=== PATIENT | female | born 1990 | race Two or more races ===

== ENCOUNTER 2022-12-10 10:46 | Outpatient (OUT) | payer OTHER, SELFPAY ==
--- NOTE | 2022-12-10 10:49 | US_ITS ---
[address] [address] Patient Name: ORION HARPER MRN: [id number] date: 1990 Sex: F Assigned Patient Location: Current Patient Location: Accession/Order Number: [id number] Exam Date: 12/10/2022 10:55 Report Date: 12/11/2022 14:02 At the request of: MONTY VERA Procedure: US pelvis w/ transvaginal PROCEDURE: US pelvis w/ transvaginal, 12/10/2022 10:55 AM EDT CLINICAL INDICATIONS: Right-sided pelvic pain 3 para 3 Partial hysterectomy, history of ovarian cyst COMPARISON: 12/21/2021 TECHNIQUE: Transabdominal, transvaginal pelvic sonogram, grayscale color and spectral assessment. FINDINGS: Uterus: Surgically absent. Vaginal cuff is symmetric. Right ovary: 2.5 x 1.6 x 1.7 cm, volume 4 mL. Subcentimeter anechoic cyst noted, benign follicle favored. Normal sonographic morphology. Left ovary: 3.3 x 2.8 x 2.9 cm, volume 14 mL. Left ovarian cyst measure up to 2.2 x 2.2 x 2.5 cm. Single internal septation or daughter cyst is seen. No mural solid component or abnormal vascular pattern. DUPLEX PELVIC VASCULATURE: There is intact flow within the ovarian tissue bilaterally by color-flow assessment. Arterial spectral tracing is identified from within. Right resistive index 0.32, left 0.39. No significant free fluid. US/US pelvis w/ transvaginal IMPRESSION: 1. Surgical absence of the uterus 2. Normal right ovarian sonographic morphology with subcentimeter follicle 3. Dominant left ovarian cyst up to 2.5 cm. Daughter cyst or single internal septation noted. Benign functional cyst favored, not meeting criteria for further characterization. 4. No sonographic sign of adnexal torsion Electronically authenticated by: KYLAH MARTIN Date: 12/11/2022 14:02
== END 2022-12-10 10:47 | disposition home or self-care (01) ==
LOC: US 10:46
PROVIDERS: PCP Family Medicine; Visit Provider Obstetrics & Gynecology
DX: R10.2 Pelvic and perineal pain (principal); N83.202 Unspecified ovarian cyst, left side; N83.201 Unspecified ovarian cyst, right side
CPT/HCPCS: 76830; 76856

== ENCOUNTER 2022-12-27 10:17 | Outpatient (OUT) | payer OTHER, SELFPAY ==
--- NOTE | 2022-12-27 10:30 | CT_ITS ---
The [address] [address] Patient Name: ORION HARPER MRN: [facility]:[id number] date: 1990 Sex: F Assigned Patient Location: CT Current Patient Location: CT Accession/Order Number: [id number] Exam Date: 12/27/2022 10:27 Report Date: 12/27/2022 10:47 At the request of: GIOVANI HAGEN Procedure: CT head/brain wo con CT head/brain wo con, 12/27/2022 10:27 AM EDT, OH001 INDICATION: Nonintractable episodic headache R51.9 COMPARISON: None. TECHNIQUE: CT images of the brain from skull base to vertex, including portions of the face and sinuses, were obtained without contrast. Supplemental 2D reformatted images were generated and reviewed as needed. Dose reduction techniques were achieved by using automated exposure control and/or adjustment of mA and/or kV according to patient size and/or use of iterative reconstruction technique. FINDINGS: The ventricles and sulci are within normal limits for the patient's age. No significant white matter disease or acute ischemia. No mass effect, acute hemorrhage, midline shift, hydrocephalus or exta-axial fluid collection. The basal cisterns are patent. The calvarium appears intact. The visualized paranasal sinuses are clear. The mastoids are clear. CT/CT head/brain wo con IMPRESSION: No CT evidence of acute intracranial abnormality. Electronically authenticated by: MONTA[place] MOLINA Date: 12/27/2022 10:47
== END 2022-12-27 10:18 | disposition home or self-care (01) ==
LOC: CT 10:18
PROVIDERS: PCP Family Medicine; Visit Provider Family Medicine
DX: R51.9 Headache, unspecified (principal)
CPT/HCPCS: 70450

== ENCOUNTER 2023-02-06 11:03 | Outpatient (OUT) | payer OTHER, SELFPAY ==
--- NOTE | 2023-02-06 11:33 | ECG_ITS ---
The [facility] Test Date: 2023-02-06 Pat Name: ORION HARPER Department: Room: - Gender: Female Rn Social Services: : 1990 Requested By: MONTY VERA Order Number: [id number] Reading MD: LUÍS POWELL Measurements Intervals [place] Rate: 70 P: 78 ME: 159 QRS: 72 QRSD: 88 T: 61 QT: 422 QTc: 458 Interpretive Statements SINUS RHYTHM WITH SINUS ARRHYTHMIA Electronically Signed On 02-06-2023 20:04:15 EDT by LUÍS POWELL No previous ECG available for comparison Signed on behalf of LUÍS POWELL On 02-07-2023 11:21:52 EDT by ALINA JUNG
--- NOTE | 2023-02-06 11:41 | PM.PRESUREVA ---
History of Present Illness History of Present Illness Chief complaint: pelvic pain, endometriosis Narrative: Patient presents for preadmission testing. Please see HPI from Dr. Starr dated 01/16/2023. Review of Systems ROS Narrative REVIEW OF SYSTEMS: Negative except as stated in HPI, ten or more systems reviewed. Constitutional: No fever , chills, weakness ENT: No sore throat or epistaxis Cardiovascular: No edema, chest pain, palpitations, or activity intolerance Respiratory: No shortness of breath, cough, or wheezing Musculoskeletal: No joint pain or swelling Genitourinary: No dysuria or hematuria Neurological: No numbness, tingling, weakness, or headache Psychiatric: No mood changes [facility]SH [facility] Medical History (Updated 02/06/23 @ 11:40 by Lindsey Quintero NP) Abnormal involuntary movement ?R25.9 - Unspecified abnormal involuntary movements (ICD-10) Anemia ?D64.9 - Anemia, unspecified (ICD-10) Anxiety ?F41.9 - Anxiety disorder, unspecified (ICD-10) Asthma ?J45.909 - Unspecified asthma, uncomplicated (ICD-10) Attention deficit hyperactivity disorder ?F90.9 - Attention-deficit hyperactivity disorder, unspecified type (ICD-10) Bipolar 1 disorder ?F31.9 - Bipolar disorder, unspecified (ICD-10) Constipation ?K59.00 - Constipation, unspecified (ICD-10) COVID-19 ?U07.1 - COVID-19 (ICD-10) Depression ?F32.A - Depression, unspecified (ICD-10) Diverticulitis ?K57.92 - Diverticulitis of intestine, part unspecified, without perforation or abscess without bleeding (ICD-10) Dizziness ?R42 - Dizziness and giddiness (ICD-10) Dyspareunia Dysphagia ?R13.10 - Dysphagia, unspecified (ICD-10) Dysuria ?R30.0 - Dysuria (ICD-10) Elevated liver enzymes ?R74.8 - Abnormal levels of other serum enzymes (ICD-10) Endometriosis ?N80.9 - Endometriosis, unspecified (ICD-10) Enlarged thyroid ?E04.9 - Nontoxic goiter, unspecified (ICD-10) Gastroparesis ?K31.84 - Gastroparesis (ICD-10) GERD (gastroesophageal reflux disease) ?K21.9 - Gastro-esophageal reflux disease without esophagitis (ICD-10) Gestational hypertension ?O13.9 - Gestational [-induced] hypertension without significant proteinuria, unspecified trimester (ICD-10) Headache ?R51.9 - Headache, unspecified (ICD-10) Heartburn ?R12 - Heartburn (ICD-10) HELLP (hemolytic anemia/elev liver enzymes/low platelets in ) ?O14.20 - HELLP syndrome (HELLP), unspecified trimester (ICD-10) History of blood transfusion ?Z92.89 - Personal history of other medical treatment (ICD-10) Hypercholesterolemia ?E78.00 - Pure hypercholesterolemia, unspecified (ICD-10) Hyperglycemia ?R73.9 - Hyperglycemia, unspecified (ICD-10) Hypersexuality ?F52.8 - Other sexual dysfunction not due to a substance or known physiological condition (ICD-10) IBS (irritable bowel syndrome) ?K58.9 - Irritable bowel syndrome without diarrhea (ICD-10) Insomnia ?G47.00 - Insomnia, unspecified (ICD-10) Kidney stones ?N20.0 - Calculus of kidney (ICD-10) Migraine ?G43.909 - Migraine, unspecified, not intractable, without status migrainosus (ICD-10) Mood swings ?R45.86 - Emotional lability (ICD-10) ENGLISH (nonalcoholic steatohepatitis) ?K75.81 - Nonalcoholic steatohepatitis (ENGLISH) (ICD-10) Osteoarthritis, knee ?M17.9 - Osteoarthritis of knee, unspecified (ICD-10) Ovarian cyst ?N83.209 - Unspecified ovarian cyst, unspecified side (ICD-10) Pelvic pain ?R10.2 - Pelvic and perineal pain (ICD-10) Poor concentration ?R41.840 - Attention and concentration deficit (ICD-10) 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 - depression (ICD-10) PTSD (post-traumatic stress disorder) ?F43.10 - Post-traumatic stress disorder, unspecified (ICD-10) Sciatica ?M54.30 - Sciatica, unspecified side (ICD-10) Sinusitis ?J32.9 - Chronic sinusitis, unspecified (ICD-10) Skin pain ?R20.8 - Other disturbances of skin sensation (ICD-10) Syncope ?R55 - Syncope and collapse (ICD-10) Tachycardia ?R00.0 - Tachycardia, unspecified (ICD-10) Urinary frequency ?R35.0 - Frequency of micturition (ICD-10) Urinary tract infection ?N39.0 - Urinary tract infection, site not specified (ICD-10) Vitamin D deficiency ?E55.9 - Vitamin D deficiency, unspecified (ICD-10) Surgical History (Updated 02/06/23 @ 11:25 by Lindsey Quintero NP) History of section ?Z98.891 - History of uterine scar from previous surgery (ICD-10) History of colonoscopy ?Z98.890 - Other specified postprocedural states (ICD-10) History of esophagogastroduodenoscopy (EGD) ?Z98.890 - Other specified postprocedural states (ICD-10) History of hysterectomy ?Z90.710 - Acquired absence of both cervix and uterus (ICD-10) Family History (Updated 02/06/23 @ 11:25 by Lindsey Quintero NP) Other Family history of diabetes mellitus Family history of hypertension Family history of ovarian cancer Social History (Updated 02/06/23 @ 11:21 by Lindsey Quintero NP) Within the past year, how often did you have a drink containing alcohol: 2-4 times a month Smoking status: Former smoker Non-prescribed substance use: denies use 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 Highest level of school completed/degree received: high school graduate Meds Home Medications and Allergies Home Medications Medication Instructions Recorded Confirmed Type albuterol sulfate 90 mcg/actuation 2 inh inhalation Q4H PRN shortness 02/06/23 02/06/23 History aerosol inhaler of breath or wheezing alprazolam 0.25 mg tablet 0.25 mg PO BID 02/06/23 02/06/23 History bupropion HCl 150 mg tablet,12 hr 150 mg PO BID 02/06/23 02/06/23 History sustained-release cariprazine 4.5 mg capsule 4.5 mg PO QPM 02/06/23 02/06/23 History (Vraylar) epinephrine 0.3 mg/0.3 mL 0.3 ml subcut Q4H PRN anaphylaxis 02/06/23 02/06/23 History injection, auto-injector lisdexamfetamine 50 mg capsule 50 mg PO QDAY 02/06/23 02/06/23 History (Vyvanse) Allergies Allergy/AdvReac Type Severity Reaction Status Date / Time cat dander Allergy Verified 02/06/23 11:16 Iodinated Contrast Media Allergy Hives Verified 02/06/23 11:16 Exam Narrative Exam Narrative: Constitutional: Awake, alert, comfortable, well-appearing, nontoxic, interactive, vital signs as charted Head: Normocephalic, atraumatic Neck: Supple, normal appearance, normal range of motion, no meningeal signs, no lymphadenopathy Respiratory: No respiratory distress, breath sounds clear Cardiovascular: Regular rate and rhythm, strong and regular heart tones Abdomen: Nontender, normal bowel sounds, soft, no CVA tenderness Musculoskeletal: Normal gait, no swelling or edema Skin: No rashes or induration, no lesions, only visible skin inspected Neuro: No neurological deficits, normal sensation Psychiatric: Oriented ?3, normal affect Assessment and Plan Assessment and Plan (1) Endometriosis: (2) Dyspareunia: (3) Pelvic pain: Plan Diagnostic laparoscopy, possible LEENA, possible FOE, possible bilateral salpingo-oophorectomy scheduled with Dr. Starr 02/10/2023
== END 2023-02-06 11:04 | disposition home or self-care (01) ==
PROVIDERS: PCP Family Medicine; Visit Provider Obstetrics & Gynecology
DX: Z01.818 Encounter for other preprocedural examination (principal); R10.2 Pelvic and perineal pain; N94.10 Unspecified dyspareunia; N80.9 Endometriosis, unspecified
CPT/HCPCS: 93005; G0463

== ENCOUNTER 2023-02-06 14:03 | Outpatient (OUT) | payer OTHER, SELFPAY ==
[2023-02-06 14:41] LABS: Estimated Average Glucose 85 mg/dL; Glycohemoglobin A1C 4.6 % (4.5-6.2)
[2023-02-06 14:46] LABS: Alanine Aminotransferase 35 U/L (14-59); Albumin Globulin Ratio 1.3; Albumin Level 4.4 g/dL (3.4-5.0); Alkaline Phosphatase 70 U/L (46-116); Aspartate Amino Transferase 17 U/L (15-37); BUN Creatinine Ratio 10.9; Bilirubin Total 0.7 mg/dL (0.2-1.0); Calcium 9.3 mg/dL (8.5-10.1); Carbon Dioxide 28.2 mmol/L (21.0-32.0); Chloride 104 mmol/L (98-107); Chol HDL Ratio 2.8; Cholesterol 180 mg/dL (<=200); Estimated GFR (African America >60 (>=60); Estimated GFR (Non-African Ame >60 (>=60); Globulin 3.5 g/dL; Glucose 88 mg/dL (74-106); HDL Cholesterol 65 mg/dL (40-60); Potassium 3.2 mmol/L (3.5-5.1); Sodium 139 mmol/L (136-145); Total Protein 7.9 g/dL (6.4-8.2); Triglycerides 79 mg/dL (<=150); VLDL CHOLESTEROL 15.8 mg/dL
== END 2023-02-06 14:04 | disposition home or self-care (01) ==
LOC: LAB 14:04
PROVIDERS: PCP Family Medicine; Visit Provider Physician Assistant
DX: Z00.00 Encounter for general adult medical examination without abnormal findings (principal); Z01.818 Encounter for other preprocedural examination; R10.2 Pelvic and perineal pain; N94.10 Unspecified dyspareunia; N80.9 Endometriosis, unspecified; R74.8 Abnormal levels of other serum enzymes; E78.00 Pure hypercholesterolemia, unspecified; R73.9 Hyperglycemia, unspecified; E55.9 Vitamin D deficiency, unspecified
CPT/HCPCS: 36415; 80053; 80061; 82306; 83036; 93005; G0463

== ENCOUNTER 2023-02-10 08:41 | Day surgery (SDC) | payer OTHER, SELFPAY ==
--- NOTE | 2023-02-06 11:26 | ECG_ITS ---
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
[2023-02-06 11:33] VITALS: BP 121/85; PULSE 74; RESP 16; TEMP 36.2; O2SAT 100; BMI 26.2
[2023-02-10] VITALS (10 sets, daily range): BP systolic 107–127; BP diastolic 65–84; PULSE 75–103; RESP 11–18; TEMP 36.3–36.8; O2SAT 97–100; BMI 25.9
[2023-02-10 08:54] LABS: Basophils Percent Auto 0.3 % (0.2-2.0); Eosinophils Absolute Auto 0.2 10^3/uL (0.0-0.7); Hematocrit 41.7 % (36.0-48.0); Hemoglobin 14.4 g/dL (12.0-16.0); Immature Granulocytes Abs Auto 0.01 10^3/uL (0.00-0.03); Immature Granulocytes Pct Auto 0.2 % (0.0-0.5); Lymphocytes Absolute Auto 2.2 10^3/uL (1.2-3.8); Lymphocytes Percent Auto 36.1 % (20.5-60.0); Mean Corpuscular HGB Conc 34.5 g/dL (29.9-35.2); Mean Corpuscular Hemoglobin 32.9 pg (26.7-34.0); Mean Corpuscular Volume 95.2 fL (81.0-99.0); Mean Platelet Volume 11.3 fL (9.5-13.5); Monocytes Absolute Auto 0.3 10^3/uL (0.3-0.8); Monocytes Percent Auto 5.7 % (1.7-12.0); Neutrophils Absolute Auto 3.2 10^3/uL (1.4-6.5); Neutrophils Percent Auto 53.7 % (43.0-75.0); Platelet Count 213 10^3/uL (150-450); Red Blood Count 4.38 10^6/uL (4.20-5.40); Red Cell Distribution Width 11.9 % (11.0-15.0)
[2023-02-10] MEDS: LACTATED RINGER'S SOLUTION 1,000 ML 50 ML IV (09:32)
[2023-02-10] MEDS: LACTATED RINGER'S SOLUTION 1,000 ML 150 ML IV (12:10)
--- NOTE | 2023-02-10 12:10 | PM.ONB ---
Brief Operative Note Date of procedure: 02/10/23 Pre-op diagnosis: pelvic pain Post-op diagnosis: same as pre-op Procedure: NAME OF PROCEDURE: [diagnostic laparoscopy ] PROCEDURE: The patient was taken back to the Operating Room where she was placed in dorsal lithotomy position after given general anesthesia. The patient was prepped and draped in normal sterile fashion. A sponge stick was placed into the patient's vagina. Attention was turned to the patient's abdomen, where a small umbilical incision was made. The fascia was tented using Harvey clamps and the fascia was entered sharply. Confirmation of intraabdominal placement of the 10 mm port was confirmed under direct visualization using a laparoscope. The patient's abdomen was then insufflated using CO2 gas with approximately 4 liters. A second port was placed left laterally, this was done under direct visualization with a 5 mm port. Survey of the patient's abdomen demonstrated normal liver and gallbladder. Survey of the patient's pelvic anatomy demonstrated normal appearing rt and lt ovary, absent uterus and tubes. No endometrial implants could be noted, no evidence of any pelvic disease was seen, normal appearing pelvic cavity. All instruments were removed from the patient's abdomen. The patient's abdomen was deinsufflated of CO2 gas. The patient tolerated the procedure well. Sponge stick was removed from the patient's vagina. The patient's infraumbilical fascia was closed using #0 Vicryl on a GI needle. The patient's skin was closed laterally and infraumbilically using 4-0 Vicryl. The patient tolerated the procedure well. Sponge, lap and needle counts were correct x 2. The patient was taken to Recovery Room in stable condition.Clips from prior surgery noted adhered to bladder, the clips were grasped and gently removed Anesthesia: GUERO Surgeon: Darwin Starr Special Effects Artist: Melly Glover Estimated blood loss (mL): 5 Pathology: none sent Condition: stable Disposition: PACU
[2023-02-10] MEDS: HYDROCODONE/ACET 5-325 MG TABLET 1 TAB PO (13:02)
== END 2023-02-10 13:59 | disposition home or self-care (01) ==
PROVIDERS: PCP Family Medicine; Visit Provider Obstetrics & Gynecology
PROC: (CPT 49320; principal; 2023-02-10 10:05)
DX: R10.2 Pelvic and perineal pain (principal); N94.10 Unspecified dyspareunia; N80.9 Endometriosis, unspecified; F41.9 Anxiety disorder, unspecified; J45.909 Unspecified asthma, uncomplicated; F31.9 Bipolar disorder, unspecified; Z86.16 Personal history of COVID-19; K21.9 Gastro-esophageal reflux disease without esophagitis; R12 Heartburn; E78.00 Pure hypercholesterolemia, unspecified; G47.00 Insomnia, unspecified; Z87.442 Personal history of urinary calculi; M17.9 Osteoarthritis of knee, unspecified; Z87.440 Personal history of urinary (tract) infections; Z87.891 Personal history of nicotine dependence; Z90.711 Acquired absence of uterus with remaining cervical stump
CPT/HCPCS: 49320; 36415; 85025; 93005; J2704

== ENCOUNTER 2023-02-28 08:08 | Emergency (ER) | payer OTHER, SELFPAY ==
[2023-02-28 08:14] VITALS: BP 143/102; PULSE 100; RESP 18; TEMP 36.5; O2SAT 100; BMI 26.5
--- NOTE | 2023-02-28 08:25 | ED_ITS ---
HPI - SOB/Dyspnea General Chief Complaint: Shortness of Breath/Dyspnea Stated Complaint: SHORTNESS OF BREATH Time Seen by Provider: 02/28/23 08:24 Source: patient Mode of arrival: walk-in Limitations: no limitations Related Data Home Medications Medication Instructions Recorded Confirmed albuterol sulfate 90 mcg/actuation 2 inh inhalation Q4H PRN shortness 02/06/23 02/06/23 aerosol inhaler of breath or wheezing alprazolam 0.25 mg tablet 0.25 mg PO BID 02/06/23 02/06/23 bupropion HCl 150 mg tablet,12 hr 150 mg PO BID 02/06/23 02/06/23 sustained-release cariprazine 4.5 mg capsule 4.5 mg PO QPM 02/06/23 02/06/23 (Vraylar) epinephrine 0.3 mg/0.3 mL 0.3 ml subcut Q4H PRN anaphylaxis 02/06/23 02/06/23 injection, auto-injector lisdexamfetamine 50 mg capsule 50 mg PO QDAY 02/06/23 02/06/23 (Vyvanse) Previous Rx's Medication Instructions Recorded hydrocodone 5 mg-acetaminophen 325 1 tab PO Q4H PRN pain 4 days #16 02/10/23 mg tablet tabs ibuprofen 800 mg tablet 800 mg PO Q8H PRN pain 14 days #40 02/10/23 tabs Allergies Allergy/AdvReac Type Severity Reaction Status Date / Time cat dander Allergy Verified 02/28/23 08:12 Iodinated Contrast Media Allergy Hives Verified 02/28/23 08:12 [facility] Medical History (Updated 02/06/23 @ 11:40 by Lindsey Quintero NP) Abnormal involuntary movement ?R25.9 - Unspecified abnormal involuntary movements (ICD-10) Anemia ?D64.9 - Anemia, unspecified (ICD-10) Anxiety ?F41.9 - Anxiety disorder, unspecified (ICD-10) Asthma ?J45.909 - Unspecified asthma, uncomplicated (ICD-10) Attention deficit hyperactivity disorder ?F90.9 - Attention-deficit hyperactivity disorder, unspecified type (ICD-10) Bipolar 1 disorder ?F31.9 - Bipolar disorder, unspecified (ICD-10) Constipation ?K59.00 - Constipation, unspecified (ICD-10) COVID-19 ?U07.1 - COVID-19 (ICD-10) Depression ?F32.A - Depression, unspecified (ICD-10) Diverticulitis ?K57.92 - Diverticulitis of intestine, part unspecified, without perforation or abscess without bleeding (ICD-10) Dizziness ?R42 - Dizziness and giddiness (ICD-10) Dyspareunia Dysphagia ?R13.10 - Dysphagia, unspecified (ICD-10) Dysuria ?R30.0 - Dysuria (ICD-10) Elevated liver enzymes ?R74.8 - Abnormal levels of other serum enzymes (ICD-10) Endometriosis ?N80.9 - Endometriosis, unspecified (ICD-10) Enlarged thyroid ?E04.9 - Nontoxic goiter, unspecified (ICD-10) Gastroparesis ?K31.84 - Gastroparesis (ICD-10) GERD (gastroesophageal reflux disease) ?K21.9 - Gastro-esophageal reflux disease without esophagitis (ICD-10) Gestational hypertension ?O13.9 - Gestational [-induced] hypertension without significant proteinuria, unspecified trimester (ICD-10) Headache ?R51.9 - Headache, unspecified (ICD-10) Heartburn ?R12 - Heartburn (ICD-10) HELLP (hemolytic anemia/elev liver enzymes/low platelets in ) ?O14.20 - HELLP syndrome (HELLP), unspecified trimester (ICD-10) History of blood transfusion ?Z92.89 - Personal history of other medical treatment (ICD-10) Hypercholesterolemia ?E78.00 - Pure hypercholesterolemia, unspecified (ICD-10) Hyperglycemia ?R73.9 - Hyperglycemia, unspecified (ICD-10) Hypersexuality ?F52.8 - Other sexual dysfunction not due to a substance or known physiological condition (ICD-10) IBS (irritable bowel syndrome) ?K58.9 - Irritable bowel syndrome without diarrhea (ICD-10) Insomnia ?G47.00 - Insomnia, unspecified (ICD-10) Kidney stones ?N20.0 - Calculus of kidney (ICD-10) Migraine ?G43.909 - Migraine, unspecified, not intractable, without status migrainosus (ICD-10) Mood swings ?R45.86 - Emotional lability (ICD-10) ENGLISH (nonalcoholic steatohepatitis) ?K75.81 - Nonalcoholic steatohepatitis (ENGLISH) (ICD-10) Osteoarthritis, knee ?M17.9 - Osteoarthritis of knee, unspecified (ICD-10) Ovarian cyst ?N83.209 - Unspecified ovarian cyst, unspecified side (ICD-10) Pelvic pain ?R10.2 - Pelvic and perineal pain (ICD-10) Poor concentration ?R41.840 - Attention and concentration deficit (ICD-10) 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 - depression (ICD-10) PTSD (post-traumatic stress disorder) ?F43.10 - Post-traumatic stress disorder, unspecified (ICD-10) Sciatica ?M54.30 - Sciatica, unspecified side (ICD-10) Sinusitis ?J32.9 - Chronic sinusitis, unspecified (ICD-10) Skin pain ?R20.8 - Other disturbances of skin sensation (ICD-10) Syncope ?R55 - Syncope and collapse (ICD-10) Tachycardia ?R00.0 - Tachycardia, unspecified (ICD-10) Urinary frequency ?R35.0 - Frequency of micturition (ICD-10) Urinary tract infection ?N39.0 - Urinary tract infection, site not specified (ICD-10) Vitamin D deficiency ?E55.9 - Vitamin D deficiency, unspecified (ICD-10) Surgical History (Updated 02/06/23 @ 11:25 by Lindsey Quintero NP) History of section ?Z98.891 - History of uterine scar from previous surgery (ICD-10) History of colonoscopy ?Z98.890 - Other specified postprocedural states (ICD-10) History of esophagogastroduodenoscopy (EGD) ?Z98.890 - Other specified postprocedural states (ICD-10) History of hysterectomy ?Z90.710 - Acquired absence of both cervix and uterus (ICD-10) Family History (Updated 02/06/23 @ 11:25 by Lindsey Quintero NP) Other Family history of diabetes mellitus Family history of hypertension Family history of ovarian cancer Social History (Updated 02/06/23 @ 11:21 by Lindsey Quintero NP) Within the past year, how often did you have a drink containing alcohol: 2-4 times a month Smoking status: Former smoker Non-prescribed substance use: denies use 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 Highest level of school completed/degree received: high school graduate Exam Constitutional Vital Signs, click to edit/add: Last Vital Signs Temp 97.7 F 02/28/23 08:14 Pulse 100 H 02/28/23 08:14 Resp 18 02/28/23 08:14 BP 143/102 H 02/28/23 08:14 Pulse Ox 100 02/28/23 08:14 O2 Del Method Room Air 02/28/23 08:14 Course Vital Signs Vital signs: Vital Signs Temperature 97.7 F 02/28/23 08:14 Pulse Rate 100 H 02/28/23 08:14 Respiratory Rate 18 02/28/23 08:14 Blood Pressure 143/102 H 02/28/23 08:14 Pulse Oximetry 100 02/28/23 08:14 Oxygen Delivery Method Room Air 02/28/23 08:14 Temperature 97.7 F 02/28/23 08:14 Pulse Rate 100 H 02/28/23 08:14 Respiratory Rate 18 02/28/23 08:14 Blood Pressure 143/102 H 02/28/23 08:14 Pulse Oximetry 100 02/28/23 08:14 Oxygen Delivery Method Room Air 02/28/23 08:14 Discharge Plan Discharge Chief Complaint: Shortness of Breath/Dyspnea Prescriptions / Home Meds: No Action albuterol sulfate 90 mcg/actuation HFA aerosol inhaler 2 inh INHALATION Q4H PRN (Reason: shortness of breath or wheezing) alprazolam 0.25 mg tablet 0.25 mg PO BID bupropion HCl 150 mg tablet sustained-release 12 hr 150 mg PO BID Vraylar 4.5 mg capsule 4.5 mg PO QPM epinephrine 0.3 mg/0.3 mL auto-injector 0.3 ml subcut Q4H PRN (Reason: anaphylaxis) lisdexamfetamine [Vyvanse] 50 mg capsule 50 mg PO QDAY ibuprofen 800 mg tablet 800 mg PO Q8H PRN (Reason: pain) 14 Days Qty: 40 0RF hydrocodone-acetaminophen 5-325 mg tablet 1 tab PO Q4H PRN (Reason: pain) 4 Days Qty: 16 0RF Referrals: GIOVANI HAGEN [Primary Care Provider] - 1 week
--- NOTE | 2023-02-28 08:30 | ED_ITS ---
HPI - General Adult General Chief complaint: Shortness of Breath/Dyspnea Stated complaint: SHORTNESS OF BREATH Time Seen by Provider: 02/28/23 08:24 Source: patient Mode of arrival: walk-in Limitations: no limitations History of Present Illness HPI narrative: this patient is here for evaluation of multiple complaints. She says she was fine yesterday and last night. She states that she did have a couple alcoholic beverages last night. She states that two weeks ago she had laparoscopic surgery for revision of scar tissue after previous section. She says she's been fine since that time. She states that when she woke up this morning started feeling dizzy and then started having severe vomiting at least three episodes and she lost gastric fluids but did not have any diarrhea. She then she had some aching in her central back and left upper chest area. She has a history of diverticulitis but her pain is in the epigastric area today. She denies previous history of pancreatitis or gallbladder disease. She has no pain on the right side of the abdomen. Related Data Home Medications Medication Instructions Recorded Confirmed albuterol sulfate 90 mcg/actuation 2 inh inhalation Q4H PRN shortness 02/06/23 02/06/23 aerosol inhaler of breath or wheezing alprazolam 0.25 mg tablet 0.25 mg PO BID 02/06/23 02/06/23 bupropion HCl 150 mg tablet,12 hr 150 mg PO BID 02/06/23 02/06/23 sustained-release cariprazine 4.5 mg capsule 4.5 mg PO QPM 02/06/23 02/06/23 (Vraylar) epinephrine 0.3 mg/0.3 mL 0.3 ml subcut Q4H PRN anaphylaxis 02/06/23 02/06/23 injection, auto-injector lisdexamfetamine 50 mg capsule 50 mg PO QDAY 02/06/23 02/06/23 (Vyvanse) Previous Rx's Medication Instructions Recorded hydrocodone 5 mg-acetaminophen 325 1 tab PO Q4H PRN pain 4 days #16 02/10/23 mg tablet tabs ibuprofen 800 mg tablet 800 mg PO Q8H PRN pain 14 days #40 02/10/23 tabs Allergies Allergy/AdvReac Type Severity Reaction Status Date / Time cat dander Allergy Verified 02/28/23 08:12 Iodinated Contrast Media Allergy Hives Verified 02/28/23 08:12 [facility] Medical History (Updated 02/28/23 @ 11:02 by Ronald Mckeon MD) Abnormal involuntary movement ?R25.9 - Unspecified abnormal involuntary movements (ICD-10) Anemia ?D64.9 - Anemia, unspecified (ICD-10) Anxiety ?F41.9 - Anxiety disorder, unspecified (ICD-10) Asthma ?J45.909 - Unspecified asthma, uncomplicated (ICD-10) Attention deficit hyperactivity disorder ?F90.9 - Attention-deficit hyperactivity disorder, unspecified type (ICD-10) Bipolar 1 disorder ?F31.9 - Bipolar disorder, unspecified (ICD-10) Constipation ?K59.00 - Constipation, unspecified (ICD-10) COVID-19 ?U07.1 - COVID-19 (ICD-10) Depression ?F32.A - Depression, unspecified (ICD-10) Diverticulitis ?K57.92 - Diverticulitis of intestine, part unspecified, without perforation or abscess without bleeding (ICD-10) Dizziness ?R42 - Dizziness and giddiness (ICD-10) Dyspareunia Dysphagia ?R13.10 - Dysphagia, unspecified (ICD-10) Dysuria ?R30.0 - Dysuria (ICD-10) Elevated liver enzymes ?R74.8 - Abnormal levels of other serum enzymes (ICD-10) Endometriosis ?N80.9 - Endometriosis, unspecified (ICD-10) Enlarged thyroid ?E04.9 - Nontoxic goiter, unspecified (ICD-10) Gastroparesis ?K31.84 - Gastroparesis (ICD-10) GERD (gastroesophageal reflux disease) ?K21.9 - Gastro-esophageal reflux disease without esophagitis (ICD-10) Gestational hypertension ?O13.9 - Gestational [-induced] hypertension without significant proteinuria, unspecified trimester (ICD-10) Headache ?R51.9 - Headache, unspecified (ICD-10) Heartburn ?R12 - Heartburn (ICD-10) HELLP (hemolytic anemia/elev liver enzymes/low platelets in ) ?O14.20 - HELLP syndrome (HELLP), unspecified trimester (ICD-10) History of blood transfusion ?Z92.89 - Personal history of other medical treatment (ICD-10) Hypercholesterolemia ?E78.00 - Pure hypercholesterolemia, unspecified (ICD-10) Hyperglycemia ?R73.9 - Hyperglycemia, unspecified (ICD-10) Hypersexuality ?F52.8 - Other sexual dysfunction not due to a substance or known physiological condition (ICD-10) IBS (irritable bowel syndrome) ?K58.9 - Irritable bowel syndrome without diarrhea (ICD-10) Insomnia ?G47.00 - Insomnia, unspecified (ICD-10) Kidney stones ?N20.0 - Calculus of kidney (ICD-10) Migraine ?G43.909 - Migraine, unspecified, not intractable, without status migrainosus (ICD-10) Mood swings ?R45.86 - Emotional lability (ICD-10) ENGLISH (nonalcoholic steatohepatitis) ?K75.81 - Nonalcoholic steatohepatitis (ENGLISH) (ICD-10) Osteoarthritis, knee ?M17.9 - Osteoarthritis of knee, unspecified (ICD-10) Ovarian cyst ?N83.209 - Unspecified ovarian cyst, unspecified side (ICD-10) Pelvic pain ?R10.2 - Pelvic and perineal pain (ICD-10) Poor concentration ?R41.840 - Attention and concentration deficit (ICD-10) 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 - depression (ICD-10) PTSD (post-traumatic stress disorder) ?F43.10 - Post-traumatic stress disorder, unspecified (ICD-10) Sciatica ?M54.30 - Sciatica, unspecified side (ICD-10) Sinusitis ?J32.9 - Chronic sinusitis, unspecified (ICD-10) Skin pain ?R20.8 - Other disturbances of skin sensation (ICD-10) Syncope ?R55 - Syncope and collapse (ICD-10) Tachycardia ?R00.0 - Tachycardia, unspecified (ICD-10) Urinary frequency ?R35.0 - Frequency of micturition (ICD-10) Urinary tract infection ?N39.0 - Urinary tract infection, site not specified (ICD-10) Vitamin D deficiency ?E55.9 - Vitamin D deficiency, unspecified (ICD-10) Surgical History (Updated 02/06/23 @ 11:25 by Lindsey Quintero NP) History of section ?Z98.891 - History of uterine scar from previous surgery (ICD-10) History of colonoscopy ?Z98.890 - Other specified postprocedural states (ICD-10) History of esophagogastroduodenoscopy (EGD) ?Z98.890 - Other specified postprocedural states (ICD-10) History of hysterectomy ?Z90.710 - Acquired absence of both cervix and uterus (ICD-10) Family History (Updated 02/06/23 @ 11:25 by Lindsey Quintero NP) Other Family history of diabetes mellitus Family history of hypertension Family history of ovarian cancer Social History (Updated 02/06/23 @ 11:21 by Lindsey Quintero NP) Within the past year, how often did you have a drink containing alcohol: 2-4 times a month Smoking status: Former smoker Non-prescribed substance use: denies use 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 Highest level of school completed/degree received: high school graduate Exam Constitutional Vital Signs, click to edit/add: Last Vital Signs Temp 97.7 F 02/28/23 08:14 Pulse 100 H 02/28/23 08:14 Resp 18 02/28/23 08:14 BP 143/102 H 02/28/23 08:14 Pulse Ox 100 02/28/23 08:14 O2 Del Method Room Air 02/28/23 08:14 Course Vital Signs Vital signs: Vital Signs Temperature 97.7 F 02/28/23 08:14 Pulse Rate 100 H 02/28/23 08:14 Respiratory Rate 18 02/28/23 08:14 Blood Pressure 143/102 H 02/28/23 08:14 Pulse Oximetry 100 02/28/23 08:14 Oxygen Delivery Method Room Air 02/28/23 08:14 Temperature 97.7 F 02/28/23 08:14 Pulse Rate 100 H 02/28/23 08:14 Respiratory Rate 18 02/28/23 08:14 Blood Pressure 143/102 H 02/28/23 08:14 Pulse Oximetry 100 02/28/23 08:14 Oxygen Delivery Method Room Air 02/28/23 08:14 Medical Decision Making MDM Narrative Medical decision making narrative: patient's workup included a urinalysis chemistries CT of the abdomen. In synopsis her CT scan shows bilateral nonobstructing stones but no other acute abnormalities. Her white blood cell count is normal the urinalysis does not show any renal disease or complications of obstruction or infection. She did have some relief with treatment. We do not have a specific etiology although she may have passed a stone. I'm recommending that she drink plenty of fluids we'll give her prescription for some Zofran and [place] for severe pain only Discharge Plan Discharge Chief Complaint: Shortness of Breath/Dyspnea Clinical Impression: Bilateral nephrolithiasis Patient Disposition: Home, Self-Care Time of Disposition Decision: 11:01 Prescriptions / Home Meds: No Action albuterol sulfate 90 mcg/actuation HFA aerosol inhaler 2 inh INHALATION Q4H PRN (Reason: shortness of breath or wheezing) alprazolam 0.25 mg tablet 0.25 mg PO BID bupropion HCl 150 mg tablet sustained-release 12 hr 150 mg PO BID Vraylar 4.5 mg capsule 4.5 mg PO QPM epinephrine 0.3 mg/0.3 mL auto-injector 0.3 ml subcut Q4H PRN (Reason: anaphylaxis) lisdexamfetamine [Vyvanse] 50 mg capsule 50 mg PO QDAY ibuprofen 800 mg tablet 800 mg PO Q8H PRN (Reason: pain) 14 Days Qty: 40 0RF hydrocodone-acetaminophen 5-325 mg tablet 1 tab PO Q4H PRN (Reason: pain) 4 Days Qty: 16 0RF Additional Instructions: [place]/Zofran/drink plenty of fluids Stand Alone Forms: Portal Instructions Referrals: GIOVANI HAGEN [Primary Care Provider] - 1 week
--- NOTE | 2023-02-28 08:35 | CT_ITS ---
The [address] [address] Patient Name: ORION HARPER MRN: [id number] date: 1990 Sex: F Assigned Patient Location: ER Current Patient Location: ER Accession/Order Number: [id number] Exam Date: 02/28/2023 09:25 Report Date: 02/28/2023 10:34 At the request of: GÓMEZ PAVON Procedure: CT abdomen pelvis wo con CLINICAL HISTORY: stones. Epigastric pain for the past 3 hours. EXAMINATION: Unenhanced CT scan of the abdomen and pelvis: 02/28/2023. COMPARISON: Enhanced CT scan of the abdomen and pelvis: 09/30/2021. TECHNIQUE: 3 mm axial images from lung bases through ischial tuberosities without intravenous or oral contrast were obtained. Sagittal and coronal reconstructions were also performed. FINDINGS: There are no focal abnormalities of the visualized lung bases. The heart size seems normal. CT ABDOMEN: The liver, spleen, gallbladder, pancreas, adrenal glands appear normal. There are several calcifications along the medullary distribution of the right as well as left kidney and besides there are some nonobstructing calculi in the right as well as left kidney. There is no hydronephrosis, nephrolithiasis, or perinephric fat stranding. There is no definite ureterolithiasis. The abdominal aorta has normal caliber. There is no retroperitoneal or mesenteric adenopathy. The bowel loops are of normal caliber. The appendix seems normal. There are a few scattered diverticula in the colon. CT PELVIS: The bladder is normal. Uterus is not seen. The ovaries appear normal. There is no pelvic adenopathy. There are no discrete focal fluid collections. The images on bone windows demonstrate no gross abnormalities. Incidentally the previously seen hypodense nodule in the right hepatic lobe is difficult to appreciate on this examination. There is a small hypodensity in a similar location in the posterior segment of right hepatic lobe image 21 sequence 3 measuring 6 mm. This previously measured approximately 1.9 cm in the AP dimension and had average Hounsfield units of approximately 8. CT/CT abdomen pelvis wo con IMPRESSION: 1. Findings compatible with probably multiple bilateral nonobstructing renal calculi as well as medullary calcinosis. There is no obstructive uropathy. 2. Cyst in the right hepatic lobe is significantly smaller compared to previous examination. 3. Normal appendix. 4. Diverticulosis without diverticulitis. 5. Prior hysterectomy. Electronically authenticated by: ALBERTO BARAHONA Date: 02/28/2023 10:34
[2023-02-28] MEDS: 0.9 % SODIUM CHLORIDE 1,000 ML 999 ML IV (08:46)
[2023-02-28] MEDS: ONDANSETRON PF 4 MG/2 ML VIAL IV (08:46)
[2023-02-28] MEDS: HYDROMORPHONE HCL 1 MG/ML CARTRIDGE IVP (08:46)
[2023-02-28 09:00] LABS: Basophils Percent Auto 0.5 % (0.2-2.0); Eosinophils Absolute Auto 0.3 10^3/uL (0.0-0.7); Eosinophils Percent Auto 4.2 % (0.9-7.0); Hematocrit 44.9 % (36.0-48.0); Hemoglobin 14.9 g/dL (12.0-16.0); Immature Granulocytes Abs Auto 0.03 10^3/uL (0.00-0.03); Immature Granulocytes Pct Auto 0.5 % (0.0-0.5); Lymphocytes Absolute Auto 2.3 10^3/uL (1.2-3.8); Lymphocytes Percent Auto 38.2 % (20.5-60.0); Mean Corpuscular HGB Conc 33.2 g/dL (29.9-35.2); Mean Corpuscular Hemoglobin 32.5 pg (26.7-34.0); Mean Platelet Volume 11.3 fL (9.5-13.5); Monocytes Absolute Auto 0.3 10^3/uL (0.3-0.8); Monocytes Percent Auto 4.2 % (1.7-12.0); Neutrophils Absolute Auto 3.2 10^3/uL (1.4-6.5); Neutrophils Percent Auto 52.4 % (43.0-75.0); Platelet Count 244 10^3/uL (150-450); Red Blood Count 4.58 10^6/uL (4.20-5.40); White Blood Count 6.1 10^3/uL (4.0-11.0)
[2023-02-28 09:15] LABS: Alanine Aminotransferase 39 U/L (14-59); Albumin Globulin Ratio 1.2; Albumin Level 4.3 g/dL (3.4-5.0); Alkaline Phosphatase 96 U/L (46-116); Anion Gap 13.1; Aspartate Amino Transferase 27 U/L (15-37); BUN Creatinine Ratio 11.5; Bilirubin Total 0.5 mg/dL (0.2-1.0); Calcium 8.7 mg/dL (8.5-10.1); Carbon Dioxide 28.7 mmol/L (21.0-32.0); Chloride 103 mmol/L (98-107); Estimated GFR (African America >60 (>=60); Estimated GFR (Non-African Ame >60 (>=60); Globulin 3.5 g/dL; Glucose 99 mg/dL (74-106); Potassium 3.8 mmol/L (3.5-5.1); Sodium 141 mmol/L (136-145); Total Protein 7.8 g/dL (6.4-8.2)
[2023-02-28 09:18] LABS: Lactate/Lactic Acid 1.8 mmol/L (0.4-2.0)
[2023-02-28 09:48] LABS: Bilirubin Urine NEGATIVE (NEGATIVE); Blood Urine NEGATIVE (NEGATIVE); Clarity Urine CLEAR (CLEAR); Color Urine YELLOW (YELLOW); Glucose Urine UA NEGATIVE (NEGATIVE); Ketones Urine NEGATIVE (NEGATIVE); Leukocyte Esterase Urine NEGATIVE (NEGATIVE); Nitrite Urine NEGATIVE (NEGATIVE); Protein Urine NEGATIVE (NEG/TRACE); pH Urine 6.5 (5.0-9.0)
[2023-02-28 09:50] LABS: Urine Microscopic Indicated NO
[2023-02-28 11:12] VITALS: BP 138/82; O2SAT 100
== END 2023-02-28 11:17 | disposition home or self-care (01) ==
PROVIDERS: Emergency Provider Emergency Medicine Emergency Medical Services; PCP Family Medicine
DX: N20.0 Calculus of kidney (principal); F41.9 Anxiety disorder, unspecified; J45.909 Unspecified asthma, uncomplicated; F31.9 Bipolar disorder, unspecified; F90.9 Attention-deficit hyperactivity disorder, unspecified type; Z86.16 Personal history of COVID-19; K21.9 Gastro-esophageal reflux disease without esophagitis; E78.00 Pure hypercholesterolemia, unspecified; K58.9 Irritable bowel syndrome, unspecified; K75.81 Nonalcoholic steatohepatitis (NASH); F43.10 Post-traumatic stress disorder, unspecified; E55.9 Vitamin D deficiency, unspecified; Z87.440 Personal history of urinary (tract) infections; Z79.899 Other long term (current) drug therapy; Z87.891 Personal history of nicotine dependence
CPT/HCPCS: 36415; 74176; 80053; 81003; 83605; 83690; 85025; 96361; 96374; 96375; 99284; J1170

== ENCOUNTER 2023-03-15 13:50 | Outpatient (OUT) | payer OTHER, SELFPAY ==
[2023-03-15 14:27] LABS: Anion Gap 8.9; BUN Creatinine Ratio 12.6; Calcium 8.8 mg/dL (8.5-10.1); Carbon Dioxide 30.8 mmol/L (21.0-32.0); Chloride 104 mmol/L (98-107); Estimated GFR (African America >60 (>=60); Estimated GFR (Non-African Ame >60 (>=60); Glucose 98 mg/dL (74-106); Potassium 3.7 mmol/L (3.5-5.1); Sodium 140 mmol/L (136-145)
== END 2023-03-15 13:51 | disposition home or self-care (01) ==
LOC: LAB 13:54
PROVIDERS: PCP Family Medicine; Visit Provider Physician Assistant
DX: E55.9 Vitamin D deficiency, unspecified (principal); E87.6 Hypokalemia
CPT/HCPCS: 36415; 80048; 82306

== ENCOUNTER 2023-03-20 14:10 | Emergency (ER) | payer OTHER, SELFPAY ==
--- NOTE | 2023-03-20 | US_ITS ---
The [address] [address] Patient Name: ORION HARPER MRN: [id number] date: 1990 Sex: F Assigned Patient Location: ER Current Patient Location: ER Accession/Order Number: [id number] Exam Date: 03/20/2023 16:00 Report Date: 03/20/2023 17:02 At the request of: BEBETO GIFFORD Procedure: US right upper quadrant EXAM: US right upper quadrant; [id number] HISTORY: epigastric pain; last ate last night per patient TECHNIQUE: Real-time sonography of the right upper quadrant was performed. Color and spectral Doppler were used to assess select abdominal vasculature. COMPARISON: CT abdomen/pelvis 02/28/2023. FINDINGS: PANCREAS: Thickened appearance of the pancreatic parenchyma. GALLBLADDER: Layering echogenic sludge versus tiny gallstones. No evidence of acute cholecystitis. BILIARY DUCTS: Extrahepatic bile duct at the ulysses hepatis measures 11 mm. No significant intrahepatic biliary ductal dilatation. RIGHT KIDNEY: Kidney measures 9.4 x 5.7 x 5.3 cm. The kidney is within normal limits for size and echogenicity. No hydronephrosis, solid lesion, or stones demonstrated. Echogenic medullary pyramids compatible with medullary nephrocalcinosis. LIVER: Within normal limits for size and echogenicity. No focal lesion demonstrated. VASCULATURE: -Antegrade flow in the main portal vein. US/US right upper quadrant IMPRESSION: 1. Dilated CBD measuring up to 11 mm (normal up to 5 mm). Differential includes ampullary dysfunction versus distal stenosis or obstruction. Correlate with laboratory analysis and consider MRCP for further evaluation. 2. Layering echogenic sludge versus tiny gallstones. No evidence of acute cholecystitis. 3. Medullary nephrocalcinosis. 4. Thickened appearance of the pancreas which could be the baseline appearance versus the sequela of pancreatitis. Electronically authenticated by: RAKESH MCKEON Date: 03/20/2023 17:02
[2023-03-20 14:23] VITALS: BP 135/99; PULSE 79; RESP 18; TEMP 36.5; O2SAT 96; BMI 26.8
--- NOTE | 2023-03-20 15:32 | ED.ABDPAIN1 ---
HPI - Abdominal Pain General Chief Complaint: Abdominal Pain Stated Complaint: ABDOMINAL PAIN Time Seen by Provider: 03/20/23 14:28 Source: patient Mode of arrival: walk-in History of Present Illness HPI narrative: Patient is a 32-year-old female who presents to the emergency department for the evaluation of epigastric abdominal pain that began 3 days ago. Patient was seen in this emergency department 3 weeks ago for the same. She had a CT scan that was unremarkable and was discharged home on medication. She states when the pain began 3 days ago, she used leftover medication from her previous ER visit with improvement but since yesterday the pain has been unbearable. She reports approximately 10 episodes of emesis today. She states she was recently taken off of her Wegovy and saw a rubber tire curer at the [facility] who told her she may have gastroparesis from this. She states she was not told she would have any severe pain with gastroparesis. She is not currently on any medications for this. She is not concerned for . She has had no fevers. She has had mild cough, no diarrhea or urinary symptoms. Related Data Home Medications Medication Instructions Recorded Confirmed albuterol sulfate 90 mcg/actuation 2 inh inhalation Q4H PRN shortness 02/06/23 02/06/23 aerosol inhaler of breath or wheezing alprazolam 0.25 mg tablet 0.25 mg PO BID 02/06/23 02/06/23 bupropion HCl 150 mg tablet,12 hr 150 mg PO BID 02/06/23 02/06/23 sustained-release cariprazine 4.5 mg capsule 4.5 mg PO QPM 02/06/23 02/06/23 (Vraylar) epinephrine 0.3 mg/0.3 mL 0.3 ml subcut Q4H PRN anaphylaxis 02/06/23 02/06/23 injection, auto-injector lisdexamfetamine 50 mg capsule 50 mg PO QDAY 02/06/23 02/06/23 (Vyvanse) hydrocodone 5 mg-acetaminophen 325 1 tab PO Q6H PRN pain 02/28/23 02/28/23 mg tablet ondansetron 4 mg disintegrating 4 mg PO Q8H PRN nausea and vomiting 02/28/23 02/28/23 tablet Previous Rx's Medication Instructions Recorded hydrocodone 5 mg-acetaminophen 325 1 tab PO Q4H PRN pain 4 days #16 02/10/23 mg tablet tabs ibuprofen 800 mg tablet 800 mg PO Q8H PRN pain 14 days #40 02/10/23 tabs Allergies Allergy/AdvReac Type Severity Reaction Status Date / Time cat dander Allergy Verified 02/28/23 08:12 Iodinated Contrast Media Allergy Hives Verified 02/28/23 08:12 Review of Systems ROS Constitutional Denies: fever or chills Ears, nose, mouth, and throat Denies: throat pain or nasal congestion Cardiovascular Denies: chest pain Respiratory Reports: cough; Denies: shortness of breath Gastrointestinal Reports: abdominal pain, nausea and vomiting; Denies: diarrhea Genitourinary Denies: painful urination Musculoskeletal Denies: back pain Integumentary/Breast Denies: rash Neurological Denies: headache Hematologic/Lymphatic Denies: easy bruising [facility] Medical History (Updated 03/20/23 @ 18:33 by VINH Monaco) 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 - depression (ICD-10) Ovarian cyst ?N83.209 - Unspecified ovarian cyst, unspecified side (ICD-10) HELLP (hemolytic anemia/elev liver enzymes/low platelets in ) ?O14.20 - HELLP syndrome (HELLP), unspecified trimester (ICD-10) Gestational hypertension ?O13.9 - Gestational [-induced] hypertension without significant proteinuria, unspecified trimester (ICD-10) Dizziness ?R42 - Dizziness and giddiness (ICD-10) Vitamin D deficiency ?E55.9 - Vitamin D deficiency, unspecified (ICD-10) Urinary tract infection ?N39.0 - Urinary tract infection, site not specified (ICD-10) Urinary frequency ?R35.0 - Frequency of micturition (ICD-10) Hypercholesterolemia ?E78.00 - Pure hypercholesterolemia, unspecified (ICD-10) Osteoarthritis, knee ?M17.9 - Osteoarthritis of knee, unspecified (ICD-10) Gastroparesis ?K31.84 - Gastroparesis (ICD-10) GERD (gastroesophageal reflux disease) ?K21.9 - Gastro-esophageal reflux disease without esophagitis (ICD-10) Dysuria ?R30.0 - Dysuria (ICD-10) Enlarged thyroid ?E04.9 - Nontoxic goiter, unspecified (ICD-10) Headache ?R51.9 - Headache, unspecified (ICD-10) Skin pain ?R20.8 - Other disturbances of skin sensation (ICD-10) Sciatica ?M54.30 - Sciatica, unspecified side (ICD-10) Poor concentration ?R41.840 - Attention and concentration deficit (ICD-10) ENGLISH (nonalcoholic steatohepatitis) ?K75.81 - Nonalcoholic steatohepatitis (ENGLISH) (ICD-10) Kidney stones ?N20.0 - Calculus of kidney (ICD-10) Mood swings ?R45.86 - Emotional lability (ICD-10) Sinusitis ?J32.9 - Chronic sinusitis, unspecified (ICD-10) Insomnia ?G47.00 - Insomnia, unspecified (ICD-10) Hypersexuality ?F52.8 - Other sexual dysfunction not due to a substance or known physiological condition (ICD-10) Hyperglycemia ?R73.9 - Hyperglycemia, unspecified (ICD-10) Elevated liver enzymes ?R74.8 - Abnormal levels of other serum enzymes (ICD-10) Dysphagia ?R13.10 - Dysphagia, unspecified (ICD-10) Diverticulitis ?K57.92 - Diverticulitis of intestine, part unspecified, without perforation or abscess without bleeding (ICD-10) Bipolar 1 disorder ?F31.9 - Bipolar disorder, unspecified (ICD-10) Attention deficit hyperactivity disorder ?F90.9 - Attention-deficit hyperactivity disorder, unspecified type (ICD-10) Abnormal involuntary movement ?R25.9 - Unspecified abnormal involuntary movements (ICD-10) Endometriosis ?N80.9 - Endometriosis, unspecified (ICD-10) Dyspareunia Pelvic pain ?R10.2 - Pelvic and perineal pain (ICD-10) History of blood transfusion ?Z92.89 - Personal history of other medical treatment (ICD-10) Anemia ?D64.9 - Anemia, unspecified (ICD-10) PTSD (post-traumatic stress disorder) ?F43.10 - Post-traumatic stress disorder, unspecified (ICD-10) Depression ?F32.A - Depression, unspecified (ICD-10) Anxiety ?F41.9 - Anxiety disorder, unspecified (ICD-10) COVID-19 ?U07.1 - COVID-19 (ICD-10) Asthma ?J45.909 - Unspecified asthma, uncomplicated (ICD-10) Migraine ?G43.909 - Migraine, unspecified, not intractable, without status migrainosus (ICD-10) Heartburn ?R12 - Heartburn (ICD-10) Constipation ?K59.00 - Constipation, unspecified (ICD-10) IBS (irritable bowel syndrome) ?K58.9 - Irritable bowel syndrome without diarrhea (ICD-10) Tachycardia ?R00.0 - Tachycardia, unspecified (ICD-10) Syncope ?R55 - Syncope and collapse (ICD-10) Surgical History (Updated 02/06/23 @ 11:25 by Lindsey Quintero NP) History of esophagogastroduodenoscopy (EGD) ?Z98.890 - Other specified postprocedural states (ICD-10) History of colonoscopy ?Z98.890 - Other specified postprocedural states (ICD-10) History of hysterectomy ?Z90.710 - Acquired absence of both cervix and uterus (ICD-10) History of section ?Z98.891 - History of uterine scar from previous surgery (ICD-10) Family History (Updated 02/06/23 @ 11:25 by Lindsey Quintero NP) Other Family history of diabetes mellitus Family history of hypertension Family history of ovarian cancer Social History Within the past year, how often did you have a drink containing alcohol: 2-4 times a month Smoking status: Former smoker Non-prescribed substance use: denies use 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 No McBurney's point tenderness in the right lower quadrant Extremities: Moves extremities equally Psych: Normal mood and affect Neuro: No focal neuro deficit Skin: Warm, dry, intact Constitutional Vital Signs, click to edit/add: Last Vital Signs Temp 99.2 F 03/21/23 18:54 Pulse 93 H 03/21/23 18:54 Resp 18 03/21/23 18:54 BP 104/75 03/21/23 18:54 Pulse Ox 97 03/21/23 18:54 O2 Del Method Room Air 03/21/23 18:54 Course Vital Signs Vital signs: Vital Signs Temperature 97.7 F 03/20/23 14:23 Pulse Rate 79 03/20/23 14:23 Respiratory Rate 18 03/20/23 14:23 Blood Pressure 135/99 H 03/20/23 14:23 Pulse Oximetry 96 03/20/23 14:23 Temperature 99.2 F 03/21/23 18:54 Pulse Rate 93 H 03/21/23 18:54 Respiratory Rate 18 03/21/23 18:54 Blood Pressure 104/75 03/21/23 18:54 Pulse Oximetry 97 03/21/23 18:54 Oxygen Delivery Method Room Air 03/21/23 18:54 MDM - Abdominal Pain MDM Narrative Medical decision making narrative: Patient treated with IV fluids, pain medication, nausea medication. She had no episodes of emesis in the ER, she was remedicated for pain with Dilaudid and Zofran. Lab studies show mild leukocytosis with transaminitis, elevated lipase and elevated bilirubin. Ultrasound of the right upper quadrant shows pancreas is edematous, there are multiple small gallstones and gallbladder sludge noted in the gallbladder although there is not a stone noted specifically in the common bile duct on ultrasound. Common bile duct is dilated at 11 mm. I discussed the case with Dr. Mann for general surgery and we do not have the ability to do an ERCP or have any GI services at this facility so he recommended transfer to tertiary care facility. Patient is known to Dr. Corey at [facility] for her history of gastroparesis, she is comfortable with treatment plan and transfer to [facility]. Discussed the case with transfer line and patient was accepted to [facility] where they have ERCP services by Dr. Vega ([id number]) for GI and hospitalist service, Dr. Fragoso ([id number]). Zosyn given after discussion with Dr. Vega and Protonix was added at the request of Dr Fragoso. Patient is stable at this time pending transfer, critical care time 35 minutes. Medical Records Attestation: I reviewed the patient's medical records. Lab Data Attestation: I reviewed the patient's lab results. Labs: Lab Results 03/20/23 03/20/23 03/20/23 Range/Units 15:44 17:38 17:56 WBC 12.3 H (4.0-11.0) 10^3/uL RBC 4.87 (4.20-5.40) 10^6/uL Hgb 15.8 (12.0-16.0) g/dL Hct 47.0 (36.0-48.0) % MCV 96.5 (81.0-99.0) fL MCH 32.4 (26.7-34.0) pg MCHC 33.6 (29.9-35.2) g/dL RDW 12.6 (11.0-15.0) % Plt Count 255 (150-450) 10^3/uL MPV 11.0 (9.5-13.5) fL Neut % (Auto) 86.8 H (43.0-75.0) % Lymph % (Auto) 9.6 L (20.5-60.0) % Taylor % (Auto) 2.8 (1.7-12.0) % Eos % (Auto) 0.4 L (0.9-7.0) % Baso % (Auto) 0.2 (0.2-2.0) % Neut # (Auto) 10.7 H (1.4-6.5) 10^3/uL Lymph # (Auto) 1.2 (1.2-3.8) 10^3/uL Taylor # (Auto) 0.3 (0.3-0.8) 10^3/uL Eos # (Auto) 0.1 (0.0-0.7) 10^3/uL Baso # (Auto) 0.0 (0.0-0.1) 10^3/uL Abs Immat Gran (auto) 0.03 (0.00-0.03) 10^3/uL Imm/Tot Granulo (auto) 0.2 (0.0-0.5) % Sodium 138 (136-145) mmol/L Potassium 3.7 (3.5-5.1) mmol/L Chloride 101 (98-107) mmol/L Carbon Dioxide 28.1 (21.0-32.0) mmol/L Anion Gap 12.6 BUN 13.0 (7.0-18.0) mg/dL Creatinine 0.81 (0.55-1.02) mg/dL Est GFR ( Amer) >60 (>=60) Est GFR (Non-Af Amer) >60 (>=60) BUN/Creatinine Ratio 16.0 Glucose 119 H (74-106) mg/dL Lactate 2.3 H* 1.3 (0.4-2.0) mmol/L Calcium 8.9 (8.5-10.1) mg/dL Total Bilirubin 1.3 H (0.2-1.0) mg/dL AST 276 H (15-37) U/L ALT 475 H (14-59) U/L Alkaline Phosphatase 158 H (46-116) U/L Total Protein 8.5 H (6.4-8.2) g/dL Albumin 4.3 (3.4-5.0) g/dL Globulin 4.2 g/dL Albumin/Globulin Ratio 1.0 Lipase 2869.0 H* (16.0-77.0) U/L Serum HCG, Qual Negative (NEGATIVE) Urine Color Lt. yellow (YELLOW) Urine Clarity Clear (CLEAR) Urine pH 7.5 (5.0-9.0) Ur Specific [place] 1.020 (1.005-1.025) Urine Protein Negative (NEG/TRACE) mg/dL Urine Glucose (UA) Negative (NEGATIVE) mg/dL Urine Ketones 40 A (NEGATIVE) mg/dL Urine Occult Blood Negative (NEGATIVE) Urine Nitrite Negative (NEGATIVE) Urine Bilirubin Negative (NEGATIVE) Urine Urobilinogen 0.2 (0.2-1.0) EU/dL Ur Leukocyte Esterase Negative (NEGATIVE) 03/21/23 Range/Units 05:59 WBC 10.9 (4.0-11.0) 10^3/uL RBC 3.99 L (4.20-5.40) 10^6/uL Hgb 12.9 (12.0-16.0) g/dL Hct 38.7 (36.0-48.0) % MCV 97.0 (81.0-99.0) fL MCH 32.3 (26.7-34.0) pg MCHC 33.3 (29.9-35.2) g/dL RDW 12.4 (11.0-15.0) % Plt Count 209 (150-450) 10^3/uL MPV 10.5 (9.5-13.5) fL Neut % (Auto) 73.7 (43.0-75.0) % Lymph % (Auto) 19.7 L (20.5-60.0) % Taylor % (Auto) 5.2 (1.7-12.0) % Eos % (Auto) 0.9 (0.9-7.0) % Baso % (Auto) 0.2 (0.2-2.0) % Neut # (Auto) 8.0 H (1.4-6.5) 10^3/uL Lymph # (Auto) 2.2 (1.2-3.8) 10^3/uL Taylor # (Auto) 0.6 (0.3-0.8) 10^3/uL Eos # (Auto) 0.1 (0.0-0.7) 10^3/uL Baso # (Auto) 0.0 (0.0-0.1) 10^3/uL Abs Immat Gran (auto) 0.03 (0.00-0.03) 10^3/uL Imm/Tot Granulo (auto) 0.3 (0.0-0.5) % Sodium 136 (136-145) mmol/L Potassium 3.5 (3.5-5.1) mmol/L Chloride 103 (98-107) mmol/L Carbon Dioxide 25.3 (21.0-32.0) mmol/L Anion Gap 11.2 BUN 15.0 (7.0-18.0) mg/dL Creatinine 0.82 (0.55-1.02) mg/dL Est GFR ( Amer) >60 (>=60) Est GFR (Non-Af Amer) >60 (>=60) BUN/Creatinine Ratio 18.3 Glucose 95 (74-106) mg/dL Lactate 0.8 (0.4-2.0) mmol/L Calcium 7.9 L (8.5-10.1) mg/dL Total Bilirubin 1.4 H (0.2-1.0) mg/dL AST 64 H (15-37) U/L ALT 261 H (14-59) U/L Alkaline Phosphatase 112 (46-116) U/L Total Protein 6.2 L (6.4-8.2) g/dL Albumin 3.3 L (3.4-5.0) g/dL Globulin 2.9 g/dL Albumin/Globulin Ratio 1.1 Lipase 1286.0 H* (16.0-77.0) U/L Serum HCG, Qual (NEGATIVE) Urine Color (YELLOW) Urine Clarity (CLEAR) Urine pH (5.0-9.0) Ur Specific [place] (1.005-1.025) Urine Protein (NEG/TRACE) mg/dL Urine Glucose (UA) (NEGATIVE) mg/dL Urine Ketones (NEGATIVE) mg/dL Urine Occult Blood (NEGATIVE) Urine Nitrite (NEGATIVE) Urine Bilirubin (NEGATIVE) Urine Urobilinogen (0.2-1.0) EU/dL Ur Leukocyte Esterase (NEGATIVE) Imaging Data US - abdomen: Attestation: I have reviewed the pertinent imaging results. Radiologist's impression: Procedure: US right upper quadrant EXAM: US right upper quadrant; [id number] HISTORY: epigastric pain; last ate last night per patient TECHNIQUE: Real-time sonography of the right upper quadrant was performed. Color and spectral Doppler were used to assess select abdominal vasculature. COMPARISON: CT abdomen/pelvis 02/28/2023. FINDINGS: PANCREAS: Thickened appearance of the pancreatic parenchyma. GALLBLADDER: Layering echogenic sludge versus tiny gallstones. No evidence of acute cholecystitis. BILIARY DUCTS: Extrahepatic bile duct at the ulysses hepatis measures 11 mm. No significant intrahepatic biliary ductal dilatation. RIGHT KIDNEY: Kidney measures 9.4 x 5.7 x 5.3 cm. The kidney is within normal limits for size and echogenicity. No hydronephrosis, solid lesion, or stones demonstrated. Echogenic medullary pyramids compatible with medullary nephrocalcinosis. LIVER: Within normal limits for size and echogenicity. No focal lesion demonstrated. VASCULATURE: -Antegrade flow in the main portal vein. IMPRESSION: 1. Dilated CBD measuring up to 11 mm (normal up to 5 mm). Differential includes ampullary dysfunction versus distal stenosis or obstruction. Correlate with laboratory analysis and consider MRCP for further evaluation. 2. Layering echogenic sludge versus tiny gallstones. No evidence of acute cholecystitis. 3. Medullary nephrocalcinosis. 4. Thickened appearance of the pancreas which could be the baseline appearance versus the sequela of pancreatitis. Electronically authenticated by: RAKESH MCKEON Date: 03/20/2023 17:02 Discharge Plan Discharge Chief Complaint: Abdominal Pain Clinical Impression: Acute pancreatitis, Abdominal pain, Transaminitis, Nausea & vomiting Patient Disposition: [facility] Time of Disposition Decision: 18:32 Discharge location: [facility] Condition: Good Mode of Transportation: EMS Discharge Date/Time: 03/21/23 21:48
[2023-03-20 15:50] LABS: Basophils Percent Auto 0.2 % (0.2-2.0); Eosinophils Absolute Auto 0.1 10^3/uL (0.0-0.7); Eosinophils Percent Auto 0.4 % (0.9-7.0); Hemoglobin 15.8 g/dL (12.0-16.0); Immature Granulocytes Abs Auto 0.03 10^3/uL (0.00-0.03); Immature Granulocytes Pct Auto 0.2 % (0.0-0.5); Lymphocytes Absolute Auto 1.2 10^3/uL (1.2-3.8); Lymphocytes Percent Auto 9.6 % (20.5-60.0); Mean Corpuscular HGB Conc 33.6 g/dL (29.9-35.2); Mean Corpuscular Hemoglobin 32.4 pg (26.7-34.0); Mean Corpuscular Volume 96.5 fL (81.0-99.0); Monocytes Absolute Auto 0.3 10^3/uL (0.3-0.8); Monocytes Percent Auto 2.8 % (1.7-12.0); Neutrophils Absolute Auto 10.7 10^3/uL (1.4-6.5); Neutrophils Percent Auto 86.8 % (43.0-75.0); Platelet Count 255 10^3/uL (150-450); Red Blood Count 4.87 10^6/uL (4.20-5.40); Red Cell Distribution Width 12.6 % (11.0-15.0); White Blood Count 12.3 10^3/uL (4.0-11.0)
[2023-03-20] MEDS: 0.9 % SODIUM CHLORIDE 1,000 ML 1000 ML IV ×2 (15:52→18:01)
[2023-03-20] MEDS: MORPHINE SULFATE 4 MG/ML VIAL IV (15:53)
[2023-03-20] MEDS: FAMOTIDINE/PF 20 MG/2 ML VIAL IV (15:53)
[2023-03-20] MEDS: METOCLOPRAMIDE HCL 10 MG/2 ML VIAL INJ (15:53)
[2023-03-20 16:09] LABS: HCG Qualitative NEGATIVE (NEGATIVE)
[2023-03-20 16:10] LABS: Alanine Aminotransferase 475 U/L (14-59); Albumin Level 4.3 g/dL (3.4-5.0); Alkaline Phosphatase 158 U/L (46-116); Anion Gap 12.6; Aspartate Amino Transferase 276 U/L (15-37); Bilirubin Total 1.3 mg/dL (0.2-1.0); Calcium 8.9 mg/dL (8.5-10.1); Carbon Dioxide 28.1 mmol/L (21.0-32.0); Chloride 101 mmol/L (98-107); Estimated GFR (African America >60 (>=60); Estimated GFR (Non-African Ame >60 (>=60); Globulin 4.2 g/dL; Glucose 119 mg/dL (74-106); Potassium 3.7 mmol/L (3.5-5.1); Sodium 138 mmol/L (136-145); Total Protein 8.5 g/dL (6.4-8.2)
[2023-03-20 16:12] LABS: Lactate/Lactic Acid 2.3 mmol/L (0.4-2.0)
[2023-03-20] MEDS: HYDROMORPHONE HCL 1 MG/ML CARTRIDGE IV ×2 (17:12→18:02)
[2023-03-20] MEDS: ONDANSETRON PF 4 MG/2 ML VIAL IV (17:12)
[2023-03-20 17:43] LABS: Bilirubin Urine NEGATIVE (NEGATIVE); Blood Urine NEGATIVE (NEGATIVE); Clarity Urine CLEAR (CLEAR); Color Urine LT. YELLOW (YELLOW); Glucose Urine UA NEGATIVE (NEGATIVE); Ketones Urine 40 mg/dL (NEGATIVE); Leukocyte Esterase Urine NEGATIVE (NEGATIVE); Nitrite Urine NEGATIVE (NEGATIVE); Protein Urine NEGATIVE (NEG/TRACE); Urobilinogen Urine 0.2 EU/dL (0.2-1.0); pH Urine 7.5 (5.0-9.0)
[2023-03-20 17:44] LABS: Urine Microscopic Indicated NO
[2023-03-20 18:15] VITALS: BP 123/84; PULSE 90; RESP 16; O2SAT 99
[2023-03-20 18:27] LABS: Lactate/Lactic Acid 1.3 mmol/L (0.4-2.0)
[2023-03-20] MEDS: PIPERACILLIN SODIUM/TAZOBACTAM 4.5 GM in 0.9 % SODIUM CHLORIDE 50 ML IV (18:27)
[2023-03-20] MEDS: PANTOPRAZOLE SODIUM 40 MG VIAL IV (19:04)
[2023-03-20 19:45] VITALS: PULSE 81; RESP 14; O2SAT 98
[2023-03-20] MEDS: PROMETHAZINE HCL 25 MG/ML VIAL 12.5 MG IV (21:34)
[2023-03-20 21:40] VITALS: BP 112/78; PULSE 93; RESP 12; TEMP 36.8; O2SAT 100
[2023-03-20] MEDS: HYDROMORPHONE HCL 1 MG/ML CARTRIDGE IVP (22:48)
[2023-03-21] MEDS: PIPERACILLIN SODIUM/TAZOBACTAM 3.375 GM in 0.9 % SODIUM CHLORIDE 50 ML IV ×3 (02:34→18:53)
[2023-03-21] MEDS: 0.9 % SODIUM CHLORIDE 1,000 ML 150 ML IV (04:19)
[2023-03-21] MEDS: HYDROMORPHONE HCL 1 MG/ML CARTRIDGE IV ×5 (04:19→21:32)
[2023-03-21 04:31] VITALS: BP 132/94; PULSE 88; RESP 16; O2SAT 98
--- NOTE | 2023-03-21 05:42 | ED_ITS ---
HPI - General Adult General Chief complaint: Abdominal Pain Stated complaint: ABDOMINAL PAIN Time Seen by Provider: 03/20/23 14:28 Source: patient Mode of arrival: walk-in History of Present Illness HPI narrative: This 32-year-old female was awaiting transfer at shift change. She was seen and evaluated for abdominal pain with nausea and vomiting. She was found to have panelevation in her liver function tests and lipase greater than 2800. She is receiving IV fluids, analgesics and antibiotics. She is accepted for transfer at [facility]. She has been awaiting a bed since yesterday. We called to get an update around 2 AM and was told that she does not have a bed assignment yet. She requires a higher level of care due to her gallbladder pancreatitis and requirement for an ERCP. During the night she has remained hemodynamically stable and has had recurrent episodes of nausea and vomiting. She has been medicated with IV fluids and Dilaudid. I will repeat a.m. labs for further evaluation of her current condition. Related Data Home Medications Medication Instructions Recorded Confirmed albuterol sulfate 90 mcg/actuation 2 inh inhalation Q4H PRN shortness 02/06/23 02/06/23 aerosol inhaler of breath or wheezing alprazolam 0.25 mg tablet 0.25 mg PO BID 02/06/23 02/06/23 bupropion HCl 150 mg tablet,12 hr 150 mg PO BID 02/06/23 02/06/23 sustained-release cariprazine 4.5 mg capsule 4.5 mg PO QPM 02/06/23 02/06/23 (Vraylar) epinephrine 0.3 mg/0.3 mL 0.3 ml subcut Q4H PRN anaphylaxis 02/06/23 02/06/23 injection, auto-injector lisdexamfetamine 50 mg capsule 50 mg PO QDAY 02/06/23 02/06/23 (Vyvanse) hydrocodone 5 mg-acetaminophen 325 1 tab PO Q6H PRN pain 02/28/23 02/28/23 mg tablet ondansetron 4 mg disintegrating 4 mg PO Q8H PRN nausea and vomiting 02/28/23 02/28/23 tablet Previous Rx's Medication Instructions Recorded hydrocodone 5 mg-acetaminophen 325 1 tab PO Q4H PRN pain 4 days #16 10/20/23 mg tablet tabs ibuprofen 800 mg tablet 800 mg PO Q8H PRN pain 14 days #40 02/10/23 tabs Allergies Allergy/AdvReac Type Severity Reaction Status Date / Time cat dander Allergy Verified 02/28/23 08:12 Iodinated Contrast Media Allergy Hives Verified 02/28/23 08:12 [facility] Medical History (Updated 03/20/23 @ 18:33 by VINH Monaco) Abnormal involuntary movement ?R25.9 - Unspecified abnormal involuntary movements (ICD-10) Anemia ?D64.9 - Anemia, unspecified (ICD-10) Anxiety ?F41.9 - Anxiety disorder, unspecified (ICD-10) Asthma ?J45.909 - Unspecified asthma, uncomplicated (ICD-10) Attention deficit hyperactivity disorder ?F90.9 - Attention-deficit hyperactivity disorder, unspecified type (ICD-10) Bipolar 1 disorder ?F31.9 - Bipolar disorder, unspecified (ICD-10) Constipation ?K59.00 - Constipation, unspecified (ICD-10) COVID-19 ?U07.1 - COVID-19 (ICD-10) Depression ?F32.A - Depression, unspecified (ICD-10) Diverticulitis ?K57.92 - Diverticulitis of intestine, part unspecified, without perforation or abscess without bleeding (ICD-10) Dizziness ?R42 - Dizziness and giddiness (ICD-10) Dyspareunia Dysphagia ?R13.10 - Dysphagia, unspecified (ICD-10) Dysuria ?R30.0 - Dysuria (ICD-10) Elevated liver enzymes ?R74.8 - Abnormal levels of other serum enzymes (ICD-10) Endometriosis ?N80.9 - Endometriosis, unspecified (ICD-10) Enlarged thyroid ?E04.9 - Nontoxic goiter, unspecified (ICD-10) Gastroparesis ?K31.84 - Gastroparesis (ICD-10) GERD (gastroesophageal reflux disease) ?K21.9 - Gastro-esophageal reflux disease without esophagitis (ICD-10) Gestational hypertension ?O13.9 - Gestational [-induced] hypertension without significant proteinuria, unspecified trimester (ICD-10) Headache ?R51.9 - Headache, unspecified (ICD-10) Heartburn ?R12 - Heartburn (ICD-10) HELLP (hemolytic anemia/elev liver enzymes/low platelets in ) ?O14.20 - HELLP syndrome (HELLP), unspecified trimester (ICD-10) History of blood transfusion ?Z92.89 - Personal history of other medical treatment (ICD-10) Hypercholesterolemia ?E78.00 - Pure hypercholesterolemia, unspecified (ICD-10) Hyperglycemia ?R73.9 - Hyperglycemia, unspecified (ICD-10) Hypersexuality ?F52.8 - Other sexual dysfunction not due to a substance or known physiological condition (ICD-10) IBS (irritable bowel syndrome) ?K58.9 - Irritable bowel syndrome without diarrhea (ICD-10) Insomnia ?G47.00 - Insomnia, unspecified (ICD-10) Kidney stones ?N20.0 - Calculus of kidney (ICD-10) Migraine ?G43.909 - Migraine, unspecified, not intractable, without status migrainosus (ICD-10) Mood swings ?R45.86 - Emotional lability (ICD-10) ENGLISH (nonalcoholic steatohepatitis) ?K75.81 - Nonalcoholic steatohepatitis (ENGLISH) (ICD-10) Osteoarthritis, knee ?M17.9 - Osteoarthritis of knee, unspecified (ICD-10) Ovarian cyst ?N83.209 - Unspecified ovarian cyst, unspecified side (ICD-10) Pelvic pain ?R10.2 - Pelvic and perineal pain (ICD-10) Poor concentration ?R41.840 - Attention and concentration deficit (ICD-10) 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 - depression (ICD-10) PTSD (post-traumatic stress disorder) ?F43.10 - Post-traumatic stress disorder, unspecified (ICD-10) Sciatica ?M54.30 - Sciatica, unspecified side (ICD-10) Sinusitis ?J32.9 - Chronic sinusitis, unspecified (ICD-10) Skin pain ?R20.8 - Other disturbances of skin sensation (ICD-10) Syncope ?R55 - Syncope and collapse (ICD-10) Tachycardia ?R00.0 - Tachycardia, unspecified (ICD-10) Urinary frequency ?R35.0 - Frequency of micturition (ICD-10) Urinary tract infection ?N39.0 - Urinary tract infection, site not specified (ICD-10) Vitamin D deficiency ?E55.9 - Vitamin D deficiency, unspecified (ICD-10) Surgical History (Updated 10/16/23 @ 11:25 by Lindsey Quintero NP) History of section ?Z98.891 - History of uterine scar from previous surgery (ICD-10) History of colonoscopy ?Z98.890 - Other specified postprocedural states (ICD-10) History of esophagogastroduodenoscopy (EGD) ?Z98.890 - Other specified postprocedural states (ICD-10) History of hysterectomy ?Z90.710 - Acquired absence of both cervix and uterus (ICD-10) Family History (Updated 02/06/23 @ 11:25 by Lindsey Quintero NP) Other Family history of diabetes mellitus Family history of hypertension Family history of ovarian cancer Social History Within the past year, how often did you have a drink containing alcohol: 2-4 times a month Smoking status: Former smoker Non-prescribed substance use: denies use 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 Highest level of school completed/degree received: high school graduate Exam Constitutional Vital Signs, click to edit/add: Last Vital Signs Temp 98.3 F 03/20/23 21:40 Pulse 88 03/21/23 04:31 Resp 16 03/21/23 04:31 BP 132/94 H 03/21/23 04:31 Pulse Ox 98 03/21/23 04:31 O2 Del Method Room Air 03/21/23 04:31 Course Vital Signs Vital signs: Vital Signs Temperature 97.7 F 03/20/23 14:23 Pulse Rate 79 03/20/23 14:23 Respiratory Rate 18 03/20/23 14:23 Blood Pressure 135/99 H 03/20/23 14:23 Pulse Oximetry 96 03/20/23 14:23 Temperature 98.3 F 03/20/23 21:40 Pulse Rate 88 03/21/23 04:31 Respiratory Rate 16 03/21/23 04:31 Blood Pressure 132/94 H 03/21/23 04:31 Pulse Oximetry 98 03/21/23 04:31 Oxygen Delivery Method Room Air 03/21/23 04:31 Medical Decision Making Medical Records Medical records narrative: [facility] [address] [place], [place] [address] Patient Name: ORION HARPER MRN: [id number] date: 1990 Sex: F Assigned Patient Location: ER Current Patient Location: ER Accession/Order Number: [id number] Exam Date: 03/20/2023 16:00 Report Date: 03/20/2023 17:02 At the request of: BEBETO GIFFORD Procedure: US right upper quadrant EXAM: US right upper quadrant; [id number] HISTORY: epigastric pain; last ate last night per patient TECHNIQUE: Real-time sonography of the right upper quadrant was performed. Color and spectral Doppler were used to assess select abdominal vasculature. COMPARISON: CT abdomen/pelvis 02/28/2023. FINDINGS: PANCREAS: Thickened appearance of the pancreatic parenchyma. GALLBLADDER: Layering echogenic sludge versus tiny gallstones. No evidence of acute cholecystitis. BILIARY DUCTS: Extrahepatic bile duct at the ulysses hepatis measures 11 mm. No significant intrahepatic biliary ductal dilatation. RIGHT KIDNEY: Kidney measures 9.4 x 5.7 x 5.3 cm. The kidney is within normal limits for size and echogenicity. No hydronephrosis, solid lesion, or stones demonstrated. Echogenic medullary pyramids compatible with medullary nephrocalcinosis. LIVER: Within normal limits for size and echogenicity. No focal lesion demonstrated. VASCULATURE: -Antegrade flow in the main portal vein. IMPRESSION: 1. Dilated CBD measuring up to 11 mm (normal up to 5 mm). Differential includes ampullary dysfunction versus distal stenosis or obstruction. Correlate with laboratory analysis and consider MRCP for further evaluation. 2. Layering echogenic sludge versus tiny gallstones. No evidence of acute cholecystitis. 3. Medullary nephrocalcinosis. 4. Thickened appearance of the pancreas which could be the baseline appearance versus the sequela of pancreatitis. Electronically authenticated by: RAKESH MCKEON Date: 03/20/2023 17:02 Lab Data Labs: Lab Results 03/20/23 03/20/23 03/20/23 Range/Units 15:44 17:38 17:56 WBC 12.3 H (4.0-11.0) 10^3/uL RBC 4.87 (4.20-5.40) 10^6/uL Hgb 15.8 (12.0-16.0) g/dL Hct 47.0 (36.0-48.0) % MCV 96.5 (81.0-99.0) fL MCH 32.4 (26.7-34.0) pg MCHC 33.6 (29.9-35.2) g/dL RDW 12.6 (11.0-15.0) % Plt Count 255 (150-450) 10^3/uL MPV 11.0 (9.5-13.5) fL Neut % (Auto) 86.8 H (43.0-75.0) % Lymph % (Auto) 9.6 L (20.5-60.0) % [place] % (Auto) 2.8 (1.7-12.0) % Eos % (Auto) 0.4 L (0.9-7.0) % Baso % (Auto) 0.2 (0.2-2.0) % Neut # (Auto) 10.7 H (1.4-6.5) 10^3/uL Lymph # (Auto) 1.2 (1.2-3.8) 10^3/uL [place] # (Auto) 0.3 (0.3-0.8) 10^3/uL Eos # (Auto) 0.1 (0.0-0.7) 10^3/uL Baso # (Auto) 0.0 (0.0-0.1) 10^3/uL Abs Immat Gran (auto) 0.03 (0.00-0.03) 10^3/uL Imm/Tot Granulo (auto) 0.2 (0.0-0.5) % Sodium 138 (136-145) mmol/L Potassium 3.7 (3.5-5.1) mmol/L Chloride 101 (98-107) mmol/L Carbon Dioxide 28.1 (21.0-32.0) mmol/L Anion Gap 12.6 BUN 13.0 (7.0-18.0) mg/dL Creatinine 0.81 (0.55-1.02) mg/dL Est GFR ( Amer) >60 (>=60) Est GFR (Non-Af Amer) >60 (>=60) BUN/Creatinine Ratio 16.0 Glucose 119 H (74-106) mg/dL Lactate 2.3 H* 1.3 (0.4-2.0) mmol/L Calcium 8.9 (8.5-10.1) mg/dL Total Bilirubin 1.3 H (0.2-1.0) mg/dL AST 276 H (15-37) U/L ALT 475 H (14-59) U/L Alkaline Phosphatase 158 H (46-116) U/L Total Protein 8.5 H (6.4-8.2) g/dL Albumin 4.3 (3.4-5.0) g/dL Globulin 4.2 g/dL Albumin/Globulin Ratio 1.0 Lipase 2869.0 H* (16.0-77.0) U/L Serum HCG, Qual Negative (NEGATIVE) Urine Color Lt. yellow (YELLOW) Urine Clarity Clear (CLEAR) Urine pH 7.5 (5.0-9.0) Ur Specific [place] 1.020 (1.005-1.025) Urine Protein Negative (NEG/TRACE) mg/dL Urine Glucose (UA) Negative (NEGATIVE) mg/dL Urine Ketones 40 A (NEGATIVE) mg/dL Urine Occult Blood Negative (NEGATIVE) Urine Nitrite Negative (NEGATIVE) Urine Bilirubin Negative (NEGATIVE) Urine Urobilinogen 0.2 (0.2-1.0) EU/dL Ur Leukocyte Esterase Negative (NEGATIVE) Discharge Plan Discharge Chief Complaint: Abdominal Pain Clinical Impression: Acute pancreatitis, Abdominal pain, Transaminitis, Nausea & vomiting Patient Disposition: [facility] Time of Disposition Decision: 18:32 Discharge location: [facility] Condition: Good Mode of Transportation: EMS
[2023-03-21 06:05] LABS: Basophils Percent Auto 0.2 % (0.2-2.0); Eosinophils Absolute Auto 0.1 10^3/uL (0.0-0.7); Eosinophils Percent Auto 0.9 % (0.9-7.0); Hematocrit 38.7 % (36.0-48.0); Hemoglobin 12.9 g/dL (12.0-16.0); Immature Granulocytes Abs Auto 0.03 10^3/uL (0.00-0.03); Immature Granulocytes Pct Auto 0.3 % (0.0-0.5); Lymphocytes Absolute Auto 2.2 10^3/uL (1.2-3.8); Lymphocytes Percent Auto 19.7 % (20.5-60.0); Mean Corpuscular HGB Conc 33.3 g/dL (29.9-35.2); Mean Corpuscular Hemoglobin 32.3 pg (26.7-34.0); Mean Platelet Volume 10.5 fL (9.5-13.5); Monocytes Absolute Auto 0.6 10^3/uL (0.3-0.8); Monocytes Percent Auto 5.2 % (1.7-12.0); Neutrophils Percent Auto 73.7 % (43.0-75.0); Platelet Count 209 10^3/uL (150-450); Red Blood Count 3.99 10^6/uL (4.20-5.40); Red Cell Distribution Width 12.4 % (11.0-15.0); White Blood Count 10.9 10^3/uL (4.0-11.0)
[2023-03-21 06:19] LABS: Alanine Aminotransferase 261 U/L (14-59); Albumin Globulin Ratio 1.1; Albumin Level 3.3 g/dL (3.4-5.0); Alkaline Phosphatase 112 U/L (46-116); Anion Gap 11.2; Aspartate Amino Transferase 64 U/L (15-37); BUN Creatinine Ratio 18.3; Bilirubin Total 1.4 mg/dL (0.2-1.0); Calcium 7.9 mg/dL (8.5-10.1); Carbon Dioxide 25.3 mmol/L (21.0-32.0); Chloride 103 mmol/L (98-107); Estimated GFR (African America >60 (>=60); Estimated GFR (Non-African Ame >60 (>=60); Globulin 2.9 g/dL; Glucose 95 mg/dL (74-106); Potassium 3.5 mmol/L (3.5-5.1); Sodium 136 mmol/L (136-145); Total Protein 6.2 g/dL (6.4-8.2)
[2023-03-21 06:24] LABS: Lactate/Lactic Acid 0.8 mmol/L (0.4-2.0)
[2023-03-21] MEDS: ONDANSETRON PF 4 MG/2 ML VIAL IV ×3 (08:46→21:32)
[2023-03-21] MEDS: 0.9 % SODIUM CHLORIDE 1,000 ML 125 ML IV (17:27)
[2023-03-21 18:54] VITALS: BP 104/75; PULSE 93; RESP 18; TEMP 37.3; O2SAT 97
== END 2023-03-21 21:48 | disposition short-term general hospital (02) ==
PROVIDERS: Emergency Medicine; Physician Assistant; Emergency Provider Emergency Medicine; PCP Family Medicine
DX: K85.90 Acute pancreatitis without necrosis or infection, unspecified (principal); R10.9 Unspecified abdominal pain; R11.2 Nausea with vomiting, unspecified; R74.01 Elevation of levels of liver transaminase levels; Z79.899 Other long term (current) drug therapy; F41.9 Anxiety disorder, unspecified; J45.909 Unspecified asthma, uncomplicated; F90.9 Attention-deficit hyperactivity disorder, unspecified type; F31.9 Bipolar disorder, unspecified; Z86.16 Personal history of COVID-19; K31.84 Gastroparesis; K21.9 Gastro-esophageal reflux disease without esophagitis; E78.00 Pure hypercholesterolemia, unspecified; K58.9 Irritable bowel syndrome, unspecified; G47.00 Insomnia, unspecified; Z87.442 Personal history of urinary calculi; K75.81 Nonalcoholic steatohepatitis (NASH); F43.10 Post-traumatic stress disorder, unspecified; E55.9 Vitamin D deficiency, unspecified; Z87.440 Personal history of urinary (tract) infections; Z98.891 History of uterine scar from previous surgery; Z98.890 Other specified postprocedural states; Z90.710 Acquired absence of both cervix and uterus; Z87.891 Personal history of nicotine dependence
CPT/HCPCS: 36415; 76705; 80053; 81003; 83605; 83690; 84703; 85025; 96361; 96365; 96366; 96375; 96376; 99285; J1170

== ENCOUNTER 2023-04-11 09:59 | Outpatient (OUT) | payer OTHER, SELFPAY ==
[2023-04-11 11:03] LABS: Amylase 57 U/L (25-115)
== END 2023-04-11 10:00 | disposition home or self-care (01) ==
LOC: LAB 10:00
PROVIDERS: PCP Family Medicine
DX: K85.10 Biliary acute pancreatitis without necrosis or infection (principal)
CPT/HCPCS: 36415; 82150; 83690

== ENCOUNTER 2023-04-11 10:03 | Outpatient (OUT) | payer OTHER, SELFPAY ==
[2023-04-11 11:10] LABS: Alanine Aminotransferase 58 U/L (14-59); Albumin Globulin Ratio 0.9; Albumin Level 3.4 g/dL (3.4-5.0); Alkaline Phosphatase 135 U/L (46-116); Aspartate Amino Transferase 39 U/L (15-37); Bilirubin Direct 0.2 mg/dL (0.0-0.2); Bilirubin Total 0.2 mg/dL (0.2-1.0); Globulin 3.6 g/dL
== END 2023-04-11 10:04 | disposition home or self-care (01) ==
LOC: LAB 10:04
PROVIDERS: PCP Family Medicine
DX: K85.10 Biliary acute pancreatitis without necrosis or infection (principal); R74.01 Elevation of levels of liver transaminase levels
CPT/HCPCS: 36415; 80076; 82150; 83690

== ENCOUNTER 2023-11-16 15:59 | Outpatient (OUT) | payer OTHER, SELFPAY ==
--- NOTE | 2023-11-16 16:03 | XR_ITS ---
The [address] [address] Patient Name: ORION HARPER MRN: [id number] date: 1990 Sex: F Assigned Patient Location: [facility] Current Patient Location: Accession/Order Number: [id number] Exam Date: 11/16/2023 16:15 Report Date: 11/20/2023 07:57 At the request of: MADHURI MISHRA Procedure: XR abdomen 1V EXAMINATION: XR abdomen 1V HISTORY: Kidney Stone N20.0, Recurrent UTI N39.0 COMPARISON: XR KUB 06/29/2022 FINDINGS: KIDNEY/URETER - RIGHT: No visible renal or ureteral calcifications. KIDNEY/URETER - LEFT: No visible renal or ureteral calcifications. PELVIS: No visible ureteral calcifications. BOWEL: No abnormal dilation or deviation. BONES: No acute abnormality. OTHER: Negative. No abnormal gaseous collections. XR/XR abdomen 1V IMPRESSION: 1. No visible urinary tract calculi. Electronically authenticated by: LAURIE CRUZ Date: 11/20/2023 07:57
--- OUTSIDE RECORDS SUMMARY | 2023-11-16 16:05 | XMS_ITS | CCD ---
Author Organization [facility] Care Team Providers Care Scorekeeper Name Role Phone SHIVANI MONTEIRO Referring Unavailable GIOVANI HAGEN Primary Care Unavailable MD Erwin Hylton Attending Provider MD Giovani Hagen Primary Care Provider Giovani Hagen Primary Care Provider Erwin Hylton Unavailable GIOVANI HAGEN Primary Care Physician [phone] LASHANDAASIK ., DR SIMON Consulting Unavailabl e HIEU, DR MATUTE Primary Care Unavailable KARASIK ., DR SIMON Attending Unavailabl e KARASIK ., DR SIMON Admitting Unavailabl e KARASIK ., DR SIMON Consulting Unavailabl e MISC, DR MCKEON Primary Care Unavailable KARASIK ., DR SIMON Attending Unavailabl e KARASIK ., DR SIMON Admitting Unavailabl e ZIEBER, DR LAURIE Kendrick Consulting Unavailable HIEU, DR MATUTE Consulting Unavailable MISC, DR MCKEON Primary Care Unavailable HIEU, DR MATUTE Attending Unavailable HIEU, DR MATUTE Admitting Unavailable ZIEBER, DR LAURIE Kendrick Consulting Unavailable HIEU, DR MATUTE Consulting Unavailable MISC, DR MCKEON Primary Care Unavailable HIEU, DR MATUTE Attending Unavailable HIEU, DR MATUTE Admitting Unavailable Jackson Adkins Consulting Unavailable HIEU, DR MATUTE Consulting Unavailable MISC, DR MCKEON Primary Care Unavailable HIEU, DR MATUTE Attending Unavailable HIEU, DR MATUTE Admitting Unavailable Jackson Adkins Consulting Unavailable MISHRA ., DR DHALIWAL Consulting Unavailable HIEU, DR MATUTE Primary Care Unavailable MISHRA ., DR DHALIWAL Attending Unavailable MISHRA ., DR DHALIWAL Admitting Unavailable MISHRA ., DR DHALIWAL Consulting Unavailable HIEU, DR MATUTE Primary Care Unavailable MISHRA ., DR DHALIWAL Attending Unavailable MISHRA ., DR DHALIWAL Admitting Unavailable MISHRA ., DR DHALIWAL Consulting Unavailable HIEU, DR MATUTE Primary Care Unavailable MISHRA ., DR DHALIWAL Attending Unavailable MISHRA ., DR DHALIWAL Admitting Unavailable Jackson Adkins Consulting Unavailable POPPY ., BERONICA Consulting Unavailable REINECK, DR RONALD Mcgovern Attending Unavailabl e REINECK, DR RONALD Mcgovern Admitting Unavailabl e MISC, DR MCKEON Primary Care Unavailable RED, MARIA DOLORES Consulting Unavailable ASAAD, IMAD Consulting Unavailable HIEU, DR MATUTE Primary Care Unavailable MISC, DR MCKEON Attending Unavailable MISC, DR MCKEON Admitting Unavailable HIEU, DR MATUTE Consulting Unavailable HIEU, DR MATUTE Primary Care Unavailable HIEU, DR MATUTE Attending Unavailable HIEU, DR MATUTE Admitting Unavailable KARASIK ., DR SIMON Consulting Unavailabl e MISC, DR MCKEON Primary Care Unavailable KARASIK ., DR SIMON Attending Unavailabl e KARASIK ., DR SIMON Admitting Unavailabl e KARASIK ., DR SIMON Consulting Unavailabl e HIEU, DR MATUTE Primary Care Unavailable KARASIK ., DR SIMON Attending Unavailabl e KARASIK ., DR SIMON Admitting Unavailabl e ZIEBER, DR LAURIE Kendrick Consulting Unavailable MD Erwin Hylton Attending Provider [phone] MD Giovani Hagen Primary Care Provider DAKHIL, NOMA [facility] Un[facility] DAKHIL, NOMA Ref[facility] Un[facility] Unavailable DAKHIL, NOMA [facility] MARIA DOLORES COREY Ref[facility] Unavailable Asaad, Imad Admitting Unavailable Asaad, Imad Attending Unavailable [place], [facility] Primary Care Unavailable Asaad, Imad Admitting Unavailable Asaad, Imad [facility]ending Un[facility] Hieu Giovani FRIEDMAN [facility] Primary Care Provider [phone] BLOOD, MARY Culver Admitting Unavailable BLOOD, MARY Culver Attending Unavailable JACKSON MONTENEGRO Consulting Unavailable SONIYA PATEL Referring Unavailable HIEU, [facility] Primary Care Unavailable MAKENNA AMAYA Consulting Unavailable FARNAZ DEJESUS Attending Unavailab Madhuri Marinelli Attending Unavailable HIEUGIOVANI Attending Unavailable GIOVANI HAGEN Attending Unavailable AKUA DU Attending Unavailable CADE WILCOX Attending Unavailable GIOVANI HAGEN Attending Unavailable Giovani Hagen MD Primary Care Provider Allergies Allergy Classification Reported Allergen(s) Allergy Type Date of Onset Reaction(s) Facility Iodine (and Iodine containting drugs) (2 sources) Iodine Drug Allergy 9 Swelling, Itching [facility] Iohexol (2 sources) Iohexol Drug Allergy 9 Itching [facility] (20 sources) Iodine; Translations: [IODINE] Drug Allergy 9 Swelling, Itching [facility] (20 sources) Iohexol; Translations: [IOHEXOL] Drug Allergy 9 Itching [facility] (1 source) Cat Propensity to adverse reactions anaphylaxis [facility] Other (1 source) tree nut, unspecified Propensity to adverse reactions anaphylaxis [facility] Other (1 source) peanut allergenic extract Drug Allergy [facility] Repository (1 source) Cat/Feline Product Derivatives Drug allergy (disorder) 3 [facility] (1 source) No Known Medication Allergies; Translations: [No Known Medication Allergies] Propensity to adverse reactions (disorder) [facility] Repository Medications Current Medications Medication Drug Class(es) Dates Sig (Normalized) Sig (Original) acetaminophen 1000 mg oral tablet (2 sources) Start: 06-12-2018 take 1000 mg by mouth once daily as needed for pain Tylenol 1,000 mg, Oral, Daily, PRN as needed for pain, Refills(s) 0 Start Date: 06/12/18 Status: Ordered Albuterol (3 sources) beta2-Adrenergic Agonist Start: 12-17-2018 albuterol 2 puffs every 4 hours as needed for SOB/wheezing, Refills(s) 0 Start Date: 12/17/18 Status: Ordered take 2 puff(s) by in halation every four hours as needed Albuterol Sulfate HFA 108 (90 Base) MCG/ACT 2 puff as needed Inhalation every 4 hrs Active ALPRAZolam 0.25 mg oral tablet (20 sources) Benzodiazepine Start: 06-12-2018 take 1 tablet by mouth twice daily ALPRAZolam (XANAX) 0.25 mg tablet Take 0.25 mg by mouth twice daily. 0 02/18/2019 Active Comment on above: Take 0.25 mg by mout h twice daily. Baclofen (16 sources) gamma-Aminobutyric Acid-ergic Agonist Start: 06-29-2022 baclofen Oral, TID Start Date: 06/29/22 Status: Ordered Start: 05-25-2022 End: 11-02-2022 baclofen (LIORESAL) 10 mg ta blet bismuth subcitrate 140 mg / metroNIDAZOLE 125 mg / tetracycline hydrochloride 125 mg oral capsule (1 source) Nitroimidazole Antimicrobial, Tetracycline-class Antimicrobial Start: 07-04-2022 End: 07-14-2022 take 3 capsules by mouth at bedtime Bis Subcit Zyr-Kjnzo-Gxialuzr (PYLERA) 140-125-125 mg per capsule Take 3 capsules by mouth before meals and at bedtime for 10 days. 120 capsule 0 07/04/2022 07/14/2022 Active Comment on above: Take 3 capsules by m outh before meals and at bedtime for 10 days. buPROPion (20 sources) Aminoketone Start: 06-29-2022 Wellbutrin SR Oral, BID Start Date: 06/29/22 Status: Ordered Start: 05-25-2022 buPROPion SR ( ZYBAN SR; WELLBUTRIN SR) 150 mg 12 hr tablet take 1 tablet by vanna th every twelve hours Wellbutrin XL 150 MG 1 tablet in the morning Orally TWICE A DAY Active cariprazine 1.5 mg oral capsule (20 sources) Atypical Antipsychotic Start: 05-01-2019 take 1 capsule by mouth once daily Vraylar 1.5 mg oral capsule 1.5 mg = 1 cap(s), Oral, Daily Start Date: 05/01/19 Status: Ordered take 1 capsule by mouth once jai ly cariprazine (VRAYLAR) 3 mg cap Take by mouth once daily. 0 Active cariprazine (VRA YLAR) 4.5 mg capsule 1 capsule. 0 Active Vraylar Active Comment on above: Take by mouth once d aily. 1 capsule. cephalexin 500 mg oral capsule (2 sources) Cephalosporin Antibacterial Start: 023 take 1 tablet by mouth twice daily, then take 1 tablet by mouth once daily Keflex 500 mg Cap See Instructions, Take 1 tab by mouth twice a day for 10 days. Then take 1 tab once a day for 30 days., # 50 cap(s), Refills(s) 0, Pharmacy: [facility]/pharmacy #[id number], 158, cm, 06/29/22 8:19:00 EST, Height/Length Dosing, 84.8, kg, 06/29/22 8:19:00 EST, Weigh... Start Date: 06/29/22 Status: Ordered EPINEPHrine (1 source) alpha-Adrenergic Agonist, beta-Adrenergic Agonist, Catecholamine EpiPen prn Active ibuprofen 800 mg oral tablet (2 sources) Nonsteroidal Anti-inflammatory Drug Start: 019 take 800 mg by mouth once daily as needed for pain ibuprofen 800 mg, Oral, Daily, PRN as needed for pain, Refills(s) 0 Start Date: 06/12/18 Status: Ordered lisdexamfetamine dimesylate 10 mg oral capsule (16 sources) Central Nervous System Stimulant take 1 capsule by mouth once daily lisdexamfetamine (VYVANSE) 10 mg capsule Take 10 mg by mouth once daily. 0 Active take 1 capsule by mo [facility] every twenty-four hours Vyvanse 50 MG 1 capsule in the morning Orally Once a day Active Comment on above: Take 10 mg by mouth once daily. pantoprazole 40 mg delayed release oral tablet (20 sources) Proton Pump Inhibitor Start: take 1 tablet by mouth twice daily before mealtime pantoprazole DR (PROTONIX) 40 mg tablet Indications: Helicobacter pylori gastritis Take 1 tablet by mouth twice daily before meals for 14 days. 28 tablet 0 09/01/2022 Active Start: 07-04-2022 End: 07-14-2022 take 1 tablet by mouth twice daily before mealtime pantoprazole DR (PROTONIX) 40 mg tablet Take 1 tablet by mouth twice daily before meals for 10 days. 20 tablet 0 07/04/2022 Active Start: 06-30-2022 End: 11-02-2022 take 1 tablet by mouth once daily pantoprazole DR (PROTONIX) 40 mg tablet Take 1 tablet by mouth once daily. 30 tablet 3 06/30/2022 11/02/2022 Discontinued Comment on above: Take 1 tablet by vanna th once daily. Take 1 tablet by vanna th twice daily before meals for 10 days. Take 1 tablet by vanna th twice daily before meals for 14 days. prucalopride 2 mg oral tablet (11 sources) Start: 3 take 1 tablet by mouth once daily prucalopride 2 mg tablet (MOTEGRITY) Indications: Chronic idiopathic constipation Take 1 tablet (2 mg) by mouth once daily. 30 tablet 6 10/17/2022 Active Comment on above: Take 1 tablet (2 mg) by mouth once daily. sucralfate 1000 mg oral tablet (1 source) Aluminum Complex Start: 3 End: 3 take 1 tablet by mouth twice daily before mealtime sucralfate (CARAFATE) 1 gram tablet Take 1 tablet by mouth twice daily before meals. 60 tablet 0 06/30/2022 07/30/2022 Active Comment on above: Take 1 tablet by vanna twice daily before meals. tenapanor 50 mg oral tablet (7 sources) Start: 3 take 1 tablet by mouth twice daily tenapanor (IBSRELA) 50 mg tablet Indications: Irritable bowel syndrome with constipation Take 1 tablet (50 mg) by mouth twice daily. 60 tablet 5 11/02/2022 Active Comment on above: Take 1 tablet (50 mg ) by mouth twice daily. Tramadol (2 sources) Opioid Agonist Start: 3 tramadol Oral Start Date: 06/29/22 Status: Ordered Completed/Discontinued Medications Medication Drug Class(es) Dates Sig (Normalized) Sig (Original) amoxicillin 875 mg oral tablet (1 source) Penicillin-class Antibacterial Start: 05-03-2019 take 1 tablet by mouth every twelve hours Amoxicillin 875 MG 1 tablet Orally Twice a day for 7 days Apr, Not-Taking Doxepin (14 sources) Tricyclic Antidepressant Start: 12-07-2021 End: 11-02-2022 doxepin HCl (DOXEPIN ORAL) Start: 12-07-2021 doxepin HCl (D OXEPIN ORAL) estrogens, conjugated (mcfp) 0.625 mg/ml vaginal cream (15 sources) Estrogen Start: 05-26-2022 End: 11-02-2022 PREMARIN vaginal cream Premarin 0.625 M G/GM as directed Vaginal 3 TIMES A WEEK Active Ethinyl Estradiol / norgestimate (14 sources) Progestin, Estrogen Start: 03-26-2019 End: 11-02-2022 SPRINTEC 0.25-35 mg-mcg per tablet Start: 03-26-2019 SPRINTEC 0.25- 35 mg-mcg per tablet 30 actuat fluticasone furoate 0.1 mg/actuat / umeclidinium 0.0625 mg/actuat / vilanterol 0.025 mg/actuat dry powder inhaler (15 sources) Anticholinergic, Corticosteroid, beta2-Adrenergic Agonist Start: 05-24-2022 End: 11-02-2022 TRELEGY ELLIPTA 100-62.5-25 mcg inhalation powder take 1 puff(s) by inhalation onc e daily Trelegy Ellipta 100-62.5-25 MCG/ACT 1 puff Inhalation Once a day Active lidocaine hydrochloride 20 mg/ml mucous membrane topical solution (1 source) Antiarrhythmic, Amide Local Anesthetic Start: 05-03-2019 take 15 mL by mouth every three hours as needed for pain Lidocaine Viscous 2 % gargle 15 ml as needed for pain Mouth/Throat every 3 hrs Apr, Not-Taking 50/50 release 24 hr methylphenidate hydrochloride 20 mg extended release oral capsule (14 sources) Central Nervous System Stimulant Start: 03-28-2022 End: 11-02-2022 take 1 capsule by mouth once daily in the morning methylphenidate LA (RITALIN LA) 20 mg 24 hr capsule TAKE 1 CAPSULE BY MOUTH EVERY DAY IN THE MORNING FOR 30 DAYS 0 03/28/2022 11/02/2022 Discontinued Comment on above: TAKE 1 CAPSULE BY [facility] EVERY DAY IN THE MORNING FOR 30 DAYS Naproxen (1 source) Nonsteroidal Anti-inflammatory Drug Naproxen Not-Taking ondansetron 8 mg disintegrating oral tablet (14 sources) Serotonin-3 Receptor Antagonist Start: 02-08-2019 End: 11-02-2022 take 1 tablet by mouth three times daily as needed ondansetron orally disintegrating (ZOFRAN ODT) 8 mg disintegrating tablet DISSOLVE 1 TABLET ON THE TONGUE 3 TIMES A DAY NEEDED 0 02/08/2019 11/02/2022 Discontinued Comment on above: DISSOLVE 1 TABLET ON THE TONGUE 3 TIMES A DAY NEEDED Problems Active Problems Problem Classification Problem Date Documented Da te Episodic/Chronic Abdominal pain (6 sources) Right sided abdominal pain; Translations: [Unspecified abdominal pain] Onset: 10-20-2021 Episodic Anxiety disorders (1 source) Anxiety disorder, unspecified; Translations: [ANXIETY DISORDER UNSPECIFIED] Onset: 10-22-2021 Chronic Calculus of urinary tract (7 sources) Kidney stone; Translations: [Calculus of kidney] Onset: 06-30-2022 06-29-2022 Episodic Genitourinary symptoms and ill-defined conditions (4 sources) Dysuria; Translations: [Increased frequency of urination] 05-01-2019 Episodic Hepatitis (2 sources) Nonalcoholic steatohepatitis; Translations: [Nonalcoholic steatohepatitis (ENGLISH)] Chronic Immunizations and screening for infectious disease (5 sources) Encounter for screening for human papillomavirus (HPV); Translations: [Encounter for screening for infections with a predominantly sexual mode of transmission] Onset: 10-19-2021 Episodic Mood disorders (1 source) Major depressive disorder, single episode, unspecified; Translations: [GISSELLE DEPRESS D/O SINGLE EPIS UNS] Onset: 10-22-2021 Chronic Nausea and vomiting (6 sources) Bilious vomiting; Translations: [Bilious vomiting] Onset: 09-12-2022 Episodic Other disorders of stomach and duodenum (13 sources) Gastroparesis syndrome; Translations: [Gastroparesis] Onset: 11-02-2022 Episodic Other disorders of stomach and duodenum (1 source) Gastroparesis; Translations: [Gastroparesis] Onset: 10-17-2022 Episodic Other female genital disorders (4 sources) Unspecified dyspareunia; Translations: [UNSPECIFIED DYSPAREUNIA] Onset: 10-27-2021 Chronic Other gastrointestinal disorders (1 source) Irritable bowel syndrome characterized by constipation; Translations: [Irritable bowel syndrome with constipation] 11-02-2022 Chronic Other gastrointestinal disorders (1 source) History of diverticulitis; Translations: [Personal history of other diseases of the digestive system] Episodic Other liver diseases (1 source) Steatosis of liver; Translations: [Fatty (change of) liver, not elsewhere classified] Chronic Other liver diseases (2 sources) Lesion of liver; Translations: [Liver disease, unspecified] Chronic Other liver diseases (1 source) Liver cyst; Translations: [Other specified diseases of liver] Chronic Other liver diseases (1 source) Other specified diseases of liver Chronic Other liver diseases (1 source) Liver disease, unspecified; Translations: [Liver lesion] Onset: 06-15-2022 Chronic Other liver diseases (1 source) Fatty (change of) liver, not elsewhere classified; Translations: [Fatty (change of) liver, not elsewhere classified] Onset: 05-13-2022 Chronic Other liver diseases (1 source) Elevated liver enzymes level; Translations: [Abnormal levels of other serum enzymes] Episodic Other liver diseases (6 sources) Abnormal levels of other serum enzymes; Translations: [ABNORMAL LEVELS OTHER SERUM ENZYMES] Onset: 05-03-2022 Episodic Other lower respiratory disease (2 sources) Dyspnea; Translations: [Shortness of breath] Episodic Other screening for suspected conditions (not mental disorders or infectious disease) (2 sources) Ultrasound scan abnormal; Translations: [Abnormal findings on diagnostic imaging of other specified body structures] Chronic Other screening for suspected conditions (not mental disorders or infectious disease) (10 sources) Encounter for screening for malignant neoplasm of cervix; Translations: [Other specified abnormal findings of blood chemistry] Onset: 04-06-2022 Episodic Pancreatic disorders (not diabetes) (2 sources) Biliary acute pancreatitis without necrosis or infection; Translations: [Acute pancreatitis without necrosis or infection, unspecified] Onset: 03-23-2023 Episodic Substance-related disorders (2 sources) Smoker 10-12-2018 Chronic Comment on above: Added secondary to d ocumentation in Social History. Unclassified (3 sources) LOW BACK PAIN, UNSPECIFIED; Translations: [LOW BACK PAIN, UNSPECIFIED] Onset: 09-10-2021 Urinary tract infections (8 sources) Recurrent urinary tract infection; Translations: [Urinary tract infectious disease] Onset: 06-29-2022 06-29-2022 Episodic Past or Other Problems Problem Classification Problem Date Documented Da te Episodic/Chronic E Codes: Fall (1 source) Unspecified fall, initial encounter; Translations: [UNSPECIFIED FALL INITIAL ENCOUNTER] Onset: 09-10-2021 Episodic Other lower respiratory disease (1 source) Shortness of breath; Translations: [SOB (shortness of breath)] Onset: 05-27-2022 Episodic Ovarian cyst (6 sources) Other ovarian cyst, unspecified side; Translations: [Unspecified ovarian cyst, right side] Onset: 11-01-2021 Episodic Residual codes; unclassified (1 source) Acquired absence of both cervix and uterus; Translations: [ACQUIRED ABSENCE BOTH CERVIX AND UTERUS] Onset: 12-23-2021 Episodic Unclassified (1 source) LOW BACK PAIN, UNSPECIFIED; Translations: [LOW BACK PAIN, UNSPECIFIED] Onset: 09-06-2021 Results Test Name Value Interpretation Reference Range Facility [facility] 11-02-2023 CNPN Telephone (CARDMN) BELGICA HARPER ([id number]) 1990 F Date Time Provider Department 11/02/23 SOLO MORA During your visit today, we recorded the following information about you: Criss Mccrary 11/02/2023 10:50 AM Signed Records are in Care Everywhere: EP Referral- 11/01/23 (Dr. Shilo Dillon/Cardiology) Criss Mccrary Allergies As of Date: 11/02/2023 Noted Allergy Reaction IV CONTRAST (IODINE) 04/11/2019 7 - Swelling 9 - Itching Comments: Omnipaque 300: Patient experienced itching on her neck and left side of her face. Also, pt complained of tongue feeling itchy and feels like something is stuck in her throat . Patient received diphenhydramine (Benadryl) OMNIPAQUE (IOHEXOL) 04/12/2019 9 - Itching Date Reviewed: 11/02/2022 Reviewed by: Samuel Freeman MD - Fully Assessed Reason for Visit: Patient Update [1234] Cmt: Referral AND Records are in Care Everywhere Prescriptions as of 11/02/2023 - tenapanor (IBSRELA) 50 mg tablet Take 1 tablet (50 mg) by mouth twice daily. - prucalopride 2 mg tablet (MOTEGRITY) Take 1 tablet (2 mg) by mouth once daily. - pantoprazole DR (PROTONIX) 40 mg tablet Take 1 tablet by mouth twice daily before meals for 14 days. - lisdexamfetamine (VYVANSE) 10 mg capsule Take 10 mg by mouth once daily. - buPROPion SR (ZYBAN SR; WELLBUTRIN SR) 150 mg 12 hr tablet - cariprazine (VRAYLAR) 4.5 mg capsule 1 capsule. - ALPRAZolam (XANAX) 0.25 mg tablet Take 0.25 mg by mouth twice daily. - cariprazine (VRAYLAR) 3 mg cap Take by mouth once daily. Facility-Administered Medications as of 11/02/2023 - lidocaine (PF) 10 mg/mL (1 %) 1-2 mg injection (XYLOCAINE) - NaCl 0.9% iv infusion Problem List As Of Date 11/02/2023 Noted Resolved Gastroparesis [K31.84] 11/02/2022 Encounter Status:Closed by CRISS MCCRARY on 11/02/23 Normal [facility] Extra Lavender Tubeon 2022 Extra Lavender Tube Normal [facility] Comment on above: Performed By: #### X LAV, LIVP, LIP #### [facility] [address] [place] [address] Optometry Doctor: Ronald Pearce MD Lipaseon 03-24-2023 Lipase [Catalytic activity/Vol] 260 U/L High 13-60 [facility] Comment on above: Performed By: #### X LAV, LIVP, LIP #### [facility] [address] [place] [address] Optometry Doctor: Ronald Pearce MD Liver Profileon 03-24-2023 Albumin [Mass/Vol] 3.5 g/dL Normal 3.5-5.2 [facility] Comment on above: Performed By: #### X LAV, LIVP, LIP ####[facility] [id number] [place] [address] Lab Director: Ronald Pearce MD Alkaline Phos 321 U/L High 35-104 [facility] Comment on above: Performed By: #### X LAV, LIVP, LIP ####[facility] [id number] [place] [phone] Director: Ronald Pearce MD ALT [Catalytic activity/Vol] 137 U/L High 5-33 [facility] Comment on above: Performed By: #### X LAV, LIVP, LIP ####[facility] [id number] [place] [phone] Director: Ronald Pearce MD AST [Catalytic activity/Vol] 60 U/L High <32 [facility] Comment on above: Performed By: #### X LAV, LIVP, LIP ####[facility] [id number] [place] [address].[place] [phone] Director: Ronald Pearce MD Bilirubin [Mass/Vol] 1.0 mg/dL Normal 0.3-1.2 [facility] Comment on above: Performed By: #### X LAV, LIVP, LIP ####[facility] [id number] [place] [address].[place] [phone] Director: Ronald Pearce MD Bilirubin, Indirect 0.4 mg/dL Normal 0.0-1.0 [facility] Comment on above: Performed By: #### X LAV, LIVP, LIP ####[facility] [id number] [place] [phone] Director: Ronald Pearce MD Bilirubin.indirect [Mass/Vol] 0.6 mg/dL High <0.3 [facility] Comment on above: Performed By: #### X LAV, LIVP, LIP ####[facility] [id number] [place] [phone] Director: Ronald Pearce MD Protein [Mass/Vol] 5.7 g/dL Low 6.4-8.3 [facility] Comment on above: Performed By: #### X LAV, LIVP, LIP ####[facility] [id number], [place] [id number] lab Director: Ronald Pearce MD Extra Lavender Tubeon 2022 Extra Lavender Tube Normal [facility] Comment on above: Performed By: #### L IVP, XLAV ####[facility] [id number], [place] [id number] lab Director: Ronald Pearce MD FL CHOLANGIOGRAM ORon 2022 FL CHOLANGIOGRAM OR EXAMINATION: SPOT FLUOROSCOPIC IMAGES 03/23/2023 9:08 am TECHNIQUE: Fluoroscopy was provided by the radiology department for procedure. Radiologist was not present during examination. FLUOROSCOPY DOSE AND TYPE: Radiation Exposure Index: Kerma mGy, 4.63 mGy COMPARISON: 03/22/2023 HISTORY: Intraprocedural imaging. FINDINGS: Spot intraoperative images are obtained demonstrating contrast within the common bile duct, intrahepatic ducts, and pancreatic duct, without filling defects. Contrast is also present within the cystic duct. IMPRESSION: Intraprocedural fluoroscopic spot images as above. See separate procedure report for more information. Interpreted by: Danny Cole MD Signed by: Danny Cole MD 03/23/23 Final result Normal [facility] Liver Profileon 03-23-2023 Albumin [Mass/Vol] 3.5 g/dL Normal 3.5-5.2 [facility] [facility] Comment on above: Performed By: #### L IVP, XLAV ####[facility] [id number], [place] [address] lab Director: Ronald Pearce MD Alkaline Phos 293 U/L High 35-104 [facility] Comment on above: Performed By: #### L IVP, XLAV ####[facility] [address] [place] [address] Lab Director: Ronald Pearce MD ALT [Catalytic activity/Vol] 111 U/L High 5-33 [facility] Comment on above: Performed By: #### L IVP, XLAV ####[facility] [address] [place] [address] Lab Director: Ronald Pearce MD AST [Catalytic activity/Vol] 43 U/L High <32 [facility] Comment on above: Performed By: #### L IVP, XLAV ####[facility] [id number] [place] [address] Lab Director: Ronald Pearce MD Bilirubin [Mass/Vol] 2.6 mg/dL High 0.3-1.2 [facility] Comment on above: Performed By: #### L IVP, XLAV ####[facility] [id number] [place] [address] Lab Director: Ronald Pearce MD Bilirubin, Indirect 0.8 mg/dL Normal 0.0-1.0 [facility] Comment on above: Performed By: #### L IVP, XLAV ####[facility] [id number] [place] [address] Lab Director: Ronald Pearce MD Bilirubin.indirect [Mass/Vol] 1.8 mg/dL High <0.3 [facility] Comment on above: Performed By: #### L IVP, XLAV ####[facility] [id number] [place] [address] Lab Director: Ronald Pearce MD Protein [Mass/Vol] 5.7 g/dL Low 6.4-8.3 [facility] Comment on above: Performed By: #### L IVP, XLAV ####[facility] [address] [place] [address] Lab Director: Ronald Pearce MD Surgical Pathology Reporton 03-23-2023 Surgical Pathology Report (NOTE) Path Number: [id number] -- Diagnosis -- A. GALLBLADDER AND CONTENTS, CHOLECYSTECTOMY: Cholelithiasis. Lulú Javed M.D. Electronically Signed Out kmg2/03/27/2023 Clinical Information Pre-op Diagnosis: ACUTE PANCREATITIS, UNSPECIFIED COMPLICATED STATUS, UNSPECIFIED TYPE Operative Findings: GALLBLADDER AND CONTENTS Operation Performed: LAPAROSCOPIC CHOLECYSTECTOMY tm Source of Specimen A: GALLBLADDER AND CONTENTS Gross Description BELGICA HARPER GALLBLADDER AND CONTENTS Received in formalin is an 8.5 x 4.0 x 3.7 cm intact and distended gallbladder. The serosa is pink-red to green-tinged and smooth, while the adventitia is finely roughened. There is a boss-brown, slightly speckled yellow and trabeculated mucosa with a wall thickness up to 0.5 cm. Within the lumen is green tenacious bile and multiple yellow bosselated choleliths and fragments from < 0.1 to 0.3 cm. No lesions or periductal lymph nodes are identified. Drag Out Man sections 1c. tm SM/tb1:03/24/2023 Microscopic Description Microscopic examination performed. Processing Lab: [address] [id number] Interpretation Performed at [address] [id number] SURGICAL PATHOLOGY CONSULTATION Patient Name: BELGICA HARPER Med Rec: [id number] [facility] ANATOMIC PATHOLOGY [address] [place] [address]. [place], [place] [id number] Normal [facility] CBC with Diffon 03-22-2023 Abs. Basophil <0.03 Normal 0.00-0.20 [facility] Comment on above: Performed By: #### C DP, LIP, CMPX #### [facility] [address] [facility] [place] [address] Optometry Doctor: Ronald Pearce MD #### TRIG #### [address] [id number] Optometry Doctor: Elio Marley MD Abs.Imm.Granulocyte 0.03 k/uL Normal 0.00-0.30 [facility] Comment on above: Performed By: #### C DP, LIP, CMPX #### [facility] [address] [place] [address] [id number] Optometry Doctor: Ronald Pearce MD #### TRIG #### [address] [id number] Optometry Doctor: Elio Marley MD Abs.Neutrophil (Seg) 6.89 k/uL Normal 1.50-8.10 [facility] Comment on above: Performed By: #### C DP, LIP, CMPX #### [facility] [address] [place] [address] Optometry Doctor: Ronald Pearce MD #### TRIG #### [address] [address] Optometry Doctor: Elio Marley MD Basophils/100 WBC (Bld) 0 % Normal 0-2 [facility] Comment on above: Performed By: #### C DP, LIP, CMPX #### [facility] [address] [place] [address] Optometry Doctor: Ronald Pearce MD #### TRIG #### [address] [address] Optometry Doctor: Elio Marley MD Eosinophils (Bld) [#/Vol] 0.07 10*3/uL Normal 0.00-0.44 [facility] Comment on above: Performed By: #### C DP, LIP, CMPX #### [facility] [address] [place] [address] Optometry Doctor: Ronald Pearce MD #### TRIG #### [address] [address] Optometry Doctor: Elio Marley MD Eosinophils/100 WBC (Bld) 1 % Normal 1-4 [facility] Comment on above: Performed By: #### C DP, LIP, CMPX #### [facility] [address] [place] [address] Optometry Doctor: Ronald Pearce MD #### TRIG #### [address] [address] Optometry Doctor: Elio Marley MD Erythrocyte distribution width (RBC) [Ratio] 12.2 % Normal 11.8-14.4 [facility] Comment on above: Performed By: #### C DP, LIP, CMPX #### [facility] [address] [place] [address] Optometry Doctor: Ronald Pearce MD #### TRIG #### [address] [address] Optometry Doctor: Elio Marley MD Hematocrit (Bld) [Volume fraction] 36.9 % Normal 36.3-47.1 [facility] Comment on above: Performed By: #### C DP, LIP, CMPX #### [facility] [address] [place] [address] Optometry Doctor: Ronald Pearce MD #### TRIG #### [address] [address] Optometry Doctor: Elio Marley MD Hemoglobin (Bld) [Mass/Vol] 12.1 g/dL Normal 11.9-15.1 [facility] Comment on above: Performed By: #### C DP, LIP, CMPX #### [facility] [address] [place] [address] Optometry Doctor: Ronald Pearce MD #### TRIG #### [address] [address] Optometry Doctor: Elio Marley MD Immature granulocytes/100 WBC (Bld) 0 % Normal 0 [facility] Comment on above: Performed By: #### C DP, LIP, CMPX #### [facility] [address] [place] [address] Optometry Doctor: Ronald Pearce MD #### TRIG #### [address] [address] Optometry Doctor: Elio Marley MD Lymphocytes (Bld) [#/Vol] 1.62 10*3/uL Normal 1.10-3.70 [facility] Comment on above: Performed By: #### C DP, LIP, CMPX #### [facility] [address] [place] [address] Optometry Doctor: Ronald Pearce MD #### TRIG #### [address] [address] Optometry Doctor: Elio Marley MD Lymphocytes/100 WBC (Bld) 18 % Low 24-43 [facility] Comment on above: Performed By: #### C DP, LIP, CMPX #### [facility] [place] [address] Optometry Doctor: Ronald Pearce MD #### TRIG #### [address] [address] Optometry Doctor: Elio Marley MD MCH (RBC) [Entitic mass] 32.5 pg Normal 25.2-33.5 [facility] Comment on above: Performed By: #### C DP, LIP, CMPX #### [facility] [place] [address] Optometry Doctor: Ronald Pearce MD #### TRIG #### [address] [address] Optometry Doctor: Elio Marley MD MCHC (RBC) [Mass/Vol] 32.8 g/dL Normal 28.4-34.8 [facility] Comment on above: Performed By: #### C DP, LIP, CMPX #### [facility] [address] [place] [address] Optometry Doctor: Ronald Pearce MD #### TRIG #### [address] [address] Optometry Doctor: Elio Marley MD MCV (RBC) [Entitic vol] 99.2 fL Normal 82.6-102.9 [facility] Comment on above: Performed By: #### C DP, LIP, CMPX #### [facility] [address] [place] [address] Optometry Doctor: Ronald Pearce MD #### TRIG #### [address] [address] Optometry Doctor: Elio Marley MD Monocytes (Bld) [#/Vol] 0.57 10*3/uL Normal 0.10-1.20 [facility] Comment on above: Performed By: #### C DP, LIP, CMPX #### [facility] [address] [place] [address] Optometry Doctor: Ronald Pearce MD #### TRIG #### [address] [address] Optometry Doctor: Elio Marley MD Monocytes/100 WBC (Bld) 6 % Normal 3-12 [facility] Comment on above: Performed By: #### C DP, LIP, CMPX #### [facility] [address] [place] [address] Optometry Doctor: Ronald Pearce MD #### TRIG #### [address] [address] Optometry Doctor: Elio Marley MD Neutrophil (Seg) 75 % High 36-[facility] Comment on above: Performed By: #### C DP, LIP, CMPX #### [facility] [address] [place] [address] Optometry Doctor: Ronald Pearce MD #### TRIG #### [address] [address] Optometry Doctor: Elio Marley MD NRBC Automated 0.0 per 100 WBC Normal 0.0 [facility] Comment on above: Performed By: #### C DP, LIP, CMPX #### [facility] [address] [place] [address] Optometry Doctor: Ronald Pearce MD #### TRIG #### [address] [address] Optometry Doctor: Elio Marley MD Platelet mean volume (Bld) [Entitic vol] 10.7 fL Normal 8.1-13.5 [facility] Comment on above: Performed By: #### C DP, LIP, CMPX #### [facility] [address] [place] [address] Optometry Doctor: Ronald Pearce MD #### TRIG #### [address] [address] Optometry Doctor: Elio Marley MD Platelets (Bld) [#/Vol] 188 10*3/uL Normal 138-453 [facility] Comment on above: Performed By: #### C DP, LIP, CMPX #### [facility] [place] [address] Optometry Doctor: Ronald Pearce MD #### TRIG #### [address] [address] Optometry Doctor: Elio Marley MD RBC (Bld) [#/Vol] 3.72 10*6/uL Low 3.95-5.11 [facility] Comment on above: Performed By: #### C DP, LIP, CMPX #### [facility] [address] [place] [address] Optometry Doctor: Ronald Pearce MD #### TRIG #### [address] [address] Optometry Doctor: Elio Marley MD WBC (Bld) [#/Vol] 9.2 10*3/uL Normal 3.5-11.3 [facility] Comment on above: Performed By: #### C DP, LIP, CMPX #### [facility] [address] [place] [address] Optometry Doctor: Ronald Pearce MD #### TRIG #### [address] [address] Optometry Doctor: Elio Marley MD Comp Metabolic Pr/rfx MGon 1 05-22-2022 Albumin [Mass/Vol] 3.5 g/dL Normal 3.5-5.2 [facility] Comment on above: Performed By: #### C DP, LIP, CMPX #### [facility] [address] [place] [address] Optometry Doctor: Ronald Pearce MD #### TRIG #### [address] [place] [address] Optometry Doctor: Elio Marley MD Alkaline Phos 157 U/L High 35-104 [facility] Comment on above: Performed By: #### C DP, LIP, CMPX #### [facility] [address] [place] [address] Optometry Doctor: Ronald Pearce MD #### TRIG #### [address] [address] Optometry Doctor: Elio Marley MD ALT [Catalytic activity/Vol] 131 U/L High 5-33 [facility] Comment on above: Performed By: #### C DP, LIP, CMPX #### [facility] [address] [place] [address] Optometry Doctor: Ronald Pearce MD #### TRIG #### [address] [address] Optometry Doctor: Elio Marley MD Anion gap [Moles/Vol] 11 mmol/L Normal 9-17 [facility] Comment on above: Performed By: #### C DP, LIP, CMPX #### [facility] [address] [place] [address] Optometry Doctor: Ronald Pearce MD #### TRIG #### [address] [address] Optometry Doctor: Elio Marley MD AST [Catalytic activity/Vol] 34 U/L High <32 [facility] Comment on above: Performed By: #### C DP, LIP, CMPX #### [facility] [address] [place] [address] Optometry Doctor: Ronald Pearce MD #### TRIG #### [address] [address] Optometry Doctor: Elio Marley MD Bilirubin [Mass/Vol] 1.9 mg/dL High 0.3-1.2 [facility] Comment on above: Performed By: #### C DP, LIP, CMPX #### [facility] [address] [place] [address] Optometry Doctor: Ronald Pearce MD #### TRIG #### [address] [address] Optometry Doctor: Elio Mraley MD BUN/CRE Ratio 17 Normal 9-20 [facility] Comment on above: Performed By: #### C DP, LIP, CMPX #### [facility] [address] [place] [address] Optometry Doctor: Ronald Pearce MD #### TRIG #### [address] [address] Optometry Doctor: Elio Marley MD Calcium [Mass/Vol] 8.1 mg/dL Low 8.6-10.4 [facility] Comment on above: Performed By: #### C DP, LIP, CMPX #### [facility] [address] [place] [address] Optometry Doctor: Ronald Pearce MD #### TRIG #### [address] [address] Optometry Doctor: Elio Marley MD Chloride [Moles/Vol] 105 mmol/L Normal 98-107 [facility] Comment on above: Performed By: #### C DP, LIP, CMPX #### [facility] [address] [place] [address] Optometry Doctor: Ronald Pearce MD #### TRIG #### [address] [place] [address] Optometry Doctor: Elio Marley MD CO2 [Moles/Vol] 21 mmol/L Normal 20-31 [facility] Comment on above: Performed By: #### C DP, LIP, CMPX #### [facility] [address] [place] [address] Optometry Doctor: Ronald Pearce MD #### TRIG #### [address] [address] Optometry Doctor: Elio Marley MD Creatinine [Mass/Vol] 0.6 mg/dL Normal 0.5-0.9 [facility] Comment on above: Performed By: #### C DP, LIP, CMPX #### [facility] [address] [place] [address] Optometry Doctor: Ronald Pearce MD #### TRIG #### [address] [address] Optometry Doctor: Elio Marley MD GFR/1.73 sq M.predicted among non-blacks MDRD (S/P/Bld) [Vol rate/Area] mL/min/{1.73_m2} Normal >60 [facility] Comment on above: Result Comment: These results are not intended for use in patients <18 years of age. eGFR results are calculated without a race factor using the 2020 CKD-EPI equation. Careful clinical correlation is recommended, particularly when comparing to results calculated using previous equations. The CKD-EPI equation is less accurate in patients with extremes of muscle mass, extra-renal metabolism of creatine, excessive creatine ingestion, or following therapy that affects renal tubular secretion. Performed By: #### C DP, LIP, CMPX #### [facility] [address] [place] [address] Optometry Doctor: Ronald Pearce MD #### TRIG #### [address] [address] Optometry Doctor: Elio Marley MD Glucose [Mass/Vol] 75 mg/dL Normal 70-99 [facility] Comment on above: Performed By: #### C DP, LIP, CMPX #### [facility] [address] [place] [address] Optometry Doctor: Ronald Pearce MD #### TRIG #### [address] [address] Optometry Doctor: Elio Marley MD Potassium [Moles/Vol] 4.0 mmol/L Normal 3.7-5.3 [facility] Comment on above: Performed By: #### C DP, LIP, CMPX #### [facility] [address] [place] [address] Optometry Doctor: Ronald Pearce MD #### TRIG #### [address] [address] Optometry Doctor: Elio Marley MD Protein [Mass/Vol] 5.7 g/dL Low 6.4-8.3 [facility] Comment on above: Performed By: #### C DP, LIP, CMPX #### [facility] [address] [place] [address] Optometry Doctor: Ronald Pearce MD #### TRIG #### [address] [address] Optometry Doctor: Elio Marley MD Sodium [Moles/Vol] 137 mmol/L Normal 135-144 [facility] Comment on above: Performed By: #### C DP, LIP, CMPX #### [facility] [address] [place] [address] Optometry Doctor: Ronald Pearce MD #### TRIG #### [address] [address] Optometry Doctor: Elio Marley MD Urea nitrogen [Mass/Vol] 10 mg/dL Normal 6-20 [facility] Comment on above: Performed By: #### C DP, LIP, CMPX #### [facility] [address] [place] [address] Optometry Doctor: Ronald Pearce MD #### TRIG #### [address] [address] Optometry Doctor: Elio Marley MD K (Potassium)on 03-22-2023 Potassium [Moles/Vol] 3.8 mmol/L Normal 3.7-5.3 [facility] Comment on above: Performed By: #### K #### [facility] [address] [place] [address] Optometry Doctor: Ronald Pearce MD Lipaseon 03-22-2023 Lipase [Catalytic activity/Vol] 198 U/L High 13-60 [facility] Comment on above: Performed By: #### C DP, LIP, CMPX #### [facility] [address] [place] [address] Optometry Doctor: Ronald Pearce MD #### TRIG #### [address] [address] Optometry Doctor: Elio Marley MD MRI ABDOMEN WO CONTRAST MRCP on 03-22-2023 MRI ABDOMEN WO CONTRAST MRCP EXAMINATION: MRI OF THE ABDOMEN WITHOUT CONTRAST AND MRCP 03/22/2023 7:31 am TECHNIQUE: Multiplanar multisequence MRI of the abdomen was performed without the administration of intravenous contrast. After initial T2 axial and coronal images, thick slab, thin slab and 3D coronal MRCP sequences were obtained without the administration of intravenous contrast. MIP images are provided for review. COMPARISON: None HISTORY: ORDERING SYSTEM PROVIDED HISTORY: dilated CBD, pancreatitis TECHNOLOGIST PROVIDED HISTORY: dilated CBD, pancreatitis Reason for Exam: chronic pancreatitis FINDINGS: Motion artifact degrades the study.. This decreases sensitivity and specificity Trace pleural fluid is seen bilaterally. Gallbladder: Gallbladder is distended. There is trace pericholecystic fluid. No gallstones noted. Bile Ducts: There is mild intrahepatic biliary ductal dilatation. Extrahepatic common duct measures 9 mm. Subtle areas of T2 hypointense signal change are seen in the extrahepatic common duct, with morphology most suggestive of flow related artifact from bile rather than common duct stone Pancreatic Duct: No pancreatic ductal dilatation. There is ill-defined peripancreatic fluid and edema. Other: There is borderline splenomegaly. There is trace perisplenic fluid. There is trace perihepatic fluid Adrenal glands unremarkable. No hydronephrosis on right. No hydronephrosis on left. No significant small bowel distention noted. Moderate stool load seen in colon. No retroperitoneal adenopathy. IMPRESSION: Ill-defined peripancreatic fluid and edema, in keeping with the reported history of pancreatitis. Trace fluid is seen extending inferiorly into the pericolic gutters. Mild biliary ductal dilatation is seen. Subtle areas of T2 hypointense signal change are seen in the common duct, with flow related artifact from bile favored as the most likely etiology rather than retained common duct stone Interpreted by: Daniel Hooker MD Strub, William M, MD Signed by: Daniel Hooker MD 03/22/23 Final result Normal [facility] Triglycerideson 03-22-2023 Triglyceride [Mass/Vol] 102 mg/dL Normal 0-149 [facility] Comment on above: Result Comment: Triglyceride Guidelines: <150 Desirable 150-199 Borderline 200-499 High >499 Very high Based on AHA Guidelines for fasting triglyceride, January 2012. Performed By: #### C DP, LIP, CMPX #### [facility] [address] [place], [place] [id number] Optometry Doctor: Ronald Pearce MD #### TRIG #### [facility] [address] [place], [place] [id number] Optometry Doctor: MD Lincoln Gordillo 03-20-2023 HUYEN Telephone (FVPRAD) BELGICA HARPER ([id number]) 1990 F Date Time Provider Department 03/20/23 LAWRENCE CAMPUZANO During your visit today, we recorded the following information about you: Lawrence Campuzano MD 03/20/2023 6:32 PM Signed Patient is a 32-year-old female with past medical history of gastroparesis presented to ED complaining of nausea vomiting and abdominal pain. CT abdomen showed pancreatitis. Lipase 2400. LFTs elevated. Ultrasound abdomen showed common bile duct dilation 11 mm. ED physician spoke to gastroenterology who recommended transfer for ERCP. Patient is hemodynamically stable. Received 2 L of fluids and IV antibiotics per GI recommendation. Requested to give IV PPI prior to transfer. Allergies As of Date: 03/20/2023 Noted Allergy Reaction IV CONTRAST (IODINE) 04/11/2019 7 - Swelling 9 - Itching Comments: Omnipaque 300: Patient experienced itching on her neck and left side of her face. Also, pt complained of tongue feeling itchy and feels like something is stuck in her throat . Patient received diphenhydramine (Benadryl) OMNIPAQUE (IOHEXOL) 04/12/2019 9 - Itching Date Reviewed: 11/02/2022 Reviewed by: Samuel Freeman MD - Fully Assessed Prescriptions as of 03/20/2023 - tenapanor (IBSRELA) 50 mg tablet Take 1 tablet (50 mg) by mouth twice daily. - prucalopride 2 mg tablet (MOTEGRITY) Take 1 tablet (2 mg) by mouth once daily. - pantoprazole DR (PROTONIX) 40 mg tablet Take 1 tablet by mouth twice daily before meals for 14 days. - lisdexamfetamine (VYVANSE) 10 mg capsule Take 10 mg by mouth once daily. - buPROPion SR (ZYBAN SR; WELLBUTRIN SR) 150 mg 12 hr tablet - cariprazine (VRAYLAR) 4.5 mg capsule 1 capsule. - ALPRAZolam (XANAX) 0.25 mg tablet Take 0.25 mg by mouth twice daily. - cariprazine (VRAYLAR) 3 mg cap Take by mouth once daily. Facility-Administered Medications as of 03/20/2023 - lidocaine (PF) 10 mg/mL (1 %) 1-2 mg injection (XYLOCAINE) - NaCl 0.9% iv infusion Problem List As Of Date 03/20/2023 Noted Resolved Gastroparesis [K31.84] 11/02/2022 Encounter Status:Closed by LAWRENCE CAMPUZANO on 03/20/23 [facility] Ambulatory Visit Summaryon 0 11-07-2022 Ambulatory Visit Summary BELGICA HARPER :1990 Visit Date:11/07/2022 Ambulatory Visit Instructions Your Diagnosis Recurrent UTI Kidney stones Tests Performed Urnls Dip Stick Auto w/o Microscopy POC 45403 XR Abdomen 1 View -- Results Pending -- Please visit your patient portal for your results or contact your primary care physician. Your Care Team Attending Physician - Madhuri MISHRA MD Primary Care Physician - GIOVANI HAGEN MD This Is Your Medications List Contact prescribing physician if questions or concerns acetaminophen (Tylenol) albuterol alprazolam (Xanax 0.25 mg Tab) baclofen buPROPion (Wellbutrin SR) cariprazine (Vraylar 1.5 mg oral capsule) ibuprofen tramadol Procedures Performed Cystourethroscopy with dilation of urethral stricture (05/01/2019), Facet Medial Branch Block (09/18/2018), Injection of sacroiliac joint using fluoroscopic guidance (07/31/2018), Injection of sacroiliac joint using fluoroscopic guidance (07/02/2018), section, section, section, Hysterectomy. Discharge Vitals Heart Rate (Peripheral) 100 Respiratory Rate 16 Blood Pressure 124/89 Height 158 cm Height 62 in Weight 84.4 kg Weight 185.68 lb BMI 33.81 What to do next Scheduled Follow-Up Appointments Monday 3:00 PM EDT With: Madhuri MISHRA MD Where: [facility] Patient Educationon 11-08-19 Patient Education Nephrology Dietary Guidelines to Help Prevent Kidney Stones Kidney stones are deposits of minerals and salts that form inside your kidneys. Your risk of developing kidney stones may be greater depending on your diet, your lifestyle, the medicines you take, and whether you have certain medical conditions. Most people can lower their chances of developing kidney stones by following the instructions below. Your dietitian may give you more specific instructions depending on your overall health and the type of kidney stones you tend to develop. What are tips for following this plan? Reading food labels ? Choose foods with no salt added or low-salt labels. Limit your salt (sodium) intake to less than 1,500 mg a day. ? Choose foods with calcium for each meal and snack. Try to eat about 300 mg of calcium at each meal. Foods that contain 200?500 mg of calcium a serving include: ? 8 oz (237 mL) of milk, ohbguja-etkcdtvtrlds-x airy milk, and calcium-fortifiedfruit juice. Calcium-fortified means that calcium has been added to these drinks. ? 8 oz (237 mL) of kefir, yogurt, and soy yogurt. ? 4 oz (114 g) of tofu. ? 1 oz (28 g) of cheese. ? 1 cup (150 g) of dried figs. ? 1 cup (91 g) of cooked broccoli. ? One 3 oz (85 g) can of sardines or mackerel. Most people need 1,000?1,500 mg of calcium a day. Talk to your dietitian about how much calcium is recommended for you. Shopping ? Buy plenty of fresh fruits and vegetables. Most people do not need to avoid fruits and vegetables, even if these foods contain nutrients that may contribute to kidney stones. ? When shopping for convenience foods, choose: ? Whole pieces of fruit. ? Pre-made salads with dressing on the side. ? Low-fat fruit and yogurt smoothies. ? Avoid buying frozen meals or prepared deli foods. These can be high in sodium. ? Look for foods with live cultures, such as yogurt and kefir. ? Choose high-fiber grains, such as whole-wheat breads, oat bran, and wheat cereals. Cooking ? Do not add salt to food when cooking. Place a salt shaker on the table and allow each person to add his or her own salt to taste. ? Use vegetable protein, such as beans, textured vegetable protein (TVP), or tofu, instead of meat in pasta, casseroles, and soups. Meal planning ? Eat less salt, if told by your dietitian. To do this: ? Avoid eating processed or pre-made food. ? Avoid eating fast food. ? Eat less animal protein, including cheese, meat, poultry, or fish, if told by your dietitian. To do this: ? Limit the number of times you have meat, poultry, fish, or cheese each week. Eat a diet free of meat at least 2 days a week. ? Eat only one serving each day of meat, poultry, fish, or seafood. ? When you prepare animal protein, cut pieces into small portion sizes. For most meat and fish, one serving is about the size of the palm of your hand. ? Eat at least five servings of fresh fruits and vegetables each day. To do this: ? Keep fruits and vegetables on hand for snacks. ? Eat one piece of fruit or a handful of berries with breakfast. ? Have a salad and fruit at lunch. ? Have two kinds of vegetables at dinner. ? Limit foods that are high in a substance called oxalate. These include: ? Spinach (cooked), rhubarb, beets, sweet potatoes, and [place] chard. ? Peanuts. ? Potato chips, ukrainian fries, and baked potatoes with skin on. ? Nuts and nut products. ? Chocolate. ? If you regularly take a diuretic medicine, make sure to eat at least 1 or 2 servings of fruits or vegetables that are high in potassium each day. These include: ? Avocado. ? Banana. ? [place], prune, carrot, or tomato juice. ? Baked potato. ? Cabbage. ? Beans and split peas. Lifestyle ? Drink enough fluid to keep your urine pale yellow. This is the most important thing you can do. Spread your fluid intake throughout the day. ? If you drink alcohol: ? Limit how much you use to: ? 0?1 drink a day for women who are not . ? 0?2 drinks a day for men. ? Be aware of how much alcohol is in your drink. In the [place] one drink equals one 12 oz bottle of beer (355 mL), one 5 oz glass of wine (148 mL), or one 1? oz glass of hard liquor (44 mL). ? Lose weight if told by your health care provider. Work with your dietitian to find an eating plan and weight loss strategies that work best for you. General information ? Talk to your health care provider and dietitian about taking daily supplements. You may be told the following depending on your health and the cause of your kidney stones: ? Not to take supplements with vitamin C. ? To take a calcium supplement. ? To take a daily probiotic supplement. ? To take other supplements such as magnesium, fish oil, or vitamin B6. ? Take pzbw-ylu-vpbwssh and prescription medicines only as told by your health care provider. These include supplements. What foods should I limit? Limit your in (more content not included)... Normal [facility] Reminderson 11-07-2022 Reminders - From: Gina Wright To: AUSTIN Mishra; Sent: 11/07/2022 15:54:50 EDT Show up: 10/09/2023 15:54:00 EDT Subject: KUB Reminder Message Please Remember to:_have to get KUB done (at [facility]) prior to next appt. Normal [facility] Urology Office/Clinic Noteon 11-07-2022 Urology Office/Clinic Note Chief Complaint kidney stones HPI Staff 4 month f/u with metabolic work up. Previous dx of recurrent UTI and kidney stones. Pt states that she was treated 3 weeks ago for UTI by Dr. Hagen. Pt states that she has been having left sided flank pain that radiates to the front for months now. No current imaging since June. Dysuria: no Incomplete bladder emptying: no Hematuria: no Frequency: yes Urgency: yes Nocturia: 1-2x Stream: good steady Leaking: no Post void dripping: no Wearing pads/ Depends: no Urge incontinence: no Stress incontinence: no Incontinence without Sensory Awareness: no Abdominal pain: left sided that radiates from the back Flank pain: left sided Sexual complaints: no History of Present Illness Tests reviewed: reviewed UA, metabolic workup I have reviewed the previous health record information and history for this patient from Dr. Mishra. I have reviewed and verified the staff HPI to be accurate for this encounter. There have been no associated fever, chills, flank pain, or blood in the urine. Denies any urinary infections since last encounter. Review of Systems PHQ Score Initial Depression Screen Score: 0 ROS - Provider Constitutional: denies weight loss, denies hot flashes. Eyes: denies eye problems. Gastrointestinal: denies nausea, denies vomiting. Cardiovascular: denies chest pain or angina. Integumentary: no dryness Musculoskeletal: denies musculoskeletal symptoms. ENMT: denies otolaryngeal symptoms. Respiratory: no shortness of breath. Heme/Lymph: denies easy bleeding tendency, denies easy bruising tendency. Psychiatric: no confusion, no anxiety. Genitourinary: See HPI. Physical Exam Vitals & Measurements HR: 100(Peripheral) RR: 16 BP: 124/89 HT: 62 in HT: 158 cm WT: 84.4 kg WT: 185.68 lb BMI: 33.81 General Appearance: alert , no acute distress, well nourished, well developed female. Genitourinary: bladder nonpalpable, no flank pain. Assessment/Plan 1. Recurrent UTI (N39.0: Urinary tract infection, site not specified) S/p Cysto/UD 05/01/19 and 07/05/22 - dilated to 30Fr Positive urine culture 06/29/22 - E. coli, treated with Keflex. Pt states she has had 3 UTIs since 06/2022. UA today negative for blood and infection. Pt reports she feels empty after voiding. 2. Kidney stones (N20.0: Calculus of kidney) S/p R ESWL. KUB 06/29/22 at [facility] - negative Metabolic workup 07/08/22 - slightly elevated Na (149), low output volume (1000 mL) Recommended pt to increase fluid intake to ten to twelve 16oz bottles a day; preferably water, clear pop, and sugar free lemonade. Pt reports she is unable to consume increased fluid or food due to gastro complications. Pt reports she vomits daily. Follows with [facility]. Follow up in 1 year with KUB or sooner if needed. All questions/concerns were discussed. Pt to call the office if she encounters any issues prior. Pt acknowledges understanding. Follow-up With When Contact Information DANICA FRIEDMAN, Madhuri Kendrick, URL [facility] [address], [place] [address]- [phone] Additional Instructions: 1 year w/ KUB Patient Education Dietary Guidelines to Help Prevent Kidney Stones I, Gina Wright, personally scribed for Dr. Mishra on 11/07/2022 15:52:44. . Documentation recorded by the scribe, Gina Wright, accurately reflects the services(s) I performed and decisions made by me. Authenticated by Dr. Mishra on 11/07/2022 15:58:44. Problem List/Past Medical History Ongoing Dysuria Kidney stones Recurrent UTI Smoker Urinary frequency UTI (urinary tract infection) Historical No qualifying data Procedure/Surgical History Cystourethroscopy with dilation of urethral stricture (05/01/2019), Facet Medial Branch Block (09/18/2018), Injection of sacroiliac joint using fluoroscopic guidance (07/31/2018), Injection of sacroiliac joint using fluoroscopic guidance (07/02/2018), section, section, section, Hysterectomy. Medications albuterol baclofen, Oral, TID ibuprofen, 800 mg, Oral, Daily, PRN tramadol, Oral Tylenol, 1000 mg, Oral, Daily, PRN Vraylar 1.5 mg oral capsule, 1.5 mg= 1 cap(s), Oral, Daily Wellbutrin SR, Oral, BID Xanax 0.25 mg Tab, 0.25 mg= 1 tab(s), Oral, BID, PRN Allergies No Known Medication Allergies Social History Alcohol - Low Risk, 08/27/2018 Current, Beer, 1-2 times per week, 06/12/2018 Substance Abuse - Denies Substance Abuse, 06/12/2018 Tobacco - Denies Tobacco Use, 08/27/2018 Former smoker, quit more than 30 days ago Tobacco Use:. Never Smokeless Tobacco Use:., 06/29/2022 10 or more cigarettes (1/2 pack or more)/day in last 30 days Tobacco Use:., 10/12/2018 Immunizations Vaccine Date Status Comments SARSCoV2 mRNA(kmgalufst-wgve-hi cros) vac 11/02/2021 Recorded SARS-CoV-2 (COVID-19) mRNA BNT-162b2 vax 04/29/2021 Recorded SARS-CoV-2 (COVID-19) mRNA BNT-162b2 vax 03/03/2021 Recor (more content not included)... Normal [facility] Comment on above: Result Comment: Elec tronically Signed By: Madhuri MISHRA MD\.br\Date and Time Signed: 11/07/22 15:58 EDT\.br\Electronically Co-Signed By: Gina Wright\.br\Date and Time Co-Signed: 11/07/22 15:52 EDT DENY Antinuclear Antibodieson 10-26-2022 Antinuclear Abs, IFA Negative Normal . [facility] Comment on above: Order Comment: Reaso n for Exam Elevated liver enzymes Result Comment: Nega tive <1:80 Borderline 1:80 Positive >1:80 ICAP nomenclature: AC-0 For more information about Hep-2 cell patterns use ANApatterns.org, the official website for the International Consensus on Antinuclear Antibody (DENY) Patterns (ICAP). Performed at: [facility] [place] [address] Optometry Doctor: Demarcus Moreno PhD, Phone: [phone] Performed By: #### A NA, HEMOCHROM, IGG, MITOM2, ALPHA PHEN, HAABT, SMAB, CERULOP, L-K MICRO #### [facility] , #### [place] #### [facility] [address] [place] [address] Vofmi-9-Cjeuaxdmani Phenotyp kwasi 10-26-2022 Alpha 1 Anti-Trypsin 121 mg/dL Normal 100-188 [facility] Comment on above: Order Comment: Reaso n for Exam Elevated liver enzymes Performed By: #### A NA, HEMOCHROM, IGG, MITOM2, ALPHA PHEN, HAABT, SMAB, CERULOP, L-K MICRO #### [facility] , #### [place] #### [facility] [address] [place] [address] Phenotype (P1) MM Normal . [facility] Comment on above: Order Comment: Reaso n for Exam Elevated liver enzymes Result Comment: Phen otype Population A-1-AT Concentration* Incidence % % of MM (Typical Range) MM 86.5% 100% (96 - 189) MS 8.0% 86% (83 - 161) MZ 3.9% 61% (60 - 111) FM 0.4% 100% (93 - 191) SZ 0.3% 41% (42 - 75) SS 0.1% 64% (62 - 119) ZZ 0.05% 19% (16 - 38) FS 0.05% 70% (70 - 128) FZ Unknown 46% (44 - 88) FF Unknown Unknown *A-1-AT concentration in the homozygous MM phenotype is taken as the reference normal. Percent deficiency in each phenotype is reported relative to this reference. Ranges used to confirm phenotype. Performed at: [address] [id number] Optometry Doctor: Demarcus Moreno PhD, Phone: [phone] Performed at: [address] [id number] Optometry Doctor: Yuli Callejas MD, Phone: [phone] Performed By: #### A NA, HEMOCHROM, IGG, MITOM2, ALPHA PHEN, HAABT, SMAB, CERULOP, L-K MICRO #### [facility] , #### [place] #### [address] Ceruloplasminon 10-26-2022 Ceruloplasmin 27.2 mg/dL Normal 19.0-39.0 [facility] Comment on above: Order Comment: Reaso n for Exam Elevated liver enzymes Result Comment: Perf ormed at: [address] [id number] Optometry Doctor: Demarcus Moreno PhD, Phone: [phone] PERFORMED BY: [place] [address] PATHOLOGIST PIGMENT SUPPLIER ILIANA CAMP M.D. Performed By: #### A NA, HEMOCHROM, IGG, MITOM2, ALPHA PHEN, HAABT, SMAB, CERULOP, L-K MICRO #### [facility] , #### [place] #### [facility] [address] [place] [address] Ferritinon 10-26-2022 Ferritin [Mass/Vol] 106.5 ng/mL Normal 11.0-306.8 [facility] Comment on above: Order Comment: pt is fasting Reason for Exam Elevated liver enzymes Result Comment: PERF ORMED BY: [place] [address] PATHOLOGIST PIGMENT SUPPLIER ILIANA CAMP M.D. Performed By: #### A NA, HEMOCHROM, IGG, MITOM2, ALPHA PHEN, HAABT, SMAB, CERULOP, L-K MICRO #### [facility] , #### [place] #### [address] Ferritin [Mass/volume] in Se rum or PlasmaOrdered By: Erwin Hylton on 10-26-2022 Ferritin [Mass/Vol] 106.5 ng/mL 11.0-306.8 [facility] Hepatitis A Antibody Totalon 10-26-2022 Hepatitis A Antibody Total Negative Normal Negative [facility] Comment on above: Order Comment: Reaso n for Exam Elevated liver enzymes Result Comment: Perf ormed at: - [facility] [address] [id number] Optometry Doctor: Demarcus Moreno PhD, Phone: [phone] PERFORMED BY: [place] [address] PATHOLOGIST PIGMENT SUPPLIER ILIANA CAMP M.D. Performed By: #### A NA, HEMOCHROM, IGG, MITOM2, ALPHA PHEN, HAABT, SMAB, CERULOP, L-K MICRO #### [facility] , #### [place] #### [facility] [address] [place] [address] Hereditary Hemochromatosis,D NAon 10-26-2022 Hereditary Hemochromatosis Normal . [facility] Comment on above: Order Comment: Reaso n for Exam Elevated liver enzymes Result Comment: Resu lt: c.845G>A (p.Ipy778Evf) - Not Detected c.187C>G (p.Qao84Clv) - Not Detected c.193A>T (p.Vbf10Vyb) - Not Detected Not associated with increased risk to develop clinical symptoms of Hereditary Hemochromatosis. In symptomatic individuals, other causes of iron overload should be evaluated. See Additional Information and Comments. Additional Clinical Information: Hereditary hemochromatosis (HFE related) is an autosomal recessive iron storage disorder. Patients may have a genetic diagnosis of hereditary hemochromatosis and never show clinical symptoms. Clinical symptoms typically appear between 40 to 60 years in males and after menopause in females. Signs and symptoms may include organ damage, primarily in the liver, risk for hepatocellular carcinoma, diabetes, and heart disease due to iron accumulation. Life expectancy may be decreased in individuals who develop cirrhosis. Treatment for clinically symptomatic individuals may include therapeutic phlebotomy. Liver transplant may be used to treat end stage liver failure. For preventive care, monitoring for iron overload is recommended for patients who are homozygous for c.845G>A (p.Ayt204Fsw) and have yet to experience clinical symptoms. Comments: The most common HFE variants associated with hereditary hemochromatosis are c.845G>A (p.Ldo071Upi), c.187C>G (p.Oxo91Pen), c.193A>T (p.Pac59Svb). While patients homozygous for c.845G>A (p.Jug460Xwf) are the most likely to present clinical symptoms, less than 10% develop clinically significant iron overload with tissue and organ damage. Genetic counseling is recommended to discuss the potential clinical implications of positive results, as well as recommendations for testing family members. Genetic Coordinators are available for health care providers to discuss results at [phone]). Test Details: Three variants analyzed: c.845G>A (p.Jdd427Jyb), commonly referred to as C282Y c.187C>G (p.Wvh76Ccj), commonly referred to as H63D c.193A>T (p.Ugm42Hmj), commonly referred to as S65C Methods/Limitations: DNA Analysis of the HFE gene (NM_000410.4) was performed by PCR amplification followed by restriction enzyme digestion analyses. Results must be combined with clinical information for the most accurate interpretation. Molecular- based testing is highly accurate, but as in any laboratory test, diagnostic errors may occur. False positive or false negative results may occur for reasons that include genetic variants, blood transfusions, bone marrow transplantation, somatic or tissue-specific mosaicism, mislabeled samples, or erroneous representation of family relationships. This test was developed and its performance characteristics determined by [facility]. It has not been cleared or approved by the Food and Drug Administration. References: Brodie BR, Yoav PC, Deborah KV, Raymond LW, Ramsey ; [place] [employer] Liver Diseases. Diagnosis and management of hemochromatosis: 2011 practice guideline by the [place] [employer] the [employer] of Liver Diseases. Hepatology. 2011 Oct;54(1):328-43. doi: 10.1002/hep.75131. PMID: 98743073; PMCID: QJV6212134. Cora G, Olegario P, Fabio DW, Tabatha H, Love O, Zev S, Vazuqez I, Kofi M, Sunitha S. [facility] best practice guidelines for the molecular genetic diagnosis of hereditary hemochromatosis (HH). Eur J Hum Margaret. 2016 Jul;24(4):479-95. doi: 10.1038/ejhg.2015.128. Epub 2014Oct 29. PMID: 59698991; PMCID: [id number]. Performed By: #### A NA, HEMOCHROM, IGG, MITOM2, ALPHA PHEN, HAABT, SMAB, CERULOP, L-K MICRO #### [facility] , #### [place] #### [place] [address] [place] Reviewed by: Dm Reyna, PhD Normal . [facility] Comment on above: Order Comment: Reaso n for Exam Elevated liver enzymes Result Comment: Perf ormed at: TG - [facility] [address] [facility], [facility], [place] [id number] Optometry Doctor: Vivian Kelley [facility], Phone: [phone] PERFORMED BY: [place] [address] PATHOLOGIST PIGMENT SUPPLIER ILIANA CAMP M.D. Performed By: #### A NA, HEMOCHROM, IGG, MITOM2, ALPHA PHEN, HAABT, SMAB, CERULOP, L-K MICRO #### [facility] , #### [place] #### [facility] [address] [place] [address] [place] Immunoglobulin Harvey Immunoglobulin G 865 mg/dL Normal 586-1602 [facility] Comment on above: Order Comment: Reaso n for Exam Elevated liver enzymes Result Comment: Perf ormed at: - [facility] [address] [id number] Optometry Doctor: Demarcus Moreno PhD, Phone: [phone] Performed By: #### A NA, HEMOCHROM, IGG, MITOM2, ALPHA PHEN, HAABT, SMAB, CERULOP, L-K MICRO #### [facility] , #### [place] #### [address] Liver-Kidney Microsomal Abon 10-26-2022 Liver-Kidney Microsomal Ab <1.0 Normal 0.0-20.0 [facility] Comment on above: Order Comment: Reaso n for Exam Elevated liver enzymes Result Comment: Nega tive 0.0 - 20.0 Equivocal 20.1 - 24.9 Positive >24.9 LKM type 1 antibodies are detected in patients with autoimmune hepatitis type 2 and in up to 8% of patients with chronic HCV infection. Performed By: #### A NA, HEMOCHROM, IGG, MITOM2, ALPHA PHEN, HAABT, SMAB, CERULOP, L-K MICRO #### [facility] , #### [place] #### [address] Mitochondrial (M2) Antibodyo n 10-26-2022 Mitochondrial (M2) Antibody <20.0 Normal 0.0-20.0 [facility] Comment on above: Order Comment: Reaso n for Exam Elevated liver enzymes Result Comment: Nega tive 0.0 - 20.0 Equivocal 20.1 - 24.9 Positive >24.9 Mitochondrial (M2) Antibodies are found in 90-96% of patients with primary biliary cirrhosis. Performed at: - [facility] [id number] Optometry Doctor: Demarcus Moreno PhD, Phone: [phone] Performed By: #### A NA, HEMOCHROM, IGG, MITOM2, ALPHA PHEN, HAABT, SMAB, CERULOP, L-K MICRO #### [facility] , #### [place] #### [address] Smooth Muscle Antibodyon Smooth Muscle Antibody 4 Normal 0-19 [facility] Comment on above: Order Comment: Reaso n for Exam Elevated liver enzymes Result Comment: Nega tive 0 - 19 Weak positive 20 - 30 Moderate to strong positive >30 Actin Antibodies are found in 52-85% of patients with autoimmune hepatitis or chronic active hepatitis and in 22% of patients with primary biliary cirrhosis. Performed By: #### A NA, HEMOCHROM, IGG, MITOM2, ALPHA PHEN, HAABT, SMAB, CERULOP, L-K MICRO #### [facility] , #### [place] #### [address] US liveron 10-26-2022 liver [facility] [place] [address] Ultrasound Report Signed Patient: Belgica Harper MR#: [id number] : 1990 Acct:[id number] Age/Sex: 32 / F ADM Date: 10/26/22 Loc: Room: Type: [facility] Attending Dr: Erwin Hylton MD Ordering Provider: Erwin Hylton MD Date of Service: 10/26/22 US/US liver: Abnormal ultrasound Copies to: Erwin Hylton MD LIMITED ABDOMINAL ULTRASOUND: CLINICAL HISTORY: Elevated ALP COMPARISON: CT abdomen and pelvis 02/08/2019 TECHNIQUE: Grayscale and color Doppler images of the right upper quadrant organs were obtained. FINDINGS: Pancreas: Visualized portions appear unremarkable. Liver: Fatty infiltration without mass or intrahepatic ductal dilatation. Hepatopedal flow is seen within the portal vein. 2.3 cm cyst. Gallbladder: Unremarkable. CBD: 5 mm US/US liver IMPRESSION: FATTY INFILTRATION OF THE LIVER. NO ACUTE PROCESS.. Impression dictated by: Alexandro Perdomo Jr., D.O.10/26/2022 3:24 PM Dictation Location: [place] [address] Tech: Francia Lopez Transcribed By: GRANT 10/26/22 152 Dictated By: Alexandro Perdomo Jr, DO 10/26/22 1523 Signed By: 10/26/22 1524 Normal [facility] ACETYLCHOLINE REC BINDING AB on 10-17-2022 ACETYLCHOLINE BINDING, QUAL Negative Normal Negative [facility] Comment on above: Order Comment: Rl basilio Type: BLOOD SPECIMEN Ordering Facility: [facility] Address: [address] [place] [address] Result Comment: Anti -acetylcholine receptor binding antibody test is used as an aid in diagnosis of myasthenia gravis. A negative result cannot exclude myasthenia gravis. Clinical correlation is required. Performed By: #### 3 016-3, 1987-08, 2156-09 #### [facility] CLIA [id number] [facility] [place] [address] [place] Acetylcholine receptor binding Ab (S) [Moles/Vol] <0.02 Normal <0.21 [facility] Comment on above: Order Comment: Rl basilio Type: BLOOD SPECIMEN Ordering Facility: [facility] Address: [address] [place] [address] Performed By: #### 3 016-3, 2156-09 #### [facility] CLIA [id number] [facility] [place] [address] [place] AMINO ACIDS, PLASMA W/ CONSU LTATIONon 10-17-2022 Alanine [Moles/Vol] 310 umol/L Normal 177-583 [facility] Comment on above: Order Comment: Rl basilio Type: BLOOD SPECIMEN Ordering Facility: [facility] Address: [address] [place] [address] Performed By: #### 3 016-3, 2156-09 #### [facility] CLIA [id number] [place], [place] [address] [place] [address] [place] Alloisoleucine [Moles/Vol] 2 umol/L Normal 0-2 [facility] Comment on above: Order Comment: Speci men Type: BLOOD SPECIMEN Ordering Facility: [facility] Address: [address] [place] [address] Performed By: #### 3 016-3, 1987-08, 2156-09 #### [facility] [place] [id number] [place], [place] [id number] [place] [address] [place] Alpha aminoadipate [Moles/Vol] <1 Normal 0-6 [facility] Comment on above: Order Comment: Speci men Type: BLOOD SPECIMEN Ordering Facility: [facility] Address: [address] [place] [address] Performed By: #### 3 , 1987-08, 2156-09 #### [facility] [place] [id number] [address] [address] STRE[address] OF [facility] AMINO ACID CONSULTATION, PLASMA Normal [facility] Comment on above: Order Comment: Speci men Type: BLOOD SPECIMEN Ordering Facility: [facility] Address: [address] [place] [address] Result Comment: This plasma amino acid analysis shows no significant abnormalities. Reference intervals from Isacc E, Len MG, Kate FANTASMA, and Christopher DK: Biochemical Genetics: A Laboratory Manual, Copyright 1989 by [employer] Reference intervals not established for some amino acids. This test was developed and its performance characteristics determined by [facility]'s [facility] [place] ([facility] It has not been cleared or approved by the FDA. -[facility] is regulated under CLIA as qualified to perform high complexity testing. This test is used for clinical purposes. It should not be regarded as investigational or for research. Performed By: #### 3 016-3, 1987-08, 2156-09 #### [facility] [place] [id number] [address] [place] [address] [facility] AMINO ACIDS REVIEW, PLASMA Reviewed by Patrick Proctor MD, Ph.D ([id number]) Normal [facility] Comment on above: Order Comment: Speci men Type: BLOOD SPECIMEN Ordering Facility: [facility] Address: [address] [address] Performed By: #### 3 016-3, 1987-08, 2156-09 #### [facility] CLIA [id number] [address] [place] [address] [place] Arginine [Moles/Vol] 77 umol/L Normal 15-128 [facility] Comment on above: Order Comment: Speci men Type: BLOOD SPECIMEN Ordering Facility: [facility] Address: [address] [address] Performed By: #### 3 016-3, 1987-08, 2156-09 #### [facility] CLIA [id number] [address] [place] [address] [place] Asparagine [Moles/Vol] 44 umol/L Normal 35-74 [facility] Comment on above: Order Comment: Speci men Type: BLOOD SPECIMEN Ordering Facility: [facility] Address: [address] [address] Performed By: #### 3 016-3, 1987-08, 2156-09 #### [facility] CLIA [id number] [address] [place] [address] [place] Aspartate [Moles/Vol] 2 umol/L Normal 1-25 [facility] Comment on above: Order Comment: Speci men Type: BLOOD SPECIMEN Ordering Facility: [facility] Address: [address] Performed By: #### 3 016-3, 1987-08, 2156-09 #### [facility] CLIA [id number] [address] [place] [address] [place] Citrulline [Moles/Vol] 25 umol/L Normal 12-55 [facility] Comment on above: Order Comment: Speci men Type: BLOOD SPECIMEN Ordering Facility: [facility] Address: [address] Performed By: #### 3 016-3, 2156-09 #### [facility] CLIA [id number] [address] [place] [address] [place] Cystine [Moles/Vol] 33 umol/L Normal 5-82 [facility] Comment on above: Order Comment: Speci men Type: BLOOD SPECIMEN Ordering Facility: [facility] Address: [address] [place] [address] Performed By: #### 3 016-3, 1987-08, 2156-09 #### [facility] CLIA [id number] [address] [place] [address] [place] Glutamate [Moles/Vol] 31 umol/L Normal 10-131 [facility] Comment on above: Order Comment: Speci men Type: BLOOD SPECIMEN Ordering Facility: [facility] Address: [address] [place] [address] Performed By: #### 3 016-3, 2156-09 #### [facility] IA [id number] [address] [place] [address] [place] Glutamine [Moles/Vol] 652 umol/L Normal 205-756 [facility] Comment on above: Order Comment: Speci men Type: BLOOD SPECIMEN Ordering Facility: [facility] Address: [address] [place], [place] [address] Performed By: #### 3 016-3, 2156-09 #### [facility] CLIA [id number] [address] [place] [address] [place] Glycine [Moles/Vol] 351 umol/L Normal 151-490 [facility] Comment on above: Order Comment: Speci men Type: BLOOD SPECIMEN Ordering Facility: [facility] Address: [address] [place], [place] [address] Performed By: #### 3 016-3, 2156-09 #### [facility] CLIA [id number] [address] [place] [address] [place] Histidine [Moles/Vol] 82 umol/L Normal 72-124 [facility] Comment on above: Order Comment: Speci men Type: BLOOD SPECIMEN Ordering Facility: [facility] Address: [address] [place] [address] Performed By: #### 3 016-3, 1987-08, 2156-09 #### [facility] CLIA [id number] [address] [place] [address] [place] Hydroxylysine [Moles/Vol] <1 High <=0 [facility] Comment on above: Order Comment: Speci men Type: BLOOD SPECIMEN Ordering Facility: [facility] Address: [address] [address] Performed By: #### 3 016-3, 1987-08, 2156-09 #### [facility] IA [id number] [address] [place] [address] [place] Hydroxyproline [Moles/Vol] 9 umol/L Normal 0-53 [facility] Comment on above: Order Comment: Speci men Type: BLOOD SPECIMEN Ordering Facility: [facility] Address: [address] [place] [address] Performed By: #### 3 016-3, 1987-08, 2156-09 #### [facility] IA [id number] [address] [place] [address] [place] Isoleucine [Moles/Vol] 66 umol/L Normal 30-108 [facility] Comment on above: Order Comment: Speci men Type: BLOOD SPECIMEN Ordering Facility: [facility] Address: [address] [address] Performed By: #### 3 016-3, 1987-08, 2156-09 #### [facility] CLIA [id number] [address] [place] [address] [place] Leucine [Moles/Vol] 109 umol/L Normal 72-201 [facility] Comment on above: Order Comment: Speci men Type: BLOOD SPECIMEN Ordering Facility: [facility] Address: [address] [address] Performed By: #### 3 016-3, 2156-09 #### [facility] CLIA [id number] [address] [facility] [place] [address] [place] Lysine [Moles/Vol] 220 umol/L Normal 116-296 [facility] Comment on above: Order Comment: Speci men Type: BLOOD SPECIMEN Ordering Facility: [facility] Address: [address] [place] [address] Performed By: #### 3 016-3, 2156-09 #### [facility] CLIA [id number] [address] [place] [address] [place] Methionine [Moles/Vol] 20 umol/L Normal 10-42 [facility] Comment on above: Order Comment: Speci men Type: BLOOD SPECIMEN Ordering Facility: [facility] Address: [address] [place] [address] Performed By: #### 3 016-3, 2156-09 #### [facility] IA [id number] [address] [place] [address] [place] Ornithine [Moles/Vol] 64 umol/L Normal 48-195 [facility] Comment on above: Order Comment: Speci men Type: BLOOD SPECIMEN Ordering Facility: [facility] Address: [address] [place] [address] Performed By: #### 3 016-3, 1987-08, 2156-09 #### [facility] IA [id number] [address] [facility] [place] [address] [place] Phenylalanine [Moles/Vol] 42 umol/L Normal 35-85 [facility] Comment on above: Order Comment: Speci men Type: BLOOD SPECIMEN Ordering Facility: [facility] Address: [address] [place] [address] Performed By: #### 3 016-3, 1987-08, 2156-09 #### [facility] CLIA [id number] [address] [facility] [place] [address] [place] Proline [Moles/Vol] 187 umol/L Normal 97-329 [facility] Comment on above: Order Comment: Speci men Type: BLOOD SPECIMEN Ordering Facility: [facility] Address: [address] [address] Performed By: #### 3 016-3, 1987-08, 2156-09 #### [facility] CLIA [id number] [address] [place] [address] [place] Sarcosine [Moles/Vol] <1 High <=0 [facility] Comment on above: Order Comment: Speci men Type: BLOOD SPECIMEN Ordering Facility: [facility] Address: [address] [address] Performed By: #### 3 016-3, 1987-08, 2156-09 #### [facility] IA [id number] [address] [place] [address] [place] Serine [Moles/Vol] 107 umol/L Normal 58-181 [facility] Comment on above: Order Comment: Speci men Type: BLOOD SPECIMEN Ordering Facility: [facility] Address: [address] [place] [address] Performed By: #### 3 016-3, 1987-08, 2156-09 #### [facility] IA [id number] [address] [place] [address] [place] Taurine [Moles/Vol] 46 umol/L Low 54-210 [facility] Comment on above: Order Comment: Speci men Type: BLOOD SPECIMEN Ordering Facility: [facility] Address: [address] [address] Performed By: #### 3 016-3, 1987-08, 2156-09 #### [facility] CLIA [id number] [address] [place] [address] [place] Threonine [Moles/Vol] 147 umol/L Normal 60-225 [facility] Comment on above: Order Comment: Speci men Type: BLOOD SPECIMEN Ordering Facility: [facility] Address: [address] [address] Performed By: #### 3 016-3, 2156-09 #### [facility] IA [id number] [address] [facility] [place] [address] [place] Tyrosine [Moles/Vol] 51 umol/L Normal 34-112 [facility] Comment on above: Order Comment: Rl basliio Type: BLOOD SPECIMEN Ordering Facility: [facility] Address: [address] [place] [address] Performed By: #### 3 016-3, 2156-09 #### [facility] IA [id number] [address] [place] [address] [place] Valine [Moles/Vol] 199 umol/L Normal 119-336 [facility] Comment on above: Order Comment: [facility] Type: BLOOD SPECIMEN Ordering Facility: [facility] Address: [address] [place] [address] Performed By: #### 3 016-3, 2156-09 #### [facility] IA [id number] [address] [place] [address] [place] CARNITINE FREE/TOTAL, PLASMA on 10-17-2022 C0 [Moles/Vol] 27 umol/L Normal 22-54 [facility] Comment on above: Order Comment: Rl [facility] Type: BLOOD SPECIMEN Ordering Facility: [facility] Address: [address] [place] [address] Performed By: #### C ARNPL #### [facility] CLIA [id number] 9500 [facility] [id number] [place] C0/Total carnitine [Molar fraction] 0.675 Low 0.700-0.900 [facility] Comment on above: Order Comment: Rl basilio Type: BLOOD SPECIMEN Ordering Facility: [facility] Address: [address] [place] [address] Result Comment: NOTE : The determination of the plasma free carnitine level and of the total free and acylcarnitine levels is dependent on multiple factors, including the nutritional status of the subject, his/her underlying disorder, concurrent illnesses and, sometimes, medications that he/she is receiving. Consequently, a normal or minimally abnormal result with this test does not always rule-out the possibility of a disorder of carnitine or fatty acid metabolism. This test does not by itself provide information on the levels of various plasma acylcarnitine species and measurement of the latter is often needed for the diagnostic evaluation and follow-up of disorders of mitochondrial fatty acid beta-oxidation and some other disorders associated with pathologic levels of selected acylcarnitine species. This test was developed and its performance characteristics determined by the Pathology and Laboratory Medicine [place] at the [facility]. The U.S. Food and Drug Administration has not approved or cleared this test, however, FDA clearance or approval is not currently required for clinical use. Performed By: #### C ARNPL #### [facility] CLIA [id number] [address] [place] [address] [place] Carnitine [Moles/Vol] 40 umol/L Normal 27-68 [facility] Comment on above: Order Comment: [facility] Type: BLOOD SPECIMEN Ordering Facility: [facility] Address: [address] [place], [place] [address] Performed By: #### C ARNPL #### [facility] CLIA [id number] [address] [place] [address] [place] CK SerPl-cCncon 10-17-2022 CK [Catalytic activity/Vol] 50 U/L Normal 42-196 [facility] Comment on above: Order Comment: [facility] Type: BLOOD SPECIMEN Ordering Facility: [facility] Address: [address] [place], [place] [address] Performed By: #### 3 016-3, 1987-08, 2156-09 #### [facility] CLIA [id number] [address] [place] [address] [place] CRP SerPl-mCncon 10-17-2022 CRP [Mass/Vol] 0.6 mg/dL Normal <0.9 [facility] Comment on above: Order Comment: Rl basilio Type: BLOOD SPECIMEN Ordering Facility: [facility] Address: [address] [place], [place] [address] Performed By: #### 3 016-3, 2156-09 #### [facility] CLIA [id number] [address] [place] [address] [place] CYTOKINE PANEL 13, SERUMon 0 10-17-2022 INTERFERON GAMMA <4.2 Normal <=4.2 [facility] Comment on above: Order Comment: Speci men Type: BLOOD SPECIMEN Ordering Facility: [facility] Address: [address] [place] [address] Performed By: #### 3 016, 2156-09 #### [facility] CLIA [id number] [address] [place] [address] [place] INTERLEUKIN 1 BETA <6.5 Normal <=6.7 [facility] Comment on above: Order Comment: Speci men Type: BLOOD SPECIMEN Ordering Facility: [facility] Address: [address] [place] [address] Performed By: #### 3 , 2156-09 #### [facility] IA [id number] [address] [place] [address] [place] INTERLEUKIN 10 3.2 pg/mL High <=2.8 [facility] Comment on above: Order Comment: Speci men Type: BLOOD SPECIMEN Ordering Facility: [facility] Address: [address] [place] [address] Performed By: #### 3 , 2156-09 #### [facility] CLIA [id number] [address] [facility] [place] [address] [place] INTERLEUKIN 12 <1.9 Normal <=1.9 [facility] Comment on above: Order Comment: Speci men Type: BLOOD SPECIMEN Ordering Facility: [facility] Address: [address] [place] [address] Performed By: #### 3 0163, 2156-09 #### [facility] CLIA [id number] [address] [facility] [place] [address] [place] INTERLEUKIN 13 <1.7 Normal <=2.3 [facility] Comment on above: Order Comment: Speci men Type: BLOOD SPECIMEN Ordering Facility: [facility] Address: [address] [place] [address] Performed By: #### 3 016-3, 1987-08, 2156-09 #### [facility] CLIA [id number] [address] [place], [place] [address] [place] [address] [place] INTERLEUKIN 17 <1.4 Normal <=1.4 [facility] Comment on above: Order Comment: Speci men Type: BLOOD SPECIMEN Ordering Facility: [facility] Address: [address] [place] [address] Performed By: #### 3 , 1987-08, 2156-09 #### [facility] CLIA [id number] [place] INTERLEUKIN 2 <2.1 Normal <=2.1 [facility] Comment on above: Order Comment: Speci men Type: BLOOD SPECIMEN Ordering Facility: [facility] Address: [address] [place] [address] Performed By: #### 3 , 1987-08, 2156-09 #### [facility] CLIA [id number] [place] INTERLEUKIN 4 (INT4) <2.2 Normal <=2.2 [facility] Comment on above: Order Comment: Speci men Type: BLOOD SPECIMEN Ordering Facility: [facility] Address: [address] [place] [address] Performed By: #### 3 3, 1987-08, 2156-09 #### [facility] CLIA [id number] [address] OF [place] INTERLEUKIN 5 <2.1 Normal <=2.1 [facility] Comment on above: Order Comment: Speci men Type: BLOOD SPECIMEN Ordering Facility: [facility] Address: [address] [place] [address] Performed By: #### 3 016-, 2156-09 #### [facility] CLIA [id number] [address] [place] [address] [place] INTERLEUKIN 6 <2.0 Normal <=2.0 [facility] on above: Order Comment: Speci men Type: BLOOD SPECIMEN Ordering Facility: [facility] Address: [address] [place] [address] Performed By: #### 3 016-3, 2156-09 #### [facility] CLIA [id number] [address] [place], [place] [id number] [place] [address] [place] INTERLEUKIN 8 <3.0 Normal <=3.0 [facility] Comment on above: Order Comment: Speci men Type: BLOOD SPECIMEN Ordering Facility: [facility] Address: [address] [place] [address] Performed By: #### 3 0163, 2156-09 #### [facility] CLIA [id number] [place] [address] [place] INTERLEUKIN-2 RECEPTOR 355.4 pg/mL Normal 175.3-858.2 [facility] Comment on above: Order Comment: Speci men Type: BLOOD SPECIMEN Ordering Facility: [facility] Address: [address] [place] [address] Performed By: #### 3 0163, 2156-09 #### [facility] CLIA [id number] [place] [address] OF [place] TUMOR NECROSIS FACTOR - ALPHA 1.9 pg/mL Normal <=7.2 [facility] Comment on above: Order Comment: Speci men Type: BLOOD SPECIMEN Ordering Facility: [facility] Address: [address] [place] [address] Result Comment: INTE RPRETIVE INFORMATION: Cytokines Results are used to understand the pathophysiology of immune, infectious, or inflammatory disorders, or may be used for research purposes. This test was developed and its performance characteristics determined by [facility]. It has not been cleared or approved by the US Food and Drug Administration. This test was performed in a CLIA certified laboratory and is intended for clinical purposes. Performed By: [facility] [address] [place] [address] Home Health Registered Nurse: Terry Jacome MD, PhD Performed By: #### 3 016-3, 1987-08, 2156-09 #### [facility] CLIA [id number] [facility] [place] [address] [place] ESR Westergren method (Bld) [Velocity]on 10-17-2022 ESR (Bld) [Velocity] 5 mm/h Normal 0-20 [facility] Comment on above: Order Comment: Speci men Type: BLOOD SPECIMEN Ordering Facility: [facility] Address: [address] [address] Performed By: #### 4 537-7 #### [facility] CLIA [id number] [address] [facility] [address] [place] [address] [place] ESTROGEN FRACTION BLon 10-17 ESTRADIOL 238.7 pg/mL Normal [facility] Comment on above: Order Comment: Speci men Type: BLOOD SPECIMEN Ordering Facility: [facility] Address: [address] [address] Result Comment: REFE RENCE INTERVAL: Estradiol by Glass Or Mirror Inspector For a complete set of all established reference intervals, refer to [employer]/Tests/Pub/[id number]. This test was developed and its performance characteristics determined by [facility]. It has not been cleared or approved by the US Food and Drug Administration. This test was performed in a CLIA certified laboratory and is intended for clinical purposes. Performed By: #### 3 016-3, 1987-08, 2156-09 #### [facility] CLIA [id number] [facility] [place] [address] [place] ESTROGENS TOTAL 354.8 pg/mL Normal [facility] Comment on above: Order Comment: Speci men Type: BLOOD SPECIMEN Ordering Facility: [facility] Address: [address] [address] Result Comment: Refe rence interval of estrogens (pg/mL) Estrone Estradiol Total Estrogens Early follicular <150.0 30.0-100.0 30.0-250.0 Late follicular 100.0-250.0 100.0-400.0 200.0-650.0 Luteal <200.0 50.0-150.0 50.0-350.0 Post-menopausal 3.0-32.0 2.0-21.0 5.0-52.0 REFERENCE INTERVAL: Estrogens Total Calculation For a complete set of all established reference intervals, refer to [employer]/Tests/Pub/[id number]. Performed By: [facility] [address] [place] [id number] Home Health Registered Nurse: Terry Jacome MD, PhD Performed By: #### 3 016-3, 1987-08, 2156-09 #### [facility] CLIA [id number] [address] [place] [address] [place] ESTRONE 116.1 pg/mL Normal [facility] Comment on above: Order Comment: Speci men Type: BLOOD SPECIMEN Ordering Facility: [facility] Address: [address] [place] [address] Result Comment: INTERPRETIVE INFORMATION: Estrone by Glass Or Mirror Inspector For a complete set of all established reference intervals, refer to [employer]ive/Tests/Pub/[id number]. This test was developed and its performance characteristics determined by [facility]. It has not been cleared or approved by the [place] Food and Drug Administration. This test was performed in a CLIA certified laboratory and is intended for clinical purposes. Performed By: #### 3 016-3, 1987-08, 2156-09 #### [facility] CLIA [id number] [address] [place] [address] [place] GAD65 Ab Ser-aCncon 10-18-19 23 Glutamate decarboxylase 65 Ab Qn (S) <5.0 Normal <=5.0 [facility] Comment on above: Order Comment: Speci men Type: BLOOD SPECIMEN Ordering Facility: [facility] Address: [address] [place] [address] Result Comment: Anti -glutamic acid decarboxylase antibody (GAD65) test usually in conjunction with another test such as IA-2 antibody is used as an aid in establishing the autoimmune nature of previously-diagnosed type I diabetes mellitus or in predicting of progression to type I diabetes mellitus in patients with certain autoimmune diseases including autoimmune gastritis among others. It is also used as an aid in diagnosis of stiff person syndrome and certain autoimmune nervous system diseases. Clinical correlation is required. Performed By: #### 3 -3, 2156-09 #### [facility] CLIA [id number] [address] [place], [place] [id number] [place] [address] OF [place] Glutamate decarboxylase 65 A b Qn (S)on 10-17-2022 GLUTAMIC ACID DECARBOXYLAS AB QUALITATIVE Negative Normal Negative [facility] Comment on above: Order Comment: Speci [facility] Type: BLOOD SPECIMEN Ordering Facility: [facility] Address: [address] [place] [address] Performed By: #### 3 -3, 2156-09 #### [facility] IA [id number] [address] OF [place] HbA1c (Bld)on 10-17-2022 Average glucose Estimated from glycated hemoglobin (Bld) [Mass/Vol] 88 mg/dL Normal [facility] Comment on above: Order Comment: Rl [facility] Type: BLOOD SPECIMEN Ordering Facility: [facility] Address: [address] [place] [address] Result Comment: eAG: (Estimated average glucose) is a calculated value from HgbA1c and is patient intake representative of the average blood glucose level in the last 2-3 month period. Performed By: #### 3 3, 2156-09 #### [facility] CLIA [id number] OF [facility] HbA1c (Bld) [Mass fraction] 4.7 % Normal 4.3-5.6 [facility] Comment on above: Order Comment: [facility] Type: BLOOD SPECIMEN Ordering Facility: [facility] Address: [address] [address] Result Comment: Amer [place] Diabetes Association guidelines indicate that patients with HgbA1c in the range 5.7-6.4% are at increased risk for development of diabetes, and intervention by lifestyle modification may be beneficial. HgbA1c greater or equal to 6.5% is considered diagnostic of diabetes. Performed By: #### 3 016-3, 1987-08, 2156-09 #### [facility] CLIA [id number] [address] [place] [address] [place] IgA SerPl-mCncon 10-17-2022 IgA [Mass/Vol] 169 mg/dL Normal 70-400 [facility] Comment on above: Order Comment: Speci men Type: BLOOD SPECIMEN Ordering Facility: [facility] Address: [address] [place] [address] Performed By: #### 3 016-3, 1987-08, 2156-09 #### [facility] CLIA [id number] [address] [place] [address] [place] IgG SerPl-mCncon 10-17-2022 IgG [Mass/Vol] 932 mg/dL Normal 700-1600 [facility] Comment on above: Order Comment: Speci men Type: BLOOD SPECIMEN Ordering Facility: [facility] Address: [address] [place] [address] Performed By: #### 3 016-3, 1987-08, 2156-09 #### [facility] CLIA [id number] [address] [place] [address] [place] IgM SerPl-mCncon 10-17-2022 IgM [Mass/Vol] 199 mg/dL Normal 40-230 [facility] Comment on above: Order Comment: Speci men Type: BLOOD SPECIMEN Ordering Facility: [facility] Address: [address] [place] [address] Performed By: #### 3 016-3, 1987-08, 2156-09 #### [facility] CLIA [id number] [address] [place] [address] [place] LDH SerPl-cCncon 10-17-2022 LDH [Catalytic activity/Vol] 160 U/L Normal 135-214 [facility] Comment on above: Order Comment: Speci men Type: BLOOD SPECIMEN Ordering Facility: [facility] Address: [address] [place] [address] Performed By: #### 3 016-3, 1987-08, 2156-6 #### [facility] CLIA [id number] [address] [place] [address] [place] ORGANIC ACIDS UR, QUANT W/CO NSULTon 10-17-2022 2-Hydroxyglutarate/C reatinine (U) [Molar ratio] 3.6 umol/mmolCr Normal 0.6-17.7 [facility] Comment on above: Order Comment: Speci men Type: URINE SPECIMEN Ordering Facility: [facility] Address: [address] Performed By: #### L [id number] #### [facility] CLIA [id number] [address] [place] [address] [place] 2-Hydroxyisovalerate /Creatinine (U) [Molar ratio] <0.1 Normal 0.0-0.1 [facility] Comment on above: Order Comment: Speci men Type: URINE SPECIMEN Ordering Facility: [facility] Address: [address] Performed By: #### L [id number] #### [facility] CLIA [id number] [address] [place] [address] [place] 6-Pkmnww-5-hydroxybu tyrate (C5-OH)/Creatinine (U) [Molar ratio] <0.6 Normal 0.0-1.3 [facility] Comment on above: Order Comment: Speci men Type: URINE SPECIMEN Ordering Facility: [facility] Address: [address] [place] [address] Performed By: #### L [id number] #### [facility] [place] [id number] [address] [place] [address] [place] 2-Methylbutyrylglyci ne/Creatinine (U) [Molar ratio] 0.4 umol/mmolCr Normal 0.0-0.4 [facility] Comment on above: Order Comment: Speci men Type: URINE SPECIMEN Ordering Facility: [facility] Address: [address] Performed By: #### L [id number] #### [facility] IA [id number] [address] 2-Methylcitrate/Crea tinine (U) [Molar ratio] 1.8 umol/mmolCr Normal 1.0-13.9 [facility] Comment on above: Order Comment: Speci men Type: URINE SPECIMEN Ordering Facility: [facility] Address: [address] [place] [address] Performed By: #### L [id number] #### [facility] [place] [id number] [address] [place] [address] [place] 2-Oxoadipate/Creatin ine (U) [Molar ratio] <1.6 Normal 0.0-3.3 [facility] Comment on above: Order Comment: Speci men Type: URINE SPECIMEN Ordering Facility: [facility] Address: [address] [place] [address] Performed By: #### L [id number] #### [facility] IA [id number] [address] [place] [address] 3-Hydroxyglutarate/C reatinine (U) [Molar ratio] 0.0 umol/mmolCr Normal 0.0-0.7 [facility] Comment on above: Order Comment: Speci men Type: URINE SPECIMEN Ordering Facility: [facility] Address: [address] [place] [address] Performed By: #### L [id number] #### [facility] CLIA [id number] [address] [place] 3-Hydroxyisovalerate /Creatinine (U) [Molar ratio] 5.0 umol/mmolCr Normal 2.1-27.3 [facility] Comment on above: Order Comment: Speci men Type: URINE SPECIMEN Ordering Facility: [facility] Address: [address] [place] Performed By: #### L [id number] #### [facility] CLIA [id number] [address] [place] 3-Methylcrotonylglyc ine/Creatinine (U) [Molar ratio] <0.3 Normal <0.3 [facility] Comment on above: Order Comment: Speci men Type: URINE SPECIMEN Ordering Facility: [facility] Address: [address] [address] Performed By: #### L [id number] #### [facility] IA [id number] [address] [place] [address] [place] 3-Methylglutaconate/ Creatinine (U) [Molar ratio] 0.7 umol/mmolCr Normal 0.0-2.0 [facility] Comment on above: Order Comment: Speci men Type: URINE SPECIMEN Ordering Facility: [facility] Address: [address] [address] Performed By: #### L [id number] #### [facility] IA [id number] [address] [place] [address] [place] 3-Methylglutarate/Cr eatinine (U) [Molar ratio] 0.5 umol/mmolCr Normal 0.0-0.6 [facility] Comment on above: Order Comment: Speci men Type: URINE SPECIMEN Ordering Facility: [facility] Address: [address] Performed By: #### L [id number] #### [facility] [place] [id number] [address] [place] [address] [place] 4-Hydroxyphenylaceta te/Creatinine (U) [Molar ratio] 149.0 umol/mmolCr High 5.7-147.5 [facility] Comment on above: Order Comment: Speci men Type: URINE SPECIMEN Ordering Facility: [facility] Address: [address] Performed By: #### L [id number] #### [facility] CLIA [id number] [address] [place] [address] [place] 4-Hydroxyphenyllacta te/Creatinine (U) [Molar ratio] 4.3 umol/mmolCr Normal 1.3-23.0 [facility] Comment on above: Order Comment: Speci men Type: URINE SPECIMEN Ordering Facility: [facility] Address: [address] Performed By: #### L [id number] #### [facility] CLIA [id number] [address] [place] [address] [place] 4-Hydroxyphenylpyruv ate/Creatinine (U) [Molar ratio] 0.0 umol/mmolCr Normal <=0.0 [facility] Comment on above: Order Comment: Speci men Type: URINE SPECIMEN Ordering Facility: [facility] Address: [address] [place], [place] [address] Performed By: #### L [id number] #### [facility] CLIA [id number] [address] [place] [address] [place] 5-Oxoproline/Creatin ine (U) [Molar ratio] 1.9 umol/mmolCr Normal 0.4-3.1 [facility] Comment on above: Order Comment: Speci men Type: URINE SPECIMEN Ordering Facility: [facility] Address: [address] Performed By: #### L [id number] #### [facility] CLIA [id number] [address] [place] [address] [place] Acetoacetate/Creatin ine (U) [Molar ratio] <0.9 High 0.0-0.5 [facility] Comment on above: Order Comment: Speci men Type: URINE SPECIMEN Ordering Facility: [facility] Address: [address] [place], [place] [address] Performed By: #### L [id number] #### [facility] CLIA [id number] [address] [place] [address] [place] Aconitate/Creatinine (U) [Molar ratio] 14.8 umol/mmolCr Normal 8.5-109.6 [facility] Comment on above: Order Comment: Speci men Type: URINE SPECIMEN Ordering Facility: [facility] Address: [address] [place], [place] [address] Performed By: #### L [id number] #### [facility] CLIA [id number] [address] [place] [address] Adipate/Creatinine (U) [Molar ratio] 3.0 umol/mmolCr Normal 0.3-9.2 [facility] Comment on above: Order Comment: Speci men Type: URINE SPECIMEN Ordering Facility: [facility] Address: [address] [place] [address] Performed By: #### L [id number] #### [facility] CLIA [id number] [address] [place] [address] Alpha hydroxybutyrate/Crea tinine (U) [Molar ratio] <1.0 Normal 0.0-2.7 [facility] Comment on above: Order Comment: Speci men Type: URINE SPECIMEN Ordering Facility: [facility] Address: [address] [place], [place] [address] Performed By: #### L [id number] #### [facility] CLIA [id number] [address] [place] [address] Alpha ketoglutarate/Creati nine (U) [Molar ratio] 4.9 umol/mmolCr Normal 0.2-42.7 [facility] Comment on above: Order Comment: Speci men Type: URINE SPECIMEN Ordering Facility: [facility] Address: [address] [place], [place] [address] Performed By: #### L [id number] #### [facility] CLIA [id number] [address] [place] Benzoate/Creatinine (U) [Molar ratio] <12.2 Normal 0.0-14.6 [facility] Comment on above: Order Comment: Speci men Type: URINE SPECIMEN Ordering Facility: [facility] Address: [address] [place] [address] Performed By: #### L [id number] #### [facility] CLIA [id number] [address] [place] [address] [place] Beta hydroxybutyrate/Crea tinine (U) [Molar ratio] <1.6 Normal 0.1-2.6 [facility] Comment on above: Order Comment: Speci men Type: URINE SPECIMEN Ordering Facility: [facility] Address: [address] Performed By: #### L [id number] #### [facility] CLIA [id number] [address] [place] [address] [place] Butyrylglycine/Creat inine (U) [Molar ratio] 0.0 umol/mmolCr Normal 0.0-0.7 [facility] Comment on above: Order Comment: Speci men Type: URINE SPECIMEN Ordering Facility: [facility] Address: [address] [place], [place] [address] Performed By: #### L [id number] #### [facility] CLIA [id number] [address] [place] [address] [place] Creatinine (U) [Mass/Vol] 53.5 mg/dL Normal 42.2-237.9 [facility] Comment on above: Order Comment: Speci men Type: URINE SPECIMEN Ordering Facility: [facility] Address: [address] [place] [address] Performed By: #### L [id number] #### [facility] CLIA [id number] [address] [place] [address] [place] Ethylmalonate/Creati nine (U) [Molar ratio] 1.2 umol/mmolCr Normal 0.5-6.2 [facility] Comment on above: Order Comment: Speci men Type: URINE SPECIMEN Ordering Facility: [facility] Address: [address] [place] [address] Performed By: #### L [id number] #### [facility] IA [id number] [address] [place] [address] [place] Fumarate/Creatinine (U) [Molar ratio] 0.9 umol/mmolCr Normal 0.3-2.6 [facility] Comment on above: Order Comment: Speci men Type: URINE SPECIMEN Ordering Facility: [facility] Address: [address] [place] [address] Performed By: #### L [id number] #### [facility] IA [id number] [address] [place] [address] [place] Glutarate/Creatinine (U) [Molar ratio] 0.1 umol/mmolCr Normal 0.0-1.4 [facility] Comment on above: Order Comment: Speci men Type: URINE SPECIMEN Ordering Facility: [facility] Address: [address] [place] [address] Performed By: #### L [id number] #### [facility] IA [id number] [address] [place] [address] [place] Hexanoylglycine/Crea tinine (U) [Molar ratio] 0.1 umol/mmolCr Normal 0.0-0.1 [facility] Comment on above: Order Comment: Speci men Type: URINE SPECIMEN Ordering Facility: [facility] Address: [address] [place] [address] Performed By: #### L [id number] #### [facility] CLIA [id number] [address] [place] [address] [place] Isobutyrylglycine/Cr eatinine (U) [Molar ratio] 0.6 umol/mmolCr Normal 0.0-1.2 [facility] Comment on above: Order Comment: Speci men Type: URINE SPECIMEN Ordering Facility: [facility] Address: [address] [place] [address] Performed By: #### L [id number] #### [facility] CLIA [id number] [address] [place] [address] [place] Isocitrate/Creatinin e (U) [Molar ratio] 48.3 umol/mmolCr Normal 9.1-271.9 [facility] Comment on above: Order Comment: Speci men Type: URINE SPECIMEN Ordering Facility: [facility] Address: [address] [place], [place] [address] Performed By: #### L [id number] #### [facility] CLIA [id number] [address] [place] [address] [place] Lactate/Creatinine (U) [Molar ratio] 9.8 umol/mmolCr Normal 2.9-47.2 [facility] Comment on above: Order Comment: Speci men Type: URINE SPECIMEN Ordering Facility: [facility] Address: [address] [place], [place] [address] Performed By: #### L [id number] #### [facility] CLIA [id number] [address] [place] [address] [place] Malate/Creatinine (U) [Molar ratio] 0.3 umol/mmolCr Normal 0.0-1.1 [facility] Comment on above: Order Comment: Speci men Type: URINE SPECIMEN Ordering Facility: [facility] Address: [address] [place], [place] [address] Performed By: #### L [id number] #### [facility] CLIA [id number] [address] [place] [address] [place] Malonate/Creatinine (U) [Molar ratio] 0.0 umol/mmolCr Normal 0.0-0.1 [facility] Comment on above: Order Comment: Speci men Type: URINE SPECIMEN Ordering Facility: [facility] Address: [address] Performed By: #### L [id number] #### [facility] CLIA [id number] [address] [place] [address] [place] Methylmalonate/Creat inine (U) [Molar ratio] <0.4 Normal 0.0-0.6 [facility] Comment on above: Order Comment: Speci men Type: URINE SPECIMEN Ordering Facility: [facility] Address: [address] Performed By: #### L [id number] #### [facility] CLIA [id number] [address] [place] [address] [place] Methylsuccinate/Crea tinine (U) [Molar ratio] 0.2 umol/mmolCr Normal 0.0-1.4 [facility] Comment on above: Order Comment: Speci men Type: URINE SPECIMEN Ordering Facility: [facility] Address: [address] Performed By: #### L [id number] #### [facility] CLIA [id number] [address] [place] [address] [place] N-acetylaspartate/Cr eatinine (U) [Molar ratio] 1.6 umol/mmolCr Normal 0.1-8.9 [facility] Comment on above: Order Comment: Speci men Type: URINE SPECIMEN Ordering Facility: [facility] Address: [address] Performed By: #### L [id number] #### [facility] CLIA [id number] [address] [place] [address] [place] N-acetyltyrosine/Cre atinine (U) [Molar ratio] <0.2 Normal 0.0-1.2 [facility] Comment on above: Order Comment: Speci men Type: URINE SPECIMEN Ordering Facility: [facility] Address: [address] Performed By: #### L [id number] #### [facility] CLIA [id number] [facility] [place] [address] [place] Oxalate/Creatinine (U) [Molar ratio] <1.0 Normal 0.7-12.4 [facility] Comment on above: Order Comment: Speci men Type: URINE SPECIMEN Ordering Facility: [facility] Address: [address] Performed By: #### L [id number] #### [facility] CLIA [id number] [address] [place] [address] [place] Pyruvate/Creatinine (U) [Molar ratio] <0.2 Normal 0.1-2.6 [facility] Comment on above: Order Comment: Speci men Type: URINE SPECIMEN Ordering Facility: [facility] Address: [address] Performed By: #### L [id number] #### [facility] CLIA [id number] [address] [place] [address] [place] Sebacate (C8)/Creatinine (U) [Molar ratio] 0.0 umol/mmolCr Normal [facility] Comment on above: Order Comment: Speci men Type: URINE SPECIMEN Ordering Facility: [facility] Address: [address] Performed By: #### L [id number] #### [facility] CLIA [id number] [address] [place] [address] [place] Suberate/Creatinine (U) [Molar ratio] 2.5 umol/mmolCr Normal 0.0-7.4 [facility] Comment on above: Order Comment: Speci men Type: URINE SPECIMEN Ordering Facility: [facility] Address: [address] Performed By: #### L [id number] #### [facility] CLIA [id number] [address] [place] [address] [place] Suberylglycine/Creat inine (U) [Molar ratio] 0.0 umol/mmolCr Normal <=0.0 [facility] Comment on above: Order Comment: Speci men Type: URINE SPECIMEN Ordering Facility: [facility] Address: [address] [address] Performed By: #### L [id number] #### [facility] CLIA [id number] [address] [place] [address] Succinate/Creatinine (U) [Molar ratio] 1.8 umol/mmolCr Normal 0.3-27.4 [facility] Comment on above: Order Comment: Speci men Type: URINE SPECIMEN Ordering Facility: [facility] Address: [address] [address] Performed By: #### L [id number] #### [facility] CLIA [id number] [address] [place] [address] Succinylacetone/Crea tinine (U) [Molar ratio] <0.4 Normal <0.4 [facility] Comment on above: Order Comment: Speci men Type: URINE SPECIMEN Ordering Facility: [facility] Address: [address] [address] Performed By: #### L [id number] #### [facility] CLIA [id number] [address] [place] [address] [place] UOA CONSULTATION Normal [facility] Comment on above: Order Comment: Speci men Type: URINE SPECIMEN Ordering Facility: [facility] Address: [address] [place] [address] Result Comment: This urine organic acid analysis shows no significant abnormalities. NOTE: The biochemical expression of urinary organic acids in the genetic organic acidurias can be dependent on the nutritional status of the subject, the underlying genetic abnormality that he/she may have, concurrent illnesses and other factors. This is also true for other disorders for which urinary organic acid analysis is sometimes a diagnostic tool such as disorders of mitochondrial oxidative phosphorylation, disorders of mitochondrial fatty acid beta-oxidation, and some nutritional deficiencies. Consequently and unless otherwise stated, a normal or non-diagnostic test result on urinary organic acid analysis does not always rule-out the possibility of the types of disorders noted above. This test was developed and its performance characteristics determined by the [facility]. It has not been cleared or approved by the [place] Food and Drug Administration. The FDA had determined that such clearance or approval is not necessary. Performed By: #### L [id number] #### [facility] CLIA [id number] [address] [place] [address] UOA REVIEW Reviewed by Patrick Proctor MD, Ph.D ([id number]) [facility] Comment on above: Order Comment: Speci men Type: URINE SPECIMEN Ordering Facility: [facility] Address: [address] [place] [address] Performed By: #### L [id number] #### [facility] CLIA [id number] [address] [place] [address] Uracil/Creatinine (U) [Molar ratio] 0.9 umol/mmolCr Normal 0.0-5.1 [facility] Comment on above: Order Comment: Speci men Type: URINE SPECIMEN Ordering Facility: [facility] Address: [address] [place] [address] Performed By: #### L [id number] #### [facility] CLIA [id number] [address] [place] [address] PYRUVATE+LACTATE BLon 2022 Lactate [Moles/Vol] 1.2 mmol/L Normal 0.5-2.2 [facility] Comment on above: Order Comment: Speci men Type: BLOOD SPECIMEN Ordering Facility: [facility] Address: [address] [place] [address] Result Comment: This test was developed and its performance characteristics determined by [facility] [place] ([facility]). It has not been cleared or approved by the FDA. [facility] is regulated under CLIA as qualified to perform high-complexity testing. This test is used for clinical purposes. It should not be regarded as investigational or for research. Performed By: #### L ACPYR #### [facility] CLIA [id number] [address] [place] [address] [place] Pyruvate (Bld) [Moles/Vol] 0.04 mmol/L Normal 0.03-0.10 [facility] Comment on above: Order Comment: Rl basilio Type: BLOOD SPECIMEN Ordering Facility: [facility] Address: [address] [id number] Result Comment: This test was developed and its performance characteristics determined by [facility] [place] ([facility]). It has not been cleared or approved by the FDA. -[facility] is regulated under CLIA as qualified to perform high-complexity testing. This test is used for clinical purposes. It should not be regarded as investigational or for research. Performed By: #### L ACPYR #### [facility] CLIA [id number] [address] [facility] [address] [place] T4 Free SerPl-mCncon 023 Free T4 [Mass/Vol] 1.3 ng/dL Normal 0.9-1.7 [facility] Comment on above: Order Comment: Rl basilio Type: BLOOD SPECIMEN Ordering Facility: [facility] Address: [address] [place], [place] [address] Performed By: #### 3 016-3, 1987-, 2156-09 #### [facility] CLIA [id number] [address] [place] [address] [place] TSH SerPl-aCncon 10-17-2022 TSH Qn 2.050 m[IU]/L Normal 0.270-4.200 [facility] Comment on above: Order Comment: Rl basilio Type: BLOOD SPECIMEN Ordering Facility: [facility] Address: [address] [place], [place] [address] Result Comment: If t he patient is , TSH reference range varies by gestational period: First Trimester (weeks 9-12): 0.180-2.990 mIU/L Second Trimester: 0.110-3.980 mIU/L Third Trimester: 0.480-4.710 mIU/L Olman Rodriguez et al. A Practical Approach for the Verifications and Determination of Site- and Trimester-Specific Reference Intervals for Thyroid Function tests in . Thyroid, 2019:29:3:412-420. Reji E, et al. 2017 Guidelines of the [employer] for the Diagnosis and Management of Thyroid Disease during and the . Thyroid, 2017:27:3:315-389. Performed By: #### 3 -3, 1987-08, 2156-09 #### [facility] CLIA [id number] [place] [address] [place] VOLTAGE GATED CA IGGon 10-17 P/Q-TYPE CALCIUM CHANNEL ANTIBODY 10.1 pmol/L Normal 0.0-24.5 [facility] Comment on above: Order Comment: Rl basilio Type: BLOOD SPECIMEN Ordering Facility: [facility] Address: [address] [place] [address] Result Comment: INTE RPRETIVE INFORMATION: P/Q-Type Calcium Channel Antibody 0.0 to 24.5 pmol/L ............. Negative 24.6 to 45.6 pmol/L ............ Indeterminate 45.7 pmol/L or greater.......... Positive This test was developed and its performance characteristics determined by [facility]. It has not been cleared or approved by the US Food and Drug Administration. This test was performed in a CLIA certified laboratory and is intended for clinical purposes. Performed By: [facility] [address] [place] [id number] Home Health Registered Nurse: Terry Jacome MD, PhD Performed By: #### 3 -3, 1987-08, 2156-09 #### [facility] CLIA [id number] [place] [address] [place] VOLTAGE-GATED POTASSIUM VARGAS ABon 10-17-2022 VOLTAGE-GATED POTASSIUM CHANNEL AB, SER 0 pmol/L Normal 0-31 [facility] Comment on above: Order Comment: Rl basilio Type: BLOOD SPECIMEN Ordering Facility: [facility] Address: [address] [place] [address] Result Comment: INTE RPRETIVE INFORMATION: Voltage-Gated Potassium Channel (VGKC) Antibody, Serum Negative ....... 31 pmol/L or less Indeterminate... 32 - 87 pmol/L Positive ....... 88 pmol/L or greater Voltage-Gated Potassium Channel (VGKC) antibodies are associated with neuromuscular weakness as found in neuromyotonia (also known as Issacs syndrome) and Morvan syndrome. VGKC antibodies are also associated with paraneoplastic neurological syndromes and limbic encephalitis; however, VGKC antibody-associated limbic encephalitis may be associated with antibodies to leucine-rich, glioma-inactivated 1 protein (LGI1) or contactin-associated protein-2 (CASPR2) instead of potassium channel antigens. A substantial number of VGKC-antibody positive cases are negative for LGI1 and CASPR2 IgG autoantibodies, not all VGKC complex antigens are known. The clinical significance of this test can only be determined in conjunction with the patient's clinical history and related laboratory testing. This test was developed and its performance characteristics determined by [facility]. It has not been cleared or approved by the US Food and Drug Administration. This test was performed in a CLIA certified laboratory and is intended for clinical purposes. Performed By: [facility] [address] [place] [id number] Home Health Registered Nurse: Terry Jacome MD, PhD Performed By: #### 3 016-3, 1987-, 21576 #### [facility] CLIA [id number] [facility] [place] [address] [place] NM GASTRIC EMPTYING SOLIDon 09-12-2022 NM GASTRIC EMPTYING SOLID * * *Final Report* * * DATE OF EXAM: Sep 12 2022 2:44PM [facility] 0017 - NM GASTRIC EMPTYING SOLID / PROCEDURE REASON: Nausea * * * * Physician Interpretation * * * * SOLID MEAL GASTRIC EMPTYING STUDY: CLINICAL HISTORY: Nausea To assess for abnormal gastric emptying of a solid meal. TECHNIQUE: 1.1 mCi Tc-99m sulfur colloid was given orally in a meal consisting of 4 oz Egg Beaters, 2 pieces toast, Jelly and 8 oz water, consumed over 5 to 10 minutes. 1-minute posterior and anterior spot images of the stomach region at times 0, 1, 2, and 4 hours RESULT: Solid study demonstrates 89% retention at 1hr, 76% retention at 2hr, and 38% retention at 4hr (normal emptying is 37-90% retention at 1hr, 30-60% retention at 2hr, and 0-10% retention at 4hr). There is no evidence of accelerated emptying of gastric contents, with 89% retention at 1hr (rapid emptying is <30% retention at 1hr). IMPRESSION: EVIDENCE OF DELAYED RATE OF GASTRIC EMPTYING OF SOLID MEAL. ABNORMAL STUDY: 36-50% RETENTION AT 4 HOURS IS CONSISTENT WITH SEVERE GASTROPARESIS. [employer] Access[employer]: [facility] Transcribe Date/Time: Sep 12 2022 3:02P Dictated by : LUZ MARINA VÁZQUEZ MD This examination was interpreted and the report reviewed and electronically signed by: LUZ MARINA VÁZQUEZ MD on Sep 12 2022 3:05PM EST [id number] Normal [facility] 09-09-2022 CNPN Telephone (AVXRIL) BELGICA HARPER ([id number]) 1990 F Date Time Provider Department 09/09/22 DIEGO RICKS AVXRIL During your visit today, we recorded the following information about you: Allergies As of Date: 09/09/2022 Noted Allergy Reaction IV CONTRAST (IODINE) 04/11/2019 7 - Swelling 9 - Itching Comments: Omnipaque 300: Patient experienced itching on her neck and left side of her face. Also, pt complained of tongue feeling itchy and feels like something is stuck in her throat . Patient received diphenhydramine (Benadryl) OMNIPAQUE (IOHEXOL) 04/12/2019 9 - Itching Date Reviewed: 08/31/2022 Reviewed by: Wilma Limon RN - Fully Assessed Reason for Visit: Future Appointment [256] Cmt: Spoke with patient regarding instructions for the study. Prescriptions as of 09/09/2022 - rifabutin (MYCOBUTIN) 150 mg capsule Take 2 capsules by mouth once daily for 14 days. - pantoprazole DR (PROTONIX) 40 mg tablet Take 1 tablet by mouth twice daily before meals for 14 days. - amoxicillin (AMOXIL) 250 mg capsule Take 3 capsules by mouth three times daily for 14 days. - lisdexamfetamine (VYVANSE) 10 mg capsule Take 10 mg by mouth once daily. - pantoprazole DR (PROTONIX) 40 mg tablet Take 1 tablet by mouth once daily. - baclofen (LIORESAL) 10 mg tablet - buPROPion SR (ZYBAN SR; WELLBUTRIN SR) 150 mg 12 hr tablet - doxepin HCl (DOXEPIN ORAL) - PREMARIN vaginal cream - TRELEGY ELLIPTA 100-62.5-25 mcg inhalation powder - methylphenidate LA (RITALIN LA) 20 mg 24 hr capsule TAKE 1 CAPSULE BY MOUTH EVERY DAY IN THE MORNING FOR 30 DAYS - cariprazine (VRAYLAR) 4.5 mg capsule 1 capsule. - ALPRAZolam (XANAX) 0.25 mg tablet Take 0.25 mg by mouth twice daily. - SPRINTEC 0.25-35 mg-mcg per tablet - ondansetron orally disintegrating (ZOFRAN ODT) 8 mg disintegrating tablet DISSOLVE 1 TABLET ON THE TONGUE 3 TIMES A DAY NEEDED - cariprazine (VRAYLAR) 3 mg cap Take by mouth once daily. Facility-Administered Medications as of 09/09/2022 - lidocaine (PF) 10 mg/mL (1 %) 1-2 mg injection (XYLOCAINE) - NaCl 0.9% iv infusion Problem List As Of Date: 09/09/2022 (None) Encounter Status:Closed by DIEGO RICKS on 09/09/22 Normal [facility] CITRATE URINE 24HRon 07-11-2 023 Citric Acid, U, 24hr 472 mg/24 hr Normal 320-1240 Th [facility] Comment on above: Result Comment: This test was developed and its performance characteristics determined by [employer]. It has not been cleared or approved by the Food and Drug Administration. Performed By: #### A [facility] #### [facility] [address] [address] [address] Li Nagel Citric Acid, Urine 472 mg/L Normal Undefined [facility] Comment on above: Performed By: #### A LPHN #### [facility] [address] [place], [place] [address] Dr. Li Nagel OXALATE 24HR URINEon 07-11-2 023 Oxalates, Urine 19 mg/L Normal Undefined [facility] Comment on above: Performed By: #### O X24HR #### [facility] [address] [place] [address] Dr. Li Nagel Oxalates, Urine 24hr 19 mg/24 hr Normal 4-31 [facility] Comment on above: Performed By: #### O X24HR #### [facility] [address] [place] [address] Dr. Li Nagel MAGNESIUM 24HR URINEon 07-09 Magnesium 24hr Urine 45.0 mg/24 hr Normal 12.0-293.0 [facility] Comment on above: Performed By: #### I MMUN G #### [facility] [address] [place] [address] Dr. Li Nagel Magnesium UR 4.5 mg/dL Normal Not Estab. [facility] Comment on above: Performed By: #### I MMUN G #### [facility] [address] [place] [address] Dr. Li Nagel PHOSPHORUS 24HR URINEon 06-22 Phosphorus, Urine 51.4 mg/dL Normal Not Estab. The [facility] Comment on above: Performed By: #### P HOS 24 #### [facility] [address] [place] [address] Dr. Li Nagel Phosphorus, Urine 24hr 514 mg/24 hr Normal 261-1078 [facility] Comment on above: Performed By: #### P HOS 24 #### [facility] [address] [place] [address] Dr. Li Nagel URIC ACID 24 HR URINEon 06-22 Uric Acid, Urine 64.0 mg/dL Normal Not Estab. The [facility] Comment on above: Performed By: #### A LPHPHN #### [facility] [address] [address] [address] Li Nagel Uric Acid, Urine 24hr 640.0 mg/24 hr Normal 173.7-902.1 [facility] Comment on above: Performed By: #### A LPHPHN #### [facility] [address] [place] [address] Dr. Li Nagel CALCIUM 24 HR URINEon 2022 CALC, 24 HR UR 155.0 mg/24 hr Normal 100.0-300.0 [facility] Comment on above: Performed By: #### I MMUN G #### [facility] [address] [place] [address] Dr. Li Nagel UR CALCIUM 15.5 mg/dL Normal 5.1-21.0 [facility] Comment on above: Performed By: #### I MMUN G #### [facility] [address] [place] [address] Dr. Li Nagel UR TOT VOL 1000 ml/24 HR Normal [facility] Comment on above: Performed By: #### I MMUN G #### [facility] [address] [place] [address] Dr. Li Nagel Performed By: #### A LPHPHN #### [facility] [address] [place] [address] Dr. Li Nagel CREA 24 HR URINEon CREA, 24 HR UR 1891.80 mg/24 hr Critically high 800.00 -1,800. 00 [facility] Comment on above: Performed By: #### A LPHPHN #### [facility] [address] [place] [address] Dr. Li Nagel URINE CREAT 189.18 mg/dL Normal 20.00-300.00 [facility] Comment on above: Performed By: #### A LPHPHN #### [facility] [address] [place] [address] Dr. Li Nagel PTH INTACTon 07-08-2022 PTH, Intact 41 pg/mL Normal 15-65 [facility] Comment on above: Performed By: #### H EPACUT #### [facility] [address] [place] [address] Dr. Li Nagel SODIUM 24 HR URINEon 03-17-2 023 NA, 24 HR UR 149 mmol/24 hr Normal 40-220 [facility] Comment on above: Performed By: #### A LPHPHN #### [facility] [address] [place] [address] Dr. Li Nagel Sodium (U) [Moles/Vol] 149 mmol/L Critically high 30-90 [facility] Comment on above: Performed By: #### A LPHPHN #### [facility] [address] [place] [address] Dr. Li Nagel BUNon 07-06-2022 Urea nitrogen [Mass/Vol] 11.0 mg/dL Normal 7.0-18.0 [facility] Comment on above: Performed By: #### B UN, URIC, CA, K, NA, CL, CO2, CREA #### [facility] [address] [place] [address] Dr. Li Nagel CALCIUMon 07-06-2022 Calcium [Mass/Vol] 9.0 mg/dL Normal 8.5-10.1 [facility] Comment on above: Performed By: #### B UN, URIC, CA, K, NA, CL, CO2, CREA #### [facility] [address] [place] [address] Dr. Li Nagel CHLORIDEon 07-06-2022 Chloride [Moles/Vol] 107 mmol/L Normal 98-107 [facility] Comment on above: Performed By: #### I MMUN G #### [facility] [address] [place] [address] Dr. Li Nagel CO2on 07-06-2022 CO2 [Moles/Vol] 29.2 mmol/L Normal 21.0-32.0 [facility] Comment on above: Performed By: #### I MMUN G #### [facility] [address] [place] [address] Dr. Li Nagel CREATININEon 07-06-2022 Creatinine [Mass/Vol] 0.97 mg/dL Normal 0.55-1.02 [facility] Comment on above: Performed By: #### B UN, URIC, CA, K, NA, CL, CO2, CREA #### [facility] [address] [place] [address] Dr. Li Nagel EGFR-AF BENINESE >60 Normal >=60 [facility] Comment on above: Performed By: #### B UN, URIC, CA, K, NA, CL, CO2, CREA #### [facility] [address] [place] [address] Dr. Li Nagel EGFR-NON AF BENINESE >60 Normal >=60 [facility] Comment on above: Performed By: #### B UN, URIC, CA, K, NA, CL, CO2, CREA #### [facility] [address] [place] [address] Dr. Li Nagel NAon 07-06-2022 Sodium [Moles/Vol] 143 mmol/L Normal 136-145 [facility] Comment on above: Performed By: #### I MMUN G #### [facility] [address] [place] [address] Dr. Li Nagel POTASSIUMon 07-06-2022 Potassium [Moles/Vol] 3.6 mmol/L Normal 3.5-5.1 [facility] Comment on above: Performed By: #### I MMUN G #### [facility] [address] [place] [address] Dr. Li Nagel URIC ACID SERUMon 07-06-2022 Urate [Mass/Vol] 4.7 mg/dL Normal 2.6-6.0 [facility] Comment on above: Performed By: #### B UN, URIC, CA, K, NA, CL, CO2, CREA #### [facility] [address] [place] [address] Dr. Li Nagel XR KUB 1 VIEWon 06-30-2022 XR KUB 1 VIEW EXAMINATION: XR KUB 1 VIEW HISTORY: Urinary tract infectious disease COMPARISON: 12/20/2021 CT exam FINDINGS: KIDNEY/URETER - RIGHT: No visible renal or ureteral calcifications. KIDNEY/URETER - LEFT: No visible renal or ureteral calcifications. PELVIS: No visible ureteral calcifications. Single left pelvic calcification previously noted vascular phlebolith BOWEL: No abnormal dilation or deviation. Moderate amount of stool in the right and transverse colon BONES: No acute abnormality. OTHER: Umbilical piercing. No abnormal gaseous collections. IMPRESSION: No definite urinary tract calculi Electronically authenticated by: JACKSON ADKINS Date: 2022-06-30 07:02 Normal [facility] US ABD RIGHT UPPER QUADRANTo n 06-15-2022 US ABD RIGHT UPPER QUADRANT * * *Final Report* * * DATE OF EXAM: Jun 15 2022 8:13PM VHU [id number] - US ABD RIGHT UPPER QUADRANT / PROCEDURE REASON: Liver lesion * * * * Physician Interpretation * * * * EXAMINATION: RIGHT UPPER QUADRANT ULTRASOUND CLINICAL HISTORY: Liver lesion TECHNIQUE: Sonography of the right upper quadrant was performed. Images were obtained and stored in a permanent archive. MQ: URUQ_2 COMPARISON: 06/10/2022 RESULT: Pancreas: Normal sonographic appearance. Portions obscured: tail Liver: Echotexture: Normal, homogeneous. Echogenicity: Increased Surface contour: Smooth Lesions: There is a cyst noted in the right lobe of the liver. It measures 1.7 x 1.9 x 1.9 cm Biliary: No intrahepatic biliary duct dilation. CBD: 0.4 cm at the hilum. Gallbladder: Contracted -Contents: No cholelithiasis -Wall: Normal -Other: No pericholecystic fluid. Right Kidney: No hydronephrosis. Hyperechoic renal pyramids and small punctate renal stones. Ascites: None. IMPRESSION: Hepatic steatosis. Right lobe hepatic cyst. Possible medullary nephrocalcinosis and a few right renal stones. [employer]: [facility] Transcribe Date/Time: Jun 16 2022 7:46A Dictated by : MINERVA LIM MD This examination was interpreted and the report reviewed and electronically signed by: MINERVA LIM MD on Jun 16 2022 7:48AM EST [id number] Normal [facility] US ABD RT UPPER QUADRANTon 0 06-15-[address] [facility] [address] ABD/PEL WO IVCONon 2022 Radiology Result ACTIONABLE Abnormal Kely farr [facility] No Panel Informationon 05-27 [facility] XR CHEST 2V FRONTAL/LATon XR CHEST 2V FRONTAL/LAT * * *Final Report* * * DATE OF EXAM: May 27 2022 12:33PM VHX [id number] - XR CHEST 2V FRONTAL/LAT / PROCEDURE REASON: SOB (shortness of breath) * * * * Physician Interpretation * * * * EXAMINATION: CHEST RADIOGRAPH (2 VIEW FRONTAL and LATERAL) CLINICAL HISTORY: SOB (shortness of breath) MQ: XC2_6 EXAM DATE/TIME: 05/27/2022 12:33 PM COMPARISON: No relevant prior studies available. RESULT: Lines, tubes, and devices: None. Lungs and pleura: No consolidation. No lung mass. No pleural effusion. No pneumothorax. Cardiomediastinal silhouette: Normal cardiomediastinal silhouette. Bones and soft tissues: Unremarkable. IMPRESSION: No acute radiographic abnormality. [employer]: [facility] Transcribe Date/Time: May 27 2022 12:39P Dictated by : MARCELA STILL MD This examination was interpreted and the report reviewed and electronically signed by: MARCELA STILL MD on May 27 2022 12:39PM EST [id number] Normal [facility] [id number] [facility] 05-11-2022 [id number]-[id number], Serum 130 mg/dL Normal 100-188 [facility] Comment on above: Result Comment: Perf ormed at: CB Performed By: #### A LPHPHN #### [facility] [address] [place] [address] Dr. Li Nagel Phenotype (PI) MM Normal [facility] Comment on above: Result Comment: Phen otype Population A-1-AT Concentration* Incidence % % of MM (Typical Range) MM 86.5% 100% (96 - 189) MS 8.0% 86% (83 - 161) MZ 3.9% 61% (60 - 111) FM 0.4% 100% (93 - 191) SZ 0.3% 41% (42 - 75) SS 0.1% 64% (62 - 119) ZZ 0.05% 19% (16 - 38) FS 0.05% 70% (70 - 128) FZ Unknown 46% (44 - 88) FF Unknown Unknown *A-1-AT concentration in the homozygous MM phenotype is taken as the reference normal. Percent deficiency in each phenotype is reported relative to this reference. Ranges used to confirm phenotype. Performed at: BN Performed By: #### A LPHN #### [facility] [address] [place], [place] [address] Dr. Li Nagel HEREDITARY HEMOCHROMATOSIS, DNA ANALYSISon 05-11-2022 Hereditary Hemochromatosis Comment Normal [facility] Comment on above: Result Comment: Resu lt: c.845G>A (p.Zqt601Gfe) - Not Detected c.187C>G (p.Gqn41Igs) - Not Detected c.193A>T (p.Iyb95Iql) - Not Detected Not associated with increased risk to develop clinical symptoms of Hereditary Hemochromatosis. In symptomatic individuals, other causes of iron overload should be evaluated. See Additional Information and Comments. Additional Clinical Information: Hereditary hemochromatosis (HFE related) is an autosomal recessive iron storage disorder. Patients may have a genetic diagnosis of hereditary hemochromatosis and never show clinical symptoms. Clinical symptoms typically appear between 40 to 60 years in males and after menopause in females. Signs and symptoms may include organ damage, primarily in the liver, risk for hepatocellular carcinoma, diabetes, and heart disease due to iron accumulation. Life expectancy may be decreased in individuals who develop cirrhosis. Treatment for clinically symptomatic individuals may include therapeutic phlebotomy. Liver transplant may be used to treat end stage liver failure. For preventive care, monitoring for iron overload is recommended for patients who are homozygous for c.845G>A (p.Swe717Hdz) and have yet to experience clinical symptoms. . Comments: The most common HFE variants associated with hereditary hemochromatosis are c.845G>A (p.Cvc299Uwg), c.187C>G (p.Lyc11Jqr), c.193A>T (p.Uqp98Pio). While patients homozygous for c.845G>A (p.Ctz185Kus) are the most likely to present clinical symptoms, less than 10% develop clinically significant iron overload with tissue and organ damage. . Genetic counseling is recommended to discuss the potential clinical implications of positive results, as well as recommendations for testing family members. Genetic Coordinators are available for health care providers to discuss results at [phone]). . Test Details: Three variants analyzed: c.845G>A (p.Gar782Whc), commonly referred to as C282Y c.187C>G (p.Jhs27Reo), commonly referred to as H63D c.193A>T (p.Ytr96Zto), commonly referred to as S65C . Methods/Limitations: DNA Analysis of the HFE gene (NM_[id number]) was performed by PCR amplification followed by restriction enzyme digestion analyses. Results must be combined with clinical information for the most accurate interpretation. Molecular-based testing is highly accurate, but as in any laboratory test, diagnostic errors may occur. False positive or false negative results may occur for reasons that include genetic variants, blood transfusions, bone marrow transplantation, somatic or tissue-specific mosaicism, mislabeled samples, or erroneous representation of family relationships. This test was developed and its performance characteristics determined by [employer]. It has not been cleared or approved by the Food and Drug Administration. . References: Brodie BR, Yoav PC, Deborah KV, Raymond LW, Ramsey ; [employer] [employer]. Diagnosis and management of hemochromatosis: 2011 practice guideline by the [place] [employer] Liver Diseases. Hepatology. 2010;54(1):328-43. doi: 10.1002/hep.04835. PMID: 82631875; PMCID: [id number]. Cora G, Olegario P, Fabio DW, Tabatha H, Love O, Zev S, Vazquez I, Kofi M, Sunitha S. [facility] best practice guidelines for the molecular genetic diagnosis of hereditary hemochromatosis (HH). Eur J Hum Margaret. 2016 Jul;24(4):479-95. doi: 10.1038/ejhg.2015.128. Epub 2014Oct 29. PMID: 18693442; PMCID: QHJ2753290. . Kenya Hager, PhD, FACMG Dm Reyna, PhD Alexandro Rodriguez, PhD, FACMG Jhony Hammond, PhD, FACMG Oumar Avila, PhD, [employer]ACMG Rob Brand, PhD, FACMG Pascale Gracia, PhD, FACMG Lala Marvin, PhD, FACMG Performed By: #### H [facility] #### [facility] [address] [place] [address] Dr. Li Nagel DENY by IFAon 05-06-2022 Antinuclear Antibodies, IFA Negative Normal [facility] Comment on above: Result Comment: Nega tive <1:80 Borderline 1:80 Positive >1:80 ICAP nomenclature: AC-0 For more information about Hep-2 cell patterns use ANApatterns.org, the official website for the International Consensus on Antinuclear Antibody (DENY) Patterns (ICAP). Performed By: #### A LPHPHN #### [facility] [address] [place] [address] Dr. Li Nagel CERULOPLASMINon 05-05-2022 Ceruloplasmin 27.9 mg/dL Normal 19.0-39.0 [facility] Comment on above: Performed By: #### H EPACUT #### [facility] [address] [place] [address] Dr. Li Nagel HEPATITIS A AB IGMon 023 Hep A Ab, IgM Negative Normal Negative [facility] Comment on above: Performed By: #### I MMUN G #### [facility] [address] [place] [address] Dr. Li Nagel IMMUNOGLOBULIN G INDEX SERUM OR CSFon 05-05-2022 Albumin [Mass/Vol] 4.8 g/dL Normal 3.8-4.8 [facility] Comment on above: Performed By: #### I MMUN G #### [facility] [address] [place] [address] Dr. Li Nagel Albumin, CSF NSPINL Normal [facility] Comment on above: Result Comment: Test not performed. No spinal fluid received. contacted Radha at your facility on 05-05-2022 Performed By: #### I MMUN G #### [facility] [address] [place] [address] Dr. Li Nagel CSF IgG Index UPTCAL Normal [facility] Comment on above: Result Comment: Unab le to calculate result since non-numeric result obtained for component test. Performed By: #### I MMUN G #### [facility] [address] [place] [address] Dr. Li Nagel IgG, Quant, CSF NSPINL Normal [facility] Comment on above: Result Comment: Test not performed. No spinal fluid received. contacted Radha at your facility on 05-05-2022 Performed By: #### I MMUN G #### [facility] [address] [address] [address] Li Nagel IgG/Alb Ratio, CSF UPTCAL Normal [facility] Comment on above: Result Comment: Unab le to calculate result since non-numeric result obtained for component test. Performed By: #### I MMUN G #### [facility] [address] [address] [address] Li Nagel Immunoglobulin G, Qn, Serum 971 mg/dL Normal [id number] [facility] Comment on above: Performed By: #### I MMUN G #### [facility] [address] [place] [address] Dr. Li Nagel LIVER-KIDNEY MICROSOMAL (LKM ) ABon 05-05-2022 Liver-Kidney Microsomal Ab 1.3 Units Normal 0.0-20.0 [facility] Comment on above: Result Comment: Nega tive 0.0 - 20.0 Equivocal 20.1 - 24.9 Positive >24.9 . LKM type 1 antibodies are detected in patients with autoimmune hepatitis type 2 and in up to 8% of patients with chronic HCV infection. Performed By: #### H EPACUT #### [facility] [address] [place] [address] Dr. Li Nagel MITICHONDRIAL (M2) ANTIBODYo n 05-05-2022 Mitochondrial (M2) Antibody <20.0 Normal 0.0-20.0 [facility] Comment on above: Result Comment: Nega tive 0.0 - 20.0 Equivocal 20.1 - 24.9 Positive >24.9 . Mitochondrial (M2) Antibodies are found in 90-96% of patients with primary biliary cirrhosis. Performed By: #### A LPHPHN #### [facility] [address] [place] [address] Dr. Li Nagel SMOOTH MUSCLE ANTIBODYon Actin (Smooth Muscle) Antibody 9 Units Normal 0-19 [facility] Comment on above: Result Comment: Nega tive 0 - 19 Weak positive 20 - 30 Moderate to strong positive >30 . Actin Antibodies are found in 52-85% of patients with autoimmune hepatitis or chronic active hepatitis and in 22% of patients with primary biliary cirrhosis. Performed By: #### A LPHPHN #### [facility] [address] [address] [address] Li Nagel FERRITINon 05-03-2022 Ferritin [Mass/Vol] 319.0 ng/mL Critically high 6.2-137.0 [facility] Comment on above: Performed By: #### A LPHPHN #### [facility] [address] [address] [address] Li Nagel PAP ACOG PANEL 2: 30 to 65on 04-28-2022 . . Normal [facility] Comment on above: Result Comment: Perf ormed at: BA Performed By: #### I MMUN G #### [facility] [address] [place] [address] Dr. Li Nagel Age Gdln ACOG Testing - Normal [facility] Comment on above: Performed By: #### I MMUN G #### [facility] [address] [address] [address] Li Nagel DIAGNOSIS: Comment Normal [facility] Comment on above: Result Comment: NEGA TIVE FOR INTRAEPITHELIAL LESION OR MALIGNANCY. Performed at: BA Performed By: #### I MMUN G #### [facility] [address] [place] [address] Dr. Li Nagel HPV Aptima Negative Normal Negative [facility] Comment on above: Result Comment: This nucleic acid amplification test detects fourteen high-risk HPV types (16,18,31,33,35,39,45,51,52,56,58,59,66,68) without differentiation. Performed at: =G Performed By: #### I MMUN G #### [facility] [address] [address] [address] Li Nagel HPV Genotype Reflex Comment Normal [facility] Comment on above: Result Comment: Crit eria not met, HPV Genotype not performed. Performed at: BA Performed By: #### I MMUN G #### [facility] [address] [place] [address] Dr. Li Nagel Methodology: Comment Normal [facility] Comment on above: Result Comment: This liquid based ThinPrep(R) pap test was screened with the use of an image guided system. Performed at: WB Performed By: #### I MMUN G #### [facility] [address] [place] [address] Dr. Li Nagel Note: Comment Normal [facility] Comment on above: Result Comment: The Pap smear is a screening test designed to aid in the detection of premalignant and malignant conditions of the uterine cervix. It is not a diagnostic procedure and should not be used as the sole means of detecting cervical cancer. Both false-positive and false-negative reports do occur. . Performed at: WB Performed By: #### I MMUN G #### [facility] [address] [place] [address] Dr. Li Nagel Performed by: Comment Normal [facility] Comment on above: Result Comment: Gretta Holly, Help Desk Representative (ASCP) Performed at: BA Performed By: #### I MMUN G #### [facility] [address] [place] [address] Dr. Li Nagel Specimen adequacy: Comment Normal [facility] Comment on above: Result Comment: Sati sfactory for evaluation. No endocervical component is identified. Performed at: BA Performed By: #### I MMUN G #### [facility] [address] [place] [address] Dr. Li Nagel [facility]ITIS PANEL, [facility] Screen Negative Normal Negative [facility] Comment on above: Performed By: #### H EPACUT #### [facility] [address] [place] [address] Dr. Li Nagel HCV AB <0.1 Normal 0.0-0.9 [facility] Comment on above: Performed By: #### H EPACUT #### [facility] [address] [place] [address] Dr. Li Nagel Hep A Ab, IgM Negative Normal Negative [facility] Comment on above: Performed By: #### H EPACUT #### [facility] [address] [place], [place] [address] Dr. Li Nagel Hep B Core Ab, IgM Negative Normal Negative [facility] Comment on above: Performed By: #### H EPACUT #### [facility] [address] [place], [place] [address] Dr. Li Nagel Interpretation: Comment Normal [facility] Comment on above: Result Comment: Nega tive Not infected with HCV, unless recent infection is suspected or other evidence exists to indicate HCV infection. Performed By: #### H EPACUT #### [facility] [address] [place], [place] [address] Dr. Li Nagel US PELVIS AND TRANSVAGon US PELVIS AND TRANSVAG EXAMINATION: US PELVIS AND TRANSVAG HISTORY: Cyst of ovary ; follow-up bilateral ovarian cysts COMPARISON: Ultrasound pelvis 10/27/2021 TECHNIQUE: Transabdominal and transvaginal sonographic examination. FINDINGS: UTERUS: Hysterectomy. RIGHT OVARY: Normal size and appearance. Duplex Doppler demonstrates normal waveform and flow; resistive index 0.5. Ovary size: 1.8 x 1.8 x 2.4 cm LEFT OVARY: Contains a 2.1 cm benign-appearing cyst. Duplex Doppler demonstrates normal waveform and flow; resistive index 0.5. Ovary size: 2.8 x 2.4 x 2.9 cm CUL-DE-SAC: Unremarkable. No significant free fluid. BLADDER: Unremarkable. OTHER: None. IMPRESSION: 1. Resolution of previously seen complex ovarian cysts. 2. Hysterectomy. Electronically authenticated by: LAURIE CRUZ Date: 2021-12-22 09:50 Normal [facility] US ABD RT UPPER QUADRANTon 0 12-10-2021 [facility] US PELVIS AND TRANSVAGon US PELVIS AND TRANSVAG EXAMINATION: US PELVIS AND TRANSVAG HISTORY: Dyspareunia for one year COMPARISON: No relevant comparison available. TECHNIQUE: Transabdominal and transvaginal sonographic examination. FINDINGS: UTERUS: Hysterectomy. RIGHT OVARY: Large, rounded and thin-walled, avascular markedly heterogeneous, and hypoechoic structure within right ovary, 4.4 x 4.2 x 4.0 cm. Duplex Doppler demonstrates normal waveform and flow; resistive index 0.4. Ovary size: 4.7 x 4.6 x 4.7 cm LEFT OVARY: Similar-appearing markedly heterogeneous and hypoechoic smooth walled structure within left ovary, 5.2 x 5.2 x 5.1 cm. Duplex Doppler demonstrates normal waveform and flow; resistive index 0.4. Ovary size: 6.0 x 5.8 x 5.4 cm CUL-DE-SAC: Unremarkable. No significant free fluid. BLADDER: Unremarkable. OTHER: None. IMPRESSION: 1. Prior hysterectomy. 2. Large complex cystic structure within the right and left ovary most suggestive of hemorrhagic cysts versus endometriomas. Follow-up imaging in 6 weeks to document clearing is recommended. Electronically authenticated by: LAURIE CRUZ Date: 2021-10-28 13:01 Normal [facility] VAGINITIS/VAGINOSIS DNA PROB Kwasi 10-21-2021 Sarah species Negative Normal Negative [facility] Comment on above: Performed By: #### I MMUN G #### [facility] [address] [place] [address] Dr. Li Nagel Gardnerella vaginalis Negative Normal Negative [facility] Comment on above: Performed By: #### I MMUN G #### [facility] [address] [place] [address] Dr. Li Nagel Trichomonas vaginalis Negative Normal Negative [facility] Comment on above: Performed By: #### I MMUN G #### [facility] [address] [place] [address] Dr. Li Nagel CBC AUTO DIFFon 10-20-2021 BASO # 0.0 103/ul Normal 0.0-0.1 [facility] Comment on above: Performed By: #### A LPHPHN #### [facility] [address] [place] [address] Dr. Li Nagel Basophils/100 WBC (Bld) 0.4 % Normal 0.2-2.0 [facility] Comment on above: Performed By: #### A LPHPHN #### [facility] [address] [place] [address] Dr. Li Nagel EO # 0.2 103/ul Normal 0.0-0.7 [facility] Comment on above: Performed By: #### A LPHPHN #### [facility] [address] [place] [address] Dr. Li Nagel Eosinophils/100 WBC (Bld) 2.6 % Normal 0.9-7.0 [facility] Comment on above: Performed By: #### A LPHPHN #### [facility] [address] [place] [address] Dr. Li Nagel Erythrocyte distribution width (RBC) [Ratio] 12.6 % Normal 11.0-15.0 [facility] Comment on above: Performed By: #### A LPHPHN #### [facility] [address] [place] [address] Dr. Li Nagel Hematocrit (Bld) [Volume fraction] 40.0 % Normal 36.0-48.0 [facility] Comment on above: Performed By: #### A LPHPHN #### [facility] [address] [place] [address] Dr. Li Nagel Hemoglobin (Bld) [Mass/Vol] 13.3 g/dL Normal 12.0-16.0 [facility] Comment on above: Performed By: #### A LPHPHN #### [facility] [address] [place] [address] Dr. Li Nagel IG # 0.06 10e3/ul Critically high 0.00-0.03 [facility] Comment on above: Performed By: #### A LPHPHN #### [facility] [address] [place] [address] Dr. Li Nagel IG % 0.9 % Critically high 0.0-0.5 [facility] Comment on above: Performed By: #### A LPHPHN #### [facility] [address] [place] [address] Dr. Li Nagel LYMPH # 2.2 103/ul Normal 1.2-3.8 [facility] Comment on above: Performed By: #### A LPHPHN #### [facility] [address] [place] [address] Dr. Li Nagel Lymphocytes/100 WBC (Bld) 31.0 % Normal 20.5-60.0 [facility] Comment on above: Performed By: #### A LPHPHN #### [facility] [address] [place] [address] Dr. Li Nagel MANUAL DIFF REQ NO Normal [facility] Comment on above: Performed By: #### A LPHPHN #### [facility] [address] [place] [address] Dr. Li Nagel MCH (RBC) [Entitic mass] 31.4 pg Normal 26.7-34.0 [facility] Comment on above: Performed By: #### A LPHPHN #### [facility] [address] [place] [address] Dr. Li Nagel MCHC (RBC) [Mass/Vol] 33.3 g/dL Normal 29.9-35.2 [facility] Comment on above: Performed By: #### A LPHPHN #### [facility] [address] [place] [address] Dr. Li Nagel MCV (RBC) [Entitic vol] 94.3 fL Normal 81.0-99.0 [facility] Comment on above: Performed By: #### A LPHPHN #### [facility] [address] [place] [address] Dr. Li Nagel MONO # 0.5 103/ul Normal 0.3-0.8 [facility] Comment on above: Performed By: #### A LPHPHN #### [facility] [address] [place] [address] Dr. Li Nagel Monocytes/100 WBC (Bld) 6.9 % Normal 1.7-12.0 [facility] Comment on above: Performed By: #### A LPHPHN #### [facility] [address] [place] [address] Dr. Li Nagel NEUT # 4.1 103/ul Normal 1.4-6.5 [facility] Comment on above: Performed By: #### A LPHPHN #### [facility] [address] [place] [address] Dr. Li Nagel Neutrophils/100 WBC (Bld) 58.2 % Normal 43.0-75.0 [facility] Comment on above: Performed By: #### A LPHPHN #### [facility] [address] [place] [address] Dr. Li Nagel Platelet mean volume (Bld) [Entitic vol] 11.0 fL Normal 9.5-13.5 [facility] Comment on above: Performed By: #### A LPHPHN #### [facility] [address] [place] [address] Dr. Li Nagel PLT 211 103/ul Normal 150-450 [facility] Comment on above: Performed By: #### A LPHPHN #### [facility] [address] [place] [address] Dr. Li Nagel RBC 4.24 106/ul Normal 4.20-5.40 [facility] Comment on above: Performed By: #### A LPHPHN #### [facility] [address] [place] [address] Dr. Li Nagel WBC 7.0 103/ul Normal 4.0-11.0 [facility] Comment on above: Performed By: #### A LPHPHN #### [facility] [address] [place] [address] ABD/PELV W CONon 10-21-[address] ABD/PELV W CON EXAMINATION: CT ABD/PELV W CON HISTORY: Abdominal pain and blood in the stone for 3 days. History of diverticulitis. COMPARISON: CT dated 03/10/2019. TECHNIQUE: IV contrast only was administered. Sagittal and coronal reformatted images were produced. Dose reduction techniques were achieved by using automated exposure control and/or adjustment of mA and/or kV according to patient size and/or use of iterative reconstruction technique. FINDINGS: The lung bases are clear. Lower mediastinal structures are stable in appearance. The liver shows stable enlargement with mild fatty change. Stable simple cyst in the posterior right lobe. The spleen, adrenal glands, pancreas, gallbladder show normal enhancement characteristics. The kidneys enhance symmetrically and show no calcifications or hydronephrosis. The aorta has a normal course and caliber. The large and small bowel are normal caliber. A normal appendix is seen in the right lower quadrant. Bilateral ovaries are grossly normal. Surgical changes of hysterectomy. Urinary bladder is normal. There is no free air or free fluid and no inflammatory stranding is seen. Stable small umbilical hernia containing only fat. Osseous structures are stable in appearance. IMPRESSION: No acute process. No abnormality is seen to clearly account for the symptoms. Other stable findings as above. Electronically authenticated by: MARIA DOLORES MOON Date: 2021-10-20 14:53 Normal [facility] OCC BLD IMMUNO SCREENon 09-23 OCCULT BLOOD Negative Normal NEGATIVE [facility] Comment on above: Performed By: #### O BSCRN #### [facility] [address] [place] [address] Dr. Li Nagel PROF 14(COMP METB)on 022 Albumin [Mass/Vol] 3.7 g/dL Normal 3.4-5.0 [facility] Comment on above: Performed By: #### A LPHPHN #### [facility] [address] [place] [address] Dr. Li Nagel Albumin/Globulin [Mass ratio] 1.2 {ratio} Normal [facility] Comment on above: Performed By: #### A LPHPHN #### [facility] [address] [place] [address] Dr. Li Nagel ALP [Catalytic activity/Vol] 86 U/L Normal 46-116 [facility] Comment on above: Performed By: #### A LPHPHN #### [facility] [address] [place] [address] Dr. Li Nagel ALT [Catalytic activity/Vol] 109 U/L Critically high 14-59 [facility] Comment on above: Performed By: #### A LPHPHN #### [facility] [address] [place] [address] Dr. Li Nagel Anion gap [Moles/Vol] 7.8 mmol/L Normal [facility] Comment on above: Performed By: #### A LPHPHN #### [facility] [address] [place] [address] Dr. Li Nagel AST [Catalytic activity/Vol] 57 U/L Critically high 15-37 [facility] Comment on above: Performed By: #### A LPHPHN #### [facility] [address] [place] [address] Dr. Li Nagel Bilirubin [Mass/Vol] 0.4 mg/dL Normal 0.2-1.0 [facility] Comment on above: Performed By: #### A LPHPHN #### [facility] [address] [place] [address] Dr. Li Nagel Calcium [Mass/Vol] 8.9 mg/dL Normal 8.5-10.1 [facility] Comment on above: Performed By: #### A LPHPHN #### [facility] [address] [place] [address] Dr. Li Nagel Chloride [Moles/Vol] 104 mmol/L Normal 98-107 [facility] Comment on above: Performed By: #### A LPHPHN #### [facility] [address] [place] [address] Dr. Li Nagel CO2 [Moles/Vol] 27.7 mmol/L Normal 21.0-32.0 [facility] Comment on above: Performed By: #### A LPHPHN #### [facility] [address] [place] [address] Dr. Li Nagel Creatinine [Mass/Vol] 0.78 mg/dL Normal 0.55-1.02 [facility] Comment on above: Performed By: #### A LPHPHN #### [facility] [address] [place] [address] Dr. Li Nagel EGFR-AF BENINESE >60 Normal >=60 [facility] Comment on above: Performed By: #### A LPHPHN #### [facility] [address] [place] [address] Dr. Li Nagel EGFR-NON AF BENINESE >60 Normal >=60 [facility] Comment on above: Performed By: #### A LPHPHN #### [facility] [address] [place] [address] Dr. Li Nagel Globulin (S) [Mass/Vol] 3.2 g/dL Normal [facility] Comment on above: Performed By: #### A LPHPHN #### [facility] [address] [place] [address] Dr. Li Nagel Glucose [Mass/Vol] 104 mg/dL Normal 74-106 [facility] Comment on above: Performed By: #### A LPHPHN #### [facility] [address] [place] [address] Dr. Li Nagel Potassium [Moles/Vol] 3.5 mmol/L Normal 3.5-5.1 [facility] Comment on above: Performed By: #### A LPHPHN #### [facility] [address] [place] [address] Dr. Li Nagel Protein [Mass/Vol] 6.9 g/dL Normal 6.4-8.2 [facility] Comment on above: Performed By: #### A LPHPHN #### [facility] [address] [place] [address] Dr. Li Nagel Sodium [Moles/Vol] 136 mmol/L Normal 136-145 [facility] Comment on above: Performed By: #### A LPHPHN #### [facility] [address] [place] [address] Dr. Li Nagel Urea nitrogen [Mass/Vol] 10.0 mg/dL Normal 7.0-18.0 [facility] Comment on above: Performed By: #### A LPHPHN #### [facility] [address] [place] [address] Dr. Li Nagel Urea nitrogen/Creatinine [Mass ratio] 12.8 mg/mg Normal [facility] Comment on above: Performed By: #### A LPHPHN #### [facility] [address] [place] [address] Dr. Li Nagel XR LSPINE MIN 4 VIEWSon 08-22 XR LSPINE MIN 4 VIEWS EXAMINATION: XR LSPINE MIN 4 VIEWS HISTORY: Low back pain in right hip pain since falling COMPARISON: XR lumbar spine 06/14/2018 FINDINGS: BONES: No significant spondylosis, scoliosis, fracture, or visible bony lesion. DISC SPACES: No significant disc height narrowing, subluxation, or endplate abnormality. PARASPINOUS: Negative. No paraspinous abnormality is seen. OTHER: Negative. IMPRESSION: 1. No acute abnormality or appreciable degenerative changes. Electronically authenticated by: LAURIE CRUZ Date: 2021-09-06 15:05 Normal [facility] NM HEPATOBILIARY SCAN W EFon 08-27-2021 NM HEPATOBILIARY SCAN W EF EXAMINATION: NM HEPATOBILIARY SCAN W EF HISTORY: Right upper quadrant pain COMPARISON: No relevant comparison available. TECHNIQUE: Radionuclide hepatobiliary imaging was performed after intravenous injection of 4.8 mCi Tc-99m mebrofenin with sequential acquisitions every 1 minute for one hour. Hepatobiliary imaging with gallbladder ejection fraction analysis was then performed with sequential imaging every 1 minute for 60 minutes after the patient drank 8 ounces of ensure plus. FINDINGS: LIVER: Normal, prompt and uniform radiotracer uptake and clearing. BILIARY DUCTS: Normal radioisotopic biliary excretion. GALLBLADDER: Normal with no evidence of cystic duct obstruction. INTESTINE: Normal with no evidence of common biliary ductal obstruction. EJECTION FRACTION: 51 % within 60 minutes. (Normal EF > 38%). OTHER: Negative. IMPRESSION: Normal hepatobiliary scan and gallbladder ejection fraction Electronically authenticated by: JACKSON ADKINS Date: 2021-08-27 16:05 Normal [facility] Comprehensive Metabolic Pane yair 08-20-2021 Albumin [Mass/Vol] 5.0 g/dL Normal 3.6-5.1 [facility] Comment on above: Performed By: #### C MP #### [facility] [address], [place] [id number] Albumin/Globulin [Mass ratio] 2.1 {ratio} Normal 1.0-2.5 [facility] Comment on above: Performed By: #### C MP #### [facility] [address], [place] [id number] ALP [Catalytic activity/Vol] 110 U/L Normal 35-119 [facility] Comment on above: Performed By: #### C MP #### [facility] [address], [place] [id number] ALT [Catalytic activity/Vol] 71 U/L High 6-33 [facility] Comment on above: Result Comment: 03/24 Female reference range changed. Performed By: #### C MP #### [facility] [address], [place] [id number] Anion gap [Moles/Vol] 17 mmol/L Normal 12-20 [facility] Comment on above: Result Comment: Effe ctive 04/29/2019 reference range changed. Performed By: #### C MP #### [facility] [address], [place] [id number] AST [Catalytic activity/Vol] 69 U/L High 9-34 [facility] Comment on above: Performed By: #### C MP #### [facility] [address], [place] [id number] BUN/CREA 11 Ratio Normal 6-22 [facility] Comment on above: Performed By: #### C MP #### [facility] [address], [place] [id number] Calcium [Mass/Vol] 9.8 mg/dL Normal 8.6-10.2 [facility] Comment on above: Performed By: #### C MP #### [facility] [address], [place] [id number] Chloride [Moles/Vol] 99 mmol/L Normal 98-107 [facility] Comment on above: Performed By: #### C MP #### [facility] [address], [place] [id number] CO2 [Moles/Vol] 25 mmol/L Normal 20-31 [facility] Comment on above: Performed By: #### C MP #### [facility] [address], [place] [id number] Creatinine [Mass/Vol] 0.9 mg/dL Normal 0.6-1.4 [facility] Comment on above: Performed By: #### C MP #### [facility] [address], [place] [id number] eGFRAA 94 mL/min/1.73m2 Normal >60 [facility] Comment on above: Performed By: #### C MP #### [facility] [address], [place] [id number] eGFRNAA 78 mL/min/1.73m2 Normal >60 [facility] Comment on above: Performed By: #### C MP #### [facility] [address], [place] [id number] Globulin (S) [Mass/Vol] 2.4 g/dL Normal 1.9-3.7 [facility] Comment on above: Performed By: #### C MP #### [facility] [address], [place] [id number] Glucose [Mass/Vol] 100 mg/dL High 65-99 [facility] Specialist Comment on above: Result Comment: For FASTING Glucose --- ADA reference ranges: Normal 65-99 mg/dl Prediabetes 100-125 Diabetes >/= 126 Performed By: #### C MP #### [facility] [address], [place] [id number] Potassium [Moles/Vol] 3.8 mmol/L Normal 3.5-5.5 [facility] Comment on above: Performed By: #### C MP #### [facility] [address], [place] [id number] Protein [Mass/Vol] 7.4 g/dL Normal 6.1-8.1 [facility] Specialist Comment on above: Performed By: #### C MP #### [facility] [address], [place] [id number] Sodium [Moles/Vol] 137 mmol/L Normal 135-146 [facility] Specialist Comment on above: Performed By: #### C MP #### [facility] [address], [place] [id number] TBIL <0.3 Normal [facility] Comment on above: Performed By: #### C MP #### [facility] [address], [place] [id number] Urea nitrogen [Mass/Vol] 10 mg/dL Normal 7-25 [facility] Comment on above: Performed By: #### C MP #### [facility] [address], [place] [id number] US SINGLE QUAD RT UPPERon US SINGLE QUAD RT UPPER EXAMINATION: US SINGLE QUAD RT UPPER HISTORY: Blood chemistry abnormal COMPARISON: No relevant comparison available. FINDINGS: The visualized pancreas is normal in appearance. The liver is normal in size and contour. Diffuse increase in hepatic echotexture. Area of anechoic echogenicity in the right hepatic lobe measuring 2.1 x 1.4 x 2.0 cm with increased acoustic through transmission consistent with a simple cyst. The liver measures 17.5 cm in length. Normal hepatopedal flow in the main portal vein with velocity of 24 cm/s. The gallbladder is normal in size. The gallbladder wall measures 2 mm, normal. No pericholecystic fluid or cholelithiasis. The common bile duct measures 2.9 mm, normal. The right kidney is normal in size, contour and echotexture measures 11.4 x 4.0 x 4.6 cm. The cortex measures 1.1 cm thick. No solid mass or hydronephrosis. IMPRESSION: Diffuse increase in hepatic echotexture, hepatic steatosis favored Electronically authenticated by: JACKSON ADKINS Date: 2021-08-16 08:19 Normal [facility] Complete Blood Count with Au to Diffon 08-06-2021 Basophils (Bld) [#/Vol] 0.03 10*3/uL Normal 0.00-0.20 [facility] Comment on above: Performed By: #### C MP, CBCAD, LIPD #### [facility] [address], [place] [id number] Basophils/100 WBC (Bld) 0.4 % Normal [facility] Comment on above: Performed By: #### C MP, CBCAD, LIPD #### [facility] [address], [place] [id number] Eosinophils (Bld) [#/Vol] 0.11 10*3/uL Normal 0.02-0.50 [facility] Comment on above: Performed By: #### C MP, CBCAD, LIPD #### [facility] [address], [place] [id number] Eosinophils/100 WBC (Bld) 1.4 % Normal [facility] [employer] Position Clerk Comment on above: Performed By: #### C MP, CBCAD, LIPD #### [facility] [address], [place] [id number] Erythrocyte distribution width (RBC) [Ratio] 12.6 % Normal 11.0-15.0 [place] [employer] Clerk Comment on above: Performed By: #### C MP, CBCAD, LIPD #### [facility] [address], [place] [id number] Hematocrit (Bld) [Volume fraction] 44.2 % Normal 35.0-47.0 [facility] [employer] Position Clerk Comment on above: Performed By: #### C MP, CBCAD, LIPD #### [facility] [address], [place] [id number] Hemoglobin (Bld) [Mass/Vol] 14.8 g/dL Normal 11.6-15.5 [facility] [employer] Position Clerk Comment on above: Performed By: #### C MP, CBCAD, LIPD #### [facility] [address], [place] [id number] Lymphocytes (Bld) [#/Vol] 2.2 10*3/uL Normal 0.9-3.9 [facility] [employer] Position Clerk Comment on above: Performed By: #### C MP, CBCAD, LIPD #### [facility] [address], [place] [id number] Lymphocytes/100 WBC (Bld) 28.1 % Normal [facility] [employer] Position Clerk Comment on above: Performed By: #### C MP, CBCAD, LIPD #### [facility] [address], [place] [id number] MCH (RBC) [Entitic mass] 31.2 pg Normal 27.0-33.0 [facility] [employer] Position Clerk Comment on above: Performed By: #### C MP, CBCAD, LIPD #### [facility] [address], [place] [id number] MCHC (RBC) [Mass/Vol] 33.5 g/dL Normal 32.0-36.0 [facility] [employer] Position Clerk Comment on above: Performed By: #### C MP, CBCAD, LIPD #### [facility] [address], [place] [id number] MCV (RBC) [Entitic vol] 93 fL Normal 80-100 [facility] [employer] Position Clerk Comment on above: Performed By: #### C MP, CBCAD, LIPD #### [facility] [address], [place] [id number] Monocytes (Bld) [#/Vol] 0.4 10*3/uL Normal 0.2-0.9 [facility] Comment on above: Performed By: #### C MP, CBCAD, LIPD #### [facility] [address], [place] [id number] Monocytes/100 WBC (Bld) 4.8 % Normal [facility] Comment on above: Performed By: #### C MP, CBCAD, LIPD #### [facility] [address], [place] [id number] Neutrophils (Bld) [#/Vol] 5.1 10*3/uL Normal 1.5-7.8 [facility] Comment on above: Performed By: #### C MP, CBCAD, LIPD #### [facility] [address], [place] [id number] Neutrophils/100 WBC (Bld) 64.3 % Normal [facility] Comment on above: Performed By: #### C MP, CBCAD, LIPD #### [facility] [address], [place] [id number] Platelet mean volume (Bld) [Entitic vol] 11.00 fL Normal 7.50-12.50 [facility] Comment on above: Performed By: #### C MP, CBCAD, LIPD #### [facility] [address], [place] [id number] Platelets (Bld) [#/Vol] 296 10*3/uL Normal 140-400 [facility] Comment on above: Performed By: #### C MP, CBCAD, LIPD #### [facility] [address], [place] [id number] RBC (Bld) [#/Vol] 4.74 10*6/uL Normal 3.90-5.20 [facility] Specialist Comment on above: Performed By: #### C MP, CBCAD, LIPD #### [facility] [address], [place] [id number] RDW-SD 43.4 fL Normal 37.0-50.0 [facility] Special[facility] Comment on above: Performed By: #### C MP, CBCAD, LIPD #### [facility] [address], [place] [id number] WBC (Bld) [#/Vol] 8.0 10*3/uL Normal 3.8-11.0 [facility] [employer] Position Clerk Comment on above: Performed By: #### C MP, CBCAD, LIPD #### [facility] [address], [place] [id number] Comprehensive Metabolic Pane yair 08-06-2021 Albumin [Mass/Vol] 5.2 g/dL High 3.6-5.1 [facility] [employer] Position Clerk Comment on above: Performed By: #### C MP, CBCAD, LIPD #### [facility] [address], [place] [id number] Albumin/Globulin [Mass ratio] 2.1 {ratio} Normal 1.0-2.5 [facility] Specialist Comment on above: Performed By: #### C MP, CBCAD, LIPD #### [facility] [address], [place] [id number] ALP [Catalytic activity/Vol] 115 U/L Normal 35-119 [facility] Specialist Comment on above: Performed By: #### C MP, CBCAD, LIPD #### [facility] [address], [place] [id number] ALT [Catalytic activity/Vol] 101 U/L High 6-33 [facility] Specialist Comment on above: Result Comment: 03/24 Female reference range changed. Performed By: #### C MP, CBCAD, LIPD #### [facility] [address], [place] [id number] Anion gap [Moles/Vol] 20 mmol/L Normal 12-20 [facility] Special[facility] Comment on above: Result Comment: Effe ctive 04/29/2019 reference range changed. Performed By: #### C MP, CBCAD, LIPD #### [facility] [address], [place] [id number] AST [Catalytic activity/Vol] 96 U/L High 9-34 [facility] Special[facility] Comment on above: Performed By: #### C MP, CBCAD, LIPD #### [facility] [address], [place] [id number] BUN/CREA 9 Ratio Normal 6-22 [facility] [employer] Position Clerk Comment on above: Performed By: #### C MP, CBCAD, LIPD #### [facility] [address], [place] [id number] Calcium [Mass/Vol] 9.9 mg/dL Normal 8.6-10.2 [facility] [place] [employer] Position Clerk Comment on above: Performed By: #### C MP, CBCAD, LIPD #### [facility] [address], [place] [id number] Chloride [Moles/Vol] 106 mmol/L Normal 98-107 [facility] Comment on above: Performed By: #### C MP, CBCAD, LIPD #### [facility] [address], [place] [id number] CO2 [Moles/Vol] 21 mmol/L Normal 20-31 [facility] [employer] Position Clerk Comment on above: Performed By: #### C MP, CBCAD, LIPD #### [facility] [address], [place] [id number] Creatinine [Mass/Vol] 0.9 mg/dL Normal 0.6-1.4 [facility] [employer] Position Clerk Comment on above: Performed By: #### C MP, CBCAD, LIPD #### [facility] [address], [place] [id number] eGFRAA 90 mL/min/1.73m2 Normal >60 [facility] Foreign [employer] Position Clerk Comment on above: Performed By: #### C MP, CBCAD, LIPD #### [facility] [address], [place] [id number] eGFRNAA 74 mL/min/1.73m2 Normal >60 [facility] Foreign [employer] Position Clerk Comment on above: Performed By: #### C MP, CBCAD, LIPD #### [facility] [address] [facility] [place] [id number] Globulin (S) [Mass/Vol] 2.5 g/dL Normal 1.9-3.7 [facility] Foreign [employer] Position Clerk Comment on above: Performed By: #### C MP, CBCAD, LIPD #### [facility] [address] [facility] [place] [id number] Glucose [Mass/Vol] 127 mg/dL High 65-99 [facility] [employer] Position Clerk Comment on above: Result Comment: For FASTING Glucose --- ADA reference ranges: Normal 65-99 mg/dl Prediabetes 100-125 Diabetes >/= 126 Performed By: #### C NORBERTO, CBCAD, LIPD #### [facility] [address], [place] [id number] Potassium [Moles/Vol] 4.2 mmol/L Normal 3.5-5.5 [facility] [employer] Position Clerk Comment on above: Performed By: #### C NORBERTO, CBCAD, LIPD #### [facility] [address], [place] [id number] Protein [Mass/Vol] 7.7 g/dL Normal 6.1-8.1 [facility] [employer] Position Clerk Comment on above: Performed By: #### C NORBERTO, CBCAD, LIPD #### [facility] [address], [place] [id number] Sodium [Moles/Vol] 143 mmol/L Normal 135-146 [facility] [employer] Position Clerk Comment on above: Performed By: #### C NORBERTO, CBCAD, LIPD #### [facility] [address], [place] [id number] TBIL <0.3 Normal [facility] Specialist Comment on above: Performed By: #### C NORBERTO, CBCAD, LIPD #### [facility] [address], [place] [id number] Urea nitrogen [Mass/Vol] 8 mg/dL Normal 7-25 [facility] [employer] Position Clerk Comment on above: Performed By: #### C NORBERTO, CBCAD, LIPD #### [facility] [address], [place] [id number] Hemoglobin A1Con 08-06-2021 EAG 99.67 Normal [facility] [employer] Position Clerk Comment on above: Performed By: #### A 1C #### [facility] [address], [place] [id number] HbA1c (Bld) [Mass fraction] 5.1 % Normal 4.0-6.0 [facility] [employer] Position Clerk Comment on above: Performed By: #### A 1C #### [facility] [address], [place] [id number] Lipid Panelon 08-06-2021 Cholesterol [Mass/Vol] 190 mg/dL Normal 125-200 [facility] Specialist Comment on above: Result Comment: Low risk < 200mg/dL Borderline risk 201-239 mg/dl High risk > or equal to 240 Performed By: #### C NORBERTO, CBCAD, LIPD #### [facility] [address], [place] [id number] Cholesterol in HDL [Mass/Vol] 64 mg/dL Normal >40 [facility] Specialist Comment on above: Result Comment: High Cardiovascular Risk HDL <40 mg/dL Low Cardiovascular Risk HDL > or equal to 60 mg/dl Performed By: #### C NORBERTO, CBCAD, LIPD #### [facility] [address], [place] [id number] Cholesterol in LDL [Mass/Vol] 107 mg/dL Normal [facility] Specialist Comment on above: Result Comment: LDL ATP III CLASSIFICATION LDL less than 100 mg/dl Optimal LDL 100-129 mg/dl Near or above optimal LDL 130-159 Borderline high LDL 160-189 High LDL greater than 189 mg/dl Very High Performed By: #### C NORBERTO, CBCAD, LIPD #### [facility] [address] [facility] [place] [id number] Cholesterol in VLDL [Mass/Vol] 19 mg/dL Normal [facility] Specialist Comment on above: Performed By: #### C NORBERTO, CBCAD, LIPD #### [facility] [address], [place] [id number] Cholesterol.total/Ch olesterol in HDL [Mass ratio] 3 {ratio} Normal [facility] Specialist Comment on above: Performed By: #### C NORBERTO, CBCAD, LIPD #### [facility] [address], [place] [id number] Triglyceride [Mass/Vol] 95 mg/dL Normal 30-150 [facility] Specialist Comment on above: Result Comment: TRIG ATPIII CLASSIFICATIONS TRIG less than 150 mg/dl Normal TRIG 150-199 mg/dl Borderline High TRIG 200-500 mg/dl High TRIG greather than 500 mg/dl Very High Performed By: #### C NORBERTO, CBCAD, LIPD #### [facility] [address] [facility] [place] [id number] Q - CULTURE,URINE,ROUTINEon 06-04-2021 CULTURE, URINE, ROUTINE SEE NOTE Normal [facility] Foreign [employer] Position Clerk Comment on above: Order Comment: [facility] performed at: [email or web address], [employer], [address], [address], [place], [address], Home Health Registered Nurse: Tim Dotson MD [facility] Collection Date/Time: [id number] [facility] Results Received Date/Time: [facility] Reported Date/Time: [id number] Result Comment: CULT URE, URINE, ROUTINE Micro Number: [id number] Test Status: Final Specimen Source: Not given Specimen Quality: Adequate Result: Mixed genital marie isolated. These superficial bacteria are not indicative of a urinary tract infection. No further organism identification is warranted on this specimen. If clinically indicated, recollect clean-catch, mid-stream urine and transfer immediately to Urine Culture Transport Tube. Performed By: #### [id number] #### [facility] [address] [place] [address] MRI LUMBAR SPINE WO CONTRAST on 11-06-2018 MRI LUMBAR SPINE WO CONTRAST EXAMINATION: MRI LUMBAR SPINE WO CONTRAST HISTORY: M54.16 Lumbar neuritis ICD10 TECHNIQUE: Routine lumbosacral spine MR protocol without gadolinium. COMPARISON: None. RESULT: Counting reference: Lumbosacral junction. For the purposes of this report, L4-5 is considered the level of the iliac crest. Alignment: Alignment is anatomic. Bone marrow signal/fracture: No evidence of pathologic marrow infiltration. No evidence of prior fracture. Conus: The conus is within normal limits of signal intensity and morphology. Paraspinal soft tissues: Paraspinal soft tissues are within normal limits. Lower thoracic spine: Visualized lower thoracic canal and foramina are patent. T12-L1: Canal and foramina are patent. L1-L2: Canal and foramina are patent. L2-L3: Canal and foramina are patent L3-L4: Canal and foramina are patent L4-L5: Canal and foramina are patent L5-S1: Canal and foramina are patent Sacrum and iliac wings: The visualized sacrum and iliac wings are within normal limits. IMPRESSION: Normal MRI of the lumbar spine. Interpreted by: Naren Lagos MD Signed by: Naren Lagos MD 11/06/18 Final result Normal [facility] Vital Signs Date Time Vital Sign Value Performing Clinician Facility 11-02-2022 13:10-0400 Body height 157.5 cm Samuel Freeman MD Work Phone: [facility] 11-02-2022 13:10-0400 Body weight 71 kg Samuel Freeman MD Work Phone: [facility] 11-02-2022 13:10-0400 Diastolic blood pressure 97 mm[Hg] Samuel Freeman MD Work Phone: [facility] 11-02-2022 13:10-0400 Heart rate 100 /min Samuel Freeman MD Work Phone: [facility] 11-02-2022 13:10-0400 Systolic blood pressure 141 mm[Hg] Samuel Freeman MD Work Phone: [facility] 05-27-2022 11:29-0500 Body weight 85.73 kg Carol Winn MD Work Phone: [facility] 05-27-2022 11:29-0500 Diastolic blood pressure 92 mm[Hg] Carol Winn MD Work Phone: [facility] 05-27-2022 11:29-0500 Heart rate 102 /min Carol Winn MD Work Phone: [facility] 05-27-2022 11:29-0500 Systolic blood pressure 145 mm[Hg] Carol Winn MD Work Phone: [facility] 05-03-2022 15:30-0500 Body height 158.75 cm Imad Asaad Other [facility] Other 05-03-2022 15:30-0500 Body mass index (BMI) [Ratio] 34.55 kg/m2 Imad Asaad Other [facility] Other 05-03-2022 15:30-0500 Body weight 87.09 kg Imad Asaad Other [facility] Other 05-03-2022 15:30-0500 Diastolic blood pressure 91 mm[Hg] Imad Asaad Other [facility] Other 05-03-2022 15:30-0500 Systolic blood pressure 130 mm[Hg] Imad Asaad Other [facility] Other 05-03-2022 14:47-0500 Body weight 0 kg MD Giovani Hagen Work Phone: [facility] Encounters Encounter Date Encounter Type Care Provider Facility Start: 11-21-2023 ambulatory FARNAZ DEJESUS Facility:[facility] Start: 11-02-2023 Orders Only Solo Mora MD Work Phone: Cardiology Comment on above: Gastroparesis (Primary Dx) Patient Update (Refe rral & Records are in Care Everywhere) Start: 10-03-2023 End: 10-03-2023 ambulatory RUGEN M HIEU Not Available Start: 09-07-2023 End: 09-07-2023 ambulatory CADE WILCOX Not Available Start: 05-08-2023 End: 05-08-2023 ambulatory RUGEN M HIEU Not Available Start: 04-18-2023 End: 04-18-2023 ambulatory RUGEN M HIEU Not Available Start: 04-06-2023 End: 04-06-2023 ambulatory AKUA DU Not Available Start: 03-22-2023 End: 03-24-2023 Evaluation and management of inpatient [facility] Start: 03-20-2023 ambulatory Carol Winn MD Work Phone: Gastroenterology Comment on above: Thoughts and input Start: 03-20-2023 Telephone encounter Lawrence Campuzano MD Work Phone: [facility] Adult Start: 11-07-2022 End: 11-08-2022 ambulatory Madhuri MISHRA Facility:[facility] Start: 11-03-2022 Telephone encounter Maria Dolores Corey DO Work Phone: Gastroenterology Comment on above: Medication Preauthorization ([place] for Ibs[employer] pilar) Start: 11-02-2022 End: 11-02-2022 Orders Only Maria Dolores Corey DO Work Phone: Gastroenterology Comment on above: Irritable bowel syndrome with constipati on (Primary Dx) Gastroparesis Gastroparesis (Prima ry Dx) Start: 10-26-2022 End: 10-26-2022 ambulatory Imad Asaad Facility:[facility] Start: 10-26-2022 End: 10-26-2022 ambulatory MD Giovani Hagen Work Phone: [facility] Work Phone: Start: 10-26-2022 End: 10-26-2022 Patient encounter procedure MD Giovani Hagen Work Phone: [facility] [place] Work Phone: Start: 10-18-2022 ambulatory Maria Dolores Corey DO Work Phone: Gastroenterology Start: 10-18-2022 Telephone encounter Maria Dolores Corey Work Phone: Gastroenterology Comment on above: Medication Preauthorization ([employer]) Results Start: 10-17-2022 End: 10-18-2022 ambulatory MARIA DOLORES COREY Facility:[facility] Start: 10-17-2022 End: 10-17-2022 Patient encounter procedure [facility] Work Phone: Gastroenterology Comment on above: Gastroparesis (Primary Dx) Start: 09-12-2022 ambulatory NOMA DAKHIL [facility] Start: 09-12-2022 End: 09-12-2022 Subsequent hospital visit by physician [facility] Work Phone: [facility] Radiology Molecular Comment on above: Nausea [R11.0] Start: 08-24-2022 Telephone encounter Nurse Jud [facility] Work Phone: Gastroenterology Comment on above: Appointment Start: 07-08-2022 End: 07-08-[address] MADHURI MISHRA . Facility:[facility] Start: 07-06-2022 End: 07-07-[address] MADHURI MISHRA . Facility:[facility] Start: 07-05-2022 End: 07-05-2022 Patient encounter procedure Madhuri MISHRA [facility] Start: 07-04-2022 Orders Only Carol Winn MD Work Phone: Gastroenterology Start: 06-29-2022 End: 06-30-[address] MADHURI MISHRA . Facility:[facility] Start: 06-29-2022 End: 06-29-2022 Lab Drop off Madhuri MISHRA [facility] Start: 06-23-2022 ambulatory Carol Winn MD Work Phone: Gastroenterology Comment on above: EGD instructions Start: 06-23-2022 E-mail encounter from caregiver Carol Winn MD Work Phone: [facility] Start: 06-16-2022 ambulatory [facility] Gastroenterology Comment on above: Question regarding US ABD RT UPPER QUADR ANT Start: 06-15-2022 ambulatory CAROL WINN Facility:[facility] Start: 06-15-2022 End: 06-15-2022 Subsequent hospital visit by physician [facility] Work Phone: [facility] Radiology Ultrasound Comment on above: Liver lesion [K76.9] Start: 06-14-2022 Orders Only Carol Winn MD Work Phone: Ambulatory Surgery Comment on above: Liver lesion (Primary Dx) Results Start: 06-10-2022 ambulatory Diamond Pycraft RT(R) Radiology Ct Scan Comment on above: Radiology CT Start: 06-10-2022 Patient encounter procedure Diamond Pycraft RT(R) [facility] Start: 06-10-2022 End: 06-10-2022 Subsequent hospital visit by physician Ct [facility] Radiology Ct Scan Comment on above: Bilious vomiting with nausea [R11.14] Start: 05-27-2022 ambulatory CAROL WINN [facility] Start: 05-27-2022 End: 05-27-2022 Subsequent hospital visit by physician [facility] Work Phone: [facility] Radiology General Comment on above: SOB (shortness of breath) [R06.02] Start: 05-27-2022 End: 05-27-2022 Patient encounter procedure Carol Winn MD Work Phone: Gastroenterology Comment on above: Fatty liver (Primary Dx); Bilious vomiting with nausea; Right sided abdominal pain; Nausea; History of diverticulitis; SOB (shortness of breath) Start: 05-13-2022 End: 05-13-2022 ambulatory Imad Asaad Facility:[facility] Start: 05-13-2022 End: 05-13-2022 ambulatory MD Giovani Hagen Work Phone: [facility] Work Phone: Start: 05-13-2022 End: 05-13-2022 Patient encounter procedure MD Giovani Hagen Work Phone: [facility] Work Phone: Start: 05-03-2022 End: 05-04-2022 ambulatory IMAD ASAAD [employer] Other Start: 05-03-2022 Office consultation new/estab patient 60 min Imad Asaad [facility] Start: 04-20-2022 End: 04-20-[address] AURORA IRBY . Facility:[facility] Start: 04-06-2022 End: 04-07-[address] GIOVANI HAGEN Facility:[facility] Start: 12-21-2021 End: 12-22-[address] AURORA IRBY . Facility:[facility] Start: 12-10-2021 End: 12-10-2021 Subsequent hospital visit by physician [facility] Comment on above: Elevated LFTs [R79.89] Start: 10-27-2021 End: 10-28-[address] AURORA IRBY . Facility:[facility] Start: 10-20-2021 End: 10-20-2021 ambulatory BERONICA POPPY . Facility:[facility] Start: 10-19-2021 End: 10-19-[address] AURORA IRBY . Facility:[facility] Start: 09-06-2021 End: 09-07-[address] GIOVANI HAGEN Facility:[facility] Start: 08-27-2021 End: 08-28-[address] GIOVANI HAGEN Facility:[facility] Start: 08-14-2021 End: 08-15-[address] GIOVANI HAGEN Facility:[facility] Start: 11-06-2018 End: 11-09-2018 Patient encounter procedure [facility] Procedures Date Procedure Procedure Detail Performing Clinician Start: 10-26-2022 Ultrasonography of liver MD Giovani Hagen Work Phone: Start: 09-12-2022 Gastric emptying malathi ging study Carol Winn MD Work Phone: Start: 06-15-2022 Us abdominal real ti me w/image limited Carol Winn MD Work Phone: Start: 06-10-2022 Ct abdomen & pelvis w/o contrast material Carol Winn MD Work Phone: Start: 05-27-2022 Radiologic exam chest 2 views Carol Winn MD Work Phone: Start: 05-13-2022 Ultrasound elastogra phy of liver MD Giovani Hagen Work Phone: Start: 12-10-2021 Us abdominal real ti me w/image limited Carol Winn MD Work Phone: Start: 05-01-2019 Cystourethroscopy wi th dilation of urethral stricture Madhuri MISHRA Start: 11-07-2018 RADIOLOGY REPORT SHIVANI MONTEIRO Start: 11-06-2018 Mri spinal canal lum bar w/o contrast material SHIVANI MONTEIRO Start: 09-18-2018 Facet Medial Branch Block 1 Madhuri MISHRA Comment on above: Bilateral T5-T8 -10% relief x 2 hours. Start: 07-31-2018 Injection of sacroil iac joint using fluoroscopic guidance Madhuri MISHRA Comment on above: right 40% relief Start: 07-02-2018 Injection of sacroil iac joint using fluoroscopic guidance Madhuri MISHRA Comment on above: right 50% relief to present section Madhuri SERRANO Hysterectomy Madhuri MISHRA Plan of Treatment Date Care Activity Detail Author Start: 12-24-2023 Influenza [facility] Start: 12-19-2023 End: 12-19-2023 ambulatory 12/19/2023 2:15 PM EDT Results Only Cardiology [address] [place] [address] Exertional Syncope. Referring: Dr. Shilo Dillon Cardiology Comment on above: Exertional Syncope. Referring: Dr. Shilo Dillon Start: 12-19-2023 End: 12-19-2023 Patient encounter procedure Cardiology Comment on above: Exertional Syncope. Referring: Dr. Shilo Dillon Start: 04-24-2023 Behavioral Health Screening Behavioral Health Screening [facility] Start: 12-23-2022 Covid-19 Vaccine ( season) Covid-19 Vaccine ( season) [facility] Start: 12-23-2022 Influenza vaccination [facility] Start: 05-13-2022 [facility] Start: 04-24-2022 DEPRESSION ASSESSMENT DEPRESSION ASSESSMENT [facility] Start: 12-28-2021 COVID-19 VACCINE (4 - Booster for Pfizer series) COVID-19 VACCINE (4 - Booster for Pfizer series) [facility] Start: 12-28-2021 COVID-19 VACCINE (4 - Pfizer series) COVID-19 VACCINE (4 - Pfizer series) [facility] Start: 12-23-2021 Influenza vaccination INFLUENZA (#1) [facility] Start: 02-06-2020 Urine microalbumin profile DTaP,Tdap,Td Vaccine (6 - Td or Tdap) [facility] Start: 2018 HPV TESTING HPV TESTING [facility] Start: 2009 PAP TESTING PAP TESTING [facility] Start: 2009 Screening for malignant neoplasm of cervix Cervical Cancer Screening [facility] Start: 09-29-2007 Urine microalbumin profile DTAP,TDAP,TD (1 - Tdap) [facility] Start: 11-30-2006 HPV Vaccine (2 - 3-dose series) HPV Vaccine (2 - 3-dose series) [facility] Start: 2006 HEPATITIS C SCREENING HEPATITIS C SCREENING [facility] Start: 2006 Hepatitis C screening Hepatitis C Screening [facility] Start: 2006 HIV SCREENING HIV SCREENING [facility] Start: 2006 HIV screening HIV Screening [facility] Start: 1988 HEPATITIS B (1 of 3 - 3-dose series) HEPATITIS B (1 of 3 - 3-dose series) [facility] Actin smooth muscle IgG Ab [Units/volume] in Serum [facility] Alpha 1 antitrypsin [Mass/volume] in Serum or Plasma [facility] Alpha 1 antitrypsin phenotyping [Identifier] in Serum or Plasma by Immunofixation [facility] Ceruloplasmin [Mass/ volume] in Serum or Plasma [facility] End: 06-26-2023 Ct abdomen & pelvis w/o contrast material CT ABD/PEL WO IVCON Radiology Routine Bilious vomiting with nausea Right sided abdominal pain Nausea 1 Occurrences starting 05/27/2022 until 06/26/2023 [facility] Work Phone: Comment on above: 1 Occurrences starting 05/27/2022 until 06/26/2023 End: 11-01-2024 ECG COMPLETE ECG COMPLETE ECG Routine Gastroparesis 1 Occurrences starting 11/02/2023 until 11/01/2024 [facility] Work Phone: Comment on above: 1 Occurrences starting 11/02/2023 until 11/01/2024 End: 05-27-2023 EGD DIAGNOSTIC EGD DIAGNOSTIC Endoscopy Routine Bilious vomiting with nausea Right sided abdominal pain 1 Occurrences starting 05/27/2022 until 05/27/2023 [facility] Work Phone: Comment on above: 1 Occurrences starting 05/27/2022 until 05/27/2023 Electrogastrography dx transcutaneous EGG (ELECTROGASTROGRAPHY) Procedures Routine Gastroparesis Ordered: 09/14/2022 [facility] Work Phone: Comment on above: Ordered: 09/14/2022 Hepatitis A virus Ab [Presence] in Serum by Immunoassay [facility] HFE gene mutations f ound [Identifier] in Blood or Tissue by Molecular genetics method Nominal [facility] Homogenous nuclear A b pattern [Titer] in Serum [facility] IgG [Mass/volume] in Serum or Plasma [facility] Lipoprotein a [Moles /volume] in Serum or Plasma [facility] Mitochondria M2 IgG Ab [Units/volume] in Serum [facility] Nuclear Ab [Titer] in Serum [facility] End: 07-14-2023 Us abdominal real time w/image limited US ABD RT UPPER QUADRANT Radiology Routine Liver lesion 1 Occurrences starting 06/14/2022 until 07/14/2023 [facility] Work Phone: Comment on above: 1 Occurrences starting 06/14/2022 until 07/14/2023 [facility] Immunizations Immunization Date Immunization Notes Care Provider Bernadette vickers 11-02-2021 SARS-CoV-2 mRNA (psqfhqzxkep-zjtt-xkvz ose) vaccine Madhuri MISHRA [facility] 04-29-2021 SARS-CoV-2 (COVID-19 ) mRNA BNT-162b2 vax Madhuri MISHRA [facility] 03-03-2021 SARS-CoV-2 (COVID-19 ) mRNA BNT-162b2 vax Madhuri MISHRA [facility] Comment on above: Result Comment: 2022: TPVAL 02-09-2021 influenza virus vaccine, unspecified formulation Madhuri MISHRA [facility] 03-16-2020 influenza virus vaccine, unspecified formulation Madhuri [employer] [facility] 01-08-2018 influenza virus vaccine, unspecified formulation Madhuri MISHRA [facility] 02-01-2017 influenza virus vaccine, unspecified formulation Madhuri MISHRA [facility] 03-25-2016 influenza virus vaccine, unspecified formulation Madhuri MISHRA [facility] 02-05-2010 tetanus toxoid, reduced diphtheria toxoid, and acellular pertussis vaccine, adsorbed Madhuri MISHRA [facility] 01-05-2007 hepatitis B vaccine, pediatric or pediatric/adolescent dosage Madhuri [employer] [facility] 11-02-2006 hepatitis B vaccine, pediatric or pediatric/adolescent dosage Madhuri [employer] [facility] 11-02-2006 HPV, unspecified formulation MadhuriCombat Stroke [facility] 11-02-2006 meningococcal ACWY vaccine, unspecified formulation Madhuri [employer] [facility] 02-20-1998 hepatitis B vaccine, pediatric or pediatric/adolescent dosage Madhuri [employer] [facility] 12-07-1992 measles, mumps and rubella virus vaccine Madhuri [employer] [facility] 06-09-1992 measles, mumps and rubella virus vaccine Madhuri [employer] [facility] 10-31-1990 varicella virus vaccine Madhuri MISHRA [facility] NEGATED: Highlighted row has not occurred!05-01-2019 influenza virus vaccine, live, attenuated, for intranasal use Madhuri MISHRA [facility] NEGATED: Highlighted row has not occurred!04-03-2019 influenza virus vaccine, live, attenuated, for intranasal use Madhuri MISHRA [facility] Payers Date Payer Category Payer Self-pay [id number] 2020 Unknown [id number] 1988 Unknown [id number] [id number]2 1988 Unknown [id number] 2.16.840.1.840850.3.579.2.593 1988 Unknown [id number] 2.16.840.1.726654.3.579.2.593 1988 Unknown [id number] 2.16.840.1.073839.3.579.2.593 1988 Unknown [id number] 2.16.840.1.152515.3.579.2.593 1988 Unknown [id number] 2.16.840.1.928238.3.579.2.593 1988 Unknown [id number] 2.16.840.1.731823.3.579.2.593 1988 Unknown [id number] 2.16.840.1.752875.3.579.2.593 1988 Unknown [id number] 2.16.840.1.361570.3.579.2.593 1988 Unknown [id number] 2.16.840.1.687013.3.579.2.593 1988 Unknown [id number] 2.16.840.1.197507.3.579.2.593 1988 Unknown [id number] 2.16.840.1.152359.3.579.2.593 1988 Unknown [id number] 2.16.840.1.147105.3.579.2.593 1988 Unknown [id number] 2.16.840.1.454350.3.579.2.593 1988 Unknown [id number] 2.16.840.1.931643.3.579.2.177 1988 Unknown [id number] 2.16.840.1.613487.3.579.2.727 1988 Unknown [id number] 2.16840.1.158176.3.579.2.727 1988 Unknown [id number] 2.16.840.1.962355.3.579.2.1259 1988 Unknown [id number] 2.16.840.1.457305.3.579.2.1259 1988 Unknown [id number] 2.16840.1.276646.3.579.2.1259 1988 Unknown [id number] 2.16840.1.746803.3.579.2.1259 1988 Unknown [id number] 2.16.840.1.336935.3.579.2.1259 1959 Unknown [id number] Unknown 100 [facility] [employer] [id number] Unknown [id number] 2.16840.1.868096.3.579.2.531 Unknown [id number] 2.16840.1.689058.3.579.2.531 Social History Date Type Detail Facility Tobacco smoking stat us NHIS Unknown if ever smoked [facility] Work Phone: Start: 1990 Sex Assigned At Female F [facility] Start: 03-28-2019 End: 05-27-2022 Tobacco smoking status NHIS Never smoked tobacco [facility] Start: 03-28-2019 End: 05-27-2022 Tobacco use and exposure Smokeless tobacco non-user [facility] Start: 05-27-2022 End: 11-02-2022 Alcohol intake Current drinker of alcohol (finding) [facility] Start: 03-28-2019 Alcohol Comment socially [facility] Start: 1990 Sex Assigned At Not on file [facility] Start: 10-17-2022 End: 11-02-2022 Sex Assigned At [facility] Start: 06-29-2022 Tobacco smoking status Ex-smoker (fi nding) [facility] Tobacco smoking status Never [facility] Start: 10-17-2022 End: 11-02-2022 History of Social function [facility] Start: 06-08-2021 Gender identity Identifies as female gender (finding) [facility] Start: 11-16-2021 End: 11-26-2021 Exposure to SARS-CoV-2 (event) Not sure [facility] Goals Date Patient Goal Desired Activity /State Functional Status Date Assessment Result Facility 06-30-2022 Functional Status N/A [facility] Clinical Notes 05-03-2022 to 11-02-2023 Telephone Encounter - Criss Mccrary - 11/02/2023 10:39 AM EDTTelephone Encounter - Criss Mccrary - 11/02/2023 10:39 AM Soraida Baxter, PhD - 11/02/2022 5:16 PM EDT Note Date & Type Note Facility 11-02-2023 Telephone encounter Note Images from the original note were not included. Records are in Care Everywhere: EP Referral- 11/01/23 (Dr. Shilo Dillon/Cardiology) Criss Mccrary [facility] 11-02-2023 Miscellaneous Notes Images from the original note were not included. Records are in Care Everywhere: EP Referral- 11/01/23 (Dr. Shilo Dillon/Cardiology) Criss Mccrary documented in this encounter [facility] 03-20-2023 Miscellaneous Notes Patient is a 32-year-old female with past medical history of gastroparesis presented to ED complaining of nausea vomiting and abdominal pain. CT abdomen showed pancreatitis. Lipase 2400. LFTs elevated. Ultrasound abdomen showed common bile duct dilation 11 mm. ED physician spoke to gastroenterology who recommended transfer for ERCP. Patient is hemodynamically stable. Received 2 L of fluids and IV antibiotics per GI recommendation. Requested to give IV PPI prior to transfer. documented in this encounter [facility] 11-03-2022 Miscellaneous Notes PA for Ibsrela initiated electronically. Awaiting response [facility] ID# [id number] Rx BIN [id number] Rx PCN CLAIMCR Rx Grp [facility] documented in this encounter [facility] 11-02-2022 History of Present illness Narrative [facility] [place] Name: Belgica Harper MR#: [id number] Date: 11/02/2022 Time: 1 hour Referred by: Dr. Corey Reason for Referral: gastroparesis interdisciplinary clinic - address psychological factors as they affect physical condition Information relayed back to referral source via electronic medical record Her chart was reviewed and she gave her own medical, psych and traumatic developmental history. We discussed her past use of alcohol and her current consumption as well as her depression. Alcohol cessation was recommended. The basic principles of the brain gut connection were explored. Emphasis was placed on the effects of stress and emotions on physiology. She discussed ways in which her medical condition had had an effect on her life. She was given information about ways to mediate her emotional and physiological response. She was introduced to relaxation training. She was given the website for the [facility] Behavioral Medicine Program and shown the relaxation recordings with the recommendation to practice this and the rationale behind their use. Follow-up with Dr. Conteh was discussed as well as encouraging her to continue her PTSD work with a local trauma therapist. Soraida Zhang, Ph.D. documented in this encounter [facility] 11-02-2022 History of Present illness Narrative Assessment ASSESSMENT 32 year old female with medical refractory gastroparesis. PLAN I discussed surgical therapy for gastroparesis in detail. Belgica Harper is candidate for further medical treatment. Needs to stop Wegovy May consider for wireless motility capsule study Constipation medication change per Dr. Corey ____ NAME: Belgica Harper CLINIC NO: [id number] DATE OF SERVICE: November 01, 2022 This is an initial consultation for Belgica Harper who was referred to me by Dr. Maria Dolores Corey for evaluation of medical refractory gastroparesis. My final recommendation will be communicated via shared electronic medical record. CHIEF COMPLAINT Drug related Gastroparesis and constipation HISTORY OF PRESENT ILLNESS Belgica Harper is a 32 year old female who comes in today for surgical evaluation for management of gastroparesis. The patient has been evaluated thoroughly including an EGD, and gastric emptying study. Milly is a 32 yr old female w/hx of asthma, bipolar disorder, depression, ADHD, PTSD, diverticulitis, IBS, and C section x3. Patient uses Wegovy for weight loss; was started on for prediabetes and weight management. Last injection was 10/13/22. Gastric emptying study was prior to starting Wegovy. Started Wegovy August 2022. Stomach issues started after her first in 2012. However, She feels the GLP1 has aggravated the symptoms Patient is still on Wegovy Duration of symptoms (months): Started after second in 2013, abdominal pain, N/V Weight changes in last 3 months: Lost 12 lbs GERD: Yes, heartburn, regurgitation, on Pantoprazole daily, sometimes helps Dysphagia: No Bowel Movements: Constipation on average has about 2 BMs per week started Motegrity 2 weeks ago - not helping per patient Pain: Intermittent mid abdominal pain worse with eating and if needing to have a BM, just to the right of umbilicus, worse right before BM and with eating Narcotics: No Smoking/Vaping: No THC: No Previous surgery: x3 Previous Feeding tube(s): No Date of Last EGD: 08/31/2022 EGD with Botox: No - If so, how long did it last: NA Exercise: Cardio a couple of times per week 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 nausea 5 2. retching 3 3. vomiting 5 4. stomach fullness 4 5. not able to finish a normal-sized meal 5 6. feeling excessively full after meals 5 7. loss of appetite 5 8. bloating (feeling like you need to loosen your clothes) 3 9. stomach or belly visibly larger 2 GCSI - 3.86 CGSI Score: 3.67 10/17/2022 Scale (0-none; 1-very mild; 2-mild; 3-moderate; 4-severe; 5-very severe) PAST HISTORY PAST MEDICAL HISTORY Diagnosis Date Asthma Bipolar disorder (HCC) Diverticulitis 2017 IBS (irritable bowel syndrome) PAST SURGICAL HISTORY Procedure Laterality Date SECTION HX COLONOSCOPY 04/2018 IBS-c FAMILY HISTORY Problem Relation Age of Onset Colon Cancer Maternal Grandfather started in the kidney Social History Tobacco Use Smoking status: Never Smokeless tobacco: Never Vaping Use Vaping Use: Never used Substance Use Topics Alcohol use: Yes Comment: socially Drug use: Never Current Outpatient Medications on File Prior to Visit Medication Sig prucalopride 2 mg tablet (MOTEGRITY) Take 1 tablet (2 mg) by mouth once daily. pantoprazole DR (PROTONIX) 40 mg tablet Take 1 tablet by mouth twice daily before meals for 14 days. lisdexamfetamine (VYVANSE) 10 mg capsule Take 10 mg by mouth once daily. pantoprazole DR (PROTONIX) 40 mg tablet Take 1 tablet by mouth once daily. baclofen (LIORESAL) 10 mg tablet buPROPion SR (ZYBAN SR; WELLBUTRIN SR) 150 mg 12 hr tablet doxepin HCl (DOXEPIN ORAL) PREMARIN vaginal cream TRELEGY ELLIPTA 100-62.5-25 mcg inhalation powder methylphenidate LA (RITALIN LA) 20 mg 24 hr capsule TAKE 1 CAPSULE BY MOUTH EVERY DAY IN THE MORNING FOR 30 DAYS cariprazine (VRAYLAR) 4.5 mg capsule 1 capsule. ALPRAZolam (XANAX) 0.25 mg tablet Take 0.25 mg by mouth twice daily. SPRINTEC 0.25-35 mg-mcg per tablet ondansetron orally disintegrating (ZOFRAN ODT) 8 mg disintegrating tablet DISSOLVE 1 TABLET ON THE TONGUE 3 TIMES A DAY NEEDED cariprazine (VRAYLAR) 3 mg cap Take by mouth once daily. Current Facility-Administered Medications on File Prior to Visit Medication lidocaine (PF) 10 mg/mL (1 %) 1-2 mg injection (XYLOCAINE) NaCl 0.9% iv infusion REVIEW OF SYSTEMS: General: Weight loss 12 lbs Neuro: No Hx of stroke or seizures Respiratory: Asthma Cardiovascular: Positive for: nothing GI: See HPI : UTI < 6 weeks (date) 10/22/2022, Nephrolithiasis IN PROCESS INSPECTOR: Negative for abnormal vaginal bleeding, abnormal vaginal discharge. : Denies Endocrine: No history of diabetes. Has not taken steroids within the past 30 days. No history of endocrinological symptoms or problems. Hematology: No history of bleeding or clotting disorder. Pt is not taking anti-coagulation or platelet medications. No history of hematological symptoms or problems. Oncology: No history of CA metastasis, chemo within 30 days, or radiotherapy within 90 days. Has not lost 10% of body wt in 6 months. No history of oncological symptoms or problems. Psych: Anxiety, Depression, Bipolar disorder, ADHD Musculoskeletal: Back pain Skin: Negative for lesions, rash and itching. Physical Exam BP 141/97 (BP Site: Right Arm, BP Position: Sitting, BP Cuff Size: Regular Adult) Pulse 100 Ht 157.5 cm (5' 2 ) Wt 71 kg (156 lb 8.4 oz) BMI 28.63 kg/m Gen - NAD Cervical - No Cervical LN, normal ROM HEENT - Anicteric sclera, MMM CV - RRR Pulm - CTAB Abd - Soft, ND, NT Ext - No LE Edema documented in this encounter [facility] 10-18-2022 Miscellaneous Notes Images from the original note were not included. Maria Dolores Corey DO P Sp Ddsi Clinical Pool Please ask her to see IN PROCESS INSPECTOR to r/o endometriosis there was a very slight abnormal wave (not strong) suggesting its possible Called and spoke with the patient and relayed providers message. documented in this encounter [facility] 10-18-2022 Miscellaneous Notes PA initiated via Mobile Experience. Await response. Covered: Retail, Mail Order Unknown: Specialty, Long-Term Care Group ID: [id number] Group name: BIN: [id number] PCN: [id number] documented in this encounter [facility] 10-18-2022 History of Present illness Narrative Images from the original note were not included. documented in this encounter [facility] 10-17-2022 Nurse Note EGG completed. Able to drink the 500 ml of water without any difficulty. documented in this encounter [facility] 09-12-2022 Note HNO ID: [id number] Author: RT Amber(R) Service: Nuclear Medicine Author Type: International Specialist Type: Progress Notes Filed: 09/12/2022 2:46 PM Note Text: RADIOLOGY SERVICE PROGRESS NOTE SERVICE DATE: 09/12/2022 SERVICE TIME: 2:45 PM PATIENT IDENTITY VERIFICATION COMPLETED USING TWO (2) STANDARD IDENTIFIERS: Name and Date of confirmed by patient verbally FALL SCREENING: Has the patient had 2 falls in the last year or 1 fall with injury or currently using an Ambulatory Assistive Device (Walker, Cane, Wheelchair, Crutches, etc.)? No PATIENT GENDER DATA: .female : No ALLERGIES: Reviewed and unchanged MEDICATIONS REVIEWED: Not applicable PATIENT RELEVANT IMPLANT DATA REVIEWED: Not Applicable CREATININE: Creatinine Date Value Ref Range Status 04/12/2019 0.71 0.58 - 0.96 mg/dL Final eGFR-All Other Races Date Value Ref Range Status 04/12/2019 >60 . Final Comment: eGFR (Estimated GFR) Units of measure: mL/min/1.73 meters squared eGFR is derived from the reexpressed MDRD Study equation using the following parameters: serum creatinine, age, gender and race. The creatinine assay has been calibrated to be traceable to IDMS. An eGFR <60 mL/min/1.73m2 for >3 months is consistent with chronic kidney disease. Refer to KDOQI guidelines for clinical interpretation. In patients with unstable renal function, e.g. those with acute kidney injury, the eGFR may not accurately reflect actual GFR. eGFR- Date Value Ref Range Status 04/12/2019 >60 Final P.O.C.T. RESULTS: N/A September 12, [address] PERFORMED: No IV SITE: NM only - not applicable, oral or physician administered agents given to patient POST EXAM PIV STATUS: Not applicable PROCEDURE TYPE: NM GET: 1.1 mCi Tc99m SULFUR COLLOID was administered orally via 4 ounces of Egg Beaters,2 pieces of toast, 1 ounce of jelly with 8 ounces of water orally ADMINISTRATION TIME: 10:11AM PATIENT DISCHARGED TO: Ambulatory patient, left [place] department area. A Diagnostic radioactive procedure has taken place, with no further precautions necessary other than routine body substance precautions. More information regarding radiation safety can be found using this link: [email or web address] SIGNATURE: Shivani Vasquez, RT(R) PATIENT NAME: Belgica Harper DATE: September 12, 2022 TIME: 2:45 PM PAGER/CONTACT #: [facility] 09-12-2022 History of Present illness Narrative RADIOLOGY SERVICE PROGRESS NOTE SERVICE DATE: 09/12/2022 SERVICE TIME: 2:45 PM PATIENT IDENTITY VERIFICATION COMPLETED USING TWO (2) STANDARD IDENTIFIERS: Name and Date of confirmed by patient verbally FALL SCREENING: Has the patient had 2 falls in the last year or 1 fall with injury or currently using an Ambulatory Assistive Device (Walker, Cane, Wheelchair, Crutches, etc.)? No PATIENT GENDER DATA: .female : No ALLERGIES: Reviewed and unchanged MEDICATIONS REVIEWED: Not applicable PATIENT RELEVANT IMPLANT DATA REVIEWED: Not Applicable CREATININE: Creatinine Date Value Ref Range Status 04/12/2019 0.71 0.58 - 0.96 mg/dL Final eGFR-All Other Races Date Value Ref Range Status 04/12/2019 >60 . Final Comment: eGFR (Estimated GFR) Units of measure: mL/min/1.73 meters squared eGFR is derived from the reexpressed MDRD Study equation using the following parameters: serum creatinine, age, gender and race. The creatinine assay has been calibrated to be traceable to IDMS. An eGFR <60 mL/min/1.73m2 for >3 months is consistent with chronic kidney disease. Refer to KDOQI guidelines for clinical interpretation. In patients with unstable renal function, e.g. those with acute kidney injury, the eGFR may not accurately reflect actual GFR. eGFR- Date Value Ref Range Status 04/12/2019 >60 Final P.O.C.T. RESULTS: N/A September 12, [address] PERFORMED: No IV SITE: NM only - not applicable, oral or physician administered agents given to patient POST EXAM PIV STATUS: Not applicable PROCEDURE TYPE: NM GET: 1.1 mCi Tc99m SULFUR COLLOID was administered orally via 4 ounces of Egg Beaters,2 pieces of toast, 1 ounce of jelly with 8 ounces of water orally ADMINISTRATION TIME: 10:11AM PATIENT DISCHARGED TO: Ambulatory patient, left [place] department area. A Diagnostic radioactive procedure has taken place, with no further precautions necessary other than routine body substance precautions. More information regarding radiation safety can be found using this link: [email or web address] SIGNATURE: RT Amber(R) PATIENT NAME: Belgica Harper DATE: September 12, 2022 TIME: 2:45 PM PAGER/CONTACT #: documented in this encounter [facility] 08-24-2022 Miscellaneous Notes Lm to confirm procedure for 08-31-22 documented in this encounter [facility] 07-05-2022 Hospital Discharge instructions Patient Education 07/05/2022 08:39:29 EU - Cystoscopy with Urethral Dilation Discharge Instructions (CUSTOM) Cystoscopy with Urethral Dilation Voiding after the procedure: there may be some pain, urethral bleeding, burning, urgency, frequency and blood tinged urine following the procedure. These symptoms usually resolve within 2-5 days. Drink the amount of fluid it takes to keep the urine pink to yellow or clear in color. Drinking enough water and fluids will help to ease any discomfort after your procedure. If you are having problems that seem out of the ordinary, please call. If unable to contact your physician and you feel it is an emergency, go to the nearest emergency room or call 911 Diet you may resume your normal diet. Activity you may resume your normal activities Call if you have a fever over 100 degrees Follow Up Care 06/29/2022 09:09:39 With:Madhuri MISHRA Address: [facility] [address] , [place] [address]- Business (1) When:11/04/2022 08:39:10 Comments:With a stone metabolic work-up [facility] 06-23-2022 Miscellaneous Notes Confirmed procedure for 06-30-22 documented in this encounter [facility] 06-15-2022 Note HNO ID: [id number] Author: Monet Osei RDMS Service: Abstract Author Type: Form Layer Type: Progress Notes Filed: 06/15/2022 8:09 PM Note Text: Radiology Service Progress Note PATIENT NAME: Belgica Harper DATE OF SERVICE: June 15, 2022 TIME: 8:08 PM PATIENT IDENTITY VERIFICATION COMPLETED USING TWO (2) IDENTIFIERS: Name and Date of confirmed by patient verbally and Name and Date of confirmed by identification band. FALL SCREENING: Has the patient had 2 falls in the last year or 1 fall with injury or currently using an Ambulatory Assistive Device (Walker, Cane, Wheelchair, Crutches, etc.)? No PATIENT GENDER DATA: Female. status: Unknown status: N/A PATIENT RELEVANT IMPLANT DATA REVIEWED: Not Applicable RADIOLOGY DEPARTMENT: Ultrasound PERIPHERAL IV DATA: Not applicable SIGNED BY: Monet Osei RDMS June 15, 2022 8:08 PM [facility] 06-15-2022 History of Present illness Narrative Radiology Service Progress Note PATIENT NAME: Belgica Harper DATE OF SERVICE: June 15, 2022 TIME: 8:08 PM PATIENT IDENTITY VERIFICATION COMPLETED USING TWO (2) IDENTIFIERS: Name and Date of confirmed by patient verbally and Name and Date of confirmed by identification band. FALL SCREENING: Has the patient had 2 falls in the last year or 1 fall with injury or currently using an Ambulatory Assistive Device (Walker, Cane, Wheelchair, Crutches, etc.)? No PATIENT GENDER DATA: Female. status: Unknown status: N/A PATIENT RELEVANT IMPLANT DATA REVIEWED: Not Applicable RADIOLOGY DEPARTMENT: Ultrasound PERIPHERAL IV DATA: Not applicable SIGNED BY: Monet Osei RDMS June 15, 2022 8:08 PM documented in this encounter [facility] 06-14-2022 Miscellaneous Notes Images from the original note were not included. LM for Milly to schedule follow up US And to call me with any questions. ----- Message from Carol Winn MD sent at 06/14/2022 9:35 AM EST ----- Milly, I reviewed the ultrasound done in November This hypodensity was felt to be a benign cyst I will order a follow up ultrasound to be done This is reassuring Carol Winn MD 06/14/2022 9:35 AM EST Back to Top Milly, I reviewed the ultrasound done in November This hypodensity was felt to be a benign cyst I will order a follow up ultrasound to be done This is reassuring Carol Winn MD 06/14/2022 9:29 AM EST Bc Atkins, the CT scan showed Fatty liver No signs of advanced liver disease There is 2.3 cm right lobe hepatic hypodensity, progressed in size from the prior study Please Wilma check if Milly had recent Ultrasound at [facility] There is 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 I recommend seeing a urologist to follow up on this There is small nodule in the right middle lobe nodule. stable from prior study of 04/11/2019. This can be followed by the patient's PCP I recommend ultrasound to further evaluate this hypodensity mentioned on the CT scan Will consider liver MRI pending the ultrasound results and referring the patient to hepatobiliary surgeon if needed pending results documented in this encounter [facility] 06-10-2022 History of Present illness Narrative Radiology Service Progress Note PATIENT NAME: Belgica Harper DATE OF SERVICE: June 10, 2022 TIME: 10:01 AM PATIENT IDENTITY VERIFICATION COMPLETED USING TWO (2) IDENTIFIERS: Name and Date of confirmed by patient verbally. FALL SCREENING: Has the patient had 2 falls in the last year or 1 fall with injury or currently using an Ambulatory Assistive Device (Walker, Cane, Wheelchair, Crutches, etc.)? No PATIENT GENDER DATA: Female. status: : No status: NO. PATIENT RELEVANT IMPLANT DATA REVIEWED: Not Applicable RADIOLOGY DEPARTMENT: CT; Exam(s) Completed: Abdomen/Pelvis PERIPHERAL IV DATA: Not applicable SIGNED BY: RT Germain(Aroldo) June 10, 2022 10:01 AM documented in this encounter [facility] 05-27-2022 Note HNO ID: [id number] Author: RT Nakita(R) Service: Radiology Author Type: Technologist Type: Progress Notes Filed: 05/27/2022 12:31 PM Note Text: Radiology Service Progress Note PATIENT NAME: Belgica Harper DATE OF SERVICE: May 27, 2022 TIME: 12:29 PM PATIENT IDENTITY VERIFICATION COMPLETED USING TWO (2) IDENTIFIERS: Name and Date of confirmed by patient verbally. FALL SCREENING: Has the patient had 2 falls in the last year or 1 fall with injury or currently using an Ambulatory Assistive Device (Walker, Cane, Wheelchair, Crutches, etc.)? No PATIENT GENDER DATA: Female. status: : No status: NO. PATIENT RELEVANT IMPLANT DATA REVIEWED: Not Applicable RADIOLOGY DEPARTMENT: General X-ray: Exam(s) Completed: Chest X-Ray PERIPHERAL IV DATA: Not applicable SIGNED BY: RT Nakita(R) May 27, 2022 12:29 PM [facility] 05-27-2022 History of Present illness Narrative Radiology Service Progress Note PATIENT NAME: Belgica Harper DATE OF SERVICE: May 27, 2022 TIME: 12:29 PM PATIENT IDENTITY VERIFICATION COMPLETED USING TWO (2) IDENTIFIERS: Name and Date of confirmed by patient verbally. FALL SCREENING: Has the patient had 2 falls in the last year or 1 fall with injury or currently using an Ambulatory Assistive Device (Walker, Cane, Wheelchair, Crutches, etc.)? No PATIENT GENDER DATA: Female. status: : No status: NO. PATIENT RELEVANT IMPLANT DATA REVIEWED: Not Applicable RADIOLOGY DEPARTMENT: General X-ray: Exam(s) Completed: Chest X-Ray PERIPHERAL IV DATA: Not applicable SIGNED BY: RT Nakita(R) May 27, 2022 12:29 PM documented in this encounter [facility] 05-27-2022 History of Present illness Narrative Chief Compliant: Belgica Harper, 31 year old female, presents in the office today for fatty liver HPI: Belgica Harper is a 31 year old female who presents for fatty liver Few months of right sided abd pain Pain is RLQ and RUQ Started few months ago Daily Sharp Worse after eating No relation to defecation No CT scan was done + nausea and vomiting This may occur up to 3 times a week Worse in the morning and after eating Has a bowel movement every 1-2 days Stool is formed No rectal bleeding Saw Dr. Erwin Champion who did fibroscan . No results are available yet Previous OV recently diagnosed by a local GI physician with steatosis and pulmonary fibrosis, Previous Procedures: Previous Imagin12-10-2021 RUQ US 1. Hepatic steatosis and a liver cyst. There are no gallstones or biliary dilatation. ALLERGIES Allergen Reactions Iv Contrast [Iodine] Swelling, Itching Omnipaque 300: Patient experienced itching on her neck and left side of her face. Also, pt complained of tongue feeling itchy and feels like something is stuck in her throat . Patient received diphenhydramine (Benadryl) Omnipaque [Iohexol] Itching ALPRAZolam (XANAX) 0.25 mg tablet Take 0.25 mg by mouth twice daily. SPRINTEC 0.25-35 mg-mcg per tablet ondansetron orally disintegrating (ZOFRAN ODT) 8 mg disintegrating tablet DISSOLVE 1 TABLET ON THE TONGUE 3 TIMES A DAY NEEDED cariprazine (VRAYLAR) 3 mg cap Take by mouth once daily. HISTORIES: FAMILY HISTORY Problem Relation Age of Onset Colon Cancer Maternal Grandfather started in the kidney PAST MEDICAL HISTORY Diagnosis Date Asthma Bipolar disorder (HCC) Diverticulitis 2017 IBS (irritable bowel syndrome) PAST SURGICAL HISTORY Procedure Laterality Date SECTION HX COLONOSCOPY 04/2018 IBS-c Social History Tobacco Use Smoking status: Never Smokeless tobacco: Never Vaping Use Vaping Use: Never used Substance Use Topics Alcohol use: Yes Comment: socially Drug use: Never REVIEW OF SYSTEMS: General:Fatigue Respiratory: SOB at night while laying down. Snores at night Cardiovascular: Negative for chest pain, leg swelling or palpitations Gastrointestinal: See HPI Genitourinary: No history of dysuria, frequency or incontinence Musculoskeletal: Negative for joint pain or swelling, back pain or muscle pain Neurologic:Negative for focal numbness or weakness, headaches and dizziness or syncope. Skin:Negative for lesions, rash, and itching Psychiatric: Positive for sleep disturbance: and anxiety: Hematologic/Lymph:Negative for prolonged bleeding, bruising easily or swollen nodes Endocrine: Negative for cold or heat intolerance, polyuria, polydipsia and goiter PHYSICAL EXAMINATION: There were no vitals taken for this visit. General appearance: Well appearing, alert, in no acute distress, well-hydrated, well nourished. Skin: Skin color, texture, turgor normal, no suspicious rashes or lesions Head: Normocephalic, no masses, lesions, tenderness or abnormalities Eyes: Anicteric sclera. Pupils are equally round and reactive to light. Extraocular movements are intact. Ears: External ears normal, canals clear Nose/Sinuses: Nares normal, septum midline, mucosa normal, no drainage or sinus tenderness Neck: Supple, no adenopathy; thyroid symmetric, normal size, no bruits Lungs: Lungs clear to auscultation. No wheezing, rhonchi, rales Heart: RRR without murmur, gallop, or rubs. No ectopy Abdomen: Abdomen soft, mild RLQ tenderness Bowel sounds normal. No masses, organomegaly Extremities: No deformities, edema, skin discoloration, clubbing or cyanosis. Good capillary refill. Musculoskeletal: No joint swelling, deformity, or tenderness Neuro:WNL ASSESSMENT/PLAN: 1. Fatty liver - ICD9: 571.8, ICD10: K76.0 (primary diagnosis) Was seen by Dr. Hylton locally Will obtain labs and fibroscan results She had Nausea and vomiting with statin Couldn't tolerate metformin due to nausea/vomiting and diarrhea We discussed the need to exercise regularly She tried insanity exercise in the past without great results We discussed brisk walking daily that will bring her HR above 100 Continue weight lifting Obtain records She can still follow up with Dr. Hylton who is quality reviewer We discussed seeing endocrinology to help with weight loss and insulin resistance We also discussed cutting back on ETOH to one drink a week (currently 3-4 drinks a week) 2. Bilious vomiting with nausea - ICD9: 787.04, ICD10: R11.14 Will start with imaging EGD Will consider gastric emptying scan and HIDA scan if negative work up - CT ABD/PEL WO IVCON - EGD DIAGNOSTIC 3. Right sided abdominal pain - ICD9: 789.09, ICD10: R10.9 + RLQ tenderness on exam H/o diverticulitis Will start with imaging - CT ABD/PEL WO IVCON Procedure was discussed with the patient including risks of oversedation, bleeding, and perforation. Patient agreed to proceed. 5. History of diverticulitis - ICD9: V12.70, ICD10: Z87.19 Gets an episode almost yearly No CT scan PCP treats with cipro and flagyl Last episode was in Feb 2022 6. SOB (shortness of breath) - ICD9: 786.05, ICD10: R06.02 At night when laying down + snoring Will start with CXR Patient will benefit from sleep study to rule out SILVER and even TTE pending the CXR results - XR CHEST 2V FRONTAL/LAT Carol Winn MD Follow Up: No follow-ups on file. documented in this encounter [facility] 05-03-2022 Evaluation note Encounter Date Diagnosis Assessment Notes Apr, EGNLISH (nonalcoholic steatohepatiti s) (ICD-10 - K75.81) Apr, Abnormal ultrasound (ICD-10 - R93.89) Apr, Elevated liver enzymes (ICD-10 - R74.8) Apr, Liver cyst (ICD-10 - K76.89) [facility] Other Evaluation + Plan note Future Appointments Appointment Date:06/30/2022 10:00:00 AM Scheduled Provider: [facility] Appointment Type:Urology CALL PAT FT Appointment Date:07/05/2022 08:15:00 AM Scheduled Provider: Location:[facility] Appointment Type:Urology FT Diagnostic Tests Pending * Urine Culture 06/29/22 [facility] + Plan note Future Appointments Appointment Date:11/07/2022 03:15:00 PM Scheduled Provider:Madhuri MISHRA MD Location:[facility] Appointment Type:URO Office Visit [facility] noteNo assessment information available [facility] Work Phone: Evaluation note* Diagnosis Fatty liver- Primary Other chronic nonalcoholic liver disease Bilious vomiting with nausea Right sided abdominal pain Abdominal pain, unspecified site Nausea Nausea alone History of diverticulitis SOB (shortness of breath) Shortness of breath [facility]* Diagnosis Liver lesion- Primary Other specified disorders of liver documented in this encounter [facility] note* Diagnosis Gastroparesis- Primary [facility]* Diagnosis Gastroparesis- Primary documented in this encounter [facility] note* Diagnosis Irritable bowel syndrome with constipation- Primary Irritable bowel syndrome [facility]* Diagnosis Gastroparesis [facility] Diagnosis Gastroparesis- Primary documented [facility]* Diagnosis SOB (shortness of breath) Shortness of breath documented [facility]* Diagnosis Liver lesion Other specified disorders of liver [facility]* Diagnosis Elevated LFTs Other abnormal blood chemistry documented in this encounter [facility] note* Diagnosis Bilious vomiting with nausea Right sided abdominal pain Abdominal pain, unspecified site Nausea Nausea alone documented in this encounter [facility] note* Diagnosis Nausea Nausea alone documented [facility]* Diagnosis Gastroparesis- Primary documented in this encounter [facility] general Narrative - Reported* Type Description Date Medical History Anxiety Medical History Depression Medical History Diverticulosis Medical History bipolar Surgical History C section Surgical History hysterectomy Hospitalization History see above Hospitalization History diverticulitis 01/24/18 Hospitalization History NONE ON THE LAST YEAR [facility] Other Hospital course Narrative No data available for this section [facility] Dis[facility] instructions No data available for this section [facility] No data available for this section [facility] for referral (narrative)* Outpatient Procedure (Routine) - Authorized Specialty Diagnoses / Procedures Referred By Norma t Referred To Contact [facility] Diagnoses Bilious vomiting with nausea Right sided abdominal pain Procedures EGD DIAGNOSTIC ESOPHAGOGASTRODUODENOSC OPY TRANSORAL [place] [address] [place] [address] [facility] [address] [place] [address] Referral ID Status Reason Start Date Expiration Date Visits Requested Visits Authorized [id number] Authorized Auto-Generat ed Referral 05/27/2022 05/27/2023 1 1 * MRI/CT (Routine) - Authorized Specialty Diagnoses / Procedures Referred By Norma kennedy Referred To Contact CT IMAGING Diagnoses Bilious vomiting with nausea Right sided abdominal pain Nausea Procedures CT ABD/PEL WO IVCON CT ABD & P[place] [address] [place] [address] Ct Imaging Referral ID Status Reason Start Date Expiration Date Visits Requested Visits Authorized [id number] Authorized Auto-Generat ed Referral 05/27/2022 06/26/2023 1 1 [facility] for referral (narrative)* Diagnostic Procedure Only (Routine) - Authorized Specialty Diagnoses / Procedures Referred By Norma t Referred To Contact [facility] IMAGING Diagnoses Liver lesion Procedures US ABD RT UPPER QUADRANT US ABDOMINAL REAL [place] W/[place] [address] [place] [address] [facility] Imaging Referral ID Status Reason Start Date Expiration Date Visits Requested Visits Authorized [id number] Authorized Auto-Generat ed Referral 06/14/2022 07/14/2023 1 1 [facility] for referral (narrative)* Diagnostic Procedure Only (Routine) - Closed Specialty Diagnoses / Procedures Referred By Contac t Referred To Contact US IMAGING Diagnoses Liver lesion Procedures US ABD RT UPPER QUADRANT US ABDOMINAL REAL [place] W/[place] [address] [place] [address] [place] [address] Referral ID Status Reason Start Date Expiration Date V isits Requested Visits Authorized [id number] Closed Auto-Generate d Referral 06/14/2022 07/14/2023 1 1 [facility] for referral (narrative)* Diagnostic Procedure Only (Routine) - Closed Specialty Diagnoses / [facility] To Contact [facility] Diagnoses Elevated LFTs Procedures US ABD RT UPPER QUADRANT US ABDOMINAL REAL TIME W/[place] [address] [place] [address] Us Imaging [id number] Referral ID Status Reason Start Date Expiration Date V isits Requested Visits Authorized [id number] Closed Auto-Generate d Referral 11/24/2021 12/24/2022 1 1 T [facility] for referral (narrative)* Diagnostic Procedure Only (Routine) - Closed Specialty Diagnoses / Procedures [facility] Referred To Contact [facility] Diagnoses Nausea Procedures NM GASTRIC EMPTYING SOLID [place]STRIC [place] [address] [place] [address] Molecular [facility] Functional Imaging [address] [place] [address] Referral ID Status Reason Start Date Expiration Date V isits Requested Visits Authorized [id number] Closed Auto-Generate d Referral 08/31/2022 09/30/2023 1 1 [facility] for referral (narrative)* Outpatient Procedure (Routine) - Authorized Specialty Diagnoses / Procedures [facility] Diagnoses Gastroparesis Procedures ECG COMPLETE ECG ROUTINE ECG W/LEAST 12 LDS W/I&R Solo Mora MD [id number] [facility] [place] [id number] Referral ID Status Reason Start Date Expiration Date Visits Requested Visits Authorized [id number] Authorized Auto-Generat ed Referral 11/02/2023 11/01/2024 1 1 [facility] for visit NarrativePATIENT HERE AT THE REQUEST OF DR. HAGEN FOR ENGLISH & ABNORMAL US. ULTRASOUND AND LABS IN REFERRAL. PATIENT STATES SHE FEELS LETHARGIC & HAS OCCASIONAL ABDOMINAL PAINMandan Path Logic Other Reason for visit Narrative* Diagnostic Procedure Only (Routine) - Closed Specialty Diagnoses / [facility] Referred To Contact [facility] IMAG[facility] Diagnoses Liver lesion Procedures US ABD RT UPPER QUADRANT US ABDOMINAL REAL [place] W/[place] [address] [place] [address] Us Imaging [id number] Referral ID Status Reason Start Date Expiration Date V isits Requested Visits Authorized [id number] Closed Auto-Generate d Referral 06/14/2022 07/14/2023 1 1 [facility] for visit Narrative* Diagnostic Procedure Only (Routine) - Closed Specialty Diagnoses / Procedures [facility] Referred To Contact [facility] IMAG[facility] Diagnoses Elevated LFTs Procedures US ABD RT UPPER QUADRANT US ABDOMINAL REAL TIME W/[place] [address] [place] [address] Us Imaging [facility] Referral ID Status Reason Start Date Expiration Date V isits Requested Visits Authorized [id number] Closed Auto-Generate d Referral 11/24/2021 12/24/2022 1 1 [facility] for visit Narrative* Diagnostic Procedure Only (Routine) - Closed Specialty Diagnoses / Procedures Referred By Contac t Referred To Contact MOLECULAR & FUNCTIONAL IMAGING Diagnoses Nausea Procedures NM GASTRIC EMPTYING SOLID GASTRIC [place] [address] [place] [address] Molecular & Functional Imaging [address] [place], [place] [address] Referral ID Status Reason Start Date Expiration Date V isits Requested Visits Authorized [id number] Closed Auto-Generate d Referral 08/31/2022 09/30/2023 1 1 [facility] Summary Purpose Family History No Family History Records FoundNo Family History Records FoundNo Family History Records FoundNo Family History Records FoundNo Family History Records FoundNo Family History Records FoundNo Family History Records FoundNo Family History Records FoundNo Family History Records FoundNo Family History Records Found Advance Directives No Advanced Directives Records Found Advance Directive Response Recorded Date/ Time Advance Directives No December 10, 2018 10:13am Advance Directive Response Recorded Date/ Time Advance Directives No December 10, 2018 11:13am Chief Complaint and Reason for Visit Chief Complaint ENGLISH, Elevated Liver Enyzmes Chief Complaint R93.89 Reason for Referral Specialty Diagnoses / Procedures Referred By Norma t Referred To Contact CT IMAGING Diagnoses Bilious vomiting with nausea Right sided abdominal pain Nausea Procedures CT ABD/PEL WO IVCON CT ABD & P[place] [address] [place] [address] [address] [facility] [place] [address] Referral ID Status Reason Start Date Expiration Date V isits Requested Visits Authorized [id number] Closed Auto-Generate d Referral 05/27/2022 06/26/2023 1 1 Additional Source Comments INFORMATION SOURCE (unrecogn ized section and content) DATE CREATED AUTHOR 11/09/2018 [facility] DATE CREATED AUTHOR AUTHOR'S ORGANIZ ATION 08/23/2021 [facility] DATE CREATED AUTHOR AUTHOR'S ORGANIZ ATION 07/17/2022 [facility] DATE CREATED AUTHOR AUTHOR'S ORGANIZ ATION 10/29/2022 [facility] DATE CREATED AUTHOR AUTHOR'S ORGANIZ ATION 10/31/2022 [facility] DATE CREATED AUTHOR AUTHOR'S ORGANIZ ATION 03/22/2023 [facility] DATE CREATED AUTHOR AUTHOR'S ORGANIZ ATION 03/28/2023 [facility] DATE CREATED AUTHOR AUTHOR'S ORGANIZ ATION 09/21/2023 Christo Longoria [facility] DATE CREATED AUTHOR AUTHOR'S ORGANIZ ATION 10/03/2023 [facility] EPIC DATE CREATED AUTHOR AUTHOR'S ORGANIZ ATION 11/08/2023 [facility] Care Teams (unrecognized sec tion and content) Team Status: Active Member Role Status Dates Giovani Hagen MD Primary Care Provider Active Team Status: Inactive Member Role Status Dates Ewrin Hylton MD Attending Provider Active Giovani Hagen MD Primary Care Provider Active Scorekeeper Relationship Specialty Start Date End Date Giovani Hageny [address] [facility] [address] [place] [address] PCP - General Family Medicine 03/27/19 Scorekeeper Relationship Specialty Start Date End Date Giovani Hagenalay [address] [facility] [address] [place] [address] PCP - General Family Medicine 03/27/19 Scorekeeper Relationship Specialty Start Date End Date Giovani Hagenalay [address] [facility] [address] [place] [address] PCP - General Family Medicine 03/27/19 Scorekeeper Relationship Specialty Start Date End Date Giovani Hagenalay [address] [place] [address] [place] [address] PCP - General Family Medicine 03/27/19 Scorekeeper Relationship Specialty Start Date End Date Giovani Hagenalay [address] [facility] [address] [place] [address] PCP - General Family Medicine 03/27/19 Scorekeeper Relationship Specialty Start Date End Date Can[place]Giov[place] lunaalay [address] [place] [address] [place] [address] PCP - General Family Medicine 03/27/19 Scorekeeper Relationship Specialty Start Date End Date Giovani Hagen [address] [place] [address] [place] [address] PCP - General Family Medicine 03/27/19 Scorekeeper Relationship Specialty Start Date End Date Giovani Hagen [address] [place] [address] [place] [address] PCP - General Family Medicine 03/27/19 Scorekeeper Relationship Specialty Start Date End Date Giovani Hagen [address] [place] [address] [place] [address] PCP - General Family Medicine 03/27/19 Scorekeeper Relationship Specialty Start Date End Date Giovani Hagen [address] [place] [address] [place] [address] PCP - General Family Medicine 03/27/19 Scorekeeper Relationship Specialty Start Date End Date Giovani Hagen [address] [place] [address] [place] [address] PCP - General Family Medicine 03/27/19 Scorekeeper Relationship Specialty Start Date End Date Giovani Hagen [address] [place] [address] [place] [address] PCP - General Family Medicine 03/27/19 Scorekeeper Relationship Specialty Start Date End Date Giovani Hagen [address] [place] [address] [place] [address] PCP - General Family Medicine 03/27/19 Scorekeeper Relationship Specialty Start Date End Date Giovani Hagen [address] [place] [address] [place] [address] PCP - General Family Medicine 03/27/19 Scorekeeper Relationship Specialty Start Date End Date Giovani Hagen MD [address] [facility] [address] [place] [address] PCP - General Family Medicine 03/27/19 Scorekeeper Relationship Specialty Start Date End Date Giovani Hagen MD [address] [place] [address] [place] [address] PCP - General Family Medicine 03/27/19 Scorekeeper Relationship Specialty Start Date End Date Giovani Hagen MD [address] [place] [address] [place] [address] PCP - General Family Medicine 03/27/19 Scorekeeper Relationship Specialty Start Date End Date Giovani Hagen MD [address] [place] [address] [place] [address] PCP - General Family Medicine 03/27/19 Scorekeeper Relationship Specialty Start Date End Date Giovani Hagen MD [address] [place] [address] [place] [address] PCP - General Family Medicine 03/27/19 Scorekeeper Relationship Specialty Start Date End Date Giovani Hagen MD [address] [place] [address] [place] [address] PCP - General Family Medicine 03/27/19 Scorekeeper Relationship Specialty Start Date End Date Giovani Hagen MD [address] [place] [address] [place] [address] PCP - General Family Medicine 03/27/19 Scorekeeper Relationship Specialty Start Date End Date Giovani Hagen MD [address] [place] [address] [place] [address] PCP - General Family Medicine 03/27/19 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 Relationship Specialty Start Date End Date Giovani Hagen MD [address] [place] [address] [place] [address] PCP - General Family Medicine 03/27/19 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 Relationship Specialty Start Date End Date Giovani Hagen MD [address] [place] [address] PCP - General Family Medicine 03/27/19 Source Comments (unrecognize d section and content) In the event this informatio n is protected by the Federal Confidentiality of Alcohol and Drug Abuse Patient Records regulations: The Federal rules restrict any use of the information to criminally investigate or prosecute any alcohol or drug abuse patient.[facility] the event this information is protected by the Federal Confidentiality of Alcohol and Drug Abuse Patient Records regulations: The Federal rules restrict any use of the information to criminally investigate or prosecute any alcohol or drug abuse patient.[facility] the event this information is protected by the Federal Confidentiality of Alcohol and Drug Abuse Patient Records regulations: The Federal rules restrict any use of the information to criminally investigate or prosecute any alcohol or drug abuse patient.[facility] the event this information is protected by the Federal Confidentiality of Alcohol and Drug Abuse Patient Records regulations: The Federal rules restrict any use of the information to criminally investigate or prosecute any alcohol or drug abuse patient.[facility] the event this information is protected by the Federal Confidentiality of Alcohol and Drug Abuse Patient Records regulations: The Federal rules restrict any use of the information to criminally investigate or prosecute any alcohol or drug abuse patient.[facility] the event this information is protected by the Federal Confidentiality of Alcohol and Drug Abuse Patient Records regulations: The Federal rules restrict any use of the information to criminally investigate or prosecute any alcohol or drug abuse patient.[facility] Hospital[facility] the event this information is protected by the Federal Confidentiality of Alcohol and Drug Abuse Patient Records regulations: The Federal rules restrict any use of the information to criminally investigate or prosecute any alcohol or drug abuse patient.[facility] the event this information is protected by the Federal Confidentiality of Alcohol and Drug Abuse Patient Records regulations: The Federal rules restrict any use of the information to criminally investigate or prosecute any alcohol or drug abuse patient.[facility] the event this information is protected by the Federal Confidentiality of Alcohol and Drug Abuse Patient Records regulations: The Federal rules restrict any use of the information to criminally investigate or prosecute any alcohol or drug abuse patient.[facility] Hospital[facility] the event this information is protected by the Federal Confidentiality of Alcohol and Drug Abuse Patient Records regulations: The Federal rules restrict any use of the information to criminally investigate or prosecute any alcohol or drug abuse patient.[facility] Hospital[facility] the event this information is protected by the Federal Confidentiality of Alcohol and Drug Abuse Patient Records regulations: The Federal rules restrict any use of the information to criminally investigate or prosecute any alcohol or drug abuse patient.[facility] Hospital[facility] the event this information is protected by the Federal Confidentiality of Alcohol and Drug Abuse Patient Records regulations: The Federal rules restrict any use of the information to criminally investigate or prosecute any alcohol or drug abuse patient.[facility] Hospital[facility] the event this information is protected by the Federal Confidentiality of Alcohol and Drug Abuse Patient Records regulations: The Federal rules restrict any use of the information to criminally investigate or prosecute any alcohol or drug abuse patient.[facility] Hospital[facility] the event this information is protected by the Federal Confidentiality of Alcohol and Drug Abuse Patient Records regulations: The Federal rules restrict any use of the information to criminally investigate or prosecute any alcohol or drug abuse patient.[facility] Hospital[facility] the event this information is protected by the Federal Confidentiality of Alcohol and Drug Abuse Patient Records regulations: The Federal rules restrict any use of the information to criminally investigate or prosecute any alcohol or drug abuse patient.[facility] Hospital[facility] the event this information is protected by the Federal Confidentiality of Alcohol and Drug Abuse Patient Records regulations: The Federal rules restrict any use of the information to criminally investigate or prosecute any alcohol or drug abuse patient.[facility] Hospital[facility] the event this information is protected by the Federal Confidentiality of Alcohol and Drug Abuse Patient Records regulations: The Federal rules restrict any use of the information to criminally investigate or prosecute any alcohol or drug abuse patient.[facility] Hospital[facility] the event this information is protected by the Federal Confidentiality of Alcohol and Drug Abuse Patient Records regulations: The Federal rules restrict any use of the information to criminally investigate or prosecute any alcohol or drug abuse patient.[facility] Hospital[facility] the event this information is protected by the Federal Confidentiality of Alcohol and Drug Abuse Patient Records regulations: The Federal rules restrict any use of the information to criminally investigate or prosecute any alcohol or drug abuse patient.[facility] HospitalIn the event this information is protected by the Federal Confidentiality of Alcohol and Drug Abuse Patient Records regulations: The Federal rules restrict any use of the information to criminally investigate or prosecute any alcohol or drug abuse patient.[facility] Hospital[facility] the event this information is protected by the Federal Confidentiality of Alcohol and Drug Abuse Patient Records regulations: The Federal rules restrict any use of the information to criminally investigate or prosecute any alcohol or drug abuse patient.[facility] Hospital[facility] the event this information is protected by the Federal Confidentiality of Alcohol and Drug Abuse Patient Records regulations: The Federal rules restrict any use of the information to criminally investigate or prosecute any alcohol or drug abuse patient.[facility] HospitalIn the event this information is protected by the Federal Confidentiality of Alcohol and Drug Abuse Patient Records regulations: The Federal rules restrict any use of the information to criminally investigate or prosecute any alcohol or drug abuse patient.[facility] HospitalIn the event this information is protected by the Federal Confidentiality of Alcohol and Drug Abuse Patient Records regulations: The Federal rules restrict any use of the information to criminally investigate or prosecute any alcohol or drug abuse patient.[facility] HospitalIn the event this information is protected by the Federal Confidentiality of Alcohol and Drug Abuse Patient Records regulations: The Federal rules restrict any use of the information to criminally investigate or prosecute any alcohol or drug abuse patient.[facility] HospitalIn the event this information is protected by the Federal Confidentiality of Alcohol and Drug Abuse Patient Records regulations: The Federal rules restrict any use of the information to criminally investigate or prosecute any alcohol or drug abuse patient.[facility] Reason for Visit (unrecogniz ed section and content) Reason Comments Liver Disease Hepatic Steatosis Reason Comments Radiology CT Reason Comments Results Reason Comments Appointment Reason Comments Gastroparesis EGG test Reason Comments Medication Preauthorization Motegrity Reason Comments Consult Reason Comments Medication Preauthorization PA for [facility] la Specialty Diagnoses / Procedures Referred By Contac t Referred To Contact CT IMAGING Diagnoses Bilious vomiting with nausea Right sided abdominal pain Nausea Procedures CT ABD/PEL WO IVCON CT ABD & PEL[place] W/[place] [address] [place] [address] [place] [address] Referral ID Status Reason Start Date Expiration Date V isits Requested Visits Authorized [id number] Closed Auto-Generate d Referral 05/27/2022 06/26/2023 1 1 Reason Comments Patient Update Referral & Records a re in Care Everywhere Goals (unrecognized section and content) Goals may be documented in a n alternate section FOR RECORDS PERTAINING TO PATIENTS WHO ARE OR HAVE BEEN ENROLLED IN A CHEMICAL DEPENDENCY/SUBSTANCEABUSE PROGRAM, SOME INFORMATION MAY BE OMITTED. This clinical summary was aggregated from multiple sources. Caution should be exercised in using it in the provision of clinical care. This summary normalizes information from multiple sources, and as a consequence, information in this document may materially change the coding, format and clinical context of patient data. In addition, data may be omitted in some cases. CLINICAL DECISIONS SHOULD BE BASED ON THE PRIMARY CLINICAL RECORDS. [facility]. provides no warranty or guarantee of the accuracy or completeness of information in this document.
== END 2023-11-16 16:00 | disposition home or self-care (01) ==
LOC: RAD 15:59
PROVIDERS: PCP Family Medicine; Visit Provider Urology
DX: N20.0 Calculus of kidney (principal)
CPT/HCPCS: 74018

== ENCOUNTER 2023-12-09 08:56 | Outpatient (OUT) | payer OTHER, SELFPAY ==
--- OUTSIDE RECORDS SUMMARY | 2023-12-09 08:58 | XMS_ITS | CCD ---
Author Organization [facility] Care Team Providers Care Group Program Manager Name Role Phone SHIVANI MONTEIRO Referring Unavailable GIOVANI HAGEN Primary Care Unavailable MD Erwin Hylton Attending Provider MD Giovani Hagen Primary Care Provider [phone] Giovani Hagen Primary Care Provider Erwin Hylton Unavailable GIOVANI HAGEN Primary Care Physician [phone] SUREKHA ., DR SIMON Consulting Unavailabl e HIEU, [...] Unavailable MISHRA ., DR DHALIWAL Admitting Unavailable MSIHRA ., DR DHALIWAL Consulting Unavailable HIEU, DR [...] e MISC, DR MCKEON Primary Care Unavailable MARIA DOLORES MOON Unavailable ASAAD, IMAD Consulting Unavailable HIEU, DR [...] Consulting Unavailable MD Erwin Hylton Attending Provider MD Giovani Hagen Primary Care Provider DAKHIL, NOMA [facility] DAKHIL, NOMA Referring Un[facility] Unavailable DAKHIL, NOMA [facility] Un[facility] MARIA DOLORES COREY Referring [facility] Unavailable Asaad, Imad Admitting Unavailable Asaad, Imad Attending [facility]available [facility] Asaad, Imad Admitting Unavailable Asaad, Imad Attending Unavailable [facility] Hieu Giovani FRIEDMAN [facility] Care Provider BLOOD, MARY Culver Admitting Unavailable BLOOD, MARY Culver Attending Unavailable JACKSON MONTENEGRO Consulting Unavailable SONIYA PATEL Referring [facility] Unavailable MAKENNA AMAYA Consulting Unavailable Hieu Giovani FRIEDMAN [facility] Primary Care Provider BHAVESH DEJESUS Attending Unavailable GIOVANI HAGEN Attending Unavailable GIOVANI HAGEN Attending Unavailable CADE WILCOX Attending Unavailable GIOVANI HAGEN Attending Unavailable GIOVANI HAGEN Attending Unavailable AKUA DU Attending Unavailable Allergies Allergy Classification Reported Allergen(s) Allergy Type Date of Onset Reaction(s) Facility Iodine (and Iodine containting drugs) (2 sources) Iodine Drug Allergy 9 Swelling, Itching [facility] Iohexol (2 sources) Iohexol Drug Allergy 9 Itching [facility] (20 sources) Iodine; Translations: [IODINE] Drug Allergy 9 Swelling, Itching [facility] (20 sources) Iohexol; Translations: [IOHEXOL] Drug Allergy 9 Itching [facility] (1 source) Cat Propensity to adverse reactions anaphylaxis [facility] Other (1 source) tree nut, unspecified Propensity to adverse reactions anaphylaxis [facility] Other (1 source) peanut allergenic extract Drug Allergy [facility] (1 source) Cat/Feline Product Derivatives Drug allergy (disorder) 3 [facility] (1 source) No Known Medication Allergies; Translations: [No Known Medication Allergies] Propensity to adverse reactions (disorder) [facility] Medications Current Medications Medication Drug [...] capsules by mouth at bedtime Bis Subcit Yol-Nkdir-Aiqzjqxe (PYLERA) 140-125-125 mg per capsule Take 3 [...] days., # 50 cap(s), Refills(s) 0, Pharmacy: [facility]/pharmacy #[id number], 158, cm, 06/29/22 8:19:00 EST, Height/Length [...] 0 Active take 1 capsule by mo [facility] every twenty-four hours Vyvanse 50 MG 1 [...] oral tablet (1 source) Aluminum Complex Start: End: 3 take 1 tablet by mouth [...] doxepin HCl (D OXEPIN ORAL) estrogens, conjugated (fpc) 0.625 mg/ml vaginal cream (15 sources) Estrogen [...] Comment on above: TAKE 1 CAPSULE BY [facility] EVERY DAY IN THE MORNING FOR 30 [...] Test Name Value Interpretation Reference Range Facility [facility] 11-02-2023 CNPN Telephone (CARDMN) BELGICA HARPER ([id number]) 1990 F Date Time Provider Department 11/02/23 [...] Cmt: Referral AND Records are in Care Everywhere/Scan Docs Prescriptions as of 12/01/2023 - tenapanor (IBSRELA) 50 mg tablet Take [...] mouth once daily. Facility-Administered Medications as of 12/01/2023 - lidocaine (PF) 10 mg/mL (1 %) 1-2 mg injection (XYLOCAINE) - NaCl 0.9% iv infusion Problem List As Of Date 11/02/2023 Noted Resolved Gastroparesis [K31.84] 11/02/2022 Encounter Status:Closed by CRISS MCCRARY on 11/02/23 Normal [facility] Extra Lavender Tubeon 2022 Extra Lavender Tube Normal [facility] Comment on above: Performed By: #### X LAV, LIVP, LIP #### [facility] [address] [facility] [place] [address] [employer] Test Grader: Ronald Pearce MD Lipaseon 03-24-2023 Lipase [Catalytic activity/Vol] 260 U/L High 13-60 [facility] Comment on above: Performed By: #### X LAV, LIVP, LIP #### [facility] [address] [place] [address] [employer] Test Grader: Ronald Pearce MD Liver Profileon 03-24-2023 Albumin [Mass/Vol] 3.5 g/dL Normal 3.5-5.2 [facility] Comment on above: Performed By: #### X LAV, LIVP, LIP ####[facility] [address] [place] [address] Lab Director: Ronald Pearce MD Alkaline Phos 321 U/L High 35-104 [facility] Comment on above: Performed By: #### X LAV, LIVP, LIP ####[facility] [address] [place] [phone] Director: Ronald Pearce MD ALT [Catalytic activity/Vol] 137 U/L High 5-33 [facility] Comment on above: Performed By: #### X LAV, LIVP, LIP ####[facility] [address] [place] [phone] Director: Ronald Pearce MD AST [Catalytic activity/Vol] 60 U/L High <32 [facility] Comment on above: Performed By: #### X LAV, LIVP, LIP ####[facility] [address] [facility] [place] [phone] Director: Ronald Pearce MD Bilirubin [Mass/Vol] 1.0 mg/dL Normal 0.3-1.2 [facility] Comment on above: Performed By: #### X LAV, LIVP, LIP ####[facility] [address] [place] [address] Lab Director: Ronald Pearce MD Bilirubin, Indirect 0.4 mg/dL Normal 0.0-1.0 [facility] Comment on above: Performed By: #### X LAV, LIVP, LIP ####[facility] [address] [place] [phone] Director: Ronald Pearce MD Bilirubin.indirect [Mass/Vol] 0.6 mg/dL High <0.3 [facility] Comment on above: Performed By: #### X LAV, LIVP, LIP ####[facility] [address] [place] [address] Lab Director: Ronald Pearce MD Protein [Mass/Vol] 5.7 g/dL Low 6.4-8.3 [facility] Comment on above: Performed By: #### X LAV, LIVP, LIP ####[facility] [address] [facility], [place] [id number] lab Director: Ronald Pearce MD Extra Lavender Tubeon 2022 Extra Lavender Tube Normal [facility] Comment on above: Performed By: #### L IVP, XLAV ####[facility] [address] [facility], [place] [id number] lab Director: Ronald Pearce MD FL CHOLANGIOGRAM [...] Danny Cole MD 03/23/23 Final result Normal [facility] Liver Profileon 03-23-2023 Albumin [Mass/Vol] 3.5 g/dL Normal 3.5-5.2 [facility] Comment on above: Performed By: #### L IVP, XLAV ####[facility] [address] [facility], [place] [id number] lab Director: Ronald Pearce MD Alkaline Phos 293 U/L High 35-104 [facility] Comment on above: Performed By: #### L IVP, XLAV ####[facility] [address] [place] [address] Lab Director: Ronald Pearce MD ALT [Catalytic activity/Vol] 111 U/L High 5-33 [facility] Comment on above: Performed By: #### L IVP, XLAV ####[facility] [address] [place] [phone] Director: Ronald Pearce MD AST [Catalytic activity/Vol] 43 U/L High <32 [facility] Comment on above: Performed By: #### L IVP, XLAV ####[facility] [address] [place] [address] Lab Director: Ronald Pearce MD Bilirubin [Mass/Vol] 2.6 mg/dL High 0.3-1.2 [facility] Comment on above: Performed By: #### L IVP, XLAV ####[facility] [address] [place] [address] Lab Director: Ronald Pearce MD Bilirubin, Indirect 0.8 mg/dL Normal 0.0-1.0 [facility] Comment on above: Performed By: #### L IVP, XLAV ####[facility] [address] [place] [address] Lab Director: Ronald Pearce MD Bilirubin.indirect [Mass/Vol] 1.8 mg/dL High <0.3 [facility] Comment on above: Performed By: #### L IVP, XLAV ####[facility] [address] [place] [address] Lab Director: Ronald Pearce MD Protein [Mass/Vol] 5.7 g/dL Low 6.4-8.3 [facility] Comment on above: Performed By: #### L IVP, XLAV ####[facility] [address] [place], [place] [id number] lab Director: Ronald Pearce MD Surgical Pathology Reporton 03-23-2023 Surgical Pathology Report (NOTE) Path Number: [id number] -- Diagnosis -- A. GALLBLADDER AND CONTENTS, [...] lesions or periductal lymph nodes are identified. Pharmacy Clerk sections 1c. tm SM/tb1:03/24/2023 Microscopic Description Microscopic examination performed. Processing Lab: [address] [id number] Interpretation Performed at [address] [phone] SURGICAL PATHOLOGY CONSULTATION Patient Name: BELGICA HARPER Med Rec: [id number] [facility] [employer] [facility] ANATOMIC PATHOLOGY [facility] [facility]. [place], [place] [id number] Normal [facility] CBC with Diffon 03-22-2023 Abs. Basophil <0.03 Normal 0.00-0.20 [facility] Comment on above: Performed By: #### C DP, LIP, CMPX #### [facility] [address] [place] [address] [employer] Test Grader: Ronald Pearce MD #### TRIG #### [address] [address] [employer] Test Grader: Elio Marley MD Abs.Imm.Granulocyte 0.03 k/uL Normal 0.00-0.30 [facility] Comment on above: Performed By: #### C DP, LIP, CMPX #### [facility] [address] [place] [address] [employer] Test Grader: Ronald Pearce MD #### TRIG #### [address] [address] [employer] Test Grader: Elio Marley MD Abs.Neutrophil (Seg) 6.89 k/uL Normal 1.50-8.10 [facility] Comment on above: Performed By: #### C DP, LIP, CMPX #### [facility] [address] [place] [address] [employer] Test Grader: Ronald Pearce MD #### TRIG #### [address] [address] [employer] Test Grader: Elio Marley MD Basophils/100 WBC (Bld) 0 % Normal 0-2 [facility] Comment on above: Performed By: #### C DP, LIP, CMPX #### [facility] [address] [place] [address] [employer] Test Grader: Ronald Pearce MD #### TRIG #### [address] [address] [employer] Test Grader: Elio Marley MD Eosinophils (Bld) [#/Vol] 0.07 10*3/uL Normal 0.00-0.44 [facility] Comment on above: Performed By: #### C DP, LIP, CMPX #### [facility] [address] [place] [address] [employer] Test Grader: Ronald Pearce MD #### TRIG #### [address] [address] [employer] Test Grader: Elio Marley MD Eosinophils/100 WBC (Bld) 1 % Normal 1-4 [facility] Comment on above: Performed By: #### C DP, LIP, CMPX #### [facility] [address] [place] [address] [employer] Test Grader: Ronald Pearce MD #### TRIG #### [address] [address] [employer] Test Grader: Elio Marley MD Erythrocyte distribution width (RBC) [Ratio] 12.2 % Normal 11.8-14.4 [facility] Comment on above: Performed By: #### C DP, LIP, CMPX #### [facility] [place] [address] [employer] Test Grader: Ronald Pearce MD #### TRIG #### [address] [address] [employer] Test Grader: Elio Marley MD Hematocrit (Bld) [Volume fraction] 36.9 % Normal 36.3-47.1 [facility] Comment on above: Performed By: #### C DP, LIP, CMPX #### [facility] [place] [address] [employer] A[employer] Test Grader: Ronald Pearce MD #### TRIG #### [address] [address] [employer] Test Grader: Elio Marley MD Hemoglobin (Bld) [Mass/Vol] 12.1 g/dL Normal 11.9-15.1 [facility] Comment on above: Performed By: #### C DP, LIP, CMPX #### [facility] [address] [place] [address] [employer] Test Grader: Ronald Pearce MD #### TRIG #### [address] [address] [employer] Test Grader: Elio Marley MD Immature granulocytes/100 WBC (Bld) 0 % Normal 0 [facility] Comment on above: Performed By: #### C DP, LIP, CMPX #### [facility] [address] [place] [address] [employer] Test Grader: Ronald Pearce MD #### TRIG #### [address] [address] [employer] Test Grader: Elio Marley MD Lymphocytes (Bld) [#/Vol] 1.62 10*3/uL Normal 1.10-3.70 [facility] Comment on above: Performed By: #### C DP, LIP, CMPX #### [facility] [address] [place] [address] [employer] Test Grader: Ronald Pearce MD #### TRIG #### [address] [address] [employer] Test Grader: Elio Marley MD Lymphocytes/100 WBC (Bld) 18 % Low 24-43 [facility] Comment on above: Performed By: #### C DP, LIP, CMPX #### [facility] [place] [address] [employer] A[employer] Test Grader: Ronald Pearce MD #### TRIG #### [address] [address] [employer] Test Grader: Elio Marley MD MCH (RBC) [Entitic mass] 32.5 pg Normal 25.2-33.5 [facility] Comment on above: Performed By: #### C DP, LIP, CMPX #### [facility] [place] [address] [employer] Test Grader: Ronald Pearce MD #### TRIG #### [address] [address] [employer] Test Grader: Elio Marley MD MCHC (RBC) [Mass/Vol] 32.8 g/dL Normal 28.4-34.8 [facility] Comment on above: Performed By: #### C DP, LIP, CMPX #### [facility] [address] [place] [address] [employer] Test Grader: Ronald Pearce MD #### TRIG #### [address] [address] [employer] Test Grader: Elio Marley MD MCV (RBC) [Entitic vol] 99.2 fL Normal 82.6-102.9 [facility] Comment on above: Performed By: #### C DP, LIP, CMPX #### [facility] [address] [place] [address] [employer] Test Grader: Ronald Pearce MD #### TRIG #### [address] [address] [employer] Test Grader: Elio Marley MD Monocytes (Bld) [#/Vol] 0.57 10*3/uL Normal 0.10-1.20 [facility] Comment on above: Performed By: #### C DP, LIP, CMPX #### [facility] [address] [place] [address] [employer] Test Grader: Ronald Pearce MD #### TRIG #### [address] [id number] [employer] Test Grader: Elio Marley MD Monocytes/100 WBC (Bld) 6 % Normal 3-12 [facility] Comment on above: Performed By: #### C DP, LIP, CMPX #### [facility] [address] [place] [address] [employer] Test Grader: Ronald Pearce MD #### TRIG #### [address] [id number] [employer] Test Grader: Elio Marley MD Neutrophil (Seg) 75 % High 36-65 [facility] Comment on above: Performed By: #### C DP, LIP, CMPX #### [facility] [address] [place] [address] [employer] A[employer] Test Grader: Ronald Pearce MD #### TRIG #### [address] [id number] [employer] Test Grader: Elio Marley MD NRBC Automated 0.0 per 100 WBC Normal 0.0 [facility] Comment on above: Performed By: #### C DP, LIP, CMPX #### [facility] [address] [place] [address] [employer] Test Grader: Ronald Pearce MD #### TRIG #### [address] [id number] [employer] Test Grader: Elio Marley MD Platelet mean volume (Bld) [Entitic vol] 10.7 fL Normal 8.1-13.5 [facility] Comment on above: Performed By: #### C DP, LIP, CMPX #### [facility] [address] [place] [address] [employer] Test Grader: Ronald Pearce MD #### TRIG #### [address] [id number] [employer] Test Grader: Elio Marley MD Platelets (Bld) [#/Vol] 188 10*3/uL Normal 138-453 [facility] Comment on above: Performed By: #### C DP, LIP, CMPX #### [facility] [place] [address] [employer] A[employer] Test Grader: Ronald Pearce MD #### TRIG #### [address] [address] [employer] Test Grader: Elio Marley MD RBC (Bld) [#/Vol] 3.72 10*6/uL Low 3.95-5.11 [facility] Comment on above: Performed By: #### C DP, LIP, CMPX #### [facility] [address] [place] [address] [employer] Test Grader: Ronald Pearce MD #### TRIG #### [address] [address] [employer] Test Grader: Elio Marley MD WBC (Bld) [#/Vol] 9.2 10*3/uL Normal 3.5-11.3 [facility] Comment on above: Performed By: #### C DP, LIP, CMPX #### [facility] [address] [place] [address] [employer] Test Grader: Ronald Pearce MD #### TRIG #### [address] [address] [employer] Test Grader: Elio Marley MD Comp Metabolic Pr/rfx MGon 05-22-2022 Albumin [Mass/Vol] 3.5 g/dL Normal 3.5-5.2 [facility] Comment on above: Performed By: #### C DP, LIP, CMPX #### [facility] [address] [place] [address] [employer] Test Grader: Ronald Pearce MD #### TRIG #### [address] [place] [address] [employer] Test Grader: Elio Marley MD Alkaline Phos 157 U/L High 35-104 [facility] Comment on above: Performed By: #### C DP, LIP, CMPX #### [facility] [address] [place] [address] [employer] A[employer] Test Grader: Ronald Pearce MD #### TRIG #### [address] [address] [employer] Test Grader: Elio Marley MD ALT [Catalytic activity/Vol] 131 U/L High 5-33 [facility] Comment on above: Performed By: #### C DP, LIP, CMPX #### [facility] [address] [place] [address] [employer] Test Grader: Ronald Pearce MD #### TRIG #### [address] [address] [employer] Test Grader: Elio Marley MD Anion gap [Moles/Vol] 11 mmol/L Normal 9-17 [facility] Comment on above: Performed By: #### C DP, LIP, CMPX #### [facility] [address] [place] [address] [employer] Test Grader: Ronald Pearce MD #### TRIG #### [address] [address] [employer] Test Grader: Elio Marley MD AST [Catalytic activity/Vol] 34 U/L High <32 [facility] Comment on above: Performed By: #### C DP, LIP, CMPX #### [facility] [address] [place] [address] [employer] Test Grader: Ronald Pearce MD #### TRIG #### [address] [place] [address] [employer] A[employer] Test Grader: Elio Marley MD Bilirubin [Mass/Vol] 1.9 mg/dL High 0.3-1.2 [facility] Comment on above: Performed By: #### C DP, LIP, CMPX #### [facility] [address] [place] [address] [employer] Test Grader: Ronald Pearce MD #### TRIG #### [address] [address] [employer] Test Grader: Elio Marley MD BUN/CRE Ratio 17 Normal 9-20 [facility] Comment on above: Performed By: #### C DP, LIP, CMPX #### [facility] [address] [place] [address] [employer] Test Grader: Ronald Pearce MD #### TRIG #### [address] [address] [employer] Test Grader: Elio Marley MD Calcium [Mass/Vol] 8.1 mg/dL Low 8.6-10.4 [facility] Comment on above: Performed By: #### C DP, LIP, CMPX #### [facility] [address] [place] [address] [employer] Test Grader: Ronald Pearce MD #### TRIG #### [address] [address] [employer] Test Grader: Elio Marley MD Chloride [Moles/Vol] 105 mmol/L Normal 98-107 [facility] Comment on above: Performed By: #### C DP, LIP, CMPX #### [facility] [address] [place] [address] [employer] Test Grader: Ronald Pearce MD #### TRIG #### [address] [address] [employer] Test Grader: Elio Marley MD CO2 [Moles/Vol] 21 mmol/L Normal 20-31 [facility] Comment on above: Performed By: #### C DP, LIP, CMPX #### [facility] [address] [place] [address] [employer] Test Grader: Ronald Pearce MD #### TRIG #### [address] [address] [employer] Test Grader: Elio Marley MD Creatinine [Mass/Vol] 0.6 mg/dL Normal 0.5-0.9 [facility] Comment on above: Performed By: #### C DP, LIP, CMPX #### [facility] [address] [place] [address] [employer] Test Grader: Ronald Pearce MD #### TRIG #### [address] [address] [employer] Test Grader: Elio Marley MD GFR/1.73 sq M.predicted among non-blacks MDRD (S/P/Bld) [Vol rate/Area] mL/min/{1.73_m2} Normal >60 [facility] Comment on above: Result Comment: These [...] By: #### C DP, LIP, CMPX #### [facility] [address] [place] [address] [employer] Test Grader: Ronald Pearce MD #### TRIG #### [address] [place] [address] [employer] Test Grader: Elio Marley MD Glucose [Mass/Vol] 75 mg/dL Normal 70-99 [facility] Comment on above: Performed By: #### C DP, LIP, CMPX #### [facility] [address] [place] [address] [employer] Test Grader: Ronald Pearce MD #### TRIG #### [address] [address] [employer] Test Grader: Elio Marley MD Potassium [Moles/Vol] 4.0 mmol/L Normal 3.7-5.3 [facility] Comment on above: Performed By: #### C DP, LIP, CMPX #### [facility] [address] [place] [address] [employer] Test Grader: Ronald Pearce MD #### TRIG #### [address] [address] [employer] Test Grader: Elio Marley MD Protein [Mass/Vol] 5.7 g/dL Low 6.4-8.3 [facility] Comment on above: Performed By: #### C DP, LIP, CMPX #### [facility] [address] [place] [address] [employer] Test Grader: Ronald Pearce MD #### TRIG #### [address] [address] [employer] Test Grader: Elio Marley MD Sodium [Moles/Vol] 137 mmol/L Normal 135-144 [facility] Comment on above: Performed By: #### C DP, LIP, CMPX #### [facility] [address] [place] [address] [employer] Test Grader: Ronald Pearce MD #### TRIG #### [address] [place] [address] [employer] Test Grader: Elio Marley MD Urea nitrogen [Mass/Vol] 10 mg/dL Normal 6-20 [facility] Comment on above: Performed By: #### C DP, LIP, CMPX #### [facility] [address] [place] [address] [employer] Test Grader: Ronald Pearce MD #### TRIG #### [address] [address] [employer] Test Grader: Elio Marley MD K (Potassium)on 03-22-2023 Potassium [Moles/Vol] 3.8 mmol/L Normal 3.7-5.3 [facility] Comment on above: Performed By: #### K #### [facility] [address] [place] [address] [employer] Test Grader: Ronald Pearce MD Lipaseon 03-22-2023 Lipase [Catalytic activity/Vol] 198 U/L High 13-60 [facility] [facility] Comment on above: Performed By: #### C DP, LIP, CMPX #### [facility] [address] [place] [address] [employer] Test Grader: Ronald Pearce MD #### TRIG #### [address] [address] [employer] Test Grader: Elio Marley MD MRI ABDOMEN WO CONTRAST [...] Daniel Hooker MD 03/22/23 Final result Normal [facility] Triglycerideson 03-22-2023 Triglyceride [Mass/Vol] 102 mg/dL Normal 0-149 [facility] Comment on above: Result Comment: Triglyceride Guidelines: <150 Desirable 150-199 Borderline 200-499 High >499 Very high Based on AHA Guidelines for fasting triglyceride, January 2012. Performed By: #### C DP, LIP, CMPX #### [facility] [address] [place], [place] [address] [employer] Test Grader: Ronald Pearce MD #### TRIG #### [facility] Walk-in Appointment Scheduler [address] [place], [place] [id number] [employer] Test Grader: MD Lincoln Gordillo 03-20-2023 ISABELN Telephone (FVPRAD) BELGICA HARPER ([id number]) 1990 F Date Time Provider Department 03/20/23 [...] Encounter Status:Closed by LAWRENCE CAMPUZANO on 03/20/23 Normal [facility] DENY Antinuclear Antibodieson 10-26-2022 Antinuclear Abs, IFA Negative Normal . [facility] Comment on above: Order Comment: Reaso n for Exam Elevated liver enzymes Result Comment: Nega tive <1:80 Borderline 1:80 Positive >1:80 ICAP nomenclature: AC-0 For more information about Hep-2 cell patterns use ANApatterns.org, the official website for the International Consensus on Antinuclear Antibody (DENY) Patterns (ICAP). Performed at: - [place] [id number] [employer] Test Grader: Demarcus Moreno PhD, Phone: [phone] Performed By: #### A NA, HEMOCHROM, IGG, MITOM2, ALPHA PHEN, HAABT, SMAB, CERULOP, L-K MICRO #### [facility] , #### [place] #### [facility] [address] [place] [address] Bhnvp-3-Cnnwloelqzk Phenotyp kwasi 10-26-2022 Alpha 1 Anti-Trypsin 121 mg/dL Normal 100-188 [facility] Comment on above: Order Comment: Reaso n for Exam Elevated liver enzymes Performed By: #### A NA, HEMOCHROM, IGG, MITOM2, ALPHA PHEN, HAABT, SMAB, CERULOP, L-K MICRO #### [facility] , #### [place] #### [facility] [address] [place] [address] Phenotype (P1) MM Normal . [facility] Comment on above: Order Comment: Reaso n [...] Ranges used to confirm phenotype. Performed at: [address] [id number] [employer] Test Grader: Demarcus Moreno PhD, Phone: [phone] Performed at: [address] [id number] [employer] Test Grader: Yuli Callejas MD, Phone: [phone] Performed By: #### A NA, HEMOCHROM, IGG, MITOM2, ALPHA PHEN, HAABT, SMAB, CERULOP, L-K MICRO #### [facility] , #### [place] #### [address] Ceruloplasminon 10-26-2022 Ceruloplasmin 27.2 mg/dL Normal 19.0-39.0 [facility] Comment on above: Order Comment: Reaso n for Exam Elevated liver enzymes Result Comment: Perf ormed at: [address] [id number] [employer] Test Grader: Demarcus Moreno PhD, Phone: [phone] PERFORMED BY: [place] [address] PATHOLOGIST PLANNING AND ANALYSIS MANAGER ILIANA CAMP M.D. Performed By: #### A NA, HEMOCHROM, IGG, MITOM2, ALPHA PHEN, HAABT, SMAB, CERULOP, L-K MICRO #### [facility] , #### [place] #### [address] Ferritinon 10-26-2022 Ferritin [Mass/Vol] 106.5 ng/mL Normal 11.0-306.8 [facility] Comment on above: Order Comment: pt is fasting Reason for Exam Elevated liver enzymes Result Comment: PERF ORMED BY: [place] [address] PATHOLOGIST PLANNING AND ANALYSIS MANAGER ILIANA CAMP M.D. Performed By: #### A NA, HEMOCHROM, IGG, MITOM2, ALPHA PHEN, HAABT, SMAB, CERULOP, L-K MICRO #### [facility] , #### [place] #### [address] Ferritin [Mass/volume] in Se rum or PlasmaOrdered By: Erwin Hylton on 10-26-2022 Ferritin [Mass/Vol] 106.5 ng/mL 11.0-306.8 [facility] Hepatitis A Antibody Totalon 10-26-2022 Hepatitis A Antibody Total Negative Normal Negative [facility] Comment on above: Order Comment: Reaso n for Exam Elevated liver enzymes Result Comment: Perf ormed at: [facility] [address] [id number] [employer] Test Grader: Demarcus Moreno PhD, Phone: [phone] PERFORMED BY: [place] [address] PATHOLOGIST PLANNING AND ANALYSIS MANAGER ILIANA CAMP M.D. Performed By: #### A NA, HEMOCHROM, IGG, MITOM2, ALPHA PHEN, HAABT, SMAB, CERULOP, L-K MICRO #### [facility] , #### [place] #### [address] Hereditary Hemochromatosis,D NAon 10-26-2022 Hereditary Hemochromatosis Normal . [facility] Comment on above: Order Comment: Reaso n for Exam Elevated liver enzymes Result Comment: Resu lt: c.845G>A (p.Faa647Swp) - Not Detected c.187C>G (p.Dno03Qvy) - Not Detected c.193A>T (p.Usz11Obp) - Not Detected Not associated with increased [...] for patients who are homozygous for c.845G>A (p.Sym661Sij) and have yet to experience clinical symptoms. Comments: The most common HFE variants associated with hereditary hemochromatosis are c.845G>A (p.Pbx476Lov), c.187C>G (p.Srm14Ruk), c.193A>T (p.Knx79Toc). While patients homozygous for c.845G>A (p.Lqz958Pfp) are the most likely to present clinical symptoms, less than 10% develop clinically significant iron overload with tissue and organ damage. Genetic counseling is recommended to discuss the potential clinical implications of positive results, as well as recommendations for testing family members. Genetic Coordinators are available for health care providers to discuss results at [phone]). Test Details: Three variants analyzed: c.845G>A (p.Atb668Xnq), commonly referred to as C282Y c.187C>G (p.Zyx43Wwf), commonly referred to as H63D c.193A>T (p.Qor67Lik), commonly referred to as S65C Methods/Limitations: DNA [...] developed and its performance characteristics determined by [employer]. It has not been cleared or approved by the Food and Drug Administration. References: Brodie BR, Yoav PC, Deborah KV, Ramyond LW, Ramsey ; [employer] [place] Association for the Study of Liver Diseases. Diagnosis and management of hemochromatosis: 2011 practice guideline by the [place] [employer] for the Study of Liver Diseases. Hepatology. 2011 Oct;54(1):328-43. doi: 10.1002/hep.81448. PMID: 96952748; PMCID: [id number]. Cora G, Olegario P, Fabio DW, Tabatha H, Love O, Zev S, Vazquez I, Kofi M, Sunitha S. [facility] best practice guidelines for the molecular genetic diagnosis of hereditary hemochromatosis (HH). Eur J Hum Margaret. 2016 Jul;24(4):479-95. doi: 10.1038/ejhg.2015.128. Epub 2014Oct 29. PMID: 10095183; PMCID: FYF4046442. Performed By: #### A NA, HEMOCHROM, IGG, MITOM2, ALPHA PHEN, HAABT, SMAB, CERULOP, L-K MICRO #### [facility] , #### [place] #### [place] [address] [place] Reviewed by: Dm Reyna, PhD Normal . [facility] Comment on above: Order Comment: Reaso n for Exam Elevated liver enzymes Result Comment: Perf ormed at: TG - [facility]P [address] [facility], [facility], [place] [id number] [employer] A[employer] Test Grader: Vivian Kelley [facility], Phone: [phone] PERFORMED BY: [place] [address] PATHOLOGIST PLANNING AND ANALYSIS MANAGER ILIANA CAMP M.D. Performed By: #### A NA, HEMOCHROM, IGG, MITOM2, ALPHA PHEN, HAABT, SMAB, CERULOP, L-K MICRO #### [facility] , #### [place] #### [address] Immunoglobulin Harvey Immunoglobulin G 865 mg/dL Normal 586-1602 [facility] Comment on above: Order Comment: Reaso n for Exam Elevated liver enzymes Result Comment: Perf ormed at: - [facility] [address] [id number] [employer] Test Grader: Demarcus Moreno PhD, Phone: [phone] Performed By: #### A NA, HEMOCHROM, IGG, MITOM2, ALPHA PHEN, HAABT, SMAB, CERULOP, L-K MICRO #### [facility] , #### [place] #### [address] Liver-Kidney Microsomal Abon 10-26-2022 Liver-Kidney Microsomal Ab <1.0 Normal 0.0-20.0 [facility] Comment on above: Order Comment: Reaso n [...] MICRO #### [facility] , #### [place] #### [facility] [address] [place] [address] Mitochondrial (M2) Antibodyo n 10-26-2022 Mitochondrial (M2) Antibody <20.0 Normal 0.0-20.0 [facility] Comment on above: Order Comment: Reaso n for Exam Elevated liver enzymes Result Comment: Nega tive 0.0 - 20.0 Equivocal 20.1 - 24.9 Positive >24.9 Mitochondrial (M2) Antibodies are found in 90-96% of patients with primary biliary cirrhosis. Performed at: [address] [id number] [employer] Test Grader: Demarcus Moreno PhD, Phone: [phone] Performed By: #### A NA, HEMOCHROM, IGG, MITOM2, ALPHA PHEN, HAABT, SMAB, CERULOP, L-K MICRO #### [facility] , #### [place] #### [address] Smooth Muscle Antibodyon Smooth Muscle Antibody 4 Normal 0-19 [facility] Comment on above: Order Comment: Reaso n [...] MICRO #### [facility] , #### [place] #### [address] US liveron 10-26-2022 liver [facility] [place] [place] [address] Ultrasound Report Signed Patient: Belgica Harper MR#: [id number] : 1990 Acct:[id number] Age/Sex: 32 / F ADM Date: 10/26/22 Loc: Room: Type: [facility] Attending Dr: Erwin Hylton MD Ordering Provider: [...] Perdomo Jr., D.O.10/26/2022 3:24 PM Dictation Location: [place] [address] Tech: Francia Lopez Transcribed By: GRANT 10/26/22 152 Dictated By: Alexandro Perdomo Jr, DO 10/26/22 152 Signed By: 10/26/22 1524 Normal [facility] ACETYLCHOLINE REC BINDING AB on 10-17-2022 ACETYLCHOLINE BINDING, QUAL Negative Normal Negative [facility] Comment on above: Order Comment: Rl basilio Type: BLOOD SPECIMEN [facility] Facility[facility] Address: [address] [place] [address] Result Comment: Anti -acetylcholine receptor binding antibody test is used as an aid in diagnosis of myasthenia gravis. A negative result cannot exclude myasthenia gravis. Clinical correlation is required. Performed By: #### 3 016-3, 2156-09 #### [facility] CLIA [id number] [address] [place] [address] [place] Acetylcholine receptor binding Ab (S) [Moles/Vol] <0.02 Normal <0.21 [facility] Comment on above: Order Comment: Rl basilio Type: BLOOD SPECIMEN Ordering Facility: [facility] Address: [address] [place] [address] Performed By: #### 3 016-3, 2156-09 #### [facility] CLIA [id number] [facility] [place] [address] [place] AMINO ACIDS, PLASMA W/ CONSU LTATIONon 10-17-2022 Alanine [Moles/Vol] 310 umol/L Normal 177-583 [facility] Comment on above: Order Comment: Rl basilio Type: BLOOD SPECIMEN Ordering Facility: [facility] Address: [address] [place] [address] Performed By: #### 3 016-3, 2156-09 #### [facility] CLIA [id number] [address] [facility]. [place], [place] [id number] [place] [address] [place] Alloisoleucine [Moles/Vol] 2 umol/L Normal 0-2 [facility] Comment on above: Order Comment: Speci men Type: BLOOD SPECIMEN Ordering Facility: [facility] Address: [address] [place] [address] Performed By: #### 3 016-, 2156-09 #### [facility] IA [id number] [address] [facility] [place] [address] [place] Alpha aminoadipate [Moles/Vol] <1 Normal 0-6 [facility] Comment on above: Order Comment: Speci men Type: BLOOD SPECIMEN Ordering Facility: [facility] Address: [address] [place] [address] Performed By: #### 3 016-, 2156-09 #### [facility] IA [id number] [address] [place], [place] [address] [place] [address] AMINO ACID CONSULTATION, PLASMA Normal [facility] Comment on above: Order Comment: Speci men Type: BLOOD SPECIMEN Ordering Facility: [facility] Address: [address] [place] [address] Result Comment: This plasma amino acid analysis shows no significant abnormalities. Reference intervals from Isacc E, Len MG, Kate FANTASMA, and Christopher DK: Biochemical Genetics: A Laboratory Manual, Copyright 1989 by [employer] Reference intervals not established for some amino acids. This test was developed and its performance characteristics determined by [facility] Fuad JRajesh [facility] Pathology and Laboratory Medicine [place] ([facility] It has not been cleared or approved by the FDA. -[facility] is regulated under CLIA as qualified to perform high complexity testing. This test is used for clinical purposes. It should not be regarded as investigational or for research. Performed By: #### 3 016-3, 2156-09 #### [facility] IA [id number] [address] [place] [address] [place] AMINO ACIDS REVIEW, PLASMA Reviewed by Patrick Proctor MD, Ph.D ([id number]) Normal [facility] Comment on above: Order Comment: Speci men Type: BLOOD SPECIMEN Ordering Facility: [facility] Address: [address] [place] [address] Performed By: #### 3 016-3, 1987-08, 2156-09 #### [facility] CLIA [id number] [address] [place] [address] [place] Arginine [Moles/Vol] 77 umol/L Normal 15-128 [facility] Comment on above: Order Comment: Speci men Type: BLOOD SPECIMEN Ordering Facility: [facility] Address: [place] [address] Performed By: #### 3 016-3, 1987-08, 2156-09 #### [facility] CLIA [id number] [address] [place] [address] [place] Asparagine [Moles/Vol] 44 umol/L Normal 35-74 [facility] Comment on above: Order Comment: Speci men Type: BLOOD SPECIMEN Ordering Facility: [facility] Address: [place] [address] Performed By: #### 3 016-3, 1987-08, 2156-09 #### [facility] CLIA [id number] [address] [place] [address] [place] Aspartate [Moles/Vol] 2 umol/L Normal 1-25 [facility] Comment on above: Order Comment: Speci men Type: BLOOD SPECIMEN Ordering Facility: [facility] Address: [address] Performed By: #### 3 016-3, 1987-08, 2156-09 #### [facility] CLIA [id number] [address] [place] [address] [place] Citrulline [Moles/Vol] 25 umol/L Normal 12-55 [facility] Comment on above: Order Comment: Speci men Type: BLOOD SPECIMEN Ordering Facility: [facility] Address: [address] [place] [address] Performed By: #### 3 016-3, 1987-08, 2156-09 #### [facility] CLIA [id number] [address] [place] [address] [place] Cystine [Moles/Vol] 33 umol/L Normal 5-82 [facility] Comment on above: Order Comment: Speci men Type: BLOOD SPECIMEN Ordering Facility: [facility] Address: [address] [place], [place] [address] Performed By: #### 3 016-3, 2156-09 #### [facility] CLIA [id number] [address] [place] [address] [place] Glutamate [Moles/Vol] 31 umol/L Normal 10-131 [facility] Comment on above: Order Comment: Speci men Type: BLOOD SPECIMEN Ordering Facility: [facility] Address: [address] [place] [address] Performed By: #### 3 016-3, 2156-09 #### [facility] IA [id number] [address] [place] [address] [place] Glutamine [Moles/Vol] 652 umol/L Normal 205-756 [facility] Comment on above: Order Comment: Speci men Type: BLOOD SPECIMEN Ordering Facility: [facility] Address: [address] [place] [address] Performed By: #### 3 016-3, 2156-09 #### [facility] CLIA [id number] [address] [place] [address] [place] Glycine [Moles/Vol] 351 umol/L Normal 151-490 [facility] Comment on above: Order Comment: Speci men Type: BLOOD SPECIMEN Ordering Facility: [facility] Address: [address] [place] [address] Performed By: #### 3 016-3, 2156-09 #### [facility] CLIA [id number] [address] [place] [address] [place] Histidine [Moles/Vol] 82 umol/L Normal 72-124 [facility] Comment on above: Order Comment: Speci men Type: BLOOD SPECIMEN Ordering Facility: [facility] Address: [address] Performed By: #### 3 016-3, 2156-09 #### [facility] CLIA [id number] [address] [place] [address] [place] Hydroxylysine [Moles/Vol] <1 High <=0 [facility] Comment on above: Order Comment: Speci men Type: BLOOD SPECIMEN Ordering Facility: [facility] Address: [address] [place] [address] Performed By: #### 3 016-3, 2156-09 #### [facility] IA [id number] [address] [place] [address] [place] Hydroxyproline [Moles/Vol] 9 umol/L Normal 0-53 [facility] Comment on above: Order Comment: Speci men Type: BLOOD SPECIMEN Ordering Facility: [facility] Address: [address] [place] [address] Performed By: #### 3 016-3, 2156-09 #### [facility] IA [id number] [address] [place] [address] [place] Isoleucine [Moles/Vol] 66 umol/L Normal 30-108 [facility] Comment on above: Order Comment: Speci men Type: BLOOD SPECIMEN Ordering Facility: [facility] Address: [address] Performed By: #### 3 016-3, 1987-08, 2156-09 #### [facility] CLIA [id number] [address] [place] [address] [place] Leucine [Moles/Vol] 109 umol/L Normal 72-201 [facility] Comment on above: Order Comment: Speci men Type: BLOOD SPECIMEN Ordering Facility: [facility] Address: [address] [place] [address] Performed By: #### 3 016-3, 2156-09 #### [facility] CLIA [id number] [address] [place] [address] [place] Lysine [Moles/Vol] 220 umol/L Normal 116-296 [facility] Comment on above: Order Comment: Speci men Type: BLOOD SPECIMEN Ordering Facility: [facility] Address: [address] [place] [address] Performed By: #### 3 016-3, 1987-08, 2156-09 #### [facility] CLIA [id number] [address] [place] [address] [place] Methionine [Moles/Vol] 20 umol/L Normal 10-42 [facility] Comment on above: Order Comment: Speci men Type: BLOOD SPECIMEN Ordering Facility: [facility] Address: [address] [place] [address] Performed By: #### 3 016-3, 2156-09 #### [facility] IA [id number] [address] [place] [address] [place] Ornithine [Moles/Vol] 64 umol/L Normal 48-195 [facility] Comment on above: Order Comment: Speci men Type: BLOOD SPECIMEN Ordering Facility: [facility] Address: [address] [place], [place] [address] Performed By: #### 3 016-3, 2156-09 #### [facility] IA [id number] [address] [place] [address] [place] Phenylalanine [Moles/Vol] 42 umol/L Normal 35-85 [facility] Comment on above: Order Comment: Speci men Type: BLOOD SPECIMEN Ordering Facility: [facility] Address: [address] [place], [place] [address] Performed By: #### 3 016-3, 2156-09 #### [facility] IA [id number] [address] [place] [address] [place] Proline [Moles/Vol] 187 umol/L Normal 97-329 [facility] Comment on above: Order Comment: Speci men Type: BLOOD SPECIMEN Ordering Facility: [facility] Address: [address] [place] [address] Performed By: #### 3 016-3, 1987-08, 2156-09 #### [facility] CLIA [id number] [address] [place] [address] [place] Sarcosine [Moles/Vol] <1 High <=0 [facility] Comment on above: Order Comment: Speci men Type: BLOOD SPECIMEN Ordering Facility: [facility] Address: [address] [place] [address] Performed By: #### 3 016-3, 1987-08, 2156-09 #### [facility] IA [id number] [address] [place] [address] [place] Serine [Moles/Vol] 107 umol/L Normal 58-181 [facility] Comment on above: Order Comment: Speci men Type: BLOOD SPECIMEN Ordering Facility: [facility] Address: [address] [place] [address] Performed By: #### 3 016-3, 1987-08, 2156-09 #### [facility] IA [id number] [address] [place] [address] [place] Taurine [Moles/Vol] 46 umol/L Low 54-210 [facility] Comment on above: Order Comment: Speci men Type: BLOOD SPECIMEN Ordering Facility: [facility] Address: [address] [place] [address] Performed By: #### 3 016-3, 1987-08, 2156-09 #### [facility] IA [id number] [address] [place] [address] [place] Threonine [Moles/Vol] 147 umol/L Normal 60-225 [facility] Comment on above: Order Comment: Speci men Type: BLOOD SPECIMEN Ordering Facility: [facility] Address: [address] [place] [address] Performed By: #### 3 016-3, 1987-08, 2156-09 #### [facility] IA [id number] [address] [place] [address] [place] Tyrosine [Moles/Vol] 51 umol/L Normal 34-112 [facility] Comment on above: Order Comment: Speci men Type: BLOOD SPECIMEN Ordering Facility: [facility] Address: [address] [place] [address] Performed By: #### 3 016-3, 2156-09 #### [facility] CLIA [id number] [address] [place] [address] [place] Valine [Moles/Vol] 199 umol/L Normal 119-336 [facility] Comment on above: Order Comment: Speci men Type: BLOOD SPECIMEN Ordering Facility: [facility] Address: [address] [place] [address] Performed By: #### 3 016-3, 2156-09 #### [facility] IA [id number] [address] [place] [address] [place] CARNITINE FREE/TOTAL, PLASMA on 10-17-2022 C0 [Moles/Vol] 27 umol/L Normal 22-54 [facility] Comment on above: Order Comment: Speci men Type: BLOOD SPECIMEN Ordering Facility: [facility] Address: [address] [place] [address] Performed By: #### C ARNPL #### [facility] CLIA [id number] 95[address] [facility] [id number] [address] [place] C0/Total carnitine [Molar fraction] 0.675 Low 0.700-0.900 [facility] Comment on above: Order Comment: Speci men Type: BLOOD SPECIMEN Ordering Facility: [facility] Address: [address] [place] [address] Result Comment: NOTE : The determination of [...] determined by the Pathology and Laboratory Medicine [place] at the [facility] The U.S. Food and Drug Administration has not approved or cleared this test, however, FDA clearance or approval is not currently required for clinical use. Performed By: #### C WILLIAMPL #### [facility] CLIA [id number] [address] [place] [address] [place] Carnitine [Moles/Vol] 40 umol/L Normal 27-68 [facility] Comment on above: Order Comment: [facility] Type: BLOOD SPECIMEN [facility] Facility[facility] Address: [address] [place] [address] Performed By: #### C WILLIAMPL #### [facility] CLIA [id number] [address] [place] [address] [place] CK SerPl-cCncon 10-17-2022 CK [Catalytic activity/Vol] 50 U/L Normal 42-196 [facility] Comment on above: Order Comment: [facility] Type: BLOOD SPECIMEN [facility] Address: [address] [place] [address] Performed By: #### 3 016-3, 1987-08, 2156-09 #### [facility] CLIA [id number] [address] [place] [address] [place] CRP SerPl-mCncon 10-17-2022 CRP [Mass/Vol] 0.6 mg/dL Normal <0.9 [facility] Comment on above: Order Comment: Rl basilio Type: BLOOD SPECIMEN [facility]ing Facility[facility] Address: [address] [place] [address] Performed By: #### 3 016-3, 2156-09 #### [facility] CLIA [id number] [address] [place] [address] [place] CYTOKINE PANEL 13, SERUMon 0 10-17-2022 INTERFERON GAMMA <4.2 Normal <=4.2 Lisa stein Comment on above: Order Comment: Speci men Type: BLOOD SPECIMEN Ordering Facility: [facility] Address: [address] [place] [address] Performed By: #### 3 016-3, 2156-09 #### [facility] CLIA [id number] [address] [place] [address] [place] INTERLEUKIN 1 BETA <6.5 Normal <=6.7 [facility] Comment on above: Order Comment: Speci men Type: BLOOD SPECIMEN Ordering Facility: [facility] Address: [address] [place] [address] Performed By: #### 3 3, 2156-09 #### [facility] CLIA [id number] [address] [place] [address] [place] INTERLEUKIN 10 3.2 pg/mL High <=2.8 [facility] Comment on above: Order Comment: Speci men Type: BLOOD SPECIMEN Ordering Facility: [facility] Address: [address] [place], [place] [address] Performed By: #### 3 016-3, 2156-09 #### [facility] CLIA [id number] [address] [place] [address] [place] INTERLEUKIN 12 <1.9 Normal <=1.9 [facility] Comment on above: Order Comment: Speci men Type: BLOOD SPECIMEN Ordering Facility: [facility] Address: [address] [place] [address] Performed By: #### 3 016-3, 2156-09 #### [facility] CLIA [id number] [address] [place] [address] [place] INTERLEUKIN 13 <1.7 Normal <=2.3 [facility] Comment on above: Order Comment: Speci men Type: BLOOD SPECIMEN Ordering Facility: [facility] Address: [address] [place] [address] Performed By: #### 3 016-3, 1987-08, 2156-09 #### [facility] CLIA [id number] [address] [place] [address] [place] INTERLEUKIN 17 <1.4 Normal <=1.4 [facility] Comment on above: Order Comment: Speci men Type: BLOOD SPECIMEN Ordering Facility: [facility] Address: [address] [place] [address] Performed By: #### 3 016, 1987-08, 2156-09 #### [facility] CLIA [id number] [address] [place], [place] [id number] [place] [address] [place] INTERLEUKIN 2 <2.1 Normal <=2.1 [facility] Comment on above: Order Comment: Speci men Type: BLOOD SPECIMEN Ordering Facility: [facility] Address: [address] [place] [address] Performed By: #### 3 3, 1987-08, 2156-09 #### [facility] CLIA [id number] [address] [place] [address] [place] INTERLEUKIN 4 (INT4) <2.2 Normal <=2.2 [facility] Comment on above: Order Comment: Speci men Type: BLOOD SPECIMEN Ordering Facility: [facility] Address: [address] [address] Performed By: #### 3 016-3, 1987-08, 2156-09 #### [facility] CLIA [id number] [address] [place], [place] [address] [place] [address] [place] INTERLEUKIN 5 <2.1 Normal <=2.1 [facility] Comment on above: Order Comment: Speci men Type: BLOOD SPECIMEN Ordering Facility: [facility] Address: [address] [address] Performed By: #### 3 016-3, 2156-09 #### [facility] CLIA [id number] [address] [place] [address] [place] INTERLEUKIN 6 <2.0 Normal <=2.0 [facility] on above: Order Comment: Speci men Type: BLOOD SPECIMEN Ordering Facility: [facility] Address: [address] [place] [address] Performed By: #### 3 , 2156-09 #### [facility] CLIA [id number] [address] [place] [address] [place] INTERLEUKIN 8 <3.0 Normal <=3.0 [facility] Comment on above: Order Comment: Speci men Type: BLOOD SPECIMEN Ordering Facility: [facility] Address: [address] [place] [address] Performed By: #### 3 , 2156-09 #### [facility] CLIA [id number] [address] [place], [place] [address] [place] [address] [place] INTERLEUKIN-2 RECEPTOR 355.4 pg/mL Normal 175.3-858.2 [facility] Comment on above: Order Comment: Speci men Type: BLOOD SPECIMEN Ordering Facility: [facility] Address: [address] [place] [address] Performed By: #### 3 , 2156-09 #### [facility] CLIA [id number] [place] [address] [place] TUMOR NECROSIS FACTOR - ALPHA 1.9 pg/mL Normal <=7.2 [facility] Comment on above: Order Comment: Speci men Type: BLOOD SPECIMEN Ordering Facility: [facility] Address: [address] [place] [address] Result Comment: INTE RPRETIVE INFORMATION: Cytokines Results are used to understand the pathophysiology of immune, infectious, or inflammatory disorders, or may be used for research purposes. This test was developed and its performance characteristics determined by [employer]. It has not been cleared or approved by the [place] Food and Drug Administration. This test was performed in a CLIA certified laboratory and is intended for clinical purposes. Performed By: [facility] [address] [place] [address] Shift Boss: Terry Jacome MD, PhD Performed By: #### 3 016-3, 1987-08, 2156-09 #### [facility] CLIA [id number] [facility] [place] [address] [place] ESR Westergren method (Bld) [Velocity]on 10-17-2022 ESR (Bld) [Velocity] 5 mm/h Normal 0-20 [facility] Comment on above: Order Comment: [facility] Type: BLOOD SPECIMEN Ordering Facility: [facility] Address: [address] [address] Performed By: #### 4 537-7 #### [facility] CLIA [id number] [address] [facility] DESK [id number] [place] ESTROGEN FRACTION BLon 10-17 ESTRADIOL 238.7 pg/mL Normal [facility] Comment on above: Order Comment: [facility] Type: BLOOD SPECIMEN Ordering Facility: [facility] Address: [address] [address] Result Comment: REFE RENCE INTERVAL: Estradiol by [employer] For a complete set of all established reference intervals, refer to [employer]/Tests/Pub/[id number]. This test was developed and its performance characteristics determined by [employer]. It has not been cleared or approved by the US Food and Drug Administration. This test was performed in a CLIA certified laboratory and is intended for clinical purposes. Performed By: #### 3 016-3, 1987-08, 2156-09 #### [facility] CLIA [id number] [address] [facility] [place] [address] [place] ESTROGENS TOTAL 354.8 pg/mL Normal [facility] Comment on above: Order Comment: [facility] Type: BLOOD SPECIMEN Ordering Facility: [facility] Address: [address] [address] Result Comment: Refe rence interval of estrogens (pg/mL) Estrone Estradiol Total Estrogens Early follicular <150.0 30.0-100.0 30.0-250.0 Late follicular 100.0-250.0 100.0-400.0 200.0-650.0 Luteal <200.0 50.0-150.0 50.0-350.0 Post-menopausal 3.0-32.0 2.0-21.0 5.0-52.0 REFERENCE INTERVAL: Estrogens Total Calculation For a complete set of all established reference intervals, refer to [employer]/Tests/Pub/[id number]. Performed By: [employer] [address] [place] [address] Shift Boss: Terry Jacome MD, PhD Performed By: #### 3 016-3, 1987-08, 2156-09 #### [facility] CLIA [id number] [address] [place] ESTRONE 116.1 pg/mL Normal [facility] Comment on above: Order Comment: Speci men Type: BLOOD SPECIMEN Ordering Facility: [facility] Address: [address] [place] [address] Result Comment: INTERPRETIVE INFORMATION: Estrone by [employer] For a complete set of all established reference intervals, refer to [employer]/Tests/Pub/[id number]. This test was developed and its performance characteristics determined by [employer]. It has not been cleared or approved by the US Food and Drug Administration. This test was performed in a CLIA certified laboratory and is intended for clinical purposes. Performed By: #### 3 016-3, 1987-08, 2156-09 #### [facility] CLIA [id number] [address] [place] [address] [place] GAD65 Ab Ser-aCncon 10-18-19 23 Glutamate decarboxylase 65 Ab Qn (S) <5.0 Normal <=5.0 [facility] Comment on above: Order Comment: Speci men Type: BLOOD SPECIMEN Ordering Facility: [facility] Address: [address] [place] [address] Result Comment: Anti -glutamic acid decarboxylase antibody [...] is required. Performed By: #### 3 016-3, 2156-09 #### [facility] CLIA [id number] [address] [facility]. [place], [place] [address] [place] [address] [place] Glutamate decarboxylase 65 A b Qn (S)on 10-17-2022 GLUTAMIC ACID DECARBOXYLAS AB QUALITATIVE Negative Normal Negative [facility] Comment on above: Order Comment: Rl basilio Type: BLOOD SPECIMEN Ordering Facility: [facility] Address: [address] [place] [address] Performed By: #### 3 016-3, 2156-09 #### [facility] CLIA [id number] [address] [facility] [place] [address] [place] HbA1c (Bld)on 10-17-2022 Average glucose Estimated from glycated hemoglobin (Bld) [Mass/Vol] 88 mg/dL Normal [facility] Comment on above: Order Comment: [facility] Type: BLOOD SPECIMEN Ordering Facility: [facility] Address: [address] [place] [address] Result Comment: eAG: (Estimated average glucose) is a calculated value from HgbA1c and is corporate sales representative of the average blood glucose level in the last 2-3 month period. Performed By: #### 3 016-3, 2156-09 #### [facility] CLIA [id number] [address] [place] HbA1c (Bld) [Mass fraction] 4.7 % Normal 4.3-5.6 [facility] Comment on above: Order Comment: [facility] Type: BLOOD SPECIMEN Ordering Facility: [facility] Address: [address] [place], [place] [address] Result Comment: Amer ican Diabetes Association guidelines indicate that patients with HgbA1c in the range 5.7-6.4% are at increased risk for development of diabetes, and intervention by lifestyle modification may be beneficial. HgbA1c greater or equal to 6.5% is considered diagnostic of diabetes. Performed By: #### 3 016-3, 1987-08, 2156-09 #### [facility] CLIA [id number] [address] [place] [address] [place] IgA SerPl-mCncon 10-17-2022 IgA [Mass/Vol] 169 mg/dL Normal 70-400 [facility] Comment on above: Order Comment: Speci men Type: BLOOD SPECIMEN Ordering Facility: [facility] Address: [address] [place] [address] Performed By: #### 3 016-3, 1987-08, 2156-09 #### [facility] CLIA [id number] [address] [place] [address] [place] IgG SerPl-mCncon 10-17-2022 IgG [Mass/Vol] 932 mg/dL Normal 700-1600 [facility] Comment on above: Order Comment: Speci men Type: BLOOD SPECIMEN Ordering Facility: [facility] Address: [address] [place] [address] Performed By: #### 3 016-3, 1987-08, 2156-09 #### [facility] CLIA [id number] [address] [place] [address] [place] IgM SerPl-mCncon 10-17-2022 IgM [Mass/Vol] 199 mg/dL Normal 40-230 [facility] Comment on above: Order Comment: Speci men Type: BLOOD SPECIMEN Ordering Facility: [facility] Address: [address] [place] [address] Performed By: #### 3 016-3, 1987-08, 2156-09 #### [facility] CLIA [id number] [address] [place] [address] [place] LDH SerPl-cCncon 10-17-2022 LDH [Catalytic activity/Vol] 160 U/L Normal 135-214 [facility] Comment on above: Order Comment: Speci men Type: BLOOD SPECIMEN Ordering Facility: [facility] Address: [address] [place] [address] Performed By: #### 3 016-3, 1987-, 2156- #### [facility] CLIA [id number] [address] [place] [address] [place] ORGANIC ACIDS UR, QUANT W/CO NSULTon 10-17-2022 2-Hydroxyglutarate/C reatinine (U) [Molar ratio] 3.6 umol/mmolCr Normal 0.6-17.7 [facility] Comment on above: Order Comment: Speci men Type: URINE SPECIMEN Ordering Facility: [facility] Address: [address] [place] [address] Performed By: #### L [id number] #### [facility] [place] [id number] [address] [place] [address] [place] 2-Hydroxyisovalerate /Creatinine (U) [Molar ratio] <0.1 Normal 0.0-0.1 [facility] Comment on above: Order Comment: Speci men Type: URINE SPECIMEN Ordering Facility: [facility] Address: [address] Performed By: #### L [id number] #### [facility] CLIA [id number] [address] [place] [address] 6-Heotvm-8-hydroxybu tyrate (C5-OH)/Creatinine (U) [Molar ratio] <0.6 Normal 0.0-1.3 [facility] Comment on above: Order Comment: Speci men Type: URINE SPECIMEN Ordering Facility: [facility] Address: [address] [place] [address] Performed By: #### L [id number] #### [facility] CLIA [id number] [address] [place] [address] [place] 2-Methylbutyrylglyci ne/Creatinine (U) [Molar ratio] 0.4 umol/mmolCr Normal 0.0-0.4 [facility] Comment on above: Order Comment: Speci men Type: URINE SPECIMEN Ordering Facility: [facility] Address: [address] [place] [address] Performed By: #### L [id number] #### [facility] CLIA [id number] [address] [place] [address] 2-Methylcitrate/Crea tinine (U) [Molar ratio] 1.8 umol/mmolCr Normal 1.0-13.9 [facility] Comment on above: Order Comment: Speci men Type: URINE SPECIMEN Ordering Facility: [facility] Address: [address] [place] [address] Performed By: #### L [id number] #### [facility] IA [id number] [address] [place] [address] [place] 2-Oxoadipate/Creatin ine (U) [Molar ratio] <1.6 Normal 0.0-3.3 [facility] Comment on above: Order Comment: Speci men Type: URINE SPECIMEN Ordering Facility: [facility] Address: [address] [place] [address] Performed By: #### L [id number] #### [facility] IA [id number] [address] [place] [address] [place] 3-Hydroxyglutarate/C reatinine (U) [Molar ratio] 0.0 umol/mmolCr Normal 0.0-0.7 [facility] Comment on above: Order Comment: Speci men Type: URINE SPECIMEN Ordering Facility: [facility] Address: [address] [place] [address] Performed By: #### L [id number] #### [facility] IA [id number] [address] [place] [address] OF [place] 3-Hydroxyisovalerate /Creatinine (U) [Molar ratio] 5.0 umol/mmolCr Normal 2.1-27.3 [facility] Comment on above: Order Comment: Speci men Type: URINE SPECIMEN Ordering Facility: [facility] Address: [address] [place] [address] Performed By: #### L [id number] #### [facility] CLIA [id number] [address] [place] [address] [place] 3-Methylcrotonylglyc ine/Creatinine (U) [Molar ratio] <0.3 Normal <0.3 [facility] Comment on above: Order Comment: Speci men Type: URINE SPECIMEN Ordering Facility: [facility] Address: [address] Performed By: #### L [id number] #### [facility] CLIA [id number] [address] [place] [address] [place] 3-Methylglutaconate/ Creatinine (U) [Molar ratio] 0.7 umol/mmolCr Normal 0.0-2.0 [facility] Comment on above: Order Comment: Speci men Type: URINE SPECIMEN Ordering Facility: [facility] Address: [address] Performed By: #### L [id number] #### [facility] CLIA [id number] [address] [place] [address] [place] 3-Methylglutarate/Cr eatinine (U) [Molar ratio] 0.5 umol/mmolCr Normal 0.0-0.6 [facility] Comment on above: Order Comment: Speci men Type: URINE SPECIMEN Ordering Facility: [facility] Address: [address] Performed By: #### L [id number] #### [facility] CLIA [id number] [address] [place] [address] [place] 4-Hydroxyphenylaceta te/Creatinine (U) [Molar ratio] 149.0 umol/mmolCr High 5.7-147.5 [facility] Comment on above: Order Comment: Speci men Type: URINE SPECIMEN Ordering Facility[facility] Address: [address] Performed By: #### L [id number] #### [facility] CLIA [id number] [address] OF [place] 4-Hydroxyphenyllacta te/Creatinine (U) [Molar ratio] 4.3 umol/mmolCr Normal 1.3-23.0 [facility] Comment on above: Order Comment: Speci men Type: URINE SPECIMEN Ordering Facility: [facility] Address: [address] [place] [address] Performed By: #### L [id number] #### [facility] IA [id number] [address] [place] [address] [facility] OF [place] 4-Hydroxyphenylpyruv ate/Creatinine (U) [Molar ratio] 0.0 umol/mmolCr Normal <=0.0 [facility] Comment on above: Order Comment: Speci men Type: URINE SPECIMEN Ordering Facility: [facility] Address: [address] Performed By: #### L [id number] #### [facility] IA [id number] [address] [place] [address] OF [place] 5-Oxoproline/Creatin ine (U) [Molar ratio] 1.9 umol/mmolCr Normal 0.4-3.1 [facility] Comment on above: Order Comment: Speci men Type: URINE SPECIMEN Ordering Facility[facility] Address: [address] [place] [address] Performed By: #### L [id number] #### [facility] IA [id number] [address] [place] [address] [place] Acetoacetate/Creatin ine (U) [Molar ratio] <0.9 High 0.0-0.5 [facility] Comment on above: Order Comment: Speci men Type: URINE SPECIMEN Order[facility] Facility[facility] Address: [address] [place] [address] Performed By: #### L [id number] #### [facility] IA [id number] [address] [place] [address] [place] Aconitate/Creatinine (U) [Molar ratio] 14.8 umol/mmolCr Normal 8.5-109.6 [facility] Comment on above: Order Comment: Speci men Type: URINE SPECIMEN Order[facility] Facility[facility] Address: [address] [place] [address] Performed By: #### L [id number] #### [facility] CLIA [id number] [address] [place] [address] Adipate/Creatinine (U) [Molar ratio] 3.0 umol/mmolCr Normal 0.3-9.2 [facility] Comment on above: Order Comment: Speci men Type: URINE SPECIMEN Order[facility] Facility[facility] Address: [address] [place] [address] Performed By: #### L [id number] #### [facility] CLIA [id number] [address] [place] [address] OF [facility] Alpha hydroxybutyrate/Crea tinine (U) [Molar ratio] <1.0 Normal 0.0-2.7 [facility] Comment on above: Order Comment: Speci men Type: URINE SPECIMEN Ordering Facility: [facility] Address: [address] [place], [place] [address] Performed By: #### L [id number] #### [facility] CLIA [id number] [address] [place] [address] OF [place] Alpha ketoglutarate/Creati nine (U) [Molar ratio] 4.9 umol/mmolCr Normal 0.2-42.7 [facility] Comment on above: Order Comment: Speci men Type: URINE SPECIMEN Order[facility] Facility[facility] Address: [address] [place], [place] [address] Performed By: #### L [id number] #### [facility] CLIA [id number] [address] [place] [address] [place] Benzoate/Creatinine (U) [Molar ratio] <12.2 Normal 0.0-14.6 [facility] Comment on above: Order Comment: Speci men Type: URINE SPECIMEN Ordering [facility] Address: [address] Performed By: #### L [id number] #### [facility] CLIA [id number] [address] [place] [address] [place] Beta hydroxybutyrate/Crea tinine (U) [Molar ratio] <1.6 Normal 0.1-2.6 [facility] Comment on above: Order Comment: Speci men Type: URINE SPECIMEN Order[facility] Address: [address] Performed By: #### L [id number] #### [facility] CLIA [id number] [address] [place] [address] [place] Butyrylglycine/Creat inine (U) [Molar ratio] 0.0 umol/mmolCr Normal 0.0-0.7 [facility] Comment on above: Order Comment: Speci men Type: URINE SPECIMEN [facility] Address: [address] Performed By: #### L [id number] #### [facility] CLIA [id number] [address] [place] [address] [place] Creatinine (U) [Mass/Vol] 53.5 mg/dL Normal 42.2-237.9 [facility] Comment on above: Order Comment: Speci men Type: URINE SPECIMEN Order[facility] Address: [address] Performed By: #### L [id number] #### [facility] CLIA [id number] [address] [place] [address] [place] Ethylmalonate/Creati nine (U) [Molar ratio] 1.2 umol/mmolCr Normal 0.5-6.2 [facility] Comment on above: Order Comment: Speci men Type: URINE SPECIMEN [facility] Address: [address] Performed By: #### L [id number] #### [facility] IA [id number] [address] [place] [address] Fumarate/Creatinine (U) [Molar ratio] 0.9 umol/mmolCr Normal 0.3-2.6 [facility] Comment on above: Order Comment: Speci men Type: URINE SPECIMEN [facility] Address: [address] Performed By: #### L [id number] #### [facility] [place] [id number] [address] [place] [address] OF [place] Glutarate/Creatinine (U) [Molar ratio] 0.1 umol/mmolCr Normal 0.0-1.4 [facility] Comment on above: Order Comment: Speci men Type: URINE SPECIMEN Order[facility] Address: [address] Performed By: #### L [id number] #### [facility] IA [id number] [address] [place] [address] Hexanoylglycine/Crea tinine (U) [Molar ratio] 0.1 umol/mmolCr Normal 0.0-0.1 [facility] Comment on above: Order Comment: Speci men Type: URINE SPECIMEN [facility] Address: [address] [place] [address] Performed By: #### L [id number] #### [facility] IA [id number] [address] [place] [address] OF [place] Isobutyrylglycine/Cr eatinine (U) [Molar ratio] 0.6 umol/mmolCr Normal 0.0-1.2 [facility] Comment on above: Order Comment: Speci men Type: URINE SPECIMEN Order[facility] Address: [address] Performed By: #### L [id number] #### [facility] CLIA [id number] [address] OF [place] Isocitrate/Creatinin e (U) [Molar ratio] 48.3 umol/mmolCr Normal 9.1-271.9 [facility] Comment on above: Order Comment: Speci men Type: URINE SPECIMEN [facility] Address: [address] [place] [address] Performed By: #### L [id number] #### [facility] CLIA [id number] [address] [place] Lactate/Creatinine (U) [Molar ratio] 9.8 umol/mmolCr Normal 2.9-47.2 [facility] Comment on above: Order Comment: Speci men Type: URINE SPECIMEN [facility] Address: [address] [place] [address] Performed By: #### L [id number] #### [facility] CLIA [id number] [address] [place] [address] [place] Malate/Creatinine (U) [Molar ratio] 0.3 umol/mmolCr Normal 0.0-1.1 [facility] Comment on above: Order Comment: Speci men Type: URINE SPECIMEN [facility] Facility[facility] Address: [address], [place] Performed By: #### L [id number] #### [facility] CLIA [id number] [address] [place] Malonate/Creatinine (U) [Molar ratio] 0.0 umol/mmolCr Normal 0.0-0.1 [facility] Comment on above: Order Comment: Speci men Type: URINE SPECIMEN [facility]ing Facility: [facility] Address: [address], [place] Performed By: #### L [id number] #### [facility] CLIA [id number] [address] [place] [address] [place] Methylmalonate/Creat inine (U) [Molar ratio] <0.4 Normal 0.0-0.6 [facility] Comment on above: Order Comment: Speci men Type: URINE SPECIMEN Ordering Facility: [facility] Address: [address] [address] Performed By: #### L [id number] #### [facility] CLIA [id number] [address] [place] [address] [place] Methylsuccinate/Crea tinine (U) [Molar ratio] 0.2 umol/mmolCr Normal 0.0-1.4 [facility] Comment on above: Order Comment: Speci men Type: URINE SPECIMEN Ordering Facility: [facility] Address: [address] [place], [place] [address] Performed By: #### L [id number] #### [facility] CLIA [id number] [address] [place] [address] [place] N-acetylaspartate/Cr eatinine (U) [Molar ratio] 1.6 umol/mmolCr Normal 0.1-8.9 [facility] Comment on above: Order Comment: Speci men Type: URINE SPECIMEN [facility]ing Facility: [facility] Address: [address] [place], [place] [address] Performed By: #### L [id number] #### [facility] CLIA [id number] [address] [place] [address] [place] N-acetyltyrosine/Cre atinine (U) [Molar ratio] <0.2 Normal 0.0-1.2 [facility] Comment on above: Order Comment: Speci men Type: URINE SPECIMEN [facility]ing Facility: [facility] Address: [address] [place], [place] [address] Performed By: #### L [id number] #### [facility] CLIA [id number] [address] [place] [address] [place] Oxalate/Creatinine (U) [Molar ratio] <1.0 Normal 0.7-12.4 [facility] Comment on above: Order Comment: Speci men Type: URINE SPECIMEN Ordering Facility: [facility] Address: [address] Performed By: #### L [id number] #### [facility] CLIA [id number] [address] [place] [address] [place] Pyruvate/Creatinine (U) [Molar ratio] <0.2 Normal 0.1-2.6 [facility] Comment on above: Order Comment: Speci men Type: URINE SPECIMEN [facility] Address: [address] [address] Performed By: #### L [id number] #### [facility] CLIA [id number] [address] [place] [address] [place] Sebacate (C8)/Creatinine (U) [Molar ratio] 0.0 umol/mmolCr Normal [facility] Comment on above: Order Comment: Speci men Type: URINE SPECIMEN Ordering Facility: [facility] Address: [address] Performed By: #### L [id number] #### [facility] CLIA [id number] [address] [place] [address] [place] Suberate/Creatinine (U) [Molar ratio] 2.5 umol/mmolCr Normal 0.0-7.4 [facility] Comment on above: Order Comment: Speci men Type: URINE SPECIMEN Ordering Facility: [facility] Address: [address] Performed By: #### L [id number] #### [facility] CLIA [id number] [address] [place] [address] [place] Suberylglycine/Creat inine (U) [Molar ratio] 0.0 umol/mmolCr Normal <=0.0 [facility] Comment on above: Order Comment: Speci men Type: URINE SPECIMEN Ordering Facility: [facility] Address: [address] [address] Performed By: #### L [id number] #### [facility] CLIA [id number] [address] [place] [address] Succinate/Creatinine (U) [Molar ratio] 1.8 umol/mmolCr Normal 0.3-27.4 [facility] Comment on above: Order Comment: Speci men Type: URINE SPECIMEN [facility]ing Facility: [facility] Address: [address] [address] Performed By: #### L [id number] #### [facility] CLIA [id number] [address] [place] [address] Succinylacetone/Crea tinine (U) [Molar ratio] <0.4 Normal <0.4 [facility] Comment on above: Order Comment: Speci men Type: URINE SPECIMEN [facility]ing Facility: [facility] Address: [address] [place] [address] Performed By: #### L [id number] #### [facility] CLIA [id number] [address] [place] [address] [place] UOA CONSULTATION Normal [facility] Comment on above: Order Comment: Speci men Type: URINE SPECIMEN [facility]ing Facility: [facility] Address: [address] [place] [address] Result Comment: This urine organic acid analysis [...] and its performance characteristics determined by the [facility]. It has not been cleared or approved by the US Food and Drug Administration. The FDA had determined that such clearance or approval is not necessary. Performed By: #### L [id number] #### [facility] CLIA [id number] [address] [place] [address] [place] UOA REVIEW Reviewed by Patrick Proctor MD, Ph.D ([id number]) Normal [facility] Comment on above: Order Comment: Speci men Type: URINE SPECIMEN [facility] Address: [address] [place] [address] Performed By: #### L [id number] #### [facility] CLIA [id number] [address] [place] [address] [place] Uracil/Creatinine (U) [Molar ratio] 0.9 umol/mmolCr Normal 0.0-5.1 [facility] Comment on above: Order Comment: Speci men Type: URINE SPECIMEN [facility] Address: [address] [place] [address] Performed By: #### L [id number] #### [facility] CLIA [id number] [address] [place] [address] [place] PYRUVATE+LACTATE BLon 2022 Lactate [Moles/Vol] 1.2 mmol/L Normal 0.5-2.2 [facility] Comment on above: Order Comment: Speci men Type: BLOOD SPECIMEN [facility] Address: [address] [place] [address] Result Comment: This test was developed and its performance characteristics determined by [facility] Fuad JRajesh [facility] [place] ([facility]). It has not been cleared or approved by the FDA. [facility] is regulated under CLIA as qualified to perform high-complexity testing. This test is used for clinical purposes. It should not be regarded as investigational or for research. Performed By: #### L ACPYR #### [facility] CLIA [id number] [address] [place] [address] [place] Pyruvate (Bld) [Moles/Vol] 0.04 mmol/L Normal 0.03-0.10 [facility] Comment on above: Order Comment: Rl basilio Type: BLOOD SPECIMEN [facility] Address: [address] [id number] Result Comment: This test was developed and its performance characteristics determined by [facility] [place] ([facility] It has not been cleared or approved by the FDA. -[facility] is regulated under CLIA as qualified to perform high-complexity testing. This test is used for clinical purposes. It should not be regarded as investigational or for research. Performed By: #### L ACPYR #### [facility] CLIA [id number] [address] [place] [address] [place] T4 Free SerPl-mCncon 023 Free T4 [Mass/Vol] 1.3 ng/dL Normal 0.9-1.7 [facility] Comment on above: Order Comment: Rl basilio Type: BLOOD SPECIMEN [facility] Address: [address] [place] [address] Performed By: #### 3 016-3, 1987-, 2156-09 #### [facility] CLIA [id number] [address] [facility] [place] [address] [place] TSH SerPl-aCncon 10-17-2022 TSH Qn 2.050 m[IU]/L Normal 0.270-4.200 [facility] Comment on above: Order Comment: Rl basilio Type: BLOOD SPECIMEN [facility] Address: [address] [id number] Result Comment: If t he patient is , TSH reference range varies by gestational period: First Trimester (weeks 9-12): 0.180-2.990 mIU/L Second Trimester: 0.110-3.980 mIU/L Third Trimester: 0.480-4.710 mIU/L Olman Rodriguez et al. A Practical Approach for the Verifications and Determination of Site- and Trimester-Specific Reference Intervals for Thyroid Function tests in . Thyroid, 2019:29:3:412-420. Reji E, et al. 2017 Guidelines of the [place] Thyroid Association for the Diagnosis and Management of Thyroid Disease during and the . Thyroid, 2017:27:3:315-389. Performed By: #### 3 016-3, 1987-08, 2156-09 #### [facility] CLIA [id number] [address] [place] [address] [place] VOLTAGE GATED CA IGGon 10-17 P/Q-TYPE CALCIUM CHANNEL ANTIBODY 10.1 pmol/L Normal 0.0-24.5 [facility] Comment on above: Order Comment: Specmaribel basilio Type: BLOOD SPECIMEN [facility] Address: [address] [place] [address] Result Comment: INTE RPRETIVE INFORMATION: P/Q-Type Calcium Channel Antibody 0.0 to 24.5 pmol/L ............. Negative 24.6 to 45.6 pmol/L ............ Indeterminate 45.7 pmol/L or greater.......... Positive This test was developed and its performance characteristics determined by [facility]. It has not been cleared or approved by the US Food and Drug Administration. This test was performed in a CLIA certified laboratory and is intended for clinical purposes. Performed By: [facility] [address] [place] [address] Shift Boss: Terry Jacome MD, PhD Performed By: #### 3 016-3, 1987-08, 2156-09 #### [facility] CLIA [id number] [address] [place] [address] [place] VOLTAGE-GATED POTASSIUM VARGAS ABon 10-17-2022 VOLTAGE-GATED POTASSIUM CHANNEL AB, SER 0 pmol/L Normal 0-31 [facility] Comment on above: Order Comment: Specmaribel basilio Type: BLOOD SPECIMEN [facility] Address: [address] [place] [address] Result Comment: INTE RPRETIVE INFORMATION: Voltage-Gated Potassium [...] developed and its performance characteristics determined by [facility]. It has not been cleared or approved by the US Food and Drug Administration. This test was performed in a CLIA certified laboratory and is intended for clinical purposes. Performed By: [facility] [address] [place] [address] Shift Boss: Terry Jacome MD, PhD Performed By: #### 3 016-3, 1987-, [address] #### [facility] CLIA [id number] [address] [facility] [place] [address] [place] NM GASTRIC EMPTYING SOLIDon 09-12-2022 NM GASTRIC EMPTYING SOLID * * *Final Report* * * DATE OF EXAM: Sep 12 2022 2:44PM [facility] 0017 - NM GASTRIC EMPTYING SOLID / [...] 4 HOURS IS CONSISTENT WITH SEVERE GASTROPARESIS. 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 Date/Time: Sep 12 2022 3:02P Dictated by : LUZ MARINA VÁZQUEZ MD This examination was interpreted and the report reviewed and electronically signed by: LUZ MARINA VÁZQUEZ MD on Sep 12 2022 3:05PM EST [id number] [facility] 09-09-2022 CNPN Telephone (AVXRMO) BELGICA HARPER ([id number]) 1990 F Date Time Provider Department 09/09/22 DIEGO RICKS AVXRCT During your visit today, we recorded the [...] Status:Closed by DIEGO RICKS on 09/09/22 Normal [facility] CITRATE URINE 24HRon 03-2 023 Citric Acid, U, 24hr 472 mg/24 hr Normal 320-1240 Th e [facility] Comment on above: Result Comment: This test was developed and its performance characteristics determined by [facility]. It has not been cleared or approved by the Food and Drug Administration. Performed By: #### A [facility] #### [facility] [address] [address] [address] Li Nagel Citric Acid, Urine 472 mg/L Normal Undefined The [facility] Comment on above: Performed By: #### A LPHPHN #### [facility] [address] [place], [place] [address] Dr. Li Nagel OXALATE 24HR URINEon 07-11-2 023 Oxalates, Urine 19 mg/L Normal Undefined The [facility] Comment on above: Performed By: #### O [id number] #### [facility] [address] [id number] Li Nagel Oxalates, Urine 24hr 19 mg/24 hr Normal 4-31 [facility] Comment on above: Performed By: #### O [id number] #### [facility] [address] [place] [address] Dr. Li Nagel MAGNESIUM 24HR URINEon 07-09 Magnesium 24hr Urine 45.0 mg/24 hr Normal 12.0-293.0 [facility] Comment on above: Performed By: #### I MMUN G #### [facility] [address] [place] [address] Dr. Li Nagel Magnesium UR 4.5 mg/dL Normal Not Estab. The [facility] Comment on above: Performed By: #### I MMUN G #### [facility] [address] [place] [address] Dr. Li Nagel PHOSPHORUS 24HR URINEon 06-22 Phosphorus, Urine 51.4 mg/dL Normal Not Estab. The [facility] Comment on above: Performed By: #### P HOS 24 #### [facility] [address] [place] [address] Dr. Li Nagel Phosphorus, Urine 24hr 514 mg/24 hr Normal 261-1078 [facility] Comment on above: Performed By: #### P HOS 24 #### [facility] [address] [address] [address] Li Nagel URIC ACID 24 HR URINEon 06-22 Uric Acid, Urine 64.0 mg/dL Normal Not Estab. The [facility] Comment on above: Performed By: #### A LPHPHN #### [facility] [address] [place] [address] Dr. Li Nagel Uric Acid, Urine 24hr 640.0 mg/24 hr Normal 173.7-902.1 [facility] Comment on above: Performed By: #### A LPHPHN #### [facility] [address] [place] [address] Dr. Li Nagel CALCIUM 24 HR URINEon 2022 CALC, 24 HR UR 155.0 mg/24 hr Normal 100.0-300.0 [facility] Comment on above: Performed By: #### I MMUN G #### [facility] [address] [place] [address] Dr. Li Nagel UR CALCIUM 15.5 mg/dL Normal 5.1-21.0 [facility] Comment on above: Performed By: #### I MMUN G #### [facility] [address] [place] [address] Dr. Li Nagel UR TOT VOL 1000 ml/24 HR Normal The [facility] Comment on above: Performed By: #### I MMUN G #### [facility] [address] [place] [address] Dr. Li Nagel Performed By: #### A LPHPHN #### [facility] [address] [place] [address] Dr. Li Nagel CREA 24 HR URINEon CREA, 24 HR UR 1891.80 mg/24 hr Critically high 800.00 -1,800. 00 [facility] Comment on above: Performed By: #### A LPHPHN #### [facility] [address] [place] [address] Dr. Li Nagel URINE CREAT 189.18 mg/dL Normal 20.00-300.00 The [facility] Comment on above: Performed By: #### A LPHPHN #### [facility] [address] [place] [address] Dr. Li Nagel PTH INTACTon 07-08-2022 PTH, Intact 41 pg/mL Normal 15-65 [facility] Comment on above: Performed By: #### H EPACUT #### [facility] [address] [place] [address] Dr. Li Nagel SODIUM 24 HR URINEon 07-08-2 023 NA, 24 HR UR 149 mmol/24 hr Normal 40-220 [facility] Comment on above: Performed By: #### A LPHPHN #### [facility] [address] [place] [address] Dr. Li Nagel Sodium (U) [Moles/Vol] 149 mmol/L Critically high 30-90 [facility] Comment on above: Performed By: #### A LPHPHN #### [facility] [address] [place] [address] Dr. Li Nagel BUNon 07-06-2022 Urea nitrogen [Mass/Vol] 11.0 mg/dL Normal 7.0-18.0 [facility] Comment on above: Performed By: #### B UN, URIC, CA, K, NA, CL, CO2, CREA #### [facility] [address] [place] [address] Dr. Li Nagel CALCIUMon 07-06-2022 Calcium [Mass/Vol] 9.0 mg/dL Normal 8.5-10.1 [facility] Comment on above: Performed By: #### B UN, URIC, CA, K, NA, CL, CO2, CREA #### [facility] [address] [place] [address] Dr. Li Nagel CHLORIDEon 07-06-2022 Chloride [Moles/Vol] 107 mmol/L Normal 98-107 [facility] Comment on above: Performed By: #### I MMUN G #### [facility] [address] [place] [address] Dr. Li Nagel CO2on 07-06-2022 CO2 [Moles/Vol] 29.2 mmol/L Normal 21.0-32.0 [facility] Comment on above: Performed By: #### I MMUN G #### [facility] [address] [place] [address] Dr. Li Nagel CREATININEon 07-06-2022 Creatinine [Mass/Vol] 0.97 mg/dL Normal 0.55-1.02 [facility] Comment on above: Performed By: #### B UN, URIC, CA, K, NA, CL, CO2, CREA #### [facility] [address] [place] [address] Dr. Li Nagel EGFR-AF [facility] >60 Normal >=60 [facility] Comment on above: Performed By: #### B UN, URIC, CA, K, NA, CL, CO2, CREA #### [facility] [address] [place] [address] Dr. Li Nagel EGFR-NON AF [facility] >60 Normal >=60 [facility] Comment on above: Performed By: #### B UN, URIC, CA, K, NA, CL, CO2, CREA #### [facility] [address] [place] [address] Dr. Li Nagel NAon 07-06-2022 Sodium [Moles/Vol] 143 mmol/L Normal 136-145 [facility] Comment on above: Performed By: #### I MMUN G #### [facility] [address] [place] [address] Dr. Li Nagel POTASSIUMon 07-06-2022 Potassium [Moles/Vol] 3.6 mmol/L Normal 3.5-5.1 [facility] Comment on above: Performed By: #### I MMUN G #### [facility] [address] [place] [address] Dr. Li Nagel URIC ACID SERUMon 07-06-2022 Urate [Mass/Vol] 4.7 mg/dL Normal 2.6-6.0 [facility] Comment on above: Performed By: #### B UN, URIC, CA, K, NA, CL, CO2, CREA #### [facility] [address] [place] [address] Dr. Li Nagel XR KUB 1 VIEWon [...] by: JACKSON ADKINS Date: 2022-06-30 07:02 Normal [facility] US ABD RIGHT UPPER QUADRANTo n 06-15-2022 US ABD RIGHT UPPER QUADRANT * * *Final Report* * * DATE OF EXAM: Jun 15 2022 8:13PM U 1032 - US ABD RIGHT UPPER QUADRANT [...] nephrocalcinosis and a few right renal stones. 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 Date/Time: Jun 16 2022 7:46A Dictated by : MINERVA LIM MD This examination was interpreted and the report reviewed and electronically signed by: MINERVA LIM MD on Jun 16 2022 7:48AM EST [id number] Normal [facility] US ABD RT UPPER QUADRANTon 0 06-15-2022 [facility] CT ABD/PEL WO IVCONon 2022 Radiology Result ACTIONABLE Abnormal [facility] No Panel Informationon 05-27 [facility] XR CHEST 2V FRONTAL/LATon XR CHEST 2V [...] tissues: Unremarkable. IMPRESSION: No acute radiographic abnormality. 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: [facility] Transcribe Date/Time: May 27 2022 12:39P Dictated by : MARCELA STILL MD This examination was interpreted and the report reviewed and electronically signed by: MARCELA STILL MD on May 27 2022 12:39PM EST [id number] Normal [facility] [id number] PHENOTYP [facility] 05-11-2022 Alnjn-8-Olmnsdkjpbr, Serum 130 mg/dL Normal 100-188 [facility] Comment on above: Result Comment: Perf ormed at: CB Performed By: #### A LPHPHN #### [facility] [address] [place] [address] Dr. Li Nagel Phenotype (PI) MM Normal [facility] Comment on above: Result Comment: Phen otype [...] Ranges used to confirm phenotype. Performed at: Performed By: #### A [facility] #### [facility] [address] [place], [place] [address] Dr. Li Nagel HEREDITARY HEMOCHROMATOSIS, DNA ANALYSISon 05-11-2022 Hereditary Hemochromatosis Comment Normal [facility] Comment on above: Result Comment: Resu lt: c.845G>A (p.Avv522Mvw) - Not Detected c.187C>G (p.Msu93Qgi) - Not Detected c.193A>T (p.Mdp64Yea) - Not Detected Not associated with increased [...] for patients who are homozygous for c.845G>A (p.Zcp245Xnu) and have yet to experience clinical symptoms. . Comments: The most common HFE variants associated with hereditary hemochromatosis are c.845G>A (p.Ypt003Ajw), c.187C>G (p.Hxi82Kaq), c.193A>T (p.Efh30Zsi). While patients homozygous for c.845G>A (p.Ovk041Gtx) are the most likely to present clinical symptoms, less than 10% develop clinically significant iron overload with tissue and organ damage. . Genetic counseling is recommended to discuss the potential clinical implications of positive results, as well as recommendations for testing family members. Genetic Coordinators are available for health care providers to discuss results at [phone]). . Test Details: Three variants analyzed: c.845G>A (p.Zki705Pdp), commonly referred to as C282Y c.187C>G (p.Hbs96Llv), commonly referred to as H63D c.193A>T (p.Ldo35Byy), commonly referred to as S65C . Methods/Limitations: [...] developed and its performance characteristics determined by [employer]. It has not been cleared or approved by the Food and Drug Administration. . References: Brodie BR, Yoav PC, Deborah KV, Raymond LW, Ramsey ; [place] Association for the Study of Liver Diseases. Diagnosis and management of hemochromatosis: 2011 practice guideline by the [place] Association for the Study of Liver Diseases. Hepatology. 2010;54(1):328-43. doi: 10.1002/hep.97597. PMID: 47797386; PMCID: [id number]. Cora G, Olegario P, Fabio DW, Tabatha H, Love O, Zev S, Vazquez I, Kofi M, Sunitha S. [facility] best practice guidelines for the molecular genetic diagnosis of hereditary hemochromatosis (HH). Eur J Hum Margaret. 2016 Jul;24(4):479-95. doi: 10.1038/ejhg.2015.128. Epub 2014Oct 29. PMID: 48930182; PMCID: [id number]. . Kenya Hager, PhD, FACMG Dm Reyna, PhD Alexandro Rodriguez, PhD, [employer] Jhony Hammond, PhD, [employer] Oumar Avila, PhD, [employer] Rob Brand, PhD, [employer]MG Pascale Gracia, PhD, FACMG Lala Marvin, PhD, FACMG Performed By: #### H [facility] #### [facility] [address] [place] [address] Dr. Li Nagel DENY by IFAon 05-06-2022 Antinuclear Antibodies, IFA Negative Normal [facility] Comment on above: Result Comment: Nega tive <1:80 Borderline 1:80 Positive >1:80 ICAP nomenclature: AC-0 For more information about Hep-2 cell patterns use ANApatterns.org, the official website for the International Consensus on Antinuclear Antibody (DENY) Patterns (ICAP). Performed By: #### A LPHPHN #### [facility] [address] [place] [address] Dr. Li Nagel CERULOPLASMINon 05-05-2022 Ceruloplasmin 27.9 mg/dL Normal 19.0-39.0 The [facility] Comment on above: Performed By: #### H EPACUT #### [facility] [address] [place] [address] Dr. Li Nagel HEPATITIS A AB IGMon 023 Hep A Ab, IgM Negative Normal Negative [facility] Comment on above: Performed By: #### I MMUN G #### [facility] [address] [place] [address] Dr. Li Nagel IMMUNOGLOBULIN G INDEX SERUM OR CSFon 05-05-2022 Albumin [Mass/Vol] 4.8 g/dL Normal 3.8-4.8 [facility] Comment on above: Performed By: #### I MMUN G #### [facility] [address] [place] [address] Dr. Li Nagel Albumin, CSF NSPINL Normal [facility] Comment on above: Result Comment: Test not performed. No spinal fluid received. contacted Radha at your facility on 05-05-2022 Performed By: #### I MMUN G #### [facility] [address] [place] [address] Dr. Li Nagel CSF IgG Index UPTCAL Normal [facility] Comment on above: Result Comment: Unab le to calculate result since non-numeric result obtained for component test. Performed By: #### I MMUN G #### [facility] [address] [place] [address] Dr. Li Nagel IgG, Quant, CSF NSPINL Normal [facility] Comment on above: Result Comment: Test not performed. No spinal fluid received. contacted Radha at your facility on 05-05-2022 Performed By: #### I MMUN G #### [facility] [address] [place] [address] Dr. Li Nagel IgG/Alb Ratio, CSF UPTCAL Normal [facility] Comment on above: Result Comment: Unab le to calculate result since non-numeric result obtained for component test. Performed By: #### I MMUN G #### [facility] [address] [address] [address] Li Nagel Immunoglobulin G, Qn, Serum 971 mg/dL Normal 586-1602 [facility] Comment on above: Performed By: #### I MMUN G #### [facility] [address] [place] [address] Dr. Li Nagel LIVER-KIDNEY MICROSOMAL (LKM ) ABon 05-05-2022 Liver-Kidney Microsomal Ab 1.3 Units Normal 0.0-20.0 [facility] Comment on above: Result Comment: Nega tive 0.0 - 20.0 Equivocal 20.1 - 24.9 Positive >24.9 . LKM type 1 antibodies are detected in patients with autoimmune hepatitis type 2 and in up to 8% of patients with chronic HCV infection. Performed By: #### H EPACUT #### [facility] [address] [place] [address] Dr. Li Nagel MITICHONDRIAL (M2) ANTIBODYo n 05-05-2022 Mitochondrial (M2) Antibody <20.0 Normal 0.0-20.0 [facility] Comment on above: Result Comment: Nega tive 0.0 - 20.0 Equivocal 20.1 - 24.9 Positive >24.9 . Mitochondrial (M2) Antibodies are found in 90-96% of patients with primary biliary cirrhosis. Performed By: #### A LPHPHN #### [facility] [address] [address] [address] Li Nagel SMOOTH MUSCLE ANTIBODYon Actin (Smooth Muscle) Antibody 9 Units Normal 0-19 [facility] Comment on above: Result Comment: Nega tive 0 - 19 Weak positive 20 - 30 Moderate to strong positive >30 . Actin Antibodies are found in 52-85% of patients with autoimmune hepatitis or chronic active hepatitis and in 22% of patients with primary biliary cirrhosis. Performed By: #### A LPHPHN #### [facility] [address] [address] [address] Li Nagel FERRITINon 05-03-2022 Ferritin [Mass/Vol] 319.0 ng/mL Critically high 6.2-137.0 [facility] Comment on above: Performed By: #### A LPHPHN #### [facility] [address] [address] [address] Li Nagel PAP ACOG PANEL 2: 30 to 65on 04-28-2022 . . Normal [facility] Comment on above: Result Comment: Perf ormed at: BA Performed By: #### I MMUN G #### [facility] [address] [address] [address] Li Nagel Age Gdln ACOG Testing - Normal [facility] Comment on above: Performed By: #### I MMUN G #### [facility] [address] [address] [address] iL Nagel DIAGNOSIS: Comment Normal [facility] Comment on above: Result Comment: NEGA TIVE FOR INTRAEPITHELIAL LESION OR MALIGNANCY. Performed at: BA Performed By: #### I MMUN G #### [facility] [address] [address] [address] Li Nagel HPV Aptima Negative Normal Negative [facility] Comment on above: Result Comment: This nucleic acid amplification test detects fourteen high-risk HPV types (16,18,31,33,35,39,45,51,52,56,58,59,66,68) without differentiation. Performed at: =G Performed By: #### I MMUN G #### [facility] [address] [address] [address] Li Nagel HPV Genotype Reflex Comment Normal [facility] Comment on above: Result Comment: Crit eria not met, HPV Genotype not performed. Performed at: BA Performed By: #### I MMUN G #### [facility] [address] [place] [address] Dr. Li Nagel Methodology: Comment Normal [facility] Comment on above: Result Comment: This liquid based ThinPrep(R) pap test was screened with the use of an image guided system. Performed at: WB Performed By: #### I MMUN G #### [facility] [address] [place] [address] Dr. Li Nagel Note: Comment Normal [facility] Comment on above: Result Comment: The Pap [...] Performed By: #### I MMUN G #### [facility] [address] [place] [address] Dr. Li Nagel Performed by: Comment Normal [facility] Comment on above: Result Comment: Gretta Holly Pot Room Tapper (ASCP) Performed at: BA Performed By: #### I MMUN G #### [facility] [address] [place] [address] Dr. Li Nagel Specimen adequacy: Comment Normal [facility] Comment on above: Result Comment: Sati sfactory for evaluation. No endocervical component is identified. Performed at: BA Performed By: #### I MMUN G #### [facility] [address] [place] [address] Dr. Li Nagel HEPATITIS PANEL, ACUTEon HBsAg Screen Negative Normal Negative [facility] Comment on above: Performed By: #### H EPACUT #### [facility] [address] [place] [address] Dr. Li Nagel HCV AB <0.1 Normal 0.0-0.9 [facility] Comment on above: Performed By: #### H EPACUT #### [facility] [address] [place] [address] Dr. Li Nagel Hep A Ab, IgM Negative Normal Negative [facility] Comment on above: Performed By: #### H EPACUT #### [facility] [address] [place], [place] [address] Dr. Li Nagel Hep B Core Ab, IgM Negative Normal Negative [facility] Comment on above: Performed By: #### H EPACUT #### [facility] [address] [place], [place] [address] Dr. Li Nagel Interpretation: Comment Normal [facility] Comment on above: Result Comment: Nega tive Not infected with HCV, unless recent infection is suspected or other evidence exists to indicate HCV infection. Performed By: #### H EPACUT #### [facility] [address] [place], [place] [address] Dr. Li Nagel US PELVIS AND TRANSVAGon [...] LAURIE CRUZ Date: 2021-12-22 09:50 Normal [facility] US ABD RT UPPER QUADRANTon 0 12-10-2021 [facility] US PELVIS AND TRANSVAGon US PELVIS AND [...] LAURIE CRUZ Date: 2021-10-28 13:01 Normal [facility] VAGINITIS/VAGINOSIS DNA PROB Kwasi 10-21-2021 Sarah species Negative Normal Negative [facility] Comment on above: Performed By: #### I MMUN G #### [facility] [address] [place] [address] Dr. Li Nagel Gardnerella vaginalis Negative Normal Negative [facility] Comment on above: Performed By: #### I MMUN G #### [facility] [address] [place] [address] Dr. Li Nagel Trichomonas vaginalis Negative Normal Negative [facility] Comment on above: Performed By: #### I MMUN G #### [facility] [address] [place] [address] Dr. Li Nagel CBC AUTO DIFFon 10-20-2021 BASO # 0.0 103/ul Normal 0.0-0.1 [facility] Comment on above: Performed By: #### A LPHPHN #### [facility] [address] [place] [address] Dr. Li Nagel Basophils/100 WBC (Bld) 0.4 % Normal 0.2-2.0 [facility] Comment on above: Performed By: #### A LPHPHN #### [facility] [address] [place] [address] Dr. Li Nagel EO # 0.2 103/ul Normal 0.0-0.7 [facility] Comment on above: Performed By: #### A LPHPHN #### [facility] [address] [place] [address] Dr. Li Nagel Eosinophils/100 WBC (Bld) 2.6 % Normal 0.9-7.0 [facility] Comment on above: Performed By: #### A LPHPHN #### [facility] [address] [place] [address] Dr. Li Nagel Erythrocyte distribution width (RBC) [Ratio] 12.6 % Normal 11.0-15.0 [facility] Comment on above: Performed By: #### A LPHPHN #### [facility] [address] [place] [address] Dr. Li Nagel Hematocrit (Bld) [Volume fraction] 40.0 % Normal 36.0-48.0 [facility] Comment on above: Performed By: #### A LPHPHN #### [facility] [address] [place] [address] Dr. Li Nagel Hemoglobin (Bld) [Mass/Vol] 13.3 g/dL Normal 12.0-16.0 [facility] Comment on above: Performed By: #### A LPHPHN #### [facility] [address] [place] [address] Dr. Li Nagel IG # 0.06 10e3/ul Critically high 0.00-0.03 [facility] Comment on above: Performed By: #### A LPHPHN #### [facility] [address] [place] [address] Dr. Li Nagel IG % 0.9 % Critically high 0.0-0.5 [facility] Comment on above: Performed By: #### A LPHPHN #### [facility] [address] [place] [address] Dr. Li Nagel LYMPH # 2.2 103/ul Normal 1.2-3.8 [facility] Comment on above: Performed By: #### A LPHPHN #### [facility] [address] [place] [address] Dr. Li Nagel Lymphocytes/100 WBC (Bld) 31.0 % Normal 20.5-60.0 [facility] Comment on above: Performed By: #### A LPHPHN #### [facility] [address] [place] [address] Dr. Li Nagel MANUAL DIFF REQ NO Normal [facility] Comment on above: Performed By: #### A LPHPHN #### [facility] [address] [place] [address] Dr. Li Nagel MCH (RBC) [Entitic mass] 31.4 pg Normal 26.7-34.0 [facility] Comment on above: Performed By: #### A LPHPHN #### [facility] [address] [place] [address] Dr. Li Naegl MCHC (RBC) [Mass/Vol] 33.3 g/dL Normal 29.9-35.2 [facility] Comment on above: Performed By: #### A LPHPHN #### [facility] [address] [place] [address] Dr. Li Nagel MCV (RBC) [Entitic vol] 94.3 fL Normal 81.0-99.0 [facility] Comment on above: Performed By: #### A LPHPHN #### [facility] [address] [place] [address] Dr. Li Nagel MONO # 0.5 103/ul Normal 0.3-0.8 [facility] Comment on above: Performed By: #### A LPHPHN #### [facility] [address] [place] [address] Dr. Li Nagel Monocytes/100 WBC (Bld) 6.9 % Normal 1.7-12.0 [facility] Comment on above: Performed By: #### A LPHPHN #### [facility] [address] [place] [address] Dr. Li Nagel NEUT # 4.1 103/ul Normal 1.4-6.5 [facility] Comment on above: Performed By: #### A LPHPHN #### [facility] [address] [place] [address] Dr. Li Nagel Neutrophils/100 WBC (Bld) 58.2 % Normal 43.0-75.0 [facility] Comment on above: Performed By: #### A LPHPHN #### [facility] [address] [place] [address] Dr. Li Nagel Platelet mean volume (Bld) [Entitic vol] 11.0 fL Normal 9.5-13.5 [facility] Comment on above: Performed By: #### A LPHPHN #### [facility] [address] [place] [address] Dr. Li Nagel PLT 211 103/ul Normal 150-450 [facility] Comment on above: Performed By: #### A LPHPHN #### [facility] [address] [place] [address] Dr. Li Nagel RBC 4.24 106/ul Normal 4.20-5.40 [facility] Comment on above: Performed By: #### A LPHPHN #### [facility] [address] [place] [address] Dr. Li Nagel WBC 7.0 103/ul Normal 4.0-11.0 [facility] Comment on above: Performed By: #### A LPHPHN #### [facility] [address] [place] [address] ABD/PELV W CONon [...] DOLORES MOON Date: 2021-10-20 14:53 Normal [facility] OCC BLD IMMUNO SCREENon 09-23 OCCULT BLOOD Negative Normal NEGATIVE [facility] Comment on above: Performed By: #### O BSCRN #### [facility] [address] [place] [address] Dr. Li Nagel PROF 14(COMP METB)on 022 Albumin [Mass/Vol] 3.7 g/dL Normal 3.4-5.0 [facility] Comment on above: Performed By: #### A LPHPHN #### [facility] [address] [place] [address] Dr. Li Nagel Albumin/Globulin [Mass ratio] 1.2 {ratio} Normal [facility] Comment on above: Performed By: #### A LPHPHN #### [facility] [address] [place] [address] Dr. Li Nagel ALP [Catalytic activity/Vol] 86 U/L Normal 46-116 [facility] Comment on above: Performed By: #### A LPHPHN #### [facility] [address] [place] [address] Dr. Li Nagel ALT [Catalytic activity/Vol] 109 U/L Critically high 14-59 [facility] Comment on above: Performed By: #### A LPHPHN #### [facility] [address] [place] [address] Dr. Li Nagel Anion gap [Moles/Vol] 7.8 mmol/L Normal [facility] Comment on above: Performed By: #### A LPHPHN #### [facility] [address] [place] [address] Dr. Li Nagel AST [Catalytic activity/Vol] 57 U/L Critically high 15-37 [facility] Comment on above: Performed By: #### A LPHPHN #### [facility] [address] [place] [address] Dr. Li Nagel Bilirubin [Mass/Vol] 0.4 mg/dL Normal 0.2-1.0 [facility] Comment on above: Performed By: #### A LPHPHN #### [facility] [address] [place] [address] Dr. Li Nagel Calcium [Mass/Vol] 8.9 mg/dL Normal 8.5-10.1 [facility] Comment on above: Performed By: #### A LPHPHN #### [facility] [address] [place] [address] Dr. Li Nagel Chloride [Moles/Vol] 104 mmol/L Normal 98-107 [facility] Comment on above: Performed By: #### A LPHPHN #### [facility] [address] [place] [address] Dr. Li Nagel CO2 [Moles/Vol] 27.7 mmol/L Normal 21.0-32.0 [facility] Comment on above: Performed By: #### A LPHPHN #### [facility] [address] [place] [address] Dr. Li Nagel Creatinine [Mass/Vol] 0.78 mg/dL Normal 0.55-1.02 [facility] Comment on above: Performed By: #### A LPHPHN #### [facility] [address] [place] [address] Dr. Li Nagel EGFR-AF [facility] >60 Normal >=60 [facility] Comment on above: Performed By: #### A LPHPHN #### [facility] [address] [place] [address] Dr. Li Nagel EGFR-NON AF [facility] >60 Normal >=60 [facility] Comment on above: Performed By: #### A LPHPHN #### [facility] [address] [place] [address] Dr. Li Nagel Globulin (S) [Mass/Vol] 3.2 g/dL Normal [facility] Comment on above: Performed By: #### A LPHPHN #### [facility] [address] [place] [address] Dr. Li Nagel Glucose [Mass/Vol] 104 mg/dL Normal 74-106 [facility] Comment on above: Performed By: #### A LPHPHN #### [facility] [address] [place] [address] Dr. Li Nagel Potassium [Moles/Vol] 3.5 mmol/L Normal 3.5-5.1 [facility] Comment on above: Performed By: #### A LPHPHN #### [facility] [address] [place] [address] Dr. Li Nagel Protein [Mass/Vol] 6.9 g/dL Normal 6.4-8.2 [facility] Comment on above: Performed By: #### A LPHPHN #### [facility] [address] [place] [address] Dr. Li Nagel Sodium [Moles/Vol] 136 mmol/L Normal 136-145 [facility] Comment on above: Performed By: #### A LPHPHN #### [facility] [address] [place] [address] Dr. Li Naegl Urea nitrogen [Mass/Vol] 10.0 mg/dL Normal 7.0-18.0 [facility] Comment on above: Performed By: #### A LPHPHN #### [facility] [address] [place] [address] Dr. Li Naegl Urea nitrogen/Creatinine [Mass ratio] 12.8 mg/mg Normal [facility] Comment on above: Performed By: #### A LPHPHN #### [facility] [address] [place] [address] Dr. Li Nagel XR LSPINE MIN 4 [...] by: LAURIE CRUZ Date: 2021-09-06 15:05 Normal [facility] HEPATOBILIARY SCAN W EFon 08-27-2021 NM HEPATOBILIARY [...] by: JACKSON ADKINS Date: 2021-08-27 16:05 Normal [facility] Comprehensive Metabolic Pane yair 08-20-2021 Albumin [Mass/Vol] 5.0 g/dL Normal 3.6-5.1 [facility] Comment on above: Performed By: #### C MP #### [facility] [address] [place], [place] [id number] Albumin/Globulin [Mass ratio] 2.1 {ratio} Normal 1.0-2.5 [facility] Comment on above: Performed By: #### C MP #### [facility] [address] [place], [place] [id number] ALP [Catalytic activity/Vol] 110 U/L Normal 35-119 [facility] Comment on above: Performed By: #### C MP #### [facility] [address], [place] [id number] ALT [Catalytic activity/Vol] 71 U/L High 6-33 [facility] Comment on above: Result Comment: 12/1 /2021 Female reference range changed. Performed By: #### C MP #### [facility] [address], [place] [id number] Anion gap [Moles/Vol] 17 mmol/L Normal 12-20 [facility] Comment on above: Result Comment: Effe ctive 04/29/2019 reference range changed. Performed By: #### C MP #### [facility] [address], [place] [id number] AST [Catalytic activity/Vol] 69 U/L High 9-34 [facility] Comment on above: Performed By: #### C MP #### [facility] [address], [place] [id number] BUN/CREA 11 Ratio Normal 6-22 [facility] Comment on above: Performed By: #### C MP #### [facility] [address], [place] [id number] Calcium [Mass/Vol] 9.8 mg/dL Normal 8.6-10.2 [facility] Comment on above: Performed By: #### C MP #### [facility] [address], [place] [id number] Chloride [Moles/Vol] 99 mmol/L Normal 98-107 [facility] Comment on above: Performed By: #### C MP #### [facility] [address], [place] [id number] CO2 [Moles/Vol] 25 mmol/L Normal 20-31 [facility] Comment on above: Performed By: #### C MP #### [facility] [address], [place] [id number] Creatinine [Mass/Vol] 0.9 mg/dL Normal 0.6-1.4 [facility] Comment on above: Performed By: #### C MP #### [facility] [address], [place] [id number] eGFRAA 94 mL/min/1.73m2 Normal >60 [facility] Comment on above: Performed By: #### C MP #### [facility] [address], [place] [id number] eGFRNAA 78 mL/min/1.73m2 Normal >60 [facility] Of Publications Comment on above: Performed By: #### C MP #### [facility] [address], [place] [id number] Globulin (S) [Mass/Vol] 2.4 g/dL Normal 1.9-3.7 [facility] Comment on above: Performed By: #### C MP #### [facility] [address], [place] [id number] Glucose [Mass/Vol] 100 mg/dL High 65-99 [facility] Director Of Publications Comment on above: Result Comment: For FASTING Glucose --- ADA reference ranges: Normal 65-99 mg/dl Prediabetes 100-125 Diabetes >/= 126 Performed By: #### C MP #### [facility] [address], [place] [id number] Potassium [Moles/Vol] 3.8 mmol/L Normal 3.5-5.5 [facility] Of Publications Comment on above: Performed By: #### C MP #### [facility] [address], [place] [id number] Protein [Mass/Vol] 7.4 g/dL Normal 6.1-8.1 [facility] Director Of Publications Comment on above: Performed By: #### C MP #### [facility] [address], [place] [id number] Sodium [Moles/Vol] 137 mmol/L Normal 135-146 [facility] Director Of Publications Comment on above: Performed By: #### C MP #### [facility] [address], [place] [id number] TBIL <0.3 Normal [facility] Specialist Comment on above: Performed By: #### C MP #### [facility] [address], [place] [id number] Urea nitrogen [Mass/Vol] 10 mg/dL Normal 7-25 [facility] Director Of Publications Comment on above: Performed By: #### C MP #### [facility] [address], [place] [id number] US SINGLE QUAD RT UPPERon US SINGLE [...] JACKSON ADKINS Date: 2021-08-16 08:19 Normal [facility] Complete Blood Count with Au to Diffon 08-06-2021 Basophils (Bld) [#/Vol] 0.03 10*3/uL Normal 0.00-0.20 [facility] Special[facility] Comment on above: Performed By: #### C MP, CBCAD, LIPD #### [facility] [address], [place] [id number] Basophils/100 WBC (Bld) 0.4 % Normal [facility] Comment on above: Performed By: #### C MP, CBCAD, LIPD #### [facility] [address], [place] [id number] Eosinophils (Bld) [#/Vol] 0.11 10*3/uL Normal 0.02-0.50 [facility] Comment on above: Performed By: #### C MP, CBCAD, LIPD #### [facility] [address], [place] [id number] Eosinophils/100 WBC (Bld) 1.4 % Normal [facility] Comment on above: Performed By: #### C MP, CBCAD, LIPD #### [facility] [address], [place] [id number] Erythrocyte distribution width (RBC) [Ratio] 12.6 % Normal 11.0-15.0 [facility] Director Of Publications Comment on above: Performed By: #### C MP, CBCAD, LIPD #### [facility] [address], [place] [id number] Hematocrit (Bld) [Volume fraction] 44.2 % Normal 35.0-47.0 [facility] Director Of Publications Comment on above: Performed By: #### C MP, CBCAD, LIPD #### [facility] [address] [place], [place] [id number] Hemoglobin (Bld) [Mass/Vol] 14.8 g/dL Normal 11.6-15.5 [facility] Director Of Publications Comment on above: Performed By: #### C NORBERTO, CBCAD, LIPD #### [facility] [address], [place] [id number] Lymphocytes (Bld) [#/Vol] 2.2 10*3/uL Normal 0.9-3.9 [facility] Director Of Publications Comment on above: Performed By: #### C MP, CBCAD, LIPD #### [facility] [address], [place] [id number] Lymphocytes/100 WBC (Bld) 28.1 % Normal [facility] Director Of Publications Comment on above: Performed By: #### C NORBERTO, CBCAD, LIPD #### [facility] [address], [place] [id number] MCH (RBC) [Entitic mass] 31.2 pg Normal 27.0-33.0 [facility] Director Of Publications Comment on above: Performed By: #### C MP, CBCAD, LIPD #### [facility] [address], [place] [id number] MCHC (RBC) [Mass/Vol] 33.5 g/dL Normal 32.0-36.0 [facility] Director Of Publications Comment on above: Performed By: #### C MP, CBCAD, LIPD #### [facility] [address], [place] [id number] MCV (RBC) [Entitic vol] 93 fL Normal 80-100 [facility] Director Of Publications Comment on above: Performed By: #### C MP, CBCAD, LIPD #### [facility] [address], [place] [id number] Monocytes (Bld) [#/Vol] 0.4 10*3/uL Normal 0.2-0.9 [facility] Comment on above: Performed By: #### C MP, CBCAD, LIPD #### [facility] [address], [place] [id number] Monocytes/100 WBC (Bld) 4.8 % Normal [facility] Comment on above: Performed By: #### C MP, CBCAD, LIPD #### [facility] [address], [place] [id number] Neutrophils (Bld) [#/Vol] 5.1 10*3/uL Normal 1.5-7.8 [facility] Comment on above: Performed By: #### C MP, CBCAD, LIPD #### [facility] [address], [place] [id number] Neutrophils/100 WBC (Bld) 64.3 % Normal [facility] Comment on above: Performed By: #### C MP, CBCAD, LIPD #### [facility] [address], [place] [id number] Platelet mean volume (Bld) [Entitic vol] 11.00 fL Normal 7.50-12.50 [facility] Comment on above: Performed By: #### C MP, CBCAD, LIPD #### [facility] [address], [place] [id number] Platelets (Bld) [#/Vol] 296 10*3/uL Normal 140-400 [facility] Special[facility] Comment on above: Performed By: #### C MP, CBCAD, LIPD #### [facility] [address], [place] [id number] RBC (Bld) [#/Vol] 4.74 10*6/uL Normal 3.90-5.20 [facility] Comment on above: Performed By: #### C MP, CBCAD, LIPD #### [facility] [address], [place] [id number] RDW-SD 43.4 fL Normal 37.0-50.0 [facility] Comment on above: Performed By: #### C MP, CBCAD, LIPD #### [facility] [address], [place] [id number] WBC (Bld) [#/Vol] 8.0 10*3/uL Normal 3.8-11.0 [facility] Director Of Publications Comment on above: Performed By: #### C MP, CBCAD, LIPD #### [facility] [address], [place] [id number] Comprehensive Metabolic Pane yair 08-06-2021 Albumin [Mass/Vol] 5.2 g/dL High 3.6-5.1 [facility] Director Of Publications Comment on above: Performed By: #### C MP, CBCAD, LIPD #### [facility] [address], [place] [id number] Albumin/Globulin [Mass ratio] 2.1 {ratio} Normal 1.0-2.5 [facility] Director Of Publications Comment on above: Performed By: #### C MP, CBCAD, LIPD #### [facility] [address], [place] [id number] ALP [Catalytic activity/Vol] 115 U/L Normal 35-119 [facility] Director Of Publications Comment on above: Performed By: #### C MP, CBCAD, LIPD #### [facility] [address], [place] [id number] ALT [Catalytic activity/Vol] 101 U/L High 6-33 [facility] Director Of Publications Comment on above: Result Comment: 03/24 Female reference range changed. Performed By: #### C MP, CBCAD, LIPD #### [facility] [address], [place] [id number] Anion gap [Moles/Vol] 20 mmol/L Normal 12-20 [facility] Director Of Publications Comment on above: Result Comment: Effe ctive 04/29/2019 reference range changed. Performed By: #### C MP, CBCAD, LIPD #### [facility] [address], [place] [id number] AST [Catalytic activity/Vol] 96 U/L High 9-34 [facility] Director Of Publications Comment on above: Performed By: #### C MP, CBCAD, LIPD #### [facility] [address], [place] [id number] BUN/CREA 9 Ratio Normal 6-22 [facility] Comment on above: Performed By: #### C MP, CBCAD, LIPD #### [facility] [address], [place] [id number] Calcium [Mass/Vol] 9.9 mg/dL Normal 8.6-10.2 [facility] Comment on above: Performed By: #### C MP, CBCAD, LIPD #### [facility] [address], [place] [id number] Chloride [Moles/Vol] 106 mmol/L Normal 98-107 [facility] Comment on above: Performed By: #### C MP, CBCAD, LIPD #### [facility] [address], [place] [id number] CO2 [Moles/Vol] 21 mmol/L Normal 20-31 [facility] Comment on above: Performed By: #### C MP, CBCAD, LIPD #### [facility] [address], [place] [id number] Creatinine [Mass/Vol] 0.9 mg/dL Normal 0.6-1.4 [facility] Comment on above: Performed By: #### C MP, CBCAD, LIPD #### [facility] [address], [place] [id number] eGFRAA 90 mL/min/1.73m2 Normal >60 [facility] Special[facility] Comment on above: Performed By: #### C MP, CBCAD, LIPD #### [facility] [address], [place] [id number] eGFRNAA 74 mL/min/1.73m2 Normal >60 [facility] Special[facility] Comment on above: Performed By: #### C MP, CBCAD, LIPD #### [facility] [address], [place] [id number] Globulin (S) [Mass/Vol] 2.5 g/dL Normal 1.9-3.7 [facility] Comment on above: Performed By: #### C MP, CBCAD, LIPD #### [facility] [address], [place] [id number] Glucose [Mass/Vol] 127 mg/dL High 65-99 [facility] Director Of Publications Comment on above: Result Comment: For FASTING Glucose --- ADA reference ranges: Normal 65-99 mg/dl Prediabetes 100-125 Diabetes >/= 126 Performed By: #### C NORBERTO, CBCAD, LIPD #### [facility] [address], [place] [id number] Potassium [Moles/Vol] 4.2 mmol/L Normal 3.5-5.5 [facility] Director Of Publications Comment on above: Performed By: #### C MP, CBCAD, LIPD #### [facility] [address], [place] [id number] Protein [Mass/Vol] 7.7 g/dL Normal 6.1-8.1 [facility] Director Of Publications Comment on above: Performed By: #### C NORBERTO, CBCAD, LIPD #### [facility] [address], [place] [id number] Sodium [Moles/Vol] 143 mmol/L Normal 135-146 [facility] Director Of Publications Comment on above: Performed By: #### C MP, CBCAD, LIPD #### [facility] [address], [place] [id number] TBIL <0.3 Normal [facility] Comment on above: Performed By: #### C NORBERTO, CBCAD, LIPD #### [facility] [address], [place] [id number] Urea nitrogen [Mass/Vol] 8 mg/dL Normal 7-25 [facility] Director Of Publications Comment on above: Performed By: #### C MP, CBCAD, LIPD #### [facility] [address], [place] [id number] Hemoglobin A1Con 08-06-2021 EAG 99.67 Normal [facility] Director Of Publications Comment on above: Performed By: #### A 1C #### [facility] [address], [place] [id number] HbA1c (Bld) [Mass fraction] 5.1 % Normal 4.0-6.0 [facility] Director Of Publications Comment on above: Performed By: #### A 1C #### [facility] [address], [place] [id number] Lipid Panelon 08-06-2021 Cholesterol [Mass/Vol] 190 mg/dL Normal 125-200 [facility] Special[facility] Comment on above: Result Comment: Low risk < 200mg/dL Borderline risk 201-239 mg/dl High risk > or equal to 240 Performed By: #### C MP, CBCAD, LIPD #### [facility] [address], [place] [id number] Cholesterol in HDL [Mass/Vol] 64 mg/dL Normal >40 [facility] Director Of Publications Comment on above: Result Comment: High Cardiovascular Risk HDL <40 mg/dL Low Cardiovascular Risk HDL > or equal to 60 mg/dl Performed By: #### C MP, CBCAD, LIPD #### [facility] [address], [place] [id number] Cholesterol in LDL [Mass/Vol] 107 mg/dL Normal [facility] Specialist Comment on above: Result Comment: LDL ATP III CLASSIFICATION LDL less than 100 mg/dl Optimal LDL 100-129 mg/dl Near or above optimal LDL 130-159 Borderline high LDL 160-189 High LDL greater than 189 mg/dl Very High Performed By: #### C MP, CBCAD, LIPD #### [facility] [address], [place] [id number] Cholesterol in VLDL [Mass/Vol] 19 mg/dL Normal [facility] Director Of Publications Comment on above: Performed By: #### C MP, CBCAD, LIPD #### [facility] [address], [place] [id number] Cholesterol.total/Ch olesterol in HDL [Mass ratio] 3 {ratio} Normal [facility] Specialist Comment on above: Performed By: #### C MP, CBCAD, LIPD #### [facility] [address], [place] [id number] Triglyceride [Mass/Vol] 95 mg/dL Normal 30-150 [facility] Director Of Publications Comment on above: Result Comment: TRIG ATPIII CLASSIFICATIONS TRIG less than 150 mg/dl Normal TRIG 150-199 mg/dl Borderline High TRIG 200-500 mg/dl High TRIG greather than 500 mg/dl Very High Performed By: #### C MP, CBCAD, LIPD #### [facility] [address], [place] [id number] Q - CULTURE,URINE,ROUTINEon 06-04-2021 CULTURE, URINE, ROUTINE SEE NOTE Normal [facility] Director Of Publications Comment on above: Order Comment: [facility] performed at: [employer] [employer] [facility], [address], [address] [facility], [place], [address], Shift Boss: Tim Dotson MD [facility] Collection Date/Time: [id number] [facility] Results Received Date/Time: [facility] Reported Date/Time: [id number] Result Comment: CULT URE, URINE, ROUTINE Micro Number: [id number] Test Status: Final Specimen Source: Not given Specimen Quality: Adequate Result: Mixed genital marie isolated. These superficial bacteria are not indicative of a urinary tract infection. No further organism identification is warranted on this specimen. If clinically indicated, recollect clean-catch, mid-stream urine and transfer immediately to Urine Culture Transport Tube. Performed By: #### [id number] #### [facility] [address] [place] [address] MRI LUMBAR SPINE WO CONTRAST on 11-06-2018 [...] Naren Lagos MD 11/06/18 Final result Normal [facility] Vital Signs Date Time Vital Sign Value Performing Clinician Facility 11-02-2022 13:10-0400 Body height 157.5 cm Samuel Freeman MD Work Phone: [facility] 11-02-2022 13:10-0400 Body weight 71 kg Samuel Freeman MD Work Phone: [facility] 11-02-2022 13:10-0400 Diastolic blood pressure 97 mm[Hg] Samuel Freeman MD Work Phone: [facility] 11-02-2022 13:10-0400 Heart rate 100 /min Samuel Freeman MD Work Phone: [facility] 11-02-2022 13:10-0400 Systolic blood pressure 141 mm[Hg] Samuel Freeman MD Work Phone: [facility] 05-27-2022 11:29-0500 Body weight 85.73 kg Carol Winn MD Work Phone: [facility] 05-27-2022 11:29-0500 Diastolic blood pressure 92 mm[Hg] Carol Winn MD Work Phone: [facility] 05-27-2022 11:29-0500 Heart rate 102 /min Carol Winn MD Work Phone: [facility] 05-27-2022 11:29-0500 Systolic blood pressure 145 mm[Hg] Carol Winn MD Work Phone: [facility] 05-03-2022 15:30-0500 Body height 158.75 cm Imad Asaad Other [facility] Other 05-03-2022 15:30-0500 Body mass index (BMI) [Ratio] 34.55 kg/m2 Imad Asaad Other [facility] Other 05-03-2022 15:30-0500 Body weight 87.09 kg Imad Asaad Other [facility] Other 05-03-2022 15:30-0500 Diastolic blood pressure 91 mm[Hg] Imad Asaad Other [facility] Other 05-03-2022 15:30-0500 Systolic blood pressure 130 mm[Hg] Imad Asaad Other [facility] Other 05-03-2022 14:47-0500 Body weight 0 kg MD Giovani Hagen Work Phone: [facility] Encounters Encounter Date Encounter Type Care Provider Facility Start: 12-28-2023 ambulatory BHAVESH DEJESUS Facility:[facility] Start: 12-04-2023 End: 12-04-2023 ambulatory RUGEN M HIEU Not Available Start: 11-02-2023 Orders Only Solo Mora MD [...] End: 03-24-2023 Evaluation and management of inpatient MARY Palomo [facility] Start: 03-20-2023 ambulatory Carol Winn MD Work Phone: Gastroenterology Comment on above: Thoughts and input Start: 03-20-2023 Telephone encounter Lawrence Campuzano MD Work Phone: [facility] Start: 11-03-2022 Telephone encounter Maria Dolores Corey DO Work Phone: Gastroenterology Comment on above: Medication Preauthorization ([place] for Ibsr pilar) Start: 11-02-2022 End: 11-02-2022 Orders Only Maria Dolores Corey DO Work Phone: Gastroenterology Comment on above: Irritable bowel syndrome with constipati on (Primary Dx) Gastroparesis Gastroparesis (Prima ry Dx) Start: 10-26-2022 End: 10-26-2022 ambulatory Imad Asaad Facility:[facility] Start: 10-26-2022 End: 10-26-2022 ambulatory MD Giovani Hagen Work Phone: [facility] Work Phone: Start: 10-26-2022 End: 10-26-2022 Patient encounter procedure MD Giovani Hagen Work Phone: [facility] [place] Work Phone: Start: 10-18-2022 ambulatory Maria Dolores Corey DO Work Phone: Gastroenterology Start: 10-18-2022 Telephone encounter Maria Dolores Corey DO Work Phone: Gastroenterology Comment on above: Medication Preauthorization ([employer]) Results Start: 10-17-2022 End: 10-18-2022 ambulatory MARIA DOLORES Rodney COREY Facility:[facility] Start: 10-17-2022 End: 10-17-2022 Patient encounter procedure [facility] Work Phone: Gastroenterology Comment on above: Gastroparesis (Primary Dx) Start: 09-12-2022 ambulatory NOMA DAKHIL Facility[facility] Start: 09-12-2022 End: 09-12-2022 Subsequent hospital visit by physician [facility] Work Phone: [facility] Comment on above: Nausea [R11.0] Start: 08-24-2022 Telephone encounter Nurse Jud [facility] Work Phone: Gastroenterology Comment on above: Appointment Start: 07-08-2022 End: 07-08-[address] MADHURI MISHRA . Facility:[facility] Start: 07-06-2022 End: 07-07-[address] MADHURI MISHRA . Facility:[facility] Start: 07-05-2022 End: 07-05-2022 Patient encounter procedure Madhuri MISHRA [facility] Start: 07-04-2022 Orders Only Carol Winn MD Work Phone: Gastroenterology Start: 06-29-2022 End: 06-30-[address] MADHURI MISHRA . Facility:[facility] Start: 06-29-2022 End: 06-29-2022 Lab Drop off Madhuri MISHRA [facility] Start: 06-23-2022 ambulatory Carol Winn MD Work Phone: Gastroenterology Comment on above: EGD instructions Start: 06-23-2022 E-mail encounter from caregiver Carol Winn MD Work Phone: [facility] Start: 06-16-2022 ambulatory [facility] Gastroenterology Comment on above: Question regarding US ABD RT UPPER QUADR ANT Start: 06-15-2022 ambulatory CAROL WINN Facility:[facility] Start: 06-15-2022 End: 06-15-2022 Subsequent hospital visit by physician [facility] Work Phone: [facility] Comment on above: Liver lesion [K76.9] Start: 06-14-2022 Orders Only Carol Winn MD Work Phone: Ambulatory Surgery Comment on above: Liver lesion (Primary Dx) Results Start: 06-10-2022 ambulatory Diamond Pycraft RT(R) Radiology Ct Scan Comment on above: Radiology CT Start: 06-10-2022 Patient encounter procedure Diamond Pycraft RT(R) [facility] Start: 06-10-2022 End: 02-17-2023 Subsequent hospital visit by physician Ct Prep [facility] Radiology Ct Scan Comment on above: Bilious vomiting with nausea [R11.14] Start: 05-27-2022 ambulatory CAROL WINN Facility:[facility] Start: 05-27-2022 End: 05-27-2022 Subsequent hospital visit by physician Arron [facility] Work Phone: [facility] General Comment on above: SOB (shortness of breath) [R06.02] Start: 05-27-2022 End: 05-27-2022 Patient encounter procedure Carol Winn MD Work Phone: Gastroenterology Comment on above: Fatty liver (Primary Dx); Bilious vomiting with nausea; Right sided abdominal pain; Nausea; History of diverticulitis; SOB (shortness of breath) Start: 05-13-2022 End: 05-13-2022 ambulatory Imad Asaad Facility:[facility] Start: 05-13-2022 End: 05-13-2022 ambulatory MD Giovani Hagen Work Phone: [facility] Work Phone: Start: 05-13-2022 End: 05-13-2022 Patient encounter procedure MD Giovani Hagen Work Phone: [facility] Work Phone: Start: 05-03-2022 End: 05-04-2022 ambulatory IMAD ASAAD [facility] Other Start: 05-03-2022 Office consultation new/estab patient 60 min Imad Asaad [facility] Start: 04-20-2022 End: 04-20-[address] AURORA IRBY . Facility:[facility] Start: 04-06-2022 End: 04-07-[address] GIOVANI HAGEN Facility:[facility] Start: 12-21-2021 End: 12-22-[address] AURORA IRBY . Facility:[facility] Start: 12-10-2021 End: 12-10-2021 Subsequent hospital visit by physician Us [facility] Comment on above: Elevated LFTs [...] Start: 11-06-2018 End: 11-09-2018 Patient encounter procedure [facility] Procedures Date Procedure Procedure Detail Performing Clinician [...] Start: 12-24-2023 Influenza [facility] Start: 12-19-2023 End: 12-19-2023 ambulatory 12/19/2023 2:15 PM EDT Results Only Cardiology [address] [place] [address] Exertional Syncope. Referring: Dr. Shilo Dillon Cardiology Comment on above: Exertional Syncope. Referring: Dr. Shilo Dillon Start: 12-19-2023 End: 12-19-2023 Patient encounter procedure Cardiology Comment on above: Exertional Syncope. Referring: Dr. Shilo Dillon Start: 04-24-2023 Behavioral Health Screening Behavioral Health Screening [facility] Start: 12-23-2022 Covid-19 Vaccine ( season) Covid-19 Vaccine ( season) [facility] Start: 12-23-2022 Influenza vaccination [facility] Start: 05-13-2022 [facility] Start: 04-24-2022 DEPRESSION ASSESSMENT DEPRESSION ASSESSMENT [facility] Start: 12-28-2021 COVID-19 VACCINE (4 - Booster for Pfizer series) COVID-19 VACCINE (4 - Booster for Pfizer series) [facility] Start: 12-28-2021 COVID-19 VACCINE (4 - Pfizer series) COVID-19 VACCINE (4 - Pfizer series) [facility] Start: 12-23-2021 Influenza vaccination INFLUENZA (#1) [facility] Start: 02-06-2020 Urine microalbumin profile DTaP,Tdap,Td Vaccine (6 - Td or Tdap) [facility] Start: 2018 HPV TESTING HPV TESTING [facility] Start: 2009 PAP TESTING PAP TESTING [facility] Start: 2009 Screening for malignant neoplasm of cervix Cervical Cancer Screening [facility] Start: 09-29-2007 Urine microalbumin profile DTAP,TDAP,TD (1 - Tdap) [facility] Start: 11-30-2006 HPV Vaccine (2 - 3-dose series) HPV Vaccine (2 - 3-dose series) [facility] Start: 2006 HEPATITIS C SCREENING HEPATITIS C SCREENING [facility] Start: 2006 Hepatitis C screening Hepatitis C Screening [facility] Start: 2006 HIV SCREENING HIV SCREENING [facility] Start: 2006 HIV screening HIV Screening [facility] Start: 1988 HEPATITIS B (1 of 3 - 3-dose series) HEPATITIS B (1 of 3 - 3-dose series) [facility] Actin smooth muscle IgG Ab [Units/volume] in Serum [facility] Alpha 1 antitrypsin [Mass/volume] in Serum or Plasma [facility] Alpha 1 antitrypsin phenotyping [Identifier] in Serum or Plasma by Immunofixation [facility] Ceruloplasmin [Mass/ volume] in Serum or Plasma [facility] End: 06-26-2023 Ct abdomen & pelvis w/o contrast material CT ABD/PEL WO IVCON Radiology Routine Bilious vomiting with nausea Right sided abdominal pain Nausea 1 Occurrences starting 05/27/2022 until 06/26/2023 [facility] Work Phone: Comment on above: 1 Occurrences starting 05/27/2022 until 06/26/2023 End: 11-01-2024 ECG COMPLETE ECG COMPLETE ECG Routine Gastroparesis 1 Occurrences starting 11/02/2023 until 11/01/2024 [facility] Work Phone: Comment on above: 1 Occurrences starting 11/02/2023 until 11/01/2024 End: 05-27-2023 EGD DIAGNOSTIC EGD DIAGNOSTIC Endoscopy Routine Bilious vomiting with nausea Right sided abdominal pain 1 Occurrences starting 05/27/2022 until 05/27/2023 [facility] Work Phone: Comment on above: 1 Occurrences starting 05/27/2022 until 05/27/2023 Electrogastrography dx transcutaneous EGG (ELECTROGASTROGRAPHY) Procedures Routine Gastroparesis Ordered: 09/14/2022 [facility] Work Phone: Comment on above: Ordered: 09/14/2022 Hepatitis A virus Ab [Presence] in Serum by Immunoassay [facility] HFE gene mutations f ound [Identifier] in Blood or Tissue by Molecular genetics method Nominal [facility] Homogenous nuclear A b pattern [Titer] in Serum [facility] IgG [Mass/volume] in Serum or Plasma [facility] Lipoprotein a [Moles /volume] in Serum or Plasma [facility] Mitochondria M2 IgG Ab [Units/volume] in Serum [facility] Nuclear Ab [Titer] in Serum [facility] End: 07-14-2023 Us abdominal real time w/image limited US ABD RT UPPER QUADRANT Radiology Routine Liver lesion 1 Occurrences starting 06/14/2022 until 07/14/2023 [facility] Work Phone: Comment on above: 1 Occurrences starting 06/14/2022 until 07/14/2023 [facility] Immunizations Immunization Date Immunization Notes Care Provider Bernadette vickers 11-02-2021 SARS-CoV-2 mRNA (ljadlsjehvq-gnub-lvyl ose) vaccine Madhuri MISHRA [facility] 04-29-2021 SARS-CoV-2 (COVID-19 ) mRNA BNT-162b2 vax Madhuri MISHRA [facility] 03-03-2021 SARS-CoV-2 (COVID-19 ) mRNA BNT-162b2 vax Madhuri MISHRA [facility] Comment on above: Result Comment: 2022: TPVAL 02-09-2021 influenza virus vaccine, unspecified formulation Madhuri MISHRA [facility] 03-16-2020 influenza virus vaccine, unspecified formulation Madhuri MISHRA [facility] 01-08-2018 influenza virus vaccine, unspecified formulation Madhuri MISHRA [facility] 02-01-2017 influenza virus vaccine, unspecified formulation Madhuri MISHRA [facility] 03-25-2016 influenza virus vaccine, unspecified formulation Madhuri MISHRA [facility] 02-05-2010 tetanus toxoid, reduced diphtheria toxoid, and acellular pertussis vaccine, adsorbed Madhuri MISHRA [facility] 01-05-2007 hepatitis B vaccine, pediatric or pediatric/adolescent dosage Madhuri [employer] To Get Approved For [facility] 11-02-2006 hepatitis B vaccine, pediatric or pediatric/adolescent dosage Madhuri [employer] To Get Approved For [facility] 11-02-2006 HPV, unspecified formulation [employer] Credit Card To Get Approved For [facility] 11-02-2006 meningococcal ACWY vaccine, unspecified formulation [employer]huri [employer] Credit Card To Get Approved For [facility] 02-20-1998 hepatitis B vaccine, pediatric or pediatric/adolescent dosage Madhuri E[employer] Credit Card To Get Approved For [facility] 12-07-1992 measles, mumps and rubella virus vaccine Madhuri MISHRA [facility] 06-09-1992 measles, mumps and rubella virus vaccine Madhuri MISHRA [facility] 10-31-1990 varicella virus vaccine Madhuri MISHRA [facility] NEGATED: Highlighted row has not occurred!05-01-2019 influenza virus vaccine, live, attenuated, for intranasal use Madhuri MISHRA [facility] NEGATED: Highlighted row has not occurred!04-03-2019 influenza virus vaccine, live, attenuated, for intranasal use Madhuri MISHRA [facility] Payers Date Payer Category Payer Self-pay [id number] 2020 Unknown [id number] 1988 Unknown [id number] 2.16.840.1.650237.3.579.2.182 1988 Unknown [id number] 2.16.840.1.506672.3.579.2.593 1988 Unknown [id number] 2.16.840.1.856462.3.579.2.593 1988 Unknown [id number] 2.16.840.1.331850.3.579.2.593 1988 Unknown [id number] 2.16.840.1.184459.3.579.2.593 1988 Unknown [id number] 2.16.840.1.618717.3.579.2.593 1988 Unknown [id number] 2.16.840.1.382619.3.579.2.593 1988 Unknown [id number] 2.16.840.1.044916.3.579.2.593 1988 Unknown [id number] 2.16.840.1.121525.3.579.2.593 1988 Unknown [id number] 2.16.840.1.657980.3.579.2.593 1988 Unknown [id number] 2.16.840.1.909041.3.579.2.593 1988 Unknown [id number] 2.16.840.1.532831.3.579.2.593 1988 Unknown [id number] 2.16.840.1.048804.3.579.2.593 1988 Unknown [id number] 2.16.840.1.314848.3.579.2.593 1988 Unknown [id number] 2.16.840.1.451594.3.579.2.177 1988 Unknown [id number] 2.16840.1.159203.3.579.2.727 1988 Unknown [id number] 2.16840.1.130098.3.579.2.1259 1988 Unknown [id number] 2.16.840.1.753829.3.579.2.1259 1988 Unknown [id number] 2.16.840.1.364055.3.579.2.1259 1988 Unknown [id number] 2.16840.1.494251.3.579.2.1259 1988 Unknown [id number] 2.16840.1.283560.3.579.2.1259 1988 Unknown [id number] 2.16840.1.626571.3.579.2.1259 1959 Unknown [id number] Unknown 100 [facility] [id number] Unknown [id number] 2.16840.1.539310.3.579.2.531 Unknown [id number] 2.16840.1.695387.3.579.2.531 Social History Date Type Detail Facility Tobacco smoking stat us NHIS Unknown if ever smoked [facility] Work Phone: Start: 1990 Sex Assigned At Female F [facility] Start: 03-28-2019 End: 05-27-2022 Tobacco smoking status NHIS Never smoked tobacco [facility] Start: 03-28-2019 End: 05-27-2022 Tobacco use and exposure Smokeless tobacco non-user [facility] Start: 05-27-2022 End: 11-02-2022 Alcohol intake Current drinker of alcohol (finding) [facility] Start: 03-28-2019 Alcohol Comment socially [facility] Start: 1990 Sex Assigned At Not on file C [facility] Start: 10-17-2022 End: 11-02-[address] [facility] Start: 06-29-2022 Tobacco smoking status Ex-smoker (fi nding) [facility] Tobacco smoking status Never [facility] Start: 10-17-2022 End: 11-02-2022 History of Social function [facility] Start: 06-08-2021 Gender identity Identifies as female gender (finding) [facility] Start: 11-16-2021 End: 11-26-2021 Exposure to SARS-CoV-2 (event) Not sure [facility] Goals Date Patient Goal Desired Activity /State Functional Status Date Assessment Result Facility 06-30-2022 Functional Status N/A [facility] Clinical Notes 05-03-2022 to 11-02-2023 Telephone Encounter - Criss Mccrary - 11/02/2023 10:39 AM EDTTelephone Encounter - Criss Mccrary - 11/02/2023 10:39 AM Soraida Baxter, PhD - 11/02/2022 5:16 PM EDT Note Date & Type Note Facility 11-02-2023 Telephone encounter Note Images from the original note were not included. Records are in Care Everywhere: EP Referral- 11/01/23 (Dr. Shilo Dillon/Cardiology) Criss Mccrary [facility] 11-02-2023 Miscellaneous Notes Images from the original note were not included. Records are in Care Everywhere: EP Referral- 11/01/23 (Dr. Shilo Dillon/Cardiology) Criss Mccrary documented in this encounter [facility] 03-20-2023 Miscellaneous Notes Patient is a 32-year-old [...] prior to transfer. documented in this encounter [facility] 11-03-2022 Miscellaneous Notes PA for Ibsrela initiated electronically. Awaiting response [facility] ID# [id number] Rx BIN [id number] Rx PCN CLAIMCR Rx Grp STOH documented in this encounter [facility] 11-02-2022 History of Present illness Narrative Behavioral [facility] [place] Name: Belgica Harper MR#: [id number] Date: 11/02/2022 Time: 1 hour Referred by: [...] She was given the website for the [facility] Behavioral Medicine Program and shown the relaxation recordings with the recommendation to practice this and the rationale behind their use. Follow-up with Dr. Conteh was discussed as well as encouraging her to continue her PTSD work with a local trauma therapist. Soraida Zhang, Ph.D. documented in this encounter [facility] 11-02-2022 History of Present illness Narrative Assessment ASSESSMENT 32 year old female with medical refractory gastroparesis. PLAN I discussed surgical therapy for gastroparesis in detail. Belgica Harper is candidate for further medical treatment. Needs to stop Wegovy May consider for wireless motility capsule study Constipation medication change per Dr. 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 Maria Dolores Corey DO P Sp Ddsi Clinical Pool Please ask her to see VISITING PROFESSOR to r/o endometriosis there was a very slight abnormal wave (not strong) suggesting its possible Called and spoke with the patient and relayed providers message. documented in this encounter [facility] 10-18-2022 Miscellaneous Notes PA initiated via Honk. Await response. Covered: Retail, Mail Order Unknown: Specialty, Long-Term Care Group ID: [id number] Group name: BIN: [id number] PCN: CLAIMCR documented in this encounter [facility] 10-18-2022 History of Present illness Narrative Images from the original note were not included. documented in this encounter [facility] 10-17-2022 Nurse Note EGG completed. Able to drink the 500 ml of water without any difficulty. documented in this encounter [facility] 09-12-2022 Note HNO ID: [id number] Author: RT Amber(R) Service: Nuclear Medicine Author Type: Spray Operator Type: Progress Notes Filed: 09/12/2022 2:46 PM [...] 10:11AM PATIENT DISCHARGED TO: Ambulatory patient, left [place] department area. A Diagnostic radioactive procedure has taken place, with no further precautions necessary other than routine body substance precautions. More information regarding radiation safety can be found using this link: [email or web address] [email or web address]%20Nuclear%20Med icine%20Procedures.[email or web address] SIGNATURE: Shivani Vasquez RT(R) PATIENT NAME: Belgica Harper DATE: September 12, 2022 TIME: 2:45 PM PAGER/CONTACT #: [facility] 09-12-2022 History of Present illness Narrative RADIOLOGY [...] 10:11AM PATIENT DISCHARGED TO: Ambulatory patient, left [place] department area. A Diagnostic radioactive procedure has taken place, with no further precautions necessary other than routine body substance precautions. More information regarding radiation safety can be found using this link: [email or web address] [email or web address]-%[email or web address]%20Nucl ear%20Medicine%20Procedures.[email or web address] SIGNATURE: RT Amber(R) PATIENT NAME: Belgica Harper DATE: September 12, 2022 TIME: 2:45 PM PAGER/CONTACT #: documented in this encounter [facility] 08-24-2022 Miscellaneous Notes Lm to confirm procedure for 08-31-22 documented in this encounter [facility] 07-05-2022 Hospital Discharge instructions Patient Education 07/05/2022 [...] [facility] [address] , [place] [address]- Business (1) When:11/04/2022 08:39:10 Comments:With a stone metabolic work-up [facility] 06-23-2022 Miscellaneous Notes Confirmed procedure for 06-30-22 documented in this encounter [facility] 06-15-2022 Note HNO ID: [id number] Author: Monet Osei RDMS Service: Abstract Author Type: Salvager Helper Type: Progress Notes Filed: 06/15/2022 8:09 PM [...] Osei RDMS June 15, 2022 8:08 PM [facility] 06-15-2022 History of Present illness Narrative Radiology [...] 2022 8:08 PM documented in this encounter [facility] 06-14-2022 Miscellaneous Notes Images from the original [...] needed pending results documented in this encounter [facility] 06-10-2022 History of Present illness Narrative Radiology [...] 2022 10:01 AM documented in this encounter [facility] 05-27-2022 Note HNO ID: [id number] Author: RT Nakita(Aroldo) Service: Radiology Author Type: Technologist Type: Progress [...] RT Nakita(R) May 27, 2022 12:29 PM [facility] 05-27-2022 History of Present illness Narrative Radiology [...] 2022 12:29 PM documented in this encounter [facility] 05-27-2022 History of Present illness Narrative Chief [...] follow up with Dr. Hylton who is diabetes physician We discussed seeing endocrinology to help with [...] follow-ups on file. documented in this encounter [facility] 05-03-2022 Evaluation note Encounter Date Diagnosis Assessment Notes Apr, ENGLISH (nonalcoholic steatohepatiti s) (ICD-10 - K75.81) Apr, Abnormal ultrasound (ICD-10 - R93.89) Apr, Elevated liver enzymes (ICD-10 - R74.8) Apr, Liver cyst (ICD-10 - K76.89) [facility] Other Evaluation + Plan note Future Appointments Appointment Date:06/30/2022 10:00:00 AM Scheduled Provider: Location:[facility] Appointment Type:Urology CALL PAT FT Appointment Date:07/05/2022 08:15:00 AM Scheduled Provider: Location:[facility] Appointment Type:Urology FT Diagnostic Tests Pending * Urine Culture 06/29/22 [facility] + Plan note Future Appointments Appointment Date:11/07/2022 03:15:00 PM Scheduled Provider:Madhuri MISHRA MD Location:[facility] Appointment Type:URO Office Visit [facility] noteNo assessment information available [facility] Work Phone: Evaluation note* Diagnosis Fatty liver- Primary Other chronic nonalcoholic liver disease Bilious vomiting with nausea Right sided abdominal pain Abdominal pain, unspecified site Nausea Nausea alone History of diverticulitis SOB (shortness of breath) Shortness of breath [facility] Diagnosis Liver lesion- Primary Other specified disorders of liver documented [facility]* Diagnosis Gastroparesis- Primary [facility]* Diagnosis Gastroparesis- Primary [facility]* Diagnosis Irritable bowel syndrome with constipation- Primary Irritable bowel syndrome [facility]* Diagnosis [facility]astroparesis [facility] Diagnosis Gastroparesis- Primary [facility]* Diagnosis SOB (shortness of breath) Shortness of breath documented [facility] Diagnosis Liver lesion Other specified disorders of liver [facility]* Diagnosis Elevated LFTs Other abnormal blood chemistry documented in this encounter [facility] note* Diagnosis Bilious vomiting with nausea Right sided abdominal pain Abdominal pain, unspecified site Nausea Nausea alone documented in this encounter [facility] note* Diagnosis Nausea Nausea alone [facility]* Diagnosis Gastroparesis- Primary [facility] Narrative - Reported* Type Description Date Medical History Anxiety Medical History Depression Medical History Diverticulosis Medical History bipolar Surgical History C section Surgical History hysterectomy Hospitalization History see above Hospitalization History diverticulitis 01/24/18 Hospitalization History NONE ON THE LAST YEAR [facility] Other Hospital course Narrative No data available for this section [facility] Discharge instructions No data available for this section [facility] No data available for this section [facility] for referral (narrative)* Outpatient Procedure (Routine) - Authorized Specialty Diagnoses / Procedures Referred By Norma t Referred To Contact [facility] Diagnoses Bilious vomiting with nausea Right sided abdominal pain Procedures EGD DIAGNOSTIC ESOPHAGOGASTRODUODENOSC OPY [place]ANS[place] [address] [address] [facility] [place] [address] [place] [address] Referral ID Status Reason Start Date Expiration Date Visits Requested Visits Authorized [id number] Authorized Auto-Generat ed Referral 05/27/2022 05/27/2023 1 1 * MRI/CT (Routine) - Authorized Specialty Diagnoses / Procedures Referred By Norma kennedy Referred To Contact CT IMAGING Diagnoses Bilious vomiting with nausea Right sided abdominal pain Nausea Procedures CT ABD/PEL WO IVCON CT ABD & P[place] [address] [place] [address] Ct Imaging Referral ID Status Reason Start Date Expiration Date Visits Requested Visits Authorized [id number] Authorized Auto-Generat ed Referral 05/27/2022 06/26/2023 1 1 [facility] for referral (narrative)* Diagnostic Procedure Only (Routine) - Authorized Specialty Diagnoses / Procedures Referred By Norma kennedy Referred To Contact US IMAGING Diagnoses Liver lesion Procedures US ABD RT UPPER QUADRANT US ABDOMINAL REAL TIME W/[place] [address] [place] [address] [facility] Referral ID Status Reason Start Date Expiration Date Visits Requested Visits Authorized [id number] Authorized Auto-Generat ed Referral 06/14/2022 07/14/2023 1 1 [facility] for referral (narrative)* Diagnostic Procedure Only (Routine) - Closed Specialty Diagnoses / Procedures [facility] Referred To Contact [facility] Diagnoses Liver lesion Procedures US ABD RT UPPER QUADRANT US ABDOMINAL REAL [place] W/[place] [address] [place] [address] [place] [address] Referral ID Status Reason Start Date Expiration Date V isits Requested Visits Authorized [id number] Closed Auto-Generate d Referral 06/14/2022 07/14/2023 1 1 [facility] for referral (narrative)* Diagnostic Procedure Only (Routine) - Closed Specialty Diagnoses / Procedures [facility] Referred To Contact US IMAG[facility] Diagnoses Elevated LFTs Procedures US ABD RT UPPER QUADRANT US ABDOMINAL REAL TIME W/IMAGE LIMITED Carol Winn [place] [address] [address] Us Imaging [id number] Referral ID Status Reason Start Date Expiration Date V isits Requested Visits Authorized [id number] Closed Auto-Generate d Referral 11/24/2021 12/24/2022 1 1 [facility] for referral (narrative)* Diagnostic Procedure Only (Routine) - Closed Specialty Diagnoses / Procedures [facility] Referred To Contact MOLECULAR & FUNCTIONAL IMAGING Diagnoses Nausea Procedures NM GASTRIC EMPTYING SOLID [place]STRIC [place] [address] [place] [address] Molecular & Functional Imaging [address] [place] [address] Referral ID Status Reason Start Date Expiration Date V isits Requested Visits Authorized [id number] Closed Auto-Generate d Referral 08/31/2022 09/30/2023 1 1 [facility] for referral (narrative)* Outpatient Procedure (Routine) - Authorized Specialty Diagnoses / Procedures [facility] Referred To Contact [facility] Diagnoses Gastroparesis Procedures ECG COMPLETE ECG ROUTINE ECG W/LEAST 12 LDS W/I&R Solo Mora MD [address] [id number] [facility] [place] [id number] Referral ID Status Reason Start Date Expiration Date Visits Requested Visits Authorized [id number] Authorized Auto-Generat ed Referral 11/02/2023 11/01/2024 1 1 [facility] for visit NarrativePATIENT HERE AT THE REQUEST OF DR. HAGEN FOR ENGLISH & ABNORMAL US. ULTRASOUND AND LABS IN REFERRAL. PATIENT STATES SHE FEELS LETHARGIC & HAS OCCASIONAL ABDOMINAL PAINMarathon [facility] Other Reason for visit Narrative* Diagnostic Procedure Only (Routine) - Closed Specialty Diagnoses / Procedures [facility] Referred To Contact US IMAGING Diagnoses Liver lesion Procedures US ABD RT UPPER QUADRANT US ABDOMINAL REAL [place] W/[place] [address] [place] [address] Us Imaging [facility] Referral ID Status Reason Start Date Expiration Date V isits Requested Visits Authorized [id number] Closed Auto-Generate d Referral 06/14/2022 07/14/2023 1 1 [facility] for visit Narrative* Diagnostic Procedure Only (Routine) - Closed Specialty Diagnoses / Procedures [facility] Referred To Contact US IMAGING Diagnoses Elevated LFTs Procedures US ABD RT UPPER QUADRANT US ABDOMINAL REAL [place] W/[place] [address] [place] [address] Us Imaging [facility] Referral ID Status Reason Start Date Expiration Date V isits Requested Visits Authorized [id number] Closed Auto-Generate d Referral 11/24/2021 12/24/2022 1 1 [facility] for visit Narrative* Diagnostic Procedure Only (Routine) - Closed Specialty Diagnoses / Procedures Referred By Norma t Referred To Contact MOLECULAR & FUNCTIONAL IMAGING Diagnoses Nausea Procedures NM GASTRIC EMPTYING SOLID GASTRIC [place] [address] [place] [address] Molecular & Functional Imaging [address] [place], [place] [id number] Referral ID Status Reason Start Date Expiration Date V isits Requested Visits Authorized [id number] Closed Auto-Generate d Referral 08/31/2022 09/30/2023 1 1 [facility] Summary Purpose Family History No Family History [...] & PELVIS [place] [address] [place] [address] [place] [address] Referral ID Status Reason Start Date Expiration Date V isits Requested Visits Authorized [id number] Closed Auto-Generate d Referral 05/27/2022 06/26/2023 1 1 Additional Source Comments INFORMATION SOURCE (unrecogn ized section and content) DATE CREATED AUTHOR 11/09/2018 [facility] DATE CREATED AUTHOR AUTHOR'S ORGANIZ ATION 08/23/2021 [facility] dical Specialist DATE CREATED AUTHOR AUTHOR'S ORGANIZ ATION 07/17/2022 [facility] DATE CREATED AUTHOR AUTHOR'S ORGANIZ ATION 10/29/2022 [facility] DATE CREATED AUTHOR AUTHOR'S ORGANIZ ATION 10/31/2022 [facility] DATE CREATED AUTHOR AUTHOR'S ORGANIZ ATION 03/22/2023 [facility] DATE CREATED AUTHOR AUTHOR'S ORGANIZ ATION 03/28/2023 [facility] DATE CREATED AUTHOR AUTHOR'S ORGANIZ ATION 11/23/2023 [facility] DATE CREATED AUTHOR AUTHOR'S ORGANIZ ATION 12/03/2023 [facility] DATE CREATED AUTHOR AUTHOR'S ORGANIZ ATION 12/06/2023 [facility] dical Specialists [facility] Care Teams (unrecognized sec tion and content) Team Status: Active Member Role Status Dates Giovani Hagen MD Primary Care Provider Active Team Status: Inactive Member Role Status Dates Erwin Hylton MD Attending Provider Active Giovani Hagen MD Primary Care Provider Active Group Program Manager Relationship Specialty Start Date End Date Giovani Hageny [address] [facility] [address] [place] [address] PCP - General Family Medicine 03/27/19 Group Program Manager Relationship Specialty Start Date End Date Giovani Hagenalay [address] [facility] [address] [place] [address] PCP - General Family Medicine 03/27/19 Group Program Manager Relationship Specialty Start Date End Date Giovani Hagenalay [address] [facility] [address] [place] [address] PCP - General Family Medicine 03/27/19 Group Program Manager Relationship Specialty Start Date End Date Giovani Hagenalay [address] [facility] [address] [place] [address] PCP - General Family Medicine 03/27/19 Group Program Manager Relationship Specialty Start Date End Date Giovani Hagenalay [address] [place] [address] [place] [address] PCP - General Family Medicine 03/27/19 Group Program Manager Relationship Specialty Start Date End Date KevilGiovani lunaalay [address] [facility] [address] [place] [address] PCP - General Family Medicine 03/27/19 Group Program Manager Relationship Specialty Start Date End Date Giovani Hagen [address] [place] [address] [place] [address] PCP - General Family Medicine 03/27/19 Group Program Manager Relationship Specialty Start Date End Date Giovani Hagen [address] [place] [address] [place] [address] PCP - General Family Medicine 03/27/19 Group Program Manager Relationship Specialty Start Date End Date Giovani Hagen [address] [place] [address] [place] [address] PCP - General Family Medicine 03/27/19 Group Program Manager Relationship Specialty Start Date End Date Giovani Hageny [address] [place] [address] [place] [address] PCP - General Family Medicine 03/27/19 Group Program Manager Relationship Specialty Start Date End Date Giovani Hagen [address] [place] [address] PCP - General Family Medicine 03/27/19 Group Program Manager Relationship Specialty Start Date End Date Giovani Hagen [address] [place] [address] PCP - General Family Medicine 03/27/19 Group Program Manager Relationship Specialty Start Date End Date Giovani Hagen [address] [place] [address] PCP - General Family Medicine 03/27/19 Group Program Manager Relationship Specialty Start Date End Date Giovani Hagen [address] [place] [address] PCP - General Family Medicine 03/27/19 Group Program Manager Relationship Specialty Start Date End Date Giovani Hagen MD [address] [place] [address] PCP - General Family Medicine 03/27/19 Group Program Manager Relationship Specialty Start Date End Date Giovani Hagen MD [address] [place] [address] PCP - General Family Medicine 03/27/19 Group Program Manager Relationship Specialty Start Date End Date Giovani Hagen MD [address] [place] [address] PCP - General Family Medicine 03/27/19 Group Program Manager Relationship Specialty Start Date End Date Giovani Hagen MD [address] [place] [address] PCP - General Family Medicine 03/27/19 Group Program Manager Relationship Specialty Start Date End Date Giovani Hagen MD [address] [place] [address] PCP - General Family Medicine 03/27/19 Group Program Manager Relationship Specialty Start Date End Date Giovani Hagen MD [address] [place] [address] PCP - General Family Medicine 03/27/19 Group Program Manager Relationship Specialty Start Date End Date Giovani Hagen MD [address] [place] [address] PCP - General Family Medicine 03/27/19 Group Program Manager Relationship Specialty Start Date End Date Giovani Hagen MD [address] [place] [address] PCP - General Family Medicine 03/27/19 Group Program Manager Relationship Specialty Start Date End Date Giovani Hagen MD [address] [place] [address] PCP - General Family Medicine 03/27/19 Group Program Manager Relationship Specialty Start Date End Date Giovani Hagen MD [address] [place] [address] PCP - General Family Medicine 03/27/19 Source Comments (unrecognize d section and content) In the event this informatio n is protected by the Federal Confidentiality of Alcohol and Drug Abuse Patient Records regulations: The Federal rules restrict any use of the information to criminally investigate or prosecute any alcohol or drug abuse patient.[facility], IncIn the event this information is protected by the Federal Confidentiality of Alcohol and Drug Abuse Patient Records regulations: The Federal rules restrict any use of the information to criminally investigate or prosecute any alcohol or drug abuse patient.[facility], IncIn the event this information is protected by the Federal Confidentiality of Alcohol and Drug Abuse Patient Records regulations: The Federal rules restrict any use of the information to criminally investigate or prosecute any alcohol or drug abuse patient.[facility], IncIn the event this information is protected by the Federal Confidentiality of Alcohol and Drug Abuse Patient Records regulations: The Federal rules restrict any use of the information to criminally investigate or prosecute any alcohol or drug abuse patient.[facility], IncIn the event this information is protected by the Federal Confidentiality of Alcohol and Drug Abuse Patient Records regulations: The Federal rules restrict any use of the information to criminally investigate or prosecute any alcohol or drug abuse patient.[facility], IncIn the event this information is protected by the Federal Confidentiality of Alcohol and Drug Abuse Patient Records regulations: The Federal rules restrict any use of the information to criminally investigate or prosecute any alcohol or drug abuse patient.[facility], IncIn the event this information is protected by the Federal Confidentiality of Alcohol and Drug Abuse Patient Records regulations: The Federal rules restrict any use of the information to criminally investigate or prosecute any alcohol or drug abuse patient.[facility], IncIn the event this information is protected by the Federal Confidentiality of Alcohol and Drug Abuse Patient Records regulations: The Federal rules restrict any use of the information to criminally investigate or prosecute any alcohol or drug abuse patient.[facility], IncIn the event this information is protected by the Federal Confidentiality of Alcohol and Drug Abuse Patient Records regulations: The Federal rules restrict any use of the information to criminally investigate or prosecute any alcohol or drug abuse patient.[facility], IncIn the event this information is protected by the Federal Confidentiality of Alcohol and Drug Abuse Patient Records regulations: The Federal rules restrict any use of the information to criminally investigate or prosecute any alcohol or drug abuse patient.[facility], IncIn the event this information is protected by the Federal Confidentiality of Alcohol and Drug Abuse Patient Records regulations: The Federal rules restrict any use of the information to criminally investigate or prosecute any alcohol or drug abuse patient.[facility], IncIn the event this information is protected by the Federal Confidentiality of Alcohol and Drug Abuse Patient Records regulations: The Federal rules restrict any use of the information to criminally investigate or prosecute any alcohol or drug abuse patient.[facility], IncIn the event this information is protected by the Federal Confidentiality of Alcohol and Drug Abuse Patient Records regulations: The Federal rules restrict any use of the information to criminally investigate or prosecute any alcohol or drug abuse patient.[facility], IncIn the event this information is protected by the Federal Confidentiality of Alcohol and Drug Abuse Patient Records regulations: The Federal rules restrict any use of the information to criminally investigate or prosecute any alcohol or drug abuse patient.[facility], IncIn the event this information is protected by the Federal Confidentiality of Alcohol and Drug Abuse Patient Records regulations: The Federal rules restrict any use of the information to criminally investigate or prosecute any alcohol or drug abuse patient.[facility], IncIn the event this information is protected by the Federal Confidentiality of Alcohol and Drug Abuse Patient Records regulations: The Federal rules restrict any use of the information to criminally investigate or prosecute any alcohol or drug abuse patient.[facility], IncIn the event this information is protected by the Federal Confidentiality of Alcohol and Drug Abuse Patient Records regulations: The Federal rules restrict any use of the information to criminally investigate or prosecute any alcohol or drug abuse patient.[facility], IncIn the event this information is protected by the Federal Confidentiality of Alcohol and Drug Abuse Patient Records regulations: The Federal rules restrict any use of the information to criminally investigate or prosecute any alcohol or drug abuse patient.[facility], IncIn the event this information is protected by the Federal Confidentiality of Alcohol and Drug Abuse Patient Records regulations: The Federal rules restrict any use of the information to criminally investigate or prosecute any alcohol or drug abuse patient.[facility], IncIn the event this information is protected by the Federal Confidentiality of Alcohol and Drug Abuse Patient Records regulations: The Federal rules restrict any use of the information to criminally investigate or prosecute any alcohol or drug abuse patient.[facility], IncIn the event this information is protected by the Federal Confidentiality of Alcohol and Drug Abuse Patient Records regulations: The Federal rules restrict any use of the information to criminally investigate or prosecute any alcohol or drug abuse patient.[facility], IncIn the event this information is protected by the Federal Confidentiality of Alcohol and Drug Abuse Patient Records regulations: The Federal rules restrict any use of the information to criminally investigate or prosecute any alcohol or drug abuse patient.[facility], IncIn the event this information is protected by the Federal Confidentiality of Alcohol and Drug Abuse Patient Records regulations: The Federal rules restrict any use of the information to criminally investigate or prosecute any alcohol or drug abuse patient.[facility], IncIn the event this information is protected by the Federal Confidentiality of Alcohol and Drug Abuse Patient Records regulations: The Federal rules restrict any use of the information to criminally investigate or prosecute any alcohol or drug abuse patient.[facility], IncIn the event this information is protected by the Federal Confidentiality of Alcohol and Drug Abuse Patient Records regulations: The Federal rules restrict any use of the information to criminally investigate or prosecute any alcohol or drug abuse patient.[facility], IncIn the event this information is protected by the Federal Confidentiality of Alcohol and Drug Abuse Patient Records regulations: The Federal rules restrict any use of the information to criminally investigate or prosecute any alcohol or drug abuse patient.[facility] Reason for Visit (unrecogniz ed section and [...] & [place] [address] [place] [address] [place] [address] Referral ID Status Reason Start Date Expiration Date V isits Requested Visits Authorized [id number] Closed Auto-Generate d Referral 05/27/2022 06/26/2023 1 [...] BE BASED ON THE PRIMARY CLINICAL RECORDS. [employer]. provides no warranty or guarantee of the accuracy or completeness of information in this document.
[2023-12-09 09:47] LABS: Estimated Average Glucose 105 mg/dL; Glycohemoglobin A1C 5.3 % (4.5-6.2)
== END 2023-12-09 08:57 | disposition home or self-care (01) ==
LOC: LAB 08:56
PROVIDERS: PCP Family Medicine; Visit Provider Family Medicine
DX: E66.9 Obesity, unspecified (principal)
CPT/HCPCS: 36415; 83036

== ENCOUNTER 2023-12-13 06:43 | Outpatient (OUT) | payer OTHER, SELFPAY ==
--- OUTSIDE RECORDS SUMMARY | 2023-12-13 06:47 | XMS_ITS | CCD ---
Author Organization [facility] Care Team Providers Care School Business Administrator Name Role Phone SHIVANI MONTEIRO Referring Unavailable GIOVANI HAGEN Primary Care Unavailable MD Erwin Hylton Attending Provider MD Giovani Hagen Primary Care Provider Giovani Hagen Primary Care Provider Erwin Hylton Unavailable GIOVANI HAGEN Primary Care Physician SUREKHA ., DR SIMON Consulting Unavailabl e [...] Consulting Unavailable MD Erwin Hylton Attending Provider [phone] MD Giovani Hagen Primary Care Provider [phone] DAKHIL, NOMA Referring [facility]available [facility] DAKHIL, NOMA Referring Unavailable [facility] Unavailable DAKHIL, NOMA Ref[facility] Unavailable MARIA DOLORES COREY Referring [facility] Unavailable Asaad, Imad Admitting Unavailable Asaad, Imad Attending Unavailable [facility] Asaad, Imad Admitting Unavailable Asaad, Imad Attending Unavailable [facility] Unavailable Hieu Giovani FRIEDMAN [facility] Care Provider [phone] BLOOD, MARY Culver Admitting Unavailable BLOOD, MARY Culver Attending Unavailable JACKSON MONTENEGRO Consulting Unavailable SONIYA PATEL Referring [facility] Unavailable MAKENNA AMAYA Consulting Unavailable Hieu Giovani FRIEDMAN [facility] Primary Care Provider BHAVESH DEJESUS Attending Unavailable GIOVANI HAGEN Attending Unavailable GIOVANI HAGEN Attending Unavailable CADE WILCOX Attending Unavailable GIOVANI HAGEN Attending Unavailable GIOVANI HAGEN Attending Unavailable AKUA DU Attending Unavailable Allergies Allergy Classification Reported Allergen(s) Allergy Type Date of Onset Reaction(s) Facility Iodine (and Iodine containting drugs) (2 sources) Iodine Drug Allergy 9 Swelling, Itching [facility] Iohexol (2 sources) Iohexol Drug Allergy 9 Itching [facility] (20 sources) Iodine; Translations: [IODINE] Drug Allergy 9 Swelling, Itching [facility] (20 sources) Iohexol; Translations: [IOHEXOL] Drug Allergy 9 Itching [facility] (1 source) Cat Propensity to adverse reactions anaphylaxis [facility] Other (1 source) tree nut, unspecified Propensity to adverse reactions anaphylaxis [facility] Other (1 source) peanut allergenic extract Drug Allergy [facility] (1 source) Cat/Feline Product Derivatives Drug allergy (disorder) 3 [facility] (1 source) No Known Medication Allergies; Translations: [No Known Medication Allergies] Propensity to adverse reactions (disorder) [facility] Repository Medications Current Medications Medication Drug Class(es) [...] capsules by mouth at bedtime Bis Subcit Tgk-Btcum-Xgpqbcry (PYLERA) 140-125-125 mg per capsule Take 3 [...] days., # 50 cap(s), Refills(s) 0, Pharmacy: [facility]/pharmacy #[id number], 158, cm, 06/29/22 8:19:00 EST, Height/Length [...] 0 Active [facility] Vyvanse 50 MG [...] doxepin HCl (D OXEPIN ORAL) estrogens, conjugated (longterm) 0.625 mg/ml vaginal cream (15 sources) Estrogen [...] Comment on above: TAKE 1 CAPSULE BY [facility] EVERY DAY IN THE MORNING FOR [...] Test Name Value Interpretation Reference Range Facility [facility] 11-02-2023 CNPN Telephone (CARDMN) BELGICA HARPER ([id number]) 1990 F Date Time Provider Department 11/02/23 [...] Status:Closed by CRISS MCCRARY on 11/02/23 Normal [facility] Extra Lavender Tubeon 2022 Extra Lavender Tube Normal [facility] Comment on above: Performed By: #### X LAV, LIVP, LIP #### [facility] [address] [facility] [place] [address] Manager Social Responsibility: Ronald Pearce MD Lipaseon 03-24-2023 Lipase [Catalytic activity/Vol] 260 U/L High 13-60 [facility] Comment on above: Performed By: #### X LAV, LIVP, LIP #### [facility] [address] [place] [address] Manager Social Responsibility: Ronald Pearce MD Liver Profileon 03-24-2023 Albumin [Mass/Vol] 3.5 g/dL Normal 3.5-5.2 [facility] Comment on above: Performed By: #### X LAV, LIVP, LIP ####[facility] [address] [place] [address] Lab Director: Ronald Pearce MD Alkaline Phos 321 U/L High 35-104 [facility] Comment on above: Performed By: #### X LAV, LIVP, LIP ####[facility] [address] [place] [phone] Director: Ronald eParce MD ALT [Catalytic activity/Vol] 137 U/L High 5-33 [facility] Comment on above: Performed By: #### X LAV, LIVP, LIP ####[facility] [address] [place] [phone] Director: Ronald Pearce MD AST [Catalytic activity/Vol] 60 U/L High <32 [facility] Comment on above: Performed By: #### X LAV, LIVP, LIP ####[facility] [address] [facility] [place] [phone] Director: Ronald Pearce MD Bilirubin [Mass/Vol] 1.0 mg/dL Normal 0.3-1.2 [facility] [place] Comment on above: Performed By: #### X LAV, LIVP, LIP ####[facility] [id number] [place] [address] Lab Director: Ronald Pearce MD Bilirubin, Indirect 0.4 mg/dL Normal 0.0-1.0 [facility] Comment on above: Performed By: #### X LAV, LIVP, LIP ####[facility] [address] [place] [phone] Director: Ronald Pearce MD Bilirubin.indirect [Mass/Vol] 0.6 mg/dL High <0.3 [facility] Comment on above: Performed By: #### X LAV, LIVP, LIP ####[facility] [id number] [place] [address] Lab Director: Ronald Pearce MD Protein [Mass/Vol] 5.7 g/dL Low 6.4-8.3 [facility] Comment on above: Performed By: #### X LAV, LIVP, LIP ####[facility] [id number] [facility], [place] [phone] lab Director: Ronald Pearce MD Extra Lavender Tubeon 2022 Extra Lavender Tube Normal [facility] Comment on above: Performed By: #### L IVP, XLAV ####[facility] [id number] [facility], [place] [id number] lab Director: Ronald Pearce MD FL CHOLANGIOGRAM [...] Danny Cole MD 03/23/23 Final result Normal [facility] Liver Profileon 03-23-2023 Albumin [Mass/Vol] 3.5 g/dL Normal 3.5-5.2 [facility] Comment on above: Performed By: #### L IVP, XLAV ####[facility] [address] [facility], [place] [id number] lab Director: Ronald Pearce MD Alkaline Phos 293 U/L High 35-104 [facility] Comment on above: Performed By: #### L IVP, XLAV ####[facility] [address] [place] [address] Lab Director: Ronald Pearce MD ALT [Catalytic activity/Vol] 111 U/L High 5-33 [facility] Comment on above: Performed By: #### L IVP, XLAV ####[facility] [address] [place] [phone] Director: Ronald Pearce MD AST [Catalytic activity/Vol] 43 U/L High <32 [facility] Comment on above: Performed By: #### L IVP, XLAV ####[facility] [address] [place] [address] Lab Director: Ronald Pearce MD Bilirubin [Mass/Vol] 2.6 mg/dL High 0.3-1.2 [facility] [place] Comment on above: Performed By: #### L IVP, XLAV ####[facility] [address] [place] [address] Lab Director: Ronald Pearce MD Bilirubin, Indirect 0.8 mg/dL Normal 0.0-1.0 [facility] Comment on above: Performed By: #### L IVP, XLAV ####[facility] [address] [place] [address] Lab Director: Ronald Pearce MD Bilirubin.indirect [Mass/Vol] 1.8 mg/dL High <0.3 [facility] Comment on above: Performed By: #### L IVP, XLAV ####[facility] [address] [place] [address] Lab Director: Ronald Pearce MD Protein [Mass/Vol] 5.7 g/dL Low 6.4-8.3 [facility] Comment on above: Performed By: #### L IVP, XLAV ####[facility] [address] [place], [place] [id number] lab Director: Ronald Pearce MD Surgical Pathology Reporton 03-23-2023 Surgical Pathology Report (NOTE) Path Number: [id number] -- Diagnosis -- A. GALLBLADDER AND CONTENTS, [...] lesions or periductal lymph nodes are identified. Fiscal Economist sections 1c. tm SM/tb1:03/24/2023 Microscopic Description Microscopic examination performed. Processing Lab: [address] [id number] Interpretation Performed at [address] [id number] SURGICAL PATHOLOGY CONSULTATION Patient Name: BELGICA HARPER Med Rec: [id number] [facility] ANATOMIC PATHOLOGY [facility] [facility]. [place], [place] [id number] Normal [facility] CBC with Diffon 03-22-2023 Abs. Basophil <0.03 Normal 0.00-0.20 [facility] Comment on above: Performed By: #### C DP, LIP, CMPX #### [facility] [address] [place] [address] Manager Social Responsibility: Ronald Pearce MD #### TRIG #### [address] [address] Manager Social Responsibility: Elio Marley MD Abs.Imm.Granulocyte 0.03 k/uL Normal 0.00-0.30 [facility] Comment on above: Performed By: #### C DP, LIP, CMPX #### [facility] [address] [place] [address] Manager Social Responsibility: Ronald Pearce MD #### TRIG #### [address] [address] Manager Social Responsibility: Elio Marley MD Abs.Neutrophil (Seg) 6.89 k/uL Normal 1.50-8.10 [facility] [place] Comment on above: Performed By: #### C DP, LIP, CMPX #### [facility] [address] [place] [address] Manager Social Responsibility: Ronald Pearce MD #### TRIG #### [address] [address] Manager Social Responsibility: Elio Marley MD Basophils/100 WBC (Bld) 0 % Normal 0-2 [facility] Comment on above: Performed By: #### C DP, LIP, CMPX #### [facility] [address] [place] [address] Manager Social Responsibility: Ronald Pearce MD #### TRIG #### [address] [address] Manager Social Responsibility: Elio Marley MD Eosinophils (Bld) [#/Vol] 0.07 10*3/uL Normal 0.00-0.44 [facility] Comment on above: Performed By: #### C DP, LIP, CMPX #### [facility] [address] [place] [address] Manager Social Responsibility: Ronald Pearce MD #### TRIG #### [address] [address] Manager Social Responsibility: Elio Marley MD Eosinophils/100 WBC (Bld) 1 % Normal 1-4 [facility] Comment on above: Performed By: #### C DP, LIP, CMPX #### [facility] [address] [place] [address] Manager Social Responsibility: Ronald Pearce MD #### TRIG #### [address] [address] Manager Social Responsibility: Elio Marley MD Erythrocyte distribution width (RBC) [Ratio] 12.2 % Normal 11.8-14.4 [facility] Comment on above: Performed By: #### C DP, LIP, CMPX #### [facility] [place] [address] Manager Social Responsibility: Ronald Pearce MD #### TRIG #### [address] [address] Manager Social Responsibility: Elio Marley MD Hematocrit (Bld) [Volume fraction] 36.9 % Normal 36.3-47.1 [facility] Comment on above: Performed By: #### C DP, LIP, CMPX #### [facility] [place] [address] Manager Social Responsibility: Ronald Pearce MD #### TRIG #### [address] [address] Manager Social Responsibility: Elio Marley MD Hemoglobin (Bld) [Mass/Vol] 12.1 g/dL Normal 11.9-15.1 [facility] Comment on above: Performed By: #### C DP, LIP, CMPX #### [facility] [address] [place] [address] Manager Social Responsibility: Ronald Pearce MD #### TRIG #### [address] [address] Manager Social Responsibility: Elio Marley MD Immature granulocytes/100 WBC (Bld) 0 % Normal 0 [facility] Comment on above: Performed By: #### C DP, LIP, CMPX #### [facility] [address] [place] [address] Manager Social Responsibility: Ronald Pearce MD #### TRIG #### [address] [address] Manager Social Responsibility: Elio Marley MD Lymphocytes (Bld) [#/Vol] 1.62 10*3/uL Normal 1.10-3.70 [facility] Comment on above: Performed By: #### C DP, LIP, CMPX #### [facility] [address] [place] [address] Manager Social Responsibility: Ronald Pearce MD #### TRIG #### [address] [address] Manager Social Responsibility: Elio Marley MD Lymphocytes/100 WBC (Bld) 18 % Low 24-43 [facility] Comment on above: Performed By: #### C DP, LIP, CMPX #### [facility] [place] [address] Manager Social Responsibility: Ronald Pearce MD #### TRIG #### [address] [address] Manager Social Responsibility: Elio Marley MD MCH (RBC) [Entitic mass] 32.5 pg Normal 25.2-33.5 [facility] Comment on above: Performed By: #### C DP, LIP, CMPX #### [facility] [place] [address] Manager Social Responsibility: Ronald Pearce MD #### TRIG #### [address] [address] Manager Social Responsibility: Elio Marley MD MCHC (RBC) [Mass/Vol] 32.8 g/dL Normal 28.4-34.8 [facility] Comment on above: Performed By: #### C DP, LIP, CMPX #### [facility] [address] [place] [address] Manager Social Responsibility: Ronald Pearce MD #### TRIG #### [address] [address] Manager Social Responsibility: Elio Marley MD MCV (RBC) [Entitic vol] 99.2 fL Normal 82.6-102.9 [facility] Comment on above: Performed By: #### C DP, LIP, CMPX #### [facility] [address] [place] [address] Manager Social Responsibility: Ronald Pearce MD #### TRIG #### [address] [address] Manager Social Responsibility: Elio Marley MD Monocytes (Bld) [#/Vol] 0.57 10*3/uL Normal 0.10-1.20 [facility] Comment on above: Performed By: #### C DP, LIP, CMPX #### [facility] [address] [place] [address] Manager Social Responsibility: Ronald Pearce MD #### TRIG #### [address] [phone] Manager Social Responsibility: Elio Marley MD Monocytes/100 WBC (Bld) 6 % Normal 3-12 [facility] Comment on above: Performed By: #### C DP, LIP, CMPX #### [facility] [address] [place] [address] Manager Social Responsibility: Ronald Pearce MD #### TRIG #### [address] [phone] Manager Social Responsibility: Elio Marley MD Neutrophil (Seg) 75 % High 36-65 [facility] Comment on above: Performed By: #### C DP, LIP, CMPX #### [facility] [address] [place] [address] Manager Social Responsibility: Ronald Pearce MD #### TRIG #### [address] [phone] Manager Social Responsibility: Elio Marley MD NRBC Automated 0.0 per 100 WBC Normal 0.0 [facility] Comment on above: Performed By: #### C DP, LIP, CMPX #### [facility] [address] [place] [address] Manager Social Responsibility: Ronald Pearce MD #### TRIG #### [address] [phone] Manager Social Responsibility: Elio Marley MD Platelet mean volume (Bld) [Entitic vol] 10.7 fL Normal 8.1-13.5 [facility] Comment on above: Performed By: #### C DP, LIP, CMPX #### [facility] [address] [place] [address] Manager Social Responsibility: Ronald Pearce MD #### TRIG #### [address] [phone] Manager Social Responsibility: Elio Marley MD Platelets (Bld) [#/Vol] 188 10*3/uL Normal 138-453 [facility] Comment on above: Performed By: #### C DP, LIP, CMPX #### [facility] [place] [address] Manager Social Responsibility: Rnoald Pearce MD #### TRIG #### [address] [address] Manager Social Responsibility: Elio Marley MD RBC (Bld) [#/Vol] 3.72 10*6/uL Low 3.95-5.11 [facility] Comment on above: Performed By: #### C DP, LIP, CMPX #### [facility] [address] [place] [address] Manager Social Responsibility: Ronald Pearce MD #### TRIG #### [address] [address] Manager Social Responsibility: Elio Marley MD WBC (Bld) [#/Vol] 9.2 10*3/uL Normal 3.5-11.3 [facility] Comment on above: Performed By: #### C DP, LIP, CMPX #### [facility] [address] [place] [address] Manager Social Responsibility: Ronald Pearce MD #### TRIG #### [address] [address] Manager Social Responsibility: Elio Marley MD Comp Metabolic Pr/rfx MGon 05-22-2022 Albumin [Mass/Vol] 3.5 g/dL Normal 3.5-5.2 [facility] Comment on above: Performed By: #### C DP, LIP, CMPX #### [facility] [address] [place] [address] Manager Social Responsibility: Ronald Pearce MD #### TRIG #### [id number] [place] [address] Manager Social Responsibility: Elio Marley MD Alkaline Phos 157 U/L High 35-104 [facility] Comment on above: Performed By: #### C DP, LIP, CMPX #### [facility] [address] [place] [address] Manager Social Responsibility: Ronald Pearce MD #### TRIG #### [address] [address] Manager Social Responsibility: Elio Marley MD ALT [Catalytic activity/Vol] 131 U/L High 5-33 [facility] Comment on above: Performed By: #### C DP, LIP, CMPX #### [facility] [address] [place] [address] Manager Social Responsibility: Ronald Pearce MD #### TRIG #### [address] [address] Manager Social Responsibility: Elio Marley MD Anion gap [Moles/Vol] 11 mmol/L Normal 9-17 [facility] Comment on above: Performed By: #### C DP, LIP, CMPX #### [facility] [address] [place] [address] Manager Social Responsibility: Ronald Pearce MD #### TRIG #### [address] [address] Manager Social Responsibility: Elio Marley MD AST [Catalytic activity/Vol] 34 U/L High <32 [facility] Comment on above: Performed By: #### C DP, LIP, CMPX #### [facility] [address] [place] [address] Manager Social Responsibility: Ronald Pearce MD #### TRIG #### [address] [place] [address] Manager Social Responsibility: Elio Marley MD Bilirubin [Mass/Vol] 1.9 mg/dL High 0.3-1.2 [facility] [place] Comment on above: Performed By: #### C DP, LIP, CMPX #### [facility] [address] [place] [address] Manager Social Responsibility: Ronald Pearce MD #### TRIG #### [address] [address] Manager Social Responsibility: Elio Marley MD BUN/CRE Ratio 17 Normal 9-20 [facility] Comment on above: Performed By: #### C DP, LIP, CMPX #### [facility] [address] [place] [address] Manager Social Responsibility: Ronald Pearce MD #### TRIG #### [address] [address] Manager Social Responsibility: Elio Marley MD Calcium [Mass/Vol] 8.1 mg/dL Low 8.6-10.4 [facility] Comment on above: Performed By: #### C DP, LIP, CMPX #### [facility] [address] [place] [address] Manager Social Responsibility: Ronald Pearce MD #### TRIG #### [address] [address] Manager Social Responsibility: Elio Marley MD Chloride [Moles/Vol] 105 mmol/L Normal 98-107 [facility] [place] Comment on above: Performed By: #### C DP, LIP, CMPX #### [facility] [address] [place] [address] Manager Social Responsibility: Ronald Pearce MD #### TRIG #### [address] [address] Manager Social Responsibility: Elio Marley MD CO2 [Moles/Vol] 21 mmol/L Normal 20-31 [facility] Comment on above: Performed By: #### C DP, LIP, CMPX #### [facility] [address] [place] [address] Manager Social Responsibility: Ronald Pearce MD #### TRIG #### [address] [address] Manager Social Responsibility: Elio Marley MD Creatinine [Mass/Vol] 0.6 mg/dL Normal 0.5-0.9 [facility] Comment on above: Performed By: #### C DP, LIP, CMPX #### [facility] [address] [place] [address] Manager Social Responsibility: Ronald Pearce MD #### TRIG #### [address] [address] Manager Social Responsibility: Elio Marley MD GFR/1.73 sq M.predicted among non-blacks MDRD (S/P/Bld) [Vol rate/Area] mL/min/{1.73_m2} Normal >60 [facility] Comment on above: Result Comment: These results [...] By: #### C DP, LIP, CMPX #### [facility] [address] [place] [address] Manager Social Responsibility: Ronald Pearce MD #### TRIG #### [address] [place] [address] Manager Social Responsibility: Elio Marley MD Glucose [Mass/Vol] 75 mg/dL Normal 70-99 [facility] Comment on above: Performed By: #### C DP, LIP, CMPX #### [facility] [address] [place] [address] Manager Social Responsibility: Ronald Pearce MD #### TRIG #### [address] [address] Manager Social Responsibility: Elio Marley MD Potassium [Moles/Vol] 4.0 mmol/L Normal 3.7-5.3 [facility] Comment on above: Performed By: #### C DP, LIP, CMPX #### [facility] [address] [place] [address] Manager Social Responsibility: Ronald Pearce MD #### TRIG #### [address] [address] Manager Social Responsibility: Elio Marley MD Protein [Mass/Vol] 5.7 g/dL Low 6.4-8.3 [facility] Comment on above: Performed By: #### C DP, LIP, CMPX #### [facility] [address] [place] [address] Manager Social Responsibility: Ronald Pearce MD #### TRIG #### [address] [address] Manager Social Responsibility: Elio Marley MD Sodium [Moles/Vol] 137 mmol/L Normal 135-144 [facility] Comment on above: Performed By: #### C DP, LIP, CMPX #### [facility] [address] [place] [address] Manager Social Responsibility: Ronald Pearce MD #### TRIG #### [address] [place] [address] Manager Social Responsibility: Elio Marley MD Urea nitrogen [Mass/Vol] 10 mg/dL Normal 6-20 [facility] Comment on above: Performed By: #### C DP, LIP, CMPX #### [facility] [address] [place] [address] Manager Social Responsibility: Ronald Pearce MD #### TRIG #### [address] [address] Manager Social Responsibility: Elio Marley MD K (Potassium)on 03-22-2023 Potassium [Moles/Vol] 3.8 mmol/L Normal 3.7-5.3 [facility] Comment on above: Performed By: #### K #### [facility] [address] [place] [address] Manager Social Responsibility: Ronald Pearce MD Lipaseon 03-22-2023 Lipase [Catalytic activity/Vol] 198 U/L High 13-60 [facility] Comment on above: Performed By: #### C DP, LIP, CMPX #### [facility] [address] [place] [address] Manager Social Responsibility: Ronald Pearce MD #### TRIG #### [address] [address] Manager Social Responsibility: Elio Marley MD MRI ABDOMEN WO CONTRAST [...] Daniel Hooker MD 03/22/23 Final result Normal [facility] Triglycerideson 03-22-2023 Triglyceride [Mass/Vol] 102 mg/dL Normal 0-149 [facility] Comment on above: Result Comment: Triglyceride Guidelines: <150 Desirable 150-199 Borderline 200-499 High >499 Very high Based on AHA Guidelines for fasting triglyceride, January 2012. Performed By: #### C DP, LIP, CMPX #### [facility] [address] [place], [place] [address] Manager Social Responsibility: Ronald Pearce MD #### TRIG #### [facility] [address] [place], [place] [id number] Manager Social Responsibility: MD Lincoln Gordillo 03-20-2023 ISABELN Telephone (FVPRAD) BELGICA HARPER ([id number]) 1990 F Date Time Provider Department 03/20/23 [...] Status:Closed by LAWRENCE CAMPUZANO on 03/20/23 Normal [facility] DENY Antinuclear Antibodieson 10-26-2022 Antinuclear Abs, IFA Negative Normal . [facility] Comment on above: Order Comment: Reaso n for Exam Elevated liver enzymes Result Comment: Nega tive <1:80 Borderline 1:80 Positive >1:80 ICAP nomenclature: AC-0 For more information about Hep-2 cell patterns use ANApatterns.org, the official website for the International Consensus on Antinuclear Antibody (DENY) Patterns (ICAP). Performed at: - [place] [id number] Manager Social Responsibility: Demarcus Moreno PhD, Phone: [phone] Performed By: #### A NA, HEMOCHROM, IGG, MITOM2, ALPHA PHEN, HAABT, SMAB, CERULOP, L-K MICRO #### [facility] , #### CONSTANTINO #### [facility] [address] [place] [address] Sdffc-8-Uabdcljfcgh Phenotyp kwasi 10-26-2022 Alpha 1 Anti-Trypsin 121 mg/dL Normal 100-188 [facility] Comment on above: Order Comment: Reaso n for Exam Elevated liver enzymes Performed By: #### A NA, HEMOCHROM, IGG, MITOM2, ALPHA PHEN, HAABT, SMAB, CERULOP, L-K MICRO #### [facility] , #### CONSTANTINO #### [facility] [address] [place] [address] Phenotype (P1) MM Normal . [facility] Comment on above: Order Comment: [...] Ranges used to confirm phenotype. Performed at: [address] [id number] Manager Social Responsibility: Demarcus Moreno PhD, Phone: [phone] Performed at: [address] [id number] Manager Social Responsibility: Yuli Callejas MD, Phone: [phone] Performed By: #### A NA, HEMOCHROM, IGG, MITOM2, ALPHA PHEN, HAABT, SMAB, CERULOP, L-K MICRO #### [facility] , #### CONSTANTINO #### [address] Ceruloplasminon 10-26-2022 Ceruloplasmin 27.2 mg/dL Normal 19.0-39.0 [facility] Comment on above: Order Comment: Reaso n for Exam Elevated liver enzymes Result Comment: Perf ormed at: [address] [id number] Manager Social Responsibility: Demarcus Moreno PhD, Phone: [phone] PERFORMED BY: [place] [address] PATHOLOGIST [employer] ILIANA CAMP M.D. Performed By: #### A NA, HEMOCHROM, IGG, MITOM2, ALPHA PHEN, HAABT, SMAB, CERULOP, L-K MICRO #### [facility] , #### CONSTANTINO #### [address] Ferritinon 10-26-2022 Ferritin [Mass/Vol] 106.5 ng/mL Normal 11.0-306.8 [facility] Comment on above: Order Comment: pt is fasting Reason for Exam Elevated liver enzymes Result Comment: PERF ORMED BY: [place] [address] PATHOLOGIST [employer] ILIANA CAMP M.D. Performed By: #### A NA, HEMOCHROM, IGG, MITOM2, ALPHA PHEN, HAABT, SMAB, CERULOP, L-K MICRO #### [facility] , #### CONST[place]INO #### [address] Ferritin [Mass/volume] in Se rum or PlasmaOrdered By: Erwin Hylton on 10-26-2022 Ferritin [Mass/Vol] 106.5 ng/mL 11.0-306.8 [facility] Hepatitis A Antibody Totalon 10-26-2022 Hepatitis A Antibody Total Negative Normal Negative [facility] Comment on above: Order Comment: Reaso n for Exam Elevated liver enzymes Result Comment: Perf ormed at: [facility] [address] [id number] Manager Social Responsibility: Demarcus Moreno PhD, Phone: [phone] PERFORMED BY: [place] [address] PATHOLOGIST [employer] ILIANA CAMP M.D. Performed By: #### A NA, HEMOCHROM, IGG, MITOM2, ALPHA PHEN, HAABT, SMAB, CERULOP, L-K MICRO #### [facility] , #### CONST[place]INO #### [address] Hereditary Hemochromatosis,D NAon 10-26-2022 Hereditary Hemochromatosis Normal . [facility] Comment on above: Order Comment: Reaso n for Exam Elevated liver enzymes Result Comment: Resu lt: c.845G>A (p.Yji743End) - Not Detected c.187C>G (p.Zdz79Byf) - Not Detected c.193A>T (p.Xls39Tjp) - Not Detected Not associated with increased [...] for patients who are homozygous for c.845G>A (p.Xxm347Sru) and have yet to experience clinical symptoms. Comments: The most common HFE variants associated with hereditary hemochromatosis are c.845G>A (p.Ziv713Plh), c.187C>G (p.Vxt06Llk), c.193A>T (p.Pjf26Pnx). While patients homozygous for c.845G>A (p.Uwg215Zym) are the most likely to present clinical symptoms, less than 10% develop clinically significant iron overload with tissue and organ damage. Genetic counseling is recommended to discuss the potential clinical implications of positive results, as well as recommendations for testing family members. Genetic Coordinators are available for health care providers to discuss results at [phone] ([phone]). Test Details: Three variants analyzed: c.845G>A (p.Tby410Tkr), commonly referred to as C282Y c.187C>G (p.Dty64Jxq), commonly referred to as H63D c.193A>T (p.Zab86Ctt), commonly referred to as S65C Methods/Limitations: DNA [...] developed and its performance characteristics determined by [employer]. It has not been cleared or approved by the Food and Drug Administration. References: Brodie BR, Yoav PC, Deborah KV, Raymond LW, Ramsey ; [place] Association for the Study of Liver Diseases. Diagnosis and management of hemochromatosis: 2011 practice guideline by the [place] Association for the Study of Liver Diseases. Hepatology. 2011 Oct;54(1):328-43. doi: 10.1002/hep.52832. PMID: 11330973; PMCID: [id number]. Cora G, Olegario P, Fabio DW, Tabatha H, Love O, Zev S, Vazquez I, Kofi M, Sunitha S. [facility] best practice guidelines for the molecular genetic diagnosis of hereditary hemochromatosis (HH). Eur J Hum Margaret. 2016 Jul;24(4):479-95. doi: 10.1038/ejhg.2015.128. Epub 2014Oct 29. PMID: 48395728; PMCID: ZBK3525140. Performed By: #### A NA, HEMOCHROM, IGG, MITOM2, ALPHA PHEN, HAABT, SMAB, CERULOP, L-K MICRO #### [facility] , #### CONSTANTINO #### [place] [address] [place] Reviewed by: Dm Reyna, PhD Normal . [facility] Comment on above: Order Comment: Reaso n for Exam Elevated liver enzymes Result Comment: Perf ormed at: TG - [facility]P [address] [facility], [facility] [place] [id number] Manager Social Responsibility: Vivian Kelley [facility], Phone: [phone] PERFORMED BY: [place] [address] PATHOLOGIST [employer] ILIANA CAMP M.D. Performed By: #### A NA, HEMOCHROM, IGG, MITOM2, ALPHA PHEN, HAABT, SMAB, CERULOP, L-K MICRO #### [facility] , #### CONST[place]INO #### [address] Immunoglobulin Harvey Immunoglobulin G 865 mg/dL Normal 586-1602 [facility] Comment on above: Order Comment: Reaso n for Exam Elevated liver enzymes Result Comment: Perf ormed at: - [facility] [address] [id number] Manager Social Responsibility: Demarcus Moreno PhD, Phone: [phone] Performed By: #### A NA, HEMOCHROM, IGG, MITOM2, ALPHA PHEN, HAABT, SMAB, CERULOP, L-K MICRO #### [facility] , #### [place]ST[place]INO #### [address] Liver-Kidney Microsomal Abon 10-26-2022 Liver-Kidney Microsomal Ab <1.0 Normal 0.0-20.0 [facility] Comment on above: Order Comment: [...] MICRO #### [facility] , #### CONSTANTINO #### [facility] [address] [place] [address] Mitochondrial (M2) Antibodyo n 10-26-2022 Mitochondrial (M2) Antibody <20.0 Normal 0.0-20.0 [facility] Comment on above: Order Comment: Reaso n for Exam Elevated liver enzymes Result Comment: Nega tive 0.0 - 20.0 Equivocal 20.1 - 24.9 Positive >24.9 Mitochondrial (M2) Antibodies are found in 90-96% of patients with primary biliary cirrhosis. Performed at: [address] [id number] Manager Social Responsibility: Demarcus Moreno PhD, Phone: [phone] Performed By: #### A NA, HEMOCHROM, IGG, MITOM2, ALPHA PHEN, HAABT, SMAB, CERULOP, L-K MICRO #### [facility] , #### CONST[place]INO #### [address] Smooth Muscle Antibodyon Smooth Muscle Antibody 4 Normal 0-19 [facility] Comment on above: Order Comment: [...] MICRO #### [facility] , #### CONST[place]INO #### [address] US liveron 10-26-2022 liver [facility] [place] [address] Ultrasound Report Signed Patient: Belgica Harper MR#: [id number] : 1990 Acct:[id number] Age/Sex: 32 / F ADM Date: 10/26/22 Loc: Room: Type: [facility] Attending Dr: Erwin Hylton MD Ordering [...] Perdomo Jr., D.O.10/26/2022 3:24 PM Dictation Location: [place] [address] Tech: Francia Lopez Transcribed By: GRANT 10/26/22 152 Dictated By: Alexandro Perdomo Jr, DO 10/26/22 152 Signed By: 10/26/22 1524 Normal [facility] ACETYLCHOLINE REC BINDING AB on 10-17-2022 ACETYLCHOLINE BINDING, QUAL Negative Normal Negative [facility] Comment on above: Order Comment: Rl basilio Type: BLOOD SPECIMEN Ordering Facility: [facility] Address: [address] [place] [address] Result Comment: Anti -acetylcholine receptor binding antibody test is used as an aid in diagnosis of myasthenia gravis. A negative result cannot exclude myasthenia gravis. Clinical correlation is required. Performed By: #### 3 016-3, 2156-09 #### [facility] CLIA [id number] [place] [address] [place] Acetylcholine receptor binding Ab (S) [Moles/Vol] <0.02 Normal <0.21 [facility] Comment on above: Order Comment: Rl basilio Type: BLOOD SPECIMEN Ordering Facility: [facility] Address: [address] [place] [address] Performed By: #### 3 016-3, 2156-09 #### [facility] CLIA [id number] [facility] [place] [address] [place] AMINO ACIDS, PLASMA W/ CONSU LTATIONon 10-17-2022 Alanine [Moles/Vol] 310 umol/L Normal 177-583 [facility] Comment on above: Order Comment: Rl basilio Type: BLOOD SPECIMEN Ordering Facility: [facility] Address: [address] [place] [address] Performed By: #### 3 016-3, 2156-09 #### [facility] CLIA [id number] [facility] [place], [place] [id number] [place] [address] [place] Alloisoleucine [Moles/Vol] 2 umol/L Normal 0-2 [facility] Comment on above: Order Comment: Speci men Type: BLOOD SPECIMEN Ordering Facility: [facility] Address: [address] [place] [address] Performed By: #### 3 016-, 2156-09 #### [facility] IA [id number] [address] [facility] [place] [address] [place] Alpha aminoadipate [Moles/Vol] <1 Normal 0-6 [facility] Comment on above: Order Comment: Speci men Type: BLOOD SPECIMEN Ordering Facility: [facility] Address: [address] [place] [address] Performed By: #### 3 016-, 2156-09 #### [facility] IA [id number] [address] [place], [place] [address] [place] [address] AMINO ACID CONSULTATION, PLASMA Normal [facility] Comment on above: Order Comment: Speci men Type: BLOOD SPECIMEN Ordering Facility: [facility] Address: [address] [place] [address] Result Comment: This plasma amino acid analysis shows no significant abnormalities. Reference intervals from Isacc E, Len MG, Kate FANTASMA, and Christopher DK: Biochemical Genetics: A Laboratory Manual, Copyright 1989 by [employer] Reference intervals not established for some amino acids. This test was developed and its performance characteristics determined by [facility]'s Fuad JRajesh [facility] Pathology and Laboratory Medicine [place] ([facility]). It has not been cleared or approved by the FDA. -[facility] is regulated under CLIA as qualified to perform high complexity testing. This test is used for clinical purposes. It should not be regarded as investigational or for research. Performed By: #### 3 016-3, 2156-09 #### [facility] IA [id number] [address] [place] [address] [place] AMINO ACIDS REVIEW, PLASMA Reviewed by Patrick Proctor MD, Ph.D ([id number]) Normal [facility] Comment on above: Order Comment: Speci men Type: BLOOD SPECIMEN Ordering Facility: [facility] Address: [place] [address] Performed By: #### 3 016-3, 1987-08, 2156-09 #### [facility] CLIA [id number] [address] [place] [address] [place] Arginine [Moles/Vol] 77 umol/L Normal 15-128 [facility] Comment on above: Order Comment: Speci men Type: BLOOD SPECIMEN Ordering Facility: [facility] Address: [place] [address] Performed By: #### 3 016-3, 1987-08, 2156-09 #### [facility] CLIA [id number] [address] [place] [address] [place] Asparagine [Moles/Vol] 44 umol/L Normal 35-74 [facility] Comment on above: Order Comment: Speci men Type: BLOOD SPECIMEN Ordering Facility: [facility] Address: [place] [address] Performed By: #### 3 016-3, 1987-08, 2156-09 #### [facility] CLIA [id number] [address] [place] [address] [place] Aspartate [Moles/Vol] 2 umol/L Normal 1-25 [facility] Comment on above: Order Comment: Speci men Type: BLOOD SPECIMEN Ordering Facility: [facility] Address: [address] Performed By: #### 3 016-3, 1987-08, 2156-09 #### [facility] CLIA [id number] [address] [place] [address] [place] Citrulline [Moles/Vol] 25 umol/L Normal 12-55 [facility] Comment on above: Order Comment: Speci men Type: BLOOD SPECIMEN Ordering Facility: [facility] Address: [address] [place] [address] Performed By: #### 3 016-3, 1987-08, 2156-09 #### [facility] CLIA [id number] [address] [place] [address] [place] Cystine [Moles/Vol] 33 umol/L Normal 5-82 [facility] Comment on above: Order Comment: Speci men Type: BLOOD SPECIMEN Ordering Facility: [facility] Address: [address] [place], [place] [address] Performed By: #### 3 016-3, 2156-09 #### [facility] CLIA [id number] [address] [place] [address] [place] Glutamate [Moles/Vol] 31 umol/L Normal 10-131 [facility] Comment on above: Order Comment: Speci men Type: BLOOD SPECIMEN Ordering Facility: [facility] Address: [address] [place] [address] Performed By: #### 3 016-3, 2156-09 #### [facility] IA [id number] [address] [place] [address] [place] Glutamine [Moles/Vol] 652 umol/L Normal 205-756 [facility] Comment on above: Order Comment: Speci men Type: BLOOD SPECIMEN Ordering Facility: [facility] Address: [address] [place] [address] Performed By: #### 3 016-3, 2156-09 #### [facility] CLIA [id number] [address] [place] [address] [place] Glycine [Moles/Vol] 351 umol/L Normal 151-490 [facility] Comment on above: Order Comment: Speci men Type: BLOOD SPECIMEN Ordering Facility: [facility] Address: [address] [place] [address] Performed By: #### 3 016-3, 2156-09 #### [facility] CLIA [id number] [address] [place] [address] [place] Histidine [Moles/Vol] 82 umol/L Normal 72-124 [facility] Comment on above: Order Comment: Speci men Type: BLOOD SPECIMEN Ordering Facility: [facility] Address: [address] Performed By: #### 3 016-3, 2156-09 #### [facility] CLIA [id number] [address] [place] [address] [place] Hydroxylysine [Moles/Vol] <1 High <=0 [facility] Comment on above: Order Comment: Speci men Type: BLOOD SPECIMEN Ordering Facility: [facility] Address: [address] [place] [address] Performed By: #### 3 016-3, 2156-09 #### [facility] IA [id number] [address] [place] [address] [place] Hydroxyproline [Moles/Vol] 9 umol/L Normal 0-53 [facility] Comment on above: Order Comment: Speci men Type: BLOOD SPECIMEN Ordering Facility: [facility] Address: [address] [place] [address] Performed By: #### 3 016-3, 2156-09 #### [facility] IA [id number] [address] [place] [address] [place] Isoleucine [Moles/Vol] 66 umol/L Normal 30-108 [facility] Comment on above: Order Comment: Speci men Type: BLOOD SPECIMEN Ordering Facility: [facility] Address: [address] Performed By: #### 3 016-3, 1987-08, 2156-09 #### [facility] CLIA [id number] [address] [place] [address] [place] Leucine [Moles/Vol] 109 umol/L Normal 72-201 [facility] Comment on above: Order Comment: Speci men Type: BLOOD SPECIMEN Ordering Facility: [facility] Address: [address] [place] [address] Performed By: #### 3 016-3, 2156-09 #### [facility] CLIA [id number] [address] [place] [address] [place] Lysine [Moles/Vol] 220 umol/L Normal 116-296 [facility] Comment on above: Order Comment: Speci men Type: BLOOD SPECIMEN Ordering Facility: [facility] Address: [address] [place] [address] Performed By: #### 3 016-3, 1987-08, 2156-09 #### [facility] CLIA [id number] [address] [place] [address] [place] Methionine [Moles/Vol] 20 umol/L Normal 10-42 [facility] Comment on above: Order Comment: Speci men Type: BLOOD SPECIMEN Ordering Facility: [facility] Address: [address] [place] [address] Performed By: #### 3 016-3, 2156-09 #### [facility] IA [id number] [address] [place] [address] [place] Ornithine [Moles/Vol] 64 umol/L Normal 48-195 [facility] Comment on above: Order Comment: Speci men Type: BLOOD SPECIMEN Ordering Facility: [facility] Address: [address] [place], [place] [address] Performed By: #### 3 016-3, 2156-09 #### [facility] IA [id number] [address] [place] [address] [place] Phenylalanine [Moles/Vol] 42 umol/L Normal 35-85 [facility] Comment on above: Order Comment: Speci men Type: BLOOD SPECIMEN Ordering Facility: [facility] Address: [address] [place], [place] [address] Performed By: #### 3 016-3, 2156-09 #### [facility] IA [id number] [address] [place] [address] [place] Proline [Moles/Vol] 187 umol/L Normal 97-329 [facility] Comment on above: Order Comment: Speci men Type: BLOOD SPECIMEN Ordering Facility: [facility] Address: [address] [place] [address] Performed By: #### 3 016-3, 1987-08, 2156-09 #### [facility] CLIA [id number] [address] [place] [address] [place] Sarcosine [Moles/Vol] <1 High <=0 [facility] Comment on above: Order Comment: Speci men Type: BLOOD SPECIMEN Ordering Facility: [facility] Address: [address] [place] [address] Performed By: #### 3 016-3, 1987-08, 2156-09 #### [facility] IA [id number] [address] [place] [address] [place] Serine [Moles/Vol] 107 umol/L Normal 58-181 [facility] Comment on above: Order Comment: Speci men Type: BLOOD SPECIMEN Ordering Facility: [facility] Address: [address] [place] [address] Performed By: #### 3 016-3, 1987-08, 2156-09 #### [facility] IA [id number] [address] [place] [address] [place] Taurine [Moles/Vol] 46 umol/L Low 54-210 [facility] Comment on above: Order Comment: Speci men Type: BLOOD SPECIMEN Ordering Facility: [facility] Address: [address] [place] [address] Performed By: #### 3 016-3, 1987-08, 2156-09 #### [facility] IA [id number] [address] [place] [address] [place] Threonine [Moles/Vol] 147 umol/L Normal 60-225 [facility] Comment on above: Order Comment: Speci men Type: BLOOD SPECIMEN Ordering Facility: [facility] Address: [address] [place] [address] Performed By: #### 3 016-3, 1987-08, 2156-09 #### [facility] IA [id number] [address] [place] [address] [place] Tyrosine [Moles/Vol] 51 umol/L Normal 34-112 [facility] Comment on above: Order Comment: Speci men Type: BLOOD SPECIMEN Ordering Facility: [facility] Address: [address] [place] [address] Performed By: #### 3 016-3, 2156-09 #### [facility] CLIA [id number] [address] [place] [address] [place] Valine [Moles/Vol] 199 umol/L Normal 119-336 [facility] Comment on above: Order Comment: Speci men Type: BLOOD SPECIMEN Ordering Facility: [facility] Address: [address] [place] [address] Performed By: #### 3 016-3, 2156-09 #### [facility] IA [id number] [address] [place] [address] [place] CARNITINE FREE/TOTAL, PLASMA on 10-17-2022 C0 [Moles/Vol] 27 umol/L Normal 22-54 [facility] Comment on above: Order Comment: Speci men Type: BLOOD SPECIMEN Ordering Facility: [facility] Address: [address] [place] [address] Performed By: #### C ARNPL #### [facility] CLIA [id number] [address] [facility] [place] [id number] [address] [place] C0/Total carnitine [Molar fraction] 0.675 Low 0.700-0.900 [facility] Comment on above: Order Comment: Speci men Type: BLOOD SPECIMEN Ordering Facility: [facility] Address: [address] [place] [address] Result Comment: NOTE : The determination of [...] determined by the Pathology and Laboratory Medicine [place] at the [facility]. The U.S. Food and Drug Administration has not approved or cleared this test, however, FDA clearance or approval is not currently required for clinical use. Performed By: #### C WILLIAMPL #### [facility] CLIA [id number] [address] [place] [address] [place] Carnitine [Moles/Vol] 40 umol/L Normal 27-68 [facility] Comment on above: Order Comment: [facility] Type: BLOOD SPECIMEN Ordering Facility: [facility] Address: [address] [place] [address] Performed By: #### C WILLIAMPL #### [facility] CLIA [id number] [address] [place] [address] [place] CK SerPl-cCncon 10-17-2022 CK [Catalytic activity/Vol] 50 U/L Normal 42-196 [facility] Comment on above: Order Comment: [facility] Type: BLOOD SPECIMEN Ordering Facility: [facility] Address: [address] [place] [address] Performed By: #### 3 016-3, 1987-08, 2156-09 #### [facility] CLIA [id number] [address] [place] [address] [place] CRP SerPl-mCncon 10-17-2022 CRP [Mass/Vol] 0.6 mg/dL Normal <0.9 [facility] Comment on above: Order Comment: Rl basilio Type: BLOOD SPECIMEN Ordering Facility: [facility] Address: [address] [place] [address] Performed By: #### 3 016-3, 2156-09 #### [facility] CLIA [id number] [address] [place] [address] [place] CYTOKINE PANEL 13, SERUMon 0 10-17-2022 INTERFERON GAMMA <4.2 Normal <=4.2 Lisa stein Comment on above: Order Comment: Speci men Type: BLOOD SPECIMEN Ordering Facility: [facility] Address: [address] [place] [address] Performed By: #### 3 016-3, 2156-09 #### [facility] CLIA [id number] [address] [place] [address] [place] INTERLEUKIN 1 BETA <6.5 Normal <=6.7 [facility] Comment on above: Order Comment: Speci men Type: BLOOD SPECIMEN Ordering Facility: [facility] Address: [address] [place] [address] Performed By: #### 3 3, 2156-09 #### [facility] CLIA [id number] [address] [place] [address] [place] INTERLEUKIN 10 3.2 pg/mL High <=2.8 [facility] Comment on above: Order Comment: Speci men Type: BLOOD SPECIMEN Ordering Facility: [facility] Address: [address] [place], [place] [address] Performed By: #### 3 016-3, 2156-09 #### [facility] CLIA [id number] [address] [place] [address] [place] INTERLEUKIN 12 <1.9 Normal <=1.9 [facility] Comment on above: Order Comment: Speci men Type: BLOOD SPECIMEN Ordering Facility: [facility] Address: [address] [place] [address] Performed By: #### 3 016-3, 2156-09 #### [facility] CLIA [id number] [address] [place] [address] [place] INTERLEUKIN 13 <1.7 Normal <=2.3 [facility] Comment on above: Order Comment: Speci men Type: BLOOD SPECIMEN Ordering Facility: [facility] Address: [address] [place] [address] Performed By: #### 3 016-3, 1987-08, 2156-09 #### [facility] CLIA [id number] [address] [place] [address] [place] INTERLEUKIN 17 <1.4 Normal <=1.4 [facility] Comment on above: Order Comment: Speci men Type: BLOOD SPECIMEN Ordering Facility: [facility] Address: [address] [place] [address] Performed By: #### 3 016, 1987-08, 2156-09 #### [facility] CLIA [id number] [address] [place], [place] [id number] [place] [address] [place] INTERLEUKIN 2 <2.1 Normal <=2.1 [facility] Comment on above: Order Comment: Speci men Type: BLOOD SPECIMEN Ordering Facility: [facility] Address: [address] [place] [address] Performed By: #### 3 3, 1987-08, 2156-09 #### [facility] CLIA [id number] [address] [place] [address] [place] INTERLEUKIN 4 (INT4) <2.2 Normal <=2.2 [facility] Comment on above: Order Comment: Speci men Type: BLOOD SPECIMEN Ordering Facility: [facility] Address: [address] [address] Performed By: #### 3 016-3, 1987-08, 2156-09 #### [facility] CLIA [id number] [address] [place], [place] [id number] [place] [address] [place] INTERLEUKIN 5 <2.1 Normal <=2.1 [facility] Comment on above: Order Comment: Speci men Type: BLOOD SPECIMEN Ordering Facility: [facility] Address: [address] [address] Performed By: #### 3 016-3, 2156-09 #### [facility] CLIA [id number] [address] [place] [address] [place] INTERLEUKIN 6 <2.0 Normal <=2.0 [facility] Comment on above: Order Comment: Speci men Type: BLOOD SPECIMEN Ordering Facility: [facility] Address: [address] [place] [address] Performed By: #### 3 , 2156-09 #### [facility] CLIA [id number] [address] [place] [address] [place] INTERLEUKIN 8 <3.0 Normal <=3.0 [facility] Comment on above: Order Comment: Speci men Type: BLOOD SPECIMEN Ordering Facility: [facility] Address: [address] [place] [address] Performed By: #### 3 , 2156-09 #### [facility] CLIA [id number] [address] [place], [place] [address] [place] [address] [place] INTERLEUKIN-2 RECEPTOR 355.4 pg/mL Normal 175.3-858.2 [facility] Comment on above: Order Comment: Speci men Type: BLOOD SPECIMEN Ordering Facility: [facility] Address: [address] [place] [address] Performed By: #### 3 , 2156-09 #### [facility] CLIA [id number] [place] [address] [place] TUMOR NECROSIS FACTOR - ALPHA 1.9 pg/mL Normal <=7.2 [facility] Comment on above: Order Comment: Speci men Type: BLOOD SPECIMEN Ordering Facility: [facility] Address: [address] [place] [address] Result Comment: INTE RPRETIVE INFORMATION: Cytokines Results are used to understand the pathophysiology of immune, infectious, or inflammatory disorders, or may be used for research purposes. This test was developed and its performance characteristics determined by [employer]. It has not been cleared or approved by the [place] Food and Drug Administration. This test was performed in a CLIA certified laboratory and is intended for clinical purposes. Performed By: [facility] [address] [place] [address] Database Coordinator: Terry Jacome MD, PhD Performed By: #### 3 016-3, 1987-08, 2156-09 #### [facility] CLIA [id number] [address] [facility] [place] [address] [place] ESR Westergren method (Bld) [Velocity]on 10-17-2022 ESR (Bld) [Velocity] 5 mm/h Normal 0-20 [facility] Comment on above: [facility]: BLOOD [facility] Ordering Facility: [facility] Address: [address] [address] Performed By: #### 4 537-7 #### [facility] CLIA [id number] 9500 [facility] [id number] [place] ESTROGEN FRACTION BLon 10-17 ESTRADIOL 238.7 pg/mL Normal [facility] Comment on above: Order Comment: [facility] Type: BLOOD SPECIMEN Ordering Facility: [facility] Address: [address] [address] Result Comment: REFE RENCE INTERVAL: Estradiol by [employer] For a complete set of all established reference intervals, refer to Front Desk [email or web address]/Tests/Pub/[id number]. This test was developed and its performance characteristics determined by [employer]. It has not been cleared or approved by the [place] Food and Drug Administration. This test was performed in a CLIA certified laboratory and is intended for clinical purposes. Performed By: #### 3 016-3, 1987-08, 2156-09 #### [facility] CLIA [id number] [address] [facility] [place] [address] [place] ESTROGENS TOTAL 354.8 pg/mL Normal [facility] Comment on above: Order Comment: [facility] Type: BLOOD SPECIMEN Ordering Facility: [facility] Address: [address] [address] Result Comment: Refe rence interval of estrogens (pg/mL) Estrone Estradiol Total Estrogens Early follicular <150.0 30.0-100.0 30.0-250.0 Late follicular 100.0-250.0 100.0-400.0 200.0-650.0 Luteal <200.0 50.0-150.0 50.0-350.0 Post-menopausal 3.0-32.0 2.0-21.0 5.0-52.0 REFERENCE INTERVAL: Estrogens Total Calculation For a complete set of all established reference intervals, refer to [employer]/Tests/Pub/[id number]. Performed By: [employer] [address] [place] [address] Database Coordinator: Terry Jacome MD, PhD Performed By: #### 3 016-3, 1987-08, 2156-09 #### [facility] CLIA [id number] [place] ESTRONE 116.1 pg/mL Normal [facility] Comment on above: Order Comment: Speci men Type: BLOOD SPECIMEN Ordering Facility: [facility] Address: [address] [place] [address] Result Comment: INTERPRETIVE INFORMATION: Estrone by [employer] For a complete set of all established reference intervals, refer to [employer]/Tests/Pub/[id number]. This test was developed and its performance characteristics determined by [employer]. It has not been cleared or approved by the US Food and Drug Administration. This test was performed in a CLIA certified laboratory and is intended for clinical purposes. Performed By: #### 3 016-3, 1987-08, 2156-09 #### [facility] CLIA [id number] [address] [place] [address] [place] GAD65 Ab Ser-aCncon 10-18-19 23 Glutamate decarboxylase 65 Ab Qn (S) <5.0 Normal <=5.0 [facility] Comment on above: Order Comment: Speci men Type: BLOOD SPECIMEN Ordering Facility: [facility] Address: [address] [place] [address] Result Comment: Anti -glutamic acid decarboxylase antibody [...] Performed By: #### 3 016-3, 2156-09 #### [facility] CLIA [id number] [address] [facility]. [place], [place] [id number] [place] [address] [place] Glutamate decarboxylase 65 A b Qn (S)on 10-17-2022 GLUTAMIC ACID DECARBOXYLAS AB QUALITATIVE Negative Normal Negative [facility] Comment on above: Order Comment: Rl basilio Type: BLOOD SPECIMEN Ordering Facility: [facility] Address: [address] [place] [address] Performed By: #### 3 016-3, 2156-09 #### [facility] CLIA [id number] [address] [facility] [place] [address] [place] HbA1c (Bld)on 10-17-2022 Average glucose Estimated from glycated hemoglobin (Bld) [Mass/Vol] 88 mg/dL Normal [facility] Comment on above: Order Comment: [facility] Type: BLOOD SPECIMEN Ordering Facility: [facility] Address: [address] [place] [address] Result Comment: eAG: (Estimated average glucose) is a calculated value from HgbA1c and is high school admissions representative of the average blood glucose level in the last 2-3 month period. Performed By: #### 3 016-3, 2156-09 #### [facility] CLIA [id number] [place] HbA1c (Bld) [Mass fraction] 4.7 % Normal 4.3-5.6 [facility] Comment on above: Order Comment: [facility] Type: BLOOD SPECIMEN Ordering Facility: [facility] Address: [address] [place], [place] [address] Result Comment: Amer [place] Diabetes Association guidelines indicate that patients with HgbA1c in the range 5.7-6.4% are at increased risk for development of diabetes, and intervention by lifestyle modification may be beneficial. HgbA1c greater or equal to 6.5% is considered diagnostic of diabetes. Performed By: #### 3 016-3, 1987-08, 2156-09 #### [facility] CLIA [id number] [address] [place] [address] [place] IgA SerPl-mCncon 10-17-2022 IgA [Mass/Vol] 169 mg/dL Normal 70-400 [facility] Comment on above: Order Comment: Speci men Type: BLOOD SPECIMEN Ordering Facility: [facility] Address: [address] [place] [address] Performed By: #### 3 016-3, 1987-08, 2156-09 #### [facility] CLIA [id number] [address] [place] [address] [place] IgG SerPl-mCncon 10-17-2022 IgG [Mass/Vol] 932 mg/dL Normal 700-1600 [facility] Comment on above: Order Comment: Speci men Type: BLOOD SPECIMEN Ordering Facility: [facility] Address: [address] [place] [address] Performed By: #### 3 016-3, 1987-08, 2156-09 #### [facility] CLIA [id number] [address] [place] [address] [place] IgM SerPl-mCncon 10-17-2022 IgM [Mass/Vol] 199 mg/dL Normal 40-230 [facility] Comment on above: Order Comment: Speci men Type: BLOOD SPECIMEN Ordering Facility: [facility] Address: [address] [place] [address] Performed By: #### 3 016-3, 1987-08, 2156-09 #### [facility] CLIA [id number] [address] [place] [address] [place] LDH SerPl-cCncon 10-17-2022 LDH [Catalytic activity/Vol] 160 U/L Normal 135-214 [facility] Comment on above: Order Comment: Speci men Type: BLOOD SPECIMEN Ordering Facility: [facility] Address: [address] [place] [address] Performed By: #### 3 016-3, 1987-, 2156- #### [facility] CLIA [id number] [address] [place] [address] [place] ORGANIC ACIDS UR, QUANT W/CO NSULTon 10-17-2022 2-Hydroxyglutarate/C reatinine (U) [Molar ratio] 3.6 umol/mmolCr Normal 0.6-17.7 [facility] Comment on above: Order Comment: Speci men Type: URINE SPECIMEN Ordering Facility: [facility] Address: [address] [place] [address] Performed By: #### L [id number] #### [facility] [place] [id number] [address] [place] [address] [place] 2-Hydroxyisovalerate /Creatinine (U) [Molar ratio] <0.1 Normal 0.0-0.1 [facility] Comment on above: Order Comment: Speci men Type: URINE SPECIMEN Ordering Facility: [facility] Address: [address] Performed By: #### L [id number] #### [facility] CLIA [id number] [address] [place] [address] 0-Kbrfsq-9-hydroxybu tyrate (C5-OH)/Creatinine (U) [Molar ratio] <0.6 Normal 0.0-1.3 [facility] Comment on above: Order Comment: Speci men Type: URINE SPECIMEN Ordering Facility: [facility] Address: [address] [place] [address] Performed By: #### L [id number] #### [facility] CLIA [id number] [address] [place] [address] [place] 2-Methylbutyrylglyci ne/Creatinine (U) [Molar ratio] 0.4 umol/mmolCr Normal 0.0-0.4 [facility] Comment on above: Order Comment: Speci men Type: URINE SPECIMEN Ordering Facility: [facility] Address: [address] [place] [address] Performed By: #### L [id number] #### [facility] CLIA [id number] [address] [place] [address] 2-Methylcitrate/Crea tinine (U) [Molar ratio] 1.8 umol/mmolCr Normal 1.0-13.9 [facility] Comment on above: Order Comment: Speci men Type: URINE SPECIMEN Ordering Facility: [facility] Address: [address] [place] [address] Performed By: #### L [id number] #### [facility] IA [id number] [address] [place] [address] [place] 2-Oxoadipate/Creatin ine (U) [Molar ratio] <1.6 Normal 0.0-3.3 [facility] Comment on above: Order Comment: Speci men Type: URINE SPECIMEN Ordering Facility: [facility] Address: [address] [place] [address] Performed By: #### L [id number] #### [facility] IA [id number] [address] [place] [address] [place] 3-Hydroxyglutarate/C reatinine (U) [Molar ratio] 0.0 umol/mmolCr Normal 0.0-0.7 [facility] Comment on above: Order Comment: Speci men Type: URINE SPECIMEN Ordering Facility: [facility] Address: [address] [place] [address] Performed By: #### L [id number] #### [facility] [place] [id number] [address] [place] [address] OF [place] 3-Hydroxyisovalerate /Creatinine (U) [Molar ratio] 5.0 umol/mmolCr Normal 2.1-27.3 [facility] Comment on above: Order Comment: Speci men Type: URINE SPECIMEN Ordering Facility: [facility] Address: [address] [place] [address] Performed By: #### L [id number] #### [facility] CLIA [id number] [address] [place] [address] [place] 3-Methylcrotonylglyc ine/Creatinine (U) [Molar ratio] <0.3 Normal <0.3 [facility] Comment on above: Order Comment: Speci men Type: URINE SPECIMEN Ordering Facility: [facility] Address: [address] Performed By: #### L [id number] #### [facility] CLIA [id number] [address] [place] [address] [place] 3-Methylglutaconate/ Creatinine (U) [Molar ratio] 0.7 umol/mmolCr Normal 0.0-2.0 [facility] Comment on above: Order Comment: Speci men Type: URINE SPECIMEN Ordering Facility: [facility] Address: [address] Performed By: #### L [id number] #### [facility] CLIA [id number] [address] [place] [address] [place] 3-Methylglutarate/Cr eatinine (U) [Molar ratio] 0.5 umol/mmolCr Normal 0.0-0.6 [facility] Comment on above: Order Comment: Speci men Type: URINE SPECIMEN Ordering Facility: [facility] Address: [address] Performed By: #### L [id number] #### [facility] CLIA [id number] [address] [place] [address] [place] 4-Hydroxyphenylaceta te/Creatinine (U) [Molar ratio] 149.0 umol/mmolCr High 5.7-147.5 [facility] Comment on above: Order Comment: Speci men Type: URINE SPECIMEN Ordering Facility: [facility] Address: [address] Performed By: #### L [id number] #### [facility] CLIA [id number] [address] OF [place] 4-Hydroxyphenyllacta te/Creatinine (U) [Molar ratio] 4.3 umol/mmolCr Normal 1.3-23.0 [facility] Comment on above: Order Comment: Speci men Type: URINE SPECIMEN Ordering Facility: [facility] Address: [address] [place] [address] Performed By: #### L [id number] #### [facility] IA [id number] [address] [place] [address] [facility] OF [place] 4-Hydroxyphenylpyruv ate/Creatinine (U) [Molar ratio] 0.0 umol/mmolCr Normal <=0.0 [facility] Comment on above: Order Comment: Speci men Type: URINE SPECIMEN Ordering Facility: [facility] Address: [address] Performed By: #### L [id number] #### [facility] IA [id number] [address] [place] [address] OF [place] 5-Oxoproline/Creatin ine (U) [Molar ratio] 1.9 umol/mmolCr Normal 0.4-3.1 [facility] Comment on above: Order Comment: Speci men Type: URINE SPECIMEN Ordering Facility: [facility] Address: [address] [place] [address] Performed By: #### L [id number] #### [facility] [place] [id number] [address] [place] [address] [place] Acetoacetate/Creatin ine (U) [Molar ratio] <0.9 High 0.0-0.5 [facility] Comment on above: Order Comment: Speci men Type: URINE SPECIMEN Ordering Facility: [facility] Address: [address] [place] [address] Performed By: #### L [id number] #### [facility] IA [id number] [address] [place] [address] [place] Aconitate/Creatinine (U) [Molar ratio] 14.8 umol/mmolCr Normal 8.5-109.6 [facility] Comment on above: Order Comment: Speci men Type: URINE SPECIMEN Ordering Facility: [facility] Address: [address] [place] [address] Performed By: #### L [id number] #### [facility] CLIA [id number] [address] [place] [address] Adipate/Creatinine (U) [Molar ratio] 3.0 umol/mmolCr Normal 0.3-9.2 [facility] Comment on above: Order Comment: Speci men Type: URINE SPECIMEN Ordering Facility: [facility] Address: [address] [place] [address] Performed By: #### L [id number] #### [facility] CLIA [id number] [address] [place] [address] OF [facility] Alpha hydroxybutyrate/Crea tinine (U) [Molar ratio] <1.0 Normal 0.0-2.7 [facility] Comment on above: Order Comment: Speci men Type: URINE SPECIMEN Ordering Facility: [facility] Address: [address] [place], [place] [address] Performed By: #### L [id number] #### [facility] CLIA [id number] [address] [place] [address] OF [place] Alpha ketoglutarate/Creati nine (U) [Molar ratio] 4.9 umol/mmolCr Normal 0.2-42.7 [facility] Comment on above: Order Comment: Speci men Type: URINE SPECIMEN Ordering Facility: [facility] Address: [address] [place], [place] [address] Performed By: #### L [id number] #### [facility] CLIA [id number] [address] [place] [address] [place] Benzoate/Creatinine (U) [Molar ratio] <12.2 Normal 0.0-14.6 [facility] Comment on above: Order Comment: Speci men Type: URINE SPECIMEN Ordering Facility: [facility] Address: [address] Performed By: #### L [id number] #### [facility] CLIA [id number] [address] [place] [address] [place] Beta hydroxybutyrate/Crea tinine (U) [Molar ratio] <1.6 Normal 0.1-2.6 [facility] Comment on above: Order Comment: Speci men Type: URINE SPECIMEN Ordering Facility: [facility] Address: [address] Performed By: #### L [id number] #### [facility] CLIA [id number] [address] [place] [address] [place] Butyrylglycine/Creat inine (U) [Molar ratio] 0.0 umol/mmolCr Normal 0.0-0.7 [facility] Comment on above: Order Comment: Speci men Type: URINE SPECIMEN Ordering Facility: [facility] Address: [address] Performed By: #### L [id number] #### [facility] CLIA [id number] [address] [place] [address] [place] Creatinine (U) [Mass/Vol] 53.5 mg/dL Normal 42.2-237.9 [facility] Comment on above: Order Comment: Speci men Type: URINE SPECIMEN Ordering Facility: [facility] Address: [address] Performed By: #### L [id number] #### [facility] CLIA [id number] [address] [place] [address] [place] Ethylmalonate/Creati nine (U) [Molar ratio] 1.2 umol/mmolCr Normal 0.5-6.2 [facility] Comment on above: Order Comment: Speci men Type: URINE SPECIMEN Ordering Facility: [facility] Address: [address] Performed By: #### L [id number] #### [facility] IA [id number] [address] [place] [address] Fumarate/Creatinine (U) [Molar ratio] 0.9 umol/mmolCr Normal 0.3-2.6 [facility] Comment on above: Order Comment: Speci men Type: URINE SPECIMEN Ordering Facility: [facility] Address: [address] Performed By: #### L [id number] #### [facility] [place] [id number] [address] [place] [address] OF [place] Glutarate/Creatinine (U) [Molar ratio] 0.1 umol/mmolCr Normal 0.0-1.4 [facility] Comment on above: Order Comment: Speci men Type: URINE SPECIMEN Ordering Facility: [facility] Address: [address] Performed By: #### L [id number] #### [facility] IA [id number] [address] [place] [address] Hexanoylglycine/Crea tinine (U) [Molar ratio] 0.1 umol/mmolCr Normal 0.0-0.1 [facility] Comment on above: Order Comment: Speci men Type: URINE SPECIMEN Ordering Facility: [facility] Address: [address] [place] [address] Performed By: #### L [id number] #### [facility] IA [id number] [address] [place] [address] OF [place] Isobutyrylglycine/Cr eatinine (U) [Molar ratio] 0.6 umol/mmolCr Normal 0.0-1.2 [facility] Comment on above: Order Comment: Speci men Type: URINE SPECIMEN Ordering Facility: [facility] Address: [address] Performed By: #### L [id number] #### [facility] CLIA [id number] [address] OF [place] Isocitrate/Creatinin e (U) [Molar ratio] 48.3 umol/mmolCr Normal 9.1-271.9 [facility] Comment on above: Order Comment: Speci men Type: URINE SPECIMEN Ordering Facility: [facility] Address: [address] [place] [address] Performed By: #### L [id number] #### [facility] CLIA [id number] [address] [place] Lactate/Creatinine (U) [Molar ratio] 9.8 umol/mmolCr Normal 2.9-47.2 [facility] Comment on above: Order Comment: Speci men Type: URINE SPECIMEN Ordering Facility: [facility] Address: [address] [place] [address] Performed By: #### L [id number] #### [facility] CLIA [id number] [address] [place] [address] [place] Malate/Creatinine (U) [Molar ratio] 0.3 umol/mmolCr Normal 0.0-1.1 [facility] Comment on above: Order Comment: Speci men Type: URINE SPECIMEN Ordering Facility: [facility] Address: [address] [place], [place] Performed By: #### L [id number] #### [facility] CLIA [id number] [address] [place] Malonate/Creatinine (U) [Molar ratio] 0.0 umol/mmolCr Normal 0.0-0.1 [facility] Comment on above: Order Comment: Speci men Type: URINE SPECIMEN Ordering Facility: [facility] Address: [address] [place], [place] Performed By: #### L [id number] #### [facility] CLIA [id number] [address] [place] [address] [place] Methylmalonate/Creat inine (U) [Molar ratio] <0.4 Normal 0.0-0.6 [facility] Comment on above: Order Comment: Speci men Type: URINE SPECIMEN Ordering Facility: [facility] Address: [address] [place] [address] Performed By: #### L [id number] #### [facility] CLIA [id number] [address] [place] [address] [place] Methylsuccinate/Crea tinine (U) [Molar ratio] 0.2 umol/mmolCr Normal 0.0-1.4 [facility] Comment on above: Order Comment: Speci men Type: URINE SPECIMEN Ordering Facility: [facility] Address: [address] [place], [place] [address] Performed By: #### L [id number] #### [facility] CLIA [id number] [address] [place] [address] [place] N-acetylaspartate/Cr eatinine (U) [Molar ratio] 1.6 umol/mmolCr Normal 0.1-8.9 [facility] Comment on above: Order Comment: Speci men Type: URINE SPECIMEN Ordering Facility: [facility] Address: [address] [place], [place] [address] Performed By: #### L [id number] #### [facility] CLIA [id number] [address] [place] [address] [place] N-acetyltyrosine/Cre atinine (U) [Molar ratio] <0.2 Normal 0.0-1.2 [facility] Comment on above: Order Comment: Speci men Type: URINE SPECIMEN Ordering Facility: [facility] Address: [address] [place], [place] [address] Performed By: #### L [id number] #### [facility] CLIA [id number] [address] [place] [address] [place] Oxalate/Creatinine (U) [Molar ratio] <1.0 Normal 0.7-12.4 [facility] Comment on above: Order Comment: Speci men Type: URINE SPECIMEN Ordering Facility: [facility] Address: [address] Performed By: #### L [id number] #### [facility] CLIA [id number] [address] [place] [address] [place] Pyruvate/Creatinine (U) [Molar ratio] <0.2 Normal 0.1-2.6 [facility] Comment on above: Order Comment: Speci men Type: URINE SPECIMEN Ordering Facility: [facility] Address: [address] [place] [address] Performed By: #### L [id number] #### [facility] CLIA [id number] [address] [place] [address] [place] Sebacate (C8)/Creatinine (U) [Molar ratio] 0.0 umol/mmolCr Normal [facility] Comment on above: Order Comment: Speci men Type: URINE SPECIMEN Ordering Facility: [facility] Address: [address] Performed By: #### L [id number] #### [facility] CLIA [id number] [address] [place] [address] [place] Suberate/Creatinine (U) [Molar ratio] 2.5 umol/mmolCr Normal 0.0-7.4 [facility] Comment on above: Order Comment: Speci men Type: URINE SPECIMEN Ordering Facility: [facility] Address: [address] Performed By: #### L [id number] #### [facility] CLIA [id number] [address] [place] [address] [place] Suberylglycine/Creat inine (U) [Molar ratio] 0.0 umol/mmolCr Normal <=0.0 [facility] Comment on above: Order Comment: Speci men Type: URINE SPECIMEN Ordering Facility: [facility] Address: [address] [place] [address] Performed By: #### L [id number] #### [facility] CLIA [id number] [address] [place] [address] Succinate/Creatinine (U) [Molar ratio] 1.8 umol/mmolCr Normal 0.3-27.4 [facility] Comment on above: Order Comment: Speci men Type: URINE SPECIMEN Ordering Facility: [facility] Address: [address] [place] [address] Performed By: #### L [id number] #### [facility] CLIA [id number] [address] [place] [address] Succinylacetone/Crea tinine (U) [Molar ratio] <0.4 Normal <0.4 [facility] Comment on above: Order Comment: Speci men Type: URINE SPECIMEN Ordering Facility: [facility] Address: [address] [place] [address] Performed By: #### L [id number] #### [facility] CLIA [id number] [address] [place] [address] [place] UOA CONSULTATION Normal [facility] Comment on above: Order Comment: Speci men Type: URINE SPECIMEN Ordering Facility: [facility] Address: [address] [place] [address] Result Comment: This urine organic acid analysis [...] and its performance characteristics determined by the [facility]. It has not been cleared or approved by the US Food and Drug Administration. The FDA had determined that such clearance or approval is not necessary. Performed By: #### L [id number] #### [facility] CLIA [id number] [address] [place] [address] [place] UOA REVIEW Reviewed by Patrick Proctor MD, Ph.D ([id number]) Normal [facility] Comment on above: Order Comment: Speci men Type: URINE SPECIMEN Ordering Facility: [facility] Address: [address] [place] [address] Performed By: #### L [id number] #### [facility] CLIA [id number] [address] [place] [address] [place] Uracil/Creatinine (U) [Molar ratio] 0.9 umol/mmolCr Normal 0.0-5.1 [facility] Comment on above: Order Comment: Speci men Type: URINE SPECIMEN Ordering Facility: [facility] Address: [address] [place] [address] Performed By: #### L [id number] #### [facility] CLIA [id number] [address] [place] [address] OF [place] PYRUVATE+LACTATE BLon 2022 Lactate [Moles/Vol] 1.2 mmol/L Normal 0.5-2.2 [facility] Comment on above: Order Comment: Speci men Type: BLOOD SPECIMEN Ordering Facility: [facility] Address: [address] [place] [address] Result Comment: This test was developed and its performance characteristics determined by [facility]'s Fuad JRajesh [facility] [place] ([facility]). It has not been cleared or approved by the FDA. [facility] is regulated under CLIA as qualified to perform high-complexity testing. This test is used for clinical purposes. It should not be regarded as investigational or for research. Performed By: #### L ACPYR #### [facility] CLIA [id number] [address] [place] [address] [place] Pyruvate (Bld) [Moles/Vol] 0.04 mmol/L Normal 0.03-0.10 [facility] Comment on above: Order Comment: Rl basilio Type: BLOOD SPECIMEN Ordering Facility: [facility] Address: [address] [place] [id number] Result Comment: This test was developed and its performance characteristics determined by [facility]'s [facility] [place] ([facility]). It has not been cleared or approved by the FDA. -[facility] is regulated under CLIA as qualified to perform high-complexity testing. This test is used for clinical purposes. It should not be regarded as investigational or for research. Performed By: #### L ACPYR #### [facility] CLIA [id number] [address] [place] [address] [place] T4 Free SerPl-mCncon 023 Free T4 [Mass/Vol] 1.3 ng/dL Normal 0.9-1.7 [facility] Comment on above: Order Comment: Rl basilio Type: BLOOD SPECIMEN Ordering Facility: [facility] Address: [address] [place] [address] Performed By: #### 3 016-3, 1987-, 2156-09 #### [facility] CLIA [id number] [address] [facility] [place] [address] [place] TSH SerPl-aCncon 10-17-2022 TSH Qn 2.050 m[IU]/L Normal 0.270-4.200 [facility] Comment on above: Order Comment: Rl basilio Type: BLOOD SPECIMEN Ordering Facility: [facility] Address: [address] [place] [id number] Result Comment: If t he patient is , TSH reference range varies by gestational period: First Trimester (weeks 9-12): 0.180-2.990 mIU/L Second Trimester: 0.110-3.980 mIU/L Third Trimester: 0.480-4.710 mIU/L Olman Rodriguez et al. A Practical Approach for the Verifications and Determination of Site- and Trimester-Specific Reference Intervals for Thyroid Function tests in . Thyroid, 2019:29:3:412-420. Reji E, et al. 2017 Guidelines of the [place] Thyroid [employer] for the Diagnosis and Management of Thyroid Disease during and the . Thyroid, 2017:27:3:315-389. Performed By: #### 3 016-3, 1987-08, 2156-09 #### [facility] CLIA [id number] [address] [place] [address] [place] VOLTAGE GATED CA IGGon 10-17 P/Q-TYPE CALCIUM CHANNEL ANTIBODY 10.1 pmol/L Normal 0.0-24.5 [facility] Comment on above: Order Comment: Specmaribel basilio Type: BLOOD SPECIMEN Ordering Facility: [facility] Address: [address] [place] [address] Result Comment: INTE RPRETIVE INFORMATION: P/Q-Type Calcium Channel Antibody 0.0 to 24.5 pmol/L ............. Negative 24.6 to 45.6 pmol/L ............ Indeterminate 45.7 pmol/L or greater.......... Positive This test was developed and its performance characteristics determined by [facility]. It has not been cleared or approved by the US Food and Drug Administration. This test was performed in a CLIA certified laboratory and is intended for clinical purposes. Performed By: [facility] [address] [place] [id number] Database Coordinator: Terry Jacome MD, PhD Performed By: #### 3 016-3, 1987-08, 2156-09 #### [facility] CLIA [id number] [address] [place] [address] [place] VOLTAGE-GATED POTASSIUM VARGAS ABon 10-17-2022 VOLTAGE-GATED POTASSIUM CHANNEL AB, SER 0 pmol/L Normal 0-31 [facility] Comment on above: Order Comment: Specmaribel basilio Type: BLOOD SPECIMEN Ordering Facility: [facility] Address: [address] [place] [address] Result Comment: INTE RPRETIVE INFORMATION: Voltage-Gated Potassium [...] developed and its performance characteristics determined by [facility]. It has not been cleared or approved by the US Food and Drug Administration. This test was performed in a CLIA certified laboratory and is intended for clinical purposes. Performed By: [facility] [address] [place] [address] Database Coordinator: Terry Jacome MD, PhD Performed By: #### 3 016-3, 1987-, 21576 #### [facility] CLIA [id number] [address] [facility] [address] [place] NM GASTRIC EMPTYING SOLIDon 09-12-2022 NM GASTRIC EMPTYING SOLID * * *Final Report* * * DATE OF EXAM: Sep 12 2022 2:44PM [facility] 0017 - NM GASTRIC EMPTYING SOLID [...] 4 HOURS IS CONSISTENT WITH SEVERE GASTROPARESIS. Ell T[facility] Transcribe Date/Time: Sep 12 2022 3:02P Dictated by : LUZ MARINA VÁZQUEZ MD This examination was interpreted and the report reviewed and electronically signed by: LUZ MARINA VÁZQUEZ MD on Sep 12 2022 3:05PM EST [id number] [facility] 09-09-2022 CNPN Telephone (AVXRMO) BELGICA HARPER ([id number]) 1990 F Date Time Provider Department 09/09/22 [...] Status:Closed by DIEGO RICKS on 09/09/22 Normal [facility] CITRATE URINE 24HRon 03-2 023 Citric Acid, U, 24hr 472 mg/24 hr Normal 320-1240 Th e [facility] Comment on above: Result Comment: This test was developed and its performance characteristics determined by [facility]. It has not been cleared or approved by the Food and Drug Administration. Performed By: #### A [facility] #### [facility] [address] [place] [address] [address] Li Nagel Citric Acid, Urine 472 mg/L Normal Undefined The [facility] Comment on above: Performed By: #### A LPHPHN #### [facility] [address] [place], [place] [address] Dr. Li Nagel OXALATE 24HR URINEon 07-11-2 023 Oxalates, Urine 19 mg/L Normal Undefined The [facility] Comment on above: Performed By: #### O X24HR #### [facility] [address] [id number] Li Nagel Oxalates, Urine 24hr 19 mg/24 hr Normal 4-31 [facility] Comment on above: Performed By: #### O X24HR #### [facility] [address] [place] [address] Dr. Li Nagel MAGNESIUM 24HR URINEon 07-09 Magnesium 24hr Urine 45.0 mg/24 hr Normal 12.0-293.0 T [facility] Comment on above: Performed By: #### I MMUN G #### [facility] [address] [place] [address] Dr. Li Nagel Magnesium UR 4.5 mg/dL Normal Not Estab. The [facility] Comment on above: Performed By: #### I MMUN G #### [facility] [address] [place] [address] Dr. Li Nagel PHOSPHORUS 24HR URINEon 06-22 Phosphorus, Urine 51.4 mg/dL Normal Not Estab. The [facility] Comment on above: Performed By: #### P HOS 24 #### [facility] [address] [place] [address] Dr. Li Nagel Phosphorus, Urine 24hr 514 mg/24 hr Normal 261-1078 [facility] Comment on above: Performed By: #### P HOS 24 #### [facility] [address] [place] [address] [address] Li Nagel URIC ACID 24 HR URINEon 06-22 Uric Acid, Urine 64.0 mg/dL Normal Not Estab. The [facility] Comment on above: Performed By: #### A LPHPHN #### [facility] [address] [place] [address] Dr. Li Nagel Uric Acid, Urine 24hr 640.0 mg/24 hr Normal 173.7-902.1 [facility] Comment on above: Performed By: #### A LPHPHN #### [facility] [address] [place] [address] Dr. Li Nagel CALCIUM 24 HR URINEon 2022 CALC, 24 HR UR 155.0 mg/24 hr Normal 100.0-300.0 [facility] Comment on above: Performed By: #### I MMUN G #### [facility] [address] [place] [address] Dr. Li Nagel UR CALCIUM 15.5 mg/dL Normal 5.1-21.0 [facility] Comment on above: Performed By: #### I MMUN G #### [facility] [address] [place] [address] Dr. Li Nagel UR TOT VOL 1000 ml/24 HR Normal [facility] Comment on above: Performed By: #### I MMUN G #### [facility] [address] [place] [address] Dr. Li Nagel Performed By: #### A LPHPHN #### [facility] [address] [place] [address] Dr. Li Nagel CREA 24 HR URINEon CREA, 24 HR UR 1891.80 mg/24 hr Critically high 800.00 -1,800. 00 [facility] Comment on above: Performed By: #### A LPHPHN #### [facility] [address] [place] [address] Dr. Li Nagel URINE CREAT 189.18 mg/dL Normal 20.00-300.[address] [facility] Comment on above: Performed By: #### A LPHPHN #### [facility] [address] [place] [address] Dr. Li Nagel PTH INTACTon 07-08-2022 PTH, Intact 41 pg/mL Normal 15-65 [facility] Comment on above: Performed By: #### H EPACUT #### [facility] [address] [place] [address] Dr. Li Nagel SODIUM 24 HR URINEon 07-08-2 023 NA, 24 HR UR 149 mmol/24 hr Normal 40-220 [facility] Comment on above: Performed By: #### A LPHPHN #### [facility] [address] [place] [address] Dr. Li Nagel Sodium (U) [Moles/Vol] 149 mmol/L Critically high 30-90 [facility] Comment on above: Performed By: #### A LPHPHN #### [facility] [address] [place] [address] Dr. Li Nagel BUNon 07-06-2022 Urea nitrogen [Mass/Vol] 11.0 mg/dL Normal 7.0-18.0 [facility] Comment on above: Performed By: #### B UN, URIC, CA, K, NA, CL, CO2, CREA #### [facility] [address] [place] [address] Dr. Li Nagel CALCIUMon 07-06-2022 Calcium [Mass/Vol] 9.0 mg/dL Normal 8.5-10.1 [facility] Comment on above: Performed By: #### B UN, URIC, CA, K, NA, CL, CO2, CREA #### [facility] [address] [place] [address] Dr. Li Nagel CHLORIDEon 07-06-2022 Chloride [Moles/Vol] 107 mmol/L Normal 98-107 [facility] Comment on above: Performed By: #### I MMUN G #### [facility] [address] [place] [address] Dr. Li Nagel CO2on 07-06-2022 CO2 [Moles/Vol] 29.2 mmol/L Normal 21.0-32.0 [facility] Comment on above: Performed By: #### I MMUN G #### [facility] [address] [place] [address] Dr. Li Nagel CREATININEon 07-06-2022 Creatinine [Mass/Vol] 0.97 mg/dL Normal 0.55-1.02 [facility] Comment on above: Performed By: #### B UN, URIC, CA, K, NA, CL, CO2, CREA #### [facility] [address] [place] [address] Dr. Li Nagel EGFR-AF PUERTO RICAN >60 Normal >=60 [facility] Comment on above: Performed By: #### B UN, URIC, CA, K, NA, CL, CO2, CREA #### [facility] [address] [place] [address] Dr. Li Nagel EGFR-NON AF PUERTO RICAN >60 Normal >=60 [facility] Comment on above: Performed By: #### B UN, URIC, CA, K, NA, CL, CO2, CREA #### [facility] [address] [place] [address] Dr. Li Nagel NAon 07-06-2022 Sodium [Moles/Vol] 143 mmol/L Normal 136-145 [facility] Comment on above: Performed By: #### I MMUN G #### [facility] [address] [place] [address] Dr. Li Nagel POTASSIUMon 07-06-2022 Potassium [Moles/Vol] 3.6 mmol/L Normal 3.5-5.1 [facility] Comment on above: Performed By: #### I MMUN G #### [facility] [address] [place] [address] Dr. Li Nagel URIC ACID SERUMon 07-06-2022 Urate [Mass/Vol] 4.7 mg/dL Normal 2.6-6.0 [facility] Comment on above: Performed By: #### B UN, URIC, CA, K, NA, CL, CO2, CREA #### [facility] [address] [place] [address] Dr. Li Nagel XR KUB 1 VIEWon [...] by: JACKSON ADKINS Date: 2022-06-30 07:02 Normal [facility] US ABD RIGHT UPPER QUADRANTo n [...] nephrocalcinosis and a few right renal stones. Ell Tutor: [facility] Transcribe Date/Time: Jun 16 2022 7:46A Dictated by : MINERVA LIM MD This examination was interpreted and the report reviewed and electronically signed by: MINERVA LIM MD on Jun 16 2022 7:48AM EST [id number] Normal [facility] US ABD RT UPPER QUADRANTon 0 06-15-[address] [facility] [address] ABD/PEL WO IVCONon 2022 Radiology Result ACTIONABLE Abnormal [facility] No Panel Informationon 05-27 [facility] XR CHEST 2V FRONTAL/LATon XR CHEST [...] tissues: Unremarkable. IMPRESSION: No acute radiographic abnormality. Ell Tutor: [facility] Transcribe Date/Time: May 27 2022 12:39P Dictated by : MARCELA STILL MD This examination was interpreted and the report reviewed and electronically signed by: MARCELA STILL MD on May 27 2022 12:39PM EST [id number] Normal [facility] [id number] PHENOTYP [facility] 05-11-2022 Bkuzs-0-Hifgxdcbcuz, Serum 130 mg/dL Normal 100-188 [facility] Comment on above: Result Comment: Perf ormed at: CB Performed By: #### A LPHPHN #### [facility] [address] [place] [address] Dr. Li Nagel Phenotype (PI) MM Normal The [facility] Comment on above: Result Comment: Phen otype [...] phenotype. Performed at: Performed By: #### A [facility] #### [facility] [address] [place], [place] [address] Dr. Li Nagel HEREDITARY HEMOCHROMATOSIS, DNA ANALYSISon 05-11-2022 Hereditary Hemochromatosis Comment Normal [facility] Comment on above: Result Comment: Resu lt: c.845G>A (p.Csd240Zzz) - Not Detected c.187C>G (p.Wjp80Byj) - Not Detected c.193A>T (p.Ffa35Ckz) - Not Detected Not associated with increased [...] for patients who are homozygous for c.845G>A (p.Mrv803Cqh) and have yet to experience clinical symptoms. . Comments: The most common HFE variants associated with hereditary hemochromatosis are c.845G>A (p.Ojg622Pqm), c.187C>G (p.Adz37Xua), c.193A>T (p.Ppu56Leg). While patients homozygous for c.845G>A (p.Zrz691Fhl) are the most likely to present clinical symptoms, less than 10% develop clinically significant iron overload with tissue and organ damage. . Genetic counseling is recommended to discuss the potential clinical implications of positive results, as well as recommendations for testing family members. Genetic Coordinators are available for health care providers to discuss results at [phone]). . Test Details: Three variants analyzed: c.845G>A (p.Zwb760Jol), commonly referred to as C282Y c.187C>G (p.Fdh49Qsz), commonly referred to as H63D c.193A>T (p.Jde50Rht), commonly referred to as S65C . Methods/Limitations: [...] developed and its performance characteristics determined by [employer]. It has not been cleared or approved by the Food and Drug Administration. . References: Brodie BR, Yoav PC, Deborah KV, Raymond LW, Ramsey ; [place] [employer] for the [employer] Liver Diseases. Diagnosis and management of hemochromatosis: 2011 practice guideline by the [place] [employer] for the [employer] Liver Diseases. Hepatology. 2010;54(1):328-43. doi: 10.1002/hep.59098. PMID: 19960897; PMCID: TKW7577211. Cora G, Olegario P, Fabio DW, Tabatha H, Love O, Zev S, Vazquez I, Kofi M, Sunitha S. [facility] best practice guidelines for the molecular genetic diagnosis of hereditary hemochromatosis (HH). Eur J Hum Margaret. 2016 Jul;24(4):479-95. doi: 10.1038/ejhg.2015.128. Epub 2014Oct 29. PMID: 00424036; PMCID: [id number]. . Kenay Hager, PhD, FACMG Dm Reyna, PhD Alexandro Rodriguez, PhD, [employer]MG Jhony Hammond, PhD, [employer] Oumar Avila, PhD, [employer] Rob Brand, PhD, [employer]ACMG Pascale Gracia, PhD, FACMG Lala Marvin, PhD, FACMG Performed By: #### H [facility] #### [facility] [address] [place] [address] Dr. Li Nagel DENY by IFAon 05-06-2022 Antinuclear Antibodies, IFA Negative Normal [facility] Comment on above: Result Comment: Nega tive <1:80 Borderline 1:80 Positive >1:80 ICAP nomenclature: AC-0 For more information about Hep-2 cell patterns use ANApatterns.org, the official website for the International Consensus on Antinuclear Antibody (DENY) Patterns (ICAP). Performed By: #### A LPHPHN #### [facility] [address] [place] [address] Dr. Li Nagel CERULOPLASMINon 05-05-2022 Ceruloplasmin 27.9 mg/dL Normal 19.0-39.0 [facility] Comment on above: Performed By: #### H EPACUT #### [facility] [address] [place] [address] Dr. Li Nagel HEPATITIS A AB IGMon 023 Hep A Ab, IgM Negative Normal Negative [facility] Comment on above: Performed By: #### I MMUN G #### [facility] [address] [place] [address] Dr. Li Nagel IMMUNOGLOBULIN G INDEX SERUM OR CSFon 05-05-2022 Albumin [Mass/Vol] 4.8 g/dL Normal 3.8-4.8 [facility] Comment on above: Performed By: #### I MMUN G #### [facility] [address] [place] [address] Dr. Li Nagel Albumin, CSF NSPINL Normal [facility] Comment on above: Result Comment: Test not performed. No spinal fluid received. contacted Radha at your facility on 05-05-2022 Performed By: #### I MMUN G #### [facility] [address] [place] [address] Dr. Li Nagel CSF IgG Index UPTCAL Normal [facility] Comment on above: Result Comment: Unab le to calculate result since non-numeric result obtained for component test. Performed By: #### I MMUN G #### [facility] [address] [place] [address] Dr. Li Nagel IgG, Quant, CSF NSPINL Normal [facility] Comment on above: Result Comment: Test not performed. No spinal fluid received. contacted Radha at your facility on 05-05-2022 Performed By: #### I MMUN G #### [facility] [address] [place] [address] Dr. Li Nagel IgG/Alb Ratio, CSF UPTCAL Normal [facility] Comment on above: Result Comment: Unab le to calculate result since non-numeric result obtained for component test. Performed By: #### I MMUN G #### [facility] [address] [address] [address] Li Nagel Immunoglobulin G, Qn, Serum 971 mg/dL Normal 586-1602 [facility] Comment on above: Performed By: #### I MMUN G #### [facility] [address] [place] [address] Dr. Li Nagel LIVER-KIDNEY MICROSOMAL (LKM ) ABon 05-05-2022 Liver-Kidney Microsomal Ab 1.3 Units Normal 0.0-20.0 [facility] Comment on above: Result Comment: Nega tive 0.0 - 20.0 Equivocal 20.1 - 24.9 Positive >24.9 . LKM type 1 antibodies are detected in patients with autoimmune hepatitis type 2 and in up to 8% of patients with chronic HCV infection. Performed By: #### H EPACUT #### [facility] [address] [place] [address] Dr. Li Nagel MITICHONDRIAL (M2) ANTIBODYo n 05-05-2022 Mitochondrial (M2) Antibody <20.0 Normal 0.0-20.0 [facility] Comment on above: Result Comment: Nega tive 0.0 - 20.0 Equivocal 20.1 - 24.9 Positive >24.9 . Mitochondrial (M2) Antibodies are found in 90-96% of patients with primary biliary cirrhosis. Performed By: #### A LPHPHN #### [facility] [address] [address] [address] Li Nagel SMOOTH MUSCLE ANTIBODYon Actin (Smooth Muscle) Antibody 9 Units Normal 0-19 [facility] Comment on above: Result Comment: Nega tive 0 - 19 Weak positive 20 - 30 Moderate to strong positive >30 . Actin Antibodies are found in 52-85% of patients with autoimmune hepatitis or chronic active hepatitis and in 22% of patients with primary biliary cirrhosis. Performed By: #### A LPHPHN #### [facility] [address] [address] [address] Li Nagel FERRITINon 05-03-2022 Ferritin [Mass/Vol] 319.0 ng/mL Critically high 6.2-137.0 [facility] Comment on above: Performed By: #### A LPHPHN #### [facility] [address] [address] [address] Li Nagel PAP ACOG PANEL 2: 30 to 65on 04-28-2022 . . Normal [facility] Comment on above: Result Comment: Perf ormed at: BA Performed By: #### I MMUN G #### [facility] [address] [address] [address] Li Nagel Age Gdln ACOG Testing - Normal [facility] Comment on above: Performed By: #### I MMUN G #### [facility] [address] [address] [address] Li Nagel DIAGNOSIS: Comment Normal [facility] Comment on above: Result Comment: NEGA TIVE FOR INTRAEPITHELIAL LESION OR MALIGNANCY. Performed at: BA Performed By: #### I MMUN G #### [facility] [address] [address] [address] Li Nagel HPV Aptima Negative Normal Negative [facility] Comment on above: Result Comment: This nucleic acid amplification test detects fourteen high-risk HPV types (16,18,31,33,35,39,45,51,52,56,58,59,66,68) without differentiation. Performed at: =G Performed By: #### I MMUN G #### [facility] [address] [address] [address] Li Nagel HPV Genotype Reflex Comment Normal [facility] Comment on above: Result Comment: Crit eria not met, HPV Genotype not performed. Performed at: BA Performed By: #### I MMUN G #### [facility] [address] [place] [address] Dr. Li Nagel Methodology: Comment Normal [facility] Comment on above: Result Comment: This liquid based ThinPrep(R) pap test was screened with the use of an image guided system. Performed at: WB Performed By: #### I MMUN G #### [facility] [address] [place] [address] Dr. Li Nagel Note: Comment Normal [facility] Comment on above: Result Comment: The [...] Performed By: #### I MMUN G #### [facility] [address] [place] [address] Dr. Li Nagel Performed by: Comment Normal [facility] Comment on above: Result Comment: [employer] (ASCP) Performed at: BA Performed By: #### I MMUN G #### [facility] [address] [place] [address] Dr. Li Nagel Specimen adequacy: Comment Normal [facility] Comment on above: Result Comment: Sati sfactory for evaluation. No endocervical component is identified. Performed at: BA Performed By: #### I MMUN G #### [facility] [address] [place] [address] Dr. Li Nagel HEPATITIS PANEL, ACUTEon HBsAg Screen Negative Normal Negative [facility] Comment on above: Performed By: #### H EPACUT #### [facility] [address] [place] [address] Dr. Li Nagel HCV AB <0.1 Normal 0.0-0.9 [facility] Comment on above: Performed By: #### H EPACUT #### [facility] [address] [place] [address] Dr. Li Nagel Hep A Ab, IgM Negative Normal Negative [facility] Comment on above: Performed By: #### H EPACUT #### [facility] [address] [place], [place] [address] Dr. Li Nagel Hep B Core Ab, IgM Negative Normal Negative [facility] Comment on above: Performed By: #### H EPACUT #### [facility] [address] [place], [place] [address] Dr. Li Nagel Interpretation: Comment Normal [facility] Comment on above: Result Comment: Nega tive Not infected with HCV, unless recent infection is suspected or other evidence exists to indicate HCV infection. Performed By: #### H EPACUT #### [facility] [address] [place], [place] [address] Dr. Li Nagel US PELVIS AND TRANSVAGon [...] LAURIE CRUZ Date: 2021-12-22 09:50 Normal [facility] US ABD RT UPPER QUADRANTon 0 12-10-2021 [facility] US PELVIS AND TRANSVAGon US PELVIS [...] LAURIE CRUZ Date: 2021-10-28 13:01 Normal [facility] VAGINITIS/VAGINOSIS DNA PROB Kwasi 10-21-2021 Sarah species Negative Normal Negative [facility] Comment on above: Performed By: #### I MMUN G #### [facility] [address] [place] [address] Dr. Li Nagel Gardnerella vaginalis Negative Normal Negative [facility] Comment on above: Performed By: #### I MMUN G #### [facility] [address] [place] [address] Dr. Li Nagel Trichomonas vaginalis Negative Normal Negative [facility] Comment on above: Performed By: #### I MMUN G #### [facility] [address] [place] [address] Dr. Li Nagel CBC AUTO DIFFon 10-20-2021 BASO # 0.0 103/ul Normal 0.0-0.1 [facility] Comment on above: Performed By: #### A LPHPHN #### [facility] [address] [place] [address] Dr. Li Nagel Basophils/100 WBC (Bld) 0.4 % Normal 0.2-2.0 [facility] Comment on above: Performed By: #### A LPHPHN #### [facility] [address] [place] [address] Dr. Li Nagel EO # 0.2 103/ul Normal 0.0-0.7 [facility] Comment on above: Performed By: #### A LPHPHN #### [facility] [address] [place] [address] Dr. Li Nagel Eosinophils/100 WBC (Bld) 2.6 % Normal 0.9-7.0 [facility] Comment on above: Performed By: #### A LPHPHN #### [facility] [address] [place] [address] Dr. Li Nagel Erythrocyte distribution width (RBC) [Ratio] 12.6 % Normal 11.0-15.0 [facility] Comment on above: Performed By: #### A LPHPHN #### [facility] [address] [place] [address] Dr. Li Nagel Hematocrit (Bld) [Volume fraction] 40.0 % Normal 36.0-48.0 [facility] Comment on above: Performed By: #### A LPHPHN #### [facility] [address] [place] [address] Dr. Li Nagel Hemoglobin (Bld) [Mass/Vol] 13.3 g/dL Normal 12.0-16.0 [facility] Comment on above: Performed By: #### A LPHPHN #### [facility] [address] [place] [address] Dr. Li Nagel IG # 0.06 10e3/ul Critically high 0.00-0.03 [facility] Comment on above: Performed By: #### A LPHPHN #### [facility] [address] [place] [address] Dr. Li Nagel IG % 0.9 % Critically high 0.0-0.[address] [facility] Comment on above: Performed By: #### A LPHPHN #### [facility] [address] [place] [address] Dr. Li Nagel LYMPH # 2.2 103/ul Normal 1.2-3.8 [facility] Comment on above: Performed By: #### A LPHPHN #### [facility] [address] [place] [address] Dr. Li Nagel Lymphocytes/100 WBC (Bld) 31.0 % Normal 20.5-60.0 [facility] Comment on above: Performed By: #### A LPHPHN #### [facility] [address] [place] [address] Dr. Li Nagel MANUAL DIFF REQ NO Normal [facility] Comment on above: Performed By: #### A LPHPHN #### [facility] [address] [place] [address] Dr. Li Nagel MCH (RBC) [Entitic mass] 31.4 pg Normal 26.7-34.0 [facility] Comment on above: Performed By: #### A LPHPHN #### [facility] [address] [place] [address] Dr. Li Nagel MCHC (RBC) [Mass/Vol] 33.3 g/dL Normal 29.9-35.2 [facility] Comment on above: Performed By: #### A LPHPHN #### [facility] [address] [place] [address] Dr. Li Nagel MCV (RBC) [Entitic vol] 94.3 fL Normal 81.0-99.0 [facility] Comment on above: Performed By: #### A LPHPHN #### [facility] [address] [place] [address] Dr. Li Nagel MONO # 0.5 103/ul Normal 0.3-0.8 [facility] Comment on above: Performed By: #### A LPHPHN #### [facility] [address] [place] [address] Dr. Li Nagel Monocytes/100 WBC (Bld) 6.9 % Normal 1.7-12.0 [facility] Comment on above: Performed By: #### A LPHPHN #### [facility] [address] [place] [address] Dr. Li Nagel NEUT # 4.1 103/ul Normal 1.4-6.5 [facility] Comment on above: Performed By: #### A LPHPHN #### [facility] [address] [place] [address] Dr. Li Nagel Neutrophils/100 WBC (Bld) 58.2 % Normal 43.0-75.0 [facility] Comment on above: Performed By: #### A LPHPHN #### [facility] [address] [place] [address] Dr. Li Nagel Platelet mean volume (Bld) [Entitic vol] 11.0 fL Normal 9.5-13.5 [facility] Comment on above: Performed By: #### A LPHPHN #### [facility] [address] [place] [address] Dr. Li Nagel PLT 211 103/ul Normal 150-450 [facility] Comment on above: Performed By: #### A LPHPHN #### [facility] [address] [place] [address] Dr. Li Nagel RBC 4.24 106/ul Normal 4.20-5.40 [facility] Comment on above: Performed By: #### A LPHPHN #### [facility] [address] [place] [address] Dr. Li Nagel WBC 7.0 103/ul Normal 4.0-11.0 [facility] Comment on above: Performed By: #### A LPHPHN #### [facility] [address] [place] [address] ABD/PELV W CONon [...] DOLORES MOON Date: 2021-10-20 14:53 Normal [facility] OCC BLD IMMUNO SCREENon 09-23 OCCULT BLOOD Negative Normal NEGATIVE [facility] Comment on above: Performed By: #### O BSCRN #### [facility] [address] [place] [address] Dr. iL Nagel PROF 14(COMP METB)on 022 Albumin [Mass/Vol] 3.7 g/dL Normal 3.4-5.0 [facility] Comment on above: Performed By: #### A LPHPHN #### [facility] [address] [place] [address] Dr. Li Nagel Albumin/Globulin [Mass ratio] 1.2 {ratio} Normal [facility] Comment on above: Performed By: #### A LPHPHN #### [facility] [address] [place] [address] Dr. Li Nagel ALP [Catalytic activity/Vol] 86 U/L Normal 46-116 [facility] Comment on above: Performed By: #### A LPHPHN #### [facility] [address] [place] [address] Dr. Li Nagel ALT [Catalytic activity/Vol] 109 U/L Critically high 14-59 [facility] Comment on above: Performed By: #### A LPHPHN #### [facility] [address] [place] [address] Dr. Li Nagel Anion gap [Moles/Vol] 7.8 mmol/L Normal [facility] Comment on above: Performed By: #### A LPHPHN #### [facility] [address] [place] [address] Dr. Li Nagel AST [Catalytic activity/Vol] 57 U/L Critically high 15-37 [facility] Comment on above: Performed By: #### A LPHPHN #### [facility] [address] [place] [address] Dr. Li Nagel Bilirubin [Mass/Vol] 0.4 mg/dL Normal 0.2-1.0 [facility] Comment on above: Performed By: #### A LPHPHN #### [facility] [address] [place] [address] Dr. Li Nagel Calcium [Mass/Vol] 8.9 mg/dL Normal 8.5-10.1 [facility] Comment on above: Performed By: #### A LPHPHN #### [facility] [address] [place] [address] Dr. Li Nagel Chloride [Moles/Vol] 104 mmol/L Normal 98-107 [facility] Comment on above: Performed By: #### A LPHPHN #### [facility] [address] [place] [address] Dr. Li Nagel CO2 [Moles/Vol] 27.7 mmol/L Normal 21.0-32.0 [facility] Comment on above: Performed By: #### A LPHPHN #### [facility] [address] [place] [address] Dr. Li Nagel Creatinine [Mass/Vol] 0.78 mg/dL Normal 0.55-1.02 [facility] Comment on above: Performed By: #### A LPHPHN #### [facility] [address] [place] [address] Dr. Li Nagel EGFR-AF PUERTO RICAN >60 Normal >=60 [facility] Comment on above: Performed By: #### A LPHPHN #### [facility] [address] [place] [address] Dr. Li Nagel EGFR-NON AF PUERTO RICAN >60 Normal >=60 [facility] Comment on above: Performed By: #### A LPHPHN #### [facility] [address] [place] [address] Dr. Li Nagel Globulin (S) [Mass/Vol] 3.2 g/dL Normal [facility] Comment on above: Performed By: #### A LPHPHN #### [facility] [address] [place] [address] Dr. Li Nagel Glucose [Mass/Vol] 104 mg/dL Normal 74-106 [facility] Comment on above: Performed By: #### A LPHPHN #### [facility] [address] [place] [address] Dr. Li Nagel Potassium [Moles/Vol] 3.5 mmol/L Normal 3.5-5.1 [facility] Comment on above: Performed By: #### A LPHPHN #### [facility] [address] [place] [address] Dr. Li Nagel Protein [Mass/Vol] 6.9 g/dL Normal 6.4-8.2 [facility] Comment on above: Performed By: #### A LPHPHN #### [facility] [address] [place] [address] Dr. Li Nagel Sodium [Moles/Vol] 136 mmol/L Normal 136-145 [facility] Comment on above: Performed By: #### A LPHPHN #### [facility] [address] [place] [address] Dr. Li Nagel Urea nitrogen [Mass/Vol] 10.0 mg/dL Normal 7.0-18.0 [facility] Comment on above: Performed By: #### A LPHPHN #### [facility] [address] [place] [address] Dr. Li Nagel Urea nitrogen/Creatinine [Mass ratio] 12.8 mg/mg Normal [facility] Comment on above: Performed By: #### A LPHPHN #### [facility] [address] [place] [address] Dr. Li Nagel XR LSPINE MIN 4 [...] by: LAURIE CRUZ Date: 2021-09-06 15:[address] [facility] HEPATOBILIARY SCAN W EFon 08-27-2021 NM HEPATOBILIARY [...] by: JACKSON ADKINS Date: 2021-08-27 16:05 Normal [facility] Comprehensive Metabolic Pane yair 08-20-2021 Albumin [Mass/Vol] 5.0 g/dL Normal 3.6-5.1 [facility] Comment on above: Performed By: #### C MP #### [facility] [address], [place] [id number] Albumin/Globulin [Mass ratio] 2.1 {ratio} Normal 1.0-2.5 [facility] Comment on above: Performed By: #### C MP #### [facility] [address], [place] [id number] ALP [Catalytic activity/Vol] 110 U/L Normal 35-119 [facility] Comment on above: Performed By: #### C MP #### [facility] [address], [place] [id number] ALT [Catalytic activity/Vol] 71 U/L High 6-33 [facility] Comment on above: Result Comment: 12/1 /2021 Female reference range changed. Performed By: #### C MP #### [facility] [address], [place] [id number] Anion gap [Moles/Vol] 17 mmol/L Normal 12-20 [facility] Comment on above: Result Comment: Effe ctive 04/29/2019 reference range changed. Performed By: #### C MP #### [facility] [address], [place] [id number] AST [Catalytic activity/Vol] 69 U/L High 9-34 [facility] Comment on above: Performed By: #### C MP #### [facility] [address], [place] [id number] BUN/CREA 11 Ratio Normal 6-22 [facility] Comment on above: Performed By: #### C MP #### [facility] [address], [place] [id number] Calcium [Mass/Vol] 9.8 mg/dL Normal 8.6-10.2 [facility] Comment on above: Performed By: #### C MP #### [facility] [address], [place] [id number] Chloride [Moles/Vol] 99 mmol/L Normal 98-107 [facility] Comment on above: Performed By: #### C MP #### [facility] [address], [place] [id number] CO2 [Moles/Vol] 25 mmol/L Normal 20-31 [facility] Comment on above: Performed By: #### C MP #### [facility] [address], [place] [id number] Creatinine [Mass/Vol] 0.9 mg/dL Normal 0.6-1.4 [facility] Comment on above: Performed By: #### C MP #### [facility] [address], [place] [id number] eGFRAA 94 mL/min/1.73m2 Normal >60 [facility] Comment on above: Performed By: #### C MP #### [facility] [address], [place] [id number] eGFRNAA 78 mL/min/1.73m2 Normal >[address] [facility] [employer] Comment on above: Performed By: #### C MP #### [facility] [address], [place] [id number] Globulin (S) [Mass/Vol] 2.4 g/dL Normal 1.9-3.7 [facility] Comment on above: Performed By: #### C MP #### [facility] [address], [place] [id number] Glucose [Mass/Vol] 100 mg/dL High 65-99 [facility] [employer] Comment on above: Result Comment: For FASTING Glucose --- ADA reference ranges: Normal 65-99 mg/dl Prediabetes 100-125 Diabetes >/= 126 Performed By: #### C MP #### [facility] [address], [place] [id number] Potassium [Moles/Vol] 3.8 mmol/L Normal 3.5-5.[address] [facility] [employer] Comment on above: Performed By: #### C MP #### [facility] [address], [place] [id number] Protein [Mass/Vol] 7.4 g/dL Normal 6.1-8.1 [facility] [employer] Comment on above: Performed By: #### C MP #### [facility] [address], [place] [id number] Sodium [Moles/Vol] 137 mmol/L Normal 135-146 [facility] [employer] Comment on above: Performed By: #### C MP #### [facility] [address], [place] [id number] TBIL <0.3 Normal [facility] Comment on above: Performed By: #### C MP #### [facility] [address], [place] [id number] Urea nitrogen [Mass/Vol] 10 mg/dL Normal 7-[address] [facility] [employer] Comment on above: Performed By: #### C MP #### [facility] [address], [place] [id number] US SINGLE QUAD RT UPPERon US SINGLE [...] JACKSON ADKINS Date: 2021-08-16 08:19 Normal [facility] Complete Blood Count with Au to Diffon 08-06-2021 Basophils (Bld) [#/Vol] 0.03 10*3/uL Normal 0.00-0.20 [facility] Comment on above: Performed By: #### C MP, CBCAD, LIPD #### [facility] [address], [place] [id number] Basophils/100 WBC (Bld) 0.4 % Normal [facility] Comment on above: Performed By: #### C MP, CBCAD, LIPD #### [facility] [address], [place] [id number] Eosinophils (Bld) [#/Vol] 0.11 10*3/uL Normal 0.02-0.50 [facility] Comment on above: Performed By: #### C MP, CBCAD, LIPD #### [facility] [address], [place] [id number] Eosinophils/100 WBC (Bld) 1.4 % Normal [facility] Comment on above: Performed By: #### C MP, CBCAD, LIPD #### [facility] [address], [place] [id number] Erythrocyte distribution width (RBC) [Ratio] 12.6 % Normal 11.0-15.[address] [facility] [employer] Comment on above: Performed By: #### C MP, CBCAD, LIPD #### [facility] [address], [place] [id number] Hematocrit (Bld) [Volume fraction] 44.2 % Normal 35.0-47.[address] [facility] [employer] Comment on above: Performed By: #### C MP, CBCAD, LIPD #### [facility] [address], [place] [id number] Hemoglobin (Bld) [Mass/Vol] 14.8 g/dL Normal 11.6-15.[address] [facility] [employer] Comment on above: Performed By: #### C NORBERTO, CBCAD, LIPD #### [facility] [address], [place] [id number] Lymphocytes (Bld) [#/Vol] 2.2 10*3/uL Normal 0.9-3.[address] [facility] [employer] Comment on above: Performed By: #### C MP, CBCAD, LIPD #### [facility] [address], [place] [id number] Lymphocytes/100 WBC (Bld) 28.1 % Normal [facility] [employer] Comment on above: Performed By: #### C NORBERTO, CBCAD, LIPD #### [facility] [address], [place] [id number] MCH (RBC) [Entitic mass] 31.2 pg Normal 27.0-33.[address] [facility] [employer] Comment on above: Performed By: #### C MP, CBCAD, LIPD #### [facility] [address], [place] [id number] MCHC (RBC) [Mass/Vol] 33.5 g/dL Normal 32.0-36.[address] [facility] [employer] Comment on above: Performed By: #### C MP, CBCAD, LIPD #### [facility] [address], [place] [id number] MCV (RBC) [Entitic vol] 93 fL Normal 80-[address] [facility] [employer] Comment on above: Performed By: #### C MP, CBCAD, LIPD #### [facility] [address], [place] [id number] Monocytes (Bld) [#/Vol] 0.4 10*3/uL Normal 0.2-0.9 [facility] Comment on above: Performed By: #### C MP, CBCAD, LIPD #### [facility] [address], [place] [id number] Monocytes/100 WBC (Bld) 4.8 % Normal [facility] Comment on above: Performed By: #### C MP, CBCAD, LIPD #### [facility] [address], [place] [id number] Neutrophils (Bld) [#/Vol] 5.1 10*3/uL Normal 1.5-7.8 [facility] Comment on above: Performed By: #### C MP, CBCAD, LIPD #### [facility] [address], [place] [id number] Neutrophils/100 WBC (Bld) 64.3 % Normal [facility] Comment on above: Performed By: #### C MP, CBCAD, LIPD #### [facility] [address], [place] [id number] Platelet mean volume (Bld) [Entitic vol] 11.00 fL Normal 7.50-12.50 [facility] Comment on above: Performed By: #### C MP, CBCAD, LIPD #### [facility] [address], [place] [id number] Platelets (Bld) [#/Vol] 296 10*3/uL Normal 140-400 [facility] Comment on above: Performed By: #### C MP, CBCAD, LIPD #### [facility] [address], [place] [id number] RBC (Bld) [#/Vol] 4.74 10*6/uL Normal 3.90-5.20 [facility] Specialist Comment on above: Performed By: #### C MP, CBCAD, LIPD #### [facility] [address], [place] [id number] RDW-SD 43.4 fL Normal 37.0-50.0 [facility] Specialist Comment on above: Performed By: #### C MP, CBCAD, LIPD #### [facility] [address], [place] [id number] WBC (Bld) [#/Vol] 8.0 10*3/uL Normal 3.8-11.0 [facility] [employer] Comment on above: Performed By: #### C MP, CBCAD, LIPD #### [facility] [address], [place] [id number] Comprehensive Metabolic Pane yair 08-06-2021 Albumin [Mass/Vol] 5.2 g/dL High 3.6-5.1 [facility] [employer] Comment on above: Performed By: #### C MP, CBCAD, LIPD #### [facility] [address], [place] [id number] Albumin/Globulin [Mass ratio] 2.1 {ratio} Normal 1.0-2.[address] [facility] [employer] Comment on above: Performed By: #### C MP, CBCAD, LIPD #### [facility] [address], [place] [id number] ALP [Catalytic activity/Vol] 115 U/L Normal 35-[address] [facility] [employer] Comment on above: Performed By: #### C MP, CBCAD, LIPD #### [facility] [address], [place] [id number] ALT [Catalytic activity/Vol] 101 U/L High 6-[address] [facility] [employer] Comment on above: Result Comment: 03/24 Female reference range changed. Performed By: #### C MP, CBCAD, LIPD #### [facility] [address], [place] [id number] Anion gap [Moles/Vol] 20 mmol/L Normal 12-[address] [facility] [employer] Comment on above: Result Comment: Effe ctive 04/29/2019 reference range changed. Performed By: #### C MP, CBCAD, LIPD #### [facility] [address], [place] [id number] AST [Catalytic activity/Vol] 96 U/L High 9-[address] [facility] Comment on above: Performed By: #### C MP, CBCAD, LIPD #### [facility] [address], [place] [id number] BUN/CREA 9 Ratio Normal 6-22 [facility] Comment on above: Performed By: #### C MP, CBCAD, LIPD #### [facility] [address], [place] [id number] Calcium [Mass/Vol] 9.9 mg/dL Normal 8.6-10.2 [facility] Comment on above: Performed By: #### C MP, CBCAD, LIPD #### [facility] [address], [place] [id number] Chloride [Moles/Vol] 106 mmol/L Normal 98-107 [facility] Comment on above: Performed By: #### C MP, CBCAD, LIPD #### [facility] [address], [place] [id number] CO2 [Moles/Vol] 21 mmol/L Normal 20-31 [facility] Comment on above: Performed By: #### C MP, CBCAD, LIPD #### [facility] [address], [place] [id number] Creatinine [Mass/Vol] 0.9 mg/dL Normal 0.6-1.4 [facility] Comment on above: Performed By: #### C MP, CBCAD, LIPD #### [facility] [address], [place] [id number] eGFRAA 90 mL/min/1.73m2 Normal >60 [facility] Specialist Comment on above: Performed By: #### C MP, CBCAD, LIPD #### [facility] [address], [place] [id number] eGFRNAA 74 mL/min/1.73m2 Normal >60 [facility] Specialist Comment on above: Performed By: #### C MP, CBCAD, LIPD #### [facility] [address], [place] [id number] Globulin (S) [Mass/Vol] 2.5 g/dL Normal 1.9-3.7 [facility] Specialist Comment on above: Performed By: #### C MP, CBCAD, LIPD #### [facility] [address], [place] [id number] Glucose [Mass/Vol] 127 mg/dL High 65-99 [facility] [employer] Comment on above: Result Comment: For FASTING Glucose --- ADA reference ranges: Normal 65-99 mg/dl Prediabetes 100-125 Diabetes >/= 126 Performed By: #### C NORBERTO, CBCAD, LIPD #### [facility] [address], [place] [id number] Potassium [Moles/Vol] 4.2 mmol/L Normal 3.5-5.[address] [facility] [employer] Comment on above: Performed By: #### C MP, CBCAD, LIPD #### [facility] [address], [place] [id number] Protein [Mass/Vol] 7.7 g/dL Normal 6.1-8.1 [facility] [employer] Comment on above: Performed By: #### C NORBERTO, CBCAD, LIPD #### [facility] [address], [place] [id number] Sodium [Moles/Vol] 143 mmol/L Normal 135-146 [facility] [employer] Comment on above: Performed By: #### C MP, CBCAD, LIPD #### [facility] [address], [place] [id number] TBIL <0.3 Normal [facility] Specialist Comment on above: Performed By: #### C NORBERTO, CBCAD, LIPD #### [facility] [address], [place] [id number] Urea nitrogen [Mass/Vol] 8 mg/dL Normal 7-[address] [facility] [employer] Comment on above: Performed By: #### C MP, CBCAD, LIPD #### [facility] [address], [place] [id number] Hemoglobin A1Con 08-06-2021 EAG 99.[address] [facility] [employer] Comment on above: Performed By: #### A 1C #### [facility] [address], [place] [id number] HbA1c (Bld) [Mass fraction] 5.1 % Normal 4.0-6.[address] [facility] [employer] Comment on above: Performed By: #### A 1C #### [facility] [address], [place] [id number] Lipid Panelon 08-06-2021 Cholesterol [Mass/Vol] 190 mg/dL Normal 125-200 [facility] Specialist Comment on above: Result Comment: Low risk < 200mg/dL Borderline risk 201-239 mg/dl High risk > or equal to 240 Performed By: #### C MP, CBCAD, LIPD #### [facility] [address], [place] [id number] Cholesterol in HDL [Mass/Vol] 64 mg/dL Normal >[address] [facility] [employer] Comment on above: Result Comment: High Cardiovascular Risk HDL <40 mg/dL Low Cardiovascular Risk HDL > or equal to 60 mg/dl Performed By: #### C MP, CBCAD, LIPD #### [facility] [address], [place] [id number] Cholesterol in LDL [Mass/Vol] 107 mg/dL Normal [facility] Specialist Comment on above: Result Comment: LDL ATP III CLASSIFICATION LDL less than 100 mg/dl Optimal LDL 100-129 mg/dl Near or above optimal LDL 130-159 Borderline high LDL 160-189 High LDL greater than 189 mg/dl Very High Performed By: #### C MP, CBCAD, LIPD #### [facility] [address], [place] [id number] Cholesterol in VLDL [Mass/Vol] 19 mg/dL Normal [facility] [employer] Comment on above: Performed By: #### C MP, CBCAD, LIPD #### [facility] [address], [place] [id number] Cholesterol.total/Ch olesterol in HDL [Mass ratio] 3 {ratio} Normal [facility] Specialist Comment on above: Performed By: #### C MP, CBCAD, LIPD #### [facility] [address], [place] [id number] Triglyceride [Mass/Vol] 95 mg/dL Normal 30-[address] [facility] [employer] Comment on above: Result Comment: TRIG ATPIII CLASSIFICATIONS TRIG less than 150 mg/dl Normal TRIG 150-199 mg/dl Borderline High TRIG 200-500 mg/dl High TRIG greather than 500 mg/dl Very High Performed By: #### C MP, CBCAD, LIPD #### [facility] [address], [place] [id number] Q - CULTURE,URINE,ROUTINEon 06-04-2021 CULTURE, URINE, ROUTINE SEE NOTE Normal [facility] Comment on above: Order Comment: [facility] Testing performed at: [facility], [address], [address] [facility], [place], [address], Database Coordinator: Tim Dotson MD [facility] Collection Date/Time: [id number] [facility] Results Received Date/Time: [facility] Reported Date/Time: [id number] Result Comment: CULT URE, URINE, ROUTINE Micro Number: [id number] Test Status: Final Specimen Source: Not given Specimen Quality: Adequate Result: Mixed genital marie isolated. These superficial bacteria are not indicative of a urinary tract infection. No further organism identification is warranted on this specimen. If clinically indicated, recollect clean-catch, mid-stream urine and transfer immediately to Urine Culture Transport Tube. Performed By: #### [id number] #### [facility] Default [address] [place] [address] MRI LUMBAR SPINE WO CONTRAST on 11-06-2018 [...] Naren Lagos MD 11/06/18 Final result Normal [facility] Vital Signs Date Time Vital Sign Value Performing Clinician Facility 11-02-2022 13:10-0400 Body height 157.5 cm Samuel Freeman MD Work Phone: [facility] 11-02-2022 13:10-0400 Body weight 71 kg Samuel Freeman MD Work Phone: [facility] 11-02-2022 13:10-0400 Diastolic blood pressure 97 mm[Hg] Samuel Freeman MD Work Phone: [facility] 11-02-2022 13:10-0400 Heart rate 100 /min Samuel Freeman MD Work Phone: [facility] 11-02-2022 13:10-0400 Systolic blood pressure 141 mm[Hg] Samuel Freeman MD Work Phone: [facility] 05-27-2022 11:29-0500 Body weight 85.73 kg Carol Winn MD Work Phone: [facility] 05-27-2022 11:29-0500 Diastolic blood pressure 92 mm[Hg] Carol Winn MD Work Phone: [facility] 05-27-2022 11:29-0500 Heart rate 102 /min Carol Winn MD Work Phone: [facility] 05-27-2022 11:29-0500 Systolic blood pressure 145 mm[Hg] Carol Winn MD Work Phone: [facility] 05-03-2022 15:30-0500 Body height 158.75 cm Imad Asaad Other [employer] Other 05-03-2022 15:30-0500 Body mass index (BMI) [Ratio] 34.55 kg/m2 Imad Asaad Other [employer] Other 05-03-2022 15:30-0500 Body weight 87.09 kg Imad Asaad Other [employer] Other 05-03-2022 15:30-0500 Diastolic blood pressure 91 mm[Hg] Imad Asaad Other [employer] Other 05-03-2022 15:30-0500 Systolic blood pressure 130 mm[Hg] Imad Asaad Other [employer] Other 05-03-2022 14:47-0500 Body weight 0 kg MD Giovani Hagen Work Phone: [facility] Encounters Encounter Date Encounter Type Care Provider Facility Start: 12-28-2023 ambulatory HBAVESH DEJESUS Facility:[facility] Start: 12-04-2023 End: 12-04-2023 ambulatory RUGEN M [...] Evaluation and management of inpatient MARY Pal[facility] Start: 03-20-2023 ambulatory Carol Winn MD Work [...] Start: 10-26-2022 End: 10-26-2022 ambulatory Imad Asaad Facility:[facility] Start: 10-26-2022 End: 10-26-2022 ambulatory MD Giovani Hagen Work Phone: [facility] Work Phone: Start: 10-26-2022 End: 10-26-2022 Patient encounter procedure MD Giovani Hagen Work Phone: [facility] [place] Work Phone: Start: 10-18-2022 ambulatory Maria Dolores Corey DO Work Phone: Gastroenterology Start: 10-18-2022 Telephone encounter Maria Dolores Corey DO Work Phone: Gastroenterology Comment on above: Medication Preauthorization ([employer]) Results Start: 10-17-2022 End: 10-18-2022 ambulatory MARIA DOLORES Rodney COREY Facility:[facility] Start: 10-17-2022 End: 10-17-2022 Patient encounter procedure [facility] Work Phone: Gastroenterology Comment on above: Gastroparesis (Primary Dx) Start: 09-12-2022 ambulatory NOMA DAKHIL Facility[facility] Start: 09-12-2022 End: 09-12-2022 Subsequent hospital visit by physician [facility] Work Phone: [facility] Radiology Molecular Comment on above: Nausea [R11.0] Start: 08-24-2022 Telephone encounter Nurse Jud [facility] Work Phone: Gastroenterology Comment on above: Appointment Start: 07-08-2022 End: 07-08-[address] MADHURI MISHRA . Facility:[facility] Start: 07-06-2022 End: 07-07-[address] MADHURI MISHRA . Facility:[facility] Start: 07-05-2022 End: 07-05-2022 Patient encounter procedure Madhuri MISHRA [facility] Start: 07-04-2022 Orders Only Carol Winn MD Work Phone: Gastroenterology Start: 06-29-2022 End: 06-30-[address] MADHURI MISHRA . Facility:[facility] Start: 06-29-2022 End: 06-29-2022 Lab Drop off Madhuri MISHRA [facility] Start: 06-23-2022 ambulatory Carol Winn MD Work Phone: Gastroenterology Comment on above: EGD instructions Start: 06-23-2022 E-mail encounter from caregiver Carol Winn MD Work Phone: [facility] Start: 06-16-2022 ambulatory [facility] Gastroenterology Comment on above: Question regarding US ABD RT UPPER QUADR ANT Start: 06-15-2022 ambulatory CAROL WINN Facility:[facility] Start: 06-15-2022 End: 06-15-2022 Subsequent hospital visit by physician [facility] Work Phone: [facility] Radiology Ultrasound Comment on above: Liver lesion [K76.9] Start: 06-14-2022 Orders Only Carol Winn MD Work Phone: Ambulatory Surgery Comment on above: Liver lesion (Primary Dx) Results Start: 06-10-2022 ambulatory Diamond Pycraft RT(R) Radiology Ct Scan Comment on above: Radiology CT Start: 06-10-2022 Patient encounter procedure Diamond Pycraft RT(R) [facility] Start: 06-10-2022 End: 02-17-2023 Subsequent hospital visit by physician Ct Prep [facility] Rad[facility] Ct Scan Comment on above: Bilious vomiting with nausea [R11.14] Start: 05-27-2022 ambulatory CAROL WINN Facility:[facility] Start: 05-27-2022 End: 05-27-2022 Subsequent hospital visit by physician [facility] Work Phone: [facility] Radiology General Comment on above: SOB (shortness of breath) [R06.02] Start: 05-27-2022 End: 05-27-2022 Patient encounter procedure Carol Winn MD Work Phone: Gastroenterology Comment on above: Fatty liver (Primary Dx); Bilious vomiting with nausea; Right sided abdominal pain; Nausea; History of diverticulitis; SOB (shortness of breath) Start: 05-13-2022 End: 05-13-2022 ambulatory Imad Asaad Facility:[facility] Start: 05-13-2022 End: 05-13-2022 ambulatory MD Giovani Hagen Work Phone: [facility] Work Phone: Start: 05-13-2022 End: 05-13-2022 Patient encounter procedure MD Giovani Hagen Work Phone: [facility] Work Phone: Start: 05-03-2022 End: 05-04-2022 ambulatory IMAD ASAAD [employer] Other Start: 05-03-2022 Office consultation new/estab patient 60 min Imad Asaad [facility] Start: 04-20-2022 End: 04-20-[address] AURORA IRBY . Facility:[facility] Start: 04-06-2022 End: 04-07-[address] GIOVANI HAGEN Facility:[facility] Start: 12-21-2021 End: 12-22-[address] AURORA IRBY . Facility:[facility] Start: 12-10-2021 End: 12-10-2021 Subsequent hospital visit by physician [facility] Comment on above: Elevated LFTs [...] Start: 11-06-2018 End: 11-09-2018 Patient encounter procedure [facility] Procedures Date Procedure Procedure Detail Performing Clinician [...] Start: 12-24-2023 Influenza [facility] Start: 12-19-2023 End: 12-19-2023 ambulatory 12/19/2023 2:15 PM EDT Results Only Cardiology [address] [place] [address] Exertional Syncope. Referring: Dr. Shilo Dillon Cardiology Comment on above: Exertional Syncope. Referring: Dr. Shilo Dillon Start: 12-19-2023 End: 12-19-2023 Patient encounter procedure Cardiology Comment on above: Exertional Syncope. Referring: Dr. Shilo Dillon Start: 04-24-2023 Behavioral Health Screening Behavioral Health Screening [facility] Start: 12-23-2022 Covid-19 Vaccine ( season) Covid-19 Vaccine ( season) [facility] Start: 12-23-2022 Influenza vaccination [facility] Start: 05-13-2022 [facility] Start: 04-24-2022 DEPRESSION ASSESSMENT DEPRESSION ASSESSMENT [facility] Start: 12-28-2021 COVID-19 VACCINE (4 - Booster for Pfizer series) COVID-19 VACCINE (4 - Booster for Pfizer series) [facility] Start: 12-28-2021 COVID-19 VACCINE (4 - Pfizer series) COVID-19 VACCINE (4 - Pfizer series) [facility] Start: 12-23-2021 Influenza vaccination INFLUENZA (#1) [facility] Start: 02-06-2020 Urine microalbumin profile DTaP,Tdap,Td Vaccine (6 - Td or Tdap) [facility] Start: 2018 HPV TESTING HPV TESTING [facility] Start: 2009 PAP TESTING PAP TESTING [facility] Start: 2009 Screening for malignant neoplasm of cervix Cervical Cancer Screening [facility] Start: 09-29-2007 Urine microalbumin profile DTAP,TDAP,TD (1 - Tdap) [facility] Start: 11-30-2006 HPV Vaccine (2 - 3-dose series) HPV Vaccine (2 - 3-dose series) [facility] Start: 2006 HEPATITIS C SCREENING HEPATITIS C SCREENING [facility] Start: 2006 Hepatitis C screening Hepatitis C Screening [facility] Start: 2006 HIV SCREENING HIV SCREENING [facility] Start: 2006 HIV screening HIV Screening [facility] Start: 1988 HEPATITIS B (1 of 3 - 3-dose series) HEPATITIS B (1 of 3 - 3-dose series) [facility] Actin smooth muscle IgG Ab [Units/volume] in Serum [facility] Alpha 1 antitrypsin [Mass/volume] in Serum or Plasma [facility] Alpha 1 antitrypsin phenotyping [Identifier] in Serum or Plasma by Immunofixation [facility] Ceruloplasmin [Mass/ volume] in Serum or Plasma [facility] End: 06-26-2023 Ct abdomen & pelvis w/o contrast material CT ABD/PEL WO IVCON Radiology Routine Bilious vomiting with nausea Right sided abdominal pain Nausea 1 Occurrences starting 05/27/2022 until 06/26/2023 [facility] Work Phone: Comment on above: 1 Occurrences starting 05/27/2022 until 06/26/2023 End: 11-01-2024 ECG COMPLETE ECG COMPLETE ECG Routine Gastroparesis 1 Occurrences starting 11/02/2023 until 11/01/2024 [facility] Work Phone: Comment on above: 1 Occurrences starting 11/02/2023 until 11/01/2024 End: 05-27-2023 EGD DIAGNOSTIC EGD DIAGNOSTIC Endoscopy Routine Bilious vomiting with nausea Right sided abdominal pain 1 Occurrences starting 05/27/2022 until 05/27/2023 [facility] Work Phone: Comment on above: 1 Occurrences starting 05/27/2022 until 05/27/2023 Electrogastrography dx transcutaneous EGG (ELECTROGASTROGRAPHY) Procedures Routine Gastroparesis Ordered: 09/14/2022 [facility] Work Phone: Comment on above: Ordered: 09/14/2022 Hepatitis A virus Ab [Presence] in Serum by Immunoassay [facility] HFE gene mutations f ound [Identifier] in Blood or Tissue by Molecular genetics method Nominal [facility] Homogenous nuclear A b pattern [Titer] in Serum [facility] IgG [Mass/volume] in Serum or Plasma [facility] Lipoprotein a [Moles /volume] in Serum or Plasma [facility] Mitochondria M2 IgG Ab [Units/volume] in Serum [facility] Nuclear Ab [Titer] in Serum [facility] End: 07-14-2023 Us abdominal real time w/image limited US ABD RT UPPER QUADRANT Radiology Routine Liver lesion 1 Occurrences starting 06/14/2022 until 07/14/2023 [facility] Work Phone: Comment on above: 1 Occurrences starting 06/14/2022 until 07/14/2023 [facility] Immunizations Immunization Date Immunization Notes Care Provider Bernadette vickers 11-02-2021 SARS-CoV-2 mRNA (pvnijnfwdko-zwdt-sutk ose) vaccine Madhuri MISHRA [facility] 04-29-2021 SARS-CoV-2 (COVID-19 ) mRNA BNT-162b2 vax Madhuri MISHRA [facility] 03-03-2021 SARS-CoV-2 (COVID-19 ) mRNA BNT-162b2 vax Madhuri MISHRA [facility] Comment on above: Result Comment: 2022: TPVAL 02-09-2021 influenza virus vaccine, unspecified formulation Madhuri MISHRA [facility] 03-16-2020 influenza virus vaccine, unspecified formulation Madhuri MISHRA [facility] 01-08-2018 influenza virus vaccine, unspecified formulation Madhuri MISHRA [facility] 02-01-2017 influenza virus vaccine, unspecified formulation Madhuri MISHRA [facility] 03-25-2016 influenza virus vaccine, unspecified formulation Madhuri MISHRA [facility] 02-05-2010 tetanus toxoid, reduced diphtheria toxoid, and acellular pertussis vaccine, adsorbed Madhuri MISHRA [facility] 01-05-2007 hepatitis B vaccine, pediatric or pediatric/adolescent dosage Madhuri ONEPLE [facility] 11-02-2006 hepatitis B vaccine, pediatric or pediatric/adolescent dosage Madhuri ONEPLE [facility] 11-02-2006 HPV, unspecified formulation Madhuri ONEPLE [facility] 11-02-2006 meningococcal ACWY vaccine, unspecified formulation Madhuri ONEPLE [facility] 02-20-1998 hepatitis B vaccine, pediatric or pediatric/adolescent dosage Madhuri ONEPLE [facility] 12-07-1992 measles, mumps and rubella virus vaccine Madhuri MISHRA [facility] 06-09-1992 measles, mumps and rubella virus vaccine Madhuri MISHRA [facility] 10-31-1990 varicella virus vaccine Madhuri MISHRA [facility] NEGATED: Highlighted row has not occurred!05-01-2019 influenza virus vaccine, live, attenuated, for intranasal use Madhuri MISHRA [facility] NEGATED: Highlighted row has not occurred!04-03-2019 influenza virus vaccine, live, attenuated, for intranasal use Madhuri MISHRA [facility] Payers Date Payer Category Payer Self-pay [id number] 2020 Unknown [id number] 1988 Unknown [id number] 2.16.840.1.217410.3.579.2.182 1988 Unknown [id number] 2.16.840.1.928531.3.579.2.593 1988 Unknown [id number] 2.16.840.1.592055.3.579.2.593 1988 Unknown [id number] 2.16.840.1.788849.3.579.2.593 1988 Unknown [id number] 2.16.840.1.291514.3.579.2.593 1988 Unknown [id number] 2.16.840.1.667807.3.579.2.593 1988 Unknown [id number] 2.16.840.1.188683.3.579.2.593 1988 Unknown [id number] 2.16.840.1.916541.3.579.2.593 1988 Unknown [id number] 2.16.840.1.424385.3.579.2.593 1988 Unknown [id number] 2.16.840.1.863138.3.579.2.593 1988 Unknown [id number] 2.16.840.1.580521.3.579.2.593 1988 Unknown [id number] 2.16.840.1.366729.3.579.2.593 1988 Unknown [id number] 2.16.840.1.190602.3.579.2.593 1988 Unknown [id number] 2.16.840.1.577895.3.579.2.593 1988 Unknown [id number] 2.16.840.1.584685.3.579.2.177 1988 Unknown [id number] 2.16840.1.242561.3.579.2.727 1988 Unknown [id number] 2.16840.1.229278.3.579.2.1259 1988 Unknown [id number] 2.16.840.1.288497.3.579.2.1259 1988 Unknown [id number] 2.16.840.1.963777.3.579.2.1259 1988 Unknown [id number] 2.16840.1.436573.3.579.2.1259 1988 Unknown [id number] 2.16840.1.815860.3.579.2.1259 1988 Unknown [id number] 2.16840.1.406040.3.579.2.1259 1959 Unknown [id number] Unknown [id number] [facility] [employer] [id number] Unknown [id number] 2.16840.1.054943.3.579.2.531 Unknown [id number] 2.16840.1.696337.3.579.2.531 Social History Date Type Detail Facility Tobacco smoking stat us NHIS Unknown if ever smoked [facility] Work Phone: Start: 1990 Sex Assigned At Female F [facility] Start: 03-28-2019 End: 05-27-2022 Tobacco smoking status NHIS Never smoked tobacco [facility] Start: 03-28-2019 End: 05-27-2022 Tobacco use and exposure Smokeless tobacco non-user [facility] Start: 05-27-2022 End: 11-02-2022 Alcohol intake Current drinker of alcohol (finding) [facility] Start: 03-28-2019 Alcohol Comment socially [facility] Start: 1990 Sex Assigned At Not on file [facility] Start: 10-17-2022 End: 11-02-2022 Sex Assigned At [facility] Start: 06-29-2022 Tobacco smoking status Ex-smoker (fi nding) [facility] Tobacco smoking status Never [facility] Start: 10-17-2022 End: 11-02-2022 History of Social function [facility] Start: 06-08-2021 Gender identity Identifies as female gender (finding) [facility] Start: 11-16-2021 End: 11-26-2021 Exposure to SARS-CoV-2 (event) Not sure [facility] Goals Date Patient Goal Desired Activity /State Functional Status Date Assessment Result Facility 06-30-2022 Functional Status N/A [facility] Clinical Notes 05-03-2022 to 11-02-2023 [...] Referral- 11/01/23 (Dr. Shilo Dillon/Cardiology) Criss Mccrary [facility] 11-02-2023 Miscellaneous Notes Images from the original note were not included. Records are in Care Everywhere: EP Referral- 11/01/23 (Dr. Shilo Dillon/Cardiology) Criss Mccrary documented in this encounter [facility] 03-20-2023 Miscellaneous Notes Patient is a [...] prior to transfer. documented in this encounter [facility] 11-03-2022 Miscellaneous Notes PA for Ibsrela initiated electronically. Awaiting response [facility] ID# [id number] Rx BIN [id number] Rx PCN CLAIMCR Rx Grp STOH documented in this encounter [facility] 11-02-2022 History of Present illness Narrative Behavioral Medicine [facility] [place] Name: Belgica Harper MR#: [id number] Date: 11/02/2022 Time: 1 hour Referred by: [...] She was given the website for the [facility] and shown the relaxation recordings with the recommendation to practice this and the rationale behind their use. Follow-up with Dr. Conteh was discussed as well as encouraging her to continue her PTSD work with a local trauma therapist. Soraida Zhang, Ph.D. documented in this encounter [facility] 11-02-2022 History of Present illness Narrative Assessment ASSESSMENT 32 year old female with medical refractory gastroparesis. PLAN I discussed surgical therapy for gastroparesis in detail. Belgica Harper is candidate for further medical treatment. Needs to stop Wegovy May consider for wireless motility capsule study Constipation medication change per Dr. 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 Maria Dolores Corey DO P Sp Ddsi Clinical Pool Please ask her to see ROW BOSS to r/o endometriosis there was a very slight abnormal wave (not strong) suggesting its possible Called and spoke with the patient and relayed providers message. documented in this encounter [facility] 10-18-2022 Miscellaneous Notes PA initiated via [employer]. Await response. Covered: Retail, Mail Order Unknown: Specialty, Long-Term Care Group ID: [id number] Group name: BIN: [id number] PCN: [id number] documented in this encounter [facility] 10-18-2022 History of Present illness Narrative Images from the original note were not included. documented in this encounter [facility] 10-17-2022 Nurse Note EGG completed. Able to drink the 500 ml of water without any difficulty. documented in this encounter [facility] 09-12-2022 Note HNO ID: [id number] Author: RT Amber(R) Service: Nuclear Medicine Author Type: Traffic Ii Manager Type: Progress Notes Filed: 09/12/2022 2:46 PM [...] 10:11AM PATIENT DISCHARGED TO: Ambulatory patient, left ID department area. A Diagnostic radioactive procedure has taken place, with no further precautions necessary other than routine body substance precautions. More information regarding radiation safety can be found using this link: [email or web address]%20Med [email or web address] SIGNATURE: Shivani Vasquez RT(R) PATIENT NAME: Belgica Harper DATE: September 12, 2022 TIME: 2:45 PM PAGER/CONTACT #: [facility] 09-12-2022 History of Present illness Narrative RADIOLOGY [...] 10:11AM PATIENT DISCHARGED TO: Ambulatory patient, left ID department area. A Diagnostic radioactive procedure has taken place, with no further precautions necessary other than routine body substance precautions. More information regarding radiation safety can be found using this link: [email or web address] [email or web address]%20Nucl ear%20Medicine%[email or web address] SIGNATURE: RT Amber(R) PATIENT NAME: Belgica Harper DATE: September 12, 2022 TIME: 2:45 PM PAGER/CONTACT #: documented in this encounter [facility] 08-24-2022 Miscellaneous Notes Lm to confirm procedure for 08-31-22 documented in this encounter [facility] 07-05-2022 Hospital Discharge instructions Patient Education [...] [facility] [address] , [place] [address]- Business (1) When:11/04/2022 08:39:10 Comments:With a stone metabolic work-up [facility] 06-23-2022 Miscellaneous Notes Confirmed procedure for 06-30-22 documented in this encounter [facility] 06-15-2022 Note HNO ID: [id number] Author: Monet Osei RDMS Service: Abstract Author Type: Building Rental Superintendent Type: Progress Notes Filed: 06/15/2022 8:09 PM [...] Osei RDMS June 15, 2022 8:08 PM [facility] 06-15-2022 History of Present illness Narrative Radiology [...] 2022 8:08 PM documented in this encounter [facility] 06-14-2022 Miscellaneous Notes Images from the [...] needed pending results documented in this encounter [facility] 06-10-2022 History of Present illness Narrative [...] 2022 10:01 AM documented in this encounter [facility] 05-27-2022 Note HNO ID: [id number] Author: RT Nakita(Aroldo) Service: Radiology Author Type: [...] RT Nakita(R) May 27, 2022 12:29 PM [facility] 05-27-2022 History of Present illness Narrative Radiology [...] 2022 12:29 PM documented in this encounter [facility] 05-27-2022 History of Present illness Narrative [...] follow up with Dr. 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 documented in this encounter [facility] 05-03-2022 Evaluation note Encounter Date Diagnosis Assessment Notes Apr, ENGLISH (nonalcoholic steatohepatiti s) (ICD-10 - K75.81) Apr, Abnormal ultrasound (ICD-10 - R93.89) Apr, Elevated liver enzymes (ICD-10 - R74.8) Apr, Liver cyst (ICD-10 - K76.89) [facility] Other Evaluation + Plan note Future Appointments Appointment Date:06/30/2022 10:00:00 AM Scheduled Provider: [facility] Appointment Type:Urology CALL PAT FT Appointment Date:07/05/2022 08:15:00 AM Scheduled Provider: Location:[facility] Appointment Type:Urology FT Diagnostic Tests Pending * Urine Culture 06/29/22 [facility] + Plan note Future Appointments Appointment Date:11/07/2022 03:15:00 PM Scheduled Provider:Madhuri MISHRA MD Location:[facility] Appointment Type:URO Office Visit [facility] noteNo assessment information available [facility] Work Phone: Evaluation note* Diagnosis Fatty liver- Primary Other chronic nonalcoholic liver disease Bilious vomiting with nausea Right sided abdominal pain Abdominal pain, unspecified site Nausea Nausea alone History of diverticulitis SOB (shortness of breath) Shortness of breath [facility] encounter [facility]* Diagnosis Liver lesion- Primary Other specified disorders of liver documented in this encounter [facility]* Diagnosis Gastroparesis- Primary documented in this encounter [facility]* Diagnosis Gastroparesis- Primary documented in this encounter [facility]* Diagnosis Irritable bowel syndrome with constipation- Primary Irritable bowel syndrome documented in this encounter [facility] note* Diagnosis Gastroparesis [facility]* Diagnosis Gastroparesis- Primary documented in this encounter [facility]* Diagnosis SOB (shortness of breath) Shortness of breath [facility] Diagnosis Liver lesion Other specified disorders of liver documented in this encounter [facility]* Diagnosis Elevated LFTs Other abnormal blood chemistry documented in this encounter [facility] note* Diagnosis Bilious vomiting with nausea Right sided abdominal pain Abdominal pain, unspecified site Nausea Nausea alone documented in this encounter [facility] note* Diagnosis Nausea Nausea alone documented [facility] this encounter [facility]* Diagnosis Gastroparesis- Primary [facility] N[facility] - Reported* Type Description Date Medical History Anxiety Medical History Depression Medical History Diverticulosis Medical History bipolar Surgical History C section Surgical History hysterectomy Hospitalization History see above Hospitalization History diverticulitis 01/24/18 Hospitalization History NONE ON THE LAST YEAR [facility] Other Hospital course Narrative No data available [facility] No data [facility] this [facility] No data available for this section [facility] for referral (narrative)* Outpatient Procedure (Routine) - Authorized Specialty Diagnoses / Procedures Referred By Norma t Referred To Contact [facility] Diagnoses Bilious vomiting with nausea Right sided abdominal pain Procedures EGD DIAGNOSTIC ESOPHAGOGASTRODUODENOSC OPY TRANSORAL [place] [address] [place] [address] [facility] [place] [address] [place] [address] Referral ID Status Reason Start Date Expiration Date Visits Requested Visits Authorized [id number] Authorized Auto-Generat ed Referral 05/27/2022 05/27/2023 1 1 * MRI/CT (Routine) - Authorized Specialty Diagnoses / Procedures Referred By Norma kennedy Referred To Contact CT IMAGING Diagnoses Bilious vomiting with nausea Right sided abdominal pain Nausea Procedures CT ABD/PEL WO IVCON CT ABD & P[place] [address] [place] [address] Ct Imaging Referral ID Status Reason Start Date Expiration Date Visits Requested Visits Authorized [id number] Authorized Auto-Generat ed Referral 05/27/2022 06/26/[address] [facility] for referral (narrative)* Diagnostic Procedure Only (Routine) - Authorized Specialty Diagnoses / Procedures Referred By Norma kennedy Referred To Contact US IMAGING Diagnoses Liver lesion Procedures US ABD RT UPPER QUADRANT US ABDOMINAL REAL TIME W/[place] [address] [place] [address] Us Imaging Referral ID Status Reason Start Date Expiration Date Visits Requested Visits Authorized [id number] Authorized Auto-Generat ed Referral 06/14/2022 07/14/[address] [facility] for referral (narrative)* Diagnostic Procedure Only (Routine) - Closed Specialty Diagnoses / Procedures [facility] Referred To Contact [facility] IMAG[facility] Diagnoses Liver lesion Procedures US ABD RT UPPER QUADRANT US ABDOMINAL REAL TIME W/[place] [address] [place] [address] [place] [address] Referral ID Status Reason Start Date Expiration Date V isits Requested Visits Authorized [id number] Closed Auto-Generate d Referral 06/14/2022 07/14/[address] [facility] for referral (narrative)* Diagnostic Procedure Only (Routine) - Closed Specialty Diagnoses / Procedures [facility] Referred To Contact US IMAGING Diagnoses Elevated LFTs Procedures US ABD RT UPPER QUADRANT US ABDOMINAL REAL TIME W/IMAGE LIMITED Carol [place] [address] [place] [address] Us Imaging [facility] Referral ID Status Reason Start Date Expiration Date V isits Requested Visits Authorized [id number] Closed Auto-Generate d Referral 11/24/2021 12/24/2022 1 1 T [facility] for referral (narrative)* Diagnostic Procedure Only (Routine) - Closed Specialty Diagnoses / Procedures [facility] Referred To Contact MOLECULAR & FUNCTIONAL IMAGING Diagnoses Nausea Procedures NM GASTRIC EMPTYING SOLID [place]STRIC [place] [address] [place] [address] Molecular & Functional Imaging [address] [place] [address] Referral ID Status Reason Start Date Expiration Date V isits Requested Visits Authorized [id number] Closed Auto-Generate d Referral 08/31/2022 09/30/2023 1 1 [facility] for referral (narrative)* Outpatient Procedure (Routine) - Authorized Specialty Diagnoses / Procedures [facility] Referred To Contact [facility] Diagnoses Gastroparesis Procedures ECG COMPLETE ECG ROUTINE ECG W/LEAST 12 LDS W/I&R Solo Mora MD [address] [id number] [facility] [place] [id number] Referral ID Status Reason Start Date Expiration Date Visits Requested Visits Authorized [id number] Authorized Auto-Generat ed Referral 11/02/2023 11/01/2024 1 1 [facility] for visit NarrativePATIENT HERE AT THE REQUEST OF DR. HAGEN FOR ENGLISH & ABNORMAL US. ULTRASOUND AND LABS IN REFERRAL. PATIENT STATES SHE FEELS LETHARGIC & HAS OCCASIONAL ABDOMINAL PAINClinton [employer] Other Reason for visit Narrative* Diagnostic Procedure Only (Routine) - Closed Specialty Diagnoses / Procedures [facility] Referred To Contact US IMAGING Diagnoses Liver lesion Procedures US ABD RT UPPER QUADRANT US ABDOMINAL REAL [place] W/[place] [address] [place] [address] Us Imaging [facility] Referral ID Status Reason Start Date Expiration Date V isits Requested Visits Authorized [id number] Closed Auto-Generate d Referral 06/14/2022 07/14/2023 1 1 [facility] for visit Narrative* Diagnostic Procedure Only (Routine) - Closed Specialty Diagnoses / Procedures [facility] Referred To Contact US IMAGING Diagnoses Elevated LFTs Procedures US ABD RT UPPER QUADRANT US ABDOMINAL REAL [place] W/[place] [address] [place] [address] Us Imaging [facility] Referral ID Status Reason Start Date Expiration Date V isits Requested Visits Authorized [id number] Closed Auto-Generate d Referral 11/24/2021 12/24/2022 1 1 [facility] for visit Narrative* Diagnostic Procedure Only (Routine) - Closed Specialty Diagnoses / Procedures Referred By Norma t Referred To Contact MOLECULAR & FUNCTIONAL IMAGING Diagnoses Nausea Procedures NM GASTRIC EMPTYING SOLID GASTRIC [place] [address] [place] [address] Molecular & Functional Imaging [address] [place], [place] [id number] Referral ID Status Reason Start Date Expiration Date V isits Requested Visits Authorized [id number] Closed Auto-Generate d Referral 08/31/2022 09/30/2023 1 1 [facility] Summary Purpose Family History No Family [...] & PELVIS W/[place] [address] [place] [address] [place] [address] Referral ID Status Reason Start Date Expiration Date V isits Requested Visits Authorized [id number] Closed Auto-Generate d Referral 05/27/2022 06/26/2023 1 1 Additional Source Comments INFORMATION SOURCE (unrecogn ized section and content) DATE CREATED AUTHOR 11/09/2018 [facility] DATE CREATED AUTHOR AUTHOR'S ORGANIZ ATION 08/23/2021 [facility] dical Specialist DATE CREATED AUTHOR AUTHOR'S ORGANIZ ATION 07/17/2022 [facility] DATE CREATED AUTHOR AUTHOR'S ORGANIZ ATION 10/29/2022 [facility] DATE CREATED AUTHOR AUTHOR'S ORGANIZ ATION 10/31/2022 [facility] DATE CREATED AUTHOR AUTHOR'S ORGANIZ ATION 03/22/2023 [facility] DATE CREATED AUTHOR AUTHOR'S ORGANIZ ATION 03/28/2023 [facility] DATE CREATED AUTHOR AUTHOR'S ORGANIZ ATION 11/23/2023 [facility] DATE CREATED AUTHOR AUTHOR'S ORGANIZ ATION 12/03/2023 [facility] DATE CREATED AUTHOR AUTHOR'S ORGANIZ ATION 12/06/2023 [facility] dical Specialists [facility] Care Teams (unrecognized sec tion and content) Team Status: Active Member Role Status Dates Giovani Hagen MD Primary Care Provider Active Team Status: Inactive Member Role Status Dates Erwin Hylton MD Attending Provider Active Giovani Hagen MD Primary Care Provider Active School Business Administrator Relationship Specialty Start Date End Date Giovani Hageny [address] [facility] [address] [place] [address] PCP - General Family Medicine 03/27/19 School Business Administrator Relationship Specialty Start Date End Date Giovani Hagenalay [address] [facility] [address] [place] [address] PCP - General Family Medicine 03/27/19 School Business Administrator Relationship Specialty Start Date End Date Giovani Hagenalay [address] [facility] [address] [place] [address] PCP - General Family Medicine 03/27/19 School Business Administrator Relationship Specialty Start Date End Date Giovani Hagenalay [address] [place] [address] [place] [address] PCP - General Family Medicine 03/27/19 School Business Administrator Relationship Specialty Start Date End Date Giovani Hagenalay [address] [place] [address] [place] [address] PCP - General Family Medicine 03/27/19 School Business Administrator Relationship Specialty Start Date End Date TrailGiovani lunaalay [address] [facility] [address] [place] [address] PCP - General Family Medicine 03/27/19 School Business Administrator Relationship Specialty Start Date End Date Giovani Hagen [address] [place] [address] [place] [address] PCP - General Family Medicine 03/27/19 School Business Administrator Relationship Specialty Start Date End Date Giovani Hagen [address] [place] [address] [place] [address] PCP - General Family Medicine 03/27/19 School Business Administrator Relationship Specialty Start Date End Date Giovani Hagen [address] [place] [address] [place] [address] PCP - General Family Medicine 03/27/19 School Business Administrator Relationship Specialty Start Date End Date Giovani Hageny [address] [place] [address] [place] [address] PCP - General Family Medicine 03/27/19 School Business Administrator Relationship Specialty Start Date End Date Giovani Hagen [address] [place] [address] [place] [address] PCP - General Family Medicine 03/27/19 School Business Administrator Relationship Specialty Start Date End Date Giovani Hagen [address] [place] [address] [place] [address] PCP - General Family Medicine 03/27/19 School Business Administrator Relationship Specialty Start Date End Date Giovani Hagen [address] [place] [address] [place] [address] PCP - General Family Medicine 03/27/19 School Business Administrator Relationship Specialty Start Date End Date Giovani Hagen [address] [place] [address] [place] [address] PCP - General Family Medicine 03/27/19 School Business Administrator Relationship Specialty Start Date End Date Giovani Hagen MD [address] [place] [address] [place] [address] PCP - General Family Medicine 03/27/19 School Business Administrator Relationship Specialty Start Date End Date Giovani Hagen MD [address] [place] [address] [place] [address] PCP - General Family Medicine 03/27/19 School Business Administrator Relationship Specialty Start Date End Date Giovani Hagen MD [address] [place] [address] [place] [address] PCP - General Family Medicine 03/27/19 School Business Administrator Relationship Specialty Start Date End Date Giovani Hagen MD [address] [place] [address] [place] [address] PCP - General Family Medicine 03/27/19 School Business Administrator Relationship Specialty Start Date End Date Giovani Hagen MD [address] [place] [address] [place] [address] PCP - General Family Medicine 03/27/19 School Business Administrator Relationship Specialty Start Date End Date Giovani Hagen MD [address] [place] [address] [place] [address] PCP - General Family Medicine 03/27/19 School Business Administrator Relationship Specialty Start Date End Date Giovani Hagen MD [address] [place] [address] [place] [address] PCP - General Family Medicine 03/27/19 School Business Administrator Relationship Specialty Start Date End Date Giovain Hagen MD [address] [place] [address] [place] [address] PCP - General Family Medicine 03/27/19 School Business Administrator Relationship Specialty Start Date End Date Giovani Hagen MD [address] [place] [address] [place] [address] PCP - General Family Medicine 03/27/19 School Business Administrator Relationship Specialty Start Date End Date Giovani Hagen MD [address] [place] [address] [place] [address] PCP - General Family Medicine 03/27/19 Source Comments (unrecognize d section and content) In the event this informatio n is protected by the Federal Confidentiality of Alcohol and Drug Abuse Patient Records regulations: The Federal rules restrict any use of the information to criminally investigate or prosecute any alcohol or drug abuse patient.[facility] the event this information is protected by the Federal Confidentiality of Alcohol and Drug Abuse Patient Records regulations: The Federal rules restrict any use of the information to criminally investigate or prosecute any alcohol or drug abuse patient.[facility] the event this information is protected by the Federal Confidentiality of Alcohol and Drug Abuse Patient Records regulations: The Federal rules restrict any use of the information to criminally investigate or prosecute any alcohol or drug abuse patient.[facility] the event this information is protected by the Federal Confidentiality of Alcohol and Drug Abuse Patient Records regulations: The Federal rules restrict any use of the information to criminally investigate or prosecute any alcohol or drug abuse patient.[facility] the event this information is protected by the Federal Confidentiality of Alcohol and Drug Abuse Patient Records regulations: The Federal rules restrict any use of the information to criminally investigate or prosecute any alcohol or drug abuse patient.[facility] the event this information is protected by the Federal Confidentiality of Alcohol and Drug Abuse Patient Records regulations: The Federal rules restrict any use of the information to criminally investigate or prosecute any alcohol or drug abuse patient.[facility] the event this information is protected by the Federal Confidentiality of Alcohol and Drug Abuse Patient Records regulations: The Federal rules restrict any use of the information to criminally investigate or prosecute any alcohol or drug abuse patient.[facility] the event this information is protected by the Federal Confidentiality of Alcohol and Drug Abuse Patient Records regulations: The Federal rules restrict any use of the information to criminally investigate or prosecute any alcohol or drug abuse patient.[facility] the event this information is protected by the Federal Confidentiality of Alcohol and Drug Abuse Patient Records regulations: The Federal rules restrict any use of the information to criminally investigate or prosecute any alcohol or drug abuse patient.[facility] the event this information is protected by the Federal Confidentiality of Alcohol and Drug Abuse Patient Records regulations: The Federal rules restrict any use of the information to criminally investigate or prosecute any alcohol or drug abuse patient.[facility] the event this information is protected by the Federal Confidentiality of Alcohol and Drug Abuse Patient Records regulations: The Federal rules restrict any use of the information to criminally investigate or prosecute any alcohol or drug abuse patient.[facility] the event this information is protected by the Federal Confidentiality of Alcohol and Drug Abuse Patient Records regulations: The Federal rules restrict any use of the information to criminally investigate or prosecute any alcohol or drug abuse patient.[facility] [facility] HospitalIn the event this information is protected by the Federal Confidentiality of Alcohol and Drug Abuse Patient Records regulations: The Federal rules restrict any use of the information to criminally investigate or prosecute any alcohol or drug abuse patient.[facility] HospitalIn the event this information is protected by the Federal Confidentiality of Alcohol and Drug Abuse Patient Records regulations: The Federal rules restrict any use of the information to criminally investigate or prosecute any alcohol or drug abuse patient.[facility] HospitalIn the event this information is protected by the Federal Confidentiality of Alcohol and Drug Abuse Patient Records regulations: The Federal rules restrict any use of the information to criminally investigate or prosecute any alcohol or drug abuse patient.[facility] HospitalIn the event this information is protected by the Federal Confidentiality of Alcohol and Drug Abuse Patient Records regulations: The Federal rules restrict any use of the information to criminally investigate or prosecute any alcohol or drug abuse patient.[facility] HospitalIn the event this information is protected by the Federal Confidentiality of Alcohol and Drug Abuse Patient Records regulations: The Federal rules restrict any use of the information to criminally investigate or prosecute any alcohol or drug abuse patient.[facility] HospitalIn the event this information is protected by the Federal Confidentiality of Alcohol and Drug Abuse Patient Records regulations: The Federal rules restrict any use of the information to criminally investigate or prosecute any alcohol or drug abuse patient.[facility] HospitalIn the event this information is protected by the Federal Confidentiality of Alcohol and Drug Abuse Patient Records regulations: The Federal rules restrict any use of the information to criminally investigate or prosecute any alcohol or drug abuse patient.[facility] HospitalIn the event this information is protected by the Federal Confidentiality of Alcohol and Drug Abuse Patient Records regulations: The Federal rules restrict any use of the information to criminally investigate or prosecute any alcohol or drug abuse patient.[facility] HospitalIn the event this information is protected by the Federal Confidentiality of Alcohol and Drug Abuse Patient Records regulations: The Federal rules restrict any use of the information to criminally investigate or prosecute any alcohol or drug abuse patient.[facility] HospitalIn the event this information is protected by the Federal Confidentiality of Alcohol and Drug Abuse Patient Records regulations: The Federal rules restrict any use of the information to criminally investigate or prosecute any alcohol or drug abuse patient.[facility] HospitalIn the event this information is protected by the Federal Confidentiality of Alcohol and Drug Abuse Patient Records regulations: The Federal rules restrict any use of the information to criminally investigate or prosecute any alcohol or drug abuse patient.[facility] HospitalIn the event this information is protected by the Federal Confidentiality of Alcohol and Drug Abuse Patient Records regulations: The Federal rules restrict any use of the information to criminally investigate or prosecute any alcohol or drug abuse patient.[facility] HospitalIn the event this information is protected by the Federal Confidentiality of Alcohol and Drug Abuse Patient Records regulations: The Federal rules restrict any use of the information to criminally investigate or prosecute any alcohol or drug abuse patient.[facility] HospitalIn the event this information is protected by the Federal Confidentiality of Alcohol and Drug Abuse Patient Records regulations: The Federal rules restrict any use of the information to criminally investigate or prosecute any alcohol or drug abuse patient.[facility] Reason for Visit (unrecogniz ed section [...] & [place] [address] [place] [address] [place] [id number] Referral ID Status Reason Start Date Expiration Date V isits Requested Visits Authorized [id number] Closed Auto-Generate d Referral 05/27/2022 06/26/2023 1 [...] BE BASED ON THE PRIMARY CLINICAL RECORDS. [employer] [facility]. provides no warranty or guarantee of the accuracy or completeness of information in this document.
[2023-12-13 07:30] LABS: Chol HDL Ratio 3.5; Cholesterol 209 mg/dL (<=200); HDL Cholesterol 60 mg/dL (40-60); Triglycerides 117 mg/dL (<=150); VLDL CHOLESTEROL 23.4 mg/dL
== END 2023-12-13 06:44 | disposition home or self-care (01) ==
LOC: LAB 06:43
PROVIDERS: PCP Family Medicine; Visit Provider Family Medicine
DX: Z00.00 Encounter for general adult medical examination without abnormal findings (principal); F31.73 Bipolar disorder, in partial remission, most recent episode manic
CPT/HCPCS: 36415; 80061

== ENCOUNTER 2023-12-13 06:45 | Outpatient (OUT) | payer OTHER, SELFPAY ==
--- OUTSIDE RECORDS SUMMARY | 2023-12-13 06:48 | XMS_ITS | CCD ---
Author Organization [facility] Care Team Providers Care Completion Engineer Name Role Phone SHIVANI MONTEIRO Referring Unavailable GIOVANI HAGEN Primary Care Unavailable MD Erwin Hylton Attending Provider MD Giovani Hagen Primary Care Provider Giovani Hagen Primary Care Provider Erwin Hylton Unavailable GIOVANI HAGEN Primary Care Physician [phone] SURE[address] ., DR SIMON Consulting Unavailabl e [...] Primary Care Provider DAKHIL, NOMA Ref[facility] Un[facility] DAKHIL, NOMA Referring Unavailable [facility] Unavailable DAKHIL, NOMA Referring Un[facility] Unavailable MARIA DOLORES COREY Referring Unavailable [facility] Unavailable Asaad, Imad Admitting Unavailable Asaad, Imad Attending Unavailable [facility] Asaad, Imad Admitting Unavailable Asaad, Imad Attending Unavailable [facility] Hieu Giovani FRIEDMAN [facility] Care Provider [phone] BLOOD, MARY Culver Admitting Unavailable BLOOD, MARY Culver Attending Unavailable JACKSON MONTENEGRO Consulting Unavailable SONIYA PATEL Referring [facility] Unavailable MAKENNA AMAYA Consulting Unavailable Hieu Giovani FRIEDMAN [facility] Primary Care Provider [phone] BHAVESH DEJESUS Attending Unavailable GIOVANI HAGEN Attending Unavailable GIOVANI HAGEN Attending Unavailable CADE WILCOX Attending Unavailable GIOVANI HAGEN Attending Unavailable GIOVANI HAGEN Attending Unavailable AKUA DU Attending Unavailable Allergies Allergy Classification Reported Allergen(s) Allergy Type Date of Onset Reaction(s) Facility Iodine (and Iodine containting drugs) (2 sources) Iodine Drug Allergy 9 Swelling, Itching [facility] Iohexol (2 sources) Iohexol Drug Allergy 9 Itching [facility] (20 sources) Iodine; Translations: [IODINE] Drug Allergy 9 Swelling, Itching [facility] (20 sources) Iohexol; Translations: [IOHEXOL] Drug Allergy 9 Itching [facility] (1 source) Cat Propensity to adverse reactions anaphylaxis [facility] [employer] [place] Other (1 source) tree nut, unspecified Propensity to adverse reactions anaphylaxis [facility] [employer] [place] Other (1 source) peanut allergenic extract Drug Allergy [facility] (1 source) Cat/Feline Product Derivatives Drug allergy (disorder) 3 [facility] (1 source) No Known Medication Allergies; Translations: [No Known Medication Allergies] Propensity to adverse reactions (disorder) [facility] Repository Medications Current Medications Medication Drug [...] capsules by mouth at bedtime Bis Subcit Lpb-Nndyl-Ybjzftym (PYLERA) 140-125-125 mg per capsule Take 3 [...] days., # 50 cap(s), Refills(s) 0, Pharmacy: [facility]/pharmacy #[id number], 158, cm, 06/29/22 8:19:00 EST, Height/Length [...] 0 Active take 1 capsule by mo [facility] every twenty-four hours Vyvanse 50 MG 1 [...] doxepin HCl (D OXEPIN ORAL) estrogens, conjugated (fci) 0.625 mg/ml vaginal cream (15 sources) Estrogen [...] Comment on above: TAKE 1 CAPSULE BY [facility] EVERY DAY IN THE MORNING FOR 30 [...] Test Name Value Interpretation Reference Range Facility [facility] 11-02-2023 CNPN Telephone (CARDMN) BELGICA HARPER ([id number]) 1990 F Date Time Provider Department 11/02/23 [...] Status:Closed by CRISS MCCRARY on 11/02/23 Normal [facility] Extra Lavender Tubeon 2022 Extra Lavender Tube Normal [facility] Comment on above: Performed By: #### X LAV, LIVP, LIP #### [facility] [address] [facility] [place] [address] Charge Account Identification Clerk: Ronald Pearce MD Lipaseon 03-24-2023 Lipase [Catalytic activity/Vol] 260 U/L High 13-60 [facility] Comment on above: Performed By: #### X LAV, LIVP, LIP #### [facility] [address] [place] [address] Charge Account Identification Clerk: Ronald Pearce MD Liver Profileon 03-24-2023 Albumin [Mass/Vol] 3.5 g/dL Normal 3.5-5.2 [facility] Comment on above: Performed By: #### X LAV, LIVP, LIP ####[facility] [address] [place] [address] Lab Director: Ronald Pearce MD Alkaline Phos 321 U/L High 35-104 [facility] Comment on above: Performed By: #### X LAV, LIVP, LIP ####[facility] [address] [place] [phone] Director: Ronald Pearce MD ALT [Catalytic activity/Vol] 137 U/L High 5-33 [facility] Comment on above: Performed By: #### X LAV, LIVP, LIP ####[facility] [address] [place] [phone] Director: Ronald Pearce MD AST [Catalytic activity/Vol] 60 U/L High <32 [facility] Comment on above: Performed By: #### X LAV, LIVP, LIP ####[facility] [address] [facility] [place] [phone] Director: Ronald Pearce MD Bilirubin [Mass/Vol] 1.0 mg/dL Normal 0.3-1.2 [facility] Comment on above: Performed By: #### X LAV, LIVP, LIP ####[facility] [address] [place] [address] Lab Director: Ronald Pearce MD Bilirubin, Indirect 0.4 mg/dL Normal 0.0-1.0 [facility] Comment on above: Performed By: #### X LAV, LIVP, LIP ####[facility] [address] [place] [phone] Director: Ronald Pearce MD Bilirubin.indirect [Mass/Vol] 0.6 mg/dL High <0.3 [facility] Comment on above: Performed By: #### X LAV, LIVP, LIP ####[facility] [address] [place] [address] Lab Director: Ronald Pearce MD Protein [Mass/Vol] 5.7 g/dL Low 6.4-8.3 [facility] Comment on above: Performed By: #### X LAV, LIVP, LIP ####[facility] [address] [facility], [place] [id number] lab Director: Ronald Pearce MD Extra Lavender Tubeon 2022 Extra Lavender Tube Normal [facility] Comment on above: Performed By: #### L IVP, XLAV ####[facility] [address] [facility] [address], [place] [address] lab Director: Ronald Pearce MD FL CHOLANGIOGRAM [...] Danny Cole MD 03/23/23 Final result Normal [facility] Liver Profileon 03-23-2023 Albumin [Mass/Vol] 3.5 g/dL Normal 3.5-5.2 [facility] Comment on above: Performed By: #### L IVP, XLAV ####[facility] [address] [facility] [address], [place] [address] lab Director: Ronald Pearce MD Alkaline Phos 293 U/L High 35-104 [facility] Comment on above: Performed By: #### L IVP, XLAV ####[facility] [address] [place] [address] Lab Director: Ronald Pearce MD ALT [Catalytic activity/Vol] 111 U/L High 5-33 [facility] Comment on above: Performed By: #### L IVP, XLAV ####[facility] [address] [place] [phone] Director: Ronald Pearce MD AST [Catalytic activity/Vol] 43 U/L High <32 [facility] Comment on above: Performed By: #### L IVP, XLAV ####[facility] [address] [place] [address] Lab Director: Ronald Pearce MD Bilirubin [Mass/Vol] 2.6 mg/dL High 0.3-1.2 [facility] Comment on above: Performed By: #### L IVP, XLAV ####[facility] [address] [place] [address] Lab Director: Ronald Pearce MD Bilirubin, Indirect 0.8 mg/dL Normal 0.0-1.0 [facility] Comment on above: Performed By: #### L IVP, XLAV ####[facility] [address] [place] [address] Lab Director: Ronald Pearce MD Bilirubin.indirect [Mass/Vol] 1.8 mg/dL High <0.3 [facility] Comment on above: Performed By: #### L IVP, XLAV ####[facility] [address] [place] [address] Lab Director: Ronald Pearce MD Protein [Mass/Vol] 5.7 g/dL Low 6.4-8.3 [facility] Comment on above: Performed By: #### L IVP, XLAV ####[facility] [address] [place], [place] [address] lab Director: Ronald Pearce MD Surgical Pathology Reporton 03-23-2023 Surgical Pathology Report (NOTE) Path Number: [id number] -- Diagnosis -- A. GALLBLADDER AND CONTENTS, [...] lesions or periductal lymph nodes are identified. Technical Manager [employer] sections 1c. tm SM/tb1:03/24/2023 Microscopic Description Microscopic examination performed. Processing Lab: [address] [address] Interpretation Performed at [address] [address] SURGICAL PATHOLOGY CONSULTATION Patient Name: BELGICA HARPER Med Rec: [id number] [facility] [employer] ANATOMIC PATHOLOGY [facility]. [place], [place] [id number] Normal [facility] CBC with Diffon 03-22-2023 Abs. Basophil <0.03 Normal 0.00-0.20 [facility] Comment on above: Performed By: #### C DP, LIP, CMPX #### [facility] Lab [address] [place] [address] Charge Account Identification Clerk: Ronald Pearce MD #### TRIG #### [address] [address] Charge Account Identification Clerk: Elio Marley MD Abs.Imm.Granulocyte 0.03 k/uL Normal 0.00-0.30 [facility] Comment on above: Performed By: #### C DP, LIP, CMPX #### [facility] [address] [place] [address] Charge Account Identification Clerk: Ronald Pearce MD #### TRIG #### [address] [address] Charge Account Identification Clerk: Elio Marley MD Abs.Neutrophil (Seg) 6.89 k/uL Normal 1.50-8.10 [facility] Comment on above: Performed By: #### C DP, LIP, CMPX #### [facility] [address] [place] [address] Charge Account Identification Clerk: Ronald Pearce MD #### TRIG #### [address] [address] Charge Account Identification Clerk: Elio Marley MD Basophils/100 WBC (Bld) 0 % Normal 0-2 [facility] Comment on above: Performed By: #### C DP, LIP, CMPX #### [facility] [address] [place] [address] Charge Account Identification Clerk: Ronald Pearce MD #### TRIG #### [address] [address] Charge Account Identification Clerk: Elio Marley MD Eosinophils (Bld) [#/Vol] 0.07 10*3/uL Normal 0.00-0.44 [facility] Comment on above: Performed By: #### C DP, LIP, CMPX #### [facility] [address] [place] [address] Charge Account Identification Clerk: Ronald Pearce MD #### TRIG #### [address] [address] Charge Account Identification Clerk: Elio Marley MD Eosinophils/100 WBC (Bld) 1 % Normal 1-4 [facility] Comment on above: Performed By: #### C DP, LIP, CMPX #### [facility] Lab [address] [place] [address] Charge Account Identification Clerk: Ronald Pearce MD #### TRIG #### [address] [address] Charge Account Identification Clerk: Elio Marley MD Erythrocyte distribution width (RBC) [Ratio] 12.2 % Normal 11.8-14.4 [facility] Comment on above: Performed By: #### C DP, LIP, CMPX #### [facility] [place] [address] Charge Account Identification Clerk: Ronald Pearce MD #### TRIG #### [address] [address] Charge Account Identification Clerk: Elio Marley MD Hematocrit (Bld) [Volume fraction] 36.9 % Normal 36.3-47.1 [facility] Comment on above: Performed By: #### C DP, LIP, CMPX #### [facility] [place] [address] Charge Account Identification Clerk: Ronald Pearce MD #### TRIG #### [address] [address] Charge Account Identification Clerk: Elio Marley MD Hemoglobin (Bld) [Mass/Vol] 12.1 g/dL Normal 11.9-15.1 [facility] Comment on above: Performed By: #### C DP, LIP, CMPX #### [facility] [address] [place] [address] Charge Account Identification Clerk: Ronald Pearce MD #### TRIG #### [address] [address] Charge Account Identification Clerk: Elio Marley MD Immature granulocytes/100 WBC (Bld) 0 % Normal 0 [facility] Comment on above: Performed By: #### C DP, LIP, CMPX #### [facility] [address] [place] [address] Charge Account Identification Clerk: Ronald Pearce MD #### TRIG #### [address] [address] Charge Account Identification Clerk: Elio Marley MD Lymphocytes (Bld) [#/Vol] 1.62 10*3/uL Normal 1.10-3.70 [facility] Comment on above: Performed By: #### C DP, LIP, CMPX #### [facility] [address] [place] [address] Charge Account Identification Clerk: Ronald Pearce MD #### TRIG #### [address] [address] Charge Account Identification Clerk: Elio Marley MD Lymphocytes/100 WBC (Bld) 18 % Low 24-43 [facility] Comment on above: Performed By: #### C DP, LIP, CMPX #### [facility] [place] [address] Charge Account Identification Clerk: Ronald Pearce MD #### TRIG #### [address] [address] Charge Account Identification Clerk: Elio Marley MD MCH (RBC) [Entitic mass] 32.5 pg Normal 25.2-33.5 [facility] Comment on above: Performed By: #### C DP, LIP, CMPX #### [facility] [place] [address] Charge Account Identification Clerk: Ronald Pearce MD #### TRIG #### [address] [address] Charge Account Identification Clerk: Elio Marley MD MCHC (RBC) [Mass/Vol] 32.8 g/dL Normal 28.4-34.8 [facility] Comment on above: Performed By: #### C DP, LIP, CMPX #### [facility] [address] [place] [address] Charge Account Identification Clerk: Ronald Pearce MD #### TRIG #### [address] [address] Charge Account Identification Clerk: Elio Marley MD MCV (RBC) [Entitic vol] 99.2 fL Normal 82.6-102.9 [facility] Comment on above: Performed By: #### C DP, LIP, CMPX #### [facility] [address] [place] [address] Charge Account Identification Clerk: Ronald Pearce MD #### TRIG #### [address] [address] Charge Account Identification Clerk: Elio Marley MD Monocytes (Bld) [#/Vol] 0.57 10*3/uL Normal 0.10-1.20 [facility] Comment on above: Performed By: #### C DP, LIP, CMPX #### [facility] [address] [place] [address] Charge Account Identification Clerk: Ronald Pearce MD #### TRIG #### [address] [id number] Charge Account Identification Clerk: Elio Marley MD Monocytes/100 WBC (Bld) 6 % Normal 3-12 [facility] Comment on above: Performed By: #### C DP, LIP, CMPX #### [facility] [address] [place] [address] Charge Account Identification Clerk: Ronald Pearce MD #### TRIG #### [address] [phone] Charge Account Identification Clerk: Elio Marley MD Neutrophil (Seg) 75 % High 36-65 [facility] Comment on above: Performed By: #### C DP, LIP, CMPX #### [facility] [address] [place] [address] Charge Account Identification Clerk: Ronald Pearce MD #### TRIG #### [address] [phone] Charge Account Identification Clerk: Elio Marley MD NRBC Automated 0.0 per 100 WBC Normal 0.0 [facility] Comment on above: Performed By: #### C DP, LIP, CMPX #### [facility] [address] [place] [address] Charge Account Identification Clerk: Ronald Pearce MD #### TRIG #### [address] [id number] Charge Account Identification Clerk: Elio Marley MD Platelet mean volume (Bld) [Entitic vol] 10.7 fL Normal 8.1-13.5 [facility] Comment on above: Performed By: #### C DP, LIP, CMPX #### [facility] [address] [place] [address] Charge Account Identification Clerk: Ronald Pearce MD #### TRIG #### [address] [id number] Charge Account Identification Clerk: Elio Marley MD Platelets (Bld) [#/Vol] 188 10*3/uL Normal 138-453 [facility] Comment on above: Performed By: #### C DP, LIP, CMPX #### [facility] [place] [address] Charge Account Identification Clerk: Ronald Pearce MD #### TRIG #### [address] [address] Charge Account Identification Clerk: Elio Marley MD RBC (Bld) [#/Vol] 3.72 10*6/uL Low 3.95-5.11 [facility] Comment on above: Performed By: #### C DP, LIP, CMPX #### [facility] [address] [place] [address] Charge Account Identification Clerk: Ronald Pearce MD #### TRIG #### [address] [address] Charge Account Identification Clerk: Elio Marley MD WBC (Bld) [#/Vol] 9.2 10*3/uL Normal 3.5-11.3 [facility] Comment on above: Performed By: #### C DP, LIP, CMPX #### [facility] [address] [place] [address] Charge Account Identification Clerk: Ronald Pearce MD #### TRIG #### [address] [address] Charge Account Identification Clerk: Elio Marley MD Comp Metabolic Pr/rfx MGon 05-22-2022 Albumin [Mass/Vol] 3.5 g/dL Normal 3.5-5.2 [facility] Comment on above: Performed By: #### C DP, LIP, CMPX #### [facility] [address] [place] [address] Charge Account Identification Clerk: Ronald Pearce MD #### TRIG #### [address] [place] [address] Charge Account Identification Clerk: Elio Marley MD Alkaline Phos 157 U/L High 35-104 [facility] Comment on above: Performed By: #### C DP, LIP, CMPX #### [facility] [address] [place] [address] Charge Account Identification Clerk: Ronald Pearce MD #### TRIG #### [address] [address] Charge Account Identification Clerk: Elio Marley MD ALT [Catalytic activity/Vol] 131 U/L High 5-33 [facility] Comment on above: Performed By: #### C DP, LIP, CMPX #### [facility] [address] [place] [address] Charge Account Identification Clerk: Ronald Pearce MD #### TRIG #### [address] [address] Charge Account Identification Clerk: Elio Marley MD Anion gap [Moles/Vol] 11 mmol/L Normal 9-17 [facility] Comment on above: Performed By: #### C DP, LIP, CMPX #### [facility] [address] [place] [address] Charge Account Identification Clerk: Ronald Pearce MD #### TRIG #### [address] [address] Charge Account Identification Clerk: Elio Marley MD AST [Catalytic activity/Vol] 34 U/L High <32 [facility] Comment on above: Performed By: #### C DP, LIP, CMPX #### [facility] [address] [place] [address] Charge Account Identification Clerk: Ronald Pearce MD #### TRIG #### [address] [place] [address] Charge Account Identification Clerk: Elio Marley MD Bilirubin [Mass/Vol] 1.9 mg/dL High 0.3-1.2 [facility] Comment on above: Performed By: #### C DP, LIP, CMPX #### [facility] [address] [place] [address] Charge Account Identification Clerk: Ronald Pearce MD #### TRIG #### [address] [address] Charge Account Identification Clerk: Elio Marley MD BUN/CRE Ratio 17 Normal 9-20 [facility] Comment on above: Performed By: #### C DP, LIP, CMPX #### [facility] [address] [place] [address] Charge Account Identification Clerk: Ronald Pearce MD #### TRIG #### [address] [address] Charge Account Identification Clerk: Elio Marley MD Calcium [Mass/Vol] 8.1 mg/dL Low 8.6-10.4 [facility] Comment on above: Performed By: #### C DP, LIP, CMPX #### [facility] [address] [place] [address] Charge Account Identification Clerk: Ronald Pearce MD #### TRIG #### [address] [address] Charge Account Identification Clerk: Elio Marley MD Chloride [Moles/Vol] 105 mmol/L Normal 98-107 [facility] Comment on above: Performed By: #### C DP, LIP, CMPX #### [facility] [address] [place] [address] Charge Account Identification Clerk: Ronald Pearce MD #### TRIG #### [address] [address] Charge Account Identification Clerk: Elio Marley MD CO2 [Moles/Vol] 21 mmol/L Normal 20-31 [facility] Comment on above: Performed By: #### C DP, LIP, CMPX #### [facility] [address] [place] [address] Charge Account Identification Clerk: Ronald Pearce MD #### TRIG #### [address] [address] Charge Account Identification Clerk: Elio Marley MD Creatinine [Mass/Vol] 0.6 mg/dL Normal 0.5-0.9 [facility] Comment on above: Performed By: #### C DP, LIP, CMPX #### [facility] [address] [place] [address] Charge Account Identification Clerk: Ronald Pearce MD #### TRIG #### [address] [address] Charge Account Identification Clerk: Elio Marley MD GFR/1.73 sq M.predicted among non-blacks MDRD (S/P/Bld) [Vol rate/Area] mL/min/{1.73_m2} Normal >60 [facility] Comment on above: Result Comment: These results [...] By: #### C DP, LIP, CMPX #### [facility] [address] [place] [address] Charge Account Identification Clerk: Ronald Pearce MD #### TRIG #### [address] [place] [address] Charge Account Identification Clerk: Elio Marley MD Glucose [Mass/Vol] 75 mg/dL Normal 70-99 [facility] Comment on above: Performed By: #### C DP, LIP, CMPX #### [facility] [address] [place] [address] Charge Account Identification Clerk: Ronald Pearce MD #### TRIG #### [address] [address] Charge Account Identification Clerk: Elio Marley MD Potassium [Moles/Vol] 4.0 mmol/L Normal 3.7-5.3 [facility] Comment on above: Performed By: #### C DP, LIP, CMPX #### [facility] [address] [place] [address] Charge Account Identification Clerk: Ronald Pearce MD #### TRIG #### [address] [address] Charge Account Identification Clerk: Elio Marley MD Protein [Mass/Vol] 5.7 g/dL Low 6.4-8.3 [facility] Comment on above: Performed By: #### C DP, LIP, CMPX #### [facility] [address] [place] [address] Charge Account Identification Clerk: Ronald Pearce MD #### TRIG #### [address] [address] Charge Account Identification Clerk: Elio Marley MD Sodium [Moles/Vol] 137 mmol/L Normal 135-144 [facility] Comment on above: Performed By: #### C DP, LIP, CMPX #### [facility] [address] [place] [address] Charge Account Identification Clerk: Ronald Pearce MD #### TRIG #### [address] [place] [address] Charge Account Identification Clerk: Elio Marley MD Urea nitrogen [Mass/Vol] 10 mg/dL Normal 6-20 [facility] Comment on above: Performed By: #### C DP, LIP, CMPX #### [facility] [address] [place] [address] Charge Account Identification Clerk: Ronald Pearce MD #### TRIG #### [address] [address] Charge Account Identification Clerk: Elio Marley MD K (Potassium)on 03-22-2023 Potassium [Moles/Vol] 3.8 mmol/L Normal 3.7-5.3 [facility] Comment on above: Performed By: #### K #### [facility] [address] [place] [address] Charge Account Identification Clerk: Ronald Pearce MD Lipaseon 03-22-2023 Lipase [Catalytic activity/Vol] 198 U/L High 13-60 [facility] Comment on above: Performed By: #### C DP, LIP, CMPX #### [facility] [address] [place] [address] Charge Account Identification Clerk: Ronald Pearce MD #### TRIG #### [address] [address] Charge Account Identification Clerk: Elio Marley MD MRI ABDOMEN WO CONTRAST [...] Daniel Hooker MD 03/22/23 Final result Normal [facility] Triglycerideson 03-22-2023 Triglyceride [Mass/Vol] 102 mg/dL Normal 0-149 [facility] Comment on above: Result Comment: Triglyceride Guidelines: <150 Desirable 150-199 Borderline 200-499 High >499 Very high Based on AHA Guidelines for fasting triglyceride, January 2012. Performed By: #### C DP, LIP, CMPX #### [facility] [address] [place], [place] [address] Charge Account Identification Clerk: Ronald Pearce MD #### TRIG #### [facility] [address] [place], [place] [address] Charge Account Identification Clerk: MD Lincoln Gordillo 03-20-2023 ISABELN Telephone (FVPRAD) BELGICA HARPER ([id number]) 1990 F Date Time Provider Department 03/20/23 [...] Status:Closed by LAWRENCE CAMPUZANO on 03/20/23 Normal [facility] DENY Antinuclear Antibodieson 10-26-2022 Antinuclear Abs, IFA Negative Normal . [facility] Comment on above: Order Comment: Reaso n for Exam Elevated liver enzymes Result Comment: Nega tive <1:80 Borderline 1:80 Positive >1:80 ICAP nomenclature: AC-0 For more information about Hep-2 cell patterns use ANApatterns.org, the official website for the International Consensus on Antinuclear Antibody (DENY) Patterns (ICAP). Performed at: - [facility] [place] [id number] Charge Account Identification Clerk: Demarcus Moreno PhD, Phone: [phone] Performed By: #### A NA, HEMOCHROM, IGG, MITOM2, ALPHA PHEN, HAABT, SMAB, CERULOP, L-K MICRO #### [facility] , #### CONST[place]INO #### [facility] [address] [place] [address] Wughe-7-Colwcwygzly Phenotyp kwasi 10-26-2022 Alpha 1 Anti-Trypsin 121 mg/dL Normal 100-188 [facility] Comment on above: Order Comment: Reaso n for Exam Elevated liver enzymes Performed By: #### A NA, HEMOCHROM, IGG, MITOM2, ALPHA PHEN, HAABT, SMAB, CERULOP, L-K MICRO #### [facility] , #### [place] #### [facility] [address] [place] [address] Phenotype (P1) MM Normal . [facility] Comment on above: Order Comment: Reaso [...] Ranges used to confirm phenotype. Performed at: [address] [id number] Charge Account Identification Clerk: Demarcus Moreno PhD, Phone: [phone] Performed at: [address] [id number] Charge Account Identification Clerk: Yuli Callejas MD, Phone: [phone] Performed By: #### A NA, HEMOCHROM, IGG, MITOM2, ALPHA PHEN, HAABT, SMAB, CERULOP, L-K MICRO #### [facility] , #### [place] #### [address] Ceruloplasminon 10-26-2022 Ceruloplasmin 27.2 mg/dL Normal 19.0-39.0 [facility] Comment on above: Order Comment: Reaso n for Exam Elevated liver enzymes Result Comment: Perf ormed at: [address] [id number] Charge Account Identification Clerk: Demarcus Moreno PhD, Phone: [phone] PERFORMED BY: [place] [address] PATHOLOGIST PULLER OVER ILIANA CAMP M.D. Performed By: #### A NA, HEMOCHROM, IGG, MITOM2, ALPHA PHEN, HAABT, SMAB, CERULOP, L-K MICRO #### [facility] , #### [place] #### [address] Ferritinon 10-26-2022 Ferritin [Mass/Vol] 106.5 ng/mL Normal 11.0-306.8 [facility] Comment on above: Order Comment: pt is fasting Reason for Exam Elevated liver enzymes Result Comment: PERF ORMED BY: [place] [address] PATHOLOGIST PULLER OVER [place]IANA CAMP M.D. Performed By: #### A NA, HEMOCHROM, IGG, MITOM2, ALPHA PHEN, HAABT, SMAB, CERULOP, L-K MICRO #### [facility] , #### [place] #### [address] Ferritin [Mass/volume] in Se rum or PlasmaOrdered By: Erwin Hylton on 10-26-2022 Ferritin [Mass/Vol] 106.5 ng/mL 11.0-306.8 [facility] Hepatitis A Antibody Totalon 10-26-2022 Hepatitis A Antibody Total Negative Normal Negative [facility] Comment on above: Order Comment: Reaso n for Exam Elevated liver enzymes Result Comment: Perf ormed at: [facility] [address] [id number] Charge Account Identification Clerk: Demarcus Moreno PhD, Phone: [phone] PERFORMED BY: [place] [address] PATHOLOGIST PULLER OVER [place]IANA CAMP M.D. Performed By: #### A NA, HEMOCHROM, IGG, MITOM2, ALPHA PHEN, HAABT, SMAB, CERULOP, L-K MICRO #### [facility] , #### [place] #### [address] Hereditary Hemochromatosis,D NAon 10-26-2022 Hereditary Hemochromatosis Normal . [facility] Comment on above: Order Comment: Reaso n for Exam Elevated liver enzymes Result Comment: Resu lt: c.845G>A (p.Kpi342Cgw) - Not Detected c.187C>G (p.Lap25Glg) - Not Detected c.193A>T (p.Xht63Etf) - Not Detected Not associated with increased [...] for patients who are homozygous for c.845G>A (p.Sjb270Wmn) and have yet to experience clinical symptoms. Comments: The most common HFE variants associated with hereditary hemochromatosis are c.845G>A (p.Ojv463Kyj), c.187C>G (p.Lrn65Bqk), c.193A>T (p.Ffb38Jrg). While patients homozygous for c.845G>A (p.Fpe933Sbq) are the most likely to present clinical symptoms, less than 10% develop clinically significant iron overload with tissue and organ damage. Genetic counseling is recommended to discuss the potential clinical implications of positive results, as well as recommendations for testing family members. Genetic Coordinators are available for health care providers to discuss results at [phone] Test Details: Three variants analyzed: c.845G>A (p.Hwy203Wpa), commonly referred to as C282Y c.187C>G (p.Isp73Kkh), commonly referred to as H63D c.193A>T (p.Ubl97Omp), commonly referred to as S65C Methods/Limitations: DNA [...] developed and its performance characteristics determined by [employer]. It has not been cleared or approved by the Food and Drug Administration. References: Brodie BR, Yoav PC, Deborah KV, Raymond LW, Ramsey ; [place] [employer] for the [employer] of Liver Diseases. Diagnosis and management of hemochromatosis: 2011 practice guideline by the [place] [employer] the [employer] Liver Diseases. Hepatology. 2011 Oct;54(1):328-43. doi: 10.1002/hep.09178. PMID: 24075592; PMCID: [id number]. Cora G, Olegario P, Fabio DW, Tabatha H, Love O, Zev S, Vazquez I, Kofi M, Sunitha S. [facility] best practice guidelines for the molecular genetic diagnosis of hereditary hemochromatosis (HH). Eur J Hum Margaret. 2016 Jul;24(4):479-95. doi: 10.1038/ejhg.2015.128. Epub 2014Oct 29. PMID: 85769952; PMCID: [id number]. Performed By: #### A NA, HEMOCHROM, IGG, MITOM2, ALPHA PHEN, HAABT, SMAB, CERULOP, L-K MICRO #### [facility] , #### [place] #### [place] [address] [place] Reviewed by: Dm Reyna, PhD Normal . [facility] Comment on above: Order Comment: Reaso n for Exam Elevated liver enzymes Result Comment: Perf ormed at: TG - [facility]P [address] [facility], [facility], [place] [id number] Charge Account Identification Clerk: Vivian Kelley [facility], Phone: [phone] PERFORMED BY: [place] [address] PATHOLOGIST PULLER OVER [place]IANA CAMP M.D. Performed By: #### A NA, HEMOCHROM, IGG, MITOM2, ALPHA PHEN, HAABT, SMAB, CERULOP, L-K MICRO #### [facility] , #### [place] #### [address] Immunoglobulin Harvey Immunoglobulin G 865 mg/dL Normal 586-1602 [facility] Comment on above: Order Comment: Reaso n for Exam Elevated liver enzymes Result Comment: Perf ormed at: - [facility] [address] [id number] Charge Account Identification Clerk: Demarcus Moreno PhD, Phone: [phone] Performed By: #### A NA, HEMOCHROM, IGG, MITOM2, ALPHA PHEN, HAABT, SMAB, CERULOP, L-K MICRO #### [facility] , #### [place] #### [address] Liver-Kidney Microsomal Abon 10-26-2022 Liver-Kidney Microsomal Ab <1.0 Normal 0.0-20.0 [facility] Comment on above: Order Comment: Reaso [...] MICRO #### [facility] , #### [place] #### [facility] [address] [place] [address] Mitochondrial (M2) Antibodyo n 10-26-2022 Mitochondrial (M2) Antibody <20.0 Normal 0.0-20.0 [facility] Comment on above: Order Comment: Reaso n for Exam Elevated liver enzymes Result Comment: Nega tive 0.0 - 20.0 Equivocal 20.1 - 24.9 Positive >24.9 Mitochondrial (M2) Antibodies are found in 90-96% of patients with primary biliary cirrhosis. Performed at: [address] [id number] Charge Account Identification Clerk: Demarcus Moreno PhD, Phone: [phone] Performed By: #### A NA, HEMOCHROM, IGG, MITOM2, ALPHA PHEN, HAABT, SMAB, CERULOP, L-K MICRO #### [facility] , #### [place] #### [address] Smooth Muscle Antibodyon Smooth Muscle Antibody 4 Normal 0-19 [facility] Comment on above: Order Comment: Reaso [...] MICRO #### [facility] , #### [place] #### [address] US liveron 10-26-2022 liver [facility] [place] [address] Ultrasound Report Signed Patient: Belgica Harper MR#: [id number] : 1990 Acct:[id number] Age/Sex: 32 / F ADM Date: 10/26/22 Loc: Room: Type: [facility] Attending Dr: Erwin Hylton MD Ordering Provider: [...] Perdomo Jr., D.O.10/26/2022 3:24 PM Dictation Location: [place] [address] Tech: Francia Lopez Transcribed By: GRANT 10/26/22 152 Dictated By: Alexandro Perdomo Jr, DO 10/26/22 152 Signed By: 10/26/22 1524 Normal [facility] ACETYLCHOLINE REC BINDING AB on 10-17-2022 ACETYLCHOLINE BINDING, QUAL Negative Normal Negative [facility] Comment on above: Order Comment: Rl basilio Type: BLOOD SPECIMEN Ordering Facility: [facility] Address: [address] [place] [address] Result Comment: Anti -acetylcholine receptor binding antibody test is used as an aid in diagnosis of myasthenia gravis. A negative result cannot exclude myasthenia gravis. Clinical correlation is required. Performed By: #### 3 016-3, 2156-09 #### [facility] CLIA [id number] [address] [place] [address] [place] Acetylcholine receptor binding Ab (S) [Moles/Vol] <0.02 Normal <0.21 [facility] Comment on above: Order Comment: Rl basilio Type: BLOOD SPECIMEN Ordering Facility: [facility] Address: [address] [place] [address] Performed By: #### 3 016-3, 2156-09 #### [facility] CLIA [id number] [facility] [place] [address] [place] AMINO ACIDS, PLASMA W/ CONSU LTATIONon 10-17-2022 Alanine [Moles/Vol] 310 umol/L Normal 177-583 [facility] Comment on above: Order Comment: Rl basilio Type: BLOOD SPECIMEN Ordering Facility: [facility] Address: [address] [place] [address] Performed By: #### 3 016-3, 2156-09 #### [facility] CLIA [id number] [facility]. [place], [place] [id number] [place] [address] [place] Alloisoleucine [Moles/Vol] 2 umol/L Normal 0-2 [facility] Comment on above: Order Comment: Speci men Type: BLOOD SPECIMEN Ordering Facility: [facility] Address: [address] [place] [address] Performed By: #### 3 016-, 2156-09 #### [facility] IA [id number] [facility] [place] [address] [place] Alpha aminoadipate [Moles/Vol] <1 Normal 0-6 [facility] Comment on above: Order Comment: Speci men Type: BLOOD SPECIMEN Ordering Facility: [facility] Address: [address] [place] [address] Performed By: #### 3 016-, 2156-09 #### [facility] IA [id number] [address] [place], [place] [id number] [address] AMINO ACID CONSULTATION, PLASMA Normal [facility] Comment on above: Order Comment: Speci men Type: BLOOD SPECIMEN Ordering Facility: [facility] Address: [address] [place] [address] Result Comment: This plasma amino acid analysis shows no significant abnormalities. Reference intervals from Isacc E, Len MG, Ktae FANTASMA, and Christopher DK: Biochemical Genetics: A Laboratory Manual, Copyright 1989 by [employer] Reference intervals not established for some amino acids. This test was developed and its performance characteristics determined by [facility]'s Fuad JRajesh [facility] Pathology and Laboratory Medicine [place] ([facility]). It has not been cleared or approved by the FDA. -[facility] is regulated under CLIA as qualified to perform high complexity testing. This test is used for clinical purposes. It should not be regarded as investigational or for research. Performed By: #### 3 016-3, 2156-09 #### [facility] IA [id number] [address] [place] [address] [place] AMINO ACIDS REVIEW, PLASMA Reviewed by Patrick Proctor MD, Ph.D ([id number]) Normal [facility] Comment on above: Order Comment: Speci men Type: BLOOD SPECIMEN Ordering Facility: [facility] Address: [place] [address] Performed By: #### 3 016-3, 1987-08, 2156-09 #### [facility] CLIA [id number] [address] [place] [address] [place] Arginine [Moles/Vol] 77 umol/L Normal 15-128 [facility] Comment on above: Order Comment: Speci men Type: BLOOD SPECIMEN Ordering Facility: [facility] Address: [place] [address] Performed By: #### 3 016-3, 1987-08, 2156-09 #### [facility] CLIA [id number] [address] [place] [address] [place] Asparagine [Moles/Vol] 44 umol/L Normal 35-74 [facility] Comment on above: Order Comment: Speci men Type: BLOOD SPECIMEN Ordering Facility: [facility] Address: [place] [address] Performed By: #### 3 016-3, 1987-08, 2156-09 #### [facility] CLIA [id number] [address] [place] [address] [place] Aspartate [Moles/Vol] 2 umol/L Normal 1-25 [facility] Comment on above: Order Comment: Speci men Type: BLOOD SPECIMEN Ordering Facility: [facility] Address: [address] Performed By: #### 3 016-3, 1987-08, 2156-09 #### [facility] CLIA [id number] [address] [place] [address] [place] Citrulline [Moles/Vol] 25 umol/L Normal 12-55 [facility] Comment on above: Order Comment: Speci men Type: BLOOD SPECIMEN Ordering Facility: [facility] Address: [address] [place] [address] Performed By: #### 3 016-3, 1987-08, 2156-09 #### [facility] CLIA [id number] [address] [place] [address] [place] Cystine [Moles/Vol] 33 umol/L Normal 5-82 [facility] Comment on above: Order Comment: Speci men Type: BLOOD SPECIMEN Ordering Facility: [facility] Address: [address] [place], [place] [address] Performed By: #### 3 016-3, 2156-09 #### [facility] CLIA [id number] [address] [place] [address] [place] Glutamate [Moles/Vol] 31 umol/L Normal 10-131 [facility] Comment on above: Order Comment: Speci men Type: BLOOD SPECIMEN Ordering Facility: [facility] Address: [address] [place] [address] Performed By: #### 3 016-3, 2156-09 #### [facility] IA [id number] [address] [place] [address] [place] Glutamine [Moles/Vol] 652 umol/L Normal 205-756 [facility] Comment on above: Order Comment: Speci men Type: BLOOD SPECIMEN Ordering Facility: [facility] Address: [address] [place] [address] Performed By: #### 3 016-3, 2156-09 #### [facility] CLIA [id number] [address] [place] [address] [place] Glycine [Moles/Vol] 351 umol/L Normal 151-490 [facility] Comment on above: Order Comment: Speci men Type: BLOOD SPECIMEN Ordering Facility: [facility] Address: [address] [place] [address] Performed By: #### 3 016-3, 2156-09 #### [facility] CLIA [id number] [address] [place] [address] [place] Histidine [Moles/Vol] 82 umol/L Normal 72-124 [facility] Comment on above: Order Comment: Speci men Type: BLOOD SPECIMEN Ordering Facility: [facility] Address: [address] Performed By: #### 3 016-3, 2156-09 #### [facility] CLIA [id number] [address] [place] [address] [place] Hydroxylysine [Moles/Vol] <1 High <=0 [facility] Comment on above: Order Comment: Speci men Type: BLOOD SPECIMEN Ordering Facility: [facility] Address: [address] [place] [address] Performed By: #### 3 016-3, 2156-09 #### [facility] IA [id number] [address] [place] [address] [place] Hydroxyproline [Moles/Vol] 9 umol/L Normal 0-53 [facility] Comment on above: Order Comment: Speci men Type: BLOOD SPECIMEN Ordering Facility: [facility] Address: [address] [place] [address] Performed By: #### 3 016-3, 2156-09 #### [facility] IA [id number] [address] [place] [address] [place] Isoleucine [Moles/Vol] 66 umol/L Normal 30-108 [facility] Comment on above: Order Comment: Speci men Type: BLOOD SPECIMEN Ordering Facility: [facility] Address: [address] Performed By: #### 3 016-3, 1987-08, 2156-09 #### [facility] CLIA [id number] [address] [place] [address] [place] Leucine [Moles/Vol] 109 umol/L Normal 72-201 [facility] Comment on above: Order Comment: Speci men Type: BLOOD SPECIMEN Ordering Facility: [facility] Address: [address] [place] [address] Performed By: #### 3 016-3, 2156-09 #### [facility] CLIA [id number] [address] [place] [address] [place] Lysine [Moles/Vol] 220 umol/L Normal 116-296 [facility] Comment on above: Order Comment: Speci men Type: BLOOD SPECIMEN Ordering Facility: [facility] Address: [address] [place] [address] Performed By: #### 3 016-3, 1987-08, 2156-09 #### [facility] CLIA [id number] [address] [place] [address] [place] Methionine [Moles/Vol] 20 umol/L Normal 10-42 [facility] Comment on above: Order Comment: Speci men Type: BLOOD SPECIMEN Ordering Facility: [facility] Address: [address] [place] [address] Performed By: #### 3 016-3, 2156-09 #### [facility] IA [id number] [address] [place] [address] [place] Ornithine [Moles/Vol] 64 umol/L Normal 48-195 [facility] Comment on above: Order Comment: Speci men Type: BLOOD SPECIMEN Ordering Facility: [facility] Address: [address] [place], [place] [address] Performed By: #### 3 016-3, 2156-09 #### [facility] IA [id number] [address] [place] [address] [place] Phenylalanine [Moles/Vol] 42 umol/L Normal 35-85 [facility] Comment on above: Order Comment: Speci men Type: BLOOD SPECIMEN Ordering Facility: [facility] Address: [address] [place], [place] [address] Performed By: #### 3 016-3, 2156-09 #### [facility] IA [id number] [address] [place] [address] [place] Proline [Moles/Vol] 187 umol/L Normal 97-329 [facility] Comment on above: Order Comment: Speci men Type: BLOOD SPECIMEN Ordering Facility: [facility] Address: [address] [place] [address] Performed By: #### 3 016-3, 1987-08, 2156-09 #### [facility] CLIA [id number] [address] [place] [address] [place] Sarcosine [Moles/Vol] <1 High <=0 [facility] Comment on above: Order Comment: Speci men Type: BLOOD SPECIMEN Ordering Facility: [facility] Address: [address] [place] [address] Performed By: #### 3 016-3, 1987-08, 2156-09 #### [facility] IA [id number] [address] [place] [address] [place] Serine [Moles/Vol] 107 umol/L Normal 58-181 [facility] Comment on above: Order Comment: Speci men Type: BLOOD SPECIMEN Ordering Facility: [facility] Address: [address] [place] [address] Performed By: #### 3 016-3, 1987-08, 2156-09 #### [facility] IA [id number] [address] [place] [address] [place] Taurine [Moles/Vol] 46 umol/L Low 54-210 [facility] Comment on above: Order Comment: Speci men Type: BLOOD SPECIMEN Ordering Facility: [facility] Address: [address] [place] [address] Performed By: #### 3 016-3, 1987-08, 2156-09 #### [facility] IA [id number] [address] [place] [address] [place] Threonine [Moles/Vol] 147 umol/L Normal 60-225 [facility] Comment on above: Order Comment: Speci men Type: BLOOD SPECIMEN Ordering Facility: [facility] Address: [address] [place] [address] Performed By: #### 3 016-3, 1987-08, 2156-09 #### [facility] IA [id number] [address] [place] [address] [place] Tyrosine [Moles/Vol] 51 umol/L Normal 34-112 [facility] Comment on above: Order Comment: Speci men Type: BLOOD SPECIMEN Ordering Facility: [facility] Address: [address] [place] [address] Performed By: #### 3 016-3, 2156-09 #### [facility] CLIA [id number] [address] [place] [address] [place] Valine [Moles/Vol] 199 umol/L Normal 119-336 [facility] Comment on above: Order Comment: Speci men Type: BLOOD SPECIMEN Ordering Facility: [facility] Address: [address] [place] [address] Performed By: #### 3 016-3, 2156-09 #### [facility] IA [id number] [address] [place] [address] [place] CARNITINE FREE/TOTAL, PLASMA on 10-17-2022 C0 [Moles/Vol] 27 umol/L Normal 22-54 [facility] Comment on above: Order Comment: Speci men Type: BLOOD SPECIMEN Ordering Facility: [facility] Address: [address] [place] [address] Performed By: #### C ARNPL #### [facility] CLIA [id number] [address] [facility] [place] [address] [place] C0/Total carnitine [Molar fraction] 0.675 Low 0.700-0.900 [facility] Comment on above: Order Comment: Speci men Type: BLOOD SPECIMEN Ordering Facility: [facility] Address: [address] [place] [address] Result Comment: NOTE : The determination of [...] determined by the Pathology and Laboratory Medicine [place] at the [facility]. The U.S. Food and Drug Administration has not approved or cleared this test, however, FDA clearance or approval is not currently required for clinical use. Performed By: #### C WILLIAMPL #### [facility] CLIA [id number] [address] [place] [address] [place] Carnitine [Moles/Vol] 40 umol/L Normal 27-68 [facility] Comment on above: Order Comment: [facility] Type: BLOOD SPECIMEN Ordering Facility: [facility] Address: [address] [place] [address] Performed By: #### C WILLIAMPL #### [facility] CLIA [id number] [address] [place] [address] [place] CK SerPl-cCncon 10-17-2022 CK [Catalytic activity/Vol] 50 U/L Normal 42-196 [facility] Comment on above: Order Comment: R[facility] Type: BLOOD SPECIMEN Ordering Facility: [facility] Address: [address] [place] [address] Performed By: #### 3 016-3, 1987-08, 2156-09 #### [facility] CLIA [id number] [address] [place] [address] [place] CRP SerPl-mCncon 10-17-2022 CRP [Mass/Vol] 0.6 mg/dL Normal <0.9 [facility] Comment on above: Order Comment: Rl basilio Type: BLOOD SPECIMEN Ordering Facility: [facility] Address: [address] [place] [address] Performed By: #### 3 016-3, 2156-09 #### [facility] CLIA [id number] [address] [place] [address] [place] CYTOKINE PANEL 13, SERUMon 0 10-17-2022 INTERFERON GAMMA <4.2 Normal <=4.2 Lisa stein Comment on above: Order Comment: Speci men Type: BLOOD SPECIMEN Ordering Facility: [facility] Address: [address] [place] [address] Performed By: #### 3 016-3, 2156-09 #### [facility] CLIA [id number] [address] [place] [address] [place] INTERLEUKIN 1 BETA <6.5 Normal <=6.7 [facility] Comment on above: Order Comment: Speci men Type: BLOOD SPECIMEN Ordering Facility: [facility] Address: [address] [place] [address] Performed By: #### 3 3, 2156-09 #### [facility] CLIA [id number] [address] [place] [address] [place] INTERLEUKIN 10 3.2 pg/mL High <=2.8 [facility] Comment on above: Order Comment: Speci men Type: BLOOD SPECIMEN Ordering Facility: [facility] Address: [address] [place], [place] [address] Performed By: #### 3 016-3, 2156-09 #### [facility] CLIA [id number] [address] [place] [address] [place] INTERLEUKIN 12 <1.9 Normal <=1.9 [facility] Comment on above: Order Comment: Speci men Type: BLOOD SPECIMEN Ordering Facility: [facility] Address: [address] [place] [address] Performed By: #### 3 016-3, 2156-09 #### [facility] CLIA [id number] [address] [place] [address] [place] INTERLEUKIN 13 <1.7 Normal <=2.3 [facility] Comment on above: Order Comment: Speci men Type: BLOOD SPECIMEN Ordering Facility: [facility] Address: [address] [place] [address] Performed By: #### 3 016-3, 1987-08, 2156-09 #### [facility] CLIA [id number] [address] [place] [address] [place] INTERLEUKIN 17 <1.4 Normal <=1.4 [facility] Comment on above: Order Comment: Speci men Type: BLOOD SPECIMEN Ordering Facility: [facility] Address: [address] [place] [address] Performed By: #### 3 016, 1987-08, 2156-09 #### [facility] CLIA [id number] [address] [place], [place] [id number] [place] [address] [place] INTERLEUKIN 2 <2.1 Normal <=2.1 [facility] Comment on above: Order Comment: Speci men Type: BLOOD SPECIMEN Ordering Facility: [facility] Address: [address] [place] [address] Performed By: #### 3 3, 1987-08, 2156-09 #### [facility] CLIA [id number] [address] [place] [address] [place] INTERLEUKIN 4 (INT4) <2.2 Normal <=2.2 [facility] Comment on above: Order Comment: Speci men Type: BLOOD SPECIMEN Ordering Facility: [facility] Address: [address] [address] Performed By: #### 3 016-3, 1987-08, 2156-09 #### [facility] CLIA [id number] [address] [place], [place] [id number] [place] [address] [place] INTERLEUKIN 5 <2.1 Normal <=2.1 [facility] Comment on above: Order Comment: Speci men Type: BLOOD SPECIMEN Ordering Facility: [facility] Address: [address] [address] Performed By: #### 3 016-3, 2156-09 #### [facility] CLIA [id number] [address] [place] [address] [place] INTERLEUKIN 6 <2.0 Normal <=2.0 [facility] Comment on above: Order Comment: Speci men Type: BLOOD SPECIMEN Ordering Facility: [facility] Address: [address] [place] [address] Performed By: #### 3 , 2156-09 #### [facility] CLIA [id number] [address] [place] [address] [place] INTERLEUKIN 8 <3.0 Normal <=3.0 [facility] Comment on above: Order Comment: Speci men Type: BLOOD SPECIMEN Ordering Facility: [facility] Address: [address] [place] [address] Performed By: #### 3 , 2156-09 #### [facility] CLIA [id number] [address] [place], [place] [id number] [place] [address] [place] INTERLEUKIN-2 RECEPTOR 355.4 pg/mL Normal 175.3-858.2 [facility] Comment on above: Order Comment: Speci men Type: BLOOD SPECIMEN Ordering Facility: [facility] Address: [address] [place] [address] Performed By: #### 3 , 2156-09 #### [facility] CLIA [id number] [place] [address] [place] TUMOR NECROSIS FACTOR - ALPHA 1.9 pg/mL Normal <=7.2 [facility] Comment on above: Order Comment: Speci men Type: BLOOD SPECIMEN Ordering Facility: [facility] Address: [address] [place] [address] Result Comment: INTE RPRETIVE INFORMATION: Cytokines Results are used to understand the pathophysiology of immune, infectious, or inflammatory disorders, or may be used for research purposes. This test was developed and its performance characteristics determined by [employer]. It has not been cleared or approved by the [place] Food and Drug Administration. This test was performed in a CLIA certified laboratory and is intended for clinical purposes. Performed By: [employer] [address] [place] [address] Kitchen Chef: Terry Jacome MD, PhD Performed By: #### 3 016-3, 1987-08, 2156-09 #### [facility] CLIA [id number] [facility] [place] [address] [place] ESR Westergren method (Bld) [Velocity]on 10-17-2022 ESR (Bld) [Velocity] 5 mm/h Normal 0-20 [facility] Comment on above: Order Comment: [facility] Type: BLOOD SPECIMEN Ordering Facility: [facility] Address: [address] [address] Performed By: #### 4 537-7 #### [facility] CLIA [id number] [address] [facility] DESK [id number] [place] ESTROGEN FRACTION BLon 10-17 ESTRADIOL 238.7 pg/mL Normal [facility] Comment on above: Order Comment: [facility] Type: BLOOD SPECIMEN Ordering Facility: [facility] Address: [address] [address] Result Comment: REFE RENCE INTERVAL: Estradiol by Manager User Interface For a complete set of all established reference intervals, refer to [employer]/Tests/Pub/[id number]. This test was developed and its performance characteristics determined by [employer]. It has not been cleared or approved by the [place] Food and Drug Administration. This test was performed in a CLIA certified laboratory and is intended for clinical purposes. Performed By: #### 3 016-3, 1987-08, 2156-09 #### [facility] CLIA [id number] [address] [facility] [place] [address] [place] ESTROGENS TOTAL 354.8 pg/mL Normal [facility] Comment on above: Order Comment: [facility] Type: BLOOD SPECIMEN Ordering Facility: [facility] Address: [address] [address] Result Comment: Refe rence interval of estrogens (pg/mL) Estrone Estradiol Total Estrogens Early follicular <150.0 30.0-100.0 30.0-250.0 Late follicular 100.0-250.0 100.0-400.0 200.0-650.0 Luteal <200.0 50.0-150.0 50.0-350.0 Post-menopausal 3.0-32.0 2.0-21.0 5.0-52.0 REFERENCE INTERVAL: Estrogens Total Calculation For a complete set of all established reference intervals, refer to [employer]/Tests/Pub/[id number]. Performed By: [employer] [address] [place] [address] Kitchen Chef: Terry Jacome MD, PhD Performed By: #### 3 016-3, 1987-08, 2156-09 #### [facility] CLIA [id number] [place] ESTRONE 116.1 pg/mL Normal [facility] Comment on above: Order Comment: Speci men Type: BLOOD SPECIMEN Ordering Facility: [facility] Address: [address] [place] [address] Result Comment: INTERPRETIVE INFORMATION: Estrone by Manager User Interface For a complete set of all established reference intervals, refer to [employer]/Tests/Pub/[id number]. This test was developed and its performance characteristics determined by [employer]. It has not been cleared or approved by the [place] Food and Drug Administration. This test was performed in a CLIA certified laboratory and is intended for clinical purposes. Performed By: #### 3 016-3, 1987-08, 2156-09 #### [facility] CLIA [id number] [address] [place] [address] [place] GAD65 Ab Ser-aCncon 10-18-19 23 Glutamate decarboxylase 65 Ab Qn (S) <5.0 Normal <=5.0 [facility] Comment on above: Order Comment: Speci men Type: BLOOD SPECIMEN Ordering Facility: [facility] Address: [address] [place] [address] Result Comment: Anti -glutamic acid decarboxylase antibody [...] Performed By: #### 3 016-3, 2156-09 #### [facility] CLIA [id number] 10968 [facility]. [place], [place] [id number] [place] [address] [place] Glutamate decarboxylase 65 A b Qn (S)on 10-17-2022 GLUTAMIC ACID DECARBOXYLAS AB QUALITATIVE Negative Normal Negative [facility] Comment on above: Order Comment: Rl basilio Type: BLOOD SPECIMEN Ordering Facility: [facility] Address: [address] [place] [address] Performed By: #### 3 016-3, 2156-09 #### [facility] CLIA [id number] [address] [facility] [place] [address] [place] HbA1c (Bld)on 10-17-2022 Average glucose Estimated from glycated hemoglobin (Bld) [Mass/Vol] 88 mg/dL Normal [facility] Comment on above: Order Comment: [facility] Type: BLOOD SPECIMEN Ordering Facility: [facility] Address: [address] [place] [address] Result Comment: eAG: (Estimated average glucose) is a calculated value from HgbA1c and is administrative representative of the average blood glucose level in the last 2-3 month period. Performed By: #### 3 016-3, 2156-09 #### [facility] CLIA [id number] [address] [place] HbA1c (Bld) [Mass fraction] 4.7 % Normal 4.3-5.6 [facility] Comment on above: Order Comment: [facility] Type: BLOOD SPECIMEN Ordering Facility: [facility] Address: [address] [place], [place] [address] Result Comment: Amer [place] Diabetes Association guidelines indicate that patients with HgbA1c in the range 5.7-6.4% are at increased risk for development of diabetes, and intervention by lifestyle modification may be beneficial. HgbA1c greater or equal to 6.5% is considered diagnostic of diabetes. Performed By: #### 3 016-3, 1987-08, 2156-09 #### [facility] CLIA [id number] [address] [place] [address] [place] IgA SerPl-mCncon 10-17-2022 IgA [Mass/Vol] 169 mg/dL Normal 70-400 [facility] Comment on above: Order Comment: Speci men Type: BLOOD SPECIMEN Ordering Facility: [facility] Address: [address] [place] [address] Performed By: #### 3 016-3, 1987-08, 2156-09 #### [facility] CLIA [id number] [address] [place] [address] [place] IgG SerPl-mCncon 10-17-2022 IgG [Mass/Vol] 932 mg/dL Normal 700-1600 [facility] Comment on above: Order Comment: Speci men Type: BLOOD SPECIMEN Ordering Facility: [facility] Address: [address] [place] [address] Performed By: #### 3 016-3, 1987-08, 2156-09 #### [facility] CLIA [id number] [address] [place] [address] [place] IgM SerPl-mCncon 10-17-2022 IgM [Mass/Vol] 199 mg/dL Normal 40-230 [facility] Comment on above: Order Comment: Speci men Type: BLOOD SPECIMEN Ordering Facility: [facility] Address: [address] [place] [address] Performed By: #### 3 016-3, 1987-08, 2156-09 #### [facility] CLIA [id number] [address] [place] [address] [place] LDH SerPl-cCncon 10-17-2022 LDH [Catalytic activity/Vol] 160 U/L Normal 135-214 [facility] Comment on above: Order Comment: Speci men Type: BLOOD SPECIMEN Ordering Facility: [facility] Address: [address] [place] [address] Performed By: #### 3 016-3, 1987-, 2156- #### [facility] CLIA [id number] [address] [place] [address] [place] ORGANIC ACIDS UR, QUANT W/CO NSULTon 10-17-2022 2-Hydroxyglutarate/C reatinine (U) [Molar ratio] 3.6 umol/mmolCr Normal 0.6-17.7 [facility] Comment on above: Order Comment: Speci men Type: URINE SPECIMEN Ordering Facility: [facility] Address: [address] [place] [address] Performed By: #### L [id number] #### [facility] [place] [id number] [address] [place] [address] [place] 2-Hydroxyisovalerate /Creatinine (U) [Molar ratio] <0.1 Normal 0.0-0.1 [facility] Comment on above: Order Comment: Speci men Type: URINE SPECIMEN Ordering Facility: [facility] Address: [address] Performed By: #### L [id number] #### [facility] CLIA [id number] [address] [place] [address] 7-Swyseb-4-hydroxybu tyrate (C5-OH)/Creatinine (U) [Molar ratio] <0.6 Normal 0.0-1.3 [facility] Comment on above: Order Comment: Speci men Type: URINE SPECIMEN Ordering Facility: [facility] Address: [address] [place] [address] Performed By: #### L [id number] #### [facility] CLIA [id number] [address] [place] [address] [place] 2-Methylbutyrylglyci ne/Creatinine (U) [Molar ratio] 0.4 umol/mmolCr Normal 0.0-0.4 [facility] Comment on above: Order Comment: Speci men Type: URINE SPECIMEN Ordering Facility: [facility] Address: [address] [place] [address] Performed By: #### L [id number] #### [facility] CLIA [id number] [address] [place] [address] 2-Methylcitrate/Crea tinine (U) [Molar ratio] 1.8 umol/mmolCr Normal 1.0-13.9 [facility] Comment on above: Order Comment: Speci men Type: URINE SPECIMEN Ordering Facility: [facility] Address: [address] [place] [address] Performed By: #### L [id number] #### [facility] IA [id number] [address] [place] [address] [place] 2-Oxoadipate/Creatin ine (U) [Molar ratio] <1.6 Normal 0.0-3.3 [facility] Comment on above: Order Comment: Speci men Type: URINE SPECIMEN Ordering Facility: [facility] Address: [address] [place] [address] Performed By: #### L [id number] #### [facility] [place] [id number] [address] [place] [address] [place] 3-Hydroxyglutarate/C reatinine (U) [Molar ratio] 0.0 umol/mmolCr Normal 0.0-0.7 [facility] Comment on above: Order Comment: Speci men Type: URINE SPECIMEN Ordering Facility: [facility] Address: [address] [place] [address] Performed By: #### L [id number] #### [facility] IA [id number] [address] [place] [address] OF [place] 3-Hydroxyisovalerate /Creatinine (U) [Molar ratio] 5.0 umol/mmolCr Normal 2.1-27.3 [facility] Comment on above: Order Comment: Speci men Type: URINE SPECIMEN Ordering Facility: [facility] Address: [address] [place] [address] Performed By: #### L [id number] #### [facility] CLIA [id number] [address] [place] [address] [place] 3-Methylcrotonylglyc ine/Creatinine (U) [Molar ratio] <0.3 Normal <0.3 [facility] Comment on above: Order Comment: Speci men Type: URINE SPECIMEN Ordering Facility: [facility] Address: [address] Performed By: #### L [id number] #### [facility] CLIA [id number] [address] [place] [address] [place] 3-Methylglutaconate/ Creatinine (U) [Molar ratio] 0.7 umol/mmolCr Normal 0.0-2.0 [facility] Comment on above: Order Comment: Speci men Type: URINE SPECIMEN Ordering Facility: [facility] Address: [address] Performed By: #### L [id number] #### [facility] CLIA [id number] [address] [place] [address] [place] 3-Methylglutarate/Cr eatinine (U) [Molar ratio] 0.5 umol/mmolCr Normal 0.0-0.6 [facility] Comment on above: Order Comment: Speci men Type: URINE SPECIMEN Ordering Facility: [facility] Address: [address] Performed By: #### L [id number] #### [facility] CLIA [id number] [address] [place] [address] [place] 4-Hydroxyphenylaceta te/Creatinine (U) [Molar ratio] 149.0 umol/mmolCr High 5.7-147.5 [facility] Comment on above: Order Comment: Speci men Type: URINE SPECIMEN Ordering Facility: [facility] Address: [address] Performed By: #### L [id number] #### [facility] CLIA [id number] [address] OF [place] 4-Hydroxyphenyllacta te/Creatinine (U) [Molar ratio] 4.3 umol/mmolCr Normal 1.3-23.0 [facility] Comment on above: Order Comment: Speci men Type: URINE SPECIMEN Ordering Facility: [facility] Address: [address] [place] [address] Performed By: #### L [id number] #### [facility] IA [id number] [address] [place] [address] [facility] OF [place] 4-Hydroxyphenylpyruv ate/Creatinine (U) [Molar ratio] 0.0 umol/mmolCr Normal <=0.0 [facility] Comment on above: Order Comment: Speci men Type: URINE SPECIMEN Ordering Facility: [facility] Address: [address] Performed By: #### L [id number] #### [facility] IA [id number] [address] [place] [address] OF [place] 5-Oxoproline/Creatin ine (U) [Molar ratio] 1.9 umol/mmolCr Normal 0.4-3.1 [facility] Comment on above: Order Comment: Speci men Type: URINE SPECIMEN Ordering Facility: [facility] Address: [address] [place] [address] Performed By: #### L [id number] #### [facility] IA [id number] [address] [place] [address] [place] Acetoacetate/Creatin ine (U) [Molar ratio] <0.9 High 0.0-0.5 [facility] Comment on above: Order Comment: Speci men Type: URINE SPECIMEN Ordering Facility: [facility] Address: [address] [place] [address] Performed By: #### L [id number] #### [facility] IA [id number] [address] [place] [address] [place] Aconitate/Creatinine (U) [Molar ratio] 14.8 umol/mmolCr Normal 8.5-109.6 [facility] Comment on above: Order Comment: Speci men Type: URINE SPECIMEN Ordering Facility: [facility] Address: [address] [place] [address] Performed By: #### L [id number] #### [facility] CLIA [id number] [address] [place] [address] Adipate/Creatinine (U) [Molar ratio] 3.0 umol/mmolCr Normal 0.3-9.2 [facility] Comment on above: Order Comment: Speci men Type: URINE SPECIMEN Ordering Facility: [facility] Address: [address] [place] [address] Performed By: #### L [id number] #### [facility] CLIA [id number] [address] [place] [address] OF [facility] Alpha hydroxybutyrate/Crea tinine (U) [Molar ratio] <1.0 Normal 0.0-2.7 [facility] Comment on above: Order Comment: Speci men Type: URINE SPECIMEN Ordering Facility: [facility] Address: [address] [place], [place] [address] Performed By: #### L [id number] #### [facility] CLIA [id number] [address] [place] [address] OF [place] Alpha ketoglutarate/Creati nine (U) [Molar ratio] 4.9 umol/mmolCr Normal 0.2-42.7 [facility] Comment on above: Order Comment: Speci men Type: URINE SPECIMEN Ordering Facility: [facility] Address: [address] [place], [place] [address] Performed By: #### L [id number] #### [facility] CLIA [id number] [address] [place] [address] [place] Benzoate/Creatinine (U) [Molar ratio] <12.2 Normal 0.0-14.6 [facility] Comment on above: Order Comment: Speci men Type: URINE SPECIMEN Ordering Facility: [facility] Address: [address] Performed By: #### L [id number] #### [facility] CLIA [id number] [address] [place] [address] [place] Beta hydroxybutyrate/Crea tinine (U) [Molar ratio] <1.6 Normal 0.1-2.6 [facility] Comment on above: Order Comment: Speci men Type: URINE SPECIMEN Ordering Facility: [facility] Address: [address] Performed By: #### L [id number] #### [facility] CLIA [id number] [address] [place] [address] [place] Butyrylglycine/Creat inine (U) [Molar ratio] 0.0 umol/mmolCr Normal 0.0-0.7 [facility] Comment on above: Order Comment: Speci men Type: URINE SPECIMEN Ordering Facility: [facility] Address: [address] Performed By: #### L [id number] #### [facility] CLIA [id number] [address] [place] [address] [place] Creatinine (U) [Mass/Vol] 53.5 mg/dL Normal 42.2-237.9 [facility] Comment on above: Order Comment: Speci men Type: URINE SPECIMEN Ordering Facility: [facility] Address: [address] Performed By: #### L [id number] #### [facility] CLIA [id number] [address] [place] [address] [place] Ethylmalonate/Creati nine (U) [Molar ratio] 1.2 umol/mmolCr Normal 0.5-6.2 [facility] Comment on above: Order Comment: Speci men Type: URINE SPECIMEN Ordering Facility: [facility] Address: [address] Performed By: #### L [id number] #### [facility] IA [id number] [address] [place] [address] Fumarate/Creatinine (U) [Molar ratio] 0.9 umol/mmolCr Normal 0.3-2.6 [facility] Comment on above: Order Comment: Speci men Type: URINE SPECIMEN Ordering Facility: [facility] Address: [address] Performed By: #### L [id number] #### [facility] IA [id number] [address] [place] [address] [place] Glutarate/Creatinine (U) [Molar ratio] 0.1 umol/mmolCr Normal 0.0-1.4 [facility] Comment on above: Order Comment: Speci men Type: URINE SPECIMEN Ordering Facility: [facility] Address: [address] Performed By: #### L [id number] #### [facility] IA [id number] [address] [place] [address] Hexanoylglycine/Crea tinine (U) [Molar ratio] 0.1 umol/mmolCr Normal 0.0-0.1 [facility] Comment on above: Order Comment: Speci men Type: URINE SPECIMEN Ordering Facility: [facility] Address: [address] [place] [address] Performed By: #### L [id number] #### [facility] IA [id number] [address] [place] [address] OF [place] Isobutyrylglycine/Cr eatinine (U) [Molar ratio] 0.6 umol/mmolCr Normal 0.0-1.2 [facility] Comment on above: Order Comment: Speci men Type: URINE SPECIMEN Ordering Facility: [facility] Address: [address] Performed By: #### L [id number] #### [facility] CLIA [id number] [address] OF [place] Isocitrate/Creatinin e (U) [Molar ratio] 48.3 umol/mmolCr Normal 9.1-271.9 [facility] Comment on above: Order Comment: Speci men Type: URINE SPECIMEN Ordering Facility: [facility] Address: [address] [place] [address] Performed By: #### L [id number] #### [facility] CLIA [id number] [address] [place] Lactate/Creatinine (U) [Molar ratio] 9.8 umol/mmolCr Normal 2.9-47.2 [facility] Comment on above: Order Comment: Speci men Type: URINE SPECIMEN Ordering Facility: [facility] Address: [address] [place] [address] Performed By: #### L [id number] #### [facility] CLIA [id number] [address] [place] [address] [place] Malate/Creatinine (U) [Molar ratio] 0.3 umol/mmolCr Normal 0.0-1.1 [facility] Comment on above: Order Comment: Speci men Type: URINE SPECIMEN Ordering Facility: [facility] Address: [address] [place] Performed By: #### L [id number] #### [facility] CLIA [id number] [address] [place] Malonate/Creatinine (U) [Molar ratio] 0.0 umol/mmolCr Normal 0.0-0.1 [facility] Comment on above: Order Comment: Speci men Type: URINE SPECIMEN Ordering Facility: [facility] Address: [address] [place], [place] Performed By: #### L [id number] #### [facility] CLIA [id number] [address] [place] [address] [place] Methylmalonate/Creat inine (U) [Molar ratio] <0.4 Normal 0.0-0.6 [facility] Comment on above: Order Comment: Speci men Type: URINE SPECIMEN Ordering Facility: [facility] Address: [address] [place] [address] Performed By: #### L [id number] #### [facility] CLIA [id number] [address] [place] [address] [place] Methylsuccinate/Crea tinine (U) [Molar ratio] 0.2 umol/mmolCr Normal 0.0-1.4 [facility] Comment on above: Order Comment: Speci men Type: URINE SPECIMEN Ordering Facility: [facility] Address: [address] [place], [place] [id number] Performed By: #### L [id number] #### [facility] CLIA [id number] [address] [place] [address] [place] N-acetylaspartate/Cr eatinine (U) [Molar ratio] 1.6 umol/mmolCr Normal 0.1-8.9 [facility] Comment on above: Order Comment: Speci men Type: URINE SPECIMEN Ordering Facility: [facility] Address: [address] [place], [place] [id number] Performed By: #### L [id number] #### [facility] CLIA [id number] [address] [place] [address] [place] N-acetyltyrosine/Cre atinine (U) [Molar ratio] <0.2 Normal 0.0-1.2 [facility] Comment on above: Order Comment: Speci men Type: URINE SPECIMEN Ordering Facility: [facility] Address: [address] [place], [place] [id number] Performed By: #### L [id number] #### [facility] CLIA [id number] [address] [place] [address] [place] Oxalate/Creatinine (U) [Molar ratio] <1.0 Normal 0.7-12.4 [facility] Comment on above: Order Comment: Speci men Type: URINE SPECIMEN Ordering Facility: [facility] Address: [address] Performed By: #### L [id number] #### [facility] CLIA [id number] [address] [place] [address] [place] Pyruvate/Creatinine (U) [Molar ratio] <0.2 Normal 0.1-2.6 [facility] Comment on above: Order Comment: Speci men Type: URINE SPECIMEN Ordering Facility: [facility] Address: [address] [address] Performed By: #### L [id number] #### [facility] CLIA [id number] [address] [place] [address] [place] Sebacate (C8)/Creatinine (U) [Molar ratio] 0.0 umol/mmolCr Normal [facility] Comment on above: Order Comment: Speci men Type: URINE SPECIMEN Ordering Facility: [facility] Address: [address] Performed By: #### L [id number] #### [facility] CLIA [id number] [address] [place] [address] [place] Suberate/Creatinine (U) [Molar ratio] 2.5 umol/mmolCr Normal 0.0-7.4 [facility] Comment on above: Order Comment: Speci men Type: URINE SPECIMEN Ordering Facility: [facility] Address: [address] Performed By: #### L [id number] #### [facility] CLIA [id number] [address] [place] [address] [place] Suberylglycine/Creat inine (U) [Molar ratio] 0.0 umol/mmolCr Normal <=0.0 [facility] Comment on above: Order Comment: Speci men Type: URINE SPECIMEN Ordering Facility: [facility] Address: [address] [address] Performed By: #### L [id number] #### [facility] CLIA [id number] [address] [place] [address] Succinate/Creatinine (U) [Molar ratio] 1.8 umol/mmolCr Normal 0.3-27.4 [facility] Comment on above: Order Comment: Speci men Type: URINE SPECIMEN Ordering Facility: [facility] Address: [address] [address] Performed By: #### L [id number] #### [facility] CLIA [id number] [address] [place] [address] Succinylacetone/Crea tinine (U) [Molar ratio] <0.4 Normal <0.4 [facility] Comment on above: Order Comment: Speci men Type: URINE SPECIMEN Ordering Facility: [facility] Address: [address] [place] [address] Performed By: #### L [id number] #### [facility] CLIA [id number] [address] [place] [address] [place] UOA CONSULTATION Normal [facility] Comment on above: Order Comment: Speci men Type: URINE SPECIMEN Ordering Facility: [facility] Address: [address] [place] [address] Result Comment: This urine organic acid analysis [...] and its performance characteristics determined by the [facility]. It has not been cleared or approved by the US Food and Drug Administration. The FDA had determined that such clearance or approval is not necessary. Performed By: #### L [id number] #### [facility] CLIA [id number] [address] [place] [address] [place] UOA REVIEW Reviewed by Patrick Proctor MD, Ph.D ([id number]) Normal [facility] Comment on above: Order Comment: Speci men Type: URINE SPECIMEN Ordering Facility: [facility] Address: [address] [place] [address] Performed By: #### L [id number] #### [facility] CLIA [id number] [address] [place] [address] [place] Uracil/Creatinine (U) [Molar ratio] 0.9 umol/mmolCr Normal 0.0-5.1 [facility] Comment on above: Order Comment: Speci men Type: URINE SPECIMEN Ordering Facility: [facility] Address: [address] [place] [address] Performed By: #### L [id number] #### [facility] CLIA [id number] [address] [place] [address] [place] PYRUVATE+LACTATE BLon 2022 Lactate [Moles/Vol] 1.2 mmol/L Normal 0.5-2.2 [facility] Comment on above: Order Comment: Speci men Type: BLOOD SPECIMEN Ordering Facility: [facility] Address: [address] [place] [address] Result Comment: This test was developed and its performance characteristics determined by [facility]'s Fuad JRajesh [facility] [place] ([facility]). It has not been cleared or approved by the FDA. [facility] is regulated under CLIA as qualified to perform high-complexity testing. This test is used for clinical purposes. It should not be regarded as investigational or for research. Performed By: #### L ACPYR #### [facility] CLIA [id number] [address] [place] [address] [place] Pyruvate (Bld) [Moles/Vol] 0.04 mmol/L Normal 0.03-0.10 [facility] Comment on above: Order Comment: Rl basilio Type: BLOOD SPECIMEN Ordering Facility: [facility] Address: [address] [id number] Result Comment: This test was developed and its performance characteristics determined by [facility]'s [facility] [place] ([facility]). It has not been cleared or approved by the FDA. -[facility] is regulated under CLIA as qualified to perform high-complexity testing. This test is used for clinical purposes. It should not be regarded as investigational or for research. Performed By: #### L ACPYR #### [facility] CLIA [id number] [address] [place] [address] [place] T4 Free SerPl-mCncon 023 Free T4 [Mass/Vol] 1.3 ng/dL Normal 0.9-1.7 [facility] Comment on above: Order Comment: Rl basilio Type: BLOOD SPECIMEN Ordering Facility: [facility] Address: [address] [place] [address] Performed By: #### 3 016-3, 1987-, 2156-09 #### [facility] CLIA [id number] [facility] [place] [address] [place] TSH SerPl-aCncon 10-17-2022 TSH Qn 2.050 m[IU]/L Normal 0.270-4.200 [facility] Comment on above: Order Comment: Rl basilio Type: BLOOD SPECIMEN Ordering Facility: [facility] Address: [address] [place] [phone] Result Comment: If t he patient is , TSH reference range varies by gestational period: First Trimester (weeks 9-12): 0.180-2.990 mIU/L Second Trimester: 0.110-3.980 mIU/L Third Trimester: 0.480-4.710 mIU/L Olman Rodriguez et al. A Practical Approach for the Verifications and Determination of Site- and Trimester-Specific Reference Intervals for Thyroid Function tests in . Thyroid, 2019:29:3:412-420. Reji E, et al. 2017 Guidelines of the [place] [employer] for the Diagnosis and Management of Thyroid Disease during and the . Thyroid, 2017:27:3:315-389. Performed By: #### 3 016-3, 1987-08, 2156-09 #### [facility] CLIA [id number] [address] [place] [address] [place] VOLTAGE GATED CA IGGon 10-17 P/Q-TYPE CALCIUM CHANNEL ANTIBODY 10.1 pmol/L Normal 0.0-24.5 [facility] Comment on above: Order Comment: Specmaribel basilio Type: BLOOD SPECIMEN Ordering Facility: [facility] Address: [address] [place] [address] Result Comment: INTE RPRETIVE INFORMATION: P/Q-Type Calcium Channel Antibody 0.0 to 24.5 pmol/L ............. Negative 24.6 to 45.6 pmol/L ............ Indeterminate 45.7 pmol/L or greater.......... Positive This test was developed and its performance characteristics determined by [employer]. It has not been cleared or approved by the US Food and Drug Administration. This test was performed in a CLIA certified laboratory and is intended for clinical purposes. Performed By: [employer] [address] [place] [address] Kitchen Chef: Terry Jacome MD, PhD Performed By: #### 3 016-3, 1987-08, 2156-09 #### [facility] CLIA [id number] [address] [place] [address] [place] VOLTAGE-GATED POTASSIUM VARGAS ABon 10-17-2022 VOLTAGE-GATED POTASSIUM CHANNEL AB, SER 0 pmol/L Normal 0-31 [facility] Comment on above: Order Comment: Specmaribel basilio Type: BLOOD SPECIMEN Ordering Facility: [facility] Address: [address] [place] [address] Result Comment: INTE RPRETIVE INFORMATION: Voltage-Gated Potassium [...] developed and its performance characteristics determined by [employer]. It has not been cleared or approved by the US Food and Drug Administration. This test was performed in a CLIA certified laboratory and is intended for clinical purposes. Performed By: [employer] [address] [place] [address] Kitchen Chef: Terry Jacome MD, PhD Performed By: #### 3 016-3, 1987-, 215[address] #### [facility] CLIA [id number] [address] [facility] [place] [address] [place] NM GASTRIC EMPTYING SOLIDon 09-12-2022 NM GASTRIC EMPTYING SOLID * * *Final Report* * * DATE OF EXAM: Sep 12 2022 2:44PM [facility] 0017 - NM GASTRIC EMPTYING [...] 4 HOURS IS CONSISTENT WITH SEVERE GASTROPARESIS. [facility] Transcribe Date/Time: Sep 12 2022 3:02P Dictated by : LUZ MARINA VÁZQUEZ MD This examination was interpreted and the report reviewed and electronically signed by: LUZ MARINA VÁZQUEZ MD on Sep 12 2022 3:05PM EST [id number] [facility] 09-09-2022 CNPN Telephone (AVXRMO) BELGICA HARPER ([id number]) 1990 F Date Time Provider Department 09/09/22 DIEGO RICKS AVXRWY During your visit today, we recorded the [...] Status:Closed by DIEGO RICKS on 09/09/22 Normal [facility] CITRATE URINE 24HRon 03-2 023 Citric Acid, U, 24hr 472 mg/24 hr Normal 320-1240 Th e [facility] Comment on above: Result Comment: This test was developed and its performance characteristics determined by [employer]. It has not been cleared or approved by the Food and Drug Administration. Performed By: #### A [facility] #### [facility] [address] [address] [address] Li Nagel Citric Acid, Urine 472 mg/L Normal Undefined [facility] Comment on above: Performed By: #### A LPHPHN #### [facility] [address] [place], [place] [address] Dr. Li Nagel OXALATE 24HR URINEon 07-11-2 023 Oxalates, Urine 19 mg/L Normal Undefined The [facility] Comment on above: Performed By: #### O X24HR #### [facility] [id number] Li Nagel Oxalates, Urine 24hr 19 mg/24 hr Normal 4-31 [facility] Comment on above: Performed By: #### O X24HR #### [facility] [address] [place] [address] Dr. Li Nagel MAGNESIUM 24HR URINEon 07-09 Magnesium 24hr Urine 45.0 mg/24 hr Normal 12.0-293.0 [facility] Comment on above: Performed By: #### I MMUN G #### [facility] [address] [place] [address] Dr. Li Nagel Magnesium UR 4.5 mg/dL Normal Not Estab. The [facility] Comment on above: Performed By: #### I MMUN G #### [facility] [address] [place] [address] Dr. Li Nagel PHOSPHORUS 24HR URINEon 06-22 Phosphorus, Urine 51.4 mg/dL Normal Not Estab. [facility] Comment on above: Performed By: #### P HOS 24 #### [facility] [address] [place] [address] Dr. Li Nagel Phosphorus, Urine 24hr 514 mg/24 hr Normal 261-1078 [facility] Comment on above: Performed By: #### P HOS 24 #### [facility] [address] [address] [address] Li Nagel URIC ACID 24 HR URINEon 06-22 Uric Acid, Urine 64.0 mg/dL Normal Not Estab. The [facility] Comment on above: Performed By: #### A LPHPHN #### [facility] [address] [place] [address] Dr. Li Nagel Uric Acid, Urine 24hr 640.0 mg/24 hr Normal 173.7-902.1 [facility] Comment on above: Performed By: #### A LPHPHN #### [facility] [address] [place] [address] Dr. Li Nagel CALCIUM 24 HR URINEon 2022 CALC, 24 HR UR 155.0 mg/24 hr Normal 100.0-300.0 [facility] Comment on above: Performed By: #### I MMUN G #### [facility] [address] [place] [address] Dr. Li Nagel UR CALCIUM 15.5 mg/dL Normal 5.1-21.0 [facility] Comment on above: Performed By: #### I MMUN G #### [facility] [address] [place] [address] Dr. Li Nagel UR TOT VOL 1000 ml/24 HR Normal The [facility] Comment on above: Performed By: #### I MMUN G #### [facility] [address] [place] [address] Dr. Li Nagel Performed By: #### A LPHPHN #### [facility] [address] [place] [address] Dr. Li Nagel CREA 24 HR URINEon CREA, 24 HR UR 1891.80 mg/24 hr Critically high 800.00 -1,800. 00 [facility] Comment on above: Performed By: #### A LPHPHN #### [facility] [address] [place] [address] Dr. Li Nagel URINE CREAT 189.18 mg/dL Normal 20.00-300.00 [facility] Comment on above: Performed By: #### A LPHPHN #### [facility] [address] [place] [address] Dr. Li Nagel PTH INTACTon 07-08-2022 PTH, Intact 41 pg/mL Normal 15-65 [facility] Comment on above: Performed By: #### H EPACUT #### [facility] [address] [place] [address] Dr. Li Nagel SODIUM 24 HR URINEon 07-08-2 023 NA, 24 HR UR 149 mmol/24 hr Normal 40-220 [facility] Comment on above: Performed By: #### A LPHPHN #### [facility] [address] [place] [address] Dr. Li Nagel Sodium (U) [Moles/Vol] 149 mmol/L Critically high 30-90 [facility] Comment on above: Performed By: #### A LPHPHN #### [facility] [address] [place] [address] Dr. Li Nagel BUNon 07-06-2022 Urea nitrogen [Mass/Vol] 11.0 mg/dL Normal 7.0-18.0 [facility] Comment on above: Performed By: #### B UN, URIC, CA, K, NA, CL, CO2, CREA #### [facility] [address] [place] [address] Dr. Li Nagel CALCIUMon 07-06-2022 Calcium [Mass/Vol] 9.0 mg/dL Normal 8.5-10.1 [facility] Comment on above: Performed By: #### B UN, URIC, CA, K, NA, CL, CO2, CREA #### [facility] [address] [place] [address] Dr. Li Nagel CHLORIDEon 07-06-2022 Chloride [Moles/Vol] 107 mmol/L Normal 98-107 [facility] Comment on above: Performed By: #### I MMUN G #### [facility] [address] [place] [address] Dr. Li Nagel CO2on 07-06-2022 CO2 [Moles/Vol] 29.2 mmol/L Normal 21.0-32.0 [facility] Comment on above: Performed By: #### I MMUN G #### [facility] [address] [place] [address] Dr. Li Nagel CREATININEon 07-06-2022 Creatinine [Mass/Vol] 0.97 mg/dL Normal 0.55-1.02 [facility] Comment on above: Performed By: #### B UN, URIC, CA, K, NA, CL, CO2, CREA #### [facility] [address] [place] [address] Dr. Li Nagel EGFR-AF TRISTANIAN >60 Normal >=60 [facility] Comment on above: Performed By: #### B UN, URIC, CA, K, NA, CL, CO2, CREA #### [facility] [address] [place] [address] Dr. Li Nagel EGFR-NON AF TRISTANIAN >60 Normal >=60 [facility] Comment on above: Performed By: #### B UN, URIC, CA, K, NA, CL, CO2, CREA #### [facility] [address] [place] [address] Dr. Li Nagel NAon 07-06-2022 Sodium [Moles/Vol] 143 mmol/L Normal 136-145 [facility] Comment on above: Performed By: #### I MMUN G #### [facility] [address] [place] [address] Dr. Li Nagel POTASSIUMon 07-06-2022 Potassium [Moles/Vol] 3.6 mmol/L Normal 3.5-5.1 [facility] Comment on above: Performed By: #### I MMUN G #### [facility] [address] [place] [address] Dr. Li Nagel URIC ACID SERUMon 07-06-2022 Urate [Mass/Vol] 4.7 mg/dL Normal 2.6-6.0 [facility] Comment on above: Performed By: #### B UN, URIC, CA, K, NA, CL, CO2, CREA #### [facility] [address] [place] [address] Dr. Li Nagel XR KUB 1 VIEWon [...] by: JACKSON ADKINS Date: 2022-06-30 07:02 Normal [facility] US ABD RIGHT UPPER QUADRANTo n 06-15-2022 [...] nephrocalcinosis and a few right renal stones. Buckle [facility] Transcribe Date/Time: Jun 16 2022 7:46A Dictated by : MINERVA LIM MD This examination was interpreted and the report reviewed and electronically signed by: MINERVA LIM MD on Jun 16 2022 7:48AM EST [id number] Normal [facility] US ABD RT UPPER QUADRANTon 0 06-15-2022 [facility] CT ABD/PEL WO IVCONon 2022 Radiology Result ACTIONABLE Abnormal [facility] No Panel Informationon 05-27 [facility] XR CHEST 2V FRONTAL/LATon XR CHEST 2V [...] tissues: Unremarkable. IMPRESSION: No acute radiographic abnormality. Buckle Frame Shaper: [facility] Transcribe Date/Time: May 27 2022 12:39P Dictated by : MARCELA STILL MD This examination was interpreted and the report reviewed and electronically signed by: MARCELA STILL MD on May 27 2022 12:39PM EST [id number] Normal [facility] DEVHM-3-BNHVCHHQDES PHENOTYP [facility] 05-11-2022 Ehgpj-5-Rhlojtadpco, Serum 130 mg/dL Normal 100-188 [facility] Comment on above: Result Comment: Perf ormed at: CB Performed By: #### A LPHPHN #### [facility] [address] [place] [address] Dr. Li Nagel Phenotype (PI) MM Normal The [facility] Comment on above: Result Comment: Phen [...] phenotype. Performed at: Performed By: #### A [facility] #### [facility] [address] [place], [place] [address] Dr. Li Nagel HEREDITARY HEMOCHROMATOSIS, DNA ANALYSISon 05-11-2022 Hereditary Hemochromatosis Comment Normal [facility] Comment on above: Result Comment: Resu lt: c.845G>A (p.Ngl703Rmj) - Not Detected c.187C>G (p.Opw98Qhr) - Not Detected c.193A>T (p.Ona08Rgd) - Not Detected Not associated with increased [...] for patients who are homozygous for c.845G>A (p.Zrw896Pzp) and have yet to experience clinical symptoms. . Comments: The most common HFE variants associated with hereditary hemochromatosis are c.845G>A (p.Zsy292Rgr), c.187C>G (p.Sop61Unp), c.193A>T (p.Oeq38Ztx). While patients homozygous for c.845G>A (p.Xut084Amc) are the most likely to present clinical symptoms, less than 10% develop clinically significant iron overload with tissue and organ damage. . Genetic counseling is recommended to discuss the potential clinical implications of positive results, as well as recommendations for testing family members. Genetic Coordinators are available for health care providers to discuss results at [phone]). . Test Details: Three variants analyzed: c.845G>A (p.Mpv629Yds), commonly referred to as C282Y c.187C>G (p.Rtm92Nqw), commonly referred to as H63D c.193A>T (p.Huf92Iol), commonly referred to as S65C . Methods/Limitations: [...] developed and its performance characteristics determined by [employer]. It has not been cleared or approved by the Food and Drug Administration. . References: Brodie BR, Yoav PC, Deborah KV, Raymond LW, Ramsey ; [place] [employer] for the Study of Liver Diseases. Diagnosis and management of hemochromatosis: 2011 practice guideline by the [place] [employer] the [employer] of Liver Diseases. Hepatology. 2010;54(1):328-43. doi: 10.1002/hep.37072. PMID: 77011656; PMCID: [id number]. Cora G, Olegario P, Fabio DW, Tabatha H, Love O, Zev S, Vazquez I, Kofi M, Sunitha S. [facility] best practice guidelines for the molecular genetic diagnosis of hereditary hemochromatosis (HH). Eur J Hum Margaret. 2016 Jul;24(4):479-95. doi: 10.1038/ejhg.2015.128. Epub 2014Oct 29. PMID: 34210192; PMCID: [id number]. . Kenya Hager, PhD, FACMG Dm Reyna, PhD Alexandro Rodriguez, PhD, [employer] Jhony Hammond, PhD, [employer] Oumar Avila, PhD, [employer] Rob Brand, PhD, [employer] Pascale Gracia, PhD, [employer] Lala Marvin, PhD, FACMG Performed By: #### H [facility] #### [facility] [address] [place] [address] Dr. Li Nagel DENY by IFAon 05-06-2022 Antinuclear Antibodies, IFA Negative Normal [facility] Comment on above: Result Comment: Nega tive <1:80 Borderline 1:80 Positive >1:80 ICAP nomenclature: AC-0 For more information about Hep-2 cell patterns use ANApatterns.org, the official website for the International Consensus on Antinuclear Antibody (DENY) Patterns (ICAP). Performed By: #### A LPHPHN #### [facility] [address] [place] [address] Dr. Li Nagel CERULOPLASMINon 05-05-2022 Ceruloplasmin 27.9 mg/dL Normal 19.0-39.0 The [facility] Comment on above: Performed By: #### H EPACUT #### [facility] [address] [place] [address] Dr. Li Nagel HEPATITIS A AB IGMon 023 Hep A Ab, IgM Negative Normal Negative The [facility] Comment on above: Performed By: #### I MMUN G #### [facility] [address] [place] [address] Dr. Li Nagel IMMUNOGLOBULIN G INDEX SERUM OR CSFon 05-05-2022 Albumin [Mass/Vol] 4.8 g/dL Normal 3.8-4.8 [facility] Comment on above: Performed By: #### I MMUN G #### [facility] [address] [place] [address] Dr. Li Nagel Albumin, CSF NSPINL Normal [facility] Comment on above: Result Comment: Test not performed. No spinal fluid received. contacted Radha at your facility on 05-05-2022 Performed By: #### I MMUN G #### [facility] [address] [place] [address] Dr. Li Nagel CSF IgG Index UPTCAL Normal The [facility] Comment on above: Result Comment: Unab le to calculate result since non-numeric result obtained for component test. Performed By: #### I MMUN G #### [facility] [address] [place] [address] Dr. Li Nagel IgG, Quant, CSF NSPINL Normal [facility] Comment on above: Result Comment: Test not performed. No spinal fluid received. contacted Radha at your facility on 05-05-2022 Performed By: #### I MMUN G #### [facility] [address] [place] [address] Dr. Li Nagel IgG/Alb Ratio, CSF UPTCAL Normal [facility] Comment on above: Result Comment: Unab le to calculate result since non-numeric result obtained for component test. Performed By: #### I MMUN G #### [facility] [address] [address] [address] Li Nagel Immunoglobulin G, Qn, Serum 971 mg/dL Normal 586-1602 [facility] Comment on above: Performed By: #### I MMUN G #### [facility] [address] [place] [address] Dr. Li Nagel LIVER-KIDNEY MICROSOMAL (LKM ) ABon 05-05-2022 Liver-Kidney Microsomal Ab 1.3 Units Normal 0.0-20.0 [facility] Comment on above: Result Comment: Nega tive 0.0 - 20.0 Equivocal 20.1 - 24.9 Positive >24.9 . LKM type 1 antibodies are detected in patients with autoimmune hepatitis type 2 and in up to 8% of patients with chronic HCV infection. Performed By: #### H EPACUT #### [facility] [address] [place] [address] Dr. Li Nagel MITICHONDRIAL (M2) ANTIBODYo n 05-05-2022 Mitochondrial (M2) Antibody <20.0 Normal 0.0-20.0 [facility] Comment on above: Result Comment: Nega tive 0.0 - 20.0 Equivocal 20.1 - 24.9 Positive >24.9 . Mitochondrial (M2) Antibodies are found in 90-96% of patients with primary biliary cirrhosis. Performed By: #### A LPHPHN #### [facility] [address] [address] [address] Li Nagel SMOOTH MUSCLE ANTIBODYon Actin (Smooth Muscle) Antibody 9 Units Normal 0-19 [facility] Comment on above: Result Comment: Nega tive 0 - 19 Weak positive 20 - 30 Moderate to strong positive >30 . Actin Antibodies are found in 52-85% of patients with autoimmune hepatitis or chronic active hepatitis and in 22% of patients with primary biliary cirrhosis. Performed By: #### A LPHPHN #### [facility] [address] [address] [address] Li Nagel FERRITINon 05-03-2022 Ferritin [Mass/Vol] 319.0 ng/mL Critically high 6.2-137.0 [facility] Comment on above: Performed By: #### A LPHPHN #### [facility] [address] [address] [address] Li Nagel PAP ACOG PANEL 2: 30 to 65on 04-28-2022 . . Normal [facility] Comment on above: Result Comment: Perf ormed at: BA Performed By: #### I MMUN G #### [facility] [address] [address] [address] Li Nagel Age Gdln ACOG Testing - Normal [facility] Comment on above: Performed By: #### I MMUN G #### [facility] [address] [address] [address] Li Nagel DIAGNOSIS: Comment Normal [facility] Comment on above: Result Comment: NEGA TIVE FOR INTRAEPITHELIAL LESION OR MALIGNANCY. Performed at: BA Performed By: #### I MMUN G #### [facility] [address] [address] [address] Li aNgel HPV Aptima Negative Normal Negative [facility] Comment on above: Result Comment: This nucleic acid amplification test detects fourteen high-risk HPV types (16,18,31,33,35,39,45,51,52,56,58,59,66,68) without differentiation. Performed at: =G Performed By: #### I MMUN G #### [facility] [address] [address] [address] Li Nagel HPV Genotype Reflex Comment Normal [facility] Comment on above: Result Comment: Crit eria not met, HPV Genotype not performed. Performed at: BA Performed By: #### I MMUN G #### [facility] [address] [place] [address] Dr. Li Nagel Methodology: Comment Normal [facility] Comment on above: Result Comment: This liquid based ThinPrep(R) pap test was screened with the use of an image guided system. Performed at: WB Performed By: #### I MMUN G #### [facility] [address] [place] [address] Dr. Li Nagel Note: Comment Normal [facility] Comment on above: Result Comment: The Pap [...] Performed By: #### I MMUN G #### [facility] [address] [place] [address] Dr. Li Nagel Performed by: Comment Normal [facility] Comment on above: Result Comment: Gretta Holly Legal Clerk (ASCP) Performed at: BA Performed By: #### I MMUN G #### [facility] [address] [place] [address] Dr. Li Nagel Specimen adequacy: Comment Normal [facility] Comment on above: Result Comment: Sati sfactory for evaluation. No endocervical component is identified. Performed at: BA Performed By: #### I MMUN G #### [facility] [address] [place] [address] Dr. Li Nagel HEPATITIS PANEL, ACUTEon HBsAg Screen Negative Normal Negative [facility] Comment on above: Performed By: #### H EPACUT #### [facility] [address] [place] [address] Dr. Li Nagel HCV AB <0.1 Normal 0.0-0.9 [facility] Comment on above: Performed By: #### H EPACUT #### [facility] [address] [place] [address] Dr. Li Nagel Hep A Ab, IgM Negative Normal Negative [facility] Comment on above: Performed By: #### H EPACUT #### [facility] [address] [place], [place] [address] Dr. Li Nagel Hep B Core Ab, IgM Negative Normal Negative [facility] Comment on above: Performed By: #### H EPACUT #### [facility] [address] [place], [place] [address] Dr. Li Nagel Interpretation: Comment Normal [facility] Comment on above: Result Comment: Nega tive Not infected with HCV, unless recent infection is suspected or other evidence exists to indicate HCV infection. Performed By: #### H EPACUT #### [facility] [address] [place], [place] [address] Dr. Li Nagel US PELVIS AND TRANSVAGon [...] LAURIE CRUZ Date: 2021-12-22 09:50 Normal [facility] US ABD RT UPPER QUADRANTon 0 12-10-2021 [facility] US PELVIS AND TRANSVAGon US PELVIS AND [...] LAURIE CRUZ Date: 2021-10-28 13:01 Normal [facility] VAGINITIS/VAGINOSIS DNA PROB Kwasi 10-21-2021 Sarah species Negative Normal Negative [facility] Comment on above: Performed By: #### I MMUN G #### [facility] [address] [place] [address] Dr. Li Nagel Gardnerella vaginalis Negative Normal Negative [facility] Comment on above: Performed By: #### I MMUN G #### [facility] [address] [place] [address] Dr. Li Nagel Trichomonas vaginalis Negative Normal Negative [facility] Comment on above: Performed By: #### I MMUN G #### [facility] [address] [place] [address] Dr. Li Nagel CBC AUTO DIFFon 10-20-2021 BASO # 0.0 103/ul Normal 0.0-0.1 [facility] Comment on above: Performed By: #### A LPHPHN #### [facility] [address] [place] [address] Dr. Li Nagel Basophils/100 WBC (Bld) 0.4 % Normal 0.2-2.0 [facility] Comment on above: Performed By: #### A LPHPHN #### [facility] [address] [place] [address] Dr. Li Nagel EO # 0.2 103/ul Normal 0.0-0.7 [facility] Comment on above: Performed By: #### A LPHPHN #### [facility] [address] [place] [address] Dr. Li Nagel Eosinophils/100 WBC (Bld) 2.6 % Normal 0.9-7.0 [facility] Comment on above: Performed By: #### A LPHPHN #### [facility] [address] [place] [address] Dr. Li Nagel Erythrocyte distribution width (RBC) [Ratio] 12.6 % Normal 11.0-15.0 [facility] Comment on above: Performed By: #### A LPHPHN #### [facility] [address] [place] [address] Dr. Li Nagel Hematocrit (Bld) [Volume fraction] 40.0 % Normal 36.0-48.0 [facility] Comment on above: Performed By: #### A LPHPHN #### [facility] [address] [place] [address] Dr. Li Nagel Hemoglobin (Bld) [Mass/Vol] 13.3 g/dL Normal 12.0-16.0 [facility] Comment on above: Performed By: #### A LPHPHN #### [facility] [address] [place] [address] Dr. Li Nagel IG # 0.06 10e3/ul Critically high 0.00-0.03 [facility] Comment on above: Performed By: #### A LPHPHN #### [facility] [address] [place] [address] Dr. Li Nagel IG % 0.9 % Critically high 0.0-0.5 [facility] Comment on above: Performed By: #### A LPHPHN #### [facility] [address] [place] [address] Dr. Li Nagel LYMPH # 2.2 103/ul Normal 1.2-3.8 [facility] Comment on above: Performed By: #### A LPHPHN #### [facility] [address] [place] [address] Dr. Li Nagel Lymphocytes/100 WBC (Bld) 31.0 % Normal 20.5-60.0 [facility] Comment on above: Performed By: #### A LPHPHN #### [facility] [address] [place] [address] Dr. Li Nagel MANUAL DIFF REQ NO Normal [facility] Comment on above: Performed By: #### A LPHPHN #### [facility] [address] [place] [address] Dr. Li Nagel MCH (RBC) [Entitic mass] 31.4 pg Normal 26.7-34.0 [facility] Comment on above: Performed By: #### A LPHPHN #### [facility] [address] [place] [address] Dr. Li Nagel MCHC (RBC) [Mass/Vol] 33.3 g/dL Normal 29.9-35.2 [facility] Comment on above: Performed By: #### A LPHPHN #### [facility] [address] [place] [address] Dr. Li Nagel MCV (RBC) [Entitic vol] 94.3 fL Normal 81.0-99.0 [facility] Comment on above: Performed By: #### A LPHPHN #### [facility] [address] [place] [address] Dr. Li Nagel MONO # 0.5 103/ul Normal 0.3-0.8 [facility] Comment on above: Performed By: #### A LPHPHN #### [facility] [address] [place] [address] Dr. Li Nagel Monocytes/100 WBC (Bld) 6.9 % Normal 1.7-12.0 [facility] Comment on above: Performed By: #### A LPHPHN #### [facility] [address] [place] [address] Dr. Li Nagel NEUT # 4.1 103/ul Normal 1.4-6.5 [facility] Comment on above: Performed By: #### A LPHPHN #### [facility] [address] [place] [address] Dr. Li Nagel Neutrophils/100 WBC (Bld) 58.2 % Normal 43.0-75.0 [facility] Comment on above: Performed By: #### A LPHPHN #### [facility] [address] [place] [address] Dr. Li Nagel Platelet mean volume (Bld) [Entitic vol] 11.0 fL Normal 9.5-13.5 [facility] Comment on above: Performed By: #### A LPHPHN #### [facility] [address] [place] [address] Dr. Li Nagel PLT 211 103/ul Normal 150-450 [facility] Comment on above: Performed By: #### A LPHPHN #### [facility] [address] [place] [address] Dr. Li Nagel RBC 4.24 106/ul Normal 4.20-5.40 [facility] Comment on above: Performed By: #### A LPHPHN #### [facility] [address] [place] [address] Dr. Li Nagel WBC 7.0 103/ul Normal 4.0-11.0 [facility] Comment on above: Performed By: #### A LPHPHN #### [facility] [address] [place] [address] ABD/PELV W CONon [...] DOLORES MOON Date: 2021-10-20 14:53 Normal [facility] OCC BLD IMMUNO SCREENon 09-23 OCCULT BLOOD Negative Normal NEGATIVE [facility] Comment on above: Performed By: #### O BSCRN #### [facility] [address] [place] [address] Dr. Li Nagel PROF 14(COMP METB)on 022 Albumin [Mass/Vol] 3.7 g/dL Normal 3.4-5.0 [facility] Comment on above: Performed By: #### A LPHPHN #### [facility] [address] [place] [address] Dr. Li Nagel Albumin/Globulin [Mass ratio] 1.2 {ratio} Normal [facility] Comment on above: Performed By: #### A LPHPHN #### [facility] [address] [place] [address] Dr. Li Nagel ALP [Catalytic activity/Vol] 86 U/L Normal 46-116 [facility] Comment on above: Performed By: #### A LPHPHN #### [facility] [address] [place] [address] Dr. Li Nagel ALT [Catalytic activity/Vol] 109 U/L Critically high 14-59 [facility] Comment on above: Performed By: #### A LPHPHN #### [facility] [address] [place] [address] Dr. Li Nagel Anion gap [Moles/Vol] 7.8 mmol/L Normal [facility] Comment on above: Performed By: #### A LPHPHN #### [facility] [address] [place] [address] Dr. Li Nagel AST [Catalytic activity/Vol] 57 U/L Critically high 15-37 [facility] Comment on above: Performed By: #### A LPHPHN #### [facility] [address] [place] [address] Dr. Li Nagel Bilirubin [Mass/Vol] 0.4 mg/dL Normal 0.2-1.0 [facility] Comment on above: Performed By: #### A LPHPHN #### [facility] [address] [place] [address] Dr. Li Nagel Calcium [Mass/Vol] 8.9 mg/dL Normal 8.5-10.1 [facility] Comment on above: Performed By: #### A LPHPHN #### [facility] [address] [place] [address] Dr. Li Nagel Chloride [Moles/Vol] 104 mmol/L Normal 98-107 [facility] Comment on above: Performed By: #### A LPHPHN #### [facility] [address] [place] [address] Dr. Li Nagel CO2 [Moles/Vol] 27.7 mmol/L Normal 21.0-32.0 [facility] Comment on above: Performed By: #### A LPHPHN #### [facility] [address] [place] [address] Dr. Li Nagel Creatinine [Mass/Vol] 0.78 mg/dL Normal 0.55-1.02 [facility] Comment on above: Performed By: #### A LPHPHN #### [facility] [address] [place] [address] Dr. Li Nagel EGFR-AF TRISTANIAN >60 Normal >=60 [facility] Comment on above: Performed By: #### A LPHPHN #### [facility] [address] [place] [address] Dr. Li Nagel EGFR-NON AF TRISTANIAN >60 Normal >=60 [facility] Comment on above: Performed By: #### A LPHPHN #### [facility] [address] [place] [address] Dr. Li Nagel Globulin (S) [Mass/Vol] 3.2 g/dL Normal [facility] Comment on above: Performed By: #### A LPHPHN #### [facility] [address] [place] [address] Dr. Li Nagel Glucose [Mass/Vol] 104 mg/dL Normal 74-106 [facility] Comment on above: Performed By: #### A LPHPHN #### [facility] [address] [place] [address] Dr. Li Nagel Potassium [Moles/Vol] 3.5 mmol/L Normal 3.5-5.1 [facility] Comment on above: Performed By: #### A LPHPHN #### [facility] [address] [place] [address] Dr. Li Nagel Protein [Mass/Vol] 6.9 g/dL Normal 6.4-8.2 [facility] Comment on above: Performed By: #### A LPHPHN #### [facility] [address] [place] [address] Dr. Li Nagel Sodium [Moles/Vol] 136 mmol/L Normal 136-145 [facility] Comment on above: Performed By: #### A LPHPHN #### [facility] [address] [place] [address] Dr. Li Nagel Urea nitrogen [Mass/Vol] 10.0 mg/dL Normal 7.0-18.0 [facility] Comment on above: Performed By: #### A LPHPHN #### [facility] [address] [place] [address] Dr. Li Nagel Urea nitrogen/Creatinine [Mass ratio] 12.8 mg/mg Normal [facility] Comment on above: Performed By: #### A LPHPHN #### [facility] [address] [place] [address] Dr. Li Nagel XR LSPINE MIN 4 [...] by: LAURIE CRUZ Date: 2021-09-06 15:05 Normal [facility] HEPATOBILIARY SCAN W EFon 08-27-2021 NM HEPATOBILIARY [...] by: JACKSON ADKINS Date: 2021-08-27 16:05 Normal [facility] Comprehensive Metabolic Pane yair 08-20-2021 Albumin [Mass/Vol] 5.0 g/dL Normal 3.6-5.1 [facility] Specialist Comment on above: Performed By: #### C MP #### [facility] [address] [place], [place] [id number] Albumin/Globulin [Mass ratio] 2.1 {ratio} Normal 1.0-2.5 [facility] Comment on above: Performed By: #### C MP #### [facility] [address] [place], [place] [id number] ALP [Catalytic activity/Vol] 110 U/L Normal 35-119 [facility] Comment on above: Performed By: #### C MP #### [facility] [address] [place], [place] [id number] ALT [Catalytic activity/Vol] 71 U/L High 6-33 [facility] Comment on above: Result Comment: 12/1 /2021 Female reference range changed. Performed By: #### C MP #### [facility] [address] [place], [place] [id number] Anion gap [Moles/Vol] 17 mmol/L Normal 12-20 [facility] Comment on above: Result Comment: Effe ctive 04/29/2019 reference range changed. Performed By: #### C MP #### [facility] [address] [place], [place] [id number] AST [Catalytic activity/Vol] 69 U/L High 9-34 [facility] Comment on above: Performed By: #### C MP #### [facility] [address] [place], [place] [id number] BUN/CREA 11 Ratio Normal 6-22 [facility] Comment on above: Performed By: #### C MP #### [facility] [address] [place], [place] [id number] Calcium [Mass/Vol] 9.8 mg/dL Normal 8.6-10.2 [facility] Comment on above: Performed By: #### C MP #### [facility] [address] [place], [place] [id number] Chloride [Moles/Vol] 99 mmol/L Normal 98-107 [facility] Comment on above: Performed By: #### C MP #### [facility] [address] [place], [place] [id number] CO2 [Moles/Vol] 25 mmol/L Normal 20-31 [facility] Comment on above: Performed By: #### C MP #### [facility] [address] [place], [place] [id number] Creatinine [Mass/Vol] 0.9 mg/dL Normal 0.6-1.4 [facility] Comment on above: Performed By: #### C MP #### [facility] [address] [place], [place] [id number] eGFRAA 94 mL/min/1.73m2 Normal >60 [facility] Comment on above: Performed By: #### C MP #### [facility] [address] [place], [place] [id number] eGFRNAA 78 mL/min/1.73m2 Normal >60 [facility] Telehealth Case Manager Comment on above: Performed By: #### C MP #### [facility] [address] [place], [place] [id number] Globulin (S) [Mass/Vol] 2.4 g/dL Normal 1.9-3.7 [facility] Comment on above: Performed By: #### C MP #### [facility] [address] [place], [place] [id number] Glucose [Mass/Vol] 100 mg/dL High 65-99 [facility] Telehealth Case Manager Comment on above: Result Comment: For FASTING Glucose --- ADA reference ranges: Normal 65-99 mg/dl Prediabetes 100-125 Diabetes >/= 126 Performed By: #### C MP #### [facility] [address], [place] [id number] Potassium [Moles/Vol] 3.8 mmol/L Normal 3.5-5.5 [facility] Telehealth Case Manager Comment on above: Performed By: #### C MP #### [facility] [address] [place], [place] [id number] Protein [Mass/Vol] 7.4 g/dL Normal 6.1-8.1 [facility] Telehealth Case Manager Comment on above: Performed By: #### C MP #### [facility] [address] [place], [place] [id number] Sodium [Moles/Vol] 137 mmol/L Normal 135-146 [facility] Telehealth Case Manager Comment on above: Performed By: #### C MP #### [facility] [address] [place], [place] [id number] TBIL <0.3 Normal [facility] Specialist Comment on above: Performed By: #### C MP #### [facility] [address] [place], [place] [id number] Urea nitrogen [Mass/Vol] 10 mg/dL Normal 7-25 [facility] Telehealth Case Manager Comment on above: Performed By: #### C MP #### [facility] [address] [place], [place] [id number] US SINGLE QUAD RT UPPERon US SINGLE [...] JACKSON ADKINS Date: 2021-08-16 08:19 Normal [facility] Complete Blood Count with Au to Diffon 08-06-2021 Basophils (Bld) [#/Vol] 0.03 10*3/uL Normal 0.00-0.20 [facility] Comment on above: Performed By: #### C MP, CBCAD, LIPD #### [facility] [address] [place], [place] [id number] Basophils/100 WBC (Bld) 0.4 % Normal [facility] Comment on above: Performed By: #### C MP, CBCAD, LIPD #### [facility] [address] [place], [place] [id number] Eosinophils (Bld) [#/Vol] 0.11 10*3/uL Normal 0.02-0.50 [facility] Comment on above: Performed By: #### C MP, CBCAD, LIPD #### [facility] [address] [place], [place] [id number] Eosinophils/100 WBC (Bld) 1.4 % Normal [facility] Comment on above: Performed By: #### C MP, CBCAD, LIPD #### [facility] [address] [place], [place] [id number] Erythrocyte distribution width (RBC) [Ratio] 12.6 % Normal 11.0-15.0 [facility] Telehealth Case Manager Comment on above: Performed By: #### C MP, CBCAD, LIPD #### [facility] [address] [place], [place] [id number] Hematocrit (Bld) [Volume fraction] 44.2 % Normal 35.0-47.0 [facility] Telehealth Case Manager Comment on above: Performed By: #### C MP, CBCAD, LIPD #### [facility] [address] [place], [place] [id number] Hemoglobin (Bld) [Mass/Vol] 14.8 g/dL Normal 11.6-15.5 [facility] Telehealth Case Manager Comment on above: Performed By: #### C NORBERTO, CBCAD, LIPD #### [facility] [address] [place], [place] [id number] Lymphocytes (Bld) [#/Vol] 2.2 10*3/uL Normal 0.9-3.9 [facility] Telehealth Case Manager Comment on above: Performed By: #### C MP, CBCAD, LIPD #### [facility] [address] [place], [place] [id number] Lymphocytes/100 WBC (Bld) 28.1 % Normal [facility] Telehealth Case Manager Comment on above: Performed By: #### C NORBERTO, CBCAD, LIPD #### [facility] [address] [place], [place] [id number] MCH (RBC) [Entitic mass] 31.2 pg Normal 27.0-33.0 [facility] Telehealth Case Manager Comment on above: Performed By: #### C MP, CBCAD, LIPD #### [facility] [address] [place], [place] [id number] MCHC (RBC) [Mass/Vol] 33.5 g/dL Normal 32.0-36.0 [facility] Telehealth Case Manager Comment on above: Performed By: #### C MP, CBCAD, LIPD #### [facility] [address] [place], [place] [id number] MCV (RBC) [Entitic vol] 93 fL Normal 80-100 [facility] Telehealth Case Manager Comment on above: Performed By: #### C MP, CBCAD, LIPD #### [facility] [address] [place], [place] [id number] Monocytes (Bld) [#/Vol] 0.4 10*3/uL Normal 0.2-0.9 [facility] Comment on above: Performed By: #### C MP, CBCAD, LIPD #### [facility] [address] [place], [place] [id number] Monocytes/100 WBC (Bld) 4.8 % Normal [facility] Comment on above: Performed By: #### C MP, CBCAD, LIPD #### [facility] [address] [place], [place] [id number] Neutrophils (Bld) [#/Vol] 5.1 10*3/uL Normal 1.5-7.8 [facility] Specialist Comment on above: Performed By: #### C MP, CBCAD, LIPD #### [facility] [address] [place], [place] [id number] Neutrophils/100 WBC (Bld) 64.3 % Normal [facility] Specialist Comment on above: Performed By: #### C MP, CBCAD, LIPD #### [facility] [address] [place], [place] [id number] Platelet mean volume (Bld) [Entitic vol] 11.00 fL Normal 7.50-12.50 [facility] Comment on above: Performed By: #### C MP, CBCAD, LIPD #### [facility] [address] [place], [place] [id number] Platelets (Bld) [#/Vol] 296 10*3/uL Normal 140-400 [facility] Specialist Comment on above: Performed By: #### C MP, CBCAD, LIPD #### [facility] [address] [place], [place] [id number] RBC (Bld) [#/Vol] 4.74 10*6/uL Normal 3.90-5.20 [facility] Specialist Comment on above: Performed By: #### C MP, CBCAD, LIPD #### [facility] [address] [place], [place] [id number] RDW-SD 43.4 fL Normal 37.0-50.0 [facility] Specialist Comment on above: Performed By: #### C MP, CBCAD, LIPD #### [facility] [address] [place], [place] [id number] WBC (Bld) [#/Vol] 8.0 10*3/uL Normal 3.8-11.0 [facility] Telehealth Case Manager Comment on above: Performed By: #### C MP, CBCAD, LIPD #### [facility] [address] [place], [place] [id number] Comprehensive Metabolic Pane yair 08-06-2021 Albumin [Mass/Vol] 5.2 g/dL High 3.6-5.1 [facility] Telehealth Case Manager Comment on above: Performed By: #### C MP, CBCAD, LIPD #### [facility] [address] [place], [place] [id number] Albumin/Globulin [Mass ratio] 2.1 {ratio} Normal 1.0-2.5 [facility] Telehealth Case Manager Comment on above: Performed By: #### C MP, CBCAD, LIPD #### [facility] [address] [place], [place] [id number] ALP [Catalytic activity/Vol] 115 U/L Normal 35-119 [facility] Telehealth Case Manager Comment on above: Performed By: #### C MP, CBCAD, LIPD #### [facility] [address] [place], [place] [id number] ALT [Catalytic activity/Vol] 101 U/L High 6-33 [facility] Telehealth Case Manager Comment on above: Result Comment: 03/24 Female reference range changed. Performed By: #### C MP, CBCAD, LIPD #### [facility] [address] [place], [place] [id number] Anion gap [Moles/Vol] 20 mmol/L Normal 12-20 [facility] Telehealth Case Manager Comment on above: Result Comment: Effe ctive 04/29/2019 reference range changed. Performed By: #### C MP, CBCAD, LIPD #### [facility] [address] [place], [place] [id number] AST [Catalytic activity/Vol] 96 U/L High 9-34 [facility] Telehealth Case Manager Comment on above: Performed By: #### C MP, CBCAD, LIPD #### [facility] [address] [place], [place] [id number] BUN/CREA 9 Ratio Normal 6-22 [facility] Comment on above: Performed By: #### C MP, CBCAD, LIPD #### [facility] [address] [place], [place] [id number] Calcium [Mass/Vol] 9.9 mg/dL Normal 8.6-10.2 [facility] Comment on above: Performed By: #### C MP, CBCAD, LIPD #### [facility] [address] [place], [place] [id number] Chloride [Moles/Vol] 106 mmol/L Normal 98-107 [facility] Comment on above: Performed By: #### C MP, CBCAD, LIPD #### [facility] [address] [place], [place] [id number] CO2 [Moles/Vol] 21 mmol/L Normal 20-31 [facility] Comment on above: Performed By: #### C MP, CBCAD, LIPD #### [facility] [address] [place], [place] [id number] Creatinine [Mass/Vol] 0.9 mg/dL Normal 0.6-1.4 [facility] Comment on above: Performed By: #### C MP, CBCAD, LIPD #### [facility] [address] [place], [place] [id number] eGFRAA 90 mL/min/1.73m2 Normal >60 [facility] Specialist Comment on above: Performed By: #### C MP, CBCAD, LIPD #### [facility] [address] [place], [place] [id number] eGFRNAA 74 mL/min/1.73m2 Normal >60 [facility] Specialist Comment on above: Performed By: #### C MP, CBCAD, LIPD #### [facility] [address] [place], [place] [id number] Globulin (S) [Mass/Vol] 2.5 g/dL Normal 1.9-3.7 [facility] Specialist Comment on above: Performed By: #### C MP, CBCAD, LIPD #### [facility] [address] [place], [place] [id number] Glucose [Mass/Vol] 127 mg/dL High 65-99 [facility] Telehealth Case Manager Comment on above: Result Comment: For FASTING Glucose --- ADA reference ranges: Normal 65-99 mg/dl Prediabetes 100-125 Diabetes >/= 126 Performed By: #### C NORBERTO, CBCAD, LIPD #### [facility] [address] [place], [place] [id number] Potassium [Moles/Vol] 4.2 mmol/L Normal 3.5-5.5 [facility] Telehealth Case Manager Comment on above: Performed By: #### C MP, CBCAD, LIPD #### [facility] [address] [place], [place] [id number] Protein [Mass/Vol] 7.7 g/dL Normal 6.1-8.1 [facility] Telehealth Case Manager Comment on above: Performed By: #### C NORBERTO, CBCAD, LIPD #### [facility] [address] [place], [place] [id number] Sodium [Moles/Vol] 143 mmol/L Normal 135-146 [facility] Telehealth Case Manager Comment on above: Performed By: #### C MP, CBCAD, LIPD #### [facility] [address] [place], [place] [id number] TBIL <0.3 Normal [facility] Specialist Comment on above: Performed By: #### C NORBERTO, CBCAD, LIPD #### [facility] [address] [place], [place] [id number] Urea nitrogen [Mass/Vol] 8 mg/dL Normal 7-25 [facility] Telehealth Case Manager Comment on above: Performed By: #### C MP, CBCAD, LIPD #### [facility] [address] [place], [place] [id number] Hemoglobin A1Con 08-06-2021 EAG 99.67 Normal [facility] Telehealth Case Manager Comment on above: Performed By: #### A 1C #### [facility] [address] [place], [place] [id number] HbA1c (Bld) [Mass fraction] 5.1 % Normal 4.0-6.0 [facility] Telehealth Case Manager Comment on above: Performed By: #### A 1C #### [facility] [address] [place], [place] [id number] Lipid Panelon 08-06-2021 Cholesterol [Mass/Vol] 190 mg/dL Normal 125-200 [facility] Specialist Comment on above: Result Comment: Low risk < 200mg/dL Borderline risk 201-239 mg/dl High risk > or equal to 240 Performed By: #### C MP, CBCAD, LIPD #### [facility] [address] [place], [place] [id number] Cholesterol in HDL [Mass/Vol] 64 mg/dL Normal >40 [facility] Telehealth Case Manager Comment on above: Result Comment: High Cardiovascular Risk HDL <40 mg/dL Low Cardiovascular Risk HDL > or equal to 60 mg/dl Performed By: #### C MP, CBCAD, LIPD #### [facility] [address] [place], [place] [id number] Cholesterol in LDL [Mass/Vol] 107 mg/dL Normal [facility] Specialist Comment on above: Result Comment: LDL ATP III CLASSIFICATION LDL less than 100 mg/dl Optimal LDL 100-129 mg/dl Near or above optimal LDL 130-159 Borderline high LDL 160-189 High LDL greater than 189 mg/dl Very High Performed By: #### C MP, CBCAD, LIPD #### [facility] [address] [place], [place] [id number] Cholesterol in VLDL [Mass/Vol] 19 mg/dL Normal [facility] Telehealth Case Manager Comment on above: Performed By: #### C MP, CBCAD, LIPD #### [facility] [address] [place], [place] [id number] Cholesterol.total/Ch olesterol in HDL [Mass ratio] 3 {ratio} Normal [facility] Specialist Comment on above: Performed By: #### C MP, CBCAD, LIPD #### [facility] [address] [place], [place] [id number] Triglyceride [Mass/Vol] 95 mg/dL Normal 30-150 [facility] Telehealth Case Manager Comment on above: Result Comment: TRIG ATPIII CLASSIFICATIONS TRIG less than 150 mg/dl Normal TRIG 150-199 mg/dl Borderline High TRIG 200-500 mg/dl High TRIG greather than 500 mg/dl Very High Performed By: #### C MP, CBCAD, LIPD #### [facility] [address] [place], [place] [id number] Q - CULTURE,URINE,ROUTINEon 06-04-2021 CULTURE, URINE, ROUTINE SEE NOTE Normal [facility] Telehealth Case Manager Comment on above: Order Comment: [facility] Testing performed at: [facility] [employer] [facility], [address], [address], [place], [address], Kitchen Chef: Tim Dotson MD [facility] Collection Date/Time: [id number] [facility] Results Received Date/Time: [facility] Reported Date/Time: [id number] Result Comment: CULT URE, URINE, ROUTINE Micro Number: [id number] Test Status: Final Specimen Source: Not given Specimen Quality: Adequate Result: Mixed genital marie isolated. These superficial bacteria are not indicative of a urinary tract infection. No further organism identification is warranted on this specimen. If clinically indicated, recollect clean-catch, mid-stream urine and transfer immediately to Urine Culture Transport Tube. Performed By: #### [id number] #### [facility] [address] [place] [address] MRI LUMBAR SPINE WO CONTRAST on 11-06-2018 [...] Lagos MD 11/06/18 Final result Normal [facility] Vital Signs Date Time Vital Sign Value Performing Clinician Facility 11-02-2022 13:10-0400 Body height 157.5 cm Samuel Freeman MD Work Phone: [facility] 11-02-2022 13:10-0400 Body weight 71 kg Samuel Freeman MD Work Phone: [facility] 11-02-2022 13:10-0400 Diastolic blood pressure 97 mm[Hg] Samuel Freeman MD Work Phone: [facility] 11-02-2022 13:10-0400 Heart rate 100 /min Samuel Freeman MD Work Phone: [facility] 11-02-2022 13:10-0400 Systolic blood pressure 141 mm[Hg] Samuel Freeman MD Work Phone: [facility] 05-27-2022 11:29-0500 Body weight 85.73 kg Carol Winn MD Work Phone: [facility] 05-27-2022 11:29-0500 Diastolic blood pressure 92 mm[Hg] Carol Winn MD Work Phone: [facility] 05-27-2022 11:29-0500 Heart rate 102 /min Carol Winn MD Work Phone: [facility] 05-27-2022 11:29-0500 Systolic blood pressure 145 mm[Hg] Carol Winn MD Work Phone: [facility] 05-03-2022 15:30-0500 Body height 158.75 cm Imad Asaad Other [employer] Other 05-03-2022 15:30-0500 Body mass index (BMI) [Ratio] 34.55 kg/m2 Imad Asaad Other [employer] Other 05-03-2022 15:30-0500 Body weight 87.09 kg Imad Asaad Other [employer] Other 05-03-2022 15:30-0500 Diastolic blood pressure 91 mm[Hg] Imad Asaad Other [employer] Other 05-03-2022 15:30-0500 Systolic blood pressure 130 mm[Hg] Imad Asaad Other [employer] Other 05-03-2022 14:47-0500 Body weight 0 kg MD Giovani Hagen Work Phone: [facility] Encounters Encounter Date Encounter Type Care Provider Facility Start: 12-28-2023 ambulatory BHAVESH DEJESUS Facility:[facility] Start: 12-04-2023 End: 12-04-2023 ambulatory RUGEN [...] Evaluation and management of inpatient MARY Palomo [facility] Start: 03-20-2023 ambulatory Carol Winn MD [...] Start: 10-26-2022 End: 10-26-2022 ambulatory Imad Asaad Facility:[facility] Start: 10-26-2022 End: 10-26-2022 ambulatory MD Giovani Hagen Work Phone: [facility] Work Phone: Start: 10-26-2022 End: 10-26-2022 Patient encounter procedure MD Giovani Hagen Work Phone: [facility] [place] Work Phone: Start: 10-18-2022 ambulatory Maria Dolores Corey DO Work Phone: Gastroenterology Start: 10-18-2022 Telephone encounter Maria Dolores Corey DO Work Phone: Gastroenterology Comment on above: Medication Preauthorization ([employer]) Results Start: 10-17-2022 End: 10-18-2022 ambulatory MARIA DOLORES Rodney COREY Facility:[facility] Start: 10-17-2022 End: 10-17-2022 Patient encounter procedure Electrogastrogram [facility] Work Phone: Gastroenterology Comment on above: Gastroparesis (Primary Dx) Start: 09-12-2022 ambulatory NOMA DAKHIL Facility[facility] Start: 09-12-2022 End: 09-12-2022 Subsequent hospital visit by physician [facility] Work Phone: [facility] Radiology Molecular Comment on above: Nausea [R11.0] Start: 08-24-2022 Telephone encounter Nurse Jud [facility] Work Phone: Gastroenterology Comment on above: Appointment Start: 07-08-2022 End: 07-08-[address] MADHURI MISHRA . Facility:[facility] Start: 07-06-2022 End: 07-07-[address] MADHURI MISHRA . Facility:[facility] Start: 07-05-2022 End: 07-05-2022 Patient encounter procedure Madhuri MISHRA [facility] Start: 07-04-2022 Orders Only Carol Winn MD Work Phone: Gastroenterology Start: 06-29-2022 End: 06-30-[address] MADHURI MISHRA . Facility:[facility] Start: 06-29-2022 End: 06-29-2022 Lab Drop off Madhuri MISHRA [facility] Start: 06-23-2022 ambulatory Carol Winn MD Work Phone: Gastroenterology Comment on above: EGD instructions Start: 06-23-2022 E-mail encounter from caregiver Carol Winn MD Work Phone: [facility] Start: 06-16-2022 ambulatory [facility] Gastroenterology Comment on above: Question regarding US ABD RT UPPER QUADR ANT Start: 06-15-2022 ambulatory CAROL WINN Facility:[facility] Start: 06-15-2022 End: 06-15-2022 Subsequent hospital visit by physician [facility] Work Phone: [facility] Radiology Ultrasound Comment on above: Liver lesion [K76.9] Start: 06-14-2022 Orders Only Carol Winn MD Work Phone: Ambulatory Surgery Comment on above: Liver lesion (Primary Dx) Results Start: 06-10-2022 ambulatory Diamond Pycraft RT(R) Radiology Ct Scan Comment on above: Radiology CT Start: 06-10-2022 Patient encounter procedure Diamond Pycraft RT(R) [facility] Start: 06-10-2022 End: 02-17-2023 Subsequent hospital visit by physician Ct Prep [facility] Radiology Ct Scan Comment on above: Bilious vomiting with nausea [R11.14] Start: 05-27-2022 ambulatory CAROL WINN Facility:[facility] Start: 05-27-2022 End: 05-27-2022 Subsequent hospital visit by physician Ar[facility] Work Phone: [facility] Radiology General Comment on above: SOB (shortness of breath) [R06.02] Start: 05-27-2022 End: 05-27-2022 Patient encounter procedure Carol Winn MD Work Phone: Gastroenterology Comment on above: Fatty liver (Primary Dx); Bilious vomiting with nausea; Right sided abdominal pain; Nausea; History of diverticulitis; SOB (shortness of breath) Start: 05-13-2022 End: 05-13-2022 ambulatory Imad Asaad Facility:[facility] Start: 05-13-2022 End: 05-13-2022 ambulatory MD Giovani Hagen Work Phone: [facility] Work Phone: Start: 05-13-2022 End: 05-13-2022 Patient encounter procedure MD Giovani Hagen Work Phone: [facility] Work Phone: Start: 05-03-2022 End: 05-04-2022 ambulatory IMAD ASAAD [facility] Other Start: 05-03-2022 Office consultation new/estab patient 60 min Imad Asaad [facility] Start: 04-20-2022 End: 04-20-[address] AURORA IRBY . Facility:[facility] Start: 04-06-2022 End: 04-07-[address] IGOVANI HAGEN Facility:[facility] Start: 12-21-2021 End: 12-22-[address] AURORA IRBY . Facility:[facility] Start: 12-10-2021 End: 12-10-2021 Subsequent hospital visit by physician [facility] Comment on above: Elevated LFTs [...] Start: 11-06-2018 End: 11-09-2018 Patient encounter procedure [facility] Procedures Date Procedure Procedure Detail Performing [...] sacroil iac joint using fluoroscopic guidance Madhuri MISRHA Comment on above: right 50% relief to present section Madhuri SERRANO Hysterectomy Madhuri MISHRA Plan of Treatment Date Care Activity Detail Author Start: 12-24-2023 Influenza [facility] Start: 12-19-2023 End: 12-19-2023 ambulatory 12/19/2023 2:15 PM EDT Results Only Cardiology [address] [place] [address] Exertional Syncope. Referring: Dr. Shilo Dillon Cardiology Comment on above: Exertional Syncope. Referring: Dr. Shilo Dillon Start: 12-19-2023 End: 12-19-2023 Patient encounter procedure Cardiology Comment on above: Exertional Syncope. Referring: Dr. Shilo Dillon Start: 04-24-2023 Behavioral Health Screening Behavioral Health Screening [facility] Start: 12-23-2022 Covid-19 Vaccine ( season) Covid-19 Vaccine ( season) [facility] Start: 12-23-2022 Influenza vaccination [facility] Start: 05-13-2022 [facility] Start: 04-24-2022 DEPRESSION ASSESSMENT DEPRESSION ASSESSMENT [facility] Start: 12-28-2021 COVID-19 VACCINE (4 - Booster for Pfizer series) COVID-19 VACCINE (4 - Booster for Pfizer series) [facility] Start: 12-28-2021 COVID-19 VACCINE (4 - Pfizer series) COVID-19 VACCINE (4 - Pfizer series) [facility] Start: 12-23-2021 Influenza vaccination INFLUENZA (#1) [facility] Start: 02-06-2020 Urine microalbumin profile DTaP,Tdap,Td Vaccine (6 - Td or Tdap) [facility] Start: 2018 HPV TESTING HPV TESTING [facility] Start: 2009 PAP TESTING PAP TESTING [facility] Start: 2009 Screening for malignant neoplasm of cervix Cervical Cancer Screening [facility] Start: 09-29-2007 Urine microalbumin profile DTAP,TDAP,TD (1 - Tdap) [facility] Start: 11-30-2006 HPV Vaccine (2 - 3-dose series) HPV Vaccine (2 - 3-dose series) [facility] Start: 2006 HEPATITIS C SCREENING HEPATITIS C SCREENING [facility] Start: 2006 Hepatitis C screening Hepatitis C Screening [facility] Start: 2006 HIV SCREENING HIV SCREENING [facility] Start: 2006 HIV screening HIV Screening [facility] Start: 1988 HEPATITIS B (1 of 3 - 3-dose series) HEPATITIS B (1 of 3 - 3-dose series) [facility] Actin smooth muscle IgG Ab [Units/volume] in Serum [facility] Alpha 1 antitrypsin [Mass/volume] in Serum or Plasma [facility] Alpha 1 antitrypsin phenotyping [Identifier] in Serum or Plasma by Immunofixation [facility] Ceruloplasmin [Mass/ volume] in Serum or Plasma [facility] End: 06-26-2023 Ct abdomen & pelvis w/o contrast material CT ABD/PEL WO IVCON Radiology Routine Bilious vomiting with nausea Right sided abdominal pain Nausea 1 Occurrences starting 05/27/2022 until 06/26/2023 [facility] Work Phone: Comment on above: 1 Occurrences starting 05/27/2022 until 06/26/2023 End: 11-01-2024 ECG COMPLETE ECG COMPLETE ECG Routine Gastroparesis 1 Occurrences starting 11/02/2023 until 11/01/2024 [facility] Work Phone: Comment on above: 1 Occurrences starting 11/02/2023 until 11/01/2024 End: 05-27-2023 EGD DIAGNOSTIC EGD DIAGNOSTIC Endoscopy Routine Bilious vomiting with nausea Right sided abdominal pain 1 Occurrences starting 05/27/2022 until 05/27/2023 [facility] Work Phone: Comment on above: 1 Occurrences starting 05/27/2022 until 05/27/2023 Electrogastrography dx transcutaneous EGG (ELECTROGASTROGRAPHY) Procedures Routine Gastroparesis Ordered: 09/14/2022 [facility] Work Phone: Comment on above: Ordered: 09/14/2022 Hepatitis A virus Ab [Presence] in Serum by Immunoassay [facility] HFE gene mutations f ound [Identifier] in Blood or Tissue by Molecular genetics method [facility] Homogenous nuclear A b pattern [Titer] in Serum [facility] IgG [Mass/volume] in Serum or Plasma [facility] Lipoprotein a [Moles /volume] in Serum or Plasma [facility] Mitochondria M2 IgG Ab [Units/volume] in Serum [facility] Nuclear Ab [Titer] in Serum [facility] End: 07-14-2023 Us abdominal real time w/image limited US ABD RT UPPER QUADRANT Radiology Routine Liver lesion 1 Occurrences starting 06/14/2022 until 07/14/2023 [facility] Work Phone: Comment on above: 1 Occurrences starting 06/14/2022 until 07/14/2023 [facility] Immunizations Immunization Date Immunization Notes Care Provider Bernadette vickers 11-02-2021 SARS-CoV-2 mRNA (sfmjacipckc-eaoh-maum ose) vaccine Madhuri MISHRA [facility] 04-29-2021 SARS-CoV-2 (COVID-19 ) mRNA BNT-162b2 vax Madhuri MISHRA [facility] 03-03-2021 SARS-CoV-2 (COVID-19 ) mRNA BNT-162b2 vax Madhuri MISHRA [facility] Comment on above: Result Comment: 2022: TPVAL 02-09-2021 influenza virus vaccine, unspecified formulation Madhuri MISHRA [facility] 03-16-2020 influenza virus vaccine, unspecified formulation Madhuri MISHRA [facility] 01-08-2018 influenza virus vaccine, unspecified formulation Madhuri MISHRA [facility] 02-01-2017 influenza virus vaccine, unspecified formulation Madhuri MISHRA [facility] 03-25-2016 influenza virus vaccine, unspecified formulation Madhuri MISHRA [facility] 02-05-2010 tetanus toxoid, reduced diphtheria toxoid, and acellular pertussis vaccine, adsorbed Madhuri MISHRA [facility] 01-05-2007 hepatitis B vaccine, pediatric or pediatric/adolescent dosage Madhuri [employer] [facility] 11-02-2006 hepatitis B vaccine, pediatric or pediatric/adolescent dosage Madhuri [employer] [facility] 11-02-2006 HPV, unspecified formulation Madhuri [employer] [facility] 11-02-2006 meningococcal ACWY vaccine, unspecified formulation Madhuri [employer] [facility] 02-20-1998 hepatitis B vaccine, pediatric or pediatric/adolescent dosage Madhuri [employer] [facility] 12-07-1992 measles, mumps and rubella virus vaccine Madhuri MISHRA [facility] 06-09-1992 measles, mumps and rubella virus vaccine Madhuri MISHRA [facility] 10-31-1990 varicella virus vaccine Madhuri MISHRA [facility] NEGATED: Highlighted row has not occurred!05-01-2019 influenza virus vaccine, live, attenuated, for intranasal use Madhuri MISHRA [facility] NEGATED: Highlighted row has not occurred!04-03-2019 influenza virus vaccine, live, attenuated, for intranasal use Madhuri MISHRA [facility] Payers Date Payer Category Payer Self-pay [id number] 2020 Unknown [id number] 1988 Unknown [id number] [id number]2 1988 Unknown [id number] 2.16.840.1.800341.3.579.2.593 1988 Unknown [id number] 2.16.840.1.797397.3.579.2.593 1988 Unknown [id number] 2.16.840.1.147109.3.579.2.593 1988 Unknown [id number] 2.16.840.1.790023.3.579.2.593 1988 Unknown [id number] 2.16.840.1.213363.3.579.2.593 1988 Unknown [id number] 2.16.840.1.048287.3.579.2.593 1988 Unknown [id number] 2.16.840.1.911446.3.579.2.593 1988 Unknown [id number] 2.16.840.1.927945.3.579.2.593 1988 Unknown [id number] 2.16.840.1.521762.3.579.2.593 1988 Unknown [id number] 2.16.840.1.060940.3.579.2.593 1988 Unknown [id number] 2.16.840.1.304727.3.579.2.593 1988 Unknown [id number] 2.16.840.1.374701.3.579.2.593 1988 Unknown [id number] 2.16.840.1.353532.3.579.2.593 1988 Unknown [id number] 2.16.840.1.590932.3.579.2.177 1988 Unknown [id number] 2.16840.1.969087.3.579.2.727 1988 Unknown [id number] 2.16840.1.283220.3.579.2.1259 1988 Unknown [id number] 2.16.840.1.842104.3.579.2.1259 1988 Unknown [id number] 2.16.840.1.318577.3.579.2.1259 1988 Unknown [id number] 2.16840.1.607330.3.579.2.1259 1988 Unknown [id number] 2.16840.1.157409.3.579.2.1259 1988 Unknown [id number] 2.16840.1.737654.3.579.2.1259 1959 Unknown [id number] Unknown 100 [facility] [id number] Unknown [id number] 2.16840.1.416676.3.579.2.531 Unknown [id number] 2.16840.1.103913.3.579.2.531 Social History Date Type Detail Facility Tobacco smoking stat us NHIS Unknown if ever smoked [facility] Work Phone: Start: 1990 Sex Assigned At Female F [facility] Start: 03-28-2019 End: 05-27-2022 Tobacco smoking status NHIS Never smoked tobacco [facility] Start: 03-28-2019 End: 05-27-2022 Tobacco use and exposure Smokeless tobacco non-user [facility] Start: 05-27-2022 End: 11-02-2022 Alcohol intake Current drinker of alcohol (finding) [facility] Start: 03-28-2019 Alcohol Comment socially [facility] Start: 1990 Sex Assigned At Not on file C [facility] Start: 10-17-2022 End: 11-02-2022 Sex Assigned At [facility] Start: 06-29-2022 Tobacco smoking status Ex-smoker (fi nding) [facility] Tobacco smoking status Never [facility] Start: 10-17-2022 End: 11-02-2022 History of Social function [facility] Start: 06-08-2021 Gender identity Identifies as female gender (finding) [facility] Start: 11-16-2021 End: 11-26-2021 Exposure to SARS-CoV-2 (event) Not sure [facility] Goals Date Patient Goal Desired Activity /State Functional Status Date Assessment Result Facility 06-30-2022 Functional Status N/A [facility] Clinical Notes 05-03-2022 to 11-02-2023 Telephone Encounter - Criss Mccrary - 11/02/2023 10:39 AM EDTTelephone Encounter - Criss Mccrary - 11/02/2023 10:39 AM Soraida Baxter, PhD - 11/02/2022 5:16 PM EDT Note Date & Type Note Facility 11-02-2023 Telephone encounter Note Images from the original note were not included. Records are in Care Everywhere: EP Referral- 11/01/23 (Dr. Shilo Dillon/Cardiology) Criss Mccrary [facility] 11-02-2023 Miscellaneous Notes Images from the original note were not included. Records are in Care Everywhere: EP Referral- 11/01/23 (Dr. Shilo Dillon/Cardiology) Criss Mccrary documented in this encounter [facility] 03-20-2023 Miscellaneous Notes Patient is a 32-year-old [...] prior to transfer. documented in this encounter [facility] 11-03-2022 Miscellaneous Notes PA for Ibsrela initiated electronically. Awaiting response [facility] ID# [id number] Rx BIN [id number] Rx PCN CLAIMCR Rx Grp STOH documented in this encounter [facility] 11-02-2022 History of Present illness Narrative [facility]al [facility] [place] Name: Belgica Harper MR#: [id number] Date: 11/02/2022 Time: 1 hour Referred by: [...] She was given the website for the [facility] Behavioral Medicine Program and shown the relaxation recordings with the recommendation to practice this and the rationale behind their use. Follow-up with Dr. Conteh was discussed as well as encouraging her to continue her PTSD work with a local trauma therapist. Soraida Zhang, Ph.D. documented in this encounter [facility] 11-02-2022 History of Present illness Narrative Assessment ASSESSMENT 32 year old female with medical refractory gastroparesis. PLAN I discussed surgical therapy for gastroparesis in detail. Belgica Harper is candidate for further medical treatment. Needs to stop Wegovy May consider for wireless motility capsule study Constipation medication change per Dr. 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 Maria Dolores Corey DO P Sp Ddsi Clinical Pool Please ask her to see QUAIL FARMER to r/o endometriosis there was a very slight abnormal wave (not strong) suggesting its possible Called and spoke with the patient and relayed providers message. documented in this encounter [facility] 10-18-2022 Miscellaneous Notes PA initiated via Nov[employer]. Await response. Covered: Retail, Mail Order Unknown: Specialty, Long-Term Care Group ID: [id number] Group name: BIN: [id number] PCN: CLAIMCR documented in this encounter [facility] 10-18-2022 History of Present illness Narrative Images from the original note were not included. documented in this encounter [facility] 10-17-2022 Nurse Note EGG completed. Able to drink the 500 ml of water without any difficulty. documented in this encounter [facility] 09-12-2022 Note HNO ID: [id number] Author: RT Amber(R) Service: Nuclear Medicine Author Type: Terrazzo Finisher Helper Type: Progress Notes Filed: 09/12/2022 2:46 PM [...] 10:11AM PATIENT DISCHARGED TO: Ambulatory patient, left [place] department area. A Diagnostic radioactive procedure has taken place, with no further precautions necessary other than routine body substance precautions. More information regarding radiation safety can be found using this link: [email or web address] [email or web address] [email or web address]%20Nuclear%20Med icine%20Procedures.[email or web address] SIGNATURE: Shivani Vasquez RT(R) PATIENT NAME: Belgica Harper DATE: September 12, 2022 TIME: 2:45 PM PAGER/CONTACT #: [facility] 09-12-2022 History of Present illness [...] 10:11AM PATIENT DISCHARGED TO: Ambulatory patient, left [place] department area. A Diagnostic radioactive procedure has taken place, with no further precautions necessary other than routine body substance precautions. More information regarding radiation safety can be found using this link: [email or web address] [email or web address]-%20Diagnostic%20Nucl ear%20Medicine%20Procedures.[email or web address] SIGNATURE: RT Amber(R) PATIENT NAME: Belgica Harper DATE: September 12, 2022 TIME: 2:45 PM PAGER/CONTACT #: documented in this encounter [facility] 08-24-2022 Miscellaneous Notes Lm to confirm procedure for 08-31-22 documented in this encounter [facility] 07-05-2022 Hospital Discharge instructions Patient Education 07/05/2022 [...] [facility] [address] , [place] [address]- Business (1) When:11/04/2022 08:39:10 Comments:With a stone metabolic work-up [facility] 06-23-2022 Miscellaneous Notes Confirmed procedure for 06-30-22 documented in this encounter [facility] 06-15-2022 Note HNO ID: [id number] Author: Monet Osei RDMS Service: Abstract Author Type: Administrative Project Coordinator Type: Progress Notes Filed: 06/15/2022 8:09 PM [...] Osei RDMS June 15, 2022 8:08 PM [facility] 06-15-2022 History of Present illness [...] 2022 8:08 PM documented in this encounter [facility] 06-14-2022 Miscellaneous Notes Images from the original [...] needed pending results documented in this encounter [facility] 06-10-2022 History of Present illness Narrative Radiology [...] 2022 10:01 AM documented in this encounter [facility] 05-27-2022 Note HNO ID: [id number] Author: RT Nakita(Aroldo) Service: Radiology Author Type: [...] RT Nakita(R) May 27, 2022 12:29 PM [facility] 05-27-2022 History of Present illness [...] 2022 12:29 PM documented in this encounter [facility] 05-27-2022 History of Present illness Narrative Chief [...] follow up with Dr. Hylton who is caddy master We discussed seeing endocrinology to help with [...] follow-ups on file. documented in this encounter [facility] 05-03-2022 Evaluation note Encounter Date Diagnosis Assessment Notes Apr, ENGLISH (nonalcoholic steatohepatiti s) (ICD-10 - K75.81) Apr, Abnormal ultrasound (ICD-10 - R93.89) Apr, Elevated liver enzymes (ICD-10 - R74.8) Apr, Liver cyst (ICD-10 - K76.89) [employer] Other Evaluation + Plan note Future Appointments Appointment Date:06/30/2022 10:00:00 AM Scheduled Provider: [facility] Appointment Type:Urology CALL PAT FT Appointment Date:07/05/2022 08:15:00 AM Scheduled Provider: Location:[facility] Appointment Type:Urology FT Diagnostic Tests Pending * Urine Culture 06/29/22 [facility] + Plan note Future Appointments Appointment Date:11/07/2022 03:15:00 PM Scheduled Provider:Madhuri MISHRA MD Location:[facility] Appointment Type:URO Office Visit [facility] noteNo assessment information available [facility] Work Phone: Evaluation note* Diagnosis Fatty liver- Primary Other chronic nonalcoholic liver disease Bilious vomiting with nausea Right sided abdominal pain Abdominal pain, unspecified site Nausea Nausea alone History of diverticulitis SOB (shortness of breath) Shortness of breath [facility]* Diagnosis Liver lesion- Primary Other specified disorders of liver documented [facility]* Diagnosis Gastroparesis- Primary [facility]* Diagnosis Gastroparesis- Primary documented [facility]* Diagnosis Irritable bowel syndrome with constipation- Primary Irritable bowel syndrome documented [facility]* Diagnosis Gastroparesis [facility] Diagnosis Gastroparesis- Primary [facility]* Diagnosis SOB (shortness of breath) Shortness of breath [facility] Diagnosis Liver lesion Other specified disorders of liver documented [facility]* Diagnosis Elevated LFTs Other abnormal blood chemistry documented in this encounter [facility] note* Diagnosis Bilious vomiting with nausea Right sided abdominal pain Abdominal pain, unspecified site Nausea Nausea alone documented in this encounter [facility] note* Diagnosis Nausea Nausea alone [facility]* Diagnosis Gastroparesis- Primary documented in this encounter [facility] general Narrative - Reported* Type Description Date Medical History Anxiety Medical History Depression Medical History Diverticulosis Medical History bipolar Surgical History C section Surgical History hysterectomy Hospitalization History see above Hospitalization History diverticulitis 01/24/18 Hospitalization History NONE ON THE LAST YEAR [employer] Other Hospital course Narrative No data available for this section [facility] Dis[facility] instructions No data available for this section [facility] No data available for this section [facility] for referral (narrative)* Outpatient Procedure (Routine) - Authorized Specialty Diagnoses / Procedures Referred By Norma t Referred To Contact [facility] Diagnoses Bilious vomiting with nausea Right sided abdominal pain Procedures EGD DIAGNOSTIC ESOPHAGOGASTRODUODENOSC OPY TRANSORAL [place] [address] [place] [address] [facility] [place] [address] [place] [address] Referral ID Status Reason Start Date Expiration Date Visits Requested Visits Authorized [id number] Authorized Auto-Generat ed Referral 05/27/2022 05/27/2023 1 1 * MRI/CT (Routine) - Authorized Specialty Diagnoses / Procedures Referred By Norma kennedy Referred To Contact CT IMAGING Diagnoses Bilious vomiting with nausea Right sided abdominal pain Nausea Procedures CT ABD/PEL WO IVCON CT ABD & P[place] [address] [place] [address] Ct Imaging Referral ID Status Reason Start Date Expiration Date Visits Requested Visits Authorized [id number] Authorized Auto-Generat ed Referral 05/27/2022 06/26/2023 1 1 [facility] for referral (narrative)* Diagnostic Procedure Only (Routine) - Authorized Specialty Diagnoses / Procedures Referred By Norma kennedy Referred To Contact US IMAGING Diagnoses Liver lesion Procedures US ABD RT UPPER QUADRANT US ABDOMINAL REAL [place] W/[place] [address] [place] [address] [facility] Referral ID Status Reason Start Date Expiration Date Visits Requested Visits Authorized [id number] Authorized Auto-Generat ed Referral 06/14/2022 07/14/2023 1 1 [facility] for referral (narrative)* Diagnostic Procedure Only (Routine) - Closed Specialty Diagnoses / Procedures [facility] Referred To Contact US IMAG[facility] Diagnoses Liver lesion Procedures US ABD RT UPPER QUADRANT US ABDOMINAL REAL [place] W/[place] [address] [place] [address] [place] [address] Referral ID Status Reason Start Date Expiration Date V isits Requested Visits Authorized [id number] Closed Auto-Generate d Referral 06/14/2022 07/14/2023 1 1 [facility] for referral (narrative)* Diagnostic Procedure Only (Routine) - Closed Specialty Diagnoses / Procedures [facility] Referred To Contact US IMAGING Diagnoses Elevated LFTs Procedures US ABD RT UPPER QUADRANT US ABDOMINAL REAL TIME W/IMAGE [place] [address] [address] Us Imaging [id number] Referral ID Status Reason Start Date Expiration Date V isits Requested Visits Authorized [id number] Closed Auto-Generate d Referral 11/24/2021 12/24/2022 1 1 T [facility] for referral (narrative)* Diagnostic Procedure Only (Routine) - Closed Specialty Diagnoses / Procedures [facility] Referred To Contact MOLECULAR & FUNCTIONAL IMAGING Diagnoses Nausea Procedures NM GASTRIC EMPTYING SOLID [place]STRIC [place] [address] [place] [address] Molecular & Functional Imaging [address] [place] [address] Referral ID Status Reason Start Date Expiration Date V isits Requested Visits Authorized [id number] Closed Auto-Generate d Referral 08/31/2022 09/30/2023 1 1 [facility] for referral (narrative)* Outpatient Procedure (Routine) - Authorized Specialty Diagnoses / Procedures [facility] Referred To Contact [facility] Diagnoses Gastroparesis Procedures ECG COMPLETE ECG ROUTINE ECG W/LEAST 12 LDS W/I&R Solo Mora MD [address] [id number] [facility] [place] [id number] Referral ID Status Reason Start Date Expiration Date Visits Requested Visits Authorized [id number] Authorized Auto-Generat ed Referral 11/02/2023 11/01/2024 1 1 [facility] for visit NarrativePATIENT HERE AT THE REQUEST OF DR. HAGEN FOR ENGLISH & ABNORMAL US. ULTRASOUND AND LABS IN REFERRAL. PATIENT STATES SHE FEELS LETHARGIC & HAS OCCASIONAL ABDOMINAL PAINWaldron Mira Rehab Other Reason for visit Narrative* Diagnostic Procedure Only (Routine) - Closed Specialty Diagnoses / Procedures [facility] Referred To Contact US IMAGING Diagnoses Liver lesion Procedures US ABD RT UPPER QUADRANT US ABDOMINAL REAL [place] W/[place] [address] [place] [address] Us Imaging [id number] Referral ID Status Reason Start Date Expiration Date V isits Requested Visits Authorized [id number] Closed Auto-Generate d Referral 06/14/2022 07/14/2023 1 1 [facility] for visit Narrative* Diagnostic Procedure Only (Routine) - Closed Specialty Diagnoses / Procedures [facility] Referred To Contact US IMAGING Diagnoses Elevated LFTs Procedures US ABD RT UPPER QUADRANT US ABDOMINAL REAL TIME W/[place] [address] [place] [address] Us Imaging [id number] Referral ID Status Reason Start Date Expiration Date V isits Requested Visits Authorized [id number] Closed Auto-Generate d Referral 11/24/2021 12/24/2022 1 1 [facility] for visit Narrative* Diagnostic Procedure Only (Routine) - Closed Specialty Diagnoses / Procedures Referred By Norma t Referred To Contact MOLECULAR & FUNCTIONAL IMAGING Diagnoses Nausea Procedures NM GASTRIC EMPTYING SOLID [place]STRIC [place] [address] [place] [address] Molecular & Functional Imaging [address] [place], [place] [id number] Referral ID Status Reason Start Date Expiration Date V isits Requested Visits Authorized [id number] Closed Auto-Generate d Referral 08/31/2022 09/30/2023 1 1 [facility] Summary Purpose Family History No Family History [...] & PELVIS W/[place] [address] [place] [address] [place] [address] Referral ID Status Reason Start Date Expiration Date V isits Requested Visits Authorized [id number] Closed Auto-Generate d Referral 05/27/2022 06/26/2023 1 1 Additional Source Comments INFORMATION SOURCE (unrecogn ized section and content) DATE CREATED AUTHOR 11/09/2018 [facility] DATE CREATED AUTHOR AUTHOR'S ORGANIZ ATION 08/23/2021 [facility] dical Specialist DATE CREATED AUTHOR AUTHOR'S ORGANIZ ATION 07/17/2022 [facility] DATE CREATED AUTHOR AUTHOR'S ORGANIZ ATION 10/29/2022 [facility] DATE CREATED AUTHOR AUTHOR'S ORGANIZ ATION 10/31/2022 [facility] DATE CREATED AUTHOR AUTHOR'S ORGANIZ ATION 03/22/2023 [facility] DATE CREATED AUTHOR AUTHOR'S ORGANIZ ATION 03/28/2023 [facility] DATE CREATED AUTHOR AUTHOR'S ORGANIZ ATION 11/23/2023 [facility] DATE CREATED AUTHOR AUTHOR'S ORGANIZ ATION 12/03/2023 [facility] DATE CREATED AUTHOR AUTHOR'S ORGANIZ ATION 12/06/2023 [facility] dical Specialists [facility] Care Teams (unrecognized sec tion and content) Team Status: Active Member Role Status Dates Giovani Hagen MD Primary Care Provider Active Team Status: Inactive Member Role Status Dates Erwin Hylton MD Attending Provider Active Giovani Hagen MD Primary Care Provider Active Completion Engineer Relationship Specialty Start Date End Date Giovani Hageny [address] [facility] [address] [place] [address] PCP - General Family Medicine 03/27/19 Completion Engineer Relationship Specialty Start Date End Date Giovani Hagenalay [address] [facility] [address] [place] [address] PCP - General Family Medicine 03/27/19 Completion Engineer Relationship Specialty Start Date End Date Giovani Hagenalay [address] [facility] [address] [place] [address] PCP - General Family Medicine 03/27/19 Completion Engineer Relationship Specialty Start Date End Date Giovani Hagenalay [address] [place] [address] [place] [address] PCP - General Family Medicine 03/27/19 Completion Engineer Relationship Specialty Start Date End Date Giovani Hagenalay [address] [place] [address] [place] [address] PCP - General Family Medicine 03/27/19 Completion Engineer Relationship Specialty Start Date End Date CreolaGiovani lunaalay [address] [facility] [address] [place] [address] PCP - General Family Medicine 03/27/19 Completion Engineer Relationship Specialty Start Date End Date Giovani Hagen [address] [place] [address] [place] [address] PCP - General Family Medicine 03/27/19 Completion Engineer Relationship Specialty Start Date End Date Giovani Hagen [address] [place] [address] [place] [address] PCP - General Family Medicine 03/27/19 Completion Engineer Relationship Specialty Start Date End Date Giovani Hagen [address] [place] [address] [place] [address] PCP - General Family Medicine 03/27/19 Completion Engineer Relationship Specialty Start Date End Date Giovani Hageny [address] [place] [address] [place] [address] PCP - General Family Medicine 03/27/19 Completion Engineer Relationship Specialty Start Date End Date Giovani Hagen [address] [place] [address] [place] [address] PCP - General Family Medicine 03/27/19 Completion Engineer Relationship Specialty Start Date End Date Giovani Hagen [address] [place] [address] [place] [address] PCP - General Family Medicine 03/27/19 Completion Engineer Relationship Specialty Start Date End Date Giovani Hagen [address] [place] [address] [place] [address] PCP - General Family Medicine 03/27/19 Completion Engineer Relationship Specialty Start Date End Date Giovani Hagen [address] [place] [address] [place] [address] PCP - General Family Medicine 03/27/19 Completion Engineer Relationship Specialty Start Date End Date Giovani Hagen MD [address] [place] [address] [place] [address] PCP - General Family Medicine 03/27/19 Completion Engineer Relationship Specialty Start Date End Date Giovani Hagen MD [address] [place] [address] [place] [address] PCP - General Family Medicine 03/27/19 Completion Engineer Relationship Specialty Start Date End Date Giovani Hagen MD [address] [place] [address] [place] [address] PCP - General Family Medicine 03/27/19 Completion Engineer Relationship Specialty Start Date End Date Giovani Hagen MD [address] [place] [address] [place] [address] PCP - General Family Medicine 03/27/19 Completion Engineer Relationship Specialty Start Date End Date Giovani Hagen MD [address] [place] [address] [place] [address] PCP - General Family Medicine 03/27/19 Completion Engineer Relationship Specialty Start Date End Date Giovani Hagen MD [address] [place] [address] [place] [address] PCP - General Family Medicine 03/27/19 Completion Engineer Relationship Specialty Start Date End Date Giovani Hagen MD [address] [place] [address] PCP - General Family Medicine 03/27/19 Completion Engineer Relationship Specialty Start Date End Date Giovani Hagen MD [address] [place] [address] PCP - General Family Medicine 03/27/19 Completion Engineer Relationship Specialty Start Date End Date Giovani Hagen MD [address] [place] [address] PCP - General Family Medicine 03/27/19 Completion Engineer Relationship Specialty Start Date End Date Giovani Hagen MD [address] [place] [address] PCP - General Family Medicine 03/27/19 Source Comments (unrecognize d section and content) In the event this informatio n is protected by the Federal Confidentiality of Alcohol and Drug Abuse Patient Records regulations: The Federal rules restrict any use of the information to criminally investigate or prosecute any alcohol or drug abuse patient.[facility] CenterIn the event this information is protected by the Federal Confidentiality of Alcohol and Drug Abuse Patient Records regulations: The Federal rules restrict any use of the information to criminally investigate or prosecute any alcohol or drug abuse patient.[facility] CenterIn the event this information is protected by the Federal Confidentiality of Alcohol and Drug Abuse Patient Records regulations: The Federal rules restrict any use of the information to criminally investigate or prosecute any alcohol or drug abuse patient.[facility] CenterIn the event this information is protected by the Federal Confidentiality of Alcohol and Drug Abuse Patient Records regulations: The Federal rules restrict any use of the information to criminally investigate or prosecute any alcohol or drug abuse patient.[facility] CenterIn the event this information is protected by the Federal Confidentiality of Alcohol and Drug Abuse Patient Records regulations: The Federal rules restrict any use of the information to criminally investigate or prosecute any alcohol or drug abuse patient.[facility] CenterIn the event this information is protected by the Federal Confidentiality of Alcohol and Drug Abuse Patient Records regulations: The Federal rules restrict any use of the information to criminally investigate or prosecute any alcohol or drug abuse patient.[facility] CenterIn the event this information is protected by the Federal Confidentiality of Alcohol and Drug Abuse Patient Records regulations: The Federal rules restrict any use of the information to criminally investigate or prosecute any alcohol or drug abuse patient.[facility] CenterIn the event this information is protected by the Federal Confidentiality of Alcohol and Drug Abuse Patient Records regulations: The Federal rules restrict any use of the information to criminally investigate or prosecute any alcohol or drug abuse patient.[facility] CenterIn the event this information is protected by the Federal Confidentiality of Alcohol and Drug Abuse Patient Records regulations: The Federal rules restrict any use of the information to criminally investigate or prosecute any alcohol or drug abuse patient.[facility] CenterIn the event this information is protected by the Federal Confidentiality of Alcohol and Drug Abuse Patient Records regulations: The Federal rules restrict any use of the information to criminally investigate or prosecute any alcohol or drug abuse patient.[facility] CenterIn the event this information is protected by the Federal Confidentiality of Alcohol and Drug Abuse Patient Records regulations: The Federal rules restrict any use of the information to criminally investigate or prosecute any alcohol or drug abuse patient.[facility] CenterIn the event this information is protected by the Federal Confidentiality of Alcohol and Drug Abuse Patient Records regulations: The Federal rules restrict any use of the information to criminally investigate or prosecute any alcohol or drug abuse patient.[facility] CenterIn the event this information is protected by the Federal Confidentiality of Alcohol and Drug Abuse Patient Records regulations: The Federal rules restrict any use of the information to criminally investigate or prosecute any alcohol or drug abuse patient.[facility] CenterIn the event this information is protected by the Federal Confidentiality of Alcohol and Drug Abuse Patient Records regulations: The Federal rules restrict any use of the information to criminally investigate or prosecute any alcohol or drug abuse patient.[facility] CenterIn the event this information is protected by the Federal Confidentiality of Alcohol and Drug Abuse Patient Records regulations: The Federal rules restrict any use of the information to criminally investigate or prosecute any alcohol or drug abuse patient.[facility] CenterIn the event this information is protected by the Federal Confidentiality of Alcohol and Drug Abuse Patient Records regulations: The Federal rules restrict any use of the information to criminally investigate or prosecute any alcohol or drug abuse patient.[facility] CenterIn the event this information is protected by the Federal Confidentiality of Alcohol and Drug Abuse Patient Records regulations: The Federal rules restrict any use of the information to criminally investigate or prosecute any alcohol or drug abuse patient.[facility] CenterIn the event this information is protected by the Federal Confidentiality of Alcohol and Drug Abuse Patient Records regulations: The Federal rules restrict any use of the information to criminally investigate or prosecute any alcohol or drug abuse patient.[facility] CenterIn the event this information is protected by the Federal Confidentiality of Alcohol and Drug Abuse Patient Records regulations: The Federal rules restrict any use of the information to criminally investigate or prosecute any alcohol or drug abuse patient.[facility] CenterIn the event this information is protected by the Federal Confidentiality of Alcohol and Drug Abuse Patient Records regulations: The Federal rules restrict any use of the information to criminally investigate or prosecute any alcohol or drug abuse patient.[facility] CenterIn the event this information is protected by the Federal Confidentiality of Alcohol and Drug Abuse Patient Records regulations: The Federal rules restrict any use of the information to criminally investigate or prosecute any alcohol or drug abuse patient.[facility] CenterIn the event this information is protected by the Federal Confidentiality of Alcohol and Drug Abuse Patient Records regulations: The Federal rules restrict any use of the information to criminally investigate or prosecute any alcohol or drug abuse patient.[facility] CenterIn the event this information is protected by the Federal Confidentiality of Alcohol and Drug Abuse Patient Records regulations: The Federal rules restrict any use of the information to criminally investigate or prosecute any alcohol or drug abuse patient.[facility] CenterIn the event this information is protected by the Federal Confidentiality of Alcohol and Drug Abuse Patient Records regulations: The Federal rules restrict any use of the information to criminally investigate or prosecute any alcohol or drug abuse patient.[facility] CenterIn the event this information is protected by the Federal Confidentiality of Alcohol and Drug Abuse Patient Records regulations: The Federal rules restrict any use of the information to criminally investigate or prosecute any alcohol or drug abuse patient.[facility] CenterIn the event this information is protected by the Federal Confidentiality of Alcohol and Drug Abuse Patient Records regulations: The Federal rules restrict any use of the information to criminally investigate or prosecute any alcohol or drug abuse patient.[facility] Reason for Visit (unrecogniz ed section and [...] & [place] [address] [place] [address] [place] [address] Referral ID Status Reason Start Date Expiration Date V isits Requested Visits Authorized [id number] Closed Auto-Generate d Referral 05/27/2022 06/26/2023 1 [...] BE BASED ON THE PRIMARY CLINICAL RECORDS. [facility]. provides no warranty or guarantee of the accuracy or completeness of information in this document.
[2023-12-13 07:12] LABS: Basophils Percent Auto 0.4 % (0.2-2.0); Eosinophils Absolute Auto 0.2 10^3/uL (0.0-0.7); Eosinophils Percent Auto 2.8 % (0.9-7.0); Hematocrit 41.9 % (36.0-48.0); Hemoglobin 14.2 g/dL (12.0-16.0); Immature Granulocytes Abs Auto 0.03 10^3/uL (0.00-0.03); Immature Granulocytes Pct Auto 0.4 % (0.0-0.5); Lymphocytes Absolute Auto 2.8 10^3/uL (1.2-3.8); Lymphocytes Percent Auto 35.6 % (20.5-60.0); Mean Corpuscular HGB Conc 33.9 g/dL (29.9-35.2); Mean Corpuscular Hemoglobin 32.1 pg (26.7-34.0); Mean Corpuscular Volume 94.8 fL (81.0-99.0); Mean Platelet Volume 10.4 fL (9.5-13.5); Monocytes Absolute Auto 0.5 10^3/uL (0.3-0.8); Neutrophils Absolute Auto 4.3 10^3/uL (1.4-6.5); Neutrophils Percent Auto 54.8 % (43.0-75.0); Platelet Count 265 10^3/uL (150-450); Red Blood Count 4.42 10^6/uL (4.20-5.40); Red Cell Distribution Width 12.4 % (11.0-15.0); White Blood Count 7.8 10^3/uL (4.0-11.0)
[2023-12-13 07:31] LABS: Alanine Aminotransferase 114 U/L (14-59); Albumin Globulin Ratio 1.3; Albumin Level 4.2 g/dL (3.4-5.0); Alkaline Phosphatase 105 U/L (46-116); Aspartate Amino Transferase 47 U/L (15-37); Bilirubin Direct 0.1 mg/dL (0.0-0.2); Bilirubin Total 0.7 mg/dL (0.2-1.0); Globulin 3.2 g/dL; Total Protein 7.4 g/dL (6.4-8.2)
== END 2023-12-13 06:46 | disposition home or self-care (01) ==
PROVIDERS: PCP Family Medicine; Visit Provider Podiatrist
DX: Z00.00 Encounter for general adult medical examination without abnormal findings (principal); F31.73 Bipolar disorder, in partial remission, most recent episode manic; B35.1 Tinea unguium
CPT/HCPCS: 36415; 80061; 80076; 85025

== ENCOUNTER 2024-01-10 15:21 | Emergency (ER) | payer OTHER, SELFPAY ==
[2024-01-10 15:33] VITALS: BP 155/108; PULSE 115; TEMP 37.2; O2SAT 98; BMI 34.2
--- NOTE | 2024-01-10 15:43 | XR_ITS ---
The [address] [address] Patient Name: ORION HARPER MRN: [id number] date: 1990 Sex: F Assigned Patient Location: ER Current Patient Location: [facility] Accession/Order Number: [id number] Exam Date: 01/10/2024 16:05 Report Date: 01/10/2024 17:42 At the request of: MICHELLE WILCOX Procedure: XR ankle RT min 3V RIGHT ANKLE X-RAYS, 01/10/2024. HISTORY: Trauma. Right ankle pain. COMPARISON: None. FINDINGS: 3 views obtained. There is soft tissue swelling around the ankle. The talar dome and ankle mortise are intact. No dislocation. Small well-corticated ossicle along the inferior aspect of the medial malleolus is probably related to prior trauma. No acute fracture identified. No dislocation. No degenerative changes. XR/XR ankle RT min 3V IMPRESSION: 1. No acute fracture or dislocation identified. 2. Soft tissue swelling around the ankle. 3. There is a well-corticated ossicle along the lateral malleolus likely related to prior trauma. Electronically authenticated by: JOSE SOLO Date: 01/10/2024 17:42
--- NOTE | 2024-01-10 15:43 | XR_ITS ---
The [address] [address] Patient Name: ORION HARPER MRN: [id number] date: 1990 Sex: F Assigned Patient Location: ER Current Patient Location: ED.MAIN Accession/Order Number: [id number] Exam Date: 01/10/2024 16:05 Report Date: 01/10/2024 17:42 At the request of: MICHELLE WILCOX Procedure: XR foot RT min 3V RIGHT FOOT X-RAYS, 01/10/2024. HISTORY: Trauma. Right foot pain. COMPARISON: None. FINDINGS: 3 views obtained. Bone mineralization normal. Alignment normal. There is no fracture or dislocation. No radiopaque foreign body or soft tissue gas. XR/XR foot RT min 3V IMPRESSION: No fracture or dislocation. Electronically authenticated by: JOSE SOLO Date: 01/10/2024 17:42
--- OUTSIDE RECORDS SUMMARY | 2024-01-10 15:44 | XMS_ITS | CCD ---
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 Name Role Phone SHIVANI MONTEIRO Referring Unavailable GIOVANI HAGEN Primary Care Unavailable MD Erwin Hylton Attending Provider MD Giovani Hagen Primary Care Provider [phone] Giovani Hagen Primary Care Provider Erwin Hylton Unavailable GIOVANI HAGEN Primary Care Physician [phone] LASHANDAASIK ., DR SIMON Consulting Unavailabl e [...] Unavailable MISHRA ., DR DHALIWAL Admitting Unavailable Jed, Jackson Consulting Unavailable POPPY ., BERONICA Consulting Unavailable [...] Provider MD Giovani Hagen Primary Care Provider [phone] DAKHIL, NOMA [facility] Un[facility] DAKHIL, NOMA Referring Unavailable [facility] Unavailable DAKHIL, NOMA Referring Unavailable [facility] Unavailable MARIA DOLORES COREY Referring Unavailable [facility] Unavailable Asaad, Imad Admitting Unavailable Asaad, Imad Attending Un[facility]available Asaad, Imad Admitting Unavailable Asaad, Imad Attending [facility]available [facility] Care Provider BLOODMARY Admitting Unavailable BLOOD, MARY Culver Attending Unavailable JACKSON MONTENEGRO Consulting Unavailable SONIYA PATEL Referring Unavailable HIEU, [facility] Primary Care Unavailable MAKENNA AMAYA Consulting Unavailable Deposit [facility] Primary Care Provider GIOVANI HAGEN Attending Unavailable GIOVANI HAGEN Attending Unavailable CADE WILCOX Attending Unavailable GIOVANI HAGEN Attending Unavailable GIOVANI HAGEN Attending Unavailable GIOVANI HAGEN Attending Unavailable AKUA DU Attending Unavailable Madhuri MISHRA Attending Unavailable BHAVESH DEJESUS Attending Unavailable SOLO MORA Attending Unavailable GIOVANI HAGEN KARYNYIN Primary Care Unavailable SOLO MORA Referring Unavailable HIEUGIOVANI Mcclellan KARYNYIN Primary Care Unavailable [facility]IEUG[facility]OVANI [facility]cc[facility]an [facility] Unavailable Allergies Allergy Classification Reported Allergen(s) Allergy Type Date of Onset Reaction(s) Facility Iodine (and Iodine containting drugs) (2 sources) Iodine Drug Allergy 9 Swelling, Itching [facility] Iohexol (2 sources) Iohexol Drug Allergy [address] [facility] (20 sources) Iodine; Translations: [IODINE] Drug Allergy 9 Swelling, Itching [facility] (20 sources) Iohexol; Translations: [IOHEXOL] Drug Allergy [address] [facility] (1 source) Cat Propensity to adverse reactions anaphylaxis [facility] Other (1 source) tree nut, unspecified Propensity to adverse reactions anaphylaxis [facility] Other (1 source) peanut allergenic extract Drug Allergy [facility] (1 source) Cat/Feline Product Derivatives Drug allergy (disorder) 3 [facility] (1 source) No Known Medication Allergies; Translations: [No Known Medication Allergies] Propensity to adverse reactions (disorder) [facility] Medications Current Medications Medication Drug Class(es) Dates Sig (Normalized) Sig (Original) acetaminophen 1000 mg oral tablet (3 sources) Start: 06-12-2018 take 1000 mg by mouth once daily as needed for pain Tylenol 1,000 mg, Oral, Daily, PRN as needed for pain, Refills(s) 0 Start Date: 06/12/18 Status: Ordered Albuterol (4 sources) beta2-Adrenergic Agonist Start: 12-17-2018 albuterol 2 puffs every 4 hours as needed for SOB/wheezing, Refills(s) 0 Start Date: 12/17/18 Status: Ordered take 2 puff(s) by in halation every four hours as needed Albuterol Sulfate HFA 108 (90 Base) MCG/ACT 2 puff as needed Inhalation every 4 hrs Active ALPRAZolam 0.5 mg oral tablet (20 sources) Benzodiazepine Start: 02-18-2019 take 0.25 mg by mouth twice daily ALPRAZolam (XANAX) 0.5 mg tablet Take 0.25 mg by mouth two times a day. 0 02/18/2019 Active Start: 06-12-2018 take 1 tablet by vanna th twice daily as needed for anxiety Xanax 0.25 mg Tab 0.25 mg = 1 tab(s), Oral, BID, PRN as needed for anxiety, Refills(s) 0 Start Date: 06/12/18 Status: Ordered Comment on above: Take 0.25 mg by mout h twice daily. 24 hr amphetamine aspartate 7.5 mg / amphetamine sulfate 7.5 mg / dextroamphetamine saccharate 7.5 mg / dextroamphetamine sulfate 7.5 mg extended release oral capsule (4 sources) Central Nervous System Stimulant take 1 capsule by mouth once daily amphetamine-dext roamphetamine XR (ADDERALL XR) 30 mg capsule Take 30 mg by mouth once daily. Active Baclofen (17 sources) gamma-Aminobutyric Acid-ergic Agonist Start: baclofen Oral, TID Start Date: 06/29/22 Status: Ordered Start: 05-25-2022 End: 11-02-2022 baclofen (LIORESAL) 10 mg ta blet bismuth subcitrate 140 mg / metroNIDAZOLE 125 mg / tetracycline hydrochloride 125 mg oral capsule (1 source) Nitroimidazole Antimicrobial, Tetracycline-class Antimicrobial Start: 07-04-2022 End: 07-14-2022 take 3 capsules by mouth at bedtime Bis Subcit Ilh-Dcoih-Fxgxecyo (PYLERA) 140-125-125 mg per capsule Take 3 capsules by mouth before meals and at bedtime for 10 days. 120 capsule 0 07/04/2022 07/14/2022 Active Comment on above: Take 3 capsules by m outh before meals and at bedtime for 10 days. buPROPion (20 sources) Aminoketone Start: 06-29-2022 Wellbutrin SR Oral, BID Start Date: 3/8/23 Status: Ordered Start: 05-25-2022 End: 12-19-2023 buPROPion SR (ZYBAN SR; WELL BUTRIN SR) 150 mg 12 hr tablet 05/25/2022 12/19/2023 Discontinued (Other) take 1 tablet by vanna every twelve hours Wellbutrin XL 150 MG 1 tablet in the morning Orally TWICE A DAY Active cariprazine 4.5 mg oral capsule (20 sources) Atypical Antipsychotic Start: 12-28-2023 take 1 mg by mouth once daily Vraylar 4.5 mg oral capsule mg cap(s), Oral, Daily Start Date: 12/28/23 Status: Ordered Start: 05-01-2019 take 1 capsule by mo [facility] once daily Vraylar 1.5 mg oral capsule 1.5 mg = 1 cap(s), Oral, Daily Start Date: 05/01/19 Status: Ordered End: 12-19-2023 take 1 capsule by mouth once daily cariprazine (VRAYLAR) 4.5 mg capsule Take 4.5 mg by mouth once daily. Active take 1 capsule by mo [facility] once daily cariprazine (VRAYLAR) 3 mg cap Take by mouth once daily. 0 Active Vraylar Active Comment on above: Take by mouth once d aily. 1 capsule. cephalexin 250 mg oral tablet (3 sources) Cephalosporin Antibacterial Start: 12-28-2023 Keflex 250 mg Cap See Instructions, 1 cap po after intercourse to prevent UTI, # 20 cap(s), Refills(s) 2, Pharmacy: [facility]/pharmacy #[id number], 158, cm, 12/28/23 15:24:00 EDT, Height/Length Dosing, 87, kg, 12/28/23 15:24:00 EDT, Weight Dosing Start Date: 12/28/23 Status: Ordered Start: 06-29-2022 take 1 tablet by vanna twice daily, then take 1 tablet by mouth once daily Keflex 500 mg Cap See Instructions, Take 1 tab by mouth twice a day for 10 days. Then take 1 tab once a day for 30 days., # 50 cap(s), Refills(s) 0, Pharmacy: [facility]/pharmacy #[id number], 158, cm, 06/29/22 8:19:00 EST, Height/Length Dosing, 84.8, kg, 06/29/22 8:19:00 EST, Weigh... Start Date: 06/29/22 Status: Ordered EPINEPHrine (1 source) alpha-Adrenergic Agonist, beta-Adrenergic Agonist, Catecholamine EpiPen prn Active ibuprofen 800 mg oral tablet (2 sources) Nonsteroidal Anti-inflammatory Drug Start: 06-12-19 take 800 mg by mouth once daily as needed for pain ibuprofen 800 mg, Oral, Daily, PRN as needed for pain, Refills(s) 0 Start Date: 06/12/18 Status: Ordered sucralfate 1000 mg oral tablet (1 source) Aluminum Complex Start: 07-01-19 End: 07-31-19 take 1 tablet by mouth twice daily before mealtime sucralfate (CARAFATE) 1 gram tablet Take 1 tablet by mouth twice daily before meals. 60 tablet 0 06/30/2022 07/30/2022 Active Comment on above: Take 1 tablet by vanna th twice daily before meals. Tramadol (3 sources) Opioid Agonist Start: 06-30-19 tramadol Oral Start Date: 06/29/22 Status: Ordered [...] pain Mouth/Throat every 3 hrs Apr, Not-Taking lisdexamfetamine dimesylate 10 mg oral capsule (17 sources) Central Nervous System Stimulant End: 12-19-2023 take 1 capsule by mouth once daily lisdexamfetamine (VYVANSE) 10 mg capsule Take 10 mg by mouth once daily. 12/19/2023 Discontinued (Other) take 1 capsule by [facility] every twenty-four hours Vyvanse 50 MG 1 capsule in the morning Orally Once a day Active Comment on above: Take 10 mg by mouth once daily. 50/50 release 24 hr methylphenidate hydrochloride 20 mg extended release oral capsule (14 sources) Central Nervous System Stimulant Start: End: take 1 capsule by mouth once daily [...] tablet (14 sources) Serotonin-3 Receptor Antagonist Start: End: take 1 tablet by mouth three times daily as needed ondansetron orally disintegrating (ZOFRAN ODT) 8 mg disintegrating tablet DISSOLVE 1 TABLET ON THE TONGUE 3 TIMES A DAY NEEDED 0 02/08/2019 11/02/2022 Discontinued Comment on above: DISSOLVE 1 TABLET ON THE TONGUE 3 TIMES A DAY NEEDED pantoprazole 40 mg delayed release oral tablet (20 sources) Proton Pump Inhibitor Start: 023 End: 024 take 1 tablet by mouth twice daily before mealtime pantoprazole DR (PROTONIX) 40 mg tablet Indications: Helicobacter pylori gastritis Take 1 tablet by mouth twice daily before meals for 14 days. 28 tablet 09/01/2022 12/19/2023 Discontinued (Other) Start: 07-04-2022 End: 07-14-2022 take 1 tablet [...] 14 days. prucalopride 2 mg oral tablet (12 sources) Start: 10-17-2022 End: 12-19-2023 take 1 tablet by mouth once daily prucalopride 2 mg tablet (MOTEGRITY) Indications: Chronic idiopathic constipation Take 1 tablet (2 mg) by mouth once daily. 30 tablet 6 10/17/2022 12/19/2023 Discontinued (Other) Comment on above: Take 1 tablet (2 mg) by mouth once daily. tenapanor 50 mg oral tablet (8 sources) Start: 11-02-2022 End: 12-19-2023 take 1 tablet by mouth twice daily tenapanor (IBSRELA) 50 mg tablet Indications: Irritable bowel syndrome with constipation Take 1 tablet (50 mg) by mouth twice daily. 60 tablet 5 11/02/2022 12/19/2023 Discontinued (Other) Comment on above: Take 1 tablet (50 mg ) by mouth twice daily. Problems Active Problems Problem Classification Problem Date Documented Da te Episodic/Chronic Abdominal pain (6 sources) Right sided abdominal pain; Translations: [Unspecified abdominal pain] Onset: 10-20-2021 Episodic Anxiety disorders (1 source) Anxiety disorder, unspecified; Translations: [ANXIETY DISORDER UNSPECIFIED] Onset: 10-22-2021 Chronic Calculus of urinary tract (8 sources) Kidney stone; Translations: [Calculus of kidney] Onset: 06-30-2022 06-29-2022 Episodic Genitourinary symptoms and ill-defined conditions (6 sources) Dysuria; Translations: [Increased frequency of urination] [...] Translations: [Bilious vomiting] Onset: 09-12-2022 Episodic Other female genital disorders (4 sources) [...] infection, unspecified] Onset: 03-23-2023 Episodic Substance-related disorders (4 sources) Smoker; Translations: [Nicotine dependence] Onset: 12-28-2023 10-12-2018 Chronic Comment on above: Added secondary to d ocumentation in Social History. Syncope (3 sources) Syncope and collapse; Translations: [Syncope and collapse] 12-19-2023 Episodic Unclassified (3 sources) LOW BACK PAIN, UNSPECIFIED; Translations: [LOW BACK PAIN, UNSPECIFIED] Onset: 09-10-2021 Urinary tract infections (11 sources) Recurrent urinary tract infection; Translations: [Urinary tract infectious disease] Onset: 06-29-2022 06-29-2022 Episodic Past or Other Problems Problem Classification Problem Date Documented Date Episodic/Chronic E Codes: Fall (1 source) Unspecified fall, initial encounter; Translations: [UNSPECIFIED FALL INITIAL ENCOUNTER] Onset: 09-10-2021 Episodic Other disorders of stomach and duodenum (17 sources) Gastroparesis syndrome; Translations: [Gastroparesis] Onset: 11-02-2022 Episodic Other disorders of stomach and duodenum (2 sources) Gastroparesis; Translations: [Gastroparesis] Onset: 10-17-2022 Episodic Other lower respiratory disease (1 source) [...] Test Name Value Interpretation Reference Range Facility Ambulatory Visit Summaryon 0 12-28-2023 Ambulatory Visit Summary Ambulatory Visit Summary BELGICA HARPER :1990 Visit Date:12/28/2023 Ambulatory Visit Instructions Your Diagnosis Recurrent UTI Kidney stones Smoker Your Care Team Attending Physician - BHAVESH DEJESUS PA-C Primary Care Physician - HIEU FRIEDMAN, GIOVANI Bob This Is Your Medications List acetaminophen (Tylenol) albuterol alprazolam (Xanax 0.25 mg Tab) baclofen cariprazine (Vraylar 4.5 mg oral capsule) tramadol Procedures Performed Cystourethroscopy with dilation of urethral stricture (05/01/2019), Facet Medial Branch Block (09/18/2018), Injection of sacroiliac joint using fluoroscopic guidance (07/31/2018), Injection of sacroiliac joint using fluoroscopic guidance (07/02/2018), section, section, section, Cholecystectomy, Hysterectomy. Discharge Vitals Heart Rate (Peripheral) 101 Respiratory Rate 18 Blood Pressure 146/100 Height 158 cm Height 62 in Weight 87 kg Weight 191.4 lb BMI 34.85 What to do next Scheduled Follow-Up Appointments Monday 3:15 PM EDT With: DANICA FRIEDMAN, Madhuri Kendrick Where: [facility] [place] [address]- Medications What How Much When Instructions Unchanged acetaminophen (Tylenol) 1,000 Milligram By Mouth Every day as needed for as needed for pain Unchanged albuterol 2 puffs every 4 hours as needed for SOB/ wheezing Unchanged alprazolam (Xanax 0.25 mg Tab) 1 Tablets By Mouth 2 times a day as needed for as needed for anxiety Unchanged baclofen By Mouth 3 times a day Unchanged cariprazine (Vraylar 4.5 mg oral capsule) By Mouth Every day Unchanged tramadol By Mouth Allergies No Known Medication Allergies Problems Ongoing - Any problem that you are currently receiving treatment for. Kidney stones Recurrent UTI Smoker Historical - Any problem that you are no longer receiving treatment for. Dysuria Urinary frequency UTI (urinary tract infection) Patient Survey You may receive a survey via text or e-mail asking about your office visit. Please share your experience with us by completing your survey. We appreciate your feedback and thank you for choosing us for your care. Normal Villafuerte [facility] Urology Office/Clinic Noteon 12-28-2023 Urology Office/Clinic Note Urology Office/Clinic Note Chief Complaint Patient is here for follow up with KUB HPI Staff 1 year with KUB done 11/16/23. Dx: recurrent UTI and kidney stones Patient has been having recurrent UTI's. She does [facility] [employer] thru [employer] and gets abx without being seen. She was given Amoxicillin but saves some of the pills for when UTI comes back. She denies pain or burning. She gets UTI when she has sexual relations with her . Denies blood, she gets up 1-2 times per night to urine. Leaks with exercise, cough, sneeze, or puking. Does not wear a pad. Review of Systems PHQ Score Initial Depression Screen Score: 0 SCORE no fever, chills, malaise, myalgia. no rash/lesions. no chest pain, palpitations, or SOB. no abdominal pain, nausea, vomiting. no unilateral calf swelling, redness, pain Physical Exam Vitals & Measurements HR: 101(Peripheral) RR: 18 BP: 146/100 HT: 62 in HT: 158 cm WT: 87 kg WT: 191.4 lb BMI: 34.85 General: nontoxic, NAD Mouth: moist mucosa Lungs: normal respiratory effort Cardio: regular rate, good distal perfusion Abdomen: nondistended, no suprapubic distention or tenderness, no CVA tenderness Neurologic: Grossly normal Skin: No rashes or suspicious lesions Assessment/Plan 1. Recurrent UTI (N39.0: Urinary tract infection, site not specified) S/p Cysto/UD 05/01/19 and 07/05/22 - dilated to 30Fr Pt has had about a half dozen UTIs in the past year. Uses telehealth to get abx. Says it happens every times she has sex, despite urinating afterwards. UA today negative for blood and infection. Discussed option of starting post-coital prophylactic abx. Side effects/risks discussed. Pt would like to do this. Ordered: cephalexin, See Instructions, 1 cap po after intercourse to prevent UTI, # 20 cap(s), Refills(s) 2, Pharmacy: [facility]/pharmacy #[id number], 158, cm, 12/28/23 15:24:00 EDT, Height/Length Dosing, 87, kg, 12/28/23 15:24:00 EDT, Weight Dosing E&M of Est. Patient Moderate 30-39 Min 98762 2. Kidney stones (N20.0: Calculus of kidney) S/p R ESWL. KUB 06/29/22 at [facility] - negative Metabolic workup 07/08/22 - slightly elevated Na (149), low output volume (1000 mL) KUB 11/16/23 - negative no recent flank pain, gross hematuria, stone passage. continue stone prevention diet repeat imaging 1 yr Ordered: cephalexin, See Instructions, 1 cap po after intercourse to prevent UTI, # 20 cap(s), Refills(s) 2, Pharmacy: [facility]/pharmacy #[id number], 158, cm, 12/28/23 15:24:00 EDT, Height/Length Dosing, 87, kg, 12/28/23 15:24:00 EDT, Weight Dosing E&M of Est. Patient Moderate 30-39 Min 54562 Urnls Dip Stick Auto w/o Microscopy POC 26453 3. Smoker (F17.200: Nicotine dependence, unspecified, uncomplicated) cessation encouraged Ordered: cephalexin, See Instructions, 1 cap po after intercourse to prevent UTI, # 20 cap(s), Refills(s) 2, Pharmacy: [facility]/pharmacy #[id number], 158, cm, 12/28/23 15:24:00 EDT, Height/Length Dosing, 87, kg, 12/28/23 15:24:00 EDT, Weight Dosing E&M of Est. Patient Moderate 30-39 Min 14828 Follow-up With When Contact Information BHAVESH DEJESUS PA-C, URL Within 1 year Additional Instructions: Patient Education Kidney Stones, [id number] Problem List/Past Medical History Ongoing Kidney stones Recurrent UTI Smoker Historical Dysuria Urinary frequency UTI (urinary tract infection) Procedure/Surgical History Cystourethroscopy with dilation of urethral stricture (05/01/2019), Facet Medial Branch Block (09/18/2018), Injection of sacroiliac joint using fluoroscopic guidance (07/31/2018), Injection of sacroiliac joint using fluoroscopic guidance (07/02/2018), section, section, section, Cholecystectomy, Hysterectomy. Medications albuterol baclofen, Oral, TID Keflex 250 mg Cap, See Instructions, 2 refills tramadol, Oral Tylenol, 1000 mg, Oral, Daily, PRN Vraylar 4.5 mg oral capsule, Oral, Daily Xanax 0.25 mg Tab, 0.25 mg= 1 tab(s), Oral, BID, PRN Allergies No Known Medication Allergies Social History Alcohol - Low Risk, 08/27/2018 Current, Beer, 1-2 times per week, 06/12/2018 Substance Abuse - Denies Substance Abuse, 06/12/2018 Tobacco - Denies Tobacco Use, 08/27/2018 Former smoker, quit more than 30 days ago Tobacco Use:. Never Smokeless Tobacco Use:., 12/28/2023 Family History Cancer: Father. Kidney stones: Mother. Immunizations Vaccine Date Status Comments SARSCoV2 mRNA(efpietzac-btsq-uz cros) vac 11/02/2021 Recorded SARS-CoV-2 (COVID-19) mRNA BNT-162b2 vax 04/29/2021 Recorded SARS-CoV-2 (COVID-19) mRNA BNT-162b2 vax 03/03/2021 Recorded 2022-06-29: TPVAL influenza virus vaccine, inactivated 02/09/2021 Recorded influenza virus vaccine, inactivated 03/16/2020 Recorded influenza virus vaccine, live, trivalent - Not Given Patient Refuses influenza virus vaccine, live, trivalent - Not Given Patient Refuses influenza virus vaccine, inactivated 01/08/2018 Recorded influenza virus vaccine, inactiva (more content not included)... Normal Villafuerte [facility] Comment on above: Result Comment: Elec tronically Signed By: OLEG OSEI, BHAVESH Patterson\.br\Date and Time Signed: 12/28/23 16:01 EDT Ibrahima 12-19-2023 CNOV Office Visit (CARDMN ) BELGICA HARPER ([id number]) 1990 F Date Time Provider Department 12/19/23 2:45 PM SOLO MORA CARDMN During your visit today, we recorded the following information about you: Pulse Blood pressure Weight Height 94/minute 127/91 85.3 kg 1.575 m Solo Mora MD 12/28/2023 2:49 AM Signed [facility] [place] Meghna Hooker Department of Cardiovascular Medicine SECTION OF CARDIAC PACING and ELECTROPHYSIOLOGY OUTPATIENT VISIT DATE December 19, 2023 OUTPATIENT VISIT TYPE NEW PRIMARY CARE PHYSICIAN: Giovani Hagen MD [address] [place] [address] CHIEF COMPLAINT: Syncope, cardiac evaluation for family testing HISTORY OF PRESENT ILLNESS: Ms. Harper is a 33 year old female who presents today for syncopal episodes. She has PMHx of IBS, bipolar disease, asthma and syncope. She reports her 9 years old daughter was having symptoms of shortness of breath without exertion and was seen by Dr. Asa Champion. The mother, who is the patient here today, was referred to get checked out as a part of her daughter and family evaluation. She reports playing sport in college with exertional syncope. She did not follow up at that time. She stopped playing sport with no recurrence of syncopal episodes beside once. Her last syncopal episodes takes place back in 2019 when she did intense work outs. Her preceding symptoms prior to syncope were HR 185 bpm, lightheadedness and dizziness. She felt confused and somewhat disoriented following the syncopal episode. She has never had any workup done including Stress Echo, social security assessor or 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 Reports symptoms of palpitations and shortness of breath with exertion. She does not monitor her HR at home. She denies chest pain, shortness of breath, orthopnea, cough, edema, PND, lightheadedness or recent syncope. PAST MEDICAL HISTORY No date: Asthma No date: Bipolar disorder (HCC) 2018: Diverticulitis No date: IBS (irritable bowel syndrome)PAST SURGICAL HISTORY No date: SECTION HX 04/2018: COLONOSCOPY Comment: IBS-c No date: HYSTEROSCOPY, DIAGNOSTIC (SEPARATE SOCIAL HISTORY Social History Tobacco Use Smoking status: Never Smokeless tobacco: Never Vaping Use Vaping status: Never Used Substance Use Topics Alcohol use: Yes Comment: socially Drug use: Never FAMILY HISTORY Problem Relation Age of Onset other (heart murmur) Brother Colon Cancer Maternal Grandfather started in the kidney other (murmur) Maternal Aunt ALLERGIES: ALLERGIES Allergen Reactions Iv Contrast [Iodine] Swelling, Itching Omnipaque 300: Patient experienced itching on her neck and left side of her face. Also, pt complained of tongue feeling itchy and feels like something is stuck in her throat . Patient received diphenhydramine (Benadryl) Omnipaque [Iohexol] Itching MEDICATIONS: amphetamine-dextroamph etamine XR (ADDERALL XR) 30 mg capsuleTake 30 mg by mouth once daily.Disp: Rfl: ALPRAZolam (XANAX) 0.5 mg tabletTake 0.25 mg by mouth two times a day.Disp: Rfl: 0 cariprazine (VRAYLAR) 4.5 mg capsuleTake 4.5 mg by mouth once daily.Disp: Rfl: REVIEW OF SYSTEMS: GENERAL: No-Weight loss or gain, No-Fever or Chills, No-Weakness and No-Sleep difficulties. HEENT: No-Headache, No-Impaired Vision, No-Glasses, No-Hearing Impairment, No-Ringing in Ears, No-Nosebleeds, No-Poor Dental Care, No-Bleeding Gums and No-Dentures. NECK: No-Swelling, No-Pain, No-Stiffness RESPIRATORY: No-Cough, No-Blood in Sputum, No-Shortness of breath, No-Wheezing, Apnea GASTROINTESTINAL: No- Trouble swallowing, No-Heartburn, No-Change in bowel habits, No-Blood in stool, No-Dark black stools MUSCULOSKELETAL: No-Muscle or joint pain, No-stiffness, No-Joint swelling NEUROLOGIC/PSYCHIATRIC : No-Weakness, No-Paralysis, No-Numbness, No-Tingling, No-Tremor, No-Nervousness or No-anxiety, No-Depressed mood, No-Memory loss SKIN: No-Rash, Itching HEMATOLOGICAL/LYMPHATI C: No-Easy bruising, No-Easy bleeding ENDOCRINE: No-Heat or No-Cold Intolerance, No-Excessive Sweating, No-Frequent Urination, No-Frequent Thirst Analia Umanzor RN PHYSICAL EXAMINATION: BP 127/91 Pulse 94 Ht 157.5 cm (5' 2 ) Wt 85.3 kg (188 lb) BMI 34.39 kg/m? General: Well appearing, in no acute distress. Skin: No clubbing, no cyanosis. Eyes: Extra ocular movements intact Oropharynx: Teeth in good repair. Neck: No jugular venous distention, no carotid bruits, carotids have a normal upstroke, no palpable thyromegaly. Lungs: Clear to auscultation bilaterally, no wheezing or rhonchi. Heart: Regular rhythm, PMI not displaced, S1, S2 normal, no S3, no S4, no heaves, no rub and no murmur. Abdomen: Soft, nontender, bowel sounds normal, no palpable organomegaly, no bruits. Extremities: No per (more content not included)... Normal [facility] ECG COMPLETEon 12-19-2023 ECG COMPLETE Ventricular Rate : 8 8 BPM Atrial Rate : 88 BPM P-R Interval : 148 ms QRS Duration : 78 ms Q-T Interval : 380 ms QTC Calculation(Bazett) : 459 ms Calculated P Bethel : 62 degrees Calculated R Bethel : 55 degrees Calculated T Bethel : 38 degrees NORMAL SINUS RHYTHM NORMAL ECG Confirmed by MD BAH HEBA ([id number]) on 12/30/2023 6:45:12 PM NAME : BELGICA HARPER PID : [id number] : 1990 Gender : Female Race : Other ORD : [id number] Procedure Date : Dec 19 2023 13:51:58 Edit Date : Dec 30 2023 18:45:15 Diagnosis: NORMAL SINUS RHYTHM NORMAL ECG Confirmed by MD BAH HEBA ([id number]) on 12/30/2023 6:45:12 PM Test Reason : Location : [facility] : J14 J1-4 Overread By : MD BAH HEBA Edited By : MD BAH HEBA Referred By : , Acquired by : CHELSEY JOSEPH [facility] [place] 11-02-2023 CNPN Telephone (CARDMN) BELGICA HARPER ([id number]) 1990 F Date Time Provider Department 11/02/23 SOLO MORA CARDMN During your visit today, we recorded the following information about you: Criss Mccrary 11/02/2023 10:50 AM Signed Records are in Care Everywhere: EP Referral- 11/01/23 (Dr. Shilo Dillon/Cardiology) Criss Mccrray Allergies As of Date: 11/02/2023 Noted Allergy [...] Status:Closed by CRISS MCCRARY on 11/02/23 Normal [facility] Extra Lavender Tubeon 2022 Extra Lavender Tube Normal [facility] Comment on above: Performed By: #### X LAV, LIVP, LIP #### [facility] [address] [place] [address] Payroll Accounting Clerk: Ronald Pearce MD Lipaseon 03-24-2023 Lipase [Catalytic activity/Vol] 260 U/L High 13-60 [facility] Comment on above: Performed By: #### X LAV, LIVP, LIP #### [facility] [address] [place] [address] Payroll Accounting Clerk: Ronald Pearce MD Liver Profileon 03-24-2023 Albumin [Mass/Vol] 3.5 g/dL Normal 3.5-5.2 [facility] Comment on above: Performed By: #### X LAV, LIVP, LIP ####[facility] [address] [place] [address] Lab Director: Ronald Pearce MD Alkaline Phos 321 U/L High 35-104 [facility] Comment on above: Performed By: #### X LAV, LIVP, LIP ####[facility] [address] [place] [address] Lab Director: Ronald Pearce MD ALT [Catalytic activity/Vol] 137 U/L High 5-33 [facility] Comment on above: Performed By: #### X LAV, LIVP, LIP ####[facility] [address] [place] [address] Lab Director: Ronald Pearce MD AST [Catalytic activity/Vol] 60 U/L High <32 [facility] Comment on above: Performed By: #### X LAV, LIVP, LIP ####[facility] [address] [place] [address] Lab Director: Ronald Pearce MD Bilirubin [Mass/Vol] 1.0 mg/dL Normal 0.3-1.2 [facility] Comment on above: Performed By: #### X LAV, LIVP, LIP ####[facility] [address] [place] [address] Lab Director: Ronald Pearce MD Bilirubin, Indirect 0.4 mg/dL Normal 0.0-1.0 [facility] Comment on above: Performed By: #### X LAV, LIVP, LIP ####[facility] [address] [place] [address] Lab Director: Ronald Pearce MD Bilirubin.indirect [Mass/Vol] 0.6 mg/dL High <0.3 [facility] Comment on above: Performed By: #### X LAV, LIVP, LIP ####[facility] [address] [place] [address] Lab Director: Ronald Pearce MD Protein [Mass/Vol] 5.7 g/dL Low 6.4-8.3 [facility] Comment on above: Performed By: #### X LAV, LIVP, LIP ####[facility] [address] [facility] [place] [address] lab Director: Ronald Pearce MD Extra Lavender Tubeon 2022 Extra Lavender Tube Normal [facility] Comment on above: Performed By: #### L IVP, XLAV ####[facility] [address] [place] [address] lab Director: Ronald Pearce MD FL CHOLANGIOGRAM [...] Danny Cole MD 03/23/23 Final result Normal [facility] Liver Profileon 03-23-2023 Albumin [Mass/Vol] 3.5 g/dL Normal 3.5-5.2 [facility] Comment on above: Performed By: #### L IVP, XLAV ####[facility] [address] [place] [address] lab Director: Ronald Pearce MD Alkaline Phos 293 U/L High 35-104 [facility] Comment on above: Performed By: #### L IVP, XLAV ####[facility] [address] [facility] [place] [address] lab Director: Ronald Pearce MD ALT [Catalytic activity/Vol] 111 U/L High 5-33 [facility] Comment on above: Performed By: #### L IVP, XLAV ####[facility] [address] [place] [address] Lab Director: Ronald Pearce MD AST [Catalytic activity/Vol] 43 U/L High <32 [facility] Comment on above: Performed By: #### L IVP, XLAV ####[facility] [address] [place] [phone] Director: Ronald Pearce MD Bilirubin [Mass/Vol] 2.6 mg/dL High 0.3-1.2 [facility] Comment on above: Performed By: #### L IVP, XLAV ####[facility] [address] [place] [address] Lab Director: Ronald Pearce MD Bilirubin, Indirect 0.8 mg/dL Normal 0.0-1.0 [facility] Comment on above: Performed By: #### L IVP, XLAV ####[facility] [address] [place] [address] Lab Director: Ronald Pearce MD Bilirubin.indirect [Mass/Vol] 1.8 mg/dL High <0.3 [facility] Comment on above: Performed By: #### L IVP, XLAV ####[facility] [address] [place] [address] Lab Director: Ronald Pearce MD Protein [Mass/Vol] 5.7 g/dL Low 6.4-8.3 [facility] Comment on above: Performed By: #### L IVP, XLAV ####[facility] [address] [place] [address] Lab Director: Ronald Pearce MD Surgical Pathology Reporton 03-23-2023 Surgical Pathology Report (NOTE) Path Number: [id number] -- Diagnosis -- A. GALLBLADDER AND CONTENTS, [...] lesions or periductal lymph nodes are identified. Human Factors Engineer sections 1c. tm SM/tb1:03/24/2023 Microscopic Description Microscopic examination performed. Processing Lab: [address] [id number] Interpretation Performed at [address] [id number] SURGICAL PATHOLOGY CONSULTATION Patient Name: BELGICA HARPER [facility] Rec: [id number] [facility] ANATOMIC PATHOLOGY [address] [place] [address]. [address] Normal [facility] CBC with Diffon 03-22-2023 Abs. Basophil <0.03 Normal 0.00-0.20 [facility] Comment on above: Performed By: #### C DP, LIP, CMPX #### [facility] [address] [place] [address] Payroll Accounting Clerk: Ronald Pearce MD #### TRIG #### [facility] [address] [place] [address] Payroll Accounting Clerk: Elio Marley MD Abs.Imm.Granulocyte 0.03 k/uL Normal 0.00-0.30 [facility] Comment on above: Performed By: #### C DP, LIP, CMPX #### [facility] [address] [place] [address] Payroll Accounting Clerk: Ronald Pearce MD #### TRIG #### [address] [phone] Payroll Accounting Clerk: Elio Marley MD Abs.Neutrophil (Seg) 6.89 k/uL Normal 1.50-8.10 [facility] Comment on above: Performed By: #### C DP, LIP, CMPX #### [facility] [address] [place] [address] Payroll Accounting Clerk: Ronald Pearce MD #### TRIG #### [address] [address] Payroll Accounting Clerk: Elio Marley MD Basophils/100 WBC (Bld) 0 % Normal 0-2 [facility] Comment on above: Performed By: #### C DP, LIP, CMPX #### [facility] [address] [place] [address] Payroll Accounting Clerk: Ronald Pearce MD #### TRIG #### [address] [address] Payroll Accounting Clerk: Elio Marley MD Eosinophils (Bld) [#/Vol] 0.07 10*3/uL Normal 0.00-0.44 [facility] Comment on above: Performed By: #### C DP, LIP, CMPX #### [facility] [address] [place] [address] Payroll Accounting Clerk: Ronald Pearce MD #### TRIG #### [address] [address] Payroll Accounting Clerk: Elio Marley MD Eosinophils/100 WBC (Bld) 1 % Normal 1-4 [facility] Comment on above: Performed By: #### C DP, LIP, CMPX #### [facility] [address] [place] [address] Payroll Accounting Clerk: Ronald Pearce MD #### TRIG #### [address] [address] Payroll Accounting Clerk: Elio Marley MD Erythrocyte distribution width (RBC) [Ratio] 12.2 % Normal 11.8-14.4 [facility] Comment on above: Performed By: #### C DP, LIP, CMPX #### [facility] [address] [place] [address] Payroll Accounting Clerk: Ronald Pearce MD #### TRIG #### [address] [address] Payroll Accounting Clerk: Elio Marley MD Hematocrit (Bld) [Volume fraction] 36.9 % Normal 36.3-47.1 [facility] Comment on above: Performed By: #### C DP, LIP, CMPX #### [facility] [address] [place] [address] Payroll Accounting Clerk: Ronald Pearce MD #### TRIG #### [address] [address] Payroll Accounting Clerk: Elio Marley MD Hemoglobin (Bld) [Mass/Vol] 12.1 g/dL Normal 11.9-15.1 [facility] Comment on above: Performed By: #### C DP, LIP, CMPX #### [facility] [address] [place] [address] Payroll Accounting Clerk: Ronald Pearce MD #### TRIG #### [address] [address] Payroll Accounting Clerk: Elio Marley MD Immature granulocytes/100 WBC (Bld) 0 % Normal 0 [facility] Comment on above: Performed By: #### C DP, LIP, CMPX #### [facility] [address] [place] [address] Payroll Accounting Clerk: Ronald Pearce MD #### TRIG #### [address] [address] Payroll Accounting Clerk: Elio Marley MD Lymphocytes (Bld) [#/Vol] 1.62 10*3/uL Normal 1.10-3.70 [facility] Comment on above: Performed By: #### C DP, LIP, CMPX #### [facility] [address] [place] [address] Payroll Accounting Clerk: Ronald Pearce MD #### TRIG #### [address] [address] Payroll Accounting Clerk: Elio Marley MD Lymphocytes/100 WBC (Bld) 18 % Low 24-43 [facility] Comment on above: Performed By: #### C DP, LIP, CMPX #### [facility] [address] [place] [address] Payroll Accounting Clerk: Ronald Pearce MD #### TRIG #### [address] [address] Payroll Accounting Clerk: Elio Marley MD MCH (RBC) [Entitic mass] 32.5 pg Normal 25.2-33.5 [facility] Comment on above: Performed By: #### C DP, LIP, CMPX #### [facility] [address] [place] [address] Payroll Accounting Clerk: Ronald Pearce MD #### TRIG #### [address] [address] Payroll Accounting Clerk: Elio Marley MD MCHC (RBC) [Mass/Vol] 32.8 g/dL Normal 28.4-34.8 [facility] Comment on above: Performed By: #### C DP, LIP, CMPX #### [facility] [address] [place] [address] Payroll Accounting Clerk: Ronald Pearce MD #### TRIG #### [address] [address] Payroll Accounting Clerk: Elio Marley MD MCV (RBC) [Entitic vol] 99.2 fL Normal 82.6-102.9 [facility] Comment on above: Performed By: #### C DP, LIP, CMPX #### [facility] [address] [place] [address] Payroll Accounting Clerk: Ronald Pearce MD #### TRIG #### [address] [address] Payroll Accounting Clerk: Elio Marley MD Monocytes (Bld) [#/Vol] 0.57 10*3/uL Normal 0.10-1.20 [facility] Comment on above: Performed By: #### C DP, LIP, CMPX #### [facility] [address] [place] [address] Payroll Accounting Clerk: Ronald Pearce MD #### TRIG #### [address] [address] Payroll Accounting Clerk: Elio Marley MD Monocytes/100 WBC (Bld) 6 % Normal 3-12 [facility] Comment on above: Performed By: #### C DP, LIP, CMPX #### [facility] [address] [place] [address] Payroll Accounting Clerk: Ronald Pearce MD #### TRIG #### [address] [address] Payroll Accounting Clerk: Elio Marley MD Neutrophil (Seg) 75 % High 36-65 [facility] Comment on above: Performed By: #### C DP, LIP, CMPX #### [facility] [address] [place] [address] Payroll Accounting Clerk: Ronald Pearce MD #### TRIG #### [address] [address] Payroll Accounting Clerk: Elio Marley MD NRBC Automated 0.0 per 100 WBC Normal 0.0 [facility] Comment on above: Performed By: #### C DP, LIP, CMPX #### [facility] [address] [place] [address] Payroll Accounting Clerk: Ronald Pearce MD #### TRIG #### [address] [address] Payroll Accounting Clerk: Elio Marley MD Platelet mean volume (Bld) [Entitic vol] 10.7 fL Normal 8.1-13.5 [facility] Comment on above: Performed By: #### C DP, LIP, CMPX #### [facility] [address] [place] [address] Payroll Accounting Clerk: Ronald Pearce MD #### TRIG #### [address] [address] Payroll Accounting Clerk: Elio Marley MD Platelets (Bld) [#/Vol] 188 10*3/uL Normal 138-453 [facility] Comment on above: Performed By: #### C DP, LIP, CMPX #### [facility] [address] [place] [address] Payroll Accounting Clerk: Ronald Pearce MD #### TRIG #### [address] [address] Payroll Accounting Clerk: Elio Marley MD RBC (Bld) [#/Vol] 3.72 10*6/uL Low 3.95-5.11 [facility] Comment on above: Performed By: #### C DP, LIP, CMPX #### [facility] [address] [place] [address] Payroll Accounting Clerk: Ronald Pearce MD #### TRIG #### [address] [address] Payroll Accounting Clerk: Elio Marley MD WBC (Bld) [#/Vol] 9.2 10*3/uL Normal 3.5-11.3 [facility] Comment on above: Performed By: #### C DP, LIP, CMPX #### [facility] [address] [place] [address] Payroll Accounting Clerk: Ronald Pearce MD #### TRIG #### [address] [address] Payroll Accounting Clerk: Elio Marley MD Comp Metabolic Pr/rfx MGon 05-22-2022 Albumin [Mass/Vol] 3.5 g/dL Normal 3.5-5.2 [facility] Comment on above: Performed By: #### C DP, LIP, CMPX #### [facility] [address] [place] [address] Payroll Accounting Clerk: Ronald Pearce MD #### TRIG #### [address] [address] Payroll Accounting Clerk: Elio Marley MD Alkaline Phos 157 U/L High 35-104 [facility] Comment on above: Performed By: #### C DP, LIP, CMPX #### [facility] [address] [place] [address] Payroll Accounting Clerk: Ronald Pearce MD #### TRIG #### [address] [address] Payroll Accounting Clerk: Elio Marley MD ALT [Catalytic activity/Vol] 131 U/L High 5-33 [facility] Comment on above: Performed By: #### C DP, LIP, CMPX #### [facility] [address] [place] [address] Payroll Accounting Clerk: Ronald Pearce MD #### TRIG #### [address] [address] Payroll Accounting Clerk: Elio Marley MD Anion gap [Moles/Vol] 11 mmol/L Normal 9-17 [facility] Comment on above: Performed By: #### C DP, LIP, CMPX #### [facility] [address] [place] [address] Payroll Accounting Clerk: Ronald Pearce MD #### TRIG #### [address] [address] Payroll Accounting Clerk: Elio Marley MD AST [Catalytic activity/Vol] 34 U/L High <32 [facility] Comment on above: Performed By: #### C DP, LIP, CMPX #### [facility] [address] [place] [address] Payroll Accounting Clerk: Ronald Pearce MD #### TRIG #### [address] [address] Payroll Accounting Clerk: Elio Marley MD Bilirubin [Mass/Vol] 1.9 mg/dL High 0.3-1.2 [facility] Comment on above: Performed By: #### C DP, LIP, CMPX #### [facility] [address] [place] [address] Payroll Accounting Clerk: Ronald Pearce MD #### TRIG #### [address] [address] Payroll Accounting Clerk: Elio Marley MD BUN/CRE Ratio 17 Normal 9-20 [facility] Comment on above: Performed By: #### C DP, LIP, CMPX #### [facility] [address] [place] [address] Payroll Accounting Clerk: Ronald Pearce MD #### TRIG #### [address] [address] Payroll Accounting Clerk: Elio Marley MD Calcium [Mass/Vol] 8.1 mg/dL Low 8.6-10.4 [facility] Comment on above: Performed By: #### C DP, LIP, CMPX #### [facility] [address] [place] [address] Payroll Accounting Clerk: Ronald Pearce MD #### TRIG #### [address] [address] Payroll Accounting Clerk: Elio Marley MD Chloride [Moles/Vol] 105 mmol/L Normal 98-107 [facility] Comment on above: Performed By: #### C DP, LIP, CMPX #### [facility] [address] [place] [address] Payroll Accounting Clerk: Ronald Pearce MD #### TRIG #### [address] [address] Payroll Accounting Clerk: Elio Marley MD CO2 [Moles/Vol] 21 mmol/L Normal 20-31 [facility] Comment on above: Performed By: #### C DP, LIP, CMPX #### [facility] [address] [place] [address] Payroll Accounting Clerk: Ronald Pearce MD #### TRIG #### [address] [address] Payroll Accounting Clerk: Elio Marley MD Creatinine [Mass/Vol] 0.6 mg/dL Normal 0.5-0.9 [facility] Comment on above: Performed By: #### C DP, LIP, CMPX #### [facility] [address] [place] [address] Payroll Accounting Clerk: Ronald Pearce MD #### TRIG #### [address] [address] Payroll Accounting Clerk: Elio Marley MD GFR/1.73 sq M.predicted among non-blacks MDRD (S/P/Bld) [Vol rate/Area] mL/min/{1.73_m2} Normal >60 [facility] Comment on above: Result Comment: These results [...] By: #### C DP, LIP, CMPX #### [facility] [address] [place] [address] Payroll Accounting Clerk: Ronald Pearce MD #### TRIG #### [address] [address] Payroll Accounting Clerk: Elio Marley MD Glucose [Mass/Vol] 75 mg/dL Normal 70-99 [facility] Comment on above: Performed By: #### C DP, LIP, CMPX #### [facility] [address] [place] [address] Payroll Accounting Clerk: Ronald Pearce MD #### TRIG #### [address] [address] Payroll Accounting Clerk: Elio Marley MD Potassium [Moles/Vol] 4.0 mmol/L Normal 3.7-5.3 [facility] Comment on above: Performed By: #### C DP, LIP, CMPX #### [facility] [address] [place] [address] Payroll Accounting Clerk: Ronald Pearce MD #### TRIG #### [address] [address] Payroll Accounting Clerk: Elio Marley MD Protein [Mass/Vol] 5.7 g/dL Low 6.4-8.3 [facility] Comment on above: Performed By: #### C DP, LIP, CMPX #### [facility] [address] [place] [address] Payroll Accounting Clerk: Ronald Pearce MD #### TRIG #### [address] [address] Payroll Accounting Clerk: Elio Marley MD Sodium [Moles/Vol] 137 mmol/L Normal 135-144 [facility] Comment on above: Performed By: #### C DP, LIP, CMPX #### [facility] [address] [place] [address] Payroll Accounting Clerk: Ronald Pearce MD #### TRIG #### [address] [address] Payroll Accounting Clerk: Elio Marley MD Urea nitrogen [Mass/Vol] 10 mg/dL Normal 6-20 [facility] Comment on above: Performed By: #### C DP, LIP, CMPX #### [facility] [address] [place] [address] Payroll Accounting Clerk: Ronald Pearce MD #### TRIG #### [facility] [address] [place] [address] Payroll Accounting Clerk: Elio Marley MD K (Potassium)on 03-22-2023 Potassium [Moles/Vol] 3.8 mmol/L Normal 3.7-5.3 [facility] Comment on above: Performed By: #### K #### [facility] [address] [place] [address] Payroll Accounting Clerk: Ronald Pearce MD Lipaseon 03-22-2023 Lipase [Catalytic activity/Vol] 198 U/L High 13-60 [facility] Comment on above: Performed By: #### C DP, LIP, CMPX #### [facility] [address] [place] [address] Payroll Accounting Clerk: Ronald Pearce MD #### TRIG #### [address] [address] Payroll Accounting Clerk: Elio Marley MD MRI ABDOMEN WO [...] Daniel Hooker MD 03/22/23 Final result Normal [facility] Triglycerideson 03-22-2023 Triglyceride [Mass/Vol] 102 mg/dL Normal 0-149 [facility] Comment on above: Result Comment: Triglyceride Guidelines: <150 Desirable 150-199 Borderline 200-499 High >499 Very high Based on AHA Guidelines for fasting triglyceride, January 2012. Performed By: #### C DP, LIP, CMPX #### [facility] [address] [place], [place] [id number] Payroll Accounting Clerk: Ronald Pearce MD #### TRIG #### [facility] [address] [place], [place] [id number] Payroll Accounting Clerk: MD Lincoln Gordillo 03-20-2023 ISABELN Telephone (FVPRAD) BELGICA HARPER ([id number]) 1990 F Date Time Provider Department 03/20/23 LAWRENCE CAMPUZANO FVPRAD During your visit today, we recorded the [...] Status:Closed by LAWRENCE CAMPUZANO on 03/20/23 Normal [facility] DENY Antinuclear Antibodieson 10-26-2022 Antinuclear Abs, IFA Negative Normal . [facility] Comment on above: Order Comment: Reaso n for Exam Elevated liver enzymes Result Comment: Nega tive <1:80 Borderline 1:80 Positive >1:80 ICAP nomenclature: AC-0 For more information about Hep-2 cell patterns use ANApatterns.org, the official website for the International Consensus on Antinuclear Antibody (DENY) Patterns (ICAP). Performed at: [facility] [address] [id number] Payroll Accounting Clerk: Demarcus Moreno PhD, Phone: [phone] Performed By: #### A NA, HEMOCHROM, IGG, MITOM2, ALPHA PHEN, HAABT, SMAB, CERULOP, L-K MICRO #### [facility] , #### CONSTANTINO #### [facility] [address] Efoql-9-Mecntsvwalo Phenotyp kwasi 10-26-2022 Alpha 1 Anti-Trypsin 121 mg/dL Normal 100-188 [facility] Comment on above: Order Comment: Reaso n for Exam Elevated liver enzymes Performed By: #### A NA, HEMOCHROM, IGG, MITOM2, ALPHA PHEN, HAABT, SMAB, CERULOP, L-K MICRO #### [facility] , #### CONSTANTINO #### [facility] [address] Phenotype (P1) MM Normal . [facility] Comment on above: Order Comment: Reaso n [...] Ranges used to confirm phenotype. Performed at: [address] [id number] Payroll Accounting Clerk: Demarcus Moreno PhD, Phone: [phone] Performed at: [address] [id number] Payroll Accounting Clerk: Yuli Callejas MD, Phone: [phone] Performed By: #### A NA, HEMOCHROM, IGG, MITOM2, ALPHA PHEN, HAABT, SMAB, CERULOP, L-K MICRO #### [facility] , #### CONSTANTINO #### [address] Ceruloplasminon 10-26-2022 Ceruloplasmin 27.2 mg/dL Normal 19.0-39.0 [facility] Comment on above: Order Comment: Reaso n for Exam Elevated liver enzymes Result Comment: Perf ormed at: [address] [id number] Payroll Accounting Clerk: Demarcus Moreno PhD, Phone: [phone] PERFORMED BY: [place] [address] PATHOLOGIST SET UP INSPECTOR ILIANA CAMP M.D. Performed By: #### A NA, HEMOCHROM, IGG, MITOM2, ALPHA PHEN, HAABT, SMAB, CERULOP, L-K MICRO #### [facility] , #### [place] #### [address] Ferritinon 10-26-2022 Ferritin [Mass/Vol] 106.5 ng/mL Normal 11.0-306.8 [facility] Comment on above: Order Comment: pt is fasting Reason for Exam Elevated liver enzymes Result Comment: PERF ORMED BY: [place] [address] PATHOLOGIST SET UP INSPECTOR ILIANA CAMP M.D. Performed By: #### A NA, HEMOCHROM, IGG, MITOM2, ALPHA PHEN, HAABT, SMAB, CERULOP, L-K MICRO #### [facility] , #### [place] #### [facility] [address] [place] [address] Ferritin [Mass/volume] in Se rum or PlasmaOrdered By: Erwin Hylton on 10-26-2022 Ferritin [Mass/Vol] 106.5 ng/mL 11.0-306.8 [facility] Hepatitis A Antibody Totalon 10-26-2022 Hepatitis A Antibody Total Negative Normal Negative [facility] Comment on above: Order Comment: Reaso n for Exam Elevated liver enzymes Result Comment: Perf ormed at: CB - [facility] [address] [id number] Payroll Accounting Clerk: Demarcus Moreno PhD, Phone: [phone] PERFORMED BY: [place] [address] PATHOLOGIST SET UP INSPECTOR ILIANA CAMP M.D. Performed By: #### A NA, HEMOCHROM, IGG, MITOM2, ALPHA PHEN, HAABT, SMAB, CERULOP, L-K MICRO #### [facility] , #### [place] #### [facility] [address] [place] [address] [place] Hereditary Hemochromatosis,D NAon 10-26-2022 Hereditary Hemochromatosis Normal . [facility] Comment on above: Order Comment: Reaso n for Exam Elevated liver enzymes Result Comment: Resu lt: c.845G>A (p.Vnz632Ftz) - Not Detected c.187C>G (p.Cow61Ndk) - Not Detected c.193A>T (p.Oct32Dug) - Not Detected Not associated with increased [...] for patients who are homozygous for c.845G>A (p.Omg275Psm) and have yet to experience clinical symptoms. Comments: The most common HFE variants associated with hereditary hemochromatosis are c.845G>A (p.Uuv999Qax), c.187C>G (p.Unm27Xwt), c.193A>T (p.Nfu30Syq). While patients homozygous for c.845G>A (p.Ryu312Jry) are the most likely to present clinical symptoms, less than 10% develop clinically significant iron overload with tissue and organ damage. Genetic counseling is recommended to discuss the potential clinical implications of positive results, as well as recommendations for testing family members. Genetic Coordinators are available for health care providers to discuss results at [phone] Test Details: Three variants analyzed: c.845G>A (p.Sbj245Hwj), commonly referred to as C282Y c.187C>G (p.Xmo55Ayr), commonly referred to as H63D c.193A>T (p.Iow77Emf), commonly referred to as S65C Methods/Limitations: DNA [...] PC, Deborah KV, Raymond LW, Ramsey ; [employer]. Diagnosis and management of hemochromatosis: 2011 practice guideline by the [employer] Liver Diseases. Hepatology. 2011 Oct;54(1):328-43. doi: 10.1002/hep.56829. PMID: 67876200; PMCID: [id number]. Cora G, Olegario P, Fabio DW, Tabatha H, Love O, Zev S, Vazquez I, Kofi M, Sunitha S. [facility] best practice guidelines for the molecular genetic diagnosis of hereditary hemochromatosis (HH). Eur J Hum Margaret. 2016 Jul;24(4):479-95. doi: 10.1038/ejhg.2015.128. Epub 2014Oct 29. PMID: 96218038; PMCID: [id number]. Performed By: #### A NA, HEMOCHROM, IGG, MITOM2, ALPHA PHEN, HAABT, SMAB, CERULOP, L-K MICRO #### [facility] , #### [place] #### [address] Reviewed by: mD Reyna, PhD Normal . [facility] Comment on above: Order Comment: Reaso n for Exam Elevated liver enzymes Result Comment: Perf ormed at: TG - [facility] [address] [place], [place] [id number] Payroll Accounting Clerk: Vivian Kelley [facility], Phone: [phone] PERFORMED BY: [place] [address] PATHOLOGIST SET UP INSPECTOR ILIANA CAMP M.D. Performed By: #### A NA, HEMOCHROM, IGG, MITOM2, ALPHA PHEN, HAABT, SMAB, CERULOP, L-K MICRO #### [facility] , #### [place] #### [place] [address] [place] Immunoglobulin Harvey Immunoglobulin G 865 mg/dL Normal 586-1602 [facility] Comment on above: Order Comment: Reaso n for Exam Elevated liver enzymes Result Comment: Perf ormed at: - [facility] [id number] Payroll Accounting Clerk: Demarcus Moreno PhD, Phone: [phone] Performed By: #### A NA, HEMOCHROM, IGG, MITOM2, ALPHA PHEN, HAABT, SMAB, CERULOP, L-K MICRO #### [facility] , #### [place] #### [address] Liver-Kidney Microsomal Abon 10-26-2022 Liver-Kidney Microsomal Ab <1.0 Normal 0.0-20.0 [facility] Comment on above: Order Comment: Reaso n [...] MICRO #### [facility] , #### [place] #### [address] Mitochondrial (M2) Antibodyo n 10-26-2022 Mitochondrial (M2) Antibody <20.0 Normal 0.0-20.0 [facility] Comment on above: Order Comment: Reaso n for Exam Elevated liver enzymes Result Comment: Nega tive 0.0 - 20.0 Equivocal 20.1 - 24.9 Positive >24.9 Mitochondrial (M2) Antibodies are found in 90-96% of patients with primary biliary cirrhosis. Performed at: - [facility] [id number] Payroll Accounting Clerk: Demarcus Moreno PhD, Phone: [phone] Performed By: #### A NA, HEMOCHROM, IGG, MITOM2, ALPHA PHEN, HAABT, SMAB, CERULOP, L-K MICRO #### [facility] , #### [place] #### [address] Smooth Muscle Antibodyon Smooth Muscle Antibody 4 Normal 0-19 [facility] Comment on above: Order Comment: Reaso n [...] MICRO #### [facility] , #### [place] #### [address] [place] liveron 10-26-2022 liver [facility] [place] [address] Ultrasound Report Signed Patient: Belgica Harper MR#: [id number] : 1990 Acct:[id number] Age/Sex: 32 / F ADM Date: 10/26/22 Loc: Room: Type: [facility] Attending Dr: Erwin Hylton MD Ordering Provider: [...] Perdomo Jr., D.O.10/26/2022 3:24 PM Dictation Location: [place] [address] Tech: Francia Lopez Transcribed By: GRANT 10/26/22 152 Dictated By: Alexandro Perdomo Jr, DO 10/26/22 152 Signed By: 10/26/22 1524 Normal [facility] ACETYLCHOLINE REC BINDING AB on 10-17-2022 ACETYLCHOLINE BINDING, QUAL Negative Normal Negative [facility] Comment on above: Order Comment: Speci men Type: BLOOD SPECIMEN Ordering Facility: [facility] Address: [address] [place] [address] Result Comment: Anti -acetylcholine receptor binding antibody test is used as an aid in diagnosis of myasthenia gravis. A negative result cannot exclude myasthenia gravis. Clinical correlation is required. Performed By: #### 3 016-3, 1987-08, 2156-09 #### [facility] CLIA [id number] [place] [address] [place] Acetylcholine receptor binding Ab (S) [Moles/Vol] <0.02 Normal <0.21 [facility] Comment on above: Order Comment: Speci men Type: BLOOD SPECIMEN Ordering Facility: [facility] Address: [address] [place] [address] Performed By: #### 3 016-3, 2156-09 #### [facility] CLIA [id number] [address] [place] [address] [place] AMINO ACIDS, PLASMA W/ CONSU LTATIONon 10-17-2022 Alanine [Moles/Vol] 310 umol/L Normal 177-583 [facility] Comment on above: Order Comment: Speci men Type: BLOOD SPECIMEN Ordering Facility: [facility] Address: [address] [place], [place] [address] Performed By: #### 3 016-3, 2156-09 #### [facility] CLIA [id number] [facility] [place] [address] [place] Alloisoleucine [Moles/Vol] 2 umol/L Normal 0-2 [facility] Comment on above: Order Comment: Speci men Type: BLOOD SPECIMEN Ordering Facility: [facility] Address: [address] Performed By: #### 3 016-3, 2156-09 #### [facility] CLIA [id number] [facility] [place] [address] [place] Alpha aminoadipate [Moles/Vol] <1 Normal 0-6 [facility] Comment on above: Order Comment: Speci men Type: BLOOD SPECIMEN Ordering Facility: [facility] Address: [address] Performed By: #### 3 016-3, 2156-09 #### [facility] CLIA [id number] [facility]. [place], [place] [address] [place] [address] AMINO ACID CONSULTATION, PLASMA Normal [facility] Comment on above: Order Comment: Speci men Type: BLOOD SPECIMEN Ordering Facility: [facility] Address: [address] Result Comment: This plasma amino acid analysis shows no significant abnormalities. Reference intervals from Isacc E, Len MG, Kate FANTASMA, and Christopher DK: Biochemical Genetics: A Laboratory Manual, Copyright 1989 by [employer] Reference intervals not established for some amino acids. This test was developed and its performance characteristics determined by [facility]'s [facility] Pathology and Laboratory Medicine [place] ([facility]). It has not been cleared or approved by the FDA. [facility] is regulated under CLIA as qualified to perform high complexity testing. This test is used for clinical purposes. It should not be regarded as investigational or for research. Performed By: #### 3 016-3, 2156-09 #### [facility] CLIA [id number] [facility] [place] [address] [facility] [place] AMINO ACIDS REVIEW, PLASMA Reviewed by Patrick Proctor MD, Ph.D ([id number]) [facility] Comment on above: Order Comment: Speci men Type: BLOOD SPECIMEN Ordering Facility: [facility] Address: [address] Performed By: #### 3 016-3, 2156-09 #### [facility] CLIA [id number] [address] [place] [address] [place] Arginine [Moles/Vol] 77 umol/L Normal 15-128 [facility] Comment on above: Order Comment: Speci men Type: BLOOD SPECIMEN Ordering Facility: [facility] Address: [address] [place] [address] Performed By: #### 3 016-3, 2156-09 #### [facility] CLIA [id number] [address] [place] [address] [place] Asparagine [Moles/Vol] 44 umol/L Normal 35-74 [facility] Comment on above: Order Comment: Speci men Type: BLOOD SPECIMEN Ordering Facility: [facility] Address: [address] [place] [address] Performed By: #### 3 3, 2156-09 #### [facility] IA [id number] [address] [place] [address] [place] Aspartate [Moles/Vol] 2 umol/L Normal 1-25 [facility] Comment on above: Order Comment: Speci men Type: BLOOD SPECIMEN Ordering Facility: [facility] Address: [address] [place] [address] Performed By: #### 3 0163, 2156-09 #### [facility] CLIA [id number] [address] [place] [address] [place] Citrulline [Moles/Vol] 25 umol/L Normal 12-55 [facility] Comment on above: Order Comment: Speci men Type: BLOOD SPECIMEN Ordering Facility: [facility] Address: [address] [place] [address] Performed By: #### 3 016-3, 2156-09 #### [facility] CLIA [id number] [address] [place] [address] [place] Cystine [Moles/Vol] 33 umol/L Normal 5-82 [facility] Comment on above: Order Comment: Speci men Type: BLOOD SPECIMEN Ordering Facility: [facility] Address: [address] [place] [address] Performed By: #### 3 016-3, 1987-08, 2156-09 #### [facility] CLIA [id number] [address] [place] [address] [place] Glutamate [Moles/Vol] 31 umol/L Normal 10-131 [facility] Comment on above: Order Comment: Speci men Type: BLOOD SPECIMEN Ordering Facility: [facility] Address: [address] [place] [address] Performed By: #### 3 016-3, 1987-08, 2156-09 #### [facility] CLIA [id number] [address] [place] [address] [place] Glutamine [Moles/Vol] 652 umol/L Normal 205-756 [facility] Comment on above: Order Comment: Speci men Type: BLOOD SPECIMEN Ordering Facility: [facility] Address: [address] [place] [address] Performed By: #### 3 016-3, 1987-08, 2156-09 #### [facility] CLIA [id number] [address] [place] [address] [place] Glycine [Moles/Vol] 351 umol/L Normal 151-490 [facility] Comment on above: Order Comment: Speci men Type: BLOOD SPECIMEN Ordering Facility: [facility] Address: [address] Performed By: #### 3 016-3, 1987-08, 2156-09 #### [facility] CLIA [id number] [address] [place] [address] [place] Histidine [Moles/Vol] 82 umol/L Normal 72-124 [facility] Comment on above: Order Comment: Speci men Type: BLOOD SPECIMEN Ordering Facility: [facility] Address: [address] [place] [address] Performed By: #### 3 016-3, 2156-09 #### [facility] CLIA [id number] [address] [place] [address] [place] Hydroxylysine [Moles/Vol] <1 High <=0 [facility] Comment on above: Order Comment: Speci men Type: BLOOD SPECIMEN Ordering Facility: [facility] Address: [address] [place] [address] Performed By: #### 3 016-3, 2156-09 #### [facility] IA [id number] [address] [place] [address] [place] Hydroxyproline [Moles/Vol] 9 umol/L Normal 0-53 [facility] Comment on above: Order Comment: Speci men Type: BLOOD SPECIMEN Ordering Facility: [facility] Address: [address] [place] [address] Performed By: #### 3 0163, 2156-09 #### [facility] IA [id number] [address] [place] [address] [place] Isoleucine [Moles/Vol] 66 umol/L Normal 30-108 [facility] Comment on above: Order Comment: Speci men Type: BLOOD SPECIMEN Ordering Facility: [facility] Address: [address] [place] [address] Performed By: #### 3 0163, 2156-09 #### [facility] IA [id number] [address] [facility] [place] [address] [place] Leucine [Moles/Vol] 109 umol/L Normal 72-201 [facility] Comment on above: Order Comment: Speci men Type: BLOOD SPECIMEN Ordering Facility: [facility] Address: [address] [place] [address] Performed By: #### 3 016-3, 1987-08, 2156-09 #### [facility] IA [id number] [address] [facility] [place] [address] [place] Lysine [Moles/Vol] 220 umol/L Normal 116-296 [facility] Comment on above: Order Comment: Speci men Type: BLOOD SPECIMEN Ordering Facility: [facility] Address: [address] [place] [address] Performed By: #### 3 016-3, 1987-08, 2156-09 #### [facility] CLIA [id number] [address] [place] [address] [place] Methionine [Moles/Vol] 20 umol/L Normal 10-42 [facility] Comment on above: Order Comment: Speci men Type: BLOOD SPECIMEN Ordering Facility: [facility] Address: [address] [place] [address] Performed By: #### 3 016-3, 1987-08, 2156-09 #### [facility] CLIA [id number] [address] [place] [address] [place] Ornithine [Moles/Vol] 64 umol/L Normal 48-195 [facility] Comment on above: Order Comment: Speci men Type: BLOOD SPECIMEN Ordering Facility: [facility] Address: [address] [place] [address] Performed By: #### 3 016-3, 1987-08, 2156-09 #### [facility] IA [id number] [address] [place] [address] [place] Phenylalanine [Moles/Vol] 42 umol/L Normal 35-85 [facility] Comment on above: Order Comment: Speci men Type: BLOOD SPECIMEN Ordering Facility: [facility] Address: [address] [place] [address] Performed By: #### 3 016-3, 1987-08, 2156-09 #### [facility] CLIA [id number] [address] [place] [address] [place] Proline [Moles/Vol] 187 umol/L Normal 97-329 [facility] Comment on above: Order Comment: Speci men Type: BLOOD SPECIMEN Ordering Facility: [facility] Address: [address] [place] [address] Performed By: #### 3 016-3, 19882156-09 #### [facility] IA [id number] [address] [place] [address] [place] Sarcosine [Moles/Vol] <1 High <=0 [facility] Comment on above: Order Comment: Speci men Type: BLOOD SPECIMEN Ordering Facility: [facility] Address: [address] [place] [address] Performed By: #### 3 016-3, 2156-09 #### [facility] IA [id number] [address] [place] [address] [place] Serine [Moles/Vol] 107 umol/L Normal 58-181 [facility] Comment on above: Order Comment: Speci men Type: BLOOD SPECIMEN Ordering Facility: [facility] Address: [address] [place] [address] Performed By: #### 3 016-3, 2156-09 #### [facility] IA [id number] [address] [place] [address] [place] Taurine [Moles/Vol] 46 umol/L Low 54-210 [facility] Comment on above: Order Comment: Speci men Type: BLOOD SPECIMEN Ordering Facility: [facility] Address: [address] [place] [address] Performed By: #### 3 016-3, 1987-08, 2156-09 #### [facility] IA [id number] [address] [place] [address] [place] Threonine [Moles/Vol] 147 umol/L Normal 60-225 [facility] Comment on above: Order Comment: Speci men Type: BLOOD SPECIMEN Ordering Facility: [facility] Address: [address] [place] [address] Performed By: #### 3 016-3, 1987-08, 2156-09 #### [facility] IA [id number] [address] [facility] [place] [address] [place] Tyrosine [Moles/Vol] 51 umol/L Normal 34-112 [facility] Comment on above: Order Comment: Speci men Type: BLOOD SPECIMEN Ordering Facility: [facility] Address: [address] [place] [address] Performed By: #### 3 016-3, 2156-09 #### [facility] IA [id number] [address] [place] [address] [place] Valine [Moles/Vol] 199 umol/L Normal 119-336 [facility] Comment on above: Order Comment: Rl basilio Type: BLOOD SPECIMEN Ordering Facility: [facility] Address: [address] Performed By: #### 3 016-3, 2156-09 #### [facility] IA [id number] [address] [place] [address] [place] CARNITINE FREE/TOTAL, PLASMA on 10-17-2022 C0 [Moles/Vol] 27 umol/L Normal 22-54 [facility] Comment on above: Order Comment: Rl basilio Type: BLOOD SPECIMEN Ordering Facility: [facility] Address: [address] [place] [address] Performed By: #### C ARNPL #### [facility] CLIA [id number] [address] [place] [address] [place] C0/Total carnitine [Molar fraction] 0.675 Low 0.700-0.900 [facility] Comment on above: Order Comment: Rl chetna Type: BLOOD SPECIMEN Ordering Facility: [facility] Address: [address] [place] [address] Result Comment: NOTE : The determination of [...] determined by the Pathology and Laboratory Medicine [place] at the [facility]. The U.S. Food and Drug Administration has not approved or cleared this test, however, FDA clearance or approval is not currently required for clinical use. Performed By: #### C ARNPL #### [facility] CLIA [id number] [address] [place] [address] [place] Carnitine [Moles/Vol] 40 umol/L Normal 27-68 [facility] Comment on above: Order Comment: Speci men Type: BLOOD SPECIMEN Ordering Facility: [facility] Address: [address] Performed By: #### C ARNPL #### [facility] CLIA [id number] [address] [place] [address] [place] CK SerPl-cCncon 10-17-2022 CK [Catalytic activity/Vol] 50 U/L Normal 42-196 [facility] Comment on above: Order Comment: Speci men Type: BLOOD SPECIMEN Ordering Facility: [facility] Address: [place] [address] Performed By: #### 3 016-3, 2156-09 #### [facility] IA [id number] [address] [place] [address] [place] CRP SerPl-mCncon 10-17-2022 CRP [Mass/Vol] 0.6 mg/dL Normal <0.9 [facility] Comment on above: Order Comment: Speci men Type: BLOOD SPECIMEN Ordering Facility: [facility] Address: [place] [address] Performed By: #### 3 016-3, 2156-09 #### [facility] CLIA [id number] [address] [place] [address] [place] CYTOKINE PANEL 13, SERUMon 0 10-17-2022 INTERFERON GAMMA <4.2 Normal <=4.2 [facility] Comment on above: Order Comment: Speci men Type: BLOOD SPECIMEN Ordering Facility: [facility] Address: [address] [place] [address] Performed By: #### 3 016-3, 1987-08, 2156-09 #### [facility] CLIA [id number] [address] [place] [address] [place] INTERLEUKIN 1 BETA <6.5 Normal <=6.7 [facility] Comment on above: Order Comment: Speci men Type: BLOOD SPECIMEN Ordering Facility: [facility] Address: [address] [place] [address] Performed By: #### 3 016-3, 1987-08, 2156-09 #### [facility] CLIA [id number] [address] [place] [address] [place] INTERLEUKIN 10 3.2 pg/mL High <=2.8 [facility] Comment on above: Order Comment: Speci men Type: BLOOD SPECIMEN Ordering Facility: [facility] Address: [address] [place] [address] Performed By: #### 3 016-3, 2156-09 #### [facility] CLIA [id number] [address] [place] [address] [place] INTERLEUKIN 12 <1.9 Normal <=1.9 [facility] Comment on above: Order Comment: Speci men Type: BLOOD SPECIMEN Ordering Facility: [facility] Address: [address] [place] [address] Performed By: #### 3 016-3, 1987-08, 2156-09 #### [facility] CLIA [id number] [address] [place], [place] [address] [place] [address] [place] INTERLEUKIN 13 <1.7 Normal <=2.3 [facility] Comment on above: Order Comment: Speci men Type: BLOOD SPECIMEN Ordering Facility: [facility] Address: [address] [place] [address] Performed By: #### 3 016-3, 2156-09 #### [facility] CLIA [id number] [address] [place] [address] [place] INTERLEUKIN 17 <1.4 Normal <=1.4 [facility] Comment on above: Order Comment: Speci men Type: BLOOD SPECIMEN Ordering Facility: [facility] Address: [address] [place] [address] Performed By: #### 3 016-3, 2156-09 #### [facility] CLIA [id number] [address] [place] [address] [place] INTERLEUKIN 2 <2.1 Normal <=2.1 [facility] Comment on above: Order Comment: Speci men Type: BLOOD SPECIMEN Ordering Facility: [facility] Address: [address] [place] [address] Performed By: #### 3 , 2156-09 #### [facility] CLIA [id number] [address] [place] [address] [place] INTERLEUKIN 4 (INT4) <2.2 Normal <=2.2 [facility] Comment on above: Order Comment: Speci men Type: BLOOD SPECIMEN Ordering Facility: [facility] Address: [address] [place] [address] Performed By: #### 3 3, 2156-09 #### [facility] CLIA [id number] [address] [place] [address] [place] INTERLEUKIN 5 <2.1 Normal <=2.1 [facility] Comment on above: Order Comment: Speci men Type: BLOOD SPECIMEN Ordering Facility: [facility] Address: [address] [place] [address] Performed By: #### 3 016-3, 2156-09 #### [facility] CLIA [id number] [address] [place] [address] [place] INTERLEUKIN 6 <2.0 Normal <=2.0 [facility] Comment on above: Order Comment: Speci men Type: BLOOD SPECIMEN Ordering Facility: [facility] Address: [address] [address] Performed By: #### 3 , 2156-09 #### [facility] CLIA [id number] [address] [place] [address] [place] INTERLEUKIN 8 <3.0 Normal <=3.0 [facility] Comment on above: Order Comment: Speci men Type: BLOOD SPECIMEN Ordering Facility: [facility] Address: [address] [address] Performed By: #### 3 , 1987-08, 2156-09 #### [facility] CLIA [id number] [address] [place], [place] [id number] [place] [address] [place] INTERLEUKIN-2 RECEPTOR 355.4 pg/mL Normal 175.3-858.2 [facility] Comment on above: Order Comment: Speci men Type: BLOOD SPECIMEN Ordering Facility: [facility] Address: [address] [place] [address] Performed By: #### 3 , 2156-09 #### [facility] CLIA [id number] [address] [place], [place] [id number] [place] [address] [place] TUMOR NECROSIS FACTOR - ALPHA 1.9 pg/mL Normal <=7.2 [facility] Comment on above: Order Comment: Speci men Type: BLOOD SPECIMEN Ordering Facility: [facility] Address: [address] [place] [address] Result Comment: INTE RPRETIVE INFORMATION: Cytokines Results are used to understand the pathophysiology of immune, infectious, or inflammatory disorders, or may be used for research purposes. This test was developed and its performance characteristics determined by [email or web address]. It has not been cleared or approved by the [place] Food and Drug Administration. This test was performed in a CLIA certified laboratory and is intended for clinical purposes. Performed By: [email or web address] [address] [place] [address] Conservation [employer] Professor: Terry Jacome MD, PhD Performed By: #### 3 016-, 2156-09 #### [facility] CLIA [id number] [address] [facility] [place] [address] [place] ESR Westergren method (Bld) [Velocity]on 10-17-2022 ESR (Bld) [Velocity] 5 mm/h Normal 0-20 [facility] Comment on above: Order Comment: Speci men Type: BLOOD SPECIMEN Ordering Facility: [facility] Address: [address] [address] Performed By: #### 4 537-7 #### [facility] CLIA [id number] [address] [facility] [id number] [place] ESTROGEN FRACTION BLon 10-17 ESTRADIOL 238.7 pg/mL Normal [facility] Comment on above: Order Comment: Speci men Type: BLOOD SPECIMEN Ordering Facility: [facility] Address: [address] [place] [address] Result Comment: REFE RENCE INTERVAL: Estradiol by [employer] Candy Maker For a complete set of all established reference intervals, refer to [employer]/Tests/Pub/[id number]. This test was developed and its performance characteristics determined by [email or web address]. It has not been cleared or approved by the [place] Food and Drug Administration. This test was performed in a CLIA certified laboratory and is intended for clinical purposes. Performed By: #### 3 016-3, 1987-, 2156-09 #### [facility] CLIA [id number] [address] [facility] [place] [address] [place] ESTROGENS TOTAL 354.8 pg/mL Normal [facility] Comment on above: Order Comment: Speci men Type: BLOOD SPECIMEN Ordering Facility: [facility] Address: [address] [place], [place] [address] Result Comment: Refe rence interval of estrogens (pg/mL) Estrone Estradiol Total Estrogens Early follicular <150.0 30.0-100.0 30.0-250.0 Late follicular 100.0-250.0 100.0-400.0 200.0-650.0 Luteal <200.0 50.0-150.0 50.0-350.0 Post-menopausal 3.0-32.0 2.0-21.0 5.0-52.0 REFERENCE INTERVAL: Estrogens Total Calculation For a complete set of all established reference intervals, refer to [employer]/Tests/Pub/[id number]. Performed By: [email or web address] [address] [place] [address] Conservation [employer] Professor: Terry Jacome MD, PhD Performed By: #### 3 , 2156-09 #### [facility] CLIA [id number] [place] ESTRONE 116.1 pg/mL Normal [facility] Comment on above: Order Comment: [facility] B[facility]OD [facility]CIM[facility] Ordering Facility: [facility] Address: [address] [place] [address] Result Comment: INTERPRETIVE INFORMATION: Estrone by [employer] C[employer] Maker For a complete set of all established reference intervals, refer to [employer]/Tests/Pub/[id number]. This test was developed and its performance characteristics determined by [email or web address]. It has not been cleared or approved by the [place] Food and Drug Administration. This test was performed in a CLIA certified laboratory and is intended for clinical purposes. Performed By: #### 3 , 2156-09 #### [facility] CLIA [id number] [address] [place] [address] [place] GAD65 Ab Ser-aCncon 10-18-19 23 Glutamate decarboxylase 65 Ab Qn (S) <5.0 Normal <=5.0 [facility] Comment on above: Order Comment: Specmaribel [facility] Type: BLOOD SPECIMEN Ordering Facility: [facility] Address: [address] [place] [address] Result Comment: Anti -glutamic acid decarboxylase antibody [...] correlation is required. Performed By: #### 3 , 2156-09 #### [facility] CLIA [id number] [facility]. [address] [place] Glutamate decarboxylase 65 A b Qn (S)on 10-17-2022 GLUTAMIC ACID DECARBOXYLAS AB QUALITATIVE Negative Normal Negative [facility] Comment on above: Order Comment: Rl basilio Type: BLOOD SPECIMEN Ordering Facility: [facility] Address: [address] [place] [address] Performed By: #### 3 016-3, 1987-08, 2156-09 #### [facility] [place] [id number] [address] [place] HbA1c (Bld)on 10-17-2022 Average glucose Estimated from glycated hemoglobin (Bld) [Mass/Vol] 88 mg/dL Normal [facility] Comment on above: Order Comment: Rl basilio Type: BLOOD SPECIMEN Ordering Facility: [facility] Address: [address] [place] [address] Result Comment: eAG: (Estimated average glucose) is a calculated value from HgbA1c and is retail service representative of the average blood glucose level in the last 2-3 month period. Performed By: #### 3 -3, 1987-08, 2156-09 #### [facility] IA [id number] [address] STATES [facility] HbA1c (Bld) [Mass fraction] 4.7 % Normal 4.3-5.6 [facility] Comment on above: Order Comment: Rl basilio Type: BLOOD SPECIMEN Ordering Facility: [facility] Address: [address] [place] [address] Result Comment: Amer [place] Diabetes Association guidelines indicate that patients with HgbA1c in the range 5.7-6.4% are at increased risk for development of diabetes, and intervention by lifestyle modification may be beneficial. HgbA1c greater or equal to 6.5% is considered diagnostic of diabetes. Performed By: #### 3 016-3, 1987-08, 2156-09 #### [facility] IA [id number] [address] [place] IgA SerPl-mCncon 10-17-2022 IgA [Mass/Vol] 169 mg/dL Normal 70-400 [facility] Comment on above: Order Comment: Speci men Type: BLOOD SPECIMEN Ordering Facility: [facility] Address: [facility] [place] [id number] Performed By: #### 3 016-3, 2156-09 #### [facility] CLIA [id number] [address] [place] [address] [place] IgG SerPl-mCncon 10-17-2022 IgG [Mass/Vol] 932 mg/dL Normal 700-1600 [facility] Comment on above: Order Comment: Speci men Type: BLOOD SPECIMEN Ordering Facility: [facility] Address: [facility] [place] [address] Performed By: #### 3 016-3, 2156-09 #### [facility] CLIA [id number] [address] [place] IgM SerPl-mCncon 10-17-2022 IgM [Mass/Vol] 199 mg/dL Normal 40-230 [facility] Comment on above: Order Comment: Speci men Type: BLOOD SPECIMEN Ordering Facility: [facility] Address: [facility] [place] [address] Performed By: #### 3 016-3, 2156-09 #### [facility] CLIA [id number] [place] LDH SerPl-cCncon 10-17-2022 LDH [Catalytic activity/Vol] 160 U/L Normal 135-214 [facility] Comment on above: Order Comment: Speci men Type: BLOOD SPECIMEN Ordering Facility: [facility] Address: [address] [address] Performed By: #### 3 016-3, 2156-09 #### [facility] CLIA [id number] [address] [place] [address] [place] ORGANIC ACIDS UR, QUANT W/CO NSULTon 10-17-2022 2-Hydroxyglutarate/C reatinine (U) [Molar ratio] 3.6 umol/mmolCr Normal 0.6-17.7 [facility] Comment on above: Order Comment: Speci men Type: URINE SPECIMEN Ordering Facility: [facility] Address: [address] [place] [address] Performed By: #### L [id number] #### [facility] CLIA [id number] [address] [place] [address] 2-Hydroxyisovalerate /Creatinine (U) [Molar ratio] <0.1 Normal 0.0-0.1 [facility] Comment on above: Order Comment: Speci men Type: URINE SPECIMEN Ordering Facility: [facility] Address: [address] [place], [place] [address] Performed By: #### L [id number] #### [facility] CLIA [id number] [address] [place] [address] [place] 4-Ajealu-2-hydroxybu tyrate (C5-OH)/Creatinine (U) [Molar ratio] <0.6 Normal 0.0-1.3 [facility] Comment on above: Order Comment: Speci men Type: URINE SPECIMEN Ordering Facility: [facility] Address: [address] [place], [place] [address] Performed By: #### L [id number] #### [facility] CLIA [id number] [address] [place] [address] 2-Methylbutyrylglyci ne/Creatinine (U) [Molar ratio] 0.4 umol/mmolCr Normal 0.0-0.4 [facility] Comment on above: Order Comment: Speci men Type: URINE SPECIMEN Ordering Facility: [facility] Address: [address] [place] [address] Performed By: #### L [id number] #### [facility] CLIA [id number] [facility] [address] [place] 2-Methylcitrate/Crea tinine (U) [Molar ratio] 1.8 umol/mmolCr Normal 1.0-13.9 [facility] Comment on above: Order Comment: Speci men Type: URINE SPECIMEN Ordering Facility: [facility] Address: [address] [place] [address] Performed By: #### L [id number] #### [facility] CLIA [id number] [address] OF [place] 2-Oxoadipate/Creatin ine (U) [Molar ratio] <1.6 Normal 0.0-3.3 [facility] Comment on above: Order Comment: Speci men Type: URINE SPECIMEN Ordering Facility: [facility] Address: [address] Performed By: #### L [id number] #### [facility] CLIA [id number] [address] [place] [address] [place] 3-Hydroxyglutarate/C reatinine (U) [Molar ratio] 0.0 umol/mmolCr Normal 0.0-0.7 [facility] Comment on above: Order Comment: Speci men Type: URINE SPECIMEN Ordering Facility: [facility] Address: [address] [place] [address] Performed By: #### L [id number] #### [facility] CLIA [id number] [address] [place] [address] [place] 3-Hydroxyisovalerate /Creatinine (U) [Molar ratio] 5.0 umol/mmolCr Normal 2.1-27.3 [facility] Comment on above: Order Comment: Speci men Type: URINE SPECIMEN Ordering Facility: [facility] Address: [address] [place] [address] Performed By: #### L [id number] #### [facility] CLIA [id number] [address] OF [place] 3-Methylcrotonylglyc ine/Creatinine (U) [Molar ratio] <0.3 Normal <0.3 [facility] Comment on above: Order Comment: Speci men Type: URINE SPECIMEN Ordering Facility: [facility] Address: [address] [place] [address] Performed By: #### L [id number] #### [facility] CLIA [id number] [address] OF [place] 3-Methylglutaconate/ Creatinine (U) [Molar ratio] 0.7 umol/mmolCr Normal 0.0-2.0 [facility] Comment on above: Order Comment: Speci men Type: URINE SPECIMEN Ordering Facility: [facility] Address: [address] Performed By: #### L [id number] #### [facility] CLIA [id number] [address] [place] [address] [place] 3-Methylglutarate/Cr eatinine (U) [Molar ratio] 0.5 umol/mmolCr Normal 0.0-0.6 [facility] Comment on above: Order Comment: Speci men Type: URINE SPECIMEN Ordering Facility: [facility] Address: [address] [place] [address] Performed By: #### L [id number] #### [facility] CLIA [id number] [address] [place] [address] [place] 4-Hydroxyphenylaceta te/Creatinine (U) [Molar ratio] 149.0 umol/mmolCr High 5.7-147.5 [facility] Comment on above: Order Comment: Speci men Type: URINE SPECIMEN Ordering Facility: [facility] Address: [address] [place] [address] Performed By: #### L [id number] #### [facility] CLIA [id number] [facility] [address] OF [place] 4-Hydroxyphenyllacta te/Creatinine (U) [Molar ratio] 4.3 umol/mmolCr Normal 1.3-23.0 [facility] Comment on above: Order Comment: Speci men Type: URINE SPECIMEN Ordering Facility: [facility] Address: [address] Performed By: #### L [id number] #### [facility] CLIA [id number] [address] [place] [address] [place] 4-Hydroxyphenylpyruv ate/Creatinine (U) [Molar ratio] 0.0 umol/mmolCr Normal <=0.0 [facility] Comment on above: Order Comment: Speci men Type: URINE SPECIMEN Ordering Facility: [facility] Address: [address] Performed By: #### L [id number] #### [facility] CLIA [id number] [address] [place] [address] [place] 5-Oxoproline/Creatin ine (U) [Molar ratio] 1.9 umol/mmolCr Normal 0.4-3.1 [facility] Comment on above: Order Comment: Speci men Type: URINE SPECIMEN Ordering Facility: [facility] Address: [address] [place] [address] Performed By: #### L [id number] #### [facility] CLIA [id number] [address] [place] [address] [place] Acetoacetate/Creatin ine (U) [Molar ratio] <0.9 High 0.0-0.5 [facility] Comment on above: Order Comment: Speci men Type: URINE SPECIMEN Ordering Facility: [facility] Address: [address] [place] [address] Performed By: #### L [id number] #### [facility] CLIA [id number] [address] [place] [address] [place] Aconitate/Creatinine (U) [Molar ratio] 14.8 umol/mmolCr Normal 8.5-109.6 [facility] Comment on above: Order Comment: Speci men Type: URINE SPECIMEN Ordering Facility: [facility] Address: [address] [place], [place] [address] Performed By: #### L [id number] #### [facility] CLIA [id number] [address] [place] [address] OF [facility] Adipate/Creatinine (U) [Molar ratio] 3.0 umol/mmolCr Normal 0.3-9.2 [facility] Comment on above: Order Comment: Speci men Type: URINE SPECIMEN Ordering Facility: [facility] Address: [address] Performed By: #### L [id number] #### [facility] CLIA [id number] [address] [place] [address] [place] Alpha hydroxybutyrate/Crea tinine (U) [Molar ratio] <1.0 Normal 0.0-2.7 [facility] Comment on above: Order Comment: Speci men Type: URINE SPECIMEN Ordering Facility: [facility] Address: [address] Performed By: #### L [id number] #### [facility] CLIA [id number] [address] [place] [address] Alpha ketoglutarate/Creati nine (U) [Molar ratio] 4.9 umol/mmolCr Normal 0.2-42.7 [facility] Comment on above: Order Comment: Speci men Type: URINE SPECIMEN Ordering Facility: [facility] Address: [address] Performed By: #### L [id number] #### [facility] CLIA [id number] [address] [place] [address] [place] Benzoate/Creatinine (U) [Molar ratio] <12.2 Normal 0.0-14.6 [facility] Comment on above: Order Comment: Speci men Type: URINE SPECIMEN Ordering Facility: [facility] Address: [address] Performed By: #### L [id number] #### [facility] CLIA [id number] [address] [place] [address] [place] Beta hydroxybutyrate/Crea tinine (U) [Molar ratio] <1.6 Normal 0.1-2.6 [facility] Comment on above: Order Comment: Speci men Type: URINE SPECIMEN Ordering Facility: [facility] Address: [address] [place] [address] Performed By: #### L [id number] #### [facility] CLIA [id number] [address] [place] [address] [place] Butyrylglycine/Creat inine (U) [Molar ratio] 0.0 umol/mmolCr Normal 0.0-0.7 [facility] Comment on above: Order Comment: Speci men Type: URINE SPECIMEN Ordering Facility: [facility] Address: [address] [place] [address] Performed By: #### L [id number] #### [facility] CLIA [id number] [address] [place] [address] [place] Creatinine (U) [Mass/Vol] 53.5 mg/dL Normal 42.2-237.9 [facility] Comment on above: Order Comment: Speci men Type: URINE SPECIMEN Ordering Facility: [facility] Address: [address] [place] [address] Performed By: #### L [id number] #### [facility] CLIA [id number] [address] [place] [address] [place] Ethylmalonate/Creati nine (U) [Molar ratio] 1.2 umol/mmolCr Normal 0.5-6.2 [facility] Comment on above: Order Comment: Speci men Type: URINE SPECIMEN Ordering Facility: [facility] Address: [address] [place] [address] Performed By: #### L [id number] #### [facility] CLIA [id number] [address] [place] [address] [place] Fumarate/Creatinine (U) [Molar ratio] 0.9 umol/mmolCr Normal 0.3-2.6 [facility] Comment on above: Order Comment: Speci men Type: URINE SPECIMEN Ordering Facility: [facility] Address: [address] Performed By: #### L [id number] #### [facility] CLIA [id number] [address] STATES [place] Glutarate/Creatinine (U) [Molar ratio] 0.1 umol/mmolCr Normal 0.0-1.4 [facility] Comment on above: Order Comment: Speci men Type: URINE SPECIMEN Ordering Facility: [facility] Address: [address] [place], [place] [address] Performed By: #### L [id number] #### [facility] CLIA [id number] [address] [place] [address] [place] Hexanoylglycine/Crea tinine (U) [Molar ratio] 0.1 umol/mmolCr Normal 0.0-0.1 [facility] Comment on above: Order Comment: Speci men Type: URINE SPECIMEN Ordering Facility: [facility] Address: [address] [place], [place] [address] Performed By: #### L [id number] #### [facility] CLIA [id number] [address] [place] [address] [place] Isobutyrylglycine/Cr eatinine (U) [Molar ratio] 0.6 umol/mmolCr Normal 0.0-1.2 [facility] Comment on above: Order Comment: Speci men Type: URINE SPECIMEN Ordering Facility: [facility] Address: [address] [place], [place] [address] Performed By: #### L [id number] #### [facility] CLIA [id number] [address] [place] [address] [place] Isocitrate/Creatinin e (U) [Molar ratio] 48.3 umol/mmolCr Normal 9.1-271.9 [facility] Comment on above: Order Comment: Speci men Type: URINE SPECIMEN Ordering Facility: [facility] Address: [address] Performed By: #### L [id number] #### [facility] CLIA [id number] [address] [place] [address] [place] Lactate/Creatinine (U) [Molar ratio] 9.8 umol/mmolCr Normal 2.9-47.2 [facility] Comment on above: Order Comment: Speci men Type: URINE SPECIMEN Ordering Facility: [facility] Address: [address] Performed By: #### L [id number] #### [facility] CLIA [id number] [address] [place] [address] [place] Malate/Creatinine (U) [Molar ratio] 0.3 umol/mmolCr Normal 0.0-1.1 [facility] Comment on above: Order Comment: Speci men Type: URINE SPECIMEN Ordering Facility: [facility] Address: [address] Performed By: #### L [id number] #### [facility] CLIA [id number] [address] [place] [address] [place] Malonate/Creatinine (U) [Molar ratio] 0.0 umol/mmolCr Normal 0.0-0.1 [facility] Comment on above: Order Comment: Speci men Type: URINE SPECIMEN Ordering Facility: [facility] Address: [address] Performed By: #### L [id number] #### [facility] CLIA [id number] [address] [place] [address] [place] Methylmalonate/Creat inine (U) [Molar ratio] <0.4 Normal 0.0-0.6 [facility] Comment on above: Order Comment: Speci men Type: URINE SPECIMEN Ordering Facility: [facility] Address: [address] [place] [address] Performed By: #### L [id number] #### [facility] [place] [id number] [address] [place] [address] [place] Methylsuccinate/Crea tinine (U) [Molar ratio] 0.2 umol/mmolCr Normal 0.0-1.4 [facility] Comment on above: Order Comment: Speci men Type: URINE SPECIMEN Ordering Facility: [facility] Address: [address] Performed By: #### L [id number] #### [facility] IA [id number] [address] [place] [address] [place] N-acetylaspartate/Cr eatinine (U) [Molar ratio] 1.6 umol/mmolCr Normal 0.1-8.9 [facility] Comment on above: Order Comment: Speci men Type: URINE SPECIMEN Ordering Facility: [facility] Address: [address] Performed By: #### L [id number] #### [facility] [place] [id number] [address] [place] [address] [place] N-acetyltyrosine/Cre atinine (U) [Molar ratio] <0.2 Normal 0.0-1.2 [facility] Comment on above: Order Comment: Speci men Type: URINE SPECIMEN Ordering Facility: [facility] Address: [address] [place] [address] Performed By: #### L [id number] #### [facility] [facility] [place] [id number] [address] [place] [address] [place] Oxalate/Creatinine (U) [Molar ratio] <1.0 Normal 0.7-12.4 [facility] Comment on above: Order Comment: Speci men Type: URINE SPECIMEN Ordering Facility: [facility] Address: [address] [place] [address] Performed By: #### L [id number] #### [facility] CLIA [id number] [address] [place] [address] [place] Pyruvate/Creatinine (U) [Molar ratio] <0.2 Normal 0.1-2.6 [facility] Comment on above: Order Comment: Speci men Type: URINE SPECIMEN Ordering Facility: [facility] Address: [address] [address] Performed By: #### L [id number] #### [facility] CLIA [id number] [address] [place] [address] [place] Sebacate (C8)/Creatinine (U) [Molar ratio] 0.0 umol/mmolCr Normal [facility] Comment on above: Order Comment: Speci men Type: URINE SPECIMEN Ordering Facility: [facility] Address: [address] [place] [address] Performed By: #### L [id number] #### [facility] CLIA [id number] [address] [place] [address] [place] Suberate/Creatinine (U) [Molar ratio] 2.5 umol/mmolCr Normal 0.0-7.4 [facility] Comment on above: Order Comment: Speci men Type: URINE SPECIMEN Ordering Facility: [facility] Address: [address] [place] [address] Performed By: #### L [id number] #### [facility] CLIA [id number] [address] [place] [address] [place] Suberylglycine/Creat inine (U) [Molar ratio] 0.0 umol/mmolCr Normal <=0.0 [facility] Comment on above: Order Comment: Speci men Type: URINE SPECIMEN Ordering Facility: [facility] Address: [address] [place], [place] [address] Performed By: #### L [id number] #### [facility] CLIA [id number] [address] [place] [address] [place] Succinate/Creatinine (U) [Molar ratio] 1.8 umol/mmolCr Normal 0.3-27.4 [facility] Comment on above: Order Comment: Speci men Type: URINE SPECIMEN Ordering Facility: [facility] Address: [address] [place] [address] Performed By: #### L [id number] #### [facility] CLIA [id number] [facility] [address] Succinylacetone/Crea tinine (U) [Molar ratio] <0.4 Normal <0.4 [facility] Comment on above: Order Comment: Speci men Type: URINE SPECIMEN Ordering Facility: [facility] Address: [address] [address] Performed By: #### L [id number] #### [facility] CLIA [id number] [address] [place] [address] UOA CONSULTATION Normal [facility] Comment on above: Order Comment: Speci men Type: URINE SPECIMEN Ordering Facility: [facility] Address: [address] [place] [address] Result Comment: This urine organic acid analysis [...] and its performance characteristics determined by the [facility]. It has not been cleared or approved by the US Food and Drug Administration. The FDA had determined that such clearance or approval is not necessary. Performed By: #### L [id number] #### [facility] CLIA [id number] [address] [place] [address] [place] UOA REVIEW Reviewed by Patrick Proctro MD, Ph.D ([id number]) Normal [facility] Comment on above: Order Comment: Speci men Type: URINE SPECIMEN Ordering Facility: [facility] Address: [address] [place] [address] Performed By: #### L [id number] #### [facility] CLIA [id number] [address] [place] [address] [place] Uracil/Creatinine (U) [Molar ratio] 0.9 umol/mmolCr Normal 0.0-5.1 [facility] Comment on above: Order Comment: Speci men Type: URINE SPECIMEN Ordering Facility: [facility] Address: [address] [place] [address] Performed By: #### L [id number] #### [facility] CLIA [id number] [address] [place] [address] [place] PYRUVATE+LACTATE BLon 2022 Lactate [Moles/Vol] 1.2 mmol/L Normal 0.5-2.2 [facility] Comment on above: Order Comment: Speci men Type: BLOOD SPECIMEN Ordering Facility: [facility] Address: [address] [place] [address] Result Comment: This test was developed and its performance characteristics determined by [facility]'s Fuad JRajesh [facility] Pathology and Laboratory Medicine [place] ([facility]). It has not been cleared or approved by the FDA. [facility] is regulated under CLIA as qualified to perform high-complexity testing. This test is used for clinical purposes. It should not be regarded as investigational or for research. Performed By: #### L ACPYR #### [facility] CLIA [id number] [address] [place] [address] [place] Pyruvate (Bld) [Moles/Vol] 0.04 mmol/L Normal 0.03-0.10 [facility] Comment on above: Order Comment: Speci men Type: BLOOD SPECIMEN Ordering Facility: [facility] Address: [address] [place], [place] [address] Result Comment: This test was developed and its performance characteristics determined by [facility]'s [facility] [place] ([facility]). It has not been cleared or approved by the FDA. -[facility] is regulated under CLIA as qualified to perform high-complexity testing. This test is used for clinical purposes. It should not be regarded as investigational or for research. Performed By: #### L ACPYR #### [facility] CLIA [id number] [address] [facility] [place] [address] [place] T4 Free SerPl-mCncon 023 Free T4 [Mass/Vol] 1.3 ng/dL Normal 0.9-1.7 Lisa harrell Comment on above: Order Comment: Rl basilio Type: BLOOD SPECIMEN Ordering Facility: [facility] Address: [address] [place] [address] Performed By: #### 3 016-3, 1987-, 2156-09 #### [facility] CLIA [id number] [address] [facility] [place] [address] [place] TSH SerPl-aCncon 10-17-2022 TSH Qn 2.050 m[IU]/L Normal 0.270-4.200 Lisa parry Comment on above: Order Comment: Rl basilio Type: BLOOD SPECIMEN Ordering Facility: [facility] Address: [address] [place], [place] [address] Result Comment: If t he patient is , TSH reference range varies by gestational period: First Trimester (weeks 9-12): 0.180-2.990 mIU/L Second Trimester: 0.110-3.980 mIU/L Third Trimester: 0.480-4.710 mIU/L Olman Rodriguez et al. A Practical Approach for the Verifications and Determination of Site- and Trimester-Specific Reference Intervals for Thyroid Function tests in . Thyroid, 2019:29:3:412-420. Reji Patterson, et al. 2017 Guidelines of the [place] Thyroid Association for the Diagnosis and Management of Thyroid Disease during and the . Thyroid, 2017:27:3:315-389. Performed By: #### 3 016-3, 1987-08, 2156-09 #### [facility] CLIA [id number] [address] [place] [address] [place] VOLTAGE GATED CA IGGon 10-17 P/Q-TYPE CALCIUM CHANNEL ANTIBODY 10.1 pmol/L Normal 0.0-24.5 [facility] Comment on above: Order Comment: Speci men Type: BLOOD SPECIMEN Ordering Facility: [facility] Address: [address] Result Comment: INTE RPRETIVE INFORMATION: P/Q-Type Calcium Channel Antibody 0.0 to 24.5 pmol/L ............. Negative 24.6 to 45.6 pmol/L ............ Indeterminate 45.7 pmol/L or greater.......... Positive This test was developed and its performance characteristics determined by [facility]. It has not been cleared or approved by the US Food and Drug Administration. This test was performed in a CLIA certified laboratory and is intended for clinical purposes. Performed By: [facility] [address] [place] [address] Conservation Biology Professor: Terry Jacome MD, PhD Performed By: #### 3 016-3, 1987-08, 2156-09 #### [facility] CLIA [id number] [address] [place] [address] [place] VOLTAGE-GATED POTASSIUM VARGAS ABon 10-17-2022 VOLTAGE-GATED POTASSIUM CHANNEL AB, SER 0 pmol/L Normal 0-31 [facility] Comment on above: Order Comment: Speci men Type: BLOOD SPECIMEN Ordering Facility: [facility] Address: [address] [place] [address] Result Comment: INTE RPRETIVE INFORMATION: Voltage-Gated Potassium [...] developed and its performance characteristics determined by [facility]. It has not been cleared or approved by the US Food and Drug Administration. This test was performed in a CLIA certified laboratory and is intended for clinical purposes. Performed By: [facility] [address] [place] [address] Conservation [employer] Professor: Terry Jacome MD, PhD Performed By: #### 3 016-3, 1987-, 2157 #### [facility] CLIA [id number] [address] [facility] [address] [place] NM GASTRIC EMPTYING SOLIDon 09-12-2022 NM GASTRIC EMPTYING SOLID * * *Final Report* * * DATE OF EXAM: Sep 12 2022 2:44PM [facility] 0017 - [place] GASTRIC EMPTYING SOLID / PROCEDURE REASON: Nausea [...] 4 HOURS IS CONSISTENT WITH SEVERE GASTROPARESIS. Tree Wrapper: MINAL Transcribe Date/Time: Sep 12 2022 3:02P Dictated by : LUZ MARINA VÁZQUEZ MD This examination was interpreted and the report reviewed and electronically signed by: LUZ MARINA VÁZQUEZ MD on Sep 12 2022 3:05PM EST [id number] Normal [facility] (AVXRMO) BELGICA HARPER ([id number]) 1990 F Date Time Provider Department 09/09/22 DIEGO RICKS AVXRPA During your visit today, we recorded the [...] Itching Date Reviewed: 08/31/2022 Reviewed by: Wilma Limon, JW - Fully Assessed Reason for Visit: Future [...] Encounter Status:Closed by DIEGO RICKS on 09/09/22 [facility] CITRATE URINE 24HRon 023 Citric Acid, U, 24hr 472 mg/24 hr Normal 320-1240 [facility] Comment on above: Result Comment: This test was developed and its performance characteristics determined by [facility]. It has not been cleared or approved by the Food and Drug Administration. Performed By: #### A LPHPHN #### [facility] [address] [address] [address] Li Nagel Citric Acid, Urine 472 mg/L Normal Undefined [facility] Comment on above: Performed By: #### A LPHPHN #### [facility] [address] [place], [place] [address] Dr. Li Nagel OXALATE 24HR URINEon 023 Oxalates, Urine 19 mg/L Normal Undefined [facility] Comment on above: Performed By: #### O X24HR #### [facility] [address] [address] [address] Li Nagel Oxalates, Urine 24hr 19 mg/24 hr Normal 4-31 [facility] Comment on above: Performed By: #### O X24HR #### [facility] [address] [place] [address] Dr. Li Nagel MAGNESIUM 24HR URINEon 07-09 Magnesium 24hr Urine 45.0 mg/24 hr Normal 12.0-293.0 [facility] Comment on above: Performed By: #### I MMUN G #### [facility] [address] [place] [address] Dr. Li Nagel Magnesium UR 4.5 mg/dL Normal Not Estab. [facility] Comment on above: Performed By: #### I MMUN G #### [facility] [address] [place] [address] Dr. Li Nagel PHOSPHORUS 24HR URINEon 06-22 Phosphorus, Urine 51.4 mg/dL Normal Not Estab. [facility] Comment on above: Performed By: #### P HOS 24 #### [facility] [address] [place] [address] Dr. Li Nagel Phosphorus, Urine 24hr 514 mg/24 hr Normal 261-1078 [facility] Comment on above: Performed By: #### P HOS 24 #### [facility] [address] [place] [address] Dr. Li Nagel URIC ACID 24 HR URINEon 06-22 Uric Acid, Urine 64.0 mg/dL Normal Not Estab. [facility] Comment on above: Performed By: #### A LPHPHN #### [facility] [address] [place] [address] Dr. Li Nagel Uric Acid, Urine 24hr 640.0 mg/24 hr Normal 173.7-902.1 [facility] Comment on above: Performed By: #### A LPHPHN #### [facility] [address] [place] [address] Dr. Li Nagel CALCIUM 24 HR URINEon 2022 CALC, 24 HR UR 155.0 mg/24 hr Normal 100.0-300.0 [facility] Comment on above: Performed By: #### I MMUN G #### [facility] [address] [place] [address] Dr. Li Nagel UR CALCIUM 15.5 mg/dL Normal 5.1-21.0 [facility] Comment on above: Performed By: #### I MMUN G #### [facility] [address] [place] [address] Dr. Li Nagel UR TOT VOL 1000 ml/24 HR Normal [facility] Comment on above: Performed By: #### I MMUN G #### [facility] [address] [place] [address] Dr. Li Nagel Performed By: #### A LPHPHN #### [facility] [address] [place] [address] Dr. Li Nagel CREA 24 HR URINEon 3 CREA, 24 HR UR 1891.80 mg/24 hr Critically high 800.00 -1,800. 00 [facility] Comment on above: Performed By: #### A LPHPHN #### [facility] [address] [place] [address] Dr. Li Nagel URINE CREAT 189.18 mg/dL Normal 20.00-300.00 [facility] Comment on above: Performed By: #### A LPHPHN #### [facility] [address] [place] [address] Dr. Li Nagel PTH INTACTon 07-08-2022 PTH, Intact 41 pg/mL Normal 15-65 [facility] Comment on above: Performed By: #### H EPACUT #### [facility] [address] [place] [address] Dr. Li Nagel SODIUM 24 HR URINEon 023 NA, 24 HR UR 149 mmol/24 hr Normal 40-220 [facility] Comment on above: Performed By: #### A LPHPHN #### [facility] [address] [place] [address] Dr. Li Nagel Sodium (U) [Moles/Vol] 149 mmol/L Critically high 30-90 [facility] Comment on above: Performed By: #### A LPHPHN #### [facility] [address] [place] [address] Dr. Li Nagel BUNon 07-06-2022 Urea nitrogen [Mass/Vol] 11.0 mg/dL Normal 7.0-18.0 [facility] Comment on above: Performed By: #### B UN, URIC, CA, K, NA, CL, CO2, CREA #### [facility] [address] [place] [address] Dr. Li Nagel CALCIUMon 07-06-2022 Calcium [Mass/Vol] 9.0 mg/dL Normal 8.5-10.1 [facility] Comment on above: Performed By: #### B UN, URIC, CA, K, NA, CL, CO2, CREA #### [facility] [address] [place] [address] Dr. Li Nagel CHLORIDEon 07-06-2022 Chloride [Moles/Vol] 107 mmol/L Normal 98-107 [facility] Comment on above: Performed By: #### I MMUN G #### [facility] [address] [place] [address] Dr. Li Nagel CO2on 07-06-2022 CO2 [Moles/Vol] 29.2 mmol/L Normal 21.0-32.0 [facility] Comment on above: Performed By: #### I MMUN G #### [facility] [address] [place] [address] Dr. Li Nagel CREATININEon 07-06-2022 Creatinine [Mass/Vol] 0.97 mg/dL Normal 0.55-1.02 [facility] Comment on above: Performed By: #### B UN, URIC, CA, K, NA, CL, CO2, CREA #### [facility] [address] [place] [address] Dr. Li Nagel EGFR-AF TRINIDADIAN >60 Normal >=60 [facility] Comment on above: Performed By: #### B UN, URIC, CA, K, NA, CL, CO2, CREA #### [facility] [address] [place] [address] Dr. Li Nagel EGFR-NON AF TRINIDADIAN >60 Normal >=60 [facility] Comment on above: Performed By: #### B UN, URIC, CA, K, NA, CL, CO2, CREA #### [facility] [address] [place] [address] Dr. Li Nagel NAon 07-06-2022 Sodium [Moles/Vol] 143 mmol/L Normal 136-145 [facility] Comment on above: Performed By: #### I MMUN G #### [facility] [address] [place] [address] Dr. Li Nagel POTASSIUMon 07-06-2022 Potassium [Moles/Vol] 3.6 mmol/L Normal 3.5-5.1 [facility] Comment on above: Performed By: #### I MMUN G #### [facility] [address] [place] [address] Dr. Li Nagel URIC ACID SERUMon 07-06-2022 Urate [Mass/Vol] 4.7 mg/dL Normal 2.6-6.0 [facility] Comment on above: Performed By: #### B UN, URIC, CA, K, NA, CL, CO2, CREA #### [facility] [address] [place] [address] Dr. Li Nagel XR KUB 1 VIEWon [...] by: JACKSON ADKINS Date: 2022-06-30 07:02 Normal [facility] US ABD RIGHT UPPER QUADRANTo n [...] nephrocalcinosis and a few right renal stones. Tree Wrapper: PSCB Transcribe Date/Time: Jun 16 2022 7:46A Dictated by : MINERVA LIM MD This examination was interpreted and the report reviewed and electronically signed by: MINERVA LIM MD on Jun 16 2022 7:48AM EST [id number] Normal [facility] US ABD RT UPPER QUADRANTon 0 06-15-[address] [facility] CT ABD/PEL WO IVCONon 2022 Radiology Result ACTIONABLE Abnormal [facility] No Panel Informationon 05-[address] [facility] XR CHEST 2V FRONTAL/LATon XR CHEST 2V FRONTAL/LAT * * *Final Report* * * DATE OF EXAM: May 27 2022 12:33PM X [id number] - XR CHEST 2V FRONTAL/LAT / [...] tissues: Unremarkable. IMPRESSION: No acute radiographic abnormality. Tree Wrapper: PSCB Transcribe Date/Time: May 27 2022 12:39P Dictated by : MARCELA STILL MD This examination was interpreted and the report reviewed and electronically signed by: MARCELA STILL MD on May 27 2022 12:39PM EST [id number] Normal [facility] [id number] PHENOTYP INGon 05-11-2022 Gbwnt-2-Xwrgticjgjq, Serum 130 mg/dL Normal 100-188 [facility] Comment on above: Result Comment: Perf ormed at: CB Performed By: #### A LPHPHN #### [facility] [address] [place] [address] Dr. Li Nagel Phenotype (PI) MM Normal [facility] Comment on above: Result Comment: Phen [...] Performed at: BN Performed By: #### A LPHPHN #### [facility] [address] [place] [address] [address] [address] Li Nagel HEREDITARY HEMOCHROMATOSIS, DNA ANALYSISon 05-11-2022 Hereditary Hemochromatosis Comment Normal [facility] Comment on above: Result Comment: Resu lt: c.845G>A (p.Qzb713Hde) - Not Detected c.187C>G (p.Pxu57Uoq) - Not Detected c.193A>T (p.Wpn48Bxx) - Not Detected Not associated with increased [...] for patients who are homozygous for c.845G>A (p.Qns327Qmf) and have yet to experience clinical symptoms. . Comments: The most common HFE variants associated with hereditary hemochromatosis are c.845G>A (p.Rlg610Hwl), c.187C>G (p.Gfa47Whc), c.193A>T (p.Fbq53Gbu). While patients homozygous for c.845G>A (p.Gmz329Zkk) are the most likely to present clinical symptoms, less than 10% develop clinically significant iron overload with tissue and organ damage. . Genetic counseling is recommended to discuss the potential clinical implications of positive results, as well as recommendations for testing family members. Genetic Coordinators are available for health care providers to discuss results at [phone] ([phone]). . Test Details: Three variants analyzed: c.845G>A (p.Lqb092Gce), commonly referred to as C282Y c.187C>G (p.Lwb97Snr), commonly referred to as H63D c.193A>T (p.Bdy39Dxz), commonly referred to as S65C . Methods/Limitations: [...] developed and its performance characteristics determined by [employer]. It has not been cleared or approved by the Food and Drug Administration. . References: Brodie BR, Yoav PC, Deborah KV, Raymond LW, Ramsey ; [place] for the Study of Liver Diseases. Diagnosis and management of hemochromatosis: 2011 practice guideline by the [place] the Study of Liver Diseases. Hepatology. 2011 Oct;54(1):328-43. doi: 10.1002/hep.85577. PMID: 01657805; PMCID: [id number]. Cora G, Olegario P, Fabio MCDONALD, Tabatha H, Love O, Zev S, Vazquez I, Koif M, Sunitha S. [facility] best practice guidelines for the molecular genetic diagnosis of hereditary hemochromatosis (HH). Eur J Hum Margaret. 2016 Jul;24(4):479-95. doi: 10.1038/ejhg.2015.128. Epub 2014Oct 29. PMID: 41060839; PMCID: FVJ9202867. . Kenya Hager, PhD, FACMG Dm Reyna, PhD Alexandro Rodriguez, PhD, FACMG Jhony Hammond, PhD, FACMG Oumar Avila, PhD, FACMG Rob Brand, PhD, FACMG Pascale Gracia, PhD, FAC Lala Marvin, PhD, FAC Performed By: #### H [facility] #### [facility] [address] [place] [address] Dr. Li BARCLAY by IFAon 05-06-2022 Antinuclear Antibodies, IFA Negative Normal [facility] Comment on above: Result Comment: Nega tive <1:80 Borderline 1:80 Positive >1:80 ICAP nomenclature: AC-0 For more information about Hep-2 cell patterns use ANApatterns.org, the official website for the International Consensus on Antinuclear Antibody (DENY) Patterns (ICAP). Performed By: #### A LPHPHN #### [facility] [address] [place] [address] Dr. Li Nagel CERULOPLASMINon 05-05-2022 Ceruloplasmin 27.9 mg/dL Normal 19.0-39.0 [facility] Comment on above: Performed By: #### H EPACUT #### [facility] [address] [place] [address] Dr. Li Nagel HEPATITIS A AB IGMon 023 Hep A Ab, IgM Negative Normal Negative [facility] Comment on above: Performed By: #### I MMUN G #### [facility] [address] [place] [address] Dr. Li Nagel IMMUNOGLOBULIN G INDEX SERUM OR CSFon 05-05-2022 Albumin [Mass/Vol] 4.8 g/dL Normal 3.8-4.8 [facility] Comment on above: Performed By: #### I MMUN G #### [facility] [address] [place] [address] Dr. Li Nagel Albumin, CSF NSPINL Normal [facility] Comment on above: Result Comment: Test not performed. No spinal fluid received. contacted Radha at your facility on 05-05-2022 Performed By: #### I MMUN G #### [facility] [address] [place] [address] Dr. Li Nagel CSF IgG Index UPTCAL Normal [facility] Comment on above: Result Comment: Unab le to calculate result since non-numeric result obtained for component test. Performed By: #### I MMUN G #### [facility] [address] [place] [address] Dr. Li Nagel IgG, Quant, CSF NSPINL Normal [facility] Comment on above: Result Comment: Test not performed. No spinal fluid received. contacted Radha at your facility on 05-05-2022 Performed By: #### I MMUN G #### [facility] [address] [place] [address] Dr. Li Nagel IgG/Alb Ratio, CSF UPTCAL Normal [facility] Comment on above: Result Comment: Unab le to calculate result since non-numeric result obtained for component test. Performed By: #### I MMUN G #### [facility] [address] [address] [address] Li Nagel Immunoglobulin G, Qn, Serum 971 mg/dL Normal 586-1602 [facility] Comment on above: Performed By: #### I MMUN G #### [facility] [address] [address] [address] Li Nagel LIVER-KIDNEY MICROSOMAL (LKM ) ABon 05-05-2022 Liver-Kidney Microsomal Ab 1.3 Units Normal 0.0-20.0 [facility] Comment on above: Result Comment: Nega tive 0.0 - 20.0 Equivocal 20.1 - 24.9 Positive >24.9 . LKM type 1 antibodies are detected in patients with autoimmune hepatitis type 2 and in up to 8% of patients with chronic HCV infection. Performed By: #### H EPACUT #### [facility] [address] [place] [address] Dr. Li Nagel MITICHONDRIAL (M2) ANTIBODYo n 05-05-2022 Mitochondrial (M2) Antibody <20.0 Normal 0.0-20.0 [facility] Comment on above: Result Comment: Nega tive 0.0 - 20.0 Equivocal 20.1 - 24.9 Positive >24.9 . Mitochondrial (M2) Antibodies are found in 90-96% of patients with primary biliary cirrhosis. Performed By: #### A LPHPHN #### [facility] [address] [place] [address] Dr. Li Nagel SMOOTH MUSCLE ANTIBODYon Actin (Smooth Muscle) Antibody 9 Units Normal 0-19 [facility] Comment on above: Result Comment: Nega tive 0 - 19 Weak positive 20 - 30 Moderate to strong positive >30 . Actin Antibodies are found in 52-85% of patients with autoimmune hepatitis or chronic active hepatitis and in 22% of patients with primary biliary cirrhosis. Performed By: #### A LPHPHN #### [facility] [address] [address] [address] Li Nagel FERRITINon 05-03-2022 Ferritin [Mass/Vol] 319.0 ng/mL Critically high 6.2-137.0 [facility] Comment on above: Performed By: #### A LPHPHN #### [facility] [address] [address] [address] Li Nagel PAP ACOG PANEL 2: 30 to 65on 04-28-2022 . . Normal [facility] Comment on above: Result Comment: Perf ormed at: BA Performed By: #### I MMUN G #### [facility] [address] [address] [address] Li Nagel Age Gdln ACOG Testing - [facility] Comment on above: Performed By: #### I MMUN G #### [facility] [address] [address] [address] Li Nagel DIAGNOSIS: Comment Normal [facility] Comment on above: Result Comment: NEGA TIVE FOR INTRAEPITHELIAL LESION OR MALIGNANCY. Performed at: BA Performed By: #### I MMUN G #### [facility] [address] [address] [address] Li Nagel HPV Aptima Negative Normal Negative [facility] Comment on above: Result Comment: This nucleic acid amplification test detects fourteen high-risk HPV types (16,18,31,33,35,39,45,51,52,56,58,59,66,68) without differentiation. Performed at: =G Performed By: #### I MMUN G #### [facility] [address] [address] [address] Li Nagel HPV Genotype Reflex Comment Normal [facility] Comment on above: Result Comment: Crit eria not met, HPV Genotype not performed. Performed at: BA Performed By: #### I MMUN G #### [facility] [address] [address] [address] Li Nagel Methodology: Comment Normal [facility] Comment on above: Result Comment: This liquid based ThinPrep(R) pap test was screened with the use of an image guided system. Performed at: WB Performed By: #### I MMUN G #### [facility] [address] [place] [address] Dr. Li Nagel Note: Comment Normal [facility] Comment on above: Result Comment: The [...] Performed By: #### I MMUN G #### [facility] [address] [place] [address] Dr. Li Nagel Performed by: Comment Normal [facility] Comment on above: Result Comment: Gretta Holly Emergency Care Attendant (ASCP) Performed at: BA Performed By: #### I MMUN G #### [facility] [address] [place] [address] Dr. Li Nagel Specimen adequacy: Comment Normal [facility] Comment on above: Result Comment: Sati sfactory for evaluation. No endocervical component is identified. Performed at: BA Performed By: #### I MMUN G #### [facility] [address] [place] [address] Dr. Li Nagel HEPATITIS PANEL, [facility] HBsAg Screen Negative Normal Negative [facility] Comment on above: Performed By: #### H EPACUT #### [facility] [address] [place] [address] Dr. Li Nagel HCV AB <0.1 Normal 0.0-0.9 [facility] Comment on above: Performed By: #### H EPACUT #### [facility] [address] [place] [address] Dr. Li Nagel Hep A Ab, IgM Negative Normal Negative [facility] Comment on above: Performed By: #### H EPACUT #### [facility] [address] [place] [address] Dr. Li Nagel Hep B Core Ab, IgM Negative Normal Negative [facility] Comment on above: Performed By: #### H EPACUT #### [facility] [address] [place], [place] [address] Dr. Li Nagel Interpretation: Comment Normal [facility] Comment on above: Result Comment: Nega tive Not infected with HCV, unless recent infection is suspected or other evidence exists to indicate HCV infection. Performed By: #### H EPACUT #### [facility] [address] [place], [place] [address] Dr. Li Nagel US PELVIS AND TRANSVAGon [...] LAURIE CRUZ Date: 2021-12-22 09:50 Normal [facility] US ABD RT UPPER QUADRANTon 0 12-10-[address] [facility] US PELVIS AND TRANSVAGon US PELVIS [...] LAURIE CRUZ Date: 2021-10-28 13:01 Normal [facility] VAGINITIS/VAGINOSIS DNA PROB Kwasi 10-21-2021 Sarah species Negative Normal Negative [facility] Comment on above: Performed By: #### I MMUN G #### [facility] [address] [place] [address] Dr. Li Nagel Gardnerella vaginalis Negative Normal Negative [facility] Comment on above: Performed By: #### I MMUN G #### [facility] [address] [place] [address] Dr. Li Nagel Trichomonas vaginalis Negative Normal Negative [facility] Comment on above: Performed By: #### I MMUN G #### [facility] [address] [place] [address] Dr. Li Nagel CBC AUTO DIFFon 10-20-2021 BASO # 0.0 103/ul Normal 0.0-0.1 [facility] Comment on above: Performed By: #### A LPHPHN #### [facility] [address] [place] [address] Dr. Li Nagel Basophils/100 WBC (Bld) 0.4 % Normal 0.2-2.0 [facility] Comment on above: Performed By: #### A LPHPHN #### [facility] [address] [place] [address] Dr. Li Nagel EO # 0.2 103/ul Normal 0.0-0.7 [facility] Comment on above: Performed By: #### A LPHPHN #### [facility] [address] [place] [address] Dr. Li Nagel Eosinophils/100 WBC (Bld) 2.6 % Normal 0.9-7.0 [facility] Comment on above: Performed By: #### A LPHPHN #### [facility] [address] [place] [address] Dr. Li Nagel Erythrocyte distribution width (RBC) [Ratio] 12.6 % Normal 11.0-15.0 [facility] Comment on above: Performed By: #### A LPHPHN #### [facility] [address] [place] [address] Dr. Li Nagel Hematocrit (Bld) [Volume fraction] 40.0 % Normal 36.0-48.0 [facility] Comment on above: Performed By: #### A LPHPHN #### [facility] [address] [place] [address] Dr. Li Nagel Hemoglobin (Bld) [Mass/Vol] 13.3 g/dL Normal 12.0-16.0 [facility] Comment on above: Performed By: #### A LPHPHN #### [facility] [address] [place] [address] Dr. Li Nagel IG # 0.06 10e3/ul Critically high 0.00-0.03 [facility] Comment on above: Performed By: #### A LPHPHN #### [facility] [address] [place] [address] Dr. Li Nagel IG % 0.9 % Critically high 0.0-0.5 [facility] Comment on above: Performed By: #### A LPHPHN #### [facility] [address] [place] [address] Dr. Li Nagel LYMPH # 2.2 103/ul Normal 1.2-3.8 [facility] Comment on above: Performed By: #### A LPHPHN #### [facility] [address] [place] [address] Dr. Li Nagel Lymphocytes/100 WBC (Bld) 31.0 % Normal 20.5-60.0 [facility] Comment on above: Performed By: #### A LPHPHN #### [facility] [address] [place] [address] Dr. Li Nagel MANUAL DIFF REQ NO Normal [facility] Comment on above: Performed By: #### A LPHPHN #### [facility] [address] [place] [address] Dr. Li Nagel MCH (RBC) [Entitic mass] 31.4 pg Normal 26.7-34.0 [facility] Comment on above: Performed By: #### A LPHPHN #### [facility] [address] [place] [address] Dr. Li Nagel MCHC (RBC) [Mass/Vol] 33.3 g/dL Normal 29.9-35.2 [facility] Comment on above: Performed By: #### A LPHPHN #### [facility] [address] [place] [address] Dr. Li Nagel MCV (RBC) [Entitic vol] 94.3 fL Normal 81.0-99.0 [facility] Comment on above: Performed By: #### A LPHPHN #### [facility] [address] [place] [address] Dr. Li Nagel MONO # 0.5 103/ul Normal 0.3-0.8 [facility] Comment on above: Performed By: #### A LPHPHN #### [facility] [address] [place] [address] Dr. Li Nagel Monocytes/100 WBC (Bld) 6.9 % Normal 1.7-12.0 [facility] Comment on above: Performed By: #### A LPHPHN #### [facility] [address] [place] [address] Dr. Li Nagel NEUT # 4.1 103/ul Normal 1.4-6.5 [facility] Comment on above: Performed By: #### A LPHPHN #### [facility] [address] [place] [address] Dr. Li Nagel Neutrophils/100 WBC (Bld) 58.2 % Normal 43.0-75.0 [facility] Comment on above: Performed By: #### A LPHPHN #### [facility] [address] [place] [address] Dr. Li Nagel Platelet mean volume (Bld) [Entitic vol] 11.0 fL Normal 9.5-13.5 [facility] Comment on above: Performed By: #### A LPHPHN #### [facility] [address] [address] [address] Li Nagel PLT 211 103/ul Normal 150-450 [facility] Comment on above: Performed By: #### A LPHPHN #### [facility] [address] [address] [address] Li Nagel RBC 4.24 106/ul Normal 4.20-5.40 [facility] Comment on above: Performed By: #### A LPHPHN #### [facility] [address] [address] [address] Li Nagel WBC 7.0 103/ul Normal 4.0-11.0 [facility] Comment on above: Performed By: #### A LPHPHN #### [facility] [address] [place] [address] ABD/PELV W CONon [...] DOLORES MOON Date: 2021-10-20 14:53 Normal [facility] OCC BLD IMMUNO SCREENon 09-23 OCCULT BLOOD Negative Normal NEGATIVE [facility] Comment on above: Performed By: #### O BSCRN #### [facility] [address] [place] [address] Dr. Li Nagel PROF 14(COMP METB)on 022 Albumin [Mass/Vol] 3.7 g/dL Normal 3.4-5.0 [facility] Comment on above: Performed By: #### A LPHPHN #### [facility] [address] [place] [address] Dr. Li Nagel Albumin/Globulin [Mass ratio] 1.2 {ratio} Normal [facility] Comment on above: Performed By: #### A LPHPHN #### [facility] [address] [place] [address] Dr. Li Nagel ALP [Catalytic activity/Vol] 86 U/L Normal 46-116 [facility] Comment on above: Performed By: #### A LPHPHN #### [facility] [address] [place] [address] Dr. Li Nagel ALT [Catalytic activity/Vol] 109 U/L Critically high 14-59 [facility] Comment on above: Performed By: #### A LPHPHN #### [facility] [address] [place] [address] Dr. Li Nagel Anion gap [Moles/Vol] 7.8 mmol/L Normal [facility] Comment on above: Performed By: #### A LPHPHN #### [facility] [address] [place] [address] Dr. Li Nagel AST [Catalytic activity/Vol] 57 U/L Critically high 15-37 [facility] Comment on above: Performed By: #### A LPHPHN #### [facility] [address] [place] [address] Dr. Li Nagel Bilirubin [Mass/Vol] 0.4 mg/dL Normal 0.2-1.0 [facility] Comment on above: Performed By: #### A LPHPHN #### [facility] [address] [place] [address] Dr. Li Nagel Calcium [Mass/Vol] 8.9 mg/dL Normal 8.5-10.1 [facility] Comment on above: Performed By: #### A LPHPHN #### [facility] [address] [place] [address] Dr. Li Nagel Chloride [Moles/Vol] 104 mmol/L Normal 98-107 [facility] Comment on above: Performed By: #### A LPHPHN #### [facility] [address] [place] [address] Dr. Li Nagel CO2 [Moles/Vol] 27.7 mmol/L Normal 21.0-32.0 [facility] Comment on above: Performed By: #### A LPHPHN #### [facility] [address] [place] [address] Dr. Li Nagel Creatinine [Mass/Vol] 0.78 mg/dL Normal 0.55-1.02 [facility] Comment on above: Performed By: #### A LPHPHN #### [facility] [address] [place] [address] Dr. Li Nagel EGFR-AF TRINIDADIAN >60 Normal >=60 [facility] Comment on above: Performed By: #### A LPHPHN #### [facility] [address] [place] [address] Dr. Li Nagel EGFR-NON AF TRINIDADIAN >60 Normal >=60 [facility] Comment on above: Performed By: #### A LPHPHN #### [facility] [address] [place] [address] Dr. Li Nagel Globulin (S) [Mass/Vol] 3.2 g/dL Normal [facility] Comment on above: Performed By: #### A LPHPHN #### [facility] [address] [place] [address] Dr. Li Nagel Glucose [Mass/Vol] 104 mg/dL Normal 74-106 [facility] Comment on above: Performed By: #### A LPHPHN #### [facility] [address] [place] [address] Dr. Li Nagel Potassium [Moles/Vol] 3.5 mmol/L Normal 3.5-5.1 [facility] Comment on above: Performed By: #### A LPHPHN #### [facility] [address] [place] [address] Dr. Li Nagel Protein [Mass/Vol] 6.9 g/dL Normal 6.4-8.2 [facility] Comment on above: Performed By: #### A LPHPHN #### [facility] [address] [place] [address] Dr. Li Nagel Sodium [Moles/Vol] 136 mmol/L Normal 136-145 [facility] Comment on above: Performed By: #### A LPHPHN #### [facility] [address] [place] [address] Dr. Li Nagel Urea nitrogen [Mass/Vol] 10.0 mg/dL Normal 7.0-18.0 [facility] Comment on above: Performed By: #### A LPHPHN #### [facility] [address] [place] [address] Dr. Li Nagel Urea nitrogen/Creatinine [Mass ratio] 12.8 mg/mg Normal [facility] Comment on above: Performed By: #### A LPHPHN #### [facility] [address] [place] [address] Dr. Li Nagel XR LSPINE MIN 4 [...] by: LAURIE CRUZ Date: 2021-09-06 15:05 Normal [facility] NM HEPATOBILIARY SCAN W EFon 08-27-2021 [...] by: JACKSON ADKINS Date: 2021-08-27 16:05 Normal [facility] Comprehensive Metabolic Pane yair 08-20-2021 Albumin [Mass/Vol] 5.0 g/dL Normal 3.6-5.1 [facility] Comment on above: Performed By: #### C MP #### [facility] [address], [place] [id number] Albumin/Globulin [Mass ratio] 2.1 {ratio} Normal 1.0-2.5 [facility] Comment on above: Performed By: #### C MP #### [facility] [address], [place] [id number] ALP [Catalytic activity/Vol] 110 U/L Normal 35-119 [facility] Comment on above: Performed By: #### C MP #### [facility] [address], [place] [id number] ALT [Catalytic activity/Vol] 71 U/L High 6-33 [facility] Comment on above: Result Comment: 03/24 Female reference range changed. Performed By: #### C MP #### [facility] [address], [place] [id number] Anion gap [Moles/Vol] 17 mmol/L Normal 12-20 [facility] Comment on above: Result Comment: Effe ctive 04/29/2019 reference range changed. Performed By: #### C MP #### [facility] [address], [place] [id number] AST [Catalytic activity/Vol] 69 U/L High 9-34 [facility] Comment on above: Performed By: #### C MP #### [facility] [address], [place] [id number] BUN/CREA 11 Ratio Normal 6-22 [facility] Comment on above: Performed By: #### C MP #### [facility] [address], [place] [id number] Calcium [Mass/Vol] 9.8 mg/dL Normal 8.6-10.2 [facility] Comment on above: Performed By: #### C MP #### [facility] [address], [place] [id number] Chloride [Moles/Vol] 99 mmol/L Normal 98-107 [facility] Comment on above: Performed By: #### C MP #### [facility] [address], [place] [id number] CO2 [Moles/Vol] 25 mmol/L Normal 20-31 [facility] Comment on above: Performed By: #### C MP #### [facility] [address], [place] [id number] Creatinine [Mass/Vol] 0.9 mg/dL Normal 0.6-1.4 [facility] Comment on above: Performed By: #### C MP #### [facility] [address], [place] [id number] eGFRAA 94 mL/min/1.73m2 Normal >60 [facility] Special[facility] Comment on above: Performed By: #### C MP #### [facility] [address], [place] [id number] eGFRNAA 78 mL/min/1.73m2 Normal >60 [facility] Comment on above: Performed By: #### C MP #### [facility] [address], [place] [id number] Globulin (S) [Mass/Vol] 2.4 g/dL Normal 1.9-3.7 [facility] Comment on above: Performed By: #### C MP #### [facility] [address], [place] [id number] Glucose [Mass/Vol] 100 mg/dL High 65-99 [facility] Comment on above: Result Comment: For FASTING Glucose --- ADA reference ranges: Normal 65-99 mg/dl Prediabetes 100-125 Diabetes >/= 126 Performed By: #### C MP #### [facility] [address], [place] [id number] Potassium [Moles/Vol] 3.8 mmol/L Normal 3.5-5.5 [facility] Comment on above: Performed By: #### C MP #### [facility] [address], [place] [id number] Protein [Mass/Vol] 7.4 g/dL Normal 6.1-8.1 [facility] Comment on above: Performed By: #### C MP #### [facility] [address], [place] [id number] Sodium [Moles/Vol] 137 mmol/L Normal 135-146 [facility] Comment on above: Performed By: #### C MP #### [facility] [address], [place] [id number] TBIL <0.3 Normal [facility] Special[facility] Comment on above: Performed By: #### C MP #### [facility] [address], [place] [id number] Urea nitrogen [Mass/Vol] 10 mg/dL Normal 7-25 [facility] Comment on above: Performed By: #### C MP #### [facility] [address], [place] [id number] US SINGLE QUAD RT UPPERon US SINGLE [...] JACKSON ADKINS Date: 2021-08-16 08:19 Normal [facility] Complete Blood Count with Au to Diffon 08-06-2021 Basophils (Bld) [#/Vol] 0.03 10*3/uL Normal 0.00-0.20 [facility] Comment on above: Performed By: #### C MP, CBCAD, LIPD #### [facility] [address], [place] [id number] Basophils/100 WBC (Bld) 0.4 % Normal [facility] Special[facility] Comment on above: Performed By: #### C MP, CBCAD, LIPD #### [facility] [address], [place] [id number] Eosinophils (Bld) [#/Vol] 0.11 10*3/uL Normal 0.02-0.50 [facility] Comment on above: Performed By: #### C MP, CBCAD, LIPD #### [facility] [address], [place] [id number] Eosinophils/100 WBC (Bld) 1.4 % Normal [facility] Special[facility] Comment on above: Performed By: #### C MP, CBCAD, LIPD #### [facility] [address], [place] [id number] Erythrocyte distribution width (RBC) [Ratio] 12.6 % Normal 11.0-15.0 [facility] Comment on above: Performed By: #### C MP, CBCAD, LIPD #### [facility] [address], [place] [id number] Hematocrit (Bld) [Volume fraction] 44.2 % Normal 35.0-47.0 [facility] Comment on above: Performed By: #### C MP, CBCAD, LIPD #### [facility] [address], [place] [id number] Hemoglobin (Bld) [Mass/Vol] 14.8 g/dL Normal 11.6-15.5 [facility] Comment on above: Performed By: #### C MP, CBCAD, LIPD #### [facility] [address], [place] [id number] Lymphocytes (Bld) [#/Vol] 2.2 10*3/uL Normal 0.9-3.9 [facility] Comment on above: Performed By: #### C MP, CBCAD, LIPD #### [facility] [address], [place] [id number] Lymphocytes/100 WBC (Bld) 28.1 % Normal [facility] Comment on above: Performed By: #### C MP, CBCAD, LIPD #### [facility] [address], [place] [id number] MCH (RBC) [Entitic mass] 31.2 pg Normal 27.0-33.0 [facility] Comment on above: Performed By: #### C MP, CBCAD, LIPD #### [facility] [address], [place] [id number] MCHC (RBC) [Mass/Vol] 33.5 g/dL Normal 32.0-36.0 [facility] Comment on above: Performed By: #### C MP, CBCAD, LIPD #### [facility] [address], [place] [id number] MCV (RBC) [Entitic vol] 93 fL Normal 80-100 [facility] Comment on above: Performed By: #### C MP, CBCAD, LIPD #### [facility] [address], [place] [id number] Monocytes (Bld) [#/Vol] 0.4 10*3/uL Normal 0.2-0.9 [facility] Special[facility] Comment on above: Performed By: #### C MP, CBCAD, LIPD #### [facility] [address], [place] [id number] Monocytes/100 WBC (Bld) 4.8 % Normal [facility] Comment on above: Performed By: #### C MP, CBCAD, LIPD #### [facility] [address], [place] [id number] Neutrophils (Bld) [#/Vol] 5.1 10*3/uL Normal 1.5-7.8 [facility] Specialist Comment on above: Performed By: #### C MP, CBCAD, LIPD #### [facility] [address], [place] [id number] Neutrophils/100 WBC (Bld) 64.3 % Normal [facility] Specialist Comment on above: Performed By: #### C MP, CBCAD, LIPD #### [facility] [address], [place] [id number] Platelet mean volume (Bld) [Entitic vol] 11.00 fL Normal 7.50-12.50 [facility] Comment on above: Performed By: #### C MP, CBCAD, LIPD #### [facility] [address], [place] [id number] Platelets (Bld) [#/Vol] 296 10*3/uL Normal 140-400 [facility] Specialist Comment on above: Performed By: #### C MP, CBCAD, LIPD #### [facility] [address], [place] [id number] RBC (Bld) [#/Vol] 4.74 10*6/uL Normal 3.90-5.20 [facility] Comment on above: Performed By: #### C MP, CBCAD, LIPD #### [facility] [address], [place] [id number] RDW-SD 43.4 fL Normal 37.0-50.0 [facility] Special[facility] Comment on above: Performed By: #### C MP, CBCAD, LIPD #### [facility] [address], [place] [id number] WBC (Bld) [#/Vol] 8.0 10*3/uL Normal 3.8-11.0 [facility] Comment on above: Performed By: #### C MP, CBCAD, LIPD #### [facility] [address] [place] [id number] Comprehensive Metabolic Pane yair 08-06-2021 Albumin [Mass/Vol] 5.2 g/dL High 3.6-5.1 [facility] Comment on above: Performed By: #### C MP, CBCAD, LIPD #### [facility] [address] [facility] [place] [id number] Albumin/Globulin [Mass ratio] 2.1 {ratio} Normal 1.0-2.5 [facility] Comment on above: Performed By: #### C MP, CBCAD, LIPD #### [facility] [address] [place] [id number] ALP [Catalytic activity/Vol] 115 U/L Normal 35-119 [facility] Specialist Comment on above: Performed By: #### C MP, CBCAD, LIPD #### [facility] [address] [facility] [place] [id number] ALT [Catalytic activity/Vol] 101 U/L High 6-33 [facility] Special[facility] Comment on above: Result Comment: 03/24 Female reference range changed. Performed By: #### C MP, CBCAD, LIPD #### [facility] [address], [place] [id number] Anion gap [Moles/Vol] 20 mmol/L Normal 12-20 [facility] Specialist Comment on above: Result Comment: Effe ctive 04/29/2019 reference range changed. Performed By: #### C MP, CBCAD, LIPD #### [facility] [address] [facility] [place] [id number] AST [Catalytic activity/Vol] 96 U/L High 9-34 [facility] Specialist Comment on above: Performed By: #### C MP, CBCAD, LIPD #### [facility] [address] [facility] [place] [id number] BUN/CREA 9 Ratio Normal 6-22 [facility] Specialist Comment on above: Performed By: #### C MP, CBCAD, LIPD #### [facility] [address] [facility] [place] [id number] Calcium [Mass/Vol] 9.9 mg/dL Normal 8.6-10.2 [facility] moran [place] [facility] Comment on above: Performed By: #### C MP, CBCAD, LIPD #### [facility] [address], [place] [id number] Chloride [Moles/Vol] 106 mmol/L Normal 98-107 [facility] Comment on above: Performed By: #### C MP, CBCAD, LIPD #### [facility] [address], [place] [id number] CO2 [Moles/Vol] 21 mmol/L Normal 20-31 [facility] Specialist Comment on above: Performed By: #### C MP, CBCAD, LIPD #### [facility] [address], [place] [id number] Creatinine [Mass/Vol] 0.9 mg/dL Normal 0.6-1.4 [facility] Specialist Comment on above: Performed By: #### C MP, CBCAD, LIPD #### [facility] [address], [place] [id number] eGFRAA 90 mL/min/1.73m2 Normal >60 [facility] Panel [facility] Comment on above: Performed By: #### C MP, CBCAD, LIPD #### [facility] [address], [place] [id number] eGFRNAA 74 mL/min/1.73m2 Normal >60 [facility] Specialist Comment on above: Performed By: #### C MP, CBCAD, LIPD #### [facility] [address], [place] [id number] Globulin (S) [Mass/Vol] 2.5 g/dL Normal 1.9-3.7 [facility] Panel [facility] Comment on above: Performed By: #### C MP, CBCAD, LIPD #### [facility] [address], [place] [id number] Glucose [Mass/Vol] 127 mg/dL High 65-99 [facility]asi rn [place] [facility] [employer] Comment on above: Result Comment: For FASTING Glucose --- ADA reference ranges: Normal 65-99 mg/dl Prediabetes 100-125 Diabetes >/= 126 Performed By: #### C MP, CBCAD, LIPD #### [facility] [address], [place] [id number] Potassium [Moles/Vol] 4.2 mmol/L Normal 3.5-5.5 [facility] Panel Wirer Comment on above: Performed By: #### C NORBERTO, CBCAD, LIPD #### [facility] [address], [place] [id number] Protein [Mass/Vol] 7.7 g/dL Normal 6.1-8.1 [facility] Panel [facility] Comment on above: Performed By: #### C MP, CBCAD, LIPD #### [facility] [address], [place] [id number] Sodium [Moles/Vol] 143 mmol/L Normal 135-146 [facility] Panel Wirer Comment on above: Performed By: #### C NORBERTO, CBCAD, LIPD #### [facility] [address], [place] [id number] TBIL <0.3 Normal [facility] Panel [facility] Comment on above: Performed By: #### C NORBERTO, CBCAD, LIPD #### [facility] [address], [place] [id number] Urea nitrogen [Mass/Vol] 8 mg/dL Normal 7-25 [facility] Panel [facility] Comment on above: Performed By: #### C NORBERTO, CBCAD, LIPD #### [facility] [address], [place] [id number] Hemoglobin A1Con 08-06-2021 EAG 99.67 Normal [facility] Comment on above: Performed By: #### A 1C #### [facility] [address], [place] [id number] HbA1c (Bld) [Mass fraction] 5.1 % Normal 4.0-6.0 [facility] Panel [facility] Comment on above: Performed By: #### A 1C #### [facility] [address], [place] [id number] Lipid Panelon 08-06-2021 Cholesterol [Mass/Vol] 190 mg/dL Normal 125-200 [facility] Panel [facility] Comment on above: Result Comment: Low risk < 200mg/dL Borderline risk 201-239 mg/dl High risk > or equal to 240 Performed By: #### C MP, CBCAD, LIPD #### [facility] [address], [place] [id number] Cholesterol in HDL [Mass/Vol] 64 mg/dL Normal >40 [facility] Panel Wire[facility] Comment on above: Result Comment: High Cardiovascular Risk HDL <40 mg/dL Low Cardiovascular Risk HDL > or equal to 60 mg/dl Performed By: #### C NORBERTO, CBCAD, LIPD #### [facility] [address], [place] [id number] Cholesterol in LDL [Mass/Vol] 107 mg/dL Normal [facility] Panel [facility] Comment on above: Result Comment: LDL ATP III CLASSIFICATION LDL less than 100 mg/dl Optimal LDL 100-129 mg/dl Near or above optimal LDL 130-159 Borderline high LDL 160-189 High LDL greater than 189 mg/dl Very High Performed By: #### C NORBERTO, CBCAD, LIPD #### [facility] [address], [place] [id number] Cholesterol in VLDL [Mass/Vol] 19 mg/dL Normal [facility] Panel Wire[facility] Comment on above: Performed By: #### C NORBERTO, CBCAD, LIPD #### [facility] [address], [place] [id number] Cholesterol.total/Ch olesterol in HDL [Mass ratio] 3 {ratio} Normal [facility] Panel [facility] Comment on above: Performed By: #### C NORBERTO, CBCAD, LIPD #### [facility] [address], [place] [id number] Triglyceride [Mass/Vol] 95 mg/dL Normal 30-150 [facility] Comment on above: Result Comment: TRIG ATPIII CLASSIFICATIONS TRIG less than 150 mg/dl Normal TRIG 150-199 mg/dl Borderline High TRIG 200-500 mg/dl High TRIG greather than 500 mg/dl Very High Performed By: #### C MP, CBCAD, LIPD #### [facility] [address], [place] [id number] Q - CULTURE,URINE,ROUTINEon 06-04-2021 CULTURE, URINE, ROUTINE SEE NOTE Normal [facility] Panel [facility]r Comment on above: Order Comment: [facility] performed at: QPT, [facility], [address], [address], [place], [address], Conservation Biology Professor: Tim Dotson MD [facility] Collection Date/Time: [id number] [facility] Results Received Date/Time: [id number] [facility] Reported Date/Time: [id number] Result Comment: CULT URE, URINE, ROUTINE Micro Number: [id number] Test Status: Final Specimen Source: Not given Specimen Quality: Adequate Result: Mixed genital marie isolated. These superficial bacteria are not indicative of a urinary tract infection. No further organism identification is warranted on this specimen. If clinically indicated, recollect clean-catch, mid-stream urine and transfer immediately to Urine Culture Transport Tube. Performed By: #### 6 [id number] #### [facility] [address] [place] [address] MRI LUMBAR SPINE WO CONTRAST on 11-06-2018 [...] Time Vital Sign Value Performing Clinician Facility 12-28-2023 15:17-0400 Blood Pressure Location BHAVESH DEJESUS [facility] 12-28-2023 15:17-0400 Diastolic blood pressure 100 mm[Hg] BHAVESH DEJESUS [facility] 12-28-2023 15:17-0400 Heart rate 101 /min BHAVESH DEJESUS [facility] 12-28-2023 15:17-0400 Respiratory rate 18 /min BHAVESH DEJESUS [facility] 12-28-2023 15:17-0400 Systolic blood pressure 146 mm[Hg] BHAVESH DEJESUS [facility] 12-19-2023 15:01-0400 Body height 157.5 cm Solo Mora MD Work Phone: [facility] 12-19-2023 15:01-0400 Body mass index (BMI) [Ratio] 34.39 kg/m2 Solo Mora MD Work Phone: [facility] 12-19-2023 15:01-0400 Body weight 85.28 kg Solo Mora MD Work Phone: [facility] 12-19-2023 15:01-0400 Diastolic blood pressure 91 mm[Hg] Solo Mora MD Work Phone: [facility] 12-19-2023 15:01-0400 Heart rate 94 /min Solo Mora MD Work Phone: [facility] 12-19-2023 15:01-0400 Systolic blood pressure 127 mm[Hg] Solo Mora MD Work Phone: [facility] 11-02-2022 13:10-0400 Body height 157.5 cm Samuel Freeman MD Work Phone: [facility] 11-02-2022 13:10-0400 Body weight 71 kg Samuel Freeman MD Work Phone: [facility] 11-02-2022 13:10-0400 Diastolic blood pressure 97 mm[Hg] Samuel Freeman MD Work Phone: [facility] 11-02-2022 13:10-0400 Heart rate 100 /min Samuel Freeman MD Work Phone: [facility] 11-02-2022 13:10-0400 Systolic blood pressure 141 mm[Hg] Samuel Freeman MD Work Phone: [facility] 05-27-2022 11:29-0500 Body weight 85.73 kg Carol Winn MD Work Phone: [facility] 05-27-2022 11:29-0500 Diastolic blood pressure 92 mm[Hg] Carol Winn MD Work Phone: [facility] 05-27-2022 11:29-0500 Heart rate 102 /min Carol Winn MD Work Phone: [facility] 05-27-2022 11:29-0500 Systolic blood pressure 145 mm[Hg] Carol Winn MD Work Phone: [facility] 05-03-2022 15:30-0500 Body height 158.75 cm Imad Asaad Other [employer] Other 05-03-2022 15:30-0500 Body mass index (BMI) [Ratio] 34.55 kg/m2 Imad Asaad Other [employer] Other 05-03-2022 15:30-0500 Body weight 87.09 kg Imad Asaad Other [employer] Other 05-03-2022 15:30-0500 Diastolic blood pressure 91 mm[Hg] Imad Asaad Other [employer] Other 05-03-2022 15:30-0500 Systolic blood pressure 130 mm[Hg] Imad Asaad Other [employer] Other 05-03-2022 14:47-0500 Body weight 0 kg MD Giovani Hagen Work Phone: [facility] Encounters Encounter Date Encounter Type Care Provider Facility Start: 12-30-2024 ambulatory Madhuri MISHRA Facility:[facility] Start: 12-28-2023 End: 12-28-2023 Patient encounter procedure BHAVESH DEJESUS [facility] Start: 12-28-2023 End: 12-29-2023 ambulatory BHAVESH Patterson OLEG Facility:[facility] Comment on above: [employer] Start: 12-26-2023 End: 12-26-2023 ambulatory RUGEN M HIEU Not Available Start: 12-19-2023 End: 12-21-2023 Orders Only Solo Mora MD Work Phone: Cardiology Comment on above: Syncope and collapse (Primary Dx) Event (ZIO PATCH) Syncope, unspecified syncope type (Primary Dx) Start: 12-04-2023 End: 12-04-2023 ambulatory RUGEN M [...] 03-24-2023 Evaluation and management of inpatient MARY ANGEL [facility] Start: 03-20-2023 ambulatory Carol Winn MD [...] Start: 10-26-2022 End: 10-26-2022 ambulatory Imad Asaad Facility:[facility] Start: 10-26-2022 End: 10-26-2022 ambulatory MD Giovani Hagen Work Phone: [facility] Work Phone: Start: 10-26-2022 End: 10-26-2022 Patient encounter procedure MD Giovani Hagen Work Phone: [facility]-Ultrasound [place] Work Phone: Start: 10-18-2022 ambulatory Maria Dolores Corey DO Work Phone: Gastroenterology Start: 10-18-2022 Telephone encounter Maria Dolores Corey DO Work Phone: Gastroenterology Comment on above: Medication Preauthorization ([employer]) Results Start: 10-17-2022 End: 10-18-2022 ambulatory MARIA DOLORES COREY Facility:[facility] Start: 10-17-2022 End: 10-17-2022 Patient encounter procedure [facility] Work Phone: Gastroenterology Comment on above: Gastroparesis (Primary Dx) Start: 09-12-2022 ambulatory CAROL WINN Facility[facility] Start: 09-12-2022 End: 09-12-2022 Subsequent hospital visit by physician [facility] Work Phone: [facility] Radiology Molecular Comment on above: Nausea [R11.0] Start: 08-24-2022 Telephone encounter Nurse [facility] Work Phone: Gastroenterology Comment on above: Appointment Start: 07-08-2022 End: 07-08-[address] MADHURI MISHRA . Facility:[facility] Start: 07-06-2022 End: 07-07-[address] MADHURI MISHRA . Facility:[facility] Start: 07-05-2022 End: 07-05-2022 Patient encounter procedure Madhuri MISHRA [facility] Start: 07-04-2022 Orders Only Carol Winn MD Work Phone: Gastroenterology Start: 06-29-2022 End: 06-30-[address] MADHURI MISHRA . Facility:[facility] Start: 06-29-2022 End: 06-29-2022 Lab Drop off Madhuri MISHRA [facility] Start: 06-23-2022 ambulatory Carol Winn MD Work Phone: Gastroenterology Comment on above: EGD instructions Start: 06-23-2022 E-mail encounter from caregiver Carol Winn MD Work Phone: [facility] Start: 06-16-2022 ambulatory [facility] Provider Gastroenterology Comment on above: Question regarding US ABD RT UPPER QUADR ANT Start: 06-15-2022 ambulatory CAROL WINN Facility:[facility] Start: 06-15-2022 End: 06-15-2022 Subsequent hospital visit by physician [facility] Work Phone: [facility] Radiology Ultrasound Comment on above: Liver lesion [K76.9] Start: 06-14-2022 Orders Only Carol Winn MD Work Phone: Ambulatory Surgery Comment on above: Liver lesion (Primary Dx) Results Start: 06-10-2022 ambulatory Diamond Pycraft RT(R) Radiology Ct Scan Comment on above: Radiology CT Start: 06-10-2022 Patient encounter procedure Diamond Pycraft RT(R) [facility] Start: 06-10-2022 End: 06-10-2022 Subsequent hospital visit by physician Ct Prep [facility] Radiology Ct Scan Comment on above: Bilious vomiting with nausea [R11.14] Start: 05-27-2022 ambulatory CAROL WINN Facility:[facility] Start: 05-27-2022 End: 05-27-2022 Subsequent hospital visit by physician X[facility] Work Phone: [facility] Radiology General Comment on above: SOB (shortness of breath) [R06.02] Start: 05-27-2022 End: 05-27-2022 Patient encounter procedure Carol Winn MD Work Phone: Gastroenterology Comment on above: Fatty liver (Primary Dx); Bilious vomiting with nausea; Right sided abdominal pain; Nausea; History of diverticulitis; SOB (shortness of breath) Start: 05-13-2022 End: 05-13-2022 ambulatory Imad Asaad Facility:[facility] Start: 05-13-2022 End: 05-13-2022 ambulatory MD Giovani Hagen Work Phone: [facility] Work Phone: Start: 05-13-2022 End: 05-13-2022 Patient encounter procedure MD Giovani Hagen Work Phone: [facility]-Digestive Health Work Phone: Start: 05-03-2022 End: 05-04-2022 ambulatory IMAD ASAAD [facility] [employer] Other Start: 05-03-2022 Office consultation new/estab patient 60 min Imad Asaad [facility] Gastroenterology Start: 04-20-2022 End: 04-20-[address] AURORA IRBY . Facility:[facility] Start: 04-06-2022 End: 04-07-[address] GIOVANI HAGEN Facility:[facility] Start: 12-21-2021 End: 12-22-[address] AURORA IRBY . Facility:[facility] Start: 12-10-2021 End: 12-10-2021 Subsequent hospital visit by physician Us [facility] Ultrasound Comment on above: Elevated LFTs [R79.89] [...] Start: 11-06-2018 End: 11-09-2018 Patient encounter procedure [facility] Procedures Date Procedure Procedure Detail Performing Clinician [...] 50% relief to present section Madhuri SERRANO Cholecystectomy BHAVESH FLORES FELIPA Hysterectomy Madhuri MISHRA Plan of Treatment Date Care Activity Detail Author Start: 02-13-2024 End: 02-13-2024 Patient encounter procedure Cardiology Comment on above: Dx: Syncope, unspecified syncope type [R 55] Start: 02-13-2024 End: 02-13-2024 ambulatory 02/13/2024 2:00 PM EDT Results Only Cardiology [address] [place] [address] Dx: Syncope, unspecified syncope type [R55] Cardiology Comment on above: Dx: Syncope, unspecified syncope type [R 55] Start: 12-24-2023 Covid-19 Vaccine ( season) Covid-19 Vaccine ( season) [facility] Start: 12-24-2023 Influenza vaccination Influenza Vaccine (#1) [facility] Start: 12-19-2023 End: 12-19-2023 ambulatory 12/19/2023 2:15 PM EDT Results Only Cardiology [address] [id number] Exertional Syncope. Referring: Dr. Shilo Dillon Cardiology Comment on above: Exertional Syncope. Referring: Dr. Shilo Dillon Start: 12-19-2023 End: 12-19-2023 Patient encounter procedure Cardiology Comment on above: Exertional Syncope. Referring: Dr. Shilo Dillon Start: 04-24-2023 Behavioral Health Screening Behavioral Health Screening [facility] Start: 12-23-2022 Covid-19 Vaccine () Covid-19 Vaccine () [facility] Start: 12-23-2022 Influenza vaccination [facility] Start: 05-13-2022 [facility] Start: 04-24-2022 DEPRESSION ASSESSMENT DEPRESSION ASSESSMENT [facility] Start: 12-28-2021 COVID-19 VACCINE (4 - Booster for Pfizer series) COVID-19 VACCINE (4 - Booster for Pfizer series) [facility] Start: 12-28-2021 COVID-19 VACCINE (4 - Pfizer series) COVID-19 VACCINE (4 - Pfizer series) [facility] Start: 12-23-2021 Influenza vaccination INFLUENZA (#1) [facility] Start: 02-06-2020 Urine microalbumin profile DTaP,Tdap,Td Vaccine (6 - Td or Tdap) [facility] Start: 2018 HPV TESTING HPV TESTING [facility] Start: 2009 PAP TESTING PAP TESTING [facility] Start: 2009 Screening for malignant neoplasm of cervix Cervical Cancer Screening [facility] Start: 09-29-2007 Urine microalbumin profile DTAP,TDAP,TD (1 - Tdap) [facility] Start: 11-30-2006 HPV Vaccine (2 - 3-dose series) HPV Vaccine (2 - 3-dose series) [facility] Start: 2006 Anxiety Screening Anxiety Screening [facility] Start: 2006 Depression Screening Depression Screening [facility] Start: 2006 HEPATITIS C SCREENING HEPATITIS C SCREENING [facility] Start: 2006 Hepatitis C screening Hepatitis C Screening [facility] Start: 2006 HIV SCREENING HIV SCREENING [facility] Start: 2006 HIV screening HIV Screening [facility] Start: 1988 HEPATITIS B (1 of 3 - 3-dose series) HEPATITIS B (1 of 3 - 3-dose series) [facility] Actin smooth muscle IgG Ab [Units/volume] in Serum [facility] Alpha 1 antitrypsin [Mass/volume] in Serum or Plasma [facility] Alpha 1 antitrypsin phenotyping [Identifier] in Serum or Plasma by Immunofixation [facility] Ceruloplasmin [Mass/ volume] in Serum or Plasma [facility] End: 06-26-2023 Ct abdomen & pelvis w/o contrast material CT ABD/PEL WO IVCON Radiology Routine Bilious vomiting with nausea Right sided abdominal pain Nausea 1 Occurrences starting 05/27/2022 until 06/26/2023 [facility] Work Phone: Comment on above: 1 Occurrences starting 05/27/2022 until 06/26/2023 End: 11-01-2024 ECG COMPLETE ECG COMPLETE ECG Routine Gastroparesis 1 Occurrences starting 11/02/2023 until 11/01/2024 [facility] Work Phone: Comment on above: 1 Occurrences starting 11/02/2023 until 11/01/2024 End: 12-18-2024 ECG COMPLETE ECG COMPLETE ECG Routine Syncope and collapse 1 Occurrences starting 12/19/2023 until 12/18/2024 [facility] Work Phone: Comment on above: 1 Occurrences starting 12/19/2023 until 12/18/2024 End: 05-27-2023 EGD DIAGNOSTIC EGD DIAGNOSTIC Endoscopy Routine Bilious vomiting with nausea Right sided abdominal pain 1 Occurrences starting 05/27/2022 until 05/27/2023 [facility] Work Phone: Comment on above: 1 Occurrences starting 05/27/2022 until 05/27/2023 Electrogastrography dx transcutaneous EGG (ELECTROGASTROGRAPHY) Procedures Routine Gastroparesis Ordered: 09/14/2022 [facility] Work Phone: Comment on above: Ordered: 09/14/2022 Hepatitis A virus Ab [Presence] in Serum by Immunoassay [facility] HFE gene mutations f ound [Identifier] in Blood or Tissue by Molecular genetics method Nominal [facility] Homogenous nuclear A b pattern [Titer] in Serum [facility] IgG [Mass/volume] in Serum or Plasma [facility] Lipoprotein a [Moles /volume] in Serum or Plasma [facility] Mitochondria M2 IgG Ab [Units/volume] in Serum [facility] Nuclear Ab [Titer] in Serum [facility] OUTSIDE VENDOR CARDI AC OUTPATIENT EXTENDED RHYTHM RECORDING (WITHOUT TELEMETRY) OUTSIDE VENDOR CARDIAC OUTPATIENT EXTENDED RHYTHM RECORDING (WITHOUT TELEMETRY) Holter Routine Syncope, unspecified syncope type Ordered: 12/19/[address] [facility] Comment on above: Ordered: 12/19/2023 End: 12-18-2024 STRESS ECHO TREADMILL STRESS ECHO TREADMILL Cardiology Routine Syncope, unspecified syncope type 1 Occurrences starting 12/19/2023 until 12/18/2024 [facility] Work Phone: Comment on above: 1 Occurrences starting 12/19/2023 until 12/18/2024 End: 07-14-2023 Us abdominal real time w/image limited US ABD RT UPPER QUADRANT Radiology Routine Liver lesion 1 Occurrences starting 06/14/2022 until 07/14/2023 [facility] Work Phone: Comment on above: 1 Occurrences starting 06/14/2022 until 07/14/[address] [facility] Immunizations Immunization Date Immunization Notes Care Provider Bernadette vickers 11-02-2021 SARS-CoV-2 mRNA ([id number] ose) vaccine Madhuri MISHRA [facility] [...] B vaccine, pediatric or pediatric/adolescent dosage Madhuri [employer] [facility] 11-02-2006 hepatitis B vaccine, pediatric or pediatric/adolescent dosage Madhuri [employer] [facility] 11-02-2006 HPV, unspecified formulation Madhuri MISHRA [facility] 11-02-2006 meningococcal ACWY vaccine, unspecified formulation Madhuri [employer] [facility] 02-20-1998 hepatitis B vaccine, pediatric or pediatric/adolescent dosage Madhuri [employer] [facility] 12-07-1992 measles, mumps and rubella virus vaccine Madhuri MISHRA [facility] 06-09-1992 measles, mumps and rubella virus vaccine Madhuri MISHRA [facility] 10-31-1990 varicella virus vaccine Madhuri MISHRA [facility] NEGATED: Highlighted row has not occurred!05-01-2019 influenza virus vaccine, live, attenuated, for intranasal use Madhuri MISHRA [facility] NEGATED: Highlighted row has not occurred!04-03-2019 influenza virus vaccine, live, attenuated, for intranasal use Madhuri MISHRA [facility] Payers Date Payer Category Payer Self-pay [id number] 2020 Unknown [id number] 1988 Unknown [id number] 2.16.840.1.282031.3.579.2.182 1988 Unknown [id number] 2.16.840.1.683127.3.579.2.593 1988 Unknown [id number] 2.16.840.1.259335.3.579.2.593 1988 Unknown [id number] 2.16.840.1.804321.3.579.2.593 1988 Unknown [id number] 2.16.840.1.014170.3.579.2.593 1988 Unknown [id number] 2.16.840.1.012330.3.579.2.593 1988 Unknown [id number] 2.16.840.1.633185.3.579.2.593 1988 Unknown [id number] 2.16.840.1.804206.3.579.2.593 1988 Unknown [id number] 2.16.840.1.519548.3.579.2.593 1988 Unknown [id number] 2.16.840.1.515076.3.579.2.593 1988 Unknown [id number] 2.16.840.1.144116.3.579.2.593 1988 Unknown [id number] 2.16.840.1.381029.3.579.2.593 1988 Unknown [id number] 2.16.840.1.782016.3.579.2.593 1988 Unknown [id number] 2.16.840.1.128564.3.579.2.593 1988 Unknown [id number] 2.16.840.1.049430.3.579.2.177 1988 Unknown [id number] 2.16840.1.370155.3.579.2.1259 1988 Unknown [id number] 2.16840.1.785215.3.579.2.1259 1988 Unknown [id number] 2.16840.1.075619.3.579.2.1259 1988 Unknown [id number] 2.16840.1.853018.3.579.2.1259 1988 Unknown [id number] 2.16840.1.404264.3.579.2.1259 1988 Unknown [id number] 1990 Unknown [id number] 1990 Unknown [id number] 1990 Unknown [id number] 1959 Unknown [id number] Unknown 100 [facility] [id number] Unknown [id number] Unknown [id number] Social History Date Type Detail Facility Tobacco smoking stat us UTIS Unknown if ever smoked [facility] Work Phone: Start: 1990 Sex Assigned At Female F [facility] Start: 03-28-2019 End: 05-27-2022 Tobacco smoking status NHIS Never smoked tobacco [facility] Start: 03-28-2019 End: 05-27-2022 Tobacco use and exposure Smokeless tobacco non-user [facility] Start: 05-27-2022 End: 12-19-2023 Alcohol intake Current drinker of alcohol (finding) [facility] Start: 03-28-2019 Alcohol Comment socially [facility] Start: 1990 Sex Assigned At Not on file [facility] Start: 10-17-2022 End: 11-02-2022 Sex Assigned At [facility] Start: 06-29-2022 End: 12-28-2023 Tobacco smoking status Ex-smoker (finding) [facility] Tobacco smoking status Never [facility] Start: 10-17-2022 End: 11-02-2022 History of Social function [facility] Start: 06-08-2021 Gender identity Identifies as female gender (finding) [facility] Start: 11-16-2021 End: 11-26-2021 Exposure to SARS-CoV-2 (event) Not sure [facility] Goals Date Patient Goal Desired Activity /State Personal health goal Functional Status Date Assessment Result Facility 12-28-2023 Functional Status N/A [facility] 06-30-2022 Functional Status N/A [facility] Clinical Notes 05-03-2022 to 12-28-2023 Gege Lema Tech - 12/19/2023 3:44 PM EDTPatient Solo Porras MD - 12/19/2023 2:45 PM EDTTelephone Encounter - Criss Mccrary - 11/02/2023 10:39 AM EDT Note Date & Type Note Facility 12-28-2023 Hospital Discharge instructions Patient Education 12/28/2023 15:59:41 Kidney Stones, [id number] Kidney Stones Kidney stones are rock-like masses that form inside of the kidneys. Kidneys are organs that make pee (urine). A kidney stone may move into other parts of the urinary tract, including: The tubes that connect the kidneys to the bladder (ureters). The bladder. The tube that carries urine out of the body (urethra). Kidney stones can cause very bad pain and can block the flow of pee. The stone usually leaves your body through your pee. A doctor may need to take out the stone. What are the causes? Kidney stones may be caused by: Too much calcium in the body. This may be caused by too much parathyroid hormone in the blood. Uric acid crystals in the bladder. The body makes uric acid when you eat certain foods. Narrowing of one or both of the ureters. A kidney blockage that you were born with. Past surgery on the kidney or the ureters. What increases the risk? You are more likely to develop this condition if: You have had a kidney stone in the past. Other people in your family have had kidney stones. You do not drink enough water. You eat a diet that is high in protein, salt (sodium), or sugar. You are very overweight (obese). What are the signs or symptoms? Symptoms of a kidney stone may include: Pain in the side of the belly, right below the ribs. Pain usually spreads to the groin. Needing to pee often or right away. Pain when peeing. Blood in your pee. Feeling like you may vomit (nauseous). Vomiting. Fever and chills. How is this treated? Treatment depends on the size, location, and makeup of the kidney stones. The stones will often pass out of the body when you pee. You may need to: Drink more fluid to help pass the stone. ?In some cases, you may be given fluids through an IV tube at the hospital. Take medicine for pain. Change your diet to help keep kidney stones from coming back. Sometimes, you may need: A procedure to break up kidney stones using a beam of light (laser) or shock waves. Surgery to remove the kidney stones. Follow these instructions at home: Medicines Take ncua-tjq-nbvjuia and prescription medicines only as told by your doctor. Ask your doctor if the medicine prescribed to you requires you to avoid driving or using machinery. Eating and drinking Drink enough fluid to keep your pee pale yellow. ?You may be told to drink at least 8 10 glasses of water each day. This will help you pass the stone. If told by your doctor, change your diet. You may be told to: ?Limit how much salt you eat. ?Eat more fruits and vegetables. ?Limit how much meat, poultry, fish, and eggs you eat. Follow instructions from your doctor about what you may eat and drink. General instructions Collect pee samples as told by your doctor. You may need to collect a pee sample: ?24 hours after a stone comes out. ?8 12 weeks after a stone comes out, and every 6 12 months after that. Strain your pee every time you pee. Use the strainer that your doctor recommends. Do not throw out the stone. Keep it so that it can be tested by your doctor. Keep all follow-up visits. You may need X-rays and ultrasounds to make sure the stone has come out. How is this prevented? To prevent another kidney stone: Drink enough fluid to keep your pee pale yellow. This is the best way to prevent kidney stones. Eat healthy foods. Avoid certain foods as told by your doctor. You may be told to eat less protein. Stay at a healthy weight. Where to find more information National Kidney Foundation (NKF): kidney.org Urology Care Foundation (UCF): urologyhealth.org Contact a doctor if: You have pain that gets worse or does not get better with medicine. Get help right away if: You have a fever or chills. You get very bad pain. You get new pain in your belly. You faint. You cannot pee. This information is not intended to replace advice given to you by your health care provider. Make sure you discuss any questions you have with your health care provider. Document Revised: 12/02/2022 Document Reviewed: 12/02/2022 [email or web address] Patient Education 2023 [employer] Follow Up Care 11/07/2022 15:52:12 With:OLEG OSEI, BHAVESH Patterson, URL Address: When:1 year [facility] Bartolome 12-28-2023 Note Patient Education Urology Kidney Stones Kidney stones are rock-like masses that form inside of the kidneys. Kidneys are organs that make pee (urine). A kidney stone may move into other parts of the urinary tract, including: ? The tubes that connect the kidneys to the bladder (ureters). ? The bladder. ? The tube that carries urine out of the body (urethra). Kidney stones can cause very bad pain and can block the flow of pee. The stone usually leaves your body through your pee. A doctor may need to take out the stone. What are the causes? Kidney stones may be caused by: ? Too much calcium in the body. This may be caused by too much parathyroid hormone in the blood. ? Uric acid crystals in the bladder. The body makes uric acid when you eat certain foods. ? Narrowing of one or both of the ureters. ? A kidney blockage that you were born with. ? Past surgery on the kidney or the ureters. What increases the risk? You are more likely to develop this condition if: ? You have had a kidney stone in the past. ? Other people in your family have had kidney stones. ? You do not drink enough water. ? You eat a diet that is high in protein, salt (sodium), or sugar. ? You are very overweight (obese). What are the signs or symptoms? Symptoms of a kidney stone may include: ? Pain in the side of the belly, right below the ribs. Pain usually spreads to the groin. ? Needing to pee often or right away. ? Pain when peeing. ? Blood in your pee. ? Feeling like you may vomit (nauseous). ? Vomiting. ? Fever and chills. How is this treated? Treatment depends on the size, location, and makeup of the kidney stones. The stones will often pass out of the body when you pee. You may need to: ? Drink more fluid to help pass the stone. ? In some cases, you may be given fluids through an IV tube at the hospital. ? Take medicine for pain. ? Change your diet to help keep kidney stones from coming back. Sometimes, you may need: ? A procedure to break up kidney stones using a beam of light (laser) or shock waves. ? Surgery to remove the kidney stones. Follow these instructions at home: Medicines ? Take fdrx-udv-egkhwmg and prescription medicines only as told by your doctor. ? Ask your doctor if the medicine prescribed to you requires you to avoid driving or using machinery. Eating and drinking ? Drink enough fluid to keep your pee pale yellow. ? You may be told to drink at least 8?10 glasses of water each day. This will help you pass the stone. ? If told by your doctor, change your diet. You may be told to: ? Limit how much salt you eat. ? Eat more fruits and vegetables. ? Limit how much meat, poultry, fish, and eggs you eat. ? Follow instructions from your doctor about what you may eat and drink. General instructions ? Collect pee samples as told by your doctor. You may need to collect a pee sample: ? 24 hours after a stone comes out. ? 8?12 weeks after a stone comes out, and every 6?12 months after that. ? Strain your pee every time you pee. Use the strainer that your doctor recommends. ? Do not throw out the stone. Keep it so that it can be tested by your doctor. ? Keep all follow-up visits. You may need X-rays and ultrasounds to make sure the stone has come out. How is this prevented? To prevent another kidney stone: ? Drink enough fluid to keep your pee pale yellow. This is the best way to prevent kidney stones. ? Eat healthy foods. ? Avoid certain foods as told by your doctor. You may be told to eat less protein. ? Stay at a healthy weight. Where to find more information ? National Kidney Foundation (NKF): kidney.org ? Urology Care Foundation (UCF): urologyhealth.org Contact a doctor if: ? You have pain that gets worse or does not get better with medicine. Get help right away if: ? You have a fever or chills. ? You get very bad pain. ? You get new pain in your belly. ? You faint. ? You cannot pee. This information is not intended to replace advice given to you by your health care provider. Make sure you discuss any questions you have with your health care provider. Document Revised: 12/02/2022 Document Reviewed: 12/02/2022 [email or web address] Patient Education ? 2023 [facility] 12-19-2023 Note Education (CARDMN) BELGICA HARPER ([id number]) 1990 F Date Time Provider Department 12/19/23 3:45 PM ARRHYTHMIA MONITORING LAB CARDMN Reason for Visit: Event [921] Cmt: EULALIAO PATCH Primary Visit Diagnosis:Syncope, unspecified syncope type [R55] During your visit today, we recorded the following information about you: Allergies As of Date: 12/19/2023 Noted Allergy Reaction IV CONTRAST (IODINE) 04/11/2019 7 - Swelling 9 - Itching Comments: Omnipaque 300: Patient experienced itching on her neck and left side of her face. Also, pt complained of tongue feeling itchy and feels like something is stuck in her throat . Patient received diphenhydramine (Benadryl) OMNIPAQUE (IOHEXOL) 04/12/2019 9 - Itching Date Reviewed: 12/19/2023 Reviewed by: Analia Umanzor, RN - Fully Assessed Prescriptions as of 12/19/2023 - amphetamine-dextroamphetamine XR (ADDERALL XR) 30 mg capsule Take 30 mg by mouth once daily. - ALPRAZolam (XANAX) 0.5 mg tablet Take 0.25 mg by mouth two times a day. - cariprazine (VRAYLAR) 4.5 mg capsule Take 4.5 mg by mouth once daily. Facility-Administered Medications as of 12/19/2023 - lidocaine (PF) 10 mg/mL (1 %) 1-2 mg injection (XYLOCAINE) - NaCl 0.9% iv infusion Encounter Status:Closed by GEGE LEMA on 12/19/23 [facility] 12-19-2023 Note HNO ID: [id number] Author: GEGE LEMA Tech Service: ? Author Type: Technologist Type: Progress Notes Filed: 12/19/2023 15:45 Note Text: EVENT MONITOR DISPOSABLE PATCH INSTRUCTIONS Patient Name: Belgica Harper [facility] Number: [id number] Skin prepped and cleansed with alcohol Patch secured to prepped area Monitor Activated Serial #: [id number] Patient Instructed: Prescribed order timeframe Bathing guidelines Usage of event button and diary documentation Return of monitor at the end of prescribed order Call with problems [phone] or [phone] ext. [phone] Patient expresses a good understanding of instructions Tristian Pretty [facility] 12-19-2023 History of Present illness Narrative EVENT MONITOR DISPOSABLE PATCH INSTRUCTIONS Patient Name: Belgica Harper [facility] Number: [id number] Skin prepped and cleansed with alcohol Patch secured to prepped area Monitor Activated Serial #: [id number] Patient Instructed: Prescribed order timeframe Bathing guidelines Usage of event button and diary documentation Return of monitor at the end of prescribed order Call with problems [phone] or [phone]. [phone] Patient expresses a good understanding of instructions Tristian Pretty documented in this encounter [facility] 12-19-2023 Instructions Solo Mora MD - 12/19/2023 3:27 PM EDT Next Steps: 1). Please wear a heart monitor for 2 weeks and mail it back 2). Please get a stress echo done and follow up with me afterwards documented in this encounter [facility] 12-19-2023 History of Present illness Narrative Images from the original note were not included. [facility] [place] [facility] Department of Cardiovascular Medicine SECTION OF CARDIAC PACING and ELECTROPHYSIOLOGY OUTPATIENT VISIT DATE December 19, 2023 OUTPATIENT VISIT TYPE NEW PRIMARY CARE PHYSICIAN: Giovani Hagen MD [address] [place] [address] CHIEF COMPLAINT: Syncope, cardiac evaluation for family testing HISTORY OF PRESENT ILLNESS: Ms. Harper is a 33 year old female who presents today for syncopal episodes. She has PMHx of IBS, bipolar disease, asthma and syncope. She reports her 9 years old daughter was having symptoms of shortness of breath without exertion and was seen by Dr. Asa Champion. The mother, who is the patient here today, was referred to get checked out as a part of her daughter and family evaluation. She reports playing sport in college with exertional syncope. She did not follow up at that time. She stopped playing sport with no recurrence of syncopal episodes beside once. Her last syncopal episodes takes place back in 2019 when she did intense work outs. Her preceding symptoms prior to syncope were HR 185 bpm, lightheadedness and dizziness. She felt confused and somewhat disoriented following the syncopal episode. She has never had any workup done including Stress Echo, social security assessor or 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 Reports symptoms of palpitations and shortness of breath with exertion. She does not monitor her HR at home. She denies chest pain, shortness of breath, orthopnea, cough, edema, PND, lightheadedness or recent syncope. PAST MEDICAL HISTORY No date: Asthma No date: Bipolar disorder (HCC) 2018: Diverticulitis No date: IBS (irritable bowel syndrome)PAST SURGICAL HISTORY No date: SECTION HX 04/2018: COLONOSCOPY Comment: IBS-c No date: HYSTEROSCOPY, DIAGNOSTIC (SEPARATE SOCIAL HISTORY Social History Tobacco Use Smoking status: Never Smokeless tobacco: Never Vaping Use Vaping status: Never Used Substance Use Topics Alcohol use: Yes Comment: socially Drug use: Never FAMILY HISTORY Problem Relation Age of Onset other (heart murmur) Brother Colon Cancer Maternal Grandfather started in the kidney other (murmur) Maternal Aunt ALLERGIES: ALLERGIES Allergen Reactions Iv Contrast [Iodine] Swelling, Itching Omnipaque 300: Patient experienced itching on her neck and left side of her face. Also, pt complained of tongue feeling itchy and feels like something is stuck in her throat . Patient received diphenhydramine (Benadryl) Omnipaque [Iohexol] Itching MEDICATIONS: amphetamine-dextroamphetamine XR (ADDERALL XR) 30 mg capsule^Take 30 mg by mouth once daily.^Disp: ^Rfl: ALPRAZolam (XANAX) 0.5 mg tablet^Take 0.25 mg by mouth two times a day.^Disp: ^Rfl: 0 cariprazine (VRAYLAR) 4.5 mg capsule^Take 4.5 mg by mouth once daily.^Disp: ^Rfl: REVIEW OF SYSTEMS: GENERAL: No-Weight loss or gain, No-Fever or Chills, No-Weakness and No-Sleep difficulties. HEENT: No-Headache, No-Impaired Vision, No-Glasses, No-Hearing Impairment, No-Ringing in Ears, No-Nosebleeds, No-Poor Dental Care, No-Bleeding Gums and No-Dentures. NECK: No-Swelling, No-Pain, No-Stiffness RESPIRATORY: No-Cough, No-Blood in Sputum, No-Shortness of breath, No-Wheezing, Apnea GASTROINTESTINAL: No- Trouble swallowing, No-Heartburn, No-Change in bowel habits, No-Blood in stool, No-Dark black stools MUSCULOSKELETAL: No-Muscle or joint pain, No-stiffness, No-Joint swelling NEUROLOGIC/PSYCHIATRIC: No-Weakness, No-Paralysis, No-Numbness, No-Tingling, No-Tremor, No-Nervousness or No-anxiety, No-Depressed mood, No-Memory loss SKIN: No-Rash, Itching HEMATOLOGICAL/LYMPHATIC: No-Easy bruising, No-Easy bleeding ENDOCRINE: No-Heat or No-Cold Intolerance, No-Excessive Sweating, No-Frequent Urination, No-Frequent Thirst Analia Umanzor RN PHYSICAL EXAMINATION: BP 127/91 Pulse 94 Ht 157.5 cm (5' 2 ) Wt 85.3 kg (188 lb) BMI 34.39 kg/m General: Well appearing, in no acute distress. Skin: No clubbing, no cyanosis. Eyes: Extra ocular movements intact Oropharynx: Teeth in good repair. Neck: No jugular venous distention, no carotid bruits, carotids have a normal upstroke, no palpable thyromegaly. Lungs: Clear to auscultation bilaterally, no wheezing or rhonchi. Heart: Regular rhythm, PMI not displaced, S1, S2 normal, no S3, no S4, no heaves, no rub and no murmur. Abdomen: Soft, nontender, bowel sounds normal, no palpable organomegaly, no bruits. Extremities: No peripheral edema . Grade 2/4 distal pulses bilaterally. Neuro: Oriented to person, place and time, alert, cooperative, gait coordinated. CARDIOVASCULAR MEDICINE TESTING: EKG IMPRESSION: Ms. Harper is a 33 year old female who presents today for syncopal episodes. She has PMHx of IBS, bipolar disease, asthma and syncope. She reports her 9 years old daughter was having symptoms of shortness of breath without exertion and was seen by Dr. Asa Champion. The mother, who is the patient here today, was referred to get checked out as a part of her daughter and family evaluation. She reports playing sport in college with exertional syncope. She did not follow up at that time. She stopped playing sport with no recurrence of syncopal episodes beside once. Her last syncopal episodes takes place back in 2019 when she did intense work outs. Her preceding symptoms prior to syncope were HR 185 bpm, lightheadedness and dizziness. She felt confused and somewhat disoriented following the syncopal episode. She has never had any workup done including Stress Echo, social security assessor or 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 PLAN AND RECOMMENDATIONS: - Exercise stress echo for exertional syncope to rule out structural or arrhythmic cause - 2 week tina Fitzgerald personally interviewed, confirmed and edited the above information as obtained by others. CONTACT INFORMATION: Solo Mora MD documented in this encounter [facility] 12-19-2023 Note HNO ID: [id number] Author: SOLO MORA MD Service: ? Author Type: Physician Type: Progress Notes Filed: 12/28/2023 02:49 Note Text: [facility] [place] [facility] Department of Cardiovascular Medicine SECTION OF CARDIAC PACING and ELECTROPHYSIOLOGY OUTPATIENT VISIT DATE December 19, 2023 OUTPATIENT VISIT TYPE NEW PRIMARY CARE PHYSICIAN: Giovani Hagen MD [address] [place] [address] CHIEF COMPLAINT: Syncope, cardiac evaluation for family testing HISTORY OF PRESENT ILLNESS: Ms. Harper is a 33 year old female who presents today for syncopal episodes. She has PMHx of IBS, bipolar disease, asthma and syncope. She reports her 9 years old daughter was having symptoms of shortness of breath without exertion and was seen by Dr. Asa Champion. The mother, who is the patient here today, was referred to get checked out as a part of her daughter and family evaluation. She reports playing sport in college with exertional syncope. She did not follow up at that time. She stopped playing sport with no recurrence of syncopal episodes beside once. Her last syncopal episodes takes place back in 2019 when she did intense work outs. Her preceding symptoms prior to syncope were HR 185 bpm, lightheadedness and dizziness. She felt confused and somewhat disoriented following the syncopal episode. She has never had any workup done including Stress Echo, social security assessor or 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 Reports symptoms of palpitations and shortness of breath with exertion. She does not monitor her HR at home. She denies chest pain, shortness of breath, orthopnea, cough, edema, PND, lightheadedness or recent syncope. PAST MEDICAL HISTORY No date: Asthma No date: Bipolar disorder (HCC) 2018: Diverticulitis No date: IBS (irritable bowel syndrome)PAST SURGICAL HISTORY No date: SECTION HX 04/2018: COLONOSCOPY Comment: IBS-c No date: HYSTEROSCOPY, DIAGNOSTIC (SEPARATE SOCIAL HISTORY Social History Tobacco Use Smoking status: Never Smokeless tobacco: Never Vaping Use Vaping status: Never Used Substance Use Topics Alcohol use: Yes Comment: socially Drug use: Never FAMILY HISTORY Problem Relation Age of Onset other (heart murmur) Brother Colon Cancer Maternal Grandfather started in the kidney other (murmur) Maternal Aunt ALLERGIES: ALLERGIES Allergen Reactions Iv Contrast [Iodine] Swelling, Itching Omnipaque 300: Patient experienced itching on her neck and left side of her face. Also, pt complained of tongue feeling itchy and feels like something is stuck in her throat . Patient received diphenhydramine (Benadryl) Omnipaque [Iohexol] Itching MEDICATIONS: amphetamine-dextroamphetamine XR (ADDERALL XR) 30 mg capsuleTake 30 mg by mouth once daily.Disp: Rfl: ALPRAZolam (XANAX) 0.5 mg tabletTake 0.25 mg by mouth two times a day.Disp: Rfl: 0 cariprazine (VRAYLAR) 4.5 mg capsuleTake 4.5 mg by mouth once daily.Disp: Rfl: REVIEW OF SYSTEMS: GENERAL: No-Weight loss or gain, No-Fever or Chills, No-Weakness and No-Sleep difficulties. HEENT: No-Headache, No-Impaired Vision, No-Glasses, No-Hearing Impairment, No-Ringing in Ears, No-Nosebleeds, No-Poor Dental Care, No-Bleeding Gums and No-Dentures. NECK: No-Swelling, No-Pain, No-Stiffness RESPIRATORY: No-Cough, No-Blood in Sputum, No-Shortness of breath, No-Wheezing, Apnea GASTROINTESTINAL: No- Trouble swallowing, No-Heartburn, No-Change in bowel habits, No-Blood in stool, No-Dark black stools MUSCULOSKELETAL: No-Muscle or joint pain, No-stiffness, No-Joint swelling NEUROLOGIC/PSYCHIATRIC: No-Weakness, No-Paralysis, No-Numbness, No-Tingling, No-Tremor, No-Nervousness or No-anxiety, No-Depressed mood, No-Memory loss SKIN: No-Rash, Itching HEMATOLOGICAL/LYMPHATIC: No-Easy bruising, No-Easy bleeding ENDOCRINE: No-Heat or No-Cold Intolerance, No-Excessive Sweating, No-Frequent Urination, No-Frequent Thirst Analia Umanzor RN PHYSICAL EXAMINATION: BP 127/91 Pulse 94 Ht 157.5 cm (5' 2 ) Wt 85.3 kg (188 lb) BMI 34.39 kg/m? General: Well appearing, in no acute distress. Skin: No clubbing, no cyanosis. Eyes: Extra ocular movements intact Oropharynx: Teeth in good repair. Neck: No jugular venous distention, no carotid bruits, carotids have a normal upstroke, no palpable thyromegaly. Lungs: Clear to auscultation bilaterally, no wheezing or rhonchi. Heart: Regular rhythm, PMI not displaced, S1, S2 normal, no S3, no S4, no heaves, no rub and no murmur. Abdomen: Soft, nontender, bowel sounds normal, no palpable organomegaly, no bruits. Extremities: No peripheral edema . Grade 2/4 distal pulses bilaterally. Neuro: Oriented to person, place and time, alert, cooperative, gait coordinated. CARDIOVASCULAR MEDICINE TESTING: EKG IMPRESSION: Ms. Harper is a 33 year old female who presents today for syncopal episod (more content not included)... [facility] 11-02-2023 Telephone encounter Note Images from the original note were not included. Records are in Care Everywhere: EP Referral- 11/01/23 (Dr. Shilo Dillon/Cardiology) Criss Mccrary [facility] 11-02-2023 Miscellaneous Notes Images from the original note were not included. Records are in Care Everywhere: EP Referral- 11/01/23 (Dr. Shilo Dillon/Cardiology) Criss Mccrary documented in this encounter [facility] 03-20-2023 Miscellaneous Notes Patient is a [...] prior to transfer. documented in this encounter [facility] 11-03-2022 Miscellaneous Notes PA for Ibsrela initiated electronically. Awaiting response [facility] ID# [id number] Rx BIN [id number] Rx PCN CLAIMCR Rx Grp STOH documented in this encounter [facility] 11-02-2022 History of Present illness Narrative Behavioral Medicine [facility] [place] Name: Belgica Harper MR#: [id number] Date: 11/02/2022 Time: 1 hour Referred by: [...] She was given the website for the [facility] Behavioral Medicine Program and shown the relaxation recordings with the recommendation to practice this and the rationale behind their use. Follow-up with Dr. Conteh was discussed as well as encouraging her to continue her PTSD work with a local trauma therapist. Soraida Zhang, Ph.D. documented in this encounter [facility] 11-02-2022 History of Present illness Narrative Assessment ASSESSMENT 32 year old female with medical refractory gastroparesis. PLAN I discussed surgical therapy for gastroparesis in detail. Belgica Harper is candidate for further medical treatment. Needs to stop Wegovy May consider for wireless motility capsule study Constipation medication change per Dr. 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 10-18-2022 Miscellaneous Notes Images from the original note were not included. DO Palomo Keller [facility] Clinical Pool Please ask her to see BANQUET ATTENDANT to r/o endometriosis there was a very slight abnormal wave (not strong) suggesting its possible Called and spoke with the patient and relayed providers message. documented in this encounter [facility] 10-18-2022 Miscellaneous Notes PA initiated via [employer]. Await response. Covered: Retail, Mail Order Unknown: Specialty, Long-Term Care Group ID: [facility] Group name: BIN: [id number] PCN: CLAIMCR documented in this encounter [facility] 10-18-2022 History of Present illness Narrative Images from the original note were not included. documented in this encounter [facility] 10-17-2022 Nurse Note EGG completed. Able to drink the 500 ml of water without any difficulty. documented in this encounter [facility] 09-12-2022 Note HNO ID: [id number] Author: Shivani Vasquez RT(R) Service: Nuclear Medicine Author Type: [place] Type: Progress Notes Filed: 09/12/2022 2:46 PM [...] 10:11AM PATIENT DISCHARGED TO: Ambulatory patient, left [place] department area. A Diagnostic radioactive procedure has taken place, with no further precautions necessary other than routine body substance precautions. More information regarding radiation safety can be found using this link: [email or web address] rotection [email or web address]%20Nuclear%20Med icine%[email or web address] SIGNATURE: RT Amber(R) PATIENT NAME: Belgica Harper DATE: September 12, 2022 TIME: 2:45 PM PAGER/CONTACT #: [facility] 09-12-2022 History of Present illness [...] [address] PERFORMED: No IV SITE: [place] only - not applicable, oral or physician administered agents given to patient POST EXAM PIV STATUS: Not applicable PROCEDURE TYPE: NM GET: 1.1 mCi Tc99m SULFUR COLLOID was administered orally via 4 ounces of Egg Beaters,2 pieces of toast, 1 ounce of jelly with 8 ounces of water orally ADMINISTRATION TIME: 10:11AM PATIENT DISCHARGED TO: Ambulatory patient, left [place] department area. A Diagnostic radioactive procedure has taken place, with no further precautions necessary other than routine body substance precautions. More information regarding radiation safety can be found using this link: [email or web address] [email or web address] ear%20Medicine%[email or web address] SIGNATURE: RT Amber(R) PATIENT NAME: Belgica Harper DATE: September 12, 2022 TIME: 2:45 PM PAGER/CONTACT #: documented in this encounter [facility] 08-24-2022 Miscellaneous Notes Lm to confirm procedure for 08-31-22 documented in this encounter [facility] 07-05-2022 Hospital Discharge instructions Patient Education [...] With:Madhuri MISHRA Address: [facility] [address], [place] [address]- Business (1) When:11/04/2022 08:39:10 Comments:With a stone metabolic work-up [facility] 06-23-2022 Miscellaneous Notes Confirmed procedure for 06-30-22 documented in this encounter [facility] 06-15-2022 Note HNO ID: [id number] Author: Monet Osei RDMS Service: Abstract Author Type: [place] Type: Progress Notes Filed: 06/15/2022 8:09 PM [...] Osei RDMS June 15, 2022 8:08 PM [facility] 06-15-2022 History of Present illness [...] 2022 8:08 PM documented in this encounter [facility] 06-14-2022 Miscellaneous Notes Images from the original note were not included. for Milly to schedule follow up US [...] MD 06/14/2022 9:35 AM EST Back to [facility] Milly, I reviewed the ultrasound done in November This hypodensity was felt to be a benign cyst I will order a follow up ultrasound to be done This is reassuring Carol Winn MD 06/14/2022 9:29 AM EST Ma Milly, the CT scan showed Fatty liver No [...] needed pending results documented in this encounter [facility] 06-10-2022 History of Present illness Narrative [...] IV DATA: Not applicable SIGNED BY: RT Germain(R) June 10, 2022 10:01 AM documented in this encounter [facility] 05-27-2022 Note HNO ID: [id number] Author: RT Nakita(Aroldo) Service: Radiology Author Type: [...] RT Nakita(R) May 27, 2022 12:29 PM [facility] 05-27-2022 History of Present illness [...] 2022 12:29 PM documented in this encounter [facility] 05-27-2022 History of Present illness Narrative [...] Diagnosis Date Asthma Bipolar disorder (HCC) Diverticulitis 2018 IBS (irritable bowel syndrome) PAST SURGICAL HISTORY [...] follow up with Dr. Hylton who is education nurse We discussed seeing endocrinology to help with [...] follow-ups on file. documented in this encounter [facility] 05-03-2022 Evaluation note Encounter Date Diagnosis Assessment Notes Apr, ENGLISH (nonalcoholic steatohepatiti s) (ICD-10 - K75.81) Apr, Abnormal ultrasound (ICD-10 - R93.89) Apr, Elevated liver enzymes (ICD-10 - R74.8) Apr, Liver cyst (ICD-10 - K76.89) [employer] Other Evaluation + Plan note Future Appointments Appointment Date:06/30/2022 10:00:00 AM Scheduled Provider: Location:[facility] Appointment Type:Urology CALL PAT FT Appointment Date:07/05/2022 08:15:00 AM Scheduled Provider: Location:[facility] Appointment Type:Urology FT Diagnostic Tests Pending * Urine Culture [facility] App[facility]ments Appointment Date:11/07/2022 03:15:00 PM Scheduled Provider:Madhuri MISHRA MD Location:[facility] Appointment [facility] Future Appointments Appointment Date:12/30/2024 03:15:00 PM Scheduled Provider:Madhuri MISHRA MD Location:[facility] Appointment Type:URO Office Visit [facility] evalvjagdu noteNo assessment information available [facility] Work Phone: Evaluation note* Diagnosis Fatty liver- Primary Other chronic nonalcoholic liver disease Bilious vomiting with nausea Right sided abdominal pain Abdominal pain, unspecified site Nausea Nausea alone History of diverticulitis SOB (shortness of breath) Shortness of breath documented in this encounter [facility] note* Diagnosis Liver lesion- Primary Other specified disorders of liver documented in this encounter [facility] note* Diagnosis Gastroparesis- Primary documented in this encounter [facility] note* Diagnosis Gastroparesis- Primary documented in this encounter [facility] note* Diagnosis Irritable bowel syndrome with constipation- Primary Irritable bowel syndrome documented in this encounter [facility] note* Diagnosis Gastroparesis [facility] Diagnosis Gastroparesis- Primary [facility]* Diagnosis SOB (shortness of breath) Shortness of breath documented in this encounter [facility] note* Diagnosis Liver lesion Other specified disorders of liver documented in this encounter [facility] note* Diagnosis Elevated LFTs Other abnormal blood chemistry documented in this encounter [facility] note* Diagnosis Bilious vomiting with nausea Right sided abdominal pain Abdominal pain, unspecified site Nausea Nausea alone documented in this encounter [facility] note* Diagnosis Nausea Nausea alone documented in this encounter [facility] note* Diagnosis Gastroparesis- Primary documented in this encounter [facility] note* Diagnosis Syncope and collapse- Primary documented in this encounter [facility] note* Diagnosis Syncope, unspecified syncope type- Primary documented in this encounter [facility] note* Diagnosis Syncope, unspecified syncope type- Primary [facility] Narrative - Reported* Type Description Date Medical History Anxiety Medical History Depression Medical History Diverticulosis Medical History bipolar Surgical History C section Surgical History hysterectomy Hospitalization History see above Hospitalization History diverticulitis 01/24/18 Hospitalization History NONE ON THE LAST YEAR [employer] Other Hospital course Narrative No data available for this section [facility] instructions No data available for this section [facility] No data available for this section [facility] Outpatient Procedure (Routine) - Authorized Specialty Diagnoses / Procedures Referred By Norma kennedy Referred To Contact [facility] Diagnoses Bilious vomiting with nausea Right sided abdominal pain Procedures EGD DIAGNOSTIC ESOPHAGOGASTRODUODENOSC OPY [place] [address] [place] [address] [facility] [place] [address] [place] [address] Referral ID Status Reason Start Date Expiration Date Visits Requested Visits Authorized [id number] Authorized Auto-Generat ed Referral 05/27/2022 05/27/2023 1 1 * MRI/CT (Routine) - Authorized Specialty Diagnoses / Procedures Referred By Norma kennedy Referred To Contact CT IMAGING Diagnoses Bilious vomiting with nausea Right sided abdominal pain Nausea Procedures CT ABD/PEL WO IVCON CT ABD & P[place] [address] [place] [address] Ct Imaging Referral ID Status Reason Start Date Expiration Date Visits Requested Visits Authorized [id number] Authorized Auto-Generat ed Referral 05/27/2022 06/26/2023 1 1 [facility] for referral (narrative)* Diagnostic Procedure Only (Routine) - Authorized Specialty Diagnoses / Procedures Referred By Contac t Referred To Contact US IMAGING Diagnoses Liver lesion Procedures US ABD RT UPPER QUADRANT US ABDOMINAL REAL TIME W/IMAGE LIMITED Carol Winn [place] [id number] [place] [phone] Us Imaging Referral ID Status Reason Start Date Expiration Date Visits Requested Visits Authorized [id number] Authorized Auto-Generat ed Referral 06/14/2022 07/14/2023 1 1 [facility] for referral (narrative)* Diagnostic Procedure Only (Routine) - Closed Specialty Diagnoses / Procedures Referred By Contac t Referred To Contact US IMAGING Diagnoses Liver lesion Procedures US ABD RT UPPER QUADRANT US ABDOMINAL REAL TIME W/IMAGE LIMITED Carol Winn MD [id number] [place] [phone] [place] [address] Referral ID Status Reason Start Date Expiration Date V isits Requested Visits Authorized [id number] Closed Auto-Generate d Referral 06/14/2022 07/14/2023 1 1 [facility] for referral (narrative)* Diagnostic Procedure Only (Routine) - Closed Specialty Diagnoses / Procedures Referred By Contac t Referred To Contact US IMAGING Diagnoses Elevated LFTs Procedures US ABD RT UPPER QUADRANT US ABDOMINAL REAL TIME W/[place] [address] [place] [address] [place] [address] Referral ID Status Reason Start Date Expiration Date V isits Requested Visits Authorized [id number] Closed Auto-Generate d Referral 11/24/2021 12/24/2022 1 1 [facility] for referral (narrative)* Diagnostic Procedure Only (Routine) - Closed Specialty Diagnoses / Procedures Referred By Contac t Referred To Contact MOLECULAR & FUNCTIONAL IMAGING Diagnoses Nausea Procedures NM GASTRIC EMPTYING SOLID [place]STRIC [place] [address] [place] [address] Molecular & Functional Imaging [address] [id number] Referral ID Status Reason Start Date Expiration Date V isits Requested Visits Authorized [id number] Closed Auto-Generate d Referral 08/31/2022 09/30/2023 1 1 [facility] for referral (narrative)* Outpatient Procedure (Routine) - Authorized Specialty Diagnoses / Procedures [facility] Referred To Contact [facility] [place] Diagnoses Gastroparesis Procedures ECG COMPLETE ECG ROUTINE ECG W/LEAST 12 LDS W/I&R Solo Mora MD [address] [place] [address] [facility] [address] [address] Referral ID Status Reason Start Date Expiration Date Visits Requested Visits Authorized [id number] Authorized Auto-Generat ed Referral 11/02/2023 11/01/2024 1 1 [facility] for referral (narrative)* Outpatient Procedure (Routine) - Authorized Specialty Diagnoses / Procedures [facility] Referred To Contact [facility] [place] Diagnoses Syncope and collapse Procedures ECG COMPLETE ECG ROUTINE ECG W/LEAST 12 LDS W/I&R Solo Mora MD [address] [place] [address] [facility] [address] [address] Referral ID Status Reason Start Date Expiration Date Visits Requested Visits Authorized [id number] Authorized Auto-Generat ed Referral 12/19/2023 12/18/2024 1 1 [facility] for visit NarrativePATIENT HERE AT THE REQUEST OF DR. HAGEN FOR ENGLISH & ABNORMAL US. ULTRASOUND AND LABS IN REFERRAL. PATIENT STATES SHE FEELS LETHARGIC & HAS OCCASIONAL ABDOMINAL PAINRockwood EnerG2 Other [facility] for visit Narrative* Diagnostic Procedure Only (Routine) - Closed Specialty Diagnoses / Procedures Referred By Contac t Referred To Contact US IMAGING Diagnoses Liver lesion Procedures US ABD RT UPPER QUADRANT US ABDOMINAL REAL [place] W/[place] [address] [place] [address] Us Imaging [facility] Referral ID Status Reason Start Date Expiration Date V isits Requested Visits Authorized [id number] Closed Auto-Generate d Referral 06/14/2022 07/14/2023 1 1 [facility] for visit Narrative* Diagnostic Procedure Only (Routine) - Closed Specialty Diagnoses / Procedures Referred By Contmusa t Referred To Contact US IMAGING Diagnoses Elevated LFTs Procedures US ABD RT UPPER QUADRANT US ABDOMINAL REAL TIME W/[place] [address] [place] [address] [place] [address] Referral ID Status Reason Start Date Expiration Date V isits Requested Visits Authorized [id number] Closed Auto-Generate d Referral 11/24/2021 12/24/2022 1 1 [facility] for visit Narrative* Diagnostic Procedure Only (Routine) - Closed Specialty Diagnoses / Procedures Referred By Contac t Referred To Contact MOLECULAR & FUNCTIONAL IMAGING Diagnoses Nausea Procedures NM GASTRIC EMPTYING SOLID [place]STR[place] [address] [facility] [place] [address] Molecular & Functional Imaging [address] [place] [address] Referral ID Status Reason Start Date Expiration Date V isits Requested Visits Authorized [id number] Closed Auto-Generate d Referral 08/31/2022 09/30/2023 [address] [facility] Summary Purpose Family History No Family History Records FoundNo Family History Records FoundNo Family History Records FoundNo Family History Records FoundNo Family History Records FoundNo Family History Records FoundNo Family History Records FoundNo Family History Records FoundNo Family History Records Found No data available for this section No Family History Records Found Advance Directives No Advanced Directives Records Found Advance Directive Response Recorded Date/ Time Advance Directives No December 10, 2018 10:13am Advance Directive Response Recorded Date/ Time Advance Directives No December 10, 2018 11:13am Chief Complaint and Reason for Visit Chief Complaint ENLGISH, Elevated Liver Enyzmes Chief Complaint R93.89 Reason for Referral Specialty Diagnoses / Procedures Referred By Norma kennedy Referred To Contact [facility] [place] Diagnoses Syncope, unspecified syncope type Procedures CARDIOVASCULAR MEDICINE OP FOLLOW UP APPT ORDER Solo Mora MD [address] [place] [address] [place] [address] Referral ID Status Reason Start Date Expiration Date Visits Requested Visits Authorized [id number] Ref Not Required PCP Requested Referral 12/28/2023 12/27/2024 1 1 Specialty Diagnoses / Procedures Referred By Norma kennedy Referred To Contact [facility] [place] Diagnoses Syncope, unspecified syncope type Procedures STRESS ECHO TREADMILL ECHO TTHRC R-T 2D W/WO M-MODE COMPLETE REST&ST Solo Mora MD [address] [place] [address] [place] [address] Referral ID Status Reason Start Date Expiration Date Visits Requested Visits Authorized [id number] Authorized Auto-Generat ed Referral 12/19/2023 12/18/2024 1 1 Specialty Diagnoses / Procedures Referred By Norma kennedy Referred To Contact CT IMAGING Diagnoses Bilious vomiting with nausea Right sided abdominal pain Nausea Procedures CT ABD/PEL WO IVCON CT ABD & PELVIS W/[place] [address] [place] [address] Ct Imaging [place] [address] Referral ID Status Reason Start Date Expiration Date V isits Requested Visits Authorized [id number] Closed Auto-Generate d Referral 05/27/2022 06/26/2023 1 1 Additional Source Comments INFORMATION SOURCE (unrecogn ized section and content) DATE CREATED [facility] [place] DATE CREATED AUTHOR AUTHOR'S ORGANIZ ATION 08/23/2021 [facility] Specialist DATE CREATED AUTHOR AUTHOR'S ORGANIZ ATION 07/17/2022 [facility] DATE CREATED AUTHOR AUTHOR'S ORGANIZ ATION 10/29/2022 [facility] DATE CREATED AUTHOR AUTHOR'S ORGANIZ ATION 10/31/2022 [facility] DATE CREATED AUTHOR AUTHOR'S ORGANIZ ATION 03/22/2023 [facility] DATE CREATED AUTHOR AUTHOR'S ORGANIZ ATION 03/28/2023 [facility] DATE CREATED AUTHOR AUTHOR'S ORGANIZ ATION 12/27/2023 [facility] dical Specialists [facility] DATE CREATED AUTHOR AUTHOR'S ORGANIZ ATION 12/29/2023 [facility] DATE CREATED AUTHOR AUTHOR'S ORGANIZ ATION 01/01/2024 [facility] Care Teams (unrecognized sec tion and content) Team Status: Active Member Role Status Dates Giovani Hagen MD Primary Care Provider Active Team Status: Inactive Member Role Status Dates Erwin Hylton MD Attending Provider Active Giovani Hagen MD Primary Care Provider Active Inside Plant Supervisor Relationship Specialty Start Date End Date Giovani Hagencby [address] [facility] [address] [place] [address] PCP - General Family Medicine 03/27/19 Inside Plant Supervisor Relationship Specialty Start Date End Date Giovani Hagenalay [address] [facility] [address] [place] [address] PCP - General Family Medicine 03/27/19 Inside Plant Supervisor Relationship Specialty Start Date End Date Giovani Hagenalay [address] [facility] [address] [place] [address] PCP - General Family Medicine 03/27/19 Inside Plant Supervisor Relationship Specialty Start Date End Date DepositGiovani mcclellany [address] [place] [address] [place] [address] PCP - General Family Medicine 03/27/19 Inside Plant Supervisor Relationship Specialty Start Date End Date Giovani Hagenalay [address] [place] [address] [place] [address] PCP - General Family Medicine 03/27/19 Inside Plant Supervisor Relationship Specialty Start Date End Date Giovani Hageny [address] [place] [address] [place] [address] PCP - General Family Medicine 03/27/19 Inside Plant Supervisor Relationship Specialty Start Date End Date Giovani Hageny [address] [place] [address] [place] [address] PCP - General Family Medicine 03/27/19 Inside Plant Supervisor Relationship Specialty Start Date End Date Giovani Hageny [address] [place] [address] [place] [address] PCP - General Family Medicine 03/27/19 Inside Plant Supervisor Relationship Specialty Start Date End Date Giovani Hageny [address] [place] [address] [place] [address] PCP - General Family Medicine 03/27/19 Inside Plant Supervisor Relationship Specialty Start Date End Date Giovani Hagenalay [address] [place] [address] [place] [address] PCP - General Family Medicine 03/27/19 Inside Plant Supervisor Relationship Specialty Start Date End Date HieuGiovani mcclellanalay [address] [place] [address] [place] [address] PCP - General Family Medicine 03/27/19 Inside Plant Supervisor Relationship Specialty Start Date End Date Giovani Hageny [address] [place] [address] [place] [address] PCP - General Family Medicine 03/27/19 Inside Plant Supervisor Relationship Specialty Start Date End Date Giovani Hagen [address] [place] [address] [place] [address] PCP - General Family Medicine 03/27/19 Inside Plant Supervisor Relationship Specialty Start Date End Date Giovani Hagen [address] [place] [address] [place] [address] PCP - General Family Medicine 03/27/19 Inside Plant Supervisor Relationship Specialty Start Date End Date Giovani Hagen MD [address] [place] [address] [place] [address] PCP - General Family Medicine 03/27/19 Inside Plant Supervisor Relationship Specialty Start Date End Date Giovani Hagen MD [address] [place] [address] PCP - General Family Medicine 03/27/19 Inside Plant Supervisor Relationship Specialty Start Date End Date Giovani Hagen MD [address] [place] [address] PCP - General Family Medicine 03/27/19 Inside Plant Supervisor Relationship Specialty Start Date End Date Giovani Hagen MD [address] [place] [address] PCP - General Family Medicine 03/27/19 Inside Plant Supervisor Relationship Specialty Start Date End Date Giovani Hagen MD [address] [place] [address] PCP - General Family Medicine 03/27/19 Inside Plant Supervisor Relationship Specialty Start Date End Date Giovani Hagen MD [address] [place] [address] PCP - General Family Medicine 03/27/19 Inside Plant Supervisor Relationship Specialty Start Date End Date Giovani Hagen MD [address] [place] [address] PCP - General Family Medicine 03/27/19 Inside Plant Supervisor Relationship Specialty Start Date End Date Giovani Hagen MD [address] [place] [address] PCP - General [facility] Medicine 03/27/19 Inside Plant Supervisor Relationship Specialty Start Date End Date Giovani Hagen MD [address] [facility] [address] [place] [address] PCP - General [facility] Medicine 03/27/19 Inside Plant Supervisor Relationship Specialty Start Date End Date Giovnai Hagen MD [address] [facility] [address] [place] [address] PCP - General [facility] Medicine 03/27/19 Inside Plant Supervisor Relationship Specialty Start Date End Date Giovani Hagen MD [address] [facility] [address] [place] [address] PCP - General Family Medicine 03/27/19 Source Comments (unrecognize d section and content) In the event this informatio n is protected by the Federal Confidentiality of Alcohol and Drug Abuse Patient Records regulations: The Federal rules restrict any use of the information to criminally investigate or prosecute any alcohol or drug abuse patient.[facility] the event this information is protected by the Federal Confidentiality of Alcohol and Drug Abuse Patient Records regulations: The Federal rules restrict any use of the information to criminally investigate or prosecute any alcohol or drug abuse patient.[facility]In the event this information is protected by the Federal Confidentiality of Alcohol and Drug Abuse Patient Records regulations: The Federal rules restrict any use of the information to criminally investigate or prosecute any alcohol or drug abuse patient.[facility]In the event this information is protected by the Federal Confidentiality of Alcohol and Drug Abuse Patient Records regulations: The Federal rules restrict any use of the information to criminally investigate or prosecute any alcohol or drug abuse patient.[facility]In the event this information is protected by the Federal Confidentiality of Alcohol and Drug Abuse Patient Records regulations: The Federal rules restrict any use of the information to criminally investigate or prosecute any alcohol or drug abuse patient.[facility] HospitalIn the event this information is protected by the Federal Confidentiality of Alcohol and Drug Abuse Patient Records regulations: The Federal rules restrict any use of the information to criminally investigate or prosecute any alcohol or drug abuse patient.[facility] the event this information is protected by the Federal Confidentiality of Alcohol and Drug Abuse Patient Records regulations: The Federal rules restrict any use of the information to criminally investigate or prosecute any alcohol or drug abuse patient.[facility] HospitalIn the event this information is protected by the Federal Confidentiality of Alcohol and Drug Abuse Patient Records regulations: The Federal rules restrict any use of the information to criminally investigate or prosecute any alcohol or drug abuse patient.[facility] HospitalIn the event this information is protected by the Federal Confidentiality of Alcohol and Drug Abuse Patient Records regulations: The Federal rules restrict any use of the information to criminally investigate or prosecute any alcohol or drug abuse patient.[facility] HospitalIn the event this information is protected by the Federal Confidentiality of Alcohol and Drug Abuse Patient Records regulations: The Federal rules restrict any use of the information to criminally investigate or prosecute any alcohol or drug abuse patient.[facility] HospitalIn the event this information is protected by the Federal Confidentiality of Alcohol and Drug Abuse Patient Records regulations: The Federal rules restrict any use of the information to criminally investigate or prosecute any alcohol or drug abuse patient.[facility] HospitalIn the event this information is protected by the Federal Confidentiality of Alcohol and Drug Abuse Patient Records regulations: The Federal rules restrict any use of the information to criminally investigate or prosecute any alcohol or drug abuse patient.[facility] HospitalIn the event this information is protected by the Federal Confidentiality of Alcohol and Drug Abuse Patient Records regulations: The Federal rules restrict any use of the information to criminally investigate or prosecute any alcohol or drug abuse patient.[facility] HospitalIn the event this information is protected by the Federal Confidentiality of Alcohol and Drug Abuse Patient Records regulations: The Federal rules restrict any use of the information to criminally investigate or prosecute any alcohol or drug abuse patient.[facility] HospitalIn the event this information is protected by the Federal Confidentiality of Alcohol and Drug Abuse Patient Records regulations: The Federal rules restrict any use of the information to criminally investigate or prosecute any alcohol or drug abuse patient.[facility] HospitalIn the event this information is protected by the Federal Confidentiality of Alcohol and Drug Abuse Patient Records regulations: The Federal rules restrict any use of the information to criminally investigate or prosecute any alcohol or drug abuse patient.[facility] HospitalIn the event this information is protected by the Federal Confidentiality of Alcohol and Drug Abuse Patient Records regulations: The Federal rules restrict any use of the information to criminally investigate or prosecute any alcohol or drug abuse patient.[facility] HospitalIn the event this information is protected by the Federal Confidentiality of Alcohol and Drug Abuse Patient Records regulations: The Federal rules restrict any use of the information to criminally investigate or prosecute any alcohol or drug abuse patient.[facility] HospitalIn the event this information is protected by the Federal Confidentiality of Alcohol and Drug Abuse Patient Records regulations: The Federal rules restrict any use of the information to criminally investigate or prosecute any alcohol or drug abuse patient.[facility] HospitalIn the event this information is protected by the Federal Confidentiality of Alcohol and Drug Abuse Patient Records regulations: The Federal rules restrict any use of the information to criminally investigate or prosecute any alcohol or drug abuse patient.[facility] HospitalIn the event this information is protected by the Federal Confidentiality of Alcohol and Drug Abuse Patient Records regulations: The Federal rules restrict any use of the information to criminally investigate or prosecute any alcohol or drug abuse patient.[facility] HospitalIn the event this information is protected by the Federal Confidentiality of Alcohol and Drug Abuse Patient Records regulations: The Federal rules restrict any use of the information to criminally investigate or prosecute any alcohol or drug abuse patient.[facility] HospitalIn the event this information is protected by the Federal Confidentiality of Alcohol and Drug Abuse Patient Records regulations: The Federal rules restrict any use of the information to criminally investigate or prosecute any alcohol or drug abuse patient.[facility] HospitalIn the event this information is protected by the Federal Confidentiality of Alcohol and Drug Abuse Patient Records regulations: The Federal rules restrict any use of the information to criminally investigate or prosecute any alcohol or drug abuse patient.[facility] HospitalIn the event this information is protected by the Federal Confidentiality of Alcohol and Drug Abuse Patient Records regulations: The Federal rules restrict any use of the information to criminally investigate or prosecute any alcohol or drug abuse patient.[facility] HospitalIn the event this information is protected by the Federal Confidentiality of Alcohol and Drug Abuse Patient Records regulations: The Federal rules restrict any use of the information to criminally investigate or prosecute any alcohol or drug abuse patient.[facility] HospitalIn the event this information is protected by the Federal Confidentiality of Alcohol and Drug Abuse Patient Records regulations: The Federal rules restrict any use of the information to criminally investigate or prosecute any alcohol or drug abuse patient.[facility] HospitalIn the event this information is protected by the Federal Confidentiality of Alcohol and Drug Abuse Patient Records regulations: The Federal rules restrict any use of the information to criminally investigate or prosecute any alcohol or drug abuse patient.[facility] HospitalIn the event this information is protected by the Federal Confidentiality of Alcohol and Drug Abuse Patient Records regulations: The Federal rules restrict any use of the information to criminally investigate or prosecute any alcohol or drug abuse patient.[facility] HospitalIn the event this information is protected by the Federal Confidentiality of Alcohol and Drug Abuse Patient Records regulations: The Federal rules restrict any use of the information to criminally investigate or prosecute any alcohol or drug abuse patient.[facility] Reason for Visit (unrecogniz ed section and content) Reason Comments Liver Disease Hepatic Steatosis Reason Comments Radiology CT Reason Comments Results Reason Comments Appointment Reason Comments Gastroparesis EGG test Reason Comments Medication Preauthorization Motegrity Reason Comments Consult Reason Comments Medication Preauthorization PA for Ibsre la Specialty Diagnoses / Procedures Referred By Norma kennedy Referred To Contact CT IMAGING Diagnoses Bilious vomiting with nausea Right sided abdominal pain Nausea Procedures CT ABD/PEL WO IVCON CT ABD & P[place] [address] [place] [address] [place] [address] Referral ID Status Reason Start Date Expiration Date V isits Requested Visits Authorized [id number] Closed Auto-Generate d Referral 05/27/2022 06/26/2023 1 1 Reason Comments Patient Update Referral & Records a re in Care Everywhere Reason Comments Event ZIO PATCH Reason Onset Date Comments Palpitations 12/28/2023 Syncope 12/28/2023 Goals (unrecognized section and content) Goals may [...] BE BASED ON THE PRIMARY CLINICAL RECORDS. [facility]. provides no warranty or guarantee of the accuracy or completeness of information in this document.
--- NOTE | 2024-01-10 16:18 | ED.LOWEXI1 ---
HPI HPI - Extremity Injury (Lower) General Chief Complaint: Extremity Injury, Lower Stated Complaint: Lower Extremity Injury Time Seen by Provider: 01/10/24 15:31 Source: patient Mode of arrival: Wheelchair Limitations: no limitations History of Present Illness HPI Narrative: Patient presents to ED complaining of right ankle pain. She was coming down the steps and missed the last couple of steps and fell on her inverted ankle. She did fall all the way down but denies any other injury other than the right ankle and foot. The pain radiates up into the foot. She has swelling on the lateral malleolus. Sensation normal distal pulses. No knee pain. She denies headache or neck pain and did not lose consciousness. Related Data Home Medications ?Medication ?Instructions ?Recorded ?Confirmed albuterol sulfate 90 mcg/actuation 2 inh inhalation Q4H PRN shortness 02/06/23 02/06/23 aerosol inhaler of breath or wheezing alprazolam 0.25 mg tablet 0.25 mg PO BID 02/06/23 02/06/23 bupropion HCl 150 mg tablet,12 hr 150 mg PO BID 02/06/23 02/06/23 sustained-release cariprazine 4.5 mg capsule 4.5 mg PO QPM 02/06/23 02/06/23 (Vraylar) epinephrine 0.3 mg/0.3 mL 0.3 ml subcut Q4H PRN anaphylaxis 02/06/23 02/06/23 injection, auto-injector lisdexamfetamine 50 mg capsule 50 mg PO QDAY 02/06/23 02/06/23 (Vyvanse) hydrocodone 5 mg-acetaminophen 325 1 tab PO Q6H PRN pain 02/28/23 02/28/23 mg tablet ondansetron 4 mg disintegrating 4 mg PO Q8H PRN nausea and vomiting 02/28/23 02/28/23 tablet Previous Rx's ?Medication ?Instructions ?Recorded hydrocodone 5 mg-acetaminophen 325 1 tab PO Q4H PRN pain 4 days #16 02/10/23 mg tablet tabs ibuprofen 800 mg tablet 800 mg PO Q8H PRN pain 14 days #40 02/10/23 tabs oxycodone-acetaminophen 5 mg-325 1 tab PO Q6H #10 tabs 01/10/24 mg tablet (Percocet) Allergies Allergy/AdvReac Type Severity Reaction Status Date / Time cat dander Allergy Verified 02/28/23 08:12 Iodinated Contrast Media Allergy Hives Verified 02/28/23 08:12 Opioid HPI Opioid Management Most Recent Pain and Opioid Data: Last Pain Scale 7 01/10/24 15:51 Review of Systems ROS Status of ROS 10 or more systems reviewed and unremarkable except as noted in history and below [facility] Medical History (Updated 01/10/24 @ 17:38 by Yanely Wright DO) 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 - depression (ICD-10) Ovarian cyst ?N83.209 - Unspecified ovarian cyst, unspecified side (ICD-10) HELLP (hemolytic anemia/elev liver enzymes/low platelets in ) ?O14.20 - HELLP syndrome (HELLP), unspecified trimester (ICD-10) Gestational hypertension ?O13.9 - Gestational [-induced] hypertension without significant proteinuria, unspecified trimester (ICD-10) Dizziness ?R42 - Dizziness and giddiness (ICD-10) Vitamin D deficiency ?E55.9 - Vitamin D deficiency, unspecified (ICD-10) Urinary tract infection ?N39.0 - Urinary tract infection, site not specified (ICD-10) Urinary frequency ?R35.0 - Frequency of micturition (ICD-10) Hypercholesterolemia ?E78.00 - Pure hypercholesterolemia, unspecified (ICD-10) Osteoarthritis, knee ?M17.9 - Osteoarthritis of knee, unspecified (ICD-10) Gastroparesis ?K31.84 - Gastroparesis (ICD-10) GERD (gastroesophageal reflux disease) ?K21.9 - Gastro-esophageal reflux disease without esophagitis (ICD-10) Dysuria ?R30.0 - Dysuria (ICD-10) Enlarged thyroid ?E04.9 - Nontoxic goiter, unspecified (ICD-10) Headache ?R51.9 - Headache, unspecified (ICD-10) Skin pain ?R20.8 - Other disturbances of skin sensation (ICD-10) Sciatica ?M54.30 - Sciatica, unspecified side (ICD-10) Poor concentration ?R41.840 - Attention and concentration deficit (ICD-10) ENGLISH (nonalcoholic steatohepatitis) ?K75.81 - Nonalcoholic steatohepatitis (ENGLISH) (ICD-10) Kidney stones ?N20.0 - Calculus of kidney (ICD-10) Mood swings ?R45.86 - Emotional lability (ICD-10) Sinusitis ?J32.9 - Chronic sinusitis, unspecified (ICD-10) Insomnia ?G47.00 - Insomnia, unspecified (ICD-10) Hypersexuality ?F52.8 - Other sexual dysfunction not due to a substance or known physiological condition (ICD-10) Hyperglycemia ?R73.9 - Hyperglycemia, unspecified (ICD-10) Elevated liver enzymes ?R74.8 - Abnormal levels of other serum enzymes (ICD-10) Dysphagia ?R13.10 - Dysphagia, unspecified (ICD-10) Diverticulitis ?K57.92 - Diverticulitis of intestine, part unspecified, without perforation or abscess without bleeding (ICD-10) Bipolar 1 disorder ?F31.9 - Bipolar disorder, unspecified (ICD-10) Attention deficit hyperactivity disorder ?F90.9 - Attention-deficit hyperactivity disorder, unspecified type (ICD-10) Abnormal involuntary movement ?R25.9 - Unspecified abnormal involuntary movements (ICD-10) Endometriosis ?N80.9 - Endometriosis, unspecified (ICD-10) Dyspareunia Pelvic pain ?R10.2 - Pelvic and perineal pain (ICD-10) History of blood transfusion ?Z92.89 - Personal history of other medical treatment (ICD-10) Anemia ?D64.9 - Anemia, unspecified (ICD-10) PTSD (post-traumatic stress disorder) ?F43.10 - Post-traumatic stress disorder, unspecified (ICD-10) Depression ?F32.A - Depression, unspecified (ICD-10) Anxiety ?F41.9 - Anxiety disorder, unspecified (ICD-10) COVID-19 ?U07.1 - COVID-19 (ICD-10) Asthma ?J45.909 - Unspecified asthma, uncomplicated (ICD-10) Migraine ?G43.909 - Migraine, unspecified, not intractable, without status migrainosus (ICD-10) Heartburn ?R12 - Heartburn (ICD-10) Constipation ?K59.00 - Constipation, unspecified (ICD-10) IBS (irritable bowel syndrome) ?K58.9 - Irritable bowel syndrome without diarrhea (ICD-10) Tachycardia ?R00.0 - Tachycardia, unspecified (ICD-10) Syncope ?R55 - Syncope and collapse (ICD-10) Surgical History (Updated 02/06/23 @ 11:25 by Lindsey Quintero NP) History of esophagogastroduodenoscopy (EGD) ?Z98.890 - Other specified postprocedural states (ICD-10) History of colonoscopy ?Z98.890 - Other specified postprocedural states (ICD-10) History of hysterectomy ?Z90.710 - Acquired absence of both cervix and uterus (ICD-10) History of section ?Z98.891 - History of uterine scar from previous surgery (ICD-10) Family History (Updated 02/06/23 @ 11:25 by Lindsey Quintero NP) Other Family history of diabetes mellitus Family history of hypertension Family history of ovarian cancer Social History Within the past year, how often did you have a drink containing alcohol: 2-4 times a month Smoking status: Former smoker Non-prescribed substance use: denies use 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 Respiratory: Lungs CTA, respirations non labored. Extremities: Swelling and tenderness to the lateral malleolus On the right, patient also reports pain in the medial malleolus on the right. Normal distal pulses and sensation. Patient is able to move her toes. No knee pain Neurological: oriented x 4, LOC appropriate for age. Constitutional Vital Signs, click to edit/add: Last Vital Signs Temp 99.0 F 01/10/24 15:33 Pulse 115 H 01/10/24 15:33 Resp 17 01/10/24 15:33 BP 155/108 H 01/10/24 15:33 Pulse Ox 98 01/10/24 15:33 O2 Del Method Room Air 01/10/24 15:33 Course Vital Signs Vital signs: Vital Signs Temperature 99.0 F 01/10/24 15:33 Pulse Rate 115 H 01/10/24 15:33 Respiratory Rate 17 01/10/24 15:33 Blood Pressure 155/108 H 01/10/24 15:33 Pulse Oximetry 98 01/10/24 15:33 Oxygen Delivery Method Room Air 01/10/24 15:33 Temperature 99.0 F 01/10/24 15:33 Pulse Rate 115 H 01/10/24 15:33 Respiratory Rate 17 01/10/24 15:33 Blood Pressure 155/108 H 01/10/24 15:33 Pulse Oximetry 98 01/10/24 15:33 Oxygen Delivery Method Room Air 01/10/24 15:33 MDM - Extremity Injury (Lower) MDM Narrative Medical decision making narrative: X-ray shows no acute fracture. Soft tissue swelling consistent with a sprain. Carmelo wrap and Aircast were placed on the ankle. Patient was given crutches.Follow-up with orthopedic doctor, return to ED if worsening symptoms. Patient comfortable care plan for home Differential Diagnosis Differential diagnosis: Likely ankle sprain and strain Imaging Data Chest x-ray: Radiologist's impression: ITS Impressions Ankle X-Ray 01/10/24 15:43 IMPRESSION: 1. No acute fracture or dislocation identified. 2. Soft tissue swelling around the ankle. 3. There is a well-corticated ossicle along the lateral malleolus likely related to prior trauma. Electronically authenticated by: JOSE SOLO Date: 01/10/2024 17:42 Foot X-Ray 01/10/24 15:43 IMPRESSION: No fracture or dislocation. Electronically authenticated by: JOSE SOLO Date: 01/10/2024 17:42 Discharge Plan Discharge Chief Complaint: Extremity Injury, Lower Clinical Impression: Ankle sprain Patient Disposition: Home, Self-Care Time of Disposition Decision: 17:08 Condition: Good Mode of Transportation: Private Vehicle Prescriptions / Home Meds: New oxycodone-acetaminophen [Percocet] 5-325 mg tablet 1 tab PO Q6H Qty: 10 0RF No Action albuterol sulfate 90 mcg/actuation HFA aerosol inhaler 2 inh INHALATION Q4H PRN (Reason: shortness of breath or wheezing) alprazolam 0.25 mg tablet 0.25 mg PO BID bupropion HCl 150 mg tablet sustained-release 12 hr 150 mg PO BID Vraylar 4.5 mg capsule 4.5 mg PO QPM epinephrine 0.3 mg/0.3 mL auto-injector 0.3 ml subcut Q4H PRN (Reason: anaphylaxis) lisdexamfetamine [Vyvanse] 50 mg capsule 50 mg PO QDAY ibuprofen 800 mg tablet 800 mg PO Q8H PRN (Reason: pain) 14 Days Qty: 40 0RF hydrocodone-acetaminophen 5-325 mg tablet 1 tab PO Q4H PRN (Reason: pain) 4 Days Qty: 16 0RF ondansetron 4 mg tablet,disintegrating 4 mg PO Q8H PRN (Reason: nausea and vomiting) hydrocodone-acetaminophen 5-325 mg tablet 1 tab PO Q6H PRN (Reason: pain) Print Language: Urdu Instructions: Ankle Sprain (ED) Referrals: GIOVANI HAGEN [Primary Care Provider] - 1 week Keegan Trujillo MD [Physician] - 1 week Discharge Date/Time: 01/10/24 17:48
[2024-01-10 17:11] VITALS: BP 136/98; PULSE 87; O2SAT 96
[2024-01-10 17:45] VITALS: BP 136/98; PULSE 85; O2SAT 96
== END 2024-01-10 17:48 | disposition home or self-care (01) ==
PROVIDERS: Emergency Provider Emergency Medicine; PCP Family Medicine
DX: S93.401A Sprain of unspecified ligament of right ankle, initial encounter (principal); W10.9XXA Fall (on) (from) unspecified stairs and steps, initial encounter; Z87.891 Personal history of nicotine dependence
CPT/HCPCS: 73610; 73630; 99284

== ENCOUNTER 2024-01-12 16:44 | Outpatient (OUT) | payer OTHER, SELFPAY ==
--- NOTE | 2024-01-12 16:48 | XR_ITS ---
The [address] [address] Patient Name: ORION HARPER MRN: [id number] date: 1990 Sex: F Assigned Patient Location: [facility] Current Patient Location: .[facility] Accession/Order Number: [id number] Exam Date: 01/12/2024 16:55 Report Date: 01/17/2024 06:21 At the request of: GIOVANI HAGEN Procedure: XR cervical spine 2-3V EXAMINATION: XR cervical spine 2-3V HISTORY: cervical [id number] , neck pain, numbness in shoulders and fingers COMPARISON: No relevant comparison available. FINDINGS: BONES: No significant spondylosis, scoliosis, fracture, or visible bony lesion. DISC SPACES: No significant disc height narrowing, subluxation, or endplate abnormality. PARASPINOUS: Negative. No paraspinous abnormality is seen. OTHER: Negative. XR/XR cervical spine 2-3V IMPRESSION: 1. No acute abnormality or appreciable degenerative changes. Consider MRI of cervical spine if symptoms persist. Electronically authenticated by: LAURIE CRUZ Date: 01/17/2024 06:21
--- OUTSIDE RECORDS SUMMARY | 2024-01-12 16:57 | XMS_ITS | CCD ---
Author Organization [facility] Care Team Providers [employer] Team Leader Name Role Phone SHIVANI MONTEIRO Referring Unavailable GIOVANI HAGEN Primary Care Unavailable MD Erwin Hylton Attending Provider MD Giovani Hagen Primary Care Provider [phone] Giovani Hagen Primary Care Provider Erwin Hylton Unavailable GIOVANI HAGEN Primary Care Physician [phone] SUREKHA ., DR SIMON Consulting Unavailabl e [...] Primary Care Provider DAKHIL, NOMA Ref[facility] Un[facility] DAKHIL, NOMA Referring Un[facility] Unavailable DAKHIL, NOMA Referring Unavailable [facility] Unavailable MARIA DOLORES COREY Referring Unavailable [facility] Unavailable Asaad, Imad Admitting Unavailable Asaad, Imad Attending Unavailable [facility] Asaad, Imad Admitting Unavailable Asaad, Imad Attending [facility]available [facility] [place] Giovani FRIEDMAN [facility] Care Provider BLOOD, MARY Culver Admitting Unavailable BLOOD, MARY Culver Attending Unavailable JACKSON MONTENEGRO Consulting Unavailable SONIYA PATEL Referring [facility] Unavailable MAKENNA AMAYA Consulting Unavailable Hieu Giovani FRIEDMAN [facility] Primary Care Provider Madhuri MISHRA Attending Unavailable BHAVESH DEJESUS Attending Unavailable SOLO MORA Attending Unavailable GIOVANI HAGEN KARYNYIN Primary Care Unavailable SOLO MORA Referring Unavailable HIEUGIOVANI Mcclellan KARYNYIN Primary Care Unavailable HIEUGIOVANI KARYNBELENY Primary Care Unavailable GIOVANI HAGEN Attending Unavailable GIOVANI HAGEN Attending Unavailable CADE WILCOX Attending Unavailable GIOVANI HAGEN Attending Unavailable GIOVANI HAGEN Attending Unavailable GIOVANI HAGEN Attending Unavailable GIOVANI HAGEN M Attending Unavailable AKUA DU Attending Unavailable Allergies Allergy Classification Reported Allergen(s) Allergy Type Date of Onset Reaction(s) Facility Iodine (and Iodine containting drugs) (2 sources) Iodine Drug Allergy 9 Swelling, Itching [facility] Iohexol (2 sources) Iohexol Drug Allergy 9 Itching [facility] (20 sources) Iodine; Translations: [IODINE] Drug Allergy 9 Swelling, Itching [facility] (20 sources) Iohexol; Translations: [IOHEXOL] Drug Allergy 9 Itching [facility] (1 source) Cat Propensity to adverse reactions anaphylaxis Topmission [facility] [employer] Other (1 source) tree nut, unspecified Propensity to adverse reactions anaphylaxis Topmission [facility] [employer] Other (1 source) peanut allergenic extract Drug Allergy [facility] Repository (1 source) Cat/Feline Product Derivatives Drug allergy (disorder) 3 [facility] Repository (1 source) No Known Medication Allergies; Translations: [No Known Medication Allergies] Propensity to adverse reactions (disorder) [facility] Repository Medications Current Medications Medication [...] capsules by mouth at bedtime Bis Subcit Kqn-Hdacv-Tolsfiwr (PYLERA) 140-125-125 mg per capsule Take 3 capsules by mouth before meals and at bedtime for 10 days. 120 capsule 0 07/04/2022 07/14/2022 Active Comment on above: Take 3 capsules by m outh before meals and at bedtime for 10 days. buPROPion (20 sources) Aminoketone Start: 06-29-2022 Wellbutrin SR Oral, BID Start Date: 06/29/22 Status: Ordered Start: 05-25-2022 End: 12-19-2023 buPROPion [...] Start: 05-01-2019 take 1 capsule by mo [facility] once daily Vraylar 1.5 mg oral capsule 1.5 mg = 1 cap(s), Oral, Daily Start Date: 05/01/19 Status: Ordered End: 12-19-2023 take 1 capsule by mouth once daily cariprazine (VRAYLAR) 4.5 mg capsule Take 4.5 mg by mouth once daily. Active take 1 capsule by mo [facility] once daily cariprazine (VRAYLAR) 3 mg cap Take by mouth once daily. 0 Active Vraylar Active Comment on above: Take by mouth once d aily. 1 capsule. cephalexin 250 mg oral tablet (3 sources) Cephalosporin Antibacterial Start: 12-28-2023 Keflex 250 mg Cap See Instructions, 1 cap po after intercourse to prevent UTI, # 20 cap(s), Refills(s) 2, Pharmacy: [facility]/pharmacy #[id number], 158, cm, 12/28/23 15:24:00 EDT, Height/Length Dosing, 87, kg, 12/28/23 15:24:00 EDT, Weight Dosing Start Date: 12/28/23 Status: Ordered Start: 06-29-2022 take 1 tablet by vanna th twice daily, then take 1 tablet by mouth once daily Keflex 500 mg Cap See Instructions, Take 1 tab by mouth twice a day for 10 days. Then take 1 tab once a day for 30 days., # 50 cap(s), Refills(s) 0, Pharmacy: [facility]/pharmacy #[id number], 158, cm, 06/29/22 8:19:00 EST, [...] doxepin HCl (D OXEPIN ORAL) estrogens, conjugated (snf) 0.625 mg/ml vaginal cream (15 sources) Estrogen [...] 12/19/2023 Discontinued (Other) take 1 capsule by [facility] every twenty-four hours Vyvanse 50 MG [...] Comment on above: TAKE 1 CAPSULE BY MO [facility] EVERY DAY IN THE MORNING FOR 30 [...] FRIEDMAN, Madhuri Kendrick Where: [facility] [phone] Medications What How Much When Instructions Unchanged [...] choosing us for your care. Normal [facility] Urology Office/Clinic Noteon 12-28-2023 Urology Office/Clinic Note Urology Office/Clinic Note Chief Complaint Patient is here for follow up with KUB HPI Staff 1 year with KUB done 11/16/23. Dx: recurrent UTI and kidney stones Patient has been having recurrent UTI's. She does [facility] thru video [employer] and gets abx without [...] UTI, # 20 cap(s), Refills(s) 2, Pharmacy: [facility]/pharmacy #[id number], 158, cm, 12/28/23 15:24:00 EDT, Height/Length Dosing, 87, kg, 12/28/23 15:24:00 EDT, Weight Dosing E&M of Est. Patient Moderate 30-39 Min 94951 2. Kidney stones (N20.0: Calculus of kidney) S/p R ESWL. KUB 06/29/22 at [facility] - negative Metabolic workup 07/08/22 - slightly elevated Na (149), low output volume (1000 mL) KUB 11/16/23 - negative no recent flank pain, gross hematuria, stone passage. continue stone prevention diet repeat imaging 1 yr Ordered: cephalexin, See Instructions, 1 cap po after intercourse to prevent UTI, # 20 cap(s), Refills(s) 2, Pharmacy: [facility]/pharmacy #[id number], 158, cm, 12/28/23 15:24:00 EDT, Height/Length Dosing, 87, kg, 12/28/23 15:24:00 EDT, Weight Dosing E&M of Est. Patient Moderate 30-39 Min 39233 Urnls Dip Stick Auto w/o Microscopy POC 41865 3. Smoker (F17.200: Nicotine dependence, unspecified, uncomplicated) cessation encouraged Ordered: cephalexin, See Instructions, 1 cap po after intercourse to prevent UTI, # 20 cap(s), Refills(s) 2, Pharmacy: [facility]/pharmacy #[id number], 158, cm, 12/28/23 15:24:00 EDT, Height/Length Dosing, 87, kg, 12/28/23 15:24:00 EDT, Weight Dosing E&M of Est. Patient Moderate 30-39 Min 18409 Follow-up With When Contact Information BHAVESH DEJESUS PA-C, URL Within 1 year Additional Instructions: Patient Education Kidney Stones, Yuiw-qd-Meec Problem List/Past Medical History Ongoing Kidney stones [...] Mother. Immunizations Vaccine Date Status Comments SARSCoV2 mRNA(cozfdopop-vczc-ms cros) vac 11/02/2021 Recorded SARS-CoV-2 (COVID-19) mRNA [...] vaccine, inactiva (more content not included)... Normal [facility] Comment on above: Result Comment: Elec tronically Signed By: OLEG OSEI, BHAVESH Patterson\.br\Date and Time Signed: 12/28/23 16:01 EDT ADYon 12-19-2023 CNOV Office Visit (CARDMN ) MEREDITHBELGICA ([id number]) 1990 F Date Time Provider Department 12/19/23 2:45 PM SOLO MORA CARDMN During your visit today, we recorded the following information about you: Pulse Blood pressure Weight Height 94/minute 127/91 85.3 kg 1.575 m Solo Mora MD 12/28/2023 2:49 AM Signed [facility] [place] Meghna Hooker Department of Cardiovascular Medicine SECTION OF CARDIAC PACING and ELECTROPHYSIOLOGY OUTPATIENT VISIT DATE December 19, 2023 OUTPATIENT VISIT TYPE NEW PRIMARY CARE PHYSICIAN: Giovani Hagen MD [address] [place] [address] CHIEF COMPLAINT: Syncope, cardiac evaluation for family [...] had any workup done including Stress Echo, quality assurance monitor chassis or 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 Reports symptoms of palpitations [...] No per (more content not included)... Normal [facility] ECG COMPLETEon 12-19-2023 ECG COMPLETE Ventricular Rate : 8 8 BPM Atrial Rate : 88 BPM P-R Interval : 148 ms QRS Duration : 78 ms Q-T Interval : 380 ms QTC Calculation(Bazett) : 459 ms Calculated P Zebulon : 62 degrees Calculated R Zebulon : 55 degrees Calculated T Zebulon : 38 degrees NORMAL SINUS RHYTHM NORMAL ECG Confirmed by MD BAH HEBA ([id number]) on 12/30/2023 6:45:12 PM NAME : BELGICA HARPER PID : [id number] : 1990 Gender : Female Race : Other ORD : [id number] Procedure Date : Dec 19 2023 13:51:58 Edit Date : Dec 30 2023 18:45:15 Diagnosis: NORMAL SINUS RHYTHM NORMAL ECG Confirmed by MD BAH HEBA ([id number]) on 12/30/2023 6:45:12 PM Test Reason : Location : [facility] : J14 J1-4 Overread By : MD BAH HEBA Edited By : MD BAH HEBA Referred By : , Acquired by : OPALCHELSEY Kelsy [facility] [place] [facility] MEREDITHBELGICA A ([id number]) 1990 F Date Time Provider Department 11/02/23 SOLO MORAIA During your visit today, we recorded the [...] Status:Closed by CRISS MCCRARY on 11/02/23 Normal [facility] Extra Lavender Tubeon 2022 Extra Lavender Tube Normal [facility] Comment on above: Performed By: #### X LAV, LIVP, LIP #### [facility] [address] [place] [address] Patient Account Liaison: Ronald Pearce MD Lipaseon 03-24-2023 Lipase [Catalytic activity/Vol] 260 U/L High 13-60 [facility] Comment on above: Performed By: #### X LAV, LIVP, LIP #### [facility] [address] [place] [address] Patient Account Liaison: Ronald Pearce MD Liver Profileon 03-24-2023 Albumin [Mass/Vol] 3.5 g/dL Normal 3.5-5.2 [facility] Comment on above: Performed By: #### X LAV, LIVP, LIP ####[facility] [address] [place] [address] Lab Director: Ronald Pearce MD Alkaline Phos 321 U/L High 35-104 [facility] Comment on above: Performed By: #### X LAV, LIVP, LIP ####[facility] [address] [place] [address] Lab Director: Ronald Pearce MD ALT [Catalytic activity/Vol] 137 U/L High 5-33 [facility] Comment on above: Performed By: #### X LAV, LIVP, LIP ####[facility] [address] [place] [address] Lab Director: Ronald Pearce MD AST [Catalytic activity/Vol] 60 U/L High <32 [facility] Comment on above: Performed By: #### X LAV, LIVP, LIP ####[facility] [address] [place] [address].[place] [address] Lab Director: Ronald Pearce MD Bilirubin [Mass/Vol] 1.0 mg/dL Normal 0.3-1.2 [facility] Comment on above: Performed By: #### X LAV, LIVP, LIP ####[facility] [address] [facility] [place] [address] Lab Director: Ronald Pearce MD Bilirubin, Indirect 0.4 mg/dL Normal 0.0-1.0 [facility] Comment on above: Performed By: #### X LAV, LIVP, LIP ####[facility] [address] [place] [address].[place] [address] Lab Director: Ronald Pearce MD Bilirubin.indirect [Mass/Vol] 0.6 mg/dL High <0.3 [facility] Comment on above: Performed By: #### X LAV, LIVP, LIP ####[facility] [address] [place] [address].[place] [address] Lab Director: Ronald Pearce MD Protein [Mass/Vol] 5.7 g/dL Low 6.4-8.3 [facility] Comment on above: Performed By: #### X LAV, LIVP, LIP ####[facility] [address] [place] [address] lab Director: Ronald Pearce MD Extra Lavender Tubeon 2022 Extra Lavender Tube Normal [facility] Comment on above: Performed By: #### L IVP, XLAV ####[facility] [address] [place] [address] lab Director: Ronald Pearce MD FL CHOLANGIOGRAM [...] Danny Cole MD 03/23/23 Final result Normal [facility] Liver Profileon 03-23-2023 Albumin [Mass/Vol] 3.5 g/dL Normal 3.5-5.2 [facility] Comment on above: Performed By: #### L IVP, XLAV ####[facility] [address] [facility] [place] [address] Lab Director: Ronald Pearce MD Alkaline Phos 293 U/L High 35-104 [facility] Comment on above: Performed By: #### L IVP, XLAV ####[facility] [address] [place] [address] Lab Director: Ronald Pearce MD ALT [Catalytic activity/Vol] 111 U/L High 5-33 [facility] Comment on above: Performed By: #### L IVP, XLAV ####[facility] [address] [place] [phone] Director: Ronald Pearce MD AST [Catalytic activity/Vol] 43 U/L High <32 [facility] Comment on above: Performed By: #### L IVP, XLAV ####[facility] [address] [place] [phone] Director: Ronald Pearce MD Bilirubin [Mass/Vol] 2.6 mg/dL High 0.3-1.2 [facility] Comment on above: Performed By: #### L IVP, XLAV ####[facility] [address] [place] [address] Lab Director: Ronald Pearce MD Bilirubin, Indirect 0.8 mg/dL Normal 0.0-1.0 [facility] Comment on above: Performed By: #### L IVP, XLAV ####[facility] [address] [place] [address] Lab Director: Ronald Pearce MD Bilirubin.indirect [Mass/Vol] 1.8 mg/dL High <0.3 [facility] Comment on above: Performed By: #### L IVP, XLAV ####[facility] [address] [place] [address] Lab Director: Ronald Pearce MD Protein [Mass/Vol] 5.7 g/dL Low 6.4-8.3 [facility] Comment on above: Performed By: #### L IVP, XLAV ####[facility] [address] [place] [address] Lab Director: Ronald Pearce MD Surgical Pathology Reporton 03-23-2023 Surgical Pathology Report (NOTE) Path Number: [id number] -- Diagnosis -- A. GALLBLADDER AND CONTENTS, [...] lesions or periductal lymph nodes are identified. Ruffling Machine Operator sections 1c. tm SM/tb1:03/24/2023 Microscopic Description Microscopic examination performed. Processing Lab: [address] [address] Interpretation Performed at [address] [address] SURGICAL PATHOLOGY CONSULTATION Patient Name: BELGICA HARPER [facility] Rec: [id number] [facility] ANATOMIC PATHOLOGY [address] [place] [address]. [place], [place] [address] Normal [facility] CBC with Diffon 03-22-2023 Abs. Basophil <0.03 Normal 0.00-0.20 [facility] Comment on above: Performed By: #### C DP, LIP, CMPX #### [facility] [address] [place] [address] Patient Account Liaison: Ronald Pearce MD #### TRIG #### [address] [address] Patient Account Liaison: Elio Marley MD Abs.Imm.Granulocyte 0.03 k/uL Normal 0.00-0.30 [facility] Comment on above: Performed By: #### C DP, LIP, CMPX #### [facility] [address] [place] [address] Patient Account Liaison: Ronald Pearce MD #### TRIG #### [address] [id number] Patient Account Liaison: Elio Marley MD Abs.Neutrophil (Seg) 6.89 k/uL Normal 1.50-8.10 [facility] Comment on above: Performed By: #### C DP, LIP, CMPX #### [facility] [address] [place] [id number] Patient Account Liaison: Ronald Pearce MD #### TRIG #### [address] [address] Patient Account Liaison: Elio Marley MD Basophils/100 WBC (Bld) 0 % Normal 0-2 [facility] Comment on above: Performed By: #### C DP, LIP, CMPX #### [facility] [address] [place] [address] Patient Account Liaison: Ronald Pearce MD #### TRIG #### [address] [address] Patient Account Liaison: Elio Marley MD Eosinophils (Bld) [#/Vol] 0.07 10*3/uL Normal 0.00-0.44 [facility] Comment on above: Performed By: #### C DP, LIP, CMPX #### [facility] [address] [place] [address] Patient Account Liaison: Ronald Pearce MD #### TRIG #### [address] [address] Patient Account Liaison: Elio Marley MD Eosinophils/100 WBC (Bld) 1 % Normal 1-4 [facility] Comment on above: Performed By: #### C DP, LIP, CMPX #### [facility] [address] [place] [address] Patient Account Liaison: Ronald Pearce MD #### TRIG #### [address] [address] Patient Account Liaison: Elio Marley MD Erythrocyte distribution width (RBC) [Ratio] 12.2 % Normal 11.8-14.4 [facility] Comment on above: Performed By: #### C DP, LIP, CMPX #### [facility] [address] [place] [address] Patient Account Liaison: Ronald Pearce MD #### TRIG #### [address] [address] Patient Account Liaison: Elio Marley MD Hematocrit (Bld) [Volume fraction] 36.9 % Normal 36.3-47.1 [facility] Comment on above: Performed By: #### C DP, LIP, CMPX #### [facility] [address] [place] [address] Patient Account Liaison: Ronald Pearce MD #### TRIG #### [address] [address] Patient Account Liaison: Elio Marley MD Hemoglobin (Bld) [Mass/Vol] 12.1 g/dL Normal 11.9-15.1 [facility] Comment on above: Performed By: #### C DP, LIP, CMPX #### [facility] [address] [place] [address] Patient Account Liaison: Ronald Pearce MD #### TRIG #### [address] [address] Patient Account Liaison: Elio Marley MD Immature granulocytes/100 WBC (Bld) 0 % Normal 0 [facility] Comment on above: Performed By: #### C DP, LIP, CMPX #### [facility] [address] [place] [address] Patient Account Liaison: Ronald Pearce MD #### TRIG #### [address] [address] Patient Account Liaison: Elio Marley MD Lymphocytes (Bld) [#/Vol] 1.62 10*3/uL Normal 1.10-3.70 [facility] Comment on above: Performed By: #### C DP, LIP, CMPX #### [facility] [address] [place] [address] Patient Account Liaison: Ronald Pearce MD #### TRIG #### [address] [address] Patient Account Liaison: Elio Marley MD Lymphocytes/100 WBC (Bld) 18 % Low 24-43 [facility] Comment on above: Performed By: #### C DP, LIP, CMPX #### [facility] [address] [place] [address] Patient Account Liaison: Ronald Pearce MD #### TRIG #### [address] [address] Patient Account Liaison: Elio Marley MD MCH (RBC) [Entitic mass] 32.5 pg Normal 25.2-33.5 [facility] Comment on above: Performed By: #### C DP, LIP, CMPX #### [facility] [address] [place] [address] Patient Account Liaison: Ronald Pearce MD #### TRIG #### [address] [address] Patient Account Liaison: Elio Marley MD MCHC (RBC) [Mass/Vol] 32.8 g/dL Normal 28.4-34.8 [facility] Comment on above: Performed By: #### C DP, LIP, CMPX #### [facility] [address] [place] [address] Patient Account Liaison: Ronald Pearce MD #### TRIG #### [address] [address] Patient Account Liaison: Elio Marley MD MCV (RBC) [Entitic vol] 99.2 fL Normal 82.6-102.9 [facility] Comment on above: Performed By: #### C DP, LIP, CMPX #### [facility] [address] [place] [address] Patient Account Liaison: Ronald Pearce MD #### TRIG #### [place] [address] Patient Account Liaison: Elio Marley MD Monocytes (Bld) [#/Vol] 0.57 10*3/uL Normal 0.10-1.20 [facility] Comment on above: Performed By: #### C DP, LIP, CMPX #### [facility] [address] [place] [address] Patient Account Liaison: Ronald Pearce MD #### TRIG #### [address] [address] Patient Account Liaison: Elio Marley MD Monocytes/100 WBC (Bld) 6 % Normal 3-12 [facility] Comment on above: Performed By: #### C DP, LIP, CMPX #### [facility] [address] [place] [address] Patient Account Liaison: Ronald Pearce MD #### TRIG #### [address] [address] Patient Account Liaison: Elio Marley MD Neutrophil (Seg) 75 % High 36-65 [facility] Comment on above: Performed By: #### C DP, LIP, CMPX #### [facility] [address] [place] [address] Patient Account Liaison: Ronald Pearce MD #### TRIG #### [address] [address] Patient Account Liaison: Elio Marley MD NRBC Automated 0.0 per 100 WBC Normal 0.0 [facility] Comment on above: Performed By: #### C DP, LIP, CMPX #### [facility] [address] [place] [address] Patient Account Liaison: Ronald Pearce MD #### TRIG #### [address] [address] Patient Account Liaison: Elio Marley MD Platelet mean volume (Bld) [Entitic vol] 10.7 fL Normal 8.1-13.5 [facility] Comment on above: Performed By: #### C DP, LIP, CMPX #### [facility] [address] [place] [address] Patient Account Liaison: Ronald Pearce MD #### TRIG #### [address] [address] Patient Account Liaison: Elio Marley MD Platelets (Bld) [#/Vol] 188 10*3/uL Normal 138-453 [facility] Comment on above: Performed By: #### C DP, LIP, CMPX #### [facility] [address] [place] [address] Patient Account Liaison: Ronald Pearce MD #### TRIG #### [address] [address] Patient Account Liaison: Elio Marley MD RBC (Bld) [#/Vol] 3.72 10*6/uL Low 3.95-5.11 [facility] Comment on above: Performed By: #### C DP, LIP, CMPX #### [facility] [address] [place] [address] Patient Account Liaison: Ronald Pearce MD #### TRIG #### [address] [address] Patient Account Liaison: Elio Marley MD WBC (Bld) [#/Vol] 9.2 10*3/uL Normal 3.5-11.3 [facility] Comment on above: Performed By: #### C DP, LIP, CMPX #### [facility] [address] [place] [address] Patient Account Liaison: Ronald Pearce MD #### TRIG #### [address] [address] Patient Account Liaison: Elio Marley MD Comp Metabolic Pr/rfx MGon 1 05-22-2022 Albumin [Mass/Vol] 3.5 g/dL Normal 3.5-5.2 [facility] Comment on above: Performed By: #### C DP, LIP, CMPX #### [facility] [facility] [address] [place] [address] Patient Account Liaison: Ronald Pearce MD #### TRIG #### [address] [address] Patient Account Liaison: Elio Marley MD Alkaline Phos 157 U/L High 35-104 [facility] Comment on above: Performed By: #### C DP, LIP, CMPX #### [facility] [address] [place] [address] Patient Account Liaison: Ronald Pearce MD #### TRIG #### [address] [address] Patient Account Liaison: Elio Marley MD ALT [Catalytic activity/Vol] 131 U/L High 5-33 [facility] Comment on above: Performed By: #### C DP, LIP, CMPX #### [facility] [address] [place] [address] Patient Account Liaison: Ronald Pearce MD #### TRIG #### [address] [address] Patient Account Liaison: Elio Marley MD Anion gap [Moles/Vol] 11 mmol/L Normal 9-17 [facility] Comment on above: Performed By: #### C DP, LIP, CMPX #### [facility] [address] [place] [address] Patient Account Liaison: Ronald Pearce MD #### TRIG #### [address] [address] Patient Account Liaison: Elio Marley MD AST [Catalytic activity/Vol] 34 U/L High <32 [facility] Comment on above: Performed By: #### C DP, LIP, CMPX #### [facility] [address] [place] [address] Patient Account Liaison: Ronald Pearce MD #### TRIG #### [address] [address] Patient Account Liaison: Elio Marley MD Bilirubin [Mass/Vol] 1.9 mg/dL High 0.3-1.2 [facility] Comment on above: Performed By: #### C DP, LIP, CMPX #### [facility] [address] [place] [address] Patient Account Liaison: Ronald Pearce MD #### TRIG #### [address] [address] Patient Account Liaison: Elio Marley MD BUN/CRE Ratio 17 Normal 9-20 [facility] Comment on above: Performed By: #### C DP, LIP, CMPX #### [facility] [address] [place] [address] Patient Account Liaison: Ronald Pearce MD #### TRIG #### [address] [address] Patient Account Liaison: Elio Marley MD Calcium [Mass/Vol] 8.1 mg/dL Low 8.6-10.4 [facility] Comment on above: Performed By: #### C DP, LIP, CMPX #### [facility] [address] [place] [address] Patient Account Liaison: Ronald Pearce MD #### TRIG #### [address] [address] Patient Account Liaison: Elio Marley MD Chloride [Moles/Vol] 105 mmol/L Normal 98-107 [facility] Comment on above: Performed By: #### C DP, LIP, CMPX #### [facility] [address] [place] [address] Patient Account Liaison: Ronald Pearce MD #### TRIG #### [address] [address] Patient Account Liaison: Elio Marley MD CO2 [Moles/Vol] 21 mmol/L Normal 20-31 [facility] Comment on above: Performed By: #### C DP, LIP, CMPX #### [facility] [address] [place] [address] Patient Account Liaison: Ronald Pearce MD #### TRIG #### [address] [address] Patient Account Liaison: Elio Marley MD Creatinine [Mass/Vol] 0.6 mg/dL Normal 0.5-0.9 [facility] Comment on above: Performed By: #### C DP, LIP, CMPX #### [facility] [address] [place] [address] Patient Account Liaison: Ronald Pearce MD #### TRIG #### [address] [address] Patient Account Liaison: Elio Marley MD GFR/1.73 sq M.predicted among non-blacks MDRD (S/P/Bld) [Vol rate/Area] mL/min/{1.73_m2} Normal >60 [facility] Comment on above: Result Comment: These [...] By: #### C DP, LIP, CMPX #### [facility] [address] [place] [address] Patient Account Liaison: Ronald Pearce MD #### TRIG #### [address] [address] Patient Account Liaison: Elio Marley MD Glucose [Mass/Vol] 75 mg/dL Normal 70-99 [facility] Comment on above: Performed By: #### C DP, LIP, CMPX #### [facility] [address] [place] [address] Patient Account Liaison: Ronald Pearce MD #### TRIG #### [address] [address] Patient Account Liaison: Elio Marley MD Potassium [Moles/Vol] 4.0 mmol/L Normal 3.7-5.3 [facility] Comment on above: Performed By: #### C DP, LIP, CMPX #### [facility] [address] [place] [address] Patient Account Liaison: Ronald Pearce MD #### TRIG #### [address] [address] Patient Account Liaison: Elio Marley MD Protein [Mass/Vol] 5.7 g/dL Low 6.4-8.3 [facility] Comment on above: Performed By: #### C DP, LIP, CMPX #### [facility] [place] [address] Patient Account Liaison: Ronald Pearce MD #### TRIG #### [address] [address] Patient Account Liaison: Elio Marley MD Sodium [Moles/Vol] 137 mmol/L Normal 135-144 [facility] Comment on above: Performed By: #### C DP, LIP, CMPX #### [facility] [address] [place] [address] Patient Account Liaison: Ronald Pearce MD #### TRIG #### [address] [address] Patient Account Liaison: Elio Marley MD Urea nitrogen [Mass/Vol] 10 mg/dL Normal 6-20 [facility] Comment on above: Performed By: #### C DP, LIP, CMPX #### [facility] [address] [place] [address] Patient Account Liaison: Ronald Pearce MD #### TRIG #### [facility] [address] [place] [address] Patient Account Liaison: Elio Marley MD K (Potassium)on 03-22-2023 Potassium [Moles/Vol] 3.8 mmol/L Normal 3.7-5.3 [facility] Comment on above: Performed By: #### K #### [facility] [address] [place] [address] Patient Account Liaison: Ronald Pearce MD Lipaseon 03-22-2023 Lipase [Catalytic activity/Vol] 198 U/L High 13-60 [facility] Comment on above: Performed By: #### C DP, LIP, CMPX #### [facility] [address] [place] [address] Patient Account Liaison: Ronald Pearce MD #### TRIG #### [address] [address] Patient Account Liaison: Elio Marley MD MRI ABDOMEN WO CONTRAST [...] Daniel Hooker MD 03/22/23 Final result Normal [facility] Triglycerideson 03-22-2023 Triglyceride [Mass/Vol] 102 mg/dL Normal 0-149 [facility] Comment on above: Result Comment: Triglyceride Guidelines: <150 Desirable 150-199 Borderline 200-499 High >499 Very high Based on AHA Guidelines for fasting triglyceride, January 2012. Performed By: #### C DP, LIP, CMPX #### [facility] [address] [place] [address] Patient Account Liaison: Ronald Pearce MD #### TRIG #### [facility] [employer] [address] [place], [place] [id number] Patient Account Liaison: MD Lincoln Gordillo 03-20-2023 HUYEN Telephone (FVPRAD) BELGICA HARPER ([id number]) 1990 F Date Time Provider Department 03/20/23 LAWRENCE CAMPUZANO FVNAOMIED During your visit today, we recorded the [...] Status:Closed by LAWRENCE CAMPUZANO on 03/20/23 Normal [facility] DENY Antinuclear Antibodieson 10-26-2022 Antinuclear Abs, IFA Negative Normal . [facility] Comment on above: Order Comment: Reaso n for Exam Elevated liver enzymes Result Comment: Nega tive <1:80 Borderline 1:80 Positive >1:80 ICAP nomenclature: AC-0 For more information about Hep-2 cell patterns use ANApatterns.org, the official website for the International Consensus on Antinuclear Antibody (DENY) Patterns (ICAP). Performed at: [facility] [id number] Patient Account Liaison: Demarcus Moreno PhD, Phone: [phone] Performed By: #### A NA, HEMOCHROM, IGG, MITOM2, ALPHA PHEN, HAABT, SMAB, CERULOP, L-K MICRO #### [facility] , #### CONSTANTINO #### [facility] [address] Crolx-9-Qdfhpkvhavk Phenotyp kwasi 10-26-2022 Alpha 1 Anti-Trypsin 121 mg/dL Normal 100-188 [facility] Comment on above: Order Comment: Reaso n for Exam Elevated liver enzymes Performed By: #### A NA, HEMOCHROM, IGG, MITOM2, ALPHA PHEN, HAABT, SMAB, CERULOP, L-K MICRO #### [facility] , #### CONSTANTINO #### [facility] [address] Phenotype (P1) MM Normal . [facility] Comment on above: Order Comment: [...] Ranges used to confirm phenotype. Performed at: [address] [id number] Patient Account Liaison: Demarcus Moreno PhD, Phone: [phone] Performed at: [address] [id number] Patient Account Liaison: Yuli Callejas MD, Phone: [phone] Performed By: #### A NA, HEMOCHROM, IGG, MITOM2, ALPHA PHEN, HAABT, SMAB, CERULOP, L-K MICRO #### [facility] , #### CONSTANTINO #### [address] Ceruloplasminon 10-26-2022 Ceruloplasmin 27.2 mg/dL Normal 19.0-39.0 [facility] Comment on above: Order Comment: Reaso n for Exam Elevated liver enzymes Result Comment: Perf ormed at: [address] [id number] Patient Account Liaison: Demarcus Moreno PhD, Phone: [phone] PERFORMED BY: [place] [address] PATHOLOGIST GRILL PREP COOK ILIANA CAMP M.D. Performed By: #### A NA, HEMOCHROM, IGG, MITOM2, ALPHA PHEN, HAABT, SMAB, CERULOP, L-K MICRO #### [facility] , #### CONSTANTINO #### [address] Ferritinon 10-26-2022 Ferritin [Mass/Vol] 106.5 ng/mL Normal 11.0-306.8 [facility] Comment on above: Order Comment: pt is fasting Reason for Exam Elevated liver enzymes Result Comment: PERF ORMED BY: [place] [address] PATHOLOGIST GRILL PREP COOK ILIANA CAMP M.D. Performed By: #### A NA, HEMOCHROM, IGG, MITOM2, ALPHA PHEN, HAABT, SMAB, CERULOP, L-K MICRO #### [facility] , #### CONSTANTINO #### [facility] [address] [place] [address] Ferritin [Mass/volume] in Se rum or PlasmaOrdered By: Erwin Hylton on 10-26-2022 Ferritin [Mass/Vol] 106.5 ng/mL 11.0-306.8 [facility] Hepatitis A Antibody Totalon 10-26-2022 Hepatitis A Antibody Total Negative Normal Negative [facility] Comment on above: Order Comment: Reaso n for Exam Elevated liver enzymes Result Comment: Perf ormed at: - [facility] [address] [id number] Patient Account Liaison: Demarcus Moreno PhD, Phone: [phone] PERFORMED BY: [place] [address] PATHOLOGIST GRILL PREP COOK ILIANA CAMP M.D. Performed By: #### A NA, HEMOCHROM, IGG, MITOM2, ALPHA PHEN, HAABT, SMAB, CERULOP, L-K MICRO #### [facility] , #### CONSTANTINO #### [facility] [address] [place] [address] [place] Hereditary Hemochromatosis,D NAon 10-26-2022 Hereditary Hemochromatosis Normal . [facility] Comment on above: Order Comment: Reaso n for Exam Elevated liver enzymes Result Comment: Resu lt: c.845G>A (p.Rje818Ymc) - Not Detected c.187C>G (p.Esv61Wsn) - Not Detected c.193A>T (p.Giw61Kop) - Not Detected Not associated with increased [...] for patients who are homozygous for c.845G>A (p.Dra634Hvo) and have yet to experience clinical symptoms. Comments: The most common HFE variants associated with hereditary hemochromatosis are c.845G>A (p.Pwc712Iwt), c.187C>G (p.Uqm20Vio), c.193A>T (p.Ira34Ebe). While patients homozygous for c.845G>A (p.Tag833Llp) are the most likely to present clinical symptoms, less than 10% develop clinically significant iron overload with tissue and organ damage. Genetic counseling is recommended to discuss the potential clinical implications of positive results, as well as recommendations for testing family members. Genetic Coordinators are available for health care providers to discuss results at [phone]). Test Details: Three variants analyzed: c.845G>A (p.Hqb394Lzf), commonly referred to as C282Y c.187C>G (p.Rbe15Mdc), commonly referred to as H63D c.193A>T (p.Giw51Xsm), commonly referred to as S65C Methods/Limitations: DNA [...] developed and its performance characteristics determined by [employer]. It has not been cleared or approved by the Food and Drug Administration. References: Brodie BR, Yoav PC, Deborah KV, Raymond LW, Ramsey ; [employer] Association for the Study of Liver Diseases. Diagnosis and management of hemochromatosis: 2011 practice guideline by the [employer] the [employer] of Liver Diseases. Hepatology. 2011 Oct;54(1):328-43. doi: 10.1002/hep.17215. PMID: 36456122; PMCID: [id number]. Cora G, Olegario P, Fabio DW, Tabatha H, Love O, Zev S, Vazquez I, Kofi M, Sunitha S. [facility] best practice guidelines for the molecular genetic diagnosis of hereditary hemochromatosis (HH). Eur J Hum Margaret. 2016 Jul;24(4):479-95. doi: 10.1038/ejhg.2015.128. Epub 2014Oct 29. PMID: 39289114; PMCID: [id number]. Performed By: #### A NA, HEMOCHROM, IGG, MITOM2, ALPHA PHEN, HAABT, SMAB, CERULOP, L-K MICRO #### [facility] , #### [place] #### [place] [address] [place] Reviewed by: Dm Reyna, PhD Normal . [facility] Comment on above: Order Comment: Reaso n for Exam Elevated liver enzymes Result Comment: Perf ormed at: TG - [facility] [address] [facility], [place], [place] [id number] Patient Account Liaison: Vivian Kelley [facility], Phone: [phone] PERFORMED BY: [place] [address] PATHOLOGIST GRILL PREP COOK ILIANA CAMP M.D. Performed By: #### A NA, HEMOCHROM, IGG, MITOM2, ALPHA PHEN, HAABT, SMAB, CERULOP, L-K MICRO #### [facility] , #### CONSTANTINO #### [facility] [address] [place] [address] Immunoglobulin Harvey 3 Immunoglobulin G 865 mg/dL Normal 586-1602 [facility] Comment on above: Order Comment: Reaso n for Exam Elevated liver enzymes Result Comment: Perf ormed at: [facility] [id number] Patient Account Liaison: Demarcus Moreno PhD, Phone: [phone] Performed By: #### A NA, HEMOCHROM, IGG, MITOM2, ALPHA PHEN, HAABT, SMAB, CERULOP, L-K MICRO #### [facility] , #### CONSTANTINO #### [facility] [address] [place] [address] Liver-Kidney Microsomal Abon 10-26-2022 Liver-Kidney Microsomal Ab <1.0 Normal 0.0-20.0 [facility] Comment on above: Order Comment: [...] MICRO #### [facility] , #### CONSTANTINO #### [facility] [address] [place] [address] Mitochondrial (M2) Antibodyo n 10-26-2022 Mitochondrial (M2) Antibody <20.0 Normal 0.0-20.0 [facility] Comment on above: Order Comment: Reaso n for Exam Elevated liver enzymes Result Comment: Nega tive 0.0 - 20.0 Equivocal 20.1 - 24.9 Positive >24.9 Mitochondrial (M2) Antibodies are found in 90-96% of patients with primary biliary cirrhosis. Performed at: [facility] [id number] Patient Account Liaison: Demarcus Moreno PhD, Phone: [phone] Performed By: #### A NA, HEMOCHROM, IGG, MITOM2, ALPHA PHEN, HAABT, SMAB, CERULOP, L-K MICRO #### [facility] , #### CONSTANTINO #### [address] Smooth Muscle Antibodyon Smooth Muscle Antibody 4 Normal 0-19 [facility] Comment on above: Order Comment: [...] MICRO #### [facility] , #### CONSTANTINO #### [address] US liveron 10-26-2022 liver [facility] [place] [address] [place] [address] Ultrasound Report Signed Patient: Belgica Harper MR#: [id number] : 1990 Acct:[id number] Age/Sex: 32 / F ADM Date: 10/26/22 Loc: Room: Type: [facility] Attending Dr: Erwin Hylton MD Ordering [...] Perdomo Jr., D.O.10/26/2022 3:24 PM Dictation Location: [place] [address] Tech: Francia Lopez Transcribed By: GRANT 10/26/22 152 Dictated By: Alexandro Perdomo Jr, DO 10/26/22 1523 Signed By: 10/26/22 1524 Normal [facility] ACETYLCHOLINE REC BINDING AB on 10-17-2022 ACETYLCHOLINE BINDING, QUAL Negative Normal Negative [facility] Comment on above: Order Comment: Specmaribel basilio Type: BLOOD SPECIMEN Ordering Facility: [facility] Address: [address] [place] [id number] Result Comment: Anti -acetylcholine receptor binding antibody test is used as an aid in diagnosis of myasthenia gravis. A negative result cannot exclude myasthenia gravis. Clinical correlation is required. Performed By: #### 3 016-3, 1987-08, 2156-09 #### [facility] CLIA [id number] [address] [place] [address] [place] Acetylcholine receptor binding Ab (S) [Moles/Vol] <0.02 Normal <0.21 [facility] Comment on above: Order Comment: Rl basilio Type: BLOOD SPECIMEN Ordering Facility: [facility] Address: [place] [id number] Performed By: #### 3 016-3, 2156-09 #### [facility] CLIA [id number] [address] [place] [address] [place] AMINO ACIDS, PLASMA W/ CONSU LTATIONon 10-17-2022 Alanine [Moles/Vol] 310 umol/L Normal 177-583 [facility] Comment on above: Order Comment: Rl basilio Type: BLOOD SPECIMEN Ordering Facility: [facility] Address: [place] [id number] Performed By: #### 3 016-3, 2156-09 #### [facility] CLIA [id number] [address] [place] [address] [place] Alloisoleucine [Moles/Vol] 2 umol/L Normal 0-2 [facility] Comment on above: Order Comment: Speci men Type: BLOOD SPECIMEN Ordering Facility: [facility] Address: [address] [place] [address] Performed By: #### 3 016-3, 1987-08, 2156-09 #### [facility] CLIA [id number] [facility] [place] [address] [place] Alpha aminoadipate [Moles/Vol] <1 Normal 0-6 [facility] Comment on above: Order Comment: Speci men Type: BLOOD SPECIMEN Ordering Facility: [facility] Address: [address] [place] [address] Performed By: #### 3 016, 2156-09 #### [facility] CLIA [id number] [address] [facility] [place], [place] [address] [place] [address] OF [facility] AMINO ACID CONSULTATION, PLASMA Normal [facility] Comment on above: Order Comment: Speci men Type: BLOOD SPECIMEN Ordering Facility: [facility] Address: [address] [place] [address] Result Comment: This plasma amino acid analysis shows no significant abnormalities. Reference intervals from Isacc E, Len MG, Kate FANTASMA, and Christopher DK: Biochemical Genetics: A Laboratory Manual, Copyright 1989 by [employer] Reference intervals not established for some amino acids. This test was developed and its performance characteristics determined by [facility] Medicine [place] ([facility]). It has not been cleared or approved by the FDA. -[facility] is regulated under CLIA as qualified to perform high complexity testing. This test is used for clinical purposes. It should not be regarded as investigational or for research. Performed By: #### 3 016-3, 2156-09 #### [facility] CLIA [id number] [address] [place] [address] [facility] AMINO ACIDS REVIEW, PLASMA Reviewed by Patrick Proctor MD, Ph.D ([id number]) [facility] Comment on above: Order Comment: Speci men Type: BLOOD SPECIMEN Ordering Facility: [facility] Address: [address] Performed By: #### 3 016-3, 2156-09 #### [facility] CLIA [id number] [address] [place] [address] [place] Arginine [Moles/Vol] 77 umol/L Normal 15-128 [facility] Comment on above: Order Comment: Speci men Type: BLOOD SPECIMEN Ordering Facility: [facility] Address: [address] [place] [address] Performed By: #### 3 016-3, 2156-09 #### [facility] CLIA [id number] [address] [place] [address] [place] Asparagine [Moles/Vol] 44 umol/L Normal 35-74 [facility] Comment on above: Order Comment: Speci men Type: BLOOD SPECIMEN Ordering Facility: [facility] Address: [address] [place] [address] Performed By: #### 3 016, 2156-09 #### [facility] CLIA [id number] [address] [place] [address] [place] Aspartate [Moles/Vol] 2 umol/L Normal 1-25 [facility] Comment on above: Order Comment: Speci men Type: BLOOD SPECIMEN Ordering Facility: [facility] Address: [address] [place] [address] Performed By: #### 3 0163, 2156-09 #### [facility] CLIA [id number] [address] [place] [address] [place] Citrulline [Moles/Vol] 25 umol/L Normal 12-55 [facility] Comment on above: Order Comment: Speci men Type: BLOOD SPECIMEN Ordering Facility: [facility] Address: [address] [place] [address] Performed By: #### 3 016-3, 2156-09 #### [facility] CLIA [id number] [address] [place] [address] [place] Cystine [Moles/Vol] 33 umol/L Normal 5-82 [facility] Comment on above: Order Comment: Speci men Type: BLOOD SPECIMEN Ordering Facility: [facility] Address: [address] [place] [address] Performed By: #### 3 016-3, 1987-08, 2156-09 #### [facility] CLIA [id number] [address] [place] [address] [place] Glutamate [Moles/Vol] 31 umol/L Normal 10-131 [facility] Comment on above: Order Comment: Speci men Type: BLOOD SPECIMEN Ordering Facility: [facility] Address: [address] [place] [address] Performed By: #### 3 016-3, 1987-08, 2156-09 #### [facility] CLIA [id number] [address] [place] [address] [place] Glutamine [Moles/Vol] 652 umol/L Normal 205-756 [facility] Comment on above: Order Comment: Speci men Type: BLOOD SPECIMEN Ordering Facility: [facility] Address: [address] [place] [address] Performed By: #### 3 016-3, 1987-08, 2156-09 #### [facility] CLIA [id number] [address] [place] [address] [place] Glycine [Moles/Vol] 351 umol/L Normal 151-490 [facility] Comment on above: Order Comment: Speci men Type: BLOOD SPECIMEN Ordering Facility: [facility] Address: [address] Performed By: #### 3 016-3, 1987-08, 2156-09 #### [facility] CLIA [id number] [address] [place] [address] [place] Histidine [Moles/Vol] 82 umol/L Normal 72-124 [facility] Comment on above: Order Comment: Speci men Type: BLOOD SPECIMEN Ordering Facility: [facility] Address: [address] [place] [address] Performed By: #### 3 016-3, 2156-09 #### [facility] CLIA [id number] [address] [place] [address] [place] Hydroxylysine [Moles/Vol] <1 High <=0 [facility] Comment on above: Order Comment: Speci men Type: BLOOD SPECIMEN Ordering Facility: [facility] Address: [address] [place] [address] Performed By: #### 3 016-3, 2156-09 #### [facility] CLIA [id number] [address] [place] [address] [place] Hydroxyproline [Moles/Vol] 9 umol/L Normal 0-53 [facility] Comment on above: Order Comment: Speci men Type: BLOOD SPECIMEN Ordering Facility: [facility] Address: [address] [place] [address] Performed By: #### 3 3, 2156-09 #### [facility] [place] [id number] [address] [place] [address] [place] Isoleucine [Moles/Vol] 66 umol/L Normal 30-108 [facility] Comment on above: Order Comment: Speci men Type: BLOOD SPECIMEN Ordering Facility: [facility] Address: [address] [place] [address] Performed By: #### 3 016-3, 2156-09 #### [facility] [place] [id number] [address] [place] [address] [place] Leucine [Moles/Vol] 109 umol/L Normal 72-201 [facility] Comment on above: Order Comment: Speci men Type: BLOOD SPECIMEN Ordering Facility: [facility] Address: [address] [place] [address] Performed By: #### 3 016-3, 2156-09 #### [facility] CLIA [id number] [address] [place] [address] [place] Lysine [Moles/Vol] 220 umol/L Normal 116-296 [facility] Comment on above: Order Comment: Speci men Type: BLOOD SPECIMEN Ordering Facility: [facility] Address: [address] Performed By: #### 3 016-3, 2156-09 #### [facility] CLIA [id number] [address] [place] [address] [place] Methionine [Moles/Vol] 20 umol/L Normal 10-42 [facility] Comment on above: Order Comment: Speci men Type: BLOOD SPECIMEN Ordering Facility: [facility] Address: [address] [address] Performed By: #### 3 016-3, 1987-08, 2156-09 #### [facility] IA [id number] [address] [place] [address] [place] Ornithine [Moles/Vol] 64 umol/L Normal 48-195 [facility] Comment on above: Order Comment: Speci men Type: BLOOD SPECIMEN Ordering Facility: [facility] Address: [address] [address] Performed By: #### 3 016-3, 1987-08, 2156-09 #### [facility] IA [id number] [address] [place] [address] [place] Phenylalanine [Moles/Vol] 42 umol/L Normal 35-85 [facility] Comment on above: Order Comment: Speci men Type: BLOOD SPECIMEN Ordering Facility: [facility] Address: [address] Performed By: #### 3 016-3, 1987-08, 2156-09 #### [facility] IA [id number] [address] [place] [address] [place] Proline [Moles/Vol] 187 umol/L Normal 97-329 [facility] Comment on above: Order Comment: Speci men Type: BLOOD SPECIMEN Ordering Facility: [facility] Address: [address] [address] Performed By: #### 3 016-3, 2156-09 #### [facility] IA [id number] [address] [place] [address] [place] [address] [place] Sarcosine [Moles/Vol] <1 High <=0 [facility] Comment on above: Order Comment: Speci men Type: BLOOD SPECIMEN Ordering Facility: [facility] Address: [address] [place] [address] Performed By: #### 3 016-3, 2156-09 #### [facility] IA [id number] [address] [place] [address] [place] Serine [Moles/Vol] 107 umol/L Normal 58-181 [facility] Comment on above: Order Comment: Speci men Type: BLOOD SPECIMEN Ordering Facility: [facility] Address: [address] [place] [address] Performed By: #### 3 3, 2156-09 #### [facility] IA [id number] [address] [place] [address] [place] Taurine [Moles/Vol] 46 umol/L Low 54-210 [facility] Comment on above: Order Comment: Speci men Type: BLOOD SPECIMEN Ordering Facility: [facility] Address: [address] [place], [place] [address] Performed By: #### 3 016-3, 2156-09 #### [facility] IA [id number] [address] [place] [address] [place] Threonine [Moles/Vol] 147 umol/L Normal 60-225 [facility] Comment on above: Order Comment: Speci men Type: BLOOD SPECIMEN Ordering Facility: [facility] Address: [address] [place], [place] [address] Performed By: #### 3 016-3, 2156-09 #### [facility] IA [id number] [address] [place] [address] [place] Tyrosine [Moles/Vol] 51 umol/L Normal 34-112 [facility] Comment on above: Order Comment: Rl basilio Type: BLOOD SPECIMEN Ordering Facility: [facility] Address: [address] Performed By: #### 3 016-3, 2156-09 #### [facility] CLIA [id number] [address] [place] [address] [place] Valine [Moles/Vol] 199 umol/L Normal 119-336 [facility] Comment on above: Order Comment: Rl basilio Type: BLOOD SPECIMEN Ordering Facility: [facility] Address: [address] Performed By: #### 3 016-3, 2156-09 #### [facility] IA [id number] [address] [place] [address] [place] CARNITINE FREE/TOTAL, PLASMA on 10-17-2022 C0 [Moles/Vol] 27 umol/L Normal 22-54 [facility] Comment on above: Order Comment: Rl basilio Type: BLOOD SPECIMEN Ordering Facility: [facility] Address: [address] [place], [place] [address] Performed By: #### C ARNPL #### [facility] CLIA [id number] 9500 [facility] [id number] [place] C0/Total carnitine [Molar fraction] 0.675 Low 0.700-0.900 [facility] Comment on above: Order Comment: Rl basilio Type: BLOOD SPECIMEN Ordering Facility: [facility] Address: [address] Result Comment: NOTE : The determination of [...] determined by the Pathology and Laboratory Medicine [place] at the [facility]. The U.S. Food and Drug Administration has not approved or cleared this test, however, FDA clearance or approval is not currently required for clinical use. Performed By: #### C ARNPL #### [facility] CLIA [id number] [address] [place] [address] [place] Carnitine [Moles/Vol] 40 umol/L Normal 27-68 [facility] Comment on above: Order Comment: Rl basilio Type: BLOOD SPECIMEN Ordering Facility: [facility] Address: [address] [place] [address] Performed By: #### C ARNPL #### [facility] CLIA [id number] [address] [place] [address] [place] CK SerPl-cCncon 10-17-2022 CK [Catalytic activity/Vol] 50 U/L Normal 42-196 [facility] Comment on above: Order Comment: Rl basilio Type: BLOOD SPECIMEN Ordering Facility: [facility] Address: [address] [place], [place] [address] Performed By: #### 3 016-3, 2156-09 #### [facility] IA [id number] [address] [place] [address] [place] CRP SerPl-mCncon 10-17-2022 CRP [Mass/Vol] 0.6 mg/dL Normal <0.9 [facility] Comment on above: Order Comment: Dionicioi men Type: BLOOD SPECIMEN Ordering Facility: [facility] Address: [address] [place] [address] Performed By: #### 3 016-3, 2156-09 #### [facility] CLIA [id number] [address] [place] [address] [place] CYTOKINE PANEL 13, SERUMon 0 10-17-2022 INTERFERON GAMMA <4.2 Normal <=4.2 [facility] Comment on above: Order Comment: Speci men Type: BLOOD SPECIMEN Ordering Facility: [facility] Address: [address] [place] [address] Performed By: #### 3 016-3, 1987-08, 2156-09 #### [facility] CLIA [id number] [address] [place] [address] [place] INTERLEUKIN 1 BETA <6.5 Normal <=6.7 [facility] Comment on above: Order Comment: Speci men Type: BLOOD SPECIMEN Ordering Facility: [facility] Address: [address] [place] [address] Performed By: #### 3 016-3, 1987-08, 2156-09 #### [facility] CLIA [id number] [address] [place] [address] [place] INTERLEUKIN 10 3.2 pg/mL High <=2.8 [facility] Comment on above: Order Comment: Speci men Type: BLOOD SPECIMEN Ordering Facility: [facility] Address: [address] [place] [address] Performed By: #### 3 016-3, 1987-08, 2156-09 #### [facility] CLIA [id number] [address] [place] [address] [place] INTERLEUKIN 12 <1.9 Normal <=1.9 [facility] Comment on above: Order Comment: Speci men Type: BLOOD SPECIMEN Ordering Facility: [facility] Address: [address] [address] Performed By: #### 3 016-3, 1987-08, 2156-09 #### [facility] CLIA [id number] [address] [place] [address] [place] INTERLEUKIN 13 <1.7 Normal <=2.3 [facility] Comment on above: Order Comment: Speci men Type: BLOOD SPECIMEN Ordering Facility: [facility] Address: [address] [address] Performed By: #### 3 016-3, 2156-09 #### [facility] CLIA [id number] [address] [place] [address] [place] INTERLEUKIN 17 <1.4 Normal <=1.4 [facility] Comment on above: Order Comment: Speci men Type: BLOOD SPECIMEN Ordering Facility: [facility] Address: [address] [place] [address] Performed By: #### 3 016-3, 2156-09 #### [facility] CLIA [id number] [address] [place], [place] [address] [place] [address] [place] INTERLEUKIN 2 <2.1 Normal <=2.1 [facility] Comment on above: Order Comment: Speci men Type: BLOOD SPECIMEN Ordering Facility: [facility] Address: [address] [place] [address] Performed By: #### 3 , 2156-09 #### [facility] CLIA [id number] [address] [place] [address] [place] INTERLEUKIN 4 (INT4) <2.2 Normal <=2.2 [facility] Comment on above: Order Comment: Speci men Type: BLOOD SPECIMEN Ordering Facility: [facility] Address: [address] [place] [address] Performed By: #### 3 3, 2156-09 #### [facility] CLIA [id number] [address] [facility] [place] [address] [place] INTERLEUKIN 5 <2.1 Normal <=2.1 [facility] Comment on above: Order Comment: Speci men Type: BLOOD SPECIMEN Ordering Facility: [facility] Address: [address] [place], [place] [address] Performed By: #### 3 016-3, 2156-09 #### [facility] CLIA [id number] [facility] [place] [address] [place] INTERLEUKIN 6 <2.0 Normal <=2.0 [facility] Comment on above: Order Comment: Speci men Type: BLOOD SPECIMEN Ordering Facility: [facility] Address: [address] [address] Performed By: #### 3 , 1987-08, 2156-09 #### [facility] CLIA [id number] [address] [place] [address] [place] INTERLEUKIN 8 <3.0 Normal <=3.0 [facility] Comment on above: Order Comment: Speci men Type: BLOOD SPECIMEN Ordering Facility: [facility] Address: [address] [address] Performed By: #### 3 , 1987-08, 2156-09 #### [facility] CLIA [id number] [address] [place], [place] [address] [place] [address] [place] INTERLEUKIN-2 RECEPTOR 355.4 pg/mL Normal 175.3-858.2 [facility] Comment on above: Order Comment: Speci men Type: BLOOD SPECIMEN Ordering Facility: [facility] Address: [address] [place] [address] Performed By: #### 3 , 2156-09 #### [facility] CLIA [id number] [address] [place], [place] [address] [place] [address] [place] TUMOR NECROSIS FACTOR - ALPHA 1.9 pg/mL Normal <=7.2 [facility] Comment on above: Order Comment: Speci men Type: BLOOD SPECIMEN Ordering Facility: [facility] Address: [address] [place] [address] Result Comment: INTE RPRETIVE INFORMATION: Cytokines Results are used to understand the pathophysiology of immune, infectious, or inflammatory disorders, or may be used for research purposes. This test was developed and its performance characteristics determined by [facility]. It has not been cleared or approved by the US Food and Drug Administration. This test was performed in a CLIA certified laboratory and is intended for clinical purposes. Performed By: [facility] [address] [place] [address] [employer] Refinisher: Terry Jacome MD, PhD Performed By: #### 3 016-3, 2156-09 #### [facility] CLIA [id number] [facility] [place] [address] [place] ESR Westergren method (Bld) [Velocity]on 10-17-2022 ESR (Bld) [Velocity] 5 mm/h Normal 0-20 [facility] Comment on above: Order Comment: Speci men Type: BLOOD SPECIMEN Ordering Facility: [facility] Address: [address] [place] [address] Performed By: #### 4 537-7 #### [facility] CLIA [id number] [address] [facility] [address] [id number] [place] ESTROGEN FRACTION BLon 10-17 ESTRADIOL 238.7 pg/mL Normal [facility] Comment on above: Order Comment: Spec men Type: BLOOD SPECIMEN Ordering Facility: [facility] Address: [address] [place] [address] Result Comment: REFE RENCE INTERVAL: Estradiol by Zoning Engineer For a complete set of all established reference intervals, refer to ltd.[employer]/Tests/Pub/[id number]. This test was developed and its performance characteristics determined by [facility]. It has not been cleared or approved by the [place] Food and Drug Administration. This test was performed in a CLIA certified laboratory and is intended for clinical purposes. Performed By: #### 3 016-3, 2156-09 #### [facility] CLIA [id number] [address] [facility] [place] [address] [place] ESTROGENS TOTAL 354.8 pg/mL Normal [facility] Comment on above: Order Comment: Speci men Type: BLOOD SPECIMEN Ordering Facility: [facility] Address: [address] [place], [place] [address] Result Comment: Refe rence interval of estrogens (pg/mL) Estrone Estradiol Total Estrogens Early follicular <150.0 30.0-100.0 30.0-250.0 Late follicular 100.0-250.0 100.0-400.0 200.0-650.0 Luteal <200.0 50.0-150.0 50.0-350.0 Post-menopausal 3.0-32.0 2.0-21.0 5.0-52.0 REFERENCE INTERVAL: Estrogens Total Calculation For a complete set of all established reference intervals, refer to [employer]/Tests/Pub/[id number]. Performed By: [facility] [address] [place] [address] [employer] Refinisher: Terry Jacome MD, PhD Performed By: #### 3 , 1987-08, 2156-09 #### [facility] CLIA [id number] [address] [place] [address] [place] ESTRONE 116.1 pg/mL Normal [facility] Comment on above: Order Comment: [facility] Type: BLOOD SPECIMEN Ordering Facility: [facility] Address: [address] [place] [address] Result Comment: INTERPRETIVE INFORMATION: Estrone by Zoning Engineer For a complete set of all established reference intervals, refer to [employer]/Tests/Pub/[id number]. This test was developed and its performance characteristics determined by [facility]. It has not been cleared or approved by the [place] Food and Drug Administration. This test was performed in a CLIA certified laboratory and is intended for clinical purposes. Performed By: #### 3 , 1987-08, 2156-09 #### [facility] CLIA [id number] [address] [place] [address] [place] GAD65 Ab Ser-aCncon 10-18-19 23 Glutamate decarboxylase 65 Ab Qn (S) <5.0 Normal <=5.0 [facility] Comment on above: Order Comment: [facility] Type: BLOOD SPECIMEN Ordering Facility: [facility] Address: [address] [place] [address] Result Comment: Anti -glutamic acid decarboxylase antibody [...] Performed By: #### 3 , 2156-09 #### [facility] CLIA [id number] [address] [facility]. [address] Glutamate decarboxylase 65 A b Qn (S)on 10-17-2022 GLUTAMIC ACID DECARBOXYLAS AB QUALITATIVE Negative Normal Negative [facility] Comment on above: Order Comment: Speci [facility] Type: BLOOD SPECIMEN Ordering Facility: [facility] Address: [address] [place] [address] Performed By: #### 3 , 2156-09 #### [facility] CLIA [id number] HbA1c (Bld)on 10-17-2022 Average glucose Estimated from glycated hemoglobin (Bld) [Mass/Vol] 88 mg/dL Normal [facility] Comment on above: Order Comment: [facility] Type: BLOOD SPECIMEN Ordering Facility: [facility] Address: [address] [place] [address] Result Comment: eAG: (Estimated average glucose) is a calculated value from HgbA1c and is account development representative of the average blood glucose level in the last 2-3 month period. Performed By: #### 3 , 2156-09 #### [facility] CLIA [id number] HbA1c (Bld) [Mass fraction] 4.7 % Normal 4.3-5.6 [facility] Comment on above: Order Comment: Speci [facility] Type: BLOOD SPECIMEN Ordering Facility: [facility] Address: [address] [place] [address] Result Comment: [place] Diabetes Association guidelines indicate that patients with HgbA1c in the range 5.7-6.4% are at increased risk for development of diabetes, and intervention by lifestyle modification may be beneficial. HgbA1c greater or equal to 6.5% is considered diagnostic of diabetes. Performed By: #### 3 016, 2156-09 #### [facility] CLIA [id number] OF [facility] IgA SerPl-mCncon 10-17-2022 IgA [Mass/Vol] 169 mg/dL Normal 70-400 [facility] Comment on above: Order Comment: Speci men Type: BLOOD SPECIMEN Ordering Facility: [facility] Address: [address] [place] [address] Performed By: #### 3 016-3, 2156-09 #### [facility] CLIA [id number] OF [place] IgG SerPl-mCncon 10-17-2022 IgG [Mass/Vol] 932 mg/dL Normal 700-1600 [facility] Comment on above: Order Comment: Speci men Type: BLOOD SPECIMEN Ordering Facility: [facility] Address: [address] [place] [address] Performed By: #### 3 016-3, 2156-09 #### [facility] CLIA [id number] OF [place] IgM SerPl-mCncon 10-17-2022 IgM [Mass/Vol] 199 mg/dL Normal 40-230 [facility] Comment on above: Order Comment: Speci men Type: BLOOD SPECIMEN Ordering Facility: [facility] Address: [address] [place] [address] Performed By: #### 3 016-3, 2156-09 #### [facility] CLIA [id number] OF [place] LDH SerPl-cCncon 10-17-2022 LDH [Catalytic activity/Vol] 160 U/L Normal 135-214 [facility] Comment on above: Order Comment: Speci men Type: BLOOD SPECIMEN Ordering Facility: [facility] Address: [address] [place] [address] Performed By: #### 3 016-3, 2156-09 #### [facility] CLIA [id number] [address] [place] [address] [place] ORGANIC ACIDS UR, QUANT W/CO NSULTon 10-17-2022 2-Hydroxyglutarate/C reatinine (U) [Molar ratio] 3.6 umol/mmolCr Normal 0.6-17.7 [facility] Comment on above: Order Comment: Speci men Type: URINE SPECIMEN Ordering Facility: [facility] Address: [address] [place] [address] Performed By: #### L [id number] #### [facility] CLIA [id number] [address] [place] [address] [place] 2-Hydroxyisovalerate /Creatinine (U) [Molar ratio] <0.1 Normal 0.0-0.1 [facility] Comment on above: Order Comment: Speci men Type: URINE SPECIMEN Ordering Facility: [facility] Address: [address] [place] [address] Performed By: #### L [id number] #### [facility] CLIA [id number] [address] [place] [address] [place] 4-Fnwvhz-9-hydroxybu tyrate (C5-OH)/Creatinine (U) [Molar ratio] <0.6 Normal 0.0-1.3 [facility] Comment on above: Order Comment: Speci men Type: URINE SPECIMEN Ordering Facility: [facility] Address: [address] [place] [address] Performed By: #### L [id number] #### [facility] CLIA [id number] [address] [place] [address] [place] 2-Methylbutyrylglyci ne/Creatinine (U) [Molar ratio] 0.4 umol/mmolCr Normal 0.0-0.4 [facility] Comment on above: Order Comment: Speci men Type: URINE SPECIMEN Ordering Facility: [facility] Address: [address] [place] [address] Performed By: #### L [id number] #### [facility] CLIA [id number] [address] [place] [address] [place] 2-Methylcitrate/Crea tinine (U) [Molar ratio] 1.8 umol/mmolCr Normal 1.0-13.9 [facility] Comment on above: Order Comment: Speci men Type: URINE SPECIMEN Ordering Facility: [facility] Address: [address] [place], [place] [address] Performed By: #### L [id number] #### [facility] CLIA [id number] [address] [place] [address] 2-Oxoadipate/Creatin ine (U) [Molar ratio] <1.6 Normal 0.0-3.3 [facility] Comment on above: Order Comment: Speci men Type: URINE SPECIMEN Ordering Facility: [facility] Address: [address] [place], [place] [address] Performed By: #### L [id number] #### [facility] CLIA [id number] [address] [place] [address] 3-Hydroxyglutarate/C reatinine (U) [Molar ratio] 0.0 umol/mmolCr Normal 0.0-0.7 [facility] Comment on above: Order Comment: Speci men Type: URINE SPECIMEN Ordering Facility: [facility] Address: [address] [place], [place] [address] Performed By: #### L [id number] #### [facility] CLIA [id number] [address] [place] [address] 3-Hydroxyisovalerate /Creatinine (U) [Molar ratio] 5.0 umol/mmolCr Normal 2.1-27.3 [facility] Comment on above: Order Comment: Speci men Type: URINE SPECIMEN Ordering Facility: [facility] Address: [address] [place], [place] [address] Performed By: #### L [id number] #### [facility] CLIA [id number] [address] [place] [address] 3-Methylcrotonylglyc ine/Creatinine (U) [Molar ratio] <0.3 Normal <0.3 [facility] Comment on above: Order Comment: Speci men Type: URINE SPECIMEN Ordering Facility: [facility] Address: [address] [place] [address] Performed By: #### L [id number] #### [facility] CLIA [id number] [address] 3-Methylglutaconate/ Creatinine (U) [Molar ratio] 0.7 umol/mmolCr Normal 0.0-2.0 [facility] Comment on above: Order Comment: Speci men Type: URINE SPECIMEN Ordering Facility: [facility] Address: [address] Performed By: #### L [id number] #### [facility] CLIA [id number] [address] [place] [address] OF [facility] 3-Methylglutarate/Cr eatinine (U) [Molar ratio] 0.5 umol/mmolCr Normal 0.0-0.6 [facility] Comment on above: Order Comment: Speci men Type: URINE SPECIMEN Ordering Facility: [facility] Address: [address] [place] [address] Performed By: #### L [id number] #### [facility] CLIA [id number] [address] [place] [address] OF [place] 4-Hydroxyphenylaceta te/Creatinine (U) [Molar ratio] 149.0 umol/mmolCr High 5.7-147.5 [facility] Comment on above: Order Comment: Speci men Type: URINE SPECIMEN Ordering Facility: [facility] Address: [address] [place] [address] Performed By: #### L [id number] #### [facility] CLIA [id number] [address] [place] 4-Hydroxyphenyllacta te/Creatinine (U) [Molar ratio] 4.3 umol/mmolCr Normal 1.3-23.0 [facility] Comment on above: Order Comment: Speci men Type: URINE SPECIMEN Ordering Facility: [facility] Address: [address] Performed By: #### L [id number] #### [facility] CLIA [id number] [address] [place] [address] [place] 4-Hydroxyphenylpyruv ate/Creatinine (U) [Molar ratio] 0.0 umol/mmolCr Normal <=0.0 [facility] Comment on above: Order Comment: Speci men Type: URINE SPECIMEN Ordering Facility: [facility] Address: [address] Performed By: #### L [id number] #### [facility] CLIA [id number] [address] [place] [address] [place] 5-Oxoproline/Creatin ine (U) [Molar ratio] 1.9 umol/mmolCr Normal 0.4-3.1 [facility] Comment on above: Order Comment: Speci men Type: URINE SPECIMEN Ordering Facility: [facility] Address: [address] Performed By: #### L [id number] #### [facility] CLIA [id number] [address] [place] [address] [place] Acetoacetate/Creatin ine (U) [Molar ratio] <0.9 High 0.0-0.5 [facility] Comment on above: Order Comment: Speci men Type: URINE SPECIMEN Ordering Facility: [facility] Address: [address] Performed By: #### L [id number] #### [facility] CLIA [id number] [address] [place] [address] [place] Aconitate/Creatinine (U) [Molar ratio] 14.8 umol/mmolCr Normal 8.5-109.6 [facility] Comment on above: Order Comment: Speci men Type: URINE SPECIMEN Ordering Facility: [facility] Address: [address] Performed By: #### L [id number] #### [facility] CLIA [id number] [address] [place] [address] Adipate/Creatinine (U) [Molar ratio] 3.0 umol/mmolCr Normal 0.3-9.2 [facility] Comment on above: Order Comment: Speci men Type: URINE SPECIMEN Ordering Facility: [facility] Address: [address] Performed By: #### L [id number] #### [facility] [place] [id number] [address] [place] [address] [place] Alpha hydroxybutyrate/Crea tinine (U) [Molar ratio] <1.0 Normal 0.0-2.7 [facility] Comment on above: Order Comment: Speci men Type: URINE SPECIMEN Ordering Facility: [facility] Address: [address] Performed By: #### L [id number] #### [facility] [place] [id number] [address] [place] [address] OF [place] Alpha ketoglutarate/Creati nine (U) [Molar ratio] 4.9 umol/mmolCr Normal 0.2-42.7 [facility] Comment on above: Order Comment: Speci men Type: URINE SPECIMEN Ordering Facility: [facility] Address: [address] [place] [address] Performed By: #### L [id number] #### [facility] CLIA [id number] [address] [place] [address] [place] Benzoate/Creatinine (U) [Molar ratio] <12.2 Normal 0.0-14.6 [facility] Comment on above: Order Comment: Speci men Type: URINE SPECIMEN Ordering Facility: [facility] Address: [address] Performed By: #### L [id number] #### [facility] CLIA [id number] [address] [place] [address] [place] Beta hydroxybutyrate/Crea tinine (U) [Molar ratio] <1.6 Normal 0.1-2.6 [facility] Comment on above: Order Comment: Speci men Type: URINE SPECIMEN Ordering Facility: [facility] Address: [address] [place], [place] [address] Performed By: #### L [id number] #### [facility] CLIA [id number] [address] [place] [address] [place] Butyrylglycine/Creat inine (U) [Molar ratio] 0.0 umol/mmolCr Normal 0.0-0.7 [facility] Comment on above: Order Comment: Speci men Type: URINE SPECIMEN Ordering Facility: [facility] Address: [address] [place], [place] [address] Performed By: #### L [id number] #### [facility] [place] [id number] [address] [place] [address] [place] Creatinine (U) [Mass/Vol] 53.5 mg/dL Normal 42.2-237.9 [facility] Comment on above: Order Comment: Speci men Type: URINE SPECIMEN Ordering Facility: [facility] Address: [address] [place], [place] [address] Performed By: #### L [id number] #### [facility] CLIA [id number] [address] [place] [address] [place] Ethylmalonate/Creati nine (U) [Molar ratio] 1.2 umol/mmolCr Normal 0.5-6.2 [facility] Comment on above: Order Comment: Speci men Type: URINE SPECIMEN Ordering Facility: [facility] Address: [address] [place], [place] [address] Performed By: #### L [id number] #### [facility] CLIA [id number] [address] STATES [place] Fumarate/Creatinine (U) [Molar ratio] 0.9 umol/mmolCr Normal 0.3-2.6 [facility] Comment on above: Order Comment: Speci men Type: URINE SPECIMEN Ordering Facility: [facility] Address: [address] [place], [place] [address] Performed By: #### L [id number] #### [facility] CLIA [id number] [address] [place] [address] [place] Glutarate/Creatinine (U) [Molar ratio] 0.1 umol/mmolCr Normal 0.0-1.4 [facility] Comment on above: Order Comment: Speci men Type: URINE SPECIMEN Ordering Facility: [facility] Address: [address] [place], [place] [address] Performed By: #### L [id number] #### [facility] CLIA [id number] [address] [place] [address] [place] Hexanoylglycine/Crea tinine (U) [Molar ratio] 0.1 umol/mmolCr Normal 0.0-0.1 [facility] Comment on above: Order Comment: Speci men Type: URINE SPECIMEN Ordering Facility: [facility] Address: [address] [place], [place] [address] Performed By: #### L [id number] #### [facility] CLIA [id number] [address] [place] [address] [place] Isobutyrylglycine/Cr eatinine (U) [Molar ratio] 0.6 umol/mmolCr Normal 0.0-1.2 [facility] Comment on above: Order Comment: Speci men Type: URINE SPECIMEN Ordering Facility: [facility] Address: [address] [place], [place] [address] Performed By: #### L [id number] #### [facility] CLIA [id number] [address] [place] [address] [place] Isocitrate/Creatinin e (U) [Molar ratio] 48.3 umol/mmolCr Normal 9.1-271.9 [facility] Comment on above: Order Comment: Speci men Type: URINE SPECIMEN Ordering Facility: [facility] Address: [address] [place], [place] [address] Performed By: #### L [id number] #### [facility] CLIA [id number] [address] STATES [place] Lactate/Creatinine (U) [Molar ratio] 9.8 umol/mmolCr Normal 2.9-47.2 [facility] Comment on above: Order Comment: Speci men Type: URINE SPECIMEN Ordering Facility: [facility] Address: [address] [place], [place] [address] Performed By: #### L [id number] #### [facility] CLIA [id number] [address] [place] [address] [place] Malate/Creatinine (U) [Molar ratio] 0.3 umol/mmolCr Normal 0.0-1.1 [facility] Comment on above: Order Comment: Speci men Type: URINE SPECIMEN Ordering Facility: [facility] Address: [address] [place], [place] [address] Performed By: #### L [id number] #### [facility] CLIA [id number] [address] [place] [address] [place] Malonate/Creatinine (U) [Molar ratio] 0.0 umol/mmolCr Normal 0.0-0.1 [facility] Comment on above: Order Comment: Speci men Type: URINE SPECIMEN Ordering Facility: [facility] Address: [address] Performed By: #### L [id number] #### [facility] CLIA [id number] [address] [place] [address] [place] Methylmalonate/Creat inine (U) [Molar ratio] <0.4 Normal 0.0-0.6 [facility] Comment on above: Order Comment: Speci men Type: URINE SPECIMEN Ordering Facility: [facility] Address: [address] [place] [address] Performed By: #### L [id number] #### [facility] CLIA [id number] [address] [place] [address] [place] Methylsuccinate/Crea tinine (U) [Molar ratio] 0.2 umol/mmolCr Normal 0.0-1.4 [facility] Comment on above: Order Comment: Speci men Type: URINE SPECIMEN Ordering Facility: [facility] Address: [address] [place] [address] Performed By: #### L [id number] #### [facility] CLIA [id number] [address] [place] [address] [place] N-acetylaspartate/Cr eatinine (U) [Molar ratio] 1.6 umol/mmolCr Normal 0.1-8.9 [facility] Comment on above: Order Comment: Speci men Type: URINE SPECIMEN Ordering Facility: [facility] Address: [address] [place] [address] Performed By: #### L [id number] #### [facility] CLIA [id number] [address] [place] [address] [place] N-acetyltyrosine/Cre atinine (U) [Molar ratio] <0.2 Normal 0.0-1.2 [facility] Comment on above: Order Comment: Speci men Type: URINE SPECIMEN Ordering Facility: [facility] Address: [address] [place] [address] Performed By: #### L [id number] #### [facility] CLIA [id number] [address] [place] [address] [place] Oxalate/Creatinine (U) [Molar ratio] <1.0 Normal 0.7-12.4 [facility] Comment on above: Order Comment: Speci men Type: URINE SPECIMEN Ordering Facility: [facility] Address: [address] [place] [id number] Performed By: #### L [id number] #### [facility] CLIA [id number] [address] [place] Pyruvate/Creatinine (U) [Molar ratio] <0.2 Normal 0.1-2.6 [facility] Comment on above: Order Comment: Speci men Type: URINE SPECIMEN Ordering Facility: [facility] Address: [address] Performed By: #### L [id number] #### [facility] CLIA [id number] [address] [place] [address] [place] Sebacate (C8)/Creatinine (U) [Molar ratio] 0.0 umol/mmolCr Normal [facility] Comment on above: Order Comment: Speci men Type: URINE SPECIMEN Ordering Facility: [facility] Address: [address] Performed By: #### L [id number] #### [facility] CLIA [id number] [address] [place] [address] [place] Suberate/Creatinine (U) [Molar ratio] 2.5 umol/mmolCr Normal 0.0-7.4 [facility] Comment on above: Order Comment: Speci men Type: URINE SPECIMEN Ordering Facility: [facility] Address: [address] Performed By: #### L [id number] #### [facility] CLIA [id number] [address] [place] Suberylglycine/Creat inine (U) [Molar ratio] 0.0 umol/mmolCr Normal <=0.0 [facility] Comment on above: Order Comment: Speci men Type: URINE SPECIMEN Ordering Facility: [facility] Address: [address] Performed By: #### L [id number] #### [facility] CLIA [id number] [address] [place] [address] Succinate/Creatinine (U) [Molar ratio] 1.8 umol/mmolCr Normal 0.3-27.4 [facility] Comment on above: Order Comment: Speci men Type: URINE SPECIMEN Ordering Facility: [facility] Address: [address] [place] [address] Performed By: #### L [id number] #### [facility] CLIA [id number] [address] [place] [address] Succinylacetone/Crea tinine (U) [Molar ratio] <0.4 Normal <0.4 [facility] Comment on above: Order Comment: Speci men Type: URINE SPECIMEN Ordering Facility: [facility] Address: [address] [place] [address] Performed By: #### L [id number] #### [facility] CLIA [id number] [address] [place] [address] UOA CONSULTATION Normal [facility] Comment on above: Order Comment: Speci men Type: URINE SPECIMEN Ordering Facility: [facility] Address: [address] [place] [address] Result Comment: This urine organic acid analysis [...] and its performance characteristics determined by the [facility]. It has not been cleared or approved by the US Food and Drug Administration. The FDA had determined that such clearance or approval is not necessary. Performed By: #### L [id number] #### [facility] CLIA [id number] [facility] [place] [address] [place] UOA REVIEW Reviewed by Patrick Proctor MD, Ph.D ([id number]) Normal [facility] Comment on above: Order Comment: Speci men Type: URINE SPECIMEN Ordering Facility: [facility] Address: [address] [place] [address] Performed By: #### L [id number] #### [facility] CLIA [id number] [address] [place] [address] [place] Uracil/Creatinine (U) [Molar ratio] 0.9 umol/mmolCr Normal 0.0-5.1 [facility] Comment on above: Order Comment: Speci men Type: URINE SPECIMEN Ordering Facility: [facility] Address: [address] [place] [address] Performed By: #### L [id number] #### [facility] CLIA [id number] [address] [place] [address] [place] PYRUVATE+LACTATE BLon 2022 Lactate [Moles/Vol] 1.2 mmol/L Normal 0.5-2.2 [facility] Comment on above: Order Comment: Speci men Type: BLOOD SPECIMEN Ordering Facility: [facility] Address: [address] [place] [address] Result Comment: This test was developed and its performance characteristics determined by [facility]'s Fuad Scott [facility] [place] ([facility]). It has not been cleared or approved by the FDA. [facility] is regulated under CLIA as qualified to perform high-complexity testing. This test is used for clinical purposes. It should not be regarded as investigational or for research. Performed By: #### L ACPYR #### [facility] CLIA [id number] [address] [place] [address] [place] Pyruvate (Bld) [Moles/Vol] 0.04 mmol/L Normal 0.03-0.10 [facility] Comment on above: Order Comment: Speci men Type: BLOOD SPECIMEN Ordering Facility: [facility] Address: [address] [place] [address] Result Comment: This test was developed and its performance characteristics determined by [facility]'s Fuad Sonia [facility] [place] ([facility]). It has not been cleared or approved by the FDA. -[facility] is regulated under CLIA as qualified to perform high-complexity testing. This test is used for clinical purposes. It should not be regarded as investigational or for research. Performed By: #### L ACPYR #### [facility] CLIA [id number] [address] [facility] [address] [address] [place] T4 Free SerPl-mCncon 023 Free T4 [Mass/Vol] 1.3 ng/dL Normal 0.9-1.7 Lisa harrell Comment on above: Order Comment: Rl basilio Type: BLOOD SPECIMEN Ordering Facility: [facility] Address: [address] [place], [place] [address] Performed By: #### 3 016-3, 1987-, 2156-09 #### [facility] CLIA [id number] [facility] [place] [address] [place] TSH SerPl-aCncon 10-17-2022 TSH Qn 2.050 m[IU]/L Normal 0.270-4.200 Lisa parry Comment on above: Order Comment: Rl basilio Type: BLOOD SPECIMEN Ordering Facility: [facility] Address: [address] [place] [address] Result Comment: If t he patient is , TSH reference range varies by gestational period: First Trimester (weeks 9-12): 0.180-2.990 mIU/L Second Trimester: 0.110-3.980 mIU/L Third Trimester: 0.480-4.710 mIU/L Olman Rodriguez et al. A Practical Approach for the Verifications and Determination of Site- and Trimester-Specific Reference Intervals for Thyroid Function tests in . Thyroid, 2019:29:3:412-420. Reji E, et al. 2017 Guidelines of the [place] Thyroid [employer] for the Diagnosis and Management of Thyroid Disease during and the . Thyroid, 2017:27:3:315-389. Performed By: #### 3 016-3, 1987-08, 2156-09 #### [facility] CLIA [id number] [address] [place] [address] [place] VOLTAGE GATED CA IGGon 10-17 P/Q-TYPE CALCIUM CHANNEL ANTIBODY 10.1 pmol/L Normal 0.0-24.5 [facility] Comment on above: Order Comment: Speci men Type: BLOOD SPECIMEN Ordering Facility: [facility] Address: [address] [id number] Result Comment: INTE RPRETIVE INFORMATION: P/Q-Type Calcium Channel Antibody 0.0 to 24.5 pmol/L ............. Negative 24.6 to 45.6 pmol/L ............ Indeterminate 45.7 pmol/L or greater.......... Positive This test was developed and its performance characteristics determined by [facility]. It has not been cleared or approved by the US Food and Drug Administration. This test was performed in a CLIA certified laboratory and is intended for clinical purposes. Performed By: [facility] [address] [place] [address] Tank Refinisher: Terry Jacome MD, PhD Performed By: #### 3 -3, 1987-08, 2156-09 #### [facility] CLIA [id number] [address] [place] [id number] [place] VOLTAGE-GATED POTASSIUM VARGAS ABon 10-17-2022 VOLTAGE-GATED POTASSIUM CHANNEL AB, SER 0 pmol/L Normal 0-31 [facility] Comment on above: Order Comment: Speci men Type: BLOOD SPECIMEN Ordering Facility: [facility] Address: [address] [place] [address] Result Comment: INTE RPRETIVE INFORMATION: Voltage-Gated Potassium [...] developed and its performance characteristics determined by [facility]. It has not been cleared or approved by the US Food and Drug Administration. This test was performed in a CLIA certified laboratory and is intended for clinical purposes. Performed By: [facility] [address] [place] [address] Tank Refinisher: Terry Jacome MD, PhD Performed By: #### 3 016-3, 1987-08, 7 #### [facility] CLIA [id number] [facility] [place] [address] [place] NM GASTRIC EMPTYING SOLIDon 09-12-2022 NM GASTRIC EMPTYING SOLID * * *Final Report* * * DATE OF EXAM: Sep 12 2022 2:44PM [facility] [id number] - [place] GASTRIC EMPTYING SOLID / [...] 4 HOURS IS CONSISTENT WITH SEVERE GASTROPARESIS. [place] Seamer: MINAL Transcribe Date/Time: Sep 12 2022 3:02P Dictated by : LUZ MARINA VÁZQUEZ MD This examination was interpreted and the report reviewed and electronically signed by: LUZ MARINA VÁZQUEZ MD on Sep 12 2022 3:05PM EST [id number] [facility] 09-09-2022 CNPN Telephone (AVXRMO) BELGICA HARPER ([id number]) 1990 F Date Time Provider Department 09/09/22 DIEGO RICKS AVXRMT During your visit today, we recorded the [...] Status:Closed by DIEGO RICKS on 09/09/22 Normal [facility] CITRATE URINE 24HRon 023 Citric Acid, U, 24hr 472 mg/24 hr Normal 320-1240 Th [facility] Comment on above: Result Comment: This test was developed and its performance characteristics determined by [facility]. It has not been cleared or approved by the Food and Drug Administration. Performed By: #### A LPHPHN #### [facility] [address] [address] [address] Li Nagel Citric Acid, Urine 472 mg/L Normal Undefined [facility] Comment on above: Performed By: #### A LPHPHN #### [facility] [id number] Li Nagel OXALATE 24HR URINEon 023 Oxalates, Urine 19 mg/L Normal Undefined [facility] Comment on above: Performed By: #### O [id number] #### [facility] [address] [place] [address] Dr. Li Nagel Oxalates, Urine 24hr 19 mg/24 hr Normal 4-31 [facility] Comment on above: Performed By: #### O X24HR #### [facility] [address] [place] [address] Dr. Li Nagel MAGNESIUM 24HR URINEon 07-09 Magnesium 24hr Urine 45.0 mg/24 hr Normal 12.0-293.0 [facility] Comment on above: Performed By: #### I MMUN G #### [facility] [address] [place] [address] Dr. Li Nagel Magnesium UR 4.5 mg/dL Normal Not Estab. [facility] Comment on above: Performed By: #### I MMUN G #### [facility] [address] [place] [address] Dr. Li Nagel PHOSPHORUS 24HR URINEon 06-22 Phosphorus, Urine 51.4 mg/dL Normal Not Estab. [facility] Comment on above: Performed By: #### P HOS 24 #### [facility] [address] [place] [address] Dr. iL Nagel Phosphorus, Urine 24hr 514 mg/24 hr Normal 261-1078 [facility] Comment on above: Performed By: #### P HOS 24 #### [facility] [address] [place] [address] Dr. Li Nagel URIC ACID 24 HR URINEon 06-22 Uric Acid, Urine 64.0 mg/dL Normal Not Estab. The [facility] Comment on above: Performed By: #### A LPHPHN #### [facility] [address] [place] [address] Dr. Li Nagel Uric Acid, Urine 24hr 640.0 mg/24 hr Normal 173.7-902.1 [facility] Comment on above: Performed By: #### A LPHPHN #### [facility] [address] [place] [address] Dr. Li Nagel CALCIUM 24 HR URINEon 2022 CALC, 24 HR UR 155.0 mg/24 hr Normal 100.0-300.0 [facility] Comment on above: Performed By: #### I MMUN G #### [facility] [address] [place] [address] Dr. Li Nagel UR CALCIUM 15.5 mg/dL Normal 5.1-21.0 [facility] Comment on above: Performed By: #### I MMUN G #### [facility] [address] [place] [address] Dr. Li Nagel UR TOT VOL 1000 ml/24 HR Normal [facility] Comment on above: Performed By: #### I MMUN G #### [facility] [address] [place] [address] Dr. Li Nagel Performed By: #### A LPHPHN #### [facility] [address] [place] [address] Dr. Li Nagel CREA 24 HR URINEon 3 CREA, 24 HR UR 1891.80 mg/24 hr Critically high 800.00 -1,800. 00 [facility] Comment on above: Performed By: #### A LPHPHN #### [facility] [address] [place] [address] Dr. Li Nagel URINE CREAT 189.18 mg/dL Normal 20.00-300.00 [facility] Comment on above: Performed By: #### A LPHPHN #### [facility] [address] [place] [address] Dr. Li Nagel PTH INTACTon 07-08-2022 PTH, Intact 41 pg/mL Normal 15-65 [facility] Comment on above: Performed By: #### H EPACUT #### [facility] [address] [place] [address] Dr. Li Nagel SODIUM 24 HR URINEon 07-08- 023 NA, 24 HR UR 149 mmol/24 hr Normal 40-220 [facility] Comment on above: Performed By: #### A LPHPHN #### [facility] [address] [address] [address] Li Nagel Sodium (U) [Moles/Vol] 149 mmol/L Critically high 30-90 [facility] Comment on above: Performed By: #### A LPHPHN #### [facility] [address] [address] [address] Li Nagel BUNon 07-06-2022 Urea nitrogen [Mass/Vol] 11.0 mg/dL Normal 7.0-18.0 [facility] Comment on above: Performed By: #### B UN, URIC, CA, K, NA, CL, CO2, CREA #### [facility] [address] [address] [address] Li Nagel CALCIUMon 07-06-2022 Calcium [Mass/Vol] 9.0 mg/dL Normal 8.5-10.1 [facility] Comment on above: Performed By: #### B UN, URIC, CA, K, NA, CL, CO2, CREA #### [facility] [address] [place] [address] Dr. Li Nagel CHLORIDEon 07-06-2022 Chloride [Moles/Vol] 107 mmol/L Normal 98-107 [facility] Comment on above: Performed By: #### I MMUN G #### [facility] [address] [place] [address] Dr. Li Nagel CO2on 07-06-2022 CO2 [Moles/Vol] 29.2 mmol/L Normal 21.0-32.[address] [facility] Comment on above: Performed By: #### I MMUN G #### [facility] [address] [place] [address] Dr. Li Nagel CREATININEon 07-06-2022 Creatinine [Mass/Vol] 0.97 mg/dL Normal 0.55-1.02 [facility] Comment on above: Performed By: #### B UN, URIC, CA, K, NA, CL, CO2, CREA #### [facility] [address] [place] [address] Dr. Li Nagel EGFR-AF UKRAINIAN >60 Normal >=[address] [facility] Comment on above: Performed By: #### B UN, URIC, CA, K, NA, CL, CO2, CREA #### [facility] [address] [place] [address] Dr. Li Nagel EGFR-NON AF UKRAINIAN >60 Normal >=60 [facility] Comment on above: Performed By: #### B UN, URIC, CA, K, NA, CL, CO2, CREA #### [facility] [address] [place] [address] Dr. Li Nagel NAon 07-06-2022 Sodium [Moles/Vol] 143 mmol/L Normal 136-145 [facility] Comment on above: Performed By: #### I MMUN G #### [facility] [address] [place] [address] Dr. Li Nagel POTASSIUMon 07-06-2022 Potassium [Moles/Vol] 3.6 mmol/L Normal 3.5-5.1 [facility] Comment on above: Performed By: #### I MMUN G #### [facility] [address] [place] [address] Dr. Li Nagel URIC ACID SERUMon 07-06-2022 Urate [Mass/Vol] 4.7 mg/dL Normal 2.6-6.0 [facility] Comment on above: Performed By: #### B UN, URIC, CA, K, NA, CL, CO2, CREA #### [facility] [address] [place] [address] Dr. Li Nagel XR KUB 1 VIEWon [...] ADKINS Date: 2022-06-30 07:02 Normal [facility] US ABD RIGHT UPPER QUADRANTo n 06-15-2022 [...] nephrocalcinosis and a few right renal stones. [place] [facility] Transcribe Date/Time: Jun 16 2022 7:46A Dictated by : MINERVA LIM MD This examination was interpreted and the report reviewed and electronically signed by: MINERVA LIM MD on Jun 16 2022 7:48AM EST [id number] Normal [facility] US ABD RT UPPER QUADRANTon 0 06-15-[address] [facility] [address] ABD/PEL WO IVCONon 2022 Radiology Result ACTIONABLE Abnormal [facility] No [facility]V FRONTAL/LATon XR CHEST [...] tissues: Unremarkable. IMPRESSION: No acute radiographic abnormality. [place] Seamer: [facility] Transcribe Date/Time: May 27 2022 12:39P Dictated by : MARCELA STILL MD This examination was interpreted and the report reviewed and electronically signed by: MARCELA STILL MD on May 27 2022 12:39PM EST [id number] Normal [facility] [id number] PHENOTYP INGon 05-11-2022 Hdsel-6-Tsfmbvktgdv, Serum 130 mg/dL Normal 100-188 [facility] Comment on above: Result Comment: Perf ormed at: CB Performed By: #### A LPHPHN #### [facility] [address] [place] [address] Dr. Li Nagel Phenotype (PI) MM Normal [facility] Comment on above: Result Comment: [...] BN Performed By: #### A LPHPHN #### [facility] [address] [address] [address] Li Nagel HEREDITARY HEMOCHROMATOSIS, DNA ANALYSISon 05-11-2022 Hereditary Hemochromatosis Comment Normal [facility] Comment on above: Result Comment: Resu lt: c.845G>A (p.Iiv045Azp) - Not Detected c.187C>G (p.Qks51Ijo) - Not Detected c.193A>T (p.Wsc77Nqs) - Not Detected Not associated with increased [...] for patients who are homozygous for c.845G>A (p.Xgk975Wbk) and have yet to experience clinical symptoms. . Comments: The most common HFE variants associated with hereditary hemochromatosis are c.845G>A (p.Kmv220Yca), c.187C>G (p.Cia80Kdx), c.193A>T (p.Vhh23Mbo). While patients homozygous for c.845G>A (p.Kvv656Ydu) are the most likely to present clinical symptoms, less than 10% develop clinically significant iron overload with tissue and organ damage. . Genetic counseling is recommended to discuss the potential clinical implications of positive results, as well as recommendations for testing family members. Genetic Coordinators are available for health care providers to discuss results at [phone] ([phone]). . Test Details: Three variants analyzed: c.845G>A (p.Emf366Wpu), commonly referred to as C282Y c.187C>G (p.Gyb06Ceb), commonly referred to as H63D c.193A>T (p.Sbq20Edm), commonly referred to as S65C . Methods/Limitations: [...] developed and its performance characteristics determined by [employer]. It has not been cleared or approved by the Food and Drug Administration. . References: Brodie BR, Yoav PC, Deborah KV, Raymond LW, Ramsey ; [employer] Liver Diseases. Diagnosis and management of hemochromatosis: 2011 practice guideline by the [employer] Liver Diseases. Hepatology. 2010;54(1):328-43. doi: 10.1002/hep.49769. PMID: 39594934; PMCID: PRD2377599. Cora G, Olegario P, Fabio MCDONALD, Tabatha H, Love O, Zev S, Vazquez I, Kofi M, Sunitha S. [facility] best practice guidelines for the molecular genetic diagnosis of hereditary hemochromatosis (HH). Eur J Hum Margaret. 2016 Jul;24(4):479-95. doi: 10.1038/ejhg.2015.128. Epub 2014Oct 29. PMID: 66527492; PMCID: [id number]. . Kenya Hager, PhD, FACMG Dm Reyna, PhD Alexandro Rodriguez, PhD, FACMG Jhony Hammond, PhD, FACMG Oumar Avila, PhD, FACMG Rob Brand, PhD, FACMG Pascale Gracia, PhD, FACMG Lala Marvin, PhD, FACMG Performed By: #### H EPACUT #### [facility] [address] [place] [address] Dr. Li Nagel DENY by IFAon 05-06-2022 Antinuclear Antibodies, IFA Negative Normal [facility] Comment on above: Result Comment: Nega tive <1:80 Borderline 1:80 Positive >1:80 ICAP nomenclature: AC-0 For more information about Hep-2 cell patterns use ANApatterns.org, the official website for the International Consensus on Antinuclear Antibody (DENY) Patterns (ICAP). Performed By: #### A LPHPHN #### [facility] [address] [place] [address] Dr. Li Nagel CERULOPLASMINon 05-05-2022 Ceruloplasmin 27.9 mg/dL Normal 19.0-39.0 [facility] Comment on above: Performed By: #### H EPACUT #### [facility] [address] [place] [address] Dr. Li Nagel HEPATITIS A AB IGMon 023 Hep A Ab, IgM Negative Normal Negative [facility] Comment on above: Performed By: #### I MMUN G #### [facility] [address] [place] [address] Dr. Li Nagel IMMUNOGLOBULIN G INDEX SERUM OR CSFon 05-05-2022 Albumin [Mass/Vol] 4.8 g/dL Normal 3.8-4.8 [facility] Comment on above: Performed By: #### I MMUN G #### [facility] [address] [place] [address] Dr. Li Nagel Albumin, CSF NSPINL Normal [facility] Comment on above: Result Comment: Test not performed. No spinal fluid received. contacted Radha at your facility on 05-05-2022 Performed By: #### I MMUN G #### [facility] [address] [place] [address] Dr. Li Nagel CSF IgG Index UPTCAL Normal [facility] Comment on above: Result Comment: Unab le to calculate result since non-numeric result obtained for component test. Performed By: #### I MMUN G #### [facility] [address] [place] [address] Dr. Li Nagel IgG, Quant, CSF NSPINL Normal [facility] Comment on above: Result Comment: Test not performed. No spinal fluid received. contacted Radha at your facility on 05-05-2022 Performed By: #### I MMUN G #### [facility] [address] [address] [address] Li Nagel IgG/Alb Ratio, CSF UPTCAL Normal [facility] Comment on above: Result Comment: Unab le to calculate result since non-numeric result obtained for component test. Performed By: #### I MMUN G #### [facility] [address] [address] [address] Li Nagel Immunoglobulin G, Qn, Serum 971 mg/dL Normal 586-1602 [facility] Comment on above: Performed By: #### I MMUN G #### [facility] [address] [address] [address] Li Nagel LIVER-KIDNEY MICROSOMAL (LKM ) ABon 05-05-2022 Liver-Kidney Microsomal Ab 1.3 Units Normal 0.0-20.0 [facility] Comment on above: Result Comment: Nega tive 0.0 - 20.0 Equivocal 20.1 - 24.9 Positive >24.9 . LKM type 1 antibodies are detected in patients with autoimmune hepatitis type 2 and in up to 8% of patients with chronic HCV infection. Performed By: #### H EPACUT #### [facility] [address] [place] [address] Dr. Li Nagel MITICHONDRIAL (M2) ANTIBODYo n 05-05-2022 Mitochondrial (M2) Antibody <20.0 Normal 0.0-20.0 [facility] Comment on above: Result Comment: Nega tive 0.0 - 20.0 Equivocal 20.1 - 24.9 Positive >24.9 . Mitochondrial (M2) Antibodies are found in 90-96% of patients with primary biliary cirrhosis. Performed By: #### A LPHPHN #### [facility] [address] [place] [address] Dr. Li Nagel SMOOTH MUSCLE ANTIBODYon Actin (Smooth Muscle) Antibody 9 Units Normal 0-19 [facility] Comment on above: Result Comment: Nega tive 0 - 19 Weak positive 20 - 30 Moderate to strong positive >30 . Actin Antibodies are found in 52-85% of patients with autoimmune hepatitis or chronic active hepatitis and in 22% of patients with primary biliary cirrhosis. Performed By: #### A LPHPHN #### [facility] [address] [address] [address] Li Nagel FERRITINon 05-03-2022 Ferritin [Mass/Vol] 319.0 ng/mL Critically high 6.2-137.0 [facility] Comment on above: Performed By: #### A LPHPHN #### [facility] [address] [address] [address] Li Nagel PAP ACOG PANEL 2: 30 to 63on 04-28-2022 . . Normal [facility] Comment on above: Result Comment: Perf ormed at: BA Performed By: #### I MMUN G #### [facility] [address] [address] [address] Li Nagel Age Gdln ACOG Testing - [facility] Comment on above: Performed By: #### I MMUN G #### [facility] [address] [address] [address] Li Nagel DIAGNOSIS: Comment Normal [facility] Comment on above: Result Comment: NEGA TIVE FOR INTRAEPITHELIAL LESION OR MALIGNANCY. Performed at: BA Performed By: #### I MMUN G #### [facility] [address] [address] [address] Li Nagel HPV Aptima Negative Normal Negative [facility] Comment on above: Result Comment: This nucleic acid amplification test detects fourteen high-risk HPV types (16,18,31,33,35,39,45,51,52,56,58,59,66,68) without differentiation. Performed at: =G Performed By: #### I MMUN G #### [facility] [address] [address] [address] Li Nagel HPV Genotype Reflex Comment Normal [facility] Comment on above: Result Comment: Crit eria not met, HPV Genotype not performed. Performed at: BA Performed By: #### I MMUN G #### [facility] [address] [place] [address] Dr. Li Nagel Methodology: Comment Normal [facility] Comment on above: Result Comment: This liquid based ThinPrep(R) pap test was screened with the use of an image guided system. Performed at: WB Performed By: #### I MMUN G #### [facility] [address] [place] [address] Dr. Li Nagel Note: Comment Normal [facility] Comment on above: Result Comment: The Pap [...] Performed By: #### I MMUN G #### [facility] [address] [place] [address] Dr. Li Nagel Performed by: Comment Normal [facility] Comment on above: Result Comment: Gretta Holly Airplane Captain (ASCP) Performed at: BA Performed By: #### I MMUN G #### [facility] [address] [place] [address] Dr. Li Nagel Specimen adequacy: Comment Normal [facility] Comment on above: Result Comment: Sati sfactory for evaluation. No endocervical component is identified. Performed at: BA Performed By: #### I MMUN G #### [facility] [address] [place] [address] Dr. Li Nagel HEPATITIS PANEL, ACUTEon HBsAg Screen Negative Normal Negative [facility] Comment on above: Performed By: #### H EPACUT #### [facility] [address] [place] [address] Dr. Li Nagel HCV AB <0.1 Normal 0.0-0.9 [facility] Comment on above: Performed By: #### H EPACUT #### [facility] [address] [place] [address] Dr. Li Nagel Hep A Ab, IgM Negative Normal Negative [facility] Comment on above: Performed By: #### H EPACUT #### [facility] [address] [place] [address] Dr. Li Nagel Hep B Core Ab, IgM Negative Normal Negative [facility] Comment on above: Performed By: #### H EPACUT #### [facility] [address] [place], [place] [address] Dr. Li Nagel Interpretation: Comment Normal [facility] Comment on above: Result Comment: Nega tive Not infected with HCV, unless recent infection is suspected or other evidence exists to indicate HCV infection. Performed By: #### H EPACUT #### [facility] [address] [place], [place] [address] Dr. Li Nagel US PELVIS AND TRANSVAGon [...] LAURIE CRUZ Date: 2021-12-22 09:50 Normal [facility] US ABD RT UPPER QUADRANTon 0 12-10-2021 [facility] US PELVIS AND TRANSVAGon US PELVIS [...] LAURIE CRUZ Date: 2021-10-28 13:01 Normal [facility] VAGINITIS/VAGINOSIS DNA PROB Kwasi 10-21-2021 Sarah species Negative Normal Negative [facility] Comment on above: Performed By: #### I MMUN G #### [facility] [address] [place] [address] Dr. Li Nagel Gardnerella vaginalis Negative Normal Negative [facility] Comment on above: Performed By: #### I MMUN G #### [facility] [address] [place] [address] Dr. Li Nagel Trichomonas vaginalis Negative Normal Negative [facility] Comment on above: Performed By: #### I MMUN G #### [facility] [address] [place] [address] Dr. Li Nagel CBC AUTO DIFFon 10-20-2021 BASO # 0.0 103/ul Normal 0.0-0.1 [facility] Comment on above: Performed By: #### A LPHPHN #### [facility] [address] [place] [address] Dr. Li Nagel Basophils/100 WBC (Bld) 0.4 % Normal 0.2-2.0 [facility] Comment on above: Performed By: #### A LPHPHN #### [facility] [address] [place] [address] Dr. Li Nagel EO # 0.2 103/ul Normal 0.0-0.7 [facility] Comment on above: Performed By: #### A LPHPHN #### [facility] [address] [place] [address] Dr. Li Nagel Eosinophils/100 WBC (Bld) 2.6 % Normal 0.9-7.0 [facility] Comment on above: Performed By: #### A LPHPHN #### [facility] [address] [place] [address] Dr. Li Nagel Erythrocyte distribution width (RBC) [Ratio] 12.6 % Normal 11.0-15.0 [facility] Comment on above: Performed By: #### A LPHPHN #### [facility] [address] [place] [address] Dr. Li Nagel Hematocrit (Bld) [Volume fraction] 40.0 % Normal 36.0-48.0 [facility] Comment on above: Performed By: #### A LPHPHN #### [facility] [address] [place] [address] Dr. Li Nagel Hemoglobin (Bld) [Mass/Vol] 13.3 g/dL Normal 12.0-16.0 [facility] Comment on above: Performed By: #### A LPHPHN #### [facility] [address] [place] [address] Dr. Li Nagel IG # 0.06 10e3/ul Critically high 0.00-0.03 [facility] Comment on above: Performed By: #### A LPHPHN #### [facility] [address] [place] [address] Dr. Li Nagel IG % 0.9 % Critically high 0.0-0.5 [facility] Comment on above: Performed By: #### A LPHPHN #### [facility] [address] [place] [address] Dr. Li Nagel LYMPH # 2.2 103/ul Normal 1.2-3.8 [facility] Comment on above: Performed By: #### A LPHPHN #### [facility] [address] [place] [address] Dr. Li Nagel Lymphocytes/100 WBC (Bld) 31.0 % Normal 20.5-60.0 [facility] Comment on above: Performed By: #### A LPHPHN #### [facility] [address] [place] [address] Dr. Li Nagel MANUAL DIFF REQ NO Normal [facility] Comment on above: Performed By: #### A LPHPHN #### [facility] [address] [place] [address] Dr. Li Nagel MCH (RBC) [Entitic mass] 31.4 pg Normal 26.7-34.0 [facility] Comment on above: Performed By: #### A LPHPHN #### [facility] [address] [place] [address] Dr. Li Nagel MCHC (RBC) [Mass/Vol] 33.3 g/dL Normal 29.9-35.2 [facility] Comment on above: Performed By: #### A LPHPHN #### [facility] [address] [place] [address] Dr. Li Nagel MCV (RBC) [Entitic vol] 94.3 fL Normal 81.0-99.0 [facility] Comment on above: Performed By: #### A LPHPHN #### [facility] [address] [place] [address] Dr. Li Nagel MONO # 0.5 103/ul Normal 0.3-0.8 [facility] Comment on above: Performed By: #### A LPHPHN #### [facility] [address] [place] [address] Dr. Li Nagel Monocytes/100 WBC (Bld) 6.9 % Normal 1.7-12.0 [facility] Comment on above: Performed By: #### A LPHPHN #### [facility] [address] [place] [address] Dr. Li Nagel NEUT # 4.1 103/ul Normal 1.4-6.5 [facility] Comment on above: Performed By: #### A LPHPHN #### [facility] [address] [place] [address] Dr. Li Nagel Neutrophils/100 WBC (Bld) 58.2 % Normal 43.0-75.0 [facility] Comment on above: Performed By: #### A LPHPHN #### [facility] [address] [address] [address] Li Nagel Platelet mean volume (Bld) [Entitic vol] 11.0 fL Normal 9.5-13.5 [facility] Comment on above: Performed By: #### A LPHPHN #### [facility] [address] [address] [address] Li Nagel PLT 211 103/ul Normal 150-450 [facility] Comment on above: Performed By: #### A LPHPHN #### [facility] [address] [address] [address] Li Nagel RBC 4.24 106/ul Normal 4.20-5.40 [facility] Comment on above: Performed By: #### A LPHPHN #### [facility] [address] [address] [address] Li Nagel WBC 7.0 103/ul Normal 4.0-11.0 [facility] Comment on above: Performed By: #### A LPHPHN #### [facility] [address] [place] [address] ABD/PELV W CONon 10-21-19 CT ABD/PELV W CON EXAMINATION: CT ABD/PELV [...] DOLORES MOON Date: 2021-10-20 14:53 Normal [facility] OCC BLD IMMUNO SCREENon 09-23 OCCULT BLOOD Negative Normal NEGATIVE [facility] Comment on above: Performed By: #### O BSCRN #### [facility] [address] [place] [address] Dr. Li Nagel PROF 14(COMP METB)on 022 Albumin [Mass/Vol] 3.7 g/dL Normal 3.4-5.0 [facility] Comment on above: Performed By: #### A LPHPHN #### [facility] [address] [place] [address] Dr. Li Nagel Albumin/Globulin [Mass ratio] 1.2 {ratio} Normal [facility] Comment on above: Performed By: #### A LPHPHN #### [facility] [address] [place] [address] Dr. Li Nagel ALP [Catalytic activity/Vol] 86 U/L Normal 46-116 [facility] Comment on above: Performed By: #### A LPHPHN #### [facility] [address] [place] [address] Dr. Li Nagel ALT [Catalytic activity/Vol] 109 U/L Critically high 14-59 [facility] Comment on above: Performed By: #### A LPHPHN #### [facility] [address] [place] [address] Dr. Li Nagel Anion gap [Moles/Vol] 7.8 mmol/L Normal [facility] Comment on above: Performed By: #### A LPHPHN #### [facility] [address] [place] [address] Dr. Li Nagel AST [Catalytic activity/Vol] 57 U/L Critically high 15-37 [facility] Comment on above: Performed By: #### A LPHPHN #### [facility] [address] [address] [address] Li Nagel Bilirubin [Mass/Vol] 0.4 mg/dL Normal 0.2-1.0 [facility] Comment on above: Performed By: #### A LPHPHN #### [facility] [address] [place] [address] Dr. Li Nagel Calcium [Mass/Vol] 8.9 mg/dL Normal 8.5-10.1 [facility] Comment on above: Performed By: #### A LPHPHN #### [facility] [address] [place] [address] Dr. Li Nagel Chloride [Moles/Vol] 104 mmol/L Normal 98-107 [facility] [facility] Comment on above: Performed By: #### A LPHPHN #### [facility] [address] [place] [address] Dr. Li Nagel CO2 [Moles/Vol] 27.7 mmol/L Normal 21.0-32.[address] [facility] Comment on above: Performed By: #### A LPHPHN #### [facility] [address] [place] [address] Dr. Li Nagel Creatinine [Mass/Vol] 0.78 mg/dL Normal 0.55-1.02 [facility] Comment on above: Performed By: #### A LPHPHN #### [facility] [address] [place] [address] Dr. Li Nagel EGFR-AF UKRAINIAN >60 Normal >=[address] [facility] Comment on above: Performed By: #### A LPHPHN #### [facility] [address] [place] [address] Dr. Li Nagel EGFR-NON AF UKRAINIAN >60 Normal >=60 [facility] Comment on above: Performed By: #### A LPHPHN #### [facility] [address] [place] [address] Dr. Li Nagel Globulin (S) [Mass/Vol] 3.2 g/dL Normal [facility] Comment on above: Performed By: #### A LPHPHN #### [facility] [address] [place] [address] Dr. Li Nagel Glucose [Mass/Vol] 104 mg/dL Normal 74-106 [facility] Comment on above: Performed By: #### A LPHPHN #### [facility] [address] [address] [address] Li Nagel Potassium [Moles/Vol] 3.5 mmol/L Normal 3.5-5.1 [facility] Comment on above: Performed By: #### A LPHPHN #### [facility] [address] [address] [address] Li Nagel Protein [Mass/Vol] 6.9 g/dL Normal 6.4-8.2 [facility] Comment on above: Performed By: #### A LPHPHN #### [facility] [address] [place] [address] Dr. Li Nagel Sodium [Moles/Vol] 136 mmol/L Normal 136-145 [facility] Comment on above: Performed By: #### A LPHPHN #### [facility] [address] [place] [address] Dr. Li Nagel Urea nitrogen [Mass/Vol] 10.0 mg/dL Normal 7.0-18.0 [facility] Comment on above: Performed By: #### A LPHPHN #### [facility] [address] [place] [address] Dr. Li Nagel Urea nitrogen/Creatinine [Mass ratio] 12.8 mg/mg Normal [facility] Comment on above: Performed By: #### A LPHPHN #### [facility] [address] [place] [address] Dr. Li Nagel XR LSPINE MIN 4 [...] by: LAURIE CRUZ Date: 2021-09-06 15:05 Normal [facility] NM HEPATOBILIARY SCAN W EFon 08-27-2021 NM [...] ADKINS Date: 2021-08-27 16:05 Normal [facility] Comprehensive Metabolic Pane yair 08-20-2021 Albumin [Mass/Vol] 5.0 g/dL Normal 3.6-5.1 [facility] Special[facility] Comment on above: Performed By: #### C MP #### [facility] [address], [place] [id number] Albumin/Globulin [Mass ratio] 2.1 {ratio} Normal 1.0-2.5 [facility] Comment on above: Performed By: #### C MP #### [facility] [address], [place] [id number] ALP [Catalytic activity/Vol] 110 U/L Normal 35-119 [facility] Comment on above: Performed By: #### C MP #### [facility] [address], [place] [id number] ALT [Catalytic activity/Vol] 71 U/L High 6-33 [facility] Comment on above: Result Comment: 03/24 Female reference range changed. Performed By: #### C MP #### [facility] [address], [place] [id number] Anion gap [Moles/Vol] 17 mmol/L Normal 12-20 [facility] Comment on above: Result Comment: Effe ctive 04/29/2019 reference range changed. Performed By: #### C MP #### [facility] [address], [place] [id number] AST [Catalytic activity/Vol] 69 U/L High 9-34 [facility] Comment on above: Performed By: #### C MP #### [facility] [address], [place] [id number] BUN/CREA 11 Ratio Normal 6-22 [facility] Comment on above: Performed By: #### C MP #### [facility] [address], [place] [id number] Calcium [Mass/Vol] 9.8 mg/dL Normal 8.6-10.2 [facility] Comment on above: Performed By: #### C MP #### [facility] [address], [place] [id number] Chloride [Moles/Vol] 99 mmol/L Normal 98-107 [facility] Comment on above: Performed By: #### C MP #### [facility] [address], [place] [id number] CO2 [Moles/Vol] 25 mmol/L Normal 20-31 [facility] Comment on above: Performed By: #### C MP #### [facility] [address], [place] [id number] Creatinine [Mass/Vol] 0.9 mg/dL Normal 0.6-1.4 [facility] Comment on above: Performed By: #### C MP #### [facility] [address], [place] [id number] eGFRAA 94 mL/min/1.73m2 Normal >60 [facility] Comment on above: Performed By: #### C MP #### [facility] [address], [place] [id number] eGFRNAA 78 mL/min/1.73m2 Normal >60 [facility] Comment on above: Performed By: #### C MP #### [facility] [address], [place] [id number] Globulin (S) [Mass/Vol] 2.4 g/dL Normal 1.9-3.7 [facility] Comment on above: Performed By: #### C MP #### [facility] [address], [place] [id number] Glucose [Mass/Vol] 100 mg/dL High 65-99 [facility] Comment on above: Result Comment: For FASTING Glucose --- ADA reference ranges: Normal 65-99 mg/dl Prediabetes 100-125 Diabetes >/= 126 Performed By: #### C MP #### [facility] [address], [place] [id number] Potassium [Moles/Vol] 3.8 mmol/L Normal 3.5-5.5 [facility] Comment on above: Performed By: #### C MP #### [facility] [address], [place] [id number] Protein [Mass/Vol] 7.4 g/dL Normal 6.1-8.1 [facility] Comment on above: Performed By: #### C MP #### [facility] [address], [place] [id number] Sodium [Moles/Vol] 137 mmol/L Normal 135-146 [facility] Comment on above: Performed By: #### C MP #### [facility] [address], [place] [id number] TBIL <0.3 Normal [facility] Special[facility] Comment on above: Performed By: #### C MP #### [facility] [address], [place] [id number] Urea nitrogen [Mass/Vol] 10 mg/dL Normal 7-25 [facility] Comment on above: Performed By: #### C MP #### [facility] [address], [place] [id number] US SINGLE QUAD RT UPPERon US SINGLE [...] JACKSON ADKINS Date: 2021-08-16 08:19 Normal [facility] Complete Blood Count with Au to Diffon 08-06-2021 Basophils (Bld) [#/Vol] 0.03 10*3/uL Normal 0.00-0.20 [facility] Comment on above: Performed By: #### C MP, CBCAD, LIPD #### [facility] [address], [place] [id number] Basophils/100 WBC (Bld) 0.4 % Normal [facility] Comment on above: Performed By: #### C MP, CBCAD, LIPD #### [facility] [address], [place] [id number] Eosinophils (Bld) [#/Vol] 0.11 10*3/uL Normal 0.02-0.50 [facility] Comment on above: Performed By: #### C MP, CBCAD, LIPD #### [facility] [address], [place] [id number] Eosinophils/100 WBC (Bld) 1.4 % Normal [facility] Comment on above: Performed By: #### C MP, CBCAD, LIPD #### [facility] [address], [place] [id number] Erythrocyte distribution width (RBC) [Ratio] 12.6 % Normal 11.0-15.0 [facility] Comment on above: Performed By: #### C MP, CBCAD, LIPD #### [facility] [address], [place] [id number] Hematocrit (Bld) [Volume fraction] 44.2 % Normal 35.0-47.0 [facility] Comment on above: Performed By: #### C NORBERTO CBCAD, LIPD #### [facility] [address], [place] [id number] Hemoglobin (Bld) [Mass/Vol] 14.8 g/dL Normal 11.6-15.5 [facility] Comment on above: Performed By: #### C NORBERTO, CBCAD, LIPD #### [facility] [address], [place] [id number] Lymphocytes (Bld) [#/Vol] 2.2 10*3/uL Normal 0.9-3.9 [facility] Comment on above: Performed By: #### C NORBERTO CBCAD, LIPD #### [facility] [address], [place] [id number] Lymphocytes/100 WBC (Bld) 28.1 % Normal [facility] Comment on above: Performed By: #### C NORBERTO, CBCAD, LIPD #### [facility] [address], [place] [id number] MCH (RBC) [Entitic mass] 31.2 pg Normal 27.0-33.0 [facility] Comment on above: Performed By: #### C NORBERTO, CBCAD, LIPD #### [facility] [address], [place] [id number] MCHC (RBC) [Mass/Vol] 33.5 g/dL Normal 32.0-36.0 [facility] Comment on above: Performed By: #### C NORBERTO, CBCAD, LIPD #### [facility] [address], [place] [id number] MCV (RBC) [Entitic vol] 93 fL Normal 80-100 [facility] Comment on above: Performed By: #### C NORBERTO, CBCAD, LIPD #### [facility] [address], [place] [id number] Monocytes (Bld) [#/Vol] 0.4 10*3/uL Normal 0.2-0.9 [facility] Comment on above: Performed By: #### C NORBERTO, CBCAD, LIPD #### [facility] [address] [facility] [place] [id number] Monocytes/100 WBC (Bld) 4.8 % Normal [facility] Comment on above: Performed By: #### C MP, CBCAD, LIPD #### [facility] [address] [facility] [place] [id number] Neutrophils (Bld) [#/Vol] 5.1 10*3/uL Normal 1.5-7.8 [facility] Comment on above: Performed By: #### C MP, CBCAD, LIPD #### [facility] [address] [facility] [place] [id number] Neutrophils/100 WBC (Bld) 64.3 % Normal [facility] Comment on above: Performed By: #### C MP, CBCAD, LIPD #### [facility] [address], [place] [id number] Platelet mean volume (Bld) [Entitic vol] 11.00 fL Normal 7.50-12.50 [facility] Comment on above: Performed By: #### C MP, CBCAD, LIPD #### [facility] [address], [place] [id number] Platelets (Bld) [#/Vol] 296 10*3/uL Normal 140-400 [facility] Comment on above: Performed By: #### C MP, CBCAD, LIPD #### [facility] [address], [place] [id number] RBC (Bld) [#/Vol] 4.74 10*6/uL Normal 3.90-5.20 [facility] Comment on above: Performed By: #### C MP, CBCAD, LIPD #### [facility] [address], [place] [id number] RDW-SD 43.4 fL Normal 37.0-50.0 [facility] Comment on above: Performed By: #### C MP, CBCAD, LIPD #### [facility] [address] [facility] [place] [id number] WBC (Bld) [#/Vol] 8.0 10*3/uL Normal 3.8-11.0 [facility] [place] [facility] Comment on above: Performed By: #### C MP, CBCAD, LIPD #### [facility] [address], [place] [id number] Comprehensive Metabolic Pane yair 08-06-2021 Albumin [Mass/Vol] 5.2 g/dL High 3.6-5.1 [facility] [place] [facility] Comment on above: Performed By: #### C MP, CBCAD, LIPD #### [facility] [address], [place] [id number] Albumin/Globulin [Mass ratio] 2.1 {ratio} Normal 1.0-2.5 [facility] Comment on above: Performed By: #### C MP, CBCAD, LIPD #### [facility] [address], [place] [id number] ALP [Catalytic activity/Vol] 115 U/L Normal 35-119 [facility] Comment on above: Performed By: #### C MP, CBCAD, LIPD #### [facility] [address], [place] [id number] ALT [Catalytic activity/Vol] 101 U/L High 6-33 [facility] Comment on above: Result Comment: 03/24 Female reference range changed. Performed By: #### C MP, CBCAD, LIPD #### [facility] [address], [place] [id number] Anion gap [Moles/Vol] 20 mmol/L Normal 12-20 [facility] Comment on above: Result Comment: Effe ctive 04/29/2019 reference range changed. Performed By: #### C MP, CBCAD, LIPD #### [facility] [address], [place] [id number] AST [Catalytic activity/Vol] 96 U/L High 9-34 [facility] Comment on above: Performed By: #### C MP, CBCAD, LIPD #### [facility] [address], [place] [id number] BUN/CREA 9 Ratio Normal 6-22 [facility] Comment on above: Performed By: #### C MP, CBCAD, LIPD #### [facility] [address], [place] [id number] Calcium [Mass/Vol] 9.9 mg/dL Normal 8.6-10.2 [facility] [place] [facility] Comment on above: Performed By: #### C NORBERTO, CBCAD, LIPD #### [facility] [address], [place] [id number] Chloride [Moles/Vol] 106 mmol/L Normal 98-107 [facility] Comment on above: Performed By: #### C MP, CBCAD, LIPD #### [facility] [address], [place] [id number] CO2 [Moles/Vol] 21 mmol/L Normal 20-31 [facility] Special[facility] Comment on above: Performed By: #### C NORBERTO, CBCAD, LIPD #### [facility] [address], [place] [id number] Creatinine [Mass/Vol] 0.9 mg/dL Normal 0.6-1.4 [facility] Comment on above: Performed By: #### C MP, CBCAD, LIPD #### [facility] [address], [place] [id number] eGFRAA 90 mL/min/1.73m2 Normal >60 [facility] Comment on above: Performed By: #### C MP, CBCAD, LIPD #### [facility] [address], [place] [id number] eGFRNAA 74 mL/min/1.73m2 Normal >60 [facility] Comment on above: Performed By: #### C MP, CBCAD, LIPD #### [facility] [address], [place] [id number] Globulin (S) [Mass/Vol] 2.5 g/dL Normal 1.9-3.7 [facility] Comment on above: Performed By: #### C MP, CBCAD, LIPD #### [facility] [address], [place] [id number] Glucose [Mass/Vol] 127 mg/dL High 65-99 [facility] [place] [facility] Comment on above: Result Comment: For FASTING Glucose --- ADA reference ranges: Normal 65-99 mg/dl Prediabetes 100-125 Diabetes >/= 126 Performed By: #### C MP, CBCAD, LIPD #### [facility] [address] [facility] [place] [id number] Potassium [Moles/Vol] 4.2 mmol/L Normal 3.5-5.5 [facility] Specialist Comment on above: Performed By: #### C MP, CBCAD, LIPD #### [facility] [address], [place] [id number] Protein [Mass/Vol] 7.7 g/dL Normal 6.1-8.1 [facility] Specialist Comment on above: Performed By: #### C MP, CBCAD, LIPD #### [facility] [address] [facility] [place] [id number] Sodium [Moles/Vol] 143 mmol/L Normal 135-146 [facility] Comment on above: Performed By: #### C MP, CBCAD, LIPD #### [facility] [address], [place] [id number] TBIL <0.3 Normal [facility] Specialist Comment on above: Performed By: #### C MP, CBCAD, LIPD #### [facility] [address], [place] [id number] Urea nitrogen [Mass/Vol] 8 mg/dL Normal 7-25 [facility] Comment on above: Performed By: #### C MP, CBCAD, LIPD #### [facility] [address], [place] [id number] Hemoglobin A1Con 08-06-2021 EAG 99.67 Normal [facility] Specialist Comment on above: Performed By: #### A 1C #### [facility] [address], [place] [id number] HbA1c (Bld) [Mass fraction] 5.1 % Normal 4.0-6.0 [facility] Specialist Comment on above: Performed By: #### A 1C #### [facility] [address], [place] [id number] Lipid Panelon 08-06-2021 Cholesterol [Mass/Vol] 190 mg/dL Normal 125-200 [facility] Comment on above: Result Comment: Low risk < 200mg/dL Borderline risk 201-239 mg/dl High risk > or equal to 240 Performed By: #### C MP, CBCAD, LIPD #### [facility] [address], [place] [id number] Cholesterol in HDL [Mass/Vol] 64 mg/dL Normal >40 [facility] Comment on above: Result Comment: High Cardiovascular Risk HDL <40 mg/dL Low Cardiovascular Risk HDL > or equal to 60 mg/dl Performed By: #### C MP, CBCAD, LIPD #### [facility] [address], [place] [id number] Cholesterol in LDL [Mass/Vol] 107 mg/dL Normal [facility] Specialist Comment on above: Result Comment: LDL ATP III CLASSIFICATION LDL less than 100 mg/dl Optimal LDL 100-129 mg/dl Near or above optimal LDL 130-159 Borderline high LDL 160-189 High LDL greater than 189 mg/dl Very High Performed By: #### C NORBERTO, CBCAD, LIPD #### [facility] [address], [place] [id number] Cholesterol in VLDL [Mass/Vol] 19 mg/dL Normal [facility] Special[facility] Comment on above: Performed By: #### C MP, CBCAD, LIPD #### [facility] [address], [place] [id number] Cholesterol.total/Ch olesterol in HDL [Mass ratio] 3 {ratio} Normal [facility] Specialist Comment on above: Performed By: #### C MP, CBCAD, LIPD #### [facility] [address], [place] [id number] Triglyceride [Mass/Vol] 95 mg/dL Normal 30-150 [facility] Comment on above: Result Comment: TRIG ATPIII CLASSIFICATIONS TRIG less than 150 mg/dl Normal TRIG 150-199 mg/dl Borderline High TRIG 200-500 mg/dl High TRIG greather than 500 mg/dl Very High Performed By: #### C MP, CBCAD, LIPD #### [facility] [address], [place] [id number] Q - CULTURE,URINE,ROUTINEon 06-04-2021 CULTURE, URINE, ROUTINE SEE NOTE Normal [facility] Comment on above: Order Comment: [facility] Testing performed at: QPT, [facility], [address] [place] [address], [address] [place] [address], [phone], Tank Refinisher: Tim Dotson MD [facility] Collection Date/Time: [facility] Results Received Date/Time: [facility] Reported Date/Time: [id number] Result Comment: CULT URE, URINE, ROUTINE Micro Number: [id number] Test Status: Final Specimen Source: Not given Specimen Quality: Adequate Result: Mixed genital marie isolated. These superficial bacteria are not indicative of a urinary tract infection. No further organism identification is warranted on this specimen. If clinically indicated, recollect clean-catch, mid-stream urine and transfer immediately to Urine Culture Transport Tube. Performed By: #### [id number] #### [facility] [address] [place] [address] MRI LUMBAR SPINE WO CONTRAST on 11-06-2018 [...] Naren Lagos MD 11/06/18 Final result Normal [facility] Vital Signs Date Time Vital Sign Value Performing Clinician Facility 12-28-2023 15:17-0400 Blood Pressure Location BHAVESH DEJESUS [facility] 12-28-2023 15:17-0400 Diastolic blood pressure 100 mm[Hg] BHAVESH DEJESUS [facility] 12-28-2023 15:17-0400 Heart rate 101 /min BHAVESH DEJESUS [facility] 12-28-2023 15:17-0400 Respiratory rate 18 /min BHAVESH DEJESUS [facility] 12-28-2023 15:17-0400 Systolic blood pressure 146 mm[Hg] BHAVESH OLEG [facility] 12-19-2023 15:01-0400 Body height 157.5 cm Solo Mora MD Work Phone: [facility] 12-19-2023 15:01-0400 Body mass index (BMI) [Ratio] 34.39 kg/m2 Solo Mora MD Work Phone: [facility] 12-19-2023 15:01-0400 Body weight 85.28 kg Solo Mora MD Work Phone: [facility] 12-19-2023 15:01-0400 Diastolic blood pressure 91 mm[Hg] Solo Mora MD Work Phone: [facility] 12-19-2023 15:01-0400 Heart rate 94 /min Solo Mora MD Work Phone: [facility] 12-19-2023 15:01-0400 Systolic blood pressure 127 mm[Hg] Solo Mora MD Work Phone: [facility] 11-02-2022 13:10-0400 Body height 157.5 cm Samuel Freeman MD Work Phone: [facility] 07-12-2023 13:10-0400 Body weight 71 kg Samuel Freeman MD Work Phone: [facility] 11-02-2022 13:10-0400 Diastolic blood pressure 97 mm[Hg] Samuel Freeman MD Work Phone: [facility] 11-02-2022 13:10-0400 Heart rate 100 /min Samuel Freeman MD Work Phone: [facility] 11-02-2022 13:10-0400 Systolic blood pressure 141 mm[Hg] Samuel Freeman MD Work Phone: [facility] 05-27-2022 11:29-0500 Body weight 85.73 kg Carol Winn MD Work Phone: [facility] 05-27-2022 11:29-0500 Diastolic blood pressure 92 mm[Hg] Carol Winn MD Work Phone: [facility] 05-27-2022 11:29-0500 Heart rate 102 /min Carol Winn MD Work Phone: [facility] 05-27-2022 11:29-0500 Systolic blood pressure 145 mm[Hg] Carol Winn MD Work Phone: [facility] 05-03-2022 15:30-0500 Body height 158.75 cm Imad Asaad Other [employer] Other 05-03-2022 15:30-0500 Body mass index (BMI) [Ratio] 34.55 kg/m2 Imad Asaad Other [employer] Other 05-03-2022 15:30-0500 Body weight 87.09 kg Imad Asaad Other [employer] Other 05-03-2022 15:30-0500 Diastolic blood pressure 91 mm[Hg] Imad Asaad Other [employer] Other 05-03-2022 15:30-0500 Systolic blood pressure 130 mm[Hg] Imad Asaad Other [facility] [employer] Other 05-03-2022 14:47-0500 Body weight 0 kg MD iGovani Hagen Work Phone: [facility] Encounters Encounter Date Encounter Type Care Provider Facility Start: 12-30-2024 ambulatory Madhuri MISHRA Facility:[facility] Start: 01-09-2024 ambulatory RUGEN M HIEU Not Available Start: 12-28-2023 End: 12-28-2023 Patient encounter procedure BHAVESH DEJESUS [facility] Start: 12-28-2023 End: 12-29-2023 ambulatory BHAVESH DEJESUS Facility:[facility] Comment on above: [employer] Start: 12-26-2023 [...] Available Start: 04-06-2023 End: 04-06-2023 ambulatory AKUA Kendrick ANA LAURA Not Available Start: 03-22-2023 End: 03-24-2023 Evaluation and management of inpatient MARY [facility] Start: 03-20-2023 ambulatory Carol Winn MD Work [...] Start: 10-26-2022 End: 10-26-2022 ambulatory Imad Asaad Facility:[facility] Start: 10-26-2022 End: 10-26-2022 ambulatory MD Giovani Hagen Work Phone: [facility] Work Phone: Start: 10-26-2022 End: 10-26-2022 Patient encounter procedure MD Giovani Hagen Work Phone: [facility] [place] Work Phone: Start: 10-18-2022 ambulatory Maria Dolores Corey DO Work Phone: Gastroenterology Start: 10-18-2022 Telephone encounter Maria Dolores Corey DO Work Phone: Gastroenterology Comment on above: Medication Preauthorization ([employer]) Results Start: 10-17-2022 End: 10-18-2022 ambulatory MARIA DOLORES COREY Facility:[facility] Start: 10-17-2022 End: 10-17-2022 Patient encounter procedure [facility] Work Phone: Gastroenterology Comment on above: Gastroparesis (Primary Dx) Start: 09-12-2022 ambulatory CAROL WINN Facility[facility] Start: 09-12-2022 End: 09-12-2022 Subsequent hospital visit by physician [facility] Work Phone: [facility] Comment on above: Nausea [R11.0] Start: 08-24-2022 Telephone encounter Nurse [facility] Work Phone: Gastroenterology Comment on above: Appointment Start: 07-08-2022 End: 07-08-[address] MADHURI MISRHA . Facility:[facility] Start: 07-06-2022 End: 07-07-[address] MADHURI MISHRA . Facility: Start: 07-05-2022 End: 07-05-2022 Patient encounter procedure Madhuri MISHRA [facility] Start: 07-04-2022 Orders Only Carol Winn MD Work Phone: Gastroenterology Start: 06-29-2022 End: 06-30-[address] MADHURI MISHRA . Facility: Start: 06-29-2022 End: 06-29-2022 Lab Drop off Madhuri MISHRA [facility] Start: 06-23-2022 ambulatory Carol Winn MD Work Phone: Gastroenterology Comment on above: EGD instructions Start: 06-23-2022 E-mail encounter from caregiver Carol Winn MD Work Phone: [facility] Start: 06-16-2022 ambulatory [facility] Provider Gastroenterology Comment on above: Question regarding US ABD RT UPPER QUADR ANT Start: 06-15-2022 ambulatory CAROL WINN Facility[facility] Start: 06-15-2022 End: 06-15-2022 Subsequent hospital visit by physician [facility] Work Phone: [facility] Radiology Ultrasound Comment on above: Liver lesion [K76.9] Start: 06-14-2022 Orders Only Carol Winn MD Work Phone: Ambulatory Surgery Comment on above: Liver lesion (Primary Dx) Results Start: 06-10-2022 ambulatory Diamond Pycraft RT(R) Radiology Ct Scan Comment on above: Radiology CT Start: 06-10-2022 Patient encounter procedure Diamond Pycraft RT(R) [facility] Start: 06-10-2022 End: 06-10-2022 Subsequent hospital visit by physician Ct Prep [facility] Radiology Ct Scan Comment on above: Bilious vomiting with nausea [R11.14] Start: 05-27-2022 ambulatory CAROL WINN Facility:[facility] Start: 05-27-2022 End: 05-27-2022 Subsequent hospital visit by physician [facility] Work Phone: [facility] Radiology General Comment on above: SOB (shortness of breath) [R06.02] Start: 05-27-2022 End: 05-27-2022 Patient encounter procedure Carol Winn MD Work Phone: Gastroenterology Comment on above: Fatty liver (Primary Dx); Bilious vomiting with nausea; Right sided abdominal pain; Nausea; History of diverticulitis; SOB (shortness of breath) Start: 05-13-2022 End: 05-13-2022 ambulatory Imad Asaad Facility:[facility] Start: 05-13-2022 End: 05-13-2022 ambulatory MD Giovani Hagen Work Phone: [facility] Work Phone: Start: 05-13-2022 End: 05-13-2022 Patient encounter procedure MD Giovani Hagen Work Phone: [facility] Work Phone: Start: 05-03-2022 End: 05-04-2022 ambulatory IMAD ASAAD [employer] Other Start: 05-03-2022 Office consultation new/estab patient 60 min Imad Asaad [facility] Gastroenterology Start: 04-20-2022 End: 04-20-[address] AURORA IRBY . Facility:[facility] Start: 04-06-2022 End: 04-07-[address] GIOVANI HAGEN Facility:[facility] Start: 12-21-2021 End: 12-22-[address] AURORA IRBY . Facility:[facility] Start: 12-10-2021 End: 12-10-2021 Subsequent hospital visit by physician [facility] Ultrasound Comment on above: Elevated LFTs [R79.89] Start: 10-27-2021 End: 10-28-[address] AURORA IRBY . Facility:[facility] Start: 10-20-2021 End: 10-20-2021 ambulatory BERONICA MCWILLIAMS . Facility:[facility] Start: 10-19-2021 End: 10-19-[address] AURORA IRBY . Facility:[facility] Start: 09-06-2021 End: 09-07-[address] GIOVANI HAGEN Facility:[facility] Start: 08-27-2021 End: 08-28-[address] GIOVANI HAGEN Facility:[facility] Start: 08-14-2021 End: 08-15-[address] GIOVANI HAGEN Facility:[facility] Start: 11-06-2018 End: 11-09-2018 Patient encounter procedure [facility] Procedures Date Procedure Procedure Detail Performing Clinician [...] 2:00 PM EDT Results Only Cardiology [address] [id number] Dx: Syncope, unspecified syncope type [R55] Cardiology Comment on above: Dx: Syncope, unspecified syncope type [R 55] Start: 12-24-2023 Covid-19 Vaccine ( season) Covid-19 Vaccine ( season) [facility] Start: 12-24-2023 Influenza vaccination Influenza Vaccine (#1) [facility] Start: 12-19-2023 End: 12-19-2023 ambulatory 12/19/2023 2:15 PM EDT Results Only Cardiology [address] [place] [address] Exertional Syncope. Referring: Dr. Shilo Dillon Cardiology Comment on above: Exertional Syncope. Referring: Dr. Shilo Dillon Start: 12-19-2023 End: 12-19-2023 Patient encounter procedure Cardiology Comment on above: Exertional Syncope. Referring: Dr. Shilo Dillon Start: 04-24-2023 Behavioral Health Screening Behavioral Health Screening [facility] Start: 12-23-2022 Covid-19 Vaccine () Covid-19 Vaccine () [facility] Start: 12-23-2022 Influenza vaccination [facility] Start: 05-13-2022 [facility] Start: 04-24-2022 DEPRESSION ASSESSMENT DEPRESSION ASSESSMENT [facility] Start: 12-28-2021 COVID-19 VACCINE (4 - Booster for Pfizer series) COVID-19 VACCINE (4 - Booster for Pfizer series) [facility] Start: 12-28-2021 COVID-19 VACCINE (4 - Pfizer series) COVID-19 VACCINE (4 - Pfizer series) [facility] Start: 12-23-2021 Influenza vaccination INFLUENZA (#1) [facility] Start: 02-06-2020 Urine microalbumin profile DTaP,Tdap,Td Vaccine (6 - Td or Tdap) [facility] Start: 2018 HPV TESTING HPV TESTING [facility] Start: 2009 PAP TESTING PAP TESTING [facility] Start: 2009 Screening for malignant neoplasm of cervix Cervical Cancer Screening [facility] Start: 09-29-2007 Urine microalbumin profile DTAP,TDAP,TD (1 - Tdap) [facility] Start: 11-30-2006 HPV Vaccine (2 - 3-dose series) HPV Vaccine (2 - 3-dose series) [facility] Start: 2006 Anxiety Screening Anxiety Screening [facility] Start: 2006 Depression Screening Depression Screening [facility] Start: 2006 HEPATITIS C SCREENING HEPATITIS C SCREENING [facility] Start: 2006 Hepatitis C screening Hepatitis C Screening [facility] Start: 2006 HIV SCREENING HIV SCREENING [facility] Start: 2006 HIV screening HIV Screening [facility] Start: 1988 HEPATITIS B (1 of 3 - 3-dose series) HEPATITIS B (1 of 3 - 3-dose series) [facility] smooth muscle IgG Ab [Units/volume] in Serum [facility] Alpha 1 antitrypsin [Mass/volume] in Serum or Plasma [facility] Alpha 1 antitrypsin phenotyping [Identifier] in Serum or Plasma by Immunofixation [facility] Ceruloplasmin [Mass/ volume] in Serum or Plasma [facility] End: 06-26-2023 Ct abdomen & pelvis w/o contrast material CT ABD/PEL WO IVCON Radiology Routine Bilious vomiting with nausea Right sided abdominal pain Nausea 1 Occurrences starting 05/27/2022 until 06/26/2023 [facility] Work Phone: Comment on above: 1 Occurrences starting 05/27/2022 until 06/26/2023 End: 11-01-2024 ECG COMPLETE ECG COMPLETE ECG Routine Gastroparesis 1 Occurrences starting 11/02/2023 until 11/01/2024 [facility] Work Phone: Comment on above: 1 Occurrences starting 11/02/2023 until 11/01/2024 End: 12-18-2024 ECG COMPLETE ECG COMPLETE ECG Routine Syncope and collapse 1 Occurrences starting 12/19/2023 until 12/18/2024 [facility] Work Phone: Comment on above: 1 Occurrences starting 12/19/2023 until 12/18/2024 End: 05-27-2023 EGD DIAGNOSTIC EGD DIAGNOSTIC Endoscopy Routine Bilious vomiting with nausea Right sided abdominal pain 1 Occurrences starting 05/27/2022 until 05/27/2023 [facility] Work Phone: Comment on above: 1 Occurrences starting 05/27/2022 until 05/27/2023 Electrogastrography dx transcutaneous EGG (ELECTROGASTROGRAPHY) Procedures Routine Gastroparesis Ordered: 09/14/2022 [facility] Work Phone: Comment on above: Ordered: 09/14/2022 Hepatitis A virus Ab [Presence] in Serum by Immunoassay [facility] HFE gene mutations f ound [Identifier] in Blood or Tissue by Molecular genetics method Nominal [facility] Homogenous nuclear A b pattern [Titer] in Serum [facility] IgG [Mass/volume] in Serum or Plasma [facility] Lipoprotein a [Moles /volume] in Serum or Plasma [facility] Mitochondria M2 IgG Ab [Units/volume] in Serum [facility] Nuclear Ab [Titer] in Serum [facility] OUTSIDE VENDOR CARDI AC OUTPATIENT EXTENDED RHYTHM RECORDING (WITHOUT TELEMETRY) OUTSIDE VENDOR CARDIAC OUTPATIENT EXTENDED RHYTHM RECORDING (WITHOUT TELEMETRY) Holter Routine Syncope, unspecified syncope type Ordered: 12/19/2023 [facility] Comment on above: Ordered: 12/19/2023 End: 12-18-2024 STRESS ECHO TREADMILL STRESS ECHO TREADMILL Cardiology Routine Syncope, unspecified syncope type 1 Occurrences starting 12/19/2023 until 12/18/2024 [facility] Work Phone: Comment on above: 1 Occurrences starting 12/19/2023 until 12/18/2024 End: 07-14-2023 Us abdominal real time w/image limited US ABD RT UPPER QUADRANT Radiology Routine Liver lesion 1 Occurrences starting 06/14/2022 until 07/14/2023 [facility] Work Phone: Comment on above: 1 Occurrences starting 06/14/2022 until 07/14/2023 [facility] Immunizations Immunization Date Immunization Notes Care Provider Bernadette vickers 11-02-2021 SARS-CoV-2 mRNA (nrupengzbic-oqtj-fzeo ose) vaccine Madhuri MISHRA [facility] 04-29-2021 SARS-CoV-2 (COVID-19 ) mRNA BNT-162b2 vax Madhuri MISHRA [facility] 03-03-2021 SARS-CoV-2 (COVID-19 ) mRNA BNT-162b2 vax Madhuri MISHRA [facility] Comment on above: Result Comment: 2022: TPVAL 02-09-2021 influenza virus vaccine, unspecified formulation Madhuri MISHRA [facility] 03-16-2020 influenza virus vaccine, unspecified formulation Madhuri MISHRA [facility] 01-08-2018 influenza virus vaccine, unspecified formulation Madhuri MISHRA [facility] 02-01-2017 influenza virus vaccine, unspecified formulation Madhuri MISHRA [facility] 03-25-2016 influenza virus vaccine, unspecified formulation Madhrui MISHRA [facility] 02-05-2010 tetanus toxoid, reduced diphtheria toxoid, and acellular pertussis vaccine, adsorbed [employer] [facility] 01-05-2007 hepatitis B vaccine, pediatric or pediatric/adolescent dosage [employer] [facility] 11-02-2006 hepatitis B vaccine, pediatric or pediatric/adolescent dosage [employer] [facility] 11-02-2006 HPV, unspecified formulation [employer] [facility] 11-02-2006 meningococcal ACWY vaccine, unspecified formulation [employer] [facility] 02-20-1998 hepatitis B vaccine, pediatric or pediatric/adolescent dosage [employer] [facility] 12-07-1992 measles, mumps and rubella virus vaccine Madhuri MISHRA [facility] 06-09-1992 measles, mumps and rubella virus vaccine Madhuri MISHRA [facility] 10-31-1990 varicella virus vaccine Madhuri MISHRA [facility] NEGATED: Highlighted row has not occurred!05-01-2019 influenza virus vaccine, live, attenuated, for intranasal use Madhuricecille MISHRA [facility] NEGATED: Highlighted row has not occurred!04-03-2019 influenza virus vaccine, live, attenuated, for intranasal use Madhuri MISHRA [facility] Payers Date Payer Category Payer Self-pay [id number] 2020 Unknown [id number] 1988 Unknown [id number] 2.16.840.1.598598.3.579.2.182 1988 Unknown [id number] 2.16.840.1.565105.3.579.2.593 1988 Unknown [id number] 2.16.840.1.196389.3.579.2.593 1988 Unknown [id number] 2.16.840.1.211775.3.579.2.593 1988 Unknown [id number] 2.16.840.1.094001.3.579.2.593 1988 Unknown [id number] 2.16.840.1.729957.3.579.2.593 1988 Unknown [id number] 2.16.840.1.900302.3.579.2.593 1988 Unknown [id number] 2.16.840.1.303382.3.579.2.593 1988 Unknown [id number] 2.16.840.1.781795.3.579.2.593 1988 Unknown [id number] 2.16.840.1.543227.3.579.2.593 1988 Unknown [id number] 2.16.840.1.740695.3.579.2.593 1988 Unknown [id number] 2.16840.1.598762.3.579.2.593 1988 Unknown [id number] 2.16840.1.801798.3.579.2.593 1988 Unknown [id number] 2.16840.1.936701.3.579.2.593 1988 Unknown [id number] 2.16840.1.832535.3.579.2.177 1988 Unknown [id number] 2.16840.1.858755.3.579.2.727 1988 Unknown [id number] 2.16840.1.531238.3.579.2.727 1988 Unknown [id number] 2.840.1.127977.3.579.2.1259 1988 Unknown [id number] 2.840.1.299196.3.579.2.1259 1988 Unknown [id number] 2.16840.1.967426.3.579.2.1259 1988 Unknown [id number] 2.16840.1.935645.3.579.2.1259 1988 Unknown [id number] 2.16840.1.708446.3.579.2.1259 1988 Unknown [id number] 2.16840.1.891355.3.579.2.1259 1988 Unknown [id number] 2.16840.1.004696.3.579.2.1259 1988 Unknown [id number] 2.16.840.1.410732.3.579.2.1259 1959 Unknown [id number] Unknown [id number] ODJFS SSW MED[employer] [id number] Unknown [id number] 2.16.840.1.699706.3.579.2.531 Unknown [id number] 2.16.840.1.888277.3.579.2.531 Social History Date Type Detail Facility Tobacco smoking stat [facility] Unknown if ever smoked [facility] Work Phone: Start: 1990 Sex Assigned At Female F [facility] Start: 03-28-2019 End: 05-27-2022 Tobacco smoking status NHIS Never smoked tobacco [facility] Start: 03-28-2019 End: 05-27-2022 Tobacco use and exposure Smokeless tobacco non-user [facility] Start: 05-27-2022 End: 12-19-2023 Alcohol intake Current drinker of alcohol (finding) [facility] Start: 03-28-2019 Alcohol Comment socially [facility] Start: 1990 Sex Assigned At Not on file C [facility] Start: 10-17-2022 End: 11-02-2022 Sex Assigned At [facility] Start: 06-29-2022 End: 12-28-2023 Tobacco smoking status Ex-smoker (finding) [facility] Tobacco smoking status Never [facility] Start: 10-17-2022 End: 11-02-2022 History of Social function [facility] Start: 06-08-2021 Gender identity Identifies as female gender (finding) [facility] Start: 11-16-2021 End: 11-26-2021 Exposure to SARS-CoV-2 (event) Not sure [facility] Goals Date Patient Goal Desired Activity /State Personal health goal Functional Status Date Assessment Result Facility 12-28-2023 Functional Status N/A [facility] 06-30-2022 Functional Status N/A [facility] Clinical Notes 05-03-2022 to 12-28-2023 Gege Lema Tech - 12/19/2023 3:44 PM EDTPatient Solo Porras MD - 12/19/2023 2:45 PM EDTTelephone Encounter - Criss Mccrary - 11/02/2023 10:39 AM EDT Note Date & Type Note Facility 12-28-2023 Hospital Discharge instructions Patient Education 12/28/2023 15:59:41 Kidney Stones, Ncyi-ii-Umzk Kidney Stones Kidney stones are rock-like masses [...] Follow these instructions at home: Medicines Take ddei-jmk-kxqrhcf and prescription medicines only as told by [...] provider. Document Revised: 12/02/2022 Document Reviewed: 12/02/2022 [employer] Patient Education 2023 [employer]. Follow Up Care 11/07/2022 15:52:12 With:BHAVESH DEJESUS PA-C, URL Address: When:1 year [facility] 12-28-2023 Note Patient Education Urology Kidney Stones [...] these instructions at home: Medicines ? Take vpzk-zzr-rthenxg and prescription medicines only as told by [...] provider. Document Revised: 12/02/2022 Document Reviewed: 12/02/2022 [employer] Patient Education ? 2023 [employer]. [facility] 12-19-2023 Note Education (CARDMN) BELGICA HARPER ([id number]) 1990 F Date Time Provider Department 12/19/23 3:45 PM ARRHYTHMIA MONITORING LAB CARDMN Reason for Visit: Event [921] Cmt: ZIO PATCH Primary Visit Diagnosis:Syncope, unspecified syncope type [...] Encounter Status:Closed by GEGE LEMA on 12/19/23 [facility] 12-19-2023 Note HNO ID: [id number] Author: GEGE LEMA Tech Service: ? Author Type: Technologist Type: Progress Notes Filed: 12/19/2023 15:45 Note Text: EVENT MONITOR DISPOSABLE PATCH INSTRUCTIONS Patient Name: Belgica Harper [facility] Number: [id number] Skin prepped and cleansed with alcohol Patch secured to prepped area Monitor Activated Serial #: [id number] Patient Instructed: Prescribed order timeframe Bathing guidelines Usage of event button and diary documentation Return of monitor at the end of prescribed order Call with problems [phone] or [phone]. [phone] Patient expresses a good understanding of instructions Tristian Pretty [facility] 12-19-2023 History of Present illness Narrative EVENT MONITOR DISPOSABLE PATCH INSTRUCTIONS Patient Name: Belgica Harper [facility] Number: [id number] Skin prepped and cleansed with alcohol Patch secured to prepped area Monitor Activated Serial #: [id number] Patient Instructed: Prescribed order timeframe Bathing guidelines Usage of event button and diary documentation Return of monitor at the end of prescribed order Call with problems [phone] or [phone] ext. [phone] Patient expresses a good understanding of instructions Tristian Pretty documented in this encounter [facility] 12-19-2023 Instructions Solo Mora MD - 12/19/2023 3:27 PM EDT Next Steps: 1). Please wear a heart monitor for 2 weeks and mail it back 2). Please get a stress echo done and follow up with me afterwards documented in this encounter [facility] 12-19-2023 History of Present illness Narrative Images from the original note were not included. [facility] [place] Meghna Hooker Department of Cardiovascular Medicine SECTION OF CARDIAC PACING and ELECTROPHYSIOLOGY OUTPATIENT VISIT DATE December 19, 2023 OUTPATIENT VISIT TYPE NEW PRIMARY CARE PHYSICIAN: Giovani Hagen MD [address] [facility] [address] [place] [address] CHIEF COMPLAINT: Syncope, cardiac evaluation for family [...] had any workup done including Stress Echo, quality assurance monitor chassis or 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 Reports symptoms of palpitations [...] had any workup done including Stress Echo, quality assurance monitor chassis or 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 PLAN AND RECOMMENDATIONS: - Exercise stress echo for exertional syncope to rule out structural or arrhythmic cause - 2 week tina Fitzgerald personally interviewed, confirmed and edited the above information as obtained by others. CONTACT INFORMATION: oSlo Mora MD documented in this encounter [facility] 12-19-2023 Note HNO ID: [id number] Author: SOLO MORA MD Service: ? Author Type: Physician Type: Progress Notes Filed: 12/28/2023 02:49 Note Text: [facility] [place] Meghna Hooker Department of Cardiovascular Medicine SECTION OF CARDIAC PACING and ELECTROPHYSIOLOGY OUTPATIENT VISIT DATE December 19, 2023 OUTPATIENT VISIT TYPE NEW PRIMARY CARE PHYSICIAN: Giovani Hagen MD [address] [place] [address] CHIEF COMPLAINT: Syncope, cardiac evaluation for family [...] had any workup done including Stress Echo, quality assurance monitor chassis or 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 Reports symptoms of palpitations [...] for syncopal episod (more content not included)... [facility] 11-02-2023 Telephone encounter Note Images from the original note were not included. Records are in Care Everywhere: EP Referral- 11/01/23 (Dr. Shilo Dillon/Cardiology) Criss Mccrary [facility] 11-02-2023 Miscellaneous Notes Images from the original note were not included. Records are in Care Everywhere: EP Referral- 11/01/23 (Dr. Shilo Dillon/Cardiology) Criss Mccrary documented in this encounter [facility] 03-20-2023 Miscellaneous Notes Patient is a [...] prior to transfer. documented in this encounter [facility] 11-03-2022 Miscellaneous Notes PA for Ibsrela initiated electronically. Awaiting response [facility] ID# [id number] Rx BIN [id number] Rx PCN CLAIMCR Rx Grp STOH documented in this encounter [facility] 11-02-2022 History of Present illness Narrative Behavioral [facility] [place] Name: Belgica Harper MR#: [id number] Date: 11/02/2022 Time: 1 hour Referred by: [...] She was given the website for the [facility] Behavioral Medicine Program and shown the relaxation recordings with the recommendation to practice this and the rationale behind their use. Follow-up with Dr. Conteh was discussed as well as encouraging her to continue her PTSD work with a local trauma therapist. Soraida Zhang, Ph.D. documented in this encounter [facility] 11-02-2022 History of Present illness Narrative Assessment ASSESSMENT 32 year old female with medical refractory gastroparesis. PLAN I discussed surgical therapy for gastroparesis in detail. Belgica Harper is candidate for further medical treatment. Needs to stop Wegovy May consider for wireless motility capsule study Constipation medication change per Dr. 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 DO Palomo Keller Sp Ddsi Clinical Pool Please ask her to see RAILROAD DESIGN CONSULTANT to r/o endometriosis there was a very slight abnormal wave (not strong) suggesting its possible Called and spoke with the patient and relayed providers message. documented in this encounter [facility] 10-18-2022 Miscellaneous Notes PA initiated via [employer]. Await response. Covered: Retail, Mail Order Unknown: Specialty, Long-Term Care Group ID: [facility] Group name: BIN: [id number] PCN: CLAIMCR documented in this encounter [facility] 10-18-2022 History of Present illness Narrative Images from the original note were not included. documented in this encounter [facility] 10-17-2022 Nurse Note EGG completed. Able to drink the 500 ml of water without any difficulty. documented in this encounter [facility] 09-12-2022 Note HNO ID: [id number] Author: Shivani Vasquez RT(R) Service: Nuclear Medicine Author Type: Shipyard Supervisor Type: Progress Notes Filed: 09/12/2022 2:46 PM [...] safety can be found using this link: [email or web address]%[email or web address] [email or web address] SIGNATURE: RT Amber(R) PATIENT NAME: Belgica Harper DATE: September 12, 2022 TIME: 2:45 PM PAGER/CONTACT #: [facility] 09-12-2022 History of Present [...] be found using this link: [email or web address] [email or web address] SIGNATURE: RT Amber(R) PATIENT NAME: Belgica Harper DATE: September 12, 2022 TIME: 2:45 PM PAGER/CONTACT #: documented in this encounter [facility] 08-24-2022 Miscellaneous Notes Lm to confirm procedure for 08-31-22 documented in this encounter [facility] 07-05-2022 Hospital Discharge instructions Patient Education [...] Address: [facility] [address], [place] [address]- Business (1) When:11/04/2022 08:39:10 Comments:With a stone metabolic work-up [facility] 06-23-2022 Miscellaneous Notes Confirmed procedure for 06-30-22 documented in this encounter [facility] 06-15-2022 Note HNO ID: [id number] Author: Monet Osei RDMS Service: Abstract Author Type: Smoking Tobacco Packer Hand Type: Progress Notes Filed: 06/15/2022 8:09 PM [...] Osei RDMS June 15, 2022 8:08 PM [facility] 06-15-2022 History of Present [...] 2022 8:08 PM documented in this encounter [facility] 06-14-2022 Miscellaneous Notes Images from the [...] MD 06/14/2022 9:35 AM EST Back to [facility] Milly, I reviewed the ultrasound done in November This hypodensity was felt to be a benign cyst I will order a follow up ultrasound to be done This is reassuring Carol Winn MD 06/14/2022 9:29 AM EST [place] Milly, the CT scan showed Fatty liver [...] needed pending results documented in this encounter [facility] 06-10-2022 History of Present illness Narrative [...] 2022 10:01 AM documented in this encounter [facility] 05-27-2022 Note HNO ID: [id number] Author: RT Nakita(Aroldo) Service: Radiology Author Type: [...] IV DATA: Not applicable SIGNED BY: RT Nakita(Aroldo) May 27, 2022 12:29 PM [facility] 05-27-2022 History of Present [...] 2022 12:29 PM documented in this encounter [facility] 05-27-2022 History of Present illness Narrative [...] follow up with Dr. Hylton who is clinical data specialist We discussed seeing endocrinology to help with [...] follow-ups on file. documented in this encounter [facility] 05-03-2022 Evaluation note Encounter Date Diagnosis Assessment Notes Apr, ENGLISH (nonalcoholic steatohepatiti s) (ICD-10 - K75.81) 10 Pedro, 2023 Abnormal ultrasound (ICD-10 - R93.89) Apr, Elevated liver enzymes (ICD-10 - R74.8) Apr, Liver cyst (ICD-10 - K76.89) [employer] Other Evaluation + Plan note Future Appointments Appointment Date:06/30/2022 10:00:00 AM Scheduled Provider: Location:[facility] Appointment Type:Urology CALL PAT FT Appointment Date:07/05/2022 08:15:00 AM Scheduled Provider: Location:[facility] Appointment Type:Urology FT Diagnostic Tests Pending * Urine Culture [facility] Future Appointments Appointment Date:11/07/2022 03:15:00 PM Scheduled Provider:Madhuri MISHRA MD Location:[facility] Appointment Type:[facility] Future Appointments Appointment Date:12/30/2024 03:15:00 PM Scheduled Provider:Madhuri MISHRA MD Location:[facility] Appointment Type:URO Office Visit [facility] evaluation noteNo assessment information available [facility] Work Phone: Evaluation note* Diagnosis Fatty liver- Primary Other chronic nonalcoholic liver disease Bilious vomiting with nausea Right sided abdominal pain Abdominal pain, unspecified site Nausea Nausea alone History of diverticulitis SOB (shortness of breath) Shortness of breath documented in this encounter [facility] note* Diagnosis Liver lesion- Primary Other specified disorders of liver [facility] Diagnosis Gastroparesis- Primary documented in this encounter [facility] note* Diagnosis Gastroparesis- Primary documented in this encounter [facility] note* Diagnosis Irritable bowel syndrome with constipation- Primary Irritable bowel syndrome documented in this encounter [facility] note* Diagnosis Gastroparesis documented in this encounter [facility] note* Diagnosis Gastroparesis- Primary [facility] Diagnosis SOB (shortness of breath) Shortness of breath [facility]* Diagnosis Liver lesion Other specified disorders of liver documented in this encounter [facility] note* Diagnosis Elevated LFTs Other abnormal blood chemistry documented in this encounter [facility] note* Diagnosis Bilious vomiting with nausea Right sided abdominal pain Abdominal pain, unspecified site Nausea Nausea alone documented in this encounter [facility] note* Diagnosis Nausea Nausea alone documented in this encounter [facility] note* Diagnosis Gastroparesis- Primary documented in this encounter [facility] note* Diagnosis Syncope and collapse- Primary documented in this encounter [facility] note* Diagnosis Syncope, unspecified syncope type- Primary documented in this encounter [facility] note* Diagnosis Syncope, unspecified syncope type- Primary documented in this encounter [facility] general Narrative - Reported* Type Description Date Medical History Anxiety Medical History Depression Medical History Diverticulosis Medical History bipolar Surgical History C section Surgical History hysterectomy Hospitalization History see above Hospitalization History diverticulitis 01/24/18 Hospitalization History NONE ON THE LAST YEAR [employer] Other Hospital course Narrative No data available for this section [facility] No data available for this section [facility] No data available for this section [facility] Outpatient Procedure (Routine) - Authorized Specialty Diagnoses / Procedures Referred By Norma kennedy Referred To Contact [facility] Diagnoses Bilious vomiting with nausea Right sided abdominal pain Procedures EGD DIAGNOSTIC ESOPHAGOGASTRODUODENOSC OPY [place] [address] [place] [address] [facility] [address] [place] [address] Referral ID Status Reason Start Date Expiration Date Visits Requested Visits Authorized [id number] Authorized Auto-Generat ed Referral 05/27/2022 05/27/2023 1 1 * MRI/CT (Routine) - Authorized Specialty Diagnoses / Procedures Referred By Norma kennedy Referred To Contact CT IMAGING Diagnoses Bilious vomiting with nausea Right sided abdominal pain Nausea Procedures CT ABD/PEL WO IVCON CT ABD & PELVIS W/O CONTRAST [place] [address] [address] [place] [address] Ct Imaging Referral ID Status Reason Start Date Expiration Date Visits Requested Visits Authorized [id number] Authorized Auto-Generat ed Referral 05/27/2022 06/26/2023 1 1 [facility] for referral (narrative)* Diagnostic Procedure Only (Routine) - Authorized Specialty Diagnoses / Procedures Referred By Contac t Referred To Contact [facility] IMAG[facility] Diagnoses Liver lesion Procedures US ABD RT UPPER QUADRANT US ABDOMINAL REAL TIME W/IMAGE LIMITED Carol Winn [place] [id number] [place] [address] [facility] Referral ID Status Reason Start Date Expiration Date Visits Requested Visits Authorized [id number] Authorized Auto-Generat ed Referral 06/14/2022 07/14/2023 1 1 [facility] for referral (narrative)* Diagnostic Procedure Only (Routine) - Closed Specialty Diagnoses / Procedures Referred By Contac t Referred To Contact [facility] IMAG[facility] Diagnoses Liver lesion Procedures US ABD RT UPPER QUADRANT US ABDOMINAL REAL TIME W/IMAGE LIMITED Carol Winn [place] [id number] [place] [address] [place] [address] Referral ID Status Reason Start Date Expiration Date V isits Requested Visits Authorized [id number] Closed Auto-Generate d Referral 06/14/2022 07/14/2023 1 1 [facility] for referral (narrative)* Diagnostic Procedure Only (Routine) - Closed Specialty Diagnoses / Procedures Referred By Contac t Referred To Contact US IMAGING Diagnoses Elevated LFTs Procedures US ABD RT UPPER QUADRANT US ABDOMINAL REAL [place] W/[place] [address] [place] [address] [facility] [address] Referral ID Status Reason Start Date Expiration Date V isits Requested Visits Authorized [id number] Closed Auto-Generate d Referral 11/24/2021 12/24/2022 1 1 [facility] for referral (narrative)* Diagnostic Procedure Only (Routine) - Closed Specialty Diagnoses / Procedures Referred By Contac t Referred To Contact [facility]AL [facility] Diagnoses Nausea Procedures NM GASTRIC EMPTYING SOLID [place]STRIC [place] [address] [place] [address] [facility] [address] [id number] Referral ID Status Reason Start Date Expiration Date V isits Requested Visits Authorized [id number] Closed Auto-Generate d Referral 08/31/2022 09/30/2023 1 1 [facility] for referral (narrative)* Outpatient Procedure (Routine) - Authorized Specialty Diagnoses / Procedures Referred By Norma t Referred To Contact [facility] Diagnoses Gastroparesis Procedures ECG COMPLETE ECG ROUTINE ECG W/LEAST 12 LDS W/I&R Solo Mora MD [address] [place] [address] [facility]Note 2] [place] [employer] [address] Referral ID Status Reason Start Date Expiration Date Visits Requested Visits Authorized [id number] Authorized Auto-Generat ed Referral 11/02/2023 11/01/2024 1 1 [facility] for referral (narrative)* Outpatient Procedure (Routine) - Authorized Specialty Diagnoses / Procedures Referred By Contac t Referred To Contact [facility] Diagnoses Syncope and collapse Procedures ECG COMPLETE ECG ROUTINE ECG W/LEAST 12 LDS W/I&R Solo Mora MD [address] [id number] [facility] [place] [address] [place] [address] Referral ID Status Reason Start Date Expiration Date Visits Requested Visits Authorized [id number] Authorized Auto-Generat ed Referral 12/19/2023 12/18/2024 1 1 [facility] for visit NarrativePATIENT HERE AT THE REQUEST OF DR. HAGEN FOR ENGLISH & ABNORMAL US. ULTRASOUND AND LABS IN REFERRAL. PATIENT STATES SHE FEELS LETHARGIC & HAS OCCASIONAL ABDOMINAL PAINRochester [employer] Other [facility] Narrative* Diagnostic Procedure Only (Routine) - Closed Specialty Diagnoses / Procedures Referred By Contac t Referred To Contact US IMAGING Diagnoses Liver lesion Procedures US ABD RT UPPER QUADRANT US ABDOMINAL REAL [place] W/[place] [address] [place] [address] Us Imaging [facility] Referral ID Status Reason Start Date Expiration Date V isits Requested Visits Authorized [id number] Closed Auto-Generate d Referral 06/14/2022 07/14/2023 1 1 [facility] for visit Narrative* Diagnostic Procedure Only (Routine) - Closed Specialty Diagnoses / Procedures Referred By Contmusa t Referred To Contact US IMAGING Diagnoses Elevated LFTs Procedures US ABD RT UPPER QUADRANT US ABDOMINAL REAL [place] W/[place] [address] [facility] [place] [address] Us Imaging [facility] Referral ID Status Reason Start Date Expiration Date V isits Requested Visits Authorized [id number] Closed Auto-Generate d Referral 11/24/2021 12/24/2022 1 1 [facility] for visit Narrative* Diagnostic Procedure Only (Routine) - Closed Specialty Diagnoses / Procedures Referred By Contmusa t Referred To Contact [facility]LECULAR [facility] FUNCTIONAL IMAGING Diagnoses Nausea Procedures NM GASTRIC EMPTYING SOLID GASTRIC [place] [address] [place] [address] Molecular [facility] [address] [id number] Referral ID Status Reason Start Date Expiration Date V isits Requested Visits Authorized [id number] Closed Auto-Generate d Referral 08/31/2022 09/30/2023 1 1 [facility] Summary Purpose Family History No Family History Records FoundNo Family History Records FoundNo Family History Records FoundNo Family History Records FoundNo Family History Records FoundNo Family History Records FoundNo Family History Records FoundNo Family History Records Found No data available for this section No Family History Records FoundNo Family History [...] Referred By Norma kennedy Referred To Contact [facility] Diagnoses Syncope, unspecified syncope type Procedures CARDIOVASCULAR MEDICINE OP FOLLOW UP APPT ORDER Solo Mora MD [address] [place] [address] [facility] [address] [address] Referral ID Status Reason Start Date Expiration Date Visits Requested Visits Authorized [id number] Ref Not Required PCP Requested Referral 12/28/2023 12/27/2024 1 1 Specialty Diagnoses / Procedures Referred By Norma kennedy Referred To Contact [facility] Diagnoses Syncope, unspecified syncope type Procedures STRESS ECHO TREADMILL ECHO TTHRC R-T 2D W/WO M-MODE COMPLETE REST&ST Solo Mora MD [address] [place] [address] [facility] [place]Note 2] Vascular [address] [address] Referral ID Status Reason Start Date Expiration Date Visits Requested Visits Authorized [id number] Authorized Auto-Generat ed Referral 12/19/2023 12/18/2024 1 1 Specialty Diagnoses / Procedures Referred By Norma kennedy Referred To Contact CT IMAGING Diagnoses Bilious vomiting with nausea Right sided abdominal pain Nausea Procedures CT ABD/PEL WO IVCON CT ABD & PELVIS W/[place] [address] [place] [address] [place] [address] Referral ID Status Reason Start Date Expiration Date V isits Requested Visits Authorized [id number] Closed Auto-Generate d Referral 05/27/2022 06/26/2023 1 1 Additional Source Comments INFORMATION SOURCE (unrecogn ized section and content) DATE CREATED AUTHOR 11/09/2018 [facility] DATE CREATED AUTHOR AUTHOR'S ORGANIZ ATION 08/23/2021 [facility] dical Specialist DATE CREATED AUTHOR AUTHOR'S ORGANIZ ATION 07/17/2022 [facility] DATE CREATED AUTHOR AUTHOR'S ORGANIZ ATION 10/29/2022 [facility] DATE CREATED AUTHOR AUTHOR'S ORGANIZ ATION 10/31/2022 [facility] DATE CREATED AUTHOR AUTHOR'S ORGANIZ ATION 03/22/2023 [facility] DATE CREATED AUTHOR AUTHOR'S ORGANIZ ATION 03/28/2023 [facility] DATE CREATED AUTHOR AUTHOR'S ORGANIZ ATION 12/29/2023 [facility] DATE CREATED AUTHOR AUTHOR'S ORGANIZ ATION 01/01/2024 [facility] DATE CREATED AUTHOR AUTHOR'S ORGANIZ ATION 01/11/2024 [facility] dical Specialists [employer] Care Teams (unrecognized sec tion and content) Team Status: Active Member Role Status Dates Giovani Hagen MD Primary Care Provider Active Team Status: Inactive Member Role Status Dates Erwin Hylton MD Attending Provider Active Giovani Hagen MD Primary Care Provider Active [employer] Team Leader Relationship Specialty Start Date End Date Giovani Hagen [address] [facility] [address] [place] [address] PCP - General Family Medicine 03/27/19 [employer] Team Leader Relationship Specialty Start Date End Date Giovani Hagen [address] [facility] [address] [place] [address] PCP - General Family Medicine 03/27/19 [employer] Team Leader Relationship Specialty Start Date End Date HieuGiovani mcclellan Mabalay [address] [place] [address] [place] [address] PCP - General Family Medicine 03/27/19 [employer] Team Leader Relationship Specialty Start Date End Date KanevilleGiovani mcclellan Mabalay [address] [place] [address] [place] [address] PCP - General Family Medicine 03/27/19 [employer] Team Leader Relationship Specialty Start Date End Date KanevilleGiovani Mabalay [address] [place] [address] [place] [address] PCP - General Family Medicine 03/27/19 [employer] Team Leader Relationship Specialty Start Date End Date KanevilleGiovani mcclellan Mabalay [address] [place] [address] [place] [address] PCP - General Family Medicine 03/27/19 [employer] Team Leader Relationship Specialty Start Date End Date KanevilleGiovani mcclellan Mabalay [address] [place] [address] [place] [address] PCP - General Family Medicine 03/27/19 [employer] Team Leader Relationship Specialty Start Date End Date HieuGiovani mcclellan Mabalay [address] [place] [address] [place] [address] PCP - General Family Medicine 03/27/19 [employer] Team Leader Relationship Specialty Start Date End Date KanevilleGiovani Mabalay [address] [place] [address] [place] [address] PCP - General Family Medicine 03/27/19 [employer] Team Leader Relationship Specialty Start Date End Date HieuGiovani Mabalay [address] [place] [address] [place] [address] PCP - General Family Medicine 03/27/19 [employer] Team Leader Relationship Specialty Start Date End Date HieuNikoen Mabalay [address] [place] [address] [place] [address] PCP - General Family Medicine 03/27/19 [employer] Team Leader Relationship Specialty Start Date End Date Giovani Hagen [address] [place] [address] [place] [address] PCP - General Family Medicine 03/27/19 [employer] Team Leader Relationship Specialty Start Date End Date Giovani Hagen [address] [place] [address] [place] [address] PCP - General Family Medicine 03/27/19 [employer] Team Leader Relationship Specialty Start Date End Date Giovani Hagen [address] [place] [address] [place] [address] PCP - General Family Medicine 03/27/19 [employer] Team Leader Relationship Specialty Start Date End Date Giovani Hagen MD [address] [place] [address] [place] [address] PCP - General Family Medicine 03/27/19 [employer] Team Leader Relationship Specialty Start Date End Date Giovani Hagen MD [address] [place] [address] [place] [address] PCP - General Family Medicine 03/27/19 [employer] Team Leader Relationship Specialty Start Date End Date Giovani Hagen MD [address] [place] [address] [place] [address] PCP - General Family Medicine 03/27/19 [employer] Team Leader Relationship Specialty Start Date End Date Giovani Hagen MD [address] [place] [address] [place] [address] PCP - General Family Medicine 03/27/19 [employer] Team Leader Relationship Specialty Start Date End Date Giovani Hagen MD [address] [place] [address] [place] [address] PCP - General Family Medicine 03/27/19 [employer] Team Leader Relationship Specialty Start Date End Date Giovani Hagen MD [address] [place] [address] [place] [address] PCP - General Family Medicine 03/27/19 [employer] Team Leader Relationship Specialty Start Date End Date Giovani Hagen MD [address] [facility] [address] [place] [address] PCP - General Family Medicine 03/27/19 [employer] Team Leader Relationship Specialty Start Date End Date Giovani Hagen MD [address] [facility] [address] [place] [address] PCP - General Family Medicine 03/27/19 [employer] Team Leader Relationship Specialty Start Date End Date Giovani Hagen MD [address] [facility] [address] [place] [address] PCP - General Family Medicine 03/27/19 [employer] Team Leader Relationship Specialty Start Date End Date Giovani Hagen MD [address] [facility] [address] [place] [address] PCP - General Family Medicine 03/27/19 [employer] Team Leader Relationship Specialty Start Date End Date Giovani Hagen MD [address] [facility] [address] [place] [address] PCP - General Family Medicine 03/27/19 Source Comments (unrecognize d section and content) In the event this informatio n is protected by the Federal Confidentiality of Alcohol and Drug Abuse Patient Records regulations: The Federal rules restrict any use of the information to criminally investigate or prosecute any alcohol or drug abuse patient.[facility] the event this information is protected by the Federal Confidentiality of Alcohol and Drug Abuse Patient Records regulations: The Federal rules restrict any use of the information to criminally investigate or prosecute any alcohol or drug abuse patient.[facility] Hospital[facility] the event this information is protected by the Federal Confidentiality of Alcohol and Drug Abuse Patient Records regulations: The Federal rules restrict any use of the information to criminally investigate or prosecute any alcohol or drug abuse patient.[facility] Hospital[facility] the event this information is protected by the Federal Confidentiality of Alcohol and Drug Abuse Patient Records regulations: The Federal rules restrict any use of the information to criminally investigate or prosecute any alcohol or drug abuse patient.[facility] HospitalIn the event this information is protected by the Federal Confidentiality of Alcohol and Drug Abuse Patient Records regulations: The Federal rules restrict any use of the information to criminally investigate or prosecute any alcohol or drug abuse patient.[facility] HospitalIn the event this information is protected by the Federal Confidentiality of Alcohol and Drug Abuse Patient Records regulations: The Federal rules restrict any use of the information to criminally investigate or prosecute any alcohol or drug abuse patient.[facility] HospitalIn the event this information is protected by the Federal Confidentiality of Alcohol and Drug Abuse Patient Records regulations: The Federal rules restrict any use of the information to criminally investigate or prosecute any alcohol or drug abuse patient.[facility] HospitalIn the event this information is protected by the Federal Confidentiality of Alcohol and Drug Abuse Patient Records regulations: The Federal rules restrict any use of the information to criminally investigate or prosecute any alcohol or drug abuse patient.[facility] HospitalIn the event this information is protected by the Federal Confidentiality of Alcohol and Drug Abuse Patient Records regulations: The Federal rules restrict any use of the information to criminally investigate or prosecute any alcohol or drug abuse patient.[facility] HospitalIn the event this information is protected by the Federal Confidentiality of Alcohol and Drug Abuse Patient Records regulations: The Federal rules restrict any use of the information to criminally investigate or prosecute any alcohol or drug abuse patient.[facility] HospitalIn the event this information is protected by the Federal Confidentiality of Alcohol and Drug Abuse Patient Records regulations: The Federal rules restrict any use of the information to criminally investigate or prosecute any alcohol or drug abuse patient.[facility] HospitalIn the event this information is protected by the Federal Confidentiality of Alcohol and Drug Abuse Patient Records regulations: The Federal rules restrict any use of the information to criminally investigate or prosecute any alcohol or drug abuse patient.[facility] HospitalIn the event this information is protected by the Federal Confidentiality of Alcohol and Drug Abuse Patient Records regulations: The Federal rules restrict any use of the information to criminally investigate or prosecute any alcohol or drug abuse patient.[facility] HospitalIn the event this information is protected by the Federal Confidentiality of Alcohol and Drug Abuse Patient Records regulations: The Federal rules restrict any use of the information to criminally investigate or prosecute any alcohol or drug abuse patient.[facility] HospitalIn the event this information is protected by the Federal Confidentiality of Alcohol and Drug Abuse Patient Records regulations: The Federal rules restrict any use of the information to criminally investigate or prosecute any alcohol or drug abuse patient.[facility] HospitalIn the event this information is protected by the Federal Confidentiality of Alcohol and Drug Abuse Patient Records regulations: The Federal rules restrict any use of the information to criminally investigate or prosecute any alcohol or drug abuse patient.[facility] HospitalIn the event this information is protected by the Federal Confidentiality of Alcohol and Drug Abuse Patient Records regulations: The Federal rules restrict any use of the information to criminally investigate or prosecute any alcohol or drug abuse patient.[facility] HospitalIn the event this information is protected by the Federal Confidentiality of Alcohol and Drug Abuse Patient Records regulations: The Federal rules restrict any use of the information to criminally investigate or prosecute any alcohol or drug abuse patient.[facility] HospitalIn the event this information is protected by the Federal Confidentiality of Alcohol and Drug Abuse Patient Records regulations: The Federal rules restrict any use of the information to criminally investigate or prosecute any alcohol or drug abuse patient.[facility] HospitalIn the event this information is protected by the Federal Confidentiality of Alcohol and Drug Abuse Patient Records regulations: The Federal rules restrict any use of the information to criminally investigate or prosecute any alcohol or drug abuse patient.[facility] HospitalIn the event this information is protected by the Federal Confidentiality of Alcohol and Drug Abuse Patient Records regulations: The Federal rules restrict any use of the information to criminally investigate or prosecute any alcohol or drug abuse patient.[facility] HospitalIn the event this information is protected by the Federal Confidentiality of Alcohol and Drug Abuse Patient Records regulations: The Federal rules restrict any use of the information to criminally investigate or prosecute any alcohol or drug abuse patient.[facility] HospitalIn the event this information is protected by the Federal Confidentiality of Alcohol and Drug Abuse Patient Records regulations: The Federal rules restrict any use of the information to criminally investigate or prosecute any alcohol or drug abuse patient.[facility] HospitalIn the event this information is protected by the Federal Confidentiality of Alcohol and Drug Abuse Patient Records regulations: The Federal rules restrict any use of the information to criminally investigate or prosecute any alcohol or drug abuse patient.[facility] HospitalIn the event this information is protected by the Federal Confidentiality of Alcohol and Drug Abuse Patient Records regulations: The Federal rules restrict any use of the information to criminally investigate or prosecute any alcohol or drug abuse patient.[facility] HospitalIn the event this information is protected by the Federal Confidentiality of Alcohol and Drug Abuse Patient Records regulations: The Federal rules restrict any use of the information to criminally investigate or prosecute any alcohol or drug abuse patient.[facility] HospitalIn the event this information is protected by the Federal Confidentiality of Alcohol and Drug Abuse Patient Records regulations: The Federal rules restrict any use of the information to criminally investigate or prosecute any alcohol or drug abuse patient.[facility] HospitalIn the event this information is protected by the Federal Confidentiality of Alcohol and Drug Abuse Patient Records regulations: The Federal rules restrict any use of the information to criminally investigate or prosecute any alcohol or drug abuse patient.[facility] HospitalIn the event this information is protected by the Federal Confidentiality of Alcohol and Drug Abuse Patient Records regulations: The Federal rules restrict any use of the information to criminally investigate or prosecute any alcohol or drug abuse patient.[facility] HospitalIn the event this information is protected by the Federal Confidentiality of Alcohol and Drug Abuse Patient Records regulations: The Federal rules restrict any use of the information to criminally investigate or prosecute any alcohol or drug abuse patient.[facility] Reason for Visit (unrecogniz ed section and content) Reason Comments Liver Disease Hepatic Steatosis Reason Comments Radiology CT Reason Comments Results Reason Comments Appointment Reason Comments Gastroparesis EGG test Reason Comments Medication Preauthorization M[employer]ity Reason Comments Consult Reason Comments Medication Preauthorization PA for [facility] la Specialty Diagnoses / Procedures Referred By Contmusa t Referred To Contact CT IMAGING Diagnoses Bilious vomiting with nausea Right sided abdominal pain Nausea Procedures CT ABD/PEL WO IVCON CT ABD & P[place] [address] [place] [address] [place] [address] Referral ID Status Reason Start Date Expiration Date V isits Requested Visits Authorized [id number] Closed Auto-Generate d Referral 05/27/2022 06/26/2023 1 [...] BE BASED ON THE PRIMARY CLINICAL RECORDS. [facility]. provides no warranty or guarantee of the accuracy or completeness of information in this document.
== END 2024-01-12 16:45 | disposition home or self-care (01) ==
LOC: RAD 16:44
PROVIDERS: PCP Family Medicine; Visit Provider Family Medicine
DX: M54.12 Radiculopathy, cervical region (principal)
CPT/HCPCS: 72040

== ENCOUNTER 2024-03-04 08:00 | Outpatient (OUT) | payer OTHER, SELFPAY ==
--- NOTE | 2024-03-04 | XR_ITS ---
The [address] [address] Patient Name: ORION HARPER MRN: [facility]:[id number] date: 1990 Sex: F Assigned Patient Location: Current Patient Location: Accession/Order Number: [id number] Exam Date: 03/04/2024 08:02 Report Date: 03/06/2024 07:20 At the request of: LAURIE NAVAS Procedure: XR ankle RT min 3V PROCEDURE: XR ankle RT min 3V COMPARISON: 01/10/2024 HISTORY: RIGHT ANKLE PAIN FINDINGS: BONES:New calcific density identified along the medial aspect of the medial malleolus measuring 4 x 1 mm and size, avulsion fracture is suspected. No dislocation. SOFT TISSUES:Negative. No visible soft tissue swelling. EFFUSION:None visible. OTHER: Negative. XR/XR ankle RT min 3V IMPRESSION: Suspected 4 mm avulsion fracture medial aspect of the medial malleolus Electronically authenticated by: JACKSON BUTLER Date: 03/06/2024 07:20
--- OUTSIDE RECORDS SUMMARY | 2024-03-04 08:21 | XMS_ITS | CCD ---
Author Organization [facility] Care Team Providers Care Disease Case Manager Rn Name Role Phone SHIVANI MONTEIRO Referring Unavailable GIOVANI HAGEN Primary Care Unavailable MD Erwin Hylton Attending Provider [phone] MD Giovani Hagen Primary Care Provider [phone] Giovani Hagen Primary Care Provider Erwin Hylton [...] Unavailable Jackson Adkins Consulting Unavailable POPPY ., ALYEEN Consulting Unavailable REINECK, DR RONALD Mccarthy Attending Unavailabl e REINECK, DR RONALD Mccarthy Admitting Unavailabl e MISC, DR MCKEON Primary Care Unavailable REDMARIA DOLORES WEBSTER Unavailable ASAAD, IMAD Consulting Unavailable HIEU, DR [...] Consulting Unavailable MD Erwin Hylton Attending Provider [phone] MD Giovani Hagen Primary Care Provider [phone] DAKHIL, NOMA Ref[facility] Un[facility] DAKHIL, NOMA Referring [facility] Unavailable DAKHIL, NOMA Referring Un[facility] Unavailable MARIA DOLORES COREY Referring Un[facility] Unavailable Asaad, Imad Admitting Unavailable Asaad, Imad Attending [facility] Asaad, Imad Admitting Unavailable Asaad, Imad Attending Un[facility] Provider [phone] BLOODMARY Admitting Unavailable BLOOD, MARY Culver Attending Unavailable JACKSON MONTENEGRO Consulting Unavailable SONIYA PATEL [facility] Unavailable MAKENNA AMAYA Consulting Unavailable [facility] Primary Care Provider [phone] Madhuri MISHRA Attending Unavailable BHAVESH DEJESUS Attending Unavailable Giovani Hagen MD Unavailable Giovani Hagen MD Primary Care Provider [phone] SOLO MORA Referring Unavailable HIEU, RUGEN MABALAY Primary Care Unavailable SOLO MORA Attending Unavailable HIEU, RUGEN MABALAY Primary Care Unavailable HIEU, RUGEN MABALAY Primary Care Unavailable HIEUGIOVANI Mcclellan Attending Unavailable HIEU, GIOVANI Bob Attending Unavailable CADE WILCOX Attending Unavailable HIEUGIOVANI Attending Unavailable HIEUGIOVANI Attending Unavailable HIEU, GIOVANI Bob Attending Unavailable AKUA DU Attending Unavailable HIEU, GIOVANI Bob Attending Unavailable DARWIN STARR Attending Unavailable JUMANA BURGESS Attending Unavailable HIEU, RUGBETY M Referring Unavailable HIEUGIOVANI Attending Unavailable ARUN HERNADEZ Attending Unavailable HIEU, RUGEN M Referring Unavailable JUMANA BURGESS Attending Unavailable HIEUKIRANEN M Referring Unavailable ARUN HERNADEZ Attending Unavailable HIEU, RUGEN M Referring Unavailable KENYA SANCHEZ Attending Unavailable HIEUKIRANEN M Referring Unavailable KENYA SANCHEZ Attending Unavailable HIEU, RUGEN M Referring Unavailable Allergies Allergy Classification Reported Allergen(s) Allergy Type Date of Onset Reaction(s) Facility Iodine (and Iodine containting drugs) (2 sources) Iodine Drug Allergy 04-11-20 19 Swelling, Itching [facility] Iohexol (2 sources) Iohexol Drug Allergy 04-12-20 19 Itching [facility] (20 sources) Iodine; Translations: [IODINE] Drug Allergy 04-11-20 19 Swelling, Itching [facility] (20 sources) Iohexol; Translations: [IOHEXOL] Drug Allergy 04-12-20 19 Itching [facility] (1 source) Cat Propensity to adverse reactions anaphylaxis [employer] [facility] [employer] Other (1 source) tree nut, unspecified Propensity to adverse reactions anaphylaxis [employer] [facility] [employer] Other (1 source) peanut allergenic extract Drug Allergy [facility] (1 source) Cat/Feline Product Derivatives Drug allergy (disorder) 01-08-20 13 [facility] (1 source) No Known Medication Allergies; Translations: [No Known Medication Allergies] Propensity to adverse reactions (disorder) [facility] (17 sources) Cat Hair Extract Allergy to substance 12-01-19 Anaphylaxis [facility] (17 sources) Iodinated Contrast Media Drug Allergy 12-01-19 23 Hives [facility] (17 sources) Prednisone & Diphenhydramine Drug Allergy 10-03-19 24 [facility] Medications Current Medications Medication Drug Class(es) Dates Sig (Normalized) Sig (Original) acetaminophen 1000 mg oral tablet (3 sources) Start: 06-12-2018 take 1000 mg by mouth once daily as needed for pain Tylenol 1,000 mg, Oral, Daily, PRN as needed for pain, Refills(s) 0 Start Date: 06/12/18 Status: Ordered [id number] actuat albuterol 0.09 mg/actuat metered dose inhaler (20 sources) beta2-Adrenergic Agonist Start: 08-31-2022 take 2 puff(s) by inhalation every six hours as needed albuterol HFA 90 mcg/act inhaler INHALE 2 PUFFS INTO THE LUNGS EVERY 6 HOURS NEEDED FOR 30 DAYS 08/31/2022 Active Start: 12-17-2018 albuterol 2 pu ffs every 4 hours as needed for SOB/wheezing, Refills(s) 0 Start Date: 12/17/18 Status: Ordered take 2 puff(s) by in halation every four hours as needed Albuterol Sulfate HFA 108 (90 Base) MCG/ACT 2 puff as needed Inhalation every 4 hrs Active ALPRAZolam 0.5 mg oral tablet (20 sources) Benzodiazepine Start: 01-09-2024 End: 03-07-2024 take 1 tablet by mouth in the morning ALPRAZolam (Xanax) 0.5 MG tablet Indications: Anxiety , Bipolar disorder, in partial remission, most recent episode manic (CMS/HCC) Take 1 tablet (0.5 mg) by mouth in the morning and in the evening 60 tablet 02/06/2024 03/07/2024 Active Start: 02-18-2019 take 0.25 mg by mout h twice daily ALPRAZolam (XANAX) 0.5 mg tablet [...] sulfate 7.5 mg extended release oral capsule (20 sources) Central Nervous System Stimulant Start: 01-09-20 End: 03-21-20 take 1 capsule by mouth once daily amphetamine-dextroam phetamine XR (Adderall XR) 30 MG 24 hr capsule Indications: Attention deficit hyperactivity disorder (ADHD), predominantly inattentive type (CMS/HCC) Take 1 capsule (30 mg) by mouth Daily Do not crush or chew. 30 capsule 02/20/2024 03/21/2024 Active take 1 capsule by mo dch once daily amphetamine-dextroamphetamine XR (ADDERA LL XR) 30 mg capsule Take 30 mg by mouth once daily. Active baclofen 10 mg oral tablet (20 sources) gamma-Aminobutyric Acid-ergic Agonist Start: 12-26-2023 take 1 tablet by mouth in the morning, then take 1 tablet by mouth in the evening, then take 1 tablet by mouth at bedtime baclofen (Lioresal) 10 MG tablet Indications: Cervical radiculopathy , Acute nonintractable headache, unspecified headache type Take 1 tablet (10 mg) by mouth in the morning and 1 tablet (10 mg) in the evening and 1 tablet (10 mg) before bedtime. 90 tablet 12/26/2023 Active Start: 06-29-2022 baclofen Oral, TID Start Date: 06/29/22 Status: Ordered Start: 05-25-2022 End: 11-02-2022 baclofen (LIORESAL) 10 mg ta blet 05/25/2022 11/02/2022 Discontinued bismuth subcitrate 140 mg / metroNIDAZOLE 125 mg / tetracycline hydrochloride 125 mg oral capsule (1 source) Nitroimidazole Antimicrobial, Tetracycline-class Antimicrobial Start: 07-04-2022 End: 07-14-2022 take 3 capsules by mouth at bedtime Bis Subcit Pkb-Jfdkl-Auflyblp (PYLERA) 140-125-125 mg per capsule Take 3 [...] capsule (20 sources) Atypical Antipsychotic Start: 12-28-2023 End: 12-19-2023 take 1 mg by mouth once daily Vraylar 4.5 mg oral capsule mg cap(s), Oral, Daily Start Date: 12/28/23 Status: Ordered Start: 08-14-2023 End: 12-19-2023 take 1 capsule by mouth once daily Vraylar 4.5 MG capsule Indications: Bipolar disorder, in partial remission, most recent episode manic (CMS/HCC) TAKE 1 CAPSULE BY MOUTH EVERY DAY 30 capsule 5 08/14/2023 Active Start: 05-01-2019 take 1 capsule by mo uth once daily Vraylar 1.5 mg oral capsule 1.5 mg = 1 cap(s), Oral, Daily Start Date: 05/01/19 Status: Ordered take 1 capsule by mo uth once daily cariprazine (VRAYLAR) 3 mg cap Take by mouth once daily. 0 Active Vraylar Active Comment on above: Take by mouth once d aily. 1 capsule. cephalexin 250 mg oral tablet (3 sources) Cephalosporin Antibacterial Start: 12-28-2023 Keflex 250 mg Cap See Instructions, 1 cap po after intercourse to prevent UTI, # 20 cap(s), Refills(s) 2, Pharmacy: [facility]/pharmacy #[id number], 158, cm, 12/28/23 15:24:00 [...] days., # 50 cap(s), Refills(s) 0, Pharmacy: [facility]/pharmacy #[id number], 158, cm, 06/29/22 8:19:00 EST, Height/Length Dosing, 84.8, kg, 06/29/22 8:19:00 EST, Weigh... Start Date: 06/29/22 Status: Ordered clobetasol propionate 0.5 mg/ml topical cream (16 sources) Corticosteroid Start: 01-22-2024 End: 03-22-2024 clobetasol (Temovate) 0.05 % cream Indications: Dyspareunia in female , Urethral pain Apply 1 application topically Daily Apply pea-size amount daily for 30 days and then every other day for another 30 days. 60 g 1 01/22/2024 03/22/2024 Active 0.3 ml EPINEPHrine 1 mg/ml prefilled syringe (16 sources) alpha-Adrenergic Agonist, beta-Adrenergic Agonist, Catecholamine Start: 04-18-2023 EPINEPHrine (Adrenalin) 0.3 MG/0.3ML injection Indications: Anaphylaxis, sequela Inject 0.3 mL (0.3 mg) into the shoulder, thigh, or buttocks 1 (one) time for 1 dose 1 each 2 04/18/2023 Active EpiPen prn Activ e escitalopram 20 mg oral tablet (17 sources) Serotonin Reuptake Inhibitor Start: 11-09-2023 take 1 tablet by mouth once daily in the morning escitalopram (Lexapro) 20 MG tablet Indications: Bipolar disorder, in partial remission, most recent episode manic (CMS/HCC) TAKE 1 TABLET BY MOUTH EVERY DAY IN THE MORNING 30 tablet 2 11/09/2023 Active estrogens, conjugated (chcf) 0.625 mg/ml vaginal cream (20 sources) Estrogen Start: 02-06-2024 End: 03-07-2024 Estrogens Conjugated (Premarin) 0.625 MG/GM cream Indications: Dyspareunia in female Insert 0.5 Applicatorfuls into the vagina at bedtime 30 g 3 02/06/2024 03/07/2024 Active Start: 05-26-2022 End: 11-02-2022 PREMARIN vaginal cream 05/2611/02/2022 Discontinued Premarin 0.625 M G/GM as directed Vaginal 3 TIMES A WEEK Active 30 actuat fluticasone furoate 0.1 mg/actuat / umeclidinium 0.0625 mg/actuat / vilanterol 0.025 mg/actuat dry powder inhaler (20 sources) Anticholinergic, Corticosteroid, beta2-Adrenergic Agonist Start: 05-24-2022 take 1 puff(s) by inhalation once daily Pmjlrpviltx-Wvzaoneqa-Dfmaeo 100-62.5-25 MCG/ACT aerosol powder INHALE 1 PUFF INTO THE LUNGS EVERY DAY FOR 30 DAYS 05/24/2022 Active Start: 05-24-2022 End: 11-02-2022 TRELEGY ELLIPTA 100-62.5-25 mcg inhalation powder 05/24/2022 11/02/2022 Discontinued furosemide 20 mg oral tablet (13 sources) Loop Diuretic Start: 02-06-2024 End: 03-07-2024 take 1 tablet by mouth once daily furosemide (Lasix) 20 MG tablet Indications: Localized edema Take 1 tablet (20 mg) by mouth Daily 30 tablet 02/06/2024 03/07/2024 Active ibuprofen 800 mg oral tablet (2 sources) Nonsteroidal Anti-inflammatory Drug Start: 06-12-2018 take 800 mg by mouth once daily as needed for pain ibuprofen 800 mg, Oral, Daily, PRN as needed for pain, Refills(s) 0 Start Date: 06/12/18 Status: Ordered meloxicam 15 mg oral tablet (4 sources) Nonsteroidal Anti-inflammatory Drug Start: 02-21-2024 take 1 tablet by mouth once daily meloxicam (Mobic) 15 MG tablet Indications: Acute right ankle pain Take 1 tablet (15 mg) by mouth Daily 30 tablet 2 02/21/2024 Active phentermine hydrochloride 37.5 mg oral tablet (17 sources) Sympathomimetic Amine Anorectic Start: 01-08-2024 End: 11-14-2024 take 1 tablet by mouth before mealtime phentermine (Adipex-P) 37.5 MG tablet Indications: Obesity (BMI 35.0-39.9 without comorbidity) Take 1 tablet (37.5 mg) by mouth in the morning. Take before meals. 30 tablet 02/06/2024 03/07/2024 Active Tramadol (3 sources) Opioid Agonist Start: 06-29-2022 tramadol Oral Start Date: 06/29/22 Status: Ordered Completed/Discontinued Medications Medication Drug Class(es) Dates Sig (Normalized) Sig (Original) amoxicillin 875 mg oral tablet (1 source) Penicillin-class Antibacterial Start: 05-03-2019 take 1 tablet by mouth every twelve hours Amoxicillin 875 MG 1 tablet Orally Twice a day for 7 days Apr, Not-Taking Doxepin (16 sources) Tricyclic Antidepressant Start: 12-07-2021 End: 11-02-2022 doxepin HCl (DOXEPIN ORAL) 12/07/2021 11/02/2022 Discontinued Start: 12-07-2021 End: 11-02-2022 doxepin HCl (DOXEPIN ORAL) Start: 12-07-2021 doxepin HCl (D OXEPIN ORAL) Ethinyl Estradiol / norgestimate (16 sources) Progestin, Estrogen Start: 03-26-2019 End: 11-02-2022 SPRINTEC 0.25-35 mg-mcg per tablet 03/26/2019 11/02/2022 Discontinued Start: 03-26-2019 End: 11-02-2022 SPRINTEC 0.25-35 mg-mcg per tablet Start: 03-26-2019 SPRINTEC 0.25- 35 mg-mcg per tablet lidocaine hydrochloride 20 mg/ml mucous membrane topical solution (1 source) Antiarrhythmic, Amide Local Anesthetic Start: 05-03-2019 take 15 mL by mouth every three hours as needed for pain Lidocaine Viscous 2 % gargle 15 ml as needed for pain Mouth/Throat every 3 hrs Apr, Not-Taking lisdexamfetamine dimesylate 10 mg oral capsule (19 sources) Central Nervous System Stimulant End: 12-19-2023 take 1 capsule by mouth once daily lisdexamfetamine (VYVANSE) 10 mg capsule Take 10 mg by mouth once daily. 12/19/2023 Discontinued (Other) take 1 capsule by mo uth every twenty-four hours Vyvanse 50 MG 1 capsule in the morning Orally Once a day Active Comment on above: Take 10 mg by mouth once daily. 50/50 release 24 hr methylphenidate hydrochloride 20 mg extended release oral capsule (16 sources) Central Nervous System Stimulant Start: End: take 1 capsule by mouth once daily in the morning methylphenidate LA (RITALIN LA) 20 mg 24 hr capsule TAKE 1 CAPSULE BY MOUTH EVERY DAY IN THE MORNING FOR 30 DAYS 03/28/2022 11/02/2022 Discontinued Comment on above: TAKE 1 CAPSULE BY [facility] EVERY DAY IN THE MORNING FOR 30 DAYS Naproxen (1 source) Nonsteroidal Anti-inflammatory Drug Naproxen Not-Taking 2 ml ondansetron 2 mg/ml injection (19 sources) Serotonin-3 Receptor Antagonist Start: End: 4 mg, INTRAVENOUS, ONCE, 1 dose, On Mon08/31/22 at 1600, Give IV push over 2 minutes Start: 06-30-2022 End: 06-30-2022 4 mg, INTRAVENOUS, ONCE, 1 d ose, On Mon06/30/22 at 1300, Give IV push over 2 minutes Start: 06-30-2022 End: 06-30-2022 4 mg, INTRAVENOUS, ONCE, 1 d ose, On Mon06/30/22 at 1230, Give IV push over 2 minutes Start: 02-08-2019 End: 11-02-2022 take 1 tablet [...] tablet (20 sources) Proton Pump Inhibitor Start: End: take 1 tablet by mouth twice daily before mealtime pantoprazole DR (PROTONIX) 40 mg tablet Indications: Helicobacter pylori gastritis Take 1 tablet by mouth twice daily before meals for 14 days. 28 tablet 09/01/2022 12/19/2023 Discontinued (Other) Start: 06-30-2022 End: 11-02-2022 take 1 tablet [...] 2 mg oral tablet (12 sources) Start: 3 End: 4 take 1 tablet by mouth once daily prucalopride 2 mg tablet (MOTEGRITY) Indications: Chronic idiopathic constipation Take 1 tablet (2 mg) by mouth once daily. 30 tablet 6 10/17/2022 12/19/2023 Discontinued (Other) Comment on above: Take 1 tablet (2 mg) by mouth once daily. sucralfate 1000 mg oral tablet (2 sources) Aluminum Complex Start: 3 End: 3 take 1 tablet by mouth twice daily before mealtime sucralfate (CARAFATE) 1 gram tablet Take 1 tablet by mouth twice daily before meals. 60 tablet 06/30/2022 07/30/2022 Comment on above: Take 1 tablet by vanna twice daily before meals. tenapanor 50 mg oral tablet (8 sources) Start: 3 End: 4 take 1 tablet by mouth twice daily tenapanor (IBSRELA) 50 mg tablet Indications: Irritable bowel syndrome with constipation Take 1 tablet (50 mg) by mouth twice daily. 60 tablet 5 11/02/2022 12/19/2023 Discontinued (Other) Comment on above: Take 1 tablet (50 mg ) by mouth twice daily. Problems Active Problems Problem Classification Problem Date Documented Da te Episodic/Chronic Abdominal pain (7 sources) Right sided abdominal pain; Translations: [Unspecified abdominal pain] Onset: 2 Episodic Anxiety disorders (20 sources) Anxiety disorder, unspecified; Translations: [Anxiety] Onset: 5 09-23-2022 Chronic Asthma (20 sources) Exercise induced bronchospasm; Translations: [Exercise induced bronchospasm] Onset: 3 09-23-2022 Chronic Attention-deficit, conduct, and disruptive behavior disorders (18 sources) Attention deficit hyperactivity disorder, predominantly inattentive type; Translations: [Attention-deficit hyperactivity disorder, predominantly inattentive type] Onset: 3 09-23-2022 Chronic Coronary atherosclerosis and other heart disease (17 sources) Atherosclerosis of coronary artery without angina pectoris; Translations: [Atherosclerotic heart disease of [place] coronary artery without angina pectoris] Onset: 2 12-12-2022 Chronic Disorders of lipid metabolism (17 sources) Hypercholesterolemia; Translations: [Pure hypercholesterolemia, unspecified] Onset: 2 12-12-2022 Chronic Diverticulosis and diverticulitis (20 sources) Diverticulosis of colon; Translations: [Diverticulosis of large intestine without perforation or abscess without bleeding] Onset: 3 Resolved: 3 09-23-2022 Chronic Epilepsy; convulsions (17 sources) Idiopathic generalized epilepsy; Translations: [Generalized idiopathic epilepsy and epileptic syndromes, not intractable, without status epilepticus] Onset: 0 12-12-2022 Chronic Esophageal disorders (17 sources) Gastroesophageal reflux disease without esophagitis; Translations: [Gastro-esophageal reflux disease without esophagitis] Onset: 0 12-12-2022 Chronic Gastroduodenal ulcer (except hemorrhage) (2 sources) Peptic ulcer; Translations: [Peptic ulcer, site unspecified, unspecified as acute or chronic, without hemorrhage or perforation] 08-31-2022 Chronic Hepatitis (19 sources) Nonalcoholic steatohepatitis; Translations: [Nonalcoholic steatohepatitis (ENGLISH)] Onset: 3 Chronic Immunizations and screening for infectious disease (5 sources) Encounter for screening for human papillomavirus (HPV); Translations: [Encounter for screening for infections with a predominantly sexual mode of transmission] Onset: 2 Episodic Miscellaneous mental health disorders (17 sources) Hypersexuality state; Translations: [Other sexual dysfunction not due to a substance or known physiological condition] Onset: 3 09-23-2022 Chronic Mood disorders (20 sources) Major depressive disorder, single episode, unspecified; Translations: [Bipolar disorder, most recent episode manic] Onset: 2 09-23-2022 Chronic Nausea and vomiting (8 sources) Bilious vomiting; Translations: [Bilious vomiting] Onset: 3 Episodic Nutritional deficiencies (17 sources) Vitamin D deficiency; Translations: [Vitamin D deficiency, unspecified] Onset: 0 12-12-2022 Chronic Occlusion or stenosis of precerebral arteries (17 sources) Bilateral atherosclerosis of carotid arteries; Translations: [Occlusion and stenosis of bilateral carotid arteries] Onset: 1 12-12-2022 Chronic Osteoarthritis (17 sources) Osteoarthritis of knee; Translations: [Osteoarthritis of knee, unspecified] Onset: 0 12-12-2022 Chronic Other female genital disorders (4 sources) Unspecified dyspareunia; Translations: [UNSPECIFIED DYSPAREUNIA] Onset: 2 Chronic Other gastrointestinal disorders (18 sources) Irritable bowel syndrome characterized by constipation; Translations: [Irritable bowel syndrome with constipation] Onset: 3 11-02-2022 Chronic Other gastrointestinal disorders (1 source) History of diverticulitis; Translations: [Personal history of other diseases of the digestive system] Episodic Other injuries and conditions due to external causes (16 sources) Injury of right ankle; Translations: [Unspecified injury of right ankle, subsequent encounter] Onset: 4 02-06-2024 Episodic Other liver diseases (1 source) Steatosis [...] Liver disease, unspecified; Translations: [Liver lesion] Onset: 3 Chronic Other liver diseases (1 source) Fatty (change of) liver, not elsewhere classified; Translations: [Fatty (change of) liver, not elsewhere classified] Onset: 3 Chronic Other liver diseases (6 sources) Abnormal levels of other serum enzymes; Translations: [ABNORMAL LEVELS OTHER SERUM ENZYMES] Onset: 3 Episodic Other lower respiratory disease (2 sources) Dyspnea; Translations: [Shortness of breath] Episodic Other nervous system disorders (17 sources) Poor concentration; Translations: [Attention and concentration deficit] Onset: 3 09-23-2022 Chronic Other nutritional; endocrine; and metabolic disorders (17 sources) Disorder of carbohydrate metabolism; Translations: [Other disorders of intestinal carbohydrate absorption] Onset: 4 10-03-2023 Chronic Other nutritional; endocrine; and metabolic disorders (16 sources) Body mass index 30+ - obesity; Translations: [Obesity, unspecified] Onset: 4 02-06-2024 Chronic Peripheral and visceral atherosclerosis (17 sources) Atherosclerosis of aorta; Translations: [Atherosclerosis of aorta] Onset: 1 12-12-2022 Chronic Residual codes; unclassified (16 sources) Localized edema; Translations: [Localized edema] Onset: 4 02-06-2024 Episodic Spondylosis; intervertebral disc disorders; other back problems (17 sources) Inflammation of sacroiliac joint; Translations: [Sacroiliitis, not elsewhere classified] Onset: 3 09-23-2022 Chronic Spondylosis; intervertebral disc disorders; other back problems (20 sources) Cervical radiculopathy; Translations: [Radiculopathy, cervical region] Onset: 3 Resolved: 3 12-26-2023 Episodic Syncope (3 sources) Syncope and collapse; Translations: [Syncope and collapse] 12-19-2023 Episodic Thyroid disorders (17 sources) Goiter; Translations: [Nontoxic goiter, unspecified] Onset: 3 09-23-2022 Chronic Unclassified (3 sources) LOW BACK PAIN, UNSPECIFIED; Translations: [LOW BACK PAIN, UNSPECIFIED] Onset: 2 Unclassified (17 sources) Patient on antidepressant monitoring plan Onset: 4 05-08-2023 Unclassified (17 sources) Baseline PHQ-9 Onset: 4 05-08-2023 Past or Other Problems Problem Classification Problem Date Documented Da te Episodic/Chronic Allergic reactions (17 sources) Anaphylaxis; Translations: [Anaphylactic shock, unspecified, initial encounter] Onset: 04-18-2023 04-18-2023 Episodic Biliary tract disease (20 sources) Cholelithiasis without obstruction; Translations: [Calculus of gallbladder without cholecystitis without obstruction] Onset: 03-23-2023 04-18-2023 Episodic Calculus of urinary tract (20 sources) Kidney stone; Translations: [Calculus of kidney] Onset: 06-30-2022 06-29-2022 Episodic Conditions associated with dizziness or vertigo (17 sources) Dizziness; Translations: [Dizziness and giddiness] Onset: 12-13-2022 12-13-2022 Episodic Diabetes mellitus without complication (17 sources) Hyperglycemia; Translations: [Hyperglycemia, unspecified] Onset: 09-23-2022 09-23-2022 Episodic E Codes: Fall (1 source) Unspecified fall, initial encounter; Translations: [UNSPECIFIED FALL INITIAL ENCOUNTER] Onset: 09-10-2021 Episodic Genitourinary symptoms and ill-defined conditions (20 sources) Dysuria; Translations: [Increased frequency of urination] Onset: 12-12-2022 Resolved: 02-06-2023 05-01-2019 Episodic Headache; including migraine (17 sources) Tension-type headache; Translations: [Tension-type headache, unspecified, not intractable] Onset: 09-23-2022 Resolved: 02-06-2023 02-06-2023 Chronic Headache; including migraine (17 sources) Acute headache; Translations: [Acute nonintractable headache] Onset: 12-13-2022 12-26-2023 Episodic Mood disorders (17 sources) Mood swings; Translations: [Emotional lability] Onset: 09-23-2022 09-23-2022 Episodic Mycoses (17 sources) Dermatophytosis; Translations: [Dermatophytosis, unspecified] Onset: 10-03-2023 10-03-2023 Episodic Other aftercare (17 sources) Postoperative visit; Translations: [Encounter for other specified surgical aftercare] Onset: 04-18-2023 04-18-2023 Episodic Other circulatory disease (17 sources) Elevated blood pressure; Translations: [Elevated blood-pressure reading, without diagnosis of hypertension] Onset: 09-23-2022 09-23-2022 Episodic Other disorders of stomach and duodenum (20 sources) Gastroparesis syndrome; Translations: [Gastroparesis] Onset: 11-02-2022 Episodic Other disorders of stomach and duodenum (2 sources) Gastroparesis; Translations: [Gastroparesis] Onset: 10-17-2022 Episodic Other gastrointestinal disorders (17 sources) Dysphagia; Translations: [Dysphagia, unspecified] Onset: 09-23-2022 09-23-2022 Episodic Other gastrointestinal disorders (17 sources) History of pancreatitis; Translations: [Personal history of other diseases of the digestive system] Onset: 04-18-2023 04-18-2023 Episodic Other infections; including parasitic (17 sources) Personal history of other infectious and parasitic diseases; Translations: [History of COVID-19] Onset: 02-06-2023 02-06-2023 Episodic Other liver diseases (18 sources) Elevated liver enzymes level; Translations: [Abnormal levels of other serum enzymes] Onset: 09-23-2022 09-23-2022 Episodic Other lower respiratory disease (1 source) Shortness of breath; Translations: [SOB (shortness of breath)] Onset: 05-27-2022 Episodic Other lower respiratory disease (17 sources) Cough; Translations: [Cough] Onset: 04-18-2023 04-18-2023 Episodic Other nervous system disorders (17 sources) Involuntary movement; Translations: [Unspecified abnormal involuntary movements] Onset: 09-23-2022 09-23-2022 Episodic Other nervous system disorders (17 sources) Pain of skin; Translations: [Other disturbances of skin sensation] Onset: 09-23-2022 09-23-2022 Episodic Other nutritional; endocrine; and metabolic disorders (17 sources) Obese class I; Translations: [Obesity (BMI 30.0-34.9)] Onset: 09-23-2022 Resolved: 02-06-2023 02-06-2023 Chronic Other nutritional; endocrine; and metabolic disorders (17 sources) Overweight; Translations: [Overweight] Onset: 02-06-2023 02-06-2023 Episodic Other nutritional; endocrine; and metabolic disorders (17 sources) Weight increased; Translations: [Abnormal weight gain] Onset: 10-03-2023 10-03-2023 Episodic Other screening for suspected conditions (not mental disorders or infectious disease) (19 sources) Ultrasound scan abnormal; Translations: [Abnormal findings on diagnostic imaging of other specified body structures] Onset: 09-23-2022 Resolved: 02-06-2023 Chronic Other screening for suspected conditions (not mental disorders or infectious disease) (20 sources) Encounter for screening for malignant neoplasm of cervix; Translations: [Other specified abnormal findings of blood chemistry] Onset: 04-06-2022 Episodic Other skin disorders (17 sources) Vesicular eczema; Translations: [Dyshidrosis [pompholyx]] Onset: 10-03-2023 10-03-2023 Episodic Other upper respiratory infections (20 sources) Maxillary sinusitis; Translations: [Chronic maxillary sinusitis] Onset: 09-23-2022 Resolved: 02-06-2023 02-06-2023 Chronic Ovarian cyst (6 sources) Other ovarian cyst, unspecified side; Translations: [Unspecified ovarian cyst, right side] Onset: 11-01-2021 Episodic Pancreatic disorders (not diabetes) (19 sources) Biliary acute pancreatitis without necrosis or infection; Translations: [Acute pancreatitis without necrosis or infection, unspecified] Onset: 03-21-2023 04-18-2023 Episodic Residual codes; unclassified (1 source) Acquired absence of both cervix and uterus; Translations: [ACQUIRED ABSENCE BOTH CERVIX AND UTERUS] Onset: 12-23-2021 Episodic Residual codes; unclassified (17 sources) Insomnia; Translations: [Insomnia, unspecified] Onset: 09-23-2022 09-23-2022 Episodic Substance-related disorders (20 sources) Smoker; Translations: [Nicotine dependence] Onset: 09-23-2022 Resolved: 02-06-2023 10-12-2018 Chronic Comment on above: Added secondary to d ocumentation in Social History. Unclassified (1 source) LOW BACK PAIN, UNSPECIFIED; Translations: [LOW BACK PAIN, UNSPECIFIED] Onset: 09-06-2021 Unclassified (2 sources) Injury of right ankle 02-06-2024 Urinary tract infections (20 sources) Recurrent urinary tract infection; Translations: [Urinary tract infectious disease] Onset: 06-29-2022 Resolved: 02-06-2023 06-29-2022 Episodic Viral infection (17 sources) COVID-19; Translations: [Other specified viral infection] Onset: 11-30-2022 Resolved: 02-06-2023 02-06-2023 Episodic Results Test Name Value Interpretation Reference Range Facility Ambulatory Visit Summaryon 0 12-28-2023 Ambulatory Visit Summary Ambulatory Visit Summary BELGICA HARPER :1990 Visit Date:12/28/2023 Ambulatory Visit Instructions Your Diagnosis Recurrent UTI Kidney stones Smoker Your Care Team Attending Physician - BHAVESH DEJESUS PA-C Primary Care Physician - GIOVANI HAGEN MD This Is Your Medications List acetaminophen (Tylenol) [...] FRIEDMAN, Madhuri Kendrick Where: [facility] [id number] Medications What How Much When Instructions Unchanged [...] you for choosing us for your care. Kelsy Villafuerte [facility] Urology Office/Clinic Noteon 12-28-2023 Urology Office/Clinic [...] UTI, # 20 cap(s), Refills(s) 2, Pharmacy: [id number], 158, cm, 12/28/23 15:24:00 EDT, Height/Length Dosing, 87, kg, 12/28/23 15:24:00 EDT, Weight Dosing E&M of Est. Patient Moderate 30-39 Min 22833 2. Kidney stones (N20.0: Calculus of kidney) S/p R ESWL. KUB 06/29/22 at [facility] - negative Metabolic workup 07/08/22 - slightly elevated Na (149), low output volume (1000 mL) KUB 11/16/23 - negative no recent flank pain, gross hematuria, stone passage. continue stone prevention diet repeat imaging 1 yr Ordered: cephalexin, See Instructions, 1 cap po after intercourse to prevent UTI, # 20 cap(s), Refills(s) 2, Pharmacy: [id number], 158, cm, 12/28/23 15:24:00 EDT, Height/Length Dosing, 87, kg, 12/28/23 15:24:00 EDT, Weight Dosing E&M of Est. Patient Moderate 30-39 Min 01173 Urnls Dip Stick Auto w/o Microscopy POC 55316 3. Smoker (F17.200: Nicotine dependence, unspecified, uncomplicated) cessation encouraged Ordered: cephalexin, See Instructions, 1 cap po after intercourse to prevent UTI, # 20 cap(s), Refills(s) 2, Pharmacy: [id number], 158, cm, 12/28/23 15:24:00 EDT, Height/Length Dosing, 87, kg, 12/28/23 15:24:00 EDT, Weight Dosing E&M of Est. Patient Moderate 30-39 Min 04880 Follow-up With When Contact Information BHAVESH DEJESUS PA-C, URL Within 1 year Additional Instructions: Patient Education Kidney Stones, Gukb-ak-Nvxy Problem List/Past Medical History Ongoing Kidney stones [...] Mother. Immunizations Vaccine Date Status Comments SARSCoV2 mRNA(cinizdhvw-wobf-m ucfilipe) vac 11/02/2021 Recorded SARS-CoV-2 (COVID-19) mRNA BNT-162b2 [...] vaccine, inactiva (more content not included)... Normal [facility] Comment on above: Result Comment: Elec tronically Signed By: BHAVESH DEJESUS PA-C\.aleena\Date and Time Signed: 12/28/23 16:01 EDT Ibrahima 12-19-2023 CNOV Office Visit (CARDMN ) BELGICA HARPER ([id number]) 1990 F Date Time Provider Department 8/27/24 2:45 PM SOLO MORA CARDMN During your visit today, we recorded the following information about you: Pulse Blood pressure Weight Height 94/minute 127/91 85.3 kg 1.575 m Solo Mora MD 12/28/2023 2:49 AM Signed [facility] [place] Meghna Hooker Department of Cardiovascular Medicine SECTION OF CARDIAC PACING and ELECTROPHYSIOLOGY OUTPATIENT VISIT DATE December 19, 2023 OUTPATIENT VISIT TYPE NEW PRIMARY CARE PHYSICIAN: Giovani Hagen MD [address] [place] [address] CHIEF COMPLAINT: Syncope, cardiac evaluation for family [...] had any workup done including Stress Echo, awake overnight monitor or 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 Reports symptoms of palpitations [...] received diphenhydramine (Benadryl) Omnipaque [Iohexol] Itching MEDICATIONS: amphetamine-dextroamp hetamine XR (ADDERALL XR) 30 mg capsuleTake 30 [...] No-Muscle or joint pain, No-stiffness, No-Joint swelling NEUROLOGIC/PSYCHIATRI C: No-Weakness, No-Paralysis, No-Numbness, No-Tingling, No-Tremor, No-Nervousness or No-anxiety, No-Depressed mood, No-Memory loss SKIN: No-Rash, Itching HEMATOLOGICAL/LYMPHAT IC: No-Easy bruising, No-Easy bleeding ENDOCRINE: No-Heat or [...] No per (more content not included)... Normal [facility] ECG COMPLETEon 12-19-2023 ECG COMPLETE Ventricular Rate : 8 8 BPM Atrial Rate : 88 BPM P-R Interval : 148 ms QRS Duration : 78 ms Q-T Interval : 380 ms QTC Calculation(Bazett) : 459 ms Calculated P [place] : 62 degrees Calculated R [place] : 55 degrees Calculated T [place] : 38 degrees NORMAL SINUS RHYTHM NORMAL ECG Confirmed by MD BAH HEBA ([id number]) on 12/30/2023 6:45:12 PM NAME : BELGICA HARPER PID : [id number] : 1990 Gender : Female Race : Other ORD : [id number] Procedure Date : Dec 19 2023 13:51:58 Edit Date : Dec 30 2023 18:45:15 Diagnosis: NORMAL SINUS RHYTHM NORMAL ECG Confirmed by MD BAH HEBA ([id number]) on 12/30/2023 6:45:12 PM Test Reason : Location : 314 : J14 J1-4 Overread By : MD BAH HEBA Edited By : MD BAH HEBA Referred By : , Acquired by : CHELSEY JOSEPH [facility] [place] 11-02-2023 ISABELN Telephone (CARDMN) MEREDITHBELGICA ([id number]) 1990 F Date Time Provider Department 11/02/23 SOLO MORA During your visit today, we recorded the following information about you: VinhCriss Hyde 11/02/2023 10:50 AM Signed Records are in [...] Status:Closed by CRISS MCCRARY on 11/02/[address] [facility] Extra Lavender Tubeon 2022 Extra Lavender Tube Normal [facility] Comment on above: Performed By: #### X LAV, LIVP, LIP #### [facility] [address] [place] [address] Coordinator Of Genetic Services: Ronald Pearce MD Lipaseon 03-24-2023 Lipase [Catalytic activity/Vol] 260 U/L High 13-60 [facility] Comment on above: Performed By: #### X LAV, LIVP, LIP #### [facility] [address] [place] [address] Coordinator Of Genetic Services: Ronald Pearce MD Liver Profileon 03-24-2023 Albumin [Mass/Vol] 3.5 g/dL Normal 3.5-5.2 [facility] Comment on above: Performed By: #### X LAV, LIVP, LIP ####[facility] [address] [place] [address] Lab Director: Ronald Pearce MD Alkaline Phos 321 U/L High 35-104 [facility] Comment on above: Performed By: #### X LAV, LIVP, LIP ####[facility] [address] [facility] [place] [address] Lab Director: Ronald Pearce MD ALT [Catalytic activity/Vol] 137 U/L High 5-33 [facility] Comment on above: Performed By: #### X LAV, LIVP, LIP ####[facility] [address] [place] [address] Lab Director: Ronald Pearce MD AST [Catalytic activity/Vol] 60 U/L High <32 [facility] Comment on above: Performed By: #### X LAV, LIVP, LIP ####[facility] [address] [place] [phone] Director: Ronald Pearce MD Bilirubin [Mass/Vol] 1.0 mg/dL Normal 0.3-1.2 [facility] Comment on above: Performed By: #### X LAV, LIVP, LIP ####[facility] [address] [place] [phone] Director: Ronald Pearce MD Bilirubin, Indirect 0.4 mg/dL Normal 0.0-1.0 [facility] Comment on above: Performed By: #### X LAV, LIVP, LIP ####[facility] [address] [place] [address] Lab Director: Ronald Pearce MD Bilirubin.indirect [Mass/Vol] 0.6 mg/dL High <0.3 [facility] Comment on above: Performed By: #### X LAV, LIVP, LIP ####[facility] [address] [place] [address] Lab Director: Ronald Pearce MD Protein [Mass/Vol] 5.7 g/dL Low 6.4-8.3 [facility] Comment on above: Performed By: #### X LAV, LIVP, LIP ####[facility] [address], [place] [phone] Director: Ronald Pearce MD Extra Lavender Tubeon 2022 Extra Lavender Tube Normal [facility] Comment on above: Performed By: #### L IVP, XLAV ####[facility] [address], [place] [phone] Director: Ronald Pearce MD FL CHOLANGIOGRAM ORon [...] Danny Cole MD 03/23/23 Final result Normal [facility] Liver Profileon 03-23-2023 Albumin [Mass/Vol] 3.5 g/dL Normal 3.5-5.2 [facility] Comment on above: Performed By: #### L IVP, XLAV ####[facility] [address] [facility] [place] [phone] Director: Ronald Pearce MD Alkaline Phos 293 U/L High 35-104 [facility] Comment on above: Performed By: #### L IVP, XLAV ####[facility] [address] [facility] [place] [phone] Director: Ronald Pearce MD ALT [Catalytic activity/Vol] 111 U/L High 5-33 [facility] Comment on above: Performed By: #### L IVP, XLAV ####[facility] [address] [place] [address] Lab Director: Ronald Pearce MD AST [Catalytic activity/Vol] 43 U/L High <32 [facility] Comment on above: Performed By: #### L IVP, XLAV ####[facility] [address] [place] [address] Lab Director: Ronald Pearce MD Bilirubin [Mass/Vol] 2.6 mg/dL High 0.3-1.2 [facility] Comment on above: Performed By: #### L IVP, XLAV ####[facility] [address], [place] [phone] Director: Ronald Pearce MD Bilirubin, Indirect 0.8 mg/dL Normal 0.0-1.0 [facility] Comment on above: Performed By: #### L IVP, XLAV ####[facility] [address], [place] [phone] Director: Ronald Pearce MD Bilirubin.indirect [Mass/Vol] 1.8 mg/dL High <0.3 [facility] Comment on above: Performed By: #### L IVP, XLAV ####[facility] [address], [place] [phone] Director: Ronald Pearce MD Protein [Mass/Vol] 5.7 g/dL Low 6.4-8.3 [facility] Comment on above: Performed By: #### L IVP, XLAV ####[facility] [address], [place] [phone] Director: Ronald Pearce MD Surgical Pathology Reporton 03-23-2023 Surgical Pathology Report (NOTE) Path Number: [id number] -- Diagnosis -- A. GALLBLADDER AND CONTENTS, CHOLECYSTECTOMY: Cholelithiasis. Lulú Javed M.D. Electronically Signed Out kmg2/03/27/2023 Clinical Information Pre-op Diagnosis: ACUTE PANCREATITIS, UNSPECIFIED COMPLICATED STATUS, UNSPECIFIED TYPE Operative Findings: GALLBLADDER AND CONTENTS Operation Performed: LAPAROSCOPIC CHOLECYSTECTOMY tm Source of Specimen A: GALLBLADDER AND CONTENTS Gross Description BELGICA MEREDITH, GALLBLADDER AND CONTENTS Received in formalin is [...] lesions or periductal lymph nodes are identified. Dust Sampler sections 1c. tm SM/tb1:03/24/2023 Microscopic Description Microscopic examination performed. Processing Lab: [address] [phone] Interpretation Performed at [address] [phone] SURGICAL PATHOLOGY CONSULTATION Patient Name: BELGICA HARPER [facility] Rec: [id number] [facility] ANATOMIC PATHOLOGY [address] [place] [address]. [place], [place] [address] Normal [facility] CBC with Diffon 03-22-2023 Abs. Basophil <0.03 Normal 0.00-0.20 [facility] Comment on above: Performed By: #### C DP, LIP, CMPX #### [facility] [address], [place] [phone] Coordinator Of Genetic Services: Ronald Pearce MD #### TRIG #### [address] [id number] Coordinator Of Genetic Services: Elio Marley MD Abs.Imm.Granulocyte 0.03 k/uL Normal 0.00-0.30 [facility] Comment on above: Performed By: #### C DP, LIP, CMPX #### [facility] [address], [place] [phone] Coordinator Of Genetic Services: Ronald Pearce MD #### TRIG #### [address] [id number] Coordinator Of Genetic Services: Elio Marley MD Abs.Neutrophil (Seg) 6.89 k/uL Normal 1.50-8.10 [facility] Comment on above: Performed By: #### C DP, LIP, CMPX #### [facility] [address] [place] [address] Coordinator Of Genetic Services: Ronald Pearce MD #### TRIG #### [address] [address] Coordinator Of Genetic Services: Elio Marley MD Basophils/100 WBC (Bld) 0 % Normal 0-2 [facility] Comment on above: Performed By: #### C DP, LIP, CMPX #### [facility] [address] [place] [address] Coordinator Of Genetic Services: Ronald Pearce MD #### TRIG #### [address] [address] Coordinator Of Genetic Services: Elio Marley MD Eosinophils (Bld) [#/Vol] 0.07 10*3/uL Normal 0.00-0.44 [facility] Comment on above: Performed By: #### C DP, LIP, CMPX #### [facility] [address] [place] [address] Coordinator Of Genetic Services: Ronald Pearce MD #### TRIG #### [address] [address] Coordinator Of Genetic Services: Elio Marley MD Eosinophils/100 WBC (Bld) 1 % Normal 1-4 [facility] Comment on above: Performed By: #### C DP, LIP, CMPX #### [facility] [address] [place] [address] Coordinator Of Genetic Services: Ronald Pearce MD #### TRIG #### [address] [address] Coordinator Of Genetic Services: Elio Marley MD Erythrocyte distribution width (RBC) [Ratio] 12.2 % Normal 11.8-14.4 [facility] Comment on above: Performed By: #### C DP, LIP, CMPX #### [facility] [address] [place] [address] Coordinator Of Genetic Services: Ronald Pearce MD #### TRIG #### [address] [address] Coordinator Of Genetic Services: Elio Marley MD Hematocrit (Bld) [Volume fraction] 36.9 % Normal 36.3-47.1 [facility] Comment on above: Performed By: #### C DP, LIP, CMPX #### [facility] [address] [place] [address] Coordinator Of Genetic Services: Ronald Pearce MD #### TRIG #### [address] [address] Coordinator Of Genetic Services: Elio Marley MD Hemoglobin (Bld) [Mass/Vol] 12.1 g/dL Normal 11.9-15.1 [facility] Comment on above: Performed By: #### C DP, LIP, CMPX #### [facility] [address] [place] [address] Coordinator Of Genetic Services: Ronald Pearce MD #### TRIG #### [address] [address] Coordinator Of Genetic Services: Elio Marley MD Immature granulocytes/100 WBC (Bld) 0 % Normal 0 [facility] Comment on above: Performed By: #### C DP, LIP, CMPX #### [facility] [address] [place] [address] Coordinator Of Genetic Services: Ronald Pearce MD #### TRIG #### [address] [address] Coordinator Of Genetic Services: Elio Marley MD Lymphocytes (Bld) [#/Vol] 1.62 10*3/uL Normal 1.10-3.70 [facility] Comment on above: Performed By: #### C DP, LIP, CMPX #### [facility] [address] [place] [address] Coordinator Of Genetic Services: Ronald Pearce MD #### TRIG #### [address] [address] Coordinator Of Genetic Services: Elio Marley MD Lymphocytes/100 WBC (Bld) 18 % Low 24-43 [facility] Comment on above: Performed By: #### C DP, LIP, CMPX #### [facility] [address] [place] [address] Coordinator Of Genetic Services: Ronald Pearce MD #### TRIG #### [address] [address] Coordinator Of Genetic Services: Elio Marley MD MCH (RBC) [Entitic mass] 32.5 pg Normal 25.2-33.5 [facility] Comment on above: Performed By: #### C DP, LIP, CMPX #### [facility] [address] [place] [address] Coordinator Of Genetic Services: Ronald Pearce MD #### TRIG #### [address] [address] Coordinator Of Genetic Services: Elio Marley MD MCHC (RBC) [Mass/Vol] 32.8 g/dL Normal 28.4-34.8 [facility] Comment on above: Performed By: #### C DP, LIP, CMPX #### [facility] [address] [place] [address] Coordinator Of Genetic Services: Ronald Pearce MD #### TRIG #### [address] [address] Coordinator Of Genetic Services: Elio Marley MD MCV (RBC) [Entitic vol] 99.2 fL Normal 82.6-102.9 [facility] Comment on above: Performed By: #### C DP, LIP, CMPX #### [facility] [address] [place] [address] Coordinator Of Genetic Services: Ronald Pearce MD #### TRIG #### [address] [address] Coordinator Of Genetic Services: Elio Marley MD Monocytes (Bld) [#/Vol] 0.57 10*3/uL Normal 0.10-1.20 [facility] Comment on above: Performed By: #### C DP, LIP, CMPX #### [facility] [address] [place] [address] Coordinator Of Genetic Services: Ronald Pearce MD #### TRIG #### [address] [address] Coordinator Of Genetic Services: Elio Marley MD Monocytes/100 WBC (Bld) 6 % Normal 3-12 [facility] Comment on above: Performed By: #### C DP, LIP, CMPX #### [facility] [address] [place] [address] Coordinator Of Genetic Services: Ronald Pearce MD #### TRIG #### [address] [address] Coordinator Of Genetic Services: Elio Marley MD Neutrophil (Seg) 75 % High 36-65 [facility] Comment on above: Performed By: #### C DP, LIP, CMPX #### [facility] [address] [place] [address] Coordinator Of Genetic Services: Ronald Pearce MD #### TRIG #### [address] [address] Coordinator Of Genetic Services: Elio Marley MD NRBC Automated 0.0 per 100 WBC Normal 0.0 [facility] Comment on above: Performed By: #### C DP, LIP, CMPX #### [facility] [address] [place] [address] Coordinator Of Genetic Services: Ronald Pearce MD #### TRIG #### [address] [address] Coordinator Of Genetic Services: Elio Marley MD Platelet mean volume (Bld) [Entitic vol] 10.7 fL Normal 8.1-13.5 [facility] Comment on above: Performed By: #### C DP, LIP, CMPX #### [facility] [address] [place] [address] Coordinator Of Genetic Services: Ronald Pearce MD #### TRIG #### [address] [address] Coordinator Of Genetic Services: Elio Marley MD Platelets (Bld) [#/Vol] 188 10*3/uL Normal 138-453 [facility] Comment on above: Performed By: #### C DP, LIP, CMPX #### [facility] [address] [place] [address] Coordinator Of Genetic Services: Ronald Pearce MD #### TRIG #### [address] [address] Coordinator Of Genetic Services: Elio Marley MD RBC (Bld) [#/Vol] 3.72 10*6/uL Low 3.95-5.11 [facility] Comment on above: Performed By: #### C DP, LIP, CMPX #### [facility] [address] [place] [address] Coordinator Of Genetic Services: Ronald Pearce MD #### TRIG #### [address] [address] Coordinator Of Genetic Services: Elio Marley MD WBC (Bld) [#/Vol] 9.2 10*3/uL Normal 3.5-11.3 [facility] Comment on above: Performed By: #### C DP, LIP, CMPX #### [facility] [address] [place] [address] Coordinator Of Genetic Services: Ronald Pearce MD #### TRIG #### [address] [address] Coordinator Of Genetic Services: Elio Marley MD Comp Metabolic Pr/rfx MGon 1 05-22-2022 Albumin [Mass/Vol] 3.5 g/dL Normal 3.5-5.2 [facility] Comment on above: Performed By: #### C DP, LIP, CMPX #### [facility] [address] [place] [address] Coordinator Of Genetic Services: Ronald Pearce MD #### TRIG #### [address] [address] Coordinator Of Genetic Services: Elio Marley MD Alkaline Phos 157 U/L High 35-104 [facility] Comment on above: Performed By: #### C DP, LIP, CMPX #### [facility] [address] [place] [address] Coordinator Of Genetic Services: Ronald Pearce MD #### TRIG #### [address] [address] Coordinator Of Genetic Services: Elio Marley MD ALT [Catalytic activity/Vol] 131 U/L High 5-33 [facility] Comment on above: Performed By: #### C DP, LIP, CMPX #### [facility] [address] [place] [address] Coordinator Of Genetic Services: Ronald Pearce MD #### TRIG #### [place] [address] [place] [address] Coordinator Of Genetic Services: Elio Marley MD Anion gap [Moles/Vol] 11 mmol/L Normal 9-17 [facility] Comment on above: Performed By: #### C DP, LIP, CMPX #### [facility] [address] [place] [address] Coordinator Of Genetic Services: Ronald Pearce MD #### TRIG #### [address] [address] Coordinator Of Genetic Services: Elio Marley MD AST [Catalytic activity/Vol] 34 U/L High <32 [facility] Comment on above: Performed By: #### C DP, LIP, CMPX #### [facility] [address] [place] [address] Coordinator Of Genetic Services: Ronald Pearce MD #### TRIG #### [address] [address] Coordinator Of Genetic Services: Elio Marley MD Bilirubin [Mass/Vol] 1.9 mg/dL High 0.3-1.2 [facility] Comment on above: Performed By: #### C DP, LIP, CMPX #### [facility] [address] [place] [address] Coordinator Of Genetic Services: Ronald Pearce MD #### TRIG #### [address] [address] Coordinator Of Genetic Services: Elio Marley MD BUN/CRE Ratio 17 Normal 9-20 [facility] Comment on above: Performed By: #### C DP, LIP, CMPX #### [facility] [address] [place] [address] Coordinator Of Genetic Services: Ronald Pearce MD #### TRIG #### [address] [address] Coordinator Of Genetic Services: Elio Marley MD Calcium [Mass/Vol] 8.1 mg/dL Low 8.6-10.4 [facility] Comment on above: Performed By: #### C DP, LIP, CMPX #### [facility] [address] [place] [address] Coordinator Of Genetic Services: Ronald Pearce MD #### TRIG #### [address] [address] Coordinator Of Genetic Services: Elio Marley MD Chloride [Moles/Vol] 105 mmol/L Normal 98-107 [facility] Comment on above: Performed By: #### C DP, LIP, CMPX #### [facility] [address] [place] [address] Coordinator Of Genetic Services: Ronald Pearce MD #### TRIG #### [address] [address] Coordinator Of Genetic Services: Elio Marley MD CO2 [Moles/Vol] 21 mmol/L Normal 20-31 [facility] Comment on above: Performed By: #### C DP, LIP, CMPX #### [facility] [address] [place] [address] Coordinator Of Genetic Services: Ronald Pearce MD #### TRIG #### [address] [address] Coordinator Of Genetic Services: Elio Marley MD Creatinine [Mass/Vol] 0.6 mg/dL Normal 0.5-0.9 [facility] Comment on above: Performed By: #### C DP, LIP, CMPX #### [facility] [address] [place] [address] Coordinator Of Genetic Services: Ronald Pearce MD #### TRIG #### [address] [address] Coordinator Of Genetic Services: Elio Marley MD GFR/1.73 sq M.predicted among non-blacks MDRD (S/P/Bld) [Vol rate/Area] mL/min/{1.73_m2} Normal >60 [facility] Comment on above: Result Comment: These [...] By: #### C DP, LIP, CMPX #### [facility] [address] [place] [address] Coordinator Of Genetic Services: Ronald Pearce MD #### TRIG #### [address] [address] Coordinator Of Genetic Services: Elio Marley MD Glucose [Mass/Vol] 75 mg/dL Normal 70-99 [facility] Comment on above: Performed By: #### C DP, LIP, CMPX #### [facility] [address] [place] [address] Coordinator Of Genetic Services: Ronald Pearce MD #### TRIG #### [address] [address] Coordinator Of Genetic Services: Elio Marley MD Potassium [Moles/Vol] 4.0 mmol/L Normal 3.7-5.3 [facility] Comment on above: Performed By: #### C DP, LIP, CMPX #### [facility] [address] [place] [address] Coordinator Of Genetic Services: Ronald Pearce MD #### TRIG #### [address] [address] Coordinator Of Genetic Services: Elio Marley MD Protein [Mass/Vol] 5.7 g/dL Low 6.4-8.3 [facility] Comment on above: Performed By: #### C DP, LIP, CMPX #### [facility] [address] [place] [address] Coordinator Of Genetic Services: Ronald Pearce MD #### TRIG #### [address] [address] Coordinator Of Genetic Services: Elio Marley MD Sodium [Moles/Vol] 137 mmol/L Normal 135-144 [facility] Comment on above: Performed By: #### C DP, LIP, CMPX #### [facility] [address] [place] [address] Coordinator Of Genetic Services: Ronald Pearce MD #### TRIG #### [address] [address] Coordinator Of Genetic Services: Elio Marley MD Urea nitrogen [Mass/Vol] 10 mg/dL Normal 6-20 [facility] Comment on above: Performed By: #### C DP, LIP, CMPX #### [facility] [address] [place] [address] Coordinator Of Genetic Services: Ronald Pearce MD #### TRIG #### [address] [address] Coordinator Of Genetic Services: Elio Marley MD K (Potassium)on 03-22-2023 Potassium [Moles/Vol] 3.8 mmol/L Normal 3.7-5.3 [facility] Comment on above: Performed By: #### K #### [facility] [address] [place] [address] Coordinator Of Genetic Services: Ronald Pearce MD Lipaseon 03-22-2023 Lipase [Catalytic activity/Vol] 198 U/L High 13-60 [facility] Comment on above: Performed By: #### C DP, LIP, CMPX #### [facility] [address] [place] [address] Coordinator Of Genetic Services: Ronald Pearce MD #### TRIG #### [place] [address] [place] [address] Coordinator Of Genetic Services: Elio Marley MD MRI ABDOMEN WO CONTRAST [...] Daniel Hooker MD 03/22/23 Final result Normal [facility] Triglycerideson 03-22-2023 Triglyceride [Mass/Vol] 102 mg/dL Normal 0-149 [facility] Comment on above: Result Comment: Triglyceride Guidelines: <150 Desirable 150-199 Borderline 200-499 High >499 Very high Based on AHA Guidelines for fasting triglyceride, January 2012. Performed By: #### C DP, LIP, CMPX #### [facility] [address] [place], [place] [address] Coordinator Of Genetic Services: Ronald Pearce MD #### TRIG #### [facility] [address] [place], [place] [address] Coordinator Of Genetic Services: Elio Marley MD [facility] 03-20-2023 [facility] Telephone (FVPRAD) BELGICA HARPER ([id number]) 1990 F Date Time Provider Department 03/20/23 [...] Encounter Status:Closed by LAWRENCE CAMPUZANO on 03/20/23 [facility] DENY Antinuclear Antibodieson 10-26-2022 Antinuclear Abs, IFA Negative Normal . [facility] Comment on above: Order Comment: Reaso n for Exam Elevated liver enzymes Result Comment: Nega tive <1:80 Borderline 1:80 Positive >1:80 ICAP nomenclature: AC-0 For more information about Hep-2 cell patterns use ANApatterns.org, the official website for the International Consensus on Antinuclear Antibody (DENY) Patterns (ICAP). Performed at: [facility] [id number] Coordinator Of Genetic Services: Demarcus Moreno PhD, Phone: [phone] Performed By: #### A NA, HEMOCHROM, IGG, MITOM2, ALPHA PHEN, HAABT, SMAB, CERULOP, L-K MICRO #### [facility] , #### CONSTANTINO #### [facility] [address] Ejepf-6-Yksrdiljgap Phenotyp kwasi 10-26-2022 Alpha 1 Anti-Trypsin 121 mg/dL Normal 100-188 [facility] Comment on above: Order Comment: Reaso n for Exam Elevated liver enzymes Performed By: #### A NA, HEMOCHROM, IGG, MITOM2, ALPHA PHEN, HAABT, SMAB, CERULOP, L-K MICRO #### [facility] , #### CONSTANTINO #### [facility] [address] Phenotype (P1) MM Normal . [facility] Comment on above: Order Comment: [...] Ranges used to confirm phenotype. Performed at: [address] [id number] Coordinator Of Genetic Services: Demarcus Moreno PhD, Phone: [phone] Performed at: [address] [id number] Coordinator Of Genetic Services: Yuli Callejas MD, Phone: [phone] Performed By: #### A NA, HEMOCHROM, IGG, MITOM2, ALPHA PHEN, HAABT, SMAB, CERULOP, L-K MICRO #### [facility] , #### CONSTANTINO #### [address] Ceruloplasminon 10-26-2022 Ceruloplasmin 27.2 mg/dL Normal 19.0-39.0 [facility] Comment on above: Order Comment: Reaso n for Exam Elevated liver enzymes Result Comment: Perf ormed at: [address] [id number] Coordinator Of Genetic Services: Demarcus Moreno PhD, Phone: [phone] PERFORMED BY: [place] [address] PATHOLOGIST SHANK SKINNER ILIANA CAMP M.D. Performed By: #### A NA, HEMOCHROM, IGG, MITOM2, ALPHA PHEN, HAABT, SMAB, CERULOP, L-K MICRO #### [facility] , #### CONSTANTINO #### [address] Ferritinon 10-26-2022 Ferritin [Mass/Vol] 106.5 ng/mL Normal 11.0-306.8 [facility] Comment on above: Order Comment: pt is fasting Reason for Exam Elevated liver enzymes Result Comment: PERF ORMED BY: [place] [address] PATHOLOGIST SHANK SKINNER ILINAA CAMP M.D. Performed By: #### A NA, HEMOCHROM, IGG, MITOM2, ALPHA PHEN, HAABT, SMAB, CERULOP, L-K MICRO #### [facility] , #### CONSTANTINO #### [facility] [address] Ferritin [Mass/volume] in Se rum or PlasmaOrdered By: Erwin Hylton on 10-26-2022 Ferritin [Mass/Vol] 106.5 ng/mL 11.0-306.8 [facility] Hepatitis A Antibody Totalon 10-26-2022 Hepatitis A Antibody Total Negative Normal Negative [facility] Comment on above: Order Comment: Reaso n for Exam Elevated liver enzymes Result Comment: Perf ormed at: - [facility] [address] [id number] Coordinator Of Genetic Services: Demarcus Moreno PhD, Phone: [phone] PERFORMED BY: [place] [address] PATHOLOGIST SHANK SKINNER ILIANA CAMP M.D. Performed By: #### A NA, HEMOCHROM, IGG, MITOM2, ALPHA PHEN, HAABT, SMAB, CERULOP, L-K MICRO #### [facility] , #### CONSTANTINO #### [facility] [address] [place] [address] Hereditary Hemochromatosis,D NAon 10-26-2022 Hereditary Hemochromatosis Normal . [facility] Comment on above: Order Comment: Reaso n for Exam Elevated liver enzymes Result Comment: Resu lt: c.845G>A (p.Gaj205Tkc) - Not Detected c.187C>G (p.Wio03Atl) - Not Detected c.193A>T (p.Obg85Udc) - Not Detected Not associated with increased [...] for patients who are homozygous for c.845G>A (p.Ygi132Kla) and have yet to experience clinical symptoms. Comments: The most common HFE variants associated with hereditary hemochromatosis are c.845G>A (p.Gfi185Ewi), c.187C>G (p.Auw29Urp), c.193A>T (p.Yuw07Wjf). While patients homozygous for c.845G>A (p.Cgj448Nmi) are the most likely to present clinical symptoms, less than 10% develop clinically significant iron overload with tissue and organ damage. Genetic counseling is recommended to discuss the potential clinical implications of positive results, as well as recommendations for testing family members. Genetic Coordinators are available for health care providers to discuss results at [phone] ([phone]). Test Details: Three variants analyzed: c.845G>A (p.Wmd603Maa), commonly referred to as C282Y c.187C>G (p.Nbv71Ihs), commonly referred to as H63D c.193A>T (p.Vgq09Cyx), commonly referred to as S65C Methods/Limitations: DNA [...] developed and its performance characteristics determined by [employer]. It has not been cleared or approved by the Food and Drug Administration. References: Brodie BR, Yoav PC, Deborah KV, Raymond LW, Ramsey ; [employer] Association for the Study of Liver Diseases. Diagnosis and management of hemochromatosis: 2011 practice guideline by the [employer] for the [employer] of Liver Diseases. Hepatology. 2011 Oct;54(1):328-43. doi: 10.1002/hep.56233. PMID: 02270663; PMCID: [id number]. Cora G, Olegario P, Fabio DW, Tabatha H, Love O, Zev S, Vazquez I, Kofi M, Sunitha S. [facility] best practice guidelines for the molecular genetic diagnosis of hereditary hemochromatosis (HH). Eur J Hum Margaret. 2016 Jul;24(4):479-95. doi: 10.1038/ejhg.2015.128. Epub 2014Oct 29. PMID: 62307704; PMCID: [id number]. Performed By: #### A NA, HEMOCHROM, IGG, MITOM2, ALPHA PHEN, HAABT, SMAB, CERULOP, L-K MICRO #### [facility] , #### CONSTANTINO #### [address] Reviewed by: Dm Reyna, PhD Normal . [facility] Comment on above: Order Comment: Reaso n for Exam Elevated liver enzymes Result Comment: Perf ormed at: TG - [facility] [address] [place], [place] [id number] Coordinator Of Genetic Services: Vivian Kelley [facility], Phone: [phone] PERFORMED BY: [place] [address] PATHOLOGIST SHANK SKINNER ILIANA CAMP M.D. Performed By: #### A NA, HEMOCHROM, IGG, MITOM2, ALPHA PHEN, HAABT, SMAB, CERULOP, L-K MICRO #### [facility] , #### CONSTANTINO #### [address] Immunoglobulin Harvey 3 Immunoglobulin G 865 mg/dL Normal 586-1602 [facility] Comment on above: Order Comment: Reaso n for Exam Elevated liver enzymes Result Comment: Perf ormed at: CB - [facility] [address] [id number] Coordinator Of Genetic Services: Demarcus Moreno PhD, Phone: [phone] Performed By: #### A NA, HEMOCHROM, IGG, MITOM2, ALPHA PHEN, HAABT, SMAB, CERULOP, L-K MICRO #### [facility] , #### CONSTANTINO #### [facility] [address] [place] [address] Liver-Kidney Microsomal Abon 10-26-2022 Liver-Kidney Microsomal Ab <1.0 Normal 0.0-20.0 [facility] Comment on above: Order Comment: [...] MICRO #### [facility] , #### CONSTANTINO #### [facility] [address] [place] [address] Mitochondrial (M2) Antibodyo n 10-26-2022 Mitochondrial (M2) Antibody <20.0 Normal 0.0-20.0 [facility] Comment on above: Order Comment: Reaso n for Exam Elevated liver enzymes Result Comment: Nega tive 0.0 - 20.0 Equivocal 20.1 - 24.9 Positive >24.9 Mitochondrial (M2) Antibodies are found in 90-96% of patients with primary biliary cirrhosis. Performed at: [address] [id number] Coordinator Of Genetic Services: Demarcus Moreno PhD, Phone: [phone] Performed By: #### A NA, HEMOCHROM, IGG, MITOM2, ALPHA PHEN, HAABT, SMAB, CERULOP, L-K MICRO #### [facility] , #### CONSTANTINO #### [place] [address] [place] Smooth Muscle Antibodyon Smooth Muscle Antibody 4 Normal 0-19 [facility] Comment on above: Order Comment: [...] MICRO #### [facility] , #### CONSTANTINO #### [facility] [address] liveron 10-26-2022 liver [facility] [address] [place] [address] [place] [address] Ultrasound Report Signed Patient: Belgica Harper MR#: [id number] : 1990 Acct:[id number] Age/Sex: 32 / F ADM Date: 10/26/22 Loc: Room: Type: [facility] Attending Dr: Erwin Hylton MD Ordering [...] PROCESS.. Impression dictated by: Alexandro Perdomo Jr., D.ORajesh10/26/2022 3:24 PM Dictation Location: [place] [address] Tech: Francia Auley Transcribed By: GRANT 10/26/22 1524 Dictated By: Alexandro Perdomo Jr, DO 10/26/22 152 Signed By: 10/26/22 1524 Normal [facility] ACETYLCHOLINE REC BINDING AB on 10-17-2022 ACETYLCHOLINE BINDING, QUAL Negative Normal Negative [facility] Comment on above: Order Comment: Speci men Type: BLOOD SPECIMEN Ordering Facility: [facility] Address: [place] [address] Result Comment: Anti -acetylcholine receptor binding antibody test is used as an aid in diagnosis of myasthenia gravis. A negative result cannot exclude myasthenia gravis. Clinical correlation is required. Performed By: #### 3 -3, 2156-09 #### [facility] CLIA [id number] [place] [address] [place] Acetylcholine receptor binding Ab (S) [Moles/Vol] <0.02 Normal <0.21 [facility] Comment on above: Order Comment: Speci men Type: BLOOD SPECIMEN Ordering Facility: [facility] Address: [address] [place] [address] Performed By: #### 3 3, 2156-09 #### [facility] [place] [id number] [address] [place] [address] [place] AMINO ACIDS, PLASMA W/ CONSU LTATIONon 10-17-2022 Alanine [Moles/Vol] 310 umol/L Normal 177-583 [facility] Comment on above: Order Comment: Speci men Type: BLOOD SPECIMEN Ordering Facility: [facility] Address: [address] [place] [address] Performed By: #### 3 3, 2156-09 #### [facility] IA [id number] [address] [place] [address] [place] Alloisoleucine [Moles/Vol] 2 umol/L Normal 0-2 [facility] Comment on above: Order Comment: Speci men Type: BLOOD SPECIMEN Ordering Facility: [facility] Address: [address] [place] [address] Performed By: #### 3 016-3, 2156-09 #### [facility] CLIA [id number] [address] [place] [address] [place] Alpha aminoadipate [Moles/Vol] <1 Normal 0-6 [facility] Comment on above: Order Comment: Speci men Type: BLOOD SPECIMEN Ordering Facility: [facility] Address: [address] Performed By: #### 3 016-, 2156-09 #### [facility] CLIA [id number] [address] [place] [address] [place] AMINO ACID CONSULTATION, PLASMA Normal [facility] Comment on above: Order Comment: Speci men Type: BLOOD SPECIMEN Ordering Facility: [facility] Address: [address] [place] [address] Result Comment: This plasma amino acid analysis shows no significant abnormalities. Reference intervals from Isacc E, Len MG, Kate FANTASMA, and Christopher DK: Biochemical Genetics: A Laboratory Manual, Copyright 1989 by [employer] Reference intervals not established for some amino acids. This test was developed and its performance characteristics determined by [facility]'s [facility] Pathology and Laboratory Medicine [place] ([facility]). It has not been cleared or approved by the FDA. [facility] is regulated under CLIA as qualified to perform high complexity testing. This test is used for clinical purposes. It should not be regarded as investigational or for research. Performed By: #### 3 016, 2156-09 #### [facility] CLIA [id number] [address] [place] [address] [place] AMINO ACIDS REVIEW, PLASMA Reviewed by Patrick Proctor MD, Ph.D ([id number]) Normal [facility] Comment on above: Order Comment: Speci men Type: BLOOD SPECIMEN Ordering Facility: [facility] Address: [address] Performed By: #### 3 0163, 2156-09 #### [facility] CLIA [id number] [address] [facility] [place] [address] [place] Arginine [Moles/Vol] 77 umol/L Normal 15-128 [facility] Comment on above: Order Comment: Speci men Type: BLOOD SPECIMEN Ordering Facility: [facility] Address: [address] Performed By: #### 3 016-3, 2156-09 #### [facility] CLIA [id number] [address] [place] [address] [place] Asparagine [Moles/Vol] 44 umol/L Normal 35-74 [facility] Comment on above: Order Comment: Speci men Type: BLOOD SPECIMEN Ordering Facility: [facility] Address: [address] [place] [address] Performed By: #### 3 016-3, 2156-09 #### [facility] CLIA [id number] [address] [place] [address] [place] Aspartate [Moles/Vol] 2 umol/L Normal 1-25 [facility] Comment on above: Order Comment: Speci men Type: BLOOD SPECIMEN Ordering Facility: [facility] Address: [address] [place] [address] Performed By: #### 3 016-3, 2156-09 #### [facility] IA [id number] [address] [place] [address] [place] Citrulline [Moles/Vol] 25 umol/L Normal 12-55 [facility] Comment on above: Order Comment: Speci men Type: BLOOD SPECIMEN Ordering Facility: [facility] Address: [address] [place] [address] Performed By: #### 3 016-3, 2156-09 #### [facility] CLIA [id number] [address] [place] [address] [place] Cystine [Moles/Vol] 33 umol/L Normal 5-82 [facility] Comment on above: Order Comment: Speci men Type: BLOOD SPECIMEN Ordering Facility: [facility] Address: [address] [place] [address] Performed By: #### 3 016-3, 2156-09 #### [facility] CLIA [id number] [address] [place] [address] [place] Glutamate [Moles/Vol] 31 umol/L Normal 10-131 [facility] Comment on above: Order Comment: Speci men Type: BLOOD SPECIMEN Ordering Facility: [facility] Address: [address] [place] [address] Performed By: #### 3 016-3, 1987-08, 2156-09 #### [facility] CLIA [id number] [address] [place] [address] [place] Glutamine [Moles/Vol] 652 umol/L Normal 205-756 [facility] Comment on above: Order Comment: Speci men Type: BLOOD SPECIMEN Ordering Facility: [facility] Address: [address] [place] [address] Performed By: #### 3 016-3, 1987-08, 2156-09 #### [facility] CLIA [id number] [address] [place] [address] [place] Glycine [Moles/Vol] 351 umol/L Normal 151-490 [facility] Comment on above: Order Comment: Speci men Type: BLOOD SPECIMEN Ordering Facility: [facility] Address: [address] [place] [address] Performed By: #### 3 016-3, 1987-08, 2156-09 #### [facility] CLIA [id number] [address] [place] [address] [place] Histidine [Moles/Vol] 82 umol/L Normal 72-124 [facility] Comment on above: Order Comment: Speci men Type: BLOOD SPECIMEN Ordering Facility: [facility] Address: [address] [place] [address] Performed By: #### 3 016-3, 1987-08, 2156-09 #### [facility] CLIA [id number] [address] [place] [address] [place] Hydroxylysine [Moles/Vol] <1 High <=0 [facility] Comment on above: Order Comment: Speci men Type: BLOOD SPECIMEN Ordering Facility: [facility] Address: [address] [place] [address] Performed By: #### 3 016-3, 2156-09 #### [facility] CLIA [id number] [address] [place] [address] [place] Hydroxyproline [Moles/Vol] 9 umol/L Normal 0-53 [facility] Comment on above: Order Comment: Speci men Type: BLOOD SPECIMEN Ordering Facility: [facility] Address: [address] [place] [address] Performed By: #### 3 016-3, 2156-09 #### [facility] IA [id number] [address] [place] [address] [place] Isoleucine [Moles/Vol] 66 umol/L Normal 30-108 [facility] Comment on above: Order Comment: Speci men Type: BLOOD SPECIMEN Ordering Facility: [facility] Address: [address] [place] [address] Performed By: #### 3 016, 2156-09 #### [facility] IA [id number] [address] [place] [address] [place] Leucine [Moles/Vol] 109 umol/L Normal 72-201 [facility] Comment on above: Order Comment: Speci men Type: BLOOD SPECIMEN Ordering Facility: [facility] Address: [address] [place] [address] Performed By: #### 3 0163, 1987-08, 2156-09 #### [facility] IA [id number] [address] [place] [address] [place] Lysine [Moles/Vol] 220 umol/L Normal 116-296 [facility] Comment on above: Order Comment: Speci men Type: BLOOD SPECIMEN Ordering Facility: [facility] Address: [address] [place] [address] Performed By: #### 3 016-3, 2156-09 #### [facility] IA [id number] [address] [place] [address] [place] Methionine [Moles/Vol] 20 umol/L Normal 10-42 [facility] Comment on above: Order Comment: Speci men Type: BLOOD SPECIMEN Ordering Facility: [facility] Address: [address] [address] Performed By: #### 3 016-3, 1987-08, 2156-09 #### [facility] CLIA [id number] [address] [place] [address] [place] Ornithine [Moles/Vol] 64 umol/L Normal 48-195 [facility] Comment on above: Order Comment: Speci men Type: BLOOD SPECIMEN Ordering Facility: [facility] Address: [address] [place] [address] Performed By: #### 3 016-3, 1987-08, 2156-09 #### [facility] CLIA [id number] [address] [place] [address] [place] Phenylalanine [Moles/Vol] 42 umol/L Normal 35-85 [facility] Comment on above: Order Comment: Speci men Type: BLOOD SPECIMEN Ordering Facility: [facility] Address: [address] [place] [address] Performed By: #### 3 016-3, 1987-08, 2156-09 #### [facility] CLIA [id number] [address] [place] [address] [place] Proline [Moles/Vol] 187 umol/L Normal 97-329 [facility] Comment on above: Order Comment: Speci men Type: BLOOD SPECIMEN Ordering Facility: [facility] Address: [address] [address] Performed By: #### 3 016-3, 1987-08, 2156-09 #### [facility] CLIA [id number] [address] [place] [address] [place] Sarcosine [Moles/Vol] <1 High <=0 [facility] Comment on above: Order Comment: Speci men Type: BLOOD SPECIMEN Ordering Facility: [facility] Address: [address] [address] Performed By: #### 3 016-3, 1987-08, 2156-09 #### [facility] CLIA [id number] [address] [facility] [place] [address] [place] Serine [Moles/Vol] 107 umol/L Normal 58-181 [facility] Comment on above: Order Comment: Speci men Type: BLOOD SPECIMEN Ordering Facility: [facility] Address: [address] [place] [address] Performed By: #### 3 016-3, 1987-08, 2156-09 #### [facility] IA [id number] [address] [facility] [place] [address] [place] Taurine [Moles/Vol] 46 umol/L Low 54-210 [facility] Comment on above: Order Comment: Speci men Type: BLOOD SPECIMEN Ordering Facility: [facility] Address: [address] [place] [address] Performed By: #### 3 3, 2156-09 #### [facility] IA [id number] [address] [place] [address] [place] Threonine [Moles/Vol] 147 umol/L Normal 60-225 [facility] Comment on above: Order Comment: Speci men Type: BLOOD SPECIMEN Ordering Facility: [facility] Address: [address] [place] [address] Performed By: #### 3 3, 1987-08, 2156-09 #### [facility] IA [id number] [address] [facility] [place] [address] [place] Tyrosine [Moles/Vol] 51 umol/L Normal 34-112 [facility] Comment on above: Order Comment: Speci men Type: BLOOD SPECIMEN Ordering Facility: [facility] Address: [address] [place] [address] Performed By: #### 3 016-3, 1987-08, 2156-09 #### [facility] IA [id number] [address] [facility] [place] [address] [place] Valine [Moles/Vol] 199 umol/L Normal 119-336 [facility] Comment on above: Order Comment: Rl [facility] Type: BLOOD SPECIMEN Ordering Facility: [facility] Address: [address] [address] Performed By: #### 3 016-3, 1987-, 2156-09 #### [facility] CLIA [id number] [address] [facility] [place] [address] [place] CARNITINE FREE/TOTAL, PLASMA on 10-17-2022 C0 [Moles/Vol] 27 umol/L Normal 22-54 [facility] Comment on above: Order Comment: [facility] Type: BLOOD SPECIMEN Ordering Facility: [facility] Address: [address] [address] Performed By: #### C KADY #### [facility] CLIA [id number] [address] OF [facility] C0/Total carnitine [Molar fraction] 0.675 Low 0.700-0.900 [facility] Comment on above: Order Comment: Rl basilio Type: BLOOD SPECIMEN Ordering Facility: [facility] Address: [address] [address] Result Comment: NOTE : The determination of [...] determined by the Pathology and Laboratory Medicine [place] at the [facility]. The U.S. Food and Drug Administration has not approved or cleared this test, however, FDA clearance or approval is not currently required for clinical use. Performed By: #### C ARNPL #### [facility] CLIA [id number] 9500 [place] [address] [place] Carnitine [Moles/Vol] 40 umol/L Normal 27-68 [facility] Comment on above: Order Comment: Speci men Type: BLOOD SPECIMEN Ordering Facility: [facility] Address: [address] [place] [address] Performed By: #### C ARNPL #### [facility] CLIA [id number] [address] [place] [address] [place] CK SerPl-cCncon 10-17-2022 CK [Catalytic activity/Vol] 50 U/L Normal 42-196 [facility] Comment on above: Order Comment: Speci men Type: BLOOD SPECIMEN Ordering Facility: [facility] Address: [address] [place] [address] Performed By: #### 3 016-3, 2156-09 #### [facility] CLIA [id number] [address] [place] [address] [place] CRP SerPl-mCncon 10-17-2022 CRP [Mass/Vol] 0.6 mg/dL Normal <0.9 [facility] Comment on above: Order Comment: Speci men Type: BLOOD SPECIMEN Ordering Facility: [facility] Address: [address] [place], [place] [address] Performed By: #### 3 016-3, 2156-09 #### [facility] CLIA [id number] [address] [place] [address] [place] CYTOKINE PANEL 13, SERUMon 0 10-17-2022 INTERFERON GAMMA <4.2 Normal <=4.2 [facility] Comment on above: Order Comment: Speci men Type: BLOOD SPECIMEN Ordering Facility: [facility] Address: [address] [place], [place] [address] Performed By: #### 3 016-3, 1987-08, 2156-09 #### [facility] CLIA [id number] [address] [place] [address] [place] INTERLEUKIN 1 BETA <6.5 Normal <=6.7 [facility] Comment on above: Order Comment: Speci men Type: BLOOD SPECIMEN Ordering Facility: [facility] Address: [address] [place] [address] Performed By: #### 3 016-3, 1987-08, 2156-09 #### [facility] CLIA [id number] [address] [place] [address] [place] INTERLEUKIN 10 3.2 pg/mL High <=2.8 [facility] Comment on above: Order Comment: Speci men Type: BLOOD SPECIMEN Ordering Facility: [facility] Address: [address] [place] [address] Performed By: #### 3 016-3, 1987-08, 2156-09 #### [facility] CLIA [id number] [address] [place], [place] [address] [place] [address] [place] INTERLEUKIN 12 <1.9 Normal <=1.9 [facility] Comment on above: Order Comment: Speci men Type: BLOOD SPECIMEN Ordering Facility: [facility] Address: [address] [place] [address] Performed By: #### 3 0163, 1987-08, 2156-09 #### [facility] CLIA [id number] [address] [place] [address] [place] INTERLEUKIN 13 <1.7 Normal <=2.3 [facility] Comment on above: Order Comment: Speci men Type: BLOOD SPECIMEN Ordering Facility: [facility] Address: [address] [address] Performed By: #### 3 016-3, 1987-08, 2156-09 #### [facility] CLIA [id number] [address] [place], [place] [address] [place] [address] [place] INTERLEUKIN 17 <1.4 Normal <=1.4 [facility] Comment on above: Order Comment: Speci men Type: BLOOD SPECIMEN Ordering Facility: [facility] Address: [address] [place] [address] Performed By: #### 3 016-3, 1987-08, 2156-09 #### [facility] CLIA [id number] [address] [place] [address] [place] INTERLEUKIN 2 <2.1 Normal <=2.1 [facility] Comment on above: Order Comment: Speci men Type: BLOOD SPECIMEN Ordering Facility: [facility] Address: [address] [place] [address] Performed By: #### 3 016-3, 2156-09 #### [facility] CLIA [id number] [address] [place] [address] [place] INTERLEUKIN 4 (INT4) <2.2 Normal <=2.2 [facility] Comment on above: Order Comment: Speci men Type: BLOOD SPECIMEN Ordering Facility: [facility] Address: [address] [place] [address] Performed By: #### 3 0163, 2156-09 #### [facility] CLIA [id number] [address] [place] [address] [place] INTERLEUKIN 5 <2.1 Normal <=2.1 [facility] Comment on above: Order Comment: Speci men Type: BLOOD SPECIMEN Ordering Facility: [facility] Address: [address] [place] [address] Performed By: #### 3 0163, 2156-09 #### [facility] CLIA [id number] [address] [place] [address] [place] INTERLEUKIN 6 <2.0 Normal <=2.0 [facility] Comment on above: Order Comment: Speci men Type: BLOOD SPECIMEN Ordering Facility: [facility] Address: [address] [place] [address] Performed By: #### 3 016-3, 1987-08, 2156-09 #### [facility] CLIA [id number] [address] [place] [address] [place] INTERLEUKIN 8 <3.0 Normal <=3.0 [facility] Comment on above: Order Comment: Speci men Type: BLOOD SPECIMEN Ordering Facility: [facility] Address: [address] [address] Performed By: #### 3 016-, 2156-09 #### [facility] CLIA [id number] [address] [place] [address] [place] INTERLEUKIN-2 RECEPTOR 355.4 pg/mL Normal 175.3-858.2 [facility] Comment on above: Order Comment: Speci men Type: BLOOD SPECIMEN Ordering Facility: [facility] Address: [address] [address] Performed By: #### 3 016, 2156-09 #### [facility] CLIA [id number] [address] [place] TUMOR NECROSIS FACTOR - ALPHA 1.9 pg/mL Normal <=7.2 [facility] Comment on above: Order Comment: Speci men Type: BLOOD SPECIMEN Ordering Facility: [facility] Address: [address] [place] [address] Result Comment: INTE RPRETIVE INFORMATION: Cytokines Results are used to understand the pathophysiology of immune, infectious, or inflammatory disorders, or may be used for research purposes. This test was developed and its performance characteristics determined by [employer]. It has not been cleared or approved by the [place] Food and Drug Administration. This test was performed in a CLIA certified laboratory and is intended for clinical purposes. Performed By: [employer] [address] [place] [address] Grades 1 Through 5 Teacher: Terry Jacome MD, PhD Performed By: #### 3 016, 2156-09 #### [facility] IA [id number] [address] [place] [address] [place] ESR Westergren method (Bld) [Velocity]on 10-17-2022 ESR (Bld) [Velocity] 5 mm/h Normal 0-20 [facility] Comment on above: Order Comment: Speci men Type: BLOOD SPECIMEN Ordering Facility: [facility] Address: [address] [place] [address] Performed By: #### 4 537-7 #### [facility] CLIA [id number] 9500 [facility] [id number] [place] ESTROGEN FRACTION BLon 10-17 ESTRADIOL 238.7 pg/mL Normal [facility] Comment on above: Order Comment: Speci men Type: BLOOD SPECIMEN Ordering Facility: [facility] Address: [address] [address] Result Comment: REFE RENCE INTERVAL: Estradiol by Electric Scoop Operator For a complete set of all established reference intervals, refer to [employer]/Tests/Pub/[id number]. This test was developed and its performance characteristics determined by [employer]. It has not been cleared or approved by the [place] Food and Drug Administration. This test was performed in a CLIA certified laboratory and is intended for clinical purposes. Performed By: #### 3 016-, 1987-08, 2156-09 #### [facility] CLIA [id number] [address] [facility]. [address] [place] ESTROGENS TOTAL 354.8 pg/mL Normal [facility] Comment on above: Order Comment: Speci men Type: BLOOD SPECIMEN Ordering Facility: [facility] Address: [address] [place] [address] Result Comment: Refe rence interval of estrogens (pg/mL) Estrone Estradiol Total Estrogens Early follicular <150.0 30.0-100.0 30.0-250.0 Late follicular 100.0-250.0 100.0-400.0 200.0-650.0 Luteal <200.0 50.0-150.0 50.0-350.0 Post-menopausal 3.0-32.0 2.0-21.0 5.0-52.0 REFERENCE INTERVAL: Estrogens Total Calculation For a complete set of all established reference intervals, refer to [employer]/Tests/Pub/[id number]. Performed By: [employer] [address] [place] [address] Grades 1 Through 5 Teacher: Terry Jacome MD, PhD Performed By: #### 3 016-3, 2156-09 #### [facility] CLIA [id number] [address] STATES OF [facility] ESTRONE 116.1 pg/mL Normal [facility] Comment on above: Order Comment: Rl basilio Type: BLOOD SPECIMEN Ordering Facility: [facility] Address: [address] [address] Result Comment: INTERPRETIVE INFORMATION: Estrone by Electric Sc[employer] Operator For a complete set of all established reference intervals, refer to [employer]/Tests/Pub/[id number]. This test was developed and its performance characteristics determined by [employer]. It has not been cleared or approved by the [place] Food and Drug Administration. This test was performed in a CLIA certified laboratory and is intended for clinical purposes. Performed By: #### 3 016-3, 2156-09 #### [facility] CLIA [id number] [address] [place] [address] [place] GAD65 Ab Ser-aCncon 10-18-19 Glutamate decarboxylase 65 Ab Qn (S) <5.0 Normal <=5.0 [facility] Comment on above: Order Comment: Rl basilio Type: BLOOD SPECIMEN Ordering Facility: [facility] Address: [address] [place] [address] Result Comment: Anti -glutamic acid decarboxylase antibody [...] Performed By: #### 3 016-3, 2156-09 #### [facility] CLIA [id number] [address] [place] Glutamate decarboxylase 65 A b Qn (S)on 10-17-2022 GLUTAMIC ACID DECARBOXYLAS AB QUALITATIVE Negative Normal Negative [facility] Comment on above: Order Comment: Rl [facility] Type: BLOOD SPECIMEN Ordering Facility: [facility] Address: [address] [place] [address] Performed By: #### 3 , 2156-09 #### [facility] CLIA [id number] [address] [facility] [place] [address] [place] HbA1c (Bld)on 10-17-2022 Average glucose Estimated from glycated hemoglobin (Bld) [Mass/Vol] 88 mg/dL Normal [facility] Comment on above: Order Comment: Rl [facility] Type: BLOOD SPECIMEN Ordering Facility: [facility] Address: [address] [place] [address] Result Comment: eAG: (Estimated average glucose) is a calculated value from HgbA1c and is automobile rental representative of the average blood glucose level in the last 2-3 month period. Performed By: #### 3 -, 2156-09 #### [facility] CLIA [id number] [address] [place] HbA1c (Bld) [Mass fraction] 4.7 % Normal 4.3-5.6 [facility] Comment on above: Order Comment: Rl [facility] Type: BLOOD SPECIMEN Ordering Facility: [facility] Address: [address] [place] [address] Result Comment: Amer [place] Diabetes Association guidelines indicate that patients with HgbA1c in the range 5.7-6.4% are at increased risk for development of diabetes, and intervention by lifestyle modification may be beneficial. HgbA1c greater or equal to 6.5% is considered diagnostic of diabetes. Performed By: #### 3 -3, 2156-09 #### [facility] CLIA [id number] [address] [place] [address] [place] IgA SerPl-mCncon 10-17-2022 IgA [Mass/Vol] 169 mg/dL Normal 70-400 [facility] Comment on above: Order Comment: [facility] Type: BLOOD SPECIMEN Ordering Facility: [facility] Address: [address] [place] [address] Performed By: #### 3 -3, 2156-09 #### [facility] CLIA [id number] [address] [place] [address] [place] IgG SerPl-mCncon 10-17-2022 IgG [Mass/Vol] 932 mg/dL Normal 700-1600 [facility] Comment on above: Order Comment: Speci men Type: BLOOD SPECIMEN Ordering Facility: [facility] Address: [address] [place] [address] Performed By: #### 3 016-3, 1987-08, 2156-09 #### [facility] CLIA [id number] [address] [place] [address] [place] IgM SerPl-mCncon 10-17-2022 IgM [Mass/Vol] 199 mg/dL Normal 40-230 [facility] Comment on above: Order Comment: Speci men Type: BLOOD SPECIMEN Ordering Facility: [facility] Address: [address] [place] [address] Performed By: #### 3 016-3, 1987-08, 2156-09 #### [facility] CLIA [id number] [address] [place] [address] [place] LDH SerPl-cCncon 10-17-2022 LDH [Catalytic activity/Vol] 160 U/L Normal 135-214 [facility] Comment on above: Order Comment: Speci men Type: BLOOD SPECIMEN Ordering Facility: [facility] Address: [address] [place] [address] Performed By: #### 3 016-3, 1987-08, 2156-09 #### [facility] IA [id number] [address] [place] [address] [place] ORGANIC ACIDS UR, QUANT W/CO NSULTon 10-17-2022 2-Hydroxyglutarate/Cr eatinine (U) [Molar ratio] 3.6 umol/mmolCr Normal 0.6-17.7 [facility] Comment on above: Order Comment: Speci men Type: URINE SPECIMEN Ordering Facility: [facility] Address: [address] [place] [address] Performed By: #### L [id number] #### [facility] CLIA [id number] [address] [place] [address] [place] 2-Hydroxyisovalerate/ Creatinine (U) [Molar ratio] <0.1 Normal 0.0-0.1 [facility] Comment on above: Order Comment: Speci men Type: URINE SPECIMEN Ordering Facility: [facility] Address: [address] [place], [place] [address] Performed By: #### L [id number] #### [facility] CLIA [id number] [address] [place] [address] [place] 2-Wwvmkw-4-hydroxybut yrate (C5-OH)/Creatinine (U) [Molar ratio] <0.6 Normal 0.0-1.3 [facility] Comment on above: Order Comment: Speci men Type: URINE SPECIMEN Ordering Facility: [facility] Address: [address] [place], [place] [address] Performed By: #### L [id number] #### [facility] CLIA [id number] [address] [place] [address] OF [place] 2-Methylbutyrylglycin e/Creatinine (U) [Molar ratio] 0.4 umol/mmolCr Normal 0.0-0.4 [facility] Comment on above: Order Comment: Speci men Type: URINE SPECIMEN Ordering Facility: [facility] Address: [address] [place], [place] [address] Performed By: #### L [id number] #### [facility] CLIA [id number] [address] [place] [address] [place] 2-Methylcitrate/Creat inine (U) [Molar ratio] 1.8 umol/mmolCr Normal 1.0-13.9 [facility] Comment on above: Order Comment: Speci men Type: URINE SPECIMEN Ordering Facility: [facility] Address: [address] [place], [place] [address] Performed By: #### L [id number] #### [facility] CLIA [id number] [address] [place] [address] [place] 2-Oxoadipate/Creatini ne (U) [Molar ratio] <1.6 Normal 0.0-3.3 [facility] Comment on above: Order Comment: Speci men Type: URINE SPECIMEN Ordering Facility: [facility] Address: [address] [place] [address] Performed By: #### L [id number] #### [facility] CLIA [id number] [address] [place] [address] 3-Hydroxyglutarate/Cr eatinine (U) [Molar ratio] 0.0 umol/mmolCr Normal 0.0-0.7 [facility] Comment on above: Order Comment: Speci men Type: URINE SPECIMEN Ordering Facility: [facility] Address: [address] [place] [address] Performed By: #### L [id number] #### [facility] CLIA [id number] [address] [place] [address] 3-Hydroxyisovalerate/ Creatinine (U) [Molar ratio] 5.0 umol/mmolCr Normal 2.1-27.3 [facility] Comment on above: Order Comment: Speci men Type: URINE SPECIMEN Ordering Facility: [facility] Address: [address] [place] [address] Performed By: #### L [id number] #### [facility] CLIA [id number] [address] [place] [address] 3-Methylcrotonylglyci ne/Creatinine (U) [Molar ratio] <0.3 Normal <0.3 [facility] Comment on above: Order Comment: Speci men Type: URINE SPECIMEN Ordering Facility: [facility] Address: [address] [place] [address] Performed By: #### L [id number] #### [facility] CLIA [id number] [address] [place] 3-Methylglutaconate/C reatinine (U) [Molar ratio] 0.7 umol/mmolCr Normal 0.0-2.0 [facility] Comment on above: Order Comment: Speci men Type: URINE SPECIMEN Ordering Facility: [facility] Address: [address] [place] [address] Performed By: #### L [id number] #### [facility] CLIA [id number] [address] [place] [address] 3-Methylglutarate/Cre atinine (U) [Molar ratio] 0.5 umol/mmolCr Normal 0.0-0.6 [facility] Comment on above: Order Comment: Speci men Type: URINE SPECIMEN Ordering Facility: [facility] Address: [address] [place], [place] [address] Performed By: #### L [id number] #### [facility] CLIA [id number] [address] [place] [address] OF [facility] 4-Hydroxyphenylacetat e/Creatinine (U) [Molar ratio] 149.0 umol/mmolCr High 5.7-147.5 [facility] Comment on above: Order Comment: Speci men Type: URINE SPECIMEN Ordering Facility: [facility] Address: [address] [place], [place] [address] Performed By: #### L [id number] #### [facility] CLIA [id number] [address] [place] [address] OF [facility] 4-Hydroxyphenyllactat e/Creatinine (U) [Molar ratio] 4.3 umol/mmolCr Normal 1.3-23.0 [facility] Comment on above: Order Comment: Speci men Type: URINE SPECIMEN Ordering Facility: [facility] Address: [address] [place] [address] Performed By: #### L [id number] #### [facility] CLIA [id number] [address] [place] [address] OF [place] 4-Hydroxyphenylpyruva te/Creatinine (U) [Molar ratio] 0.0 umol/mmolCr Normal <=0.0 [facility] Comment on above: Order Comment: Speci men Type: URINE SPECIMEN Ordering Facility: [facility] Address: [address] Performed By: #### L [id number] #### [facility] CLIA [id number] [address] OF [place] 5-Oxoproline/Creatini ne (U) [Molar ratio] 1.9 umol/mmolCr Normal 0.4-3.1 [facility] Comment on above: Order Comment: Speci men Type: URINE SPECIMEN Ordering Facility: [facility] Address: [address] [place] [address] Performed By: #### L [id number] #### [facility] CLIA [id number] [facility] [place] [address] [place] Acetoacetate/Creatini ne (U) [Molar ratio] <0.9 High 0.0-0.5 [facility] Comment on above: Order Comment: Speci men Type: URINE SPECIMEN Ordering Facility: [facility] Address: [address] Performed By: #### L [id number] #### [facility] CLIA [id number] [address] [place] [address] [place] Aconitate/Creatinine (U) [Molar ratio] 14.8 umol/mmolCr Normal 8.5-109.6 [facility] Comment on above: Order Comment: Speci men Type: URINE SPECIMEN Ordering Facility: [facility] Address: [address] Performed By: #### L [id number] #### [facility] CLIA [id number] [address] STATES [place] Adipate/Creatinine (U) [Molar ratio] 3.0 umol/mmolCr Normal 0.3-9.2 [facility] Comment on above: Order Comment: Speci men Type: URINE SPECIMEN Ordering Facility: [facility] Address: [address] [place] [address] Performed By: #### L [id number] #### [facility] CLIA [id number] [address] [place] [address] [place] Alpha hydroxybutyrate/Creat inine (U) [Molar ratio] <1.0 Normal 0.0-2.7 [facility] Comment on above: Order Comment: Speci men Type: URINE SPECIMEN Ordering Facility: [facility] Address: [address] Performed By: #### L [id number] #### [facility] CLIA [id number] [address] [place] [address] [place] Alpha ketoglutarate/Creatin ine (U) [Molar ratio] 4.9 umol/mmolCr Normal 0.2-42.7 [facility] Comment on above: Order Comment: Speci men Type: URINE SPECIMEN Ordering Facility: [facility] Address: [address] [place] [address] Performed By: #### L [id number] #### [facility] CLIA [id number] [address] [place] [address] [place] Benzoate/Creatinine (U) [Molar ratio] <12.2 Normal 0.0-14.6 [facility] Comment on above: Order Comment: Speci men Type: URINE SPECIMEN Ordering Facility: [facility] Address: [address] [place] [address] Performed By: #### L [id number] #### [facility] CLIA [id number] [address] [place] [address] [place] Beta hydroxybutyrate/Creat inine (U) [Molar ratio] <1.6 Normal 0.1-2.6 [facility] Comment on above: Order Comment: Speci men Type: URINE SPECIMEN Ordering Facility: [facility] Address: [address] [place] [address] Performed By: #### L [id number] #### [facility] CLIA [id number] [address] [place] [address] [place] Butyrylglycine/Creati nine (U) [Molar ratio] 0.0 umol/mmolCr Normal 0.0-0.7 [facility] Comment on above: Order Comment: Speci men Type: URINE SPECIMEN Ordering Facility: [facility] Address: [address] Performed By: #### L [id number] #### [facility] CLIA [id number] [address] [place] [address] [place] Creatinine (U) [Mass/Vol] 53.5 mg/dL Normal 42.2-237.9 [facility] Comment on above: Order Comment: Speci men Type: URINE SPECIMEN Ordering Facility: [facility] Address: [address] Performed By: #### L [id number] #### [facility] CLIA [id number] [address] [place] [address] [place] Ethylmalonate/Creatin ine (U) [Molar ratio] 1.2 umol/mmolCr Normal 0.5-6.2 [facility] Comment on above: Order Comment: Speci men Type: URINE SPECIMEN Ordering Facility: [facility] Address: [address] [place] [address] Performed By: #### L [id number] #### [facility] CLIA [id number] [address] [place] [address] [place] Fumarate/Creatinine (U) [Molar ratio] 0.9 umol/mmolCr Normal 0.3-2.6 [facility] Comment on above: Order Comment: Speci men Type: URINE SPECIMEN Ordering Facility: [facility] Address: [address] [place], [place] [address] Performed By: #### L [id number] #### [facility] CLIA [id number] [address] [place] [address] [place] Glutarate/Creatinine (U) [Molar ratio] 0.1 umol/mmolCr Normal 0.0-1.4 [facility] Comment on above: Order Comment: Speci men Type: URINE SPECIMEN Ordering Facility: [facility] Address: [address] Performed By: #### L [id number] #### [facility] CLIA [id number] [address] [place] [address] [place] Hexanoylglycine/Creat inine (U) [Molar ratio] 0.1 umol/mmolCr Normal 0.0-0.1 [facility] Comment on above: Order Comment: Speci men Type: URINE SPECIMEN Ordering Facility: [facility] Address: [address] Performed By: #### L [id number] #### [facility] CLIA [id number] [address] [place] [address] [place] Isobutyrylglycine/Cre atinine (U) [Molar ratio] 0.6 umol/mmolCr Normal 0.0-1.2 [facility] Comment on above: Order Comment: Speci men Type: URINE SPECIMEN Ordering Facility: [facility] Address: [address] Performed By: #### L [id number] #### [facility] CLIA [id number] [address] [place] [address] [place] Isocitrate/Creatinine (U) [Molar ratio] 48.3 umol/mmolCr Normal 9.1-271.9 [facility] Comment on above: Order Comment: Speci men Type: URINE SPECIMEN Ordering Facility: [facility] Address: [address] [place] [address] Performed By: #### L [id number] #### [facility] CLIA [id number] [address] [place] [address] OF [place] Lactate/Creatinine (U) [Molar ratio] 9.8 umol/mmolCr Normal 2.9-47.2 [facility] Comment on above: Order Comment: Speci men Type: URINE SPECIMEN Ordering Facility: [facility] Address: [address] [place], [place] [address] Performed By: #### L [id number] #### [facility] CLIA [id number] [address] [place] [address] OF [facility] Malate/Creatinine (U) [Molar ratio] 0.3 umol/mmolCr Normal 0.0-1.1 [facility] Comment on above: Order Comment: Speci men Type: URINE SPECIMEN Ordering Facility: [facility] Address: [address] [place], [place] [address] Performed By: #### L [id number] #### [facility] CLIA [id number] [address] [place] [address] [place] Malonate/Creatinine (U) [Molar ratio] 0.0 umol/mmolCr Normal 0.0-0.1 [facility] Comment on above: Order Comment: Speci men Type: URINE SPECIMEN Ordering Facility: [facility] Address: [address] [place], [place] [address] Performed By: #### L [id number] #### [facility] CLIA [id number] [address] [place] [address] [place] Methylmalonate/Creati nine (U) [Molar ratio] <0.4 Normal 0.0-0.6 [facility] Comment on above: Order Comment: Speci men Type: URINE SPECIMEN Ordering Facility: [facility] Address: [address] [place] [address] Performed By: #### L [id number] #### [facility] CLIA [id number] [address] OF [place] Methylsuccinate/Creat inine (U) [Molar ratio] 0.2 umol/mmolCr Normal 0.0-1.4 [facility] Comment on above: Order Comment: Speci men Type: URINE SPECIMEN Ordering Facility: [facility] Address: [address] Performed By: #### L [id number] #### [facility] CLIA [id number] [address] [place] [address] [place] N-acetylaspartate/Cre atinine (U) [Molar ratio] 1.6 umol/mmolCr Normal 0.1-8.9 [facility] Comment on above: Order Comment: Speci men Type: URINE SPECIMEN Ordering Facility: [facility] Address: [address] Performed By: #### L [id number] #### [facility] CLIA [id number] [address] [place] [address] [place] N-acetyltyrosine/Crea tinine (U) [Molar ratio] <0.2 Normal 0.0-1.2 [facility] Comment on above: Order Comment: Speci men Type: URINE SPECIMEN Ordering Facility: [facility] Address: [address] Performed By: #### L [id number] #### [facility] CLIA [id number] [address] [place] [address] [place] Oxalate/Creatinine (U) [Molar ratio] <1.0 Normal 0.7-12.4 [facility] Comment on above: Order Comment: Speci men Type: URINE SPECIMEN Ordering Facility: [facility] Address: [address] Performed By: #### L [id number] #### [facility] CLIA [id number] [address] [place] [address] [place] Pyruvate/Creatinine (U) [Molar ratio] <0.2 Normal 0.1-2.6 [facility] Comment on above: Order Comment: Speci men Type: URINE SPECIMEN Ordering Facility: [facility] Address: [address] [place] [address] Performed By: #### L [id number] #### [facility] CLIA [id number] [address] [place] [address] [place] Sebacate (C8)/Creatinine (U) [Molar ratio] 0.0 umol/mmolCr Normal [facility] Comment on above: Order Comment: Speci men Type: URINE SPECIMEN Ordering Facility: [facility] Address: [address] Performed By: #### L [id number] #### [facility] CLIA [id number] [address] [place] [address] OF [place] Suberate/Creatinine (U) [Molar ratio] 2.5 umol/mmolCr Normal 0.0-7.4 [facility] Comment on above: Order Comment: Speci men Type: URINE SPECIMEN Ordering Facility: [facility] Address: [address] Performed By: #### L [id number] #### [facility] CLIA [id number] [address] [place] [address] OF [place] Suberylglycine/Creati nine (U) [Molar ratio] 0.0 umol/mmolCr Normal <=0.0 [facility] Comment on above: Order Comment: Speci men Type: URINE SPECIMEN Ordering Facility: [facility] Address: [address] [place] [address] Performed By: #### L [id number] #### [facility] CLIA [id number] [address] [place] [address] [place] Succinate/Creatinine (U) [Molar ratio] 1.8 umol/mmolCr Normal 0.3-27.4 [facility] Comment on above: Order Comment: Speci men Type: URINE SPECIMEN Ordering Facility: [facility] Address: [address] Performed By: #### L [id number] #### [facility] CLIA [id number] [address] Succinylacetone/Creat inine (U) [Molar ratio] <0.4 Normal <0.4 [facility] Comment on above: Order Comment: Speci men Type: URINE SPECIMEN Ordering Facility: [facility] Address: [address] [place] [address] Performed By: #### L [id number] #### [facility] CLIA [id number] [facility] [address] UOA CONSULTATION Normal [facility] Comment on above: Order Comment: Speci men Type: URINE SPECIMEN Ordering Facility: [facility] Address: [address] [place] [address] Result Comment: This urine organic acid analysis [...] and its performance characteristics determined by the [facility]. It has not been cleared or approved by the US Food and Drug Administration. The FDA had determined that such clearance or approval is not necessary. Performed By: #### L [id number] #### [facility] CLIA [id number] [address] [place] [address] UOA REVIEW Reviewed by Patrick Proctor MD, Ph.D ([id number]) [facility] Comment on above: Order Comment: Speci men Type: URINE SPECIMEN Ordering Facility: [facility] Address: [address] [place] [address] Performed By: #### L [id number] #### [facility] CLIA [id number] [address] [place] [address] [place] Uracil/Creatinine (U) [Molar ratio] 0.9 umol/mmolCr Normal 0.0-5.1 [facility] Comment on above: Order Comment: Speci men Type: URINE SPECIMEN Ordering Facility: [facility] Address: [address] [place] [address] Performed By: #### L [id number] #### [facility] CLIA [id number] [address] [place] [address] OF [place] PYRUVATE+LACTATE BLon 2022 Lactate [Moles/Vol] 1.2 mmol/L Normal 0.5-2.2 [facility] Comment on above: Order Comment: Speci men Type: BLOOD SPECIMEN Ordering Facility: [facility] Address: [address] [place] [address] Result Comment: This test was developed and its performance characteristics determined by [facility] [place] ([facility] It has not been cleared or approved by the FDA. [facility] is regulated under CLIA as qualified to perform high-complexity testing. This test is used for clinical purposes. It should not be regarded as investigational or for research. Performed By: #### L ACPYR #### [facility] CLIA [id number] [address] [place] [address] [place] Pyruvate (Bld) [Moles/Vol] 0.04 mmol/L Normal 0.03-0.10 [facility] Comment on above: Order Comment: Speci men Type: BLOOD SPECIMEN Ordering Facility: [facility] Address: [address] [address] Result Comment: This test was developed and its performance characteristics determined by [facility] [place] ([facility]). It has not been cleared or approved by the FDA. [facility] is regulated under CLIA as qualified to perform high-complexity testing. This test is used for clinical purposes. It should not be regarded as investigational or for research. Performed By: #### L ACPYR #### [facility] CLIA [id number] [address] [facility] [place] [address] [place] T4 Free SerPl-mCncon 023 Free T4 [Mass/Vol] 1.3 ng/dL Normal 0.9-1.7 [facility] Comment on above: Order Comment: Rl basilio Type: BLOOD SPECIMEN Ordering Facility: [facility] Address: [address] [place] [address] Performed By: #### 3 016-3, 1987-08, 2156-09 #### [facility] CLIA [id number] [facility] [place] [address] [place] TSH SerPl-aCncon 10-17-2022 TSH Qn 2.050 m[IU]/L Normal 0.270-4.200 [facility] Comment on above: Order Comment: Rl basilio Type: BLOOD SPECIMEN Ordering Facility: [facility] Address: [address] [place] [address] Result Comment: If t he patient is , TSH reference range varies by gestational period: First Trimester (weeks 9-12): 0.180-2.990 mIU/L Second Trimester: 0.110-3.980 mIU/L Third Trimester: 0.480-4.710 mIU/L Olman Mcnamara et al. A Practical Approach for the Verifications and Determination of Site- and Trimester-Specific Reference Intervals for Thyroid Function tests in . Thyroid, 2019:29:3:412-420. Reji Patterson, et al. 2017 Guidelines of the [place] Thyroid [employer] for the Diagnosis and Management of Thyroid Disease during and the . Thyroid, 2017:27:3:315-389. Performed By: #### 3 016-3, 1987-08, 2156-09 #### [facility] CLIA [id number] [facility] [place] [address] [place] VOLTAGE GATED CA IGGon 10-17 P/Q-TYPE CALCIUM CHANNEL ANTIBODY 10.1 pmol/L Normal 0.0-24.5 [facility] Comment on above: Order Comment: Speci men Type: BLOOD SPECIMEN Ordering Facility: [facility] Address: [address] [place], [place] [address] Result Comment: INTE RPRETIVE INFORMATION: P/Q-Type Calcium Channel Antibody 0.0 to 24.5 pmol/L ............. Negative 24.6 to 45.6 pmol/L ............ Indeterminate 45.7 pmol/L or greater.......... Positive This test was developed and its performance characteristics determined by [employer]. It has not been cleared or approved by the [place] Food and Drug Administration. This test was performed in a CLIA certified laboratory and is intended for clinical purposes. Performed By: [employer] [address] [place] [id number] Grades 1 Through 5 Teacher: Terry Jacome MD, PhD Performed By: #### 3 016-3, 1987-, 7 #### [facility] CLIA [id number] [facility] [place] [address] [place] VOLTAGE-GATED POTASSIUM VARGAS ABon 10-17-2022 VOLTAGE-GATED POTASSIUM CHANNEL AB, SER 0 pmol/L Normal 0-31 [facility] Comment on above: Order Comment: Rl basilio Type: BLOOD SPECIMEN Ordering Facility: [facility] Address: [address] [place], [place] [address] Result Comment: INTE RPRETIVE INFORMATION: Voltage-Gated Potassium [...] developed and its performance characteristics determined by [employer]. It has not been cleared or approved by the US Food and Drug Administration. This test was performed in a CLIA certified laboratory and is intended for clinical purposes. Performed By: [employer] [address] [place] [address] Grades 1 Through 5 Teacher: Terry Jacome MD, PhD Performed By: #### 3 016-3, 1987-, 2156-09 #### [facility] CLIA [id number] [facility] [place] [address] [place] [facility] [place] GASTRIC EMPTYING SOLIDon 09-12-2022 NM GASTRIC EMPTYING SOLID * * *Final Report* * * DATE OF EXAM: Sep 12 2022 2:44PM [facility] 0017 - [place] GASTRIC [...] 4 HOURS IS CONSISTENT WITH SEVERE GASTROPARESIS. Utility Specialist: MINAL Transcribe Date/Time: Sep 12 2022 3:02P Dictated by : LUZ MARINA VÁZQUEZ MD This examination was interpreted and the report reviewed and electronically signed by: LUZ MARINA VÁZQUEZ MD on Sep 12 2022 3:05PM EST [id number] N Normal [facility] Stomach Views for gastric emptying solid phase W radionuclide Izabella 09-12-2022 IMPRESSION: EVIDENCE OF DELAYED RATE OF GASTRIC EMPTYING OF SOLID MEAL. ABNORMAL STUDY: 36-50% RETENTION AT 4 HOURS IS CONSISTENT WITH SEVERE GASTROPARESIS. Utility Specialist: MINAL Transcribe Date/Time: Sep 12 2022 3:02P Dictated by : LUZ MARINA VÁZQUEZ MD This examination was interpreted and the report reviewed and electronically signed by: LUZ MARINA VÁZQUEZ MD on Sep 12 2022 3:05PM [facility] * * *Final Report* * * DATE OF EXAM: Sep 12 2022 2:44PM [facility] 0017 - [place] GASTRIC EMPTYING SOLID / PROCEDURE REASON: Nausea [...] (rapid emptying is <30% retention at 1hr). [facility] Provider, Iain mccarthy [place] - 09/12/2022 * * *Final Report* * * DATE OF EXAM: Sep 12 2022 2:44PM [facility] 0017 - [place] GASTRIC [...] (rapid emptying is <30% retention at 1hr). IMPRESSION IMPRESSION: EVIDENCE OF DELAYED RATE OF GASTRIC EMPTYING OF SOLID MEAL. ABNORMAL STUDY: 36-50% RETENTION AT 4 HOURS IS CONSISTENT WITH SEVERE GASTROPARESIS. Utility Specialist: PSCB Transcribe Date/Time: Sep 12 2022 3:02P Dictated by : LUZ MARINA VÁZQUEZ MD This examination was interpreted and the report reviewed and electronically signed by: LUZ MARINA VÁZQUEZ MD on Sep 12 2022 3:05PM EST [facility] Radiology Study observation (narrative) [facility] Stomach Views for gastric emptying solid phase W radionuclide POOrdered By: Ccf Provider on 09-12-2022 [facility] 09-09-2022 CNPN Telephone (AVXRMO) BELGICA HARPER ([id number]) 1990 F Date Time Provider Department 09/09/22 DIEGO RICKS AVXRMO During your visit today, we recorded the [...] Encounter Status:Closed by DIEGO RICKS on 09/09/22 [facility] EGD Study observation Miguelito bender 09-02-2022 [facility] Gastroenterology Gastrointestinal Endoscopy Patient Name: Belgica Harper Procedure Date: 08/31/2022 2:51 PM Date of : 1990 Admit Type: Outpatient Age: 31 Room: [facility] 2 Gender: Female Note Status: Adult Literacy Instructor Override Attending MD: Carol Winn MD Procedure: Upper GI endoscopy Indications: Follow-up of Helicobacter pylori, Follow-up of gastric ulcer Providers: Carol Winn MD Patient Profile: This is a 31 year old female. Refer to note in patient chart for documentation of history and physical. Referring Physician: Carol Winn MD (Referring MD), iGovani Hagen MD (Referring MD) Medicines: Monitored Anesthesia Care Complications: No immediate complications. Requesting Provider: Procedure: Pre-Anesthesia Assessment: - Prior to the procedure, a History and Physical was performed, and patient medications and allergies were reviewed. The patient is competent. The risks and benefits of the procedure and the sedation options and risks were discussed with the patient. All questions were answered and informed consent was obtained. Patient identification and proposed procedure were verified by the physician, the nurse, the association executive and the construction services technician in the procedure room at 14:52 PM. Mental Status Examination: alert and oriented. Airway Examination: normal oropharyngeal airway and neck mobility. Respiratory Examination: clear to auscultation. CV Examination: normal. Prophylactic Antibiotics: The patient does not require prophylactic antibiotics. Prior Anticoagulants: The patient has taken no anticoagulant or antiplatelet agents. ASA Grade Assessment: II - A patient with mild systemic disease. After reviewing the risks and benefits, the patient was deemed in satisfactory condition to undergo the procedure. The anesthesia plan was to use monitored anesthesia care (MAC). Immediately prior to administration of medications, the patient was re-assessed for adequacy to receive sedatives. The heart rate, respiratory rate, oxygen saturations, blood pressure, adequacy of pulmonary ventilation, and response to care were monitored throughout the procedure. The physical status of the patient was re-assessed after the procedure. After obtaining informed consent, the endoscope was passed under direct vision. Throughout the procedure, the patient's blood pressure, pulse, and oxygen saturations were monitored continuously. The Endoscope was introduced through the mouth, and advanced to the second part of duodenum. I was present and participated during the entire procedure, including non-mccarty portions, and during the administration and monitoring of Moderate Sedation. The upper GI endoscopy was accomplished without difficulty. The patient tolerated the procedure well. Moderate Sedation: MAC anesthesia was administered by the anesthesia team. Findings: The hypopharynx was normal. The examined esophagus was normal. The Z-line was regular and was found 37 cm from the incisors. Suspect gastroparesis due to retained gastric contents. Several biopsies were obtained with cold forceps for histology in the gastric antrum, as well as several biopsies in the gastric body. The exam of the stomach was otherwise normal. The examined duodenum was normal. Biopsies were taken with a cold forceps for histology. Impression: - Normal hypopharynx. - Normal esophagus. - Z-line regular, 37 cm from the incisors. - Possible Gastroparesis. Retained food in the stomach - Normal examined duodenum. Biopsied. - Biopsies performed in the gastric (more content not included)... [employer] [facility] SURGICAL PATHOLOGYOrdered By : Jameel Jasmine on 09-01-2022 Case Report Surgical Pathology Report Case: [id number] Authorizing Provider: Carol Winn MD Collected: 08/31/2022 03:04 PM Ordering Location: Ambulatory Surgery Received: 08/31/2022 09:20 PM Pathologist: Jameel Jasmine MD Specimens: A) - SMALL INTESTINE BIOPSY, r/o celiac B) - ANTRUM (STOMACH) BIOPSY, r/o hpylori C) - STOMACH BIOPSY, gastric body r/o hpylori [facility] Work Phone: Diagnosis Comment f4jpsVIxBZCffWDnCACo N UdgylQfPQEyrHZgT2Vnqo doVWcxZM9pJR9gqPaafOV srWUeWLXrGeJtd5jqo151 kKOta3puCPDKhaiauSh6j MpeO79nf9J8LgloL09eqF WaHJS5GMJtRIXfdCPdPZH kDEM1HXTegQGdF9ecRRBi ME3xavqeABzyMRrsADWde JN4NJVvyXOvM8QtSJOyUO nxWWHeecs9MbTzEy0mePP yeTcyMFxwYXJkXHBsYWlu JNLvNzTdMGgykv8hV21ad NAlBMcekAesJBEpj57xd4 uai0DclK13AWL4HSKsgOp hkEYzZKLdpUz5QKX9kPIo LStoaAkeeCK8F6s0EIhif HJhZXBpdGhlbGlhbCBseW 0pbJ6uhTSuj7ltTrWLeHL sMBVasD4ecU2edhSqagZk xq49JMKueBrdOXg2SXOiL WNpZmljOyBkaWZmZXJlbn VoUEodI82te3phXHGxhEo dypNae536eZOsxF2mbIXs ZSBsYXRlbnQgIGNlbGlhY lCefQA4TWouDSRgtHC8wC SnvmPcQFGiMEVbHx7ooRg eSLOEI7XQAGYoKT9zRVjk YsKfcGrdeAUsB9PqdMUvV V27AENylHjqJZxzmuNzaP RpbmcgSGVsaWNvYmFjdGV bIYE5kG8gbNsmAN2hjcmj y4LrSWEuMkBxC09cfzTpI WOwYLsfeDnrj3Rfh4zoZ2 ykv9W2GJyagi6ffTBgmK= = [facility] Work Phone: FINAL DIAGNOSIS c1dxsXWdSNZfpNWhXNWl N YvgimOnBWSwkCEvN5Wxsm umTHdaTS8dQH4wiWdmiEO vtPHbKGClYzIdl9qlk900 hSTkt4yoXXSDtgxknRq6c CagW71ia0M9LeprS78rrO FdKFU2MVRfGUIwlVMmZFT sLBZ5GDMhoVSfY2uqCNGw JC1emeuhRRotRVgpDBWjd SP3IWCpzZUhK5SjLQJzFL ofEVRjfot0DtAqWx2ueCJ yeTcyMFxwYXJkXHBsYWlu JWAsRkXyWQ0hPSGpKImqG GludGVzdGluZSwgYmlvcH H5ZshgfQ0oKM6LuCQyoKT dcmRfm4ZslkRrMI37T65r OJP4aHNuWP6ted4efJL7o Xehc8KkBVLrY3xnuZJxoG UxMLHpbmMkp5awM1v2M7W hdGNoeSBpbmNyZWFzZSBp biBpbnRyYWVwaXRoZWxpY YdzaHttoTleL1v5PKEtfD ehJNgyuN8vLHIbUIRXyP8 jMRQqATXzacWkcY7qPDFw z3QcdLepsSveXYXpYHTxj IIvQeMdwPNuCZF0nC7pwY Skx8JvG6ytfKZjZPEsci7 rkERpBVS1lPLzSMnvs6Gb iCXjt8aceK5bPM1Oq5Lyb Mg5LQZvn6CeTRCuoTAcRw FngLPjCJE2sJ8meINumzg onirebPWcr09fdr90gHxl BBWgdYDtazfgA7zheS9sG TadydLmEy8iSIK2d87hC4 yfFLJnDPosWBOvu5LtlEr cbGluZSAtSGVsaWNvYmFj kIUbPTR3nV3wbHZir2WhH 7jkbOYvMORehv6fqWCyJA Y6aBIzVDslj0YkjZEiu5t mjG9iTY5Lm6NiqSx1AXYd d8NmRMBljUBrZwKkrDKlB DA5eP4qsBBdbqsttegnoA Nkd60zxx03cWwqOXSutHS lcpszB4szNHE7 [facility] Work Phone: Gross Description q1zxtFEhLDTxmGXTWJWt M GToDA3xrAiurZh8gRxpMV SikiI2eSAoRHsbr3zwURJ 4h4pyieXIXaxeZWHeTJiw SPVfooynCwT8EUkhARGrq zlwPAh3LNhhMMOsgXR9DT DkpDJoD6VlUWYoWM6qock 9WGP8IUffBBJsQtD5WHYf DqQaTrtzARe2PBXubiH3H or6KGSfOCRfcJWoj0Q0ZR rcittmOWKegQNaB473KRp zz1SboVGeYWzltKWqCPYQ ZnkcAefcrNorf4HooICoF GlkIDUxMDAwIFxcbmggXF t2CBQhAOeuzWTdHH5yiBd wYnpghAnzu8WsvMEgKXhw SBLxKBDzUCqqSMNdDU5ZD eYfWLPbSKN0LKvrCpQ0AM a7WSKXLoMhNdXgHjYyXEQ eJeOlUSk1QIk7YXjWVaEp JLIoMgIwFLQoGnG5DCjnA yBcXHQgMiBcXGYgQXJpYW mgRHrzqLWeFJ7anXzgvKW pbiBBLiBTTUFMTCBJTlRF N8NUMgCdChiJTFUUGUOje iANClxlcGljTmVzdERvYz EgDQpcbHRycGFyXGxpbjB ccmluMCANClxsdHJjaFxm xmOrZGCyP1QsjtFdRIraX UYpic9cmCudUEUwWFLhzX w0xMPlFFJzzZVvPUIpg7V efDChJXDpq2F5ECQay2E8 GTWgR6tfKEzeoFdgBeP8o yAxLjAgeCAwLjIgeCAwLj LqC41rGNNclAQvzDymx1U lsDd8oEPhKVnwER0mAUUg VRHhAHM2AA7pvChzTQOTN lxlcGljTmVzdERvYzBcdj E5YEZdyNYlTPW0QS8sSHR keaaoLCPgMUGnDSA2OXut eY41bDPpJTGzDBFnoZWuu VxwbGFpbiANCntcKlxlcG apy7LufTWaDBwmHEKyRKP pRDjxEMGqEZ5YDjDnSXUh DZH6AWitKyS5ERb4KFKXW lMgIiAgMzExNDIyNzQiID h7MRe1BHeMEhIiAQPvYdB oVFL6ZWT8AOkuMfAhWTIj MiBcXGYgQXJpYWwgXFxmb BHqZQ4hoSiwuAIrcrlzgo K8SZYtKYspNINqONOCSAY DEMKnM6SFZCDATCjtFhrX UFNZXHBhciANClxlcGljT mVzdERvYzEgDQpcbHRycG FyXGxpbjBccmluMCANClx iuDWgpPjidlIsTGUfK6Qi alWiBZdyQCNrtf8wmByoS REhXQKbvHe5aMHmMXTpbX WoBKOel9UocWOoFNSpe5Y 6DGMyk3W0THUsL1dsPLmb eRazVbA0nvEcRvVuyHQdF iDxvWZcDvAfY21gZMTepT HgtCoop5DskTj6dBTwBVv tDE3sLOHzGHQbUMA4RS4v bGluZSANClxlcGljTmVzd TEhMpXhftO7FXGziGSvIO V4XK9kKZHbvppqDOVwBYL fYCC6RRnsxI97uQKcIGRb MTZccGFyfVxwbGFpbiANC unoQeikiKsmy6PtzHOeNZ lkIDUxMDAyIFxcZGIgIE9 PIoPtOPJnPZV2UAwnNuA1 PHt4GEQPFoDqMrAcGyBeV FIpWpYvVGe8JIi6LVfQTv OtQLTrAmFtWFc9XyN6IUm yNyBcXHQgMiBcXGYgQXJp TXbkHBehfVCzRR8jcViln LScmcgpvmN2FDBlOYcaPQ JrBDMXS70PW5hjTzvYHTR ZXHBhciANClxlcGljTmVz dERvYzEgDQpcbHRycGFyX GxpbjBccmluMCANClxsdH RdsIbozoGmKORuB1LbwiA kSPynHLMmxn6muDpkNDZd UKPleHf8eVZzFQOxcMLnI JFvv3VhzPYlBVMrc4N8GA Qzz2R6OCRfP8wdMOgnbPz oCrH4naVpTgiukTOxKaXg uRHeQdMlI10hRESpaATef Dmhz2SfaSx6pPPjQMdfGQ 6vOOBsUVYcSWB9CA7noUg sXMOrEODkqnLKIujZLQ7c eSAxMSwgMjAyMyAxOjQxI VDMJM3dqJNgDO4SUQLafu MBPfutb8LpABK9OF1tnyS 9sR9zZWUbsuRkdh9dVLWh oZUZxWO2XQgxdfFiJ0sdl jhoYCU4WJToPBU2C7mgTY DGesLeTTHScMY6DTylxwF qIY1NDNP1KLv8ZCIranMJ ClxlcGljTmVzdERvYzBcd eR5BHHxnNPwYTG3OD2xGU VmileaQLFxEBCbTKM8FIe hzD43wAOpOFDoHKCuhZGf aMwxsXDsqpVFDumnjY8wY nFsw3inwRx0UEDLPxaxoK KskmcegsS4SSQqv1ttgAy gu3GglIKeVO0wuZvgcK4z ZnMxNiANCn0= [facility] Work Phone: Performing Lab o8yqqMKnJCTadLYwHgNn M NFuZLNme1djHSOknNRwCd EwMzNcZnRuYmpcdWMxXGR kUmBap2fbu774bFIwg9vj TDYdMhM6gFXnIIYpwTOtX 131HSXpSLrxm4too8NdUM JxrYGbp6T3JFMQlcdkuGo 2hLcbH23kn6U8IjgcH3oo RBPhPDPwM2BnSH4qGKCrC sx5CNQ3HXO8MEPlMZYzR4 MgQW2qXGFryRGrOGb1r4e stEzkWUHlEAV2l2bnQWrt xxTuDY6ags1xvPo2q6kbo zEgRGVmYXVsdCBQYXJhZ3 NroFyxYl4lnOz6iVzxDsv oGQR2Kio3PX8cpb53vwv1 lSmoSSCgitneGdA0GLfkI HUlwbaxMCs8SWqsTQFndO L3RZFzlWFqD3EjTDpzTD3 zzbj1ABX0SRfoEDSyZmR0 NDBcaGVhZGVyeTcyMFxmb 104VZO6VaXnSF1cT4Juj7 W0yB6rxOKbNGRqwUWbZhY pRQZthr6miUQnZExgk2Ra WQU1ioC0dLSmbEEpEWUoT L11Xuiph6WeNqqfu5AbC2 2woUK5HPliw6vaIH7fIiW 3fkGeTPsqm9tlzF2fVeO2 QWpsSE7yHB4jRHCdvA2na mxjXHBnYnJkcmhlYWRccG bffbXtHw8kkZqsVWJ9XSt wH0pzbB4vAyL1FVulX5nv mF6wIPj9RWvapYG1SBAgc H5qUU5ulectg4xhOJitJL quYDSyfzC2gqTeCFRrkJK nH3AlcV1gQROfNW7yjvfn b0ttLBN9CJqpAOKxBKF5B tOjYKFnv0Fczha8CvQvg5 DwoGAuQLgsV13pf763NNB sjkBsN4ikhFOvabtffIKl pfygIOkazmI1JETzVHYgS WluXGYxXGZzMjJcbGFuZz EwMzNcaGljaFxmMVxkYmN xSFYiFRfxY0wtOlMgIvJm NpEFwUXirb8kwIxlZMygj XMpaEUauHX6pG3qGAIrfm Icyq8yACBmlVDFkYF2FCn egmXyD4qkufxlZAL3KVCr GKT6L7sxUGGNvxUfJNIuH YGrsRVjFAPQISQ9LMB5TE HiGUNVITSdLVA0QJN7QYN wOTRccGFyXHBhclxwYXJk XHBsYWluXGYwXGZzMjRcc AovvD7kZjHlVkCdYovhEY 6cBASyI8rbsJCxKOWwSMK gS0niRgOnaS2jwBdfVXsc ZjJcZnMyMlxsdHJjaCBMY EPpmrP4m0R7XHiepMNeia xmMVxmczIyXGxhbmcxMDM hTAczX1kfTlFcWQEesNdj UZokj2PgLORaIVEnKhByE HjyIAM1q7T2KJrhtXMnus ABRyCDFB8agPPrqngsAT9 ELlxwYXJ9 [facility] Work Phone: [facility] Work Phone: EGD Study observation Narrat iveon 08-31-2022 Radiology Study observation (narrative) [facility] CITRATE URINE 24HRon 023 Citric Acid, U, 24hr 472 mg/24 hr Normal 320-1240 Th [facility] [place] Comment on above: Result Comment: This test was developed and its performance characteristics determined by [facility]. It has not been cleared or approved by the Food and Drug Administration. Performed By: #### A LPHPHN #### [facility] [address] [place] [address] Dr. Li Nagel Citric Acid, Urine 472 mg/L Normal Undefined [facility] Comment on above: Performed By: #### A LPHPHN #### [facility] [address] [place], [place] [address] Dr. Li Nagel OXALATE 24HR URINEon 023 Oxalates, Urine 19 mg/L Normal Undefined [facility] Comment on above: Performed By: #### O X24HR #### [facility] [address] [place] [address] [address] Li Nagel Oxalates, Urine 24hr 19 mg/24 hr Normal 4-31 [facility] Comment on above: Performed By: #### O X24HR #### [facility] [address] [place] [address] Dr. Li Nagel MAGNESIUM 24HR URINEon 07-09 Magnesium 24hr Urine 45.0 mg/24 hr Normal 12.0-293.0 T [facility] Comment on above: Performed By: #### I MMUN G #### [facility] [address] [place] [address] Dr. Li Nagel Magnesium UR 4.5 mg/dL Normal Not Estab. [facility] Comment on above: Performed By: #### I MMUN G #### [facility] [address] [place] [address] Dr. Li Nagel PHOSPHORUS 24HR URINEon 06-22 Phosphorus, Urine 51.4 mg/dL Normal Not Estab. [facility] Comment on above: Performed By: #### P HOS 24 #### [facility] [address] [place] [address] Dr. Li Nagel Phosphorus, Urine 24hr 514 mg/24 hr Normal 261-1078 [facility] Comment on above: Performed By: #### P HOS 24 #### [facility] [address] [place] [address] Dr. Li Nagel URIC ACID 24 HR URINEon 06-22 Uric Acid, Urine 64.0 mg/dL Normal Not Estab. [facility] Comment on above: Performed By: #### A LPHPHN #### [facility] [address] [place] [address] Dr. Li Nagel Uric Acid, Urine 24hr 640.0 mg/24 hr Normal 173.7-902. 1 [facility] Comment on above: Performed By: #### A LPHPHN #### [facility] [address] [place] [address] Dr. Li Nagel CALCIUM 24 HR URINEon 2022 CALC, 24 HR UR 155.0 mg/24 hr Normal 100.0-300.0 [facility] Comment on above: Performed By: #### I MMUN G #### [facility] [address] [place] [address] Dr. Li Nagel UR CALCIUM 15.5 mg/dL Normal 5.1-21.0 [facility] Comment on above: Performed By: #### I MMUN G #### [facility] [address] [place] [address] Dr. Li Nagel UR TOT VOL 1000 ml/[address] [facility] Comment on above: Performed By: #### I MMUN G #### [facility] [address] [place] [address] Dr. Li Nagel Performed By: #### A LPHPHN #### [facility] [address] [place] [address] Dr. Li Nagel CREA 24 HR URINEon 3 CREA, 24 HR UR 1891.80 mg/24 hr Critically high 800.00 -1,800. 00 [facility] Comment on above: Performed By: #### A LPHPHN #### [facility] [address] [place] [address] Dr. Li Nagel URINE CREAT 189.18 mg/dL Normal 20.00-300.00 [facility] Comment on above: Performed By: #### A LPHPHN #### [facility] [address] [place] [address] Dr. Li Nagel PTH INTACTon 07-08-2022 PTH, Intact 41 pg/mL Normal 15-65 [facility] Comment on above: Performed By: #### H EPACUT #### [facility] [address] [place] [address] Dr. iL Nagel SODIUM 24 HR URINEon 023 NA, 24 HR UR 149 mmol/24 hr Normal 40-220 [facility] Comment on above: Performed By: #### A LPHPHN #### [facility] [address] [place] [address] Dr. Li Nagel Sodium (U) [Moles/Vol] 149 mmol/L Critically high 30-90 [facility] Comment on above: Performed By: #### A LPHPHN #### [facility] [address] [place] [address] Dr. Li Nagel BUNon 07-06-2022 Urea nitrogen [Mass/Vol] 11.0 mg/dL Normal 7.0-18.0 [facility] Comment on above: Performed By: #### B UN, URIC, CA, K, NA, CL, CO2, CREA #### [facility] [address] [place] [address] Dr. Li Nagel CALCIUMon 07-06-2022 Calcium [Mass/Vol] 9.0 mg/dL Normal 8.5-10.1 [facility] Comment on above: Performed By: #### B UN, URIC, CA, K, NA, CL, CO2, CREA #### [facility] [address] [place] [address] Dr. Li Nagel CHLORIDEon 07-06-2022 Chloride [Moles/Vol] 107 mmol/L Normal 98-107 [facility] Comment on above: Performed By: #### I MMUN G #### [facility] [address] [place] [address] Dr. Li Nagel CO2on 07-06-2022 CO2 [Moles/Vol] 29.2 mmol/L Normal 21.0-32.0 [facility] Comment on above: Performed By: #### I MMUN G #### [facility] [address] [place] [address] Dr. Li Nagel CREATININEon 07-06-2022 Creatinine [Mass/Vol] 0.97 mg/dL Normal 0.55-1.02 [facility] Comment on above: Performed By: #### B UN, URIC, CA, K, NA, CL, CO2, CREA #### [facility] [address] [place] [address] Dr. Li Nagel EGFR-AF TUNISIAN >60 Normal >=60 [facility] Comment on above: Performed By: #### B UN, URIC, CA, K, NA, CL, CO2, CREA #### [facility] [address] [place] [address] Dr. Li Nagel EGFR-NON AF TUNISIAN >60 Normal >=60 [facility] Comment on above: Performed By: #### B UN, URIC, CA, K, NA, CL, CO2, CREA #### [facility] [address] [place] [address] Dr. Li Nagel NAon 07-06-2022 Sodium [Moles/Vol] 143 mmol/L Normal 136-145 [facility] Comment on above: Performed By: #### I MMUN G #### [facility] [address] [place] [address] Dr. Li Nagel POTASSIUMon 07-06-2022 Potassium [Moles/Vol] 3.6 mmol/L Normal 3.5-5.1 [facility] Comment on above: Performed By: #### I MMUN G #### [facility] [address] [place] [address] Dr. Li Nagel URIC ACID SERUMon 07-06-2022 Urate [Mass/Vol] 4.7 mg/dL Normal 2.6-6.0 [facility] Comment on above: Performed By: #### B UN, URIC, CA, K, NA, CL, CO2, CREA #### [facility] [address] [place] [address] Dr. Li Nagel SURGICAL PATHOLOGYOrdered By : Karan Nieto on 07-04-2022 Case Report Surgical Pathology Report Case: [id number] Authorizing Provider: Carol Winn MD Collected: 06/30/2022 11:43 AM Ordering Location: Ambulatory Surgery Received: 06/30/2022 10:42 PM Pathologist: Karan Nieto MD Specimens: A) - DUODENUM BIOPSY, r/o celiac B) - STOMACH BIOPSY, r/o H pylori [facility] Work Phone: Diagnosis Comment p2fqgGKcCDTkkUPrTDOa N ColhtWuNYMiaYJcR8Dyxz alEKgoZF5mJV2ycNrifIE axBJhKSTdOyYrh5ekc926 sPEka2smAALOksqsuCg3q QapS06dc2K2IfqyY27utW QdTXH2KRNhXPGrcGRkVPV aNNK9VBUfrMGlA3ppENZz CG4fvhqjMEhzMSgeXUYvx DU0DZObsCGeU7MeUBMhAJ mdDCKombq8UnYoQl1kgMT yeTcyMFxwYXJkXHBsYWlu JEYsDcImPP8bTV4qabEpl 2VkIGludHJhZXBpdGhlbG qgwONjhR6hcN6dgRIwrcn hrO9vfLhjNFUwj4GtK2Qh h5YwwxxdyP01fkKgVi1bg t0xeLd4bLVfVSNfWIgwQd Yxp0WrvtSykmVuz9JrK8c alRkgxjV0gNElZVWzbLuv YyBkaXNlYXNlIGFuZCBvd SmlkdVbq12hbPRlb73pUB O3X4geCOXzfXDapSceNPU bi4Ett7KqICceLmPmeYjz fyZdoP3crKEbaD9jSBifp Ojtf0SjR7XokzUtnWllhk uhpD8eAUP4hN9wDJicRS0 kIHNvbWUgbWVkaWNhdGlv smAhVXMinR5tA9WiHLTju aFozWA8eT7mZCngjCnaPY Fbkh6qbgdyaSChr9Xxl2e jR8jaRXK0eLImXXSwsRJg ZcPwA19pd7dbIXYoFVWwB rHooZateGXliCw3FLheNF buBQEpGV9kvIQaoV== [facility] Work Phone: FINAL DIAGNOSIS o6pgaNMrBAMrwGLbJLIf N EjaxgWfWBEcxYDbJ7Owpe wvLTukIK5yNC8ybAuxfOY xrJZqGZJbHmJdg7juy279 jJGmr7kmOMWSuerumAs1y NoqO75am9M2KqtkV11ybQ JcNWP4YZTiYQIpqXIgWTM xCYU8OQAnrHXiL4aeKKUc SB4hodklLCtfRKwqMSOcw GZ4QPXjpEVoB1YkUAHnWS utTOAnwdt9LxCpRa7jcCI yeTcyMFxwYXJkXHBsYWlu MZCoZkExGR8fEMLmXYBpi C8uMPBhw7XszWapxOPwUZ 3eZ27cqEvagJ12GWO3qV7 bhHEsqBZqo4Htg2i5dVKb s9CbRUbvmtvnyY64ldZwf nVawRQnA3N9hlVlYB5dLZ edL6YdXDAvDIKyyzJsVRH waXRoZWxpYWwgbHltcGhv O5s5PTS7RZJfZJTiq58kH B52OigjGPQftXToVTRkFT E8f03mE4mwHSVkh9IetQq pvYVsQC6uA3ThlMLjDuZr kFtblDzuAO51M07rTGQ0l ZIcOODqpo1nnYAyLQI2zI AlMTfvnNtuk4ViI9KjzcK lpQauthjiXTElb4VdMDQx YKJeIQO2rpu4rQMqHAZgf n0= [facility] Work Phone: Gross Description j9gluFEgXIEskJCUJBYq M MTjVG3gvEkowVx6xKbnIL PrnfB4yUPeMGkrk1piTRW 3n6tgowBTBibcVOGwNVxp UQEilvqcBfE5EMafILGvr xngHDe7WGqeEZWswLB2JJ QrnBNzA6KpFMJzHG7lvgn 4EKY9HLeyKOTjIbH9OWCn CsFnIinpNQo8OZZhrhY1C iz2USGuAEAmaLOgi2Y2AO bsqggrZVZtiPBiL081QSt bo8IfcTUtIQxcmXBmMVPR IhldQhfiwEfft0FmpIUbH GlkIDUxMDAwIFxcbmggXF f2EVEdXHntbYMoAK8zjLi aXdileRhsr3BvyQFiHBve KSQaLOMgFQmpYUDsYU5QQ pQaORV3Ejz7Xhq2UmM9CJ s6ECMZAcJoXgKqHkpuHXJ 8QJSkMOl5DWj8MZkTRyQ3 WYUlIAynJKTwNNP3EFh3X FxcdCAyIFxcZiBBcmlhbC WcTEMrPZxuuvZ2MXDhIFb eKFIdDIAUF2SKZbMIBXAB D1CVTQkcGWDoVSmlADOnX 59or9SMw5UiJU5RWKx4wz PvprgawX0hXCXlleRdNJf fgIOyY4ylIoTaNIQVUNLq fFKmPVCsvwYzc0TtGXxjf iBhcmUgbXVsdGlwbGUgcG ptN8TeKM8iZCDgusxxc02 amTC5bOFhzUHhKYabulMg TKYklpruhS8oLT07SPyrZ L4vLPcuBK5nWIHvVhYUg1 RhuIy5MIF5Oj9jwARkYGS brgYohrLdP4Uuj4Q5kBLw QJyzSYOfU13kj7KEp5EhM SWoo2azoPnmb3YibYLwXT ldUUCjkQOsHRqhjS7rEiO cz6luhNu3YJyogyW3BSWg qn6ufFnfpL9uAMx0LIhcV KBlV8GiK8XpSHduKDL3LO AwMiBcXGRiICBPVlIgIiA qIvX2IYP1UGMpTDd7ZBez I1YVMKGnFDX6FJs7NXs2R fB4CNl1KLDNZg0hPPmhDo k7DETaFIE0TKi5FIMbAVA gMiBcXGYgQXJpYWwgXFxm oDXbAJ0jsBiogAXohwxir sD6HNJzTElmAIStIAWQV1 0MW7bkWucOQUFJAZBbycG NClxlcGljTmVzdERvYzEg DQpcbHRycGFyXGxpbjBcc mluMCANClxsdHJjaFxmcz QsSEAkQ2TcmnKeAJetBZM mms5pyFfrKAYjULJ0p12x nWpwU5GpQN8xQTSvdoimb 05etNB3tVNtqZVdDMbhdi IuUCQpewnwbF8mCG1vKBk vMM9rYKvbQT3kAKStFiOC d6NzwXy6DKY0Rx4mfJQhX HNbkyIjxuKiI6Jvu0O3iI UuIFxwYXIgDQpccGFyIA0 SB9Jsy4LyPVbwvVhoQDRs d30quXSxBx7amDQjQPR2E ENsZXZlbGFuZCBDbGluaW TpCIj5AJSxVOCskZzxJEM 6XC1aKBIqNEXqiXRwJGai I3xzYHAjWPHqcMCqXH2PH HBhciANCkpUIDAzLzEwLz ZbTrDvGOd2GiVEGIfcJWL hXKuyEYGiZ24xw4JKl6Vv GKIpb9jtcVkbq2NwmDWzB PizKJVtpBZhSKjuzS8mDi Fjv7vhkRu1UBuresD4SJF wwl2yoDvsdC7mOMdjm2so LDJ0JRKqnQHrqGBqETsrw YkptO9tZdVxAuh4GEjzIZ NwK4CuB2EvtgM3WAMqHLx uXGZzMTYgDQp9 [facility] Work Phone: Performing Lab j1rvmTMnJNFvuXKdNzTa M NMgQABze6qnTFGcySMpIv EwMzNcZnRuYmpcdWMxXGR eTmYne1btq720bBDsq0nc EMXeXhK6nWKdROIgzQNoT 337PIFkFGlsa5sgl9QkZB MujKRwf5I0FKLSgbsewNz 7xQbiJ56ku3U3NajnB6ww JDLfCPImA9QxUB1cNRNyZ tn1PJB2BQC0STYoXYKnH8 YmSZ3tLRRhnLLsNGm5p1p bbGuaMFBgWZY2o4vkJUhl vyWiJN8dia1ilOf4o7hxl zEgRGVmYXVsdCBQYXJhZ3 WmaHghUp2oiXy4aAneMyt uEJL4Bjy0IT5fwu97nof7 uJsoUIWjusdtZvT8BSpeW AXenhrdQKd9LLxrYKHvuV S0WGEhrOOxF3OoHCuiGY3 gjzo3JQU2IIynPGUvDzW6 NDBcaGVhZGVyeTcyMFxmb 444JUT3VwXeEV4zV8Eia8 R9pY9dkXYmHLAtlDTxKsT hIAKark8heEGuJVkun8So THL8wnI6lSGbnLLvTLCjN M83Vtydb4NrMghdu8CbI4 4onMW9HFedz2ubWY4sSjJ 9dpNhGHwek4cwlO7sQgO8 LIbnMA2kJW3eSFHsiM8gs mxjXHBnYnJkcmhlYWRccG ahqqMtLx6oiZzhPAT4MDn pG2vylU8yAoM1STtpT2nd kR4cGGs4ASmqpCG4TKAzm E6lGM8hqmkto1euWYkpUN moEHJkdnK8rrHpIEJwtSS pR0UwoL0gQCVjGD8bfkos g9lwPPQ5QYkgGCTsODD0G bXcLPPlo9Pmpjz3ImUls1 TbnQYhSLfcW45in056KML orqPtK0zmxVZyfqhznRFi ptdkMCybukL4YAIxNXYpY WluXGYxXGZzMjJcbGFuZz EwMzNcaGljaFxmMVxkYmN mGOReTZxnB7qtElCuCpUn YhQPxNHrvc6etLfpUQhrz MNttLKrjPE5gB2dZMVzmy Pbbs7mPBJlaZZOhJJ1ADt xvfMaQ7lwtpqpEOJ1YLJl UKB8I7mxWJPPzyQmNPZaB FKakRBhJRAWMFY4PRO9CD QcNWGXMSOeZBX4WSO3UDZ wOTRccGFyXHBhclxwYXJk XHBsYWluXGYwXGZzMjRcc QytqY9hRoZsCgPdHqejZU 3cRJAdZ4fynTCbCPCmRLP tO3qkOzVidV5neLwbLHlk ZjJcZnMyMlxsdHJjaCBMY NJvcyB7d7G7CJdzbNXiif xmMVxmczIyXGxhbmcxMDM lOGwdT8mbVjEjJRUqaYtt BXbgs4HqQJXzPQUoDvUkJ RbjVKF7m8G5CZbpeZDcdm UHMvYFSO3thEPwsanjVA6 ELlxwYXJ9 [facility] Work Phone: [facility] Work Phone: EGD Study observation Miguelito bender 06-30-2022 [facility] Gastroenterology Gastrointestinal Endoscopy Patient Name: Belgica Harper Procedure Date: 06/30/2022 11:41 AM Date of : 1990 Admit Type: Outpatient Age: 31 Room: [place] [address] Gender: Female Note Status: Finalized Attending MD: Carol Winn MD Procedure: Upper GI endoscopy Indications: Dyspepsia, Nausea with vomiting Providers: Carol Winn MD Patient Profile: This is a 31 year old female. Refer to note in patient chart for documentation of history and physical. Referring Physician: Carol Winn MD (Referring MD), Giovani Hagen MD (Referring MD) Medicines: Monitored Anesthesia Care Complications: No immediate complications. Requesting Provider: Procedure: Pre-Anesthesia Assessment: - Prior to the procedure, a History and Physical was performed, and patient medications and allergies were reviewed. The patient is competent. The risks and benefits of the procedure and the sedation options and risks were discussed with the patient. All questions were answered and informed consent was obtained. Patient identification and proposed procedure were verified by the physician, the nurse, the association executive and the construction services technician in the procedure room at 11:35 AM. Mental Status Examination: alert and oriented. Airway Examination: normal oropharyngeal airway and neck mobility. Respiratory Examination: clear to auscultation. CV Examination: normal. Prophylactic Antibiotics: The patient does not require prophylactic antibiotics. Prior Anticoagulants: The patient has taken no anticoagulant or antiplatelet agents. ASA Grade Assessment: II - A patient with mild systemic disease. After reviewing the risks and benefits, the patient was deemed in satisfactory condition to undergo the procedure. The anesthesia plan was to use monitored anesthesia care (MAC). Immediately prior to administration of medications, the patient was re-assessed for adequacy to receive sedatives. The heart rate, respiratory rate, oxygen saturations, blood pressure, adequacy of pulmonary ventilation, and response to care were monitored throughout the procedure. The physical status of the patient was re-assessed after the procedure. After obtaining informed consent, the endoscope was passed under direct vision. Throughout the procedure, the patient's blood pressure, pulse, and oxygen saturations were monitored continuously. The Endoscope was introduced through the mouth, and advanced to the second part of duodenum. I was present and participated during the entire procedure, including non-mccarty portions, and during the administration and monitoring of Moderate Sedation. The upper GI endoscopy was accomplished without difficulty. The patient tolerated the procedure well. Moderate Sedation: MAC anesthesia was administered by the anesthesia team. Findings: The hypopharynx was normal. The examined esophagus was normal. The Z-line was regular and was found 38 cm from the incisors. Patchy mild inflammation characterized by congestion (edema) and erythema was found in the gastric body. Biopsies were taken with a cold forceps for histology. Two non-bleeding linear and superficial gastric ulcers with no stigmata of bleeding were found in the prepyloric region of the stomach. The largest lesion was 6 mm in largest dimension. The cardia and gastric fundus were normal on retroflexion. The examined duodenum was normal. Biopsies were taken with a cold forceps for histology. Impression: - Normal hypopharynx. - Normal esophagus. - Z-line regular, 38 cm from the incisors. - Gastritis. Biopsied. - Non-bleeding gastric ulcers (more content not included)... PROVATION [facility] Radiology Study observation (narrative) [facility] XR KUB 1 VIEWon 06-30-2022 XR KUB [...] by: JACKSON ADKINS Date: 2022-06-30 07:02 Normal [facility] US ABD RIGHT UPPER QUADRANTo n 06-15-2022 [...] nephrocalcinosis and a few right renal stones. Utility Specialist: MINAL Transcribe Date/Time: Jun 16 2022 7:46A Dictated by : MINERVA LIM MD This examination was interpreted and the report reviewed and electronically signed by: MINERVA LIM MD on Jun 16 2022 7:48AM EST [id number] N Normal [facility] US ABD RT UPPER QUADRANTon 0 06-15-2022 [facility] CT ABD/PEL WO IVCONon 2022 Radiology Result ACTIONABLE Abnormal [facility] No Panel Informationon 05-27 [facility] XR CHEST 2V FRONTAL/LATon XR CHEST [...] tissues: Unremarkable. IMPRESSION: No acute radiographic abnormality. Utility Specialist: [facility] Transcribe Date/Time: May 27 2022 12:39P Dictated by : MARCELA STILL MD This examination was interpreted and the report reviewed and electronically signed by: MARCELA STILL MD on May 27 2022 12:39PM EST [id number] N Normal [facility] [id number]-[id number] PHENOTYP INGon 05-11-2022 Dgefq-8-Scbwmmcmzrs, Serum 130 mg/dL Normal 100-188 [facility] Comment on above: Result Comment: Perf ormed at: CB Performed By: #### A LPHN #### [facility] [address] [place] [address] Dr. Li Nagel Phenotype (PI) MM Normal [facility] Comment on above: Result Comment: [...] Performed at: BN Performed By: #### A [facility] #### [facility] [address] [place] [address] Dr. Li Nagel HEREDITARY HEMOCHROMATOSIS, DNA ANALYSISon 05-11-2022 Hereditary Hemochromatosis Comment Normal [facility] Comment on above: Result Comment: Resu lt: c.845G>A (p.Ded721Dcd) - Not Detected c.187C>G (p.Yqo73Pxd) - Not Detected c.193A>T (p.Szs34Rob) - Not Detected Not associated with increased [...] for patients who are homozygous for c.845G>A (p.Xyo086Xet) and have yet to experience clinical symptoms. . Comments: The most common HFE variants associated with hereditary hemochromatosis are c.845G>A (p.Xcv435Jmb), c.187C>G (p.Tjk56Iff), c.193A>T (p.Kdg15Zms). While patients homozygous for c.845G>A (p.Dau375Lsm) are the most likely to present clinical symptoms, less than 10% develop clinically significant iron overload with tissue and organ damage. . Genetic counseling is recommended to discuss the potential clinical implications of positive results, as well as recommendations for testing family members. Genetic Coordinators are available for health care providers to discuss results at [phone]). . Test Details: Three variants analyzed: c.845G>A (p.Udz819Iel), commonly referred to as C282Y c.187C>G (p.Jai63Znx), commonly referred to as H63D c.193A>T (p.Vus05Cmm), commonly referred to as S65C . Methods/Limitations: [...] developed and its performance characteristics determined by [employer]. It has not been cleared or approved by the Food and Drug Administration. . References: Brodie BR, Yoav PC, Deborah KV, Raymond LW, Ramsey ; [employer] Liver Diseases. Diagnosis and management of hemochromatosis: 2011 practice guideline by the [employer] the [employer] Liver Diseases. Hepatology. 2011 Oct;54(1):328-43. doi: 10.1002/hep.53069. PMID: 32857476; PMCID: [id number]. Cora G, Olegario P, Fabio MCDONALD, Tabatha H, Love O, Zev S, Vazquez I, Kofi M, Sunitha S. [facility] best practice guidelines for the molecular genetic diagnosis of hereditary hemochromatosis (HH). Eur J Hum Margaret. 2016 Jul;24(4):479-48. doi: 10.1038/ejhg.2015.128. Epub 2014Oct 29. PMID: 57698852; PMCID: [id number]. . Kenya Hager, PhD, FACMG Dm Reyna, PhD Alexandro Rodriguez, PhD, FACMG Jhony Hammond, PhD, FAC Oumar Avila, PhD, FAC Rob Brand, PhD, FAC Pascale Gracia, PhD, FAC Lala Marvin, PhD, FAC Performed By: #### H EPACUT #### [facility] [address] [place] [address] Dr. Li Nagel DENY by IFAon 05-06-2022 Antinuclear Antibodies, IFA Negative Normal [facility] Comment on above: Result Comment: Nega tive <1:80 Borderline 1:80 Positive >1:80 ICAP nomenclature: AC-0 For more information about Hep-2 cell patterns use ANApatterns.org, the official website for the International Consensus on Antinuclear Antibody (DENY) Patterns (ICAP). Performed By: #### A LPHPHN #### [facility] [address] [place] [address] Dr. Li Nagel CERULOPLASMINon 05-05-2022 Ceruloplasmin 27.9 mg/dL Normal 19.0-39.0 [facility] Comment on above: Performed By: #### H EPACUT #### [facility] [address] [place] [address] Dr. Li Nagel HEPATITIS A AB IGMon 023 Hep A Ab, IgM Negative Normal Negative [facility] Comment on above: Performed By: #### I MMUN G #### [facility] [address] [place] [address] Dr. Li Nagel IMMUNOGLOBULIN G INDEX SERUM OR CSFon 05-05-2022 Albumin [Mass/Vol] 4.8 g/dL Normal 3.8-4.8 [facility] Comment on above: Performed By: #### I MMUN G #### [facility] [address] [place] [address] Dr. Li Nagel Albumin, CSF NSPINL Normal [facility] Comment on above: Result Comment: Test not performed. No spinal fluid received. contacted Radha at your facility on 05-05-2022 Performed By: #### I MMUN G #### [facility] [address] [place] [address] Dr. Li Nagel CSF IgG Index UPTCAL Normal [facility] Comment on above: Result Comment: Unab le to calculate result since non-numeric result obtained for component test. Performed By: #### I MMUN G #### [facility] [address] [place] [address] Dr. Li Nagel IgG, Quant, CSF NSPINL Normal [facility] Comment on above: Result Comment: Test not performed. No spinal fluid received. contacted Radha at your facility on 05-05-2022 Performed By: #### I MMUN G #### [facility] [address] [place] [address] Dr. Li Nagel IgG/Alb Ratio, CSF UPTCAL Normal [facility] Comment on above: Result Comment: Unab le to calculate result since non-numeric result obtained for component test. Performed By: #### I MMUN G #### [facility] [address] [place] [address] Dr. Li Nagel Immunoglobulin G, Qn, Serum 971 mg/dL Normal 586-1602 [facility] Comment on above: Performed By: #### I MMUN G #### [facility] [address] [place] [address] Dr. Li Nagel LIVER-KIDNEY MICROSOMAL (LKM ) ABon 05-05-2022 Liver-Kidney Microsomal Ab 1.3 Units Normal 0.0-20.0 [facility] Comment on above: Result Comment: Nega tive 0.0 - 20.0 Equivocal 20.1 - 24.9 Positive >24.9 . LKM type 1 antibodies are detected in patients with autoimmune hepatitis type 2 and in up to 8% of patients with chronic HCV infection. Performed By: #### H EPACUT #### [facility] [address] [address] [address] Li Nagel MITICHONDRIAL (M2) ANTIBODYo n 05-05-2022 Mitochondrial (M2) Antibody <20.0 Normal 0.0-20.0 [facility] Comment on above: Result Comment: Nega tive 0.0 - 20.0 Equivocal 20.1 - 24.9 Positive >24.9 . Mitochondrial (M2) Antibodies are found in 90-96% of patients with primary biliary cirrhosis. Performed By: #### A LPHPHN #### [facility] [address] [place] [address] Dr. Li Nagel SMOOTH MUSCLE ANTIBODYon Actin (Smooth Muscle) Antibody 9 Units Normal 0-19 [facility] Comment on above: Result Comment: Nega tive 0 - 19 Weak positive 20 - 30 Moderate to strong positive >30 . Actin Antibodies are found in 52-85% of patients with autoimmune hepatitis or chronic active hepatitis and in 22% of patients with primary biliary cirrhosis. Performed By: #### A LPHPHN #### [facility] [address] [place] [address] Dr. Li Nagel FERRITINon 05-03-2022 Ferritin [Mass/Vol] 319.0 ng/mL Critically high 6.2-137.0 [facility] Comment on above: Performed By: #### A LPHPHN #### [facility] [address] [place] [address] Dr. Li Nagel PAP ACOG PANEL 2: 30 to 65on 04-28-2022 . . Normal [facility] Comment on above: Result Comment: Perf ormed at: BA Performed By: #### I MMUN G #### [facility] [address] [place] [address] Dr. Li Nagel Age Gdln ACOG Testing 30-65 Normal [facility] Comment on above: Performed By: #### I MMUN G #### [facility] [address] [place] [address] Dr. Li Nagel DIAGNOSIS: Comment Normal [facility] Comment on above: Result Comment: NEGA TIVE FOR INTRAEPITHELIAL LESION OR MALIGNANCY. Performed at: BA Performed By: #### I MMUN G #### [facility] [address] [address] [address] Li Nagel HPV Aptima Negative Normal Negative [facility] Comment on above: Result Comment: This nucleic acid amplification test detects fourteen high-risk HPV types (16,18,31,33,35,39,45,51,52,56,58,59,66,68) without differentiation. Performed at: =G Performed By: #### I MMUN G #### [facility] [address] [address] [address] Li Nagel HPV Genotype Reflex Comment Normal [facility] Comment on above: Result Comment: Crit eria not met, HPV Genotype not performed. Performed at: BA Performed By: #### I MMUN G #### [facility] [address] [place] [address] Dr. Li Nagel Methodology: Comment Normal [facility] Comment on above: Result Comment: This liquid based ThinPrep(R) pap test was screened with the use of an image guided system. Performed at: WB Performed By: #### I MMUN G #### [facility] [address] [place] [address] Dr. Li Nagel Note: Comment Normal [facility] Comment on above: Result Comment: The Pap [...] Performed By: #### I MMUN G #### [facility] [address] [address] [address] Li Nagel Performed by: Comment Normal [facility] Comment on above: Result Comment: Gretta Holly Livestock Nutritionist (ASCP) Performed at: BA Performed By: #### I MMUN G #### [facility] [address] [place] [address] Dr. Li Nagel Specimen adequacy: Comment Normal [facility] Comment on above: Result Comment: Sati sfactory for evaluation. No endocervical component is identified. Performed at: BA Performed By: #### I MMUN G #### [facility] [address] [address] [address] Li Nagel HEPATITIS PANEL, [facility] HBsAg Screen Negative Normal Negative [facility] Comment on above: Performed By: #### H EPACUT #### [facility] [address] [address] [address] Li Nagel HCV AB <0.1 Normal 0.0-0.9 [facility] Comment on above: Performed By: #### H EPACUT #### [facility] [address] [address] [address] Li Nagel Hep A Ab, IgM Negative Normal Negative [facility] Comment on above: Performed By: #### H EPACUT #### [facility] [address] [address] [address] Li Nagel Hep B Core Ab, IgM Negative Normal Negative [facility] Comment on above: Performed By: #### H EPACUT #### [facility] [address] [address] [address] Li Nagel Interpretation: Comment Normal [facility] Comment on above: Result Comment: Nega tive Not infected with HCV, unless recent infection is suspected or other evidence exists to indicate HCV infection. Performed By: #### H EPACUT #### [facility] [address] [address] [address] Li Nagel US PELVIS AND TRANSVAGon [...] LAURIE CRUZ Date: 2021-12-22 09:50 Normal [facility] US ABD RT UPPER QUADRANTon 0 12-10-2021 [facility] US PELVIS AND TRANSVAGon US PELVIS [...] LAURIE CRUZ Date: 2021-10-28 13:01 Normal [facility] VAGINITIS/VAGINOSIS DNA PROB Kwasi 10-21-2021 Sarah species Negative Normal Negative [facility] Comment on above: Performed By: #### I MMUN G #### [facility] [address] [address] [address] Li Nagel Gardnerella vaginalis Negative Normal Negative [facility] Comment on above: Performed By: #### I MMUN G #### [facility] [address] [address] [address] Li Nagel Trichomonas vaginalis Negative Normal Negative [facility] Comment on above: Performed By: #### I MMUN G #### [facility] [address] [place] [address] Dr. Li Nagel CBC AUTO DIFFon 10-20-2021 BASO # 0.0 103/ul Normal 0.0-0.1 [facility] Comment on above: Performed By: #### A LPHPHN #### [facility] [address] [place] [address] Dr. Li Nagel Basophils/100 WBC (Bld) 0.4 % Normal 0.2-2.0 [facility] Comment on above: Performed By: #### A LPHPHN #### [facility] [address] [place] [address] Dr. Li Nagel EO # 0.2 103/ul Normal 0.0-0.7 [facility] Comment on above: Performed By: #### A LPHPHN #### [facility] [address] [place] [address] Dr. Li Nagel Eosinophils/100 WBC (Bld) 2.6 % Normal 0.9-7.0 [facility] Comment on above: Performed By: #### A LPHPHN #### [facility] [address] [place] [address] Dr. Li Nagel Erythrocyte distribution width (RBC) [Ratio] 12.6 % Normal 11.0-15.0 [facility] Comment on above: Performed By: #### A LPHPHN #### [facility] [address] [place] [address] Dr. Li Nagel Hematocrit (Bld) [Volume fraction] 40.0 % Normal 36.0-48.0 [facility] Comment on above: Performed By: #### A LPHPHN #### [facility] [address] [place] [address] Dr. Li Nagel Hemoglobin (Bld) [Mass/Vol] 13.3 g/dL Normal 12.0-16.0 [facility] Comment on above: Performed By: #### A LPHPHN #### [facility] [address] [place] [address] Dr. Li Nagel IG # 0.06 10e3/ul Critically high 0.00-0.03 [facility] Comment on above: Performed By: #### A LPHPHN #### [facility] [address] [place] [address] Dr. Li Nagel IG % 0.9 % Critically high 0.0-0.5 [facility] Comment on above: Performed By: #### A LPHPHN #### [facility] [address] [place] [address] Dr. Li Nagel LYMPH # 2.2 103/ul Normal 1.2-3.8 [facility] Comment on above: Performed By: #### A LPHPHN #### [facility] [address] [place] [address] Dr. Li Nagel Lymphocytes/100 WBC (Bld) 31.0 % Normal 20.5-60.0 [facility] Comment on above: Performed By: #### A LPHPHN #### [facility] [address] [place] [address] Dr. Li Nagel MANUAL DIFF REQ NO Normal [facility] Comment on above: Performed By: #### A LPHPHN #### [facility] [address] [place] [address] Dr. Li Nagel MCH (RBC) [Entitic mass] 31.4 pg Normal 26.7-34.0 [facility] Comment on above: Performed By: #### A LPHPHN #### [facility] [address] [place] [address] Dr. Li Nagel MCHC (RBC) [Mass/Vol] 33.3 g/dL Normal 29.9-35.2 [facility] Comment on above: Performed By: #### A LPHPHN #### [facility] [address] [place] [address] Dr. Li Nagel MCV (RBC) [Entitic vol] 94.3 fL Normal 81.0-99.0 [facility] Comment on above: Performed By: #### A LPHPHN #### [facility] [address] [place] [address] Dr. Li Nagel MONO # 0.5 103/ul Normal 0.3-0.8 [facility] Comment on above: Performed By: #### A LPHPHN #### [facility] [address] [place] [address] Dr. Li Nagel Monocytes/100 WBC (Bld) 6.9 % Normal 1.7-12.0 [facility] Comment on above: Performed By: #### A LPHPHN #### [facility] [address] [place] [address] Dr. Li Nagel NEUT # 4.1 103/ul Normal 1.4-6.5 [facility] Comment on above: Performed By: #### A LPHPHN #### [facility] [address] [place] [address] Dr. Li Nagel Neutrophils/100 WBC (Bld) 58.2 % Normal 43.0-75.0 [facility] Comment on above: Performed By: #### A LPHPHN #### [facility] [address] [place] [address] Dr. Li Nagel Platelet mean volume (Bld) [Entitic vol] 11.0 fL Normal 9.5-13.5 [facility] Comment on above: Performed By: #### A LPHPHN #### [facility] [address] [place] [address] Dr. Li Nagel PLT 211 103/ul Normal 150-450 [facility] Comment on above: Performed By: #### A LPHPHN #### [facility] [address] [place] [address] Dr. Li Nagel RBC 4.24 106/ul Normal 4.20-5.40 [facility] Comment on above: Performed By: #### A LPHPHN #### [facility] [address] [place] [address] Dr. Li Nagel WBC 7.0 103/ul Normal 4.0-11.0 [facility] Comment on above: Performed By: #### A LPHPHN #### [facility] [address] [place] [address] ABD/PELV W CONon [...] MARIA DOLORES MOON Date: 2021-10-20 14:53 Normal [facility] OCC BLD IMMUNO SCREENon 09-23 OCCULT BLOOD Negative Normal NEGATIVE [facility] Comment on above: Performed By: #### O BSCRN #### [facility] [address] [place] [address] Dr. Li Nagel PROF 14(COMP METB)on 022 Albumin [Mass/Vol] 3.7 g/dL Normal 3.4-5.0 [facility] Comment on above: Performed By: #### A LPHPHN #### [facility] [address] [place] [address] Dr. Li Nagel Albumin/Globulin [Mass ratio] 1.2 {ratio} Normal [facility] Comment on above: Performed By: #### A LPHPHN #### [facility] [address] [place] [address] Dr. Li Nagel ALP [Catalytic activity/Vol] 86 U/L Normal 46-116 [facility] Comment on above: Performed By: #### A LPHPHN #### [facility] [address] [place] [address] Dr. Li Nagel ALT [Catalytic activity/Vol] 109 U/L Critically high 14-59 [facility] Comment on above: Performed By: #### A LPHPHN #### [facility] [address] [place] [address] Dr. Li Nagel Anion gap [Moles/Vol] 7.8 mmol/L Normal [facility] Comment on above: Performed By: #### A LPHPHN #### [facility] [address] [place] [address] Dr. Li Nagel AST [Catalytic activity/Vol] 57 U/L Critically high 15-37 [facility] Comment on above: Performed By: #### A LPHPHN #### [facility] [address] [place] [address] Dr. Li Nagel Bilirubin [Mass/Vol] 0.4 mg/dL Normal 0.2-1.0 [facility] Comment on above: Performed By: #### A LPHPHN #### [facility] [address] [place] [address] Dr. Li Nagel Calcium [Mass/Vol] 8.9 mg/dL Normal 8.5-10.1 [facility] Comment on above: Performed By: #### A LPHPHN #### [facility] [address] [place] [address] Dr. Li Nagel Chloride [Moles/Vol] 104 mmol/L Normal 98-107 [facility] Comment on above: Performed By: #### A LPHPHN #### [facility] [address] [place] [address] Dr. Li Nagel CO2 [Moles/Vol] 27.7 mmol/L Normal 21.0-32.0 [facility] Comment on above: Performed By: #### A LPHPHN #### [facility] [address] [place] [address] Dr. Li Nagel Creatinine [Mass/Vol] 0.78 mg/dL Normal 0.55-1.02 [facility] Comment on above: Performed By: #### A LPHPHN #### [facility] [address] [place] [address] Dr. Li Nagel EGFR-AF TUNISIAN >60 Normal >=60 [facility] Comment on above: Performed By: #### A LPHPHN #### [facility] [address] [address] [address] Li Nagel EGFR-NON AF TUNISIAN >60 Normal >=60 [facility] Comment on above: Performed By: #### A LPHPHN #### [facility] [address] [address] [address] Li Nagel Globulin (S) [Mass/Vol] 3.2 g/dL Normal [facility] Comment on above: Performed By: #### A LPHPHN #### [facility] [address] [place] [address] Dr. Li Nagel Glucose [Mass/Vol] 104 mg/dL Normal 74-106 [facility] Comment on above: Performed By: #### A LPHPHN #### [facility] [address] [place] [address] Dr. Li Nagel Potassium [Moles/Vol] 3.5 mmol/L Normal 3.5-5.1 [facility] Comment on above: Performed By: #### A LPHPHN #### [facility] [address] [place] [address] Dr. Li Nagel Protein [Mass/Vol] 6.9 g/dL Normal 6.4-8.2 [facility] Comment on above: Performed By: #### A LPHPHN #### [facility] [address] [place] [address] Dr. Li Nagel Sodium [Moles/Vol] 136 mmol/L Normal 136-145 [facility] Comment on above: Performed By: #### A LPHPHN #### [facility] [address] [place] [address] Dr. Li Nagel Urea nitrogen [Mass/Vol] 10.0 mg/dL Normal 7.0-18.0 [facility] Comment on above: Performed By: #### A LPHPHN #### [facility] [address] [address] [address] Li Nagel Urea nitrogen/Creatinine [Mass ratio] 12.8 mg/mg Normal [facility] Comment on above: Performed By: #### A LPHPHN #### [facility] [id number] Li Nagel XR LSPINE MIN 4 [...] by: LAURIE CRUZ Date: 2021-09-06 15:05 Normal [facility] NM HEPATOBILIARY SCAN W EFon 08-27-2021 NM [...] by: JACKSON ADKINS Date: 2021-08-27 16:05 Normal [facility] Comprehensive Metabolic Pane yair 08-20-2021 Albumin [Mass/Vol] 5.0 g/dL Normal 3.6-5.1 Casi moran [place] [employer] Comment on above: Performed By: #### C MP #### [facility] [address] [place], [place] [id number] Albumin/Globulin [Mass ratio] 2.1 {ratio} Normal 1.0-2.5 [facility] Specialist Comment on above: Performed By: #### C MP #### [facility] [address] [facility] [place] [id number] ALP [Catalytic activity/Vol] 110 U/L Normal 35-119 [facility] Specialist Comment on above: Performed By: #### C MP #### [facility] [address] [facility] [place] [id number] ALT [Catalytic activity/Vol] 71 U/L High 6-33 [facility] Specialist Comment on above: Result Comment: 03/24 Female reference range changed. Performed By: #### C MP #### [facility] [address] [place], [place] [id number] Anion gap [Moles/Vol] 17 mmol/L Normal 12-[address] [facility] Comment on above: Result Comment: Effe ctive 04/29/2019 reference range changed. Performed By: #### C MP #### [facility] [address] [facility] [place] [id number] AST [Catalytic activity/Vol] 69 U/L High 9-34 [facility] Specialist Comment on above: Performed By: #### C MP #### [facility] [address] [place], [place] [id number] BUN/CREA 11 Ratio Normal 6-22 [facility] Specialist Comment on above: Performed By: #### C MP #### [facility] [address] [facility] [place] [id number] Calcium [Mass/Vol] 9.8 mg/dL Normal 8.6-10.2 Casi [facility] [employer] Systems Engineer Comment on above: Performed By: #### C MP #### [facility] [address] [place], [place] [id number] Chloride [Moles/Vol] 99 mmol/L Normal 98-107 [facility] Specialist Comment on above: Performed By: #### C MP #### [facility] [address] [facility] [place] [id number] CO2 [Moles/Vol] 25 mmol/L Normal 20-31 [facility] Specialist Comment on above: Performed By: #### C MP #### [facility] [address] [place], [place] [id number] Creatinine [Mass/Vol] 0.9 mg/dL Normal 0.6-1.4 [facility] Specialist Comment on above: Performed By: #### C MP #### [facility] [address] [place], [place] [id number] eGFRAA 94 mL/min/1.73m2 Normal >60 [facility] Specialist Comment on above: Performed By: #### C MP #### [facility] [address] [place], [place] [id number] eGFRNAA 78 mL/min/1.73m2 Normal >60 [facility] Specialist Comment on above: Performed By: #### C MP #### [facility] [address] [place], [place] [id number] Globulin (S) [Mass/Vol] 2.4 g/dL Normal 1.9-3.7 [facility] Specialist Comment on above: Performed By: #### C MP #### [facility] [address] [place], [place] [id number] Glucose [Mass/Vol] 100 mg/dL High 65-99 [facility] Specialist Comment on above: Result Comment: For FASTING Glucose --- ADA reference ranges: Normal 65-99 mg/dl Prediabetes 100-125 Diabetes >/= 126 Performed By: #### C MP #### [facility] [address] [place], [place] [id number] Potassium [Moles/Vol] 3.8 mmol/L Normal 3.5-5.5 [facility] Specialist Comment on above: Performed By: #### C MP #### [facility] [address] [place], [place] [id number] Protein [Mass/Vol] 7.4 g/dL Normal 6.1-8.1 [facility] Specialist Comment on above: Performed By: #### C MP #### [facility] [address] [place], [place] [id number] Sodium [Moles/Vol] 137 mmol/L Normal 135-146 [facility] Specialist Comment on above: Performed By: #### C MP #### [facility] [address] [place], [place] [id number] TBIL <0.3 Normal [facility] Specialist Comment on above: Performed By: #### C MP #### [facility] [address] [place], [place] [id number] Urea nitrogen [Mass/Vol] 10 mg/dL Normal 7-25 [facility] Specialist Comment on above: Performed By: #### C MP #### [facility] [address] [place], [place] [id number] US SINGLE QUAD RT UPPERon US SINGLE [...] by: JACKSON ADKINS Date: 2021-08-16 08:19 Normal [facility] Complete Blood Count with Au to Diffon 08-06-2021 Basophils (Bld) [#/Vol] 0.03 10*3/uL Normal 0.00-0.20 [facility] [employer] Comment on above: Performed By: #### C MP, CBCAD, LIPD #### [facility] [address] [place], [place] [id number] Basophils/100 WBC (Bld) 0.4 % Normal [facility] [employer] Comment on above: Performed By: #### C MP, CBCAD, LIPD #### [facility] [address] [place], [place] [id number] Eosinophils (Bld) [#/Vol] 0.11 10*3/uL Normal 0.02-0.50 [facility] Specialist Comment on above: Performed By: #### C MP, CBCAD, LIPD #### [facility] [address] [place], [place] [id number] Eosinophils/100 WBC (Bld) 1.4 % Normal [facility] [employer] Comment on above: Performed By: #### C MP, CBCAD, LIPD #### [facility] [address] [place], [place] [id number] Erythrocyte distribution width (RBC) [Ratio] 12.6 % Normal 11.0-15.0 [facility] [employer] Comment on above: Performed By: #### C MP, CBCAD, LIPD #### [facility] [address] [place], [place] [id number] Hematocrit (Bld) [Volume fraction] 44.2 % Normal 35.0-47.0 [facility] [employer] Comment on above: Performed By: #### C MP, CBCAD, LIPD #### [facility] [address] [place], [place] [id number] Hemoglobin (Bld) [Mass/Vol] 14.8 g/dL Normal 11.6-15.5 [facility] [employer] Comment on above: Performed By: #### C MP, CBCAD, LIPD #### [facility] [address] [place], [place] [id number] Lymphocytes (Bld) [#/Vol] 2.2 10*3/uL Normal 0.9-3.9 [facility] Specialist Comment on above: Performed By: #### C MP, CBCAD, LIPD #### [facility] [address] [place], [place] [id number] Lymphocytes/100 WBC (Bld) 28.1 % Normal [facility] [employer] Comment on above: Performed By: #### C MP, CBCAD, LIPD #### [facility] [address] [place], [place] [id number] MCH (RBC) [Entitic mass] 31.2 pg Normal 27.0-33.0 [facility] Specialist Comment on above: Performed By: #### C MP, CBCAD, LIPD #### [facility] [address] [place], [place] [id number] MCHC (RBC) [Mass/Vol] 33.5 g/dL Normal 32.0-36.[address] [facility] Comment on above: Performed By: #### C MP, CBCAD, LIPD #### [facility] [address] [place], [place] [id number] MCV (RBC) [Entitic vol] 93 fL Normal 80-100 [facility] Specialist Comment on above: Performed By: #### C MP, CBCAD, LIPD #### [facility] [address] [place], [place] [id number] Monocytes (Bld) [#/Vol] 0.4 10*3/uL Normal 0.2-0.9 [facility] Specialist Comment on above: Performed By: #### C MP, CBCAD, LIPD #### [facility] [address] [place], [place] [id number] Monocytes/100 WBC (Bld) 4.8 % Normal [facility] Comment on above: Performed By: #### C MP, CBCAD, LIPD #### [facility] [address] [place], [place] [id number] Neutrophils (Bld) [#/Vol] 5.1 10*3/uL Normal 1.5-7.8 [facility] Specialist Comment on above: Performed By: #### C MP, CBCAD, LIPD #### [facility] [address] [place], [place] [id number] Neutrophils/100 WBC (Bld) 64.3 % Normal [facility] Specialist Comment on above: Performed By: #### C MP, CBCAD, LIPD #### [facility] [address] [place], [place] [id number] Platelet mean volume (Bld) [Entitic vol] 11.00 fL Normal 7.50-12.50 [facility] Comment on above: Performed By: #### C MP, CBCAD, LIPD #### [facility] [address] [place], [place] [id number] Platelets (Bld) [#/Vol] 296 10*3/uL Normal 140-400 [facility] Comment on above: Performed By: #### C MP, CBCAD, LIPD #### [facility] [address] [place], [place] [id number] RBC (Bld) [#/Vol] 4.74 10*6/uL Normal 3.90-5.[address] [facility] Comment on above: Performed By: #### C MP, CBCAD, LIPD #### [facility] [address] [place], [place] [id number] RDW-SD 43.4 fL Normal 37.0-50.0 [facility] Specialist Comment on above: Performed By: #### C MP, CBCAD, LIPD #### [facility] [address] [place], [place] [id number] WBC (Bld) [#/Vol] 8.0 10*3/uL Normal 3.8-11.0 [facility] Specialist Comment on above: Performed By: #### C MP, CBCAD, LIPD #### [facility] [address] [place], [place] [id number] Comprehensive Metabolic Pane yair 08-06-2021 Albumin [Mass/Vol] 5.2 g/dL High 3.6-5.1 [facility] Specialist Comment on above: Performed By: #### C MP, CBCAD, LIPD #### [facility] [address] [place], [place] [id number] Albumin/Globulin [Mass ratio] 2.1 {ratio} Normal 1.0-2.5 [facility] Specialist Comment on above: Performed By: #### C MP, CBCAD, LIPD #### [facility] [address] [place], [place] [id number] ALP [Catalytic activity/Vol] 115 U/L Normal 35-119 [facility] Specialist Comment on above: Performed By: #### C MP, CBCAD, LIPD #### [facility] [address] [place], [place] [id number] ALT [Catalytic activity/Vol] 101 U/L High 6-33 [facility] Specialist Comment on above: Result Comment: 03/24 Female reference range changed. Performed By: #### C MP, CBCAD, LIPD #### [facility] [address] [place], [place] [id number] Anion gap [Moles/Vol] 20 mmol/L Normal 12-[address] [facility] Comment on above: Result Comment: Effignacio ctive 04/29/2019 reference range changed. Performed By: #### C MP, CBCAD, LIPD #### [facility] [address] [place], [place] [id number] AST [Catalytic activity/Vol] 96 U/L High 9-34 [facility] Comment on above: Performed By: #### C MP, CBCAD, LIPD #### [facility] [address] [place], [place] [id number] BUN/CREA 9 Ratio Normal 6-22 [facility] Comment on above: Performed By: #### C MP, CBCAD, LIPD #### [facility] [address] [place], [place] [id number] Calcium [Mass/Vol] 9.9 mg/dL Normal 8.6-10.2 [facility] Comment on above: Performed By: #### C MP, CBCAD, LIPD #### [facility] [address] [place], [place] [id number] Chloride [Moles/Vol] 106 mmol/L Normal 98-107 [facility] Comment on above: Performed By: #### C MP, CBCAD, LIPD #### [facility] [address] [place], [place] [id number] CO2 [Moles/Vol] 21 mmol/L Normal 20-31 [facility] Comment on above: Performed By: #### C MP, CBCAD, LIPD #### [facility] [address] [place], [place] [id number] Creatinine [Mass/Vol] 0.9 mg/dL Normal 0.6-1.[address] [facility] Comment on above: Performed By: #### C MP, CBCAD, LIPD #### [facility] [address] [place], [place] [id number] eGFRAA 90 mL/min/1.73m2 Normal >60 [facility] Specialist Comment on above: Performed By: #### C MP, CBCAD, LIPD #### [facility] [address] [place], [place] [id number] eGFRNAA 74 mL/min/1.73m2 Normal >60 [facility] Specialist Comment on above: Performed By: #### C MP, CBCAD, LIPD #### [facility] [address] [facility] [place] [id number] Globulin (S) [Mass/Vol] 2.5 g/dL Normal 1.9-3.7 [facility] Specialist Comment on above: Performed By: #### C MP, CBCAD, LIPD #### [facility] [address] [place], [place] [id number] Glucose [Mass/Vol] 127 mg/dL High 65-99 Casi moran [employer] Comment on above: Result Comment: For FASTING Glucose --- ADA reference ranges: Normal 65-99 mg/dl Prediabetes 100-125 Diabetes >/= 126 Performed By: #### C MP, CBCAD, LIPD #### [facility] [address] [place], [place] [id number] Potassium [Moles/Vol] 4.2 mmol/L Normal 3.5-5.[address] [facility] Comment on above: Performed By: #### C MP, CBCAD, LIPD #### [facility] [address] [place], [place] [id number] Protein [Mass/Vol] 7.7 g/dL Normal 6.1-8.1 Casi moran [employer] Comment on above: Performed By: #### C MP, CBCAD, LIPD #### [facility] [address] [facility] [place] [id number] Sodium [Moles/Vol] 143 mmol/L Normal 135-146 Casi moran [employer] Comment on above: Performed By: #### C MP, CBCAD, LIPD #### [facility] [address] [place], [place] [id number] TBIL <0.3 Normal [facility] Specialist Comment on above: Performed By: #### C MP, CBCAD, LIPD #### [facility] [address] [place], [place] [id number] Urea nitrogen [Mass/Vol] 8 mg/dL Normal 7-25 [facility] [employer] [facility] Comment on above: Performed By: #### C MP, CBCAD, LIPD #### [facility] [address] [place], [place] [id number] Hemoglobin A1Con 08-06-2021 EAG 99.67 Normal [facility] Specialist Comment on above: Performed By: #### A 1C #### [facility] [address] [place], [place] [id number] HbA1c (Bld) [Mass fraction] 5.1 % Normal 4.0-6.0 [facility] Specialist Comment on above: Performed By: #### A 1C #### [facility] [address] [place], [place] [id number] Lipid Panelon 08-06-2021 Cholesterol [Mass/Vol] 190 mg/dL Normal 125-200 [facility] [employer] Comment on above: Result Comment: Low risk < 200mg/dL Borderline risk 201-239 mg/dl High risk > or equal to 240 Performed By: #### C MP, CBCAD, LIPD #### [facility] [address] [place], [place] [id number] Cholesterol in HDL [Mass/Vol] 64 mg/dL Normal >40 [facility] [employer] Comment on above: Result Comment: High Cardiovascular Risk HDL <40 mg/dL Low Cardiovascular Risk HDL > or equal to 60 mg/dl Performed By: #### C MP, CBCAD, LIPD #### [facility] [address] [place], [place] [id number] Cholesterol in LDL [Mass/Vol] 107 mg/dL Normal [facility] Specialist Comment on above: Result Comment: LDL ATP III CLASSIFICATION LDL less than 100 mg/dl Optimal LDL 100-129 mg/dl Near or above optimal LDL 130-159 Borderline high LDL 160-189 High LDL greater than 189 mg/dl Very High Performed By: #### C MP, CBCAD, LIPD #### [facility] [address] [place], [place] [id number] Cholesterol in VLDL [Mass/Vol] 19 mg/dL Normal [facility] [employer] Comment on above: Performed By: #### C MP, CBCAD, LIPD #### [facility] [address] [place], [place] [id number] Cholesterol.total/Cho lesterol in HDL [Mass ratio] 3 {ratio} Normal [facility] [employer] Comment on above: Performed By: #### C NORBERTO, CBCAD, LIPD #### [facility] [address] [place], [place] [id number] Triglyceride [Mass/Vol] 95 mg/dL Normal 30-150 [facility] [employer] [facility] Comment on above: Result Comment: TRIG ATPIII CLASSIFICATIONS TRIG less than 150 mg/dl Normal TRIG 150-199 mg/dl Borderline High TRIG 200-500 mg/dl High TRIG greather than 500 mg/dl Very High Performed By: #### C NORBERTO, CBCAD, LIPD #### [facility] [address] [place], [place] [id number] Q - CULTURE,URINE,ROUTINEon 06-04-2021 CULTURE, URINE, ROUTINE SEE NOTE Normal [facility] [employer] [facility] Comment on above: Order Comment: [facility] Testing performed at: [facility], [facility], [address] [place] [address], [address] [place] [address], [id number], Grades 1 Through 5 Teacher: Tim Dotson MD [facility] Collection Date/Time: [facility] Results Received Date/Time: [facility] Reported Date/Time: Result Comment: CULT URE, URINE, ROUTINE Micro Number: [id number] Test Status: Final Specimen Source: Not given Specimen Quality: Adequate Result: Mixed genital marie isolated. These superficial bacteria are not indicative of a urinary tract infection. No further organism identification is warranted on this specimen. If clinically indicated, recollect clean-catch, mid-stream urine and transfer immediately to Urine Culture Transport Tube. Performed By: #### [id number] #### [facility] [address] [place] [id number] MRI LUMBAR SPINE WO CONTRAST on 11-06-2018 [...] Naren Lagos MD 11/06/18 Final result Normal [facility] Vital Signs Date Time Vital Sign Value Performing Clinician Facility 02-06-2024 09:14-0400 Body height 157.5 cm Giovani Hagen MD Work Phone: [facility] 02-06-2024 09:14-0400 Body mass index (BMI) [Ratio] 34.93 kg/m2 Giovani Hagen MD Work Phone: [facility] 02-06-2024 09:14-0400 Body weight 86.64 kg Giovani Hagen MD Work Phone: [facility] 02-06-2024 09:14-0400 Diastolic blood pressure 88 mm[Hg] Giovani Hagen MD Work Phone: [facility] 02-06-2024 09:14-0400 Heart rate 106 /min Giovani Hagen MD Work Phone: [facility] 02-06-2024 09:14-0400 SaO2% (BldA) [Mass fraction] 99 % Giovani Hagen MD Work Phone: [facility] 02-06-2024 09:14-0400 Systolic blood pressure 130 mm[Hg] Giovani Hagen MD Work Phone: [facility] 12-28-2023 15:17-0400 Blood Pressure Location BHAVESH DEJESUS [facility] 12-28-2023 15:17-0400 Diastolic blood pressure 100 mm[Hg] BHAVESH DEJESUS [facility] 12-28-2023 15:17-0400 Heart rate 101 /min BHAVESHCONSTANTINO DEJESUS [facility] 12-28-2023 15:17-0400 Respiratory rate 18 /min BHAVESH DEJESUS [facility] 12-28-2023 15:17-0400 Systolic blood pressure 146 mm[Hg] BHAVESH DEJESUS [facility] 12-19-2023 15:01-0400 Body height 157.5 cm Solo Mora MD Work Phone: [facility] 12-19-2023 15:01-0400 Body mass index (BMI) [Ratio] 34.39 kg/m2 Solo Mora MD Work Phone: [facility] 12-19-2023 15:01-0400 Body weight 85.28 kg Solo Mora MD Work Phone: [facility] 12-19-2023 15:01-0400 Diastolic blood pressure 91 mm[Hg] Solo Mora MD Work Phone: [facility] 12-19-2023 15:01-0400 Heart rate 94 /min Solo Mora MD Work Phone: [facility] 12-19-2023 15:01-0400 Systolic blood pressure 127 mm[Hg] Solo Mora MD Work Phone: [facility] 11-02-2022 13:10-0400 Body height 157.5 cm Samuel Freeman MD Work Phone: [facility] 11-02-2022 13:10-0400 Body weight 71 kg Samuel Freeman MD Work Phone: [facility] 11-02-2022 13:10-0400 Diastolic blood pressure 97 mm[Hg] Samuel Freeman MD Work Phone: [facility] 11-02-2022 13:10-0400 Heart rate 100 /min Samuel Freeman MD Work Phone: [facility] 11-02-2022 13:10-0400 Systolic blood pressure 141 mm[Hg] Samuel Freeman MD Work Phone: [facility] 08-31-2022 15:30-0400 Diastolic blood pressure 91 mm[Hg] Carol Winn MD Work Phone: [facility] 08-31-2022 15:30-0400 Heart rate 99 /min Carol Winn MD Work Phone: [facility] 08-31-2022 15:30-0400 Respiratory rate 24 /min Carol Winn MD Work Phone: [facility] 08-31-2022 15:30-0400 SaO2% (BldA) [Mass fraction] 97 % Carol Winn MD Work Phone: [facility] 08-31-2022 15:30-0400 Systolic blood pressure 140 mm[Hg] Carol Winn MD Work Phone: [facility] 08-31-2022 14:10-0400 Body height 157.5 cm Carol Winn MD Work Phone: [facility] 08-31-2022 14:10-0400 Body mass index (BMI) [Ratio] 33.84 kg/m2 Carol Winn MD Work Phone: [facility] 08-31-2022 14:10-0400 Body weight 83.92 kg Carol Winn MD Work Phone: [facility] 06-30-2022 12:40-0500 Diastolic blood pressure 85 mm[Hg] Carol Winn MD Work Phone: [facility] 06-30-2022 12:40-0500 Heart rate 70 /min Carol Winn MD Work Phone: [facility] 06-30-2022 12:40-0500 Respiratory rate 12 /min Carol Winn MD Work Phone: [facility] 06-30-2022 12:40-0500 SaO2% (BldA) [Mass fraction] 100 % Carol Winn MD Work Phone: [facility] 06-30-2022 12:40-0500 Systolic blood pressure 120 mm[Hg] Carol Winn MD Work Phone: [facility] 06-30-2022 11:18-0500 Body height 157.5 cm Carol Winn MD Work Phone: [facility] 06-30-2022 11:18-0500 Body mass index (BMI) [Ratio] 33.84 kg/m2 Carol Winn MD Work Phone: [facility] 06-30-2022 11:18-0500 Body weight 83.92 kg Carol Winn MD Work Phone: [facility] 05-27-2022 11:29-0500 Body weight 85.73 kg Carol Winn MD Work Phone: [facility] 05-27-2022 11:29-0500 Diastolic blood pressure 92 mm[Hg] Carol Winn MD Work Phone: [facility] 05-27-2022 11:29-0500 Heart rate 102 /min Carol Winn MD Work Phone: [facility] 05-27-2022 11:29-0500 Systolic blood pressure 145 mm[Hg] Carol Winn MD Work Phone: [facility] 05-03-2022 15:30-0500 Body height 158.75 cm Imad Asamatt Other [employer] Other 05-03-2022 15:30-0500 Body mass index (BMI) [Ratio] 34.55 kg/m2 Imad Asaad Other [employer] Other 05-03-2022 15:30-0500 Body weight 87.09 kg Imad Asaad Other [employer] Other 05-03-2022 15:30-0500 Diastolic blood pressure 91 mm[Hg] Imad Asaad Other [employer] Other 05-03-2022 15:30-0500 Systolic blood pressure 130 mm[Hg] Imad Asaad Other [employer] Other 05-03-2022 14:47-0500 Body weight 0 kg MD Giovani Hagen Work Phone: [facility] Encounters Encounter Date Encounter Type Care Provider Facility Start: 12-30-2024 ambulatory Madhuri MISHRA Facility:[facility] Start: 02-29-2024 End: 02-29-2024 ambulatory Kenya Odellbley [employer] [facility] Comment on above: Cervical radiculopathy (Primary Dx) Start: 02-29-2024 End: 02-29-2024 Bamboo flowsheet Kenya Kelbley [employer] [facility] Start: 02-29-2024 End: 02-29-2024 Bamboo flowsheet Kenya Kelbley [employer] [facility] Start: 02-27-2024 End: 02-27-2024 ambulatory Kenya Kelbley [employer] [facility] Comment on above: Cervical radiculopathy (Primary Dx) Start: 02-27-2024 End: 02-27-2024 Bamboo flowsheet Kenya Kelbley [employer] [facility] Start: 02-27-2024 End: 02-27-2024 Bamboo flowsheet Kenya Kelbley [employer] [facility] Start: 02-20-2024 End: 02-20-2024 Refill Audrey Chris CARDENAS [facility] Comment on above: Attention deficit hyperactivity disorder (ADHD), predominantly inattentive type (CMS/HCC) Start: 02-14-2024 End: 02-15-2024 ambulatory Arun Brink [employer] [facility] Comment on above: Cervical radiculopathy (Primary Dx) Start: 02-14-2024 End: 02-14-2024 Bamboo flowsheet Arun Brink [employer] [facility] Start: 02-14-2024 End: 02-14-2024 Bamboo flowsheet Arun Brink [employer] [facility] Start: 02-12-2024 End: 02-12-2024 ambulatory Jumana Burgess PT Work Phone: [facility] Comment on above: Cervical radiculopathy (Primary Dx) Start: 02-12-2024 End: 02-12-2024 Bamboo flowsheet Jumana Burgess PT Work Phone: [facility] Start: 02-12-2024 End: 02-12-2024 Bamboo flowsheet Jumana Burgess PT Work Phone: [facility] Start: 02-07-2024 End: 02-07-2024 ambulatory Arun Brink [employer] [facility] Comment on above: Cervical radiculopathy (Primary Dx) Start: 02-07-2024 End: 02-07-2024 Bamboo flowsheet Arun Brink [employer] [facility] Start: 02-07-2024 End: 02-07-2024 Bamboo flowsheet Arun Brink [employer] [facility] Start: 02-06-2024 End: 02-06-2024 Office outpatient visit 25 minutes Giovani Hagen MD Work Phone: [facility] Comment on above: Localized edema (Primary Dx); Obesity (BMI 35.0-39.9 without comorbidity); Injury of right ankle, subsequent encounter; Anxiety; Bipolar disorder, in partial remission, most recent episode manic (CMS/HCC) Start: 02-06-2024 End: 02-06-2024 ambulatory RUGEN M HIEU Not Available Start: 02-05-2024 End: 02-05-2024 Bamboo flowsheet Jumana Burgess PT Work Phone: [facility] Start: 02-05-2024 End: 02-05-2024 Bamboo flowsheet Jumana Burgess PT Work Phone: [facility] Start: 02-05-2024 End: 02-05-2024 ambulatory Jumana Burgess PT Work Phone: [facility] Comment on above: Cervical radiculopathy (Primary Dx) Start: 01-29-2024 End: 01-29-2024 Telephone encounter Jumana Burgess PT Work Phone: [facility] Comment on above: PT Initial Eval (Tried to contact to [facility] PT Eval for cervical radiculopathy; but had to lm requesting call back.); Call Back (She contacted and we scheduled PT Eval 02/04 w/ Jumana Burgess, PT.) Start: 01-22-2024 End: 01-22-2024 ambulatory DARWIN BURKSZIO Not Available Start: 01-09-2024 End: 01-09-2024 ambulatory RUGEN M HIEU Not Available Start: 12-28-2023 End: 12-28-2023 Patient encounter procedure BHAVESH DEJESUS [facility] Start: 12-28-2023 End: 12-29-2023 ambulatory BHAVESH DEJESUS Facility:[facility] Comment on above: Zio Start: 12-26-2023 End: 12-26-2023 ambulatory RUGEN M HIEU Not Available Start: 12-19-2023 End: 12-21-2023 Orders Only Solo Mora MD Work Phone: Cardiology Comment on above: Syncope and collapse (Primary Dx) Event (ZIO PATCH) Syncope, unspecified syncope type (Primary Dx) Start: 12-18-2023 End: 02-01-2024 Telephone encounter [facility] Comment on above: Lab results Start: 12-04-2023 End: 12-04-2023 ambulatory RUGEN M HIEU Not Available Start: 12-04-2023 Patient encounter status Jumana Burgess PT Work Phone: [facility] Start: 11-02-2023 Orders Only Solo Mora MD [...] Available Start: 04-06-2023 End: 04-06-2023 ambulatory AKUA HERNANDEZHUSSEINValorie Not Available Start: 03-22-2023 End: 03-24-2023 Evaluation and management of inpatient [facility] Start: 03-20-2023 ambulatory Carol Winn [...] Start: 10-26-2022 End: 10-26-2022 ambulatory Imad Asaad Facility:[facility] Start: 10-26-2022 End: 10-26-2022 ambulatory MD Giovani Hagen Work Phone: [facility] Work Phone: Start: 10-26-2022 End: 10-26-2022 Patient encounter procedure MD Giovani Hagen Work Phone: [facility] [place] Work Phone: Start: 10-18-2022 ambulatory Maria Dolores Corey DO Work Phone: Gastroenterology Start: 10-18-2022 Telephone encounter Maria Dolores Corey DO Work Phone: Gastroenterology Comment on above: Medication Preauthorization ([employer]) Results Start: 10-17-2022 End: 10-18-2022 ambulatory MARIA DOLORES S AJAY Facility:[facility] Start: 10-17-2022 End: 10-17-2022 Patient encounter procedure [facility] Work Phone: Gastroenterology Comment on above: Gastroparesis (Primary Dx) Start: 09-12-2022 ambulatory CAROL WINN Facility:[facility] Start: 09-12-2022 End: 09-12-2022 Subsequent hospital visit by physician [facility] Work Phone: [facility] Molecular Comment on above: Nausea [R11.0] Start: 08-31-2022 End: 08-31-2022 Subsequent hospital visit by physician Carol Winn MD Work Phone: Ambulatory Surgery Comment on above: PUD (peptic ulcer disease) [K27.9] Start: 08-24-2022 Telephone encounter Nurse [facility] Work Phone: Gastroenterology Comment on above: Appointment Start: 07-08-2022 End: 07-08-[address] MADHURI MISHRA . Facility:[facility] Start: 07-06-2022 End: 07-07-[address] MADHURI MISHRA . Facility:[facility] Start: 07-05-2022 End: 07-05-2022 Patient encounter procedure Madhuri MISHRA [facility] Start: 07-04-2022 Orders Only Carol Winn MD Work Phone: Gastroenterology Start: 06-30-2022 End: 06-30-2022 Subsequent hospital visit by physician Carol Winn MD Work Phone: Ambulatory Surgery Comment on above: Bilious vomiting with nausea [R11.14] Start: 06-29-2022 End: 06-30-[address] MADHURI MISHRA . Facility: Start: 06-29-2022 End: 06-29-2022 Lab Drop off Madhuri MISHRA [facility] Start: 06-23-2022 ambulatory Carol Winn MD Work Phone: Gastroenterology Comment on above: EGD instructions Start: 06-23-2022 E-mail encounter from caregiver Carol Winn MD Work Phone: [facility] Start: 06-16-2022 ambulatory [facility] Provider Gastroenterology Comment on above: Question regarding US ABD RT UPPER QUADR ANT Start: 06-15-2022 ambulatory CAROL WINN Facility:[facility] Start: 06-15-2022 End: 06-15-2022 Subsequent hospital visit by physician Kye [facility] Work Phone: [facility] Radiology Ultrasound Comment on above: Liver lesion [K76.9] Start: 06-14-2022 Orders Only Carol Winn MD Work Phone: Ambulatory Surgery Comment on above: Liver lesion (Primary Dx) Results Start: 06-10-2022 ambulatory Diamond Pycraft RT(R) Radiology Ct Scan Comment on above: Radiology CT Start: 06-10-2022 Patient encounter procedure Diamond Pycraft RT(R) [facility] Start: 06-10-2022 End: 06-10-2022 Subsequent hospital visit by physician Ct Prep [facility] Radiology Ct Scan Comment on above: Bilious vomiting with nausea [R11.14] Start: 05-27-2022 ambulatory CAROL WINN Facility:[facility] Start: 05-27-2022 End: 05-27-2022 Subsequent hospital visit by physician [facility] Work Phone: [facility] Radiology General Comment on above: SOB (shortness of breath) [R06.02] Start: 05-27-2022 End: 05-27-2022 Patient encounter procedure Carol Winn MD Work Phone: Gastroenterology Comment on above: Fatty liver (Primary Dx); Bilious vomiting with nausea; Right sided abdominal pain; Nausea; History of diverticulitis; SOB (shortness of breath) Start: 05-13-2022 End: 05-13-2022 ambulatory Imad Asaad Facility:[facility] Start: 05-13-2022 End: 05-13-2022 ambulatory MD Giovani Hagen Work Phone: [facility] Work Phone: Start: 05-13-2022 End: 05-13-2022 Patient encounter procedure MD Giovani Hagen Work Phone: [facility] Work Phone: Start: 05-03-2022 End: 05-04-2022 ambulatory IMAD ASAAD [place] [email or web address] Other Start: 05-03-2022 Office consultation new/estab patient 60 min Imad Asaad [facility] Gastroenterology Start: 04-20-2022 End: 04-20-[address] AURORA IRBY . Facility:[facility] Start: 04-06-2022 End: 04-07-[address] GIOVANI HAGEN Facility:[facility] Start: 12-21-2021 End: 12-22-[address] AURORA IRBY . Facility:[facility] Start: 12-10-2021 End: 12-10-2021 Subsequent hospital visit by physician [facility] Ultrasound Comment on above: Elevated LFTs [R79.89] Start: 10-27-2021 End: 10-28-[address] AURORA IRBY . Facility:[facility] Start: 10-20-2021 End: 10-20-2021 ambulatory AYLEEN POPPY . Facility:[facility] Start: 10-19-2021 End: 10-19-[address] AURORA IRBY . Facility:[facility] Start: 09-06-2021 End: 09-07-[address] GIOVANI HAGEN Facility:[facility] Start: 08-27-2021 End: 08-28-[address] GIOVANI HAGEN Facility:[facility] Start: 08-14-2021 End: 08-15-[address] GIOVANI HAGEN Facility:[facility] Start: 11-06-2018 End: 11-09-2018 Patient encounter procedure [facility] Procedures Date Procedure Procedure Detail Performing Clinician Start: 04-18-2023 History of cholecystectomy History of cholecystectomy Jumana Burgess PT Work Phone: Start: 10-26-2022 Ultrasonography of liver MD Giovani Hagen Work Phone: Start: 09-23-2022 H/O: hysterectomy History of hysterectomy Jumana Burgess PT Work Phone: Start: 09-12-2022 Gastric emptying imaging study Carol brink MD Work Phone: Start: 08-31-2022 Level iv surg pathology gross&microscopic exam Carol Winn MD Work Phone: Start: 08-31-2022 Esophagogastroduodenoscopy transoral diagnostic Carol Winn MD Work Phone: Start: 06-30-2022 Level iv surg pathology gross&microscopic exam Carol Winn MD Work Phone: Start: 06-30-2022 Esophagogastroduodenoscopy transoral diagnostic Carol Winn MD Work Phone: Start: 06-15-2022 Us abdominal real time w/image limited Carol Winn MD Work Phone: Start: 06-10-2022 Ct abdomen & pelvis w/o contrast material Carol Winn MD Work Phone: Start: 05-27-2022 Radiologic exam chest 2 views Carol mcnamara MD Work Phone: Start: 05-13-2022 Ultrasound elastography of liver MD Jet Hagen Work Phone: Start: 12-10-2021 Us abdominal real time w/image limited Carol Winn MD Work Phone: Start: 05-01-2019 Cystourethroscopy with dilation of urethral stricture Madhuri MISHRA Start: 11-07-2018 RADIOLOGY REPORT SHIVANI MONTEIRO Start: 11-06-2018 Mri spinal canal lumbar w/o contrast material SHIVANI MONTEIRO Start: 09-18-2018 Facet Medial Branch Block 1 Madhuri MOORE Comment on above: Bilateral T5-T8 -10% relief x 2 hours. Start: 07-31-2018 Injection of sacroiliac joint using fluoroscopic guidance Madhuri MISHRA Comment on above: right 40% relief Start: 07-02-2018 Injection of sacroiliac joint using fluoroscopic guidance Madhuri MISHRA Comment on above: right 50% relief to present section Madhuri SERRANO Cholecystectomy BHAVESH FLORES FELIPA Hysterectomy Madhuri MISHRA Plan of Treatment Date Care Activity Detail Author Start: 12-23-2024 Influenza vaccination Influenza Vaccine (#1) [facility] Comment on above: Postponed from 12/24/2023 (Other Medical Reasons) Start: 03-20-2024 End: 03-20-2024 Patient encounter procedure 03/20/2024 4:00 PM EST Office Visit [facility] [address] [address] Darwin Starr DO [address] [place] [address] [facility] Start: 03-13-2024 End: 03-13-2024 ambulatory 03/13/2024 4:30 PM EST Treatment [facility] [address] [place] [address] Jumana Burgess, PT [address] [place] [address] [facility] Start: 03-11-2024 End: 03-11-2024 ambulatory 03/11/2024 4:00 PM EST Treatment [facility] [address] [place] [address] Arun Hernadez, [employer] [facility] Start: 03-06-2024 End: 03-06-2024 ambulatory [facility] Start: 03-04-2024 End: 03-04-2024 ambulatory 03/04/2024 9:00 AM EST Treatment [facility] [address] [facility] [address] [place] [address] Arun Hernadez, [employer] [facility] Start: 02-29-2024 End: 02-29-2024 ambulatory [facility] Comment on above: Arrived Start: 02-27-2024 End: 02-27-2024 ambulatory [facility] Comment on above: Arrived Start: 02-21-2024 End: 02-21-2024 ambulatory 02/21/2024 4:30 PM EDT Treatment [facility] [address] [facility] [address] [place] [address] Kenya Sanchez, [employer] [facility] Start: 02-14-2024 End: 02-14-2024 ambulatory [facility] Start: 02-13-2024 End: 02-13-2024 Patient encounter procedure Cardiology Comment on above: Dx: Syncope, unspecified syncope type [R 55] Start: 02-13-2024 End: 02-13-2024 ambulatory 02/13/2024 2:00 PM EDT Results Only Cardiology [address] [place] [address] Dx: Syncope, unspecified syncope type [R55] Cardiology Comment on above: Dx: Syncope, unspecified syncope type [R 55] Start: 02-12-2024 End: 02-12-2024 ambulatory [facility] Comment on above: Arrived Start: 02-07-2024 End: 02-07-2024 ambulatory [facility] Comment on above: Arrived Start: 02-05-2024 End: 02-05-2024 ambulatory [facility] Comment on above: Cervical radiculopathy Start: 12-24-2023 Covid-19 Vaccine () Covid-19 Vaccine () [facility] Start: 12-24-2023 Covid-19 Vaccine () Covid-19 Vaccine () [facility] Start: 12-24-2023 Influenza vaccination [facility] Start: 12-19-2023 End: 12-19-2023 ambulatory 12/19/2023 2:15 PM EDT Results Only Cardiology [address] [place] [address] Exertional Syncope. Referring: Dr. Shilo Dillon Cardiology Comment on above: Exertional Syncope. Referring: Dr. Shilo Dillon Start: 12-19-2023 End: 12-19-2023 Patient encounter procedure Cardiology Comment on above: Exertional Syncope. Referring: Dr. Shilo Dillon Start: 04-24-2023 Behavioral Health Screening Behavioral Health Screening [facility] Start: 12-23-2022 Covid-19 Vaccine () Covid-19 Vaccine () [facility] Start: 12-23-2022 Influenza vaccination [facility] Start: 05-13-2022 [facility] Start: 04-24-2022 DEPRESSION ASSESSMENT DEPRESSION ASSESSMENT [facility] Start: 12-28-2021 COVID-19 VACCINE (4 - Booster for Pfizer series) COVID-19 VACCINE (4 - Booster for Pfizer series) [facility] Start: 12-28-2021 COVID-19 VACCINE (4 - Pfizer series) COVID-19 VACCINE (4 - Pfizer series) [facility] Start: 12-23-2021 Influenza vaccination INFLUENZA (#1) [facility] Start: 02-06-2020 Urine microalbumin profile DTaP,Tdap,Td Vaccine (6 - Td or Tdap) [facility] Start: 2018 HPV TESTING HPV TESTING [facility] Start: 2009 PAP TESTING PAP TESTING [facility] Start: 2009 Screening for malignant neoplasm of cervix Cervical Cancer Screening [facility] Start: 09-29-2007 Urine microalbumin profile DTAP,TDAP,TD (1 - Tdap) [facility] Start: 11-30-2006 HPV Vaccine (2 - 3-dose series) HPV Vaccine (2 - 3-dose series) [facility] Start: 2006 Anxiety Screening Anxiety Screening [facility] Start: 2006 Depression Screening Depression Screening [facility] Start: 2006 HEPATITIS C SCREENING HEPATITIS C SCREENING [facility] Start: 2006 Hepatitis C screening Hepatitis C Screening [facility] Start: 2006 HIV SCREENING HIV SCREENING [facility] Start: 2006 HIV screening HIV Screening [facility] Start: 1988 HEPATITIS B (1 of 3 - 3-dose series) HEPATITIS B (1 of 3 - 3-dose series) [facility] Actin smooth muscle IgG Ab [Units/volume] in Serum [facility] Alpha 1 antitrypsin [Mass/volume] in Serum or Plasma [facility] Alpha 1 antitrypsin phenotyping [Identifier] in Serum or Plasma by Immunofixation [facility] Ceruloplasmin [Mass/ volume] in Serum or Plasma [facility] End: 06-26-2023 Ct abdomen & pelvis w/o contrast material CT ABD/PEL WO [facility] Radiology Routine Bilious vomiting with nausea Right sided abdominal pain Nausea 1 Occurrences starting 05/27/2022 until 06/26/2023 [facility] Work Phone: Comment on above: 1 Occurrences starting 05/27/2022 until 06/26/2023 End: 11-01-2024 ECG COMPLETE ECG COMPLETE ECG Routine Gastroparesis 1 Occurrences starting 11/02/2023 until 11/01/2024 [facility] Work Phone: Comment on above: 1 Occurrences starting 11/02/2023 until 11/01/2024 End: 12-18-2024 ECG COMPLETE ECG COMPLETE ECG Routine Syncope and collapse 1 Occurrences starting 12/19/2023 until 12/18/2024 [facility] Work Phone: Comment on above: 1 Occurrences starting 12/19/2023 until 12/18/2024 End: 05-27-2023 EGD DIAGNOSTIC EGD DIAGNOSTIC Endoscopy Routine Bilious vomiting with nausea Right sided abdominal pain 1 Occurrences starting 05/27/2022 until 05/27/2023 [facility] Work Phone: Comment on above: 1 Occurrences starting 05/27/2022 until 05/27/2023 Electrogastrography dx transcutaneous EGG (ELECTROGASTROGRAPHY) Procedures Routine Gastroparesis Ordered: 09/14/2022 [facility] Work Phone: Comment on above: Ordered: 09/14/2022 Hepatitis A virus Ab [Presence] in Serum by Immunoassay [facility] HFE gene mutations f ound [Identifier] in Blood or Tissue by Molecular genetics method Nominal [facility] Homogenous nuclear A b pattern [Titer] in Serum [facility] IgG [Mass/volume] in Serum or Plasma [facility] Lipoprotein a [Moles /volume] in Serum or Plasma [facility] Mitochondria M2 IgG Ab [Units/volume] in Serum [facility] Nuclear Ab [Titer] in Serum [facility] OUTSIDE VENDOR CARDI AC OUTPATIENT EXTENDED RHYTHM RECORDING (WITHOUT TELEMETRY) OUTSIDE VENDOR CARDIAC OUTPATIENT EXTENDED RHYTHM RECORDING (WITHOUT TELEMETRY) Holter Routine Syncope, unspecified syncope type Ordered: 12/19/2023 [facility] Comment on above: Ordered: 12/19/2023 End: 12-18-2024 STRESS ECHO TREADMILL STRESS ECHO TREADMILL Cardiology Routine Syncope, unspecified syncope type 1 Occurrences starting 12/19/2023 until 12/18/2024 [facility] Work Phone: Comment on above: 1 Occurrences starting 12/19/2023 until 12/18/2024 End: 07-14-2023 Us abdominal real time w/image limited US ABD RT UPPER QUADRANT Radiology Routine Liver lesion 1 Occurrences starting 06/14/2022 until 07/14/2023 [facility] Work Phone: Comment on above: 1 Occurrences starting 06/14/2022 until 07/14/2023 [facility] Immunizations Immunization Date Immunization Notes Care Provider Bernadette vickers 11-02-2021 SARS-CoV-2 mRNA (syjsyfyumyv-rfrt-ropeh se) vaccine Madhuri MISHRA [facility] 04-29-2021 SARS-CoV-2 (COVID-19 ) mRNA BNT-162b2 vax Madhuri MISHRA [facility] 03-03-2021 SARS-CoV-2 (COVID-19 ) mRNA BNT-162b2 vax Madhuri MISHRA [facility] Comment on above: Result Comment: 2022: TPVAL 02-09-2021 influenza virus vaccine, unspecified formulation Madhuri MISHRA [facility] 02-09-2021 influenza, injectabl e, quadrivalent, preservative free Jumana Burgess PT Work Phone: [facility] 03-16-2020 influenza virus vaccine, unspecified formulation Madhuri MISHRA [facility] 03-16-2020 Influenza, injectabl e, Madin Jenn Canine Kidney, preservative free, quadrivalent Jumana Lupe PT Work Phone: [facility] 01-08-2018 influenza virus vaccine, unspecified formulation Madhuri MISHRA [facility] 01-08-2018 influenza, injectabl e, quadrivalent, contains preservative Jumanaben Burgess PT Work Phone: [facility] 01-08-2018 influenza, injectabl e, quadrivalent, preservative free Jumanaarmando Burgess PT Work Phone: [facility] 02-01-2017 influenza virus vaccine, unspecified formulation Madhuri MISHRA [facility] 02-01-2017 Influenza, injectabl e, Madin Jenn Canine Kidney, preservative free, quadrivalent Jumana Burgess PT Work Phone: [facility] 03-25-2016 influenza virus vaccine, unspecified formulation Madhuri MISHRA [facility] 03-25-2016 influenza, injectabl e, quadrivalent, preservative free Jumana Burgess PT Work Phone: [facility] 02-05-2010 tetanus toxoid, redu rolanda diphtheria toxoid, and acellular pertussis vaccine, adsorbed Madhuri MISHRA [facility] 01-05-2007 hepatitis B vaccine, pediatric or pediatric/adolescent dosage Madhuri BrieFix [facility] 11-02-2006 hepatitis B vaccine, pediatric or pediatric/adolescent dosage Madhuri BrieFix [facility] 11-02-2006 HPV, unspecified formulation Madhuri BrieFix [facility] 11-02-2006 human papilloma viru s vaccine, quadrivalent Jumana Burgess PT Work Phone: [facility] 11-02-2006 meningococcal ACWY vaccine, unspecified formulation Madhuri BrieFix [facility] 11-02-2006 meningococcal polysaccharide (groups A, C, Y and W-135) diphtheria toxoid conjugate vaccine (MCV4P) Jumana Burgess PT Work Phone: [facility] 02-20-1998 hepatitis B vaccine, pediatric or pediatric/adolescent dosage Madhuri MISHRA [facility] 12-28-1993 diphtheria, tetanus toxoids and pertussis vaccine Jumana Valentinton PT Work Phone: [facility] 12-07-1992 diphtheria, tetanus toxoids and pertussis vaccine Jumana Burgess PT Work Phone: [facility] 12-07-1992 measles, mumps and rubella virus vaccine Madhuri IMSHRA [facility] 12-07-1992 trivalent poliovirus vaccine, live, oral Jumanaben Valentinton PT Work Phone: [facility] 06-09-1992 diphtheria, tetanus toxoids and pertussis vaccine Jumana Burgess PT Work Phone: [facility] 06-09-1992 measles, mumps and rubella virus vaccine Madhuri MISHRA [facility] 06-09-1992 trivalent poliovirus vaccine, live, oral Jumana Burgess PT Work Phone: [facility] 10-31-1990 varicella virus vaccine Zi MISHRA [facility] 06-20-1990 diphtheria, tetanus toxoids and pertussis vaccine Jumana Burgess PT Work Phone: [facility] 05-21-1990 trivalent poliovirus vaccine, live, oral Jumana Blackston PT Work Phone: [facility] 01-10-1989 trivalent poliovirus vaccine, live, oral Jumana Blackston PT Work Phone: [facility] NEGATED: Highlighted row has not occurred!05-01-2019 influenza virus vaccine, live, attenuated, for intranasal use Madhuri MISHRA [facility] NEGATED: Highlighted row has not occurred!04-03-2019 influenza virus vaccine, live, attenuated, for intranasal use Madhuri MISHRA [facility] Payers Date Payer Category Payer Private Health Insurance [employer] [id number] 2022 Self-pay [id number] 2020 Unknown [id number]. [id number]. [id number] 1988 Unknown [id number] 2.16.840.1.232997.3.579.2. 182 1988 Unknown [id number] 2.16.840.1.686337.3.579.2. 593 1988 Unknown [id number] 2.16.840.1.360968.3.579.2. 593 1988 Unknown [id number] 2.16.840.1.248918.3.579.2. 593 1988 Unknown [id number] 2.16.840.1.361244.3.579.2. 593 1988 Unknown [id number] 2.16.840.1.583386.3.579.2. 593 1988 Unknown [id number] 2.16.840.1.575297.3.579.2. 593 1988 Unknown [id number] 2.16.840.1.169312.3.579.2. 593 1988 Unknown [id number] 2.16.840.1.070823.3.579.2. 593 1988 Unknown [id number] 2.16.840.1.244720.3.579.2. 593 1988 Unknown [id number] 2.16.840.1.315358.3.579.2. 593 1988 Unknown [id number] 2.16.840.1.534310.3.579.2. 593 1988 Unknown [id number] 2.16.840.1.016780.3.579.2. 593 1988 Unknown [id number] 2.16840.1.004739.3.579.2. 593 1988 Unknown [id number] 2.16840.1.594436.3.579.2. 177 1988 Unknown [id number] 2.16840.1.847122.3.579.2. 727 1988 Unknown [id number] 2.16840.1.693697.3.579.2. 727 1988 Unknown [id number] 2.16840.1.787364.3.579.2. 1259 1988 Unknown [id number] 2.16840.1.688908.3.579.2. 1259 1988 Unknown [id number] 2.16840.1.121128.3.579.2. 1259 1988 Unknown [id number] 2.16840.1.954258.3.579.2. 1259 1988 Unknown [id number] 2.16840.1.869969.3.579.2. 1259 1988 Unknown [id number] 2.16.840.1.778516.3.579.2. 1259 1988 Unknown [id number] 2.16840.1.609930.3.579.2. 1259 1988 Unknown [id number] 2.16.840.1.589815.3.579.2. 1258 1988 Unknown [id number] 2.16.840.1.841409.3.579.2. 9 1988 Unknown [id number] 2.16.840.1.781141.3.579.2. 1258 1988 Unknown [id number] 2.16.840.1.507350.3.579.2. 1258 1988 Unknown [id number] 2.16.840.1.490195.3.579.2. 1258 1988 Unknown [id number] 2.16840.1.424177.3.579.2. 1258 1988 Unknown [id number] 2.840.1.745795.3.579.2. 1258 1988 Unknown [id number] 2.16840.1.379904.3.579.2. 1258 1988 Unknown [id number] 2.16.840.1.253503.3.579.2. 9 1959 Unknown [id number] Unknown 100 [facility] [employer] [id number] Unknown [id number] 2..840.1.304009.3.579.2. 531 Unknown [id number] 2.16840.1.268644.3.579.2. 531 Social History Date Type Detail Facility Tobacco smoking stat us ORIS Unknown if ever smoked [facility] Work Phone: Start: 1990 Sex Assigned At Female [facility] Start: 03-28-2019 End: 05-27-2022 Tobacco smoking status NHIS Never smoked tobacco [facility] Start: 05-27-2022 End: 05-01-2023 Tobacco use and exposure Smokeless tobacco non-user [facility] Start: 05-27-2022 End: 02-06-2024 Alcohol intake Current drinker of alcohol (finding) [facility] Start: 03-28-2019 Alcohol Comment socially [facility] Start: 1990 Sex Assigned At Not on file [facility] Start: 11-02-2022 End: 04-18-2023 Sex Assigned At [facility] Start: 06-29-2022 End: 05-01-2023 Tobacco smoking status Ex-smoker (finding) [facility] Tobacco smoking status Never [facility] Start: 11-02-2022 End: 04-18-2023 History of Social function [facility] Start: 06-08-2021 Gender identity Identifies as female gender (finding) [facility] Start: 11-16-2021 End: 11-26-2021 Exposure to SARS-CoV-2 (event) Not sure [facility] History of tobacco use Current smoker [facility] Within the last year , have you been afraid of your partner or ex-partner? No [facility] Do you belong to any clubs or organizations such as restoration groups, unions, fraternal or athletic groups, or school groups? Yes [facility] Are you now , , , , never or living with a partner? [facility] How often to you hav e a drink containing alcohol? 2-4 times a month [facility] How many standard dr inks containing alcohol do you have on a typical day? 1 or 2 [facility] How often do you hav e 6 or more drinks on 1 occasion? Never [facility] Do you feel stress - tense, restless, nervous, or anxious, or unable to sleep at night because your mind is troubled all the time - these days [OSQ] Very much [facility] (I/We) worried wheth er (my/our) food would run out before (I/we) got money to buy more. Never true [facility] Goals Date Patient Goal Desired Activity /State Personal health goal Personal health goal Functional Status Date Assessment Result Facility 12-28-2023 Functional Status N/A [facility] 06-30-2022 Functional Status N/A [facility] Clinical Notes 05-03-2022 to 02-12-2024 Jumana Burgess, PT - 02/12/2024 4:00 PM Rox Hagen MD - 02/06/2024 9:31 AM Rox Hagen MD - 02/06/2024 9:24 AM Rox Hagen MD - 02/06/2024 9:00 AM EDTPatient Instructions Note Date & Type Note Facility 02-12-2024 History of Present illness Narrative Physical Therapy Treatment Visit Patient Name: Belgica Harper Today's Date: 02/12/24 Encounter Diagnoses Name Primary? Cervical radiculopathy Yes Visit number: 3 Timed Code Treatment Minutes: 40 minutes Total Treatment Time: 40 minutes Time In: 1600 Time Out: 1640 History: Pt. Presents to PT with c/c of left cervical radiculopathy which started 6-7 months ago. Insidious onset. X-ray: normal, No MRI has to do PT first. Reports pain/symptoms comes and goes throughout the day with no triggers of pain. Pain will start in neck and refer down left UE. Precautions: as tolerated Subjective Pt reports of no change in her neck pain today. Ankle swelling still present. Ankle pain worst while descending stairs. Pain: 4/10 neck, ankle 5/10 while descending stairs. Objective: PT Evaluation (02/05/24) Cervical ROM: normal ROM in all planes Joint: left hypomobility at C4/5/6 Palpation: increase left cervical paraspinal muscle tightness/spasm Flexibility: moderate left upper trapezius and cervical paraspinal Strength: scapular 4-/5 Treatment: Education: HEP education with demonstration, Educated on Eval Findings and POC Manual Therapy: (16 minutes); cervical SOR, cervical paraspinal MFR, UT stretching, cervical grade II joint mobs (lateral and PA). Cervical traction reduced radicular symptoms. Manual Cervical retractions in supine. Passive ROM, Joint mobilization, Soft Tissue Mobilization, Myofascial Release, Muscle Energy Technique, Neural Mobilization, Myofascial Cupping, Dry Needling, IASTM, and Scar mobilization Therapeutic Exercise: (14 minutes) Instructed Pt through exercises to improve postural awareness and continued with Tona cervical methods however trialed to stenosis exercises. exercises in grid; Started Ankle PREs to reduce swelling, pain and improve strength. Strength, Endurance, Flexibility, ROM, HEP, Neural Mobilization, Power, and Core Stability Therapeutic Activity: Exercises to improve dynamic activities, functional tasks, functional mobility to return to prior activity level Neuromuscular re-education: (10 minutes) Balance Training, Muscle Facilitation, Dynamic Stability, Core Stabilization, and Blood Flow Restriction Training (BFRT) Modalities: (denied minutes) prone: IFC with ice to cervical spine; Heat, Ice, Electrical Stimulation, Ultrasound, Cervical Mechanical Traction, Lumbar Mechanical Traction, Iontophoresis, and Fluidotherapy Assessment: Pt. Has participated in 3 PT session with start of POC on 02/05/24. Pt. Will benefit from skilled PT services. PT treatment to focus on Mckenized phase I produced increased radicular symptoms down L UE including new burning symptoms. Pt. Continues to demonstrate left cervical radiculopathy symptoms with N/T sensation occasionally occurring throughout the day. Moderate lateral ankle swelling still present. Pt. Educated to try epson salt bath to help decrease swelling. Pt. Reports ankle swelling has been there for 4 weeks. Left cervical spine hypomobility still present. Outcome Measure: 16% Short Term Goal: To be met in 2 weeks Goal 1: Pt to be instructed in home exercise program. Subcontract Manager Goals: To be met in 10 weeks Goal 1: Pt to report independence and compliance with home program. Goal 2: Pt. Will report of 0/10 neck pain while performing work tasks. Goal 3: Pt will demonstrate normal cervical paraspinal muscle flexibility to help decrease pain and improve her quality of life. Goal 4: Pt. Will demonstrate normal cervical spine joint mobility to help decrease pain and improve her functional mobility with daily tasks. Goal 5: Pt. Will demonstrate 5/5 scapular strength to help improve upright posture to decrease neck pain. Pt will benefit from skilled PT for 1-2x/week from 02/05/24 to 04/15/24 to address the above impairments. I hereby deem this POC medically necessary. Please sign below. Date: documented in this encounter [facility] 02-06-2024 History of Present illness Narrative Associated Problem(s): Anxiety Patient's Medicine is effective at controlling symptoms at current dose and frequency. PDMP reviewed with no evidence of overuse and abuse D/W patient to avoid use of benzodiazepines when consuming alcohol Advised against operating heavy machinery and driving long distances while on medicines. Associated Problem(s): Obesity (BMI 35.0-39.9 without comorbidity) Needs life style modification. Exercise Routinely Low Calorie Diet F/U in 4 weeks 3500 calorie deficit = 1lb weight loss Small portions TIming of meals Reduce Carbohydrate Intake High Protein Diet Images from the original note were not included. Subjective Patient ID: Belgica Harper is a 33 y.o. female who presents for Ankle Pain. Pt fell down steps and hurt her right ankle, she did go to the ER and had XR done nothing was broken , jan 09 is when this happened It is still painful and swollen , wanting referral to PT here at same office Pt is still seeing dr flores Current Outpatient Medications on File Prior to Visit Medication Sig Dispense Refill albuterol HFA 90 mcg/act inhaler INHALE 2 PUFFS INTO THE LUNGS EVERY 6 HOURS NEEDED FOR 30 DAYS ALPRAZolam (Xanax) 0.5 MG tablet Take 1 tablet (0.5 mg) by mouth in the morning and in the evening 60 tablet 0 amphetamine-dextroamphetamine XR (Adderall XR) 30 MG 24 hr capsule Take 1 capsule (30 mg) by mouth Daily Do not crush or chew. 30 capsule 0 baclofen (Lioresal) 10 MG tablet Take 1 tablet (10 mg) by mouth in the morning and 1 tablet (10 mg) in the evening and 1 tablet (10 mg) before bedtime. 90 tablet 0 clobetasol (Temovate) 0.05 % cream Apply 1 application topically Daily Apply pea-size amount daily for 30 days and then every other day for another 30 days. 60 g 1 EPINEPHrine (Adrenalin) 0.3 MG/0.3ML injection Inject 0.3 mL (0.3 mg) into the shoulder, thigh, or buttocks 1 (one) time for 1 dose 1 each 2 escitalopram (Lexapro) 20 MG tablet TAKE 1 TABLET BY MOUTH EVERY DAY IN THE MORNING 30 tablet 2 Cuswlwfldxv-Ydhirzojf-Asqzeq 100-62.5-25 MCG/ACT aerosol powder INHALE 1 PUFF INTO THE LUNGS EVERY DAY FOR 30 DAYS phentermine (Adipex-P) 37.5 MG tablet Take 1 tablet (37.5 mg) by mouth in the morning. Take before meals. 30 tablet 0 Vraylar 4.5 MG capsule TAKE 1 CAPSULE BY MOUTH EVERY DAY 30 capsule 5 No current facility-administered medications on file prior to visit. I have reviewed and reconciled the history and medication list with the patient today. Allergies Allergen Reactions Cat Hair Extract Anaphylaxis Iodinated Contrast Media Hives Iodine Itching and Swelling Omnipaque 300: Patient experienced itching on her neck and left side of her face. Also, pt complained of tongue feeling itchy and feels like something is stuck in her throat . Patient received diphenhydramine (Benadryl) Prednisone & Diphenhydramine Other Reaction(s): Unknown Social History Tobacco Use Smoking status: Former Smokeless tobacco: Never Substance Use Topics Alcohol use: Yes Alcohol/week: 2.0 standard drinks of alcohol Types: 2 Standard drinks or equivalent per week Drug use: Never Family History Problem Relation Name Age of Onset Hypertension Mother Hien Hyperlipidemia Mother Hien No Known Problems Father No Known Problems Daughter No Known Problems Daughter No Known Problems Daughter Migraines Other mother's side Diabetes Maternal Grandmother Analia Accidental Brother Jose Antonio Harper Past Medical History: Diagnosis Date Abnormal computed tomography angiography (CTA) of abdomen and pelvis 03/11/2019 mild to moderate acute diverticulitis involving a single but prominent diverticulum of the mid descending colon. 2.4 cm right ovarian cyst. B/L nehrolithiasis and likely nephrocalcinosis Abnormal LFTs Abnormal liver ultrasound 06/15/2022 US of liver shows Hepatic Steatosis, Right lobe hepatic cyst. Possible nephrocalcinosis and a few right renal stones Asthma (CMS/HCC) COVID 03/11/2021 Positive COVID Partial Pfizer immunization Delayed gastric emptying 09/12/2022 Diverticulitis Gall stones Gestational hypertension H/O CT scan of chest 07/30/2018 No Pulmonary Embolism, No Pulmonary Infiltrates, No suspicious findings HELLP syndrome History of being hospitalized Diverticulitis [facility] IV antibiotics (01/26/2018,03/10/2019) History of colonoscopy 05/28/2019 Normal History of diagnostic ultrasound 03/23/2018 Thyroid was normal History of diagnostic ultrasound 12/10/2021 shows stable Hepatic Steatosis and a liver cyst. No Gall Stones or Biliary Dilatation History of esophagogastroduodenoscopy 06/30/2022 Normal Hypopharynx and Normal Esophagus, gastritis, Non Bleeding gastric ulcers History of esophagogastroduodenoscopy 08/31/2022 UGI Normal Normal Hypopharynx, Normal Esophagus, Z-Line irregular 37 cm from the incisors, Previously Seen gastric ulcers had healed History of HIDA scan 08/28/2021 was normal. History of medical problems 03/18/2020 No acute intra-abdominal process, Diverticular Disease, B/L Non obstructing renal calculi. Stable lung nodule. History of medical problems 08/16/2021 Diffuse increase in hepatic echotexture, hepatic steatosis favored History of medical problems 06/10/2022 2.3 cm right hepatic hypodensity. Progressed in size from prior study. Diffuse Hepatic Steatosis. B/L Non obstructive Nephrolithiasis. 3 mm Right Middle Lobe nodule Stable Influenza A 05/07/2017 Left ovarian cyst 03/01/2019 simple cyst 1.2 cm Pancreatitis Pap smear for cervical cancer screening 04/20/2022 neg Post depression (CMS/HCC) Past Surgical History: Procedure Laterality Date SECTION, LOW TRANSVERSE 2012,2013, 2017 CHOLECYSTECTOMY 03/23/2023 Laporoscopic COLONOSCOPY 05/11/2018 Dr. Padgett COLONOSCOPY 05/28/[address] [facility] [address] Winn CT ANGIOGRAM CHEST 07/30/2018 CT ANGIOGRAM CHEST [facility] DATA LEGACY EGD 06/30/2022 Normal hypopharynx, normal esophagus, gastritis, Non bleeding gastric ulcers. Normal examined duodenum GALLBLADDER SURGERY 03/2023 HYSTERECTOMY PAP SMEAR 04/15/2021 normal PARTIAL HYSTERECTOMY 05/2016 PELVIC LAPAROSCOPY 02/10/2023 Visit Vitals LMP (LMP Unknown) Comment: partial hysterectomy 05/2016 OB Status Hysterectomy Smoking Status Former Review of Systems Constitutional: Negative for chills and fever. Musculoskeletal: Positive for joint swelling. Objective Physical Exam Constitutional: Appearance: Normal appearance. Musculoskeletal: Right ankle: Swelling present. Tenderness present. Legs: Neurological: Mental Status: She is alert. Assessment/Plan Problem List Items Addressed This Visit Obesity (BMI 35.0-39.9 without comorbidity) Needs life style modification. Exercise Routinely Low Calorie Diet F/U in 4 weeks 3500 calorie deficit = 1lb weight loss Small portions TIming of meals Reduce Carbohydrate Intake High Protein Diet Relevant Medications phentermine (Adipex-P) 37.5 MG tablet Localized edema - Primary Relevant Medications furosemide (Lasix) 20 MG tablet Injury of right ankle Relevant Orders Ambulatory referral to Physical Therapy No follow-ups on file. documented in this encounter [facility] 01-29-2024 Telephone encounter Note 25 visits out to 10/21/24 [facility] 01-29-2024 Miscellaneous Notes 25 visits out to 10/21/24 documented in this encounter [facility] 12-28-2023 Hospital Discharge instructions Patient Education 12/28/2023 15:59:41 Kidney Stones, Gett-bd-Qsyb Kidney Stones Kidney stones are rock-like masses [...] Follow these instructions at home: Medicines Take drmv-mwb-odzvyqz and prescription medicines only as told by [...] provider. Document Revised: 12/02/2022 Document Reviewed: 12/02/2022 ANDalyze Patient Education 2023 [employer]. Follow Up Care 11/07/2022 15:52:12 With:BHAVESH DEJESUS PA-C, JASON Address: When:1 year [facility] 12-28-2023 Note Patient Education Urology Kidney [...] these instructions at home: Medicines ? Take huob-myf-xzzkdvg and prescription medicines only as told by [...] provider. Document Revised: 12/02/2022 Document Reviewed: 12/02/2022 ANDalyze Patient Education ? 2023 [employer]. [facility] 12-19-2023 Note Education (CARDMN) ---- BELGICA HARPER ([id number]) 1990 F Date Time Provider Department 12/19/23 [...] Itching Date Reviewed: 12/19/2023 Reviewed by: Analia Umanzor RN - Fully Assessed Prescriptions as of [...] Encounter Status:Closed by GEGE LEMA on 12/19/[address] [facility] 12-19-2023 Note HNO ID: [id number] Author: GEGE LEMA Tech Service: ? Author Type: Technologist Type: Progress Notes Filed: 12/19/2023 15:45 Note Text: EVENT MONITOR DISPOSABLE PATCH INSTRUCTIONS Patient Name: Belgica Harper [facility] Number: [id number] Skin prepped and cleansed with alcohol Patch secured to prepped area Monitor Activated Serial #: [id number] Patient Instructed: Prescribed order timeframe Bathing guidelines Usage of event button and diary documentation Return of monitor at the end of prescribed order Call with problems [phone] or [phone]. [phone] Patient expresses a good understanding of instructions Tristian Pretty [facility] 12-19-2023 History of Present illness Narrative EVENT MONITOR DISPOSABLE PATCH INSTRUCTIONS Patient Name: Belgica Haprer [facility] Number: [id number] Skin prepped and cleansed with alcohol Patch secured to prepped area Monitor Activated Serial #: [id number] Patient Instructed: Prescribed order timeframe Bathing guidelines Usage of event button and diary documentation Return of monitor at the end of prescribed order Call with problems [phone] or [phone]. [phone] Patient expresses a good understanding of instructions Tristian Pretty documented in this encounter [facility] 12-19-2023 Instructions Solo Mora MD - 12/19/2023 3:27 PM EDT Next Steps: 1). Please wear a heart monitor for 2 weeks and mail it back 2). Please get a stress echo done and follow up with me afterwards documented in this encounter [facility] 12-19-2023 History of Present illness Narrative Images from the original note were not included. [facility] [place] Meghna Hooker Department of Cardiovascular Medicine SECTION OF CARDIAC PACING and ELECTROPHYSIOLOGY OUTPATIENT VISIT DATE December 19, 2023 OUTPATIENT VISIT TYPE NEW PRIMARY CARE PHYSICIAN: Giovani Hagen MD [address] [place] [address] CHIEF COMPLAINT: Syncope, cardiac evaluation for family [...] had any workup done including Stress Echo, awake overnight monitor or 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 Reports symptoms of palpitations [...] had any workup done including Stress Echo, awake overnight monitor or 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 PLAN AND RECOMMENDATIONS: - Exercise stress echo for exertional syncope to rule out structural or arrhythmic cause - 2 week tina Fitzgerald personally interviewed, confirmed and edited the above information as obtained by others. CONTACT INFORMATION: Solo Mora MD documented in this encounter [facility] 12-19-2023 Note HNO ID: [id number] Author: SOLO MORA MD Service: ? Author Type: Physician Type: Progress Notes Filed: 12/28/2023 02:49 Note Text: [facility] [place] Meghna Hooker Department of Cardiovascular Medicine SECTION OF CARDIAC PACING and ELECTROPHYSIOLOGY OUTPATIENT VISIT DATE December 19, 2023 OUTPATIENT VISIT TYPE NEW PRIMARY CARE PHYSICIAN: Giovani Hagen MD [address] [place] [address] CHIEF COMPLAINT: Syncope, cardiac evaluation for family [...] had any workup done including Stress Echo, awake overnight monitor or 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 Reports symptoms of palpitations [...] for syncopal episod (more content not included)... [facility] 12-19-2023 Note HNO ID: [id number] Author: SOLO MORA MD Service: ? Author Type: Physician Type: Procedures Filed: 02/21/2024 20:58 Note Text: Patient Name: Belgica Harper : 1990 Ordering Provider: Solo Mora Indication: R55 Syncope and collapse Type of Monitor: Extended Monitoring-Zio Patch Enrollment Dates: 12/19/2023-01/02/2024 IRHYTHM FINDINGS: Patient had a min HR of 57 bpm, max HR of 183 bpm, and avg HR of 97 bpm. Predominant underlying rhythm was Sinus Rhythm. 2 Ventricular Tachycardia runs occurred, the run with the fastest interval lasting 6 beats with a max rate of 182 bpm (avg 163 bpm); the run with the fastest interval was also the longest. Isolated SVEs were rare (<1.0%), SVE Couplets were rare (<1.0%), and no SVE Triplets were present. No Isolated VEs, VE Couplets, or VE Triplets were present. Patient triggered events correspond to sinus tachycardia Solo Mora MD [facility] 12-18-2023 Telephone encounter Note Patient had labwork performed on 12-13-2023. Dr. Du wanted you to be aware so you could review them. [facility] 12-18-2023 Miscellaneous Notes Patient had labwork performed on 12-13-2023. Dr. Du wanted you to be aware so you could review them. documented in this encounter [facility] 11-02-2023 Telephone encounter Note Images from the original note were not included. Records are in Care Everywhere: EP Referral- 11/01/23 (Dr. Shilo Dillon/Cardiology) Criss Mccrary [facility] 11-02-2023 Miscellaneous Notes Images from the original note were not included. Records are in Care Everywhere: EP Referral- 11/01/23 (Dr. Shilo Dillon/Cardiology) Criss Mccrary documented in this encounter [facility] 03-20-2023 Miscellaneous Notes Patient is a [...] prior to transfer. documented in this encounter [facility] 11-03-2022 Miscellaneous Notes PA for Ibsrela initiated electronically. Awaiting response [facility] ID# [id number] Rx BIN [id number] Rx PCN CLAIMCR Rx Grp STOH documented in this encounter [facility] 11-02-2022 History of Present illness Narrative [facility]al [facility] [place] Name: Belgica Harper MR#: [id number] Date: 11/02/2022 Time: 1 hour Referred by: [...] She was given the website for the [facility] Behavioral Medicine Program and shown the relaxation recordings with the recommendation to practice this and the rationale behind their use. Follow-up with Dr. Conteh was discussed as well as encouraging her to continue her PTSD work with a local trauma therapist. Soraida Zhang, Ph.D. documented in this encounter [facility] 11-02-2022 History of Present illness Narrative Assessment ASSESSMENT 32 year old female with medical refractory gastroparesis. PLAN I discussed surgical therapy for gastroparesis in detail. Belgica Harper is candidate for further medical treatment. Needs to stop Wegovy May consider for wireless motility capsule study Constipation medication change per Dr. 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 Maria Dolores Corey, DO P Sp Ddsi Clinical Pool Please ask her to see SEISMOGRAPH HELPER to r/o endometriosis there was a very slight abnormal wave (not strong) suggesting its possible Called and spoke with the patient and relayed providers message. documented in this encounter [facility] 10-18-2022 Miscellaneous Notes PA initiated via [employer]. Await response. Covered: Retail, Mail Order Unknown: Specialty, Long-Term Care Group ID: [facility] Group name: [facility]): [id number] PCN: [id number] documented in this encounter [facility] 10-18-2022 History of Present illness Narrative Images from the original note were not included. documented in this encounter [facility] 10-17-2022 Nurse Note EGG completed. Able to drink the 500 ml of water without any difficulty. documented in this encounter [facility] 09-12-2022 Note HNO ID: [id number] Author: RT Amber(R) Service: Nuclear Medicine Author Type: Alumni Secretary Type: Progress Notes Filed: 09/12/2022 2:46 PM [...] 10:11AM PATIENT DISCHARGED TO: Ambulatory patient[facility]. A Diagnostic radioactive procedure has taken place, with no further precautions necessary other than routine body substance precautions. More information regarding radiation safety can be found using this link: [email or web address]%20Medicine %[email or web address] SIGNATURE: RT Amber(R) PATIENT NAME: Belgica Harper DATE: September 12, 2022 TIME: 2:45 PM PAGER/CONTACT #: [facility] 09-12-2022 History of Present illness [...] 10:11AM PATIENT DISCHARGED TO: Ambulatory patient, left [facility]. A Diagnostic radioactive procedure has taken place, with no further precautions necessary other than routine body substance precautions. More information regarding radiation safety can be found using this link: [email or web address] 20-%20Diagnostic%20Nuclear%20Medicine% 20Procedures.[email or web address] SIGNATURE: RT Amber(R) PATIENT NAME: Belgica Harper DATE: September 12, 2022 TIME: 2:45 PM PAGER/CONTACT #: documented in this encounter [facility] 08-31-2022 Nurse Note POST OP LEARNING RESPONSE INSTRUCTION PROVIDED TO: Patient and family member METHOD OF INSTRUCTION: Written instruction - handouts Verbal instruction PATIENT / FAMILY RESPONSE: Information received as demonstrated by interest and questions FOLLOW-UP PLAN: Patient instructed to call with any further issues SUPPLEMENTAL MATERIAL: None REFERRAL (RECOMMENDATION): None Electronically Signed By: Wilma Limon RN In Department: AMBULATORY SURGERY [facility] 08-31-2022 Nurse Note POST OP LEARNING RESPONSE INSTRUCTION PROVIDED TO: Patient and family member METHOD OF INSTRUCTION: Written instruction - handouts Verbal instruction PATIENT / FAMILY RESPONSE: Information received as demonstrated by interest and questions FOLLOW-UP PLAN: Patient instructed to call with any further issues SUPPLEMENTAL MATERIAL: None REFERRAL (RECOMMENDATION): None Electronically Signed By: Wilma Limon RN In Department: AMBULATORY SURGERY PRE OP LEARNING ASSESSMENT PROCEDURE/SURGERY: GI PROCEDURES: EGD READINESS TO LEARN COGNITIVE ABILITY: Alert and oriented MOTIVATION TO LEARN: Interested FAMILY SUPPORT: Unable to assess - Family not present PATIENT LEARNS BEST BY: Written Instruction - Hand-outs Verbal Instruction FACTORS AFFECTING LEARNING: None PHYSICAL LIMITATIONS AFFECTING LEARNING: None Electronically Signed By: Ayleen Aj RN In Department: AMBULATORY SURGERY documented in this encounter [facility] 08-31-2022 History and physical note SEDATION HISTORY AND PHYSICAL EXAM SERVICE DATE: 08/31/2022 SERVICE TIME: 2:51 PM Subjective HPI: This is a 31 year old female who presents with PUD PAST ANESTHESIA HISTORY: No history of adverse event PAST MEDICAL HISTORY Diagnosis Date Asthma Bipolar disorder (HCC) Diverticulitis 2018 IBS (irritable bowel syndrome) PAST SURGICAL HISTORY Procedure Laterality Date SECTION HX COLONOSCOPY 04/2018 IBS-c Prior to Admission medications as of 08/31/22 1408 Medication Sig Last Dose Taking lisdexamfetamine (VYVANSE) 10 mg capsule Take 10 mg by mouth once daily. 08/31/2022 Yes baclofen (LIORESAL) 10 mg tablet 08/30/2022 Yes buPROPion SR (ZYBAN SR; WELLBUTRIN SR) 150 mg 12 hr tablet 08/31/2022 Yes ALPRAZolam (XANAX) 0.25 mg tablet Take 0.25 mg by mouth twice daily. 08/30/[address] (PROTONIX) 40 mg tablet Take 1 tablet by mouth twice daily before meals for [address] (PROTONIX) 40 mg tablet Take 1 tablet by mouth once daily. doxepin HCl (DOXEPIN ORAL) PREMARIN vaginal cream TRELEGY ELLIPTA 100-62.5-25 mcg inhalation powder methylphenidate LA (RITALIN LA) 20 mg 24 hr capsule TAKE 1 CAPSULE BY MOUTH EVERY DAY IN THE MORNING FOR 30 DAYS cariprazine (VRAYLAR) 4.5 mg capsule 1 capsule. SPRINTEC 0.25-35 mg-mcg per tablet ondansetron orally disintegrating (ZOFRAN ODT) 8 mg disintegrating tablet DISSOLVE 1 TABLET ON THE TONGUE 3 TIMES A DAY NEEDED cariprazine (VRAYLAR) 3 mg cap Take by mouth once daily. ALLERGIES Allergen Reactions Iv Contrast [Iodine] Swelling, Itching Omnipaque 300: Patient experienced itching on her neck and left side of her face. Also, pt complained of tongue feeling itchy and feels like something is stuck in her throat . Patient received diphenhydramine (Benadryl) Omnipaque [Iohexol] Itching Objective PHYSICAL EXAM: The remainder of the physical exam is noncontributory. AIRWAY: Airway Visualization of Uvula: Yes Mouth opening greater than 2 fingerbreadths: Yes Neck Full Range of Motion: Yes LUNGS: Lungs clear to auscultation CARDIAC: Regular rhythm,Regular rate Assessment/Plan ASA Class: ASA Class:: Patient with mild systemic disease Active Problems: PUD Provisional Diagnosis/Treatment Plan: EGD Procedure was discussed with the patient including risks of oversedation, bleeding, and perforation. Patient agreed to proceed. SEDATION GOAL: Anesthesia SIGNATURE: Carol Winn MD PATIENT NAME: Belgica Harper DATE: August 31, 2022 TIME: 2:51 PM [facility] 08-31-2022 History and physical note SEDATION HISTORY AND PHYSICAL EXAM SERVICE DATE: 08/31/2022 SERVICE TIME: 2:51 PM Subjective HPI: This is a 31 year old female who presents with PUD PAST ANESTHESIA HISTORY: No history of adverse event PAST MEDICAL HISTORY Diagnosis Date Asthma Bipolar disorder (HCC) Diverticulitis 2018 IBS (irritable bowel syndrome) PAST SURGICAL HISTORY Procedure Laterality Date SECTION HX COLONOSCOPY 04/2018 IBS-c Prior to Admission medications as of 08/31/22 1408 Medication Sig Last Dose Taking lisdexamfetamine (VYVANSE) 10 mg capsule Take 10 mg by mouth once daily. 08/31/2022 Yes baclofen (LIORESAL) 10 mg tablet 08/30/2022 Yes buPROPion SR (ZYBAN SR; WELLBUTRIN SR) 150 mg 12 hr tablet 08/31/2022 Yes ALPRAZolam (XANAX) 0.25 mg tablet Take 0.25 mg by mouth twice daily. 08/30/[address] (PROTONIX) 40 mg tablet Take 1 tablet by mouth twice daily before meals for [address] (PROTONIX) 40 mg tablet Take 1 tablet by mouth once daily. doxepin HCl (DOXEPIN ORAL) PREMARIN vaginal cream TRELEGY ELLIPTA 100-62.5-25 mcg inhalation powder methylphenidate LA (RITALIN LA) 20 mg 24 hr capsule TAKE 1 CAPSULE BY MOUTH EVERY DAY IN THE MORNING FOR 30 DAYS cariprazine (VRAYLAR) 4.5 mg capsule 1 capsule. SPRINTEC 0.25-35 mg-mcg per tablet ondansetron orally disintegrating (ZOFRAN ODT) 8 mg disintegrating tablet DISSOLVE 1 TABLET ON THE TONGUE 3 TIMES A DAY NEEDED cariprazine (VRAYLAR) 3 mg cap Take by mouth once daily. ALLERGIES Allergen Reactions Iv Contrast [Iodine] Swelling, Itching Omnipaque 300: Patient experienced itching on her neck and left side of her face. Also, pt complained of tongue feeling itchy and feels like something is stuck in her throat . Patient received diphenhydramine (Benadryl) Omnipaque [Iohexol] Itching Objective PHYSICAL EXAM: The remainder of the physical exam is noncontributory. AIRWAY: Airway Visualization of Uvula: Yes Mouth opening greater than 2 fingerbreadths: Yes Neck Full Range of Motion: Yes LUNGS: Lungs clear to auscultation CARDIAC: Regular rhythm,Regular rate Assessment/Plan ASA Class: ASA Class:: Patient with mild systemic disease Active Problems: PUD Provisional Diagnosis/Treatment Plan: EGD Procedure was discussed with the patient including risks of oversedation, bleeding, and perforation. Patient agreed to proceed. SEDATION GOAL: Anesthesia SIGNATURE: Carol Winn MD PATIENT NAME: Belgica Harper DATE: August 31, 2022 TIME: 2:51 PM documented in this encounter [facility] 08-31-2022 Nurse Note PRE OP LEARNING ASSESSMENT PROCEDURE/SURGERY: GI PROCEDURES: EGD READINESS TO LEARN COGNITIVE ABILITY: Alert and oriented MOTIVATION TO LEARN: Interested FAMILY SUPPORT: Unable to assess - Family not present PATIENT LEARNS BEST BY: Written Instruction - Hand-outs Verbal Instruction FACTORS AFFECTING LEARNING: None PHYSICAL LIMITATIONS AFFECTING LEARNING: None Electronically Signed By: Ayleen Aj RN In Department: AMBULATORY SURGERY [facility] 08-24-2022 Miscellaneous Notes Lm to confirm procedure for 08-31-22 documented in this encounter [facility] 07-05-2022 Hospital Discharge instructions Patient Education [...] With:Madhuri MISHRA Address: [facility] [address] [place] [address]- Business (1) When:11/04/2022 08:39:10 Comments:With a stone metabolic work-up [facility] 06-30-2022 Nurse Note Pt denies any nausea at this time. Pt given 3 oz of apple juice per request and tolerating at this time. Pt denies any other s/s at this time, smiling in conversation, 500ml of Nacl completed as well. Pt reports she feels ready to go home. [facility] 06-30-2022 Nurse Note Pt denies any nausea at this time. Pt given 3 oz of apple juice per request and tolerating at this time. Pt denies any other s/s at this time, smiling in conversation, 500ml of Nacl completed as well. Pt reports she feels ready to go home. Pt c/o nausea and started dry heaving at 1205, 4 mg iv zofran given at 1209. Pt vomiting liquid bile. Pt reported nausea improving, resting, and and wide open fluids continuing. Pt again started to c/o of nausea and dry heaving. Md updated and compazine suppository ordered, however pt reported not wanting. Md updated and verbal order to give another 4 mg of iv zofran received and given. Pt having egd for nausea and vomiting, in which she vomited even this morning before she came. Pt resting in bed at this time. POST OP LEARNING RESPONSE INSTRUCTION PROVIDED TO: Patient and family member METHOD OF INSTRUCTION: Individual instruction Written instruction - handouts Verbal instruction PATIENT / FAMILY RESPONSE: Verbalizes understanding of: POST-PROCEDURE INSTRUCTIONS-Correct actions to take to reduce post procedure complications FOLLOW-UP PLAN: Patient instructed to call with any further issues SUPPLEMENTAL MATERIAL: Post sedation instructions given Procedure discharge instructions REFERRAL (RECOMMENDATION): None Electronically Signed By: Wilma Limon In Department: AMBULATORY SURGERY PRE OP LEARNING ASSESSMENT PROCEDURE/SURGERY: GI PROCEDURES: EGD READINESS TO LEARN COGNITIVE ABILITY: Alert and oriented MOTIVATION TO LEARN: Interested FAMILY SUPPORT: High - Very involved in pt care PATIENT LEARNS BEST BY: Individual Instruction Written Instruction - Hand-outs Verbal Instruction FACTORS AFFECTING LEARNING: None PHYSICAL LIMITATIONS AFFECTING LEARNING: None Electronically Signed By: Elissa Kwok RN In Department: AMBULATORY SURGERY documented in this encounter [facility] 06-30-2022 Nurse Note Pt c/o nausea and started dry heaving at 1205, 4 mg iv zofran given at 1209. Pt vomiting liquid bile. Pt reported nausea improving, resting, and and wide open fluids continuing. Pt again started to c/o of nausea and dry heaving. Md updated and compazine suppository ordered, however pt reported not wanting. Md updated and verbal order to give another 4 mg of iv zofran received and given. Pt having egd for nausea and vomiting, in which she vomited even this morning before she came. Pt resting in bed at this time. [facility] 06-30-2022 Nurse Note POST OP LEARNING RESPONSE INSTRUCTION PROVIDED TO: Patient and family member METHOD OF INSTRUCTION: Individual instruction Written instruction - handouts Verbal instruction PATIENT / FAMILY RESPONSE: Verbalizes understanding of: POST-PROCEDURE INSTRUCTIONS-Correct actions to take to reduce post procedure complications FOLLOW-UP PLAN: Patient instructed to call with any further issues SUPPLEMENTAL MATERIAL: Post sedation instructions given Procedure discharge instructions REFERRAL (RECOMMENDATION): None Electronically Signed By: Wilma Limon In Department: AMBULATORY SURGERY [facility] 06-30-2022 History and physical note SEDATION HISTORY AND PHYSICAL EXAM SERVICE DATE: 06/30/2022 SERVICE TIME: 11:35 AM Subjective HPI: This is a 31 year old female who presents with N/V, dyspepsia PAST ANESTHESIA HISTORY: No history of adverse event PAST MEDICAL HISTORY Diagnosis Date Asthma Bipolar disorder (HCC) Diverticulitis 2017 IBS (irritable bowel syndrome) PAST SURGICAL HISTORY Procedure Laterality Date SECTION HX COLONOSCOPY 04/2018 IBS-c Prior to Admission medications as of 06/30/22 1114 Medication Sig Last Dose Taking baclofen (LIORESAL) 10 mg tablet Yes buPROPion SR (ZYBAN SR; WELLBUTRIN SR) 150 mg 12 hr tablet Yes PREMARIN vaginal cream Yes TRELEGY ELLIPTA 100-62.5-25 mcg inhalation powder Yes methylphenidate LA (RITALIN LA) 20 mg 24 hr capsule TAKE 1 CAPSULE BY MOUTH EVERY DAY IN THE MORNING FOR 30 DAYS Yes cariprazine (VRAYLAR) 4.5 mg capsule 1 capsule. Yes ALPRAZolam (XANAX) 0.25 mg tablet Take 0.25 mg by mouth twice daily. 06/29/2022 Yes cariprazine (VRAYLAR) 3 mg cap Take by mouth once daily. Yes lisdexamfetamine (VYVANSE) 10 mg capsule Take 10 mg by mouth once daily. doxepin HCl (DOXEPIN ORAL) SPRINTEC 0.25-35 mg-mcg per tablet ondansetron orally disintegrating (ZOFRAN ODT) 8 mg disintegrating tablet DISSOLVE 1 TABLET ON THE TONGUE 3 TIMES A DAY NEEDED ALLERGIES Allergen Reactions Iv Contrast [Iodine] Swelling, Itching Omnipaque 300: Patient experienced itching on her neck and left side of her face. Also, pt complained of tongue feeling itchy and feels like something is stuck in her throat . Patient received diphenhydramine (Benadryl) Omnipaque [Iohexol] Itching Objective PHYSICAL EXAM: The remainder of the physical exam is noncontributory. AIRWAY: Airway Visualization of Uvula: Yes Mouth opening greater than 2 fingerbreadths: Yes Neck Full Range of Motion: Yes LUNGS: Lungs clear to auscultation CARDIAC: Regular rhythm,Regular rate Assessment/Plan ASA Class: ASA Class:: Patient with severe systemic disease Active Problems: N/V, dyspepsia Provisional Diagnosis/Treatment Plan: EGD Procedure was discussed with the patient including risks of oversedation, bleeding, and perforation. Patient agreed to proceed. SEDATION GOAL: Anesthesia SIGNATURE: Carol Winn MD PATIENT NAME: Belgica Harper DATE: June 30, 2022 TIME: 11:35 AM [facility] 06-30-2022 History and physical note SEDATION HISTORY AND PHYSICAL EXAM SERVICE DATE: 06/30/2022 SERVICE TIME: 11:35 AM Subjective HPI: This is a 31 year old female who presents with N/V, dyspepsia PAST ANESTHESIA HISTORY: No history of adverse event PAST MEDICAL HISTORY Diagnosis Date Asthma Bipolar disorder (HCC) Diverticulitis 2018 IBS (irritable bowel syndrome) PAST SURGICAL HISTORY Procedure Laterality Date SECTION HX COLONOSCOPY 04/2018 IBS-c Prior to Admission medications as of 06/30/22 1114 Medication Sig Last Dose Taking baclofen (LIORESAL) 10 mg tablet Yes buPROPion SR (ZYBAN SR; WELLBUTRIN SR) 150 mg 12 hr tablet Yes PREMARIN vaginal cream Yes TRELEGY ELLIPTA 100-62.5-25 mcg inhalation powder Yes methylphenidate LA (RITALIN LA) 20 mg 24 hr capsule TAKE 1 CAPSULE BY MOUTH EVERY DAY IN THE MORNING FOR 30 DAYS Yes cariprazine (VRAYLAR) 4.5 mg capsule 1 capsule. Yes ALPRAZolam (XANAX) 0.25 mg tablet Take 0.25 mg by mouth twice daily. 06/29/2022 Yes cariprazine (VRAYLAR) 3 mg cap Take by mouth once daily. Yes lisdexamfetamine (VYVANSE) 10 mg capsule Take 10 mg by mouth once daily. doxepin HCl (DOXEPIN ORAL) SPRINTEC 0.25-35 mg-mcg per tablet ondansetron orally disintegrating (ZOFRAN ODT) 8 mg disintegrating tablet DISSOLVE 1 TABLET ON THE TONGUE 3 TIMES A DAY NEEDED ALLERGIES Allergen Reactions Iv Contrast [Iodine] Swelling, Itching Omnipaque 300: Patient experienced itching on her neck and left side of her face. Also, pt complained of tongue feeling itchy and feels like something is stuck in her throat . Patient received diphenhydramine (Benadryl) Omnipaque [Iohexol] Itching Objective PHYSICAL EXAM: The remainder of the physical exam is noncontributory. AIRWAY: Airway Visualization of Uvula: Yes Mouth opening greater than 2 fingerbreadths: Yes Neck Full Range of Motion: Yes LUNGS: Lungs clear to auscultation CARDIAC: Regular rhythm,Regular rate Assessment/Plan ASA Class: ASA Class:: Patient with severe systemic disease Active Problems: N/V, dyspepsia Provisional Diagnosis/Treatment Plan: EGD Procedure was discussed with the patient including risks of oversedation, bleeding, and perforation. Patient agreed to proceed. SEDATION GOAL: Anesthesia SIGNATURE: Carol Winn MD PATIENT NAME: Belgica Harper DATE: June 30, 2022 TIME: 11:35 AM documented in this encounter [facility] 06-30-2022 Nurse Note PRE OP LEARNING ASSESSMENT PROCEDURE/SURGERY: GI PROCEDURES: EGD READINESS TO LEARN COGNITIVE ABILITY: Alert and oriented MOTIVATION TO LEARN: Interested FAMILY SUPPORT: High - Very involved in pt care PATIENT LEARNS BEST BY: Individual Instruction Written Instruction - Hand-outs Verbal Instruction FACTORS AFFECTING LEARNING: None PHYSICAL LIMITATIONS AFFECTING LEARNING: None Electronically Signed By: Elissa Kwok RN In Department: AMBULATORY SURGERY [facility] 06-23-2022 Miscellaneous Notes Confirmed procedure for 06-30-22 documented in this encounter [facility] 06-15-2022 Note HNO ID: [id number] Author: Monet Osei RDMS Service: Abstract Author Type: Cannon Pinion Adjuster Type: Progress Notes Filed: 06/15/2022 8:09 PM [...] Osei RDMS June 15, 2022 8:08 PM [facility] 06-15-2022 History of Present illness [...] 2022 8:08 PM documented in this encounter [facility] 06-14-2022 Miscellaneous Notes Images from the [...] MD 06/14/2022 9:35 AM EST Back to [facility], I reviewed the ultrasound done in November [...] needed pending results documented in this encounter [facility] 06-10-2022 History of Present illness Narrative [...] 2022 10:01 AM documented in this encounter [facility] 05-27-2022 Note HNO ID: [id number] Author: RT Nakita(Aroldo) Service: Radiology Author Type: [...] RT Nakita(R) May 27, 2022 12:29 PM [facility] 05-27-2022 History of Present illness [...] 2022 12:29 PM documented in this encounter [facility] 05-27-2022 History of Present illness Narrative [...] 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 SOB (shortness of breath) - ICD9: 786.05, ICD10: R06.02 At night when laying down + snoring Will start with CXR Patient will benefit from sleep study to rule out SILVER and even TTE pending the CXR results - XR CHEST 2V FRONTAL/LAT Carol Winn MD Follow Up: No follow-ups on file. documented in this encounter [facility] 05-03-2022 Evaluation note Encounter Date Diagnosis Assessment Notes Apr, ENGLISH (nonalcoholic steatohepatiti s) (ICD-10 - K75.81) Apr, Abnormal ultrasound (ICD-10 - R93.89) Apr, Elevated liver enzymes (ICD-10 - R74.8) Apr, Liver cyst (ICD-10 - K76.89) [facility] Other Evaluation + Plan note Future Appointments Appointment Date:06/30/2022 10:00:00 AM Scheduled Provider: Location:[facility] Appointment Type:Urology CALL PAT Appointment Date:07/05/2022 08:15:00 AM Scheduled Provider: Location:[facility] Appointment Type:Urology FT Diagnostic Tests Pending * [facility]ments Appointment Date:11/07/2022 03:15:00 PM Scheduled Provider:Madhuri MISHRA MD Location:[facility] App[facility]ment Type:[facility] Future Appointments Appointment Date:12/30/2024 03:15:00 PM Scheduled Provider:Madhuri MISHRA MD Location:[facility] Appointment Type:URO Office Visit [facility] evaluation noteNo assessment information available [facility] [place] Work Phone: Evaluation note* Diagnosis Fatty liver- Primary Other chronic nonalcoholic liver disease Bilious vomiting with nausea Right sided abdominal pain Abdominal pain, unspecified site Nausea Nausea alone History of diverticulitis SOB (shortness of breath) Shortness of breath documented in this encounter [facility] note* Diagnosis Liver lesion- Primary Other specified disorders of liver documented in this encounter [facility] note* Diagnosis Gastroparesis- Primary documented in this encounter [facility] note* Diagnosis Gastroparesis- Primary documented in this encounter [facility] note* Diagnosis Irritable bowel syndrome with constipation- Primary Irritable bowel syndrome documented in this encounter [facility] note* Diagnosis Gastroparesis documented in this encounter [facility] note* Diagnosis Gastroparesis- Primary documented in this encounter [facility] note* Diagnosis SOB (shortness of breath) Shortness of breath documented in this encounter [facility] note* Diagnosis Liver lesion Other specified disorders of liver documented in this encounter [facility] note* Diagnosis Elevated LFTs Other abnormal blood chemistry documented in this encounter [facility] note* Diagnosis Bilious vomiting with nausea Right sided abdominal pain Abdominal pain, unspecified site Nausea Nausea alone documented in this encounter [facility] note* Diagnosis Nausea Nausea alone documented in this encounter [facility] note* Diagnosis Gastroparesis- Primary documented in this encounter [facility] note* Diagnosis Syncope and collapse- Primary documented in this encounter [facility] note* Diagnosis Syncope, unspecified syncope type- Primary documented in this encounter [facility] note* Diagnosis Syncope, unspecified syncope type- Primary documented in this encounter [facility] note* Diagnosis Nausea- Primary Nausea alone PUD (peptic ulcer disease) Peptic ulcer, unspecified site, unspecified as acute or chronic, without mention of hemorrhage, perforation, or obstruction Nausea Nausea alone documented in this encounter [facility] note* Diagnosis PUD (peptic ulcer disease)- Primary Peptic ulcer, unspecified site, unspecified as acute or chronic, without mention of hemorrhage, perforation, or obstruction Bilious vomiting with nausea Right sided abdominal pain Abdominal pain, unspecified site Nausea- Primary Nausea alone PUD (peptic ulcer disease) Peptic ulcer, unspecified site, unspecified as acute or chronic, without mention of hemorrhage, perforation, or obstruction [facility] Diagnosis Attention deficit hyperactivity disorder, predominantly inattentive type (CMS/HCC)- Primary Bipolar disorder, in partial remission, most recent episode manic (CMS/HCC) Dizziness Dizziness and giddiness Nonintractable episodic headache, unspecified headache type Attention deficit hyperactivity disorder, predominantly inattentive type (CMS/HCC)- Primary Anxiety Anxiety state, unspecified Bipolar disorder, in partial remission, most recent episode manic (CMS/HCC) History of cholecystectomy Other acquired absence of organ History of acute pancreatitis Anaphylaxis, sequela Cough, unspecified type Bipolar disorder, in partial remission, most recent episode manic (CMS/HCC)- Primary Attention deficit hyperactivity disorder (ADHD), predominantly inattentive type (CMS/HCC) Attention deficit hyperactivity disorder, predominantly inattentive type (CMS/HCC) Anxiety Anxiety state, unspecified Encounter for well adult exam without abnormal findings- Primary Attention deficit hyperactivity disorder, predominantly inattentive type (CMS/HCC) Anxiety Anxiety state, unspecified Vitamin D deficiency Bipolar disorder, in partial remission, most recent episode manic (CMS/HCC) Obesity (BMI 35.0-39.9 without comorbidity) Cervical radiculopathy- Primary Brachial neuritis or radiculitis nos Acute nonintractable headache, unspecified headache type Nausea and vomiting, unspecified vomiting type Localized edema- Primary Edema Obesity (BMI 35.0-39.9 without comorbidity) Injury of right ankle, subsequent encounter Anxiety Anxiety state, unspecified Bipolar disorder, in partial remission, most recent episode manic (CMS/HCC) documented in this encounter [facility]* Diagnosis Attention deficit hyperactivity disorder, predominantly inattentive type (CMS/HCC)- Primary Bipolar disorder, in partial remission, most recent episode manic (CMS/HCC) Dizziness Dizziness and giddiness Nonintractable episodic headache, unspecified headache type Attention deficit hyperactivity disorder, predominantly inattentive type (CMS/HCC)- Primary Anxiety Anxiety state, unspecified Bipolar disorder, in partial remission, most recent episode manic (CMS/HCC) History of cholecystectomy Other acquired absence of organ History of acute pancreatitis Anaphylaxis, sequela Cough, unspecified type Bipolar disorder, in partial remission, most recent episode manic (CMS/HCC)- Primary Attention deficit hyperactivity disorder (ADHD), predominantly inattentive type (CMS/HCC) Attention deficit hyperactivity disorder, predominantly inattentive type (CMS/HCC) Anxiety Anxiety state, unspecified Encounter for well adult exam without abnormal findings- Primary Attention deficit hyperactivity disorder, predominantly inattentive type (CMS/HCC) Anxiety Anxiety state, unspecified Vitamin D deficiency Bipolar disorder, in partial remission, most recent episode manic (CMS/HCC) Obesity (BMI 35.0-39.9 without comorbidity) Cervical radiculopathy- Primary Brachial neuritis or radiculitis nos Acute nonintractable headache, unspecified headache type Nausea and vomiting, unspecified vomiting type Cervical radiculopathy- Primary Brachial neuritis or radiculitis nos Localized edema- Primary Edema Obesity (BMI 35.0-39.9 without comorbidity) Injury of right ankle, subsequent encounter Anxiety Anxiety state, unspecified Bipolar disorder, in partial remission, most recent episode manic (CMS/HCC) documented [facility] encounter [facility]* Diagnosis Attention deficit hyperactivity disorder, predominantly inattentive type (CMS/HCC)- Primary Bipolar disorder, in partial remission, most recent episode manic (CMS/HCC) Dizziness Dizziness and giddiness Nonintractable episodic headache, unspecified headache type Attention deficit hyperactivity disorder, predominantly inattentive type (CMS/HCC)- Primary Anxiety Anxiety state, unspecified Bipolar disorder, in partial remission, most recent episode manic (CMS/HCC) History of cholecystectomy Other acquired absence of organ History of acute pancreatitis Anaphylaxis, sequela Cough, unspecified type Bipolar disorder, in partial remission, most recent episode manic (CMS/HCC)- Primary Attention deficit hyperactivity disorder (ADHD), predominantly inattentive type (CMS/HCC) Attention deficit hyperactivity disorder, predominantly inattentive type (CMS/HCC) Anxiety Anxiety state, unspecified Encounter for well adult exam without abnormal findings- Primary Attention deficit hyperactivity disorder, predominantly inattentive type (CMS/HCC) Anxiety Anxiety state, unspecified Vitamin D deficiency Bipolar disorder, in partial remission, most recent episode manic (CMS/HCC) Obesity (BMI 35.0-39.9 without comorbidity) Cervical radiculopathy- Primary Brachial neuritis or radiculitis nos Acute nonintractable headache, unspecified headache type Nausea and vomiting, unspecified vomiting type Localized edema- Primary Edema Obesity (BMI 35.0-39.9 without comorbidity) Injury of right ankle, subsequent encounter Anxiety Anxiety state, unspecified Bipolar disorder, in partial remission, most recent episode manic (CMS/HCC) Cervical radiculopathy- Primary Brachial neuritis or radiculitis nos documented [facility]* Diagnosis Attention deficit hyperactivity disorder, predominantly inattentive type (CMS/HCC)- Primary Bipolar disorder, in partial remission, most recent episode manic (CMS/HCC) Dizziness Dizziness and giddiness Nonintractable episodic headache, unspecified headache type Attention deficit hyperactivity disorder, predominantly inattentive type (CMS/HCC)- Primary Anxiety Anxiety state, unspecified Bipolar disorder, in partial remission, most recent episode manic (CMS/HCC) History of cholecystectomy Other acquired absence of organ History of acute pancreatitis Anaphylaxis, sequela Cough, unspecified type Bipolar disorder, in partial remission, most recent episode manic (CMS/HCC)- Primary Attention deficit hyperactivity disorder (ADHD), predominantly inattentive type (CMS/HCC) Attention deficit hyperactivity disorder, predominantly inattentive type (CMS/HCC) Anxiety Anxiety state, unspecified Encounter for well adult exam without abnormal findings- Primary Attention deficit hyperactivity disorder, predominantly inattentive type (CMS/HCC) Anxiety Anxiety state, unspecified Vitamin D deficiency Bipolar disorder, in partial remission, most recent episode manic (CMS/HCC) Obesity (BMI 35.0-39.9 without comorbidity) Cervical radiculopathy- Primary Brachial neuritis or radiculitis nos Acute nonintractable headache, unspecified headache type Nausea and vomiting, unspecified vomiting type Localized edema- Primary Edema Obesity (BMI 35.0-39.9 without comorbidity) Injury of right ankle, subsequent encounter Anxiety Anxiety state, unspecified Bipolar disorder, in partial remission, most recent episode manic (CMS/HCC) Cervical radiculopathy- Primary Brachial neuritis or radiculitis nos documented in this encounter [facility] Diagnosis Attention deficit hyperactivity disorder, predominantly inattentive type (CMS/HCC)- Primary Bipolar disorder, in partial remission, most recent episode manic (CMS/HCC) Dizziness Dizziness and giddiness Nonintractable episodic headache, unspecified headache type Attention deficit hyperactivity disorder, predominantly inattentive type (CMS/HCC)- Primary Anxiety Anxiety state, unspecified Bipolar disorder, in partial remission, most recent episode manic (CMS/HCC) History of cholecystectomy Other acquired absence of organ History of acute pancreatitis Anaphylaxis, sequela Cough, unspecified type Bipolar disorder, in partial remission, most recent episode manic (CMS/HCC)- Primary Attention deficit hyperactivity disorder (ADHD), predominantly inattentive type (CMS/HCC) Attention deficit hyperactivity disorder, predominantly inattentive type (CMS/HCC) Anxiety Anxiety state, unspecified Encounter for well adult exam without abnormal findings- Primary Attention deficit hyperactivity disorder, predominantly inattentive type (CMS/HCC) Anxiety Anxiety state, unspecified Vitamin D deficiency Bipolar disorder, in partial remission, most recent episode manic (CMS/HCC) Obesity (BMI 35.0-39.9 without comorbidity) Cervical radiculopathy- Primary Brachial neuritis or radiculitis nos Acute nonintractable headache, unspecified headache type Nausea and vomiting, unspecified vomiting type Localized edema- Primary Edema Obesity (BMI 35.0-39.9 without comorbidity) Injury of right ankle, subsequent encounter Anxiety Anxiety state, unspecified Bipolar disorder, in partial remission, most recent episode manic (CMS/HCC) Cervical radiculopathy- Primary Brachial neuritis or radiculitis nos documented in this encounter [facility]* Diagnosis Attention deficit hyperactivity disorder, predominantly inattentive type (CMS/HCC)- Primary Bipolar disorder, in partial remission, most recent episode manic (CMS/HCC) Dizziness Dizziness and giddiness Nonintractable episodic headache, unspecified headache type Attention deficit hyperactivity disorder, predominantly inattentive type (CMS/HCC)- Primary Anxiety Anxiety state, unspecified Bipolar disorder, in partial remission, most recent episode manic (CMS/HCC) History of cholecystectomy Other acquired absence of organ History of acute pancreatitis Anaphylaxis, sequela Cough, unspecified type Bipolar disorder, in partial remission, most recent episode manic (CMS/HCC)- Primary Attention deficit hyperactivity disorder (ADHD), predominantly inattentive type (CMS/HCC) Attention deficit hyperactivity disorder, predominantly inattentive type (CMS/HCC) Anxiety Anxiety state, unspecified Encounter for well adult exam without abnormal findings- Primary Attention deficit hyperactivity disorder, predominantly inattentive type (CMS/HCC) Anxiety Anxiety state, unspecified Vitamin D deficiency Bipolar disorder, in partial remission, most recent episode manic (CMS/HCC) Obesity (BMI 35.0-39.9 without comorbidity) Cervical radiculopathy- Primary Brachial neuritis or radiculitis nos Acute nonintractable headache, unspecified headache type Nausea and vomiting, unspecified vomiting type Localized edema- Primary Edema Obesity (BMI 35.0-39.9 without comorbidity) Injury of right ankle, subsequent encounter Anxiety Anxiety state, unspecified Bipolar disorder, in partial remission, most recent episode manic (CMS/HCC) Attention deficit hyperactivity disorder (ADHD), predominantly inattentive type (CMS/HCC) documented in this encounter [facility]* Diagnosis Attention deficit hyperactivity disorder, predominantly inattentive type (CMS/HCC)- Primary Bipolar disorder, in partial remission, most recent episode manic (CMS/HCC) Dizziness Dizziness and giddiness Nonintractable episodic headache, unspecified headache type Attention deficit hyperactivity disorder, predominantly inattentive type (CMS/HCC)- Primary Anxiety Anxiety state, unspecified Bipolar disorder, in partial remission, most recent episode manic (CMS/HCC) History of cholecystectomy Other acquired absence of organ History of acute pancreatitis Anaphylaxis, sequela Cough, unspecified type Bipolar disorder, in partial remission, most recent episode manic (CMS/HCC)- Primary Attention deficit hyperactivity disorder (ADHD), predominantly inattentive type (CMS/HCC) Attention deficit hyperactivity disorder, predominantly inattentive type (CMS/HCC) Anxiety Anxiety state, unspecified Encounter for well adult exam without abnormal findings- Primary Attention deficit hyperactivity disorder, predominantly inattentive type (CMS/HCC) Anxiety Anxiety state, unspecified Vitamin D deficiency Bipolar disorder, in partial remission, most recent episode manic (CMS/HCC) Obesity (BMI 35.0-39.9 without comorbidity) Cervical radiculopathy- Primary Brachial neuritis or radiculitis nos Acute nonintractable headache, unspecified headache type Nausea and vomiting, unspecified vomiting type Localized edema- Primary Edema Obesity (BMI 35.0-39.9 without comorbidity) Injury of right ankle, subsequent encounter Anxiety Anxiety state, unspecified Bipolar disorder, in partial remission, most recent episode manic (CMS/HCC) Cervical radiculopathy- Primary Brachial neuritis or radiculitis nos documented in this encounter [facility]* Diagnosis Attention deficit hyperactivity disorder, predominantly inattentive type (CMS/HCC)- Primary Bipolar disorder, in partial remission, most recent episode manic (CMS/HCC) Dizziness Dizziness and giddiness Nonintractable episodic headache, unspecified headache type Attention deficit hyperactivity disorder, predominantly inattentive type (CMS/HCC)- Primary Anxiety Anxiety state, unspecified Bipolar disorder, in partial remission, most recent episode manic (CMS/HCC) History of cholecystectomy Other acquired absence of organ History of acute pancreatitis Anaphylaxis, sequela Cough, unspecified type Bipolar disorder, in partial remission, most recent episode manic (CMS/HCC)- Primary Attention deficit hyperactivity disorder (ADHD), predominantly inattentive type (CMS/HCC) Attention deficit hyperactivity disorder, predominantly inattentive type (CMS/HCC) Anxiety Anxiety state, unspecified Encounter for well adult exam without abnormal findings- Primary Attention deficit hyperactivity disorder, predominantly inattentive type (CMS/HCC) Anxiety Anxiety state, unspecified Vitamin D deficiency Bipolar disorder, in partial remission, most recent episode manic (CMS/HCC) Obesity (BMI 35.0-39.9 without comorbidity) Cervical radiculopathy- Primary Brachial neuritis or radiculitis nos Acute nonintractable headache, unspecified headache type Nausea and vomiting, unspecified vomiting type Localized edema- Primary Edema Obesity (BMI 35.0-39.9 without comorbidity) Injury of right ankle, subsequent encounter Anxiety Anxiety state, unspecified Bipolar disorder, in partial remission, most recent episode manic (CMS/HCC) Cervical radiculopathy- Primary Brachial neuritis or radiculitis nos documented in this encounter [facility] HealthcareHistory general Narrative - Reported* Type Description Date Medical History Anxiety Medical History Depression Medical History Diverticulosis Medical History bipolar Surgical History C section Surgical History hysterectomy Hospitalization History see above Hospitalization History diverticulitis 01/24/18 Hospitalization History NONE ON THE LAST YEAR [facility] Other Hospital course Narrative No data available for this section [facility] No data available for this section [facility] No data available for this section [facility] (narrative)* Outpatient Procedure (Routine) - Authorized Specialty Diagnoses / Procedures Referred By Contmusa t Referred To Contact [facility] Diagnoses Bilious vomiting with nausea Right sided abdominal pain Procedures EGD DIAGNOSTIC ESOPHAGOGASTRODUODENOSC [place] [address] [place] [address] [facility] [place] [address] [place] [address] Referral ID Status Reason Start Date Expiration Date Visits Requested Visits Authorized [id number] Authorized Auto-Generat ed Referral 05/27/2022 05/27/2023 1 1 * MRI/CT (Routine) - Authorized Specialty Diagnoses / Procedures Referred By Contac t Referred To Contact CT IMAGING Diagnoses Bilious vomiting with nausea Right sided abdominal pain Nausea Procedures CT ABD/PEL WO IVCON CT ABD & PELVIS W/O CONTRAST Carol Winn [place] [id number] [place] [phone] Ct Imaging Referral ID Status Reason Start Date Expiration Date Visits Requested Visits Authorized [id number] Authorized Auto-Generat ed Referral 05/27/2022 06/26/2023 1 1 [facility] for referral (narrative)* Diagnostic Procedure Only (Routine) - Authorized Specialty Diagnoses / Procedures Referred By Norma t Referred To Contact [facility] Diagnoses Liver lesion Procedures US ABD RT UPPER QUADRANT US ABDOMINAL [place] W/[place] [address] [place] [address] [facility] Referral ID Status Reason Start Date Expiration Date Visits Requested Visits Authorized [id number] Authorized Auto-Generat ed Referral 06/14/2022 07/14/2023 1 1 [facility] for referral (narrative)* Diagnostic Procedure Only (Routine) - Closed Specialty Diagnoses / Procedures Referred By Norma t Referred To Contact [facility] Diagnoses Liver lesion Procedures US ABD RT UPPER QUADRANT US ABDOMINAL [place] W/[place] [address] [place] [address] [place] [address] Referral ID Status Reason Start Date Expiration Date V isits Requested Visits Authorized [id number] Closed Auto-Generate d Referral 06/14/2022 07/14/2023 1 1 [facility] for referral (narrative)* Diagnostic Procedure Only (Routine) - Closed Specialty Diagnoses / Procedures [facility] Referred To Contact [facility] Diagnoses Elevated LFTs Procedures US ABD RT UPPER QUADRANT US ABDOMINAL REAL [place] W/[place] [address] [place] [address] [place] [address] Referral ID Status Reason Start Date Expiration Date V isits Requested Visits Authorized [id number] Closed Auto-Generate d Referral 11/24/2021 12/24/2022 [address] [facility] for referral (narrative)* Diagnostic Procedure Only (Routine) - Closed Specialty Diagnoses / Procedures [facility] Referred To Contact [facility] Diagnoses Nausea Procedures NM GASTRIC EMPTYING SOLID GASTRIC EMPTYING STUDY Carol Winn MD [id number] [place] [phone] [facility] [address] [place] [address] Referral ID Status Reason Start Date Expiration Date V isits Requested Visits Authorized [id number] Closed Auto-Generate d Referral 08/31/2022 09/30/2023 [address] [facility] for referral (narrative)* Outpatient Procedure (Routine) - Authorized Specialty Diagnoses / Procedures [facility] Ref[facility] To [facility] Diagnoses Gastroparesis Procedures ECG COMPLETE ECG ROUTINE ECG W/LEAST 12 LDS W/I&R Solo Mora MD [address] [place] [address] [place] [address] Referral ID Status Reason Start Date Expiration Date Visits Requested Visits Authorized [id number] Authorized Auto-Generat ed Referral 11/02/2023 11/01/2024 [address] [facility] for referral (narrative)* Outpatient Procedure (Routine) - Authorized Specialty Diagnoses / Procedures Referred By [facility] Referred To Contact [facility] Diagnoses Syncope and collapse Procedures ECG COMPLETE ECG ROUTINE ECG W/LEAST 12 LDS W/I&R Solo Mora MD [address] [place] [address] [place] [address] Referral ID Status Reason Start Date Expiration Date Visits Requested Visits Authorized [id number] Authorized Auto-Generat ed Referral 12/19/2023 12/18/2024 [address] [facility] for referral (narrative)* Diagnostic Procedure Only (Routine) - Closed Specialty Diagnoses / Procedures Referred By [facility] Referred To Contact [facility] Diagnoses Nausea Procedures NM GASTRIC EMPTYING SOLID [place]STR[place] [address] [place] [address] [facility] [address] [place] [id number] Referral ID Status Reason Start Date Expiration Date V isits Requested Visits Authorized [id number] Closed Auto-Generate d Referral 08/31/2022 09/30/2023 1 1 * Outpatient Procedure (Routine) - Closed Specialty Diagnoses / Procedures Referred By [facility] Referred To Contact [facility] Diagnoses PUD (peptic ulcer disease) Procedures EGD DIAGNOSTIC ESOPHAGOGASTRODUODENOSC OPY [place] [address] [place] [address] [facility] [place] [address] [place] [id number] Referral ID Status Reason Start Date Expiration Date V isits Requested Visits Authorized [id number] Closed Auto-Generate d Referral 06/30/2022 07/01/2023 [address] [facility] for referral (narrative)* Outpatient Procedure (Routine) - Closed Specialty Diagnoses / Procedures Referred By Norma kennedy Referred To Contact [facility] [place] Diagnoses PUD (peptic ulcer disease) Procedures EGD DIAGNOSTIC ESOPHAGOGASTRODUODENOSC OPY [place] [address] [place] [address] [address] Referral ID Status Reason Start Date Expiration Date V isits Requested Visits Authorized [id number] Closed Auto-Generate d Referral 06/30/2022 07/01/2023 1 1 * Outpatient Procedure (Routine) - Closed Specialty Diagnoses / Procedures Referred By Norma kennedy Referred To Contact [facility] Diagnoses Bilious vomiting with nausea Right sided abdominal pain Procedures EGD DIAGNOSTIC ESOPHAGOGASTRODUODENOSC OPY [place] [address] [place] [address] [address] Referral ID Status Reason Start Date Expiration Date V isits Requested Visits Authorized [id number] Closed Auto-Generate d Referral 05/27/2022 05/27/2023 [address] [facility] for visit NarrativePATIENT HERE AT THE REQUEST OF DR. HAGEN FOR ENGLISH & ABNORMAL US. ULTRASOUND AND LABS IN REFERRAL. PATIENT STATES SHE FEELS LETHARGIC & HAS OCCASIONAL ABDOMINAL PAINVicksburg Get.[email or web address] Other Reason for visit Narrative* Diagnostic Procedure Only (Routine) - Closed Specialty Diagnoses / Procedures Referred By Norma kennedy Referred To Contact [facility] Diagnoses Liver lesion Procedures US ABD RT UPPER QUADRANT US ABDOMINAL [place] W/[place] [address] [place] [address] [place] [address] Referral ID Status Reason Start Date Expiration Date V isits Requested Visits Authorized [id number] Closed Auto-Generate d Referral 06/14/2022 07/14/2023 [address] [facility] for visit Narrative* Diagnostic Procedure Only (Routine) - Closed Specialty Diagnoses / Procedures Referred By Contac t Referred To Contact [facility] Diagnoses Elevated LFTs Procedures US ABD RT UPPER QUADRANT US ABDOMINAL REAL [place] W/[place] [address] [place] [address] [place] [address] Referral ID Status Reason Start Date Expiration Date V isits Requested Visits Authorized [id number] Closed Auto-Generate d Referral 11/24/2021 12/24/2022 [address] [facility] for visit Narrative* Diagnostic Procedure Only (Routine) - Closed Specialty Diagnoses / Procedures [facility] Referred To Contact [facility] Diagnoses Nausea Procedures NM GASTRIC EMPTYING SOLID GASTRIC [place] [address] [place] [address] Molecular [facility] [address] [place] [address] Referral ID Status Reason Start Date Expiration Date V isits Requested Visits Authorized [id number] Closed Auto-Generate d Referral 08/31/2022 09/30/2023 [address] [facility] for visit Narrative* Outpatient Procedure (Routine) - Closed Specialty Diagnoses / Procedures [facility] Referred To Contact [facility] Diagnoses PUD (peptic ulcer disease) Procedures EGD DIAGNOSTIC ESOPHAGOGASTRODUODENOSC OPY [place] [address] [place] [address] [facility] [place] [address] [place] [id number] Referral ID Status Reason Start Date Expiration Date V isits Requested Visits Authorized [id number] Closed Auto-Generate d Referral 06/30/2022 07/01/2023 [address] [facility] for visit Narrative* Outpatient Procedure (Routine) - Closed Specialty Diagnoses / Procedures Referred By Norma kennedy Referred To Contact [facility] Diagnoses Bilious vomiting with nausea Right sided abdominal pain Procedures EGD DIAGNOSTIC ESOPHAGOGASTRODUODENOSC OPY [place]ANS[place] [address] [place] [address] [facility] [place] [address] [place] [address] Referral ID Status Reason Start Date Expiration Date V isits Requested Visits Authorized [id number] Closed Auto-Generate d Referral 05/27/2022 05/27/2023 [address] [facility] for visit Narrative* Rehabilitation - Outpatient (Routine) - Authorized Specialty Diagnoses / Procedures Referred By Norma kennedy Referred To Contact Physical Therapy Diagnoses Cervical radiculopathy Procedures [place] OFFICE/OUTPATIENT NEW HIGH MDM 60 MINUTES Giovani Hagen MD [address] [facility] [address] [place] [address] Phone: tel: fax: Jumana Burgess, PT [address] [address] Phone: tel: fax: Referral ID Status Reason Start Date Expiration Date Visits Requested Visits Authorized [id number] Authorized Specialty Services Required 01/25/2024 10/21/2024 25 25 [facility] for visit Narrative* Rehabilitation - Outpatient (Routine) - Authorized Specialty Diagnoses / Procedures Referred By Norma kennedy Referred To Contact Physical Therapy Diagnoses Cervical radiculopathy Unspecified injury of right ankle, subsequent encounter Procedures VT OFFICE/OUTPATIENT NEW HIGH MDM 60 MINUTES Giovani Hagen MD [address] [facility] [address] [place] [address] Phone: tel: fax: Jumana Burgess, PT [address] [facility] [address] [place] [address] Phone: tel: fax: Referral ID Status Reason Start Date Expiration Date Visits Requested Visits Authorized [id number] Authorized Specialty Services Required 01/25/2024 10/21/2024 25 25 [facility] Summary Purpose Family History No Family History [...] By Norma kennedy Referred To Contact [facility] [place] Diagnoses Syncope, unspecified syncope type Procedures CARDIOVASCULAR MEDICINE OP FOLLOW UP APPT ORDER Solo Mora MD [address] [place] [address] [address] Referral ID Status Reason Start Date Expiration Date Visits Requested Visits Authorized [id number] Ref Not Required PCP Requested Referral 12/28/2023 12/27/2024 1 1 Specialty Diagnoses / Procedures Referred By Norma kennedy Referred To Contact [facility] Diagnoses Syncope, unspecified syncope type Procedures STRESS ECHO TREADMILL ECHO TTHRC R-T 2D W/WO M-MODE COMPLETE REST&ST Solo Mora MD [address] [place] [address] [place] [address] Referral ID Status Reason Start Date Expiration Date Visits Requested Visits Authorized [id number] Authorized Auto-Generat ed Referral 12/19/2023 12/18/2024 1 1 Specialty Diagnoses / Procedures Referred By Norma kennedy Referred To Contact CT IMAGING Diagnoses Bilious vomiting with nausea Right sided abdominal pain Nausea Procedures CT ABD/PEL WO IVCON CT ABD & PEL[place] [address] [place] [address] Ct Imaging [id number] Referral ID Status Reason Start Date Expiration Date V isits Requested Visits Authorized [id number] Closed Auto-Generate d Referral 05/27/2022 06/26/2023 1 1 Additional Source Comments INFORMATION SOURCE (unrecogn ized section and content) DATE CREATED AUTHOR 11/09/2018 [facility] DATE CREATED AUTHOR AUTHOR'S ORGANIZ ATION 08/23/2021 [facility] dical Specialist DATE CREATED AUTHOR AUTHOR'S ORGANIZ ATION 07/17/2022 [facility] DATE CREATED AUTHOR AUTHOR'S ORGANIZ ATION 10/29/2022 [facility] DATE CREATED AUTHOR AUTHOR'S ORGANIZ ATION 10/31/2022 [facility] DATE CREATED AUTHOR AUTHOR'S ORGANIZ ATION 03/22/2023 [facility] DATE CREATED AUTHOR AUTHOR'S ORGANIZ ATION 03/28/2023 [facility] DATE CREATED AUTHOR AUTHOR'S ORGANIZ ATION 12/29/2023 [facility] DATE CREATED AUTHOR AUTHOR'S ORGANIZ ATION 02/23/[address] [facility] DATE CREATED AUTHOR AUTHOR'S ORGANIZ ATION 03/02/2024 [facility] dical Specialists EPIC Care Teams (unrecognized sec tion and content) Team Status: Active Member Role Status Dates Giovani Hagen MD Primary Care Provider Active Team Status: Inactive Member Role Status Dates Erwin Hylton MD Attending Provider Active Giovani Hagen MD Primary Care Provider Active Disease Case Manager Rn Relationship Specialty Start Date End Date Giovani Hagenpedro [address] [facility] [address] [place] [address] PCP - General Family Medicine 03/27/19 Disease Case Manager Rn Relationship Specialty Start Date End Date Giovani Hagenalay [address] [facility] [address] [place] [address] PCP - General Family Medicine 03/27/19 Disease Case Manager Rn Relationship Specialty Start Date End Date Giovani Hagencby [address] [facility] [address] [place] [address] PCP - General Family Medicine 03/27/19 Disease Case Manager Rn Relationship Specialty Start Date End Date QuinterGiovani mcclellany [address] [place] [address] [place] [address] PCP - General Family Medicine 03/27/19 Disease Case Manager Rn Relationship Specialty Start Date End Date Giovani Hagenalay [address] [place] [address] PCP - General Family Medicine 03/27/19 Disease Case Manager Rn Relationship Specialty Start Date End Date Giovani Hageny [address] [place] [address] PCP - General Family Medicine 03/27/19 Disease Case Manager Rn Relationship Specialty Start Date End Date Giovani Hageny [address] [place] [address] PCP - General Family Medicine 03/27/19 Disease Case Manager Rn Relationship Specialty Start Date End Date Giovani Hageny [address] [place] [address] PCP - General Family Medicine 03/27/19 Disease Case Manager Rn Relationship Specialty Start Date End Date Giovani Hageny [address] [place] [address] PCP - General Family Medicine 03/27/19 Disease Case Manager Rn Relationship Specialty Start Date End Date Giovani Hagenalay [address] [place] [address] PCP - General Family Medicine 03/27/19 Disease Case Manager Rn Relationship Specialty Start Date End Date QuinterGiovani mcclellanalay [address] [place] [address] PCP - General Family Medicine 03/27/19 Disease Case Manager Rn Relationship Specialty Start Date End Date Giovani Hagen [address] [place] [address] PCP - General Family Medicine 03/27/19 Disease Case Manager Rn Relationship Specialty Start Date End Date Giovani Hagen [address] [place] [address] PCP - General Family Medicine 03/27/19 Disease Case Manager Rn Relationship Specialty Start Date End Date Giovani Hagen [address] [place] [address] PCP - General Family Medicine 03/27/19 Disease Case Manager Rn Relationship Specialty Start Date End Date Giovani Hagen MD [address] [place] [address] PCP - General Family Medicine 03/27/19 Disease Case Manager Rn Relationship Specialty Start Date End Date Giovani Hagen MD [address] [place] [address] PCP - General Family Medicine 03/27/19 Disease Case Manager Rn Relationship Specialty Start Date End Date Giovani Hagen MD [address] [place] [address] PCP - General Family Medicine 03/27/19 Disease Case Manager Rn Relationship Specialty Start Date End Date Giovani Hagen MD [address] [place] [address] PCP - General Family Medicine 03/27/19 Disease Case Manager Rn Relationship Specialty Start Date End Date Giovani Hagen MD [address] [place] [address] PCP - General Family Medicine 03/27/19 Disease Case Manager Rn Relationship Specialty Start Date End Date Giovani Hagen MD [address] [place] [address] PCP - General Family Medicine 03/27/19 Disease Case Manager Rn Relationship Specialty Start Date End Date Giovani Hagen MD [address] [place] [address] PCP - General Family Medicine 03/27/19 Disease Case Manager Rn Relationship Specialty Start Date End Date Giovani Hagen MD [address] [place] [address] PCP - General Family Medicine 03/27/19 Disease Case Manager Rn Relationship Specialty Start Date End Date Giovani Hagen MD [address] [place] [address] PCP - General Family Medicine 03/27/19 Disease Case Manager Rn Relationship Specialty Start Date End Date Giovani Hagen MD [address] [place] [address] PCP - General Family Medicine 03/27/19 Disease Case Manager Rn Relationship Specialty Start Date End Date Giovani Hagen MD [address] [place] [address] PCP - General Family Medicine 03/27/19 Disease Case Manager Rn Relationship Specialty Start Date End Date Giovani Hagen MD [address] [place] [address] PCP - General Family Medicine 03/27/19 Disease Case Manager Rn Relationship Specialty Start Date End Date Giovani Hagen MD [address] [place] [address] PCP - General Family Medicine 03/27/19 Disease Case Manager Rn Relationship Specialty Start Date End Date Giovani Hagen MD [address] [facility] [address] [place] [address] PCP - Medical [employer] 10/22/18 04/23/99 Giovani Hagen MD [address] [facility] [address] [place] [address] PCP - General Family Medicine 08/30/22 Disease Case Manager Rn Relationship Specialty Start Date End Date Giovani Hagen MD [address] [facility] [address] [place] [address] PCP - Medical [facility] 10/22/18 04/23/99 Giovani Hagen MD [address] [facility] [address] [place] [address] PCP - General [facility] Medicine 08/30/22 Disease Case Manager Rn Relationship Specialty Start Date End Date Giovani Hagen MD [address] [facility] [address] [place] [address] PCP - Medical [facility] 10/22/18 04/23/99 Giovani Hagen MD [address] [facility] [address] [place] [address] PCP - General Family Medicine 08/30/22 Disease Case Manager Rn Relationship Specialty Start Date End Date Giovani Hagen MD [address] [facility] [address] [place] [address] PCP - Medical [employer] 10/22/18 04/23/99 Giovani Hagen MD [address] [facility] [address] [place] [address] PCP - General Family Medicine 08/30/22 Disease Case Manager Rn Relationship Specialty Start Date End Date Giovani Hagen MD [address] [facility] [address] [place] [address] PCP - Medical [employer] 10/22/18 04/23/99 Giovani Hagen MD [address] [facility] [address] [place] [address] PCP - General Family Medicine 08/30/22 Disease Case Manager Rn Relationship Specialty Start Date End Date Giovani Hagen MD [address] [facility] [address] [place] [address] PCP - Medical [facility] 10/22/18 04/23/99 Giovani Hagen MD [address] [facility] [address] [place] [address] PCP - General [facility] Medicine 08/30/22 Disease Case Manager Rn Relationship Specialty Start Date End Date Giovani Hagen MD [address] [facility] [address] [place] [address] PCP - Medical [facility] 10/22/18 04/23/99 Giovani Hagen MD [address] [facility] [address] [place] [address] PCP - General Family Medicine 08/30/22 Disease Case Manager Rn Relationship Specialty Start Date End Date Giovani Hagen MD [address] [facility] [address] [place] [address] PCP - Medical [employer] 10/22/18 04/23/99 Giovani Hagen MD [address] [facility] [address] [place] [address] PCP - General Family Medicine 08/30/22 Disease Case Manager Rn Relationship Specialty Start Date End Date Giovani Hagen MD [address] [facility] [address] [place] [address] PCP - Medical [employer] 10/22/18 04/23/99 Giovani Hagen MD [address] [facility] [address] [place] [address] PCP - General Family Medicine 08/30/22 Disease Case Manager Rn Relationship Specialty Start Date End Date Giovani Hagen MD [address] [facility] [address] [place] [address] PCP - Medical [facility] 10/22/18 04/23/99 Giovani Hagen MD [address] [facility] [address] [place] [address] PCP - General [facility] Medicine 08/30/22 Disease Case Manager Rn Relationship Specialty Start Date End Date Giovani Hagen MD [address] [facility] [address] [place] [address] PCP - Medical [facility] 10/22/18 04/23/99 Giovani Hagen MD [address] [facility] [address] [place] [address] PCP - General Family Medicine 08/30/22 Disease Case Manager Rn Relationship Specialty Start Date End Date Giovani Hagen MD [address] [facility] [address] [place] [address] PCP - Medical [employer] 10/22/18 04/23/99 Giovani Hagen MD [address] [facility] [address] [place] [address] PCP - General Family Medicine 08/30/22 Disease Case Manager Rn Relationship Specialty Start Date End Date Giovani Hagen MD [address] [facility] [address] [place] [address] PCP - Medical [employer] 10/22/18 04/23/99 Giovani Hagen MD [address] [facility] [address] [place] [address] PCP - General Family Medicine 08/30/22 Disease Case Manager Rn Relationship Specialty Start Date End Date Giovani Hagen MD [address] [facility] [address] [place] [address] PCP - Medical [employer] 10/22/18 04/23/99 Giovani Hagen MD [address] [facility] [address] [place] [address] PCP - General Family Medicine 08/30/22 Source Comments (unrecognize d section and content) In the event this informatio n is protected by the Federal Confidentiality of Alcohol and Drug Abuse Patient Records regulations: The Federal rules restrict any use of the information to criminally investigate or prosecute any alcohol or drug abuse patient.[facility] Hospital[facility] the event this information is protected by the Federal Confidentiality of Alcohol and Drug Abuse Patient Records regulations: The Federal rules restrict any use of the information to criminally investigate or prosecute any alcohol or drug abuse patient.[facility] HospitalIn the event this information is protected by the Federal Confidentiality of Alcohol and Drug Abuse Patient Records regulations: The Federal rules restrict any use of the information to criminally investigate or prosecute any alcohol or drug abuse patient.[facility] HospitalIn the event this information is protected by the Federal Confidentiality of Alcohol and Drug Abuse Patient Records regulations: The Federal rules restrict any use of the information to criminally investigate or prosecute any alcohol or drug abuse patient.[facility] HospitalIn the event this information is protected by the Federal Confidentiality of Alcohol and Drug Abuse Patient Records regulations: The Federal rules restrict any use of the information to criminally investigate or prosecute any alcohol or drug abuse patient.[facility] HospitalIn the event this information is protected by the Federal Confidentiality of Alcohol and Drug Abuse Patient Records regulations: The Federal rules restrict any use of the information to criminally investigate or prosecute any alcohol or drug abuse patient.[facility] HospitalIn the event this information is protected by the Federal Confidentiality of Alcohol and Drug Abuse Patient Records regulations: The Federal rules restrict any use of the information to criminally investigate or prosecute any alcohol or drug abuse patient.[facility] HospitalIn the event this information is protected by the Federal Confidentiality of Alcohol and Drug Abuse Patient Records regulations: The Federal rules restrict any use of the information to criminally investigate or prosecute any alcohol or drug abuse patient.[facility] HospitalIn the event this information is protected by the Federal Confidentiality of Alcohol and Drug Abuse Patient Records regulations: The Federal rules restrict any use of the information to criminally investigate or prosecute any alcohol or drug abuse patient.[facility] HospitalIn the event this information is protected by the Federal Confidentiality of Alcohol and Drug Abuse Patient Records regulations: The Federal rules restrict any use of the information to criminally investigate or prosecute any alcohol or drug abuse patient.[facility] HospitalIn the event this information is protected by the Federal Confidentiality of Alcohol and Drug Abuse Patient Records regulations: The Federal rules restrict any use of the information to criminally investigate or prosecute any alcohol or drug abuse patient.[facility] HospitalIn the event this information is protected by the Federal Confidentiality of Alcohol and Drug Abuse Patient Records regulations: The Federal rules restrict any use of the information to criminally investigate or prosecute any alcohol or drug abuse patient.[facility] HospitalIn the event this information is protected by the Federal Confidentiality of Alcohol and Drug Abuse Patient Records regulations: The Federal rules restrict any use of the information to criminally investigate or prosecute any alcohol or drug abuse patient.[facility] HospitalIn the event this information is protected by the Federal Confidentiality of Alcohol and Drug Abuse Patient Records regulations: The Federal rules restrict any use of the information to criminally investigate or prosecute any alcohol or drug abuse patient.[facility] HospitalIn the event this information is protected by the Federal Confidentiality of Alcohol and Drug Abuse Patient Records regulations: The Federal rules restrict any use of the information to criminally investigate or prosecute any alcohol or drug abuse patient.[facility] HospitalIn the event this information is protected by the Federal Confidentiality of Alcohol and Drug Abuse Patient Records regulations: The Federal rules restrict any use of the information to criminally investigate or prosecute any alcohol or drug abuse patient.[facility] HospitalIn the event this information is protected by the Federal Confidentiality of Alcohol and Drug Abuse Patient Records regulations: The Federal rules restrict any use of the information to criminally investigate or prosecute any alcohol or drug abuse patient.[facility] HospitalIn the event this information is protected by the Federal Confidentiality of Alcohol and Drug Abuse Patient Records regulations: The Federal rules restrict any use of the information to criminally investigate or prosecute any alcohol or drug abuse patient.[facility] HospitalIn the event this information is protected by the Federal Confidentiality of Alcohol and Drug Abuse Patient Records regulations: The Federal rules restrict any use of the information to criminally investigate or prosecute any alcohol or drug abuse patient.[facility] HospitalIn the event this information is protected by the Federal Confidentiality of Alcohol and Drug Abuse Patient Records regulations: The Federal rules restrict any use of the information to criminally investigate or prosecute any alcohol or drug abuse patient.[facility] HospitalIn the event this information is protected by the Federal Confidentiality of Alcohol and Drug Abuse Patient Records regulations: The Federal rules restrict any use of the information to criminally investigate or prosecute any alcohol or drug abuse patient.[facility] HospitalIn the event this information is protected by the Federal Confidentiality of Alcohol and Drug Abuse Patient Records regulations: The Federal rules restrict any use of the information to criminally investigate or prosecute any alcohol or drug abuse patient.[facility] HospitalIn the event this information is protected by the Federal Confidentiality of Alcohol and Drug Abuse Patient Records regulations: The Federal rules restrict any use of the information to criminally investigate or prosecute any alcohol or drug abuse patient.[facility] HospitalIn the event this information is protected by the Federal Confidentiality of Alcohol and Drug Abuse Patient Records regulations: The Federal rules restrict any use of the information to criminally investigate or prosecute any alcohol or drug abuse patient.[facility] HospitalIn the event this information is protected by the Federal Confidentiality of Alcohol and Drug Abuse Patient Records regulations: The Federal rules restrict any use of the information to criminally investigate or prosecute any alcohol or drug abuse patient.[facility] HospitalIn the event this information is protected by the Federal Confidentiality of Alcohol and Drug Abuse Patient Records regulations: The Federal rules restrict any use of the information to criminally investigate or prosecute any alcohol or drug abuse patient.[facility] HospitalIn the event this information is protected by the Federal Confidentiality of Alcohol and Drug Abuse Patient Records regulations: The Federal rules restrict any use of the information to criminally investigate or prosecute any alcohol or drug abuse patient.[facility] HospitalIn the event this information is protected by the Federal Confidentiality of Alcohol and Drug Abuse Patient Records regulations: The Federal rules restrict any use of the information to criminally investigate or prosecute any alcohol or drug abuse patient.[facility] HospitalIn the event this information is protected by the Federal Confidentiality of Alcohol and Drug Abuse Patient Records regulations: The Federal rules restrict any use of the information to criminally investigate or prosecute any alcohol or drug abuse patient.[facility] HospitalIn the event this information is protected by the Federal Confidentiality of Alcohol and Drug Abuse Patient Records regulations: The Federal rules restrict any use of the information to criminally investigate or prosecute any alcohol or drug abuse patient.[facility] HospitalIn the event this information is protected by the Federal Confidentiality of Alcohol and Drug Abuse Patient Records regulations: The Federal rules restrict any use of the information to criminally investigate or prosecute any alcohol or drug abuse patient.[facility] HospitalIn the event this information is protected by the Federal Confidentiality of Alcohol and Drug Abuse Patient Records regulations: The Federal rules restrict any use of the information to criminally investigate or prosecute any alcohol or drug abuse patient.[facility] Reason for Visit (unrecogniz ed section [...] & PEL[place] W/[place] [address] [place] [address] [place] [address] Referral ID Status Reason Start Date Expiration Date V isits Requested Visits Authorized [id number] Closed Auto-Generate d Referral 05/27/2022 06/26/2023 1 1 Reason Comments Patient Update Referral & Records a re in Care Everywhere Reason Comments Event ZIO PATCH Reason Onset Date Comments Palpitations 12/28/2023 Syncope 12/28/2023 Reason Onset Date Comments PT Initial Eval 01/29/2024 Tried to contact to schedule PT Eval for cervical radiculopathy; but had to lm requesting call back. Call Back 01/29/2024 She contacted an d we scheduled PT Eval 02/04 w/ Jumana Burgess PT. Reason Onset Date Comments Lab results 12/18/2023 Reason Comments Ankle Pain Reason Onset Date Comments Med Refill 02/20/2024 Goals (unrecognized section and content) Goals may [...] BE BASED ON THE PRIMARY CLINICAL RECORDS. [employer] [facility]. provides no warranty or guarantee of the accuracy or completeness of information in this document.
== END 2024-03-04 08:01 | disposition home or self-care (01) ==
LOC: EC 08:01
PROVIDERS: PCP Family Medicine; Visit Provider Orthopaedic Surgery
DX: S93.491D Sprain of other ligament of right ankle, subsequent encounter (principal); S82.51XA Displaced fracture of medial malleolus of right tibia, initial encounter for closed fracture
CPT/HCPCS: 73610

== ENCOUNTER 2024-03-14 14:47 | Outpatient (OUT) | payer OTHER, SELFPAY ==
--- NOTE | 2024-03-14 14:51 | MR_ITS ---
The [address] [address] Patient Name: ORION HARPER MRN: [facility]:[id number] date: 1990 Sex: F Assigned Patient Location: MRI Current Patient Location: Accession/Order Number: [id number] Exam Date: 03/14/2024 15:04 Report Date: 03/17/2024 09:08 At the request of: LAURIE NAVAS Procedure: MR ankle RT wo con HISTORY: Right ankle pain since an injury on 01/10/2024. Pain and swelling along the medial and lateral aspect of the ankle. Sprain of talofibular ligament. MR ankle RT wo con: 03/14/2024 3:04 PM EST COMPARISON: Radiographs right ankle 03/04/2024 and radiographs right foot and ankle 01/10/2024. TECHNIQUE: Multiplanar, multisequence MRI images of the ankle were obtained without contrast. FINDINGS: LIGAMENTS: The anterior talofibular ligament appears grossly intact. However, there is an ovoid well-corticated 6 mm ossific focus again seen along the anteroinferior aspect of the lateral malleolus at the expected attachment of the anterior talofibular ligament as seen on the prior radiographs. The calcaneofibular ligament, posterior talofibular ligament, and distal tibiofibular ligaments appear within normal limits. The deltoid ligament complex appears moderately thickened and of intermediate signal intensity on the proton density fat-saturated sequence. The flexor retinaculum along the medial aspect of the medial malleolus appears moderately thickened and of intermediate signal intensity with a small amount of adjacent soft tissue edema. TENDONS: There is evidence of a moderate grade longitudinal partial-thickness tear involving the posterior aspect of the inframalleolar portion of the peroneus brevis tendon spanning approximately 2.5 cm in length as best seen on the axial oblique proton density fat-saturated images. The other tendons of the ankle appear within normal limits. There is a small amount of fluid within the retromalleolar and inframalleolar portion of the posterior tibialis tendon sheath. SINUS TARSI AND TARSAL TUNNEL: No space-occupying mass is seen in the tarsal tunnel or the sinus tarsi. BONES AND JOINTS: The bone marrow signal intensity is age appropriate. No unstable osteochondral defect of the tibiotalar joint is identified. There is a small tibiotalar joint effusion. There is a small area of decreased T1 and increased STIR signal intensity within the subchondral bone of the medial talar dome. This measures approximately 4 x 7 mm in transverse and AP dimension. No overlying chondral abnormality is seen. There is a moderate amount of bone marrow edema involving the medial aspect of the body and neck of the talus. There is also a small amount of bone marrow edema within the posteromedial aspect of the tibial plafond. There is a small amount of fluid within a joint recess posterior to the posterior subtalar joint. PLANTAR FASCIA: There is no abnormal thickening or abnormal signal intensity of the plantar fascia and there is no surrounding soft tissue edema to suggest plantar fasciitis. MR/MR ankle RT wo con IMPRESSION: 1. There are MRI findings compatible with a moderate grade sprain or avulsion injury of the flexor retinaculum from the medial malleolus with adjacent soft tissue edema in this region. Therefore, the small linear focus of ossification projecting along the medial aspect of the medial malleolus on the prior radiographs is most likely secondary to either a small avulsion fracture or heterotopic ossification in this region. 2. Probable subacute grade 2 sprain of the deltoid ligament complex. The other ligaments of the ankle including the anterior talofibular ligament appear grossly intact. However, there is a 6 mm posttraumatic ossicle again seen along the anteroinferior aspect of the lateral malleolus at the expected attachment of the anterior talofibular ligament compatible with the sequela of remote trauma to this region. 3. There is evidence of a probable low-grade 4 x 7 mm osteochondral injury of the medial talar dome. There are also bone contusions involving the medial aspect of the body and neck of the talus and a small bone contusion of the posteromedial aspect of the tibial plafond. There is an associated small tibiotalar joint effusion. 4. There is a moderate grade longitudinal partial-thickness tear of the posterior aspect of the inframalleolar portion of the peroneus brevis tendon spanning approximately 2.5 cm in length. The other tendons of the ankle appear within normal limits. Electronically authenticated by: KARISSA SAUCEDO Date: 03/17/2024 09:08
== END 2024-03-14 14:48 | disposition home or self-care (01) ==
LOC: MRI 14:47
PROVIDERS: PCP Family Medicine; Visit Provider Orthopaedic Surgery
DX: S93.491A Sprain of other ligament of right ankle, initial encounter (principal); M25.471 Effusion, right ankle
CPT/HCPCS: 73721

== ENCOUNTER 2024-03-17 20:11 | Emergency (ER) | payer OTHER, SELFPAY ==
[2024-03-17 20:17] VITALS: BP 127/87; PULSE 94; TEMP 37.1; O2SAT 99; BMI 34.2
--- OUTSIDE RECORDS SUMMARY | 2024-03-17 20:21 | XMS_ITS | CCD ---
Author Organization [facility] Care Team Providers Care Mural Artist Name Role Phone SHIVANI MONTEIRO Referring Unavailable [...] Unavailable Jackson Adkins Consulting Unavailable POPPY ., AYLEEN Consulting Unavailable REINECK, DR RONALD Mcgovern Attending [...] Consulting Unavailable MD Erwin Hylton Attending Provider [phone] MD Giovani Hagen Primary Care Provider DAKHIL, NOMA Ref[facility] Un[facility] DAKHIL, NOMA Referring Unavailable [facility] Unavailable DAKHIL, NOMA Referring Unavailable [facility] Unavailable MARIA DOLORES COREY Referring Unavailable [facility] Unavailable Asaad, Imad Admitting Unavailable Asaad, Imad Attending [facility] Asaad, Imad Admitting Unavailable Asaad, Imad Attending Un[facility] Unavailable Hieu [facility] Provider [phone] BLOODMARY Admitting Unavailable BLOOD, MARY Culver Attending Unavailable JACKSON MONTENEGRO Consulting Unavailable SONIYA PATEL Referring [facility] Unavailable MAKENNA AMAYA Consulting Unavailable Hieu MD [facility] Primary Care Provider [phone] Madhuri MISHRA Attending Unavailable BHAVESH DEJESUS Attending Unavailable Giovani Hagen MD Unavailable Giovani Hagen MD Primary Care Provider SOLO MORA Referring Unavailable HIEU, RUGEN MABALAY Primary Care Unavailable SOLO MORA Attending Unavailable HIEU, RUGEN MABALAY Primary Care Unavailable HIEU, RUGEN MABALAY Primary Care Unavailable HIEU, RUGBETY M Attending Unavailable HIEU, GIOVANI M Attending Unavailable CADE WILCOX Attending Unavailable HIEU, GIOVANI Bob Attending Unavailable HIEUGIOVANI Attending Unavailable HIEU, GIOVANI Bob Attending Unavailable AKUA DU Attending Unavailable HIEU, GIOVANI Bob Attending Unavailable DARWIN STARR Attending Unavailable BLACKSTONJUMANA Attending Unavailable HIEU, RUGEN M Referring Unavailable HIEUGIOVANI M Attending Unavailable ARUN HERNADEZ Attending Unavailable HIEU, RUGEN M Referring Unavailable JUMANA BURGESS Attending Unavailable HIEU, RUGEN M Referring Unavailable BRARUN PLATA Attending Unavailable HIEU, RUGEN M Referring Unavailable KENYA SANCHEZ Attending Unavailable HIEU, KIRANEN M Referring Unavailable KENYA SANCHEZ Attending Unavailable HIEU, RUGEN M Referring Unavailable BRINKARUN Attending Unavailable HIEU, RUGEN M Referring Unavailable BRINKARUN Attending Unavailable HIEU, RUGEN M Referring Unavailable Allergies Allergy Classification Reported Allergen(s) Allergy Type Date of Onset Reaction(s) Facility Iodine (and Iodine containting drugs) (2 sources) Iodine Drug Allergy 04-11-20 19 Swelling, Itching [facility] Iohexol (2 sources) Iohexol Drug Allergy 04-12-20 19 Itching [facility] (20 sources) Iodine; Translations: [IODINE] Drug Allergy 04-11-20 19 Swelling, Itching [facility] (20 sources) Iohexol; Translations: [IOHEXOL] Drug Allergy 04-12-20 19 Itching [facility] (1 source) Cat Propensity to adverse reactions anaphylaxis [facility] Other (1 source) tree nut, unspecified Propensity to adverse reactions anaphylaxis [facility] Other (1 source) peanut allergenic extract Drug Allergy [facility] (1 source) Cat/Feline Product Derivatives Drug allergy (disorder) 01-08-20 13 [facility] (1 source) No Known Medication Allergies; Translations: [No Known Medication Allergies] Propensity to adverse reactions (disorder) [facility] (20 sources) Cat Hair Extract Allergy to substance 12-01-19 23 Anaphylaxis [facility] (20 sources) Iodinated Contrast Media Drug Allergy 12-01-19 23 Hives [facility] (20 sources) Prednisone & Diphenhydramine Drug Allergy 10-03-19 24 [facility] Medications Current Medications Medication Drug Class(es) Dates Sig (Normalized) Sig (Original) acetaminophen 1000 mg oral tablet (3 sources) Start: 06-12-2018 take 1000 mg by mouth once daily as needed for pain Tylenol 1,000 mg, Oral, Daily, PRN as needed for pain, Refills(s) 0 Start Date: 06/12/18 Status: Ordered [id number] 200 actuat albuterol 0.09 mg/actuat metered dose [...] tablet (20 sources) Benzodiazepine Start: 01-09-2024 End: 04-06-2024 take 1 tablet by mouth in the morning ALPRAZolam (Xanax) 0.5 MG tablet Indications: Anxiety , Bipolar disorder, in partial remission, most recent episode manic (CMS/HCC) Take 1 tablet (0.5 mg) by mouth in the morning and in the evening 60 tablet 03/07/2024 04/06/2024 Active Start: 02-18-2019 take 0.25 mg by [...] Nervous System Stimulant Start: 01-09-20 End: 03-21-20 24 take 1 capsule by mouth once daily amphetamine-dextroam phetamine XR (Adderall XR) 30 MG 24 hr capsule Indications: Attention deficit hyperactivity disorder (ADHD), predominantly inattentive type (CMS/HCC) Take 1 capsule (30 mg) by mouth Daily Do not crush or chew. 30 capsule 02/20/2024 03/21/2024 Active take 1 capsule by mo ohh once daily amphetamine-dextroamphetamine XR (ADDERA LL XR) [...] capsules by mouth at bedtime Bis Subcit Lcz-Gstjk-Jcrxrxvr (PYLERA) 140-125-125 mg per capsule Take 3 [...] in partial remission, most recent episode manic ([facility]) TAKE 1 CAPSULE BY MOUTH EVERY DAY 30 capsule 5 08/14/2023 Active Start: 05-01-2019 take 1 capsule by [facility] once daily Vraylar 1.5 mg oral capsule 1.5 mg = 1 cap(s), Oral, Daily Start Date: 05/01/19 Status: Ordered take 1 capsule by [facility] once daily cariprazine (VRAYLAR) 3 mg cap Take by mouth once daily. 0 Active Vraylar Active Comment on above: Take by mouth once d aily. 1 capsule. cephalexin 250 mg oral tablet (3 sources) Cephalosporin Antibacterial Start: 12-28-2023 Keflex 250 mg Cap See Instructions, 1 cap po after intercourse to prevent UTI, # 20 cap(s), Refills(s) 2, Pharmacy: [facility]/pharmacy #[id number], 158, cm, 12/28/23 15:24:00 EDT, Height/Length [...] days., # 50 cap(s), Refills(s) 0, Pharmacy: [facility]/pharmacy #[id number], 158, cm, 06/29/22 8:19:00 EST, Height/Length Dosing, 84.8, kg, 06/29/22 8:19:00 EST, Weigh... Start Date: 06/29/22 Status: Ordered clobetasol propionate 0.5 mg/ml topical cream (20 sources) Corticosteroid Start: 01-22-2024 End: 03-22-2024 clobetasol (Temovate) 0.05 % cream Indications: Dyspareunia in female , Urethral pain Apply 1 application topically Daily Apply pea-size amount daily for 30 days and then every other day for another 30 days. 60 g 1 01/22/2024 03/22/2024 Active 0.3 ml EPINEPHrine 1 mg/ml prefilled syringe (20 sources) alpha-Adrenergic Agonist, beta-Adrenergic Agonist, Catecholamine Start: 04-18-2023 EPINEPHrine (Adrenalin) 0.3 MG/0.3ML injection Indications: Anaphylaxis, sequela Inject 0.3 mL (0.3 mg) into the shoulder, thigh, or buttocks 1 (one) time for 1 dose 1 each 2 04/18/2023 Active EpiPen prn Activ e escitalopram 20 mg oral tablet (20 sources) Serotonin Reuptake Inhibitor Start: 11-09-2023 take 1 tablet by mouth once daily in the morning escitalopram (Lexapro) 20 MG tablet Indications: Bipolar disorder, in partial remission, most recent episode manic (CMS/HCC) TAKE 1 TABLET BY MOUTH EVERY DAY IN THE MORNING 30 tablet 2 11/09/2023 Active 30 actuat fluticasone furoate 0.1 mg/actuat / umeclidinium 0.0625 mg/actuat / vilanterol 0.025 mg/actuat dry powder inhaler (20 sources) Anticholinergic, Corticosteroid, beta2-Adrenergic Agonist Start: 05-24-2022 take 1 puff(s) by inhalation once daily Fluticasone-Umecli din-Vilant 100-62.5-25 MCG/ACT aerosol powder INHALE 1 PUFF INTO THE LUNGS EVERY DAY FOR 30 DAYS 05/24/2022 Active Start: 05-24-2022 End: 11-02-2022 TRELEGY ELLIPTA 100-62.5-25 mcg inhalation powder 05/24/2022 11/02/2022 Discontinued furosemide 20 mg oral tablet (18 sources) Loop Diuretic Start: 02-06-2024 End: 03-07-2024 take 1 tablet by mouth once daily furosemide (Lasix) 20 MG tablet Indications: Localized edema Take 1 tablet (20 mg) by mouth Daily 30 tablet 02/06/2024 Active ibuprofen 800 mg oral tablet (2 sources) Nonsteroidal Anti-inflammatory Drug Start: 06-12-2018 take 800 mg by mouth once daily as needed for pain ibuprofen 800 mg, Oral, Daily, PRN as needed for pain, Refills(s) 0 Start Date: 06/12/18 Status: Ordered meloxicam 15 mg oral tablet (9 sources) Nonsteroidal Anti-inflammatory Drug Start: 02-21-2024 take 1 tablet by mouth once daily meloxicam (Mobic) 15 MG tablet Indications: Acute right ankle pain Take 1 tablet (15 mg) by mouth Daily 30 tablet 2 02/21/2024 Active Tramadol (3 sources) Opioid Agonist Start: [...] doxepin HCl (D OXEPIN ORAL) estrogens, conjugated (long-term) 0.625 mg/ml vaginal cream (20 sources) Estrogen Start: 02-06-2024 End: 03-07-2024 Estrogens Conjugated (Premarin) 0.625 MG/GM cream Indications: Dyspareunia in female Insert 0.5 Applicatorfuls into the vagina at bedtime 30 g 3 02/06/2024 03/07/2024 Start: 05-26-2022 End: 11-02-2022 PREMARIN vaginal cream 05/2611/02/2022 Discontinued Premarin 0.625 M G/GM as directed Vaginal 3 TIMES A WEEK Active Ethinyl Estradiol / norgestimate (16 sources) Progestin, [...] 12/19/2023 Discontinued (Other) take 1 capsule by [facility] every twenty-four hours Vyvanse 50 MG 1 capsule in the morning Orally Once a day Active Comment on above: Take 10 mg by mouth once daily. 50/50 release 24 hr methylphenidate hydrochloride 20 mg extended release oral capsule (16 sources) Central Nervous System Stimulant Start: End: 07-12-2 023 take 1 capsule by mouth once daily in the morning methylphenidate LA (RITALIN LA) 20 mg 24 hr capsule TAKE 1 CAPSULE BY MOUTH EVERY DAY IN THE MORNING FOR 30 DAYS 03/28/2022 11/02/2022 Discontinued Comment on above: TAKE 1 CAPSULE BY [facility] EVERY DAY IN THE MORNING FOR 30 DAYS Naproxen (1 source) Nonsteroidal Anti-inflammatory Drug Naproxen Not-Taking 2 ml ondansetron 2 mg/ml injection (19 sources) Serotonin-3 Receptor Antagonist Start: 023 End: 023 4 mg, INTRAVENOUS, ONCE, 1 dose, On [...] Comment on above: [facility]. Take 1 [facility] daily before meals for 10 days. Take 1 tablet by vanna th twice daily before meals for 14 days. phentermine hydrochloride 37.5 mg oral tablet (20 sources) Sympathomimetic Amine Anorectic Start: End: take 1 tablet by mouth before mealtime phentermine (Adipex-P) 37.5 MG tablet Indications: Obesity (BMI 35.0-39.9 without comorbidity) Take 1 tablet (37.5 mg) by mouth in the morning. Take before meals. 30 tablet 02/06/2024 03/07/2024 Discontinued (Reorder) prucalopride 2 mg oral tablet (12 sources) Start: End: take 1 tablet by mouth once daily prucalopride 2 mg tablet (MOTEGRITY) Indications: Chronic idiopathic constipation Take 1 tablet (2 mg) by mouth once daily. 30 tablet 6 10/17/2022 12/19/2023 Discontinued (Other) Comment on above: Take 1 tablet (2 mg) by mouth once daily. sucralfate 1000 mg oral tablet (2 sources) Aluminum Complex Start: End: take 1 tablet by mouth twice daily before mealtime sucralfate (CARAFATE) 1 gram tablet Take 1 tablet by mouth twice daily before meals. 60 tablet 06/30/2022 07/30/2022 Comment on above: Take 1 tablet by vanna th twice daily before meals. tenapanor 50 mg oral tablet (8 sources) Start: End: take 1 tablet by mouth [...] Chronic Attention-deficit, conduct, and disruptive behavior disorders (20 sources) Attention deficit hyperactivity disorder, predominantly inattentive type; Translations: [Attention-deficit hyperactivity disorder, predominantly inattentive type] Onset: 3 09-23-2022 Chronic Coronary atherosclerosis and other heart disease (20 sources) Atherosclerosis of coronary artery without angina pectoris; Translations: [Atherosclerotic heart disease of [place] coronary artery without angina pectoris] Onset: 2 12-12-2022 Chronic Disorders of lipid metabolism (20 sources) Hypercholesterolemia; Translations: [Pure hypercholesterolemia, unspecified] Onset: 2 12-12-2022 Chronic Diverticulosis and diverticulitis (20 sources) Diverticulosis of colon; Translations: [Diverticulosis of large intestine without perforation or abscess without bleeding] Onset: 3 Resolved: 3 09-23-2022 Chronic Epilepsy; convulsions (20 sources) Idiopathic generalized epilepsy; Translations: [Generalized idiopathic epilepsy and epileptic syndromes, not intractable, without status epilepticus] Onset: 0 12-12-2022 Chronic Esophageal disorders (20 sources) Gastroesophageal reflux disease without esophagitis; Translations: [Gastro-esophageal reflux disease without esophagitis] Onset: 0 12-12-2022 Chronic Gastroduodenal ulcer (except hemorrhage) (2 sources) Peptic ulcer; Translations: [Peptic ulcer, site unspecified, unspecified as acute or chronic, without hemorrhage or perforation] 08-31-2022 Chronic Hepatitis (20 sources) Nonalcoholic steatohepatitis; Translations: [Nonalcoholic steatohepatitis (ENGLISH)] Onset: 3 Chronic Immunizations and screening for infectious disease (5 sources) Encounter for screening for human papillomavirus (HPV); Translations: [Encounter for screening for infections with a predominantly sexual mode of transmission] Onset: 2 Episodic Miscellaneous mental health disorders (20 sources) Hypersexuality state; Translations: [Other sexual dysfunction not due to a substance or known physiological condition] Onset: 3 09-23-2022 Chronic Mood disorders (20 sources) Major depressive disorder, single episode, unspecified; Translations: [Bipolar disorder, most recent episode manic] Onset: 2 09-23-2022 Chronic Nausea and vomiting (8 sources) Bilious vomiting; Translations: [Bilious vomiting] Onset: 3 Episodic Nutritional deficiencies (20 sources) Vitamin D deficiency; Translations: [Vitamin D deficiency, unspecified] Onset: 0 12-12-2022 Chronic Occlusion or stenosis of precerebral arteries (20 sources) Bilateral atherosclerosis of carotid arteries; Translations: [Occlusion and stenosis of bilateral carotid arteries] Onset: 1 12-12-2022 Chronic Osteoarthritis (20 sources) Osteoarthritis of knee; Translations: [Osteoarthritis of knee, unspecified] Onset: 0 12-12-2022 Chronic Other female genital disorders (4 sources) Unspecified dyspareunia; Translations: [UNSPECIFIED DYSPAREUNIA] Onset: 2 Chronic Other gastrointestinal disorders (20 sources) Irritable bowel syndrome characterized by constipation; Translations: [Irritable bowel syndrome with constipation] Onset: 3 11-02-2022 Chronic Other gastrointestinal disorders (1 source) History of diverticulitis; Translations: [Personal history of other diseases of the digestive system] Episodic Other injuries and conditions due to external causes (20 sources) Injury of right ankle; Translations: [Unspecified [...] of breath] Episodic Other nervous system disorders (20 sources) Poor concentration; Translations: [Attention and concentration deficit] Onset: 3 09-23-2022 Chronic Other nutritional; endocrine; and metabolic disorders (20 sources) Disorder of carbohydrate metabolism; Translations: [Other disorders of intestinal carbohydrate absorption] Onset: 4 10-03-2023 Chronic Other nutritional; endocrine; and metabolic disorders (20 sources) Body mass index 30+ - obesity; Translations: [Obesity, unspecified] Onset: 4 02-06-2024 Chronic Peripheral and visceral atherosclerosis (20 sources) Atherosclerosis of aorta; Translations: [Atherosclerosis of aorta] Onset: 1 12-12-2022 Chronic Residual codes; unclassified (20 sources) Localized edema; Translations: [Localized edema] Onset: 4 02-06-2024 Episodic Spondylosis; intervertebral disc disorders; other back problems (20 sources) Inflammation of sacroiliac joint; Translations: [Sacroiliitis, not elsewhere classified] Onset: 3 09-23-2022 Chronic Spondylosis; intervertebral disc disorders; other back problems (20 sources) Cervical radiculopathy; Translations: [Radiculopathy, cervical region] Onset: 3 Resolved: 3 12-26-2023 Episodic Syncope (3 sources) Syncope and collapse; Translations: [Syncope and collapse] 12-19-2023 Episodic Thyroid disorders (20 sources) Goiter; Translations: [Nontoxic goiter, unspecified] Onset: 3 09-23-2022 Chronic Unclassified (3 sources) LOW BACK PAIN, UNSPECIFIED; Translations: [LOW BACK PAIN, UNSPECIFIED] Onset: 2 Unclassified (20 sources) Patient on antidepressant monitoring plan Onset: 4 05-08-2023 Unclassified (20 sources) Baseline PHQ-9 Onset: 4 05-08-2023 Past or Other Problems Problem Classification Problem Date Documented Da te Episodic/Chronic Allergic reactions (20 sources) Anaphylaxis; Translations: [Anaphylactic shock, unspecified, initial encounter] Onset: 04-18-2023 04-18-2023 Episodic Biliary tract disease (20 sources) Cholelithiasis without obstruction; Translations: [Calculus of gallbladder without cholecystitis without obstruction] Onset: 03-23-2023 04-18-2023 Episodic Calculus of urinary tract (20 sources) Kidney stone; Translations: [Calculus of kidney] Onset: 06-30-2022 06-29-2022 Episodic Conditions associated with dizziness or vertigo (20 sources) Dizziness; Translations: [Dizziness and giddiness] Onset: 12-13-2022 12-13-2022 Episodic Diabetes mellitus without complication (20 sources) Hyperglycemia; Translations: [Hyperglycemia, unspecified] Onset: 09-23-2022 09-23-2022 Episodic E Codes: Fall (1 source) Unspecified fall, initial encounter; Translations: [UNSPECIFIED FALL INITIAL ENCOUNTER] Onset: 09-10-2021 Episodic Genitourinary symptoms and ill-defined conditions (20 sources) Dysuria; Translations: [Increased frequency of urination] Onset: 12-12-2022 Resolved: 02-06-2023 05-01-2019 Episodic Headache; including migraine (20 sources) Tension-type headache; Translations: [Tension-type headache, unspecified, not intractable] Onset: 09-23-2022 Resolved: 02-06-2023 02-06-2023 Chronic Headache; including migraine (20 sources) Acute headache; Translations: [Acute nonintractable headache] Onset: 12-13-2022 12-26-2023 Episodic Mood disorders (20 sources) Mood swings; Translations: [Emotional lability] Onset: 09-23-2022 09-23-2022 Episodic Mycoses (20 sources) Dermatophytosis; Translations: [Dermatophytosis, unspecified] Onset: 10-03-2023 10-03-2023 Episodic Other aftercare (20 sources) Postoperative visit; Translations: [Encounter for other specified surgical aftercare] Onset: 04-18-2023 04-18-2023 Episodic Other circulatory disease (20 sources) Elevated blood pressure; Translations: [Elevated blood-pressure reading, without diagnosis of hypertension] Onset: 09-23-2022 09-23-2022 Episodic Other disorders of stomach and duodenum (20 sources) Gastroparesis syndrome; Translations: [Gastroparesis] Onset: 11-02-2022 Episodic Other disorders of stomach and duodenum (2 sources) Gastroparesis; Translations: [Gastroparesis] Onset: 10-17-2022 Episodic Other gastrointestinal disorders (20 sources) Dysphagia; Translations: [Dysphagia, unspecified] Onset: 09-23-2022 09-23-2022 Episodic Other gastrointestinal disorders (20 sources) History of pancreatitis; Translations: [Personal history of other diseases of the digestive system] Onset: 04-18-2023 04-18-2023 Episodic Other infections; including parasitic (20 sources) Personal history of other infectious and parasitic diseases; Translations: [History of COVID-19] Onset: 02-06-2023 02-06-2023 Episodic Other liver diseases (20 sources) Elevated liver enzymes level; Translations: [Abnormal levels of other serum enzymes] Onset: 09-23-2022 09-23-2022 Episodic Other lower respiratory disease (1 source) Shortness of breath; Translations: [SOB (shortness of breath)] Onset: 05-27-2022 Episodic Other lower respiratory disease (20 sources) Cough; Translations: [Cough] Onset: 04-18-2023 04-18-2023 Episodic Other nervous system disorders (20 sources) Involuntary movement; Translations: [Unspecified abnormal involuntary movements] Onset: 09-23-2022 09-23-2022 Episodic Other nervous system disorders (20 sources) Pain of skin; Translations: [Other disturbances of skin sensation] Onset: 09-23-2022 09-23-2022 Episodic Other nutritional; endocrine; and metabolic disorders (20 sources) Obese class I; Translations: [Obesity (BMI 30.0-34.9)] Onset: 09-23-2022 Resolved: 02-06-2023 02-06-2023 Chronic Other nutritional; endocrine; and metabolic disorders (20 sources) Overweight; Translations: [Overweight] Onset: 02-06-2023 02-06-2023 Episodic Other nutritional; endocrine; and metabolic disorders (20 sources) Weight increased; Translations: [Abnormal weight gain] Onset: 10-03-2023 10-03-2023 Episodic Other screening for suspected conditions (not mental disorders or infectious disease) (20 sources) Ultrasound scan abnormal; Translations: [Abnormal findings on diagnostic imaging of other specified body structures] Onset: 09-23-2022 Resolved: 02-06-2023 Chronic Other screening for suspected conditions (not mental disorders or infectious disease) (20 sources) Encounter for screening for malignant neoplasm of cervix; Translations: [Other specified abnormal findings of blood chemistry] Onset: 04-06-2022 Episodic Other skin disorders (20 sources) Vesicular eczema; Translations: [Dyshidrosis [pompholyx]] Onset: 10-03-2023 10-03-2023 Episodic Other upper respiratory infections (20 sources) Maxillary sinusitis; Translations: [Chronic maxillary sinusitis] Onset: 09-23-2022 Resolved: 02-06-2023 02-06-2023 Chronic Ovarian cyst (6 sources) Other ovarian cyst, unspecified side; Translations: [Unspecified ovarian cyst, right side] Onset: 11-01-2021 Episodic Pancreatic disorders (not diabetes) (20 sources) Biliary acute pancreatitis without necrosis or infection; Translations: [Acute pancreatitis without necrosis or infection, unspecified] Onset: 03-21-2023 04-18-2023 Episodic Residual codes; unclassified (1 source) Acquired absence of both cervix and uterus; Translations: [ACQUIRED ABSENCE BOTH CERVIX AND UTERUS] Onset: 12-23-2021 Episodic Residual codes; unclassified (20 sources) Insomnia; Translations: [Insomnia, unspecified] Onset: 09-23-2022 [...] 06-29-2022 Resolved: 02-06-2023 06-29-2022 Episodic Viral infection (20 sources) COVID-19; Translations: [Other specified viral infection] [...] FRIEDMAN, Madhuri Kendrick Where: [facility] [id number]- Medications What How Much When Instructions Unchanged [...] choosing us for your care. Kelsy Villafuerte [facility] Urology Office/Clinic Noteon 12-28-2023 Urology Office/Clinic Note Urology Office/Clinic Note Chief Complaint Patient is here for follow up with [facility] HPI Staff 1 year with [facility] done 11/16/23. Dx: recurrent UTI and kidney stones Patient has been having recurrent UTI's. She does [facility] [email or web address] thru video zoom and gets abx without [...] UTI, # 20 cap(s), Refills(s) 2, Pharmacy: [facility]/pharmacy #[id number], 158, cm, 12/28/23 15:24:00 EDT, Height/Length Dosing, 87, kg, 12/28/23 15:24:00 EDT, Weight Dosing E&M of Est. Patient Moderate 30-39 Min 42174 2. Kidney stones (N20.0: Calculus of kidney) S/p R ESWL. KUB 06/29/22 at [facility] - negative Metabolic workup 07/08/22 - slightly elevated Na (149), low output volume (1000 mL) [facility] 11/16/23 - negative no recent flank pain, gross hematuria, stone passage. continue stone prevention diet repeat imaging 1 yr Ordered: cephalexin, See Instructions, 1 cap po after intercourse to prevent UTI, # 20 cap(s), Refills(s) 2, Pharmacy: [id number], 158, cm, 12/28/23 15:24:00 EDT, Height/Length Dosing, 87, kg, 12/28/23 15:24:00 EDT, Weight Dosing E&M of Est. Patient Moderate 30-39 Min 29255 Urnls Dip Stick Auto w/o Microscopy POC [id number] 3. Smoker (F17.200: Nicotine dependence, unspecified, uncomplicated) cessation encouraged Ordered: cephalexin, See Instructions, 1 cap po after intercourse to prevent UTI, # 20 cap(s), Refills(s) 2, Pharmacy: [id number], 158, cm, 12/28/23 15:24:00 EDT, Height/Length Dosing, 87, kg, 12/28/23 15:24:00 EDT, Weight Dosing E&M of Est. Patient Moderate 30-39 Min 36322 Follow-up With When Contact Information BHAVESH DEJESUS PA-C, URL Within 1 year Additional Instructions: Patient Education Kidney Stones, Bdmx-jr-Jhab Problem List/Past Medical History Ongoing Kidney stones [...] Mother. Immunizations Vaccine Date Status Comments SARSCoV2 mRNA(cihliydbi-dysz-m ucros) vac 11/02/2021 Recorded SARS-CoV-2 (COVID-19) mRNA BNT-162b2 [...] vaccine, inactiva (more content not included)... Normal [facility] Comment on above: Result Comment: Elec tronically Signed By: BHAVESH DEJESUS PA-C\Date and Time Signed: 12/28/23 16:01 EDT Ibrahima 12-19-2023 CNOV Office Visit (CARDMN ) BELGICA HARPER ([id number]) 1990 F Date Time Provider Department 12/19/23 2:45 PM SOLO MORA During your visit today, we recorded the following information about you: Pulse Blood pressure Weight Height 94/minute 127/91 85.3 kg 1.575 m Solo Mora MD 12/28/2023 2:49 AM Signed [facility]ice Meghna Hooker Department of Cardiovascular Medicine SECTION OF CARDIAC PACING and ELECTROPHYSIOLOGY OUTPATIENT VISIT DATE December 19, 2023 OUTPATIENT VISIT TYPE NEW PRIMARY CARE PHYSICIAN: Giovani Hagen MD [address] [place] [address] CHIEF COMPLAINT: Syncope, cardiac evaluation for family [...] had any workup done including Stress Echo, shelter monitor or 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 Reports symptoms of [...] No per (more content not included)... Normal [facility] ECG COMPLETEon 12-19-2023 ECG COMPLETE Ventricular Rate : 8 8 BPM Atrial Rate : 88 BPM P-R Interval : 148 ms QRS Duration : 78 ms Q-T Interval : 380 ms QTC Calculation(Bazett) : 459 ms Calculated P [place] : 62 degrees Calculated R [place] : 55 degrees Calculated T [place] : 38 degrees NORMAL SINUS RHYTHM NORMAL ECG Confirmed by MD BAH HEBA ([id number]) on 12/30/2023 6:45:12 PM NAME : BELGICA HARPER PID : [id number] : 1990 Gender : Female Race : Other ORD : [id number] Procedure Date : Dec 19 2023 13:51:58 Edit Date : Dec 30 2023 18:45:15 Diagnosis: NORMAL SINUS RHYTHM NORMAL ECG Confirmed by MD BAH HEBA ([id number]) on 12/30/2023 6:45:12 PM Test Reason : Location : 314 : J14 J1-4 Overread By : MD BAH HEBA Edited By : MD BAH HEBA Referred By : , Acquired by : CHELSEY JOSEPH [facility] [place] [facility] MEREDITHBELGICA ([id number]) 1990 F Date Time Provider Department 11/02/23 [...] Status:Closed by CRISS MCCRARY on 11/02/[address] [facility] Extra Lavender Tubeon 2022 Extra Lavender Tube Normal [facility] Comment on above: Performed By: #### X LAV, LIVP, LIP #### [facility] [address] [place] [address] Filter Press Tender: Ronald Pearce MD Lipaseon 03-24-2023 Lipase [Catalytic activity/Vol] 260 U/L High 13-60 [facility] Comment on above: Performed By: #### X LAV, LIVP, LIP #### [facility] [address] [place] [address] Filter Press Tender: Ronald Pearce MD Liver Profileon 03-24-2023 Albumin [Mass/Vol] 3.5 g/dL Normal 3.5-5.2 [facility] Comment on above: Performed By: #### X LAV, LIVP, LIP ####[facility] [address] [place] [address] Lab Director: Ronald Pearce MD Alkaline Phos 321 U/L High 35-104 [facility] Comment on above: Performed By: #### X LAV, LIVP, LIP ####[facility] [address] [place] [address] Lab Director: Ronald Pearce MD ALT [Catalytic activity/Vol] 137 U/L High 5-33 [facility] Comment on above: Performed By: #### X LAV, LIVP, LIP ####[facility] [address] [place] [address] Lab Director: Ronald Pearce MD AST [Catalytic activity/Vol] 60 U/L High <32 [facility] Comment on above: Performed By: #### X LAV, LIVP, LIP ####[facility] [address] [place] [address] Lab Director: Ronald Pearce MD Bilirubin [Mass/Vol] 1.0 mg/dL Normal 0.3-1.2 [facility] Comment on above: Performed By: #### X LAV, LIVP, LIP ####[facility] [address] [place] [address] Lab Director: Ronald Pearce MD Bilirubin, Indirect 0.4 mg/dL Normal 0.0-1.0 [facility] Comment on above: Performed By: #### X LAV, LIVP, LIP ####[facility] [address] [place] [address] Lab Director: Ronald Pearce MD Bilirubin.indirect [Mass/Vol] 0.6 mg/dL High <0.3 [facility] Comment on above: Performed By: #### X LAV, LIVP, LIP ####[facility] [address] [place], [place] [address]ia [facility] [place] [address] Lab Director: Ronald Pearce MD Protein [Mass/Vol] 5.7 g/dL Low 6.4-8.3 [facility] Comment on above: Performed By: #### X LAV, LIVP, LIP ####[facility] [address] [place] [address] Lab Director: Ronald Pearce MD Extra Lavender Tubeon 2022 Extra Lavender Tube Normal [facility] Comment on above: Performed By: #### L IVP, XLAV ####[facility] [address] [place] [address] lab Director: Ronald Pearce MD FL CHOLANGIOGRAM [...] Danny Cole MD 03/23/23 Final result Normal [facility] Liver Profileon 03-23-2023 Albumin [Mass/Vol] 3.5 g/dL Normal 3.5-5.2 [facility] Comment on above: Performed By: #### L IVP, XLAV ####[facility] [address] [place] [address] Lab Director: Ronald Pearce MD Alkaline Phos 293 U/L High 35-104 [facility] Comment on above: Performed By: #### L IVP, XLAV ####[facility] [address] [facility] [place] [address] Lab Director: Ronald Pearce MD ALT [Catalytic activity/Vol] 111 U/L High 5-33 [facility] Comment on above: Performed By: #### L IVP, XLAV ####[facility] [address] [facility] [place] [address] Lab Director: Ronald Pearce MD AST [Catalytic activity/Vol] 43 U/L High <32 [facility] Comment on above: Performed By: #### L IVP, XLAV ####[facility] [address], [place] [phone] Director: Ronald Pearce MD Bilirubin [Mass/Vol] 2.6 mg/dL High 0.3-1.2 [facility] Comment on above: Performed By: #### L IVP, XLAV ####[facility] [address] [place] [phone] Director: Ronald Pearce MD Bilirubin, Indirect 0.8 mg/dL Normal 0.0-1.0 [facility] Comment on above: Performed By: #### L IVP, XLAV ####[facility] [address], [place] [phone] Director: Ronald Pearce MD Bilirubin.indirect [Mass/Vol] 1.8 mg/dL High <0.3 [facility] Comment on above: Performed By: #### L IVP, XLAV ####[facility] [address], [place] [phone] Director: Ronald Pearce MD Protein [Mass/Vol] 5.7 g/dL Low 6.4-8.3 [facility] Comment on above: Performed By: #### L IVP, XLAV ####[facility] [address] [place] [address], [place] [phone] Director: Ronald Paerce MD Surgical Pathology Reporton 03-23-2023 Surgical Pathology Report (NOTE) Path Number: [id number] -- Diagnosis -- A. GALLBLADDER AND CONTENTS, CHOLECYSTECTOMY: Cholelithiasis. Lulú Javed M.D. Electronically Signed Out kmg203/27/2023 Clinical Information Pre-op Diagnosis: ACUTE PANCREATITIS, UNSPECIFIED [...] lesions or periductal lymph nodes are identified. Bicycle [employer]man sections 1c. tm SM/tb1:03/24/2023 Microscopic Description Microscopic examination performed. Processing Lab: [address] [phone] Interpretation Performed at [address] [phone] SURGICAL PATHOLOGY CONSULTATION Patient Name: BELGICA HARPER [facility] Rec: [id number] [facility] ANATOMIC PATHOLOGY [address] [place], [place] [phone] Normal [facility] CBC with Diffon 03-22-2023 Abs. Basophil <0.03 Normal 0.00-0.20 [facility] Comment on above: Performed By: #### C DP, LIP, CMPX #### [facility] [address] [place] [address] Filter Press Tender: Ronald Pearce MD #### TRIG #### [facility] [address]Contact[address] [place] [address] Filter Press Tender: Elio Marley MD Abs.Imm.Granulocyte 0.03 k/uL Normal 0.00-0.30 [facility] Comment on above: Performed By: #### C DP, LIP, CMPX #### [facility] [address] [place] [address] Filter Press Tender: Ronald Pearce MD #### TRIG #### [address] [address] [employer] Press Tender: Elio Marley MD Abs.Neutrophil (Seg) 6.89 k/uL Normal 1.50-8.10 [facility] Comment on above: Performed By: #### C DP, LIP, CMPX #### [facility] [address] [place] [address] [employer] Press Tender: Ronald Pearce MD #### TRIG #### [address] [address] [employer] Press Tender: Elio Marley MD Basophils/100 WBC (Bld) 0 % Normal 0-2 [facility] Comment on above: Performed By: #### C DP, LIP, CMPX #### [facility] [address] [place] [address] [employer] Press Tender: Ronald Pearce MD #### TRIG #### [address] [address] [employer] Press Tender: Elio Marley MD Eosinophils (Bld) [#/Vol] 0.07 10*3/uL Normal 0.00-0.44 [facility] Comment on above: Performed By: #### C DP, LIP, CMPX #### [facility] [address] [place] [address] [employer] Tender: Ronald Pearce MD #### TRIG #### [address] [address] [employer] Press Tender: Elio Marley MD Eosinophils/100 WBC (Bld) 1 % Normal 1-4 [facility] Comment on above: Performed By: #### C DP, LIP, CMPX #### [facility] [address] [place] [address] [employer] Tender: Ronald Pearce MD #### TRIG #### [address] [address] [employer] Press Tender: Elio Marley MD Erythrocyte distribution width (RBC) [Ratio] 12.2 % Normal 11.8-14.4 [facility] Comment on above: Performed By: #### C DP, LIP, CMPX #### [facility] [address] [place] [address] [employer] Tender: Ronald Pearce MD #### TRIG #### [address] [address] [employer] Press Tender: Elio Marley MD Hematocrit (Bld) [Volume fraction] 36.9 % Normal 36.3-47.1 [facility] Comment on above: Performed By: #### C DP, LIP, CMPX #### [facility] [address] [place] [address] [employer] Tender: Ronald Pearce MD #### TRIG #### [address] [address] [employer] Press Tender: Elio Marley MD Hemoglobin (Bld) [Mass/Vol] 12.1 g/dL Normal 11.9-15.1 [facility] Comment on above: Performed By: #### C DP, LIP, CMPX #### [facility] [address] [place] [address] [employer] Press Tender: Ronald Pearce MD #### TRIG #### [address] [address] [employer] Press Tender: Elio Marley MD Immature granulocytes/100 WBC (Bld) 0 % Normal 0 [facility] Comment on above: Performed By: #### C DP, LIP, CMPX #### [facility] [address] [place] [address] [employer] Press Tender: Ronald Pearce MD #### TRIG #### [address] [address] [employer] Press Tender: Elio Marley MD Lymphocytes (Bld) [#/Vol] 1.62 10*3/uL Normal 1.10-3.70 [facility] Comment on above: Performed By: #### C DP, LIP, CMPX #### [facility] [address] [place] [address] Filter Press Tender: Ronald Pearce MD #### TRIG #### [address] [phone] Filter Press Tender: Elio Marley MD Lymphocytes/100 WBC (Bld) 18 % Low 24-43 [facility] Comment on above: Performed By: #### C DP, LIP, CMPX #### [facility] [address] [place] [address] [employer] Press Tender: Ronald Pearce MD #### TRIG #### [address] [address] [employer] Press Tender: Elio Marley MD MCH (RBC) [Entitic mass] 32.5 pg Normal 25.2-33.5 [facility] Comment on above: Performed By: #### C DP, LIP, CMPX #### [facility] [address] [place] [address] [employer] Press Tender: Ronald Pearce MD #### TRIG #### [address] [phone] [employer] Press Tender: Elio Marley MD MCHC (RBC) [Mass/Vol] 32.8 g/dL Normal 28.4-34.8 [facility] Comment on above: Performed By: #### C DP, LIP, CMPX #### [facility] [address] [place] [address] Filter Press Tender: Ronald Pearce MD #### TRIG #### [address] [address] Filter Press Tender: Elio Marley MD MCV (RBC) [Entitic vol] 99.2 fL Normal 82.6-102.9 [facility] Comment on above: Performed By: #### C DP, LIP, CMPX #### [facility] [address] [place] [address] [employer] Press Tender: Ronald Pearce MD #### TRIG #### [address] [address] Filter Press Tender: Elio Marley MD Monocytes (Bld) [#/Vol] 0.57 10*3/uL Normal 0.10-1.20 [facility] Comment on above: Performed By: #### C DP, LIP, CMPX #### [facility] [address] [place] [address] [employer] Press Tender: Ronald Pearce MD #### TRIG #### [address] [address] [employer] Press Tender: Elio Marley MD Monocytes/100 WBC (Bld) 6 % Normal 3-12 [facility] Comment on above: Performed By: #### C DP, LIP, CMPX #### [facility] [address] [place] [address] [employer] Press Tender: Ronald Pearce MD #### TRIG #### [address] [address] [employer] Press Tender: Elio Marley MD Neutrophil (Seg) 75 % High 36-65 [facility] Comment on above: Performed By: #### C DP, LIP, CMPX #### [facility] [address] [place] [address] Filter Press Tender: Ronald Pearce MD #### TRIG #### [address] [address] [employer] Press Tender: Elio Marley MD NRBC Automated 0.0 per 100 WBC Normal 0.0 [facility] Comment on above: Performed By: #### C DP, LIP, CMPX #### [facility] [address] [place] [address] [employer] Press Tender: Ronald Pearce MD #### TRIG #### [address] [address] [employer] Press Tender: Elio Marley MD Platelet mean volume (Bld) [Entitic vol] 10.7 fL Normal 8.1-13.5 [facility] Comment on above: Performed By: #### C DP, LIP, CMPX #### [facility] [address] [place] [address] [employer] Press Tender: Ronald Pearce MD #### TRIG #### [address] [address] Filter Press Tender: Elio Marley MD Platelets (Bld) [#/Vol] 188 10*3/uL Normal 138-453 [facility] Comment on above: Performed By: #### C DP, LIP, CMPX #### [facility] [place] [address] Filter Press Tender: Ronald Pearce MD #### TRIG #### [address] [address] Filter Press Tender: Elio Marley MD RBC (Bld) [#/Vol] 3.72 10*6/uL Low 3.95-5.11 [facility] Comment on above: Performed By: #### C DP, LIP, CMPX #### [facility] [address] [place] [address] [employer] Press Tender: Ronald Pearce MD #### TRIG #### [address] [address] Filter Press Tender: Elio Marley MD WBC (Bld) [#/Vol] 9.2 10*3/uL Normal 3.5-11.3 [facility] Comment on above: Performed By: #### C DP, LIP, CMPX #### [facility] [address] [place] [address] Filter Press Tender: Ronald Pearce MD #### TRIG #### [address] [address] Filter Press Tender: Elio Marley MD Comp Metabolic Pr/rfx MGon 1 05-22-2022 Albumin [Mass/Vol] 3.5 g/dL Normal 3.5-5.2 [facility] Comment on above: Performed By: #### C DP, LIP, CMPX #### [facility] [address] [place] [address] [employer] Press Tender: Ronald Pearce MD #### TRIG #### [address] [address] Filter Press Tender: Elio Marley MD Alkaline Phos 157 U/L High 35-104 [facility] Comment on above: Performed By: #### C DP, LIP, CMPX #### [facility] [address] [place] [address] [employer] Press Tender: Ronald Pearce MD #### TRIG #### [address] [address] Filter Press Tender: Elio Marley MD ALT [Catalytic activity/Vol] 131 U/L High 5-33 [facility] Comment on above: Performed By: #### C DP, LIP, CMPX #### [facility] [address] [place] [address] Filter Press Tender: Ronald Pearce MD #### TRIG #### [address] [address] Filter Press Tender: Elio Marley MD Anion gap [Moles/Vol] 11 mmol/L Normal 9-17 [facility] Comment on above: Performed By: #### C DP, LIP, CMPX #### [facility] [address] [place] [address] [employer] Press Tender: Ronald Pearce MD #### TRIG #### [address] [address] Filter Press Tender: Elio Marley MD AST [Catalytic activity/Vol] 34 U/L High <32 [facility] Comment on above: Performed By: #### C DP, LIP, CMPX #### [facility] [address] [place] [address] [employer] Press Tender: Ronald Pearce MD #### TRIG #### [address] [address] Filter Press Tender: Elio Marley MD Bilirubin [Mass/Vol] 1.9 mg/dL High 0.3-1.2 [facility] Comment on above: Performed By: #### C DP, LIP, CMPX #### [facility] [address] [place] [address] Filter Press Tender: Ronald Pearce MD #### TRIG #### [address] [address] Filter Press Tender: Elio Marley MD BUN/CRE Ratio 17 Normal 9-20 [facility] Comment on above: Performed By: #### C DP, LIP, CMPX #### [facility] [address] [place] [address] [employer] Press Tender: oRnald Pearce MD #### TRIG #### [address] [address] Filter Press Tender: Elio Marley MD Calcium [Mass/Vol] 8.1 mg/dL Low 8.6-10.4 [facility] Comment on above: Performed By: #### C DP, LIP, CMPX #### [facility] [address] [place] [address] [employer] Press Tender: Ronald Pearce MD #### TRIG #### [address] [address] Filter Press Tender: Elio Marley MD Chloride [Moles/Vol] 105 mmol/L Normal 98-107 [facility] Comment on above: Performed By: #### C DP, LIP, CMPX #### [facility] [address] [place] [address] Filter Press Tender: Ronald Pearce MD #### TRIG #### [address] [address] Filter Press Tender: Elio Marley MD CO2 [Moles/Vol] 21 mmol/L Normal 20-31 [facility] Comment on above: Performed By: #### C DP, LIP, CMPX #### [facility] [address] [place] [address] Filter Press Tender: Ronald Pearce MD #### TRIG #### [address] [address] Filter Press Tender: Elio Marley MD Creatinine [Mass/Vol] 0.6 mg/dL Normal 0.5-0.9 [facility] Comment on above: Performed By: #### C ANIL GREWAL, CMPX #### [facility] [address] [place] [address] Filter Press Tender: Ronald Pearce MD #### TRIG #### [address] [address] Filter Press Tender: Elio Marley MD GFR/1.73 sq M.predicted among non-blacks MDRD (S/P/Bld) [Vol rate/Area] mL/min/{1.73_m2} Normal >60 [facility] Comment on above: Result Comment: These [...] renal tubular secretion. Performed By: #### C ANIL GREWAL, CMPX #### [facility] [address] [place] [address] Filter Press Tender: Ronald Pearce MD #### TRIG #### [address] [address] Filter Press Tender: Elio Marley MD Glucose [Mass/Vol] 75 mg/dL Normal 70-99 [facility] Comment on above: Performed By: #### C DP LIP, CMPX #### [facility] [address] [place] [address] Filter Press Tender: Ronald Pearce MD #### TRIG #### [address] [address] Filter Press Tender: Elio Marley MD Potassium [Moles/Vol] 4.0 mmol/L Normal 3.7-5.3 [facility] Comment on above: Performed By: #### C DP, LIP, CMPX #### [facility] [place] [address] Filter Press Tender: Ronald Pearce MD #### TRIG #### [address] [address] Filter Press Tender: Elio Marley MD Protein [Mass/Vol] 5.7 g/dL Low 6.4-8.3 [facility] Comment on above: Performed By: #### C DP, LIP, CMPX #### [facility] [address] [place] [address] Filter Press Tender: Ronald Pearce MD #### TRIG #### [address] [address] Filter Press Tender: Elio Marley MD Sodium [Moles/Vol] 137 mmol/L Normal 135-144 [facility] Comment on above: Performed By: #### C DP, LIP, CMPX #### [facility] [address] [place] [address] Filter Press Tender: Ronald Pearce MD #### TRIG #### [address] [address] Filter Press Tender: Elio Marley MD Urea nitrogen [Mass/Vol] 10 mg/dL Normal 6-20 [facility] Comment on above: Performed By: #### C DP, LIP, CMPX #### [facility] [address] [place] [address] Filter Press Tender: Ronald Pearce MD #### TRIG #### [address] [address] Filter Press Tender: MD Agustín Gordillo (Potassium)on 03-22-2023 Potassium [Moles/Vol] 3.8 mmol/L Normal 3.7-5.3 [facility] Comment on above: Performed By: #### K #### [facility] [address] [place] [address] Filter Press Tender: Ronald Pearce MD Lipaseon 03-22-2023 Lipase [Catalytic activity/Vol] 198 U/L High 13-60 [facility] Comment on above: Performed By: #### C DP, LIP, CMPX #### [facility] [address] [place] [address] Filter Press Tender: Ronald Pearce MD #### TRIG #### [facility] [address] [place] [address] Filter Press Tender: Elio Marley MD MRI ABDOMEN WO CONTRAST [...] Daniel Hooker MD 03/22/23 Final result Normal [facility] Triglycerideson 03-22-2023 Triglyceride [Mass/Vol] 102 mg/dL Normal 0-149 [facility] Comment on above: Result Comment: Triglyceride Guidelines: <150 Desirable 150-199 Borderline 200-499 High >499 Very high Based on AHA Guidelines for fasting triglyceride, January 2012. Performed By: #### C DP, LIP, CMPX #### [facility] [address] [place], [place] [id number] Filter Press Tender: Ronlad Pearce MD #### TRIG #### [facility] [address] [place], [place] [phone] Filter Press Tender: MD Lincoln Gordillo 03-20-2023 [facility] Telephone (FVPRAD) BELGICA HARPER ([id number]) 1990 F Date Time Provider Department 03/20/23 [...] Encounter Status:Closed by LAWRENCE CAMPUZANO on 03/20/23 [facility] DENY Antinuclear Antibodieson 10-26-2022 Antinuclear Abs, IFA Negative Normal . [facility] Comment on above: Order Comment: Reaso n for Exam Elevated liver enzymes Result Comment: Nega tive <1:80 Borderline 1:80 Positive >1:80 ICAP nomenclature: AC-0 For more information about Hep-2 cell patterns use ANApatterns.org, the official website for the International Consensus on Antinuclear Antibody (DENY) Patterns (ICAP). Performed at: [address] [id number] Filter Press Tender: Demarcus Moreno PhD, Phone: [phone] Performed By: #### A NA, HEMOCHROM, IGG, MITOM2, ALPHA PHEN, HAABT, SMAB, CERULOP, L-K MICRO #### [facility] , #### CONST[place]INO #### [address] [id number] Phenotyp kwasi 10-26-2022 Alpha 1 Anti-Trypsin 121 mg/dL Normal 100-188 [facility] Comment on above: Order Comment: Reaso n for Exam Elevated liver enzymes Performed By: #### A NA, HEMOCHROM, IGG, MITOM2, ALPHA PHEN, HAABT, SMAB, CERULOP, L-K MICRO #### [facility] , #### [place] #### [address] Phenotype (P1) MM Normal . [facility] Comment on above: Order Comment: Reaso [...] Ranges used to confirm phenotype. Performed at: [address] [id number] Filter Press Tender: Demarcus Moreno PhD, Phone: [phone] Performed at: [address] [id number] Filter Press Tender: Yuli Callejas MD, Phone: [phone] Performed By: #### A NA, HEMOCHROM, IGG, MITOM2, ALPHA PHEN, HAABT, SMAB, CERULOP, L-K MICRO #### [facility] , #### [place] #### [address] Ceruloplasminon 10-26-2022 Ceruloplasmin 27.2 mg/dL Normal 19.0-39.0 [facility] Comment on above: Order Comment: Reaso n for Exam Elevated liver enzymes Result Comment: Perf ormed at: [address] [id number] Filter Press Tender: Demarcus Moreno PhD, Phone: [phone] PERFORMED BY: [place] [address] PATHOLOGIST TREAD TUBER MACHINE OPERATOR ILIANA CAMP M.D. Performed By: #### A NA, HEMOCHROM, IGG, MITOM2, ALPHA PHEN, HAABT, SMAB, CERULOP, L-K MICRO #### [facility] , #### [place] #### [facility] [address] [place] [address] Ferritinon 10-26-2022 Ferritin [Mass/Vol] 106.5 ng/mL Normal 11.0-306.8 [facility] Comment on above: Order Comment: pt is fasting Reason for Exam Elevated liver enzymes Result Comment: PERF ORMED BY: [place] [address] PATHOLOGIST TREAD TUBER MACHINE OPERATOR ILIANA CAMP M.D. Performed By: #### A NA, HEMOCHROM, IGG, MITOM2, ALPHA PHEN, HAABT, SMAB, CERULOP, L-K MICRO #### [facility] , #### [place] #### [facility] [address] [place] [address] Ferritin [Mass/volume] in Se rum or PlasmaOrdered By: Erwin Hylton on 10-26-2022 Ferritin [Mass/Vol] 106.5 ng/mL 11.0-306.8 [facility] Hepatitis A Antibody Totalon 10-26-2022 Hepatitis A Antibody Total Negative Normal Negative [facility] Comment on above: Order Comment: Reaso n for Exam Elevated liver enzymes Result Comment: Perf ormed at: - [facility] [address] [id number] Filter Press Tender: Demarcus Moreno PhD, Phone: [phone] PERFORMED BY: [place] [address] PATHOLOGIST TREAD TUBER MACHINE OPERATOR ILIANA CAMP M.D. Performed By: #### A NA, HEMOCHROM, IGG, MITOM2, ALPHA PHEN, HAABT, SMAB, CERULOP, L-K MICRO #### [facility] , #### [place] #### [facility] [address] [place] [address] Hereditary Hemochromatosis,D NAon 10-26-2022 Hereditary Hemochromatosis Normal . [facility] Comment on above: Order Comment: Reaso n for Exam Elevated liver enzymes Result Comment: Resu lt: c.845G>A (p.Qnj228Wxt) - Not Detected c.187C>G (p.Fjx54Bgu) - Not Detected c.193A>T (p.Gcf91Ald) - Not Detected Not associated with increased [...] for patients who are homozygous for c.845G>A (p.Puf164Knz) and have yet to experience clinical symptoms. Comments: The most common HFE variants associated with hereditary hemochromatosis are c.845G>A (p.Pdb250Kuq), c.187C>G (p.Plf52Wot), c.193A>T (p.Vwg98Fvo). While patients homozygous for c.845G>A (p.Sqf866Jes) are the most likely to present clinical symptoms, less than 10% develop clinically significant iron overload with tissue and organ damage. Genetic counseling is recommended to discuss the potential clinical implications of positive results, as well as recommendations for testing family members. Genetic Coordinators are available for health care providers to discuss results at [phone]). Test Details: Three variants analyzed: c.845G>A (p.Xdr798Ttk), commonly referred to as C282Y c.187C>G (p.Wym89Kdp), commonly referred to as H63D c.193A>T (p.Tjo49Gnx), commonly referred to as S65C Methods/Limitations: DNA [...] developed and its performance characteristics determined by [employer]. It has not been cleared or approved by the Food and Drug Administration. References: Brodie BR, Yoav PC, Deborah KV, Raymond LW, Ramsey ; [employer] Liver [employer]. Diagnosis and management of hemochromatosis: 2011 practice guideline by the [employer] Liver Diseases. Hepatology. 2011 Oct;54(1):328-43. doi: 10.1002/hep.04508. PMID: 21508529; PMCID: [id number]. Cora G, Olegario P, Fabio MCDONALD, Tabatha H, Love O, Zev S, Vazquez I, Kofi M, Sunitha S. [facility] best practice guidelines for the molecular genetic diagnosis of hereditary hemochromatosis (HH). Eur J Hum Margaret. 2016 Jul;24(4):479-95. doi: 10.1038/ejhg.2015.128. Epub 2014Oct 29. PMID: 36356716; PMCID: [id number]. Performed By: #### A NA, HEMOCHROM, IGG, MITOM2, ALPHA PHEN, HAABT, SMAB, CERULOP, L-K MICRO #### [facility] , #### [place] #### [address] Reviewed by: Dm Reyna, PhD Normal . [facility] Comment on above: Order Comment: Reaso n for Exam Elevated liver enzymes Result Comment: Perf ormed at: TG - [facility] [address] [place], [place] [id number] Filter Press Tender: [facility] located [facility], Phone: [phone] PERFORMED BY: [place] [address] PATHOLOGIST TREAD TUBER MACHINE OPERATOR ILIANA CAMP M.D. Performed By: #### A NA, HEMOCHROM, IGG, MITOM2, ALPHA PHEN, HAABT, SMAB, CERULOP, L-K MICRO #### [facility] , #### [place] #### [facility] [address] [place] [address] Immunoglobulin Harvey 3 Immunoglobulin G 865 mg/dL Normal 586-1602 [facility] Comment on above: Order Comment: Reaso n for Exam Elevated liver enzymes Result Comment: Perf ormed at: CB - [facility] [address] [id number] Filter Press Tender: Demarcus Moreno PhD, Phone: [phone] Performed By: #### A NA, HEMOCHROM, IGG, MITOM2, ALPHA PHEN, HAABT, SMAB, CERULOP, L-K MICRO #### [facility] , #### [place] #### [place] [address] [place] Liver-Kidney Microsomal Abon 10-26-2022 Liver-Kidney Microsomal Ab <1.0 Normal 0.0-20.0 [facility] Comment on above: Order Comment: Reaso [...] MICRO #### [facility] , #### [place] #### [place] [address] [place] Mitochondrial (M2) Antibodyo n 10-26-2022 Mitochondrial (M2) Antibody <20.0 Normal 0.0-20.0 [facility] Comment on above: Order Comment: Reaso n for Exam Elevated liver enzymes Result Comment: Nega tive 0.0 - 20.0 Equivocal 20.1 - 24.9 Positive >24.9 Mitochondrial (M2) Antibodies are found in 90-96% of patients with primary biliary cirrhosis. Performed at: [address] [id number] Filter Press Tender: Demarcus Moreno PhD, Phone: [phone] Performed By: #### A NA, HEMOCHROM, IGG, MITOM2, ALPHA PHEN, HAABT, SMAB, CERULOP, L-K MICRO #### [facility] , #### [place] #### [place] [address] [place] Smooth Muscle Antibodyon Smooth Muscle Antibody 4 Normal 0-19 [facility] Comment on above: Order Comment: Reaso [...] MICRO #### [facility] , #### [place] #### [address] liveron 10-26-2022 [facility] [address] [place] [address] Ultrasound Report Signed Patient: Belgica Harper MR#: [id number] : 1990 Acct:[id number] Age/Sex: 32 / F ADM Date: 10/26/22 Loc: Room: Type: [facility] Attending Dr: Erwin Hylton MD Ordering Provider: [...] Perdomo Jr., D.O.10/26/2022 3:24 PM Dictation Location: [place] [address] Tech: Francia Lopez Transcribed By: GRANT 10/26/22 1524 Dictated By: Alexandro Perdomo Jr, DO 10/26/22 152 Signed By: 10/26/22 1524 [facility] ACETYLCHOLINE REC BINDING AB on 10-17-2022 ACETYLCHOLINE BINDING, QUAL Negative Normal Negative [facility] Comment on above: Order Comment: Speci men Type: BLOOD SPECIMEN Ordering Facility: [facility] Address: [address] [place] [address] Result Comment: Anti -acetylcholine receptor binding antibody test is used as an aid in diagnosis of myasthenia gravis. A negative result cannot exclude myasthenia gravis. Clinical correlation is required. Performed By: #### 3 -3, 2156-09 #### [facility] CLIA [id number] [address] [place] [address] [place] Acetylcholine receptor binding Ab (S) [Moles/Vol] <0.02 Normal <0.21 [facility] Comment on above: Order Comment: Rl basilio Type: BLOOD SPECIMEN Ordering Facility: [facility] Address: [address] [place] [address] Performed By: #### 3 0163, 2156-09 #### [facility] CLIA [id number] [address] [place] [address] [place] AMINO ACIDS, PLASMA W/ CONSU LTATIONon 10-17-2022 Alanine [Moles/Vol] 310 umol/L Normal 177-583 [facility] Comment on above: Order Comment: Dionicioi chetna Type: BLOOD SPECIMEN Ordering Facility: [facility] Address: [address] [place] [address] Performed By: #### 3 3, 2156-09 #### [facility] CLIA [id number] [address] [place] [address] [place] Alloisoleucine [Moles/Vol] 2 umol/L Normal 0-2 [facility] Comment on above: Order Comment: Dionicioi chetna Type: BLOOD SPECIMEN Ordering Facility: [facility] Address: [address] [place] [address] Performed By: #### 3 016-3, 2156-09 #### [facility] CLIA [id number] [address] [place] [address] [place] Alpha aminoadipate [Moles/Vol] <1 Normal 0-6 [facility] Comment on above: Order Comment: Speci men Type: BLOOD SPECIMEN Ordering Facility: [facility] Address: [place] [id number] Performed By: #### 3 016-3, 2156-09 #### [facility] CLIA [id number] [address] [place] [address] [place] AMINO ACID CONSULTATION, PLASMA Normal [facility] Comment on above: Order Comment: Speci men Type: BLOOD SPECIMEN Ordering Facility: [facility] Address: [address] Result Comment: This plasma amino acid analysis shows no significant abnormalities. Reference intervals from Isacc E, Len MG, Humble FANTASMA, and Christopher DK: Biochemical Genetics: A Laboratory Manual, Copyright 1989 by [employer] Reference intervals not established for some amino acids. This test was developed and its performance characteristics determined by [facility] Pathology and Laboratory Medicine [place] ([facility]). It has not been cleared or approved by the FDA. -[facility] is regulated under CLIA as qualified to perform high complexity testing. This test is used for clinical purposes. It should not be regarded as investigational or for research. Performed By: #### 3 016-3, 2156-09 #### [facility] CLIA [id number] [address] [place] [address] [facility] AMINO ACIDS REVIEW, PLASMA Reviewed by Patrick Proctor MD, Ph.D ([id number]) Normal [facility] Comment on above: Order Comment: Speci men Type: BLOOD SPECIMEN Ordering Facility: [facility] Address: [place] [address] Performed By: #### 3 016-3, 2156-09 #### [facility] CLIA [id number] [address] [place] [address] [place] Arginine [Moles/Vol] 77 umol/L Normal 15-128 [facility] Comment on above: Order Comment: Speci men Type: BLOOD SPECIMEN Ordering Facility: [facility] Address: [address] Performed By: #### 3 016-3, 2156-09 #### [facility] CLIA [id number] [address] [place] [address] [place] Asparagine [Moles/Vol] 44 umol/L Normal 35-74 [facility] Comment on above: Order Comment: Speci men Type: BLOOD SPECIMEN Ordering Facility: [facility] Address: [address] [place] [address] Performed By: #### 3 016-3, 2156-09 #### [facility] CLIA [id number] [address] [place] [address] [place] Aspartate [Moles/Vol] 2 umol/L Normal 1-25 [facility] Comment on above: Order Comment: Speci men Type: BLOOD SPECIMEN Ordering Facility: [facility] Address: [address] [place] [address] Performed By: #### 3 016-3, 2156-09 #### [facility] CLIA [id number] [address] [place] [address] [place] Citrulline [Moles/Vol] 25 umol/L Normal 12-55 [facility] Comment on above: Order Comment: Speci men Type: BLOOD SPECIMEN Ordering Facility: [facility] Address: [address] Performed By: #### 3 016-3, 2156-09 #### [facility] CLIA [id number] [address] [place] [address] [place] Cystine [Moles/Vol] 33 umol/L Normal 5-82 [facility] Comment on above: Order Comment: Speci men Type: BLOOD SPECIMEN Ordering Facility: [facility] Address: [address] [place] [address] Performed By: #### 3 016-3, 2156-09 #### [facility] CLIA [id number] [address] [place] [address] [place] Glutamate [Moles/Vol] 31 umol/L Normal 10-131 [facility] Comment on above: Order Comment: Speci men Type: BLOOD SPECIMEN Ordering Facility: [facility] Address: [address] [place] [address] Performed By: #### 3 016-3, 1987-08, 2156-09 #### [facility] CLIA [id number] [address] [place] [address] [place] Glutamine [Moles/Vol] 652 umol/L Normal 205-756 [facility] Comment on above: Order Comment: Speci men Type: BLOOD SPECIMEN Ordering Facility: [facility] Address: [address] [place] [address] Performed By: #### 3 016-3, 1987-08, 2156-09 #### [facility] [place] [id number] [address] [place] [address] [place] Glycine [Moles/Vol] 351 umol/L Normal 151-490 [facility] Comment on above: Order Comment: Speci men Type: BLOOD SPECIMEN Ordering Facility: [facility] Address: [address] [place] [address] Performed By: #### 3 016-3, 2156-09 #### [facility] IA [id number] [address] [place] [address] [place] Histidine [Moles/Vol] 82 umol/L Normal 72-124 [facility] Comment on above: Order Comment: Speci men Type: BLOOD SPECIMEN Ordering Facility: [facility] Address: [address] [place] [address] Performed By: #### 3 016-3, 2156-09 #### [facility] [place] [id number] [address] [place] [address] [place] Hydroxylysine [Moles/Vol] <1 High <=0 [facility] Comment on above: Order Comment: Speci men Type: BLOOD SPECIMEN Ordering Facility: [facility] Address: [address] Performed By: #### 3 016-3, 2156-09 #### [facility] CLIA [id number] [address] [place] [address] [place] Hydroxyproline [Moles/Vol] 9 umol/L Normal 0-53 [facility] Comment on above: Order Comment: Speci men Type: BLOOD SPECIMEN Ordering Facility: [facility] Address: [address] [place] [address] Performed By: #### 3 016-3, 2156-09 #### [facility] CLIA [id number] [address] [place] [address] [place] Isoleucine [Moles/Vol] 66 umol/L Normal 30-108 [facility] Comment on above: Order Comment: Speci men Type: BLOOD SPECIMEN Ordering Facility: [facility] Address: [address] [place] [address] Performed By: #### 3 0163, 2156-09 #### [facility] CLIA [id number] [address] [place] [address] [place] Leucine [Moles/Vol] 109 umol/L Normal 72-201 [facility] Comment on above: Order Comment: Speci men Type: BLOOD SPECIMEN Ordering Facility: [facility] Address: [address] Performed By: #### 3 016-3, 2156-09 #### [facility] CLIA [id number] [address] [place] [address] [place] Lysine [Moles/Vol] 220 umol/L Normal 116-296 [facility] Comment on above: Order Comment: Speci men Type: BLOOD SPECIMEN Ordering Facility: [facility] Address: [address] Performed By: #### 3 016-3, 2156-09 #### [facility] CLIA [id number] [address] [place] [address] [place] Methionine [Moles/Vol] 20 umol/L Normal 10-42 [facility] Comment on above: Order Comment: Speci men Type: BLOOD SPECIMEN Ordering Facility: [facility] Address: [address] [place] [address] Performed By: #### 3 016-3, 1987-08, 2156-09 #### [facility] CLIA [id number] [address] [place] [address] [place] Ornithine [Moles/Vol] 64 umol/L Normal 48-195 [facility] Comment on above: Order Comment: Speci men Type: BLOOD SPECIMEN Ordering Facility: [facility] Address: [address] [place] [address] Performed By: #### 3 016-3, 1987-08, 2156-09 #### [facility] CLIA [id number] [address] [place] [address] [place] Phenylalanine [Moles/Vol] 42 umol/L Normal 35-85 [facility] Comment on above: Order Comment: Speci men Type: BLOOD SPECIMEN Ordering Facility: [facility] Address: [address] [place] [address] Performed By: #### 3 016-3, 1987-08, 2156-09 #### [facility] IA [id number] [address] [place] [address] [place] Proline [Moles/Vol] 187 umol/L Normal 97-329 [facility] Comment on above: Order Comment: Speci men Type: BLOOD SPECIMEN Ordering Facility: [facility] Address: [address] [place] [address] Performed By: #### 3 016-3, 1987-08, 2156-09 #### [facility] CLIA [id number] [address] [place] [id number] [place] [address] [place] Sarcosine [Moles/Vol] <1 High <=0 [facility] Comment on above: Order Comment: Speci men Type: BLOOD SPECIMEN Ordering Facility: [facility] Address: [address] Performed By: #### 3 016-3, 2156-09 #### [facility] CLIA [id number] [address] [place] [address] [place] Serine [Moles/Vol] 107 umol/L Normal 58-181 [facility] Comment on above: Order Comment: Speci men Type: BLOOD SPECIMEN Ordering Facility: [facility] Address: [address] Performed By: #### 3 016-3, 1987-08, 2156-09 #### [facility] IA [id number] [address] [place] [address] [place] Taurine [Moles/Vol] 46 umol/L Low 54-210 [facility] Comment on above: Order Comment: Speci men Type: BLOOD SPECIMEN Ordering Facility: [facility] Address: [address] [place] [address] Performed By: #### 3 016-3, 2156-09 #### [facility] IA [id number] [address] [place] [address] [place] Threonine [Moles/Vol] 147 umol/L Normal 60-225 [facility] Comment on above: Order Comment: Speci men Type: BLOOD SPECIMEN Ordering Facility: [facility] Address: [address] Performed By: #### 3 016-3, 2156-09 #### [facility] CLIA [id number] [address] [place] [address] [place] Tyrosine [Moles/Vol] 51 umol/L Normal 34-112 [facility] Comment on above: Order Comment: Speci men Type: BLOOD SPECIMEN Ordering Facility: [facility] Address: [address] Performed By: #### 3 016-3, 2156-09 #### [facility] CLIA [id number] [address] [place] [address] [place] Valine [Moles/Vol] 199 umol/L Normal 119-336 Lisa harrell Comment on above: Order Comment: Rl basilio Type: BLOOD SPECIMEN Ordering Facility: [facility] Address: [address] [place] [address] Performed By: #### 3 016-3, 1987-, 2156-09 #### [facility] CLIA [id number] [address] [place] [id number] [place] CARNITINE FREE/TOTAL, PLASMA on 10-17-2022 C0 [Moles/Vol] 27 umol/L Normal 22-54 [place] [facility]in parry Comment on above: Order Comment: Rl basilio Type: BLOOD SPECIMEN Ordering Facility: [facility] Address: [address] [place] [address] Performed By: #### C ARNPL #### [facility] CLIA [id number] [facility] [address] [facility] C0/Total carnitine [Molar fraction] 0.675 Low 0.700-0.900 [facility] Comment on above: Order Comment: Rl basilio Type: BLOOD SPECIMEN Ordering Facility: [facility] Address: [address] [place] [address] Result Comment: NOTE : The determination of [...] determined by the Pathology and Laboratory Medicine [place] at the [facility]. The U.S. Food and Drug Administration has not approved or cleared this test, however, FDA clearance or approval is not currently required for clinical use. Performed By: #### C ARNPL #### [facility] CLIA [id number] [address] [place] [address] [place] Carnitine [Moles/Vol] 40 umol/L Normal 27-68 [facility] Comment on above: Order Comment: Speci men Type: BLOOD SPECIMEN Ordering Facility: [facility] Address: [address] [place] [address] Performed By: #### C ARNPL #### [facility] CLIA [id number] [address] [place] [address] [place] CK SerPl-cCncon 10-17-2022 CK [Catalytic activity/Vol] 50 U/L Normal 42-196 [facility] Comment on above: Order Comment: Speci men Type: BLOOD SPECIMEN Ordering Facility: [facility] Address: [address] [place] [address] Performed By: #### 3 016-3, 2156-09 #### [facility] CLIA [id number] [address] [place] [address] [place] CRP SerPl-mCncon 10-17-2022 CRP [Mass/Vol] 0.6 mg/dL Normal <0.9 [facility] Comment on above: Order Comment: Speci [facility] Type: BLOOD SPECIMEN Ordering Facility: [facility] Address: [address] Performed By: #### 3 016-3, 2156-09 #### [facility] IA [id number] [address] [place] [address] [place] CYTOKINE PANEL 13, SERUMon 0 10-17-2022 INTERFERON GAMMA <4.2 Normal <=4.2 [facility] emil Comment on above: Order Comment: Speci men Type: BLOOD SPECIMEN Ordering Facility: [facility] Address: [address] [place], [place] [address] Performed By: #### 3 016-3, 2156-09 #### [facility] CLIA [id number] [address] [place] [address] [place] INTERLEUKIN 1 BETA <6.5 Normal <=6.7 Lisa harrell Comment on above: Order Comment: Speci men Type: BLOOD SPECIMEN Ordering Facility: [facility] Address: [address] [place] [address] Performed By: #### 3 016-3, 2156-09 #### [facility] CLIA [id number] [address] [place] [address] [place] INTERLEUKIN 10 3.2 pg/mL High <=2.8 [facility] Comment on above: Order Comment: Speci men Type: BLOOD SPECIMEN Ordering Facility: [facility] Address: [address] [place] [address] Performed By: #### 3 0163, 2156-09 #### [facility] CLIA [id number] [place] INTERLEUKIN 12 <1.9 Normal <=1.9 [facility] Comment on above: Order Comment: Speci men Type: BLOOD SPECIMEN Ordering Facility: [facility] Address: [address] [place] [address] Performed By: #### 3 0163, 2156-09 #### [facility] CLIA [id number] [address] [place] [address] [place] INTERLEUKIN 13 <1.7 Normal <=2.3 [facility] Comment on above: Order Comment: Speci men Type: BLOOD SPECIMEN Ordering Facility: [facility] Address: [address] [place] [address] Performed By: #### 3 016-3, 2156-09 #### [facility] CLIA [id number] [address] [place], [place] [address] [place] [address] [place] INTERLEUKIN 17 <1.4 Normal <=1.4 [facility] Comment on above: Order Comment: Speci men Type: BLOOD SPECIMEN Ordering Facility: [facility] Address: [address] [place] [address] Performed By: #### 3 016-, 2156-09 #### [facility] CLIA [id number] [address] [place], [place] [address] [place] [address] [place] INTERLEUKIN 2 <2.1 Normal <=2.1 [facility] Comment on above: Order Comment: Speci men Type: BLOOD SPECIMEN Ordering Facility: [facility] Address: [address] [address] Performed By: #### 3 016, 2156-09 #### [facility] CLIA [id number] [place] INTERLEUKIN 4 (INT4) <2.2 Normal <=2.2 [facility] Comment on above: Order Comment: Speci men Type: BLOOD SPECIMEN Ordering Facility: [facility] Address: [address] [place] [address] Performed By: #### 3 , 2156-09 #### [facility] CLIA [id number] [address] [place], [place] [address] [place] [address] [place] INTERLEUKIN 5 <2.1 Normal <=2.1 [facility] Comment on above: Order Comment: Speci men Type: BLOOD SPECIMEN Ordering Facility: [facility] Address: [address] [address] Performed By: #### 3 , 2156-09 #### [facility] CLIA [id number] [address] [facility] [place], [place] [address] [place] [address] [place] INTERLEUKIN 6 <2.0 Normal <=2.0 [facility] Comment on above: Order Comment: Speci men Type: BLOOD SPECIMEN Ordering Facility: [facility] Address: [address] [place] [address] Performed By: #### 3 0163, 2156-09 #### [facility] CLIA [id number] [address] [place] [address] [facility] [place] INTERLEUKIN 8 <3.0 Normal <=3.0 [facility] Comment on above: Order Comment: Speci men Type: BLOOD SPECIMEN Ordering Facility: [facility] Address: [address] [id number] Performed By: #### 3 016-, 2156-09 #### [facility] CLIA [id number] [address] [place] INTERLEUKIN-2 RECEPTOR 355.4 pg/mL Normal 175.3-858.2 [facility] Comment on above: Order Comment: Speci men Type: BLOOD SPECIMEN Ordering Facility: [facility] Address: [address] [place] [address] Performed By: #### 3 , 2156-09 #### [facility] CLIA [id number] TUMOR NECROSIS FACTOR - ALPHA 1.9 pg/mL Normal <=7.2 [facility] Comment on above: Order Comment: Speci [facility] Type: BLOOD SPECIMEN Ordering Facility: [facility] Address: [address] [place] [address] Result Comment: INTE RPRETIVE INFORMATION: Cytokines Results are used to understand the pathophysiology of immune, infectious, or inflammatory disorders, or may be used for research purposes. This test was developed and its performance characteristics determined by [employer]. It has not been cleared or approved by the US Food and Drug Administration. This test was performed in a CLIA certified laboratory and is intended for clinical purposes. Performed By: [employer] [address] [place] [address] Tobacco Checkout Clerk: Terry Jacome MD, PhD Performed By: #### 3 016-3, 2156-09 #### [facility] CLIA [id number] [address] [id number] [place] ESR Westergren method (Bld) [Velocity]on 10-17-2022 ESR (Bld) [Velocity] 5 mm/h Normal 0-20 [facility] Comment on above: Order Comment: Speci men Type: BLOOD SPECIMEN Ordering Facility: [facility] Address: [address] [address] Performed By: #### 4 537-7 #### [facility] CLIA [id number] 9500 [facility] [place] [address] [place] ESTROGEN FRACTION BLon 10-17 ESTRADIOL 238.7 pg/mL Normal [facility] Comment on above: Order Comment: Speci men Type: BLOOD SPECIMEN Ordering Facility: [facility] Address: [address] [address] Result Comment: REFE RENCE INTERVAL: Estradiol by Upholsterer Outside For a complete set of all established reference intervals, refer to [email or web address]. This test was developed and its performance characteristics determined by [employer]. It has not been cleared or approved by the [place] Food and Drug Administration. This test was performed in a CLIA certified laboratory and is intended for clinical purposes. Performed By: #### 3 016-3, 1987-08, 2156-09 #### [facility] CLIA [id number] [address] [place] [address] [place] ESTROGENS TOTAL 354.8 pg/mL Normal [facility] Comment on above: Order Comment: Speci men Type: BLOOD SPECIMEN Ordering Facility: [facility] Address: [address] [place] [address] Result Comment: Refe rence interval of estrogens (pg/mL) Estrone Estradiol Total Estrogens Early follicular <150.0 30.0-100.0 30.0-250.0 Late follicular 100.0-250.0 100.0-400.0 200.0-650.0 Luteal <200.0 50.0-150.0 50.0-350.0 Post-menopausal 3.0-32.0 2.0-21.0 5.0-52.0 REFERENCE INTERVAL: Estrogens Total Calculation For a complete set of all established reference intervals, refer to [email or web address]/Tests/Pub/[id number]. Performed By: [employer] [address] [place] [address] Tobacco Checkout Clerk: Terry Jcaome MD, PhD Performed By: #### 3 016-, 2156-09 #### [facility] CLIA [id number] [address] STATES [facility] ESTRONE 116.1 pg/mL Normal [facility] Comment on above: Order Comment: Rl basilio Type: BLOOD SPECIMEN Ordering Facility: [facility] Address: [address] [place] [address] Result Comment: INTERPRETIVE INFORMATION: Estrone by Upholsterer Outside For a complete set of all established reference intervals, refer to [email or web address]/Tests/Pub/[id number]. This test was developed and its performance characteristics determined by [employer]. It has not been cleared or approved by the US Food and Drug Administration. This test was performed in a CLIA certified laboratory and is intended for clinical purposes. Performed By: #### 3 , 2156-09 #### [facility] CLIA [id number] [address] [place] [address] [place] GAD65 Ab Ser-aCncon 10-18-19 Glutamate decarboxylase 65 Ab Qn (S) <5.0 Normal <=5.0 [facility] Comment on above: Order Comment: Rl basilio Type: BLOOD SPECIMEN Ordering Facility: [facility] Address: [address] [place] [address] Result Comment: Anti -glutamic acid decarboxylase antibody [...] correlation is required. Performed By: #### 3 016-, 2156-09 #### [facility] CLIA [id number] [address] [id number] [place] Glutamate decarboxylase 65 A b Qn (S)on 10-17-2022 GLUTAMIC ACID DECARBOXYLAS AB QUALITATIVE Negative Normal Negative [facility] Comment on above: Order Comment: Rl [facility] Type: BLOOD SPECIMEN Ordering Facility: [facility] Address: [place] [address] Performed By: #### 3 -, 2156-09 #### [facility] CLIA [id number] [address] [place] [address] [place] HbA1c (Bld)on 10-17-2022 Average glucose Estimated from glycated hemoglobin (Bld) [Mass/Vol] 88 mg/dL Normal [facility] Comment on above: Order Comment: Rl basilio Type: BLOOD SPECIMEN Ordering Facility: [facility] Address: [address] Result Comment: eAG: (Estimated average glucose) is a calculated value from HgbA1c and is factory representative of the average blood glucose level in the last 2-3 month period. Performed By: #### 3 , 1987-08, 2156-09 #### [facility] CLIA [id number] [address] [place] [address] [place] HbA1c (Bld) [Mass fraction] 4.7 % Normal 4.3-5.6 [facility] Comment on above: Order Comment: Rl basilio Type: BLOOD SPECIMEN Ordering Facility: [facility] Address: [address] [address] Result Comment: Amer ican Diabetes Association guidelines indicate that patients with HgbA1c in the range 5.7-6.4% are at increased risk for development of diabetes, and intervention by lifestyle modification may be beneficial. HgbA1c greater or equal to 6.5% is considered diagnostic of diabetes. Performed By: #### 3 , 2156-09 #### [facility] CLIA [id number] [address] [place] [address] [place] IgA SerPl-mCncon 10-17-2022 IgA [Mass/Vol] 169 mg/dL Normal 70-400 [facility] Comment on above: Order Comment: Rl basilio Type: BLOOD SPECIMEN Ordering Facility: [facility] Address: [address] [phone] Performed By: #### 3 , 2156-09 #### [facility] CLIA [id number] [address] [place] [address] [place] IgG SerPl-mCncon 10-17-2022 IgG [Mass/Vol] 932 mg/dL Normal 700-1600 [facility] Comment on above: Order Comment: Speci men Type: BLOOD SPECIMEN Ordering Facility: [facility] Address: [address] [place] [address] Performed By: #### 3 016-3, 2156-09 #### [facility] CLIA [id number] [address] [place] [address] [place] IgM SerPl-mCncon 10-17-2022 IgM [Mass/Vol] 199 mg/dL Normal 40-230 [facility] Comment on above: Order Comment: Speci men Type: BLOOD SPECIMEN Ordering Facility: [facility] Address: [address] [place] [address] Performed By: #### 3 016-3, 2156-09 #### [facility] IA [id number] [address] [place] [address] [place] LDH SerPl-cCncon 10-17-2022 LDH [Catalytic activity/Vol] 160 U/L Normal 135-214 [facility] Comment on above: Order Comment: Speci men Type: BLOOD SPECIMEN Ordering Facility: [facility] Address: [address] [place] [address] Performed By: #### 3 016-3, 2156-09 #### [facility] IA [id number] [address] [place] [address] [place] ORGANIC ACIDS UR, QUANT W/CO NSULTon 10-17-2022 2-Hydroxyglutarate/Cr eatinine (U) [Molar ratio] 3.6 umol/mmolCr Normal 0.6-17.7 [facility] Comment on above: Order Comment: Speci men Type: URINE SPECIMEN Ordering Facility: [facility] Address: [address] [place] [address] Performed By: #### L [id number] #### [facility] CLIA [id number] [address] OF [place] 2-Hydroxyisovalerate/ Creatinine (U) [Molar ratio] <0.1 Normal 0.0-0.1 [facility] Comment on above: Order Comment: Speci men Type: URINE SPECIMEN Ordering Facility: [facility] Address: [address] [place] [address] Performed By: #### L [id number] #### [facility] CLIA [id number] [address] [place] [address] OF [place] 3-Zaksnz-3-hydroxybut yrate (C5-OH)/Creatinine (U) [Molar ratio] <0.6 Normal 0.0-1.3 [facility] Comment on above: Order Comment: Speci men Type: URINE SPECIMEN Ordering Facility: [facility] Address: [address] [place] [address] Performed By: #### L [id number] #### [facility] IA [id number] [address] [place] [address] [place] 2-Methylbutyrylglycin e/Creatinine (U) [Molar ratio] 0.4 umol/mmolCr Normal 0.0-0.4 [facility] Comment on above: Order Comment: Speci men Type: URINE SPECIMEN Ordering Facility: [facility] Address: [address] [place] Performed By: #### L [id number] #### [facility] CLIA [id number] [address] STATES [place] 2-Methylcitrate/Creat inine (U) [Molar ratio] 1.8 umol/mmolCr Normal 1.0-13.9 [facility] Comment on above: Order Comment: Speci men Type: URINE SPECIMEN Ordering Facility: [facility] Address: [address] [place] Performed By: #### L [id number] #### [facility] CLIA [id number] [address] [place] [address] [place] 2-Oxoadipate/Creatini ne (U) [Molar ratio] <1.6 Normal 0.0-3.3 [facility] Comment on above: Order Comment: Speci men Type: URINE SPECIMEN Ordering Facility: [facility] Address: [address] Performed By: #### L [id number] #### [facility] CLIA [id number] [address] [place] [address] [place] 3-Hydroxyglutarate/Cr eatinine (U) [Molar ratio] 0.0 umol/mmolCr Normal 0.0-0.7 [facility] Comment on above: Order Comment: Speci men Type: URINE SPECIMEN Ordering Facility: [facility] Address: [address] Performed By: #### L [id number] #### [facility] CLIA [id number] [address] [place] [address] [place] 3-Hydroxyisovalerate/ Creatinine (U) [Molar ratio] 5.0 umol/mmolCr Normal 2.1-27.3 [facility] Comment on above: Order Comment: Speci men Type: URINE SPECIMEN Ordering Facility: [facility] Address: [address] [place] [address] Performed By: #### L [id number] #### [facility] CLIA [id number] [address] [place] [address] [place] 3-Methylcrotonylglyci ne/Creatinine (U) [Molar ratio] <0.3 Normal <0.3 [facility] Comment on above: Order Comment: Speci men Type: URINE SPECIMEN Ordering Facility: [facility] Address: [address] Performed By: #### L [id number] #### [facility] CLIA [id number] [address] [place] [address] [place] 3-Methylglutaconate/C reatinine (U) [Molar ratio] 0.7 umol/mmolCr Normal 0.0-2.0 [facility] Comment on above: Order Comment: Speci men Type: URINE SPECIMEN Ordering Facility: [facility] Address: [address] Performed By: #### L [id number] #### [facility] CLIA [id number] [address] [place] [address] [place] 3-Methylglutarate/Cre atinine (U) [Molar ratio] 0.5 umol/mmolCr Normal 0.0-0.6 [facility] Comment on above: Order Comment: Speci men Type: URINE SPECIMEN Ordering Facility: [facility] Address: [address] [place], [place] [address] Performed By: #### L [id number] #### [facility] CLIA [id number] [address] [place] [address] [place] 4-Hydroxyphenylacetat e/Creatinine (U) [Molar ratio] 149.0 umol/mmolCr High 5.7-147.5 [facility] Comment on above: Order Comment: Speci men Type: URINE SPECIMEN Ordering Facility: [facility] Address: [address] [place], [place] [address] Performed By: #### L [id number] #### [facility] CLIA [id number] [address] [place] [address] [place] 4-Hydroxyphenyllactat e/Creatinine (U) [Molar ratio] 4.3 umol/mmolCr Normal 1.3-23.0 [facility] Comment on above: Order Comment: Speci men Type: URINE SPECIMEN Ordering Facility: [facility] Address: [address] [place], [place] [address] Performed By: #### L [id number] #### [facility] CLIA [id number] [address] [place] [address] [place] 4-Hydroxyphenylpyruva te/Creatinine (U) [Molar ratio] 0.0 umol/mmolCr Normal <=0.0 [facility] Comment on above: Order Comment: Speci men Type: URINE SPECIMEN Ordering Facility: [facility] Address: [address] [place], [place] [address] Performed By: #### L [id number] #### [facility] CLIA [id number] [address] [place] [address] [place] 5-Oxoproline/Creatini ne (U) [Molar ratio] 1.9 umol/mmolCr Normal 0.4-3.1 [facility] Comment on above: Order Comment: Speci men Type: URINE SPECIMEN Ordering Facility: [facility] Address: [address] [place], [place] [address] Performed By: #### L [id number] #### [facility] CLIA [id number] [address] [place] [address] [place] Acetoacetate/Creatini ne (U) [Molar ratio] <0.9 High 0.0-0.5 [facility] Comment on above: Order Comment: Speci men Type: URINE SPECIMEN Ordering Facility: [facility] Address: [address] [place], [place] [address] Performed By: #### L [id number] #### [facility] CLIA [id number] [address] [place] [address] [place] Aconitate/Creatinine (U) [Molar ratio] 14.8 umol/mmolCr Normal 8.5-109.6 [facility] Comment on above: Order Comment: Speci men Type: URINE SPECIMEN Ordering Facility: [facility] Address: [address] [place], [place] [address] Performed By: #### L [id number] #### [facility] CLIA [id number] [address] [place] [address] [place] Adipate/Creatinine (U) [Molar ratio] 3.0 umol/mmolCr Normal 0.3-9.2 [facility] Comment on above: Order Comment: Speci men Type: URINE SPECIMEN Ordering Facility: [facility] Address: [address] [place] [address] Performed By: #### L [id number] #### [facility] CLIA [id number] [address] [place] [address] [facility] [place] Alpha hydroxybutyrate/Creat inine (U) [Molar ratio] <1.0 Normal 0.0-2.7 [facility] Comment on above: Order Comment: Speci men Type: URINE SPECIMEN Ordering Facility: [facility] Address: [address] Performed By: #### L [id number] #### [facility] CLIA [id number] [address] [place] [address] [place] Alpha ketoglutarate/Creatin ine (U) [Molar ratio] 4.9 umol/mmolCr Normal 0.2-42.7 [facility] Comment on above: Order Comment: Speci men Type: URINE SPECIMEN Ordering Facility: [facility] Address: [address] [place] [address] Performed By: #### L [id number] #### [facility] CLIA [id number] [address] [place] [address] [place] Benzoate/Creatinine (U) [Molar ratio] <12.2 Normal 0.0-14.6 [facility] Comment on above: Order Comment: Speci men Type: URINE SPECIMEN Ordering Facility: [facility] Address: [address] [place] [address] Performed By: #### L [id number] #### [facility] CLIA [id number] [address] [place] [address] [place] Beta hydroxybutyrate/Creat inine (U) [Molar ratio] <1.6 Normal 0.1-2.6 [facility] Comment on above: Order Comment: Speci men Type: URINE SPECIMEN Ordering Facility: [facility] Address: [address] Performed By: #### L [id number] #### [facility] CLIA [id number] [address] [place] [address] [place] Butyrylglycine/Creati nine (U) [Molar ratio] 0.0 umol/mmolCr Normal 0.0-0.7 [facility] Comment on above: Order Comment: Speci men Type: URINE SPECIMEN Ordering Facility: [facility] Address: [address] [place] [address] Performed By: #### L [id number] #### [facility] CLIA [id number] [address] [place] [address] [place] Creatinine (U) [Mass/Vol] 53.5 mg/dL Normal 42.2-237.9 [facility] Comment on above: Order Comment: Speci men Type: URINE SPECIMEN Ordering Facility: [facility] Address: [address] [place] [address] Performed By: #### L [id number] #### [facility] CLIA [id number] [address] [place] [address] [place] Ethylmalonate/Creatin ine (U) [Molar ratio] 1.2 umol/mmolCr Normal 0.5-6.2 [facility] Comment on above: Order Comment: Speci men Type: URINE SPECIMEN Ordering Facility: [facility] Address: [address] Performed By: #### L [id number] #### [facility] CLIA [id number] [address] [place] [address] [place] Fumarate/Creatinine (U) [Molar ratio] 0.9 umol/mmolCr Normal 0.3-2.6 [facility] Comment on above: Order Comment: Speci men Type: URINE SPECIMEN Ordering Facility: [facility] Address: [address] [place] [address] Performed By: #### L [id number] #### [facility] CLIA [id number] [address] [place] [address] [place] Glutarate/Creatinine (U) [Molar ratio] 0.1 umol/mmolCr Normal 0.0-1.4 [facility] Comment on above: Order Comment: Speci men Type: URINE SPECIMEN Ordering Facility: [facility] Address: [address] [place] [address] Performed By: #### L [id number] #### [facility] IA [id number] [address] [place] [address] [place] Hexanoylglycine/Creat inine (U) [Molar ratio] 0.1 umol/mmolCr Normal 0.0-0.1 [facility] Comment on above: Order Comment: Speci men Type: URINE SPECIMEN Ordering Facility: [facility] Address: [address] [place] [address] Performed By: #### L [id number] #### [facility] IA [id number] [address] [place] [address] [place] Isobutyrylglycine/Cre atinine (U) [Molar ratio] 0.6 umol/mmolCr Normal 0.0-1.2 [facility] Comment on above: Order Comment: Speci men Type: URINE SPECIMEN Ordering Facility: [facility] Address: [address] [address] [address] Performed By: #### L [id number] #### [facility] IA [id number] [address] [place] [address] [place] Isocitrate/Creatinine (U) [Molar ratio] 48.3 umol/mmolCr Normal 9.1-271.9 [facility] Comment on above: Order Comment: Speci men Type: URINE SPECIMEN Ordering Facility: [facility] Address: [address] [place] [address] Performed By: #### L [id number] #### [facility] CLIA [id number] [address] [place] [address] [place] Lactate/Creatinine (U) [Molar ratio] 9.8 umol/mmolCr Normal 2.9-47.2 [facility] Comment on above: Order Comment: Speci men Type: URINE SPECIMEN Ordering Facility: [facility] Address: [address] Performed By: #### L [id number] #### [facility] CLIA [id number] [address] [place] [address] [place] Malate/Creatinine (U) [Molar ratio] 0.3 umol/mmolCr Normal 0.0-1.1 [facility] Comment on above: Order Comment: Speci men Type: URINE SPECIMEN Ordering Facility: [facility] Address: [address] [place] [address] Performed By: #### L [id number] #### [facility] CLIA [id number] [address] [place] [address] [place] Malonate/Creatinine (U) [Molar ratio] 0.0 umol/mmolCr Normal 0.0-0.1 [facility] Comment on above: Order Comment: Speci men Type: URINE SPECIMEN Ordering Facility: [facility] Address: [address] [place] [address] Performed By: #### L [id number] #### [facility] CLIA [id number] [address] [place] [address] [place] Methylmalonate/Creati nine (U) [Molar ratio] <0.4 Normal 0.0-0.6 [facility] Comment on above: Order Comment: Speci men Type: URINE SPECIMEN Ordering Facility: [facility] Address: [address] [place] [address] Performed By: #### L [id number] #### [facility] CLIA [id number] [address] [place] [address] [place] Methylsuccinate/Creat inine (U) [Molar ratio] 0.2 umol/mmolCr Normal 0.0-1.4 [facility] Comment on above: Order Comment: Speci men Type: URINE SPECIMEN Ordering Facility: [facility] Address: [address] [place] [address] Performed By: #### L [id number] #### [facility] CLIA [id number] [address] [place] [address] OF [facility] N-acetylaspartate/Cre atinine (U) [Molar ratio] 1.6 umol/mmolCr Normal 0.1-8.9 [facility] Comment on above: Order Comment: Speci men Type: URINE SPECIMEN Ordering Facility: [facility] Address: [address] [place] [address] Performed By: #### L [id number] #### [facility] CLIA [id number] [address] [place] [address] N-acetyltyrosine/Crea tinine (U) [Molar ratio] <0.2 Normal 0.0-1.2 [facility] Comment on above: Order Comment: Speci men Type: URINE SPECIMEN Ordering Facility: [facility] Address: [address] [place] [address] Performed By: #### L [id number] #### [facility] CLIA [id number] [address] [place] [address] [place] Oxalate/Creatinine (U) [Molar ratio] <1.0 Normal 0.7-12.4 [facility] Comment on above: Order Comment: Speci men Type: URINE SPECIMEN Ordering Facility: [facility] Address: [address] [place] [address] Performed By: #### L [id number] #### [facility] CLIA [id number] [address] [place] [address] [place] Pyruvate/Creatinine (U) [Molar ratio] <0.2 Normal 0.1-2.6 [facility] Comment on above: Order Comment: Speci men Type: URINE SPECIMEN Ordering Facility: [facility] Address: [address] Performed By: #### L [id number] #### [facility] CLIA [id number] [address] [place] [address] [place] [place] Sebacate (C8)/Creatinine (U) [Molar ratio] 0.0 umol/mmolCr Normal [facility] Comment on above: Order Comment: Speci men Type: URINE SPECIMEN Ordering Facility: [facility] Address: [address] Performed By: #### L [id number] #### [facility] CLIA [id number] [address] [place] [address] [place] Suberate/Creatinine (U) [Molar ratio] 2.5 umol/mmolCr Normal 0.0-7.4 [facility] Comment on above: Order Comment: Speci men Type: URINE SPECIMEN Ordering Facility: [facility] Address: [address] Performed By: #### L [id number] #### [facility] CLIA [id number] [address] [place] [address] [place] Suberylglycine/Creati nine (U) [Molar ratio] 0.0 umol/mmolCr Normal <=0.0 [facility] Comment on above: Order Comment: Speci men Type: URINE SPECIMEN Ordering Facility: [facility] Address: [address] Performed By: #### L [id number] #### [facility] CLIA [id number] [address] [place] [address] [place] Succinate/Creatinine (U) [Molar ratio] 1.8 umol/mmolCr Normal 0.3-27.4 [facility] Comment on above: Order Comment: Speci men Type: URINE SPECIMEN Ordering Facility: [facility] Address: [address] [place] [address] Performed By: #### L [id number] #### [facility] CLIA [id number] [facility] [address] Succinylacetone/Creat inine (U) [Molar ratio] <0.4 Normal <0.4 [facility] Comment on above: Order Comment: Speci men Type: URINE SPECIMEN Ordering Facility: [facility] Address: [address] [place] [address] Performed By: #### L [id number] #### [facility] CLIA [id number] [address] UOA CONSULTATION [facility] Comment on above: Order Comment: Speci men Type: URINE SPECIMEN Ordering Facility: [facility] Address: [address] [place] [address] Result Comment: This urine organic acid analysis [...] and its performance characteristics determined by the [facility]rometabolism [facility]. It has not been cleared or approved by the US Food and Drug Administration. The FDA had determined that such clearance or approval is not necessary. Performed By: #### L [id number] #### [facility] CLIA [id number] [address] [place] [address] UOA REVIEW Reviewed by Patrick Proctor MD, Ph.D ([id number]) [facility] Comment on above: Order Comment: Speci men Type: URINE SPECIMEN Ordering Facility: [facility] Address: [address] Performed By: #### L [id number] #### [facility] CLIA [id number] [address] [place] [address] [place] Uracil/Creatinine (U) [Molar ratio] 0.9 umol/mmolCr Normal 0.0-5.1 [facility] Comment on above: Order Comment: Speci men Type: URINE SPECIMEN Ordering Facility: [facility] Address: [address] [place] [place] [address] Performed By: #### L [id number] #### [facility] CLIA [id number] [address] [place] [address] PYRUVATE+LACTATE BLon 2022 Lactate [Moles/Vol] 1.2 mmol/L Normal 0.5-2.2 [facility] Comment on above: Order Comment: Speci men Type: BLOOD SPECIMEN Ordering Facility: [facility] Address: [address] [place] [address] Result Comment: This test was developed and its performance characteristics determined by [facility] [place] ([facility] It has not been cleared or approved by the FDA. [facility] is regulated under CLIA as qualified to perform high-complexity testing. This test is used for clinical purposes. It should not be regarded as investigational or for research. Performed By: #### L ACPYR #### [facility] CLIA [id number] [address] [place] [address] [place] Pyruvate (Bld) [Moles/Vol] 0.04 mmol/L Normal 0.03-0.10 [facility] Comment on above: Order Comment: Speci men Type: BLOOD SPECIMEN Ordering Facility: [facility] Address: [address] [place] [address] Result Comment: This test was developed and its performance characteristics determined by [facility] Laboratory [facility] [place] ([facility]). It has not been cleared or approved by the FDA. [facility] is regulated under CLIA as qualified to perform high-complexity testing. This test is used for clinical purposes. It should not be regarded as investigational or for research. Performed By: #### L ACPYR #### [facility] CLIA [id number] [address] [facility] [address] [place] [address] [place] T4 Free SerPl-mCncon 023 Free T4 [Mass/Vol] 1.3 ng/dL Normal 0.9-1.7 [facility] Comment on above: Order Comment: Speci chetna Type: BLOOD SPECIMEN Ordering Facility: [facility] Address: [address] [place] [place] [address] Performed By: #### 3 -3, 2156-09 #### [facility] CLIA [id number] [facility] [place], [place] [address] [place] [address] TSH SerPl-aCncon 10-17-2022 TSH Qn 2.050 m[IU]/L Normal 0.270-4.200 [facility] Comment on above: Order Comment: Speci chetna Type: BLOOD SPECIMEN Ordering Facility: [facility] Address: [address] [place] [address] Result Comment: If t he patient is , TSH reference range varies by gestational period: First Trimester (weeks 9-12): 0.180-2.990 mIU/L Second Trimester: 0.110-3.980 mIU/L Third Trimester: 0.480-4.710 mIU/L Olman Mcnamara et al. A Practical Approach for the Verifications and Determination of Site- and Trimester-Specific Reference Intervals for Thyroid Function tests in . Thyroid, 2019:29:3:412-420. Reji E, et al. 2017 Guidelines of the [place] Thy[employer] for the Diagnosis and Management of Thyroid Disease during and the . Thyroid, 2017:27:3:315-389. Performed By: #### 3 016-3, 2156-09 #### [facility] CLIA [id number] [address] [place] [address] [place] VOLTAGE GATED CA IGGon 10-17 P/Q-TYPE CALCIUM CHANNEL ANTIBODY 10.1 pmol/L Normal 0.0-24.5 [facility] Comment on above: Order Comment: Rl basilio Type: BLOOD SPECIMEN Ordering Facility: [facility] Address: [address] [place] [phone] Result Comment: INTE RPRETIVE INFORMATION: P/Q-Type Calcium Channel Antibody 0.0 to 24.5 pmol/L ............. Negative 24.6 to 45.6 pmol/L ............ Indeterminate 45.7 pmol/L or greater.......... Positive This test was developed and its performance characteristics determined by [facility]. It has not been cleared or approved by the US Food and Drug Administration. This test was performed in a CLIA certified laboratory and is intended for clinical purposes. Performed By: [facility] [address] [place] [address] Tobacco Checkout Clerk: Terry Jacome MD, PhD Performed By: #### 3 -3, 1987-08, 2156-09 #### [facility] CLIA [id number] [address] [place] [address] [place] VOLTAGE-GATED POTASSIUM VARGAS ABon 10-17-2022 VOLTAGE-GATED POTASSIUM CHANNEL AB, SER 0 pmol/L Normal 0-31 [facility] Comment on above: Order Comment: Rl basilio Type: BLOOD SPECIMEN Ordering Facility: [facility] Address: [address] [place], [place] [address] Result Comment: INTE RPRETIVE INFORMATION: Voltage-Gated Potassium [...] developed and its performance characteristics determined by [facility]. It has not been cleared or approved by the US Food and Drug Administration. This test was performed in a CLIA certified laboratory and is intended for clinical purposes. Performed By: [facility] [address] [place] [address] Tobacco Checkout Clerk: Terry Jacome MD, PhD Performed By: #### 3 016-3, 1987-, 2157-6 #### [facility] CLIA [id number] [address] [place] [address] [place] NM GASTRIC EMPTYING SOLIDon 09-12-2022 NM GASTRIC EMPTYING SOLID * * *Final Report* * * DATE OF EXAM: Sep 12 2022 2:44PM [facility] - [place] GASTRIC EMPTYING SOLID / [...] 4 HOURS IS CONSISTENT WITH SEVERE GASTROPARESIS. Podiatric Medicine Professor: [facility] Transcribe Date/Time: Sep 12 2022 3:02P Dictated by : LUZ MARINA VÁZQUEZ MD This examination was interpreted and the report reviewed and electronically signed by: LUZ MARINA VÁZQUEZ MD on Sep 12 2022 3:05PM EST [id number] Normal [facility] Stomach Views for gastric emptying solid phase W radionuclide Izabella 09-12-2022 IMPRESSION: EVIDENCE OF DELAYED RATE OF GASTRIC EMPTYING OF SOLID MEAL. ABNORMAL STUDY: 36-50% RETENTION AT 4 HOURS IS CONSISTENT WITH SEVERE GASTROPARESIS. Podiatric Medicine Professor: MINAL Transcribe Date/Time: Sep 12 2022 3:02P Dictated by : LUZ MARINA VÁZQUEZ MD This examination was interpreted and the report reviewed and electronically signed by: LUZ MARINA VÁZQUEZ MD on Sep 12 2022 3:05PM [facility] * * *Final Report* * * DATE OF EXAM: Sep 12 2022 2:44PM [facility] - [place] GASTRIC EMPTYING SOLID / [...] (rapid emptying is <30% retention at 1hr). [facility] Provider, Iain Staton [facility] - 09/12/2022 * * *Final Report* * * DATE OF EXAM: Sep 12 2022 2:44PM [facility] 00[facility] - [place] GASTRIC EMPTYING SOLID / [...] 4 HOURS IS CONSISTENT WITH SEVERE GASTROPARESIS. Podiatric Medicine Professor: MINAL Transcribe Date/Time: Sep 12 2022 3:02P Dictated by : LUZ MARINA VÁZQUEZ MD This examination was interpreted and the report reviewed and electronically signed by: LUZ MARINA VÁZQUEZ MD on Sep 12 2022 3:05PM EST [facility] Study observation (narrative) [facility] Stomach Views for gastric emptying solid phase W radionuclide POOrdered By: [facility]cf Provider on 09-12-2022 [facility] 09-09-2022 HUYEN Telephone (AVXRHI) BELGICA HARPER ([id number]) 1990 F Date Time Provider Department 09/09/22 DIEGO RICKSXRHI During your visit today, we recorded the [...] Encounter Status:Closed by DIEGO RICKS on 09/09/22 [facility] EGD Study observation Miguelito bender 09-02-2022 [facility] Gastroenterology Gastrointestinal Endoscopy Patient Name: Belgica Harper Procedure Date: 08/31/2022 2:51 PM Date of : 1990 Admit Type: Outpatient Age: 31 Room: [facility] 2 Gender: Female Note Status: Rehabilitation Case Coordinator Override Attending MD: Carol Winn MD Procedure: [...] verified by the physician, the nurse, the stock preparer and the internal medicine veterinary technician in the procedure room at 14:52 [...] the gastric (more content not included)... [employer] [facility] SURGICAL PATHOLOGYOrdered By : Jameel Jasmine on 09-01-2022 Case Report Surgical Pathology Report Case: [id number] Authorizing Provider: Carol Winn MD Collected: 08/31/2022 03:04 PM Ordering Location: Ambulatory Surgery Received: 08/31/2022 09:20 PM Pathologist: Jameel Jasmine MD Specimens: A) - SMALL INTESTINE BIOPSY, r/o celiac B) - ANTRUM (STOMACH) BIOPSY, r/o hpylori C) - STOMACH BIOPSY, gastric body r/o hpylori [facility] Work Phone: Diagnosis Comment [id number] N XvhmdCaMKXjpZCpL8Ebcf wiHMzkMM5lUW9zaVbuwFY khFUjBZSoAzKhb8riq123 iLFyn1vsUMMEslwqkRd1x TpzM79ac8F2DhoaF95baB VsELD9XWAjJPQwiLPrPJM tRQJ2AHImvDDdP8ttDJFp OQ1pguqvOZxmNStoFAPjj QH5VNFmfVUgV9NkECIiYR poTHHjicl4HnVgZv8guSP yeTcyMFxwYXJkXHBsYWlu VZXiMmDxSTkzoz6cX19ei NTxQSfyyTcpYBSpq29ho4 rql6LiwR97QZE4MYCgaBn pbYUvGCItbWc8JMP3nJTe UMottTgdkQW4R3d0UKqyt HJhZXBpdGhlbGlhbCBseW 6ttS0hkZIrq6hsAaYGtDP dELCrcZ5nrT5dogZwqeFq ak44FIZskPyvPTx8QTMkT WNpZmljOyBkaWZmZXJlbn GsGWnaF18bz5idFFHnkVm ubuOre182hOTkaX3kwWOe ZSBsYXRlbnQgIGNlbGlhY hRhxUW7UEtgJPZldPZ9aG OsgaMjFFJmONSiQd5qrBd tVMKPN4GHLBNzPB9bJCmm YlBvzBicgMHeA0XgzOYxG J98ZTJuuFmxVXqpjdOxoX RpbmcgSGVsaWNvYmFjdGV wHEL7rH4sgHhcWI2lvvxd z6RcQZMrFmAjE07sngVhG REaJAkkaMpit9Wmw2jlK7 wbo7O4GOwwsg1hbNZouM= = [facility] Work Phone: FINAL DIAGNOSIS q2wqyOQbQPYhbBFsMISd N AhhqlGdCYLmgJHsB9Iztv aiCWfoFI2fBO8uyOtgzUN fdYQoCSZtKgUdm7cyc349 dEGoa3yaBGKEdfaztNk8r HxkX28em1S6RmhyG17iiZ PrCAD9DAFxNILjvFEyMUF qDYX7OYTumQVyJ1vaKCZq ZD5sshhrMMorPXtsCLNml YL1PQGnyHAsK6WjBWNmSV kfRJIidus9ZkTvYe7vbIU yeTcyMFxwYXJkXHBsYWlu QYKlMtCeES4xTCZlSRgzD GludGVzdGluZSwgYmlvcH O2GmnqqB9kSM5AvELnmDQ hqiGjf4TrqtUuFF55R86f XYW0qFMgLA5nsl2kvBK0d Mybc2FuHMBaU9xqbUUwhW AtNILaqzTbc3neK8m3E1L hdGNoeSBpbmNyZWFzZSBp biBpbnRyYWVwaXRoZWxpY ZaneXtenXkvM2e8OATsrT qpGJjdiD0nYKYyRJFCjD1 pNZRbUIAlbqZukL8qGNXf z5JcyWuqhJnsSVHoUGSla FRvDiSsnPIgPBB9lM3gzP Hsk5KrL7qkfAOuSORjjz7 rrICgWEG8yMMnLSksy6Bu tEJtv9gfqW8zEV5Lw2Zot Zd9QJRjh4EcKZVrmNOyDn WhcRQoLMR4sC9kcBZvhpp mcrimtYFew86vvl28rTkz WCFkuYYvfkfhH1bzoF3nX UnhbrPfUi1jQGN7t89rA0 csTYXhJUsfOMTct1PedNr cbGluZSAtSGVsaWNvYmFj aQEoEXQ8mM0hrHNbc5PnU 0lvuVIwCBEgxk5tgDEdPZ F8kVKbIIcyb0MreHVby8g etG4wWK2Mm9VklKo9TBBi f3RfLYZhpDDjBaOcpSFeW YE6tL6knBKqidqlctvvdZ Lvu91ncr32bGhnZVVzuYN phyrtG0qaJUZ3 [facility] Work Phone: Gross Description j8vdoBPnUGCblKQGJMGb M HIvJY9kpBwaaUm4cXhuHZ CvonG0wEEhJYxsy9sjVNS 7w0hjueEHBykpKJQdCOqh PHJxqdqcAjT1CRxtFSXlh ityUHj3ALsvJCEnwRO6TO CqfWCxJ9HvTNHrXE1dckk 6JYJ9PDmzNSPtXuG8PFTz BgBvGgweTQj7BXMamcG8N dm5LRNkOQUwrOPix2E5OQ hynuroJWFpgFBtD329HHa zv0QduRBfBDvyuPCsRWYH QeiqRvneiYxqs0LomLMcP GlkIDUxMDAwIFxcbmggXF t2COMmXDrmaMDvCV6soVu sNdmtqKrqh1ScgZQbKQdh WVBxHIEaPUqmSJQvGC3SR kBkHUDfZEH8ISshYtJ2TP c5YJCHFqMwRqKsBpUyLMQ wFqXqLWx4MEm7PHzSJmZg KNDnImFqWJPjZoB9FPovP yBcXHQgMiBcXGYgQXJpYW rtLOeaySQfIO0ovQjekZK pbiBBLiBTTUFMTCBJTlRF B1KOLrPkXdgTDYLFMTLwo iANClxlcGljTmVzdERvYz EgDQpcbHRycGFyXGxpbjB ccmluMCANClxsdHJjaFxm fnKlRKWgA2WzdeKrKDodW PPrqk4qwIiyCMKbBWJorQ h5wLCnHAJgdAYgKFKsv0G tgVBfUKDpu8U1EPUsj6N5 EKWlL0apEIsgyRbaViD6r yAxLjAgeCAwLjIgeCAwLj RvI60sTXKboVOsjNzkv5J phVv2cNGuWHpnQG6dQSBj RNEiEQX3ZE9lfCrfFYVHJ lxlcGljTmVzdERvYzBcdj T9SHTywASfEEZ0HL4yJVY yqsvhMAXqLHHbLBD4CVpq tH28iXYmRTNyKAJtcGAbu VxwbGFpbiANCntcKlxlcG vyw9OroUSqRQdsVSOzGWD cPNinJLPpRE4QPyByETYn AMN7KKknMyN0VAn2AYZXJ lMgIiAgMzExNDIyNzQiID p2AMt4PHyQDcPeOYGoOtM wBUV0XMV8KRpwAvHvPBWh MiBcXGYgQXJpYWwgXFxmb VUtZN5tgYtpgMYdulgowz U7OXNjABwoWVEwSVJCBYD AVPLiV9VWPKJIDMldEpoW UFNZXHBhciANClxlcGljT mVzdERvYzEgDQpcbHRycG FyXGxpbjBccmluMCANClx bhEOjwQtsbdEaAAOfR1Rj svWpBYbsICOrhh3ejWmwR BYxPRConMe5kMBgAXOleV NqEYVad7LhqNUxYWTea3P 0MFFna6W0EMJdE6pyBFfh fHopGsK2mqGwOcWdsXAaP wGpoUVpBxNhP50jYGGzoL KhwBxws1BvaCz7sETfITs sGI3hIYGtSCHsQSM1CD2t bGluZSANClxlcGljTmVzd ZDkXeHnngC1WWUmgBPnZF W2SL7pTSYvtaluYPSrIOW eXXM0BZlnbI65wQLdYJKa MTZccGFyfVxwbGFpbiANC sutMxzgtPcfo6PcuFJrSJ lkIDUxMDAyIFxcZGIgIE9 CEaJkJIEfFVE1CJhlXhO7 JWb3MPDZSxOhZuEzDiCuL YZhEqXsIEz1MVm9AIqMNw WiTXVjQxVvNSz2RvG1OJh yNyBcXHQgMiBcXGYgQXJp CHwwMQbwlLIlJW1yyPaak NGglvbitlX0UATsFVpnGH JcHGIMV90HU2fnNhuOQEL ZXHBhciANClxlcGljTmVz dERvYzEgDQpcbHRycGFyX GxpbjBccmluMCANClxsdH FuoCipxeXiPSVnJ1TesmC sFEqfEBQxjm2dzRuhJLKi WQAxjIy7pRVoFVLgmLApL OEzf5WruTYxFYBox0I0LR Xpx4Q7GREcI4xwBLemqGj aVxV4ofZqWrtlxUTiFaZs oOAkOgQwL89iRSNwzCOgt Esum2VlyYk4aDBfPIazTS 3gNFYuSPQvYBM0PV5jxQs dQGJzKLPfxlKEWhaIIW7z eSAxMSwgMjAyMyAxOjQxI GEDIV6fhBDoPD9YWIPqga DFMcfjx4YsJVZ5IG8bwkA 5uH2xTUGddmWntt4oOEXl iIBIwPU4XPlpsgBkQ6vko yphLEK1DUAjDNL7E4vbQG PYmbHqAMWAhWK8URmdymP uCW5LNRC4FPb4ZXZuyiDC ClxlcGljTmVzdERvYzBcd tU3MQBpoNJtPZQ8FM4yGN LozarlTTVnSQIyLVK6OUm lnT14gSLjAMSyEJCruZHb cJgthIWmplZLYidfaP9qJ kRfa9gkcVr1HGAJOymbsO LyxthcgvX2LEClv6swzLe lk6HdyJMxLP4jsGsqlB2o ZnMxNiANCn0= [facility] Work Phone: Performing Lab i7vbaMSlYJUmoZJmAmRe M DYqFUKcn9gzLYLzqEWrNo EwMzNcZnRuYmpcdWMxXGR uFbEud4syu334wKKby6wu KDInXsA1hFHqHXSboCQfK 258NIJmHIzby3dnh8FlDO EdvNOaa1R4SEMZwthlnGw 8xJugR97wn0C3BfgbF4nt UOJnRKDrU9IbEW9jFJVzS qi1YEC5SHN0KKNkVXOvH7 SgFM1zVNTayDWzYVr8l0j zdSkrNMZaPBH2j4wwRLpu gkAbPV4igu2oxYj8t2lob zEgRGVmYXVsdCBQYXJhZ3 YkaSqzZe3khYd3tBslYof uPVF7Szb1YW0jxt34hlu5 nRtcXPAwcrvyDbK5RAwoV JAsiompCJt6HTvzBWCpdS P8PVQmgYDmY9GfWScoWA8 sgfz3DCV3EZicAYXnZfT6 NDBcaGVhZGVyeTcyMFxmb 240OIA1JgEzBI6sN4Ren9 D7xE6qnWVcGSSczHGzTfN mDPEvdq7sbXWeAIgcc4Ut PQK3qlM2fUWkjBXzSQVbF Y99Byhtl7ToJarqb0NyP3 6ikFZ7DGofs7waUO8bFuY 3vaMxZSinx2ljpN3zYkE3 NAjbWM2jNN9nQTClgA9ad mxjXHBnYnJkcmhlYWRccG bxvgUyGx4nlLkbTLT3GVm tE3smoB5oNuV9QYfuM2qw jK2yODc7SJfyaIJ1ZJUkv O7qPR1bqjkmn8isLKlxQW xqVDDdfrL7nnWcFTOnuOP xC0WxeD3wWOPzOB6mghrr q0cxVJW8NOtzFRVfKST3P xTlSRLmo3Dbivi8IxZlz8 WpzIFmVSjzB34cl680WYH hlkOiR5uxvLIgddwsqDYk nqioLKxrpcF4ZFLhFDCnM WluXGYxXGZzMjJcbGFuZz EwMzNcaGljaFxmMVxkYmN vMPYuEEroS3vzZaVyPxLv DaZTeHVnng7zmHdgOVgow OQupBIeaAI9oR3wKJXhdf Jnau1uIGGyqZKNhWU5NSd csqNxL8yhqiluXYM7WXRn MOO9M7anKEOIkyBvDCLyH PPhzIZmEWRELBV3YRC0DT QmWHAXQYGxYLN8PQH9FZV wOTRccGFyXHBhclxwYXJk XHBsYWluXGYwXGZzMjRcc XkpaB2zXpKwLdOlIcuuFG 3vZOBsG5ucxUTdULNbJTP hB0kyXtBovJ7owTthWPzp ZjJcZnMyMlxsdHJjaCBMY MTxjlL6o3T6BKldtIYnpc xmMVxmczIyXGxhbmcxMDM dNGxaD2wlPkFbUXCwaYiy MPxfj6UiLQNuAKUjVnEfP WihTGH2w1N1IOuclXYoea HAOzQLBV8ovKOdtbqdQV8 ELlxwYXJ9 [facility] Work Phone: [facility] Work Phone: EGD Study observation Narrat iveon 08-31-2022 Radiology Study observation (narrative) [facility] CITRATE URINE 24HRon 07-11- 023 Citric Acid, U, 24hr 472 mg/24 hr Normal 320-1240 [facility] Comment on above: Result Comment: This test was developed and its performance characteristics determined by [facility]. It has not been cleared or approved by the Food and Drug Administration. Performed By: #### A LPHPHN #### [facility] [address] [place] [address] Dr. Li Nagel Citric Acid, Urine 472 mg/L Normal Undefined [facility] Comment on above: Performed By: #### A LPHPHN #### [facility] [address] [place] [address] Dr. Li Nagel OXALATE 24HR URINEon 07-11-2 023 Oxalates, Urine 19 mg/L Normal Undefined [facility] Comment on above: Performed By: #### O X24HR #### [facility] [address] [place] [address] Dr. Li Nagel Oxalates, Urine 24hr 19 mg/24 hr Normal 4-31 [facility] Comment on above: Performed By: #### O X24HR #### [facility] [address] [place] [address] Dr. Li Nagel MAGNESIUM 24HR URINEon 07-09 Magnesium 24hr Urine 45.0 mg/24 hr Normal 12.0-293.0 [facility] Comment on above: Performed By: #### I MMUN G #### [facility] [address] [place] [address] Dr. Li Nagel Magnesium UR 4.5 mg/dL Normal Not Estab. [facility] Comment on above: Performed By: #### I MMUN G #### [facility] [address] [place] [address] Dr. Li Nagel PHOSPHORUS 24HR URINEon 06-22 Phosphorus, Urine 51.4 mg/dL Normal Not Estab. [facility] Comment on above: Performed By: #### P HOS 24 #### [facility] [address] [place] [address] Dr. Li Nagel Phosphorus, Urine 24hr 514 mg/24 hr Normal 261-1078 [facility] Comment on above: Performed By: #### P HOS 24 #### [facility] [address] [place] [address] Dr. Li Nagel URIC ACID 24 HR URINEon 06-22 Uric Acid, Urine 64.0 mg/dL Normal Not Estab. [facility] Comment on above: Performed By: #### A LPHPHN #### [facility] [address] [place] [address] Dr. Li Nagel Uric Acid, Urine 24hr 640.0 mg/24 hr Normal 173.7-902. 1 [facility] Comment on above: Performed By: #### A LPHPHN #### [facility] [address] [address] [address] Li Nagel CALCIUM 24 HR URINEon 2022 CALC, 24 HR UR 155.0 mg/24 hr Normal 100.0-300.0 [facility] Comment on above: Performed By: #### I MMUN G #### [facility] [address] [place] [address] Dr. Li Nagel UR CALCIUM 15.5 mg/dL Normal 5.1-21.0 [facility] Comment on above: Performed By: #### I MMUN G #### [facility] [address] [place] [address] Dr. Li Nagel UR TOT VOL 1000 ml/24 HR Normal [facility] Comment on above: Performed By: #### I MMUN G #### [facility] [address] [place] [address] Dr. Li Nagel Performed By: #### A LPHPHN #### [facility] [address] [place] [address] Dr. Li Nagel CREA 24 HR URINEon CREA, 24 HR UR 1891.80 mg/24 hr Critically high 800.00 -1,800. 00 [facility] Comment on above: Performed By: #### A LPHPHN #### [facility] [address] [place] [address] Dr. Li Nagel URINE CREAT 189.18 mg/dL Normal 20.00-300.00 [facility] Comment on above: Performed By: #### A LPHPHN #### [facility] [address] [place] [address] Dr. Li Nagel PTH INTACTon 07-08-2022 PTH, Intact 41 pg/mL Normal 15-65 [facility] Comment on above: Performed By: #### H EPACUT #### [facility] [address] [place] [address] Dr. Li Nagel SODIUM 24 HR URINEon 07-08- 023 NA, 24 HR UR 149 mmol/24 hr Normal 40-220 [facility] Comment on above: Performed By: #### A LPHPHN #### [facility] [address] [place] [address] Dr. Li Nagel Sodium (U) [Moles/Vol] 149 mmol/L Critically high 30-90 [facility] Comment on above: Performed By: #### A LPHPHN #### [facility] [address] [place] [address] Dr. Li Nagel BUNon 07-06-2022 Urea nitrogen [Mass/Vol] 11.0 mg/dL Normal 7.0-18.0 [facility] Comment on above: Performed By: #### B UN, URIC, CA, K, NA, CL, CO2, CREA #### [facility] [address] [place] [address] Dr. Li Nagel CALCIUMon 07-06-2022 Calcium [Mass/Vol] 9.0 mg/dL Normal 8.5-10.1 [facility] Comment on above: Performed By: #### B UN, URIC, CA, K, NA, CL, CO2, CREA #### [facility] [address] [place] [address] Dr. Li Nagel CHLORIDEon 07-06-2022 Chloride [Moles/Vol] 107 mmol/L Normal 98-107 [facility] Comment on above: Performed By: #### I MMUN G #### [facility] [address] [place] [address] Dr. Li Nagel CO2on 07-06-2022 CO2 [Moles/Vol] 29.2 mmol/L Normal 21.0-32.0 [facility] Comment on above: Performed By: #### I MMUN G #### [facility] [address] [place] [address] Dr. Li Nagel CREATININEon 07-06-2022 Creatinine [Mass/Vol] 0.97 mg/dL Normal 0.55-1.02 [facility] Comment on above: Performed By: #### B UN, URIC, CA, K, NA, CL, CO2, CREA #### [facility] [address] [place] [address] Dr. Li Nagel EGFR-AF SALVADOREAN >60 Normal >=60 [facility] Comment on above: Performed By: #### B UN, URIC, CA, K, NA, CL, CO2, CREA #### [facility] [address] [place] [address] Dr. Li Nagel EGFR-NON AF SALVADOREAN >60 Normal >=60 [facility] Comment on above: Performed By: #### B UN, URIC, CA, K, NA, CL, CO2, CREA #### [facility] [address] [place] [address] Dr. Li Nagel NAon 07-06-2022 Sodium [Moles/Vol] 143 mmol/L Normal 136-145 [facility] Comment on above: Performed By: #### I MMUN G #### [facility] [address] [place] [address] Dr. Li Nagel POTASSIUMon 07-06-2022 Potassium [Moles/Vol] 3.6 mmol/L Normal 3.5-5.1 [facility] Comment on above: Performed By: #### I MMUN G #### [facility] [address] [place] [address] Dr. Li Nagel URIC ACID SERUMon 07-06-2022 Urate [Mass/Vol] 4.7 mg/dL Normal 2.6-6.0 [facility] Comment on above: Performed By: #### B UN, URIC, CA, K, NA, CL, CO2, CREA #### [facility] [address] [place] [address] Dr. Li Nagel SURGICAL PATHOLOGYOrdered By : Karan Nieto on 07-04-2022 Case Report Surgical Pathology Report Case: [id number] Authorizing Provider: Carol Winn MD Collected: 06/30/2022 11:43 AM Ordering Location: Ambulatory Surgery Received: 06/30/2022 10:42 PM Pathologist: Karan Nieto MD Specimens: A) - DUODENUM BIOPSY, r/o celiac B) - STOMACH BIOPSY, r/o H pylori [facility] Work Phone: Diagnosis Comment x1ceuOSePEBrvHSvOLEo N VwrdgDtTAPeoWUtT8Vyzs wgCLirHU5oCH9gfKzddOE fpQDcDVTdSnTqp7uri029 oELga6tpFJGLkmjwhWh1e GxdI77iy8Y6GuthB18mtD LaFIW6ADIeUNGvrVHnIPA pMCU5SKLmsDXiI6hbPDTk LH9fgcgvOBbaLGpvQAFyk IT8PLRfyRGmC0XxWKAsJV nlMXGpppg0CaWlTt0zfFG yeTcyMFxwYXJkXHBsYWlu ZCSjElQeAS5tEI9hatNhm 2VkIGludHJhZXBpdGhlbG hlhCXaiT1ckI4ysCFbsrl cjM6euDrgKUIsr6TsR2Ud n2CkizzmrO95ymAtXt1sv z9rdBz2cZBvRVYyCSbvRe Rpd8XjirCjrfKpg4GuR2g ckPmcekS7aPShMLOijGzs YyBkaXNlYXNlIGFuZCBvd YiwsnNwg44qfAYdk61vGU B8O7jgTLIcwIJqtNtuPAW hi2Fnb8IgYGjlNiDnyQaz mxEceD4zuEQsoW3dZRswp Tqfv2DwL9WzmgFtgPuxap nzsS1tHWX0lZ3iXIuwAX8 kIHNvbWUgbWVkaWNhdGlv euJmAFCnkN7uS5XnBVJgt jLyjQZ7dE8uPJcqrQfcZE Tozb1dknfleQDpf0Mie6i wX4byHWX2kHWyVFGzpFOz QwHyC68oz9wlXHMuVZPsD pXynDlbfMJrsTt2ZMsrCA mbPGPwGO5xpGNllK== [facility] Work Phone: FINAL DIAGNOSIS k5rsiPZbGRMjdBTgSXTh N SvxirBaSKQwfUNqH9Pmqz prIDvsJO3gUO2lfQflkKB anJLaECLfEvCnm4bzp428 fUOaz3ciSXUCpgflgKj6j QmqA64lh2G4CmgpT08usR HiWPV2ZERsRBFtyUYuOJN oPIY3HNPzqDIfS8jePVKs VH6jdzemNIrjICwvYNJfq CG5DHPqmDRyD8KdZZKaPY ziIAYhcgl2AkLuJt0jvQF yeTcyMFxwYXJkXHBsYWlu KWSmIcPgSF5bHNDuXSHje V1nBKDai3AfiXwiaSDaTZ 6pB06znNjirJ47MYU4mO6 zbZKooGIjb6Wvf3o8zTDy y8YcNCduavzbnH70qtWil rIwsKScS0Q4lcXbJH7vEY miF3PlYWYpDSCxurQsAMV waXRoZWxpYWwgbHltcGhv I5c9WTG3TBLiDZLtc04wY J44HilqRMVapUPwFTPnFZ E4m61bS0liRELcs6DgfDg arWKqJU4zG5YvhFDyDlZv vNjwdGjgVM35E55hPJS8d EDrKCJvdc3spYFkNIT3vW PlOHmhfOwsm4JqO8FgfxK hgAypctkfNJDrf3ZdKSEg XUPsFCG4spq7dXIoWVGfp n0= [facility] Work Phone: Gross Description y6fjiCIkNLGauGXEQRCf M XPgTH8ijFblvVc7pGavKR WrncQ4pAWlOLjxj0bhBNN 6g8syqnVUZipzQWEsJXra LZJoekdhVuQ8TRyqXJAls qdyGSe2XHkyAFTnzBG3RO WzdSNwV7BmBLJsTR2mjrf 4YHA8KZzrKZEdHyJ6DPJn QwPkPjnmBWe3YBQvvbF5U pq0NYQjVYXcpDKbw7W0SC bounjoRAYzaFNeF284BQs gh6JbuJScCTyjbDKgEJMC HmzwRuxfgAvwz9ComGLbN GlkIDUxMDAwIFxcbmggXF z4ORUiHNcfbMHgEV1adVe jXxiqkWosl0WyyJRzAJoi ANSsHXXuLFmxFCEoER2GP lRbARA2Hqa9Qms4VxF7HZ m7ETBXTqTgCbXxDupaZNR 2GWXqGEj2JZy3VWwDFpZ7 TRGpLQdkURWzZCL0DVv0A FxcdCAyIFxcZiBBcmlhbC YiVNYhVEqnzaL0VPCyUAe lJGAwKSSHX3VKChXUIZWN Y7MCYYlnDVPdEKeqFDEdW 26al8WLi2PbIG6YBQv1ps VjrrctaR1hFHDjejPrCFu svLKwE3xgOnExGNVUNKXv kKKpTFTjwfWla2ZyZYoyn iBhcmUgbXVsdGlwbGUgcG fzA7BwVT8rRMHawtpbf48 ppFM9dJZbiLNmSHncobXp LAVtcibmuD6sUB48TQloP W7jLAifUF6jZTEiEbHGg6 PcbRc1AOZ3Bz0ijZQaDLJ unhFmukZjV2Uqr9Z6sIJp OZbyQPAdR10np9MPp4LeO PEgu8pxrZptg7MnjZIhHH hhAXOolAPeTSkdbP8bStO pa8uspBa9DCotihL4HCNc hf2zoOygaS4zXZd0PIjcF XIrF8VhS9VpMDyfXLD5TL AwMiBcXGRiICBPVlIgIiA aHzM3NYE1EDOdMKy7NMdt G7JAXAVmNKL4JWh1KCc3Y qS9ZDm6ZRYZMk8iYIkwWk q7GHIsOWS8DBi3ALDeJPI gMiBcXGYgQXJpYWwgXFxm yRFrNR9jdPmfxDAbeprgu fD0WECjINvjZEKyGGUCW3 8BV6cvRjkCSPQQTPTbbiY NClxlcGljTmVzdERvYzEg DQpcbHRycGFyXGxpbjBcc mluMCANClxsdHJjaFxmcz QvQYZhY8JzztYjFOozSJL pfl1boOewJCCwSGH4k61k tCbbU7HkNF4vUJBkwntsj 86cbSY3vRYiqZDoMXdreq NbLRCmmttrpD0vFM0hHLp qOA8yLLrfYI0bLONqIgCU q1IyjVh6LMD9Vp3rjEMqZ TSinpZeoxDdQ7Uyi5W5yK UuIFxwYXIgDQpccGFyIA0 ZJ5Isj3ZfVPlxvZalOYEk z76rmHWlWt9fgYRqRSJ9S ENsZXZlbGFuZCBDbGluaW ZbATg1BJZuQOCctJqyKRO 6IN4cDVIbBXBjdBFiNGll V1muIMMcQGXtwPPkJV1EF HBhciANCkpUIDAzLzEwLz LzByBzDMx1RgOZTPucSGR aMUvuUDOvI97cu9JFy2Fd QJYzj4pihRvep4ZojNKbH CjuKZKaxFSdWJyulQ2dNj Itu6mgtRx8YXpaodK7YCR zlw9xjJdptL0bWOeqp5pc FUC7RMTjhEPhwWYyOYscg JiaxK1zLjUbCgu4VQizMT KuA5XnU7LhazJ9FEFgZCc uXGZzMTYgDQp9 [facility] Work Phone: Performing Lab n9laoBRoFWMkwIOyYaHw M RGkKUIsp7qbIIUddKXvKs EwMzNcZnRuYmpcdWMxXGR mDnBdi0mtm373iTIzf7hi OKYmMwU1tZVqKVRicNHcI 050WYNlOFtax4knx2YhSV JclTIyw7G8AYLCzsrewKm 8zLhsI61do2Y0TiukQ6gw NNXaRQWrP7DhNH9dOAGeU sf5KTS9MSD6XNCqQVQfJ6 OtTO5bCRXgtULtSFv7k7i ojRrzIJQhOSP5p3ikJIko tfQrRA4fhm9gbYo0a8uah zEgRGVmYXVsdCBQYXJhZ3 NspGniMy1jkDm2lCstZzq cMZL2Zqc7XD7msj92wms0 uWmgICFismzaCwJ6CBthL SDfueqhPMx5GAerHIFvjE S7IESzgVMdL9JwARlzBN4 qjrf4NJR4IEujCQCqGxY0 NDBcaGVhZGVyeTcyMFxmb 318QYQ9XeHwXP7zK3Lms9 L4vE9nfYPxAXLjxDYpArA tZEGywb5clIBaLUqub3He KYL4epC4dWAwyKBdVREdG O77Eswfj6FxTklzk9KlT4 2ddNN4RZgaf9pkVO5kRmX 6ckRyFKdlp6gobP2oNpM7 JIefAU6oSX7cTMQamN6wa mxjXHBnYnJkcmhlYWRccG quwqOvJq6mnOxeKWA8WBg cC5mzhK1bJaT7PIhoK4wz xW6aXLn1AQhvbTL6KZAxz M8jMS4zzzbvz4isANsnJH kjUXRrtkG9yoAsHKIvtKY hS8BpfW5eTHZsMF6sfgma u0klIBF5HOycIDUbMXJ5G oXwMLCkc7Ptjov5NdErm7 JwqJVfAKcmY61jh989TJN bmtIbG1jzrQFakwzaiIUu bydwEVdppmR8ZYUoKLHrA WluXGYxXGZzMjJcbGFuZz EwMzNcaGljaFxmMVxkYmN qUQDkHTrqS9ttPfAmMrHw UoAJmGPdoj0ivOvhWEnpe SWkaQRfrXD7wS1nKQZxvs Guab2zPVLgeANOcSD8FKn lyjAvV0vbtoczZFV2GQTm MFV5O4onYPCDyiImPWEnO IXhvYOoOTVTRLZ6SII5PR BoLJBQHCEkLYN9TLI2VVQ wOTRccGFyXHBhclxwYXJk XHBsYWluXGYwXGZzMjRcc EvjiD1aHlAaYfLtTghiVM 7uVEZlI0steSUrVXEtOYE wF7klHqUdeI8ynEjwOQci ZjJcZnMyMlxsdHJjaCBMY DZszoJ8s1X9NGkbaXGzra xmMVxmczIyXGxhbmcxMDM fDLtqI5rgQuKwKQWfrDln YRhhb5MmTMUuYXEwMkHgJ MluHFV6z8P5LBdhhQAqnq MPPgGGDG1yoAKrjoqyFS6 ELlxwYXJ9 [facility] Work Phone: [facility] Work Phone: EGD Study observation Miguelito bender 06-30-2022 [facility] Gastroenterology Gastrointestinal Endoscopy Patient Name: Belgica Harper Procedure Date: 06/30/2022 11:41 AM Date of : 1990 Admit Type: Outpatient Age: 31 Room: [place] [id number] Gender: Female Note Status: Finalized Attending MD: [...] verified by the physician, the nurse, the stock preparer and the internal medicine veterinary technician in the procedure room at 11:35 [...] gastric ulcers (more content not included)... [facility] Radiology Study observation (narrative) [facility] XR KUB 1 VIEWon 06-30-2022 XR KUB [...] by: JACKSON ADKINS Date: 2022-06-30 07:02 Normal [facility] US ABD RIGHT UPPER QUADRANTo n 06-15-2022 US ABD RIGHT UPPER QUADRANT * * *Final Report* * * DATE OF EXAM: Jun 15 2022 8:13PM [facility] 1032 - US ABD RIGHT UPPER QUADRANT [...] nephrocalcinosis and a few right renal stones. Podiatric Medicine Professor: MINAL Transcribe Date/Time: Jun 16 2022 7:46A Dictated by : MINERVA LIM MD This examination was interpreted and the report reviewed and electronically signed by: MINERVA LIM MD on Jun 16 2022 7:48AM EST [id number] [facility] US ABD RT UPPER QUADRANTon 0 06-15-[address] [facility] [address] ABD/PEL WO IVCONon 2022 Radiology Result ACTIONABLE Abnormal [facility] No Panel Informationon 05-27 [facility] XR CHEST 2V FRONTAL/LATon XR CHEST 2V [...] tissues: Unremarkable. IMPRESSION: No acute radiographic abnormality. Podiatric Medicine Professor: [facility] Transcribe Date/Time: May 27 2022 12:39P Dictated by : MARCELA STILL MD This examination was interpreted and the report reviewed and electronically signed by: MARCELA STILL MD on May 27 2022 12:39PM EST [id number] [facility] GAZWT-5-MATPLXPNVBL PHENOTYP INGon 05-11-2022 Breft-2-Vbngyzfpjfm, Serum 130 mg/dL Normal 100-188 [facility] Comment on above: Result Comment: Perf ormed at: CB Performed By: #### A LPHN #### [facility] [address] [place], [place] [id number] Dr. Li Nagel Phenotype (PI) MM Normal [facility] Comment on above: Result Comment: [...] BN Performed By: #### A LPHN #### [facility] [address] [place] [address] Dr. Li Nagel HEREDITARY HEMOCHROMATOSIS, DNA ANALYSISon 05-11-2022 Hereditary Hemochromatosis Comment Normal [facility] Comment on above: Result Comment: Resu lt: c.845G>A (p.Opa415Vxz) - Not Detected c.187C>G (p.Ivl86Mxj) - Not Detected c.193A>T (p.Xfj73Cxd) - Not Detected Not associated with increased [...] for patients who are homozygous for c.845G>A (p.Wfh700Lmn) and have yet to experience clinical symptoms. . Comments: The most common HFE variants associated with hereditary hemochromatosis are c.845G>A (p.Gzc688Hwk), c.187C>G (p.Mxd23Muv), c.193A>T (p.Pft64Byr). While patients homozygous for c.845G>A (p.Ijk746Myn) are the most likely to present clinical symptoms, less than 10% develop clinically significant iron overload with tissue and organ damage. . Genetic counseling is recommended to discuss the potential clinical implications of positive results, as well as recommendations for testing family members. Genetic Coordinators are available for health care providers to discuss results at [phone]). . Test Details: Three variants analyzed: c.845G>A (p.Pom129Rhy), commonly referred to as C282Y c.187C>G (p.Fsv90Hlz), commonly referred to as H63D c.193A>T (p.Ifi83Nwn), commonly referred to as S65C . Methods/Limitations: [...] developed and its performance characteristics determined by [employer]. It has not been cleared or approved by the Food and Drug Administration. . References: Brodie BR, Yoav PC, Deborah KV, Raymond LW, Ramsey ; [employer] Liver [employer]. Diagnosis and management of hemochromatosis: 2011 practice guideline by the [employer] Liver Diseases. Hepatology. 2011 Oct;54(1):328-43. doi: 10.1002/hep.42277. PMID: 08437444; PMCID: ZQH7244205. Cora G, Olegario P, Fabio DW, Tabatha H, Love Drew, Zev S, Kofi León Keeney S. EMN best practice guidelines for the molecular genetic diagnosis of hereditary hemochromatosis (HH). Eur J Hum Margaret. 2016 Jul;24(4):479-95. doi: 10.1038/ejhg.2015.128. Epub 2014Oct 29. PMID: 60150527; PMCID: OZN3377140. . Kenya Hager, PhD, FAC Dm Reyna, PhD Alexandro Rodriguez, PhD, FAC Jhony Hammond, PhD, FACMG Oumar Avila, PhD, FAC W Leelee Brand, PhD, FAC Pascale Gracia, PhD, [facility] Lala Marvin, PhD, [facility] Performed By: #### H EPACUT #### [facility] [address] [place] [address] Dr. Li Nagel DENY by IFAon 05-06-2022 Antinuclear Antibodies, IFA Negative Normal [facility] Comment on above: Result Comment: Nega tive <1:80 Borderline 1:80 Positive >1:80 ICAP nomenclature: AC-0 For more information about Hep-2 cell patterns use ANApatterns.org, the official website for the International Consensus on Antinuclear Antibody (DENY) Patterns (ICAP). Performed By: #### A LPHPHN #### [facility] [address] [place] [address] Dr. Li Nagel CERULOPLASMINon 05-05-2022 Ceruloplasmin 27.9 mg/dL Normal 19.0-39.0 [facility] Comment on above: Performed By: #### H EPACUT #### [facility] [address] [address] [address] Li Nagel HEPATITIS A AB IGMon 023 Hep A Ab, IgM Negative Normal Negative [facility] Comment on above: Performed By: #### I MMUN G #### [facility] [address] [place] [address] Dr. Li Nagel IMMUNOGLOBULIN G INDEX SERUM OR CSFon 05-05-2022 Albumin [Mass/Vol] 4.8 g/dL Normal 3.8-4.8 [facility] Comment on above: Performed By: #### I MMUN G #### [facility] [address] [address] [address] Li Nagel Albumin, CSF NSPINL Normal [facility] Comment on above: Result Comment: Test not performed. No spinal fluid received. contacted Radha at your facility on 05-05-2022 Performed By: #### I MMUN G #### [facility] [address] [address] [address] Li Nagel CSF IgG Index UPTCAL Normal [facility] Comment on above: Result Comment: Unab le to calculate result since non-numeric result obtained for component test. Performed By: #### I MMUN G #### [facility] [address] [address] [address] Li Nagel IgG, Quant, CSF NSPINL Normal [facility] Comment on above: Result Comment: Test not performed. No spinal fluid received. contacted Radha at your facility on 05-05-2022 Performed By: #### I MMUN G #### [facility] [address] [address] [address] Li Nagel IgG/Alb Ratio, CSF UPTCAL Normal [facility] Comment on above: Result Comment: Unab le to calculate result since non-numeric result obtained for component test. Performed By: #### I MMUN G #### [facility] [address] [address] [address] Li Nagel Immunoglobulin G, Qn, Serum 971 mg/dL Normal 586-1602 [facility] Comment on above: Performed By: #### I MMUN G #### [facility] [address] [address] [address] Li Nagel LIVER-KIDNEY MICROSOMAL (LKM ) ABon 05-05-2022 Liver-Kidney Microsomal Ab 1.3 Units Normal 0.0-20.0 [facility] Comment on above: Result Comment: Nega tive 0.0 - 20.0 Equivocal 20.1 - 24.9 Positive >24.9 . LKM type 1 antibodies are detected in patients with autoimmune hepatitis type 2 and in up to 8% of patients with chronic HCV infection. Performed By: #### H EPACUT #### [facility] [address] [address] [address] Li Nagel MITICHONDRIAL (M2) ANTIBODYo n 05-05-2022 Mitochondrial (M2) Antibody <20.0 Normal 0.0-20.0 [facility] Comment on above: Result Comment: Nega tive 0.0 - 20.0 Equivocal 20.1 - 24.9 Positive >24.9 . Mitochondrial (M2) Antibodies are found in 90-96% of patients with primary biliary cirrhosis. Performed By: #### A LPHPHN #### [facility] [address] [place] [address] Dr. Li Nagel SMOOTH MUSCLE ANTIBODYon Actin (Smooth Muscle) Antibody 9 Units Normal 0-19 [facility] Comment on above: Result Comment: Nega tive 0 - 19 Weak positive 20 - 30 Moderate to strong positive >30 . Actin Antibodies are found in 52-85% of patients with autoimmune hepatitis or chronic active hepatitis and in 22% of patients with primary biliary cirrhosis. Performed By: #### A LPHPHN #### [facility] [address] [place] [address] Dr. Li Nagel FERRITINon 05-03-2022 Ferritin [Mass/Vol] 319.0 ng/mL Critically high 6.2-137.0 [facility] Comment on above: Performed By: #### A LPHPHN #### [facility] [address] [place] [address] Dr. Li Nagel PAP ACOG PANEL 2: 30 to 65on 04-28-2022 . . Normal [facility] Comment on above: Result Comment: Perf ormed at: BA Performed By: #### I MMUN G #### [facility] [address] [place] [address] Dr. Li Nagel Age Gdln ACOG Testing 30-65 Normal [facility] Comment on above: Performed By: #### I MMUN G #### [facility] [address] [place] [address] Dr. Li Nagel DIAGNOSIS: Comment Normal [facility] Comment on above: Result Comment: NEGA TIVE FOR INTRAEPITHELIAL LESION OR MALIGNANCY. Performed at: BA Performed By: #### I MMUN G #### [facility] [address] [address] [address] Li Nagel HPV Aptima Negative Normal Negative [facility] Comment on above: Result Comment: This nucleic acid amplification test detects fourteen high-risk HPV types (16,18,31,33,35,39,45,51,52,56,58,59,66,68) without differentiation. Performed at: =G Performed By: #### I MMUN G #### [facility] [address] [address] [address] Li Nagel HPV Genotype Reflex Comment Normal [facility] Comment on above: Result Comment: Crit eria not met, HPV Genotype not performed. Performed at: BA Performed By: #### I MMUN G #### [facility] [address] [place] [address] Dr. Li Nagel Methodology: Comment Normal [facility] Comment on above: Result Comment: This liquid based ThinPrep(R) pap test was screened with the use of an image guided system. Performed at: WB Performed By: #### I MMUN G #### [facility] [address] [place] [address] Dr. Li Nagel Note: Comment Normal [facility] Comment on above: Result Comment: The [...] Performed By: #### I MMUN G #### [facility] [address] [address] [address] Li Nagel Performed by: Comment Normal [facility] Comment on above: Result Comment: Gretta Holly, Literacy Coordinator (ASCP) Performed at: BA Performed By: #### I MMUN G #### [facility] [address] [place] [address] Dr. Li Nagel Specimen adequacy: Comment Normal [facility] Comment on above: Result Comment: Sati sfactory for evaluation. No endocervical component is identified. Performed at: BA Performed By: #### I MMUN G #### [facility] [address] [address] [address] Li Nagel [facility] Normal Negative [facility] Comment on above: Performed By: #### H EPACUT #### [facility] [address] [address] [address] Li Nagel HCV AB <0.1 Normal 0.0-0.9 [facility] Comment on above: Performed By: #### H EPACUT #### [facility] [address] [address] [address] Li Nagel Hep A Ab, IgM Negative Normal Negative [facility] Comment on above: Performed By: #### H EPACUT #### [facility] [address] [address] [address] Li Nagel Hep B Core Ab, IgM Negative Normal Negative [facility] Comment on above: Performed By: #### H EPACUT #### [facility] [address] [address] [address] Li Nagel Interpretation: Comment Normal [facility] Comment on above: Result Comment: Nega tive Not infected with HCV, unless recent infection is suspected or other evidence exists to indicate HCV infection. Performed By: #### H EPACUT #### [facility] [address] [address] [address] Li Nagel US PELVIS AND TRANSVAGon [...] LAURIE CRUZ Date: 2021-12-22 09:50 Normal [facility] US ABD RT UPPER QUADRANTon 0 12-10-2021 [facility] US PELVIS AND TRANSVAGon US PELVIS AND [...] LAURIE CRUZ Date: 2021-10-28 13:01 Normal [facility] VAGINITIS/VAGINOSIS DNA PROB Kwasi 10-21-2021 Sarah species Negative Normal Negative [facility] Comment on above: Performed By: #### I MMUN G #### [facility] [address] [address] [address] Li Nagel Gardnerella vaginalis Negative Normal Negative [facility] Comment on above: Performed By: #### I MMUN G #### [facility] [address] [address] [address] Li Nagel Trichomonas vaginalis Negative Normal Negative [facility] Comment on above: Performed By: #### I MMUN G #### [facility] [address] [place] [address] Dr. Li Nagel CBC AUTO DIFFon 10-20-2021 BASO # 0.0 103/ul Normal 0.0-0.1 [facility] Comment on above: Performed By: #### A LPHPHN #### [facility] [address] [place] [address] Dr. Li Nagel Basophils/100 WBC (Bld) 0.4 % Normal 0.2-2.0 [facility] Comment on above: Performed By: #### A LPHPHN #### [facility] [address] [place] [address] Dr. Li Nagel EO # 0.2 103/ul Normal 0.0-0.7 [facility] Comment on above: Performed By: #### A LPHPHN #### [facility] [address] [place] [address] Dr. Li Nagel Eosinophils/100 WBC (Bld) 2.6 % Normal 0.9-7.0 [facility] Comment on above: Performed By: #### A LPHPHN #### [facility] [address] [place] [address] Dr. Li Nagel Erythrocyte distribution width (RBC) [Ratio] 12.6 % Normal 11.0-15.0 [facility] Comment on above: Performed By: #### A LPHPHN #### [facility] [address] [place] [address] Dr. Li Nagel Hematocrit (Bld) [Volume fraction] 40.0 % Normal 36.0-48.0 [facility] Comment on above: Performed By: #### A LPHPHN #### [facility] [address] [place] [address] Dr. Li Nagel Hemoglobin (Bld) [Mass/Vol] 13.3 g/dL Normal 12.0-16.0 [facility] Comment on above: Performed By: #### A LPHPHN #### [facility] [address] [address] [address] Li Nagel IG # 0.06 10e3/ul Critically high 0.00-0.03 [facility] Comment on above: Performed By: #### A LPHPHN #### [facility] [address] [address] [address] Li Nagel IG % 0.9 % Critically high 0.0-0.5 [facility] Comment on above: Performed By: #### A LPHPHN #### [facility] [address] [address] [address] Li Nagel LYMPH # 2.2 103/ul Normal 1.2-3.8 [facility] Comment on above: Performed By: #### A LPHPHN #### [facility] [address] [place] [address] Dr. Li Nagel Lymphocytes/100 WBC (Bld) 31.0 % Normal 20.5-60.0 [facility] Comment on above: Performed By: #### A LPHPHN #### [facility] [address] [place] [address] Dr. Li Nagel MANUAL DIFF REQ NO Normal [facility] Comment on above: Performed By: #### A LPHPHN #### [facility] [address] [place] [address] Dr. Li Nagel MCH (RBC) [Entitic mass] 31.4 pg Normal 26.7-34.0 [facility] Comment on above: Performed By: #### A LPHPHN #### [facility] [address] [place] [address] Dr. Li Nagel MCHC (RBC) [Mass/Vol] 33.3 g/dL Normal 29.9-35.2 [facility] Comment on above: Performed By: #### A LPHPHN #### [facility] [address] [place] [address] Dr. Li Nagel MCV (RBC) [Entitic vol] 94.3 fL Normal 81.0-99.0 [facility] Comment on above: Performed By: #### A LPHPHN #### [facility] [address] [place] [address] Dr. Li Nagel MONO # 0.5 103/ul Normal 0.3-0.8 [facility] Comment on above: Performed By: #### A LPHPHN #### [facility] [address] [place] [address] Dr. Li Nagel Monocytes/100 WBC (Bld) 6.9 % Normal 1.7-12.0 [facility] Comment on above: Performed By: #### A LPHPHN #### [facility] [address] [place] [address] Dr. Li Nagel NEUT # 4.1 103/ul Normal 1.4-6.5 [facility] Comment on above: Performed By: #### A LPHPHN #### [facility] [address] [place] [address] Dr. Li Nagel Neutrophils/100 WBC (Bld) 58.2 % Normal 43.0-75.0 [facility] Comment on above: Performed By: #### A LPHPHN #### [facility] [address] [place] [address] Dr. Li Nagel Platelet mean volume (Bld) [Entitic vol] 11.0 fL Normal 9.5-13.5 [facility] Comment on above: Performed By: #### A LPHPHN #### [facility] [address] [place] [address] Dr. Li Nagel PLT 211 103/ul Normal 150-450 [facility] Comment on above: Performed By: #### A LPHPHN #### [facility] [address] [place] [address] Dr. Li Nagel RBC 4.24 106/ul Normal 4.20-5.40 [facility] Comment on above: Performed By: #### A LPHPHN #### [facility] [address] [place] [address] Dr. Li Nagel WBC 7.0 103/ul Normal 4.0-11.0 [facility] Comment on above: Performed By: #### A LPHPHN #### [facility] [address] [address] [address] ABD/PELV W CONon [...] MARIA DOLORES MOON Date: 2021-10-20 14:53 Normal [facility] OCC BLD IMMUNO SCREENon 09-23 OCCULT BLOOD Negative Normal NEGATIVE [facility] Comment on above: Performed By: #### O BSCRN #### [facility] [address] [address] [address] Li Nagel PROF 14(COMP METB)on 022 Albumin [Mass/Vol] 3.7 g/dL Normal 3.4-5.0 [facility] Comment on above: Performed By: #### A LPHPHN #### [facility] [address] [address] [address] Li Nagel Albumin/Globulin [Mass ratio] 1.2 {ratio} Normal [facility] Comment on above: Performed By: #### A LPHPHN #### [facility] [address] [address] [address] Li Nagel ALP [Catalytic activity/Vol] 86 U/L Normal 46-116 [facility] Comment on above: Performed By: #### A LPHPHN #### [facility] [address] [address] [address] Li Nagel ALT [Catalytic activity/Vol] 109 U/L Critically high 14-59 [facility] [facility] Comment on above: Performed By: #### A LPHPHN #### [facility] [address] [address] [address] Li Nagel Anion gap [Moles/Vol] 7.8 mmol/L Normal [facility] Comment on above: Performed By: #### A LPHPHN #### [facility] [address] [address] [address] Li Nagel AST [Catalytic activity/Vol] 57 U/L Critically high 15-37 [facility] Comment on above: Performed By: #### A LPHPHN #### [facility] [address] [address] [address] Li Nagel Bilirubin [Mass/Vol] 0.4 mg/dL Normal 0.2-1.0 [facility] Comment on above: Performed By: #### A LPHPHN #### [facility] [address] [address] [address] Li Nagel Calcium [Mass/Vol] 8.9 mg/dL Normal 8.5-10.1 [facility] Comment on above: Performed By: #### A LPHPHN #### [facility] [address] [address] [address] Li Nagel Chloride [Moles/Vol] 104 mmol/L Normal 98-107 [facility] Comment on above: Performed By: #### A LPHPHN #### [facility] [address] [address] [address] Li Nagel CO2 [Moles/Vol] 27.7 mmol/L Normal 21.0-32.0 [facility] Comment on above: Performed By: #### A LPHPHN #### [facility] [address] [address] [address] Li Nagel Creatinine [Mass/Vol] 0.78 mg/dL Normal 0.55-1.02 [facility] Comment on above: Performed By: #### A LPHPHN #### [facility] [address] [address] [address] Li Nagel EGFR-AF SALVADOREAN >60 Normal >=60 [facility] Comment on above: Performed By: #### A LPHPHN #### [facility] [address] [place] [address] Dr. Li Nagel EGFR-NON AF SALVADOREAN >60 Normal >=60 [facility] Comment on above: Performed By: #### A LPHPHN #### [facility] [address] [place] [address] Dr. Li Nagel Globulin (S) [Mass/Vol] 3.2 g/dL Normal [facility] Comment on above: Performed By: #### A LPHPHN #### [facility] [address] [place] [address] Dr. Li Nagel Glucose [Mass/Vol] 104 mg/dL Normal 74-106 [facility] Comment on above: Performed By: #### A LPHPHN #### [facility] [address] [place] [address] Dr. Li Nagel Potassium [Moles/Vol] 3.5 mmol/L Normal 3.5-5.1 [facility] Comment on above: Performed By: #### A LPHPHN #### [facility] [address] [place] [address] Dr. Li Nagel Protein [Mass/Vol] 6.9 g/dL Normal 6.4-8.2 [facility] Comment on above: Performed By: #### A LPHPHN #### [facility] [address] [place] [address] Dr. iL Nagel Sodium [Moles/Vol] 136 mmol/L Normal 136-145 [facility] Comment on above: Performed By: #### A LPHPHN #### [facility] [address] [address] [address] Li Nagel Urea nitrogen [Mass/Vol] 10.0 mg/dL Normal 7.0-18.0 [facility] Comment on above: Performed By: #### A LPHPHN #### [facility] [address] [address] [address] Li Nagel Urea nitrogen/Creatinine [Mass ratio] 12.8 mg/mg Normal [facility] Comment on above: Performed By: #### A LPHPHN #### [facility] [address] [address] [address] Li Nagel XR LSPINE MIN 4 [...] by: LAURIE CRUZ Date: 2021-09-06 15:05 Normal [facility] [place] HEPATOBILIARY SCAN W EFon 08-27-2021 [...] by: JACKSON ADKINS Date: 2021-08-27 16:05 Normal [facility] 08-20-2021 Albumin [Mass/Vol] 5.0 g/dL Normal 3.6-5.1 [facility] [place] [facility] Comment on above: Performed By: #### C MP #### [facility] [address], [place] [id number] Albumin/Globulin [Mass ratio] 2.1 {ratio} Normal 1.0-2.5 [facility] Comment on above: Performed By: #### C MP #### [facility] [address], [place] [id number] ALP [Catalytic activity/Vol] 110 U/L Normal 35-119 [facility] Specialist Comment on above: Performed By: #### C MP #### [facility] [address], [place] [id number] ALT [Catalytic activity/Vol] 71 U/L High 6-33 [facility] Comment on above: Result Comment: 03/24 Female reference range changed. Performed By: #### C MP #### [facility] [address], [place] [id number] Anion gap [Moles/Vol] 17 mmol/L Normal 12-20 [facility] Specialist Comment on above: Result Comment: Effe ctive 04/29/2019 reference range changed. Performed By: #### C MP #### [facility] [address], [place] [id number] AST [Catalytic activity/Vol] 69 U/L High 9-34 [facility] Comment on above: Performed By: #### C MP #### [facility] [address], [place] [id number] BUN/CREA 11 Ratio Normal 6-22 [facility] Comment on above: Performed By: #### C MP #### [facility] [address], [place] [id number] Calcium [Mass/Vol] 9.8 mg/dL Normal 8.6-10.2 Casi [facility] [place] [facility] Comment on above: Performed By: #### C MP #### [facility] [address], [place] [id number] Chloride [Moles/Vol] 99 mmol/L Normal 98-107 [facility] Specialist Comment on above: Performed By: #### C MP #### [facility] [address], [place] [id number] CO2 [Moles/Vol] 25 mmol/L Normal 20-31 [facility] Comment on above: Performed By: #### C MP #### [facility] [address], [place] [id number] Creatinine [Mass/Vol] 0.9 mg/dL Normal 0.6-1.4 [facility] Comment on above: Performed By: #### C MP #### [facility] [address], [place] [id number] eGFRAA 94 mL/min/1.73m2 Normal >60 [facility] Comment on above: Performed By: #### C MP #### [facility] [address], [place] [id number] eGFRNAA 78 mL/min/1.73m2 Normal >60 [facility] Comment on above: Performed By: #### C MP #### [facility] [address], [place] [id number] Globulin (S) [Mass/Vol] 2.4 g/dL Normal 1.9-3.7 [facility] Comment on above: Performed By: #### C MP #### [facility] [address], [place] [id number] Glucose [Mass/Vol] 100 mg/dL High 65-99 [facility] Specialist Comment on above: Result Comment: For FASTING Glucose --- ADA reference ranges: Normal 65-99 mg/dl Prediabetes 100-125 Diabetes >/= 126 Performed By: #### C MP #### [facility] [address], [place] [id number] Potassium [Moles/Vol] 3.8 mmol/L Normal 3.5-5.5 [facility] Comment on above: Performed By: #### C MP #### [facility] [address], [place] [id number] Protein [Mass/Vol] 7.4 g/dL Normal 6.1-8.1 [facility] Comment on above: Performed By: #### C MP #### [facility] [address], [place] [id number] Sodium [Moles/Vol] 137 mmol/L Normal 135-146 [facility] Comment on above: Performed By: #### C MP #### [facility] [address], [place] [id number] TBIL <0.3 Normal [facility] Comment on above: Performed By: #### C MP #### [facility] [address], [place] [id number] Urea nitrogen [Mass/Vol] 10 mg/dL Normal 7-25 [facility] Comment on above: Performed By: #### C MP #### [facility] [address], [place] [id number] US SINGLE QUAD RT UPPERon US SINGLE [...] by: JACKSON ADKINS Date: 2021-08-16 08:19 Normal [facility] Complete Blood Count with Au to Diffon 08-06-2021 Basophils (Bld) [#/Vol] 0.03 10*3/uL Normal 0.00-0.20 [facility] Comment on above: Performed By: #### C MP, CBCAD, LIPD #### [facility] [address], [place] [id number] Basophils/100 WBC (Bld) 0.4 % Normal [facility] Comment on above: Performed By: #### C MP, CBCAD, LIPD #### [facility] [address], [place] [id number] Eosinophils (Bld) [#/Vol] 0.11 10*3/uL Normal 0.02-0.50 [facility] Comment on above: Performed By: #### C MP, CBCAD, LIPD #### [facility] [address], [place] [id number] Eosinophils/100 WBC (Bld) 1.4 % Normal [facility] Comment on above: Performed By: #### C MP, CBCAD, LIPD #### [facility] [address], [place] [id number] Erythrocyte distribution width (RBC) [Ratio] 12.6 % Normal 11.0-15.0 [facility] Comment on above: Performed By: #### C MP, CBCAD, LIPD #### [facility] [address], [place] [id number] Hematocrit (Bld) [Volume fraction] 44.2 % Normal 35.0-47.0 [facility] Comment on above: Performed By: #### C MP, CBCAD, LIPD #### [facility] [address], [place] [id number] Hemoglobin (Bld) [Mass/Vol] 14.8 g/dL Normal 11.6-15.5 [facility] Comment on above: Performed By: #### C MP, CBCAD, LIPD #### [facility] [address], [place] [id number] Lymphocytes (Bld) [#/Vol] 2.2 10*3/uL Normal 0.9-3.9 [facility] Comment on above: Performed By: #### C MP, CBCAD, LIPD #### [facility] [address], [place] [id number] Lymphocytes/100 WBC (Bld) 28.1 % Normal [facility] Comment on above: Performed By: #### C MP, CBCAD, LIPD #### [facility] [address], [place] [id number] MCH (RBC) [Entitic mass] 31.2 pg Normal 27.0-33.0 [facility] Comment on above: Performed By: #### C MP, CBCAD, LIPD #### [facility] [address], [place] [id number] MCHC (RBC) [Mass/Vol] 33.5 g/dL Normal 32.0-36.0 [facility] Comment on above: Performed By: #### C MP, CBCAD, LIPD #### [facility] [address] [facility] [place] [id number] MCV (RBC) [Entitic vol] 93 fL Normal 80-100 [facility] Comment on above: Performed By: #### C MP, CBCAD, LIPD #### [facility] [address], [place] [id number] Monocytes (Bld) [#/Vol] 0.4 10*3/uL Normal 0.2-0.9 [facility] Comment on above: Performed By: #### C MP, CBCAD, LIPD #### [facility] [address], [place] [id number] Monocytes/100 WBC (Bld) 4.8 % Normal [facility] Comment on above: Performed By: #### C MP, CBCAD, LIPD #### [facility] [address], [place] [id number] Neutrophils (Bld) [#/Vol] 5.1 10*3/uL Normal 1.5-7.8 [facility] Comment on above: Performed By: #### C MP, CBCAD, LIPD #### [facility] [address], [place] [id number] Neutrophils/100 WBC (Bld) 64.3 % Normal [facility] Comment on above: Performed By: #### C MP, CBCAD, LIPD #### [facility] [address] [facility] [place] [id number] Platelet mean volume (Bld) [Entitic vol] 11.00 fL Normal 7.50-12.50 [facility] [place] [facility] Comment on above: Performed By: #### C MP, CBCAD, LIPD #### [facility] [address], [place] [id number] Platelets (Bld) [#/Vol] 296 10*3/uL Normal 140-400 [facility] Specialist Comment on above: Performed By: #### C MP, CBCAD, LIPD #### [facility] [address], [place] [id number] RBC (Bld) [#/Vol] 4.74 10*6/uL Normal 3.90-5.20 [facility] Specialist Comment on above: Performed By: #### C MP, CBCAD, LIPD #### [facility] [address], [place] [id number] RDW-SD 43.4 fL Normal 37.0-50.0 [facility] Comment on above: Performed By: #### C MP, CBCAD, LIPD #### [facility] [address], [place] [id number] WBC (Bld) [#/Vol] 8.0 10*3/uL Normal 3.8-11.0 [facility] Comment on above: Performed By: #### C MP, CBCAD, LIPD #### [facility] [address], [place] [id number] Comprehensive Metabolic Pane [facility] 08-06-2021 Albumin [Mass/Vol] 5.2 g/dL High 3.6-5.1 [facility] Comment on above: Performed By: #### C MP, CBCAD, LIPD #### [facility] [address], [place] [id number] Albumin/Globulin [Mass ratio] 2.1 {ratio} Normal 1.0-2.5 [facility] Comment on above: Performed By: #### C MP, CBCAD, LIPD #### [facility] [address], [place] [id number] ALP [Catalytic activity/Vol] 115 U/L Normal 35-119 [facility] Comment on above: Performed By: #### C MP, CBCAD, LIPD #### [facility] [address], [place] [id number] ALT [Catalytic activity/Vol] 101 U/L High 6-33 [facility] Comment on above: Result Comment: 03/24 Female reference range changed. Performed By: #### C MP, CBCAD, LIPD #### [facility] [address], [place] [id number] Anion gap [Moles/Vol] 20 mmol/L Normal 12-20 [facility] Comment on above: Result Comment: Effe ctive 04/29/2019 reference range changed. Performed By: #### C MP, CBCAD, LIPD #### [facility] [address], [place] [id number] AST [Catalytic activity/Vol] 96 U/L High 9-34 [facility] Comment on above: Performed By: #### C MP, CBCAD, LIPD #### [facility] [address], [place] [id number] BUN/CREA 9 Ratio Normal 6-22 [facility] Comment on above: Performed By: #### C MP, CBCAD, LIPD #### [facility] [address], [place] [id number] Calcium [Mass/Vol] 9.9 mg/dL Normal 8.6-10.2 [facility] Comment on above: Performed By: #### C MP, CBCAD, LIPD #### [facility] [address], [place] [id number] Chloride [Moles/Vol] 106 mmol/L Normal 98-107 [facility] Comment on above: Performed By: #### C MP, CBCAD, LIPD #### [facility] [address], [place] [id number] CO2 [Moles/Vol] 21 mmol/L Normal 20-31 [facility] Comment on above: Performed By: #### C MP, CBCAD, LIPD #### [facility] [address], [place] [id number] Creatinine [Mass/Vol] 0.9 mg/dL Normal 0.6-1.4 [facility] Comment on above: Performed By: #### C MP, CBCAD, LIPD #### [facility] [address], [place] [id number] eGFRAA 90 mL/min/1.73m2 Normal >60 [facility] Specialist Comment on above: Performed By: #### C MP, CBCAD, LIPD #### [facility] [address], [place] [id number] eGFRNAA 74 mL/min/1.73m2 Normal >60 [facility] Specialist Comment on above: Performed By: #### C MP, CBCAD, LIPD #### [facility] [address], [place] [id number] Globulin (S) [Mass/Vol] 2.5 g/dL Normal 1.9-3.7 [facility]ist Comment on above: Performed By: #### C MP, CBCAD, LIPD #### [facility] [address], [place] [id number] Glucose [Mass/Vol] 127 mg/dL High 65-99 [facility] Specialist Comment on above: Result Comment: For FASTING Glucose --- ADA reference ranges: Normal 65-99 mg/dl Prediabetes 100-125 Diabetes >/= 126 Performed By: #### C MP, CBCAD, LIPD #### [facility] [address], [place] [id number] Potassium [Moles/Vol] 4.2 mmol/L Normal 3.5-5.5 [facility] Comment on above: Performed By: #### C MP, CBCAD, LIPD #### [facility] [address], [place] [id number] Protein [Mass/Vol] 7.7 g/dL Normal 6.1-8.1 [facility] Comment on above: Performed By: #### C MP, CBCAD, LIPD #### [facility] [address], [place] [id number] Sodium [Moles/Vol] 143 mmol/L Normal 135-146 [facility] Comment on above: Performed By: #### C MP, CBCAD, LIPD #### [facility] [address], [place] [id number] TBIL <0.[address] [facility] Specialist Comment on above: Performed By: #### C MP, CBCAD, LIPD #### [facility] [address], [place] [id number] Urea nitrogen [Mass/Vol] 8 mg/dL Normal 7-25 [facility]ist Comment on above: Performed By: #### C MP, CBCAD, LIPD #### [facility] [address], [place] [id number] Hemoglobin A1Con 08-06-[address] [facility] Specialist Comment on above: Performed By: #### A 1C #### [facility] [address], [place] [id number] HbA1c (Bld) [Mass fraction] 5.1 % Normal 4.0-6.0 [facility]ist Comment on above: Performed By: #### A 1C #### [facility] [address], [place] [id number] Lipid Panelon 08-06-2021 Cholesterol [Mass/Vol] 190 mg/dL Normal 125-200 [facility] Comment on above: Result Comment: Low risk < 200mg/dL Borderline risk 201-239 mg/dl High risk > or equal to 240 Performed By: #### C NORBERTO, CBCAD, LIPD #### [facility] [address], [place] [id number] Cholesterol in HDL [Mass/Vol] 64 mg/dL Normal >40 [facility] Specialist Comment on above: Result Comment: High Cardiovascular Risk HDL <40 mg/dL Low Cardiovascular Risk HDL > or equal to 60 mg/dl Performed By: #### C MP, CBCAD, LIPD #### [facility] [address], [place] [id number] Cholesterol in LDL [Mass/Vol] 107 mg/dL Normal [facility] Specialist Comment on above: Result Comment: LDL ATP III CLASSIFICATION LDL less than 100 mg/dl Optimal LDL 100-129 mg/dl Near or above optimal LDL 130-159 Borderline high LDL 160-189 High LDL greater than 189 mg/dl Very High Performed By: #### C MP, CBCAD, LIPD #### [facility] [address] [facility] [place] [id number] Cholesterol in VLDL [Mass/Vol] 19 mg/dL Normal [place] [facility] Comment on above: Performed By: #### C MP, CBCAD, LIPD #### [facility] [address], [place] [id number] Cholesterol.total/Cho lesterol in HDL [Mass ratio] 3 {ratio} Normal [facility] Specialist Comment on above: Performed By: #### C MP, CBCAD, LIPD #### [facility] [address], [place] [id number] Triglyceride [Mass/Vol] 95 mg/dL Normal 30-150 [facility] Comment on above: Result Comment: TRIG ATPIII CLASSIFICATIONS TRIG less than 150 mg/dl Normal TRIG 150-199 mg/dl Borderline High TRIG 200-500 mg/dl High TRIG greather than 500 mg/dl Very High Performed By: #### C MP, CBCAD, LIPD #### [facility] [address], [place] [id number] Q - CULTURE,URINE,ROUTINEon 06-04-2021 CULTURE, URINE, ROUTINE SEE NOTE Normal [facility] Specialist Comment on above: Order Comment: [facility] performed at: [facility], [address] [place] [address], [address] [place] [address], [id number], Tobacco Checkout Clerk: Tim Dotson MD [facility] Collection Date/Time: [facility] Results Received Date/Time: [facility] Reported Date/Time: Result Comment: CULT URE, URINE, ROUTINE Micro Number: [id number] Test Status: Final Specimen Source: Not given Specimen Quality: Adequate Result: Mixed genital marie isolated. These superficial bacteria are not indicative of a urinary tract infection. No further organism identification is warranted on this specimen. If clinically indicated, recollect clean-catch, mid-stream urine and transfer immediately to Urine Culture Transport Tube. Performed By: #### [id number] #### [facility] [address] [place] [address] MRI LUMBAR SPINE WO CONTRAST on 11-06-2018 [...] Naren Lagos MD 11/06/18 Final result Normal [facility] Vital Signs Date Time Vital Sign Value Performing Clinician Facility 02-06-2024 09:14-0400 Body height 157.5 cm Giovani Hagen MD Work Phone: [facility] 02-06-2024 09:14-0400 Body mass index (BMI) [Ratio] 34.93 kg/m2 Giovani Hagen MD Work Phone: [facility] 02-06-2024 09:14-0400 Body weight 86.64 kg Giovani Hagen MD Work Phone: [facility] 02-06-2024 09:14-0400 Diastolic blood pressure 88 mm[Hg] Giovani Hagen MD Work Phone: [facility] 02-06-2024 09:14-0400 Heart rate 106 /min Giovani Hagen MD Work Phone: [facility] 02-06-2024 09:14-0400 SaO2% (BldA) [Mass fraction] 99 % Giovani Hagen MD Work Phone: [facility] 02-06-2024 09:14-0400 Systolic blood pressure 130 mm[Hg] Giovani Hagen MD Work Phone: [facility] 12-28-2023 15:17-0400 Blood Pressure Location BHAVESH DEJESUS [facility] 12-28-2023 15:17-0400 Diastolic blood pressure 100 mm[Hg] BHAVESH DEJESUS [facility] 12-28-2023 15:17-0400 Heart rate 101 /min BHAVESH DEJESUS [facility] 12-28-2023 15:17-0400 Respiratory rate 18 /min BHAVESH DEJESUS [facility] 12-28-2023 15:17-0400 Systolic blood pressure 146 mm[Hg] BHAVESH DEJESUS [facility] 12-19-2023 15:01-0400 Body height 157.5 cm Solo Mora MD Work Phone: [facility] 12-19-2023 15:01-0400 Body mass index (BMI) [Ratio] 34.39 kg/m2 Solo Mora MD Work Phone: [facility] 12-19-2023 15:01-0400 Body weight 85.28 kg Solo Mora MD Work Phone: [facility] 12-19-2023 15:01-0400 Diastolic blood pressure 91 mm[Hg] Solo Mora MD Work Phone: [facility] 12-19-2023 15:01-0400 Heart rate 94 /min Solo Mora MD Work Phone: [facility] 12-19-2023 15:01-0400 Systolic blood pressure 127 mm[Hg] Solo Mora MD Work Phone: [facility] 11-02-2022 13:10-0400 Body height 157.5 cm Samuel Freeman MD Work Phone: [facility] 11-02-2022 13:10-0400 Body weight 71 kg Samuel Freeman MD Work Phone: [facility] 11-02-2022 13:10-0400 Diastolic blood pressure 97 mm[Hg] Samuel Freeman MD Work Phone: [facility] 11-02-2022 13:10-0400 Heart rate 100 /min Samuel Freeman MD Work Phone: [facility] 11-02-2022 13:10-0400 Systolic blood pressure 141 mm[Hg] Samuel Freeman MD Work Phone: [facility] 08-31-2022 15:30-0400 Diastolic blood pressure 91 mm[Hg] Carol Winn MD Work Phone: [facility] 08-31-2022 15:30-0400 Heart rate 99 /min Carol Winn MD Work Phone: [facility] 08-31-2022 15:30-0400 Respiratory rate 24 /min Carol Winn MD Work Phone: [facility] 08-31-2022 15:30-0400 SaO2% (BldA) [Mass fraction] 97 % Carol Winn MD Work Phone: [facility] 08-31-2022 15:30-0400 Systolic blood pressure 140 mm[Hg] Carol Winn MD Work Phone: [facility] 08-31-2022 14:10-0400 Body height 157.5 cm Carol Winn MD Work Phone: [facility] 08-31-2022 14:10-0400 Body mass index (BMI) [Ratio] 33.84 kg/m2 Carol Winn MD Work Phone: [facility] 08-31-2022 14:10-0400 Body weight 83.92 kg Carol Winn MD Work Phone: [facility] 06-30-2022 12:40-0500 Diastolic blood pressure 85 mm[Hg] Carol Winn MD Work Phone: [facility] 06-30-2022 12:40-0500 Heart rate 70 /min Carol Winn MD Work Phone: [facility] 06-30-2022 12:40-0500 Respiratory rate 12 /min Carol Winn MD Work Phone: [facility] 06-30-2022 12:40-0500 SaO2% (BldA) [Mass fraction] 100 % Carol Winn MD Work Phone: [facility] 06-30-2022 12:40-0500 Systolic blood pressure 120 mm[Hg] Carol Winn MD Work Phone: [facility] 06-30-2022 11:18-0500 Body height 157.5 cm Carol Winn MD Work Phone: [facility] 06-30-2022 11:18-0500 Body mass index (BMI) [Ratio] 33.84 kg/m2 Carol Winn MD Work Phone: [facility] 06-30-2022 11:18-0500 Body weight 83.92 kg Carol Winn MD Work Phone: [facility] 05-27-2022 11:29-0500 Body weight 85.73 kg Carol Winn MD Work Phone: [facility] 05-27-2022 11:29-0500 Diastolic blood pressure 92 mm[Hg] Carol Winn MD Work Phone: [facility] 05-27-2022 11:29-0500 Heart rate 102 /min Carol Winn MD Work Phone: [facility] 05-27-2022 11:29-0500 Systolic blood pressure 145 mm[Hg] Carol Winn MD Work Phone: [facility] 05-03-2022 15:30-0500 Body height 158.75 cm Imad Asaad Other [employer] Other 05-03-2022 15:30-0500 Body mass index (BMI) [Ratio] 34.55 kg/m2 Imad Asaad Other [employer] Other 05-03-2022 15:30-0500 Body weight 87.09 kg Imad Asaad Other [employer] Other 05-03-2022 15:30-0500 Diastolic blood pressure 91 mm[Hg] Imad Asaad Other [employer] Other 05-03-2022 15:30-0500 Systolic blood pressure 130 mm[Hg] Imad Asaad Other [employer] Other 05-03-2022 14:47-0500 Body weight 0 kg MD Giovani Hagen Work Phone: [facility] Encounters Encounter Date Encounter Type Care Provider Facility Start: 12-30-2024 ambulatory Madhuri MISHRA Facility:[facility] Start: 03-11-2024 End: 03-11-2024 ambulatory Arun Hernadez [employer] [employer] [facility] Comment on above: Cervical radiculopathy (Primary Dx) Start: 03-11-2024 End: 03-11-2024 Bamboo flowsheet Arun Brink SHAKE BACKBOARD NOTCHER [facility] Start: 03-11-2024 End: 03-11-2024 Bamboo flowsheet Arun Brink SHAKE BACKBOARD NOTCHER [facility] Start: 03-07-2024 End: 03-07-2024 Refill Giovani Hagen MD Work Phone: [facility] Comment on above: Obesity (BMI 35.0-39.9 without comorbidi ty) Start: 03-06-2024 End: 03-07-2024 ambulatory ARUN HERNADEZ Not Available Comment on above: Cervical radiculopathy (Primary Dx) Anxiety; Bipolar disorder, in partial remission, most recent episode manic (CMS/HCC) Start: 02-29-2024 End: 02-29-2024 ambulatory Kenya Bainbley SHAKE BACKBOARD NOTCHER [facility] Comment on above: Cervical radiculopathy (Primary Dx) Start: 02-29-2024 End: 02-29-2024 Bamboo flowsheet Kenya Kelbley SHAKE BACKBOARD NOTCHER [facility] Start: 02-29-2024 End: 02-29-2024 Bamboo flowsheet Kenya Kelbley SHAKE BACKBOARD NOTCHER [facility] Start: 02-27-2024 End: 02-27-2024 ambulatory Kenya Kelbley SHAKE BACKBOARD NOTCHER [facility] Comment on above: Cervical radiculopathy (Primary Dx) Start: 02-27-2024 End: 02-27-2024 Bamboo flowsheet Kenya Kelbley SHAKE BACKBOARD NOTCHER [facility] Start: 02-27-2024 End: 02-27-2024 Bamboo flowsheet Kenya Kelbley SHAKE BACKBOARD NOTCHER [facility] Start: 02-20-2024 End: 02-20-2024 Refill Audrey Perez TEXTILE CHEMIST [facility] Comment on above: Attention deficit hyperactivity disorder (ADHD), predominantly inattentive type (CMS/HCC) Start: 02-14-2024 End: 02-15-2024 ambulatory Arun Hernadez SHAKE BACKBOARD NOTCHER [facility] Comment on above: Cervical radiculopathy (Primary Dx) Start: 02-14-2024 End: 02-14-2024 Bamboo flowsheet Arun Brink SHAKE BACKBOARD NOTCHER [facility] Start: 02-14-2024 End: 02-14-2024 Bamboo flowsheet Arun Brink SHAKE BACKBOARD NOTCHER [facility] Start: 02-12-2024 End: 02-12-2024 ambulatory Jumana Burgess PT Work Phone: [facility] Comment on above: Cervical radiculopathy (Primary Dx) Start: 02-12-2024 End: 02-12-2024 Bamboo flowsheet Jumana Burgess PT Work Phone: [facility] Start: 02-12-2024 End: 02-12-2024 Bamboo flowsheet Jumana Burgess PT Work Phone: [facility] Start: 02-07-2024 End: 02-07-2024 ambulatory Arun Hernadez SHAKE BACKBOARD NOTCHER [facility] Comment on above: Cervical radiculopathy (Primary Dx) Start: 02-07-2024 End: 02-07-2024 Bamboo flowsheet Arun Hernadez SHAKE BACKBOARD NOTCHER [facility] Start: 02-07-2024 End: 02-07-2024 Bamboo flowsheet Arun Hernadez SHAKE BACKBOARD NOTCHER [facility] Start: 02-06-2024 End: 02-06-2024 Office outpatient visit 25 minutes Giovani Hagen MD Work Phone: [facility] Comment on above: Localized edema (Primary Dx); Obesity (BMI 35.0-39.9 without comorbidity); Injury of right ankle, subsequent encounter; Anxiety; Bipolar disorder, in partial remission, most recent episode manic ([facility]) Start: 02-06-2024 End: 02-06-2024 ambulatory GIOVANI HAGEN Not Available Start: 02-05-2024 End: 02-05-2024 Bamboo [...] PT Initial Eval (Tried to contact to [facility] PT Eval for cervical radiculopathy; but had to lm requesting call back.); Call Back (She contacted and we scheduled PT Eval 02/04 w/ Jumana Burgess, PT.) Start: 01-22-2024 End: 01-22-2024 ambulatory DARWIN SANCHEZO Not Available Start: 01-09-2024 End: 01-09-2024 ambulatory RUGEN M HIEU Not Available Start: 12-28-2023 End: 12-28-2023 Patient encounter procedure BHAVESH FLORESRY [facility] Start: 12-28-2023 End: 12-29-2023 ambulatory BHAVESH FLORESRY Facility:[facility] Comment on above: Zio Start: 12-26-2023 End: 12-26-2023 ambulatory RUGEN M HIEU Not Available Start: 12-19-2023 End: 12-21-2023 Orders Only Solo Mora MD Work Phone: Cardiology Comment on above: Syncope and collapse (Primary Dx) Event (ZIO PATCH) Syncope, unspecified syncope type (Primary Dx) Start: 12-18-2023 End: 02-01-2024 Telephone encounter Radha Adkins RTRajesh Kendrick [facility] Comment on above: Lab results Start: 12-04-2023 End: 12-04-2023 ambulatory RUGEN M HIEU Not Available Start: 12-04-2023 Patient encounter status Jumana Burgess PT Work Phone: [facility] Start: 11-02-2023 Orders Only Solo Mora MD [...] Available Start: 04-06-2023 End: 04-06-2023 ambulatory AKUA R ANA LAURA Not Available Start: 03-22-2023 End: 03-24-2023 Evaluation and management of inpatient MARY Culver [facility] Start: 03-20-2023 ambulatory Carol Winn [...] Start: 10-26-2022 End: 10-26-2022 ambulatory Imad Asaad Facility:[facility] Start: 10-26-2022 End: 10-26-2022 ambulatory MD Giovani Hagen Work Phone: [facility] Work Phone: Start: 10-26-2022 End: 10-26-2022 Patient encounter procedure MD Giovani Hagen Work Phone: [facility]-Ul[facility] [place] Work Phone: Start: 10-18-2022 ambulatory Maria Dolores Corey DO Work Phone: Gastroenterology Start: 10-18-2022 Telephone encounter Maria Dolores Corey DO Work Phone: Gastroenterology Comment on above: Medication Preauthorization (M[employer]) Results Start: 10-17-2022 End: 10-18-2022 ambulatory MARIA DOLORES COREY Facility:[facility] Start: 10-17-2022 End: 10-17-2022 Patient encounter procedure [facility] Work Phone: Gastroenterology Comment on above: Gastroparesis (Primary Dx) Start: 09-12-2022 ambulatory CAROL WINN Facility:[facility] Start: 09-12-2022 End: 09-12-2022 Subsequent hospital visit by physician [facility] Work Phone: [facility] Radiology Molecular Comment on above: Nausea [R11.0] Start: 08-31-2022 End: 08-31-2022 Subsequent hospital visit by physician Carol Winn MD Work Phone: Ambulatory Surgery Comment on above: PUD (peptic ulcer disease) [K27.9] Start: 08-24-2022 Telephone encounter Nurse [facility] Work Phone: Gastroenterology Comment on above: Appointment Start: 07-08-2022 End: 07-08-[address] MADHURI MISHRA . Facility:[facility] Start: 07-06-2022 End: 07-07-[address] MADHURI MISHRA . Facility:[facility] Start: 07-05-2022 End: 07-05-2022 Patient encounter procedure Madhuri MISHRA [facility] Start: 07-04-2022 Orders Only Carol Winn MD Work Phone: Gastroenterology Start: 06-30-2022 End: 06-30-2022 Subsequent hospital visit by physician Carol Winn MD Work Phone: Ambulatory Surgery Comment on above: Bilious vomiting with nausea [R11.14] Start: 06-29-2022 End: 06-30-[address] MADHURI MISHRA . Facility:[facility] Start: 06-29-2022 End: 06-29-2022 Lab Drop off Madhuri MISHRA [facility] Start: 06-23-2022 ambulatory Carol Winn MD Work Phone: Gastroenterology Comment on above: EGD instructions Start: 06-23-2022 E-mail encounter from caregiver Carol Winn MD Work Phone: [facility] Start: 06-16-2022 ambulatory [facility] Provider Gastroenterology Comment on above: Question regarding US ABD RT UPPER QUADR ANT Start: 06-15-2022 ambulatory DONGA ERIKAL [facility] Start: 06-15-2022 End: 06-15-2022 Subsequent hospital visit by physician [facility] Work Phone: [facility] Radiology Ultrasound Comment on above: Liver lesion [K76.9] Start: 06-14-2022 Orders Only Carol Winn MD Work Phone: Ambulatory Surgery Comment on above: Liver lesion (Primary Dx) Results Start: 06-10-2022 ambulatory Diamond Pycraft RT(R) Radiology Ct Scan Comment on above: Radiology CT Start: 06-10-2022 Patient encounter procedure Diamond Pycraft RT(R) [facility] Start: 06-10-2022 End: 06-10-2022 Subsequent hospital visit by physician Ct Prep [facility]c Radiology Ct Scan Comment on above: Bilious vomiting with nausea [R11.14] Start: 05-27-2022 ambulatory DONGA TATUM Facility[facility] Start: 05-27-2022 End: 05-27-2022 Subsequent hospital visit by physician [facility] Work Phone: [facility] Radiology General Comment on above: SOB (shortness of breath) [R06.02] Start: 05-27-2022 End: 05-27-2022 Patient encounter procedure Carol Winn MD Work Phone: Gastroenterology Comment on above: Fatty liver (Primary Dx); Bilious vomiting with nausea; Right sided abdominal pain; Nausea; History of diverticulitis; SOB (shortness of breath) Start: 05-13-2022 End: 05-13-2022 ambulatory Imad Asaad Facility:[facility] Start: 05-13-2022 End: 05-13-2022 ambulatory MD Giovani Hagen Work Phone: [facility] Work Phone: Start: 05-13-2022 End: 05-13-2022 Patient encounter procedure MD Giovani Hagen Work Phone: [facility] Work Phone: Start: 05-03-2022 End: 05-04-2022 ambulatory IMAD ASAAD [facility] [employer] Other Start: 05-03-2022 Office consultation new/estab patient 60 min Imad Asaad [facility] Start: 04-20-2022 End: 04-20-[address] AURORA IRBY . Facility:[facility] Start: 04-06-2022 End: 04-07-[address] GIOVANI HAGEN Facility:[facility] Start: 12-21-2021 End: 12-22-[address] AURORA IRBY . Facility:[facility] Start: 12-10-2021 End: 12-10-2021 Subsequent hospital visit by physician [facility] Ultrasound Comment on above: Elevated LFTs [R79.89] Start: 10-27-2021 End: 10-28-[address] AURORA IRBY . Facility:[facility] Start: 10-20-2021 End: 10-20-2021 ambulatory AYLEEN MCWILLIAMS . Facility:[facility] Start: 10-19-2021 End: 10-19-[address] AURORA IRBY . Facility:[facility] Start: 09-06-2021 End: 09-07-[address] GIOVANI HAGEN Facility:[facility] Start: 08-27-2021 End: 08-28-[address] GIOVANI HAGEN Facility:[facility] Start: 08-14-2021 End: 08-15-[address] GIOVANI HAGEN Facility:[facility] Start: 11-06-2018 End: 11-09-2018 Patient encounter procedure [facility] Procedures Date Procedure Procedure Detail Performing Clinician [...] 06-30-2022 Level iv surg pathology gross&microscopic exam Carlo Winn MD Work Phone: Start: 06-30-2022 Esophagogastroduodenoscopy [...] right 50% relief to present section Madhuri TRUMAN SERRANO Cholecystectomy BHAVESH LEO Hysterectomy Madhuri MISHRA Plan of Treatment Date Care Activity Detail Author Start: 12-23-2024 Influenza vaccination Influenza Vaccine (#1) [facility] Comment on above: Postponed from 12/24/2023 (Other Medical Reasons) Start: 03-27-2024 End: 03-27-2024 ambulatory 03/27/2024 4:00 PM EST Treatment [facility] [address] [facility] [address] [place] [id number] Jumana Burgess, PT [address] [place] [address] [place] [address] [facility] Start: 03-25-2024 End: 03-25-2024 ambulatory 03/25/2024 4:00 PM EST Treatment [facility] [address] [facility] [address] [place] [address] Arun Hernadez, SHAKE BACKBOARD NOTCHER [facility] Start: 03-20-2024 End: 03-20-2024 Patient encounter procedure 03/20/2024 4:00 PM EST Office Visit [facility] [address] [place] [id number] Darwin Starr, DO [address] [facility] [place] [address] [facility] Start: 03-19-2024 End: 03-19-2024 ambulatory 03/19/2024 4:00 PM EST Treatment [facility] [address] [facility] [address] [place] [address] Kenya Sanchez, SHAKE BACKBOARD NOTCHER [facility] Start: 03-13-2024 End: 03-13-2024 ambulatory 03/13/2024 4:30 PM EST Treatment [facility] [address] [place] [address] [place] [address] Jumana Burgess, PT [address] [facility] [address] [place] [address] [facility] Start: 03-11-2024 End: 03-11-2024 ambulatory [facility] Comment on above: Arrived Start: 03-06-2024 End: 03-06-2024 ambulatory [facility] Start: 03-04-2024 End: 03-04-2024 ambulatory 03/04/2024 9:00 AM EST Treatment [facility] [address] [facility] [address] [place] [address] Arun Hernadez, CINDY [facility] Start: 02-29-2024 End: 02-29-2024 ambulatory [facility] Comment on above: Arrived Start: 02-27-2024 End: 02-27-2024 ambulatory [facility] Comment on above: Arrived Start: 02-21-2024 End: 02-21-2024 ambulatory 02/21/2024 4:30 PM EDT Treatment [facility] [address] [facility] [address] [place] [address] Kenya Sanchez PTA [facility] Start: 02-14-2024 End: 02-14-2024 ambulatory [facility] Start: 02-13-2024 End: 02-13-2024 Patient encounter procedure Cardiology Comment on above: Dx: Syncope, unspecified syncope type [R 55] Start: 02-13-2024 End: 02-13-2024 ambulatory 02/13/2024 2:00 PM EDT Results Only Cardiology [address] [place] [address] Dx: Syncope, unspecified syncope type [R55] Cardiology Comment on above: Dx: Syncope, unspecified syncope type [R 55] Start: 02-12-2024 End: 02-12-2024 ambulatory [facility] Comment on above: Arrived Start: 02-07-2024 End: 02-07-2024 ambulatory [facility] Comment on above: Arrived Start: 02-05-2024 End: 02-05-2024 ambulatory [facility] Comment on above: Cervical radiculopathy Start: 12-24-2023 Covid-19 Vaccine () Covid-19 Vaccine () [facility] Start: 12-24-2023 Covid-19 Vaccine () Covid-19 Vaccine () [facility] Start: 12-24-2023 Influenza [facility] Start: 12-19-2023 End: 12-19-2023 ambulatory 12/19/2023 2:15 PM EDT Results Only Cardiology [address] [place] [address] Exertional Syncope. Referring: Dr. Shilo Dillon Cardiology Comment on above: Exertional Syncope. Referring: Dr. Shilo Dillon Start: 12-19-2023 End: 12-19-2023 Patient encounter procedure Cardiology Comment on above: Exertional Syncope. Referring: Dr. Shilo Dillon Start: 04-24-2023 Behavioral Health Screening Behavioral Health Screening [facility] Start: 12-23-2022 Covid-19 Vaccine () Covid-19 Vaccine () [facility] Start: 12-23-2022 Influenza vaccination [facility] Start: 05-13-2022 [facility] Start: 04-24-2022 DEPRESSION ASSESSMENT DEPRESSION ASSESSMENT [facility] Start: 12-28-2021 COVID-19 VACCINE (4 - Booster for Pfizer series) COVID-19 VACCINE (4 - Booster for Pfizer series) [facility] Start: 12-28-2021 COVID-19 VACCINE (4 - Pfizer series) COVID-19 VACCINE (4 - Pfizer series) [facility] Start: 12-23-2021 Influenza vaccination INFLUENZA (#1) [facility] Start: 02-06-2020 Urine microalbumin profile DTaP,Tdap,Td Vaccine (6 - Td or Tdap) [facility] Start: 2018 HPV TESTING HPV TESTING [facility] Start: 2009 PAP TESTING PAP TESTING [facility] Start: 2009 Screening for malignant neoplasm of cervix Cervical Cancer Screening [facility] Start: 09-29-2007 Urine microalbumin profile DTAP,TDAP,TD (1 - Tdap) [facility] Start: 11-30-2006 HPV Vaccine (2 - 3-dose series) HPV Vaccine (2 - 3-dose series) [facility] Start: 2006 Anxiety Screening Anxiety Screening [facility] Start: 2006 Depression Screening Depression Screening [facility] Start: 2006 HEPATITIS C SCREENING HEPATITIS C SCREENING [facility] Start: 2006 Hepatitis C screening Hepatitis C Screening [facility] Start: 2006 HIV SCREENING HIV SCREENING [facility] Start: 2006 HIV screening HIV Screening [facility] Start: 1988 HEPATITIS B (1 of 3 - 3-dose series) HEPATITIS B (1 of 3 - 3-dose series) [facility] Actin smooth muscle IgG Ab [Units/volume] in Serum [facility] Alpha 1 antitrypsin [Mass/volume] in Serum or Plasma [facility] Alpha 1 antitrypsin phenotyping [Identifier] in Serum or Plasma by Immunofixation [facility] Ceruloplasmin [Mass/ volume] in Serum or Plasma [facility] End: 06-26-2023 Ct abdomen & pelvis w/o contrast material CT ABD/PEL WO [facility] Radiology Routine Bilious vomiting with nausea Right sided abdominal pain Nausea 1 Occurrences starting 05/27/2022 until 06/26/2023 [facility] Work Phone: Comment on above: 1 Occurrences starting 05/27/2022 until 06/26/2023 End: 11-01-2024 ECG COMPLETE ECG COMPLETE ECG Routine Gastroparesis 1 Occurrences starting 11/02/2023 until 11/01/2024 [facility] Work Phone: Comment on above: 1 Occurrences starting 11/02/2023 until 11/01/2024 End: 12-18-2024 ECG COMPLETE ECG COMPLETE ECG Routine Syncope and collapse 1 Occurrences starting 12/19/2023 until 12/18/2024 [facility] Work Phone: Comment on above: 1 Occurrences starting 12/19/2023 until 12/18/2024 End: 05-27-2023 EGD DIAGNOSTIC EGD DIAGNOSTIC Endoscopy Routine Bilious vomiting with nausea Right sided abdominal pain 1 Occurrences starting 05/27/2022 until 05/27/2023 [facility] Work Phone: Comment on above: 1 Occurrences starting 05/27/2022 until 05/27/2023 Electrogastrography dx transcutaneous EGG (ELECTROGASTROGRAPHY) Procedures Routine Gastroparesis Ordered: 09/14/2022 [facility] Work Phone: Comment on above: Ordered: 09/14/2022 Hepatitis A virus Ab [Presence] in Serum by Immunoassay [facility] HFE gene mutations f ound [Identifier] in Blood or Tissue by Molecular genetics method [facility] Homogenous nuclear A b pattern [Titer] in Serum [facility] IgG [Mass/volume] in Serum or Plasma [facility] Lipoprotein a [Moles /volume] in Serum or Plasma [facility] Mitochondria M2 IgG Ab [Units/volume] in Serum [facility] Nuclear Ab [Titer] in Serum [facility] OUTSIDE VENDOR CARDI AC OUTPATIENT EXTENDED RHYTHM RECORDING (WITHOUT TELEMETRY) OUTSIDE VENDOR CARDIAC OUTPATIENT EXTENDED RHYTHM RECORDING (WITHOUT TELEMETRY) Holter Routine Syncope, unspecified syncope type Ordered: 12/19/2023 [facility] Comment on above: Ordered: 12/19/2023 End: 12-18-2024 STRESS ECHO TREADMILL STRESS ECHO TREADMILL Cardiology Routine Syncope, unspecified syncope type 1 Occurrences starting 12/19/2023 until 12/18/2024 [facility] Work Phone: Comment on above: 1 Occurrences starting 12/19/2023 until 12/18/2024 End: 07-14-2023 Us abdominal real time w/image limited US ABD RT UPPER QUADRANT Radiology Routine Liver lesion 1 Occurrences starting 06/14/2022 until 07/14/2023 [facility] Work Phone: Comment on above: 1 Occurrences starting 06/14/2022 until 07/14/2023 [facility] Immunizations Immunization Date Immunization Notes Care Provider Bernadette vickers 11-02-2021 SARS-CoV-2 mRNA (kokamepctap-hjde-cwlct se) vaccine Madhuri MISHRA [facility] 04-29-2021 SARS-CoV-2 (COVID-19 ) mRNA BNT-162b2 vax Madhuri MISHRA [facility] 03-03-2021 SARS-CoV-2 (COVID-19 ) mRNA BNT-162b2 vax Madhuri MISHRA [facility] Comment on above: Result Comment: 2022: TPVAL 02-09-2021 influenza virus vaccine, unspecified formulation Madhuri MISHRA [facility] 02-09-2021 influenza, injectabl e, quadrivalent, preservative free Jumana Blackston PT Work Phone: [facility] 03-16-2020 influenza virus vaccine, unspecified formulation compropago [facility] 03-16-2020 Influenza, injectabl e, Madin Jenn Canine Kidney, preservative free, quadrivalent Jumana Blackston PT Work Phone: [facility] 01-08-2018 influenza virus vaccine, unspecified formulation compropago [facility] 01-08-2018 influenza, injectabl e, quadrivalent, contains preservative Jumana Blackston PT Work Phone: [facility] 01-08-2018 influenza, injectabl e, quadrivalent, preservative free Jumana Blackston PT Work Phone: [facility] 02-01-2017 influenza virus vaccine, unspecified formulation compropago [facility] 02-01-2017 Influenza, injectabl e, Madin Jenn Canine Kidney, preservative free, quadrivalent Jumana Burgess PT Work Phone: [facility] 03-25-2016 influenza virus vaccine, unspecified formulation Madhuri MISHRA [facility] 03-25-2016 influenza, injectabl e, quadrivalent, preservative free Jumana Burgess PT Work Phone: [facility] 02-05-2010 tetanus toxoid, redu rolanda diphtheria toxoid, and acellular pertussis vaccine, adsorbed Madhuri Basketball [place] [facility] 01-05-2007 hepatitis B vaccine, pediatric or pediatric/adolescent dosage Madhuri Basketball [place] [facility] 11-02-2006 hepatitis B vaccine, pediatric or pediatric/adolescent dosage Madhuri Basketball [place] [facility] 11-02-2006 HPV, unspecified formulation Madhuri Basketball [place] [facility] 11-02-2006 human papilloma viru s vaccine, quadrivalent Jumana Burgess PT Work Phone: [facility] 11-02-2006 meningococcal ACWY vaccine, unspecified formulation Madhuri Basketball [place] [facility] 11-02-2006 meningococcal polysaccharide (groups A, C, Y and W-135) diphtheria toxoid conjugate vaccine (MCV4P) Jumana Burgess PT Work Phone: [facility] 02-20-1998 hepatitis B vaccine, pediatric or pediatric/adolescent dosage Madhuri Basketball [place] [facility] 12-28-1993 diphtheria, tetanus toxoids and pertussis vaccine Jumana Burgess PT Work Phone: [facility] 12-07-1992 diphtheria, tetanus toxoids and pertussis vaccine Jumana Burgess PT Work Phone: [facility] 12-07-1992 measles, mumps and rubella virus vaccine Madhuri MISHRA [facility] 12-07-1992 trivalent poliovirus vaccine, live, oral Jumana Valentinton PT Work Phone: [facility] 06-09-1992 diphtheria, tetanus toxoids and pertussis vaccine Jumana Burgess PT Work Phone: [facility] 06-09-1992 measles, mumps and rubella virus vaccine Madhuricecille MISHRA [facility] 06-09-1992 trivalent poliovirus vaccine, live, oral Jumanaben Burgess PT Work Phone: [facility] 10-31-1990 varicella virus vaccine Patr homer MISHRA [facility] 06-20-1990 diphtheria, tetanus toxoids and pertussis vaccine Jumana Burgess PT Work Phone: [facility] 05-21-1990 trivalent poliovirus vaccine, live, oral Jumana Valentinton PT Work Phone: [facility] 01-10-1989 trivalent poliovirus vaccine, live, oral Jumana Barbieton PT Work Phone: [facility] NEGATED: Highlighted row has not occurred!05-01-2019 influenza virus vaccine, live, attenuated, for intranasal use Madhuricecille MISHRA [facility] NEGATED: Highlighted row has not occurred!04-03-2019 influenza virus vaccine, live, attenuated, for intranasal use Madhuricecille MISHRA [facility] Payers Date Payer Category Payer Private Health Insurance [employer] [id number] 2022 Self-pay [id number] 2020 Unknown [id number] 1988 Unknown [id number] [id number]. 182 1988 Unknown [id number] 2.16.840.1.830524.3.579.2. 593 1988 Unknown [id number] 2.16.840.1.019079.3.579.2. 593 1988 Unknown [id number] 2.16.840.1.127010.3.579.2. 593 1988 Unknown [id number] 2.16.840.1.859134.3.579.2. 593 1988 Unknown [id number] 2.16.840.1.746968.3.579.2. 593 1988 Unknown [id number] 2.16.840.1.519693.3.579.2. 593 1988 Unknown [id number] 2.16.840.1.871916.3.579.2. 593 1988 Unknown [id number] 2.16.840.1.113652.3.579.2. 593 1988 Unknown [id number] 2.16.840.1.069546.3.579.2. 593 1988 Unknown [id number] 2.16.840.1.292654.3.579.2. 593 1988 Unknown [id number] 2.16.840.1.966949.3.579.2. 593 1988 Unknown [id number] 2.16.840.1.202139.3.579.2. 593 1988 Unknown [id number] 2.16.840.1.466476.3.579.2. 593 1988 Unknown [id number] 2.16.840.1.614223.3.579.2. 177 1988 Unknown [id number] 2.16840.1.726706.3.579.2. 727 1988 Unknown [id number] 2.16840.1.547058.3.579.2. 727 1988 Unknown [id number] 2.16840.1.199372.3.579.2. 1259 1988 Unknown [id number] 2.16840.1.970065.3.579.2. 1259 1988 Unknown [id number] 2.16840.1.992549.3.579.2. 1259 1988 Unknown [id number] 2.16840.1.877078.3.579.2. 1259 1988 Unknown [id number] 2.16840.1.433805.3.579.2. 1259 1988 Unknown [id number] 2.16.840.1.546969.3.579.2. 1259 1988 Unknown [id number] 2.16.840.1.445723.3.579.2. 1259 1988 Unknown [id number] 2.16.840.1.052042.3.579.2. 1259 1988 Unknown [id number] 2.16.840.1.883935.3.579.2. 9 1988 Unknown [id number] 2.16.840.1.077881.3.579.2. 9 1988 Unknown [id number] 2.16.840.1.556762.3.579.2. 9 1988 Unknown [id number] 2.16.840.1.454766.3.579.2. 1258 1988 Unknown [id number] 2.16.840.1.413002.3.579.2. 1258 1988 Unknown [id number] 2.16.840.1.877741.3.579.2. 1258 1988 Unknown [id number] 2.16.840.1.455893.3.579.2. 9 1988 Unknown [id number] 2.16.840.1.532511.3.579.2. 1258 1988 Unknown [id number] 2.16.840.1.738134.3.579.2. 1258 1988 Unknown [id number] 2.16.840.1.971065.3.579.2. 9 1959 Unknown [id number] Unknown 100 [facility] [id number] Unknown [id number] 2.16.840.1.919529.3.579.2. 531 Unknown [id number] 2.16.840.1.587860.3.579.2. 531 Social History Date Type Detail Facility Tobacco smoking stat us MOIS Unknown if ever smoked [facility] Work Phone: Start: 1990 Sex Assigned At Female [facility] Start: 03-28-2019 End: 05-27-2022 Tobacco smoking status MOIS Never smoked tobacco [facility] Start: 05-27-2022 End: 05-01-2023 Tobacco use and exposure Smokeless tobacco non-user [facility] Start: 05-27-2022 End: 02-06-2024 Alcohol intake Current drinker of alcohol (finding) [facility] Start: 03-28-2019 Alcohol Comment socially [facility] Start: 1990 Sex Assigned At Not on file [facility] Start: 11-02-2022 End: 04-18-2023 Sex Assigned At [facility] Start: 06-29-2022 End: 05-01-2023 Tobacco smoking status Ex-smoker (finding) [facility] Tobacco smoking status Never [facility] Start: 11-02-2022 End: 04-18-2023 History of Social function [facility] Start: 06-08-2021 Gender identity Identifies as female gender (finding) [facility] Start: 11-16-2021 End: 11-26-2021 Exposure to SARS-CoV-2 (event) Not sure [facility] History of tobacco use Current smoker [facility] Within the last year , have you been afraid of your partner or ex-partner? No [facility] Do you belong to any clubs or organizations such as religious groups, unions, fraternal or athletic groups, or [...] 12-28-2023 Functional Status N/A [facility] 06-30-2022 Functional Status N/A [facility] Clinical Notes 05-03-2022 to 03-07-2024 Telephone Encounter - VINH Roque - 03/07/2024 11:20 AM ESTTelephone Encounter - VINH Roque - 03/07/2024 11:20 AM ESTTelephone Encounter - VINH Roque - 03/07/2024 9:14 AM EST Note Date & Type Note Facility 03-07-2024 Telephone encounter Note [facility] reviewed, Rx sent into patient's pharmacy. [facility] 03-07-2024 Miscellaneous Notes [facility] reviewed, Rx sent into patient's pharmacy. documented in this encounter [facility] 03-07-2024 Telephone encounter Note [facility] reviewed, Rx sent into patient's pharmacy. [facility] 03-07-2024 Miscellaneous Notes [facility] reviewed, Rx sent into patient's pharmacy. ALPRAZolam (Xanax) 0.5 MG tablet [facility] documented in this encounter [facility] 03-06-2024 History of Present illness Narrative Physical Therapy Treatment Visit Patient Name: Belgica Harper Today's Date: 03/06/2024 Encounter Diagnoses Name Primary? Cervical radiculopathy Yes Visit number: 7 Timed Code Treatment: 38 minutes Total Treatment Time: 40 minutes Time In: 1630 Time Out: 1710 History: Pt. Presents to PT with c/c of left cervical radiculopathy which started 6-7 months ago. Insidious onset. X-ray: normal, No MRI has to do PT first. Reports pain/symptoms comes and goes throughout the day with no triggers of pain. Pain will start in neck and refer down left UE. Precautions: as tolerated Subjective Pt reports spasms are back due to being on the PC for 24 hrs. She also has a time restrain and requested for manuals and modalities this session. Prior to this she was progressing well with no issues. This seems to be a flair up. Pain: 06/03 neck, ankle 07/01 Objective: PT Evaluation (02/05/24) Cervical ROM: normal ROM in all planes Joint: left hypomobility at C4/5/6 Palpation: increase left cervical paraspinal muscle tightness/spasm Flexibility: moderate left upper trapezius and cervical paraspinal Strength: scapular 4-/5 Treatment: Manual Therapy: (23 minutes); Delivered manual ther to thoracic spine/ paraspinal MFR/STM, UT/subscapularis stretching, PA and rotational grade II joint mobs. Therapeutic Exercise: (Held) Instructed Pt through exercises to improve postural awareness, scapular and continued with cervical strengthening and tissue relaxation/ mobility methods per exercises in grid Therapeutic Activity: Exercises to improve dynamic activities, functional tasks, functional mobility to return to prior activity level Neuromuscular re-education: ( PRN) Balance Training, Muscle Facilitation, Dynamic Stability, Core Stabilization, and Blood Flow Restriction Training (BFRT) Modalities: (15 minutes) prone: IFC with ice to cervical spine/upper thoracic region. Assessment: Pt. Has participated in 6 PT session with start of POC on 02/05/24 for cervical pain with radiculopathy. States 70% improvement overall with decreased episodes of radicular pain. Continues to demos tightness along left upper trap/thoracic claritza addressed with manual ther. Spasms were reported as reduced. Outcome Measure: 16% Short Term Goal: To be met in 2 weeks Goal 1: Pt to be instructed in home exercise program. Radio Intelligence Operator Goals: To be met in 10 weeks Goal 1: Pt to report independence and compliance with home program. MET Goal 2: Pt. Will report of 0/10 [...] POC medically necessary. Please sign below. Date: Cosigned by Jumana Burgess, PT at 03/07/2024 2:57 PM EST documented in this encounter [facility] 03-06-2024 Telephone encounter Note ALPRAZolam (Xanax) 0.5 MG tablet [facility] 02-12-2024 History of Present illness Narrative Physical [...] to be instructed in home exercise program. Detention Goals: To be met in 10 weeks [...] sign below. Date: documented in this encounter [facility] 02-06-2024 History of Present illness Narrative Associated [...] DAY IN THE MORNING 30 tablet 2 Fpxqfvjjmmp-Yvnzwlxmn-Rynhvu 100-62.5-25 MCG/ACT aerosol powder INHALE 1 PUFF [...] Procedure Laterality Date SECTION, LOW TRANSVERSE 2012,2013, 2016 CHOLECYSTECTOMY 03/23/2023 Laporoscopic COLONOSCOPY 05/11/2018 Dr. Padgett COLONOSCOPY 05/28/[address] [facility] [address] Winn CT ANGIOGRAM CHEST 07/30/2018 CT ANGIOGRAM CHEST [facility] DATA [facility]GAC[facility] EGD 06/30/2022 Normal hypopharynx, normal [...] follow-ups on file. documented in this encounter [facility] 01-29-2024 Telephone encounter Note 25 visits out to 10/21/24 [facility] 01-29-2024 Miscellaneous Notes 25 visits out to 10/21/24 documented in this encounter [facility] 12-28-2023 Hospital Discharge instructions Patient Education 12/28/2023 15:59:41 Kidney Stones, Vxuh-dp-Vbmv Kidney Stones Kidney stones are rock-like masses [...] Follow these instructions at home: Medicines Take hjho-ynk-asjfuve and prescription medicines only as told by [...] provider. Document Revised: 12/02/2022 Document Reviewed: 12/02/2022 [employer] Patient Education 2023 [employer] Follow Up Care 11/07/2022 15:52:12 With:OLEG OSEI, BHAVESH Patterson, URL Address: When:1 year [facility] 12-28-2023 Note Patient Education Urology Kidney Stones [...] these instructions at home: Medicines ? Take nmln-hlr-focsoej and prescription medicines only as told by [...] provider. Document Revised: 12/02/2022 Document Reviewed: 12/02/2022 Elsevier Patient Education ? 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 [facility] 12-19-2023 Note Education (CARDMN) ---- BELGICA HARPER ([id number]) 1990 F Date Time Provider Department 12/19/23 [...] Date Reviewed: 12/19/2023 Reviewed by: Analia Umanzor, JW - Fully Assessed Prescriptions as of 12/19/2023 [...] Encounter Status:Closed by GEGE LEMA on 12/19/23 [facility] 12-19-2023 Note HNO ID: [id number] Author: GEGE LEMA Tech Service: ? Author Type: Technologist Type: Progress Notes Filed: 12/19/2023 15:45 Note Text: EVENT MONITOR DISPOSABLE PATCH INSTRUCTIONS Patient Name: Belgica Harper [facility] Number: [id number] Skin prepped and cleansed with alcohol Patch secured to prepped area Monitor Activated Serial #: [id number] Patient Instructed: Prescribed order timeframe Bathing guidelines Usage of event button and diary documentation Return of monitor at the end of prescribed order Call with problems [phone] or [phone]. [phone] Patient expresses a good understanding of instructions Tristian Pretty [facility] 12-19-2023 History of Present illness Narrative EVENT MONITOR DISPOSABLE PATCH INSTRUCTIONS Patient Name: Belgica Harper [facility] Number: [id number] Skin prepped and cleansed with alcohol Patch secured to prepped area Monitor Activated Serial #: [id number] Patient Instructed: Prescribed order timeframe Bathing guidelines Usage of event button and diary documentation Return of monitor at the end of prescribed order Call with problems [phone] or [phone]. [phone] Patient expresses a good understanding of instructions Tristian Pretty documented in this encounter [facility] 12-19-2023 Instructions Solo Mora MD - 12/19/2023 3:27 PM EDT Next Steps: 1). Please wear a heart monitor for 2 weeks and mail it back 2). Please get a stress echo done and follow up with me afterwards documented in this encounter [facility] 12-19-2023 History of Present illness Narrative Images from the original note were not included. [facility] Department of Cardiovascular Medicine SECTION OF CARDIAC PACING and ELECTROPHYSIOLOGY OUTPATIENT VISIT DATE December 19, 2023 OUTPATIENT VISIT TYPE NEW PRIMARY CARE PHYSICIAN: Giovani Hagen MD [address] [place] [address] CHIEF COMPLAINT: Syncope, cardiac evaluation for family [...] had any workup done including Stress Echo, shelter monitor or 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 Reports symptoms of [...] had any workup done including Stress Echo, shelter monitor or 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 PLAN AND RECOMMENDATIONS: - Exercise stress echo for exertional syncope to rule out structural or arrhythmic cause - 2 week tina Fitzgerald personally interviewed, confirmed and edited the above information as obtained by others. CONTACT INFORMATION: Solo Mora MD documented in this encounter [facility] 12-19-2023 Note HNO ID: [id number] Author: SOLO MORA MD Service: ? Author Type: Physician Type: Progress Notes Filed: 12/28/2023 02:49 Note Text: [facility] Department of Cardiovascular Medicine SECTION OF CARDIAC PACING and ELECTROPHYSIOLOGY OUTPATIENT VISIT DATE December 19, 2023 OUTPATIENT VISIT TYPE NEW PRIMARY CARE PHYSICIAN: Giovani Hagen MD [address] [place] [address] CHIEF COMPLAINT: Syncope, cardiac evaluation for family [...] had any workup done including Stress Echo, shelter monitor or 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 Reports symptoms of [...] for syncopal episod (more content not included)... [facility] 12-19-2023 Note HNO ID: [id number] Author: SOLO MORA MD Service: ? Author [...] correspond to sinus tachycardia Solo Mora MD [facility] 12-18-2023 Telephone encounter Note Patient had labwork performed on 12-13-2023. Dr. Du wanted you to be aware so you could review them. [facility] 12-18-2023 Miscellaneous Notes Patient had labwork performed on 12-13-2023. Dr. Du wanted you to be aware so you could review them. documented in this encounter [facility] 11-02-2023 Telephone encounter Note Images from the original note were not included. Records are in Care Everywhere: EP Referral- 11/01/23 (Dr. Shilo Dillon/Cardiology) Criss Mccrary [facility] 11-02-2023 Miscellaneous Notes Images from the original note were not included. Records are in Care Everywhere: EP Referral- 11/01/23 (Dr. Shilo Dillon/Cardiology) Criss Mccrary documented in this encounter [facility] 03-20-2023 Miscellaneous Notes Patient is a 32-year-old [...] prior to transfer. documented in this encounter [facility] 11-03-2022 Miscellaneous Notes PA for Ibsrela initiated electronically. Awaiting response [facility] ID# [id number] Rx BIN [id number] Rx PCN CLAIMCR Rx Grp STOH documented in this encounter [facility] 11-02-2022 History of Present illness Narrative Behavioral Medicine Digestive Disease and Surgery [facility] Name: Belgica Harper MR#: [id number] Date: 11/02/2022 Time: 1 hour Referred by: [...] She was given the website for the [facility] Behavioral Medicine Program and shown the relaxation recordings with the recommendation to practice this and the rationale behind their use. Follow-up with Dr. Conteh was discussed as well as encouraging her to continue her PTSD work with a local trauma therapist. Soraida Zhang, Ph.D. documented in this encounter [facility] 11-02-2022 History of Present illness Narrative Assessment ASSESSMENT 32 year old female with medical refractory gastroparesis. PLAN I discussed surgical therapy for gastroparesis in detail. Belgica Harper is candidate for further medical treatment. Needs to stop Wegovy May consider for wireless motility capsule study Constipation medication change per Dr. 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 Maria Dolores Corey DO P Sp Ddsi Clinical Pool Please ask her to see BOOK REVIEWER to r/o endometriosis there was a very slight abnormal wave (not strong) suggesting its possible Called and spoke with the patient and relayed providers message. documented in this encounter [facility] 10-18-2022 Miscellaneous Notes PA initiated via [employer]. Await response. Covered: Retail, Mail Order Unknown: Specialty, Long-Term Care Group ID: [id number] Group name: BIN: [id number] PCN: CLAIMCR documented in this encounter [facility] 10-18-2022 History of Present illness Narrative Images from the original note were not included. documented in this encounter [facility] 10-17-2022 Nurse Note EGG completed. Able to drink the 500 ml of water without any difficulty. documented in this encounter [facility] 09-12-2022 Note HNO ID: [id number] Author: Shivani Vasquez RT(R) Service: Nuclear Medicine Author Type: Product Introduction Manager Type: Progress Notes Filed: 09/12/2022 2:46 [...] 12, 2022 TIME: 2:45 PM PAGER/CONTACT #: [facility] 09-12-2022 History of Present illness [...] safety can be found using this link: [email or web address]% [email or web address] SIGNATURE: RT Amber(R) PATIENT NAME: Belgica Harper DATE: September 12, 2022 TIME: 2:45 PM PAGER/CONTACT #: documented in this encounter [facility] 08-31-2022 Nurse Note POST OP LEARNING RESPONSE INSTRUCTION PROVIDED TO: Patient and family member METHOD OF INSTRUCTION: Written instruction - handouts Verbal instruction PATIENT / FAMILY RESPONSE: Information received as demonstrated by interest and questions FOLLOW-UP PLAN: Patient instructed to call with any further issues SUPPLEMENTAL MATERIAL: None REFERRAL (RECOMMENDATION): None Electronically Signed By: Wilma Limon RN In Department: AMBULATORY SURGERY [facility] 08-31-2022 Nurse Note POST OP LEARNING RESPONSE [...] Department: AMBULATORY SURGERY documented in this encounter [facility] 08-31-2022 History and physical note SEDATION HISTORY [...] DATE: August 31, 2022 TIME: 2:51 PM [facility] 08-31-2022 History and physical note SEDATION HISTORY [...] TIME: 2:51 PM documented in this encounter [facility] 08-31-2022 Nurse Note PRE OP LEARNING ASSESSMENT PROCEDURE/SURGERY: GI PROCEDURES: EGD READINESS TO LEARN COGNITIVE ABILITY: Alert and oriented MOTIVATION TO LEARN: Interested FAMILY SUPPORT: Unable to assess - Family not present PATIENT LEARNS BEST BY: Written Instruction - Hand-outs Verbal Instruction FACTORS AFFECTING LEARNING: None PHYSICAL LIMITATIONS AFFECTING LEARNING: None Electronically Signed By: Ayleen Aj RN In Department: AMBULATORY SURGERY [facility] 08-24-2022 Miscellaneous Notes Lm to confirm procedure for 08-31-22 documented in this encounter [facility] 07-05-2022 Hospital Discharge instructions Patient Education 07/05/2022 [...] With:Madhuri MISHRA Address: [facility] [address] [place] [address]- Business (1) When:11/04/2022 08:39:10 Comments:With a stone metabolic work-up [facility] 06-30-2022 Nurse Note Pt denies any nausea at this time. Pt given 3 oz of apple juice per request and tolerating at this time. Pt denies any other s/s at this time, smiling in conversation, 500ml of Nacl completed as well. Pt reports she feels ready to go home. [facility] 06-30-2022 Nurse Note Pt denies any nausea [...] to c/o of nausea and dry heaving. updated and compazine suppository ordered, however pt reported not wanting. updated and verbal order to give another [...] Department: AMBULATORY SURGERY documented in this encounter [facility] 06-30-2022 Nurse Note Pt c/o nausea and started dry heaving at 1205, 4 mg iv zofran given at 1209. Pt vomiting liquid bile. Pt reported nausea improving, resting, and and wide open fluids continuing. Pt again started to c/o of nausea and dry heaving. updated and compazine suppository ordered, however pt reported not wanting. updated and verbal order to give another 4 mg of iv zofran received and given. Pt having egd for nausea and vomiting, in which she vomited even this morning before she came. Pt resting in bed at this time. [facility] 06-30-2022 Nurse Note POST OP LEARNING RESPONSE [...] By: Wilma Limon In Department: AMBULATORY SURGERY [facility] 06-30-2022 History and physical note SEDATION HISTORY [...] DATE: June 30, 2022 TIME: 11:35 AM [facility] 06-30-2022 History and physical note SEDATION HISTORY [...] TIME: 11:35 AM documented in this encounter [facility] 06-30-2022 Nurse Note PRE OP LEARNING ASSESSMENT PROCEDURE/SURGERY: GI PROCEDURES: EGD READINESS TO LEARN COGNITIVE ABILITY: Alert and oriented MOTIVATION TO LEARN: Interested FAMILY SUPPORT: High - Very involved in pt care PATIENT LEARNS BEST BY: Individual Instruction Written Instruction - Hand-outs Verbal Instruction FACTORS AFFECTING LEARNING: None PHYSICAL LIMITATIONS AFFECTING LEARNING: None Electronically Signed By: Elissa Kwok RN In Department: AMBULATORY SURGERY [facility] 06-23-2022 Miscellaneous Notes Confirmed procedure for 06-30-22 documented in this encounter [facility] 06-15-2022 Note HNO ID: [id number] Author: Monet Osei RDMS Service: Abstract Author Type: Motor Rebuilder Type: Progress Notes Filed: 06/15/2022 8:09 PM [...] Osei RDMS June 15, 2022 8:08 PM [facility] 06-15-2022 History of Present illness [...] 2022 8:08 PM documented in this encounter [facility] 06-14-2022 Miscellaneous Notes Images from the original [...] MD 06/14/2022 9:35 AM EST Back to [facility] Milly, I reviewed the ultrasound done in November This hypodensity was felt to be a benign cyst I will order a follow up ultrasound to be done This is reassuring Carol Winn MD 06/14/2022 9:29 AM EST [place] Milly, the CT scan showed Fatty liver [...] needed pending results documented in this encounter [facility] 06-10-2022 History of Present illness Narrative Radiology [...] PERIPHERAL IV DATA: Not applicable SIGNED BY: LISBETH Groves) June 10, 2022 10:01 AM documented in this encounter [facility] 05-27-2022 Note HNO ID: [id number] Author: LISBETH Mace) Service: Radiology Author Type: Technologist Type: Progress [...] PERIPHERAL IV DATA: Not applicable SIGNED BY: LISBETH Mace) May 27, 2022 12:29 PM [facility] 05-27-2022 History of Present illness [...] 2022 12:29 PM documented in this encounter [facility] 05-27-2022 History of Present illness Narrative Chief [...] follow up with Dr. Hylton who is finance assistant We discussed seeing endocrinology to help with [...] follow-ups on file. documented in this encounter [facility] 05-03-2022 Evaluation note Encounter Date Diagnosis Assessment Notes Apr, ENGLISH (nonalcoholic steatohepatiti s) (ICD-10 - K75.81) Apr, Abnormal ultrasound (ICD-10 - R93.89) Apr, Elevated liver enzymes (ICD-10 - R74.8) Apr, Liver cyst (ICD-10 - K76.89) [facility] Other Evaluation + Plan note Future Appointments Appointment Date:06/30/2022 10:00:00 AM Scheduled Provider: Location:[facility] Appointment Type:Urology CALL PAT Appointment Date:07/05/2022 08:15:00 AM Scheduled Provider: Location:[facility] Appointment Type:Urology FT Diagnostic Tests Pending * Urine Culture 06/29/22 [facility] + Plan note Future Appointments Appointment Date:11/07/2022 03:15:00 PM Scheduled Provider:Madhuri MISRHA MD Location[facility] Future App[facility]ments Appointment Date:12/30/2024 03:15:00 PM Scheduled Provider:Madhuri MISHRA MD [facility] Office Visit [facility] evaluation noteNo assessment information available [facility] Work Phone: Evaluation note* Diagnosis Fatty liver- Primary Other chronic nonalcoholic liver disease Bilious vomiting with nausea Right sided abdominal pain Abdominal pain, unspecified site Nausea Nausea alone History of diverticulitis SOB (shortness of breath) Shortness of breath [facility] Diagnosis Liver lesion- Primary Other specified disorders of liver [facility] Diagnosis Gastroparesis- Primary [facility]* Diagnosis Gastroparesis- Primary [facility]* Diagnosis Irritable bowel syndrome with constipation- Primary Irritable bowel syndrome [facility] Diagnosis Gastroparesis [facility] Diagnosis Gastroparesis- Primary [facility]* Diagnosis SOB (shortness of breath) Shortness of breath [facility] Diagnosis Liver lesion Other specified disorders of liver [facility] Diagnosis Elevated LFTs Other abnormal blood chemistry documented in this encounter [facility] note* Diagnosis Bilious vomiting with nausea Right sided abdominal pain Abdominal pain, unspecified site Nausea Nausea alone documented [facility] this encounter [facility] Diagnosis Nausea Nausea alone documented in this encounter [facility]* Diagnosis Gastroparesis- Primary [facility] Diagnosis Syncope and collapse- Primary [facility] in this encounter [facility]* Diagnosis Syncope, unspecified syncope type- Primary documented in this encounter [facility] note* Diagnosis Syncope, unspecified syncope type- Primary documented in this encounter [facility] note* Diagnosis Nausea- Primary Nausea alone PUD (peptic ulcer disease) Peptic ulcer, unspecified site, unspecified as acute or chronic, without mention of hemorrhage, perforation, or obstruction Nausea Nausea alone documented in this encounter [facility] note* Diagnosis PUD (peptic ulcer disease)- [...] perforation, or obstruction documented in this encounter [facility] note* Diagnosis Attention deficit hyperactivity disorder, predominantly [...] partial remission, most recent episode manic (CMS/HCC) Anxiety Anxiety state, unspecified Bipolar disorder, in [...] manic (CMS/HCC) Obesity (BMI 35.0-39.9 without comorbidity) [facility] - Reported* Type Description Date Medical History Anxiety Medical History Depression Medical History Diverticulosis Medical History bipolar Surgical History C section Surgical History hysterectomy Hospitalization History see above Hospitalization History diverticulitis 01/24/18 Hospitalization History NONE ON THE LAST YEAR [facility] Other Hospital course Narrative No data available for this section [facility] No data available for this section [facility] No data available for this section [facility] Outpatient Procedure (Routine) - Authorized Specialty Diagnoses / Procedures Referred By Norma kennedy Referred To Contact [facility] Diagnoses Bilious vomiting with nausea Right sided abdominal pain Procedures EGD DIAGNOSTIC ESOPHAGOGASTRODUODENOSC OPY [place] [address] [place] [address] [facility] [address] [place] [address] Referral ID Status Reason Start Date Expiration Date Visits Requested Visits Authorized [id number] Authorized Auto-Generat ed Referral 05/27/2022 05/27/2023 1 1 * MRI/CT (Routine) - Authorized Specialty Diagnoses / Procedures Referred By Norma kennedy Referred To Contact CT IMAGING Diagnoses Bilious vomiting with nausea Right sided abdominal pain Nausea Procedures CT ABD/PEL WO IVCON CT ABD & PEL[place] [address] [place] [address] Ct Imaging Referral ID Status Reason Start Date Expiration Date Visits Requested Visits Authorized [id number] Authorized Auto-Generat ed Referral 05/27/2022 06/26/2023 1 1 [facility] for referral (narrative)* Diagnostic Procedure Only (Routine) - Authorized Specialty Diagnoses / Procedures Referred By Norma kennedy Referred To Contact [facility] Diagnoses Liver lesion Procedures US ABD RT UPPER QUADRANT US ABDOMINAL REAL [place] W/[place] [address] [place] [address] [facility] Referral ID Status Reason Start Date Expiration Date Visits Requested Visits Authorized [id number] Authorized Auto-Generat ed Referral 06/14/2022 07/14/2023 1 1 [facility] for referral (narrative)* Diagnostic Procedure Only (Routine) - Closed Specialty Diagnoses / Procedures Referred By Contac t Referred To Contact [facility] Diagnoses Liver lesion Procedures US ABD RT UPPER QUADRANT US ABDOMINAL REAL [place] W/[place] [address] [address] [place] [address] Referral ID Status Reason Start Date Expiration Date V isits Requested Visits Authorized [id number] Closed Auto-Generate d Referral 06/14/2022 07/14/2023 1 1 [facility] for referral (narrative)* Diagnostic Procedure Only (Routine) - Closed Specialty Diagnoses / Procedures Referred By Contac t Referred To Contact [facility] IM[facility] Diagnoses Elevated LFTs Procedures US ABD RT UPPER QUADRANT US ABDOMINAL REAL TIME W/[place] [address] [address] [place] [address] Referral ID Status Reason Start Date Expiration Date V isits Requested Visits Authorized [id number] Closed Auto-Generate d Referral 11/24/2021 12/24/2022 1 1 [facility] for referral (narrative)* Diagnostic Procedure Only (Routine) - Closed Specialty Diagnoses / Procedures Referred By Contac t Referred To Contact [facility] Diagnoses Nausea Procedures NM GASTRIC EMPTYING SOLID GASTRIC [place] [address] [address] [facility] [address] [place] [address] Referral ID Status Reason Start Date Expiration Date V isits Requested Visits Authorized [id number] Closed Auto-Generate d Referral 08/31/2022 09/30/2023 1 1 [facility] for referral (narrative)* Outpatient Procedure (Routine) - Authorized Specialty Diagnoses / Procedures Referred By Contac t Referred To Contact [facility] Diagnoses Gastroparesis Procedures ECG COMPLETE ECG ROUTINE ECG W/LEAST 12 LDS W/I&R Solo Mora MD [address] [place] [address] [address] Referral ID Status Reason Start Date Expiration Date Visits Requested Visits Authorized [id number] Authorized Auto-Generat ed Referral 11/02/2023 11/01/2024 1 1 [facility] for referral (narrative)* Outpatient Procedure (Routine) - Authorized Specialty Diagnoses / Procedures Referred By Contac t Referred To Contact [facility] Diagnoses Syncope and collapse Procedures ECG COMPLETE ECG ROUTINE ECG W/LEAST 12 LDS W/I&R Solo Mora MD [address] [place] [address] [address] [place] [address] Referral ID Status Reason Start Date Expiration Date Visits Requested Visits Authorized [id number] Authorized Auto-Generat ed Referral 12/19/2023 12/18/2024 1 1 [facility] for referral (narrative)* Diagnostic Procedure Only (Routine) - Closed Specialty Diagnoses / Procedures Referred By Contac t Referred To Contact [facility] Diagnoses Nausea Procedures NM GASTRIC EMPTYING SOLID [place]STRIC [place] [address] [place] [address] Molecular [facility] [address] [place] [address] Referral ID Status Reason Start Date Expiration Date V isits Requested Visits Authorized [id number] Closed Auto-Generate d Referral 08/31/2022 09/30/2023 1 1 * Outpatient Procedure (Routine) - Closed Specialty Diagnoses / Procedures Referred By Contac t Referred To [facility] Diagnoses PUD (peptic ulcer disease) Procedures EGD DIAGNOSTIC ESOPHAGOGASTRODUODENOSC OPY [place] [address] [place] [address] [address] Referral ID Status Reason Start Date Expiration Date V isits Requested Visits Authorized [id number] Closed Auto-Generate d Referral 06/30/2022 07/01/2023 1 1 [facility] for referral (narrative)* Outpatient Procedure (Routine) - Closed Specialty Diagnoses / Procedures Referred By Contac t Referred To [facility] Diagnoses PUD (peptic ulcer disease) Procedures EGD DIAGNOSTIC ESOPHAGOGASTRODUODENOSC OPY [place] [address] [place] [address] [facility] [address] [place] [address] Referral ID Status Reason Start Date Expiration Date V isits Requested Visits Authorized [id number] Closed Auto-Generate d Referral 06/30/2022 07/01/2023 1 1 * Outpatient Procedure (Routine) - Closed Specialty Diagnoses / Procedures Referred By Contac t Referred To [facility] Diagnoses Bilious vomiting with nausea Right sided abdominal pain Procedures EGD DIAGNOSTIC ESOPHAGOGASTRODUODENOSC OPY [place] [address] [place] [address] [facility] [address] [place] [address] Referral ID Status Reason Start Date Expiration Date V isits Requested Visits Authorized [id number] Closed Auto-Generate d Referral 05/27/2022 05/27/2023 1 1 [facility] for visit NarrativePATIENT HERE AT THE REQUEST OF DR. HAGEN FOR ENGLISH & ABNORMAL US. ULTRASOUND AND LABS IN REFERRAL. PATIENT STATES SHE FEELS LETHARGIC & HAS OCCASIONAL ABDOMINAL PAINStratford [facility]ingo [facility] Other [facility] for visit Narrative* Diagnostic Procedure Only (Routine) - Closed Specialty Diagnoses / Procedures Referred By Contac t Referred To Contact [facility] IMAGING Diagnoses Liver lesion Procedures US ABD RT UPPER QUADRANT US ABDOMINAL REAL [place] W/[place] [address] [address] [place] [address] Referral ID Status Reason Start Date Expiration Date V isits Requested Visits Authorized [id number] Closed Auto-Generate d Referral 06/14/2022 07/14/2023 1 1 [facility] for visit Narrative* Diagnostic Procedure Only (Routine) - Closed Specialty Diagnoses / Procedures Referred By Contmusa t Referred To Contact [facility] IMAGING Diagnoses Elevated LFTs Procedures US ABD RT UPPER QUADRANT US ABDOMINAL REAL [place] W/[place] [address] [place] [address] [place] [address] Referral ID Status Reason Start Date Expiration Date V isits Requested Visits Authorized [id number] Closed Auto-Generate d Referral 11/24/2021 12/24/2022 1 1 [facility] for visit Narrative* Diagnostic Procedure Only (Routine) - Closed Specialty Diagnoses / Procedures Referred By Norma t Referred To Contact [facility] Diagnoses Nausea Procedures NM GASTRIC EMPTYING SOLID [place]STRIC [place] [address] [place] [address] Molecular [facility] Functional Imaging [address] [place] [address] Referral ID Status Reason Start Date Expiration Date V isits Requested Visits Authorized [id number] Closed Auto-Generate d Referral 08/31/2022 09/30/2023 1 1 [facility] for visit Narrative* Outpatient Procedure (Routine) - Closed Specialty Diagnoses / Procedures Referred By Contac t Referred To Contact [facility] Diagnoses PUD (peptic ulcer disease) Procedures EGD DIAGNOSTIC ESOPHAGOGASTRODUODENOSC OPY [place] [address] [place] [address] [facility] [address] [place] [address] Referral ID Status Reason Start Date Expiration Date V isits Requested Visits Authorized [id number] Closed Auto-Generate d Referral 06/30/2022 07/01/2023 1 1 [facility] for visit Narrative* Outpatient Procedure (Routine) - Closed Specialty Diagnoses / Procedures Referred By Contac t Referred To Contact [facility] Diagnoses Bilious vomiting with nausea Right sided abdominal pain Procedures EGD DIAGNOSTIC ESOPHAGOGASTRODUODENOSC OPY [place] [address] [place] [address] [facility] [address] [place] [address] Referral ID Status Reason Start Date Expiration Date V isits Requested Visits Authorized [id number] Closed Auto-Generate d Referral 05/27/2022 05/27/2023 1 1 [facility] for visit Narrative* Rehabilitation - Outpatient (Routine) - Authorized Specialty Diagnoses / Procedures Referred By Contac t Referred To Contact Physical Therapy Diagnoses Cervical radiculopathy Procedures CT OFFICE/OUTPATIENT NEW [facility] MDM 60 MINUTES Giovani Hagen MD 112 [facility] [address] [place] [address] Phone: tel: fax: Jumana Burgess, PT 112 [facility] [address] [place] [address] Phone: tel: fax: Referral ID Status Reason Start Date Expiration Date Visits Requested Visits Authorized [id number] Authorized Specialty Services Required 01/25/2024 10/21/2024 25 25 [facility] Healthcare[facility] for [facility] Narrative* Rehabilitation - Outpatient (Routine) - Authorized Specialty Diagnoses / Procedures Referred By Norma kennedy Referred To Contact Physical Therapy Diagnoses Cervical radiculopathy Unspecified injury of right ankle, subsequent encounter Procedures CT OFFICE/OUTPATIENT NEW [facility] MDM 60 MINUTES Giovani Hagen MD 112 [facility] [address] [place] [address] Phone: tel: fax: Jumana Burgess, PT 112 [facility] [address] [place] [address] Phone: tel: fax: Referral ID Status Reason Start Date Expiration Date Visits Requested Visits Authorized [id number] Authorized Specialty Services Required 01/25/2024 10/21/2024 25 25 [facility] Healthcare Summary Purpose Family History No Family History Records FoundNo Family History Records FoundNo Family History Records FoundNo Family History Records FoundNo Family History Records FoundNo Family History Records FoundNo Family History Records FoundNo Family History Records Found No data available for this section No Family History Records FoundNo Family History Records Found Advance Directives Advance Directive Response Recorded Date/ Time Advance Directives No December 10, 2018 10:13am Advance Directive Response Recorded Date/ Time Advance Directives No December 10, 2018 11:13am Chief Complaint and Reason for Visit Chief Complaint ENGLISH, Elevated Liver Enyzmes Chief Complaint R93.89 Reason for Referral Specialty Diagnoses / Procedures Referred By Norma kennedy Referred To Contact [facility] Diagnoses Syncope, unspecified syncope type Procedures CARDIOVASCULAR MEDICINE OP FOLLOW UP APPT ORDER Solo Mora MD [address] [place] [address] [facility] [address] [address] Referral ID Status Reason Start Date Expiration Date Visits Requested Visits Authorized [id number] Ref Not Required PCP Requested Referral 12/28/2023 12/27/2024 1 1 Specialty Diagnoses / Procedures Referred By Contac t Referred To Contact [facility] Diagnoses Syncope, unspecified syncope type Procedures STRESS ECHO TREADMILL ECHO TTHRC R-T 2D W/WO M-MODE COMPLETE REST&ST KochSolo ybarar MD [address] [place] [address] [facility] [address] [address] Referral ID Status Reason Start Date Expiration Date Visits Requested Visits Authorized [id number] Authorized Auto-Generat ed Referral 12/19/2023 12/18/2024 1 1 Specialty Diagnoses / Procedures Referred By Contac t Referred To Contact CT IMAGING Diagnoses Bilious vomiting with nausea Right sided abdominal pain Nausea Procedures CT ABD/PEL WO IVCON CT ABD & PEL[place] [address] [place] [address] [address] [facility] [place] [address] Referral ID Status Reason Start Date Expiration Date V isits Requested Visits Authorized [id number] Closed Auto-Generate d Referral 05/27/2022 06/26/2023 1 1 Additional Source Comments INFORMATION SOURCE (unrecogn ized section and content) DATE CREATED AUTHOR 11/09/2018 [facility] DATE CREATED AUTHOR AUTHOR'S ORGANIZ ATION 08/23/2021 [facility] dical Specialist DATE CREATED AUTHOR AUTHOR'S ORGANIZ ATION 07/17/[address] [facility] DATE CREATED AUTHOR AUTHOR'S ORGANIZ ATION 10/29/2022 [facility] DATE CREATED AUTHOR AUTHOR'S ORGANIZ ATION 10/31/[address] [facility] DATE CREATED AUTHOR AUTHOR'S ORGANIZ ATION 03/22/2023 [facility] DATE CREATED AUTHOR AUTHOR'S ORGANIZ ATION 03/28/2023 [facility] DATE CREATED AUTHOR AUTHOR'S ORGANIZ ATION 12/29/2023 [facility] DATE CREATED AUTHOR AUTHOR'S ORGANIZ ATION 02/23/2024 [facility] DATE CREATED AUTHOR AUTHOR'S ORGANIZ ATION 03/13/2024 [facility] dical Specialists EPIC Care Teams (unrecognized sec tion and content) Team Status: Active Member Role Status Dates Rugen M Hieu , MD Primary Care Provider Active Team Status: Inactive Member Role Status Dates Erwin yHlton MD Attending Provider Active Giovani Hagen MD Primary Care Provider Active Mural Artist Relationship Specialty Start Date End Date BrierfieldGiovani lunaalay [address] [place] [address] [place] [address] PCP - General Family Medicine 03/27/19 Mural Artist Relationship Specialty Start Date End Date BrierfieldGiovani luna Mabalay [address] [place] [address] [place] [address] PCP - General Family Medicine 03/27/19 Mural Artist Relationship Specialty Start Date End Date HieuGiovani Mabalay [address] [place] [address] [place] [address] PCP - General Family Medicine 03/27/19 Mural Artist Relationship Specialty Start Date End Date BrierfieldGiovani luna Mabalay [address] [place] [address] [place] [address] PCP - General Family Medicine 03/27/19 Mural Artist Relationship Specialty Start Date End Date HieuGiovani luna Mabalay [address] [place] [address] [place] [address] PCP - General Family Medicine 03/27/19 Mural Artist Relationship Specialty Start Date End Date HieuGiovani luna Mabalay [address] [place] [address] [place] [address] PCP - General Family Medicine 03/27/19 Mural Artist Relationship Specialty Start Date End Date BrierfieldGiovani Mabalay [address] [place] [address] [place] [address] PCP - General Family Medicine 03/27/19 Mural Artist Relationship Specialty Start Date End Date HieuGiovani Mabalay [address] [place] [address] [place] [address] PCP - General Family Medicine 03/27/19 Mural Artist Relationship Specialty Start Date End Date Giovani Hagen [address] [place] [address] [place] [address] PCP - General Family Medicine 03/27/19 Mural Artist Relationship Specialty Start Date End Date Giovani Hagen [address] [place] [address] [place] [address] PCP - General Family Medicine 03/27/19 Mural Artist Relationship Specialty Start Date End Date Giovani Hagen [address] [place] [address] [place] [address] PCP - General Family Medicine 03/27/19 Mural Artist Relationship Specialty Start Date End Date Giovani Hagencbarmando [address] [place] [address] [place] [address] PCP - General Family Medicine 03/27/19 Mural Artist Relationship Specialty Start Date End Date Hieu Giovani Rust [address] [place] [address] [place] [address] PCP - General Family Medicine 03/27/19 Mural Artist Relationship Specialty Start Date End Date Kiran Hagenbety Ryancbarmando [address] [place] [address] [place] [address] PCP - General Family Medicine 03/27/19 Mural Artist Relationship Specialty Start Date End Date Giovani Hagen MD [address] [place] [address] [place] [address] PCP - General Family Medicine 03/27/19 Mural Artist Relationship Specialty Start Date End Date Giovain Hagen MD [address] [place] [address] [place] [address] PCP - General Family Medicine 03/27/19 Mural Artist Relationship Specialty Start Date End Date Giovani Hagen MD [address] [place] [address] [place] [address] PCP - General Family Medicine 03/27/19 Mural Artist Relationship Specialty Start Date End Date Giovani Hagen MD [address] [place] [address] [place] [address] PCP - General Family Medicine 03/27/19 Mural Artist Relationship Specialty Start Date End Date Giovani Hagen MD [address] [place] [address] [place] [address] PCP - General Family Medicine 03/27/19 Mural Artist Relationship Specialty Start Date End Date Giovani aHgen MD [address] [facility] [address] [place] [address] PCP - General Family Medicine 03/27/19 Mural Artist Relationship Specialty Start Date End Date Giovani Hagen MD [address] [facility] [address] [place] [address] PCP - General Family Medicine 03/27/19 Mural Artist Relationship Specialty Start Date End Date Giovani Hagen MD [address] [place] [address] [place] [address] PCP - General Family Medicine 03/27/19 Mural Artist Relationship Specialty Start Date End Date Giovani Hagen MD [address] [place] [address] [place] [address] PCP - General Family Medicine 03/27/19 Mural Artist Relationship Specialty Start Date End Date Giovani Hagen MD [address] [place] [address] [place] [address] PCP - General Family Medicine 03/27/19 Mural Artist Relationship Specialty Start Date End Date Giovani Hagen MD [address] [place] [address] [place] [address] PCP - General Family Medicine 03/27/19 Mural Artist Relationship Specialty Start Date End Date Giovani Hagen MD [address] [place] [address] [place] [address] PCP - General Family Medicine 03/27/19 Mural Artist Relationship Specialty Start Date End Date Giovani Hagen MD [address] [place] [address] [place] [address] PCP - General Family Medicine 03/27/19 Mural Artist Relationship Specialty Start Date End Date Giovani Hagen MD [address] [place] [address] [place] [address] PCP - Medical [place] [employer] 10/22/18 04/23/99 Giovani Hagen MD [address] [place] [address] [place] [address] PCP - General Family Medicine 08/30/22 Mural Artist Relationship Specialty Start Date End Date Giovani Hagen MD [address] [place] [address] [place] [address] PCP - Medical [place] [employer] 10/22/18 04/23/99 Giovani Hagen MD [address] [place] [address] [place] [address] PCP - General Family Medicine 08/30/22 Mural Artist Relationship Specialty Start Date End Date Giovani Hagen MD [address] [place] [address] [place] [address] PCP - Medical [place] [employer] 10/22/18 04/23/99 Giovani Hagen MD [address] [facility] [address] [place] [address] PCP - General Family Medicine 08/30/22 Mural Artist Relationship Specialty Start Date End Date Giovani Hagen MD [address] [facility] [address] [place] [address] PCP - Medical [place] [employer] 10/22/18 04/23/99 Giovani Hagen MD [address] [facility] [address] [place] [address] PCP - General Family Medicine 08/30/22 Mural Artist Relationship Specialty Start Date End Date Giovani Hagen MD [address] [facility] [address] [place] [address] PCP - Medical [place] [employer] 10/22/18 04/23/99 Giovani Hagen MD [address] [facility] [address] [place] [address] PCP - General Family Medicine 08/30/22 Mural Artist Relationship Specialty Start Date End Date Giovani Hagen MD [address] [facility] [address] [place] [address] PCP - Medical [place] [employer] 10/22/18 04/23/99 Giovani Hagen MD [address] [facility] [address] [place] [address] PCP - General Family Medicine 08/30/22 Mural Artist Relationship Specialty Start Date End Date Giovani Hagen MD [address] [facility] [address] [place] [address] PCP - Medical [place] [employer] 10/22/18 04/23/99 Giovani Hagen MD [address] [facility] [address] [place] [address] PCP - General Family Medicine 08/30/22 Mural Artist Relationship Specialty Start Date End Date Giovani Hagen MD [address] [facility] [address] [place] [address] PCP - Medical [place] [employer] 10/22/18 04/23/99 Giovani Hagen MD [address] [facility] [address] [place] [address] PCP - General Family Medicine 08/30/22 Mural Artist Relationship Specialty Start Date End Date Giovani Hagen MD [address] [facility] [address] [place] [address] PCP - Medical [place] [employer] 10/22/18 04/23/99 Giovani Hagen MD [address] [facility] [address] [place] [address] PCP - General Family Medicine 08/30/22 Mural Artist Relationship Specialty Start Date End Date Giovani Hagen MD [address] [facility] [address] [place] [address] PCP - Medical [place] [employer] 10/22/18 04/23/99 Giovani Hagen MD [address] [facility] [address] [place] [address] PCP - General Family Medicine 08/30/22 Mural Artist Relationship Specialty Start Date End Date Giovani Hagen MD [address] [facility] [address] [place] [address] PCP - Medical [place] [employer] 10/22/18 04/23/99 Giovani Hagen MD [address] [facility] [address] [place] [address] PCP - General Family Medicine 08/30/22 Mural Artist Relationship Specialty Start Date End Date Giovani Hagen MD [address] [facility] [address] [place] [address] PCP - Medical [place] [employer] 10/22/18 04/23/99 Giovani Hagen MD [address] [facility] [address] [place] [address] PCP - General Family Medicine 08/30/22 Mural Artist Relationship Specialty Start Date End Date Giovani Hagen MD [address] [facility] [address] [place] [address] PCP - Medical [place] [employer] 10/22/18 04/23/99 Giovani Hagen MD [address] [facility] [address] [place] [address] PCP - General Family Medicine 08/30/22 Mural Artist Relationship Specialty Start Date End Date Giovani Hagen MD [address] [facility] [address] [place] [address] PCP - Medical [place] [employer] 10/22/18 04/23/99 Giovani Hagen MD [address] [facility] [address] [place] [address] PCP - General Family Medicine 08/30/22 Mural Artist Relationship Specialty Start Date End Date Giovani Hagen MD [address] [address] PCP - Medical [place] [employer] 10/22/18 04/23/99 Giovani Hagen MD [address] [facility] [address] [place] [address] PCP - General Family Medicine 08/30/22 Mural Artist Relationship Specialty Start Date End Date Giovani Hagen MD [address] [address] PCP - Medical [place] [employer] 10/22/18 04/23/99 Giovani Hagen MD [address] [place] [address] PCP - General Family Medicine 08/30/22 Mural Artist Relationship Specialty Start Date End Date Giovani Hagen MD [address] [address] PCP - Medical [place] [employer] 10/22/18 04/23/99 Giovani Hagen MD [address] [place] [address] PCP - General Family Medicine 08/30/22 Source Comments (unrecognize d section and content) In the event this informatio n is protected by the Federal Confidentiality of Alcohol and Drug Abuse Patient Records regulations: The Federal rules restrict any use of the information to criminally investigate or prosecute any alcohol or drug abuse patient.TrihealthIn the event this information is protected by the Federal Confidentiality of Alcohol and Drug Abuse Patient Records regulations: The Federal rules restrict any use of the information to criminally investigate or prosecute any alcohol or drug abuse patient.TrihealthIn the event this information is protected by the Federal Confidentiality of Alcohol and Drug Abuse Patient Records regulations: The Federal rules restrict any use of the information to criminally investigate or prosecute any alcohol or drug abuse patient.TrihealthIn the event this information is protected by the Federal Confidentiality of Alcohol and Drug Abuse Patient Records regulations: The Federal rules restrict any use of the information to criminally investigate or prosecute any alcohol or drug abuse patient.TrihealthIn the event this information is protected by the Federal Confidentiality of Alcohol and Drug Abuse Patient Records regulations: The Federal rules restrict any use of the information to criminally investigate or prosecute any alcohol or drug abuse patient.TrihealthIn the event this information is protected by the Federal Confidentiality of Alcohol and Drug Abuse Patient Records regulations: The Federal rules restrict any use of the information to criminally investigate or prosecute any alcohol or drug abuse patient.TrihealthIn the event this information is protected by the Federal Confidentiality of Alcohol and Drug Abuse Patient Records regulations: The Federal rules restrict any use of the information to criminally investigate or prosecute any alcohol or drug abuse patient.TrihealthIn the event this information is protected by the Federal Confidentiality of Alcohol and Drug Abuse Patient Records regulations: The Federal rules restrict any use of the information to criminally investigate or prosecute any alcohol or drug abuse patient.TrihealthIn the event this information is protected by the Federal Confidentiality of Alcohol and Drug Abuse Patient Records regulations: The Federal rules restrict any use of the information to criminally investigate or prosecute any alcohol or drug abuse patient.TrihealthIn the event this information is protected by the Federal Confidentiality of Alcohol and Drug Abuse Patient Records regulations: The Federal rules restrict any use of the information to criminally investigate or prosecute any alcohol or drug abuse patient.TrihealthIn the event this information is protected by the Federal Confidentiality of Alcohol and Drug Abuse Patient Records regulations: The Federal rules restrict any use of the information to criminally investigate or prosecute any alcohol or drug abuse patient.TrihealthIn the event this information is protected by the Federal Confidentiality of Alcohol and Drug Abuse Patient Records regulations: The Federal rules restrict any use of the information to criminally investigate or prosecute any alcohol or drug abuse patient.TrihealthIn the event this information is protected by the Federal Confidentiality of Alcohol and Drug Abuse Patient Records regulations: The Federal rules restrict any use of the information to criminally investigate or prosecute any alcohol or drug abuse patient.TrihealthIn the event this information is protected by the Federal Confidentiality of Alcohol and Drug Abuse Patient Records regulations: The Federal rules restrict any use of the information to criminally investigate or prosecute any alcohol or drug abuse patient.TrihealthIn the event this information is protected by the Federal Confidentiality of Alcohol and Drug Abuse Patient Records regulations: The Federal rules restrict any use of the information to criminally investigate or prosecute any alcohol or drug abuse patient.TrihealthIn the event this information is protected by the Federal Confidentiality of Alcohol and Drug Abuse Patient Records regulations: The Federal rules restrict any use of the information to criminally investigate or prosecute any alcohol or drug abuse patient.TrihealthIn the event this information is protected by the Federal Confidentiality of Alcohol and Drug Abuse Patient Records regulations: The Federal rules restrict any use of the information to criminally investigate or prosecute any alcohol or drug abuse patient.TrihealthIn the event this information is protected by the Federal Confidentiality of Alcohol and Drug Abuse Patient Records regulations: The Federal rules restrict any use of the information to criminally investigate or prosecute any alcohol or drug abuse patient.TrihealthIn the event this information is protected by the Federal Confidentiality of Alcohol and Drug Abuse Patient Records regulations: The Federal rules restrict any use of the information to criminally investigate or prosecute any alcohol or drug abuse patient.TrihealthIn the event this information is protected by the Federal Confidentiality of Alcohol and Drug Abuse Patient Records regulations: The Federal rules restrict any use of the information to criminally investigate or prosecute any alcohol or drug abuse patient.TrihealthIn the event this information is protected by the Federal Confidentiality of Alcohol and Drug Abuse Patient Records regulations: The Federal rules restrict any use of the information to criminally investigate or prosecute any alcohol or drug abuse patient.TrihealthIn the event this information is protected by the Federal Confidentiality of Alcohol and Drug Abuse Patient Records regulations: The Federal rules restrict any use of the information to criminally investigate or prosecute any alcohol or drug abuse patient.TrihealthIn the event this information is protected by the Federal Confidentiality of Alcohol and Drug Abuse Patient Records regulations: The Federal rules restrict any use of the information to criminally investigate or prosecute any alcohol or drug abuse patient.TrihealthIn the event this information is protected by the Federal Confidentiality of Alcohol and Drug Abuse Patient Records regulations: The Federal rules restrict any use of the information to criminally investigate or prosecute any alcohol or drug abuse patient.TrihealthIn the event this information is protected by the Federal Confidentiality of Alcohol and Drug Abuse Patient Records regulations: The Federal rules restrict any use of the information to criminally investigate or prosecute any alcohol or drug abuse patient.TrihealthIn the event this information is protected by the Federal Confidentiality of Alcohol and Drug Abuse Patient Records regulations: The Federal rules restrict any use of the information to criminally investigate or prosecute any alcohol or drug abuse patient.TrihealthIn the event this information is protected by the Federal Confidentiality of Alcohol and Drug Abuse Patient Records regulations: The Federal rules restrict any use of the information to criminally investigate or prosecute any alcohol or drug abuse patient.TrihealthIn the event this information is protected by the Federal Confidentiality of Alcohol and Drug Abuse Patient Records regulations: The Federal rules restrict any use of the information to criminally investigate or prosecute any alcohol or drug abuse patient.TrihealthIn the event this information is protected by the Federal Confidentiality of Alcohol and Drug Abuse Patient Records regulations: The Federal rules restrict any use of the information to criminally investigate or prosecute any alcohol or drug abuse patient.TrihealthIn the event this information is protected by the Federal Confidentiality of Alcohol and Drug Abuse Patient Records regulations: The Federal rules restrict any use of the information to criminally investigate or prosecute any alcohol or drug abuse patient.TrihealthIn the event this information is protected by the Federal Confidentiality of Alcohol and Drug Abuse Patient Records regulations: The Federal rules restrict any use of the information to criminally investigate or prosecute any alcohol or drug abuse patient.TrihealthIn the event this information is protected by the Federal Confidentiality of Alcohol and Drug Abuse Patient Records regulations: The Federal rules restrict any use of the information to criminally investigate or prosecute any alcohol or drug abuse patient.[facility] Reason for Visit (unrecogniz ed section and [...] & PEL[place] [address] [address] [place] [address] Referral ID Status Reason Start Date Expiration Date V isits Requested Visits Authorized [id number] Closed Auto-Generate d Referral 05/27/2022 06/26/2023 1 [...] Reason Onset Date Comments Med Refill 02/20/2024 Reason Onset Date Comments Med Refill 03/06/2024 Reason Onset Date Comments Med Refill 03/07/2024 Goals (unrecognized section and content) Goals may [...] BE BASED ON THE PRIMARY CLINICAL RECORDS. [facility] [facility]. provides no warranty or guarantee of the accuracy or completeness of information in this document.
--- NOTE | 2024-03-17 20:24 | XR_ITS ---
The [address] [address] Patient Name: ORION HARPER MRN: [id number] date: 1990 Sex: F Assigned Patient Location: ER Current Patient Location: Accession/Order Number: [id number] Exam Date: 03/17/2024 20:30 Report Date: 03/17/2024 22:51 At the request of: BERONICA MCWILLIAMS Procedure: XR ankle RT min 3V EXAM: XR ankle RT min 3V HISTORY: pain COMPARISON: 03/04/2024 FINDINGS/IMPRESSION: 1. Small ossification along the medial aspect of the medial malleolus, consistent with known small avulsion fracture as seen on the 03/04/2024 exam. 2. No new fracture. 3. There is subcutaneous soft tissue edema about the ankle joint. 4. Ankle mortise is maintained. 5. No significant degeneration of the mid foot or hindfoot. 6. Moderate ankle joint effusion. Electronically authenticated by: MORGAN MUÑOZ Date: 03/17/2024 22:51
[2024-03-17] MEDS: HYDROCODONE/ACET 5-325 MG TABLET 1 TAB PO (20:50)
--- NOTE | 2024-03-17 20:58 | ED_ITS ---
HPI HPI - General Adult General Chief complaint: Extremity Injury, Lower Stated complaint: LE INJURY Time Seen by Provider: 03/17/24 20:19 Source: patient Mode of arrival: walk-in Limitations: no limitations History of Present Illness HPI narrative: 23-year-old female presents here with chief complaint of right ankle pain and swelling. Patient had a an injury several months ago to this ankle and retwisted it again on 4 days ago. Since that time she has been able to ambulate but has increased pain and swelling. She has not followed up with her orthopedist since this injury occurred. She did have an MRI on the of this month. She does not have the results of that MRI. Patient has crutches and a walking boot at home but was able to ambulate in here without any thing on her foot tonight. Soft tissue swelling is noted. Related Data Home Medications ?Medication ?Instructions ?Recorded ?Confirmed albuterol sulfate 90 mcg/actuation 2 inh inhalation Q4H PRN shortness 02/06/23 03/17/24 aerosol inhaler of breath or wheezing bupropion HCl 150 mg tablet,12 hr 150 mg PO BID 02/06/23 03/17/24 sustained-release cariprazine 4.5 mg capsule 4.5 mg PO QPM 02/06/23 03/17/24 (Vraylar) epinephrine 0.3 mg/0.3 mL 0.3 ml subcut Q4H PRN anaphylaxis 02/06/23 03/17/24 injection, auto-injector ondansetron 4 mg disintegrating 4 mg PO Q8H PRN nausea and vomiting 02/28/23 03/17/24 tablet alprazolam 0.5 mg tablet 0.5 mg PO BID 03/17/24 03/17/24 cephalexin 250 mg capsule 250 mg PO Q12H PRN uti 03/17/24 03/17/24 conjugated estrogens 0.625 mg/gram 0.625 mg vaginal QDAY 03/17/24 03/17/24 vaginal cream (Premarin) dextroamphetamine-amphetamine ER 30 mg PO QDAY 03/17/24 03/17/24 30 mg 24hr capsule,extend release escitalopram oxalate 20 mg tablet 20 mg PO QDAY 03/17/24 03/17/24 meloxicam 15 mg tablet 15 mg PO QDAY 03/17/24 03/17/24 phentermine 37.5 mg tablet 37.5 mg PO QDAY 03/17/24 03/17/24 Previous Rx's ?Medication ?Instructions ?Recorded ibuprofen 800 mg tablet 800 mg PO Q8H PRN pain 14 days #40 02/10/23 tabs Allergies Allergy/AdvReac Type Severity Reaction Status Date / Time cat dander Allergy Anaphylaxis Verified 03/17/24 20:22 Iodinated Contrast Media Allergy Hives Verified 03/17/24 20:22 Opioid HPI Opioid Management Most Recent Opioid Data: Last Pain Scale 7 03/17/24 20:50 03/17/24 Review of Systems ROS Narrative All Systems are negative except as noted/marked.All systems reviewed and otherwise negative PFSH PFSH Medical History (Updated 03/17/24 @ 20:58 by Ayleen Krishnamurthy) 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 - depression (ICD-10) Ovarian cyst ?N83.209 - Unspecified ovarian cyst, unspecified side (ICD-10) HELLP (hemolytic anemia/elev liver enzymes/low platelets in ) ?O14.20 - HELLP syndrome (HELLP), unspecified trimester (ICD-10) Gestational hypertension ?O13.9 - Gestational [-induced] hypertension without significant pr oteinuria, unspecified trimester (ICD-10) Dizziness ?R42 - Dizziness and giddiness (ICD-10) Vitamin D deficiency ?E55.9 - Vitamin D deficiency, unspecified (ICD-10) Urinary tract infection ?N39.0 - Urinary tract infection, site not specified (ICD-10) Urinary frequency ?R35.0 - Frequency of micturition (ICD-10) Hypercholesterolemia ?E78.00 - Pure hypercholesterolemia, unspecified (ICD-10) Osteoarthritis, knee ?M17.9 - Osteoarthritis of knee, unspecified (ICD-10) Gastroparesis ?K31.84 - Gastroparesis (ICD-10) GERD (gastroesophageal reflux disease) ?K21.9 - Gastro-esophageal reflux disease without esophagitis (ICD-10) Dysuria ?R30.0 - Dysuria (ICD-10) Enlarged thyroid ?E04.9 - Nontoxic goiter, unspecified (ICD-10) Headache ?R51.9 - Headache, unspecified (ICD-10) Skin pain ?R20.8 - Other disturbances of skin sensation (ICD-10) Sciatica ?M54.30 - Sciatica, unspecified side (ICD-10) Poor concentration ?R41.840 - Attention and concentration deficit (ICD-10) ENGLISH (nonalcoholic steatohepatitis) ?K75.81 - Nonalcoholic steatohepatitis (ENGLISH) (ICD-10) Kidney stones ?N20.0 - Calculus of kidney (ICD-10) Mood swings ?R45.86 - Emotional lability (ICD-10) Sinusitis ?J32.9 - Chronic sinusitis, unspecified (ICD-10) Insomnia ?G47.00 - Insomnia, unspecified (ICD-10) Hypersexuality ?F52.8 - Other sexual dysfunction not due to a substance or known physiological condition (ICD-10) Hyperglycemia ?R73.9 - Hyperglycemia, unspecified (ICD-10) Elevated liver enzymes ?R74.8 - Abnormal levels of other serum enzymes (ICD-10) Dysphagia ?R13.10 - Dysphagia, unspecified (ICD-10) Diverticulitis ?K57.92 - Diverticulitis of intestine, part unspecified, without perforation or abscess without bleeding (ICD-10) Bipolar 1 disorder ?F31.9 - Bipolar disorder, unspecified (ICD-10) Attention deficit hyperactivity disorder ?F90.9 - Attention-deficit hyperactivity disorder, unspecified type (ICD-10) Abnormal involuntary movement ?R25.9 - Unspecified abnormal involuntary movements (ICD-10) Endometriosis ?N80.9 - Endometriosis, unspecified (ICD-10) Dyspareunia Pelvic pain ?R10.2 - Pelvic and perineal pain (ICD-10) History of blood transfusion ?Z92.89 - Personal history of other medical treatment (ICD-10) Anemia ?D64.9 - Anemia, unspecified (ICD-10) PTSD (post-traumatic stress disorder) ?F43.10 - Post-traumatic stress disorder, unspecified (ICD-10) Depression ?F32.A - Depression, unspecified (ICD-10) Anxiety ?F41.9 - Anxiety disorder, unspecified (ICD-10) COVID-19 ?U07.1 - COVID-19 (ICD-10) Asthma ?J45.909 - Unspecified asthma, uncomplicated (ICD-10) Migraine ?G43.909 - Migraine, unspecified, not intractable, without status migrainosus (ICD-10) Heartburn ?R12 - Heartburn (ICD-10) Constipation ?K59.00 - Constipation, unspecified (ICD-10) IBS (irritable bowel syndrome) ?K58.9 - Irritable bowel syndrome without diarrhea (ICD-10) Tachycardia ?R00.0 - Tachycardia, unspecified (ICD-10) Syncope ?R55 - Syncope and collapse (ICD-10) Surgical History (Updated 02/06/23 @ 11:25 by Lindsey Quintero NP) History of esophagogastroduodenoscopy (EGD) ?Z98.890 - Other specified postprocedural states (ICD-10) History of colonoscopy ?Z98.890 - Other specified postprocedural states (ICD-10) History of hysterectomy ?Z90.710 - Acquired absence of both cervix and uterus (ICD-10) History of section ?Z98.891 - History of uterine scar from previous surgery (ICD-10) Family History (Updated 02/06/23 @ 11:25 by Lindsey Quintero NP) Other Family history of diabetes mellitus Family history of hypertension Family history of ovarian cancer Social History Within the past year, how often did you have a drink containing alcohol: 2-4 times a month Smoking status: Former smoker Non-prescribed substance use: denies use 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 General: The patient appears well and in no apparent distress. Patient is resting comfortably on cart. Skin: Warm, dry, no pallor noted. There is no rash noted. Head: Normocephalic, atraumatic Eye: Normal conjunctiva, no drainage, EOMI. PERRL Cardiovascular: Regular Rate and Rhythm Musculoskeletal: soft tissue swelling, Right ankle bilaterally, neurovascularly intact, good capillary refill distally, patient has no evidence of calf tenderness, no pitting edema, symmetrical pulses noted bilaterally Neurological: A&O x4, normal speech Psychiatric: Cooperative Constitutional Vital Signs, click to edit/add: Last Vital Signs Temp 98.7 F 03/17/24 20:17 Pulse 94 H 03/17/24 20:17 Resp 21 H 03/17/24 20:17 BP 127/87 03/17/24 20:17 Pulse Ox 99 03/17/24 20:17 O2 Del Method Room Air 03/17/24 20:17 Course Vital Signs Vital signs: Vital Signs Temperature 98.7 F 03/17/24 20:17 Pulse Rate 94 H 03/17/24 20:17 Respiratory Rate 21 H 03/17/24 20:17 Blood Pressure 127/87 03/17/24 20:17 Pulse Oximetry 99 03/17/24 20:17 Oxygen Delivery Method Room Air 03/17/24 20:17 Temperature 98.7 F 03/17/24 20:17 Pulse Rate 94 H 03/17/24 20:17 Respiratory Rate 21 H 03/17/24 20:17 Blood Pressure 127/87 03/17/24 20:17 Pulse Oximetry 99 03/17/24 20:17 Oxygen Delivery Method Room Air 03/17/24 20:17 Medical Decision Making MDM Narrative Medical decision making narrative: Here to the emergency room after reinjuring her right ankle. She sees Dr. batista MRI. Patient's MRI results were given to the patient and she does have a follow-up appointment. She has since had a new injury. She has walking boot and crutches at home. Carmelo wrap applied here by nursing staff extreme neurovascularly intact. New x-ray today shows soft tissue swelling no new acute fracture noted. Patient will follow-up with on March 25 at 10:30 AM. She will call his office tomorrow morning to try to get in sooner. Patient verbalized understanding agrees with plan of care Differential Diagnosis Differential Diagnosis: ankle claritza, ankle fracture Medical Records Medical records reviewed: Yes I reviewed the patient's medical records Imaging Data ankle: My impression: Swelling no acute new injury old avulsion noted Discharge Plan Discharge Chief Complaint: Extremity Injury, Lower Clinical Impression: Ankle sprain Patient Disposition: Home, Self-Care Time of Disposition Decision: 20:57 Condition: Good Prescriptions / Home Meds: No Action albuterol sulfate 90 mcg/actuation HFA aerosol inhaler 2 inh INHALATION Q4H PRN (Reason: shortness of breath or wheezing) bupropion HCl 150 mg tablet sustained-release 12 hr 150 mg PO BID Vraylar 4.5 mg capsule 4.5 mg PO QPM epinephrine 0.3 mg/0.3 mL auto-injector 0.3 ml subcut Q4H PRN (Reason: anaphylaxis) ibuprofen 800 mg tablet 800 mg PO Q8H PRN (Reason: pain) 14 Days Qty: 40 0RF ondansetron 4 mg tablet,disintegrating 4 mg PO Q8H PRN (Reason: nausea and vomiting) alprazolam 0.5 mg tablet 0.5 mg PO BID cephalexin 250 mg capsule 250 mg PO Q12H PRN (Reason: uti) Premarin 0.625 mg/gram cream 0.625 mg vaginal QDAY dextroamphetamine-amphetamine 30 mg capsule,extended release 24hr 30 mg PO QDAY escitalopram oxalate 20 mg tablet 20 mg PO QDAY meloxicam 15 mg tablet 15 mg PO QDAY phentermine 37.5 mg tablet 37.5 mg PO QDAY Print Language: Uzbek Instructions: Ankle Sprain (ED), Sprain (ED), P.R.I.C.E. Treatment (ED) Referrals: GIOVANI HAGEN [Primary Care Provider] - 1 week Keegan Batista MD [Physician] - 03/25/24 10:30 am Discharge Date/Time: 03/17/24 21:14
== END 2024-03-17 21:14 | disposition home or self-care (01) ==
PROVIDERS: Emergency Provider Internal Medicine; PCP Family Medicine
DX: S93.401A Sprain of unspecified ligament of right ankle, initial encounter (principal); X50.1XXA Overexertion from prolonged static or awkward postures, initial encounter; Z90.710 Acquired absence of both cervix and uterus; Z87.891 Personal history of nicotine dependence
CPT/HCPCS: 73610; 99283

== ENCOUNTER 2024-03-20 19:32 | Outpatient (REF) | payer OTHER, SELFPAY ==
--- OUTSIDE RECORDS SUMMARY | 2024-03-20 19:36 | XMS_ITS | CCD ---
Author Organization [facility] Care Team Providers Care Plastic Surgery Coordinator Name Role Phone SHIVANI MONTEIRO Referring Unavailable GIOVANI HAGEN Primary Care Unavailable MD Erwin Hylton Attending Provider MD Giovani Hagen Primary Care Provider Giovani Hagen Primary Care Provider Erwin Hylton Unavailable GIOVANI HAGEN Primary Care Physician [phone] SUREKHA ., DR SIMON Consulting Unavailabl e [...] Consulting Unavailable MD Erwin Hylton Attending Provider [phone] MD Giovani Hagen Primary Care Provider DAKHIL, NOMA Referring Un[facility] DAKHIL, NOMA Referring Un[facility] DAKHIL, NOMA Referring Unavailable [facility] Unavailable MARIA DOLORES COREY Referring Unavailable [facility] Unavailable Asaad, Imad Admitting Unavailable Asaad, Imad Attending [facility]available [facility] Asaad, Imad Admitting Unavailable Asaad, Imad Attending Unavailable [facility] Unavailable [facility] Provider [phone] BLOODMARY Admitting Unavailable BLOOD, MARY Culver Attending Unavailable JACKSON MONTENEGRO Consulting Unavailable SONIYA PATEL Referring [facility] Primary Care Unavailable MAKENNA AMAYA Consulting Unavailable Hieu MD [facility] Primary Care Provider Madhuri MISHRA Attending [...] sources) Iohexol Drug Allergy 04-12-20 19 Itching [facility] (20 sources) Iodine; Translations: [IODINE] Drug Allergy 04-11-20 19 Swelling, Itching [facility] (20 sources) Iohexol; Translations: [IOHEXOL] Drug Allergy 04-12-20 19 Itching [facility] (1 source) Cat Propensity to adverse reactions anaphylaxis brotips Other (1 source) tree nut, unspecified Propensity to adverse reactions anaphylaxis brotips Other (1 source) peanut allergenic extract Drug Allergy [facility] (1 source) Cat/Feline Product Derivatives Drug allergy (disorder) 01-08-20 13 [facility] (1 source) No Known Medication Allergies; Translations: [No Known Medication Allergies] Propensity to adverse reactions (disorder) [facility] (20 sources) Cat Hair Extract Allergy to substance 12-01-19 23 Anaphylaxis [facility] (20 sources) Iodinated Contrast Media Drug Allergy 12-01-19 23 Hives [facility] (20 sources) Prednisone & Diphenhydramine Drug Allergy 10-03-19 24 [facility] Medications Current Medications Medication Drug Class(es) Dates Sig (Normalized) Sig (Original) acetaminophen 1000 mg oral tablet (3 sources) Start: 06-12-2018 take 1000 mg by mouth once daily as needed for pain Tylenol 1,000 mg, Oral, Daily, PRN as needed for pain, Refills(s) 0 Start Date: 06/12/18 Status: Ordered [id number] 200 actuat albuterol 0.09 mg/actuat metered dose [...] 03/21/2024 Active take 1 capsule by mo nyh once daily amphetamine-dextroamphetamine XR (ADDERA LL XR) [...] capsules by mouth at bedtime Bis Subcit Vih-Thpui-Ibnqksym (PYLERA) 140-125-125 mg per capsule Take 3 [...] in partial remission, most recent episode manic ([facility]) TAKE 1 CAPSULE BY MOUTH EVERY DAY 30 capsule 5 08/14/2023 Active Start: 05-01-2019 take 1 capsule by mo [facility] once daily Vraylar 1.5 mg oral capsule 1.5 mg = 1 cap(s), Oral, Daily Start Date: 05/01/19 Status: Ordered take 1 capsule by mo [facility] once daily cariprazine (VRAYLAR) 3 mg cap Take by mouth once daily. 0 Active Vraylar Active Comment on above: Take by mouth once d aily. 1 capsule. cephalexin 250 mg oral tablet (3 sources) Cephalosporin Antibacterial Start: 12-28-2023 Keflex 250 mg Cap See Instructions, 1 cap po after intercourse to prevent UTI, # 20 cap(s), Refills(s) 2, Pharmacy: [facility]/pharmacy #[id number], 158, cm, 12/28/23 15:24:00 [...] days., # 50 cap(s), Refills(s) 0, Pharmacy: [facility]/pharmacy #[id number], 158, cm, 06/29/22 8:19:00 [...] 11/02/2022 Discontinued furosemide 20 mg oral tablet (19 sources) Loop Diuretic Start: 02-06-2024 End: 03-07-2024 [...] Status: Ordered meloxicam 15 mg oral tablet (10 sources) Nonsteroidal Anti-inflammatory Drug Start: 02-21-2024 take 1 tablet by mouth once daily meloxicam (Mobic) 15 MG tablet Indications: Acute right ankle pain Take 1 tablet (15 mg) by mouth Daily 30 tablet 2 02/21/2024 Active phentermine hydrochloride 37.5 mg oral tablet (20 sources) Sympathomimetic Amine Anorectic Start: 01-08-2024 End: 04-06-2024 take 1 tablet by mouth before mealtime phentermine (Adipex-P) 37.5 MG tablet Indications: Obesity (BMI 35.0-39.9 without comorbidity) Take 1 tablet (37.5 mg) by mouth in the morning. Take before meals. 30 tablet 03/07/2024 04/06/2024 Active Tramadol (3 sources) Opioid Agonist Start: [...] doxepin HCl (D OXEPIN ORAL) estrogens, conjugated (jail) 0.625 mg/ml vaginal cream (20 sources) Estrogen [...] Discontinued (Other) take 1 capsule by mo [facility] every twenty-four hours Vyvanse 50 MG [...] Comment on above: TAKE 1 CAPSULE BY [facility] EVERY DAY IN THE MORNING FOR 30 [...] tablet (20 sources) Proton Pump Inhibitor Start: 3 End: take 1 tablet by mouth twice [...] angina pectoris; Translations: [Atherosclerotic heart disease of [place] coronary artery without angina pectoris] Onset: 2 [...] FRIEDMAN, Madhuri Kendrick Where: [facility] [place] [address]- Medications What How Much When Instructions Unchanged [...] having recurrent UTI's. She does [facility] thru video zoom and gets abx without [...] # 20 cap(s), Refills(s) 2, Pharmacy: [id number], 158, cm, 12/28/23 15:24:00 EDT, Height/Length Dosing, 87, kg, 12/28/23 15:24:00 EDT, Weight Dosing E&M of Est. Patient Moderate 30-39 Min 60988 2. Kidney stones (N20.0: Calculus of kidney) S/p R ESWL. KUB 06/29/22 at [facility] - negative Metabolic workup 07/08/22 - slightly elevated Na (149), low output volume (1000 mL) KUB 11/16/23 - negative no recent flank pain, gross hematuria, stone passage. continue stone prevention diet repeat imaging 1 yr Ordered: cephalexin, See Instructions, 1 cap po after intercourse to prevent UTI, # 20 cap(s), Refills(s) 2, [id number] 158, cm, 12/28/23 15:24:00 EDT, Height/Length Dosing, 87, kg, 12/28/23 15:24:00 EDT, Weight Dosing E&M of Est. Patient Moderate 30-39 Min 18494 Urnls Dip Stick Auto w/o Microscopy POC 45083 3. Smoker (F17.200: Nicotine dependence, unspecified, uncomplicated) cessation encouraged Ordered: cephalexin, See Instructions, 1 cap po after intercourse to prevent UTI, # 20 cap(s), Refills(s) 2, [id number], 158, cm, 12/28/23 15:24:00 EDT, Height/Length Dosing, 87, kg, 12/28/23 15:24:00 EDT, Weight Dosing E&M of Est. Patient Moderate 30-39 Min 40642 Follow-up With When Contact Information BHAVESH DEJESUS PA-C, URL Within 1 year Additional Instructions: Patient Education Kidney Stones, Dptf-jn-Rpek Problem List/Past Medical History Ongoing Kidney stones [...] Mother. Immunizations Vaccine Date Status Comments SARSCoV2 mRNA(usrujsznr-fwme-h ucros) vac 11/02/2021 Recorded SARS-CoV-2 (COVID-19) mRNA [...] vaccine, inactiva (more content not included)... Normal [facility] Comment on above: Result Comment: Elec tronically Signed By: BHAVESH DEJESUS PA-C\Date and Time Signed: 12/28/23 16:01 EDT Ibrahima 12-19-2023 CNOV Office Visit (CARDMN ) BELGICA HARPER ([id number]) 1990 F Date Time Provider Department 12/19/23 2:45 PM SOLO MORA During your visit today, we recorded the following information about you: Pulse Blood pressure Weight Height 94/minute 127/91 85.3 kg 1.575 m Solo Mora MD 12/28/2023 2:49 AM Signed [facility] Department of Cardiovascular Medicine SECTION OF CARDIAC PACING and ELECTROPHYSIOLOGY OUTPATIENT VISIT DATE December 19, 2023 OUTPATIENT VISIT TYPE NEW PRIMARY CARE PHYSICIAN: Giovani Hagen MD [address] [place] [address] CHIEF COMPLAINT: Syncope, cardiac evaluation for family [...] had any workup done including Stress Echo, gambling monitor or 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 Reports symptoms of [...] No-Excessive Sweating, No-Frequent Urination, No-Frequent Thirst Analia Noé, RN PHYSICAL EXAMINATION: BP 127/91 Pulse 94 [...] No per (more content not included)... Normal [facility] ECG COMPLETEon 12-19-2023 ECG COMPLETE Ventricular Rate : 8 8 BPM Atrial Rate : 88 BPM P-R Interval : 148 ms QRS Duration : 78 ms Q-T Interval : 380 ms QTC Calculation(Bazett) : 459 ms Calculated P [place] : 62 degrees Calculated R [place] : 55 degrees Calculated T [place] : 38 degrees NORMAL SINUS RHYTHM NORMAL ECG Confirmed by MD BAH HEBA ([id number]) on 12/30/2023 6:45:12 PM NAME : BELGICA HARPER PID : [id number] : 1990 Gender : Female Race : Other ORD : [id number] Procedure Date : Dec 19 2023 13:51:58 Edit Date : Dec 30 2023 18:45:15 Diagnosis: NORMAL SINUS RHYTHM NORMAL ECG Confirmed by MD BAH HEBA ([id number]) on 12/30/2023 6:45:12 PM Test Reason : Location : 314 : J14 J1-4 Overread By : MD BAH HEBA Edited By : MD BHA HEBA Referred By : , Acquired by : CHELSEY JOSEPH [facility] [place] 11-02-2023 CNPN Telephone (CARDMN) MEREDITHBELGICA ([id number]) 1990 F Date Time Provider Department 11/02/23 SOLO MORA During your visit today, we recorded the following information about you: Criss Mccrary 11/02/2023 10:50 AM Signed Records are in Care Everywhere: EP Referral- 11/01/23 (Dr. Shilo Dillon/Cardiology) [place] Allergies As of Date: 11/02/2023 Noted Allergy [...] Status:Closed by CRISS MCCRARY on 11/02/23 Normal [facility] Extra Lavender Tubeon 2022 Extra Lavender Tube Normal [facility] Comment on above: Performed By: #### X LAV, LIVP, LIP #### [facility] Lab [address] [place] [address] Coiled Tubing Operator: Ronald Pearce MD Lipaseon 03-24-2023 Lipase [Catalytic activity/Vol] 260 U/L High 13-60 [facility] Comment on above: Performed By: #### X LAV, LIVP, LIP #### [facility] Lab [address] [place] [address] Coiled Tubing Operator: Ronald Pearce MD Liver Profileon 03-24-2023 Albumin [Mass/Vol] 3.5 g/dL Normal 3.5-5.2 [facility] Comment on above: Performed By: #### X LAV, LIVP, LIP ####[facility] [address] [place] [address] Lab Director: Ronald Pearce MD Alkaline Phos 321 U/L High 35-104 [facility] Comment on above: Performed By: #### X LAV, LIVP, LIP ####[facility] [address] [place] [address] Lab Director: Ronald Pearce MD ALT [Catalytic activity/Vol] 137 U/L High 5-33 [facility] Comment on above: Performed By: #### X LAV, LIVP, LIP ####[facility] [address] [place] [phone] Director: Ronald Pearce MD AST [Catalytic activity/Vol] 60 U/L High <32 [facility] Comment on above: Performed By: #### X LAV, LIVP, LIP ####[facility] [address] [place] [address] Lab Director: Ronald Pearce MD Bilirubin [Mass/Vol] 1.0 mg/dL Normal 0.3-1.2 [facility] Comment on above: Performed By: #### X LAV, LIVP, LIP ####[facility] [address] [place] [address] Lab Director: Ronald Pearce MD Bilirubin, Indirect 0.4 mg/dL Normal 0.0-1.0 [facility] Comment on above: Performed By: #### X LAV, LIVP, LIP ####[facility] [address] [place] [address] Lab Director: Ronald Pearce MD Bilirubin.indirect [Mass/Vol] 0.6 mg/dL High <0.3 [facility] Comment on above: Performed By: #### X LAV, LIVP, LIP ####[facility] [address] [place] [address].[place] [address] Lab Director: Ronald Pearce MD Protein [Mass/Vol] 5.7 g/dL Low 6.4-8.3 [facility] Comment on above: Performed By: #### X LAV, LIVP, LIP ####[facility] [address] [facility] [place] [address] Lab Director: Ronald Pearce MD Extra Lavender Tubeon 2022 Extra Lavender Tube Normal [facility] Comment on above: Performed By: #### L IVP, XLAV ####[facility] [address] [place] [address] lab Director: Ronald Pearce MD FL CHOLANGIOGRAM [...] Danny Cole MD 03/23/23 Final result Normal [facility] Liver Profileon 03-23-2023 Albumin [Mass/Vol] 3.5 g/dL Normal 3.5-5.2 [facility] Comment on above: Performed By: #### L IVP, XLAV ####[facility] [address] [place] [address] lab Director: Ronald Pearce MD Alkaline Phos 293 U/L High 35-104 [facility] Comment on above: Performed By: #### L IVP, XLAV ####[facility] [address] [facility] [place] [address] lab Director: Ronald Pearce MD ALT [Catalytic activity/Vol] 111 U/L High 5-33 [facility] Comment on above: Performed By: #### L IVP, XLAV ####[facility] [address] [facility] [place] [address] lab Director: Ronald Pearce MD AST [Catalytic activity/Vol] 43 U/L High <32 [facility] Comment on above: Performed By: #### L IVP, XLAV ####[facility] [address], [place] [phone] Director: Ronald Pearce MD Bilirubin [Mass/Vol] 2.6 mg/dL High 0.3-1.2 [facility] Comment on above: Performed By: #### L IVP, XLAV ####[facility] [address] [place] [phone] Director: Ronald Pearce MD Bilirubin, Indirect 0.8 mg/dL Normal 0.0-1.0 [facility] Comment on above: Performed By: #### L IVP, XLAV ####[facility] [address], [place] [phone] Director: Ronald Pearce MD Bilirubin.indirect [Mass/Vol] 1.8 mg/dL High <0.3 [facility] Comment on above: Performed By: #### L IVP, XLAV ####[facility] [address] [place] [address] Lab Director: Ronald Pearce MD Protein [Mass/Vol] 5.7 g/dL Low 6.4-8.3 [facility] Comment on above: Performed By: #### L IVP, XLAV ####[facility] [address] [place] [address] Lab Director: Ronald Pearce MD Surgical Pathology Reporton 03-23-2023 Surgical Pathology Report (NOTE) Path Number: [id number] -- Diagnosis -- A. GALLBLADDER AND CONTENTS, CHOLECYSTECTOMY: Cholelithiasis. Lulú Jaevd M.D. Electronically Signed Out kmg203/27/2023 Clinical Information [...] lesions or periductal lymph nodes are identified. [employer] sections 1c. tm SM/tb1:03/24/2023 Microscopic Description Microscopic examination performed. Processing Lab: [address] [address] Interpretation Performed at [address] [phone] SURGICAL PATHOLOGY CONSULTATION Patient Name: BELGICA HARPER [facility] Rec: [id number] [facility] ANATOMIC PATHOLOGY [address] [place] [phone] Normal [facility] CBC with Diffon 03-22-2023 Abs. Basophil <0.03 Normal 0.00-0.20 [facility] Comment on above: Performed By: #### C DP, LIP, CMPX #### [facility] Lab [address] [place] [address] Coiled Tubing Operator: Ronald Pearce MD #### TRIG #### [facility] Diagnostic [employer] [facility] [place] [address] Coiled Tubing Operator: Elio Marley MD Abs.Imm.Granulocyte 0.03 k/uL Normal 0.00-0.30 [facility] Comment on above: Performed By: #### C DP, LIP, CMPX #### [facility] Lab [address] [place] [address] Coiled Tubing Operator: Ronald Pearce MD #### TRIG #### [address] [address] Coiled Tubing Operator: Elio Marley MD Abs.Neutrophil (Seg) 6.89 k/uL Normal 1.50-8.10 [facility] Comment on above: Performed By: #### C DP, LIP, CMPX #### [facility] Lab [address] [place] [address] Coiled Tubing Operator: Ronald Pearce MD #### TRIG #### [address] [address] Coiled Tubing Operator: Elio Marley MD Basophils/100 WBC (Bld) 0 % Normal 0-2 [facility] Comment on above: Performed By: #### C DP, LIP, CMPX #### [facility] Lab [address] [place] [address] Coiled Tubing Operator: Ronald Pearce MD #### TRIG #### [address] [address] Coiled Tubing Operator: Elio Marley MD Eosinophils (Bld) [#/Vol] 0.07 10*3/uL Normal 0.00-0.44 [facility] Comment on above: Performed By: #### C DP, LIP, CMPX #### [facility] Lab [address] [place] [address] Coiled Tubing Operator: Ronald Pearce MD #### TRIG #### [address] [address] Coiled Tubing Operator: Elio Marley MD Eosinophils/100 WBC (Bld) 1 % Normal 1-4 [facility] Comment on above: Performed By: #### C DP, LIP, CMPX #### [facility] Lab [address] [place] [address] Coiled Tubing Operator: Ronald Pearce MD #### TRIG #### [address] [address] Coiled Tubing Operator: Elio Marley MD Erythrocyte distribution width (RBC) [Ratio] 12.2 % Normal 11.8-14.4 [facility] Comment on above: Performed By: #### C DP, LIP, CMPX #### [facility] Lab [address] [place] [address] Coiled Tubing Operator: Ronald Pearce MD #### TRIG #### [address] [address] Coiled Tubing Operator: Elio Marley MD Hematocrit (Bld) [Volume fraction] 36.9 % Normal 36.3-47.1 [facility] Comment on above: Performed By: #### C DP, LIP, CMPX #### [facility] Lab [address] [place] [address] Coiled Tubing Operator: Ronald Pearce MD #### TRIG #### [address] [address] Coiled Tubing Operator: Elio Marley MD Hemoglobin (Bld) [Mass/Vol] 12.1 g/dL Normal 11.9-15.1 [facility] Comment on above: Performed By: #### C DP, LIP, CMPX #### [facility] Lab [address] [place] [address] Coiled Tubing Operator: Ronald Pearce MD #### TRIG #### [address] [address] Coiled Tubing Operator: Elio Marley MD Immature granulocytes/100 WBC (Bld) 0 % Normal 0 [facility] Comment on above: Performed By: #### C DP, LIP, CMPX #### [facility] Lab [address] [place] [address] Coiled Tubing Operator: Ronald Pearce MD #### TRIG #### [address] [address] Coiled Tubing Operator: Elio Marley MD Lymphocytes (Bld) [#/Vol] 1.62 10*3/uL Normal 1.10-3.70 [facility] Comment on above: Performed By: #### C DP, LIP, CMPX #### [facility] Lab [address] [place] [address] Coiled Tubing Operator: Ronald Pearce MD #### TRIG #### [address] [address] Coiled Tubing Operator: Elio Marley MD Lymphocytes/100 WBC (Bld) 18 % Low 24-43 [facility] Comment on above: Performed By: #### C DP, LIP, CMPX #### [facility] Lab [address] [place] [address] Coiled Tubing Operator: Ronald Pearce MD #### TRIG #### [address] [address] Coiled Tubing Operator: Elio Marley MD MCH (RBC) [Entitic mass] 32.5 pg Normal 25.2-33.5 [facility] Comment on above: Performed By: #### C DP, LIP, CMPX #### [facility] Lab [address] [place] [address] Coiled Tubing Operator: Ronald Pearce MD #### TRIG #### [address] [address] Coiled Tubing Operator: Elio Marley MD MCHC (RBC) [Mass/Vol] 32.8 g/dL Normal 28.4-34.8 [facility] Comment on above: Performed By: #### C DP, LIP, CMPX #### [facility] Lab [address] [place] [address] Coiled Tubing Operator: Ronald Pearce MD #### TRIG #### [address] [address] Coiled Tubing Operator: Elio Marley MD MCV (RBC) [Entitic vol] 99.2 fL Normal 82.6-102.9 [facility] Comment on above: Performed By: #### C DP, LIP, CMPX #### [facility] Lab [facility] [place] [address] Coiled Tubing Operator: Ronald Pearce MD #### TRIG #### [address] [address] Coiled Tubing Operator: Elio Marley MD Monocytes (Bld) [#/Vol] 0.57 10*3/uL Normal 0.10-1.20 [facility] Comment on above: Performed By: #### C DP, LIP, CMPX #### [facility] Lab [address] [place] [address] Coiled Tubing Operator: Ronald Pearce MD #### TRIG #### [address] [address] Coiled Tubing Operator: Elio Marley MD Monocytes/100 WBC (Bld) 6 % Normal 3-12 [facility] Comment on above: Performed By: #### C DP, LIP, CMPX #### [facility] Lab [address] [place] [address] Coiled Tubing Operator: Ronald Pearce MD #### TRIG #### [address] [address] Coiled Tubing Operator: Elio Marley MD Neutrophil (Seg) 75 % High 36-65 [facility] Comment on above: Performed By: #### C DP, LIP, CMPX #### [facility] Lab [address] [place] [address] Coiled Tubing Operator: Ronald Pearce MD #### TRIG #### [address] [address] Coiled Tubing Operator: Elio Marley MD NRBC Automated 0.0 per 100 WBC Normal 0.0 [facility] Comment on above: Performed By: #### C DP, LIP, CMPX #### [facility] Lab [address] [place] [address] Coiled Tubing Operator: Ronald Pearce MD #### TRIG #### [address] [address] Coiled Tubing Operator: Elio Marley MD Platelet mean volume (Bld) [Entitic vol] 10.7 fL Normal 8.1-13.5 [facility] Comment on above: Performed By: #### C DP, LIP, CMPX #### [facility] Lab [address] [place] [address] Coiled Tubing Operator: Ronald Pearce MD #### TRIG #### [address] [address] Coiled Tubing Operator: Elio Marley MD Platelets (Bld) [#/Vol] 188 10*3/uL Normal 138-453 [facility] Comment on above: Performed By: #### C DP, LIP, CMPX #### [facility] [address] [place] [address] Coiled Tubing Operator: Ronald Pearce MD #### TRIG #### [address] [address] Coiled Tubing Operator: Elio Marley MD RBC (Bld) [#/Vol] 3.72 10*6/uL Low 3.95-5.11 [facility] Comment on above: Performed By: #### C DP, LIP, CMPX #### [facility] [address] [place] [address] Coiled Tubing Operator: Ronald Pearce MD #### TRIG #### [address] [address] Coiled Tubing Operator: Elio Marley MD WBC (Bld) [#/Vol] 9.2 10*3/uL Normal 3.5-11.3 [facility] Comment on above: Performed By: #### C DP, LIP, CMPX #### [facility] [address] [place] [address] Coiled Tubing Operator: Ronald Pearce MD #### TRIG #### [address] [address] Coiled Tubing Operator: Elio Marley MD Comp Metabolic Pr/rfx MGon 1 05-22-2022 Albumin [Mass/Vol] 3.5 g/dL Normal 3.5-5.2 [facility] Comment on above: Performed By: #### C DP, LIP, CMPX #### [facility] [address] [place] [address] Coiled Tubing Operator: Ronald Pearce MD #### TRIG #### [address] [address] Coiled Tubing Operator: Elio Marley MD Alkaline Phos 157 U/L High 35-104 [facility] Comment on above: Performed By: #### C DP, LIP, CMPX #### [facility] [address] [place] [address] Coiled Tubing Operator: Ronald Pearce MD #### TRIG #### [address] [address] Coiled Tubing Operator: Elio Marley MD ALT [Catalytic activity/Vol] 131 U/L High 5-33 [facility] Comment on above: Performed By: #### C DP, LIP, CMPX #### [facility] [address] [place] [address] Coiled Tubing Operator: Ronald Pearce MD #### TRIG #### [address] [address] Coiled Tubing Operator: Elio Marley MD Anion gap [Moles/Vol] 11 mmol/L Normal 9-17 [facility] Comment on above: Performed By: #### C DP, LIP, CMPX #### [facility] [address] [place] [address] Coiled Tubing Operator: Ronald Pearce MD #### TRIG #### [address] [address] Coiled Tubing Operator: Elio Marley MD AST [Catalytic activity/Vol] 34 U/L High <32 [facility] Comment on above: Performed By: #### C DP, LIP, CMPX #### [facility] [address] [place] [address] Coiled Tubing Operator: Ronald Pearce MD #### TRIG #### [address] [address] Coiled Tubing Operator: Elio Marley MD Bilirubin [Mass/Vol] 1.9 mg/dL High 0.3-1.2 [facility] Comment on above: Performed By: #### C DP, LIP, CMPX #### [facility] [address] [place] [address] Coiled Tubing Operator: Ronald Pearce MD #### TRIG #### [address] [address] Coiled Tubing Operator: Elio Marley MD BUN/CRE Ratio 17 Normal 9-20 [facility] Comment on above: Performed By: #### C DP, LIP, CMPX #### [facility] [address] [place] [address] Coiled Tubing Operator: Ronald Pearce MD #### TRIG #### [address] [address] Coiled Tubing Operator: Elio Marley MD Calcium [Mass/Vol] 8.1 mg/dL Low 8.6-10.4 [facility] Comment on above: Performed By: #### C DP, LIP, CMPX #### [facility] [address] [place] [address] Coiled Tubing Operator: Ronald Pearce MD #### TRIG #### [address] [address] Coiled Tubing Operator: Elio Marley MD Chloride [Moles/Vol] 105 mmol/L Normal 98-107 [facility] Comment on above: Performed By: #### C DP, LIP, CMPX #### [facility] [address] [place] [address] Coiled Tubing Operator: Ronald Pearce MD #### TRIG #### [address] [address] Coiled Tubing Operator: Elio Marley MD CO2 [Moles/Vol] 21 mmol/L Normal 20-31 [facility] Comment on above: Performed By: #### C DP, LIP, CMPX #### [facility] [address] [place] [address] Coiled Tubing Operator: Ronald Pearce MD #### TRIG #### [address] [address] Coiled Tubing Operator: Elio Marley MD Creatinine [Mass/Vol] 0.6 mg/dL Normal 0.5-0.9 [facility] Comment on above: Performed By: #### C ANIL GREWAL, CMPX #### [facility] [address] [place] [address] Coiled Tubing Operator: Ronald Pearce MD #### TRIG #### [address] [address] Coiled Tubing Operator: Elio Marley MD GFR/1.73 sq M.predicted among non-blacks MDRD (S/P/Bld) [Vol rate/Area] mL/min/{1.73_m2} Normal >60 [facility] Comment on above: Result Comment: These [...] By: #### C ANIL GREWAL, CMPX #### [facility] [address] [place] [address] Coiled Tubing Operator: Ronald Pearce MD #### TRIG #### [address] [address] Coiled Tubing Operator: Elio Marley MD Glucose [Mass/Vol] 75 mg/dL Normal 70-99 [facility] Comment on above: Performed By: #### C ANIL GREWAL, CMPX #### [facility] [address] [place] [address] Coiled Tubing Operator: Ronald Pearce MD #### TRIG #### [address] [address] Coiled Tubing Operator: Elio Marley MD Potassium [Moles/Vol] 4.0 mmol/L Normal 3.7-5.3 [facility] Comment on above: Performed By: #### C DP, LIP, CMPX #### [facility] [address] [place] [address] Coiled Tubing Operator: Ronald Pearce MD #### TRIG #### [address] [address] Coiled Tubing Operator: Elio Marley MD Protein [Mass/Vol] 5.7 g/dL Low 6.4-8.3 [facility] Comment on above: Performed By: #### C DP, LIP, CMPX #### [facility] [address] [place] [address] Coiled Tubing Operator: Ronald Pearce MD #### TRIG #### [address] [address] Coiled Tubing Operator: Elio Marley MD Sodium [Moles/Vol] 137 mmol/L Normal 135-144 [facility] Comment on above: Performed By: #### C DP, LIP, CMPX #### [facility] [address] [place] [address] Coiled Tubing Operator: Ronald Pearce MD #### TRIG #### [address] [address] Coiled Tubing Operator: Elio Marley MD Urea nitrogen [Mass/Vol] 10 mg/dL Normal 6-20 [facility] Comment on above: Performed By: #### C DP, LIP, CMPX #### [facility] [address] [place] [address] Coiled Tubing Operator: Ronald Pearce MD #### TRIG #### [address] [address] Coiled Tubing Operator: Elio Marley MD K (Potassium)on 03-22-2023 Potassium [Moles/Vol] 3.8 mmol/L Normal 3.7-5.3 [facility] Comment on above: Performed By: #### K #### [facility] [address] [place] [address] Coiled Tubing Operator: Ronald Pearce MD Lipaseon 03-22-2023 Lipase [Catalytic activity/Vol] 198 U/L High 13-60 [facility] Comment on above: Performed By: #### C DP, LIP, CMPX #### [facility] [address] [place] [address] Coiled Tubing Operator: Ronald Pearce MD #### TRIG #### [facility] [address] [place] [address] Coiled Tubing Operator: Elio Marley MD MRI ABDOMEN WO CONTRAST [...] Daniel Hooker MD 03/22/23 Final result Normal [facility] Triglycerideson 03-22-2023 Triglyceride [Mass/Vol] 102 mg/dL Normal 0-149 [facility] Comment on above: Result Comment: Triglyceride Guidelines: <150 Desirable 150-199 Borderline 200-499 High >499 Very high Based on AHA Guidelines for fasting triglyceride, January 2012. Performed By: #### C DP, LIP, CMPX #### [facility] [address] [place] [place], [place] [address] Coiled Tubing Operator: Ronald Pearce MD #### TRIG #### [facility] [address] [place], [place] [phone] Coiled Tubing Operator: Elio Marley [facility] Telephone (FVPRAD) BELGICA HARPER ([id number]) 1990 F Date Time Provider Department 03/20/23 [...] Status:Closed by LAWRENCE CAMPUZANO on 03/20/23 Normal [facility] DENY Antinuclear Antibodieson 10-26-2022 Antinuclear Abs, IFA Negative Normal . [facility] Comment on above: Order Comment: Reaso n for Exam Elevated liver enzymes Result Comment: Nega tive <1:80 Borderline 1:80 Positive >1:80 ICAP nomenclature: AC-0 For more information about Hep-2 cell patterns use ANApatterns.org, the official website for the International Consensus on Antinuclear Antibody (DENY) Patterns (ICAP). Performed at: [facility] [id number] Coiled Tubing Operator: Demarcus Moreno PhD, Phone: [phone] Performed By: #### A NA, HEMOCHROM, IGG, MITOM2, ALPHA PHEN, HAABT, SMAB, CERULOP, L-K MICRO #### [facility] , #### CONSTANTINO #### [address] Ltbtn-1-Xgsglyihesk Phenotyp kwasi 10-26-2022 Alpha 1 Anti-Trypsin 121 mg/dL Normal 100-188 [facility] Comment on above: Order Comment: Reaso n for Exam Elevated liver enzymes Performed By: #### A NA, HEMOCHROM, IGG, MITOM2, ALPHA PHEN, HAABT, SMAB, CERULOP, L-K MICRO #### [facility] , #### CONST[place]INO #### [facility] [address] [place] [address] Phenotype (P1) MM Normal . [facility] Comment on above: Order Comment: Reaso n [...] Ranges used to confirm phenotype. Performed at: [address] [id number] Coiled Tubing Operator: Demarcus Moreno PhD, Phone: [phone] Performed at: [address] [id number] Coiled Tubing Operator: Yuli Callejas MD, Phone: [phone] Performed By: #### A NA, HEMOCHROM, IGG, MITOM2, ALPHA PHEN, HAABT, SMAB, CERULOP, L-K MICRO #### [facility] , #### CONST[place]INO #### [address] Ceruloplasminon 10-26-2022 Ceruloplasmin 27.2 mg/dL Normal 19.0-39.0 [facility] Comment on above: Order Comment: Reaso n for Exam Elevated liver enzymes Result Comment: Perf ormed at: [address] [id number] Coiled Tubing Operator: Demarcus Moreno PhD, Phone: [phone] PERFORMED BY: [place] [address] PATHOLOGIST [employer] INTEGRATION ENGINEER ILIANA CAMP M.D. Performed By: #### A NA, HEMOCHROM, IGG, MITOM2, ALPHA PHEN, HAABT, SMAB, CERULOP, L-K MICRO #### [facility] , #### [place]ST[place]INO #### [address] Ferritinon 10-26-2022 Ferritin [Mass/Vol] 106.5 ng/mL Normal 11.0-306.8 [facility] Comment on above: Order Comment: pt is fasting Reason for Exam Elevated liver enzymes Result Comment: PERF ORMED BY: [place] [address] PATHOLOGIST [employer] INTEGRATION ENGINEER ILIANA CAMP M.D. Performed By: #### A NA, HEMOCHROM, IGG, MITOM2, ALPHA PHEN, HAABT, SMAB, CERULOP, L-K MICRO #### [facility] , #### CONSTANTINO #### [facility] [address] [place] [address] Ferritin [Mass/volume] in Se rum or PlasmaOrdered By: Erwin Hylton on 10-26-2022 Ferritin [Mass/Vol] 106.5 ng/mL 11.0-306.8 [facility] Hepatitis A Antibody Totalon 10-26-2022 Hepatitis A Antibody Total Negative Normal Negative [facility] Comment on above: Order Comment: Reaso n for Exam Elevated liver enzymes Result Comment: Perf ormed at: - [facility] [address] [id number] Coiled Tubing Operator: Demarcus Moreno PhD, Phone: [phone] PERFORMED BY: [place] [address] PATHOLOGIST [employer] INTEGRATION ENGINEER ILIANA CAMP M.D. Performed By: #### A NA, HEMOCHROM, IGG, MITOM2, ALPHA PHEN, HAABT, SMAB, CERULOP, L-K MICRO #### [facility] , #### CONSTANTINO #### [facility] [address] [place] [address] Hereditary Hemochromatosis,D NAon 10-26-2022 Hereditary Hemochromatosis Normal . [facility] Comment on above: Order Comment: Reaso n for Exam Elevated liver enzymes Result Comment: Resu lt: c.845G>A (p.Xex709Ehs) - Not Detected c.187C>G (p.Viu28Wma) - Not Detected c.193A>T (p.Pqk56Wqr) - Not Detected Not associated with increased [...] for patients who are homozygous for c.845G>A (p.Eqz485Ntp) and have yet to experience clinical symptoms. Comments: The most common HFE variants associated with hereditary hemochromatosis are c.845G>A (p.Xxq698Dmk), c.187C>G (p.Qqo75Tgk), c.193A>T (p.Nnn71Heb). While patients homozygous for c.845G>A (p.Fae747Ltt) are the most likely to present clinical symptoms, less than 10% develop clinically significant iron overload with tissue and organ damage. Genetic counseling is recommended to discuss the potential clinical implications of positive results, as well as recommendations for testing family members. Genetic Coordinators are available for health care providers to discuss results at [phone] ([phone]). Test Details: Three variants analyzed: c.845G>A (p.Ljd437Gdl), commonly referred to as C282Y c.187C>G (p.Shl29Lnb), commonly referred to as H63D c.193A>T (p.Qck99Yda), commonly referred to as S65C Methods/Limitations: DNA [...] developed and its performance characteristics determined by [employer]. It has not been cleared or approved by the Food and Drug Administration. References: Brodie BR, Yoav PC, Deborah KV, Raymond LW, Ramsey ; [place] Association for the Study of Liver Diseases. Diagnosis and management of hemochromatosis: 2011 practice guideline by the [place] [employer] the [employer] of Liver Diseases. Hepatology. 2011 Oct;54(1):328-43. doi: 10.1002/hep.78789. PMID: 40659515; PMCID: CYL5117301. Cora G, Olegario P, Fabio MCDONALD, Tabatha H, Love O, Zev S, Vazquez I, Kofi M, Sunitha S. [facility] best practice guidelines for the molecular genetic diagnosis of hereditary hemochromatosis (HH). Eur J Hum Margaret. 2016 Jul;24(4):479-95. doi: 10.1038/ejhg.2015.128. Epub 2014Oct 29. PMID: 26137252; PMCID: UKX2052740. Performed By: #### A NA, HEMOCHROM, IGG, MITOM2, ALPHA PHEN, HAABT, SMAB, CERULOP, L-K MICRO #### [facility] , #### CONST[place]INO #### [address] Reviewed by: Dm Reyna, PhD Normal . [facility] Comment on above: Order Comment: Reaso n for Exam Elevated liver enzymes Result Comment: Perf ormed at: TG - [facility] [address] [place], [place] [id number] Coiled Tubing Operator: Vivian Kelley [facility], Phone: [phone] PERFORMED BY: [place] [address] PATHOLOGIST [employer] INTEGRATION ENGINEER ILIANA CAMP M.D. Performed By: #### A NA, HEMOCHROM, IGG, MITOM2, ALPHA PHEN, HAABT, SMAB, CERULOP, L-K MICRO #### [facility] , #### CONSTANTINO #### [facility] [address] [place] [address] Immunoglobulin Harvey 3 Immunoglobulin G 865 mg/dL Normal 586-1602 [facility] Comment on above: Order Comment: Reaso n for Exam Elevated liver enzymes Result Comment: Perf ormed at: CB - [facility] [address] [id number] Coiled Tubing Operator: Demarcus Moreno PhD, Phone: [phone] Performed By: #### A NA, HEMOCHROM, IGG, MITOM2, ALPHA PHEN, HAABT, SMAB, CERULOP, L-K MICRO #### [facility] , #### CONSTANTINO #### [place] [address] [place] Liver-Kidney Microsomal Abon 10-26-2022 Liver-Kidney Microsomal Ab <1.0 Normal 0.0-20.0 [facility] Comment on above: Order Comment: Reaso n [...] MICRO #### [facility] , #### CONSTANTINO #### [place] [address] [place] Mitochondrial (M2) Antibodyo n 10-26-2022 Mitochondrial (M2) Antibody <20.0 Normal 0.0-20.0 [facility] Comment on above: Order Comment: Reaso n for Exam Elevated liver enzymes Result Comment: Nega tive 0.0 - 20.0 Equivocal 20.1 - 24.9 Positive >24.9 Mitochondrial (M2) Antibodies are found in 90-96% of patients with primary biliary cirrhosis. Performed at: [facility] [id number] Coiled Tubing Operator: Demarcus Moreno PhD, Phone: [phone] Performed By: #### A NA, HEMOCHROM, IGG, MITOM2, ALPHA PHEN, HAABT, SMAB, CERULOP, L-K MICRO #### [facility] , #### [place] #### [place] [address] [place] Smooth Muscle Antibodyon Smooth Muscle Antibody 4 Normal 0-19 [facility] Comment on above: Order Comment: Reaso n [...] #### [facility] , #### [place]ST[place]INO #### [address] liveron 10-26-2022 liver [facility] [place] [address] [place] [address] Ultrasound Report Signed Patient: Belgica Harper MR#: [id number] : 1990 Acct:[id number] Age/Sex: 32 / F ADM Date: 10/26/22 Loc: Room: Type: [facility] Attending Dr: Erwin Hylton MD Ordering [...] Perdomo Jr., D.ORajesh10/26/2022 3:24 PM Dictation Location: [place] [address] Tech: Francia Lopez Transcribed By: GRANT 10/26/22 1524 Dictated By: Alexandro Perdomo Jr, DO 10/26/22 1523 Signed By: 10/26/22 1524 [facility] ACETYLCHOLINE REC BINDING AB on 10-17-2022 ACETYLCHOLINE BINDING, QUAL Negative Normal Negative [facility] Comment on above: Order Comment: Speci men Type: BLOOD SPECIMEN Ordering Facility: [facility] Address: [address] [place] [address] Result Comment: Anti -acetylcholine receptor binding antibody test is used as an aid in diagnosis of myasthenia gravis. A negative result cannot exclude myasthenia gravis. Clinical correlation is required. Performed By: #### 3 016-3, 2156-09 #### [facility] CLIA [id number] [address] [place] [address] [place] Acetylcholine receptor binding Ab (S) [Moles/Vol] <0.02 Normal <0.21 [facility] Comment on above: Order Comment: Dionicioi chetna Type: BLOOD SPECIMEN Ordering Facility: [facility] Address: [address] [place] [address] Performed By: #### 3 0163, 2156-09 #### [facility] CLIA [id number] [address] [place] [address] [place] AMINO ACIDS, PLASMA W/ CONSU LTATIONon 10-17-2022 Alanine [Moles/Vol] 310 umol/L Normal 177-583 [facility] Comment on above: Order Comment: Dionicioi chetna Type: BLOOD SPECIMEN Ordering Facility: [facility] Address: [address] [place] [address] Performed By: #### 3 0163, 2156-09 #### [facility] CLIA [id number] [id number] [place] [address] [place] Alloisoleucine [Moles/Vol] 2 umol/L Normal 0-2 [facility] Comment on above: Order Comment: Dionicioi chetna Type: BLOOD SPECIMEN Ordering Facility: [facility] Address: [address] [place] [address] Performed By: #### 3 016-3, 2156-09 #### [facility] CLIA [id number] [address] [place] [address] [place] Alpha aminoadipate [Moles/Vol] <1 Normal 0-6 [facility] Comment on above: Order Comment: Speci men Type: BLOOD SPECIMEN Ordering Facility: [facility] Address: [address] [place] [id number] Performed By: #### 3 016-3, 2156-09 #### [facility] CLIA [id number] [facility] [place] [address] [place] AMINO ACID CONSULTATION, PLASMA Normal [facility] Comment on above: Order Comment: Speci men Type: BLOOD SPECIMEN Ordering Facility: [facility] Address: [address] Result Comment: This plasma amino acid analysis shows no significant abnormalities. Reference intervals from Isacc E, Len MG, Humble FANTASMA, and Christopher DK: Biochemical Genetics: A Laboratory Manual, Copyright 1989 by [employer] Reference intervals not established for some amino acids. This test was developed and its performance characteristics determined by [facility] [place] ([facility]). It has not been cleared or approved by the FDA. -[facility] is regulated under CLIA as qualified to perform high complexity testing. This test is used for clinical purposes. It should not be regarded as investigational or for research. Performed By: #### 3 016-3, 2156-09 #### [facility] CLIA [id number] [facility] [place] [address] [place] AMINO ACIDS REVIEW, PLASMA Reviewed by Patrick Proctor MD, Ph.D ([id number]) Normal [facility] Comment on above: Order Comment: Speci men Type: BLOOD SPECIMEN Ordering Facility: [facility] Address: [address] [place] [address] Performed By: #### 3 016-3, 2156-09 #### [facility] CLIA [id number] [address] [facility] [place] [address] [place] Arginine [Moles/Vol] 77 umol/L Normal 15-128 [facility] Comment on above: Order Comment: Speci men Type: BLOOD SPECIMEN Ordering Facility: [facility] Address: [address] Performed By: #### 3 016-3, 2156-09 #### [facility] CLIA [id number] [address] [place] [address] [place] Asparagine [Moles/Vol] 44 umol/L Normal 35-74 [facility] Comment on above: Order Comment: Speci men Type: BLOOD SPECIMEN Ordering Facility: [facility] Address: [address] [place] [address] Performed By: #### 3 016-3, 1987-08, 2156-09 #### [facility] CLIA [id number] [address] [place] [address] [place] Aspartate [Moles/Vol] 2 umol/L Normal 1-25 [facility] Comment on above: Order Comment: Speci men Type: BLOOD SPECIMEN Ordering Facility: [facility] Address: [address] [place] [address] Performed By: #### 3 016-3, 2156-09 #### [facility] CLIA [id number] [address] [place] [address] [place] Citrulline [Moles/Vol] 25 umol/L Normal 12-55 [facility] Comment on above: Order Comment: Speci men Type: BLOOD SPECIMEN Ordering Facility: [facility] Address: [address] Performed By: #### 3 016-3, 1987-08, 2156-09 #### [facility] CLIA [id number] [address] [place] [address] [place] Cystine [Moles/Vol] 33 umol/L Normal 5-82 [facility] Comment on above: Order Comment: Speci men Type: BLOOD SPECIMEN Ordering Facility: [facility] Address: [address] Performed By: #### 3 016-3, 2156-09 #### [facility] CLIA [id number] [address] [place] [address] [place] Glutamate [Moles/Vol] 31 umol/L Normal 10-131 [facility] Comment on above: Order Comment: Speci men Type: BLOOD SPECIMEN Ordering Facility: [facility] Address: [address] [place] [address] Performed By: #### 3 016-3, 1987-08, 2156-09 #### [facility] CLIA [id number] [address] [place] [address] [place] Glutamine [Moles/Vol] 652 umol/L Normal 205-756 [facility] Comment on above: Order Comment: Speci men Type: BLOOD SPECIMEN Ordering Facility: [facility] Address: [address] [place] [address] Performed By: #### 3 016-3, 1987-08, 2156-09 #### [facility] [place] [id number] [address] [place] [address] [place] Glycine [Moles/Vol] 351 umol/L Normal 151-490 [facility] Comment on above: Order Comment: Speci men Type: BLOOD SPECIMEN Ordering Facility: [facility] Address: [address] [place] [address] Performed By: #### 3 016-3, 1987-08, 2156-09 #### [facility] [place] [id number] [address] [place] [address] [place] Histidine [Moles/Vol] 82 umol/L Normal 72-124 [facility] Comment on above: Order Comment: Speci men Type: BLOOD SPECIMEN Ordering Facility: [facility] Address: [address] [place] [address] Performed By: #### 3 016-3, 1987-08, 2156-09 #### [facility] CLIA [id number] [address] [place] [address] [place] Hydroxylysine [Moles/Vol] <1 High <=0 [facility] Comment on above: Order Comment: Speci men Type: BLOOD SPECIMEN Ordering Facility: [facility] Address: [address] Performed By: #### 3 016-3, 2156-09 #### [facility] CLIA [id number] [address] [place] [address] [place] Hydroxyproline [Moles/Vol] 9 umol/L Normal 0-53 [facility] Comment on above: Order Comment: Speci men Type: BLOOD SPECIMEN Ordering Facility: [facility] Address: [address] Performed By: #### 3 016-3, 2156-09 #### [facility] CLIA [id number] [address] [place] [address] [place] Isoleucine [Moles/Vol] 66 umol/L Normal 30-108 [facility] Comment on above: Order Comment: Speci men Type: BLOOD SPECIMEN Ordering Facility: [facility] Address: [address] Performed By: #### 3 016-3, 2156-09 #### [facility] CLIA [id number] [address] [place] [address] [place] Leucine [Moles/Vol] 109 umol/L Normal 72-201 [facility] Comment on above: Order Comment: Speci men Type: BLOOD SPECIMEN Ordering Facility: [facility] Address: [address] Performed By: #### 3 016-3, 2156-09 #### [facility] CLIA [id number] [address] [facility] [place] [address] [place] Lysine [Moles/Vol] 220 umol/L Normal 116-296 [facility] Comment on above: Order Comment: Speci men Type: BLOOD SPECIMEN Ordering Facility: [facility] Address: [address] Performed By: #### 3 016-3, 2156-09 #### [facility] CLIA [id number] [address] [place] [address] [place] Methionine [Moles/Vol] 20 umol/L Normal 10-42 [facility] Comment on above: Order Comment: Speci men Type: BLOOD SPECIMEN Ordering Facility: [facility] Address: [address] [place] [address] Performed By: #### 3 016-3, 1987-08, 2156-09 #### [facility] CLIA [id number] [address] [place] [address] [place] Ornithine [Moles/Vol] 64 umol/L Normal 48-195 [facility] Comment on above: Order Comment: Speci men Type: BLOOD SPECIMEN Ordering Facility: [facility] Address: [address] [place] [address] Performed By: #### 3 016-3, 1987-08, 2156-09 #### [facility] CLIA [id number] [address] [place] [address] [place] Phenylalanine [Moles/Vol] 42 umol/L Normal 35-85 [facility] Comment on above: Order Comment: Speci men Type: BLOOD SPECIMEN Ordering Facility: [facility] Address: [address] [place] [address] Performed By: #### 3 016-3, 1987-08, 2156-09 #### [facility] CLIA [id number] [address] [place] [address] [place] Proline [Moles/Vol] 187 umol/L Normal 97-329 [facility] Comment on above: Order Comment: Speci men Type: BLOOD SPECIMEN Ordering Facility: [facility] Address: [address] [place] [address] Performed By: #### 3 016-3, 2156-09 #### [facility] CLIA [id number] [address] [place] [address] [place] Sarcosine [Moles/Vol] <1 High <=0 [facility] Comment on above: Order Comment: Speci men Type: BLOOD SPECIMEN Ordering Facility: [facility] Address: [address] [place] [id number] Performed By: #### 3 016-3, 1987-08, 2156-09 #### [facility] IA [id number] [address] [place] [address] [place] Serine [Moles/Vol] 107 umol/L Normal 58-181 [facility] Comment on above: Order Comment: Speci men Type: BLOOD SPECIMEN Ordering Facility: [facility] Address: [address] Performed By: #### 3 016-3, 2156-09 #### [facility] IA [id number] [address] [place] [address] [place] Taurine [Moles/Vol] 46 umol/L Low 54-210 [facility] Comment on above: Order Comment: Speci men Type: BLOOD SPECIMEN Ordering Facility: [facility] Address: [address] [place] [address] Performed By: #### 3 016-3, 2156-09 #### [facility] IA [id number] [address] [place] [address] [place] Threonine [Moles/Vol] 147 umol/L Normal 60-225 [facility] Comment on above: Order Comment: Speci men Type: BLOOD SPECIMEN Ordering Facility: [facility] Address: [address] [place], [place] [address] Performed By: #### 3 016-3, 1987-08, 2156-09 #### [facility] IA [id number] [address] [place] [address] [place] Tyrosine [Moles/Vol] 51 umol/L Normal 34-112 [facility] Comment on above: Order Comment: Speci men Type: BLOOD SPECIMEN Ordering Facility: [facility] Address: [address] Performed By: #### 3 016-3, 2156-09 #### [facility] IA [id number] [address] [place] [address] [place] Valine [Moles/Vol] 199 umol/L Normal 119-336 [facility] Comment on above: Order Comment: Rl basilio Type: BLOOD SPECIMEN Ordering Facility: [facility] Address: [address] [place] [address] Performed By: #### 3 016-3, 1987-, 2156-09 #### [facility] CLIA [id number] [facility] [place] [id number] [place] [facility] CARNITINE FREE/TOTAL, PLASMA on 10-17-2022 C0 [Moles/Vol] 27 umol/L Normal 22-54 [facility] Comment on above: Order Comment: Rl basilio Type: BLOOD SPECIMEN Ordering Facility: [facility] Address: [address] [place] [address] Performed By: #### C ARNPL #### [facility] CLIA [id number] [address] [facility] [id number] [place] [address] OF [facility] C0/Total carnitine [Molar fraction] 0.675 Low 0.700-0.900 [facility] Comment on above: Order Comment: Rl basilio Type: BLOOD SPECIMEN Ordering Facility: [facility] Address: [address] [place] [address] Result Comment: NOTE : The determination of [...] determined by the Pathology and Laboratory Medicine [place] at the [facility]. The U.S. Food and Drug Administration has not approved or cleared this test, however, FDA clearance or approval is not currently required for clinical use. Performed By: #### C ARNPL #### [facility] CLIA [id number] [address] [place] [address] [place] Carnitine [Moles/Vol] 40 umol/L Normal 27-68 [facility] Comment on above: Order Comment: Speci men Type: BLOOD SPECIMEN Ordering Facility: [facility] Address: [address] [place] [address] Performed By: #### C ARNPL #### [facility] CLIA [id number] [address] [place] [address] [place] CK SerPl-cCncon 10-17-2022 CK [Catalytic activity/Vol] 50 U/L Normal 42-196 [facility] Comment on above: Order Comment: Speci men Type: BLOOD SPECIMEN Ordering Facility: [facility] Address: [address] [place] [address] Performed By: #### 3 016-3, 2156-09 #### [facility] CLIA [id number] [address] [place] [address] [place] CRP SerPl-mCncon 10-17-2022 CRP [Mass/Vol] 0.6 mg/dL Normal <0.9 [facility] Comment on above: Order Comment: Speci men Type: BLOOD SPECIMEN Ordering Facility: [facility] Address: [address] Performed By: #### 3 016-3, 2156-09 #### [facility] CLIA [id number] [address] [place] [address] [place] CYTOKINE PANEL 13, SERUMon 0 10-17-2022 INTERFERON GAMMA <4.2 Normal <=4.2 [facility]il Comment on above: Order Comment: Speci men Type: BLOOD SPECIMEN Ordering Facility: [facility] Address: [address] Performed By: #### 3 016-3, 2156-09 #### [facility] CLIA [id number] [address] [place] [address] [place] INTERLEUKIN 1 BETA <6.5 Normal <=6.7 [facility] Comment on above: Order Comment: Speci men Type: BLOOD SPECIMEN Ordering Facility: [facility] Address: [address] [place] [address] Performed By: #### 3 016-3, 2156-09 #### [facility] CLIA [id number] [address] [place] [address] [place] INTERLEUKIN 10 3.2 pg/mL High <=2.8 [facility] Comment on above: Order Comment: Speci men Type: BLOOD SPECIMEN Ordering Facility: [facility] Address: [address] [place] [address] Performed By: #### 3 016-3, 1987-08, 2156-09 #### [facility] CLIA [id number] [address] [place] [address] [place] INTERLEUKIN 12 <1.9 Normal <=1.9 [facility] Comment on above: Order Comment: Speci men Type: BLOOD SPECIMEN Ordering Facility: [facility] Address: [address] [place] [address] Performed By: #### 3 0163, 2156-09 #### [facility] CLIA [id number] [address] [place] [address] [place] INTERLEUKIN 13 <1.7 Normal <=2.3 [facility] Comment on above: Order Comment: Speci men Type: BLOOD SPECIMEN Ordering Facility: [facility] Address: [address] [place] [address] Performed By: #### 3 016-3, 2156-09 #### [facility] CLIA [id number] [address] [place] [address] [place] [address] [place] INTERLEUKIN 17 <1.4 Normal <=1.4 [facility] Comment on above: Order Comment: Speci men Type: BLOOD SPECIMEN Ordering Facility: [facility] Address: [address] [place] [address] Performed By: #### 3 0163, 2156-09 #### [facility] CLIA [id number] [address] [place] [address] [place] INTERLEUKIN 2 <2.1 Normal <=2.1 [facility] Comment on above: Order Comment: Speci men Type: BLOOD SPECIMEN Ordering Facility: [facility] Address: [address] [place] [address] Performed By: #### 3 016, 2156-09 #### [facility] CLIA [id number] [address] [place] [address] [place] INTERLEUKIN 4 (INT4) <2.2 Normal <=2.2 [facility] Comment on above: Order Comment: Speci men Type: BLOOD SPECIMEN Ordering Facility: [facility] Address: [address] [place] [address] Performed By: #### 3 , 2156-09 #### [facility] CLIA [id number] [address] [place] [address] [place] INTERLEUKIN 5 <2.1 Normal <=2.1 [facility] Comment on above: Order Comment: Speci men Type: BLOOD SPECIMEN Ordering Facility: [facility] Address: [address] [place] [address] Performed By: #### 3 3, 2156-09 #### [facility] CLIA [id number] [facility] [place] [address] [place] INTERLEUKIN 6 <2.0 Normal <=2.0 [facility] Comment on above: Order Comment: Speci men Type: BLOOD SPECIMEN Ordering Facility: [facility] Address: [address] [place] [address] Performed By: #### 3 016-3, 2156-09 #### [facility] CLIA [id number] [address] [place] [address] [place] INTERLEUKIN 8 <3.0 Normal <=3.0 [facility] Comment on above: Order Comment: Speci men Type: BLOOD SPECIMEN Ordering Facility: [facility] Address: [address] [place], [place] [address] Performed By: #### 3 016-3, 2156-09 #### [facility] CLIA [id number] [address] [place] INTERLEUKIN-2 RECEPTOR 355.4 pg/mL Normal 175.3-858.2 [facility] Comment on above: Order Comment: Speci men Type: BLOOD SPECIMEN Ordering Facility: [facility] Address: [address] [place] [address] Performed By: #### 3 016, 2156-09 #### [facility] CLIA [id number] [address] TUMOR NECROSIS FACTOR - ALPHA 1.9 pg/mL Normal <=7.2 [facility] Comment on above: Order Comment: Speci chetna Type: BLOOD SPECIMEN Ordering Facility: [facility] Address: [address] [place] [address] Result Comment: INTE RPRETIVE INFORMATION: Cytokines Results are used to understand the pathophysiology of immune, infectious, or inflammatory disorders, or may be used for research purposes. This test was developed and its performance characteristics determined by [employer]. It has not been cleared or approved by the [place] Food and Drug Administration. This test was performed in a CLIA certified laboratory and is intended for clinical purposes. Performed By: [employer] [address] [place] [address] Motors Assembler: Terry Jacome MD, PhD Performed By: #### 3 016-3, 2156-09 #### [facility] CLIA [id number] [address] [place] [id number] [place] ESR Westergren method (Bld) [Velocity]on 10-17-2022 ESR (Bld) [Velocity] 5 mm/h Normal 0-20 [facility] Comment on above: Order Comment: Speci men Type: BLOOD SPECIMEN Ordering Facility: [facility] Address: [address] [place] [address] Performed By: #### 4 537-7 #### [facility] CLIA [id number] 9500 [facility] [id number] [address] [place] ESTROGEN FRACTION BLon 10-17 ESTRADIOL 238.7 pg/mL Normal [facility] Comment on above: Order Comment: Speci men Type: BLOOD SPECIMEN Ordering Facility: [facility] Address: [address] [place] [address] Result Comment: REFE RENCE INTERVAL: Estradiol by [employer] Car [employer] For a complete set of all established reference intervals, refer to [employer]/Tests/Pub/[id number]. This test was developed and its performance characteristics determined by [employer]. It has not been cleared or approved by the [place] Food and Drug Administration. This test was performed in a CLIA certified laboratory and is intended for clinical purposes. Performed By: #### 3 016-3, 1987-08, 2156-09 #### [facility] CLIA [id number] [address] [facility] [place] [address] [place] ESTROGENS TOTAL 354.8 pg/mL Normal [facility] Comment on above: Order Comment: Speci men Type: BLOOD SPECIMEN Ordering Facility: [facility] Address: [address] [place] [address] Result Comment: Refe rence interval of estrogens (pg/mL) Estrone Estradiol Total Estrogens Early follicular <150.0 30.0-100.0 30.0-250.0 Late follicular 100.0-250.0 100.0-400.0 200.0-650.0 Luteal <200.0 50.0-150.0 50.0-350.0 Post-menopausal 3.0-32.0 2.0-21.0 5.0-52.0 REFERENCE INTERVAL: Estrogens Total Calculation For a complete set of all established reference intervals, refer to [employer]/Tests/Pub/[id number]. Performed By: [employer] [address] [place] [address] Motors Assembler: Terry Jacome MD, PhD Performed By: #### 3 016-, 2156-09 #### [facility] CLIA [id number] [address] ESTRONE 116.1 pg/mL Normal [facility] Comment on above: Order Comment: Rl basilio Type: BLOOD SPECIMEN Ordering Facility: [facility] Address: [address] [place] [address] Result Comment: INTERPRETIVE INFORMATION: Estrone by Crew Car Driver For a complete set of all established reference intervals, refer to [employer]/Tests/Pub/[id number]. This test was developed and its performance characteristics determined by [employer]. It has not been cleared or approved by the [place] Food and Drug Administration. This test was performed in a CLIA certified laboratory and is intended for clinical purposes. Performed By: #### 3 016-, 2156-09 #### [facility] CLIA [id number] [address] [place] [address] [place] GAD65 Ab Ser-aCncon 10-18-19 Glutamate decarboxylase 65 Ab Qn (S) <5.0 Normal <=5.0 [facility] Comment on above: Order Comment: Rl basilio Type: BLOOD SPECIMEN Ordering Facility: [facility] Address: [address] [place] [address] Result Comment: Anti -glutamic acid decarboxylase antibody [...] 016-3, 2156-09 #### [facility] CLIA [id number] [address] [place] [id number] [place] Glutamate decarboxylase 65 A b Qn (S)on 10-17-2022 GLUTAMIC ACID DECARBOXYLAS AB QUALITATIVE Negative Normal Negative [facility] Comment on above: Order Comment: Rl basilio Type: BLOOD SPECIMEN Ordering Facility: [facility] Address: [address] [place] [id number] Performed By: #### 3 016-3, 2156-09 #### [facility] CLIA [id number] [address] [facility] [place] [address] [place] HbA1c (Bld)on 10-17-2022 Average glucose Estimated from glycated hemoglobin (Bld) [Mass/Vol] 88 mg/dL Normal [facility] Comment on above: Order Comment: Speci chetna Type: BLOOD SPECIMEN Ordering Facility: [facility] Address: [address] Result Comment: eAG: (Estimated average glucose) is a calculated value from HgbA1c and is auto claim representative of the average blood glucose level in the last 2-3 month period. Performed By: #### 3 3, 2156-09 #### [facility] CLIA [id number] [address] [place] [address] [place] HbA1c (Bld) [Mass fraction] 4.7 % Normal 4.3-5.6 [facility] Comment on above: Order Comment: Rl basilio Type: BLOOD SPECIMEN Ordering Facility: [facility] Address: [address] [place] [address] Result Comment: Amer [place] Diabetes Association guidelines indicate that patients with HgbA1c in the range 5.7-6.4% are at increased risk for development of diabetes, and intervention by lifestyle modification may be beneficial. HgbA1c greater or equal to 6.5% is considered diagnostic of diabetes. Performed By: #### 3 3, 2156-09 #### [facility] CLIA [id number] [address] [facility] [place] [address] [place] IgA SerPl-mCncon 10-17-2022 IgA [Mass/Vol] 169 mg/dL Normal 70-400 [facility] Comment on above: Order Comment: Rl basilio Type: BLOOD SPECIMEN Ordering Facility: [facility] Address: [address] [place] [id number] Performed By: #### 3 -, 2156-09 #### [facility] CLIA [id number] [address] [place] [address] [place] IgG SerPl-mCncon 10-17-2022 IgG [Mass/Vol] 932 mg/dL Normal 700-1600 [facility] Comment on above: Order Comment: Speci men Type: BLOOD SPECIMEN Ordering Facility: [facility] Address: [address] [place] [address] Performed By: #### 3 016-3, 2156-09 #### [facility] CLIA [id number] [address] [place] [address] [place] IgM SerPl-mCncon 10-17-2022 IgM [Mass/Vol] 199 mg/dL Normal 40-230 [facility] Comment on above: Order Comment: Speci men Type: BLOOD SPECIMEN Ordering Facility: [facility] Address: [address] [place] [address] Performed By: #### 3 016-3, 1987-08, 2156-09 #### [facility] IA [id number] [address] [place] LDH SerPl-cCncon 10-17-2022 LDH [Catalytic activity/Vol] 160 U/L Normal 135-214 [facility] Comment on above: Order Comment: Speci men Type: BLOOD SPECIMEN Ordering Facility: [facility] Address: [address] [place] [address] Performed By: #### 3 016-3, 2156-09 #### [facility] IA [id number] [address] [place] [address] [place] ORGANIC ACIDS UR, QUANT W/CO NSULTon 10-17-2022 2-Hydroxyglutarate/Cr eatinine (U) [Molar ratio] 3.6 umol/mmolCr Normal 0.6-17.7 [facility] Comment on above: Order Comment: Speci men Type: URINE SPECIMEN Ordering Facility: [facility] Address: [address] [place] [address] Performed By: #### L [id number] #### [facility] CLIA [id number] [address] [place] 2-Hydroxyisovalerate/ Creatinine (U) [Molar ratio] <0.1 Normal 0.0-0.1 [facility] Comment on above: Order Comment: Speci men Type: URINE SPECIMEN Ordering Facility: [facility] Address: [address] Performed By: #### L [id number] #### [facility] CLIA [id number] [address] [place] [address] [place] 6-Ihgewc-6-hydroxybut yrate (C5-OH)/Creatinine (U) [Molar ratio] <0.6 Normal 0.0-1.3 [facility] Comment on above: Order Comment: Speci men Type: URINE SPECIMEN Ordering Facility: [facility] Address: [address] Performed By: #### L [id number] #### [facility] CLIA [id number] [address] [place] [address] [place] 2-Methylbutyrylglycin e/Creatinine (U) [Molar ratio] 0.4 umol/mmolCr Normal 0.0-0.4 [facility] Comment on above: Order Comment: Speci men Type: URINE SPECIMEN Ordering Facility: [facility] Address: [address] [place] [address] Performed By: #### L [id number] #### [facility] CLIA [id number] [address] [place] [address] [place] 2-Methylcitrate/Creat inine (U) [Molar ratio] 1.8 umol/mmolCr Normal 1.0-13.9 [facility] Comment on above: Order Comment: Speci men Type: URINE SPECIMEN Ordering Facility: [facility] Address: [address] [place] [address] Performed By: #### L [id number] #### [facility] CLIA [id number] [address] [place] [address] [place] 2-Oxoadipate/Creatini ne (U) [Molar ratio] <1.6 Normal 0.0-3.3 [facility] Comment on above: Order Comment: Speci men Type: URINE SPECIMEN Ordering Facility: [facility] Address: [address] Performed By: #### L [id number] #### [facility] IA [id number] [address] [place] [address] [place] 3-Hydroxyglutarate/Cr eatinine (U) [Molar ratio] 0.0 umol/mmolCr Normal 0.0-0.7 [facility] Comment on above: Order Comment: Speci men Type: URINE SPECIMEN Ordering Facility: [facility] Address: [address] Performed By: #### L [id number] #### [facility] IA [id number] [address] [place] [address] [place] 3-Hydroxyisovalerate/ Creatinine (U) [Molar ratio] 5.0 umol/mmolCr Normal 2.1-27.3 [facility] Comment on above: Order Comment: Speci men Type: URINE SPECIMEN Ordering Facility: [facility] Address: [address] [place] [address] Performed By: #### L [id number] #### [facility] IA [id number] [address] [place] 3-Methylcrotonylglyci ne/Creatinine (U) [Molar ratio] <0.3 Normal <0.3 [facility] Comment on above: Order Comment: Speci men Type: URINE SPECIMEN Ordering Facility: [facility] Address: [address] [place] [address] Performed By: #### L [id number] #### [facility] CLIA [id number] [address] [place] 3-Methylglutaconate/C reatinine (U) [Molar ratio] 0.7 umol/mmolCr Normal 0.0-2.0 [facility] Comment on above: Order Comment: Speci men Type: URINE SPECIMEN Ordering Facility: [facility] Address: [address] [place] [address] Performed By: #### L [id number] #### [facility] CLIA [id number] [address] [place] [address] [place] 3-Methylglutarate/Cre atinine (U) [Molar ratio] 0.5 umol/mmolCr Normal 0.0-0.6 [facility] Comment on above: Order Comment: Speci men Type: URINE SPECIMEN Ordering Facility: [facility] Address: [address] [place], [place] [address] Performed By: #### L [id number] #### [facility] CLIA [id number] [address] [place] [address] [place] 4-Hydroxyphenylacetat e/Creatinine (U) [Molar ratio] 149.0 umol/mmolCr High 5.7-147.5 [facility] Comment on above: Order Comment: Speci men Type: URINE SPECIMEN Ordering Facility: [facility] Address: [address] [place] [address] Performed By: #### L [id number] #### [facility] CLIA [id number] [address] [place] [address] [place] 4-Hydroxyphenyllactat e/Creatinine (U) [Molar ratio] 4.3 umol/mmolCr Normal 1.3-23.0 [facility] Comment on above: Order Comment: Speci men Type: URINE SPECIMEN Ordering Facility: [facility] Address: [address] [place] [address] Performed By: #### L [id number] #### [facility] CLIA [id number] [address] [place], [place] [address] [place] 4-Hydroxyphenylpyruva te/Creatinine (U) [Molar ratio] 0.0 umol/mmolCr Normal <=0.0 [facility] Comment on above: Order Comment: Speci men Type: URINE SPECIMEN Ordering Facility: [facility] Address: [address] Performed By: #### L [id number] #### [facility] CLIA [id number] [address] [place] [address] [place] 5-Oxoproline/Creatini ne (U) [Molar ratio] 1.9 umol/mmolCr Normal 0.4-3.1 [facility] Comment on above: Order Comment: Speci men Type: URINE SPECIMEN Ordering Facility: [facility] Address: [address] [place], [place] [address] Performed By: #### L [id number] #### [facility] CLIA [id number] [address] [place] [address] [place] Acetoacetate/Creatini ne (U) [Molar ratio] <0.9 High 0.0-0.5 [facility] Comment on above: Order Comment: Speci men Type: URINE SPECIMEN Ordering Facility: [facility] Address: [address] [place], [place] [address] Performed By: #### L [id number] #### [facility] CLIA [id number] [address] [place] [address] [place] Aconitate/Creatinine (U) [Molar ratio] 14.8 umol/mmolCr Normal 8.5-109.6 [facility] Comment on above: Order Comment: Speci men Type: URINE SPECIMEN Ordering Facility: [facility] Address: [address] [place], [place] [address] Performed By: #### L [id number] #### [facility] CLIA [id number] [address] [place] [address] [place] Adipate/Creatinine (U) [Molar ratio] 3.0 umol/mmolCr Normal 0.3-9.2 [facility] Comment on above: Order Comment: Speci men Type: URINE SPECIMEN Ordering Facility: [facility] Address: [address] [place] [address] Performed By: #### L [id number] #### [facility] CLIA [id number] [address] [place] [address] [place] Alpha hydroxybutyrate/Creat inine (U) [Molar ratio] <1.0 Normal 0.0-2.7 [facility] Comment on above: Order Comment: Speci men Type: URINE SPECIMEN Ordering Facility: [facility] Address: [address] Performed By: #### L [id number] #### [facility] CLIA [id number] [address] [place] [address] [place] Alpha ketoglutarate/Creatin ine (U) [Molar ratio] 4.9 umol/mmolCr Normal 0.2-42.7 [facility] Comment on above: Order Comment: Speci men Type: URINE SPECIMEN Ordering Facility: [facility] Address: [address] [place], [place] [address] Performed By: #### L [id number] #### [facility] CLIA [id number] [address] [place] [address] [place] Benzoate/Creatinine (U) [Molar ratio] <12.2 Normal 0.0-14.6 [facility] Comment on above: Order Comment: Speci men Type: URINE SPECIMEN Ordering Facility: [facility] Address: [address] [place] [address] Performed By: #### L [id number] #### [facility] CLIA [id number] [address] [place] [address] [place] Beta hydroxybutyrate/Creat inine (U) [Molar ratio] <1.6 Normal 0.1-2.6 [facility] Comment on above: Order Comment: Speci men Type: URINE SPECIMEN Ordering Facility: [facility] Address: [address] [place], [place] [address] Performed By: #### L [id number] #### [facility] CLIA [id number] [address] [place] [address] [place] Butyrylglycine/Creati nine (U) [Molar ratio] 0.0 umol/mmolCr Normal 0.0-0.7 [facility] Comment on above: Order Comment: Speci men Type: URINE SPECIMEN Ordering Facility: [facility] Address: [address] Performed By: #### L [id number] #### [facility] CLIA [id number] [address] [place] [address] [place] Creatinine (U) [Mass/Vol] 53.5 mg/dL Normal 42.2-237.9 [facility] Comment on above: Order Comment: Speci men Type: URINE SPECIMEN Ordering Facility: [facility] Address: [address] [place], [place] [address] Performed By: #### L [id number] #### [facility] CLIA [id number] [address] [place] [address] [place] Ethylmalonate/Creatin ine (U) [Molar ratio] 1.2 umol/mmolCr Normal 0.5-6.2 [facility] Comment on above: Order Comment: Speci men Type: URINE SPECIMEN Ordering Facility: [facility] Address: [address] Performed By: #### L [id number] #### [facility] CLIA [id number] [address] [place] [address] [place] Fumarate/Creatinine (U) [Molar ratio] 0.9 umol/mmolCr Normal 0.3-2.6 [facility] Comment on above: Order Comment: Speci men Type: URINE SPECIMEN Ordering Facility: [facility] Address: [address] [place], [place] [address] Performed By: #### L [id number] #### [facility] CLIA [id number] [address] [place] Glutarate/Creatinine (U) [Molar ratio] 0.1 umol/mmolCr Normal 0.0-1.4 [facility] Comment on above: Order Comment: Speci men Type: URINE SPECIMEN Ordering Facility: [facility] Address: [address] [place] [address] Performed By: #### L [id number] #### [facility] CLIA [id number] [address] [place] [address] [place] Hexanoylglycine/Creat inine (U) [Molar ratio] 0.1 umol/mmolCr Normal 0.0-0.1 [facility] Comment on above: Order Comment: Speci men Type: URINE SPECIMEN Ordering Facility: [facility] Address: [address] [place] [address] Performed By: #### L [id number] #### [facility] CLIA [id number] [address] [place] [address] [place] Isobutyrylglycine/Cre atinine (U) [Molar ratio] 0.6 umol/mmolCr Normal 0.0-1.2 [facility] Comment on above: Order Comment: Speci men Type: URINE SPECIMEN Ordering Facility: [facility] Address: [address] [place], [place] Performed By: #### L [id number] #### [facility] CLIA [id number] [facility] [place] [address] [place] Isocitrate/Creatinine (U) [Molar ratio] 48.3 umol/mmolCr Normal 9.1-271.9 [facility] Comment on above: Order Comment: Speci men Type: URINE SPECIMEN Ordering Facility: [facility] Address: [address] [place], [place] Performed By: #### L [id number] #### [facility] CLIA [id number] [address] [place] [address] [place] Lactate/Creatinine (U) [Molar ratio] 9.8 umol/mmolCr Normal 2.9-47.2 [facility] Comment on above: Order Comment: Speci men Type: URINE SPECIMEN Ordering Facility: [facility] Address: [address] [place] [address] Performed By: #### L [id number] #### [facility] CLIA [id number] [address] [place] [address] [place] Malate/Creatinine (U) [Molar ratio] 0.3 umol/mmolCr Normal 0.0-1.1 [facility] Comment on above: Order Comment: Speci men Type: URINE SPECIMEN Ordering Facility: [facility] Address: [address] [place] [address] Performed By: #### L [id number] #### [facility] CLIA [id number] [address] [place] [address] [place] Malonate/Creatinine (U) [Molar ratio] 0.0 umol/mmolCr Normal 0.0-0.1 [facility] Comment on above: Order Comment: Speci men Type: URINE SPECIMEN Ordering Facility: [facility] Address: [address] [place], [place] [address] Performed By: #### L [id number] #### [facility] CLIA [id number] [address] [place] [address] [place] Methylmalonate/Creati nine (U) [Molar ratio] <0.4 Normal 0.0-0.6 [facility] Comment on above: Order Comment: Speci men Type: URINE SPECIMEN Ordering Facility: [facility] Address: [address] [place], [place] [address] Performed By: #### L [id number] #### [facility] CLIA [id number] [address] [place] [address] [place] Methylsuccinate/Creat inine (U) [Molar ratio] 0.2 umol/mmolCr Normal 0.0-1.4 [facility] Comment on above: Order Comment: Speci men Type: URINE SPECIMEN Ordering Facility: [facility] Address: [address] [place], [place] [address] Performed By: #### L [id number] #### [facility] CLIA [id number] [address] [place] [address] [place] N-acetylaspartate/Cre atinine (U) [Molar ratio] 1.6 umol/mmolCr Normal 0.1-8.9 [facility] Comment on above: Order Comment: Speci men Type: URINE SPECIMEN Ordering Facility: [facility] Address: [address] [place] [address] Performed By: #### L [id number] #### [facility] CLIA [id number] [address] [place] [address] [place] N-acetyltyrosine/Crea tinine (U) [Molar ratio] <0.2 Normal 0.0-1.2 [facility] Comment on above: Order Comment: Speci men Type: URINE SPECIMEN Ordering Facility: [facility] Address: [address] [place], [place] [address] Performed By: #### L [id number] #### [facility] CLIA [id number] [address] [place] [address] [place] Oxalate/Creatinine (U) [Molar ratio] <1.0 Normal 0.7-12.4 [facility] Comment on above: Order Comment: Speci men Type: URINE SPECIMEN Ordering Facility: [facility] Address: [address] [place], [place] [address] Performed By: #### L [id number] #### [facility] CLIA [id number] [address] [place] [address] [place] Pyruvate/Creatinine (U) [Molar ratio] <0.2 Normal 0.1-2.6 [facility] Comment on above: Order Comment: Speci men Type: URINE SPECIMEN Ordering Facility: [facility] Address: [address] Performed By: #### L [id number] #### [facility] CLIA [id number] [address] [place] [address] [place] Sebacate (C8)/Creatinine (U) [Molar ratio] 0.0 umol/mmolCr Normal [facility] Comment on above: Order Comment: Speci men Type: URINE SPECIMEN Ordering Facility: [facility] Address: [address] Performed By: #### L [id number] #### [facility] CLIA [id number] [address] [place] [address] [place] Suberate/Creatinine (U) [Molar ratio] 2.5 umol/mmolCr Normal 0.0-7.4 [facility] Comment on above: Order Comment: Speci men Type: URINE SPECIMEN Ordering Facility: [facility] Address: [address] Performed By: #### L [id number] #### [facility] CLIA [id number] [address] [place] [address] [place] Suberylglycine/Creati nine (U) [Molar ratio] 0.0 umol/mmolCr Normal <=0.0 [facility] Comment on above: Order Comment: Speci men Type: URINE SPECIMEN Ordering Facility: [facility] Address: [address] Performed By: #### L [id number] #### [facility] CLIA [id number] [address] [place] [address] [place] Succinate/Creatinine (U) [Molar ratio] 1.8 umol/mmolCr Normal 0.3-27.4 [facility] Comment on above: Order Comment: Speci men Type: URINE SPECIMEN Ordering Facility: [facility] Address: [address] Performed By: #### L [id number] #### [facility] CLIA [id number] [address] Succinylacetone/Creat inine (U) [Molar ratio] <0.4 Normal <0.4 [facility] Comment on above: Order Comment: Speci men Type: URINE SPECIMEN Ordering Facility: [facility] Address: [address] [place] [address] Performed By: #### L [id number] #### [facility] CLIA [id number] [address] [facility] CONSULTATION Normal [facility] Comment on above: Order Comment: Speci men Type: URINE SPECIMEN Ordering Facility: [facility] Address: [address] [place] [address] Result Comment: This urine organic acid analysis [...] and its performance characteristics determined by the [facility]. It has not been cleared or approved by the US Food and Drug Administration. The FDA had determined that such clearance or approval is not necessary. Performed By: #### L [id number] #### [facility] CLIA [id number] [address] UOA REVIEW Reviewed by Patrick Proctor MD, Ph.D ([id number]) [facility] Comment on above: Order Comment: Speci men Type: URINE SPECIMEN Ordering Facility: [facility] Address: [address] [place] [address] Performed By: #### L [id number] #### [facility] CLIA [id number] [address] [place] [address] Uracil/Creatinine (U) [Molar ratio] 0.9 umol/mmolCr Normal 0.0-5.1 [facility] Comment on above: Order Comment: Speci men Type: URINE SPECIMEN Ordering Facility: [facility] Address: [address] Performed By: #### L [id number] #### [facility] CLIA [id number] [address] [place] [address] PYRUVATE+LACTATE BLon 2022 Lactate [Moles/Vol] 1.2 mmol/L Normal 0.5-2.2 [facility] Comment on above: Order Comment: Speci men Type: BLOOD SPECIMEN Ordering Facility: [facility] Address: [address] [place] [address] Result Comment: This test was developed and its performance characteristics determined by [facility] [place] ([facility] It has not been cleared or approved by the FDA. [facility] is regulated under CLIA as qualified to perform high-complexity testing. This test is used for clinical purposes. It should not be regarded as investigational or for research. Performed By: #### L ACPYR #### [facility] CLIA [id number] [address] [place] [address] Pyruvate (Bld) [Moles/Vol] 0.04 mmol/L Normal 0.03-0.10 [facility] Comment on above: Order Comment: Speci men Type: BLOOD SPECIMEN Ordering Facility: [facility] Address: [address] [place], [place] [address] Result Comment: This test was developed and its performance characteristics determined by [facility] [place] ([facility]). It has not been cleared or approved by the FDA. [facility] is regulated under CLIA as qualified to perform high-complexity testing. This test is used for clinical purposes. It should not be regarded as investigational or for research. Performed By: #### L ACPYR #### [facility] CLIA [id number] [address] [facility] [id number] [address] [place] T4 Free SerPl-mCncon 023 Free T4 [Mass/Vol] 1.3 ng/dL Normal 0.9-1.7 [facility] Comment on above: Order Comment: Rl basilio Type: BLOOD SPECIMEN Ordering Facility: [facility] Address: [address] [place] [address] Performed By: #### 3 -3, 1987-08, 2156-09 #### [facility] CLIA [id number] [facility] [place], [place] [address] [place] [address] [place] TSH SerPl-aCncon 10-17-2022 TSH Qn 2.050 m[IU]/L Normal 0.270-4.200 [facility] Comment on above: Order Comment: Specmaribel basilio Type: BLOOD SPECIMEN Ordering Facility: [facility] Address: [address] [place] [address] Result Comment: If t he patient is , TSH reference range varies by gestational period: First Trimester (weeks 9-12): 0.180-2.990 mIU/L Second Trimester: 0.110-3.980 mIU/L Third Trimester: 0.480-4.710 mIU/L Olman Mcnamara et al. A Practical Approach for the Verifications and Determination of Site- and Trimester-Specific Reference Intervals for Thyroid Function tests in . Thyroid, 2019:29:3:412-420. Reji E, et al. 2017 Guidelines of the [place] Thyroid Association for the Diagnosis and Management of Thyroid Disease during and the . Thyroid, 2017:27:3:315-389. Performed By: #### 3 016-3, 2156-09 #### [facility] CLIA [id number] [facility] [place] [address] [place] VOLTAGE GATED CA IGGon 06-26 -2023 P/Q-TYPE CALCIUM CHANNEL ANTIBODY 10.1 pmol/L Normal 0.0-24.5 [facility] Comment on above: Order Comment: Rl basilio Type: BLOOD SPECIMEN Ordering Facility: [facility] Address: [address] [place] [address] Result Comment: INTE RPRETIVE INFORMATION: P/Q-Type Calcium Channel Antibody 0.0 to 24.5 pmol/L ............. Negative 24.6 to 45.6 pmol/L ............ Indeterminate 45.7 pmol/L or greater.......... Positive This test was developed and its performance characteristics determined by [employer]. It has not been cleared or approved by the [place] Food and Drug Administration. This test was performed in a CLIA certified laboratory and is intended for clinical purposes. Performed By: [employer] [address] [place] [address] Motors Assembler: Terry Jacome MD, PhD Performed By: #### 3 3, 1987-08, 2156-09 #### [facility] CLIA [id number] [facility] [place] [address] [place] VOLTAGE-GATED POTASSIUM VARGAS ABon 10-17-2022 VOLTAGE-GATED POTASSIUM CHANNEL AB, SER 0 pmol/L Normal 0-31 [facility] Comment on above: Order Comment: Rl basilio Type: BLOOD SPECIMEN Ordering Facility: [facility] Address: [address] [place] [id number] Result Comment: INTE RPRETIVE INFORMATION: Voltage-Gated Potassium [...] developed and its performance characteristics determined by [employer]. It has not been cleared or approved by the US Food and Drug Administration. This test was performed in a CLIA certified laboratory and is intended for clinical purposes. Performed By: [employer] [facility] [address] [place] [address] Motors Assembler: Terry Jacome MD, PhD Performed By: #### 3 016-3, 1987-, 2157- #### [facility] CLIA [id number] [facility] [place] [address] [place] NM GASTRIC EMPTYING SOLIDon 09-12-2022 NM GASTRIC EMPTYING SOLID * * *Final Report* * * DATE OF EXAM: Sep 12 2022 2:44PM [facility] 0017 - NM GASTRIC EMPTYING SOLID [...] 4 HOURS IS CONSISTENT WITH SEVERE GASTROPARESIS. Manager Critical Care Unit: MINAL Transcribe Date/Time: Sep 12 2022 3:02P Dictated by : LUZ MARINA VÁZQUEZ MD This examination was interpreted and the report reviewed and electronically signed by: LUZ MARINA VÁZQUEZ MD on Sep 12 2022 3:05PM EST [id number] Normal [facility] Stomach Views for gastric emptying solid phase W radionuclide Izabella 09-12-2022 IMPRESSION: EVIDENCE OF DELAYED RATE OF GASTRIC EMPTYING OF SOLID MEAL. ABNORMAL STUDY: 36-50% RETENTION AT 4 HOURS IS CONSISTENT WITH SEVERE GASTROPARESIS. Manager Critical Care Unit: MINAL Transcribe Date/Time: Sep 12 2022 3:02P Dictated by : LUZ MARINA VÁZQUEZ MD This examination was interpreted and the report reviewed and electronically signed by: LUZ MARINA VÁZQUEZ MD on Sep 12 2022 3:05PM [facility] * * *Final Report* * * DATE OF EXAM: Sep 12 2022 2:44PM [facility] 0017 - NM GASTRIC EMPTYING SOLID [...] (rapid emptying is <30% retention at 1hr). [facility] * * *Final Report* * * DATE OF EXAM: Sep 12 2022 2:44PM [facility] 0017 - NM GASTRIC EMPTYING SOLID [...] 4 HOURS IS CONSISTENT WITH SEVERE GASTROPARESIS. Manager Critical Care Unit: MINAL Transcribe Date/Time: Sep 12 2022 3:02P Dictated by : LUZ MARINA VÁZQUEZ MD This examination was interpreted and the report reviewed and electronically signed by: LUZ MARINA VÁZQUEZ MD on Sep 12 2022 3:05PM [facility] Radiology Study observation (narrative) [facility] Stomach Views for gastric emptying solid phase W radionuclide POOrdered By: [facility]cf Provider on 09-12-2022 [facility] 09-09-2022 HUYEN Telephone (AVXRMO) BELGICA HARPER ([id number]) 1990 F Date Time Provider Department 09/09/22 DIEGO RICKSCO During your visit today, we recorded the [...] Center EGD Study observation Miguelito bender 09-02-2022 [facility] Gastroenterology Gastrointestinal Endoscopy Patient Name: Belgica Harper Procedure Date: 08/31/2022 2:51 PM Date of : 1990 Admit Type: Outpatient Age: 31 Room: [place] [id number] Gender: Female Note Status: Track Patrol Override Attending MD: Carol Winn MD Procedure: [...] verified by the physician, the nurse, the senior statistical programmer and the materials engineering technician in the procedure room at 14:52 [...] the gastric (more content not included)... PROVATION [facility] SURGICAL PATHOLOGYOrdered By : Jameel Jasmine on 09-01-2022 Case Report Surgical Pathology Report Case: [id number] Authorizing Provider: Carol Winn MD Collected: 08/31/2022 03:04 PM Ordering Location: Ambulatory Surgery Received: 08/31/2022 09:20 PM Pathologist: Jameel Jasmine MD Specimens: A) - SMALL INTESTINE BIOPSY, r/o celiac B) - ANTRUM (STOMACH) BIOPSY, r/o hpylori C) - STOMACH BIOPSY, gastric body r/o hpylori [facility] Work Phone: Diagnosis Comment s4faqJOfOZKwgFMfVNWt N LuilfEgQABniYEfI0Wnlu gaTHzuRC6pFF1xiYrqjCM toVLiAGUtBfUcp1ghc281 tBPtf3qjKJTRiphedWd1a KqgN10bq5W1RuocU54uwC JnUJD4CEVmRUYshXZiROD uNMH8WUBxtSMoG7tuIDBa KF7hbkqjWWysLMhbPXHmh PG3HOVktDNhS6DxGEAhVX ucIIBaaxp5DsAoMp1uaFQ yeTcyMFxwYXJkXHBsYWlu SMOpWwDlCAkabv3mL47jt ZYsMSroqAhsZVMop74ly0 bat9BqtU99JWW2MAShhOk yzPXkPZDhjUh0TZS5pKKm EEmrfJienQD5Z7z7JVxqc HJhZXBpdGhlbGlhbCBseW 3hiK5weGDml7ogToRMjIS gTDRpzS4axO9xdlWowcGh dv72RKYhcKvfUBl3YXFuU WNpZmljOyBkaWZmZXJlbn JrXFrtE20uz9drJAIpjRt wdtMwb356wJWixX7jvIVs ZSBsYXRlbnQgIGNlbGlhY gKgfBK1JSqvWDNinMT0iW FxwtAcGDHbJEDpWm8fsKu kMDPZD8HTZPPdKI2yOBhm QoDmvWifzBUsX1CzeSEjZ Y33CQSzkJfeJKnvoxZcsM RpbmcgSGVsaWNvYmFjdGV hNIF7nT0fjSyaZK9jredw i1ClGVGgNcYbL30esfQnR YPsOByidUeao0Vit3aiP3 tiu2S5KFkiax7pbYHiiP= = [facility] Work Phone: FINAL DIAGNOSIS q6puiTOsNJAwzVAkPXMu N WyjvdWzZWUcbOTbP3Zcmb awDMsjXM6aXC7lxJdheAD jkHYcBVXzJxGzy9wav393 nAPxb1qkVTSFtwlgfQn2a VhkD31io6S3QqiaM28bwX QnIFY4XOTgOYHuoOQrLDQ lTSO5GEOepBRjH8pxEMJw LU7ziqjkRRchEBcoCBBdn JM3YGSquATmP2SbKFArEA cuBALqqfr5PqSuFz6vjTI yeTcyMFxwYXJkXHBsYWlu ZIPaSpItLF5jMRYdWBdtT GludGVzdGluZSwgYmlvcH F4QaflbG8dOH7UzNByqCE iocDeh3UsrkRoHY04J21v UTS4oBIoFQ4sej6mkYW6s Zhbs2LpXQLgP5bvxZQxtR LjUCOpfwZbj6cjI5r7S8U hdGNoeSBpbmNyZWFzZSBp biBpbnRyYWVwaXRoZWxpY MjnkMabbSddO0c3PDMjzH jmQSgziU4gKEWiYJSHgB4 iJUFtZXXznjBhqU9dYCPl c6OblDoytHrkOBPjWANzm JRdMuFwuRUfCQQ8kD1pxQ Zin6YeP2prdQZmNAOfqy6 yxNDqGXR5jLZaVClzu4Ez jBBho6szgP3zJN5Lr9Mmn Ym2FPWmx7WeXXPsrSGzSg XhgWDrIIZ6fH5neYVdrew tymoowWFtx33dbt08pXbx FOAmwWVkwryzH0wsiO3vN ZrlyzFvHw2rMSI1v70wQ8 sdSMYySFszQAVgz9ZeiPo cbGluZSAtSGVsaWNvYmFj aXAdBIW2zU2sgQOap5XlV 0gbzQUaGSJcwe1jfLVsPE V2lZCwKZgmf4VjpNMfh7v vhH1iJA5Eu7CaaKf5KPLb r1ShCZXybDDlNdEwgQFbD TF8kA5flJXmpiwdslwqeM Lht04ygc94vPdwAYSjrSV mtzqqD0cfUFK6 [facility] Work Phone: Gross Description g7jhkWDuAYLgqYLBZYUi M YRwGI8juEdscWv0rQxaVN OvwfT7iJGfZEcws0mkNOF 7f6tdvpAMFglwUPOtPChr CRErdhfgQhB9QXzyZMLge ubzPKl9TQytYOLeyPG3AL KfsKUwR3PkUBGrGO2ninu 4DOT5QHjeWECwSyJ5DEIe VbWqUmhhKWy8XUVtbmA4I ex9GNXnLBUutPZyu1J3IJ jtpcbpBFSxnLSvG966VKy gr1XydBWqISqmkKQsTOMY NshlUrdsyPapq7IbwYGoT GlkIDUxMDAwIFxcbmggXF d7SMTnSMdrzZQfVZ1slMa lLnslyRqva7QitFPwDIfn QHPaOVXnZCxxALBcAA9QD wAxBXQpSCB2VCueOrT8NC k8GHRLShOtVeTzJpHvBXA gStYfYRw4EOj3GLpGRwYe IRStElUwFQKmCaQ8VOfiP yBcXHQgMiBcXGYgQXJpYW zxSUipvDNjYP4ieHufkEW pbiBBLiBTTUFMTCBJTlRF O3NFQdAsPyqKPVXJYGPrx iANClxlcGljTmVzdERvYz EgDQpcbHRycGFyXGxpbjB ccmluMCANClxsdHJjaFxm bcRdSSWzD3DazuWsLSfcX CVolg0czOzsHOPyCOOmhY w7aUUuSZQdmJIxIRSbg2D zaXXbLEZwu1N3QTCov6C8 JPMtX2drUTzfwVhfBmY4s yAxLjAgeCAwLjIgeCAwLj QmQ97lKCAuyFNjbPrlb5H vjXl4hSCjSDkrMW5vRTEc PMPkZAF0JV1gqJqzJHQXK lxlcGljTmVzdERvYzBcdj J7EGSpuVZoRUW0CG4dOVR vxiwsYRHfKKBtSQH3WCce jD74tSEiDIQpZBKtyFSfi VxwbGFpbiANCntcKlxlcG xgx9DlmEEmFYgtOOQgMNJ kZJqcKDWoWF2JSlUpGSBw TCO1JImsPuZ9IZb7ZUMBT lMgIiAgMzExNDIyNzQiID o9MCz4SExOImYaGITeVaM iAUM0VGG7EDlwFmJlECHd MiBcXGYgQXJpYWwgXFxmb YSaVS3lqMncaVChxmheuu G6JLDySZykEVTpVMUWLRG LNKJzT9ASNPHFNGiqBsxY UFNZXHBhciANClxlcGljT mVzdERvYzEgDQpcbHRycG FyXGxpbjBccmluMCANClx uuVSojUzqqnJpFZJyA7Mj puCxWJsfWTQxpb9bsQbkE UZfLCSwuWe1iRJvRYLlvP WgNRDzm7TqzEWpMEExq2L 0WHUgt8F0WNAmK6dwVDma jIcrXjP8wyKuNgLvuMAvA jVcoZHcZnXzR38lCJZtoC RliXxiz5XjuHo8eGRpSJs eVO8qWCIsDIYhYUF3RI6n bGluZSANClxlcGljTmVzd WXzDiRsiwJ1AYUwfHIiMO Y2UN5dBEQosybbSJMnLED cRXM6MJlrqZ03wKTeRKQv MTZccGFyfVxwbGFpbiANC icbRxrphAgta2TbyQXnGN lkIDUxMDAyIFxcZGIgIE9 NZkGzIDLtGZY8JKtdFtE0 QJd3ZBLVLmUoOrYuIkSyC XQoEgAfGCh7IMw8NAcSLb LkTCQwTtJrLFw4HbO4NEk yNyBcXHQgMiBcXGYgQXJp QOaeYAqgtGBnIF4vjXzpg DUxzvagffU2LDZlZHbxIZ UtVXMYH88DU7gbBsiAECD ZXHBhciANClxlcGljTmVz dERvYzEgDQpcbHRycGFyX GxpbjBccmluMCANClxsdH LevDdpphIxVWHgI3JoerD sUDbgMNRpqq5yzKcpOVWb TXClaEk0tRIlQILxjOBnD PQip8VzfMOcLHJzg9D6NJ Jun1V4BZKjF2vzZDidiIa sPtP1dnAuKzvceNHkOuPo jHKrQhAuU49yTLIfxJAsx Epgf9EwdLz8eMOgDZlvMZ 9jUBDgNWYbBGI2CN0jmPa kCTVzIWHrduJHLofJRZ6n eSAxMSwgMjAyMyAxOjQxI JTBSZ8tiZWaPD5EIBMdbq YWZukgv2LqFYW2CR6hguG 1jP4wEVOoqmOrrg8wLXQt iNTFqKU5GKnfgbMvZ5glv kflNFC2ISXwWGU3V3luCU PPktKyMFXQpBA2TZdsbqR eON9SONM5TOx3RYRtqnEC ClxlcGljTmVzdERvYzBcd hH1JMSalFQhDUD6XE3oZC TrdbatYWEgAMBzUUH6GWy pqZ38yGZrXXXkHTSfgVNy kDfqhHHzjcWCQvvekB0mL rWpq3yegAl1WWDFBhndtG NgtfbuwxW1UNKkd2owmYo kb7CeqMFyYP0dtDfktP6u ZnMxNiANCn0= [facility] Work Phone: Performing Lab y7bxnCGwCMWkpXMePpDl M LEiDFEtm1ejPQGzwXBjKc EwMzNcZnRuYmpcdWMxXGR yYyGjm9pin774xXVuy8ek BUKrSaV2qLIhSZNkpGRdY 970RANsUYlwg8nmz9VnVE MglZGri8F1QYEOrojotEe 3vUnfK47yz3J2FcacB9wo DLKoEPTmB6LbYG7wKNGwI ml2EYT7ZCY6ALQlMKYzS8 EdQP2yKKJvnABqFQc6n3s hoLtbUWBgVTO3u0xrLVtw vwOiHP0dox1beIy6f4hrq zEgRGVmYXVsdCBQYXJhZ3 KbcJrbUa3smYo0wKzpUqf vRPB8Eil4NK6xcx67vaf8 zMaqOROlgzbzSgQ0FNyeG BTmrzciLMw4PNrsKZIplM D5NZEutDAvX5GkOAonDW6 nybg5JSB1JQymJHVaCqR9 NDBcaGVhZGVyeTcyMFxmb 990GPU3IoFwEM9pS0Dsk8 H3qU6uuQKzKHLkqGIpUvK rYUPrcu2okTVdLUbgr5Bk GXC1lqH9cICfmFTtQPSyE H28Lzdal9UkWvgcy8SjH8 1iqPH8ASljr7foVH5wMtT 1yiWcYSfwz3gslI9aDgK2 TUnnUS5zNZ9iRKIbkE3pg mxjXHBnYnJkcmhlYWRccG sdydFdDo4atKkrQSQ0ETf jK4hfkM0cRdY6EEgrN7lb hL9yFCw1HHibmBP8NMGuh B5oOR9vhnetw3jjUGwhMI clHJBkpkA1pcUnUBEhgEO kX3YeuF7hASKiCG4nweos q5ygKBY5RForGYDlCOZ3H pTaYFSlo6Npwpx4OlKql2 ZmmYVjYFurW37hy204BKB wyyGtD0qanIUepdkmyGWl hcfiRQhfmgV5DSTiCYCpP WluXGYxXGZzMjJcbGFuZz EwMzNcaGljaFxmMVxkYmN mEVTtWEstV9ryBgGgYwIh StUCqDLbau7usTjiAHkqg ORroFBsrWB4kW0sCQDcyt Cgln4kJYNznBPVhIR2MYo wdoYwK2mzxsodHMJ3JRHp AUM6J3gqQWIUvwHuCPJgR MWbvJPpQJUNEOO9WFC3HT AyPIXTMXSvZSI5MVL9URD wOTRccGFyXHBhclxwYXJk XHBsYWluXGYwXGZzMjRcc PufmQ6sHmFoVpFlHqaoWA 3cCQHoN6lyzQDxXRZtRCM lT8qqEoXfpF0fxImvPXeo ZjJcZnMyMlxsdHJjaCBMY GQrizW1u9W0DGxlbIGgkz xmMVxmczIyXGxhbmcxMDM hALyzV6ojEqGlKQQcdWfn NEzby5XoACXcFZApSoUuU UzfSLK9b6I8BFwucAKhxn RDKvJBDI9btFMilahqXC6 ELlxwYXJ9 [facility] Work Phone: [facility] Work Phone: EGD Study observation Narrat iveon 08-31-2022 Radiology Study observation (narrative) [facility] CITRATE URINE 24HRon 023 Citric Acid, U, 24hr 472 mg/24 hr Normal 320-1240 Th [facility] Comment on above: Result Comment: This test was developed and its performance characteristics determined by [facility]. It has not been cleared or approved by the Food and Drug Administration. Performed By: #### A LPHPHN #### [facility] [address] [place] [address] Dr. Li Nagel Citric Acid, Urine 472 mg/L Normal Undefined [facility] Comment on above: Performed By: #### A LPHPHN #### [facility] [address], [place] [address] Dr. Li Nagel OXALATE 24HR URINEon 03-20-2 023 Oxalates, Urine 19 mg/L Normal Undefined [facility] Comment on above: Performed By: #### O X24HR #### [facility] [address] [place] [address] Dr. Li Nagel Oxalates, Urine 24hr 19 mg/24 hr Normal 4-31 [facility] Comment on above: Performed By: #### O X24HR #### [facility] [address] [place] [address] Dr. Li Nagel MAGNESIUM 24HR URINEon 07-09 Magnesium 24hr Urine 45.0 mg/24 hr Normal 12.0-293.0 T [facility] Comment on above: Performed By: #### I MMUN G #### [facility] [address] [place] [address] Dr. Li Nagel Magnesium UR 4.5 mg/dL Normal Not Estab. The [facility] Comment on above: Performed By: #### I MMUN G #### [facility] [address] [place] [address] Dr. Li Nagel PHOSPHORUS 24HR URINEon 06-22 Phosphorus, Urine 51.4 mg/dL Normal Not Estab. The [facility] Comment on above: Performed By: #### P HOS 24 #### [facility] [address] [place] [address] Dr. Li Nagel Phosphorus, Urine 24hr 514 mg/24 hr Normal 261-1078 [facility] Comment on above: Performed By: #### P HOS 24 #### [facility] [address] [place] [address] Dr. Li Nagel URIC ACID 24 HR URINEon 06-22 Uric Acid, Urine 64.0 mg/dL Normal Not Estab. The [facility] Comment on above: Performed By: #### A LPHPHN #### [facility] [address] [place] [address] Dr. Li Nagel Uric Acid, Urine 24hr 640.0 mg/24 hr Normal 173.7-902. 1 [facility] Comment on above: Performed By: #### A LPHPHN #### [facility] [address] [place] [address] Dr. Li Nagel CALCIUM 24 HR URINEon 2022 CALC, 24 HR UR 155.0 mg/24 hr Normal 100.0-300.0 [facility] Comment on above: Performed By: #### I MMUN G #### [facility] [address] [place] [address] Dr. Li Nagel UR CALCIUM 15.5 mg/dL Normal 5.1-21.0 [facility] Comment on above: Performed By: #### I MMUN G #### [facility] [address] [place] [address] Dr. Li Nagel UR TOT VOL 1000 ml/24 HR Normal [facility] Comment on above: Performed By: #### I MMUN G #### [facility] [address] [place] [address] Dr. Li Nagel Performed By: #### A LPHPHN #### [facility] [address] [place] [address] Dr. Li Nagel CREA 24 HR URINEon 3 CREA, 24 HR UR 1891.80 mg/24 hr Critically high 800.00 -1,800. 00 [facility] Comment on above: Performed By: #### A LPHPHN #### [facility] [address] [place] [address] Dr. Li Nagel URINE CREAT 189.18 mg/dL Normal 20.00-300.00 [facility] Comment on above: Performed By: #### A LPHPHN #### [facility] [address] [place] [address] Dr. Li Nagel PTH INTACTon 07-08-2022 PTH, Intact 41 pg/mL Normal 15-65 [facility] Comment on above: Performed By: #### H EPACUT #### [facility] [address] [place] [address] Dr. Li Nagel SODIUM 24 HR URINEon 07-08-2 023 NA, 24 HR UR 149 mmol/24 hr Normal 40-220 [facility] Comment on above: Performed By: #### A LPHPHN #### [facility] [address] [place] [address] Dr. Li Nagel Sodium (U) [Moles/Vol] 149 mmol/L Critically high 30-90 [facility] Comment on above: Performed By: #### A LPHPHN #### [facility] [address] [place] [address] Dr. Li Nagel BUNon 07-06-2022 Urea nitrogen [Mass/Vol] 11.0 mg/dL Normal 7.0-18.0 [facility] Comment on above: Performed By: #### B UN, URIC, CA, K, NA, CL, CO2, CREA #### [facility] [address] [place] [address] Dr. Li Nagel CALCIUMon 07-06-2022 Calcium [Mass/Vol] 9.0 mg/dL Normal 8.5-10.1 [facility] Comment on above: Performed By: #### B UN, URIC, CA, K, NA, CL, CO2, CREA #### [facility] [address] [place] [address] Dr. Li Nagel CHLORIDEon 07-06-2022 Chloride [Moles/Vol] 107 mmol/L Normal 98-107 [facility] Comment on above: Performed By: #### I MMUN G #### [facility] [address] [place] [address] Dr. Li Nagel CO2on 07-06-2022 CO2 [Moles/Vol] 29.2 mmol/L Normal 21.0-32.0 [facility] Comment on above: Performed By: #### I MMUN G #### [facility] [address] [place] [address] Dr. Li Nagel CREATININEon 07-06-2022 Creatinine [Mass/Vol] 0.97 mg/dL Normal 0.55-1.02 [facility] Comment on above: Performed By: #### B UN, URIC, CA, K, NA, CL, CO2, CREA #### [facility] [address] [place] [address] Dr. Li Nagel EGFR-AF STATELESS >60 Normal >=60 [facility] Comment on above: Performed By: #### B UN, URIC, CA, K, NA, CL, CO2, CREA #### [facility] [address] [place] [address] Dr. Li Nagel EGFR-NON AF STATELESS >60 Normal >=60 [facility] Comment on above: Performed By: #### B UN, URIC, CA, K, NA, CL, CO2, CREA #### [facility] [address] [place] [address] Dr. Li Nagel NAon 07-06-2022 Sodium [Moles/Vol] 143 mmol/L Normal 136-145 [facility] Comment on above: Performed By: #### I MMUN G #### [facility] [address] [place] [address] Dr. Li Nagel POTASSIUMon 07-06-2022 Potassium [Moles/Vol] 3.6 mmol/L Normal 3.5-5.1 [facility] Comment on above: Performed By: #### I MMUN G #### [facility] [address] [place] [address] Dr. Li Nagel URIC ACID SERUMon 07-06-2022 Urate [Mass/Vol] 4.7 mg/dL Normal 2.6-6.0 [facility] Comment on above: Performed By: #### B UN, URIC, CA, K, NA, CL, CO2, CREA #### [facility] [address] [place] [address] Dr. Li Nagel SURGICAL PATHOLOGYOrdered By : Karan Nieto on 07-04-2022 Case Report Surgical Pathology Report Case: [id number] Authorizing Provider: Carol Winn MD Collected: 06/30/2022 11:43 AM Ordering Location: Ambulatory Surgery Received: 06/30/2022 10:42 PM Pathologist: Karan Nieto MD Specimens: A) - DUODENUM BIOPSY, r/o celiac B) - STOMACH BIOPSY, r/o H pylori [facility] Work Phone: Diagnosis Comment i3pcsNMpARZfmKYaWOCa N CrqshDuNXYyqONvL6Vyjw tgQLifJY2qVO5wpJbbdJC fyPJaVXXsPvLjd7uhs678 pCXvb6fgOUPSvbhyfAk8d VxbV09ma2H0VonwN97boY KmHTL9AATaFBAtdNVlABL wKPU3TXEieBDmS6soWDTb JD7ufnejUAblQDesBSJzy KY8UMVvpPTmW7MjKPOmSW siYXUvnug6OrUwVu3yoWI yeTcyMFxwYXJkXHBsYWlu TSGaQrGhAV5lPN4wlcPah 2VkIGludHJhZXBpdGhlbG vjcJUoyY1ynA1omUIagbo fgI5akPfsDJMdl6ZvV3Ny c3TaioyiaT74tbQiKx9hp k5pkSv8rWRbWXRrEZroAq Hfr9LtryAqmmOix7RcE2h uhWwmzfM6hKIgRDXvcNxr YyBkaXNlYXNlIGFuZCBvd QsyjeQjo56bfZFgq17qXN A6N6lxWHZhoDJraWrpYAD ro1Zjy1UcNDklLjUenAqa tfKpbK4roNXdtO1eSPakv Ymxi0ZhH9HtoeBbkIqslb bujX0qOHU0nF8oNPtkQC7 kIHNvbWUgbWVkaWNhdGlv coTbEUCpcR4rU7WtPOEhq qOppWX3pP7nSEtsiCmgIU Zfpj5xngnozAGxq5Cij1o hT8xbOMI3tEGaGNLcqYAh NsCnI29la6bfUYDaFOJsQ kLeuXhafNImsYa1GKudRN vkHTDiXT2lcKLrqM== [facility] Work Phone: FINAL DIAGNOSIS m2hxvIKmNEHtdZPwBNJk N ZurhwUgWBDpqVHqD5Fngq yaOCnoIR4gOD7mmSrqaJE koOJzLTLyXnYyj7dkx949 vTUpx9waSMJQvgochUm7u KprO88re8D6YnbdX10jjM WlLWM0YUYjMITfnMMgADT mFQV2HMEoyMYtR4kvDYZb PP4trlhaJDnqZZvjLXLtl UH0RVDckDPjV5HbWDRhWG onLQTpkci2ZzUhSg5cnNG yeTcyMFxwYXJkXHBsYWlu EDAdAkMwBX4nEBXlEDZjh Y5uIQZdw6WomGbtmEWwHT 8pD86pzEttbV85MKB1jR7 geLGzqBXjp6Nap9f5aPAp t6HkGGbonhacpO47dsJfg eKcaNYrM7E5trBcYT3fLN mdQ8DoWWCaJZStwdLkREZ waXRoZWxpYWwgbHltcGhv O5u6VBJ2HKAdUSDax84pE S80LhauCYGdvQSpMCEqXW D4h10wL3axFQHdy4LxuSh duUPtNW0pJ9FuhQGcDeUk nXchdHmqXG41K90cBYJ3i KVyZDZjru4vuWCqCMF4oP IvOOzcrBwiy8GpG2DabgR xcJwbonrkDUPzd2AaHGWp GEFqAAD6aho3aHKcELRgt n0= [facility] Work Phone: Gross Description s8locGYlBAHzqOHTHNUb M SQpTC5vdDfqjWp0bAuaCL KdxmW3hEYnWSamy8hkMDP 7z8pmmaPVEswiOTMnZUqt IKZehlryQnB1XQqsBKKla zzoAGc0NLcnWREesSJ4UJ XzvGOwC5IqXKFaRK6tkgc 8OWQ7CRqnFDArWiA0MUUv KlGbVuosIDb9EHDgbmY5H lx8AAYfGMYslSVxf0X8LB rujrftDGKjdZXkK434QDw va1PemWCjVNiujBExRRCH FnjfHgbpaJksr7FjeXAxE GlkIDUxMDAwIFxcbmggXF z6HAVgNLqtdDEjSB9zcXv iYncqrHtyh8SbsRHmUWij RTRqZMEdNResXSGnHA7UR bYiTOC7Kkp1Zuf5GyM0EI t5IRZHXrVaRlOuGfwvEHQ 4VBFjGEi0QGo5CStVNdH0 CLTeHQvxAAVmOQU7VUe6Q FxcdCAyIFxcZiBBcmlhbC ObBKEdILbqqbW3OYOcVZm fADStATNOF4FVLaBOZLQD S4ZEJZqtPAPzIHngNCWdJ 31hv0NHf6HsQC0AIMo1ia PpjebszB0qAHXsguCiGKs lxPRxL6tiHqXlPCXJMDPr sEAkNJRpsmJwm0UeIHlmm iBhcmUgbXVsdGlwbGUgcG vdP6OnDK7eVNTzedvcx89 toNR5tUJgzXTjZCrgilGl IEVvcaefqT2wBF82TIquD L6sZMvbEV5gERWqUmTQr9 KfgTh8WYI9Vj8dfDPgYTA pcvPluoPfN5Lpu1L0cZSn AHjrVGOnY13es5JKu8PkF ERea0cnfGiwf6YdhKYjWK bfIPHdvPMnQUtcoD9mJwL un1ezpUv0WBwuosK1WQOt uo7gxLsmhS2qBHe9MQtdO LChF0SrE4NaLUyxHXL2MZ AwMiBcXGRiICBPVlIgIiA jRvP3FHC7HTZtHPb7MEum N7VJNTRwYTP7TGo6DOn3Y aP5NWi0QMXKMc0eUAsoAl u0RMViWOA0JLk9HUQeAHS gMiBcXGYgQXJpYWwgXFxm yCNiJT5acAymwHQeomugu hF0EFGxMMuaYWQxWDJKX5 1VD3vxChhWLXHNTDUjuzB NClxlcGljTmVzdERvYzEg DQpcbHRycGFyXGxpbjBcc mluMCANClxsdHJjaFxmcz GkTHCiF0BpzxOeZRseNUF xzp1xqZwzFPRsGAP5t26x rRijG7XaYB8mHSEewgtcc 33kmTP6zSHedFMmQPylht TgNVHaygxrbS6dHC8lDWv bLE2bBXitQR7uZVFvRdGM a3ItqNo8XTD3Nq9pzUNuW OIillOaqeNsR6Oup2D2iH UuIFxwYXIgDQpccGFyIA0 NO5Kfn9WrPTifeYfzTWHy f86qkJYhUt4njQCzYTX4X ENsZXZlbGFuZCBDbGluaW UxPNr2HZFbCQSbmXpfSTP 6NC1yMKCgQFXdsVQqVTze T9vlGXPuNOWqpIAeBD3DD HBhciANCkpUIDAzLzEwLz PjTpPzELo6ClTEPRxgPVO dSJllRUNkS44yu5WWc3Ve EOEpv9zqrNbin0TmnXLqF IeyLRHqkSLtZLphsX2sCr Ljh2zscNu2NEdeemS4XRT ocj8mjCjtbI3hHOrgd8bm ETW1SKZgyZDtwRUuMJpyg OueuF9mLkVkPuy8FDxkXM QkT1QiW2ZtvqR6XSLdLBu uXGZzMTYgDQp9 [facility] Work Phone: Performing Lab m5gsqNCwUPSvuLObStEi M ZMyBYNny2ckDXPhoGRoGs EwMzNcZnRuYmpcdWMxXGR eVjXrh6cgb025bOPsn9ak ZMLfXsP9aHXiXUMmoRKhA 216LFMlLJcrp3grw6SvCT YhuRJxt8S9SFAAeebkwRm 0aRtpK65vz5J0KbfmK6vs INScQBNuK6ElOD3sBYBqO fa7USH9WBR9CZXvDINcP7 LzMR7oMXCzgBZkNHz7r9a ayExyBKXmAQE3b7yoIBsy ibVzBO7zzu2txUm0u3ipf zEgRGVmYXVsdCBQYXJhZ3 PqmErlKe7foTn8pXfgKma wYSV5Vni5EW0icx97cht1 uVyzPJJmuurzFiS0VQrfM GVjulgsIDe6XXlbNWMejR N5ZMPvzLFqF2DuYPevUX5 idsv3IJA3WIyrLIUkNyH9 NDBcaGVhZGVyeTcyMFxmb 640EZE5PwSkII0mV8Ede7 U0sB5rfTPtGDEurXYjPnF dYIWvda0gzKRvWPhtg4Ho YQC8mhZ3aLWcoMTtLJHyA B73Toflt5XqYsoxz5EbL8 8xtEY0RHzag3zuQW4xBnI 9coCiJXseq5bjbD8nWvV3 VJipBN2zHD3aEWOuiB4xb mxjXHBnYnJkcmhlYWRccG nnbiGaLi0mfSepGWN4QGj yC2wmxU4pAnB3ZHvkG6oh wW8sREw2GOqjtOU3TGIjj F3pWG1dojiza8rtIMjvTG wmGUFnlqH1guMtWYLvyRW mF0IywN6kBSFxWE5ikfwy a2beVRP1SAnuYFYeNBN2Z aOvBFQzu6Qrxcv6FvCqm1 ExcYEwZTexM14ar714XVC rjaVuM0mbtTBknroayWLi qramURppuoY2JSSaROKfR WluXGYxXGZzMjJcbGFuZz EwMzNcaGljaFxmMVxkYmN kLXWyTFjsJ6ssGeFmCoHi XrVVkTFegp5jlFuoQZxks OEehPXsaUC9aE5tZLRgim Ntts6bHAZvmGQSlTY4UTf itkCxM5pzvcuwVWG0RYQw YCW4D4aeZOVXjbCaHXLjU WIxnBIlONBCLNU9KKF5FH MuQUQBSLVuUFH2UBX2GFD wOTRccGFyXHBhclxwYXJk XHBsYWluXGYwXGZzMjRcc LzfjR2mAnEnXaAqTnfbSV 8bJFZaT1jfbUXaDRFcNXE aP7xaBeTuqN5siIlgRGgx ZjJcZnMyMlxsdHJjaCBMY EFoxaF0q1A0JGcknBWnsn xmMVxmczIyXGxhbmcxMDM jAAukN0glTfLsMICzeOwr ZCkbh8AgDKMyNKHlGrYrJ SwiWTU5t7F2XOlezTCjpm NBWjJPKS3vnMJudwmtHN3 ELlxwYXJ9 [facility] Work Phone: [facility] Work Phone: EGD Study observation Miguelito bender 06-30-2022 [facility] Gastroenterology Gastrointestinal Endoscopy Patient Name: Belgica Harper Procedure Date: 06/30/2022 11:41 AM Date of : 1990 Admit Type: Outpatient Age: 31 Room: [place] [id number] Gender: Female Note Status: Finalized Attending MD: [...] verified by the physician, the nurse, the senior statistical programmer and the materials engineering technician in the procedure room at 11:35 [...] gastric ulcers (more content not included)... [employer] [facility] Radiology Study observation (narrative) [facility] XR KUB 1 VIEWon 06-30-2022 XR [...] by: JACKSON ADKINS Date: 2022-06-30 07:02 Normal [facility] US ABD RIGHT UPPER QUADRANTo n 06-15-2022 US ABD RIGHT UPPER QUADRANT * * *Final Report* * * DATE OF EXAM: Jun 15 2022 8:13PM [facility] 1032 - US ABD RIGHT UPPER QUADRANT [...] nephrocalcinosis and a few right renal stones. Manager Critical Care Unit: MINAL Transcribe Date/Time: Jun 16 2022 7:46A Dictated by : MINERVA LIM MD This examination was interpreted and the report reviewed and electronically signed by: MINERVA LIM MD on Jun 16 2022 7:48AM EST [id number] N Normal [facility] US ABD RT UPPER QUADRANTon 0 06-15-[address] [facility] [address] ABD/PEL WO IVCONon 2022 Radiology Result ACTIONABLE Abnormal [facility] No Panel Informationon 05-27 [facility] XR CHEST 2V FRONTAL/LATon XR CHEST [...] tissues: Unremarkable. IMPRESSION: No acute radiographic abnormality. Manager Critical Care Unit: [facility] Transcribe Date/Time: May 27 2022 12:39P Dictated by : MARCELA STILL MD This examination was interpreted and the report reviewed and electronically signed by: MARCELA STILL MD on May 27 2022 12:39PM EST [id number] N Normal [facility] WWAIF-1-TBUCDTUWLPI PHENOTYP INGon 05-11-2022 Gylcs-0-Wrvetygasbn, Serum 130 mg/dL Normal 100-188 [facility] Comment on above: Result Comment: Perf ormed at: CB Performed By: #### A [facility] #### [facility] [address], [place] [address] Dr. Li Nagel Phenotype (PI) MM Normal [facility] Comment on above: Result Comment: Phen [...] Performed at: BN Performed By: #### A [facility] #### [facility] [address] [place] [address] Dr. Li Nagel HEREDITARY HEMOCHROMATOSIS, DNA ANALYSISon 05-11-2022 Hereditary Hemochromatosis Comment Normal [facility] Comment on above: Result Comment: Resu lt: c.845G>A (p.Dlt432Khe) - Not Detected c.187C>G (p.Buk66Sux) - Not Detected c.193A>T (p.Vai48Nur) - Not Detected Not associated with increased [...] for patients who are homozygous for c.845G>A (p.Zuy844Pul) and have yet to experience clinical symptoms. . Comments: The most common HFE variants associated with hereditary hemochromatosis are c.845G>A (p.Ynh864Tqv), c.187C>G (p.Zrn23Mzo), c.193A>T (p.Aho49Mxj). While patients homozygous for c.845G>A (p.Ykh207Mtp) are the most likely to present clinical symptoms, less than 10% develop clinically significant iron overload with tissue and organ damage. . Genetic counseling is recommended to discuss the potential clinical implications of positive results, as well as recommendations for testing family members. Genetic Coordinators are available for health care providers to discuss results at [phone] ([phone]). . Test Details: Three variants analyzed: c.845G>A (p.Iam197Hvh), commonly referred to as C282Y c.187C>G (p.Gtt97Djv), commonly referred to as H63D c.193A>T (p.Rel49Lqg), commonly referred to as S65C . Methods/Limitations: [...] developed and its performance characteristics determined by [employer]. It has not been cleared or approved by the Food and Drug Administration. . References: Brodie BR, Yoav PC, Deborah KV, Raymond LW, Ramsey ; [place] [employer] Liver [employer]. Diagnosis and management of hemochromatosis: 2011 practice guideline by the [place] [employer] Liver [employer]. Hepatology. 2011 Oct;54(1):328-43. doi: 10.1002/hep.03086. PMID: 32314751; PMCID: [id number]. Cora G, Olegario P, Fabio DW, Tabatha H, Love O, Zev S, Vazquez Fitzgerald, Sunitha Etienne. [facility] best practice guidelines for the molecular genetic diagnosis of hereditary hemochromatosis (HH). Eur J Hum Margaret. 2016 Jul;24(4):479-97. doi: 10.1038/ejhg.2015.128. Epub 2014Oct 29. PMID: 15309028; PMCID: LZX9075747. . Kenya Hager, PhD, FAC Dm Reyna, PhD Alexandro Rodriguez, PhD, FAC Jhony Hammond, PhD, FACMG Oumar Avila, PhD, FAC Rob Brand, PhD, FAC Pascale Gracia, PhD, [facility] Lala Marvin, PhD, [facility] Performed By: #### H EPACUT #### [facility] [address] [place] [address] Dr. Li Nagel DENY by IFAon 05-06-2022 Antinuclear Antibodies, IFA Negative Normal [facility] Comment on above: Result Comment: Nega tive <1:80 Borderline 1:80 Positive >1:80 ICAP nomenclature: AC-0 For more information about Hep-2 cell patterns use ANApatterns.org, the official website for the International Consensus on Antinuclear Antibody (DENY) Patterns (ICAP). Performed By: #### A LPHPHN #### [facility] [address] [place] [address] Dr. Li Nagel CERULOPLASMINon 05-05-2022 Ceruloplasmin 27.9 mg/dL Normal 19.0-39.0 [facility] Comment on above: Performed By: #### H EPACUT #### [facility] [address] [place] [address] Dr. Li Nagel HEPATITIS A AB IGMon 023 Hep A Ab, IgM Negative Normal Negative [facility] Comment on above: Performed By: #### I MMUN G #### [facility] [address] [place] [address] Dr. Li Nagel IMMUNOGLOBULIN G INDEX SERUM OR CSFon 05-05-2022 Albumin [Mass/Vol] 4.8 g/dL Normal 3.8-4.8 [facility] Comment on above: Performed By: #### I MMUN G #### [facility] [address] [place] [address] [address] Li Nagel Albumin, CSF NSPINL Normal [facility] Comment on above: Result Comment: Test not performed. No spinal fluid received. contacted Radha at your facility on 05-05-2022 Performed By: #### I MMUN G #### [facility] [address] [address] [address] Li Nagel CSF IgG Index UPTCAL Normal [facility] Comment on above: Result Comment: Unab le to calculate result since non-numeric result obtained for component test. Performed By: #### I MMUN G #### [facility] [address] [address] [address] Li Nagel IgG, Quant, CSF NSPINL Normal [facility] Comment on above: Result Comment: Test not performed. No spinal fluid received. contacted Radha at your facility on 05-05-2022 Performed By: #### I MMUN G #### [facility] [facility] [address] [address] [address] Li Nagel IgG/Alb Ratio, CSF UPTCAL Normal [facility] Comment on above: Result Comment: Unab le to calculate result since non-numeric result obtained for component test. Performed By: #### I MMUN G #### [facility] [address] [address] [address] Li Nagel Immunoglobulin G, Qn, Serum 971 mg/dL Normal [id number] [facility] Comment on above: Performed By: #### I MMUN G #### [facility] [address] [address] [address] Li Nagel LIVER-KIDNEY MICROSOMAL (LKM ) ABon 05-05-2022 Liver-Kidney Microsomal Ab 1.3 Units Normal 0.0-20.0 [facility] Comment on above: Result Comment: Nega tive 0.0 - 20.0 Equivocal 20.1 - 24.9 Positive >24.9 . LKM type 1 antibodies are detected in patients with autoimmune hepatitis type 2 and in up to 8% of patients with chronic HCV infection. Performed By: #### H EPACUT #### [facility] [address] [address] [address] Li Nagel MITICHONDRIAL (M2) ANTIBODYo n 05-05-2022 Mitochondrial (M2) Antibody <20.0 Normal 0.0-20.0 [facility] Comment on above: Result Comment: Nega tive 0.0 - 20.0 Equivocal 20.1 - 24.9 Positive >24.9 . Mitochondrial (M2) Antibodies are found in 90-96% of patients with primary biliary cirrhosis. Performed By: #### A LPHPHN #### [facility] [address] [place] [address] Dr. Li Nagel SMOOTH MUSCLE ANTIBODYon Actin (Smooth Muscle) Antibody 9 Units Normal 0-19 [facility] Comment on above: Result Comment: Nega tive 0 - 19 Weak positive 20 - 30 Moderate to strong positive >30 . Actin Antibodies are found in 52-85% of patients with autoimmune hepatitis or chronic active hepatitis and in 22% of patients with primary biliary cirrhosis. Performed By: #### A LPHPHN #### [facility] [address] [address] [address] Li Nagel FERRITINon 05-03-2022 Ferritin [Mass/Vol] 319.0 ng/mL Critically high 6.2-137.0 [facility] Comment on above: Performed By: #### A LPHPHN #### [facility] [address] [place] [address] Dr. Li Nagel PAP ACOG PANEL 2: 30 to 65on 04-28-2022 . . Normal [facility] Comment on above: Result Comment: Perf ormed at: BA Performed By: #### I MMUN G #### [facility] [address] [place] [address] Dr. Li Nagel Age Gdln ACOG Testing 30-65 Normal [facility] Comment on above: Performed By: #### I MMUN G #### [facility] [address] [place] [address] Dr. Li Nagel DIAGNOSIS: Comment Normal [facility] Comment on above: Result Comment: NEGA TIVE FOR INTRAEPITHELIAL LESION OR MALIGNANCY. Performed at: BA Performed By: #### I MMUN G #### [facility] [address] [address] [address] Li Nagel HPV Aptima Negative Normal Negative [facility] Comment on above: Result Comment: This nucleic acid amplification test detects fourteen high-risk HPV types (16,18,31,33,35,39,45,51,52,56,58,59,66,68) without differentiation. Performed at: =G Performed By: #### I MMUN G #### [facility] [address] [address] [address] Li Nagel HPV Genotype Reflex Comment Normal [facility] Comment on above: Result Comment: Crit eria not met, HPV Genotype not performed. Performed at: BA Performed By: #### I MMUN G #### [facility] [address] [place] [address] Dr. Li Nagel Methodology: Comment Normal [facility] Comment on above: Result Comment: This liquid based ThinPrep(R) pap test was screened with the use of an image guided system. Performed at: WB Performed By: #### I MMUN G #### [facility] [address] [place] [address] Dr. Li Nagel Note: Comment Normal [facility] Comment on above: Result Comment: The [...] Performed By: #### I MMUN G #### [facility] [address] [address] [address] Li Nagel Performed by: Comment Normal [facility] Comment on above: Result Comment: Gretta Holly, Bread Dumper (ASCP) Performed at: BA Performed By: #### I MMUN G #### [facility] [address] [place], [place] [id number] Dr. Li Nagle Specimen adequacy: Comment Normal [facility] Comment on above: Result Comment: Sati sfactory for evaluation. No endocervical component is identified. Performed at: BA Performed By: #### I MMUN G #### [facility] [address] [address] [address] Li [facility] Normal Negative [facility] Comment on above: Performed By: #### H EPACUT #### [facility] [address] [address] [address] Li Nagel HCV AB <0.1 Normal 0.0-0.9 [facility] Comment on above: Performed By: #### H EPACUT #### [facility] [address] [address] [address] Li Nagel Hep A Ab, IgM Negative Normal Negative [facility] Comment on above: Performed By: #### H EPACUT #### [facility] [address] [address] [address] Li Nagel Hep B Core Ab, IgM Negative Normal Negative [facility] Comment on above: Performed By: #### H EPACUT #### [facility] [address] [address] [address] Li Nagel Interpretation: Comment Normal [facility] Comment on above: Result Comment: Nega tive Not infected with HCV, unless recent infection is suspected or other evidence exists to indicate HCV infection. Performed By: #### H EPACUT #### [facility] [address] [address] [address] Li Nagel US PELVIS AND TRANSVAGon [...] LAURIE CRUZ Date: 2021-12-22 09:50 Normal [facility] US ABD RT UPPER QUADRANTon 0 12-10-2021 [facility] US PELVIS AND TRANSVAGon US PELVIS [...] LAURIE CRUZ Date: 2021-10-28 13:01 Normal [facility] VAGINITIS/VAGINOSIS DNA PROB Kwasi 10-21-2021 Sarah species Negative Normal Negative [facility] Comment on above: Performed By: #### I MMUN G #### [facility] [address] [address] [address] Li Nagel Gardnerella vaginalis Negative Normal Negative [facility] Comment on above: Performed By: #### I MMUN G #### [facility] [address] [address] [address] Li Nagel Trichomonas vaginalis Negative Normal Negative [facility] Comment on above: Performed By: #### I MMUN G #### [facility] [address] [place] [address] Dr. Li Nagel CBC AUTO DIFFon 10-20-2021 BASO # 0.0 103/ul Normal 0.0-0.1 [facility] Comment on above: Performed By: #### A LPHPHN #### [facility] [address] [place] [address] Dr. Li Nagel Basophils/100 WBC (Bld) 0.4 % Normal 0.2-2.0 [facility] Comment on above: Performed By: #### A LPHPHN #### [facility] [address] [place] [address] Dr. Li Nagel EO # 0.2 103/ul Normal 0.0-0.7 [facility] Comment on above: Performed By: #### A LPHPHN #### [facility] [address] [place] [address] Dr. Li Nagel Eosinophils/100 WBC (Bld) 2.6 % Normal 0.9-7.0 [facility] Comment on above: Performed By: #### A LPHPHN #### [facility] [address] [place] [address] Dr. Li Nagel Erythrocyte distribution width (RBC) [Ratio] 12.6 % Normal 11.0-15.0 [facility] Comment on above: Performed By: #### A LPHPHN #### [facility] [address] [place] [address] Dr. Li Nagel Hematocrit (Bld) [Volume fraction] 40.0 % Normal 36.0-48.0 [facility] Comment on above: Performed By: #### A LPHPHN #### [facility] [address] [place] [address] Dr. Li Nagel Hemoglobin (Bld) [Mass/Vol] 13.3 g/dL Normal 12.0-16.0 [facility] Comment on above: Performed By: #### A LPHPHN #### [facility] [address] [address] [address] Li Nagel IG # 0.06 10e3/ul Critically high 0.00-0.03 [facility] Comment on above: Performed By: #### A LPHPHN #### [facility] [address] [address] [address] Li Nagel IG % 0.9 % Critically high 0.0-0.5 [facility] Comment on above: Performed By: #### A LPHPHN #### [facility] [address] [place] [address] Dr. Li Nagel LYMPH # 2.2 103/ul Normal 1.2-3.8 [facility] Comment on above: Performed By: #### A LPHPHN #### [facility] [address] [place] [address] Dr. Li Nagel Lymphocytes/100 WBC (Bld) 31.0 % Normal 20.5-60.0 [facility] Comment on above: Performed By: #### A LPHPHN #### [facility] [address] [place] [address] Dr. Li Nagel MANUAL DIFF REQ NO Normal [facility] Comment on above: Performed By: #### A LPHPHN #### [facility] [address] [place] [address] Dr. Li Nagel MCH (RBC) [Entitic mass] 31.4 pg Normal 26.7-34.0 [facility] Comment on above: Performed By: #### A LPHPHN #### [facility] [address] [place] [address] Dr. Li Nagel MCHC (RBC) [Mass/Vol] 33.3 g/dL Normal 29.9-35.2 [facility] Comment on above: Performed By: #### A LPHPHN #### [facility] [address] [place] [address] Dr. Li Nagel MCV (RBC) [Entitic vol] 94.3 fL Normal 81.0-99.0 [facility] Comment on above: Performed By: #### A LPHPHN #### [facility] [address] [place] [address] Dr. Li Nagel MONO # 0.5 103/ul Normal 0.3-0.8 [facility] Comment on above: Performed By: #### A LPHPHN #### [facility] [address] [place] [address] Dr. Li Nagel Monocytes/100 WBC (Bld) 6.9 % Normal 1.7-12.0 [facility] Comment on above: Performed By: #### A LPHPHN #### [facility] [address] [place] [address] Dr. Li Nagel NEUT # 4.1 103/ul Normal 1.4-6.5 [facility] Comment on above: Performed By: #### A LPHPHN #### [facility] [address] [place] [address] Dr. Li Nagel Neutrophils/100 WBC (Bld) 58.2 % Normal 43.0-75.0 [facility] Comment on above: Performed By: #### A LPHPHN #### [facility] [address] [place] [address] Dr. Li Nagel Platelet mean volume (Bld) [Entitic vol] 11.0 fL Normal 9.5-13.5 [facility] Comment on above: Performed By: #### A LPHPHN #### [facility] [address] [place] [address] Dr. Li Nagel PLT 211 103/ul Normal 150-450 [facility] Comment on above: Performed By: #### A LPHPHN #### [facility] [address] [place] [address] Dr. Li Nagel RBC 4.24 106/ul Normal 4.20-5.40 [facility] Comment on above: Performed By: #### A LPHPHN #### [facility] [address] [place] [address] Dr. Li Nagel WBC 7.0 103/ul Normal 4.0-11.0 [facility] Comment on above: Performed By: #### A LPHPHN #### [facility] [id number] Li Nagel CT ABD/PELV W CONon [...] DOLORES MOON Date: 2021-10-20 14:53 Normal [facility] OCC BLD IMMUNO SCREENon 09-23 OCCULT BLOOD Negative Normal NEGATIVE [facility] Comment on above: Performed By: #### O BSCRN #### [facility] [address] [address] [address] Li Nagel PROF 14(COMP METB)on 022 Albumin [Mass/Vol] 3.7 g/dL Normal 3.4-5.0 [facility] Comment on above: Performed By: #### A LPHPHN #### [facility] [address] [place], [place] [address] Dr. Li Nagel Albumin/Globulin [Mass ratio] 1.2 {ratio} Normal [facility] Comment on above: Performed By: #### A LPHPHN #### [facility] [address] [address] [address] Li Nagel ALP [Catalytic activity/Vol] 86 U/L Normal 46-116 [facility] Comment on above: Performed By: #### A LPHPHN #### [facility] [address] [address] [address] Li Nagel ALT [Catalytic activity/Vol] 109 U/L Critically high 14-59 [facility] Comment on above: Performed By: #### A LPHPHN #### [facility] [address] [address] [address] Li Nagel Anion gap [Moles/Vol] 7.8 mmol/L Normal [facility] Comment on above: Performed By: #### A LPHPHN #### [facility] [address] [address] [address] Li Nagel AST [Catalytic activity/Vol] 57 U/L Critically high 15-37 [facility] Comment on above: Performed By: #### A LPHPHN #### [facility] [address] [address] [address] Li Nagel Bilirubin [Mass/Vol] 0.4 mg/dL Normal 0.2-1.0 [facility] Comment on above: Performed By: #### A LPHPHN #### [facility] [address] [address] [address] Li Nagel Calcium [Mass/Vol] 8.9 mg/dL Normal 8.5-10.1 [facility] Comment on above: Performed By: #### A LPHPHN #### [facility] [address] [address] [address] Li Nagel Chloride [Moles/Vol] 104 mmol/L Normal 98-107 [facility] Comment on above: Performed By: #### A LPHPHN #### [facility] [address] [address] [address] Li Nagel CO2 [Moles/Vol] 27.7 mmol/L Normal 21.0-32.0 [facility] Comment on above: Performed By: #### A LPHPHN #### [facility] [address] [address] [address] Li aNgel Creatinine [Mass/Vol] 0.78 mg/dL Normal 0.55-1.02 [facility] Comment on above: Performed By: #### A LPHPHN #### [facility] [address] [address] [address] Li Nagel EGFR-AF STATELESS >60 Normal >=60 [facility] Comment on above: Performed By: #### A LPHPHN #### [facility] [address] [place] [address] Dr. Li Nagel EGFR-NON AF STATELESS >60 Normal >=60 [facility] Comment on above: Performed By: #### A LPHPHN #### [facility] [address] [place] [address] Dr. Li Nagel Globulin (S) [Mass/Vol] 3.2 g/dL Normal [facility] Comment on above: Performed By: #### A LPHPHN #### [facility] [address] [place] [address] Dr. Li Nagel Glucose [Mass/Vol] 104 mg/dL Normal 74-106 [facility] Comment on above: Performed By: #### A LPHPHN #### [facility] [address] [place] [address] Dr. Li Nagel Potassium [Moles/Vol] 3.5 mmol/L Normal 3.5-5.1 [facility] Comment on above: Performed By: #### A LPHPHN #### [facility] [address] [place] [address] Dr. Li Nagel Protein [Mass/Vol] 6.9 g/dL Normal 6.4-8.2 [facility] Comment on above: Performed By: #### A LPHPHN #### [facility] [address] [place] [address] Dr. Li Nagel Sodium [Moles/Vol] 136 mmol/L Normal 136-145 [facility] Comment on above: Performed By: #### A LPHPHN #### [facility] [address] [address] [address] Li Nagel Urea nitrogen [Mass/Vol] 10.0 mg/dL Normal 7.0-18.0 [facility] Comment on above: Performed By: #### A LPHPHN #### [facility] [address] [address] [address] Li Nagel Urea nitrogen/Creatinine [Mass ratio] 12.8 mg/mg Normal [facility] Comment on above: Performed By: #### A LPHPHN #### [facility] [address] [address] [address] Li Nagel XR LSPINE MIN 4 [...] LAURIE CRUZ Date: 2021-09-06 15:05 Normal [facility] NM HEPATOBILIARY SCAN W EFon [...] JACKSON ADKINS Date: 2021-08-27 16:05 Normal [facility] Comprehensive Metabolic Pane yair 08-20-2021 Albumin [Mass/Vol] 5.0 g/dL Normal 3.6-5.1 Casi moran [place] [facility] Comment on above: Performed By: #### C MP #### [facility] [address], [place] [id number] Albumin/Globulin [Mass ratio] 2.1 {ratio} Normal 1.0-2.5 [facility] Comment on above: Performed By: #### C MP #### [facility] [address], [place] [id number] ALP [Catalytic activity/Vol] 110 U/L Normal 35-119 [facility] Comment on above: Performed By: #### C MP #### [facility] [address] [place], [place] [id number] ALT [Catalytic activity/Vol] 71 U/L High 6-33 [facility] Comment on above: Result Comment: 03/24 Female reference range changed. Performed By: #### C MP #### [facility] [address], [place] [id number] Anion gap [Moles/Vol] 17 mmol/L Normal 12-20 [facility] Comment on above: Result Comment: Effe ctive 04/29/2019 reference range changed. Performed By: #### C MP #### [facility] [address], [place] [id number] AST [Catalytic activity/Vol] 69 U/L High 9-34 [facility] Comment on above: Performed By: #### C MP #### [facility] [address], [place] [id number] BUN/CREA 11 Ratio Normal 6-22 [facility] Comment on above: Performed By: #### C MP #### [facility] [address], [place] [id number] Calcium [Mass/Vol] 9.8 mg/dL Normal 8.6-10.2 Casi rn [place] [employer] [facility] Comment on above: Performed By: #### C MP #### [facility] [address], [place] [id number] Chloride [Moles/Vol] 99 mmol/L Normal 98-107 [facility] Specialist Comment on above: Performed By: #### C MP #### [facility] [address], [place] [id number] CO2 [Moles/Vol] 25 mmol/L Normal 20-31 [facility] Comment on above: Performed By: #### C MP #### [facility] [address], [place] [id number] Creatinine [Mass/Vol] 0.9 mg/dL Normal 0.6-1.4 [facility] Comment on above: Performed By: #### C MP #### [facility] [address], [place] [id number] eGFRAA 94 mL/min/1.73m2 Normal >60 [facility] Comment on above: Performed By: #### C MP #### [facility] [address], [place] [id number] eGFRNAA 78 mL/min/1.73m2 Normal >60 [facility] Comment on above: Performed By: #### C MP #### [facility] [address], [place] [id number] Globulin (S) [Mass/Vol] 2.4 g/dL Normal 1.9-3.7 [facility] Comment on above: Performed By: #### C MP #### [facility] [address], [place] [id number] Glucose [Mass/Vol] 100 mg/dL High 65-99 [facility] Comment on above: Result Comment: For FASTING Glucose --- ADA reference ranges: Normal 65-99 mg/dl Prediabetes 100-125 Diabetes >/= 126 Performed By: #### C MP #### [facility] [address], [place] [id number] Potassium [Moles/Vol] 3.8 mmol/L Normal 3.5-5.5 [facility] Comment on above: Performed By: #### C MP #### [facility] [address], [place] [id number] Protein [Mass/Vol] 7.4 g/dL Normal 6.1-8.1 [facility] Comment on above: Performed By: #### C MP #### [facility] [address], [place] [id number] Sodium [Moles/Vol] 137 mmol/L Normal 135-146 [facility] Comment on above: Performed By: #### C MP #### [facility] [address], [place] [id number] TBIL <0.[address] [facility] Comment on above: Performed By: #### C MP #### [facility] [address], [place] [id number] Urea nitrogen [Mass/Vol] 10 mg/dL Normal 7-25 [facility] Comment on above: Performed By: #### C MP #### [facility] [address], [place] [id number] US SINGLE QUAD RT UPPERon US SINGLE [...] by: JACKSON ADKINS Date: 2021-08-16 08:19 Normal [facility] Complete Blood Count with Au to Diffon 08-06-2021 Basophils (Bld) [#/Vol] 0.03 10*3/uL Normal 0.00-0.20 [facility] Comment on above: Performed By: #### C MP, CBCAD, LIPD #### [facility] [address], [place] [id number] Basophils/100 WBC (Bld) 0.4 % Normal [facility] Comment on above: Performed By: #### C MP, CBCAD, LIPD #### [facility] [address], [place] [id number] Eosinophils (Bld) [#/Vol] 0.11 10*3/uL Normal 0.02-0.50 [facility] Comment on above: Performed By: #### C MP, CBCAD, LIPD #### [facility] [address], [place] [id number] Eosinophils/100 WBC (Bld) 1.4 % Normal [facility] Comment on above: Performed By: #### C MP, CBCAD, LIPD #### [facility] [address], [place] [id number] Erythrocyte distribution width (RBC) [Ratio] 12.6 % Normal 11.0-15.0 [facility] Comment on above: Performed By: #### C MP, CBCAD, LIPD #### [facility] [address], [place] [id number] Hematocrit (Bld) [Volume fraction] 44.2 % Normal 35.0-47.0 [facility] Comment on above: Performed By: #### C MP, CBCAD, LIPD #### [facility] [address], [place] [id number] Hemoglobin (Bld) [Mass/Vol] 14.8 g/dL Normal 11.6-15.5 [facility] Comment on above: Performed By: #### C MP, CBCAD, LIPD #### [facility] [address], [place] [id number] Lymphocytes (Bld) [#/Vol] 2.2 10*3/uL Normal 0.9-3.9 [facility] Comment on above: Performed By: #### C MP, CBCAD, LIPD #### [facility] [address], [place] [id number] Lymphocytes/100 WBC (Bld) 28.1 % Normal [facility] Comment on above: Performed By: #### C MP, CBCAD, LIPD #### [facility] [address], [place] [id number] MCH (RBC) [Entitic mass] 31.2 pg Normal 27.0-33.0 [facility] Comment on above: Performed By: #### C MP, CBCAD, LIPD #### [facility] [address], [place] [id number] MCHC (RBC) [Mass/Vol] 33.5 g/dL Normal 32.0-36.0 [facility] Comment on above: Performed By: #### C MP, CBCAD, LIPD #### [facility] [address], [place] [id number] MCV (RBC) [Entitic vol] 93 fL Normal 80-100 [facility] Comment on above: Performed By: #### C MP, CBCAD, LIPD #### [facility] [address], [place] [id number] Monocytes (Bld) [#/Vol] 0.4 10*3/uL Normal 0.2-0.9 [facility] Comment on above: Performed By: #### C MP, CBCAD, LIPD #### [facility] [address], [place] [id number] Monocytes/100 WBC (Bld) 4.8 % Normal [facility] Comment on above: Performed By: #### C MP, CBCAD, LIPD #### [facility] [address], [place] [id number] Neutrophils (Bld) [#/Vol] 5.1 10*3/uL Normal 1.5-7.8 [facility] Comment on above: Performed By: #### C MP, CBCAD, LIPD #### [facility] [address], [place] [id number] Neutrophils/100 WBC (Bld) 64.3 % Normal [facility] Comment on above: Performed By: #### C MP, CBCAD, LIPD #### [facility] [address], [place] [id number] Platelet mean volume (Bld) [Entitic vol] 11.00 fL Normal 7.50-12.50 [facility] Comment on above: Performed By: #### C MP, CBCAD, LIPD #### [facility] [address], [place] [id number] Platelets (Bld) [#/Vol] 296 10*3/uL Normal 140-400 [facility] Comment on above: Performed By: #### C MP, CBCAD, LIPD #### [facility] [address], [place] [id number] RBC (Bld) [#/Vol] 4.74 10*6/uL Normal 3.90-5.20 [facility] Comment on above: Performed By: #### C MP, CBCAD, LIPD #### [facility] [address], [place] [id number] RDW-SD 43.4 fL Normal 37.0-50.0 [facility] Special[facility] Comment on above: Performed By: #### C MP, CBCAD, LIPD #### [facility] [address], [place] [id number] WBC (Bld) [#/Vol] 8.0 10*3/uL Normal 3.8-11.0 [facility] Special[facility] Comment on above: Performed By: #### C MP, CBCAD, LIPD #### [facility] [address], [place] [id number] Comprehensive Metabolic Pane [facility] 08-06-2021 Albumin [Mass/Vol] 5.2 g/dL High 3.6-5.1 [facility] Special[facility] Comment on above: Performed By: #### C MP, CBCAD, LIPD #### [facility] [address], [place] [id number] Albumin/Globulin [Mass ratio] 2.1 {ratio} Normal 1.0-2.5 [facility] Comment on above: Performed By: #### C MP, CBCAD, LIPD #### [facility] [address], [place] [id number] ALP [Catalytic activity/Vol] 115 U/L Normal 35-119 [facility] Comment on above: Performed By: #### C MP, CBCAD, LIPD #### [facility] [address], [place] [id number] ALT [Catalytic activity/Vol] 101 U/L High 6-33 [facility] Comment on above: Result Comment: 03/24 Female reference range changed. Performed By: #### C MP, CBCAD, LIPD #### [facility] [address] [facility] [place] [id number] Anion gap [Moles/Vol] 20 mmol/L Normal 12-20 [facility] Comment on above: Result Comment: Effe ctive 04/29/2019 reference range changed. Performed By: #### C MP, CBCAD, LIPD #### [facility] [address] [facility] [place] [place] [id number] AST [Catalytic activity/Vol] 96 U/L High 9-34 [facility] Comment on above: Performed By: #### C MP, CBCAD, LIPD #### [facility] [address] [facility] [place] [id number] BUN/CREA 9 Ratio Normal 6-22 [facility] Comment on above: Performed By: #### C MP, CBCAD, LIPD #### [facility] [address] [facility] [place] [id number] Calcium [Mass/Vol] 9.9 mg/dL Normal 8.6-10.2 [facility] Comment on above: Performed By: #### C MP, CBCAD, LIPD #### [facility] [address] [facility] [place] [place] [id number] Chloride [Moles/Vol] 106 mmol/L Normal 98-107 [facility] Comment on above: Performed By: #### C MP, CBCAD, LIPD #### [facility] [address] [facility] [place] [id number] CO2 [Moles/Vol] 21 mmol/L Normal 20-31 [facility] Comment on above: Performed By: #### C MP, CBCAD, LIPD #### [facility] [address] [facility] [place] [place] [id number] Creatinine [Mass/Vol] 0.9 mg/dL Normal 0.6-1.4 [facility] Comment on above: Performed By: #### C MP, CBCAD, LIPD #### [facility] [address] [place], [place] [id number] eGFRAA 90 mL/min/1.73m2 Normal >60 [facility] Comment on above: Performed By: #### C MP, CBCAD, LIPD #### [facility] [address], [place] [id number] eGFRNAA 74 mL/min/1.73m2 Normal >60 [facility] Comment on above: Performed By: #### C MP, CBCAD, LIPD #### [facility] [address], [place] [id number] Globulin (S) [Mass/Vol] 2.5 g/dL Normal 1.9-3.7 [facility] Comment on above: Performed By: #### C MP, CBCAD, LIPD #### [facility] [address], [place] [id number] Glucose [Mass/Vol] 127 mg/dL High 65-99 [facility] Special[facility] Comment on above: Result Comment: For FASTING Glucose --- ADA reference ranges: Normal 65-99 mg/dl Prediabetes 100-125 Diabetes >/= 126 Performed By: #### C MP, CBCAD, LIPD #### [facility] [address], [place] [id number] Potassium [Moles/Vol] 4.2 mmol/L Normal 3.5-5.5 [facility] Comment on above: Performed By: #### C MP, CBCAD, LIPD #### [facility] [address], [place] [id number] Protein [Mass/Vol] 7.7 g/dL Normal 6.1-8.1 [facility] Director Comment on above: Performed By: #### C MP, CBCAD, LIPD #### [facility] [address], [place] [id number] Sodium [Moles/Vol] 143 mmol/L Normal 135-146 [facility]ap Director Comment on above: Performed By: #### C MP, CBCAD, LIPD #### [facility] [address], [place] [id number] TBIL <0.3 Normal [place] [facility] Director Comment on above: Performed By: #### C MP, CBCAD, LIPD #### [facility] [address], [place] [id number] Urea nitrogen [Mass/Vol] 8 mg/dL Normal 7-25 [facility] Sap Director Comment on above: Performed By: #### C MP, CBCAD, LIPD #### [facility] [address], [place] [id number] Hemoglobin A1Con 08-06-2021 EAG 99.67 Normal [facility] Sap Director Comment on above: Performed By: #### A 1C #### [facility] [address], [place] [id number] HbA1c (Bld) [Mass fraction] 5.1 % Normal 4.0-6.0 [facility] Sap Director Comment on above: Performed By: #### A 1C #### [facility] [address], [place] [id number] Lipid Panelon 08-06-2021 Cholesterol [Mass/Vol] 190 mg/dL Normal 125-200 [facility] Sap Director Comment on above: Result Comment: Low risk < 200mg/dL Borderline risk 201-239 mg/dl High risk > or equal to 240 Performed By: #### C NORBERTO, CBCAD, LIPD #### [facility] [address], [place] [id number] Cholesterol in HDL [Mass/Vol] 64 mg/dL Normal >40 [facility] Sap Director Comment on above: Result Comment: High Cardiovascular Risk HDL <40 mg/dL Low Cardiovascular Risk HDL > or equal to 60 mg/dl Performed By: #### C MP, CBCAD, LIPD #### [facility] [address], [place] [id number] Cholesterol in LDL [Mass/Vol] 107 mg/dL Normal [facility] Sap Director Comment on above: Result Comment: LDL ATP III CLASSIFICATION LDL less than 100 mg/dl Optimal LDL 100-129 mg/dl Near or above optimal LDL 130-159 Borderline high LDL 160-189 High LDL greater than 189 mg/dl Very High Performed By: #### C MP, CBCAD, LIPD #### [facility] [address], [place] [id number] Cholesterol in VLDL [Mass/Vol] 19 mg/dL Normal [place] [facility] Director Comment on above: Performed By: #### C MP, CBCAD, LIPD #### [facility] [address], [place] [id number] Cholesterol.total/Cho lesterol in HDL [Mass ratio] 3 {ratio} Normal [facility] Comment on above: Performed By: #### C MP, CBCAD, LIPD #### [facility] [address], [place] [id number] Triglyceride [Mass/Vol] 95 mg/dL Normal 30-150 [facility] Comment on above: Result Comment: TRIG ATPIII CLASSIFICATIONS TRIG less than 150 mg/dl Normal TRIG 150-199 mg/dl Borderline High TRIG 200-500 mg/dl High TRIG greather than 500 mg/dl Very High Performed By: #### C MP, CBCAD, LIPD #### [facility] [address], [place] [id number] Q - CULTURE,URINE,ROUTINEon 06-04-2021 CULTURE, URINE, ROUTINE SEE NOTE Normal [facility] Specialist Comment on above: Order Comment: [facility] Testing performed at: [email or web address], [facility], [address] [facility], [address] [place] [address], [id number], Motors Assembler: Tim Dotson MD [facility] Collection Date/Time: [facility] Results Received Date/Time: [facility] Reported Date/Time: Result Comment: CULT URE, URINE, ROUTINE Micro Number: [id number] Test Status: Final Specimen Source: Not given Specimen Quality: Adequate Result: Mixed genital marie isolated. These superficial bacteria are not indicative of a urinary tract infection. No further organism identification is warranted on this specimen. If clinically indicated, recollect clean-catch, mid-stream urine and transfer immediately to Urine Culture Transport Tube. Performed By: #### [id number] #### [facility] Default [address] [place] [id number] MRI LUMBAR SPINE WO CONTRAST on 11-06-2018 [...] Naren Lagos MD 11/06/18 Final result Normal [facility] Vital Signs Date Time Vital Sign Value Performing Clinician Facility 02-06-2024 09:14-0400 Body height 157.5 cm Giovani Hagen MD Work Phone: [facility] 02-06-2024 09:14-0400 Body mass index (BMI) [Ratio] 34.93 kg/m2 Giovani Hagen MD Work Phone: [facility] 02-06-2024 09:14-0400 Body weight 86.64 kg Giovani Hagen MD Work Phone: [facility] 02-06-2024 09:14-0400 Diastolic blood pressure 88 mm[Hg] Giovani Hagen MD Work Phone: [facility] 02-06-2024 09:14-0400 Heart rate 106 /min Giovani Hagen MD Work Phone: [facility] 02-06-2024 09:14-0400 SaO2% (BldA) [Mass fraction] 99 % Giovani Hagen MD Work Phone: [facility] 02-06-2024 09:14-0400 Systolic blood pressure 130 mm[Hg] Giovani Hagen MD Work Phone: [facility] 12-28-2023 15:17-0400 Blood Pressure Location BHAVESH DEJESUS [facility] 12-28-2023 15:17-0400 Diastolic blood pressure 100 mm[Hg] BHAVESH OLEG [facility] 12-28-2023 15:17-0400 Heart rate 101 /min BHAVESHCONSTANTINO DEJESUS [facility] 12-28-2023 15:17-0400 Respiratory rate 18 /min BHAVESH OLEG [facility] 12-28-2023 15:17-0400 Systolic blood pressure 146 mm[Hg] BHAVESH OLEG [facility] 12-19-2023 15:01-0400 Body height 157.5 cm Solo Mora MD Work Phone: [facility] 12-19-2023 15:01-0400 Body mass index (BMI) [Ratio] 34.39 kg/m2 Solo Mora MD Work Phone: [facility] 12-19-2023 15:01-0400 Body weight 85.28 kg Solo Mora MD Work Phone: [facility] 12-19-2023 15:01-0400 Diastolic blood pressure 91 mm[Hg] Solo Mora MD Work Phone: [facility] 12-19-2023 15:01-0400 Heart rate 94 /min Solo Mora MD Work Phone: [facility] 12-19-2023 15:01-0400 Systolic blood pressure 127 mm[Hg] Solo Mora MD Work Phone: [facility] 11-02-2022 13:10-0400 Body height 157.5 cm Samuel Freeman MD Work Phone: [facility] 11-02-2022 13:10-0400 Body weight 71 kg Samuel Freeman MD Work Phone: [facility] 11-02-2022 13:10-0400 Diastolic blood pressure 97 mm[Hg] Samuel Freeman MD Work Phone: [facility] 11-02-2022 13:10-0400 Heart rate 100 /min Samuel Freeman MD Work Phone: [facility] 11-02-2022 13:10-0400 Systolic blood pressure 141 mm[Hg] Samuel Freeman MD Work Phone: [facility] 08-31-2022 15:30-0400 Diastolic blood pressure 91 mm[Hg] Carol Winn MD Work Phone: [facility] 08-31-2022 15:30-0400 Heart rate 99 /min Carol Winn MD Work Phone: [facility] 08-31-2022 15:30-0400 Respiratory rate 24 /min Carol Winn MD Work Phone: [facility] 08-31-2022 15:30-0400 SaO2% (BldA) [Mass fraction] 97 % Carol Winn MD Work Phone: [facility] 08-31-2022 15:30-0400 Systolic blood pressure 140 mm[Hg] Carol Winn MD Work Phone: [facility] 08-31-2022 14:10-0400 Body height 157.5 cm Carol Winn MD Work Phone: [facility] 08-31-2022 14:10-0400 Body mass index (BMI) [Ratio] 33.84 kg/m2 Carol Winn MD Work Phone: [facility] 08-31-2022 14:10-0400 Body weight 83.92 kg Carol Winn MD Work Phone: [facility] 06-30-2022 12:40-0500 Diastolic blood pressure 85 mm[Hg] Carol Winn MD Work Phone: [facility] 06-30-2022 12:40-0500 Heart rate 70 /min Carol Winn MD Work Phone: [facility] 06-30-2022 12:40-0500 Respiratory rate 12 /min Carol Winn MD Work Phone: [facility] 06-30-2022 12:40-0500 SaO2% (BldA) [Mass fraction] 100 % Carol Winn MD Work Phone: [facility] 06-30-2022 12:40-0500 Systolic blood pressure 120 mm[Hg] Carol Winn MD Work Phone: [facility] 06-30-2022 11:18-0500 Body height 157.5 cm Carol Winn MD Work Phone: [facility] 06-30-2022 11:18-0500 Body mass index (BMI) [Ratio] 33.84 kg/m2 Carol Winn MD Work Phone: [facility] 06-30-2022 11:18-0500 Body weight 83.92 kg Carol Winn MD Work Phone: [facility] 05-27-2022 11:29-0500 Body weight 85.73 kg Carol Winn MD Work Phone: [facility] 05-27-2022 11:29-0500 Diastolic blood pressure 92 mm[Hg] Carol Winn MD Work Phone: [facility] 05-27-2022 11:29-0500 Heart rate 102 /min Carol Winn MD Work Phone: [facility] 05-27-2022 11:29-0500 Systolic blood pressure 145 mm[Hg] Carol Winn MD Work Phone: [facility] 05-03-2022 15:30-0500 Body height 158.75 cm Imad Asaad Other [employer] Other 05-03-2022 15:30-0500 Body mass index (BMI) [Ratio] 34.55 kg/m2 Imad Asaad Other [employer] Other 05-03-2022 15:30-0500 Body weight 87.09 kg Imad Asaad Other [employer] Other 05-03-2022 15:30-0500 Diastolic blood pressure 91 mm[Hg] Imad Asaad Other [employer] Other 05-03-2022 15:30-0500 Systolic blood pressure 130 mm[Hg] Imad Asaad Other [employer] Other 05-03-2022 14:47-0500 Body weight 0 kg MD Giovani Hagen Work Phone: [facility] Encounters Encounter Date Encounter Type Care Provider Facility Start: 12-30-2024 ambulatory Madhuri Aroldo MISHRA Facility:[facility] Start: 03-19-2024 End: 03-19-2024 ambulatory Kenya Sanchez SYSTEMS ARCHITECT [facility] Comment on above: Cervical radiculopathy (Primary Dx) Start: 03-11-2024 End: 03-11-2024 ambulatory Arun Brink SYSTEMS ARCHITECT [facility] Comment on above: Cervical radiculopathy (Primary Dx) Start: 03-11-2024 End: 03-11-2024 Bamboo flowsheet Arun Brink SYSTEMS ARCHITECT [facility] Start: 03-11-2024 End: 03-11-2024 Bamboo flowsheet Arun Brink SYSTEMS ARCHITECT [facility] Start: 03-07-2024 End: 03-07-2024 Refill Giovani Hagen MD Work Phone: [facility] Comment on above: Obesity (BMI 35.0-39.9 without comorbidi ty) Start: 03-06-2024 End: 03-07-2024 ambulatory ARUN HERNADEZ Not Available Comment on above: Cervical radiculopathy (Primary Dx) Anxiety; Bipolar disorder, in partial remission, most recent episode manic (CMS/HCC) Start: 02-29-2024 End: 02-29-2024 ambulatory Kenya Kelbley SYSTEMS ARCHITECT [facility] Comment on above: Cervical radiculopathy (Primary Dx) Start: 02-29-2024 End: 02-29-2024 Bamboo flowsheet Kenya Kelbley SYSTEMS ARCHITECT [facility] Start: 02-29-2024 End: 02-29-2024 Bamboo flowsheet Kenya Kelbley SYSTEMS ARCHITECT [facility] Start: 02-27-2024 End: 02-27-2024 ambulatory Kenya Kelbley SYSTEMS ARCHITECT [facility] Comment on above: Cervical radiculopathy (Primary Dx) Start: 02-27-2024 End: 02-27-2024 Bamboo flowsheet Kenya Kelbley SYSTEMS ARCHITECT [facility] Start: 02-27-2024 End: 02-27-2024 Bamboo flowsheet Kenya Kelbley SYSTEMS ARCHITECT [facility] Start: 02-20-2024 End: 02-20-2024 Refill Audrey Perez [employer] [facility] Comment on above: Attention deficit hyperactivity disorder (ADHD), predominantly inattentive type (CMS/HCC) Start: 02-14-2024 End: 02-15-2024 ambulatory Arun Hernadez SYSTEMS ARCHITECT [facility] Comment on above: Cervical radiculopathy (Primary Dx) Start: 02-14-2024 End: 02-14-2024 Bamboo flowsheet Arun Brink SYSTEMS ARCHITECT [facility] Start: 02-14-2024 End: 02-14-2024 Bamboo flowsheet Arun Brink SYSTEMS ARCHITECT [facility] Start: 02-12-2024 End: 02-12-2024 ambulatory Jumana Burgess PT Work Phone: [facility] Comment on above: Cervical radiculopathy (Primary Dx) Start: 02-12-2024 End: 02-12-2024 Bamboo flowsheet Jumana T Barbiexavi PT Work Phone: [facility] Start: 02-12-2024 End: 02-12-2024 Bamboo flowsheet Jumana T Barbiexavi PT Work Phone: [facility] Start: 02-07-2024 End: 02-07-2024 ambulatory Arun Hernadez SYSTEMS ARCHITECT [facility] Comment on above: Cervical radiculopathy (Primary Dx) Start: 02-07-2024 End: 02-07-2024 Bamboo flowsheet Arun Hernadez SYSTEMS ARCHITECT [facility] Start: 02-07-2024 End: 02-07-2024 Bamboo flowsheet Arun Hernadez SYSTEMS ARCHITECT [facility] Start: 02-06-2024 End: 02-06-2024 Office outpatient visit 25 minutes Giovani Hagen MD Work Phone: [facility] Comment on above: Localized edema (Primary Dx); Obesity (BMI 35.0-39.9 without comorbidity); Injury of right ankle, subsequent encounter; Anxiety; Bipolar disorder, in partial remission, most recent episode manic ([facility]) Start: 02-06-2024 End: 02-06-2024 ambulatory GIOVANI HAGEN Not Available Start: 02-05-2024 End: 02-05-2024 Bamboo flowsheet Jumana Mary Ellen Lupe PT Work Phone: [facility] Start: 02-05-2024 End: 02-05-2024 Bamboo flowsheet Jumana Mary Ellen Barbiexavi PT Work Phone: [facility] Start: 02-05-2024 End: 02-05-2024 ambulatory Jumana Burgess PT Work Phone: [facility] Comment on above: Cervical radiculopathy (Primary Dx) Start: 01-29-2024 End: 01-29-2024 Telephone encounter Jumana Burgess PT Work Phone: [facility] Comment on above: PT Initial Eval (Tried to contact to [facility] PT Eval for cervical radiculopathy; but had to lm requesting call back.); Call Back (She contacted and we scheduled PT Eval 02/04 w/ Jumana Burgess, PT.) Start: 01-22-2024 End: 01-22-2024 ambulatory DARWIN STARR Not Available Start: 01-09-2024 End: 01-09-2024 ambulatory RUGEN M HIEU Not Available Start: 12-28-2023 End: 12-28-2023 Patient encounter procedure BHAVESH DEJESUS [facility] Start: 12-28-2023 End: 12-29-2023 ambulatory BHAVESH DEJESUS Facility:[facility] Comment on above: [employer]io Start: 12-26-2023 End: 12-26-2023 ambulatory RUGEN M HIEU Not Available Start: 12-19-2023 End: 12-21-2023 Orders Only Solo Mora MD Work Phone: Cardiology Comment on above: Syncope and collapse (Primary Dx) Event (ZIO PATCH) Syncope, unspecified syncope type (Primary Dx) Start: 12-18-2023 End: 02-01-2024 Telephone encounter Radha Kendrick [facility] Comment on above: Lab results Start: 12-04-2023 End: 12-04-2023 ambulatory RUGEN M HIEU Not Available Start: 12-04-2023 Patient encounter status Jumana Burgess PT Work Phone: [facility] Start: 11-02-2023 Orders Only Solo Mora MD Work Phone: Cardiology Comment on above: Gastroparesis (Primary Dx) Patient Update (Refe rral & Records are in Care Everywhere) Start: 10-03-2023 End: 10-03-2023 ambulatory RUGEN M HIEU Not Available Start: 09-07-2023 End: 09-07-2023 ambulatory CADE WILCOX Not Available Start: 05-08-2023 End: 05-08-2023 ambulatory RUGEN M HIEU Not Available Start: 04-18-2023 End: 04-18-2023 ambulatory GIOVANI HAGEN Not Available Start: 04-06-2023 End: 04-06-2023 ambulatory AKUA Kendrick DAVIDRADHA Not Available Start: 03-22-2023 End: 03-24-2023 Evaluation and management of inpatient MARY Culver [facility] Start: 03-20-2023 ambulatory Carol Winn MD Work [...] End: 10-26-2022 ambulatory Imad Asaad Facility:[facility] Start: 10-26-2022 End: 10-26-2022 ambulatory MD Giovani Hagen Work Phone: [facility] Work Phone: Start: 10-26-2022 End: 10-26-2022 Patient encounter procedure MD Giovani Hagen Work Phone: [facility] [place] Work Phone: Start: 10-18-2022 ambulatory Maria Dolores Coery DO Work Phone: Gastroenterology Start: 10-18-2022 Telephone encounter Maria Dolores Corey DO Work Phone: Gastroenterology Comment on above: Medication Preauthorization ([employer]) Results Start: 10-17-2022 End: 10-18-2022 ambulatory [facility] Start: 10-17-2022 End: 10-17-2022 Patient encounter procedure [facility] Work Phone: Gastroenterology Comment on above: Gastroparesis (Primary Dx) Start: 09-12-2022 ambulatory [facility] WINN [facility] Start: 09-12-2022 End: 09-12-2022 Subsequent hospital visit by physician [facility] Work Phone: [facility] Radiology Molecular Comment on above: Nausea [R11.0] Start: 08-31-2022 End: 08-31-2022 Subsequent hospital visit by physician Carol Winn MD Work Phone: Ambulatory Surgery Comment on above: PUD (peptic ulcer disease) [K27.9] Start: 08-24-2022 Telephone encounter Nurse [facility] Work Phone: Gastroenterology Comment on above: Appointment Start: 07-08-2022 End: 07-08-[address] MADHURI MISHRA . Facility:[facility] Start: 07-06-2022 End: 07-07-[address] MADHURI MISHRA . Facility:[facility] Start: 07-05-2022 End: 07-05-2022 Patient encounter procedure Madhuri MISHRA [facility] Start: 07-04-2022 Orders Only Carol Winn MD Work Phone: Gastroenterology Start: 06-30-2022 End: 06-30-2022 Subsequent hospital visit by physician Carol Winn MD Work Phone: Ambulatory Surgery Comment on above: Bilious vomiting with nausea [R11.14] Start: 06-29-2022 End: 06-30-[address] MADHURI MISHRA . Facility:[facility] Start: 06-29-2022 End: 06-29-2022 Lab Drop off Madhuri MISHRA [facility] Start: 06-23-2022 ambulatory Carol Winn MD Work Phone: Gastroenterology Comment on above: EGD instructions Start: 06-23-2022 E-mail encounter from caregiver Carol Winn MD Work Phone: [facility] Start: 06-16-2022 ambulatory [facility] Gastroenterology Comment on above: Question regarding US ABD RT UPPER QUADR ANT Start: 06-15-2022 ambulatory CAROL WINN Facility[facility] Start: 06-15-2022 End: 06-15-2022 Subsequent hospital visit by physician [facility] Work Phone: [facility] Radiology Ultrasound Comment on above: Liver lesion [K76.9] Start: 06-14-2022 Orders Only Carol Winn MD Work Phone: Ambulatory Surgery Comment on above: Liver lesion (Primary Dx) Results Start: 06-10-2022 ambulatory Diamond Pycraft RT(R) Radiology Ct Scan Comment on above: Radiology CT Start: 06-10-2022 Patient encounter procedure Diamond Pycraft RT(R) [facility] Start: 06-10-2022 End: 06-10-2022 Subsequent hospital visit by physician [facility] Rad[facility] Ct Scan Comment on above: Bilious vomiting with nausea [R11.14] Start: 05-27-2022 ambulatory CAROL WINN [facility] Start: 05-27-2022 End: 05-27-2022 Subsequent hospital visit by physician [employer] Work Phone: [facility] Radiology General Comment on above: SOB (shortness of breath) [R06.02] Start: 05-27-2022 End: 05-27-2022 Patient encounter procedure Carol Winn MD Work Phone: Gastroenterology Comment on above: Fatty liver (Primary Dx); Bilious vomiting with nausea; Right sided abdominal pain; Nausea; History of diverticulitis; SOB (shortness of breath) Start: 05-13-2022 End: 05-13-2022 ambulatory Imad Asaad Facility:[facility] Start: 05-13-2022 End: 05-13-2022 ambulatory MD Giovani Hagen Work Phone: [facility] Work Phone: Start: 05-13-2022 End: 05-13-2022 Patient encounter procedure MD Giovani Hagen Work Phone: [facility] Work Phone: Start: 05-03-2022 End: 05-04-2022 ambulatory IMAD ASAAD [facility] [employer] Other Start: 05-03-2022 Office consultation new/estab patient 60 min Imad Asaad [facility] Start: 04-20-2022 End: 04-20-[address] AURORA IRBY . Facility:[facility] Start: 04-06-2022 End: 04-07-[address] GIOVANI HAGEN Facility:[facility] Start: 12-21-2021 End: 12-22-[address] AURORA IRBY . Facility:[facility] Start: 12-10-2021 End: 12-10-2021 Subsequent hospital visit by physician [facility] Ultrasound Comment on above: Elevated LFTs [R79.89] [...] 11-06-2018 End: 11-09-2018 Patient encounter procedure SHIVANI MONTEIRO [facility] Procedures Date Procedure Procedure Detail Performing Clinician Start: 04-18-2023 History of cholecystectomy History of cholecystectomy Jumana Burgess PT Work Phone: Start: 10-26-2022 Ultrasonography of liver MD [facility] [place] Work Phone: Start: 09-23-2022 H/O: hysterectomy History [...] to present section Madhuri SERRANO Cholecystectomy BHAVESH LEO Hysterectomy Madhuri MISHRA Plan of Treatment Date Care Activity Detail Author Start: 12-23-2024 Influenza vaccination Influenza Vaccine (#1) [facility] Comment on above: Postponed from 12/24/2023 (Other Medical Reasons) Start: 03-27-2024 End: 03-27-2024 ambulatory 03/27/2024 4:00 PM EST Treatment [facility] [address] [place] [id number] Jumana Burgess, PT [address] [facility] [address] [place] [address] [facility] Start: 03-25-2024 End: 03-25-2024 ambulatory 03/25/2024 4:00 PM EST Treatment [facility] [address] [place] [address] Arun Hernadez, SYSTEMS ARCHITECT [facility] Start: 03-20-2024 End: 03-20-2024 Patient encounter procedure 03/20/2024 4:00 PM EST Office Visit [facility] [address] [place] [id number] Darwin Starr, DO [address] [place] [address] [facility] Start: 03-19-2024 End: 03-19-2024 ambulatory 03/19/2024 4:00 PM EST Treatment [facility] [address] [place] [id number] Kenya Sanchez, SYSTEMS ARCHITECT [facility] Start: 03-13-2024 End: 03-13-2024 ambulatory 03/13/2024 4:30 PM EST Treatment [facility] [address] [facility] [address] [place] [address] BarbieJumana hurley, PT [address] [facility] [place] [address] [facility] Start: 03-11-2024 End: 03-11-2024 ambulatory [facility] Comment on above: Arrived Start: 03-06-2024 End: 03-06-2024 ambulatory [facility] Start: 03-04-2024 End: 03-04-2024 ambulatory 03/04/2024 9:00 AM EST Treatment [facility] [address] [facility] [address] [place] [address] Arun Hernadez PTA [facility] Start: 02-29-2024 End: 02-29-2024 ambulatory [facility] Comment on above: Arrived Start: 02-27-2024 End: 02-27-2024 ambulatory [facility] Comment on above: Arrived Start: 02-21-2024 End: 02-21-2024 ambulatory 02/21/2024 4:30 PM EDT Treatment [facility] [address] [facility] [place] [address] Kenya Sanchez SYSTEMS ARCHITECT [facility] Start: 02-14-2024 End: 02-14-2024 ambulatory [facility] Start: 02-13-2024 End: 02-13-2024 Patient encounter procedure Cardiology Comment on above: Dx: Syncope, unspecified syncope type [R 55] Start: 02-13-2024 End: 02-13-2024 ambulatory 02/13/2024 2:00 PM EDT Results Only Cardiology [address] [place] [address] Dx: Syncope, unspecified syncope type [R55] Cardiology Comment on above: Dx: Syncope, unspecified syncope type [R 55] Start: 02-12-2024 End: 02-12-2024 ambulatory [facility] Comment on above: Arrived Start: 02-07-2024 End: 02-07-2024 ambulatory [facility] Comment on above: Arrived Start: 02-05-2024 End: 02-05-2024 ambulatory [facility] Comment on above: Cervical radiculopathy Start: 12-24-2023 Covid-19 Vaccine ( season) Covid-19 Vaccine () [facility] Start: 12-24-2023 Covid-19 Vaccine () Covid-19 Vaccine () [facility] Start: 12-24-2023 Influenza vaccination Influenza Vaccine (#1) [facility] Start: 12-19-2023 End: 12-19-2023 ambulatory 12/19/2023 2:15 PM EDT Results Only Cardiology [address] [place] [address] Exertional Syncope. Referring: Dr. Shilo Dillon Cardiology Comment on above: Exertional Syncope. Referring: Dr. Shilo Dillon Start: 12-19-2023 End: 12-19-2023 Patient encounter procedure Cardiology Comment on above: Exertional Syncope. Referring: Dr. Shilo Dillon Start: 04-24-2023 Behavioral Health Screening Behavioral Health Screening [facility] Start: 12-23-2022 Covid-19 Vaccine () Covid-19 Vaccine () [facility] Start: 12-23-2022 Influenza vaccination [facility] Start: 05-13-2022 [facility] Start: 04-24-2022 DEPRESSION ASSESSMENT DEPRESSION ASSESSMENT [facility] Start: 12-28-2021 COVID-19 VACCINE (4 - Booster for Pfizer series) COVID-19 VACCINE (4 - Booster for Pfizer series) [facility] Start: 12-28-2021 COVID-19 VACCINE (4 - Pfizer series) COVID-19 VACCINE (4 - Pfizer series) [facility] Start: 12-23-2021 Influenza vaccination INFLUENZA (#1) [facility] Start: 02-06-2020 Urine microalbumin profile DTaP,Tdap,Td Vaccine (6 - Td or Tdap) [facility] Start: 2018 HPV TESTING HPV TESTING [facility] Start: 2009 PAP TESTING PAP TESTING [facility] Start: 2009 Screening for malignant neoplasm of cervix Cervical Cancer Screening [facility] Start: 09-29-2007 Urine microalbumin profile DTAP,TDAP,TD (1 - Tdap) [facility] Start: 11-30-2006 HPV Vaccine (2 - 3-dose series) HPV Vaccine (2 - 3-dose series) [facility] Start: 2006 Anxiety Screening Anxiety Screening [facility] Start: 2006 Depression Screening Depression Screening [facility] Start: 2006 HEPATITIS C SCREENING HEPATITIS C SCREENING [facility] Start: 2006 Hepatitis C screening Hepatitis C Screening [facility] Start: 2006 HIV SCREENING HIV SCREENING [facility] Start: 2006 HIV screening HIV Screening [facility] Start: 1988 HEPATITIS B (1 of 3 - 3-dose series) HEPATITIS B (1 of 3 - 3-dose series) [facility] Actin smooth muscle IgG Ab [Units/volume] in Serum [facility] Alpha 1 antitrypsin [Mass/volume] in Serum or Plasma [facility] Alpha 1 antitrypsin phenotyping [Identifier] in Serum or Plasma by Immunofixation [facility] Ceruloplasmin [Mass/ volume] in Serum or Plasma [facility] End: 06-26-2023 Ct abdomen & pelvis w/o contrast material CT ABD/PEL WO IVCON Radiology Routine Bilious vomiting with nausea Right sided abdominal pain Nausea 1 Occurrences starting 05/27/2022 until 06/26/2023 [facility] Work Phone: Comment on above: 1 Occurrences starting 05/27/2022 until 06/26/2023 End: 11-01-2024 ECG COMPLETE ECG COMPLETE ECG Routine Gastroparesis 1 Occurrences starting 11/02/2023 until 11/01/2024 [facility] Work Phone: Comment on above: 1 Occurrences starting 11/02/2023 until 11/01/2024 End: 12-18-2024 ECG COMPLETE ECG COMPLETE ECG Routine Syncope and collapse 1 Occurrences starting 12/19/2023 until 12/18/2024 [facility] Work Phone: Comment on above: 1 Occurrences starting 12/19/2023 until 12/18/2024 End: 05-27-2023 EGD DIAGNOSTIC EGD DIAGNOSTIC Endoscopy Routine Bilious vomiting with nausea Right sided abdominal pain 1 Occurrences starting 05/27/2022 until 05/27/2023 [facility] Work Phone: Comment on above: 1 Occurrences starting 05/27/2022 until 05/27/2023 Electrogastrography dx transcutaneous EGG (ELECTROGASTROGRAPHY) Procedures Routine Gastroparesis Ordered: 09/14/2022 [facility] Work Phone: Comment on above: Ordered: 09/14/2022 Hepatitis A virus Ab [Presence] in Serum by Immunoassay [facility] HFE gene mutations f ound [Identifier] in Blood or Tissue by Molecular genetics method Nominal [facility] Homogenous nuclear A b pattern [Titer] in Serum [facility] IgG [Mass/volume] in Serum or Plasma [facility] Lipoprotein a [Moles /volume] in Serum or Plasma [facility] Mitochondria M2 IgG Ab [Units/volume] in Serum [facility] Nuclear Ab [Titer] in Serum [facility] OUTSIDE VENDOR CARDI AC OUTPATIENT EXTENDED RHYTHM RECORDING (WITHOUT TELEMETRY) OUTSIDE VENDOR CARDIAC OUTPATIENT EXTENDED RHYTHM RECORDING (WITHOUT TELEMETRY) Holter Routine Syncope, unspecified syncope type Ordered: 12/19/2023 [facility] Comment on above: Ordered: 12/19/2023 End: 12-18-2024 STRESS ECHO TREADMILL STRESS ECHO TREADMILL Cardiology Routine Syncope, unspecified syncope type 1 Occurrences starting 12/19/2023 until 12/18/2024 [facility] Work Phone: Comment on above: 1 Occurrences starting 12/19/2023 until 12/18/2024 End: 07-14-2023 Us abdominal real time w/image limited US ABD RT UPPER QUADRANT Radiology Routine Liver lesion 1 Occurrences starting 06/14/2022 until 07/14/2023 [facility] Work Phone: Comment on above: 1 Occurrences starting 06/14/2022 until 07/14/2023 [facility] Immunizations Immunization Date Immunization Notes Care Provider Bernadette vickers 11-02-2021 SARS-CoV-2 mRNA (qhehytdgvmh-kfip-baeat se) vaccine Madhuri MISHRA [facility] 04-29-2021 SARS-CoV-2 (COVID-19 ) mRNA BNT-162b2 vax Madhuri MISHRA [facility] 03-03-2021 SARS-CoV-2 (COVID-19 ) mRNA BNT-162b2 vax Madhuri MISHRA [facility] Comment on above: Result Comment: 2022: TPVAL 02-09-2021 influenza virus vaccine, unspecified formulation Madhuricecille MISHRA [facility] 02-09-2021 influenza, injectabl e, quadrivalent, preservative free Jumana Burgess PT Work Phone: [facility] 03-16-2020 influenza virus vaccine, unspecified formulation Madhuri MISHRA [facility] 03-16-2020 Influenza, injectabl e, Madin Imnaha Canine Kidney, preservative free, quadrivalent Jumana Lupe PT Work Phone: [facility] 01-08-2018 influenza virus vaccine, unspecified formulation Madhuricecille MISHRA [facility] 01-08-2018 influenza, injectabl e, quadrivalent, contains preservative Jumana Lupe PT Work Phone: [facility] 01-08-2018 influenza, injectabl e, quadrivalent, preservative free Jumana Lupe PT Work Phone: [facility] 02-01-2017 influenza virus vaccine, unspecified formulation Madhuri MISHRA [facility] 02-01-2017 Influenza, injectabl e, Madin Jenn Canine Kidney, preservative free, quadrivalent Jumana Burgess PT Work Phone: [facility] 03-25-2016 influenza virus vaccine, unspecified formulation Madhuri MISHRA [facility] 03-25-2016 influenza, injectabl e, quadrivalent, preservative free Jumana Burgess PT Work Phone: [facility] 02-05-2010 tetanus toxoid, redu rolanda diphtheria toxoid, and acellular pertussis vaccine, adsorbed Madhuri Life360 [facility] 01-05-2007 hepatitis B vaccine, pediatric or pediatric/adolescent dosage Madhuri Life360 [facility] 11-02-2006 hepatitis B vaccine, pediatric or pediatric/adolescent dosage Madhuri Life360 [facility] 11-02-2006 HPV, unspecified formulation Madhuri Life360 [facility] 11-02-2006 human papilloma viru s vaccine, quadrivalent Jumana Burgess PT Work Phone: [facility] 11-02-2006 meningococcal ACWY vaccine, unspecified formulation Madhuri MISHRA [facility] 11-02-2006 meningococcal polysaccharide (groups A, C, Y and W-135) diphtheria toxoid conjugate vaccine (MCV4P) Jumana Burgess PT Work Phone: [facility] 02-20-1998 hepatitis B vaccine, pediatric or pediatric/adolescent dosage Madhuri Life[employer] [facility] 12-28-1993 diphtheria, tetanus toxoids and pertussis vaccine Jumana Valentinton PT Work Phone: [facility] 12-07-1992 diphtheria, tetanus toxoids and pertussis vaccine Jumana Valentinton PT Work Phone: [facility] 12-07-1992 measles, mumps and rubella virus vaccine Madhuri MISHRA [facility] 12-07-1992 trivalent poliovirus vaccine, live, oral Jumana Valentinton PT Work Phone: [facility] 06-09-1992 diphtheria, tetanus toxoids and pertussis vaccine Jumana Burgess PT Work Phone: [facility] 06-09-1992 measles, mumps and rubella virus vaccine Madhuri MISHRA [facility] 06-09-1992 trivalent poliovirus vaccine, live, oral Jumana Valentinton PT Work Phone: [facility] 10-31-1990 varicella virus vaccine Pataroldo MISHRA [facility] 06-20-1990 diphtheria, tetanus toxoids and pertussis vaccine Jumana Burgess PT Work Phone: [facility] 05-21-1990 trivalent poliovirus vaccine, live, oral Jumana Barbieton PT Work Phone: [facility] 01-10-1989 trivalent poliovirus vaccine, live, oral Jumana Blackston PT Work Phone: [facility] NEGATED: Highlighted row has not occurred!05-01-2019 influenza virus vaccine, live, attenuated, for intranasal use Madhuricecille MISHRA [facility] NEGATED: Highlighted row has not occurred!04-03-2019 influenza virus vaccine, live, attenuated, for intranasal use Madhuri MISHRA [facility] Payers Date Payer Category Payer Private Health Insurance [employer] [id number] 2022 Self-pay [id number] 2020 Unknown [id number] [id number]. [id number] 1988 Unknown [id number] 2.16.840.1.005918.3.579.2. 182 1988 Unknown [id number] 2.16.840.1.789797.3.579.2. 593 1988 Unknown [id number] 2.16.840.1.812346.3.579.2. 593 1988 Unknown [id number] 2.16.840.1.296894.3.579.2. 593 1988 Unknown [id number] 2.16.840.1.116696.3.579.2. 593 1988 Unknown [id number] 2.16.840.1.834912.3.579.2. 593 1988 Unknown [id number] 2.16.840.1.527498.3.579.2. 593 1988 Unknown [id number] 2.16.840.1.322453.3.579.2. 593 1988 Unknown [id number] 2.16.840.1.619012.3.579.2. 593 1988 Unknown [id number] 2.16.840.1.971969.3.579.2. 593 1988 Unknown [id number] 2.16.840.1.046543.3.579.2. 593 1988 Unknown [id number] 2.16.840.1.895873.3.579.2. 593 1988 Unknown [id number] 2.16.840.1.411125.3.579.2. 593 1988 Unknown [id number] 2.16.840.1.324259.3.579.2. 593 1988 Unknown [id number] 2.16840.1.371766.3.579.2. 177 1988 Unknown [id number] 2.840.1.731777.3.579.2. 727 1988 Unknown [id number] 2.16840.1.706725.3.579.2. 727 1988 Unknown [id number] 2.16840.1.881074.3.579.2. 1259 1988 Unknown [id number] 2.16840.1.268346.3.579.2. 1259 1988 Unknown [id number] 2.16840.1.696511.3.579.2. 1259 1988 Unknown [id number] 2.16840.1.527407.3.579.2. 1259 1988 Unknown [id number] 2.16840.1.405565.3.579.2. 1259 1988 Unknown [id number] 2.16840.1.878211.3.579.2. 1259 1988 Unknown [id number] 2.16840.1.314588.3.579.2. 1259 1988 Unknown [id number] 2.16.840.1.786819.3.579.2. 9 1988 Unknown [id number] 2.16.840.1.261330.3.579.2. 1258 1988 Unknown [id number] 2.16.840.1.292627.3.579.2. 1258 1988 Unknown [id number] 2.16.840.1.666505.3.579.2. 1258 1988 Unknown [id number] 2.16.840.1.783574.3.579.2. 1258 1988 Unknown [id number] 2.16840.1.468838.3.579.2. 1258 1988 Unknown [id number] 2.16840.1.873891.3.579.2. 1258 1988 Unknown [id number] 2.16840.1.387366.3.579.2. 1258 1988 Unknown [id number] 2.16840.1.107816.3.579.2. 1258 1988 Unknown [id number] 2.16840.1.005214.3.579.2. 1258 1988 Unknown [id number] 2.16840.1.420190.3.579.2. 9 1959 Unknown [id number] Unknown 100 [facility] [id number] Unknown [id number] 2.16840.1.124316.3.579.2. 531 Unknown [id number] 2.840.1.588289.3.579.2. 531 Social History Date Type Detail Facility Tobacco smoking stat [facility] Unknown if ever smoked [facility] Work Phone: Start: 1990 Sex Assigned At Female [facility] Start: 03-28-2019 End: 02-03-2023 Tobacco smoking status NHIS Never smoked tobacco [facility] Start: 05-27-2022 End: 05-01-2023 Tobacco use and exposure Smokeless tobacco non-user [facility] Start: 05-27-2022 End: 02-06-2024 Alcohol intake Current drinker of alcohol (finding) [facility] Start: 03-28-2019 Alcohol Comment socially [facility] Start: 1990 Sex Assigned At Not on file [facility] Start: 11-02-2022 End: 04-18-2023 Sex Assigned At [facility] Start: 06-29-2022 End: 05-01-2023 Tobacco smoking status Ex-smoker (finding) [facility] Tobacco smoking status Never [facility] Start: 11-02-2022 End: 04-18-2023 History of Social function [facility] Start: 06-08-2021 Gender identity Identifies as female gender (finding) [facility] Start: 11-16-2021 End: 11-26-2021 Exposure to SARS-CoV-2 (event) Not sure [facility] History of tobacco use Current smoker [facility] Within the last year , have you been afraid of your partner or ex-partner? No [facility] Do you belong to any clubs or organizations such as jehovah's witness groups, unions, fraternal or athletic groups, or [...] 12-28-2023 Functional Status N/A [facility] 06-30-2022 Functional Status N/A [facility] Clinical Notes 05-03-2022 to 03-07-2024 Telephone Encounter - VINH Roque - 03/07/2024 11:20 AM ESTTelephone Encounter - VINH Roque - 03/07/2024 11:20 AM ESTTelephone Encounter - VINH Roque - 03/07/2024 9:14 AM EST Note Date & Type Note Facility 03-07-2024 Telephone encounter Note [facility] reviewed, Rx sent into patient's pharmacy. [facility] 03-07-2024 Miscellaneous Notes [facility] reviewed, Rx sent into patient's pharmacy. documented in this encounter [facility] 03-07-2024 Telephone encounter Note [facility] reviewed, Rx sent into patient's pharmacy. [facility] 03-07-2024 Miscellaneous Notes [facility]AR[facility] reviewed, Rx sent into patient's pharmacy. ALPRAZolam (Xanax) 0.5 MG tablet [facility] documented in this encounter [facility] 03-06-2024 History of Present illness Narrative Physical [...] to be instructed in home exercise program. [employer] Goals: To be met in 10 weeks [...] 2:57 PM EST documented in this encounter [facility] 03-06-2024 Telephone encounter Note ALPRAZolam (Xanax) 0.5 MG tablet [facility] 02-12-2024 History of Present illness Narrative Physical [...] to be instructed in home exercise program. Long-Term Goals: To be met in 10 weeks [...] sign below. Date: documented in this encounter [facility] 02-06-2024 History of Present illness Narrative [...] DAY IN THE MORNING 30 tablet 2 Ixgxjezsskg-Dvgfpzvju-Rpsgmo 100-62.5-25 MCG/ACT aerosol powder INHALE 1 PUFF [...] CT ANGIOGRAM CHEST 07/30/2018 CT ANGIOGRAM CHEST [facility] EGD 06/30/2022 Normal hypopharynx, [...] follow-ups on file. documented in this encounter [facility] 01-29-2024 Telephone encounter Note 25 visits out to 10/21/24 [facility] 01-29-2024 Miscellaneous Notes 25 visits out to 10/21/24 documented in this encounter [facility] 12-28-2023 Hospital Discharge instructions Patient Education 12/28/2023 15:59:41 Kidney Stones, Ccjr-gs-Knft Kidney Stones Kidney stones are rock-like masses [...] Follow these instructions at home: Medicines Take qqac-znm-nazikzn and prescription medicines only as told by [...] provider. Document Revised: 12/02/2022 Document Reviewed: 12/02/2022 [employer] Patient Education 2023 [employer]. Follow Up Care 11/07/2022 15:52:12 With:BHAVESH DEJESUS PA-C, URL Address: When:1 year [facility] 12-28-2023 Note Patient Education Urology Kidney [...] these instructions at home: Medicines ? Take ytrd-sne-mavfqhd and prescription medicines only as told by [...] provider. Document Revised: 12/02/2022 Document Reviewed: 12/02/2022 [employer] Patient Education ? 2023 [employer]esh [facility] 12-19-2023 Note Education (CARDMN) ---- BELGICA HARPER ([id number]) 1990 F Date Time Provider Department 12/19/23 [...] Encounter Status:Closed by GEGE LEMA on 12/19/23 [facility] 12-19-2023 Note HNO ID: [id number] Author: GEGE LEMA Tech Service: ? Author Type: Technologist Type: Progress Notes Filed: 12/19/2023 15:45 Note Text: EVENT MONITOR DISPOSABLE PATCH INSTRUCTIONS Patient Name: Belgica Harper [facility] Number: [id number] Skin prepped and cleansed with alcohol Patch secured to prepped area Monitor Activated Serial #: [id number] Patient Instructed: Prescribed order timeframe Bathing guidelines Usage of event button and diary documentation Return of monitor at the end of prescribed order Call with problems [phone] or [phone]. [phone] Patient expresses a good understanding of instructions Tristian Pretty [facility] 12-19-2023 History of Present illness Narrative EVENT MONITOR DISPOSABLE PATCH INSTRUCTIONS Patient Name: Belgica Harper [facility] Number: [id number] Skin prepped and cleansed with alcohol Patch secured to prepped area Monitor Activated Serial #: [id number] Patient Instructed: Prescribed order timeframe Bathing guidelines Usage of event button and diary documentation Return of monitor at the end of prescribed order Call with problems [phone] or [phone]. [phone] Patient expresses a good understanding of instructions Tristian Pretty documented in this encounter [facility] 12-19-2023 Instructions Solo Mora MD - 12/19/2023 3:27 PM EDT Next Steps: 1). Please wear a heart monitor for 2 weeks and mail it back 2). Please get a stress echo done and follow up with me afterwards documented in this encounter [facility] 12-19-2023 History of Present illness Narrative Images from the original note were not included. [facility] Department of Cardiovascular Medicine SECTION OF CARDIAC PACING and ELECTROPHYSIOLOGY OUTPATIENT VISIT DATE December 19, 2023 OUTPATIENT VISIT TYPE NEW PRIMARY CARE PHYSICIAN: Giovani Hagen MD [address] [place] [address] CHIEF COMPLAINT: Syncope, cardiac evaluation for family [...] had any workup done including Stress Echo, gambling monitor or 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 Reports symptoms of [...] had any workup done including Stress Echo, gambling monitor or 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 PLAN AND RECOMMENDATIONS: - Exercise stress echo for exertional syncope to rule out structural or arrhythmic cause - 2 week tina Fitzgerald personally interviewed, confirmed and edited the above information as obtained by others. CONTACT INFORMATION: Solo Mora MD documented in this encounter [facility] 12-19-2023 Note HNO ID: [id number] Author: SOLO MORA MD Service: ? Author Type: Physician Type: Progress Notes Filed: 12/28/2023 02:49 Note Text: [facility] Department of Cardiovascular Medicine SECTION OF CARDIAC PACING and ELECTROPHYSIOLOGY OUTPATIENT VISIT DATE December 19, 2023 OUTPATIENT VISIT TYPE NEW PRIMARY CARE PHYSICIAN: Giovani Hagen MD [address] [place] [address] CHIEF COMPLAINT: Syncope, cardiac evaluation for family [...] had any workup done including Stress Echo, gambling monitor or 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 Reports symptoms of [...] for syncopal episod (more content not included)... [facility] 12-19-2023 Note HNO ID: [id number] Author: SOLO MORA MD Service: ? Author [...] correspond to sinus tachycardia Solo Mora MD [facility] 12-18-2023 Telephone encounter Note Patient had labwork performed on 12-13-2023. Dr. Du wanted you to be aware so you could review them. [facility] 12-18-2023 Miscellaneous Notes Patient had labwork performed on 12-13-2023. Dr. Du wanted you to be aware so you could review them. documented in this encounter [facility] 11-02-2023 Telephone encounter Note Images from the original note were not included. Records are in Care Everywhere: EP Referral- 11/01/23 (Dr. Shilo Dillon/Cardiology) Criss Mccrary [facility] 11-02-2023 Miscellaneous Notes Images from the original note were not included. Records are in Care Everywhere: EP Referral- 11/01/23 (Dr. Shilo Dillon/Cardiology) Criss Mccrary documented in this encounter [facility] 03-20-2023 Miscellaneous Notes Patient is a [...] transfer. documented in this encounter [facility] 11-03-2022 Miscellaneous Notes PA for Ibsrela initiated electronically. Awaiting response [facility] ID# [id number] Rx BIN [id number] Rx PCN CLAIMCR Rx Grp STOH documented in this encounter [facility] 11-02-2022 History of Present illness Narrative Behavioral Medicine [facility] Sylvester Name: Belgica Harper MR#: [id number] Date: 11/02/2022 Time: 1 hour Referred by: [...] She was given the website for the [facility] and shown the relaxation recordings with the recommendation to practice this and the rationale behind their use. Follow-up with Dr. Conteh was discussed as well as encouraging her to continue her PTSD work with a local trauma therapist. Soraida Zhang, Ph.D. documented in this encounter [facility] 11-02-2022 History of Present illness Narrative Assessment ASSESSMENT 32 year old female with medical refractory gastroparesis. PLAN I discussed surgical therapy for gastroparesis in detail. Belgica Harper is candidate for further medical treatment. Needs to stop Wegovy May consider for wireless motility capsule study Constipation medication change per Dr. 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 Maria Dolores Corey DO P Sp Ddsi Clinical Pool Please ask her to see DYE MACHINE OPERATOR to r/o endometriosis there was a very slight abnormal wave (not strong) suggesting its possible Called and spoke with the patient and relayed providers message. documented in this encounter [facility] 10-18-2022 Miscellaneous Notes PA initiated via [employer]. Await response. Covered: Retail, Mail Order Unknown: Specialty, Long-Term Care Group ID: [id number] Group name: BIN: [id number] PCN: CLAIMCR documented in this encounter [facility] 10-18-2022 History of Present illness Narrative Images from the original note were not included. documented in this encounter [facility] 10-17-2022 Nurse Note EGG completed. Able to drink the 500 ml of water without any difficulty. documented in this encounter [facility] 09-12-2022 Note HNO ID: [id number] Author: Shivani Vasquez RT(R) Service: Nuclear Medicine Author Type: Transfusion Aide Type: Progress Notes Filed: 09/12/2022 2:46 PM [...] 10:11AM PATIENT DISCHARGED TO: Ambulatory patient, left CT department area. A Diagnostic radioactive procedure has taken place, with no further precautions necessary other than routine body substance precautions. More information regarding radiation safety can be found using this link: [email or web address] %[email or web address]-%20Diagnostic%20Nuclear%20Medicine %20Procedures.[email or web address] SIGNATURE: Shivani Vasquez RT(R) PATIENT NAME: Belgica Harper DATE: September 12, 2022 TIME: 2:45 PM PAGER/CONTACT #: [facility] 09-12-2022 History of Present illness Narrative [...] 10:11AM PATIENT DISCHARGED TO: Ambulatory patient, left CT department area. A Diagnostic radioactive procedure has taken place, with no further precautions necessary other than routine body substance precautions. More information regarding radiation safety can be found using this link: [email or web address]% 20-%20Diagnostic%20Nuclear%20Medicine% 20Procedures.[email or web address] SIGNATURE: RT Amber(R) PATIENT NAME: Belgica Harper DATE: September 12, 2022 TIME: 2:45 PM PAGER/CONTACT #: documented in this encounter [facility] 08-31-2022 Nurse Note POST OP LEARNING RESPONSE INSTRUCTION PROVIDED TO: Patient and family member METHOD OF INSTRUCTION: Written instruction - handouts Verbal instruction PATIENT / FAMILY RESPONSE: Information received as demonstrated by interest and questions FOLLOW-UP PLAN: Patient instructed to call with any further issues SUPPLEMENTAL MATERIAL: None REFERRAL (RECOMMENDATION): None Electronically Signed By: Wilma Limon RN In Department: AMBULATORY SURGERY [facility] 08-31-2022 Nurse Note POST OP LEARNING [...] Department: AMBULATORY SURGERY documented in this encounter [facility] 08-31-2022 History and physical note SEDATION [...] DATE: August 31, 2022 TIME: 2:51 PM [facility] 08-31-2022 History and physical note SEDATION [...] TIME: 2:51 PM documented in this encounter [facility] 08-31-2022 Nurse Note PRE OP LEARNING ASSESSMENT PROCEDURE/SURGERY: GI PROCEDURES: EGD READINESS TO LEARN COGNITIVE ABILITY: Alert and oriented MOTIVATION TO LEARN: Interested FAMILY SUPPORT: Unable to assess - Family not present PATIENT LEARNS BEST BY: Written Instruction - Hand-outs Verbal Instruction FACTORS AFFECTING LEARNING: None PHYSICAL LIMITATIONS AFFECTING LEARNING: None Electronically Signed By: Ayleen Aj RN In Department: AMBULATORY SURGERY [facility] 08-24-2022 Miscellaneous Notes Lm to confirm procedure for 08-31-22 documented in this encounter [facility] 07-05-2022 Hospital Discharge instructions Patient Education [...] With:Madhuri MISHRA Address: [facility] [address] [place] [address] Business (1) When:11/04/2022 08:39:10 Comments:With a stone metabolic work-up [facility] 06-30-2022 Nurse Note Pt denies any nausea at this time. Pt given 3 oz of apple juice per request and tolerating at this time. Pt denies any other s/s at this time, smiling in conversation, 500ml of Nacl completed as well. Pt reports she feels ready to go home. [facility] 06-30-2022 Nurse Note Pt denies any [...] Department: AMBULATORY SURGERY documented in this encounter [facility] 06-30-2022 Nurse Note Pt c/o nausea [...] Pt resting in bed at this time. [facility] 06-30-2022 Nurse Note POST OP LEARNING [...] By: Wilma Limon In Department: AMBULATORY SURGERY [facility] 06-30-2022 History and physical note SEDATION [...] DATE: June 30, 2022 TIME: 11:35 AM [facility] 06-30-2022 History and physical note SEDATION [...] TIME: 11:35 AM documented in this encounter [facility] 06-30-2022 Nurse Note PRE OP LEARNING [...] Elissa Kwok RN In Department: AMBULATORY SURGERY [facility] 06-23-2022 Miscellaneous Notes Confirmed procedure for 06-30-22 documented in this encounter [facility] 06-15-2022 Note HNO ID: [id number] Author: Monet Osei RDMS Service: Abstract Author Type: Textiles Printer Type: Progress Notes Filed: 06/15/2022 8:09 PM [...] RDMS June 15, 2022 8:08 PM [facility] 06-15-2022 History of Present illness Narrative [...] PM documented in this encounter [facility] 06-14-2022 Miscellaneous Notes Images from the [...] MD 06/14/2022 9:35 AM EST Back to [facility] Milly, I reviewed the ultrasound done in November This hypodensity was felt to be a benign cyst I will order a follow up ultrasound to be done This is reassuring Carol Winn MD 06/14/2022 9:29 AM EST [place], the CT scan showed Fatty liver [...] results documented in this encounter [facility] 06-10-2022 History of Present illness Narrative [...] AM documented in this encounter [facility] 05-27-2022 Note HNO ID: [id number] Author: RT Nakita(Aroldo) Service: Radiology Author Type: [...] RT Nakita(R) May 27, 2022 12:29 PM [facility] 05-27-2022 History of Present illness Narrative [...] PM documented in this encounter [facility] 05-27-2022 History of Present illness Narrative [...] 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 documented in this encounter [facility] 05-03-2022 Evaluation note Encounter Date Diagnosis Assessment Notes Apr, ENGLISH (nonalcoholic steatohepatiti s) (ICD-10 - K75.81) Apr, Abnormal ultrasound (ICD-10 - R93.89) Apr, Elevated liver enzymes (ICD-10 - R74.8) Apr, Liver cyst (ICD-10 - K76.89) brotips Other Evaluation + Plan note Future Appointments Appointment Date:06/30/2022 10:00:00 AM Scheduled Provider: Location:[facility] Appointment Type:Urology CALL PAT FT Appointment Date:07/05/2022 08:15:00 AM Scheduled Provider: Location:[facility] Appointment Type:Urology FT Diagnostic Tests Pending * [facility]rine Culture [facility] Future Appointments Appointment Date:11/07/2022 03:15:00 PM Scheduled Provider:Madhuri MISHRA MD Location:[facility] App[facility] Future Appointments Appointment Date:12/30/2024 03:15:00 PM Scheduled Provider:Madhuri MISHRA MD Location:[facility] Appointment Type:URO Office Visit [facility] evalyxwvdc noteNo assessment information available [facility] Work Phone: Evaluation note* Diagnosis Fatty liver- Primary Other chronic nonalcoholic liver disease Bilious vomiting with nausea Right sided abdominal pain Abdominal pain, unspecified site Nausea Nausea alone History of diverticulitis SOB (shortness of breath) Shortness of breath documented in this encounter [facility] note* Diagnosis Liver lesion- Primary Other specified disorders of liver documented in this encounter [facility] note* Diagnosis Gastroparesis- Primary documented in this encounter [facility] note* Diagnosis Gastroparesis- Primary documented in this encounter [facility] note* Diagnosis Irritable bowel syndrome with constipation- Primary Irritable bowel syndrome documented in this encounter [facility] note* Diagnosis Gastroparesis documented in this encounter [facility] note* Diagnosis Gastroparesis- Primary [facility]* Diagnosis SOB (shortness of breath) Shortness of breath [facility]* Diagnosis Liver lesion Other specified disorders of liver documented [facility]* Diagnosis Elevated LFTs Other abnormal blood chemistry documented in this encounter [facility] note* Diagnosis Bilious vomiting with nausea Right sided abdominal pain Abdominal pain, unspecified site Nausea Nausea alone documented in this encounter [facility] note* Diagnosis Nausea Nausea alone documented in this encounter [facility] note* Diagnosis Gastroparesis- Primary documented in this encounter [facility] note* Diagnosis Syncope and collapse- Primary documented in this encounter [facility] note* Diagnosis Syncope, unspecified syncope type- Primary documented in this encounter [facility] note* Diagnosis Syncope, unspecified syncope type- Primary documented in this encounter [facility] note* Diagnosis Nausea- Primary Nausea alone PUD (peptic ulcer disease) Peptic ulcer, unspecified site, unspecified as acute or chronic, without mention of hemorrhage, perforation, or obstruction Nausea Nausea alone documented in this encounter [facility] note* Diagnosis PUD (peptic ulcer disease)- Primary Peptic ulcer, unspecified site, unspecified as acute or chronic, without mention of hemorrhage, perforation, or obstruction Bilious vomiting with nausea Right sided abdominal pain Abdominal pain, unspecified site Nausea- Primary Nausea alone PUD (peptic ulcer disease) Peptic ulcer, unspecified site, unspecified as acute or chronic, without mention of hemorrhage, perforation, or obstruction documented in this encounter [facility] note* Diagnosis Attention deficit hyperactivity disorder, predominantly [...] or radiculitis nos documented in this encounter [facility]* Diagnosis Attention deficit hyperactivity disorder, [...] Hospitalization History NONE ON THE LAST YEAR brotips Other Hospital course Narrative No data available for this section [facility] No data available for this section [facility] No data available for this section [facility] Outpatient Procedure (Routine) - Authorized Specialty Diagnoses / Procedures Referred By Norma Referred To Contact [facility] Diagnoses Bilious vomiting with nausea Right sided abdominal pain Procedures EGD DIAGNOSTIC ESOPHAGOGASTRODUODENOSC OPY TRANSORAL [place]ST[place] [address] [place] [address] [place] [address] Referral ID Status Reason Start Date Expiration Date Visits Requested Visits Authorized [id number] Authorized Auto-Generat ed Referral 05/27/2022 05/27/2023 1 1 * MRI/CT (Routine) - Authorized Specialty Diagnoses / Procedures Referred By Norma kennedy Referred To Contact CT IMAGING Diagnoses Bilious vomiting with nausea Right sided abdominal pain Nausea Procedures CT ABD/PEL WO IVCON CT ABD & P[place] [address] [place] [address] Ct Imaging Referral ID Status Reason Start Date Expiration Date Visits Requested Visits Authorized [id number] Authorized Auto-Generat ed Referral 05/27/2022 06/26/2023 1 1 [facility] for referral (narrative)* Diagnostic Procedure Only (Routine) - Authorized Specialty Diagnoses / Procedures [facility] Referred To Contact [facility] Diagnoses Liver lesion Procedures US ABD RT UPPER QUADRANT US ABDOMINAL REAL TIME W/IMAGE LIMITED [place] [address] [place] [address] Us Imaging Referral ID Status Reason Start Date Expiration Date Visits Requested Visits Authorized [id number] Authorized Auto-Generat ed Referral 06/14/2022 07/14/2023 1 1 [facility] for referral (narrative)* Diagnostic Procedure Only (Routine) - Closed Specialty Diagnoses / Procedures Referred By Contac t Referred To Contact US IMAGING Diagnoses Liver lesion Procedures US ABD RT UPPER QUADRANT US ABDOMINAL REAL [place] W/[place] [address] [place] [address] [place] [address] Referral ID Status Reason Start Date Expiration Date V isits Requested Visits Authorized [id number] Closed Auto-Generate d Referral 06/14/2022 07/14/2023 1 1 [facility] for referral (narrative)* Diagnostic Procedure Only (Routine) - Closed Specialty Diagnoses / Procedures Referred By Contac t Referred To Contact US IMAGING Diagnoses Elevated LFTs Procedures US ABD RT UPPER QUADRANT US ABDOMINAL REAL TIME W/[place] [address] [place] [address] [place] [address] Referral ID Status Reason Start Date Expiration Date V isits Requested Visits Authorized [id number] Closed Auto-Generate d Referral 11/24/2021 12/24/2022 1 1 [facility] for referral (narrative)* Diagnostic Procedure Only (Routine) - Closed Specialty Diagnoses / Procedures Referred By Contac t Referred To Contact [facility] Diagnoses Nausea Procedures NM GASTRIC EMPTYING SOLID [place]STRIC [place] [address] [place] [address] [facility] [address] [phone] Referral ID Status Reason Start Date Expiration Date V isits Requested Visits Authorized [id number] Closed Auto-Generate d Referral 08/31/2022 09/30/2023 1 1 [facility] for referral (narrative)* Outpatient Procedure (Routine) - Authorized Specialty Diagnoses / Procedures Referred By Contac t Referred To Contact [facility] [place] Diagnoses Gastroparesis Procedures ECG COMPLETE ECG ROUTINE ECG W/LEAST 12 LDS W/I&R Solo Mora MD [address] [place] [address] [facility] [address] [address] Referral ID Status Reason Start Date Expiration Date Visits Requested Visits Authorized [id number] Authorized Auto-Generat ed Referral 11/02/2023 11/01/2024 1 1 [facility] for referral (narrative)* Outpatient Procedure (Routine) - Authorized Specialty Diagnoses / Procedures [facility] Referred To Contact [facility] [place] Diagnoses Syncope and collapse Procedures ECG COMPLETE ECG ROUTINE ECG W/LEAST 12 LDS W/I&R Solo Mora MD [address] [place] [address] [address] Referral ID Status Reason Start Date Expiration Date Visits Requested Visits Authorized [id number] Authorized Auto-Generat ed Referral 12/19/2023 12/18/2024 1 1 [facility] for referral (narrative)* Diagnostic Procedure Only (Routine) - Closed Specialty Diagnoses / Procedures [facility] Referred To Contact [facility] FUNCTIONAL IMAGING Diagnoses Nausea Procedures NM GASTRIC EMPTYING SOLID [place]STRIC [place] [address] [place] [address] Molecular [facility] Functional Imaging [address] [phone] Referral ID Status Reason Start Date Expiration Date V isits Requested Visits Authorized [id number] Closed Auto-Generate d Referral 08/31/2022 09/30/2023 1 1 * Outpatient Procedure (Routine) - Closed Specialty Diagnoses / Procedures Referred By Contac t Referred [facility] Diagnoses PUD (peptic ulcer disease) Procedures EGD DIAGNOSTIC ESOPHAGOGASTRODUODENOSC OPY TRANSORAL [place] [address] [place] [address] [address] Referral ID Status Reason Start Date Expiration Date V isits Requested Visits Authorized [id number] Closed Auto-Generate d Referral 06/30/2022 07/01/2023 1 1 [facility] for referral (narrative)* Outpatient Procedure (Routine) - Closed Specialty Diagnoses / Procedures Referred By Norma t Referred To [facility] Diagnoses PUD (peptic ulcer disease) Procedures EGD DIAGNOSTIC ESOPHAGOGASTRODUODENOSC OPY [place] [address] [place] [address] [address] Referral ID Status Reason Start Date Expiration Date V isits Requested Visits Authorized [id number] Closed Auto-Generate d Referral 06/30/2022 07/01/2023 1 1 * Outpatient Procedure (Routine) - Closed Specialty Diagnoses / Procedures Referred By Contac t Referred To [facility] Diagnoses Bilious vomiting with nausea Right sided abdominal pain Procedures EGD DIAGNOSTIC ESOPHAGOGASTRODUODENOSC OPY [place]ANS[place]AL [place] [address] [place] [address] [facility] [address] [place] [address] Referral ID Status Reason Start Date Expiration Date V isits Requested Visits Authorized [id number] Closed Auto-Generate d Referral 05/27/2022 05/27/2023 1 1 [facility] for visit NarrativePATIENT HERE AT THE REQUEST OF DR. HAGEN FOR ENGLISH & ABNORMAL US. ULTRASOUND AND LABS IN REFERRAL. PATIENT STATES SHE FEELS LETHARGIC & HAS OCCASIONAL ABDOMINAL PAINNew [place] [employer]onics [employer] Other Reason for visit Narrative* Diagnostic Procedure Only (Routine) - Closed Specialty Diagnoses / Procedures Referred By Contac t Referred To Contact [facility] IMAGING Diagnoses Liver lesion Procedures US ABD RT UPPER QUADRANT US ABDOMINAL REAL [place] W/[place] [address] [place] [address] [place] [address] Referral ID Status Reason Start Date Expiration Date V isits Requested Visits Authorized [id number] Closed Auto-Generate d Referral 06/14/2022 07/14/2023 1 1 [facility] for visit Narrative* Diagnostic Procedure Only (Routine) - Closed Specialty Diagnoses / Procedures Referred By Contac t Referred To Contact US IMAGING Diagnoses Elevated LFTs Procedures US ABD RT UPPER QUADRANT US ABDOMINAL REAL [place] W/[place] [address] [facility] [place] [address] [place] [address] Referral ID Status Reason Start Date Expiration Date V isits Requested Visits Authorized [id number] Closed Auto-Generate d Referral 11/24/2021 12/24/2022 1 1 [facility] for visit Narrative* Diagnostic Procedure Only (Routine) - Closed Specialty Diagnoses / Procedures Referred By Contac t Referred To Contact MOLECULAR & FUNCTIONAL IMAGING Diagnoses Nausea Procedures NM GASTRIC EMPTYING SOLID [place] [address] [place] [address] Molecular & Functional Imaging [address] [place] [address] Referral ID Status Reason Start Date Expiration Date V isits Requested Visits Authorized [id number] Closed Auto-Generate d Referral 08/31/2022 09/30/2023 1 1 [facility] for visit Narrative* Outpatient Procedure (Routine) - Closed Specialty Diagnoses / Procedures Referred By Norma t Referred To Contact [facility] Diagnoses PUD (peptic ulcer disease) Procedures EGD DIAGNOSTIC ESOPHAGOGASTRODUODENOSC OPY [place]ANS[place]AL [place] [address] [place] [address] [facility] [address] [address] Referral ID Status Reason Start Date Expiration Date V isits Requested Visits Authorized [id number] Closed Auto-Generate d Referral 06/30/2022 07/01/2023 1 1 [facility] for visit Narrative* Outpatient Procedure (Routine) - Closed Specialty Diagnoses / Procedures Referred By Norma kennedy Referred To Contact [facility] Diagnoses Bilious vomiting with nausea Right sided abdominal pain Procedures EGD DIAGNOSTIC ESOPHAGOGASTRODUODENOSC OPY [place]ANS[place]AL [place] [address] [place] [address] [facility] [address] [address] Referral ID Status Reason Start Date Expiration Date V isits Requested Visits Authorized [id number] Closed Auto-Generate d Referral 05/27/2022 05/27/2023 1 1 [facility] for visit Narrative* Rehabilitation - Outpatient (Routine) - Authorized Specialty Diagnoses / Procedures Referred By Norma t Referred To Contact Physical Therapy Diagnoses Cervical radiculopathy Procedures [place] OFFICE/OUTPATIENT NEW [facility] 60 MINUTES Giovani Hagen MD [address] [address] Phone: tel: fax: Jumana Burgess, PT [address] [facility] [address] [place] [address] Phone: tel: fax: Referral ID Status Reason Start Date Expiration Date Visits Requested Visits Authorized [id number] Authorized Specialty Services Required 01/25/2024 10/21/2024 25 25 [facility] - Outpatient (Routine) - Authorized Specialty Diagnoses / Procedures Referred By Norma kennedy Referred To Contact Physical Therapy Diagnoses Cervical radiculopathy Unspecified injury of right ankle, subsequent encounter Procedures [place] OFFICE/OUTPATIENT NEW [facility] 60 MINUTES Giovani Hagen MD 112 [facility] [address] [place] [address] Phone: tel: fax: Jumana Burgess, PT 112 [facility] [address] [place] [address] Phone: tel: fax: Referral ID Status Reason Start Date Expiration Date Visits Requested Visits Authorized [id number] Authorized Specialty Services Required 01/25/2024 10/21/2024 25 [...] FOLLOW UP APPT ORDER Solo Mora MD [facility]0 [place] [address] Heart [facility] V[facility] [address] [address] Referral ID Status Reason Start Date Expiration Date Visits Requested Visits Authorized [id number] Ref Not Required PCP Requested Referral 12/28/2023 12/27/2024 1 1 Specialty Diagnoses / Procedures Referred By Contac t Referred To Contact [facility] Diagnoses Syncope, unspecified syncope type Procedures STRESS ECHO TREADMILL ECHO TTHRC R-T 2D W/WO M-MODE COMPLETE REST&ST Solo Mora MD [id number] [place] [address] Referral ID Status Reason Start Date Expiration Date Visits Requested Visits Authorized [id number] Authorized Auto-Generat ed Referral 12/19/2023 12/18/2024 1 1 Specialty Diagnoses / Procedures Referred By Contac t Referred To Contact CT IMAGING Diagnoses Bilious vomiting with nausea Right sided abdominal pain Nausea Procedures CT ABD/PEL WO IVCON CT ABD & P[place] [address] [place] [address] [address] [facility] [place] [address] Referral ID Status Reason Start Date Expiration Date V isits Requested Visits Authorized [id number] Closed Auto-Generate d Referral 05/27/2022 06/26/2023 1 1 Additional Source Comments INFORMATION SOURCE (unrecogn ized section and content) DATE CREATED AUTHOR 11/09/2018 [facility] DATE CREATED AUTHOR AUTHOR'S ORGANIZ ATION 08/23/2021 [facility] dical Specialist DATE CREATED AUTHOR AUTHOR'S ORGANIZ ATION 07/17/2022 [facility] DATE CREATED AUTHOR AUTHOR'S ORGANIZ ATION 10/29/2022 [facility] DATE CREATED AUTHOR AUTHOR'S ORGANIZ ATION 10/31/2022 [facility] DATE CREATED AUTHOR AUTHOR'S ORGANIZ ATION 03/22/2023 [facility] DATE CREATED AUTHOR AUTHOR'S ORGANIZ ATION 03/28/2023 [facility] DATE CREATED AUTHOR AUTHOR'S ORGANIZ ATION 12/29/[address] [facility] DATE CREATED AUTHOR AUTHOR'S ORGANIZ ATION 02/23/2024 [facility] DATE CREATED AUTHOR AUTHOR'S ORGANIZ ATION 03/13/2024 [facility] dical Specialists [facility] Care Teams (unrecognized sec tion and content) Team Status: Active Member Role Status Dates Giovani Hagen MD Primary Care Provider Active Team Status: Inactive Member Role Status Dates Erwin Hylton MD Attending Provider Active Giovani Hagen MD Primary Care Provider Active Plastic Surgery Coordinator Relationship Specialty Start Date End Date HieuKiranen Mabalay [address] [place] [address] [place] [address] PCP - General Family Medicine 03/27/19 Plastic Surgery Coordinator Relationship Specialty Start Date End Date HieuKiranen Mabalay [address] [place] [address] [place] [address] PCP - General Family Medicine 03/27/19 Plastic Surgery Coordinator Relationship Specialty Start Date End Date [place]Kiranen Mabalay [address] [place] [address] [place] [address] PCP - General Family Medicine 03/27/19 Plastic Surgery Coordinator Relationship Specialty Start Date End Date HieuKiranen Mabalay [address] [place] [address] [place] [address] PCP - General Family Medicine 03/27/19 Plastic Surgery Coordinator Relationship Specialty Start Date End Date HieuKiranen Mabalay [address] [place] [address] [place] [address] PCP - General Family Medicine 03/27/19 Plastic Surgery Coordinator Relationship Specialty Start Date End Date [place], Kiranen Mabalay [address] [place] [address] [place] [address] PCP - General Family Medicine 03/27/19 Plastic Surgery Coordinator Relationship Specialty Start Date End Date Hieu, Kiranen Mabalay [address] [place] [address] [place] [address] PCP - General Family Medicine 03/27/19 Plastic Surgery Coordinator Relationship Specialty Start Date End Date Hieu, Rugen Mabalay [address] [place] [address] [place] [address] PCP - General Family Medicine 03/27/19 Plastic Surgery Coordinator Relationship Specialty Start Date End Date Giovani Hagen [address] [place] [address] [place] [address] PCP - General Family Medicine 03/27/19 Plastic Surgery Coordinator Relationship Specialty Start Date End Date Giovani Hagen [address] [place] [address] [place] [address] PCP - General Family Medicine 03/27/19 Plastic Surgery Coordinator Relationship Specialty Start Date End Date Giovani Hagen [address] [place] [address] [place] [address] PCP - General Family Medicine 03/27/19 Plastic Surgery Coordinator Relationship Specialty Start Date End Date HieuGiovani [address] [place] [address] [place] [address] PCP - General Family Medicine 03/27/19 Plastic Surgery Coordinator Relationship Specialty Start Date End Date Giovani Hagen [address] [place] [address] [place] [address] PCP - General Family Medicine 03/27/19 Plastic Surgery Coordinator Relationship Specialty Start Date End Date Giovani Hagen [address] [place] [address] [place] [address] PCP - General Family Medicine 03/27/19 Plastic Surgery Coordinator Relationship Specialty Start Date End Date Giovani Hagen MD [address] [place] [address] [place] [address] PCP - General Family Medicine 03/27/19 Plastic Surgery Coordinator Relationship Specialty Start Date End Date Giovani Hagen MD [address] [place] [address] [place] [address] PCP - General Family Medicine 03/27/19 Plastic Surgery Coordinator Relationship Specialty Start Date End Date Giovani Hagen MD [address] [place] [address] [place] [address] PCP - General Family Medicine 03/27/19 Plastic Surgery Coordinator Relationship Specialty Start Date End Date Giovani Hagen MD [address] [place] [address] [place] [address] PCP - General Family Medicine 03/27/19 Plastic Surgery Coordinator Relationship Specialty Start Date End Date Giovani Hagen MD [address] [place] [address] [place] [address] PCP - General Family Medicine 03/27/19 Plastic Surgery Coordinator Relationship Specialty Start Date End Date Giovani Hagen MD [address] [place] [address] [place] [address] PCP - General Family Medicine 03/27/19 Plastic Surgery Coordinator Relationship Specialty Start Date End Date Giovani Hagen MD [address] [place] [address] [place] [address] PCP - General Family Medicine 03/27/19 Plastic Surgery Coordinator Relationship Specialty Start Date End Date Giovani Hagen MD [address] [place] [address] [place] [address] PCP - General Family Medicine 03/27/19 Plastic Surgery Coordinator Relationship Specialty Start Date End Date Giovani Hagen MD [address] [place] [address] [place] [address] PCP - General Family Medicine 03/27/19 Plastic Surgery Coordinator Relationship Specialty Start Date End Date Giovani Hagen MD [address] [place] [address] [place] [address] PCP - General Family Medicine 03/27/19 Plastic Surgery Coordinator Relationship Specialty Start Date End Date Giovani Hagen MD [address] [place] [address] [place] [address] PCP - General Family Medicine 03/27/19 Plastic Surgery Coordinator Relationship Specialty Start Date End Date Giovani Hagen MD [address] [place] [address] [place] [address] PCP - General [facility] Medicine 03/27/19 Plastic Surgery Coordinator Relationship Specialty Start Date End Date Giovani Hagen MD [address] [place] [address] [place] [address] PCP - [facility] 03/27/19 Plastic Surgery Coordinator Relationship Specialty Start Date End Date Giovani Hagen MD [address] [place] [address] [place] [address] PCP - Medical [employer] 10/22/18 04/23/99 Giovani Hagen MD [address] [place] [address] [place] [address] PCP - General [facility] Medicine 08/30/22 Plastic Surgery Coordinator Relationship Specialty Start Date End Date Giovani Hagen MD [address] [place] [address] [place] [address] PCP - Medical [employer] 10/22/18 04/23/99 Giovani Hagen MD [address] [place] [address] [place] [address] PCP - General Family Medicine 08/30/22 Plastic Surgery Coordinator Relationship Specialty Start Date End Date Giovani Hagen MD [address] [facility] [address] [place] [address] PCP - Medical [employer] 10/22/18 04/23/99 Giovani Hagen MD [address] [facility] [address] [place] [address] PCP - General Family Medicine 08/30/22 Plastic Surgery Coordinator Relationship Specialty Start Date End Date Giovani Hagen MD [address] [facility] [address] [place] [address] PCP - Medical [facility] 10/22/18 04/23/99 Giovani Hagen MD [address] [facility] [address] [place] [address] PCP - General [facility] Medicine 08/30/22 Plastic Surgery Coordinator Relationship Specialty Start Date End Date Giovani Hagen MD [address] [facility] [address] [place] [address] PCP - Medical [facility] 10/22/18 04/23/99 Giovani Hagen MD [address] [facility] [address] [place] [address] PCP - General Family Medicine 08/30/22 Plastic Surgery Coordinator Relationship Specialty Start Date End Date Giovani Hagen MD [address] [facility] [address] [place] [address] PCP - Medical [employer] 10/22/18 04/23/99 Giovani Hagen MD [address] [facility] [address] [place] [address] PCP - General Family Medicine 08/30/22 Plastic Surgery Coordinator Relationship Specialty Start Date End Date Giovani Hagen MD [address] [facility] [address] [place] [address] PCP - Medical [employer] 10/22/18 04/23/99 Giovani Hagen MD [address] [facility] [address] [place] [address] PCP - General Family Medicine 08/30/22 Plastic Surgery Coordinator Relationship Specialty Start Date End Date Giovani Hagen MD [address] [facility] [address] [place] [address] PCP - Medical [facility] 10/22/18 04/23/99 Giovani Hagen MD [address] [facility] [address] [place] [address] PCP - General [facility] Medicine 08/30/22 Plastic Surgery Coordinator Relationship Specialty Start Date End Date Giovani Hagen MD [address] [facility] [address] [place] [address] PCP - Medical [facility] 10/22/18 04/23/99 Giovani Hagen MD [address] [facility] [address] [place] [address] PCP - General Family Medicine 08/30/22 Plastic Surgery Coordinator Relationship Specialty Start Date End Date Giovani Hagen MD [address] [facility] [address] [place] [address] PCP - Medical [employer] 10/22/18 04/23/99 Giovani Hagen MD [address] [facility] [address] [place] [address] PCP - General Family Medicine 08/30/22 Plastic Surgery Coordinator Relationship Specialty Start Date End Date Giovani Hagen MD [address] [facility] [address] [place] [address] PCP - Medical [employer] 10/22/18 04/23/99 Giovani Hagen MD [address] [facility] [address] [place] [address] PCP - General Family Medicine 08/30/22 Plastic Surgery Coordinator Relationship Specialty Start Date End Date Giovani Hagen MD [address] [facility] [address] [place] [address] PCP - Medical [facility] 10/22/18 04/23/99 Giovani Hagen MD [address] [facility] [address] [place] [address] PCP - General [facility] Medicine 08/30/22 Plastic Surgery Coordinator Relationship Specialty Start Date End Date Giovani Hagen MD [address] [facility] [address] [place] [address] PCP - Medical [facility] 10/22/18 04/23/99 Giovani Hagen MD [address] [facility] [address] [place] [address] PCP - General Family Medicine 08/30/22 Plastic Surgery Coordinator Relationship Specialty Start Date End Date Giovani Hagen MD [address] [facility] [address] [place] [address] PCP - Medical [employer] 10/22/18 04/23/99 Giovani Hagen MD [address] [facility] [address] [place] [address] PCP - General Family Medicine 08/30/22 Plastic Surgery Coordinator Relationship Specialty Start Date End Date Giovani Hagen MD [address] [facility] [address] [place] [address] PCP - Medical [employer] 10/22/18 04/23/99 Giovani Hagen MD [address] [facility] [address] [place] [address] PCP - General Family Medicine 08/30/22 Plastic Surgery Coordinator Relationship Specialty Start Date End Date Giovani Hagen MD [address] [facility] [address] [place] [address] PCP - Medical [facility] 10/22/18 04/23/99 Giovani Hagen MD [address] [facility] [address] [place] [address] PCP - General Family Medicine 08/30/22 Plastic Surgery Coordinator Relationship Specialty Start Date End Date Giovani Hagen MD [address] [facility] [address] [place] [address] PCP - Medical [facility] 10/22/18 04/23/99 Giovani Hagen MD 112 [facility] [address] [place] [address] PCP - General Family Medicine 08/30/22 Source Comments (unrecognize d section and content) In the event this informatio n is protected by the Federal Confidentiality of Alcohol and Drug Abuse Patient Records regulations: The Federal rules restrict any use of the information to criminally investigate or prosecute any alcohol or drug abuse patient.[facility] the event this information is protected by the Federal Confidentiality of Alcohol and Drug Abuse Patient Records regulations: The Federal rules restrict any use of the information to criminally investigate or prosecute any alcohol or drug abuse patient.[facility] HospitalIn the event this information is protected by the Federal Confidentiality of Alcohol and Drug Abuse Patient Records regulations: The Federal rules restrict any use of the information to criminally investigate or prosecute any alcohol or drug abuse patient.[facility] Hospital[facility] the event this information is protected by the Federal Confidentiality of Alcohol and Drug Abuse Patient Records regulations: The Federal rules restrict any use of the information to criminally investigate or prosecute any alcohol or drug abuse patient.[facility] HospitalIn the event this information is protected by the Federal Confidentiality of Alcohol and Drug Abuse Patient Records regulations: The Federal rules restrict any use of the information to criminally investigate or prosecute any alcohol or drug abuse patient.[facility] HospitalIn the event this information is protected by the Federal Confidentiality of Alcohol and Drug Abuse Patient Records regulations: The Federal rules restrict any use of the information to criminally investigate or prosecute any alcohol or drug abuse patient.[facility] HospitalIn the event this information is protected by the Federal Confidentiality of Alcohol and Drug Abuse Patient Records regulations: The Federal rules restrict any use of the information to criminally investigate or prosecute any alcohol or drug abuse patient.[facility] HospitalIn the event this information is protected by the Federal Confidentiality of Alcohol and Drug Abuse Patient Records regulations: The Federal rules restrict any use of the information to criminally investigate or prosecute any alcohol or drug abuse patient.[facility] HospitalIn the event this information is protected by the Federal Confidentiality of Alcohol and Drug Abuse Patient Records regulations: The Federal rules restrict any use of the information to criminally investigate or prosecute any alcohol or drug abuse patient.[facility] HospitalIn the event this information is protected by the Federal Confidentiality of Alcohol and Drug Abuse Patient Records regulations: The Federal rules restrict any use of the information to criminally investigate or prosecute any alcohol or drug abuse patient.[facility] HospitalIn the event this information is protected by the Federal Confidentiality of Alcohol and Drug Abuse Patient Records regulations: The Federal rules restrict any use of the information to criminally investigate or prosecute any alcohol or drug abuse patient.[facility] HospitalIn the event this information is protected by the Federal Confidentiality of Alcohol and Drug Abuse Patient Records regulations: The Federal rules restrict any use of the information to criminally investigate or prosecute any alcohol or drug abuse patient.[facility] HospitalIn the event this information is protected by the Federal Confidentiality of Alcohol and Drug Abuse Patient Records regulations: The Federal rules restrict any use of the information to criminally investigate or prosecute any alcohol or drug abuse patient.[facility] HospitalIn the event this information is protected by the Federal Confidentiality of Alcohol and Drug Abuse Patient Records regulations: The Federal rules restrict any use of the information to criminally investigate or prosecute any alcohol or drug abuse patient.[facility] HospitalIn the event this information is protected by the Federal Confidentiality of Alcohol and Drug Abuse Patient Records regulations: The Federal rules restrict any use of the information to criminally investigate or prosecute any alcohol or drug abuse patient.[facility] HospitalIn the event this information is protected by the Federal Confidentiality of Alcohol and Drug Abuse Patient Records regulations: The Federal rules restrict any use of the information to criminally investigate or prosecute any alcohol or drug abuse patient.[facility] HospitalIn the event this information is protected by the Federal Confidentiality of Alcohol and Drug Abuse Patient Records regulations: The Federal rules restrict any use of the information to criminally investigate or prosecute any alcohol or drug abuse patient.[facility] HospitalIn the event this information is protected by the Federal Confidentiality of Alcohol and Drug Abuse Patient Records regulations: The Federal rules restrict any use of the information to criminally investigate or prosecute any alcohol or drug abuse patient.[facility] HospitalIn the event this information is protected by the Federal Confidentiality of Alcohol and Drug Abuse Patient Records regulations: The Federal rules restrict any use of the information to criminally investigate or prosecute any alcohol or drug abuse patient.[facility] HospitalIn the event this information is protected by the Federal Confidentiality of Alcohol and Drug Abuse Patient Records regulations: The Federal rules restrict any use of the information to criminally investigate or prosecute any alcohol or drug abuse patient.[facility] HospitalIn the event this information is protected by the Federal Confidentiality of Alcohol and Drug Abuse Patient Records regulations: The Federal rules restrict any use of the information to criminally investigate or prosecute any alcohol or drug abuse patient.[facility] HospitalIn the event this information is protected by the Federal Confidentiality of Alcohol and Drug Abuse Patient Records regulations: The Federal rules restrict any use of the information to criminally investigate or prosecute any alcohol or drug abuse patient.[facility] HospitalIn the event this information is protected by the Federal Confidentiality of Alcohol and Drug Abuse Patient Records regulations: The Federal rules restrict any use of the information to criminally investigate or prosecute any alcohol or drug abuse patient.[facility] HospitalIn the event this information is protected by the Federal Confidentiality of Alcohol and Drug Abuse Patient Records regulations: The Federal rules restrict any use of the information to criminally investigate or prosecute any alcohol or drug abuse patient.[facility] HospitalIn the event this information is protected by the Federal Confidentiality of Alcohol and Drug Abuse Patient Records regulations: The Federal rules restrict any use of the information to criminally investigate or prosecute any alcohol or drug abuse patient.[facility] HospitalIn the event this information is protected by the Federal Confidentiality of Alcohol and Drug Abuse Patient Records regulations: The Federal rules restrict any use of the information to criminally investigate or prosecute any alcohol or drug abuse patient.[facility] HospitalIn the event this information is protected by the Federal Confidentiality of Alcohol and Drug Abuse Patient Records regulations: The Federal rules restrict any use of the information to criminally investigate or prosecute any alcohol or drug abuse patient.[facility] HospitalIn the event this information is protected by the Federal Confidentiality of Alcohol and Drug Abuse Patient Records regulations: The Federal rules restrict any use of the information to criminally investigate or prosecute any alcohol or drug abuse patient.[facility] HospitalIn the event this information is protected by the Federal Confidentiality of Alcohol and Drug Abuse Patient Records regulations: The Federal rules restrict any use of the information to criminally investigate or prosecute any alcohol or drug abuse patient.[facility] HospitalIn the event this information is protected by the Federal Confidentiality of Alcohol and Drug Abuse Patient Records regulations: The Federal rules restrict any use of the information to criminally investigate or prosecute any alcohol or drug abuse patient.[facility] HospitalIn the event this information is protected by the Federal Confidentiality of Alcohol and Drug Abuse Patient Records regulations: The Federal rules restrict any use of the information to criminally investigate or prosecute any alcohol or drug abuse patient.[facility] HospitalIn the event this information is protected by the Federal Confidentiality of Alcohol and Drug Abuse Patient Records regulations: The Federal rules restrict any use of the information to criminally investigate or prosecute any alcohol or drug abuse patient.[facility] Reason for Visit (unrecogniz ed section [...] & PELVIS W/[place] [address] [place] [address] [place] [address] Referral ID Status Reason Start Date Expiration Date V isits Requested Visits Authorized [id number] Closed Auto-Generate d Referral 05/27/2022 06/26/2023 1 [...] THE PRIMARY CLINICAL RECORDS. [facility] [employer] [facility]. provides no warranty or guarantee of the accuracy or completeness of information in this document.
== END 2024-03-20 19:33 | disposition home or self-care (01) ==
LOC: LAB 19:32
PROVIDERS: PCP Family Medicine; Visit Provider Obstetrics & Gynecology
DX: Z01.419 Encounter for gynecological examination (general) (routine) without abnormal findings (principal)
CPT/HCPCS: 87624; 88175

== ENCOUNTER 2024-04-01 20:06 | Emergency (ER) | payer OTHER, SELFPAY ==
[2024-04-01] VITALS (15 sets, daily range): BP systolic 142–196; BP diastolic 90–127; PULSE 97–122; TEMP 36.8; O2SAT 98–99; BMI 33.5
--- NOTE | 2024-04-01 20:28 | CT_ITS ---
The [address] [address] Patient Name: ORION HARPER MRN: [id number] date: 1990 Sex: F Assigned Patient Location: ER Current Patient Location: ER Accession/Order Number: [id number] Exam Date: 04/01/2024 20:45 Report Date: 04/01/2024 21:36 At the request of: BEBETO GIFFORD Procedure: CT head/brain wo con EXAM: CT head/brain wo con HISTORY: Headache, vomiting COMPARISON: CT brain 12/27/2022. TECHNIQUE: Axial CT scans through the head were obtained without IV contrast administration. Dose reduction techniques were achieved by using: automated exposure control and/or adjustment of mA and /or kV according to patient size and/or use of iterative reconstruction technique. FINDINGS: There is no acute intracranial hemorrhage or abnormal extra-axial fluid collection. No mass effect or midline shift is seen. There is no evidence of large acute territorial infarction. There is no hydrocephalus. To the limit of CT, the posterior fossa appears unremarkable. The calvaria and extra cranial soft tissues are unremarkable. The visualized orbits show no abnormality. The visualized paranasal sinuses show no air-fluid level. Mastoid air cells are clear. CT/CT head/brain wo con IMPRESSION: No acute intracranial process. Electronically authenticated by: VICTOR HUGO CASTANO Date: 04/01/2024 21:36
--- NOTE | 2024-04-01 20:29 | ECG_ITS ---
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
--- NOTE | 2024-04-01 20:30 | ED.GENADUL1 ---
Documented by User: VINH Monaco 04/01/24 21:39 HPI HPI - General Adult General Chief complaint: Neuro Symptoms/Deficit Stated complaint: TINGLING L ARM, ELEV BP Time Seen by Provider: 04/01/24 20:10 Source: patient Mode of arrival: walk-in Limitations: no limitations History of Present Illness HPI narrative: Patient is a 33-year-old female who presents to the emergency department for the evaluation of nausea, vomiting that began this morning. She states after she became nauseous and started vomiting, she developed a frontal headache and feels she has black spots in her vision with no complete visual loss or double vision. She denies any head injury, syncope or falls. She denies any history of frequent migraines or headaches. No medications taken prior to arrival. She denies a possibility of . She states she has now developed tingling in the left shoulder radiating to the left arm. She does have associated neck pain that she has been seeing a chiropractor for. Related Data Home Medications ?Medication ?Instructions ?Recorded ?Confirmed albuterol sulfate 90 mcg/actuation 2 inh inhalation Q4H PRN shortness 02/06/23 03/17/24 aerosol inhaler of breath or wheezing bupropion HCl 150 mg tablet,12 hr 150 mg PO BID 02/06/23 03/17/24 sustained-release cariprazine 4.5 mg capsule 4.5 mg PO QPM 02/06/23 03/17/24 (Vraylar) epinephrine 0.3 mg/0.3 mL 0.3 ml subcut Q4H PRN anaphylaxis 02/06/23 03/17/24 injection, auto-injector ondansetron 4 mg disintegrating 4 mg PO Q8H PRN nausea and vomiting 02/28/23 03/17/24 tablet alprazolam 0.5 mg tablet 0.5 mg PO BID 03/17/24 03/17/24 cephalexin 250 mg capsule 250 mg PO Q12H PRN uti 03/17/24 03/17/24 conjugated estrogens 0.625 mg/gram 0.625 mg vaginal QDAY 03/17/24 03/17/24 vaginal cream (Premarin) dextroamphetamine-amphetamine ER 30 mg PO QDAY 03/17/24 03/17/24 30 mg 24hr capsule,extend release escitalopram oxalate 20 mg tablet 20 mg PO QDAY 03/17/24 03/17/24 meloxicam 15 mg tablet 15 mg PO QDAY 03/17/24 03/17/24 phentermine 37.5 mg tablet 37.5 mg PO QDAY 03/17/24 03/17/24 Previous Rx's ?Medication ?Instructions ?Recorded ibuprofen 800 mg tablet 800 mg PO Q8H PRN pain 14 days #40 02/10/23 tabs Allergies Allergy/AdvReac Type Severity Reaction Status Date / Time cat dander Allergy Anaphylaxis Verified 03/17/24 20:22 Iodinated Contrast Media Allergy Hives Verified 03/17/24 20:22 Opioid HPI Opioid Management Most Recent Opioid Data: Last Pain Scale 7 03/17/24 20:50 03/17/24 Review of Systems ROS Constitutional Denies: fever or chills Eyes Reports: change in vision Ears, nose, mouth, and throat Denies: throat pain, nasal discharge or nasal congestion Cardiovascular Denies: chest pain Respiratory Denies: shortness of breath or cough Gastrointestinal Reports: nausea and vomiting; Denies: diarrhea Musculoskeletal Reports: neck pain; Denies: back pain Integumentary/Breast Denies: rash Neurological Reports: headache and numbness in extremities; Denies: weakness in extremities or dizziness Hematologic/Lymphatic Denies: easy bruising or easy bleeding [facility] Medical History (Updated 04/01/24 @ 22:06 by Toribio Gil) 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 - depression (ICD-10) Ovarian cyst ?N83.209 - Unspecified ovarian cyst, unspecified side (ICD-10) HELLP (hemolytic anemia/elev liver enzymes/low platelets in ) ?O14.20 - HELLP syndrome (HELLP), unspecified trimester (ICD-10) Gestational hypertension ?O13.9 - Gestational [-induced] hypertension without significant proteinuria, unspecified trimester (ICD-10) Dizziness ?R42 - Dizziness and giddiness (ICD-10) Vitamin D deficiency ?E55.9 - Vitamin D deficiency, unspecified (ICD-10) Urinary tract infection ?N39.0 - Urinary tract infection, site not specified (ICD-10) Urinary frequency ?R35.0 - Frequency of micturition (ICD-10) Hypercholesterolemia ?E78.00 - Pure hypercholesterolemia, unspecified (ICD-10) Osteoarthritis, knee ?M17.9 - Osteoarthritis of knee, unspecified (ICD-10) Gastroparesis ?K31.84 - Gastroparesis (ICD-10) GERD (gastroesophageal reflux disease) ?K21.9 - Gastro-esophageal reflux disease without esophagitis (ICD-10) Dysuria ?R30.0 - Dysuria (ICD-10) Enlarged thyroid ?E04.9 - Nontoxic goiter, unspecified (ICD-10) Headache ?R51.9 - Headache, unspecified (ICD-10) Skin pain ?R20.8 - Other disturbances of skin sensation (ICD-10) Sciatica ?M54.30 - Sciatica, unspecified side (ICD-10) Poor concentration ?R41.840 - Attention and concentration deficit (ICD-10) ENGLISH (nonalcoholic steatohepatitis) ?K75.81 - Nonalcoholic steatohepatitis (ENGLISH) (ICD-10) Kidney stones ?N20.0 - Calculus of kidney (ICD-10) Mood swings ?R45.86 - Emotional lability (ICD-10) Sinusitis ?J32.9 - Chronic sinusitis, unspecified (ICD-10) Insomnia ?G47.00 - Insomnia, unspecified (ICD-10) Hypersexuality ?F52.8 - Other sexual dysfunction not due to a substance or known physiological condition (ICD-10) Hyperglycemia ?R73.9 - Hyperglycemia, unspecified (ICD-10) Elevated liver enzymes ?R74.8 - Abnormal levels of other serum enzymes (ICD-10) Dysphagia ?R13.10 - Dysphagia, unspecified (ICD-10) Diverticulitis ?K57.92 - Diverticulitis of intestine, part unspecified, without perforation or abscess without bleeding (ICD-10) Bipolar 1 disorder ?F31.9 - Bipolar disorder, unspecified (ICD-10) Attention deficit hyperactivity disorder ?F90.9 - Attention-deficit hyperactivity disorder, unspecified type (ICD-10) Abnormal involuntary movement ?R25.9 - Unspecified abnormal involuntary movements (ICD-10) Endometriosis ?N80.9 - Endometriosis, unspecified (ICD-10) Dyspareunia Pelvic pain ?R10.2 - Pelvic and perineal pain (ICD-10) History of blood transfusion ?Z92.89 - Personal history of other medical treatment (ICD-10) Anemia ?D64.9 - Anemia, unspecified (ICD-10) PTSD (post-traumatic stress disorder) ?F43.10 - Post-traumatic stress disorder, unspecified (ICD-10) Depression ?F32.A - Depression, unspecified (ICD-10) Anxiety ?F41.9 - Anxiety disorder, unspecified (ICD-10) COVID-19 ?U07.1 - COVID-19 (ICD-10) Asthma ?J45.909 - Unspecified asthma, uncomplicated (ICD-10) Migraine ?G43.909 - Migraine, unspecified, not intractable, without status migrainosus (ICD-10) Heartburn ?R12 - Heartburn (ICD-10) Constipation ?K59.00 - Constipation, unspecified (ICD-10) IBS (irritable bowel syndrome) ?K58.9 - Irritable bowel syndrome without diarrhea (ICD-10) Tachycardia ?R00.0 - Tachycardia, unspecified (ICD-10) Syncope ?R55 - Syncope and collapse (ICD-10) Surgical History (Updated 02/06/23 @ 11:25 by Lindsey Quintero NP) History of esophagogastroduodenoscopy (EGD) ?Z98.890 - Other specified postprocedural states (ICD-10) History of colonoscopy ?Z98.890 - Other specified postprocedural states (ICD-10) History of hysterectomy ?Z90.710 - Acquired absence of both cervix and uterus (ICD-10) History of section ?Z98.891 - History of uterine scar from previous surgery (ICD-10) Family History (Updated 02/06/23 @ 11:25 by Lindsey Quintero NP) Other Family history of diabetes mellitus Family history of hypertension Family history of ovarian cancer Social History Within the past year, how often did you have a drink containing alcohol: 2-4 times a month Smoking status: Former smoker Non-prescribed substance use: denies use 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 Highest level of school completed/degree received: high school graduate Little interest or pleasure in doing things: not at all Feeling down, depressed, or hopeless: not at all Exam Narrative Exam Narrative: Gen.: Awake, alert, in no distress Head: Normocephalic, atraumatic ENT: Moist mucous membranes Respiratory: No respiratory distress, lungs clear bilaterally Cardio: Regular rate and rhythm Gastrointestinal: Abdomen is soft, nondistended and nontender to palpation Extremities: Moves extremities equally, 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 the 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 hands, moves all extremities equally Psych: Normal mood and affect Neuro: No focal neuro deficit Skin: Warm, dry, intact Constitutional Vital Signs, click to edit/add: Last Vital Signs Temp 98.3 F 04/01/24 20:16 Pulse 103 H 04/01/24 22:00 Resp 18 04/01/24 21:12 BP 144/96 H 04/01/24 22:03 Pulse Ox 98 04/01/24 22:00 O2 Del Method Room Air 04/01/24 21:12 Course Vital Signs Vital signs: Vital Signs Temperature 98.3 F 04/01/24 20:16 Pulse Rate 108 H 04/01/24 20:16 Respiratory Rate 18 04/01/24 20:16 Blood Pressure 142/101 H 04/01/24 20:16 Pulse Oximetry 99 04/01/24 20:16 Oxygen Delivery Method Room Air 04/01/24 20:16 Temperature 98.3 F 04/01/24 20:16 Pulse Rate 103 H 04/01/24 22:00 Respiratory Rate 18 04/01/24 21:12 Blood Pressure 144/96 H 04/01/24 22:03 Pulse Oximetry 98 04/01/24 22:00 Oxygen Delivery Method Room Air 04/01/24 21:12 Medical Decision Making [facility] Narrative Medical decision making narrative: 2136: Patient was ordered to have IV fluids, Reglan, Benadryl, Solu-Medrol for her headache and given her symptoms, she will require CT angio of the head and neck. She has an allergy to contrast so she was given additional Pepcid with a headache medications to premedicate her for the contrast studies. CT of the brain without contrast was obtained and lab studies are pending at this time. Patient was found to have a potassium of 2.9, additional Zofran and oral potassium was ordered for her. Her noncontrast head CT as well as the angios of the head and neck are pending. Patient does have evidence of transaminitis, this appears to be chronic for her and she has had this in the past. She does not complain of abdominal pain at this time. Case is turned over to attending physician at this time. SHARED APC VISIT, PHYSICIAN ATTESTATION: [id number] I performed a substantive part of the MDM during the patient?s E/M visit. I personally evaluated and examined the patient. I personally made or approved the documented management plan and acknowledge its risk of complications. Medical Records Medical records reviewed: Yes I reviewed the patient's medical records Lab Data Lab results reviewed: Yes I reviewed the patient's lab results Labs: Lab Results 04/01/24 Range/Units 20:45 WBC 9.0 (4.0-11.0) 10^3/uL RBC 4.58 (4.20-5.40) 10^6/uL Hgb 14.8 (12.0-16.0) g/dL Hct 43.6 (36.0-48.0) % MCV 95.2 (81.0-99.0) fL MCH 32.3 (26.7-34.0) pg MCHC 33.9 (29.9-35.2) g/dL RDW 12.8 (11.0-15.0) % Plt Count 240 (150-450) 10^3/uL MPV 11.0 (9.5-13.5) fL Neut % (Auto) 61.6 (43.0-75.0) % Lymph % (Auto) 26.9 (20.5-60.0) % [place] % (Auto) 6.0 (1.7-12.0) % Eos % (Auto) 4.1 (0.9-7.0) % Baso % (Auto) 0.7 (0.2-2.0) % Neut # (Auto) 5.6 (1.4-6.5) 10^3/uL Lymph # (Auto) 2.4 (1.2-3.8) 10^3/uL [place] # (Auto) 0.5 (0.3-0.8) 10^3/uL Eos # (Auto) 0.4 (0.0-0.7) 10^3/uL Baso # (Auto) 0.1 (0.0-0.1) 10^3/uL Abs Immat Gran (auto) 0.06 H (0.00-0.03) 10^3/uL Imm/Tot Granulo (auto) 0.7 H (0.0-0.5) % ESR 6 (<=20) mm/hr Sodium 138 (136-145) mmol/L Potassium 2.9 L* (3.5-5.1) mmol/L Chloride 101 (98-107) mmol/L Carbon Dioxide 26.4 (21.0-32.0) mmol/L Anion Gap 13.5 BUN 12.0 (7.0-18.0) mg/dL Creatinine 0.92 (0.55-1.02) mg/dL Est GFR ( Amer) >60 (>=60 mL/min/1.73m^2) Est GFR (Non-Af Amer) >60 (>=60 mL/min/1.73m^2) BUN/Creatinine Ratio 13.0 Glucose 136 H (74-106) mg/dL Calcium 8.6 (8.5-10.1) mg/dL Total Bilirubin 0.4 (0.2-1.0) mg/dL AST 63 H (15-37) U/L ALT 133 H (14-59) U/L Alkaline Phosphatase 130 H (46-116) U/L C-Reactive Protein 1.21 H (<=0.50) mg/dL Total Protein 7.3 (6.4-8.2) g/dL Albumin 3.8 (3.4-5.0) g/dL Globulin 3.5 g/dL Albumin/Globulin Ratio 1.1 Serum HCG, Qual Negative (NEGATIVE) Imaging Data CT scan - head: Radiologist's impression: ITS Impressions Head CT 04/01/24 20:28 IMPRESSION: No acute intracranial process. Electronically authenticated by: VICTOR HUGO CASTANO Date: 04/01/2024 21:36 ECG Data Attestation: I personally reviewed and interpreted this ECG as follows: (Normal sinus rhythm at a rate of 92, no acute ST elevation or ectopy. EKG reviewed by attending physician) Discharge Plan Discharge Chief Complaint: Neuro Symptoms/Deficit Clinical Impression: Headache, Nausea & vomiting, Paresthesia, Anxiety Patient Disposition: Home, Self-Care Time of Disposition Decision: 22:06 Prescriptions / Home Meds: No Action albuterol sulfate 90 mcg/actuation HFA aerosol inhaler 2 inh INHALATION Q4H PRN (Reason: shortness of breath or wheezing) bupropion HCl 150 mg tablet sustained-release 12 hr 150 mg PO BID Vraylar 4.5 mg capsule 4.5 mg PO QPM epinephrine 0.3 mg/0.3 mL auto-injector 0.3 ml subcut Q4H PRN (Reason: anaphylaxis) ibuprofen 800 mg tablet 800 mg PO Q8H PRN (Reason: pain) 14 Days Qty: 40 0RF ondansetron 4 mg tablet,disintegrating 4 mg PO Q8H PRN (Reason: nausea and vomiting) alprazolam 0.5 mg tablet 0.5 mg PO BID cephalexin 250 mg capsule 250 mg PO Q12H PRN (Reason: uti) Premarin 0.625 mg/gram cream 0.625 mg vaginal QDAY dextroamphetamine-amphetamine 30 mg capsule,extended release 24hr 30 mg PO QDAY escitalopram oxalate 20 mg tablet 20 mg PO QDAY meloxicam 15 mg tablet 15 mg PO QDAY phentermine 37.5 mg tablet 37.5 mg PO QDAY Print Language: Guamanian Instructions: Acute Headache (ED), Acute Nausea and Vomiting (ED), Paresthesia (ED), Anxiety (ED) Referrals: GIOVANI HAGEN [Primary Care Provider] - 1 week Discharge Date/Time: 04/01/24 22:28 Documented by User: Toribio Gil 04/02/24 00:02 HPI HPI - General Adult General Chief complaint: Neuro Symptoms/Deficit Stated complaint: TINGLING L ARM, ELEV BP Time Seen by Provider: 04/01/24 20:10 Related Data Home Medications ?Medication ?Instructions ?Recorded ?Confirmed albuterol sulfate 90 mcg/actuation 2 inh inhalation Q4H PRN shortness 02/06/23 03/17/24 aerosol inhaler of breath or wheezing bupropion HCl 150 mg tablet,12 hr 150 mg PO BID 02/06/23 03/17/24 sustained-release cariprazine 4.5 mg capsule 4.5 mg PO QPM 02/06/23 03/17/24 (Vraylar) epinephrine 0.3 mg/0.3 mL 0.3 ml subcut Q4H PRN anaphylaxis 02/06/23 03/17/24 injection, auto-injector ondansetron 4 mg disintegrating 4 mg PO Q8H PRN nausea and vomiting 02/28/23 03/17/24 tablet alprazolam 0.5 mg tablet 0.5 mg PO BID 03/17/24 03/17/24 cephalexin 250 mg capsule 250 mg PO Q12H PRN uti 03/17/24 03/17/24 conjugated estrogens 0.625 mg/gram 0.625 mg vaginal QDAY 03/17/24 03/17/24 vaginal cream (Premarin) dextroamphetamine-amphetamine ER 30 mg PO QDAY 03/17/24 03/17/24 30 mg 24hr capsule,extend release escitalopram oxalate 20 mg tablet 20 mg PO QDAY 03/17/24 03/17/24 meloxicam 15 mg tablet 15 mg PO QDAY 03/17/24 03/17/24 phentermine 37.5 mg tablet 37.5 mg PO QDAY 03/17/24 03/17/24 Previous Rx's ?Medication ?Instructions ?Recorded ibuprofen 800 mg tablet 800 mg PO Q8H PRN pain 14 days #40 02/10/23 tabs Allergies Allergy/AdvReac Type Severity Reaction Status Date / Time cat dander Allergy Anaphylaxis Verified 03/17/24 20:22 Iodinated Contrast Media Allergy Hives Verified 03/17/24 20:22 Opioid HPI Opioid Management Most Recent Opioid Data: Last Pain Scale 7 03/17/24 20:50 03/17/24 PFSH PFSH Medical History (Updated 04/01/24 @ 22:06 by Toribio Gil) 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 - depression (ICD-10) Ovarian cyst ?N83.209 - Unspecified ovarian cyst, unspecified side (ICD-10) HELLP (hemolytic anemia/elev liver enzymes/low platelets in ) ?O14.20 - HELLP syndrome (HELLP), unspecified trimester (ICD-10) Gestational hypertension ?O13.9 - Gestational [-induced] hypertension without significant proteinuria, unspecified trimester (ICD-10) Dizziness ?R42 - Dizziness and giddiness (ICD-10) Vitamin D deficiency ?E55.9 - Vitamin D deficiency, unspecified (ICD-10) Urinary tract infection ?N39.0 - Urinary tract infection, site not specified (ICD-10) Urinary frequency ?R35.0 - Frequency of micturition (ICD-10) Hypercholesterolemia ?E78.00 - Pure hypercholesterolemia, unspecified (ICD-10) Osteoarthritis, knee ?M17.9 - Osteoarthritis of knee, unspecified (ICD-10) Gastroparesis ?K31.84 - Gastroparesis (ICD-10) GERD (gastroesophageal reflux disease) ?K21.9 - Gastro-esophageal reflux disease without esophagitis (ICD-10) Dysuria ?R30.0 - Dysuria (ICD-10) Enlarged thyroid ?E04.9 - Nontoxic goiter, unspecified (ICD-10) Headache ?R51.9 - Headache, unspecified (ICD-10) Skin pain ?R20.8 - Other disturbances of skin sensation (ICD-10) Sciatica ?M54.30 - Sciatica, unspecified side (ICD-10) Poor concentration ?R41.840 - Attention and concentration deficit (ICD-10) ENGLISH (nonalcoholic steatohepatitis) ?K75.81 - Nonalcoholic steatohepatitis (ENGLISH) (ICD-10) Kidney stones ?N20.0 - Calculus of kidney (ICD-10) Mood swings ?R45.86 - Emotional lability (ICD-10) Sinusitis ?J32.9 - Chronic sinusitis, unspecified (ICD-10) Insomnia ?G47.00 - Insomnia, unspecified (ICD-10) Hypersexuality ?F52.8 - Other sexual dysfunction not due to a substance or known physiological condition (ICD-10) Hyperglycemia ?R73.9 - Hyperglycemia, unspecified (ICD-10) Elevated liver enzymes ?R74.8 - Abnormal levels of other serum enzymes (ICD-10) Dysphagia ?R13.10 - Dysphagia, unspecified (ICD-10) Diverticulitis ?K57.92 - Diverticulitis of intestine, part unspecified, without perforation or abscess without bleeding (ICD-10) Bipolar 1 disorder ?F31.9 - Bipolar disorder, unspecified (ICD-10) Attention deficit hyperactivity disorder ?F90.9 - Attention-deficit hyperactivity disorder, unspecified type (ICD-10) Abnormal involuntary movement ?R25.9 - Unspecified abnormal involuntary movements (ICD-10) Endometriosis ?N80.9 - Endometriosis, unspecified (ICD-10) Dyspareunia Pelvic pain ?R10.2 - Pelvic and perineal pain (ICD-10) History of blood transfusion ?Z92.89 - Personal history of other medical treatment (ICD-10) Anemia ?D64.9 - Anemia, unspecified (ICD-10) PTSD (post-traumatic stress disorder) ?F43.10 - Post-traumatic stress disorder, unspecified (ICD-10) Depression ?F32.A - Depression, unspecified (ICD-10) Anxiety ?F41.9 - Anxiety disorder, unspecified (ICD-10) COVID-19 ?U07.1 - COVID-19 (ICD-10) Asthma ?J45.909 - Unspecified asthma, uncomplicated (ICD-10) Migraine ?G43.909 - Migraine, unspecified, not intractable, without status migrainosus (ICD-10) Heartburn ?R12 - Heartburn (ICD-10) Constipation ?K59.00 - Constipation, unspecified (ICD-10) IBS (irritable bowel syndrome) ?K58.9 - Irritable bowel syndrome without diarrhea (ICD-10) Tachycardia ?R00.0 - Tachycardia, unspecified (ICD-10) Syncope ?R55 - Syncope and collapse (ICD-10) Surgical History (Updated 02/06/23 @ 11:25 by Lindsey Quintero NP) History of esophagogastroduodenoscopy (EGD) ?Z98.890 - Other specified postprocedural states (ICD-10) History of colonoscopy ?Z98.890 - Other specified postprocedural states (ICD-10) History of hysterectomy ?Z90.710 - Acquired absence of both cervix and uterus (ICD-10) History of section ?Z98.891 - History of uterine scar from previous surgery (ICD-10) Family History (Updated 02/06/23 @ 11:25 by Lindsey Quintero NP) Other Family history of diabetes mellitus Family history of hypertension Family history of ovarian cancer Social History Within the past year, how often did you have a drink containing alcohol: 2-4 times a month Smoking status: Former smoker Non-prescribed substance use: denies use 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 Highest level of school completed/degree received: high school graduate Little interest or pleasure in doing things: not at all Feeling down, depressed, or hopeless: not at all Exam Constitutional Vital Signs, click to edit/add: Last Vital Signs Temp 98.3 F 04/01/24 20:16 Pulse 103 H 04/01/24 22:00 Resp 18 04/01/24 21:12 BP 144/96 H 04/01/24 22:03 Pulse Ox 98 04/01/24 22:00 O2 Del Method Room Air 04/01/24 21:12 Course Vital Signs Vital signs: Vital Signs Temperature 98.3 F 04/01/24 20:16 Pulse Rate 108 H 04/01/24 20:16 Respiratory Rate 18 04/01/24 20:16 Blood Pressure 142/101 H 04/01/24 20:16 Pulse Oximetry 99 04/01/24 20:16 Oxygen Delivery Method Room Air 04/01/24 20:16 Temperature 98.3 F 04/01/24 20:16 Pulse Rate 103 H 04/01/24 22:00 Respiratory Rate 18 04/01/24 21:12 Blood Pressure 144/96 H 04/01/24 22:03 Pulse Oximetry 98 04/01/24 22:00 Oxygen Delivery Method Room Air 04/01/24 21:12 Medical Decision Making [facility] Narrative Medical decision making narrative: 2136: Patient was ordered to have IV fluids, Reglan, Benadryl, Solu-Medrol for her headache and given her symptoms, she will require CT head. She has an allergy to contrast so she was given additional Pepcid with a headache medications to premedicate her for the contrast studies. CT of the brain without contrast was obtained and negative. Lab studies revealed a potassium of 2.9, she was given Zofran because she still complained of nausea and vomted once and then was given oral potassium. Her noncontrast head CT is negative - exam remains without any neurological deficit therefore angios of the head and neck are not indicated at this time. Patient does have evidence of transaminitis, this appears to be chronic for her and she has had this in the past. She does not complain of abdominal pain at this time. Case is turned over to attending physician at this time. Attending physician note - I saw and examined the patient. She developed nausea and frontal headache after being evaluated by her PCP this morning - at that time she was symptoms free and had a negative workup, she told me. hen, about 2 hours ago, she developed tingling in both hands and both feet, feeling as though it emanated from her left shoulder. She never developed chest pain, shortness of breath, weakness or paralysis. She has history of anxiety and her PCP just told her this morning that, because t has been well controlled, she no longer needs to take Xanax. In our ED tonight, she received several meds to treat her headache and nausea. After I reviewed her results and examined her, I determined that she did not have a neurological emergency requiring additional imaging, specifically did not need head and neck CT angio at this time and with her history of allergy to iodinated contrast, I believe the risk outweighs benefit of getting CTA head and neck. Patient was given oral ativan for anxiety and discharged home with recommendation to see her PCP for follow up. Emergency return if she develops neurological deficits. SHARED APC VISIT, PHYSICIAN ATTESTATION: [id number] I performed a substantive part of the MDM during the patient?s E/M visit. I personally evaluated and examined the patient. I personally made or approved the documented management plan and acknowledge its risk of complications. Lab Data Labs: Lab Results 04/01/24 Range/Units 20:45 WBC 9.0 (4.0-11.0) 10^3/uL RBC 4.58 (4.20-5.40) 10^6/uL Hgb 14.8 (12.0-16.0) g/dL Hct 43.6 (36.0-48.0) % MCV 95.2 (81.0-99.0) fL MCH 32.3 (26.7-34.0) pg MCHC 33.9 (29.9-35.2) g/dL RDW 12.8 (11.0-15.0) % Plt Count 240 (150-450) 10^3/uL MPV 11.0 (9.5-13.5) fL Neut % (Auto) 61.6 (43.0-75.0) % Lymph % (Auto) 26.9 (20.5-60.0) % [place] % (Auto) 6.0 (1.7-12.0) % Eos % (Auto) 4.1 (0.9-7.0) % Baso % (Auto) 0.7 (0.2-2.0) % Neut # (Auto) 5.6 (1.4-6.5) 10^3/uL Lymph # (Auto) 2.4 (1.2-3.8) 10^3/uL [place] # (Auto) 0.5 (0.3-0.8) 10^3/uL Eos # (Auto) 0.4 (0.0-0.7) 10^3/uL Baso # (Auto) 0.1 (0.0-0.1) 10^3/uL Abs Immat Gran (auto) 0.06 H (0.00-0.03) 10^3/uL Imm/Tot Granulo (auto) 0.7 H (0.0-0.5) % ESR 6 (<=20) mm/hr Sodium 138 (136-145) mmol/L Potassium 2.9 L* (3.5-5.1) mmol/L Chloride 101 (98-107) mmol/L Carbon Dioxide 26.4 (21.0-32.0) mmol/L Anion Gap 13.5 BUN 12.0 (7.0-18.0) mg/dL Creatinine 0.92 (0.55-1.02) mg/dL Est GFR ( Amer) >60 (>=60 mL/min/1.73m^2) Est GFR (Non-Af Amer) >60 (>=60 mL/min/1.73m^2) BUN/Creatinine Ratio 13.0 Glucose 136 H (74-106) mg/dL Calcium 8.6 (8.5-10.1) mg/dL Total Bilirubin 0.4 (0.2-1.0) mg/dL AST 63 H (15-37) U/L ALT 133 H (14-59) U/L Alkaline Phosphatase 130 H (46-116) U/L C-Reactive Protein 1.21 H (<=0.50) mg/dL Total Protein 7.3 (6.4-8.2) g/dL Albumin 3.8 (3.4-5.0) g/dL Globulin 3.5 g/dL Albumin/Globulin Ratio 1.1 Serum HCG, Qual Negative (NEGATIVE) Imaging Data CT scan - head: Radiologist's impression: ITS Impressions Head CT 04/01/24 20:28 IMPRESSION: No acute intracranial process. Electronically authenticated by: VICTOR HUGO CASTANO Date: 04/01/2024 21:36 ECG Data Interpretation: EKG interpretation: Emergency Department physician interpretation. Normal sinus rhythm at 92bpm. Normal axis, normal intervals and no ST segment elevation or depression. Normal EKG Discharge Plan Discharge Chief Complaint: Neuro Symptoms/Deficit Clinical Impression: Headache, Nausea & vomiting, Paresthesia, Anxiety Patient Disposition: Home, Self-Care Time of Disposition Decision: 22:06 Prescriptions / Home Meds: No Action albuterol sulfate 90 mcg/actuation HFA aerosol inhaler 2 inh INHALATION Q4H PRN (Reason: shortness of breath or wheezing) bupropion HCl 150 mg tablet sustained-release 12 hr 150 mg PO BID Vraylar 4.5 mg capsule 4.5 mg PO QPM epinephrine 0.3 mg/0.3 mL auto-injector 0.3 ml subcut Q4H PRN (Reason: anaphylaxis) ibuprofen 800 mg tablet 800 mg PO Q8H PRN (Reason: pain) 14 Days Qty: 40 0RF ondansetron 4 mg tablet,disintegrating 4 mg PO Q8H PRN (Reason: nausea and vomiting) alprazolam 0.5 mg tablet 0.5 mg PO BID cephalexin 250 mg capsule 250 mg PO Q12H PRN (Reason: uti) Premarin 0.625 mg/gram cream 0.625 mg vaginal QDAY dextroamphetamine-amphetamine 30 mg capsule,extended release 24hr 30 mg PO QDAY escitalopram oxalate 20 mg tablet 20 mg PO QDAY meloxicam 15 mg tablet 15 mg PO QDAY phentermine 37.5 mg tablet 37.5 mg PO QDAY Print Language: Guamanian Instructions: Acute Headache (ED), Acute Nausea and Vomiting (ED), Paresthesia (ED), Anxiety (ED) Referrals: GIOVANI HAGEN [Primary Care Provider] - 1 week Discharge Date/Time: 04/01/24 22:28
[2024-04-01] MEDS: METHYLPREDNISOLONE SOD SUCC PF 125 MG/2 ML VIAL IVP (20:53)
[2024-04-01] MEDS: DIPHENHYDRAMINE HCL 50 MG/ML VIAL 25 MG IV (20:53)
[2024-04-01] MEDS: METOCLOPRAMIDE HCL 10 MG/2 ML VIAL IVP (20:53)
[2024-04-01] MEDS: FAMOTIDINE/PF 20 MG/2 ML VIAL IV (20:54)
[2024-04-01 21:01] LABS: Basophils Absolute Auto 0.1 10^3/uL (0.0-0.1); Basophils Percent Auto 0.7 % (0.2-2.0); Eosinophils Absolute Auto 0.4 10^3/uL (0.0-0.7); Eosinophils Percent Auto 4.1 % (0.9-7.0); Hematocrit 43.6 % (36.0-48.0); Hemoglobin 14.8 g/dL (12.0-16.0); Immature Granulocytes Abs Auto 0.06 10^3/uL (0.00-0.03); Immature Granulocytes Pct Auto 0.7 % (0.0-0.5); Lymphocytes Absolute Auto 2.4 10^3/uL (1.2-3.8); Lymphocytes Percent Auto 26.9 % (20.5-60.0); Mean Corpuscular HGB Conc 33.9 g/dL (29.9-35.2); Mean Corpuscular Hemoglobin 32.3 pg (26.7-34.0); Mean Corpuscular Volume 95.2 fL (81.0-99.0); Monocytes Absolute Auto 0.5 10^3/uL (0.3-0.8); Neutrophils Absolute Auto 5.6 10^3/uL (1.4-6.5); Neutrophils Percent Auto 61.6 % (43.0-75.0); Platelet Count 240 10^3/uL (150-450); Red Blood Count 4.58 10^6/uL (4.20-5.40); Red Cell Distribution Width 12.8 % (11.0-15.0)
[2024-04-01 21:08] LABS: Erythrocyte Sedimentation Rate 6 mm/hr (<=20)
[2024-04-01 21:15] LABS: Alanine Aminotransferase 133 U/L (14-59); Albumin Globulin Ratio 1.1; Albumin Level 3.8 g/dL (3.4-5.0); Alkaline Phosphatase 130 U/L (46-116); Anion Gap 13.5; Aspartate Amino Transferase 63 U/L (15-37); Bilirubin Total 0.4 mg/dL (0.2-1.0); C Reactive Protein 1.21 mg/dL (<=0.50); Calcium 8.6 mg/dL (8.5-10.1); Carbon Dioxide 26.4 mmol/L (21.0-32.0); Chloride 101 mmol/L (98-107); Estimated GFR (African America >60 (>=60 mL/min/1.73m^2); Estimated GFR (Non-African Ame >60 (>=60 mL/min/1.73m^2); Globulin 3.5 g/dL; Glucose 136 mg/dL (74-106); Sodium 138 mmol/L (136-145); Total Protein 7.3 g/dL (6.4-8.2)
[2024-04-01 21:23] LABS: Potassium 2.9 mmol/L (3.5-5.1)
[2024-04-01 21:26] LABS: HCG Qualitative NEGATIVE (NEGATIVE); Internal Control Within Normal Limits
[2024-04-01] MEDS: POTASSIUM CHLORIDE 10 MEQ ER TABLET 40 MEQ PO (21:58)
[2024-04-01] MEDS: ONDANSETRON PF 4 MG/2 ML VIAL IV (21:58)
[2024-04-01] MEDS: LORAZEPAM 0.5 MG TABLET PO (22:14)
== END 2024-04-01 22:28 | disposition home or self-care (01) ==
PROVIDERS: Physician Assistant; Emergency Provider Emergency Medicine; PCP Family Medicine
DX: R51.9 Headache, unspecified (principal); R11.2 Nausea with vomiting, unspecified; R20.2 Paresthesia of skin; F41.9 Anxiety disorder, unspecified; Z90.710 Acquired absence of both cervix and uterus; Z87.891 Personal history of nicotine dependence
CPT/HCPCS: 36415; 70450; 80053; 84703; 85025; 85652; 86140; 93005; 96374; 96375; 99285; J1200; J2405; J2765; J2919

== ENCOUNTER 2024-04-02 08:02 | Outpatient (OUT) | payer OTHER, SELFPAY | END 2024-04-02 08:03 | disposition home or self-care (01) | LOC: PST 08:03 | PROVIDERS: PCP Family Medicine; Visit Provider Podiatrist Foot & Ankle Surgery | DX: Z01.818 Encounter for other preprocedural examination (principal); S93.491A Sprain of other ligament of right ankle, initial encounter; M25.371 Other instability, right ankle ==

== ENCOUNTER 2024-05-03 13:44 | Outpatient (OUT) | payer OTHER, SELFPAY ==
--- NOTE | 2024-05-03 13:50 | MR_ITS ---
[address] [address] Patient Name: ORION HARPER MRN: [facility]:[id number] date: 1990 Sex: F Assigned Patient Location: MRI Current Patient Location: MRI Accession/Order Number: [id number] Exam Date: 05/03/2024 14:00 Report Date: 05/03/2024 16:01 At the request of: NAKIA ARMENTA Procedure: MR cervical spine wo con EXAMINATION: MR cervical spine wo con HISTORY: Cervical Radiculopathy COMPARISON: No relevant comparison available. TECHNIQUE: A variety of imaging planes and parameters were utilized for visualization of suspected pathology without and/or with intravenous Dotarem contrast based on examination type. FINDINGS: CRANIOCERVICAL AREA: Normal foramen magnum with no Chiari malformation. PARASPINAL AREA: Normal with no visible mass. BONES: No fracture, pars defect, or osseous lesion. CORD: Normal caliber, contour, and signal intensity. CERVICAL DISC LEVELS: C2-C3: Early degenerative disc disease is present without focal protrusion or neural impingement. C3-C4: Mild diffuse disc bulging without disc height reduction. Mild central canal and bilateral foramen narrowing. No significant facet arthropathy. C4-C5: Mild diffuse disc bulging and disc height reduction. Mild central canal and bilateral foramen narrowing. No significant facet arthropathy. C5-C6: Mild diffuse disc bulging and disc height reduction. Mild central canal and bilateral foramen narrowing. No significant facet arthropathy. C6-C7: Mild diffuse disc bulging and disc height reduction. Mild central canal and bilateral foramen narrowing. No significant facet arthropathy. C7-T1:. Mild diffuse disc bulging and disc height reduction. Mild central canal and bilateral foramen narrowing. No significant facet arthropathy. MR/MR cervical spine wo con IMPRESSION: 1. Multilevel mild degenerative disc disease resulting in mild foramen and mild central canal narrowing. No specific levels to account for patient's symptoms. Electronically authenticated by: LAURIE CRUZ Date: 05/03/2024 16:01
== END 2024-05-03 13:45 | disposition home or self-care (01) ==
LOC: MRI 13:44
PROVIDERS: PCP Family Medicine; Visit Provider Physician Assistant
DX: M54.12 Radiculopathy, cervical region (principal); M50.30 Other cervical disc degeneration, unspecified cervical region
CPT/HCPCS: 72141

== ENCOUNTER 2024-05-08 12:42 | Outpatient (OUT) | payer OTHER, SELFPAY ==
[2024-05-08 13:23] LABS: Basophils Percent Auto 0.4 % (0.2-2.0); Eosinophils Absolute Auto 0.2 10^3/uL (0.0-0.7); Eosinophils Percent Auto 2.2 % (0.9-7.0); Hematocrit 41.2 % (36.0-48.0); Hemoglobin 13.8 g/dL (12.0-16.0); Immature Granulocytes Abs Auto 0.19 10^3/uL (0.00-0.03); Immature Granulocytes Pct Auto 1.9 % (0.0-0.5); Lymphocytes Percent Auto 30.1 % (20.5-60.0); Mean Corpuscular HGB Conc 33.5 g/dL (29.9-35.2); Mean Corpuscular Hemoglobin 32.7 pg (26.7-34.0); Mean Corpuscular Volume 97.6 fL (81.0-99.0); Mean Platelet Volume 10.8 fL (9.5-13.5); Monocytes Absolute Auto 0.7 10^3/uL (0.3-0.8); Monocytes Percent Auto 6.6 % (1.7-12.0); Neutrophils Absolute Auto 5.8 10^3/uL (1.4-6.5); Neutrophils Percent Auto 58.8 % (43.0-75.0); Platelet Count 206 10^3/uL (150-450); Red Blood Count 4.22 10^6/uL (4.20-5.40); Red Cell Distribution Width 12.9 % (11.0-15.0); White Blood Count 9.9 10^3/uL (4.0-11.0)
[2024-05-08 13:31] LABS: INR 0.95; Partial Thromboplastin Time 24.2 sec (22.3-36.2); Prothrombin Time 10.1 sec (9.0-11.6)
[2024-05-08 13:38] LABS: Alanine Aminotransferase 171 U/L (14-59); Albumin Level 3.4 g/dL (3.4-5.0); Alkaline Phosphatase 160 U/L (46-116); Anion Gap 10.9; Aspartate Amino Transferase 66 U/L (15-37); BUN Creatinine Ratio 12.9; Bilirubin Direct 0.1 mg/dL (0.0-0.2); Bilirubin Total 0.2 mg/dL (0.2-1.0); Calcium 8.4 mg/dL (8.5-10.1); Carbon Dioxide 24.9 mmol/L (21.0-32.0); Chloride 106 mmol/L (98-107); Estimated GFR (African America >60 (>=60 mL/min/1.73m^2); Estimated GFR (Non-African Ame >60 (>=60 mL/min/1.73m^2); Globulin 3.4 g/dL; Glucose 146 mg/dL (74-106); Potassium 3.8 mmol/L (3.5-5.1); Sodium 138 mmol/L (136-145); Total Protein 6.8 g/dL (6.4-8.2)
== END 2024-05-08 12:43 | disposition home or self-care (01) ==
LOC: PST 12:42
PROVIDERS: PCP Family Medicine; Visit Provider Obstetrics & Gynecology
DX: Z01.812 Encounter for preprocedural laboratory examination (principal); R10.2 Pelvic and perineal pain; Z87.42 Personal history of other diseases of the female genital tract; N80.8 Other endometriosis
CPT/HCPCS: 80048; 80076; 85025; 85610; 85730

== ENCOUNTER 2024-05-23 10:46 | Day surgery (SDC) | payer OTHER, SELFPAY ==
[2024-05-08 13:08] VITALS: BP 143/94; PULSE 106; TEMP 36.4; O2SAT 97; BMI 36.4
[2024-05-23] VITALS (14 sets, daily range): BP systolic 102–146; BP diastolic 68–98; PULSE 86–109; TEMP 36.8–37.1; O2SAT 94–98; BMI 35.8
[2024-05-23 10:53] LABS: Basophils Percent Auto 0.4 % (0.2-2.0); Eosinophils Absolute Auto 0.4 10^3/uL (0.0-0.7); Eosinophils Percent Auto 4.4 % (0.9-7.0); Hematocrit 41.6 % (36.0-48.0); Immature Granulocytes Abs Auto 0.13 10^3/uL (0.00-0.03); Immature Granulocytes Pct Auto 1.6 % (0.0-0.5); Lymphocytes Absolute Auto 2.7 10^3/uL (1.2-3.8); Lymphocytes Percent Auto 33.8 % (20.5-60.0); Mean Corpuscular HGB Conc 33.7 g/dL (29.9-35.2); Mean Corpuscular Hemoglobin 32.6 pg (26.7-34.0); Mean Corpuscular Volume 96.7 fL (81.0-99.0); Mean Platelet Volume 10.4 fL (9.5-13.5); Monocytes Absolute Auto 0.5 10^3/uL (0.3-0.8); Monocytes Percent Auto 5.9 % (1.7-12.0); Neutrophils Absolute Auto 4.4 10^3/uL (1.4-6.5); Neutrophils Percent Auto 53.9 % (43.0-75.0); Platelet Count 257 10^3/uL (150-450); Red Cell Distribution Width 13.2 % (11.0-15.0); White Blood Count 8.1 10^3/uL (4.0-11.0)
--- OUTSIDE RECORDS SUMMARY | 2024-05-23 11:05 | XMS_ITS | CCD ---
Author Organization [facility] Care Team Providers Care [employer] Designer Name Role Phone OZIEL MONTEIRO Referring Unavailable GIOVANI HAGEN Primary Care Unavailable MD Erwin Hylton Attending Provider [phone] MD Giovani Hagen Primary Care Provider [phone] Giovani Hagen Primary Care Provider Erwin Hylton Unavailable GIOVANI HAGEN Primary Care Physician PAYTONK ., DR SIMON Consulting Unavailabl e HIEU, [...] Unavailable Jed, Jackson Consulting Unavailable POPPY ., AYLEEN Consulting Unavailable REINECK, DR RONALD Mcgovern Attending Unavailabl e REINECK, DR RONALD Mcgovern Admitting Unavailabl e MISC, DR MCKEON Primary Care Unavailable REDMARIA DOLORES WEBSTER Consulting Unavailable ASAAD, IMAD Consulting Unavailable HIEU, [...] Provider MD Giovani Hagen Primary Care Provider Asaad, Imad Admitting Unavailable Asaad, Imad Attending Unavailable Molina, [facility] Primary Care Unavailable Asaad, Imad Admitting Unavailable Asaad, Imad Attending Unavailable [facility] Giovani Hagen MD Primary Care Provider BLOODMARY Admitting Unavailable BLOODMARY Attending Unavailable JACKSON MONTENEGRO Consulting Unavailable SONIYA PATEL Referring Unavailable HIEU, KIRANEN Primary Care Unavailable MAKENNA AMAYA Consulting Unavailable Giovani Hagen MD Primary Care Provider Madhuri MISHRA Attending Unavailable BHAVESH DEJESUS Attending Unavailable Giovani Hagen MD Unavailable Giovani Hagen MD Primary Care Provider [phone] Deena Lyn CNP Unavailable SOLO MORA Referring Unavailable HIEU, RUGEN MABALAY Primary Care Unavailable YAPATRICIARO, ILIANA Referring Unavailable HIEU, RUGEN MABALAY Primary Care Unavailable HIEU, RUGEN MABALAY Primary Care Unavailable KOCHAR, ARSHNEEL Referring Unavailable HIEU, RUGEN MABALAY Primary Care Unavailable KOCHAR, ARSHNEEL Attending Unavailable HIEU, RUGEN MABALAY Primary Care Unavailable HIEU, RUGEN MABALAY Primary Care Unavailable YAEDWARDORARO, ILIANA Referring Unavailable HIEU, RUGEN MABALAY Primary Care Unavailable YAPATRICIARO ILIANA Attending Unavailable HIEU, RUGEN MABALAY Primary Care Unavailable LYDIA KELLEY Attending Unavailab MILTON Ruff Attending Unavailable MILTON FRAIRE Referring Unavailable CADE WILCOX Attending Unavailable HIEU, RUGEN M Attending Unavailable HIEU, RUGEN M Attending Unavailable HIEU, RUGEN M Attending Unavailable HIEU, RUGEN M Attending Unavailable DARWIN STARR Attending Unavailable ZHEN BURGESS Attending Unavailable HIEU, RUGEN M Referring Unavailable HIEU, RUGEN M Attending Unavailable ARUN HERNADEZ Attending Unavailable HIEU, RUGEN M Referring Unavailable ZHEN BURGESS Attending Unavailable HIEU, RUGEN M Referring Unavailable ARUN HERNADEZ Attending Unavailable HIEU, RUGEN M Referring Unavailable KELBLEYANITRA Attending Unavailable HIEU, RUGEN M Referring Unavailable KELBLEYANITRA Attending Unavailable HIEU, RUGEN M Referring Unavailable BRINKARUN Attending Unavailable HIEU, RUGEN M Referring Unavailable BRINKARUN Attending Unavailable HIEU, RUGEN M Referring Unavailable KELBLEY, ANITRA Attending Unavailable HIEU, RUGEN M Referring Unavailable DARWIN STARR Attending Unavailable ZHEN BURGESS Attending Unavailable HIEU, RUGEN M Referring Unavailable HIEU, RUGEN M Attending Unavailable DEENA LYN Attending Unavailable HIEU, RUGEN M Attending Unavailable JOSEPHINE GILMAN Attending Unavailable DARWIN STARR Attending Unavailable PRATEEK PEDRAZA Attending Unavailable HIEU, RUGEN M Referring Unavailable HIEU, RUGEN M Attending Unavailable Allergies Allergy Classification Reported Allergen(s) Allergy Type Date of Onset Reaction(s) Facility Iodine (and Iodine containting drugs) (2 sources) Iodine Drug Allergy 04-11-20 19 Swelling, Itching [facility] Iohexol (2 sources) Iohexol Drug Allergy 04-12-20 19 Itching [facility] (20 sources) Iodine; Translations: [IODINE] Drug Allergy 04-11-20 19 Swelling, Itching [facility] (20 sources) Iohexol; Translations: [IOHEXOL] Drug Allergy 04-12-20 19 Itching [facility] (1 source) Cat Propensity to adverse reactions anaphylaxis [facility] Khush Other (1 source) tree nut, unspecified Propensity to adverse reactions anaphylaxis [facility] Khush Other (1 source) peanut allergenic extract Drug Allergy [facility] (1 source) Cat/Feline Product Derivatives Drug allergy (disorder) 01-08-20 13 [facility] (1 source) No Known Medication Allergies; Translations: [No Known Medication Allergies] Propensity to adverse reactions (disorder) [facility] (20 sources) Cat Hair Extract Allergy to substance 12-01-19 Anaphylaxis [facility] (20 sources) Iodinated Contrast Media Drug Allergy 12-01-19 23 Hives [facility] (20 sources) Prednisone & Diphenhydramine Drug Allergy 10-03-19 24 [facility] Medications Current Medications Medication Drug Class(es) Dates Sig (Normalized) Sig (Original) acetaminophen 1000 mg oral tablet (3 sources) Start: 06-12-2018 take 1000 mg by mouth once daily as needed for pain Tylenol 1,000 mg, Oral, Daily, PRN as needed for pain, Refills(s) 0 Start Date: 06/12/18 Status: Ordered acetaminophen 325 mg / HYDROcodone bitartrate 5 mg oral tablet (4 sources) Opioid Agonist Start: 05-09-2024 End: 05-14-2024 take 1 tablet by mouth every six hours for pain HYDROcodone-acetami nophen ([place]) 5-325 MG tablet Indications: Cervical radiculopathy due to degenerative joint disease of spine Take 1 tablet by mouth every 6 (six) hours if needed for severe pain for up to 5 days 20 tablet 05/09/2024 05/14/2024 Active Start: 04-16-2024 End: 04-21-2024 take 1 tablet by mouth every six hours for pain HYDROcodone-acetaminophen ([place]) 5-325 MG tablet Indications: Sprain of anterior talofibular ligament of right ankle, subsequent encounter Take 1 tablet by mouth every 6 (six) hours if needed for severe pain for up to 5 days 20 tablet 04/16/2024 04/21/2024 albuterol 0.83 mg/ml inhalation solution (20 sources) beta2-Adrenergic Agonist Start: 04-16-2024 End: 04-16-2025 albuterol (2.5 MG/3ML) 0.083% nebulizer solution Indications: Moderate persistent asthmatic bronchitis with acute exacerbation (CMS/HCC) Take 3 mL (2.5 mg) by nebulization every 6 (six) hours if needed for wheezing 75 mL 11 04/16/2024 04/16/2025 Active Start: 08-31-2022 take 2 puff(s) by in halation every six hours as needed albuterol HFA [...] mg oral tablet (20 sources) Benzodiazepine Start: 05-10-2024 End: 06-09-2024 take 1 tablet by mouth in the morning ALPRAZolam (Xanax) 0.5 MG tablet Indications: Anxiety , Bipolar disorder, in partial remission, most recent episode manic (CMS/HCC) Take 1 tablet (0.5 mg) by mouth in the morning and in the evening 60 tablet 05/10/2024 06/09/2024 Active Start: 04-08-2024 End: 05-08-2024 take 1 tablet by mouth in the morning ALPRAZolam (Xanax) 0.5 MG tablet Indications: Anxiety , Bipolar disorder, in partial remission, most recent episode manic (CMS/HCC) Take 1 tablet (0.5 mg) by mouth in the morning and in the evening 60 tablet 04/08/2024 05/08/2024 Discontinued (Reorder) Start: 12-04-2023 End: 04-06-2024 take 1 tablet by mouth in the morning ALPRAZolam (Xanax) 0.5 MG tablet Indications: Anxiety , Bipolar disorder, in partial remission, most recent episode manic (CMS/HCC) Take 1 tablet (0.5 mg) by mouth in the morning and in the evening 60 tablet 01/09/2024 02/08/2024 Active Start: 02-18-2019 take 0.25 mg by [...] (20 sources) Central Nervous System Stimulant Start: 024 End: 025 take 1 capsule by mouth once daily amphetamine-dextroa mphetamine XR (Adderall XR) 30 MG 24 hr capsule Indications: Attention deficit hyperactivity disorder (ADHD), predominantly inattentive type (CMS/HCC) Take 1 capsule (30 mg) by mouth Daily Do not crush or chew. 30 capsule 04/30/2024 05/30/2024 Active bismuth subcitrate 140 mg / metroNIDAZOLE 125 mg / tetracycline hydrochloride 125 mg oral capsule (1 source) Nitroimidazole Antimicrobial, Tetracycline-class Antimicrobial Start: 023 End: 023 take 3 capsules by mouth at bedtime Bis Subcit Qpx-Unlgw-Clzevjkz (PYLERA) 140-125-125 mg per capsule Take 3 capsules by mouth before meals and at bedtime for 10 days. 120 capsule 0 07/04/2022 07/14/2022 Active Comment on above: Take 3 capsules by m outh before meals and at bedtime for 10 days. buPROPion (20 sources) Aminoketone Start: 023 Wellbutrin SR Oral, BID Start Date: 06/29/22 Status: Ordered Start: 05-25-2022 End: 12-19-2023 buPROPion SR (ZYBAN SR; WELL BUTRIN SR) 150 mg 12 hr tablet 05/25/2022 12/19/2023 Discontinued (Other) take 1 tablet by [facility] every twelve hours Wellbutrin XL 150 MG [...] Active Start: 05-01-2019 take 1 capsule by [facility] once daily Vraylar 1.5 mg oral capsule 1.5 mg = 1 cap(s), Oral, Daily Start Date: 05/01/19 Status: Ordered take 1 capsule by [facility] once daily cariprazine (VRAYLAR) 3 mg cap Take by mouth once daily. 0 Active Vraylar Active Comment on above: Take by mouth once d aily. 1 capsule. cefuroxime 500 mg oral tablet (5 sources) Cephalosporin Antibacterial Start: End: take 1 tablet by mouth in the morning cefuroxime (Ceftin) 500 MG tablet Indications: Acute bronchitis with asthma (CMS/HCC) Take 1 tablet (500 mg) by mouth in the morning and 1 tablet (500 mg) before bedtime. Do all this for 10 days. 20 tablet 04/18/2024 04/28/2024 Active cephalexin 250 mg oral capsule (20 sources) Cephalosporin Antibacterial Start: cephalexin (Keflex) 250 MG capsule TAKE 1 CAPSULE BY MOUTH AFTER INTERCOURSE TO PREVENT UTI 03/13/2024 Active Start: 12-28-2023 Keflex 250 mg Cap See Instructions, 1 cap po after intercourse to prevent UTI, # 20 cap(s), Refills(s) 2, Pharmacy: [facility]/pharmacy #[id number], 158, cm, 12/28/23 15:24:00 [...] days., # 50 cap(s), Refills(s) 0, [id number], cm, 06/29/22 8:19:00 EST, Height/Length [...] days. 60 g 1 01/22/2024 03/22/2024 Active clonazePAM 0.5 mg oral tablet (4 sources) Benzodiazepine Start: 04-01-2024 End: 05-01-2024 take 1 tablet by mouth in the morning clonazePAM (KlonoPIN) 0.5 MG tablet Indications: Tremors of nervous system Take 1 tablet (0.5 mg) by mouth in the morning and 1 tablet (0.5 mg) before bedtime. 60 tablet 04/01/2024 05/01/2024 Active 0.3 ml EPINEPHrine 1 mg/ml prefilled syringe (20 sources) alpha-Adrenergic Agonist, beta-Adrenergic Agonist, Catecholamine Start: 04-18-2023 EPINEPHrine (Adrenalin) 0.3 MG/0.3ML injection Indications: Anaphylaxis, sequela Inject 0.3 mL (0.3 mg) into the shoulder, thigh, or buttocks 1 (one) time for 1 dose 1 each 2 04/18/2023 Active EpiPen prn Activ e escitalopram 20 mg oral tablet (20 sources) Serotonin Reuptake Inhibitor Start: 11-09-2023 End: 05-13-2024 take 1 tablet by mouth once daily in the morning escitalopram (Lexapro) 20 MG tablet Indications: Bipolar disorder, in partial remission, most recent episode manic (CMS/HCC) TAKE 1 TABLET BY MOUTH EVERY DAY IN THE MORNING 30 tablet 2 05/13/2024 Active 30 actuat fluticasone furoate 0.1 mg/actuat / umeclidinium 0.0625 mg/actuat / vilanterol 0.025 mg/actuat dry powder inhaler (20 sources) Anticholinergic, Corticosteroid, beta2-Adrenergic Agonist Start: 04-16-2024 End: 05-16-2024 take 1 puff(s) by inhalation once daily Fluticasone-Umecli din-Vilant 100-62.5-25 MCG/ACT aerosol powder Indications: Moderate persistent asthmatic bronchitis with acute exacerbation (CMS/HCC) Inhale 1 puff Daily 1 each 04/16/2024 Active Start: 05-24-2022 take 1 puff(s) by inhalation once daily Xqkbafnitjp-Lfkvjcogs-Nlzgxo 100-62.5-25 MCG/ACT aerosol powder INHALE 1 PUFF INTO THE LUNGS EVERY DAY FOR 30 DAYS 05/24/2022 Active Start: 05-24-2022 End: 11-02-2022 TRELEGY ELLIPTA 100-62.5-25 mcg inhalation powder 05/24/2022 11/02/2022 Discontinued ibuprofen 800 mg oral tablet (2 sources) Nonsteroidal Anti-inflammatory Drug Start: 06-12-2018 take 800 mg by mouth once daily as needed for pain ibuprofen 800 mg, Oral, Daily, PRN as needed for pain, Refills(s) 0 Start Date: 06/12/18 Status: Ordered montelukast 10 mg oral tablet (20 sources) Leukotriene Receptor Antagonist Start: 04-01-2024 End: 04-01-2025 take 1 tablet by mouth at bedtime montelukast (Singulair) 10 MG tablet Indications: Mild intermittent asthma without complication (CMS/HCC) Take 1 tablet (10 mg) by mouth at bedtime 30 tablet 11 04/01/2024 04/01/2025 Active phentermine hydrochloride 37.5 mg oral tablet (20 sources) Sympathomimetic Amine Anorectic Start: 12-04-2023 End: 05-30-2024 take 1 tablet by mouth before mealtime phentermine (Adipex-P) 37.5 MG tablet Indications: Obesity (BMI 35.0-39.9 without comorbidity) Take 1 tablet (37.5 mg) by mouth in the morning. Take before meals. 30 tablet 04/30/2024 05/30/2024 Active traMADol hydrochloride 50 mg oral tablet (8 sources) Opioid Agonist Start: 03-27-2024 End: 04-01-2024 take 2 tablets by mouth every six hours for pain traMADol (Ultram) 50 MG tablet Indications: Acute right ankle pain Take 2 tablets (100 mg) by mouth every 6 (six) hours if needed for severe pain for up to 5 days 40 tablet 03/27/2024 04/01/2024 Active Start: 06-29-2022 tramadol Oral Start Date: 06/29/22 Status: Ordered Completed/Discontinued Medications Medication Drug Class(es) Dates Sig (Normalized) Sig (Original) amoxicillin 875 mg oral tablet (1 source) Penicillin-class Antibacterial Start: 05-03-2019 take 1 tablet by mouth every twelve hours Amoxicillin 875 MG 1 tablet Orally Twice a day for 7 days Apr, Not-Taking baclofen 10 mg oral tablet (20 sources) gamma-Aminobutyric Acid-ergic Agonist Start: 12-26-2023 End: 05-09-2024 take 1 tablet by mouth in the [...] (10 mg) before bedtime. 90 tablet 12/26/2023 05/09/2024 Discontinued (Other) Start: 06-29-2022 baclofen Oral, TID Start Date: 06/29/22 Status: Ordered Start: 05-25-2022 End: 11-02-2022 baclofen (LIORESAL) 10 mg ta blet 05/25/2022 11/02/2022 Discontinued benzonatate 100 mg oral capsule (9 sources) Non-narcotic Antitussive Start: 04-22-2024 End: 05-09-2024 take 1 capsule by mouth three times daily as needed for cough benzonatate (Tessalon Perles) 100 MG capsule Indications: Mild intermittent asthma without complication (CMS/HCC) Take 1 capsule (100 mg) by mouth 3 (three) times a day as needed for cough for up to 10 days Do not crush or chew. 20 capsule 04/22/2024 05/09/2024 Discontinued (Other) cholecalciferol 0.125 mg oral capsule (8 sources) Vitamin D Start: 02-06-2023 End: 01-22-2024 take 1 capsule by mouth once in the morning cholecalciferol (Vitamin D-3) 125 MCG (5000 UT) capsule Indications: Vitamin D deficiency Take 1 capsule (125 mcg) by mouth in the morning. 90 capsule 3 02/06/2023 01/22/2024 Discontinued diclofenac sodium 75 mg delayed release oral tablet (19 sources) Nonsteroidal Anti-inflammatory Drug Start: 03-19-2024 End: 05-09-2024 diclofenac (Voltaren) 75 MG EC tablet every 12 (twelve) hours 03/19/2024 05/09/2024 Discontinued (Other) Doxepin (16 sources) Tricyclic Antidepressant Start: 12-07-2021 End: 11-02-2022 doxepin HCl (DOXEPIN ORAL) 12/07/2021 11/02/2022 Discontinued Start: 12-07-2021 End: 11-02-2022 doxepin HCl (DOXEPIN ORAL) Start: 12-07-2021 doxepin HCl (D OXEPIN ORAL) doxycycline hyclate 100 mg oral capsule (13 sources) Tetracycline-class Drug Start: 03-20-2024 End: 05-19-2024 doxycycline (Vibramycin) 100 MG capsule Indications: Cystitis Take 1 capsule (100 mg) by mouth in the morning and 1 capsule (100 mg) before bedtime. Take with at least 8 ounces (large glass) of water, do not lie down for 30 minutes after. 120 capsule 03/20/2024 04/18/2024 Discontinued (Therapy completed) estrogens, conjugated (prison) 0.625 mg/ml vaginal cream (20 sources) Estrogen [...] 03-26-2019 SPRINTEC 0.25- 35 mg-mcg per tablet furosemide 20 mg oral tablet (20 sources) Loop Diuretic Start: 02-06-2024 End: 05-09-2024 take 1 tablet by mouth once daily furosemide (Lasix) 20 MG tablet Indications: Localized edema Take 1 tablet (20 mg) by mouth Daily 30 tablet 02/06/2024 05/09/2024 Discontinued (Other) lidocaine hydrochloride 20 mg/ml mucous membrane topical [...] 12/19/2023 Discontinued (Other) take 1 capsule by [facility] every twenty-four hours Vyvanse 50 MG 1 capsule in the morning Orally Once a day Active Comment on above: Take 10 mg by mouth once daily. meloxicam 15 mg oral tablet (20 sources) Nonsteroidal Anti-inflammatory Drug Start: End: take 1 tablet by mouth once daily meloxicam (Mobic) 15 MG tablet Indications: Acute right ankle pain Take 1 tablet (15 mg) by mouth Daily 30 tablet 2 02/21/2024 05/09/2024 Discontinued (Other) 50/50 release 24 hr methylphenidate hydrochloride 20 mg extended release oral capsule (16 sources) Central Nervous System Stimulant Start: End: take 1 capsule by mouth once daily in the morning methylphenidate LA (RITALIN LA) 20 mg 24 hr capsule TAKE 1 CAPSULE BY MOUTH EVERY DAY IN THE MORNING FOR 30 DAYS 03/28/2022 11/02/2022 Discontinued Comment on above: TAKE 1 CAPSULE BY [facility] EVERY DAY IN THE MORNING FOR 30 DAYS Naproxen (1 source) Nonsteroidal Anti-inflammatory Drug Naproxen Not-Taking ondansetron 4 mg disintegrating oral tablet (20 sources) Serotonin-3 Receptor Antagonist Start: End: take 1 tablet by mouth every six hours as needed for nausea and vomiting and nausea and nausea ondansetron ODT (Zofran-ODT) 4 MG disintegrating tablet Indications: Nausea Take 1 tablet (4 mg) by mouth every 6 (six) hours if needed for nausea or vomiting 30 tablet 2 04/01/2024 05/01/2024 Start: 09-07-2023 End: 01-22-2024 take 1 tablet by mouth every eight hours for nausea ondansetron (Zofran) 4 MG tablet Indications: Nausea and vomiting, unspecified vomiting type , Viral gastroenteritis Take 1 tablet (4 mg) by mouth every 8 (eight) hours if needed for nausea or vomiting 15 tablet 09/07/2023 01/22/2024 Discontinued Start: 08-31-2022 End: 08-31-2022 4 mg, INTRAVENOUS, ONCE, 1 d ose, On Mon08/31/22 at 1600, Give IV push over 2 minutes Start: 06-30-2022 End: 06-30-2022 4 mg, INTRAVENOUS, ONCE, 1 d ose, On Mon06/30/22 at 1300, Give IV push over 2 minutes Start: 06-30-2022 End: 06-30-2022 4 mg, INTRAVENOUS, ONCE, 1 d ose, On Kristyn 06/30/22 at 1230, Give IV push over 2 [...] on above: Take 1 tablet by vanna once daily. Take 1 tablet by vanna twice daily before meals for 10 days. Take 1 tablet by vanna twice daily before meals for 14 days. predniSONE 10 mg oral tablet (16 sources) Start: 04-16-2024 End: 05-02-2024 take 4 tablets by mouth once daily, then take 3 tablets by mouth once daily, then take 2 tablets by mouth once daily, then take 1 tablet by mouth once daily predniSONE (Deltasone) 10 MG tablet Indications: Moderate persistent asthmatic bronchitis with acute exacerbation (CMS/HCC) Take 4 tablets (40 mg) by mouth Daily for 4 days, THEN 3 tablets (30 mg) Daily for 4 days, THEN 2 tablets (20 mg) Daily for 4 days, THEN 1 tablet (10 mg) Daily for 4 days. 40 tablet 04/16/2024 05/02/2024 Start: 12-26-2023 End: 01-22-2024 take 4 tablets by mouth once daily, then take 3 tablets by mouth once daily, then take 2 tablets by mouth once daily, then take 1 tablet by mouth once daily predniSONE (Deltasone) 10 MG tablet Indications: Cervical radiculopathy , Acute nonintractable headache, unspecified headache type Take 4 tablets (40 mg) by mouth Daily for 4 days, THEN 3 tablets (30 mg) Daily for 4 days, THEN 2 tablets (20 mg) Daily for 4 days, THEN 1 tablet (10 mg) Daily for 4 days. 40 tablet 12/26/2023 01/22/2024 Discontinued promethazine hydrochloride 12.5 mg oral tablet (17 sources) Phenothiazine Start: 04-11-2024 End: 07-10-2024 take 1 tablet by mouth every six hours as needed for nausea and vomiting and nausea and nausea promethazine (Phenergan) 12.5 MG tablet Indications: Nausea Take 1 tablet (12.5 mg) by mouth every 6 (six) hours if needed for nausea or vomiting Take 1 tablet by mouth every 6 hours as needed for nausea. 30 tablet 2 04/11/2024 05/09/2024 Discontinued (Other) Start: 12-26-2023 End: 01-02-2024 take 1 tablet by mouth every six hours for nausea promethazine (Phenergan) 25 MG tablet Indications: Acute nonintractable headache, unspecified headache type , Nausea and vomiting, unspecified vomiting type Take 1 tablet (25 mg) by mouth every 6 (six) hours if needed for nausea or vomiting for up to 7 days 30 tablet 12/26/2023 01/02/2024 Active prucalopride 2 mg oral tablet (12 sources) Start: 10-17-2022 End: 12-19-2023 take 1 tablet by mouth once daily prucalopride 2 mg tablet (MOTEGRITY) Indications: Chronic idiopathic constipation Take 1 tablet (2 mg) by mouth once daily. 30 tablet 6 10/17/2022 12/19/2023 Discontinued (Other) Comment on above: Take 1 tablet (2 mg) by mouth once daily. Semaglutide-Weight Management (Wegovy) 0.25 MG/0.5ML solution auto-injector (3 sources) Start: 10-05-2023 End: 12-26-2023 inject 0.25 mg by subcutaneous injection every week Semaglutide-Weight Management (Wegovy) 0.25 MG/0.5ML solution auto-injector Indications: Overweight , Obesity (BMI 30.0-34.9) Inject 0.25 mg under the skin 1 (one) time per week 2 mL 10/05/2023 12/26/2023 Discontinued (Other) Start: 10-05-2023 inject 0.25 mg by sorensen bcutaneous injection every week Semaglutide-Weight Management (Wegovy) 0.25 MG/0.5ML solution auto-injector Indications: Overweight , Obesity (BMI 30.0-34.9) Inject 0.25 mg under the skin 1 (one) time per week 2 mL 10/05/2023 Active sucralfate 1000 mg oral tablet (2 sources) Aluminum Complex Start: 06-30-2022 End: 07-30-2022 take 1 tablet by mouth twice daily [...] Date Documented Da te Episodic/Chronic Abdominal pain (8 sources) Right sided abdominal pain; Translations: [Unspecified abdominal pain] Onset: 2 Episodic Acute bronchitis (2 sources) Acute bronchitis; Translations: [Acute bronchitis, unspecified] 04-18-2024 Episodic Anxiety disorders (20 sources) Anxiety disorder, [...] angina pectoris; Translations: [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] Onset: 2 12-12-2022 Chronic Disorders of lipid metabolism (20 sources) Hypercholesterolemia; Translations: [Pure hypercholesterolemia, unspecified] Onset: 2 12-12-2022 Chronic Diverticulosis and diverticulitis (20 sources) Diverticulosis of colon; Translations: [Diverticulosis of large intestine without perforation or abscess without bleeding] Onset: 3 Resolved: 3 09-23-2022 Chronic Endometriosis (1 source) Endometriosis (clinical); Translations: [Other endometriosis] 05-01-2024 Chronic Epilepsy; convulsions (20 sources) Idiopathic generalized epilepsy; Translations: [Generalized idiopathic epilepsy and epileptic syndromes, not intractable, without status epilepticus] Onset: 0 12-12-2022 Chronic Esophageal disorders (20 sources) Gastroesophageal reflux disease without esophagitis; Translations: [Gastro-esophageal reflux disease without esophagitis] Onset: 0 12-12-2022 Chronic Fluid and electrolyte disorders (2 sources) Hypokalemia; Translations: [Hypokalemia] 04-03-2024 Episodic Gastroduodenal ulcer (except hemorrhage) (2 sources) Peptic ulcer; Translations: [Peptic ulcer, site unspecified, unspecified as acute or chronic, without hemorrhage or perforation] 08-31-2022 Chronic Gastrointestinal hemorrhage (2 sources) Gastrointestinal hemorrhage; Translations: [Hemorrhage of anus and rectum] Onset: 5 04-26-2024 Episodic Hepatitis (20 sources) Nonalcoholic steatohepatitis; Translations: [Nonalcoholic [...] Onset: 2 09-23-2022 Chronic Nausea and vomiting (9 sources) Bilious vomiting; Translations: [Bilious vomiting] Episodic Nutritional deficiencies (20 sources) Vitamin D deficiency; Translations: [Vitamin D deficiency, unspecified] Onset: 0 12-12-2022 Chronic Occlusion or stenosis of precerebral arteries (20 sources) Bilateral atherosclerosis of carotid arteries; Translations: [Occlusion and stenosis of bilateral carotid arteries] Onset: 1 12-12-2022 Chronic Osteoarthritis (20 sources) Osteoarthritis of knee; Translations: [Osteoarthritis of knee, unspecified] Onset: 0 12-12-2022 Chronic Other bone disease and musculoskeletal deformities (4 sources) Osteochondritis dissecans of right ankle; Translations: [Osteochondritis dissecans, right ankle and joints of right foot] 05-08-2024 Chronic Other connective tissue disease (2 sources) Pain in right foot; Translations: [Pain in right foot] 05-15-2024 Episodic Other female genital disorders (4 sources) Unspecified dyspareunia; Translations: [UNSPECIFIED DYSPAREUNIA] Onset: 2 Chronic Other female genital disorders (4 sources) Pain in female genitalia on intercourse; Translations: [Unspecified dyspareunia] 03-20-2024 Chronic Other female genital disorders (1 source) H/O: dyspareunia; Translations: [Personal history of other diseases of the female genital tract] 04-30-2024 Episodic Other gastrointestinal disorders (20 sources) Irritable bowel [...] liver Chronic Other liver diseases (1 source) Fatty (change of) liver, not elsewhere classified; Translations: [Fatty (change of) liver, not elsewhere classified] Onset: 3 Chronic Other liver diseases (6 sources) Abnormal levels of other serum enzymes; Translations: [ABNORMAL LEVELS OTHER SERUM ENZYMES] Onset: 3 Episodic Other lower respiratory disease (2 sources) Dyspnea; Translations: [Shortness of breath] Episodic Other lower respiratory disease (19 sources) Snoring; Translations: [Snoring] Onset: 4 04-16-2024 Episodic Other nervous system disorders (20 sources) Poor concentration; Translations: [Attention and concentration deficit] Onset: 3 09-23-2022 Chronic Other non-traumatic joint disorders (1 source) Acute ankle pain; Translations: [Pain in right ankle and joints of right foot] 03-27-2024 Episodic Other non-traumatic joint disorders (2 sources) Pain in left shoulder; Translations: [Pain in joint, shoulder region] 04-03-2024 Episodic Other non-traumatic joint disorders (20 sources) Shoulder pain; Translations: [Pain in left shoulder] Onset: 4 04-03-2024 Episodic Other non-traumatic joint disorders (3 sources) Instability of joint of right ankle; Translations: [Other instability, right ankle] 05-09-2024 Episodic Other nutritional; endocrine; and metabolic disorders (20 sources) Disorder of carbohydrate metabolism; Translations: [Other disorders of intestinal carbohydrate absorption] Onset: 4 10-03-2023 Chronic Other nutritional; endocrine; and metabolic disorders (20 sources) Body mass index 30+ - obesity; Translations: [Obesity, unspecified] Onset: 4 02-06-2024 Chronic Peripheral and visceral atherosclerosis (20 sources) Atherosclerosis of aorta; Translations: [Atherosclerosis of aorta] Onset: 1 12-12-2022 Chronic Spondylosis; intervertebral disc disorders; other back problems (20 sources) Inflammation of sacroiliac joint; Translations: [Sacroiliitis, not elsewhere classified] Onset: 3 09-23-2022 Chronic Sprains and strains (20 sources) Sprain of talofibular ligament of right ankle; Translations: [Sprain of other ligament of right ankle, initial encounter] Onset: 4 04-01-2024 Episodic Syncope (4 sources) Syncope and collapse; Translations: [Syncope and collapse] Onset: 4 12-19-2023 Episodic Thyroid disorders (20 sources) Goiter; [...] duodenum (1 source) Gastroparesis; Translations: [Gastroparesis] Onset: 11-02-2022 Episodic Other gastrointestinal disorders (20 sources) Dysphagia; Translations: [Dysphagia, unspecified] Onset: 09-23-2022 09-23-2022 Episodic Other gastrointestinal disorders (20 sources) History of pancreatitis; Translations: [Personal history of other diseases of the digestive system] Onset: 04-18-2023 04-18-2023 Episodic Other infections; including parasitic (20 sources) Personal history of other infectious and parasitic diseases; Translations: [History of COVID-19] Onset: 02-06-2023 02-06-2023 Episodic Other injuries and conditions due to external causes (20 sources) Injury of right ankle; Translations: [Unspecified injury of right ankle, subsequent encounter] Onset: 02-06-2024 02-06-2024 Episodic Other liver diseases (20 sources) Elevated liver enzymes level; Translations: [Abnormal levels of other serum enzymes] Onset: 09-23-2022 09-23-2022 Episodic Other lower respiratory disease (20 sources) Cough; Translations: [Cough] Onset: 04-18-2023 04-18-2023 Episodic Other nervous system disorders (20 sources) Involuntary movement; Translations: [Unspecified abnormal involuntary movements] Onset: 09-23-2022 09-23-2022 Episodic Other nervous system disorders (20 sources) Pain of skin; Translations: [Other disturbances of skin sensation] Onset: 09-23-2022 09-23-2022 Episodic Other nervous system disorders (20 sources) Tremor; Translations: [Tremor, unspecified] Onset: 09-23-2022 04-01-2024 Episodic Other nutritional; endocrine; and metabolic disorders (20 sources) Obese class I; Translations: [Obesity (BMI 30.0-34.9)] Onset: 09-23-2022 Resolved: 02-06-2023 02-06-2023 Chronic Other nutritional; endocrine; and metabolic disorders (20 sources) Overweight; Translations: [Overweight] Onset: 02-06-2023 02-06-2023 Episodic Other nutritional; endocrine; and metabolic disorders (20 sources) Weight increased; Translations: [Abnormal weight gain] Onset: 10-03-2023 10-03-2023 Episodic Other nutritional; endocrine; and metabolic disorders (4 sources) Weight gain; Translations: [Abnormal weight gain] Onset: 10-03-2023 10-03-2023 [...] Translations: [Insomnia, unspecified] Onset: 09-23-2022 09-23-2022 Episodic Residual codes; unclassified (20 sources) Localized edema; Translations: [Localized edema] Onset: 02-06-2024 02-06-2024 Episodic Spondylosis; intervertebral disc disorders; other back problems (20 sources) Cervical radiculopathy; Translations: [Radiculopathy, cervical region] Onset: 09-23-2022 Resolved: 02-06-2023 12-26-2023 Episodic Substance-related disorders (20 sources) Smoker; Translations: [Nicotine dependence] Onset: 09-23-2022 Resolved: 02-06-2023 10-12-2018 Chronic Comment on above: Added secondary to d ocumentation in Social History. Unclassified (1 source) LOW BACK PAIN, UNSPECIFIED; Translations: [LOW BACK PAIN, UNSPECIFIED] Onset: 09-06-2021 Unclassified (2 sources) Injury of right ankle 02-06-2024 Unclassified (2 sources) Acute pain of left shoulder 04-03-2024 Urinary tract infections (20 sources) Recurrent urinary tract infection; Translations: [Urinary tract infectious disease] Onset: 06-29-2022 Resolved: 02-06-2023 06-29-2022 Episodic Viral infection (20 sources) COVID-19; Translations: [Other specified viral infection] Onset: 11-30-2022 Resolved: 02-06-2023 02-06-2023 Episodic Results Test Name Value Interpretation Reference Range Facility COLONOSCOPYon 05-22-2024 [facility] Gastroenterology Gastrointestinal Endoscopy Patient Name: Orion Harper Procedure Date: 05/22/2024 1:40 PM Date of : 1990 Admit Type: Outpatient Age: 33 Room: ENDO [place] PROC RM 2 Gender: Female Note Status: Finalized Attending MD: Grayson Peter MD, [id number] Procedure: Colonoscopy Indications: Rectal bleeding, Change in bowel habits, Diarrhea for 2-3 weeks. Had bronchitis prior to that and was given steroids and antibiotics Providers: Grayson Peter MD Patient Profile: This is a 33 year old female. Refer to note in patient chart for documentation of history and physical. Last Colonoscopy: May 2019. Referring Physician: Iliana Mercado (Referring MD) Medicines: Monitored Anesthesia Care Complications: [...] verified by the physician, the nurse, the film laboratory technician and the transmission technician in the procedure room. Mental Status Examination: alert and oriented. Airway [...] patient was re-assessed after the procedure. After I obtained informed consent, the scope was passed under direct vision. Throughout the procedure, the patient's blood pressure, pulse, and oxygen saturations were monitored continuously. The Colonoscope was introduced through the anus and advanced to the cecum, identified by appendiceal orifice and ileocecal valve. I was present and participated during the entire procedure, including non-mccarty portions, and during the administration and monitoring of Moderate Sedation. The colonoscopy was performed without difficulty. The patient tolerated the procedure well. The quality of the bowel preparation was good. The quality of the bowel preparation was evaluated using the BBPS ([place] Bowel Preparation Scale) with scores of: Right Colon = 2 (minor amount of residual staining, small fragments of stool and/or opaque liquid, but mucosa seen well), Transverse Colon = 2 (minor amount of residual staining, small fragments of stool and/or opaque liquid, but mucosa seen well) and Left Colon = 2 (minor amount of residual staining, small fragments of stool and/or opaque liquid, but mucosa seen well). The total BBPS score equals 6. The terminal ileum, ileocecal valve, appendiceal orifice, and rectum were ph (more content not included)... [facility], Radiologist, MD - 05/22/2024 [facility] Gastroenterology Gastrointestinal Endoscopy Patient Name: Orion Harper Procedure Date: 05/22/2024 1:40 PM Date of : 1990 Admit Type: Outpatient Age: 33 Room: [place] [address] Gender: Female Note Status: Finalized Attending MD: Grayson Peter MD, [id number] Procedure: Colonoscopy Indications: Rectal bleeding, Change in bowel habits, Diarrhea for 2-3 weeks. Had bronchitis prior to that and was given steroids and antibiotics Providers: Grayson Peter MD Patient Profile: This is a 33 year old female. Refer to note in patient chart for documentation of history and physical. Last Colonoscopy: May 2019. Referring Physician: Iliana Mercado (Referring MD) Medicines: Monitored Anesthesia Care Complications: [...] verified by the physician, the nurse, the film laboratory technician and the transmission technician in the procedure room. Mental Status Examination: alert and oriented. Airway [...] patient was re-assessed after the procedure. After I obtained informed consent, the scope was passed under direct vision. Throughout the procedure, the patient's blood pressure, pulse, and oxygen saturations were monitored continuously. The Colonoscope was introduced through the anus and advanced to the cecum, identified by appendiceal orifice and ileocecal valve. I was present and participated during the entire procedure, including non-mccarty portions, and during the administration and monitoring of Moderate Sedation. The colonoscopy was performed without difficulty. The patient tolerated the procedure well. The quality of the bowel preparation was good. The quality of the bowel preparation was evaluated using the BBPS ([place] Bowel Preparation Scale) with scores of: Right Colon = 2 (minor amount of residual staining, small fragments of stool and/or opaque liquid, but mucosa seen well), Transverse Colon = 2 (minor amount of residual staining, small fragments of stool and/or opaque liquid, but mucosa seen well) and Left Colon = 2 (minor amount of residual staining, small fragments of stool and/or opaque liquid, but mucosa seen well). The total BBPS score equals 6. The terminal ileum, ileocecal valve, appendiceal orifice, and rectum were photographed. Scope Withdrawal Time: 0 hours 8 minutes 14 seconds Moderate Sedation: MAC anesthesia was administered by the anesthesia team. Findings: The perianal and digital rectal examinations were normal. The terminal ileum appeared normal. A few small-mouthed diverticula were found in the sigmoid colon and ascending colon. Several biopsies were obtained with cold forceps for histology in the right colon, as well as several biopsies in the left colon. Internal hemorrhoids were found during retroflexion. The hemorrhoids were small. A small amount of liquid stool was found in the entire colon. Fluid aspiration for bacterial cultures and Clostridium difficile was performed. Impression: - The examined portion of the ileum was normal. - Diverticulosis in the sigmoid colon and in the ascending colon. - Internal hemorrhoids. This is the source of rectal bleeding - Stool in the entire examined colon. Stool sample was collected for microbiology - Biopsies performed in the right colon and in the left colon. Recommendation: - Await pathology results. - Await stool studies - Continue present medications. - Use Benefiber two teaspoons PO daily. - Align one capsule by mouth once a da (more content not included)... [facility] Radiology Study observation (narrative) [facility] COLONOSCOPYOrdered By: Radio logist Radiology on 05-22-2024 [facility] Work Phone: XR Ankle - right 3 Viewson 0 05-15-2024 Imaging Result: XRAY: Three views were taken today AP/MORT/LAT Ankle: No fractures or dislocations seen no spurring noted at the lateral ankle ligament complex noted as reported on the MRI [facility] Radiology Study observation (narrative) [facility] ALL CBC WITH AUTO DIFFon BASOPHILS ABSOLUTE AUTO 0 [facility] Basophils/100 WBC (Bld) 0.4 % 0.2 - 2.0 % [facility] Eosinophils/100 WBC (Bld) 2.2 % 0.9 - 7.0 % [facility] Erythrocyte distribution width (RBC) [Ratio] 12.9 % 11.0 - 15.0 % [facility] Hematocrit (Bld) [Volume fraction] 41.2 % 36.0 - 48.0 % [facility] Hemoglobin (Bld) [Mass/Vol] 13.8 g/dL 12.0 - 16.0 g/dL [facility] IMMATURE GRANULOCYTES ABS AUTO 0.19 High [facility] Immature granulocytes/100 WBC (Bld) 1.9 % High 0.0 - 0.5 % [facility] Interpretation and review of laboratory results Abnormal [facility] LYMPHOCYTES ABSOLUTE AUTO 3 [facility] Lymphocytes/100 WBC (Bld) 30.1 % 20.5 - 60.0 % [facility] MCH (RBC) [Entitic mass] 32.7 pg 26.7 - 34.0 pg [facility] MCHC (RBC) [Mass/Vol] 33.5 g/dL 29.9 - 35.2 g/dL [facility] MCV (RBC) [Entitic vol] 97.6 fL 81.0 - 99.0 fL [facility] MONOCYTES ABSOLUTE AUTO 0.7 [facility] Monocytes/100 WBC (Bld) 6.6 % 1.7 - 12.0 % [facility] NEUTROPHILS ABSOLUTE AUTO 5.8 [facility] Neutrophils/100 WBC (Bld) 58.8 % 43.0 - 75.0 % [facility] Platelet mean volume (Bld) [Entitic vol] 10.8 fL 9.5 - 13.5 fL [facility] TBH EO # 0.2 [facility] PLT 206 [facility] RBC 4.22 [facility] WBC 9.9 [facility] CLINISYNC [facility] CNPNon 05-06-2024 CNPN Telephone (CARDMN) ORION HARPER ([id number]) 1990 F Date Time Provider Department 05/06/24 SOLO MORA During your visit today, we recorded the following information about you: Criss Mccrary 05/06/2024 1:41 PM Signed Echo was faxed to Anne-Marie @ [phone] AND scanned into outside ep. Patient is having a procedure. Criss Mccrary Allergies As of Date: 05/06/2024 Noted Allergy Reaction IV CONTRAST (IODINE) 04/11/2019 7 - Swelling 9 - Itching Comments: Omnipaque 300: Patient experienced itching on her neck and left side of her face. Also, pt complained of tongue feeling itchy and feels like something is stuck in her throat . Patient received diphenhydramine (Benadryl) OMNIPAQUE (IOHEXOL) 04/12/2019 9 - Itching Date Reviewed: 04/26/2024 Reviewed by: Светлана Agosto MA - Fully Assessed Reason for Visit: Patient Update [1234] Cmt: 04/09/24 Echo Faxed Prescriptions as of 05/06/2024 - Phentermine HCl 37.5 mg tablet Take 37.5 mg by mouth. - escitalopram oxalate (LEXAPRO) 20 mg tablet Take 20 mg by mouth every morning. - amphetamine-dextroamp hetamine XR (ADDERALL XR) 30 mg capsule Take 30 mg by mouth once daily. - ALPRAZolam (XANAX) 0.5 mg tablet Take 0.25 mg by mouth two times a day. - cariprazine (VRAYLAR) 4.5 mg capsule Take 4.5 mg by mouth once daily. Problem List As Of Date 05/06/2024 Noted Resolved Gastroparesis [K31.84] 11/02/2022 Encounter Status:Closed by CRISS MCCRARY on 05/06/24 Normal [facility] Liver ultrasound attenuation by transient elastographyon 05-02-2024 Fibroscan Report Date performed: May 02, 2024 Performed by: Mayela Merino LPN Interpreted by: Zehra Gray PA-C Patient fasted 3 hours:Yes Indication: Elevated LFTs Technical difficulties: None. Result: The reading was adequate. Please refer to get images report for individual readings Number of readings: 10 IQR %: 7 E (kpa): 7.4 CAP: 289 Impression The liver stiffness is 7.4 kPa which corresponds to 91% chance of stage 0-2 fibrosis. The CAP analysis showed grade S2 of liver steatosis. Stage of liver fibrosis based on above kPa: A 91% chance of stage 0-2 fibrosis A 9% chance of stage 3-4 fibrosis (advanced fibrosis) A 1.3% chance of stage 4 fibrosis (cirrhosis). A kPa >20 indicates a high likelihood of stage 4 fibrosis/cirrhosis, consider further testing to confirm and referral to hepatology. Zehra Gray PA-C [facility] Fibroscan Fibrosis Risk <7 kPA = F0-F2 97%, F3+F4 3%, F4 <1% <10 kPA = F0-F2 91%, F3+F4 9%, F4 1.3% 10-15 kPA = F0-F2 56%, F3+F4 43%, F4 14% >15 kPA = F0-F2 26%, F3+F4 74%, F4 46% Grade CAP value up to 237 dB/M corresponds to S0 (< 10 % Fat) CAP value between (238 - 258 dB/M) corresponds to S1 (>/= 11 % Fat) CAP value between (259 - 289 dB/M) corresponds to S2 (>/= 33 % Fat) CAP value > 290dB/M corresponds to S3 (>/= 67 % Fat) stage 0 ( S0:< 10 % steatosis) stage 1 (>/= S1: 11%-33% steatosis) stage 2 (>/= S2: 34%-66% steatosis) stage 3 (>/= S3: > 66% steatosis) Reference Renard Y, Inocente Q, Renard T, Gifty J, Renard H, Balaji T. Controlled attenuation parameter for assessment of hepatic steatosis grades: a diagnostic meta-analysis. Int J Clin Exp Med. 2015 Jan 15;8(10):75190-60. PMID: 64924265; PMCID: [id number]. Ruthann M, Juan FANTASMA, Rico M, Cosmo F, Tawnya J, Everardo O, Leyla F, Franci M, Alejandro G, Dorie A, Gianna E, Leyla L, French G, Kashmir A, Vicente U, Jodi S, Franc P, Max V, Last V, Leena M, Neo MARIE. Refining the Baveno elastography criteria for the definition of compensated advanced chronic liver disease. J Hepatol. 2020;74(5):2158-5585. doi: 10.1016/j.jhep.2020.1 1.050. Epub 2019Apr 01. PMID: 33223797. Izabel Bob, Chastity B, Martha Bob, Xiao Bob, Joon S, Nuria Roth, Trevin Roth, Trixie Kendrick. AASLD practice guidance on the clinical assessment and management of nonalcoholic fatty liver disease. Hepatology. 2022;77(5):6264-9443. doi:10.1097/HEP.15704 [id number] [facility] Radiology Study observation (narrative) [facility] Radiology Study observation (narrative) [facility] A1AT SerPl-mCncon 04-26-2024 Alpha 1 antitrypsin [Mass/Vol] 123 mg/dL Normal 90-200 [facility] Comment on above: Order Comment: Speci men Type: BLOOD SPECIMEN Ordering Facility: [facility] Address: [address] [place] [address] Performed By: #### 2 064-4, 1825-9 #### [facility] CLIA [id number] [address] [place] [address] [place] AFP SerPl-mCncon 04-26-2024 AFP [Mass/Vol] 3.01 ng/mL Normal <9.00 Lisa parry Comment on above: Order Comment: Rl basilio Type: BLOOD SPECIMEN Ordering Facility: [facility] Address: [address] [place] [address] Result Comment: The Alpha-Fetoprotein test was performed using the [employer]um[employer] DxI immunoenzymatic assay. Results obtained with different assay methods or kits cannot be used interchangeably. Performed By: #### 1 834-1 #### [facility] CLIA [id number] [address] [place] [address] [place] DENY BY IFA WITH REFLEXon Nuclear Ab Ql (S) Negative Normal Negative Lisa zepeda Comment on above: Order Comment: Rl basilio Type: BLOOD SPECIMEN Ordering Facility: [facility] Address: [address] [place] [address] Result Comment: Anti -nuclear antibody test is used as an aid in diagnosis of systemic autoimmune diseases. Where positive and clinically warranted, follow-up using disease-specific testing is recommended. Low positive titers are not uncommon with advanced age, certain chronic infections, and malignancies among others. Test methodology: Indirect fluorescence immunoassay (IFA) using HEp-2 cells. Performed By: #### A NAIFR #### [facility] CLIA [id number] [address] [place] [address] [place] CBC W Auto Differential pane l (Bld)on 04-26-2024 Basophils (Bld) [#/Vol] 0.06 10*3/uL [facility] Differential cell count method Nom (Bld) Auto [facility] Eosinophils (Bld) [#/Vol] [facility] Immature granulocytes (Bld) [#/Vol] 0.33 10*3/uL High [facility] Immature granulocytes/100 WBC (Bld) 2.7 % [facility] Lymphocytes (Bld) [#/Vol] 2.80 10*3/uL [facility] MCH (RBC) [Entitic mass] 32.0 pg 26.0 - 34.0 pg [facility] Monocytes (Bld) [#/Vol] 0.41 10*3/uL [facility]F [facility] Neutrophils (Bld) [#/Vol] 8.78 10*3/uL High [facility] Nucleated RBC (Bld) [#/Vol] [facility] Nucleated RBC/100 WBC (Bld) [Ratio] 0.0 % /100 WBC [facility] Platelet mean volume (Bld) [Entitic vol] 10.8 fL 9.0 - 12.7 fL [facility] Platelets (Bld) [#/Vol] 271 10*3/uL [facility] WBC (Bld) [#/Vol] 12.39 10*3/uL High [facility] Basophils (Bld) [#/Vol] 0.06 10*3/uL Normal <0.11 [facility] Comment on above: Order Comment: Speci men Type: BLOOD SPECIMEN Ordering Facility: [facility] Address: [address] [place] [address] Performed By: #### 5 0190-8, 2275-, #### [facility] CLIA [id number] [address] [place], [place] [id number] [place] [address] [place] Basophils/100 WBC (Bld) 0.5 % Normal [facility] Comment on above: Order Comment: Speci men Type: BLOOD SPECIMEN Ordering Facility: [facility] Address: [address] [place] [address] Performed By: #### 5 0190-8, 2275-4, 86938-4 #### [facility] CLIA [id number] [address] [place] [address] [place] Differential cell count method Nom (Bld) Auto Normal [facility] ital Comment on above: Order Comment: Speci men Type: BLOOD SPECIMEN Ordering Facility: [facility] Address: [address] [place] [address] Performed By: #### 5 0190-8, 2275-07, #### [facility] CLIA [id number] [address] [place] [address] [place] Eosinophils (Bld) [#/Vol] 10*3/uL Normal <0.46 [facility] Comment on above: Order Comment: Speci men Type: BLOOD SPECIMEN Ordering Facility: [facility] Address: [address] [place] [address] Performed By: #### 5 0190-8, 2275-07, #### [facility] CLIA [id number] [address] [place], [place] [id number] [place] [address] [place] Eosinophils/100 WBC (Bld) 0.1 % Normal [facility] Comment on above: Order Comment: Speci men Type: BLOOD SPECIMEN Ordering Facility: [facility] Address: [address] [place] [address] Performed By: #### 5 0190-8, 2275-07, #### [facility] CLIA [id number] [address] [place], [place] [id number] [place] [address] [place] Erythrocyte distribution width (RBC) [Ratio] 12.5 % Normal 11.5-15.0 [facility] Comment on above: Order Comment: Speci men Type: BLOOD SPECIMEN Ordering Facility: [facility] Address: [address] [place] [address] Performed By: #### 5 0190-8, 2275-07, #### [facility] CLIA [id number] [address] [place] [address] [facility] [place] Hematocrit (Bld) [Volume fraction] 46.1 % High 36.0-46.0 [facility] Comment on above: Order Comment: Speci men Type: BLOOD SPECIMEN [facility] [facility] Address: [address] [place] [address] Performed By: #### 5 0190-8, 2275-07, #### [facility] CLIA [id number] [address] [facility] [address] [place] Hemoglobin (Bld) [Mass/Vol] 15.5 g/dL Normal 11.5-15.5 [facility] Comment on above: Order Comment: Speci men Type: BLOOD SPECIMEN Ordering Facility: [facility] Address: [address] [place] [address] Performed By: #### 5 0190-8, 2275-4, 00846-1 #### [facility] CLIA [id number] [address] [place] [address] [place] Immature granulocytes (Bld) [#/Vol] 0.33 10*3/uL High <0.10 [facility] Comment on above: Order Comment: Speci men Type: BLOOD SPECIMEN Ordering Facility: [facility] Address: [address] [place] [address] Performed By: #### 5 0190-8, 2275-07, 32922-8 #### [facility] CLIA [id number] [place] Immature granulocytes/100 WBC (Bld) 2.7 % Normal [facility] Comment on above: Order Comment: Speci men Type: BLOOD SPECIMEN Ordering Facility: [facility] Address: [address] [place] [address] Performed By: #### 5 0190-8, 2275-07, #### [facility] CLIA [id number] [address] [place] [address] [place] Lymphocytes (Bld) [#/Vol] 2.80 10*3/uL Normal 1.00-4.00 [facility] Comment on above: Order Comment: Speci men Type: BLOOD SPECIMEN Ordering Facility: [facility] Address: [address] [place] [address] Performed By: #### 5 0190-8, 2275-07, #### [facility] CLIA [id number] [address] [place] [address] [place] Lymphocytes/100 WBC (Bld) 22.6 % Normal [facility] Comment on above: Order Comment: Speci men Type: BLOOD SPECIMEN Ordering Facility: [facility] Address: [address] [place] [address] Performed By: #### 5 0190-8, 2275-07, 81599-9 #### [facility] CLIA [id number] [address] [place], [place] [id number] [place] [address] [place] MCH (RBC) [Entitic mass] 32.0 pg Normal 26.0-34.0 [facility] Comment on above: Order Comment: Speci men Type: BLOOD SPECIMEN Ordering Facility: [facility] Address: [address] [place] [address] Performed By: #### 5 0190-8, 2275-07, #### [facility] CLIA [id number] [address] [place] [address] [place] MCHC (RBC) [Mass/Vol] 33.6 g/dL Normal 30.5-36.0 [facility] Comment on above: Order Comment: Speci men Type: BLOOD SPECIMEN Ordering Facility: [facility] Address: [address] [place] [address] Performed By: #### 5 0190-8, 2275-07, #### [facility] [place] [id number] [address] [place] [address] [place] MCV (RBC) [Entitic vol] 95.1 fL Normal 80.0-100.0 [facility] Comment on above: Order Comment: Speci men Type: BLOOD SPECIMEN Ordering Facility: [facility] Address: [address] [place] [address] Performed By: #### 5 0190-8, 2275-07, #### [facility] CLIA [id number] [address] [place] [address] [place] Monocytes (Bld) [#/Vol] 0.41 10*3/uL Normal <0.87 [facility] Comment on above: Order Comment: Speci men Type: BLOOD SPECIMEN Ordering Facility: [facility] Address: [address] [place] [address] Performed By: #### 5 0190-8, 4, #### [facility] CLIA [id number] [address] [place] [address] [place] Monocytes/100 WBC (Bld) 3.3 % Normal [facility] Comment on above: Order Comment: Speci men Type: BLOOD SPECIMEN Ordering Facility: [facility] Address: [address] [place] [address] Performed By: #### 5 0190-8, 2275-07, #### [facility] CLIA [id number] [address] [place] [address] [place] Neutrophils (Bld) [#/Vol] 8.78 10*3/uL High 1.45-7.50 [facility] Comment on above: Order Comment: Speci men Type: BLOOD SPECIMEN Ordering Facility: [facility] Address: [address] [place] [address] Performed By: #### 5 0190-8, 2275-07, #### [facility] CLIA [id number] [address] [place] [address] [place] Neutrophils/100 WBC (Bld) 70.8 % Normal [facility] Comment on above: Order Comment: Speci men Type: BLOOD SPECIMEN Ordering Facility: [facility] Address: [address] [place] [address] Performed By: #### 5 0190-8, 2275-07, #### [facility] CLIA [id number] [address] [facility] [address] [place] Nucleated RBC (Bld) [#/Vol] 10*3/uL Normal <0.01 [facility] Comment on above: Order Comment: Speci men Type: BLOOD SPECIMEN Ordering Facility: [facility] Address: [address] [place] [address] Performed By: #### 5 0190-8, 2275-07, #### [facility] CLIA [id number] [facility] [address] [place] Nucleated RBC/100 WBC (Bld) [Ratio] 0.0 /[address] [facility] Comment on above: Order Comment: Speci men Type: BLOOD SPECIMEN Ordering Facility: [facility] Address: [address] [place] [address] Performed By: #### 5 0190-8, 2275-4, #### [facility] CLIA [id number] [address] [place] [address] [place] Platelet mean volume (Bld) [Entitic vol] 10.8 fL Normal 9.0-12.7 [facility] Comment on above: Order Comment: Speci men Type: BLOOD SPECIMEN Ordering Facility: [facility] Address: [address] [place] [address] Performed By: #### 5 0190-8, 2275-07, #### [facility] CLIA [id number] [address] [place] [address] [place] Platelets (Bld) [#/Vol] 271 10*3/uL Normal 150-400 [facility] Comment on above: Order Comment: Speci men Type: BLOOD SPECIMEN Ordering Facility: [facility] Address: [address] [place] [address] Performed By: #### 5 0190-8, 2275-07, #### [facility] CLIA [id number] [address] [place] [address] [place] RBC (Bld) [#/Vol] 4.85 10*6/uL Normal 3.90-5.20 [facility] Comment on above: Order Comment: Speci men Type: BLOOD SPECIMEN Ordering Facility: [facility] Address: [address] [place] [address] Performed By: #### 5 0190-8, 2275-07, 87940-6 #### [facility] CLIA [id number] [address] [place] [address] [place] WBC (Bld) [#/Vol] 12.39 10*3/uL High 3.70-11.00 [facility] Comment on above: Order Comment: Speci men Type: BLOOD SPECIMEN Ordering Facility: [facility] Address: [address] [place] [address] Performed By: #### 5 0190-8, 2276-4, 03292-4 #### [facility] CLIA [id number] [address] [facility] [place], [place] [address] [place] [address] [place] [facility] CBC W AUTO DIFF BLDon [facility] BASOPHILS # BLD AUTO 0.06 [facility] DIFFERENTIAL METHOD BLD Auto [facility] EOSINOPHIL # BLD AUTO <0.03 [facility] LYMPHOCYTES # BLD AUTO 2.8 [facility] MONOCYTES # BLD AUTO 0.41 [facility] NEUTROPHILS # BLD AUTO 8.78 High [facility] NRBC # BLD AUTO <0.01 [facility] NRBC/100 WBC BLD-RTO 0 /100 WBC [facility] PLATELET # BLD AUTO 271 [facility] PMV BLD AUTO 10.8 fL 9.0 - 12.7 fL [facility] WBC # BLD AUTO 12.39 High [facility] IMM GRANULOCYTES # BLD AUTO 0.33 High [facility] IMM GRANULOCYTES/LEUK NFR BLD AUTO 2.7 % [facility] MCH (RBC) [Entitic mass] 32 pg 26.0 - 34.0 pg [facility] Specimen Type: BLOOD SPECIMEN Ordering Facility: [facility] Address: [address] [place] [address] Original Ordering Provider: ILIANA MERCADO CLINISYLUCIANO Alexandra 04-26-2024 CNOV Office Visit (GASTNO ) ORION HARPER ([id number]) 1990 F Date Time Provider Department 1/3/25 3:05 PM ILIANA MERCADO During your visit today, we recorded the following information about you: Pulse Blood pressure Weight 84/minute 133/92 84 kg Iliana Mercado PA-C 04/26/2024 2:26 PM Addendum Thank you for seeing me in clinic today. It was very nice to meet you! As we discussed, my recommendations are as follows: Have labs completed Have fibroscan completed with our office Schedule colonoscopy Begin using 2 teaspoons of soluble fiber (e.g. Metamucil, Benefiber or Citrucel) in 12 oz of water every day. Stir until fiber has dissolved. If fiber is well-tolerated but does not completely regulate bowel movements after 1 week, add another teaspoon of fiber for a total of 3 teaspoons per day. Fiber works best if you are hydrated. Be sure to drink at least 64 oz of water every day. If you have any questions about the above treatment plan, please do not hesitate to send me a [employer] message or call. FARNAZ Mohr Lauren, PA-C 04/26/2024 3:02 PM Signed DEPARTMENT OF GASTROENTEROLOGY - FOLLOW UP REASON FOR VISIT Orion Harper is a 33 year old female who is scheduled for follow up of elevated LFTs HISTORY OF PRESENT ILLNESS Orion Harper is a 33 year old female who presents today for follow up of elevated LFTs. Patient reports she has had elevated liver enzymes for the past several years. She reports she saw Dr. Hylton in 2021 in [facility]. 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 She to lose weight. She was on Wegovy but this caused gastroparesis therefore it was stopped. She is currently on phentermine to work to lose weight. She denies IV drug use, family history of liver disease, abdominal distention, sleep-wake cycle reversal, confusion, and gym. She reports over the past month she has been experiencing BRBPR every couple of days with a bowel movement. She has also noted looser BM, but not diarrhea. This has never happened to her before. She has abdominal pain thought to be related to her bladder and is scheduled for surgery with urology per her report; thought to be related to scar tissue. She denies dysphagia. Does note GERD and was recently started on PPI 2 weeks ago. She has noticed some improvement but not completely resolved. Pertinent Workup to Date: 05/[address] Peter ASSESSMENT/PLAN: 1. Fatty liver - ICD9: 571.8, [...] follow up with Dr. Hylton who is knowledge engineer We discussed seeing endocrinology to help [...] CXR results - XR CHEST 2V FRONTAL/LAT Also seen by Dr. Corey for GP 09/2022 labs AST:47, ALT:114, otherwise WNL. 08/2022 EGD - Normal hypopharynx. - Normal esophagus. - Z-line regular, 37 cm from the incisors. - Possible Gastroparesis. Retained food in the stomach - Normal examined duodenum. Biopsied. - Biopsies performed in the gastric antrum and in the gastric body. - Previously seen gastric ulcers had healed Recommendation: - Await pathology results. - Use Protonix (pantoprazole) 40 mg PO daily for 3 months then 20mg daily - Gastroparesis diet. - Do a gastric emptying study at appointment to be scheduled. - Miralax 1 capful (17 grams) in 8 ounces of water PO daily. - Align one capsule by mouth once a day - Return to my office in 4-6 months. - Discharge patient to home (ambulatory). Colonosc (more content not included)... Normal [facility] Office Visit (ORMDNA ) ORION HARPER ([id number]) 1990 F Date Time Provider Department 04/26/24 12:00 PM LYDIA KELLEY During your visit today, we recorded the following information about you: Lydia Kelley DO 05/09/2024 1:33 PM Signed Reason for Visit/Chief Complaint Orion Harper is a 33 year old female who presents today for a new evaluation of following complaint: Patient presents with: Right Ankle - New, Pain, Swelling History of Present Illness: PAIN EVALUATION 04/24/2024 1950 Pain Location: Ankle-Right Description: Aching;Sharp;Shooting ;Sore;Throbbing Duration Amount of Time: 1 Duration Units: Days Frequency: Intermittent Intervention/Comfort measure: Medication;Relaxation HPI: Orion Harper is a 33 year old female presenting today with right ankle pain. Patient has been experiencing ankle pain since 01/10/2024 when she sustained a fall down 3 steps. She has been seen by two other physicians and is here for a third opinion. She had images completed. Pain history is noted as above. Denies calf pain, numbness, tingling, fever, chills or other constitutional symptoms. Has cardiac issues and states other hospitals will not clear her. Previous Treatments: Ice: Yes Heat: No Brace: No NSAIDs: Yes, currently taking Vicodin. Injections: No Surgeries: No Physical Therapy: Yes Review of Systems: Patient did not have, and does not currently have, any weight loss, malaise, fever, chills, headache, chest pain, chest pressure, palpitations, cough, shortness of breath, orthopnea, paroxsymal nocturnal dyspnea, nausea, vomiting, diarrhea, constipation, melena, hematochezia, urinary difficulties, prolonged bleeding, easily bruising, heat or cold intolerance, new onset joint pain or swelling, new onset extremity weakness or numbness, new onset auditory or visual disturbances, lightheadedness, dizziness, partial loss of consciousness or full loss of consciousness. Current Outpatient Medications on File Prior to Visit Medication Sig - amphetamine-dextroamp hetamine XR (ADDERALL XR) 30 mg capsule Take 30 mg by mouth once daily. - ALPRAZolam (XANAX) 0.5 mg tablet Take 0.25 mg by mouth two times a day. - cariprazine (VRAYLAR) 4.5 mg capsule Take 4.5 mg by mouth once daily. No current facility-administered medications on file prior to visit. ALLERGIES Allergen Reactions - Iv Contrast [Iodine] Swelling, Itching Omnipaque 300: Patient experienced itching on her neck and left side of her face. Also, pt complained of tongue feeling itchy and feels like something is stuck in her throat . Patient received diphenhydramine (Benadryl) - Omnipaque [Iohexol] Itching Physical Exam: Vitals: There were no vitals taken for this visit. Psych: Pleasant, good affect and mood General Appearance: Well appearing, alert, in no acute distress, well-hydrated, well nourished.. Skin: Skin color, texture, turgor normal, no suspicious rashes or lesions. Peripheral Pulses: Normal. Neurologic: Gait normal. Reflexes normal and symmetric. Sensation grossly intact.. Lymph Nodes: No cervical lymphadenopathy, No supraclavicular lymphadenopathy, No axillary lymphadenopathy., and No inguinal lymphadenopathy.. Respiratory: No recent pulmonary infection, hemoptysis, chronic cough, or shortness of breath at rest Rheumatologic: Joint deformities: right ankle pain Right Ankle Exam Tenderness The patient is experiencing tenderness in the ATF. Range of Motion The patient has normal right ankle ROM. Dorsiflexion: normal Plantar flexion: normal Eversion: normal Inversion: normal Muscle Strength Dorsiflexion: 5/5 Plantar flexion: 5/5 Anterior tibial: 5/5 Posterior tibial: 5/5 Gastrocsoleus: 5/5 Peroneal muscle: 5/5 Tests Anterior drawer: 2+ Varus tilt: negative Other Erythema: absent Sensation: normal Pulse: present Comments: Neg homans sign Left Ankle Exam Left ankle exam is normal. Tenderness The patient is experiencing no tenderness. Range of Motion The patient has normal left ankle ROM. Dorsiflexion: normal Plantar flexion: normal Eversion: normal Inversion: normal Muscle Strength Dorsiflexion: 5/5 Plantar flexion: 5/5 Anterior tibial: 5/5 Posterior tibial: 5/5 Gastrocsoleus: 5/5 Peroneal muscle: 5/5 Tests Anterior drawer: negative Varus tilt: negative Other Erythema: absent Sensation: normal Pulse: present Imaging: awaiting for charts from [facility] with images and MRI report Assessment and Plan: Impression: Encounter Diagnosis ICD-10-CM 1. Sprain of anterior talofibular ligament of right ankle, initial encounter S93.491A Plan: Patient has pain and swelling of right ankle recalcitrant to conservative txt options I need imaging studies to eval for right ankle surgical procedure decision making and plan (more content not included)... Normal [facility] Ceruloplasmin SerPl-mCncon 0 04-26-2024 Ceruloplasmin [Mass/Vol] 27 mg/dL Normal 16-45 [facility] Comment on above: Order Comment: Speci men Type: BLOOD SPECIMEN Ordering Facility: [facility] Address: [address] [place] [address] Performed By: #### 2 064-4, 1825-9 #### [facility] CLIA [id number] [address] [place] [address] [place] Comprehensive metabolic 2000 panelon 04-26-2024 Albumin [Mass/Vol] 4.7 g/dL 3.9 - 4.9 g/dL [facility] ALP [Catalytic activity/Vol] 144 U/L High 34 - 123 U/L [facility] ALT [Catalytic activity/Vol] 192 U/L High 7 - 38 U/L [facility] Anion gap [Moles/Vol] 13 mmol/L 8 - 15 mmol/L [facility] AST [Catalytic activity/Vol] 99 U/L High 13 - 35 U/L [facility] Bilirubin [Mass/Vol] 0.3 mg/dL 0.2 - 1 .3 mg/dL [facility] Calcium [Mass/Vol] 9.2 mg/dL 8.5 - 10. 2 mg/dL [facility] Chloride [Moles/Vol] 100 mmol/L 98 - 10 7 mmol/L [facility] CO2 [Moles/Vol] 25 mmol/L 22 - 30 mmol/L [facility] Creatinine [Mass/Vol] 0.58 mg/dL 0.58 - 0.96 mg/dL [facility] GFR/1.73 sq M.predicted among non-blacks MDRD (S/P/Bld) [Vol rate/Area] 121 mL/min/{1.73_m2} - PINF [facility] Comment on above: Estimated Glomerular Filtration Rate (eGFR) is calculated using the 2020 CKD-EPI creatinine equation. This equation utilizes serum creatinine, sex, and age as parameters. The creatinine assay has traceable calibration to isotope dilution-mass spectrometry. Refer to KDIGO guidelines for clinical interpretation. In patients with unstable renal function, e.g. those with acute kidney injury, the eGFR may not accurately reflect actual GFR. Glucose [Mass/Vol] 95 mg/dL 74 - 99 mg/dL [facility] Comment on above: The [place] [employer] (ADA) provides guidance for cutoff values for fasting glucose and random glucose. The ADA defines fasting as no caloric intake for at least 8 hours. Fasting plasma glucose results between 100 to 125 mg/dL indicate increased risk for diabetes (prediabetes). Fasting plasma glucose results greater than or equal to 126 mg/dL meet the criteria for diagnosis of diabetes. In the absence of unequivocal hyperglycemia, results should be confirmed by repeat testing. In a patient with classic symptoms of hyperglycemia or hyperglycemic crisis, random plasma glucose results greater than or equal to 200 mg/dL meet the criteria for diagnosis of diabetes. Reference: Standards of Medical Care in Diabetes 2016, [place] [employer]. Diabetes Care. 2016.39(Suppl 1). Interpretation and review of laboratory results Abnormal [facility] Potassium [Moles/Vol] 4.0 mmol/L 3.7 - 5.1 mmol/L [facility] Protein [Mass/Vol] 8.0 g/dL 6.3 - 8.0 g/dL [facility] Sodium [Moles/Vol] 138 mmol/L 136 - 144 mmol/L [facility] Urea nitrogen [Mass/Vol] 12 mg/dL 7 - 21 mg/dL [facility] Albumin [Mass/Vol] 4.7 g/dL Normal 3.9-4.9 [facility] Comment on above: Order Comment: Speci men Type: BLOOD SPECIMEN Ordering Facility: [facility] Address: [address] [place] [address] Performed By: #### 5 0190-8, 2275-4, 89455-7 #### [facility] CLIA [id number] [address] [place] [address] [place] ALP [Catalytic activity/Vol] 144 U/L High 34-123 [facility] Comment on above: Order Comment: Speci men Type: BLOOD SPECIMEN Ordering Facility: [facility] Address: [address] [place] [address] Performed By: #### 5 0190-8, 2275-4, 67504-7 #### [facility] CLIA [id number] [address] [place] [address] [place] ALT [Catalytic activity/Vol] 192 U/L High 7-38 [facility] Comment on above: Order Comment: Speci men Type: BLOOD SPECIMEN Ordering Facility: [facility] Address: [address] [place] [address] Performed By: #### 5 0190-8, 4, 36428-9 #### [facility] CLIA [id number] [address] [place] [address] [place] Anion gap [Moles/Vol] 13 mmol/L Normal 8-15 [facility] Comment on above: Order Comment: Speci men Type: BLOOD SPECIMEN Ordering Facility: [facility] Address: [address] [place] [address] Performed By: #### 5 0190-8, 2275-4, 73939-8 #### [facility] CLIA [id number] [address] [place] [address] [place] AST [Catalytic activity/Vol] 99 U/L High 13-35 [facility] Comment on above: Order Comment: Speci men Type: BLOOD SPECIMEN Ordering Facility: [facility] Address: [address] [place] [address] Performed By: #### 5 0190-8, 4, #### [facility] CLIA [id number] [address] [place] [address] [place] Bilirubin [Mass/Vol] 0.3 mg/dL Normal 0.2-1.3 [facility] Comment on above: Order Comment: Speci men Type: BLOOD SPECIMEN Ordering Facility: [facility] Address: [address] [place] [address] Performed By: #### 5 0190-8, 2275-07, #### [facility] CLIA [id number] [address] [place] [address] [place] Calcium [Mass/Vol] 9.2 mg/dL Normal 8.5-10.2 [facility] Comment on above: Order Comment: Speci men Type: BLOOD SPECIMEN Ordering Facility: [facility] Address: [address] [place] [address] Performed By: #### 5 0190-8, 2275-07, #### [facility] CLIA [id number] [address] [place] [address] [place] Chloride [Moles/Vol] 100 mmol/L Normal 98-107 [facility] Comment on above: Order Comment: Speci men Type: BLOOD SPECIMEN Ordering Facility: [facility] Address: [address] [place] [address] Performed By: #### 5 0190-8, 2275-07, #### [facility] CLIA [id number] [address] [place] [address] [place] CO2 [Moles/Vol] 25 mmol/L Normal 22-30 [facility] Comment on above: Order Comment: Speci men Type: BLOOD SPECIMEN Ordering Facility: [facility] Address: [address] [place], [place] [address] Performed By: #### 5 0190-8, 2275-4, 25383-5 #### [facility] CLIA [id number] [address] [facility] [address] [place] Creatinine [Mass/Vol] 0.58 mg/dL Normal 0.58-0.96 [facility] Comment on above: Order Comment: Rl men Type: BLOOD SPECIMEN Ordering Facility: [facility] Address: [address] [place] [address] Performed By: #### 5 0190-8, 2275-4, 27014-2 #### [facility] CLIA [id number] [address] [place] [address] [place] Creatinine and Glomerular filtration rate.predicted panel (S/P/Bld) 121 mL/min/1.73m??? Normal >=60 [facility] Comment on above: Order Comment: Rl basilio Type: BLOOD SPECIMEN Ordering Facility: [facility] Address: [address] [place] [address] Result Comment: Chely mated Glomerular Filtration Rate (eGFR) is calculated using the 2020 CKD-EPI creatinine equation. This equation utilizes serum creatinine, sex, and age as parameters. The creatinine assay has traceable calibration to isotope dilution-mass spectrometry. Refer to KDIGO guidelines for clinical interpretation. In patients with unstable renal function, e.g. those with acute kidney injury, the eGFR may not accurately reflect actual GFR. Performed By: #### 5 0190-8, 2275-, 30538-9 #### [facility] CLIA [id number] [address] [facility] [address] [place] Glucose [Mass/Vol] 95 mg/dL Normal 74-99 [facility] Comment on above: Order Comment: Rl basilio Type: BLOOD SPECIMEN Ordering Facility: [facility] Address: [address] [place] [address] Result Comment: The [place] [employer] Association (ADA) provides guidance for cutoff values for fasting glucose and random glucose. The ADA defines fasting as no caloric intake for at least 8 hours. Fasting plasma glucose results between 100 to 125 mg/dL indicate increased risk for diabetes (prediabetes). Fasting plasma glucose results greater than or equal to 126 mg/dL meet the criteria for diagnosis of diabetes. In the absence of unequivocal hyperglycemia, results should be confirmed by repeat testing. In a patient with classic symptoms of hyperglycemia or hyperglycemic crisis, random plasma glucose results greater than or equal to 200 mg/dL meet the criteria for diagnosis of diabetes. Reference: Standards of Medical Care in Diabetes 2016, [place] [employer]. Diabetes Care. 2016.39(Suppl 1). Performed By: #### 5 0190-8, 2275-, #### [facility] CLIA [id number] [address] [place] [address] [place] Potassium [Moles/Vol] 4.0 mmol/L Normal 3.7-5.1 [facility] Comment on above: Order Comment: Rl basilio Type: BLOOD SPECIMEN Ordering Facility: [facility] Address: [address] [place] [address] Performed By: #### 5 0190-8, 2275-07, #### [facility] CLIA [id number] [address] [place] [address] [place] Protein [Mass/Vol] 8.0 g/dL Normal 6.3-8.0 [facility] Comment on above: Order Comment: Rl basilio Type: BLOOD SPECIMEN Ordering Facility: [facility] Address: [address] [place] [address] Performed By: #### 5 0190-8, 2275-07, #### [facility] CLIA [id number] [address] [place] [address] [place] Sodium [Moles/Vol] 138 mmol/L Normal 136-144 [facility] Comment on above: Order Comment: Rl basilio Type: BLOOD SPECIMEN Ordering Facility: [facility] Address: [address] [place] [address] Performed By: #### 5 0190-8, 2275-07, 74339-6 #### [facility] CLIA [id number] [address] [place] [address] [place] Urea nitrogen [Mass/Vol] 12 mg/dL Normal 7-21 [facility] Comment on above: Order Comment: Speci chetna Type: BLOOD SPECIMEN Ordering Facility: [facility] Address: [address] [place] [address] Performed By: #### 5 0190-8, 6-4, 72505-5 #### [facility] CLIA [id number] [address] [place] [address] [place] FERRITINon 04-26-2024 Ferritin [Mass/Vol] 420.9 ng/mL High 14.7 - 2 05.1 ng/mL [facility] Ferritin SerPl-mCncon 2024 Ferritin [Mass/Vol] 420.9 ng/mL High 14.7-205.1 [facility] Comment on above: Order Comment: Speci men Type: BLOOD SPECIMEN Ordering Facility: [facility] Address: [address] [place] [address] Performed By: #### 5 0190-8, 2275-07, #### [facility] CLIA [id number] [address] [place] [address] [place] Ferritin [Mass/Vol]on 2024 Interpretation and review of laboratory results Abnormal [facility] HAV IgM Ser Qlon 04-26-2024 HAV IgM Ql (S) Negative Normal Negative [facility] Comment on above: Order Comment: Rl basilio Type: BLOOD SPECIMEN Ordering Facility: [facility] Address: [address] [place] [address] Result Comment: No e vidence of recent infection with Hepatitis A virus. Performed By: #### 5 0190-8, 2275-4, 19265-3 #### [facility] CLIA [id number] [address] [place] [address] [place] HBV core IgM Ser Qlon 2024 HBV core IgM Ql (S) Negative Normal Negative [facility] Comment on above: Order Comment: Dionicioi chetna Type: BLOOD SPECIMEN Ordering Facility: [facility] Address: [address] [place] [address] Result Comment: No e vidence of recent infection with Hepatitis B virus. Should recent infection be suspected, repeat testing may be considered 3-4 weeks after this draw. Performed By: #### 5 195-3, 60810-1, 77122-1 #### [facility] CLIA [id number] [address] [place] [address] [place] HBV surface Ag Ser Qlon HBV surface Ag Ql (S) Negative Normal Negative [facility] Comment on above: Order Comment: Speci men Type: BLOOD SPECIMEN Ordering Facility: [facility] Address: [address] [place] [address] Performed By: #### 5 0190-8, 2276-4, 43761-8 #### [facility] CLIA [id number] [address] [facility] [address] [place] HCV Ab Ser Qlon 04-26-2024 HCV Ab Ql (S) Negative Normal Negative [facility] Comment on above: Order Comment: Rl basilio Type: BLOOD SPECIMEN Ordering Facility: [facility] Address: [address] [place] [address] Result Comment: The result suggests no evidence of active infection with Hepatitis C virus. Should recent infection be suspected, repeat testing may be considered 4-6 weeks after this draw. Performed By: #### 1 6128-1 #### [facility] CLIA [id number] [address] [place] [address] [place] Iron and Iron binding capaci ty panelon 04-26-2024 Interpretation and review of laboratory results Normal [facility] Iron [Mass/Vol] 105 ug/dL 41 - 186 ug/dL [facility] Iron binding capacity [Mass/Vol] 340 ug/dL 232 - 386 ug/dL [facility] Iron/TIBC [Molar ratio] 30.9 % 15.0 - 57.0 % [facility] Iron [Mass/Vol] 105 ug/dL Normal 41-186 [facility] Comment on above: Order Comment: Speci men Type: BLOOD SPECIMEN Ordering Facility: [facility] Address: [facility] [place] [address] Performed By: #### 5 0190-8, 6-4, 01704-9 #### [facility] CLIA [id number] [address] [place] [address] [facility] [place] Iron binding capacity [Mass/Vol] 340 ug/dL Normal 232-386 [facility] Comment on above: Order Comment: Speci men Type: BLOOD SPECIMEN Ordering Facility: [facility] Address: [address] [place], [place] [address] Performed By: #### 5 0190-8, 4, 35009-1 #### [facility] CLIA [id number] [address] [place] [address] [facility] Iron/TIBC [Molar ratio] 30.9 % Normal 15.0-57.0 [facility] Comment on above: Order Comment: Speci men Type: BLOOD SPECIMEN Ordering Facility: [facility] Address: [address] [place], [place] [address] Performed By: #### 5 0190-8, 2275-07, 53251-7 #### [facility] CLIA [id number] [address] [place] [address] [facility] [place] Laboratory - Hematology and Cell countson 04-26-2024 Basophils/100 WBC (Bld) 0.5 % [facility] Eosinophils/100 WBC (Bld) 0.1 % [facility] Erythrocyte distribution width (RBC) [Ratio] 12.5 % 11.5 - 15.0 % [facility] Hematocrit (Bld) [Volume fraction] 46.1 % High 36.0 - 46.0 % [facility] Hemoglobin (Bld) [Mass/Vol] 15.5 g/dL 11.5 - 15.5 g/dL [facility] Lymphocytes/100 WBC (Bld) 22.6 % [facility] MCHC (RBC) [Mass/Vol] 33.6 g/dL 30.5 - 36.0 g/dL [facility] MCV (RBC) [Entitic vol] 95.1 fL 80.0 - 100.0 fL [facility] Monocytes/100 WBC (Bld) 3.3 % [facility] Neutrophils/100 WBC (Bld) 70.8 % [facility] RBC (Bld) [#/Vol] 4.85 10*6/uL 3.90 - 5.2 0 m/uL [facility] Mitochondria Ab IF Ql (S)on 04-26-2024 Mitochondria M2 Ab IA Qn (S) 2.8 Units Normal <=20.0 [facility] Comment on above: Order Comment: Speci chetna Type: BLOOD SPECIMEN Ordering Facility: [facility] Address: [address] [place] [address] Performed By: #### 5 0190-8, 2276-4, 06942-3 #### [facility] CLIA [id number] [address] [facility] Mitochondria M2 Ab Ql (S) Negative Normal Negative [facility] Comment on above: Order Comment: Rl basilio Type: BLOOD SPECIMEN Ordering Facility: [facility] Address: [address] [place] [address] Result Comment: Anti -mitochondrial antibody test is used as an aid in diagnosis of primary biliary cholangitis. Clinical correlation is required. Performed By: #### 5 0190-8, 2276-4, 99521-1 #### [facility] CLIA [id number] [address] [facility]. [address] No Panel Informationon 04-26 [facility] Interpretation and review of laboratory results Abnormal [facility] PT panel Coag (PPP)on 2024 INR Coag (PPP) [Relative time] 0.9 {INR} 0.9 - 1.3 [facility] Comment on above: Vitamin K Antagonist (VKA) Therapeutic Range: INR 2 to 3 (Target INR of 2.5) Note: For patients treated with VKA drugs, such as warfarin, the [place] [employer] 2012 Guideline recommends a therapeutic INR range of 2 to 3 (target INR of 2.5). This recommendation includes high-risk patients with antiphospholipid syndrome with previous arterial or venous thromboembolism, current-generation mechanical or bioprosthetic aortic heart valve replacement. Note: Patients with mechanical aortic valve replacement and additional risk factors for thromboembolic events (atrial fibrillation, previous thromboembolism, LV dysfunction, hypercoagulable conditions) or an older generation mechanical AVR (i.e., ball in-Cage) or any mechanical MVR should have a INR therapeutic range of 2.5 to 3.5 (target INR of 3). farshad Rodriguez. Chest 2012, 141:7S-47S Lit SALVADOR et óscar. [facility] 2017, 70: 252-289 Interpretation and review of laboratory results Normal [facility] PT Coag (PPP) [Time] 10.6 s [facility] INR Coag (PPP) [Relative time] 0.9 {INR} Normal 0.9-1.3 [facility] Comment on above: Order Comment: Rl basilio Type: BLOOD SPECIMEN Ordering Facility: [facility] Address: [address] [place] [address] Result Comment: Maya min K Antagonist (VKA) Therapeutic Range: INR 2 to 3 (Target INR of 2.5) Note: For patients treated with VKA drugs, such as warfarin, the [place] [employer] 2012 Guideline recommends a therapeutic INR range of 2 to 3 (target INR of 2.5). This recommendation includes high-risk patients with antiphospholipid syndrome with previous arterial or venous thromboembolism, current-generation mechanical or bioprosthetic aortic heart valve replacement. Note: Patients with mechanical aortic valve replacement and additional risk factors for thromboembolic events (atrial fibrillation, previous thromboembolism, LV dysfunction, hypercoagulable conditions) or an older generation mechanical AVR (i.e., ball in-Cage) or any mechanical MVR should have a INR therapeutic range of 2.5 to 3.5 (target INR of 3). Linda LEWIS et óscar. Chest 2012, 141:7S-47S Lit SALVADOR et al. [facility] 2017, 70: 252-289 Performed By: #### 3 4528-0 #### [facility] CLIA [id number] [address] [facility] [address] [place] PT Coag (PPP) [Time] 10.6 s Normal 9.7-13.0 [facility] Comment on above: Order Comment: Rl basilio Type: BLOOD SPECIMEN Ordering Facility: [facility] Address: [address] [place] [address] Performed By: #### 3 4528-0 #### [facility] CLIA [id number] [address] [place] [address] [facility] [place] Smooth muscle Ab Ql (S)on ACTIN SMOOTH MUSCLE IGG QUALITATIVE Negative Normal Negative [facility] Comment on above: Order Comment: Speci men Type: BLOOD SPECIMEN Ordering Facility: [facility] Address: [address] [place] [address] Performed By: #### 5 0190-8, 2276-4, 65247-1 #### [facility] CLIA [id number] [address] [place], [place] [address] [place] [address] ACTIN SMOOTH MUSCLE IGG QUANTITATIVE 5 Units Normal <20 [facility] Comment on above: Order Comment: Speci men Type: BLOOD SPECIMEN Ordering Facility: [facility] Address: [address] [place] [address] Performed By: #### 5 0190-8, 2276-4, 01181-9 #### [facility] CLIA [id number] [address] [place] [id number] [facility] ECHOon 04-09-2024 Echocardiography Echocardiography Report: Transthoracic Echo [facility] Date of service: 04/09/2024 3:28:57 PM Ordering physician: SOLO MORA Indication: Syncope Technologist: Josephine West [facility] Interpreting physician: Sheri Ac MD PATIENT: Name: ORION HARPER : 1990 Age: 33 years Gender: F Primary rhythm: sinus. Height: 157.50 cm BSA: 1.93 m Weight: 85.28 kg BMI: 34.4 kg/m Heart rate 88 bpm Blood pressure 127/91 mmHg Color Doppler was utilized to interrogate the cardiac valves assessed and spectral Doppler was utilized to determine the flow velocities and pressure gradients reported in this exam. MEASUREMENTS: Value Indexed Normal Max aortic dimension 2.8 cm Ao < 3.8 Left atrial volume 20 ml (biplane A-L) 10 ml/m Marcelino <= 34 LV ID (diastole) 3.7 cm (2D) 1.92 cm/m LV ID (systole) 2.5 cm (2D) 1.29 cm/m IVS, leaflet tips 1.1 cm (2D) Posterior wall thickness 1.2 cm (2D) Left ventricular mass 139 g (2D) 72 g/m LV stroke volume 32 ml (2D biplane) LV end diastolic volume 59 ml (2D biplane) 30.4 ml/m 29<=EDVi<62 LV end systolic volume 26 ml (2D biplane) 13.6 ml/m Ejection Fraction 55 % (2D biplane) EF > 54 FINDINGS: LEFT VENTRICLE The left ventricle is normal in size. There is no left ventricular hypertrophy. Left ventricular systolic function is normal globally. Normal left ventricular diastolic function. Mitral annular lateral E/e': 4.8. Mitral annular septal E/e': 6.9. Wall Motion: All scored segments are normal. RIGHT VENTRICLE The right ventricle is normal in size. Right ventricular systolic function is normal. RV systolic tissue Doppler velocity is 11.3 cm/s. Tricuspid annular displacement is 1.5 cm. Estimated right ventricular systolic pressure is not reported due to an insufficient tricuspid regurgitation signal. Estimated right atrial pressure is 3 mmHg based on IVC assessment. LEFT ATRIUM The left atrial cavity is normal in size. RIGHT ATRIUM The right atrial cavity is normal in size. Inferior Vena Cava: The inferior vena cava appears normal measuring 1.2 cm. The vessel decreases greater than 50 percent with inspiration. MITRAL VALVE The mitral valve leaflets are structurally normal. There is trace mitral valve regurgitation. The pressure half time is 44 msec. The peak mitral E/A ratio is 0.98. The mitral flow deceleration time is 151 msec. TRICUSPID VALVE The tricuspid valve leaflets are structurally normal. There is no tricuspid valve regurgitation. AORTIC VALVE The aortic valve cusps are structurally normal. There is no aortic valve regurgitation. Tricuspid aortic valve. PULMONIC VALVE The pulmonic valve cusps are structurally normal. There is trace pulmonic valve regurgitation. AORTA The visualized aorta is normal in size. Measurements - Mid ascending aorta 2.8 cm. PULMONARY ARTERIES The pulmonary arteries are normal. INTERATRIAL SEPTUM There is no evidence of intracardiac shunting as detected by Doppler. PERICARDIUM There is no pericardial effusion. There is an epicardial fat pad. CONCLUSIONS: - Exam indication: Syncope - The left ventricle is normal in size. There is no left ventricular hypertrophy. Left ventricular systolic function is normal. EF = 55 5% (2D biplane) Normal left ventricular diastolic function. - The right ventricle is normal in size. Right ventricular systolic function is normal. - There are no significant valvular abnormalities. - Estimated right ventricular systolic pressure is not reported due to an insufficient tricuspid regurgitation signal. Estimated right atrial pressure is 3 mmHg based on IVC assessment. - The patient has not had a prior CC echocardiographic exam for comparison. * * * Final * * * [facility] : [id number] 04-05-2024 CNPN Telephone (CARDMN) ORION HARPER ([id number]) 1990 F Date Time Provider Department 04/05/24 SOLO MORA During your visit today, we recorded the following information about you: Criss Mccrary 04/05/2024 1:02 PM Signed Outside ep I have a copy @ my desk Criss Velez 04/09/2024 11:49 AM Signed April 09, 2024 Patient Contact Number: [phone] Patient last seen within the last year: Yes 12/15 Reason For Call: Test Results Zio- 12/2023 Physician: Dr. Mora Patient was informed that non-urgent calls may be returned within the next three business days. Yes Joy Dahl RN 04/09/2024 2:14 PM Signed Cardiac clearance and office noted faxed to [facility]. In regards to Zio monitor. Dr Mora reviewed no concerning findings. PhoebJW Cruz Octavia 04/09/2024 2:38 PM Signed Form completed, faxed AND scanned into outside ep. Criss Mccrary Allergies As of Date: 04/05/2024 Noted Allergy Reaction IV CONTRAST (IODINE) 04/11/2019 [...] by: Analia Umanzor RN - Fully Assessed Reason for Visit: Received Outside Medical Records [3576] Cmt: Cardio Clearance [facility] Results [95] Cmt: Zio Prescriptions as of 04/09/2024 - amphetamine-dextroamp hetamine XR (ADDERALL XR) 30 mg capsule Take 30 mg by mouth once daily. - ALPRAZolam (XANAX) 0.5 mg tablet Take 0.25 mg by mouth two times a day. - cariprazine (VRAYLAR) 4.5 mg capsule Take 4.5 mg by mouth once daily. Problem List As Of Date 04/05/2024 Noted Resolved Gastroparesis [K31.84] 11/02/2022 Encounter Status:Closed by CRISS MCCRARY on 04/05/24 Normal [facility] HEMOGLOBIN A1con 04-04-2024 HEMOGLOBIN A1c 5.5 % of total Hgb Normal <5.7 Qu est Diagnostics Comment on above: Result Comment: For the purpose of screening for the presence of diabetes: <5.7% Consistent with the absence of diabetes 5.7-6.4% Consistent with increased risk for diabetes (prediabetes) > or =6.5% Consistent with diabetes This assay result is consistent with a decreased risk of diabetes. Currently, no consensus exists regarding use of hemoglobin A1c for diagnosis of diabetes in children. According to [place] [employer] (ADA) guidelines, hemoglobin A1c <7.0% represents optimal control in non- diabetic patients. Different metrics may apply to specific patient populations. Standards of Medical Care in Diabetes(ADA). Performed By: #### 4 96, 733 #### [facility] [address], [address] [place] [address] Pony Worker: Tim Dotson MD POTASSIUMon 04-04-2024 Potassium [Moles/Vol] 3.7 mmol/L Normal 3.5-5.[address] [facility] Comment on above: Order Comment: FASTI NG:YES FASTING: YES Performed By: #### 4 96, 733 #### [facility] [address], [address] [place] [address] Pony Worker: Tim Dotson MD CNPEma 04-02-2024 CNPN Telephone (CARDMN) ORION HARPER ([id number]) 1990 F Date Time Provider Department 04/02/24 SOLO MORAMN During your visit today, we recorded the following information about you: Criss Mccrary 04/02/2024 3:53 PM Signed This 'Ankle Surgery Clearance' was faxed over to Dr. Giovani Hagen (PCP) @ [phone] for signing. I spoke with the patient. Scanned into outside ep. Criss Mccrary Allergies As of Date: 04/02/2024 Noted Allergy Reaction IV CONTRAST (IODINE) 04/11/2019 [...] by: Analia Umanzor, RN - Fully Assessed Reason for Visit: Received Outside Medical Records [4761] Cmt: [facility] Prescriptions as of 04/02/2024 - amphetamine-dextroamp hetamine XR (ADDERALL XR) 30 mg capsule Take 30 mg by mouth once daily. - ALPRAZolam (XANAX) 0.5 mg tablet Take 0.25 mg by mouth two times a day. - cariprazine (VRAYLAR) 4.5 mg capsule Take 4.5 mg by mouth once daily. Problem List As Of Date 04/02/2024 Noted Resolved Gastroparesis [K31.84] 11/02/2022 Encounter Status:Closed by CRISS MCCRARY on 04/02/24 Normal [facility] IGP,APTIMA HPV,AGE GDLNon AGE GDLN ACOG TESTING Note . [facility] Comment on above: TESTS RESULT FLAG UN ITS REF RANGE LAB Clinician Provided Cytology Information Source.............Vagina No. of containers..01 ThinPrep Vial Age Algo ACOG Starla... 01 FLAG LEGEND: L-Low Normal,H-High Normal,LL-Alert Low,HH-Alert High <-Panic Low,>-Panic High,A-Abnormal,AA-Critical Abnormal Performed at: 01 =[facility] [place] [address] Zoraida Hawkins MD, HPV APTIMA Negative Negative [facility] Comment on above: This nucleic acid am plification test detects fourteen high- risk HPV types (16,18,31,33,35,39,45,51,52,56,58,59,66,68) without differentiation. Performed at: =G - [facility] [id number] Hydro Operator: Zoraida Hawkins MD, Phone: [phone] Performed at: - [facility], [place] [id number] Hydro Operator: Zoraida Hawkins MD, Phone: [phone] IGP, APTIMA HPV, RFX 16/18,45 Note . [facility] Comment on above: TESTS RESULT FLAG UN ITS REF RANGE LAB DIAGNOSIS: 02 NEGATIVE FOR INTRAEPITHELIAL LESION OR MALIGNANCY. Specimen adequacy: 02 Satisfactory for evaluation. Performed by: 02 Zehra Brush, Spanish Moss Picker (ASCP) . 02 Note: Note 02 The Pap smear is a screening test designed to aid in the detection of premalignant and malignant conditions of the uterine cervix. It is not a diagnostic procedure and should not be used as the sole means of detecting cervical cancer. Both false-positive and false-negative reports do occur. Test Methodology: Note 02 This liquid based ThinPrep(R) pap test was screened with the use of an image guided system. HPV Genotype Reflex Note 02 Criteria not met, HPV Genotype not performed. FLAG LEGEND: L-Low Normal,H-High Normal,LL-Alert Low,HH-Alert High <-Panic Low,>-Panic High,A-Abnormal,AA-Critical Abnormal Performed at: 02 [address] [place] [address] Zoraida Hawkins MD, SPATULA-ALONE [facility] Ambulatory Visit Summaryon 0 12-28-2023 Ambulatory Visit Summary Ambulatory Visit Summary ORION HARPER :1990 Visit Date:12/28/2023 Ambulatory Visit Instructions Your Diagnosis Recurrent UTI Kidney stones Smoker Your Care Team Attending Physician - OLEG OSEI, BHAVESH Patterson Primary Care Physician - HIEU FRIEDMAN, GIOVANI [...] FRIEDMAN, Madhuri Kendrick Where: [facility] [address] [address]- Medications What How Much When Instructions Unchanged [...] choosing us for your care. Normal [facility] Urology Office/Clinic Noteon 12-28-2023 Urology Office/Clinic Note Urology Office/Clinic Note Chief Complaint Patient is here for follow up with [facility] HPI Staff 1 year with [facility] done 11/16/23. Dx: recurrent UTI and kidney stones Patient has been having recurrent UTI's. She does [facility] thru video zoom and gets abx without [...] UTI, # 20 cap(s), Refills(s) 2, Pharmacy: [facility]/pharmacy #[id number], 158, cm, 12/28/23 15:24:00 EDT, Height/Length Dosing, 87, kg, 12/28/23 15:24:00 EDT, Weight Dosing E&M of Est. Patient Moderate 30-39 Min 50230 2. Kidney stones (N20.0: Calculus of kidney) S/p R ESWL. KUB 06/29/22 at [facility] - negative Metabolic workup 07/08/22 - slightly elevated Na (149), low output volume (1000 mL) KUB 11/16/23 - negative no recent flank pain, gross hematuria, stone passage. continue stone prevention diet repeat imaging 1 yr Ordered: cephalexin, See Instructions, 1 cap po after intercourse to prevent UTI, # 20 cap(s), Refills(s) 2, Pharmacy: [facility]/pharmacy #[id number], 158, cm, 12/28/23 15:24:00 EDT, Height/Length Dosing, 87, kg, 12/28/23 15:24:00 EDT, Weight Dosing E&M of Est. Patient Moderate 30-39 Min 14719 Urnls Dip Stick Auto w/o Microscopy POC 26197 3. Smoker (F17.200: Nicotine dependence, unspecified, uncomplicated) cessation encouraged Ordered: cephalexin, See Instructions, 1 cap po after intercourse to prevent UTI, # 20 cap(s), Refills(s) 2, Pharmacy: [facility]/pharmacy #[id number], 158, cm, 12/28/23 15:24:00 EDT, Height/Length Dosing, 87, kg, 12/28/23 15:24:00 EDT, Weight Dosing E&M of Est. Patient Moderate 30-39 Min 06530 Follow-up With When Contact Information BHAVESH DEJESUS PA-C, URL Within 1 year Additional Instructions: Patient Education Kidney Stones, [id number] Problem List/Past Medical History Ongoing Kidney stones [...] Mother. Immunizations Vaccine Date Status Comments SARSCoV2 mRNA(ella trivedi) vac 11/02/2021 Recorded SARS-CoV-2 (COVID-19) mRNA BNT-162b2 [...] vaccine, inactiva (more content not included)... Normal [facility] Comment on above: Result Comment: Elec tronically Signed By: OLEG OSEI, BHAVESH Patterson\.br\Date and Time Signed: 12/28/23 16:01 EDT CNOVon 12-19-2023 CNOV Office Visit (CARDMN ) ORION HARPER ([id number]) 1990 F Date Time Provider Department 12/19/23 2:45 PM SOLO MORA CARDMN During your visit today, we recorded the following information about you: Pulse Blood pressure Weight Height 94/minute 127/91 85.3 kg 1.575 m Solo Mora MD 12/28/2023 2:49 AM Signed [facility] Department of Cardiovascular Medicine SECTION OF CARDIAC PACING and ELECTROPHYSIOLOGY OUTPATIENT VISIT DATE December 19, 2023 OUTPATIENT VISIT TYPE NEW PRIMARY CARE PHYSICIAN: Giovani Hagen MD [address] [place] [address] CHIEF COMPLAINT: Syncope, cardiac evaluation for family [...] had any workup done including Stress Echo, tai chi instructor or 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 Reports symptoms of palpitations [...] QTC Calculation(Bazett) : 459 ms Calculated P [place] : 62 degrees Calculated R [place] : 55 degrees Calculated T [place] : 38 degrees NORMAL SINUS RHYTHM NORMAL ECG Confirmed by MD BAH HEBA ([id number]) on 12/30/2023 6:45:12 PM NAME : ORION HARPER PID : [id number] : 1990 Gender : Female Race : Other ORD : [id number] Procedure Date : Dec 19 2023 13:51:58 Edit Date : Dec 30 2023 18:45:15 Diagnosis: NORMAL SINUS RHYTHM NORMAL ECG Confirmed by MD BAH HEBA ([id number]) on 12/30/2023 6:45:12 PM Test Reason : Location : [facility] : [facility] J1-4 Overread By : MD BAH HEBA Edited By : WASSIF, MD,HEBA Referred By : , Acquired by : CHELSEY JOSEPH [facility] ALL CBC WITH AUTO DIFFon BASOPHILS ABSOLUTE AUTO 0.0 [facility] Basophils/100 WBC (Bld) 0.4 % 0.2 - 2.0 % [facility] Eosinophils/100 WBC (Bld) 2.8 % 0.9 - 7.0 % [facility] Erythrocyte distribution width (RBC) [Ratio] 12.4 % 11.0 - 15.0 % [facility] Hematocrit (Bld) [Volume fraction] 41.9 % 36.0 - 48.0 % [facility] Hemoglobin (Bld) [Mass/Vol] 14.2 g/dL 12.0 - 16.0 g/dL [facility] IMMATURE GRANULOCYTES ABS AUTO 0.03 [facility] Immature granulocytes/100 WBC (Bld) 0.4 % 0.0 - 0.5 % [facility] LYMPHOCYTES ABSOLUTE AUTO 2.8 [facility] Lymphocytes/100 WBC (Bld) 35.6 % 20.5 - 60.0 % [facility] MCH (RBC) [Entitic mass] 32.1 pg 26.7 - 34.0 pg [facility] MCHC (RBC) [Mass/Vol] 33.9 g/dL 29.9 - 35.2 g/dL [facility] MCV (RBC) [Entitic vol] 94.8 fL 81.0 - 99.0 fL [facility] MONOCYTES ABSOLUTE AUTO 0.5 [facility] Monocytes/100 WBC (Bld) 6.0 % 1.7 - 12.0 % [facility] NEUTROPHILS ABSOLUTE AUTO 4.3 [facility] Neutrophils/100 WBC (Bld) 54.8 % 43.0 - 75.0 % [facility] Platelet mean volume (Bld) [Entitic vol] 10.4 fL 9.5 - 13.5 fL [facility] TBH EO # 0.2 [facility] TB PLT 265 [facility] RBC 4.42 [facility] TB WBC 7.8 [facility] CNPNon 11-02-2023 CNPN Telephone (CARDUT) MEREDITHORION ([id number]) 1990 F Date Time Provider Department 11/02/23 SOLO MORA During your visit today, we recorded the following information about you: Criss Mccrary 11/02/2023 10:50 AM Signed Records are in Care Everywhere: EP Referral- 11/01/23 (Dr. Shilo Dillon/Cardiology) Crisseleuterio Mccrary Allergies As of Date: 11/02/2023 Noted [...] Tubeon 2022 Extra Lavender Tube Normal [facility] Comment on above: Performed By: #### X LAV, LIVP, LIP #### [facility] [address] [place] [address] Hydro Operator: Ronald Pearce MD Lipaseon 03-24-2023 Lipase [Catalytic activity/Vol] 260 U/L High 13-60 [facility] Comment on above: Performed By: #### X LAV, LIVP, LIP #### [facility] [address] [place] [address] Hydro Operator: Ronald Pearce MD Liver Profileon 03-24-2023 Albumin [Mass/Vol] 3.5 g/dL Normal 3.5-5.2 [facility] Comment on above: Performed By: #### X LAV, LIVP, LIP ####[facility] [address], [place] [phone] Director: Ronald Pearce MD Alkaline Phos 321 U/L High 35-104 [facility] Comment on above: Performed By: #### X LAV, LIVP, LIP ####[facility] [address] [place] [address] Lab Director: Ronald Pearce MD ALT [Catalytic activity/Vol] 137 U/L High 5-33 [facility] Comment on above: Performed By: #### X LAV, LIVP, LIP ####[facility] [address] [place] [address] Lab Director: Ronald Pearce MD AST [Catalytic activity/Vol] 60 U/L High <32 [facility] Comment on above: Performed By: #### X LAV, LIVP, LIP ####[facility] [address] [place] [address] Lab Director: Ronald Pearce MD Bilirubin [Mass/Vol] 1.0 mg/dL Normal 0.3-1.2 [facility] Comment on above: Performed By: #### X LAV, LIVP, LIP ####[facility] [address] [place] [address] Lab Director: Ronald Pearce MD Bilirubin, Indirect 0.4 mg/dL Normal 0.0-1.0 [facility] Comment on above: Performed By: #### X LAV, LIVP, LIP ####[facility] [address] [place] [address] Lab Director: Ronald Pearce MD Bilirubin.indirect [Mass/Vol] 0.6 mg/dL High <0.3 [facility] Comment on above: Performed By: #### X LAV, LIVP, LIP ####[facility] [address] [place] [address] Lab Director: Ronald Pearce MD Protein [Mass/Vol] 5.7 g/dL Low 6.4-8.3 [facility] Comment on above: Performed By: #### X LAV, LIVP, LIP ####[facility] [address], [place] [phone] Director: Ronald Pearce MD Extra Lavender Tubeon 2022 Extra Lavender Tube Normal [facility] Comment on above: Performed By: #### L IVP, XLAV ####[facility] [address] [place] [address] lab Director: Ronald Pearce MD FL CHOLANGIOGRAM [...] procedure report for more information. Interpreted by: aDnny Cole MD Signed by: Danny Cole MD 03/23/23 Final result Normal [facility] Liver Profileon 03-23-2023 Albumin [Mass/Vol] 3.5 g/dL Normal 3.5-5.2 [facility] Comment on above: Performed By: #### L IVP, XLAV ####[facility] [address] [place] [address] lab Director: Ronald Pearce MD Alkaline Phos 293 U/L High 35-104 [facility] Comment on above: Performed By: #### L IVP, XLAV ####[facility] [address] [facility] [place] [address] lab Director: Ronald Pearce MD ALT [Catalytic activity/Vol] 111 U/L High 5-33 [facility] Comment on above: Performed By: #### L IVP, XLAV ####[facility] [address] [place] [address] lab Director: Ronald Pearce MD AST [Catalytic activity/Vol] 43 U/L High <32 [facility] Comment on above: Performed By: #### L IVP, XLAV ####[facility] [address], [place] [phone] Director: Ronald Pearce MD Bilirubin [Mass/Vol] 2.6 mg/dL High 0.3-1.2 [facility] Comment on above: Performed By: #### L IVP, XLAV ####[facility] [address] [place] [phone] Director: Ronald Pearce MD Bilirubin, Indirect 0.8 mg/dL Normal 0.0-1.0 [facility] Comment on above: Performed By: #### L IVP, XLAV ####[facility] [address], [place] [phone] Director: Ronald Pearce MD Bilirubin.indirect [Mass/Vol] 1.8 mg/dL High <0.3 [facility] Comment on above: Performed By: #### L IVP, XLAV ####[facility] [address], [place] [phone] Director: Ronald Pearce MD Protein [Mass/Vol] 5.7 g/dL Low 6.4-8.3 [facility] Comment on above: Performed By: #### L IVP, XLAV ####[facility] [address] [place] [address] Lab Director: Ronald Pearce MD Surgical Pathology Reporton 03-23-2023 Surgical Pathology Report (NOTE) Path Number: [id number] -- Diagnosis -- A. GALLBLADDER AND CONTENTS, CHOLECYSTECTOMY: Cholelithiasis. Lulú Javed M.D. Electronically Signed Out kmg203/27/2023 Clinical Information Pre-op Diagnosis: ACUTE PANCREATITIS, UNSPECIFIED COMPLICATED STATUS, UNSPECIFIED TYPE Operative Findings: GALLBLADDER AND CONTENTS Operation Performed: LAPAROSCOPIC CHOLECYSTECTOMY tm Source of Specimen A: GALLBLADDER AND CONTENTS Gross Description ORION MEREDITH, GALLBLADDER AND CONTENTS Received in formalin [...] lesions or periductal lymph nodes are identified. Dashboard Developer sections 1c. tm SM/tb1:03/24/2023 Microscopic Description Microscopic examination performed. Processing Lab: [address] [phone] Interpretation Performed at [address] [phone] SURGICAL PATHOLOGY CONSULTATION Patient Name: ORION HARPER [facility] Rec: [id number] [facility] ANATOMIC PATHOLOGY [address] [place], [place] [phone] Normal [facility] CBC with Diffon 03-22-2023 Abs. Basophil <0.03 Normal 0.00-0.20 [facility] Comment on above: Performed By: #### C DP, LIP, CMPX #### [facility] [address] [place] [address] Hydro Operator: Ronald Pearce MD #### TRIG #### [facility] [address] [place] [address] Hydro Operator: Elio Marley MD Abs.Imm.Granulocyte 0.03 k/uL Normal 0.00-0.30 [facility] Comment on above: Performed By: #### C DP, LIP, CMPX #### [facility] [address] [place] [address] Hydro Operator: Ronald Pearce MD #### TRIG #### [address] [address] Hydro Operator: Elio Marley MD Abs.Neutrophil (Seg) 6.89 k/uL Normal 1.50-8.10 [facility] Comment on above: Performed By: #### C DP, LIP, CMPX #### [facility] [address] [place] [address] Hydro Operator: Ronald Pearce MD #### TRIG #### [address] [address] Hydro Operator: Elio Marley MD Basophils/100 WBC (Bld) 0 % Normal 0-2 [facility] Comment on above: Performed By: #### C DP, LIP, CMPX #### [facility] [address] [place] [address] Hydro Operator: Ronald Pearce MD #### TRIG #### [address] [address] Hydro Operator: Elio Marley MD Eosinophils (Bld) [#/Vol] 0.07 10*3/uL Normal 0.00-0.44 [facility] Comment on above: Performed By: #### C DP, LIP, CMPX #### [facility] [address] [place] [address] Hydro Operator: Ronald Pearce MD #### TRIG #### [address] [address] Hydro Operator: Elio Marley MD Eosinophils/100 WBC (Bld) 1 % Normal 1-4 [facility] Comment on above: Performed By: #### C DP, LIP, CMPX #### [facility] [address] [place] [address] Hydro Operator: Ronald Pearce MD #### TRIG #### [address] [address] Hydro Operator: Elio Marley MD Erythrocyte distribution width (RBC) [Ratio] 12.2 % Normal 11.8-14.4 [facility] Comment on above: Performed By: #### C DP, LIP, CMPX #### [facility] [address] [place] [address] Hydro Operator: Ronald Pearce MD #### TRIG #### [address] [address] Hydro Operator: Elio Marley MD Hematocrit (Bld) [Volume fraction] 36.9 % Normal 36.3-47.1 [facility] Comment on above: Performed By: #### C DP, LIP, CMPX #### [facility] [address] [place] [address] Hydro Operator: Ronald Pearce MD #### TRIG #### [address] [address] Hydro Operator: Elio Marley MD Hemoglobin (Bld) [Mass/Vol] 12.1 g/dL Normal 11.9-15.1 [facility] Comment on above: Performed By: #### C DP, LIP, CMPX #### [facility] [address] [place] [address] Hydro Operator: Ronald Pearce MD #### TRIG #### [address] [address] Hydro Operator: Elio Marley MD Immature granulocytes/100 WBC (Bld) 0 % Normal 0 [facility] Comment on above: Performed By: #### C DP, LIP, CMPX #### [facility] [address] [place] [address] Hydro Operator: Ronald Pearce MD #### TRIG #### [address] [address] Hydro Operator: Elio Marley MD Lymphocytes (Bld) [#/Vol] 1.62 10*3/uL Normal 1.10-3.70 [facility] Comment on above: Performed By: #### C DP, LIP, CMPX #### [facility] [address] [place] [address] Hydro Operator: Ronald Pearce MD #### TRIG #### [address] [address] Hydro Operator: Elio Marley MD Lymphocytes/100 WBC (Bld) 18 % Low 24-43 [facility] Comment on above: Performed By: #### C DP, LIP, CMPX #### [facility] [address] [place] [address] Hydro Operator: Ronald Pearce MD #### TRIG #### [address] [address] Hydro Operator: Elio Marley MD MCH (RBC) [Entitic mass] 32.5 pg Normal 25.2-33.5 [facility] Comment on above: Performed By: #### C DP, LIP, CMPX #### [facility] [address] [place] [address] Hydro Operator: Ronald Pearce MD #### TRIG #### [address] [address] Hydro Operator: Elio Marley MD MCHC (RBC) [Mass/Vol] 32.8 g/dL Normal 28.4-34.8 [facility] Comment on above: Performed By: #### C DP, LIP, CMPX #### [facility] [address] [place] [address] Hydro Operator: Ronald Pearce MD #### TRIG #### [address] [address] Hydro Operator: Elio Marley MD MCV (RBC) [Entitic vol] 99.2 fL Normal 82.6-102.9 [facility] Comment on above: Performed By: #### C DP, LIP, CMPX #### [facility] [address] [place] [address] Hydro Operator: Ronald Pearce MD #### TRIG #### [address] [address] Hydro Operator: Elio Marley MD Monocytes (Bld) [#/Vol] 0.57 10*3/uL Normal 0.10-1.20 [facility] Comment on above: Performed By: #### C DP, LIP, CMPX #### [facility] [address] [place] [address] Hydro Operator: Ronald Pearce MD #### TRIG #### [address] [address] Hydro Operator: Elio Marley MD Monocytes/100 WBC (Bld) 6 % Normal 3-12 [facility] Comment on above: Performed By: #### C DP, LIP, CMPX #### [facility] [address] [place] [address] Hydro Operator: Ronald Pearce MD #### TRIG #### [address] [address] Hydro Operator: Elio Marley MD Neutrophil (Seg) 75 % High 36-65 [facility] Comment on above: Performed By: #### C DP, LIP, CMPX #### [facility] [address] [place] [address] Hydro Operator: Ronald Pearce MD #### TRIG #### [address] [address] Hydro Operator: Elio Marley MD NRBC Automated 0.0 per 100 WBC Normal 0.0 [facility] Comment on above: Performed By: #### C DP, LIP, CMPX #### [facility] [address] [place] [address] Hydro Operator: Ronald Pearce MD #### TRIG #### [address] [address] Hydro Operator: Elio Marley MD Platelet mean volume (Bld) [Entitic vol] 10.7 fL Normal 8.1-13.5 [facility] Comment on above: Performed By: #### C DP, LIP, CMPX #### [facility] [address] [place] [address] Hydro Operator: Ronald Pearce MD #### TRIG #### [address] [address] Hydro Operator: Elio Marley MD Platelets (Bld) [#/Vol] 188 10*3/uL Normal 138-453 [facility] Comment on above: Performed By: #### C DP, LIP, CMPX #### [facility] [address] [place] [address] Hydro Operator: Ronald Pearce MD #### TRIG #### [address] [address] Hydro Operator: Elio Marley MD RBC (Bld) [#/Vol] 3.72 10*6/uL Low 3.95-5.11 [facility] Comment on above: Performed By: #### C DP, LIP, CMPX #### [facility] [address] [place] [address] Hydro Operator: Ronald Pearce MD #### TRIG #### [address] [address] Hydro Operator: Elio Marley MD WBC (Bld) [#/Vol] 9.2 10*3/uL Normal 3.5-11.3 [facility] Comment on above: Performed By: #### C DP, LIP, CMPX #### [facility] [address] [place] [address] Hydro Operator: Ronald Pearce MD #### TRIG #### [address] [address] Hydro Operator: Elio Marley MD Comp Metabolic Pr/rfx MGon 1 05-22-2022 Albumin [Mass/Vol] 3.5 g/dL Normal 3.5-5.2 [facility] Comment on above: Performed By: #### C DP, LIP, CMPX #### [facility] [address] [place] [address] Hydro Operator: Ronald Pearce MD #### TRIG #### [address] [address] Hydro Operator: Elio Marley MD Alkaline Phos 157 U/L High 35-104 [facility] Comment on above: Performed By: #### C DP, LIP, CMPX #### [facility] [address] [place] [address] Hydro Operator: Ronald Pearce MD #### TRIG #### [address] [address] Hydro Operator: Elio Marley MD ALT [Catalytic activity/Vol] 131 U/L High 5-33 [facility] Comment on above: Performed By: #### C DP, LIP, CMPX #### [facility] [address] [place] [address] Hydro Operator: Ronald Pearce MD #### TRIG #### [address] [address] Hydro Operator: Elio Marley MD Anion gap [Moles/Vol] 11 mmol/L Normal 9-17 [facility] Comment on above: Performed By: #### C DP, LIP, CMPX #### [facility] [address] [place] [address] Hydro Operator: Ronald Pearce MD #### TRIG #### [address] [address] Hydro Operator: Elio Marley MD AST [Catalytic activity/Vol] 34 U/L High <32 [facility] Comment on above: Performed By: #### C DP, LIP, CMPX #### [facility] [address] [place] [address] Hydro Operator: Ronald Pearce MD #### TRIG #### [address] [address] Hydro Operator: Elio Marley MD Bilirubin [Mass/Vol] 1.9 mg/dL High 0.3-1.2 [facility] Comment on above: Performed By: #### C DP, LIP, CMPX #### [facility] [address] [place] [address] Hydro Operator: Ronald Pearce MD #### TRIG #### [address] [address] Hydro Operator: Elio Marley MD BUN/CRE Ratio 17 Normal 9-20 [facility] Comment on above: Performed By: #### C DP, LIP, CMPX #### [facility] [address] [place] [address] Hydro Operator: Ronald Pearce MD #### TRIG #### [address] [address] Hydro Operator: Elio Marley MD Calcium [Mass/Vol] 8.1 mg/dL Low 8.6-10.4 [facility] Comment on above: Performed By: #### C DP, LIP, CMPX #### [facility] [address] [place] [address] Hydro Operator: Ronald Pearce MD #### TRIG #### [address] [address] Hydro Operator: Elio Marley MD Chloride [Moles/Vol] 105 mmol/L Normal 98-107 [facility] Comment on above: Performed By: #### C DP, LIP, CMPX #### [facility] [address] [place] [address] Hydro Operator: Ronald Pearce MD #### TRIG #### [address] [address] Hydro Operator: Elio Marley MD CO2 [Moles/Vol] 21 mmol/L Normal 20-31 [facility] Comment on above: Performed By: #### C DP, LIP, CMPX #### [facility] [address] [place] [address] Hydro Operator: Ronald Pearce MD #### TRIG #### [address] [address] Hydro Operator: Elio Marley MD Creatinine [Mass/Vol] 0.6 mg/dL Normal 0.5-0.9 [facility] Comment on above: Performed By: #### C ANIL GREWAL, CMPX #### [facility] [address] [place] [address] Hydro Operator: Ronadl Pearce MD #### TRIG #### [address] [address] Hydro Operator: Elio Marley MD GFR/1.73 sq M.predicted among non-blacks MDRD (S/P/Bld) [Vol rate/Area] mL/min/{1.73_m2} Normal >60 [facility] Comment on above: Result Comment: These [...] By: #### C ANIL GREWAL, CMPX #### [facility] [address] [place] [address] Hydro Operator: Ronald Pearce MD #### TRIG #### [address] [address] Hydro Operator: Elio Marley MD Glucose [Mass/Vol] 75 mg/dL Normal 70-99 [facility] Comment on above: Performed By: #### C ANIL GREWAL, CMPX #### [facility] [address] [place] [address] Hydro Operator: Ronald Pearce MD #### TRIG #### [address] [address] Hydro Operator: Elio Marley MD Potassium [Moles/Vol] 4.0 mmol/L Normal 3.7-5.3 [facility] Comment on above: Performed By: #### C DP, LIP, CMPX #### [facility] [address] [place] [address] Hydro Operator: Ronald Pearce MD #### TRIG #### [address] [address] Hydro Operator: Elio Marley MD Protein [Mass/Vol] 5.7 g/dL Low 6.4-8.3 [facility] Comment on above: Performed By: #### C DP, LIP, CMPX #### [facility] [address] [place] [address] Hydro Operator: Ronald Pearce MD #### TRIG #### [address] [address] Hydro Operator: Elio Marley MD Sodium [Moles/Vol] 137 mmol/L Normal 135-144 [facility] Comment on above: Performed By: #### C DP, LIP, CMPX #### [facility] [address] [place] [address] Hydro Operator: Ronald Pearce MD #### TRIG #### [address] [address] Hydro Operator: Elio Marley MD Urea nitrogen [Mass/Vol] 10 mg/dL Normal 6-20 [facility] Comment on above: Performed By: #### C DP, LIP, CMPX #### [facility] [address] [place] [address] Hydro Operator: Ronald Pearce MD #### TRIG #### [address] [address] Hydro Operator: Elio Marley MD K (Potassium)on 03-22-2023 Potassium [Moles/Vol] 3.8 mmol/L Normal 3.7-5.3 [facility] Comment on above: Performed By: #### K #### [facility] [address] [place] [address] Hydro Operator: Ronald Pearce MD Lipaseon 03-22-2023 Lipase [Catalytic activity/Vol] 198 U/L High 13-60 [facility] Comment on above: Performed By: #### C DP, LIP, CMPX #### [facility] [address] [place] [address] Hydro Operator: Ronald Pearce MD #### TRIG #### [facility] [address] [place] [address] Hydro Operator: Elio Marley MD MRI ABDOMEN WO [...] Hooker MD 03/22/23 Final result Normal [facility] Triglycerideson 03-22-2023 Triglyceride [Mass/Vol] 102 mg/dL Normal 0-149 [facility] Comment on above: Result Comment: Triglyceride Guidelines: <150 Desirable 150-199 Borderline 200-499 High >499 Very high Based on AHA Guidelines for fasting triglyceride, January 2012. Performed By: #### C DP, LIP, CMPX #### [facility] [address] [place], [place] [address] Hydro Operator: Ronald Pearce MD #### TRIG #### [facility] [address] [place], [place] [id number] Hydro Operator: MD Lincoln Gordillo 03-20-2023 [facility] Telephone (FVPRAD) ORION HARPER ([id number]) 1990 F Date Time Provider Department 03/20/23 CHARLETTE CAMPUZANO FVPRAGonzalez During your visit today, we recorded the following information about you: Charlette Campuzano MD 03/20/2023 6:32 PM Signed Patient [...] Resolved Gastroparesis [K31.84] 11/02/2022 Encounter Status:Closed by CHARLETTE CAMPUZANO on 03/20/23 Normal [facility] DENY Antinuclear Antibodieson 10-26-2022 Antinuclear Abs, IFA Negative Normal . [facility] Comment on above: Order Comment: Reaso n for Exam Elevated liver enzymes Result Comment: Nega tive <1:80 Borderline 1:80 Positive >1:80 ICAP nomenclature: AC-0 For more information about Hep-2 cell patterns use ANApatterns.org, the official website for the International Consensus on Antinuclear Antibody (DENY) Patterns (ICAP). Performed at: [facility] [id number] Hydro Operator: Demarcus Moreno PhD, Phone: [phone] Performed By: #### A NA, HEMOCHROM, IGG, MITOM2, ALPHA PHEN, HAABT, SMAB, CERULOP, L-K MICRO #### [facility] , #### [place] #### [address] Lorqq-5-Jpifexrmjmv Phenotyp maki 10-26-2022 Alpha 1 Anti-Trypsin 121 mg/dL Normal 100-188 [facility] Comment on above: Order Comment: Reaso n for Exam Elevated liver enzymes Performed By: #### A NA, HEMOCHROM, IGG, MITOM2, ALPHA PHEN, HAABT, SMAB, CERULOP, L-K MICRO #### [facility] , #### [place] #### [address] Phenotype (P1) MM Normal . [facility] Comment on above: Order Comment: Reaso [...] Ranges used to confirm phenotype. Performed at: [address] [id number] Hydro Operator: Demarcus Moreno PhD, Phone: [phone] Performed at: [address] [id number] Hydro Operator: Yuli Callejas MD, Phone: [phone] Performed By: #### A NA, HEMOCHROM, IGG, MITOM2, ALPHA PHEN, HAABT, SMAB, CERULOP, L-K MICRO #### [facility] , #### [place] #### [address] Ceruloplasminon 10-26-2022 Ceruloplasmin 27.2 mg/dL Normal 19.0-39.0 [facility] Comment on above: Order Comment: Reaso n for Exam Elevated liver enzymes Result Comment: Perf ormed at: [address] [id number] Hydro Operator: Demarcus Moreno PhD, Phone: [phone] PERFORMED BY: [place] [address] PATHOLOGIST PRODUCTION HONING MACHINE OPERATOR ILIANA CAMP M.D. Performed By: #### A NA, HEMOCHROM, IGG, MITOM2, ALPHA PHEN, HAABT, SMAB, CERULOP, L-K MICRO #### [facility] , #### [place] #### [address] Ferritinon 10-26-2022 Ferritin [Mass/Vol] 106.5 ng/mL Normal 11.0-306.8 [facility] Comment on above: Order Comment: pt is fasting Reason for Exam Elevated liver enzymes Result Comment: PERF ORMED BY: [place] [address] PATHOLOGIST PRODUCTION HONING MACHINE OPERATOR ILIANA CAMP M.D. Performed By: #### A NA, HEMOCHROM, IGG, MITOM2, ALPHA PHEN, HAABT, SMAB, CERULOP, L-K MICRO #### [facility] , #### [place] #### [facility] [address] Ferritin [Mass/volume] in Se rum or PlasmaOrdered By: Erwin Hylton on 10-26-2022 Ferritin [Mass/Vol] 106.5 ng/mL 11.0-306.8 [facility] Hepatitis A Antibody Totalon 10-26-2022 Hepatitis A Antibody Total Negative Normal Negative [facility] Comment on above: Order Comment: Reaso n for Exam Elevated liver enzymes Result Comment: Perf ormed at: - [facility] [address] [id number] Hydro Operator: Demarcus Moreno PhD, Phone: [phone] PERFORMED BY: [place] [address] PATHOLOGIST PRODUCTION HONING MACHINE OPERATOR ILIANA CAMP M.D. Performed By: #### A NA, HEMOCHROM, IGG, MITOM2, ALPHA PHEN, HAABT, SMAB, CERULOP, L-K MICRO #### [facility] , #### [place] #### [facility] [address] [place] [address] Hereditary Hemochromatosis,D NAon 10-26-2022 Hereditary Hemochromatosis Normal . [facility] Comment on above: Order Comment: Reaso n for Exam Elevated liver enzymes Result Comment: Resu lt: c.845G>A (p.Ebq010Moe) - Not Detected c.187C>G (p.Fpo39Pvn) - Not Detected c.193A>T (p.Ksi23Tfr) - Not Detected Not associated with increased [...] for patients who are homozygous for c.845G>A (p.Iua843Svb) and have yet to experience clinical symptoms. Comments: The most common HFE variants associated with hereditary hemochromatosis are c.845G>A (p.Msf706Exv), c.187C>G (p.Prf44Jfg), c.193A>T (p.Qth15Icf). While patients homozygous for c.845G>A (p.Kdb832Lyz) are the most likely to present clinical symptoms, less than 10% develop clinically significant iron overload with tissue and organ damage. Genetic counseling is recommended to discuss the potential clinical implications of positive results, as well as recommendations for testing family members. Genetic Coordinators are available for health care providers to discuss results at [phone] ([phone]). Test Details: Three variants analyzed: c.845G>A (p.Ebl312Zud), commonly referred to as C282Y c.187C>G (p.Umw63Wdt), commonly referred to as H63D c.193A>T (p.Wfp69Oae), commonly referred to as S65C Methods/Limitations: DNA [...] developed and its performance characteristics determined by [employer]. It has not been cleared or approved by the Food and Drug Administration. References: Brodie BR, Yoav PC, Deborah KV, Raymond LW, Ramsey ; [place] [employer] Liver Diseases. Diagnosis and management of hemochromatosis: 2011 practice guideline by the [place] the [employer] Liver Diseases. Hepatology. 2011 Oct;54(1):328-43. doi: 10.1002/hep.71975. PMID: 64770698; PMCID: OHA5129983. Cora G, Olegario P, Fabio MCDONALD, Tabatha H, Love O, Zev S, Vazquez I, Kofi M, Sunitha S. [facility] best practice guidelines for the molecular genetic diagnosis of hereditary hemochromatosis (HH). Eur J Hum Margaret. 2016 Jul;24(4):479-95. doi: 10.1038/ejhg.2015.128. Epub 2014Oct 29. PMID: 51959431; PMCID: BSV8573142. Performed By: #### A NA, HEMOCHROM, IGG, MITOM2, ALPHA PHEN, HAABT, SMAB, CERULOP, L-K MICRO #### [facility] , #### [place] #### [address] Reviewed by: Dm Reyna, PhD Normal . [facility] Comment on above: Order Comment: Reaso n for Exam Elevated liver enzymes Result Comment: Perf ormed at: TG - [facility] [address] [place], [place] [id number] Hydro Operator: Vivian Kelley [facility], Phone: [phone] PERFORMED BY: [place] [address] PATHOLOGIST PRODUCTION HONING MACHINE OPERATOR ILIANA CAMP M.D. Performed By: #### A NA, HEMOCHROM, IGG, MITOM2, ALPHA PHEN, HAABT, SMAB, CERULOP, L-K MICRO #### [facility] , #### [place] #### [facility] [address] [place] [address] Immunoglobulin Harvey 3 Immunoglobulin G 865 mg/dL Normal 586-6322 [facility] Comment on above: Order Comment: Reaso n for Exam Elevated liver enzymes Result Comment: Perf ormed at: CB - [facility] [address] [id number] Hydro Operator: Demarcus Moreno PhD, Phone: [phone] Performed By: #### A NA, HEMOCHROM, IGG, MITOM2, ALPHA PHEN, HAABT, SMAB, CERULOP, L-K MICRO #### [facility] , #### [place] #### [place] [address] [place] Liver-Kidney Microsomal Abon 10-26-2022 Liver-Kidney Microsomal Ab <1.0 Normal 0.0-20.0 [facility] Comment on above: Order Comment: Reaso [...] MICRO #### [facility] , #### [place] #### [place] [address] [place] Mitochondrial (M2) Antibodyo n 10-26-2022 Mitochondrial (M2) Antibody <20.0 Normal 0.0-20.0 [facility] Comment on above: Order Comment: Reaso n for Exam Elevated liver enzymes Result Comment: Nega tive 0.0 - 20.0 Equivocal 20.1 - 24.9 Positive >24.9 Mitochondrial (M2) Antibodies are found in 90-96% of patients with primary biliary cirrhosis. Performed at: [facility] [id number] Hydro Operator: Demarcus Moreno PhD, Phone: [phone] Performed By: #### A NA, HEMOCHROM, IGG, MITOM2, ALPHA PHEN, HAABT, SMAB, CERULOP, L-K MICRO #### [facility] , #### [place] #### [place] [address] [place] Smooth Muscle Antibodyon 07- 05-2023 Smooth Muscle Antibody 4 Normal 0-19 [facility] Comment on above: Order [...] MICRO #### [facility] , #### [place] #### [address] liveron 10-26-2022 [facility] [place] [address] [place] [address] Ultrasound Report Signed Patient: Orion Harper MR#: [id number] : 1990 Acct:[id number] Age/Sex: 32 / F ADM Date: 10/26/22 Loc: Room: Type: [facility] Attending Dr: Erwin Hylton MD Ordering Provider: [...] Perdomo Jr., D.O.10/26/2022 3:24 PM Dictation Location: [place] [address] Tech: Francia Lopez Transcribed By: GRANT 10/26/22 1524 Dictated By: Alexandro Perdomo Jr, DO 10/26/22 1523 Signed By: 10/26/22 1524 [facility] NM GASTRIC EMPTYING SOLIDon 09-12-2022 [facility] Stomach Views for gastric emptying solid phase W radionuclide Izabella 09-12-2022 IMPRESSION: EVIDENCE OF DELAYED RATE OF GASTRIC EMPTYING OF SOLID MEAL. ABNORMAL STUDY: 36-50% RETENTION AT 4 HOURS IS CONSISTENT WITH SEVERE GASTROPARESIS. Drywall Hanger Framer: MINAL Transcribe Date/Time: Sep 12 2022 3:02P Dictated by : LUZ MARINA VÁZQUEZ MD This examination was interpreted and the report reviewed and electronically signed by: LUZ MARINA VÁZQUEZ MD on Sep 12 2022 3:05PM [facility] * * *Final Report* * * DATE OF EXAM: Sep 12 2022 2:44PM [facility] 0017 [facility] GASTRIC EMPTYING SOLID / PROCEDURE REASON: Nausea [...] (rapid emptying is <30% retention at 1hr). [facility] Provider, Iain Staton [facility] - 09/12/2022 * * *Final Report* * * DATE OF EXAM: Sep 12 2022 2:44PM [facility] 0017 - [place] GASTRIC EMPTYING SOLID / PROCEDURE REASON: Nausea [...] 4 HOURS IS CONSISTENT WITH SEVERE GASTROPARESIS. Drywall Hanger Framer: PSCB Transcribe Date/Time: Sep 12 2022 3:02P Dictated by : LUZ MARINA VÁZQUEZ MD This examination was interpreted and the report reviewed and electronically signed by: LUZ MARINA VÁZQUEZ MD on Sep 12 2022 3:05PM EST [facility] Radiology Study observation (narrative) [facility] Stomach Views for gastric emptying solid phase W radionuclide POOrdered By: Ccf Provider on 09-12-2022 [facility] EGD Study observation Narrat iveon 09-02-2022 [facility] Gastroenterology Gastrointestinal Endoscopy Patient Name: Orion Harper Procedure Date: 08/31/2022 2:51 PM Date of : 1990 Admit Type: Outpatient Age: 31 Room: [place] [address] Gender: Female Note Status: Applications Architect Override Attending MD: Grayson Peter MD Procedure: Upper GI endoscopy Indications: Follow-up of Helicobacter pylori, Follow-up of gastric ulcer Providers: Grayson Peter MD Patient Profile: This is a 31 year old female. Refer to note in patient chart for documentation of history and physical. Referring Physician: Grayson Peter MD (Referring MD), Giovani Hagen MD (Referring [...] verified by the physician, the nurse, the film laboratory technician and the transmission technician in the procedure room at 14:52 [...] the gastric (more content not included)... [employer]OVATION [facility] SURGICAL PATHOLOGYOrdered By : Jameel Jasmine on 09-01-2022 Case Report Surgical Pathology Report Case: [id number] Authorizing Provider: Grayson Peter MD Collected: 08/31/2022 03:04 PM Ordering Location: Ambulatory Surgery Received: 08/31/2022 09:20 PM Pathologist: Jameel Jasmine MD Specimens: A) - SMALL INTESTINE BIOPSY, r/o celiac B) - ANTRUM (STOMACH) BIOPSY, r/o hpylori C) - STOMACH BIOPSY, gastric body r/o hpylori [facility] Work Phone: Diagnosis Comment k6vlxSEwDNRqaLPaXYQc N OkrhvSvJSVoiMXfV2Jnev mxLNojYL6qXN3nmCsvvKK erZXeFGUvDiZek6xcx346 cNKyv5lrNEUUhvkwgOv0w KlaE66tu2B1NeszK45psB PeZSH2ARPrVWGhgEOlXEY xLHB3NPJukDFiT4tzFTAb OW4lodhcSMazZOnxLFIhv HI7PNMotNPoZ1UwMPRrOR suFUGjaey6FsHrRg8byGF yeTcyMFxwYXJkXHBsYWlu RQScGcUgJLoptm0vC95dm OKoRNplaUfzSVNwi12if7 lhq0CwmG96HVX3FTFpwSn wlFSiFNVriTl4JWJ7jQDw IImadRzlrFU9O9i0ELsqq HJhZXBpdGhlbGlhbCBseW 4enM0diHAjh4hrKdBXeWG hAJJmaM7qxE1qrxMridBh zl15DCJegRofTJm6DACrW WNpZmljOyBkaWZmZXJlbn VrBZoeE47ai0chMWVxyQg welToy334bGCtuR4rhIRt ZSBsYXRlbnQgIGNlbGlhY bBypTZ4KIwiMPZabEM1lB QpgpGaPQOsEHGvNg6snEe lYPXQJ5TWNBGtVT5vXSqx SgVdzLyjmIEvF9MvuYHtS N29SWBtpZjrCTivtyNbyO RpbmcgSGVsaWNvYmFjdGV mGCV2dJ2gxYsqNA8zlmly j0PuONUrMbWkL04eeuVqG GAoJHnqcWfpz1Ija2btB8 aww7A0RDmnmt4mrPTutL= = [facility] Work Phone: FINAL DIAGNOSIS x1lflVAiAJMsfNPyFJGf N WjpclBiHENdwBUjM4Ngfl ctESpaFF9tSZ7dcFdmsEX quNBhIZKaGbSna5zmt171 sHTbp7nvHIUQkmcuuDc0l SeqA47xc7X8LtolP98zmF GbTVV2KYYwXLTxbIIsBVX cKMI5WIMkeMEgP2fcNOYl QP7gncavXShhVDakJWGen YH7XOPyyJZwS9KeIUIfCH cxNHEvpho3JjIdJh5pwJY yeTcyMFxwYXJkXHBsYWlu JSSoKuSiNE9fGQXtFYnjH GludGVzdGluZSwgYmlvcH W5XdygpE7oND3IcSBjjKH zizXms9QxbkGsJA45L85y WZU7dGFmPM9pni9vaCJ6e Apnk0WqDFFsL8ojbVUksV AsLFRhtwZlv9xyV0a7K8L hdGNoeSBpbmNyZWFzZSBp biBpbnRyYWVwaXRoZWxpY QkilXeydQesD1h0AXUfgX uzZNpefJ1pMMFcYTDVrH6 kDTOjWAPfldPmpF3pTKMi u6RlyHqayToiOWCbPVSxv ATcXfBrlRVjZRZ3sZ2rlD Hcc6PxD7wwzILuZYHjxn3 nsLBrMUD0bCWoZSntb5Qi wIYzw1kybR4pWA9Yk3Lkx Ua5HYVgz0AyEFTcuIBsAo GxqFAuQHD6jN7dtJTvhqn tukwsjBShf27kxq91cGbq AZQpqSFkxkxfF4kanK3aD YrpzaNbSa7eVYN8w26fB1 leHFPcJBssYSTpq4AnhLt cbGluZSAtSGVsaWNvYmFj cEWcDKC6cW9pbKCet7MbC 4aacYBxPAYnpb9uuUBhBT E4zFPpOTvnn9IseMJsx5g cqL2eQB5Qq3WfnVw3FYEm a6XaWIUeyPIwSbQwkJQbI ZE2mQ0zxUBljkzsicigfV Zsy53fmh81jDfoYZSduQV uejbhL4uwBZZ7 [facility] Work Phone: Gross Description c1ilpYHbMIFrsNLGWWCa M PKqTE9iwMzlaAt8gJvuTA GxiyV8nBNyXDuvi0jaHAK 4y4lhwxOUNdzaXSXqGHlz EQGoswdjBcU0ESalAQFla zjzBWe3KSarLRDhyDM4IE RtaELwV5CmXNSkTU4ozln 0BPN1ODcwQWFwIyZ1FATi HqFhHjuoTLr3CCIvezJ2P vz6AESzKXUvcSJbr1G7XL ncjrovVRTemRHlX578RDr wz3KavZByTKmsjZHtLPZM VokwHtduqIlvs5InyMWcF GlkIDUxMDAwIFxcbmggXF z0GMUtTNwcqKGaYR8htJu lFklixGuns8OkzUMeBBsr RWWgFWIeMBcrVWYrJS1BT tNuYHGlEJO8EIygNkC3KZ b5UOVZXkFqZkWrWlOnWHH pAvMgDYh6NVc3BQdULiRi FPYuPiKnAYNjVdI4HXphP yBcXHQgMiBcXGYgQXJpYW pnLZmdgIZxOA9tbEzteIW pbiBBLiBTTUFMTCBJTlRF K4UZIvQxTrlTZLYWQOAba iANClxlcGljTmVzdERvYz EgDQpcbHRycGFyXGxpbjB ccmluMCANClxsdHJjaFxm uhVlMWPiI2CrfhFeMXikS HPitv8imVufCSEwFOWvaA e0dBYpDEFojXHiHPMxx9D npDFpMJZiq0V6LVJov8D0 LZVdD8ajGNgdiAezVoJ9n yAxLjAgeCAwLjIgeCAwLj OdI60oFJZemRRujOglc1R mgUh9kXUnBWuqSG2kHLHg OIOgHJV3AJ5svFztCDIDD lxlcGljTmVzdERvYzBcdj F8HLMtcJEwEUK0WX0gNMY aieryPWYzALXfHIC0FVee vC66fOEfAWCcGCWpgAVvv VxwbGFpbiANCntcKlxlcG twb2XihFDxTHezZJPaMXQ kCOatTHPpHV5IUdEnJTMs EQT9IEkrWeS4OPk7QECOU lMgIiAgMzExNDIyNzQiID s7TYp2NJbZAfBrXISyStZ hEBC9TJH7KZgmRhDmILFi MiBcXGYgQXJpYWwgXFxmb MHeEB8vlVcjuAGmssnied F7ZUNfXUbrOITaPBDAGRY WWEWlI4DFFHADUKrgFiyO UFNZXHBhciANClxlcGljT mVzdERvYzEgDQpcbHRycG FyXGxpbjBccmluMCANClx ggLOboNladsLqNSEwX2Gu wsTaDMihMIDord4dbZsqA FFwPZNxjBi2kYBpYLFazH TtYPDhy8RyvCByANHfi3F 1NNGij6G2DGGuG0rkKHvs kToyYyK0xrNsSqDkcZJtR qGgoWVrXbQlW00qVTEdpN UdkIcrw4EvgWe7uVGwNRu wRN9oZLVwMSVhPKU5OF4k bGluZSANClxlcGljTmVzd ZKxEiZbswM5KDWqkUSpRL B6RQ6tVVNwstfvYIDkNEQ vZDY0PEhcaR26vHHkXOVi MTZccGFyfVxwbGFpbiANC dijIqfooXuew8NdsRUmHH lkIDUxMDAyIFxcZGIgIE9 CNsHnJZCeAKB6KSlxKbU2 QFz7UTPTXfSvOgIfJxRdU DBuGrDcFDl7TFx2EVbUWy GdSSErWxWdXTp7DyP9XNs yNyBcXHQgMiBcXGYgQXJp CAgwFHqtwRUaAI8pmLstp SNboqbnpqD2YPOhSAhbXM FbDFJMB93GB4enRnzWLER ZXHBhciANClxlcGljTmVz dERvYzEgDQpcbHRycGFyX GxpbjBccmluMCANClxsdH UmqQwtvcAgTRWoU4WayjB lPEtaRDWgnp9qzGceUFBl CEOdoGs7sOTjEZOdyUWxG MOpc3JjxYDvUOZes6T4BX Kje2D5LDNgX0vqWLtjbRr lBwD0zzPyJyyquMIrUrNg lIUxGcWtL19vXBOtxDYcv Gbhg4BkrYt8bNNzZRliAT 6sQSSmYBRqFPP4XF9loCq rDGMgALXubqHDBbeIYB8i eSAxMSwgMjAyMyAxOjQxI EZIWZ9maFHsAU4XZLFivt ZHOvrki7QxIXU5ZF9zrkC 1fM6gNSYbdzSnxa5sRAAd aUEWuWM6YKyvubDhV7rqn rnmNDD7UKOiHVP2H6cgIC EVxiToEVRBfZU2WDcbnxQ mPA0WOOZ6CFj5ZKBpdoCT ClxlcGljTmVzdERvYzBcd tK0YPHqkYFwNRX6ED2wQZ YahvboLCAnKSPsIJY7UVj cnY47pDSwLNQkGOIqiFOx nHgjyJZucbMIRgkmwW8qQ iLpq4zlcHg2VZZYRqrtsH UitrqtndX3PCKnt7tlpQi db0LyaIHjOS0niGggwV2c ZnMxNiANCn0= [facility] Work Phone: Performing Lab w1sntFZrLOEtgLZdEfMz M COuROVee6tmWQUxhHUhCp EwMzNcZnRuYmpcdWMxXGR yWzAsj2kfu403kTGle3wt NWGuJuZ4aMKjYGHjlZTzP 315JLUeFPovx0ykl4KcAG GigUOhw9E6JAIQvohymBb 5hMenX79hu6L5TkpjQ2ma NXLiHEKoZ2MmIA2tQRRcW wl2WDZ9IYV1JJGrSAKbQ1 DgOH6kYSDpxPEyRGc7r2d owOorVHMwEFT4q3imMSqd wwElVH6oej2gyUb5y3gyj zEgRGVmYXVsdCBQYXJhZ3 EbrBfoRt9xkHn4vWvzUra mPWE1Diz7ZI4wft93zbz7 oPbpVYSzxbpvPoQ3XKbdP NVdivfrKWg7BUplCZMmsY C3BBExoVKhD4CzLTdtOC2 rhzh4PSA2WJmyPLLsVvQ0 NDBcaGVhZGVyeTcyMFxmb 702TEA5UmTvSA6nC2Ixt7 B8lG5xyVDyBSLofOHwEpU zBRVsoh9hpQWgVPnml9Ez EJB2ogD1gKSsuSWdJBNbO U12Mqmvg9TsCamyv9CjL3 3nfBC7OOiss8ttRR6dYlX 4olWfOJnbl2aedT8rNgG8 UWxvRP6lCE6gLSKqiG7es mxjXHBnYnJkcmhlYWRccG wphyLiKd6onZzkTAI5TEy eO0ekbQ2eByW4YWfxQ2hm rH6bLOu1VVwsbVF6QWOxz L9sQX5zvwomt3kdRGrtRQ wtZRFskoS0fiHhFTWdbOJ dT3SdcR4rGKZpSD3lwmam p4fzWBT9USzyEZSvHDZ4O kNwOHDdw9Scobm6CyOey1 FinNEuIGhaZ66um205BJI fqkTpE2cuaXEyhclchYUk xvyjHXldcgT4HPIrUXKnW WluXGYxXGZzMjJcbGFuZz EwMzNcaGljaFxmMVxkYmN aVBRaQAodY0xfOxYdPvAx UoCSeMRvuo4tdSqhJJcms PHyfGEvcCO8vO4kGUKnng Ittz6xEYDctELWgLO5UHf ntsRcG8nydogyEVN7BIXc TCX5W3fvSBTUjrWsBMHlT FUxyXOkCUDZPSO8KVJ7ER FmKJKCSDGhNAG2WRO7SKF wOTRccGFyXHBhclxwYXJk XHBsYWluXGYwXGZzMjRcc ZvvmZ6pYjLnGyDuYyzgJF 7zZDQdL5lxwGMnHFFuNCI mJ3byIcGflU4tpUsgVZnu ZjJcZnMyMlxsdHJjaCBMY OMxdaM5p6O0SXeptFVixd xmMVxmczIyXGxhbmcxMDM qPSatN2zzNsDjXVVasLgu RMixr6YqPKImRGQoQbItI VwkZJL8x9D4YWtqcTYxam HISuTRSJ6onNEggagtLW8 ELlxwYXJ9 [facility] Work Phone: [facility] Work Phone: EGD Study observation Narrat iveon 08-31-2022 Radiology Study observation (narrative) [facility] CITRATE URINE 24HRon 023 Citric Acid, U, 24hr 472 mg/24 hr Normal 320-1240 [facility] Comment on above: Result Comment: This test was developed and its performance characteristics determined by [employer]. It has not been cleared or approved by the Food and Drug Administration. Performed By: #### A LPHPHN #### [facility] [address] [place] [address] [address] Li Nagel Citric Acid, Urine 472 mg/L Normal Undefined [facility] Comment on above: Performed By: #### A LPHPHN #### [facility] [address] [place] [address] [address] Li Nagel OXALATE 24HR URINEon 023 Oxalates, Urine 19 mg/L Normal Undefined [facility] Comment on above: Performed By: #### O X24HR #### [facility] [address] [place] [address] [address] Li Nagel Oxalates, Urine 24hr 19 mg/24 hr Normal 4-31 [facility] Comment on above: Performed By: #### O X24HR #### [facility] [address] [place] [address] [address] Li Nagel MAGNESIUM 24HR URINEon 07-09 Magnesium 24hr Urine 45.0 mg/24 hr Normal 12.0-293.0 T [facility] Comment on above: Performed By: #### I MMUN G #### [facility] [address] [place] [address] [address] Li Nagel Magnesium UR 4.5 mg/dL Normal Not Estab. [facility] Comment on above: Performed By: #### I MMUN G #### [facility] [address] [place] [address] Dr. Li Nagel PHOSPHORUS 24HR URINEon 06-22 Phosphorus, Urine 51.4 mg/dL Normal Not Estab. [facility] Comment on above: Performed By: #### P HOS 24 #### [facility] [address] [address] [address] Li Nagel Phosphorus, Urine 24hr 514 mg/24 hr Normal 261-1078 [facility] Comment on above: Performed By: #### P HOS 24 #### [facility] [address] [place] [address] Dr. Li Nagel URIC ACID 24 HR URINEon 06-22 Uric Acid, Urine 64.0 mg/dL Normal Not Estab. [facility] Comment on above: Performed By: #### A LPHPHN #### [facility] [address] [place] [address] Dr. Li Nagel Uric Acid, Urine 24hr 640.0 mg/24 hr Normal 173.7-902. 1 [facility] Comment on above: Performed By: #### A LPHPHN #### [facility] [address] [place] [address] Dr. Li Nagel CALCIUM 24 HR URINEon 2022 CALC, 24 HR UR 155.0 mg/24 hr Normal 100.0-300.0 [facility] Comment on above: Performed By: #### I MMUN G #### [facility] [address] [place] [address] Dr. Li Nagel UR CALCIUM 15.5 mg/dL Normal 5.1-21.0 [facility] Comment on above: Performed By: #### I MMUN G #### [facility] [address] [place] [address] Dr. Li Nagel UR TOT VOL 1000 ml/24 HR Normal [facility] Comment on above: Performed By: #### I MMUN G #### [facility] [address] [place] [address] Dr. Li Nagel Performed By: #### A LPHPHN #### [facility] [address] [place] [address] Dr. Li Nagel CREA 24 HR URINEon 3 CREA, 24 HR UR 1891.80 mg/24 hr Critically high 800.00 -1,800 .00 [facility] Comment on above: Performed By: #### A LPHPHN #### [facility] [address] [place] [address] Dr. Li Nagel URINE CREAT 189.18 mg/dL Normal 20.00-300.00 [facility] Comment on above: Performed By: #### A LPHPHN #### [facility] [address] [place] [address] Dr. Li Nagel PTH INTACTon 07-08-2022 PTH, Intact 41 pg/mL Normal 15-65 [facility] Comment on above: Performed By: #### H EPACUT #### [facility] [address] [place] [address] Dr. Li Nagel SODIUM 24 HR URINEon 2 023 NA, 24 HR UR 149 mmol/24 hr Normal 40-220 [facility] Comment on above: Performed By: #### A LPHPHN #### [facility] [address] [place] [address] Dr. Li Nagel Sodium (U) [Moles/Vol] 149 mmol/L Critically high 30-90 [facility] Comment on above: Performed By: #### A LPHPHN #### [facility] [address] [place] [address] Dr. Li Nagel BUNon 07-06-2022 Urea nitrogen [Mass/Vol] 11.0 mg/dL Normal 7.0-18.0 [facility] Comment on above: Performed By: #### B UN, URIC, CA, K, NA, CL, CO2, CREA #### [facility] [address] [place] [address] Dr. Li Nagel CALCIUMon 07-06-2022 Calcium [Mass/Vol] 9.0 mg/dL Normal 8.5-10.1 [facility] Comment on above: Performed By: #### B UN, URIC, CA, K, NA, CL, CO2, CREA #### [facility] [address] [place] [address] Dr. Li Nagel CHLORIDEon 07-06-2022 Chloride [Moles/Vol] 107 mmol/L Normal 98-107 [facility] Comment on above: Performed By: #### I MMUN G #### [facility] [address] [place] [address] Dr. Li Nagel CO2on 07-06-2022 CO2 [Moles/Vol] 29.2 mmol/L Normal 21.0-32.0 [facility] Comment on above: Performed By: #### I MMUN G #### [facility] [address] [place] [address] Dr. Li Nagel CREATININEon 07-06-2022 Creatinine [Mass/Vol] 0.97 mg/dL Normal 0.55-1.02 [facility] [facility] Comment on above: Performed By: #### B UN, URIC, CA, K, NA, CL, CO2, CREA #### [facility] [address] [place] [address] Dr. Li Nagel EGFR-AF MACANESE >60 Normal >=60 [facility] Comment on above: Performed By: #### B UN, URIC, CA, K, NA, CL, CO2, CREA #### [facility] [address] [place] [address] Dr. Li Nagel EGFR-NON AF MACANESE >60 Normal >=60 [facility] Comment on above: Performed By: #### B UN, URIC, CA, K, NA, CL, CO2, CREA #### [facility] [address] [place] [address] Dr. Li Nagel NAon 07-06-2022 Sodium [Moles/Vol] 143 mmol/L Normal 136-145 [facility] Comment on above: Performed By: #### I MMUN G #### [facility] [address] [place] [address] Dr. Li Nagel POTASSIUMon 07-06-2022 Potassium [Moles/Vol] 3.6 mmol/L Normal 3.5-5.1 [facility] Comment on above: Performed By: #### I MMUN G #### [facility] [address] [place], [place] [address] Dr. Li Nagel URIC ACID SERUMon 07-06-2022 Urate [Mass/Vol] 4.7 mg/dL Normal 2.6-6.0 [facility] Comment on above: Performed By: #### B UN, URIC, CA, K, NA, CL, CO2, CREA #### [facility] [address] [place], [place] [address] Dr. Li Nagel SURGICAL PATHOLOGYOrdered By : Karan Nieto on 07-04-2022 Case Report Surgical Pathology Report Case: [id number] Authorizing Provider: Grayson Peter MD Collected: 06/30/2022 11:43 AM Ordering Location: Ambulatory Surgery Received: 06/30/2022 10:42 PM Pathologist: Karan Nieto MD Specimens: A) - DUODENUM BIOPSY, r/o celiac B) - STOMACH BIOPSY, r/o H pylori [facility] Work Phone: Diagnosis Comment m4afqYVrWLKjeUQxJICv N OfrqmZuWJMmsQVcA1Bdwt lpGYouOU0fCI3wpYdptPF rjZZsVIDcVuVsx7dhk442 pWXhh2rdEGPKynmniKx9v XfjJ34wc5S8KjrdQ24nsT DxCBH0TMEfBZQqsNNpGEE eBSF2RBFjkQSaZ9voZNPo LV2bwijqDWrqGOflQBIvl UO8SLObrRUpH8PqJXTyNF qeDVSktrf7QuJvPd3zaEL yeTcyMFxwYXJkXHBsYWlu LKAqIvYzVG6fUA5bbiSsk 2VkIGludHJhZXBpdGhlbG zenJBcxR0bnI6ihUFpaml arU9ydKqmKUEwm5OaG4Dl b6FdcmfkfD77yuBuLq7vs z6ijDt8sXCvSEZbGIreXr Poq7PhldJecyEpr2RwN7l psPexfdV2pZVvJVWoyLos YyBkaXNlYXNlIGFuZCBvd DoqnxHrp97ccZXwm28jQI B6Q3ctTTGyiUSioPwlYKA fr6Sdl0GdNYcaKjFnsMrs fwRhiA7qfLBzqD8bURron Yngr2LdP0HodzFumMxsqs yonD9zDMG6oH2hHWtnWD9 kIHNvbWUgbWVkaWNhdGlv svAlZQXnqR7rU6JdPBMmd lElmTY2lB2cBVoluWbcDO Gvau7anynwfXKsg1Cbs5c bO3bqQFQ6cKGlRHMzpSAg JqHeZ94gv3wdMVRaKWCeA lEsaEfmeAQgeCn5GWwdCG kvTSYnKX3rhOLveM== [facility] Work Phone: FINAL DIAGNOSIS b9sgoNNtMLCvtGKqOPTg N QcmfgNdBAOmoOBlV9Vkbh saLIvuNL7oBB8xwAgzeZM zmNImWCHvJaVdt0eni251 vCZhv5spDZLCpyytxZp4e OncD17pj0Z8DgoeJ28cpL LpPSV5RZLuPXCxfQBpQBE iYIF2NTQylELzL5shRWOf IC5amvsmIEnyFRupSHGqr YX2RMJspQXvO8MjGNBaTW jzOBYcuhi4JtXvHq2bxSJ yeTcyMFxwYXJkXHBsYWlu WPKgFqNkTX0qPBHuSKKzj I2wJOVpx8PdlHddyWVzBG 4eJ98veOisuC71VFM7tJ4 mrGIthFZae1Fql3w0gJRt a2TpDIzbeuxutU17qcBbc zSvoLTbO1G5zjBjTE3iUK flT4MsMEWzFSUhauDiZEP waXRoZWxpYWwgbHltcGhv Y8i6YBI7GRWtWRNrl75qZ T25PgqpNLEblQEpYPJgCH U1m32kO2fxRLYoz1PkpMr faSSyZA4qP7QhiCHfJhOy aVqsiUdrQL05I12lPZX2o PEdOFJhjb1deTVzJMJ7aF KxOAcbdYatm2HwG0UmteY wkWjaxixeSWHda7XzHQYr USSmYWV8ucq0hIOqYSRjt n0= [facility] Work Phone: Gross Description g7oykCFhJDChlUBIQGHy M OGaLG2duFbguCy8aFwlHO VjopL8cHMkEFdqy0lbMOE 3m6awvnRVRgisEKFlYOnu WPLjnencCdW6YEqiWGDxy zbuXCz7XEagHHMbhOR1ZB XopJTcB5HaRNCiRC7bqqd 0ORL1WSezYTOfLjE0QZIg PdUgBhikWAx0RUIynfU9H lx7IFPnBDZmmRFzk5L4NW fdxavhTINeuTIyT602FUe vm9TmcXTkNTuehQLoRFRH MeocPacvgMvje0UwtMKaM GlkIDUxMDAwIFxcbmggXF s9XQFtPSmstBNyVZ9niZo sQummlTcfi6TzqCBrEEsr XAYrETWmJMkmQRCrKW6BF zPnQIF1Pzn8Fru9BdV3FL h1JWKILzYbPaKpMxgcQXE 2TECyRXd9WAj3MQiGVkT9 IFSyUVzcCYRjVLO8CXd6D FxcdCAyIFxcZiBBcmlhbC PxWVHqPKwajtL8QPHrBKi gYCNjVLQZT1GDTgYOHOWG H9MEWJrdCKDsNZxhDYEoL 85up0NSe3RdGE5QRBd2zv LxdsbtyT6kWYOryiXkJGj qeZWpI8ovEbZzTDKAXBSa tSFfUBBgezCdk6KeGXbgd iBhcmUgbXVsdGlwbGUgcG epG7AiUS6gBRLpagait05 ztKA9kFKjzPPpHIlrfdNt ILAvvpijrY6rWH22LEazL B3hAAdnKX1tZPUgInDHj4 MvnSp5RNP5Dr9atMUnUVQ hzwDeomSxX7Iaq9D4dXGz RXmsVDMaO84ra9UKp0EmP IWff7crbThmj5ZhhIAvQB knPSJkvPLhEMviqU4cZpY bl2kquQw8XOjpwsF7RDLs kl8qcInswP3yOCu6BJgyP ELuB3OzB0TbHAsbCJZ1OR AwMiBcXGRiICBPVlIgIiA vAgY1KAD4YKPkNVn3IGcf F4HMWGGqCCI1IMk7BLh6K uZ5HGf1MRUXSu5aYVqpMw o2LPZaTFS0KUg7XWXpATF gMiBcXGYgQXJpYWwgXFxm wHUuLC7sfGiheSYscfhpn uO2BMLcUWrsKCDuAAFRX5 2DP7zpLihTHIAFKVDelhF NClxlcGljTmVzdERvYzEg DQpcbHRycGFyXGxpbjBcc mluMCANClxsdHJjaFxmcz RcJMThP9GfyzIrPZmkAQS zvq7clGziVGQvSMG0c40n eWivI4PzXS7gIHSisvjxl 15qbXY2wKDdbLXrKGdvuo MkHANseiyarK2tDM7wYYa bED1bFOtaPQ5hUCXiOyTS x8TouUb9BZK4Ly5pdCDuG JNtgmUnhfDxH8Eor5Y7hF UuIFxwYXIgDQpccGFyIA0 EA1Cft9GgZKjphKbrXPIg v30yvULuFo7ddKQuCMO7S ENsZXZlbGFuZCBDbGluaW PpYEr4MXSgZUYlrAvjPGK 9DS8xRSPyHRHosUFaWRoa C5urJJRdMHRnyPIqJJ9ME HBhciANCkpUIDAzLzEwLz VtRcAfQOm6GeKGXZjnLMK vQYfuJFDfG27hz2MBg3Yg AYArx9qexXgka8BxzSUcG JczOGPvoEPuZQipvU3aZc Gpx0lkuAz1TZogkzF6GFN mwc9skYhfsE1tLRpig4mp UHI2PIFmeSSugQVzUHhck RvqkG2qHeWdYcg5SJpnER GtK0BzA2GbszH9QAUbCAc uXGZzMTYgDQp9 [facility] Work Phone: Performing Lab i3fzoGPvFQKmjVNyRqXz M CQvZHChm2qcWXVzoGVgOc EwMzNcZnRuYmpcdWMxXGR uUaIln4pxd456vSZqo9eb ZGXgAiH4cSArRXEvkXSaH 142YRQbJWpsm6wkr0SaFJ MltOHjc2M5XVOOpyzspAu 1pRbyQ53rc0M5VmrmY1eu DJVlDCOhM9WrIZ7tHNKlE cf6FTP5HAJ0CYRgENHnM4 NuLG2uMKQkwEXkZFx0v1u nhMasRYAdLWB7k1peLKam crQqDT5ypv3tfCs9l8xvn zEgRGVmYXVsdCBQYXJhZ3 VlrMssXe3zsSp4ySrzNnv qKRQ2Jsr9XN3wdb47aak6 nSwuNOFydlibRuE0MGtcQ ONhlhpzBFv2ZUewGTEswP M1RCPwlXHaN4ReKPfrAS0 sbnj5WSD0JTyvMEGcLvH7 NDBcaGVhZGVyeTcyMFxmb 078DER0JbRfKO5sC1Mrz1 Q1vI4qiFFwGEDyuPYvHsZ rLRZeon0mwVKvAFzbm2Ic NPR7ntF0oRJsiDVwHNAvW Q65Qddww3XqSkzhi3KbR4 4bpWM5IUtpr5kbVQ7aMnY 9ibYdVXdrl7kmtF1hAnM2 INdxND9sOG6jHCRraM2tm mxjXHBnYnJkcmhlYWRccG aifwUvXn0nqAjnFUV6WRz wU4mmsN0aUlZ6GZqzQ9vp sM2hWPk7QFjuxLQ9QHMub C2cQM4ydufcy2juNDufIE xsXGJwfkZ4deGgAQEcuMN wA1QcuK2lYVEtRP7wbcii r8qeMNW6VBqhHNFiVCS8L vTnMCDqj2Uqony3NmMet9 IikRBfNZfxU08ny898EHU jriZnE7ejxDLbiksbnHNe vxkrAHgukyQ4SCOsUYUbE WluXGYxXGZzMjJcbGFuZz EwMzNcaGljaFxmMVxkYmN rYBIaMDezC9zdKvJrVmMl CpQLqHDblz7csAndDFsec KVtsRNzkKJ1kW6eIVIckg Ruca2hCWLvdYOPrGX4NGl tmcMhO5izsnweQGB1PWPf PCV0J5khLYSEalRvHBYtE DDieQFkNCWRSQD4EHU2KW UaSWBGNNAjCYA7LMG6XJL wOTRccGFyXHBhclxwYXJk XHBsYWluXGYwXGZzMjRcc SxknW6tXkMgRrYqKptqWQ 3iDPMqQ4lneCLtUSLyTMX vK7fiMhNslW6caKfrTEyq ZjJcZnMyMlxsdHJjaCBMY HClaxD4l3U4AHsmaFYxcz xmMVxmczIyXGxhbmcxMDM iBPziU7qzDsPdKYPgnPug APkgc6StEQCoHUXsJtPoI TacFPJ6d7I4OQlkmNWtws WRKbGBVB1iwANdwlhbND1 ELlxwYXJ9 [facility] Work Phone: [facility] Work Phone: EGD Study observation Narrat napoleon 06-30-2022 [facility] Gastroenterology Gastrointestinal Endoscopy Patient Name: Orion Harper Procedure Date: 06/30/2022 11:41 AM Date of : 1990 Admit Type: Outpatient Age: 31 Room: [place] [address] Gender: Female Note Status: Finalized Attending MD: Grayson Peter MD Procedure: Upper GI endoscopy Indications: Dyspepsia, Nausea with vomiting Providers: Grayson Peter MD Patient Profile: This is a 31 year old female. Refer to note in patient chart for documentation of history and physical. Referring Physician: Grayson Peter MD (Referring MD), Giovani Hagen MD (Referring [...] verified by the physician, the nurse, the film laboratory technician and the transmission technician in the procedure room at 11:35 [...] gastric ulcers (more content not included)... [employer] [facility] Radiology Study observation (narrative) [facility] XR KUB 1 VIEWon 06-30-2022 XR KUB [...] JACKSON ADKINS Date: 2022-06-30 07:02 Normal [facility] US ABD RT UPPER QUADRANTon 0 06-15-2022 [facility] CT ABD/PEL WO IVCONon 2022 Radiology Result ACTIONABLE Abnormal [facility] No Panel Informationon 05-27 [facility] RVRNY-5-QCYCKTINQJR PHENOTYP INGon 05-11-2022 Ncadm-7-Wjoggrzzagv, Serum 130 mg/dL Normal 100-188 [facility] Comment on above: Result Comment: Perf ormed at: CB Performed By: #### A LPHPHN #### [facility] [address] [place] [address] Dr. Li Nagel Phenotype (PI) MM Normal [facility] Comment on above: Result Comment: [...] BN Performed By: #### A LPHN #### [facility] [address] [place] [address] Dr. Li Nagel HEREDITARY HEMOCHROMATOSIS, DNA ANALYSISon 05-11-2022 Hereditary Hemochromatosis Comment Normal [facility] Comment on above: Result Comment: Resu lt: c.845G>A (p.Ujb126Yxp) - Not Detected c.187C>G (p.Prf01Hlp) - Not Detected c.193A>T (p.Sdb09Jwk) - Not Detected Not associated with increased [...] for patients who are homozygous for c.845G>A (p.Vzo030Tsy) and have yet to experience clinical symptoms. . Comments: The most common HFE variants associated with hereditary hemochromatosis are c.845G>A (p.Krz278Jgj), c.187C>G (p.Oix45Nvx), c.193A>T (p.Aht60Qnt). While patients homozygous for c.845G>A (p.Nlg791Xfk) are the most likely to present clinical symptoms, less than 10% develop clinically significant iron overload with tissue and organ damage. . Genetic counseling is recommended to discuss the potential clinical implications of positive results, as well as recommendations for testing family members. Genetic Coordinators are available for health care providers to discuss results at [phone]). . Test Details: Three variants analyzed: c.845G>A (p.Jqc172Gse), commonly referred to as C282Y c.187C>G (p.Mhc55Rkw), commonly referred to as H63D c.193A>T (p.Spm79Bhb), commonly referred to as S65C . Methods/Limitations: [...] developed and its performance characteristics determined by [employer]. It has not been cleared or approved by the Food and Drug Administration. . References: Brodie BR, Yoav PC, Deborah KV, Raymond LW, Ramsey ; [place] [employer]. Diagnosis and management of hemochromatosis: 2011 practice guideline by the [place]. Hepatology. 2010;54(1):328-43. doi: 10.1002/hep.72089. PMID: 21137008; PMCID: OZI6366734. Cora G, Olegario P, Fabio DW, Tabatha H, Love O, Zev S, Vazquez I, Kofi M, Sunitha S. [facility] best practice guidelines for the molecular genetic diagnosis of hereditary hemochromatosis (HH). Eur J Hum Margaret. 2016 Jul;24(4):479-95. doi: 10.1038/ejhg.2015.128. Epub 2014Oct 29. PMID: 54538897; PMCID: [id number]. . Anitra Hager, PhD, FACMG Dm Reyna, PhD Alexandro Rodriguez, PhD, FACMG Jhony Hammond, PhD, FACMG Oumar Avila, PhD, FAC Rob Brand, PhD, FAC Pascale Gracia, PhD, FAC Lala Marvin, PhD, FAC Performed By: #### H EPACUT #### [facility] [address] [place] [address] Dr. Li Nagel DENY by IFAon 05-06-2022 Antinuclear Antibodies, IFA Negative Normal [facility] Comment on above: Result Comment: Nega tive <1:80 Borderline 1:80 Positive >1:80 ICAP nomenclature: AC-0 For more information about Hep-2 cell patterns use ANApatterns.org, the official website for the International Consensus on Antinuclear Antibody (DENY) Patterns (ICAP). Performed By: #### A LPHPHN #### [facility] [address] [place] [address] [address] Li Nagel CERULOPLASMINon 05-05-2022 Ceruloplasmin 27.9 mg/dL Normal 19.0-39.0 [facility] Comment on above: Performed By: #### H EPACUT #### [facility] [address] [place] [address] [address] Li Nagel HEPATITIS A AB IGMon 023 Hep A Ab, IgM Negative Normal Negative [facility] Comment on above: Performed By: #### I MMUN G #### [facility] [address] [place] [address] [address] Li Nagel IMMUNOGLOBULIN G INDEX SERUM OR CSFon 05-05-2022 Albumin [Mass/Vol] 4.8 g/dL Normal 3.8-4.8 [facility] Comment on above: Performed By: #### I MMUN G #### [facility] [address] [place] [address] Dr. Li Nagel Albumin, CSF NSPINL Normal [facility] Comment on above: Result Comment: Test not performed. No spinal fluid received. contacted Radha at your facility on 05-05-2022 Performed By: #### I MMUN G #### [facility] [address] [place] [address] Dr. Li Nagel CSF IgG Index UPTCAL Normal [facility] Comment on above: Result Comment: Unab le to calculate result since non-numeric result obtained for component test. Performed By: #### I MMUN G #### [facility] [address] [place] [address] Dr. Li Nagel IgG, Quant, CSF NSPINL Normal [facility] Comment on above: Result Comment: Test not performed. No spinal fluid received. contacted Radha at your facility on 05-05-2022 Performed By: #### I MMUN G #### [facility] [address] [place] [address] [address] Li Nagel IgG/Alb Ratio, CSF UPTCAL Normal [facility] Comment on above: Result Comment: Unab le to calculate result since non-numeric result obtained for component test. Performed By: #### I MMUN G #### [facility] [address] [place] [address] Dr. Li Nagel Immunoglobulin G, Qn, Serum 971 mg/dL Normal 586-1602 [facility] Comment on above: Performed By: #### I MMUN G #### [facility] [address] [place] [address] Dr. Li Nagel LIVER-KIDNEY MICROSOMAL (LKM ) ABon 05-05-2022 Liver-Kidney Microsomal Ab 1.3 Units Normal 0.0-20.0 [facility] Comment on above: Result Comment: Nega tive 0.0 - 20.0 Equivocal 20.1 - 24.9 Positive >24.9 . LKM type 1 antibodies are detected in patients with autoimmune hepatitis type 2 and in up to 8% of patients with chronic HCV infection. Performed By: #### H EPACUT #### [facility] [address] [place] [address] Dr. Li Nagel MITICHONDRIAL (M2) ANTIBODYo n 05-05-2022 Mitochondrial (M2) Antibody <20.0 Normal 0.0-20.0 [facility] Comment on above: Result Comment: Nega tive 0.0 - 20.0 Equivocal 20.1 - 24.9 Positive >24.9 . Mitochondrial (M2) Antibodies are found in 90-96% of patients with primary biliary cirrhosis. Performed By: #### A LPHPHN #### [facility] [address] [place] [address] Dr. Li Nagel SMOOTH MUSCLE ANTIBODYon Actin (Smooth Muscle) Antibody 9 Units Normal 0-19 [facility] Comment on above: Result Comment: Nega tive 0 - 19 Weak positive 20 - 30 Moderate to strong positive >30 . Actin Antibodies are found in 52-85% of patients with autoimmune hepatitis or chronic active hepatitis and in 22% of patients with primary biliary cirrhosis. Performed By: #### A LPHPHN #### [facility] [address] [place] [address] Dr. Li Nagel FERRITINon 05-03-2022 Ferritin [Mass/Vol] 319.0 ng/mL Critically high 6.2-137.0 [facility] Comment on above: Performed By: #### A LPHPHN #### [facility] [address] [place] [address] Dr. Li Nagel PAP ACOG PANEL 2: 30 to 65on 04-28-2022 . . Normal [facility] Comment on above: Result Comment: Perf ormed at: BA Performed By: #### I MMUN G #### [facility] [address] [place] [address] [address] Li Nagel Age Gdln ACOG Testing 30-65 Normal [facility] Comment on above: Performed By: #### I MMUN G #### [facility] [address] [place] [address] [address] Li Nagel DIAGNOSIS: Comment Normal [facility] Comment on above: Result Comment: NEGA TIVE FOR INTRAEPITHELIAL LESION OR MALIGNANCY. Performed at: BA Performed By: #### I MMUN G #### [facility] [address] [address] [address] Li Nagel HPV Aptima Negative Normal Negative [facility] Comment on above: Result Comment: This nucleic acid amplification test detects fourteen high-risk HPV types (16,18,31,33,35,39,45,51,52,56,58,59,66,68) without differentiation. Performed at: =G Performed By: #### I MMUN G #### [facility] [address] [address] [address] Li Nagel HPV Genotype Reflex Comment Normal [facility] Comment on above: Result Comment: Crit eria not met, HPV Genotype not performed. Performed at: BA Performed By: #### I MMUN G #### [facility] [address] [address] [address] Li Nagel Methodology: Comment Normal [facility] Comment on above: Result Comment: This liquid based ThinPrep(R) pap test was screened with the use of an image guided system. Performed at: WB Performed By: #### I MMUN G #### [facility] [address] [address] [address] Li Nagel Note: Comment Normal [facility] Comment on above: Result Comment: The Pap [...] #### I MMUN G #### [facility] [address] [address] [address] Li Nagel Performed by: Comment Normal [facility] Comment on above: Result Comment: Gretta Holly, Spanish Moss Picker (ASCP) Performed at: BA Performed By: #### I MMUN G #### [facility] [address] [address] [address] Li Nagel Specimen adequacy: Comment Normal [facility] Comment on above: Result Comment: Sati sfactory for evaluation. No endocervical component is identified. Performed at: BA Performed By: #### I MMUN G #### [facility] [address] [place] [address] Dr. Li Nagel HEPATITIS PANEL, [facility] HBsAg Screen Negative Normal Negative [facility] Comment on above: Performed By: #### H EPACUT #### [facility] [address] [place] [address] Dr. Li Nagel HCV AB <0.1 Normal 0.0-0.9 [facility] Comment on above: Performed By: #### H EPACUT #### [facility] [address] [place] [address] Dr. Li Nagel Hep A Ab, IgM Negative Normal Negative [facility] Comment on above: Performed By: #### H EPACUT #### [facility] [address] [address] [address] Li Nagel Hep B Core Ab, IgM Negative Normal Negative [facility] Comment on above: Performed By: #### H EPACUT #### [facility] [address] [address] [address] Li Nagel Interpretation: Comment Normal [facility] Comment on above: Result Comment: Nega tive Not infected with HCV, unless recent infection is suspected or other evidence exists to indicate HCV infection. Performed By: #### H EPACUT #### [facility] [address] [address] [address] Li Nagel US PELVIS AND TRANSVAGon [...] Date: 2021-12-22 09:50 Normal [facility] US ABD RT UPPER QUADRANTon 0 12-10-2021 [facility] US PELVIS AND TRANSVAGon US [...] clearing is recommended. Electronically authenticated by: LAURIE ANTHONY Date: 2021-10-28 13:01 Normal [facility] VAGINITIS/VAGINOSIS DNA PROB Maki 10-21-2021 Sarah species Negative Normal Negative [facility] Comment on above: Performed By: #### I MMUN G #### [facility] [address] [place] [address] Dr. Li Nagel Gardnerella vaginalis Negative Normal Negative [facility] Comment on above: Performed By: #### I MMUN G #### [facility] [address] [place] [address] Dr. Li Nagel Trichomonas vaginalis Negative Normal Negative [facility] Comment on above: Performed By: #### I MMUN G #### [facility] [address] [place] [address] Dr. Li Nagel CBC AUTO DIFFon 10-20-2021 BASO # 0.0 103/ul Normal 0.0-0.1 [facility] Comment on above: Performed By: #### A LPHPHN #### [facility] [address] [place] [address] Dr. Li Nagel Basophils/100 WBC (Bld) 0.4 % Normal 0.2-2.0 [facility] Comment on above: Performed By: #### A LPHPHN #### [facility] [address] [place] [address] Dr. Li Nagel EO # 0.2 103/ul Normal 0.0-0.7 [facility] Comment on above: Performed By: #### A LPHPHN #### [facility] [address] [place] [address] Dr. Li Nagel Eosinophils/100 WBC (Bld) 2.6 % Normal 0.9-7.0 [facility] Comment on above: Performed By: #### A LPHPHN #### [facility] [address] [place] [address] Dr. Li Nagel Erythrocyte distribution width (RBC) [Ratio] 12.6 % Normal 11.0-15.0 [facility] Comment on above: Performed By: #### A LPHPHN #### [facility] [address] [place] [address] Dr. Li Nagel Hematocrit (Bld) [Volume fraction] 40.0 % Normal 36.0-48.0 [facility] Comment on above: Performed By: #### A LPHPHN #### [facility] [address] [place] [address] Dr. Li Nagel Hemoglobin (Bld) [Mass/Vol] 13.3 g/dL Normal 12.0-16.0 [facility] Comment on above: Performed By: #### A LPHPHN #### [facility] [address] [place] [address] Dr. Li Nagel IG # 0.06 10e3/ul Critically high 0.00-0.03 [facility] Comment on above: Performed By: #### A LPHPHN #### [facility] [address] [place] [address] Dr. Li Nagel IG % 0.9 % Critically high 0.0-0.5 [facility] Comment on above: Performed By: #### A LPHPHN #### [facility] [address] [place] [address] Dr. Li Nagel LYMPH # 2.2 103/ul Normal 1.2-3.8 [facility] Comment on above: Performed By: #### A LPHPHN #### [facility] [address] [place] [address] Dr. Li Nagel Lymphocytes/100 WBC (Bld) 31.0 % Normal 20.5-60.0 [facility] Comment on above: Performed By: #### A LPHPHN #### [facility] [address] [place] [address] Dr. Li Nagel MANUAL DIFF REQ NO Normal [facility] Comment on above: Performed By: #### A LPHPHN #### [facility] [address] [place] [address] Dr. Li Nagel MCH (RBC) [Entitic mass] 31.4 pg Normal 26.7-34.0 [facility] Comment on above: Performed By: #### A LPHPHN #### [facility] [address] [place] [address] Dr. Li Nagel MCHC (RBC) [Mass/Vol] 33.3 g/dL Normal 29.9-35.2 [facility] Comment on above: Performed By: #### A LPHPHN #### [facility] [address] [place] [address] Dr. Li Nagel MCV (RBC) [Entitic vol] 94.3 fL Normal 81.0-99.0 [facility] Comment on above: Performed By: #### A LPHPHN #### [facility] [address] [place] [address] Dr. Li Nagel MONO # 0.5 103/ul Normal 0.3-0.8 [facility] Comment on above: Performed By: #### A LPHPHN #### [facility] [facility] [address] [place] [address] Dr. Li Nagel Monocytes/100 WBC (Bld) 6.9 % Normal 1.7-12.0 [facility] Comment on above: Performed By: #### A LPHPHN #### [facility] [address] [place] [address] Dr. Li Nagel NEUT # 4.1 103/ul Normal 1.4-6.5 [facility] Comment on above: Performed By: #### A LPHPHN #### [facility] [address] [place] [address] Dr. Li Nagel Neutrophils/100 WBC (Bld) 58.2 % Normal 43.0-75.0 [facility] Comment on above: Performed By: #### A LPHPHN #### [facility] [address] [place] [address] Dr. Li Nagel Platelet mean volume (Bld) [Entitic vol] 11.0 fL Normal 9.5-13.5 [facility] Comment on above: Performed By: #### A LPHPHN #### [facility] [address] [place] [address] Dr. Li Nagel PLT 211 103/ul Normal 150-450 [facility] Comment on above: Performed By: #### A LPHPHN #### [facility] [address] [place], [place] [address] Dr. Li Nagel RBC 4.24 106/ul Normal 4.20-5.40 [facility] Comment on above: Performed By: #### A LPHPHN #### [facility] [address] [place], [place] [address] Dr. Li Nagel WBC 7.0 103/ul Normal 4.0-11.0 [facility] Comment on above: Performed By: #### A LPHPHN #### [facility] [address] [place], [place] [address] ABD/PELV W CONon [...] Date: 2021-10-20 14:53 Normal [facility] OCC BLD IMMUNO SCREENon 09-23 OCCULT BLOOD Negative Normal NEGATIVE [facility] Comment on above: Performed By: #### O BSCRN #### [facility] [address] [address] [address] Li Nagel PROF 14(COMP METB)on 022 Albumin [Mass/Vol] 3.7 g/dL Normal 3.4-5.0 [facility] Comment on above: Performed By: #### A LPHPHN #### [facility] [address] [address] [address] Li Nagel Albumin/Globulin [Mass ratio] 1.2 {ratio} Normal [facility] Comment on above: Performed By: #### A LPHPHN #### [facility] [address] [place] [address] Dr. Li Nagel ALP [Catalytic activity/Vol] 86 U/L Normal 46-116 [facility] Comment on above: Performed By: #### A LPHPHN #### [facility] [address] [place] [address] Dr. Li Nagel ALT [Catalytic activity/Vol] 109 U/L Critically high 14-59 [facility] Comment on above: Performed By: #### A LPHPHN #### [facility] [address] [address] [address] Li Nagel Anion gap [Moles/Vol] 7.8 mmol/L Normal [facility] Comment on above: Performed By: #### A LPHPHN #### [facility] [address] [address] [address] Li Nagel AST [Catalytic activity/Vol] 57 U/L Critically high 15-37 [facility] Comment on above: Performed By: #### A LPHPHN #### [facility] [address] [address] [address] Li Nagel Bilirubin [Mass/Vol] 0.4 mg/dL Normal 0.2-1.0 [facility] Comment on above: Performed By: #### A LPHPHN #### [facility] [address] [place] [address] Dr. Li Nagel Calcium [Mass/Vol] 8.9 mg/dL Normal 8.5-10.1 [facility] Comment on above: Performed By: #### A LPHPHN #### [facility] [address] [address] [address] Li Nagel Chloride [Moles/Vol] 104 mmol/L Normal 98-107 [facility] Comment on above: Performed By: #### A LPHPHN #### [facility] [address] [address] [address] Li Nagel CO2 [Moles/Vol] 27.7 mmol/L Normal 21.0-32.0 [facility] Comment on above: Performed By: #### A LPHPHN #### [facility] [address] [address] [address] Li Nagel Creatinine [Mass/Vol] 0.78 mg/dL Normal 0.55-1.02 [facility] Comment on above: Performed By: #### A LPHPHN #### [facility] [address] [place] [address] Dr. Li Nagel EGFR-AF MACANESE >60 Normal >=60 [facility] Comment on above: Performed By: #### A LPHPHN #### [facility] [address] [place] [address] Dr. Li Nagel EGFR-NON AF MACANESE >60 Normal >=60 [facility] Comment on above: Performed By: #### A LPHPHN #### [facility] [address] [address] [address] Li Nagel Globulin (S) [Mass/Vol] 3.2 g/dL Normal [facility] Comment on above: Performed By: #### A LPHPHN #### [facility] [address] [place] [address] Dr. Li Nagel Glucose [Mass/Vol] 104 mg/dL Normal 74-106 [facility] Comment on above: Performed By: #### A LPHPHN #### [facility] [address] [place] [address] Dr. Li Nagel Potassium [Moles/Vol] 3.5 mmol/L Normal 3.5-5.1 [facility] Comment on above: Performed By: #### A LPHPHN #### [facility] [address] [address] [address] Li Nagel Protein [Mass/Vol] 6.9 g/dL Normal 6.4-8.2 [facility] Comment on above: Performed By: #### A LPHPHN #### [facility] [address] [address] [address] Li Nagel Sodium [Moles/Vol] 136 mmol/L Normal 136-145 [facility] Comment on above: Performed By: #### A LPHPHN #### [facility] [address] [address] [address] Li Nagel Urea nitrogen [Mass/Vol] 10.0 mg/dL Normal 7.0-18.0 [facility] Comment on above: Performed By: #### A LPHPHN #### [facility] [address] [address] [address] Li Nagel Urea nitrogen/Creatinine [Mass ratio] 12.8 mg/mg Normal [facility] Comment on above: Performed By: #### A LPHPHN #### [facility] [address] [address] [address] Li Nagel XR LSPINE MIN 4 [...] CRUZ Date: 2021-09-06 15:05 Normal [facility] NM HEPATOBILIARY SCAN W EFon 08-27-2021 NM [...] JACKSON ADKINS Date: 2021-08-27 16:05 Normal [facility] Metabolic Pane yair 08-20-2021 Albumin [Mass/Vol] 5.0 g/dL Normal 3.6-5.1 [facility] Comment on above: Performed By: #### C MP #### [facility] [address], [place] [id number] Albumin/Globulin [Mass ratio] 2.1 {ratio} Normal 1.0-2.5 [facility] Comment on above: Performed By: #### C MP #### [facility] [address], [place] [id number] ALP [Catalytic activity/Vol] 110 U/L Normal 35-119 [facility] Comment on above: Performed By: #### C MP #### [facility] [address], [place] [id number] ALT [Catalytic activity/Vol] 71 U/L High 6-33 [facility] Comment on above: Result Comment: 03/24 Female reference range changed. Performed By: #### C MP #### [facility] [address], [place] [id number] Anion gap [Moles/Vol] 17 mmol/L Normal 12-20 [facility] Comment on above: Result Comment: Effe ctive 04/29/2019 reference range changed. Performed By: #### C MP #### [facility] [address], [place] [id number] AST [Catalytic activity/Vol] 69 U/L High 9-34 [facility] Comment on above: Performed By: #### C MP #### [facility] [address], [place] [id number] BUN/CREA 11 Ratio Normal 6-22 [facility] Comment on above: Performed By: #### C MP #### [facility] [address], [place] [id number] Calcium [Mass/Vol] 9.8 mg/dL Normal 8.6-10.2 [facility] [employer] Comment on above: Performed By: #### C MP #### [facility] [address], [place] [id number] Chloride [Moles/Vol] 99 mmol/L Normal 98-107 [facility] Comment on above: Performed By: #### C MP #### [facility] [address], [place] [id number] CO2 [Moles/Vol] 25 mmol/L Normal 20-31 [facility] Comment on above: Performed By: #### C MP #### [facility] [address], [place] [id number] Creatinine [Mass/Vol] 0.9 mg/dL Normal 0.6-1.4 [facility] Comment on above: Performed By: #### C MP #### [facility] [address], [place] [id number] eGFRAA 94 mL/min/1.73m2 Normal >60 [facility] Comment on above: Performed By: #### C MP #### [facility] [address], [place] [id number] eGFRNAA 78 mL/min/1.73m2 Normal >60 [facility] Comment on above: Performed By: #### C MP #### [facility] [address], [place] [id number] Globulin (S) [Mass/Vol] 2.4 g/dL Normal 1.9-3.7 [facility] Comment on above: Performed By: #### C MP #### [facility] [address], [place] [id number] Glucose [Mass/Vol] 100 mg/dL High 65-99 [place] [facility] [employer] Comment on above: Result Comment: For FASTING Glucose --- ADA reference ranges: Normal 65-99 mg/dl Prediabetes 100-125 Diabetes >/= 126 Performed By: #### C MP #### [facility] [address], [place] [id number] Potassium [Moles/Vol] 3.8 mmol/L Normal 3.5-5.5 [facility] Comment on above: Performed By: #### C MP #### [facility] [address], [place] [id number] Protein [Mass/Vol] 7.4 g/dL Normal 6.1-8.1 [place] [facility] Comment on above: Performed By: #### C MP #### [facility] [address], [place] [id number] Sodium [Moles/Vol] 137 mmol/L Normal 135-146 [facility] Comment on above: Performed By: #### C MP #### [facility] [address], [place] [id number] TBIL <0.3 Normal [facility] Comment on above: Performed By: #### C MP #### [facility] [address], [place] [id number] Urea nitrogen [Mass/Vol] 10 mg/dL Normal 7-25 [facility] Comment on above: Performed By: #### C MP #### [facility] [address], [place] [id number] US SINGLE QUAD RT UPPERon US SINGLE [...] JACKSON ADKINS Date: 2021-08-16 08:19 Normal [facility] Complete Blood Count with Au to Diffon 08-06-2021 Basophils (Bld) [#/Vol] 0.03 10*3/uL Normal 0.00-0.20 [facility] [employer] Comment on above: Performed By: #### C MP, CBCAD, LIPD #### [facility] [address], [place] [id number] Basophils/100 WBC (Bld) 0.4 % Normal [facility] [employer] Comment on above: Performed By: #### C MP, CBCAD, LIPD #### [facility] [address], [place] [id number] Eosinophils (Bld) [#/Vol] 0.11 10*3/uL Normal 0.02-0.50 [facility] [employer] Comment on above: Performed By: #### C MP, CBCAD, LIPD #### [facility] [address], [place] [id number] Eosinophils/100 WBC (Bld) 1.4 % Normal [facility] [employer] Comment on above: Performed By: #### C MP, CBCAD, LIPD #### [facility] [address], [place] [id number] Erythrocyte distribution width (RBC) [Ratio] 12.6 % Normal 11.0-15.0 [facility] Comment on above: Performed By: #### C MP, CBCAD, LIPD #### [facility] [address], [place] [id number] Hematocrit (Bld) [Volume fraction] 44.2 % Normal 35.0-47.0 [facility] [employer] Comment on above: Performed By: #### C MP, CBCAD, LIPD #### [facility] [address], [place] [id number] Hemoglobin (Bld) [Mass/Vol] 14.8 g/dL Normal 11.6-15.5 [facility] Comment on above: Performed By: #### C MP, CBCAD, LIPD #### [facility] [address], [place] [id number] Lymphocytes (Bld) [#/Vol] 2.2 10*3/uL Normal 0.9-3.9 [facility] Comment on above: Performed By: #### C MP, CBCAD, LIPD #### [facility] [address], [place] [id number] Lymphocytes/100 WBC (Bld) 28.1 % Normal [facility] Comment on above: Performed By: #### C MP, CBCAD, LIPD #### [facility] [address], [place] [id number] MCH (RBC) [Entitic mass] 31.2 pg Normal 27.0-33.0 [facility] Comment on above: Performed By: #### C MP, CBCAD, LIPD #### [facility] [address], [place] [id number] MCHC (RBC) [Mass/Vol] 33.5 g/dL Normal 32.0-36.0 [facility] Comment on above: Performed By: #### C MP, CBCAD, LIPD #### [facility] [address], [place] [id number] MCV (RBC) [Entitic vol] 93 fL Normal 80-100 [facility] Comment on above: Performed By: #### C MP, CBCAD, LIPD #### [facility] [address], [place] [id number] Monocytes (Bld) [#/Vol] 0.4 10*3/uL Normal 0.2-0.9 [facility] Comment on above: Performed By: #### C MP, CBCAD, LIPD #### [facility] [address], [place] [id number] Monocytes/100 WBC (Bld) 4.8 % Normal [facility] Comment on above: Performed By: #### C MP, CBCAD, LIPD #### [facility] [address], [place] [id number] Neutrophils (Bld) [#/Vol] 5.1 10*3/uL Normal 1.5-7.8 [facility] Comment on above: Performed By: #### C MP, CBCAD, LIPD #### [facility] [address], [place] [id number] Neutrophils/100 WBC (Bld) 64.3 % Normal [facility] Comment on above: Performed By: #### C MP, CBCAD, LIPD #### [facility] [address], [place] [id number] Platelet mean volume (Bld) [Entitic vol] 11.00 fL Normal 7.50-12.[address] [facility] Comment on above: Performed By: #### C MP, CBCAD, LIPD #### [facility] [address], [place] [id number] Platelets (Bld) [#/Vol] 296 10*3/uL Normal 140-400 [facility] Comment on above: Performed By: #### C MP, CBCAD, LIPD #### [facility] [address], [place] [id number] RBC (Bld) [#/Vol] 4.74 10*6/uL Normal 3.90-5.20 [facility] [employer] Comment on above: Performed By: #### C MP, CBCAD, LIPD #### [facility] [address], [place] [id number] RDW-SD 43.4 fL Normal 37.0-50.0 [facility] Comment on above: Performed By: #### C MP, CBCAD, LIPD #### [facility] [address], [place] [id number] WBC (Bld) [#/Vol] 8.0 10*3/uL Normal 3.8-11.0 [facility] [employer] Comment on above: Performed By: #### C MP, CBCAD, LIPD #### [facility] [address], [place] [id number] Comprehensive Metabolic Pane yair 08-06-2021 Albumin [Mass/Vol] 5.2 g/dL High 3.6-5.1 [facility] [place] [employer] Comment on above: Performed By: #### C MP, CBCAD, LIPD #### [facility] [address] [place], [place] [id number] Albumin/Globulin [Mass ratio] 2.1 {ratio} Normal 1.0-2.5 [facility] Comment on above: Performed By: #### C MP, CBCAD, LIPD #### [facility] [address] [place], [place] [id number] ALP [Catalytic activity/Vol] 115 U/L Normal 35-119 [facility] Comment on above: Performed By: #### C MP, CBCAD, LIPD #### [facility] [address] [place], [place] [id number] ALT [Catalytic activity/Vol] 101 U/L High 6-33 [facility] Comment on above: Result Comment: 03/24 Female reference range changed. Performed By: #### C MP, CBCAD, LIPD #### [facility] [address] [facility] [place] [id number] Anion gap [Moles/Vol] 20 mmol/L Normal 12-20 [facility] Comment on above: Result Comment: Effe ctive 04/29/2019 reference range changed. Performed By: #### C MP, CBCAD, LIPD #### [facility] [address] [facility] [place] [id number] AST [Catalytic activity/Vol] 96 U/L High 9-34 [facility] Comment on above: Performed By: #### C MP, CBCAD, LIPD #### [facility] [address] [facility] [place] [id number] BUN/CREA 9 Ratio Normal 6-22 [facility] Comment on above: Performed By: #### C MP, CBCAD, LIPD #### [facility] [address] [place], [place] [id number] Calcium [Mass/Vol] 9.9 mg/dL Normal 8.6-10.2 [facility] Comment on above: Performed By: #### C MP, CBCAD, LIPD #### [facility] [address] [place], [place] [id number] Chloride [Moles/Vol] 106 mmol/L Normal 98-107 [place] [employer] Comment on above: Performed By: #### C MP, CBCAD, LIPD #### [facility] [address] [place] [id number] CO2 [Moles/Vol] 21 mmol/L Normal 20-31 [facility] Comment on above: Performed By: #### C MP, CBCAD, LIPD #### [facility] [address] [place], [place] [id number] Creatinine [Mass/Vol] 0.9 mg/dL Normal 0.6-1.4 [facility] Comment on above: Performed By: #### C MP, CBCAD, LIPD #### [facility] [address] [id number] eGFRAA 90 mL/min/1.73m2 Normal >60 [facility] Comment on above: Performed By: #### C MP, CBCAD, LIPD #### [facility] [address] [place] [id number] eGFRNAA 74 mL/min/1.73m2 Normal >60 [facility] Comment on above: Performed By: #### C MP, CBCAD, LIPD #### [facility] [address] [place] [id number] Globulin (S) [Mass/Vol] 2.5 g/dL Normal 1.9-3.7 [facility] Comment on above: Performed By: #### C MP, CBCAD, LIPD #### [facility] [address] [facility] [place] [id number] Glucose [Mass/Vol] 127 mg/dL High 65-99 [facility] Comment on above: Result Comment: For FASTING Glucose --- ADA reference ranges: Normal 65-99 mg/dl Prediabetes 100-125 Diabetes >/= 126 Performed By: #### C MP, CBCAD, LIPD #### [facility] [address] [place] [id number] Potassium [Moles/Vol] 4.2 mmol/L Normal 3.5-5.5 [facility] Comment on above: Performed By: #### C MP, CBCAD, LIPD #### [facility] [address] [place], [place] [id number] Protein [Mass/Vol] 7.7 g/dL Normal 6.1-8.1 [facility] Comment on above: Performed By: #### C MP, CBCAD, LIPD #### [facility] [address], [place] [id number] Sodium [Moles/Vol] 143 mmol/L Normal 135-146 [facility] [employer] Comment on above: Performed By: #### C MP, CBCAD, LIPD #### [facility] [address], [place] [id number] TBIL <0.3 Normal [facility] Comment on above: Performed By: #### C MP, CBCAD, LIPD #### [facility] [address], [place] [id number] Urea nitrogen [Mass/Vol] 8 mg/dL Normal 7-25 [facility] [employer] Comment on above: Performed By: #### C MP, CBCAD, LIPD #### [facility] [address], [place] [id number] Hemoglobin A1Con 08-06-2021 EAG 99.67 Normal [facility] Comment on above: Performed By: #### A 1C #### [facility] [address], [place] [id number] HbA1c (Bld) [Mass fraction] 5.1 % Normal 4.0-6.0 [facility] Comment on above: Performed By: #### A 1C #### [facility] [address], [place] [id number] Lipid Panelon 08-06-2021 Cholesterol [Mass/Vol] 190 mg/dL Normal 125-200 [facility] Comment on above: Result Comment: Low risk < 200mg/dL Borderline risk 201-239 mg/dl High risk > or equal to 240 Performed By: #### C MP, CBCAD, LIPD #### [facility] [address], [place] [id number] Cholesterol in HDL [Mass/Vol] 64 mg/dL Normal >40 [facility] [employer] Comment on above: Result Comment: High Cardiovascular Risk HDL <40 mg/dL Low Cardiovascular Risk HDL > or equal to 60 mg/dl Performed By: #### C MP, CBCAD, LIPD #### [facility] [address], [place] [id number] Cholesterol in LDL [Mass/Vol] 107 mg/dL Normal [facility] [employer] Comment on above: Result Comment: LDL ATP III CLASSIFICATION LDL less than 100 mg/dl Optimal LDL 100-129 mg/dl Near or above optimal LDL 130-159 Borderline high LDL 160-189 High LDL greater than 189 mg/dl Very High Performed By: #### C MP, CBCAD, LIPD #### [facility] [address], [place] [id number] Cholesterol in VLDL [Mass/Vol] 19 mg/dL Normal [facility] Comment on above: Performed By: #### C MP, CBCAD, LIPD #### [facility] [address], [place] [id number] Cholesterol.total/Chol esterol in HDL [Mass ratio] 3 {ratio} Normal [facility] Comment on above: Performed By: #### C MP, CBCAD, LIPD #### [facility] [address], [place] [id number] Triglyceride [Mass/Vol] 95 mg/dL Normal 30-150 [facility] [employer] Comment on above: Result Comment: TRIG ATPIII CLASSIFICATIONS TRIG less than 150 mg/dl Normal TRIG 150-199 mg/dl Borderline High TRIG 200-500 mg/dl High TRIG greather than 500 mg/dl Very High Performed By: #### C MP, CBCAD, LIPD #### [facility] [address], [place] [id number] Q - CULTURE,URINE,ROUTINEon 06-04-2021 CULTURE, URINE, ROUTINE SEE NOTE Normal [facility] [employer] Comment on above: Order Comment: [facility] performed at: [facility], [address], [address] [place] [address], [place], [address], [employer]: Tim Dotson MD [facility] Collection Date/Time: [facility] Results Received Date/Time: [facility] Reported Date/Time: Result Comment: CULT URE, URINE, ROUTINE Micro Number: [id number] Test Status: Final Specimen Source: Not given Specimen Quality: Adequate Result: Mixed genital marie isolated. These superficial bacteria are not indicative of a urinary tract infection. No further organism identification is warranted on this specimen. If clinically indicated, recollect clean-catch, mid-stream urine and transfer immediately to Urine Culture Transport Tube. Performed By: #### [id number] #### [facility] Default [address] [place] [address] MRI LUMBAR SPINE WO CONTRAST on 11-06-2018 [...] Naren Lagos MD 11/06/18 Final result Normal [facility] Vital Signs Date Time Vital Sign Value Performing Clinician Facility 05-15-2024 08:50-0500 Body height 157.5 cm Milton Fraire DPM FACFAS Work Phone: [facility] 05-15-2024 08:50-0500 Body mass index (BMI) [Ratio] 36.21 kg/m2 Milton Fraire DPM FACFAS Work Phone: [facility] 05-15-2024 08:50-0500 Body weight 89.81 kg Milton Fraire DPM FACFAS Work Phone: [facility] 05-15-2024 08:50-0500 Diastolic blood pressure 82 mm[Hg] Milton Fraire DPM FACFAS Work Phone: [facility] 05-15-2024 08:50-0500 Heart rate 92 /min Milton Fraire DPM FACFAS Work Phone: [facility] 05-15-2024 08:50-0500 Systolic blood pressure 132 mm[Hg] Milton Fraire DPM FACFAS Work Phone: [facility] 05-09-2024 14:55-0500 Body height 157.5 cm Giovani Hagen MD Work Phone: [facility] 05-09-2024 14:55-0500 Body mass index (BMI) [Ratio] 36.21 kg/m2 Giovani Hagen MD Work Phone: [facility] 05-09-2024 14:55-0500 Body weight 89.81 kg Giovani Hagen MD Work Phone: [facility] 05-09-2024 14:55-0500 Diastolic blood pressure 88 mm[Hg] Giovani Hagen MD Work Phone: [facility] 05-09-2024 14:55-0500 Heart rate 101 /min Giovani Hagen MD Work Phone: [facility] 05-09-2024 14:55-0500 SaO2% (BldA) [Mass fraction] 96 % Giovani Hagen MD Work Phone: [facility] 05-09-2024 14:55-0500 Systolic blood pressure 134 mm[Hg] Giovani Hagen MD Work Phone: [facility] 05-08-2024 15:13-0500 Body height 157.5 cm Prateek Pedraza DPM Work Phone: [facility] 05-08-2024 15:13-0500 Body mass index (BMI) [Ratio] 35.3 kg/m2 Prateek Pedraza DPM Work Phone: [facility] 01-15-2025 15:13-0500 Body weight 87.54 kg Prateek Pedraza DPM Work Phone: [facility] 05-08-2024 15:13-0500 Respiratory rate 18 /min Prateek Pedraza DPM Work Phone: [facility] 04-30-2024 15:10-0500 Body mass index (BMI) [Ratio] 35.12 kg/m2 Darwin Matty DO Work Phone: [facility] 04-30-2024 15:10-0500 Body weight 87.09 kg Darwin Matty DO Work Phone: [facility] 04-30-2024 15:10-0500 Diastolic blood pressure 74 mm[Hg] Darwin Matty DO Work Phone: [facility] 04-30-2024 15:10-0500 Systolic blood pressure 122 mm[Hg] Darwin Matty DO Work Phone: [facility] 04-26-2024 14:12-0500 Body mass index (BMI) [Ratio] 33.87 kg/m2 Iliana Yacapraro PA-C Work Phone: [facility] 04-26-2024 14:12-0500 Body weight 84 kg Iliana Yacapraro PA-C Work Phone: [facility] 04-26-2024 14:12-0500 Diastolic blood pressure 92 mm[Hg] Iliana Yacapraro PA-C Work Phone: [facility] 04-26-2024 14:12-0500 Heart rate 84 /min Iliana Yacapraro PA-C Work Phone: [facility] 04-26-2024 14:12-0500 Systolic blood pressure 133 mm[Hg] Iliana Yacapraro PA-C Work Phone: [facility] 04-18-2024 16:42-0500 Body mass index (BMI) [Ratio] 35.67 kg/m2 Josephine Gilman NP Work Phone: [facility] 04-18-2024 16:42-0500 Body temperature 97.7 [degF] Josephine Kalina SUPPORT SPECIALIST Work Phone: [facility] 04-18-2024 16:42-0500 Body weight 88.45 kg Josephine Kalina SUPPORT SPECIALIST Work Phone: [facility] 04-18-2024 16:42-0500 Diastolic blood pressure 82 mm[Hg] Josephine Gilman SUPPORT SPECIALIST Work Phone: [facility] 04-18-2024 16:42-0500 Heart rate 112 /min Josephine Kalina SUPPORT SPECIALIST Work Phone: [facility] Comment on above: repeat pulse 96bpm apical. 04-18-2024 16:42-0500 Respiratory rate 20 /min Josephinelatosha Gilman SUPPORT SPECIALIST Work Phone: [facility] 04-18-2024 16:42-0500 SaO2% (BldA) [Mass fraction] 97 % Josephinelatosha Gilman SUPPORT SPECIALIST Work Phone: [facility] 04-18-2024 16:42-0500 Systolic blood pressure 128 mm[Hg] Josephinelatosha Gilman SUPPORT SPECIALIST Work Phone: [facility] 04-03-2024 10:39-0500 Body height 157.5 cm Deena Lyn SUPPORT SPECIALIST Work Phone: [facility] 04-03-2024 10:39-0500 Body mass index (BMI) [Ratio] 35.01 kg/m2 Deena Lyn SUPPORT SPECIALIST Work Phone: [facility] 04-03-2024 10:39-0500 Body weight 86.82 kg Deena Lyn SUPPORT SPECIALIST Work Phone: [facility] 04-03-2024 10:39-0500 Diastolic blood pressure 82 mm[Hg] Deena Lyn SUPPORT SPECIALIST Work Phone: [facility] 04-03-2024 10:39-0500 Heart rate 101 /min Denea Lyn SUPPORT SPECIALIST Work Phone: [facility] 04-03-2024 10:39-0500 Respiratory rate 16 /min Deena Lyn SUPPORT SPECIALIST Work Phone: [facility] 04-03-2024 10:39-0500 SaO2% (BldA) [Mass fraction] 99 % Deena Lyn SUPPORT SPECIALIST Work Phone: [facility] 04-03-2024 10:39-0500 Systolic blood pressure 122 mm[Hg] Deena Lyn SUPPORT SPECIALIST Work Phone: [facility] 04-01-2024 08:40-0500 Body height 157.5 cm Giovani Hagen MD Work Phone: [facility] 04-01-2024 08:40-0500 Body mass index (BMI) [Ratio] 34.39 kg/m2 Giovani Hagen MD Work Phone: [facility] 04-01-2024 08:40-0500 Body weight 85.28 kg Giovani Hagen MD Work Phone: [facility] 04-01-2024 08:40-0500 Diastolic blood pressure 88 mm[Hg] Giovani Hagen MD Work Phone: [facility] 04-01-2024 08:40-0500 Heart rate 88 /min Giovani Hagen MD Work Phone: [facility] 04-01-2024 08:40-0500 SaO2% (BldA) [Mass fraction] 94 % Giovani Hagen MD Work Phone: [facility] 04-01-2024 08:40-0500 Systolic blood pressure 132 mm[Hg] Giovani Hagen MD Work Phone: [facility] 03-20-2024 16:29-0500 Body mass index (BMI) [Ratio] 34.93 kg/m2 Darwin Matty DO Work Phone: [facility] 03-20-2024 16:29-0500 Body weight 86.64 kg Darwin Matty DO Work Phone: [facility] 03-20-2024 16:29-0500 Diastolic blood pressure 72 mm[Hg] Darwin Matty DO Work Phone: [facility] 03-20-2024 16:29-0500 Systolic blood pressure 118 mm[Hg] Darwin Matty DO Work Phone: [facility] 02-06-2024 09:14-0400 Body height 157.5 cm Giovani Hagen MD Work Phone: [facility] 02-06-2024 09:14-0400 Body mass index (BMI) [Ratio] 34.93 kg/m2 Giovani Hagen MD Work Phone: [facility] 02-06-2024 09:14-0400 Body weight 86.64 kg Giovani Hagen MD Work Phone: [facility] 02-06-2024 09:14-0400 Diastolic blood pressure 88 mm[Hg] Giovani Hagen MD Work Phone: [facility] 02-06-2024 09:14-0400 Heart rate 106 /min Giovani Hagen MD Work Phone: [facility] 02-06-2024 09:14-0400 SaO2% (BldA) [Mass fraction] 99 % Giovani Hagen MD Work Phone: [facility] 02-06-2024 09:14-0400 Systolic blood pressure 130 mm[Hg] Giovani Hagen MD Work Phone: [facility] 01-22-2024 13:37-0400 Diastolic blood pressure 74 mm[Hg] Darwin Matty DO Work Phone: [facility] 01-22-2024 13:37-0400 Systolic blood pressure 112 mm[Hg] Darwin Matty DO Work Phone: [facility] 01-09-2024 16:00-0400 Body height 157.5 cm Giovani Hagen MD Work Phone: [facility] 01-09-2024 16:00-0400 Body mass index (BMI) [Ratio] 34.75 kg/m2 Giovani Hagen MD Work Phone: [facility] 01-09-2024 16:00-0400 Body weight 86.18 kg Giovani Hagen MD Work Phone: [facility] 01-09-2024 16:00-0400 Diastolic blood pressure 84 mm[Hg] Giovani Hagen MD Work Phone: [facility] 01-09-2024 16:00-0400 Heart rate 96 /min Giovani Hagen MD Work Phone: [facility] 01-09-2024 16:00-0400 SaO2% (BldA) [Mass fraction] 98 % Giovani Hagen MD Work Phone: [facility] 01-09-2024 16:00-0400 Systolic blood pressure 124 mm[Hg] Giovani Hagen MD Work Phone: [facility] 12-28-2023 15:17-0400 Blood Pressure Location BHAVESH OLEG [facility] 12-28-2023 15:17-0400 Diastolic blood pressure 100 mm[Hg] BHAVESH OLEG [facility] 12-28-2023 15:17-0400 Heart rate 101 /min BHAVESH OLEG [facility] 12-28-2023 15:17-0400 Respiratory rate 18 /min BHAVESH OLEG [facility] 12-28-2023 15:17-0400 Systolic blood pressure 146 mm[Hg] BHAVESH OLEG [facility] 12-26-2023 15:07-0400 Body height 157.5 cm Giovani Hagen MD Work Phone: [facility] 12-26-2023 15:07-0400 Body mass index (BMI) [Ratio] 34.2 kg/m2 Giovani Hagen MD Work Phone: [facility] 12-26-2023 15:07-0400 Body weight 84.82 kg Giovani Hagen MD Work Phone: [facility] 12-26-2023 15:07-0400 Diastolic blood pressure 78 mm[Hg] Giovani Hagen MD Work Phone: [facility] 12-26-2023 15:07-0400 Heart rate 98 /min Giovani Hagen MD Work Phone: [facility] 12-26-2023 15:07-0400 SaO2% (BldA) [Mass fraction] 98 % Giovani Hagen MD Work Phone: [facility] 12-26-2023 15:07-0400 Systolic blood pressure 112 mm[Hg] Giovani Hagen MD Work Phone: [facility] 12-19-2023 15:01-0400 Body height 157.5 cm Solo Mora MD Work Phone: [facility] 12-19-2023 15:01-0400 Body mass index (BMI) [Ratio] 34.39 kg/m2 Solo Mora MD Work Phone: [facility] 12-19-2023 15:01-0400 Body weight 85.28 kg Solo Mora MD Work Phone: [facility] 12-19-2023 15:01-0400 Diastolic blood pressure 91 mm[Hg] Solo Mora MD Work Phone: [facility] 12-19-2023 15:01-0400 Heart rate 94 /min Solo Mora MD Work Phone: [facility] 12-19-2023 15:01-0400 Systolic blood pressure 127 mm[Hg] Solo Mora MD Work Phone: [facility] 11-02-2022 13:10-0400 Body height 157.5 cm Samuel Freeman MD Work Phone: [facility] 11-02-2022 13:10-0400 Body weight 71 kg Samuel Freeman MD Work Phone: [facility] 11-02-2022 13:10-0400 Diastolic blood pressure 97 mm[Hg] Samuel Freeman MD Work Phone: [facility] 11-02-2022 13:10-0400 Heart rate 100 /min Samuel Freeman MD Work Phone: [facility] 11-02-2022 13:10-0400 Systolic blood pressure 141 mm[Hg] Samuel Freeman MD Work Phone: [facility] 08-31-2022 15:30-0400 Diastolic blood pressure 91 mm[Hg] Grayson Peter MD Work Phone: [facility] 08-31-2022 15:30-0400 Heart rate 99 /min Grayson Peter MD Work Phone: [facility] 08-31-2022 15:30-0400 Respiratory rate 24 /min Grayson Peter MD Work Phone: [facility] 08-31-2022 15:30-0400 SaO2% (BldA) [Mass fraction] 97 % Grayson Peter MD Work Phone: [facility] 08-31-2022 15:30-0400 Systolic blood pressure 140 mm[Hg] Grayson Peter MD Work Phone: [facility] 08-31-2022 14:10-0400 Body height 157.5 cm Grayson Peter MD Work Phone: [facility] 08-31-2022 14:10-0400 Body mass index (BMI) [Ratio] 33.84 kg/m2 Grayson Peter MD Work Phone: [facility] 08-31-2022 14:10-0400 Body weight 83.92 kg Grayson Peter MD Work Phone: [facility] 06-30-2022 12:40-0500 Diastolic blood pressure 85 mm[Hg] Grayson Peter MD Work Phone: [facility] 06-30-2022 12:40-0500 Heart rate 70 /min Grayson Peter MD Work Phone: [facility] 06-30-2022 12:40-0500 Respiratory rate 12 /min Grayson Peter MD Work Phone: [facility] 06-30-2022 12:40-0500 SaO2% (BldA) [Mass fraction] 100 % Grayson Peter MD Work Phone: [facility] 06-30-2022 12:40-0500 Systolic blood pressure 120 mm[Hg] Grayson Peter MD Work Phone: [facility] 06-30-2022 11:18-0500 Body height 157.5 cm Grayson Peter MD Work Phone: [facility] 06-30-2022 11:18-0500 Body mass index (BMI) [Ratio] 33.84 kg/m2 Grayson Peter MD Work Phone: [facility] 06-30-2022 11:18-0500 Body weight 83.92 kg Grayson Peter MD Work Phone: [facility] 05-27-2022 11:29-0500 Body weight 85.73 kg Grayson Peter MD Work Phone: [facility] 05-27-2022 11:29-0500 Diastolic blood pressure 92 mm[Hg] Grayson Peter MD Work Phone: [facility] 05-27-2022 11:29-0500 Heart rate 102 /min Grayson Peter MD Work Phone: [facility] 05-27-2022 11:29-0500 Systolic blood pressure 145 mm[Hg] Grayson Peter MD Work Phone: [facility] 05-03-2022 15:30-0500 Body height 158.75 cm Imad Asaad Other [facility] Other 05-03-2022 15:30-0500 Body mass index (BMI) [Ratio] 34.55 kg/m2 Imad Asaad Other [facility] Other 05-03-2022 15:30-0500 Body weight 87.09 kg Imad Asaad Other [facility] Other 05-03-2022 15:30-0500 Diastolic blood pressure 91 mm[Hg] Imad Asaad Other [facility] Other 05-03-2022 15:30-0500 Systolic blood pressure 130 mm[Hg] Imad Asaad Other [facility] Other 05-03-2022 14:47-0500 Body weight 0 kg MD Giovani Hagen Work Phone: [facility] Encounters Encounter Date Encounter Type Care Provider Facility Start: 12-30-2024 ambulatory Madhuri MISHRA Facility:[facility] Start: 05-22-2024 End: 05-22-2024 Clinisync Result Encounter Generic External Data Provider [facility] Unsolicited Start: 05-22-2024 End: 05-22-2024 Clinisync Result Encounter Generic External Data Provider [facility] External Department Unsolicited Start: 05-15-2024 End: 05-15-2024 Bamboo flowsheet Milton Fraire DPM FACFAS Work Phone: [facility] Start: 05-15-2024 End: 05-15-2024 Bamboo flowsheet Milton Fraire DPM FACFAS Work Phone: [facility] Start: 05-15-2024 End: 05-15-2024 Office outpatient visit 25 minutes Milton Fraire DPM FACFAS Work Phone: [facility] Comment on above: Peroneal tendon tear, right, initial enc ounter (Primary Dx); Right foot pain; Sprain of anterior talofibular ligament of right ankle, subsequent encounter; Osteochondritis dissecans of ankle, right; Right ankle instability Start: 05-15-2024 End: 05-15-2024 ambulatory MILTON FRAIRE Not Available Start: 05-14-2024 End: 05-14-2024 Transcribe Orders Rosario Mcconnell MD Work Phone: [facility] Comment on above: ENGLISH (nonalcoholic steatohepatitis) (Rosanne osman Dx) Start: 05-09-2024 End: 05-09-2024 Office outpatient visit 15 minutes Giovani Hagen MD Work Phone: [facility] Comment on above: Cervical radiculopathy due to degenerati ve joint disease of spine (Primary Dx) Start: 05-09-2024 End: 05-09-2024 Orders Only Lydia Ann Allie DO Work Phone: Orthopaedics Comment on above: Right ankle instability (Primary Dx) Start: 05-08-2024 End: 05-08-2024 Office outpatient visit 25 minutes Prateek Pedraza DPM Work Phone: [facility] Comment on above: Peroneal tendon tear, right, initial enc ounter (Primary Dx); Sprain of anterior talofibular ligament of right ankle, subsequent encounter; Osteochondritis dissecans of ankle, right; Severe ankle sprain, right, initial encounter Start: 05-08-2024 End: 05-08-2024 Clinisync Result Encounter Generic External Data Provider [facility] External Department Unsolicited Start: 05-08-2024 End: 05-08-2024 Clinisync Result Encounter Generic External Data Provider [facility] External Department Unsolicited Start: 05-08-2024 End: 05-10-2024 Refill Giovani Hagen MD Work Phone: [facility] Comment on above: Anxiety; Bipolar disorder, in partial remission, most recent episode manic ([facility]/HCC) Start: 05-06-2024 End: 05-06-2024 Telephone encounter Solo Mora MD Work Phone: Cardiology Comment on above: Patient Update (04/09/24 Echo Faxed) Start: 05-02-2024 End: 05-15-2024 Orders Only Iliana Mercado PA-C Work Phone: Gastroenterology Comment on above: Elevated LFTs (Primary Dx) Received images Start: 04-30-2024 End: 04-30-2024 Office outpatient visit 15 minutes CreaWor Work Phone: [facility] Comment on above: Pre-op evaluation; H/O female dyspareunia; Pelvic pain; Other endometriosis; H/O: hysterectomy Start: 04-30-2024 End: 04-30-2024 Preprocedural examination done CreaWor Work Phone: [facility] Start: 04-30-2024 End: 04-30-2024 Bamboo flowsheet Darwin Matty DO Work Phone: [facility] Start: 04-30-2024 End: 04-30-2024 Bamboo flowsheet Darwin Matty DO Work Phone: [facility] Start: 04-30-2024 End: 04-30-2024 Refill Giovani Hagen MD Work Phone: [facility] Comment on above: Attention deficit hyperactivity disorder (ADHD), predominantly inattentive type (CMS/HCC) Attention deficit hy peractivity disorder (ADHD), predominantly inattentive type (CMS/HCC); Obesity (BMI 35.0-39.9 without comorbidity) Start: 04-26-2024 End: 04-26-2024 Office outpatient visit 25 minutes Iliana Mercado PA-C Work Phone: Gastroenterology Comment on above: Elevated LFTs (Primary Dx); BRBPR (bright red blood per rectum) Start: 04-26-2024 End: 04-26-2024 Clinisync Result Encounter Generic External Data Provider [facility] External Department Unsolicited Start: 04-26-2024 End: 04-26-2024 Clinisync Result Encounter Generic External Data Provider [facility] External Department Unsolicited Start: 04-26-2024 End: 04-26-2024 ambulatory ILIANA MERCADO Facility:[facility] Start: 04-26-2024 End: 04-26-2024 Patient encounter procedure Lydia Kelley DO Work Phone: Orthopaedics Comment on above: Sprain of anterior talofibular ligament of right ankle, initial encounter (Primary Dx) Start: 04-22-2024 End: 04-22-2024 Telephone encounter Giovani Hagen MD Work Phone: [facility] Start: 04-19-2024 End: 04-22-2024 Refill Sandy Hammond PA Work Phone: [facility] Comment on above: Obesity (BMI 35.0-39.9 without comorbidi ty) Start: 04-18-2024 End: 04-18-2024 ambulatory JOSEPHINE GILMAN Not Available Start: 04-18-2024 End: 04-18-2024 Office outpatient visit 25 minutes Josephine Gilman SUPPORT SPECIALIST Work Phone: [facility] Comment on above: Acute bronchitis with asthma (CMS/HCC) ( Primary Dx) Start: 04-16-2024 End: 04-16-2024 ambulatory GIOVANI HAGEN Not Available Start: 04-09-2024 End: 04-09-2024 ambulatory SOLO MORA Facility:[facility] Start: 04-05-2024 End: 04-09-2024 ambulatory [facility] Cardiology Comment on above: Surgical Clearance Start: 04-05-2024 End: 04-05-2024 Telephone encounter Solo Mora MD Work Phone: Cardiology Comment on above: Received Outside Medical Records (Cardio Clearance [facility]) Start: 04-03-2024 End: 04-03-2024 ambulatory DEENA LYN Not Available Start: 04-03-2024 End: 04-03-2024 Office outpatient visit 25 minutes Deena Lyn SUPPORT SPECIALIST Work Phone: [facility] Comment on above: Hypokalemia (Primary Dx); Elevated blood sugar; Pre-operative clearance; Acute pain of left shoulder; Obesity (BMI 35.0-39.9 without comorbidity) Start: 04-03-2024 End: 04-03-2024 Preoperative state Deena Lyn SUPPORT SPECIALIST Work Phone: [facility] Start: 04-02-2024 End: 04-02-2024 Telephone encounter Solo Mora MD Work Phone: Cardiology Comment on above: Received Outside Medical Records ([facility]) Start: 04-01-2024 End: 04-01-2024 ambulatory GIOVANI HAGEN Not Available Start: 04-01-2024 End: 04-01-2024 Office outpatient visit 25 minutes Giovani Hagen MD Work Phone: [facility] Comment on above: Tremors of nervous system (Primary Dx); Mild intermittent asthma without complication (CMS/HCC) Start: 03-29-2024 End: 04-01-2024 ambulatory Grayson Peter MD Work Phone: Gastroenterology Comment on above: Elevated AST/ALT Start: 03-27-2024 End: 03-28-2024 ambulatory Zhen Burgess PT Work Phone: [facility] Comment on above: Cervical radiculopathy (Primary Dx) Start: 03-27-2024 End: 03-27-2024 Bamboo flowsheet Zhen Burgess PT Work Phone: [facility] Start: 03-27-2024 End: 03-27-2024 Bamboo flowsheet Zhen Burgess PT Work Phone: [facility] Start: 03-26-2024 End: 03-27-2024 Refill Giovani Hagen MD Work Phone: [facility] Comment on above: Attention deficit hyperactivity disorder (ADHD), predominantly inattentive type (CMS/HCC); Acute right ankle pain Start: 03-25-2024 End: 03-25-2024 Telephone encounter Giovani Hagen MD Work Phone: [facility] Start: 03-20-2024 End: 03-20-2024 Patient encounter procedure Darwin Matty DO Work Phone: [facility] Start: 03-20-2024 End: 03-20-2024 Periodic preventive med est patient 18-39 yrs Darwin Starr DO Work Phone: [facility] Comment on above: Well woman exam with routine gynecologic al exam; Dyspareunia in female; Cystitis Start: 03-20-2024 End: 03-20-2024 ambulatory DARWIN STARR Not Available Start: 03-20-2024 End: 03-29-2024 Clinisync Result Encounter Generic External Data Provider [facility] External Department Unsolicited Start: 03-20-2024 End: 03-29-2024 Clinisync Result Encounter Generic External Data Provider [facility] External Department Unsolicited Start: 03-19-2024 End: 03-19-2024 ambulatory Anitra Lrarmando VAULT CUSTODIAN [facility] Comment on above: Cervical radiculopathy (Primary Dx) Start: 03-11-2024 End: 03-11-2024 ambulatory Arun Brink VAULT CUSTODIAN [facility] Comment on above: Cervical radiculopathy (Primary Dx) Start: 03-11-2024 End: 03-11-2024 Bamboo flowsheet Arun Brink VAULT CUSTODIAN [facility] Start: 03-11-2024 End: 03-11-2024 Bamboo flowsheet Arun Brink VAULT CUSTODIAN [facility] Start: 03-07-2024 End: 03-07-2024 Michael Hagen MD Work Phone: [facility] Comment on above: Obesity (BMI 35.0-39.9 without comorbidi ty) Start: 03-06-2024 End: 03-07-2024 ambulatory Arun Brink VAULT CUSTODIAN [facility] Comment on above: Cervical radiculopathy (Primary Dx) Anxiety; Bipolar disorder, in partial remission, most recent episode manic ([facility]) Start: 02-29-2024 End: 02-29-2024 ambulatory Anitranisha Baingayathriy VAULT CUSTODIAN [facility] Comment on above: Cervical radiculopathy (Primary Dx) Start: 02-29-2024 End: 02-29-2024 Bamboo flowsheet Anitra Bey VAULT CUSTODIAN [facility] Start: 02-29-2024 End: 02-29-2024 Bamboo flowsheet Anitra Lry VAULT CUSTODIAN [facility] Start: 02-27-2024 End: 02-27-2024 ambulatory Anitra Ricci VAULT CUSTODIAN [facility] Comment on above: Cervical radiculopathy (Primary Dx) Start: 02-27-2024 End: 02-27-2024 Bamboo flowsheet Anitra Lry VAULT CUSTODIAN [facility] Start: 02-27-2024 End: 02-27-2024 Bamboo flowsheet Anitra Ricci VAULT CUSTODIAN [facility] Start: 02-20-2024 End: 02-20-2024 Refill Audrey Chris SUPERVISOR [employer] [facility] Comment on above: Attention deficit hyperactivity disorder (ADHD), predominantly inattentive type (CMS/HCC) Start: 02-14-2024 End: 02-15-2024 ambulatory Arun Brink VAULT CUSTODIAN [facility] Comment on above: Cervical radiculopathy (Primary Dx) Start: 02-14-2024 End: 02-14-2024 Bamboo flowsheet Arun Brink VAULT CUSTODIAN [facility] Start: 02-14-2024 End: 02-14-2024 Bamboo flowsheet Arun Brink VAULT CUSTODIAN [facility] Start: 02-12-2024 End: 02-12-2024 ambulatory Zhen Burgess PT Work Phone: [facility] Comment on above: Cervical radiculopathy (Primary Dx) Start: 02-12-2024 End: 02-12-2024 Bamboo flowsheet Zhen Burgess PT Work Phone: [facility] Start: 02-12-2024 End: 02-12-2024 Bamboo flowsheet Zhen Burgess PT Work Phone: [facility] Start: 02-07-2024 End: 02-07-2024 ambulatory Arun Brink VAULT CUSTODIAN [facility] Comment on above: Cervical radiculopathy (Primary Dx) Start: 02-07-2024 End: 02-07-2024 Bamboo flowsheet Arun Brink VAULT CUSTODIAN [facility] Start: 02-07-2024 End: 02-07-2024 Bamboo flowsheet Arun Hernadez VAULT CUSTODIAN [facility] Start: 02-06-2024 End: 02-06-2024 Office outpatient visit 25 minutes Giovani Hagen MD Work Phone: [facility] Comment on above: Localized edema (Primary Dx); Obesity (BMI 35.0-39.9 without comorbidity); Injury of right ankle, subsequent encounter; Anxiety; Bipolar disorder, in partial remission, most recent episode manic ([facility]) Start: 02-06-2024 End: 02-06-2024 ambulatory GIOVANI HAGEN Not Available Start: 02-05-2024 End: 02-05-2024 Bamboo flowsheet Zhen Burgess PT Work Phone: [facility] Start: 02-05-2024 End: 02-05-2024 Bamboo flowsheet Zhen Burgess PT Work Phone: [facility] Start: 02-05-2024 End: 02-05-2024 ambulatory Zhen Burgess PT Work Phone: [facility] Comment on above: Cervical radiculopathy (Primary Dx) Start: 01-29-2024 End: 01-29-2024 Telephone encounter Zhen Burgess PT Work Phone: [facility] Comment on above: PT Initial Eval (Tried to contact to [facility] PT Eval for cervical radiculopathy; but had to lm requesting call back.); Call Back (She contacted and we scheduled PT Eval 02/04 w/ Zhen Burgess, PT.) Start: 01-22-2024 End: 01-22-2024 Office outpatient visit 15 minutes Darwin Matty DO Work Phone: [facility] Comment on above: Dyspareunia in female; Urethral pain Start: 01-22-2024 End: 01-22-2024 ambulatory DARWIN MATTY Not Available Start: 01-09-2024 End: 01-09-2024 Office outpatient visit 25 minutes Giovani Hagen MD Work Phone: [facility] Comment on above: Cervical radiculopathy (Primary Dx); Attention deficit hyperactivity disorder (ADHD), predominantly inattentive type (CMS/HCC); Anxiety; Bipolar disorder, in partial remission, most recent episode manic (CMS/HCC) Start: 01-09-2024 End: 01-09-2024 ambulatory GIOVANI HAGEN Not Available Start: 01-08-2024 End: 01-08-2024 Telephone encounter Giovani Hagen MD Work Phone: [facility] Comment on above: Med Refill Start: 12-28-2023 End: 12-28-2023 Patient encounter procedure BHAVESH DEJESUS [facility] Start: 12-28-2023 End: 12-29-2023 ambulatory BHAVESH DEJESUS Facility:[facility] Comment on above: Zio Start: 12-26-2023 End: 12-26-2023 ambulatory GIOVANI HAGEN Not Available Start: 12-26-2023 End: 12-26-2023 Office outpatient visit 25 minutes Giovani Hagen MD Work Phone: [facility] Comment on above: Cervical radiculopathy (Primary Dx); Acute nonintractable headache, unspecified headache type; Nausea and vomiting, unspecified vomiting type Start: 12-19-2023 End: 12-21-2023 Orders Only Solo Mora MD Work Phone: Cardiology Comment on above: Syncope and collapse (Primary Dx) Event (ZIO PATCH) Syncope, unspecified syncope type (Primary Dx) Start: 12-18-2023 End: 02-01-2024 Telephone encounter Radha Kendrick [facility] Comment on above: Lab results Start: 12-13-2023 End: 12-13-2023 Clinisync Result Encounter Generic External Data Provider [facility] External Department Unsolicited Start: 12-13-2023 End: 12-13-2023 Clinisync Result Encounter Generic External Data Provider [facility] External Department Unsolicited Start: 12-04-2023 End: 12-04-2023 ambulatory KIRANBETY Lisbeth HIEU Not Available Start: 12-04-2023 Patient encounter status Zhen Burgess PT Work Phone: [facility] Start: 11-02-2023 Orders Only Solo Mora MD Work Phone: Cardiology Comment on above: Gastroparesis (Primary Dx) Patient Update (Refe rral & Records are in Care Everywhere) Start: 10-03-2023 End: 10-03-2023 ambulatory GIOVANI HAGEN Not Available Start: 09-07-2023 End: 09-07-2023 ambulatory CADE Jonelle WILCOX Not Available Start: 03-22-2023 End: 03-24-2023 Evaluation and management of inpatient [facility] Start: 03-20-2023 ambulatory Grayson Peter MD Work Phone: Gastroenterology Comment on above: Thoughts and input Start: 03-20-2023 Telephone encounter Charlette Campuzano MD Work Phone: [facility] Adult Start: 11-03-2022 Telephone encounter Maria Dolores Corey DO Work Phone: Gastroenterology Comment on above: Medication Preauthorization ([place] for Ibsr pilar) Start: 11-02-2022 End: 11-02-2022 Orders Only Maria Dolores Corey DO Work Phone: Gastroenterology Comment on above: Irritable bowel syndrome with constipati on (Primary Dx) Gastroparesis Gastroparesis (Prima ry Dx) Start: 10-26-2022 End: 10-26-2022 ambulatory Imad Asaad Facility:[facility] Start: 10-26-2022 End: 10-26-2022 ambulatory MD Giovani Hagen Work Phone: [facility] Work Phone: Start: 10-26-2022 End: 10-26-2022 Patient encounter procedure MD Giovani Hagen Work Phone: [facility]-Ultrasound [facility] [place] Work Phone: Start: 10-18-2022 ambulatory Maria Dolores Corey DO Work Phone: Gastroenterology Start: 10-18-2022 Telephone encounter Maria Dolores Corey DO Work Phone: Gastroenterology Comment on above: Medication Preauthorization ([employer]) Results Start: 10-17-2022 End: 10-17-2022 Patient encounter procedure Electrogastrogram [facility] Work Phone: Gastroenterology Comment on above: Gastroparesis (Primary Dx) Start: 09-12-2022 End: 09-12-2022 Subsequent hospital visit by physician [facility] Work Phone: [facility] Radiology Molecular Comment on above: Nausea [R11.0] Start: 08-31-2022 End: 08-31-2022 Subsequent hospital visit by physician Grayson Pteer MD Work Phone: Ambulatory Surgery Comment on above: PUD (peptic ulcer disease) [K27.9] Start: 08-24-2022 Telephone encounter Nurse Jud [facility] Work Phone: Gastroenterology Comment on above: Appointment Start: 07-08-2022 End: 07-08-[address] MADHURI MISHRA . Facility:[facility] Start: 07-06-2022 End: 07-07-[address] MADHURI MISHRA . Facility:[facility] Start: 07-05-2022 End: 07-05-2022 Patient encounter procedure Madhuri MISHRA [facility] Start: 07-04-2022 Orders Only Grayson Peter MD Work Phone: Gastroenterology Start: 06-30-2022 End: 06-30-2022 Subsequent hospital visit by physician Grayson Peter MD Work Phone: Ambulatory Surgery Comment on above: Bilious vomiting with nausea [R11.14] Start: 06-29-2022 End: 06-30-[address] MADHURI MISHRA . Facility:[facility] Start: 06-29-2022 End: 06-29-2022 Lab Drop off Madhuri MISHRA [facility] Start: 06-23-2022 ambulatory Grayson Peter MD Work Phone: Gastroenterology Comment on above: EGD instructions Start: 06-23-2022 E-mail encounter from caregiver Grayson Peter MD Work Phone: [facility] Start: 06-16-2022 ambulatory [facility] Provider Gastroenterology Comment on above: Question regarding US ABD RT UPPER QUADR ANT Start: 06-15-2022 End: 06-15-2022 Subsequent hospital visit by physician [facility] Work Phone: [facility] Radiology Ultrasound Comment on above: Liver lesion [K76.9] Start: 06-14-2022 Orders Only Grayson Peter MD Work Phone: Ambulatory Surgery Comment on above: Liver lesion (Primary Dx) Results Start: 06-10-2022 ambulatory Diamond Pycraft RT(R) Radiology Ct Scan Comment on above: Radiology CT Start: 06-10-2022 Patient encounter procedure Diamond Pycraft RT(R) [facility] Start: 06-10-2022 End: 06-10-2022 Subsequent hospital visit by physician Ct Prep [facility] Radiology Ct Scan Comment on above: Bilious vomiting with nausea [R11.14] Start: 05-27-2022 End: 05-27-2022 Subsequent hospital visit by physician [facility] Work Phone: [facility] Radiology General Comment on above: SOB (shortness of breath) [R06.02] Start: 05-27-2022 End: 05-27-2022 Patient encounter procedure Grayson Peter MD Work Phone: Gastroenterology Comment on above: Fatty liver (Primary Dx); Bilious vomiting with nausea; Right sided abdominal pain; Nausea; History of diverticulitis; SOB (shortness of breath) Start: 05-13-2022 End: 05-13-2022 ambulatory Imad Asaad Facility:[facility] Start: 05-13-2022 End: 05-13-2022 ambulatory MD Giovani Hagen Work Phone: [facility] Work Phone: Start: 05-13-2022 End: 05-13-2022 Patient encounter procedure MD Giovani Hagen Work Phone: [facility]-Digestive Health Work Phone: Start: 05-03-2022 End: 05-04-2022 ambulatory IMAD Medicine in Practice [facility] Khush Other Start: 05-03-2022 Office consultation new/estab patient 60 min Imad Asaad [facility] Gastroenterology Start: 04-20-2022 End: 04-20-[address] AURORA IRBY . Facility:[facility] Start: 04-06-2022 End: 04-07-[address] GIOVANI HAGEN Facility:[facility] Start: 12-21-2021 End: 12-22-[address] AURORA IRBY . Facility:[facility] Start: 12-10-2021 End: 12-10-2021 Subsequent hospital visit by physician [facility] Ultrasound Comment on above: Elevated [...] Start: 11-06-2018 End: 11-09-2018 Patient encounter procedure OZIEL MONTEIRO [facility] Procedures Date Procedure Procedure Detail Performing Clinician Start: 05-22-2024 Colonoscopy Generic External Data Provider Start: 05-15-2024 Radex ankle complete minimum 3 views Milton Fraire DPM FACFAS Work Phone: Start: 05-08-2024 ALL CBC WITH AUTO DIFF Darwin Matty DO Work Phone: Start: 05-02-2024 End: 05-02-2024 Liver elastography w/o imag w/i&r Iliana Mercado PA-C Work Phone: Start: 04-26-2024 [facility] CBC W AUTO DIFF BLD Generic External Data Provider Start: 03-20-2024 IGP,APTIMA HPV,AGE GDLN Darwin Matty DO Work Phone: Start: 12-13-2023 ALL CBC WITH AUTO DIFF Dez Colvin DPM Work Phone: Start: 04-18-2023 History of cholecystectomy History of cholecystectomy Zhen Burgess PT Work Phone: Start: 10-26-2022 Ultrasonography of liver MD Giovani Hagen Work Phone: Start: 09-23-2022 H/O: hysterectomy History of hysterectomy Zhen Burgess PT Work Phone: Start: 09-12-2022 Gastric emptying imaging study Grayson brink MD Work Phone: Start: 08-31-2022 Level iv surg pathology gross&microscopic exam Grayson Peter MD Work Phone: Start: 08-31-2022 Esophagogastroduodenoscopy transoral diagnostic Grayson Peter MD Work Phone: Start: 06-30-2022 Level iv surg pathology gross&microscopic exam Grayson Peter MD Work Phone: Start: 06-30-2022 Esophagogastroduodenoscopy transoral diagnostic Grayson Peter MD Work Phone: Start: 06-15-2022 Us abdominal real time w/image limited Grayson Peter MD Work Phone: Start: 06-10-2022 Ct abdomen & pelvis w/o contrast material Grayson Peter MD Work Phone: Start: 05-27-2022 Radiologic exam chest 2 views Grayson mcnamara MD Work Phone: Start: 05-13-2022 Ultrasound elastography of liver MD Jet Hagen Work Phone: Start: 12-10-2021 Us abdominal real time w/image limited Grayson Peter MD Work Phone: Start: 05-01-2019 Cystourethroscopy with dilation of urethral stricture Madhuri MISHRA Start: 11-07-2018 RADIOLOGY REPORT OZIEL MONTEIRO Start: 11-06-2018 Mri spinal canal lumbar w/o contrast material OZIEL CAYETANO Start: 09-18-2018 Facet Medial Branch Block 1 Madhuri MOORE Comment on above: Bilateral T5-T8 -10% relief x 2 hours. Start: 07-31-2018 Injection of sacroiliac joint using fluoroscopic guidance Madhuri MISHRA Comment on above: right 40% relief Start: 07-02-2018 Injection of sacroiliac joint using fluoroscopic guidance Madhuri MISHRA Comment on above: right 50% relief to present section Madhuri SERRANO Cholecystectomy BHAVESH FLORES FELIPA H/O: hysterectomy H/O: hysterectomy Darwin Matty DO Work Phone: Hysterectomy Madhuri MISHRA Plan of Treatment Date Care Activity Detail Author Start: 12-23-2024 Influenza vaccination Influenza Vaccine (#1) [facility] Comment on above: Postponed from 12/24/2023 (Other Medical Reasons) Start: 07-26-2024 End: 07-26-2024 ambulatory 07/26/2024 8:[address] [facility] Gastroenterology [address] [place] [address] [place] [address] [place] [address] Elevated LFT, per Pt Gastroenterology Comment on above: Elevated LFT, per Pt Start: 06-17-2024 End: 06-17-2024 Patient encounter procedure 06/17/2024 10:30 AM EST Office Visit Orthopaedics [address] [address] Naren Verdugo PA-C [address] [place], [place] [id number] 1st post op Rt ankle arthroscopy/internal brace 06/04/24 Orthopaedics Comment on above: 1st post op Rt ankle arthroscopy/interna l brace 06/04/24 Start: 06-12-2024 End: 06-12-2024 Patient encounter procedure Cardiology Comment on above: Dx: Syncope, unspecified syncope type [R 55] Start: 06-12-2024 End: 06-12-2024 ambulatory 06/12/2024 1:45 PM EST Results Only Cardiology [address] [place], [place] [id number] Dx: Syncope, unspecified syncope type [R55] Cardiology Comment on above: Dx: Syncope, unspecified syncope type [R 55] Start: 06-10-2024 End: 06-10-2024 Patient encounter procedure 06/10/2024 9:40 AM EST Appointment [facility] [address] [facility] [address] [place] [phone] Rosario Mcconnell I, MD [address] [facility] [address] [place] [address] [facility] - [facility] Comment on above: [facility]OH [facility] - [facility]CEPT Start: 06-04-2024 End: 06-04-2024 Patient encounter procedure 06/04/2024 9:40 AM EST Office Visit [facility] [address] [place] [phone] Milton Fraire, DPM FACFAS [address] [facility] [place] [address] [facility] Start: 06-04-2024 End: 06-04-2024 Admission to same day surgery center 06/04/2024 7:30 AM EST - 06/04/2024 10:10 AM EST Surgery [facility] Surgery [address] [place] [address] Lydia Kelley DO [address] [place] [address] REPAIR ANKLE LIGAMENT SECONDARY DISRUPTED, COLLATERAL 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] Start: 05-31-2024 End: 05-31-2024 ambulatory 05/31/2024 1:15 PM EST [facility] [address] [address] Lydia Kelley DO [address] [place] [address] 4 week f/u, right ankle Orthopaedics Comment on above: 4 week f/u, right ankle Start: 05-31-2024 End: 05-31-2024 Patient encounter procedure 05/31/2024 9:45 AM EST Office Visit Orthopaedics [address] [place] [address] Lydia Kelley DO [address] [place] [address] 4 week f/u, right ankle Orthopaedics Comment on above: 4 week f/u, right ankle Start: 05-22-2024 End: 05-22-2024 Patient encounter procedure 05/22/2024 2:30 PM EST Appointment Ambulatory Surgery [address] [place] [address] [place] [address] [place] [phone] BRBPR (bright red blood per rectum) [K62.5] Ambulatory Surgery Comment on above: BRBPR (bright red blood per rectum) [K62 .5] Start: 05-15-2024 End: 05-15-2024 Patient encounter procedure [facility] Comment on above: Arrived Start: 05-08-2024 End: 05-08-2024 Patient encounter procedure 05/08/2024 3:10 PM EST Office Visit [facility] [address] [place] [phone] Prateek Pedraza DPM [address] [address] [facility] Start: 05-05-2024 End: 05-05-2024 Anesthesia consultation 05/05/2024 11:59 PM EST Anesthesia Event Ambulatory [facility] [id number] [address] Sharla Bonds, BASSAM.ORACLE ERP DEVELOPER [address] [place] [address] Ambulatory Surgery Start: 05-02-2024 End: 05-02-2024 ambulatory 05/02/2024 12:00 PM EST Procedure Gastroenterology [id number] [address] fibroscan Gastroenterology Comment on above: fibroscan Start: 05-01-2024 End: 05-01-2024 Patient encounter procedure 05/01/2024 4:30 PM EST Office Visit [facility] [address] [place] [address] Prateek Pedraza, DPM [address] [address] [facility] Start: 04-30-2024 End: 04-30-2024 Patient encounter procedure [facility] Comment on above: Arrived Start: 04-26-2024 End: 04-26-2024 Patient encounter procedure 04/26/2024 3:05 PM EST Office Visit Gastroenterology [address] [place] [address] Iliana Mercado PA-C [address] [place], [place] [phone] Elevated LFT, per Pt Gastroenterology Comment on above: Elevated LFT, per Pt Start: 04-26-2024 End: 07-26-2024 Alpha 1 antitrypsin [Mass/volume] in Serum or Plasma [facility] Comment on above: Expected: 04/26/2024, Expires: Start: 04-26-2024 End: 07-26-2024 [id number] [Mass/volume] in Serum or Plasma [facility] Work Phone: Comment on above: Expected: 04/26/2024, Expires: Start: 04-26-2024 End: 07-26-2024 DENY BY IFA WITH REFLEX [facility] Comment on above: Expected: 04/26/2024, Expires: Start: 04-26-2024 End: 07-26-2024 Ceruloplasmin [Mass/volume] in Serum or Plasma [facility] Comment on above: Expected: 04/26/2024, Expires: Start: 04-26-2024 End: 07-26-2024 Hepatitis A virus IgM Ab [Presence] in Serum [facility] Comment on above: Expected: 04/26/2024, Expires: Start: 04-26-2024 End: 07-26-2024 Hepatitis B virus core IgM Ab [Presence] in Serum [facility] Comment on above: Expected: 04/26/2024, Expires: Start: 04-26-2024 End: 07-26-2024 Hepatitis B virus surface Ag [Presence] in Serum [facility] Comment on above: Expected: 04/26/2024, Expires: Start: 04-26-2024 End: 07-26-2024 Hepatitis C virus Ab [Presence] in Serum [facility] Comment on above: Expected: 04/26/2024, Expires: Start: 04-26-2024 End: 07-26-2024 Mitochondria Ab [Presence] in Serum by Immunofluorescence [facility] Comment on above: Expected: 04/26/2024, Expires: Start: 04-26-2024 End: 07-26-2024 Smooth muscle Ab [Presence] in Serum [facility] Comment on above: Expected: 04/26/2024, Expires: Start: 04-03-2024 End: 04-03-2025 Hemoglobin A1c/Hemoglobin.total in Blood Hemoglobin A1c Lab Routine Elevated blood sugar Expected: 04/03/2024 (Approximate), Expires: 04/03/2025 [facility] Comment on above: Expected: 04/03/2024 (Approximate), Expi res: 04/03/2025 Start: 04-03-2024 End: 04-03-2025 MR Shoulder - left WO contrast MR shoulder left wo IV contrast Imaging Routine Acute pain of left shoulder Expected: 04/03/2024, Expires: 04/03/2025 [facility] Comment on above: Expected: 04/03/2024, Expires: Start: 04-03-2024 End: 04-03-2025 Potassium [Moles/volume] in Serum or Plasma Potassium Lab Routine Hypokalemia Expected: 04/03/2024 (Approximate), Expires: 04/03/2025 [facility] Work Phone: Comment on above: Expected: 04/03/2024 (Approximate), Expi res: 04/03/2025 Start: 04-01-2024 End: 04-01-2024 Patient encounter procedure 04/01/2024 8:30 AM EST Office Visit [facility] [address] [place] [address] Giovani Hagen MD [address] [place] [address] [facility] Start: 03-27-2024 End: 03-27-2024 ambulatory 03/27/2024 4:00 PM EST Treatment [facility] [address] [place] [address] Zhen Burgess, PT [address] [place] [address] [facility] Start: 03-25-2024 End: 03-25-2024 ambulatory 03/25/2024 4:00 PM EST Treatment [facility] [address] [place] [address] Arun Hernadez, VAULT CUSTODIAN [facility] Start: 03-20-2024 End: 03-20-2024 Patient encounter procedure 03/20/2024 4:00 PM EST Office Visit [facility] [address] [place] [phone] Darwin Starr, DO [address] [place] [address] [facility] Start: 03-19-2024 End: 03-19-2024 ambulatory 03/19/2024 4:00 PM EST Treatment [facility] [address] [place] [address] Anitra Ricci, VAULT CUSTODIAN [facility] Start: 03-13-2024 End: 03-13-2024 ambulatory 03/13/2024 4:30 PM EST Treatment [facility] [address] [place] [address] Zhen Burgess, PT [address] [place] [address] [facility] Start: 03-11-2024 End: 03-11-2024 ambulatory [facility] Comment on above: Arrived Start: 03-06-2024 End: 03-06-2024 ambulatory [facility] Start: 03-04-2024 End: 03-04-2024 ambulatory 03/04/2024 9:00 AM EST Treatment [facility] [address] [place] [address] Arun Hernadez, VAULT CUSTODIAN [facility] Start: 02-29-2024 End: 02-29-2024 ambulatory [facility] Comment on above: Arrived Start: 02-27-2024 End: 02-27-2024 ambulatory [facility] Comment on above: Arrived Start: 02-21-2024 End: 02-21-2024 ambulatory 02/21/2024 4:30 PM EDT Treatment [facility] [address] [place] [address] Anitra Ricci, VAULT CUSTODIAN [facility] Start: 02-14-2024 End: 02-14-2024 ambulatory [facility] Start: 02-13-2024 End: 02-13-2024 Patient encounter procedure Cardiology Comment on above: Dx: Syncope, unspecified syncope type [R 55] Start: 02-13-2024 End: 02-13-2024 ambulatory 02/13/2024 2:00 PM EDT Results Only Cardiology [address] [place], [place] [id number] Dx: Syncope, unspecified syncope type [R55] Cardiology Comment on above: Dx: Syncope, unspecified syncope type [R 55] Start: 02-12-2024 End: 02-12-2024 ambulatory [facility] Comment on above: Arrived Start: 02-07-2024 End: 02-07-2024 ambulatory [facility] Comment on above: Arrived Start: 02-05-2024 End: 02-05-2024 ambulatory [facility] Comment on above: Cervical radiculopathy Start: 01-22-2024 End: 01-22-2024 Patient encounter procedure 01/22/2024 1:50 PM EDT Office Visit [facility] [address] [place] [address] Darwin Starr DO [address] [place] [address] [facility] Start: 01-09-2024 End: 01-09-2024 Patient encounter procedure 01/09/2024 4:00 PM EDT Office Visit [facility] [address] [facility] [address] [place] [address] Giovani Hagen MD [address] [facility] [address] [place] [address] [facility] Start: 01-09-2024 End: 01-08-2025 MR Cervical spine WO contrast MR cervical spine wo contrast Imaging Routine Cervical radiculopathy Expected: 01/09/2024, Expires: 01/08/2025 [facility] Comment on above: Expected: 01/09/2024, Expires: 5 Start: 01-09-2024 End: 01-08-2025 XR Cervical spine 2 or 3 Views XR cervical spine 2 or 3 views Imaging Routine Cervical radiculopathy Expected: 01/09/2024, Expires: 01/08/2025 [facility] Work Phone: Comment on above: Expected: 01/09/2024, Expires: 5 Start: 12-24-2023 Covid-19 Vaccine ( season) Covid-19 Vaccine ( season) [facility] Start: 12-24-2023 Covid-19 Vaccine ( season) Covid-19 Vaccine ( season) [facility] Start: 12-24-2023 Influenza [facility] Start: 12-19-2023 End: 12-19-2023 ambulatory 12/19/2023 2:15 PM EDT Results Only Cardiology [address] [place] [address] Exertional Syncope. Referring: Dr. Shilo Dillon Cardiology Comment on above: Exertional Syncope. Referring: Dr. Shilo Dillon Start: 12-19-2023 End: 12-19-2023 Patient encounter procedure Cardiology Comment on above: Exertional Syncope. Referring: Dr. Shilo Dillon Start: 04-24-2023 Behavioral Health Screening Behavioral Health Screening [facility] Start: 12-23-2022 Covid-19 Vaccine () Covid-19 Vaccine () [facility] Start: 12-23-2022 Influenza vaccination [facility] Start: 05-13-2022 [facility] Start: 04-24-2022 DEPRESSION ASSESSMENT DEPRESSION ASSESSMENT [facility] Start: 12-28-2021 COVID-19 VACCINE (4 - Booster for Pfizer series) COVID-19 VACCINE (4 - Booster for Pfizer series) [facility] Start: 12-28-2021 COVID-19 VACCINE (4 - Pfizer series) COVID-19 VACCINE (4 - Pfizer series) [facility] Start: 12-23-2021 Influenza vaccination INFLUENZA (#1) [facility] Start: 02-06-2020 Urine microalbumin profile DTaP,Tdap,Td Vaccine (6 - Td or Tdap) [facility] Start: 2018 HPV TESTING HPV TESTING [facility] Start: 2009 PAP TESTING PAP TESTING [facility] Start: 2009 Screening for malignant neoplasm of cervix Cervical Cancer Screening [facility] Start: 09-29-2007 Urine microalbumin profile DTAP,TDAP,TD (1 - Tdap) [facility] Start: 11-30-2006 HPV Vaccine (2 - 3-dose series) HPV Vaccine (2 - 3-dose series) [facility] Start: 2006 Anxiety Screening Anxiety Screening [facility] Start: 2006 Depression Screening Depression Screening [facility] Start: 2006 HEPATITIS C SCREENING HEPATITIS C SCREENING [facility] Start: 2006 Hepatitis C screening Hepatitis C Screening [facility] Start: 2006 HIV SCREENING HIV SCREENING [facility] Start: 2006 HIV screening HIV Screening [facility] Start: 1988 HEPATITIS B (1 of 3 - 3-dose series) HEPATITIS B (1 of 3 - 3-dose series) [facility] Actin smooth muscle IgG Ab [Units/volume] in Serum [facility] Alpha 1 antitrypsin [Mass/volume] in Serum or Plasma [facility] Alpha 1 antitrypsin phenotyping [Identifier] in Serum or Plasma by Immunofixation [facility] Ceruloplasmin [Mass/volume] in Serum or Plasma [facility] End: 06-26-2023 Ct abdomen & pelvis w/o contrast material CT ABD/PEL WO IVCON Radiology Routine Bilious vomiting with nausea Right sided abdominal pain Nausea 1 Occurrences starting 05/27/2022 until 06/26/2023 [facility] Work Phone: Comment on above: 1 Occurrences starting 05/27/2022 until 06/26/2023 End: 05-14-2025 CT Guidance for core needle biopsy of Liver LIVER BIOPSY NEEDLE Endoscopy Routine ENGLISH (nonalcoholic steatohepatitis) 1 Occurrences starting 05/14/2024 until 05/14/2025 [facility] Work Phone: Comment on above: 1 Occurrences starting 05/14/2024 until 05/14/2025 Cytology Cervical or vaginal smear or scraping study Pap Smear Pathology and Cytology Routine Well woman exam with routine gynecological exam Ordered: 03/20/2024 [facility] Work Phone: Comment on above: Ordered: 03/20/2024 End: 11-01-2024 ECG COMPLETE ECG COMPLETE ECG Routine Gastroparesis 1 Occurrences starting 11/02/2023 until 11/01/2024 [facility] Work Phone: Comment on above: 1 Occurrences starting 11/02/2023 until 11/01/2024 End: 12-18-2024 ECG COMPLETE ECG COMPLETE ECG Routine Syncope and collapse 1 Occurrences starting 12/19/2023 until 12/18/2024 [facility] Work Phone: Comment on above: 1 Occurrences starting 12/19/2023 until 12/18/2024 End: 05-27-2023 EGD DIAGNOSTIC EGD DIAGNOSTIC Endoscopy Routine Bilious vomiting with nausea Right sided abdominal pain 1 Occurrences starting 05/27/2022 until 05/27/2023 [facility] Work Phone: Comment on above: 1 Occurrences starting 05/27/2022 until 05/27/2023 Electrogastrography dx transcutaneous EGG (ELECTROGASTROGRAPHY) Procedures Routine Gastroparesis Ordered: 09/14/2022 [facility] Work Phone: Comment on above: Ordered: 09/14/2022 End: 04-26-2025 Flexible sigmoidoscopy study COLONOSCOPY DIAGNOSTIC Endoscopy Routine BRBPR (bright red blood per rectum) 1 Occurrences starting 04/26/2024 until 04/26/2025 [facility] Comment on above: 1 Occurrences starting 04/26/2024 until 04/26/2025 Hepatitis A virus Ab [Presence] in Serum by Immunoassay [facility] HFE gene mutations f ound [Identifier] in Blood or Tissue by Molecular genetics method Nominal [facility] Homogenous nuclear A b pattern [Titer] in Serum [facility] Human papilloma viru s DNA [Presence] in Unspecified specimen by Probe with amplification HPV DNA probe, amplified Microbiology Routine Well woman exam with routine gynecological exam Ordered: 03/20/2024 [facility] Comment on above: Ordered: 03/20/2024 IgG [Mass/volume] in Serum or Plasma [facility] Lipoprotein a [Moles/volume] in Serum or Plasma [facility] Liver ultrasound attenuation by transient elastography DDI VIBRATION CONTROLLED TRANSIENT ELASTOGRAPHY (VCTE) Endoscopy Routine Elevated LFTs Ordered: 04/26/2024 [facility] Comment on above: Ordered: 04/26/2024 Mitochondria M2 IgG Ab [Units/volume] in Serum [facility] Nuclear Ab [Titer] i n [facility] OUTSIDE VENDOR CARDI AC OUTPATIENT EXTENDED RHYTHM RECORDING (WITHOUT TELEMETRY) OUTSIDE VENDOR CARDIAC OUTPATIENT EXTENDED RHYTHM RECORDING (WITHOUT TELEMETRY) Holter Routine Syncope, unspecified syncope type Ordered: 12/19/2023 [facility] Comment on above: Ordered: 12/19/2023 End: 12-18-2024 STRESS ECHO TREADMILL STRESS ECHO TREADMILL Cardiology Routine Syncope, unspecified syncope type 1 Occurrences starting 12/19/2023 until 12/18/2024 [facility] Work Phone: Comment on above: 1 Occurrences starting 12/19/2023 until 12/18/2024 End: 07-14-2023 Us abdominal real time w/image limited US ABD RT UPPER QUADRANT Radiology Routine Liver lesion 1 Occurrences starting 06/14/2022 until 07/14/2023 [facility] Work Phone: Comment on above: 1 Occurrences starting 06/14/2022 until 07/14/2023 [facility] Immunizations Immunization Date Immunization Notes Care Provider Fa rancho 11-02-2021 SARS-CoV-2 mRNA (gorkxfzjujy-dwme-vphfl se) vaccine Madhuri MISHRA [facility] 04-29-2021 SARS-CoV-2 (COVID-19 ) mRNA BNT-162b2 vax Madhuri MISHRA [facility] 03-03-2021 SARS-CoV-2 (COVID-19 ) mRNA BNT-162b2 vax Madhuri MISHRA [facility] Comment on above: Result Comment: 2022: TPVAL 02-09-2021 influenza virus vaccine, unspecified formulation Madhuri MISHRA [facility] 02-09-2021 influenza, injectabl e, quadrivalent, preservative free Zhen Burgess PT Work Phone: [facility] 03-16-2020 influenza virus vaccine, unspecified formulation Madhuri MISHRA [facility] 03-16-2020 Influenza, injectabl e, Madin Jenn Canine Kidney, preservative free, quadrivalent Zhen Burgess PT Work Phone: [facility] 01-08-2018 influenza virus vaccine, unspecified formulation Madhuri MISHRA [facility] 01-08-2018 influenza, injectabl e, quadrivalent, contains preservative Zhen Blackston PT Work Phone: [facility] 01-08-2018 influenza, injectabl e, quadrivalent, preservative free Zhen Blackston PT Work Phone: [facility] 02-01-2017 influenza virus vaccine, unspecified formulation Madhuri MISHRA [facility] 02-01-2017 Influenza, injectabl e, Madin Olla Canine Kidney, preservative free, quadrivalent Zhen Blackston PT Work Phone: [facility] 03-25-2016 influenza virus vaccine, unspecified formulation Madhuri MISHRA [facility] 03-25-2016 influenza, injectabl e, quadrivalent, preservative free Zhen Blackston PT Work Phone: [facility] 02-05-2010 tetanus toxoid, redu rolanda diphtheria toxoid, and acellular pertussis vaccine, adsorbed Madhuri MISHRA [facility] 01-05-2007 hepatitis B vaccine, pediatric or pediatric/adolescent dosage Madhuri MISHRA [facility] 11-02-2006 hepatitis B vaccine, pediatric or pediatric/adolescent dosage Madhuri MISHRA [facility] 11-02-2006 HPV, unspecified formulation Madhuri MISHRA [facility] 11-02-2006 human papilloma viru s vaccine, quadrivalent Zhen Blackston PT Work Phone: [facility] 11-02-2006 meningococcal ACWY vaccine, unspecified formulation Madhuri MISHRA [facility] 11-02-2006 meningococcal polysaccharide (groups A, C, Y and W-135) diphtheria toxoid conjugate vaccine (MCV4P) Zhen Burgess PT Work Phone: [facility] 02-20-1998 hepatitis B vaccine, pediatric or pediatric/adolescent dosage Madhuri MISHRA [facility] 12-28-1993 diphtheria, tetanus toxoids and pertussis vaccine Zhen Burgess PT Work Phone: [facility] 12-07-1992 diphtheria, tetanus toxoids and pertussis vaccine Zhen Burgess PT Work Phone: [facility] 12-07-1992 measles, mumps and rubella virus vaccine Madhuri MISHRA [facility] 12-07-1992 trivalent poliovirus vaccine, live, oral Zhen Burgess PT Work Phone: [facility] 06-09-1992 diphtheria, tetanus toxoids and pertussis vaccine Zhen Burgess PT Work Phone: [facility] 06-09-1992 measles, mumps and rubella virus vaccine Madhuri MISHRA [facility] 06-09-1992 trivalent poliovirus vaccine, live, oral Zhen Burgess PT Work Phone: [facility] 10-31-1990 varicella virus vaccine Krystalnereyda MISHRA [facility] 06-20-1990 diphtheria, tetanus toxoids and pertussis vaccine Zhen Burgess PT Work Phone: [facility] 05-21-1990 trivalent poliovirus vaccine, live, oral Zhen Barbieton PT Work Phone: [facility] 01-10-1989 trivalent poliovirus vaccine, live, oral Zhen Blackston PT Work Phone: [facility] NEGATED: Highlighted row has not occurred!05-01-2019 influenza virus vaccine, live, attenuated, for intranasal use Madhuri MISHRA [facility] [place] NEGATED: Highlighted row has not occurred!04-03-2019 influenza virus vaccine, live, attenuated, for intranasal use Madhuri MISHRA [facility] Payers Date Payer Category Payer Private Health Insurance [employer] [id number] 2022 Self-pay [id number] 2020 Unknown [id number]. [id number] 1988 Unknown [id number] 2.840.1.642658.3.579.2. 182 1988 Unknown [id number] 2.16840.1.417522.3.579.2. 593 1988 Unknown [id number] 2.16840.1.525773.3.579.2. 593 1988 Unknown [id number] 2.16840.1.866401.3.579.2. 593 1988 Unknown [id number] 2.16840.1.468874.3.579.2. 593 1988 Unknown [id number] 2.16.840.1.348192.3.579.2. 593 1988 Unknown [id number] 2.16.840.1.644912.3.579.2. 593 1988 Unknown [id number] 2.16.840.1.523388.3.579.2. 593 1988 Unknown [id number] 2.16840.1.591410.3.579.2. 593 1988 Unknown [id number] 2.16.840.1.413640.3.579.2. 593 1988 Unknown [id number] 2.16840.1.491799.3.579.2. 593 1988 Unknown [id number] 2.16840.1.807463.3.579.2. 593 1988 Unknown [id number] 2.16840.1.641823.3.579.2. 593 1988 Unknown [id number] 2.16840.1.355069.3.579.2. 593 1988 Unknown [id number] 2.16840.1.142367.3.579.2. 177 1988 Unknown [id number] 2.16840.1.908229.3.579.2. 727 1988 Unknown [id number] 2.840.1.776955.3.579.2. 727 1988 Unknown [id number] 2.16840.1.182415.3.579.2. 1259 1988 Unknown [id number] 2.16840.1.797076.3.579.2. 1259 1988 Unknown [id number] 2.16840.1.357856.3.579.2. 1259 1988 Unknown [id number] 2.16840.1.042671.3.579.2. 125 1988 Unknown [id number] 2.16.840.1.407660.3.579.2. 1258 1988 Unknown [id number] 2.16.840.1.252779.3.579.2. 1258 1988 Unknown [id number] 2.16.840.1.202740.3.579.2. 1258 1988 Unknown [id number] 2.16.840.1.687999.3.579.2. 1258 1988 Unknown [id number] 2.16.840.1.123080.3.579.2. 1258 1988 Unknown [id number] 2.16.840.1.046094.3.579.2. 1258 1988 Unknown [id number] 2.16.840.1.703896.3.579.2. 1258 1988 Unknown [id number] 2.16840.1.036234.3.579.2. 1258 1988 Unknown [id number] 2.16840.1.311287.3.579.2. 1258 1988 Unknown [id number] 2.16840.1.374211.3.579.2. 1258 1988 Unknown [id number] 2.16840.1.828639.3.579.2. 1258 1988 Unknown [id number] 2.16840.1.528408.3.579.2. 1258 1988 Unknown [id number] 2.16840.1.194537.3.579.2. 1258 1988 Unknown [id number] 2.16.840.1.216068.3.579.2. 1258 1988 Unknown [id number] 2.16.840.1.215710.3.579.2. 1258 1988 Unknown [id number] 2.16.840.1.597486.3.579.2. 1258 1988 Unknown [id number] 2.16.840.1.149204.3.579.2. 1258 1988 Unknown [id number] 2.16.840.1.526806.3.579.2. 1258 1988 Unknown [id number] 2.16.840.1.730581.3.579.2. 1258 1988 Unknown [id number] 2.16.840.1.676033.3.579.2. 1258 1988 Unknown [id number] 2.16.840.1.671397.3.579.2. 1258 1988 Unknown [id number] 2.16.840.1.481212.3.579.2. 1258 1988 Unknown [id number] 2.16.840.1.801902.3.579.2. 9 1959 Unknown [id number] Unknown 100 [facility] [employer] [id number] Unknown [id number] 2.16.840.1.788779.3.579.2. 531 Unknown [id number] 2.16.840.1.099246.3.579.2. 531 Social History Date Type Detail Facility Tobacco smoking stat us [facility] Unknown if ever smoked [facility] Work Phone: Start: 1990 Sex Assigned At Female [facility] Start: 03-28-2019 End: 05-27-2022 Tobacco smoking status VAIS Never smoked tobacco [facility] Start: 05-27-2022 End: 05-01-2023 Tobacco use and exposure Smokeless tobacco non-user [facility] Start: 05-27-2022 End: 05-15-2024 Alcohol intake Current drinker of alcohol (finding) [facility] Start: 03-28-2019 Alcohol Comment socially [facility] Start: 1990 Sex Assigned At Not on file [facility] Start: 11-02-2022 End: 05-09-2024 Sex Assigned At [facility] Start: 06-29-2022 End: 05-01-2023 Tobacco smoking status Ex-smoker (finding) [facility] Tobacco smoking status Never [facility] [place] Start: 11-02-2022 End: 05-09-2024 History of Social function [facility] Start: 06-08-2021 Gender identity Identifies as female gender (finding) [facility] Start: 11-16-2021 End: 11-26-2021 Exposure to SARS-CoV-2 (event) Not sure [facility] History of tobacco use Current smoker [facility] Within the last year , have you been afraid of your partner or ex-partner? No [facility] Do you belong to any clubs or organizations such as spiritism groups, [employer], [employer] or athletic groups, or school groups? Yes [...] [OSQ] Very much [facility] (I/We) worried cecilia er (my/our) food would run out before (I/we) got money to buy more. Never true [facility] How often do you hav e 6 or more drinks on 1 occasion? Less than monthly [facility] Goals Date Patient Goal Desired Activity /State Personal health goal Personal health goal Functional Status Date Assessment Result Facility 12-28-2023 Functional Status N/A [facility] [place] 06-30-2022 Functional Status N/A [facility] Clinical Notes 05-03-2022 to 05-15-2024 Telephone Encounter - Rose Jarvis - 05/15/2024 3:56 PM ESTTelephone Encounter - Sujata Sterling Rose - 05/15/2024 3:56 PM ESTMilton Fraire DPM FACFAS - 05/15/2024 8:30 AM EST Note Date & Type Note Facility 05-15-2024 Telephone encounter Note Appts cxl, surgery notified to cxl. [facility] 05-15-2024 Miscellaneous Notes Appts cxl, surgery notified to cxl. Patient has sig bony edema in the talus which needs to heal prior to surgical intervention. This is minimum of 2 months from time of mri and then needs repeat ankle xrays to confirm healing. Patient unfortunately needs to return in May for repeat xrays and needs to be in cam boot until seen at that time. Lydia Kelley DO documented in this encounter [facility] 05-15-2024 History of Present illness Narrative Images from the original note were not included. Patient: Orion Harper : 1990 PCP: Giovani Hagen MD SUBJECTIVE This is a 33 y.o. female that presents today for a chief complaint of pain about the lateral ankle region. She states she tripped down a flight of stairs in December it has been dealing with the pain and swelling in that region for some time. She was immobilized in a pneumatic walking boot but still continues to have pain in that region. She was referred to me for consultation for surgical intervention by Dr. Prateek pedraza. She relates to me that her ankle hurts when she walks and a does feel unstable when walking as well. She has difficulty walking on uneven terrain. 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 [address] Magnetic Resonance Report Signed Patient: ORION HARPER MR#: [id number] : 1990 Acct:[id number] Age/Sex: 33 / F ADM Date: 03/14/24 Loc: MRI Attending Dr: Laurie Trujillo M.D. Ordering Physician: Laurie Trujillo M.D. Date of Service: 03/14/24 Procedure(s): MR ankle RT wo con Accession Number(s): [id number] cc: GIOVANI HAGEN ; Laurie Trujillo M.D. The [place] [id number] Patient Name: ORION HARPER MRN: [id number] date: 1990 Sex: F Assigned Patient Location: MRI Current Patient Location: Accession/Order Number: [id number] Exam Date: 03/14/2024 15:04 Report Date: 03/17/2024 09:08 At the request of: LAURIE TRUJILLO Procedure: MR ankle RT wo con HISTORY: Right ankle pain since an injury on 01/10/2024. Pain and swelling along the medial and lateral aspect of the ankle. Sprain of talofibular ligament. MR ankle RT wo con: 03/14/2024 3:04 PM EST COMPARISON: Radiographs right ankle 03/04/2024 and radiographs right foot and ankle 01/10/2024. TECHNIQUE: Multiplanar, multisequence MRI images of the ankle were obtained without contrast. FINDINGS: LIGAMENTS: The anterior talofibular ligament appears grossly intact. However, there is an ovoid well-corticated 6 mm ossific focus again seen along the anteroinferior aspect of the lateral malleolus at the expected attachment of the anterior talofibular ligament as seen on the prior radiographs. The calcaneofibular ligament, posterior talofibular ligament, and distal tibiofibular ligaments appear within normal limits. The deltoid ligament complex appears moderately thickened and of intermediate signal intensity on the proton density fat-saturated sequence. The flexor retinaculum along the medial aspect of the medial malleolus appears moderately thickened and of intermediate signal intensity with a small amount of adjacent soft tissue edema. TENDONS: There is evidence of a moderate grade longitudinal partial-thickness tear involving the posterior aspect of the inframalleolar portion of the peroneus brevis tendon spanning approximately 2.5 cm in length as best seen on the axial oblique proton density fat-saturated images. The other tendons of the ankle appear within normal limits. There is a small amount of fluid within the retromalleolar and inframalleolar portion of the posterior tibialis tendon sheath. SINUS TARSI AND TARSAL TUNNEL: No space-occupying mass is seen in the tarsal tunnel or the sinus tarsi. BONES AND JOINTS: The bone marrow signal intensity is age appropriate. No unstable osteochondral defect of the tibiotalar joint is identified. There is a small tibiotalar joint effusion. There is a small area of decreased T1 and increased STIR signal intensity within the subchondral bone of the medial talar dome. This measures approximately 4 x 7 mm in transverse and AP dimension. No overlying chondral abnormality is seen. There is a moderate amount of bone marrow edema involving the medial aspect of the body and neck of the talus. There is also a small amount of bone marrow edema within the posteromedial aspect of the tibial plafond. There is a small amount of fluid within a joint recess posterior to the posterior subtalar joint. PLANTAR FASCIA: There is no abnormal thickening or abnormal signal intensity of the plantar fascia and there is no surrounding soft tissue edema to suggest plantar fasciitis. MR/MR ankle RT wo con IMPRESSION: 1. There are MRI findings compatible with a moderate grade sprain or avulsion injury of the flexor retinaculum from the medial malleolus with adjacent soft tissue edema in this region. Therefore, the small linear focus of ossification projecting along the medial aspect of the medial malleolus on the prior radiographs is most likely secondary to either a small avulsion fracture or heterotopic ossification in this region. 2. Probable subacute grade 2 sprain of the deltoid ligament complex. The other ligaments of the ankle including the anterior talofibular ligament appear grossly intact. However, there is a 6 mm posttraumatic ossicle again seen along the anteroinferior aspect of the lateral malleolus at the expected attachment of the anterior talofibular ligament compatible with the sequela of remote trauma to this region. 3. There is evidence of a probable low-grade 4 x 7 mm osteochondral injury of the medial talar dome. There are also bone contusions involving the medial aspect of the body and neck of the talus and a small bone contusion of the posteromedial aspect of the tibial plafond. There is an associated small tibiotalar joint effusion. 4. There is a moderate grade longitudinal partial-thickness tear of the posterior aspect of the inframalleolar portion of the peroneus brevis tendon spanning approximately 2.5 cm in length. The other tendons of the ankle appear within normal limits. Electronically authenticated by: MICHAEL CORTES Date: 03/17/2024 09:08 Dictated By: Michael Cortes M.D. Signed By: 03/17/24 0911 Allergies: Allergies Allergen Reactions Cat Dander Anaphylaxis Iodinated Contrast Media Hives Iodine Itching and Swelling Omnipaque 300: Patient experienced itching on her neck and left side of her face. Also, pt complained of tongue feeling itchy and feels like something is stuck in her throat . Patient received diphenhydramine (Benadryl) Prednisone & Diphenhydramine Other Reaction(s): Unknown Past Medical History: Past Medical History: Diagnosis Date Abnormal computed [...] nephrocalcinosis and a few right renal stones Ankle sprain 01/10/24 Asthma (CMS/HCC) COVID 03/11/2021 Positive COVID Partial [...] cancer screening 04/20/2022 neg Post depression (CMS/HCC) Medications: Current Outpatient Medications: albuterol (2.5 MG/3ML) 0.083% nebulizer solution, Take 3 mL (2.5 mg) by nebulization every 6 (six) hours if needed for wheezing, Disp: 75 mL, Rfl: 11 albuterol HFA 90 mcg/act inhaler, INHALE 2 PUFFS INTO THE LUNGS EVERY 6 HOURS NEEDED FOR 30 DAYS, Disp: , Rfl: ALPRAZolam (Xanax) 0.5 MG tablet, Take 1 tablet (0.5 mg) by mouth in the morning and in the evening, Disp: 60 tablet, Rfl: 0 amphetamine-dextroamphetamine XR (Adderall XR) 30 MG 24 hr capsule, Take 1 capsule (30 mg) by mouth Daily Do not crush or chew., Disp: 30 capsule, Rfl: 0 cephalexin (Keflex) 250 MG capsule, TAKE 1 CAPSULE BY MOUTH AFTER INTERCOURSE TO PREVENT UTI, Disp: , Rfl: EPINEPHrine (Adrenalin) 0.3 MG/0.3ML injection, Inject 0.3 mL (0.3 mg) into the shoulder, thigh, or buttocks 1 (one) time for 1 dose, Disp: 1 each, Rfl: 2 escitalopram (Lexapro) 20 MG tablet, TAKE 1 TABLET BY MOUTH EVERY DAY IN THE MORNING, Disp: 30 tablet, Rfl: 2 Lkczgrkpujb-Gqazmiloa-Eyokor 100-62.5-25 MCG/ACT aerosol powder , Inhale 1 puff Daily, Disp: 1 each, Rfl: 0 montelukast (Singulair) 10 MG tablet, Take 1 tablet (10 mg) by mouth at bedtime, Disp: 30 tablet, Rfl: 11 phentermine (Adipex-P) 37.5 MG tablet, Take 1 tablet (37.5 mg) by mouth in the morning. Take before meals., Disp: 30 tablet, Rfl: 0 Vraylar 4.5 MG capsule, TAKE 1 CAPSULE BY MOUTH EVERY DAY, Disp: 30 capsule, Rfl: 5 ROS: Constitutional: Denies fever, chills, nausea, vomiting GI: Denies abdominal pain, cramping, loose stool, gastric ulcers Musculoskeletal: Denies low back pain, knee pain, systemic arthritis Neurologic: Denies burning, tingling, transient paralysis OBJECTIVE Physical examination: Vascular: Dorsalis pedis posterior tibial pulses are palpable bilateral, no edema noted Neuro: Lawrence-Cullen 5.07 monofilament intact, vibratory sensation intact Derm: All hair growth noted skin temperature is warm to cool knees to toes Musculoskeletal: Muscle strength +5/5 all intrinsic and extrinsic muscles tested significant pain along the course of the peroneal tendon at the watershed region. Patient has significant pain with direct palpation of the watershed region of the peroneal tendon right. He was pain with resisted eversion and plantar flexion of the foot. He was fusiform swelling noted at the watershed area of the peroneal tendon. There is significant hypermobility noted in terms of inversion of the right ankle as well patient was slightly guarded slight anterior drawer sign is noted as well. Pain noted medially of the ankle joint mild crepitus noted with range of motion secondary to her osteochondral defect. Achilles tendon appears to be intact subtalar joint range of motion appears to be unremarkable no subluxation of the subtalar joint noted. XRAY: Three views were taken today AP/MORT/LAT Ankle: No fractures or dislocations seen no spurring noted at the lateral ankle ligament complex noted as reported on the MRI ASSESSMENT 1. Sprain of anterior talofibular ligament of right ankle, subsequent encounter 2. Right foot pain 3. Peroneal tendon tear, right, initial encounter 4. Osteochondritis dissecans of ankle, right 5. Right ankle instability PLAN I Educated the patient on the clinical and MRI findings. We discussed repair of the peroneal brevis tendon with weed tubularization and synovectomy of the peroneal tendon. We discussed performing a lateral ankle stabilization procedure with bolstering of the anterior talofibular ligament and a diagnostic/therapeutic ankle arthroscopy. I discussed the avascular nature of her osteochondral defect we discussed fibrocartilage invagination of the defect within the ankle. She expressed an understanding of this she has attempted and failed conservative care and wishes for surgical intervention. Surgery will be scheduled at the ambulatory surgery center. The patient was educated on the pre, jarocho, postoperative course of the procedure in great detail. We discussed further conservative therapies which the patient has attempted and has failed. I discussed the surgical procedure in great detail including the risks and possible complications. We discussed the following complications in great detail including but not limited to: Pain, infection, prolonged swelling, numbness, tingling, burning, nonhealing wound, nonunion, malunion, chronic pain, development of complex regional pain syndrome, development of deep venous thrombosis. Patient fully understood all possible risks and complications. All questions have been asked and answered. They have consented for the above-stated procedure. JASON Conti documented in this encounter [facility] 05-10-2024 Telephone encounter Note Pt was seen. OARRS reviewed, Rx sent into patient's pharmacy. [facility] 05-10-2024 Miscellaneous Notes Pt was seen. OARRS reviewed, Rx sent into patient's pharmacy. Patient has appointment today. documented in this encounter [facility] 05-09-2024 History of Present illness Narrative Images from the original note were not included. Subjective Patient ID: Orion Harper is a 33 y.o. female who presents for next steps . Pt is still having tingling and pain Current Outpatient Medications on File Prior to Visit Medication Sig Dispense Refill albuterol (2.5 MG/3ML) 0.083% nebulizer solution Take 3 mL (2.5 mg) by nebulization every 6 (six) hours if needed for wheezing 75 mL 11 albuterol HFA 90 mcg/act inhaler INHALE 2 [...] (10 mg) before bedtime. 90 tablet 0 [] benzonatate (Tessalon Perles) 100 MG capsule Take 1 capsule (100 mg) by mouth 3 (three) times a day as needed for cough for up to 10 days Do not crush or chew. 20 capsule 0 cephalexin (Keflex) 250 MG capsule TAKE 1 CAPSULE BY MOUTH AFTER INTERCOURSE TO PREVENT UTI diclofenac (Voltaren) 75 MG EC tablet every 12 (twelve) hours EPINEPHrine (Adrenalin) 0.3 MG/0.3ML injection Inject 0.3 mL (0.3 mg) into the shoulder, thigh, or buttocks 1 (one) time for 1 dose 1 each 2 escitalopram (Lexapro) 20 MG tablet TAKE 1 TABLET BY MOUTH EVERY DAY IN THE MORNING 30 tablet 2 Evtpggiphya-Hipctuffz-Mgrcvv 100-62.5-25 MCG/ACT aerosol powder Inhale 1 puff Daily 1 each 0 furosemide (Lasix) 20 MG tablet Take 1 tablet (20 mg) by mouth Daily 30 tablet 0 meloxicam (Mobic) 15 MG tablet Take 1 tablet (15 mg) by mouth Daily 30 tablet 2 montelukast (Singulair) 10 MG tablet Take 1 tablet (10 mg) by mouth at bedtime 30 tablet 11 phentermine (Adipex-P) 37.5 MG tablet Take 1 tablet (37.5 mg) by mouth in the morning. Take before meals. 30 tablet 0 [] predniSONE (Deltasone) 10 MG tablet Take 4 tablets (40 mg) by mouth Daily for 4 days, THEN 3 tablets (30 mg) Daily for 4 days, THEN 2 tablets (20 mg) Daily for 4 days, THEN 1 tablet (10 mg) Daily for 4 days. 40 tablet 0 promethazine (Phenergan) 12.5 MG tablet Take 1 tablet (12.5 mg) by mouth every 6 (six) hours if needed for nausea or vomiting Take 1 tablet by mouth every 6 hours as needed for nausea. 30 tablet 2 Vraylar 4.5 MG capsule TAKE 1 CAPSULE BY MOUTH EVERY DAY 30 capsule 5 No current facility-administered medications on file prior to visit. I have reviewed and reconciled the history and medication list with the patient today. Allergies Allergen Reactions Cat Dander Anaphylaxis Iodinated Contrast Media Hives Iodine Itching and Swelling Omnipaque 300: Patient experienced itching on her neck and left side of her face. Also, pt complained of tongue feeling itchy and feels like something is stuck in her throat . Patient received diphenhydramine (Benadryl) Prednisone & Diphenhydramine Other Reaction(s): Unknown Social History Tobacco Use Smoking status: Former Smokeless tobacco: Never Vaping Use Vaping status: Unknown Substance Use Topics Alcohol use: Yes Alcohol/week: 2.0 standard drinks of alcohol Types: 2 Standard drinks or equivalent per week Drug use: Never Family History Problem Relation Name Age of Onset Hypertension Mother Hien Hyperlipidemia Mother Hien Anesthesia problems Mother Hien No Known Problems Father No [...] nephrocalcinosis and a few right renal stones Ankle sprain 01/10/24 Asthma (CMS/HCC) COVID 03/11/2021 Positive COVID Partial [...] [place] COLONOSCOPY 05/28/[address] [facility] [address] Peter CT ANGIOGRAM CHEST 07/30/2018 CT ANGIOGRAM CHEST [facility] EGD 06/30/2022 Normal hypopharynx, normal esophagus, gastritis, Non bleeding gastric ulcers. Normal examined duodenum GALLBLADDER SURGERY 03/2023 HYSTERECTOMY PAP SMEAR 04/15/2021 normal PARTIAL HYSTERECTOMY 05/2016 PELVIC LAPAROSCOPY 02/10/2023 Visit Vitals LMP (LMP Unknown) Comment: partial hysterectomy 05/2016 OB Status Hysterectomy Smoking Status Former Review of Systems Constitutional: Negative for chills and fever. Respiratory: Negative for cough and shortness of breath. Objective Physical Exam Constitutional: Appearance: Normal appearance. Musculoskeletal: General: No swelling. Normal range of motion. Right upper arm: Tenderness present. No edema. Left upper arm: Tenderness present. No edema. Arms: Assessment/Plan Problem List Items Addressed This Visit None Visit Diagnoses Cervical radiculopathy due to degenerative joint disease of spine - Primary Relevant Medications HYDROcodone-acetaminophen ([place]) 5-325 MG tablet Other Relevant Orders Ambulatory referral to Pain Medicine No follow-ups on file. documented in this encounter [facility] 05-09-2024 Telephone encounter Note Patient has appointment today. [facility] 05-08-2024 History of Present illness Narrative Patient: Orion Harper : 1990 PCP: Giovani Hagen MD SUBJECTIVE This is a 33 y.o. female that presents today for a chief complaint of outer aspect of right ankle pain since December of 2023. Patient states that she was seen in ER and dispensed a aircast as well as had physical therapy for condition and relates possibly a 3 ft fall with inversion-type injury to her right foot. She was initially seen by orthopedic doctor and had issues and no improvement in sought 2nd opinion by Dr. Duong and was scheduled for surgery however had issues with cardiac clearance and was cleared by Was unable to do surgery. Patient also saw [facility] and wanted to do conservative care for up to 3 months before surgery. Patient has failed most conservative care up to this time an MRI report demonstrated osteochondral defect of the medial talar dome as well as peroneal tendon tear to the right ankle. She presents today for possible treatment options Patient has history of gastroparesis secondary to use of Wegovy in the past has discontinue medication for the past 6 months Allergies: Allergies Allergen Reactions Cat Dander Anaphylaxis Iodinated Contrast Media Hives Iodine Itching and Swelling Omnipaque 300: Patient experienced itching on her neck and left side of her face. Also, pt complained of tongue feeling itchy and feels like something is stuck in her throat . Patient received diphenhydramine (Benadryl) Prednisone & Diphenhydramine Other Reaction(s): Unknown Past Medical History: Past Medical History: Diagnosis Date Abnormal computed [...] cancer screening 04/20/2022 neg Post depression (CMS/HCC) Medications: Current Outpatient Medications: albuterol (2.5 MG/3ML) 0.083% nebulizer solution, Take 3 mL (2.5 mg) by nebulization every 6 (six) hours if needed for wheezing, Disp: 75 mL, Rfl: 11 albuterol HFA 90 mcg/act inhaler, INHALE 2 PUFFS INTO THE LUNGS EVERY 6 HOURS NEEDED FOR 30 DAYS, Disp: , Rfl: ALPRAZolam (Xanax) 0.5 MG tablet, Take 1 tablet (0.5 mg) by mouth in the morning and in the evening, Disp: 60 tablet, Rfl: 0 amphetamine-dextroamphetamine XR (Adderall XR) 30 MG 24 hr capsule, Take 1 capsule (30 mg) by mouth Daily Do not crush or chew., Disp: 30 capsule, Rfl: 0 baclofen (Lioresal) 10 MG tablet, Take 1 tablet (10 mg) by mouth in the morning and 1 tablet (10 mg) in the evening and 1 tablet (10 mg) before bedtime., Disp: 90 tablet, Rfl: 0 cephalexin (Keflex) 250 MG capsule, TAKE 1 CAPSULE BY MOUTH AFTER INTERCOURSE TO PREVENT UTI, Disp: , Rfl: diclofenac (Voltaren) 75 MG EC tablet, every 12 (twelve) hours, Disp: , Rfl: EPINEPHrine (Adrenalin) 0.3 MG/0.3ML injection, Inject 0.3 mL (0.3 mg) into the shoulder, thigh, or buttocks 1 (one) time for 1 dose, Disp: 1 each, Rfl: 2 escitalopram (Lexapro) 20 MG tablet, TAKE 1 TABLET BY MOUTH EVERY DAY IN THE MORNING, Disp: 30 tablet, Rfl: 2 Uuakgggjirf-Yrcxfybha-Cudisp 100-62.5-25 MCG/ACT aerosol powder , Inhale 1 puff Daily, Disp: 1 each, Rfl: 0 furosemide (Lasix) 20 MG tablet, Take 1 tablet (20 mg) by mouth Daily, Disp: 30 tablet, Rfl: 0 meloxicam (Mobic) 15 MG tablet, Take 1 tablet (15 mg) by mouth Daily, Disp: 30 tablet, Rfl: 2 montelukast (Singulair) 10 MG tablet, Take 1 tablet (10 mg) by mouth at bedtime, Disp: 30 tablet, Rfl: 11 phentermine (Adipex-P) 37.5 MG tablet, Take 1 tablet (37.5 mg) by mouth in the morning. Take before meals., Disp: 30 tablet, Rfl: 0 promethazine (Phenergan) 12.5 MG tablet, Take 1 tablet (12.5 mg) by mouth every 6 (six) hours if needed for nausea or vomiting Take 1 tablet by mouth every 6 hours as needed for nausea., Disp: 30 tablet, Rfl: 2 Vraylar 4.5 MG capsule, TAKE 1 CAPSULE BY MOUTH EVERY DAY, Disp: 30 capsule, Rfl: 5 Social History: Social History Socioeconomic History Marital status: Spouse name: Not on file Number of children: Not on file Years of education: Not on file Highest education level: Not on file Occupational History Not on file Tobacco Use Smoking status: Former Smokeless tobacco: Never Vaping Use Vaping status: Unknown Substance and Sexual Activity Alcohol use: Yes Alcohol/week: 2.0 standard drinks of alcohol Types: 2 Standard drinks or equivalent per week Drug use: Never Sexual activity: Yes Partners: Male control/protection: Female Sterilization Other Topics Concern Not on file Social History Narrative Not on file Social Drivers of Health Financial Resource Strain: Low Risk (04/18/2023) Overall Financial Resource Strain (CARDIA) Difficulty of Paying Living Expenses: Not hard at all Food Insecurity: No Food Insecurity (04/18/2023) Hunger Vital Sign Worried About Running Out of Food in the Last Year: Never true Ran Out of Food in the Last Year: Never true Transportation Needs: No Transportation Needs (04/18/2023) PRAPARE - Transportation Lack of Transportation (Medical): No Lack of Transportation (Non-Medical): No Physical Activity: Inactive (04/18/2023) Exercise Vital Sign Days of Exercise per Week: 0 days Minutes of Exercise per Session: 0 min Stress: Stress Concern Present (04/18/2023) [employer] - Occupational Stress Questionnaire Feeling of Stress : Very much Social Connections: Moderately Integrated (04/18/2023) Social Connection and Isolation Panel [NHANES] Frequency of Communication with Friends and Family: Three times a week Frequency of Social Gatherings with Friends and Family: Twice a week Attends [employer] Services: Never Active Member of Clubs or Organizations: Yes Attends Club or Organization Meetings: 1 to 4 times per year Marital Status: Intimate Partner Violence: Not At Risk (04/18/2023) Humiliation, Afraid, Rape, and Kick questionnaire Fear of Current or Ex-Partner: No Emotionally Abused: No Physically Abused: No Sexually Abused: No Housing Stability: Low Risk (04/18/2023) Housing Stability Vital Sign Unable to Pay for Housing in the Last Year: No Number of Places Lived in the Last Year: 1 Unstable Housing in the Last Year: No ROS: General: denies fever, chills, fatigue, malaise Gastrointestinal: denies abdominal pain, ulcers, or changes in appetite or bowel habits. Positive history of gastroparesis that is slowly improving according to patient Musculoskeletal: denies arthritis, denies loss of strength, pain to hip, knees, back Cardiovascular: denies CP, palpitations, irregular rhythms. Positive history of syncope and had cardiac clearance in the past OBJECTIVE LE EXAM: DERM: Positive hair growth to b/l feet with good skin turgor noted. Negative openings in skin. Minimal edema to lateral aspect of the right ankle VASC: Palpable pedal pulsed b/l with warm to cool tibia to toes b/l NEURO: Gross sensation intact digits 1-10 and b/l feet ORTHO: +5/5 DF/PF/IN/EV right, +5/5 DF/PF/IN/EV left. 20 degrees inversion and 10 degrees eversion STJ b/l. Ankle ROM less than 10 degrees b/l. Positive pain on palpation to right peroneal tendon new distal fibular region Positive palpation anterior right ankle joint Minimal pain on palpation of right ATF with negative anterior drawer Negative pain on palpation to the CFL ligament or to the 5th metatarsal base of the right foot MRI: [place] [address] Magnetic Resonance Report Signed Patient: ORION HARPER MR#: [id number] : 1990 Acct:[id number] Age/Sex: 33 / F ADM Date: 03/14/24 Loc: MRI Attending Dr: Laurie Trujillo M.D. Ordering Physician: Laurie Trujillo M.D. Date of Service: 03/14/24 Procedure(s): MR ankle RT wo con Accession Number(s): [id number] cc: GIOVANI HAGEN ; Laurie Trujillo M.D. [address] [address] Patient Name: ORION HARPER MRN: [facility]:[id number] date: 1990 Sex: F Assigned Patient Location: MRI Current Patient Location: Accession/Order Number: [id number] Exam Date: 03/14/2024 15:04 Report Date: 03/17/2024 09:08 At the request of: LAURIE TRUJILLO Procedure: MR ankle RT wo con HISTORY: Right ankle pain since an injury on 01/10/2024. Pain and swelling along the medial and lateral aspect of the ankle. Sprain of talofibular ligament. MR ankle RT wo con: 03/14/2024 3:04 PM EST COMPARISON: Radiographs right ankle 03/04/2024 and radiographs right foot and ankle 01/10/2024. TECHNIQUE: Multiplanar, multisequence MRI images of the ankle were obtained without contrast. FINDINGS: LIGAMENTS: The anterior talofibular ligament appears grossly intact. However, there is an ovoid well-corticated 6 mm ossific focus again seen along the anteroinferior aspect of the lateral malleolus at the expected attachment of the anterior talofibular ligament as seen on the prior radiographs. The calcaneofibular ligament, posterior talofibular ligament, and distal tibiofibular ligaments appear within normal limits. The deltoid ligament complex appears moderately thickened and of intermediate signal intensity on the proton density fat-saturated sequence. The flexor retinaculum along the medial aspect of the medial malleolus appears moderately thickened and of intermediate signal intensity with a small amount of adjacent soft tissue edema. TENDONS: There is evidence of a moderate grade longitudinal partial-thickness tear involving the posterior aspect of the inframalleolar portion of the peroneus brevis tendon spanning approximately 2.5 cm in length as best seen on the axial oblique proton density fat-saturated images. The other tendons of the ankle appear within normal limits. There is a small amount of fluid within the retromalleolar and inframalleolar portion of the posterior tibialis tendon sheath. SINUS TARSI AND TARSAL TUNNEL: No space-occupying mass is seen in the tarsal tunnel or the sinus tarsi. BONES AND JOINTS: The bone marrow signal intensity is age appropriate. No unstable osteochondral defect of the tibiotalar joint is identified. There is a small tibiotalar joint effusion. There is a small area of decreased T1 and increased STIR signal intensity within the subchondral bone of the medial talar dome. This measures approximately 4 x 7 mm in transverse and AP dimension. No overlying chondral abnormality is seen. There is a moderate amount of bone marrow edema involving the medial aspect of the body and neck of the talus. There is also a small amount of bone marrow edema within the posteromedial aspect of the tibial plafond. There is a small amount of fluid within a joint recess posterior to the posterior subtalar joint. PLANTAR FASCIA: There is no abnormal thickening or abnormal signal intensity of the plantar fascia and there is no surrounding soft tissue edema to suggest plantar fasciitis. MR/MR ankle RT wo con IMPRESSION: 1. There are MRI findings compatible with a moderate grade sprain or avulsion injury of the flexor retinaculum from the medial malleolus with adjacent soft tissue edema in this region. Therefore, the small linear focus of ossification projecting along the medial aspect of the medial malleolus on the prior radiographs is most likely secondary to either a small avulsion fracture or heterotopic ossification in this region. 2. Probable subacute grade 2 sprain of the deltoid ligament complex. The other ligaments of the ankle including the anterior talofibular ligament appear grossly intact. However, there is a 6 mm posttraumatic ossicle again seen along the anteroinferior aspect of the lateral malleolus at the expected attachment of the anterior talofibular ligament compatible with the sequela of remote trauma to this region. 3. There is evidence of a probable low-grade 4 x 7 mm osteochondral injury of the medial talar dome. There are also bone contusions involving the medial aspect of the body and neck of the talus and a small bone contusion of the posteromedial aspect of the tibial plafond. There is an associated small tibiotalar joint effusion. 4. There is a moderate grade longitudinal partial-thickness tear of the posterior aspect of the inframalleolar portion of the peroneus brevis tendon spanning approximately 2.5 cm in length. The other tendons of the ankle appear within normal limits. Electronically authenticated by: MICHAEL CORTES Date: 03/17/2024 09:08 Dictated By: Michael Cortes M.D. Signed By: 03/17/24 0911 ASSESSMENT 1. Peroneal tendon tear, right, initial encounter 2. Sprain of anterior talofibular ligament of right ankle, subsequent encounter 3. Osteochondritis dissecans of ankle, right 4. Severe ankle sprain, right, initial encounter PLAN Patient to continue with oral anti - inflammatories as needed for pain and recommended OTC medications such as tylenol or Ibuprofen Continue with ankle brace Reviewed MRI results today and discussed with patient possible surgical intervention and consultation for possible surgical intervention by Dr. Milton Fraire. Patient was originally scheduled for an ankle arthroscopy as well as peroneal tendon repair to the right ankle. Some discussion of stabilization of the right ankle as well for ankle stabilization procedure. Patient is scheduled for follow up with Dr. Kwon today for possible surgical intervention as deemed necessary if warranted. Prateek Pedraza DPM documented in this encounter [facility] 05-06-2024 Telephone encounter Note Echo was faxed to Anne-Marie @ [phone] & scanned into outside ep. Patient is having a procedure. Criss Mccrary [facility] 05-06-2024 Miscellaneous Notes Echo was faxed to Anne-Marie @ [phone] & scanned into outside ep. Patient is having a procedure. Criss Mccrary documented in this encounter [facility] 05-03-2024 Telephone encounter Note Patient has sig bony edema in the talus which needs to heal prior to surgical intervention. This is minimum of 2 months from time of mri and then needs repeat ankle xrays to confirm healing. Patient unfortunately needs to return in May for repeat xrays and needs to be in cam boot until seen at that time. Lydia Kelley DO [facility] 05-02-2024 Note HNO ID: [id number] Author: ZEHRA GRAY PA-C Service: ? Author Type: Physician Automotive Machinist Apprentice Type: Progress Notes Filed: 05/02/2024 11:34 Note Text: Fibroscan Report Date performed: May 02, 2024 Performed by: Mayela Merino LPN Interpreted by: Zehra Gray PA-C Patient fasted 3 hours:Yes Indication: Elevated LFTs Technical difficulties: None. Result: The reading was adequate. Please refer to get images report for individual readings Number of readings: 10 IQR %: 7 E (kpa): 7.4 CAP: 289 Impression The liver stiffness is 7.4 kPa which corresponds to 91% chance of stage 0-2 fibrosis. The CAP analysis showed grade S2 of liver steatosis. Stage of liver fibrosis based on above kPa: A 91% chance of stage 0-2 fibrosis A 9% chance of stage 3-4 fibrosis (advanced fibrosis) A 1.3% chance of stage 4 fibrosis (cirrhosis). A kPa >20 indicates a high likelihood of stage 4 fibrosis/cirrhosis, consider further testing to confirm and referral to hepatology. FARNAZ Pathak Fibroscan Fibrosis Risk <7 kPA = F0-F2 97%, F3+F4 3%, F4 <1% <10 kPA = F0-F2 91%, F3+F4 9%, F4 1.3% 10-15 kPA = F0-F2 56%, F3+F4 43%, F4 14% >15 kPA = F0-F2 26%, F3+F4 74%, F4 46% Grade CAP value up to 237 dB/M corresponds to S0 (< 10 % Fat) CAP value between (238 - 258 dB/M) corresponds to S1 (>/= 11 % Fat) CAP value between (259 - 289 dB/M) corresponds to S2 (>/= 33 % Fat) CAP value > 290dB/M corresponds to S3 (>/= 67 % Fat) stage 0 ( S0:< 10 % steatosis) stage 1 (>/= S1: 11%-33% steatosis) stage 2 (>/= S2: 34%-66% steatosis) stage 3 (>/= S3: > 66% steatosis) Reference Renard Y, Inocente Q, Glynn T, Gifty J, Glynn H, Carpio T. Controlled attenuation parameter for assessment of hepatic steatosis grades: a diagnostic meta-analysis. Int J Clin Exp Med. 2015 Jan 15;8(10):22284-75. PMID: 23472029; PMCID: [id number]. Ruthann Bob, Juan FANTASMA, Rico M, Cosmo F, Tawnya J, Everardo O, Leyla F, Franci M, Alejandro G, Dorie A, Gianna E, Leyla L, French G, Kashmir A, Vicente U, Jodi S, Franc P, Max V, Last V, Leena M, Neo MARIE. Refining the Baveno elastography criteria for the definition of compensated advanced chronic liver disease. J Hepatol. 2020;74(5):1911-6973. doi: 10.1016/j.jhep.2020.11.050. Epub 2019Apr 01. PMID: 91969483. Izabel M, Chastity B, Martha Bob, Xiao Bob, Joon S, Nuria Roth, Trevin D, Trixie Kendrick. AASLD practice guidance on the clinical assessment and management of nonalcoholic fatty liver disease. Hepatology. 2022;77(5):2444-1917. doi:10.1097/[id number] [facility] 05-02-2024 History of Present illness Narrative Fibroscan Report Date performed: May 02, 2024 Performed by: Mayela Merino LPN Interpreted by: Zehra Gray PA-C Patient fasted 3 hours:Yes Indication: Elevated LFTs Technical difficulties: None. Result: The reading was adequate. Please refer to get images report for individual readings Number of readings: 10 IQR %: 7 E (kpa): 7.4 CAP: 289 Impression The liver stiffness is 7.4 kPa which corresponds to 91% chance of stage 0-2 fibrosis. The CAP analysis showed grade S2 of liver steatosis. Stage of liver fibrosis based on above kPa: A 91% chance of stage 0-2 fibrosis A 9% chance of stage 3-4 fibrosis (advanced fibrosis) A 1.3% chance of stage 4 fibrosis (cirrhosis). A kPa >20 indicates a high likelihood of stage 4 fibrosis/cirrhosis, consider further testing to confirm and referral to hepatology. FARNAZ Pathak Fibroscan Fibrosis Risk <7 kPA = F0-F2 97%, F3+F4 3%, F4 <1% <10 kPA = F0-F2 91%, F3+F4 9%, F4 1.3% 10-15 kPA = F0-F2 56%, F3+F4 43%, F4 14% >15 kPA = F0-F2 26%, F3+F4 74%, F4 46% Grade CAP value up to 237 dB/M corresponds to S0 (< 10 % Fat) CAP value between (238 - 258 dB/M) corresponds to S1 (>/= 11 % Fat) CAP value between (259 - 289 dB/M) corresponds to S2 (>/= 33 % Fat) CAP value > 290dB/M corresponds to S3 (>/= 67 % Fat) stage 0 ( S0:< 10 % steatosis) stage 1 (>/= S1: 11%-33% steatosis) stage 2 (>/= S2: 34%-66% steatosis) stage 3 (>/= S3: > 66% steatosis) Reference Renard Y, Inocente Q, Renard T, Gifty J, Renard H, Balaji T. Controlled attenuation parameter for assessment of hepatic steatosis grades: a diagnostic meta-analysis. Int J Clin Exp Med. 2015 Jan 15;8(10):70903-98. PMID: 78505515; PMCID: [id number]. Ruthann Bob, Juan FANTASMA, Rico M, Cosmo F, Tawnya J, Everardo O, Leyla F, Franci M, Alejandro G, Dorie A, Gianna E, Leyla L, French G, Kashmir A, Vicente U, Jodi S, Franc P, Max V, Last V, Leena M, Neo MARIE. Refining the Baveno elastography criteria for the definition of compensated advanced chronic liver disease. J Hepatol. 2020;74(5):0401-5051. doi: 10.1016/j.jhep.2020.11.050. Epub 2019Apr 01. PMID: 31897374. Izabel Bob, Chastity Moran, Martha Bob, Xiao Bob, Joon S, Nuria Roth, Trevin Roth, Trixie Kendrick. AASLD practice guidance on the clinical assessment and management of nonalcoholic fatty liver disease. Hepatology. 2022;77(5):5372-3265. doi:10.1097/HEP.[id number] documented in this encounter [facility] 04-30-2024 History of Present illness Narrative Reason for Appointment: Patient ID: Orion Harper is a 33 y.o. female who presents for Pre-op Visit (Pt present today for a pre operative visit. Pt is scheduled for a ) Patient presents today for Pre Op appointment. Patient is scheduled to undergo Da Avelino assisted Diagnostic Laparoscopy, possible LEENA, possible FOE, possible BSO on 05/23/[address] Starr at [facility]. MEDICATIONS Current Outpatient Medications Medication Instructions albuterol HFA 90 mcg/act inhaler INHALE 2 PUFFS INTO THE LUNGS EVERY 6 HOURS NEEDED FOR 30 DAYS albuterol 2.5 mg, Nebulization, Every 6 hours PRN ALPRAZolam (XANAX) 0.5 mg, Oral, 2 times daily (12/07) amphetamine-dextroamphetamine XR (Adderall XR) 30 MG 24 hr capsule 30 mg, Oral, Daily, Do not crush or chew. baclofen (LIORESAL) 10 mg, Oral, 3 times daily benzonatate (TESSALON PERLES) 100 mg, Oral, 3 times daily PRN, Do not crush or chew. cephalexin (Keflex) 250 MG capsule TAKE 1 CAPSULE BY MOUTH AFTER INTERCOURSE TO PREVENT UTI diclofenac (Voltaren) 75 MG EC tablet Every 12 hours EPINEPHrine (ADRENALIN) 0.3 mg, Intramuscular, Once escitalopram (LEXAPRO) 20 mg, Oral, Every morning Cwcuzzkfvsp-Vudmjguir-Quqmyj 100-62.5-25 MCG/ACT aerosol powder 1 puff, Inhalation, Daily furosemide (LASIX) 20 mg, Oral, Daily meloxicam (MOBIC) 15 mg, Oral, Daily montelukast (SINGULAIR) 10 mg, Oral, Nightly ondansetron ODT (ZOFRAN-ODT) 4 mg, Oral, Every 6 hours PRN phentermine (ADIPEX-P) 37.5 mg, Oral, Daily before breakfast predniSONE (Deltasone) 10 MG tablet Take 4 tablets (40 mg) by mouth Daily for 4 days, THEN 3 tablets (30 mg) Daily for 4 days, THEN 2 tablets (20 mg) Daily for 4 days, THEN 1 tablet (10 mg) Daily for 4 days. promethazine (PHENERGAN) 12.5 mg, Oral, Every 6 hours PRN, Take 1 tablet by mouth every 6 hours as needed for nausea. Vraylar 4.5 MG capsule 1 capsule, Oral, Daily ALLERGIES Allergies Allergen Reactions Cat Hair Extract Anaphylaxis Iodinated Contrast Media Hives Iodine Itching and Swelling Omnipaque 300: Patient experienced itching on her neck and left side of her face. Also, pt complained of tongue feeling itchy and feels like something is stuck in her throat . Patient received diphenhydramine (Benadryl) Prednisone & Diphenhydramine Other Reaction(s): Unknown PROBLEMS Active Ambulatory Problems Diagnosis Date Noted Tremors of nervous system 09/23/2022 Anxiety 09/23/2022 Attention deficit hyperactivity disorder, predominantly inattentive type (CMS/HCC) 09/23/2022 Bipolar disorder, in partial remission, most recent episode manic (CMS/HCC) 09/23/2022 Diverticular disease of colon 09/23/2022 Dysphagia 09/23/2022 Elevated liver enzymes 09/23/2022 Exercise induced bronchospasm (CMS/HCC) 09/23/2022 Finding of above normal blood pressure 09/23/2022 History of hysterectomy 09/23/2022 Hyperglycemia 09/23/2022 Hypersexuality 09/23/2022 Insomnia 09/23/2022 Irritable bowel syndrome with constipation 09/23/2022 Mild intermittent asthma without complication (CMS/HCC) 09/23/2022 Mood swings 09/23/2022 Nephrolithiasis 09/23/2022 Nonalcoholic steatohepatitis (ENGLISH) 09/23/2022 Other specified abnormal findings of blood chemistry 09/23/2022 Poor concentration 09/23/2022 Sacroiliitis, not elsewhere classified ([facility]) 09/23/2022 Skin pain 09/23/2022 Thyroid enlargement ([facility]) 09/23/2022 Atherosclerosis of aorta ([facility]) 06/16/2020 Atherosclerosis of both carotid arteries 11/16/2020 Atherosclerosis of coronary artery without angina pectoris ([facility]) 05/18/2021 Gastroesophageal reflux disease without esophagitis 07/09/2019 Gastroparesis 11/02/2022 Non-refractory idiopathic generalized epilepsy ([facility]) 11/22/2019 Osteoarthritis of knee 06/14/2019 Hypercholesterolemia ([facility]) 07/01/2021 Recurrent UTI 12/12/2022 Vitamin D deficiency 05/16/2019 Dizziness 12/13/2022 Acute nonintractable headache 12/13/2022 History of COVID-19 02/06/2023 Overweight 02/06/2023 Acute biliary pancreatitis without infection or necrosis 03/21/2023 Calculus of gallbladder without cholecystitis without obstruction 03/23/2023 Cholecystitis 04/18/2023 Encounter for postoperative care 04/18/2023 History of acute pancreatitis 04/18/2023 History of cholecystectomy 04/18/2023 Cough 04/18/2023 Anaphylactic syndrome 04/18/2023 PTSD (post-traumatic stress disorder) ([facility]) 02/24/2015 Tinea 10/03/2023 Weight gain 10/03/2023 Glucose intolerance 10/03/2023 Dyshidrosis 10/03/2023 Encounter for well adult exam without abnormal findings 12/04/2023 Cervical radiculopathy 12/26/2023 Obesity (BMI 35.0-39.9 without comorbidity) 02/06/2024 Localized edema 02/06/2024 Injury of right ankle 02/06/2024 Sprain of anterior talofibular ligament of right ankle 04/01/2024 Pain and swelling of left shoulder 04/03/2024 Asthmatic bronchitis with acute exacerbation ([facility]) 04/16/2024 Snoring 04/16/2024 Resolved Ambulatory Problems Diagnosis Date Noted Abnormal ultrasound 09/23/2022 Diverticulitis 09/23/2022 Diverticulitis of large intestine without perforation or abscess without bleeding 09/23/2022 Maxillary sinusitis 09/23/2022 Sinusitis 09/23/2022 Obesity (BMI 30.0-34.9) 09/23/2022 Sciatica 09/23/2022 Smoker 09/23/2022 Tension headache 09/23/2022 Severe acute respiratory syndrome coronavirus 2 (SARS-CoV-2) detected 11/30/2022 Dysuria 12/12/2022 Urinary frequency 12/12/2022 UTI (urinary tract infection) 12/12/2022 Past Medical History: Diagnosis Date Abnormal computed tomography angiography (CTA) of abdomen and pelvis 03/11/2019 Abnormal LFTs Abnormal liver ultrasound 06/15/2022 Asthma (CMS/HCC) COVID 03/11/2021 Delayed gastric emptying 09/12/2022 Gall stones Gestational hypertension H/O CT scan of chest 07/30/2018 HELLP syndrome History of being hospitalized History of colonoscopy 05/28/2019 History of diagnostic ultrasound 03/23/2018 History of diagnostic ultrasound 12/10/2021 History of esophagogastroduodenoscopy 06/30/2022 History of esophagogastroduodenoscopy 08/31/2022 History of HIDA scan 08/28/2021 History of medical problems 03/18/2020 History of medical problems 08/16/2021 History of medical problems 06/10/2022 Influenza A 05/07/2017 Left ovarian cyst 03/01/2019 Pancreatitis Pap smear for cervical cancer screening 04/20/2022 Post depression (CMS/HCC) HISTORY PAST MEDICAL HISTORY SOCIAL HISTORY Past Medical History: Diagnosis Date Abnormal computed [...] cancer screening 04/20/2022 neg Post depression (CMS/HCC) Social History Tobacco Use Smoking status: Former Smokeless tobacco: Never Vaping Use Vaping status: Unknown Substance Use Topics Alcohol use: Yes Alcohol/week: 2.0 standard drinks of alcohol Types: 2 Standard drinks or equivalent per week Drug use: Never FAMILY HISTORY Family History Problem Relation Name Age of Onset Hypertension Mother Hien Hyperlipidemia Mother Hien No Known Problems Father No Known Problems Daughter No Known Problems Daughter No Known Problems Daughter Migraines Other mother's side Diabetes Maternal Grandmother Analia Accidental Brother Jose Antonio Harper SURGICAL HISTORY Past Surgical History: Procedure Laterality Date SECTION, LOW TRANSVERSE 2012,2013, 2017 CHOLECYSTECTOMY 03/23/2023 Laporoscopic COLONOSCOPY 05/11/2018 Dr. Padgett COLONOSCOPY 05/28/[address] [facility] [address] Peter CT ANGIOGRAM CHEST 07/30/2018 CT ANGIOGRAM CHEST [facility] EGD 06/30/2022 Normal hypopharynx, normal esophagus, gastritis, Non bleeding gastric ulcers. Normal examined duodenum GALLBLADDER SURGERY 03/2023 HYSTERECTOMY PAP SMEAR 04/15/2021 normal PARTIAL HYSTERECTOMY 05/2016 PELVIC LAPAROSCOPY 02/10/2023 REVIEW OF SYSTEMS Review of Systems: Review of Systems Constitutional: Negative. HENT: Negative. Eyes: Negative. Respiratory: Negative. Cardiovascular: Negative. Gastrointestinal: Negative. Genitourinary: Positive for dyspareunia and pelvic pain. Musculoskeletal: Negative. Skin: Negative. Neurological: Negative. All other systems reviewed and are negative. Hematological: Negative. Endocrine: Negative. Allergic/Immunologic: Negative. OBJECTIVE Objective: Physical Exam Constitutional: Appearance: Normal appearance. She is well-developed. Cardiovascular: Rate and Rhythm: Normal rate and regular rhythm. Pulmonary: Effort: Pulmonary effort is normal. Breath sounds: Normal breath sounds. Abdominal: General: Bowel sounds are normal. There is no distension. Palpations: Abdomen is soft. Tenderness: There is no abdominal tenderness. There is no guarding or rebound. Musculoskeletal: General: No swelling. Normal range of motion. Right lower leg: No edema. Left lower leg: No edema. Neurological: Mental Status: She is alert and oriented to person, place, and time. Skin: General: Skin is warm and dry. Psychiatric: Mood and Affect: Mood normal. Behavior: Behavior normal. Vitals and nursing note reviewed. Exam conducted with a handtools repairer present. Vitals: Estimated body mass index is 35.12 kg/m as calculated from the following: Height as of 24: 5' 2 . Weight as of this encounter: 192 lb. BP: 122/74 No LMP recorded (lmp unknown). Patient has had a hysterectomy. ASSESSMENT & PLAN ICD-10-CM 1. Pre-op evaluation Z01.818 2. H/O female dyspareunia Z87.42 3. Pelvic pain R10.2 4. Other endometriosis N80.8 5. H/O: hysterectomy Z90.710 Pre Op: Patient is doing well but has complaints of dyspareunia, pelvic pain, pain from endometriosis, pt has had hysterectomy. I have discussed conservative management vs. surgical management with the patient in detail and patient desires surgical management at this time. Patient will undergo Da Avelino assisted Diagnostic Laparoscopy, possible LEENA, possible FOE, possible BSO on 05/23/24. Surgical consents were signed, mmc was reviewed, and patient is to proceed to [facility] OR. Follow Up: Patient is to follow up between 1-2 weeks post operative to assess proper healing and recovery from procedure. Documented by Sandy Toribio LPN on behalf of: Darwin Starr DO documented in this encounter [facility] 04-26-2024 History of Present illness Narrative DEPARTMENT OF GASTROENTEROLOGY - FOLLOW UP REASON FOR VISIT Orion Harper is a 33 year old female who is scheduled for follow up of elevated LFTs HISTORY OF PRESENT ILLNESS Orion Harper is a 33 year old female who presents today for follow up of elevated LFTs. Patient reports she has had elevated liver enzymes for the past several years. She reports she saw Dr. Hylton in 2021 in [facility]. 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 She to lose weight. She was on Wegovy but this caused gastroparesis therefore it was stopped. She is currently on phentermine to work to lose weight. She denies IV drug use, family history of liver disease, abdominal distention, sleep-wake cycle reversal, confusion, and gym. She reports over the past month she has been experiencing BRBPR every couple of days with a bowel movement. She has also noted looser BM, but not diarrhea. This has never happened to her before. She has abdominal pain thought to be related to her bladder and is scheduled for surgery with urology per her report; thought to be related to scar tissue. She denies dysphagia. Does note GERD and was recently started on PPI 2 weeks ago. She has noticed some improvement but not completely resolved. Pertinent Workup to Date: 05/[address] Peter ASSESSMENT/PLAN: 1. Fatty liver - ICD9: 571.8, [...] follow up with Dr. Hylton who is knowledge engineer We discussed seeing endocrinology to help [...] CXR results - XR CHEST 2V FRONTAL/LAT Also seen by Dr. Corey for GP 09/2022 labs AST:47, ALT:114, otherwise WNL. 08/2022 EGD - Normal hypopharynx. - Normal esophagus. - Z-line regular, 37 cm from the incisors. - Possible Gastroparesis. Retained food in the stomach - Normal examined duodenum. Biopsied. - Biopsies performed in the gastric antrum and in the gastric body. - Previously seen gastric ulcers had healed Recommendation: - Await pathology results. - Use Protonix (pantoprazole) 40 mg PO daily for 3 months then 20mg daily - Gastroparesis diet. - Do a gastric emptying study at appointment to be scheduled. - Miralax 1 capful (17 grams) in 8 ounces of water PO daily. - Align one capsule by mouth once a day - Return to my office in 4-6 months. - Discharge patient to home (ambulatory). Colonoscopy 05/2019 - The examined portion of the ileum was normal. Biopsied. - Mild diverticulosis in the sigmoid colon. There was no evidence of diverticular bleeding. - Internal hemorrhoids. - The examination was otherwise normal. - Biopsies performed in the right colon and in the left colon. Recommendation: - Await pathology results. - High fiber diet. - Continue present medications. - Use fiber, for example Citrucel, Fibercon, Konsyl or Metamucil. - Align one capsule by mouth once a day - Return to my office in 6 months. - Discharge patient to home (ambulatory). MRI abdomen w/o contrast Ill-defined peripancreatic fluid and edema, in keeping with the reported history of pancreatitis. Trace fluid is seen extending inferiorly into the pericolic gutters. Mild biliary ductal dilatation is seen. Subtle areas of T2 hypointense signal change are seen in the common duct, with flow related artifact from bile favored as the most likely etiology rather than retained common duct stone Narrative I have personally reviewed labs, current medication, allergies, PMH, PSH, family history and social history. Pertinent information has been listed above. Denies Family hx CRC, IBD, celiac Denies Smoking, etoh, illicits, NSAIDs PAST MEDICAL HISTORY Diagnosis Date Asthma Bipolar disorder (HCC) Diverticulitis 2017 IBS (irritable bowel syndrome) PAST SURGICAL HISTORY Procedure Laterality Date SECTION HX COLONOSCOPY 04/2018 IBS-c COLONOSCOPY SCREENING 2019 EGD DIAGNOSTIC 2022 HYSTEROSCOPY, DIAGNOSTIC (SEPARATE Allergies: Iv Contrast [Iodine] Swelling, Itching Comment:Omnipaque 300: Patient experienced itching on her neck and left side of her face. Also, pt complained of tongue feeling itchy and feels like something is stuck in her throat . Patient received diphenhydramine (Benadryl) Omnipaque [Iohexol] Itching Current Outpatient Medications Medication Sig Dispense Refill Phentermine HCl 37.5 mg tablet Take 37.5 mg by mouth. escitalopram oxalate (LEXAPRO) 20 mg tablet Take 20 mg by mouth every morning. amphetamine-dextroamphetamine XR (ADDERALL XR) 30 mg capsule Take 30 mg by mouth once daily. ALPRAZolam (XANAX) 0.5 mg tablet Take 0.25 mg by mouth two times a day. 0 cariprazine (VRAYLAR) 4.5 mg capsule Take 4.5 mg by mouth once daily. No current facility-administered medications for this visit. Social History Tobacco Use Smoking status: Never Smokeless tobacco: Never Vaping Use Vaping status: Never Used Substance Use Topics Alcohol use: Yes Comment: socially Drug use: Never FAMILY HISTORY Problem Relation Age of Onset other (heart murmur) Brother Colon Cancer Maternal Grandfather started in the kidney other (murmur) Maternal Aunt REVIEW OF SYSTEMS Cardiovascular: No chest pain Respiratory: Negative for cough, wheezing and shortness of breath Gastrointestinal : See above Psychiatric: No problems PHYSICAL EXAMINATION BP 133/92 Pulse 84 Wt 84 kg (185 lb 3 oz) BMI 33.87 kg/m Constitutional: well nourished, well appearing. NAD. Alert and cooperative Skin: no jaundice Eyes: anicteric, normal conjunctiva ENT: MMM Pulmonary: easy and nonlabored on RA Abdomen: soft, NT, ND. No ascites. MSK: MAEx4 Extremities: no edema Neuro: aaox3. No asterixis. Psych: appropriate mood and behavior Lab Results Component Value Date WBC 7.92 04/12/2019 HCT 40.5 04/12/2019 MCV 96.0 04/12/2019 PLT 189 04/12/2019 Lab Results Component Value Date NA 140 04/12/2019 K 4.1 04/12/2019 CO2 22 04/12/2019 BUN 19 04/12/2019 Lab Results Component Value Date ALT 50 (H) 04/12/2019 AST 31 04/12/2019 ALKPHOS 89 04/12/2019 Assessment IMPRESSION Ms. 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 Plan for colonoscopy to evaluate further for BRBPR. She will also have chronic liver disease work up completed and repeat fibroscan ordered. PLAN -Chronic liver disease work up -Colonoscopy -Fibroscan Iliana Mercado PA-C documented in this encounter [facility] 04-26-2024 Note HNO ID: [id number] Author: ILIANA MERCADO PA-C Service: ? Author Type: Physician Automotive Machinist Apprentice Type: Progress Notes Filed: 04/26/2024 15:02 Note Text: DEPARTMENT OF GASTROENTEROLOGY - FOLLOW UP REASON FOR VISIT Orion Harper is a 33 year old female who is scheduled for follow up of elevated LFTs HISTORY OF PRESENT ILLNESS Orion Harper is a 33 year old female who presents today for follow up of elevated LFTs. Patient reports she has had elevated liver enzymes for the past several years. She reports she saw Dr. Hylton in 2021 in [facility]. 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 She to lose weight. She was on Wegovy but this caused gastroparesis therefore it was stopped. She is currently on phentermine to work to lose weight. She denies IV drug use, family history of liver disease, abdominal distention, sleep-wake cycle reversal, confusion, and gym. She reports over the past month she has been experiencing BRBPR every couple of days with a bowel movement. She has also noted looser BM, but not diarrhea. This has never happened to her before. She has abdominal pain thought to be related to her bladder and is scheduled for surgery with urology per her report; thought to be related to scar tissue. She denies dysphagia. Does note GERD and was recently started on PPI 2 weeks ago. She has noticed some improvement but not completely resolved. Pertinent Workup to Date: 05/[address] Peter ASSESSMENT/PLAN: 1. Fatty liver - ICD9: 571.8, [...] follow up with Dr. Hylton who is knowledge engineer We discussed seeing endocrinology to help [...] CXR results - XR CHEST 2V FRONTAL/LAT Also seen by Dr. Corey for GP 09/2022 labs AST:47, ALT:114, otherwise WNL. 08/2022 EGD - Normal hypopharynx. - Normal esophagus. - Z-line regular, 37 cm from the incisors. - Possible Gastroparesis. Retained food in the stomach - Normal examined duodenum. Biopsied. - Biopsies performed in the gastric antrum and in the gastric body. - Previously seen gastric ulcers had healed Recommendation: - Await pathology results. - Use Protonix (pantoprazole) 40 mg PO daily for 3 months then 20mg daily - Gastroparesis diet. - Do a gastric emptying study at appointment to be scheduled. - Miralax 1 capful (17 grams) in 8 ounces of water PO daily. - Align one capsule by mouth once a day - Return to my office in 4-6 months. - Discharge patient to home (ambulatory). Colonoscopy 05/2019 - The examined portion of the ileum was normal. Biopsied. - Mild diverticulosis in the sigmoid colon. There was no evidence of diverticular bleeding. - Internal hemorrhoids. - The examination was otherwise normal. - Biopsies performed in the right colon and in the left colon. Recommendation: - Await pathology results. - High fiber diet. - Continue present medications. - Use fiber, for example Citrucel, Fibercon, Konsyl or Metamucil. - Align one capsule by mouth once a day - Return to my office in 6 months. - Discharge patient to home (ambulatory). MRI abdomen w/o contrast Ill-defined peripancreatic fluid and edema, in keeping with the reported history of pancreatitis. Trace fluid is seen extending inferiorly into the pericolic gutters. Mild biliary ductal dilatation is seen. Subtle areas of T2 hypointense signal change are seen in the common duct, with flow related artifact from bile favored as the most likely etiology rather than retained common duct stone Narrative I have pers (more content not included)... [facility] 04-26-2024 Instructions Iliana Mercado PA-C - 04/26/2024 2:23 PM EST Thank you for seeing me in clinic today. It was very nice to meet you! As we discussed, my recommendations are as follows: Have labs completed Have fibroscan completed with our office Schedule colonoscopy Begin using 2 teaspoons of soluble fiber (e.g. Metamucil, Benefiber or Citrucel) in 12 oz of water every day. Stir until fiber has dissolved. If fiber is well-tolerated but does not completely regulate bowel movements after 1 week, add another teaspoon of fiber for a total of 3 teaspoons per day. Fiber works best if you are hydrated. Be sure to drink at least 64 oz of water every day. If you have any questions about the above treatment plan, please do not hesitate to send me a [employer] message or call. Iliana Mercado PA-C documented in this encounter [facility] 04-26-2024 Note HNO ID: [id number] Author: LYDIA KELLEY, DO Service: ? Author Type: Physician Type: Progress Notes Filed: 05/09/2024 13:33 Note Text: Reason for Visit/Chief Complaint Orion Harper is a 33 year old female who presents today for a new evaluation of following complaint: Patient presents with: Right Ankle - New, Pain, Swelling History of Present Illness: PAIN EVALUATION 04/24/2024 1950 Pain Location: Ankle-Right Description: Aching;Sharp;Shooting;Sore;Throbbing Duration Amount of Time: 1 Duration Units: Days Frequency: Intermittent Intervention/Comfort measure: Medication;Relaxation HPI: Orion Harper is a 33 year old female presenting today with right ankle pain. Patient has been experiencing ankle pain since 01/10/2024 when she sustained a fall down 3 steps. She has been seen by two other physicians and is here for a third opinion. She had images completed. Pain history is noted as above. Denies calf pain, numbness, tingling, fever, chills or other constitutional symptoms. Has cardiac issues and states other hospitals will not clear her. Previous Treatments: Ice: Yes Heat: No Brace: No NSAIDs: Yes, currently taking Vicodin. Injections: No Surgeries: No Physical Therapy: Yes Review of Systems: Patient did not have, and does not currently have, any weight loss, malaise, fever, chills, headache, chest pain, chest pressure, palpitations, cough, shortness of breath, orthopnea, paroxsymal nocturnal dyspnea, nausea, vomiting, diarrhea, constipation, melena, hematochezia, urinary difficulties, prolonged bleeding, easily bruising, heat or cold intolerance, new onset joint pain or swelling, new onset extremity weakness or numbness, new onset auditory or visual disturbances, lightheadedness, dizziness, partial loss of consciousness or full loss of consciousness. Current Outpatient Medications on File Prior to Visit Medication Sig - amphetamine-dextroamphetamine XR (ADDERALL XR) 30 mg capsule Take 30 mg by mouth once daily. - ALPRAZolam (XANAX) 0.5 mg tablet Take 0.25 mg by mouth two times a day. - cariprazine (VRAYLAR) 4.5 mg capsule Take 4.5 mg by mouth once daily. No current facility-administered medications on file prior to visit. ALLERGIES Allergen Reactions - Iv Contrast [Iodine] Swelling, Itching Omnipaque 300: Patient experienced itching on her neck and left side of her face. Also, pt complained of tongue feeling itchy and feels like something is stuck in her throat . Patient received diphenhydramine (Benadryl) - Omnipaque [Iohexol] Itching Physical Exam: Vitals: There were no vitals taken for this visit. Psych: Pleasant, good affect and mood General Appearance: Well appearing, alert, in no acute distress, well-hydrated, well nourished.. Skin: Skin color, texture, turgor normal, no suspicious rashes or lesions. Peripheral Pulses: Normal. Neurologic: Gait normal. Reflexes normal and symmetric. Sensation grossly intact.. Lymph Nodes: No cervical lymphadenopathy, No supraclavicular lymphadenopathy, No axillary lymphadenopathy., and No inguinal lymphadenopathy.. Respiratory: No recent pulmonary infection, hemoptysis, chronic cough, or shortness of breath at rest Rheumatologic: Joint deformities: right ankle pain Right Ankle Exam Tenderness The patient is experiencing tenderness in the ATF. Range of Motion The patient has normal right ankle ROM. Dorsiflexion: normal Plantar flexion: normal Eversion: normal Inversion: normal Muscle Strength Dorsiflexion: 5/5 Plantar flexion: 5/5 Anterior tibial: 5/5 Posterior tibial: 5/5 Gastrocsoleus: 5/5 Peroneal muscle: 5/5 Tests Anterior drawer: 2+ Varus tilt: negative Other Erythema: absent Sensation: normal Pulse: present Comments: Neg homans sign Left Ankle Exam Left ankle exam is normal. Tenderness The patient is experiencing no tenderness. Range of Motion The patient has normal left ankle ROM. Dorsiflexion: normal Plantar flexion: normal Eversion: normal Inversion: normal Muscle Strength Dorsiflexion: 5/5 Plantar flexion: 5/5 Anterior tibial: 5/5 Posterior tibial: 5/5 Gastrocsoleus: 5/5 Peroneal muscle: 5/5 Tests Anterior drawer: negative Varus tilt: negative Other Erythema: absent Sensation: normal Pulse: present Imaging: awaiting for charts from [facility] with images and MRI report Assessment and Plan: Impression: Encounter Diagnosis ICD-10-CM 1. Sprain of anterior talofibular ligament of right ankle, initial encounter S93.491A Plan: Patient has pain and swelling of right ankle recalcitrant to conservative txt options I need imaging studies to eval for right ankle surgical procedure decision making and plan Will review imges and discuss with pt Addendum Reviewed imaging studies has talar contusion and needs to wait at least 6 week prior to surgical intervention and needs to return to discuss consent (more content not included)... [facility] 04-26-2024 History of Present illness Narrative Images from the original note were not included. Reason for Visit/Chief Complaint Orion Harper is a 33 year old female who presents today for a new evaluation of following complaint: Patient presents with: Right Ankle - New, Pain, Swelling History of Present Illness: PAIN EVALUATION 04/24/2024 1950 Pain Location: Ankle-Right Description: Aching;Sharp;Shooting;Sore;Throbbing Duration Amount of Time: 1 Duration Units: Days Frequency: Intermittent Intervention/Comfort measure: Medication;Relaxation HPI: Oriontuyet Harper is a 33 year old female presenting today with right ankle pain. Patient has been experiencing ankle pain since 01/10/2024 when she sustained a fall down 3 steps. She has been seen by two other physicians and is here for a third opinion. She had images completed. Pain history is noted as above. Denies calf pain, numbness, tingling, fever, chills or other constitutional symptoms. Has cardiac issues and states other hospitals will not clear her. Previous Treatments: Ice: Yes Heat: No Brace: No NSAIDs: Yes, currently taking Vicodin. Injections: No Surgeries: No Physical Therapy: Yes Review of Systems: Patient did not have, and does not currently have, any weight loss, malaise, fever, chills, headache, chest pain, chest pressure, palpitations, cough, shortness of breath, orthopnea, paroxsymal nocturnal dyspnea, nausea, vomiting, diarrhea, constipation, melena, hematochezia, urinary difficulties, prolonged bleeding, easily bruising, heat or cold intolerance, new onset joint pain or swelling, new onset extremity weakness or numbness, new onset auditory or visual disturbances, lightheadedness, dizziness, partial loss of consciousness or full loss of consciousness. Current Outpatient Medications on File Prior to Visit Medication Sig amphetamine-dextroamphetamine XR (ADDERALL XR) 30 mg capsule Take 30 mg by mouth once daily. ALPRAZolam (XANAX) 0.5 mg tablet Take 0.25 mg by mouth two times a day. cariprazine (VRAYLAR) 4.5 mg capsule Take 4.5 mg by mouth once daily. No current facility-administered medications on file prior to visit. ALLERGIES Allergen Reactions Iv Contrast [Iodine] Swelling, Itching Omnipaque 300: Patient experienced itching on her neck and left side of her face. Also, pt complained of tongue feeling itchy and feels like something is stuck in her throat . Patient received diphenhydramine (Benadryl) Omnipaque [Iohexol] Itching Physical Exam: Vitals: There were no vitals taken for this visit. Psych: Pleasant, good affect and mood General Appearance: Well appearing, alert, in no acute distress, well-hydrated, well nourished.. Skin: Skin color, texture, turgor normal, no suspicious rashes or lesions. Peripheral Pulses: Normal. Neurologic: Gait normal. Reflexes normal and symmetric. Sensation grossly intact.. Lymph Nodes: No cervical lymphadenopathy, No supraclavicular lymphadenopathy, No axillary lymphadenopathy., and No inguinal lymphadenopathy.. Respiratory: No recent pulmonary infection, hemoptysis, chronic cough, or shortness of breath at rest Rheumatologic: Joint deformities: right ankle pain Right Ankle Exam Tenderness The patient is experiencing tenderness in the ATF. Range of Motion The patient has normal right ankle ROM. Dorsiflexion: normal Plantar flexion: normal Eversion: normal Inversion: normal Muscle Strength Dorsiflexion: 5/5 Plantar flexion: 5/5 Anterior tibial: 5/5 Posterior tibial: 5/5 Gastrocsoleus: 5/5 Peroneal muscle: 5/5 Tests Anterior drawer: 2+ Varus tilt: negative Other Erythema: absent Sensation: normal Pulse: present Comments: Neg homans sign Left Ankle Exam Left ankle exam is normal. Tenderness The patient is experiencing no tenderness. Range of Motion The patient has normal left ankle ROM. Dorsiflexion: normal Plantar flexion: normal Eversion: normal Inversion: normal Muscle Strength Dorsiflexion: 5/5 Plantar flexion: 5/5 Anterior tibial: 5/5 Posterior tibial: 5/5 Gastrocsoleus: 5/5 Peroneal muscle: 5/5 Tests Anterior drawer: negative Varus tilt: negative Other Erythema: absent Sensation: normal Pulse: present Imaging: awaiting for charts from [facility] with images and MRI report Assessment and Plan: Impression: Encounter Diagnosis ICD-10-CM 1. Sprain of anterior talofibular ligament of right ankle, initial encounter S93.491A Plan: Patient has pain and swelling of right ankle recalcitrant to conservative txt options I need imaging studies to eval for right ankle surgical procedure decision making and plan Will review imges and discuss with pt Addendum Reviewed imaging studies has talar contusion and needs to wait at least 6 week prior to surgical intervention and needs to return to discuss consent Patient aware and in agreement of plan. All questions answered. Today, in detail, through a thorough evaluation, we discussed possible etiologies of pain and our plans for further diagnostic and therapeutic interventions. We discussed strategies for decreasing pain and improving strength, stability and motion. Patient's questions were answered in detailed. Patient verbalizes understanding and agrees with the treatment plan as discussed. Lydia Kelley D.O. M.P.H. documented in this encounter [facility] 04-22-2024 Telephone encounter Note Patient states she was seen in office on 04-16 and then later in the week she ended up at the Urgent Care due to her cough. She would like Eva Pearls called in for her cough. [facility] 04-22-2024 Miscellaneous Notes Patient states she was seen in office on 04-16 and then later in the week she ended up at the Urgent Care due to her cough. She would like Eva Pearls called in for her cough. documented in this encounter [facility] 04-18-2024 History of Present illness Narrative Images from the original note were not included. [address] , [address] [facility], [address] P: [phone] F: [phone] HPI Historian of HPI: patient Orion Harper is a 33 y.o. female who presents today to the Urgent Care with the following complaints and denials which have been present for 2 week(s) C/O Denies Symptom Comments [x] [] Runny Nose Mornings [] [x] Difficulty Swallowing [x] [] Sore Throat [x] [] Cough [] [x] Ear Pain [] [x] Fever [] [x] Chills [x] [] Nasal Congestion mornings [] [x] Myalgia [] [x] Sinus Pain [] [x] Sinus Pressure Additional Comments: pt has taken inhaler, dayquil, nyquil, motrin OTC medication without relief Pt stated her doc told her its just her asthma. Pt stated she is taking Keflex for UTI. Pt stopped her doxy on Monday for a bladder infection. Verified atb dose with pt and states she is on keflex 250mg daily for prevention of UTI. Pt saw her PCP on 04/16 and was rx a steroid that she states she has not noticed improvement with. ROS A complete system ROS was performed and negative aside from the pertinent positives noted in the HPI and PE. PHYSICAL EXAM Examination General Examination: General Examination: in no acute distress, well developed, well nourished Head: normocephalic, atraumatic Eyes: no discharge Ears: BOTH EARS canals normal. TM intact and clear bilat. Nose: swollen turbinates. Clear nasal discharge bilat. Oral Cavity: mucosa moist Throat: pharynx with erythema and PND. No trismus, muffled voice, drooling or protrusion of soft palate. Uvula midline Neck/Thyroid: neck supple, trachea midline Lymph Nodes: no cervical adenopathy Skin: warm and dry Heart: S1, S2 normal, regular rate and rhythm, no S3, S4, no murmurs, rubs, gallops Lungs: clear anteriorly and posteriorly, clear to auscultation bilaterally, good air movement, no wheezes, rales, rhonchi Chest: normal shape and expansion, normal anteroposterior (AP) diameter Psych: alert, oriented. TREATMENT PLAN 1. Acute bronchitis with asthma (CMS/HCC) (Primary) Stop low dose keflex and start ceftin-see rx, continue with prednisone rx by PCP that pt states she is tolerating. Continue with inhalers. Immediate eval if new, worsening or warning s/s otherwise must follow up with PCP over next 5-7 days for recheck, - cefuroxime (Ceftin) 500 MG tablet; Take 1 tablet (500 mg) by mouth in the morning and 1 tablet (500 mg) before bedtime. Do all this for 10 days. Dispense: 20 tablet; Refill: 0 documented in this encounter [facility] 04-08-2024 Telephone encounter Note For surgical clearance regular echo is ok. After she recovers from ankle surgery would still like her to schedule an exercise ECG stress to determine if her episode of passing out is arrhythmic or if there is any QT interval changes with exercise. No need for stress echo or nuclear stress right now if she is unable to do the treadmill [facility] Work Phone: 04-08-2024 Miscellaneous Notes For surgical clearance regular echo is ok. After she recovers from ankle surgery would still like her to schedule an exercise ECG stress to determine if her episode of passing out is arrhythmic or if there is any QT interval changes with exercise. No need for stress echo or nuclear stress right now if she is unable to do the treadmill documented in this encounter [facility] 04-05-2024 Telephone encounter Note Outside ep I have a copy @ my desk Criss Mccrary [facility] 04-05-2024 Miscellaneous Notes Outside ep I have a copy @ my desk Criss Mccrary documented in this encounter [facility] 04-03-2024 History of Present illness Narrative Images from the original note were not included. Subjective Patient ID: Orion Harper is a 33 y.o. female who presents for ER F/U of high BP Orion presents today for an ER F/U for high BP. Current Outpatient Medications on File Prior to Visit Medication Sig Dispense Refill albuterol HFA 90 mcg/act inhaler INHALE 2 PUFFS INTO THE LUNGS EVERY 6 HOURS NEEDED FOR 30 DAYS amphetamine-dextroamphetamine XR (Adderall XR) 30 MG 24 hr capsule Take 1 capsule (30 mg) by mouth Daily Do not crush or chew. 30 capsule 0 baclofen (Lioresal) 10 MG tablet Take 1 tablet (10 mg) by mouth in the morning and 1 tablet (10 mg) in the evening and 1 tablet (10 mg) before bedtime. 90 tablet 0 cephalexin (Keflex) 250 MG capsule TAKE 1 CAPSULE BY MOUTH AFTER INTERCOURSE TO PREVENT UTI clonazePAM (KlonoPIN) 0.5 MG tablet Take 1 tablet (0.5 mg) by mouth in the morning and 1 tablet (0.5 mg) before bedtime. 60 tablet 0 diclofenac (Voltaren) 75 MG EC tablet every 12 (twelve) hours doxycycline (Vibramycin) 100 MG capsule Take 1 capsule (100 mg) by mouth in the morning and 1 capsule (100 mg) before bedtime. Take with at least 8 ounces (large glass) of water, do not lie down for 30 minutes after. 120 capsule 0 EPINEPHrine (Adrenalin) 0.3 MG/0.3ML injection Inject 0.3 mL (0.3 mg) into the shoulder, thigh, or buttocks 1 (one) time for 1 dose 1 each 2 escitalopram (Lexapro) 20 MG tablet TAKE 1 TABLET BY MOUTH EVERY DAY IN THE MORNING 30 tablet 2 Oxmuisxboae-Oacfqbspf-Kqsvle 100-62.5-25 MCG/ACT aerosol powder INHALE 1 PUFF INTO THE LUNGS EVERY DAY FOR 30 DAYS furosemide (Lasix) 20 MG tablet Take 1 tablet (20 mg) by mouth Daily 30 tablet 0 meloxicam (Mobic) 15 MG tablet Take 1 tablet (15 mg) by mouth Daily 30 tablet 2 montelukast (Singulair) 10 MG tablet Take 1 tablet (10 mg) by mouth at bedtime 30 tablet 11 ondansetron ODT (Zofran-ODT) 4 MG disintegrating tablet Take 1 tablet (4 mg) by mouth every 6 (six) hours if needed for nausea or vomiting 30 tablet 2 phentermine (Adipex-P) 37.5 MG tablet Take 1 tablet (37.5 mg) by mouth in the morning. Take before meals. 30 tablet 0 [] traMADol (Ultram) 50 MG tablet Take 2 tablets (100 mg) by mouth every 6 (six) hours if needed for severe pain for up to 5 days 40 tablet 0 Vraylar 4.5 MG capsule TAKE 1 CAPSULE BY MOUTH EVERY DAY 30 capsule 5 [DISCONTINUED] ALPRAZolam (Xanax) 0.5 MG tablet Take 1 tablet (0.5 mg) by mouth in the morning and in the evening 60 tablet 0 No current facility-administered medications on file prior [...] [place] COLONOSCOPY 05/28/[address] [facility] [address] ANGIOGRAM CHEST 07/30/2018 CT ANGIOGRAM CHEST [facility] EGD 06/30/2022 Normal hypopharynx, normal esophagus, gastritis, Non bleeding gastric ulcers. Normal examined duodenum GALLBLADDER SURGERY 03/2023 HYSTERECTOMY PAP SMEAR 04/15/2021 normal PARTIAL HYSTERECTOMY 05/2016 PELVIC LAPAROSCOPY 02/10/2023 Visit Vitals LMP (LMP Unknown) Comment: partial hysterectomy 05/2016 OB Status Hysterectomy Smoking Status Former Review of Systems Constitutional: Negative. HENT: Negative. Eyes: Negative. Respiratory: Negative. Cardiovascular: Negative. Gastrointestinal: Negative. Genitourinary: Negative. Musculoskeletal: Pain in foot Skin: Negative. Neurological: Negative. Psychiatric/Behavioral: Negative. All other systems reviewed and are negative. Endocrine: Negative. Objective Physical Exam Vitals and nursing note reviewed. Constitutional: Appearance: Normal appearance. HENT: Head: Normocephalic. Right Ear: Tympanic membrane normal. Left Ear: Tympanic membrane normal. Nose: Nose normal. Mouth/Throat: Mouth: Mucous membranes are moist. Pharynx: Oropharynx is clear. Eyes: Pupils: Pupils are equal, round, and reactive to light. Cardiovascular: Rate and Rhythm: Normal rate and regular rhythm. Pulmonary: Effort: Pulmonary effort is normal. Breath sounds: Normal breath sounds. Abdominal: General: Bowel sounds are normal. Palpations: Abdomen is soft. Musculoskeletal: General: Tenderness present. Cervical back: Neck supple. Comments: Left shoulder tenderness Skin: General: Skin is warm and dry. Neurological: General: No focal deficit present. Mental Status: She is alert and oriented to person, place, and time. Psychiatric: Mood and Affect: Mood normal. Behavior: Behavior normal. Thought Content: Thought content normal. Judgment: Judgment normal. Assessment/Plan Diagnoses and all orders for this visit: Hypokalemia - Potassium; Future Await lab. Will supplement pt if the potassium is off. Elevated blood sugar - Hemoglobin A1c; Future Await lab. Pt had an elevated fasting glucose last blood draw at the hospital. Pre-operative clearance The patient was interviewed and examined. The patient's medical history and medications were reviewed. Patient is to follow guidance of surgical team regarding all medications. There are no uncontrolled medical problems at present. Patient is active and has no chest pain or dyspnea. All available PAT was reviewed. There are no medical contraindications for surgery noted at this time, and the patient is considered low risk for the planned upcoming procedure. The patient is cleared for surgery without additional testing. Acute eft shoulder pain Had 6 weeks of therapy and has not had any improvement. Will order MRI for further evaluation. No follow-ups on file. documented in this encounter [facility] 04-02-2024 Telephone encounter Note This 'Ankle Surgery Clearance' was faxed over to Dr. Giovani Hagen (PCP) @ [phone] for signing. I spoke with the patient. Scanned into outside ep. Criss Mccrary [facility] 04-02-2024 Miscellaneous Notes This 'Ankle Surgery Clearance' was faxed over to Dr. Giovani Hagen (PCP) @ [phone] for signing. I spoke with the patient. Scanned into outside ep. Criss Mccrary documented in this encounter [facility] 04-01-2024 Miscellaneous Notes Pt called to schedule, per message below. First Est slot is July 26 for VV. Please review and advise if a New Pt slot can be used for this Pt. Thank you, I saw her in the past for this Per my note, Was seen by Dr. Hylton locally Will obtain labs and fibroscan results She had Nausea and vomiting with statin Couldn't tolerate metformin due to nausea/vomiting and diarrhea She can still follow up with Dr. Hylton who is knowledge engineer We discussed seeing endocrinology to help with weight loss and insulin resistance We also discussed cutting back on ETOH to one drink a week (currently 3-4 drinks a week) Did she follow up with Dr. Hylton? She can schedule OV with me if she prefers Dr. Peter, Pt JESSE Dx Fatty Liver, Liver Disease PT sent MYC message requesting a follow up labs show elevated LFTs and wanted them reviewed Please advise Thanks, Connie Lucas RN contains abnormal data [facility] LIVER PANEL Component Ref Range & Units 3 mo ago BILIRUBIN TOTAL 0.2 - 1.0 mg/dL 0.7 BILIRUBIN DIRECT 0.0 - 0.2 mg/dL 0.1 ASPARTATE AMINO TRANSFERASE 15 - 37 U/L 47 High ALANINE AMINOTRANSFERASE 14 - 59 U/L 114 High ALKALINE PHOSPHATASE 46 - 116 U/L 105 TOTAL PROTEIN 6.4 - 8.2 g/dL 7.4 ALBUMIN LEVEL 3.4 - 5.0 g/dL 4.2 GLOBULIN g/dL 3.2 ALBUMIN GLOBULIN RATIO 1.3 ontains abnormal data [facility] LIVER PANEL Component Ref Range & Units 3 mo ago BILIRUBIN TOTAL 0.2 - 1.0 mg/dL 0.7 BILIRUBIN DIRECT 0.0 - 0.2 mg/dL 0.1 ASPARTATE AMINO TRANSFERASE 15 - 37 U/L 47 High ALANINE AMINOTRANSFERASE 14 - 59 U/L 114 High ALKALINE PHOSPHATASE 46 - 116 U/L 105 TOTAL PROTEIN 6.4 - 8.2 g/dL 7.4 ALBUMIN LEVEL 3.4 - 5.0 g/dL 4.2 GLOBULIN g/dL 3.2 ALBUMIN GLOBULIN RATIO 1.3 Comprehensive metabolic panel Specimen: Blood - Venous blood specimen (specimen) Component Ref Range & Units 5 mo ago Comments Glucose 65 - 99 mg/dL 83 Fasting reference interval BUN 7 - 25 mg/dL 14 Creatinine 0.50 - 0.97 mg/dL 0.83 EGFR > OR = 60 mL/min/1.73m2 94 BUN/CREATININE RATIO 6 - 22 (calc) SEE NOTE: Not Reported: BUN and Creatinine are within reference range. Sodium 135 - 146 mmol/L 139 Potassium, Bld 3.5 - 5.3 mmol/L 4.1 Chloride 98 - 110 mmol/L 101 Carbon Dioxide 20 - 32 mmol/L 29 Calcium 8.6 - 10.2 mg/dL 9.1 PROTEIN, TOTAL 6.1 - 8.1 g/dL 7.1 ALBUMIN 3.6 - 5.1 g/dL 4.5 GLOBULIN 1.9 - 3.7 g/dL (calc) 2.6 ALBUMIN/GLOBULIN RATIO 1.0 - 2.5 (calc) 1.7 BILIRUBIN, TOTAL 0.2 - 1.2 mg/dL 0.4 ALKALINE PHOSPHATASE 31 - 125 U/L 87 AST 10 - 30 U/L 48 High ALT 6 - 29 U/L 72 High Lipase Order: [id number] Component Ref Range & Units 1 yr ago Lipase 13 - 60 U/L 260 High Hepatic Function Panel Order: [id number] Component Ref Range & Units 1 yr ago Albumin 3.5 - 5.2 g/dL 3.5 Alkaline Phosphatase 35 - 104 U/L 321 High ALT 5 - 33 U/L 137 High AST <32 U/L 60 High Total Bilirubin 0.3 - 1.2 mg/dL 1.0 Bilirubin, Direct <0.3 mg/dL 0.6 High Bilirubin, Indirect 0.0 - 1.0 mg/dL 0.4 Total Protein 6.4 - 8.3 g/dL 5.7 Low Hepatic Function Panel Order: [id number] Component Ref Range & Units 1 yr ago Albumin 3.5 - 5.2 g/dL 3.5 Alkaline Phosphatase 35 - 104 U/L 293 High ALT 5 - 33 U/L 111 High AST <32 U/L 43 High Total Bilirubin 0.3 - 1.2 mg/dL 2.6 High Bilirubin, Direct <0.3 mg/dL 1.8 High Bilirubin, Indirect 0.0 - 1.0 mg/dL 0.8 Total Protein 6.4 - 8.3 g/dL 5.7 Low ntains abnormal data COMPREHENSIVE METABOLIC PANEL Order: [id number] Component Ref Range & Units 1 yr ago Sodium 135 - 144 mmol/L 137 Potassium 3.7 - 5.3 mmol/L 4.0 Chloride 98 - 107 mmol/L 105 CO2 20 - 31 mmol/L 21 Anion Gap 9 - 17 mmol/L 11 Glucose 70 - 99 mg/dL 75 BUN 6 - 20 mg/dL 10 Creatinine 0.5 - 0.9 mg/dL 0.6 Est, Glom Filt Rate >60 mL/min/1.73m2 >60 Lipase Order: [id number] Component Ref Range & Units 1 yr ago Lipase 13 - 60 U/L 198 High ASSESSMENT/PLAN: 1. Fatty liver - ICD9: 571.8, [...] follow up with Dr. Hylton who is knowledge engineer We discussed seeing endocrinology to help [...] CXR results - XR CHEST 2V FRONTAL/LAT Grayson Peter MD documented in this encounter [facility] 04-01-2024 Telephone encounter Note Pt called to schedule, per message below. First Est slot is July 26 for VV. Please review and advise if a New Pt slot can be used for this Pt. Thank you, [facility] 04-01-2024 History of Present illness Narrative Associated Problem(s): Mild intermittent asthma without complication (CMS/HCC) Add Singulair Associated Problem(s): Tremors of nervous system Avoid Stimulants: Caffeine, otc Decongestants Try Klonopin instead of Xanax We can't do Beta Blockers because of asthma If NB consider Neurology CT scan from 12/2022 was normal Images from the original note were not included. Subjective Patient ID: Orion Harper is a 33 y.o. female who presents for shaking hands. Pt states her hands are shaking all the time , two months ago or three , pt states it is worse when she is holding something Pt does state her asthma is very bad right now having some SOB Shaking started 3 months ago Albuterol 3 weeks ago because of cats No family members with Parkinsons Current Outpatient Medications on File Prior to Visit Medication Sig Dispense Refill cephalexin (Keflex) 250 MG capsule TAKE 1 CAPSULE BY MOUTH AFTER INTERCOURSE TO PREVENT UTI diclofenac (Voltaren) 75 MG EC tablet every 12 (twelve) hours albuterol HFA 90 mcg/act inhaler INHALE 2 PUFFS INTO THE LUNGS EVERY 6 HOURS NEEDED FOR 30 DAYS amphetamine-dextroamphetamine XR (Adderall XR) 30 MG 24 hr capsule Take 1 capsule (30 mg) by mouth Daily Do not crush or chew. 30 capsule 0 baclofen (Lioresal) 10 MG tablet Take 1 tablet (10 mg) by mouth in the morning and 1 tablet (10 mg) in the evening and 1 tablet (10 mg) before bedtime. 90 tablet 0 doxycycline (Vibramycin) 100 MG capsule Take 1 capsule (100 mg) by mouth in the morning and 1 capsule (100 mg) before bedtime. Take with at least 8 ounces (large glass) of water, do not lie down for 30 minutes after. 120 capsule 0 EPINEPHrine (Adrenalin) 0.3 MG/0.3ML injection Inject 0.3 mL (0.3 mg) into the shoulder, thigh, or buttocks 1 (one) time for 1 dose 1 each 2 escitalopram (Lexapro) 20 MG tablet TAKE 1 TABLET BY MOUTH EVERY DAY IN THE MORNING 30 tablet 2 Sivojxdqdto-Fqcqmyjda-Jpugiw 100-62.5-25 MCG/ACT aerosol powder INHALE 1 PUFF INTO THE LUNGS EVERY DAY FOR 30 DAYS furosemide (Lasix) 20 MG tablet Take 1 tablet (20 mg) by mouth Daily 30 tablet 0 meloxicam (Mobic) 15 MG tablet Take 1 tablet (15 mg) by mouth Daily 30 tablet 2 phentermine (Adipex-P) 37.5 MG tablet Take 1 tablet (37.5 mg) by mouth in the morning. Take before meals. 30 tablet 0 traMADol (Ultram) 50 MG tablet Take 2 tablets (100 mg) by mouth every 6 (six) hours if needed for severe pain for up to 5 days 40 tablet 0 Vraylar 4.5 MG capsule TAKE 1 CAPSULE BY MOUTH EVERY DAY 30 capsule 5 [DISCONTINUED] ALPRAZolam (Xanax) 0.5 MG tablet Take 1 tablet (0.5 mg) by mouth in the morning and in the evening 60 tablet 0 [DISCONTINUED] amphetamine-dextroamphetamine XR (Adderall XR) 30 MG 24 hr capsule Take 1 capsule (30 mg) by mouth Daily Do not crush or chew. 30 capsule 0 [DISCONTINUED] traMADol (Ultram) 50 MG tablet Take 1 tablet (50 mg) by mouth every 6 (six) hours if needed for severe pain for up to 5 days 15 tablet 0 No current facility-administered medications on file prior [...] [facility]gett COLONOSCOPY 05/28/[address] [facility] [address] CT ANGIOGRAM CHEST 07/30/2018 CT ANGIOGRAM CHEST [facility] DATA LEGACY EGD 06/30/2022 Normal hypopharynx, normal esophagus, gastritis, Non bleeding gastric ulcers. Normal examined duodenum GALLBLADDER SURGERY 03/2023 HYSTERECTOMY PAP SMEAR 04/15/2021 normal PARTIAL HYSTERECTOMY 05/2016 PELVIC LAPAROSCOPY 02/10/2023 Visit Vitals BP 132/88 Pulse 88 Ht 5' 2 Wt 188 lb LMP (LMP Unknown) Comment: partial hysterectomy 05/2016 SpO2 94% BMI 34.39 kg/m OB Status Hysterectomy Smoking Status Former BSA 1.93 m Review of Systems Musculoskeletal: Positive for gait problem and joint swelling. Neurological: Positive for tremors. Negative for numbness. Objective Physical Exam Constitutional: General: She is not in acute distress. Appearance: Normal appearance. HENT: Head: Normocephalic. Cardiovascular: Rate and Rhythm: Normal rate and regular rhythm. Heart sounds: No murmur heard. Pulmonary: Effort: Pulmonary effort is normal. No respiratory distress. Breath sounds: Normal breath sounds. Neurological: General: No focal deficit present. Mental Status: She is alert and oriented to person, place, and time. Motor: Tremor present. Comments: Right hand and arm Psychiatric: Mood and Affect: Mood normal. Assessment/Plan Problem List Items Addressed This Visit Tremors of nervous system - Primary Avoid Stimulants: Caffeine, otc Decongestants Try Klonopin instead of Xanax We can't do Beta Blockers because of asthma If NB consider Neurology CT scan from 12/2022 was normal Mild intermittent asthma without complication (CMS/HCC) Add Singulair No follow-ups on file. documented in this encounter [facility] 03-29-2024 Telephone encounter Note I saw her in the past for this Per my note, Was seen by Dr. Hylton locally Will obtain labs and fibroscan results She had Nausea and vomiting with statin Couldn't tolerate metformin due to nausea/vomiting and diarrhea She can still follow up with Dr. Hylton who is knowledge engineer We discussed seeing endocrinology to help with weight loss and insulin resistance We also discussed cutting back on ETOH to one drink a week (currently 3-4 drinks a week) Did she follow up with Dr. Hylton? She can schedule OV with me if she prefers [facility] Work Phone: 03-29-[address] Peter, Pt JESSE Dx Fatty Liver, Liver Disease PT sent MYC message requesting a follow up labs show elevated LFTs and wanted them reviewed Please advise Thanks, Connie Lucas, JW contains abnormal data [facility] LIVER PANEL Component Ref Range & Units 3 mo ago BILIRUBIN TOTAL 0.2 - 1.0 mg/dL 0.7 BILIRUBIN DIRECT 0.0 - 0.2 mg/dL 0.1 ASPARTATE AMINO TRANSFERASE 15 - 37 U/L 47 High ALANINE AMINOTRANSFERASE 14 - 59 U/L 114 High ALKALINE PHOSPHATASE 46 - 116 U/L 105 TOTAL PROTEIN 6.4 - 8.2 g/dL 7.4 ALBUMIN LEVEL 3.4 - 5.0 g/dL 4.2 GLOBULIN g/dL 3.2 ALBUMIN GLOBULIN RATIO 1.3 ontains abnormal data [facility] LIVER PANEL Component Ref Range & Units 3 mo ago BILIRUBIN TOTAL 0.2 - 1.0 mg/dL 0.7 BILIRUBIN DIRECT 0.0 - 0.2 mg/dL 0.1 ASPARTATE AMINO TRANSFERASE 15 - 37 U/L 47 High ALANINE AMINOTRANSFERASE 14 - 59 U/L 114 High ALKALINE PHOSPHATASE 46 - 116 U/L 105 TOTAL PROTEIN 6.4 - 8.2 g/dL 7.4 ALBUMIN LEVEL 3.4 - 5.0 g/dL 4.2 GLOBULIN g/dL 3.2 ALBUMIN GLOBULIN RATIO 1.3 Comprehensive metabolic panel Specimen: Blood - Venous blood specimen (specimen) Component Ref Range & Units 5 mo ago Comments Glucose 65 - 99 mg/dL 83 Fasting reference interval BUN 7 - 25 mg/dL 14 Creatinine 0.50 - 0.97 mg/dL 0.83 EGFR > OR = 60 mL/min/1.73m2 94 BUN/CREATININE RATIO 6 - 22 (calc) SEE NOTE: Not Reported: BUN and Creatinine are within reference range. Sodium 135 - 146 mmol/L 139 Potassium, Bld 3.5 - 5.3 mmol/L 4.1 Chloride 98 - 110 mmol/L 101 Carbon Dioxide 20 - 32 mmol/L 29 Calcium 8.6 - 10.2 mg/dL 9.1 PROTEIN, TOTAL 6.1 - 8.1 g/dL 7.1 ALBUMIN 3.6 - 5.1 g/dL 4.5 GLOBULIN 1.9 - 3.7 g/dL (calc) 2.6 ALBUMIN/GLOBULIN RATIO 1.0 - 2.5 (calc) 1.7 BILIRUBIN, TOTAL 0.2 - 1.2 mg/dL 0.4 ALKALINE PHOSPHATASE 31 - 125 U/L 87 AST 10 - 30 U/L 48 High ALT 6 - 29 U/L 72 High Lipase Order: [id number] Component Ref Range & Units 1 yr ago Lipase 13 - 60 U/L 260 High Hepatic Function Panel Order: [id number] Component Ref Range & Units 1 yr ago Albumin 3.5 - 5.2 g/dL 3.5 Alkaline Phosphatase 35 - 104 U/L 321 High ALT 5 - 33 U/L 137 High AST <32 U/L 60 High Total Bilirubin 0.3 - 1.2 mg/dL 1.0 Bilirubin, Direct <0.3 mg/dL 0.6 High Bilirubin, Indirect 0.0 - 1.0 mg/dL 0.4 Total Protein 6.4 - 8.3 g/dL 5.7 Low Hepatic Function Panel Order: [id number] Component Ref Range & Units 1 yr ago Albumin 3.5 - 5.2 g/dL 3.5 Alkaline Phosphatase 35 - 104 U/L 293 High ALT 5 - 33 U/L 111 High AST <32 U/L 43 High Total Bilirubin 0.3 - 1.2 mg/dL 2.6 High Bilirubin, Direct <0.3 mg/dL 1.8 High Bilirubin, Indirect 0.0 - 1.0 mg/dL 0.8 Total Protein 6.4 - 8.3 g/dL 5.7 Low ntains abnormal data COMPREHENSIVE METABOLIC PANEL Order: [id number] Component Ref Range & Units 1 yr ago Sodium 135 - 144 mmol/L 137 Potassium 3.7 - 5.3 mmol/L 4.0 Chloride 98 - 107 mmol/L 105 CO2 20 - 31 mmol/L 21 Anion Gap 9 - 17 mmol/L 11 Glucose 70 - 99 mg/dL 75 BUN 6 - 20 mg/dL 10 Creatinine 0.5 - 0.9 mg/dL 0.6 Est, Glom Filt Rate >60 mL/min/1.73m2 >60 Lipase Order: [id number] Component Ref Range & Units 1 yr ago Lipase 13 - 60 U/L 198 High ASSESSMENT/PLAN: 1. Fatty liver - ICD9: 571.8, [...] follow up with Dr. Hylton who is knowledge engineer We discussed seeing endocrinology to help [...] CXR results - XR CHEST 2V FRONTAL/LAT Grayson Peter MD [facility] 03-27-2024 Telephone encounter Note OARRS reviewed, Rx sent into patient's pharmacy. [facility] 03-27-2024 Miscellaneous Notes OARRS reviewed, Rx sent into patient's pharmacy. Per hieu to increase tramadol 50mg 2 po every 6 prn documented in this encounter [facility] 03-27-2024 Telephone encounter Note Per hieu to increase tramadol 50mg 2 po every 6 prn [facility] 03-25-2024 Telephone encounter Note Images from the original note were not included. Patient: Orion Harper : 1990 PCP: Giovani Hagen MD Orion Harper is a 33 y.o. female presenting today for follow-up after being discharged from the hospital 10 days ago. The main problem requiring admission was The discharge summary and/or Transitional Care Management documentation was reviewed. Medication reconciliation was performed as indicated via the Woody as Reviewed timestamp. Orion Harper was contacted by Transitional Care Management services two days after her discharge. This encounter and supporting documentation was reviewed. The complexity of medical decision making for this patient's transitional care is moderate. Review of Systems Family History Problem Relation Name Age of Onset Hypertension Mother Hien Hyperlipidemia Mother Hien No Known Problems Father No Known Problems Daughter No Known Problems Daughter No Known Problems Daughter Migraines Other mother's side Diabetes Maternal Grandmother Analia Accidental Brother Jose Antonio Harper Flowsheet Row [facility] Information Discharge Date 01/10/24 Discharged To: Home Setting Discharge Hospital [facility] Engagement Call Start Time 1232 Admission Date 01/10/24 Medications Discharge medications reviewed and reconciled from hospital? Not applicable [2 attempts made to reach pt, no answer and no return call.] Is the patient having any side effects they believe may be caused by any medication additions or changes? -- [2 attempts made to reach pt, no answer and no return call.] Does the patient have all medications ordered at discharge? Not applicable [2 attempts made to reach pt, no answer and no return call.] Is the patient taking all medications as directed (includes completed medication regime)? Not applicable [2 attempts made to reach pt, no answer and no return call.] Appointments Self Management Patient Teaching Wrap Up Wrap Up Additional Comments 2 attempts made to reach pt, no answer and no return call. Call End Time 1233 No follow-ups on file. [facility] 03-25-2024 Miscellaneous Notes Images from the original note were not included. Patient: Orion Harper : 1990 PCP: Giovani Hagen MD Orion Harper is a 33 y.o. female presenting today for follow-up after being discharged from the hospital 10 days ago. The main problem requiring admission was The discharge summary and/or Transitional Care Management documentation was reviewed. Medication reconciliation was performed as indicated via the Woody as Reviewed timestamp. Orion Harper was contacted by Transitional Care Management services two days after her discharge. This encounter and supporting documentation was reviewed. The complexity of medical decision making for this patient's transitional care is moderate. Review of Systems Family History Problem Relation Name Age of Onset Hypertension Mother Hien Hyperlipidemia Mother Hien No Known Problems Father No Known Problems Daughter No Known Problems Daughter No Known Problems Daughter Migraines Other mother's side Diabetes Maternal Grandmother Analia Accidental Brother Jose Antonio Harper Flowsheet Row Patient Out[facility] from 01/17[facility]2024 [facility] Information Discharge Date 01/10/24 Discharged To: Home Setting Discharge Hospital [facility] Engagement Call Start Time 1232 Admission Date 01/10/24 Medications Discharge medications reviewed and reconciled from hospital? Not applicable [2 attempts made to reach pt, no answer and no return call.] Is the patient having any side effects they believe may be caused by any medication additions or changes? -- [2 attempts made to reach pt, no answer and no return call.] Does the patient have all medications ordered at discharge? Not applicable [2 attempts made to reach pt, no answer and no return call.] Is the patient taking all medications as directed (includes completed medication regime)? Not applicable [2 attempts made to reach pt, no answer and no return call.] Appointments Self Management Patient Teaching Wrap Up Wrap Up Additional Comments 2 attempts made to reach pt, no answer and no return call. Call End Time 1233 No follow-ups on file. Patient called asking about the results of her MRI, please advise. Results are in the chart. documented in this encounter [facility] 03-25-2024 Telephone encounter Note Patient called asking about the results of her MRI, please advise. Results are in the chart. [facility] 03-20-2024 History of Present illness Narrative Reason for Appointment: Patient ID: Orion Harper is a 33 y.o. female who presents for Gynecologic Exam Patient presents today for Annual Exam. MEDICATIONS Current Outpatient Medications Medication Instructions albuterol HFA 90 mcg/act inhaler INHALE 2 PUFFS INTO THE LUNGS EVERY 6 HOURS NEEDED FOR 30 DAYS ALPRAZolam (XANAX) 0.5 mg, Oral, 2 times daily (12/07) amphetamine-dextroamphetamine XR (Adderall XR) 30 MG 24 hr capsule 30 mg, Oral, Daily, Do not crush or chew. baclofen (LIORESAL) 10 mg, Oral, 3 times daily clobetasol (Temovate) 0.05 % cream 1 application , Topical, Daily, Apply pea-size amount daily for 30 days and then every other day for another 30 days. doxycycline (VIBRAMYCIN) 100 mg, Oral, 2 times daily, Take with at least 8 ounces (large glass) of water, do not lie down for 30 minutes after EPINEPHrine (ADRENALIN) 0.3 mg, Intramuscular, Once escitalopram (LEXAPRO) 20 mg, Oral, Every morning Qvijzdrtmti-Vvbcddgir-Fhrnpb 100-62.5-25 MCG/ACT aerosol powder INHALE 1 PUFF INTO THE LUNGS EVERY DAY FOR 30 DAYS furosemide (LASIX) 20 mg, Oral, Daily meloxicam (MOBIC) 15 mg, Oral, Daily phentermine (ADIPEX-P) 37.5 mg, Oral, Daily before breakfast Vraylar 4.5 MG capsule 1 capsule, Oral, Daily ALLERGIES Allergies Allergen Reactions Cat Hair Extract Anaphylaxis Iodinated Contrast Media Hives Iodine Itching and Swelling Omnipaque 300: Patient experienced itching on her neck and left side of her face. Also, pt complained of tongue feeling itchy and feels like something is stuck in her throat . Patient received diphenhydramine (Benadryl) Prednisone & Diphenhydramine Other Reaction(s): Unknown PROBLEMS Active Ambulatory Problems Diagnosis Date Noted Abnormal involuntary movement 09/23/2022 Anxiety 09/23/2022 Attention deficit hyperactivity disorder, predominantly inattentive type ([facility]/HCC) 09/23/2022 Bipolar disorder, in partial remission, most recent episode manic ([facility]) 09/23/2022 Diverticular disease of colon 09/23/2022 Dysphagia 09/23/2022 Elevated liver enzymes 09/23/2022 Exercise induced bronchospasm ([facility]) 09/23/2022 Finding of above normal blood pressure 09/23/2022 History of hysterectomy 09/23/2022 Hyperglycemia 09/23/2022 Hypersexuality 09/23/2022 Insomnia 09/23/2022 Irritable bowel syndrome with constipation 09/23/2022 Mild intermittent asthma without complication ([facility]) 09/23/2022 Mood swings 09/23/2022 Nephrolithiasis 09/23/2022 Nonalcoholic steatohepatitis (ENGLISH) 09/23/2022 Other specified abnormal findings of blood chemistry 09/23/2022 Poor concentration 09/23/2022 Sacroiliitis, not elsewhere classified ([facility]) 09/23/2022 Skin pain 09/23/2022 Thyroid enlargement ([facility]) 09/23/2022 Atherosclerosis of aorta ([facility]) 06/16/2020 Atherosclerosis of both carotid arteries 11/16/2020 Atherosclerosis of coronary artery without angina pectoris ([facility]) 05/18/2021 Gastroesophageal reflux disease without esophagitis 07/09/2019 Gastroparesis 11/02/2022 Non-refractory idiopathic generalized epilepsy ([facility]) 11/22/2019 Osteoarthritis of knee 06/14/2019 Hypercholesterolemia ([facility]) 07/01/2021 Recurrent UTI 12/12/2022 Vitamin D deficiency 05/16/2019 Dizziness 12/13/2022 Acute nonintractable headache 12/13/2022 History of COVID-19 02/06/2023 Overweight 02/06/2023 Acute biliary pancreatitis without infection or necrosis 03/21/2023 Calculus of gallbladder without cholecystitis without obstruction 03/23/2023 Cholecystitis 04/18/2023 Encounter for postoperative care 04/18/2023 History of acute pancreatitis 04/18/2023 History of cholecystectomy 04/18/2023 Cough 04/18/2023 Anaphylactic syndrome 04/18/2023 PTSD (post-traumatic stress disorder) (CMS/HCC) 02/24/2015 Tinea 10/03/2023 Weight gain 10/03/2023 Glucose intolerance 10/03/2023 Dyshidrosis 10/03/2023 Encounter for well adult exam without abnormal findings 12/04/2023 Cervical radiculopathy 12/26/2023 Obesity (BMI 35.0-39.9 without comorbidity) 02/06/2024 Localized edema 02/06/2024 Injury of right ankle 02/06/2024 Resolved Ambulatory Problems Diagnosis Date Noted Abnormal ultrasound 09/23/2022 Diverticulitis 09/23/2022 Diverticulitis of large intestine without perforation or abscess without bleeding 09/23/2022 Maxillary sinusitis 09/23/2022 Sinusitis 09/23/2022 Obesity (BMI 30.0-34.9) 09/23/2022 Sciatica 09/23/2022 Smoker 09/23/2022 Tension headache 09/23/2022 Severe acute respiratory syndrome coronavirus 2 (SARS-CoV-2) detected 11/30/2022 Dysuria 12/12/2022 Urinary frequency 12/12/2022 UTI (urinary tract infection) 12/12/2022 Past Medical History: Diagnosis Date Abnormal computed tomography angiography (CTA) of abdomen and pelvis 03/11/2019 Abnormal LFTs Abnormal liver ultrasound 06/15/2022 Asthma ([facility]/HCC) COVID 03/11/2021 Delayed gastric emptying 09/12/2022 Gall stones Gestational hypertension H/O CT scan of chest 07/30/2018 HELLP syndrome History of being hospitalized History of colonoscopy 05/28/2019 History of diagnostic ultrasound 03/23/2018 History of diagnostic ultrasound 12/10/2021 History of esophagogastroduodenoscopy 06/30/2022 History of esophagogastroduodenoscopy 08/31/2022 History of HIDA scan 08/28/2021 History of medical problems 03/18/2020 History of medical problems 08/16/2021 History of medical problems 06/10/2022 Influenza A 05/07/2017 Left ovarian cyst 03/01/2019 Pancreatitis Pap smear for cervical cancer screening 04/20/2022 Post depression ([facility]/HCC) HISTORY PAST MEDICAL HISTORY SOCIAL HISTORY Past Medical History: Diagnosis Date Abnormal computed [...] cancer screening 04/20/2022 neg Post depression (CMS/HCC) Social History Tobacco Use Smoking status: Former Smokeless tobacco: Never Substance Use Topics Alcohol use: Yes Alcohol/week: 2.0 standard drinks of alcohol Types: 2 Standard drinks or equivalent per week Drug use: Never FAMILY HISTORY Family History Problem Relation Name Age of Onset Hypertension Mother Hien Hyperlipidemia Mother Hien No Known Problems Father No Known Problems Daughter No Known Problems Daughter No Known Problems Daughter Migraines Other mother's side Diabetes Maternal Grandmother Analia Accidental Brother Jose Antonio Harper SURGICAL HISTORY Past Surgical History: Procedure Laterality Date SECTION, LOW TRANSVERSE 2012,2013, 2016 CHOLECYSTECTOMY 03/23/2023 Laporoscopic COLONOSCOPY 05/11/2018 Dr. Padgett COLONOSCOPY 05/28/[address] [facility] [address] Peter CT ANGIOGRAM CHEST 07/30/2018 CT ANGIOGRAM CHEST [facility] DATA LEGACY EGD 06/30/2022 Normal hypopharynx, normal esophagus, gastritis, Non bleeding gastric ulcers. Normal examined duodenum GALLBLADDER SURGERY 03/2023 HYSTERECTOMY PAP SMEAR 04/15/2021 normal PARTIAL HYSTERECTOMY 05/2016 PELVIC LAPAROSCOPY 02/10/2023 REVIEW OF SYSTEMS Review of Systems: Review of Systems Constitutional: Negative. HENT: Negative. Eyes: Negative. Respiratory: Negative. Cardiovascular: Negative. Gastrointestinal: Negative. Genitourinary: Negative. Musculoskeletal: Negative. Skin: Negative. Neurological: Negative. All other systems reviewed and are negative. Hematological: Negative. Endocrine: Negative. Allergic/Immunologic: Negative. OBJECTIVE Objective: Physical Exam Constitutional: Appearance: Normal appearance. She is well-developed. Genitourinary: Vulva normal. Vaginal cuff intact. Cervix is absent. Uterus is absent. Breasts: Breasts are soft. Right: Normal. Left: Normal. Cardiovascular: Rate and Rhythm: Normal rate and regular rhythm. Pulmonary: Effort: Pulmonary effort is normal. Breath sounds: Normal breath sounds. Abdominal: General: Bowel sounds are normal. There is no distension. Palpations: Abdomen is soft. Tenderness: There is no abdominal tenderness. There is no guarding or rebound. Musculoskeletal: General: No swelling. Normal range of motion. Right lower leg: No edema. Left lower leg: No edema. Neurological: Mental Status: She is alert and oriented to person, place, and time. Skin: General: Skin is warm and dry. Psychiatric: Mood and Affect: Mood normal. Behavior: Behavior normal. Vitals and nursing note reviewed. Exam conducted with a handtools repairer present. Vitals: Estimated body mass index is 34.93 kg/m as calculated from the following: Height as of 02/06/24: 5' 2 . Weight as of this encounter: 191 lb. BP: 118/72 No LMP recorded (lmp unknown). Patient has had a hysterectomy. ASSESSMENT & PLAN ICD-10-CM 1. Well woman exam with routine gynecological exam Z01.419 Pap Smear HPV DNA probe, amplified 2. Dyspareunia in female N94.10 3. Cystitis N30.90 doxycycline (Vibramycin) 100 MG capsule Annual Exam: Patient presents today for an annual exam. Patient states she is doing well and has complaints of dyspareunia- pt to be scheduled for dx lap with poss leena poss foe. Pt has a positive bladder swipe. Rx for doxy faxed to pharmacy. Pap was obtained without difficulty. Orders Placed This Encounter Procedures HPV DNA probe, amplified Follow Up: Patient is to return in one year for annual unless needed otherwise. Documented by Sandy Toribio LPN on behalf of: Darwin Starr DO documented in this encounter [facility] 03-07-2024 Telephone encounter Note OARRS reviewed, Rx sent into patient's pharmacy. [facility] 03-07-2024 Miscellaneous Notes OARRS reviewed, Rx sent into patient's pharmacy. documented in this encounter [facility] 03-07-2024 Telephone encounter Note OARRS reviewed, Rx sent into patient's pharmacy. [facility] 03-07-2024 Miscellaneous Notes OARRS reviewed, Rx sent into patient's pharmacy. ALPRAZolam (Xanax) 0.5 MG tablet [facility] documented in this encounter [facility] 03-06-2024 History of Present illness Narrative Physical Therapy Treatment Visit Patient Name: Orion Harper Today's Date: 03/06/2024 Encounter Diagnoses Name [...] a flair up. Pain: 06/03 neck, ankle 3 Objective: PT Evaluation (02/05/24) Cervical ROM: normal [...] to be instructed in home exercise program. Senior Living Goals: To be met in 10 weeks [...] necessary. Please sign below. Date: Cosigned by Zhen Burgess PT at 03/07/2024 2:57 PM EST documented in this encounter [facility] 03-06-2024 Telephone encounter Note ALPRAZolam (Xanax) 0.5 MG tablet [facility] 02-12-2024 History of Present illness Narrative Physical Therapy Treatment Visit Patient Name: Orion Harper Today's Date: 02/12/24 Encounter Diagnoses Name [...] to be instructed in home exercise program. Agency Recruiter Goals: To be met in 10 weeks [...] sign below. Date: documented in this encounter [facility] 02-06-2024 History of Present illness Narrative Associated [...] note were not included. Subjective Patient ID: Orion Harper is a 33 y.o. female who [...] DAY IN THE MORNING 30 tablet 2 Ormxndanowu-Glstwjzbp-Bptiny 100-62.5-25 MCG/ACT aerosol powder INHALE 1 PUFF [...] [facility]gett COLONOSCOPY 05/28/[address] [facility] [address] CT ANGIOGRAM CHEST 07/30/2018 CT ANGIOGRAM CHEST [...] follow-ups on file. documented in this encounter [facility] 01-29-2024 Telephone encounter Note 25 visits out to 10/21/24 [facility] 01-29-2024 Miscellaneous Notes 25 visits out to 10/21/24 documented in this encounter [facility] 01-22-2024 History of Present illness Narrative Reason for Appointment: Patient ID: Orion Harper is a 33 y.o. female who presents for Dyspareunia Patient presents today for Consult appointment. MEDICATIONS Current Outpatient Medications Medication Instructions albuterol HFA 90 mcg/act inhaler INHALE 2 PUFFS INTO THE LUNGS EVERY 6 HOURS NEEDED FOR 30 DAYS ALPRAZolam (XANAX) 0.5 mg, Oral, 2 times daily (12/07) amphetamine-dextroamphetamine XR (Adderall XR) 30 MG 24 hr capsule 30 mg, Oral, Daily, Do not crush or chew. baclofen (LIORESAL) 10 mg, Oral, 3 times daily EPINEPHrine (ADRENALIN) 0.3 mg, Intramuscular, Once escitalopram (LEXAPRO) 20 mg, Oral, Every morning Ewjzmnrfvno-Wclocuucr-Lugtra 100-62.5-25 MCG/ACT aerosol powder INHALE 1 PUFF INTO THE LUNGS EVERY DAY FOR 30 DAYS phentermine (ADIPEX-P) 37.5 mg, Oral, Daily before breakfast Vraylar 4.5 MG capsule 1 capsule, Oral, Daily ALLERGIES Allergies Allergen Reactions Cat Hair Extract Anaphylaxis Iodinated Contrast Media Hives Iodine Itching and Swelling Omnipaque 300: Patient experienced itching on her neck and left side of her face. Also, pt complained of tongue feeling itchy and feels like something is stuck in her throat . Patient received diphenhydramine (Benadryl) Prednisone & Diphenhydramine Other Reaction(s): Unknown PROBLEMS Active Ambulatory Problems Diagnosis Date Noted Abnormal involuntary movement 09/23/2022 Anxiety 09/23/2022 Attention deficit hyperactivity disorder, predominantly inattentive type ([facility]) 09/23/2022 Bipolar disorder, in partial remission, most recent episode manic ([facility]) 09/23/2022 Diverticular disease of colon 09/23/2022 Dysphagia 09/23/2022 Elevated liver enzymes 09/23/2022 Exercise induced bronchospasm ([facility]) 09/23/2022 Finding of above normal blood pressure 09/23/2022 History of hysterectomy 09/23/2022 Hyperglycemia 09/23/2022 Hypersexuality 09/23/2022 Insomnia 09/23/2022 Irritable bowel syndrome with constipation 09/23/2022 Mild intermittent asthma without complication ([facility]) 09/23/2022 Mood swings 09/23/2022 Nephrolithiasis 09/23/2022 Nonalcoholic steatohepatitis (ENGLISH) 09/23/2022 Other specified abnormal findings of blood chemistry 09/23/2022 Poor concentration 09/23/2022 Sacroiliitis, not elsewhere classified ([facility]) 09/23/2022 Skin pain 09/23/2022 Thyroid enlargement ([facility]) 09/23/2022 Atherosclerosis of aorta ([facility]) 06/16/2020 Atherosclerosis of both carotid arteries 11/16/2020 Atherosclerosis of coronary artery without angina pectoris ([facility]) 05/18/2021 Gastroesophageal reflux disease without esophagitis 07/09/2019 Gastroparesis 11/02/2022 Non-refractory idiopathic generalized epilepsy ([facility]) 11/22/2019 Osteoarthritis of knee 06/14/2019 Hypercholesterolemia ([facility]) 07/01/2021 Recurrent UTI 12/12/2022 Vitamin D deficiency 05/16/2019 Dizziness 12/13/2022 Acute nonintractable headache 12/13/2022 History of COVID-19 02/06/2023 Overweight 02/06/2023 Acute biliary pancreatitis without infection or necrosis 03/21/2023 Calculus of gallbladder without cholecystitis without obstruction 03/23/2023 Cholecystitis 04/18/2023 Encounter for postoperative care 04/18/2023 History of acute pancreatitis 04/18/2023 History of cholecystectomy 04/18/2023 Cough 04/18/2023 Anaphylactic syndrome 04/18/2023 PTSD (post-traumatic stress disorder) ([facility]) 02/24/2015 Tinea 10/03/2023 Weight gain 10/03/2023 Glucose intolerance 10/03/2023 Dyshidrosis 10/03/2023 Encounter for well adult exam without abnormal findings 12/04/2023 Cervical radiculopathy 12/26/2023 Resolved Ambulatory Problems Diagnosis Date Noted Abnormal ultrasound 09/23/2022 Diverticulitis 09/23/2022 Diverticulitis of large intestine without perforation or abscess without bleeding 09/23/2022 Maxillary sinusitis 09/23/2022 Sinusitis 09/23/2022 Obesity (BMI 30.0-34.9) 09/23/2022 Sciatica 09/23/2022 Smoker 09/23/2022 Tension headache 09/23/2022 Severe acute respiratory syndrome coronavirus 2 (SARS-CoV-2) detected 11/30/2022 Dysuria 12/12/2022 Urinary frequency 12/12/2022 UTI (urinary tract infection) 12/12/2022 Past Medical History: Diagnosis Date Abnormal computed tomography angiography (CTA) of abdomen and pelvis 03/11/2019 Abnormal LFTs Abnormal liver ultrasound 06/15/2022 Asthma (CMS/HCC) COVID 03/11/2021 Delayed gastric emptying 09/12/2022 Gall stones Gestational hypertension H/O CT scan of chest 07/30/2018 HELLP syndrome History of being hospitalized History of colonoscopy 05/28/2019 History of diagnostic ultrasound 03/23/2018 History of diagnostic ultrasound 12/10/2021 History of esophagogastroduodenoscopy 06/30/2022 History of esophagogastroduodenoscopy 08/31/2022 History of HIDA scan 08/28/2021 History of medical problems 03/18/2020 History of medical problems 08/16/2021 History of medical problems 06/10/2022 Influenza A 05/07/2017 Left ovarian cyst 03/01/2019 Pancreatitis Pap smear for cervical cancer screening 04/20/2022 Post depression (CMS/HCC) HISTORY PAST MEDICAL HISTORY SOCIAL HISTORY Past Medical History: Diagnosis Date Abnormal computed [...] cancer screening 04/20/2022 neg Post depression (CMS/HCC) Social History Tobacco Use Smoking status: Former Smokeless tobacco: Never Substance Use Topics Alcohol use: Yes Alcohol/week: 2.0 standard drinks of alcohol Types: 2 Standard drinks or equivalent per week Drug use: Never FAMILY HISTORY Family History Problem Relation Name Age of Onset Hypertension Mother Hien Hyperlipidemia Mother Hien No Known Problems Father No Known Problems Daughter No Known Problems Daughter No Known Problems Daughter Migraines Other mother's side Diabetes Maternal Grandmother Analia Accidental Brother Jose Antonio Harper SURGICAL HISTORY Past Surgical History: Procedure Laterality Date SECTION, LOW TRANSVERSE 2012,2013, 2016 CHOLECYSTECTOMY 03/23/2023 Laporoscopic COLONOSCOPY 05/11/2018 Dr. Padgett COLONOSCOPY 05/28/[address] [facility] [address] Peter CT ANGIOGRAM CHEST 07/30/2018 CT ANGIOGRAM CHEST [facility] EGD 06/30/2022 Normal hypopharynx, normal esophagus, gastritis, Non bleeding gastric ulcers. Normal examined duodenum GALLBLADDER SURGERY 03/2023 HYSTERECTOMY PAP SMEAR 04/15/2021 normal PARTIAL HYSTERECTOMY 05/2016 PELVIC LAPAROSCOPY 02/10/2023 REVIEW OF SYSTEMS Review of Systems: Review of Systems Genitourinary: Positive for pelvic pain and vaginal pain. All other systems reviewed and are negative. OBJECTIVE Objective: Physical Exam Constitutional: Appearance: Normal appearance. She is well-developed. Cardiovascular: Rate and Rhythm: Normal rate and regular rhythm. Pulmonary: Effort: Pulmonary effort is normal. Breath sounds: Normal breath sounds. Abdominal: General: Bowel sounds are normal. There is no distension. Palpations: Abdomen is soft. Tenderness: There is no abdominal tenderness. There is no guarding or rebound. Musculoskeletal: General: No swelling. Normal range of motion. Right lower leg: No edema. Left lower leg: No edema. Neurological: Mental Status: She is alert and oriented to person, place, and time. Skin: General: Skin is warm and dry. Psychiatric: Mood and Affect: Mood normal. Behavior: Behavior normal. Vitals and nursing note reviewed. Exam conducted with a handtools repairer present. Vitals: Estimated body mass index is 34.75 kg/m as calculated from the following: Height as of 01/09/24: 5' 2 . Weight as of 01/09/24: 190 lb. BP: 112/74 No LMP recorded (lmp unknown). Patient has had a hysterectomy. ASSESSMENT & PLAN Patient presents for painful intercourse. Patient has tried OCP and estrogen cream in the past for 6 months to a year with no improvement. Discussed Steroid and anti-fungal to help with symptoms to see if improvement. Pelvic Exam performed and pain on insertion of speculum and patient voiced left sided pain. Pain is located at urethra. Patient will be prescribed Clobetasol cream--pea size amount daily for 1 month and then every other day for the next month. Patient to return to clinic for follow up pain and annual appointment. Then at that time could discuss pain. Premarin samples given as well to use. Documented by Acacia Vigil LPN on behalf of: Darwin Starr DO documented in this encounter [facility] 01-09-2024 History of Present illness Narrative Images from the original note were not included. Subjective Patient ID: Orion Harper is a 33 y.o. female who presents for Foot Pain. Pt started adipex a month ago starting weight was 187 Pt did just get back from vacation Therapy in [place] one year ago Has had injections to lumbar spine Current Outpatient Medications on File Prior to [...] (10 mg) before bedtime. 90 tablet 0 cholecalciferol (Vitamin D-3) 125 MCG (5000 UT) capsule Take 1 capsule (125 mcg) by mouth in the morning. 90 capsule 3 EPINEPHrine (Adrenalin) 0.3 MG/0.3ML injection Inject 0.3 mL (0.3 mg) into the shoulder, thigh, or buttocks 1 (one) time for 1 dose 1 each 2 escitalopram (Lexapro) 20 MG tablet TAKE 1 TABLET BY MOUTH EVERY DAY IN THE MORNING 30 tablet 2 Bcqiiycfube-Iusznjuha-Utlixc 100-62.5-25 MCG/ACT aerosol powder INHALE 1 PUFF INTO THE LUNGS EVERY DAY FOR 30 DAYS ondansetron (Zofran) 4 MG tablet Take 1 tablet (4 mg) by mouth every 8 (eight) hours if needed for nausea or vomiting 15 tablet 0 phentermine (Adipex-P) 37.5 MG tablet Take 1 tablet (37.5 mg) by mouth in the morning. Take before meals. 30 tablet 0 predniSONE (Deltasone) 10 MG tablet Take 4 tablets (40 mg) by mouth Daily for 4 days, THEN 3 tablets (30 mg) Daily for 4 days, THEN 2 tablets (20 mg) Daily for 4 days, THEN 1 tablet (10 mg) Daily for 4 days. 40 tablet 0 [] promethazine (Phenergan) 25 MG tablet Take 1 tablet (25 mg) by mouth every 6 (six) hours if needed for nausea or vomiting for up to 7 days 30 tablet 0 Vraylar 4.5 MG capsule TAKE 1 CAPSULE BY MOUTH EVERY DAY 30 capsule 5 [DISCONTINUED] amphetamine-dextroamphetamine XR (Adderall XR) 30 MG 24 hr capsule Take 1 capsule (30 mg) by mouth Daily Do not crush or chew. 30 capsule 0 [DISCONTINUED] phentermine (Adipex-P) 37.5 MG tablet Take 1 tablet (37.5 mg) by mouth in the morning. Take before meals. 30 tablet 0 No current facility-administered medications on file prior [...] Padgett COLONOSCOPY 05/28/[address] [facility] [address] Peter CT ANGIOGRAM CHEST 07/30/2018 CT ANGIOGRAM CHEST [facility]GAC[facility] EGD 06/30/2022 Normal hypopharynx, normal esophagus, gastritis, Non bleeding gastric ulcers. Normal examined duodenum GALLBLADDER SURGERY 2022 HYSTERECTOMY PAP SMEAR 04/15/2021 normal PARTIAL HYSTERECTOMY 05/2016 PELVIC LAPAROSCOPY 02/10/2023 Visit Vitals LMP (LMP Unknown) Comment: partial hysterectomy 05/2016 OB Status Hysterectomy Smoking Status Former Review of Systems Musculoskeletal: Positive for back pain, neck pain and neck stiffness. Objective Physical Exam Assessment/Plan Problem List Items Addressed This Visit Anxiety Relevant Medications ALPRAZolam (Xanax) 0.5 MG tablet Bipolar disorder, in partial remission, most recent episode manic (CMS/HCC) Relevant Medications ALPRAZolam (Xanax) 0.5 MG tablet Cervical radiculopathy - Primary Relevant Orders XR cervical spine 2 or 3 views Other Visit Diagnoses Attention deficit hyperactivity disorder (ADHD), predominantly inattentive type (CMS/HCC) Relevant Medications amphetamine-dextroamphetamine XR (Adderall XR) 30 MG 24 hr capsule No follow-ups on file. documented in this encounter [facility] 01-08-2024 Telephone encounter Note Adderall [facility] [place] [facility] 01-08-2024 Miscellaneous Notes Adderall [facility] [place] documented in this encounter [facility] 12-28-2023 Hospital Discharge instructions Patient Education 12/28/2023 15:59:41 Kidney Stones, Xike-ij-Ppmm Kidney Stones Kidney stones are rock-like masses [...] Follow these instructions at home: Medicines Take flbx-eho-uyghjnk and prescription medicines only as told by [...] provider. Document Revised: 12/02/2022 Document Reviewed: 12/02/2022 [employer] Patient Education 2023 [email or web address]. Follow Up Care 11/07/2022 15:52:12 With:BHAVESH DEJESUS PA-C, URL Address: When:1 year [facility] 12-28-2023 Note Patient Education Urology [...] these instructions at home: Medicines ? Take kauz-wsg-jjpqsau and prescription medicines only as told by [...] provider. Document Revised: 12/02/2022 Document Reviewed: 12/02/2022 [employer] Patient Education ? 2023 [email or web address]. [facility] 12-26-2023 History of Present illness Narrative Associated Problem(s): Cervical radiculopathy I discussed with patient that while on prednisone, do not take any NSAIDs like Ibuprofen, Naprosyn, Alleve or motrin. Watch for any side effects like abdominal pain and nausea. Take the prednisone with food or milk. Prednisone may increase appetite. While on prednisone, watch for any sugar elevations. If NB consider PT and xrays Eventual MRI Associated Problem(s): Acute nonintractable headache Could be migraine CT scan of head last December 2022 was normal. Discussed with patient that if WRST headache of her life she needs to go to ER for possible subarachnoid hemorrhage Images from the original note were not included. Subjective Patient ID: Orion Harper is a 33 y.o. female who presents for Foot Pain. Pt is getting a tingling sensation on her back on her left shoulder blade and will radiate down to her finger tips Her back started about three weeks ago , no injury Pt states she can be sitting down and it comes out of nowhere NO pain just tingling sensation Pt has been vomiting, nauseated today and states she does have a headache not migraine Current Outpatient Medications on File Prior to [...] not crush or chew. 30 capsule 0 cholecalciferol (Vitamin D-3) 125 MCG (5000 UT) capsule Take 1 capsule (125 mcg) by mouth in the morning. 90 capsule 3 EPINEPHrine (Adrenalin) 0.3 MG/0.3ML injection Inject 0.3 mL (0.3 mg) into the shoulder, thigh, or buttocks 1 (one) time for 1 dose 1 each 2 escitalopram (Lexapro) 20 MG tablet TAKE 1 TABLET BY MOUTH EVERY DAY IN THE MORNING 30 tablet 2 Yhbemcjaqle-Hhhprfqbf-Phsjcy 100-62.5-25 MCG/ACT aerosol powder INHALE 1 PUFF INTO THE LUNGS EVERY DAY FOR 30 DAYS ondansetron (Zofran) 4 MG tablet Take 1 tablet (4 mg) by mouth every 8 (eight) hours if needed for nausea or vomiting 15 tablet 0 phentermine (Adipex-P) 37.5 MG tablet Take 1 tablet (37.5 mg) by mouth in the morning. Take before meals. 30 tablet 0 Vraylar 4.5 MG capsule TAKE 1 CAPSULE BY MOUTH EVERY DAY 30 capsule 5 [DISCONTINUED] Semaglutide-Weight Management (Wegovy) 0.25 MG/0.5ML solution auto-injector Inject 0.25 mg under the skin 1 (one) time per week 2 mL 0 No current facility-administered medications on file prior [...] Padgett COLONOSCOPY 05/28/[address] [facility] [address] Peter CT ANGIOGRAM CHEST 07/30/2018 CT ANGIOGRAM CHEST [facility]GAC[facility] EGD 06/30/2022 Normal hypopharynx, normal esophagus, gastritis, Non bleeding gastric ulcers. Normal examined duodenum GALLBLADDER SURGERY 2022 HYSTERECTOMY PAP SMEAR 04/15/2021 normal PARTIAL HYSTERECTOMY 05/2016 PELVIC LAPAROSCOPY 02/10/2023 Visit Vitals LMP (LMP Unknown) Comment: partial hysterectomy 05/2016 OB Status Hysterectomy Smoking Status Former Review of Systems Objective Physical Exam Assessment/Plan No follow-ups on file. documented in this encounter [facility] 12-19-2023 Note Education (CARDMN) ---- ORION HARPER ([id number]) 1990 F Date Time Provider Department 12/19/23 [...] [facility] 12-19-2023 Note HNO ID: [id number] Author: GEGE LEMA Tech Service: ? Author Type: Technologist Type: Progress Notes Filed: 12/19/2023 15:45 Note Text: EVENT MONITOR DISPOSABLE PATCH INSTRUCTIONS Patient Name: Orion Harper [facility] Number: [id number] Skin prepped and cleansed with alcohol Patch secured to prepped area Monitor Activated Serial #: [id number] Patient Instructed: Prescribed order timeframe Bathing guidelines Usage of event button and diary documentation Return of monitor at the end of prescribed order Call with problems [phone] or [phone]. [phone] Patient expresses a good understanding of instructions Tristian Pretty [facility] 12-19-2023 History of Present illness Narrative EVENT MONITOR DISPOSABLE PATCH INSTRUCTIONS Patient Name: Orion Harper [facility] Number: [id number] Skin prepped and cleansed with alcohol Patch secured to prepped area Monitor Activated Serial #: [id number] Patient Instructed: Prescribed order timeframe Bathing guidelines Usage of event button and diary documentation Return of monitor at the end of prescribed order Call with problems [phone] or [phone]. [phone] Patient expresses a good understanding of instructions Tristian Pretty documented in this encounter [facility] 12-19-2023 Instructions Solo Mora MD - 12/19/2023 3:27 PM EDT Next Steps: 1). Please wear a heart monitor for 2 weeks and mail it back 2). Please get a stress echo done and follow up with me afterwards documented in this encounter [facility] 12-19-2023 History of Present illness Narrative Images from the original note were not included. [facility] Department of Cardiovascular Medicine SECTION OF CARDIAC PACING and ELECTROPHYSIOLOGY OUTPATIENT VISIT DATE December 19, 2023 OUTPATIENT VISIT TYPE NEW PRIMARY CARE PHYSICIAN: Giovani Hagen MD [address] [place] [address] CHIEF COMPLAINT: Syncope, cardiac evaluation for family [...] had any workup done including Stress Echo, tai chi instructor or 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 Reports symptoms of palpitations [...] had any workup done including Stress Echo, tai chi instructor or 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 PLAN AND RECOMMENDATIONS: - Exercise stress echo for exertional syncope to rule out structural or arrhythmic cause - 2 week tina Fitzgerald personally interviewed, confirmed and edited the above information as obtained by others. CONTACT INFORMATION: Solo Mora MD documented in this encounter [facility] 12-19-2023 Note HNO ID: [id number] Author: SOLO MORA MD Service: ? Author Type: Physician Type: Progress Notes Filed: 12/28/2023 02:49 Note Text: [facility] Department of Cardiovascular Medicine SECTION OF CARDIAC PACING and ELECTROPHYSIOLOGY OUTPATIENT VISIT DATE December 19, 2023 OUTPATIENT VISIT TYPE NEW PRIMARY CARE PHYSICIAN: Giovani Hagen MD [address] [place] [address] CHIEF COMPLAINT: Syncope, cardiac evaluation for family [...] had any workup done including Stress Echo, tai chi instructor or 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 Reports symptoms of palpitations [...] [facility] 12-19-2023 Note HNO ID: [id number] Author: SOLO MORA MD Service: ? Author Type: Physician Type: Procedures Filed: 02/21/2024 20:58 Note Text: Patient Name: Orion Harper : 1990 Ordering Provider: Solo Mora [...] Patient had labwork performed on 12-13-2023. Dr. Colvin wanted you to be aware so you could review them. [facility] 12-18-2023 Miscellaneous Notes Patient had labwork performed on 12-13-2023. Dr. Colvin wanted you to be aware so you could review them. documented in this encounter [facility] 11-02-2023 Telephone encounter Note Images from the original note were not included. Records are in Care Everywhere: EP Referral- 11/01/23 (Dr. Shilo Dillon/Cardiology) Criss Mccrary [facility] 11-02-2023 Miscellaneous Notes Images from the original note were not included. Records are in Care Everywhere: EP Referral- 11/01/23 (Dr. Shilo Dillon/Cardiology) Criss Mccrary documented in this encounter [facility] 03-20-2023 Miscellaneous Notes Patient is [...] prior to transfer. documented in this encounter [facility] 11-03-2022 Miscellaneous Notes PA for Ibsrela initiated electronically. Awaiting response [facility] ID# [id number] Rx BIN [id number] Rx PCN CLAIMCR Rx Grp [facility] documented in this encounter [facility] 11-02-2022 History of Present illness Narrative [facility] Name: Orion Harper MR#: [id number] Date: 11/02/2022 Time: 1 hour Referred by: [...] She was given the website for the [facility] and shown the relaxation recordings with the recommendation to practice this and the rationale behind their use. Follow-up with Dr. Conteh was discussed as well as encouraging her to continue her PTSD work with a local trauma therapist. Soraida Zhang, Ph.D. documented in this encounter [facility] 11-02-2022 History of Present illness Narrative Assessment ASSESSMENT 32 year old female with medical refractory gastroparesis. PLAN I discussed surgical therapy for gastroparesis in detail. Orion Harper is candidate for further medical treatment. Needs to stop Wegovy May consider for wireless motility capsule study Constipation medication change per Dr. Corey NAME: Orion Harper CLINIC NO: [id number] DATE OF SERVICE: November 01, 2022 This is an initial consultation for Orion Harper who was referred to me by Dr. Maria Dolores Corey for evaluation of medical refractory gastroparesis. My final recommendation will be communicated via shared electronic medical record. 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 Gastric Emptying Study Results (09/12/2022) 1 [...] UTI < 6 weeks (date) 10/22/2022, Nephrolithiasis GENERAL ASSIGNMENT REPORTER: Negative for abnormal vaginal bleeding, abnormal vaginal [...] No LE Edema documented in this encounter [facility] 10-18-2022 Miscellaneous Notes Images from the original note were not included. Maria Dolores Corey DO P Sp Ddsi Clinical Pool Please ask her to see GENERAL ASSIGNMENT REPORTER to r/o endometriosis there was a very slight abnormal wave (not strong) suggesting its possible Called and spoke with the patient and relayed providers message. documented in this encounter [facility] 10-18-2022 Miscellaneous Notes PA initiated via [employer]. Await response. Covered: Retail, Mail Order Unknown: Specialty, Long-Term Care Group ID: [id number] Group name: BIN: [id number] PCN: CLAIMCR documented in this encounter [facility] 10-18-2022 History of Present illness Narrative Images from the original note were not included. documented in this encounter [facility] 10-17-2022 Nurse Note EGG completed. Able to drink the 500 ml of water without any difficulty. documented in this encounter [facility] 09-12-2022 History of Present illness [...] 10:11AM PATIENT DISCHARGED TO: Ambulatory patient, left [place] department area. A Diagnostic radioactive procedure has taken place, with no further precautions necessary other than routine body substance precautions. More information regarding radiation safety can be found using this link: [email or web address] [email or web address]/files/Rad%20Protection% 20-%20Diagnostic%20Nuclear%20Medicine% 20Procedures.pdf SIGNATURE: RT Amber(R) PATIENT NAME: Orion Harper DATE: September 12, 2022 TIME: 2:45 PM PAGER/CONTACT #: documented in this encounter [facility] 08-31-2022 Nurse Note POST OP LEARNING RESPONSE INSTRUCTION PROVIDED TO: Patient and family member METHOD OF INSTRUCTION: Written instruction - handouts Verbal instruction PATIENT / FAMILY RESPONSE: Information received as demonstrated by interest and questions FOLLOW-UP PLAN: Patient instructed to call with any further issues SUPPLEMENTAL MATERIAL: None REFERRAL (RECOMMENDATION): None Electronically Signed By: Wilma Limon RN In Department: AMBULATORY SURGERY [facility] 08-31-2022 Nurse Note POST OP LEARNING RESPONSE [...] Department: AMBULATORY SURGERY documented in this encounter [facility] 08-31-2022 History and physical note SEDATION HISTORY [...] agreed to proceed. SEDATION GOAL: Anesthesia SIGNATURE: Grayson Peter MD PATIENT NAME: Orion Harper DATE: August 31, 2022 TIME: 2:51 PM [facility] 08-31-2022 History and physical note SEDATION HISTORY [...] agreed to proceed. SEDATION GOAL: Anesthesia SIGNATURE: Grayson Peter MD PATIENT NAME: Orion Harper DATE: August 31, 2022 TIME: 2:51 PM documented in this encounter [facility] 08-31-2022 Nurse Note PRE OP LEARNING ASSESSMENT PROCEDURE/SURGERY: GI PROCEDURES: EGD READINESS TO LEARN COGNITIVE ABILITY: Alert and oriented MOTIVATION TO LEARN: Interested FAMILY SUPPORT: Unable to assess - Family not present PATIENT LEARNS BEST BY: Written Instruction - Hand-outs Verbal Instruction FACTORS AFFECTING LEARNING: None PHYSICAL LIMITATIONS AFFECTING LEARNING: None Electronically Signed By: Ayleen Aj RN In Department: AMBULATORY SURGERY [facility] 08-24-2022 Miscellaneous Notes Lm to confirm procedure for 08-31-22 documented in this encounter [facility] 07-05-2022 Hospital Discharge instructions Patient [...] Address: [facility] [address] [place] [address]- Business (1) When:11/04/2022 08:39:10 Comments:With a stone metabolic work-up [facility] 06-30-2022 Nurse Note Pt denies any nausea at this time. Pt given 3 oz of apple juice per request and tolerating at this time. Pt denies any other s/s at this time, smiling in conversation, 500ml of Nacl completed as well. Pt reports she feels ready to go home. [facility] 06-30-2022 Nurse Note Pt denies [...] Department: AMBULATORY SURGERY documented in this encounter [facility] 06-30-2022 Nurse Note Pt c/o nausea and [...] Pt resting in bed at this time. [facility] 06-30-2022 Nurse Note POST OP [...] By: Wilma Limon In Department: AMBULATORY SURGERY [facility] 06-30-2022 History and physical note SEDATION [...] agreed to proceed. SEDATION GOAL: Anesthesia SIGNATURE: Grayson Peter MD PATIENT NAME: Orion Harper DATE: June 30, 2022 TIME: 11:35 AM [facility] 06-30-2022 History and physical note SEDATION [...] agreed to proceed. SEDATION GOAL: Anesthesia SIGNATURE: Grayson Peter MD PATIENT NAME: Orion Harper DATE: June 30, 2022 TIME: 11:35 AM documented in this encounter [facility] 06-30-2022 Nurse Note PRE OP LEARNING ASSESSMENT PROCEDURE/SURGERY: GI PROCEDURES: EGD READINESS TO LEARN COGNITIVE ABILITY: Alert and oriented MOTIVATION TO LEARN: Interested FAMILY SUPPORT: High - Very involved in pt care PATIENT LEARNS BEST BY: Individual Instruction Written Instruction - Hand-outs Verbal Instruction FACTORS AFFECTING LEARNING: None PHYSICAL LIMITATIONS AFFECTING LEARNING: None Electronically Signed By: Elissa Kwok RN In Department: AMBULATORY SURGERY [facility] 06-23-2022 Miscellaneous Notes Confirmed procedure for 06-30-22 documented in this encounter [facility] 06-15-2022 History of Present illness Narrative Radiology Service Progress Note PATIENT NAME: Orion Harper DATE OF SERVICE: June 15, 2022 [...] 2022 8:08 PM documented in this encounter [facility] 06-14-2022 Miscellaneous Notes Images from the original note were not included. LM riya Atkins to schedule follow up US And to call me with any questions. ----- Message from Grayson Peter MD sent at 06/14/2022 9:35 AM EST ----- Milly, I reviewed the ultrasound done in November This hypodensity was felt to be a benign cyst I will order a follow up ultrasound to be done This is reassuring Grayson Peter MD 06/14/2022 9:35 AM EST Back to [facility] Milly, I reviewed the ultrasound done in November This hypodensity was felt to be a benign cyst I will order a follow up ultrasound to be done This is reassuring Grayson Peter MD 06/14/2022 9:29 AM EST Ia Milly, the CT scan showed Fatty liver [...] needed pending results documented in this encounter [facility] 06-10-2022 History of Present illness Narrative Radiology Service Progress Note PATIENT NAME: Orion Harper DATE OF SERVICE: June 10, 2022 [...] 2022 10:01 AM documented in this encounter [facility] 05-27-2022 History of Present illness Narrative Radiology Service Progress Note PATIENT NAME: Orion Harper DATE OF SERVICE: May 27, 2022 [...] 2022 12:29 PM documented in this encounter [facility] 05-27-2022 History of Present illness Narrative Chief Compliant: Orion Harper, 31 year old female, presents in the office today for fatty liver HPI: Orion Eleuterio Harper is a 31 year old female [...] follow up with Dr. Hylton who is knowledge engineer We discussed seeing endocrinology to help [...] CXR results - XR CHEST 2V FRONTAL/LAT Grayson Peter MD Follow Up: No follow-ups on file. documented in this encounter [facility] 05-03-2022 Evaluation note Encounter Date Diagnosis Assessment Notes Apr, ENGLISH (nonalcoholic steatohepatiti s) (ICD-10 - K75.81) Apr, Abnormal ultrasound (ICD-10 - R93.89) Apr, Elevated liver enzymes (ICD-10 - R74.8) Apr, Liver cyst (ICD-10 - K76.89) [facility] Other Evaluation + Plan note Future Appointments Appointment Date:06/30/2022 10:00:00 AM Scheduled Provider: Location:[facility] Appointment Type:Urology CALL PAT FT Appointment Date:07/05/2022 08:15:00 AM Scheduled Provider: Location:[facility] Appointment Type:Urology FT Diagnostic Tests Pending * [facility]rine [facility]ments Appointment Date:11/07/2022 03:15:00 PM Scheduled Provider:Madhuri MISHRA MD Location:[facility] Appointment [facility]:URO [facility] Future Appointments Appointment Date:12/30/2024 03:15:00 PM Scheduled Provider:Madhuri MISHRA MD Location[facility] Appointment Type:URO Office Visit [facility] [place] evaluation noteNo assessment information available [facility] Work Phone: Evaluation note* Diagnosis Fatty liver- Primary Other chronic nonalcoholic liver disease Bilious vomiting with nausea Right sided abdominal pain Abdominal pain, unspecified site Nausea Nausea alone History of diverticulitis SOB (shortness of breath) Shortness of breath [facility]* Diagnosis Liver lesion- Primary Other specified disorders of liver [facility]* Diagnosis Gastroparesis- Primary [facility]* Diagnosis Gastroparesis- Primary documented in this encounter [facility] note* Diagnosis Irritable bowel syndrome with constipation- Primary Irritable bowel syndrome documented in this encounter [facility] note* Diagnosis Gastroparesis documented [facility]* Diagnosis Gastroparesis- Primary [facility]* Diagnosis SOB (shortness of breath) Shortness of breath [facility]* Diagnosis Liver lesion Other specified disorders of liver [facility] this [facility]* Diagnosis Elevated LFTs Other abnormal blood chemistry documented in this encounter [facility] note* Diagnosis Bilious vomiting with nausea Right sided abdominal pain Abdominal pain, unspecified site Nausea Nausea alone documented in this encounter [facility] note* Diagnosis Nausea Nausea alone documented in this encounter [facility] note* Diagnosis Gastroparesis- Primary documented in this encounter [facility] note* Diagnosis Syncope and collapse- Primary [facility]* Diagnosis Syncope, unspecified syncope type- Primary documented in this encounter [facility] note* Diagnosis Syncope, unspecified syncope type- Primary documented in this encounter [facility] note* Diagnosis Nausea- Primary Nausea alone PUD (peptic ulcer disease) Peptic ulcer, unspecified site, unspecified as acute or chronic, without mention of hemorrhage, perforation, or obstruction Nausea Nausea alone documented in this encounter [facility] note* Diagnosis PUD (peptic ulcer disease)- [...] perforation, or obstruction [facility] Diagnosis Attention deficit hyperactivity disorder, predominantly [...] episode manic (CMS/HCC) [facility] Diagnosis Attention deficit hyperactivity disorder, predominantly [...] episode manic (CMS/HCC) documented [facility] encounter [facility]* Diagnosis Attention deficit hyperactivity [...] without comorbidity) [facility] [...] partial remission, most recent episode manic (CMS/HCC) Well woman exam with routine gynecological exam Routine gynecological examination Dyspareunia in female Cystitis Unspecified cystitis [facility] [...] hyperactivity disorder (ADHD), predominantly inattentive type (CMS/HCC) Acute right ankle pain [facility] [...] [facility]* Diagnosis Obesity (BMI 35.0-39.9 without comorbidity) Attention deficit hyperactivity disorder (ADHD), predominantly inattentive [...] partial remission, most recent episode manic (CMS/HCC) Tremors of nervous system- Primary Mild intermittent asthma without complication (CMS/HCC) [facility]* Diagnosis Cervical radiculopathy- Primary Brachial neuritis or radiculitis nos Attention deficit hyperactivity disorder (ADHD), predominantly inattentive type (CMS/HCC) Anxiety Anxiety state, unspecified Bipolar disorder, [...] partial remission, most recent episode manic (CMS/HCC) Tremors of nervous system- Primary Mild intermittent asthma without complication (CMS/HCC) Hypokalemia- Primary Hypopotassemia Elevated blood sugar Other abnormal glucose Pre-operative clearance Unspecified pre-operative examination Acute pain of left shoulder Obesity (BMI 35.0-39.9 without comorbidity) [facility]* Diagnosis Cervical radiculopathy- Primary Brachial neuritis or radiculitis nos Acute nonintractable headache, unspecified headache type Nausea and vomiting, unspecified vomiting type [facility]* Diagnosis Dyspareunia in female Urethral pain Other symptoms involving urinary system [facility]* [...] partial remission, most recent episode manic (CMS/HCC) Tremors of nervous system- Primary Mild intermittent asthma without complication (CMS/HCC) Moderate persistent asthmatic bronchitis with acute exacerbation (CMS/HCC)- Primary Sprain of anterior talofibular ligament of right ankle, subsequent encounter [facility] Other dyspnea and respiratory abnormality Obesity (BMI 35.0-39.9 without comorbidity) [facility] [...] partial remission, most recent episode manic (CMS/HCC) Tremors of nervous system- Primary Mild intermittent asthma without complication (CMS/HCC) Moderate persistent asthmatic bronchitis with acute exacerbation (CMS/HCC)- Primary Sprain of anterior talofibular ligament of right ankle, subsequent encounter [facility] Other dyspnea and respiratory abnormality Mild intermittent asthma without complication (CMS/HCC)- Primary documented in this encounter [facility]* Diagnosis Attention deficit hyperactivity disorder, [...] partial remission, most recent episode manic (CMS/HCC) Tremors of nervous system- Primary Mild intermittent asthma without complication (CMS/HCC) Moderate persistent asthmatic bronchitis with acute exacerbation (CMS/HCC)- Primary Sprain of anterior talofibular ligament of right ankle, subsequent encounter [facility] Other dyspnea and respiratory abnormality Acute bronchitis with asthma (CMS/HCC)- Primary documented in [facility] encounter [facility]* Diagnosis Elevated LFTs- Primary Other abnormal blood chemistry BRBPR (bright red blood per rectum) Hemorrhage of rectum and anus [facility] Attention deficit hyperactivity disorder, predominantly [...] partial remission, most recent episode manic (CMS/HCC) Tremors of nervous system- Primary Mild intermittent asthma without complication (CMS/HCC) Moderate persistent asthmatic bronchitis with acute exacerbation (CMS/HCC)- Primary Sprain of anterior talofibular ligament of right ankle, subsequent encounter [facility] Other dyspnea and respiratory abnormality Attention deficit hyperactivity disorder (ADHD), predominantly inattentive [...] partial remission, most recent episode manic (CMS/HCC) Tremors of nervous system- Primary Mild intermittent asthma without complication (CMS/HCC) Moderate persistent asthmatic bronchitis with acute exacerbation (CMS/HCC)- Primary Sprain of anterior talofibular ligament of right ankle, subsequent encounter [facility] Other dyspnea and respiratory abnormality Attention deficit hyperactivity disorder (ADHD), predominantly inattentive type (CMS/HCC) Obesity (BMI 35.0-39.9 without comorbidity) documented in this encounter [facility]* Diagnosis Elevated LFTs- Primary Other abnormal blood chemistry [facility] Diagnosis Elevated LFTs- Primary Other abnormal blood chemistry [facility] Diagnosis Attention deficit hyperactivity disorder, predominantly [...] Attention deficit hyperactivity disorder, predominantly inattentive type ([facility]/HCC) Anxiety Anxiety state, unspecified Vitamin D deficiency [...] in partial remission, most recent episode manic ([facility]/HCC) Tremors of nervous system- Primary Mild intermittent asthma without complication (CMS/HCC) Moderate persistent asthmatic bronchitis with acute exacerbation ([facility]/HCC)- Primary Sprain of anterior talofibular ligament of right ankle, subsequent encounter [facility] Other dyspnea and respiratory abnormality Peroneal tendon tear, right, initial encounter- Primary Sprain of anterior talofibular ligament of right ankle, subsequent encounter Osteochondritis dissecans of ankle, right Severe ankle sprain, right, initial encounter documented in this encounter [facility]* Diagnosis Right ankle instability- Primary Other joint derangement, not elsewhere classified, ankle and foot Right ankle instability Other joint derangement, not elsewhere classified, ankle and foot [facility] Diagnosis Sprain of anterior talofibular ligament of right ankle, initial encounter- Primary Right ankle instability Other joint derangement, not elsewhere classified, ankle and foot [facility]* Diagnosis Attention deficit hyperactivity disorder, predominantly inattentive type (CMS/HCC)- Primary Bipolar disorder, in partial remission, most recent episode manic ([facility]) Dizziness Dizziness and giddiness Nonintractable episodic headache, unspecified headache type Attention deficit hyperactivity disorder, predominantly inattentive type (CMS/HCC)- Primary Anxiety Anxiety state, unspecified Bipolar disorder, in partial remission, most recent episode manic ([facility]/HCC) History of cholecystectomy Other acquired absence of organ History of acute pancreatitis Anaphylaxis, sequela Cough, unspecified type Bipolar disorder, in partial remission, most recent episode manic ([facility]/HCC)- Primary Attention deficit hyperactivity disorder (ADHD), predominantly [...] partial remission, most recent episode manic (CMS/HCC) Tremors of nervous system- Primary Mild intermittent asthma without complication (CMS/HCC) Moderate persistent asthmatic bronchitis with acute exacerbation (CMS/HCC)- Primary Sprain of anterior talofibular ligament of right ankle, subsequent encounter [facility] Other dyspnea and respiratory abnormality Anxiety Anxiety state, unspecified Bipolar disorder, in [...] partial remission, most recent episode manic (CMS/HCC) Tremors of nervous system- Primary Mild intermittent asthma without complication (CMS/HCC) Moderate persistent asthmatic bronchitis with acute exacerbation (CMS/HCC)- Primary Sprain of anterior talofibular ligament of right ankle, subsequent encounter [facility] Other dyspnea and respiratory abnormality Cervical radiculopathy due to degenerative joint disease of spine- Primary [facility] Diagnosis ENGLISH (nonalcoholic steatohepatitis)- Primary Other chronic nonalcoholic liver disease Right ankle instability Other joint derangement, not elsewhere classified, ankle and foot [facility] Diagnosis Attention deficit hyperactivity disorder, predominantly [...] partial remission, most recent episode manic (CMS/HCC) Tremors of nervous system- Primary Mild intermittent asthma without complication (CMS/HCC) Moderate persistent asthmatic bronchitis with acute exacerbation (CMS/HCC)- Primary Sprain of anterior talofibular ligament of right ankle, subsequent encounter [facility] Other dyspnea and respiratory abnormality Peroneal tendon tear, right, initial encounter- Primary Right foot pain Pain in soft tissues of limb Sprain of anterior talofibular ligament of right ankle, subsequent encounter Osteochondritis dissecans of ankle, right Right ankle instability Other joint derangement, not elsewhere classified, ankle and foot [facility] [...] partial remission, most recent episode manic (CMS/HCC) Tremors of nervous system- Primary Mild intermittent asthma without complication (CMS/HCC) Moderate persistent asthmatic bronchitis with acute exacerbation (CMS/HCC)- Primary Sprain of anterior talofibular ligament of right ankle, subsequent encounter [facility] Other dyspnea and respiratory abnormality Pre-op evaluation H/O female dyspareunia Pelvic pain Other endometriosis H/O: hysterectomy Acquired absence of both cervix and uterus [facility] N[facility] - Reported* Type Description Date Medical History Anxiety Medical History Depression Medical History Diverticulosis Medical History bipolar Surgical History C section Surgical History hysterectomy Hospitalization History see above Hospitalization History diverticulitis 01/24/18 Hospitalization History NONE ON THE LAST YEAR [facility] Other Hospital course Narrative No data available for this section [facility] No data available for this section [facility] No data available for this section [facility] Outpatient Procedure (Routine) - Authorized Specialty Diagnoses / Procedures Referred By Norma kennedy Referred To Contact [facility] Diagnoses Bilious vomiting with nausea Right sided abdominal pain Procedures EGD DIAGNOSTIC ESOPHAGOGASTRODUODENOSC OPY [place] [address] [place] [address] [facility] [address] [place], [place] [id number] Referral ID Status Reason Start Date Expiration Date Visits Requested Visits Authorized [id number] Authorized Auto-Generat ed Referral 05/27/2022 05/27/2023 1 1 * MRI/CT (Routine) - Authorized Specialty Diagnoses / Procedures Referred By Norma kennedy Referred To Contact CT IMAGING Diagnoses Bilious vomiting with nausea Right sided abdominal pain Nausea Procedures CT ABD/PEL WO IVCON CT ABD & PEL[place] [address] [place] [address] Ct Imaging Referral ID Status Reason Start Date Expiration Date Visits Requested Visits Authorized [id number] Authorized Auto-Generat ed Referral 05/27/2022 06/26/2023 1 1 [facility] for referral (narrative)* Diagnostic Procedure Only (Routine) - Authorized Specialty Diagnoses / Procedures Referred By Contac t Referred To Contact US IMAGING Diagnoses Liver lesion Procedures US ABD RT UPPER QUADRANT US ABDOMINAL REAL TIME W/IMAGE LIMITED Grayson Peter [place] [id number] [place] [phone] Us Imaging Referral ID Status Reason Start Date Expiration Date Visits Requested Visits Authorized [id number] Authorized Auto-Generat ed Referral 06/14/2022 07/14/2023 1 1 [facility] for referral (narrative)* Diagnostic Procedure Only (Routine) - Closed Specialty Diagnoses / Procedures Referred By Contac t Referred To Contact US IMAGING Diagnoses Liver lesion Procedures US ABD RT UPPER QUADRANT US ABDOMINAL REAL TIME W/IMAGE LIMITED Grayson Peter [place] [id number] [place] [phone] Us Imaging [id number] Referral ID Status Reason Start Date Expiration Date V isits Requested Visits Authorized [id number] Closed Auto-Generate d Referral 06/14/2022 07/14/2023 1 1 [facility] for referral (narrative)* Diagnostic Procedure Only (Routine) - Closed Specialty Diagnoses / Procedures Referred By Contac t Referred To Contact US IMAGING Diagnoses Elevated LFTs Procedures US ABD RT UPPER QUADRANT US ABDOMINAL REAL TIME W/IMAGE LIMITED Grayson Peter [place] [id number] [place] [phone] [place] [address] Referral ID Status Reason Start Date Expiration Date V isits Requested Visits Authorized [id number] Closed Auto-Generate d Referral 11/24/2021 12/24/2022 1 1 [facility] for referral (narrative)* Diagnostic Procedure Only (Routine) - Closed Specialty Diagnoses / Procedures Referred By Contac t Referred To Contact MOLECULAR & FUNCTIONAL IMAGING Diagnoses Nausea Procedures NM GASTRIC EMPTYING SOLID GASTRIC [place] [address] [place] [address] Molecular & Functional Imaging [address] [id number] Referral ID Status Reason Start Date Expiration Date V isits Requested Visits Authorized [id number] Closed Auto-Generate d Referral 08/31/2022 09/30/2023 1 1 [facility] for referral (narrative)* Outpatient Procedure (Routine) - Authorized Specialty Diagnoses / Procedures Referred By Contac t Referred To Contact [facility] [place] Diagnoses Gastroparesis Procedures ECG COMPLETE ECG ROUTINE ECG W/LEAST 12 LDS W/I&R Solo Mora MD [address] [place] [address] Formerly [facility] [place] [address] Referral ID Status Reason Start Date Expiration Date Visits Requested Visits Authorized [id number] Authorized Auto-Generat ed Referral 11/02/2023 11/01/2024 1 1 [facility] for referral (narrative)* Outpatient Procedure (Routine) - Authorized Specialty Diagnoses / Procedures Referred By Contac t Referred To Contact HEART [facility] [place] Diagnoses Syncope and collapse Procedures ECG COMPLETE ECG ROUTINE ECG W/LEAST 12 LDS W/I&R Solo Mora MD [address] [place] [address] [address] Referral ID Status Reason Start Date Expiration Date Visits Requested Visits Authorized [id number] Authorized Auto-Generat ed Referral 12/19/2023 12/18/2024 1 1 [facility] for referral (narrative)* Diagnostic Procedure Only (Routine) - Closed Specialty Diagnoses / Procedures Referred By Contac t Referred To Contact MOLECULAR & FUNCTIONAL IMAGING Diagnoses Nausea Procedures NM GASTRIC EMPTYING SOLID GASTRIC [place]MP[place] [id number] [place] [address] Molecular & Functional Imaging [address] [id number] Referral ID Status Reason Start Date Expiration Date V isits Requested Visits Authorized [id number] Closed Auto-Generate d Referral 08/31/2022 09/30/2023 1 1 * Outpatient Procedure (Routine) - Closed Specialty Diagnoses / Procedures Referred By Norma kennedy Referred To Contact [facility] Diagnoses PUD (peptic ulcer disease) Procedures EGD DIAGNOSTIC ESOPHAGOGASTRODUODENOSC OPY [place] [address] [place] [address] [facility] [address] [address] Referral ID Status Reason Start Date Expiration Date V isits Requested Visits Authorized [id number] Closed Auto-Generate d Referral 06/30/2022 07/01/2023 1 1 [facility] for referral (narrative)* Outpatient Procedure (Routine) - Closed Specialty Diagnoses / Procedures Referred By Norma kennedy Referred To Contact [facility] Diagnoses PUD (peptic ulcer disease) Procedures EGD DIAGNOSTIC ESOPHAGOGASTRODUODENOSC OPY TRANSORAL [place] [address] [place] [address] [address] Referral ID Status Reason Start Date Expiration Date V isits Requested Visits Authorized [id number] Closed Auto-Generate d Referral 06/30/2022 07/01/2023 1 1 * Outpatient Procedure (Routine) - Closed Specialty Diagnoses / Procedures Referred By Contac t Referred To Contact [facility] Diagnoses Bilious vomiting with nausea Right sided abdominal pain Procedures EGD DIAGNOSTIC ESOPHAGOGASTRODUODENOSC OPY [place]ANS[place] [address] [place] [address] [address] Referral ID Status Reason Start Date Expiration Date V isits Requested Visits Authorized [id number] Closed Auto-Generate d Referral 05/27/2022 05/27/2023 1 1 [facility] for referral (narrative)* Outpatient Procedure (Routine) - Authorized Specialty Diagnoses / Procedures [facility] Diagnoses BRBPR (bright red blood per rectum) Procedures COLONOSCOPY DIAGNOSTIC COLONOSCOPY FLX DX W/COLLJ SPEC WHEN PFRMD Iliana Mercado PA-C [address] [place] [address] [address] Referral ID Status Reason Start Date Expiration Date Visits Requested Visits Authorized [id number] Authorized Auto-Generat ed Referral 04/26/2024 04/26/2025 1 1 * Outpatient Procedure (Routine) - Authorized Specialty Diagnoses / Procedures [facility] To [facility] Diagnoses Elevated LFTs Procedures DDI VIBRATION CONTROLLED TRANSIENT ELASTOGRAPHY (VCTE) LIVER ELASTOGRAPHY W/O IMAG W/I&R Iliana Mercado PA-C [address] [place] [address] [address] Referral ID Status Reason Start Date Expiration Date Visits Requested Visits Authorized [id number] Authorized Auto-Generat ed Referral 04/26/2024 04/26/2025 1 1 [facility] for referral (narrative)* Outpatient Procedure (Routine) - Pending Review Specialty Diagnoses / Procedures Referred By Norma t Referred To Contact [facility] Diagnoses ENGLISH (nonalcoholic steatohepatitis) Procedures LIVER BIOPSY NEEDLE BIOPSY LIVER NEEDLE PERCUTANEOUS Rosario Mcconnell I, MD 850 [facility] [address] [place] [address] [facility] [place] [address] [place] [address] Referral ID Status Reason Start Date Expiration Date Visits Requested Visits Authorized [id number] Pending Review Auto-Generat ed Referral 05/14/2024 05/14/2025 1 1 [facility] for visit NarrativePATIENT HERE AT THE REQUEST OF DR. HAGEN FOR ENGLISH & ABNORMAL US. ULTRASOUND AND LABS IN REFERRAL. PATIENT STATES SHE FEELS LETHARGIC & HAS OCCASIONAL ABDOMINAL PAINNew Rochelle Contractors AID Other [facility] Narrative* Diagnostic Procedure Only (Routine) - Closed Specialty Diagnoses / Procedures Referred By Contac t Referred To Contact US IMAGING Diagnoses Liver lesion Procedures US ABD RT UPPER QUADRANT US ABDOMINAL REAL TIME W/[place] [address] [place] [address] [place] [address] Referral ID Status Reason Start Date Expiration Date V isits Requested Visits Authorized [id number] Closed Auto-Generate d Referral 06/14/2022 07/14/2023 1 1 [facility] for visit Narrative* Diagnostic Procedure Only (Routine) - Closed Specialty Diagnoses / Procedures Referred By Contac t Referred To Contact US IMAGING Diagnoses Elevated LFTs Procedures US ABD RT UPPER QUADRANT US ABDOMINAL REAL TIME W/[place] [address] [place] [address] [place] [address] Referral ID Status Reason Start Date Expiration Date V isits Requested Visits Authorized [id number] Closed Auto-Generate d Referral 11/24/2021 12/24/2022 1 1 [facility] for visit Narrative* Diagnostic Procedure Only (Routine) - Closed Specialty Diagnoses / Procedures Referred By Norma t Referred To Contact MOLECULAR & FUNCTIONAL IMAGING Diagnoses Nausea Procedures NM GASTRIC EMPTYING SOLID [place]STR[place] [address] [place] [address] Molecular & Functional Imaging [address] [place] [address] Referral ID Status Reason Start Date Expiration Date V isits Requested Visits Authorized [id number] Closed Auto-Generate d Referral 08/31/2022 09/30/2023 1 1 [facility] for visit Narrative* Outpatient Procedure (Routine) - Closed Specialty Diagnoses / Procedures Referred By Norma kennedy Referred To Contact [facility] Diagnoses PUD (peptic ulcer disease) Procedures EGD DIAGNOSTIC ESOPHAGOGASTRODUODENOSC OPY TRANS[place] [address] [place] [address] [facility] [place] [address] [place] [address] Referral ID Status Reason Start Date Expiration Date V isits Requested Visits Authorized [id number] Closed Auto-Generate d Referral 06/30/2022 07/01/2023 1 1 [facility] for visit Narrative* Outpatient Procedure (Routine) - Closed Specialty Diagnoses / Procedures Referred By Norma kennedy Referred To Contact [facility] Diagnoses Bilious vomiting with nausea Right sided abdominal pain Procedures EGD DIAGNOSTIC ESOPHAGOGASTRODUODENOSC OPY [place]ANS[place] [address] [place] [address] [facility] [place] [address] [place] [address] Referral ID Status Reason Start Date Expiration Date V isits Requested Visits Authorized [id number] Closed Auto-Generate d Referral 05/27/2022 05/27/2023 1 1 [facility] for visit Narrative* Rehabilitation - Outpatient (Routine) - Authorized Specialty Diagnoses / Procedures Referred By Contac t Referred To Contact Physical Therapy Diagnoses Cervical radiculopathy Procedures [place] OFFICE/OUTPATIENT NEW HIGH [facility] 60 MINUTES Giovani Hagen MD 112 [facility] [address] [place] [address] Phone: tel: fax: Lupe Zhen T, PT 112 [facility] [address] [place] [address] Phone: tel: fax: Referral ID Status Reason Start Date Expiration Date Visits Requested Visits Authorized [id number] Authorized Specialty Services Required 01/25/2024 10/21/2024 25 25 [facility] - Outpatient (Routine) - Authorized Specialty Diagnoses / Procedures Referred By Norma kennedy Referred To Contact Physical Therapy Diagnoses Cervical radiculopathy Unspecified injury of right ankle, subsequent encounter Procedures [place] OFFICE/OUTPATIENT NEW HIGH [facility] 60 MINUTES Giovani Hagen MD 112 [facility] [address] [place] [address] Phone: tel: fax: Zhen Burgess, PT 112 [facility] [address] [place] [address] Phone: tel: fax: Referral ID Status Reason Start Date Expiration Date Visits Requested Visits Authorized [id number] Authorized Specialty Services Required 01/25/2024 10/21/2024 25 25 [facility]* Outpatient Procedure (Routine) - Closed Specialty Diagnoses / Procedures Referred By Norma kennedy Referred To Contact [facility] Diagnoses Elevated LFTs Procedures DDI VIBRATION CONTROLLED TRANSIENT ELASTOGRAPHY (VCTE) LIVER ELASTOGRAPHY W/O IMAG W/I&R Iliana Mercado PA-C [address] [place] [address] [facility] [address] [place] [address] Referral ID Status Reason Start Date Expiration Date V isits Requested Visits Authorized [id number] Closed Auto-Generate d Referral 04/26/2024 04/26/2025 1 1 [facility] Summary Purpose Family History No [...] Referral Specialty Diagnoses / Procedures Referred By Contac t Referred To Contact Radiology Diagnoses Cervical radiculopathy Procedures MR cervical spine wo contrast Giovani Hagen MD [address] [place] [address] Referral ID Status Reason Start Date Expiration Date V isits Requested Visits Authorized [id number] Pending Review 01/09/2024 07/07/2024 1 1 Specialty Diagnoses / Procedures Referred By Contac t Referred To Contact Diagnoses Attention deficit hyperactivity disorder (ADHD), predominantly inattentive type (CMS/HCC) Giovani Hagen MD [address] [address] Referral ID Status Reason Start Date Expiration Date Visits Re quested Visits Authorized [id number] Closed 1 1 Specialty Diagnoses / Procedures Referred By Contac t Referred To Contact Diagnoses Attention deficit hyperactivity disorder (ADHD), predominantly inattentive type (CMS/HCC) Giovani Hagen MD [address] [address] Referral ID Status Reason Start Date Expiration Date V isits Requested Visits Authorized [id number] Pending Review 01/08/2024 07/06/2024 1 1 Specialty Diagnoses / Procedures Referred By Contac t Referred To Contact [facility] Diagnoses Syncope, unspecified syncope type Procedures CARDIOVASCULAR MEDICINE OP FOLLOW UP APPT ORDER Solo Mora MD [address] [place] [address] [facility] [address] [address] Referral ID Status Reason Start Date Expiration Date Visits Requested Visits Authorized [id number] Ref Not Required PCP Requested Referral 12/28/2023 12/27/2024 1 1 Specialty Diagnoses / Procedures Referred By Contac t Referred To Contact [facility] [place] Diagnoses Syncope, unspecified syncope type Procedures STRESS ECHO TREADMILL ECHO TTHRC R-T 2D W/WO M-MODE COMPLETE REST&ST Solo Mora MD [facility] [place] [id number] Formerly [facility] [address] [address] Referral ID Status Reason Start Date Expiration Date Visits Requested Visits Authorized [id number] Authorized Auto-Generat ed Referral 12/19/2023 12/18/2024 1 1 Specialty Diagnoses / Procedures Referred By Contac t Referred To Contact CT IMAGING Diagnoses Bilious vomiting with nausea Right sided abdominal pain Nausea Procedures CT ABD/PEL WO IVCON CT ABD & PELVIS [place] [address] [place] [address] [address] [facility] [place] [address] Referral ID Status Reason Start Date Expiration Date V isits Requested Visits Authorized [id number] Closed Auto-Generate d Referral 05/27/2022 06/26/2023 1 1 Additional Source Comments INFORMATION SOURCE (unrecogn ized section and content) DATE CREATED [facility] [place] DATE CREATED AUTHOR AUTHOR'S ORGANIZ ATION 08/23/2021 [facility] dical Specialist DATE CREATED AUTHOR AUTHOR'S ORGANIZ ATION 07/17/2022 [facility] pital DATE CREATED AUTHOR AUTHOR'S ORGANIZ ATION 10/31/2022 [facility] DATE CREATED AUTHOR AUTHOR'S ORGANIZ ATION 03/22/2023 [facility] DATE CREATED AUTHOR AUTHOR'S ORGANIZ ATION 03/28/2023 [facility] DATE CREATED AUTHOR AUTHOR'S ORGANIZ ATION 12/29/2023 [facility] DATE CREATED AUTHOR AUTHOR'S ORGANIZ ATION 04/07/2024 [facility] DATE CREATED AUTHOR AUTHOR'S ORGANIZ ATION 04/12/2024 [facility] DATE CREATED AUTHOR AUTHOR'S ORGANIZ ATION 05/04/2024 [facility] DATE CREATED AUTHOR AUTHOR'S ORGANIZ ATION 05/09/2024 [facility] DATE CREATED AUTHOR AUTHOR'S ORGANIZ ATION 05/16/2024 [facility] dical Specialists EPIC Care Teams (unrecognized sec tion and content) Team Status: Active Member Role Status Dates Giovani Hagen MD Primary Care Provider Active Team Status: Inactive Member Role Status Dates Erwin Hylton MD Attending Provider Active Giovani Hagen MD Primary Care Provider Active [employer] Relationship Specialty Start Date End Date HieuGiovani Mabalay [address] [place] [address] [place] [address] PCP - General Family Medicine 03/27/19 [employer]er Relationship Specialty Start Date End Date HieuGiovani Mabalay [address] [place] [address] [place] [address] PCP - General Family Medicine 03/27/19 [employer]er Relationship Specialty Start Date End Date MolinaGiovani Mabalay [address] [place] [address] [place] [address] PCP - General Family Medicine 03/27/19 [employer] Designer Relationship Specialty Start Date End Date MolinaGiovani Mabalay [address] [place] [address] [place] [address] PCP - General Family Medicine 03/27/19 [employer] Designer Relationship Specialty Start Date End Date HieuGiovani Mabalay [address] [place] [address] [place] [address] PCP - General Family Medicine 03/27/19 [employer] Designer Relationship Specialty Start Date End Date HieuGiovani Mabalay [address] [place] [address] [place] [address] PCP - General Family Medicine 03/27/19 [employer] Designer Relationship Specialty Start Date End Date HieuKiranen Mabalay [address] [place] [address] [place] [address] PCP - General Family Medicine 03/27/19 [employer] Designer Relationship Specialty Start Date End Date Giovani Hagen [address] [place] [address] [place] [address] PCP - General Family Medicine 03/27/19 [employer] Designer Relationship Specialty Start Date End Date Giovani Hagen [address] [place] [address] [place] [address] PCP - General Family Medicine 03/27/19 [employer] Designer Relationship Specialty Start Date End Date Giovani Hagen [address] [place] [address] [place] [address] PCP - General Family Medicine 03/27/19 [employer]er Relationship Specialty Start Date End Date Hieu Kiranbety Rust [address] [place] [address] [place] [address] PCP - General Family Medicine 03/27/19 [employer] Designer Relationship Specialty Start Date End Date HieuGiovani [address] [place] [address] [place] [address] PCP - General Family Medicine 03/27/19 [employer] Designer Relationship Specialty Start Date End Date HieuGiovani [address] [place] [address] [place] [address] PCP - General Family Medicine 03/27/19 [employer] Communities Designer Relationship Specialty Start Date End Date Hieu Giovani Rust [address] [place] [address] [place] [address] PCP - General Family Medicine 03/27/19 [employer] Designer Relationship Specialty Start Date End Date Giovani Hagen MD [address] [place] [address] [place] [address] PCP - General Family Medicine 03/27/19 [employer] Communities Designer Relationship Specialty Start Date End Date Giovani Hagen MD [address] [place] [address] [place] [address] PCP - General Family Medicine 03/27/19 [employer]ities Designer Relationship Specialty Start Date End Date Giovani Hagen MD [address] [place] [address] [place] [address] PCP - General Family Medicine 03/27/19 [employer] Designer Relationship Specialty Start Date End Date Giovani Hagen MD [address] [place] [address] [place] [address] PCP - General Family Medicine 03/27/19 [employer]ities Designer Relationship Specialty Start Date End Date Giovani Hagen MD [address] [place] [address] [place] [address] PCP - General Family Medicine 03/27/19 [employer] Communities Designer Relationship Specialty Start Date End Date Giovani Hagen MD [address] [place] [address] [place] [address] PCP - General Family Medicine 03/27/19 [employer]ities Designer Relationship Specialty Start Date End Date Giovani Hagen MD [address] [place] [address] [place] [address] PCP - General Family Medicine 03/27/19 [employer]ities Designer Relationship Specialty Start Date End Date Giovani Hagen MD [address] [place] [address] [place] [address] PCP - General Family Medicine 03/27/19 [employer] Communities Designer Relationship Specialty Start Date End Date Giovani Hagen MD [address] [place] [address] [place] [address] PCP - General Family Medicine 03/27/19 [employer] Communities Designer Relationship Specialty Start Date End Date Giovani Hagen MD [address] [place] [address] [place] [address] PCP - General Family Medicine 03/27/19 [employer] Communities Designer Relationship Specialty Start Date End Date Giovani Hagen MD [address] [place] [address] [place] [address] PCP - General Family Medicine 03/27/19 [employer] Communities Designer Relationship Specialty Start Date End Date Giovani Hagen MD [address] [place] [address] [place] [address] PCP - General Family Medicine 03/27/19 [employer] Communities Designer Relationship Specialty Start Date End Date Giovani Hagen MD [address] [place] [address] [place] [address] PCP - General Family Medicine 03/27/19 [employer] Communities Designer Relationship Specialty Start Date End Date Giovani Hagen MD [address] [place] [address] [place] [address] PCP - Medical [place] [employer] 10/22/18 04/23/99 Giovani Hagen MD [address] [place] [address] [place] [address] PCP - General Family Medicine 08/30/22 [employer] Communities Designer Relationship Specialty Start Date End Date Giovani Hagen MD [address] [place] [address] [place] [address] PCP - Medical [place] [employer] 10/22/18 04/23/99 Giovani Hagen MD [address] [place] [address] [place] [address] PCP - General Family Medicine 08/30/22 [employer] Communities Designer Relationship Specialty Start Date End Date Giovani Hagen MD [address] [place] [address] [place] [address] PCP - Medical [place] 10/22/18 04/23/99 Giovani Hagen MD [address] [place] [address] [place] [address] PCP - General [facility] Medicine 08/30/22 [employer] Communities Designer Relationship Specialty Start Date End Date Giovani Hagen MD [address] [place] [address] [place] [address] PCP - Medical [place] 10/22/18 04/23/99 Giovani Hagen MD [address] [place] [address] [place] [address] PCP - General [facility] Medicine 08/30/22 [employer] Communities Designer Relationship Specialty Start Date End Date Giovani Hagen MD [address] [place] [address] [place] [address] PCP - Medical [place] 10/22/18 04/23/99 Giovani Hagen MD [address] [place] [address] [place] [address] PCP - General Family Medicine 08/30/22 [employer]ities Designer Relationship Specialty Start Date End Date Giovani Hagen MD [address] [place] [address] [place] [address] PCP - Medical [place] 10/22/18 04/23/99 Giovani Hagen MD [address] [place] [address] [place] [address] PCP - General Family Medicine 08/30/22 [employer] Communities Designer Relationship Specialty Start Date End Date Giovani Hagen MD [address] [place] [address] [place] [address] PCP - Medical [place] 10/22/18 04/23/99 Giovani Hagen MD [address] [place] [address] [place] [address] PCP - General [facility] Medicine 08/30/22 [employer] Communities Designer Relationship Specialty Start Date End Date Giovani Hagen MD [address] [place] [address] [place] [address] PCP - Medical [place] 10/22/18 04/23/99 Giovani Hagen MD [address] [place] [address] [place] [address] PCP - General [facility] Medicine 08/30/22 [employer] Communities Designer Relationship Specialty Start Date End Date Giovani Hagen MD [address] [place] [address] [place] [address] PCP - Medical [place] 10/22/18 04/23/99 Giovani Hagen MD [address] [place] [address] [place] [address] PCP - General Family Medicine 08/30/22 [employer] Communities Designer Relationship Specialty Start Date End Date Giovani Hagen MD [address] [place] [address] [place] [address] PCP - Medical [place] 10/22/18 04/23/99 Giovani Hagen MD [address] [place] [address] [place] [address] PCP - General Family Medicine 08/30/22 [employer] Communities Designer Relationship Specialty Start Date End Date Giovani Hagen MD [address] [place] [address] [place] [address] PCP - Medical [place] 10/22/18 04/23/99 Giovani aHgen MD [address] [place] [address] [place] [address] PCP - General [facility] Medicine 08/30/22 [employer] Communities Designer Relationship Specialty Start Date End Date Giovani Hagen MD [address] [place] [address] [place] [address] PCP - Medical [place] 10/22/18 04/23/99 Giovani Hagen MD [address] [place] [address] [place] [address] PCP - General [facility] Medicine 08/30/22 [employer] Communities Designer Relationship Specialty Start Date End Date Giovani Hagen MD [address] [place] [address] [place] [address] PCP - Medical [place] 10/22/18 04/23/99 Giovani Hagen MD [address] [address] [place] [address] PCP - General Family Medicine 08/30/22 S[employer] Communities Designer Relationship Specialty Start Date End Date Giovani Hagen MD [address] [place] [address] [place] [address] PCP - Medical [place] 10/22/18 04/23/99 Giovani Hagen MD [address] [address] [place] [address] PCP - General Family Medicine 08/30/22 [employer] Communities Designer Relationship Specialty Start Date End Date Giovani Hagen MD [address] [place] [address] [place] [address] PCP - Medical [place] 10/22/18 04/23/99 Giovani Hagen MD [address] [place] [address] [place] [address] PCP - General [facility] Medicine 08/30/22 [employer]ities Designer Relationship Specialty Start Date End Date Giovani Hagen MD [address] [place] [address] [place] [address] PCP - Medical [place] 10/22/18 04/23/99 Giovani Hagen MD [address] [place] [address] [place] [address] PCP - General [facility] Medicine 08/30/22 [employer]ities Designer Relationship Specialty Start Date End Date Giovani Hagen MD [address] [place] [address] [place] [address] PCP - Medical [place] 10/22/18 04/23/99 Giovani Hagen MD [address] [place] [address] [place] [address] PCP - General Family Medicine 08/30/22 [employer]ities Designer Relationship Specialty Start Date End Date Giovani Hagen MD [address] [place] [address] [place] [address] PCP - Medical [place] 10/22/18 04/23/99 Giovani Hagen MD [address] [place] [address] [place] [address] PCP - General Family Medicine 08/30/22 [employer]ities [employer]er Relationship Specialty Start Date End Date Giovani Hagen MD [address] [place] [address] PCP - Medical [place] 10/22/18 04/23/99 Giovani Hagen MD [address] [place] [address] PCP - General [facility] Medicine 08/30/22 [employer]ustainable Communities Designer Relationship Specialty Start Date End Date Giovani Hagen MD [address] [place] [address] PCP - Medical [place] 10/22/18 04/23/99 Giovani Hagen MD [address] [place] [address] PCP - General [facility] Medicine 08/30/22 Sustainable Communities Designer Relationship Specialty Start Date End Date Giovani Hagen MD [address] [place] [address] PCP - Medical [place] 10/22/18 04/23/99 Giovani Hagen MD [address] [place] [address] PCP - General Family Medicine 08/30/22 Sustainable Communities Designer Relationship Specialty Start Date End Date Giovani Hagen MD [address] [place] [address] PCP - Medical [place] 10/22/18 04/23/99 Giovani Hagen MD [address] [place] [address] PCP - General Family Medicine 08/30/22 Sustainable Communities Designer Relationship Specialty Start Date End Date Giovani Hagen MD [address] [place] [address] PCP - Medical [employer] 10/22/18 04/23/99 Giovani Hagen MD [address] [place] [address] PCP - General Family Medicine 08/30/22 [employer]ustainable Communities Designer Relationship Specialty Start Date End Date Giovani Hagen MD [address] [facility] [address] [place] [address] PCP - Medical [place] 10/22/18 04/23/99 Giovani Hagen MD [address] [facility] [address] [place] [address] PCP - General [facility] Medicine 08/30/22 Sustainable Communities Designer Relationship Specialty Start Date End Date Giovani Hagen MD [address] [facility] [address] [place] [address] PCP - General Family Medicine 03/27/19 [employer] Communities Designer Relationship Specialty Start Date End Date Giovani Hagen MD [address] [place] [address] PCP - Medical [place] 10/22/18 04/23/99 Giovani Hagen MD [address] [place] [address] PCP - General Family Medicine 08/30/22 Sustainable Communities Designer Relationship Specialty Start Date End Date Giovani Hagen MD [address] [place] [address] PCP - General Family Medicine 03/27/19 Deena Lyn, ISABEL [address] [place] [address] Referring Family Medicine 04/03/24 [employer] Communities Designer Relationship Specialty Start Date End Date Giovani Hagen MD [address] [place] [address] PCP - General Family Medicine 03/27/19 Deena Lyn, ISABEL [address] [place] [address] Referring Family Medicine 04/03/24 Sustainable Communities Designer Relationship Specialty Start Date End Date Giovani Hagen MD [address] [place] [address] PCP - Medical [place] [employer] 10/22/18 04/23/99 Giovani Hagen MD [address] [place] [address] PCP - General Family Medicine 08/30/22 Sustainable Communities Designer Relationship Specialty Start Date End Date Giovani Hagen MD [address] [place] [address] PCP - Medical [place] [employer] 10/22/18 04/23/99 Giovani Hagen MD [address] [place] [address] PCP - General Family Medicine 08/30/22 Sustainable Communities Designer Relationship Specialty Start Date End Date Giovani Hagen MD [address] [place] [address] PCP - Medical [place] [employer] 10/22/18 04/23/99 Giovani Hagen MD [address] [place] [address] PCP - General Family Medicine 08/30/22 Sustainable Communities Designer Relationship Specialty Start Date End Date Giovani Hagen MD [address] [place] [address] PCP - Medical [place] [employer] 10/22/18 04/23/99 Giovani Hagen MD [address] [place] [address] PCP - General Family Medicine 08/30/22 Sustainable Communities Designer Relationship Specialty Start Date End Date Giovani Hagen MD [address] [place] [address] PCP - Medical [place] [employer] 10/22/18 04/23/99 Giovani Hagen MD [address] [place] [address] PCP - General Family Medicine 08/30/22 Sustainable Communities Designer Relationship Specialty Start Date End Date Giovani Hagen MD [address] [place] [address] PCP - Medical [place] [employer] 10/22/18 04/23/99 Giovani Hagen MD [address] [place] [address] PCP - General Family Medicine 08/30/22 Sustainable Communities Designer Relationship Specialty Start Date End Date Giovani Hagen MD [address] [place] [address] PCP - Medical [place] [employer] 10/22/18 04/23/99 Giovani Hagen MD [address] [place] [address] PCP - General Family Medicine 08/30/22 Sustainable Communities Designer Relationship Specialty Start Date End Date Giovani Hagen MD [address] [address] [place] [address] PCP - General Family Medicine 03/27/19 Deena Lyn CNP [address] [place] [address] [facility] Family Medicine 04/03/24 Sustainable Communities Designer Relationship Specialty Start Date End Date Giovani Hagen MD [address] [place] [address] PCP - Medical [place] [employer] 10/22/18 04/23/99 Giovani Hagen MD [address] [place] [address] PCP - General Family Medicine 08/30/22 Sustainable Communities Designer Relationship Specialty Start Date End Date Giovani Hagen MD [address] [place] [address] PCP - Medical [place] [employer] 10/22/18 04/23/99 Giovani Hagen MD [address] [place] [address] PCP - General Family Medicine 08/30/22 Sustainable Communities Designer Relationship Specialty Start Date End Date Giovani Hagen MD [address] [place] [address] PCP - Medical [facility] 10/22/18 04/23/99 Giovani Hagen MD [address] [place] [address] PCP - General Family Medicine 08/30/22 Sustainable Communities Designer Relationship Specialty Start Date End Date Giovani Hagen MD [address] [place] [address] PCP - General Family Medicine 03/27/19 Deena Lyn, ISABEL [address] [place] [address] Referring Family Medicine 04/03/24 Sustainable Communities Designer Relationship Specialty Start Date End Date Giovani Hagen MD [address] [place] [address] PCP - General Family Medicine 03/27/19 Deena Lyn, ISABEL [address] [place] [address] Referring Family Medicine 04/03/24 Sustainable Communities Designer Relationship Specialty Start Date End Date Giovani Hagen MD [address] [place] [address] PCP - General Family Medicine 03/27/19 Deena Lyn, ISABEL [address] [place] [address] Referring Family Medicine 04/03/24 Sustainable Communities Designer Relationship Specialty Start Date End Date Giovani Hagen MD [address] [place] [address] PCP - Medical [place] [employer] 10/22/18 04/23/99 Giovani Hagen MD [address] [place] [address] PCP - General Family Medicine 08/30/22 Sustainable Communities Designer Relationship Specialty Start Date End Date iGovani Hagen MD [address] [place] [address] PCP - Medical [place] [employer] 10/22/18 04/23/99 Giovani Hagen MD [address] [place] [address] PCP - General Family Medicine 08/30/22 Sustainable Communities Designer Relationship Specialty Start Date End Date Giovani Hagen MD [address] [place] [address] PCP - General Family Medicine 03/27/19 Deena Lyn, ISABEL [address] [place] [address] Referring Family Medicine 04/03/24 Sustainable Communities Designer Relationship Specialty Start Date End Date Giovani Hagen MD [address] [place] [address] PCP - General Family Medicine 03/27/19 Deena Lyn, ISABEL [address] [place] [address] Referring Family Medicine 04/03/24 Sustainable Communities Designer Relationship Specialty Start Date End Date Giovani Hagen MD [address] [place] [address] PCP - Medical [place] [employer] 10/22/18 04/23/99 Giovani Hagen MD [address] [place] [address] PCP - General Family Medicine 08/30/22 Sustainable Communities Designer Relationship Specialty Start Date End Date Giovani Hagen MD [address] [place] [address] PCP - Medical [place] [employer] 10/22/18 04/23/99 Giovnai Hagen MD [address] [place] [address] PCP - General Family Medicine 08/30/22 Sustainable Communities Designer Relationship Specialty Start Date End Date Giovani Hagen MD [address] [place] [address] PCP - General Family Medicine 03/27/19 Deena Lyn CNP [address] [place] [address] Referring Family Medicine 04/03/24 Sustainable Communities Designer Relationship Specialty Start Date End Date Giovani Hagen MD [address] [place] [address] PCP - Medical [place] [employer] 10/22/18 04/23/99 Giovani Hagen MD [address] [place] [address] PCP - General Family Medicine 08/30/22 Sustainable Communities Designer Relationship Specialty Start Date End Date Giovani Hagen MD [address] [place] [address] PCP - Medical [place] [employer] 10/22/18 04/23/99 Giovani Hagen MD [address] [facility] [address] [place] [address] PCP - General Family Medicine 08/30/22 Sustainable Communities Designer Relationship Specialty Start Date End Date Giovani Hagen MD [address] [facility] [address] [place] [address] PCP - General Family Medicine 03/27/19 Deena Lyn CNP [address] [facility] [address] [place] [address] Referring Family Medicine 04/03/24 Source Comments (unrecognize d section and content) In the event this informatio n is protected by the Federal Confidentiality of Alcohol and Drug Abuse Patient Records regulations: The Federal rules restrict any use of the information to criminally investigate or prosecute any alcohol or drug abuse patient.[facility] CenterIn the event this information is protected by the Federal Confidentiality of Alcohol and Drug Abuse Patient Records regulations: The Federal rules restrict any use of the information to criminally investigate or prosecute any alcohol or drug abuse patient.[facility] CenterIn the event this information is protected by the Federal Confidentiality of Alcohol and Drug Abuse Patient Records regulations: The Federal rules restrict any use of the information to criminally investigate or prosecute any alcohol or drug abuse patient.[facility] CenterIn the event this information is protected by the Federal Confidentiality of Alcohol and Drug Abuse Patient Records regulations: The Federal rules restrict any use of the information to criminally investigate or prosecute any alcohol or drug abuse patient.[facility] CenterIn the event this information is protected by the Federal Confidentiality of Alcohol and Drug Abuse Patient Records regulations: The Federal rules restrict any use of the information to criminally investigate or prosecute any alcohol or drug abuse patient.[facility] CenterIn the event this information is protected by the Federal Confidentiality of Alcohol and Drug Abuse Patient Records regulations: The Federal rules restrict any use of the information to criminally investigate or prosecute any alcohol or drug abuse patient.[facility] CenterIn the event this information is protected by the Federal Confidentiality of Alcohol and Drug Abuse Patient Records regulations: The Federal rules restrict any use of the information to criminally investigate or prosecute any alcohol or drug abuse patient.[facility] CenterIn the event this information is protected by the Federal Confidentiality of Alcohol and Drug Abuse Patient Records regulations: The Federal rules restrict any use of the information to criminally investigate or prosecute any alcohol or drug abuse patient.[facility] CenterIn the event this information is protected by the Federal Confidentiality of Alcohol and Drug Abuse Patient Records regulations: The Federal rules restrict any use of the information to criminally investigate or prosecute any alcohol or drug abuse patient.[facility] CenterIn the event this information is protected by the Federal Confidentiality of Alcohol and Drug Abuse Patient Records regulations: The Federal rules restrict any use of the information to criminally investigate or prosecute any alcohol or drug abuse patient.[facility] CenterIn the event this information is protected by the Federal Confidentiality of Alcohol and Drug Abuse Patient Records regulations: The Federal rules restrict any use of the information to criminally investigate or prosecute any alcohol or drug abuse patient.[facility] CenterIn the event this information is protected by the Federal Confidentiality of Alcohol and Drug Abuse Patient Records regulations: The Federal rules restrict any use of the information to criminally investigate or prosecute any alcohol or drug abuse patient.[facility] CenterIn the event this information is protected by the Federal Confidentiality of Alcohol and Drug Abuse Patient Records regulations: The Federal rules restrict any use of the information to criminally investigate or prosecute any alcohol or drug abuse patient.[facility] CenterIn the event this information is protected by the Federal Confidentiality of Alcohol and Drug Abuse Patient Records regulations: The Federal rules restrict any use of the information to criminally investigate or prosecute any alcohol or drug abuse patient.[facility] CenterIn the event this information is protected by the Federal Confidentiality of Alcohol and Drug Abuse Patient Records regulations: The Federal rules restrict any use of the information to criminally investigate or prosecute any alcohol or drug abuse patient.[facility] CenterIn the event this information is protected by the Federal Confidentiality of Alcohol and Drug Abuse Patient Records regulations: The Federal rules restrict any use of the information to criminally investigate or prosecute any alcohol or drug abuse patient.[facility] CenterIn the event this information is protected by the Federal Confidentiality of Alcohol and Drug Abuse Patient Records regulations: The Federal rules restrict any use of the information to criminally investigate or prosecute any alcohol or drug abuse patient.[facility] CenterIn the event this information is protected by the Federal Confidentiality of Alcohol and Drug Abuse Patient Records regulations: The Federal rules restrict any use of the information to criminally investigate or prosecute any alcohol or drug abuse patient.[facility] CenterIn the event this information is protected by the Federal Confidentiality of Alcohol and Drug Abuse Patient Records regulations: The Federal rules restrict any use of the information to criminally investigate or prosecute any alcohol or drug abuse patient.[facility] CenterIn the event this information is protected by the Federal Confidentiality of Alcohol and Drug Abuse Patient Records regulations: The Federal rules restrict any use of the information to criminally investigate or prosecute any alcohol or drug abuse patient.[facility] CenterIn the event this information is protected by the Federal Confidentiality of Alcohol and Drug Abuse Patient Records regulations: The Federal rules restrict any use of the information to criminally investigate or prosecute any alcohol or drug abuse patient.[facility] CenterIn the event this information is protected by the Federal Confidentiality of Alcohol and Drug Abuse Patient Records regulations: The Federal rules restrict any use of the information to criminally investigate or prosecute any alcohol or drug abuse patient.[facility] CenterIn the event this information is protected by the Federal Confidentiality of Alcohol and Drug Abuse Patient Records regulations: The Federal rules restrict any use of the information to criminally investigate or prosecute any alcohol or drug abuse patient.[facility] CenterIn the event this information is protected by the Federal Confidentiality of Alcohol and Drug Abuse Patient Records regulations: The Federal rules restrict any use of the information to criminally investigate or prosecute any alcohol or drug abuse patient.[facility] CenterIn the event this information is protected by the Federal Confidentiality of Alcohol and Drug Abuse Patient Records regulations: The Federal rules restrict any use of the information to criminally investigate or prosecute any alcohol or drug abuse patient.[facility] CenterIn the event this information is protected by the Federal Confidentiality of Alcohol and Drug Abuse Patient Records regulations: The Federal rules restrict any use of the information to criminally investigate or prosecute any alcohol or drug abuse patient.[facility] CenterIn the event this information is protected by the Federal Confidentiality of Alcohol and Drug Abuse Patient Records regulations: The Federal rules restrict any use of the information to criminally investigate or prosecute any alcohol or drug abuse patient.[facility] CenterIn the event this information is protected by the Federal Confidentiality of Alcohol and Drug Abuse Patient Records regulations: The Federal rules restrict any use of the information to criminally investigate or prosecute any alcohol or drug abuse patient.[facility] CenterIn the event this information is protected by the Federal Confidentiality of Alcohol and Drug Abuse Patient Records regulations: The Federal rules restrict any use of the information to criminally investigate or prosecute any alcohol or drug abuse patient.[facility] CenterIn the event this information is protected by the Federal Confidentiality of Alcohol and Drug Abuse Patient Records regulations: The Federal rules restrict any use of the information to criminally investigate or prosecute any alcohol or drug abuse patient.[facility] CenterIn the event this information is protected by the Federal Confidentiality of Alcohol and Drug Abuse Patient Records regulations: The Federal rules restrict any use of the information to criminally investigate or prosecute any alcohol or drug abuse patient.[facility] CenterIn the event this information is protected by the Federal Confidentiality of Alcohol and Drug Abuse Patient Records regulations: The Federal rules restrict any use of the information to criminally investigate or prosecute any alcohol or drug abuse patient.[facility] CenterIn the event this information is protected by the Federal Confidentiality of Alcohol and Drug Abuse Patient Records regulations: The Federal rules restrict any use of the information to criminally investigate or prosecute any alcohol or drug abuse patient.[facility] CenterIn the event this information is protected by the Federal Confidentiality of Alcohol and Drug Abuse Patient Records regulations: The Federal rules restrict any use of the information to criminally investigate or prosecute any alcohol or drug abuse patient.[facility] CenterIn the event this information is protected by the Federal Confidentiality of Alcohol and Drug Abuse Patient Records regulations: The Federal rules restrict any use of the information to criminally investigate or prosecute any alcohol or drug abuse patient.[facility] CenterIn the event this information is protected by the Federal Confidentiality of Alcohol and Drug Abuse Patient Records regulations: The Federal rules restrict any use of the information to criminally investigate or prosecute any alcohol or drug abuse patient.[facility] CenterIn the event this information is protected by the Federal Confidentiality of Alcohol and Drug Abuse Patient Records regulations: The Federal rules restrict any use of the information to criminally investigate or prosecute any alcohol or drug abuse patient.[facility] CenterIn the event this information is protected by the Federal Confidentiality of Alcohol and Drug Abuse Patient Records regulations: The Federal rules restrict any use of the information to criminally investigate or prosecute any alcohol or drug abuse patient.[facility] CenterIn the event this information is protected by the Federal Confidentiality of Alcohol and Drug Abuse Patient Records regulations: The Federal rules restrict any use of the information to criminally investigate or prosecute any alcohol or drug abuse patient.[facility] CenterIn the event this information is protected by the Federal Confidentiality of Alcohol and Drug Abuse Patient Records regulations: The Federal rules restrict any use of the information to criminally investigate or prosecute any alcohol or drug abuse patient.[facility] CenterIn the event this information is protected by the Federal Confidentiality of Alcohol and Drug Abuse Patient Records regulations: The Federal rules restrict any use of the information to criminally investigate or prosecute any alcohol or drug abuse patient.[facility] CenterIn the event this information is protected by the Federal Confidentiality of Alcohol and Drug Abuse Patient Records regulations: The Federal rules restrict any use of the information to criminally investigate or prosecute any alcohol or drug abuse patient.[facility] CenterIn the event this information is protected by the Federal Confidentiality of Alcohol and Drug Abuse Patient Records regulations: The Federal rules restrict any use of the information to criminally investigate or prosecute any alcohol or drug abuse patient.[facility] CenterIn the event this information is protected by the Federal Confidentiality of Alcohol and Drug Abuse Patient Records regulations: The Federal rules restrict any use of the information to criminally investigate or prosecute any alcohol or drug abuse patient.[facility] Reason for Visit (unrecogniz ed [...] IVCON CT ABD & [place]EL[place] [address] [place] [address] [place] [address] Referral ID Status Reason Start Date Expiration Date V isits Requested Visits Authorized [id number] Closed Auto-Generate d Referral 05/27/2022 06/26/2023 1 [...] d we scheduled PT Eval 02/04 w/ Zhen Burgess PT. Reason Onset Date Comments Lab results 12/18/2023 Reason Comments Ankle Pain Reason Onset Date Comments Med Refill 02/20/2024 Reason Onset Date Comments Med Refill 03/06/2024 Reason Onset Date Comments Med Refill 03/07/2024 Reason Comments Gynecologic Exam Reason Onset Date Comments Med Refill 03/26/2024 Reason Onset Date Comments Med Refill 01/08/2024 Reason Comments shaking hands Reason Comments Weight Check Pt started this a mo nth ago Reason Comments Received Outside Medical Records [facility] Reason Comments Received Outside Medical Records [facility]io [facility]ance [facility] Reason Comments Back Pain Reason Comments Dyspareunia Reason Onset Date Comments Med Refill 04/19/2024 Reason Comments Recheck Reason Onset Date Comments Med Refill 04/30/2024 Reason Onset Date Comments Med Refill 04/30/2024 Reason Comments Patient Update 04/09/24 Echo Faxed Reason Comments Ankle Sprain Specialty Diagnoses / Procedures Referred By Norma kennedy Referred To Contact Podiatry Diagnoses Sprain of anterior talofibular ligament of right ankle, subsequent encounter Procedures [place] OFFICE/OUTPATIENT NEW HIGH MDM Giovani Hagen MD [address] [facility] [address] [place] [address] Phone: tel: fax: Prateek Pedraza, JASON [address] [facility] [address] [place] [address] Phone: tel: fax: Referral ID Status Reason Start Date Expiration Date V isits Requested Visits Authorized [id number] Closed Specialty Services Required 04/22/2024 10/19/2024 1 1 Reason Comments New Pain Swelling Reason Onset Date Comments Med Refill 05/08/2024 Reason Comments next steps Reason Comments Follow-up FU RT ankle- discuss surgery Reason Comments Pre-op Visit Pt present today for a pre operative visit. Pt is scheduled for a Goals (unrecognized section and content) Goals may [...] BE BASED ON THE PRIMARY CLINICAL RECORDS. [employer] provides no warranty or guarantee of the accuracy or completeness of information in this document.
[2024-05-23] MEDS: LACTATED RINGER'S SOLUTION 1,000 ML 50 ML IV (11:36)
[2024-05-23] MEDS: SCOPOLAMINE 1 MG/3 DAYS TRANSDERM PATCH 1 PATCH TD (11:56)
--- NOTE | 2024-05-23 13:31 | PM.ONB ---
Brief Operative Note Date of procedure: 05/23/24 Pre-op diagnosis general: pelvic pain Post-op diagnosis: same as pre-op Procedure: NAME OF PROCEDURE: [diagnostic laparoscopy ] PROCEDURE: The patient was taken back to the Operating Room where she was placed in dorsal lithotomy position after given general anesthesia. The patient was prepped and draped in normal sterile fashion. A sponge stick was placed into the patient's vagina. Attention was turned to the patient's abdomen, where a small umbilical incision was made. The fascia was tented using Harvey clamps and the fascia was entered sharply. Confirmation of intraabdominal placement of the 10 mm port was confirmed under direct visualization using a laparoscope. The patient's abdomen was then insufflated using CO2 gas with approximately 4 liters. A second port was placed left laterally, this was done under direct visualization with a 5 mm port. Survey of the patient's abdomen demonstrated normal liver and gallbladder. Survey of the patient's pelvic anatomy demonstrated normal appearing rt and lt ovary, absent tubes and uterus. No endometrial implants could be noted, no evidence of any pelvic disease was seen, normal appearing pelvic cavity. All instruments were removed from the patient's abdomen. The patient's abdomen was deinsufflated of CO2 gas. The patient tolerated the procedure well. Sponge stick was removed from the patient's vagina. The patient's infraumbilical fascia was closed using #0 Vicryl on a GI needle. The patient's skin was closed laterally and infraumbilically using 4-0 Vicryl. The patient tolerated the procedure well. Sponge, lap and needle counts were correct x 2. The patient was taken to Recovery Room in stable condition. Anesthesia: GETA Surgeon: Darwin Starr Merchandising Execution Manager: Maria Fernanda Kapadia Estimated blood loss (mL): 5 Pathology: none sent Condition: stable Disposition: PACU
[2024-05-23] MEDS: HYDROMORPHONE HCL 0.5 MG/0.5 ML SYRINGE IV ×2 (13:50→14:00)
[2024-05-23] MEDS: LACTATED RINGER'S SOLUTION 1,000 ML 150 ML IV ×2 (13:54→15:12)
[2024-05-23] MEDS: HYDROCODONE/ACET 5-325 MG TABLET 1 TAB PO (14:12)
--- NOTE | 2024-05-23 14:23 | PC.NURSE ---
1423: pt resting comfortably,no complaints at this time.
--- NOTE | 2024-05-23 16:11 | PC.NURSE ---
1608: pt ambulates to restroom with minimal assistance,pt voids without difficulty. urine clear,yellow.
== END 2024-05-23 16:14 | disposition home or self-care (01) ==
PROVIDERS: PCP Family Medicine; Visit Provider Obstetrics & Gynecology
PROC: (CPT 840; principal; 2024-05-23 12:00)
DX: R10.2 Pelvic and perineal pain (principal); N80.8 Other endometriosis; Z87.42 Personal history of other diseases of the female genital tract; Z90.710 Acquired absence of both cervix and uterus; Z87.891 Personal history of nicotine dependence; Z90.49 Acquired absence of other specified parts of digestive tract; J45.909 Unspecified asthma, uncomplicated; K21.9 Gastro-esophageal reflux disease without esophagitis
CPT/HCPCS: 49320; 36415; 85025; J1100; J1171; J1885; J2250; J2405; J2704; J3010

== ENCOUNTER 2024-05-27 15:50 | Outpatient (OUT) | payer OTHER, SELFPAY ==
--- OUTSIDE RECORDS SUMMARY | 2024-05-27 16:12 | XMS_ITS | CCD ---
Author Organization [facility] Care Team Providers Care Rope Walker Name Role Phone OZIEL MONTEIRO Referring Unavailable GIOVANI HAGEN Primary Care Unavailable MD Erwin Hylton Attending Provider MD Giovani Hagen Primary Care Provider Giovani Hagen Primary Care Provider Erwin Hylton Unavailable GIOVANI HAGEN Primary Care Physician KARASIK ., DR SIMON Consulting Unavailabl e [...] HIEU, DR MATUTE Attending Unavailable HIEU, DR MATTUE Admitting Unavailable ZIEBER, DR LAURIE Kendrick Consulting [...] Consulting Unavailable MD Erwin Hylton Attending Provider [phone] MD Giovani Hagen Primary Care Provider [phone] Asaad, Imad Admitting Unavailable Asaad, Imad Attending Unavailable [place] Asaad, Imad Admitting Unavailable Asaad, Imad Attending Unavailable [facility] Unavailable Giovani Hagen MD Primary Care Provider BLOODMARY Admitting Unavailable BLOOD, MARY Culver Attending Unavailable JACKSON MONTENEGRO Consulting Unavailable SONIYA PATEL Referring Unavailable HIEUGIOVANI Mcclellan Primary Care Unavailable MAKENNA AMAYA Consulting Unavailable Giovani Hagen MD Primary Care Provider [phone] Madhuri MISHRA Attending Unavailable BHAVESH DEJESUS Attending Unavailable Giovani Hagen MD Unavailable Giovani Hagen MD Primary Care Provider Deena Lyn CNP Unavailable [phone] SOLO MORA Referring Unavailable HIEU, RUGEN MABALAY Primary Care Unavailable YAPATRICIARO, ILIANA Referring Unavailable HIEU, RUGEN MABALAY Primary Care Unavailable MILTON FRAIRE Attending Unavailable MILTON FRAIRE Referring Unavailable CADE [...] Referring Unavailable HIEU, RUGEN M Attending Unavailable HIEU, RUGEN MABALAY Primary Care Unavailable Phoenix Mercadoen Referring Unavailable PONCHO MORAL Attending Unavailable HIEU, RUGEN MABALAY Primary Care Unavailable HIEU, RUGEN MABALAY Primary Care Unavailable Radharo Iliana Referring Unavailable OBED BHATT Attending Unavailable LYDIA KELLEY Attending Unavailab le HIEU, RUGEN MABALAY Primary Care Unavailable HIEU, RUGEN MABALAY Primary Care Unavailable HIEU, RUGEN MABALAY Primary Care Unavailable KOCHAR, ARSHNEEL Referring Unavailable HIEU, RUGEN MABALAY Primary Care Unavailable Phoenix Mercadoen Attending Unavailable Allergies Allergy Classification Reported Allergen(s) Allergy Type Date of Onset Reaction(s) Facility Iodine (and Iodine containting drugs) (2 sources) Iodine Drug Allergy 04-11-20 Swelling, Itching [facility] Iohexol (2 sources) Iohexol Drug Allergy 04-12-20 Itching [facility] (20 sources) Iodine; Translations: [IODINE] Drug Allergy 04-11-20 Swelling, Itching [facility] (20 sources) Iohexol; Translations: [IOHEXOL] Drug Allergy 04-12-20 Itching [facility] (1 source) Cat Propensity to adverse reactions anaphylaxis [facility] [employer] Other (1 source) tree nut, unspecified Propensity to adverse reactions anaphylaxis [facility] [employer] Other (1 source) peanut allergenic extract Drug Allergy [facility] Repository (1 source) Cat/Feline Product Derivatives Drug allergy (disorder) 01-08-20 13 [facility] Repository (1 source) No Known Medication Allergies; Translations: [No Known Medication Allergies] Propensity to adverse reactions (disorder) [facility] Repository (20 sources) Cat Hair Extract Allergy to substance 12-01-19 23 Anaphylaxis [facility] (20 sources) Iodinated Contrast Media Drug Allergy 12-01-19 23 Hives [facility] (20 sources) Prednisone & Diphenhydramine Drug Allergy 10-03-19 24 [facility] Medications Current Medications Medication Drug Class(es) [...] every six hours for pain HYDROcodone-acetami nophen (Ramer) 5-325 MG tablet Indications: Cervical radiculopathy due to degenerative joint disease of spine Take 1 tablet by mouth every 6 (six) hours if needed for severe pain for up to 5 days 20 tablet 05/09/2024 05/14/2024 Active Start: 04-16-2024 End: 12-29-2024 take 1 tablet by mouth every six hours for pain HYDROcodone-acetaminophen (Ramer) 5-325 MG tablet Indications: Sprain of anterior [...] capsules by mouth at bedtime Bis Subcit Gme-Ikgqf-Negaleyt (PYLERA) 140-125-125 mg per capsule Take 3 [...] Start: 05-01-2019 take [address] [facility] once daily Vraylar 1.5 mg oral capsule 1.5 mg = 1 cap(s), Oral, Daily Start Date: 05/01/19 Status: Ordered take [address] [facility] once daily cariprazine (VRAYLAR) 3 mg cap Take by mouth once daily. 0 Active Vraylar Active Comment on above: Take by mouth once d aily. 1 capsule. cefuroxime 500 mg oral tablet (5 sources) Cephalosporin Antibacterial Start: 4 End: 5 take 1 tablet by mouth in the [...] UTI, # 20 cap(s), Refills(s) 2, [id number], cm, 12/28/23 15:24:00 EDT, Height/Length [...] days., # 50 cap(s), Refills(s) 0, [id number] 158, cm, 06/29/22 8:19:00 EST, Height/Length [...] take 1 puff(s) by inhalation once daily Fjesptwoeym-Gwrzntnsr-Subefb 100-62.5-25 MCG/ACT aerosol powder INHALE 1 PUFF INTO THE LUNGS EVERY DAY FOR 30 DAYS 05/24/2022 Active Start: 05-24-2022 End: 11-02-2022 TRELEGY ELLIPTA 100-62.5-25 mcg inhalation powder 05/24/2022 11/02/2022 Discontinued fluticasone/umeclidin/vilant er (TRELEGY ELLIPTA INHALATION) (3 sources) fluticasone/umec lidin/vilanter (TRELEGY ELLIPTA INHALATION) Inhale as instructed. Active ibuprofen 800 mg oral tablet (2 sources) Nonsteroidal Anti-inflamma tory Drug S t a r t : 0 2 - 1 9 - 2 0 1 9 take 800 mg by mouth once daily as needed for pain ibuprofen 800 mg, Oral, Daily, PRN as needed for pain, Refills(s) 0 Start Date: 06/12/18 Status: Ordered montelukast 10 mg oral table t (20 sources) Leukotriene Receptor Antagonist S t a r t : 1 2 - 0 9 - 2 0 2 4 E n d : 1 2 - 0 9 - 2 0 2 5 take 1 tablet by mouth at bedtime montelukast (Singulair) 10 MG tablet Indications: Mild intermittent asthma without complication (CMS/HCC) Take 1 tablet (10 mg) by mouth at bedtime 30 tablet 11 04/01/2024 04/01/2025 Active phentermine hydrochloride 37 .5 mg oral tablet (20 sources) Sympathomimet ic Amine Anorectic S t a r t : 0 8 - 1 2 - 2 0 2 4 E n d : 0 2 - 0 6 - 2 0 2 5 take 1 tablet by mouth before mealtime phentermine (Adipex-P) 37.5 MG tablet Indications: Obesity (BMI 35.0-39.9 without comorbidity) Take 1 tablet (37.5 mg) by mouth in the morning. Take before meals. 30 tablet 04/30/2024 05/30/2024 Active traMADol hydrochloride 50 mg oral tablet (8 sources) Opioid Agonist S t a r t : 1 2 - 0 4 - 2 0 2 4 E n d : 1 2 - 0 9 - 2 0 2 4 take 2 tablets by mouth every six hours for pain traMADol (Ultram) 50 MG tablet Indications: Acute right ankle pain Take 2 tablets (100 mg) by mouth every 6 (six) hours if needed for severe pain for up to 5 days 40 tablet 03/27/2024 04/01/2024 Active Start: 06-29-2022 tramadol Oral Start Date: 06/29/22 Status: Ordered vancomycin 125 mg oral capsule (2 sources) Glycopeptide Antibacterial Start: 05-23-2024 End: 06-06-2024 take 1 capsule by mouth four times daily vancomycin (VANCOCIN) 125 mg capsule Take 1 capsule by mouth four times daily for 14 days. 56 capsule 05/23/2024 06/06/2024 Active Completed/Discontinued Medications Medication Drug Class(es) Dates Sig [...] 03/20/2024 04/18/2024 Discontinued (Therapy completed) estrogens, conjugated ([facility]) 0.625 mg/ml vaginal cream (20 sources) Estrogen [...] Discontinued (Other) take [address] [facility] every twenty-four hours Vyvanse 50 MG [...] above: TAKE 1 CAPSULE BY [facility] EVERY DAY IN THE MORNING FOR [...] angina pectoris; Translations: [Atherosclerotic heart disease of [place] coronary artery without angina pectoris] Onset: 2 [...] hemorrhage or perforation] 08-31-2022 Chronic Gastrointestinal hemorrhage (3 sources) Gastrointestinal hemorrhage; Translations: [Hemorrhage of anus [...] of breath] Episodic Other lower respiratory disease (20 sources) Snoring; Translations: [Snoring] Onset: 4 04-16-2024 [...] Test Name Value Interpretation Reference Range Facility ALL CBC WITH AUTO DIFFon BASOPHILS ABSOLUTE AUTO 0 [facility] Basophils/100 WBC (Bld) 0.4 % 0.2 - 2.0 % [facility] Eosinophils/100 WBC (Bld) 4.4 % 0.9 - 7.0 % [facility] Erythrocyte distribution width (RBC) [Ratio] 13.2 % 11.0 - 15.0 % [facility] Hematocrit (Bld) [Volume fraction] 41.6 % 36.0 - 48.0 % [facility] Hemoglobin (Bld) [Mass/Vol] 14 g/dL 12.0 - 16.0 g/dL [facility] IMMATURE GRANULOCYTES ABS AUTO 0.13 High [facility] Immature granulocytes/100 WBC (Bld) 1.6 % High 0.0 - 0.5 % [facility] Interpretation and review of laboratory results Abnormal [facility] LYMPHOCYTES ABSOLUTE AUTO 2.7 [facility] Lymphocytes/100 WBC (Bld) 33.8 % 20.5 - 60.0 % [facility] MCH (RBC) [Entitic mass] 32.6 pg 26.7 - 34.0 pg [facility] MCHC (RBC) [Mass/Vol] 33.7 g/dL 29.9 - 35.2 g/dL [facility] MCV (RBC) [Entitic vol] 96.7 fL 81.0 - 99.0 fL [facility] MONOCYTES ABSOLUTE AUTO 0.5 [facility] Monocytes/100 WBC (Bld) 5.9 % 1.7 - 12.0 % [facility] NEUTROPHILS ABSOLUTE AUTO 4.4 [facility] Neutrophils/100 WBC (Bld) 53.9 % 43.0 - 75.0 % [facility] Platelet mean volume (Bld) [Entitic vol] 10.4 fL 9.5 - 13.5 fL [facility] EO # 0.4 [facility] PLT 257 [facility] RBC 4.3 [facility] WBC 8.1 [facility] C. difficile toxin genes SHEILA +probe Ql (Stl)on 05-23-2024 Interpretation and review of laboratory results Abnormal [facility] CLOSTRIDIUM DIFFICILE TOXIN BY PCRon 05-23-2024 C. difficile toxin genes SHEILA+probe Ql (Stl) Positive Abnormal Negative for C. difficile toxin by PCR [facility] Comment on above: A positive PCR resul t may indicate C.difficile infection or colonization. The positive predictive value of this test for C.difficile infection is highest for patients with clinically significant diarrhea (>=3 unformed stools in 24h) who do not have an alternative explanation (e.g., recent receipt of laxatives). Toxin EIA testing will also be performed as recommended by IDSA clinical practice guidelines for institutions without pre-agreed criteria for specimen submission. [place] 05-23-2024 HUYEN Telephone (TANI) ORION HARPER ([id number]) 1990 F Date Time Provider Department 05/23/24 ILIANA MERCADO During your visit today, we recorded the following information about you: Benito Soriano, JW 05/23/2024 3:25 PM Signed ----- Message from Iliana Mercado PA-C sent at 05/23/2024 3:18 PM EST ----- Please provide information on precautions and information regarding Cdiff. Thank you Iliana Mercado PA-C ----- Message ----- From: Carol Winn MD Sent: 05/23/2024 2:44 PM EST To: Iliana Yacapraro, PA-C Hi Milly, your stool is positive for C.diff I sent a script for vancomycin to take for 2 weeks. A script is sent Iliana, patient had Diarrhea for 2-3 weeks. Had bronchitis prior to that and was given steroids and antibiotics. Stool sample was collected during the colonoscopy Please Iliana send the patient information about c.diff and precautions to follow Carol Winn MD Allergies As of Date: 05/23/2024 Noted Allergy Reaction IV CONTRAST (IODINE) 04/11/2019 7 - Swelling 9 - Itching Comments: Omnipaque 300: Patient experienced itching on her neck and left side of her face. Also, pt complained of tongue feeling itchy and feels like something is stuck in her throat . Patient received diphenhydramine (Benadryl) OMNIPAQUE (IOHEXOL) 04/12/2019 9 - Itching Date Reviewed: 05/22/2024 Reviewed by: Oziel Darnell RN - Fully Assessed Reason for Visit: Results [95] Cmt: C diff Prescriptions as of 05/24/2024 - vancomycin (VANCOCIN) 125 mg capsule Take 1 capsule by mouth four times daily for 14 days. - montelukast (SINGULAIR) 10 mg tablet Take 10 mg by mouth daily at bedtime. - fluticasone/umeclidin /vilanter (TRELEGY ELLIPTA INHALATION) Inhale as instructed. - escitalopram oxalate (LEXAPRO) 20 mg tablet Take 20 mg by mouth every morning. - amphetamine-dextroamp hetamine XR (ADDERALL XR) 30 mg capsule Take 30 mg by mouth once daily. - ALPRAZolam (XANAX) 0.5 mg tablet Take 0.25 mg by mouth two times a day. - cariprazine (VRAYLAR) 4.5 mg capsule Take 4.5 mg by mouth once daily. Problem List As Of Date 05/23/2024 Noted Resolved Gastroparesis [K31.84] 11/02/2022 Encounter Status:Closed by BENITO SORIANO on 05/24/24 [facility] ANES POSTPROC EVALon 025 ANES POSTPROC EVAL HNO ID: [id number] Author: OBED BHATT APRN.JUNIOR STAFF ACCOUNTANT Service: Anesthesiology Author Type: Nurse Railroad Shop Inspector Type: Anesthesia Postprocedure Evaluation Filed: 05/22/2024 14:22 Note Text: POST ANESTHESIA EVALUATION NOTE : 1990 Procedure Summary Date: 05/22/24 Room / Location: Ambulatory Surgery Anesthesia Start: 134 Anesthesia Stop: 1422 Procedure: COLONOSCOPY DIAGNOSTIC Diagnosis: BRBPR (bright red blood per rectum) (Rectal bleeding) Scheduled Providers: Carol Winn MD; Obed Bhatt APRN.CRNA; Millicent Schmitz RN Responsible Provider: Obed Bhatt APRN.CRNA Anesthesia Type: MAC ASA Status: 2 Anesthesia Type: No value filed. Last Vitals Vitals Value Taken Time BP 129/81 05/22/24 1415 Temp 05/22/24 1422 Pulse 97 05/22/24 1420 Resp 14 05/22/24 1420 SpO2 98 % 05/22/24 1420 Vitals shown include unfiled device data. Post Anesthesia Patient Status Patient Evaluation: bedside. Anticipated Disposition: phase 2 then home. Neurological Status: aware and responsive. Pulmonary Status: breathing comfortably on room air Airway Control: returned to baseline unsupported. Cardiovascular Status: stable. Pain Management: clinically adequate Postoperative Hydration: acceptable. Intraoperative Events: no significant anesthesia events Post Operative Nausea/Vomiting Status: no significant post operative nausea or vomiting Recommendation: continue current plan of care. Anesthesia Observations No Documentation SIGNATURE: Obed Bhatt APRN.CRNA PATIENT NAME: Orion Harper DATE: May 22, 2024 TIME: 2:22 PM CSN: [id number] Normal [facility] ANES PRE-OPon 05-22-2024 ANES PRE-OP HNO ID: [id number] Author: OBED BHATT APRN.CRNA Service: Anesthesiology Author Type: Nurse Railroad Shop Inspector Type: Anesthesia Preprocedure Evaluation Filed: 05/22/2024 14:23 Note Text: ANESTHESIOLOGY DAY OF SURGERY NOTE : 1990 Procedure Information Anesthesia Start Date/Time: 05/22/24 1345 Scheduled providers: Carol Winn MD; Obed Bhatt APRN.CRNA; Millicent Schmitz RN Procedure: COLONOSCOPY DIAGNOSTIC Location: Ambulatory Surgery Estimated body mass index is 33.84 kg/m? as calculated from the following: Height as of this encounter: 157.5 cm (5' 2 ). Weight as of this encounter: 83.9 kg (185 lb). Most recent hematocrit and potassium results: Hematocrit 46.1 04/26/2024 Potassium 4.0 04/26/2024 Relevant Problems No relevant active problems I - PHYSICAL EVALUATION AIRWAY Patient intubated: No. Tracheostomy tube not present TM distance: >3 FB. Neck ROM: full ROM without neurological symptoms. Mouth opening: adequate. Short neck: no. Thick neck: no DENTAL Dental findings: teeth intact. Additional exam findings: yes. CARDIOVASCULAR Normal cardiovascular observations. PULMONARY Normal pulmonary observations. II - ANESTHESIA PLAN ASA Score: 2 Anesthetic Plan: MAC The patient is a current smoker. NPO Status: adequate Beta Taylor Administration of chronic beta taylor medication not planned. Monitoring Plan Monitoring plan: standard ASA. Post Procedure Analgesic Plan Postoperative analgesic plan: per surgical service. Informed Consent Anesthetic risks, benefits, alternatives, personnel and consent discussed: yes. Patient / Responsible Green Party agrees to proceed: yes Patient / Surrogate agrees to blood products: blood products not planned DNR status not reviewed with patient and/or family prior to surgery. Significant changes in the patient condition since the History and Physical, not otherwise documented in primary service progress note: no. Potential Anesthesia issues that may suggest increased risk of complications or contraindication to planned procedure: none. Vitals Value Taken Time BP 134/95 05/22/24 1340 Pulse 108 05/22/24 1345 Resp 21 05/22/24 1345 Temp SpO2 97 % 05/22/24 1345 Outpatient Medications as of 05/22/2024 Medication Sig Phentermine HCl 37.5 mg tablet Take 37.5 mg by mouth. escitalopram oxalate (LEXAPRO) 20 mg tablet Take 20 mg by mouth every morning. amphetamine-dextroamp hetamine XR (ADDERALL XR) 30 mg capsule Take 30 mg by mouth once daily. ALPRAZolam (XANAX) 0.5 mg tablet Take 0.25 mg by mouth two times a day. cariprazine (VRAYLAR) 4.5 mg capsule Take 4.5 mg by mouth once daily. montelukast (SINGULAIR) 10 mg tablet Take 10 mg by mouth daily at bedtime. No current facility-administered medications on file as of 05/22/2024. I have interviewed and examined the patient. I have reviewed the medical record and/or the pre-anesthesia evaluation, pertinent labs, and test results. This contains updated information obtained within 48 hours of Surgery/Procedure. SIGNATURE: Obed Bhatt APRN.CRNA PATIENT NAME: Orion Harper DATE: May 22, 2024 TIME: 2:22 PM CSN: [id number] Normal [facility] PRE-OP HNO ID: [id number] Author: OBED BHATT APRN.CRNA Service: Anesthesiology Author Type: Nurse Railroad Shop Inspector Type: Anesthesia Preprocedure Evaluation Filed: 05/22/2024 14:21 Note Text: ANESTHESIOLOGY DAY OF SURGERY NOTE : 1990 Procedure Information Anesthesia Start Date/Time: 05/22/24 1345 Scheduled providers: Carol Winn MD; Obed Bhatt APRN.CRNA; Millicent Schmitz RN Procedure: COLONOSCOPY DIAGNOSTIC Location: Ambulatory Surgery Estimated body mass index is 33.84 kg/m? as calculated from the following: Height as of this encounter: 157.5 cm (5' 2 ). Weight as of this encounter: 83.9 kg (185 lb). Most recent hematocrit and potassium results: Hematocrit 46.1 04/26/2024 Potassium 4.0 04/26/2024 Relevant Problems (+) ENGLISH (+) Vapes (+) Asthma I - PHYSICAL EVALUATION AIRWAY Patient intubated: No. Tracheostomy tube not present Mallampati: III. TM distance: >3 FB. Neck ROM: full ROM without neurological symptoms. Mouth opening: adequate. Short neck: no. Thick neck: yes DENTAL Dental findings: teeth intact. Additional exam findings: yes. CARDIOVASCULAR Normal cardiovascular observations. PULMONARY Normal pulmonary observations. II - ANESTHESIA PLAN ASA Score: 2 Anesthetic Plan: MAC The patient is not a current smoker. NPO Status: adequate Beta Taylor Administration of chronic beta taylor medication not planned. Monitoring Plan Monitoring plan: standard ASA. Post Procedure Analgesic Plan Postoperative analgesic plan: per surgical service. Informed Consent Anesthetic risks, benefits, alternatives, personnel and consent discussed: yes. Patient / Responsible Green Party agrees to proceed: yes Patient / Surrogate agrees to blood products: blood products not planned DNR status not reviewed with patient and/or family prior to surgery. Significant changes in the patient condition since the History and Physical, not otherwise documented in primary service progress note: no. Potential Anesthesia issues that may suggest increased risk of complications or contraindication to planned procedure: none. Vitals Value Taken Time BP 134/95 05/22/24 1340 Pulse 108 05/22/24 1345 Resp 21 05/22/24 1345 Temp SpO2 97 % 05/22/24 1345 Outpatient Medications as of 05/22/2024 Medication Sig Phentermine HCl 37.5 mg tablet Take 37.5 mg by mouth. escitalopram oxalate (LEXAPRO) 20 mg tablet Take 20 mg by mouth every morning. amphetamine-dextroamp hetamine XR (ADDERALL XR) 30 mg capsule Take 30 mg by mouth once daily. ALPRAZolam (XANAX) 0.5 mg tablet Take 0.25 mg by mouth two times a day. cariprazine (VRAYLAR) 4.5 mg capsule Take 4.5 mg by mouth once daily. montelukast (SINGULAIR) 10 mg tablet Take 10 mg by mouth daily at bedtime. Facility-Administered Medications as of 05/22/2024 Medication Dose Route Frequency NaCl 0.9% iv infusion INTRAVENOUS X (ONE-STEP ONLY) CONTINUOUS PRN lidocaine HCl (PF) 20 mg/mL (2 %) injection INTRAVENOUS PRN propofol infusion (DIPRIVAN) INTRAVENOUS X (ONE-STEP ONLY) CONTINUOUS PRN propofol injection (DIPRIVAN) INTRAVENOUS PRN ondansetron (PF) injection (ZOFRAN) INTRAVENOUS PRN I have interviewed and examined the patient. I have reviewed the medical record and/or the pre-anesthesia evaluation, pertinent labs, and test results. This contains updated information obtained within 48 hours of Surgery/Procedure. SIGNATURE: Obed Bhatt APRN.JUNIOR STAFF ACCOUNTANT PATIENT NAME: Orion Harper DATE: May 22, 2024 TIME: 2:18 PM CSN: [id number] Normal [facility] C diff Tox gens Stl Ql SHEILA+p robeon 05-22-2024 C. difficile toxin genes SHEILA+probe Ql (Stl) Positive Abnormal Negative for C. difficile toxin by PCR [facility] Comment on above: Order Comment: Speci men Type: STOOL SPECIMENOrdering Facility: [facility] Address: [address] [place] [address] Result Comment: A po sitive PCR result may indicate C.difficile infection or colonization. The positive predictive value of this test for C.difficile infection is highest for patients with clinically significant diarrhea (>=3 unformed stools in 24h) who do not have an alternative explanation (e.g., recent receipt of laxatives). Toxin EIA testing will also be performed as recommended by IDSA clinical practice guidelines for institutions without pre-agreed criteria for specimen submission. Performed By: #### 5 4067-4, CDEIA ####[facility] LABCL[facility] [id number] [address] [place] CLOSTRIDIUM DIFFICILE TOXIN BY EIAon 05-22-2024 C. difficile toxin A+B IA Ql (Stl) Not detected Normal Negative for C. difficile toxin [facility] Comment on above: Order Comment: Speci men Type: STOOL SPECIMENOrdering Facility: [facility] Address: [address] [place] [address] Result Comment: Toxi n EIA is less sensitive than cell cytotoxin and PCR assays. Clinical correlation of PCR positive/toxin EIA negative results is required to distinguish C. difficle colonization from disease. Performed By: #### 5 4067-4, CDEIA ####[facility] LABCLIA [id number] [place] [address] [place] COLONOSCOPYon 05-22-2024 [facility] Gastroenterology Gastrointestinal Endoscopy Patient Name: Orion Harper Procedure Date: 05/22/2024 1:40 PM Date of : 1990 Admit Type: Outpatient Age: 33 Room: [facility] 2 Gender: Female Note Status: Finalized Attending MD: Carol Winn MD, [id number] Procedure: Colonoscopy Indications: Rectal bleeding, Change in bowel habits, Diarrhea for 2-3 weeks. Had bronchitis prior to that and was given steroids and antibiotics Providers: Carol Winn MD Patient Profile: This is a 33 [...] verified by the physician, the nurse, the primer powder blender wet and the gem technician in the procedure room. Mental Status [...] bowel preparation was evaluated using the BBPS ([place] Bowel Preparation Scale) with scores of: Right [...] (more content not included)... [facility], Radiologist, - 05/22/2024 [facility] Gastroenterology Gastrointestinal Endoscopy Patient Name: Orion Harper Procedure Date: 05/22/2024 1:40 PM Date of : 1990 Admit Type: Outpatient Age: 33 Room: [facility] 2 Gender: Female Note Status: Finalized Attending MD: Carol Winn MD, [id number] Procedure: Colonoscopy Indications: Rectal bleeding, Change in bowel habits, Diarrhea for 2-3 weeks. Had bronchitis prior to that and was given steroids and antibiotics Providers: Carol Winn MD Patient Profile: This is a 33 [...] verified by the physician, the nurse, the primer powder blender wet and the gem technician in the procedure room. Mental Status [...] bowel preparation was evaluated using the BBPS (Wildwood Bowel Preparation Scale) with scores of: Right [...] once a da (more content not included)... [facility] [employer] COLONOSCOPYOrdered By: Radio logist Radiology on 05-22-2024 [facility] [employer] Work Phone: Colonoscopyon 05-22-2024 Colonoscopy [facility] Gastroenterology Gastrointestinal Endoscopy Patient Name: Orion Harper Procedure Date: 05/22/2024 1:40 PM Date of : 1990 Admit Type: Outpatient Age: 33 Room: [place] [address] Gender: Female Note Status: Finalized Attending MD: Carol Winn MD, [id number] Procedure: Colonoscopy Indications: Rectal bleeding, Change in bowel habits, Diarrhea for 2-3 weeks. Had bronchitis prior to that and was given steroids and antibiotics Providers: Carol Winn MD Patient Profile: This is a 33 [...] verified by the physician, the nurse, the primer powder blender wet and the gem technician in the procedure room. Mental Status [...] bowel preparation was evaluated using the BBPS (Wildwood Bowel Preparation Scale) with scores of: Right [...] mouth once a day - Return to GI office as previously scheduled. - Discharge patient to home (ambulatory). Procedu (more content not included)... Normal [facility] Flexible sigmoidoscopy study on 05-22-2024 [facility] Gastroenterology Gastrointestinal Endoscopy Patient Name: Orion Harper Procedure Date: 05/22/2024 1:40 PM Date of : 1990 Admit Type: Outpatient Age: 33 Room: [facility] 2 Gender: Female Note Status: Finalized Attending MD: Carol Winn MD, [id number] Procedure: Colonoscopy Indications: Rectal bleeding, Change in bowel habits, Diarrhea for 2-3 weeks. Had bronchitis prior to that and was given steroids and antibiotics Providers: Carol Winn MD Patient Profile: This is a 33 [...] verified by the physician, the nurse, the primer powder blender wet and the gem technician in the procedure room. Mental Status [...] bowel preparation was evaluated using the BBPS (Wildwood Bowel Preparation Scale) with scores of: Right [...] rectum were ph (more content not included)... [facility] Gastrointestinal pathogens i dentified SHEILA+probe Nom (Stl)on 05-22-2024 Campylobacter sp DNA SHEILA+probe Nom (Unsp spec) Not detected Normal Not Detected [facility] Comment on above: Order Comment: Speci men Type: STOOL SPECIMENOrdering Facility: [facility] Address: [address] [place] [address] Performed By: #### 7 9390-1 ####[facility] LABIA [id number] [place] [address] [place] Salmonella sp DNA SHEILA+probe Ql (Unsp spec) Not detected Normal Not Detected [facility] Comment on above: Order Comment: Dionicioi chetna Type: STOOL SPECIMENOrdering Facility: [facility] Address: [address] [place] [address] Performed By: #### 7 9390-1 ####[facility] LABCLIA [id number] [place] [address] [place] Shiga toxin stx gene SHEILA+probe Nom (Unsp spec) Not detected Normal Not Detected [facility] Comment on above: Order Comment: Speci men Type: STOOL SPECIMENOrdering Facility: [facility] Address: [address] [place] [address] Performed By: #### 7 9390-1 ####[facility] LABCLIA [id number] [place] [address] [place] [facility] Shigella sp DNA SHEILA+probe Ql (Unsp spec) Not detected Normal Not Detected [facility] Comment on above: Order Comment: Speci men Type: STOOL SPECIMENOrdering Facility: [facility] Address: [address] [place] [address] [place] [address] Performed By: #### 7 9390-1 ####[facility] LABCLIA [id number] [address] [address] [place] HISTORY PHYSICALon HISTORY PHYSICAL HNO ID: [id number] Author: CAROL WINN MD Service: Gastroenterology Author Type: Physician Type: H&P Filed: 05/22/2024 13:44 Note Text: SEDATION HISTORY AND PHYSICAL EXAM SERVICE DATE: 05/22/2024 SERVICE TIME: 1:39 PM Subjective HPI: This is a 33 year old female who presents with rectal bleeding PAST ANESTHESIA HISTORY: No history of adverse event PAST MEDICAL HISTORY Diagnosis Date Asthma Bipolar disorder (HCC) Diverticulitis 2018 Hypertension IBS (irritable bowel syndrome) PAST SURGICAL HISTORY Procedure Laterality Date SECTION HX COLONOSCOPY 04/2018 IBS-c COLONOSCOPY SCREENING 2020 EGD DIAGNOSTIC 2022 HYSTEROSCOPY, DIAGNOSTIC (SEPARATE Prior to Admission medications as of 05/22/24 1338 Medication Sig Last Dose Taking Phentermine HCl 37.5 mg tablet Take 37.5 mg by mouth. 05/21/2024 at 0700 Yes escitalopram oxalate (LEXAPRO) 20 mg tablet Take 20 mg by mouth every morning. 05/22/2024 at 0800 Yes amphetamine-dextroamp hetamine XR (ADDERALL XR) 30 mg capsule Take 30 mg by mouth once daily. 05/21/2024 at 0800 Yes ALPRAZolam (XANAX) 0.5 mg tablet Take 0.25 mg by mouth two times a day. 05/21/2024 at 2100 Yes cariprazine (VRAYLAR) 4.5 mg capsule Take 4.5 mg by mouth once daily. 05/21/2024 at 2100 Yes montelukast (SINGULAIR) 10 mg tablet Take 10 mg by mouth daily at bedtime. fluticasone/umeclidin /vilanter (TRELEGY ELLIPTA INHALATION) Inhale as instructed. ALLERGIES Allergen Reactions Iv Contrast [Iodine] Swelling, [...] Regular rhythm,Regular rate Assessment/Plan ASA Class: ASA Class: Patient with mild systemic disease Active Problems: Rectal bleeding Provisional Diagnosis/Treatment Plan: Colonoscopy Procedure was discussed with the patient including risks of oversedation, bleeding, and perforation. Patient agreed to proceed. Sedation Goal: Anesthesia SIGNATURE: Carol Winn MD PATIENT NAME: Orion Harper DATE: May 22, 2024 TIME: 1:39 PM Normal [facility] NURSING PROGon 05-22-2024 NURSING PROG HNO ID: [id number] Author: LINDSEY BUCKLEY RN Service: ? Author Type: Registered Nurse Type: Nursing Progress Note Filed: 05/22/2024 13:42 Note Text: PRE OP LEARNING ASSESSMENT PROCEDURE/SURGERY: GI PROCEDURES: Colonoscopy READINESS TO LEARN COGNITIVE ABILITY: Alert and oriented MOTIVATION TO LEARN: Eager Interested FAMILY SUPPORT: High - Very involved in pt care PATIENT LEARNS BEST BY: Individual Instruction Verbal Instruction FACTORS AFFECTING LEARNING: None PHYSICAL LIMITATIONS AFFECTING LEARNING: None Electronically Signed By: Lindsey Buckley RN In Department: AMBULATORY SURGERY Normal [facility] No Panel Informationon 05-22 Radiology Study observation (narrative) [facility] SURGICAL PATHOLOGYon 025 CASE REPORT Normal [facility] Comment on above: Order Comment: Speci men Type: TISSUE SPECIMENOrdering Facility: [facility] Address: [address] [place] [address] Result Comment: Surg ica Pathology Report Case: [id number] Authorizing Provider: Carol Winn MD Collected: 05/22/2024 02:05 PM Ordering Location: Ambulatory Surgery Received: 05/22/2024 08:39 PM Pathologist: Fe Barnes MD Specimens: A) - Colon, Right, Biopsy, r/o microscopic colitis, r/o inflammation B) - Colon, Left, Biopsy, r/o microscopic colitis, r/o inflammation Performed By: #### S ####[facility] LABCLIA [id number] [address] [place] FINAL DIAGNOSIS Normal [facility] Comment on above: Order Comment: Speci men Type: TISSUE SPECIMENOrdering Facility: [facility] Address: [address] [place] [address] Result Comment: A. C olon, right, biopsy: - Colonic mucosa with no significant pathologic change. B. Colon, left, biopsy: - Colonic mucosa with no significant pathologic change. Performed By: #### S ####[facility] LABCLIA [id number] [address] FINAL PERFORMING LAB Normal [facility] Comment on above: Order Comment: Speci men Type: TISSUE SPECIMENOrdering Facility: [facility] Address: [address] [place] [address] Result Comment: Diag nostic interpretation performed at: [facility], [address] [place] [address] CLIA# [id number] Division Traffic Superintendent: Alhaji Galvez MD Performed By: #### S ####[facility] LABCLIA [id number] [address] OF [facility] GROSS DESCRIPTION Normal [facility] Comment on above: Order Comment: Speci men Type: TISSUE SPECIMENOrdering Facility: [facility] Address: [address] [place] [address] Result Comment: A. C olon, Right, Biopsy Received in formalin are multiple pieces of boss, soft tissue aggregating to 1.4 x 0.5 x 0.1 cm. Totally submitted in two cassettes. B. Colon, Left, Biopsy Received in formalin are two pieces of boss, soft tissue aggregating to 0.4 x 0.2 x 0.1 cm. Totally submitted in one cassette. DB May 22, 2024 10:34 PM Gross examination performed at [facility], [address] [facility], [place] [address] Performed By: #### S ####[facility] LABCLIA [id number] [id number] OF [facility] XR Ankle - right 3 Viewson 0 05-15-2024 Imaging Result: XRAY: Three views were taken today AP/MORT/LAT Ankle: No fractures or dislocations seen no spurring noted at the lateral ankle ligament complex noted as reported on the MRI [facility] Radiology Study observation (narrative) [facility] ALL CBC WITH AUTO DIFFon BASOPHILS ABSOLUTE AUTO 0 [facility] Basophils/100 WBC (Bld) 0.4 % 0.2 - 2.0 % [facility] Eosinophils/100 WBC (Bld) 2.2 % 0.9 - 7.0 % [facility] Erythrocyte distribution width (RBC) [Ratio] 12.9 % 11.0 - 15.0 % [facility] Hematocrit (Bld) [Volume fraction] 41.2 % 36.0 - 48.0 % [facility] Hemoglobin (Bld) [Mass/Vol] 13.8 g/dL 12.0 - 16.0 g/dL [facility] IMMATURE GRANULOCYTES ABS AUTO 0.19 High [facility] Immature granulocytes/100 WBC (Bld) 1.9 % High 0.0 - 0.5 % [facility] Interpretation and review of laboratory results Abnormal [facility] LYMPHOCYTES ABSOLUTE AUTO 3 [facility] Lymphocytes/100 WBC (Bld) 30.1 % 20.5 - 60.0 % [facility] MCH (RBC) [Entitic mass] 32.7 pg 26.7 - 34.0 pg [facility] MCHC (RBC) [Mass/Vol] 33.5 g/dL 29.9 - 35.2 g/dL [facility] MCV (RBC) [Entitic vol] 97.6 fL 81.0 - 99.0 fL [facility] MONOCYTES ABSOLUTE AUTO 0.7 [facility] Monocytes/100 WBC (Bld) 6.6 % 1.7 - 12.0 % [facility] NEUTROPHILS ABSOLUTE AUTO 5.8 [facility] Neutrophils/100 WBC (Bld) 58.8 % 43.0 - 75.0 % [facility] Platelet mean volume (Bld) [Entitic vol] 10.8 fL 9.5 - 13.5 fL [facility] TBH EO # 0.2 [facility] PLT 206 [facility] RBC 4.22 [facility] WBC 9.9 [facility] CNPNon 05-06-2024 CNPN Telephone (CARDMN) ORION HARPER ([id number]) 1990 F Date Time Provider Department 05/06/24 SOLO MORA During your visit today, we recorded the following information about you: Criss Mccrary 05/06/2024 1:41 PM Signed Echo was faxed to Anne-Marie @ [phone] AND scanned into outside ep. Patient is [...] Status:Closed by CRISS MCCRARY on 05/06/24 Normal [facility] Liver ultrasound attenuation by transient elastographyon [...] and referral to hepatology. Zehra Gray PA-C [facility] Fibroscan Fibrosis Risk <7 kPA = F0-F2 [...] Int J Clin Exp Med. 2015 Jan 15;8(10):28845-15. PMID: [id number]; PMCID: [id number]. Ruthann M, Juan FANTASMA, Rico M, Cosmo F, Tawnya J, Everardo O, Leyla F, Franci M, Alejandro G, Dorie A, Gianna E, Leyla L, French G, Kashmir A, Vicente U, Jodi S, Franc P, Max V, Last V, Leena M, Neo MARIE. Refining the Baveno elastography criteria for the definition of compensated advanced chronic liver disease. J Hepatol. 2020;74(5):0401-0156. doi: 10.1016/j.jhep.2020.1 1.050. Epub 2019Apr 01. PMID: [id number]. Izabel Bob, Chastity B, Martha M, Xiao Bob, Joon S, Nuria Roth, Trevin Roth, Trixie Kendrick. AASLD practice guidance on the clinical assessment and management of nonalcoholic fatty liver disease. Hepatology. 2022;77(5):3308-3812. doi:10.1097/HEP.34569 [id number] [facility] Radiology Study observation (narrative) [facility] Radiology Study observation (narrative) [facility] A1AT SerPl-mCncon 04-26-2024 Alpha 1 antitrypsin [Mass/Vol] 123 mg/dL Normal 90-200 [facility] Comment on above: Order Comment: Speci men Type: BLOOD SPECIMEN [facility]: [facility] Address: [address] [place] [address] Performed By: #### 2 064-4, 1825-9 #### [facility] CLIA [id number] [address] [place] [address] [place] AFP SerPl-mCncon 04-26-2024 AFP [Mass/Vol] 3.01 ng/mL Normal <9.00 Lisa parry Comment on above: Order Comment: Rl basilio Type: BLOOD SPECIMEN Ordering Facility: [facility] Address: [address] [place] [address] Result Comment: The Alpha-Fetoprotein test was performed using the Sage ReelSurfer DxI immunoenzymatic assay. Results obtained with different assay methods or kits cannot be used interchangeably. Performed By: #### 1 834-1 #### [facility] [place] [id number] [address] [place] [address] [place] DENY BY IFA WITH REFLEXon Nuclear Ab Ql (S) Negative Normal Negative Lisa zepeda Comment on above: Order Comment: Rl basilio Type: BLOOD SPECIMEN Ordering [facility]: [facility] Address: [address] [place] [address] Result Comment: Anti -nuclear antibody test is used as an aid in diagnosis of systemic autoimmune diseases. Where positive and clinically warranted, follow-up using disease-specific testing is recommended. Low positive titers are not uncommon with advanced age, certain chronic infections, and malignancies among others. Test methodology: Indirect fluorescence immunoassay (IFA) using HEp-2 cells. Performed By: #### A NAIFR #### [facility] CLIA [id number] [address] [place] [address] [place] CBC W Auto Differential pane l (Bld)on 04-26-2024 Basophils (Bld) [#/Vol] 0.06 10*3/uL [facility] Differential cell count method Nom (Bld) Auto [facility] Eosinophils (Bld) [#/Vol] [facility] Immature granulocytes (Bld) [#/Vol] 0.33 10*3/uL High [facility] Immature granulocytes/100 WBC (Bld) 2.7 % [facility] Lymphocytes (Bld) [#/Vol] 2.80 10*3/uL [facility] MCH (RBC) [Entitic mass] 32.0 pg 26.0 - 34.0 pg [facility] Monocytes (Bld) [#/Vol] 0.41 10*3/uL NINF [facility] Neutrophils (Bld) [#/Vol] 8.78 10*3/uL High [facility] Nucleated RBC (Bld) [#/Vol] NINF [facility] Nucleated RBC/100 WBC (Bld) [Ratio] 0.0 % /100 WBC [facility] Platelet mean volume (Bld) [Entitic vol] 10.8 fL 9.0 - 12.7 fL [facility] Platelets (Bld) [#/Vol] 271 10*3/uL [facility] WBC (Bld) [#/Vol] 12.39 10*3/uL High [facility] Basophils (Bld) [#/Vol] 0.06 10*3/uL Normal <0.11 [facility] Comment on above: Order Comment: Speci men Type: BLOOD SPECIMEN [facility] Address: [address] [place] [address] Performed By: #### 5 0190-8, 2275-, #### [facility] CLIA [id number] [address] [place], [place] [id number] [place] [address] [place] Basophils/100 WBC (Bld) 0.5 % Normal [facility] Comment on above: Order Comment: Speci men Type: BLOOD SPECIMEN Ordering Facility: [facility] Address: [address] [place] [address] Performed By: #### 5 0190-8, 6-4, 29926-3 #### [facility] CLIA [id number] [address] [place] [address] [place] Differential cell count method Nom (Bld) Auto Normal [facility] ital Comment on above: Order Comment: Speci men Type: BLOOD SPECIMEN Ordering [facility]: [facility] Address: [address] [place] [address] Performed By: #### 5 0190-8, 2275-07, #### [facility] CLIA [id number] [address] [facility] [place] [address] [place] Eosinophils (Bld) [#/Vol] 10*3/uL Normal <0.46 [facility] Comment on above: Order Comment: Speci men Type: BLOOD SPECIMEN Ordering Facility: [facility] Address: [address] [place] [address] Performed By: #### 5 0190-8, 2275-07, #### [facility] CLIA [id number] [address] [place] [address] [place] Eosinophils/100 WBC (Bld) 0.1 % Normal [facility] Comment on above: Order Comment: Speci men Type: BLOOD SPECIMEN Ordering Facility: [facility] Address: [address] [place] [address] Performed By: #### 5 0190-8, 2275-07, #### [facility] CLIA [id number] [address] [place] [id number] [place] [address] [place] Erythrocyte distribution width (RBC) [Ratio] 12.5 % Normal 11.5-15.0 [facility] Comment on above: Order Comment: Speci men Type: BLOOD SPECIMEN Ordering Facility: [facility] Address: [address] [place] [address] Performed By: #### 5 0190-8, 2275-07, #### [facility] CLIA [id number] [facility] [place] [address] [place] Hematocrit (Bld) [Volume fraction] 46.1 % High 36.0-46.0 [facility] Comment on above: Order Comment: Speci men Type: BLOOD SPECIMEN Ordering Facility: [facility] Address: [address] [place] [address] Performed By: #### 5 0190-8, 2275-07, #### [facility] CLIA [id number] [facility] [place] [address] [place] Hemoglobin (Bld) [Mass/Vol] 15.5 g/dL Normal 11.5-15.5 [facility] Comment on above: Order Comment: Speci men Type: BLOOD SPECIMEN Ordering Facility: [facility] Address: [facility] [place] [address] Performed By: #### 5 0190-8, 2275-4, #### [facility] CLIA [id number] [address] [place] [address] [place] Immature granulocytes (Bld) [#/Vol] 0.33 10*3/uL High <0.10 [facility] Comment on above: Order Comment: Speci men Type: BLOOD SPECIMEN Ordering Facility: [facility] Address: [address] [place] [address] Performed By: #### 5 0190-8, 2275-07, #### [facility] CLIA [id number] [address] [place] [address] [place] Immature granulocytes/100 WBC (Bld) 2.7 % Normal [facility] Comment on above: Order Comment: Speci men Type: BLOOD SPECIMEN Ordering Facility: [facility] Address: [address] [place] [address] Performed By: #### 5 0190-8, 2275-07, #### [facility] CLIA [id number] [address] [place] [address] [place] Lymphocytes (Bld) [#/Vol] 2.80 10*3/uL Normal 1.00-4.00 [facility] Comment on above: Order Comment: Speci men Type: BLOOD SPECIMEN Ordering Facility: [facility] Address: [address] [place] [address] Performed By: #### 5 0190-8, 2275-07, #### [facility] CLIA [id number] [address] [place] [address] [place] Lymphocytes/100 WBC (Bld) 22.6 % Normal [facility] Comment on above: Order Comment: Speci men Type: BLOOD SPECIMEN Ordering Facility: [facility] Address: [address] [place] [address] Performed By: #### 5 0190-8, 2275-07, 69716-9 #### [facility] CLIA [id number] OF [facility] MCH (RBC) [Entitic mass] 32.0 pg Normal 26.0-34.0 [facility] Comment on above: Order Comment: Speci men Type: BLOOD SPECIMEN Ordering Facility: [facility] Address: [address] [place] [address] Performed By: #### 5 0190-8, 2275-07, #### [facility] CLIA [id number] [address] [place] [address] [place] MCHC (RBC) [Mass/Vol] 33.6 g/dL Normal 30.5-36.0 [facility] Comment on above: Order Comment: Speci men Type: BLOOD SPECIMEN Ordering Facility: [facility] Address: [address] [place] [address] Performed By: #### 5 0190-8, 2275-07, 18246-9 #### [facility] CLIA [id number] [address] [place] [address] [place] MCV (RBC) [Entitic vol] 95.1 fL Normal 80.0-100.0 [facility] Comment on above: Order Comment: Speci men Type: BLOOD SPECIMEN Ordering Facility: [facility] Address: [address] [place] [address] Performed By: #### 5 0190-8, 2275-07, #### [facility] CLIA [id number] [address] [place] [address] [place] [facility] [place] Monocytes (Bld) [#/Vol] 0.41 10*3/uL Normal <0.87 [facility] Comment on above: Order Comment: Speci men Type: BLOOD SPECIMEN Ordering Facility: [facility] Address: [address] [place] [address] Performed By: #### 5 0190-8, 2275-07, #### [facility] CLIA [id number] [address] [facility] [place] [address] [place] Monocytes/100 WBC (Bld) 3.3 % Normal [facility] Comment on above: Order Comment: Speci men Type: BLOOD SPECIMEN Ordering Facility: [facility] Address: [address] [place] [address] Performed By: #### 5 0190-8, 2275-07, #### [facility] CLIA [id number] [address] [place] [address] [place] Neutrophils (Bld) [#/Vol] 8.78 10*3/uL High 1.45-7.50 [facility] Comment on above: Order Comment: Speci men Type: BLOOD SPECIMEN Ordering Facility: [facility] Address: [address] [place] [address] Performed By: #### 5 0190-8, 2275-07, #### [facility] CLIA [id number] [address] [place] [address] [place] Neutrophils/100 WBC (Bld) 70.8 % Normal [facility] Comment on above: Order Comment: Speci men Type: BLOOD SPECIMEN Ordering Facility: [facility] Address: [address] [place] [address] Performed By: #### 5 0190-8, 2275-07, #### [facility] CLIA [id number] [address] [place] [place] [address] [place] Nucleated RBC (Bld) [#/Vol] 10*3/uL Normal <0.01 [facility] Comment on above: Order Comment: Speci men Type: BLOOD SPECIMEN Ordering Facility: [facility] Address: [address] [place] [address] Performed By: #### 5 0190-8, 2275-07, #### [facility] CLIA [id number] [address] [facility] [place] [address] [place] Nucleated RBC/100 WBC (Bld) [Ratio] 0.0 /100 WBC Normal [facility] Comment on above: Order Comment: Speci men Type: BLOOD SPECIMEN Ordering Facility: [facility] Address: [facility] [place] [id number] Performed By: #### 5 0190-8, 2275-4, #### [facility] CLIA [id number] [address] [place] [address] [place] Platelet mean volume (Bld) [Entitic vol] 10.8 fL Normal 9.0-12.7 [facility] Comment on above: Order Comment: Speci men Type: BLOOD SPECIMEN Ordering Facility: [facility] Address: [address] [place], [place] [address] Performed By: #### 5 0190-8, 2275-, #### [facility] CLIA [id number] [address] [place] [address] [place] Platelets (Bld) [#/Vol] 271 10*3/uL Normal 150-400 [facility] Comment on above: Order Comment: Speci men Type: BLOOD SPECIMEN Ordering Facility: [facility] Address: [address] [place], [place] [address] [address] Performed By: #### 5 0190-8, 2275-07, #### [facility] CLIA [id number] [address] [place] [address] [place] RBC (Bld) [#/Vol] 4.85 10*6/uL Normal 3.90-5.20 [facility] Comment on above: Order Comment: Speci men Type: BLOOD SPECIMEN Ordering Facility: [facility] Address: [address] [place] [address] Performed By: #### 5 0190-8, 2275-07, #### [facility] CLIA [id number] [address] [place] [address] [place] WBC (Bld) [#/Vol] 12.39 10*3/uL High 3.70-11.00 [facility] Comment on above: Order Comment: Speci men Type: BLOOD SPECIMEN Ordering Facility: [facility] Address: [address] [place] [id number] Performed By: #### 5 0190-8, 2276-4, 38747-0 #### [facility] CLIA [id number] 9[address]28 [facility] [place], [place] [address] [place] [address] STATES OF [facility] CBC W AUTO DIFF BLDon C[facility] BASOPHILS # BLD AUTO 0.06 [facility] [place] DIFFERENTIAL METHOD BLD Auto [facility] EOSINOPHIL # BLD AUTO <0.03 [facility] [place] LYMPHOCYTES # BLD AUTO 2.8 [facility] MONOCYTES # BLD AUTO 0.41 [facility] [place] NEUTROPHILS # BLD AUTO 8.78 High [facility] NRBC # BLD AUTO <0.01 [facility] [place] C[facility] NRBC/100 WBC BLD-RTO 0 /100 WBC [facility] PLATELET # BLD AUTO 271 [facility] PMV BLD AUTO 10.8 fL 9.0 - 12.7 fL [facility] WBC # BLD AUTO 12.39 High [facility] IMM GRANULOCYTES # BLD AUTO 0.33 High [facility] [place] IMM GRANULOCYTES/LEUK NFR BLD AUTO 2.7 % [facility] MCH (RBC) [Entitic mass] 32 pg 26.0 - 34.0 pg [facility] Specimen Type: BLOOD SPECIMEN Ordering Facility: [facility] Address: [address] [place] [address] Original Ordering Provider: ILIANA Alexandra 04-26-2024 CNOV Office Visit (TANI ) ORION HARPER ([id number]) 1990 F Date Time Provider Department 04/26/24 3:05 PM ILIANA MERCADO During your visit [...] do not hesitate to send me a Orteq message or call. FARNAZ Mohr Lauren, PA-C [...] she saw Dr. Hylton in 2021 in [facility]. She was told fibroscan was F1 fibrosis [...] Pertinent Workup to Date: 05/[address] Winn ASSESSMENT/PLAN: 1. 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 Colonosc (more content not included)... Normal [facility] Office Visit (ORMDNA ) ORION HARPER ([id number]) 1990 F Date Time Provider Department 04/26/24 [...] Swelling History of Present Illness: PAIN EVALUATION 04/24/20241949 Pain Location: Ankle-Right Description: Aching;Sharp;Shooting ;Sore;Throbbing Duration [...] and plan (more content not included)... Normal [facility] Ceruloplasmin SerPl-mCncon 0 04-26-2024 Ceruloplasmin [Mass/Vol] 27 mg/dL Normal 16-45 [facility] Comment on above: Order Comment: Speci men Type: BLOOD SPECIMEN Ordering Facility: [facility] Address: [address] [place] [address] Performed By: #### 2 064-4, 1825-9 #### [facility] CLIA [id number] [address] [place] [address] [place] Comprehensive metabolic 2000 panelon 04-26-2024 Albumin [Mass/Vol] 4.7 g/dL 3.9 - 4.9 g/dL [facility] ALP [Catalytic activity/Vol] 144 U/L High 34 - 123 U/L [facility] ALT [Catalytic activity/Vol] 192 U/L High 7 - 38 U/L [facility] Anion gap [Moles/Vol] 13 mmol/L 8 - 15 mmol/L [facility] AST [Catalytic activity/Vol] 99 U/L High 13 - 35 U/L [facility] Bilirubin [Mass/Vol] 0.3 mg/dL 0.2 - 1 .3 mg/dL [facility] Calcium [Mass/Vol] 9.2 mg/dL 8.5 - 10. 2 mg/dL [facility] Chloride [Moles/Vol] 100 mmol/L 98 - 10 7 mmol/L [facility] CO2 [Moles/Vol] 25 mmol/L 22 - 30 mmol/L [facility] Creatinine [Mass/Vol] 0.58 mg/dL 0.58 - 0.96 mg/dL [facility] GFR/1.73 sq M.predicted among non-blacks MDRD (S/P/Bld) [Vol rate/Area] 121 mL/min/{1.73_m2} - PINF [facility] Comment on above: Estimated Glomerular Filtration Rate [...] [Mass/Vol] 95 mg/dL 74 - 99 mg/dL [facility] Comment on above: The [place] Diabete s Association (ADA) provides guidance for [...] Standards of Medical Care in Diabetes 2016, [place] Diabetes Association. Diabetes Care. 2016.39(Suppl 1). Interpretation and review of laboratory results Abnormal [facility] Potassium [Moles/Vol] 4.0 mmol/L 3.7 - 5.1 mmol/L [facility] Protein [Mass/Vol] 8.0 g/dL 6.3 - 8.0 g/dL [facility] Sodium [Moles/Vol] 138 mmol/L 136 - 144 mmol/L [facility] Urea nitrogen [Mass/Vol] 12 mg/dL 7 - 21 mg/dL [facility] Albumin [Mass/Vol] 4.7 g/dL Normal 3.9-4.9 [facility] Comment on above: Order Comment: Speci men Type: BLOOD SPECIMEN Ordering Facility: [facility] Address: [address] [place] [address] Performed By: #### 5 0190-8, 2275-4, 53792-3 #### [facility] CLIA [id number] [address] [place] [address] [place] ALP [Catalytic activity/Vol] 144 U/L High 34-123 [facility] Comment on above: Order Comment: Speci men Type: BLOOD SPECIMEN Ordering Facility: [facility] Address: [address] [place] [address] Performed By: #### 5 0190-8, 4, #### [facility] CLIA [id number] [address] [place] [address] [place] ALT [Catalytic activity/Vol] 192 U/L High 7-38 [facility] Comment on above: Order Comment: Speci men Type: BLOOD SPECIMEN Ordering Facility: [facility] Address: [address] [place] [address] Performed By: #### 5 0190-8, 2275-07, 44007-2 #### [facility] CLIA [id number] [address] [place] [address] [place] Anion gap [Moles/Vol] 13 mmol/L Normal 8-15 [facility] Comment on above: Order Comment: Speci men Type: BLOOD SPECIMEN Ordering Facility: [facility] Address: [address] [place] [address] Performed By: #### 5 0190-8, 2275-4, 13784-9 #### [facility] CLIA [id number] [address] [place] [address] [place] AST [Catalytic activity/Vol] 99 U/L High 13-35 [facility] Comment on above: Order Comment: Speci men Type: BLOOD SPECIMEN Ordering Facility: [facility] Address: [address] [place], [place] [address] [address] Performed By: #### 5 0190-8, 2275-07, #### [facility] CLIA [id number] [address] [place] [address] [place] Bilirubin [Mass/Vol] 0.3 mg/dL Normal 0.2-1.3 [facility] Comment on above: Order Comment: Speci men Type: BLOOD SPECIMEN Ordering Facility: [facility] Address: [address] [place] [address] Performed By: #### 5 0190-8, 2275-07, #### [facility] CLIA [id number] [address] [place] [address] [place] Calcium [Mass/Vol] 9.2 mg/dL Normal 8.5-10.2 [facility] Comment on above: Order Comment: Speci men Type: BLOOD SPECIMEN Ordering Facility: [facility] Address: [address] [place], [place] [address] [address] Performed By: #### 5 0190-8, 2275-07, #### [facility] [place] [id number] [address] [place] [address] [place] Chloride [Moles/Vol] 100 mmol/L Normal 98-107 [facility] Comment on above: Order Comment: Speci men Type: BLOOD SPECIMEN Ordering Facility: [facility] Address: [address] [place] [address] Performed By: #### 5 0190-8, 2275-07, #### [facility] CLIA [id number] [address] [place] [address] [place] CO2 [Moles/Vol] 25 mmol/L Normal 22-30 [facility] Comment on above: Order Comment: Speci men Type: BLOOD SPECIMEN Ordering Facility: [facility] Address: [address] [id number] Performed By: #### 5 0190-8, 6-4, 42485-7 #### [facility] CLIA [id number] [address] [place] [address] [place] Creatinine [Mass/Vol] 0.58 mg/dL Normal 0.58-0.96 [facility] Comment on above: Order Comment: Rl men Type: BLOOD SPECIMEN Ordering Facility: [facility] Address: [address] [place] [address] Performed By: #### 5 0190-8, 2275-4, 31117-9 #### [facility] CLIA [id number] [address] [place] [address] [place] Creatinine and Glomerular filtration rate.predicted panel (S/P/Bld) 121 mL/min/1.73m??? Normal >=60 [facility] Comment on above: Order Comment: Rl basilio Type: BLOOD SPECIMEN Ordering Facility: [facility] Address: [address] [place] [address] Result Comment: Chely mated Glomerular Filtration Rate [...] actual GFR. Performed By: #### 5 0190-8, 2275-4, 38119-9 #### [facility] CLIA [id number] [address] [facility] [place] [address] [place] Glucose [Mass/Vol] 95 mg/dL Normal 74-99 [facility] Comment on above: Order Comment: Rl basilio Type: BLOOD SPECIMEN Ordering Facility: [facility] Address: [address] [place] [address] Result Comment: The [place] Diabetes Association (ADA) provides guidance for cutoff [...] Standards of Medical Care in Diabetes 2016, [place] Diabetes Association. Diabetes Care. 2016.39(Suppl 1). Performed By: #### 5 0190-8, 2275-07, #### [facility] CLIA [id number] [address] [place] [address] [place] Potassium [Moles/Vol] 4.0 mmol/L Normal 3.7-5.1 [facility] Comment on above: Order Comment: Rl basilio Type: BLOOD SPECIMEN Ordering Facility: [facility] Address: [address] [place] [address] Performed By: #### 5 0190-8, 2275-07, #### [facility] CLIA [id number] [address] [place] [address] [place] Protein [Mass/Vol] 8.0 g/dL Normal 6.3-8.0 [facility] Comment on above: Order Comment: Rl basilio Type: BLOOD SPECIMEN Ordering Facility: [facility] Address: [address] [place] [address] Performed By: #### 5 0190-8, 2275-07, #### [facility] CLIA [id number] [address]53 [facility] [place] [address] [place] Sodium [Moles/Vol] 138 mmol/L Normal 136-144 [facility] Comment on above: Order Comment: Rl basilio Type: BLOOD SPECIMEN Ordering Facility: [facility] Address: [address] [place] [address] Performed By: #### 5 0190-8, 2275-07, #### [facility] CLIA [id number] [address] [place] [address] [place] Urea nitrogen [Mass/Vol] 12 mg/dL Normal 7-21 [facility] Comment on above: Order Comment: Dionicioi chetna Type: BLOOD SPECIMEN Ordering Facility: [facility] Address: [address] [place] [address] Performed By: #### 5 0190-8, 6-4, 16295-1 #### [facility] CLIA [id number] [address] [place] [address] [place] FERRITINon 04-26-2024 Ferritin [Mass/Vol] 420.9 ng/mL High 14.7 - 2 05.1 ng/mL [facility] Ferritin SerPl-mCncon 2024 Ferritin [Mass/Vol] 420.9 ng/mL High 14.7-205.1 [facility] Comment on above: Order Comment: Dionicioi chetna Type: BLOOD SPECIMEN Ordering Facility: [facility] Address: [address] [place] [address] Performed By: #### 5 0190-8, 4, 06326-7 #### [facility] CLIA [id number] [address] [place] [address] [place] Ferritin [Mass/Vol]on 2024 Interpretation and review of laboratory results Abnormal [facility] HAV IgM Ser Qlon 04-26-2024 HAV IgM Ql (S) Negative Normal Negative [facility] Comment on above: Order Comment: Rl basilio Type: BLOOD SPECIMEN Ordering Facility: [facility] Address: [address] [place] [address] Result Comment: No e vidence of recent infection with Hepatitis A virus. Performed By: #### 5 0190-8, 6-4, 80276-4 #### [facility] CLIA [id number] [address] [place] [address] [place] HBV core IgM Ser Qlon 2024 HBV core IgM Ql (S) Negative Normal Negative [facility] Comment on above: Order Comment: Rl basilio Type: BLOOD SPECIMEN Ordering Facility: [facility] Address: [address] [place] [address] Result Comment: No e vidence of recent infection with Hepatitis B virus. Should recent infection be suspected, repeat testing may be considered 3-4 weeks after this draw. Performed By: #### 5 195-3, 41348-5, 16004-7 #### [facility] CLIA [id number] [address] [place] [address] [place] HBV surface Ag Ser Qlon HBV surface Ag Ql (S) Negative Normal Negative [facility] Comment on above: Order Comment: Specmaribel basilio Type: BLOOD SPECIMEN Ordering Facility: [facility] Address: [address] [place] [address] Performed By: #### 5 0190-8, 2276-4, 69435-0 #### [facility] CLIA [id number] [address] [facility] [place] [address] [place] HCV Ab Ser Qlon 04-26-2024 HCV Ab Ql (S) Negative Normal Negative [facility] Comment on above: Order Comment: Rl basilio Type: BLOOD SPECIMEN Ordering Facility: [facility] Address: [address] [place] [address] Result Comment: The result suggests no evidence of active infection with Hepatitis C virus. Should recent infection be suspected, repeat testing may be considered 4-6 weeks after this draw. Performed By: #### 1 6128-1 #### [facility] CLIA [id number] [address] [place] [address] [place] Iron and Iron binding capaci ty panelon 04-26-2024 Interpretation and review of laboratory results Normal [facility] Iron [Mass/Vol] 105 ug/dL 41 - 186 ug/dL [facility] Iron binding capacity [Mass/Vol] 340 ug/dL 232 - 386 ug/dL [facility] Iron/TIBC [Molar ratio] 30.9 % 15.0 - 57.0 % [facility] Iron [Mass/Vol] 105 ug/dL Normal 41-186 [facility] Comment on above: Order Comment: Rl basilio Type: BLOOD SPECIMEN Ordering Facility: [facility] Address: [address] [place] [address] Performed By: #### 5 0190-8, 6-4, 06408-4 #### [facility] CLIA [id number] [address] [place] [address] [facility] Iron binding capacity [Mass/Vol] 340 ug/dL Normal 232-386 [facility] Comment on above: Order Comment: Speci men Type: BLOOD SPECIMEN Ordering Facility: [facility] Address: [address] [place], [place] [address] [place] [id number] Performed By: #### 5 0190-8, 2275-07, #### [facility] CLIA [id number] [address] [place] [id number] [facility] Iron/TIBC [Molar ratio] 30.9 % Normal 15.0-57.0 [facility] Comment on above: Order Comment: Speci men Type: BLOOD SPECIMEN Ordering Facility: [facility] Address: [address] [place], [place] [address] [address] Performed By: #### 5 0190-8, 2275-07, #### [facility] CLIA [id number] [address] [place] [address] [facility] - Hematology and Cell countson 04-26-2024 Basophils/100 WBC (Bld) 0.5 % [facility] Eosinophils/100 WBC (Bld) 0.1 % [facility] Erythrocyte distribution width (RBC) [Ratio] 12.5 % 11.5 - 15.0 % [facility] Hematocrit (Bld) [Volume fraction] 46.1 % High 36.0 - 46.0 % [facility] Hemoglobin (Bld) [Mass/Vol] 15.5 g/dL 11.5 - 15.5 g/dL [facility] Lymphocytes/100 WBC (Bld) 22.6 % [facility] MCHC (RBC) [Mass/Vol] 33.6 g/dL 30.5 - 36.0 g/dL [facility] MCV (RBC) [Entitic vol] 95.1 fL 80.0 - 100.0 fL [facility] Monocytes/100 WBC (Bld) 3.3 % [facility] Neutrophils/100 WBC (Bld) 70.8 % [facility] RBC (Bld) [#/Vol] 4.85 10*6/uL 3.90 - 5.2 0 m/uL [facility] Mitochondria Ab IF Ql (S)on 04-26-2024 Mitochondria M2 Ab IA Qn (S) 2.8 Units Normal <=20.0 [facility] Comment on above: Order Comment: Speci men Type: BLOOD SPECIMEN Ordering Facility: [facility] Address: [address] [place] [address] Performed By: #### 5 0190-8, 2276-4, 47708-8 #### [facility] CLIA [id number] [address] [facility]. [address] Mitochondria M2 Ab Ql (S) Negative Normal Negative [facility] Comment on above: Order Comment: Rl basilio Type: BLOOD SPECIMEN Ordering Facility: [facility] Address: [address] [place] [address] Result Comment: Anti -mitochondrial antibody test is used as an aid in diagnosis of primary biliary cholangitis. Clinical correlation is required. Performed By: #### 5 0190-8, 2276-4, 04663-8 #### [facility] CLIA [id number] [address] [facility]. [address] No Panel Informationon 04-26 [facility] Interpretation and review of laboratory results Abnormal [facility] PT panel Coag (PPP)on 2024 INR Coag (PPP) [Relative time] 0.9 {INR} 0.9 - 1.3 [facility] Comment on above: Vitamin K Antagonist (VKA) Therapeutic Range: INR 2 to 3 (Target INR of 2.5) Note: For patients treated with VKA drugs, such as warfarin, the [place] [employer] 2012 Guideline recommends [...] Chest 2012, 141:7S-47S Lit SALVADOR et óscar. [facility] 2017, 70: 252-289 Interpretation and review of laboratory results Normal [facility] PT Coag (PPP) [Time] 10.6 s [facility] INR Coag (PPP) [Relative time] 0.9 {INR} Normal 0.9-1.3 [facility] Comment on above: Order Comment: Rl basilio Type: BLOOD SPECIMEN Ordering Facility: [facility] Address: [address] [place] [address] Result Comment: Amya min K Antagonist (VKA) Therapeutic Range: INR 2 to 3 (Target INR of 2.5) Note: For patients treated with VKA drugs, such as warfarin, the [place] [employer] 2012 Guideline recommends [...] Chest 2012, 141:7S-47S Lit SALVADOR et al. [facility] 2017, 70: 252-289 Performed By: #### 3 4528-0 #### [facility] CLIA [id number] 12500 [facility] [place], [place] [address] [place] [address] [place] PT Coag (PPP) [Time] 10.6 s Normal 9.7-13.0 [facility] Comment on above: Order Comment: Rl basilio Type: BLOOD SPECIMEN Ordering Facility: [facility] Address: [address] [place] [address] Performed By: #### 3 4528-0 #### [facility] CLIA [id number] [address] [place] [address] [place] Smooth muscle Ab Ql (S)on ACTIN SMOOTH MUSCLE IGG QUALITATIVE Negative Normal Negative [facility] Comment on above: Order Comment: Speci men Type: BLOOD SPECIMEN Ordering Facility: [facility] Address: [address] [place] [address] Performed By: #### 5 0190-8, 2276-4, 68160-8 #### [facility] CLIA [id number] ACTIN SMOOTH MUSCLE IGG QUANTITATIVE 5 Units Normal <20 [facility] Comment on above: Order Comment: Speci men Type: BLOOD SPECIMEN Ordering Facility: [facility] Address: [address] [place] [address] Performed By: #### 5 0190-8, 2276-4, 17343-5 #### [facility] [place] [id number] [address] [place] [id number] [facility] ECHOon 04-09-2024 Echocardiography Echocardiography Report: Transthoracic Echo [facility] Date of service: 04/09/2024 3:28:57 PM Ordering physician: SOLO MORA Indication: Syncope Technologist: Josephine West [facility] Interpreting physician: Sheri Ac MD PATIENT: Name: [...] * * Final * * * CC [facility] : [id number] [facility] 04-05-2024 CNPN Telephone (CARDMN) ORION HARPER ([id number]) 1990 F Date Time Provider Department 04/05/24 SOLO MORA During your visit today, we recorded the following information about you: Criss Mccrary 04/05/2024 1:02 PM Signed Outside ep I have a copy @ my desk Criss Velez 04/09/2024 11:49 AM Signed April 09, 2024 Patient Contact Number: [phone] Patient last seen within the last year: Yes 12/15 Reason For Call: Test Results Zio- 12/2023 Physician: Dr. Mora Patient was informed that non-urgent calls may be returned within the next three business days. Yes Joy Dahl RN 04/09/2024 2:14 PM Signed Cardiac clearance and office noted faxed to [facility]. In regards to Zio monitor. Dr Mora reviewed no concerning findings. JW Ruiz Octavia 04/09/2024 2:38 PM Signed Form completed, [...] Medical Records [[id number]] Cmt: Cardio Clearance [facility] [place] Results [95] Cmt: Zio Prescriptions as of [...] Status:Closed by CRISS MCCRARY on 04/05/24 Normal [facility] HEMOGLOBIN A1con 04-04-2024 HEMOGLOBIN A1c 5.5 [...] diagnosis of diabetes in children. According to [place] Diabetes Association (ADA) guidelines, hemoglobin A1c <7.0% represents optimal control in non- diabetic patients. Different metrics may apply to specific patient populations. Standards of Medical Care in Diabetes(ADA). Performed By: #### 4 96, 733 #### [facility] [address], [address] [place] [address] Analyst Market Intelligence: Tim Dotson MD POTASSIUMon 04-04-2024 Potassium [Moles/Vol] 3.7 mmol/L Normal 3.5-5.[address] [facility] Comment on above: Order Comment: FASTI NG:YES FASTING: YES Performed By: #### 4 96, 733 #### [facility] [address] [place] [address] Analyst Market Intelligence: Tim Dotson MD CNPEma 04-02-2024 CNPN Telephone (CARDMN) ORION HARPER ([id number]) 1990 F Date Time Provider Department 04/02/24 SOLO MORAMN During your visit today, we recorded the following information about you: Criss Mccrary 04/02/2024 3:53 PM Signed This 'Ankle Surgery Clearance' was faxed over to Dr. Giovani Hagen (PCP) @ [phone] for signing. I spoke with the patient. [...] Reason for Visit: Received Outside Medical Records [[id number]] Cmt: [facility] [place] Prescriptions as of 04/02/2024 - amphetamine-dextroamp hetamine [...] Status:Closed by CRISS MCCRARY on 04/02/24 Normal [facility] IGP,APTIMA HPV,AGE GDLNon AGE GDLN ACOG TESTING Note . [facility] Comment on above: TESTS RESULT FLAG UN ITS REF RANGE LAB Clinician Provided Cytology Information Source.............Vagina No. of containers..01 ThinPrep Vial Age Priyao ACOG Starla... 30- 01 FLAG LEGEND: L-Low Normal,H-High Normal,LL-Alert Low,HH-Alert High <-Panic Low,>-Panic High,A-Abnormal,AA-Critical Abnormal Performed at: 01 =G Lab34 [place] [address] Zoraida Hawkins MD, HPV APTIMA Negative Negative [facility] Comment on above: This nucleic acid am plification test detects fourteen high- risk HPV types (16,18,31,33,35,39,45,51,52,56,58,59,66,68) without differentiation. Performed at: = - [address] [id number] Production Crew Supervisor: Zoraida Hawkins MD, Phone: [phone] Performed at: - [address] [id number] Production Crew Supervisor: Zoraida Hawkins MD, Phone: [phone] IGP, APTIMA HPV, RFX 16/18,45 Note . [facility] Comment on above: TESTS RESULT FLAG UN ITS REF RANGE LAB DIAGNOSIS: 02 NEGATIVE FOR INTRAEPITHELIAL LESION OR MALIGNANCY. Specimen adequacy: 02 Satisfactory for evaluation. Performed by: 02 Zehra Brush, Machine Gunner (ASCP) . 02 Note: Note 02 The [...] <-Panic Low,>-Panic High,A-Abnormal,AA-Critical Abnormal Performed at: 02 [facility] [address] [facility] [place] [address] Zoraida Hawkins MD, SPATULA-ALONE VAGINA [facility] Ambulatory Visit Summaryon 0 12-28-2023 Ambulatory Visit [...] FRIEDMAN, Madhuri Kendrick Where: [facility] [id number]- Medications What How Much When Instructions Unchanged [...] choosing us for your care. Normal [facility] Urology Office/Clinic Noteon 12-28-2023 Urology Office/Clinic Note Urology Office/Clinic Note Chief Complaint Patient is here for follow up with KUB HPI Staff 1 year with KUB done 11/16/23. Dx: recurrent UTI and kidney stones Patient has been having recurrent UTI's. She does [email or web address] [email or web address] thru video zoom and gets abx without [...] UTI, # 20 cap(s), Refills(s) 2, Pharmacy: [facility]/pharmacy #[id number], 158, cm, 12/28/23 15:24:00 EDT, Height/Length Dosing, 87, kg, 12/28/23 15:24:00 EDT, Weight Dosing E&M of Est. Patient Moderate 30-39 Min 71958 2. Kidney stones (N20.0: Calculus of kidney) S/p R ESWL. KUB 06/29/22 at [facility] - negative Metabolic workup 07/08/22 - slightly elevated Na (149), low output volume (1000 mL) KUB 11/16/23 - negative no recent flank pain, gross hematuria, stone passage. continue stone prevention diet repeat imaging 1 yr Ordered: cephalexin, See Instructions, 1 cap po after intercourse to prevent UTI, # 20 cap(s), Refills(s) 2, Pharmacy: [facility]/pharmacy #[id number], 158, cm, 12/28/23 15:24:00 EDT, Height/Length Dosing, 87, kg, 12/28/23 15:24:00 EDT, Weight Dosing E&M of Est. Patient Moderate 30-39 Min 57327 Urnls Dip Stick Auto w/o Microscopy POC 71205 3. Smoker (F17.200: Nicotine dependence, unspecified, uncomplicated) cessation encouraged Ordered: cephalexin, See Instructions, 1 cap po after intercourse to prevent UTI, # 20 cap(s), Refills(s) 2, Pharmacy: [facility]/pharmacy #[id number], 158, cm, 12/28/23 15:24:00 EDT, Height/Length Dosing, 87, kg, 12/28/23 15:24:00 EDT, Weight Dosing E&M of Est. Patient Moderate 30-39 Min 07510 Follow-up With When Contact Information BHAVESH DEJESUS PA-C, URL Within 1 year Additional Instructions: Patient Education Kidney Stones, Apwz-pm-Fkyd Problem List/Past Medical History Ongoing Kidney stones [...] vaccine, inactiva (more content not included)... Normal [facility] Comment on above: Result Comment: Elec tronically Signed By: BHAVESH DEJESUS PA-C\.br\Date and Time Signed: 12/28/23 16:01 EDT CNOVon 12-19-2023 CNOV Office Visit (CARDMN ) ORION HARPER ([id number]) 1990 F Date Time Provider Department 12/19/23 2:45 PM SOLO MORA CARDMN During your visit today, we recorded the following information about you: Pulse Blood pressure Weight Height 94/minute 127/91 85.3 kg 1.575 m Solo Mora MD 12/28/2023 2:49 AM Signed [facility] Department of Cardiovascular Medicine SECTION OF CARDIAC PACING and ELECTROPHYSIOLOGY OUTPATIENT VISIT DATE December 19, 2023 OUTPATIENT VISIT TYPE NEW PRIMARY CARE PHYSICIAN: Giovani Hagen MD [address] [place] [address] CHIEF COMPLAINT: Syncope, cardiac evaluation for family [...] had any workup done including Stress Echo, monitor technician or 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 Reports symptoms of palpitations [...] No per (more content not included)... Normal [facility] ECG COMPLETEon 12-19-2023 ECG COMPLETE Ventricular Rate : 8 8 BPM Atrial Rate : 88 BPM P-R Interval : 148 ms QRS Duration : 78 ms Q-T Interval : 380 ms QTC Calculation(Bazett) : 459 ms Calculated P Madison : 62 degrees Calculated R Madison : 55 degrees Calculated T Madison : 38 degrees NORMAL SINUS RHYTHM NORMAL ECG Confirmed by MD BAH HEBA ([id number]) on 12/30/2023 6:45:12 PM NAME : ORION HARPER PID : [id number] : 1990 Gender : Female Race : Other ORD : [id number] Procedure Date : Dec 19 2023 13:51:58 Edit Date : Dec 30 2023 18:45:15 Diagnosis: NORMAL SINUS RHYTHM NORMAL ECG Confirmed by MD BAH HEBA ([id number]) on 12/30/2023 6:45:12 PM Test Reason : Location : [address] [place] [address] Overread By : MD BAH HEBA Edited By : MD BAH HEBA Referred By : , Acquired by : CHELSEY JOSEPH [facility] ALL CBC WITH AUTO DIFFon BASOPHILS ABSOLUTE AUTO 0.0 [facility] Basophils/100 WBC (Bld) 0.4 % 0.2 - 2.0 % [facility] Eosinophils/100 WBC (Bld) 2.8 % 0.9 - 7.0 % [facility] Erythrocyte distribution width (RBC) [Ratio] 12.4 % 11.0 - 15.0 % [facility] Hematocrit (Bld) [Volume fraction] 41.9 % 36.0 - 48.0 % [facility] Hemoglobin (Bld) [Mass/Vol] 14.2 g/dL 12.0 - 16.0 g/dL [facility] IMMATURE GRANULOCYTES ABS AUTO 0.03 [facility] Immature granulocytes/100 WBC (Bld) 0.4 % 0.0 - 0.5 % [facility] LYMPHOCYTES ABSOLUTE AUTO 2.8 [facility] Lymphocytes/100 WBC (Bld) 35.6 % 20.5 - 60.0 % [facility] MCH (RBC) [Entitic mass] 32.1 pg 26.7 - 34.0 pg [facility] MCHC (RBC) [Mass/Vol] 33.9 g/dL 29.9 - 35.2 g/dL [facility] MCV (RBC) [Entitic vol] 94.8 fL 81.0 - 99.0 fL [facility] MONOCYTES ABSOLUTE AUTO 0.5 [facility] Monocytes/100 WBC (Bld) 6.0 % 1.7 - 12.0 % [facility] NEUTROPHILS ABSOLUTE AUTO 4.3 [facility] Neutrophils/100 WBC (Bld) 54.8 % 43.0 - 75.0 % [facility] Platelet mean volume (Bld) [Entitic vol] 10.4 fL 9.5 - 13.5 fL [facility] TB EO # 0.2 [facility] TBH PLT [address] [facility] RBC 4.42 [facility] TB WBC 7.8 [facility] CNPNon 11-02-2023 CNPN Telephone (CARDMN) ORION HARPER ([id number]) 1990 F Date Time Provider Department 11/02/23 [...] Status:Closed by CRISS MCCRARY on 11/02/23 Normal [facility] Extra Lavender Tubeon 2022 Extra Lavender Tube Normal [facility] Comment on above: Performed By: #### X LAV, LIVP, LIP #### [facility] Lab [address] [place] [address] Production Crew Supervisor: Ronald Pearce MD Lipaseon 03-24-2023 Lipase [Catalytic activity/Vol] 260 U/L High 13-60 [facility] Comment on above: Performed By: #### X LAV, LIVP, LIP #### [facility] Lab [address] [place] [address] Production Crew Supervisor: Ronald Pearce MD Liver Profileon 03-24-2023 Albumin [Mass/Vol] 3.5 g/dL Normal 3.5-5.2 [facility] Comment on above: Performed By: #### X LAV, LIVP, LIP ####[facility] [address], [place] [phone] Director: Ronald Pearce MD Alkaline Phos 321 U/L High 35-104 [facility] Comment on above: Performed By: #### X LAV, LIVP, LIP ####[facility] [address] [place] [address] Lab Director: Ronald Pearce MD ALT [Catalytic activity/Vol] 137 U/L High 5-33 [facility] Comment on above: Performed By: #### X LAV, LIVP, LIP ####[facility] [address] [place] [address] Lab Director: Ronald Pearce MD AST [Catalytic activity/Vol] 60 U/L High <32 [facility] Comment on above: Performed By: #### X LAV, LIVP, LIP ####[facility] [address] [place] [phone] Director: Ronald Pearce MD Bilirubin [Mass/Vol] 1.0 mg/dL Normal 0.3-1.2 [facility] Comment on above: Performed By: #### X LAV, LIVP, LIP ####[facility] [address] [place] [phone] Director: Ronald Pearce MD Bilirubin, Indirect 0.4 mg/dL Normal 0.0-1.0 [facility] Comment on above: Performed By: #### X LAV, LIVP, LIP ####[facility] [address] [place] [address] Lab Director: Ronald Pearce MD Bilirubin.indirect [Mass/Vol] 0.6 mg/dL High <0.3 [facility] Comment on above: Performed By: #### X LAV, LIVP, LIP ####[facility] [address] [place] [address].[place] [phone] Director: Ronald Pearce MD Protein [Mass/Vol] 5.7 g/dL Low 6.4-8.3 [facility] Comment on above: Performed By: #### X LAV, LIVP, LIP ####[facility] [address] [facility] [place] [address] Lab Director: Ronald Pearce MD Extra Lavender Tubeon 2022 Extra Lavender Tube Normal [facility] Comment on above: Performed By: #### L IVP, XLAV ####[facility] [address] [facility] [place] [address] lab Director: Ronald Pearce MD FL CHOLANGIOGRAM [...] Danny Cole MD 03/23/23 Final result Normal [facility] Liver Profileon 03-23-2023 Albumin [Mass/Vol] 3.5 g/dL Normal 3.5-5.2 [facility] Comment on above: Performed By: #### L IVP, XLAV ####[facility] [address] [facility] [place] [address] Lab Director: Ronald Pearce MD Alkaline Phos 293 U/L High 35-104 [facility] Comment on above: Performed By: #### L IVP, XLAV ####[facility] [address] [facility] [place] [address] Lab Director: Ronald Pearce MD ALT [Catalytic activity/Vol] 111 U/L High 5-33 [facility] Comment on above: Performed By: #### L IVP, XLAV ####[facility] [address] [facility] [place] [address] lab Director: Ronald Pearce MD AST [Catalytic activity/Vol] 43 U/L High <32 [facility] Comment on above: Performed By: #### L IVP, XLAV ####[facility] [address], [place] [phone] Director: Ronald Pearce MD Bilirubin [Mass/Vol] 2.6 mg/dL High 0.3-1.2 [facility] Comment on above: Performed By: #### L IVP, XLAV ####[facility] [address], [place] [phone] Director: Ronald Pearce MD Bilirubin, Indirect 0.8 mg/dL Normal 0.0-1.0 [facility] Comment on above: Performed By: #### L IVP, XLAV ####[facility] [address], [place] [phone] Director: Ronald Pearce MD Bilirubin.indirect [Mass/Vol] 1.8 mg/dL High <0.3 [facility] Comment on above: Performed By: #### L IVP, XLAV ####[facility] [address], [place] [phone] Director: Ronald Pearce MD Protein [Mass/Vol] 5.7 g/dL Low 6.4-8.3 [facility] Comment on above: Performed By: #### L IVP, XLAV ####[facility] [address], [place] [phone] Director: Ronald Pearce MD Surgical Pathology Reporton 03-23-2023 Surgical Pathology Report (NOTE) Path Number: [id number] -- Diagnosis -- A. GALLBLADDER AND CONTENTS, [...] lesions or periductal lymph nodes are identified. Cop Examiner sections 1c. tm SM/tb1:03/24/2023 Microscopic Description Microscopic examination performed. Processing Lab: [address] [address] Interpretation Performed at [address] [phone] SURGICAL PATHOLOGY CONSULTATION Patient Name: ORION HARPER [facility] Rec: [id number] [facility] ANATOMIC PATHOLOGY [address] [place] [phone] Normal [facility] CBC with Diffon 03-22-2023 Abs. Basophil <0.03 Normal 0.00-0.20 [facility] Comment on above: Performed By: #### C DP, LIP, CMPX #### [facility] Lab [address] [place] [address] Production Crew Supervisor: Ronald Pearce MD #### TRIG #### [facility] LeC[address] [place] [address] Production Crew Supervisor: Elio Marley MD Abs.Imm.Granulocyte 0.03 k/uL Normal 0.00-0.30 [facility] Comment on above: Performed By: #### C DP, LIP, CMPX #### [facility] Lab [address] [place] [address] Production Crew Supervisor: Ronald Pearce MD #### TRIG #### [address] [address] Production Crew Supervisor: Elio Marley MD Abs.Neutrophil (Seg) 6.89 k/uL Normal 1.50-8.10 [facility] Comment on above: Performed By: #### C DP, LIP, CMPX #### [facility] Lab [address] [place] [address] Production Crew Supervisor: Ronald Pearce MD #### TRIG #### [address] [address] Production Crew Supervisor: Elio Marley MD Basophils/100 WBC (Bld) 0 % Normal 0-2 [facility] Comment on above: Performed By: #### C DP, LIP, CMPX #### [facility] Lab [address] [place] [address] Production Crew Supervisor: Ronald Pearce MD #### TRIG #### [address] [address] Production Crew Supervisor: Elio Marley MD Eosinophils (Bld) [#/Vol] 0.07 10*3/uL Normal 0.00-0.44 [facility] Comment on above: Performed By: #### C DP, LIP, CMPX #### [facility] Lab [address] [place] [address] Production Crew Supervisor: Ronald Pearce MD #### TRIG #### [address] [address] Production Crew Supervisor: Elio Marley MD Eosinophils/100 WBC (Bld) 1 % Normal 1-4 [facility] Comment on above: Performed By: #### C DP, LIP, CMPX #### [facility] Lab [address] [place] [address] Production Crew Supervisor: Ronald Pearce MD #### TRIG #### [address] [address] Production Crew Supervisor: Elio Marley MD Erythrocyte distribution width (RBC) [Ratio] 12.2 % Normal 11.8-14.4 [facility] Comment on above: Performed By: #### C DP, LIP, CMPX #### [facility] Lab [address] [place] [address] Production Crew Supervisor: Ronald Pearce MD #### TRIG #### [address] [address] Production Crew Supervisor: Elio Marley MD Hematocrit (Bld) [Volume fraction] 36.9 % Normal 36.3-47.1 [facility] Comment on above: Performed By: #### C DP, LIP, CMPX #### [facility] Lab [address] [place] [address] Production Crew Supervisor: Ronald Pearce MD #### TRIG #### [address] [address] Production Crew Supervisor: Elio Marley MD Hemoglobin (Bld) [Mass/Vol] 12.1 g/dL Normal 11.9-15.1 [facility] Comment on above: Performed By: #### C DP, LIP, CMPX #### [facility] Lab [address] [place] [address] Production Crew Supervisor: Ronald Pearce MD #### TRIG #### [address] [address] Production Crew Supervisor: Elio Marley MD Immature granulocytes/100 WBC (Bld) 0 % Normal 0 [facility] Comment on above: Performed By: #### C DP, LIP, CMPX #### [facility] Lab [address] [place] [phone] Production Crew Supervisor: Ronald Pearce MD #### TRIG #### [address] [address] Production Crew Supervisor: Elio Marley MD Lymphocytes (Bld) [#/Vol] 1.62 10*3/uL Normal 1.10-3.70 [facility] Comment on above: Performed By: #### C DP, LIP, CMPX #### [facility] Lab [address] [place] [address] Production Crew Supervisor: Ronald Pearce MD #### TRIG #### [address] [address] Production Crew Supervisor: Elio Marley MD Lymphocytes/100 WBC (Bld) 18 % Low 24-43 [facility] Comment on above: Performed By: #### C DP, LIP, CMPX #### [facility] Lab [address] [place] [address] Production Crew Supervisor: Ronald Pearce MD #### TRIG #### [address] [address] Production Crew Supervisor: Elio Marley MD MCH (RBC) [Entitic mass] 32.5 pg Normal 25.2-33.5 [facility] Comment on above: Performed By: #### C DP, LIP, CMPX #### [facility] Lab [address] [place] [address] Production Crew Supervisor: Ronald Pearce MD #### TRIG #### [address] [address] Production Crew Supervisor: Elio Marley MD MCHC (RBC) [Mass/Vol] 32.8 g/dL Normal 28.4-34.8 [facility] Comment on above: Performed By: #### C DP, LIP, CMPX #### [facility] Lab [address] [place] [address] Production Crew Supervisor: Ronald Pearce MD #### TRIG #### [address] [address] Production Crew Supervisor: Elio Marley MD MCV (RBC) [Entitic vol] 99.2 fL Normal 82.6-102.9 [facility] Comment on above: Performed By: #### C DP, LIP, CMPX #### [facility] Lab [address] [place] [address] Production Crew Supervisor: Ronald Pearce MD #### TRIG #### [address] [address] Production Crew Supervisor: Elio Marley MD Monocytes (Bld) [#/Vol] 0.57 10*3/uL Normal 0.10-1.20 [facility] Comment on above: Performed By: #### C DP, LIP, CMPX #### [facility] Lab [address] [place] [address] Production Crew Supervisor: Ronald Pearce MD #### TRIG #### [address] [address] Production Crew Supervisor: Elio Marley MD Monocytes/100 WBC (Bld) 6 % Normal 3-12 [facility] Comment on above: Performed By: #### C DP, LIP, CMPX #### [facility] Lab [address] [place] [address] Production Crew Supervisor: Rnoald Pearce MD #### TRIG #### [address] [address] Production Crew Supervisor: Elio Marley MD Neutrophil (Seg) 75 % High 36-[address] [facility] Comment on above: Performed By: #### C DP, LIP, CMPX #### [facility] Lab [address] [place] [address] Production Crew Supervisor: Roanld Pearce MD #### TRIG #### [address] [address] Production Crew Supervisor: Elio Marley MD NRBC Automated 0.0 per 100 WBC Normal 0.0 [facility] Comment on above: Performed By: #### C DP, LIP, CMPX #### [facility] Lab [address] [place] [address] Production Crew Supervisor: Ronald Pearce MD #### TRIG #### [address] [address] Production Crew Supervisor: Elio Marley MD Platelet mean volume (Bld) [Entitic vol] 10.7 fL Normal 8.1-13.5 [facility] Comment on above: Performed By: #### C DP, LIP, CMPX #### [facility] Lab [address] [place] [address] Production Crew Supervisor: Ronald Pearce MD #### TRIG #### [address] [address] Production Crew Supervisor: Elio Marley MD Platelets (Bld) [#/Vol] 188 10*3/uL Normal 138-453 [facility] Comment on above: Performed By: #### C DP, LIP, CMPX #### [facility] Lab [facility] [place] [address] Production Crew Supervisor: Ronald Pearce MD #### TRIG #### [address] [address] Production Crew Supervisor: Elio Marley MD RBC (Bld) [#/Vol] 3.72 10*6/uL Low 3.95-5.11 [facility] Comment on above: Performed By: #### C DP, LIP, CMPX #### [facility] Lab [address] [place] [address] Production Crew Supervisor: Ronald Pearce MD #### TRIG #### [address] [address] Production Crew Supervisor: Elio Marley MD WBC (Bld) [#/Vol] 9.2 10*3/uL Normal 3.5-11.3 [facility] Comment on above: Performed By: #### C DP, LIP, CMPX #### [facility] Lab [address] [place] [address] Production Crew Supervisor: Ronald Pearce MD #### TRIG #### [address] [address] Production Crew Supervisor: Elio Marley MD Comp Metabolic Pr/rfx MGon 1 05-22-2022 Albumin [Mass/Vol] 3.5 g/dL Normal 3.5-5.2 [facility] Comment on above: Performed By: #### C DP, LIP, CMPX #### [facility] Lab [address] [place] [address] Production Crew Supervisor: Ronald Perace MD #### TRIG #### [address] [address] Production Crew Supervisor: Elio Marley MD Alkaline Phos 157 U/L High 35-104 [facility] Comment on above: Performed By: #### C DP, LIP, CMPX #### [facility] Lab [address] [place] [address] Production Crew Supervisor: Ronald Pearce MD #### TRIG #### [address] [address] Production Crew Supervisor: Elio Marley MD ALT [Catalytic activity/Vol] 131 U/L High 5-33 [facility] Comment on above: Performed By: #### C DP, LIP, CMPX #### [facility] Lab [address] [place] [address] Production Crew Supervisor: Ronald Pearce MD #### TRIG #### [address] [address] Production Crew Supervisor: Elio Marley MD Anion gap [Moles/Vol] 11 mmol/L Normal 9-17 [facility] Comment on above: Performed By: #### C DP, LIP, CMPX #### [facility] Lab [address] [place] [address] Production Crew Supervisor: Ronald Pearce MD #### TRIG #### [address] [address] Production Crew Supervisor: Elio Marley MD AST [Catalytic activity/Vol] 34 U/L High <32 [facility] Comment on above: Performed By: #### C DP, LIP, CMPX #### [facility] Lab [address] [place] [address] Production Crew Supervisor: Ronald Pearce MD #### TRIG #### [address] [address] Production Crew Supervisor: Elio Marley MD Bilirubin [Mass/Vol] 1.9 mg/dL High 0.3-1.2 [facility] Comment on above: Performed By: #### C DP, LIP, CMPX #### [facility] Lab [address] [place] [address] Production Crew Supervisor: Ronald Pearce MD #### TRIG #### [address] [address] Production Crew Supervisor: Elio Marley MD BUN/CRE Ratio 17 Normal 9-20 [facility] Comment on above: Performed By: #### C DP, LIP, CMPX #### [facility] Lab [address] [place] [address] Production Crew Supervisor: Ronald Pearce MD #### TRIG #### [address] [address] Production Crew Supervisor: Elio Marley MD Calcium [Mass/Vol] 8.1 mg/dL Low 8.6-10.4 [facility] Comment on above: Performed By: #### C DP, LIP, CMPX #### [facility] Lab [address] [place] [address] Production Crew Supervisor: Ronald Pearce MD #### TRIG #### [address] [address] Production Crew Supervisor: Elio Marley MD Chloride [Moles/Vol] 105 mmol/L Normal 98-107 [facility] Comment on above: Performed By: #### C DP, LIP, CMPX #### [facility] Lab [address] [place] [address] Production Crew Supervisor: Ronald Pearce MD #### TRIG #### [address] [address] Production Crew Supervisor: Elio Marley MD CO2 [Moles/Vol] 21 mmol/L Normal 20-31 [facility] Comment on above: Performed By: #### C DP, LIP, CMPX #### [facility] [address] [place] [address] Production Crew Supervisor: Ronald Pearce MD #### TRIG #### [address] [address] Production Crew Supervisor: Elio Marley MD Creatinine [Mass/Vol] 0.6 mg/dL Normal 0.5-0.9 [facility] Comment on above: Performed By: #### C DP LIP, CMPX #### [facility] [place] [address] Production Crew Supervisor: Ronald Pearce MD #### TRIG #### [address] [address] Production Crew Supervisor: Elio Marley MD GFR/1.73 sq M.predicted among non-blacks MDRD (S/P/Bld) [Vol rate/Area] mL/min/{1.73_m2} Normal >60 [facility] Comment on above: Result Comment: [...] By: #### C ANIL GREWAL, CMPX #### [facility] [address] [place] [address] Production Crew Supervisor: Ronald Pearce MD #### TRIG #### [address] [address] Production Crew Supervisor: Elio Marley MD Glucose [Mass/Vol] 75 mg/dL Normal 70-99 [facility] Comment on above: Performed By: #### C DP LIP, CMPX #### [facility] [address] [place] [address] Production Crew Supervisor: Ronald Pearce MD #### TRIG #### [address] [address] Production Crew Supervisor: Elio Marley MD Potassium [Moles/Vol] 4.0 mmol/L Normal 3.7-5.3 [facility] Comment on above: Performed By: #### C DP, LIP, CMPX #### [facility] [place] [address] Production Crew Supervisor: Ronald Pearce MD #### TRIG #### [address] [address] Production Crew Supervisor: Elio Marley MD Protein [Mass/Vol] 5.7 g/dL Low 6.4-8.3 [facility] Comment on above: Performed By: #### C DP, LIP, CMPX #### [facility] [address] [place] [address] Production Crew Supervisor: Ronald Pearce MD #### TRIG #### [address] [address] Production Crew Supervisor: Elio Marley MD Sodium [Moles/Vol] 137 mmol/L Normal 135-144 [facility] Comment on above: Performed By: #### C DP, LIP, CMPX #### [facility] [address] [place] [address] Production Crew Supervisor: Ronald Pearce MD #### TRIG #### [address] [address] Production Crew Supervisor: Elio Marley MD Urea nitrogen [Mass/Vol] 10 mg/dL Normal 6-20 [facility] Comment on above: Performed By: #### C DP, LIP, CMPX #### [facility] [address] [place] [address] Production Crew Supervisor: Ronald Pearce MD #### TRIG #### [address] [address] Production Crew Supervisor: Elio Marley MD K (Potassium)on 03-22-2023 Potassium [Moles/Vol] 3.8 mmol/L Normal 3.7-5.3 [facility] Comment on above: Performed By: #### K #### [facility] [address] [place] [address] Production Crew Supervisor: Ronald Pearce MD Lipaseon 03-22-2023 Lipase [Catalytic activity/Vol] 198 U/L High 13-60 [facility] Comment on above: Performed By: #### C DP, LIP, CMPX #### [facility] [address] [place] [address] Production Crew Supervisor: Ronald Pearce MD #### TRIG #### [facility] [address] [place] [address] Production Crew Supervisor: Elio Marley MD MRI ABDOMEN WO CONTRAST [...] Daniel Hooker MD 03/22/23 Final result Normal [facility] Triglycerideson 03-22-2023 Triglyceride [Mass/Vol] 102 mg/dL Normal 0-149 [facility] Comment on above: Result Comment: Triglyceride Guidelines: <150 Desirable 150-199 Borderline 200-499 High >499 Very high Based on AHA Guidelines for fasting triglyceride, January 2012. Performed By: #### C DP, LIP, CMPX #### [facility] [address] [place], [place] [id number] Production Crew Supervisor: Ronald Pearce MD #### TRIG #### [facility] [address] [place], [place] [id number] Production Crew Supervisor: MD Lincoln Gordillo 03-20-[address] [facility] Telephone (FVPRAD) ORION HARPER ([id number]) 1990 F Date Time Provider Department 03/20/23 CHARLETTE CAMPUZANO FVRASHAAD During your visit today, we recorded the [...] Status:Closed by CHARLETTE CAMPUZANO on 03/20/23 Normal [facility] DENY Antinuclear Antibodieson 10-26-2022 Antinuclear Abs, IFA Negative Normal . [facility] Comment on above: Order Comment: Reaso n for Exam Elevated liver enzymes Result Comment: Nega tive <1:80 Borderline 1:80 Positive >1:80 ICAP nomenclature: AC-0 For more information about Hep-2 cell patterns use ANApatterns.org, the official website for the International Consensus on Antinuclear Antibody (DENY) Patterns (ICAP). Performed at: [address] [id number] Production Crew Supervisor: Demarcus Moreno PhD, Phone: [phone] Performed By: #### A NA, HEMOCHROM, IGG, MITOM2, ALPHA PHEN, HAABT, SMAB, CERULOP, L-K MICRO #### [facility] , #### [place]INO #### [address] Oeqob-9-Jfcycdxynel Phenotyp maki 10-26-2022 Alpha 1 Anti-Trypsin 121 mg/dL Normal 100-188 [facility] Comment on above: Order Comment: Reaso n for Exam Elevated liver enzymes Performed By: #### A NA, HEMOCHROM, IGG, MITOM2, ALPHA PHEN, HAABT, SMAB, CERULOP, L-K MICRO #### [facility] , #### [place] #### [address] Phenotype (P1) MM Normal . [facility] Comment on [...] Ranges used to confirm phenotype. Performed at: [address] [id number] Production Crew Supervisor: Demarcus Moreno PhD, Phone: [phone] Performed at: [address] [id number] Production Crew Supervisor: Yuli Callejas MD, Phone: [phone] Performed By: #### A NA, HEMOCHROM, IGG, MITOM2, ALPHA PHEN, HAABT, SMAB, CERULOP, L-K MICRO #### [facility] , #### CONST[place]INO #### [facility] [address] [place] [address] Ceruloplasminon 10-26-2022 Ceruloplasmin 27.2 mg/dL Normal 19.0-39.0 [facility] Comment on above: Order Comment: Reaso n for Exam Elevated liver enzymes Result Comment: Perf ormed at: [address] [id number] Production Crew Supervisor: Demarcus Moreno PhD, Phone: [phone] PERFORMED BY: [place] [address] PATHOLOGIST AMPHIBIAN CREWMEMBER ILIANA CAMP M.D. Performed By: #### A NA, HEMOCHROM, IGG, MITOM2, ALPHA PHEN, HAABT, SMAB, CERULOP, L-K MICRO #### [facility] , #### CONST[place]INO #### [facility] [address] [place] [address] Ferritinon 10-26-2022 Ferritin [Mass/Vol] 106.5 ng/mL Normal 11.0-306.8 [facility] Comment on above: Order Comment: pt is fasting Reason for Exam Elevated liver enzymes Result Comment: PERF ORMED BY: [place] [address] PATHOLOGIST AMPHIBIAN CREWMEMBER ILIANA CAMP M.D. Performed By: #### A NA, HEMOCHROM, IGG, MITOM2, ALPHA PHEN, HAABT, SMAB, CERULOP, L-K MICRO #### [facility] , #### CONST[place]INO #### [facility] [address] Ferritin [Mass/volume] in Se rum or PlasmaOrdered By: Erwin Hylton on 10-26-2022 Ferritin [Mass/Vol] 106.5 ng/mL 11.0-306.8 [facility] Hepatitis A Antibody Totalon 10-26-2022 Hepatitis A Antibody Total Negative Normal Negative [facility] Comment on above: Order Comment: Reaso n for Exam Elevated liver enzymes Result Comment: Perf ormed at: - [facility] [address] [id number] Production Crew Supervisor: Demarcus Moreno PhD, Phone: [phone] PERFORMED BY: [place] [address] PATHOLOGIST AMPHIBIAN CREWMEMBER ILIANA CAMP M.D. Performed By: #### A NA, HEMOCHROM, IGG, MITOM2, ALPHA PHEN, HAABT, SMAB, CERULOP, L-K MICRO #### [facility] , #### CONST[place]INO #### [facility] [address] Hereditary Hemochromatosis,D NAon 10-26-2022 Hereditary Hemochromatosis Normal . [facility] Comment on above: Order Comment: Reaso n for Exam Elevated liver enzymes Result Comment: Resu lt: c.845G>A (p.Yny107Ouj) - Not Detected c.187C>G (p.Uvq46Gsx) - Not Detected c.193A>T (p.Jzp55Nbg) - Not Detected Not associated with increased [...] for patients who are homozygous for c.845G>A (p.Dcq583Rxt) and have yet to experience clinical symptoms. Comments: The most common HFE variants associated with hereditary hemochromatosis are c.845G>A (p.Uye219Ctd), c.187C>G (p.Pyx78Lbb), c.193A>T (p.Een76Nsz). While patients homozygous for c.845G>A (p.Pjz992Uer) are the most likely to present clinical symptoms, less than 10% develop clinically significant iron overload with tissue and organ damage. Genetic counseling is recommended to discuss the potential clinical implications of positive results, as well as recommendations for testing family members. Genetic Coordinators are available for health care providers to discuss results at [phone] ([phone]). Test Details: Three variants analyzed: c.845G>A (p.Jdd331Unf), commonly referred to as C282Y c.187C>G (p.Wec62Cnv), commonly referred to as H63D c.193A>T (p.Trc42Kff), commonly referred to as S65C Methods/Limitations: DNA [...] developed and its performance characteristics determined by [employer]. It has not been cleared or approved by the Food and Drug Administration. References: Brodie BR, Yoav PC, Deborah KV, Raymond LW, Ramsey ; [employer] Association for the Study of Liver Diseases. Diagnosis and management of hemochromatosis: 2011 practice guideline by the [employer] Liver Diseases. Hepatology. 2010 Jomar;54(1):328-43. doi: 10.1002/hep.73496. PMID: 14448534; PMCID: WED2811473. Cora G, Olegario P, Fabio MCDONALD, Tabatha H, Love O, Zev S, Vazquez I, Kofi M, Sunitha S. [facility] best practice guidelines for the molecular genetic diagnosis of hereditary hemochromatosis (HH). Eur J Hum Margaret. 2016 Jul;24(4):479-95. doi: 10.1038/ejhg.2015.128. Epub 2014Oct 29. PMID: 75424586; PMCID: LYL9493118. Performed By: #### A NA, HEMOCHROM, IGG, MITOM2, ALPHA PHEN, HAABT, SMAB, CERULOP, L-K MICRO #### [facility] , #### [place] #### [address] Reviewed by: Dm Reyna, PhD Normal . [facility] Comment on above: Order Comment: Reaso n for Exam Elevated liver enzymes Result Comment: Perf ormed at: TG - [facility] [address] [place], [place] [id number] Production Crew Supervisor: Vivian Kelley formerly [facility], Phone: [phone] PERFORMED BY: [place] [address] PATHOLOGIST AMPHIBIAN CREWMEMBER ILIANA CAMP M.D. Performed By: #### A NA, HEMOCHROM, IGG, MITOM2, ALPHA PHEN, HAABT, SMAB, CERULOP, L-K MICRO #### [facility] , #### CONST[place]INO #### [facility] [address] [place] [address] Immunoglobulin Harvey 3 Immunoglobulin G 865 mg/dL Normal 586-1602 [facility] Comment on above: Order Comment: Reaso n for Exam Elevated liver enzymes Result Comment: Perf ormed at: CB - [facility] [address] [id number] Production Crew Supervisor: Demarcus Moreno PhD, Phone: [phone] Performed By: #### A NA, HEMOCHROM, IGG, MITOM2, ALPHA PHEN, HAABT, SMAB, CERULOP, L-K MICRO #### [facility] , #### [place] #### [place] [address] [place] Liver-Kidney Microsomal Abon 10-26-2022 Liver-Kidney Microsomal Ab <1.0 Normal 0.0-20.0 [facility] Comment on [...] MICRO #### [facility] , #### [place] #### [place] [address] [place] Mitochondrial (M2) Antibodyo n 10-26-2022 Mitochondrial (M2) Antibody <20.0 Normal 0.0-20.0 [facility] Comment on above: Order Comment: Reaso n for Exam Elevated liver enzymes Result Comment: Nega tive 0.0 - 20.0 Equivocal 20.1 - 24.9 Positive >24.9 Mitochondrial (M2) Antibodies are found in 90-96% of patients with primary biliary cirrhosis. Performed at: [address] [id number] Production Crew Supervisor: Demarcus Moreno PhD, Phone: [phone] Performed By: #### A NA, HEMOCHROM, IGG, MITOM2, ALPHA PHEN, HAABT, SMAB, CERULOP, L-K MICRO #### [facility] , #### [place] #### [place] [address] [place] Smooth Muscle Antibodyon Smooth Muscle Antibody [...] MICRO #### [facility] , #### CONSTANTINO #### [facility] [address] liveron 10-26-2022 [facility] [address] [place] [address] Ultrasound Report Signed Patient: Orion Harper MR#: [id number] : 1990 Acct:[id number] Age/Sex: 32 / F ADM Date: 10/26/22 [...] D.O.10/26/2022 3:24 PM Dictation Location: [place] [address] Tech: Francia Lopez Transcribed By: GRANT 10/26/22 1524 Dictated By: Alexandro Perdomo Jr, DO 10/26/22 152 Signed By: 10/26/22 1524 [facility] GASTRIC EMPTYING SOLIDon 09-12-2022 [facility] Stomach Views for gastric emptying solid phase W radionuclide Izabella 09-12-2022 IMPRESSION: EVIDENCE OF DELAYED RATE OF GASTRIC EMPTYING OF SOLID MEAL. ABNORMAL STUDY: 36-50% RETENTION AT 4 HOURS IS CONSISTENT WITH SEVERE GASTROPARESIS. Oliving Machine Operator: MINAL Transcribe Date/Time: Sep 12 2022 3:02P Dictated by : LUZ MARINA VÁZQUEZ MD This examination was interpreted and the report reviewed and electronically signed by: LUZ MARINA VÁZQUEZ MD on Sep 12 2022 3:05PM [facility] RADIOLOGY * * *Final Report* * * DATE OF EXAM: Sep 12 2022 2:44PM [facility] [address] [facility] GASTRIC EMPTYING SOLID / PROCEDURE REASON: Nausea [...] (rapid emptying is <30% retention at 1hr). [facility], [facility]22 * * *Final Report* * * DATE OF EXAM: Sep 12 2022 2:44PM [facility] 0017 - [place] GASTRIC EMPTYING SOLID / PROCEDURE REASON: Nausea [...] 4 HOURS IS CONSISTENT WITH SEVERE GASTROPARESIS. Oliving Machine Operator: PSCB Transcribe Date/Time: Sep 12 2022 3:02P Dictated by : LUZ MARINA VÁZQUEZ MD This examination was interpreted and the report reviewed and electronically signed by: LUZ MARINA VÁZQUEZ MD on Sep 12 2022 3:05PM EST [facility] Radiology Study observation (narrative) [facility] Stomach Views for gastric emptying solid phase W radionuclide POOrdered By: Ccf Provider on 09-12-2022 [facility] EGD Study observation Narrat napoleon 09-02-2022 [facility] Gastroenterology Gastrointestinal Endoscopy Patient Name: Orion Harper Procedure Date: 08/31/2022 2:51 PM Date of : 1990 Admit Type: Outpatient Age: 31 Room: [place] [address] Gender: Female Note Status: Block Paver Override Attending MD: Carol Winn MD Procedure: [...] verified by the physician, the nurse, the primer powder blender wet and the gem technician in the procedure room at 14:52 [...] the gastric (more content not included)... [employer]ATION [facility] SURGICAL PATHOLOGYOrdered By : Jameel Jasmine on 09-01-2022 Case Report Surgical Pathology Report Case: [id number] Authorizing Provider: Carol Winn MD Collected: 08/31/2022 03:04 PM Ordering Location: Ambulatory Surgery Received: 08/31/2022 09:20 PM Pathologist: Jameel Jasmine MD Specimens: A) - SMALL INTESTINE BIOPSY, r/o celiac B) - ANTRUM (STOMACH) BIOPSY, r/o hpylori C) - STOMACH BIOPSY, gastric body r/o hpylori [facility] Work Phone: Diagnosis Comment c6bexCHlUWAizOAxZKCc N ExhkpDwYCJmeRUiM9Wtgh bkDEodWI7kMC8tnPymxDO yfUYrXJVhQuQtx4nhr505 fXUvu0fuJHUMpuhowSe7v ZorO48cm7G0GwafY03soE AhANC0MLGpUVOrkFCaYCL rAFY3QXOcaCHrS4hjSHJq CW9oiszcTIjlEQndNJSgn HC9JUTjgNDoF3SwNPOpAJ bxJUIzlmr2VtMfKl9ccDF yeTcyMFxwYXJkXHBsYWlu SCHcKzWaEOgpwr9sO10bw VKkJMupsZwdPFDtx42nn9 kyq8WhsO04UQV5URTmaDk klVMyTRTwrVz9LKT3mNGa GGnlxBtrpFA6Z7y7BZhyj HJhZXBpdGhlbGlhbCBseW 4uxF9rlZKau5qoDrQCrRQ dGBTuaY4mbV9yuzGpuuAy wu74PVWukXkdMBq3QFJkH WNpZmljOyBkaWZmZXJlbn JiGCgrM15cx2bkHVLczYo ndiLul411qXArjQ4mkPLa ZSBsYXRlbnQgIGNlbGlhY yAreET3NEckKXPpoYG8hM DwonEuNGZpRXJtKo7vsRe rTQIZG9HKWGWcQV7iUZwh YrBozBvgwJBfY6HpcNXwN Z87XFFmkDnwQFcctiMreL RpbmcgSGVsaWNvYmFjdGV gNTM5eZ5ssUjtCY6ziclt o8YfSMDjMsThZ68gjkGwJ YIaSEsbbZzxd2Rua9pwP9 zmk9L3QOninx4zoOKqqZ= = [facility] Work Phone: FINAL DIAGNOSIS e0wucCIzJURxkMHqYWHb N BeuizMlBGCylAFoQ2Coey cgFXmzAD6yOM8hxSgwsHY pjLPvLFOxKpOqx2lvz161 kXVyu8cbHSIOljnbeXc7e IymP75fh3Y7MuoiT69ivK LlWIS8SWAnQCNkhDArUYO oXYS2EQHmlMBjE9wpHNCy ZA1matvkMAfzCYrgPHWfw BF5VXGgzASgQ0RcEZRiHM btZVBvzjb0FeBmKm1tvFO yeTcyMFxwYXJkXHBsYWlu IIToEqZkGV5aKFJcDHxbZ GludGVzdGluZSwgYmlvcH T6MihshP6uNR5WgPKinLH fonThi6DcflYoYZ70R49d ZSP8xOAyNP1srg0zvWM2f Aeqn9JlRFNrY3jxuGJofV LgTUFsxmAhj9huR6r5M0D hdGNoeSBpbmNyZWFzZSBp biBpbnRyYWVwaXRoZWxpY EpsvVqpuBgpV0p6JPMwyV edGRbqzT3mGFNuARXHiB6 fLNOwIOEurkMyuI3bFZKc h7OhyCvswEjjPLEdZTSby OFiTpHmhQWuEOS3lO9csK Isw0QiJ0uowDNmHABhru1 byIHbJRT8sKReQHxdd2Kt bWJro2zwjP2tPW0Dh3Wmc Qi5BWOkk7RoNTXecTAnHj EuhVUaLOM0zV7luVMdxox djpogjDMlq94lvj77zJyu GAStuJAqvmvuI1gcvZ6lD AexdkTeIo4fGDY5m91fX5 dzQKBrLCbsWPXtj7HfuLx cbGluZSAtSGVsaWNvYmFj hVCdLDT9gM9shVVcb7VqG 7iujCZiDWJrnl3nnQBjDN C6xBMuZDjgc5DitCUxy9x buR8jWU7Zo6SocWp2FGHa s8NdUPTycEPtJhIlpPAfC JI0rL1daIQpbghqnmbjdC Niy86vtu32cVrvAAMbqVR ivjydW4cpGFL0 [facility] Work Phone: Gross Description n0txfZQiMHTglKWLRDEh M HJeAV1dvTqpyOw4cGyqCS HfzxC9zATxASsgm8gcNMQ 2j3dibnKBGluiAVEjNTae FAHhlhmjZeY9OBhyIGLda lhvBVf4EHclVHTbmAK1ZE SzfLJmX3NbBNWhWJ4gguz 2MIU3RBcpWQZkZaO3JKSf PpEyBocpLKm1OUVpthR4F rw2ISGlEJDtvRGhk8V2GV pnxydqCPDumLBlR485QGt zo5ShsIMcMDniuKWqTTJW WvxkPwpypErlp4CphDUmU GlkIDUxMDAwIFxcbmggXF x9FBHxKZjbvSUnZE7roHk qExsznPhbi8GjoLMqMLqk VXAhNTSxBFuqTIOtZM8PT eOdZIYzIXV7IVthDhF8TM q1ZCNNRwFrTcZvTjKsANC rZsObDIa1ZAq6URpSTgJo IMKoDxHvWFQjKhT7DXcvS yBcXHQgMiBcXGYgQXJpYW owVPdpoKQqPC1gbTgyhVM pbiBBLiBTTUFMTCBJTlRF O0MMUfQxSvgXVVJOXTXgl iANClxlcGljTmVzdERvYz EgDQpcbHRycGFyXGxpbjB ccmluMCANClxsdHJjaFxm quBpJRXkH0ZqoqXiHRtzH ETqwf5eoTyoNMGvIRRlfP t9bWNmQECdgOBhFBPui6F xtIZcOCLxi8L8HHGmh4W2 GPIoN9kiAJpymXnnDqN7u yAxLjAgeCAwLjIgeCAwLj FkJ78nCOUzjKIpnRxgm4K goBk2wESdZFpwFI4gCESt RNCvADU5QD6ncWkpDLVCB lxlcGljTmVzdERvYzBcdj J3INFcbZOuQIJ9KV5rWBC pefmfRYLoMFLlSSM4PUkc tM22bFHpEXLoVEAhaQMfo VxwbGFpbiANCntcKlxlcG tlh2LsuBBpXJogNYGiGLB qYMtvCJImCU9XQfWeQLTe PBX5MBceSgB6DMm9HGKBW lMgIiAgMzExNDIyNzQiID e9FEm1AMjTLjMvFUImUzL nZMC5ILJ7XQphJvWdGSUu MiBcXGYgQXJpYWwgXFxmb TGxXP8yzPaypDMsylscsd R2DFSqCAvkDWYbEKVFFSS DHSNlZ7RFXGGFMLadRswN UFNZXHBhciANClxlcGljT mVzdERvYzEgDQpcbHRycG FyXGxpbjBccmluMCANClx hdOOhrNkobvLhCVIwR4Mz thCwXKdgRXCwtu9bdVkrP QHqMVQggKn9nEOzXZTezT CqRUGys4MgtSVmPSNdx4B 1CJDuq5G1AKBdX0hzGXyb uBckRfL6wxTsGlLjoJSrK vWsqALpUxAxI67dUVUliT KwlDkrg0LxjZn9zZDpZVj gPZ0iRYBjUAUzPBK2XT8z bGluZSANClxlcGljTmVzd IJhOqMckqT2LGDgkWThFT R9TT0zUXPrtupoDJApFJP oNFY1ZFznhN59tLOcMUIr MTZccGFyfVxwbGFpbiANC drnKuxgeLlcl4ZjkBAxQM lkIDUxMDAyIFxcZGIgIE9 VOyIsEPBtIMV8UTkfPgB6 WHl2OPIJAmYzHuMmPtSdF DChXcMwZJo2BQj0RQvIVm VdXUZrNxCbQGq5DaI7NCc yNyBcXHQgMiBcXGYgQXJp RCaiOPtwmCWaOS5reBenc GQcwpdtqeD1ZZCvHKmkCE LoYMKVA17QN7sjRdsXWXJ ZXHBhciANClxlcGljTmVz dERvYzEgDQpcbHRycGFyX GxpbjBccmluMCANClxsdH EdtWvtrhYyXNPzR5RtdeV mSAsrKLYqca8shHpaEXHc DRZbgYg2bUCsISYagWCnJ RRaw9EgyOAtTPDgo2J0AP Hsd1Y0LRAgY2raBMtfjXf cSoU7faTcNeelwRFxYaGa uNGkByUrM94iVSPjbTMyh Ymvi8HimDv9nCDuRZboQJ 1sVPAhLITtPSY0EX5zgYd tTCFdIHNuddMLNaoTSF7q eSAxMSwgMjAyMyAxOjQxI ONRFV8kzZNkNG2LIKGbhc GQTjlbx4NvWAC1TA8geyW 6uP5bTWErqxJyxl5qVKQk vVWYwBF5XIppakOtV4tth kjjHQM6EJArYNT2F8ewPY LCocTgCSUMqVN4SKygnbI oAE2LROM8GSn2PYMtqiKT ClxlcGljTmVzdERvYzBcd oI0LFAbsHHqVZI8KA2jEL NioxosCJXlKNOfKHA1LWg xoK15xZDdPQHlMQCnxQGu wMxacEIukpAWBuwggB9bL dLmb5mcpDf0RIGGXvmadW XcttwlybQ5RBTxa0llfCi gx8YlmQWjWM9lsZagkP9h ZnMxNiANCn0= [facility] Work Phone: Performing Lab j3ksoBOkQBZmqZUhMkZz M PDlSQOtg0hmIEFlsKCeXg EwMzNcZnRuYmpcdWMxXGR tYgKay4taz635oGPom8zy XWHpYtR6bJZoTSGedXZuE 498PZYlQHbdz6orh4YpOH ZdrWLvq1Q6OOMJjbeudNf 6hSvlN12lm9V8VpglE8zj JMIqMISgJ4XaEY6cDFRtZ lv1MXP5PUH2PRTpSTBmS2 TlWC9eICCvjSPvAUc5w5f wdVhdIQAcCGM1d4nqMJls wnCbOG7hfs7qvHa8e3eqq zEgRGVmYXVsdCBQYXJhZ3 MqeFhlZf3pxHj3jCnaGao vDDX4Ygm8PL0gvn99wqr1 rVskYBNehrtmYzO1RIwyC UBxkwaoPBw4ZQblRDLotX F6INWprTPnY9RoZEaaEV8 ppdo5OCO2GFhiVGYwCeR5 NDBcaGVhZGVyeTcyMFxmb 692CIF8MiGrHI9nD1Ugr8 Q3gR4cmBSpQQIsjKQtIcN mHUVddt8kdLDwGYsfj8Il WYE0leH3hUSrrNWzYPIpZ Q46Tgmpx5AkGpfat6CjS3 7irEU1SEnwo7ukZZ6uVvE 3ykKyQEsvq8altZ5uZmQ7 GBruPX6yXJ6nDXBvjE2cn mxjXHBnYnJkcmhlYWRccG lfwuJsRl3pvOnpATJ2QAf iX0lzfS6xLaY4COzjW7mp gZ0mKGd9SFrsvEF9CQQrz O0pMH1hvqlyw9hyPDquGB umONEmwyQ1hzXjAPJryOJ bJ4FchN1nPQQqQS5jqnyg x4yrTPI4MOcaJUYsZHR0F gDnJURql5Lplyo6KvTuw3 NiuFDpUCstK11sy439CJT vifSaT5mhbRQlrdimcAEl pwwhPPxzdaM0VQOlOBXnV WluXGYxXGZzMjJcbGFuZz EwMzNcaGljaFxmMVxkYmN qWLDkEVbpT1qaOiFlPwSt RyFKaZKjme1ddGutUHtsj TAakCGfsOA9xC7rJIGfyu Vgoe5jOAJlpONHtKT4FYa spkYhK3mvdkjbIUO3LROu AVG6I9ajPVOYvgWmZCIvU ULqjFGdFFHFZDN1GOZ6SQ DiLRZQGKNiWCT8AMT7RNK wOTRccGFyXHBhclxwYXJk XHBsYWluXGYwXGZzMjRcc BwmuL7cEyPyHjMtZwldEQ 3hOPImV4gvvEXiHIErAVK sD5tmKjBqjS3tvEkzJKhm ZjJcZnMyMlxsdHJjaCBMY ZNjbqI8p3Y5KQwqwCNjoz xmMVxmczIyXGxhbmcxMDM sCYzhR2deQuHmBDWrzCpz ODzdv3KsCDJdMTAsTsHuM YjdYOF9a1K1DPhbfOLesl SIXyVVEG6egOOljgmmYH1 ELlxwYXJ9 [facility] Work Phone: [facility] Work Phone: EGD Study observation Narrat iveon 08-31-2022 Radiology Study observation (narrative) [facility] CITRATE URINE 24HRon 023 Citric Acid, U, 24hr 472 mg/24 hr Normal 320-1240 Th [facility] Comment on above: Result Comment: This test was developed and its performance characteristics determined by [email or web address]. It has not been cleared or approved by the Food and Drug Administration. Performed By: #### A LPHPHN #### [facility] [address] [place] [address] Dr. Li Nagel Citric Acid, Urine 472 mg/L Normal Undefined [facility] Comment on above: Performed By: #### A LPHPHN #### [facility] [address] [address] [address] Li Nagel OXALATE 24HR URINEon 023 Oxalates, Urine 19 mg/L Normal Undefined [facility] Comment on above: Performed By: #### O X24HR #### [facility] [address] [place] [address] Dr. Li Nagel Oxalates, Urine 24hr 19 mg/24 hr Normal 4-31 [facility] Comment on above: Performed By: #### O X24HR #### [facility] [address] [address] [address] Li Nagel MAGNESIUM 24HR URINEon 07-09 Magnesium 24hr Urine 45.0 mg/24 hr Normal 12.0-293.0 T [facility] Comment on above: Performed By: #### I MMUN G #### [facility] [address] [place] [address] Dr. Li Nagel Magnesium UR 4.5 mg/dL Normal Not Estab. [facility] Comment on above: Performed By: #### I MMUN G #### [facility] [address] [address] [address] Li Nagel PHOSPHORUS 24HR URINEon 06-22 Phosphorus, Urine 51.4 mg/dL Normal Not Estab. [facility] Comment on above: Performed By: #### P HOS 24 #### [facility] [address] [place] [address] Dr. Li Nagel Phosphorus, Urine 24hr 514 mg/24 hr Normal 261-1078 [facility] Comment on above: Performed By: #### P HOS 24 #### [facility] [address] [place] [address] Dr. Li Nagel URIC ACID 24 HR URINEon 06-22 Uric Acid, Urine 64.0 mg/dL Normal Not Estab. [facility] Comment on above: Performed By: #### A LPHPHN #### [facility] [address] [place] [address] Dr. Li Nagel Uric Acid, Urine 24hr 640.0 mg/24 hr Normal 173.7-902. 1 [facility] Comment on above: Performed By: #### A LPHPHN #### [facility] [address] [place] [address] Dr. Li Nagel CALCIUM 24 HR URINEon 2022 CALC, 24 HR UR 155.0 mg/24 hr Normal 100.0-300.0 [facility] Comment on above: Performed By: #### I MMUN G #### [facility] [address] [place] [address] Dr. Li Nagel UR CALCIUM 15.5 mg/dL Normal 5.1-21.0 [facility] Comment on above: Performed By: #### I MMUN G #### [facility] [address] [place] [address] Dr. Li Nagel UR TOT VOL 1000 ml/24 HR Normal [facility] Comment on above: Performed By: #### I MMUN G #### [facility] [address] [place] [address] Dr. Li Nagel Performed By: #### A LPHPHN #### [facility] [address] [place] [address] Dr. Li Nagel CREA 24 HR URINEon 3 CREA, 24 HR UR 1891.80 mg/24 hr Critically high 800.00 -1,[address] [facility] Comment on above: Performed By: #### A LPHPHN #### [facility] [address] [address] [address] Li Nagel URINE CREAT 189.18 mg/dL Normal 20.00-300.00 [facility] Comment on above: Performed By: #### A LPHPHN #### [facility] [address] [address] [address] Li Nagel PTH INTACTon 07-08-2022 PTH, Intact 41 pg/mL Normal 15-65 [facility] Comment on above: Performed By: #### H EPACUT #### [facility] [address] [place] [address] Dr. Li Nagel SODIUM 24 HR URINEon 023 NA, 24 HR UR 149 mmol/24 hr Normal 40-220 [facility] Comment on above: Performed By: #### A LPHPHN #### [facility] [address] [address] [address] Li Nagel Sodium (U) [Moles/Vol] 149 mmol/L Critically high 30-90 [facility] Comment on above: Performed By: #### A LPHPHN #### [facility] [address] [address] [address] Li Nagel BUNon 07-06-2022 Urea nitrogen [Mass/Vol] 11.0 mg/dL Normal 7.0-18.0 [facility] Comment on above: Performed By: #### B UN, URIC, CA, K, NA, CL, CO2, CREA #### [facility] [address] [place] [address] Dr. Li Nagel CALCIUMon 07-06-2022 Calcium [Mass/Vol] 9.0 mg/dL Normal 8.5-10.1 [facility] Comment on above: Performed By: #### B UN, URIC, CA, K, NA, CL, CO2, CREA #### [facility] [address] [place] [address] Dr. Li Nagel CHLORIDEon 07-06-2022 Chloride [Moles/Vol] 107 mmol/L Normal 98-107 [facility] Comment on above: Performed By: #### I MMUN G #### [facility] [address] [place] [address] Dr. Li Nagel CO2on 07-06-2022 CO2 [Moles/Vol] 29.2 mmol/L Normal 21.0-32.0 [facility] Comment on above: Performed By: #### I MMUN G #### [facility] [address] [place] [address] Dr. Li Nagel CREATININEon 07-06-2022 Creatinine [Mass/Vol] 0.97 mg/dL Normal 0.55-1.02 [facility] Comment on above: Performed By: #### B UN, URIC, CA, K, NA, CL, CO2, CREA #### [facility] [address] [place] [address] Dr. Li Nagel EGFR-AF CITIZEN OF [place] >60 Normal >=60 [facility] Comment on above: Performed By: #### B UN, URIC, CA, K, NA, CL, CO2, CREA #### [facility] [address] [place] [address] Dr. Li Nagel EGFR-NON AF CITIZEN OF [place] >60 Normal >=60 [facility] Comment on above: Performed By: #### B UN, URIC, CA, K, NA, CL, CO2, CREA #### [facility] [address] [place] [address] Dr. Li Nagel NAon 07-06-2022 Sodium [Moles/Vol] 143 mmol/L Normal 136-145 [facility] Comment on above: Performed By: #### I MMUN G #### [facility] [address] [place] [address] Dr. Li Nagel POTASSIUMon 07-06-2022 Potassium [Moles/Vol] 3.6 mmol/L Normal 3.5-5.1 [facility] Comment on above: Performed By: #### I MMUN G #### [facility] [address] [place], [place] [address] Dr. Li Nagel URIC ACID SERUMon 07-06-2022 Urate [Mass/Vol] 4.7 mg/dL Normal 2.6-6.0 [facility] Comment on above: Performed By: #### B UN, URIC, CA, K, NA, CL, CO2, CREA #### [facility] [address] [place], [place] [address] Dr. Li Nagel SURGICAL PATHOLOGYOrdered By : Karan Nieto on 07-04-2022 Case Report Surgical Pathology Report Case: [id number] Authorizing Provider: Carol Winn MD Collected: 06/30/2022 11:43 AM Ordering Location: Ambulatory Surgery Received: 06/30/2022 10:42 PM Pathologist: Karan Nieto MD Specimens: A) - DUODENUM BIOPSY, r/o celiac B) - STOMACH BIOPSY, r/o H pylori [facility] Work Phone: Diagnosis Comment l3pxxTCtNALfjFImXJCv N CrgoeZyWQCppFIwS7Lavv rlFDyxZT3nPL6gtUmhjKJ vcHZlNZUsFzSpw4rvp745 iMWyy1ehDFBScckrhHn4l LnzL03bk2Z4XgqfW00njM EyXAP7CZFiZSZbtJZkXNG kOKC2MYLyxITcD2rcBOGc RX5creppQQlsQRfsMFQby ZW1ZAEvsGCbQ6LvRLJoUL kzGKKytbi2MsDyWu2lvYT yeTcyMFxwYXJkXHBsYWlu DPZgZlPoCQ5qHS3tbhGzk 2VkIGludHJhZXBpdGhlbG hykAKyjN4hxK4sqAAxojy byR3rkMknJXTxo0MiV6Id z0KdbnasaB54cxIiGs2wu i0lfAj8rXDwXANaSEoyNi Blb4XeoiCeeiZhm5ByK5d npMggkmJ2iQImBWChkOko YyBkaXNlYXNlIGFuZCBvd JxvmsExp62xjKBfr53tQJ V6U6svIMBkhMNduKhtCQG fl8Kdm3TqPJfqSsTuxLmv bkWcwT1izCHukX8uNAjav Yznz9AqL9JcszDsiMlyth mqvB6rPKA8mP5nQParTZ1 kIHNvbWUgbWVkaWNhdGlv tkWfKXBfjL8gL6TeVHIdj xZeoSM0jK8bOJdtbYvoEZ Fzsz7rjdceuSUzm8Wlz8v fP2vvLMG9dVByGBFocEXg SuEdN17jl3irYGSaYZFmC nCziPxwkWJidPy8SAnuMT bmFJErVZ9tvPYptH== [facility] Work Phone: FINAL DIAGNOSIS r6ihzUDdMVIhbFWqIQBl N EvgltEpHVQepZYpC6Sdyi miVOnrSL7tEJ9ggOqeiGV acJBkSEYcNnQbi2bla238 dEWnq5imHATHplkjxUl7g UzmP25fs3R5RhcnD28shL FfCWZ5RIKfABYanIBtSKU bOBY8LGQxhQMrG9bdKZGf DI4wwfuuKCtnZStnRSPyd EB1VWKfnCEyD0QtDOKvLS uvCPMzaww4JxVcXg2cmXQ yeTcyMFxwYXJkXHBsYWlu BIDaMiAqZE5pDSCdTEZya Y1vVEEme4YxaSepfSGgEU 7hL92hdPhhcG39YYP3kC5 rvLBudVRui0Ewa2u1oRZi p3RuFDzeggtlfD29waLyk wNqeKEgE1P2qmUtPL4qKR buF7ZoPZPiCKSqrmNfNNR waXRoZWxpYWwgbHltcGhv E9t6JEG7XIMeAVFar32tX E80MqkrXFHrdWLgTMPnNX E8a08tJ9fqPURbj8FftJy jyTAmGO8yQ9EenIFiBoJk mYmigEuuWQ36F98mINN4c TZiYBLire7qmNUiEOA8lR KjPPtmeQwjv0PpS0DlsyA xnKyjmjjrXQUwd0GuWHLr DOTqUJU8odc6xUVkUZXzq n0= [facility] Work Phone: Gross Description w3nddYXcJAKthBHOXLRg M WTeOR9daTfbnAp3jYmsHW QgwmP9rXLkBCvgp8ieILT 4l5bklzDZHsbzBNRiQMwo LGBajogrWiR2QHirVIHyd qjqLUe8QCkmJQEkrTF8FS GefTPlO5IxQKLcML5ofej 1UAC8OAutPNPeWvR3YRBg RsNwBahxSPa7CSWfzkA7C qz0CXVyDZBqjQLvv5D4CT raxpdnKMGbtOKqT830RYk oy7DirGFxWDrvfLQbURBV AadlOujurBshq1GgdOLpP GlkIDUxMDAwIFxcbmggXF m1QYLjTVdfsKGlEN1raHz iPdkgbWxtp0OlrOUiRQbe TDLmHIBsXOysKZHgJG3BN pNoIPQ7Jvx7Ome2VrQ1WK v3XQVMLqNwKvBtVwoeLIY 4UTWrKUw7RDb8IEqPAgF9 ANMdEUamIYNxEPY1FUq4F FxcdCAyIFxcZiBBcmlhbC CbOZPeIFtsnbD5HTDrZPv aTPNsEHPDV1JXUwEUKKWN N3ALMKuuHOTeQYkgQROoR 95hn3PSb3XlIO9BUWz5nl BhhknbgN7bCLQpcyZfZUx drMRbR5dnFeCiLSFBLZAl tSEnFOFbemYmb6UxCGvye iBhcmUgbXVsdGlwbGUgcG qwB2YwFZ4tXWCosndaz45 frBL3aJQvwPNjJErlzvEe BOVwrfgsbO4bZA30WMxtE I7gZIirVH9sGJSzLvMVq7 SwkHb2JAC7Ns0dtZKxPMR hinCbwiVoR2Bps7T3uOVy ZVibZDFzH17ws0AUa1HvA RJub9eqiDpdp8EnzVEiZN feEELvxBLfMDfqdC3xJnC ps6cehQu0ZKafjeF8VNBl bm8qkZzpkY3hAXr1CVvzL DMgV2IuS9ExSNunPVF1PP AwMiBcXGRiICBPVlIgIiA bJeC7ICT1RPGdMZu3LXbg F7ODYSThJYV2CDu2RGl4T qR7SHw4BOVSQz4uYVdqNi w6FVDfEOC2BQd3QHHoPKJ gMiBcXGYgQXJpYWwgXFxm oJYtXD6yvTvnjVYzwciok vT3PDVcXGaoKQJlYFMUJ9 5TM2fvSkxXTXWOLLLvfiP NClxlcGljTmVzdERvYzEg DQpcbHRycGFyXGxpbjBcc mluMCANClxsdHJjaFxmcz ZkZBBiS9SgmwNtNMlkYQQ kzs8duQymLQUxXCY0a97w tYaaJ2DqJT5tUZFkkshwe 99ubHV6fGAgfGUfQKwkjt FmPPLebsozhU6uIZ3yVEy iGA5yQFthLI7mPEXoFbVY f4LweHt0FVA7Vb2pkJBlD MPditTsidWsP0Yaq9Z1nD UuIFxwYXIgDQpccGFyIA0 AZ8Zog0KxDYrkgMvwJOQw a65ecODtRq1phGDaQHE3A ENsZXZlbGFuZCBDbGluaW HyWPa2KHZvUPNfhOhlLTP 6PQ3pJGGxAYJyuDBzUGsm H1qdGEXnZULwiQFpED6SZ HBhciANCkpUIDAzLzEwLz LaTrYhQSs0AjZOYMtpQDR jXFrlDIGjN41go6TYm1Kd PRYbh7aktQbap6TeoCYwL HfhUBYatKMoUZxppA1fCl Emo0edpKg4ZQjeoqE9YPA wnj0fxBshzE4dZOpro6ux GMC3XJTzoDYayBPfXJsuv BysqN3eByYyImw0RRgyYR SdC8DbX7ViffX2BLGzSCw uXGZzMTYgDQp9 [facility] Work Phone: Performing Lab h2qvrCYrOSHjfGWaPvMz M DOgIELje0bwWFDxkYRzWf EwMzNcZnRuYmpcdWMxXGR gMvVfa0ekm547uUWhd4br IREzDzG9jHAbWCQusHJgB 450RWWeIAivv2twd3RiHE BywNQjt1V9TWWKbifheNa 5hOjhG21ef9L9ShrzQ9gz MCNtLFJzF0BnCV3aSDGsW je1XUW7UGJ3JJWgSLJmD4 YcQH6fLEUqqMYsEMi2n5n kyJplPTToYIP7k1ceDFwh mdDtBT8huv5hoBm6y1sdw zEgRGVmYXVsdCBQYXJhZ3 HbpSgqHu0mlOs7iYppGjp xJYJ4Ydq4RX1uri22cty2 gDxuOKFohvyvAyH0SUxzJ EEinpekVXq8RIaiLAEhpA H0LBWzwDGaN6KvTLihZC6 zimw0IQB1EMkfQDCkMlW9 NDBcaGVhZGVyeTcyMFxmb 484CLS5XiNtGK7cL3Ycl8 L2cR7qjJRdDTPcnKSdEdG zYBJrws1zyYEgHHkod7Uu SHN5xzV0iUHjlRFsERVmT P43Ugggm9KaAcajb0YyR4 3rlHN5EJhzi9vpID1nFcZ 2cuPxRUzya5nutU5jJmY3 YMwqZL8jJN7mJJDloD8tm mxjXHBnYnJkcmhlYWRccG rbuvGbBn9dwGajTQP1OPs gL8loxF5jMlN2TNgrM6wh cA6nBEb4FNvndDL5XAUsz V0lJQ8kkftzt1msQJsuSX yvUNBloyC0gkTySDYtkBG kG6SgeW9xHNHwGB3ofwrj l9mxJYB3HZshDIFiKQC6W kVoLTPfd8Invjt2InKtb9 FbzQThJZtpA69se945NPC rziUjI9epxMQwpyvfiYAg efbiGVthdpF5IYYbMMEhH WluXGYxXGZzMjJcbGFuZz EwMzNcaGljaFxmMVxkYmN aHABaFLhvB3uyMqSsFcAr LaUGbFTqdd0mbVtaMZvjf XMqlJQngBQ7qK5wBZTmst Mfva1mQIMebLVXpCT6CXo fgdXqA1wdnlizGUF4LSBk LWJ1Z7yxCRNPvdLkZUGrA XQcdWIrOGPYBIV9QPN8OX SpGMSURZEqYFQ4BCQ4CGY wOTRccGFyXHBhclxwYXJk XHBsYWluXGYwXGZzMjRcc SsjtF3pDqLtDiMyKkqhCG 7uDCJeC7ssrBTgYGWtXTJ vH8ynUiKugH9wjMgbFEwn ZjJcZnMyMlxsdHJjaCBMY OYamzD1l3N7HUxxtNRdcu xmMVxmczIyXGxhbmcxMDM fSAtjL0ggOqEkCXSkmSvs FGguq0GhYYGjVGQkFaZsN ZnhNSF4j1K1ZNvqzKGrpw MTWeTTBX6tcZXlathlNR1 ELlxwYXJ9 [facility] Work Phone: [facility] Work Phone: EGD Study observation Narrat napoleon 06-30-2022 [facility] Gastroenterology Gastrointestinal Endoscopy Patient Name: Orion Harper Procedure Date: 06/30/2022 11:41 AM Date of : 1990 Admit Type: Outpatient Age: 31 Room: [place] [address] Gender: Female Note Status: Finalized Attending MD: [...] verified by the physician, the nurse, the primer powder blender wet and the gem technician in the procedure room at 11:35 [...] gastric ulcers (more content not included)... PROVATION [facility] Radiology Study observation (narrative) [facility] XR KUB 1 VIEWon 06-30-2022 XR [...] JACKSON ADKINS Date: 2022-06-30 07:02 Normal [facility] US ABD RT UPPER QUADRANTon 0 06-15-[address] [facility] [address] ABD/PEL WO IVCONon 2022 Radiology Result ACTIONABLE Abnormal Kely roth [facility] No Panel Informationon 05-27 [facility] PULMT-0-EUTZNKCEYBK PHENOTYP INGon 05-11-2022 Jngqh-9-Emyzlecxgav, Serum 130 mg/dL Normal 100-188 [facility] Comment on above: Result Comment: Perf ormed at: CB Performed By: #### A LPHN #### [facility] [address] [place] [address] Dr. Li Nagel Phenotype (PI) MM Normal [facility] Comment on above: Result Comment: Phen [...] Performed at: BN Performed By: #### [facility] #### [facility] [address] [place] [address] Dr. Li Nagel HEREDITARY HEMOCHROMATOSIS, DNA ANALYSISon 05-11-2022 Hereditary Hem[address] Comment Normal [facility] Comment on above: Result Comment: Resu lt: c.845G>A (p.Bse869Spp) - Not Detected c.187C>G (p.Zoz49Jwy) - Not Detected c.193A>T (p.Zhv35Igw) - Not Detected Not associated with increased [...] for patients who are homozygous for c.845G>A (p.Qnt385Eie) and have yet to experience clinical symptoms. . Comments: The most common HFE variants associated with hereditary hemochromatosis are c.845G>A (p.Usp460Adh), c.187C>G (p.Bhd07Exy), c.193A>T (p.Tac81Kno). While patients homozygous for c.845G>A (p.Ike461Heq) are the most likely to present clinical symptoms, less than 10% develop clinically significant iron overload with tissue and organ damage. . Genetic counseling is recommended to discuss the potential clinical implications of positive results, as well as recommendations for testing family members. Genetic Coordinators are available for health care providers to discuss results at [phone]). . Test Details: Three variants analyzed: c.845G>A (p.Oqz698Qlk), commonly referred to as C282Y c.187C>G (p.Hsy58Mzw), commonly referred to as H63D c.193A>T (p.Mdd51Bdn), commonly referred to as S65C . Methods/Limitations: [...] developed and its performance characteristics determined by [employer]. It has not been cleared or approved by the Food and Drug Administration. . References: Brodie BR, Yoav PC, Deborah KV, Raymond LW, Ramsey ; [employer] Liver [employer]. Diagnosis and management of hemochromatosis: 2011 practice guideline by the [employer] Liver [employer]. Hepatology. 2011 Oct;54(1):328-43. doi: 10.1002/hep.16719. PMID: 19006271; PMCID: MZA1872331. Cora G, Olegario P, Fabio DW, Tabatha H, Love O, Zev S, Vazquez I, Kofi M, Sunitha S. [facility] best practice guidelines for the molecular genetic diagnosis of hereditary hemochromatosis (HH). Eur J Hum [place]. 2016 Jul;24(4):479-95. doi: 10.1038/ejhg.2015.128. Epub 2014Oct 29. PMID: 48379228; PMCID: VTJ6244965. . Anitra Hager, PhD, FACMG Dm Reyna, PhD Alexandro Rodriguez, PhD, FACMG Jhony Hammond, PhD, FACMG Oumar Avila, PhD, FAC Rob Brand, PhD, FAC Pascale Gracia, PhD, FAC Lala Marvin, PhD, FAC Performed By: #### H EPACUT #### [facility] [address] [place] [address] Dr. Li Nagel DENY by IFAon 05-06-2022 Antinuclear Antibodies, IFA Negative Normal [facility] Comment on above: Result Comment: Nega tive <1:80 Borderline 1:80 Positive >1:80 ICAP nomenclature: AC-0 For more information about Hep-2 cell patterns use ANApatterns.org, the official website for the International Consensus on Antinuclear Antibody (DENY) Patterns (ICAP). Performed By: #### A LPHPHN #### [facility] [address] [address] [address] Li Nagel CERULOPLASMINon 05-05-2022 Ceruloplasmin 27.9 mg/dL Normal 19.0-39.0 [facility] Comment on above: Performed By: #### H EPACUT #### [facility] [address] [address] [address] Li Nagel HEPATITIS A AB IGMon 023 Hep A Ab, IgM Negative Normal Negative [facility] Comment on above: Performed By: #### I MMUN G #### [facility] [address] [address] [address] Li Nagel IMMUNOGLOBULIN G INDEX SERUM OR CSFon 05-05-2022 Albumin [Mass/Vol] 4.8 g/dL Normal 3.8-4.[address] [facility] Comment on above: Performed By: #### I MMUN G #### [facility] [address] [address] [address] Li Nagel Albumin, CSF NSPINL Normal [facility] Comment on above: Result Comment: Test not performed. No spinal fluid received. contacted Radha at your facility on 05-05-2022 Performed By: #### I MMUN G #### [facility] [address] [address] [address] Li Nagel CSF IgG Index UPTCAL Normal [facility] Comment on above: Result Comment: Unab le to calculate result since non-numeric result obtained for component test. Performed By: #### I MMUN G #### [facility] [address] [address] [address] Li Nagel IgG, Quant, CSF NSPINL Normal [facility] Comment on above: Result Comment: Test not performed. No spinal fluid received. contacted Radha at your facility on 05-05-2022 Performed By: #### I MMUN G #### [facility] [address] [address] [address] Li Nagel IgG/Alb Ratio, CSF UPTCAL Normal [facility] Comment on above: Result Comment: Unab le to calculate result since non-numeric result obtained for component test. Performed By: #### I MMUN G #### [facility] [address] [address] [address] Li Nagel Immunoglobulin G, Qn, Serum 971 mg/dL Normal 586-1602 [facility] Comment on above: Performed By: #### I MMUN G #### [facility] [address] [place] [address] Dr. Li Nagel LIVER-KIDNEY MICROSOMAL (LKM ) ABon 05-05-2022 Liver-Kidney Microsomal Ab 1.3 Units Normal 0.0-20.0 [facility] Comment on above: Result Comment: Nega tive 0.0 - 20.0 Equivocal 20.1 - 24.9 Positive >24.9 . LKM type 1 antibodies are detected in patients with autoimmune hepatitis type 2 and in up to 8% of patients with chronic HCV infection. Performed By: #### H EPACUT #### [facility] [address] [place] [address] Dr. Li Nagel MITICHONDRIAL (M2) ANTIBODYo n 05-05-2022 Mitochondrial (M2) Antibody <20.0 Normal 0.0-20.0 [facility] Comment on above: Result Comment: Nega tive 0.0 - 20.0 Equivocal 20.1 - 24.9 Positive >24.9 . Mitochondrial (M2) Antibodies are found in 90-96% of patients with primary biliary cirrhosis. Performed By: #### A LPHPHN #### [facility] [address] [place] [address] Dr. Li Nagel SMOOTH MUSCLE ANTIBODYon Actin (Smooth Muscle) Antibody 9 Units Normal 0-19 [facility] Comment on above: Result Comment: Nega tive 0 - 19 Weak positive 20 - 30 Moderate to strong positive >30 . Actin Antibodies are found in 52-85% of patients with autoimmune hepatitis or chronic active hepatitis and in 22% of patients with primary biliary cirrhosis. Performed By: #### A LPHPHN #### [facility] [address] [place] [address] Dr. Li Nagel FERRITINon 05-03-2022 Ferritin [Mass/Vol] 319.0 ng/mL Critically high 6.2-137.0 [facility] Comment on above: Performed By: #### A LPHPHN #### [facility] [address] [place] [address] Dr. Li Nagel PAP ACOG PANEL 2: 30 to 65on 04-28-[address] [facility] Comment on above: Result Comment: Perf ormed at: BA Performed By: #### I MMUN G #### [facility] [address] [place] [address] Dr. Li Nagel Age Gdln ACOG Testing 30-[address] [facility] Comment on above: Performed By: #### I MMUN G #### [facility] [address] [address] [address] Li Nagel DIAGNOSIS: Comment Normal [facility] Comment on above: Result Comment: NEGA TIVE FOR INTRAEPITHELIAL LESION OR MALIGNANCY. Performed at: BA Performed By: #### I MMUN G #### [facility] [address] [place] [address] Dr. Li Nagel HPV Aptima Negative Normal Negative [facility] Comment on above: Result Comment: This nucleic acid amplification test detects fourteen high-risk HPV types (16,18,31,33,35,39,45,51,52,56,58,59,66,68) without differentiation. Performed at: =G Performed By: #### I MMUN G #### [facility] [address] [place] [address] Dr. Li Naegl HPV Genotype Reflex Comment Normal [facility] Comment on above: Result Comment: Crit eria not met, HPV Genotype not performed. Performed at: BA Performed By: #### I MMUN G #### [facility] [address] [place] [address] Dr. Li Nagel Methodology: Comment Normal [facility] Comment on above: Result Comment: This liquid based ThinPrep(R) pap test was screened with the use of an image guided system. Performed at: WB Performed By: #### I MMUN G #### [facility] [address] [place] [address] Dr. Li Nagel Note: Comment Normal [facility] Comment on above: Result Comment: The [...] Performed By: #### I MMUN G #### [facility] [address] [address] [address] Li Nagel Performed by: Comment Normal [facility] Comment on above: Result Comment: Gretta Holly, Machine Gunner (ASCP) Performed at: BA Performed By: #### I MMUN G #### [facility] [address] [address] [address] Li Nagel Specimen adequacy: Comment Normal [facility] Comment on above: Result Comment: Sati sfactory for evaluation. No endocervical component is identified. Performed at: BA Performed By: #### I MMUN G #### [facility] [address] [place] [address] Dr. Li Nagel HEPATITIS PANEL, [facility] HBsAg Screen Negative Normal Negative [facility] Comment on above: Performed By: #### H EPACUT #### [facility] [address] [place] [address] Dr. Li Nagel HCV AB <0.1 Normal 0.0-0.9 [facility] Comment on above: Performed By: #### H EPACUT #### [facility] [address] [place] [address] Dr. Li Nagel Hep A Ab, IgM Negative Normal Negative [facility] Comment on above: Performed By: #### H EPACUT #### [facility] [address] [address] [address] Li Nagel Hep B Core Ab, IgM Negative Normal Negative [facility] Comment on above: Performed By: #### H EPACUT #### [facility] [address] [place] [address] Dr. Li Nagel Interpretation: Comment Normal [facility] Comment on above: Result Comment: Nega tive Not infected with HCV, unless recent infection is suspected or other evidence exists to indicate HCV infection. Performed By: #### H EPACUT #### [facility] [address] [address] [address] Li Nagel US PELVIS AND TRANSVAGon [...] LAURIE CRUZ Date: 2021-12-22 09:50 Normal [facility] US ABD RT UPPER QUADRANTon 0 12-10-2021 [facility] US PELVIS AND TRANSVAGon US PELVIS [...] LAURIE CRUZ Date: 2021-10-28 13:01 Normal [facility] VAGINITIS/VAGINOSIS DNA PROB Maki 10-21-2021 Sarah species Negative Normal Negative [facility] Comment on above: Performed By: #### I MMUN G #### [facility] [address] [place] [address] Dr. Li Nagel Gardnerella vaginalis Negative Normal Negative [facility] Comment on above: Performed By: #### I MMUN G #### [facility] [address] [place] [address] Dr. Li Nagel Trichomonas vaginalis Negative Normal Negative [facility] Comment on above: Performed By: #### I MMUN G #### [facility] [address] [place] [address] Dr. Li Nagel CBC AUTO DIFFon 10-20-2021 BASO # 0.0 103/ul Normal 0.0-0.1 [facility] Comment on above: Performed By: #### A LPHPHN #### [facility] [address] [place] [address] Dr. Li Nagel Basophils/100 WBC (Bld) 0.4 % Normal 0.2-2.0 [facility] Comment on above: Performed By: #### A LPHPHN #### [facility] [address] [place] [address] Dr. Li Nagel EO # 0.2 103/ul Normal 0.0-0.7 [facility] Comment on above: Performed By: #### A LPHPHN #### [facility] [address] [place] [address] Dr. Li Nagel Eosinophils/100 WBC (Bld) 2.6 % Normal 0.9-7.0 [facility] Comment on above: Performed By: #### A LPHPHN #### [facility] [address] [place] [address] Dr. Li Nagel Erythrocyte distribution width (RBC) [Ratio] 12.6 % Normal 11.0-15.0 [facility] Comment on above: Performed By: #### A LPHPHN #### [facility] [address] [address] [address] Li Nagel Hematocrit (Bld) [Volume fraction] 40.0 % Normal 36.0-48.0 [facility] Comment on above: Performed By: #### A LPHPHN #### [facility] [address] [place] [address] Dr. Li Nagel Hemoglobin (Bld) [Mass/Vol] 13.3 g/dL Normal 12.0-16.0 [facility] Comment on above: Performed By: #### A LPHPHN #### [facility] [address] [place] [address] Dr. Li Nagel IG # 0.06 10e3/ul Critically high 0.00-0.03 [facility] Comment on above: Performed By: #### A LPHPHN #### [facility] [address] [place] [address] Dr. Li Nagel IG % 0.9 % Critically high 0.0-0.5 [facility] Comment on above: Performed By: #### A LPHPHN #### [facility] [address] [place] [address] Dr. Li Nagel LYMPH # 2.2 103/ul Normal 1.2-3.8 [facility] Comment on above: Performed By: #### A LPHPHN #### [facility] [address] [place] [address] Dr. Li Nagel Lymphocytes/100 WBC (Bld) 31.0 % Normal 20.5-60.0 [facility] Comment on above: Performed By: #### A LPHPHN #### [facility] [address] [place] [address] Dr. Li Nagel MANUAL DIFF REQ NO Normal [facility] Comment on above: Performed By: #### A LPHPHN #### [facility] [address] [place] [address] Dr. Li Nagel MCH (RBC) [Entitic mass] 31.4 pg Normal 26.7-34.0 [facility] Comment on above: Performed By: #### A LPHPHN #### [facility] [address] [address] [address] Li Nagel MCHC (RBC) [Mass/Vol] 33.3 g/dL Normal 29.9-35.2 [facility] Comment on above: Performed By: #### A LPHPHN #### [facility] [address] [place] [address] Dr. Li Nagel MCV (RBC) [Entitic vol] 94.3 fL Normal 81.0-99.0 [facility] Comment on above: Performed By: #### A LPHPHN #### [facility] [address] [place] [address] Dr. Li Nagel MONO # 0.5 103/ul Normal 0.3-0.8 [facility] [facility] Comment on above: Performed By: #### A LPHPHN #### [facility] [address] [place] [address] Dr. Li Nagel Monocytes/100 WBC (Bld) 6.9 % Normal 1.7-12.0 [facility] Comment on above: Performed By: #### A LPHPHN #### [facility] [address] [place] [address] Dr. Li Nagel NEUT # 4.1 103/ul Normal 1.4-6.5 [facility] Comment on above: Performed By: #### A LPHPHN #### [facility] [address] [place] [address] Dr. Li Nagel Neutrophils/100 WBC (Bld) 58.2 % Normal 43.0-75.0 [facility] Comment on above: Performed By: #### A LPHPHN #### [facility] [address] [place] [address] Dr. Li Nagel Platelet mean volume (Bld) [Entitic vol] 11.0 fL Normal 9.5-13.5 [facility] Comment on above: Performed By: #### A LPHPHN #### [facility] [address] [place] [address] Dr. Li Nagel PLT 211 103/ul Normal 150-450 [facility] Comment on above: Performed By: #### A LPHPHN #### [facility] [address] [place], [place] [address] Dr. Li Nagel RBC 4.24 106/ul Normal 4.20-5.40 [facility] Comment on above: Performed By: #### A LPHPHN #### [facility] [address] [place], [place] [address] Dr. Li Nagel WBC 7.0 103/ul Normal 4.0-11.0 [facility] Comment on above: Performed By: #### A LPHPHN #### [facility] [address] [place], [place] [address] ABD/PELV W CONon [...] DOLORES MOON Date: 2021-10-20 14:53 Normal [facility] OCC BLD IMMUNO SCREENon - OCCULT BLOOD Negative Normal NEGATIVE [facility] Comment on above: Performed By: #### O BSCRN #### [facility] [address] [place] [address] [address] Li Nagel PROF 14(COMP METB)on 022 Albumin [Mass/Vol] 3.7 g/dL Normal 3.4-5.0 [facility] Comment on above: Performed By: #### A LPHPHN #### [facility] [address] [address] [address] Li Nagel Albumin/Globulin [Mass ratio] 1.2 {ratio} Normal [facility] Comment on above: Performed By: #### A LPHPHN #### [facility] [address] [address] [address] Li Nagel ALP [Catalytic activity/Vol] 86 U/L Normal 46-116 [facility] Comment on above: Performed By: #### A LPHPHN #### [facility] [address] [place] [address] Dr. Li Nagel ALT [Catalytic activity/Vol] 109 U/L Critically high 14-59 [facility] Comment on above: Performed By: #### A LPHPHN #### [facility] [address] [address] [address] Li Nagel Anion gap [Moles/Vol] 7.8 mmol/L Normal [facility] Comment on above: Performed By: #### A LPHPHN #### [facility] [address] [place] [address] [address] Li Nagel AST [Catalytic activity/Vol] 57 U/L Critically high 15-37 [facility] Comment on above: Performed By: #### A LPHPHN #### [facility] [address] [address] [address] Li Nagel Bilirubin [Mass/Vol] 0.4 mg/dL Normal 0.2-1.0 [facility] Comment on above: Performed By: #### A LPHPHN #### [facility] [address] [address] [address] Li Nagel Calcium [Mass/Vol] 8.9 mg/dL Normal 8.5-10.[address] [facility] Comment on above: Performed By: #### A LPHPHN #### [facility] [address] [address] [address] Li Nagel Chloride [Moles/Vol] 104 mmol/L Normal 98-107 [facility] Comment on above: Performed By: #### A LPHPHN #### [facility] [address] [place] [address] Dr. Li Nagel CO2 [Moles/Vol] 27.7 mmol/L Normal 21.0-32.0 [facility] Comment on above: Performed By: #### A LPHPHN #### [facility] [address] [place] [address] Dr. Li Nagel Creatinine [Mass/Vol] 0.78 mg/dL Normal 0.55-1.02 [facility] Comment on above: Performed By: #### A LPHPHN #### [facility] [address] [place] [address] Dr. Li Nagel EGFR-AF CITIZEN OF [place] >60 Normal >=60 [facility] Comment on above: Performed By: #### A LPHPHN #### [facility] [address] [place] [address] Dr. Li Nagel EGFR-NON AF CITIZEN OF [place] >60 Normal >=60 [facility] Comment on above: Performed By: #### A LPHPHN #### [facility] [address] [place] [address] Dr. Li Nagel Globulin (S) [Mass/Vol] 3.2 g/dL Normal [facility] Comment on above: Performed By: #### A LPHPHN #### [facility] [address] [place] [address] Dr. Li Nagel Glucose [Mass/Vol] 104 mg/dL Normal 74-106 [facility] Comment on above: Performed By: #### A LPHPHN #### [facility] [address] [place] [address] Dr. Li Nagel Potassium [Moles/Vol] 3.5 mmol/L Normal 3.5-5.1 [facility] Comment on above: Performed By: #### A LPHPHN #### [facility] [address] [place] [address] [address] Li Nagel Protein [Mass/Vol] 6.9 g/dL Normal 6.4-8.2 [facility] Comment on above: Performed By: #### A LPHPHN #### [facility] [address] [place] [address] [address] Li Nagel Sodium [Moles/Vol] 136 mmol/L Normal 136-145 [facility] Comment on above: Performed By: #### A LPHPHN #### [facility] [address] [place] [address] [address] Li Nagel Urea nitrogen [Mass/Vol] 10.0 mg/dL Normal 7.0-18.0 [facility] Comment on above: Performed By: #### A LPHPHN #### [facility] [address] [place] [address] Dr. Li Nagel Urea nitrogen/Creatinine [Mass ratio] 12.8 mg/mg Normal [facility] Comment on above: Performed By: #### A LPHPHN #### [facility] [address] [place] [address] Dr. Li Nagel XR LSPINE MIN 4 [...] LAURIE CRUZ Date: 2021-09-06 15:[address] [facility] NM HEPATOBILIARY SCAN W EFon 08-27-2021 [...] by: JACKSON ADKINS Date: 2021-08-27 16:05 Normal [facility] Metabolic Pane yair 08-20-2021 Albumin [Mass/Vol] 5.0 g/dL Normal 3.6-5.1 [facility] Specialist Comment on above: Performed By: #### C MP #### [facility] [address] [place], [place] [id number] Albumin/Globulin [Mass ratio] 2.1 {ratio} Normal 1.0-2.5 [facility] Specialist Comment on above: Performed By: #### C MP #### [facility] [address] [place], [place] [id number] ALP [Catalytic activity/Vol] 110 U/L Normal 35-119 [facility] Specialist Comment on above: Performed By: #### C MP #### [facility] [address] [place], [place] [id number] ALT [Catalytic activity/Vol] 71 U/L High 6-33 [facility] Comment on above: Result Comment: 03/24 Female reference range changed. Performed By: #### C MP #### [facility] [address] [place], [place] [id number] Anion gap [Moles/Vol] 17 mmol/L Normal 12-20 [facility] Comment on above: Result Comment: Effe ctive 04/29/2019 reference range changed. Performed By: #### C MP #### [facility] [address] [place], [place] [id number] AST [Catalytic activity/Vol] 69 U/L High 9-34 [facility] Specialist Comment on above: Performed By: #### C MP #### [facility] [address] [place], [place] [id number] BUN/CREA 11 Ratio Normal 6-22 [facility] Comment on above: Performed By: #### C MP #### [facility] [address] [place], [place] [id number] Calcium [Mass/Vol] 9.8 mg/dL Normal 8.6-10.2 [employer] [place] [employer] Supervisor Comment on above: Performed By: #### C MP #### [facility] [address] [place], [place] [id number] Chloride [Moles/Vol] 99 mmol/L Normal 98-107 [facility] Comment on above: Performed By: #### C MP #### [facility] [address] [place], [place] [id number] CO2 [Moles/Vol] 25 mmol/L Normal 20-31 [facility] Comment on above: Performed By: #### C MP #### [facility] [address] [place], [place] [id number] Creatinine [Mass/Vol] 0.9 mg/dL Normal 0.6-1.4 [facility] Comment on above: Performed By: #### C MP #### [facility] [address] [place], [place] [id number] eGFRAA 94 mL/min/1.73m2 Normal >60 [facility] Comment on above: Performed By: #### C MP #### [facility] [address] [place], [place] [id number] eGFRNAA 78 mL/min/1.73m2 Normal >60 [facility] Specialist Comment on above: Performed By: #### C MP #### [facility] [address] [place], [place] [id number] Globulin (S) [Mass/Vol] 2.4 g/dL Normal 1.9-3.7 [facility] Specialist Comment on above: Performed By: #### C MP #### [facility] [address] [place], [place] [id number] Glucose [Mass/Vol] 100 mg/dL High 65-99 [employer] mor[employer] [place] [employer] Supervisor Comment on above: Result Comment: For FASTING Glucose --- ADA reference ranges: Normal 65-99 mg/dl Prediabetes 100-125 Diabetes >/= 126 Performed By: #### C MP #### [facility] [address] [place], [place] [id number] Potassium [Moles/Vol] 3.8 mmol/L Normal 3.5-5.5 [facility] Comment on above: Performed By: #### C MP #### [facility] [address] [place], [place] [id number] Protein [Mass/Vol] 7.4 g/dL Normal 6.1-8.1 [facility] Comment on above: Performed By: #### C MP #### [facility] [address] [place], [place] [id number] Sodium [Moles/Vol] 137 mmol/L Normal 135-146 [facility] Specialist Comment on above: Performed By: #### C MP #### [facility] [address] [place], [place] [id number] TBIL <0.3 Normal [facility] Comment on above: Performed By: #### C MP #### [facility] [address] [place], [place] [id number] Urea nitrogen [Mass/Vol] 10 mg/dL Normal 7-25 [facility] Comment on above: Performed By: #### C MP #### [facility] [address] [place], [place] [id number] US SINGLE QUAD RT UPPERon US SINGLE [...] JACKSON ADKINS Date: 2021-08-16 08:19 Normal [facility] Complete Blood Count with Au to Diffon 08-06-2021 Basophils (Bld) [#/Vol] 0.03 10*3/uL Normal 0.00-0.20 [facility] Supervisor Comment on above: Performed By: #### C MP, CBCAD, LIPD #### [facility] [address] [place], [place] [id number] Basophils/100 WBC (Bld) 0.4 % Normal [facility] [employer] Supervisor Comment on above: Performed By: #### C MP, CBCAD, LIPD #### [facility] [address] [place], [place] [id number] Eosinophils (Bld) [#/Vol] 0.11 10*3/uL Normal 0.02-0.50 [facility] [employer] Supervisor Comment on above: Performed By: #### C MP, CBCAD, LIPD #### [facility] [address] [place], [place] [id number] Eosinophils/100 WBC (Bld) 1.4 % Normal [facility] [employer] Supervisor Comment on above: Performed By: #### C MP, CBCAD, LIPD #### [facility] [address] [place], [place] [id number] Erythrocyte distribution width (RBC) [Ratio] 12.6 % Normal 11.0-15.0 [facility] Specialist Comment on above: Performed By: #### C MP, CBCAD, LIPD #### [facility] [address] [place], [place] [id number] Hematocrit (Bld) [Volume fraction] 44.2 % Normal 35.0-47.0 [facility] Specialist Comment on above: Performed By: #### C MP, CBCAD, LIPD #### [facility] [address] [place], [place] [id number] Hemoglobin (Bld) [Mass/Vol] 14.8 g/dL Normal 11.6-15.5 [facility] Specialist Comment on above: Performed By: #### C MP, CBCAD, LIPD #### [facility] [address] [place], [place] [id number] Lymphocytes (Bld) [#/Vol] 2.2 10*3/uL Normal 0.9-3.9 [facility] Comment on above: Performed By: #### C MP, CBCAD, LIPD #### [facility] [address] [place], [place] [id number] Lymphocytes/100 WBC (Bld) 28.1 % Normal [facility] Comment on above: Performed By: #### C MP, CBCAD, LIPD #### [facility] [address] [place], [place] [id number] MCH (RBC) [Entitic mass] 31.2 pg Normal 27.0-33.0 [facility] Comment on above: Performed By: #### C MP, CBCAD, LIPD #### [facility] [address] [place], [place] [id number] MCHC (RBC) [Mass/Vol] 33.5 g/dL Normal 32.0-36.0 [facility] Comment on above: Performed By: #### C MP, CBCAD, LIPD #### [facility] [address] [place], [place] [id number] MCV (RBC) [Entitic vol] 93 fL Normal 80-100 [facility] Comment on above: Performed By: #### C MP, CBCAD, LIPD #### [facility] [address] [place], [place] [id number] Monocytes (Bld) [#/Vol] 0.4 10*3/uL Normal 0.2-0.9 [facility] Comment on above: Performed By: #### C MP, CBCAD, LIPD #### [facility] [address] [place], [place] [id number] Monocytes/100 WBC (Bld) 4.8 % Normal [facility] Comment on above: Performed By: #### C MP, CBCAD, LIPD #### [facility] [address] [place], [place] [id number] Neutrophils (Bld) [#/Vol] 5.1 10*3/uL Normal 1.5-7.8 [facility] Specialist Comment on above: Performed By: #### C MP, CBCAD, LIPD #### [facility] [address] [place], [place] [id number] Neutrophils/100 WBC (Bld) 64.3 % Normal [facility] Comment on above: Performed By: #### C MP, CBCAD, LIPD #### [facility] [address] [place], [place] [id number] Platelet mean volume (Bld) [Entitic vol] 11.00 fL Normal 7.50-12.50 [facility] Comment on above: Performed By: #### C MP, CBCAD, LIPD #### [facility] [address] [place], [place] [id number] Platelets (Bld) [#/Vol] 296 10*3/uL Normal 140-400 [facility] Specialist Comment on above: Performed By: #### C MP, CBCAD, LIPD #### [facility] [address] [place], [place] [id number] RBC (Bld) [#/Vol] 4.74 10*6/uL Normal 3.90-5.20 [facility] Specialist Comment on above: Performed By: #### C MP, CBCAD, LIPD #### [facility] [address] [place], [place] [id number] RDW-SD 43.4 fL Normal 37.0-50.0 [facility] Specialist Comment on above: Performed By: #### C MP, CBCAD, LIPD #### [facility] [address] [place], [place] [id number] WBC (Bld) [#/Vol] 8.0 10*3/uL Normal 3.8-11.0 [facility] Machining Supervisor Comment on above: Performed By: #### C MP, CBCAD, LIPD #### [facility] [address] [place], [place] [id number] Comprehensive Metabolic Pane yair 08-06-2021 Albumin [Mass/Vol] 5.2 g/dL High 3.6-5.1 [facility] Supervisor Comment on above: Performed By: #### C MP, CBCAD, LIPD #### [facility] [address] [place], [place] [id number] Albumin/Globulin [Mass ratio] 2.1 {ratio} Normal 1.0-2.5 [facility] Comment on above: Performed By: #### C MP, CBCAD, LIPD #### [facility] [address] [place], [place] [id number] ALP [Catalytic activity/Vol] 115 U/L Normal 35-119 [facility] Specialist Comment on above: Performed By: #### C MP, CBCAD, LIPD #### [facility] [address] [place] [id number] ALT [Catalytic activity/Vol] 101 U/L High 6-33 [facility] Comment on above: Result Comment: 03/24 Female reference range changed. Performed By: #### C NORBERTO, CBCAD, LIPD #### [facility] [address] [facility] [id number] Anion gap [Moles/Vol] 20 mmol/L Normal 12-20 [facility] Comment on above: Result Comment: Effe ctive 04/29/2019 reference range changed. Performed By: #### C MP, CBCAD, LIPD #### [facility] [address] [facility] [id number] AST [Catalytic activity/Vol] 96 U/L High 9-34 [facility] Comment on above: Performed By: #### C MP, CBCAD, LIPD #### [facility] [address] [facility] [id number] BUN/CREA 9 Ratio Normal 6-22 [facility] Comment on above: Performed By: #### C MP, CBCAD, LIPD #### [facility] [address] [facility] [place] [id number] Calcium [Mass/Vol] 9.9 mg/dL Normal 8.6-10.2 [facility] Comment on above: Performed By: #### C MP, CBCAD, LIPD #### [facility] [address] [place], [place] [id number] Chloride [Moles/Vol] 106 mmol/L Normal 98-107 [facility] Comment on above: Performed By: #### C MP, CBCAD, LIPD #### [facility] [address] [id number] CO2 [Moles/Vol] 21 mmol/L Normal 20-31 [facility] Comment on above: Performed By: #### C MP, CBCAD, LIPD #### [facility] [address] [facility] [place] [id number] Creatinine [Mass/Vol] 0.9 mg/dL Normal 0.6-1.4 [facility] Comment on above: Performed By: #### C MP, CBCAD, LIPD #### [facility] [address] [id number] eGFRAA 90 mL/min/1.73m2 Normal >60 [facility] Comment on above: Performed By: #### C NORBERTO, CBCAD, LIPD #### [facility] [address] [place], [place] [id number] eGFRNAA 74 mL/min/1.73m2 Normal >60 [facility] Comment on above: Performed By: #### C MP, CBCAD, LIPD #### [facility] [address] [facility] [place] [id number] Globulin (S) [Mass/Vol] 2.5 g/dL Normal 1.9-3.7 [facility] Comment on above: Performed By: #### C NORBERTO, CBCAD, LIPD #### [facility] [address] [facility] [place] [id number] Glucose [Mass/Vol] 127 mg/dL High 65-99 [facility] Comment on above: Result Comment: For FASTING Glucose --- ADA reference ranges: Normal 65-99 mg/dl Prediabetes 100-125 Diabetes >/= 126 Performed By: #### C MP, CBCAD, LIPD #### [facility] [address] [place], [place] [id number] Potassium [Moles/Vol] 4.2 mmol/L Normal 3.5-5.5 [facility] Comment on above: Performed By: #### C MP, CBCAD, LIPD #### [facility] [address] [facility] [id number] Protein [Mass/Vol] 7.7 g/dL Normal 6.1-8.1 [facility] Specialist Comment on above: Performed By: #### C MP, CBCAD, LIPD #### [facility] [address] [place], [place] [id number] Sodium [Moles/Vol] 143 mmol/L Normal 135-146 [facility] Machining Supervisor Comment on above: Performed By: #### C MP, CBCAD, LIPD #### [facility] [address] [place], [place] [id number] TBIL <0.3 Normal [facility] Specialist Comment on above: Performed By: #### C MP, CBCAD, LIPD #### [facility] [address] [place], [place] [id number] Urea nitrogen [Mass/Vol] 8 mg/dL Normal 7-25 [facility] Mach[facility] Supervisor Comment on above: Performed By: #### C MP, CBCAD, LIPD #### [facility] [address] [place], [place] [id number] Hemoglobin A1Con 08-06-2021 EAG 99.67 Normal [facility] Specialist Comment on above: Performed By: #### A 1C #### [facility] [address] [place], [place] [id number] HbA1c (Bld) [Mass fraction] 5.1 % Normal 4.0-6.0 [facility] Specialist Comment on above: Performed By: #### A 1C #### [facility] [address] [place], [place] [id number] Lipid Panelon 08-06-2021 Cholesterol [Mass/Vol] 190 mg/dL Normal 125-200 [facility] Comment on above: Result Comment: Low risk < 200mg/dL Borderline risk 201-239 mg/dl High risk > or equal to 240 Performed By: #### C MP, CBCAD, LIPD #### [facility] [address] [place], [place] [id number] Cholesterol in HDL [Mass/Vol] 64 mg/dL Normal >40 [facility] Machining Supervisor Comment on above: Result Comment: High Cardiovascular Risk HDL <40 mg/dL Low Cardiovascular Risk HDL > or equal to 60 mg/dl Performed By: #### C MP, CBCAD, LIPD #### [facility] [address] [place], [place] [id number] Cholesterol in LDL [Mass/Vol] 107 mg/dL Normal [facility] Mach[facility] Supervisor Comment on above: Result Comment: LDL ATP III CLASSIFICATION LDL less than 100 mg/dl Optimal LDL 100-129 mg/dl Near or above optimal LDL 130-159 Borderline high LDL 160-189 High LDL greater than 189 mg/dl Very High Performed By: #### C MP, CBCAD, LIPD #### [facility] [address] [place], [place] [id number] Cholesterol in VLDL [Mass/Vol] 19 mg/dL Normal [facility] Supervisor Comment on above: Performed By: #### C MP, CBCAD, LIPD #### [facility] [address] [place], [place] [id number] Cholesterol.total/Chol esterol in HDL [Mass ratio] 3 {ratio} Normal [facility] Specialist Comment on above: Performed By: #### C MP, CBCAD, LIPD #### [facility] [address] [place], [place] [id number] Triglyceride [Mass/Vol] 95 mg/dL Normal 30-150 [facility] Supervisor Comment on above: Result Comment: TRIG ATPIII CLASSIFICATIONS TRIG less than 150 mg/dl Normal TRIG 150-199 mg/dl Borderline High TRIG 200-500 mg/dl High TRIG greather than 500 mg/dl Very High Performed By: #### C MP, CBCAD, LIPD #### [facility] [address] [place], [place] [id number] Q - CULTURE,URINE,ROUTINEon 06-04-2021 CULTURE, URINE, ROUTINE SEE NOTE Normal [facility] Mach[facility] Supervisor Comment on above: Order Comment: [facility] performed at: [facility] [employer] [facility], [address] [place] [address], [address] [place] [address], [place], [address], Division Traffic Superintendent: Tim Dotson MD [facility] Collection Date/Time: [facility] Results Received Date/Time: [facility] Reported Date/Time: Result Comment: CULT URE, URINE, ROUTINE Micro Number: [id number] Test Status: Final Specimen Source: Not given Specimen Quality: Adequate Result: Mixed genital marie isolated. These superficial bacteria are not indicative of a urinary tract infection. No further organism identification is warranted on this specimen. If clinically indicated, recollect clean-catch, mid-stream urine and transfer immediately to Urine Culture Transport Tube. Performed By: #### [id number] #### [facility] [address] [place] [address] MRI LUMBAR SPINE WO CONTRAST on 11-06-2018 [...] Naren Lagos MD 11/06/18 Final result Normal [facility] Vital Signs Date Time Vital Sign Value Performing Clinician Facility 05-22-2024 14:30-0500 Diastolic blood pressure 92 mm[Hg] Carol Winn MD Work Phone: [facility] 05-22-2024 14:30-0500 Heart rate 102 /min Carol Winn MD Work Phone: [facility] 05-22-2024 14:30-0500 Respiratory rate 21 /min Carol Winn MD Work Phone: [facility] 05-22-2024 14:30-0500 SaO2% (BldA) [Mass fraction] 100 % Carol Winn MD Work Phone: [facility] 05-22-2024 14:30-0500 Systolic blood pressure 133 mm[Hg] Carol Winn MD Work Phone: [facility] 05-22-2024 13:40-0500 Body height 157.5 cm Carol Winn MD Work Phone: [facility] 05-22-2024 13:40-0500 Body mass index (BMI) [Ratio] 33.84 kg/m2 Carol Winn MD Work Phone: [facility] 05-22-2024 13:40-0500 Body weight 83.92 kg Carol Winn MD Work Phone: [facility] 05-15-2024 08:50-0500 Body height 157.5 cm Milton Fraire DPM FACFAS Work Phone: [facility] 05-15-2024 08:50-0500 Body mass index (BMI) [Ratio] 36.21 kg/m2 Milton Dolce DPM FACFAS Work Phone: [facility] 05-15-2024 08:50-0500 Body weight 89.81 kg Milton Corneliusce DPM FACFAS Work Phone: [facility] 05-15-2024 08:50-0500 Diastolic blood pressure 82 mm[Hg] Milton Fraire DPM FACFAS Work Phone: [facility] 05-15-2024 08:50-0500 Heart rate 92 /min Milton Dolce DPM FACFAS Work Phone: [facility] 05-15-2024 08:50-0500 Systolic blood pressure 132 mm[Hg] Milton Corneliusce DPM FACFAS Work Phone: [facility] 05-09-2024 14:55-0500 Body height 157.5 cm Giovani Hagen MD Work Phone: [facility] 05-09-2024 14:55-0500 Body mass index (BMI) [Ratio] 36.21 kg/m2 Giovani Hagen MD Work Phone: [facility] 05-09-2024 14:55-0500 Body weight 89.81 kg Giovani Hagen MD Work Phone: [facility] 05-09-2024 14:55-0500 Diastolic blood pressure 88 mm[Hg] Giovani Hagen MD Work Phone: [facility] 05-09-2024 14:55-0500 Heart rate 101 /min Giovani Hagen MD Work Phone: [facility] 05-09-2024 14:55-0500 SaO2% (BldA) [Mass fraction] 96 % Giovani Hagen MD Work Phone: [facility] 05-09-2024 14:55-0500 Systolic blood pressure 134 mm[Hg] Giovani Hagen MD Work Phone: [facility] 05-08-2024 15:13-0500 Body height 157.5 cm Prateek Pedraza DPM Work Phone: [facility] 05-08-2024 15:13-0500 Body mass index (BMI) [Ratio] 35.3 kg/m2 Prateek Pedraza DPM Work Phone: [facility] 05-08-2024 15:13-0500 Body weight 87.54 kg Prateek Pedraza DPM Work Phone: [facility] 05-08-2024 15:13-0500 Respiratory rate 18 /min Prateek Pedraza DPM Work Phone: [facility] 04-30-2024 15:10-0500 Body mass index (BMI) [Ratio] 35.12 kg/m2 Darwin Matty DO Work Phone: [facility] 04-30-2024 15:10-0500 Body weight 87.09 kg Darwin Matty DO Work Phone: [facility] 04-30-2024 15:10-0500 Diastolic blood pressure 74 mm[Hg] Darwin Matty DO Work Phone: [facility] 04-30-2024 15:10-0500 Systolic blood pressure 122 mm[Hg] Darwin Matty DO Work Phone: [facility] 04-26-2024 14:12-0500 Body mass index (BMI) [Ratio] 33.87 kg/m2 Iliana Yacapraro PA-C Work Phone: [facility] 04-26-2024 14:12-0500 Body weight 84 kg Iliana Yacapraro PA-C Work Phone: [facility] 04-26-2024 14:12-0500 Diastolic blood pressure 92 mm[Hg] Iliana Yacapraro PA-C Work Phone: [facility] 04-26-2024 14:12-0500 Heart rate 84 /min Iliana Yacapraro PA-C Work Phone: [facility] 04-26-2024 14:12-0500 Systolic blood pressure 133 mm[Hg] Iliana Yacapraro PA-C Work Phone: [facility] 04-18-2024 16:42-0500 Body mass index (BMI) [Ratio] 35.67 kg/m2 Josephine Gilman PUBLIC INFORMATION COORDINATOR Work Phone: [facility] 04-18-2024 16:42-0500 Body temperature 97.7 [degF] Josephine Gilman PUBLIC INFORMATION COORDINATOR Work Phone: [facility] 04-18-2024 16:42-0500 Body weight 88.45 kg Josephine Gilman PUBLIC INFORMATION COORDINATOR Work Phone: [facility] 04-18-2024 16:42-0500 Diastolic blood pressure 82 mm[Hg] Josephine Gilman PUBLIC INFORMATION COORDINATOR Work Phone: [facility] 04-18-2024 16:42-0500 Heart rate 112 /min Josephine Gilman PUBLIC INFORMATION COORDINATOR Work Phone: [facility] Comment on above: repeat pulse 96bpm apical. 12-26-2024 16:42-0500 Respiratory rate 20 /min Josephine Munozrodney PUBLIC INFORMATION COORDINATOR Work Phone: [facility] 04-18-2024 16:42-0500 SaO2% (BldA) [Mass fraction] 97 % Josephine Gilman PUBLIC INFORMATION COORDINATOR Work Phone: [facility] 04-18-2024 16:42-0500 Systolic blood pressure 128 mm[Hg] Josephine Umucharrodney PUBLIC INFORMATION COORDINATOR Work Phone: [facility] 04-03-2024 10:39-0500 Body height 157.5 cm Deena Lyn PUBLIC INFORMATION COORDINATOR Work Phone: [facility] 04-03-2024 10:39-0500 Body mass index (BMI) [Ratio] 35.01 kg/m2 Deena Honor PUBLIC INFORMATION COORDINATOR Work Phone: [facility] 04-03-2024 10:39-0500 Body weight 86.82 kg Deena Honor PUBLIC INFORMATION COORDINATOR Work Phone: [facility] 04-03-2024 10:39-0500 Diastolic blood pressure 82 mm[Hg] Deena Honor PUBLIC INFORMATION COORDINATOR Work Phone: [facility] 04-03-2024 10:39-0500 Heart rate 101 /min Deena Devon PUBLIC INFORMATION COORDINATOR Work Phone: [facility] 04-03-2024 10:39-0500 Respiratory rate 16 /min Deena Honor PUBLIC INFORMATION COORDINATOR Work Phone: [facility] 04-03-2024 10:39-0500 SaO2% (BldA) [Mass fraction] 99 % Deena Honor PUBLIC INFORMATION COORDINATOR Work Phone: [facility] 04-03-2024 10:39-0500 Systolic blood pressure 122 mm[Hg] Deena Devon PUBLIC INFORMATION COORDINATOR Work Phone: [facility] 04-01-2024 08:40-0500 Body height 157.5 cm Giovani Hagen MD Work Phone: [facility] 04-01-2024 08:40-0500 Body mass index (BMI) [Ratio] 34.39 kg/m2 Giovani Hagen MD Work Phone: [facility] 04-01-2024 08:40-0500 Body weight 85.28 kg Giovani Hagen MD Work Phone: [facility] 04-01-2024 08:40-0500 Diastolic blood pressure 88 mm[Hg] Giovani Hagen MD Work Phone: [facility] 04-01-2024 08:40-0500 Heart rate 88 /min Giovani Hagen MD Work Phone: [facility] 04-01-2024 08:40-0500 SaO2% (BldA) [Mass fraction] 94 % Giovani Hagen MD Work Phone: [facility] 04-01-2024 08:40-0500 Systolic blood pressure 132 mm[Hg] Giovani Hagen MD Work Phone: [facility] 03-20-2024 16:29-0500 Body mass index (BMI) [Ratio] 34.93 kg/m2 Darwin Matty DO Work Phone: [facility] 03-20-2024 16:29-0500 Body weight 86.64 kg Darwin Matty DO Work Phone: [facility] 03-20-2024 16:29-0500 Diastolic blood pressure 72 mm[Hg] Darwin Matty DO Work Phone: [facility] 03-20-2024 16:29-0500 Systolic blood pressure 118 mm[Hg] Darwin Matty DO Work Phone: [facility] 02-06-2024 09:14-0400 Body height 157.5 cm Giovani Hagen MD Work Phone: [facility] 02-06-2024 09:14-0400 Body mass index (BMI) [Ratio] 34.93 kg/m2 Giovani Hagen MD Work Phone: [facility] 02-06-2024 09:14-0400 Body weight 86.64 kg Giovani Hagen MD Work Phone: [facility] 02-06-2024 09:14-0400 Diastolic blood pressure 88 mm[Hg] Giovani Hagen MD Work Phone: [facility] 02-06-2024 09:14-0400 Heart rate 106 /min Giovani Hagen MD Work Phone: [facility] 02-06-2024 09:14-0400 SaO2% (BldA) [Mass fraction] 99 % Giovani Hagen MD Work Phone: [facility] 02-06-2024 09:14-0400 Systolic blood pressure 130 mm[Hg] Giovani Hagen MD Work Phone: [facility] 01-22-2024 13:37-0400 Diastolic blood pressure 74 mm[Hg] Darwin Matty DO Work Phone: [facility] 01-22-2024 13:37-0400 Systolic blood pressure 112 mm[Hg] Darwin Matty DO Work Phone: [facility] 01-09-2024 16:00-0400 Body height 157.5 cm Giovani Hagen MD Work Phone: [facility] 01-09-2024 16:00-0400 Body mass index (BMI) [Ratio] 34.75 kg/m2 Giovani Hagen MD Work Phone: [facility] 01-09-2024 16:00-0400 Body weight 86.18 kg Giovani Hagen MD Work Phone: [facility] 01-09-2024 16:00-0400 Diastolic blood pressure 84 mm[Hg] Giovani Hagen MD Work Phone: [facility] 01-09-2024 16:00-0400 Heart rate 96 /min Giovani Hagen MD Work Phone: [facility] 01-09-2024 16:00-0400 SaO2% (BldA) [Mass fraction] 98 % Giovani Hagen MD Work Phone: [facility] 01-09-2024 16:00-0400 Systolic blood pressure 124 mm[Hg] Giovani Hagen MD Work Phone: [facility] 12-28-2023 15:17-0400 Blood Pressure Location BHAVESH DEJESUS [facility] 12-28-2023 15:17-0400 Diastolic blood pressure 100 mm[Hg] BHAVESH OLEG [facility] 12-28-2023 15:17-0400 Heart rate 101 /min BHAVESH DEJESUS [facility] 12-28-2023 15:17-0400 Respiratory rate 18 /min BHAVESH OLEG [facility] 12-28-2023 15:17-0400 Systolic blood pressure 146 mm[Hg] BHAVESH OLEG [facility] 12-26-2023 15:07-0400 Body height 157.5 cm Giovani Hagen MD Work Phone: [facility] 12-26-2023 15:07-0400 Body mass index (BMI) [Ratio] 34.2 kg/m2 Giovani Hagen MD Work Phone: [facility] 12-26-2023 15:07-0400 Body weight 84.82 kg Giovani Hagen MD Work Phone: [facility] 12-26-2023 15:07-0400 Diastolic blood pressure 78 mm[Hg] Giovani Hagen MD Work Phone: [facility] 12-26-2023 15:07-0400 Heart rate 98 /min Giovani Hagen MD Work Phone: [facility] 12-26-2023 15:07-0400 SaO2% (BldA) [Mass fraction] 98 % Giovani Hagen MD Work Phone: [facility] 12-26-2023 15:07-0400 Systolic blood pressure 112 mm[Hg] Giovani Hagen MD Work Phone: [facility] 12-19-2023 15:01-0400 Body height 157.5 cm Solo Mora MD Work Phone: [facility] 12-19-2023 15:01-0400 Body mass index (BMI) [Ratio] 34.39 kg/m2 Solo Mora MD Work Phone: [facility] 12-19-2023 15:01-0400 Body weight 85.28 kg Solo Mora MD Work Phone: [facility] 12-19-2023 15:01-0400 Diastolic blood pressure 91 mm[Hg] Solo Mora MD Work Phone: [facility] 12-19-2023 15:01-0400 Heart rate 94 /min Solo Mora MD Work Phone: [facility] 12-19-2023 15:01-0400 Systolic blood pressure 127 mm[Hg] Solo Mora MD Work Phone: [facility] 11-02-2022 13:10-0400 Body height 157.5 cm Samuel Freeman MD Work Phone: [facility] 11-02-2022 13:10-0400 Body weight 71 kg Samuel Freeman MD Work Phone: [facility] 11-02-2022 13:10-0400 Diastolic blood pressure 97 mm[Hg] Samuel Freeman MD Work Phone: [facility] 11-02-2022 13:10-0400 Heart rate 100 /min Samuel Freeman MD Work Phone: [facility] 11-02-2022 13:10-0400 Systolic blood pressure 141 mm[Hg] Samuel Freeman MD Work Phone: [facility] 08-31-2022 15:30-0400 Diastolic blood pressure 91 mm[Hg] Carol Winn MD Work Phone: [facility] 08-31-2022 15:30-0400 Heart rate 99 /min Carol Winn MD Work Phone: [facility] 08-31-2022 15:30-0400 Respiratory rate 24 /min Carol Winn MD Work Phone: [facility] 08-31-2022 15:30-0400 SaO2% (BldA) [Mass fraction] 97 % Carol Winn MD Work Phone: [facility] 08-31-2022 15:30-0400 Systolic blood pressure 140 mm[Hg] Carol Winn MD Work Phone: [facility] 08-31-2022 14:10-0400 Body height 157.5 cm Carol Winn MD Work Phone: [facility] 08-31-2022 14:10-0400 Body mass index (BMI) [Ratio] 33.84 kg/m2 Carol Winn MD Work Phone: [facility] 08-31-2022 14:10-0400 Body weight 83.92 kg Carol Winn MD Work Phone: [facility] 06-30-2022 12:40-0500 Diastolic blood pressure 85 mm[Hg] Carol Winn MD Work Phone: [facility] 06-30-2022 12:40-0500 Heart rate 70 /min Carol Winn MD Work Phone: [facility] 06-30-2022 12:40-0500 Respiratory rate 12 /min Carol Winn MD Work Phone: [facility] 06-30-2022 12:40-0500 SaO2% (BldA) [Mass fraction] 100 % Carol Winn MD Work Phone: [facility] 06-30-2022 12:40-0500 Systolic blood pressure 120 mm[Hg] Carol Winn MD Work Phone: [facility] 06-30-2022 11:18-0500 Body height 157.5 cm Carol Winn MD Work Phone: [facility] 06-30-2022 11:18-0500 Body mass index (BMI) [Ratio] 33.84 kg/m2 Carol Winn MD Work Phone: [facility] 06-30-2022 11:18-0500 Body weight 83.92 kg Carol Winn MD Work Phone: [facility] 05-27-2022 11:29-0500 Body weight 85.73 kg Carol Winn MD Work Phone: [facility] 05-27-2022 11:29-0500 Diastolic blood pressure 92 mm[Hg] Carol Winn MD Work Phone: [facility] 05-27-2022 11:29-0500 Heart rate 102 /min Carol Winn MD Work Phone: [facility] 05-27-2022 11:29-0500 Systolic blood pressure 145 mm[Hg] Carol Winn MD Work Phone: [facility] 05-03-2022 15:30-0500 Body height 158.75 cm Imad Asaad Other [employer] Other 05-03-2022 15:30-0500 Body mass index (BMI) [Ratio] 34.55 kg/m2 Imad Asaad Other [employer] Other 05-03-2022 15:30-0500 Body weight 87.09 kg Imad Asaad Other [employer] Other 05-03-2022 15:30-0500 Diastolic blood pressure 91 mm[Hg] Imad Asaad Other [employer] Other 05-03-2022 15:30-0500 Systolic blood pressure 130 mm[Hg] Imad Asaad Other [facility] [employer] Other 05-03-2022 14:47-0500 Body weight 0 kg MD Giovani Hagen Work Phone: [facility] Encounters Encounter Date Encounter Type Care Provider Facility Start: 12-30-2024 ambulatory Madhuri MISHRA Facility:[facility] Start: 05-23-2024 End: 05-23-2024 Clinisync Result Encounter Darwin Mtaty DO Work Phone: [facility] Unsolicited Start: 05-23-2024 End: 05-23-2024 Clinisync Result Encounter Darwin Matty DO Work Phone: [facility] Unsolicited Start: 05-23-2024 End: 05-24-2024 Orders Only Carol Winn MD Work Phone: Ambulatory Surgery Comment on above: Results (C diff) Start: 05-22-2024 End: 05-22-2024 ambulatory GIOVANI HAGEN Facility:[facility] Start: 05-22-2024 End: 05-22-2024 Clinisync Result Encounter Generic External Data Provider [facility] Unsolicited Start: 05-22-2024 End: 05-22-2024 Clinisync Result Encounter Generic External Data Provider [facility] Unsolicited Start: 05-22-2024 End: 05-22-2024 Subsequent hospital visit by physician Carol Winn MD Work Phone: Ambulatory Surgery Comment on above: BRBPR (bright red blood per rectum) [K62 .5] Start: 05-15-2024 End: 05-15-2024 Bamboo flowsheet [place] [...] Transcribe Orders Rosario Mcconnell MD Work Phone: [facility] Comment on above: ENGLISH (nonalcoholic steatohepatitis) (Rosanne osman Dx) Start: 05-09-2024 End: 05-09-2024 Office outpatient visit 15 minutes Giovani Hagen MD Work Phone: [facility] Comment on above: Cervical radiculopathy due to degenerati ve joint disease of spine (Primary Dx) Start: 05-09-2024 End: 05-09-2024 Orders Only Lydia Kelley DO Work Phone: Orthopaedics Comment on above: Right ankle instability (Primary Dx) Start: 05-08-2024 End: 05-08-2024 Office outpatient visit 25 minutes Prtaeek Pedraza DPM Work Phone: [facility] [...] remission, most recent episode manic (CMS/HCC) Start: 05-06-2024 End: 05-06-2024 Telephone encounter Solo Mora MD Work Phone: Cardiology Comment on above: Patient Update (04/09/24 Echo Faxed) Start: 05-02-2024 End: 05-15-2024 Orders Only Iliana Mercado PA-C Work Phone: Gastroenterology Comment on above: Elevated LFTs (Primary Dx) Received images Start: 04-30-2024 End: 04-30-2024 Office outpatient visit 15 minutes Darwin Matty DO Work Phone: [facility] Comment on above: Pre-op evaluation; H/O female dyspareunia; Pelvic pain; Other endometriosis; H/O: hysterectomy Start: 04-30-2024 End: 04-30-2024 Preprocedural examination done Darwin Matty DO Work Phone: [facility] Start: 04-30-2024 End: 04-30-2024 Bamboo flowsheet Darwin Matty DO Work Phone: [facility] Start: 04-30-2024 End: 04-30-2024 Bamboo flowsheet Darwin Matty DO Work Phone: [facility] Start: 04-30-2024 End: 04-30-2024 Refill Giovani Hagen MD Work Phone: [facility] [...] Unsolicited Start: 04-26-2024 End: 04-26-2024 ambulatory ILIANA ATKINSEDWARDOZHOU Facility:[facility] Start: 04-26-2024 End: 04-26-2024 Patient encounter procedure Lydia Robleslindsayportia DO Work Phone: Orthopaedics Comment on above: [...] Office outpatient visit 25 minutes Josephine Gilman PUBLIC INFORMATION COORDINATOR Work Phone: [facility] Comment on above: Acute bronchitis with asthma (CMS/HCC) ( Primary Dx) Start: 04-16-2024 End: 04-16-2024 ambulatory GIOVANI HAGEN Not Available Start: 04-09-2024 End: 04-09-2024 ambulatory SOLO MORA Facility:[facility] Start: 04-05-2024 End: 04-09-2024 ambulatory [facility] Cardiology Comment on above: Surgical Clearance Start: 04-05-2024 End: 04-05-2024 Telephone encounter Solo Mora MD Work Phone: Cardiology Comment on above: Received Outside Medical Records (Cardio Clearance [facility]) Start: 04-03-2024 End: 04-03-2024 ambulatory DEENA LYN Not Available Start: 04-03-2024 End: 04-03-2024 Office outpatient visit 25 minutes Deena Lyn PUBLIC INFORMATION COORDINATOR Work Phone: [facility] Comment on above: Hypokalemia (Primary Dx); Elevated blood sugar; Pre-operative clearance; Acute pain of left shoulder; Obesity (BMI 35.0-39.9 without comorbidity) Start: 04-03-2024 End: 04-03-2024 Preoperative state Deena Bob Devon PUBLIC INFORMATION COORDINATOR Work Phone: [facility] Start: 04-02-2024 End: 04-02-2024 Telephone encounter Solo Mora MD Work Phone: Cardiology Comment on above: Received Outside Medical Records ([facility] [employer]) Start: 04-01-2024 End: 04-01-2024 ambulatory GIOVANI HAGEN Not Available Start: 04-01-2024 End: 04-01-2024 Office outpatient visit 25 minutes Giovani Hagen MD Work Phone: [facility] Comment on above: Tremors of nervous system (Primary Dx); Mild intermittent asthma without complication (CMS/HCC) Start: 03-29-2024 End: 04-01-2024 ambulatory Carol Winn MD Work Phone: Gastroenterology [...] 03-20-2024 End: 03-20-2024 Patient encounter procedure Darwin Starr DO Work Phone: [facility] Start: 03-20-2024 End: 03-20-2024 Periodic preventive med est patient 18-39 yrs Darwin Mcleodo DO Work Phone: [facility] Comment on above: Well woman exam with routine gynecologic al exam; Dyspareunia in female; Cystitis Start: 03-20-2024 End: 03-20-2024 ambulatory DARWIN MCLEODO Not Available Start: 03-20-2024 End: 03-29-2024 Clinisync Result Encounter Generic External Data Provider [facility] Unsolicited Start: 03-20-2024 End: 03-29-2024 Clinisync Result Encounter Generic External Data Provider [facility] Unsolicited Start: 03-19-2024 End: 03-19-2024 ambulatory Anitra Ricci CERAMIC WORKER [facility] Comment on above: Cervical radiculopathy (Primary Dx) Start: 03-11-2024 End: 03-11-2024 ambulatory Arun Brink CERAMIC WORKER [facility] Comment on above: Cervical radiculopathy (Primary Dx) Start: 03-11-2024 End: 03-11-2024 Bamboo flowsheet Arun Brink CERAMIC WORKER [facility] Start: 03-11-2024 End: 03-11-2024 Bamboo flowsheet Arun Brink CERAMIC WORKER [facility] Start: 03-07-2024 End: 03-07-2024 Refill Giovani Hagen MD Work Phone: [facility] Comment on above: Obesity (BMI 35.0-39.9 without comorbidi ty) Start: 03-06-2024 End: 03-07-2024 ambulatory Arun Brink CERAMIC WORKER [facility] Comment on above: Cervical radiculopathy (Primary Dx) Anxiety; Bipolar disorder, in partial remission, most recent episode manic ([facility]) Start: 02-29-2024 End: 02-29-2024 ambulatory Anitra Kelbley CERAMIC WORKER [facility] Comment on above: Cervical radiculopathy (Primary Dx) Start: 02-29-2024 End: 02-29-2024 Bamboo flowsheet Anitra Bainbley CERAMIC WORKER [facility] Start: 02-29-2024 End: 02-29-2024 Bamboo flowsheet Anitra Lry CERAMIC WORKER [facility] Start: 02-27-2024 End: 02-27-2024 ambulatory Anitra Lry CERAMIC WORKER [facility] Comment on above: Cervical radiculopathy (Primary Dx) Start: 02-27-2024 End: 02-27-2024 Bamboo flowsheet Anitra Lry CERAMIC WORKER [facility] Start: 02-27-2024 End: 02-27-2024 Bamboo flowsheet Anitra Lry CERAMIC WORKER [facility] Start: 02-20-2024 End: 02-20-2024 Refill Audrey Perez [employer]ING [employer]ACHINE [employer] [facility] Comment on above: Attention deficit hyperactivity disorder (ADHD), predominantly inattentive type (CMS/HCC) Start: 02-14-2024 End: 02-15-2024 ambulatory Arun Brink CERAMIC WORKER [facility] Comment on above: Cervical radiculopathy (Primary Dx) Start: 02-14-2024 End: 02-14-2024 Bamboo flowsheet Arun Brink CERAMIC WORKER [facility] Start: 02-14-2024 End: 02-14-2024 Bamboo flowsheet Arun Brink CERAMIC WORKER [facility] Start: 02-12-2024 End: 02-12-2024 ambulatory Zhen Burgess PT Work Phone: [facility] Comment on above: Cervical radiculopathy (Primary Dx) Start: 02-12-2024 End: 02-12-2024 Bamboo flowsheet Zhen Valentinton PT Work Phone: [facility] Start: 02-12-2024 End: 02-12-2024 Bamboo flowsheet Zhen Valentinton PT Work Phone: [facility] Start: 02-07-2024 End: 02-07-2024 ambulatory Arun Brink CERAMIC WORKER [facility] Comment on above: Cervical radiculopathy (Primary Dx) Start: 02-07-2024 End: 02-07-2024 Bamboo flowsheet Arun Hernadez CERAMIC WORKER [facility] Start: 02-07-2024 End: 02-07-2024 Bamboo flowsheet Arun Hernadez CERAMIC WORKER [facility] Start: 02-06-2024 End: 02-06-2024 Office outpatient visit 25 minutes Giovani Hagen MD Work Phone: [facility] Comment on above: Localized edema (Primary Dx); Obesity (BMI 35.0-39.9 without comorbidity); Injury of right ankle, subsequent encounter; Anxiety; Bipolar disorder, in partial remission, most recent episode manic ([facility]) Start: 02-06-2024 End: 02-06-2024 ambulatory GIOVANI HAGEN [...] PT Initial Eval (Tried to contact to [facility] PT Eval for cervical radiculopathy; but had to lm requesting call back.); Call Back (She contacted and we scheduled PT Eval 02/04 w/ Zhen Burgess, PT.) Start: 01-22-2024 End: 01-22-2024 Office outpatient visit 15 minutes Darwin Starr DO Work Phone: [facility] Comment on above: Dyspareunia in female; Urethral pain Start: 01-22-2024 End: 01-22-2024 ambulatory DARWIN STARR Not Available Start: 01-09-2024 End: 01-09-2024 Office outpatient visit 25 minutes Giovani Hagen MD Work Phone: [facility] Comment on above: Cervical radiculopathy (Primary Dx); Attention deficit hyperactivity disorder (ADHD), predominantly inattentive type (CMS/HCC); Anxiety; Bipolar disorder, in partial remission, most recent episode manic (CMS/HCC) Start: 01-09-2024 End: 01-09-2024 ambulatory GIOVANI GUPTAA Not Available Start: 01-08-2024 End: 01-08-2024 Telephone encounter Giovani Hagen MD Work Phone: [facility] Comment on above: Med Refill Start: 12-28-2023 End: 12-28-2023 Patient encounter procedure BHAVESH DEJESUS [facility] Start: 12-28-2023 End: 12-29-2023 ambulatory BHAVESH DEJESUS Facility:[facility] Comment on above: Zio Start: 12-26-2023 End: [...] Dx) Start: 12-18-2023 End: 02-01-2024 Telephone encounter Benito Kendrick [facility] Comment on above: Lab results Start: 12-13-2023 End: 12-13-2023 Clinisync Result Encounter Generic External Data Provider [facility] Unsolicited Start: 12-13-2023 End: 12-13-2023 Clinisync Result Encounter Generic External Data Provider [facility] External Department Unsolicited Start: 12-04-2023 End: 12-04-2023 ambulatory GIOVANI HAGEN Not Available Start: 12-04-2023 Patient encounter status Zhen Burgess PT Work Phone: [facility] Start: 11-02-2023 Orders Only Solo Mora MD Work Phone: Cardiology Comment on above: Gastroparesis (Primary Dx) Patient Update (Refe rral & Records are in Care Everywhere) Start: 10-03-2023 End: 10-03-2023 ambulatory GIOVANI HAGEN Not Available Start: 09-07-2023 End: 09-07-2023 ambulatory CADE Jonelle WILCOX Not Available Start: 03-22-2023 End: 03-24-2023 Evaluation and management of inpatient [facility] Start: 03-20-2023 ambulatory Carol Winn MD [...] 10-26-2022 ambulatory Imad Asaad Facility:[facility] Start: 10-26-2022 End: 10-26-2022 ambulatory MD Giovani Hagen Work Phone: [facility] Work Phone: Start: 10-26-2022 End: 10-26-2022 Patient encounter procedure MD Giovani Hagen Work Phone: [facility] [place] Work Phone: Start: 10-18-2022 ambulatory Maria Dolores Corey DO Work Phone: Gastroenterology Start: 10-18-2022 Telephone encounter Maria Dolores Corey DO Work Phone: Gastroenterology Comment on above: Medication Preauthorization ([employer]) Results Start: 10-17-2022 End: 10-17-2022 Patient encounter procedure [facility] Work Phone: Gastroenterology Comment on above: Gastroparesis (Primary Dx) Start: 09-12-2022 End: 09-12-2022 Subsequent hospital visit by physician [facility] Work Phone: [facility] Comment on above: Nausea [R11.0] Start: 08-31-2022 End: 08-31-2022 Subsequent hospital visit by physician Carol Winn MD Work Phone: Ambulatory Surgery Comment on above: PUD (peptic ulcer disease) [K27.9] Start: 08-24-2022 Telephone encounter Nurse [facility] Work Phone: Gastroenterology Comment on above: Appointment Start: 07-08-2022 End: 07-08-[address] MADHURI MISHRA . Facility:[facility] Start: 07-06-2022 End: 07-07-[address] MADHURI MISHRA . Facility:[facility] Start: 07-05-2022 End: 07-05-2022 Patient encounter procedure Madhuri MISHRA [facility] Start: 07-04-2022 Orders Only Carol Winn MD Work Phone: Gastroenterology Start: 06-30-2022 End: 06-30-2022 Subsequent hospital visit by physician Carol Winn MD Work Phone: Ambulatory Surgery Comment on above: Bilious vomiting with nausea [R11.14] Start: 06-29-2022 End: 06-30-[address] MADHURI MISHRA . Facility: Start: 06-29-2022 End: 06-29-2022 Lab Drop off Madhuri MISHRA [facility] [facility] Start: 06-23-2022 ambulatory Carol Winn MD Work Phone: Gastroenterology Comment on above: EGD instructions Start: 06-23-2022 E-mail encounter from caregiver Carol Winn MD Work Phone: [facility] Start: 06-16-2022 ambulatory [facility] Provider Gastroenterology Comment on above: Question regarding US ABD RT UPPER QUADR ANT Start: 06-15-2022 End: 06-15-2022 Subsequent hospital visit by physician [facility] Work Phone: [facility] Radiology Ultrasound Comment on above: Liver lesion [K76.9] Start: 06-14-2022 Orders Only Carol Winn MD Work Phone: Ambulatory Surgery Comment on above: Liver lesion (Primary Dx) Results Start: 06-10-2022 ambulatory Diamond Pycraft RT(R) Radiology Ct Scan Comment on above: Radiology CT Start: 06-10-2022 Patient encounter procedure Diamond Pycraft RT(R) [facility] Start: 06-10-2022 End: 06-10-2022 Subsequent hospital visit by physician Ct Prep [facility] Radiology Ct Scan Comment on above: Bilious vomiting with nausea [R11.14] Start: 05-27-2022 End: 05-27-2022 Subsequent hospital visit by physician [facility] Work Phone: [facility] Radiology General Comment on above: SOB (shortness of breath) [R06.02] Start: 05-27-2022 End: 05-27-2022 Patient encounter procedure Carol Winn MD Work Phone: Gastroenterology Comment on above: Fatty liver (Primary Dx); Bilious vomiting with nausea; Right sided abdominal pain; Nausea; History of diverticulitis; SOB (shortness of breath) Start: 05-13-2022 End: 05-13-2022 ambulatory Imad Asaad Facility:[facility] Start: 05-13-2022 End: 05-13-2022 ambulatory MD Giovani Hagen Work Phone: [facility] Work Phone: Start: 05-13-2022 End: 05-13-2022 Patient encounter procedure MD Giovani Hagen Work Phone: [facility] Work Phone: Start: 05-03-2022 End: 05-04-2022 ambulatory IMAD ASAAD [facility] [employer] Other Start: 05-03-2022 Office consultation new/estab patient 60 min Imad Asaad [facility] Start: 04-20-2022 End: 04-20-[address] AURORA IRBY . Facility:[facility] Start: 04-06-2022 End: 04-07-[address] GIOVANI HAGEN Facility:[facility] Start: 12-21-2021 End: 12-22-[address] AURORA IRBY . Facility:[facility] Start: 12-10-2021 End: 12-10-2021 Subsequent hospital visit by physician [facility] Ultrasound Comment on above: Elevated [...] End: 11-09-2018 Patient encounter procedure OZIEL MONTEIRO [facility] Procedures Date Procedure Procedure Detail Performing Clinician Start: 05-23-2024 ALL CBC WITH AUTO DIFF Generic External Data Provider Start: 05-22-2024 Inf agent det nucleic acid clostridium amp probe Carol Winn MD Work Phone: Start: 05-22-2024 Colonoscopy Generic External Data Provider Start: 05-22-2024 Colonoscopy flx dx w/collj spec when pfrmd Iliana Mercado PA-C Work Phone: Start: 05-15-2024 Radex ankle complete minimum 3 views Milton D Dolce DPM FACFAS Work Phone: Start: 05-08-2024 ALL CBC WITH AUTO DIFF Darwin Matty DO Work Phone: Start: 05-02-2024 End: 05-02-2024 Liver elastography w/o imag w/i&r Iliana Mercado PA-C Work Phone: Start: 04-26-2024 [facility] CBC W AUTO DIFF BLD Generic External Data Provider Start: 03-20-2024 IGP,APTIMA HPV,AGE GDLN Darwin Matty DO Work Phone: Start: 12-13-2023 ALL CBC WITH AUTO DIFF Dez R Kubitz DPM Work Phone: Start: 04-18-2023 History of [...] spinal canal lumbar w/o contrast material OZIEL MONTEIRO Start: 09-18-2018 Facet Medial Branch Block [...] Darwin Matty DO Work Phone: Hysterectomy Madhuri MSIHRA Plan of Treatment Date Care Activity Detail Author Start: 12-23-2024 Influenza vaccination Influenza Vaccine (#1) [facility] Comment on above: Postponed from 12/24/2023 (Other Medical Reasons) Start: 07-26-2024 End: 07-26-2024 ambulatory 07/26/2024 8:40 AM EDT [facility] Gastroenterology [address] [place] [address] [place] [address] [facility] [place] [phone] Elevated LFT, per Pt Gastroenterology Comment on above: Elevated LFT, per Pt Start: 06-17-2024 End: 06-17-2024 Patient encounter procedure 06/17/2024 10:30 AM EST Office Visit Orthopaedics [address] [place] [address] Naren Verdugo PA-C [address] [place] [address] 1st post op Rt ankle arthroscopy/internal brace 06/04/24 Orthopaedics Comment on above: 1st post op Rt ankle arthroscopy/interna l brace 06/04/24 Start: 06-12-2024 End: 06-12-2024 ambulatory 06/12/2024 1:45 PM EST Results Only Cardiology [address] [place] [address] Dx: Syncope, unspecified syncope type [R55] Cardiology Comment on above: Dx: Syncope, unspecified syncope type [R 55] Start: 06-12-2024 End: 06-12-2024 Patient encounter procedure Cardiology Comment on above: Dx: Syncope, unspecified syncope type [R 55] Start: 06-10-2024 End: 06-10-2024 Patient encounter procedure 06/10/2024 9:40 AM EST Appointment [facility] [address] [place] [address] [address] [place] [phone] Rosario Mcconnell I, MD [address] [place] [address] [address] [place] [address] ANDREW RESEARCH - CORCARISA [facility] Comment on above: ROHITTANG TONYA - CORCEPT Start: 06-04-2024 End: 06-04-2024 Patient encounter procedure 06/04/2024 9:40 AM EST Office Visit [facility] [address] [place] [address] Milton Fraire, DPM [facility] [address] [place] [address] [facility] Start: 06-04-2024 End: 06-04-2024 Admission to same day surgery center 06/04/2024 7:30 AM EST - 06/04/2024 10:10 AM EST Surgery [facility] Surgery [address] [place] [address] Lydia Kelley DO [address] [place] [address] REPAIR ANKLE LIGAMENT SECONDARY DISRUPTED, COLLATERAL [facility] Comment on above: REPAIR ANKLE LIGAMENT SECONDARY DISRUPTE D, COLLATERAL Start: 06-04-2024 End: 06-04-2024 Repair secondary disrupted ligament ankle coltrl REPAIR ANKLE LIGAMENT SECONDARY DISRUPTED, COLLATERAL Right ankle instability 06/04/2024 7:30 AM EST ME OR Start: 06-04-2024 Subsequent hospital visit by physician 06/04/2024 7:30 AM EST Hospital Encounter [facility] Surgery [address] [place] [address] Lydia Kelley DO [address] [place] [address] 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 Orthopaedics [address] [address] Lydia Kelley, DO [address] [place] [address] 4 week f/u, right ankle Orthopaedics Comment on above: 4 week f/u, right ankle Start: 05-31-2024 End: 05-31-2024 Patient encounter procedure 05/31/2024 9:45 AM EST Office Visit Orthopaedics [address] [address] Lydia Kelley, DO [address] [place] [address] 4 week f/u, right ankle Orthopaedics Comment on above: 4 week f/u, right ankle Start: 05-22-2024 End: 05-22-2024 Patient encounter procedure 05/22/2024 2:30 PM EST Appointment Ambulatory Surgery [address] [place] [address] [place] [address] [place] [address] BRBPR (bright red blood per rectum) [K62.5] Ambulatory Surgery Comment on above: BRBPR (bright red blood per rectum) [K62 .5] Start: 05-15-2024 End: 05-15-2024 Patient encounter procedure [facility] Comment on above: Arrived Start: 05-08-2024 End: 05-08-2024 Patient encounter procedure 05/08/2024 3:10 PM EST Office Visit [facility] [address] [place] [address] Prateek Pedraza DPM [address] [address] [facility] Start: 05-05-2024 End: 05-05-2024 Anesthesia consultation 05/05/2024 11:59 PM EST Anesthesia Event Ambulatory Surgery [address] [place] [address] Sharla Bonds APRN.JUNIOR STAFF ACCOUNTANT [address] [place] [address] Ambulatory Surgery Start: 05-02-2024 End: 05-02-2024 ambulatory 05/02/2024 12:00 PM EST Procedure Gastroenterology [address] [place] [address] fibroscan Gastroenterology Comment on above: fibroscan Start: 05-01-2024 End: 05-01-2024 Patient encounter procedure 05/01/2024 4:30 PM EST Office Visit [facility] [address] [place] [address] Prateek Pedraza DPM [address] [address] [facility] Start: 04-30-2024 End: 04-30-2024 Patient encounter procedure [facility] Comment on above: Arrived Start: 04-26-2024 End: 04-26-2024 Patient encounter procedure 04/26/2024 3:05 PM EST Office Visit Gastroenterology [address] [place] [id number] Iliana Mercado PA-C [address] [place] [address] Elevated LFT, per Pt Gastroenterology Comment on above: Elevated LFT, per Pt Start: 04-26-2024 End: 07-26-2024 Alpha 1 antitrypsin [Mass/volume] in Serum or Plasma [facility] Comment on above: Expected: 04/26/2024, Expires: Start: 04-26-2024 End: 07-26-2024 [id number] [Mass/volume] in Serum or Plasma [facility] Work Phone: Comment on above: Expected: 04/26/2024, Expires: Start: 04-26-2024 End: 07-26-2024 DENY BY IFA WITH REFLEX [facility] Comment on above: Expected: 04/26/2024, Expires: Start: 04-26-2024 End: 07-26-2024 Ceruloplasmin [Mass/volume] in Serum or Plasma [facility] Comment on above: Expected: 04/26/2024, Expires: Start: 04-26-2024 End: 07-26-2024 Hepatitis A virus IgM Ab [Presence] in Serum [facility] Comment on above: Expected: 04/26/2024, Expires: Start: 04-26-2024 End: 07-26-2024 Hepatitis B virus core IgM Ab [Presence] in Serum [facility] Comment on above: Expected: 04/26/2024, Expires: Start: 04-26-2024 End: 07-26-2024 Hepatitis B virus surface Ag [Presence] in Serum [facility] Comment on above: Expected: 04/26/2024, Expires: Start: 04-26-2024 End: 07-26-2024 Hepatitis C virus Ab [Presence] in Serum [facility] Comment on above: Expected: 04/26/2024, Expires: Start: 04-26-2024 End: 07-26-2024 Mitochondria Ab [Presence] in Serum by Immunofluorescence [facility] Comment on above: Expected: 04/26/2024, Expires: Start: 04-26-2024 End: 07-26-2024 Smooth muscle Ab [Presence] in Serum [facility] Comment on above: Expected: 04/26/2024, Expires: Start: 04-03-2024 End: 04-03-2025 Hemoglobin A1c/Hemoglobin.total in Blood Hemoglobin A1c Lab Routine Elevated blood sugar Expected: 04/03/2024 (Approximate), Expires: 04/03/2025 [facility] Comment on above: Expected: 04/03/2024 (Approximate), Expi res: 04/03/2025 Start: 04-03-2024 End: 04-03-2025 MR Shoulder - left WO contrast MR shoulder left wo IV contrast Imaging Routine Acute pain of left shoulder Expected: 04/03/2024, Expires: 04/03/2025 [facility] Comment on above: Expected: 04/03/2024, Expires: Start: 04-03-2024 End: 04-03-2025 Potassium [Moles/volume] in Serum or Plasma Potassium Lab Routine Hypokalemia Expected: 04/03/2024 (Approximate), Expires: 04/03/2025 [facility] Work Phone: Comment on above: Expected: 04/03/2024 (Approximate), Expi res: 04/03/2025 Start: 04-01-2024 End: 04-01-2024 Patient encounter procedure 04/01/2024 8:30 AM EST Office Visit [facility] [address] [facility] [address] [place] [address] Giovani Hagen MD [address] [place] [address] [place] [address] [facility] Start: 03-27-2024 End: 03-27-2024 ambulatory 03/27/2024 4:00 PM EST Treatment [facility] [address] [facility] [address] [place] [address] Zhen Burgess, PT [address] [facility] [address] [place] [address] [facility] Start: 03-25-2024 End: 03-25-2024 ambulatory 03/25/2024 4:00 PM EST Treatment [facility] [address] [facility] [address] [place] [address] Arun Hernadez, CINDY [facility] Start: 03-20-2024 End: 03-20-2024 Patient encounter procedure 03/20/2024 4:00 PM EST Office Visit [facility] [address] [place] [phone] Darwin Starr, [address] [place], [place] [phone] [facility] Start: 03-19-2024 End: 03-19-2024 ambulatory 03/19/2024 4:00 PM EST Treatment [facility] [address] [place] [address] [place] [phone] Anitra Ricci PTA [facility] Start: 03-13-2024 End: 03-13-2024 ambulatory 03/13/2024 4:30 PM EST Treatment [facility] [address] [place] [address] [place] [address] Lupe Zhen Kennedy, PT [address] [place] [address] [place] [address] [facility] Start: 03-11-2024 End: 03-11-2024 ambulatory [facility] Comment on above: Arrived Start: 03-06-2024 End: 03-06-2024 ambulatory [facility] Start: 03-04-2024 End: 03-04-2024 ambulatory 03/04/2024 9:00 AM EST Treatment [facility] [address] [place] [address] [place] [address] Arun Hernadez PTA [facility] Start: 02-29-2024 End: 02-29-2024 ambulatory [facility] Comment on above: Arrived Start: 02-27-2024 End: 02-27-2024 ambulatory [facility] Comment on above: Arrived Start: 02-21-2024 End: 02-21-2024 ambulatory 02/21/2024 4:30 PM EDT Treatment [facility] [address] [facility] [address] [place] [address] Anitra Ricci PTA [facility] Start: 02-14-2024 End: 02-14-2024 ambulatory [facility] Start: 02-13-2024 End: 02-13-2024 Patient encounter procedure Cardiology Comment on above: Dx: Syncope, unspecified syncope type [R 55] Start: 02-13-2024 End: 02-13-2024 ambulatory 02/13/2024 2:00 PM EDT Results Only Cardiology [address] [id number] Dx: Syncope, unspecified syncope type [R55] Cardiology [...] EDT Office Visit [facility] [address] [place] [phone] Darwin Starr DO [address] [facility] [address] [place], [place] [phone] [facility] Start: 01-09-2024 End: 01-09-2024 Patient encounter procedure 01/09/2024 4:00 PM EDT Office Visit [facility] [address] [facility] [address] [place] [address] Giovani Hagen MD [address] [facility] [address] [place] [address] [facility] Start: 01-09-2024 End: 01-08-2025 MR Cervical spine WO contrast MR cervical spine wo contrast Imaging Routine Cervical radiculopathy Expected: 01/09/2024, Expires: 01/08/2025 [facility] Comment on above: Expected: 01/09/2024, Expires: Start: 01-09-2024 End: 01-08-2025 XR Cervical spine 2 or 3 Views XR cervical spine 2 or 3 views Imaging Routine Cervical radiculopathy Expected: 01/09/2024, Expires: 01/08/2025 [facility] Work Phone: Comment on above: Expected: 01/09/2024, Expires: Start: 12-24-2023 Covid-19 Vaccine () Covid-19 Vaccine () [facility] Start: 12-24-2023 Covid-19 Vaccine () Covid-19 Vaccine () [facility] Start: 12-24-2023 Influenza vaccination [facility] Start: 12-19-2023 End: 12-19-2023 ambulatory 12/19/2023 2:15 PM EDT Results Only Cardiology [address] [place] [address] Exertional Syncope. Referring: Dr. Shilo Dillon Cardiology Comment on above: Exertional Syncope. Referring: Dr. Shilo Dillon Start: 12-19-2023 End: 12-19-2023 Patient encounter procedure Cardiology Comment on above: Exertional Syncope. Referring: Dr. Shilo Dillon Start: 04-24-2023 Behavioral Health Screening Behavioral Health Screening [facility] Start: 12-23-2022 Covid-19 Vaccine () Covid-19 Vaccine () [facility] Start: 12-23-2022 Influenza vaccination [facility] Start: 05-13-2022 [facility] Start: 04-24-2022 DEPRESSION ASSESSMENT DEPRESSION ASSESSMENT [facility] Start: 12-28-2021 COVID-19 VACCINE (4 - Booster for Pfizer series) COVID-19 VACCINE (4 - Booster for Pfizer series) [facility] Start: 12-28-2021 COVID-19 VACCINE (4 - Pfizer series) COVID-19 VACCINE (4 - Pfizer series) [facility] Start: 12-23-2021 Influenza vaccination INFLUENZA (#1) [facility] Start: 02-06-2020 Urine microalbumin profile DTaP,Tdap,Td Vaccine (6 - Td or Tdap) [facility] Start: 2018 HPV TESTING HPV TESTING [facility] Start: 2009 PAP TESTING PAP TESTING [facility] Start: 2009 Screening for malignant neoplasm of cervix Cervical Cancer Screening [facility] Start: 09-29-2007 Urine microalbumin profile DTAP,TDAP,TD (1 - Tdap) [facility] Start: 11-30-2006 HPV Vaccine (2 - 3-dose series) HPV Vaccine (2 - 3-dose series) [facility] Start: 2006 Anxiety Screening Anxiety Screening [facility] Start: 2006 Depression Screening Depression Screening [facility] Start: 2006 HEPATITIS C SCREENING HEPATITIS C SCREENING [facility] Start: 2006 Hepatitis C screening Hepatitis C Screening [facility] Start: 2006 HIV SCREENING HIV SCREENING [facility] Start: 2006 HIV screening HIV Screening [facility] Start: 1988 HEPATITIS B (1 of 3 - 3-dose series) HEPATITIS B (1 of 3 - 3-dose series) [facility] Actin smooth muscle IgG Ab [Units/volume] in Serum [facility] Alpha 1 antitrypsin [Mass/volume] in Serum or Plasma [facility] Alpha 1 antitrypsin phenotyping [Identifier] in Serum or Plasma by Immunofixation [facility] Ceruloplasmin [Mass/volume] in Serum or Plasma [facility] End: 05-23-2024 CLOSTRIDIUM DIFFICILE TOXIN BY EIA [facility] Comment on above: ONCE for 1 Occurrences starting 05/23/19 until 05/23/2024 End: 06-26-2023 Ct abdomen & pelvis w/o contrast material CT ABD/PEL WO IVCON Radiology Routine Bilious vomiting with nausea Right sided abdominal pain Nausea 1 Occurrences starting 05/27/2022 until 06/26/2023 [facility] Work Phone: Comment on above: 1 Occurrences starting 05/27/2022 until 06/26/2023 End: 05-14-2025 CT Guidance for core needle biopsy of Liver LIVER BIOPSY NEEDLE Endoscopy Routine ENGLISH (nonalcoholic steatohepatitis) 1 Occurrences starting 05/14/2024 until 05/14/2025 [facility] Work Phone: Comment on above: 1 Occurrences starting 05/14/2024 until 05/14/2025 Cytology Cervical or vaginal smear or scraping study Pap Smear Pathology and Cytology Routine Well woman exam with routine gynecological exam Ordered: 03/20/2024 [facility] Work Phone: Comment on above: Ordered: 03/20/2024 End: 11-01-2024 ECG COMPLETE ECG COMPLETE ECG Routine Gastroparesis 1 Occurrences starting 11/02/2023 until 11/01/2024 [facility] Work Phone: Comment on above: 1 Occurrences starting 11/02/2023 until 11/01/2024 End: 12-18-2024 ECG COMPLETE ECG COMPLETE ECG Routine Syncope and collapse 1 Occurrences starting 12/19/2023 until 12/18/2024 [facility] Work Phone: Comment on above: 1 Occurrences starting 12/19/2023 until 12/18/2024 End: 05-27-2023 EGD DIAGNOSTIC EGD DIAGNOSTIC Endoscopy Routine Bilious vomiting with nausea Right sided abdominal pain 1 Occurrences starting 05/27/2022 until 05/27/2023 [facility] Work Phone: Comment on above: 1 Occurrences starting 05/27/2022 until 05/27/2023 Electrogastrography dx transcutaneous EGG (ELECTROGASTROGRAPHY) Procedures Routine Gastroparesis Ordered: 09/14/2022 [facility] Work Phone: Comment on above: Ordered: 09/14/2022 ENTERIC BACTERIAL PA BELEM BY PCR [facility] Work Phone: Comment on above: Release Upon Ordering for 1 Occurrences starting 05/22/2024 End: 04-26-2025 Flexible sigmoidoscopy study COLONOSCOPY DIAGNOSTIC Endoscopy Routine BRBPR (bright red blood per rectum) 1 Occurrences starting 04/26/2024 until 04/26/2025 [facility] Comment on above: 1 Occurrences starting 04/26/2024 until 04/26/2025 Hepatitis A virus Ab [Presence] in Serum by Immunoassay [facility] HFE gene mutations f ound [Identifier] in Blood or Tissue by Molecular genetics method Nominal [facility] Homogenous nuclear A b pattern [Titer] in Serum [facility] Human papilloma viru s DNA [Presence] in Unspecified specimen by Probe with amplification HPV DNA probe, amplified Microbiology Routine Well woman exam with routine gynecological exam Ordered: 03/20/2024 [facility] Comment on above: Ordered: 03/20/2024 IgG [Mass/volume] in Serum or Plasma [facility] Lipoprotein a [Moles/volume] in Serum or Plasma [facility] Liver ultrasound attenuation by transient elastography DDI VIBRATION CONTROLLED TRANSIENT ELASTOGRAPHY (VCTE) Endoscopy Routine Elevated LFTs Ordered: 04/26/2024 [facility] Comment on above: Ordered: 04/26/2024 Mitochondria M2 IgG Ab [Units/volume] in Serum [facility] Nuclear Ab [Titer] i n Serum [facility] OUTSIDE VENDOR CARDI AC OUTPATIENT EXTENDED RHYTHM RECORDING (WITHOUT TELEMETRY) OUTSIDE VENDOR CARDIAC OUTPATIENT EXTENDED RHYTHM RECORDING (WITHOUT TELEMETRY) Holter Routine Syncope, unspecified syncope type Ordered: 12/19/2023 [facility] Comment on above: Ordered: 12/19/2023 End: 12-18-2024 STRESS ECHO TREADMILL STRESS ECHO TREADMILL Cardiology Routine Syncope, unspecified syncope type 1 Occurrences starting 12/19/2023 until 12/18/2024 [facility] Work Phone: Comment on above: 1 Occurrences starting 12/19/2023 until 12/18/2024 SURGICAL PATHOLOGY [facility] Comment on above: Release Upon Ordering for 1 Occurrences starting 05/22/2024, 1 completed End: 07-14-2023 Us abdominal real time w/image limited US ABD RT UPPER QUADRANT Radiology Routine Liver lesion 1 Occurrences starting 06/14/2022 until 07/14/2023 [facility] Work Phone: Comment on above: 1 Occurrences starting 06/14/2022 until 07/14/2023 [facility] Immunizations Immunization Date Immunization Notes Care Provider Fa rancho 11-02-2021 SARS-CoV-2 mRNA (vwjkmmbynby-wloo-vpwpc se) vaccine Madhuri MISHRA [facility] 04-29-2021 SARS-CoV-2 (COVID-19 ) mRNA BNT-162b2 vax Madhuri MISHRA [facility] 03-03-2021 SARS-CoV-2 (COVID-19 ) mRNA BNT-162b2 vax Madhuri infibond [facility] Comment on above: Result Comment: 2022: TPVAL 02-09-2021 influenza virus vaccine, unspecified formulation Madhuri MISHRA [facility] 02-09-2021 influenza, injectabl e, quadrivalent, preservative free Zhen Blackston PT Work Phone: [facility] 03-16-2020 influenza virus vaccine, unspecified formulation Madhuri infibond [facility] 03-16-2020 Influenza, injectabl e, Madin Jenn Canine Kidney, preservative free, quadrivalent Zhen Blackston PT Work Phone: [facility] 01-08-2018 influenza virus vaccine, unspecified formulation Madhuri infibond [facility] 01-08-2018 influenza, injectabl e, quadrivalent, contains preservative Zhen Blackston PT Work Phone: [facility] 01-08-2018 influenza, injectabl e, quadrivalent, preservative free Zhen Blackston PT Work Phone: [facility] 02-01-2017 influenza virus vaccine, unspecified formulation Madhuri infibond [facility] 02-01-2017 Influenza, injectabl e, Madin [place] Canine Kidney, preservative free, quadrivalent Zhen Blackston PT Work Phone: [facility] 03-25-2016 influenza virus vaccine, unspecified formulation Madhuri MISHRA [facility] 03-25-2016 influenza, injectabl e, quadrivalent, preservative free Zhen Blackston PT Work Phone: [facility] 02-05-2010 tetanus toxoid, redu rolanda diphtheria toxoid, and acellular pertussis vaccine, adsorbed Madhuri MISHRA [facility] 01-05-2007 hepatitis B vaccine, pediatric or pediatric/adolescent dosage Madhuri MISHRA [facility] 11-02-2006 hepatitis B vaccine, pediatric or pediatric/adolescent dosage Madhuri MISHRA [facility] 11-02-2006 HPV, unspecified formulation Madhuri MISHRA [facility] 11-02-2006 human papilloma viru s vaccine, quadrivalent Zhenben Burgess PT Work Phone: [facility] 11-02-2006 meningococcal ACWY vaccine, unspecified formulation Madhuri MISHRA [facility] 11-02-2006 meningococcal polysaccharide (groups A, C, Y and W-135) diphtheria toxoid conjugate vaccine (MCV4P) Zhen Burgess PT Work Phone: [facility] 02-20-1998 hepatitis B vaccine, pediatric or pediatric/adolescent dosage Madhuri MISHRA [facility] 12-28-1993 diphtheria, tetanus toxoids and pertussis vaccine Zhen Burgess PT Work Phone: [facility] 12-07-1992 diphtheria, tetanus toxoids and pertussis vaccine Zhen Burgess PT Work Phone: [facility] 12-07-1992 measles, mumps and rubella virus vaccine Madhuri MISHRA [facility] 12-07-1992 trivalent poliovirus vaccine, live, oral Zhen Burgess PT Work Phone: [facility] 06-09-1992 diphtheria, tetanus toxoids and pertussis vaccine Zhen Burgess PT Work Phone: [facility] 06-09-1992 measles, mumps and rubella virus vaccine Madhuri MISHRA [facility] 06-09-1992 trivalent poliovirus vaccine, live, oral Zhen Burgess PT Work Phone: [facility] 10-31-1990 varicella virus vaccine Patr homer MISHRA [facility] 06-20-1990 diphtheria, tetanus toxoids and pertussis vaccine Zhen Burgess PT Work Phone: [facility] 05-21-1990 trivalent poliovirus vaccine, live, oral Zhen Burgess PT Work Phone: [facility] 01-10-1989 trivalent poliovirus vaccine, live, oral Zhen Burgess PT Work Phone: [facility] NEGATED: Highlighted row has not occurred!05-01-2019 influenza virus vaccine, live, attenuated, for intranasal use Madhuri MISHRA [facility] NEGATED: Highlighted row has not occurred!04-03-2019 influenza virus vaccine, live, attenuated, for intranasal use Madhuri MISHRA [facility] Payers Date Payer Category Payer Private Health Insurance [employer] [id number] 2022 [facility] [id number] 2020 Unknown [id number]. [id number] 1988 Unknown [id number] 2.16.840.1.027003.3.579.2. 182 1988 Unknown [id number] 2.16.840.1.396477.3.579.2. 593 1988 Unknown [id number] 2.16.840.1.744910.3.579.2. 593 1988 Unknown [id number] 2.16.840.1.327760.3.579.2. 593 1988 Unknown [id number] 2.16.840.1.276279.3.579.2. 593 1988 Unknown [id number] 2.16.840.1.555377.3.579.2. 593 1988 Unknown [id number] 2.16.840.1.988248.3.579.2. 593 1988 Unknown [id number] 2.16.840.1.434421.3.579.2. 593 1988 Unknown [id number] 2.16.840.1.621224.3.579.2. 593 1988 Unknown [id number] 2.16.840.1.117548.3.579.2. 593 1988 Unknown [id number] 2.16.840.1.384964.3.579.2. 593 1988 Unknown [id number] 2.16.840.1.483733.3.579.2. 593 1988 Unknown [id number] 2.16.840.1.061860.3.579.2. 593 1988 Unknown [id number] 2.16.840.1.287800.3.579.2. 593 1988 Unknown [id number] 2.16.840.1.052721.3.579.2. 177 1988 Unknown [id number] 2.16.840.1.157647.3.579.2. 727 1988 Unknown [id number] 2.16840.1.865524.3.579.2. 727 1988 Unknown [id number] 2.16840.1.476402.3.579.2. 1258 1988 Unknown [id number] 2.16840.1.867388.3.579.2. 1258 1988 Unknown [id number] 2.16840.1.942653.3.579.2. 1258 1988 Unknown [id number] 2.840.1.203524.3.579.2. 1258 1988 Unknown [id number] 2.16840.1.828207.3.579.2. 1258 1988 Unknown [id number] 2.16840.1.669520.3.579.2. 1258 1988 Unknown [id number] 2.16840.1.022445.3.579.2. 1258 1988 Unknown [id number] 2.16840.1.107845.3.579.2. 1258 1988 Unknown [id number] 2.16840.1.918811.3.579.2. 1258 1988 Unknown [id number] 2.16840.1.376787.3.579.2. 1258 1988 Unknown [id number] 2.16.840.1.973704.3.579.2. 1258 1988 Unknown [id number] 2.16840.1.793530.3.579.2. 1258 1988 Unknown [id number] 2.16.840.1.382740.3.579.2. 1258 1988 Unknown [id number] 2.16.840.1.089393.3.579.2. 1258 1988 Unknown [id number] 2.16.840.1.444416.3.579.2. 1258 1988 Unknown [id number] 2.16.840.1.054054.3.579.2. 1258 1988 Unknown [id number] 2.16.840.1.011112.3.579.2. 1258 1988 Unknown [id number] 2.16.840.1.063660.3.579.2. 1258 1988 Unknown [id number] 2.16.840.1.335732.3.579.2. 1258 1988 Unknown [id number] 2.16.840.1.278780.3.579.2. 1258 1988 Unknown [id number] 2.16.840.1.142204.3.579.2. 1258 1988 Unknown [id number] 2.16.840.1.162246.3.579.2. 1258 1988 Unknown [id number] 2.16.840.1.190072.3.579.2. 1258 1988 Unknown [id number] 2.16840.1.422992.3.579.2. 1258 1988 Unknown [id number] 2.16.840.1.164770.3.579.2. 1258 1988 Unknown [id number] 2.16.840.1.728074.3.579.2. 1258 1988 Unknown [id number] 2.16.840.1.805255.3.579.2. 9 1959 Unknown [id number] Unknown 100 [facility] [id number] Unknown [id number] 2.16.840.1.505639.3.579.2. 531 Unknown [id number] 2.16.840.1.147773.3.579.2. 531 Social History Date Type Detail Facility Tobacco smoking stat us NHIS Unknown if ever smoked [facility] Work Phone: Start: 1990 Sex Assigned At Female [facility] Start: 03-28-2019 End: 05-27-2022 Tobacco smoking status NHIS Never smoked tobacco [facility] Start: 05-27-2022 End: 05-01-2023 Tobacco use and exposure Smokeless tobacco non-user [facility] Start: 05-27-2022 End: 05-22-2024 Alcohol intake Current drinker of alcohol (finding) [facility] Start: 03-28-2019 Alcohol Comment socially [facility] Start: 1990 Sex Assigned At Not on file [facility] Start: 10-17-2022 End: 11-02-2022 Sex Assigned At [facility] Start: 06-29-2022 End: 05-01-2023 Tobacco smoking status Ex-smoker (finding) [facility] Tobacco smoking status Never [facility] Start: 10-17-2022 End: 11-02-2022 History of Social function [facility] Start: 06-08-2021 Gender identity Identifies as female gender (finding) [facility] Start: 11-16-2021 End: 11-26-2021 Exposure to SARS-CoV-2 (event) Not sure [facility] History of tobacco use Current smoker [facility] Within the last year , have you been afraid of your partner or ex-partner? No [facility] Do you belong to any clubs or organizations such as yarsanism groups, unions, fraternal or athletic groups, or [...] Functional Status N/A [facility] 06-30-2022 Functional Status N/A [facility] Clinical Notes 05-03-2022 to 05-23-2024 Telephone Encounter - Benito Soriano RN - 05/23/2024 3:25 PM ESTTelephone Encounter - Benito Soriano RN - 05/23/2024 3:25 PM Carol Pichardo MD - 05/22/2024 2:00 PM ESTPatient Instructions Note Date & Type Note Facility 05-23-2024 Telephone encounter Note ----- Message from Iliana Mercado PA-C sent at 05/23/2024 3:18 PM EST ----- Please provide information on precautions and information regarding Cdiff. Thank you Iliana Mercado PA-C ----- Message ----- From: Carol Winn MD Sent: 05/23/2024 2:44 PM EST To: FARNAZ Mohr, your stool is positive for C.diff I sent a script for vancomycin to take for 2 weeks. A script is sent Iliana, patient had Diarrhea for 2-3 weeks. Had bronchitis prior to that and was given steroids and antibiotics. Stool sample was collected during the colonoscopy Please Iliana send the patient information about c.diff and precautions to follow Carol Winn MD [facility] 05-23-2024 Miscellaneous Notes ----- Message from Iliana Mercado PA-C sent at 05/23/2024 3:18 PM EST ----- Please provide information on precautions and information regarding Cdiff. Thank you Iliana Mercado PA-C ----- Message ----- From: Carol Winn MD Sent: 05/23/2024 2:44 PM EST To: FARNAZ Mohr Milly, your stool is positive for C.diff I sent a script for vancomycin to take for 2 weeks. A script is sent Iliana, patient had Diarrhea for 2-3 weeks. Had bronchitis prior to that and was given steroids and antibiotics. Stool sample was collected during the colonoscopy Please Iliana send the patient information about c.diff and precautions to follow Carol Winn MD documented in this encounter [facility] 05-22-2024 History and physical note SEDATION HISTORY AND PHYSICAL EXAM SERVICE DATE: 05/22/2024 SERVICE TIME: 1:39 PM Subjective HPI: This is a 33 year old female who presents with rectal bleeding PAST ANESTHESIA HISTORY: No history of adverse event PAST MEDICAL HISTORY Diagnosis Date Asthma Bipolar disorder (HCC) Diverticulitis 2018 Hypertension IBS (irritable bowel syndrome) PAST SURGICAL HISTORY Procedure Laterality Date SECTION HX COLONOSCOPY 04/2018 IBS-c COLONOSCOPY SCREENING 2019 EGD DIAGNOSTIC 2022 HYSTEROSCOPY, DIAGNOSTIC (SEPARATE Prior to Admission medications as of 05/22/24 1338 Medication Sig Last Dose Taking Phentermine HCl 37.5 mg tablet Take 37.5 mg by mouth. 05/21/2024 at 0700 Yes escitalopram oxalate (LEXAPRO) 20 mg tablet Take 20 mg by mouth every morning. 05/22/2024 at 0800 Yes amphetamine-dextroamphetamine XR (ADDERALL XR) 30 mg capsule Take 30 mg by mouth once daily. 05/21/2024 at 0800 Yes ALPRAZolam (XANAX) 0.5 mg tablet Take 0.25 mg by mouth two times a day. 05/21/2024 at 2100 Yes cariprazine (VRAYLAR) 4.5 mg capsule Take 4.5 mg by mouth once daily. 05/21/2024 at 2100 Yes montelukast (SINGULAIR) 10 mg tablet Take 10 mg by mouth daily at bedtime. fluticasone/umeclidin/vilanter (TRELEGY ELLIPTA INHALATION) Inhale as instructed. ALLERGIES Allergen Reactions Iv Contrast [Iodine] Swelling, [...] Regular rhythm,Regular rate Assessment/Plan ASA Class: ASA Class: Patient with mild systemic disease Active Problems: Rectal bleeding Provisional Diagnosis/Treatment Plan: Colonoscopy Procedure was discussed with the patient including risks of oversedation, bleeding, and perforation. Patient agreed to proceed. Sedation Goal: Anesthesia SIGNATURE: Carol Winn MD PATIENT NAME: Orion Harper DATE: May 22, 2024 TIME: 1:39 PM [facility] Work Phone: 05-22-2024 History and physical note SEDATION HISTORY AND PHYSICAL EXAM SERVICE DATE: 05/22/2024 SERVICE TIME: 1:39 PM Subjective HPI: This is a 33 year old female who presents with rectal bleeding PAST ANESTHESIA HISTORY: No history of adverse event PAST MEDICAL HISTORY Diagnosis Date Asthma Bipolar disorder (HCC) Diverticulitis 2017 Hypertension IBS (irritable bowel syndrome) PAST SURGICAL HISTORY Procedure Laterality Date SECTION HX COLONOSCOPY 04/2018 IBS-c COLONOSCOPY SCREENING 2019 EGD DIAGNOSTIC 2022 HYSTEROSCOPY, DIAGNOSTIC (SEPARATE Prior to Admission medications as of 05/22/24 1338 Medication Sig Last Dose Taking Phentermine HCl 37.5 mg tablet Take 37.5 mg by mouth. 05/21/2024 at 0700 Yes escitalopram oxalate (LEXAPRO) 20 mg tablet Take 20 mg by mouth every morning. 05/22/2024 at 0800 Yes amphetamine-dextroamphetamine XR (ADDERALL XR) 30 mg capsule Take 30 mg by mouth once daily. 05/21/2024 at 0800 Yes ALPRAZolam (XANAX) 0.5 mg tablet Take 0.25 mg by mouth two times a day. 05/21/2024 at 2100 Yes cariprazine (VRAYLAR) 4.5 mg capsule Take 4.5 mg by mouth once daily. 05/21/2024 at 2100 Yes montelukast (SINGULAIR) 10 mg tablet Take 10 mg by mouth daily at bedtime. fluticasone/umeclidin/vilanter (TRELEGY ELLIPTA INHALATION) Inhale as instructed. ALLERGIES Allergen Reactions Iv Contrast [Iodine] Swelling, [...] Regular rhythm,Regular rate Assessment/Plan ASA Class: ASA Class: Patient with mild systemic disease Active Problems: Rectal bleeding Provisional Diagnosis/Treatment Plan: Colonoscopy Procedure was discussed with the patient including risks of oversedation, bleeding, and perforation. Patient agreed to proceed. Sedation Goal: Anesthesia SIGNATURE: Carol Winn MD PATIENT NAME: Orion Harper DATE: May 22, 2024 TIME: 1:39 PM documented in this encounter [facility] 05-22-2024 Nurse Note PRE OP LEARNING ASSESSMENT PROCEDURE/SURGERY: GI PROCEDURES: Colonoscopy READINESS TO LEARN COGNITIVE ABILITY: Alert and oriented MOTIVATION TO LEARN: Eager Interested FAMILY SUPPORT: High - Very involved in pt care PATIENT LEARNS BEST BY: Individual Instruction Verbal Instruction FACTORS AFFECTING LEARNING: None PHYSICAL LIMITATIONS AFFECTING LEARNING: None Electronically Signed By: Lindsey Buckley RN In Department: AMBULATORY SURGERY [facility] 05-22-2024 Nurse Note PRE OP LEARNING ASSESSMENT PROCEDURE/SURGERY: GI PROCEDURES: Colonoscopy READINESS TO LEARN COGNITIVE ABILITY: Alert and oriented MOTIVATION TO LEARN: Eager Interested FAMILY SUPPORT: High - Very involved in pt care PATIENT LEARNS BEST BY: Individual Instruction Verbal Instruction FACTORS AFFECTING LEARNING: None PHYSICAL LIMITATIONS AFFECTING LEARNING: None Electronically Signed By: Lindsey Buckley RN In Department: AMBULATORY SURGERY documented in this encounter [facility] 05-15-2024 Telephone encounter Note Appts cxl, surgery notified to cxl. [facility] 05-15-2024 Miscellaneous Notes Appts cxl, surgery notified [...] Lydia Kelley DO documented in this encounter [facility] 05-15-2024 History of Present illness Narrative Images [...] attenuation of the anterior [place] [address] Magnetic Resonance Report Signed Patient: ORION HARPER MR#: [id number] : 1990 Acct:[id number] Age/Sex: 33 / F ADM Date: 03/14/24 Loc: MRI Attending Dr: Laurie Trujillo M.D. Ordering Physician: Laurie Trujillo M.D. Date of Service: 03/14/24 Procedure(s): MR ankle RT wo con Accession Number(s): [id number] cc: GIOVANI HAGEN ; Laurie Trujillo M.D. [facility] [place] [address] Patient Name: ORION HARPER MRN: [facility]:[id number] date: 1990 Sex: F Assigned Patient Location: MRI Current Patient Location: Accession/Order Number: [id number] Exam Date: 03/14/2024 15:04 Report Date: 03/17/2024 [...] THE MORNING, Disp: 30 tablet, Rfl: 2 Lgjlysrskbm-Vbwnzrkbm-Qrtgld 100-62.5-25 MCG/ACT aerosol powder , Inhale 1 [...] are palpable bilateral, no edema noted Neuro: [facility] [place] 5.07 monofilament intact, vibratory sensation intact Derm: [...] procedure. JASON Conti documented in this encounter [facility] 05-10-2024 Telephone encounter Note Pt was seen. OARRS reviewed, Rx sent into patient's pharmacy. [facility] 05-10-2024 Miscellaneous Notes Pt was seen. OARRS reviewed, Rx sent into patient's pharmacy. Patient has appointment today. documented in this encounter [facility] 05-09-2024 History of Present illness Narrative Images [...] DAY IN THE MORNING 30 tablet 2 Phogxdhizfw-Rzonydycq-Mslfcg 100-62.5-25 MCG/ACT aerosol powder Inhale 1 puff [...] CT ANGIOGRAM CHEST 07/30/2018 CT ANGIOGRAM CHEST [facility] DATA LEGACY EGD 06/30/2022 Normal hypopharynx, normal [...] of spine - Primary Relevant Medications HYDROcodone-acetaminophen (Ramer) 5-325 MG tablet Other Relevant Orders Ambulatory referral to Pain Medicine No follow-ups on file. documented in this encounter [facility] 05-09-2024 Telephone encounter Note Patient has appointment today. [facility] 05-08-2024 History of Present illness Narrative Patient: [...] with cardiac clearance and was cleared by Dr. Was unable to do surgery. Patient also [...] THE MORNING, Disp: 30 tablet, Rfl: 2 Gbubkgvjpdi-Aohnadeuh-Vwnmuq 100-62.5-25 MCG/ACT aerosol powder , Inhale 1 [...] 0 min Stress: Stress Concern Present (04/18/2023) [employer] [place] [employer] - Occupational Stress Questionnaire Feeling of Stress : Very much Social Connections: Moderately Integrated (04/18/2023) Social Connection and Isolation Panel [NHANES] Frequency of Communication with Friends and Family: Three times a week Frequency of Social Gatherings with Friends and Family: Twice a week Attends Protestant Services: Never Active Member of Clubs or [...] base of the right foot MRI: [place] [address] Magnetic Resonance Report Signed Patient: ORION HARPER MR#: [id number] : 1990 Acct:[id number] Age/Sex: 33 / F ADM Date: 03/14/24 Loc: MRI Attending Dr: Laurie Trujillo M.D. Ordering Physician: Laurie Trujillo M.D. Date of Service: 03/14/24 Procedure(s): MR ankle RT wo con Accession Number(s): [id number] cc: GIOVANI HAGEN ; Laurie Trujillo M.D. [facility] [place] [address] Patient Name: ORION HARPER MRN: [facility]:[id number] date: 1990 Sex: F Assigned Patient Location: MRI Current Patient Location: Accession/Order Number: [id number] Exam Date: 03/14/2024 15:04 Report Date: 03/17/2024 [...] for possible surgical intervention by Dr. Milton rFaire. Patient was originally scheduled for an ankle arthroscopy as well as peroneal tendon repair to the right ankle. Some discussion of stabilization of the right ankle as well for ankle stabilization procedure. Patient is scheduled for follow up with Dr. Kwon today for possible surgical intervention as deemed necessary if warranted. Prateek Pedraza DPM documented in this encounter [facility] 05-06-2024 Telephone encounter Note Echo was faxed to Anne-Marie @ [phone] & scanned into outside ep. Patient is having a procedure. Criss Mccrary [facility] 05-06-2024 Miscellaneous Notes Echo was faxed to Anne-Marie @ [phone] & scanned into outside ep. Patient is having a procedure. Criss Mccrary documented in this encounter [facility] 05-03-2024 Telephone encounter Note Patient has sig [...] seen at that time. Lydia Kelley DO [facility] 05-02-2024 Note HNO ID: [id number] Author: ZEHRA GRAY PA-C Service: ? Author Type: Physician Hot Billet Shear Operator Type: Progress Notes Filed: 05/02/2024 11:34 Note [...] and referral to hepatology. Zehra Gray PA-C MASLD Fibroscan Fibrosis Risk <7 kPA = F0-F2 [...] Int J Clin Exp Med. 2015 Jan 15;8(10):74786-58. PMID: 37732359; PMCID: [id number]. Ruthann M, Juan FANTASMA, Daler-[place] M, Cosmo F, Tawnya J, Everardo O, Leyla F, Franci M, Alejandro G, Dorie A, Gianna E, Leyla L, French G, Kashmir A, Spiceland U, Zapata S, Franc P, Lucilao V, de Kole V, Leena M, Neo MARIE. Refining the Baveno elastography criteria for the definition of compensated advanced chronic liver disease. J Hepatol. 2020;74(5):5107-2053. doi: 10.1016/j.jhep.2020.11.050. Epub 2019Apr 01. PMID: 66119725. Izabel Bob, Chastity Moran, Martha Bob, Xiao Bob, Joon S, Nuria Roth, Trevin Roth, Trixie Kendrick. AASLD practice guidance on the clinical assessment and management of nonalcoholic fatty liver disease. Hepatology. 2022;77(5):9078-8393. doi:10.1097/HEP.[id number] [facility] 05-02-2024 History of Present illness Narrative [...] and referral to hepatology. Zehra Gray PA-C [facility] Fibroscan Fibrosis Risk <7 kPA = F0-F2 [...] Int J Clin Exp Med. 2015 Jan 15;8(10):95078-83. PMID: 10018622; PMCID: [id number]. Ruthann Bob, Juan MEEK, Rico Bob, Cosmo F, Tawnya J, Everardo O, Leyla F, Franci M, Alejandro G, Dorie A, Gianna E, Leyla L, French G, Kashmir A, Vicente U, Jodi S, Franc P, Max V, Last V, Leena M, Neo MARIE. Refining the Baveno elastography criteria for the definition of compensated advanced chronic liver disease. J Hepatol. 2020;74(5):5317-2463. doi: 10.1016/j.jhep.2020.11.050. Epub 2019Apr 01. PMID: 47318883. Izabel Bob, Chastity Moran, Martha Bob, Xiao Bob, Joon S, Nuria Roth, Trevin Roth, Trixie Kendrick. AASLD practice guidance on the clinical assessment and management of nonalcoholic fatty liver disease. Hepatology. 2022;77(5):1372-0909. doi:10.1097/HEP.[id number] documented in this encounter [facility] 04-30-2024 History of Present illness Narrative Reason [...] on 05/23/[address] Starr at [facility]. MEDICATIONS Current Outpatient Medications Medication Instructions albuterol [...] escitalopram (LEXAPRO) 20 mg, Oral, Every morning Xixbacqowat-Ivdvbglzl-Pybhxs 100-62.5-25 MCG/ACT aerosol powder 1 puff, Inhalation, [...] Attention deficit hyperactivity disorder, predominantly inattentive type ([facility]) 09/23/2022 Bipolar disorder, in partial remission, most recent episode manic ([facility]) 09/23/2022 Diverticular disease of colon 09/23/2022 Dysphagia 09/23/2022 Elevated liver enzymes 09/23/2022 Exercise induced bronchospasm ([facility]) 09/23/2022 Finding of above normal blood pressure 09/23/2022 History of hysterectomy 09/23/2022 Hyperglycemia 09/23/2022 Hypersexuality 09/23/2022 Insomnia 09/23/2022 Irritable bowel syndrome with constipation 09/23/2022 Mild intermittent asthma without complication ([facility]) 09/23/2022 Mood swings 09/23/2022 Nephrolithiasis 09/23/2022 Nonalcoholic steatohepatitis (ENGLISH) 09/23/2022 Other specified abnormal findings of blood chemistry 09/23/2022 Poor concentration 09/23/2022 Sacroiliitis, not elsewhere classified ([facility]) 09/23/2022 Skin pain 09/23/2022 Thyroid enlargement ([facility]) 09/23/2022 Atherosclerosis of aorta ([facility]) 06/16/2020 Atherosclerosis of both carotid arteries 11/16/2020 Atherosclerosis of coronary artery without angina pectoris ([facility]) 05/18/2021 Gastroesophageal reflux disease without esophagitis 07/09/2019 Gastroparesis 11/02/2022 Non-refractory idiopathic generalized epilepsy ([facility]) 11/22/2019 Osteoarthritis of knee 06/14/2019 Hypercholesterolemia ([facility]) 07/01/2021 Recurrent UTI 12/12/2022 Vitamin D deficiency 05/16/2019 Dizziness 12/13/2022 Acute nonintractable headache 12/13/2022 History of COVID-19 02/06/2023 Overweight 02/06/2023 Acute biliary pancreatitis without infection or necrosis 03/21/2023 Calculus of gallbladder without cholecystitis without obstruction 03/23/2023 Cholecystitis 04/18/2023 Encounter for postoperative care 04/18/2023 History of acute pancreatitis 04/18/2023 History of cholecystectomy 04/18/2023 Cough 04/18/2023 Anaphylactic syndrome 04/18/2023 PTSD (post-traumatic stress disorder) ([facility]) 02/24/2015 Tinea 10/03/2023 Weight gain 10/03/2023 Glucose intolerance 10/03/2023 Dyshidrosis 10/03/2023 Encounter for well adult exam without abnormal findings 12/04/2023 Cervical radiculopathy 12/26/2023 Obesity (BMI 35.0-39.9 without comorbidity) 02/06/2024 Localized edema 02/06/2024 Injury of right ankle 02/06/2024 Sprain of anterior talofibular ligament of right ankle 04/01/2024 Pain and swelling of left shoulder 04/03/2024 Asthmatic bronchitis with acute exacerbation (CMS/HCC) 04/16/2024 Snoring 04/16/2024 Resolved Ambulatory Problems Diagnosis [...] nursing note reviewed. Exam conducted with a radioisotope technician present. Vitals: Estimated body mass index is 35.12 kg/m as calculated from the following: Height as of 04/16/24: 5' 2 . Weight as of this [...] reviewed, and patient is to proceed to [facility] OR. Follow Up: Patient is to follow up between 1-2 weeks post operative to assess proper healing and recovery from procedure. Documented by Sandy Toribio LPN on behalf of: Darwin Starr DO documented in this encounter [facility] 04-26-2024 History of Present illness Narrative DEPARTMENT OF GASTROENTEROLOGY - FOLLOW UP REASON FOR VISIT Orion Harper is a 33 year old female who is scheduled for follow up of elevated LFTs HISTORY OF PRESENT ILLNESS Orion Harepr is a 33 year old female who presents today for follow up of elevated LFTs. Patient reports she has had elevated liver enzymes for the past several years. She reports she saw Dr. Hylton in 2021 in [facility]. She was told fibroscan was F1 fibrosis [...] Pertinent Workup to Date: 05/[address] Winn ASSESSMENT/PLAN: 1. Fatty liver - ICD9: 571.8, [...] follow up with Dr. Hylton who is marine equipment research engineer We discussed seeing endocrinology to help [...] Iliana Mercado PA-C documented in this encounter [facility] 04-26-2024 Note HNO ID: [id number] Author: ILIANA MERCADO PA-C Service: ? Author Type: Physician Hot Billet Shear Operator Type: Progress Notes Filed: 04/26/2024 15:02 Note [...] she saw Dr. Hylton in 2021 in [facility]. She was told fibroscan was F1 fibrosis [...] Pertinent Workup to Date: 05/[address] Winn ASSESSMENT/PLAN: 1. Fatty liver - ICD9: 571.8, [...] follow up with Dr. Hylton who is marine equipment research engineer We discussed seeing endocrinology to help [...] I have pers (more content not included)... [facility] 04-26-2024 Instructions Iliana Mercado PA-C - [...] do not hesitate to send me a Orteq message or call. Iliana Mercado PA-C documented in this encounter [facility] 04-26-2024 Note HNO ID: [id number] Author: LYDIA KELLEY, DO Service: ? Author [...] to discuss consent (more content not included)... [facility] 04-26-2024 History of Present illness Narrative [...] Kelley D.O. M.P.H. documented in this encounter [facility] 04-22-2024 Telephone encounter Note Patient states she was seen in office on 04-16 and then later in the week she ended up at the Urgent Care due to her cough. She would like Eva Tom called in for her cough. [facility] 04-22-2024 Miscellaneous Notes Patient states she was seen in office on 04-16 and then later in the week she ended up at the Urgent Care due to her cough. She would like Eva Pearls called in for her cough. documented in this encounter [facility] 04-18-2024 History of Present illness Narrative Images from the original note were not included. [address] , [address] [facility], [address] P: [phone] F: [phone] HPI Historian of HPI: patient Orion Harper [...] tablet; Refill: 0 documented in this encounter [facility] 04-08-2024 Telephone encounter Note For surgical clearance [...] she is unable to do the treadmill [facility] Work Phone: 04-08-2024 Miscellaneous Notes For surgical [...] do the treadmill documented in this encounter [facility] 04-05-2024 Telephone encounter Note Outside ep I have a copy @ my desk Criss Mccrary [facility] 04-05-2024 Miscellaneous Notes Outside ep I have a copy @ my desk Criss Mccrary documented in this encounter [facility] 04-03-2024 History of Present illness Narrative Images [...] DAY IN THE MORNING 30 tablet 2 Phyjhqmkmfd-Wgbxfqbsz-Fcfrjm 100-62.5-25 MCG/ACT aerosol powder INHALE 1 PUFF [...] Diabetes Maternal Grandmother Analia Accidental Brother Jose Natonio Meredith Past Medical History: Diagnosis Date Abnormal computed [...] follow-ups on file. documented in this encounter [facility] 04-02-2024 Telephone encounter Note This 'Ankle Surgery Clearance' was faxed over to Dr. Giovani Hagen (PCP) @ [phone] for signing. I spoke with the patient. Scanned into outside ep. Criss Mccrary [facility] 04-02-2024 Miscellaneous Notes This 'Ankle Surgery Clearance' was faxed over to Dr. Giovani Hagen (PCP) @ [phone] for signing. I spoke with the patient. Scanned into outside ep. Criss Mccrary documented in this encounter [facility] 04-01-2024 Miscellaneous Notes Pt called to schedule, [...] follow up with Dr. Hylton who is marine equipment research engineer We discussed seeing endocrinology to help with weight loss and insulin resistance We also discussed cutting back on ETOH to one drink a week (currently 3-4 drinks a week) Did she follow up with Dr. Hylton? She can schedule OV with me if she prefers Dr. Winn, Pt JESSE Dx Fatty Liver, Liver Disease PT sent MYC message requesting a follow up labs show elevated LFTs and wanted them reviewed Please advise Thanks, Connie Lucas, RN contains abnormal data [facility] LIVER PANEL Component Ref Range & Units [...] ALBUMIN GLOBULIN RATIO 1.3 ontains abnormal data [facility] LIVER PANEL Component Ref Range & Units [...] - 29 U/L 72 High Lipase Order: [id number] Component Ref Range & Units 1 yr ago Lipase 13 - 60 U/L 260 High Hepatic Function Panel Order: [id number] Component Ref Range & Units 1 yr [...] g/dL 5.7 Low Hepatic Function Panel Order: [id number] Component Ref Range & Units 1 yr [...] ntains abnormal data COMPREHENSIVE METABOLIC PANEL Order: [id number] Component Ref Range & Units 1 yr [...] Filt Rate >60 mL/min/1.73m2 >60 Lipase Order: [id number] Component Ref Range & Units 1 yr [...] follow up with Dr. Hylton who is marine equipment research engineer We discussed seeing endocrinology to help [...] XR CHEST 2V FRONTAL/LAT Carol Winn MD documented in this encounter [facility] 04-01-2024 Telephone encounter Note Pt called to schedule, per message below. First Est slot is July 26 for VV. Please review and advise if a New Pt slot can be used for this Pt. Thank you, [facility] 04-01-2024 History of Present illness Narrative Associated Problem(s): Mild intermittent asthma without complication (CMS/HCC) Debbie Hendersonulair Associated Problem(s): Tremors of nervous system Avoid [...] DAY IN THE MORNING 30 tablet 2 Siwqgqwqurl-Owyeiorlc-Lkraxe 100-62.5-25 MCG/ACT aerosol powder INHALE 1 PUFF [...] follow-ups on file. documented in this encounter [facility] 03-29-2024 Telephone encounter Note I saw her in the past for this Per my note, Was seen by Dr. Hylton locally Will obtain labs and fibroscan results She had Nausea and vomiting with statin Couldn't tolerate metformin due to nausea/vomiting and diarrhea She can still follow up with Dr. Hylton who is marine equipment research engineer We discussed seeing endocrinology to help with weight loss and insulin resistance We also discussed cutting back on ETOH to one drink a week (currently 3-4 drinks a week) Did she follow up with Dr. Hylton? She can schedule OV with me if she prefers [facility] Work Phone: 03-29-[address] Winn, Pt JESSE Dx Fatty Liver, Liver Disease PT sent MYC message requesting a follow up labs show elevated LFTs and wanted them reviewed Please advise Thanks, Connie Lucas RN contains abnormal data [facility] LIVER PANEL Component Ref Range & Units [...] ALBUMIN GLOBULIN RATIO 1.3 ontains abnormal data [facility] LIVER PANEL Component Ref Range & Units [...] - 29 U/L 72 High Lipase Order: [id number] Component Ref Range & Units 1 yr ago Lipase 13 - 60 U/L 260 High Hepatic Function Panel Order: [id number] Component Ref Range & Units 1 yr [...] g/dL 5.7 Low Hepatic Function Panel Order: [id number] Component Ref Range & Units 1 yr [...] ntains abnormal data COMPREHENSIVE METABOLIC PANEL Order: [id number] Component Ref Range & Units 1 yr [...] Filt Rate >60 mL/min/1.73m2 >60 Lipase Order: [id number] Component Ref Range & Units 1 yr [...] follow up with Dr. Hylton who is marine equipment research engineer We discussed seeing endocrinology to help [...] XR CHEST 2V FRONTAL/LAT Carol Winn MD [facility] 03-27-2024 Telephone encounter Note OARRS reviewed, Rx sent into patient's pharmacy. [facility] 03-27-2024 Miscellaneous Notes OARRS reviewed, Rx sent into patient's pharmacy. Per hieu to increase tramadol 50mg 2 po every 6 prn documented in this encounter [facility] 03-27-2024 Telephone encounter Note Per hieu to increase tramadol 50mg 2 po every 6 prn [facility] 03-25-2024 Telephone encounter Note Images from the [...] Flowsheet Row Patient Outreach from 01/17/2024 in [facility] Information Discharge Date 01/10/24 Discharged To: Home Setting Discharge Hospital [facility] Engagement Call Start Time 1232 Admission Date [...] End Time 1233 No follow-ups on file. [facility] 03-25-2024 Miscellaneous Notes Images from the original [...] Flowsheet Row Patient Outreach from 01/17/2024 in [facility] Information Discharge Date 01/10/24 Discharged To: Home Setting Discharge Hospital [facility] Engagement Call Start Time 1232 Admission Date [...] in the chart. documented in this encounter [facility] 03-25-2024 Telephone encounter Note Patient called asking [...] escitalopram (LEXAPRO) 20 mg, Oral, Every morning Yblpqnrcfzm-Fakiurrmw-Hhdrld 100-62.5-25 MCG/ACT aerosol powder INHALE 1 PUFF [...] Attention deficit hyperactivity disorder, predominantly inattentive type ([facility]) 09/23/2022 Bipolar disorder, in partial remission, most recent episode manic ([facility]) 09/23/2022 Diverticular disease of colon 09/23/2022 Dysphagia 09/23/2022 Elevated liver enzymes 09/23/2022 Exercise induced bronchospasm ([facility]) 09/23/2022 Finding of above normal blood pressure 09/23/2022 History of hysterectomy 09/23/2022 Hyperglycemia 09/23/2022 Hypersexuality 09/23/2022 Insomnia 09/23/2022 Irritable bowel syndrome with constipation 09/23/2022 Mild intermittent asthma without complication ([facility]) 09/23/2022 Mood swings 09/23/2022 Nephrolithiasis 09/23/2022 Nonalcoholic steatohepatitis (ENGLISH) 09/23/2022 Other specified abnormal findings of blood chemistry 09/23/2022 Poor concentration 09/23/2022 Sacroiliitis, not elsewhere classified ([facility]) 09/23/2022 Skin pain 09/23/2022 Thyroid enlargement ([facility]) 09/23/2022 Atherosclerosis of aorta ([facility]) 06/16/2020 Atherosclerosis of both carotid arteries 11/16/2020 Atherosclerosis of coronary artery without angina pectoris ([facility]) 05/18/2021 Gastroesophageal reflux disease without esophagitis 07/09/2019 Gastroparesis 11/02/2022 Non-refractory idiopathic generalized epilepsy ([facility]) 11/22/2019 Osteoarthritis of knee 06/14/2019 Hypercholesterolemia ([facility]) 07/01/2021 Recurrent UTI 12/12/2022 Vitamin D deficiency 05/16/2019 Dizziness 12/13/2022 Acute nonintractable headache 12/13/2022 History of COVID-19 02/06/2023 Overweight 02/06/2023 Acute biliary pancreatitis without infection or necrosis 03/21/2023 Calculus of gallbladder without cholecystitis without obstruction 03/23/2023 Cholecystitis 04/18/2023 Encounter for postoperative care 04/18/2023 History of acute pancreatitis 04/18/2023 History of cholecystectomy 04/18/2023 Cough 04/18/2023 Anaphylactic syndrome 04/18/2023 PTSD (post-traumatic stress disorder) ([facility]) 02/24/2015 Tinea 10/03/2023 Weight gain 10/03/2023 Glucose [...] Abnormal LFTs Abnormal liver ultrasound 06/15/2022 Asthma ([facility]) COVID 03/11/2021 Delayed gastric emptying 09/12/2022 Gall [...] nursing note reviewed. Exam conducted with a radioisotope technician present. Vitals: Estimated body mass index is [...] scheduled for dx lap with poss leena covington. Pt has a positive bladder swipe. Rx for doxy faxed to pharmacy. Pap was obtained without difficulty. Orders Placed This Encounter Procedures HPV DNA probe, amplified Follow Up: Patient is to return in one year for annual unless needed otherwise. Documented by Sandy Toribio LPN on behalf of: Darwin Starr DO documented in this encounter [facility] 03-07-2024 Telephone encounter Note OARRS reviewed, Rx sent into patient's pharmacy. [facility] 03-07-2024 Miscellaneous Notes OARRS reviewed, Rx sent into patient's pharmacy. documented in this encounter [facility] 03-07-2024 Telephone encounter Note OARRS reviewed, Rx sent into patient's pharmacy. [facility] 03-07-2024 Miscellaneous Notes OARRS reviewed, Rx sent into patient's pharmacy. ALPRAZolam (Xanax) 0.5 MG tablet [facility] documented in this encounter [facility] 03-06-2024 History of Present illness Narrative [...] seems to be a flair up. Pain: 2/10 neck, ankle 3/10 Objective: PT Evaluation (02/05/24) Cervical ROM: normal [...] to be instructed in home exercise program. [facility] Goals: To be met in 10 weeks [...] Please sign below. Date: Cosigned by Zhen Burgess, PT at 03/07/2024 2:57 PM EST documented in this encounter [facility] 03-06-2024 Telephone encounter Note ALPRAZolam (Xanax) 0.5 MG tablet Jhon mancuso [facility] 02-12-2024 History of Present illness Narrative [...] to be instructed in home exercise program. [facility] Goals: To be met in 10 weeks [...] sign below. Date: documented in this encounter [facility] 02-06-2024 History of Present illness Narrative [...] DAY IN THE MORNING 30 tablet 2 Emhthajnlua-Fzbirfzfa-Nmomsz 100-62.5-25 MCG/ACT aerosol powder INHALE 1 PUFF [...] follow-ups on file. documented in this encounter [facility] 01-29-2024 Telephone encounter Note 25 visits out to 10/21/24 [facility] 01-29-2024 Miscellaneous Notes 25 visits out to 10/21/24 documented in this encounter [facility] 01-22-2024 History of Present illness Narrative Reason [...] escitalopram (LEXAPRO) 20 mg, Oral, Every morning Yuaoxdioime-Vkjbzdrpu-Lszruo 100-62.5-25 MCG/ACT aerosol powder INHALE 1 PUFF [...] Attention deficit hyperactivity disorder, predominantly inattentive type ([facility]) 09/23/2022 Bipolar disorder, in partial remission, most recent episode manic ([facility]) 09/23/2022 Diverticular disease of colon 09/23/2022 Dysphagia 09/23/2022 Elevated liver enzymes 09/23/2022 Exercise induced bronchospasm ([facility]) 09/23/2022 Finding of above normal blood pressure 09/23/2022 History of hysterectomy 09/23/2022 Hyperglycemia 09/23/2022 Hypersexuality 09/23/2022 Insomnia 09/23/2022 Irritable bowel syndrome with constipation 09/23/2022 Mild intermittent asthma without complication ([facility]) 09/23/2022 Mood swings 09/23/2022 Nephrolithiasis 09/23/2022 Nonalcoholic steatohepatitis (ENGLISH) 09/23/2022 Other specified abnormal findings of blood chemistry 09/23/2022 Poor concentration 09/23/2022 Sacroiliitis, not elsewhere classified ([facility]) 09/23/2022 Skin pain 09/23/2022 Thyroid enlargement ([facility]) 09/23/2022 Atherosclerosis of aorta ([facility]) 06/16/2020 Atherosclerosis of both carotid arteries 11/16/2020 Atherosclerosis of coronary artery without angina pectoris ([facility]) 05/18/2021 Gastroesophageal reflux disease without esophagitis 07/09/2019 Gastroparesis 11/02/2022 Non-refractory idiopathic generalized epilepsy ([facility]) 11/22/2019 Osteoarthritis of knee 06/14/2019 Hypercholesterolemia ([facility]) 07/01/2021 Recurrent UTI 12/12/2022 Vitamin D deficiency 05/16/2019 Dizziness 12/13/2022 Acute nonintractable headache 12/13/2022 History of COVID-19 02/06/2023 Overweight 02/06/2023 Acute biliary pancreatitis without infection or necrosis 03/21/2023 Calculus of gallbladder without cholecystitis without obstruction 03/23/2023 Cholecystitis 04/18/2023 Encounter for postoperative care 04/18/2023 History of acute pancreatitis 04/18/2023 History of cholecystectomy 04/18/2023 Cough 04/18/2023 Anaphylactic syndrome 04/18/2023 PTSD (post-traumatic stress disorder) ([facility]) 02/24/2015 Tinea 10/03/2023 Weight gain 10/03/2023 Glucose [...] Abnormal LFTs Abnormal liver ultrasound 06/15/2022 Asthma ([facility]) COVID 03/11/2021 Delayed gastric emptying 09/12/2022 Gall [...] nursing note reviewed. Exam conducted with a radioisotope technician present. Vitals: Estimated body mass index is [...] Darwin Starr DO documented in this encounter [facility] 01-09-2024 History of Present illness Narrative Images [...] DAY IN THE MORNING 30 tablet 2 Cdqdsahftto-Umsfkuhkj-Bcqcpa 100-62.5-25 MCG/ACT aerosol powder INHALE 1 PUFF [...] Migraines Other mother's side Diabetes Maternal Grandmother Anlaia Accidental Brother Jose Antonio Harper Past Medical [...] follow-ups on file. documented in this encounter [facility] 01-08-2024 Telephone encounter Note [facility] 01-08-2024 Miscellaneous Notes [facility] [place] documented in this encounter [facility] 12-28-2023 Hospital Discharge instructions Patient Education 12/28/2023 15:59:41 Kidney Stones, Jrzt-nl-Dzet Kidney Stones Kidney stones are rock-like masses [...] Follow these instructions at home: Medicines Take tcdb-gns-pkdpoys and prescription medicines only as told by [...] provider. Document Revised: 12/02/2022 Document Reviewed: 12/02/2022 [employer] Patient Education 2023 [employer]. Follow Up Care 11/07/2022 15:52:12 With:OLEG OSEI, BHAVESH Patterson, URL Address: When:1 year [facility] 12-28-2023 Note Patient Education Urology Kidney Stones [...] these instructions at home: Medicines ? Take rgwn-oly-xvgxpeo and prescription medicines only as told by [...] provider. Document Revised: 12/02/2022 Document Reviewed: 12/02/2022 [employer] Patient Education ? 2023 [employer]. [facility] 12-26-2023 History of Present illness Narrative Associated [...] DAY IN THE MORNING 30 tablet 2 Mthehexndpq-Bbbtbfftf-Tdehzr 100-62.5-25 MCG/ACT aerosol powder INHALE 1 PUFF [...] follow-ups on file. documented in this encounter [facility] 12-19-2023 Note Education (CARDMN) ---- ORION HARPER ([id number]) 1990 F Date Time Provider Department 12/19/23 [...] Encounter Status:Closed by GEGE LEMA on 12/19/23 [facility] 12-19-2023 Note HNO ID: [id number] Author: GEGE LEMA Tech Service: ? Author Type: Technologist Type: Progress Notes Filed: 12/19/2023 15:45 Note Text: EVENT MONITOR DISPOSABLE PATCH INSTRUCTIONS Patient Name: Orion Harper [facility] Number: [id number] Skin prepped and cleansed with alcohol Patch secured to prepped area Monitor Activated Serial #: [id number] Patient Instructed: Prescribed order timeframe Bathing guidelines Usage of event button and diary documentation Return of monitor at the end of prescribed order Call with problems [phone] or [phone]. [phone] Patient expresses a good understanding of instructions Tristian Pretty [facility] 12-19-2023 History of Present illness Narrative EVENT MONITOR DISPOSABLE PATCH INSTRUCTIONS Patient Name: Orion Harper [facility] Number: [id number] Skin prepped and cleansed with alcohol Patch secured to prepped area Monitor Activated Serial #: [id number] Patient Instructed: Prescribed order timeframe Bathing guidelines Usage of event button and diary documentation Return of monitor at the end of prescribed order Call with problems [phone] or [phone] ext. [phone] Patient expresses a good understanding of instructions Tristian Pretty documented in this encounter [facility] 12-19-2023 Instructions Solo Mora MD - 12/19/2023 3:27 PM EDT Next Steps: 1). Please wear a heart monitor for 2 weeks and mail it back 2). Please get a stress echo done and follow up with me afterwards documented in this encounter [facility] 12-19-2023 History of Present illness Narrative Images from the original note were not included. [facility] [place] [facility] Department of Cardiovascular Medicine SECTION OF CARDIAC PACING and ELECTROPHYSIOLOGY OUTPATIENT VISIT DATE December 19, 2023 OUTPATIENT VISIT TYPE NEW PRIMARY CARE PHYSICIAN: Giovani Hagen MD [address] [facility] [address] [place] [address] CHIEF COMPLAINT: Syncope, cardiac evaluation for family [...] had any workup done including Stress Echo, monitor technician or 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 Reports symptoms of palpitations [...] had any workup done including Stress Echo, monitor technician or 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 PLAN AND RECOMMENDATIONS: - Exercise stress echo for exertional syncope to rule out structural or arrhythmic cause - 2 week tina Fitzgerald personally interviewed, confirmed and edited the above information as obtained by others. CONTACT INFORMATION: Solo Mora MD documented in this encounter [facility] 12-19-2023 Note HNO ID: [id number] Author: SOLO MORA MD Service: ? Author Type: Physician Type: Progress Notes Filed: 12/28/2023 02:49 Note Text: [facility] Department of Cardiovascular Medicine SECTION OF CARDIAC PACING and ELECTROPHYSIOLOGY OUTPATIENT VISIT DATE December 19, 2023 OUTPATIENT VISIT TYPE NEW PRIMARY CARE PHYSICIAN: Giovani Hagen MD [address] [place] [address] CHIEF COMPLAINT: Syncope, cardiac evaluation for family [...] had any workup done including Stress Echo, monitor technician or 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 Reports symptoms of palpitations [...] for syncopal episod (more content not included)... [facility] 12-19-2023 Note HNO ID: [id number] Author: SOLO MORA MD Service: ? Author [...] correspond to sinus tachycardia Solo Mora MD [facility] 12-18-2023 Telephone encounter Note Patient had labwork performed on 12-13-2023. Dr. Colvin wanted you to be aware so you could review them. [facility] 12-18-2023 Miscellaneous Notes Patient had labwork performed on 12-13-2023. Dr. Colvin wanted you to be aware so you could review them. documented in this encounter [facility] 11-02-2023 Telephone encounter Note Images from the original note were not included. Records are in Care Everywhere: EP Referral- 11/01/23 (Dr. Shilo Dillon/Cardiology) Criss Mccrary [facility] 11-02-2023 Miscellaneous Notes Images from the original note were not included. Records are in Care Everywhere: EP Referral- 11/01/23 (Dr. Shilo Dillon/Cardiology) Criss Mccrary documented in this encounter [facility] 03-20-2023 Miscellaneous Notes Patient is a [...] prior to transfer. documented in this encounter [facility] 11-03-2022 Miscellaneous Notes PA for Ibsrela initiated electronically. Awaiting response [facility] ID# [id number] Rx BIN [id number] Rx PCN CLAIMCR Rx Grp STOH documented in this encounter [facility] 11-02-2022 History of Present illness Narrative Behavioral Medicine [facility] [place] Name: Orion Harper MR#: [id number] Date: 11/02/2022 Time: 1 hour Referred by: [...] She was given the website for the [facility] Behavioral Medicine Program and shown the relaxation recordings with the recommendation to practice this and the rationale behind their use. Follow-up with Dr. Conteh was discussed as well as encouraging her to continue her PTSD work with a local trauma therapist. Soraida Zhang, Ph.D. documented in this encounter [facility] 11-02-2022 History of Present illness Narrative Assessment ASSESSMENT 32 year old female with medical refractory gastroparesis. PLAN I discussed surgical therapy for gastroparesis in detail. Orion Harper is candidate for further medical treatment. Needs to stop Wegovy May consider for wireless motility capsule study Constipation medication change per Dr. 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 Maria Dolores Corey DO P Sp Ddsi Clinical Pool Please ask her to see RETAIL DEPARTMENT RESET to r/o endometriosis there was a very slight abnormal wave (not strong) suggesting its possible Called and spoke with the patient and relayed providers message. documented in this encounter [facility] 10-18-2022 Miscellaneous Notes PA initiated via [employer]. Await response. Covered: Retail, Mail Order Unknown: Specialty, Long-Term Care Group ID: [id number] Group name: BIN: [id number] PCN: [id number] documented in this encounter [facility] 10-18-2022 History of Present illness Narrative Images from the original note were not included. documented in this encounter [facility] 10-17-2022 Nurse Note EGG completed. Able to drink the 500 ml of water without any difficulty. documented in this encounter [facility] 09-12-2022 History of Present illness Narrative [...] 10:11AM PATIENT DISCHARGED TO: Ambulatory patient, left [place] department area. A Diagnostic radioactive procedure has taken place, with no further precautions necessary other than routine body substance precautions. More information regarding radiation safety can be found using this link: [email or web address]% [email or web address] SIGNATURE: RT Amber(R) PATIENT NAME: Orion Harper DATE: September 12, 2022 TIME: 2:45 PM PAGER/CONTACT #: documented in this encounter [facility] 08-31-2022 Nurse Note POST OP LEARNING RESPONSE INSTRUCTION PROVIDED TO: Patient and family member METHOD OF INSTRUCTION: Written instruction - handouts Verbal instruction PATIENT / FAMILY RESPONSE: Information received as demonstrated by interest and questions FOLLOW-UP PLAN: Patient instructed to call with any further issues SUPPLEMENTAL MATERIAL: None REFERRAL (RECOMMENDATION): None Electronically Signed By: Wilma Limon RN In Department: AMBULATORY SURGERY [facility] 08-31-2022 Nurse Note POST OP LEARNING [...] Department: AMBULATORY SURGERY documented in this encounter [facility] 08-31-2022 History and physical note SEDATION [...] Anesthesia SIGNATURE: Carol Winn MD PATIENT NAME: Orion Harper DATE: August 31, 2022 TIME: 2:51 PM [facility] 08-31-2022 History and physical note SEDATION [...] Anesthesia SIGNATURE: Carol Winn MD PATIENT NAME: Orion Harper DATE: August 31, 2022 TIME: 2:51 PM documented in this encounter [facility] 08-31-2022 Nurse Note PRE OP LEARNING ASSESSMENT PROCEDURE/SURGERY: GI PROCEDURES: EGD READINESS TO LEARN COGNITIVE ABILITY: Alert and oriented MOTIVATION TO LEARN: Interested FAMILY SUPPORT: Unable to assess - Family not present PATIENT LEARNS BEST BY: Written Instruction - Hand-outs Verbal Instruction FACTORS AFFECTING LEARNING: None PHYSICAL LIMITATIONS AFFECTING LEARNING: None Electronically Signed By: Ayleen Aj RN In Department: AMBULATORY SURGERY [facility] 08-24-2022 Miscellaneous Notes Lm to confirm procedure for 08-31-22 documented in this encounter [facility] 07-05-2022 Hospital Discharge instructions Patient Education [...] [facility] [address], [place] [address]- Business (1) When:11/04/2022 08:39:10 Comments:With a stone metabolic work-up [facility] 06-30-2022 Nurse Note Pt denies any nausea at this time. Pt given 3 oz of apple juice per request and tolerating at this time. Pt denies any other s/s at this time, smiling in conversation, 500ml of Nacl completed as well. Pt reports she feels ready to go home. [facility] 06-30-2022 Nurse Note Pt denies any [...] Department: AMBULATORY SURGERY documented in this encounter [facility] 06-30-2022 Nurse Note Pt c/o nausea [...] Pt resting in bed at this time. [facility] 06-30-2022 Nurse Note POST OP LEARNING [...] By: Wilma Limon In Department: AMBULATORY SURGERY [facility] 06-30-2022 History and physical note SEDATION [...] Anesthesia SIGNATURE: Carol Winn MD PATIENT NAME: Orion Harper DATE: June 30, 2022 TIME: 11:35 AM [facility] 06-30-2022 History and physical note SEDATION [...] Anesthesia SIGNATURE: Carol Winn MD PATIENT NAME: Orion Harper DATE: June 30, 2022 TIME: 11:35 AM documented in this encounter [facility] 06-30-2022 Nurse Note PRE OP LEARNING [...] Elissa Kwok RN In Department: AMBULATORY SURGERY [facility] 06-23-2022 Miscellaneous Notes Confirmed procedure for 06-30-22 documented in this encounter [facility] 06-15-2022 History of Present illness Narrative [...] 2022 8:08 PM documented in this encounter [facility] 06-14-2022 Miscellaneous Notes Images from the original note were not included. riya Atkins to schedule follow up US [...] Carol Winn MD 06/14/2022 9:29 AM EST Hi Milly, the CT scan showed Fatty liver [...] needed pending results documented in this encounter [facility] 06-10-2022 History of Present illness Narrative [...] 2022 10:01 AM documented in this encounter [facility] 05-27-2022 History of Present illness Narrative [...] 2022 12:29 PM documented in this encounter [facility] 05-27-2022 History of Present illness Narrative Chief Compliant: Orion Harper, 31 year old female, presents in the office today for fatty liver HPI: Orion Harper is a 31 year old female [...] follow up with Dr. Hylton who is marine equipment research engineer We discussed seeing endocrinology to help [...] follow-ups on file. documented in this encounter [facility] 05-03-2022 Evaluation note Encounter Date Diagnosis Assessment Notes Apr, ENGLISH (nonalcoholic steatohepatiti s) (ICD-10 - K75.81) Apr, Abnormal ultrasound (ICD-10 - R93.89) Apr, Elevated liver enzymes (ICD-10 - R74.8) Apr, Liver cyst (ICD-10 - K76.89) Travel Appeal Other Evaluation + Plan note Future Appointments Appointment Date:06/30/2022 10:00:00 AM Scheduled Provider: Location:[facility] Appointment Type:Urology CALL PAT FT Appointment Date:07/05/2022 08:15:00 AM Scheduled Provider: Location:[facility] Appointment Type:Urology FT Diagnostic Tests Pending * [facility]rine [facility] Plan note Future Appointments Appointment Date:11/07/2022 03:15:00 PM Scheduled Provider:Madhuri MISHRA MD Location:[facility] App[facility]:URO [facility] Future Appointments Appointment Date:12/30/2024 03:15:00 PM Scheduled Provider:Madhuri MISHRA MD [facility] evalaceepk noteNo assessment information available [facility] Work Phone: Evaluation note* Diagnosis Fatty liver- Primary Other chronic nonalcoholic liver disease Bilious vomiting with nausea Right sided abdominal pain Abdominal pain, unspecified site Nausea Nausea alone History of diverticulitis SOB (shortness of breath) Shortness of breath documented in this encounter [facility] note* Diagnosis Liver lesion- Primary Other specified disorders of liver documented in this encounter [facility] note* Diagnosis Gastroparesis- Primary documented in this encounter [facility] note* Diagnosis Gastroparesis- Primary documented in this encounter [facility] note* Diagnosis Irritable bowel syndrome with constipation- Primary Irritable bowel syndrome documented in this encounter [facility] note* Diagnosis Gastroparesis documented in this encounter [facility] note* Diagnosis Gastroparesis- Primary documented in this encounter [facility] note* Diagnosis SOB (shortness of breath) Shortness of breath documented in this encounter [facility] note* Diagnosis Liver lesion Other specified disorders of liver [facility] Diagnosis Elevated LFTs Other abnormal blood chemistry documented in this encounter [facility] note* Diagnosis Bilious vomiting with nausea Right sided abdominal pain Abdominal pain, unspecified site Nausea Nausea alone documented in this encounter [facility] note* Diagnosis Nausea Nausea alone documented in this encounter [facility] note* Diagnosis Gastroparesis- Primary documented in this encounter [facility] note* Diagnosis Syncope and collapse- Primary documented in this encounter [facility] note* Diagnosis Syncope, unspecified syncope type- Primary documented in this encounter [facility] note* Diagnosis Syncope, unspecified syncope type- Primary documented in this encounter [facility] note* Diagnosis Nausea- Primary Nausea alone PUD (peptic ulcer disease) Peptic ulcer, unspecified site, unspecified as acute or chronic, without mention of hemorrhage, perforation, or obstruction Nausea Nausea alone documented in this encounter [facility] note* Diagnosis PUD (peptic ulcer [...] perforation, or obstruction documented in this encounter [facility] note* Diagnosis Attention deficit hyperactivity [...] or radiculitis nos documented in this encounter [facility]* Diagnosis Attention deficit hyperactivity [...] complication (CMS/HCC)- Primary documented in this encounter [facility]* [...] asthma (CMS/HCC)- Primary documented in this encounter [facility]Evaluation note* Diagnosis Elevated LFTs- Primary Other abnormal blood chemistry BRBPR (bright red blood per rectum) Hemorrhage of rectum and anus [facility] Diagnosis Attention deficit hyperactivity disorder, [...] inattentive type (CMS/HCC) documented in this encounter [facility] HealthcareEvaluation note* Diagnosis Attention deficit hyperactivity disorder, [...] 35.0-39.9 without comorbidity) documented in this encounter [facility] HealthcareEvaluation note* Diagnosis Elevated LFTs- Primary Other abnormal blood chemistry [facility] Diagnosis Elevated LFTs- Primary Other abnormal blood chemistry [facility] Diagnosis Attention deficit hyperactivity disorder, [...] system- Primary Mild intermittent asthma without complication ([facility]/HCC) Moderate persistent asthmatic bronchitis with acute exacerbation ([facility]/HCC)- Primary Sprain of anterior talofibular ligament of right ankle, subsequent encounter Snoring Other dyspnea and respiratory abnormality Peroneal tendon tear, right, initial encounter- Primary Sprain of anterior talofibular ligament of right ankle, subsequent encounter Osteochondritis dissecans of ankle, right Severe ankle sprain, right, initial encounter documented in this encounter [facility] HealthcareEvaluation note* Diagnosis Right ankle instability- Primary Other joint derangement, not elsewhere classified, ankle and foot Right ankle instability Other joint derangement, not elsewhere classified, ankle and foot [facility] Diagnosis Sprain of anterior talofibular ligament of right ankle, initial encounter- Primary Right ankle instability Other joint derangement, not elsewhere classified, ankle and foot [facility] Diagnosis Attention deficit hyperactivity disorder, [...] episode manic (CMS/HCC) documented in this encounter [facility] HealthcareEvaluation note* Diagnosis Attention deficit hyperactivity disorder, [...] of spine- Primary documented in this encounter [facility] HealthcareEvaluation note* Diagnosis ENGLISH (nonalcoholic steatohepatitis)- Primary Other chronic nonalcoholic liver disease Right ankle instability Other joint derangement, not elsewhere classified, ankle and foot [facility] Diagnosis Attention deficit hyperactivity disorder, [...] cervix and uterus [facility]* Diagnosis BRBPR (bright red blood per rectum) Hemorrhage of rectum and anus documented in this encounter [facility] general Narrative - Reported* Type Description Date Medical History Anxiety Medical History Depression Medical History Diverticulosis Medical History bipolar Surgical History C section Surgical History hysterectomy Hospitalization History see above Hospitalization History diverticulitis 01/24/18 Hospitalization History NONE ON THE LAST YEAR Travel Appeal Other Hospital course Narrative No data available for this section [facility] No data available for this section [facility] No data available for this section [facility] (narrative)* Outpatient Procedure (Routine) - Authorized Specialty Diagnoses / Procedures Referred By Norma kennedy Referred To Contact [facility] Diagnoses Bilious vomiting with nausea Right sided abdominal pain Procedures EGD DIAGNOSTIC ESOPHAGOGASTRODUODENOSC [place] [address] [place] [address] [facility] [address] [place] [address] Referral ID Status Reason Start Date Expiration Date Visits Requested Visits Authorized [id number] Authorized Auto-Generat ed Referral 05/27/2022 05/27/2023 1 1 * MRI/CT (Routine) - Authorized Specialty Diagnoses / Procedures Referred By Contac t Referred To Contact CT IMAGING Diagnoses Bilious vomiting with nausea Right sided abdominal pain Nausea Procedures CT ABD/PEL WO IVCON CT ABD & PELVIS W/O CONTRAST Carol Winn [place] [id number] [place] [phone] Ct Imaging Referral ID Status Reason Start Date Expiration Date Visits Requested Visits Authorized [id number] Authorized Auto-Generat ed Referral 05/27/2022 06/26/2023 1 1 [facility] for referral (narrative)* Diagnostic Procedure Only (Routine) - Authorized Specialty Diagnoses / Procedures Referred By Norma t Referred To Contact [facility] IMAGING Diagnoses Liver lesion Procedures US ABD RT UPPER QUADRANT US ABDOMINAL REAL TIME W/IMAGE LIMITED Carol Winn [place] [id number] [place] [phone] [facility] Referral ID Status Reason Start Date Expiration Date Visits Requested Visits Authorized [id number] Authorized Auto-Generat ed Referral 06/14/2022 07/14/2023 1 1 [facility] for referral (narrative)* Diagnostic Procedure Only (Routine) - Closed Specialty Diagnoses / Procedures Referred By Contac t Referred To Contact [facility] Diagnoses Liver lesion Procedures US ABD RT UPPER QUADRANT US ABDOMINAL REAL [place] W/[place] [address] [place] [address] [place] [address] Referral ID Status Reason Start Date Expiration Date V isits Requested Visits Authorized [id number] Closed Auto-Generate d Referral 06/14/2022 07/14/2023 1 1 [facility] for referral (narrative)* Diagnostic Procedure Only (Routine) - Closed Specialty Diagnoses / Procedures [facility]erred To [facility] Diagnoses Elevated LFTs Procedures US ABD RT UPPER QUADRANT US ABDOMINAL [place] W/[place] [address] [place] [address] [place] [address] Referral ID Status Reason Start Date Expiration Date V isits Requested Visits Authorized [id number] Closed Auto-Generate d Referral 11/24/2021 12/24/2022 1 1 [facility] for referral (narrative)* Diagnostic Procedure Only (Routine) - Closed Specialty Diagnoses / Procedures [facility] Referred To Contact [facility] Diagnoses Nausea Procedures NM GASTRIC EMPTYING SOLID [place] [address] [place] [address] [facility] [address] [place] [address] Referral ID Status Reason Start Date Expiration Date V isits Requested Visits Authorized [id number] Closed Auto-Generate d Referral 08/31/2022 09/30/2023 1 1 T [facility] for referral (narrative)* Outpatient Procedure (Routine) - Authorized Specialty Diagnoses / Procedures [facility] To [facility] Diagnoses Gastroparesis Procedures ECG COMPLETE ECG ROUTINE ECG W/LEAST 12 LDS W/I&R Solo Mora MD [address] [place] [address] [place] [address] Referral ID Status Reason Start Date Expiration Date Visits Requested Visits Authorized [id number] Authorized Auto-Generat ed Referral 11/02/2023 11/01/2024 1 1 [facility] for referral (narrative)* Outpatient Procedure (Routine) - Authorized Specialty Diagnoses / Procedures [facility] Diagnoses Syncope and collapse Procedures ECG COMPLETE ECG ROUTINE ECG W/LEAST 12 LDS W/I&R Solo Mora MD [address] [place] [address] [facility] [address] [place] [address] Referral ID Status Reason Start Date Expiration Date Visits Requested Visits Authorized [id number] Authorized Auto-Generat ed Referral 12/19/2023 12/18/2024 1 1 [facility] for referral (narrative)* Diagnostic Procedure Only (Routine) - Closed Specialty Diagnoses / Procedures [facility] Referred To Contact [facility] Diagnoses Nausea Procedures NM GASTRIC EMPTYING SOLID [place]IC [place] [address] [place] [address] [facility] [address] [id number] Referral ID Status Reason Start Date Expiration Date V isits Requested Visits Authorized [id number] Closed Auto-Generate d Referral 08/31/2022 09/30/2023 1 1 * Outpatient Procedure (Routine) - Closed Specialty Diagnoses / Procedures [facility] Referred To Contact [facility] Diagnoses PUD (peptic ulcer disease) Procedures EGD DIAGNOSTIC ESOPHAGOGASTRODUODENOSC OPY [place] [address] [place] [address] [facility] [address] [place] [address] Referral ID Status Reason Start Date Expiration Date V isits Requested Visits Authorized [id number] Closed Auto-Generate d Referral 06/30/2022 07/01/2023 1 1 [facility] for referral (narrative)* Outpatient Procedure (Routine) - Closed Specialty Diagnoses / Procedures Referred By Contac t Referred To Contact [facility] Diagnoses PUD (peptic ulcer disease) Procedures EGD DIAGNOSTIC ESOPHAGOGASTRODUODENOSC OPY TRANSORAL DIAGNOSTIC Carol Winn [place] [id number] [place] [phone] [place] [id number] Referral ID Status Reason Start Date Expiration Date V isits Requested Visits Authorized [id number] Closed Auto-Generate d Referral 06/30/2022 07/01/2023 1 1 * Outpatient Procedure (Routine) - Closed Specialty Diagnoses / Procedures [facility] Referred To Contact [facility] Diagnoses Bilious vomiting with nausea Right sided abdominal pain Procedures EGD DIAGNOSTIC ESOPHAGOGASTRODUODENOSC OPY TRANSORAL DIAGNOSTIC Carol Winn MD [id number] [place] [phone] [address] Referral ID Status Reason Start Date Expiration Date V isits Requested Visits Authorized [id number] Closed Auto-Generate d Referral 05/27/2022 05/27/2023 1 1 [facility] for referral (narrative)* Outpatient Procedure (Routine) - Authorized Specialty Diagnoses / Procedures Referred By Contac t Referred To Contact [facility] Diagnoses BRBPR (bright red blood per rectum) Procedures COLONOSCOPY DIAGNOSTIC COLONOSCOPY FLX DX W/COLLJ SPEC WHEN PFRMD Iliana Mercado PA-C [id number] [place] [address] [address] Referral ID Status Reason Start Date Expiration Date Visits Requested Visits Authorized [id number] Authorized Auto-Generat ed Referral 04/26/2024 04/26/2025 1 1 * Outpatient Procedure (Routine) - Authorized Specialty Diagnoses / Procedures Referred By Contac t Referred To Contact [facility] Diagnoses Elevated LFTs Procedures DDI VIBRATION CONTROLLED TRANSIENT ELASTOGRAPHY (VCTE) LIVER ELASTOGRAPHY W/O IMAG W/I&R Iliana Mercado PA-C [address] [place] [address] [place] [address] Referral ID Status Reason Start Date Expiration Date Visits Requested Visits Authorized [id number] Authorized Auto-Generat ed Referral 04/26/2024 04/26/2025 1 1 [facility] for referral (narrative)* Outpatient Procedure (Routine) - Pending Review Specialty Diagnoses / Procedures Referred By Contac t Referred To Contact [facility] DISEASE [facility] Diagnoses ENGLISH (nonalcoholic steatohepatitis) Procedures LIVER BIOPSY NEEDLE BIOPSY LIVER NEEDLE PERCUTANEOUS Rosario Mcconnell I, MD [address] [place] [address] [place] [address] Referral ID Status Reason Start Date Expiration Date Visits Requested Visits Authorized [id number] Pending Review Auto-Generat ed Referral 05/14/2024 05/14/2025 1 1 [facility] for referral (narrative)* Outpatient Procedure (Routine) - Closed Specialty Diagnoses / Procedures Referred By Contac t Referred To Contact [facility] Diagnoses BRBPR (bright red blood per rectum) Procedures COLONOSCOPY DIAGNOSTIC COLONOSCOPY FLX DX W/COLLJ SPEC WHEN PFRMD Iliana Mercado PA-C [address] [place] [address] [place] [address] Referral ID Status Reason Start Date Expiration Date V isits Requested Visits Authorized [id number] Closed Auto-Generate d Referral 04/26/2024 04/26/2025 1 1 [facility] for visit NarrativePATIENT HERE AT THE REQUEST OF DR. HAGEN FOR ENGLISH & ABNORMAL US. ULTRASOUND AND LABS IN REFERRAL. PATIENT STATES SHE FEELS LETHARGIC & HAS OCCASIONAL ABDOMINAL PAINHiwassee [employer]active [employer] Other [facility] for visit Narrative* Diagnostic Procedure Only (Routine) - Closed Specialty Diagnoses / Procedures Referred By Contac t Referred To Contact [facility] IM[facility] Diagnoses Liver lesion Procedures US ABD RT UPPER QUADRANT US ABDOMINAL REAL [place] W/[place] [address] [place] [address] [place] [address] Referral ID Status Reason Start Date Expiration Date V isits Requested Visits Authorized [id number] Closed Auto-Generate d Referral 06/14/2022 07/14/2023 1 1 [facility] for visit Narrative* Diagnostic Procedure Only (Routine) - Closed Specialty Diagnoses / Procedures Referred By Contac t Referred To Contact [facility] IM[facility] Diagnoses Elevated LFTs Procedures US ABD RT UPPER QUADRANT US ABDOMINAL REAL [place] W/[place] [address] [place] [address] [place] [address] Referral ID Status Reason Start Date Expiration Date V isits Requested Visits Authorized [id number] Closed Auto-Generate d Referral 11/24/2021 12/24/2022 1 1 [facility] for visit Narrative* Diagnostic Procedure Only (Routine) - Closed Specialty Diagnoses / Procedures Referred By Contac t Referred To Contact MOLECULAR & FUNCTIONAL IMAGING Diagnoses Nausea Procedures NM GASTRIC EMPTYING SOLID [place] [address] [place] [address] Molecular & Functional Imaging [address] [place] [address] Referral ID Status Reason Start Date Expiration Date V isits Requested Visits Authorized [id number] Closed Auto-Generate d Referral 08/31/2022 09/30/2023 1 1 [facility] for visit Narrative* Outpatient Procedure (Routine) - Closed Specialty Diagnoses / Procedures Referred By Contac t Referred To Contact [facility] DISE[facility] Diagnoses PUD (peptic ulcer disease) Procedures EGD DIAGNOSTIC ESOPHAGOGASTRODUODENOSC OPY [place] [address] [place] [address] [facility] [address] [place] [address] Referral ID Status Reason Start Date Expiration Date V isits Requested Visits Authorized [id number] Closed Auto-Generate d Referral 06/30/2022 07/01/2023 1 1 [facility] for visit Narrative* Outpatient Procedure (Routine) - Closed Specialty Diagnoses / Procedures Referred By Contmusa t Referred To Contact [facility] DISE[facility] Diagnoses Bilious vomiting with nausea Right sided abdominal pain Procedures EGD DIAGNOSTIC ESOPHAGOGASTRODUODENOSC OPY [place] [address] [place] [address] [address] Referral ID Status Reason Start Date Expiration Date V isits Requested Visits Authorized [id number] Closed Auto-Generate d Referral 05/27/2022 05/27/2023 1 1 [facility] for visit Narrative* Rehabilitation - Outpatient (Routine) - Authorized Specialty Diagnoses / Procedures Referred By Contac t Referred To Contact Physical Therapy Diagnoses Cervical radiculopathy Procedures MT OFFICE/OUTPATIENT NEW HIGH MDM 60 MINUTES Giovani Hagen MD 112 [facility] [address] [place] [address] Phone: tel: fax: Zhen Burgess, PT 112 [facility] [address] [place] [address] Phone: tel: fax: Referral ID Status Reason Start Date Expiration Date Visits Requested Visits Authorized [id number] Authorized Specialty Services Required 01/25/2024 10/21/2024 25 25 [facility] - Outpatient (Routine) - Authorized Specialty Diagnoses / Procedures Referred By Norma t Referred To Contact Physical Therapy Diagnoses Cervical radiculopathy Unspecified injury of right ankle, subsequent encounter Procedures MT OFFICE/OUTPATIENT NEW HIGH MDM 60 MINUTES Giovani Hagen MD 112 [facility] [address] [place] [address] Phone: tel: fax: Zhen Burgess, PT 112 [facility] [address] [place] [address] Phone: tel: fax: Referral ID Status Reason Start Date Expiration Date Visits Requested Visits Authorized [id number] Authorized Specialty Services Required 01/25/2024 10/21/2024 25 25 [facility] Outpatient Procedure (Routine) - Closed Specialty Diagnoses / Procedures Referred By Contac t Referred To Contact DIGESTIVE DISEASE SCIO Diagnoses Elevated LFTs Procedures DDI VIBRATION CONTROLLED TRANSIENT ELASTOGRAPHY (VCTE) LIVER ELASTOGRAPHY W/O IMAG W/I&R Iliana Mercado PA-C [id number] [place] [id number] [address] Referral ID Status Reason Start Date Expiration Date V isits Requested Visits Authorized [id number] Closed Auto-Generate d Referral 04/26/2024 04/26/2025 1 1 [facility] for visit Narrative* Outpatient Procedure (Routine) - Closed Specialty Diagnoses / Procedures Referred By Contac t Referred To Contact [facility] Diagnoses BRBPR (bright red blood per rectum) Procedures COLONOSCOPY DIAGNOSTIC COLONOSCOPY FLX DX W/COLLJ SPEC WHEN PFRMD Iliana Mercado PA-C [id number] [place] [address] [facility] [address] [address] Referral ID Status Reason Start Date Expiration Date V isits Requested Visits Authorized [id number] Closed Auto-Generate d Referral 04/26/2024 04/26/2025 1 1 [facility] Summary Purpose Family History No Family [...] cervical spine wo contrast Giovani Hagen MD [address] [address] Referral ID Status Reason Start Date Expiration Date V isits Requested Visits Authorized [id number] Pending Review 01/09/2024 07/07/2024 1 1 Specialty Diagnoses / Procedures Referred By Contac t Referred To Contact Diagnoses Attention deficit hyperactivity disorder (ADHD), predominantly inattentive type (CMS/HCC) Giovani Hagen MD [address] [address] Referral ID Status Reason Start Date Expiration Date Visits Re quested Visits Authorized [id number] Closed 1 1 Specialty Diagnoses / Procedures Referred By Contac t Referred To Contact Diagnoses Attention deficit hyperactivity disorder (ADHD), predominantly inattentive type (CMS/HCC) Giovani Hagen MD [address] [address] Referral ID Status Reason Start Date Expiration Date V isits Requested Visits Authorized [id number] Pending Review 01/08/2024 07/06/2024 1 1 Specialty Diagnoses / Procedures Referred By Contac t Referred To Contact [facility] Diagnoses Syncope, unspecified syncope type Procedures CARDIOVASCULAR MEDICINE OP FOLLOW UP APPT ORDER Solo Mora MD [address] [place] [address] [facility] [address] [address] Referral ID Status Reason Start Date Expiration Date Visits Requested Visits Authorized [id number] Ref Not Required PCP Requested Referral 12/28/2023 12/27/2024 1 1 Specialty Diagnoses / Procedures Referred By Contac t Referred To Contact [facility] Diagnoses Syncope, unspecified syncope type Procedures STRESS ECHO TREADMILL ECHO TTHRC R-T 2D W/WO M-MODE COMPLETE REST&ST KochSolo ybarra MD [facility] [place] [address] [facility] [address] [address] Referral ID Status Reason Start Date Expiration Date Visits Requested Visits Authorized [id number] Authorized Auto-Generat ed Referral 12/19/2023 12/18/2024 1 1 Specialty Diagnoses / Procedures Referred By Contac t Referred To Contact CT IMAGING Diagnoses Bilious vomiting with nausea Right sided abdominal pain Nausea Procedures CT ABD/PEL WO IVCON CT ABD & PEL[place] [address] [place] [address] [facility] Imaging [facility] Referral ID Status Reason Start Date Expiration Date V isits Requested Visits Authorized [id number] Closed Auto-Generate d Referral 05/27/2022 06/26/2023 1 1 Additional Source Comments INFORMATION SOURCE (unrecogn ized section and content) DATE CREATED AUTHOR 11/09/2018 [facility] DATE CREATED AUTHOR AUTHOR'S ORGANIZ ATION 08/23/2021 [facility] dical Specialist DATE CREATED AUTHOR AUTHOR'S ORGANIZ ATION 07/17/2022 [facility] DATE CREATED AUTHOR AUTHOR'S ORGANIZ ATION 10/31/[address] [facility] DATE CREATED AUTHOR AUTHOR'S ORGANIZ ATION 03/22/2023 [facility] DATE CREATED AUTHOR AUTHOR'S ORGANIZ ATION 03/28/2023 [facility] DATE CREATED AUTHOR AUTHOR'S ORGANIZ ATION 12/29/2023 [facility] DATE CREATED AUTHOR AUTHOR'S ORGANIZ ATION 04/07/2024 [facility] DATE CREATED AUTHOR AUTHOR'S ORGANIZ ATION 04/12/2024 [facility] DATE CREATED AUTHOR AUTHOR'S ORGANIZ ATION 05/04/2024 [facility] DATE CREATED AUTHOR AUTHOR'S ORGANIZ ATION 05/16/2024 [facility] dical Specialists [facility] DATE CREATED AUTHOR AUTHOR'S ORGANIZ ATION 05/24/2024 [facility] Care Teams (unrecognized sec tion and content) Team Status: Active Member Role Status Dates Giovani Hagen MD Primary Care Provider Active Team Status: Inactive Member Role Status Dates Erwin Hylton MD Attending Provider Active Giovani Hagen MD Primary Care Provider Active Rope Walker Relationship Specialty Start Date End Date Giovani Hageny [address] [facility] [address] [place] [address] PCP - General Family Medicine 03/27/19 Rope Walker Relationship Specialty Start Date End Date Giovani Hagenalay [address] [facility] [address] [place] [address] PCP - General Family Medicine 03/27/19 Rope Walker Relationship Specialty Start Date End Date Giovani Hagenalay [address] [facility] [address] [place] [address] PCP - General Family Medicine 03/27/19 Rope Walker Relationship Specialty Start Date End Date Giovani Hagenalay [address] [place] [address] [place] [address] PCP - General Family Medicine 03/27/19 Rope Walker Relationship Specialty Start Date End Date Giovani Hagenalay [address] [place] [address] [place] [address] PCP - General Family Medicine 03/27/19 Rope Walker Relationship Specialty Start Date End Date Giovani Hagenalay [address] [facility] [address] [place] [address] PCP - General Family Medicine 03/27/19 Rope Walker Relationship Specialty Start Date End Date Giovani Hagen [address] [place] [address] [place] [address] PCP - General Family Medicine 03/27/19 Rope Walker Relationship Specialty Start Date End Date Giovani Haegn [address] [place] [address] [place] [address] PCP - General Family Medicine 03/27/19 Rope Walker Relationship Specialty Start Date End Date Giovani Hagen [address] [place] [address] [place] [address] PCP - General Family Medicine 03/27/19 Rope Walker Relationship Specialty Start Date End Date Giovani Hagen [address] [place] [address] [place] [address] PCP - General Family Medicine 03/27/19 Rope Walker Relationship Specialty Start Date End Date Giovani Hagen [address] [place] [address] [place] [address] PCP - General Family Medicine 03/27/19 Rope Walker Relationship Specialty Start Date End Date Giovani Hagen [address] [place] [address] [place] [address] PCP - General Family Medicine 03/27/19 Rope Walker Relationship Specialty Start Date End Date Giovani Hagen [address] [place] [address] [place] [address] PCP - General Family Medicine 03/27/19 Rope Walker Relationship Specialty Start Date End Date Giovani Hagen [address] [place] [address] [place] [address] PCP - General Family Medicine 03/27/19 Rope Walker Relationship Specialty Start Date End Date Giovani Hagen MD [address] [place] [address] [place] [address] PCP - General Family Medicine 03/27/19 Rope Walker Relationship Specialty Start Date End Date Giovani Hagen MD [address] [place] [address] [place] [address] PCP - General Family Medicine 03/27/19 Rope Walker Relationship Specialty Start Date End Date Giovani Hagen MD [address] [place] [address] [place] [address] PCP - General Family Medicine 03/27/19 Rope Walker Relationship Specialty Start Date End Date Giovani Hagen MD [address] [place] [address] [place] [address] PCP - General Family Medicine 03/27/19 Rope Walker Relationship Specialty Start Date End Date Giovani Hagen MD [address] [place] [address] [place] [address] PCP - General Family Medicine 03/27/19 Rope Walker Relationship Specialty Start Date End Date Giovani Hagen MD [address] [place] [address] [place] [address] PCP - General Family Medicine 03/27/19 Rope Walker Relationship Specialty Start Date End Date Giovani Hagen MD [address] [place] [address] [place] [address] PCP - General Family Medicine 03/27/19 Rope Walker Relationship Specialty Start Date End Date Giovani Hagen MD [address] [place] [address] [place] [address] PCP - General Family Medicine 03/27/19 Rope Walker Relationship Specialty Start Date End Date Giovani Hagen MD [address] [place] [address] [place] [address] PCP - General Family Medicine 03/27/19 Rope Walker Relationship Specialty Start Date End Date Giovani Hagen MD [address] [place] [address] [place] [address] PCP - General Family Medicine 03/27/19 Rope Walker Relationship Specialty Start Date End Date Giovani Hagen MD [address] [place] [address] [place] [address] PCP - General Family Medicine 03/27/19 Rope Walker Relationship Specialty Start Date End Date Giovani Hagen MD [address] [place] [address] [place] [address] PCP - General Family Medicine 03/27/19 Rope Walker Relationship Specialty Start Date End Date Giovani Hagen MD [address] [place] [address] [place] [address] PCP - General Family Medicine 03/27/19 Rope Walker Relationship Specialty Start Date End Date Giovani Hagen MD [address] [place] [address] [place] [address] PCP - Medical [employer] 10/22/18 04/23/99 Giovani Hagen MD [address] [place] [address] [place] [address] PCP - General Family Medicine 08/30/22 Rope Walker Relationship Specialty Start Date End Date Giovani Hagen MD [address] [place] [address] [place] [address] PCP - Medical [place] [employer] 10/22/18 04/23/99 Giovani Hagen MD [address] [place] [address] [place] [address] PCP - General Family Medicine 08/30/22 Rope Walker Relationship Specialty Start Date End Date Giovani Hagen MD [address] [place] [address] [place] [address] PCP - Medical [place] [employer] 10/22/18 04/23/99 Giovani Hagen MD [address] [place] [address] [place] [address] PCP - General Family Medicine 08/30/22 Rope Walker Relationship Specialty Start Date End Date Giovani Hagen MD [address] [place] [address] [place] [address] PCP - Medical [place] [employer] 10/22/18 04/23/99 Giovani Hagen MD [address] [place] [address] [place] [address] PCP - General Family Medicine 08/30/22 Rope Walker Relationship Specialty Start Date End Date Giovani Hagen MD [address] [place] [address] [place] [address] PCP - Medical [place] [employer] 10/22/18 04/23/99 Giovani Hagen MD [address] [place] [address] [place] [address] PCP - General Family Medicine 08/30/22 Rope Walker Relationship Specialty Start Date End Date Giovani Hagen MD [address] [place] [address] [place] [address] PCP - Medical [place] [employer] 10/22/18 04/23/99 Giovani Hagen MD [address] [place] [address] [place] [address] PCP - General Family Medicine 08/30/22 Rope Walker Relationship Specialty Start Date End Date Giovani Hagen MD [address] [place] [address] [place] [address] PCP - Medical [place] [employer] 10/22/18 04/23/99 Giovani Hagen MD [address] [place] [address] [place] [address] PCP - General Family Medicine 08/30/22 Rope Walker Relationship Specialty Start Date End Date Giovani Hagen MD [address] [place] [address] [place] [address] PCP - Medical [employer] [employer] 10/22/18 04/23/99 Giovani Hagen MD [address] [place] [address] [place] [address] PCP - General Family Medicine 08/30/22 Rope Walker Relationship Specialty Start Date End Date Giovani Hagen MD [address] [place] [address] [place] [address] PCP - Medical [employer] [employer] 10/22/18 04/23/99 Giovani Hagen MD [address] [place] [address] [place] [address] PCP - General Family Medicine 08/30/22 Rope Walker Relationship Specialty Start Date End Date Giovani Hagen MD [address] [place] [address] [place] [address] PCP - Medical [place] [employer] 10/22/18 04/23/99 Giovani Hagen MD [address] [place] [address] [place] [address] PCP - General Family Medicine 08/30/22 Rope Walker Relationship Specialty Start Date End Date Giovani Hagen MD [address] [place] [address] [place] [address] PCP - Medical [place] [employer] 10/22/18 04/23/99 Giovani Hagen MD [address] [place] [address] [place] [address] PCP - General Family Medicine 08/30/22 Rope Walker Relationship Specialty Start Date End Date Giovani Hagen MD [address] [place] [address] [place] [address] PCP - Medical [employer] 10/22/18 04/23/99 Giovani Hagen MD [address] [place] [address] [place] [address] PCP - General Family Medicine 08/30/22 Rope Walker Relationship Specialty Start Date End Date Giovani Hagen MD [address] [place] [address] [place] [address] PCP - Medical [place] [employer] 10/22/18 04/23/99 Giovani Hagen MD [address] [place] [address] [place] [address] PCP - General Family Medicine 08/30/22 Rope Walker Relationship Specialty Start Date End Date Giovani Hagen MD [address] [place] [address] [place] [address] PCP - Medical [place] [employer] 10/22/18 04/23/99 Giovani Hagen MD [address] [place] [address] [place] [address] PCP - General Family Medicine 08/30/22 Rope Walker Relationship Specialty Start Date End Date Giovani Hagen MD [address] [place] [address] [place] [address] PCP - Medical [employer] [employer] 10/22/18 04/23/99 Giovani Hagen MD [address] [place] [address] [place] [address] PCP - General Family Medicine 08/30/22 Rope Walker Relationship Specialty Start Date End Date Giovani Hagen MD [address] [place] [address] [place] [address] PCP - Medical [place] [employer] 10/22/18 04/23/99 Giovani Hagen MD [address] [place] [address] [place] [address] PCP - General Family Medicine 08/30/22 Rope Walker Relationship Specialty Start Date End Date Giovani Hagen MD [address] [place] [address] [place] [address] PCP - Medical [employer] 10/22/18 04/23/99 Giovani Hagen MD [address] [place] [address] [place] [address] PCP - General Family Medicine 08/30/22 Rope Walker Relationship Specialty Start Date End Date Giovani Hagen MD [address] [place] [address] [place] [address] PCP - Medical [employer] 10/22/18 04/23/99 Giovani Hagen MD [address] [place] [address] [place] [address] PCP - General Family Medicine 08/30/22 Rope Walker Relationship Specialty Start Date End Date Giovani Hagen MD [address] [place] [address] [place] [address] PCP - Medical [employer] 10/22/18 04/23/99 Giovani Hagen MD [address] [place] [address] [place] [address] PCP - General Family Medicine 08/30/22 Rope Walker Relationship Specialty Start Date End Date Giovani aHgen MD [address] [place] [address] [place] [address] PCP - Medical [employer] 10/22/18 04/23/99 Giovani Hagen MD [address] [place] [address] [place] [address] PCP - General Family Medicine 08/30/22 Rope Walker Relationship Specialty Start Date End Date Giovani Hagen MD [address] [place] [address] [place] [address] PCP - Medical [employer] 10/22/18 04/23/99 Giovani Hagen MD [address] [place] [address] [place] [address] PCP - General Family Medicine 08/30/22 Rope Walker Relationship Specialty Start Date End Date Giovani Hagen MD [address] [place] [address] [place] [address] PCP - Medical [employer] [employer] 10/22/18 04/23/99 Giovani Hagen MD [address] [place] [address] [place] [address] PCP - General Family Medicine 08/30/22 Rope Walker Relationship Specialty Start Date End Date Giovani Hagen MD [address] [place] [address] [place] [address] PCP - Medical [employer] [employer] 10/22/18 04/23/99 Giovani Hagen MD [address] [place] [address] [place] [address] PCP - General Family Medicine 08/30/22 Rope Walker Relationship Specialty Start Date End Date Giovani Hagen MD [address] [place] [address] [place] [address] PCP - Medical [employer] 10/22/18 04/23/99 Giovani Hagen MD [address] [place] [address] [place] [address] PCP - General Family Medicine 08/30/22 Rope Walker Relationship Specialty Start Date End Date Giovani Hagen MD [address] [place] [address] [place] [address] PCP - General Family Medicine 03/27/19 Rope Walker Relationship Specialty Start Date End Date Giovani Hagen MD [address] [place] [address] [place] [address] PCP - Medical [employer] [employer] 10/22/18 04/23/99 Giovani Hagen MD [address] [place] [address] [place] [address] PCP - General Family Medicine 08/30/22 Rope Walker Relationship Specialty Start Date End Date Giovani Hagen MD [address] [place] [address] [place] [address] PCP - General Family Medicine 03/27/19 Deena Lyn, ISABEL [address] [place] [address] [place] [address] Referring Family Medicine 04/03/24 Rope Walker Relationship Specialty Start Date End Date Giovani Hagen MD [address] [place] [address] [place] [address] PCP - General Family Medicine 03/27/19 Deena Lyn, MANUFACTURER[employer]S REPRESENTATIVE [address] [place] [address] [place] [address] Referring Family Medicine 04/03/24 Rope Walker Relationship Specialty Start Date End Date Giovani Hagen MD [address] [place] [address] [place] [address] PCP - Medical [employer] [employer] 10/22/18 04/23/99 Giovani Hagen MD [address] [place] [address] [place] [address] PCP - General Family Medicine 08/30/22 Rope Walker Relationship Specialty Start Date End Date Giovani Hagen MD [address] [place] [address] [place] [address] PCP - Medical [employer] 10/22/18 04/23/99 Giovani Hagen MD [address] [place] [address] [place] [address] PCP - General Family Medicine 08/30/22 Rope Walker Relationship Specialty Start Date End Date Giovani Hagen MD [address] [facility] [address] [place] [address] PCP - Medical [place] [employer] 10/22/18 04/23/99 Giovani Hagen MD [address] [facility] [address] [place] [address] PCP - General Family Medicine 08/30/22 Rope Walker Relationship Specialty Start Date End Date Giovani Hagen MD [address] [facility] [address] [place] [address] PCP - Medical [place] [employer] 10/22/18 04/23/99 Giovani Hagen MD [address] [facility] [address] [place] [address] PCP - General Family Medicine 08/30/22 Rope Walker Relationship Specialty Start Date End Date Giovani Hagen MD [address] [facility] [address] [place] [address] PCP - Medical [employer] [employer] 10/22/18 04/23/99 Giovani Hagen MD [address] [facility] [address] [place] [address] PCP - General Family Medicine 08/30/22 Rope Walker Relationship Specialty Start Date End Date Giovani Hagen MD [address] [facility] [address] [place] [address] PCP - Medical [employer] 10/22/18 04/23/99 Giovani Hagen MD [address] [facility] [address] [place] [address] PCP - General Family Medicine 08/30/22 Rope Walker Relationship Specialty Start Date End Date Giovani Hagen MD [address] [place] [address] [place] [address] PCP - Medical [employer] [employer] 10/22/18 04/23/99 Giovani Hagen MD [address] [facility] [address] [place] [address] PCP - General Family Medicine 08/30/22 Rope Walker Relationship Specialty Start Date End Date Giovani Hagen MD [address] [facility] [address] [place] [address] PCP - General Family Medicine 03/27/19 Deena Lyn CNP [address] [facility] [address] [place] [address] Referring Family Medicine 04/03/24 Rope Walker Relationship Specialty Start Date End Date Giovani Hagen MD [address] [facility] [address] [place] [address] PCP - Medical [place] [employer] 10/22/18 04/23/99 Giovani Hagen MD [address] [facility] [address] [place] [address] PCP - General Family Medicine 08/30/22 Rope Walker Relationship Specialty Start Date End Date Giovani Hagen MD [address] [facility] [address] [place] [address] PCP - Medical [employer] 10/22/18 04/23/99 Giovani Hagen MD [address] [facility] [address] [place] [address] PCP - General Family Medicine 08/30/22 Rope Walker Relationship Specialty Start Date End Date Giovani Hagen MD [address] [place] [address] [place] [address] PCP - Medical [employer] 10/22/18 04/23/99 Giovani Hagen MD [address] [place] [address] [place] [address] PCP - General Family Medicine 08/30/22 Rope Walker Relationship Specialty Start Date End Date Giovani Hagen MD [address] [place] [address] [place] [address] PCP - General Family Medicine 03/27/19 Deena Lyn, ISABEL [address] [place] [address] [place] [address] Referring Family Medicine 04/03/24 Rope Walker Relationship Specialty Start Date End Date Giovani Hagen MD [address] [place] [address] [place] [address] PCP - General Family Medicine 03/27/19 Deena Lyn, ISABEL [address] [place] [address] [place] [address] Referring Family Medicine 04/03/24 Rope Walker Relationship Specialty Start Date End Date Giovani Hagen MD [address] [place] [address] [place] [address] PCP - General Family Medicine 03/27/19 Deena Lyn, ISABEL [address] [place] [address] [place] [address] Referring Family Medicine 04/03/24 Rope Walker Relationship Specialty Start Date End Date Giovani Hagen MD [address] [place] [address] [place] [address] PCP - Medical [place] [employer] 10/22/18 04/23/99 Giovani Hagen MD [address] [place] [address] [place] [address] PCP - General Family Medicine 08/30/22 Rope Walker Relationship Specialty Start Date End Date Giovani Hagen MD [address] [place] [address] PCP - Medical [place] [facility] 10/22/18 04/23/99 Giovani Hagen MD [address] [place] [address] PCP - General Family Medicine 08/30/22 Rope Walker Relationship Specialty Start Date End Date Giovani Hagen MD [address] [place] [address] PCP - General Family Medicine 03/27/19 Deena Lyn CNP [address] [place] [address] Referring Family Medicine 04/03/24 Rope Walker Relationship Specialty Start Date End Date Giovani Hagen MD [address] [place] [address] PCP - General Family Medicine 03/27/19 Deena Lyn CNP [address] [place] [address] Referring Family Medicine 04/03/24 Rope Walker Relationship Specialty Start Date End Date Giovani Hagen MD [address] [place] [address] PCP - Medical [place] [facility] 10/22/18 04/23/99 Giovani Hagen MD [address] [place] [address] PCP - General Family Medicine 08/30/22 Rope Walker Relationship Specialty Start Date End Date Giovani Hagen MD [address] [place] [address] PCP - Medical [place] [facility] 10/22/18 04/23/99 Giovani Hagen MD [address] [place] [address] PCP - General Family Medicine 08/30/22 Rope Walker Relationship Specialty Start Date End Date Giovani Hagen MD [address] [place] [address] PCP - General Family Medicine 03/27/19 Deena Lyn CNP [address] [place] [address] Referring Family Medicine 04/03/24 Rope Walker Relationship Specialty Start Date End Date Giovani Hagen MD [address] [place] [address] PCP - Medical [place] [facility] 10/22/18 04/23/99 Giovani Hagen MD [address] [place] [address] PCP - General Family Medicine 08/30/22 Rope Walker Relationship Specialty Start Date End Date Giovani Hagen MD [address] [place] [address] PCP - Medical [facility] 10/22/18 04/23/99 Giovani Hagen MD [address] [place] [address] PCP - General Family Medicine 08/30/22 Rope Walker Relationship Specialty Start Date End Date Giovani Hagen MD [address] [place] [address] PCP - General Family Medicine 03/27/19 Deena yLn CNP [address] [place] [address] Referring Family Medicine 04/03/24 Rope Walker Relationship Specialty Start Date End Date Giovani Hagen MD [address] [place] [address] PCP - General Family Medicine 03/27/19 Deena Lyn CNP [address] [facility] [address] [place] [address] Referring Family Medicine 04/03/24 Source Comments (unrecognize d section and content) In the event this informatio n is protected by the Federal Confidentiality of Alcohol and Drug Abuse Patient Records regulations: The Federal rules restrict any use of the information to criminally investigate or prosecute any alcohol or drug abuse patient.[facility] the event this information is protected by the Federal Confidentiality of Alcohol and Drug Abuse Patient Records regulations: The Federal rules restrict any use of the information to criminally investigate or prosecute any alcohol or drug abuse patient.[facility]In the event this information is protected by the Federal Confidentiality of Alcohol and Drug Abuse Patient Records regulations: The Federal rules restrict any use of the information to criminally investigate or prosecute any alcohol or drug abuse patient.[facility]In the event this information is protected by the Federal Confidentiality of Alcohol and Drug Abuse Patient Records regulations: The Federal rules restrict any use of the information to criminally investigate or prosecute any alcohol or drug abuse patient.[facility]In the event this information is protected by the Federal Confidentiality of Alcohol and Drug Abuse Patient Records regulations: The Federal rules restrict any use of the information to criminally investigate or prosecute any alcohol or drug abuse patient.[facility]In the event this information is protected by the Federal Confidentiality of Alcohol and Drug Abuse Patient Records regulations: The Federal rules restrict any use of the information to criminally investigate or prosecute any alcohol or drug abuse patient.[facility]In the event this information is protected by the Federal Confidentiality of Alcohol and Drug Abuse Patient Records regulations: The Federal rules restrict any use of the information to criminally investigate or prosecute any alcohol or drug abuse patient.[facility]In the event this information is protected by the Federal Confidentiality of Alcohol and Drug Abuse Patient Records regulations: The Federal rules restrict any use of the information to criminally investigate or prosecute any alcohol or drug abuse patient.[facility]In the event this information is protected by the Federal Confidentiality of Alcohol and Drug Abuse Patient Records regulations: The Federal rules restrict any use of the information to criminally investigate or prosecute any alcohol or drug abuse patient.[facility] HospitalIn the event this information is protected by the Federal Confidentiality of Alcohol and Drug Abuse Patient Records regulations: The Federal rules restrict any use of the information to criminally investigate or prosecute any alcohol or drug abuse patient.[facility] HospitalIn the event this information is protected by the Federal Confidentiality of Alcohol and Drug Abuse Patient Records regulations: The Federal rules restrict any use of the information to criminally investigate or prosecute any alcohol or drug abuse patient.[facility] HospitalIn the event this information is protected by the Federal Confidentiality of Alcohol and Drug Abuse Patient Records regulations: The Federal rules restrict any use of the information to criminally investigate or prosecute any alcohol or drug abuse patient.[facility] HospitalIn the event this information is protected by the Federal Confidentiality of Alcohol and Drug Abuse Patient Records regulations: The Federal rules restrict any use of the information to criminally investigate or prosecute any alcohol or drug abuse patient.[facility]In the event this information is protected by the Federal Confidentiality of Alcohol and Drug Abuse Patient Records regulations: The Federal rules restrict any use of the information to criminally investigate or prosecute any alcohol or drug abuse patient.[facility] HospitalIn the event this information is protected by the Federal Confidentiality of Alcohol and Drug Abuse Patient Records regulations: The Federal rules restrict any use of the information to criminally investigate or prosecute any alcohol or drug abuse patient.[facility] HospitalIn the event this information is protected by the Federal Confidentiality of Alcohol and Drug Abuse Patient Records regulations: The Federal rules restrict any use of the information to criminally investigate or prosecute any alcohol or drug abuse patient.[facility] HospitalIn the event this information is protected by the Federal Confidentiality of Alcohol and Drug Abuse Patient Records regulations: The Federal rules restrict any use of the information to criminally investigate or prosecute any alcohol or drug abuse patient.[facility] HospitalIn the event this information is protected by the Federal Confidentiality of Alcohol and Drug Abuse Patient Records regulations: The Federal rules restrict any use of the information to criminally investigate or prosecute any alcohol or drug abuse patient.[facility] HospitalIn the event this information is protected by the Federal Confidentiality of Alcohol and Drug Abuse Patient Records regulations: The Federal rules restrict any use of the information to criminally investigate or prosecute any alcohol or drug abuse patient.[facility] HospitalIn the event this information is protected by the Federal Confidentiality of Alcohol and Drug Abuse Patient Records regulations: The Federal rules restrict any use of the information to criminally investigate or prosecute any alcohol or drug abuse patient.[facility] HospitalIn the event this information is protected by the Federal Confidentiality of Alcohol and Drug Abuse Patient Records regulations: The Federal rules restrict any use of the information to criminally investigate or prosecute any alcohol or drug abuse patient.[facility] HospitalIn the event this information is protected by the Federal Confidentiality of Alcohol and Drug Abuse Patient Records regulations: The Federal rules restrict any use of the information to criminally investigate or prosecute any alcohol or drug abuse patient.[facility] HospitalIn the event this information is protected by the Federal Confidentiality of Alcohol and Drug Abuse Patient Records regulations: The Federal rules restrict any use of the information to criminally investigate or prosecute any alcohol or drug abuse patient.[facility] HospitalIn the event this information is protected by the Federal Confidentiality of Alcohol and Drug Abuse Patient Records regulations: The Federal rules restrict any use of the information to criminally investigate or prosecute any alcohol or drug abuse patient.[facility] HospitalIn the event this information is protected by the Federal Confidentiality of Alcohol and Drug Abuse Patient Records regulations: The Federal rules restrict any use of the information to criminally investigate or prosecute any alcohol or drug abuse patient.[facility] HospitalIn the event this information is protected by the Federal Confidentiality of Alcohol and Drug Abuse Patient Records regulations: The Federal rules restrict any use of the information to criminally investigate or prosecute any alcohol or drug abuse patient.[facility] HospitalIn the event this information is protected by the Federal Confidentiality of Alcohol and Drug Abuse Patient Records regulations: The Federal rules restrict any use of the information to criminally investigate or prosecute any alcohol or drug abuse patient.[facility] HospitalIn the event this information is protected by the Federal Confidentiality of Alcohol and Drug Abuse Patient Records regulations: The Federal rules restrict any use of the information to criminally investigate or prosecute any alcohol or drug abuse patient.[facility] HospitalIn the event this information is protected by the Federal Confidentiality of Alcohol and Drug Abuse Patient Records regulations: The Federal rules restrict any use of the information to criminally investigate or prosecute any alcohol or drug abuse patient.[facility] HospitalIn the event this information is protected by the Federal Confidentiality of Alcohol and Drug Abuse Patient Records regulations: The Federal rules restrict any use of the information to criminally investigate or prosecute any alcohol or drug abuse patient.[facility] HospitalIn the event this information is protected by the Federal Confidentiality of Alcohol and Drug Abuse Patient Records regulations: The Federal rules restrict any use of the information to criminally investigate or prosecute any alcohol or drug abuse patient.[facility] HospitalIn the event this information is protected by the Federal Confidentiality of Alcohol and Drug Abuse Patient Records regulations: The Federal rules restrict any use of the information to criminally investigate or prosecute any alcohol or drug abuse patient.[facility] HospitalIn the event this information is protected by the Federal Confidentiality of Alcohol and Drug Abuse Patient Records regulations: The Federal rules restrict any use of the information to criminally investigate or prosecute any alcohol or drug abuse patient.[facility] HospitalIn the event this information is protected by the Federal Confidentiality of Alcohol and Drug Abuse Patient Records regulations: The Federal rules restrict any use of the information to criminally investigate or prosecute any alcohol or drug abuse patient.[facility] HospitalIn the event this information is protected by the Federal Confidentiality of Alcohol and Drug Abuse Patient Records regulations: The Federal rules restrict any use of the information to criminally investigate or prosecute any alcohol or drug abuse patient.[facility] HospitalIn the event this information is protected by the Federal Confidentiality of Alcohol and Drug Abuse Patient Records regulations: The Federal rules restrict any use of the information to criminally investigate or prosecute any alcohol or drug abuse patient.[facility] HospitalIn the event this information is protected by the Federal Confidentiality of Alcohol and Drug Abuse Patient Records regulations: The Federal rules restrict any use of the information to criminally investigate or prosecute any alcohol or drug abuse patient.[facility] HospitalIn the event this information is protected by the Federal Confidentiality of Alcohol and Drug Abuse Patient Records regulations: The Federal rules restrict any use of the information to criminally investigate or prosecute any alcohol or drug abuse patient.[facility] HospitalIn the event this information is protected by the Federal Confidentiality of Alcohol and Drug Abuse Patient Records regulations: The Federal rules restrict any use of the information to criminally investigate or prosecute any alcohol or drug abuse patient.[facility] HospitalIn the event this information is protected by the Federal Confidentiality of Alcohol and Drug Abuse Patient Records regulations: The Federal rules restrict any use of the information to criminally investigate or prosecute any alcohol or drug abuse patient.[facility] HospitalIn the event this information is protected by the Federal Confidentiality of Alcohol and Drug Abuse Patient Records regulations: The Federal rules restrict any use of the information to criminally investigate or prosecute any alcohol or drug abuse patient.[facility] HospitalIn the event this information is protected by the Federal Confidentiality of Alcohol and Drug Abuse Patient Records regulations: The Federal rules restrict any use of the information to criminally investigate or prosecute any alcohol or drug abuse patient.[facility] HospitalIn the event this information is protected by the Federal Confidentiality of Alcohol and Drug Abuse Patient Records regulations: The Federal rules restrict any use of the information to criminally investigate or prosecute any alcohol or drug abuse patient.[facility] HospitalIn the event this information is protected by the Federal Confidentiality of Alcohol and Drug Abuse Patient Records regulations: The Federal rules restrict any use of the information to criminally investigate or prosecute any alcohol or drug abuse patient.[facility] HospitalIn the event this information is protected by the Federal Confidentiality of Alcohol and Drug Abuse Patient Records regulations: The Federal rules restrict any use of the information to criminally investigate or prosecute any alcohol or drug abuse patient.[facility] HospitalIn the event this information is protected by the Federal Confidentiality of Alcohol and Drug Abuse Patient Records regulations: The Federal rules restrict any use of the information to criminally investigate or prosecute any alcohol or drug abuse patient.[facility] HospitalIn the event this information is protected by the Federal Confidentiality of Alcohol and Drug Abuse Patient Records regulations: The Federal rules restrict any use of the information to criminally investigate or prosecute any alcohol or drug abuse patient.[facility] Reason for Visit (unrecogniz ed section [...] & [place] [address] [place] [address] [place] [address] Referral ID Status Reason Start Date Expiration Date V isits Requested Visits Authorized [id number] Closed Auto-Generate d Referral 05/27/2022 06/26/2023 1 [...] Received Outside Medical Records [facility] [place] Reason Comments Received Outside Medical Records Cardio Clearance [facility] [place] Reason Comments Back Pain Reason Comments Dyspareunia [...] ligament of right ankle, subsequent encounter Procedures [place] OFFICE/OUTPATIENT NEW HIGH MDM Giovani Hagen MD [address] [place] [address] Phone: tel: fax: Prateek Pedraza DPM [address] [place] [address] Phone: tel: fax: Referral ID Status Reason Start Date Expiration Date V isits Requested Visits Authorized [id number] Closed Specialty Services Required 04/22/2024 10/19/2024 1 1 Reason Comments New Pain Swelling Reason Onset Date Comments Med Refill 05/08/2024 Reason Comments next steps Reason Comments Follow-up FU RT ankle- discuss surgery Reason Comments Pre-op Visit Pt present today for a pre operative visit. Pt is scheduled for a Reason Comments Results C diff Goals (unrecognized section and content) Goals may [...] BE BASED ON THE PRIMARY CLINICAL RECORDS. [employer] provides no warranty or guarantee of the accuracy or completeness of information in this document.
[2024-05-27 16:21] LABS: Estimated Average Glucose 126 mg/dL
[2024-05-29 05:06] LABS: HBsAg Screen Negative (Negative); HCV Ab Non Reactive (Non Reactive); Hep A Ab, IgM Negative (Negative); Hep B Core Ab, IgM Negative (Negative)
== END 2024-05-27 15:51 | disposition home or self-care (01) ==
LOC: LAB 15:50
PROVIDERS: PCP Family Medicine; Visit Provider Obstetrics & Gynecology
DX: R74.8 Abnormal levels of other serum enzymes (principal); R73.09 Other abnormal glucose
CPT/HCPCS: 36415; 80074; 83036

== ENCOUNTER 2024-07-07 17:20 | Emergency (ER) | payer OTHER, SELFPAY ==
[2024-07-07 17:25] VITALS: BP 114/89; PULSE 100; TEMP 36.9; O2SAT 98; BMI 34.8
--- OUTSIDE RECORDS SUMMARY | 2024-07-07 17:28 | XMS_ITS | CCD ---
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 Name Role Phone OZIEL MONTEIRO Referring Unavailable GIOVANI HAGEN Primary Care Unavailable MD Erwin Hylton Attending Provider [phone] MD Giovani Hagen Primary Care Provider [phone] Giovani Hagen Primary Care Provider Erwin Hylton Unavailable GIOVANI HAGEN Primary Care Physician [phone] [place] ., DR SIMON Consulting Unavailabl e [...] ., AYLEEN Consulting Unavailable REINECK, DR RONALD Mccarthy Attending [...] Imad Admitting Unavailable Asaad, Imad Attending Unavailable Hieu, [facility] Primary Care Unavailable Asaad, Imad Admitting Unavailable Asaad, Imad Attending Unavailable [facility] Giovani Hagen MD Primary Care Provider BLOODMARY Admitting Unavailable BLOODMARY Attending Unavailable JACKSON MONTENEGRO Consulting Unavailable SONIYA PATEL Referring Unavailable HIEU, KIRANEN Primary Care Unavailable MAKENNA AMAYA Consulting Unavailable Giovani Hagen MD Primary Care Provider Madhuri MISHRA Attending Unavailable BHAVESH DEJESUS Attending Unavailable Giovani Hagen MD Unavailable Giovani Hagen MD Primary Care Provider Deena Lyn CNP Unavailable [phone] SOLO MORA Referring Unavailable HIEU, [facility] Primary Care Unavailable ILIANA MERCADO Referring Unavailable HIEU, [facility] Primary Care Unavailable SOLO MORA Referring Unavailable HIEU, [facility] Primary Care Unavailable SOLO MORA Attending Unavailable HIEU, [facility] Primary Care Unavailable HIEU, [facility] Primary Care Unavailable OBED BHATT Attending Unavailable ILIANA MERCADO Referring Unavailable HIEU, [facility] Primary Care Unavailable ILIANA MERCADO Referring Unavailable HIEU, [facility] Primary Care Unavailable ILIANA MERCADO Attending Unavailable HIEU, [facility] Primary Care Unavailable LYDIA KELLEY Attending Unavailab le HIEU, [facility] Primary Care Unavailable MILTON FRAIRE Attending Unavailable MILTON FRAIRE Referring Unavailable AYLEEN MCWILLIAMS Attending Unavailable HIEUKIRANEN M Attending Unavailable PRATEEK PEDRAZA Attending Unavailable DARWIN STARR Attending Unavailable MILTON FRAIRE Attending Unavailable MILTON FRAIRE Attending Unavailable MILTON FRAIRE Referring Unavailable HIEU, RUGEN M Attending Unavailable CADE WILCOX Attending Unavailable HIEU, RUGEN [...] Attending Unavailable HIEU, RUGEN M Referring Unavailable CLARYBLEYANITRA Attending Unavailable HIEU, RUGEN M Referring Unavailable [...] STARR Attending Unavailable PRATEEK PEDRAZA Attending Unavailable GIOVANI HAGEN Referring Unavailable GIOVANI HAGEN Attending Unavailable Allergies Allergy Classification Reported Allergen(s) Allergy Type Date of Onset Reaction(s) Facility Iodine (and Iodine containting drugs) (2 sources) Iodine Drug Allergy 04-11-20 19 Swelling, Itching [facility] Iohexol (2 sources) Iohexol Drug Allergy 04-12-[address] [facility] (20 sources) Iodine; Translations: [IODINE] Drug Allergy 04-11-20 Swelling, Itching [facility] (20 sources) Iohexol; Translations: [IOHEXOL] Drug Allergy 04-12-[address] [facility] (1 source) Cat Propensity to adverse reactions anaphylaxis [facility] Other (1 source) tree nut, unspecified Propensity to adverse reactions anaphylaxis [facility] Other (1 source) peanut allergenic extract Drug Allergy [facility] Repository (1 source) Cat/Feline Product Derivatives Drug allergy (disorder) 01-08-20 13 [facility] Repository (1 source) No Known Medication Allergies; Translations: [No Known Medication Allergies] Propensity to adverse reactions (disorder) [facility] Repository (20 sources) Cat Hair Extract Allergy to substance 12-01-19 23 Anaphylaxis [facility] (20 sources) Iodinated Contrast Media Drug Allergy 12-01-19 23 Hives [facility] (20 sources) Prednisone & Diphenhydramine Drug Allergy 10-03-19 24 [facility] Medications Current Medications Medication Drug Class(es) Dates [...] every six hours for pain HYDROcodone-acetami nophen ([place]) 5-325 MG tablet Indications: Cervical radiculopathy due to degenerative joint disease of spine Take 1 tablet by mouth every 6 (six) hours if needed for severe pain for up to 5 days 20 tablet 05/09/2024 05/14/2024 Active Start: 04-16-2024 End: 04-21-2024 take 1 tablet by mouth every six hours for pain HYDROcodone-acetaminophen ([place]) 5-325 MG tablet Indications: Sprain of anterior [...] as needed Inhalation every 4 hrs Active 24 hr amphetamine aspartate 2.5 mg / amphetamine sulfate 2.5 mg / dextroamphetamine saccharate 2.5 mg / dextroamphetamine sulfate 2.5 mg extended release oral capsule (20 sources) Central Nervous System Stimulant Start: 06-06-2024 End: 07-06-2024 take 1 capsule by mouth every twenty-four hours in the morning amphetamine-dextroamphetamine XR (Adderall XR) 10 MG 24 hr capsule Indications: Attention deficit hyperactivity disorder (ADHD), predominantly inattentive type (CMS/HCC) , Bipolar disorder, in partial remission, most recent episode manic (CMS/HCC) , 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CMS/HCC) Take 1 capsule (10 mg) by mouth in the morning. Do not crush or chew. Take with the 30mg tablet. 30 capsule 06/06/2024 07/06/2024 Active Start: 11-30-2023 End: 07-06-2024 take 1 capsule by mouth once daily amphetamine-dextroamphetamine XR (Addera ll XR) 30 MG 24 hr capsule Indications: Attention deficit hyperactivity disorder (ADHD), predominantly inattentive type (CMS/HCC) Take 1 capsule (30 mg) by mouth Daily Do not crush or chew. Take with the 10mg daily 30 capsule 06/06/2024 07/06/2024 Active bismuth subcitrate 140 mg / metroNIDAZOLE 125 mg / tetracycline hydrochloride 125 mg oral capsule (1 source) Nitroimidazole Antimicrobial, Tetracycline-class Antimicrobial Start: 07-04-2022 End: 07-14-2022 take 3 capsules by mouth at bedtime Bis Subcit Wfx-Dsimb-Mdddywnz (PYLERA) 140-125-125 mg per capsule Take 3 [...] Discontinued (Other) take 1 tablet by vanna th every [...] in partial remission, most recent episode manic ([facility]/HCC) TAKE 1 CAPSULE BY MOUTH EVERY DAY 30 capsule 5 08/14/2023 Active Start: 05-01-2019 take 1 capsule by mo uth once daily Vraylar 1.5 mg oral capsule 1.5 mg = 1 cap(s), Oral, Daily Start Date: 05/01/19 Status: Ordered take 1 capsule by mo ut once daily cariprazine (VRAYLAR) 3 mg cap Take by mouth once daily. 0 Active Vraylar Active Comment on above: Take by mouth once d aily. 1 capsule. cefuroxime 500 mg oral tablet (5 sources) Cephalosporin Antibacterial Start: 4 End: 5 take 1 tablet by mouth in the morning cefuroxime (Ceftin) 500 MG tablet Indications: Acute bronchitis with asthma ([facility]) Take 1 tablet (500 mg) by mouth in the morning and 1 tablet (500 mg) before bedtime. Do all this for 10 days. 20 tablet 04/18/2024 04/28/2024 Active cephalexin 250 mg oral capsule (20 sources) Cephalosporin Antibacterial Start: 4 cephalexin (Keflex) 250 MG capsule TAKE 1 CAPSULE BY MOUTH AFTER INTERCOURSE TO PREVENT UTI 03/13/2024 Active Start: 12-28-2023 Keflex 250 mg Cap See Instructions, 1 cap po after intercourse to prevent UTI, # 20 cap(s), Refills(s) 2, Pharmacy: [facility]/pharmacy #[id number], 158, cm, 12/28/23 15:24:00 EDT, [...] days., # 50 cap(s), Refills(s) 0, Pharmacy: [facility]/pharmacy #[id number], 158, cm, 06/29/22 8:19:00 EST, [...] days. 60 g 1 01/22/2024 03/22/2024 Active clomiPRAMINE hydrochloride 25 mg oral capsule (2 sources) Tricyclic Antidepressant Start: 07-04-2024 End: 07-04-2025 take 1 capsule by mouth at bedtime clomiPRAMINE (Anafranil) 25 MG capsule Indications: Anxiety , 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CMS/HCC) Take 1 capsule (25 mg) by mouth at bedtime 30 capsule 11 07/04/2024 07/04/2025 Active clonazePAM 0.5 mg oral tablet (4 sources) Benzodiazepine Start: 04-01-2024 End: 05-01-2024 take 1 tablet by mouth in the morning clonazePAM (KlonoPIN) 0.5 MG tablet Indications: Tremors of nervous system Take 1 tablet (0.5 mg) by mouth in the morning and 1 tablet (0.5 mg) before bedtime. 60 tablet 04/01/2024 05/01/2024 Active escitalopram 20 mg oral tablet (20 sources) Serotonin Reuptake Inhibitor Start: 06-06-2024 End: 07-06-2024 take 1.5 tablets by mouth in the morning escitalopram (Lexapro) 20 MG tablet Indications: Bipolar disorder, in partial remission, most recent episode manic (CMS/HCC) Take 1.5 tablets (30 mg) by mouth in the morning. 45 tablet 2 06/06/2024 07/06/2024 Active Start: 11-09-2023 End: 06-06-2024 take 1 tablet by mouth once daily in the morning escitalopram (Lexapro) 20 MG tablet Indications: Bipolar disorder, in partial remission, most recent episode manic (CMS/HCC) TAKE 1 TABLET BY MOUTH EVERY DAY IN THE MORNING 30 tablet 2 05/13/2024 06/06/2024 Discontinued (Reorder) fluticasone/umeclidin/vilant er (TRELEGY ELLIPTA INHALATION) (3 sources) fluticasone/umec lidin/vilanter (TRELEGY ELLIPTA INHALATION) Inhale as instructed. Active hydrOXYzine pamoate 25 mg or al capsule (2 sources) Antihistamine S t a r t : 0 3 - 1 3 - 2 0 2 5 E n d : 0 3 - 2 3 - 2 0 2 5 take 1 capsule by mouth every six hours hydrOXYzine pamoate (Vistaril) 25 MG capsule Indications: Anxiety , PTSD (post-traumatic stress disorder) ([facility]) Take 1 capsule (25 mg) by mouth every 6 (six) hours if needed for itching for up to 10 days 30 capsule 07/04/2024 07/14/2024 Active ibuprofen 800 mg oral tablet (2 sources) Nonsteroidal Anti-inflamma tory Drug S t a r t : 0 2 - 1 9 - 2 0 1 9 take 800 mg by mouth once daily as needed for pain ibuprofen 800 mg, Oral, Daily, PRN as needed for pain, Refills(s) 0 Start Date: 06/12/18 Status: Ordered LORazepam 0.5 mg oral tablet (2 sources) Benzodiazepin e S t a r t : 0 3 - 1 3 - 2 0 2 5 E n d : 0 4 - 1 2 - 2 0 2 5 take 1 tablet by mouth in the morning LORazepam (Ativan) 0.5 MG tablet Indications: Anxiety , PTSD (post-traumatic stress disorder) ([facility]) Take 1 tablet (0.5 mg) by mouth in the morning and in the evening 30 tablet 07/04/2024 08/03/2024 Active montelukast 10 mg oral table t (20 sources) Leukotriene Receptor Antagonist S t a r t : 1 2 - 0 9 - 2 0 2 4 E n d : 1 2 - 0 9 - 2 0 2 5 take 1 tablet by mouth at bedtime montelukast (Singulair) 10 MG tablet Indications: Mild intermittent asthma without complication ([facility]) Take 1 tablet (10 mg) by mouth [...] morning. Take before meals. 30 tablet 04/30/2024 Active 0.25 mg, 0.5 mg dose 1.5 ml semaglutide 1.34 mg/ml pen injector (16 sources) S t a r t : 0 2 - 1 4 - 2 0 2 5 semaglutide (Ozempic) inject ion 0.25 mg traMADol hydrochloride 50 mg oral tablet (8 [...] Class(es) Dates Sig (Normalized) Sig (Original) acetaminophen 325 mg / oxyCODONE hydrochloride 5 mg oral tablet (6 sources) Opioid Agonist Start: 06-12-2024 End: 06-25-2024 oxyCODONE-acetamino phen (Percocet) 5-325 MG tablet Indications: Pain Take 1 tablet by mouth every 6 (six) hours if needed for severe pain for up to 5 days TAKE 1 PILL P.O. Q.6H P.R.N. PAIN 15 tablet 06/19/2024 06/25/2024 Discontinued ALPRAZolam 0.5 mg oral tablet (20 sources) Benzodiazepine Start: 06-19-2024 End: 07-19-2024 take 1 tablet by mouth in the morning ALPRAZolam (Xanax) 0.5 MG tablet Indications: Anxiety , Bipolar disorder, in partial remission, most recent episode manic (CMS/HCC) Take 1 tablet (0.5 mg) by mouth in the morning and in the evening 60 tablet 06/19/2024 07/04/2024 Discontinued (Ineffective) Start: 05-10-2024 End: 06-09-2024 take 1 tablet by mouth in the morning ALPRAZolam (Xanax) 0.5 MG tablet Indications: Anxiety , Bipolar disorder, in partial remission, most recent episode manic (CMS/HCC) Take 1 tablet (0.5 mg) by mouth in the morning and in the evening 60 tablet 05/10/2024 Active Start: 04-08-2024 End: 05-08-2024 take 1 [...] 0.25 mg by mout h twice daily. amoxicillin 875 mg oral tablet (1 source) Penicillin-class Antibacterial Start: 05-03-19 take 1 tablet by mouth every twelve hours Amoxicillin 875 MG 1 tablet Orally Twice a day for 7 days Apr, Not-Taking baclofen 10 mg oral tablet (20 sources) gamma-Aminobutyric Acid-ergic Agonist Start: 12-26-19 24 End: 05-09-19 25 take 1 tablet by mouth in the [...] 120 capsule 03/20/2024 04/18/2024 Discontinued (Therapy completed) 0.3 ml EPINEPHrine 1 mg/ml prefilled syringe (20 sources) alpha-Adrenergic Agonist, beta-Adrenergic Agonist, Catecholamine Start: 04-18-2023 End: 06-25-2024 EPINEPHrine (Adrenalin) 0.3 MG/0.3ML injection Indications: Anaphylaxis, sequela Inject 0.3 mL (0.3 mg) into the shoulder, thigh, or buttocks 1 (one) time for 1 dose 1 each 2 04/18/2023 06/25/2024 Discontinued EpiPen prn Activ e estrogens, conjugated (halfway) 0.625 mg/ml vaginal cream (20 sources) Estrogen [...] Anticholinergic, Corticosteroid, beta2-Adrenergic Agonist Start: 04-16-2024 End: 06-25-2024 take 1 puff(s) by inhalation once daily Vwoolopyghy-Zejmzbgvi-Kjugsd 100-62.5-25 MCG/ACT aerosol powder Indications: Moderate persistent asthmatic bronchitis with acute exacerbation (CMS/HCC) Inhale 1 puff Daily 1 each 04/16/2024 06/25/2024 Discontinued Start: 05-24-2022 take 1 puff(s) by inhalation once daily Nfxriqsdxzh-Fqezokrgg-Uclazt 100-62.5-25 MCG/ACT aerosol powder INHALE 1 PUFF INTO THE LUNGS EVERY DAY FOR 30 DAYS 05/24/2022 Active Start: 05-24-2022 End: 11-02-2022 TRELEGY ELLIPTA 100-62.5-25 mcg inhalation powder 05/24/2022 11/02/2022 Discontinued furosemide 20 mg oral tablet (20 sources) [...] 12/19/2023 Discontinued (Other) take 1 capsule by [facility] every twenty-four hours Vyvanse 50 MG [...] Comment on above: TAKE 1 CAPSULE BY [facility] EVERY DAY IN THE MORNING FOR 30 [...] for nausea or vomiting 30 tablet 2 05/27/2024 06/26/2024 Start: 04-01-2024 End: 05-01-2024 take 1 tablet by mouth every six [...] for 10 days. Take 1 tablet by [facility] twice daily before meals for 14 days. 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] Onset: 5 07-04-2024 Chronic Miscellaneous mental health disorders (20 sources) Hypersexuality [...] knee, unspecified] Onset: 0 12-12-2022 Chronic Other acquired deformities (2 sources) Contracture of joint of right ankle; Translations: [Contracture, right ankle] 06-19-2024 Chronic Other aftercare (2 sources) Surgical follow-up; Translations: [Encounter for follow-up examination after completed treatment for conditions other than malignant neoplasm] 05-29-2024 Episodic Other bone disease and musculoskeletal deformities (4 sources) Osteochondritis dissecans of right ankle; Translations: [Osteochondritis dissecans, right ankle and joints of right foot] 05-08-2024 Chronic Other connective tissue disease (4 sources) Pain in right foot; Translations: [Pain in right foot] 05-15-2024 Episodic Other female genital disorders (4 sources) Unspecified dyspareunia; Translations: [UNSPECIFIED DYSPAREUNIA] Onset: 2 Chronic Other female genital disorders (5 sources) Pain in female genitalia on intercourse; [...] region] 04-03-2024 Episodic Other non-traumatic joint disorders (7 sources) Instability of joint of right ankle; [...] not elsewhere classified] Onset: 3 09-23-2022 Chronic Syncope (4 sources) Syncope and collapse; Translations: [...] [Dizziness and giddiness] Onset: 12-13-2022 12-13-2022 Episodic E Codes: Fall (1 source) Unspecified [...] [Tremor, unspecified] Onset: 09-23-2022 04-01-2024 Episodic Other non-traumatic joint disorders (20 sources) Shoulder pain; Translations: [Pain in left shoulder] Onset: 04-03-2024 04-03-2024 Episodic Other nutritional; endocrine; and metabolic disorders [...] region] Onset: 09-23-2022 Resolved: 02-06-2023 12-26-2023 Episodic Sprains and strains (20 sources) Sprain of talofibular ligament of right ankle; Translations: [Sprain of other ligament of right ankle, initial encounter] Onset: 04-01-2024 04-01-2024 Episodic Substance-related disorders (20 sources) Smoker; Translations: [...] Test Name Value Interpretation Reference Range Facility XR Ankle - right 3 Viewson 0 07-03-2024 Imaging Result: Three views were taken today AP/MORT/LAT Ankle: No fractures or dislocations seen joint in good position and alignment [facility] Study observation (narrative) [facility] RECURRENT VAGINITIS (HTRX)on 06-26-2024 ATOPOBIUM VAGINAE 0 [facility] ATOPOBIUM VAGINAE Not detected [facility] BVAB 2,3 (BACTERIAL VAGINOSIS ASSOCIATED BACTERIA 2, 3); MOBILUNCUS SPP 0 [facility] BVAB 2,3 (BACTERIAL VAGINOSIS ASSOCIATED BACTERIA 2, 3); MOBILUNCUS SPP Not detected [facility] SHARIF ALBICANS, PARAPSILOSIS, TROPICALIS 0 [facility] SHARIF ALBICANS, PARAPSILOSIS, TROPICALIS Not detected [facility] SHARIF GLABRATA 0 [facility] SHARIF GLABRATA Not detected [facility] SHARIF KRUSEI 0 [facility] SHARIF KRUSEI Not detected [facility] CHLAMYDIA TRACHOMATIS 0 [facility] CHLAMYDIA TRACHOMATIS Not detected N [facility] GARDNERELLA VAGINALIS 0 [facility] GARDNERELLA VAGINALIS Not detected N [facility] MEGASPHAERA (TYPES 1, 2) 0 [facility] MEGASPHAERA (TYPES 1, 2) Not detected [facility] MYCOPLASMA GENITALIUM 0 [facility] MYCOPLASMA GENITALIUM Not detected [facility] NEISSERIA GONORRHOEAE 0 [facility] NEISSERIA GONORRHOEAE Not detected [facility] TRICHOMONAS VAGINALIS 0 [facility] TRICHOMONAS VAGINALIS Not detected [facility] MLR HEMOGLOBIN A1Con 025 Glucose [Mass/Vol] 126 mg/dL [facility] HbA1c (Bld) [Mass fraction] 6 % 4.5 - 6.2 % [facility] Comment on above: ADA RECOMMENDED LIMI T 4.0 - 6.0 ADA THERAPEUTIC TARGET < 7.0 ACTION SUGGESTED > 7.0 [facility] ALL CBC WITH AUTO DIFFon BASOPHILS ABSOLUTE AUTO 0 [facility] Basophils/100 WBC (Bld) 0.4 % 0.2 - 2.0 % [facility] Eosinophils/100 WBC (Bld) 4.4 % 0.9 - 7.0 % [facility] Erythrocyte distribution width (RBC) [Ratio] 13.2 % 11.0 - 15.0 % [facility] Hematocrit (Bld) [Volume fraction] 41.6 % 36.0 - 48.0 % [facility] Hemoglobin (Bld) [Mass/Vol] 14 g/dL 12.0 - 16.0 g/dL [facility] IMMATURE GRANULOCYTES ABS AUTO 0.13 High [facility] Immature granulocytes/100 WBC (Bld) 1.6 % High 0.0 - 0.5 % [facility] Interpretation and review of laboratory results Abnormal [facility] LYMPHOCYTES ABSOLUTE AUTO 2.7 [facility] Lymphocytes/100 WBC (Bld) 33.8 % 20.5 - 60.0 % [facility] MCH (RBC) [Entitic mass] 32.6 pg 26.7 - 34.0 pg [facility] MCHC (RBC) [Mass/Vol] 33.7 g/dL 29.9 - 35.2 g/dL [facility] MCV (RBC) [Entitic vol] 96.7 fL 81.0 - 99.0 fL [facility] MONOCYTES ABSOLUTE AUTO 0.5 [facility] Monocytes/100 WBC (Bld) 5.9 % 1.7 - 12.0 % [facility] NEUTROPHILS ABSOLUTE AUTO 4.4 [facility] Neutrophils/100 WBC (Bld) 53.9 % 43.0 - 75.0 % [facility] Platelet mean volume (Bld) [Entitic vol] 10.4 fL 9.5 - 13.5 fL [facility] EO # 0.4 [facility] PLT 257 [facility] RBC 4.3 [facility] WBC 8.1 [facility] C. difficile toxin genes SHEILA +probe Ql (Stl)on 05-23-2024 Interpretation and review of laboratory results Abnormal [facility] CLOSTRIDIUM DIFFICILE TOXIN BY PCRon 05-23-2024 C. difficile toxin genes SHEILA+probe Ql (Stl) Positive Abnormal Negative for C. difficile toxin by PCR [facility] Comment on above: A positive PCR [...] pre-agreed criteria for specimen submission. [place] 05-23-2024 ISABELN Telephone (TANI) ORION HARPER ([id number]) 1990 F Date Time Provider Department 05/23/24 ILIANA MERCADO During your visit today, we recorded the following information about you: Benito Soriano RN 05/23/2024 3:25 PM Signed ----- Message from [...] Encounter Status:Closed by BENITO SORIANO on 05/24/24 [facility] ANES POSTPROC EVALon 025 ANES POSTPROC EVAL HNO ID: [id number] Author: OBED BHATT APRN.CRNA Service: Anesthesiology Author Type: Nurse [employer]gun [employer] Assembly Machine Operator Type: Anesthesia Postprocedure Evaluation Filed: 05/22/2024 14:22 Note Text: POST ANESTHESIA EVALUATION NOTE : 1990 Procedure Summary Date: 05/22/24 Room / Location: Ambulatory Surgery Anesthesia Start: 1345 Anesthesia Stop: 1422 Procedure: COLONOSCOPY DIAGNOSTIC Diagnosis: [...] May 22, 2024 TIME: 2:22 PM CSN: [id number] [facility] ANES PRE-OPon 05-22-2024 ANES PRE-OP HNO ID: [id number] Author: OBED BHATT APRN.CRNA Service: Anesthesiology Author Type: Nurse [employer]gun [employer] Assembly Machine Operator Type: Anesthesia Preprocedure Evaluation Filed: 05/22/2024 14:23 [...] and consent discussed: yes. Patient / Responsible Libertarian agrees to proceed: yes Patient / Surrogate [...] May 22, 2024 TIME: 2:22 PM CSN: [id number] [facility] ANE PRE-OP HNO ID: [id number] Author: OBED BHATT APRN.CRNA Service: Anesthesiology Author Type: Nurse Shotgun [employer] Assembly Machine Operator Type: Anesthesia Preprocedure Evaluation Filed: 05/22/2024 14:21 [...] and consent discussed: yes. Patient / Responsible Libertarian agrees to proceed: yes Patient / Surrogate [...] 48 hours of Surgery/Procedure. SIGNATURE: Obed Bhatt APRN.CLAIMS SPECIALIST PATIENT NAME: Orion Harper DATE: May 22, 2024 TIME: 2:18 PM CSN: [id number] [facility] C diff Tox gens Stl Ql SHEILA+p robeon 05-22-2024 C. difficile toxin genes SHEILA+probe Ql (Stl) Positive Abnormal Negative for C. difficile toxin by PCR [facility] Comment on above: Order Comment: Speci men Type: STOOL SPECIMENOrdering Facility: [facility] Address: [address] [place] [address] Result Comment: A po sitive PCR result [...] submission. Performed By: #### 5 [id number], CDEIA ####[facility] LABCL[facility] [id number] [address] [place] CLOSTRIDIUM DIFFICILE TOXIN BY EIAon 05-22-2024 C. difficile toxin A+B IA Ql (Stl) Not detected Normal Negative for C. difficile toxin [facility] Comment on above: Order Comment: Rl basilio Type: STOOL SPECIMENOrdering Facility: [facility] Address: [address] [place] [address] Result Comment: Toxi n EIA is less sensitive than cell cytotoxin and PCR assays. Clinical correlation of PCR positive/toxin EIA negative results is required to distinguish C. difficle colonization from disease. Performed By: #### 5 [id number], CDEIA ####[facility] LABCLIA [id number] [place] [address] [place] COLONOSCOPYon 05-22-2024 [facility] Gastroenterology Gastrointestinal Endoscopy Patient Name: Orion Harper Procedure Date: 05/22/2024 1:40 PM Date of : 1990 Admit Type: Outpatient Age: 33 Room: [facility] 2 Gender: Female Note Status: Finalized Attending MD: Carol Winn MD, [id number] Procedure: Colonoscopy Indications: Rectal bleeding, Change in [...] verified by the physician, the nurse, the machine builder and the aerospace physiological technician in the procedure room. Mental Status [...] bowel preparation was evaluated using the BBPS (Flint Bowel Preparation Scale) with scores of: Right [...] not included)... [facility], Radiologist, - 05/22/2024 [facility] Gastroenterology Gastrointestinal Endoscopy Patient Name: Orion Harper Procedure Date: 05/22/2024 1:40 PM Date of : 1990 Admit Type: Outpatient Age: 33 Room: [facility] 2 Gender: Female Note Status: Finalized Attending MD: Carol Winn MD, [id number] Procedure: Colonoscopy Indications: Rectal bleeding, Change in [...] verified by the physician, the nurse, the machine builder and the aerospace physiological technician in the procedure room. Mental Status [...] bowel preparation was evaluated using the BBPS (Flint Bowel Preparation Scale) with scores of: Right [...] once a da (more content not included)... [facility] COLONOSCOPYOrdered By: Radio logist Radiology on 05-22-2024 [facility] Lydia Work Phone: Colonoscopyon 05-22-2024 Colonoscopy [facility] Gastroenterology Gastrointestinal Endoscopy Patient Name: Orion Harper Procedure Date: 05/22/2024 1:40 PM Date of : 1990 Admit Type: Outpatient Age: 33 Room: [facility] 2 Gender: Female Note Status: Trimmer Loader Override Attending MD: Carol Winn MD, [id number] Procedure: Colonoscopy Indications: Rectal bleeding, Change in bowel habits, Diarrhea for 2-3 weeks. Had bronchitis prior to that and was given steroids and antibiotics Providers: Carol Winn MD Patient Profile: This is a 33 year old female. Refer to note in patient chart for documentation of history and physical. Last Colonoscopy: May 2019. Referring Physician: Iliana Mercado (Referring MD), Giovani Hagen MD (Referring MD) [...] verified by the physician, the nurse, the machine builder and the aerospace physiological technician in the procedure room. Mental Status [...] bowel preparation was evaluated using the BBPS (Flint Bowel Preparation Scale) with scores of: Right [...] Return to GI office as previously scheduled. (more content not included)... Normal [facility] Flexible sigmoidoscopy study on 05-22-2024 [facility] Gastroenterology Gastrointestinal Endoscopy Patient Name: Orion Harper Procedure Date: 05/22/2024 1:40 PM Date of : 1990 Admit Type: Outpatient Age: 33 Room: [facility] 2 Gender: Female Note Status: Finalized Attending MD: Carol Winn MD, [id number] Procedure: Colonoscopy Indications: Rectal bleeding, Change in [...] verified by the physician, the nurse, the machine builder and the aerospace physiological technician in the procedure room. Mental Status [...] bowel preparation was evaluated using the BBPS (Flint Bowel Preparation Scale) with scores of: Right [...] were ph (more content not included)... [facility] Gastrointestinal pathogens i dentified SHEILA+probe Nom (Stl)on 05-22-2024 Campylobacter sp DNA SHEILA+probe Nom (Unsp spec) Not detected Normal Not Detected [facility] Comment on above: Order Comment: Speci men Type: STOOL SPECIMENOrdering Facility: [facility] Address: [address] [place] [address] Performed By: #### 7 9390-1 ####[facility] [id number] [place] [address] [place] Salmonella sp DNA SHEILA+probe Ql (Unsp spec) Not detected Normal Not Detected [facility] Comment on above: Order Comment: Speci men Type: STOOL SPECIMENOrdering Facility: [facility] Address: [address] [place] [address] Performed By: #### 7 9390-1 ####[facility] [id number] [place] [address] [place] Shiga toxin stx gene SHEILA+probe Nom (Unsp spec) Not detected Normal Not Detected [facility] Comment on above: Order Comment: Speci men Type: STOOL SPECIMENOrdering Facility: [facility] Address: [address] [place] [address] Performed By: #### 7 9390-1 ####[facility] [id number] [address] [place] Shigella sp DNA SHEILA+probe Ql (Unsp spec) Not detected Normal Not Detected [facility] Comment on above: Order Comment: Speci men Type: STOOL SPECIMENOrdering Facility: [facility] Address: [address] [place] [address] Performed By: #### 7 9390-1 ####[facility] [id number] [place] [address] [place] HISTORY PHYSICALon HISTORY PHYSICAL HNO ID: [id number] Author: CAROL WINN MD Service: Gastroenterology Author [...] May 22, 2024 TIME: 1:39 PM Normal [facility] NURSING PROGon 05-22-2024 NURSING PROG HNO ID: [id number] Author: LINDSEY BUCKLEY RN Service: ? Author [...] Buckley RN In Department: AMBULATORY SURGERY Normal [facility] No Panel Informationon 05-22 Radiology Study observation (narrative) [facility] SURGICAL PATHOLOGYon 025 CASE REPORT Normal [facility] Comment on above: Order Comment: Speci men Type: TISSUE SPECIMENOrdering Facility: [facility] Address: [address] [place] [address] Result Comment: Surg ical Pathology Report Case: [id number] Authorizing Provider: Carol Winn MD Collected: 05/22/2024 02:05 PM Ordering Location: Ambulatory Surgery Received: 05/22/2024 08:39 PM Pathologist: Fe Barnes MD Specimens: A) - Colon, Right, Biopsy, r/o microscopic colitis, r/o inflammation B) - Colon, Left, Biopsy, r/o microscopic colitis, r/o inflammation Performed By: #### S ####[facility] [id number] [address] FINAL DIAGNOSIS Normal [facility] Comment on above: Order Comment: Speci men Type: TISSUE SPECIMENOrdering Facility: [facility] Address: [address] [place] [address] Result Comment: Eleuterio. Quiana sandovalon, right, biopsy: - Colonic mucosa with no significant pathologic change. B. Colon, left, biopsy: - Colonic mucosa with no significant pathologic change. Performed By: #### S ####[facility] [id number] [address] STATES [facility] FINAL PERFORMING LAB Normal [facility] Comment on above: Order Comment: Speci men Type: TISSUE SPECIMENOrdering Facility: [facility] Address: [address] [place] [address] Result Comment: Diag nostic interpretation performed at: [facility], [address] [place] [address] CLIA# [id number] Stone Derrickman And Rigger: Alhaji Galvez MD Performed By: #### S ####[facility] [id number] [address] [place] GROSS DESCRIPTION Normal [facility] Comment on above: Order Comment: Speci men Type: TISSUE SPECIMENOrdering Facility: [facility] Address: [address] [place] [address] Result Comment: Eleuterio. Quiana corbett, Right, Biopsy Received in formalin are multiple pieces of boss, soft tissue aggregating to 1.4 x 0.5 x 0.1 cm. Totally submitted in two cassettes. B. Colon, Left, Biopsy Received in formalin are two pieces of boss, soft tissue aggregating to 0.4 x 0.2 x 0.1 cm. Totally submitted in one cassette. DB May 22, 2024 10:34 PM Gross examination performed at [facility], [address] [place] [address] Performed By: #### S ####[facility] [id number] [id number] XR Ankle - right 3 Viewson 0 05-15-2024 Imaging Result: XRAY: Three views were taken today AP/MORT/LAT Ankle: No fractures or dislocations seen no spurring noted at the lateral ankle ligament complex noted as reported on the MRI [facility] Radiology Study observation (narrative) [facility] ALL CBC WITH AUTO DIFFon BASOPHILS ABSOLUTE AUTO 0 [facility] Basophils/100 WBC (Bld) 0.4 % 0.2 - 2.0 % [facility] Eosinophils/100 WBC (Bld) 2.2 % 0.9 - 7.0 % [facility] Erythrocyte distribution width (RBC) [Ratio] 12.9 % 11.0 - 15.0 % [facility] Hematocrit (Bld) [Volume fraction] 41.2 % 36.0 - 48.0 % [facility] Hemoglobin (Bld) [Mass/Vol] 13.8 g/dL 12.0 - 16.0 g/dL [facility] IMMATURE GRANULOCYTES ABS AUTO 0.19 High [facility] Immature granulocytes/100 WBC (Bld) 1.9 % High 0.0 - 0.5 % [facility] Interpretation and review of laboratory results Abnormal [facility] LYMPHOCYTES ABSOLUTE AUTO 3 [facility] Lymphocytes/100 WBC (Bld) 30.1 % 20.5 - 60.0 % [facility] MCH (RBC) [Entitic mass] 32.7 pg 26.7 - 34.0 pg [facility] MCHC (RBC) [Mass/Vol] 33.5 g/dL 29.9 - 35.2 g/dL [facility] MCV (RBC) [Entitic vol] 97.6 fL 81.0 - 99.0 fL [facility] MONOCYTES ABSOLUTE AUTO 0.7 [facility] Monocytes/100 WBC (Bld) 6.6 % 1.7 - 12.0 % [facility] NEUTROPHILS ABSOLUTE AUTO 5.8 [facility] Neutrophils/100 WBC (Bld) 58.8 % 43.0 - 75.0 % [facility] Platelet mean volume (Bld) [Entitic vol] 10.8 fL 9.5 - 13.5 fL [facility] TBH EO # 0.2 [facility] PLT 206 [facility] RBC 4.22 [facility] WBC 9.9 [facility] CLINISYNC [facility] CNPNon 05-06-2024 CNPN Telephone (CARDMN) ORION HARPER ([id number]) 1990 F Date Time Provider Department 05/06/24 SOLO MORA During your visit today, we recorded the following information about you: Criss Mccrary 05/06/2024 1:41 PM Signed Echo was faxed to Anne-Marie @ [phone] AND scanned into outside ep. Patient is [...] Status:Closed by CRISS MCCRARY on 05/06/24 Normal [facility] Liver ultrasound attenuation by transient elastographyon [...] and referral to hepatology. Zehra Gray PA-C [facility] Fibroscan Fibrosis Risk <7 kPA [...] 3 (>/= S3: > 66% steatosis) Reference Glynn Y, Inocente Q, Glynn T, Gifty J, Glynn H, Carpio T. Controlled attenuation parameter for assessment of hepatic steatosis grades: a diagnostic meta-analysis. Int J Clin Exp Med. 2015 Feb 05;8(10):90948-92. PMID: 92559987; PMCID: [id number]. Ruthann Bob, Juan FANTASMA, Rico M, Cosmo F, Tawnya J, Everardo O, Leyla F, Franci M, Alejandro G, Dorie A, Gianna E, Leyla L, French G, Kasmhir A, Vicente U, Jodi S, Franc P, Max V, de Kole V, Leena M, Neo EA. Refining the Baveno elastography criteria for the definition of compensated advanced chronic liver disease. J Hepatol. 2020;74(5):0705-6392. doi: 10.1016/j.jhep.2020.1 1.050. Epub 2019Apr 01. PMID: [id number]. Izabel Bob, Chastity B, Martha Bob, Xiao Bob, Joon S, Nuria Roth, Trevin D, Trixie Kendrick. AASLD practice guidance on the clinical assessment and management of nonalcoholic fatty liver disease. Hepatology. 2022;77(5):7445-9567. doi:10.1097/HEP.38952 [id number] [facility] Radiology Study observation (narrative) [facility] Radiology Study observation (narrative) [facility] A1AT SerPl-mCncon 04-26-2024 Alpha 1 antitrypsin [Mass/Vol] 123 mg/dL Normal 90-200 [facility] Comment on above: Order Comment: Speci men Type: BLOOD SPECIMEN [facility] Address: [address] [place] [address] Performed By: #### 2 064-4, 1825-9 #### [facility] CLIA [id number] [address] [place] [address] [place] AFP SerPl-mCncon 04-26-2024 AFP [Mass/Vol] 3.01 ng/mL Normal <9.00 Lisa parry Comment on above: Order Comment: Rl basilio Type: BLOOD SPECIMEN [facility] Address: [address] [place] [address] Result Comment: The Alpha-Fetoprotein test was performed using the [employer] DxI immunoenzymatic assay. Results obtained with different assay methods or kits cannot be used interchangeably. Performed By: #### 1 834-1 #### [facility] CLIA [id number] [address] [place] [address] [place] DENY BY IFA WITH REFLEXon Nuclear Ab Ql (S) Negative Normal Negative Lisa zepeda Comment on above: Order Comment: Rl basilio Type: BLOOD SPECIMEN [facility] Address: [address] [place] [address] Result Comment: Anti -nuclear antibody test is used as an aid in diagnosis of systemic autoimmune diseases. Where positive and clinically warranted, follow-up using disease-specific testing is recommended. Low positive titers are not uncommon with advanced age, certain chronic infections, and malignancies among others. Test methodology: Indirect fluorescence immunoassay (IFA) using HEp-2 cells. Performed By: #### A NAIFR #### [facility] CLIA [id number] [address] [place] [address] [place] CBC W Auto Differential pane l (Bld)on 04-26-2024 Basophils (Bld) [#/Vol] 0.06 10*3/uL [facility] Differential cell count method Nom (Bld) Auto [facility] Eosinophils (Bld) [#/Vol] [facility] Immature granulocytes (Bld) [#/Vol] 0.33 10*3/uL High [facility] Immature granulocytes/100 WBC (Bld) 2.7 % [facility] Lymphocytes (Bld) [#/Vol] 2.80 10*3/uL [facility] MCH (RBC) [Entitic mass] 32.0 pg 26.0 - 34.[address] [facility] Monocytes (Bld) [#/Vol] 0.41 10*3/uL NINF [facility] Neutrophils (Bld) [#/Vol] 8.78 10*3/uL High [facility] Nucleated RBC (Bld) [#/Vol] [facility] Nucleated RBC/100 WBC (Bld) [Ratio] 0.0 % /[address] [facility] Platelet mean volume (Bld) [Entitic vol] 10.8 fL 9.0 - 12.[address] [facility] Platelets (Bld) [#/Vol] 271 10*3/uL [facility] WBC (Bld) [#/Vol] 12.39 10*3/uL High [facility] Basophils (Bld) [#/Vol] 0.06 10*3/uL Normal <0.11 [facility] Comment on above: Order Comment: Speci men Type: BLOOD SPECIMEN [facility] Address: [address] [place] [address] Performed By: #### 5 0190-8, 2275-07, #### [facility] CLIA [id number] [address] [place] [address] [place] Basophils/100 WBC (Bld) 0.5 % Normal [facility] Comment on above: Order Comment: Speci men Type: BLOOD SPECIMEN [facility] Address: [address] [place] [address] Performed By: #### 5 0190-8, 2275-07, #### [facility] CLIA [id number] [address] [place] [address] [place] Differential cell count method Nom (Bld) Auto Normal [facility] ital Comment on above: Order Comment: Speci men Type: BLOOD SPECIMEN [facility] Address: [address] [place] [address] Performed By: #### 5 0190-8, 4, #### [facility] CLIA [id number] [address] [place] [address] [place] Eosinophils (Bld) [#/Vol] 10*3/uL Normal <0.46 [facility] Comment on above: Order Comment: Speci men Type: BLOOD SPECIMEN [facility] Address: [address] [place] [address] Performed By: #### 5 0190-8, 2275-07, #### [facility] CLIA [id number] [address] [place], [place] [address] [place] [address] [place] Eosinophils/100 WBC (Bld) 0.1 % Normal [facility] Comment on above: Order Comment: Speci men Type: BLOOD SPECIMEN [facility] Address: [address] [place] [address] Performed By: #### 5 0190-8, 2275-07, #### [facility] CLIA [id number] [address] [place] [address] [place] Erythrocyte distribution width (RBC) [Ratio] 12.5 % Normal 11.5-15.0 [facility] Comment on above: Order Comment: Speci men Type: BLOOD SPECIMEN [facility] Address: [address] [place] [address] Performed By: #### 5 0190-8, 2275-07, #### [facility] CLIA [id number] [address] [place] [address] [place] Hematocrit (Bld) [Volume fraction] 46.1 % High 36.0-46.0 [facility] Comment on above: Order Comment: Speci men Type: BLOOD SPECIMEN [facility] Address: [address] [place] [address] Performed By: #### 5 0190-8, 2275-07, #### [facility] CLIA [id number] [address] [place] [address] [place] Hemoglobin (Bld) [Mass/Vol] 15.5 g/dL Normal 11.5-15.5 [facility] Comment on above: Order Comment: Speci men Type: BLOOD SPECIMEN [facility] Address: [address] [place] [address] Performed By: #### 5 0190-8, 2275-4, #### [facility] CLIA [id number] [address] [place] [address] [place] Immature granulocytes (Bld) [#/Vol] 0.33 10*3/uL High <0.10 [facility] Comment on above: Order Comment: Speci men Type: BLOOD SPECIMEN [facility] Address: [address] [place] [address] Performed By: #### 5 0190-8, 2275-07, 74772-0 #### [facility] CLIA [id number] [address] [place] [address] [place] Immature granulocytes/100 WBC (Bld) 2.7 % Normal [facility] Comment on above: Order Comment: Speci men Type: BLOOD SPECIMEN [facility] Address: [address] [place] [address] Performed By: #### 5 0190-8, 2275-07, #### [facility] CLIA [id number] [address] [place] [address] [place] Lymphocytes (Bld) [#/Vol] 2.80 10*3/uL Normal 1.00-4.00 [facility] Comment on above: Order Comment: Speci men Type: BLOOD SPECIMEN [facility] Address: [address] [place] [address] Performed By: #### 5 0190-8, 2275-07, 02331-6 #### [facility] CLIA [id number] [address] [place] [address] [place] Lymphocytes/100 WBC (Bld) 22.6 % Normal [facility] Comment on above: Order Comment: Speci men Type: BLOOD SPECIMEN [facility] Address: [address] [place] [address] Performed By: #### 5 0190-8, 2275-07, #### [facility] CLIA [id number] [address] [place] [address] [place] MCH (RBC) [Entitic mass] 32.0 pg Normal 26.0-34.0 [facility] Comment on above: Order Comment: Speci men Type: BLOOD SPECIMEN [facility] Address: [address] [place] [address] Performed By: #### 5 0190-8, 2275-07, #### [facility] CLIA [id number] [address] [place] [id number] [place] [address] [place] MCHC (RBC) [Mass/Vol] 33.6 g/dL Normal 30.5-36.0 [facility] Comment on above: Order Comment: Speci men Type: BLOOD SPECIMEN [facility] Address: [address] [place], [place] [address] Performed By: #### 5 0190-8, 2275-07, #### [facility] CLIA [id number] [address] [place] [id number] [place] [address] [place] MCV (RBC) [Entitic vol] 95.1 fL Normal 80.0-100.0 [facility] Comment on above: Order Comment: Speci men Type: BLOOD SPECIMEN [facility] Address: [address] [place] [address] Performed By: #### 5 0190-8, 2275-07, #### [facility] CLIA [id number] [address] [place] [address] [place] Monocytes (Bld) [#/Vol] 0.41 10*3/uL Normal <0.87 [facility] Comment on above: Order Comment: Speci men Type: BLOOD SPECIMEN [facility] Address: [address] [place] [address] Performed By: #### 5 0190-8, 2275-4, #### [facility] CLIA [id number] [address] [place] [address] [place] Monocytes/100 WBC (Bld) 3.3 % Normal [facility] Comment on above: Order Comment: Speci men Type: BLOOD SPECIMEN [facility] Address: [address] [place] [address] Performed By: #### 5 0190-8, 2275-07, #### [facility] CLIA [id number] [address] [place] [address] [place] Neutrophils (Bld) [#/Vol] 8.78 10*3/uL High 1.45-7.50 [facility] Comment on above: Order Comment: Speci men Type: BLOOD SPECIMEN [facility] Address: [facility] [place] [address] Performed By: #### 5 0190-8, 2275-07, #### [facility] CLIA [id number] [address] [place] [address] [place] Neutrophils/100 WBC (Bld) 70.8 % Normal [facility] Comment on above: Order Comment: Speci men Type: BLOOD SPECIMEN [facility] Address: [address] [place] [address] Performed By: #### 5 0190-8, 2275-07, #### [facility] CLIA [id number] [address] [place] [address] [place] Nucleated RBC (Bld) [#/Vol] 10*3/uL Normal <0.01 [facility] Comment on above: Order Comment: Speci men Type: BLOOD SPECIMEN [facility] Address: [address] [place] [address] Performed By: #### 5 0190-8, 4, 57146-3 #### [facility] CLIA [id number] [address] [place] [address] [place] Nucleated RBC/100 WBC (Bld) [Ratio] 0.0 /100 WBC Normal [facility] Comment on above: Order Comment: Speci men Type: BLOOD SPECIMEN [facility] Address: [address] [place] [address] Performed By: #### 5 0190-8, 6-4, 93549-9 #### [facility] CLIA [id number] [address] [place] [address] [place] Platelet mean volume (Bld) [Entitic vol] 10.8 fL Normal 9.0-12.7 [facility] Comment on above: Order Comment: Speci men Type: BLOOD SPECIMEN [facility] Address: [address] [place] [address] Performed By: #### 5 0190-8, 2275-4, 58642-9 #### [facility] CLIA [id number] [address] [place] [address] [place] Platelets (Bld) [#/Vol] 271 10*3/uL Normal 150-400 [facility] Comment on above: Order Comment: Speci men Type: BLOOD SPECIMEN [facility] Address: [address] [place] [address] Performed By: #### 5 0190-8, 2275-4, 11879-4 #### [facility] CLIA [id number] [address] [place] [address] [place] RBC (Bld) [#/Vol] 4.85 10*6/uL Normal 3.90-5.20 [facility] Comment on above: Order Comment: Speci men Type: BLOOD SPECIMEN [facility] Address: [address] [place] [address] Performed By: #### 5 0190-8, 2275-4, 32667-5 #### [facility] CLIA [id number] [address] [place] [address] [place] WBC (Bld) [#/Vol] 12.39 10*3/uL High 3.70-11.00 [facility] Comment on above: Order Comment: Speci men Type: BLOOD SPECIMEN [facility] Address: [facility] [place] [address] Performed By: #### 5 0190-8, 2276-4, 67068-7 #### [facility] CLIA [id number] [address] [facility]. [address] [place] [facility] CBC W AUTO DIFF BLDon [facility] BASOPHILS # BLD AUTO 0.06 [facility] DIFFERENTIAL METHOD BLD Auto [facility] EOSINOPHIL # BLD AUTO <0.03 [facility] LYMPHOCYTES # BLD AUTO 2.8 [facility] MONOCYTES # BLD AUTO 0.41 [facility] NEUTROPHILS # BLD AUTO 8.78 High [facility] NRBC # BLD AUTO <0.01 [facility] NRBC/100 WBC BLD-RTO 0 /100 WBC [facility] PLATELET # BLD AUTO 271 [facility] PMV BLD AUTO 10.8 fL 9.0 - 12.7 fL [facility] WBC # BLD AUTO 12.39 High [facility] IMM GRANULOCYTES # BLD AUTO 0.33 High [facility] IMM GRANULOCYTES/LEUK NFR BLD AUTO 2.7 % [facility] MCH (RBC) [Entitic mass] 32 pg 26.0 - 34.0 pg [facility] Specimen Type: BLOOD SPECIMEN Ordering Facility: [facility] Address: [address] [place] [address] Original Ordering Provider: ILIANA Alexandra 04-26-2024 CNOV Office Visit (GASTNO ) ORION HARPER ([id number]) 1990 F Date Time Provider Department 04/26/24 [...] do not hesitate to send me a [employer] message or call. FARNAZ Mohr Lauren, PA-C [...] she saw Dr. Hylton in [address] [facility]. 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 Colonosc (more content not included)... Normal [facility] Office Visit (ORMDNA ) ORION HARPER ([id number]) 1990 F Date Time Provider Department 04/26/24 [...] and plan (more content not included)... Normal [facility] Ceruloplasmin SerPl-mCncon 0 04-26-2024 Ceruloplasmin [Mass/Vol] 27 mg/dL Normal 16-45 [facility] Comment on above: Order Comment: Speci men Type: BLOOD SPECIMEN Ordering Facility: [facility] Address: [address] [place] [address] Performed By: #### 2 064-4, 1825-9 #### [facility] CLIA [id number] [address] [place] [address] [place] Comprehensive metabolic 2000 panelon 04-26-2024 Albumin [Mass/Vol] 4.7 g/dL 3.9 - 4.9 g/dL [facility] ALP [Catalytic activity/Vol] 144 U/L High 34 - 123 U/L [facility] ALT [Catalytic activity/Vol] 192 U/L High 7 - 38 U/L [facility] Anion gap [Moles/Vol] 13 mmol/L 8 - 15 mmol/L [facility] AST [Catalytic activity/Vol] 99 U/L High 13 - 35 U/L [facility] Bilirubin [Mass/Vol] 0.3 mg/dL 0.2 - 1 .3 mg/dL [facility] Calcium [Mass/Vol] 9.2 mg/dL 8.5 - 10. 2 mg/dL [facility] Chloride [Moles/Vol] 100 mmol/L 98 - 10 7 mmol/L [facility] CO2 [Moles/Vol] 25 mmol/L 22 - 30 mmol/L [facility] Creatinine [Mass/Vol] 0.58 mg/dL 0.58 - 0.96 mg/dL [facility] GFR/1.73 sq M.predicted among non-blacks MDRD (S/P/Bld) [Vol rate/Area] 121 mL/min/{1.73_m2} - PINF [facility] Comment on above: Estimated Glomerular Filtration [...] [Mass/Vol] 95 mg/dL 74 - 99 mg/dL [facility] Comment on above: The [place] Diabete s Association (ADA) provides guidance for [...] Standards of Medical Care in Diabetes 2016, [place] Diabetes Association. Diabetes Care. 2016.39(Suppl 1). Interpretation and review of laboratory results Abnormal [facility] Potassium [Moles/Vol] 4.0 mmol/L 3.7 - 5.1 mmol/L [facility] Protein [Mass/Vol] 8.0 g/dL 6.3 - 8.0 g/dL [facility] Sodium [Moles/Vol] 138 mmol/L 136 - 144 mmol/L [facility] Urea nitrogen [Mass/Vol] 12 mg/dL 7 - 21 mg/dL [facility] Albumin [Mass/Vol] 4.7 g/dL Normal 3.9-4.9 [facility] Comment on above: Order Comment: Speci men Type: BLOOD SPECIMEN Ordering Facility: [facility] Address: [address] [place] [address] Performed By: #### 5 0190-8, 2275-4, 70206-2 #### [facility] CLIA [id number] [address] [place] [address] [place] ALP [Catalytic activity/Vol] 144 U/L High 34-123 [facility] Comment on above: Order Comment: Speci men Type: BLOOD SPECIMEN Ordering Facility: [facility] Address: [address] [place] [address] Performed By: #### 5 0190-8, 2275-4, 47590-3 #### [facility] CLIA [id number] [address] [place] [address] [place] ALT [Catalytic activity/Vol] 192 U/L High 7-38 [facility] Comment on above: Order Comment: Speci men Type: BLOOD SPECIMEN Ordering Facility: [facility] Address: [address] [place] [address] Performed By: #### 5 0190-8, 2275-4, 70090-4 #### [facility] CLIA [id number] [address] [place] [address] [place] Anion gap [Moles/Vol] 13 mmol/L Normal 8-15 [facility] Comment on above: Order Comment: Speci men Type: BLOOD SPECIMEN Ordering Facility: [facility] Address: [address] [place] [address] Performed By: #### 5 0190-8, 2275-4, 99179-9 #### [facility] CLIA [id number] [address] [place] [address] [place] AST [Catalytic activity/Vol] 99 U/L High 13-35 [facility] Comment on above: Order Comment: Speci men Type: BLOOD SPECIMEN Ordering Facility: [facility] Address: [address] [place] [address] Performed By: #### 5 0190-8, 6-4, 87192-7 #### [facility] CLIA [id number] [address] [place] [address] [place] Bilirubin [Mass/Vol] 0.3 mg/dL Normal 0.2-1.3 [facility] Comment on above: Order Comment: Speci men Type: BLOOD SPECIMEN Ordering Facility: [facility] Address: [address] [place] [address] Performed By: #### 5 0190-8, 2275-4, 37618-1 #### [facility] CLIA [id number] [address] [place] [address] [place] Calcium [Mass/Vol] 9.2 mg/dL Normal 8.5-10.2 [facility] Comment on above: Order Comment: Speci men Type: BLOOD SPECIMEN Ordering Facility: [facility] Address: [address] [place] [address] Performed By: #### 5 0190-8, 4, #### [facility] CLIA [id number] [address] [place] [address] [place] Chloride [Moles/Vol] 100 mmol/L Normal 98-107 [facility] Comment on above: Order Comment: Speci men Type: BLOOD SPECIMEN Ordering Facility: [facility] Address: [address] [place] [address] Performed By: #### 5 0190-8, 2275-07, #### [facility] CLIA [id number] [address] [place] [address] [place] CO2 [Moles/Vol] 25 mmol/L Normal 22-30 [facility] Comment on above: Order Comment: Speci men Type: BLOOD SPECIMEN Ordering Facility: [facility] Address: [address] [place] [address] Performed By: #### 5 0190-8, 2275-07, #### [facility] CLIA [id number] [address] [facility] [place] [address] [place] Creatinine [Mass/Vol] 0.58 mg/dL Normal 0.58-0.96 [facility] Comment on above: Order Comment: Dionicioi men Type: BLOOD SPECIMEN Ordering Facility: [facility] Address: [address] [place], [place] [address] Performed By: #### 5 0190-8, 2275-07, #### [facility] CLIA [id number] [address] [facility] [place] [address] [place] Creatinine and Glomerular filtration rate.predicted panel (S/P/Bld) 121 mL/min/1.73m??? Normal >=60 [facility] Comment on above: Order Comment: Rl men Type: BLOOD SPECIMEN Ordering Facility: [facility] Address: [address] [place] [address] Result Comment: Chely mated Glomerular Filtration Rate [...] actual GFR. Performed By: #### 5 0190-8, 2275-07, #### [facility] CLIA [id number] [address] [facility] [place] [address] [place] Glucose [Mass/Vol] 95 mg/dL Normal 74-99 [facility] Comment on above: Order Comment: Rl basilio Type: BLOOD SPECIMEN Ordering Facility: [facility] Address: [address] [place], [place] [address] Result Comment: The [place] Diabetes Association (ADA) provides guidance for cutoff [...] Standards of Medical Care in Diabetes 2016, [place] Diabetes Association. Diabetes Care. 2016.39(Suppl 1). Performed By: #### 5 0190-8, 2275-4, 87650-8 #### [facility] CLIA [id number] [address] [place] [address] [place] Potassium [Moles/Vol] 4.0 mmol/L Normal 3.7-5.1 [facility] Comment on above: Order Comment: Rl [facility] Type: BLOOD SPECIMEN Ordering Facility: [facility] Address: [address] [place] [address] Performed By: #### 5 0190-8, 4, #### [facility] CLIA [id number] [address] [place] [address] [place] Protein [Mass/Vol] 8.0 g/dL Normal 6.3-8.0 [facility] Comment on above: Order Comment: Rl basilio Type: BLOOD SPECIMEN Ordering Facility: [facility] Address: [address] [id number] Performed By: #### 5 0190-8, 2275-07, 05637-6 #### [facility] CLIA [id number] [address] [place] [address] [place] Sodium [Moles/Vol] 138 mmol/L Normal 136-144 [facility] Comment on above: Order Comment: Rl basilio Type: BLOOD SPECIMEN Ordering Facility: [facility] Address: [address] [id number] Performed By: #### 5 0190-8, 2275-07, 42613-1 #### [facility] CLIA [id number] [address] [place] [address] [place] Urea nitrogen [Mass/Vol] 12 mg/dL Normal 7-21 [facility] Comment on above: Order Comment: Speci men Type: BLOOD SPECIMEN Ordering Facility: [facility] Address: [address] [place] [address] Performed By: #### 5 0190-8, 6-4, 06789-8 #### [facility] CLIA [id number] [address] [place] [address] [place] FERRITINon 04-26-2024 Ferritin [Mass/Vol] 420.9 ng/mL High 14.7 - 2 05.1 ng/mL [facility] Ferritin SerPl-mCncon 2024 Ferritin [Mass/Vol] 420.9 ng/mL High 14.7-205.1 [facility] Comment on above: Order Comment: Speci men Type: BLOOD SPECIMEN Ordering Facility: [facility] Address: [address] [place] [address] Performed By: #### 5 0190-8, 4, #### [facility] CLIA [id number] [address] [place], [place] [address] [place] Ferritin [Mass/Vol]on 2024 Interpretation and review of laboratory results Abnormal [facility] HAV IgM Ser Qlon 04-26-2024 HAV IgM Ql (S) Negative Normal Negative [facility] Comment on above: Order Comment: Dionicioi [facility] Type: BLOOD SPECIMEN Ordering Facility: [facility] Address: [address] [place] [address] Result Comment: No e vidence of recent infection with Hepatitis A virus. Performed By: #### 5 0190-8, 6-4, 66834-4 #### [facility] CLIA [id number] [address] [facility] [place] [address] [place] HBV core IgM Ser Qlon 2024 HBV core IgM Ql (S) Negative Normal Negative [facility] Comment on above: Order Comment: Speci men Type: BLOOD SPECIMEN Ordering Facility: [facility] Address: [address] [place] [address] Result Comment: No e vidence of recent infection with Hepatitis B virus. Should recent infection be suspected, repeat testing may be considered 3-4 weeks after this draw. Performed By: #### 5 195-3, 85708-8, 11688-8 #### [facility] CLIA [id number] [address] [place] [address] [place] HBV surface Ag Ser Qlon -0 HBV surface Ag Ql (S) Negative Normal Negative [facility] Comment on above: Order Comment: Rl [facility] Type: BLOOD SPECIMEN Ordering Facility: [facility] Address: [address] [place] [address] Performed By: #### 5 0190-8, 2276-4, 27885-9 #### [facility] CLIA [id number] [address] [facility] [place], [place] [address] [place] [address] [place] HCV Ab Ser Qlon 04-26-2024 HCV Ab Ql (S) Negative Normal Negative [facility] Comment on above: Order Comment: Rl [facility] Type: BLOOD SPECIMEN Ordering Facility: [facility] Address: [address] [place] [address] Result Comment: The result suggests no evidence of active infection with Hepatitis C virus. Should recent infection be suspected, repeat testing may be considered 4-6 weeks after this draw. Performed By: #### 1 6128-1 #### [facility] CLIA [id number] [address] [place] [address] [place] Iron and Iron binding capaci ty panelon 04-26-2024 Interpretation and review of laboratory results Normal [facility] Iron [Mass/Vol] 105 ug/dL 41 - 186 ug/dL [facility] Iron binding capacity [Mass/Vol] 340 ug/dL 232 - 386 ug/dL [facility] Iron/TIBC [Molar ratio] 30.9 % 15.0 - 57.0 % [facility] Iron [Mass/Vol] 105 ug/dL Normal 41-186 [facility] Comment on above: Order Comment: Rl [facility] Type: BLOOD SPECIMEN Ordering Facility: [facility] Address: [address] [place], [place] [address] Performed By: #### 5 0190-8, 6-4, 78596-6 #### [facility] CLIA [id number] [address] [place], [place] [address] [place] [address] Iron binding capacity [Mass/Vol] 340 ug/dL Normal 232-386 [facility] Comment on above: Order Comment: Speci men Type: BLOOD SPECIMEN Ordering Facility: [facility] Address: [address] [place], [place] [address] Performed By: #### 5 0190-8, 2275-4, 34127-0 #### [facility] CLIA [id number] [address] [place], [place] [address] [place] [address] OF [facility] Iron/TIBC [Molar ratio] 30.9 % Normal 15.0-57.0 [facility] Comment on above: Order Comment: Speci men Type: BLOOD SPECIMEN Ordering Facility: [facility] Address: [address] [place], [place] [address] Performed By: #### 5 0190-8, 2275-4, 78370-1 #### [facility] CLIA [id number] [address] [place] [address] [facility] Laboratory - Hematology and Cell countson 04-26-2024 Basophils/100 WBC (Bld) 0.5 % [facility] Eosinophils/100 WBC (Bld) 0.1 % [facility] Erythrocyte distribution width (RBC) [Ratio] 12.5 % 11.5 - 15.0 % [facility] Hematocrit (Bld) [Volume fraction] 46.1 % High 36.0 - 46.0 % [facility] Hemoglobin (Bld) [Mass/Vol] 15.5 g/dL 11.5 - 15.5 g/dL [facility] Lymphocytes/100 WBC (Bld) 22.6 % [facility] MCHC (RBC) [Mass/Vol] 33.6 g/dL 30.5 - 36.0 g/dL [facility] MCV (RBC) [Entitic vol] 95.1 fL 80.0 - 100.0 fL [facility] Monocytes/100 WBC (Bld) 3.3 % [facility] Neutrophils/100 WBC (Bld) 70.8 % [facility] RBC (Bld) [#/Vol] 4.85 10*6/uL 3.90 - 5.2 0 m/uL [facility] Mitochondria Ab IF Ql (S)on 04-26-2024 Mitochondria M2 Ab IA Qn (S) 2.8 Units Normal <=20.0 [facility] Comment on above: Order Comment: Speci men Type: BLOOD SPECIMEN Ordering Facility: [facility] Address: [address] [place] [address] Performed By: #### 5 0190-8, 2276-4, 11887-6 #### [facility] CLIA [id number] [address] [place] [address]. [address] Mitochondria M2 Ab Ql (S) Negative Normal Negative [facility] Comment on above: Order Comment: Speci men Type: BLOOD SPECIMEN Ordering Facility: [facility] Address: [address] [place] [address] Result Comment: Anti -mitochondrial antibody test is used as an aid in diagnosis of primary biliary cholangitis. Clinical correlation is required. Performed By: #### 5 0190-8, 2276-4, 78939-0 #### [facility] CLIA [id number] [address] [place] [address]. [address] No Panel Informationon 04-[address] [facility] Interpretation and review of laboratory results Abnormal [facility] PT panel Coag (PPP)on 2024 INR Coag (PPP) [Relative time] 0.9 {INR} 0.9 - 1.[address] [facility] Comment on above: Vitamin K Antagonist (VKA) Therapeutic Range: INR 2 to 3 (Target INR of 2.5) Note: For patients treated with VKA drugs, such as warfarin, the [place] [employer] 2012 Guideline recommends [...] óscar. Chest 2012, 141:7S-47S Lit SALVADOR et óscar. [facility] 2017, 70: 252-289 Interpretation and review of laboratory results Normal [facility] PT Coag (PPP) [Time] 10.6 s [facility] INR Coag (PPP) [Relative time] 0.9 {INR} Normal 0.9-1.3 [facility] Comment on above: Order Comment: Rl basilio Type: BLOOD SPECIMEN Ordering Facility: [facility] Address: [address] [place] [address] Result Comment: Maya min K Antagonist (VKA) Therapeutic Range: INR 2 to 3 (Target INR of 2.5) Note: For patients treated with VKA drugs, such as warfarin, the [place] [employer] 2012 Guideline recommends [...] Chest 2012, 141:7S-47S Lit SALVADOR et al. [facility] 2017, 70: 252-289 Performed By: #### 3 4528-0 #### [facility] CLIA [id number] [address] [facility] [place] [address] [facility] PT Coag (PPP) [Time] 10.6 s Normal 9.7-13.0 [facility] Comment on above: Order Comment: Rl basilio Type: BLOOD SPECIMEN Ordering Facility: [facility] Address: [address] [place] [address] Performed By: #### 3 4528-0 #### [facility] CLIA [id number] [address] [place] [address] [facility] Smooth muscle Ab Ql (S)on ACTIN SMOOTH MUSCLE IGG QUALITATIVE Negative Normal Negative [facility] Comment on above: Order Comment: Speci men Type: BLOOD SPECIMEN Ordering Facility: [facility] Address: [address] [place] [address] Performed By: #### 5 0190-8, 2276-4, 44295-7 #### [facility] CLIA [id number] [address] [place] [address] [facility] ACTIN SMOOTH MUSCLE IGG QUANTITATIVE 5 Units Normal <20 [facility] Comment on above: Order Comment: Speci men Type: BLOOD SPECIMEN Ordering Facility: [facility] Address: [address] [place] [address] Performed By: #### 5 0190-8, 2276-4, 60412-1 #### [facility] CLIA [id number] [address] [place] [address] [facility] ECHOon 04-09-2024 Echocardiography Echocardiography Report: Transthoracic Echo [facility] Date of service: 04/09/2024 3:28:57 PM Ordering physician: SOLO MORA Indication: Syncope Technologist: Josephine West [facility] Interpreting physician: Sheri Ac MD PATIENT: Name: [...] * * Final * * * CC [facility] : [id number] [facility] [place] CNPN Telephone (CARDMN) ORION HARPER ([id number]) 1990 F Date Time Provider Department 04/05/24 SOLO MORA During your visit today, we recorded the following information about you: Criss Mccrary 04/05/2024 1:02 PM Signed Outside ep I have a copy @ my desk Criss Velez 04/09/2024 11:49 AM Signed April 09, 2024 Patient Contact Number: [phone] Patient last seen within the last year: Yes 12/15 Reason For Call: Test Results Zio- 12/2023 Physician: Dr. Mora Patient was informed that non-urgent calls may be returned within the next three business days. Yes Joy Dahl RN 04/09/2024 2:14 PM Signed Cardiac clearance and office noted faxed to [facility]. In regards to Zio monitor. Dr Mora [...] Medical Records [[id number]] Cmt: Cardio Clearance [facility] Results [95] Cmt: Zio Prescriptions as of [...] Status:Closed by CRISS MCCRARY on 04/05/24 Normal [facility] HEMOGLOBIN A1con 04-04-2024 HEMOGLOBIN A1c 5.5 [...] diagnosis of diabetes in children. According to [place] Diabetes Association (ADA) guidelines, hemoglobin A1c <7.0% represents optimal control in non- diabetic patients. Different metrics may apply to specific patient populations. Standards of Medical Care in Diabetes(ADA). Performed By: #### 4 96, 733 #### [facility] [address], [address] [place] [address] Decision Unit Rn: Tim Dotson MD POTASSIUMon 04-04-2024 Potassium [Moles/Vol] 3.7 mmol/L Normal 3.5-5.[address] [facility] Comment on above: Order Comment: FASTI NG:YES FASTING: YES Performed By: #### 4 96, 733 #### [facility] [address], [address] [place] [address] Decision Unit Rn: Tim Stark 04-02-2024 CNPN Telephone (CARDMN) ORION HARPER ([id number]) 1990 F Date Time Provider Department 04/02/24 SOLO MORA During your visit today, we recorded the following information about you: Criss Mccrary 04/02/2024 3:53 PM Signed This 'Ankle Surgery Clearance' was faxed over to Dr. Giovani Hagen (PCP) @ [phone] for signing. I spoke with the patient. [...] Reason for Visit: Received Outside Medical Records [[id number]] Cmt: [facility] Prescriptions as of 04/02/2024 - amphetamine-dextroamp hetamine [...] Status:Closed by CRISS MCCRARY on 04/02/24 Normal [facility] IGP,APTIMA HPV,AGE GDLNon AGE GDLN ACOG TESTING Note . [facility] Comment on above: TESTS RESULT FLAG UN ITS REF RANGE LAB Clinician Provided Cytology Information Source.............Vagina No. of containers..01 ThinPrep Vial Age Algo ACOG Starla... 30- 01 FLAG LEGEND: L-Low Normal,H-High Normal,LL-Alert Low,HH-Alert High <-Panic Low,>-Panic High,A-Abnormal,AA-Critical Abnormal Performed at: 01 =[facility] [place] [address] Zoraida Hawkins MD, HPV APTIMA Negative Negative [facility] Comment on above: This nucleic acid am plification test detects fourteen high- risk HPV types (16,18,31,33,35,39,45,51,52,56,58,59,66,68) without differentiation. Performed at: = - [facility] [id number] Blow Torch Burner: Zoraida Hawkins MD, Phone: [phone] Performed at: - [facility] [id number] [employer] Burner: Zoraida Hawkins MD, Phone: [phone] IGP, APTIMA HPV, RFX 16/18,45 Note . [facility] Comment on above: TESTS RESULT FLAG UN ITS REF RANGE LAB DIAGNOSIS: 02 NEGATIVE FOR INTRAEPITHELIAL LESION OR MALIGNANCY. Specimen adequacy: 02 Satisfactory for evaluation. Performed by: 02 Zehra Brush, Solution Analyst (ASCP) . 02 Note: Note 02 The [...] <-Panic Low,>-Panic High,A-Abnormal,AA-Critical Abnormal Performed at: 02 [facility] [address] [place] [address] Zoraida Hawkins MD, SPATULA-ALONE [facility] Ambulatory Visit Summaryon 0 12-28-2023 Ambulatory Visit [...] FRIEDMAN, Madhuri Kendrick Where: [facility] [place] [id number]- Medications What How Much When Instructions Unchanged [...] been having recurrent UTI's. She does [employer] thru [employer] and gets abx without [...] UTI, # 20 cap(s), Refills(s) 2, Pharmacy: [facility]/pharmacy #[id number], 158, cm, 12/28/23 15:24:00 EDT, Height/Length Dosing, 87, kg, 12/28/23 15:24:00 EDT, Weight Dosing E&M of Est. Patient Moderate 30-39 Min 45458 2. Kidney stones (N20.0: Calculus of kidney) [...] UTI, # 20 cap(s), Refills(s) 2, Pharmacy: [facility]/pharmacy #[id number], 158, cm, 12/28/23 15:24:00 EDT, Height/Length Dosing, 87, kg, 12/28/23 15:24:00 EDT, Weight Dosing E&M of Est. Patient Moderate 30-39 Min 89841 Urnls Dip Stick Auto w/o Microscopy POC 09586 3. Smoker (F17.200: Nicotine dependence, unspecified, uncomplicated) cessation encouraged Ordered: cephalexin, See Instructions, 1 cap po after intercourse to prevent UTI, # 20 cap(s), Refills(s) 2, Pharmacy: [facility]/pharmacy #[id number], 158, cm, 12/28/23 15:24:00 EDT, Height/Length Dosing, 87, kg, 12/28/23 15:24:00 EDT, Weight Dosing E&M of Est. Patient Moderate 30-39 Min 97408 Follow-up With When Contact Information OLEG OSEI, JASON GARRISON Within 1 year Additional Instructions: Patient Education Kidney Stones, Fple-ch-Qgsk Problem List/Past Medical History Ongoing Kidney stones [...] Mother. Immunizations Vaccine Date Status Comments SARSCoV2 mRNA(lzwbpamnu-taso-n ucros) vac 11/02/2021 Recorded SARS-CoV-2 (COVID-19) mRNA [...] vaccine, inactiva (more content not included)... Normal [facility] Comment on above: Result Comment: Elec tronically Signed By: OLEG OSEI, BHAVESH Stern.br\Date and Time Signed: 12/28/23 16:01 EDT CNOVon 12-19-2023 CNOV Office Visit (CARDMN ) ORION HARPER ([id number]) 1990 F Date Time Provider Department 12/19/23 2:45 PM SOLO MORA CARDMN During your visit today, we recorded the following information about you: Pulse Blood pressure Weight Height 94/minute 127/91 85.3 kg 1.575 m Solo Mora MD 12/28/2023 2:49 AM Signed [facility] Department of Cardiovascular Medicine SECTION OF CARDIAC PACING and ELECTROPHYSIOLOGY OUTPATIENT VISIT DATE December 19, 2023 OUTPATIENT VISIT TYPE NEW PRIMARY CARE PHYSICIAN: Giovani Hagen MD [address] [place] [address] CHIEF COMPLAINT: Syncope, cardiac evaluation for family testing HISTORY OF PRESENT ILLNESS: Ms. Harper is a 33 year old female who presents today for syncopal episodes. She has PMHx of IBS, bipolar disease, asthma and syncope. She reports her 9 years old daughter was having symptoms of shortness of breath without exertion and was seen by Dr. Asa Champino. 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 Reports symptoms of palpitations [...] No per (more content not included)... Normal [facility] ECG COMPLETEon 12-19-2023 ECG COMPLETE Ventricular Rate : 8 8 BPM Atrial Rate : 88 BPM P-R Interval : 148 ms QRS Duration : 78 ms Q-T Interval : 380 ms QTC Calculation(Bazett) : 459 ms Calculated P Blanca : 62 degrees Calculated R Blanca : 55 degrees Calculated T Blanca : 38 degrees NORMAL SINUS RHYTHM NORMAL ECG Confirmed by MD BAH HEBA ([id number]) on 12/30/2023 6:45:12 PM NAME : ORION HARPER PID : [id number] : 1990 Gender : Female Race : Other ORD : [id number] Procedure Date : Dec 19 2023 13:51:58 Edit Date : Dec 30 2023 18:45:15 Diagnosis: NORMAL SINUS RHYTHM NORMAL ECG Confirmed by MD BAH HEBA ([id number]) on 12/30/2023 6:45:12 PM Test Reason : Location : [facility] : [facility] J1-4 Overread By : MD BAH HEBA Edited By : MD BAH HEBA Referred By : , Acquired by : CHELSEY JOSEPH [facility] ALL CBC WITH AUTO DIFFon BASOPHILS ABSOLUTE AUTO 0.0 [facility] Basophils/100 WBC (Bld) 0.4 % 0.2 - 2.0 % [facility] Eosinophils/100 WBC (Bld) 2.8 % 0.9 - 7.0 % [facility] Erythrocyte distribution width (RBC) [Ratio] 12.4 % 11.0 - 15.0 % [facility] Hematocrit (Bld) [Volume fraction] 41.9 % 36.0 - 48.0 % [facility] Hemoglobin (Bld) [Mass/Vol] 14.2 g/dL 12.0 - 16.0 g/dL [facility] IMMATURE GRANULOCYTES ABS AUTO 0.03 [facility] Immature granulocytes/100 WBC (Bld) 0.4 % 0.0 - 0.5 % [facility] LYMPHOCYTES ABSOLUTE AUTO 2.8 [facility] Lymphocytes/100 WBC (Bld) 35.6 % 20.5 - 60.0 % [facility] MCH (RBC) [Entitic mass] 32.1 pg 26.7 - 34.0 pg [facility] MCHC (RBC) [Mass/Vol] 33.9 g/dL 29.9 - 35.2 g/dL [facility] MCV (RBC) [Entitic vol] 94.8 fL 81.0 - 99.0 fL [facility] MONOCYTES ABSOLUTE AUTO 0.5 [facility] Monocytes/100 WBC (Bld) 6.0 % 1.7 - 12.0 % [facility] NEUTROPHILS ABSOLUTE AUTO 4.3 [facility] Neutrophils/100 WBC (Bld) 54.8 % 43.0 - 75.0 % [facility] Platelet mean volume (Bld) [Entitic vol] 10.4 fL 9.5 - 13.5 fL [facility] TBH EO # 0.2 [facility] TBH PLT 265 [facility] TB RBC 4.42 [facility] TB WBC 7.8 [facility] CNPNon 11-02-2023 CNPN Telephone (CARDMN) MEREDITHORION ([id number]) 1990 F Date Time Provider Department 11/02/23 [...] Status:Closed by CRISS MCCRARY on 11/02/23 Normal [facility] Extra Lavender Tubeon 2022 Extra Lavender Tube Normal [facility] Comment on above: Performed By: #### X LAV, LIVP, LIP #### [facility] [address] [place] [address] Blow Torch Burner: Ronald Pearce MD Lipaseon 03-24-2023 Lipase [Catalytic activity/Vol] 260 U/L High 13-60 [facility] Comment on above: Performed By: #### X LAV, LIVP, LIP #### [facility] [address] [place] [address] Blow Torch Burner: Ronald Pearce MD Liver Profileon 03-24-2023 Albumin [Mass/Vol] 3.5 g/dL Normal 3.5-5.2 [facility] Comment on above: Performed By: #### X LAV, LIVP, LIP ####[facility] [id number] [place] [address] Lab Director: Ronald Pearce MD Alkaline Phos 321 U/L High 35-104 [facility] Comment on above: Performed By: #### X LAV, LIVP, LIP ####[facility] [address] [place] [address] Lab Director: Ronald Pearce MD ALT [Catalytic activity/Vol] 137 U/L High 5-33 [facility] Comment on above: Performed By: #### X LAV, LIVP, LIP ####[facility] [address] [place] [address] Lab Director: Ronald Pearce MD AST [Catalytic activity/Vol] 60 U/L High <32 [facility] Comment on above: Performed By: #### X LAV, LIVP, LIP ####[facility] [address] [place] [address] Lab Director: Ronald Pearce MD Bilirubin [Mass/Vol] 1.0 mg/dL Normal 0.3-1.2 [facility] Comment on above: Performed By: #### X LAV, LIVP, LIP ####[facility] [address] [place] [address].[place] [address] Lab Director: Ronald Pearce MD Bilirubin, Indirect 0.4 mg/dL Normal 0.0-1.0 [facility] Comment on above: Performed By: #### X LAV, LIVP, LIP ####[facility] [address] [place] [address].[place] [address] Lab Director: Ronald Pearce MD Bilirubin.indirect [Mass/Vol] 0.6 mg/dL High <0.3 [facility] Comment on above: Performed By: #### X LAV, LIVP, LIP ####[facility] [address] [place] [address].[place] [address] Lab Director: Ronald Pearce MD Protein [Mass/Vol] 5.7 g/dL Low 6.4-8.3 [facility] Comment on above: Performed By: #### X LAV, LIVP, LIP ####[facility] [address] [place] [address].[place], [place] [phone] Director: Ronald Pearce MD Extra Lavender Tubeon 2022 Extra Lavender Tube Normal [facility] Comment on above: Performed By: #### L IVP, XLAV ####[facility] [address] [place] [address] lab Director: Ronald Pearce MD FL CHOLANGIOGRAM [...] Danny Cole MD 03/23/23 Final result Normal [facility] Liver Profileon 03-23-2023 Albumin [Mass/Vol] 3.5 g/dL Normal 3.5-5.2 [facility] Comment on above: Performed By: #### L IVP, XLAV ####[facility] [address] [place] [address] Lab Director: Ronald Pearce MD Alkaline Phos 293 U/L High 35-104 [facility] Comment on above: Performed By: #### L IVP, XLAV ####[facility] [address] [facility] [place] [address] Lab Director: Ronald Pearce MD ALT [Catalytic activity/Vol] 111 U/L High 5-33 [facility] Comment on above: Performed By: #### L IVP, XLAV ####[facility] [address] [place] [address] Lab Director: Ronald Pearce MD AST [Catalytic activity/Vol] 43 U/L High <32 [facility] Comment on above: Performed By: #### L IVP, XLAV ####[facility] [address] [place] [address] Lab Director: Ronald Pearce MD Bilirubin [Mass/Vol] 2.6 mg/dL High 0.3-1.2 [facility] Comment on above: Performed By: #### L IVP, XLAV ####[facility] [address] [place] [phone] Director: Ronald Pearce MD Bilirubin, Indirect 0.8 mg/dL Normal 0.0-1.0 [facility] Comment on above: Performed By: #### L IVP, XLAV ####[facility] [address], [place] [phone] Director: Ronald Pearce MD Bilirubin.indirect [Mass/Vol] 1.8 mg/dL High <0.3 [facility] Comment on above: Performed By: #### L IVP, XLAV ####[facility] [address] [place] [address] Lab Director: Ronald Pearce MD Protein [Mass/Vol] 5.7 g/dL Low 6.4-8.3 [facility] Comment on above: Performed By: #### L IVP, XLAV ####[facility] [address] [place] [phone] Director: Ronald Pearce MD Surgical Pathology Reporton 03-23-2023 Surgical Pathology Report (NOTE) Path Number: [id number] -- Diagnosis -- A. GALLBLADDER AND CONTENTS, CHOLECYSTECTOMY: Cholelithiasis. Lulú Javed M.D. Electronically Signed Out kmg203/27/2023 Clinical Information Pre-op Diagnosis: ACUTE PANCREATITIS, UNSPECIFIED COMPLICATED STATUS, UNSPECIFIED TYPE Operative Findings: GALLBLADDER AND CONTENTS Operation Performed: LAPAROSCOPIC CHOLECYSTECTOMY tm Source of Specimen A: GALLBLADDER AND CONTENTS Gross Description ORION HARPER GALLBLADDER AND CONTENTS Received in formalin [...] lesions or periductal lymph nodes are identified. Grain Farmer sections 1c. tm SM/tb1:03/24/2023 Microscopic Description Microscopic examination performed. Processing Lab: [address] [phone] Interpretation Performed at [address] [phone] SURGICAL PATHOLOGY CONSULTATION Patient Name: ORION HARPER [facility] Rec: [id number] [facility] ANATOMIC PATHOLOGY [address] [place], [place] [id number] Normal [facility] CBC with Diffon 03-22-2023 Abs. Basophil <0.03 Normal 0.00-0.20 [facility] Comment on above: Performed By: #### C DP, LIP, CMPX #### [facility] [address] [place], [place] [phone] Blow Torch Burner: Ronald Pearce MD #### TRIG #### [facility] [employer] [address] [place] [address] Blow Torch Burner: Elio Marley MD Abs.Imm.Granulocyte 0.03 k/uL Normal 0.00-0.30 [facility] Comment on above: Performed By: #### C DP, LIP, CMPX #### [facility] [address] [place] [address] Blow Torch Burner: Ronald Pearce MD #### TRIG #### [address] [address] Blow Torch Burner: Elio Marley MD Abs.Neutrophil (Seg) 6.89 k/uL Normal 1.50-8.10 [facility] Comment on above: Performed By: #### C DP, LIP, CMPX #### [facility] [address] [place] [address] Blow Torch Burner: Ronald Pearce MD #### TRIG #### [address] [phone] Blow Torch Burner: Elio Marley MD Basophils/100 WBC (Bld) 0 % Normal 0-2 [facility] Comment on above: Performed By: #### C DP, LIP, CMPX #### [facility] [address] [place] [address] Blow Torch Burner: Ronald Pearce MD #### TRIG #### [address] [address] Blow Torch Burner: Elio Marley MD Eosinophils (Bld) [#/Vol] 0.07 10*3/uL Normal 0.00-0.44 [facility] Comment on above: Performed By: #### C DP, LIP, CMPX #### [facility] [address] [place] [address] Blow Torch Burner: Ronald Pearce MD #### TRIG #### [address] [address] Blow Torch Burner: Elio Marley MD Eosinophils/100 WBC (Bld) 1 % Normal 1-4 [facility] Comment on above: Performed By: #### C DP, LIP, CMPX #### [facility] [address] [place] [address] Blow Torch Burner: Ronald Pearce MD #### TRIG #### [address] [address] Blow Torch Burner: Elio Marley MD Erythrocyte distribution width (RBC) [Ratio] 12.2 % Normal 11.8-14.4 [facility] Comment on above: Performed By: #### C DP, LIP, CMPX #### [facility] [address] [place] [address] Blow Torch Burner: Ronald Pearce MD #### TRIG #### [address] [address] Blow Torch Burner: Elio Marley MD Hematocrit (Bld) [Volume fraction] 36.9 % Normal 36.3-47.1 [facility] Comment on above: Performed By: #### C DP, LIP, CMPX #### [facility] [address] [place] [address] Blow Torch Burner: Ronald Pearce MD #### TRIG #### [address] [address] Blow Torch Burner: Elio Marley MD Hemoglobin (Bld) [Mass/Vol] 12.1 g/dL Normal 11.9-15.1 [facility] Comment on above: Performed By: #### C DP, LIP, CMPX #### [facility] [address] [place] [address] Blow Torch Burner: Ronald Pearce MD #### TRIG #### [address] [address] Blow Torch Burner: Elio Marley MD Immature granulocytes/100 WBC (Bld) 0 % Normal 0 [facility] Comment on above: Performed By: #### C DP, LIP, CMPX #### [facility] [address] [place] [address] Blow Torch Burner: Ronald Pearce MD #### TRIG #### [address] [address] Blow Torch Burner: Elio Marley MD Lymphocytes (Bld) [#/Vol] 1.62 10*3/uL Normal 1.10-3.70 [facility] Comment on above: Performed By: #### C DP, LIP, CMPX #### [facility] [place] [address] Blow Torch Burner: Ronald Pearce MD #### TRIG #### [address] [address] Blow Torch Burner: Elio Marley MD Lymphocytes/100 WBC (Bld) 18 % Low 24-43 [facility] Comment on above: Performed By: #### C DP, LIP, CMPX #### [facility] [address] [place] [address] Blow Torch Burner: Ronald Pearce MD #### TRIG #### [address] [address] Blow Torch Burner: Elio Marley MD MCH (RBC) [Entitic mass] 32.5 pg Normal 25.2-33.5 [facility] Comment on above: Performed By: #### C DP, LIP, CMPX #### [facility] [place] [address] Blow Torch Burner: Ronald Pearce MD #### TRIG #### [address] [address] Blow Torch Burner: Elio Marley MD MCHC (RBC) [Mass/Vol] 32.8 g/dL Normal 28.4-34.8 [facility] Comment on above: Performed By: #### C DP, LIP, CMPX #### [facility] [address] [place] [address] Blow Torch Burner: Ronald Pearce MD #### TRIG #### [address] [address] Blow Torch Burner: Elio Marley MD MCV (RBC) [Entitic vol] 99.2 fL Normal 82.6-102.9 [facility] Comment on above: Performed By: #### C DP, LIP, CMPX #### [facility] [address] [place] [address] Blow Torch Burner: Ronald Pearce MD #### TRIG #### [address] [address] Blow Torch Burner: Elio Marley MD Monocytes (Bld) [#/Vol] 0.57 10*3/uL Normal 0.10-1.20 [facility] Comment on above: Performed By: #### C DP, LIP, CMPX #### [facility] [address] [place] [address] Blow Torch Burner: Ronald Pearce MD #### TRIG #### [address] [address] Blow Torch Burner: Elio Marley MD Monocytes/100 WBC (Bld) 6 % Normal 3-12 [facility] Comment on above: Performed By: #### C DP, LIP, CMPX #### [facility] [address] [place] [address] Blow Torch Burner: Ronald Pearce MD #### TRIG #### [address] [address] Blow Torch Burner: Elio Marley MD Neutrophil (Seg) 75 % High 36-65 [facility] Comment on above: Performed By: #### C DP, LIP, CMPX #### [facility] [address] [place] [address] Blow Torch Burner: Ronald Pearce MD #### TRIG #### [address] [address] Blow Torch Burner: Elio Marley MD NRBC Automated 0.0 per 100 WBC Normal 0.0 [facility] Comment on above: Performed By: #### C DP, LIP, CMPX #### [facility] [address] [place] [address] Blow Torch Burner: Ronald Pearce MD #### TRIG #### [address] [address] Blow Torch Burner: Elio Marley MD Platelet mean volume (Bld) [Entitic vol] 10.7 fL Normal 8.1-13.[address] [facility] Comment on above: Performed By: #### C DP, LIP, CMPX #### [facility] [address] [place] [address] Blow Torch Burner: Ronald Pearce MD #### TRIG #### [address] [address] Blow Torch Burner: Elio Marley MD Platelets (Bld) [#/Vol] 188 10*3/uL Normal 138-453 [facility] Comment on above: Performed By: #### C DP, LIP, CMPX #### [facility] [place] [address] Blow Torch Burner: Ronald Pearce MD #### TRIG #### [address] [address] Blow Torch Burner: Elio Marley MD RBC (Bld) [#/Vol] 3.72 10*6/uL Low 3.95-5.11 [facility] Comment on above: Performed By: #### C DP, LIP, CMPX #### [facility] [address] [place] [address] Blow Torch Burner: Ronald Pearce MD #### TRIG #### [address] [address] Blow Torch Burner: Elio Marley MD WBC (Bld) [#/Vol] 9.2 10*3/uL Normal 3.5-11.3 [facility] Comment on above: Performed By: #### C DP, LIP, CMPX #### [facility] [address] [place] [address] Blow Torch Burner: Ronald Pearce MD #### TRIG #### [address] [address] Blow Torch Burner: Elio Marley MD Comp Metabolic Pr/rfx MGon 1 05-22-2022 Albumin [Mass/Vol] 3.5 g/dL Normal 3.5-5.2 [facility] Comment on above: Performed By: #### C DP, LIP, CMPX #### [facility] [address] [place] [address] Blow Torch Burner: Ronald Pearce MD #### TRIG #### [address] [address] Blow Torch Burner: Elio Marley MD Alkaline Phos 157 U/L High 35-104 [facility] Comment on above: Performed By: #### C DP, LIP, CMPX #### [facility] [address] [place] [address] Blow Torch Burner: Ronald Pearce MD #### TRIG #### [address] [address] Blow Torch Burner: Elio Marley MD ALT [Catalytic activity/Vol] 131 U/L High 5-33 [facility] Comment on above: Performed By: #### C DP, LIP, CMPX #### [facility] [address] [place] [address] Blow Torch Burner: Ronald Pearce MD #### TRIG #### [address] [address] Blow Torch Burner: Elio Marley MD Anion gap [Moles/Vol] 11 mmol/L Normal 9-17 [facility] Comment on above: Performed By: #### C DP, LIP, CMPX #### [facility] [address] [place] [address] Blow Torch Burner: Ronald Pearce MD #### TRIG #### [address] [address] Blow Torch Burner: Elio Marley MD AST [Catalytic activity/Vol] 34 U/L High <32 [facility] Comment on above: Performed By: #### C DP, LIP, CMPX #### [facility] [address] [place] [address] Blow Torch Burner: Ronald Pearce MD #### TRIG #### [address] [address] Blow Torch Burner: Elio Marley MD Bilirubin [Mass/Vol] 1.9 mg/dL High 0.3-1.2 [facility] Comment on above: Performed By: #### C DP, LIP, CMPX #### [facility] [address] [place] [address] Blow Torch Burner: Ronald Pearce MD #### TRIG #### [address] [address] Blow Torch Burner: Elio Marley MD BUN/CRE Ratio 17 Normal 9-20 [facility] Comment on above: Performed By: #### C DP, LIP, CMPX #### [facility] [address] [place] [address] Blow Torch Burner: Ronald Pearce MD #### TRIG #### [address] [address] Blow Torch Burner: Elio Marley MD Calcium [Mass/Vol] 8.1 mg/dL Low 8.6-10.4 [facility] Comment on above: Performed By: #### C DP, LIP, CMPX #### [facility] [address] [place] [address] Blow Torch Burner: Ronald Pearce MD #### TRIG #### [address] [address] Blow Torch Burner: Elio Marley MD Chloride [Moles/Vol] 105 mmol/L Normal 98-107 [facility] Comment on above: Performed By: #### C DP, LIP, CMPX #### [facility] [address] [place] [address] Blow Torch Burner: Ronald Pearce MD #### TRIG #### [address] [address] Blow Torch Burner: Elio Marley MD CO2 [Moles/Vol] 21 mmol/L Normal 20-31 [facility] Comment on above: Performed By: #### C DP, LIP, CMPX #### [facility] [address] [place] [address] Blow Torch Burner: Ronald Pearce MD #### TRIG #### [address] [address] Blow Torch Burner: Elio Marley MD Creatinine [Mass/Vol] 0.6 mg/dL Normal 0.5-0.9 [facility] Comment on above: Performed By: #### C DP LIP, CMPX #### [facility] [address] [place] [address] Blow Torch Burner: Ronald Pearce MD #### TRIG #### [address] [address] Blow Torch Burner: Elio Marley MD GFR/1.73 sq M.predicted among non-blacks MDRD (S/P/Bld) [Vol rate/Area] mL/min/{1.73_m2} Normal >60 [facility] Comment on above: Result Comment: These results [...] renal tubular secretion. Performed By: #### C DP LIP, CMPX #### [facility] [address] [place] [address] Blow Torch Burner: Ronald Pearce MD #### TRIG #### [address] [address] Blow Torch Burner: Elio Marley MD Glucose [Mass/Vol] 75 mg/dL Normal 70-99 [facility] Comment on above: Performed By: #### C DP LIP, CMPX #### [facility] [address] [place] [address] Blow Torch Burner: Ronald Pearce MD #### TRIG #### [address] [address] Blow Torch Burner: Elio Marley MD Potassium [Moles/Vol] 4.0 mmol/L Normal 3.7-5.3 [facility] Comment on above: Performed By: #### C DP, LIP, CMPX #### [facility] [address] [place] [address] Blow Torch Burner: Ronald Pearce MD #### TRIG #### [address] [address] Blow Torch Burner: Elio Marley MD Protein [Mass/Vol] 5.7 g/dL Low 6.4-8.3 [facility] Comment on above: Performed By: #### C DP, LIP, CMPX #### [facility] [address] [place] [address] Blow Torch Burner: Ronald Pearce MD #### TRIG #### [address] [address] Blow Torch Burner: Elio Marley MD Sodium [Moles/Vol] 137 mmol/L Normal 135-144 [facility] Comment on above: Performed By: #### C DP, LIP, CMPX #### [facility] [address] [place] [address] Blow Torch Burner: Ronald Pearce MD #### TRIG #### [address] [address] Blow Torch Burner: Elio Marley MD Urea nitrogen [Mass/Vol] 10 mg/dL Normal 6-20 [facility] Comment on above: Performed By: #### C DP, LIP, CMPX #### [facility] [address] [place] [address] Blow Torch Burner: Ronald Pearce MD #### TRIG #### [address] [id number] Blow Torch Burner: Elio Marley MD K (Potassium)on 03-22-2023 Potassium [Moles/Vol] 3.8 mmol/L Normal 3.7-5.3 [facility] Comment on above: Performed By: #### K #### [facility] [address] [place] [address] Blow Torch Burner: Ronald Pearce MD Lipaseon 03-22-2023 Lipase [Catalytic activity/Vol] 198 U/L High 13-60 [facility] Comment on above: Performed By: #### C DP, LIP, CMPX #### [facility] [address] [place] [address] Blow Torch Burner: Ronald Pearce MD #### TRIG #### [place] [place], [place] [id number] Blow Torch Burner: Elio Marley MD MRI ABDOMEN WO CONTRAST [...] Daniel Hooker MD 03/22/23 Final result Normal [facility] Triglycerideson 03-22-2023 Triglyceride [Mass/Vol] 102 mg/dL Normal 0-149 [facility] Comment on above: Result Comment: Triglyceride Guidelines: <150 Desirable 150-199 Borderline 200-499 High >499 Very high Based on AHA Guidelines for fasting triglyceride, January 2012. Performed By: #### C DP, LIP, CMPX #### [facility] [address] [place], [place] [id number] Blow Torch Burner: Ronald Pearce MD #### TRIG #### [facility] [address] [place], [place] [id number] Blow Torch Burner: MD Lincoln Gordillo 03-20-2023 [facility] Telephone (FVPRAD) ORION HARPER ([id number]) 1990 F Date Time Provider Department 03/20/23 [...] Encounter Status:Closed by CHARLETTE CAMPUZANO on 03/20/23 [facility] DENY Antinuclear Antibodieson 10-26-2022 Antinuclear Abs, IFA Negative Normal . [facility] Comment on above: Order Comment: Reaso n for Exam Elevated liver enzymes Result Comment: Nega tive <1:80 Borderline 1:80 Positive >1:80 ICAP nomenclature: AC-0 For more information about Hep-2 cell patterns use ANApatterns.org, the official website for the International Consensus on Antinuclear Antibody (DENY) Patterns (ICAP). Performed at: [facility] [address] [id number] Blow Torch Burner: Demarcus Moreno PhD, Phone: [phone] Performed By: #### A NA, HEMOCHROM, IGG, MITOM2, ALPHA PHEN, HAABT, SMAB, CERULOP, L-K MICRO #### [facility] , #### CONSTANTINO #### [facility] [address] Pgawq-5-Rtcnvzspkaa Phenotyp maki 10-26-2022 Alpha 1 Anti-Trypsin 121 mg/dL Normal 100-188 [facility] Comment on above: Order Comment: Reaso n for Exam Elevated liver enzymes Performed By: #### A NA, HEMOCHROM, IGG, MITOM2, ALPHA PHEN, HAABT, SMAB, CERULOP, L-K MICRO #### [facility] , #### CONSTANTINO #### [facility] [address] [place] [address] Phenotype (P1) MM Normal . [facility] Comment on above: Order Comment: [...] Ranges used to confirm phenotype. Performed at: [address] [id number] Blow Torch Burner: Demarcus Moreno PhD, Phone: [phone] Performed at: [address] [id number] Blow Torch Burner: Yuli Callejas MD, Phone: [phone] Performed By: #### A NA, HEMOCHROM, IGG, MITOM2, ALPHA PHEN, HAABT, SMAB, CERULOP, L-K MICRO #### [facility] , #### CONSTANTINO #### [address] Ceruloplasminon 10-26-2022 Ceruloplasmin 27.2 mg/dL Normal 19.0-39.0 [facility] Comment on above: Order Comment: Reaso n for Exam Elevated liver enzymes Result Comment: Perf ormed at: [address] [id number] Blow Torch Burner: Demarcus Moreno PhD, Phone: [phone] PERFORMED BY: [place] [address] PATHOLOGIST [employer] [place] ILIANA CAMP M.D. Performed By: #### A NA, HEMOCHROM, IGG, MITOM2, ALPHA PHEN, HAABT, SMAB, CERULOP, L-K MICRO #### [facility] , #### CONSTANTINO #### [facility] [address] [place] [address] Ferritinon 10-26-2022 Ferritin [Mass/Vol] 106.5 ng/mL Normal 11.0-306.8 [facility] Comment on above: Order Comment: pt is fasting Reason for Exam Elevated liver enzymes Result Comment: PERF ORMED BY: [place] [address] PATHOLOGIST [employer] JIANLAN SUN M.D. Performed By: #### A NA, HEMOCHROM, IGG, MITOM2, ALPHA PHEN, HAABT, SMAB, CERULOP, L-K MICRO #### [facility] , #### CONST[place]INO #### [address] Ferritin [Mass/volume] in Se rum or PlasmaOrdered By: Erwin Hylton on 10-26-2022 Ferritin [Mass/Vol] 106.5 ng/mL 11.0-306.8 [facility] Hepatitis A Antibody Totalon 10-26-2022 Hepatitis A Antibody Total Negative Normal Negative [facility] Comment on above: Order Comment: Reaso n for Exam Elevated liver enzymes Result Comment: Perf ormed at: [facility] [address] [id number] Blow Torch Burner: Demarcus Moreno PhD, Phone: [phone] PERFORMED BY: [place] [address] PATHOLOGIST [employer] ILIANA CAMP M.D. Performed By: #### A NA, HEMOCHROM, IGG, MITOM2, ALPHA PHEN, HAABT, SMAB, CERULOP, L-K MICRO #### [facility] , #### CONST[place]INO #### [address] Hereditary Hemochromatosis,D NAon 10-26-2022 Hereditary Hemochromatosis Normal . [facility] Comment on above: Order Comment: Reaso n for Exam Elevated liver enzymes Result Comment: Resu lt: c.845G>A (p.Sfd208Pes) - Not Detected c.187C>G (p.Bwq73Zqq) - Not Detected c.193A>T (p.Nyh88Obh) - Not Detected Not associated with increased [...] for patients who are homozygous for c.845G>A (p.Xnr203Nfh) and have yet to experience clinical symptoms. Comments: The most common HFE variants associated with hereditary hemochromatosis are c.845G>A (p.Rqn149Cfi), c.187C>G (p.Zsu58Vuh), c.193A>T (p.Dtv48Sct). While patients homozygous for c.845G>A (p.Esn884Dhv) are the most likely to present clinical symptoms, less than 10% develop clinically significant iron overload with tissue and organ damage. Genetic counseling is recommended to discuss the potential clinical implications of positive results, as well as recommendations for testing family members. Genetic Coordinators are available for health care providers to discuss results at [phone] Test Details: Three variants analyzed: c.845G>A (p.Ykc294Mjj), commonly referred to as C282Y c.187C>G (p.Oto67Djj), commonly referred to as H63D c.193A>T (p.Uan61Euh), commonly referred to as S65C Methods/Limitations: DNA [...] developed and its performance characteristics determined by [employer]. It has not been cleared or approved by the Food and Drug Administration. References: Brodie BR, Yoav PC, Deborah KV, Raymond LW, Ramsey ; [place] [employer] for the Study of Liver Diseases. Diagnosis and management of hemochromatosis: 2011 practice guideline by the [place] [employer] for the [employer] Liver Diseases. Hepatology. 2011 Oct;54(1):328-43. doi: 10.1002/hep.71023. PMID: 78527606; PMCID: VBQ8451535. Cora G, Olegario P, Fabio MCDONALD, Tabatha H, Love O, Zev S, Vazquez I, Kofi M, Sunitha S. [facility] best practice guidelines for the molecular genetic diagnosis of hereditary hemochromatosis (HH). Eur J Hum Margaret. 2016 Jul;24(4):479-95. doi: 10.1038/ejhg.2015.128. Epub 2014Oct 29. PMID: 41628862; PMCID: TIZ0869642. Performed By: #### A NA, HEMOCHROM, IGG, MITOM2, ALPHA PHEN, HAABT, SMAB, CERULOP, L-K MICRO #### [facility] , #### CONSTANTINO #### [facility] [address] [place] [address] Reviewed by: Dm Reyna, PhD Normal . [facility] Comment on above: Order Comment: Reaso n for Exam Elevated liver enzymes Result Comment: Perf ormed at: TG - [facility] [address] [place], [place] [id number] Blow Torch Burner: Vivian Kelley [facility], Phone: [phone] PERFORMED BY: [place] [address] PATHOLOGIST [employer] ILIANA CAMP M.D. Performed By: #### A NA, HEMOCHROM, IGG, MITOM2, ALPHA PHEN, HAABT, SMAB, CERULOP, L-K MICRO #### [facility] , #### CONSTANTINO #### [facility] [address] [place] [address] Immunoglobulin Harvey 3 Immunoglobulin G 865 mg/dL Normal 586-1602 [facility] Comment on above: Order Comment: Reaso n for Exam Elevated liver enzymes Result Comment: Perf ormed at: CB - [facility] [address] [place], [place] [id number] Blow Torch Burner: Demarcus Moreno PhD, Phone: [phone] Performed By: #### A NA, HEMOCHROM, IGG, MITOM2, ALPHA PHEN, HAABT, SMAB, CERULOP, L-K MICRO #### [facility] , #### CONSTANTINO #### [address] Liver-Kidney Microsomal Abon 10-26-2022 Liver-Kidney Microsomal Ab <1.0 Normal 0.0-20.0 [facility] Comment on above: Order Comment: [...] MICRO #### [facility] , #### [place] #### [place] [address] [place] Mitochondrial (M2) Antibodyo n 10-26-2022 Mitochondrial (M2) Antibody <20.0 Normal 0.0-20.0 [facility] Comment on above: Order Comment: Reaso n for Exam Elevated liver enzymes Result Comment: Nega tive 0.0 - 20.0 Equivocal 20.1 - 24.9 Positive >24.9 Mitochondrial (M2) Antibodies are found in 90-96% of patients with primary biliary cirrhosis. Performed at: [address] [id number] Blow Torch Burner: Demarcus Moreno PhD, Phone: [phone] Performed By: #### A NA, HEMOCHROM, IGG, MITOM2, ALPHA PHEN, HAABT, SMAB, CERULOP, L-K MICRO #### [facility] , #### CONSTANTINO #### [place] [address] [place] Smooth Muscle Antibodyon Smooth Muscle Antibody 4 Normal 0-19 [facility] Comment on above: Order Comment: Reaso n [...] MICRO #### [facility] , #### CONSTANTINO #### [facility] [address] [place] liveron 10-26-2022 liver [facility] [place] [address] [place] [address] Ultrasound Report Signed Patient: Orion Harper MR#: [id number] : 1990 Acct:[id number] Age/Sex: 32 / F ADM Date: 10/26/22 Loc: Room: Type: [facility] Attending Dr: Erwin Hylton MD Ordering Provider: [...] Perdomo Jr., D.O.10/26/2022 3:24 PM Dictation Location: [place] [address] Tech: Francia Lopez Transcribed By: GRANT 10/26/22 1524 Dictated By: Alexandro Perdomo Jr, DO 10/26/22 152 Signed By: 10/26/22 1524 [facility] [place] GASTRIC EMPTYING SOLIDon 09-12-2022 [facility] Stomach Views for gastric emptying solid phase W radionuclide Izabella 09-12-2022 IMPRESSION: EVIDENCE OF DELAYED RATE OF GASTRIC EMPTYING OF SOLID MEAL. ABNORMAL STUDY: 36-50% RETENTION AT 4 HOURS IS CONSISTENT WITH SEVERE GASTROPARESIS. Navigation Teacher: MINAL Transcribe Date/Time: Sep 12 2022 3:02P Dictated by : LUZ MARINA VÁZQUEZ MD This examination was interpreted and the report reviewed and electronically signed by: LUZ MARINA VÁZQUEZ MD on Sep 12 2022 3:05PM [facility] * * *Final Report* * * DATE OF EXAM: Sep 12 2022 2:44PM [facility] 0017 - [place] GASTRIC EMPTYING SOLID / PROCEDURE REASON: Nausea [...] (rapid emptying is <30% retention at 1hr). [facility] Provider, Iain mccarthy [place] - 09/12/2022 * * *Final Report* * * DATE OF EXAM: Sep 12 2022 2:44PM [facility] 0017 - DC GASTRIC EMPTYING SOLID / PROCEDURE REASON: Nausea [...] 4 HOURS IS CONSISTENT WITH SEVERE GASTROPARESIS. Navigation Teacher: PSCB Transcribe Date/Time: Sep 12 2022 3:02P Dictated by : LUZ MARINA VÁZQUEZ MD This examination was interpreted and the report reviewed and electronically signed by: LUZ MARINA VÁZQUEZ MD on Sep 12 2022 3:05PM [facility] Radiology Study observation (narrative) [facility] Stomach Views for gastric emptying solid phase W radionuclide POOrdered By: Ccf Provider on 09-12-[address] [facility] EGD Study observation Narrat napoleon 09-02-2022 [facility] Gastroenterology Gastrointestinal Endoscopy Patient Name: Orion Harper Procedure Date: 08/31/2022 2:51 PM Date of : 1990 Admit Type: Outpatient Age: 31 Room: [place] [address] Gender: Female Note Status: Trimmer Loader Override Attending MD: Carol Winn MD Procedure: Upper GI endoscopy Indications: Follow-up of Helicobacter pylori, Follow-up of gastric ulcer Providers: Carol Winn MD Patient Profile: This is a 31 year old female. Refer to note in patient chart for documentation of history and physical. Referring Physician: Carol Winn MD (Referring MD), Giovani Hagen MD (Referring ) Medicines: Monitored Anesthesia Care Complications: No immediate [...] verified by the physician, the nurse, the machine builder and the aerospace physiological technician in the procedure room at 14:52 [...] the gastric (more content not included)... [employer] [facility] SURGICAL PATHOLOGYOrdered By : Jameel Jasmine on 09-01-2022 Case Report Surgical Pathology Report Case: [id number] Authorizing Provider: Carol Winn MD Collected: 08/31/2022 03:04 PM Ordering Location: Ambulatory Surgery Received: 08/31/2022 09:20 PM Pathologist: Jameel Jasmine MD Specimens: A) - SMALL INTESTINE BIOPSY, r/o celiac B) - ANTRUM (STOMACH) BIOPSY, r/o hpylori C) - STOMACH BIOPSY, gastric body r/o hpylori [facility] Work Phone: Diagnosis Comment o5yjaCEhKSLdeIXqCUDm N UcjtsEeHGOqmXEyW1Yrnr wiTHrpAO7jGT4inXtwzFH ldVGsNDOcHjLjw9nax358 qAGpe8mzPCRSujhkoVa9e FfnW16ed7D2QsykL43ynN CtLPR2BGLnLFRcfMXoGXG qRVM2BGUnqRRcV6edOSCy OA0gcvgfUTvnSSpoLGKva ZK1GNMaaSAtL0WaKTLgKE kdHPFjjqu2XhIvQl4ucUQ yeTcyMFxwYXJkXHBsYWlu EEHlDnFbGCmpfe0aI71zr FUtXEiecVmhQBOpm10oy2 gxx5OiiB53QDC8BUKxqVl asTVvLLLauLt0QRI6fZSp NVlcdDfxmZK3P8p7HUpcv HJhZXBpdGhlbGlhbCBseW 1ljQ3apTQzx3dqPiNRbRG rFXDwpG1ahR6wszSjbyEt uj85MPSwvWobRWd5JZKxN WNpZmljOyBkaWZmZXJlbn PuWLclX81tq3uwQWMxcHv gvgFrk768zQGdeY2dtWEj ZSBsYXRlbnQgIGNlbGlhY sYqjEB5YMvkLWGssGN0aZ RuqzOgGGMcYJGgCw1dhOu sZDKIP1LWZSLiIL1gHHps FcNzsZsvvVNpT3PkkTNdG F88OOCfqMxqMAsfssSddS RpbmcgSGVsaWNvYmFjdGV aWAS6hM6niXqrUM0epbdc c9DhIASrXzSbY00xeiCsH VGyQIehwVhow0Ctn0vlV7 clm4U7MUqasu9xyINzvE= = [facility] Work Phone: FINAL DIAGNOSIS t3getDXmTBIffVKrXILf N NlrghKmDYSqdPFoN1Rgos wlFKjeFU0jVO2bjFwaxXZ fiAAqGANxNaLyj8ffv599 tJSga9fyAVLZzyrpuJc2u AmaD30dt3F4OwipU28ivJ ViMHJ1CNAhRUSfmMXgEDA aOGI5NHVixQTqO0twJXOp GR2wbsgeCMiyZNgpQEMcw RV1HHCqoATzM7JuSMGkQU plBCKdrim2WgJnYe6zmUQ yeTcyMFxwYXJkXHBsYWlu WZHkIiKuQK1rIFEnNZihV GludGVzdGluZSwgYmlvcH Z3GoojkT5eVF7ZiDSzrBF irwUtd5SnleMvLW32N21d MLG3mJMsLL0yor2kwNP8u Ryfv5RcUBEyG0mdsLTdfG AlZYInzeHst2ujF8c8I3X hdGNoeSBpbmNyZWFzZSBp biBpbnRyYWVwaXRoZWxpY JnpiYsfkHbwU2c0PNQkgF hiUUftzS8vMXSrUSQOcB5 cVEZjLSKgwuEwrV6mKSLk g5QsvEullMhwKYZjZPGwn GEaApUlcCVsCJQ7zB5xyD Brh6CoP8uhyWUjXCAoaj9 wpYCyJUE8qEBhHWglr1Yq eRYtk8kwdT6yRR5By2Zss Es9HHMnz4JaQBQtgFOrGz QrnMKzNZT1xU7uvZKseyr yeglgmRXng24gum55sWds SPKptZFctodiK1kacO4rV EelnrGfHa7gOAZ5k30fT0 gpYIAaHStgYZJxt8UxxYc cbGluZSAtSGVsaWNvYmFj zWFsNDL7kB8lpKKrp5LxE 8eoeUJcWKLjus0bfPGtCJ N3oGNfNUejs9QovQBuw8h vxT6pEI6Tp4JzfQw9ZIJd a6DmUGEhkERzFbLjsTWhR IS4mH2oxAVaxqfxjcssgQ Ufu12dah05dMdmXRFlkLX rvaikH2suTRE3 [facility] Work Phone: Gross Description o6grxNKoYYEeeORYKVOa M XQmKM6gmXpdqJb2zMvkFZ IvvqA5gXEoOPfva6bmLHO 9p4ozusJWLveeBCGdJXhp LZLqobkqQxH1LAkrTCXmp yhrHXc4GKuoSOFnwJD6CE HdzABtF1SwSQNxUM1kmtg 9GPG8AEyrEQShMzF8AZBi LxVrYulwPTr0NTRadcB1D xc1DWJgIINkyLDef8S7DP nmefzkLNLitRSlJ565EIi eh0IbvWJnAHcjpBEgSYUK NmfgLrmzsXell9BlgROzS GlkIDUxMDAwIFxcbmggXF n8KGCnKPdwvLUxRD6prKq yMtxyrCkks9YebUFaTJff WEXnSRZnBJjmCVSkLV6VJ pRyASVrEMJ7UHunKlN0OJ e2BDEOCoMfZsUcPlXnXQD sVsUqMKv8CPv8TLtDQrLa VNKpJkBzHRQzClC1DHsfL yBcXHQgMiBcXGYgQXJpYW anEYzcrIJnBF2vrAnznQB pbiBBLiBTTUFMTCBJTlRF L5LMYvDbBqgYAUYSUBGhh iANClxlcGljTmVzdERvYz EgDQpcbHRycGFyXGxpbjB ccmluMCANClxsdHJjaFxm tpGlSCSnT1IgjgKcPRtdG RYkww6xfXciOGNvSFMhbW j3vAEiXNBzlIAtFQFmq2H kmUAeTGEsu4K1HQRtr4R2 XVWsX4sjGDxqkOvvXkX1l yAxLjAgeCAwLjIgeCAwLj NyC98fXDQjxHYmqOcvb6H dqPm5dPDwYCpjXH5lQRLv QVKvHTH1SB8pqQelBUFGA lxlcGljTmVzdERvYzBcdj U9UCJgaQUaAKT5CO1cJCA rzjnzGQJmWRPhBBL4EIsk qH14xBWpFFThCEKxmMUxn VxwbGFpbiANCntcKlxlcG bnz5ItcFSlZPcvAXIeIEQ nMZweUPNfXE4NRsMdHMSc VXS5VOemBwS9LUs3PYNWL lMgIiAgMzExNDIyNzQiID k8TGp9OAhUMqOuPCNhPpP xXWT0NRO6OUdhKcFfYDPa MiBcXGYgQXJpYWwgXFxmb UJrYZ3wjFrafZIvoejybi R5HNLfCZopURNoDGOTKIP EQZDyB8AAKHZFYQpkRikA UFNZXHBhciANClxlcGljT mVzdERvYzEgDQpcbHRycG FyXGxpbjBccmluMCANClx kdCXzdLgkhzOfLRPkI9Lg agFsUBdzIFFqsm7vjJsjT BSzILWfiJf6hWHqVJCvoF AmNINia9XslFLfGOBiw5L 8GCNam2M0NXMxO9qiJDop wFajPlA0lkFyAgHevPOdS yTdnODeTvYkL05jQFIxcJ IrzEzvu3WcaOs5dMBiSUs xJL9eONVhDTQzDWT5WG2u bGluZSANClxlcGljTmVzd CWrFxEdduW7ZUFuhGCpRC H6QF8bNHYrsehoXTItTFY fKMK3KKxsbD96kXUyYZUk MTZccGFyfVxwbGFpbiANC ohvUxoktDlcs4QoyIPoPX lkIDUxMDAyIFxcZGIgIE9 ANlXyVRYwOGA3EGekQnB5 AYk1PUALVhEiEmBsWtBzA GJlWtLdBTa1DEy5RCkVYe AdQDEzLgElFAp4WmE4DRw yNyBcXHQgMiBcXGYgQXJp CTjuOVuueRIzAU5akPbta AOskpwgipE3FIXsWGoiFX MlLPKLI21EX5cwWarMRAZ ZXHBhciANClxlcGljTmVz dERvYzEgDQpcbHRycGFyX GxpbjBccmluMCANClxsdH PjoYzmriVpSUUmM6PbawK vAJkzLNAvda8ocYyjRKJz YMVssQh9oOXqKARwbWGnC FUrz7RudAQyGWVvv3L0WF Wqa1M6MPZgU2zeIFcccXd pZjC3axKxGmykuTBeOtVc ySIfWjGmX36hQXFifNBny Etwd3AudBm2lPLdQQppNB 4uMEUqLUMzRDP5XQ0pbTv lNZSjMRGyvbRLHwpKBY7d eSAxMSwgMjAyMyAxOjQxI OEBFF3ncLMfFV8SURCacu DYAwjsw3NaKZO7VI7qfpO 1lP7hNXGonvYkmj2dIKNp nSTUwIM5ELslqcWwF5prv mnaTIB2ZRFmAWE5Z7dyCI ODoiVpKULWjAD1LWsnvjO kZF5NFAJ7TQw5AGVcwyZR ClxlcGljTmVzdERvYzBcd cU0GYQfpZEyCNR3KJ7fWO HlsgzxJKRkKGTuTNQ8WPv vqG95lSAjQTGcQYKprBYa eRaddNUwqqPIAbojhP9eN uEsw4brcLl5CLEIFawfxB BrvetgrtS0HYDhn4umsUe mu4VzsOXaLU4dpQvlyJ9i ZnMxNiANCn0= [facility] Work Phone: Performing Lab m1bhtKLjKVKinLJkVhGq M CCqYCVrb8rhCIXoqTXcMk EwMzNcZnRuYmpcdWMxXGR gZaRve7xls116xRAzs3pd FDCiDwT2dYNdRQXrnFMjW 661YNQzYOgoc2cff1KaYB ZyaCRaj6Y9KBXKtihmlBq 7rHpuH64di9C5LguaF5hc KRHhBSInC7DhWU9pURGvG iz2JBX4IMF8TWRfRQRuE1 CtRU1dOEGrcCLzHOu0r9d vkTpaKRSrMSK2a3lgCDhu sxJfYN3qza1irAs0x9ikw zEgRGVmYXVsdCBQYXJhZ3 MiyCdiDv1udGh9lHweCdc aPYW3Jfd3LV3qtl09xlk6 iFcvYDBnrjrxGdH6FDehY USeiivjYGc0VAnwIXGsyS G8YZRxfQUbS1ToSReqMI3 mohl0DOT7RVriTLXyMwX4 NDBcaGVhZGVyeTcyMFxmb 529KJB4YcBzDE4vN0Bzi4 F4mX7saIHpRRFynDHiKnK zJREdzm4fbXAuKBssl7Yb PHX7gqL6aXYuvBKcGUOgK Y74Olhfk9MdFwmun0EhM3 5vjXE0LSgpi0vpKH4pAcH 8sqRcSOlgz9sacW9bNuS4 ZNkqVH9fMS2zUHRwqF5tz mxjXHBnYnJkcmhlYWRccG vitwRyGc5agEeqYQE4QYe bG5bglK8zXrG4XRrwC7ov bL3zBYf6SXxnbND4CVWst U9sJO0rboxki5qwWNkfTJ swYPKwkfU2lxYuJDJmbRR aA8CrwC0zEYArUU6kfkrp v2obMUZ1RRpxIZGkDWG5V cTrLKAhn1Rcsow5HpVwh0 XxeGWfBJsbC46iu956TWN dpjJmH4odzJJjxxagkWDr acysZIdrooT6KSUiTPUiW WluXGYxXGZzMjJcbGFuZz EwMzNcaGljaFxmMVxkYmN nPUEhXQszM5jqOxYpVxPw LpJKeBNgcb6xnLewYQqnf PIinTTvxZD1oC4dHKZbvy Hyhn4cGKTnmIXXdSE8IIp nteYbP2vekjnaVJY9EUDf ROT9C3xaZWRCfpLzUYRpT LEnsBJqVZMLGOH6KXR1DB HkHDBOPKEeGHE3FSB7WIZ wOTRccGFyXHBhclxwYXJk XHBsYWluXGYwXGZzMjRcc GgguY4yAyFxFmNnXjfeOB 1dETQcJ5brePAmMFVaBBU eJ7ojAsDbjT3waHbyKUdc ZjJcZnMyMlxsdHJjaCBMY CPpsrH2g9S3AWfcvQSaow xmMVxmczIyXGxhbmcxMDM uBDveF9xfVpTsGJEjbFjx PPxkb1CbWTOqALHdTbWgF PfsICV4y1P8DGrhsGRojh UGHkIFOC0sdUKexushKV1 [address] [facility] Work Phone: [facility] Work Phone: EGD Study observation Narrat iveon 08-31-2022 Radiology Study observation (narrative) [facility] CITRATE URINE 24HRon 023 Citric Acid, U, 24hr 472 mg/24 hr Normal 320-1240 [facility] Comment on above: Result Comment: This test was developed and its performance characteristics determined by [employer]. It has not been cleared or approved by the Food and Drug Administration. Performed By: #### A LPHPHN #### [facility] [address] [place] [address] Dr. Li Nagel Citric Acid, Urine 472 mg/L Normal Undefined [facility] Comment on above: Performed By: #### A LPHPHN #### [facility] [address] [place] [address] Dr. Li Nagel OXALATE 24HR URINEon 023 Oxalates, Urine 19 mg/L Normal Undefined [facility] Comment on above: Performed By: #### O X24HR #### [facility] [address] [place] [address] Dr. Li Nagel Oxalates, Urine 24hr 19 mg/24 hr Normal 4-31 [facility] Comment on above: Performed By: #### O X24HR #### [facility] [address] [place] [address] Dr. Li Nagel MAGNESIUM 24HR URINEon 07-09 Magnesium 24hr Urine 45.0 mg/24 hr Normal 12.0-293.0 T [facility] Comment on above: Performed By: #### I MMUN G #### [facility] [address] [place] [address] Dr. Li Nagel Magnesium UR 4.5 mg/dL Normal Not Estab. [facility] Comment on above: Performed By: #### I MMUN G #### [facility] [address] [place] [address] Dr. Li Nagel PHOSPHORUS 24HR URINEon 06-22 Phosphorus, Urine 51.4 mg/dL Normal Not Estab. [facility] Comment on above: Performed By: #### P HOS 24 #### [facility] [address] [place] [address] Dr. Li Nagel Phosphorus, Urine 24hr 514 mg/24 hr Normal 261-1078 [facility] Comment on above: Performed By: #### P HOS 24 #### [facility] [address] [place] [address] Dr. Li Nagel URIC ACID 24 HR URINEon 06-22 Uric Acid, Urine 64.0 mg/dL Normal Not Estab. [facility] Comment on above: Performed By: #### A LPHPHN #### [facility] [address] [place] [address] Dr. Li Nagel Uric Acid, Urine 24hr 640.0 mg/24 hr Normal 173.7-902. 1 [facility] Comment on above: Performed By: #### A LPHPHN #### [facility] [address] [place] [address] Dr. Li Nagel CALCIUM 24 HR URINEon 2022 CALC, 24 HR UR 155.0 mg/24 hr Normal 100.0-300.0 [facility] Comment on above: Performed By: #### I MMUN G #### [facility] [address] [place] [address] Dr. Li Nagel UR CALCIUM 15.5 mg/dL Normal 5.1-21.0 [facility] Comment on above: Performed By: #### I MMUN G #### [facility] [address] [place] [address] Dr. Li Nagel UR TOT VOL 1000 ml/24 HR Normal [facility] Comment on above: Performed By: #### I MMUN G #### [facility] [address] [place] [address] Dr. Li Nagel Performed By: #### A LPHPHN #### [facility] [address] [place] [address] Dr. Li Nagel CREA 24 HR URINEon 3 CREA, 24 HR UR 1891.80 mg/24 hr Critically high 800.00 -1,800 .00 [facility] Comment on above: Performed By: #### A LPHPHN #### [facility] [address] [place] [address] Dr. Li Nagel URINE CREAT 189.18 mg/dL Normal 20.00-300.00 [facility] Comment on above: Performed By: #### A LPHPHN #### [facility] [address] [place] [address] Dr. Li Nagel PTH INTACTon 07-08-2022 PTH, Intact 41 pg/mL Normal 15-65 [facility] Comment on above: Performed By: #### H EPACUT #### [facility] [address] [place] [address] Dr. Li Nagel SODIUM 24 HR URINEon 023 NA, 24 HR UR 149 mmol/24 hr Normal 40-220 [facility] Comment on above: Performed By: #### A LPHPHN #### [facility] [address] [place] [address] Dr. Li Nagel Sodium (U) [Moles/Vol] 149 mmol/L Critically high 30-90 [facility] Comment on above: Performed By: #### A LPHPHN #### [facility] [address] [place] [address] Dr. Li Nagel BUNon 07-06-2022 Urea nitrogen [Mass/Vol] 11.0 mg/dL Normal 7.0-18.0 [facility] Comment on above: Performed By: #### B UN, URIC, CA, K, NA, CL, CO2, CREA #### [facility] [address] [place] [address] Dr. Li Nagel CALCIUMon 07-06-2022 Calcium [Mass/Vol] 9.0 mg/dL Normal 8.5-10.1 [facility] Comment on above: Performed By: #### B UN, URIC, CA, K, NA, CL, CO2, CREA #### [facility] [address] [place] [address] Dr. Li Nagel CHLORIDEon 07-06-2022 Chloride [Moles/Vol] 107 mmol/L Normal 98-107 [facility] Comment on above: Performed By: #### I MMUN G #### [facility] [address] [place] [address] Dr. Li Nagel CO2on 07-06-2022 CO2 [Moles/Vol] 29.2 mmol/L Normal 21.0-32.0 [facility] Comment on above: Performed By: #### I MMUN G #### [facility] [address] [place] [address] Dr. Li Nagel CREATININEon 07-06-2022 Creatinine [Mass/Vol] 0.97 mg/dL Normal 0.55-1.02 [facility] Comment on above: Performed By: #### B UN, URIC, CA, K, NA, CL, CO2, CREA #### [facility] [address] [place] [address] Dr. Li Nagel EGFR-AF [place] >60 Normal >=60 [facility] Comment on above: Performed By: #### B UN, URIC, CA, K, NA, CL, CO2, CREA #### [facility] [address] [place] [address] Dr. Li Nagel EGFR-NON AF [place] >60 Normal >=60 [facility] Comment on above: Performed By: #### B UN, URIC, CA, K, NA, CL, CO2, CREA #### [facility] [address] [place] [address] Dr. Li Nagel NAon 07-06-2022 Sodium [Moles/Vol] 143 mmol/L Normal 136-145 [facility] Comment on above: Performed By: #### I MMUN G #### [facility] [address] [place] [address] Dr. Li Nagel POTASSIUMon 07-06-2022 Potassium [Moles/Vol] 3.6 mmol/L Normal 3.5-5.1 [facility] Comment on above: Performed By: #### I MMUN G #### [facility] [address] [address] [address] Li Nagel URIC ACID SERUMon 07-06-2022 Urate [Mass/Vol] 4.7 mg/dL Normal 2.6-6.0 [facility] Comment on above: Performed By: #### B UN, URIC, CA, K, NA, CL, CO2, CREA #### [facility] [address] [place], [place] [address] Dr. Li Nagel SURGICAL PATHOLOGYOrdered By : Karan Nieto on 07-04-2022 Case Report Surgical Pathology Report Case: [id number] Authorizing Provider: Carol Winn MD Collected: 06/30/2022 11:43 AM Ordering Location: Ambulatory Surgery Received: 06/30/2022 10:42 PM Pathologist: Karan Nieto MD Specimens: A) - DUODENUM BIOPSY, r/o celiac B) - STOMACH BIOPSY, r/o H pylori [facility] Work Phone: Diagnosis Comment a7iwzTNpJBFbuVIlANRk N PajfsIlNWLlfSUmN6Dkce xbUEgeMB7bJD9hjQehxZQ cvJGgUNYzAiVtq1pmc325 bGIma2sdKONObkazfGe5i RjiP81sv2E4AfjrV21heQ CsUWB4REVgDXQqcPHgPFD jECW6EGJfcBGjR1rkAUIa OU9rxzjiXEbrYNnyHEDpl SO2MDAkbKJbL8NwMZTzSO bbPEVlpnk8RnSaJu1rlRB yeTcyMFxwYXJkXHBsYWlu WSWbIsXuFX2fDK0nhaYrj 2VkIGludHJhZXBpdGhlbG qncUEsgD8dbK8qtAWitzr uqX1upGpeNSAct1SiK4Hw c4LmqxlvmI78aoEcZw9mh c4dgCx7tOObHVZpMCnmTg Jqd0JoctEhkiAra6ZwT5u noPiadnB1rPJxMXShnJiy YyBkaXNlYXNlIGFuZCBvd MtzieAou09opVSgn64kME N3E7gvIHWflVEliGwcQII tx6Hns8EbDKogRyWdzPem qjUcgF5qyYGrcP2cWUusp Wfpc3EoJ5AfehRwyPfigr gmbV9qAVT5qF3qBKvmQC9 kIHNvbWUgbWVkaWNhdGlv tfWzMKJiiX6bG9FlOMJlz nNpkNQ8oR5lAPgqpQhtPG Wvlo4jwzbwnDVjm2Hey1n wV4bqAFM6aVXaRAUvuSMn HqUjG28qv2vaNEPwBPNjV mBgjQmrhXHfpKq1ZUzuTU mfSAAwGU9muDTfpS== [facility] Work Phone: FINAL DIAGNOSIS w3beuDTrDUXjaEObTUKs N MukipOoCINkjVJjE5Szie joLMedMQ3zFM2wcWbrtAF pnDXdUXLrOfBsn7wtq780 zFEeo7ksTCZXcsunxWj9s ZmmH79hc3H5FsaeM24qcF MxSTP8BBHyWTUdwQEqJHE fELU1IBZsuYAhZ3zzSOGo YL2nukztUAghNBxjEISef NH3JLBosTOtS1DrAOSwKW rfYORtalp9KcZiUf5ynQQ yeTcyMFxwYXJkXHBsYWlu OEMjLdPeAM9pEUBgXTAjf X7pLGVzn6HszOyprRCoWC 7bT00whNwekY70EFS7xC6 qxYFouXUwz9Dmt5s5oSSc j7AqZIzxmqhgfB13ozZvy jRlqUUeC6U4lsHoLM8yON usP9JmXUJmAIYxqaEbXVP waXRoZWxpYWwgbHltcGhv D1l3SZW5PZRzWKKcx52kF W69ZhdeIJZgjLPxIGFhJJ A3i99nA2fnHNUek0FehGg yiPAdYP9kL8XuuRUtEaRp kBymzKswOF68J62kAWC5l MFiSKUkvh7voXHgJAI0gR BnKZilzTsea0EcS7EgzsT taZmixrosRBXqb7BaGARo SMCtNBQ0kei1iOPvHQVyn n0= [facility] Work Phone: Gross Description h9wnfDApNSXgdCYKVVOy M OTbON0ugSanvHz9eWknYQ HncxG3fHZtTKinl0oeJBI 5x6cukxLWZoirPQMeZIxy GIIhmjiiCaX8NIpoBUXkl qjuUSl9FBfzNNCdnXG5RG AmtCHqR4PrMEJxFP5zuft 2RUC4CIvuMKTtUuK3ZTCs JpOiWkylXIv1FDWfktP9S rl5PMBkAYDpjOFcs0A9CI hwagvhGWQxnNCiE102SSw rf3DsyRNfVLpqdESnXPMD SodkZfiyeClzj6EphGKnM GlkIDUxMDAwIFxcbmggXF i1RTNpAMidqIZqNC5taNw uJdvgdRdza9AkiAVlSFhb BIWbKZYrDDxlQILtXQ9RJ uMhHEA8Afb5Sux8OyL6PB i6FBCBWwBmZjUxWdyjDAN 1ZATpFKb3ZCb2KJtPYbI4 FPWnXBzgUUNwGSE4QQa1A FxcdCAyIFxcZiBBcmlhbC ChJMFaQTwurqE2XWYyEFr dDSPyCQFFV0RFRqFIQXBH U0GJIXieFFBlUKajEHEpZ 21mp1DXx3WwOB1PRDh9fv EdlwtloO6gQHGeamQjPXo sqMTmX7nuHwVaJKQIRLEq qFBpNETgseEdj7CcGFcxj iBhcmUgbXVsdGlwbGUgcG aqI9VhMM1oWPHzcnjxt60 ilGF2wXEezFYjQZtfpcQa HDXdpwodkJ8kNQ80WVzoM A8nVWtbWU8mEWCpXiSRu9 XxjJl6TSM6Bb6noYTsNDU yblHanjYcP7Fqb1C7aNVa QKshCADdS00vx2LXb5HkK JGzk7njzGatd3FqgOGkSR aeLYRfqVMxZGixwG9tPiW ys3tcrIf2LMwpvyE1QLOf ru8bfFxatM3qVLj2EVrmQ GPxM5NaR5NkNDxkJKB2EA AwMiBcXGRiICBPVlIgIiA eNiN7VKE4PKYtTAv5DZrq M2WDXPBlTIU6FBi4NJg9S uZ6RKo5OWUTPy5oHRxwXj x6POZzIEZ1BAm7RZRePKK gMiBcXGYgQXJpYWwgXFxm eOWuBF3wiLhtsYDzsldvh qD6JNNxKFlpACIuBOHPW9 7TN5cbGruSOKOLDBKxrwS NClxlcGljTmVzdERvYzEg DQpcbHRycGFyXGxpbjBcc mluMCANClxsdHJjaFxmcz JkUVDyV2WjrbDoEXtfSVC xjf3tsBwyCWIgQGA5m55i mDctG6NlMV1aDVExsyxdf 02qoFQ4pSWxcKItOImuya XiVCPbqetaqE7xAN5yULt kBJ9sEEihJL0eMEDhNyGS t9OxvBx3KUE5Pl0trOFdE OOjjnCpusIkL4Ngr6S7qZ UuIFxwYXIgDQpccGFyIA0 XU7Nik0BxPBjyuBiuVNFg t37xdSQhTj9ktJJbQON9T ENsZXZlbGFuZCBDbGluaW OmNHz5LRBwQBJhxGqlBHE 3QZ7wGZGhXRTefULsCQmq N4rjVAMcTREblYAiKO0GL HBhciANCkpUIDAzLzEwLz IfSfRhIUo4EyGLWNutPBT pKWhvFEBbH73og6AKp1Kc ZVEtx2bwgObjb4JreHZsG ZssKLMlfDNyRHbfgG3sLw Jfh8gfiAb4OJqfkmF7RNR sam6vuOlcsC2iYXhxv7na BQM7OCKqoDIroPPlZAzku HxstM4gAsInWbg6AJxfIO KiZ1CrX4RorjW4IFUyEGj uXGZzMTYgDQp9 [facility] Work Phone: Performing Lab p5zaiLMfWNPqhQIkCvAw M AQuKDUkz5ozLLVyaIWmXj EwMzNcZnRuYmpcdWMxXGR oPeDns9xoa970xYPys7vd AZIyRaE5wEXsVURkaEQwW 922PWBuHGeam7vmo9VnNO NjbPVmq9A0KGVZquacmRo 0hFlvL04vu7U8WrapQ2rz QKZePARnG3XuXE0lFFSfZ pe5YVY5KLT2ZCEmKINkC9 TcJF2rSOTtbRWmTIy5j2x maYdsBIBjUWJ6w1rdIUkm tqPmSU6hzz1ewNb2d6edr zEgRGVmYXVsdCBQYXJhZ3 SlxAmvWp0mpHf9uYysOyc aZWO1Elw5ND9byk60vtm5 aBlfDCVuxvfrKlU7DAvfA BVdmopeNKj6LSnrUCUdyU V4KBHjvMGoB3NtTJbsSO5 nnfk9LMZ2LSgaCLCdGtT6 NDBcaGVhZGVyeTcyMFxmb 880DVQ0MoYeNL4uT5Xdt9 N1pT3nzDAlEPIduLYuZwP gIOXkpo2crHUvRNaxu0Fp WGY2leZ1hXZgvGXwFNFyL H46Btsta6TeYxkqr6MnG1 8tgST4RUsoo3gbKG8oVqQ 9qxBcPQusy3zbjS7vArZ3 AOnzQA2kVP9eWBNcyE2lo mxjXHBnYnJkcmhlYWRccG gibiHlGy2jnFnbAGC0VNj lB7xobK1oZdR4MFmcM3lf yQ4sJPw4SJatbDS4XORad E0qJQ5sspmat6qiCTycOZ kdBQIhxjR9gzLeWKVvlKY kY4FslU2hNVZyAS8wjany l3rhSEZ0CEucQDNzQGF4F rVeDHZmd4Ihqap1LlByt0 CvnEXaLXxfX68sa811JRE szvRxJ6jtbDUjdxbhnRUq vpfpNPgkjnG7DXWiGSHdG WluXGYxXGZzMjJcbGFuZz EwMzNcaGljaFxmMVxkYmN oUIWrFGjtW2krCyMuXiEv LsYTuLCbns1uxOmsMSdjy AEhsCMonFI9pD2oLDKnpp Ghrv4kJVIljAYKmQK3TQx pbwViV7rtilvpJZX0QNLq ZAA8O5lgUCYQvrQxSUEyV SWkjWTzTSFHJZL1XJI0YL LwBKKEGLTtKTP5GIU9NNL wOTRccGFyXHBhclxwYXJk XHBsYWluXGYwXGZzMjRcc XxucJ1iCnDdXsRlFcxbIP 2xVPLxJ6xtcWWtFJShCRO uE2giHcXbuK6cyMogPZch ZjJcZnMyMlxsdHJjaCBMY AFyppS9s8E2ITrfcVQxtg xmMVxmczIyXGxhbmcxMDM bEIsaT7deTzWmITQjoBeb ZIzbm5GdESGaQRLqSvBhN UkkWKK1c8V1MXiqcKEvyb QHWvBIPO8qrGXwuveoUD1 ELlxwYXJ9 [facility] Work Phone: [facility] Work Phone: EGD Study observation Narrat iveon 06-30-2022 [facility] Gastroenterology Gastrointestinal Endoscopy Patient Name: Orion Harper Procedure Date: 06/30/2022 11:41 AM Date of : 1990 Admit Type: Outpatient Age: 31 Room: [place] [id number] Gender: Female Note Status: Finalized Attending MD: [...] verified by the physician, the nurse, the machine builder and the aerospace physiological technician in the procedure room at 11:35 [...] gastric ulcers (more content not included)... [employer] Radiology Study observation (narrative) [facility] XR KUB 1 VIEWon 06-30-2022 XR [...] JACKSON ADKINS Date: 2022-06-30 07:02 Normal [facility] US ABD RT UPPER QUADRANTon 0 06-15-[address] [facility] [address] ABD/PEL WO IVCONon 2022 Radiology [facility] Ab[facility] No Panel Informationon 05-[address] [facility] [id number]-[id number] PHENOTYP INGon 05-11-2022 Zvryw-1-Rnngrrclnwj, Serum 130 mg/dL Normal 100-188 [facility] Comment on above: Result Comment: Perf ormed at: CB Performed By: #### A LPHN #### [facility] [address] [place] [address] Dr. Li Nagel Phenotype (PI) MM Normal [facility] Comment on above: Result Comment: Phen [...] BN Performed By: #### A LPHPHN #### [facility] [address] [place] [address] [address] [address] Li Nagel HEREDITARY HEMOCHROMATOSIS, DNA ANALYSISon 05-11-2022 Hereditary Hemochromatosis Comment Normal [facility] Comment on above: Result Comment: Resu lt: c.845G>A (p.Kaz685Sxs) - Not Detected c.187C>G (p.Dow67Ivl) - Not Detected c.193A>T (p.Qmb37Zau) - Not Detected Not associated with increased [...] for patients who are homozygous for c.845G>A (p.Wmf574Lmr) and have yet to experience clinical symptoms. . Comments: The most common HFE variants associated with hereditary hemochromatosis are c.845G>A (p.Tfx321Yqk), c.187C>G (p.Nyw55Fwp), c.193A>T (p.Zbk53Bix). While patients homozygous for c.845G>A (p.Mgp356Wxm) are the most likely to present clinical symptoms, less than 10% develop clinically significant iron overload with tissue and organ damage. . Genetic counseling is recommended to discuss the potential clinical implications of positive results, as well as recommendations for testing family members. Genetic Coordinators are available for health care providers to discuss results at [phone]). . Test Details: Three variants analyzed: c.845G>A (p.Hyt428Zrk), commonly referred to as C282Y c.187C>G (p.Msu33Ong), commonly referred to as H63D c.193A>T (p.Zcp50Qko), commonly referred to as S65C . Methods/Limitations: [...] developed and its performance characteristics determined by [employer]. It has not been cleared or approved by the Food and Drug Administration. . References: Brodie BR, Yoav PC, Deborah KV, Raymond LW, Ramsey ; [employer] [employer] Liver [employer]. Diagnosis and management of hemochromatosis: 2011 practice guideline by the [employer] [employer] Liver [employer]. Hepatology. 2011 Oct;54(1):328-43. doi: 10.1002/hep.29000. PMID: 64716176; PMCID: CMZ7328803. Cora G, Olegario P, Fabio DW, Tabatha H, Love O, Zev S, Vazquez I, Kofi M, Sunitha S. QN best practice guidelines for the molecular genetic diagnosis of hereditary hemochromatosis (HH). Eur J Hum Margaret. 2016 Jul;24(4):479-95. doi: 10.1038/ejhg.2015.128. Epub 2014Oct 29. PMID: 36859972; PMCID: RBT4372255. . Anitra Hager, PhD, FACMG Dm Reyna, PhD Alexandro Rodriguez, PhD, FACMG Jhony Hammond, PhD, FACMG Oumar Avila, PhD, FACMG Rob Brand, PhD, FACMG Pascale Gracia, PhD, FACMG Lala Marvin, PhD, FACMG Performed By: #### H EPACUT #### [facility] [address] [place] [address] Dr. Li Nagel DENY by IFAon 05-06-2022 Antinuclear Antibodies, IFA Negative Normal [facility] Comment on above: Result Comment: Nega tive <1:80 Borderline 1:80 Positive >1:80 ICAP nomenclature: AC-0 For more information about Hep-2 cell patterns use ANApatterns.org, the official website for the International Consensus on Antinuclear Antibody (DENY) Patterns (ICAP). Performed By: #### A LPHPHN #### [facility] [address] [address] [address] Li Nagel CERULOPLASMINon 05-05-2022 Ceruloplasmin 27.9 mg/dL Normal 19.0-39.0 [facility] Comment on above: Performed By: #### H EPACUT #### [facility] [address] [place] [address] Dr. Li Nagel HEPATITIS A AB IGMon 023 Hep A Ab, IgM Negative Normal Negative [facility] Comment on above: Performed By: #### I MMUN G #### [facility] [address] [address] [address] Li Naegl IMMUNOGLOBULIN G INDEX SERUM OR CSFon 05-05-2022 Albumin [Mass/Vol] 4.8 g/dL Normal 3.8-4.8 [facility] Comment on above: Performed By: #### I MMUN G #### [facility] [address] [place] [address] Dr. Li Nagel Albumin, CSF NSPINL Normal [facility] Comment on above: Result Comment: Test not performed. No spinal fluid received. contacted Radha at your facility on 05-05-2022 Performed By: #### I MMUN G #### [facility] [address] [place] [address] Dr. Li Nagel CSF IgG Index UPTCAL Normal [facility] Comment on above: Result Comment: Unab le to calculate result since non-numeric result obtained for component test. Performed By: #### I MMUN G #### [facility] [address] [place] [address] Dr. Li Nagel IgG, Quant, CSF NSPINL Normal [facility] Comment on above: Result Comment: Test not performed. No spinal fluid received. contacted Radha at your facility on 05-05-2022 Performed By: #### I MMUN G #### [facility] [address] [place] [address] Dr. Li Nagel IgG/Alb Ratio, CSF UPTCAL Normal [facility] Comment on above: Result Comment: Unab le to calculate result since non-numeric result obtained for component test. Performed By: #### I MMUN G #### [facility] [address] [place] [address] Dr. Li Nagel Immunoglobulin G, Qn, Serum 971 mg/dL Normal 586-1602 [facility] Comment on above: Performed By: #### I MMUN G #### [facility] [address] [place] [address] Dr. Li Nagel LIVER-KIDNEY MICROSOMAL (LKM ) ABon 05-05-2022 Liver-Kidney Microsomal Ab 1.3 Units Normal 0.0-20.0 [facility] Comment on above: Result Comment: Nega tive 0.0 - 20.0 Equivocal 20.1 - 24.9 Positive >24.9 . LKM type 1 antibodies are detected in patients with autoimmune hepatitis type 2 and in up to 8% of patients with chronic HCV infection. Performed By: #### H EPACUT #### [facility] [address] [place] [address] Dr. Li Nagel MITICHONDRIAL (M2) ANTIBODYo n 05-05-2022 Mitochondrial (M2) Antibody <20.0 Normal 0.0-20.0 [facility] Comment on above: Result Comment: Nega tive 0.0 - 20.0 Equivocal 20.1 - 24.9 Positive >24.9 . Mitochondrial (M2) Antibodies are found in 90-96% of patients with primary biliary cirrhosis. Performed By: #### A LPHPHN #### [facility] [address] [place] [address] Dr. Li Nagel SMOOTH MUSCLE ANTIBODYon Actin (Smooth Muscle) Antibody 9 Units Normal 0-19 [facility] Comment on above: Result Comment: Nega tive 0 - 19 Weak positive 20 - 30 Moderate to strong positive >30 . Actin Antibodies are found in 52-85% of patients with autoimmune hepatitis or chronic active hepatitis and in 22% of patients with primary biliary cirrhosis. Performed By: #### A LPHPHN #### [facility] [address] [place] [address] Dr. Li Nagel FERRITINon 05-03-2022 Ferritin [Mass/Vol] 319.0 ng/mL Critically high 6.2-137.0 [facility] Comment on above: Performed By: #### A LPHPHN #### [facility] [address] [address] [address] Li Nagel PAP ACOG PANEL 2: 30 to 65on 04-28-2022 . . Normal [facility] Comment on above: Result Comment: Perf ormed at: BA Performed By: #### I MMUN G #### [facility] [address] [address] [address] Li Nagel Age Gdln ACOG Testing 30-65 Normal [facility] Comment on above: Performed By: #### I MMUN G #### [facility] [address] [address] [address] Li Nagel DIAGNOSIS: Comment Normal [facility] Comment on above: Result Comment: NEGA TIVE FOR INTRAEPITHELIAL LESION OR MALIGNANCY. Performed at: BA Performed By: #### I MMUN G #### [facility] [address] [place] [address] Dr. Li Nagel HPV Aptima Negative Normal Negative [facility] Comment on above: Result Comment: This nucleic acid amplification test detects fourteen high-risk HPV types (16,18,31,33,35,39,45,51,52,56,58,59,66,68) without differentiation. Performed at: =G Performed By: #### I MMUN G #### [facility] [address] [place] [address] Dr. Li Nagel HPV Genotype Reflex Comment Normal [facility] Comment on above: Result Comment: Crit eria not met, HPV Genotype not performed. Performed at: BA Performed By: #### I MMUN G #### [facility] [address] [place] [address] Dr. Li Nagel Methodology: Comment Normal [facility] Comment on above: Result Comment: This liquid based ThinPrep(R) pap test was screened with the use of an image guided system. Performed at: WB Performed By: #### I MMUN G #### [facility] [address] [place] [address] Dr. Li Nagel Note: Comment Normal [facility] Comment on above: Result [...] Performed By: #### I MMUN G #### [facility] [address] [address] [address] Li Nagel Performed by: Comment Normal [facility] Comment on above: Result Comment: Gretta Holly Solution Analyst (ASCP) Performed at: BA Performed By: #### I MMUN G #### [facility] [address] [address] [address] Li Nagel Specimen adequacy: Comment Normal [facility] Comment on above: Result Comment: Sati sfactory for evaluation. No endocervical component is identified. Performed at: BA Performed By: #### I MMUN G #### [facility] [address] [place] [address] Dr. Li Nagel HEPATITIS PANEL, [facility] HBsAg Screen Negative Normal Negative [facility] Comment on above: Performed By: #### H EPACUT #### [facility] [address] [address] [address] Li Nagel HCV AB <0.1 Normal 0.0-0.9 [facility] Comment on above: Performed By: #### H EPACUT #### [facility] [address] [place] [address] Dr. Li Nagel Hep A Ab, IgM Negative Normal Negative [facility] Comment on above: Performed By: #### H EPACUT #### [facility] [address] [address] [address] Li Nagel Hep B Core Ab, IgM Negative Normal Negative [facility] Comment on above: Performed By: #### H EPACUT #### [facility] [address] [place] [address] Dr. Li Nagel Interpretation: Comment Normal [facility] Comment on above: Result Comment: Nega tive Not infected with HCV, unless recent infection is suspected or other evidence exists to indicate HCV infection. Performed By: #### H EPACUT #### [facility] [address] [address] [address] Li Nagel US PELVIS AND TRANSVAGon [...] LAURIE CRUZ Date: 2021-12-22 09:50 Normal [facility] US ABD RT UPPER QUADRANTon 0 12-10-[address] [facility] US PELVIS AND TRANSVAGon US PELVIS [...] LAURIE CRUZ Date: 2021-10-28 13:01 Normal [facility] VAGINITIS/VAGINOSIS DNA PROB Maki 10-21-2021 Sharif species Negative Normal Negative [facility] Comment on above: Performed By: #### I MMUN G #### [facility] [address] [place] [address] Dr. Li Nagel Gardnerella vaginalis Negative Normal Negative [facility] Comment on above: Performed By: #### I MMUN G #### [facility] [address] [place] [address] Dr. Li Nagel Trichomonas vaginalis Negative Normal Negative [facility] Comment on above: Performed By: #### I MMUN G #### [facility] [address] [place] [address] Dr. Li Nagel CBC AUTO DIFFon 10-20-2021 BASO # 0.0 103/ul Normal 0.0-0.1 [facility] Comment on above: Performed By: #### A LPHPHN #### [facility] [address] [place] [address] Dr. Li Nagel Basophils/100 WBC (Bld) 0.4 % Normal 0.2-2.0 [facility] Comment on above: Performed By: #### A LPHPHN #### [facility] [address] [place] [address] Dr. Li Nagel EO # 0.2 103/ul Normal 0.0-0.7 [facility] Comment on above: Performed By: #### A LPHPHN #### [facility] [address] [place] [address] Dr. Li Nagel Eosinophils/100 WBC (Bld) 2.6 % Normal 0.9-7.0 [facility] Comment on above: Performed By: #### A LPHPHN #### [facility] [address] [place] [address] Dr. Li Nagel Erythrocyte distribution width (RBC) [Ratio] 12.6 % Normal 11.0-15.0 [facility] Comment on above: Performed By: #### A LPHPHN #### [facility] [address] [place] [address] Dr. Li Nagel Hematocrit (Bld) [Volume fraction] 40.0 % Normal 36.0-48.0 [facility] Comment on above: Performed By: #### A LPHPHN #### [facility] [address] [place] [address] Dr. Li Nagel Hemoglobin (Bld) [Mass/Vol] 13.3 g/dL Normal 12.0-16.0 [facility] Comment on above: Performed By: #### A LPHPHN #### [facility] [address] [place] [address] Dr. Li Nagel IG # 0.06 10e3/ul Critically high 0.00-0.03 [facility] Comment on above: Performed By: #### A LPHPHN #### [facility] [address] [place] [address] Dr. Li Nagel IG % 0.9 % Critically high 0.0-0.5 [facility] Comment on above: Performed By: #### A LPHPHN #### [facility] [address] [place] [address] Dr. Li Nagel LYMPH # 2.2 103/ul Normal 1.2-3.8 [facility] Comment on above: Performed By: #### A LPHPHN #### [facility] [address] [place] [address] Dr. Li Nagel Lymphocytes/100 WBC (Bld) 31.0 % Normal 20.5-60.0 [facility] Comment on above: Performed By: #### A LPHPHN #### [facility] [address] [place] [address] Dr. Li Nagel MANUAL DIFF REQ NO Normal [facility] Comment on above: Performed By: #### A LPHPHN #### [facility] [address] [place] [address] Dr. Li Nagel MCH (RBC) [Entitic mass] 31.4 pg Normal 26.7-34.0 [facility] Comment on above: Performed By: #### A LPHPHN #### [facility] [address] [place] [address] Dr. Li Nagel MCHC (RBC) [Mass/Vol] 33.3 g/dL Normal 29.9-35.2 [facility] Comment on above: Performed By: #### A LPHPHN #### [facility] [address] [place] [address] Dr. Li Nagel MCV (RBC) [Entitic vol] 94.3 fL Normal 81.0-99.0 [facility] Comment on above: Performed By: #### A LPHPHN #### [facility] [address] [place] [address] Dr. Li Nagel MONO # 0.5 103/ul Normal 0.3-0.8 [facility] Comment on above: Performed By: #### A LPHPHN #### [facility] [address] [place] [address] Dr. Li Nagel Monocytes/100 WBC (Bld) 6.9 % Normal 1.7-12.0 [facility] Comment on above: Performed By: #### A LPHPHN #### [facility] [address] [place] [address] Dr. Li Nagel NEUT # 4.1 103/ul Normal 1.4-6.5 [facility] Comment on above: Performed By: #### A LPHPHN #### [facility] [address] [place] [address] Dr. Li Nagel Neutrophils/100 WBC (Bld) 58.2 % Normal 43.0-75.0 [facility] Comment on above: Performed By: #### A LPHPHN #### [facility] [address] [place] [address] Dr. Li Nagel Platelet mean volume (Bld) [Entitic vol] 11.0 fL Normal 9.5-13.5 [facility] Comment on above: Performed By: #### A LPHPHN #### [facility] [address] [place] [address] Dr. Li Nagel PLT 211 103/ul Normal 150-450 [facility] Comment on above: Performed By: #### A LPHPHN #### [facility] [address] [address] [address] Li Nagel RBC 4.24 106/ul Normal 4.20-5.40 [facility] Comment on above: Performed By: #### A LPHPHN #### [facility] [address] [address] [address] Li Nagel WBC 7.0 103/ul Normal 4.0-11.0 [facility] Comment on above: Performed By: #### A LPHPHN #### [facility] [address] [address] [address] ABD/PELV W CONon [...] DOLORES MOON Date: 2021-10-20 14:53 Normal [facility] OCC BLD IMMUNO SCREENon 09-23 OCCULT BLOOD Negative Normal NEGATIVE [facility] Comment on above: Performed By: #### O BSCRN #### [facility] [address] [address] [address] Li Nagel PROF 14(COMP METB)on 022 Albumin [Mass/Vol] 3.7 g/dL Normal 3.4-5.0 [facility] Comment on above: Performed By: #### A LPHPHN #### [facility] [address] [place] [address] Dr. Li Nagel Albumin/Globulin [Mass ratio] 1.2 {ratio} Normal [facility] Comment on above: Performed By: #### A LPHPHN #### [facility] [address] [place] [address] Dr. Li Nagel ALP [Catalytic activity/Vol] 86 U/L Normal 46-116 [facility] Comment on above: Performed By: #### A LPHPHN #### [facility] [address] [place] [address] Dr. Li Nagel ALT [Catalytic activity/Vol] 109 U/L Critically high 14-59 [facility] Comment on above: Performed By: #### A LPHPHN #### [facility] [address] [place] [address] Dr. Li Nagel Anion gap [Moles/Vol] 7.8 mmol/L Normal [facility] Comment on above: Performed By: #### A LPHPHN #### [facility] [address] [place] [address] Dr. Li Nagel AST [Catalytic activity/Vol] 57 U/L Critically high 15-37 [facility] Comment on above: Performed By: #### A LPHPHN #### [facility] [address] [place] [address] Dr. Li Nagel Bilirubin [Mass/Vol] 0.4 mg/dL Normal 0.2-1.0 [facility] Comment on above: Performed By: #### A LPHPHN #### [facility] [address] [place] [address] Dr. Li Nagel Calcium [Mass/Vol] 8.9 mg/dL Normal 8.5-10.1 [facility] Comment on above: Performed By: #### A LPHPHN #### [facility] [address] [place] [address] Dr. Li Nagel Chloride [Moles/Vol] 104 mmol/L Normal 98-107 [facility] Comment on above: Performed By: #### A LPHPHN #### [facility] [address] [place] [address] Dr. Li Nagel CO2 [Moles/Vol] 27.7 mmol/L Normal 21.0-32.0 [facility] Comment on above: Performed By: #### A LPHPHN #### [facility] [address] [place] [address] Dr. Li Nagel Creatinine [Mass/Vol] 0.78 mg/dL Normal 0.55-1.02 [facility] Comment on above: Performed By: #### A LPHPHN #### [facility] [address] [place] [address] Dr. Li Nagel EGFR-AF [place] >60 Normal >=60 [facility] Comment on above: Performed By: #### A LPHPHN #### [facility] [address] [place] [address] Dr. Li Nagel EGFR-NON AF [place] >60 Normal >=60 [facility] Comment on above: Performed By: #### A LPHPHN #### [facility] [address] [place] [address] Dr. Li Nagel Globulin (S) [Mass/Vol] 3.2 g/dL Normal [facility] Comment on above: Performed By: #### A LPHPHN #### [facility] [address] [place] [address] Dr. Li Nagel Glucose [Mass/Vol] 104 mg/dL Normal 74-106 [facility] Comment on above: Performed By: #### A LPHPHN #### [facility] [address] [place] [address] Dr. Li Nagel Potassium [Moles/Vol] 3.5 mmol/L Normal 3.5-5.1 [facility] Comment on above: Performed By: #### A LPHPHN #### [facility] [address] [address] [address] Li Nagel Protein [Mass/Vol] 6.9 g/dL Normal 6.4-8.2 [facility] Comment on above: Performed By: #### A LPHPHN #### [facility] [address] [place] [address] Dr. Li Nagel Sodium [Moles/Vol] 136 mmol/L Normal 136-145 [facility] Comment on above: Performed By: #### A LPHPHN #### [facility] [address] [place] [address] Dr. Li Nagel Urea nitrogen [Mass/Vol] 10.0 mg/dL Normal 7.0-18.0 [facility] Comment on above: Performed By: #### A LPHPHN #### [facility] [address] [place] [address] Dr. Li Nagel Urea nitrogen/Creatinine [Mass ratio] 12.8 mg/mg Normal [facility] Comment on above: Performed By: #### A LPHPHN #### [facility] [address] [place] [address] Dr. Li Nagel XR LSPINE MIN 4 [...] by: LAURIE CRUZ Date: 2021-09-06 15:05 Normal [facility] NM HEPATOBILIARY SCAN W EFon [...] JACKSON ADKINS Date: 2021-08-27 16:05 Normal [facility] Metabolic Pane yair 08-20-2021 Albumin [Mass/Vol] 5.0 g/dL Normal 3.6-5.1 [facility] [employer] Comment on above: Performed By: #### C MP #### [facility] [address] [place], [place] [id number] Albumin/Globulin [Mass ratio] 2.1 {ratio} Normal 1.0-2.5 [facility] Comment on above: Performed By: #### C MP #### [facility] [address] [place], [place] [id number] ALP [Catalytic activity/Vol] 110 U/L Normal 35-119 [facility] Comment on above: Performed By: #### C MP #### [facility] [address] [place], [place] [id number] ALT [Catalytic activity/Vol] 71 U/L High 6-33 [facility] Comment on above: Result Comment: 03/24 Female reference range changed. Performed By: #### C MP #### [facility] [address] [place], [place] [id number] Anion gap [Moles/Vol] 17 mmol/L Normal 12-20 [facility] Comment on above: Result Comment: Effe ctive 04/29/2019 reference range changed. Performed By: #### C MP #### [facility] [address] [place], [place] [id number] AST [Catalytic activity/Vol] 69 U/L High 9-34 [facility] Comment on above: Performed By: #### C MP #### [facility] [address] [place], [place] [id number] BUN/CREA 11 Ratio Normal 6-22 [facility] Comment on above: Performed By: #### C MP #### [facility] [address] [place], [place] [id number] Calcium [Mass/Vol] 9.8 mg/dL Normal 8.6-10.2 [facility] Comment on above: Performed By: #### C MP #### [facility] [address] [place], [place] [id number] Chloride [Moles/Vol] 99 mmol/L Normal 98-107 [facility] Comment on above: Performed By: #### C MP #### [facility] [address] [place], [place] [id number] CO2 [Moles/Vol] 25 mmol/L Normal 20-31 [facility] Comment on above: Performed By: #### C MP #### [facility] [address] [place], [place] [id number] Creatinine [Mass/Vol] 0.9 mg/dL Normal 0.6-1.4 [facility] Comment on above: Performed By: #### C MP #### [facility] [address] [place], [place] [id number] eGFRAA 94 mL/min/1.73m2 Normal >60 [facility] Comment on above: Performed By: #### C MP #### [facility] [address] [place], [place] [id number] eGFRNAA 78 mL/min/1.73m2 Normal >60 [facility] Comment on above: Performed By: #### C MP #### [facility] [address] [place], [place] [id number] Globulin (S) [Mass/Vol] 2.4 g/dL Normal 1.9-3.7 [facility] Comment on above: Performed By: #### C MP #### [facility] [address] [place], [place] [id number] Glucose [Mass/Vol] 100 mg/dL High 65-99 [facility] [place] [employer] Comment on above: Result Comment: For FASTING Glucose --- ADA reference ranges: Normal 65-99 mg/dl Prediabetes 100-125 Diabetes >/= 126 Performed By: #### C MP #### [facility] [address] [place], [place] [id number] Potassium [Moles/Vol] 3.8 mmol/L Normal 3.5-5.5 [facility] Comment on above: Performed By: #### C MP #### [facility] [address] [place], [place] [id number] Protein [Mass/Vol] 7.4 g/dL Normal 6.1-8.1 [facility] Comment on above: Performed By: #### C MP #### [facility] [address] [place], [place] [id number] Sodium [Moles/Vol] 137 mmol/L Normal 135-146 [employer] [place] [employer] Comment on above: Performed By: #### C MP #### [facility] [address] [place], [place] [id number] TBIL <0.3 Normal [facility] Comment on above: Performed By: #### C MP #### [facility] [address] [place], [place] [id number] Urea nitrogen [Mass/Vol] 10 mg/dL Normal 7-25 [facility] Comment on above: Performed By: #### C MP #### [facility] [address] [place], [place] [id number] US SINGLE QUAD RT UPPERon US SINGLE [...] JACKSON ADKINS Date: 2021-08-16 08:19 Normal [facility] Complete Blood Count with Au to Diffon 08-06-2021 Basophils (Bld) [#/Vol] 0.03 10*3/uL Normal 0.00-0.20 [facility] Pipe [employer] Worker Comment on above: Performed By: #### C MP, CBCAD, LIPD #### [facility] [address] [place], [place] [id number] Basophils/100 WBC (Bld) 0.4 % Normal [facility] Comment on above: Performed By: #### C MP, CBCAD, LIPD #### [facility] [address] [place], [place] [id number] Eosinophils (Bld) [#/Vol] 0.11 10*3/uL Normal 0.02-0.50 [facility] Comment on above: Performed By: #### C MP, CBCAD, LIPD #### [facility] [address] [place], [place] [id number] Eosinophils/100 WBC (Bld) 1.4 % Normal [facility] Comment on above: Performed By: #### C MP, CBCAD, LIPD #### [facility] [address] [place], [place] [id number] Erythrocyte distribution width (RBC) [Ratio] 12.6 % Normal 11.0-15.0 [facility] Comment on above: Performed By: #### C MP, CBCAD, LIPD #### [facility] [address] [place], [place] [id number] Hematocrit (Bld) [Volume fraction] 44.2 % Normal 35.0-47.0 [facility] Comment on above: Performed By: #### C MP, CBCAD, LIPD #### [facility] [address] [place], [place] [id number] Hemoglobin (Bld) [Mass/Vol] 14.8 g/dL Normal 11.6-15.5 [facility] Comment on above: Performed By: #### C MP, CBCAD, LIPD #### [facility] [address] [place], [place] [id number] Lymphocytes (Bld) [#/Vol] 2.2 10*3/uL Normal 0.9-3.9 [facility] Comment on above: Performed By: #### C MP, CBCAD, LIPD #### [facility] [address] [place], [place] [id number] Lymphocytes/100 WBC (Bld) 28.1 % Normal [facility] Comment on above: Performed By: #### C MP, CBCAD, LIPD #### [facility] [address] [place], [place] [id number] MCH (RBC) [Entitic mass] 31.2 pg Normal 27.0-33.0 [facility] Comment on above: Performed By: #### C MP, CBCAD, LIPD #### [facility] [address] [place], [place] [id number] MCHC (RBC) [Mass/Vol] 33.5 g/dL Normal 32.0-36.0 [facility] Comment on above: Performed By: #### C MP, CBCAD, LIPD #### [facility] [address] [place], [place] [id number] MCV (RBC) [Entitic vol] 93 fL Normal 80-100 [facility] Comment on above: Performed By: #### C MP, CBCAD, LIPD #### [facility] [address] [place], [place] [id number] Monocytes (Bld) [#/Vol] 0.4 10*3/uL Normal 0.2-0.9 [facility] Comment on above: Performed By: #### C MP, CBCAD, LIPD #### [facility] [address] [place], [place] [id number] Monocytes/100 WBC (Bld) 4.8 % Normal [facility] Comment on above: Performed By: #### C MP, CBCAD, LIPD #### [facility] [address] [place], [place] [id number] Neutrophils (Bld) [#/Vol] 5.1 10*3/uL Normal 1.5-7.8 [facility] Comment on above: Performed By: #### C MP, CBCAD, LIPD #### [facility] [address] [place], [place] [id number] Neutrophils/100 WBC (Bld) 64.3 % Normal [facility] Comment on above: Performed By: #### C MP, CBCAD, LIPD #### [facility] [address] [place], [place] [id number] Platelet mean volume (Bld) [Entitic vol] 11.00 fL Normal 7.50-12.50 [facility] Comment on above: Performed By: #### C MP, CBCAD, LIPD #### [facility] [address] [place], [place] [id number] Platelets (Bld) [#/Vol] 296 10*3/uL Normal 140-400 [facility] Comment on above: Performed By: #### C MP, CBCAD, LIPD #### [facility] [address] [place], [place] [id number] RBC (Bld) [#/Vol] 4.74 10*6/uL Normal 3.90-5.20 [facility] Pipe [employer] Worker Comment on above: Performed By: #### C MP, CBCAD, LIPD #### [facility] [address] [place], [place] [id number] RDW-SD 43.4 fL Normal 37.0-50.0 [facility] Comment on above: Performed By: #### C MP, CBCAD, LIPD #### [facility] [address] [place], [place] [id number] WBC (Bld) [#/Vol] 8.0 10*3/uL Normal 3.8-11.0 [facility] [employer] Worker Comment on above: Performed By: #### C MP, CBCAD, LIPD #### [facility] [address] [place], [place] [id number] Comprehensive Metabolic Pane yair 08-06-2021 Albumin [Mass/Vol] 5.2 g/dL High 3.6-5.1 [facility] [employer] Worker Comment on above: Performed By: #### C MP, CBCAD, LIPD #### [facility] [address] [facility] [place] [place] [id number] Albumin/Globulin [Mass ratio] 2.1 {ratio} Normal 1.0-2.5 [facility] Comment on above: Performed By: #### C MP, CBCAD, LIPD #### [facility] [address] [facility] [place] [id number] ALP [Catalytic activity/Vol] 115 U/L Normal 35-119 [facility] Comment on above: Performed By: #### C MP, CBCAD, LIPD #### [facility] [address] [facility] [place] [id number] ALT [Catalytic activity/Vol] 101 U/L High 6-33 [facility] Comment on above: Result Comment: 03/24 Female reference range changed. Performed By: #### C MP, CBCAD, LIPD #### [facility] [address] [place], [place] [id number] Anion gap [Moles/Vol] 20 mmol/L Normal 12-20 [facility] Comment on above: Result Comment: Effe ctive 04/29/2019 reference range changed. Performed By: #### C MP, CBCAD, LIPD #### [facility] [address] [facility] [place] [id number] AST [Catalytic activity/Vol] 96 U/L High 9-34 [facility] Comment on above: Performed By: #### C MP, CBCAD, LIPD #### [facility] [address] [facility] [place] [id number] BUN/CREA 9 Ratio Normal 6-22 [facility] Comment on above: Performed By: #### C MP, CBCAD, LIPD #### [facility] [address] [facility] [place] [id number] Calcium [Mass/Vol] 9.9 mg/dL Normal 8.6-10.2 [facility] Comment on above: Performed By: #### C MP, CBCAD, LIPD #### [facility] [address] [facility] [place] [id number] Chloride [Moles/Vol] 106 mmol/L Normal 98-107 [facility] Comment on above: Performed By: #### C MP, CBCAD, LIPD #### [facility] [address] [place], [place] [id number] CO2 [Moles/Vol] 21 mmol/L Normal 20-31 [facility] Comment on above: Performed By: #### C MP, CBCAD, LIPD #### [facility] [address] [place], [place] [id number] Creatinine [Mass/Vol] 0.9 mg/dL Normal 0.6-1.4 [facility] Comment on above: Performed By: #### C MP, CBCAD, LIPD #### [facility] [address] [place], [place] [id number] eGFRAA 90 mL/min/1.73m2 Normal >60 [facility] Comment on above: Performed By: #### C MP, CBCAD, LIPD #### [facility] [address] [place], [place] [id number] eGFRNAA 74 mL/min/1.73m2 Normal >60 [facility] Comment on above: Performed By: #### C MP, CBCAD, LIPD #### [facility] [address] [place], [place] [id number] Globulin (S) [Mass/Vol] 2.5 g/dL Normal 1.9-3.7 [facility] Comment on above: Performed By: #### C MP, CBCAD, LIPD #### [facility] [address] [place], [place] [id number] Glucose [Mass/Vol] 127 mg/dL High 65-99 [facility] Comment on above: Result Comment: For FASTING Glucose --- ADA reference ranges: Normal 65-99 mg/dl Prediabetes 100-125 Diabetes >/= 126 Performed By: #### C MP, CBCAD, LIPD #### [facility] [address] [place], [place] [id number] Potassium [Moles/Vol] 4.2 mmol/L Normal 3.5-5.5 [facility] Comment on above: Performed By: #### C MP, CBCAD, LIPD #### [facility] [address] [place], [place] [id number] Protein [Mass/Vol] 7.7 g/dL Normal 6.1-8.1 [facility] Comment on above: Performed By: #### C MP, CBCAD, LIPD #### [facility] [address] [place], [place] [id number] Sodium [Moles/Vol] 143 mmol/L Normal 135-146 [facility] Comment on above: Performed By: #### C MP, CBCAD, LIPD #### [facility] [address] [place], [place] [id number] TBIL <0.3 Normal [facility] Comment on above: Performed By: #### C MP, CBCAD, LIPD #### [facility] [address] [place], [place] [id number] Urea nitrogen [Mass/Vol] 8 mg/dL Normal 7-25 [facility] Pipe Assembly Worker Comment on above: Performed By: #### C MP, CBCAD, LIPD #### [facility] [address] [place], [place] [id number] Hemoglobin A1Con 08-06-2021 EAG 99.67 Normal [facility] Comment on above: Performed By: #### A 1C #### [facility] [address] [place], [place] [id number] HbA1c (Bld) [Mass fraction] 5.1 % Normal 4.0-6.0 [facility] Comment on above: Performed By: #### A 1C #### [facility] [address] [place], [place] [id number] Lipid Panelon 08-06-2021 Cholesterol [Mass/Vol] 190 mg/dL Normal 125-200 [facility]: Result Comment: Low risk < 200mg/dL Borderline risk 201-239 mg/dl High risk > or equal to 240 Performed By: #### C MP, CBCAD, LIPD #### [facility] [address] [place], [place] [id number] Cholesterol in HDL [Mass/Vol] 64 mg/dL Normal >40 [facility] Pipe [employer] Worker Comment on above: Result Comment: High Cardiovascular Risk HDL <40 mg/dL Low Cardiovascular Risk HDL > or equal to 60 mg/dl Performed By: #### C MP, CBCAD, LIPD #### [facility] [address] [place], [place] [id number] Cholesterol in LDL [Mass/Vol] 107 mg/dL Normal [facility] Pipe [employer] Worker Comment on above: Result Comment: LDL ATP III CLASSIFICATION LDL less than 100 mg/dl Optimal LDL 100-129 mg/dl Near or above optimal LDL 130-159 Borderline high LDL 160-189 High LDL greater than 189 mg/dl Very High Performed By: #### C MP, CBCAD, LIPD #### [facility] [address] [place], [place] [id number] Cholesterol in VLDL [Mass/Vol] 19 mg/dL Normal [facility] Comment on above: Performed By: #### C MP, CBCAD, LIPD #### [facility] [address] [place], [place] [id number] Cholesterol.total/Chol esterol in HDL [Mass ratio] 3 {ratio} Normal [facility] Comment on above: Performed By: #### C MP, CBCAD, LIPD #### [facility] [address] [place], [place] [id number] Triglyceride [Mass/Vol] 95 mg/dL Normal 30-150 [facility] Pipe [employer] Worker Comment on above: Result Comment: TRIG ATPIII CLASSIFICATIONS TRIG less than 150 mg/dl Normal TRIG 150-199 mg/dl Borderline High TRIG 200-500 mg/dl High TRIG greather than 500 mg/dl Very High Performed By: #### C MP, CBCAD, LIPD #### [facility] [address] [place], [place] [id number] Q - CULTURE,URINE,ROUTINEon 06-04-2021 CULTURE, URINE, ROUTINE SEE NOTE Normal [facility] Comment on above: Order Comment: [facility] performed at: [facility] [employer] [facility], [facility], [address] [place] [address], [address] [place] [address], [id number], [employer]: Tim Dotson MD [facility] Collection Date/Time: [facility] Results Received Date/Time: [facility] Reported Date/Time: Result Comment: CULT URE, URINE, ROUTINE Micro Number: [id number] Test Status: Final Specimen Source: Not given Specimen Quality: Adequate Result: Mixed genital marie isolated. These superficial bacteria are not indicative of a urinary tract infection. No further organism identification is warranted on this specimen. If clinically indicated, recollect clean-catch, mid-stream urine and transfer immediately to Urine Culture Transport Tube. Performed By: #### [id number] #### [facility] Default [address] [place] [address] MRI LUMBAR SPINE WO CONTRAST on 11-06-2018 [...] Naren Lagos MD 11/06/18 Final result Normal [facility] Vital Signs Date Time Vital Sign Value Performing Clinician Facility 07-04-2024 15:30-0400 Body height 157.5 cm Giovani Hagen MD Work Phone: [facility] 07-04-2024 15:30-0400 Body mass index (BMI) [Ratio] 34.75 kg/m2 Giovani Hagen MD Work Phone: [facility] 07-04-2024 15:30-0400 Body weight 86.18 kg Giovani Hagen MD Work Phone: [facility] 07-04-2024 15:30-0400 Diastolic blood pressure 88 mm[Hg] Giovani Hagen MD Work Phone: [facility] 07-04-2024 15:30-0400 Heart rate 109 /min Giovani Hagen MD Work Phone: [facility] 07-04-2024 15:30-0400 SaO2% (BldA) [Mass fraction] 98 % Giovani Hagen MD Work Phone: [facility] 07-04-2024 15:30-0400 Systolic blood pressure 132 mm[Hg] Giovani Hagen MD Work Phone: [facility] 07-03-2024 14:55-0400 Body height 157.5 cm Milton Dolce DPM FACFAS Work Phone: [facility] 07-03-2024 14:55-0400 Body mass index (BMI) [Ratio] 34.93 kg/m2 Milton Dolce DPM FACFAS Work Phone: [facility] 07-03-2024 14:55-0400 Body weight 86.64 kg Milton Dolce DPM FACFAS Work Phone: [facility] 07-03-2024 14:55-0400 Diastolic blood pressure 79 mm[Hg] Milton Dolce DPM FACFAS Work Phone: [facility] 07-03-2024 14:55-0400 Heart rate 88 /min Milton Dolce DPM FACFAS Work Phone: [facility] 07-03-2024 14:55-0400 Systolic blood pressure 132 mm[Hg] Milton Dolce DPM FACFAS Work Phone: [facility] 06-26-2024 15:00-0500 Body height 157.5 cm Milton Dolce DPM FACFAS Work Phone: [facility] 06-26-2024 15:00-0500 Body mass index (BMI) [Ratio] 34.93 kg/m2 Milton Dolce DPM FACFAS Work Phone: [facility] 06-26-2024 15:00-0500 Body weight 86.64 kg Milton Fraire DPM FACFAS Work Phone: [facility] 06-26-2024 15:00-0500 Diastolic blood pressure 79 mm[Hg] Milton Fraire DPM FACFAS Work Phone: [facility] 06-26-2024 15:00-0500 Heart rate 88 /min Milton Fraire DPM FACFAS Work Phone: [facility] 06-26-2024 15:00-0500 Systolic blood pressure 132 mm[Hg] Milton Fraire DPM FACFAS Work Phone: [facility] 06-25-2024 14:38-0500 Body mass index (BMI) [Ratio] 34.9 kg/m2 Darwin Matty DO Work Phone: [facility] 06-25-2024 14:38-0500 Body weight 86.55 kg Darwin Matty DO Work Phone: [facility] 06-25-2024 14:38-0500 Diastolic blood pressure 78 mm[Hg] Drawin Matty DO Work Phone: [facility] 06-25-2024 14:38-0500 Systolic blood pressure 130 mm[Hg] Darwin Matty DO Work Phone: [facility] 06-19-2024 14:37-0500 Body height 157.5 cm Prateek Pedraza DPM Work Phone: [facility] 06-19-2024 14:37-0500 Body mass index (BMI) [Ratio] 35.85 kg/m2 Prateek Brown DPM Work Phone: [facility] 06-19-2024 14:37-0500 Body weight 88.91 kg Prateek Brown DPM Work Phone: [facility] 06-19-2024 14:37-0500 Respiratory rate 18 /min Prateek Pedraza DPM Work Phone: [facility] 02-13-2025 15:42-0500 Body height 157.5 cm Giovani Hagen MD Work Phone: [facility] 06-06-2024 15:42-0500 Body mass index (BMI) [Ratio] 35.85 kg/m2 Giovani Hagen MD Work Phone: [facility] 06-06-2024 15:42-0500 Body weight 88.91 kg Giovani Hagen MD Work Phone: [facility] 06-06-2024 15:42-0500 Diastolic blood pressure 82 mm[Hg] Giovani Hagen MD Work Phone: [facility] 06-06-2024 15:42-0500 Heart rate 96 /min Giovani Hagen MD Work Phone: [facility] 06-06-2024 15:42-0500 SaO2% (BldA) [Mass fraction] 99 % Giovani Hagen MD Work Phone: [facility] 06-06-2024 15:42-0500 Systolic blood pressure 118 mm[Hg] Giovani Hagen MD Work Phone: [facility] 05-29-2024 13:49-0500 Body mass index (BMI) [Ratio] 35.81 kg/m2 Ayleen JUSTICE Work Phone: [facility] 05-29-2024 13:49-0500 Body weight 88.81 kg Ayleen JUSTICE Work Phone: [facility] 05-29-2024 13:49-0500 Diastolic blood pressure 76 mm[Hg] Ayleen JUSTICE Work Phone: [facility] 05-29-2024 13:49-0500 Systolic blood pressure 122 mm[Hg] Ayleen JUSTICE Work Phone: [facility] 05-22-2024 14:30-0500 Diastolic blood pressure 92 mm[Hg] Carol Winn MD Work Phone: [facility] 05-22-2024 14:30-0500 Heart rate 102 /min Carol Winn MD Work Phone: [facility] 05-22-2024 14:30-0500 Respiratory rate 21 /min Carol Winn MD Work Phone: [facility] 05-22-2024 14:30-0500 SaO2% (BldA) [Mass fraction] 100 % Carol Winn MD Work Phone: [facility] 05-22-2024 14:30-0500 Systolic blood pressure 133 mm[Hg] Carol Winn MD Work Phone: [facility] 05-22-2024 13:40-0500 Body height 157.5 cm Carol Winn MD Work Phone: [facility] 05-22-2024 13:40-0500 Body mass index (BMI) [Ratio] 33.84 kg/m2 Carol Winn MD Work Phone: [facility] 05-22-2024 13:40-0500 Body weight 83.92 kg Carol Winn MD Work Phone: [facility] 05-15-2024 08:50-0500 Body height 157.5 cm Milton Fraire DPM FACFAS Work Phone: [facility] 05-15-2024 08:50-0500 Body mass index (BMI) [Ratio] 36.21 kg/m2 Milton Fraire DPM FACFAS Work Phone: [facility] 05-15-2024 08:50-0500 Body weight 89.81 kg Milton Fraire DPM FACFAS Work Phone: [facility] 05-15-2024 08:50-0500 Diastolic blood pressure 82 mm[Hg] Milton Fraire DPM FACFAS Work Phone: [facility] 05-15-2024 08:50-0500 Heart rate 92 /min Milton Fraire DPM FACFAS Work Phone: [facility] 05-15-2024 08:50-0500 Systolic blood pressure 132 mm[Hg] Milton Fraire DPM FACFAS Work Phone: [facility] 05-09-2024 14:55-0500 Body height 157.5 cm Giovani Hagen MD Work Phone: [facility] 05-09-2024 14:55-0500 Body mass index (BMI) [Ratio] 36.21 kg/m2 Giovani Hagen MD Work Phone: [facility] 05-09-2024 14:55-0500 Body weight 89.81 kg Giovani Hagen MD Work Phone: [facility] 05-09-2024 14:55-0500 Diastolic blood pressure 88 mm[Hg] Giovani Hagen MD Work Phone: [facility] 05-09-2024 14:55-0500 Heart rate 101 /min Giovani Hagen MD Work Phone: [facility] 05-09-2024 14:55-0500 SaO2% (BldA) [Mass fraction] 96 % Giovani Hagen MD Work Phone: [facility] 05-09-2024 14:55-0500 Systolic blood pressure 134 mm[Hg] Giovani Hagen MD Work Phone: [facility] 05-08-2024 15:13-0500 Body height 157.5 cm Prateek Pedraza DPM Work Phone: [facility] 05-08-2024 15:13-0500 Body mass index (BMI) [Ratio] 35.3 kg/m2 Prateek Pedraza DPM Work Phone: [facility] 05-08-2024 15:13-0500 Body weight 87.54 kg Prateek Pedraza DPM Work Phone: [facility] 05-08-2024 15:13-0500 Respiratory rate 18 /min Prateek Pedraza DPM Work Phone: [facility] 04-30-2024 15:10-0500 Body mass index (BMI) [Ratio] 35.12 kg/m2 Darwin Matty DO Work Phone: [facility] 01-07-2025 15:10-0500 Body weight 87.09 kg Darwin Matty DO Work Phone: [facility] 04-30-2024 15:10-0500 Diastolic blood pressure 74 mm[Hg] Darwin Matty DO Work Phone: [facility] 04-30-2024 15:10-0500 Systolic blood pressure 122 mm[Hg] Darwin Matty DO Work Phone: [facility] 04-26-2024 14:12-0500 Body mass index (BMI) [Ratio] 33.87 kg/m2 Iliana Yacapraro PA-C Work Phone: [facility] 04-26-2024 14:12-0500 Body weight 84 kg Iliana Yacapraro PA-C Work Phone: [facility] 04-26-2024 14:12-0500 Diastolic blood pressure 92 mm[Hg] Iliana Yacapraro PA-C Work Phone: [facility] 04-26-2024 14:12-0500 Heart rate 84 /min Iliana Yacapraro PA-C Work Phone: [facility] 04-26-2024 14:12-0500 Systolic blood pressure 133 mm[Hg] Iliana Yacapraro PA-C Work Phone: [facility] 04-18-2024 16:42-0500 Body mass index (BMI) [Ratio] 35.67 kg/m2 Josephine Gilman [employer] Work Phone: [facility] 04-18-2024 16:42-0500 Body temperature 97.7 [degF] Josephine Gilman MET[employer] Work Phone: [facility] 04-18-2024 16:42-0500 Body weight 88.45 kg Josephine Gilman [employer] Work Phone: [facility] 04-18-2024 16:42-0500 Diastolic blood pressure 82 mm[Hg] Josephine Gilman [employer] Work Phone: [facility] 04-18-2024 16:42-0500 Heart rate 112 /min Josephine Kalina [employer] Work Phone: [facility] Comment on above: repeat pulse 96bpm apical. 04-18-2024 16:42-0500 Respiratory rate 20 /min Josephine Kalina [employer] Work Phone: [facility] 04-18-2024 16:42-0500 SaO2% (BldA) [Mass fraction] 97 % Josephine Kalina [employer] Work Phone: [facility] 04-18-2024 16:42-0500 Systolic blood pressure 128 mm[Hg] Josephine Kalina [employer] Work Phone: [facility] 04-03-2024 10:39-0500 Body height 157.5 cm Deena Lyn [employer] Work Phone: [facility] 04-03-2024 10:39-0500 Body mass index (BMI) [Ratio] 35.01 kg/m2 Deena Lyn [employer] Work Phone: [facility] 04-03-2024 10:39-0500 Body weight 86.82 kg Deena Lyn [employer] Work Phone: [facility] 04-03-2024 10:39-0500 Diastolic blood pressure 82 mm[Hg] Deena Lyn [employer] Work Phone: [facility] 04-03-2024 10:39-0500 Heart rate 101 /min Deena Lyn [employer] Work Phone: [facility] 04-03-2024 10:39-0500 Respiratory rate 16 /min Deena Lyn [employer] Work Phone: [facility] 04-03-2024 10:39-0500 SaO2% (BldA) [Mass fraction] 99 % Deena Lyn [employer] Work Phone: [facility] 04-03-2024 10:39-0500 Systolic blood pressure 122 mm[Hg] Deena Lyn [employer] Work Phone: [facility] 04-01-2024 08:40-0500 Body height 157.5 cm Giovani Hagen MD Work Phone: [facility] 04-01-2024 08:40-0500 Body mass index (BMI) [Ratio] 34.39 kg/m2 Giovani Hagen MD Work Phone: [facility] 04-01-2024 08:40-0500 Body weight 85.28 kg Giovani Hagen MD Work Phone: [facility] 04-01-2024 08:40-0500 Diastolic blood pressure 88 mm[Hg] Giovani Hagen MD Work Phone: [facility] 04-01-2024 08:40-0500 Heart rate 88 /min Giovani Hagen MD Work Phone: [facility] 04-01-2024 08:40-0500 SaO2% (BldA) [Mass fraction] 94 % Giovani Hagen MD Work Phone: [facility] 04-01-2024 08:40-0500 Systolic blood pressure 132 mm[Hg] Giovani Hagen MD Work Phone: [facility] 03-20-2024 16:29-0500 Body mass index (BMI) [Ratio] 34.93 kg/m2 Darwin Matty DO Work Phone: [facility] 03-20-2024 16:29-0500 Body weight 86.64 kg Darwin Matty DO Work Phone: [facility] 03-20-2024 16:29-0500 Diastolic blood pressure 72 mm[Hg] Darwin Matty DO Work Phone: [facility] 03-20-2024 16:29-0500 Systolic blood pressure 118 mm[Hg] Darwin Matty DO Work Phone: [facility] 02-06-2024 09:14-0400 Body height 157.5 cm Giovani Hagen MD Work Phone: [facility] 02-06-2024 09:14-0400 Body mass index (BMI) [Ratio] 34.93 kg/m2 Giovani Hagen MD Work Phone: [facility] 02-06-2024 09:14-0400 Body weight 86.64 kg Giovani Hagen MD Work Phone: [facility] 02-06-2024 09:14-0400 Diastolic blood pressure 88 mm[Hg] Giovani Hagen MD Work Phone: [facility] 02-06-2024 09:14-0400 Heart rate 106 /min Giovani Hagen MD Work Phone: [facility] 02-06-2024 09:14-0400 SaO2% (BldA) [Mass fraction] 99 % Giovani Hagen MD Work Phone: [facility] 02-06-2024 09:14-0400 Systolic blood pressure 130 mm[Hg] Giovani Hagen MD Work Phone: [facility] 01-22-2024 13:37-0400 Diastolic blood pressure 74 mm[Hg] Darwin Matty DO Work Phone: [facility] 01-22-2024 13:37-0400 Systolic blood pressure 112 mm[Hg] Darwin Matty DO Work Phone: [facility] 01-09-2024 16:00-0400 Body height 157.5 cm Giovani Hagen MD Work Phone: [facility] 01-09-2024 16:00-0400 Body mass index (BMI) [Ratio] 34.75 kg/m2 Giovani Hagen MD Work Phone: [facility] 01-09-2024 16:00-0400 Body weight 86.18 kg Giovani Hagen MD Work Phone: [facility] 01-09-2024 16:00-0400 Diastolic blood pressure 84 mm[Hg] Giovani Hagen MD Work Phone: [facility] 01-09-2024 16:00-0400 Heart rate 96 /min Giovani Hagen MD Work Phone: [facility] 01-09-2024 16:00-0400 SaO2% (BldA) [Mass fraction] 98 % Giovani Hagen MD Work Phone: [facility] 01-09-2024 16:00-0400 Systolic blood pressure 124 mm[Hg] Giovani Hagen MD Work Phone: [facility] 12-28-2023 15:17-0400 Blood Pressure Location BHAVESH DEJESUS [facility] 12-28-2023 15:17-0400 Diastolic blood pressure 100 mm[Hg] BHAVESH OLEG [facility] 12-28-2023 15:17-0400 Heart rate 101 /min BHAVESH OLEG [facility] 12-28-2023 15:17-0400 Respiratory rate 18 /min BHAVESH DEJESUS [facility] 12-28-2023 15:17-0400 Systolic blood pressure 146 mm[Hg] BHAVESH OLEG [facility] 12-26-2023 15:07-0400 Body height 157.5 cm Giovani Hagen MD Work Phone: [facility] 12-26-2023 15:07-0400 Body mass index (BMI) [Ratio] 34.2 kg/m2 Giovani Hagen MD Work Phone: [facility] 12-26-2023 15:07-0400 Body weight 84.82 kg Giovani Hagen MD Work Phone: [facility] 12-26-2023 15:07-0400 Diastolic blood pressure 78 mm[Hg] Giovani Hagen MD Work Phone: [facility] 12-26-2023 15:07-0400 Heart rate 98 /min Giovani Hagen MD Work Phone: [facility] 12-26-2023 15:07-0400 SaO2% (BldA) [Mass fraction] 98 % Giovani Hagen MD Work Phone: [facility] 12-26-2023 15:07-0400 Systolic blood pressure 112 mm[Hg] Giovani Hagen MD Work Phone: [facility] 12-19-2023 15:01-0400 Body height 157.5 cm Solo Mora MD Work Phone: [facility] 12-19-2023 15:01-0400 Body mass index (BMI) [Ratio] 34.39 kg/m2 Solo Mora MD Work Phone: [facility] 12-19-2023 15:01-0400 Body weight 85.28 kg Solo Mora MD Work Phone: [facility] 12-19-2023 15:01-0400 Diastolic blood pressure 91 mm[Hg] Solo Mora MD Work Phone: [facility] 12-19-2023 15:01-0400 Heart rate 94 /min Solo Mora MD Work Phone: [facility] 12-19-2023 15:01-0400 Systolic blood pressure 127 mm[Hg] Solo Mora MD Work Phone: [facility] 11-02-2022 13:10-0400 Body height 157.5 cm Samuel Freeman MD Work Phone: [facility] 11-02-2022 13:10-0400 Body weight 71 kg Samuel Freeman MD Work Phone: [facility] 11-02-2022 13:10-0400 Diastolic blood pressure 97 mm[Hg] Samuel Freeman MD Work Phone: [facility] 11-02-2022 13:10-0400 Heart rate 100 /min Samuel Freeman MD Work Phone: [facility] 11-02-2022 13:10-0400 Systolic blood pressure 141 mm[Hg] Samuel Freeman MD Work Phone: [facility] 08-31-2022 15:30-0400 Diastolic blood pressure 91 mm[Hg] Carol Winn MD Work Phone: [facility] 08-31-2022 15:30-0400 Heart rate 99 /min Carol Winn MD Work Phone: [facility] 08-31-2022 15:30-0400 Respiratory rate 24 /min Carol Winn MD Work Phone: [facility] 08-31-2022 15:30-0400 SaO2% (BldA) [Mass fraction] 97 % Carol Winn MD Work Phone: [facility] 08-31-2022 15:30-0400 Systolic blood pressure 140 mm[Hg] Carol Winn MD Work Phone: [facility] 08-31-2022 14:10-0400 Body height 157.5 cm Carol Winn MD Work Phone: [facility] 08-31-2022 14:10-0400 Body mass index (BMI) [Ratio] 33.84 kg/m2 Carol Winn MD Work Phone: [facility] 08-31-2022 14:10-0400 Body weight 83.92 kg Carol Winn MD Work Phone: [facility] 06-30-2022 12:40-0500 Diastolic blood pressure 85 mm[Hg] Carol Winn MD Work Phone: [facility] 06-30-2022 12:40-0500 Heart rate 70 /min Carol Winn MD Work Phone: [facility] 06-30-2022 12:40-0500 Respiratory rate 12 /min Carol Winn MD Work Phone: [facility] 06-30-2022 12:40-0500 SaO2% (BldA) [Mass fraction] 100 % Carol Winn MD Work Phone: [facility] 06-30-2022 12:40-0500 Systolic blood pressure 120 mm[Hg] Carol Winn MD Work Phone: [facility] 06-30-2022 11:18-0500 Body height 157.5 cm Carol Winn MD Work Phone: [facility] 06-30-2022 11:18-0500 Body mass index (BMI) [Ratio] 33.84 kg/m2 Carol Winn MD Work Phone: [facility] 06-30-2022 11:18-0500 Body weight 83.92 kg Carol Winn MD Work Phone: [facility] 05-27-2022 11:29-0500 Body weight 85.73 kg Carol Winn MD Work Phone: [facility] 05-27-2022 11:29-0500 Diastolic blood pressure 92 mm[Hg] Carol Winn MD Work Phone: [facility] 05-27-2022 11:29-0500 Heart rate 102 /min Carol Winn MD Work Phone: [facility] 05-27-2022 11:29-0500 Systolic blood pressure 145 mm[Hg] Carol Winn MD Work Phone: [facility] 05-03-2022 15:30-0500 Body height 158.75 cm Imad Asaad Other [facility] Other 05-03-2022 15:30-0500 Body mass index (BMI) [Ratio] 34.55 kg/m2 Imad Asaad Other [facility] Other 05-03-2022 15:30-0500 Body weight 87.09 kg Imad Asaad Other [facility] Other 05-03-2022 15:30-0500 Diastolic blood pressure 91 mm[Hg] Imad Asaad Other [facility] Other 05-03-2022 15:30-0500 Systolic blood pressure 130 mm[Hg] Imad Asaad Other [facility] Other 05-03-2022 14:47-0500 Body weight 0 kg MD Giovani Hagen Work Phone: [facility] Encounters Encounter Date Encounter Type Care Provider Facility Start: 12-30-2024 ambulatory Madhuri R MISHRA Facility:[facility] Start: 07-04-2024 End: 07-04-2024 Office outpatient visit 25 minutes Giovani Hagen MD Work Phone: [facility] Comment on above: Anxiety (Primary Dx); Generalized idiopathic epilepsy and epileptic syndromes, not intractable, 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); 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CMS/HCC); PTSD (post-traumatic stress disorder) (CMS/HCC) Start: 07-04-2024 End: 07-04-2024 ambulatory GIOVANI HAGEN Not Available Start: 07-03-2024 End: 07-03-2024 ambulatory MILTON D DOLCE Not Available Start: 07-03-2024 End: 07-03-2024 Patient encounter procedure Milton D Dolce DPM FACFAS Work Phone: [facility] Comment on above: Peroneal tendon tear, right, initial enc ounter (Primary Dx); Right foot pain Start: 07-03-2024 End: 07-03-2024 Bamboo flowsheet Milton D Dolce DPM FACFAS Work Phone: [facility] Start: 07-03-2024 End: 07-03-2024 Bamboo flowsheet Milton D Dolce DPM FACFAS Work Phone: [facility] Start: 06-26-2024 End: 06-26-2024 ambulatory MILTON D DOLCE Not Available Start: 06-26-2024 End: 06-26-2024 Patient encounter procedure Milton D Dolce DPM FACFAS Work Phone: [facility] Comment on above: Peroneal tendon tear, right, initial enc ounter (Primary Dx); Right ankle instability Start: 06-26-2024 End: 06-26-2024 Bamboo flowsheet Milton Fraire DPM FACFAS Work Phone: [facility] Start: 06-26-2024 End: 06-26-2024 Bamboo flowsheet Milton Fraire DPM FACFAS Work Phone: [facility] Start: 06-25-2024 End: 06-25-2024 Office outpatient visit 15 minutes Darwin Matty DO Work Phone: [facility] Comment on above: Pain in female genitalia on intercourse; Cystitis Start: 06-25-2024 End: 06-25-2024 ambulatory DARWIN MATTY Not Available Start: 06-25-2024 End: 06-25-2024 Bamboo flowsheet Darwin Matty DO Work Phone: [facility] Start: 06-25-2024 End: 06-26-2024 Bamboo flowsheet Darwin Matty DO Work Phone: [facility] Start: 06-25-2024 End: 06-26-2024 External Result Encounter Darwin Matty DO Work Phone: [facility] External Department Unsolicited Start: 06-19-2024 End: 06-19-2024 Postop follow up visit related to original px Prateek Pedraza DPM Work Phone: [facility] Comment on above: Peroneal tendon tear, right, initial enc ounter (Primary Dx); Right ankle instability; Contracture of right ankle; Sprain of anterior talofibular ligament of right ankle, subsequent encounter Start: 06-19-2024 End: 06-19-2024 ambulatory PRATEEK PEDRAZA Not Available Start: 06-19-2024 End: 06-19-2024 Bamboo flowsheet Prateek Pedraza DPM Work Phone: [facility] Start: 06-19-2024 End: 06-19-2024 Bamboo flowsheet Prateek Mcclellan Hong DPM Work Phone: [facility] Start: 06-18-2024 End: 06-19-2024 Refill Sandy JUSTICE Work Phone: [facility] Comment on above: Anxiety; Bipolar disorder, in partial remission, most recent episode manic (CMS/HCC) Start: 06-12-2024 End: 06-12-2024 Telephone encounter Milton Fraire DPM FACFAS Work Phone: [facility] Start: 06-06-2024 End: 06-06-2024 ambulatory GIOVANI HAGEN Not Available Start: 06-06-2024 End: 06-06-2024 Office outpatient visit 25 minutes Giovani Hagen MD Work Phone: [facility] Comment on above: 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CMS/HCC) (Primary Dx); Attention deficit hyperactivity disorder (ADHD), predominantly inattentive type (CMS/HCC); Bipolar disorder, in partial remission, most recent episode manic (CMS/HCC) Start: 06-03-2024 End: 06-03-2024 Refill Giovani Hagen MD Work Phone: [facility] Comment on above: Attention deficit hyperactivity disorder (ADHD), predominantly inattentive type (CMS/HCC) Start: 05-29-2024 End: 05-29-2024 Bamboo flowsheet Ayleen JUSTICE Work Phone: [facility] Start: 05-29-2024 End: 05-29-2024 Bamboo flowsheet Ayleen JUSTICE Work Phone: [facility] Start: 05-29-2024 End: 05-29-2024 Postop follow up visit related to original px Ayleen JUSTICE Work Phone: [facility] Comment on above: Postop check Start: 05-29-2024 End: 05-29-2024 ambulatory AYLEEN MCWILLIAMS Not Available Start: 05-27-2024 End: 05-27-2024 Clinisync Result Encounter Generic External Data Provider [facility] Unsolicited Start: 05-27-2024 End: 05-27-2024 Clinisync Result Encounter Generic External Data Provider [facility] External [facility] Unsolicited Start: 05-23-2024 End: 05-23-2024 Clinisync Result Encounter Darwin Matty DO Work Phone: [facility] Unsolicited Start: 05-23-2024 End: 05-23-2024 Clinisync Result Encounter Darwin Matty DO Work Phone: [facility] Unsolicited Start: 05-23-2024 End: 05-24-2024 Orders Only Carol Winn MD Work Phone: Ambulatory Surgery Comment on above: Results (C diff) Start: 05-22-2024 End: 05-22-2024 ambulatory [facility] Facility:[facility] Start: 05-22-2024 End: 05-22-2024 Clinisync Result [...] Transcribe Orders Rosario Mcconnell MD Work Phone: [facility] Comment on above: ENGLISH (nonalcoholic steatohepatitis) (Rosanne osman Dx) Start: 05-09-2024 End: 05-09-2024 Office outpatient visit 15 minutes Giovani Hagen MD Work Phone: [facility] Comment on above: Cervical radiculopathy due to degenerati ve joint disease of spine (Primary Dx) Start: 05-09-2024 End: 05-09-2024 Orders Only Flores Allie DO Work Phone: Orthopaedics Comment on [...] in partial remission, most recent episode manic ([facility]/HCC) Start: 05-06-2024 End: 05-06-2024 Telephone encounter Solo Mora MD Work Phone: Cardiology Comment on above: Patient Update (04/09/24 Echo Faxed) Start: 05-02-2024 End: 05-15-2024 Orders Only Iliana Mercado PA-C Work Phone: Gastroenterology Comment on above: Elevated LFTs (Primary Dx) Received images Start: 04-30-2024 End: 04-30-2024 Office outpatient visit 15 minutes Darwin Matty DO Work Phone: [facility] Comment on above: Pre-op evaluation; H/O female dyspareunia; Pelvic pain; Other endometriosis; H/O: hysterectomy Start: 04-30-2024 End: 04-30-2024 Preprocedural examination done Darwin Matty DO Work Phone: [facility] Start: 04-30-2024 End: 04-30-2024 Bamboo flowsheet Darwin Matty DO Work Phone: [facility] Start: 04-30-2024 End: 04-30-2024 Bamboo flowsheet Darwin Matty DO Work Phone: [facility] Start: 04-30-2024 End: 04-30-2024 Refill Giovani Hagen MD Work Phone: [facility] Comment on above: Attention deficit [...] Start: 04-26-2024 End: 04-26-2024 ambulatory ILIANA MERCADO Facility:[facility] Start: 04-26-2024 End: 04-26-2024 Patient encounter procedure Lydia Kelley DO Work Phone: Orthopaedics Comment on above: Sprain of anterior talofibular ligament of right ankle, initial encounter (Primary Dx) Start: 04-22-2024 End: 04-22-2024 Telephone encounter Giovani Hagen MD Work Phone: [facility] Start: 04-19-2024 End: 04-22-2024 Refill Sandy JUSTICE Work Phone: [facility] Comment on above: Obesity (BMI 35.0-39.9 without comorbidi ty) Start: 04-18-2024 End: 04-18-2024 ambulatory JOSEPHINE GILMAN Not Available Start: 04-18-2024 End: 04-18-2024 Office outpatient visit 25 minutes Josephine Gilman [employer] Work Phone: [facility] Comment on above: Acute bronchitis with asthma (CMS/HCC) ( Primary Dx) Start: 04-16-2024 End: 04-16-2024 ambulatory GIOVANI HAGEN Not Available Start: 04-09-2024 End: 04-09-2024 ambulatory SOLO MORA Facility:[facility] Start: 04-05-2024 End: 04-09-2024 ambulatory [facility] Cardiology Comment on above: Surgical Clearance Start: 04-05-2024 End: 04-05-2024 Telephone encounter Solo Mora MD Work Phone: Cardiology Comment on above: Received Outside Medical Records (Cardio Clearance [facility]) Start: 04-03-2024 End: 04-03-2024 ambulatory DEENA LYN Not Available Start: 04-03-2024 End: 04-03-2024 Office outpatient visit 25 minutes Deena Lyn [employer] Work Phone: [facility] Comment on above: Hypokalemia (Primary Dx); Elevated blood sugar; Pre-operative clearance; Acute pain of left shoulder; Obesity (BMI 35.0-39.9 without comorbidity) Start: 04-03-2024 End: 04-03-2024 Preoperative state Deena Lyn [employer] Work Phone: [facility] Start: 04-02-2024 End: 04-02-2024 Telephone encounter Solo Mora MD Work Phone: Cardiology Comment on above: Received Outside Medical Records ([facility]) Start: 04-01-2024 End: 04-01-2024 ambulatory GIOVANI [...] Unsolicited Start: 03-19-2024 End: 03-19-2024 ambulatory Anitra Baincelina 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 [facility] Comment on above: Cervical radiculopathy (Primary Dx) Start: 03-11-2024 End: 03-11-2024 ambulatory Arun Brink 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 [facility] Comment on above: Cervical radiculopathy (Primary Dx) Start: 03-11-2024 End: 03-11-2024 Bamboo flowsheet Arun Brink 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 [facility] Start: 03-11-2024 End: 03-11-2024 Bamboo flowsheet Arun Brink 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 [facility] Start: 03-07-2024 End: 03-07-2024 Michael Hagen MD Work Phone: [facility] Comment on above: Obesity (BMI 35.0-39.9 without comorbidi ty) Start: 03-06-2024 End: 03-07-2024 ambulatory Arun Brink 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 [facility] Comment on above: Cervical radiculopathy (Primary Dx) Anxiety; Bipolar disorder, in partial remission, most recent episode manic ([facility]) Start: 02-29-2024 End: 02-29-2024 ambulatory Anitra Radhames 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 [facility] Comment on above: Cervical radiculopathy (Primary Dx) Start: 02-29-2024 End: 02-29-2024 Bamboo flowsheet Anitranisha Lry WELDER 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 [facility] Start: 02-29-2024 End: 02-29-2024 Bamboo flowsheet Anitra Lry WELDER 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 [facility] Start: 02-27-2024 End: 02-27-2024 ambulatory Anitra Ricci WELDER 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 [facility] Comment on above: Cervical radiculopathy (Primary Dx) Start: 02-27-2024 End: 02-27-2024 Bamboo flowsheet Anitra Lry WELDER 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 [facility] Start: 02-27-2024 End: 02-27-2024 Bamboo flowsheet Anitra Lry WELDER 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 [facility] Start: 02-20-2024 End: 02-20-2024 Refill Audrey Chris BAREBACK RIDER [facility] Comment on above: Attention deficit hyperactivity disorder (ADHD), predominantly inattentive type (CMS/HCC) Start: 02-14-2024 End: 02-15-2024 ambulatory Arun Brink WELDER 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 [facility] Comment on above: Cervical radiculopathy (Primary Dx) Start: 02-14-2024 End: 02-14-2024 Bamboo flowsheet Arun Brink WELDER 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 [facility] Start: 02-14-2024 End: 02-14-2024 Bamboo flowsheet Arun Brink WELDER 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 [facility] Start: 02-12-2024 End: 02-12-2024 ambulatory Zhen Burgess PT Work Phone: [facility] Comment on above: Cervical radiculopathy (Primary Dx) Start: 02-12-2024 End: 02-12-2024 Bamboo flowsheet Zhen Burgess PT Work Phone: [facility] Start: 02-12-2024 End: 02-12-2024 Bamboo flowsheet Zhen Burgess PT Work Phone: [facility] Start: 02-07-2024 End: 02-07-2024 ambulatory Arun Brink WELDER 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 [facility] Comment on above: Cervical radiculopathy (Primary Dx) Start: 02-07-2024 End: 02-07-2024 Bamboo flowsheet Arun Brink WELDER 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 [facility] Start: 02-07-2024 End: 02-07-2024 Bamboo flowsheet Arun Hernadez WELDER 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 [facility] Start: 02-06-2024 End: 02-06-2024 Office outpatient visit 25 minutes Giovani Hagen MD Work Phone: [facility] Comment on above: Localized edema (Primary Dx); Obesity (BMI 35.0-39.9 without comorbidity); Injury of right ankle, subsequent encounter; Anxiety; Bipolar disorder, in partial remission, most recent episode manic ([facility] Start: 02-06-2024 End: 02-06-2024 ambulatory [...] PT Initial Eval (Tried to contact to [facility] PT Eval for cervical radiculopathy; but [...] (CMS/HCC) Start: 01-09-2024 End: 01-09-2024 ambulatory GIOVANI Bob HIEU Not Available Start: 01-08-2024 End: 01-08-2024 Telephone encounter Giovani Hagen MD Work Phone: [facility] Comment on above: Med Refill Start: 12-28-2023 End: 12-28-2023 Patient encounter procedure BHAVESH DEJESUS [facility] Start: 12-28-2023 End: 12-29-2023 ambulatory BHAVESH DEJESUS Facility:[facility] Comment on above: Zio Start: 12-26-2023 End: [...] End: 02-01-2024 Telephone encounter Benito Kendrick [facility] Comment on above: Lab results Start: 12-13-2023 End: 12-13-2023 Clinisync Result Encounter Generic External Data Provider NOMS External Department Unsolicited Start: 12-13-2023 End: 12-13-2023 Clinisync Result Encounter Generic External Data Provider NOMS External Department Unsolicited Start: 12-04-2023 End: 12-04-2023 ambulatory GIOVANI HAGEN Not Available Start: 12-04-2023 Patient encounter status Zhen Burgess PT Work Phone: [facility] Start: 11-02-2023 Orders Only Solo Mora MD Work Phone: Cardiology Comment on above: Gastroparesis (Primary Dx) Patient Update (Refe rral & Records are in Care Everywhere) Start: 10-03-2023 End: 10-03-2023 ambulatory GIOVANI HAGEN Not Available Start: 09-07-2023 End: 09-07-2023 ambulatory CADE Altagracia JERI Not Available Start: 03-22-2023 End: 03-24-2023 Evaluation and management of inpatient [facility] Start: 03-20-2023 ambulatory Carol Winn MD [...] Start: 10-26-2022 End: 10-26-2022 ambulatory Imad Asaad Facility:[facility] Start: 10-26-2022 End: 10-26-2022 ambulatory MD Giovani Hagen Work Phone: [facility] Work Phone: Start: 10-26-2022 End: 10-26-2022 Patient encounter procedure MD Giovani Hagen Work Phone: [facility]-Ultrasound [place] Work Phone: Start: 10-18-2022 ambulatory Maria Dolores Corey DO Work Phone: Gastroenterology Start: 10-18-2022 Telephone encounter Maria Dolores Corey DO Work Phone: Gastroenterology Comment on above: Medication Preauthorization ([employer]) Results Start: 10-17-2022 End: 10-17-2022 Patient encounter procedure [facility] Work Phone: Gastroenterology Comment on above: Gastroparesis (Primary Dx) Start: 09-12-2022 End: 09-12-2022 Subsequent hospital visit by physician [facility] Work Phone: [facility] Rad[facility] Molecular Comment on above: Nausea [R11.0] Start: 08-31-2022 End: 08-31-2022 Subsequent hospital visit by physician Carol Winn MD Work Phone: Ambulatory Surgery Comment on above: PUD (peptic ulcer disease) [K27.9] Start: 08-24-2022 Telephone encounter Nurse [facility] Work Phone: Gastroenterology Comment on above: Appointment Start: 07-08-2022 End: 07-08-[address] MADHURI MISHRA . Facility:[facility] Start: 07-06-2022 End: 07-07-[address] MADHURI MISHRA . Facility:[facility] Start: 07-05-2022 End: 07-05-2022 Patient encounter procedure Madhuri MISHRA [facility] Start: 07-04-2022 Orders Only Carol Winn MD Work Phone: Gastroenterology Start: 06-30-2022 End: 06-30-2022 Subsequent hospital visit by physician Carol Winn MD Work Phone: Ambulatory Surgery Comment on above: Bilious vomiting with nausea [R11.14] Start: 06-29-2022 End: 06-30-[address] MADHURI MISHRA . Facility:[facility] Start: 06-29-2022 End: 06-29-2022 Lab Drop off Madhuri MISHRA [facility] Start: 06-23-2022 ambulatory Carol Winn MD Work Phone: Gastroenterology Comment on above: EGD instructions Start: 06-23-2022 E-mail encounter from caregiver Carol Winn MD Work Phone: [facility] Start: 06-16-2022 ambulatory [facility] Provider Gastroenterology Comment on above: Question regarding US ABD RT UPPER QUADR ANT Start: 06-15-2022 End: 06-15-2022 Subsequent hospital visit by physician [facility] Work Phone: [facility] Radiology Ultrasound Comment on above: Liver lesion [K76.9] Start: 06-14-2022 Orders Only Carol Winn MD Work Phone: Ambulatory Surgery Comment on above: Liver lesion (Primary Dx) Results Start: 06-10-2022 ambulatory Diamond Pycraft RT(R) Radiology Ct Scan Comment on above: Radiology CT Start: 06-10-2022 Patient encounter procedure Diamond Pycraft RT(R) [facility] Start: 06-10-2022 End: 06-10-2022 Subsequent hospital visit by physician Ct Prep [facility] C[facility] Radiology Ct Scan Comment on above: Bilious vomiting with nausea [R11.14] Start: 05-27-2022 End: 05-27-2022 Subsequent hospital visit by physician Xr [facility] Work Phone: [facility] Radiology General Comment on above: SOB (shortness of breath) [R06.02] Start: 05-27-2022 End: 05-27-2022 Patient encounter procedure Carol Winn MD Work Phone: Gastroenterology Comment on above: Fatty liver (Primary Dx); Bilious vomiting with nausea; Right sided abdominal pain; Nausea; History of diverticulitis; SOB (shortness of breath) Start: 05-13-2022 End: 05-13-2022 ambulatory Imad Asaad Facility:[facility] Start: 05-13-2022 End: 05-13-2022 ambulatory MD Giovani Hagen Work Phone: [facility] Work Phone: Start: 05-13-2022 End: 05-13-2022 Patient encounter procedure MD Giovani Hagen Work Phone: [facility]-Digestive Health Work Phone: Start: 05-03-2022 End: 05-04-2022 ambulatory IMAD [facility] Other Start: 05-03-2022 Office consultation new/estab patient 60 min Imad Asaad [facility] Gastroenterology Start: 04-20-2022 End: 04-20-[address] AURORA IRBY . Facility:[facility] Start: 04-06-2022 End: 04-07-[address] GIOVANI HAGEN Facility:[facility] Start: 12-21-2021 End: 12-22-[address] AURORA IRBY . Facility:[facility] Start: 12-10-2021 End: 12-10-2021 Subsequent hospital visit by physician [facility]ound Comment on above: Elevated LFTs [...] 11-06-2018 End: 11-09-2018 Patient encounter procedure OZIEL [facility] Procedures Date Procedure Procedure Detail Performing Clinician Start: 07-03-2024 Radex ankle complete minimum 3 views Milton Fraire DPM FACFAS Work Phone: Start: 06-25-2024 RECURRENT VAGINITIS (HTRX) Darwin Matty D O Work Phone: Start: 05-27-2024 MLR HEMOGLOBIN A1C Darwin Matty DO Work Phone: Start: 05-23-2024 ALL CBC WITH AUTO DIFF Generic External Data Provider Start: 05-22-2024 Inf agent det nucleic acid clostridium amp probe Carol Winn MD Work Phone: Start: 05-22-2024 Colonoscopy Generic External Data Provider Start: 05-22-2024 Colonoscopy flx dx w/collj spec when pfrmd Iliana JUSTICE-C Work Phone: Start: 05-15-2024 Radex ankle complete [...] FLORES FELIPA H/O: hysterectomy H/O: hysterectomy Darwin Mcleodo DO Work Phone: Hysterectomy Madhuri MISHRA Plan of Treatment Date Care Activity Detail Author Start: 12-23-2024 Influenza vaccination Influenza Vaccine (#1) [facility] Comment on above: Postponed from 12/24/2023 (Other Medical Reasons) Start: 07-26-2024 End: 07-26-2024 ambulatory 07/26/2024 8:40 AM EDT [facility] [address] [place], [place] [id number] [place] [address] [place] [phone] Elevated LFT, per Pt Gastroenterology Comment on above: Elevated LFT, per Pt Start: 07-24-2024 End: 07-24-2024 Patient encounter procedure 07/24/2024 3:50 PM EDT Office Visit [facility] P[facility] [address] [place] [address] Milton Fraire, DPM [facility] [address] [place] [address] [facility] POD Start: 07-04-2024 End: 07-04-2024 Patient encounter procedure 07/04/2024 3:30 PM EDT Office Visit [facility] [address] [facility] [address] [place] [address] Giovani Hagen MD [address] [facility] [address] [place] [address] [facility] Start: 07-03-2024 End: 07-03-2024 Patient encounter procedure 07/03/2024 2:20 PM EDT Office Visit [facility] P[facility] [address] [place] [address] Milton Fraire, DPM [facility]AS [address] [place] [address] [facility] NMA POD Start: 06-26-2024 End: 06-26-2024 Patient encounter procedure 06/26/2024 2:50 PM EST Office Visit [facility] [address] [phone] Milton Fraire, DPM FACFAS [address] [place] [address] [facility] NMA POD Start: 06-25-2024 End: 06-25-2024 Patient encounter procedure [facility] BCP OB Comment on above: Arrived Start: 06-24-2024 End: 06-24-2024 Patient encounter procedure 06/24/2024 10:40 AM EST Office Visit [facility] [address] [place] [phone] Milton Fraire, DPM [facility]AC[facility]AS [address] [place] [address] [facility] NMA POD Start: 06-19-2024 End: 06-19-2024 Patient encounter procedure [facility] SC POD Comment on above: Arrived Start: 06-17-2024 End: 06-17-2024 Patient encounter procedure 06/17/2024 10:30 AM EST Office Visit Orthopaedics [address] [place] [address] Naren Verdugo PA-C [address] [place] [address] 1st post op Rt ankle arthroscopy/internal brace 06/04/24 Orthopaedics Comment on above: 1st post op Rt ankle arthroscopy/interna l brace 06/04/24 Start: 06-12-2024 End: 06-12-2024 ambulatory 06/12/2024 1:45 PM EST Results Only Cardiology [address] [place] [address] Dx: Syncope, unspecified syncope type [R55] Cardiology Comment on above: Dx: Syncope, unspecified syncope type [R 55] Start: 06-12-2024 End: 06-12-2024 Patient encounter procedure Cardiology Comment on above: Dx: Syncope, unspecified syncope type [R 55] Start: 06-10-2024 End: 06-10-2024 Patient encounter procedure 06/10/2024 9:40 AM EST Appointment [facility] [address] [facility] [address] [place] [address] Rosario Mcconnell I, MD [address] [facility] [address] [place] [address] CRIOH RESEARCH - CORCEPT [facility] [place] Comment on above: CRIOH RESEARCH - CORCEPT Start: 06-04-2024 End: 06-04-2024 Patient encounter procedure 06/04/2024 9:40 AM EST Office Visit [facility] [address] [place] [address] Milton Fraire, DPM [facility] [address] [place] [address] [facility] NMA POD Start: 06-04-2024 End: 06-04-2024 Admission to same day surgery center 06/04/2024 7:30 AM EST - 06/04/2024 10:10 AM EST Surgery [facility] [address] [place] [address] Lydia Kelley DO [address] [place] [address] REPAIR ANKLE LIGAMENT SECONDARY DISRUPTED, COLLATERAL [facility] Comment on above: REPAIR ANKLE LIGAMENT SECONDARY DISRUPTLISBETH Briseno Start: 06-04-2024 End: 06-04-2024 Repair secondary disrupted ligament ankle coltrl REPAIR ANKLE LIGAMENT SECONDARY DISRUPTED, COLLATERAL Right ankle instability 06/04/2024 7:30 AM EST ME OR Start: 06-04-2024 Subsequent hospital visit by physician 06/04/2024 7:30 AM EST Hospital Encounter [facility] [address] [place] [address] Lydia Kelley DO [address] [place] [address] 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] [facility] Comment on above: 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] Start: 05-31-2024 End: 05-31-2024 ambulatory 05/31/2024 1:15 PM EST [facility] [address] [address] Lydia Kelley [address] [place] [address] 4 week f/u, right ankle Orthopaedics Comment on above: 4 week f/u, right ankle Start: 05-31-2024 End: 05-31-2024 Patient encounter procedure 05/31/2024 9:45 AM EST Office Visit Orthopaedics [address] [address] Lydia Kelley, [address] [place] [address] 4 week f/u, right ankle Orthopaedics Comment on above: 4 week f/u, right ankle Start: 05-29-2024 End: 05-29-2024 Patient encounter procedure [facility] BCP OB Comment on above: Arrived Start: 05-22-2024 End: 05-22-2024 Patient encounter procedure 05/22/2024 2:30 PM EST Appointment Ambulatory Surgery [address] [place] [address] [place] [address] [place] [phone] BRBPR (bright red blood per rectum) [K62.5] Ambulatory Surgery Comment on above: BRBPR (bright red blood per rectum) [K62 .5] Start: 05-15-2024 End: 05-15-2024 Patient encounter procedure [facility] NMA POD Comment on above: Arrived Start: 05-08-2024 End: 05-08-2024 Patient encounter procedure 05/08/2024 3:10 PM EST Office Visit [facility] SC POD [address] [place] [address] Prateek Pedraza DPM [address] [facility] [address] [place] [address] [facility] SC POD Start: 05-05-2024 End: 05-05-2024 Anesthesia consultation 05/05/2024 11:59 PM EST Anesthesia Event Ambulatory Surgery [address] [place] [address] Sharla Bonds APRN.CLAIMS SPECIALIST [address] [place] [address] Ambulatory Surgery Start: 05-02-2024 End: 05-02-2024 ambulatory 05/02/2024 12:00 PM EST Procedure Gastroenterology [address] [place] [address] fibroscan Gastroenterology Comment on above: fibroscan Start: 05-01-2024 End: 05-01-2024 Patient encounter procedure 05/01/2024 4:30 PM EST Office Visit [facility] SC POD [address] [place] [phone] Prateek Pedraza DPM [address] [address] [facility] SC POD Start: 04-30-2024 End: 04-30-2024 Patient encounter procedure [facility] BCP OB Comment on above: Arrived Start: 04-26-2024 End: 04-26-2024 Patient encounter procedure 04/26/2024 3:05 PM EST Office Visit Gastroenterology [address] [place] [address] Iliana Mercado PA-C [address] [place] [address] Elevated LFT, per Pt Gastroenterology Comment on above: Elevated LFT, per Pt Start: 04-26-2024 End: 07-26-2024 Alpha 1 antitrypsin [Mass/volume] in Serum or Plasma [facility] Comment on above: Expected: 04/26/2024, Expires: Start: 04-26-2024 End: 07-26-2024 [id number] [Mass/volume] in Serum or Plasma [facility] Work Phone: Comment on above: Expected: 04/26/2024, Expires: Start: 04-26-2024 End: 07-26-2024 DENY BY IFA WITH REFLEX [facility] Comment on above: Expected: 04/26/2024, Expires: Start: 04-26-2024 End: 07-26-2024 Ceruloplasmin [Mass/volume] in Serum or Plasma [facility] Comment on above: Expected: 04/26/2024, Expires: Start: 04-26-2024 End: 07-26-2024 Hepatitis A virus IgM Ab [Presence] in Serum [facility] Comment on above: Expected: 04/26/2024, Expires: Start: 04-26-2024 End: 07-26-2024 Hepatitis B virus core IgM Ab [Presence] in Serum [facility] Comment on above: Expected: 04/26/2024, Expires: Start: 04-26-2024 End: 07-26-2024 Hepatitis B virus surface Ag [Presence] in Serum [facility] Comment on above: Expected: 04/26/2024, Expires: Start: 04-26-2024 End: 07-26-2024 Hepatitis C virus Ab [Presence] in Serum [facility] Comment on above: Expected: 04/26/2024, Expires: Start: 04-26-2024 End: 07-26-2024 Mitochondria Ab [Presence] in Serum by Immunofluorescence [facility] Comment on above: Expected: 04/26/2024, Expires: Start: 04-26-2024 End: 07-26-2024 Smooth muscle Ab [Presence] in Serum [facility] Comment on above: Expected: 04/26/2024, Expires: Start: 04-03-2024 End: 04-03-2025 Hemoglobin A1c/Hemoglobin.total in Blood Hemoglobin A1c Lab Routine Elevated blood sugar Expected: 04/03/2024 (Approximate), Expires: 04/03/2025 [facility] Comment on above: Expected: 04/03/2024 (Approximate), [...] Visit [facility] [address] [facility] [address] [place] [address] Giovani Hagen MD [address] [facility] [address] [place] [address] [facility] FM Start: 03-27-2024 End: 03-27-2024 ambulatory 03/27/2024 4:00 PM EST Treatment [facility] PT [address] [facility] [address] [place] [address] Zhen Burgess, PT [address] [facility] [address] [place] [address] [facility] Start: 03-25-2024 End: 03-25-2024 ambulatory 03/25/2024 4:00 PM EST Treatment [facility] PT [address] [facility] [address] [place] [address] Arun Hernadez, 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 [facility] Start: 03-20-2024 End: 03-20-2024 Patient encounter procedure 03/20/2024 4:00 PM EST Office Visit [facility] BCP OB [address] [place] [address] Darwin Starr DO [address] [facility] [place] [address] [facility]CP OB Start: 03-19-2024 End: 03-19-2024 ambulatory 03/19/2024 4:00 PM EST Treatment [facility] PT [address] [facility] [address] [place] [address] Anitra Ricci PTA [facility] Start: 03-13-2024 End: 03-13-2024 ambulatory 03/13/2024 4:30 PM EST Treatment [facility] PT [address] [facility] [address] [place] [address] Zhen Burgess, PT [address] [facility] [address] [place] [address] [facility] PT Start: 03-11-2024 End: 03-11-2024 ambulatory [facility] PT Comment on above: Arrived Start: 03-06-2024 End: 03-06-2024 ambulatory [facility] PT Start: 03-04-2024 End: 03-04-2024 ambulatory 03/04/2024 9:00 AM EST Treatment [facility] PT [address] [facility] [address] [place] [address] Arun Hernadez, CINDY [facility] Start: 02-29-2024 End: 02-29-2024 ambulatory [facility] PT Comment on above: Arrived Start: 02-27-2024 End: 02-27-2024 ambulatory [facility] Comment on above: Arrived Start: 02-21-2024 End: 02-21-2024 ambulatory 02/21/2024 4:30 PM EDT Treatment [facility] [address] [facility] [address] [place] [phone] Anitra Ricci, CINDY [facility] Start: 02-14-2024 End: 02-14-2024 ambulatory [facility] Start: 02-13-2024 End: 02-13-2024 Patient encounter procedure Cardiology Comment on above: Dx: Syncope, unspecified syncope type [R 55] Start: 02-13-2024 End: 02-13-2024 ambulatory 02/13/2024 2:00 PM EDT Results Only Cardiology [address] [place] [address] Dx: Syncope, unspecified syncope type [R55] Cardiology [...] Office Visit [facility] BCP OB [address] [place] [phone] Darwin Starr DO [address] [facility] [address] [place], [place] [phone] [facility] BCP OB Start: 01-09-2024 End: 01-09-2024 Patient encounter procedure 01/09/2024 4:00 PM EDT Office Visit [facility] FM [address] [facility] [address] [place] [phone] Giovani Hagen MD [address] [facility] [address] [place] [address] [facility] CI FM Start: 01-09-2024 End: 01-08-2025 MR Cervical spine WO contrast MR cervical spine wo contrast Imaging Routine Cervical radiculopathy Expected: 01/09/2024, Expires: 01/08/2025 [facility] Comment on above: Expected: 01/09/2024, Expires: Start: 01-09-2024 End: 01-08-2025 XR Cervical spine 2 or 3 Views XR cervical spine 2 or 3 views Imaging Routine Cervical radiculopathy Expected: 01/09/2024, Expires: 01/08/2025 [facility] Work Phone: Comment on above: Expected: 01/09/2024, Expires: Start: 12-24-2023 Covid-19 Vaccine () Covid-19 Vaccine () [facility] Start: 12-24-2023 Covid-19 Vaccine () Covid-19 Vaccine () [facility] Start: 12-24-2023 Influenza vaccination [facility] Start: 12-19-2023 End: 12-19-2023 ambulatory 12/19/2023 2:15 PM EDT Results Only Cardiology [address] [place] [address] Exertional Syncope. Referring: Dr. Shilo Dillon Cardiology Comment on above: Exertional Syncope. Referring: Dr. Shilo Dillon Start: 12-19-2023 End: 12-19-2023 Patient encounter procedure Cardiology Comment on above: Exertional Syncope. Referring: Dr. Shilo Dillon Start: 04-24-2023 Behavioral Health Screening Behavioral Health Screening [facility] Start: 12-23-2022 Covid-19 Vaccine () Covid-19 Vaccine () [facility] Start: 12-23-[address] [facility] Start: 05-13-2022 [facility] Start: 04-24-2022 DEPRESSION ASSESSMENT DEPRESSION ASSESSMENT [facility] Start: 12-28-2021 COVID-19 VACCINE (4 - Booster for Pfizer series) COVID-19 VACCINE (4 - Booster for Pfizer series) [facility] Start: 12-28-2021 COVID-19 VACCINE (4 - Pfizer series) COVID-19 VACCINE (4 - Pfizer series) [facility] Start: 12-23-2021 Influenza vaccination INFLUENZA (#1) [facility] Start: 02-06-2020 Urine microalbumin profile DTaP,Tdap,Td Vaccine (6 - Td or Tdap) [facility] Start: 2018 HPV TESTING HPV TESTING [facility] Start: 2009 PAP TESTING PAP TESTING [facility] Start: 2009 Screening for malignant neoplasm of cervix Cervical Cancer Screening [facility] Start: 09-29-2007 Urine microalbumin profile DTAP,TDAP,TD (1 - Tdap) [facility] Start: 11-30-2006 HPV Vaccine (2 - 3-dose series) HPV Vaccine (2 - 3-dose series) [facility] Start: 2006 Anxiety Screening Anxiety Screening [facility] Start: 2006 Depression Screening Depression Screening [facility] Start: 2006 HEPATITIS C SCREENING HEPATITIS C SCREENING [facility] Start: 2006 Hepatitis C screening Hepatitis C Screening [facility] Start: 2006 HIV SCREENING HIV SCREENING [facility] Start: 2006 HIV screening HIV Screening [facility] Start: 1988 HEPATITIS B (1 of 3 - 3-dose series) HEPATITIS B (1 of 3 - 3-dose series) [facility] Actin smooth muscle IgG Ab [Units/volume] in Serum [facility] Alpha 1 antitrypsin [Mass/volume] in Serum or Plasma [facility] Alpha 1 antitrypsin phenotyping [Identifier] in Serum or Plasma by Immunofixation [facility] Ceruloplasmin [Mass/volume] in Serum or Plasma [facility] CHLAMYDIA TRACHOMATI S (GENITO/STI) CHLAMYDIA TRACHOMATIS (GENITO/STI) Lab Routine Pain in female genitalia on intercourse Cystitis Ordered: 06/25/2024 [facility] Comment on above: Ordered: 06/25/2024 End: 05-23-2024 CLOSTRIDIUM DIFFICILE TOXIN BY EIA [facility] Comment on above: ONCE for 1 Occurrences starting 05/23/19 25 until 05/23/2024 End: 06-26-2023 Ct abdomen & pelvis w/o contrast material CT ABD/PEL WO IVCON Radiology Routine Bilious vomiting with nausea Right sided abdominal pain Nausea 1 Occurrences starting 05/27/2022 until 06/26/2023 [facility] Work Phone: Comment on above: 1 Occurrences starting 05/27/2022 until 06/26/2023 End: 05-14-2025 CT Guidance for core needle biopsy of Liver LIVER BIOPSY NEEDLE Endoscopy Routine ENGLISH (nonalcoholic steatohepatitis) 1 Occurrences starting 05/14/2024 until 05/14/2025 [facility] Work Phone: Comment on above: 1 Occurrences starting 05/14/2024 until 05/14/2025 Cytology Cervical or vaginal smear or scraping study Pap Smear Pathology and Cytology Routine Well woman exam with routine gynecological exam Ordered: 03/20/2024 [facility] Work Phone: Comment on above: Ordered: 03/20/2024 End: 11-01-2024 ECG COMPLETE ECG COMPLETE ECG Routine Gastroparesis 1 Occurrences starting 11/02/2023 until 11/01/2024 [facility] Work Phone: Comment on above: 1 Occurrences starting 11/02/2023 until 11/01/2024 End: 12-18-2024 ECG COMPLETE ECG COMPLETE ECG Routine Syncope and collapse 1 Occurrences starting 12/19/2023 until 12/18/2024 [facility] Work Phone: Comment on above: 1 Occurrences starting 12/19/2023 until 12/18/2024 End: 05-27-2023 EGD DIAGNOSTIC EGD DIAGNOSTIC Endoscopy Routine Bilious vomiting with nausea Right sided abdominal pain 1 Occurrences starting 05/27/2022 until 05/27/2023 [facility] Work Phone: Comment on above: 1 Occurrences starting 05/27/2022 until 05/27/2023 Electrogastrography dx transcutaneous EGG (ELECTROGASTROGRAPHY) Procedures Routine Gastroparesis Ordered: 09/14/2022 [facility] Work Phone: Comment on above: Ordered: 09/14/2022 ENTERIC BACTERIAL PA BELEM BY PCR [facility] Work Phone: Comment on above: Release Upon Ordering for 1 Occurrences starting 05/22/2024 End: 04-26-2025 Flexible sigmoidoscopy study COLONOSCOPY DIAGNOSTIC Endoscopy Routine BRBPR (bright red blood per rectum) 1 Occurrences starting 04/26/2024 until 04/26/[address] [facility] Comment on above: 1 Occurrences starting 04/26/2024 until 04/26/2025 Hepatitis A virus Ab [Presence] in Serum by Immunoassay [facility] HFE gene mutations f ound [Identifier] in Blood or Tissue by Molecular genetics method Nominal [facility] Homogenous nuclear A b pattern [Titer] in Serum [facility] Human papilloma viru s DNA [Presence] in Unspecified specimen by Probe with amplification HPV DNA probe, amplified Microbiology Routine Well woman exam with routine gynecological exam Ordered: 03/20/2024 [facility] Comment on above: Ordered: 03/20/2024 IgG [Mass/volume] in Serum or Plasma [facility] Lipoprotein a [Moles/volume] in Serum or Plasma [facility] Liver ultrasound attenuation by transient elastography DDI VIBRATION CONTROLLED TRANSIENT ELASTOGRAPHY (VCTE) Endoscopy Routine Elevated LFTs Ordered: 04/26/[address] [facility] Comment on above: Ordered: 04/26/2024 Mitochondria M2 IgG Ab [Units/volume] in Serum [facility] Neisseria gonorrhoea e DNA [Presence] in Unspecified specimen by SHEILA with probe detection Neisseria gonorrhea DNA probe, direct Lab Routine Pain in female genitalia on intercourse Cystitis Ordered: 06/25/2024 [facility] Comment on above: Ordered: 06/25/2024 Nuclear Ab [Titer] i n Serum [facility] OUTSIDE VENDOR CARDI AC OUTPATIENT EXTENDED RHYTHM RECORDING (WITHOUT TELEMETRY) OUTSIDE VENDOR CARDIAC OUTPATIENT EXTENDED RHYTHM RECORDING (WITHOUT TELEMETRY) Holter Routine Syncope, unspecified syncope type Ordered: 12/19/[address] [facility] Comment on above: Ordered: 12/19/2023 End: 12-18-2024 STRESS ECHO TREADMILL STRESS ECHO TREADMILL Cardiology Routine Syncope, unspecified syncope type 1 Occurrences starting 12/19/2023 until 12/18/2024 [facility] Work Phone: Comment on above: 1 Occurrences starting 12/19/2023 until 12/18/2024 SURESWAB(R) ADVANCED VAGINITIS PLUS, TMA SURESWAB(R) ADVANCED VAGINITIS PLUS, TMA Pathology and Cytology Routine Pain in female genitalia on intercourse Cystitis Ordered: 06/25/2024 [facility] Work Phone: Comment on above: Ordered: 06/25/[address] [facility] Comment on above: Release Upon Ordering for 1 Occurrences starting 05/22/2024, 1 completed End: 07-14-2023 Us abdominal real time w/image limited US ABD RT UPPER QUADRANT Radiology Routine Liver lesion 1 Occurrences starting 06/14/2022 until 07/14/2023 [facility] Work Phone: Comment on above: 1 Occurrences starting 06/14/2022 until 07/14/2023 [facility] Immunizations Immunization Date Immunization Notes Care Provider Bernadette vickers 11-02-2021 SARS-CoV-2 mRNA (sxraascamns-nfbu-lmuze se) vaccine Madhuri MISHRA [facility] 04-29-2021 SARS-CoV-2 (COVID-19 ) mRNA BNT-162b2 vax Madhuri MISHRA [facility] 03-03-2021 SARS-CoV-2 (COVID-19 ) mRNA BNT-162b2 vax Madhuri MISHRA [facility] Comment on above: Result Comment: 2022: TPVAL 02-09-2021 influenza virus vaccine, unspecified formulation Madhuri MISHRA [facility] 02-09-2021 influenza, injectabl e, quadrivalent, preservative free Zhen Burgess PT Work Phone: [facility] 03-16-2020 influenza virus vaccine, unspecified formulation Madhuri MISHRA [facility] 03-16-2020 Influenza, injectabl e, Madin [place] Canine Kidney, preservative free, quadrivalent Zhen Blackston PT Work Phone: [facility] 01-08-2018 influenza virus vaccine, unspecified formulation Madhuri MISHRA [facility] 01-08-2018 influenza, injectabl e, quadrivalent, contains preservative Zhen Blackston PT Work Phone: [facility] 01-08-2018 influenza, injectabl e, quadrivalent, preservative free Zhen Blackston PT Work Phone: [facility] 02-01-2017 influenza virus vaccine, unspecified formulation Madhuri MISHRA [facility] 02-01-2017 Influenza, injectabl e, Madin [place] Canine Kidney, preservative free, quadrivalent Zhen Blackston PT Work Phone: [facility] 03-25-2016 influenza virus vaccine, unspecified formulation Madhuri MISHRA [facility] 03-25-2016 influenza, injectabl e, quadrivalent, preservative free Zhen Blackston PT Work Phone: [facility] 02-05-2010 tetanus toxoid, redu rolanda diphtheria toxoid, and acellular pertussis vaccine, adsorbed Madhuri MISHRA [facility] 01-05-2007 hepatitis B vaccine, pediatric or pediatric/adolescent dosage Madhuri MISHRA [facility] 11-02-2006 hepatitis B vaccine, pediatric or pediatric/adolescent dosage Madhuri MISHRA [facility] 11-02-2006 HPV, unspecified formulation Madhuri MISHRA [facility] 11-02-2006 human papilloma viru s vaccine, quadrivalent Zhen Burgess PT Work Phone: [facility] 11-02-2006 meningococcal ACWY vaccine, unspecified formulation Madhuricecille MISHRA [facility] 11-02-2006 meningococcal polysaccharide (groups A, C, Y and W-135) diphtheria toxoid conjugate vaccine (MCV4P) Zhen Burgess PT Work Phone: [facility] 02-20-1998 hepatitis B vaccine, pediatric or pediatric/adolescent dosage Madhuri MISHRA [facility] 12-28-1993 diphtheria, tetanus toxoids and pertussis vaccine Zhen Burgess PT Work Phone: [facility] 12-07-1992 diphtheria, tetanus toxoids and pertussis vaccine Zhen Burgess PT Work Phone: [facility] 12-07-1992 measles, mumps and rubella virus vaccine Madhuricecille MISHRA [facility] 12-07-1992 trivalent poliovirus vaccine, live, oral Zhen Burgess PT Work Phone: [facility] 06-09-1992 diphtheria, tetanus toxoids and pertussis vaccine Zhen Burgess PT Work Phone: [facility] 06-09-1992 measles, mumps and rubella virus vaccine Madhuricecille MISHRA [facility] 06-09-1992 trivalent poliovirus vaccine, live, oral Zhen Burgess PT Work Phone: [facility] 10-31-1990 varicella virus vaccine Zi garciaannabel MISHRA [facility] 06-20-1990 diphtheria, tetanus toxoids and pertussis vaccine Zhen Burgess PT Work Phone: [facility] 05-21-1990 trivalent poliovirus vaccine, live, oral Zhen Burgess PT Work Phone: [facility] 01-10-1989 trivalent poliovirus vaccine, live, oral Zhen Burgess PT Work Phone: [facility] NEGATED: Highlighted row has not occurred!05-01-2019 influenza virus vaccine, live, attenuated, for intranasal use Mdahuri MISHRA [facility] NEGATED: Highlighted row has not occurred!04-03-2019 influenza virus vaccine, live, attenuated, for intranasal use Madhuri MISHRA [facility] Payers Date Payer Category Payer Private Health Insurance [employer] [id number] 2022 Self-pay [id number] 2020 Unknown [id number] [id number]. [id number] 1988 Unknown [id number] 2.16.840.1.805478.3.579.2. 182 1988 Unknown [id number] 2.16.840.1.278950.3.579.2. 593 1988 Unknown [id number] 2.16.840.1.749860.3.579.2. 593 1988 Unknown [id number] 2.16840.1.287695.3.579.2. 593 1988 Unknown [id number] 2.16.840.1.418009.3.579.2. 593 1988 Unknown [id number] 2.16.840.1.106115.3.579.2. 593 1988 Unknown [id number] 2.16840.1.246271.3.579.2. 593 1988 Unknown [id number] 2.16840.1.153558.3.579.2. 593 1988 Unknown [id number] 2.16840.1.612659.3.579.2. 593 1988 Unknown [id number] 2.16840.1.375947.3.579.2. 593 1988 Unknown [id number] 2.16840.1.286546.3.579.2. 593 1988 Unknown [id number] 2.16840.1.524409.3.579.2. 593 1988 Unknown [id number] 2.16840.1.924070.3.579.2. 593 1988 Unknown [id number] 2.16840.1.770457.3.579.2. 593 1988 Unknown [id number] 2.16840.1.733655.3.579.2. 177 1988 Unknown [id number] 2.16840.1.359675.3.579.2. 727 1988 Unknown [id number] 2.16840.1.127035.3.579.2. 727 1988 Unknown [id number] 2.16840.1.394817.3.579.2. 1259 1988 Unknown [id number] 2.16840.1.506030.3.579.2. 1258 1988 Unknown [id number] 2.16.840.1.553089.3.579.2. 1258 1988 Unknown [id number] 2.16.840.1.922940.3.579.2. 1258 1988 Unknown [id number] 2.16840.1.184484.3.579.2. 1258 1988 Unknown [id number] 2.16840.1.940916.3.579.2. 1258 1988 Unknown [id number] 2.840.1.724366.3.579.2. 1258 1988 Unknown [id number] 2.840.1.351584.3.579.2. 1258 1988 Unknown [id number] 2.0.1.055398.3.579.2. 1258 1988 Unknown [id number] 2.840.1.002923.3.579.2. 1258 1988 Unknown [id number] 2.840.1.058349.3.579.2. 1258 1988 Unknown [id number] 2.840.1.920793.3.579.2. 1258 1988 Unknown [id number] 2.840.1.956308.3.579.2. 1258 1988 Unknown [id number] 2.16840.1.534621.3.579.2. 1258 1988 Unknown [id number] 2.840.1.048883.3.579.2. 1258 1988 Unknown [id number] 2.16840.1.983939.3.579.2. 1258 1988 Unknown [id number] 2.16840.1.874319.3.579.2. 1258 1988 Unknown [id number] 2.16840.1.199802.3.579.2. 1258 1988 Unknown [id number] 2.16840.1.698527.3.579.2. 1258 1988 Unknown [id number] 2.16840.1.921890.3.579.2. 1258 1988 Unknown [id number] 2.840.1.968365.3.579.2. 1258 1988 Unknown [id number] 2.16840.1.115205.3.579.2. 1258 1988 Unknown [id number] 2.840.1.718670.3.579.2. 1258 1988 Unknown [id number] 2.840.1.808706.3.579.2. 1258 1988 Unknown [id number] 2..1.211971.3.579.2. 1258 1988 Unknown [id number] 2.840.1.308012.3.579.2. 1258 1988 Unknown [id number] 2..1.319511.3.579.2. 1258 1988 Unknown [id number] 2..1.215275.3.579.2. 1258 1988 Unknown [id number] 2..1.720844.3.579.2. 1258 1988 Unknown [id number] 2.840.1.290385.3.579.2. 1258 1988 Unknown [id number] 2.840.1.115848.3.579.2. 1258 1988 Unknown [id number] 2.840.1.433593.3.579.2. 1258 1988 Unknown [id number] 2.840.1.691299.3.579.2. 1258 1988 Unknown [id number] 2.840.1.932731.3.579.2. 1259 1988 Unknown [id number] 2.16.840.1.211520.3.579.2. 1259 1959 Unknown [id number] Unknown 100 [id number] Unknown [id number] 2.16.840.1.651650.3.579.2. 531 Unknown [id number] 2.16.840.1.760682.3.579.2. 531 Social History Date Type Detail Facility Tobacco smoking stat us [facility] Unknown if ever smoked [facility] Work Phone: Start: 1990 Sex Assigned At Female [facility] Start: 03-28-2019 End: 05-27-2022 Tobacco smoking status OHIS Never smoked tobacco [facility] Start: 05-27-2022 End: 05-01-2023 Tobacco use and exposure Smokeless tobacco non-user [facility] Start: 05-27-2022 End: 07-04-2024 Alcohol intake Current drinker of alcohol (finding) [facility] Start: 03-28-2019 Alcohol Comment socially [facility] Start: 1990 Sex Assigned At Not on file [facility] Start: 11-02-2022 End: 05-09-2024 Sex Assigned At [facility] Start: 06-29-2022 End: 05-01-2023 Tobacco smoking status Ex-smoker (finding) [facility] Tobacco smoking status Never [facility] Start: 11-02-2022 End: 05-09-2024 History of Social function [facility] Start: 06-08-2021 Gender identity Identifies as female gender (finding) [facility] Start: 11-16-2021 End: 11-26-2021 Exposure to SARS-CoV-2 (event) Not sure [facility] History of tobacco use Current smoker [facility] Within the last year , have you been afraid of your partner or ex-partner? No [facility] Do you belong to any clubs or organizations such as buddhist groups, unions, fraternal or athletic groups, or [...] 12-28-2023 Functional Status N/A [facility] 06-30-2022 Functional Status N/A [facility] Clinical Notes 05-03-2022 to 07-04-2024 Giovani Hagen MD - 07/04/2024 3:37 PM EDTRolamide Hagen MD - 07/04/2024 3:30 PM EDTMhortencia Fraire DPM FACHAL - 07/03/2024 2:20 PM EDJASON Cabrera - 06/26/2024 2:50 PM ESTPatient Instructions Note Date & Type Note Facility 07-04-2024 History of Present illness Narrative Associated Problem(s): Anxiety Patient's Medicine is effective at controlling symptoms at current dose and frequency. PDMP reviewed with no evidence of overuse and abuse D/W patient to avoid use of benzodiazepines when consuming alcohol Advised against operating heavy machinery and driving long distances while on medicines. Images from the original note were not included. Subjective Patient ID: Orion Harper is a 33 y.o. female who presents for Anxiety. Pt states xanax not really working anymore Had surgery on right foot. A lot has to do with going in office. Therapist Count trees and onlines Has to be an even number Anxiety Presents for follow-up visit. Symptoms include nervous/anxious behavior and panic. Symptoms occur most days. The severity of symptoms is moderate. The quality of sleep is fair. Nighttime awakenings: occasional. Compliance with medications is 76-100%. Current Outpatient Medications on File Prior to [...] 60 tablet 0 amphetamine-dextroamphetamine XR (Adderall XR) 10 MG 24 hr capsule Take 1 capsule (10 mg) by mouth in the morning. Do not crush or chew. Take with the 30mg tablet. 30 capsule 0 amphetamine-dextroamphetamine XR (Adderall XR) 30 MG 24 hr capsule Take 1 capsule (30 mg) by mouth Daily Do not crush or chew. Take with the 10mg daily 30 capsule 0 cephalexin (Keflex) 250 MG capsule TAKE 1 CAPSULE BY MOUTH AFTER INTERCOURSE TO PREVENT UTI escitalopram (Lexapro) 20 MG tablet Take 1.5 tablets (30 mg) by mouth in the morning. 45 tablet 2 montelukast (Singulair) 10 MG tablet Take 1 tablet (10 mg) by mouth at bedtime 30 tablet 11 phentermine (Adipex-P) 37.5 MG tablet Take 37.5 mg by mouth in the morning. Take before meals. Vraylar 4.5 MG capsule TAKE 1 CAPSULE BY MOUTH EVERY DAY 30 capsule 5 Current Facility-Administered Medications on File Prior to Visit Medication Dose Route Frequency Provider Last Rate Last Admin semaglutide (Ozempic) injection 0.25 mg 0.25 mg Subcutaneous Weekly Rugen M Hieu, MD I have reviewed and reconciled the history and medication list with the patient today. Allergies Allergen Reactions Cat Dander Anaphylaxis Iodinated Contrast Media Hives Iodine Itching and Swelling Omnipaque 300: Patient experienced itching on her neck and left side of her face. Also, pt complained of tongue feeling itchy and feels like something is stuck in her throat . Patient received diphenhydramine (Benadryl) Social History Tobacco Use Smoking status: Former [...] (CMS/HCC) Past Surgical History: Procedure Laterality Date ANKLE SURGERY Right 2024 SECTION, LOW TRANSVERSE 2012,2013, 2016 CHOLECYSTECTOMY 03/23/2023 Laporoscopic COLONOSCOPY 05/11/2018 Dr. Padgett COLONOSCOPY 05/28/[address] [facility] [address] CT ANGIOGRAM CHEST 07/30/2018 CT ANGIOGRAM CHEST [facility] EGD 06/30/2022 Normal hypopharynx, normal esophagus, gastritis, Non bleeding gastric ulcers. Normal examined duodenum GALLBLADDER SURGERY 03/2023 HYSTERECTOMY PAP SMEAR 04/15/2021 normal PARTIAL HYSTERECTOMY 05/2016 PELVIC LAPAROSCOPY 02/10/2023 Visit Vitals LMP (LMP Unknown) Comment: partial hysterectomy 05/2016 OB Status Hysterectomy Smoking Status Former Review of Systems Psychiatric/Behavioral: The patient is nervous/anxious. Objective Physical Exam Assessment/Plan Problem List Items Addressed This Visit None No follow-ups on file. documented in this encounter [facility] 07-03-2024 History of Present illness Narrative Patient: Orion Mcclellan Meredith : 1990 PCP: Giovani Hagen MD SUBJECTIVE This is a 33 y.o. female that presents today 2 weeks s/p right lateral ankle stabilization with peroneal tendon repair Pt denies n/f/v/c and has minimal pain to post op site. Pt states that they have been keeping dressing dry and intact and have been nonweightbearing to post op foot Pt presents today for follow up. She states she fell and landed on her ankle postoperatively. She is postop week 4 Allergies: Allergies Allergen Reactions Cat Dander Anaphylaxis [...] tablet, Rfl: 0 amphetamine-dextroamphetamine XR (Adderall XR) 10 MG 24 hr capsule, Take 1 capsule (10 mg) by mouth in the morning. Do not crush or chew. Take with the 30mg tablet., Disp: 30 capsule, Rfl: 0 amphetamine-dextroamphetamine XR (Adderall XR) 30 MG 24 hr capsule, Take 1 capsule (30 mg) by mouth Daily Do not crush or chew. Take with the 10mg daily, Disp: 30 capsule, Rfl: 0 cephalexin (Keflex) 250 MG capsule, TAKE 1 CAPSULE BY MOUTH AFTER INTERCOURSE TO PREVENT UTI, Disp: , Rfl: escitalopram (Lexapro) 20 MG tablet, Take 1.5 tablets (30 mg) by mouth in the morning., Disp: 45 tablet, Rfl: 2 montelukast (Singulair) 10 MG tablet, Take 1 tablet (10 mg) by mouth at bedtime, Disp: 30 tablet, Rfl: 11 phentermine (Adipex-P) 37.5 MG tablet, Take 37.5 mg by mouth in the morning. Take before meals., Disp: , Rfl: Vraylar 4.5 MG capsule, TAKE 1 CAPSULE BY MOUTH EVERY DAY, Disp: 30 capsule, Rfl: 5 Current Facility-Administered Medications: semaglutide (Ozempic) injection 0.25 mg, 0.25 mg, Subcutaneous, Weekly, Giovani Hagen MD ROS: General: denies fever, chills, fatigue, malaise OBJECTIVE LE EXAM: Derm: Sutures intact to right foot with negative erythema, negative drainage, minimal edema with negative clinical signs of infection. Vascular: Palpable pedal pulses to right foot Neuro: Gross sensation intact to right foot. Musculoskeletal: Negative pain on palpation to right calf. Ortho: Ankle range of motion less than 10 degrees of dorsiflexion at right ankle joint. Mild swelling noted at the lateral ankle ligament complex secondary to the fall. Three views were taken today AP/MORT/LAT Ankle: No fractures or dislocations seen joint in good position and alignment ASSESSMENT 1. Peroneal tendon tear, right, initial encounter 2. Right foot pain PLAN Educated the patient on radiographic findings no fracture dislocations noted place the patient into a well-padded Coronel compressive dressing she is to transition to weight-bearing in a pneumatic walking boot follow up with me in 2 JASON Conti documented in this encounter [facility] 06-26-2024 History of Present illness Narrative Patient: Orion Harper : 1990 PCP: Giovani Hagen MD SUBJECTIVE This is a 33 y.o. female that presents today 2 weeks s/p right lateral ankle stabilization with peroneal tendon repair Pt denies n/f/v/c and has minimal pain to post op site. Pt states that they have been keeping dressing dry and intact and have been nonweightbearing to post op foot Pt presents today for follow up. Allergies: Allergies Allergen Reactions Cat Dander Anaphylaxis [...] tablet, Rfl: 0 amphetamine-dextroamphetamine XR (Adderall XR) 10 MG 24 hr capsule, Take 1 capsule (10 mg) by mouth in the morning. Do not crush or chew. Take with the 30mg tablet., Disp: 30 capsule, Rfl: 0 amphetamine-dextroamphetamine XR (Adderall XR) 30 MG 24 hr capsule, Take 1 capsule (30 mg) by mouth Daily Do not crush or chew. Take with the 10mg daily, Disp: 30 capsule, Rfl: 0 cephalexin (Keflex) 250 MG capsule, TAKE 1 CAPSULE BY MOUTH AFTER INTERCOURSE TO PREVENT UTI, Disp: , Rfl: escitalopram (Lexapro) 20 MG tablet, Take 1.5 tablets (30 mg) by mouth in the morning., Disp: 45 tablet, Rfl: 2 montelukast (Singulair) 10 MG tablet, Take 1 tablet (10 mg) by mouth at bedtime, Disp: 30 tablet, Rfl: 11 ondansetron ODT (Zofran-ODT) 4 MG disintegrating tablet, Take 1 tablet (4 mg) by mouth every 6 (six) hours if needed for nausea or vomiting, Disp: 30 tablet, Rfl: 2 phentermine (Adipex-P) 37.5 MG tablet, Take 37.5 mg by mouth in the morning. Take before meals., Disp: , Rfl: Vraylar 4.5 MG capsule, TAKE 1 CAPSULE BY MOUTH EVERY DAY, Disp: 30 capsule, Rfl: 5 Current Facility-Administered Medications: semaglutide (Ozempic) injection 0.25 mg, 0.25 mg, Subcutaneous, Weekly, Giovani Hagen MD ROS: General: denies fever, chills, fatigue, malaise OBJECTIVE LE EXAM: Derm: Sutures intact to right foot with negative erythema, negative drainage, minimal edema with negative clinical signs of infection. Vascular: Palpable pedal pulses to right foot Neuro: Gross sensation intact to right foot. Musculoskeletal: Negative pain on palpation to right calf. Ortho: Ankle range of motion less than 10 degrees of dorsiflexion at right ankle joint. ASSESSMENT 1. Peroneal tendon tear, right, initial encounter 2. Right ankle instability PLAN Patient to keep dry sterile dressing intact and keep dressing dry with nonweightbearing weightbearing. Patient may take anti-inflammatories as needed for pain. May continue with ice to foot as needed p.r.n. Re-application of Coronel compressive dressing. Continue rest ice and elevate she is to start 81 mg in his green a day for DVT prophylaxis follow up with me in 1 week for reassessment Milton Fraire DPM FACFAS documented in this encounter [facility] 06-25-2024 History of Present illness Narrative Reason for Appointment: Patient ID: Orion Harper is a 33 y.o. female who presents for Painful [place] and bleeding with intercourse Patient presents today for Consult appointment. MEDICATIONS Current Outpatient Medications Medication Instructions albuterol HFA 90 mcg/act inhaler INHALE 2 PUFFS INTO THE LUNGS EVERY 6 HOURS NEEDED FOR 30 DAYS albuterol 2.5 mg, Nebulization, Every 6 hours PRN ALPRAZolam (XANAX) 0.5 mg, Oral, 2 times daily (12/07) amphetamine-dextroamphetamine XR (Adderall XR) 10 MG 24 hr capsule 10 mg, Oral, Every morning, Do not crush or chew. Take with the 30mg tablet amphetamine-dextroamphetamine XR (Adderall XR) 30 MG 24 hr capsule 30 mg, Oral, Daily, Do not crush or chew. Take with the 10mg daily cephalexin (Keflex) 250 MG capsule TAKE 1 CAPSULE BY MOUTH AFTER INTERCOURSE TO PREVENT UTI escitalopram (LEXAPRO) 30 mg, Oral, Every morning montelukast (SINGULAIR) 10 mg, Oral, Nightly ondansetron ODT (ZOFRAN-ODT) 4 mg, Oral, Every 6 hours PRN phentermine (ADIPEX-P) 37.5 mg, Oral, Daily before breakfast Vraylar 4.5 MG capsule 1 capsule, Oral, Daily ALLERGIES Allergies Allergen Reactions Cat Dander Anaphylaxis Iodinated [...] system 09/23/2022 Anxiety 09/23/2022 Attention deficit hyperactivity disorder (ADHD), predominantly inattentive type ([facility]) 09/23/2022 Bipolar disorder, in partial remission, most recent episode manic ([facility]) 09/23/2022 Diverticular disease of colon 09/23/2022 Dysphagia 09/23/2022 Elevated liver enzymes 09/23/2022 Exercise induced bronchospasm ([facility]) 09/23/2022 Finding of above normal blood pressure 09/23/2022 History of hysterectomy 09/23/2022 Hyperglycemia 09/23/2022 Hypersexuality 09/23/2022 Insomnia 09/23/2022 Irritable bowel syndrome with constipation 09/23/2022 Mild intermittent asthma without complication ([facility]) 09/23/2022 Mood swings 09/23/2022 Nephrolithiasis 09/23/2022 Nonalcoholic steatohepatitis (ENGLISH) 09/23/2022 Other specified abnormal findings of blood chemistry 09/23/2022 Poor concentration 09/23/2022 Sacroiliitis, not elsewhere classified ([facility]) 09/23/2022 Skin pain 09/23/2022 Thyroid enlargement ([facility]) 09/23/2022 Atherosclerosis of aorta ([facility]) 06/16/2020 Atherosclerosis of both carotid arteries 11/16/2020 Atherosclerosis of coronary artery without angina pectoris ([facility]) 05/18/2021 Gastroesophageal reflux disease without esophagitis 07/09/2019 Gastroparesis 11/02/2022 Non-refractory idiopathic generalized epilepsy ([facility]) 11/22/2019 Osteoarthritis of knee 06/14/2019 Hypercholesterolemia ([facility]) 07/01/2021 Recurrent UTI 12/12/2022 Vitamin D deficiency 05/16/2019 Dizziness 12/13/2022 Acute nonintractable headache 12/13/2022 History of COVID-19 02/06/2023 Overweight 02/06/2023 Acute biliary pancreatitis without infection or necrosis 03/21/2023 Calculus of gallbladder without cholecystitis without obstruction 03/23/2023 Cholecystitis 04/18/2023 Encounter for postoperative care 04/18/2023 History of acute pancreatitis 04/18/2023 History of cholecystectomy 04/18/2023 Cough 04/18/2023 Anaphylactic syndrome 04/18/2023 PTSD (post-traumatic stress disorder) ([facility]) 02/24/2015 Tinea 10/03/2023 Weight gain 10/03/2023 Glucose intolerance 10/03/2023 Dyshidrosis 10/03/2023 Encounter for well adult exam without abnormal findings 12/04/2023 Cervical radiculopathy 12/26/2023 Obesity (BMI 35.0-39.9 without comorbidity) 02/06/2024 Localized edema 02/06/2024 Injury of right ankle 02/06/2024 Sprain of anterior talofibular ligament of right ankle 04/01/2024 Pain and swelling of left shoulder 04/03/2024 Asthmatic bronchitis with acute exacerbation ([facility]) 04/16/2024 Snoring 04/16/2024 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 All other systems reviewed and are negative. OBJECTIVE Objective: OBGyn Exam Vitals: Estimated body mass index is 34.9 kg/m as calculated from the following: Height as of 06/19/24: 5' 2 . Weight as of this encounter: 190 lb 12.8 oz. BP: 130/78 No LMP recorded (lmp unknown). Patient has had a hysterectomy. ASSESSMENT & PLAN ICD-10-CM 1. Pain in female genitalia on intercourse N94.10 Patient and spouse present for pelvic pain with vaginal bleeding. Pelvic exam performed and pain with bladder swipe. Patient will be given antibiotics for mycoplasma regimen and will also be referred to Urology. Patient voiced that she already sees Urology and has had some past procedures. Will look in referring patient tot [facility]. Patient to use Coconut oil in the interm, as triple antibiotics will not be prescribed as to not cause c-diff again for patient. Patient to RTC for annual and PRN. Documented by Acacia Vigil LPN on behalf of: Darwin Starr DO documented in this encounter [facility] 06-19-2024 History of Present illness Narrative Patient: Orion Harper : 1990 PCP: Giovani Hagen MD SUBJECTIVE This is a 33 y.o. female that presents today 6 days s/p right lateral ankle stabilization with peroneal tendon repair Pt denies n/f/v/c and has minimal pain to post op site. Pt states that they have been keeping dressing dry and intact and have been nonweightbearing to post op foot Pt presents today for follow up. Allergies: Allergies Allergen Reactions Cat Dander Anaphylaxis [...] tablet, Rfl: 0 amphetamine-dextroamphetamine XR (Adderall XR) 10 MG 24 hr capsule, Take 1 capsule (10 mg) by mouth in the morning. Do not crush or chew. Take with the 30mg tablet., Disp: 30 capsule, Rfl: 0 amphetamine-dextroamphetamine XR (Adderall XR) 30 MG 24 hr capsule, Take 1 capsule (30 mg) by mouth Daily Do not crush or chew. Take with the 10mg daily, Disp: 30 capsule, Rfl: 0 cephalexin (Keflex) 250 MG capsule, TAKE 1 CAPSULE BY MOUTH AFTER INTERCOURSE TO PREVENT UTI, Disp: , Rfl: EPINEPHrine (Adrenalin) 0.3 MG/0.3ML injection, Inject 0.3 mL (0.3 mg) into the shoulder, thigh, or buttocks 1 (one) time for 1 dose, Disp: 1 each, Rfl: 2 escitalopram (Lexapro) 20 MG tablet, Take 1.5 tablets (30 mg) by mouth in the morning., Disp: 45 tablet, Rfl: 2 Bxfnkvbxnna-Xfooxdczv-Pmrkpz 100-62.5-25 MCG/ACT aerosol powder , Inhale 1 puff Daily, Disp: 1 each, Rfl: 0 montelukast (Singulair) 10 MG tablet, Take 1 tablet (10 mg) by mouth at bedtime, Disp: 30 tablet, Rfl: 11 ondansetron ODT (Zofran-ODT) 4 MG disintegrating tablet, Take 1 tablet (4 mg) by mouth every 6 (six) hours if needed for nausea or vomiting, Disp: 30 tablet, Rfl: 2 Vraylar 4.5 MG capsule, TAKE 1 CAPSULE BY MOUTH EVERY DAY, Disp: 30 capsule, Rfl: 5 Current Facility-Administered Medications: semaglutide (Ozempic) injection 0.25 mg, 0.25 mg, Subcutaneous, Weekly, Giovani Hagen MD ROS: General: denies fever, chills, fatigue, malaise OBJECTIVE LE EXAM: Derm: Sutures intact to right foot with negative erythema, negative drainage, minimal edema with negative clinical signs of infection. Vascular: Palpable pedal pulses to right foot Neuro: Gross sensation intact to right foot. Musculoskeletal: Negative pain on palpation to right calf. Ortho: Ankle range of motion less than 10 degrees of dorsiflexion at right ankle joint. ASSESSMENT 6 days s/p right peroneal tendon repair with lateral ankle stabilization 1. Peroneal tendon tear, right, initial encounter 2. Right ankle instability 3. Contracture of right ankle PLAN Patient to keep dry sterile dressing intact and keep dressing dry with nonweightbearing weightbearing. Patient may take anti-inflammatories as needed for pain. May continue with ice to foot as needed p.r.n. Re-application of posterior splint to the right leg. Today's procedure is a staged procedure and patient may need further procedures in the future. Prateek Pedraza DPM documented in this encounter [facility] 06-19-2024 Telephone encounter Note OARRS reviewed, Rx sent into patient's pharmacy. [facility] 06-19-2024 Miscellaneous Notes OARRS reviewed, Rx sent into patient's pharmacy. documented in this encounter [facility] 06-12-2024 Telephone encounter Note The prescription has been sent to the pharmacy. Thank you. [facility] 06-12-2024 Miscellaneous Notes The prescription has been sent to the pharmacy. Thank you. documented in this encounter [facility] 06-06-2024 History of Present illness Narrative Associated Problem(s): 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CMS/HCC) Could be situational Associated Problem(s): Bipolar disorder, in partial remission, most recent episode manic (CMS/HCC) Coping skills with counselor Images from the original note were not included. HPI Anxiety Additional comments: Discuss FMLA paperwork Last edited by Monet Motley MA on 06/06/2024 12:09 PM. Subjective Patient ID: Orion Harper is a 33 y.o. female who presents for Anxiety (Discuss FMLA paperwork ). Anxiety is everyday, panic attacks happen once a week, Her BP goes up ,her asthma flares up, very emotional, frustrated , when she has her panic attacks Lots of stressors, mainly home all the time she does work at home, if she goes in public that is when she has her panic attacks or when her dauther has a panic attack Pt will take her xanax but that is not helping much anymore Still taking adipex but this is not helping her Pt also is wanting FMLA paperwork to be filled out Anxiety occurs at home. Overwhelmed. Brain is going fast. Has lots of social anxiety Has lots thoughts can focus Recall back to office. 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 Its in [place]. The drive is a long way 1 hr and 40 minutes. 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 When gets around people doesn't like to be asked questions and doesn't like to be put on the spot. Also is working with teams in [place], and [place]. Bipolar well managed Anxiety Presents for follow-up visit. Symptoms include nervous/anxious behavior and panic. Symptoms occur most days. The severity of symptoms is moderate. The quality of sleep is fair. Nighttime awakenings: occasional. Compliance with medications is 76-100%. Current Outpatient Medications on File Prior to [...] and in the evening 60 tablet 0 cephalexin (Keflex) 250 MG capsule TAKE 1 CAPSULE BY MOUTH AFTER INTERCOURSE TO PREVENT UTI EPINEPHrine (Adrenalin) 0.3 MG/0.3ML injection Inject 0.3 mL (0.3 mg) into the shoulder, thigh, or buttocks 1 (one) time for 1 dose 1 each 2 Aepmcczyarw-Qhclofgoi-Lnqeys 100-62.5-25 MCG/ACT aerosol powder Inhale 1 puff Daily 1 each 0 montelukast (Singulair) 10 MG tablet Take 1 [...] crush or chew. 30 capsule 0 [DISCONTINUED] amphetamine-dextroamphetamine XR (Adderall XR) 30 MG 24 hr capsule Take 1 capsule (30 mg) by mouth Daily Do not crush or chew. 30 capsule 0 [DISCONTINUED] escitalopram (Lexapro) 20 MG tablet TAKE 1 TABLET BY MOUTH EVERY DAY IN THE MORNING 30 tablet 2 No current facility-administered medications on file prior [...] 05/2016 PELVIC LAPAROSCOPY 02/10/2023 Visit Vitals BP 118/82 Pulse 96 Ht 5' 2 Wt 196 lb LMP (LMP Unknown) Comment: partial hysterectomy 05/2016 SpO2 99% BMI 35.85 kg/m OB Status Hysterectomy Smoking Status Former BSA 1.97 m Review of Systems Constitutional: Negative for fever. Psychiatric/Behavioral: Positive for agitation. The patient is nervous/anxious. Objective Physical Exam Constitutional: General: She is not in acute distress. Appearance: Normal appearance. She is obese. HENT: Head: Normocephalic. Neck: Vascular: No carotid bruit. Cardiovascular: Rate and Rhythm: Normal rate and regular rhythm. Pulmonary: Effort: Pulmonary effort is normal. No respiratory distress. Breath sounds: Normal breath sounds. Neurological: General: No focal deficit present. Mental Status: She is alert and oriented to person, place, and time. Psychiatric: Mood and Affect: Mood normal. Assessment/Plan Problem List Items Addressed This Visit Attention deficit hyperactivity disorder (ADHD), predominantly inattentive type (CMS/HCC) Relevant Medications amphetamine-dextroamphetamine XR (Adderall XR) 30 MG 24 hr capsule amphetamine-dextroamphetamine XR (Adderall XR) 10 MG 24 hr capsule Bipolar disorder, in partial remission, most recent episode manic (CMS/HCC) Coping skills with counselor Relevant Medications amphetamine-dextroamphetamine XR (Adderall XR) 10 MG 24 hr capsule escitalopram (Lexapro) 20 MG tablet 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CMS/HCC) - Primary Could be situational Relevant Medications amphetamine-dextroamphetamine XR (Adderall XR) 10 MG 24 hr capsule Follow up in about 4 weeks (around 07/04/2024). documented in this encounter [facility] 05-29-2024 History of Present illness Narrative Reason for Appointment: Patient ID: Orion Harper is a 33 y.o. female who presents for Post-op Visit Patient presents today for 1 Week Post Op Follow Up appointment. MEDICATIONS Current Outpatient Medications Medication Instructions albuterol HFA 90 mcg/act inhaler INHALE 2 PUFFS INTO THE LUNGS EVERY 6 HOURS NEEDED FOR 30 DAYS albuterol 2.5 mg, Nebulization, Every 6 hours PRN ALPRAZolam (XANAX) 0.5 mg, Oral, 2 times daily (12/07) amphetamine-dextroamphetamine XR (Adderall XR) 30 MG 24 hr capsule 30 mg, Oral, Daily, Do not crush or chew. cephalexin (Keflex) 250 MG capsule TAKE 1 CAPSULE BY MOUTH AFTER INTERCOURSE TO PREVENT UTI EPINEPHrine (ADRENALIN) 0.3 mg, Intramuscular, Once escitalopram (LEXAPRO) 20 mg, Oral, Every morning [place]-Bqmdkrxay-Pyzxjy 100-62.5-25 MCG/ACT aerosol powder 1 puff, Inhalation, Daily montelukast (SINGULAIR) 10 mg, Oral, Nightly ondansetron ODT (ZOFRAN-ODT) 4 mg, Oral, Every 6 hours PRN phentermine (ADIPEX-P) 37.5 mg, Oral, Daily before breakfast Vraylar 4.5 MG capsule 1 capsule, Oral, Daily ALLERGIES Allergies Allergen Reactions Cat Dander Anaphylaxis Iodinated [...] Elevated liver enzymes 09/23/2022 Exercise induced bronchospasm ([facility]) 09/23/2022 Finding of above normal blood pressure 09/23/2022 History of hysterectomy 09/23/2022 Hyperglycemia 09/23/2022 Hypersexuality 09/23/2022 Insomnia 09/23/2022 Irritable bowel syndrome with constipation 09/23/2022 Mild intermittent asthma without complication ([facility]) 09/23/2022 Mood swings 09/23/2022 Nephrolithiasis 09/23/2022 Nonalcoholic steatohepatitis (ENGLISH) 09/23/2022 Other specified abnormal findings of blood chemistry 09/23/2022 Poor concentration 09/23/2022 Sacroiliitis, not elsewhere classified ([facility]) 09/23/2022 Skin pain 09/23/2022 Thyroid enlargement ([facility]) 09/23/2022 Atherosclerosis of aorta ([facility]) 06/16/2020 Atherosclerosis of both carotid arteries 11/16/2020 Atherosclerosis of coronary artery without angina pectoris ([facility]) 05/18/2021 Gastroesophageal reflux disease without esophagitis 07/09/2019 Gastroparesis 11/02/2022 Non-refractory idiopathic generalized epilepsy ([facility]) 11/22/2019 Osteoarthritis of knee 06/14/2019 Hypercholesterolemia ([facility]) 07/01/2021 Recurrent UTI 12/12/2022 Vitamin D deficiency 05/16/2019 Dizziness 12/13/2022 Acute nonintractable headache 12/13/2022 History of COVID-19 02/06/2023 Overweight 02/06/2023 Acute biliary pancreatitis without infection or necrosis 03/21/2023 Calculus of gallbladder without cholecystitis without obstruction 03/23/2023 Cholecystitis 04/18/2023 Encounter for postoperative care 04/18/2023 History of acute pancreatitis 04/18/2023 History of cholecystectomy 04/18/2023 Cough 04/18/2023 Anaphylactic syndrome 04/18/2023 PTSD (post-traumatic stress disorder) ([facility]) 02/24/2015 Tinea 10/03/2023 Weight gain [...] 03/11/2019 Abnormal LFTs Abnormal liver ultrasound 06/15/2022 Ankle sprain 01/10/24 Asthma (CMS/HCC) COVID 03/11/2021 Delayed gastric emptying [...] Exam Constitutional: Appearance: Normal appearance. She is normal weight. HENT: Head: Normocephalic. Cardiovascular: Rate and Rhythm: Normal rate. Pulses: Normal pulses. Pulmonary: Effort: Pulmonary effort is normal. Breath sounds: Normal breath sounds. Abdominal: Palpations: Abdomen is soft. Comments: Incisions look good steri strips in place Musculoskeletal: General: Normal range of motion. Neurological: General: No focal deficit present. Mental Status: She is alert and oriented to person, place, and time. Psychiatric: Mood and Affect: Mood normal. Behavior: Behavior normal. Thought Content: Thought content normal. Judgment: Judgment normal. Vitals and nursing note reviewed. Vitals: Estimated body mass index is 35.81 kg/m as calculated from the following: Height as of 05/15/24: 5' 2 . Weight as of this encounter: 195 lb 12.8 oz. BP: 122/76 No LMP recorded (lmp unknown). Patient has had a hysterectomy. ASSESSMENT & PLAN ICD-10-CM 1. Postop check Z09 Post Op Follow Up: Patient presents today for a postop follow up after having a diagnostic laparoscopy performed at [facility] with Dr. Starr.results was reviewed with the patient and all restrictions have been lifted. Follow Up: Patient is to return to the office for annual exam unless needed otherwise. Documented by VINH Sibley on behalf of: VINH Sibley documented in this encounter [facility] 05-23-2024 Telephone encounter Note ----- Message from [...] and precautions to follow Carol Winn MD [facility] 05-23-2024 Miscellaneous Notes ----- Message from [...] Carol Winn MD documented in this encounter [facility] 05-22-2024 History and physical note SEDATION [...] DATE: May 22, 2024 TIME: 1:[address] [facility] Work Phone: 05-22-2024 History and physical [...] TIME: 1:39 PM documented in this encounter [facility] 05-22-2024 Nurse Note PRE OP LEARNING ASSESSMENT PROCEDURE/SURGERY: GI PROCEDURES: Colonoscopy READINESS TO LEARN COGNITIVE ABILITY: Alert and oriented MOTIVATION TO LEARN: Eager Interested FAMILY SUPPORT: High - Very involved in pt care PATIENT LEARNS BEST BY: Individual Instruction Verbal Instruction FACTORS AFFECTING LEARNING: None PHYSICAL LIMITATIONS AFFECTING LEARNING: None Electronically Signed By: Lindsey Buckley RN In Department: AMBULATORY SURGERY [facility] 05-22-2024 Nurse Note PRE OP LEARNING [...] Department: AMBULATORY SURGERY documented in this encounter [facility] 05-15-2024 Telephone encounter Note Appts cxl, surgery notified to cxl. [facility] 05-15-2024 Miscellaneous Notes Appts cxl, surgery [...] Lydia Kelley DO documented in this encounter [facility] 05-15-2024 History of Present illness Narrative [...] attenuation of the anterior talofibular ligament. The [address] [address] Magnetic Resonance Report Signed Patient: ORION HARPER MR#: [id number] : 1990 Acct:[id number] Age/Sex: 33 / F ADM Date: 03/14/24 Loc: MRI Attending Dr: Laurie Trujillo M.D. Ordering Physician: Laurie Trujillo M.D. Date of Service: 03/14/24 Procedure(s): MR ankle RT wo con Accession Number(s): [id number] cc: GIOVANI HAGEN ; Laurie Trujillo M.D. [place] [address] Patient Name: ORION HARPER MRN: [id number] date: 1990 Sex: F Assigned Patient Location: MRI Current Patient Location: Accession/Order Number: [id number] Exam Date: 03/14/2024 15:04 Report Date: 03/17/2024 [...] THE MORNING, Disp: 30 tablet, Rfl: 2 Xgkrexdjsmd-Izljowhfh-Wjwyvt 100-62.5-25 MCG/ACT aerosol powder , Inhale 1 [...] are palpable bilateral, no edema noted Neuro: [place] 5.07 monofilament intact, vibratory sensation intact Derm: [...] procedure. JASON Conti documented in this encounter [facility] 05-10-2024 Telephone encounter Note Pt was seen. OARRS reviewed, Rx sent into patient's pharmacy. [facility] 05-10-2024 Miscellaneous Notes Pt was seen. OARRS reviewed, Rx sent into patient's pharmacy. Patient has appointment today. documented in this encounter [facility] 05-09-2024 History of Present illness Narrative Images [...] DAY IN THE MORNING 30 tablet 2 Oxfrmnmmgii-Tsauhdlvq-Yxcksj 100-62.5-25 MCG/ACT aerosol powder Inhale 1 puff [...] of spine - Primary Relevant Medications HYDROcodone-acetaminophen ([place]) 5-325 MG tablet Other Relevant Orders Ambulatory referral to Pain Medicine No follow-ups on file. documented in this encounter [facility] 05-09-2024 Telephone encounter Note Patient has appointment today. [facility] 05-08-2024 History of Present illness Narrative Patient: Orion Mcclellan Meredith : 1990 PCP: Giovani Hagen MD SUBJECTIVE [...] cervical cancer screening 04/20/2022 neg Post depression ([facility]) Medications: Current Outpatient Medications: albuterol (2.5 MG/3ML) [...] THE MORNING, Disp: 30 tablet, Rfl: 2 Seciztklecq-Rghincdvs-Rwnujp 100-62.5-25 MCG/ACT aerosol powder , Inhale 1 [...] 0 min Stress: Stress Concern Present (04/18/2023) [employer] - Occupational Stress Questionnaire Feeling of Stress : Very much Social Connections: Moderately Integrated (04/18/2023) Social Connection and Isolation Panel [NHANES] Frequency of Communication with Friends and Family: Three times a week Frequency of Social Gatherings with Friends and Family: Twice a week Attends Rastafari Services: Never Active Member of Clubs or [...] base of the right foot MRI: [place] [address] Magnetic Resonance Report Signed Patient: ORION HARPER MR#: [id number] : 1990 Acct:[id number] Age/Sex: 33 / F ADM Date: 03/14/24 Loc: MRI Attending Dr: Laurie Trujillo M.D. Ordering Physician: Laurie Trujillo M.D. Date of Service: 03/14/24 Procedure(s): MR ankle RT wo con Accession Number(s): [id number] cc: GIOVANI HAGEN ; Laurie Trujillo M.D. The [place] [id number] Patient Name: ORION HARPER MRN: [facility]:[id number] date: 1990 Sex: F Assigned Patient Location: MRI Current Patient Location: Accession/Order Number: [id number] Exam Date: 03/14/2024 15:04 Report Date: 03/17/2024 [...] Prateek Pedraza DPM documented in this encounter [facility] 05-06-2024 Telephone encounter Note Echo was faxed to Anne-Marie @ [phone] & scanned into outside ep. Patient is having a procedure. Criss Mccrary [facility] 05-06-2024 Miscellaneous Notes Echo was faxed to Anne-Marie @ [phone] & scanned into outside ep. Patient is having a procedure. Criss Mccrary documented in this encounter [facility] 05-03-2024 Telephone encounter Note Patient has [...] at that time. Lydia Kelley DO [facility] 05-02-2024 Note HNO ID: [id number] Author: ZEHRA GRAY PA-C Service: ? Author Type: Physician V Belt Skiver Type: Progress Notes Filed: 05/02/2024 11:34 Note [...] and referral to hepatology. Zehra Gray PA-C [facility] Fibroscan Fibrosis Risk <7 kPA = F0-F2 [...] Int J Clin Exp Med. 2015 Jan 15;8(10):75583-17. PMID: [id number]; PMCID: [id number]. Ruthann Bob, Juan MEEK, Rico M, Cosmo F, Tawnya J, Everardo O, Leyla F, Franci M, Alejandro G, Dorie A, Gianna E, Leyla L, French G, Kashmir A, Vicente U, Jodi S, Franc P, Max V, de Kole V, Leena M, Neo MARIE. Refining the [place]aveno elastography criteria for the definition of compensated advanced chronic liver disease. J Hepatol. 2020;74(5):4636-4523. doi: 10.1016/j.jhep.2020.11.050. Epub 2019Apr 01. PMID: 94289290. Izabel Bob, Chastity Moran, Martha Bob, Xiao Bob, Joon S, Nuria Roth, Trevin D, Trixie Kendrick. AASLD practice guidance on the clinical assessment and management of nonalcoholic fatty liver disease. Hepatology. 2022;77(5):7173-2048. doi:10.1097/HEP.[id number] [facility] 05-02-2024 History of Present illness Narrative [...] Y, Inocente Q, Glynn T, Gifty J, Renard H, Balaji T. Controlled attenuation parameter for assessment of hepatic steatosis grades: a diagnostic meta-analysis. Int J Clin Exp Med. 2015 Feb 05;8(10):12654-86. PMID: 78387344; PMCID: [id number]. Ruthann Bob, Juan MEEK, Rico M, Cosmo F, Tawnya J, Everardo O, Leyla F, Franci M, Alejandro G, Dorie A, Gianna E, Leyla L, French G, Kashmir A, Vicente U, Jodi S, Franc P, Max V, Last V, Leena M, Neo MARIE. Refining the Baveno elastography criteria for the definition of compensated advanced chronic liver disease. J Hepatol. 2020;74(5):6171-4625. doi: 10.1016/j.jhep.2020.11.050. Epub 2019Apr 01. PMID: 56081554. Izabel Bob, Chastity Moran, Martha Bob, Xiao M, Joon S, Nuria Roth, Trevin Roth, Trixie Kendrick. AASLD practice guidance on the clinical assessment and management of nonalcoholic fatty liver disease. Hepatology. 2022;77(5):8109-1535. doi:10.1097/HEP.[id number] documented in this encounter [facility] 04-30-2024 History of Present illness Narrative [...] on 05/23/[address] Starr at [facility]. MEDICATIONS Current Outpatient Medications Medication Instructions albuterol [...] escitalopram (LEXAPRO) 20 mg, Oral, Every morning Eyuirxbclwl-Uvvhtwlqe-Tgknrt 100-62.5-25 MCG/ACT aerosol powder 1 puff, Inhalation, [...] Attention deficit hyperactivity disorder, predominantly inattentive type ([facility]/HCC) 09/23/2022 Bipolar disorder, in partial remission, most recent episode manic ([facility]/HCC) 09/23/2022 Diverticular disease of colon 09/23/2022 Dysphagia 09/23/2022 Elevated liver enzymes 09/23/2022 Exercise induced bronchospasm ([facility]/HCC) 09/23/2022 Finding of above normal blood pressure 09/23/2022 History of hysterectomy 09/23/2022 Hyperglycemia 09/23/2022 Hypersexuality 09/23/2022 Insomnia 09/23/2022 Irritable bowel syndrome with constipation 09/23/2022 Mild intermittent asthma without complication ([facility]/HCC) 09/23/2022 Mood swings 09/23/2022 Nephrolithiasis 09/23/2022 Nonalcoholic steatohepatitis (ENGLISH) 09/23/2022 Other specified abnormal findings of blood chemistry 09/23/2022 Poor concentration 09/23/2022 Sacroiliitis, not elsewhere classified ([facility]) 09/23/2022 Skin pain 09/23/2022 Thyroid enlargement ([facility]) 09/23/2022 Atherosclerosis of aorta ([facility]) 06/16/2020 Atherosclerosis of both carotid arteries 11/16/2020 Atherosclerosis of coronary artery without angina pectoris ([facility]) 05/18/2021 Gastroesophageal reflux disease without esophagitis 07/09/2019 Gastroparesis 11/02/2022 Non-refractory idiopathic generalized epilepsy ([facility]) 11/22/2019 Osteoarthritis of knee 06/14/2019 Hypercholesterolemia ([facility]) 07/01/2021 Recurrent UTI 12/12/2022 Vitamin D deficiency 05/16/2019 Dizziness 12/13/2022 Acute nonintractable headache 12/13/2022 History of COVID-19 02/06/2023 Overweight 02/06/2023 Acute biliary pancreatitis without infection or necrosis 03/21/2023 Calculus of gallbladder without cholecystitis without obstruction 03/23/2023 Cholecystitis 04/18/2023 Encounter for postoperative care 04/18/2023 History of acute pancreatitis 04/18/2023 History of cholecystectomy 04/18/2023 Cough 04/18/2023 Anaphylactic syndrome 04/18/2023 PTSD (post-traumatic stress disorder) ([facility]) 02/24/2015 Tinea 10/03/2023 Weight gain 10/03/2023 Glucose intolerance 10/03/2023 Dyshidrosis 10/03/2023 Encounter for well adult exam without abnormal findings 12/04/2023 Cervical radiculopathy 12/26/2023 Obesity (BMI 35.0-39.9 without comorbidity) 02/06/2024 Localized edema 02/06/2024 Injury of right ankle 02/06/2024 Sprain of anterior talofibular ligament of right ankle 04/01/2024 Pain and swelling of left shoulder 04/03/2024 Asthmatic bronchitis with acute exacerbation ([facility]) 04/16/2024 Snoring 04/16/2024 Resolved Ambulatory [...] nursing note reviewed. Exam conducted with a truck driver supervisor present. Vitals: Estimated body mass index is 35.12 kg/m as calculated from the following: Height as of 04/16/: 5' 2 . Weight as of this [...] reviewed, and patient is to proceed [facility]. Follow Up: Patient is to follow up between 1-2 weeks post operative to assess proper healing and recovery from procedure. Documented by Sandy Toribio LPN on behalf of: Darwin Starr DO documented in this encounter [facility] 04-26-2024 History of Present illness Narrative DEPARTMENT [...] she saw Dr. Hylton in [address] [facility]. 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 Hylton who is electronics parts sales representative We discussed seeing endocrinology to help with [...] yearly No CT scan PCP treats with ketanro nadeen flagjr Last episode was in Feb 2022 6. [...] Iliana Mercado PA-C documented in this encounter [facility] 04-26-2024 Note HNO ID: [id number] Author: ILIANA MERCADO PA-C Service: ? Author Type: Physician V Belt Skiver Type: Progress Notes Filed: 04/26/2024 15:02 Note [...] she saw Dr. Hylton in [address] [facility]. 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 Hylton who is electronics parts sales representative We discussed seeing endocrinology to help with [...] I have pers (more content not included)... [facility] 04-26-[facility] Instructions Iliana Mercado PA-C - 04/26/2024 [...] do not hesitate to send me a [employer] message or call. Iliana Mercado PA-C documented in this encounter [facility] 04-26-2024 Note HNO ID: [id number] Author: LYDIA KELLEY, DO Service: ? Author [...] to discuss consent (more content not included)... [facility] 04-26-2024 History of Present illness Narrative [...] Kelley D.O. M.P.H. documented in this encounter [facility] 04-22-2024 Telephone encounter Note Patient states she was seen in office on 04-16 and then later in the week she ended up at the Urgent Care due to her cough. She would like Eva Tom called in for her cough. [facility] 04-22-2024 Miscellaneous Notes Patient states she was seen in office on 04-16 and then later in the week she ended up at the Urgent Care due to her cough. She would like Eva Pearls called in for her cough. documented in this encounter [facility] 04-18-2024 History of Present illness Narrative Images from the original note were not included. [address] , [address] [facility], [address] P: [phone] F: [phone] HPI Historian of HPI: patient Orion Harper [...] tablet; Refill: 0 documented in this encounter [facility] 04-08-2024 Telephone encounter Note For surgical clearance [...] she is unable to do the treadmill [facility] Work Phone: 04-08-2024 Miscellaneous Notes For [...] do the treadmill documented in this encounter [facility] 04-05-2024 Telephone encounter Note Outside ep I have a copy @ my desk Criss Mccrary [facility] 04-05-2024 Miscellaneous Notes Outside ep I have a copy @ my desk Criss Mccrary documented in this encounter [facility] 04-03-2024 History of Present illness Narrative [...] DAY IN THE MORNING 30 tablet 2 Dlnmatpykcq-Pabqggkdn-Toxcwv 100-62.5-25 MCG/ACT aerosol powder INHALE 1 PUFF [...] follow-ups on file. documented in this encounter [facility] 04-02-2024 Telephone encounter Note This 'Ankle Surgery Clearance' was faxed over to Dr. Giovani Hagen (PCP) @ [phone] for signing. I spoke with the patient. Scanned into outside ep. Criss Mccrary [facility] 04-02-2024 Miscellaneous Notes This 'Ankle Surgery Clearance' was faxed over to Dr. Giovani Hagen (PCP) @ [phone] for signing. I spoke with the patient. Scanned into outside ep. Criss Mccrary documented in this encounter [facility] 04-01-2024 Miscellaneous Notes Pt called to [...] follow up with Dr. Hylton who is electronics parts sales representative We discussed seeing endocrinology to help with [...] Thanks, Connie Lucas, RN contains abnormal data [facility] LIVER PANEL Component Ref Range & Units [...] ALBUMIN GLOBULIN RATIO 1.[address] [facility] LIVER PANEL Component Ref Range & Units [...] - 29 U/L 72 High Lipase Order: [id number] Component Ref Range & Units 1 yr ago Lipase 13 - 60 U/L 260 High Hepatic Function Panel Order: [id number] Component Ref Range & Units 1 yr [...] g/dL 5.7 Low Hepatic Function Panel Order: [id number] Component Ref Range & Units 1 yr [...] ntains abnormal data COMPREHENSIVE METABOLIC PANEL Order: [id number] Component Ref Range & Units 1 yr [...] Filt Rate >60 mL/min/1.73m2 >60 Lipase Order: [id number] Component Ref Range & Units 1 yr [...] follow up with Dr. Hylton who is electronics parts sales representative We discussed seeing endocrinology to help with [...] Carol Winn MD documented in this encounter [facility] 04-01-2024 Telephone encounter Note Pt called to schedule, per message below. First Est slot is July 26 for VV. Please review and advise if a New Pt slot can be used for this Pt. Thank you, [facility] 04-01-2024 History of Present illness Narrative [...] DAY IN THE MORNING 30 tablet 2 Mwtmhkjitij-Bnxputvzn-Fzzusa 100-62.5-25 MCG/ACT aerosol powder INHALE 1 PUFF [...] follow-ups on file. documented in this encounter [facility] 03-29-2024 Telephone encounter Note I saw her in the past for this Per my note, Was seen by Dr. Hylton locally Will obtain labs and fibroscan results She had Nausea and vomiting with statin Couldn't tolerate metformin due to nausea/vomiting and diarrhea She can still follow up with Dr. Hylton who is electronics parts sales representative We discussed seeing endocrinology to help with weight loss and insulin resistance We also discussed cutting back on ETOH to one drink a week (currently 3-4 drinks a week) Did she follow up with Dr. Hylton? She can schedule OV with me if she prefers [facility] Work Phone: 03-29-[address] Winn, Pt JESSE Dx Fatty Liver, Liver Disease PT sent MYC message requesting a follow up labs show elevated LFTs and wanted them reviewed Please advise Thanks, Connie Lucas, RN contains abnormal data [facility] LIVER PANEL Component Ref Range & Units [...] ALBUMIN GLOBULIN RATIO 1.[address] [facility] LIVER PANEL Component Ref Range & Units [...] - 29 U/L 72 High Lipase Order: [id number] Component Ref Range & Units 1 yr ago Lipase 13 - 60 U/L 260 High Hepatic Function Panel Order: [id number] Component Ref Range & Units 1 yr [...] g/dL 5.7 Low Hepatic Function Panel Order: [id number] Component Ref Range & Units 1 yr [...] ntains abnormal data COMPREHENSIVE METABOLIC PANEL Order: [id number] Component Ref Range & Units 1 yr [...] Filt Rate >60 mL/min/1.73m2 >60 Lipase Order: [id number] Component Ref Range & Units 1 yr [...] follow up with Dr. Hylton who is electronics parts sales representative We discussed seeing endocrinology to help with [...] XR CHEST 2V FRONTAL/LAT Carol Winn MD [facility] 03-27-2024 Telephone encounter Note OARRS reviewed, Rx sent into patient's pharmacy. [facility] 03-27-2024 Miscellaneous Notes OARRS reviewed, Rx sent into patient's pharmacy. Per hieu to increase tramadol 50mg 2 po every 6 prn documented in this encounter [facility] 03-27-2024 Telephone encounter Note Per hieu to increase tramadol 50mg 2 po every 6 prn [facility] 03-25-2024 Telephone encounter Note Images from the original note were not included. Patient: Orion Eleuterio Harper : 1990 PCP: Giovani Hagen MD [...] Flowsheet Row Patient Outreach from 01/17/2024 in [facility] with Roshni Monday, Hospital Information Discharge Date 01/10/24 Discharged To: Home Setting Discharge Hospital [facility] Engagement Call Start Time 1232 Admission Date [...] End Time 1233 No follow-ups on file. [facility] 03-25-2024 Miscellaneous Notes Images from the original [...] Flowsheet Row Patient Outreach from 01/17/2024 in [facility] with Roshni Hospital Information Discharge Date 01/10/24 Discharged To: Home Setting Discharge Hospital [facility] Engagement Call Start Time 1232 Admission Date [...] in the chart. documented in this encounter [facility] 03-25-2024 Telephone encounter Note Patient called asking about the results of her MRI, please advise. Results are in the chart. [facility] 03-20-2024 History of Present illness Narrative Reason [...] escitalopram (LEXAPRO) 20 mg, Oral, Every morning Xfozznypzrc-Mumraxxfo-Zvwxoy 100-62.5-25 MCG/ACT aerosol powder INHALE 1 PUFF [...] in partial remission, most recent episode manic ([facility]) 09/23/2022 Diverticular disease of colon 09/23/2022 Dysphagia 09/23/2022 Elevated liver enzymes 09/23/2022 Exercise induced bronchospasm ([facility]) 09/23/2022 Finding of above normal blood pressure 09/23/2022 History of hysterectomy 09/23/2022 Hyperglycemia 09/23/2022 Hypersexuality 09/23/2022 Insomnia 09/23/2022 Irritable bowel syndrome with constipation 09/23/2022 Mild intermittent asthma without complication ([facility]) 09/23/2022 Mood swings 09/23/2022 Nephrolithiasis 09/23/2022 Nonalcoholic steatohepatitis (ENGLISH) 09/23/2022 Other specified abnormal findings of blood chemistry 09/23/2022 Poor concentration 09/23/2022 Sacroiliitis, not elsewhere classified ([facility]) 09/23/2022 Skin pain 09/23/2022 Thyroid enlargement ([facility]) 09/23/2022 Atherosclerosis of aorta ([facility]) 06/16/2020 Atherosclerosis of both carotid arteries 11/16/2020 Atherosclerosis of coronary artery without angina pectoris ([facility]) 05/18/2021 Gastroesophageal reflux disease without esophagitis 07/09/2019 Gastroparesis 11/02/2022 Non-refractory idiopathic generalized epilepsy ([facility]) 11/22/2019 Osteoarthritis of knee 06/14/2019 Hypercholesterolemia ([facility]) 07/01/2021 Recurrent UTI 12/12/2022 Vitamin D deficiency 05/16/2019 Dizziness 12/13/2022 Acute nonintractable headache 12/13/2022 History of COVID-19 02/06/2023 Overweight 02/06/2023 Acute biliary pancreatitis without infection or necrosis 03/21/2023 Calculus of gallbladder without cholecystitis without obstruction 03/23/2023 Cholecystitis 04/18/2023 Encounter for postoperative care 04/18/2023 History of acute pancreatitis 04/18/2023 History of cholecystectomy 04/18/2023 Cough 04/18/2023 Anaphylactic syndrome 04/18/2023 PTSD (post-traumatic stress disorder) ([facility]) 02/24/2015 Tinea 10/03/2023 Weight gain [...] nursing note reviewed. Exam conducted with a truck driver supervisor present. Vitals: Estimated body mass index is [...] Darwin Starr DO documented in this encounter [facility] 03-07-2024 Telephone encounter Note OARRS reviewed, Rx sent into patient's pharmacy. [facility] 03-07-2024 Miscellaneous Notes OARRS reviewed, Rx sent into patient's pharmacy. documented in this encounter [facility] 03-07-2024 Telephone encounter Note OARRS reviewed, Rx sent into patient's pharmacy. [facility] 03-07-2024 Miscellaneous Notes OARRS reviewed, Rx sent into patient's pharmacy. ALPRAZolam (Xanax) 0.5 MG tablet [facility] documented in this encounter [facility] 03-06-2024 History of Present illness Narrative Physical [...] 2:57 PM EST documented in this encounter [facility] 03-06-2024 Telephone encounter Note ALPRAZolam (Xanax) 0.5 MG tablet [facility] 02-12-2024 History of Present illness Narrative Physical [...] to be instructed in home exercise program. Pst Manager Goals: To be met in 10 [...] sign below. Date: documented in this encounter [facility] 02-06-2024 History of Present illness Narrative Associated [...] DAY IN THE MORNING 30 tablet 2 Tbtkaruztqy-Xtkncixxl-Kfdphv 100-62.5-25 MCG/ACT aerosol powder INHALE 1 PUFF [...] CT ANGIOGRAM CHEST 07/30/2018 CT ANGIOGRAM CHEST [facility] EGD 06/30/2022 Normal hypopharynx, [...] follow-ups on file. documented in this encounter [facility] 01-29-2024 Telephone encounter Note 25 visits out to 10/21/24 [facility] 01-29-2024 Miscellaneous Notes 25 visits out to 10/21/24 documented in this encounter [facility] 01-22-2024 History of Present illness Narrative Reason [...] escitalopram (LEXAPRO) 20 mg, Oral, Every morning Rzksbiezczx-Inqblczuu-Bihotb 100-62.5-25 MCG/ACT aerosol powder INHALE 1 PUFF [...] Elevated liver enzymes 09/23/2022 Exercise induced bronchospasm ([facility]) 09/23/2022 Finding of above normal blood pressure 09/23/2022 History of hysterectomy 09/23/2022 Hyperglycemia 09/23/2022 Hypersexuality 09/23/2022 Insomnia 09/23/2022 Irritable bowel syndrome with constipation 09/23/2022 Mild intermittent asthma without complication ([facility]) 09/23/2022 Mood swings 09/23/2022 Nephrolithiasis 09/23/2022 Nonalcoholic steatohepatitis (ENGLISH) 09/23/2022 Other specified abnormal findings of blood chemistry 09/23/2022 Poor concentration 09/23/2022 Sacroiliitis, not elsewhere classified ([facility]) 09/23/2022 Skin pain 09/23/2022 Thyroid enlargement ([facility]) 09/23/2022 Atherosclerosis of aorta ([facility]) 06/16/2020 Atherosclerosis of both carotid arteries 11/16/2020 Atherosclerosis of coronary artery without angina pectoris ([facility]) 05/18/2021 Gastroesophageal reflux disease without esophagitis 07/09/2019 Gastroparesis 11/02/2022 Non-refractory idiopathic generalized epilepsy ([facility]) 11/22/2019 Osteoarthritis of knee 06/14/2019 Hypercholesterolemia ([facility]) 07/01/2021 Recurrent UTI 12/12/2022 Vitamin D deficiency 05/16/2019 Dizziness 12/13/2022 Acute nonintractable headache 12/13/2022 History of COVID-19 02/06/2023 Overweight 02/06/2023 Acute biliary pancreatitis without infection or necrosis 03/21/2023 Calculus of gallbladder without cholecystitis without obstruction 03/23/2023 Cholecystitis 04/18/2023 Encounter for postoperative care 04/18/2023 History of acute pancreatitis 04/18/2023 History of cholecystectomy 04/18/2023 Cough 04/18/2023 Anaphylactic syndrome 04/18/2023 PTSD (post-traumatic stress disorder) ([facility]) 02/24/2015 Tinea 10/03/2023 Weight gain [...] nursing note reviewed. Exam conducted with a truck driver supervisor present. Vitals: Estimated body mass index is [...] Darwin Starr DO documented in this encounter [facility] 01-09-2024 History of Present illness Narrative Images [...] DAY IN THE MORNING 30 tablet 2 Mmuhfrxezar-Wowrhixkj-Ghrhgs 100-62.5-25 MCG/ACT aerosol powder INHALE 1 PUFF [...] follow-ups on file. documented in this encounter [facility] 01-08-2024 Telephone encounter Note [facility] 01-08-2024 Miscellaneous Notes [facility] [place] [facility] [place] documented in this encounter [facility] 12-28-2023 Hospital Discharge instructions Patient Education 12/28/2023 15:59:41 Kidney Stones, Qyac-kl-Hkna Kidney Stones Kidney stones are rock-like masses [...] Follow these instructions at home: Medicines Take fifv-iok-bezkhbu and prescription medicines only as told by [...] provider. Document Revised: 12/02/2022 Document Reviewed: 12/02/2022 [employer] Patient Education 2023 [employer]. Follow Up Care 11/07/2022 15:52:12 With:OLEG OSEI, BHAVESH Patterson, URL Address: When:1 year [facility] 12-28-2023 Note Patient Education Urology [...] these instructions at home: Medicines ? Take asdp-nqb-ctnfcvv and prescription medicines only as told by [...] provider. Document Revised: 12/02/2022 Document Reviewed: 12/02/2022 [employer] Patient Education ? 2023 [employer]. [facility] 12-26-2023 History of Present illness Narrative [...] DAY IN THE MORNING 30 tablet 2 Rugbtidwuvh-Xfqobtnnt-Vhnizj 100-62.5-25 MCG/ACT aerosol powder INHALE 1 PUFF [...] CT ANGIOGRAM CHEST 07/30/2018 CT ANGIOGRAM CHEST [facility] EGD 06/30/2022 Normal hypopharynx, normal esophagus, gastritis, Non bleeding gastric ulcers. Normal examined duodenum GALLBLADDER SURGERY 2022 HYSTERECTOMY PAP SMEAR 04/15/2021 normal PARTIAL HYSTERECTOMY 05/2016 PELVIC LAPAROSCOPY 02/10/2023 Visit Vitals LMP (LMP Unknown) Comment: partial hysterectomy 05/2016 OB Status Hysterectomy Smoking Status Former Review of Systems Objective Physical Exam Assessment/Plan No follow-ups on file. documented in this encounter [facility] 12-19-2023 Note Education (CARDMN) ---- ORION HARPER ([id number]) 1990 F Date Time Provider Department 12/19/23 [...] Encounter Status:Closed by GEGE LEMA on 12/19/23 [facility] 12-19-2023 Note HNO ID: [id number] Author: GEGE LEMA Tech Service: ? Author Type: Technologist Type: Progress Notes Filed: 12/19/2023 15:45 Note Text: EVENT MONITOR DISPOSABLE PATCH INSTRUCTIONS Patient Name: Orion Harper [facility] Number: [id number] Skin prepped and cleansed with alcohol Patch secured to prepped area Monitor Activated Serial #: [id number] Patient Instructed: Prescribed order timeframe Bathing guidelines Usage of event button and diary documentation Return of monitor at the end of prescribed order Call with problems [phone] or [phone]. [phone] Patient expresses a good understanding of instructions Tristian Pretty [facility] 12-19-2023 History of Present illness Narrative EVENT MONITOR DISPOSABLE PATCH INSTRUCTIONS Patient Name: Orion Harper [facility] Number: [id number] Skin prepped and cleansed with alcohol Patch secured to prepped area Monitor Activated Serial #: [id number] Patient Instructed: Prescribed order timeframe Bathing guidelines Usage of event button and diary documentation Return of monitor at the end of prescribed order Call with problems [phone] or [phone] ext. [phone] Patient expresses a good understanding of instructions Tristian Pretty documented in this encounter [facility] 12-19-2023 Instructions Solo Mora MD - 12/19/2023 3:27 PM EDT Next Steps: 1). Please wear a heart monitor for 2 weeks and mail it back 2). Please get a stress echo done and follow up with me afterwards documented in this encounter [facility] 12-19-2023 History of Present illness Narrative Images from the original note were not included. [facility]na Hooker Department of Cardiovascular Medicine SECTION OF CARDIAC PACING and ELECTROPHYSIOLOGY OUTPATIENT VISIT DATE December 19, 2023 OUTPATIENT VISIT TYPE NEW PRIMARY CARE PHYSICIAN: Giovani Hagen MD [address] [place] [address] CHIEF COMPLAINT: Syncope, cardiac evaluation for family [...] had any workup done including Stress Echo, shaving machine operator or 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 Reports symptoms of palpitations [...] had any workup done including Stress Echo, shaving machine operator or 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 PLAN AND RECOMMENDATIONS: - Exercise stress echo for exertional syncope to rule out structural or arrhythmic cause - 2 week tina Fitzgerald personally interviewed, confirmed and edited the above information as obtained by others. CONTACT INFORMATION: Solo Mora MD documented in this encounter [facility] 12-19-2023 Note HNO ID: [id number] Author: SOLO MORA MD Service: ? Author Type: Physician Type: Progress Notes Filed: 12/28/2023 02:49 Note Text: [facility] Department of Cardiovascular Medicine SECTION OF CARDIAC PACING and ELECTROPHYSIOLOGY OUTPATIENT VISIT DATE December 19, 2023 OUTPATIENT VISIT TYPE NEW PRIMARY CARE PHYSICIAN: Giovani Hagen MD [address] [place] [address] CHIEF COMPLAINT: Syncope, cardiac evaluation for family [...] had any workup done including Stress Echo, shaving machine operator or 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 Reports symptoms of palpitations [...] for syncopal episod (more content not included)... [facility] 12-19-2023 Note HNO ID: [id number] Author: SOLO MORA MD Service: ? Author [...] correspond to sinus tachycardia Solo Mora MD [facility] 12-18-2023 Telephone encounter Note Patient had labwork performed on 12-13-2023. Dr. Colvin wanted you to be aware so you could review them. [facility] 12-18-2023 Miscellaneous Notes Patient had labwork performed on 12-13-2023. Dr. Colvin wanted you to be aware so you could review them. documented in this encounter [facility] 11-02-2023 Telephone encounter Note Images from the original note were not included. Records are in Care Everywhere: EP Referral- 11/01/23 (Dr. Shilo Dillon/Cardiology) Criss Mccrary [facility] 11-02-2023 Miscellaneous Notes Images from the original note were not included. Records are in Care Everywhere: EP Referral- 11/01/23 (Dr. Shilo Dillon/Cardiology) Criss Mccrary documented in this encounter [facility] 03-20-2023 Miscellaneous Notes Patient is a [...] prior to transfer. documented in this encounter [facility] 11-03-2022 Miscellaneous Notes PA for Ibsrela initiated electronically. Awaiting response [facility] ID# [id number] Rx BIN [id number] Rx PCN CLAIMCR Rx Grp STOH documented in this encounter [facility] 11-02-2022 History of Present illness Narrative [facility] [place] Name: Orion Harper MR#: [id number] Date: 11/02/2022 Time: 1 hour Referred by: [...] She was given the website for the [facility] and shown the relaxation recordings with the recommendation to practice this and the rationale behind their use. Follow-up with Dr. Conteh was discussed as well as encouraging her to continue her PTSD work with a local trauma therapist. Soraida Zhang, Ph.D. documented in this encounter [facility] 11-02-2022 History of Present illness Narrative Assessment ASSESSMENT 32 year old female with medical refractory gastroparesis. PLAN I discussed surgical therapy for gastroparesis in detail. Orion Harper is candidate for further medical treatment. Needs to stop Wegovy May consider for wireless motility capsule study Constipation medication change per Dr. 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 Maria Dolores Corey DO P Sp Dds[facility] Clinical Pool Please ask her to see PAYROLL CONSULTANT to r/o endometriosis there was a very slight abnormal wave (not strong) suggesting its possible Called and spoke with the patient and relayed providers message. documented in this encounter [facility] 10-18-2022 Miscellaneous Notes PA initiated via [employer]. Await response. Covered: Retail, Mail Order Unknown: Specialty, Long-Term Care Group ID: [id number] Group name: BIN: [id number] PCN: CLAIMCR documented in this encounter [facility] 10-18-2022 History of Present illness Narrative Images from the original note were not included. documented in this encounter [facility] 10-17-2022 Nurse Note EGG completed. Able to drink the 500 ml of water without any difficulty. documented in this encounter [facility] 09-12-2022 History of Present illness Narrative [...] [address] PERFORMED: No IV SITE: DC only - not applicable, oral or physician administered agents given to patient POST EXAM PIV STATUS: Not applicable PROCEDURE TYPE: NM GET: 1.1 mCi Tc99m SULFUR COLLOID was administered orally via 4 ounces of Egg Beaters,2 pieces of toast, 1 ounce of jelly with 8 ounces of water orally ADMINISTRATION TIME: 10:11AM PATIENT DISCHARGED TO: Ambulatory patient, left NM department area. A Diagnostic radioactive procedure has taken place, with no further precautions necessary other than routine body substance precautions. More information regarding radiation safety can be found using this link: [email or web address] SIGNATURE: LISBETH Clark) PATIENT NAME: Orion Harper DATE: September 12, 2022 TIME: 2:45 PM PAGER/CONTACT #: documented in this encounter [facility] 08-31-2022 Nurse Note POST OP LEARNING RESPONSE INSTRUCTION PROVIDED TO: Patient and family member METHOD OF INSTRUCTION: Written instruction - handouts Verbal instruction PATIENT / FAMILY RESPONSE: Information received as demonstrated by interest and questions FOLLOW-UP PLAN: Patient instructed to call with any further issues SUPPLEMENTAL MATERIAL: None REFERRAL (RECOMMENDATION): None Electronically Signed By: Wilma Limon RN In Department: AMBULATORY SURGERY [facility] 08-31-2022 Nurse Note POST OP LEARNING [...] Department: AMBULATORY SURGERY documented in this encounter [facility] 08-31-2022 History and physical note SEDATION [...] DATE: August 31, 2022 TIME: 2:[address] [facility] 08-31-2022 History and physical note SEDATION [...] TIME: 2:51 PM documented in this encounter [facility] 08-31-2022 Nurse Note PRE OP LEARNING ASSESSMENT PROCEDURE/SURGERY: GI PROCEDURES: EGD READINESS TO LEARN COGNITIVE ABILITY: Alert and oriented MOTIVATION TO LEARN: Interested FAMILY SUPPORT: Unable to assess - Family not present PATIENT LEARNS BEST BY: Written Instruction - Hand-outs Verbal Instruction FACTORS AFFECTING LEARNING: None PHYSICAL LIMITATIONS AFFECTING LEARNING: None Electronically Signed By: Ayleen Aj RN In Department: AMBULATORY SURGERY [facility] 08-24-2022 Miscellaneous Notes Lm to confirm procedure for 08-31-22 documented in this encounter [facility] 07-05-2022 Hospital Discharge instructions Patient Education [...] Address: [facility] [address] [place] [address]- Business (1) When:11/04/2022 08:39:10 Comments:With a stone metabolic work-up [facility] 06-30-2022 Nurse Note Pt denies any nausea at this time. Pt given 3 oz of apple juice per request and tolerating at this time. Pt denies any other s/s at this time, smiling in conversation, 500ml of Nacl completed as well. Pt reports she feels ready to go home. [facility] 06-30-2022 Nurse Note Pt denies any [...] Department: AMBULATORY SURGERY documented in this encounter [facility] 06-30-2022 Nurse Note Pt c/o nausea [...] Pt resting in bed at this time. [facility] 06-30-2022 Nurse Note POST OP LEARNING [...] By: Wilma Limon In Department: AMBULATORY SURGERY [facility] 06-30-2022 History and physical note SEDATION [...] June 30, 2022 TIME: 11:35 AM [facility] 06-30-2022 History and physical note SEDATION [...] TIME: 11:35 AM documented in this encounter [facility] 06-30-2022 Nurse Note PRE OP LEARNING [...] Elissa Kwok RN In Department: AMBULATORY SURGERY [facility] 06-23-2022 Miscellaneous Notes Confirmed procedure for 06-30-22 documented in this encounter [facility] 06-15-2022 History of Present illness Narrative [...] 2022 8:08 PM documented in this encounter [facility] 06-14-2022 Miscellaneous Notes Images from the [...] MD 06/14/2022 9:35 AM EST Back to [facility], I reviewed the ultrasound done in November This hypodensity was felt to be a benign cyst I will order a follow up ultrasound to be done This is reassuring Carol Winn MD 06/14/2022 9:29 AM EST Ok Milly, the CT scan showed Fatty liver [...] needed pending results documented in this encounter [facility] 06-10-2022 History of Present illness Narrative [...] 2022 10:01 AM documented in this encounter [facility] 05-27-2022 History of Present illness Narrative [...] 2022 12:29 PM documented in this encounter [facility] 05-27-2022 History of Present illness Narrative [...] follow up with Dr. Hylton who is electronics parts sales representative We discussed seeing endocrinology to help with [...] follow-ups on file. documented in this encounter [facility] 05-03-2022 Evaluation note Encounter Date Diagnosis Assessment Notes Apr, ENGLISH (nonalcoholic steatohepatiti s) (ICD-10 - K75.81) Apr, Abnormal ultrasound (ICD-10 - R93.89) Apr, Elevated liver enzymes (ICD-10 - R74.8) Apr, Liver cyst (ICD-10 - K76.89) [facility] Other Evaluation + Plan note Future Appointments Appointment Date:06/30/2022 10:00:00 AM Scheduled Provider: Location:[facility] Appointment Type:Urology CALL PAT FT Appointment Date:07/05/2022 08:15:00 AM Scheduled Provider: Location:[facility] Appointment Type:Urology FT Diagnostic Tests Pending * [facility] Appointment Date:11/07/2022 03:15:00 PM Scheduled Provider:Madhuri MISHRA MD Location:[facility] App[facility]ments Appointment Date:12/30/2024 03:15:00 PM Scheduled Provider:Mad[facility]ISHRA [facility] Office Visit [facility] evaluation noteNo assessment information available [facility] Diagnosis Fatty liver- Primary Other chronic nonalcoholic liver disease Bilious vomiting with nausea Right sided abdominal pain Abdominal pain, unspecified site Nausea Nausea alone History of diverticulitis SOB (shortness of breath) Shortness of breath documented in this encounter [facility] note* Diagnosis Liver lesion- Primary Other specified disorders of liver [facility] Diagnosis Gastroparesis- Primary documented in this encounter [facility] note* Diagnosis Gastroparesis- Primary documented in this encounter [facility] note* Diagnosis Irritable bowel syndrome with constipation- Primary Irritable bowel syndrome documented in this encounter [facility] note* Diagnosis Gastroparesis documented in this encounter [facility] note* Diagnosis Gastroparesis- Primary documented in this encounter [facility] note* Diagnosis SOB (shortness of breath) Shortness of breath documented in this encounter [facility] note* Diagnosis Liver lesion Other specified disorders of liver documented in this encounter [facility] note* Diagnosis Elevated LFTs Other abnormal blood chemistry documented in this encounter [facility] note* Diagnosis Bilious vomiting with nausea Right sided abdominal pain Abdominal pain, unspecified site Nausea Nausea alone documented in this encounter [facility] note* Diagnosis Nausea Nausea alone documented in this encounter [facility] note* Diagnosis Gastroparesis- Primary documented in this encounter [facility] note* Diagnosis Syncope and collapse- Primary documented in this encounter [facility] note* Diagnosis Syncope, unspecified syncope type- Primary documented in this encounter [facility] note* Diagnosis Syncope, unspecified syncope type- Primary documented in this encounter [facility] note* Diagnosis Nausea- Primary Nausea alone PUD (peptic ulcer disease) Peptic ulcer, unspecified site, unspecified as acute or chronic, without mention of hemorrhage, perforation, or obstruction Nausea Nausea alone documented in this encounter [facility] note* Diagnosis PUD (peptic ulcer disease)- Primary Peptic ulcer, unspecified site, unspecified as acute or chronic, without mention of hemorrhage, perforation, or obstruction Bilious vomiting with nausea Right sided abdominal pain Abdominal pain, unspecified site Nausea- Primary Nausea alone PUD (peptic ulcer disease) Peptic ulcer, unspecified site, unspecified as acute or chronic, without mention of hemorrhage, perforation, or obstruction [facility] Attention deficit hyperactivity disorder, [...] episode manic (CMS/HCC) [facility] Diagnosis Attention deficit hyperactivity disorder, predominantly [...] or radiculitis nos [facility] Diagnosis Attention deficit hyperactivity disorder, [...] complication (CMS/HCC)- Primary documented in [facility] encounter [facility]* Diagnosis Attention deficit hyperactivity disorder, [...] asthma (CMS/HCC)- Primary documented in this encounter [facility]* Diagnosis Elevated LFTs- Primary Other abnormal blood chemistry BRBPR (bright red blood per rectum) Hemorrhage of rectum and anus [facility] Diagnosis Attention deficit hyperactivity disorder, [...] 35.0-39.9 without comorbidity) documented in this encounter [facility]* Diagnosis Elevated LFTs- Primary Other abnormal blood chemistry [facility] Diagnosis Elevated LFTs- Primary Other abnormal blood chemistry [facility] Diagnosis Attention deficit hyperactivity disorder, [...] in partial remission, most recent episode manic ([facility]/HCC) Tremors of nervous system- Primary Mild intermittent asthma without complication ([facility]/HCC) Moderate persistent asthmatic bronchitis with acute exacerbation ([facility])- Primary Sprain of anterior talofibular ligament of right ankle, subsequent encounter [facility] Other dyspnea and respiratory abnormality Peroneal tendon tear, right, initial encounter- Primary Sprain of anterior talofibular ligament of right ankle, subsequent encounter Osteochondritis dissecans of ankle, right Severe ankle sprain, right, initial encounter [facility] Diagnosis Right ankle instability- Primary Other joint derangement, not elsewhere classified, ankle and foot Right ankle instability Other joint derangement, not elsewhere classified, ankle and foot [facility] Diagnosis Sprain of anterior talofibular ligament of right ankle, initial encounter- Primary Right ankle instability Other joint derangement, not elsewhere classified, ankle and foot [facility] Diagnosis Attention deficit hyperactivity disorder, predominantly inattentive type (CMS/HCC)- Primary Bipolar disorder, in partial remission, most recent episode manic ([facility]) Dizziness Dizziness and giddiness Nonintractable episodic headache, unspecified headache type Attention deficit hyperactivity disorder, predominantly inattentive type (CMS/HCC)- Primary Anxiety Anxiety state, unspecified Bipolar disorder, in partial remission, most recent episode manic ([facility]/HCC) History of cholecystectomy Other acquired absence of organ History of acute pancreatitis Anaphylaxis, sequela Cough, unspecified type Bipolar disorder, in partial remission, most recent episode manic ([facility]/HCC)- Primary Attention deficit hyperactivity disorder (ADHD), predominantly [...] of spine- Primary [facility] Diagnosis ENGLISH (nonalcoholic steatohepatitis)- Primary Other chronic nonalcoholic liver disease Right ankle instability Other joint derangement, not elsewhere classified, ankle and foot [facility] Diagnosis Attention deficit hyperactivity disorder, [...] and uterus [facility]* Diagnosis BRBPR (bright red blood per rectum) Hemorrhage of rectum and anus [facility] Diagnosis Attention deficit hyperactivity disorder, [...] encounter [facility] Other dyspnea and respiratory abnormality Postop check Follow-up examination, following unspecified surgery documented in this encounter [facility]* Diagnosis Attention deficit hyperactivity disorder, [...] encounter Snoring Other dyspnea and respiratory abnormality 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), predominantly inattentive type (CMS/HCC) Bipolar disorder, in partial remission, most recent [...] encounter Snoring Other dyspnea and respiratory abnormality 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), predominantly inattentive type (CMS/HCC) Bipolar disorder, in partial remission, most recent episode manic (CMS/HCC) Prediabetes Other abnormal glucose Sprain of anterior talofibular ligament of right ankle, subsequent encounter- Primary Peroneal tendon tear, right, initial encounter [facility] [...] encounter Snoring Other dyspnea and respiratory abnormality 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), predominantly inattentive type (CMS/HCC) Bipolar disorder, in partial remission, most recent episode manic (CMS/HCC) Prediabetes Other abnormal glucose Anxiety Anxiety state, unspecified Bipolar disorder, in [...] encounter Snoring Other dyspnea and respiratory abnormality 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), predominantly inattentive type (CMS/HCC) Bipolar disorder, in partial remission, most recent episode manic (CMS/HCC) Prediabetes Other abnormal glucose Peroneal tendon tear, right, initial encounter- Primary Right ankle instability Other joint derangement, not elsewhere classified, ankle and foot Contracture of right ankle Sprain of anterior talofibular ligament of right ankle, subsequent encounter [facility] [...] encounter Snoring Other dyspnea and respiratory abnormality 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), predominantly inattentive type (CMS/HCC) Bipolar disorder, in partial remission, most recent episode manic (CMS/HCC) Prediabetes Other abnormal glucose Peroneal tendon tear, right, initial encounter- Primary Right ankle instability Other joint derangement, not elsewhere classified, ankle and foot [facility]* Diagnosis Attention deficit hyperactivity disorder, predominantly inattentive type (CMS/HCC)- Primary Bipolar disorder, in partial remission, most recent episode manic (/) Dizziness Dizziness and giddiness Nonintractable episodic headache, unspecified headache type Attention deficit hyperactivity disorder, predominantly inattentive type (CMS/HCC)- Primary Anxiety Anxiety state, unspecified Bipolar disorder, in partial remission, most recent episode manic (/) History of cholecystectomy Other acquired absence of [...] in partial remission, most recent episode manic (/HCC) Obesity (BMI 35.0-39.9 without comorbidity) Cervical radiculopathy- Primary Brachial neuritis or radiculitis nos Acute nonintractable headache, unspecified headache type Nausea and vomiting, unspecified vomiting type Localized edema- Primary Edema Obesity (BMI 35.0-39.9 without comorbidity) Injury of right ankle, subsequent encounter Anxiety Anxiety state, unspecified Bipolar disorder, in partial remission, most recent episode manic (/HCC) Tremors of nervous system- Primary Mild intermittent asthma without complication (CMS/HCC) Moderate persistent asthmatic bronchitis with acute exacerbation (CMS/HCC)- Primary Sprain of anterior talofibular ligament of right ankle, subsequent encounter Snoring Other dyspnea and respiratory abnormality 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), predominantly inattentive type (CMS/HCC) Bipolar disorder, in partial remission, most recent episode manic (CMS/HCC) Prediabetes Other abnormal glucose Pain in female genitalia on intercourse Dyspareunia Cystitis Unspecified cystitis documented in this encounter [...] encounter Snoring Other dyspnea and respiratory abnormality 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), predominantly inattentive type (CMS/HCC) Bipolar disorder, in partial remission, most recent episode manic (CMS/HCC) Prediabetes Other abnormal glucose Peroneal tendon tear, right, initial encounter- Primary Right foot pain Pain in soft tissues of limb [facility] [...] encounter Snoring Other dyspnea and respiratory abnormality 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), predominantly inattentive type (CMS/HCC) Bipolar disorder, in partial remission, most recent episode manic (CMS/HCC) Prediabetes Other abnormal glucose Anxiety- Primary Anxiety state, unspecified Generalized idiopathic epilepsy and epileptic syndromes, not intractable, 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) 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 PTSD (post-traumatic stress disorder) (CMS/HCC) Posttraumatic stress disorder documented in this encounter [facility] N[facility]ative - Reported* Type Description Date Medical History Anxiety Medical History Depression Medical History Diverticulosis Medical History bipolar Surgical History C section Surgical History hysterectomy Hospitalization History see above Hospitalization History diverticulitis 01/24/18 Hospitalization History NONE ON THE LAST YEAR [facility] Other Hospital course Narrative No data available for this section [facility] Discharge instructions No data available for this section [facility] No data available for this section [facility] Outpatient Procedure (Routine) - Authorized Specialty Diagnoses / Procedures Referred By Norma kennedy Referred To Contact [facility] Diagnoses Bilious vomiting with nausea Right sided abdominal pain Procedures EGD DIAGNOSTIC ESOPHAGOGASTRODUODENOSC OP[place] [address] [place] [address] [facility] [address] [place] [address] Referral ID Status Reason Start Date Expiration Date Visits Requested Visits Authorized [id number] Authorized Auto-Generat ed Referral 05/27/2022 05/27/2023 1 1 * MRI/CT (Routine) - Authorized Specialty Diagnoses / Procedures Referred By Norma kennedy Referred To Contact CT IMAGING Diagnoses Bilious vomiting with nausea Right sided abdominal pain Nausea Procedures CT ABD/PEL WO IVCON CT ABD & PELVIS [place] [address] [place] [address] Ct Imaging Referral ID Status Reason Start Date Expiration Date Visits Requested Visits Authorized [id number] Authorized Auto-Generat ed Referral 05/27/2022 06/26/2023 1 1 [facility] for referral (narrative)* Diagnostic Procedure Only (Routine) - Authorized Specialty Diagnoses / Procedures Referred By Contac t Referred To Contact US IMAGING Diagnoses Liver lesion Procedures US ABD RT UPPER QUADRANT US ABDOMINAL REAL TIME W/IMAGE LIMITED Carol Winn [place] [address] [place] [phone] Us Imaging Referral ID Status Reason Start Date Expiration Date Visits Requested Visits Authorized [id number] Authorized Auto-Generat ed Referral 06/14/2022 07/14/2023 1 1 [facility] for referral (narrative)* Diagnostic Procedure Only (Routine) - Closed Specialty Diagnoses / Procedures Referred By Norma t Referred To Contact US IMAGING Diagnoses Liver lesion Procedures US ABD RT UPPER QUADRANT US ABDOMINAL REAL TIME W/IMAGE LIMITED Carol Winn [place] [address] [place] [phone] Us [facility] [place] [address] Referral ID Status Reason Start Date Expiration Date V isits Requested Visits Authorized [id number] Closed Auto-Generate d Referral 06/14/2022 07/14/2023 1 1 [facility] for referral (narrative)* Diagnostic Procedure Only (Routine) - Closed Specialty Diagnoses / Procedures Referred By Norma t Referred To Contact US IMAGING Diagnoses Elevated LFTs Procedures US ABD RT UPPER QUADRANT US ABDOMINAL REAL TIME W/IMAGE LIMITED Carol Winn [place] [id number] [place] [phone] [place] [address] Referral ID Status Reason Start Date Expiration Date V isits Requested Visits Authorized [id number] Closed Auto-Generate d Referral 11/24/2021 12/24/2022 1 1 [facility] for referral (narrative)* Diagnostic Procedure Only (Routine) - Closed Specialty Diagnoses / Procedures Referred By Norma t Referred To Contact [facility] Diagnoses Nausea Procedures NM GASTRIC EMPTYING SOLID [place]STR[place] [address] [place] [address] Molecular & Functional Imaging [address] [id number] Referral ID Status Reason Start Date Expiration Date V isits Requested Visits Authorized [id number] Closed Auto-Generate d Referral 08/31/2022 09/30/2023 1 1 [facility] for referral (narrative)* Outpatient Procedure (Routine) - Authorized Specialty Diagnoses / Procedures Referred By Contac t Referred To Contact [facility] Diagnoses Gastroparesis Procedures ECG COMPLETE ECG ROUTINE ECG W/LEAST 12 LDS W/I&R Solo Mora MD [address] [place] [address] [place] [address] Referral ID Status Reason Start Date Expiration Date Visits Requested Visits Authorized [id number] Authorized Auto-Generat ed Referral 11/02/2023 11/01/2024 1 1 T [facility] for referral (narrative)* Outpatient Procedure (Routine) - Authorized Specialty Diagnoses / Procedures Referred By Contac t Referred To Contact [facility] Diagnoses Syncope and collapse Procedures ECG COMPLETE ECG ROUTINE ECG W/LEAST 12 LDS W/I&R Solo Mora MD [address] [place] [address] [address] Referral ID Status Reason Start Date Expiration Date Visits Requested Visits Authorized [id number] Authorized Auto-Generat ed Referral 12/19/2023 12/18/2024 1 1 [facility] for referral (narrative)* Diagnostic Procedure Only (Routine) - Closed Specialty Diagnoses / Procedures Referred By Contac t Referred To Contact [facility]LECULAR [facility] FUNCTIONAL IMAGING Diagnoses Nausea Procedures NM GASTRIC EMPTYING SOLID [place]STRIC [place] [address] [place] [address] [facility] [address] [place] [address] Referral ID Status Reason Start Date Expiration Date V isits Requested Visits Authorized [id number] Closed Auto-Generate d Referral 08/31/2022 09/30/2023 1 1 * Outpatient Procedure (Routine) - Closed Specialty Diagnoses / Procedures Referred By Norma kennedy Referred To Contact [facility] Diagnoses PUD (peptic ulcer disease) Procedures EGD DIAGNOSTIC ESOPHAGOGASTRODUODENOSC OPY [place] [address] [place] [address] [facility] [address] [address] Referral ID Status Reason Start Date Expiration Date V isits Requested Visits Authorized [id number] Closed Auto-Generate d Referral 06/30/2022 07/01/2023 1 1 [facility] for referral (narrative)* Outpatient Procedure (Routine) - Closed Specialty Diagnoses / Procedures Referred By Norma kennedy Referred To Contact [facility] Diagnoses PUD (peptic ulcer disease) Procedures EGD DIAGNOSTIC ESOPHAGOGASTRODUODENOSC OPY [place] [address] [place] [address] [address] Referral ID Status Reason Start Date Expiration Date V isits Requested Visits Authorized [id number] Closed Auto-Generate d Referral 06/30/2022 07/01/2023 1 1 * Outpatient Procedure (Routine) - Closed Specialty Diagnoses / Procedures Referred By Contac t Referred To [facility] Diagnoses Bilious vomiting with nausea Right sided abdominal pain Procedures EGD DIAGNOSTIC ESOPHAGOGASTRODUODENOSC OPY [place] [address] [place] [address] [facility] [address] [place] [address] Referral ID Status Reason Start Date Expiration Date V isits Requested Visits Authorized [id number] Closed Auto-Generate d Referral 05/27/2022 05/27/2023 1 1 [facility] for referral (narrative)* Outpatient Procedure (Routine) - Authorized Specialty Diagnoses / Procedures Referred By Contac t Referred To [facility] Diagnoses BRBPR (bright red blood per rectum) Procedures COLONOSCOPY DIAGNOSTIC COLONOSCOPY FLX DX W/COLLJ SPEC WHEN PFRMD Iliana Mercado PA-C [address] [place] [address] [address] Referral ID Status Reason Start Date Expiration Date Visits Requested Visits Authorized [id number] Authorized Auto-Generat ed Referral 04/26/2024 04/26/2025 1 1 * Outpatient Procedure (Routine) - Authorized Specialty Diagnoses / Procedures Referred By Contac t Referred To [facility] Diagnoses Elevated LFTs Procedures DDI VIBRATION CONTROLLED TRANSIENT ELASTOGRAPHY (VCTE) LIVER ELASTOGRAPHY W/O IMAG W/I&R Iliana Mercado PA-C [address] [place] [address] [facility] [address] [place] [address] Referral ID Status Reason Start Date Expiration Date Visits Requested Visits Authorized [id number] Authorized Auto-Generat ed Referral 04/26/2024 04/26/2025 1 1 [facility] for referral (narrative)* Outpatient Procedure (Routine) - Pending Review Specialty Diagnoses / Procedures Referred By Contmusa t Referred To Contact [facility] Diagnoses ENGLISH (nonalcoholic steatohepatitis) Procedures LIVER BIOPSY NEEDLE BIOPSY LIVER NEEDLE PERCUTANEOUS Rosario Mcconnell I, MD [address] [place] [address] [address] Referral ID Status Reason Start Date Expiration Date Visits Requested Visits Authorized [id number] Pending Review Auto-Generat ed Referral 05/14/2024 05/14/2025 1 1 [facility] for referral (narrative)* Outpatient Procedure (Routine) - Closed Specialty Diagnoses / Procedures [facility] Referred To Contact [facility] Diagnoses BRBPR (bright red blood per rectum) Procedures COLONOSCOPY DIAGNOSTIC COLONOSCOPY FLX DX W/COLLJ SPEC WHEN PFRMD Iliana Mercado PA-C [address] [place] [address] [address] Referral ID Status Reason Start Date Expiration Date V isits Requested Visits Authorized [id number] Closed Auto-Generate d Referral 04/26/2024 04/26/2025 1 1 [facility] for visit NarrativePATIENT HERE AT THE REQUEST OF DR. HAGEN FOR ENGLISH & ABNORMAL US. ULTRASOUND AND LABS IN REFERRAL. PATIENT STATES SHE FEELS LETHARGIC & HAS OCCASIONAL ABDOMINAL PAINNort [employer] Other Reason for visit Narrative* Diagnostic Procedure Only (Routine) - Closed Specialty Diagnoses / Procedures Referred By Norma kennedy Referred To Contact US IMAGING Diagnoses Liver lesion Procedures US ABD RT UPPER QUADRANT US ABDOMINAL REAL [place] W/[place] [address] [facility] [place] [address] [place] [address] Referral ID Status Reason Start Date Expiration Date V isits Requested Visits Authorized [id number] Closed Auto-Generate d Referral 06/14/2022 07/14/2023 1 1 [facility] for visit Narrative* Diagnostic Procedure Only (Routine) - Closed Specialty Diagnoses / Procedures Referred By Contac t Referred To Contact US IMAGING Diagnoses Elevated LFTs Procedures US ABD RT UPPER QUADRANT US ABDOMINAL REAL [place] W/[place] [address] [place] [address] Us Imaging [facility] Referral ID Status Reason Start Date Expiration Date V isits Requested Visits Authorized [id number] Closed Auto-Generate d Referral 11/24/2021 12/24/2022 1 1 [facility] for visit Narrative* Diagnostic Procedure Only (Routine) - Closed Specialty Diagnoses / Procedures [facility] Referred To Contact [facility] FUNCTIONAL [facility]AG[facility] Diagnoses Nausea Procedures NM GASTRIC EMPTYING SOLID [place]STRIC [place] [address] [place] [address] Molecular & Functional Imaging [address] [place] [address] Referral ID Status Reason Start Date Expiration Date V isits Requested Visits Authorized [id number] Closed Auto-Generate d Referral 08/31/2022 09/30/2023 1 1 [facility] for visit Narrative* Outpatient Procedure (Routine) - Closed Specialty Diagnoses / Procedures [facility] Referred To Contact [facility] Diagnoses PUD (peptic ulcer disease) Procedures EGD DIAGNOSTIC ESOPHAGOGASTRODUODENOSC OPY [place] [address] [place] [address] [facility] [address] [place] [address] Referral ID Status Reason Start Date Expiration Date V isits Requested Visits Authorized [id number] Closed Auto-Generate d Referral 06/30/2022 07/01/2023 1 1 [facility] for visit Narrative* Outpatient Procedure (Routine) - Closed Specialty Diagnoses / Procedures Referred By Norma kennedy Referred To Contact [facility] Diagnoses Bilious vomiting with nausea Right sided abdominal pain Procedures EGD DIAGNOSTIC ESOPHAGOGASTRODUODENOSC OPY [place] [address] [place] [address] [facility] [address] [place] [address] Referral ID Status Reason Start Date Expiration Date V isits Requested Visits Authorized [id number] Closed Auto-Generate d Referral 05/27/2022 05/27/2023 1 1 [facility] for visit Narrative* Rehabilitation - Outpatient (Routine) - Authorized Specialty Diagnoses / Procedures Referred By Norma kennedy Referred To Contact Physical Therapy Diagnoses Cervical radiculopathy Procedures NV OFFICE/OUTPATIENT NEW HIGH MDM 60 MINUTES Giovani Hagen MD 112 [facility] [address] [place] [address] Phone: tel: fax: Zhen Burgess, PT [address] [address] Phone: tel: fax: Referral ID Status Reason Start Date Expiration Date Visits Requested Visits Authorized [id number] Authorized Specialty Services Required 01/25/2024 10/21/2024 25 25 [facility] for visit Narrative* Rehabilitation - Outpatient (Routine) - Authorized Specialty Diagnoses / Procedures Referred By Norma kennedy Referred To Contact Physical Therapy Diagnoses Cervical radiculopathy Unspecified injury of right ankle, subsequent encounter Procedures NV OFFICE/OUTPATIENT NEW HIGH MDM 60 MINUTES Giovani Hagen MD 112 [facility] [address] [place] [address] Phone: tel: fax: Zhen Burgess, PT 112 [facility] [address] [place] [address] Phone: tel: fax: Referral ID Status Reason Start Date Expiration Date Visits Requested Visits Authorized [id number] Authorized Specialty Services Required 01/25/2024 10/21/2024 25 25 [facility] N[facility]* Outpatient Procedure (Routine) - Closed Specialty Diagnoses / Procedures Referred By Norma t Referred To Contact [facility] Diagnoses Elevated LFTs Procedures DDI VIBRATION CONTROLLED TRANSIENT ELASTOGRAPHY (VCTE) LIVER ELASTOGRAPHY W/O IMAG W/I&R Iliana Mercado PA-C [address] [place] [address] [address] Referral ID Status Reason Start Date Expiration Date V isits Requested Visits Authorized [id number] Closed Auto-Generate d Referral 04/26/2024 04/26/[address] [facility]* Outpatient Procedure (Routine) - Closed Specialty Diagnoses / Procedures Referred By Norma kennedy Referred To Contact [facility] Diagnoses BRBPR (bright red blood per rectum) Procedures COLONOSCOPY DIAGNOSTIC COLONOSCOPY FLX DX W/COLLJ SPEC WHEN PFRMD Iliana Mercado PA-C [address] [place] [address] [address] Referral ID Status Reason Start Date Expiration Date V isits Requested Visits Authorized [id number] Closed Auto-Generate d Referral 04/26/2024 04/26/[address] [facility] Summary Purpose Family History No Family [...] Referred By Norma t Referred To Contact Radiology Diagnoses Cervical radiculopathy Procedures MR cervical spine wo contrast Giovani Hagen MD [address] [address] Referral ID Status Reason Start Date Expiration Date V isits Requested Visits Authorized [id number] Pending Review 01/09/2024 07/07/2024 1 1 Specialty Diagnoses / Procedures Referred By Contac t Referred To Contact Diagnoses Attention deficit hyperactivity disorder (ADHD), predominantly inattentive type (CMS/HCC) Giovani Hagen MD [address] [address] Referral ID Status Reason Start Date Expiration Date Visits Re quested Visits Authorized [id number] Closed 1 1 Specialty Diagnoses / Procedures Referred By Contac t Referred To Contact Diagnoses Attention deficit hyperactivity disorder (ADHD), predominantly inattentive type (CMS/HCC) Giovani Hagen MD [address] [address] Referral ID Status Reason Start Date Expiration Date V isits Requested Visits Authorized [id number] Pending Review 01/08/2024 07/06/2024 1 1 Specialty Diagnoses / Procedures Referred By Contac t Referred To Contact [facility] Diagnoses Syncope, unspecified syncope type Procedures CARDIOVASCULAR MEDICINE [place] [address] [place] [address] [facility] [address] [address] Referral ID Status Reason Start Date Expiration Date Visits Requested Visits Authorized [id number] Ref Not Required PCP Requested Referral 12/28/2023 12/27/2024 1 1 Specialty Diagnoses / Procedures Referred By Contac t Referred To Contact [facility] Diagnoses Syncope, unspecified syncope type Procedures STRESS ECHO TREADMILL ECHO TTHRC R-T 2D W/WO M-MODE COMPLETE REST&ST Solo Mora MD [address] [place] [address] [facility] [address] [address] Referral ID Status Reason Start Date Expiration Date Visits Requested Visits Authorized [id number] Authorized Auto-Generat ed Referral 12/19/2023 12/18/2024 1 1 Specialty Diagnoses / Procedures Referred By Norma kennedy Referred To Contact CT IMAGING Diagnoses Bilious vomiting with nausea Right sided abdominal pain Nausea Procedures CT ABD/PEL WO IVCON CT ABD & PEL[place] [address] [place] [address] [place] [address] Referral ID Status Reason Start Date Expiration Date V isits Requested Visits Authorized [id number] Closed Auto-Generate d Referral 05/27/2022 06/26/2023 1 1 Additional Source Comments INFORMATION SOURCE (unrecogn ized section and content) DATE CREATED AUTHOR 11/09/2018 [facility] DATE CREATED AUTHOR AUTHOR'S ORGANIZ ATION 08/23/2021 [facility] Specialist DATE CREATED AUTHOR AUTHOR'S ORGANIZ ATION 07/17/2022 [facility] DATE CREATED AUTHOR AUTHOR'S ORGANIZ ATION 10/31/2022 [facility] DATE CREATED AUTHOR AUTHOR'S ORGANIZ ATION 03/22/2023 [facility] DATE CREATED AUTHOR AUTHOR'S ORGANIZ ATION 03/28/2023 [facility] DATE CREATED AUTHOR AUTHOR'S ORGANIZ ATION 12/29/2023 [facility] DATE CREATED AUTHOR AUTHOR'S ORGANIZ ATION 04/07/2024 [facility] DATE CREATED AUTHOR AUTHOR'S ORGANIZ ATION 04/12/2024 [facility] DATE CREATED AUTHOR AUTHOR'S ORGANIZ ATION 05/04/2024 [facility] DATE CREATED AUTHOR AUTHOR'S ORGANIZ ATION 06/01/2024 [facility] DATE CREATED AUTHOR AUTHOR'S ORGANIZ ATION 07/06/2024 [facility] dical Specialists EPIC Care Teams (unrecognized sec tion and content) Team Status: Active Member Role Status Dates Giovani Hagen MD Primary Care Provider Active Team Status: Inactive Member Role Status Dates Erwin Hylton MD Attending Provider Active Giovnai Hagen MD Primary Care Provider Active [employer]electric [employer] Relationship Specialty Start Date End Date Hieu, Rugen Mabalay [address] [place] [address] PCP - General Family Medicine 03/27/19 [employer]electric Station Operator Relationship Specialty Start Date End Date HieuGiovani mcclellan Mabalay [address] [place] [address] PCP - General Family Medicine 03/27/19 [employer]electric Station Operator Relationship Specialty Start Date End Date ChassellGiovani mcclellan Mabalay [address] [place] [address] PCP - General Family Medicine 03/27/19 [employer]electric Station Operator Relationship Specialty Start Date End Date IheuGiovani mcclellan Mabalay [address] [place] [address] PCP - General Family Medicine 03/27/19 Hydroelectric Station Operator Relationship Specialty Start Date End Date Giovani Hagen Mabalay [address] [place] [address] PCP - General Family Medicine 03/27/19 Hydroelectric Station Operator Relationship Specialty Start Date End Date Giovani Hagen Mabalay [address] [place] [address] PCP - General Family Medicine 03/27/19 [employer]electric Station Operator Relationship Specialty Start Date End Date HieuGiovani mcclellan Mabalay [address] [place] [address] PCP - General Family Medicine 03/27/19 Hydroelectric Station Operator Relationship Specialty Start Date End Date HieuGiovani Mabalay [address] [place] [address] PCP - General Family Medicine 03/27/19 [employer]electric Station Operator Relationship Specialty Start Date End Date ChassellGiovani mcclellan Mabalay [address] [place] [address] PCP - General Family Medicine 03/27/19 Hydroelectric Station Operator Relationship Specialty Start Date End Date Giovani Hagen [address] [place] [address] PCP - General Family Medicine 03/27/19 Hydroelectric Station Operator Relationship Specialty Start Date End Date Hieu Giovani Rust [address] [place] [address] PCP - General Family Medicine 03/27/19 Hydroelectric Station Operator Relationship Specialty Start Date End Date Chassell, Giovani Rust [address] [place] [address] PCP - General Family Medicine 03/27/19 Hydroelectric Station Operator Relationship Specialty Start Date End Date HieuGiovani [address] [place] [address] PCP - General Family Medicine 03/27/19 Hydroelectric Station Operator Relationship Specialty Start Date End Date Giovani Hagen [address] [place] [address] PCP - General Family Medicine 03/27/19 Hydroelectric Station Operator Relationship Specialty Start Date End Date Giovani Hagen MD [address] [place] [address] PCP - General Family Medicine 03/27/19 Hydroelectric Station Operator Relationship Specialty Start Date End Date Giovani Hagen MD [address] [place] [address] PCP - General Family Medicine 03/27/19 Hydroelectric Station Operator Relationship Specialty Start Date End Date Giovani Hagen MD [address] [place] [address] PCP - General Family Medicine 03/27/19 Hydroelectric Station Operator Relationship Specialty Start Date End Date Giovani Hagen MD [address] [place] [address] PCP - General Family Medicine 03/27/19 Hydroelectric Station Operator Relationship Specialty Start Date End Date Giovani Hagen MD [address] [place] [address] PCP - General Family Medicine 03/27/19 Hydroelectric Station Operator Relationship Specialty Start Date End Date Giovani Hagen MD [address] [place] [address] PCP - General Family Medicine 03/27/19 Hydroelectric Station Operator Relationship Specialty Start Date End Date Giovani Hagen MD [address] [place] [address] PCP - General Family Medicine 03/27/19 Hydroelectric Station Operator Relationship Specialty Start Date End Date Giovani Hagne MD [address] [place] [address] PCP - General Family Medicine 03/27/19 Hydroelectric Station Operator Relationship Specialty Start Date End Date Giovani Hagen MD [address] [place] [address] PCP - General Family Medicine 03/27/19 Hydroelectric Station Operator Relationship Specialty Start Date End Date Giovani Hagen MD [address] [place] [address] [place] [address] PCP - General Family Medicine 03/27/19 Hydroelectric Station Operator Relationship Specialty Start Date End Date Giovani Hagen MD [address] [place] [address] [place] [address] PCP - General Family Medicine 03/27/19 Hydroelectric Station Operator Relationship Specialty Start Date End Date Giovani Hagen MD [address] [place] [address] [place] [address] PCP - General Family Medicine 03/27/19 Hydroelectric Station Operator Relationship Specialty Start Date End Date Giovani Hagen MD [address] [place] [address] [place] [address] PCP - General Family Medicine 03/27/19 Hydroelectric Station Operator Relationship Specialty Start Date End Date Giovani Hagen MD [address] [facility] [address] [place] [address] PCP - Medical Independence Commercial 10/22/18 04/23/99 Giovani Hagen MD [address] [place] [address] [place] [address] PCP - General Family Medicine 08/30/22 Hydroelectric Station Operator Relationship Specialty Start Date End Date Giovani Hagen MD [address] [place] [address] [place] [address] PCP - Medical Independence Commercial 10/22/18 04/23/99 Giovani Hagen MD [address] [place] [address] [place] [address] PCP - General Family Medicine 08/30/22 Hydroelectric Station Operator Relationship Specialty Start Date End Date Giovani Hagen MD [address] [place] [address] [place] [address] PCP - Medical Independence Commercial 10/22/18 04/23/99 Giovani Hagen MD [address] [place] [address] [place] [address] PCP - General Family Medicine 08/30/22 Hydroelectric Station Operator Relationship Specialty Start Date End Date Giovani Hagen MD [address] [place] [address] [place] [address] PCP - Medical Independence Commercial 10/22/18 04/23/99 Giovani Hagen MD [address] [place] [address] [place] [address] PCP - General Family Medicine 08/30/22 Hydroelectric Station Operator Relationship Specialty Start Date End Date Giovani Hagen MD [address] [place] [address] [place] [address] PCP - Medical Independence Commercial 10/22/18 04/23/99 Giovani Hagen MD [address] [place] [address] [place] [address] PCP - General Family Medicine 08/30/22 Hydroelectric Station Operator Relationship Specialty Start Date End Date Giovani Hagen MD [address] [place] [address] [place] [address] PCP - Medical Independence Commercial 10/22/18 04/23/99 Giovani Hagen MD [address] [place] [address] [place] [address] PCP - General Family Medicine 08/30/22 Hydroelectric Station Operator Relationship Specialty Start Date End Date Giovani Hagen MD [address] [place] [address] [place] [address] PCP - Medical Independence Commercial 10/22/18 04/23/99 Giovani Hagen MD [address] [place] [address] [place] [address] PCP - General Family Medicine 08/30/22 Hydroelectric Station Operator Relationship Specialty Start Date End Date Giovani Hagen MD [address] [place] [address] [place] [address] PCP - Medical Independence Commercial 10/22/18 04/23/99 Giovani Hagen MD [address] [place] [address] [place] [address] PCP - General Family Medicine 08/30/22 Hydroelectric Station Operator Relationship Specialty Start Date End Date Giovani Hagen MD [address] [place] [address] [place] [address] PCP - Medical Independence Commercial 10/22/18 04/23/99 Giovani Hagen MD [address] [place] [address] [place] [address] PCP - General Family Medicine 08/30/22 Hydroelectric Station Operator Relationship Specialty Start Date End Date Giovani Hagen MD [address] [place] [address] [place] [address] PCP - Medical Independence Commercial 10/22/18 04/23/99 Giovani Hagen MD [address] [place] [address] [place] [address] PCP - General Family Medicine 08/30/22 Hydroelectric Station Operator Relationship Specialty Start Date End Date Giovani Hagen MD [address] [place] [address] [place] [address] PCP - Medical Independence Commercial 10/22/18 04/23/99 Giovani Hagen MD [address] [place] [address] [place] [address] PCP - General Family Medicine 08/30/22 Hydroelectric Station Operator Relationship Specialty Start Date End Date Giovani Hagen MD [address] [place] [address] [place] [address] PCP - Medical Independence Commercial 10/22/18 04/23/99 Giovani Hagen MD [address] [place] [address] [place] [address] PCP - General Family Medicine 08/30/22 Hydroelectric Station Operator Relationship Specialty Start Date End Date Giovani Hagen MD [address] [place] [address] [place] [address] PCP - Medical Independence Commercial 10/22/18 04/23/99 Giovani Hagen MD [address] [place] [address] [place] [address] PCP - General Family Medicine 08/30/22 Hydroelectric Station Operator Relationship Specialty Start Date End Date Giovani Hagen MD [address] [place] [address] [place] [address] PCP - Medical Independence Commercial 10/22/18 04/23/99 Giovani Hagen MD [address] [place] [address] [place] [address] PCP - General Family Medicine 08/30/22 Hydroelectric Station Operator Relationship Specialty Start Date End Date Giovani Hagen MD [address] [place] [address] [place] [address] PCP - Medical Independence Commercial 10/22/18 04/23/99 Giovani Hagen MD [address] [place] [address] [place] [address] PCP - General Family Medicine 08/30/22 Hydroelectric Station Operator Relationship Specialty Start Date End Date Giovani Hagen MD [address] [place] [address] [place] [address] PCP - Medical Independence Commercial 10/22/18 04/23/99 Giovani Hagen MD [address] [place] [address] [place] [address] PCP - General Family Medicine 08/30/22 Hydroelectric Station Operator Relationship Specialty Start Date End Date Giovani Hagen MD [address] [place] [address] [place] [address] PCP - Medical Independence Commercial 10/22/18 04/23/99 Giovani Hagen MD [address] [place] [address] [place] [address] PCP - General Family Medicine 08/30/22 Hydroelectric Station Operator Relationship Specialty Start Date End Date Giovani Hagen MD [address] [place] [address] [place] [address] PCP - Medical Independence Commercial 10/22/18 04/23/99 Giovani Hagen MD [address] [place] [address] [place] [address] PCP - General Family Medicine 08/30/22 Hydroelectric Station Operator Relationship Specialty Start Date End Date Giovani Hagen MD [address] [place] [address] [place] [address] PCP - Medical Independence Commercial 10/22/18 04/23/99 Giovani Hagen MD [address] [place] [address] [place] [address] PCP - General Family Medicine 08/30/22 Hydroelectric Station Operator Relationship Specialty Start Date End Date Giovani Hagen MD [address] [place] [address] [place] [address] PCP - Medical Independence Commercial 10/22/18 04/23/99 Giovani Hagen MD [address] [place] [address] [place] [address] PCP - General Family Medicine 08/30/22 Hydroelectric Station Operator Relationship Specialty Start Date End Date Giovani Hagen MD [address] [place] [address] [place] [address] PCP - Medical Independence Commercial 10/22/18 04/23/99 Giovani Hagen MD [address] [place] [address] [place] [address] PCP - General Family Medicine 08/30/22 Hydroelectric Station Operator Relationship Specialty Start Date End Date Giovani Hagen MD [address] [place] [address] [place] [address] PCP - Medical Independence Commercial 10/22/18 04/23/99 Giovani Hagen MD [address] [place] [address] [place] [address] PCP - General Family Medicine 08/30/22 Hydroelectric Station Operator Relationship Specialty Start Date End Date Giovani Hagen MD [address] [place] [address] [place] [address] PCP - Medical Independence Commercial 10/22/18 04/23/99 Giovani Hagen MD [address] [place] [address] [place] [address] PCP - General Family Medicine 08/30/22 Hydroelectric Station Operator Relationship Specialty Start Date End Date Giovani Hagen MD [address] [place] [address] [place] [address] PCP - Medical Independence Commercial 10/22/18 04/23/99 Giovani Hagen MD [address] [place] [address] [place] [address] PCP - General Family Medicine 08/30/22 Hydroelectric Station Operator Relationship Specialty Start Date End Date Giovani Hagne MD [address] [place] [address] [place] [address] PCP - General Family Medicine 03/27/19 Hydroelectric Station Operator Relationship Specialty Start Date End Date Giovani Hagen MD [address] [place] [address] [place] [address] PCP - Medical Independence Commercial 10/22/18 04/23/99 Giovani Hagen MD [address] [place] [address] [place] [address] PCP - General Family Medicine 08/30/22 Hydroelectric Station Operator Relationship Specialty Start Date End Date Giovani Hagen MD [address] [place] [address] [place] [address] PCP - General Family Medicine 03/27/19 Deena Lyn CNP [address] [place] [address] [place] [address] Referring Family Medicine 04/03/24 Hydroelectric Station Operator Relationship Specialty Start Date End Date Giovani Hagen MD [address] [place] [address] [place] [address] PCP - General Family Medicine 03/27/19 Deena Lyn CNP [address] [place] [address] [place] [address] Referring Family Medicine 04/03/24 Hydroelectric Station Operator Relationship Specialty Start Date End Date Giovani Hagen MD [address] [facility] [address] [place] [address] PCP - Medical Independence Commercial 10/22/18 04/23/99 Giovani Hagen MD [address] [facility] [address] [place] [address] PCP - General Family Medicine 08/30/22 Hydroelectric Station Operator Relationship Specialty Start Date End Date Giovani Hagen MD [address] [facility] [address] [place] [address] PCP - Medical Independence Commercial 10/22/18 04/23/99 Giovani Hagen MD [address] [facility] [address] [place] [address] PCP - General Family Medicine 08/30/22 Hydroelectric Station Operator Relationship Specialty Start Date End Date Giovani Hagen MD [address] [facility] [address] [place] [address] PCP - Medical Independence Commercial 10/22/18 04/23/99 Giovani Hagen MD [address] [facility] [address] [place] [address] PCP - General Family Medicine 08/30/22 Hydroelectric Station Operator Relationship Specialty Start Date End Date Giovani Hagen MD [address] [facility] [address] [place] [address] PCP - Medical Independence Commercial 10/22/18 04/23/99 Giovani Hagen MD [address] [facility] [address] [place] [address] PCP - General Family Medicine 08/30/22 Hydroelectric Station Operator Relationship Specialty Start Date End Date Giovani Hagen MD [address] [facility] [address] [place] [address] PCP - Medical Independence Commercial 10/22/18 04/23/99 Giovani Hagen MD [address] [facility] [address] [place] [address] PCP - General Family Medicine 08/30/22 Hydroelectric Station Operator Relationship Specialty Start Date End Date Giovani Hagen MD [address] [facility] [address] [place] [address] PCP - Medical Independence Commercial 10/22/18 04/23/99 Giovani Hagen MD [address] [facility] [address] [place] [address] PCP - General Family Medicine 08/30/22 Hydroelectric Station Operator Relationship Specialty Start Date End Date Giovani Hagen MD [address] [facility] [address] [place] [address] PCP - Medical Independence Commercial 10/22/18 04/23/99 Giovani Hagen MD [address] [facility] [address] [place] [address] PCP - General Family Medicine 08/30/22 Hydroelectric Station Operator Relationship Specialty Start Date End Date Giovani Hagen MD [address] [place] [address] [place] [address] PCP - General Family Medicine 03/27/19 Deena Lyn CNP [address] [place] [address] [place] [address] Referring Family Medicine 04/03/24 Hydroelectric Station Operator Relationship Specialty Start Date End Date Giovani Hagen MD [address] [place] [address] [place] [address] PCP - Medical Independence Commercial 10/22/18 04/23/99 Giovani Hagen MD [address] [facility] [address] [place] [address] PCP - General Family Medicine 08/30/22 Hydroelectric Station Operator Relationship Specialty Start Date End Date Giovani Hagen MD [address] [facility] [address] [place] [address] PCP - Medical Independence Commercial 10/22/18 04/23/99 Giovani Hagen MD [address] [facility] [address] [place] [address] PCP - General Family Medicine 08/30/22 Hydroelectric Station Operator Relationship Specialty Start Date End Date Giovani Hagen MD [address] [facility] [address] [place] [address] PCP - Medical Independence Commercial 10/22/18 04/23/99 Giovani Hagen MD [address] [facility] [address] [place] [address] PCP - General Family Medicine 08/30/22 Hydroelectric Station Operator Relationship Specialty Start Date End Date Giovani Hagen MD [address] [facility] [address] [place] [address] PCP - General Family Medicine 03/27/19 Deena Lyn, ISABEL [address] [place] [address] [place] [address] Referring Family Medicine 04/03/24 Hydroelectric Station Operator Relationship Specialty Start Date End Date Giovani Hagen MD [address] [place] [address] [place] [address] PCP - General Family Medicine 03/27/19 Deena Lyn CNP [address] [place] [address] [place] [address] Referring Family Medicine 04/03/24 Hydroelectric Station Operator Relationship Specialty Start Date End Date Giovani Hagen MD [address] [place] [address] [place] [address] PCP - General Family Medicine 03/27/19 Deena Lyn, ISABEL [address] [place] [address] [place] [address] Referring Family Medicine 04/03/24 Hydroelectric Station Operator Relationship Specialty Start Date End Date Giovani Hagen MD [address] [place] [address] [place] [address] PCP - Medical Independence Commercial 10/22/18 04/23/99 Giovani Hagen MD [address] [place] [address] [place] [address] PCP - General Family Medicine 08/30/22 Hydroelectric Station Operator Relationship Specialty Start Date End Date Giovani Hagen MD [address] [place] [address] [place] [address] PCP - Medical Independence Commercial 10/22/18 04/23/99 Giovani Hagen MD [address] [place] [address] [place] [address] PCP - General Family Medicine 08/30/22 Hydroelectric Station Operator Relationship Specialty Start Date End Date Giovani Hagen MD [address] [place] [address] [place] [address] PCP - General Family Medicine 03/27/19 Deena Lyn, INTEGRATION DEVELOPER [address] [place] [address] [place] [address] Referring Family Medicine 04/03/24 Hydroelectric Station Operator Relationship Specialty Start Date End Date Giovani Hagen MD [address] [place] [address] [place] [address] PCP - General Family Medicine 03/27/19 Deena Lyn, INTEGRATION DEVELOPER [address] [place] [address] [place] [address] Referring Family Medicine 04/03/24 Hydroelectric Station Operator Relationship Specialty Start Date End Date Giovani Hagen MD [address] [place] [address] [place] [address] PCP - Medical Independence Commercial 10/22/18 04/23/99 Giovani Hagen MD [address] [place] [address] [place] [address] PCP - General Family Medicine 08/30/22 Hydroelectric Station Operator Relationship Specialty Start Date End Date Giovani Hagen MD [address] [place] [address] [place] [address] PCP - Medical Independence Commercial 10/22/18 04/23/99 Giovani Hagen MD [address] [place] [address] [place] [address] PCP - General Family Medicine 08/30/22 Hydroelectric Station Operator Relationship Specialty Start Date End Date Giovani Hagen MD [address] [place] [address] [place] [address] PCP - General Family Medicine 03/27/19 Deena Lyn CNP [address] [place] [address] [place] [address] [facility] Family Medicine 04/03/24 Hydroelectric Station Operator Relationship Specialty Start Date End Date Giovani Hagen MD [address] [place] [address] [place] [address] PCP - Medical Independence Commercial 10/22/18 04/23/99 Giovani Hagen MD [address] [place] [address] [place] [address] PCP - General Family Medicine 08/30/22 Hydroelectric Station Operator Relationship Specialty Start Date End Date Giovani Hagen MD [address] [place] [address] [place] [address] PCP - Medical Independence Commercial 10/22/18 04/23/99 Giovani Hagen MD [address] [place] [address] [place] [address] PCP - General Family Medicine 08/30/22 Hydroelectric Station Operator Relationship Specialty Start Date End Date Giovani Hagen MD [address] [place] [address] [place] [address] PCP - General Family Medicine 03/27/19 Deena Lyn CNP [address] [place] [address] [place] [address] Referring Family Medicine 04/03/24 Hydroelectric Station Operator Relationship Specialty Start Date End Date Giovani Hagen MD [address] [place] [address] [place] [address] PCP - General Family Medicine 03/27/19 Deena Lyn CNP [address] [place] [address] [place] [address] Referring Family Medicine 04/03/24 Hydroelectric Station Operator Relationship Specialty Start Date End Date Giovani Hagen MD [address] [place] [address] [place] [address] PCP - Medical Independence Commercial 10/22/18 04/23/99 Giovani Hagen MD [address] [place] [address] [place] [address] PCP - General Family Medicine 08/30/22 Hydroelectric Station Operator Relationship Specialty Start Date End Date Giovani Hagen MD [address] [place] [address] [place] [address] PCP - Medical Independence Commercial 10/22/18 04/23/99 Giovani Hagen MD [address] [place] [address] [place] [address] PCP - General Family Medicine 08/30/22 Hydroelectric Station Operator Relationship Specialty Start Date End Date Giovani Hagen MD [address] [place] [address] [place] [address] PCP - Medical Independence Commercial 10/22/18 04/23/99 Giovani Hagen MD [address] [place] [address] [place] [address] PCP - General Family Medicine 08/30/22 Hydroelectric Station Operator Relationship Specialty Start Date End Date Giovani Hagen MD [address] [place] [address] [place] [address] PCP - Medical Independence Commercial 10/22/18 04/23/99 Giovani Hagen MD [address] [place] [address] [place] [address] PCP - General Family Medicine 08/30/22 Hydroelectric Station Operator Relationship Specialty Start Date End Date Giovani Hagen MD [address] [place] [address] [place] [address] PCP - Medical Independence Commercial 10/22/18 04/23/99 Giovani Hagen MD [address] [place] [address] [place] [address] PCP - General Family Medicine 08/30/22 Hydroelectric Station Operator Relationship Specialty Start Date End Date Giovani Hagen MD [address] [place] [address] [place] [address] PCP - Medical Independence Commercial 10/22/18 04/23/99 Giovani Hagen MD [address] [place] [address] [place] [address] PCP - General Family Medicine 08/30/22 Hydroelectric Station Operator Relationship Specialty Start Date End Date Giovani Hagen MD [address] [place] [address] [place] [address] PCP - Medical Independence Commercial 10/22/18 04/23/99 Giovani Hagen MD [address] [place] [address] [place] [address] PCP - General Family Medicine 08/30/22 Hydroelectric Station Operator Relationship Specialty Start Date End Date Giovani Hagen MD [address] [facility] [address] [place] [address] PCP - Medical Independence Commercial 10/22/18 04/23/99 Giovani Hagen MD [address] [facility] [address] [place] [address] PCP - General Family Medicine 08/30/22 Source Comments (unrecognize d section and content) In the event this informatio n is protected by the Federal Confidentiality of Alcohol and Drug Abuse Patient Records regulations: The Federal rules restrict any use of the information to criminally investigate or prosecute any alcohol or drug abuse patient.[facility] HospitalIn the event this information is protected by the Federal Confidentiality of Alcohol and Drug Abuse Patient Records regulations: The Federal rules restrict any use of the information to criminally investigate or prosecute any alcohol or drug abuse patient.[facility] HospitalIn the event this information is protected by the Federal Confidentiality of Alcohol and Drug Abuse Patient Records regulations: The Federal rules restrict any use of the information to criminally investigate or prosecute any alcohol or drug abuse patient.[facility] HospitalIn the event this information is protected by the Federal Confidentiality of Alcohol and Drug Abuse Patient Records regulations: The Federal rules restrict any use of the information to criminally investigate or prosecute any alcohol or drug abuse patient.[facility] HospitalIn the event this information is protected by the Federal Confidentiality of Alcohol and Drug Abuse Patient Records regulations: The Federal rules restrict any use of the information to criminally investigate or prosecute any alcohol or drug abuse patient.[facility] HospitalIn the event this information is protected by the Federal Confidentiality of Alcohol and Drug Abuse Patient Records regulations: The Federal rules restrict any use of the information to criminally investigate or prosecute any alcohol or drug abuse patient.[facility] HospitalIn the event this information is protected by the Federal Confidentiality of Alcohol and Drug Abuse Patient Records regulations: The Federal rules restrict any use of the information to criminally investigate or prosecute any alcohol or drug abuse patient.[facility] HospitalIn the event this information is protected by the Federal Confidentiality of Alcohol and Drug Abuse Patient Records regulations: The Federal rules restrict any use of the information to criminally investigate or prosecute any alcohol or drug abuse patient.[facility] HospitalIn the event this information is protected by the Federal Confidentiality of Alcohol and Drug Abuse Patient Records regulations: The Federal rules restrict any use of the information to criminally investigate or prosecute any alcohol or drug abuse patient.[facility] HospitalIn the event this information is protected by the Federal Confidentiality of Alcohol and Drug Abuse Patient Records regulations: The Federal rules restrict any use of the information to criminally investigate or prosecute any alcohol or drug abuse patient.[facility] HospitalIn the event this information is protected by the Federal Confidentiality of Alcohol and Drug Abuse Patient Records regulations: The Federal rules restrict any use of the information to criminally investigate or prosecute any alcohol or drug abuse patient.[facility] HospitalIn the event this information is protected by the Federal Confidentiality of Alcohol and Drug Abuse Patient Records regulations: The Federal rules restrict any use of the information to criminally investigate or prosecute any alcohol or drug abuse patient.[facility] HospitalIn the event this information is protected by the Federal Confidentiality of Alcohol and Drug Abuse Patient Records regulations: The Federal rules restrict any use of the information to criminally investigate or prosecute any alcohol or drug abuse patient.[facility] HospitalIn the event this information is protected by the Federal Confidentiality of Alcohol and Drug Abuse Patient Records regulations: The Federal rules restrict any use of the information to criminally investigate or prosecute any alcohol or drug abuse patient.[facility] HospitalIn the event this information is protected by the Federal Confidentiality of Alcohol and Drug Abuse Patient Records regulations: The Federal rules restrict any use of the information to criminally investigate or prosecute any alcohol or drug abuse patient.[facility] HospitalIn the event this information is protected by the Federal Confidentiality of Alcohol and Drug Abuse Patient Records regulations: The Federal rules restrict any use of the information to criminally investigate or prosecute any alcohol or drug abuse patient.[facility] HospitalIn the event this information is protected by the Federal Confidentiality of Alcohol and Drug Abuse Patient Records regulations: The Federal rules restrict any use of the information to criminally investigate or prosecute any alcohol or drug abuse patient.[facility] HospitalIn the event this information is protected by the Federal Confidentiality of Alcohol and Drug Abuse Patient Records regulations: The Federal rules restrict any use of the information to criminally investigate or prosecute any alcohol or drug abuse patient.[facility] HospitalIn the event this information is protected by the Federal Confidentiality of Alcohol and Drug Abuse Patient Records regulations: The Federal rules restrict any use of the information to criminally investigate or prosecute any alcohol or drug abuse patient.[facility] HospitalIn the event this information is protected by the Federal Confidentiality of Alcohol and Drug Abuse Patient Records regulations: The Federal rules restrict any use of the information to criminally investigate or prosecute any alcohol or drug abuse patient.[facility] HospitalIn the event this information is protected by the Federal Confidentiality of Alcohol and Drug Abuse Patient Records regulations: The Federal rules restrict any use of the information to criminally investigate or prosecute any alcohol or drug abuse patient.[facility] HospitalIn the event this information is protected by the Federal Confidentiality of Alcohol and Drug Abuse Patient Records regulations: The Federal rules restrict any use of the information to criminally investigate or prosecute any alcohol or drug abuse patient.[facility] HospitalIn the event this information is protected by the Federal Confidentiality of Alcohol and Drug Abuse Patient Records regulations: The Federal rules restrict any use of the information to criminally investigate or prosecute any alcohol or drug abuse patient.[facility] HospitalIn the event this information is protected by the Federal Confidentiality of Alcohol and Drug Abuse Patient Records regulations: The Federal rules restrict any use of the information to criminally investigate or prosecute any alcohol or drug abuse patient.[facility] HospitalIn the event this information is protected by the Federal Confidentiality of Alcohol and Drug Abuse Patient Records regulations: The Federal rules restrict any use of the information to criminally investigate or prosecute any alcohol or drug abuse patient.[facility] HospitalIn the event this information is protected by the Federal Confidentiality of Alcohol and Drug Abuse Patient Records regulations: The Federal rules restrict any use of the information to criminally investigate or prosecute any alcohol or drug abuse patient.[facility] HospitalIn the event this information is protected by the Federal Confidentiality of Alcohol and Drug Abuse Patient Records regulations: The Federal rules restrict any use of the information to criminally investigate or prosecute any alcohol or drug abuse patient.[facility] HospitalIn the event this information is protected by the Federal Confidentiality of Alcohol and Drug Abuse Patient Records regulations: The Federal rules restrict any use of the information to criminally investigate or prosecute any alcohol or drug abuse patient.[facility] HospitalIn the event this information is protected by the Federal Confidentiality of Alcohol and Drug Abuse Patient Records regulations: The Federal rules restrict any use of the information to criminally investigate or prosecute any alcohol or drug abuse patient.[facility] HospitalIn the event this information is protected by the Federal Confidentiality of Alcohol and Drug Abuse Patient Records regulations: The Federal rules restrict any use of the information to criminally investigate or prosecute any alcohol or drug abuse patient.[facility] HospitalIn the event this information is protected by the Federal Confidentiality of Alcohol and Drug Abuse Patient Records regulations: The Federal rules restrict any use of the information to criminally investigate or prosecute any alcohol or drug abuse patient.[facility] HospitalIn the event this information is protected by the Federal Confidentiality of Alcohol and Drug Abuse Patient Records regulations: The Federal rules restrict any use of the information to criminally investigate or prosecute any alcohol or drug abuse patient.[facility] HospitalIn the event this information is protected by the Federal Confidentiality of Alcohol and Drug Abuse Patient Records regulations: The Federal rules restrict any use of the information to criminally investigate or prosecute any alcohol or drug abuse patient.[facility] HospitalIn the event this information is protected by the Federal Confidentiality of Alcohol and Drug Abuse Patient Records regulations: The Federal rules restrict any use of the information to criminally investigate or prosecute any alcohol or drug abuse patient.[facility] HospitalIn the event this information is protected by the Federal Confidentiality of Alcohol and Drug Abuse Patient Records regulations: The Federal rules restrict any use of the information to criminally investigate or prosecute any alcohol or drug abuse patient.[facility] HospitalIn the event this information is protected by the Federal Confidentiality of Alcohol and Drug Abuse Patient Records regulations: The Federal rules restrict any use of the information to criminally investigate or prosecute any alcohol or drug abuse patient.[facility] HospitalIn the event this information is protected by the Federal Confidentiality of Alcohol and Drug Abuse Patient Records regulations: The Federal rules restrict any use of the information to criminally investigate or prosecute any alcohol or drug abuse patient.[facility] HospitalIn the event this information is protected by the Federal Confidentiality of Alcohol and Drug Abuse Patient Records regulations: The Federal rules restrict any use of the information to criminally investigate or prosecute any alcohol or drug abuse patient.[facility] HospitalIn the event this information is protected by the Federal Confidentiality of Alcohol and Drug Abuse Patient Records regulations: The Federal rules restrict any use of the information to criminally investigate or prosecute any alcohol or drug abuse patient.[facility] HospitalIn the event this information is protected by the Federal Confidentiality of Alcohol and Drug Abuse Patient Records regulations: The Federal rules restrict any use of the information to criminally investigate or prosecute any alcohol or drug abuse patient.[facility] HospitalIn the event this information is protected by the Federal Confidentiality of Alcohol and Drug Abuse Patient Records regulations: The Federal rules restrict any use of the information to criminally investigate or prosecute any alcohol or drug abuse patient.[facility] HospitalIn the event this information is protected by the Federal Confidentiality of Alcohol and Drug Abuse Patient Records regulations: The Federal rules restrict any use of the information to criminally investigate or prosecute any alcohol or drug abuse patient.[facility] HospitalIn the event this information is protected by the Federal Confidentiality of Alcohol and Drug Abuse Patient Records regulations: The Federal rules restrict any use of the information to criminally investigate or prosecute any alcohol or drug abuse patient.[facility] HospitalIn the event this information is protected by the Federal Confidentiality of Alcohol and Drug Abuse Patient Records regulations: The Federal rules restrict any use of the information to criminally investigate or prosecute any alcohol or drug abuse patient.[facility] HospitalIn the event this information is protected by the Federal Confidentiality of Alcohol and Drug Abuse Patient Records regulations: The Federal rules restrict any use of the information to criminally investigate or prosecute any alcohol or drug abuse patient.[facility] HospitalIn the event this information is protected by the Federal Confidentiality of Alcohol and Drug Abuse Patient Records regulations: The Federal rules restrict any use of the information to criminally investigate or prosecute any alcohol or drug abuse patient.[facility] HospitalIn the event this information is protected by the Federal Confidentiality of Alcohol and Drug Abuse Patient Records regulations: The Federal rules restrict any use of the information to criminally investigate or prosecute any alcohol or drug abuse patient.[facility] Reason for Visit (unrecogniz ed section [...] & [place] [address] [place] [address] [place] [address] Referral ID Status Reason Start Date Expiration Date V isits Requested Visits Authorized [id number] Closed Auto-Generate d Referral 05/27/2022 06/26/2023 1 [...] scheduled PT Eval 02/04 w/ Zhen Burgess, PT. Reason Onset Date Comments Lab results [...] Received Outside Medical Records [facility] Reason Comments Received Outside Medical Records Cardio Clearance [facility] Reason Comments Back Pain Reason Comments Dyspareunia [...] ligament of right ankle, subsequent encounter Procedures [place] OFFICE/OUTPATIENT NEW HIGH MDM Giovani Hagen MD [address] [facility] [address] [place] [address] Phone: tel: fax: Prateek Pedraza DPM [address] [facility] [address] [place] [address] Phone: tel: fax: Referral ID Status Reason Start Date Expiration Date V isits Requested Visits Authorized [id number] Closed Specialty Services Required 04/22/2024 10/19/2024 1 1 Reason Comments New Pain Swelling Reason Onset Date Comments Med Refill 05/08/2024 Reason Comments next steps Reason Comments Follow-up FU RT ankle- discuss surgery Reason Comments Pre-op Visit Pt present today for a pre operative visit. Pt is scheduled for a Reason Comments Results C diff Reason Comments Post-op Visit Reason Onset Date Comments Med Refill 06/03/2024 Reason Comments Anxiety Discuss FMLA paperwo rk Reason Onset Date Comments Med Refill 06/18/2024 Reason Comments Post-op 1st post- rt lateral ankle stabilization Reason Comments Foot/ankle Post-op WK 2 post op Reason Comments Painful [place] bleeding with intercourse Reason Comments Post-op 3 week post op Reason Comments Anxiety Goals (unrecognized section and content) Goals may [...] BE BASED ON THE PRIMARY CLINICAL RECORDS. [facility] [employer] provides no warranty or guarantee of the accuracy or completeness of information in this document.
[2024-07-07] MEDS: LIDOCAINE 2% JELLY 10 ML UR (18:09)
--- NOTE | 2024-07-07 18:28 | ED.ABDPAIN1 ---
HPI - Abdominal Pain General Chief Complaint: Abdominal Pain Stated Complaint: LOWER BACK AND PELVIC PAIN Time Seen by Provider: 07/07/24 17:39 Source: patient Mode of arrival: walk-in Limitations: no limitations History of Present Illness HPI narrative: The patient is coming to the ER with almost a month history at least of rectal pain, she mentioned that the pain gets worse whenever she is sitting up and sometimes she cannot even sneeze or cough without the pain, she mentioned that she has been having chronic diarrhea and she was previously diagnosed with C. difficile although she does not have currently the diarrhea at the moment that she can provide us with a sample. But the patient mentioned that the pain has been getting worse and she does use Percocet for her right lower extremity fracture and it not helping her symptoms The patient mentioned having blood in stool sometimes and denies any nausea vomiting or any other concerns, sometimes she feels that the pain extending to her pelvic area. Related Data Home Medications ?Medication ?Instructions ?Recorded ?Confirmed albuterol sulfate 90 mcg/actuation 2 inh inhalation Q4H PRN shortness 02/06/23 05/23/24 aerosol inhaler of breath or wheezing cariprazine 4.5 mg capsule 4.5 mg PO QPM 02/06/23 05/23/24 (Vraylar) epinephrine 0.3 mg/0.3 mL 0.3 ml subcut Q4H PRN anaphylaxis 02/06/23 05/23/24 injection, auto-injector ondansetron 4 mg disintegrating 4 mg PO Q8H PRN nausea and vomiting 02/28/23 05/23/24 tablet dextroamphetamine-amphetamine ER 30 mg PO QDAY 03/17/24 05/23/24 30 mg 24hr capsule,extend release escitalopram oxalate 20 mg tablet 20 mg PO QDAY 03/17/24 05/23/24 phentermine 37.5 mg tablet 37.5 mg PO QDAY 03/17/24 05/23/24 montelukast 10 mg tablet 10 mg PO DAILY 04/02/24 05/23/24 alprazolam 0.5 mg tablet 0.5 mg PO QPM 05/08/24 05/23/24 Previous Rx's ?Medication ?Instructions ?Recorded oxycodone-acetaminophen 5 mg-325 1 tab PO Q6H PRN pain 4 days #16 01/30/25 mg tablet (Percocet) tabs hydrocortisone acetate 25 mg 25 mg UT Q12H PRN hemorrhoids #12 07/07/24 rectal suppository (Anusol-HC) ea lidocaine 5 % topical cream 1 applic topical QID PRN pain #15 07/07/24 (RectiCare) grams meloxicam 15 mg tablet 15 mg PO DAILY PRN pain #10 tabs 07/07/24 Allergies Allergy/AdvReac Type Severity Reaction Status Date / Time cat dander Allergy Anaphylaxis Verified 07/07/24 17:31 Iodinated Contrast Media Allergy Hives Verified 07/07/24 17:31 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) ?R76.11 - Nonspecific reaction to tuberculin skin test without active tuberculosis (ICD-10) Postoperative nausea and vomiting ?R11.2 - Nausea with vomiting, unspecified (ICD-10) ?Z98.890 - Other specified postprocedural states (ICD-10) 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 - depression (ICD-10) Ovarian cyst ?N83.209 - Unspecified ovarian cyst, unspecified side (ICD-10) HELLP (hemolytic anemia/elev liver enzymes/low platelets in ) ?O14.20 - HELLP syndrome (HELLP), unspecified trimester (ICD-10) Gestational hypertension ?O13.9 - Gestational [-induced] hypertension without significant proteinuria, unspecified trimester (ICD-10) Dizziness ?R42 - Dizziness and giddiness (ICD-10) Vitamin D deficiency ?E55.9 - Vitamin D deficiency, unspecified (ICD-10) Urinary tract infection ?N39.0 - Urinary tract infection, site not specified (ICD-10) Urinary frequency ?R35.0 - Frequency of micturition (ICD-10) Hypercholesterolemia ?E78.00 - Pure hypercholesterolemia, unspecified (ICD-10) Osteoarthritis, knee ?M17.9 - Osteoarthritis of knee, unspecified (ICD-10) Gastroparesis ?K31.84 - Gastroparesis (ICD-10) GERD (gastroesophageal reflux disease) ?K21.9 - Gastro-esophageal reflux disease without esophagitis (ICD-10) Dysuria ?R30.0 - Dysuria (ICD-10) Enlarged thyroid ?E04.9 - Nontoxic goiter, unspecified (ICD-10) Headache ?R51.9 - Headache, unspecified (ICD-10) Skin pain ?R20.8 - Other disturbances of skin sensation (ICD-10) Sciatica ?M54.30 - Sciatica, unspecified side (ICD-10) Poor concentration ?R41.840 - Attention and concentration deficit (ICD-10) ENGLISH (nonalcoholic steatohepatitis) ?K75.81 - Nonalcoholic steatohepatitis (ENGLISH) (ICD-10) Kidney stones ?N20.0 - Calculus of kidney (ICD-10) Mood swings ?R45.86 - Emotional lability (ICD-10) Sinusitis ?J32.9 - Chronic sinusitis, unspecified (ICD-10) Insomnia ?G47.00 - Insomnia, unspecified (ICD-10) Hypersexuality ?F52.8 - Other sexual dysfunction not due to a substance or known physiological condition (ICD-10) Hyperglycemia ?R73.9 - Hyperglycemia, unspecified (ICD-10) Elevated liver enzymes ?R74.8 - Abnormal levels of other serum enzymes (ICD-10) Dysphagia ?R13.10 - Dysphagia, unspecified (ICD-10) Diverticulitis ?K57.92 - Diverticulitis of intestine, part unspecified, without perforation or abscess without bleeding (ICD-10) Bipolar 1 disorder ?F31.9 - Bipolar disorder, unspecified (ICD-10) Attention deficit hyperactivity disorder ?F90.9 - Attention-deficit hyperactivity disorder, unspecified type (ICD-10) Abnormal involuntary movement ?R25.9 - Unspecified abnormal involuntary movements (ICD-10) Endometriosis ?N80.9 - Endometriosis, unspecified (ICD-10) Dyspareunia Pelvic pain ?R10.2 - Pelvic and perineal pain (ICD-10) History of blood transfusion ?Z92.89 - Personal history of other medical treatment (ICD-10) Anemia ?D64.9 - Anemia, unspecified (ICD-10) PTSD (post-traumatic stress disorder) ?F43.10 - Post-traumatic stress disorder, unspecified (ICD-10) Depression ?F32.A - Depression, unspecified (ICD-10) Anxiety ?F41.9 - Anxiety disorder, unspecified (ICD-10) COVID-19 ?U07.1 - COVID-19 (ICD-10) Asthma ?J45.909 - Unspecified asthma, uncomplicated (ICD-10) Migraine ?G43.909 - Migraine, unspecified, not intractable, without status migrainosus (ICD-10) Heartburn ?R12 - Heartburn (ICD-10) Constipation ?K59.00 - Constipation, unspecified (ICD-10) IBS (irritable bowel syndrome) ?K58.9 - Irritable bowel syndrome without diarrhea (ICD-10) Tachycardia ?R00.0 - Tachycardia, unspecified (ICD-10) Syncope ?R55 - Syncope and collapse (ICD-10) Surgical History (Updated 04/02/24 @ 08:42 by Lindsey Quintero NP) History of cholecystectomy (03/21/23) ?Z90.49 - Acquired absence of other specified parts of digestive tract (ICD-10) History of esophagogastroduodenoscopy (EGD) ?Z98.890 - Other specified postprocedural states (ICD-10) History of colonoscopy ?Z98.890 - Other specified postprocedural states (ICD-10) History of hysterectomy ?Z90.710 - Acquired absence of both cervix and uterus (ICD-10) History of section ?Z98.891 - History of uterine scar from previous surgery (ICD-10) Family History (Updated 04/02/24 @ 08:42 by Lindsey Quintero NP) Other Family history of diabetes mellitus Family history of hypertension Family history of ovarian cancer PONV (postoperative nausea and vomiting) Social History (Updated 04/02/24 @ 08:40 by Lindsey Quintero NP) Within the past year, how often did you have a drink containing alcohol: 2-4 times a month Smoking status: Former smoker Non-prescribed substance use: cannabis (any form) 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 Highest level of school completed/degree received: high school graduate Little interest or pleasure in doing things: not at all Feeling down, depressed, or hopeless: not at all Exam Constitutional Vital Signs, click to edit/add: Last Vital Signs Temp 98.4 F 07/07/24 17:25 Pulse 100 H 07/07/24 17:25 Resp 20 07/07/24 17:25 BP 114/89 07/07/24 17:25 Pulse Ox 98 07/07/24 17:25 O2 Del Method Room Air 07/07/24 17:25 Course Vital Signs Vital signs: Vital Signs Temperature 98.4 F 07/07/24 17:25 Pulse Rate 100 H 07/07/24 17:25 Respiratory Rate 20 07/07/24 17:25 Blood Pressure 114/89 07/07/24 17:25 Pulse Oximetry 98 07/07/24 17:25 Oxygen Delivery Method Room Air 07/07/24 17:25 Temperature 98.4 F 07/07/24 17:25 Pulse Rate 100 H 07/07/24 17:25 Respiratory Rate 20 07/07/24 17:25 Blood Pressure 114/89 07/07/24 17:25 Pulse Oximetry 98 07/07/24 17:25 Oxygen Delivery Method Room Air 07/07/24 17:25 MDM - Abdominal Pain MDM Narrative Medical decision making narrative: The patient presentation right now as I explained to her that it could be secondary to anal fissure and hemorrhoid as she is very tender on examination, no fever or chills or any signs of infection and there is no rectal abscess on exam Patient was provided with lidocaine cream that helped her symptoms but she was still be discharged with RectiCare and Anusol as well as warm sitz bath Patient also provided with Mobic for pain and will stop and ibuprofen The patient also instructed about the importance of follow-up with her primary care and her wage and salary administrator for further evaluation and C. difficile in case she still have the diarrhea and she was not able to provide with any stool sample here in the ER The patient questions are answered and clarified and the patient was instructed to come back today in case of any new symptoms Abdomen examination was benign and she almost was evaluated for similar symptoms a month ago when she had a blood workup done right now with the current clinical evaluation no need for further blood workup The patient is to follow up with primary care physician in next 2-3 days or to return to the emergency department should any of the signs or symptoms worsen or new symptoms develop. The patient agrees with the following Diagnosis and Treatment plan and the patient will be discharged home. Discharge Plan Discharge Chief Complaint: Abdominal Pain Clinical Impression: Hemorrhoids, Anal fissure Patient Disposition: Home, Self-Care Time of Disposition Decision: 18:27 Condition: Good Prescriptions / Home Meds: New hydrocortisone acetate [Anusol-HC] 25 mg suppository 25 mg UT Q12H PRN (Reason: hemorrhoids) Qty: 12 0RF lidocaine [RectiCare] 5 % cream 1 applic topical QID PRN (Reason: pain) Qty: 15 0RF meloxicam 15 mg tablet 15 mg PO DAILY PRN (Reason: pain) Qty: 10 0RF Discontinued ibuprofen 800 mg tablet 800 mg PO Q8H PRN (Reason: pain) 14 Days Qty: 40 0RF No Action albuterol sulfate 90 mcg/actuation HFA aerosol inhaler 2 inh INHALATION Q4H PRN (Reason: shortness of breath or wheezing) Vraylar 4.5 mg capsule 4.5 mg PO QPM epinephrine 0.3 mg/0.3 mL auto-injector 0.3 ml subcut Q4H PRN (Reason: anaphylaxis) ondansetron 4 mg tablet,disintegrating 4 mg PO Q8H PRN (Reason: nausea and vomiting) dextroamphetamine-amphetamine 30 mg capsule,extended release 24hr 30 mg PO QDAY escitalopram oxalate 20 mg tablet 20 mg PO QDAY phentermine 37.5 mg tablet 37.5 mg PO QDAY alprazolam 0.5 mg tablet 0.5 mg PO QPM oxycodone-acetaminophen [Percocet] 5-325 mg tablet 1 tab PO Q6H PRN (Reason: pain) 4 Days Qty: 16 0RF montelukast 10 mg tablet 10 mg PO DAILY Print Language: Marshallese Instructions: Anal Fissure (ED), Sitz Bath (DC) Referrals: GIOVANI HAGEN [Primary Care Provider] - 1 week
[2024-07-07] MEDS: KETOROLAC TROMETHAMINE 30 MG/ML VIAL IM (18:51)
== END 2024-07-07 19:05 | disposition home or self-care (01) ==
PROVIDERS: Emergency Provider Emergency Medicine; PCP Family Medicine
DX: K64.8 Other hemorrhoids (principal); K60.2 Anal fissure, unspecified; Z90.49 Acquired absence of other specified parts of digestive tract; Z90.710 Acquired absence of both cervix and uterus; Z87.891 Personal history of nicotine dependence
CPT/HCPCS: 96372; 99284; J1885

== ENCOUNTER 2024-07-25 18:30 | Emergency (ER) | payer OTHER, SELFPAY ==
[2024-07-25 18:34] VITALS: BP 142/95; PULSE 88; TEMP 36.6; O2SAT 100; BMI 34.2
--- NOTE | 2024-07-25 18:41 | ED_ITS ---
HPI - Extremity Problem General Chief complaint: Extremity Problem, Nontraumatic Stated complaint: R ANKLE PAIN Time Seen by Provider: 07/25/24 18:35 Source: patient Mode of arrival: walk-in History of Present Illness HPI Narrative: Patient is a 33-year-old female who presents to the emergency department for pain control. She had surgery to her right ankle 8 weeks ago with podiatry in [place]. She states that she saw her financial examiner yesterday who told her to continue to take the ibuprofen that she has at home and wear her boot. She reports increasing pain, swelling to the right lateral malleolus. She has not had any redness, open wounds or drainage. She states when she ambulates she feels as though the right ankle gives out on her. Related Data Home Medications ?Medication ?Instructions ?Recorded ?Confirmed albuterol sulfate 90 mcg/actuation 2 inh inhalation Q4H PRN shortness 02/06/23 05/23/24 aerosol inhaler of breath or wheezing cariprazine 4.5 mg capsule 4.5 mg PO QPM 02/06/23 05/23/24 (Vraylar) epinephrine 0.3 mg/0.3 mL 0.3 ml subcut Q4H PRN anaphylaxis 02/06/23 05/23/24 injection, auto-injector ondansetron 4 mg disintegrating 4 mg PO Q8H PRN nausea and vomiting 02/28/23 05/23/24 tablet dextroamphetamine-amphetamine ER 30 mg PO QDAY 03/17/24 05/23/24 30 mg 24hr capsule,extend release escitalopram oxalate 20 mg tablet 20 mg PO QDAY 03/17/24 05/23/24 phentermine 37.5 mg tablet 37.5 mg PO QDAY 03/17/24 05/23/24 montelukast 10 mg tablet 10 mg PO DAILY 04/02/24 05/23/24 alprazolam 0.5 mg tablet 0.5 mg PO QPM 05/08/24 05/23/24 Previous Rx's ?Medication ?Instructions ?Recorded oxycodone-acetaminophen 5 mg-325 1 tab PO Q6H PRN pain 4 days #16 05/23/24 mg tablet (Percocet) tabs hydrocortisone acetate 25 mg 25 mg MT Q12H PRN hemorrhoids #12 07/07/24 rectal suppository (Anusol-HC) ea lidocaine 5 % topical cream 1 applic topical QID PRN pain #15 07/07/24 (RectiCare) grams meloxicam 15 mg tablet 15 mg PO DAILY PRN pain #10 tabs 07/07/24 ketorolac 10 mg tablet 10 mg PO TID PRN pain #10 tabs 07/25/24 Allergies Allergy/AdvReac Type Severity Reaction Status Date / Time cat dander Allergy Anaphylaxis Verified 07/07/24 17:31 Iodinated Contrast Media Allergy Hives Verified 07/07/24 17:31 Review of Systems ROS Constitutional Denies: fever or chills Ears, nose, mouth, and throat Denies: throat pain or nasal congestion Respiratory Denies: shortness of breath Gastrointestinal Denies: nausea or vomiting Musculoskeletal Reports: extremity pain Integumentary/Breast Denies: rash Neurological Denies: numbness in extremities or weakness in extremities Hematologic/Lymphatic Denies: easy bruising or easy bleeding [facility] Medical History (Updated 07/25/24 @ 19:20 by VINH Monaco) Bronchitis (04/07/24) ?J40 - Bronchitis, not specified as acute or chronic (ICD-10) 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) ?R76.11 - Nonspecific reaction to tuberculin skin test without active tuberculosis (ICD-10) Postoperative nausea and vomiting ?R11.2 - Nausea with vomiting, unspecified (ICD-10) ?Z98.890 - Other specified postprocedural states (ICD-10) 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 - depression (ICD-10) Ovarian cyst ?N83.209 - Unspecified ovarian cyst, unspecified side (ICD-10) HELLP (hemolytic anemia/elev liver enzymes/low platelets in ) ?O14.20 - HELLP syndrome (HELLP), unspecified trimester (ICD-10) Gestational hypertension ?O13.9 - Gestational [-induced] hypertension without significant proteinuria, unspecified trimester (ICD-10) Dizziness ?R42 - Dizziness and giddiness (ICD-10) Vitamin D deficiency ?E55.9 - Vitamin D deficiency, unspecified (ICD-10) Urinary tract infection ?N39.0 - Urinary tract infection, site not specified (ICD-10) Urinary frequency ?R35.0 - Frequency of micturition (ICD-10) Hypercholesterolemia ?E78.00 - Pure hypercholesterolemia, unspecified (ICD-10) Osteoarthritis, knee ?M17.9 - Osteoarthritis of knee, unspecified (ICD-10) Gastroparesis ?K31.84 - Gastroparesis (ICD-10) GERD (gastroesophageal reflux disease) ?K21.9 - Gastro-esophageal reflux disease without esophagitis (ICD-10) Dysuria ?R30.0 - Dysuria (ICD-10) Enlarged thyroid ?E04.9 - Nontoxic goiter, unspecified (ICD-10) Headache ?R51.9 - Headache, unspecified (ICD-10) Skin pain ?R20.8 - Other disturbances of skin sensation (ICD-10) Sciatica ?M54.30 - Sciatica, unspecified side (ICD-10) Poor concentration ?R41.840 - Attention and concentration deficit (ICD-10) ENGLISH (nonalcoholic steatohepatitis) ?K75.81 - Nonalcoholic steatohepatitis (ENGLISH) (ICD-10) Kidney stones ?N20.0 - Calculus of kidney (ICD-10) Mood swings ?R45.86 - Emotional lability (ICD-10) Sinusitis ?J32.9 - Chronic sinusitis, unspecified (ICD-10) Insomnia ?G47.00 - Insomnia, unspecified (ICD-10) Hypersexuality ?F52.8 - Other sexual dysfunction not due to a substance or known physiological condition (ICD-10) Hyperglycemia ?R73.9 - Hyperglycemia, unspecified (ICD-10) Elevated liver enzymes ?R74.8 - Abnormal levels of other serum enzymes (ICD-10) Dysphagia ?R13.10 - Dysphagia, unspecified (ICD-10) Diverticulitis ?K57.92 - Diverticulitis of intestine, part unspecified, without perforation or abscess without bleeding (ICD-10) Bipolar 1 disorder ?F31.9 - Bipolar disorder, unspecified (ICD-10) Attention deficit hyperactivity disorder ?F90.9 - Attention-deficit hyperactivity disorder, unspecified type (ICD-10) Abnormal involuntary movement ?R25.9 - Unspecified abnormal involuntary movements (ICD-10) Endometriosis ?N80.9 - Endometriosis, unspecified (ICD-10) Dyspareunia Pelvic pain ?R10.2 - Pelvic and perineal pain (ICD-10) History of blood transfusion ?Z92.89 - Personal history of other medical treatment (ICD-10) Anemia ?D64.9 - Anemia, unspecified (ICD-10) PTSD (post-traumatic stress disorder) ?F43.10 - Post-traumatic stress disorder, unspecified (ICD-10) Depression ?F32.A - Depression, unspecified (ICD-10) Anxiety ?F41.9 - Anxiety disorder, unspecified (ICD-10) COVID-19 ?U07.1 - COVID-19 (ICD-10) Asthma ?J45.909 - Unspecified asthma, uncomplicated (ICD-10) Migraine ?G43.909 - Migraine, unspecified, not intractable, without status migrainosus (ICD-10) Heartburn ?R12 - Heartburn (ICD-10) Constipation ?K59.00 - Constipation, unspecified (ICD-10) IBS (irritable bowel syndrome) ?K58.9 - Irritable bowel syndrome without diarrhea (ICD-10) Tachycardia ?R00.0 - Tachycardia, unspecified (ICD-10) Syncope ?R55 - Syncope and collapse (ICD-10) Surgical History (Updated 04/02/24 @ 08:42 by Lindsey Quintero NP) History of cholecystectomy (03/21/23) ?Z90.49 - Acquired absence of other specified parts of digestive tract (ICD- 10) History of esophagogastroduodenoscopy (EGD) ?Z98.890 - Other specified postprocedural states (ICD-10) History of colonoscopy ?Z98.890 - Other specified postprocedural states (ICD-10) History of hysterectomy ?Z90.710 - Acquired absence of both cervix and uterus (ICD-10) History of section ?Z98.891 - History of uterine scar from previous surgery (ICD-10) Family History (Updated 04/02/24 @ 08:42 by Lindsey Quintero NP) Other Family history of diabetes mellitus Family history of hypertension Family history of ovarian cancer PONV (postoperative nausea and vomiting) Social History Within the past year, how often did you have a drink containing alcohol: 2-4 times a month Smoking status: Former smoker Non-prescribed substance use: cannabis (any form) 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 Well-healed surgical incision with no erythema or dehiscence. No open wounds or drainage Psych: Normal mood and affect Neuro: No focal neuro deficit Skin: Warm, dry, intact Constitutional Vital Signs, click to edit/add: Last Vital Signs Temp 97.8 F 07/25/24 18:34 Pulse 88 07/25/24 18:34 Resp 18 07/25/24 18:34 BP 142/95 H 07/25/24 18:34 Pulse Ox 100 07/25/24 18:34 O2 Del Method Room Air 07/25/24 18:34 Course Vital Signs Vital signs: Vital Signs Temperature 97.8 F 07/25/24 18:34 Pulse Rate 88 07/25/24 18:34 Respiratory Rate 18 07/25/24 18:34 Blood Pressure 142/95 H 07/25/24 18:34 Pulse Oximetry 100 07/25/24 18:34 Oxygen Delivery Method Room Air 07/25/24 18:34 Temperature 97.8 F 07/25/24 18:34 Pulse Rate 88 07/25/24 18:34 Respiratory Rate 18 07/25/24 18:34 Blood Pressure 142/95 H 07/25/24 18:34 Pulse Oximetry 100 07/25/24 18:34 Oxygen Delivery Method Room Air 07/25/24 18:34 MDM - Extremity (Nontraumatic) MDM Narrative Medical decision making narrative: X-rays reviewed by the radiologist with a question of medial malleolus fracture, however this was present on previous x-rays from her initial injury. X-rays are stable. Patient was reevaluated by attending physician. At this time I do not feel additional narcotics are needed for her as her surgeon did not feel narcotics were indicated yesterday on evaluation. She was prescribed Toradol, she is encouraged to ice and elevate the ankle and follow-up with her surgeon. Return to the ER if symptoms change or worsen. SHARED APC VISIT, PHYSICIAN ATTESTATION: [id number] I performed a substantive part of the MDM during the patient?s E/M visit. I personally evaluated and examined the patient. I personally made or approved the documented management plan and acknowledge its risk of complications. Medical Records Attestation: I reviewed the patient's medical records. Imaging Data XR ankle: Attestation: I have reviewed the pertinent imaging results. Discharge Plan Discharge Chief Complaint: Extremity Problem, Nontraumatic Clinical Impression: Pain in right ankle Patient Disposition: Home, Self-Care Time of Disposition Decision: 19:20 Condition: Good Prescriptions / Home Meds: New ketorolac 10 mg tablet 10 mg PO TID PRN (Reason: pain) Qty: 10 0RF No Action albuterol sulfate 90 mcg/actuation HFA aerosol inhaler 2 inh INHALATION Q4H PRN (Reason: shortness of breath or wheezing) Vraylar 4.5 mg capsule 4.5 mg PO QPM epinephrine 0.3 mg/0.3 mL auto-injector 0.3 ml subcut Q4H PRN (Reason: anaphylaxis) ondansetron 4 mg tablet,disintegrating 4 mg PO Q8H PRN (Reason: nausea and vomiting) dextroamphetamine-amphetamine 30 mg capsule,extended release 24hr 30 mg PO QDAY escitalopram oxalate 20 mg tablet 20 mg PO QDAY phentermine 37.5 mg tablet 37.5 mg PO QDAY alprazolam 0.5 mg tablet 0.5 mg PO QPM oxycodone-acetaminophen [Percocet] 5-325 mg tablet 1 tab PO Q6H PRN (Reason: pain) 4 Days Qty: 16 0RF montelukast 10 mg tablet 10 mg PO DAILY hydrocortisone acetate [Anusol-HC] 25 mg suppository 25 mg MT Q12H PRN (Reason: hemorrhoids) Qty: 12 0RF lidocaine [RectiCare] 5 % cream 1 applic topical QID PRN (Reason: pain) Qty: 15 0RF meloxicam 15 mg tablet 15 mg PO DAILY PRN (Reason: pain) Qty: 10 0RF Print Language: [place] Citizen Instructions: Arthralgia (ED) Additional Instructions: Please follow up with your surgeon Do not take ketorolac with any NSAIDS Referrals: GIOVANI HAGEN [Primary Care Provider] - 1 week
--- NOTE | 2024-07-25 18:41 | PC.NURSE ---
previous ankle surgery 8 wks ago appears to be healing with no s/s of infection. pt saw orthopedic surgeon yesterday and appt was fine. Orthopedic surgeon suggest to pt to take Ibuprofen and elevate with rest per pt.
== END 2024-07-25 19:41 | disposition home or self-care (01) ==
PROVIDERS: Emergency Provider Emergency Medicine; PCP Family Medicine
DX: M25.571 Pain in right ankle and joints of right foot (principal); Z90.49 Acquired absence of other specified parts of digestive tract; Z90.710 Acquired absence of both cervix and uterus; Z87.891 Personal history of nicotine dependence
CPT/HCPCS: 73610; 99283

== ENCOUNTER 2024-08-14 22:07 | Inpatient (IN) | payer OTHER, SELFPAY ==
[2024-08-14] VITALS (11 sets, daily range): BP systolic 128–160; BP diastolic 87–108; PULSE 98–110; TEMP 36.3; O2SAT 88–98
--- NOTE | 2024-08-14 22:14 | ED.OVERDOSE1 ---
HPI HPI - Overdose General Chief Complaint: Altered Mental Status Stated Complaint: UNRESPONSIVE Time Seen by Provider: 08/14/24 22:14 History of Present Illness HPI Narrative: found unresponsive at home. Loi states she takes several mental health medications and they also smelled alcohol on her. They gave 4mg Narcan without response. They states they placed a nasal airway and she pulled it out. No other history available at this time Related Data Home Medications ?Medication ?Instructions ?Recorded ?Confirmed albuterol sulfate 90 mcg/actuation 2 inh inhalation Q4H PRN shortness 02/06/23 05/23/24 aerosol inhaler of breath or wheezing cariprazine 4.5 mg capsule 4.5 mg PO QPM 02/06/23 05/23/24 (Vraylar) epinephrine 0.3 mg/0.3 mL 0.3 ml subcut Q4H PRN anaphylaxis 02/06/23 05/23/24 injection, auto-injector ondansetron 4 mg disintegrating 4 mg PO Q8H PRN nausea and vomiting 02/28/23 05/23/24 tablet dextroamphetamine-amphetamine ER 30 mg PO QDAY 03/17/24 05/23/24 30 mg 24hr capsule,extend release escitalopram oxalate 20 mg tablet 20 mg PO QDAY 03/17/24 05/23/24 phentermine 37.5 mg tablet 37.5 mg PO QDAY 03/17/24 05/23/24 montelukast 10 mg tablet 10 mg PO DAILY 04/02/24 05/23/24 alprazolam 0.5 mg tablet 0.5 mg PO QPM 05/08/24 05/23/24 cephalexin 250 mg capsule 250 mg PO DAILY PRN UTI PREVENTION 08/14/24 08/15/24 clomipramine 25 mg capsule 25 mg PO .QHS 08/14/24 08/15/24 dextroamphetamine-amphetamine ER 10 mg PO DAILY 08/14/24 08/15/24 10 mg 24hr capsule,extend release dextroamphetamine-amphetamine ER 30 mg PO DAILY 08/14/24 08/15/24 30 mg 24hr capsule,extend release fluticasone fur. 100 mcg-umeclid 1 inh inhalation DAILY 08/14/24 08/15/24 62.5 mcg-vilant 25 mcg inhalat.powder (Trelegy Ellipta) lorazepam 1 mg tablet 1 mg PO BID 08/14/24 08/15/24 metoprolol succinate 25 mg 25 mg PO DAILY 08/14/24 08/15/24 tablet,extended release 24 hr montelukast 10 mg tablet 10 mg PO .QHS 08/14/24 08/15/24 tizanidine 4 mg tablet 4 mg PO Q6H PRN muscle spasticity 08/14/24 08/15/24 albuterol sulfate 90 mcg/actuation 2 puff inhalation Q6H PRN 08/15/24 08/15/24 aerosol inhaler shortness of breath or wheezing clomipramine 50 mg capsule 50 mg PO .QHS 08/15/24 08/15/24 Previous Rx's ?Medication ?Instructions ?Recorded oxycodone-acetaminophen 5 mg-325 1 tab PO Q6H PRN pain 4 days #16 05/23/24 mg tablet (Percocet) tabs hydrocortisone acetate 25 mg 25 mg OR Q12H PRN hemorrhoids #12 07/07/24 rectal suppository (Anusol-HC) ea lidocaine 5 % topical cream 1 applic topical QID PRN pain #15 07/07/24 (RectiCare) grams meloxicam 15 mg tablet 15 mg PO DAILY PRN pain #10 tabs 07/07/24 ketorolac 10 mg tablet 10 mg PO TID PRN pain #10 tabs 07/25/24 Allergies Allergy/AdvReac Type Severity Reaction Status Date / Time cat dander Allergy Anaphylaxis Verified 08/15/24 14:49 Iodinated Contrast Media Allergy Hives Verified 08/15/24 14:49 Opioid HPI Opioid Management Most Recent Opioid Data: Last Pain Scale 4 05/23/24 16:10 05/23/24 Last Pain Assessment 08/15/24 20:06 Last ORT Total Score 9 08/15/24 07:32 08/15/24 Last ORT Risk Category High Risk 08/15/24 07:32 08/15/24 Ur Phencyclidine Scrn Negative (NEGATIVE) 08/14/24 22:30 08/14/24 Review of Systems ROS Status of ROS unobtainable due to mental status PFSH [facility] Medical History (Updated 08/15/24 @ 14:49 by Lauren Denny) Bronchitis (04/07/24) ?J40 - Bronchitis, not specified as acute or chronic (ICD-10) HTN (hypertension) ?I10 - Essential (primary) hypertension (ICD-10) Prediabetes ?R73.03 - Prediabetes (ICD-10) Suicidal ideation ?R45.851 - Suicidal ideations (ICD-10) Depression ?F32.A - Depression, unspecified (ICD-10) Anxiety ?F41.9 - Anxiety disorder, unspecified (ICD-10) 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) ?R76.11 - Nonspecific reaction to tuberculin skin test without active tuberculosis (ICD-10) Postoperative nausea and vomiting ?R11.2 - Nausea with vomiting, unspecified (ICD-10) ?Z98.890 - Other specified postprocedural states (ICD-10) 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 - depression (ICD-10) Ovarian cyst ?N83.209 - Unspecified ovarian cyst, unspecified side (ICD-10) HELLP (hemolytic anemia/elev liver enzymes/low platelets in ) ?O14.20 - HELLP syndrome (HELLP), unspecified trimester (ICD-10) Gestational hypertension ?O13.9 - Gestational [-induced] hypertension without significant proteinuria, unspecified trimester (ICD-10) Dizziness ?R42 - Dizziness and giddiness (ICD-10) Vitamin D deficiency ?E55.9 - Vitamin D deficiency, unspecified (ICD-10) Urinary tract infection ?N39.0 - Urinary tract infection, site not specified (ICD-10) Urinary frequency ?R35.0 - Frequency of micturition (ICD-10) Hypercholesterolemia ?E78.00 - Pure hypercholesterolemia, unspecified (ICD-10) Osteoarthritis, knee ?M17.9 - Osteoarthritis of knee, unspecified (ICD-10) Gastroparesis ?K31.84 - Gastroparesis (ICD-10) GERD (gastroesophageal reflux disease) ?K21.9 - Gastro-esophageal reflux disease without esophagitis (ICD-10) Dysuria ?R30.0 - Dysuria (ICD-10) Enlarged thyroid ?E04.9 - Nontoxic goiter, unspecified (ICD-10) Headache ?R51.9 - Headache, unspecified (ICD-10) Skin pain ?R20.8 - Other disturbances of skin sensation (ICD-10) Sciatica ?M54.30 - Sciatica, unspecified side (ICD-10) Poor concentration ?R41.840 - Attention and concentration deficit (ICD-10) ENGLISH (nonalcoholic steatohepatitis) ?K75.81 - Nonalcoholic steatohepatitis (ENGLISH) (ICD-10) Kidney stones ?N20.0 - Calculus of kidney (ICD-10) Mood swings ?R45.86 - Emotional lability (ICD-10) Sinusitis ?J32.9 - Chronic sinusitis, unspecified (ICD-10) Insomnia ?G47.00 - Insomnia, unspecified (ICD-10) Hypersexuality ?F52.8 - Other sexual dysfunction not due to a substance or known physiological condition (ICD-10) Hyperglycemia ?R73.9 - Hyperglycemia, unspecified (ICD-10) Elevated liver enzymes ?R74.8 - Abnormal levels of other serum enzymes (ICD-10) Dysphagia ?R13.10 - Dysphagia, unspecified (ICD-10) Diverticulitis ?K57.92 - Diverticulitis of intestine, part unspecified, without perforation or abscess without bleeding (ICD-10) Bipolar 1 disorder ?F31.9 - Bipolar disorder, unspecified (ICD-10) Attention deficit hyperactivity disorder ?F90.9 - Attention-deficit hyperactivity disorder, unspecified type (ICD-10) Abnormal involuntary movement ?R25.9 - Unspecified abnormal involuntary movements (ICD-10) Endometriosis ?N80.9 - Endometriosis, unspecified (ICD-10) Dyspareunia Pelvic pain ?R10.2 - Pelvic and perineal pain (ICD-10) History of blood transfusion ?Z92.89 - Personal history of other medical treatment (ICD-10) Anemia ?D64.9 - Anemia, unspecified (ICD-10) PTSD (post-traumatic stress disorder) ?F43.10 - Post-traumatic stress disorder, unspecified (ICD-10) Depression ?F32.A - Depression, unspecified (ICD-10) Anxiety ?F41.9 - Anxiety disorder, unspecified (ICD-10) COVID-19 ?U07.1 - COVID-19 (ICD-10) Asthma ?J45.909 - Unspecified asthma, uncomplicated (ICD-10) Migraine ?G43.909 - Migraine, unspecified, not intractable, without status migrainosus (ICD-10) Heartburn ?R12 - Heartburn (ICD-10) Constipation ?K59.00 - Constipation, unspecified (ICD-10) IBS (irritable bowel syndrome) ?K58.9 - Irritable bowel syndrome without diarrhea (ICD-10) Tachycardia ?R00.0 - Tachycardia, unspecified (ICD-10) Syncope ?R55 - Syncope and collapse (ICD-10) Surgical History (Updated 08/15/24 @ 14:49 by Lauren Denny) History of ankle surgery ?Z98.890 - Other specified postprocedural states (ICD-10) Hx of cholecystectomy ?Z90.49 - Acquired absence of other specified parts of digestive tract (ICD-10) History of cholecystectomy (03/21/23) ?Z90.49 - Acquired absence of other specified parts of digestive tract (ICD-10) History of esophagogastroduodenoscopy (EGD) ?Z98.890 - Other specified postprocedural states (ICD-10) History of colonoscopy ?Z98.890 - Other specified postprocedural states (ICD-10) History of hysterectomy ?Z90.710 - Acquired absence of both cervix and uterus (ICD-10) History of section ?Z98.891 - History of uterine scar from previous surgery (ICD-10) Family History (System 08/15/24 @ 14:49 by Lauren Denny) Other Family history of diabetes mellitus Family history of hypertension Family history of ovarian cancer PONV (postoperative nausea and vomiting) Social History (System 08/15/24 @ 14:49 by Lauren Denny) Within the past year, how often did you have a drink containing alcohol: 2-4 times a month Smoking status: Former smoker Non-prescribed substance use: cannabis (any form) 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 Highest level of school completed/degree received: high school graduate Little interest or pleasure in doing things: not at all Feeling down, depressed, or hopeless: not at all Exam Constitutional Vital Signs, click to edit/add: Last Vital Signs Temp 97.6 F 08/15/24 20:08 Pulse 100 H 08/15/24 20:09 Resp 15 08/15/24 20:09 BP 132/88 08/15/24 20:08 Pulse Ox 97 08/15/24 20:08 O2 Del Method Room Air 08/15/24 20:08 General appearance: lethargic [facility] Common normals: normocephalic and head/scalp atraumatic Eye Common normals: PERRL and EOMs intact bilaterally Respiratory Other: stridorous respirations. nasal airway placed and this cleared up Cardio Common normals: S1 normal heart sound and S2 normal heart sound Rate: tachycardic GI Common normals: soft to palpation Neuro Other: responds appropriately to pain stimuli Course Vital Signs Vital signs: Vital Signs Pulse Rate 104 H 08/14/24 22:32 Respiratory Rate 18 08/14/24 22:32 Blood Pressure 140/87 08/14/24 22:32 Temperature 97.6 F 08/15/24 20:08 Pulse Rate 100 H 08/15/24 20:09 Respiratory Rate 15 08/15/24 20:09 Blood Pressure 132/88 08/15/24 20:08 Pulse Oximetry 97 08/15/24 20:08 Oxygen Delivery Method Room Air 08/15/24 20:08 MDM - Overdose MDM Narrative Medical decision making narrative: patient arrives stuporous and responsive to painful stimuli only. she would wake up to try and pull out nasal airway but immediately pass out again. Breathing spontaneously. History of alcohol abuse. states she text him about plans to harm herself. he had to break into the bathroom and found her unresponsive with 6 empty beer cans. States she normally drinks more than 6 beers and 6 beers would not cause her to become unresponsive. He brought in her pill bottles. Her pills are all accounted for except for ativan. She was prescribed 60 pills 08/01/24 and only has 2 left. She does smoke marijuana. CT brain and cxray without acute findings. Urine drug screen positive for benzo, amphetamine and THC. BAL 177. CBC and BMP WNL. mild elevation of LFTs. venous Ph 7.3 patient observed in the ER for over 3 hours and has remained stable. [place] slip filled out for apparent suicide attempt. Patient accepted by hospitalist service Lab Data Labs: Lab Results 08/14/24 08/14/24 08/14/24 Range/Units 22:25 22:30 22:35 WBC 7.2 (4.0-11.0) 10^3/uL RBC 4.74 (4.20-5.40) 10^6/uL Hgb 15.2 (12.0-16.0) g/dL Hct 45.3 (36.0-48.0) % MCV 95.6 (81.0-99.0) fL MCH 32.1 (26.7-34.0) pg MCHC 33.6 (29.9-35.2) g/dL RDW 11.9 (11.0-15.0) % Plt Count 236 (150-450) 10^3/uL MPV 10.8 (9.5-13.5) fL Neut % (Auto) 49.9 (43.0-75.0) % Lymph % (Auto) 40.7 (20.5-60.0) % [place] % (Auto) 6.4 (1.7-12.0) % Eos % (Auto) 1.8 (0.9-7.0) % Baso % (Auto) 0.4 (0.2-2.0) % Neut # (Auto) 3.6 (1.4-6.5) 10^3/uL Lymph # (Auto) 2.9 (1.2-3.8) 10^3/uL [place] # (Auto) 0.5 (0.3-0.8) 10^3/uL Eos # (Auto) 0.1 (0.0-0.7) 10^3/uL Baso # (Auto) 0.0 (0.0-0.1) 10^3/uL Abs Immat Gran (auto) 0.06 H (0.00-0.03) 10^3/uL Imm/Tot Granulo (auto) 0.8 H (0.0-0.5) % VBG pH (7.330-7.430) VBG pCO2 (40.0-52.0) mmHg Sodium 141 (136-145) mmol/L Potassium 3.4 L (3.5-5.1) mmol/L Chloride 103 (98-107) mmol/L Carbon Dioxide 26.5 (21.0-32.0) mmol/L Anion Gap 14.9 BUN 5.0 L (7.0-18.0) mg/dL Creatinine 0.91 (0.55-1.02) mg/dL Est GFR ( Amer) >60 (>=60 mL/min/1.73m^2) Est GFR (Non-Af Amer) >60 (>=60 mL/min/1.73m^2) BUN/Creatinine Ratio 5.5 Glucose 99 (74-106) mg/dL Lactate 1.9 (0.4-2.0) mmol/L Calcium 8.8 (8.5-10.1) mg/dL Magnesium (1.8-2.4) mg/dL Total Bilirubin 0.3 (0.2-1.0) mg/dL Direct Bilirubin (0.0-0.2) mg/dL AST 52 H (15-37) U/L ALT 100 H (14-59) U/L Alkaline Phosphatase 125 H (46-116) U/L Troponin I High Sens <4.0 L (4.0-51.3) pg/mL Total Protein 7.5 (6.4-8.2) g/dL Albumin 3.9 (3.4-5.0) g/dL Globulin 3.6 g/dL Albumin/Globulin Ratio 1.1 Urine Color Lt. yellow (YELLOW) Urine Clarity Clear (CLEAR) Urine pH 6.0 (5.0-9.0) Ur Specific [place] <=1.005 A (1.005-1.025) Urine Protein Negative (NEG/TRACE) mg/dL Urine Glucose (UA) Negative (NEGATIVE) mg/dL Urine Ketones Negative (NEGATIVE) mg/dL Urine Occult Blood Negative (NEGATIVE) Urine Nitrite Negative (NEGATIVE) Urine Bilirubin Negative (NEGATIVE) Urine Urobilinogen 0.2 (0.2-1.0) EU/dL Ur Leukocyte Esterase Negative (NEGATIVE) Urine RBC None seen (0-2) #/HPF Urine WBC 0-2 A (NONE SEEN) #/HPF Ur Squamous Epith Cells Rare (NONE/RARE) #/LPF Urine Crystals None seen (None Seen) #/HPF Urine Bacteria None seen (NONE SEEN) #/HPF Urine Casts None seen (NONE SEEN) #/LPF Urine Mucus None seen (NONE SEEN) Ur Culture Indicated? No Urine Opiates Screen Negative (NEGATIVE) Ur Buprenorphine Scrn Negative (NEGATIVE) Ur Oxycodone Screen Negative (NEGATIVE) Urine Methadone Screen Negative (NEGATIVE) Acetaminophen <2.0 L (10.0-30.0) ug/mL Ur Barbiturates Screen Negative (NEGATIVE) Phenytoin <0.5 L (10.0-20.0) ug/mL U Tricyclic Antidepress Negative (NEGATIVE) Ur Phencyclidine Scrn Negative (NEGATIVE) Ur Amphetamines Screen Positive A (NEGATIVE) U Methamphetamines Scrn Negative (NEGATIVE) U Benzodiazepines Scrn Positive A (NEGATIVE) Urine Cocaine Screen Negative (NEGATIVE) U Cannabinoids Screen Positive A (NEGATIVE) Ethanol Quant 177 mg/dL POC Glucose 107 H (74-106) mg/dL 08/14/24 08/15/24 Range/Units 22:51 05:44 WBC 6.5 (4.0-11.0) 10^3/uL RBC 4.50 (4.20-5.40) 10^6/uL Hgb 14.4 (12.0-16.0) g/dL Hct 43.1 (36.0-48.0) % MCV 95.8 (81.0-99.0) fL MCH 32.0 (26.7-34.0) pg MCHC 33.4 (29.9-35.2) g/dL RDW 12.2 (11.0-15.0) % Plt Count 207 (150-450) 10^3/uL MPV 10.6 (9.5-13.5) fL Neut % (Auto) 49.3 (43.0-75.0) % Lymph % (Auto) 42.2 (20.5-60.0) % [place] % (Auto) 6.0 (1.7-12.0) % Eos % (Auto) 1.7 (0.9-7.0) % Baso % (Auto) 0.3 (0.2-2.0) % Neut # (Auto) 3.2 (1.4-6.5) 10^3/uL Lymph # (Auto) 2.7 (1.2-3.8) 10^3/uL [place] # (Auto) 0.4 (0.3-0.8) 10^3/uL Eos # (Auto) 0.1 (0.0-0.7) 10^3/uL Baso # (Auto) 0.0 (0.0-0.1) 10^3/uL Abs Immat Gran (auto) 0.03 (0.00-0.03) 10^3/uL Imm/Tot Granulo (auto) 0.5 (0.0-0.5) % VBG pH 7.321 L (7.330-7.430) VBG pCO2 51.4 (40.0-52.0) mmHg Sodium 139 (136-145) mmol/L Potassium 3.6 (3.5-5.1) mmol/L Chloride 106 (98-107) mmol/L Carbon Dioxide 25.6 (21.0-32.0) mmol/L Anion Gap 11.0 BUN 5.0 L (7.0-18.0) mg/dL Creatinine 0.77 (0.55-1.02) mg/dL Est GFR ( Amer) >60 (>=60 mL/min/1.73m^2) Est GFR (Non-Af Amer) >60 (>=60 mL/min/1.73m^2) BUN/Creatinine Ratio 6.5 Glucose 94 (74-106) mg/dL Lactate (0.4-2.0) mmol/L Calcium 8.1 L (8.5-10.1) mg/dL Magnesium 2.0 (1.8-2.4) mg/dL Total Bilirubin 0.3 (0.2-1.0) mg/dL Direct Bilirubin 0.1 (0.0-0.2) mg/dL AST 46 H (15-37) U/L ALT 89 H (14-59) U/L Alkaline Phosphatase 111 (46-116) U/L Troponin I High Sens (4.0-51.3) pg/mL Total Protein 6.7 (6.4-8.2) g/dL Albumin 3.5 (3.4-5.0) g/dL Globulin 3.2 g/dL Albumin/Globulin Ratio 1.1 Urine Color (YELLOW) Urine Clarity (CLEAR) Urine pH (5.0-9.0) Ur Specific [place] (1.005-1.025) Urine Protein (NEG/TRACE) mg/dL Urine Glucose (UA) (NEGATIVE) mg/dL Urine Ketones (NEGATIVE) mg/dL Urine Occult Blood (NEGATIVE) Urine Nitrite (NEGATIVE) Urine Bilirubin (NEGATIVE) Urine Urobilinogen (0.2-1.0) EU/dL Ur Leukocyte Esterase (NEGATIVE) Urine RBC (0-2) #/HPF Urine WBC (NONE SEEN) #/HPF Ur Squamous Epith Cells (NONE/RARE) #/LPF Urine Crystals (None Seen) #/HPF Urine Bacteria (NONE SEEN) #/HPF Urine Casts (NONE SEEN) #/LPF Urine Mucus (NONE SEEN) Ur Culture Indicated? Urine Opiates Screen (NEGATIVE) Ur Buprenorphine Scrn (NEGATIVE) Ur Oxycodone Screen (NEGATIVE) Urine Methadone Screen (NEGATIVE) Acetaminophen (10.0-30.0) ug/mL Ur Barbiturates Screen (NEGATIVE) Phenytoin (10.0-20.0) ug/mL U Tricyclic Antidepress (NEGATIVE) Ur Phencyclidine Scrn (NEGATIVE) Ur Amphetamines Screen (NEGATIVE) U Methamphetamines Scrn (NEGATIVE) U Benzodiazepines Scrn (NEGATIVE) Urine Cocaine Screen (NEGATIVE) U Cannabinoids Screen (NEGATIVE) Ethanol Quant mg/dL POC Glucose (74-106) mg/dL Critical Care Time Critical Care Time Total Critical Care Time: 45 Discharge Plan Discharge Chief Complaint: Altered Mental Status Clinical Impression: Alcoholic intoxication, Suicide attempt, Benzodiazepine overdose, Laceration of left wrist Patient Disposition: Admitted as Observation Discharge Date/Time: 08/15/24 07:34
[2024-08-14] MEDS: NALOXONE HCL 2 MG/2 ML SYRINGE 4 MG IV (22:30)
[2024-08-14] MEDS: 0.9 % SODIUM CHLORIDE 1,000 ML 999 ML IV (22:30)
[2024-08-14 22:33] LABS: Basophils Percent Auto 0.4 % (0.2-2.0); Eosinophils Absolute Auto 0.1 10^3/uL (0.0-0.7); Eosinophils Percent Auto 1.8 % (0.9-7.0); Hematocrit 45.3 % (36.0-48.0); Hemoglobin 15.2 g/dL (12.0-16.0); Immature Granulocytes Abs Auto 0.06 10^3/uL (0.00-0.03); Immature Granulocytes Pct Auto 0.8 % (0.0-0.5); Lymphocytes Absolute Auto 2.9 10^3/uL (1.2-3.8); Lymphocytes Percent Auto 40.7 % (20.5-60.0); Mean Corpuscular HGB Conc 33.6 g/dL (29.9-35.2); Mean Corpuscular Hemoglobin 32.1 pg (26.7-34.0); Mean Corpuscular Volume 95.6 fL (81.0-99.0); Mean Platelet Volume 10.8 fL (9.5-13.5); Monocytes Absolute Auto 0.5 10^3/uL (0.3-0.8); Monocytes Percent Auto 6.4 % (1.7-12.0); Neutrophils Absolute Auto 3.6 10^3/uL (1.4-6.5); Neutrophils Percent Auto 49.9 % (43.0-75.0); Platelet Count 236 10^3/uL (150-450); Red Blood Count 4.74 10^6/uL (4.20-5.40); Red Cell Distribution Width 11.9 % (11.0-15.0); White Blood Count 7.2 10^3/uL (4.0-11.0)
[2024-08-14 22:34] LABS: Bilirubin Urine NEGATIVE (NEGATIVE); Blood Urine NEGATIVE (NEGATIVE); Clarity Urine CLEAR (CLEAR); Color Urine LT. YELLOW (YELLOW); Glucose Urine UA NEGATIVE (NEGATIVE); Ketones Urine NEGATIVE (NEGATIVE); Leukocyte Esterase Urine NEGATIVE (NEGATIVE); Nitrite Urine NEGATIVE (NEGATIVE); Protein Urine NEGATIVE (NEG/TRACE); Specific Gravity Urine <=1.005 (1.005-1.025); Urobilinogen Urine 0.2 EU/dL (0.2-1.0)
[2024-08-14 22:37] LABS: Glucometer 107 mg/dL (74-106)
[2024-08-14 22:41] LABS: Bacteria Urine NONE SEEN #/HPF (NONE SEEN); Cast Seen? NONE SEEN #/LPF (NONE SEEN); Crystals Seen? None Seen #/HPF (None Seen); Mucus Urine NONE SEEN (NONE SEEN); RBC Urine NONE SEEN #/HPF (0-2); Squamous Epithelial Cell Urine RARE #/LPF (NONE/RARE); Urine Culture Indicated NO; WBC Urine 0-2 #/HPF (NONE SEEN)
[2024-08-14 22:53] LABS: Alanine Aminotransferase 100 U/L (14-59); Albumin Globulin Ratio 1.1; Albumin Level 3.9 g/dL (3.4-5.0); Alkaline Phosphatase 125 U/L (46-116); Anion Gap 14.9; Aspartate Amino Transferase 52 U/L (15-37); BUN Creatinine Ratio 5.5; Bilirubin Total 0.3 mg/dL (0.2-1.0); Calcium 8.8 mg/dL (8.5-10.1); Carbon Dioxide 26.5 mmol/L (21.0-32.0); Chloride 103 mmol/L (98-107); Estimated GFR (African America >60 (>=60 mL/min/1.73m^2); Estimated GFR (Non-African Ame >60 (>=60 mL/min/1.73m^2); Globulin 3.6 g/dL; Glucose 99 mg/dL (74-106); Potassium 3.4 mmol/L (3.5-5.1); Sodium 141 mmol/L (136-145); Total Protein 7.5 g/dL (6.4-8.2)
[2024-08-14 22:56] LABS: Acetaminophen <2.0 ug/mL (10.0-30.0); Ethanol 177 mg/dL; Troponin I High Sensitivity <4.0 pg/mL (4.0-51.3)
[2024-08-14 22:57] LABS: Phenytoin Dilantin <0.5 ug/mL (10.0-20.0)
[2024-08-14 22:59] LABS: PCO2 VBG 51.4 mmHg (40.0-52.0); pH VBG 7.321 (7.330-7.430)
[2024-08-14 23:09] LABS: Lactate/Lactic Acid 1.9 mmol/L (0.4-2.0)
[2024-08-14 23:50] LABS: Amphetamine Screen Urine POSITIVE (NEGATIVE); Benzodiazepines Screen Urine POSITIVE (NEGATIVE); Cannabinoid Screen Urine POSITIVE (NEGATIVE); Cocaine Screen Urine NEGATIVE (NEGATIVE); Methamphetamines Screen Urine NEGATIVE (NEGATIVE); Opiate Screen Urine NEGATIVE (NEGATIVE); Phencyclidine Screen Urine NEGATIVE (NEGATIVE); Tricyclic Antidepressant Urine NEGATIVE (NEGATIVE)
[2024-08-14 23:51] LABS: Barbiturates Screen Urine NEGATIVE (NEGATIVE); Buprenorphine Screen Urine NEGATIVE (NEGATIVE); Methadone Screen Urine NEGATIVE (NEGATIVE); Oxycodone Screen Urine NEGATIVE (NEGATIVE)
--- NOTE | 2024-08-14 23:58 | PC.NURSE ---
Patient arrived to ED by EMS after being found unresponsive by her . is at bedside, reports that he was out of the house with their children and the patient started texting him about wanting to end her life, she was also texting other family members. states that the patient takes several medications for depression and anxiety as well as Adderall and that she frequently drinks alcohol to help her sleep.. He says that she does have a counselor and was supposed to have an appointment today, but when she went for her appointment, there had been a mix up with the schedule and she was not able to be seen. states that he tried to get her to come to the hospital at that time to be evaluated because she was very depressed and said that she just needed to talk to someone, but she got angry with him and would not come. She has a small, superficial cut to her left wrist, says there was a razor blade next to her in the bathroom when he found her.
[2024-08-15] VITALS (141 sets, daily range): BP systolic 94–158; BP diastolic 74–119; PULSE 74–113; TEMP 36.4–36.6; O2SAT 85–100; BMI 30.1
[2024-08-15] MEDS: LACTATED RINGER'S SOLUTION 1,000 ML 125 ML IV ×3 (03:31→18:36)
[2024-08-15 05:48] LABS: Basophils Percent Auto 0.3 % (0.2-2.0); Eosinophils Absolute Auto 0.1 10^3/uL (0.0-0.7); Eosinophils Percent Auto 1.7 % (0.9-7.0); Hematocrit 43.1 % (36.0-48.0); Hemoglobin 14.4 g/dL (12.0-16.0); Immature Granulocytes Abs Auto 0.03 10^3/uL (0.00-0.03); Immature Granulocytes Pct Auto 0.5 % (0.0-0.5); Lymphocytes Absolute Auto 2.7 10^3/uL (1.2-3.8); Lymphocytes Percent Auto 42.2 % (20.5-60.0); Mean Corpuscular HGB Conc 33.4 g/dL (29.9-35.2); Mean Corpuscular Volume 95.8 fL (81.0-99.0); Mean Platelet Volume 10.6 fL (9.5-13.5); Monocytes Absolute Auto 0.4 10^3/uL (0.3-0.8); Neutrophils Absolute Auto 3.2 10^3/uL (1.4-6.5); Neutrophils Percent Auto 49.3 % (43.0-75.0); Platelet Count 207 10^3/uL (150-450); Red Cell Distribution Width 12.2 % (11.0-15.0); White Blood Count 6.5 10^3/uL (4.0-11.0)
[2024-08-15 05:59] LABS: BUN Creatinine Ratio 6.5; Calcium 8.1 mg/dL (8.5-10.1); Carbon Dioxide 25.6 mmol/L (21.0-32.0); Chloride 106 mmol/L (98-107); Estimated GFR (African America >60 (>=60 mL/min/1.73m^2); Estimated GFR (Non-African Ame >60 (>=60 mL/min/1.73m^2); Glucose 94 mg/dL (74-106); Potassium 3.6 mmol/L (3.5-5.1); Sodium 139 mmol/L (136-145)
[2024-08-15 07:06] LABS: Alanine Aminotransferase 89 U/L (14-59); Albumin Globulin Ratio 1.1; Albumin Level 3.5 g/dL (3.4-5.0); Alkaline Phosphatase 111 U/L (46-116); Aspartate Amino Transferase 46 U/L (15-37); Bilirubin Direct 0.1 mg/dL (0.0-0.2); Bilirubin Total 0.3 mg/dL (0.2-1.0); Globulin 3.2 g/dL; Total Protein 6.7 g/dL (6.4-8.2)
--- NOTE | 2024-08-15 07:39 | PC.NURSE ---
bedside report obtained from er nurse. no family present. pt awakens to sternal rub, respirations snorous. maintaining spo2 98% on ra. pt answers some questions, has to be aroused to stay awake. pt quickly returns to lethargic state. seizure pads initiated, nurse at bedside. cast noted to RLE, pt state she broke it in dec. circ check wnl. lac noted to L wrist. when asked, pt denies knowing what lead to admission to hospital. bed alarm on.
--- NOTE | 2024-08-15 08:00 | CM.NOTE ---
Rounds made with Dr. Clemente, pt continues to be only arousable with sternal rub. Pt at this time no responding verbally to questions. Dr. Clemente will come back this afternoon for further assessment.
--- NOTE | 2024-08-15 08:41 | P.HP_ITS ---
HPI H&P: HPI History of Present Illness Chief complaint: UNRESPONSIVE,ALCOHOL INTOX ,SI, BENZO OD Narrative: Patient found by in bathroom several pill bottles and beer, she normally drinks 6 cans of beer a day, he doubted that would change her mental status, counting goes in ER found to have a low level amount of Ativan in her bottle, drug screen positive for Ativan and methamphetamines alcohol and marijuana. Note from her 2 indicates she was trying to kill herself When I saw patient up in the medical surgical stepdown unit, patient completely unresponsive she would move her eyes to painful stimuli but that was it Opioid HPI Opioid Management Most Recent Pain and Opioid Data: Last Pain Assessment 08/15/24 07:58 Last ORT Total Score 9 08/15/24 07:32 08/15/24 Last ORT Risk Category High Risk 08/15/24 07:32 08/15/24 Ur Phencyclidine Scrn Negative (NEGATIVE) 08/14/24 22:30 07/24 07/16 Review of Systems ROS Status of ROS 10 or more systems reviewed and unremark able except as noted in history and below PFSH PFS Medical History (Updated 08/15/24 @ 08:52 by Michael Clemente MD) Suicidal ideation ?R45.851 - Suicidal ideations (ICD-10) Depression ?F32.A - Depression, unspecified (ICD-10) Anxiety ?F41.9 - Anxiety disorder, unspecified (ICD-10) Meds Home Medications and Allergies Home Medications ?Medication ?Instructions ?Recorded ?Confirmed ?Type cephalexin 250 mg capsule 250 mg PO DAILY PRN UTI PREVENTION 08/14/24 08/15/24 History clomipramine 25 mg capsule 25 mg PO .QHS 08/14/24 08/15/24 History dextroamphetamine-amphetamine ER 10 mg PO DAILY 08/14/24 08/15/24 History 10 mg 24hr capsule,extend release dextroamphetamine-amphetamine ER 30 mg PO DAILY 08/14/24 08/15/24 History 30 mg 24hr capsule,extend release fluticasone fur. 100 mcg-umeclid 1 inh inhalation DAILY 08/14/24 08/15/24 History 62.5 mcg-vilant 25 mcg inhalat.powder (Trelegy Ellipta) lorazepam 1 mg tablet 1 mg PO BID 08/14/24 08/15/24 History metoprolol succinate 25 mg 25 mg PO DAILY 08/14/24 08/15/24 History tablet,extended release 24 hr montelukast 10 mg tablet 10 mg PO .QHS 08/14/24 08/15/24 History tizanidine 4 mg tablet 4 mg PO Q6H PRN muscle spasticity 08/14/24 08/15/24 History albuterol sulfate 90 mcg/actuation 2 puff inhalation Q6H PRN 08/15/24 08/15/24 History aerosol inhaler shortness of breath or wheezing clomipramine 50 mg capsule 50 mg PO .QHS 08/15/24 08/15/24 History Allergies Allergy/AdvReac Type Severity Reaction Status Date / Time Unable to Assess Allergy Verified 08/14/24 22:55 Exam Constitutional Vital Signs, click to edit/add: Last Vital Signs Temp 97.5 F L 08/15/24 07:56 Pulse 83 08/15/24 08:10 Resp 28 H 08/15/24 08:10 BP 139/96 H 08/15/24 08:00 Pulse Ox 98 08/15/24 08:10 O2 Del Method Room Air 08/15/24 07:56 Documenting provider has reviewed patient's vital signs: yes Common normals: no apparent distress Chest Common normals: inspection of chest normal Respiratory Common normals: normal respiratory effort and no retractions Cardio Common normals: regular rate and regular rhythm GI Common normals: Normal to inspection, nondistended, normoactive bowel sounds present, soft to palpation and non-tender Neuro Other: Attentive, minimal response to painful stimuli Results Labs Labs: Short CBC 08/14/24 08/15/24 Range/Units 22:25 05:44 WBC 7.2 6.5 (4.0-11.0) 10^3/uL Hgb 15.2 14.4 (12.0-16.0) g/dL Hct 45.3 43.1 (36.0-48.0) % Plt Count 236 207 (150-450) 10^3/uL BMP 08/14/24 08/15/24 22:25 05:44 Sodium 141 139 Potassium 3.4 L 3.6 Chloride 103 106 Carbon Dioxide 26.5 25.6 BUN 5.0 L 5.0 L Creatinine 0.91 0.77 Glucose 99 94 Calcium 8.8 8.1 L Liver Function 08/14/24 08/15/24 Range/Units 22:25 05:44 Total Bilirubin 0.3 0.3 (0.2-1.0) mg/dL Direct Bilirubin 0.1 (0.0-0.2) mg/dL AST 52 H 46 H (15-37) U/L ALT 100 H 89 H (14-59) U/L Alkaline Phosphatase 125 H 111 (46-116) U/L Albumin 3.9 3.5 (3.4-5.0) g/dL Urine 08/14/24 Range/Units 22:30 Urine Color Lt. yellow (YELLOW) Urine Clarity Clear (CLEAR) Urine pH 6.0 (5.0-9.0) Ur Specific Tracy <=1.005 A (1.005-1.025) Urine Protein Negative (NEG/TRACE) mg/dL Urine Glucose (UA) Negative (NEGATIVE) mg/dL ABG ABG results: 08/14/24 22:51 VBG pH 7.321 L VBG pCO2 51.4 Assessment and Plan Assessment and Plan (1) Benzodiazepine overdose: (2) Suicide attempt: (3) Alcoholic intoxication: (4) Altered mental status: (5) Elevated liver function tests: (6) Metabolic acidosis: (7) Hypoxia: Plan Emergency room findings: Sinus tachycardia, uncontrolled hypertension, acute hypoxic O2 sat of 88%, altered mental status with patient unresponsive, metabolic acidosis on labs with elevated liver function test, drug screen positive for amphetamines benzodiazepines marijuana and alcohol, multi pharmacy drug overdose intentional Polypharmacy drug overdose alteration mental status, only responding to painful stimuli and only eye have movement with that-amphetamines, benzodiazepines, marijuana, alcohol-patient still obtunded, no indication for reversal of the Ativan, she did have hypoxia that is improved, liver function test also improved metabolic acidosis on admission Depression with suicide attempt-high risk for recurrence, will be referred to psychiatric facility when medically stable Elevated liver function test-further evaluation later today depending on exam and can follow as an outpatient improved Sinus tachycardia, IV fluids Asthma by history-stable will continue medications once awake Admission status: Patient has significant suicide attempts, metabolic acidosis, hypoxia, currently not hypoxic so no indication for reversing the Ativan, patient still medically unstable with significant altered mental status, also high risk for recurrence of suicide attempt, medically necessary treatment will span 2 midnights. Inpatient status Urinary Catheter Management Urinary Catheter Management Urethral: Cath placed during this visit: yes Urethral indwelling: No Insertion date: 08/14/24 Insertion time: 22:43
--- NOTE | 2024-08-15 10:35 | PC.NURSE ---
pt wakes up to name, able to stated she is in the hospital. stated i locked myself in the bathroom because my doesn't like me drinking pt stated i took 2 lorazepam and thats it pt more easily aroused, more conversational. offered water, pt refused.
--- NOTE | 2024-08-15 10:56 | SWNOTE1 ---
SW spoke to nurse in room. Pt's is not here at this time. Pt has been pink slipped. SW to stop back once pt's in room. SW to see if pt has been anywhere in past for suicide attempts.
[2024-08-15] MEDS: IPRATROPIUM/ALBUTEROL SULFATE 3 ML AMPUL.NEB IH ×3 (11:51→20:55)
[2024-08-15] MEDS: BUDESONIDE 0.5 MG/2 ML AMPULE NEB IH ×2 (11:52→20:55)
--- NOTE | 2024-08-15 13:25 | SWNOTE1 ---
SW stopped in to speak with pt, nurse comes in room as well. Student nurse in as well. Nurse was able to wake pt up. She is aware she is at hospital. She initially voiced she is uncertain of what happened yesterday. She initially admitted to locking herself in bathroom and having a drink and she stated she was putting up tape to paint. SW did ask her if she took any pills? She initially stated she took 2 Xanax. After clarification from nurse, pt admitted it was 2 Lorazepam (Ativan). Pt did voiced she was stressed about her 12 year old daughter who has Autism and Tourettes and was having issues at school and the school system was not assisting. Pt then voiced she has a friend that works somewhere that will be helping with this. SW then asked if she has ever been to an inpt facility in the past for drugs/alcohol/suicide attempts? Pt voiced she has been to the [facility] when she was 13 for suicidal thoughts/acts. SW did ask if she had any suicidal thoughts at this time? She stated no. SW did ask if she was attempting to harm herself last night? She initially stated no. SW and pt spoke about what happened last night. SW asked if she drinks everyday? SW also asked if she only took 2 pills? SW advised pt that the EMS and ED note has noted that she was unresponsive and depending on what she took, those 2 pills and alcohol likely would not have caused her to come in that way. After talking further pt admitted to taking the bottle of pills. She stated she was just trying to sleep. She stated she was exhausted from work and going to [place], etc. BERTO did explain to pt that she would be aware that taking that many pills could have the chance of killing her. She shook head in agreement. SW again asked if she was trying to harm herself? Pt did not answer. During conversation SW did advise pt that she is pink slipped and for her safety of her life she would be at risk to return home at this time. Pt did ask if she had to go somewhere, SW again let her know that at this time she was pink slipped. SW did offer to look at whatever facility pt would SW to look in to. At this time pt had no answer. Nurse did inform SW that she did also cut herself on wrists. SW also tried to provide encouragement to pt that she needs to take care of herself so she can be there for her family/daughter. SW to call pt's to update him. It was documented in ED note that pt had script for 60 pills (ativan) from 08/01/24 and only 2 were left. BERTO spoke to pt's on the phone. He voiced she has had Bipolar/Depression since he has known her. He voiced this is extreme for her. He stated yesterday was a bad day due to a few reasons, one of them being her counseling apt. He also stated in the past few weeks she has been pulling out her hair, cutting her nails back to the point where they bleed, and picking at her face. Pt's in agreement for her to go somewhere to get help. He is alright with BERTO checking [facility] first. BERTO called [facility]. The nurse stated to send the referral to fax and they will review and let SW KNOW. BERTO faxed pink slip, face sheet, ED note, H&P, labs, vitals, and all nursing notes pertaining to behaviors during stay.
--- NOTE | 2024-08-15 15:02 | SWNOTE1 ---
BERTO received a call from [address], she stated Dr. Rosas has accepted and she will go to 3 room 2 and the nurse will to call with report prior to her arrival. BERTO let Shana know that BERTO has to reach out to doctor and will let them know if she will be coming today. BERTO messaged Dr. Clemente to confirm if pt was medically stable for discharge or not.
--- NOTE | 2024-08-15 15:56 | SWNOTE1 ---
Pt not medically stable for discharge today. BERTO called [address] and updated them. She stated to call back tomorrow, they usually discharge around 11:00. She stated they do have discharges tomorrow. She let SW know they will give pt's bed away likely today, but again they do have discharges tomorrow and to call back in morning. BERTO let nurse and Dr. Clemente know.
--- NOTE | 2024-08-15 16:45 | PC.NURSE ---
mother at bedside, pt awake and conversing. refusing to eat, taking sips of sprite. pt stated i want to go home now again, explained to pt that she is pink slipped and plan is for dc to [address] pt asked how long does one spend at these FACILITIES and then pt stated she wants to refuse and go home. this rn continues to explain to pt definition of being pink slipped. pt stated then i am going to lose my job attempted to provide reassurance, pt closes eyes and turns head from this nurse. mother remains at bedside. rn in room, pt continues to be constantly observed.
[2024-08-16] VITALS (53 sets, daily range): BP systolic 109–154; BP diastolic 70–100; PULSE 75–119; TEMP 36.6–36.9; O2SAT 93–99
[2024-08-16] MEDS: LACTATED RINGER'S SOLUTION 1,000 ML 125 ML IV (02:56)
[2024-08-16] MEDS: IPRATROPIUM/ALBUTEROL SULFATE 3 ML AMPUL.NEB IH ×2 (04:39→11:00)
[2024-08-16 06:22] LABS: Basophils Percent Auto 0.3 % (0.2-2.0); Eosinophils Absolute Auto 0.2 10^3/uL (0.0-0.7); Eosinophils Percent Auto 2.5 % (0.9-7.0); Hematocrit 43.5 % (36.0-48.0); Hemoglobin 14.4 g/dL (12.0-16.0); Immature Granulocytes Abs Auto 0.03 10^3/uL (0.00-0.03); Immature Granulocytes Pct Auto 0.4 % (0.0-0.5); Lymphocytes Absolute Auto 2.3 10^3/uL (1.2-3.8); Lymphocytes Percent Auto 29.1 % (20.5-60.0); Mean Corpuscular HGB Conc 33.1 g/dL (29.9-35.2); Mean Corpuscular Hemoglobin 32.1 pg (26.7-34.0); Mean Corpuscular Volume 97.1 fL (81.0-99.0); Mean Platelet Volume 10.8 fL (9.5-13.5); Monocytes Absolute Auto 0.4 10^3/uL (0.3-0.8); Monocytes Percent Auto 4.9 % (1.7-12.0); Neutrophils Percent Auto 62.8 % (43.0-75.0); Platelet Count 188 10^3/uL (150-450); Red Blood Count 4.48 10^6/uL (4.20-5.40); Red Cell Distribution Width 11.9 % (11.0-15.0); White Blood Count 7.9 10^3/uL (4.0-11.0)
[2024-08-16 06:37] LABS: Anion Gap 12.9; BUN Creatinine Ratio 10.7; Calcium 8.7 mg/dL (8.5-10.1); Carbon Dioxide 26.5 mmol/L (21.0-32.0); Chloride 104 mmol/L (98-107); Estimated GFR (African America >60 (>=60 mL/min/1.73m^2); Estimated GFR (Non-African Ame >60 (>=60 mL/min/1.73m^2); Glucose 104 mg/dL (74-106); Magnesium 1.9 mg/dL (1.8-2.4); Potassium 3.4 mmol/L (3.5-5.1); Sodium 140 mmol/L (136-145)
[2024-08-16 06:40] LABS: Alanine Aminotransferase 68 U/L (14-59); Albumin Level 3.2 g/dL (3.4-5.0); Alkaline Phosphatase 105 U/L (46-116); Aspartate Amino Transferase 33 U/L (15-37); Bilirubin Direct 0.1 mg/dL (0.0-0.2); Bilirubin Total 0.4 mg/dL (0.2-1.0); Globulin 3.2 g/dL; Total Protein 6.4 g/dL (6.4-8.2)
--- NOTE | 2024-08-16 07:09 | P.DS_ITS ---
DS: Providers Provider Date of admission: 08/15/24 07:10 Primary care physician: GIOVANI HAGEN Consults: 08/15/24 01:22 Consult to Equipment Technician Routine Has provider been notified: No Reason for consult:: Drug Abuse Mental Health 08/15/24 08:41 Consult to Pharmacy Routine Consulting Provider: Reason for consultation: Please [place] me when Med Rec is Updated Has provider been notified: No DS: Diagnosis Discharge Diagnosis (1) Alcoholic intoxication: (2) Suicide attempt: (3) Benzodiazepine overdose: (4) Altered mental status: (5) Elevated liver function tests: (6) Metabolic acidosis: (7) Hypoxia: (8) Alcoholic cirrhosis of liver: Plan Emergency room findings: Sinus tachycardia, uncontrolled hypertension, acute hypoxic O2 sat of 88%, altered mental status with patient unresponsive, metabolic acidosis on labs with elevated liver function test, drug screen positive for amphetamines benzodiazepines marijuana and alcohol, multi pharmacy drug overdose intentional Polypharmacy drug overdose alteration mental status, only responding to painful stimuli and only eye have movement with that-amphetamines, benzodiazepines, marijuana, alcohol-patient still obtunded, no indication for reversal of the Ativan, she did have hypoxia that is improved, liver function test also improved metabolic acidosis on admission Depression with suicide attempt-high risk for recurrence, will be referred to psychiatric facility when medically stable Elevated liver function test-further evaluation later today depending on exam and can follow as an outpatient improved Sinus tachycardia, IV fluids Asthma by history-stable will continue medications once awake Admission status: Patient has significant suicide attempts, metabolic acidosis, hypoxia, currently not hypoxic so no indication for reversing the Ativan, patient still medically unstable with significant altered mental status, also high risk for recurrence of suicide attempt, medically necessary treatment will span 2 midnights. Inpatient status Urinary Catheter Management DS: Summary Hospital Course Hospital Course: Patient admitted to the hospital after polypharmacy use suicide attempts, she did have metabolic acidosis, acute hypoxia on admission consistent with the Ativan overdose, patient was obtunded throughout the entire day yesterday, started to wake up more in the evening on the day prior to discharge, this morning she is awake and answering questions appropriately and denies any complaints. At this point she is medically stable for discharge to invoke a pink slip to psychiatric facility at [facility] Time Spent with Patient Time attestation: Total time spent providing and/or coordinating discharge services: Exam Constitutional Vital Signs, click to edit/add: Last Vital Signs Temp 98 F 08/16/24 00:00 Pulse 84 08/16/24 06:00 Resp 18 08/16/24 04:39 BP 109/70 08/16/24 04:06 Pulse Ox 95 08/16/24 04:39 O2 Del Method Room Air 08/16/24 04:39 Documenting provider has reviewed patient's vital signs: yes Common normals: no apparent distress Chest Common normals: inspection of chest normal and palpation of chest normal Respiratory Common normals: normal respiratory effort and no retractions Cardio Common normals: regular rate and regular rhythm GI Common normals: Normal to inspection, nondistended, normoactive bowel sounds present DS: Data Data Completed and Pending Labs on day of discharge: Labs from last 24 hours 08/16/24 08/15/24 05:59 05:44 WBC 7.9 RBC 4.48 Hgb 14.4 Hct 43.5 MCV 97.1 MCH 32.1 MCHC 33.1 RDW 11.9 Plt Count 188 MPV 10.8 Neut % (Auto) 62.8 Lymph % (Auto) 29.1 Steele % (Auto) 4.9 Eos % (Auto) 2.5 Baso % (Auto) 0.3 Neut # (Auto) 5.0 Lymph # (Auto) 2.3 Steele # (Auto) 0.4 Eos # (Auto) 0.2 Baso # (Auto) 0.0 Abs Immat Gran (auto) 0.03 Imm/Tot Granulo (auto) 0.4 Sodium 140 Potassium 3.4 L Chloride 104 Carbon Dioxide 26.5 Anion Gap 12.9 BUN 8.0 Creatinine 0.75 Est GFR ( Amer) >60 Est GFR (Non-Af Amer) >60 BUN/Creatinine Ratio 10.7 Glucose 104 Calcium 8.7 Magnesium 1.9 Total Bilirubin 0.4 0.3 Direct Bilirubin 0.1 0.1 AST 33 46 H ALT 68 H 89 H Alkaline Phosphatase 105 111 Total Protein 6.4 6.7 Albumin 3.2 L 3.5 Globulin 3.2 3.2 Albumin/Globulin Ratio 1.0 1.1 Discharge Plan Discharge Disposition: [facility]
[2024-08-16] MEDS: METOPROLOL SUCCINATE 25 MG TAB.ER.24H PO (08:16)
--- NOTE | 2024-08-16 08:42 | CM.NOTE ---
Rounds made with Dr. Clemente. Dr. Clemente discussed discharge plan with [place] and that she would be discharged to [facility] today.
[2024-08-16] MEDS: ACETAMINOPHEN 325 MG TABLET 650 MG PO (09:11)
[2024-08-16] MEDS: BUDESONIDE 0.5 MG/2 ML AMPULE NEB IH (11:00)
--- NOTE | 2024-08-16 11:18 | SWNOTE1 ---
BERTO called in[address] They do not have a bed yet, but will call once it opens up as they do have discharges. Nurse advised that she spoke to our nurse earlier and they need pink slip with date on it. SW faxed pink slip with date.
--- NOTE | 2024-08-16 13:33 | SUR.HOLD ---
Report called to Latha ESCALERA at [address] [phone]. Patient to be picked up by [facility] at 1420 to transfer to [facility]. Scarlet ESCALERA taking over care until patient discharges.
--- NOTE | 2024-08-16 13:53 | SWNOTE1 ---
BERTO received call from Shana at [facility]) and they are ready for pt. She will be going to [address] Rosas is accepting phsyician. BERTO let nurse know. BERTO called and set up [facility] for 2:20pm. BERTO notified [facility], nurse, and pt's of time. BERTO filled out [facility] forms. BERTO faxed dc med rec and dc summary to [facility]. Pt's packet is out on med/surge floor. Pt is going to [facility].
--- NOTE | 2024-08-16 15:55 | PC.NURSE ---
LATE ENTRY [facility] arrived at 1431 to take pt to 1[facility] at [facility]. Pt refusing transfer d/t [facility] being out of network for her insurance. Multiple EMS services called to see if they could transport pt and they all declined. Administration was called. Nina Mims RN (DON) in to speak with pt. Pt spoke with BERTO Douglas via phone. Fallon ESCALERA ([facility] nursing director) in speaking with pt. Security at bedside. Pt's noted to be recording conversations on a cell phone. Pt came out to [facility] at approximately 1540 stating that she would go with transport. Pt states he told me () that you can't put a [place] on health so I guess I will go . [facility] left with pt at 1543.
== END 2024-08-16 15:43 | DRG 918 ==
LOC: ER 08-15 01:21 → MS 08-15 15:08
PROVIDERS: Registered Nurse; Admitting Provider Family Medicine; Emergency Provider Internal Medicine; PCP Family Medicine; Visit Provider Family Medicine
DX: T42.4X2A Poisoning by benzodiazepines, intentional self-harm, initial encounter (principal); E87.20 Acidosis, unspecified; S61.512A Laceration without foreign body of left wrist, initial encounter; F10.129 Alcohol abuse with intoxication, unspecified; R40.4 Transient alteration of awareness; R79.89 Other specified abnormal findings of blood chemistry; R09.02 Hypoxemia; Z87.891 Personal history of nicotine dependence; Z90.49 Acquired absence of other specified parts of digestive tract; Z90.710 Acquired absence of both cervix and uterus; Z87.442 Personal history of urinary calculi; Z87.440 Personal history of urinary (tract) infections; E78.00 Pure hypercholesterolemia, unspecified; F41.9 Anxiety disorder, unspecified; I10 Essential (primary) hypertension; T51.92XA Toxic effect of unspecified alcohol, intentional self-harm, initial encounter; F32.A Depression, unspecified; R00.0 Tachycardia, unspecified; J45.909 Unspecified asthma, uncomplicated; K70.30 Alcoholic cirrhosis of liver without ascites; X83.8XXA Intentional self-harm by other specified means, initial encounter; Y90.6 Blood alcohol level of 120-199 mg/100 ml
CPT/HCPCS: 36415; 51702; 70450; 71045; 80048; 80053; 80076; 80185; 80307; 80320; 80329; 81001; 82800; 82948; 83605; 83735; 84484; 85025; 93005; 94640; 94667; 94761; 96361; 96374; 99285; J1230

== ENCOUNTER 2024-09-06 08:11 | Emergency (ER) | payer OTHER, SELFPAY ==
[2024-09-06 08:23] VITALS: BP 112/88; PULSE 88; TEMP 36.8; O2SAT 99; BMI 32.9
--- OUTSIDE RECORDS SUMMARY | 2024-09-06 08:26 | XMS_ITS | CCD ---
Author Organization [facility] Care Team Providers Care Nurses Director Name Role Phone OZIEL MONTEIRO Referring Unavailable GIOVANI HAGEN Primary Care Unavailable MD Erwin Hylton Attending Provider MD Giovani Hagen Primary Care Provider [phone] Giovani Hagen Primary Care Provider Erwin Hylton [...] ., DR DHALIWAL Consulting Unavailable HIEU, DR MTAUTE Primary Care Unavailable MISHRA ., DR DHALIWAL [...] SIMON Attending Unavailabl e KARASIK ., DR SMION Admitting Unavailabl e KARASIK ., DR SIMON Consulting Unavailabl e HIEU, DR MATUTE Primary Care Unavailable KARASIK ., DR SIMON Attending Unavailabl e KARASIK ., DR SIMON Admitting Unavailabl e ZIEBER, DR LAURIE Kendrick Consulting Unavailable MD Concetta Immatt Attending Provider [phone] MD Giovani Hagen Primary Care Provider Gi[facility]ani [facility]agen MD [facility] Primary [facility] Provider MARY ANGEL Admitting Unavailable BLOOD, MARY Culver Attending Unavailable JACKSON MONTENEGRO Consulting Unavailable SONIYA PATEL Referring Unavailable HIEU, [facility] Primary Care Unavailable MAKENNA AMAYA Consulting Unavailable Hieu Giovani FRIEDMAN Primary Care Provider Giovani Hagen MD Unavailable Giovani Hagen MD Primary Care Provider Deena Lyn CNP Unavailable [phone] SOLO MORA Referring Unavailable HIEU, [facility] Unavailable ILIANA MERCADO Referring Unavailable HIEU, [facility] Care Unavailable Matty CASTANEDA, Darwin R Unavailable Madhuri MISHRA Attending Unavailable BHAVESH DEJESUS Attending Unavailable HieuGiovani mcclellan MD Primary Care Provider Dank Green MD Admit Provider Dank Green MD Attending Provider JAVY BOUDREAUX Attending Unavailable DARWIN STARR Referring Unavailable HIEU, RUGEN [facility] Primary Care Unavailable ILIANA MERCADO Referring Unavailable [facility], [facility] Primary Care Unavailable SOLO MORA Attending Unavailable KOCHAR ARSHNLAURIEL Referring Unavailable HIEU, RUGEN [facility] Primary Care Unavailable KOCHAR ARSHNEEL Referring Unavailable [facility], [facility] Primary Care Unavailable KOCHARCHRISHNLAURIEL Referring Unavailable [facility], [facility] Primary Care Unavailable ILIANA MERCADO Referring Unavailable HIEU, RUGEN [facility] Primary Care Unavailable JAVY BOUDREAUX Referring Unavailable HIEU, RUGEN [facility] Primary Care Unavailable ILIANA MERCADO Referring Unavailable HIEU, RUGEN [facility] Primary Care Unavailable HIEU, RUGEN [facility] Primary Care Unavailable SOLO MORA Attending Unavailable HIEU, RUGEN [facility] Primary Care Unavailable KOCHARCHRISHNLAURIEL Referring Unavailable HIEU, RUGEN [facility] Primary Care Unavailable LYDIA KELLEY Attending Unavailab le [facility]IEU, [facility] Unavailable ILIANA MERCADO Attending Unavailable HIEU, RUGEN [facility] Primary Care Unavailable OBED BHATT Attending Unavailable ILIANA MERCADO Referring Unavailable HIEU, RUGEN [facility] Primary Care Unavailable Dank Green Admitting Unavailab Rahul Ugarte Attending Unavailable Hieu, Rugen M Primary Care Unavailable DOLMILTON SOTOMAYOR Attending Unavailable DOLBRAN, MILTON Roth Attending Unavailable MILTON FRAIRE Attending Unavailable ARUN HERNADEZ Attending Unavailable HIEU, RUGEN M Referring Unavailable DOLCE, MILTON Roth Attending Unavailable ANITRA SANCHEZ Attending Unavailable HIEU, RUGEN M Referring Unavailable ZHEN BURGESS Attending Unavailable HIEU, RUGEN M Referring Unavailable ZHEN BURGESS Attending Unavailable HIEU, RUGEN M Referring Unavailable HIEU, RUGEN M Attending Unavailable HIEU RUGEN M Attending Unavailable HIEU, RUGEN M Attending Unavailable MILTON FRAIRE Referring Unavailable DOLBRAN, MILTON Roth Attending Unavailable JUNO, MILTON Roth Attending Unavailable DARWIN STARR Attending Unavailable PRATEEK PEDRAZA Attending Unavailable HIEU, RUGBETY Bob Attending Unavailable AYLEEN KRISHNAMURTHY Attending Unavailable DOLBRAN, MILTON Roth Referring Unavailable DOLBRAN, MILTON Roth Attending Unavailable DEENA LYN Attending Unavailable DARWIN STARR Attending Unavailable ARUN HERNADEZ Attending Unavailable HIEU, RUGEN M Referring Unavailable ARUN HERNADEZ Attending Unavailable HIEU, RUGEN M Referring Unavailable KELBLEYANITRA Attending Unavailable HIEU, RUGEN M Referring Unavailable ZHEN BURGESS Attending Unavailable HIEU, RUGEN M Referring Unavailable ARUN HERNADEZ Attending Unavailable HIEU, RUGEN M Referring Unavailable MATTYDARWIN Attending Unavailable HIEU, RUGEN M Attending Unavailable HIEU, RUGEN M Attending Unavailable HIEU, RUGEN M Attending Unavailable CADE WILCOX Attending Unavailable HIEU, RUGEN M Attending Unavailable PRATEEK PEDRAZA Attending Unavailable HIEU, RUGEN M Referring Unavailable MATTYDARWIN Drew Attending Unavailable JOSEPHINE GILMAN Attending Unavailable HIEU, RUGEN M Attending Unavailable HIEU, RUGEN M Attending Unavailable HIEU, RUGEN M Attending Unavailable KELBLEANITRA Christiansen Attending Unavailable HIEU, RUGEN M Referring Unavailable HIEU, RUGEN M Attending Unavailable Allergies Allergy Classification Reported Allergen(s) Allergy Type Date of Onset Reaction(s) Facility Iodine (and Iodine containting drugs) (2 sources) Iodine Drug Allergy 04-11-20 19 Swelling, Itching [facility] Iohexol (2 sources) Iohexol Drug Allergy 04-12-20 19 Itching [facility] (20 sources) Iodine; Translations: [IODINE] Drug Allergy 04-11-20 19 Swelling, Itching [facility] (20 sources) Iohexol; Translations: [IOHEXOL] Drug Allergy 04-12-20 19 Itching [facility] (1 source) Cat Propensity to adverse reactions anaphylaxis [employer] Other (7 sources) tree nut, unspecified; Translations: [TREE NUTS] Propensity to adverse reactions 07-11-19 25 anaphylaxis [employer] Other (1 source) peanut allergenic extract Drug Allergy [facility] Repository (1 source) Cat/Feline Product Derivatives Drug allergy (disorder) 01-08-20 13 [facility] Repository (20 sources) Cat Hair Extract Allergy to substance 12-01-19 Anaphylaxis [facility] (20 sources) Iodinated Contrast Media; Translations: [IODINATED CONTRAST MEDIA] Drug Allergy 04-12-20 Hives, Anaphylaxis, Itching [facility] (20 sources) Prednisone & Diphenhydramine Drug Allergy 10-03-19 [facility] (7 sources) Cat Dander; Translations: [CAT DANDER] Drug Allergy 05-03-19 Anaphylaxis [facility] (1 source) No Known Medication Allergies; Translations: [No Known Medication Allergies] Propensity to adverse reactions (disorder) [facility] Repository (1 source) tree nut, unspecified Drug allergy (disorder) 05-03-19 [facility] Repository Medications Current Medications Medication [...] every six hours for pain HYDROcodone-acetami nophen ([place]) 5-325 MG tablet Indications: Cervical radiculopathy due to degenerative joint disease of spine Take 1 tablet by mouth every 6 (six) hours if needed for severe pain for up to 5 days 20 tablet 05/09/2024 05/14/2024 Active Start: 04-16-2024 End: 04-21-2024 take 1 tablet by mouth every six hours for pain HYDROcodone-acetaminophen ([place]) 5-325 MG tablet Indications: Sprain of anterior talofibular ligament of right ankle, subsequent encounter Take 1 tablet by mouth every 6 (six) hours if needed for severe pain for up to 5 days 20 tablet 04/16/2024 04/21/2024 [id number] 200 actuat albuterol 0.09 mg/actuat metered dose inhaler (20 sources) beta2-Adrenergic Agonist Start: 08-18-2024 take 2 puff(s) by inhalation every four hours as needed for wheezing Albuterol Sulfate 90 mcg/actuation HFA aerosol inhaler Active 2 PUFF INHALATION Every 4 hours as needed for shortness of breath or wheezing August 18, 2024 12:00am [employer] puff as needed Inhalation every 4 hrs; Note: Source Status: Taking; Provider: Concetta Hood ( ) Start: 08-06-2024 take 2 puff(s) by in halation every six hours for wheezing albuterol HFA 90 mcg/act inhaler Indications: Mild intermittent asthma without complication (CMS/HCC) Inhale 2 puffs every 6 (six) hours if needed for wheezing 18 g 3 08/06/2024 Active Start: 04-16-2024 End: 04-16-2025 albuterol (2.5 MG/3ML) 0.083 % nebulizer solution Indications: Moderate persistent asthmatic bronchitis [...] (20 sources) Central Nervous System Stimulant Start: 08-16-2024 take 1 capsule by mouth once daily in the morning Dextroamphetamine-Amphetamine 10 mg capsule,extended release 24hr Active 10 MG PO Every morning August 16, 2024 12:00am Start: 07-16-2024 End: 2024 take 1 capsule by mouth every twenty-four hours in the morning amphetamine-dextroamphetamine XR (Addera ll XR) 10 MG 24 hr capsule Indications: Attention deficit hyperactivity disorder (ADHD), predominantly inattentive type (CMS/HCC) , Bipolar disorder, in partial remission, most recent episode manic (CMS/HCC) , 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CMS/HCC) Take 1 capsule (10 mg) by mouth in the morning. Do not crush or chew. Take with the 30mg tablet. 30 capsule 08/29/2024 2024 Active Start: 07-16-2024 End: 08-15-2024 take 1 capsule by mouth once daily amphetamine-dextroamphetamine XR (Addera ll XR) 30 MG 24 hr capsule Indications: Attention deficit hyperactivity disorder (ADHD), predominantly inattentive type (CMS/HCC) Take 1 capsule (30 mg) by mouth Daily Do not crush or chew. Take with the 10mg daily 30 capsule 07/16/2024 Active Start: 06-06-2024 End: 07-06-2024 take 1 capsule by mouth every twenty-four hours in the morning amphetamine-dextroamphetamine XR (Addera ll XR) 10 MG 24 hr capsule Indications: [...] capsules by mouth at bedtime Bis Subcit Uqt-Mamun-Iiikrmdr (PYLERA) 140-125-125 mg per capsule Take 3 [...] oral capsule (20 sources) Atypical Antipsychotic Start: 08-30-2024 take 1 capsule by mouth once daily Cariprazine HCl (Vraylar) 4.5 MG capsule Indications: Bipolar disorder, in partial remission, most recent episode manic (CMS/HCC) Take 1 capsule by mouth Daily 100 capsule 3 08/30/2024 Active Start: 08-16-2024 take 1 capsule by mo [facility] at bedtime Cariprazine (Vraylar) 4.5 mg capsule Active 4.5 MG PO Bedtime August 16, 2024 12:00am Start: 12-28-2023 End: 12-19-2023 take 1 mg by mouth once daily Vraylar 4.5 mg oral caps ule mg cap(s), Oral, Daily Start Date: 12/28/23 [...] 05/01/19 Status: Ordered take 1 capsule by [facility] once daily cariprazine (VRAYLAR) 3 mg cap [...] 10 days. 20 tablet 04/18/2024 04/28/2024 Active clobetasol propionate 0.5 mg/ml topical cream (20 sources) Corticosteroid Start: End: clobetasol (Temovate) 0.05 % cream Indications: Dyspareunia in female , Urethral pain Apply 1 application topically Daily Apply pea-size amount daily for 30 days and then every other day for another 30 days. 60 g 1 01/22/2024 03/22/2024 Active clomiPRAMINE hydrochloride 50 mg oral capsule (20 sources) Tricyclic Antidepressant Start: End: take 1 capsule by mouth at bedtime clomiPRAMINE (Anafranil) 50 MG capsule Indications: Anxiety , 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CMS/HCC) TAKE 1 CAPSULE BY MOUTH AT BEDTIME 30 capsule 09/02/2024 Active Start: 07-04-2024 End: 07-04-2025 take 1 capsule by mouth at bedtime Clomipramine 25 mg capsule Discontinued 25 MG PO Bedtime August 16, 2024 12:00am August 19, 2024 11:35am clonazePAM 0.5 mg oral tablet (4 sources) [...] in the morning. 45 tablet 2 06/06/2024 Active Start: 11-09-2023 End: 06-06-2024 take 1 tablet by mouth once daily in the morning escitalopram (Lexapro) 20 MG tablet Indications: Bipolar disorder, in partial remission, most recent episode manic (CMS/HCC) TAKE 1 TABLET BY MOUTH EVERY DAY IN THE MORNING 30 tablet 2 05/13/2024 06/06/2024 Discontinued (Reorder) 30 actuat fluticasone furoate 0.1 mg/actuat / umeclidinium 0.0625 mg/actuat / vilanterol 0.025 mg/actuat dry powder inhaler (20 sources) Anticholinergic, Corticosteroid, beta2-Adrenergic Agonist Start: 08-06-2024 take 1 puff(s) by inhalation once daily Ssmgmzqzrpy-Imxdvlcsx-Hxzxui (Trelegy Ellipta) 100-62.5-25 MCG/ACT aerosol powder Indications: Moderate persistent asthmatic bronchitis with acute exacerbation (CMS/HCC) INHALE 1 PUFF DAILY 60 each 2 09/03/2024 Active Start: 04-16-2024 End: 06-25-2024 take 1 puff(s) by inhalation once daily Gslfktkolmw-Ylohmwzbz-Vsbgty 100-62.5-25 MCG/ACT aerosol powder Indications: Moderate persistent asthmatic bronchitis with acute exacerbation (CMS/HCC) Inhale 1 puff Daily 1 each 04/16/2024 06/25/2024 Discontinued Start: 05-24-2022 take 1 puff(s) by inhalation once daily Nhdzhjchadm-Cadvtwzvs-Ncfrpg 100-62.5-25 MCG/ACT aerosol powder INHALE 1 PUFF INTO THE LUNGS EVERY DAY FOR 30 DAYS 05/24/2022 Active Start: 05-24-2022 End: 11-02-2022 TRELEGY ELLIPTA 100-62.5-25 mcg inhalation powder 05/24/2022 11/02/2022 Discontinued fluticasone/umeclidin/vilant er (TRELEGY ELLIPTA INHALATION) (8 sources) fluticasone/umec lidin/vilanter (TRELEGY ELLIPTA INHALATION) Inhale as instructed. Active hydrocortisone acetate 25 mg rectal suppository (14 sources) Corticosteroid S t a r t : 0 3 - 1 7 - 2 0 2 5 hydrocortisone (Anusol-HC) 2 5 MG suppository UNWRAP AND INSERT 1 SUPPOSITORY RECTALLY EVERY 12 HOURS NEEDED FOR HEMORRHOIDS 07/08/2024 Active hydrOXYzine pamoate 25 mg or al capsule (12 sources) Antihistamine S t a r t : 0 3 - 1 3 - 2 0 2 5 E n d : 0 3 - 2 3 - 2 0 2 5 take 1 capsule by mouth every six hours hydrOXYzine pamoate (Vistaril) 25 MG capsule Indications: Anxiety , PTSD (post-traumatic stress disorder) (CMS/[facility]) Take 1 capsule (25 mg) by mouth every 6 (six) hours if needed for itching for up to 10 days 30 capsule 07/04/2024 Active ibuprofen 800 mg oral tablet (2 sources) Nonsteroidal Anti-inflammat ory Drug S t a r t : 0 2 - 1 9 - 2 0 1 9 take 800 mg by mouth once daily as needed for pain ibuprofen 800 mg, Oral, Daily, PRN as needed for pain, Refills(s) 0 Start Date: 06/12/18 Status: Ordered lidocaine 50 mg/ml rectal cr eam (15 sources) Antiarrhythmic , Amide Local Anesthetic S t a r t : 0 3 - 1 7 - 2 0 2 5 AneCream5 5 % cream APPLY 1 APPLICATION TOPICALLY FOUR TIMES DAILY NEEDED FOR PAIN 07/08/2024 Active Start: 05-03-2019 take 15 mL by mouth every three hours as needed for pain Lidocaine Viscous 2 % gargle 15 ml as needed for pain Mouth/Throat every 3 hrs Apr, Not-Taking 24 hr metoprolol succinate 25 mg extended release oral tablet (11 sources) beta-Adrenergic Taylor Start: 08-13-2024 End: 11-11-2024 take 1 tablet by mouth once daily metoprolol succinate XL (Toprol-XL) 25 MG 24 hr tablet Take 25 mg by mouth Daily 08/13/2024 Active montelukast 10 mg oral tablet (20 sources) Leukotriene Receptor Antagonist Start: 04-01-2024 End: 04-01-2025 take 1 tablet by mouth at bedtime montelukast (Singulair) 10 MG tablet Indications: Mild intermittent asthma without complication (CMS/HCC) Take 1 tablet (10 mg) by mouth at bedtime 30 tablet 11 04/01/2024 04/01/2025 Active phentermine hydrochloride 37.5 mg oral tablet (20 sources) Sympathomimetic Amine Anorectic Start: 07-16-2024 End: 2024 take 1 tablet by mouth in the morning phentermine (Adipex-P) 37.5 MG tablet Indications: Obesity (BMI 35.0-39.9 without comorbidity) TAKE 1 TABLET (37.5 MG) BY MOUTH IN THE MORNING 30 tablet 08/29/2024 2024 Active Start: 12-04-2023 End: 05-30-2024 take 1 tablet by mouth before mealtime phentermine (Adipex-P) 37.5 MG tablet Indications: Obesity (BMI 35.0-39.9 without comorbidity) Take 1 tablet (37.5 mg) by mouth in the morning. Take before meals. 30 tablet 04/30/2024 Active predniSONE 20 mg oral tablet (20 sources) Start: 08-14-2024 End: 08-24-2024 take 1 tablet by mouth once daily predniSONE (Deltasone) 20 MG tablet Indications: Peroneal tendon tear, right, initial encounter Take 1 tablet (20 mg) by mouth Daily for 10 days 10 tablet 08/14/2024 08/24/2024 Active Start: 04-16-2024 End: 05-02-2024 take 4 tablets [...] 4 days. 40 tablet 12/26/2023 01/22/2024 Discontinued 0.25 mg, 0.5 mg dose 1.5 ml semaglutide 1.34 mg/ml pen injector (20 sources) Start: 06-07-2024 semaglutide (Ozempic) injection 0.25 mg tiZANidine 4 mg oral tablet (15 sources) Central alpha-2 Adrenergic Agonist Start: 07-24-2024 End: 08-03-2024 take 1 tablet by mouth every six hours for muscle spasms tiZANidine (Zanaflex) 4 MG tablet Indications: Peroneal tendon tear, right, initial encounter Take 1 tablet (4 mg) by mouth every 6 (six) hours if needed for muscle spasms for up to 10 days 30 tablet 07/24/2024 Active traMADol hydrochloride 50 mg oral tablet [...] tablet (1 source) Penicillin-class Antibacterial Start: 05-03-19 20 take 1 tablet by mouth every twelve hours Amoxicillin 875 MG 1 tablet Orally Twice a day for 7 days Apr, Not-Taking baclofen 10 mg oral tablet (20 sources) gamma-Aminobutyric Acid-ergic Agonist Start: 12-26-19 End: 05-09-19 25 take 1 tablet by [...] chew. 20 capsule 04/22/2024 05/09/2024 Discontinued (Other) cephalexin 250 mg oral capsule (20 sources) Cephalosporin Antibacterial Start: 08-17-2024 End: 09-02-2024 cephalexin (Keflex) 250 MG capsule Take 250 mg by mouth 08/17/2024 09/02/2024 Discontinued (Other) Start: 03-13-2024 End: 08-01-2024 cephalexin (Keflex) 250 MG c apsule TAKE 1 CAPSULE BY MOUTH AFTER INTERCOURSE TO PREVENT UTI 03/13/2024 08/01/2024 Discontinued (Other) Start: 12-28-2023 Keflex 250 mg Cap See Instructions, 1 cap po after intercourse to prevent UTI, # 20 cap(s), Refills(s) 2, Pharmacy: [facility]/pharmacy #[id number], 158, cm, 12/28/23 15:24:00 EDT, Height/Length [...] # 50 cap(s), Refills(s) 0, Pharmacy: [facility]/pharmacy #[id number], 158, cm, 06/29/22 8:19:00 EST, Height/Length Dosing, 84.8, kg, 06/29/22 8:19:00 EST, Weigh... Start Date: 06/29/22 Status: Ordered cholecalciferol 0.125 mg oral capsule (8 sources) Vitamin D Start: 02-06-2023 End: 01-22-2024 take 1 capsule by mouth once in the morning cholecalciferol (Vitamin D-3) 125 MCG (5000 UT) capsule Indications: Vitamin D deficiency Take 1 capsule (125 mcg) by mouth in the morning. 90 capsule 3 02/06/2023 01/22/2024 Discontinued citalopram 10 mg oral tablet (8 sources) Serotonin Reuptake Inhibitor Start: 08-19-2024 End: 09-02-2024 take 5 tablets by mouth once daily citalopram (CeleXA) 10 MG tablet Take 50 mg by mouth Daily 08/19/2024 09/02/2024 Discontinued (Therapy completed) Start: 08-19-2024 take 1 tablet by vanna th once daily citalopram (CeleXA) 10 MG tablet Take 10 mg by mouth Daily 08/19/2024 Active diclofenac sodium 75 mg delayed release oral [...] Discontinued EpiPen prn Activ e estrogens, conjugated (half-way) 0.625 mg/ml vaginal cream (20 sources) Estrogen [...] Daily 30 tablet 02/06/2024 05/09/2024 Discontinued (Other) lisdexamfetamine dimesylate 10 mg oral capsule (19 sources) Central Nervous System Stimulant End: 12-19-2023 take 1 capsule by mouth once daily lisdexamfetamine (VYVANSE) 10 mg capsule Take 10 mg by mouth once daily. 12/19/2023 Discontinued (Other) take 1 capsule by [facility] every twenty-four hours Vyvanse 50 MG 1 capsule in the morning Orally Once a day Active Comment on above: Take 10 mg by mouth once daily. LORazepam 1 mg oral tablet (20 sources) Benzodiazepine Start: End: take 1 tablet by mouth in the morning LORazepam (Ativan) 1 MG tablet Indications: Anxiety , PTSD (post-traumatic stress disorder) (CMS/HCC) Take 1 tablet (1 mg) by mouth in the morning and in the evening 60 tablet 08/01/2024 09/02/2024 Discontinued (Other) Start: 07-04-2024 End: 09-02-2024 take 1 tablet by mouth in the morning LORazepam (Ativan) 0.5 MG tablet Indications: Anxiety , PTSD (post-traumatic stress disorder) (CMS/HCC) Take 1 tablet (0.5 mg) by mouth in the morning and in the evening 30 tablet 08/01/2024 09/02/2024 Discontinued (Other) meloxicam 15 mg oral tablet (20 sources) Nonsteroidal Anti-inflammatory Drug Start: 02-21-2024 End: 05-09-2024 take 1 tablet by mouth once daily meloxicam (Mobic) 15 MG tablet Indications: Acute right ankle pain Take 1 tablet (15 mg) by mouth Daily 30 tablet 2 02/21/2024 05/09/2024 Discontinued (Other) 50/50 release 24 hr methylphenidate hydrochloride 20 mg extended release oral capsule (16 sources) Central Nervous System Stimulant Start: 03-28-2022 End: 11-02-2022 take 1 capsule by mouth once daily in the morning methylphenidate LA (RITALIN LA) 20 mg 24 hr capsule TAKE 1 CAPSULE BY MOUTH EVERY DAY IN THE MORNING FOR 30 DAYS 03/28/2022 11/02/2022 Discontinued Comment on above: TAKE 1 CAPSULE BY [facility] EVERY DAY IN THE MORNING FOR 30 DAYS Naproxen (1 source) Nonsteroidal Anti-inflammatory Drug Naproxen Not-Taking ondansetron 4 mg disintegrating oral tablet (20 sources) Serotonin-3 Receptor Antagonist Start: 05-27-2024 End: 06-26-2024 take 1 tablet by mouth every six [...] twice daily before meals for 14 days. promethazine hydrochloride 12.5 mg oral tablet (17 sources) Phenothiazine Start: 04-11-20 End: 07-11-19 take 1 tablet by mouth every six [...] tablet (2 mg) by mouth once daily. Semaglutide,0.25 or 0.5MG/DOS, (Ozempic, 0.25 or 0.5 MG/DOSE,) 2 MG/3ML solution pen-injector (7 sources) Start: 08-23-2024 End: 09-02-2024 Semaglutide,0.25 or 0.5MG/DOS, (Ozempic, 0.25 or 0.5 MG/DOSE,) 2 MG/3ML solution pen-injector Indications: Prediabetes , Obesity (BMI 30.0-34.9) , Overweight Inject 0.5 mg under the skin 1 (one) time per week 3 mL 3 08/23/2024 09/02/2024 Discontinued (Other) Start: 08-23-2024 Semaglutide,0. 25 or 0.5MG/DOS, (Ozempic, 0.25 or 0.5 MG/DOSE,) 2 MG/3ML solution pen-injector Indications: Prediabetes , Obesity (BMI 30.0-34.9) , Overweight Inject 0.5 mg under the skin 1 (one) time per week 3 mL 3 08/23/2024 Active Start: 08-13-2024 Semaglutide,0. 25 or 0.5MG/DOS, (Ozempic, 0.25 or 0.5 MG/DOSE,) 2 MG/3ML solution pen-injector Indications: Prediabetes , Obesity (BMI 30.0-34.9) , Overweight Inject 0.5 mg under the skin 1 (one) time per week 3 mL 3 08/13/2024 Active Semaglutide-Weight Management (Wegovy) 0.25 MG/0.5ML solution auto-injector [...] Date Documented Da te Episodic/Chronic Abdominal pain (13 sources) Right sided abdominal pain; Translations: [Unspecified abdominal pain] Onset: 2 Episodic Acute bronchitis (2 sources) Acute bronchitis; Translations: [Acute bronchitis, unspecified] 04-18-2024 Episodic Alcohol-related disorders (4 sources) Alcohol withdrawal delirium; Translations: [Alcohol withdrawal delirium] Onset: 5 09-02-2024 Chronic Alcohol-related disorders (4 sources) Alcohol use, unspecified with alcohol-induced psychotic disorder, unspecified; Translations: [Unspecified alcohol-induced mental disorders] Onset: 5 09-02-2024 Episodic Anxiety disorders (20 sources) Anxiety disorder, unspecified; Translations: [Anxiety] Onset: 5 09-23-2022 Chronic Asthma (20 sources) Exercise induced bronchospasm; Translations: [Exercise induced bronchospasm] Onset: 3 09-23-2022 Chronic Attention-deficit, conduct, and disruptive behavior disorders (20 sources) Attention deficit hyperactivity disorder, predominantly inattentive type; Translations: [Attention-deficit hyperactivity disorder, predominantly inattentive type] Onset: 3 09-23-2022 Chronic Cardiac dysrhythmias (9 sources) Palpitations; Translations: [Palpitations] Onset: 5 08-26-2024 Episodic Coronary atherosclerosis and other heart disease (20 sources) Atherosclerosis of coronary artery without angina pectoris; Translations: [Atherosclerotic heart disease of [place] coronary artery without angina pectoris] Onset: 2 [...] disease without esophagitis] Onset: 0 12-12-2022 Chronic Essential hypertension (4 sources) Hypertensive disorder; Translations: [Essential (primary) hypertension] Onset: 5 09-02-2024 Chronic Fluid and electrolyte disorders (2 sources) [...] Onset: 2 Episodic Impulse control disorders, NEC (20 sources) Trichotillomania; 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] Onset: 5 07-04-2024 [...] Onset: 0 12-12-2022 Chronic Other acquired deformities (4 sources) Contracture of joint of right ankle; [...] dyspareunia] 03-20-2024 Chronic Other female genital disorders (4 sources) Dyspareunia; Translations: [Other specified dyspareunia] 07-10-2024 Chronic Other female genital disorders (1 source) Other specified dyspareunia; Translations: [Other specified dyspareunia] Onset: 5 Chronic Other female genital disorders (1 source) H/O: dyspareunia; Translations: [Personal history of other diseases of the female genital tract] 04-30-2024 Episodic Other gastrointestinal disorders (20 sources) Irritable bowel syndrome characterized by constipation; Translations: [Irritable bowel syndrome with constipation] Onset: 3 11-02-2022 Chronic Other gastrointestinal disorders (1 source) Chronic idiopathic constipation; Translations: [Chronic idiopathic constipation] 07-10-2024 Chronic Other gastrointestinal disorders (1 source) Chronic idiopathic constipation; Translations: [Chronic idiopathic constipation] Onset: 5 Chronic Other gastrointestinal disorders (1 source) History [...] diseases of liver Chronic Other liver diseases (5 sources) Abnormal levels of other serum enzymes; [...] region] 04-03-2024 Episodic Other non-traumatic joint disorders (11 sources) Instability of joint of right ankle; [...] ankle, initial encounter] Onset: 4 04-01-2024 Episodic Superficial injury; contusion (2 sources) Contusion of right ankle; Translations: [Contusion of right ankle, initial encounter] 08-14-2024 Episodic Syncope (5 sources) Syncope and collapse; Translations: [Syncope and [...] Translations: [Cough] Onset: 04-18-2023 04-18-2023 Episodic Other lower respiratory disease (20 sources) Snoring; Translations: [Snoring] Onset: 04-16-2024 04-16-2024 Episodic Other nervous system disorders (20 [...] Test Name Value Interpretation Reference Range Facility Cholesterol [Mass/volume] in Serum or PlasmaOrdered By: Dank Green on 08-17-2024 Cholesterol [Mass/Vol] Cholesterol [Mass/volume] in Serum or Plasma 140-200 [facility] Comment on above: Chol less than 200 m g/dl low riskChol 201-239 mg/dl borderline riskChol 240 mg/dl and greater high risk Cholesterol in HDL [Mass/vol ume] in Serum or PlasmaOrdered By: Dank Green on 08-17-2024 Cholesterol in HDL [Mass/Vol] Serum or plasma high density lipoprotein (HDL) cholesterol measurement [facility] Comment on above: HDL CHOL ATP-III CLA SSIFICATION Cardiovascular RiskHDL > or equal to 60 mg/dL LOWHDL < 40 mg/dL HIGH Cholesterol in LDL Calc [Mas s/Vol]Ordered By: Dank Green on 08-17-2024 Cholesterol in LDL [Mass/Vol] Cholesterol in LDL [Mass/volume] in Serum or Plasma by calculation High 0-100 [facility] Comment on above: LDL ATP III CLASSIFI CATIONLDL less than 100 mg/dL OptimalLDL 100-129 mg/dL Near or above optimalLDL 130-159 mg/dL Borderline highLDL 160-189 mg/dL HighLDL greater than 189 mg/dL Very high Cholesterol in VLDL Calc [Ma ss/Vol]Ordered By: Dank Green on 08-17-2024 Cholesterol in VLDL [Mass/Vol] Cholesterol in VLDL [Mass/volume] in Serum or Plasma by calculation [facility] Lipid Panelon 08-17-2024 Cholesterol [Mass/Vol] 183 mg/dL Normal 140-200 [facility] Comment on above: Result Comment: Chol less than 200 mg/dl low risk Chol 201-239 mg/dl borderline risk Chol 240 mg/dl and greater high risk Performed By: #### L IPID, TSH3 wRFLX, [id number] #### [facility] [address] Cholesterol in HDL [Mass/Vol] 59 mg/dL Normal 23-92 [facility] Comment on above: Result Comment: HDL CHOL ATP-III CLASSIFICATION Cardiovascular Risk HDL > or equal to 60 mg/dL LOW HDL < 40 mg/dL HIGH Performed By: #### L IPID, TSH3 wRFLX, [id number] #### [facility] [address] Cholesterol.total/Chol esterol in HDL [Mass ratio] 3.1 {ratio} Normal <5.0 [facility] Comment on above: Performed By: #### L IPID, TSH3 wRFLX, [id number] #### [facility] [address] LDL Cholesterol,Calculated 101 mg/dL High 0-100 [facility] Comment on above: Result Comment: LDL ATP III CLASSIFICATION LDL less than 100 mg/dL Optimal LDL 100-129 mg/dL Near or above optimal LDL 130-159 mg/dL Borderline high LDL 160-189 mg/dL High LDL greater than 189 mg/dL Very high Performed By: #### L IPID, TSH3 wRFLX, [id number] #### [facility] [address] Triglyceride w/Reflex 113 mg/dL Normal 0-149 [facility] Comment on above: Result Comment: TRIG ATP III CLASSIFICATION TRIG less than 150 mg/dL Normal TRIG 150-199 mg/dL Borderline high TRIG 200-500 mg/dL High TRIG greater than 500 mg/dL Very high Standard traceable to the Center for Disease Conrtrol and Prevention (CDC) test method. Performed By: #### L IPID, TSH3 wRFLX, [id number] #### [facility] [address] [place] [id number] [facility] VLDL CHOLESTEROL 22 mg/dL Normal [facility] Comment on above: Performed By: #### L IPID, TSH3 wRFLX, [id number] #### [facility] [address] [place] [id number] [facility] Serum or plasma total choles terol/high density lipoprotein (HDL) cholesterol mass ratOrdered By: Dank Green on 08-17-2024 Cholesterol.total/Chol esterol in HDL [Mass ratio] Serum or plasma total cholesterol/high density lipoprotein (HDL) cholesterol mass rat <5.0 [facility] Thyroid Stim Hormone w/Rflxo n 08-17-2024 Thyroid Stim Hormone w/Rflx 3.84 u[iU]/mL Normal 0.45-5.33 [facility] Comment on above: Performed By: #### L IPID, TSH3 wRFLX, [id number] #### [facility] [address] [place] [id number] [facility] Thyrotropin [Units/volume] i n Serum or PlasmaOrdered By: Dank Green on 08-17-2024 TSH Qn Thyrotropin [Units/volume] in Serum or Plasma 0.45-5.33 [facility] Triglyceride [Mass/volume] i n Serum or PlasmaOrdered By: Dank Green on 08-17-2024 Triglyceride [Mass/Vol] Triglyceride [Mass/volume] in Serum or Plasma 0-149 [facility] Comment on above: TRIG ATP III CLASSIF ICATIONTRIG less than 150 mg/dL NormalTRIG 150-199 mg/dL Borderline highTRIG 200-500 mg/dL High TRIG greater than 500 mg/dL Very highStandard traceable to the Center for Disease Conrtrol and Prevention (CDC) test method. Vitamin D 25 Hydroxy Totalon 08-17-2024 Vitamin D 25 Hydroxy Total 13.6 ng/mL Low 30-100 [facility] Comment on above: Result Comment: MAYA MIN D STATUS 25(OH)VITAMIN D RANGE (ng/mL) Deficient <20 Insufficient 20 to <30 Sufficient 30 to 100 Reference: Umesh MF,Cheyanne NC, Elio MELVIN, et al. Evaluation,treatment, and prevention of vitamin D deficiency; an Endocrine Society clinical practice guideline. JCEM. 2010; 96(7):1911-30. PERFORMED BY: [address] [address] PATHOLOGIST ECONOMIC DEVELOPMENT DIRECTOR PADILLA MOLINA M.D. Performed By: #### L IPID, TSH3 wRFLX, [id number] #### [address] [place] [address] [facility] Vitamin D+Metabolites [Mass/ volume] in Serum or PlasmaOrdered By: Dank Green on 08-17-2024 Vitamin D+Metabolites [Mass/Vol] Vitamin D+Metabolites [Mass/volume] in Serum or Plasma Low 30-100 [facility] Comment on above: VITAMIN D STATUS 25( [place])VITAMIN D RANGE (ng/mL) Deficient <20 Insufficient 20 to <30Sufficient 30 to 100Reference: Umesh MF,Cheyanne WOLF, Elio MELVIN, et al. Evaluation,treatment, and prevention of vitamin D deficiency; an Endocrine Society clinical practice guideline. JCEM. 2010; 96(7):1911-30. CNOVon 08-13-2024 CNOV Office Visit (CARDMN ) MEREDITHORION Eleuterio ([id number]) 1990 F Date Time Provider Department 08/13/24 2:30 PM SOLO MORA CARDLISETH During your visit today, we recorded the following information about you: Pulse Blood pressure Weight Height 92/minute 140/96 81.6 kg 1.6 m Solo Mora MD 08/26/2024 3:56 PM Signed [facility] [place] [facility] Department of Cardiovascular Medicine SECTION OF CARDIAC PACING and ELECTROPHYSIOLOGY OUTPATIENT VISIT DATE August 13, 2024 OUTPATIENT VISIT TYPE ESTABLISHED PRIMARY CARE PHYSICIAN: Giovani Hagen MD [address] [place] [address] CHIEF COMPLAINT: Syncope HISTORY OF PRESENT ILLNESS:(NURSING INTAKE HISTORY) Ms. Harper is a 33 year old female who presents today for follow-up visit syncope. She was last seen in office by Dr. Mora on 12/19/2023. She has a PMH of IBS, bipolar disease, asthma and syncope. During the last visit she reported playing sports in college with exertional syncope. She did not follow up at that time. She stopped playing sports, and had no recurrence of syncopal episodes beside once. She reported her last syncopal episode was in 2019 after she did an intense work out. Her preceding symptoms prior to syncope was a HR 185 bpm, lightheadedness and dizziness. She was followed by a zio patch on 12/2023 that showed 2 Ventricular Tachycardia runs occurred, the run with the fastest interval lasting 6 beats with a max rate of 182 bpm. An echo from 03/2024 showed an EF 55% and a stress echo from today reveals an EF 62% and no inducible ischemia. She reports feeling well. She c/o chest pain that last for about 5 minutes with exercise/exertion as a trigger and rest will terminate the chest pain. She c/o SOB with exertion. She c/o lightheadedness and dizziness with quick positional changes. She c/o palpitations that are brought on by exertion and with rest the palpitations will terminate. PAST MEDICAL HISTORY Diagnosis Date Asthma (HCC) Bipolar disorder (HCC) Diverticulitis 2017 Hypertension IBS (irritable bowel syndrome) Syncope PAST SURGICAL HISTORY Procedure Laterality Date ANKLE SURGERY HX SECTION HX x3 COLONOSCOPY 04/2018 IBS-c COLONOSCOPY SCREENING 2019 EGD DIAGNOSTIC 2022 HYSTERECTOMY HX HYSTEROSCOPY, DIAGNOSTIC (SEPARATE L'SCOPE CHOLECYSTECTOMY 2022 SOCIAL HISTORY Social History Tobacco Use Smoking status: Never Smokeless tobacco: Never Vaping Use Vaping status: Never Used Substance Use Topics Alcohol use: Yes Alcohol/week: 4.0 standard drinks of alcohol Types: 2 Cans of beer, 2 Shots of liquor per week Comment: socially Drug use: Never FAMILY HISTORY Problem Relation Age of Onset other (heart murmur) Brother Colon Cancer Maternal Grandfather started in the kidney other (murmur) Maternal Aunt ALLERGIES: ALLERGIES Allergen Reactions Iodinated Contrast * Anaphylaxis, Hives, Itching Cat Dander Anaphylaxis Iv Contrast [Iodine] Swelling, Itching Omnipaque 300: Patient experienced itching on her neck and left side of her face. Also, pt complained of tongue feeling itchy and feels like something is stuck in her throat . Patient received diphenhydramine (Benadryl) Omnipaque [Iohexol] Itching Tree Nuts Anaphylaxis MEDICATIONS: montelukast (SINGULAIR) 10 mg tablet Take 10 mg by mouth daily at bedtime. fluticasone/umeclidin /vilanter (TRELEGY ELLIPTA INHALATION) Inhale as instructed. escitalopram oxalate (LEXAPRO) 20 mg tablet Take 20 mg by mouth every morning. amphetamine-dextroamp hetamine XR (ADDERALL XR) 30 mg capsule Take 30 mg by mouth once daily. ALPRAZolam (XANAX) 0.5 mg tablet Take 0.25 mg by mouth two times a day. cariprazine (VRAYLAR) 4.5 mg capsule Take 4.5 mg by mouth once daily. Kartik Espinosa RN PHYSICAL EXAMINATION: BP 140/96 Pulse 92 Ht 160 cm (5' 3 ) Wt 81.6 kg (180 lb) LMP 05/25/2015 BMI 31.89 kg/m? General: Well appearing, in no acute [...] alert, cooperative, gait coordinated. CARDIOVASCULAR MEDICINE TESTING: EK08/13/2024 EXERCISE STRESS TEST: 08/13/2024 CONCLUSIONS: - Exam indication: Syncope - The exercise stress echo was negative for ischemia (more content not included)... Normal [facility] STRESS ECHO TREADMILLon 04-2 STRESS ECHO TREADMILL Stress Rn Registry Report: Stress Echo [facility] J1-5 Date of service: 08/13/2024 12:34:08 PM LOW PRESSURE Supervising physician: Geremias Higuera MD PATIENT: Name: ORION HARPER Age: 33 years Gender: F The supervising physician was in the department and immediately available. Final -------- Echocardiography Report: Stress Echo [facility] J1-5 Date of service: 08/13/2024 12:34:08 PM LOW PRESSURE Ordering physician: SOLO MORA Indication: Syncope Technologist: Dixie Melendrez Fellow: Kiley Gallagher MD Interpreting physician: Geremias Higuera MD PATIENT: Name: ORION HARPER : 1990 Age: 33 years Gender: F Height: 157.50 cm BSA: 1.92 m Weight: 83.92 kg BMI: 33.8 kg/m Heart rate 92 bpm Blood pressure 112/82 mmHg Color Doppler was utilized to interrogate the cardiac valves assessed and spectral Doppler was utilized to determine the flow velocities and pressure gradients reported in this exam. Myocardial strain analysis was performed in this exam to aid in the assessment of cardiac function. MEASUREMENTS: Value Indexed Normal Max aortic dimension 2.7 cm Ao < 3.8 Left atrial volume 49 ml (biplane A-L) 27 ml/m Marcelino <= 34 LV ID (diastole) 4.2 cm (2D) 2.19 cm/m LV ID (systole) 2.6 cm (2D) 1.34 cm/m IVS, leaflet tips 0.8 cm (2D) Posterior wall thickness 0.8 cm (2D) Left ventricular mass 102 g (2D) 53 g/m Global peak long strain -19.1 % LV stroke volume 59 ml (2D biplane) LV end diastolic volume 95 ml (2D biplane) 49.5 ml/m 29<=EDVi<62 LV end systolic volume 36 ml (2D biplane) 18.6 ml/m Ejection Fraction 62 % (2D biplane) EF > 54 FINDINGS: LEFT VENTRICLE The left ventricle is normal in size. There is normal wall thickness. Left ventricular systolic function is normal. Global LV myocardial strain is normal. Left ventricular diastolic function was not evaluated due to E/A fusion. Mitral annular lateral E/e': 5.7. Mitral annular septal E/e': 6.2. Wall Motion: Rest: All scored segments are normal. Stress: All scored segments are normal. RIGHT VENTRICLE The right ventricle is normal in size. Right ventricular systolic function is normal. RV systolic tissue Doppler velocity is 17.0 cm/s. Tricuspid annular displacement is 2.4 cm. LEFT ATRIUM The left atrial cavity is normal in size. RIGHT ATRIUM The right atrial cavity is normal in size. MITRAL VALVE There is trace mitral valve regurgitation. There is no thickening. The peak mitral E/A ratio is 1.18. The average mitral E/e' ratio is 6.0. TRICUSPID VALVE There is trace tricuspid valve regurgitation. There is no thickening. AORTIC VALVE There is no aortic valve stenosis. There is no aortic valve regurgitation. There is no thickening. The peak gradient is 10 mmHg (peak velocity = 155.0 cm/s). PULMONIC VALVE The pulmonic valve was not seen or not interrogated. AORTA The visualized aorta is normal in size. Measurements - Sinus: 2.7 cm. Mid ascending aorta 2.5 cm. PERICARDIUM There is no pericardial effusion. STRESS ECHO Peak HR 169 bpm. (92 % MPHR) Peak BP 160 mmHg/82 mmHg. The left ventricular cavity size is decreased with stress. CONCLUSIONS: - Exam indication: Syncope - The exercise stress echo was negative for ischemia at 92 % of MPHR (8.3 METS). - The left ventricle is normal in size. Left ventricular systolic function is normal. EF = 62 5% (2D biplane) - The right ventricle is normal in size. Right ventricular systolic function is normal. - AV morphology not clearly shown, though likely tricuspid. No evidence of hemodynamicallly significant aortic stenosis or regurgitation. - There are no significant valvular abnormalities. - Exam was compared with the prior echocardiographic exam performed on 04/09/2024 ([place]). The major resting echocardiographic findings are comparable. Final -------- Stress ECG Report: Stress Echo [facility] J1-5 Date of service: 08/13/2024 12:34:08 PM LOW PRESSURE Ordering physician: SOLO MORA acute specialist: Bunny Epperson Fellow: Kiley Gallagher MD Interpreting physician: Geremias Higuera MD Patient name: ORION HARPER Age: 33 years Gender: F Height: 157.50 cm BSA: 1.92 m Weight: 83.92 kg BMI: 33.8 kg/m Indication: Syncope / near-syncope Stress ECG Conclusion: Conclusion: Normal Stress ECG Summary: The patient's resting heart rate was 92 bpm and blood pressure was 112/82 mmHg. The patient exercised according to the Jerzy protocol. The estimated end-exercise MET level achieved using the FRIEND equation was 8.3, which is within the 25th to 50th percentile for age and sex. The estimated e (more content not included)... Normal [facility] 07-26-2024 [facility] Telephone (TANI) ORION HARPER ([id number]) 1990 F Date Time Provider Department 07/26/24 CAROL WINN During your visit today, we recorded the following information about you: Acacia Gonzalez 07/26/2024 11:38 AM Signed Pt called in asking for lab test results. Please call pt back and advise pt. Benito Soriano, JW 07/26/2024 11:45 AM Signed Latest Reference Range AND Units 04/26/24 15:01 07/10/24 11:43 Sodium 136 - 144 mmol/L 138 136 Potassium 3.7 - 5.1 mmol/L 4.0 3.6 (L) Chloride 98 - 107 mmol/L 100 102 CO2 22 - 30 mmol/L 25 23 BUN 7 - 21 mg/dL 12 9 Creatinine 0.58 - 0.96 mg/dL 0.58 0.71 Glucose 74 - 99 mg/dL 95 121 (H) Protein, Total 6.3 - 8.0 g/dL 8.0 7.3 Calcium 8.5 - 10.2 mg/dL 9.2 9.4 Albumin 3.9 - 4.9 g/dL 4.7 4.5 Bilirubin, Total 0.2 - 1.3 mg/dL 0.3 0.4 Alkaline Phosphatase 34 - 123 U/L 144 (H) 130 (H) ALT 7 - 38 U/L 192 (H) 141 (H) AST 13 - 35 U/L 99 (H) 90 (H) Anion Gap 8 - 15 mmol/L 13 11 (L): Data is abnormally low (H): Data is abnormally high Latest Reference Range AND Units 04/26/24 15:01 07/10/24 11:43 Ferritin 14.7 - 205.1 ng/mL 420.9 (H) 392.0 (H) (H): Data is abnormally high Iliana, Looks like labs were completed at [facility]. Patient is asking about results. Thank you, JW Duran Tracey, RN 07/26/2024 12:38 PM Signed Iliana Mercado PA-C You25 minutes ago (12:04 PM) LY Liver enzymes stable, chronic liver disease work up was negative. For ongoing liver work up, we can refer to hepatology. Appears Dr. Mcconnell ordered a liver biopsy as well. Thank you Iliana Mercado PA-C Call to patient, Reviewed that liver enzymes stable, chronic liver disease work up negative. For ongoing liver work up, can refer to hepatology. Patient given phone number to schedule with Dr. Morales. Patient stating liver biopsy was cancelled. Iliana, Patient is asking about decrease in ferritin level. She is ok with message. Benito Soriano RN Allergies As of Date: 07/26/2024 Noted Allergy Reaction IODINATED CONTRAST MEDIA 04/12/2019 10 - Anaphylaxis 4 - Hives 9 - Itching CAT DANDER 07/10/2024 10 - Anaphylaxis IV CONTRAST (IODINE) 04/11/2019 7 - Swelling 9 - Itching Comments: Omnipaque 300: Patient experienced itching on her neck and left side of her face. Also, pt complained of tongue feeling itchy and feels like something is stuck in her throat . Patient received diphenhydramine (Benadryl) OMNIPAQUE (IOHEXOL) 04/12/2019 9 - Itching TREE NUTS 07/10/2024 10 - Anaphylaxis Date Reviewed: 07/10/2024 Reviewed by: Diamante Gupta MA - Fully Assessed Prescriptions as of 08/15/2024 - metoprolol succinate ER (TOPROL XL) 25 mg 24 hr tablet Take 1 tablet by mouth once daily. - montelukast (SINGULAIR) 10 mg tablet Take [...] once daily. Problem List As Of Date 07/26/2024 Noted Resolved Gastroparesis [K31.84] 11/02/2022 Encounter Status:Closed by ACACIA GONZALEZ on 08/15/[address] [facility] CNOVon 07-10-2024 CNOV Office Visit (OBGYCC ) MEREDITHORION Eleuterio ([id number]) 1990 F Date Time Provider Department 07/10/24 9:30 AM JAVY BOUDREAUX [facility] During your visit today, we recorded the following information about you: Pulse Blood pressure Weight Height 108/minute 131/90 86.2 kg 1.588 m Last Period 05/25/15 Javy Boudreaux MD 07/10/2024 10:15 AM Signed SUBJECTIVE: Oriontuyet Harper is a 33 year old female Patient presents with: Vaginal Problem: Pt presents today for consult - painful intercourse Referred here by her REMOTE SENSING TECHNICIAN at [place]. Has been having pain with intercourse for at least few months With her x 14 years. Because of the pain she would have to take a break for a week after intercourse. She denies exam and Cx due to a cast on her right foot. She had diagnostic LS in 05/18 and was told it was normal and no endometriosis. CURRENT MEDICATIONS: Current Outpatient Medications Medication Sig hydrOXYzine pamoate (VISTARIL) 25 mg capsule Take 25 mg by mouth every 6 hours as needed. LORazepam (ATIVAN) 0.5 mg Take 0.5 mg by mouth daily at bedtime. montelukast (SINGULAIR) 10 mg tablet Take 10 mg by mouth daily at bedtime. fluticasone/umeclidin /vilanter (TRELEGY ELLIPTA INHALATION) Inhale as instructed. escitalopram oxalate (LEXAPRO) 20 mg tablet Take 20 mg by mouth every morning. amphetamine-dextroamp hetamine XR (ADDERALL XR) 30 mg capsule Take 30 mg by mouth once daily. cariprazine (VRAYLAR) 4.5 mg capsule Take 4.5 mg by mouth once daily. ALPRAZolam (XANAX) 0.5 mg tablet Take 0.25 mg by mouth two times a day. (Patient not taking: Reported on 07/10/2024) No current facility-administered medications for this visit. Reviewed: PAST SURGICAL HISTORY Procedure Laterality Date SECTION HX x3 COLONOSCOPY 04/2018 IBS-c COLONOSCOPY SCREENING 2019 EGD DIAGNOSTIC 2022 HYSTEROSCOPY, DIAGNOSTIC (SEPARATE L'SCOPE CHOLECYSTECTOMY 2022 VAGINAL HYSTERECTOMY PAST MEDICAL HISTORY Diagnosis Date Asthma Bipolar disorder (HCC) Diverticulitis 2017 Hypertension IBS (irritable bowel syndrome) Social History Tobacco Use Smoking status: Never Smokeless tobacco: Never Vaping Use Vaping status: Never Used Substance Use Topics Alcohol use: Yes Alcohol/week: 4.0 standard drinks of alcohol Types: 2 Cans of beer, 2 Shots of liquor per week Comment: socially Drug use: Never Iodinated Contrast Media, Cat Dander, Iv Contrast [Iodine], Omnipaque [Iohexol], and Tree Nuts Labs: Hemoglobin A1C (%) Date Value 10/17/2022 4.7 ) No results found for: CHOL , HDL , LDL , TG REVIEW OF SYSTEMS:GENERAL: No weight loss, malaise or fevers HEENT: Negative for frequent or significant headaches, No changes in hearing or vision, no nose bleeds or other nasal problems NECK: Negative for lumps, goiter, pain and significant neck swelling RESPIRATORY: Negative for cough, hemoptysis, wheezing, COPD, dyspnea or shortness of breath CARDIOVASCULAR: Negative for chest pain, leg swelling, hypertension, CHF or palpitations GI: No nausea, vomiting, or diarrhea PHYSICAL EXAMINATION: BP 131/90 Pulse 108 Ht 5' 2.5 (1.59m) Wt 190 lb (86.2kg) LMP 05/25/2015 BMI 34.18 kg/(m2). GENERAL APPEARANCE: pleasant, well developed, well nourished, white female in no apparent distress NECK: Full range of motion, no adenopathy, thyroid normal, no goiter, and lymphnodes normal, no lymphadenopathy ASSESSMENT/PLAN: 1. Other specified dyspareunia - ICD9: 625.0, ICD10: N94.19 (primary diagnosis) Counseled in length Will do PUS and refer to pelvic pain. - PELVIC US WHI - CONSULT TO REMOTE SENSING TECHNICIAN PELVIC PAIN 2. Pelvic pain in female - ICD9: 625.9, ICD10: R10.2 - counseled. - PELVIC US WHI - CONSULT TO REMOTE SENSING TECHNICIAN PELVIC PAIN Javy Boudreaux MD Medical Decision Making: Problems: Moderate: New problem with uncertain prognosis Data: Unique test(s) ordered: 2 Risk: Low: Low risk from testing/treatment Medical Decision Making Level: 3 - Low Referring Provider: DARWIN STARR [[id number]] Allergies As of Date: 07/10/2024 Noted Allergy Reaction IODINATED CONTRAST MEDIA 04/12/2019 10 - Anaphylaxis 4 - Hives 9 - Itching CAT DANDER 07/10/2024 10 - Anaphylaxis IV CONTRAST (IODINE) 04/11/2019 7 - Swelling 9 - Itching Comments: Omnipaque 300: Patient experienced itching on her neck and left side of her face. Also, pt complained of tongue feeling itchy and feels like something is stuck in her throat . Patient received diphenhydramine (Benadryl) OMNIPAQUE (IOHEXOL) 04/12/2019 9 - Itching TREE NUTS 07/10/2024 10 - Anaphylaxis Date Reviewed: 07/10/2024 Reviewed by: Diamante Gupta MA - Fully Assessed Reason for Visit: Vaginal Problem [117] Cmt: Pt presents today for consult - painful intercourse Primary Visit Diagnosis:Other specified dyspareunia [N94.19] Other Visit Diagnosis:Pelvic edward (more content not included)... Normal [facility] Comprehensive metabolic 2000 panelon 07-10-2024 Albumin [Mass/Vol] 4.5 g/dL Normal 3.9-4.9 [facility] Comment on above: Order Comment: Speci men Type: BLOOD SPECIMENOrdering Facility: [facility] Address: [address] [place] [address] Performed By: #### 2 4323-8, 2275- ####[facility] LABCLIA [id number] [place] [address] [place] ALP [Catalytic activity/Vol] 130 U/L High 34-123 [facility] Comment on above: Order Comment: Speci men Type: BLOOD SPECIMENOrdering Facility: [facility] Address: [address] [place] [address] Performed By: #### 2 4323-8, 2275- ####[facility] LABCLIA [id number] [place] [address] [place] ALT [Catalytic activity/Vol] 141 U/L High 7-38 [facility] Comment on above: Order Comment: Speci men Type: BLOOD SPECIMENOrdering Facility: [facility] Address: [address] [place] [address] Performed By: #### 2 4323-8, 2275-07 ####[facility] LABCLIA [id number] [address] [address] [place] Anion gap [Moles/Vol] 11 mmol/L Normal 8-15 [facility] Comment on above: Order Comment: Speci men Type: BLOOD SPECIMENOrdering Facility: [facility] Address: [address] [place] [address] Performed By: #### 2 4323-8, 2275- ####[facility] LABCLIA [id number] [place] [id number] [place] AST [Catalytic activity/Vol] 90 U/L High 13-35 [facility] Comment on above: Order Comment: Speci men Type: BLOOD SPECIMENOrdering Facility: [facility] Address: [address] [place] [address] Performed By: #### 2 4323-8, 2275- ####[facility] LABCLIA [id number] [place] [address] [place] Bilirubin [Mass/Vol] 0.4 mg/dL Normal 0.2-1.3 [facility] Comment on above: Order Comment: Speci men Type: BLOOD SPECIMENOrdering Facility: [facility] Address: [address] [place] [address] Performed By: #### 2 4323-8, 2275-07 ####[facility] LABIA [id number] [place] [address] [place] Calcium [Mass/Vol] 9.4 mg/dL Normal 8.5-10.2 [facility] Comment on above: Order Comment: Speci men Type: BLOOD SPECIMENOrdering Facility: [facility] Address: [address] [place] [address] Performed By: #### 2 4323-8, 2275-07 ####[facility] LABIA [id number] [place] [address] [place] Chloride [Moles/Vol] 102 mmol/L Normal 98-107 [facility] Comment on above: Order Comment: Speci men Type: BLOOD SPECIMENOrdering Facility: [facility] Address: [address] [place] [address] Performed By: #### 2 4323-8, 2275-07 ####[facility] LABCLIA [id number] [place] [id number] [place] CO2 [Moles/Vol] 23 mmol/L Normal 22-30 [facility] Comment on above: Order Comment: Speci men Type: BLOOD SPECIMENOrdering Facility: [facility] Address: [address] [place] [address] Performed By: #### 2 4323-8, 2275-07 ####[facility] LABCLIA [id number] [address] [address] [place] Creatinine [Mass/Vol] 0.71 mg/dL Normal 0.58-0.96 [facility] Comment on above: Order Comment: Speci men Type: BLOOD SPECIMENOrdering Facility: [facility] Address: [address] [place] [address] Performed By: #### 2 4323-8, 2275-07 ####[facility] LABCLIA [id number] [address] [address] [place] Creatinine and Glomerular filtration rate.predicted panel (S/P/Bld) 114 mL/min/1.73m??? Normal >=60 [facility] Comment on above: Order Comment: Speci men Type: BLOOD SPECIMENOrdering Facility: [facility] Address: [address] [place] [address] Result Comment: Chely mated Glomerular Filtration Rate [...] accurately reflect actual GFR. Performed By: #### 2 4323-8, 2275-07 ####[facility] LABCLIA [id number] [address] [address] [place] Glucose [Mass/Vol] 121 mg/dL High 74-99 [facility] Comment on above: Order Comment: Speci men Type: BLOOD SPECIMENOrdering Facility: [facility] Address: [address] [place] [address] Result Comment: The [place] [employer] (ADA) provides guidance for cutoff [...] Standards of Medical Care in Diabetes 2016, [place] [employer]. Diabetes Care. 2016.39(Suppl 1). Performed By: #### 2 4323-8, 2275- ####[facility] LABIA [id number] [place] [address] [place] Potassium [Moles/Vol] 3.6 mmol/L Low 3.7-5.1 [facility] Comment on above: Order Comment: Speci men Type: BLOOD SPECIMENOrdering Facility: [facility] Address: [address] [place] [address] Performed By: #### 2 4323-8, 2275-07 ####[facility] LABIA [id number] [place] [address] [place] Protein [Mass/Vol] 7.3 g/dL Normal 6.3-8.0 [facility] Comment on above: Order Comment: Speci men Type: BLOOD SPECIMENOrdering Facility: [facility] Address: [address] [place] [address] Performed By: #### 2 4323-8, 2275-07 ####[facility] LABIA [id number] [address] [address] [place] Sodium [Moles/Vol] 136 mmol/L Normal 136-144 [facility] Comment on above: Order Comment: Speci men Type: BLOOD SPECIMENOrdering Facility: [facility] Address: [address] [place] [address] Performed By: #### 2 4323-8, 2276-4 ####[facility] LABCLIA [id number] [place] [id number] [place] Urea nitrogen [Mass/Vol] 9 mg/dL Normal 7-21 [facility] Comment on above: Order Comment: Speci men Type: BLOOD SPECIMENOrdering Facility: [facility] Address: [address] [place], [place] [address] Performed By: #### 2 4323-8, 6-4 ####[facility] LABCLIA [id number] [place] [id number] [place] Ferritin SerPl-mCncon 2024 Ferritin [Mass/Vol] 392.0 ng/mL High 14.7-205.1 [facility] Comment on above: Order Comment: Speci men Type: BLOOD SPECIMENOrdering Facility: [facility] Address: [address] [place] [address] Performed By: #### 2 4323-8, 6-4 ####[facility] LABIA [id number] [place] [id number] [place] US Pelvison 07-10-2024 Indication pelvic pain, dyspareunia Impression Uterus is surgically absent. Right Ovary is normal. Left Ovary is normal. No adnexal masses or free fluid. Recommendations Normal pelvic ultrasound. Patient unable to tolerate placement of vaginal ultrasound probe, consider evaluation by pelvic floor PT. History Medical History Other: Past gynecological operations: x 3, hysterectomy Method Transabdominal, transvaginal, Color Doppler examination Uterus Uterus: Not visualized Uterus details: total hysterectomy noted Right Ovary Rt ovary: Visualized Outline: smooth Rt ovary morphology: normal Rt ovary D1 21 mm Rt ovary D2 15 mm Rt ovary D3 14 mm Rt ovary Vol 2.3 cm Left Ovary Lt ovary: Visualized Outline: smooth Lt ovary morphology: normal Lt ovary D1 26 mm Lt ovary D2 19 mm Lt ovary D3 20 mm Lt ovary Vol 5.2 cm Lt ovarian follicle(s): Follicles identified Lt ovarian follicle D1 14.1 mm Lt ovarian follicle D2 10.5 mm Lt ovarian follicle mean 12.3 mm Lt ovarian follicle vol 0.818 cm [place] Visualized. no free fluid visualized Performed By: Sayra Kate RDMS Read By: Lluú Washburn M.D. MATERNAL MEDICINE [facility] Radiology Study observation (narrative) [facility] XR ABD 2V SUPINE W UPR/DECUB /CTLon 07-10-2024 XR ABD 2V SUPINE W UPR/DECUB/CTL * * *Final Report* * * DATE OF EXAM: Jul 10 2024 11:30AM CRX [id number] - XR ABD 2V SUPINE W UPR/DECUB/CTL / PROCEDURE REASON: Chronic idiopathic constipation * * * * Physician Interpretation * * * * PROCEDURE: XR ABD 2V SUPINE W UPR/DECUB/CTL INDICATION: Chronic idiopathic constipation TECHNIQUE: AP and upright/decubitus views COMPARISON: FINDINGS: The bowel gas pattern is nonspecific without evidence for obstruction or ileus. No pneumoperitoneum is present. Mild to moderate colonic stool content with stool seen in the right and transverse colon. No abnormal masses or calcifications are seen. No acute osseous process is evident. IMPRESSION: Mild to moderate colonic stool content Clinical Project Manager: [facility] HOSPITALDean Transcribe Date/Time: Jul 13 2024 9:59A Dictated by : BUNNY LIANG MD This examination was interpreted and the report reviewed and electronically signed by: BUNNY LIANG MD on Jul 13 2024 10:05AM EST [id number] Normal [facility] XR Ankle - right 3 Viewson 0 07-03-2024 Imaging Result: Three views were taken today AP/MORT/LAT Ankle: No fractures or dislocations seen joint in good position and alignment [facility] Radiology Study observation (narrative) [facility] RECURRENT VAGINITIS (HTRX)on 06-26-2024 ATOPOBIUM VAGINAE 0 [facility] ATOPOBIUM VAGINAE Not detected [facility] BVAB 2,3 (BACTERIAL VAGINOSIS ASSOCIATED BACTERIA 2, 3); MOBILUNCUS SPP 0 [facility] BVAB 2,3 (BACTERIAL VAGINOSIS ASSOCIATED BACTERIA 2, 3); MOBILUNCUS SPP Not detected [facility] SHARIF ALBICANS, PARAPSILOSIS, TROPICALIS 0 [facility] SHARIF ALBICANS, PARAPSILOSIS, TROPICALIS Not detected [facility] SHARIF GLABRATA 0 [facility] SHARIF GLABRATA Not detected [facility] SHARIF KRUSEI 0 [facility] SHARIF KRUSEI Not [facility] CHLAMYDIA TRACHOMATIS [facility] CHLAMYDIA TRACHOMATIS Not detected [facility] GARDNERELLA VAGINALIS 0 [facility] GARDNERELLA VAGINALIS Not detected [facility] MEGASPHAERA (TYPES 1, 2) 0 [facility] MEGASPHAERA (TYPES 1, 2) Not detected [facility] MYCOPLASMA GENITALIUM 0 [facility] MYCOPLASMA GENITALIUM Not detected [facility] NEISSERIA GONORRHOEAE 0 [facility] NEISSERIA GONORRHOEAE Not detected [facility] TRICHOMONAS VAGINALIS 0 [facility] TRICHOMONAS VAGINALIS Not detected [facility] MLR HEMOGLOBIN A1Con 025 Glucose [Mass/Vol] 126 mg/dL [facility] HbA1c (Bld) [Mass fraction] 6 % 4.5 - 6.2 % [facility] Comment on above: ADA RECOMMENDED LIMI T 4.0 - 6.0 ADA THERAPEUTIC TARGET < 7.0 ACTION SUGGESTED > 7.0 [facility] ALL CBC WITH AUTO DIFFon BASOPHILS ABSOLUTE AUTO 0 [facility] Basophils/100 WBC (Bld) 0.4 % 0.2 - 2.0 % [facility] Eosinophils/100 WBC (Bld) 4.4 % 0.9 - 7.0 % [facility] Erythrocyte distribution width (RBC) [Ratio] 13.2 % 11.0 - 15.0 % [facility] Hematocrit (Bld) [Volume fraction] 41.6 % 36.0 - 48.0 % [facility] Hemoglobin (Bld) [Mass/Vol] 14 g/dL 12.0 - 16.0 g/dL [facility] IMMATURE GRANULOCYTES ABS AUTO 0.13 High [facility] Immature granulocytes/100 WBC (Bld) 1.6 % High 0.0 - 0.5 % [facility] Interpretation and review of laboratory results Abnormal [facility] LYMPHOCYTES ABSOLUTE AUTO 2.7 [facility] Lymphocytes/100 WBC (Bld) 33.8 % 20.5 - 60.0 % [facility] MCH (RBC) [Entitic mass] 32.6 pg 26.7 - 34.0 pg [facility] MCHC (RBC) [Mass/Vol] 33.7 g/dL 29.9 - 35.2 g/dL [facility] MCV (RBC) [Entitic vol] 96.7 fL 81.0 - 99.0 fL [facility] MONOCYTES ABSOLUTE AUTO 0.5 [facility] Monocytes/100 WBC (Bld) 5.9 % 1.7 - 12.0 % [facility] NEUTROPHILS ABSOLUTE AUTO 4.4 [facility] Neutrophils/100 WBC (Bld) 53.9 % 43.0 - 75.0 % [facility] Platelet mean volume (Bld) [Entitic vol] 10.4 fL 9.5 - 13.5 fL [facility] TBH EO # 0.4 [facility] TB PLT [address] [facility] RBC 4.3 [facility] WBC 8.1 [facility] C. difficile toxin genes SHEILA +probe Ql (Stl)on 05-23-2024 Interpretation and review of laboratory results Abnormal [facility] CLOSTRIDIUM DIFFICILE TOXIN BY PCRon 05-23-2024 C. difficile toxin genes SHEILA+probe Ql (Stl) Positive Abnormal Negative for C. difficile toxin by PCR [facility] Comment on above: A positive PCR [...] [place] 05-23-2024 HUYEN Telephone (TANI) ORION HARPER ([id number]) 1990 F Date Time Provider Department 05/23/24 [...] Sent: 05/23/2024 2:44 PM EST To: Iliana Mercado PA-C Bc Atkins, your stool is positive for C.diff I [...] Resolved Gastroparesis [K31.84] 11/02/2022 Encounter Status:Closed by SURESH BENITO on 05/24/[address] [facility] ANES POSTPROC EVALon 025 ANES POSTPROC EVAL HNO ID: [id number] Author: OBED BHATT APRN.CRNA Service: Anesthesiology Author Type: Nurse Lock Stitch Channeler Type: Anesthesia Postprocedure Evaluation Filed: 05/22/2024 14:22 Note Text: POST ANESTHESIA EVALUATION NOTE : 1990 Procedure Summary Date: 05/22/24 Room / Location: Ambulatory Surgery Anesthesia Start: 1345 Anesthesia Stop: 1422 Procedure: COLONOSCOPY DIAGNOSTIC Diagnosis: BRBPR (bright red blood per rectum) (Rectal bleeding) Scheduled Providers: Carol Winn MD; Obed Bhatt APRN.BACON SLICER; Millicent Schmitz RN Responsible Provider: Obed Bhatt [...] May 22, 2024 TIME: 2:22 PM CSN: [id number] Normal [facility] ANES PRE-OPon 05-22-2024 ANES PRE-OP HNO ID: [id number] Author: OBED BHATT APRN.CRNA Service: Anesthesiology Author Type: Nurse Lock Stitch Channeler Type: Anesthesia Preprocedure Evaluation Filed: 05/22/2024 14:23 Note Text: ANESTHESIOLOGY DAY OF SURGERY NOTE : 1990 Procedure Information Anesthesia Start Date/Time: 05/22/24 1345 Scheduled providers: Carol Winn MD; Obed Bhatt APRN.BACON SLICER; Millicent Schmitz RN Procedure: COLONOSCOPY DIAGNOSTIC Location: [...] and consent discussed: yes. Patient / Responsible Democrat agrees to proceed: yes Patient / Surrogate [...] May 22, 2024 TIME: 2:22 PM CSN: [id number] Normal [facility] PRE-OP HNO ID: [id number] Author: OBED BHATT APRN.CRNA Service: Anesthesiology Author Type: Nurse Lock Stitch Channeler Type: Anesthesia Preprocedure Evaluation Filed: 05/22/2024 14:21 Note Text: ANESTHESIOLOGY DAY OF SURGERY NOTE : 1990 Procedure Information Anesthesia Start Date/Time: 05/22/24 1345 Scheduled providers: Carol Winn MD; Obed Bhatt APRN.DAHLIA; Millicent Schmitz RN Procedure: COLONOSCOPY DIAGNOSTIC Location: [...] and consent discussed: yes. Patient / Responsible Democrat agrees to proceed: yes Patient / Surrogate [...] 48 hours of Surgery/Procedure. SIGNATURE: Obed Bhatt APRN.BACON SLICER PATIENT NAME: Orion Harper DATE: May 22, 2024 TIME: 2:18 PM CSN: [id number] Normal [facility] C diff Tox gens Stl Ql SHEILA+p robeon 05-22-2024 C. difficile toxin genes SHEILA+probe Ql (Stl) Positive Abnormal Negative for C. difficile toxin by PCR [facility] Comment on above: Order Comment: Speci chetna Type: STOOL SPECIMENOrdering Facility: [facility] Address: [address] [place] [address] Result Comment: A po sitive PCR result [...] submission. Performed By: #### 5 4067-4, CDEIA ####[facility] LABCLIA [id number] [place] [address] [place] CLOSTRIDIUM DIFFICILE TOXIN BY EIAon 05-22-2024 C. difficile toxin A+B IA Ql (Stl) Not detected Normal Negative for C. difficile toxin [facility] Comment on above: Order Comment: Specmaribel basilio Type: STOOL SPECIMENOrdering Facility: [facility] Address: [address] [place] [address] Result Comment: Toxi n EIA is less sensitive than cell cytotoxin and PCR assays. Clinical correlation of PCR positive/toxin EIA negative results is required to distinguish C. difficle colonization from disease. Performed By: #### 5 4067-4, CDEIA ####[facility] LABCLIA [id number] [place] [address] [place] COLONOSCOPYon 05-22-2024 [facility] Gastroenterology Gastrointestinal Endoscopy Patient Name: Orion Harper Procedure Date: 05/22/2024 1:40 PM Date of : 1990 Admit Type: Outpatient Age: 33 Room: [place] [address] Gender: Female Note Status: Finalized Attending MD: Carol Winn MD, [id number] Procedure: Colonoscopy Indications: Rectal bleeding, Change in [...] by the physician, the nurse, the machine printer and the refrigerator repair technician in the procedure room. Mental Status [...] bowel preparation was evaluated using the BBPS ([place] Bowel Preparation Scale) with scores of: Right [...] included)... [facility], Radiologist, MD - 05/22/2024 [facility] Gastroenterology Gastrointestinal Endoscopy Patient Name: Orion Harper Procedure Date: 05/22/2024 1:40 PM Date of : 1990 Admit Type: Outpatient Age: 33 Room: [place] [address] Gender: Female Note Status: Finalized Attending MD: Carol Winn MD, [id number] Procedure: Colonoscopy Indications: Rectal bleeding, Change in [...] by the physician, the nurse, the machine printer and the refrigerator repair technician in the procedure room. Mental Status [...] bowel preparation was evaluated using the BBPS ([place] Bowel Preparation Scale) with scores of: Right [...] once a da (more content not included)... [facility] [employer] COLONOSCOPYOrdered By: Amen.t Radiology on 05-22-2024 [facility] Work Phone: Colonoscopyon 05-22-2024 Colonoscopy [facility] Gastroenterology Gastrointestinal Endoscopy Patient Name: Orion Harper Procedure Date: 05/22/2024 1:40 PM Date of : 1990 Admit Type: Outpatient Age: 33 Room: [facility] Gender: Female Note Status: Rn Registry Override Attending MD: Carol Winn MD, [id number] Procedure: Colonoscopy Indications: Rectal bleeding, Change in [...] by the physician, the nurse, the machine printer and the refrigerator repair technician in the procedure room. Mental Status [...] bowel preparation was evaluated using the BBPS ([place] Bowel Preparation Scale) with scores of: Right [...] previously scheduled. (more content not included)... Normal [facility] Flexible sigmoidoscopy study on 05-22-2024 [facility] Gastroenterology Gastrointestinal Endoscopy Patient Name: Orion Harper Procedure Date: 05/22/2024 1:40 PM Date of : 1990 Admit Type: Outpatient Age: 33 Room: [facility] 2 Gender: Female Note Status: Finalized Attending MD: Carol Winn MD, [id number] Procedure: Colonoscopy Indications: Rectal bleeding, Change in [...] by the physician, the nurse, the machine printer and the refrigerator repair technician in the procedure room. Mental Status [...] bowel preparation was evaluated using the BBPS ([place] Bowel Preparation Scale) with scores of: Right [...] were ph (more content not included)... [employer] [facility] Gastrointestinal pathogens i dentified SHEILA+probe Nom (Stl)on 05-22-2024 Campylobacter sp DNA SHEILA+probe Nom (Unsp spec) Not detected Normal Not Detected [facility] Comment on above: Order Comment: Speci men Type: STOOL SPECIMENOrdering Facility: [facility] Address: [address] [place] [address] Performed By: #### 7 9390-1 ####[facility] LABCLIA [id number] [place] [address] [place] Salmonella sp DNA SHEILA+probe Ql (Unsp spec) Not detected Normal Not Detected [facility] Comment on above: Order Comment: Speci men Type: STOOL SPECIMENOrdering Facility: [facility] Address: [address] [place] [address] Performed By: #### 7 9390-1 ####[facility] LABCLIA [id number] [place] [address] [place] Shiga toxin stx gene SHEILA+probe Nom (Unsp spec) Not detected Normal Not Detected [facility] Comment on above: Order Comment: Speci men Type: STOOL SPECIMENOrdering Facility: [facility] Address: [address] [place] [address] Performed By: #### 7 9390-1 ####[facility] LABCLIA [id number] [address] [place] Shigella sp DNA SHEILA+probe Ql (Unsp spec) Not detected Normal Not Detected [facility] Comment on above: Order Comment: Speci men Type: STOOL SPECIMENOrdering Facility: [facility] Address: [address] [place] [address] Performed By: #### 7 9390-1 ####[facility] LABCLIA [id number] [address] [place] HISTORY PHYSICALon HISTORY PHYSICAL HNO ID: [id number] Author: CAROL WINN MD Service: Gastroenterology Author [...] DATE: May 22, 2024 TIME: 1:[address] [facility] NURSING PROGon 05-22-2024 NURSING PROG HNO ID: [id number] Author: LINDSEY BUCKLEY RN Service: ? Author [...] Buckley RN In Department: AMBULATORY SURGERY Normal [facility] No Panel Informationon 05-22 Radiology Study observation (narrative) [facility] SURGICAL PATHOLOGYon 0[address] [facility] Comment on above: Order Comment: Speci men Type: TISSUE SPECIMENOrdering Facility: [facility] Address: [address] [place] [address] Result Comment: Surg ica Pathology Report Case: [id number] Authorizing Provider: Carol Winn MD Collected: 05/22/2024 02:05 PM Ordering Location: Ambulatory Surgery Received: 05/22/2024 08:39 PM Pathologist: Fe Barnes MD Specimens: A) - Colon, Right, Biopsy, r/o microscopic colitis, r/o inflammation B) - Colon, Left, Biopsy, r/o microscopic colitis, r/o inflammation Performed By: #### S ####[facility] LABCLIA [id number] [address] STATES OF [facility] FINAL DIAGNOSIS Normal [facility] Comment on above: Order Comment: Speci men Type: TISSUE SPECIMENOrdering Facility: [facility] Address: [address] [place] [address] Result Comment: A. C olon, right, biopsy: - Colonic mucosa with no significant pathologic change. B. Colon, left, biopsy: - Colonic mucosa with no significant pathologic change. Performed By: #### S ####[facility] LABCLIA [id number] [address] STATES OF [facility] FINAL PERFORMING LAB Normal [facility] Comment on above: Order Comment: Speci men Type: TISSUE SPECIMENOrdering Facility: [facility] Address: [address] [place] [address] Result Comment: Diag nostic interpretation performed at: [facility], [address] [place] [address] CLIA# [id number] Environmental Conservation Professor: Alhaji Galvez MD Performed By: #### S ####[facility] LABCLIA [id number] [address] [place] GROSS DESCRIPTION Normal [facility] Comment on above: Order Comment: Speci men Type: TISSUE SPECIMENOrdering Facility: [facility] Address: [address] [place] [address] Result Comment: A. C olon, Right, Biopsy [...] 2024 10:34 PM Gross examination performed at [facility], [address] [place] [address] Performed By: #### S ####[facility] [id number] [address] [place] XR Ankle - right 3 Viewson 0 05-15-2024 Imaging Result: XRAY: Three views were taken today AP/MORT/LAT Ankle: No fractures or dislocations seen no spurring noted at the lateral ankle ligament complex noted as reported on the MRI [facility] Radiology Study observation (narrative) [facility] ALL CBC WITH AUTO DIFFon BASOPHILS ABSOLUTE AUTO 0 [facility] Basophils/100 WBC (Bld) 0.4 % 0.2 - 2.0 % [facility] Eosinophils/100 WBC (Bld) 2.2 % 0.9 - 7.0 % [facility] Erythrocyte distribution width (RBC) [Ratio] 12.9 % 11.0 - 15.0 % [facility] Hematocrit (Bld) [Volume fraction] 41.2 % 36.0 - 48.0 % [facility] Hemoglobin (Bld) [Mass/Vol] 13.8 g/dL 12.0 - 16.0 g/dL [facility] IMMATURE GRANULOCYTES ABS AUTO 0.19 High [facility] Immature granulocytes/100 WBC (Bld) 1.9 % High 0.0 - 0.5 % [facility] Interpretation and review of laboratory results Abnormal [facility] LYMPHOCYTES ABSOLUTE AUTO 3 [facility] Lymphocytes/100 WBC (Bld) 30.1 % 20.5 - 60.0 % [facility] MCH (RBC) [Entitic mass] 32.7 pg 26.7 - 34.0 pg [facility] MCHC (RBC) [Mass/Vol] 33.5 g/dL 29.9 - 35.2 g/dL [facility] MCV (RBC) [Entitic vol] 97.6 fL 81.0 - 99.0 fL [facility] MONOCYTES ABSOLUTE AUTO 0.7 [facility] Monocytes/100 WBC (Bld) 6.6 % 1.7 - 12.0 % [facility] NEUTROPHILS ABSOLUTE AUTO 5.8 [facility] Neutrophils/100 WBC (Bld) 58.8 % 43.0 - 75.0 % [facility] Platelet mean volume (Bld) [Entitic vol] 10.8 fL 9.5 - 13.5 fL [facility] TBH EO # 0.2 [facility] TB PLT 206 [facility] RBC 4.22 [facility] WBC 9.9 [facility] CLINISYNC [facility] CNPNon 05-06-2024 CNPN Telephone (CARDMN) ORION HARPER ([id number]) 1990 F Date Time Provider Department 05/06/24 SOLO MORA During your visit today, we recorded the following information about you: Criss Mccrary 05/06/2024 1:41 PM Signed Echo was faxed to Anne-Marie @ [phone] AND scanned into outside ep. Patient is [...] Status:Closed by CRISS MCCRARY on 05/06/[address] [facility] Liver ultrasound attenuation by transient elastographyon [...] and referral to hepatology. Zehra Gray PA-C [facility] Fibroscan Fibrosis Risk <7 kPA = [...] Int J Clin Exp Med. 2015 Jan 15;8(10):93972-38. PMID: [id number]; PMCID: [id number]. Ruthann Bob, Juan FANTASMA, Rico M, Cosmo F, Tawnya J, Everardo O, Leyla F, Franci M, Alejandro G, Dorie A, Brogilbertoin E, Leyla L, French G, Kashmir A, Asotin U, Zapata S, Franc P, Max V, de Kole V, Pinalex M, Neo EA. Refining the Baveno elastography criteria for the definition of compensated advanced chronic liver disease. J Hepatol. 2020;74(5):0605-1667. doi: 10.1016/j.jhep.2020.1 1.050. Epub 2019Apr 01. PMID: [id number]. Izabel Bob, Chastity B, Martha Bob, Xiao Bob, Joon S, Nuria Roth, Trevin Roth, Trixie Kendrick. AASLD practice guidance on the clinical assessment and management of nonalcoholic fatty liver disease. Hepatology. 2022;77(5):0050-0757. doi:10.1097/HEP.94080 [id number] [facility] Radiology Study observation (narrative) [facility] Radiology Study observation (narrative) [facility] A1AT SerPl-mCncon 04-26-2024 Alpha 1 antitrypsin [Mass/Vol] 123 mg/dL Normal 90-200 [facility] Comment on above: Order Comment: Rl basilio Type: BLOOD SPECIMEN [facility] Address: [address] [place] [address] Performed By: #### 2 064-4, 1825-9 #### [facility] CLIA [id number] [address] [place] [address] [place] AFP SerPl-mCncon 04-26-2024 AFP [Mass/Vol] 3.01 ng/mL Normal <9.00 [facility] Comment on above: Order Comment: Rl basilio Type: BLOOD SPECIMEN [facility] Address: [address] [place] [address] Result Comment: The Alpha-Fetoprotein test was performed using the 3scaleel DxI immunoenzymatic assay. Results obtained with different assay methods or kits cannot be used interchangeably. Performed By: #### 1 834-1 #### [facility] CLIA [id number] [address] [place] [address] [place] DENY BY IFA WITH REFLEXon Nuclear Ab Ql (S) Negative Normal Negative [facility] Comment on above: Order Comment: Rl basilio Type: BLOOD SPECIMEN [facility] Address: [address] [place] [address] Result Comment: Anti -nuclear antibody test is used as an aid in diagnosis of systemic autoimmune diseases. Where positive and clinically warranted, follow-up using disease-specific testing is recommended. Low positive titers are not uncommon with advanced age, certain chronic infections, and malignancies among others. Test methodology: Indirect fluorescence immunoassay (IFA) using HEp-2 cells. Performed By: #### A NAIFR #### [facility] CLIA [id number] [address] [place] [address] [place] CBC W Auto Differential pane l (Bld)on 04-26-2024 Basophils (Bld) [#/Vol] 0.06 10*3/uL [facility] Differential cell count method Nom (Bld) Auto [facility] Eosinophils (Bld) [#/Vol] [facility] Immature granulocytes (Bld) [#/Vol] 0.33 10*3/uL High [facility] Immature granulocytes/100 WBC (Bld) 2.7 % [facility] Lymphocytes (Bld) [#/Vol] 2.80 10*3/uL [facility] MCH (RBC) [Entitic mass] 32.0 pg 26.0 - 34.0 pg [facility] Monocytes (Bld) [#/Vol] 0.41 10*3/uL [facility] Neutrophils (Bld) [#/Vol] 8.78 10*3/uL High [facility] Nucleated RBC (Bld) [#/Vol] [facility] Nucleated RBC/100 WBC (Bld) [Ratio] 0.0 % /100 WBC [facility] Platelet mean volume (Bld) [Entitic vol] 10.8 fL 9.0 - 12.7 fL [facility] Platelets (Bld) [#/Vol] 271 10*3/uL [facility] WBC (Bld) [#/Vol] 12.39 10*3/uL High [facility] Basophils (Bld) [#/Vol] 0.06 10*3/uL Normal <0.11 [facility] Comment on above: Order Comment: Speci men Type: BLOOD SPECIMEN [facility] Address: [address] [place] [address] Performed By: #### 5 0190-8, 2275-07, #### [facility] CLIA [id number] [facility] [facility] [facility] [place] [address] [place] [facility] Basophils/100 WBC (Bld) 0.5 % Normal [facility] Comment on above: Order Comment: Speci men Type: BLOOD SPECIMEN [facility] Address: [address] [place] [address] Performed By: #### 5 0190-8, 2275-07, 97908-6 #### [facility] CLIA [id number] [address] [place] [address] [place] Differential cell count method Nom (Bld) Auto Normal [facility] ital Comment on above: Order Comment: Speci men Type: BLOOD SPECIMEN [facility] Address: [address] [place] [address] Performed By: #### 5 0190-8, 2275-4, #### [facility] CLIA [id number] [place] [address] [place] Eosinophils (Bld) [#/Vol] 10*3/uL Normal <0.46 [facility] Comment on above: Order Comment: Speci men Type: BLOOD SPECIMEN [facility] Address: [address] [place] [address] Performed By: #### 5 0190-8, 2275-07, #### [facility] CLIA [id number] [address] [place] [address] [place] Eosinophils/100 WBC (Bld) 0.1 % Normal [facility] Comment on above: Order Comment: Speci men Type: BLOOD SPECIMEN [facility] Address: [address] [place] [address] Performed By: #### 5 0190-8, 2275-07, #### [facility] CLIA [id number] [place] [address] [place] Erythrocyte distribution width (RBC) [Ratio] 12.5 % Normal 11.5-15.0 [facility] Comment on above: Order Comment: Speci men Type: BLOOD SPECIMEN [facility] Address: [address] [place] [address] Performed By: #### 5 0190-8, 2275-07, #### [facility] CLIA [id number] [address] [place] [address] [place] Hematocrit (Bld) [Volume fraction] 46.1 % High 36.0-46.0 [facility] Comment on above: Order Comment: Speci men Type: BLOOD SPECIMEN [facility] Address: [address] [place] [address] Performed By: #### 5 0190-8, 2275-, 27380-1 #### [facility] CLIA [id number] [place] [address] [place] Hemoglobin (Bld) [Mass/Vol] 15.5 g/dL Normal 11.5-15.5 [facility] Comment on above: Order Comment: Speci men Type: BLOOD SPECIMEN [facility] Address: [address] [place] [address] Performed By: #### 5 0190-8, 2275-07, #### [facility] CLIA [id number] [address] [place] [address] [place] Immature granulocytes (Bld) [#/Vol] 0.33 10*3/uL High <0.10 [facility] Comment on above: Order Comment: Speci men Type: BLOOD SPECIMEN [facility] Address: [address] [place] [address] Performed By: #### 5 0190-8, 2275-07, 67394-9 #### [facility] CLIA [id number] [address] [place] [address] [place] Immature granulocytes/100 WBC (Bld) 2.7 % Normal [facility] Comment on above: Order Comment: Speci men Type: BLOOD SPECIMEN [facility] Address: [address] [place] [address] Performed By: #### 5 0190-8, 2275-07, 64265-0 #### [facility] CLIA [id number] [address] [place] [address] [place] Lymphocytes (Bld) [#/Vol] 2.80 10*3/uL Normal 1.00-4.00 [facility] Comment on above: Order Comment: Speci men Type: BLOOD SPECIMEN [facility] Address: [address] [place] [address] Performed By: #### 5 0190-8, 2275-07, #### [facility] CLIA [id number] [address] [place] [address] [place] Lymphocytes/100 WBC (Bld) 22.6 % Normal [facility] Comment on above: Order Comment: Speci men Type: BLOOD SPECIMEN [facility] Address: [address] [place] [address] Performed By: #### 5 0190-8, 2275-07, #### [facility] CLIA [id number] [place] [address] [place] MCH (RBC) [Entitic mass] 32.0 pg Normal 26.0-34.0 [facility] Comment on above: Order Comment: Speci men Type: BLOOD SPECIMEN [facility] Address: [address] [place] [address] Performed By: #### 5 0190-8, 2275-07, #### [facility] CLIA [id number] [place] [address] [place] MCHC (RBC) [Mass/Vol] 33.6 g/dL Normal 30.5-36.0 [facility] Comment on above: Order Comment: Speci men Type: BLOOD SPECIMEN [facility] Address: [address] [place] [address] Performed By: #### 5 0190-8, 2275-07, #### [facility] CLIA [id number] [address] [place] [address] [place] MCV (RBC) [Entitic vol] 95.1 fL Normal 80.0-100.0 [facility] Comment on above: Order Comment: Speci men Type: BLOOD SPECIMEN [facility] Address: [address] [place] [address] Performed By: #### 5 0190-8, 2275-07, #### [facility] CLIA [id number] [address] [place], [place] [address], [place] [address] [place] Monocytes (Bld) [#/Vol] 0.41 10*3/uL Normal <0.87 [facility] Comment on above: Order Comment: Speci men Type: BLOOD SPECIMEN [facility] Address: [address] [place] [address] Performed By: #### 5 0190-8, 2275-4, #### [facility] CLIA [id number] [address] [place] [address] [place] Monocytes/100 WBC (Bld) 3.3 % Normal [facility] Comment on above: Order Comment: Speci men Type: BLOOD SPECIMEN [facility] Address: [address] [place] [address] Performed By: #### 5 0190-8, 2275-07, #### [facility] CLIA [id number] [address] [place] [address] [place] Neutrophils (Bld) [#/Vol] 8.78 10*3/uL High 1.45-7.50 [facility] Comment on above: Order Comment: Speci men Type: BLOOD SPECIMEN [facility] Address: [address] [place] [address] Performed By: #### 5 0190-8, 2275-07, #### [facility] CLIA [id number] [address] [place] [address] [place] Neutrophils/100 WBC (Bld) 70.8 % Normal [facility] Comment on above: Order Comment: Speci men Type: BLOOD SPECIMEN [facility] Address: [address] [place] [address] Performed By: #### 5 0190-8, 2275-07, #### [facility] CLIA [id number] [address] [facility] [place] [address] [place] Nucleated RBC (Bld) [#/Vol] 10*3/uL Normal <0.01 [facility] Comment on above: Order Comment: Speci men Type: BLOOD SPECIMEN [facility] Address: [address] [place] [id number] Performed By: #### 5 0190-8, 2275-4, 00586-2 #### [facility] CLIA [id number] [address] [place] [address] [place] Nucleated RBC/100 WBC (Bld) [Ratio] 0.0 /100 WBC Normal [facility] Comment on above: Order Comment: Speci men Type: BLOOD SPECIMEN [facility] Address: [address] [place] [address] Performed By: #### 5 0190-8, 4, #### [facility] CLIA [id number] [place] [address] [place] Platelet mean volume (Bld) [Entitic vol] 10.8 fL Normal 9.0-12.7 [facility] Comment on above: Order Comment: Speci men Type: BLOOD SPECIMEN [facility] Address: [address] [place], [place] [address] Performed By: #### 5 0190-8, 2275-, #### [facility] CLIA [id number] [address] [place] [address] [place] Platelets (Bld) [#/Vol] 271 10*3/uL Normal 150-400 [facility] Comment on above: Order Comment: Speci men Type: BLOOD SPECIMEN [facility] Address: [address] [place] [address] Performed By: #### 5 0190-8, 2275-07, 43514-2 #### [facility] CLIA [id number] [address] [place] [address] [place] RBC (Bld) [#/Vol] 4.85 10*6/uL Normal 3.90-5.20 [facility] Comment on above: Order Comment: Speci men Type: BLOOD SPECIMEN [facility] Address: [address] [place] [address] Performed By: #### 5 0190-8, 2276-4, 70102-9 #### [facility] CLIA [id number] [address] [place] [address] [place] [facility] WBC (Bld) [#/Vol] 12.39 10*3/uL High 3.70-11.00 [facility] Comment on above: Order Comment: Speci men Type: BLOOD SPECIMEN [facility] Address: [address] [facility] [place] [address] Performed By: #### 5 0190-8, 2276-4, 58838-1 #### [facility] CLIA [id number] [place] CCF CBC W AUTO DIFF BLDon [facility] BASOPHILS # BLD AUTO 0.06 [facility] DIFFERENTIAL METHOD BLD Auto [facility] C[facility] EOSINOPHIL # BLD AUTO <0.03 [facility] LYMPHOCYTES # BLD AUTO 2.8 [facility] MONOCYTES # BLD AUTO 0.41 [facility] NEUTROPHILS # BLD AUTO 8.78 High [facility] C[facility] NRBC # BLD AUTO <0.01 [facility] NRBC/100 WBC BLD-RTO 0 /100 WBC [facility] PLATELET # BLD AUTO 271 [facility] PMV BLD AUTO 10.8 fL 9.0 - 12.7 fL [facility] WBC # BLD AUTO 12.39 High [facility] IMM GRANULOCYTES # BLD AUTO 0.33 High [facility] IMM GRANULOCYTES/LEUK NFR BLD AUTO 2.7 % [facility] MCH (RBC) [Entitic mass] 32 pg 26.0 - 34.0 pg [facility] Specimen Type: BLOOD SPECIMEN [facility] Address: [address] [place] [address] Original Ordering Provider: ILIANA Alexandra 04-26-2024 CNOV Office Visit (GASTNO ) ORION HARPER ([id number]) 1990 F Date Time Provider Department 04/26/24 [...] do not hesitate to send me a [facility] message or call. FARNAZ Mohr Lauren, PA-C [...] she saw Dr. Hylton in 2021 in [facility]. 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 Colonosc (more content not included)... Normal [facility] Office Visit (ORMDNA ) MEREDITHORION A ([id number]) 1990 F Date Time Provider Department 04/26/24 [...] and plan (more content not included)... Normal [facility] Ceruloplasmin SerPl-mCncon 0 04-26-2024 Ceruloplasmin [Mass/Vol] 27 mg/dL Normal 16-45 [facility] Comment on above: Order Comment: Speci men Type: BLOOD SPECIMEN [facility] Address: [address] [place] [address] Performed By: #### 2 064-4, 1825-9 #### [facility] CLIA [id number] [address] [place], [place] [address] [place] [address] [place] Comprehensive metabolic 2000 panelon 04-26-2024 Albumin [Mass/Vol] 4.7 g/dL 3.9 - 4.9 g/dL [facility] ALP [Catalytic activity/Vol] 144 U/L High 34 - 123 U/L [facility] ALT [Catalytic activity/Vol] 192 U/L High 7 - 38 U/L [facility] Anion gap [Moles/Vol] 13 mmol/L 8 - 15 mmol/L [facility] AST [Catalytic activity/Vol] 99 U/L High 13 - 35 U/L [facility] Bilirubin [Mass/Vol] 0.3 mg/dL 0.2 - 1 .3 mg/dL [facility] Calcium [Mass/Vol] 9.2 mg/dL 8.5 - 10. 2 mg/dL [facility] Chloride [Moles/Vol] 100 mmol/L 98 - 10 7 mmol/L [facility] CO2 [Moles/Vol] 25 mmol/L 22 - 30 mmol/L [facility] Creatinine [Mass/Vol] 0.58 mg/dL 0.58 - 0.96 mg/dL [facility] GFR/1.73 sq M.predicted among non-blacks MDRD (S/P/Bld) [Vol rate/Area] 121 mL/min/{1.73_m2} - PINF [facility] Comment on above: Estimated Glomerular Filtration [...] [Mass/Vol] 95 mg/dL 74 - 99 mg/dL [facility] Comment on above: The [place] [employer] (ADA) provides guidance for [...] Standards of Medical Care in Diabetes 2016, [place] [employer]. Diabetes Care. 2016.39(Suppl 1). Interpretation and review of laboratory results Abnormal [facility] Potassium [Moles/Vol] 4.0 mmol/L 3.7 - 5.1 mmol/L [facility] Protein [Mass/Vol] 8.0 g/dL 6.3 - 8.0 g/dL [facility] Sodium [Moles/Vol] 138 mmol/L 136 - 144 mmol/L [facility] Urea nitrogen [Mass/Vol] 12 mg/dL 7 - 21 mg/dL [facility] Albumin [Mass/Vol] 4.7 g/dL Normal 3.9-4.9 [facility] Comment on above: Order Comment: Rl basilio Type: BLOOD SPECIMEN [facility] Address: [address] [place] [address] Performed By: #### 5 0190-8, 2275-4, 44896-0 #### [facility] CLIA [id number] [place] [address] [place] ALP [Catalytic activity/Vol] 144 U/L High 34-123 [facility] Comment on above: Order Comment: Rl basilio Type: BLOOD SPECIMEN [facility] Facility: [facility] Address: [address] [place] [address] Performed By: #### 5 0190-8, 2275-4, 10396-0 #### [facility] CLIA [id number] [address] [place] [address] [place] ALT [Catalytic activity/Vol] 192 U/L High 7-38 [facility] Comment on above: Order Comment: Dionicioi chetna Type: BLOOD SPECIMEN [facility] Facility: [facility] Address: [address] [place] [address] Performed By: #### 5 0190-8, 4, 38731-5 #### [facility] CLIA [id number] [address] [place] [address] [place] Anion gap [Moles/Vol] 13 mmol/L Normal 8-15 [facility] Comment on above: Order Comment: Speci men Type: BLOOD SPECIMEN [facility]ing Facility: [facility] Address: [address] [place] [address] Performed By: #### 5 0190-8, 2275-07, #### [facility] CLIA [id number] [place] [address] [place] AST [Catalytic activity/Vol] 99 U/L High 13-35 [facility] Comment on above: Order Comment: Speci men Type: BLOOD SPECIMEN Ordering Facility: [facility] Address: [address] [place] [address] Performed By: #### 5 0190-8, 2275-07, #### [facility] CLIA [id number] [address] [place] [address] [place] Bilirubin [Mass/Vol] 0.3 mg/dL Normal 0.2-1.3 [facility] Comment on above: Order Comment: Speci men Type: BLOOD SPECIMEN Ordering Facility: [facility] Address: [address] [place] [address] Performed By: #### 5 0190-8, 2275-07, #### [facility] CLIA [id number] [place] [address] [place] Calcium [Mass/Vol] 9.2 mg/dL Normal 8.5-10.2 [facility] Comment on above: Order Comment: Speci men Type: BLOOD SPECIMEN Ordering Facility: [facility] Address: [address] [place] [address] Performed By: #### 5 0190-8, 2275-07, #### [facility] CLIA [id number] [address] [place] [address] [place] Chloride [Moles/Vol] 100 mmol/L Normal 98-107 [facility] Comment on above: Order Comment: Speci men Type: BLOOD SPECIMEN Ordering Facility: [facility] Address: [address] [place], [place] [address] Performed By: #### 5 0190-8, 4, #### [facility] CLIA [id number] [facility] [place] [address] [place] CO2 [Moles/Vol] 25 mmol/L Normal 22-30 [facility] Comment on above: Order Comment: Speci men Type: BLOOD SPECIMEN Ordering Facility: [facility] Address: [address] [place] [address] Performed By: #### 5 0190-8, 2275-07, #### [facility] CLIA [id number] [facility] [place] [address] [place] Creatinine [Mass/Vol] 0.58 mg/dL Normal 0.58-0.96 [facility] Comment on above: Order Comment: Speci men Type: BLOOD SPECIMEN Ordering Facility: [facility] Address: [address] [place] [address] Performed By: #### 5 0190-8, 2275-07, #### [facility] CLIA [id number] [facility] [place] [address] [place] Creatinine and Glomerular filtration rate.predicted panel (S/P/Bld) 121 mL/min/1.73m??? Normal >=60 [facility] Comment on above: Order Comment: Speci men Type: BLOOD SPECIMEN Ordering Facility: [facility] Address: [address] [place] [address] Result Comment: Chely mated Glomerular Filtration Rate [...] GFR. Performed By: #### 5 0190-8, 2275-, #### [facility] CLIA [id number] [facility] [place] [address] [place] Glucose [Mass/Vol] 95 mg/dL Normal 74-99 [facility] Comment on above: Order Comment: Rl basilio Type: BLOOD SPECIMEN Ordering Facility: [facility] Address: [address] [place] [address] Result Comment: The [place] [employer] (ADA) provides guidance for cutoff [...] Standards of Medical Care in Diabetes 2016, [place] [employer]. Diabetes Care. 2016.39(Suppl 1). Performed By: #### 5 0190-8, 6-4, 07386-0 #### [facility] CLIA [id number] [address] [place] [address] [place] Potassium [Moles/Vol] 4.0 mmol/L Normal 3.7-5.1 [facility] Comment on above: Order Comment: Rl basilio Type: BLOOD SPECIMEN Ordering Facility: [facility] Address: [address] [place] [address] Performed By: #### 5 0190-8, 2275-4, 48733-9 #### [facility] CLIA [id number] [address] [place] [address] [place] Protein [Mass/Vol] 8.0 g/dL Normal 6.3-8.0 [facility] Comment on above: Order Comment: Rl basilio Type: BLOOD SPECIMEN Ordering Facility: [facility] Address: [address] [place] [address] Performed By: #### 5 0190-8, 2275-4, 18214-9 #### [facility] CLIA [id number] [address] [place] [address] [place] Sodium [Moles/Vol] 138 mmol/L Normal 136-144 [facility] Comment on above: Order Comment: Speci men Type: BLOOD SPECIMEN Ordering Facility: [facility] Address: [address] [place] [address] Performed By: #### 5 0190-8, 2275-07, #### [facility] CLIA [id number] [address] [place] [address] [place] [facility] Urea nitrogen [Mass/Vol] 12 mg/dL Normal 7-21 [facility] Comment on above: Order Comment: Speci men Type: BLOOD SPECIMEN Ordering Facility: [facility] Address: [address] [place] [address] Performed By: #### 5 0190-8, 2275-07, #### [facility] CLIA [id number] [address] [place] [address] [place] FERRITINon 04-26-2024 Ferritin [Mass/Vol] 420.9 ng/mL High 14.7 - 2 05.1 ng/mL [facility] Ferritin SerPl-mCncon 2024 Ferritin [Mass/Vol] 420.9 ng/mL High 14.7-205.1 [facility] Comment on above: Order Comment: Speci men Type: BLOOD SPECIMEN Ordering Facility: [facility] Address: [address] [place] [address] Performed By: #### 5 0190-8, 2275-07, #### [facility] CLIA [id number] [address] [facility] [place] [address] [place] Ferritin [Mass/Vol]on 2024 Interpretation and review of laboratory results Abnormal [facility] HAV IgM Ser Qlon 04-26-2024 HAV IgM Ql (S) Negative Normal Negative [facility] Comment on above: Order Comment: Speci men Type: BLOOD SPECIMEN Ordering Facility: [facility] Address: [address] [place] [address] Result Comment: No e vidence of recent infection with Hepatitis A virus. Performed By: #### 5 0190-8, 2275-07, #### [facility] CLIA [id number] [address] [place] [address] [place] HBV core IgM Ser Qlon 2024 HBV core IgM Ql (S) Negative Normal Negative [facility] Comment on above: Order Comment: Rl basilio Type: BLOOD SPECIMEN Ordering Facility: [facility] Address: [address] [place] [address] Result Comment: No e vidence of recent infection with Hepatitis B virus. Should recent infection be suspected, repeat testing may be considered 3-4 weeks after this draw. Performed By: #### 5 195-3, 67538-9, 87853-4 #### [facility] CLIA [id number] [address] [place] [address] [place] HBV surface Ag Ser Qlon HBV surface Ag Ql (S) Negative Normal Negative [facility] Comment on above: Order Comment: Rl basilio Type: BLOOD SPECIMEN Ordering Facility: [facility] Address: [address] [place] [address] Performed By: #### 5 0190-8, 2276-4, 16676-5 #### [facility] CLIA [id number] [address] [place], [place] [address] [place] HCV Ab Ser Qlon 04-26-2024 HCV Ab Ql (S) Negative Normal Negative [facility] Comment on above: Order Comment: Rl basilio Type: BLOOD SPECIMEN Ordering Facility: [facility] Address: [address] [place] [address] Result Comment: The result suggests no evidence of active infection with Hepatitis C virus. Should recent infection be suspected, repeat testing may be considered 4-6 weeks after this draw. Performed By: #### 1 6128-1 #### [facility] CLIA [id number] [address] [place] [address] [place] Iron and Iron binding capaci ty panelon 04-26-2024 Interpretation and review of laboratory results Normal [facility] Iron [Mass/Vol] 105 ug/dL 41 - 186 ug/dL [facility] Iron binding capacity [Mass/Vol] 340 ug/dL 232 - 386 ug/dL [facility] Iron/TIBC [Molar ratio] 30.9 % 15.0 - 57.0 % [facility] Iron [Mass/Vol] 105 ug/dL Normal 41-186 [facility] Comment on above: Order Comment: Speci men Type: BLOOD SPECIMEN Ordering Facility: [facility] Address: [address] [place] [address] Performed By: #### 5 0190-8, 6-4, 29227-2 #### [facility] CLIA [id number] [address] [place], [place] [id number] [place] [address] Iron binding capacity [Mass/Vol] 340 ug/dL Normal 232-386 [facility] Comment on above: Order Comment: Speci men Type: BLOOD SPECIMEN Ordering Facility: [facility] Address: [address] [place] [address] Performed By: #### 5 0190-8, 6-4, 68194-2 #### [facility] CLIA [id number] [address] [place], [place] [address] [place] [address] Iron/TIBC [Molar ratio] 30.9 % Normal 15.0-57.0 [facility] Comment on above: Order Comment: Speci men Type: BLOOD SPECIMEN Ordering Facility: [facility] Address: [address] [place] [address] Performed By: #### 5 0190-8, 6-4, 86544-6 #### [facility] CLIA [id number] [address] [place] [address] [facility] - Hematology and Cell countson 04-26-2024 Basophils/100 WBC (Bld) 0.5 % [facility] Eosinophils/100 WBC (Bld) 0.1 % [facility] Erythrocyte distribution width (RBC) [Ratio] 12.5 % 11.5 - 15.0 % [facility] Hematocrit (Bld) [Volume fraction] 46.1 % High 36.0 - 46.0 % [facility] Hemoglobin (Bld) [Mass/Vol] 15.5 g/dL 11.5 - 15.5 g/dL [facility] Lymphocytes/100 WBC (Bld) 22.6 % [facility] MCHC (RBC) [Mass/Vol] 33.6 g/dL 30.5 - 36.0 g/dL [facility] MCV (RBC) [Entitic vol] 95.1 fL 80.0 - 100.0 fL [facility] Monocytes/100 WBC (Bld) 3.3 % [facility] Neutrophils/100 WBC (Bld) 70.8 % [facility] RBC (Bld) [#/Vol] 4.85 10*6/uL 3.90 - 5.2 0 m/uL [facility] Mitochondria Ab IF Ql (S)on 04-26-2024 Mitochondria M2 Ab IA Qn (S) 2.8 Units Normal <=20.0 [facility] Comment on above: Order Comment: Specmaribel basilio Type: BLOOD SPECIMEN Ordering Facility: [facility] Address: [address] [place] [address] Performed By: #### 5 0190-8, 2276-4, 97774-9 #### [facility] CLIA [id number] [address] [place] [address] [place] [facility] Mitochondria M2 Ab Ql (S) Negative Normal Negative [facility] Comment on above: Order Comment: Specmaribel basilio Type: BLOOD SPECIMEN Ordering Facility: [facility] Address: [address] [place] [address] Result Comment: Anti -mitochondrial antibody test is used as an aid in diagnosis of primary biliary cholangitis. Clinical correlation is required. Performed By: #### 5 0190-8, 2276-4, 20377-3 #### [facility] CLIA [id number] [address] [place] [address] [place] No Panel Informationon 04-26 [facility] Interpretation and review of laboratory results Abnormal [facility] PT panel Coag (PPP)on 2024 INR Coag (PPP) [Relative time] 0.9 {INR} 0.9 - 1.3 [facility] Comment on above: Vitamin K Antagonist (VKA) Therapeutic Range: INR 2 to 3 (Target INR of 2.5) Note: For patients treated with VKA drugs, such as warfarin, the [place] [employer] 2012 Guideline recommends [...] Chest 2012, 141:7S-47S Lit SALVADOR et óscar. [facility] 2017, 70: 252-289 Interpretation and review of laboratory results Normal [facility] PT Coag (PPP) [Time] 10.6 s [facility] INR Coag (PPP) [Relative time] 0.9 {INR} Normal 0.9-1.3 [facility] Comment on above: Order Comment: Speci men Type: BLOOD SPECIMEN Ordering Facility: [facility] Address: [address] [place] [address] Result Comment: Maya min K Antagonist (VKA) Therapeutic Range: INR 2 to 3 (Target INR of 2.5) Note: For patients treated with VKA drugs, such as warfarin, the [place] [employer] 2012 Guideline recommends [...] Rodriguez. Chest 2012, 141:7S-47S Lit SALVADOR et al. [facility] 2017, 70: 252-289 Performed By: #### 3 4528-0 #### [facility] CLIA [id number] [address] [place], [place] [address] [place] [address] [place] PT Coag (PPP) [Time] 10.6 s Normal 9.7-13.0 [facility] Comment on above: Order Comment: Speci men Type: BLOOD SPECIMEN Ordering Facility: [facility] Address: [address] [place] [address] Performed By: #### 3 4528-0 #### [facility] CLIA [id number] [address] [place] [address] [facility] Smooth muscle Ab Ql (S)on ACTIN SMOOTH MUSCLE IGG QUALITATIVE Negative Normal Negative [facility] Comment on above: Order Comment: Speci men Type: BLOOD SPECIMEN Ordering Facility: [facility] Address: [address] [place] [address] Performed By: #### 5 0190-8, 2276-4, 52637-9 #### [facility] CLIA [id number] [place] ACTIN SMOOTH MUSCLE IGG QUANTITATIVE 5 Units Normal <20 [facility] Comment on above: Order Comment: Speci men Type: BLOOD SPECIMEN Ordering Facility: [facility] Address: [address] [place] [address] Performed By: #### 5 0190-8, 6-4, 85345-3 #### [facility] CLIA [id number] [address] [place] [address] [facility] ECHOon 04-09-2024 Echocardiography Echocardiography Report: Transthoracic Echo [facility] Date of service: 04/09/2024 3:28:57 PM Ordering physician: SOLO MORA Indication: Syncope Technologist: Josephine West [facility] Interpreting physician: Sheri Ac MD [...] * * Final * * * CC Dynamic Signal Medical Image : [id number] [facility] 04-05-2024 [facility] Telephone (CARDMN) ORION HARPER ([id number]) 1990 F Date Time Provider Department 04/05/24 SOLO MORA CARDMN During your visit today, we recorded the following information about you: Criss Mccrary 04/05/2024 1:02 PM Signed Outside ep I have a copy @ my desk Criss Velez 04/09/2024 11:49 AM Signed April 09, 2024 Patient Contact Number: [phone] Patient last seen within the last year: Yes 12/15 Reason For Call: Test Results - 12/2023 Physician: Dr. Mora Patient was informed that non-urgent calls may be returned within the next three business days. Yes Joy Dahl RN 04/09/2024 2:14 PM Signed Cardiac clearance and office noted faxed to [facility]. In regards to Zio monitor. Dr Mora [...] Medical Records [3576] Cmt: Cardio Clearance [facility] Results [95] Cmt: Zio Prescriptions as of [...] Status:Closed by CRISS MCCRARY on 04/05/[address] [facility] HEMOGLOBIN A1con 04-04-2024 HEMOGLOBIN A1c 5.5 [...] diagnosis of diabetes in children. According to [place] [employer] (ADA) guidelines, hemoglobin A1c <7.0% represents optimal control in non- diabetic patients. Different metrics may apply to specific patient populations. Standards of Medical Care in Diabetes(ADA). Performed By: #### 4 96, 733 #### [facility] [address], [address] [place] [address] Resident Manager: Tim Dotson MD POTASSIUMon 04-04-2024 Potassium [Moles/Vol] 3.7 mmol/L Normal 3.5-5.[address] [facility] Comment on above: Order Comment: FASTI NG:YES FASTING: YES Performed By: #### 4 96, 733 #### [facility] [address], [address] [place] [address] Resident Manager: Tim Dotson MD [facility] 04-02-2024 CNPN Telephone (CARDMN) ORION HARPER ([id number]) 1990 F Date Time Provider Department 04/02/24 SOLO MORAMN During your visit today, we recorded the following information about you: Criss Mccrary 04/02/2024 3:53 PM Signed This 'Ankle Surgery Clearance' was faxed over to Dr. Giovani Hagen (PCP) @ [phone] for signing. I spoke with the patient. [...] by: Analia Umanzor, JW - Fully Assessed Reason for Visit: Received Outside Medical Records [3576] Cmt: [facility] Prescriptions as of 04/02/2024 - amphetamine-dextroamp hetamine [...] Status:Closed by CRISS MCCRARY on 04/02/[address] [facility] IGP,APTIMA HPV,AGE GDLNon AGE GDLN ACOG TESTING Note . [facility] Comment on above: TESTS RESULT FLAG UN ITS REF RANGE LAB Clinician Provided Cytology Information Source.............Vagina No. of containers..01 ThinPrep Vial Age Algo ACOG Starla... FLAG LEGEND: L-Low Normal,H-High Normal,LL-Alert Low,HH-Alert High <-Panic Low,>-Panic High,A-Abnormal,AA-Critical Abnormal Performed at: 01 =[address] [place] [address] Zoraida Hawkins MD, HPV APTIMA Negative Negative [facility] Comment on above: This nucleic acid am plification test detects fourteen high- risk HPV types (16,18,31,33,35,39,45,51,52,56,58,59,66,68) without differentiation. Performed at: =[address] [id number] Distribution Lead: Zoraida Hawkins MD, Phone: [phone] Performed at: [address] [id number] Distribution Lead: Zoraida Hawkins MD, Phone: [phone] IGP, APTIMA HPV, RFX 16/18,45 Note . [facility] Comment on above: TESTS RESULT FLAG UN ITS REF RANGE LAB DIAGNOSIS: 02 NEGATIVE FOR INTRAEPITHELIAL LESION OR MALIGNANCY. Specimen adequacy: 02 Satisfactory for evaluation. Performed by: 02 Zehra Brush, Commercial Accountant (ASC) . 02 Note: Note 02 The Pap [...] <-Panic Low,>-Panic High,A-Abnormal,AA-Critical Abnormal Performed at: 02 [facility] [address] [place] [address] Zoraida Hawkins MD, SPATULA-ALONE [facility] Ambulatory Visit Summaryon 0 12-28-2023 Ambulatory Visit Summary Ambulatory Visit Summary MEREDITH ORION A :1990 Visit Date:12/28/2023 Ambulatory Visit Instructions Your [...] FRIEDMAN, Madhuri Kendrick Where: [facility] [address] [address]- Medications What How Much When Instructions Unchanged [...] been having recurrent UTI's. She does [facility] [employer] thru video zoom and gets abx without [...] # 20 cap(s), Refills(s) 2, [id number], 158, cm, 12/28/23 15:24:00 EDT, Height/Length Dosing, 87, kg, 12/28/23 15:24:00 EDT, Weight Dosing E&M of Est. Patient Moderate 30-39 Min 41749 2. Kidney stones (N20.0: Calculus of kidney) S/p R ESWL. KUB 06/29/22 at [facility] - negative Metabolic workup 07/08/22 - slightly elevated Na (149), low output volume (1000 mL) KUB 11/16/23 - negative no recent flank pain, gross hematuria, stone passage. continue stone prevention diet repeat imaging 1 yr Ordered: cephalexin, See Instructions, 1 cap po after intercourse to prevent UTI, # 20 cap(s), Refills(s) 2, [id number], 158, cm, 12/28/23 15:24:00 EDT, Height/Length Dosing, 87, kg, 12/28/23 15:24:00 EDT, Weight Dosing E&M of Est. Patient Moderate 30-39 Min 18699 Urnls Dip Stick Auto w/o Microscopy POC 79515 3. Smoker (F17.200: Nicotine dependence, unspecified, uncomplicated) cessation encouraged Ordered: cephalexin, See Instructions, 1 cap po after intercourse to prevent UTI, # 20 cap(s), Refills(s) 2, [id number], 158, cm, 12/28/23 15:24:00 EDT, Height/Length Dosing, 87, kg, 12/28/23 15:24:00 EDT, Weight Dosing E&M of Est. Patient Moderate 30-39 Min 81190 Follow-up With When Contact Information BHAVESH DEJESUS PA-C, URL Within 1 year Additional Instructions: Patient Education Kidney Stones, Ghoe-my-Esne Problem List/Past Medical History Ongoing Kidney stones [...] Mother. Immunizations Vaccine Date Status Comments SARSCoV2 mRNA(emswxfjhw-zkce-y farooq) vac 11/02/2021 Recorded SARS-CoV-2 (COVID-19) mRNA BNT-162b2 [...] vaccine, inactiva (more content not included)... Normal [facility] Comment on above: Result Comment: Elec tronically Signed By: BHAVESH DEJESUS PA-C\Date and Time Signed: 12/28/23 16:01 EDT CNOVon 12-19-2023 CNOV Office Visit (CARDMN ) MEREDITHORION Eleuterio ([id number]) 1990 F Date Time Provider Department 12/19/23 2:45 PM SOLO MORA CARDMN During your visit today, we recorded the following information about you: Pulse Blood pressure Weight Height 94/minute 127/91 85.3 kg 1.575 m Solo Mora MD 12/28/2023 2:49 AM Signed [facility]na Hooker Department of Cardiovascular Medicine SECTION OF CARDIAC PACING and ELECTROPHYSIOLOGY OUTPATIENT VISIT DATE December 19, 2023 OUTPATIENT VISIT TYPE NEW PRIMARY CARE PHYSICIAN: Giovani Hagen MD [address] [place] [address] CHIEF COMPLAINT: Syncope, cardiac evaluation for family [...] had any workup done including Stress Echo, equipment monitor phototypesetting or 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 Reports symptoms of palpitations [...] per (more content not included)... Normal [facility] ECG COMPLETEon 12-19-2023 ECG COMPLETE Ventricular Rate : 8 8 BPM Atrial Rate : 88 BPM P-R Interval : 148 ms QRS Duration : 78 ms Q-T Interval : 380 ms QTC Calculation(Bazett) : 459 ms Calculated P [place] : 62 degrees Calculated R [place] : 55 degrees Calculated T [place] : 38 degrees NORMAL SINUS RHYTHM NORMAL ECG Confirmed by MD NIURKA, HEBA ([id number]) on 12/30/2023 6:45:12 PM NAME : ORION HARPER PID : [id number] : 1990 Gender : Female Race : Other ORD : [id number] Procedure Date : Dec 19 2023 13:51:58 Edit Date : Dec 30 2023 18:45:15 Diagnosis: NORMAL SINUS RHYTHM NORMAL ECG Confirmed by MD BAH HEBA ([id number]) on 12/30/2023 6:45:12 PM Test Reason : Location : 314 : J14 J1-4 Overread By : MD BAH HEBA Edited By : MD BAH HEBA Referred By : , Acquired by : CHELSEY JOSEPH [facility] ALL CBC WITH AUTO DIFFon BASOPHILS ABSOLUTE AUTO 0.0 [facility] Basophils/100 WBC (Bld) 0.4 % 0.2 - 2.0 % [facility] Eosinophils/100 WBC (Bld) 2.8 % 0.9 - 7.0 % [facility] Erythrocyte distribution width (RBC) [Ratio] 12.4 % 11.0 - 15.0 % [facility] Hematocrit (Bld) [Volume fraction] 41.9 % 36.0 - 48.0 % [facility] Hemoglobin (Bld) [Mass/Vol] 14.2 g/dL 12.0 - 16.0 g/dL [facility] IMMATURE GRANULOCYTES ABS AUTO 0.03 [facility] Immature granulocytes/100 WBC (Bld) 0.4 % 0.0 - 0.5 % [facility] LYMPHOCYTES ABSOLUTE AUTO 2.8 [facility] Lymphocytes/100 WBC (Bld) 35.6 % 20.5 - 60.0 % [facility] MCH (RBC) [Entitic mass] 32.1 pg 26.7 - 34.0 pg [facility] MCHC (RBC) [Mass/Vol] 33.9 g/dL 29.9 - 35.2 g/dL [facility] MCV (RBC) [Entitic vol] 94.8 fL 81.0 - 99.0 fL [facility] MONOCYTES ABSOLUTE AUTO 0.5 [facility] Monocytes/100 WBC (Bld) 6.0 % 1.7 - 12.0 % [facility] NEUTROPHILS ABSOLUTE AUTO 4.3 [facility] Neutrophils/100 WBC (Bld) 54.8 % 43.0 - 75.0 % [facility] Platelet mean volume (Bld) [Entitic vol] 10.4 fL 9.5 - 13.5 fL [facility] TBH EO # 0.2 [facility] PLT [address] [facility] RBC 4.42 [facility] WBC 7.8 [facility] CNPNon 11-02-2023 CNPN Telephone (CARDMN) ORION HARPER ([id number]) 1990 F Date Time Provider Department 11/02/23 CARLOZ CHRISFLAQUITO CARDMN During your visit today, we recorded [...] by CRISS MCCRARY on 11/02/[address] [facility] Extra Lavender Tubeon 2022 Extra Lavender Tube Normal [facility] Comment on above: Performed By: #### X LAV, LIVP, LIP #### [facility] [address] [place] [address] Distribution Lead: Ronald Pearce MD Lipaseon 03-24-2023 Lipase [Catalytic activity/Vol] 260 U/L High 13-60 [facility] Comment on above: Performed By: #### X LAV, LIVP, LIP #### [facility] [address] [place] [address] Distribution Lead: Ronald Pearce MD Liver Profileon 03-24-2023 Albumin [Mass/Vol] 3.5 g/dL Normal 3.5-5.2 [facility] Comment on above: Performed By: #### X LAV, LIVP, LIP ####[facility] [address] [place] [address] Lab Director: Ronald Pearce MD Alkaline Phos 321 U/L High 35-104 [facility] Comment on above: Performed By: #### X LAV, LIVP, LIP ####[facility] [address] [place] [address] Lab Director: Ronald Pearce MD ALT [Catalytic activity/Vol] 137 U/L High 5-33 [facility] Comment on above: Performed By: #### X LAV, LIVP, LIP ####[facility] [address] [place] [address] Lab Director: Ronald Pearce MD AST [Catalytic activity/Vol] 60 U/L High <32 [facility] Comment on above: Performed By: #### X LAV, LIVP, LIP ####[facility] [id number] [place] [address] Lab Director: Ronald Pearce MD Bilirubin [Mass/Vol] 1.0 mg/dL Normal 0.3-1.2 [facility] Comment on above: Performed By: #### X LAV, LIVP, LIP ####[facility] [address] [place] [address] Lab Director: Ronald Pearce MD Bilirubin, Indirect 0.4 mg/dL Normal 0.0-1.0 [facility] Comment on above: Performed By: #### X LAV, LIVP, LIP ####[facility] [id number] [address] Lab Director: Ronald Pearce MD Bilirubin.indirect [Mass/Vol] 0.6 mg/dL High <0.3 [facility] Comment on above: Performed By: #### X LAV, LIVP, LIP ####[facility] [id number] [place] [address] Lab Director: Ronald Pearce MD Protein [Mass/Vol] 5.7 g/dL Low 6.4-8.3 [facility] Comment on above: Performed By: #### X LAV, LIVP, LIP ####[facility] [id number] [place] [address] lab Director: Ronald Pearce MD Extra Lavender Tubeon 2022 Extra Lavender Tube Normal [facility] Comment on above: Performed By: #### L IVP, XLAV ####[facility] [address] [place] [address] lab Director: Ronald Pearce MD FL CHOLANGIOGRAM [...] above: Performed By: #### L IVP, XLAV ####[facility] [address] [place] [address] Lab Director: Ronald Perace MD Alkaline Phos 293 U/L High 35-104 [facility] Comment on above: Performed By: #### L IVP, XLAV ####[facility] [address] [address] Lab Director: Ronald Pearce MD ALT [Catalytic activity/Vol] 111 U/L High 5-33 [facility] Comment on above: Performed By: #### L IVP, XLAV ####[facility] [address] [place] [phone] Director: Ronald Pearce MD AST [Catalytic activity/Vol] 43 U/L High <32 [facility] Comment on above: Performed By: #### L IVP, XLAV ####[facility] [address] [place] [phone] Director: Ronald Pearce MD Bilirubin [Mass/Vol] 2.6 mg/dL High 0.3-1.2 [facility] Comment on above: Performed By: #### L IVP, XLAV ####[facility] [address] [place] [phone] Director: Ronald Pearce MD Bilirubin, Indirect 0.8 mg/dL Normal 0.0-1.0 [facility] Comment on above: Performed By: #### L IVP, XLAV ####[facility] [address] [place] [address] Lab Director: Ronald Pearce MD Bilirubin.indirect [Mass/Vol] 1.8 mg/dL High <0.3 [facility] Comment on above: Performed By: #### L IVP, XLAV ####[facility] [address] [place] [address] Lab Director: Ronald Pearce MD Protein [Mass/Vol] 5.7 g/dL Low 6.4-8.3 [facility] Comment on above: Performed By: #### L IVP, XLAV ####[facility] [address] [place] [address] Lab Director: Ronald Pearce MD Surgical Pathology Reporton 03-23-2023 Surgical Pathology Report (NOTE) Path Number: [id number] -- Diagnosis -- A. GALLBLADDER AND CONTENTS, [...] lesions or periductal lymph nodes are identified. Stretching Press Operator sections 1c. tm SM/tb1:03/24/2023 Microscopic Description Microscopic examination performed. Processing Lab: [place] [address] Interpretation Performed at [address] [id number] SURGICAL PATHOLOGY CONSULTATION Patient Name: ORION HARPER [facility] Rec: [id number] [facility] ANATOMIC PATHOLOGY [address] [place] [address]. [place] [id number] Normal [facility] CBC with Diffon 03-22-2023 Abs. Basophil <0.03 Normal 0.00-0.20 [facility] Comment on above: Performed By: #### C DP, LIP, CMPX #### [facility] [address] [place] [address] Distribution Lead: Ronald Pearce MD #### TRIG #### [address] [address] Distribution Lead: lEio Marley MD Abs.Imm.Granulocyte 0.03 k/uL Normal 0.00-0.30 [facility] Comment on above: Performed By: #### C DP, LIP, CMPX #### [facility] [address] [place] [address] Distribution Lead: Ronald Pearce MD #### TRIG #### [address] [phone] Distribution Lead: Elio Marley MD Abs.Neutrophil (Seg) 6.89 k/uL Normal 1.50-8.10 [facility] Comment on above: Performed By: #### C DP, LIP, CMPX #### [facility] [address] [place] [address] Distribution Lead: Ronald Pearce MD #### TRIG #### [address] [id number] Distribution Lead: Eilo Marley MD Basophils/100 WBC (Bld) 0 % Normal 0-2 [facility] Comment on above: Performed By: #### C DP, LIP, CMPX #### [facility] [address] [place] [address] Distribution Lead: Ronald Pearce MD #### TRIG #### [address] [address] Distribution Lead: Elio Marley MD Eosinophils (Bld) [#/Vol] 0.07 10*3/uL Normal 0.00-0.44 [facility] Comment on above: Performed By: #### C DP, LIP, CMPX #### [facility] [address] [place] [address] Distribution Lead: Ronald Pearce MD #### TRIG #### [address] [phone] Distribution Lead: Elio Marley MD Eosinophils/100 WBC (Bld) 1 % Normal 1-4 [facility] Comment on above: Performed By: #### C DP, LIP, CMPX #### [facility] [address] [place] [address] Distribution Lead: Ronald Pearce MD #### TRIG #### [address] [address] Distribution Lead: Elio Marley MD Erythrocyte distribution width (RBC) [Ratio] 12.2 % Normal 11.8-14.4 [facility] Comment on above: Performed By: #### C DP, LIP, CMPX #### [facility] [address] [place] [address] Distribution Lead: Ronald Pearce MD #### TRIG #### [address] [address] Distribution Lead: Elio Marley MD Hematocrit (Bld) [Volume fraction] 36.9 % Normal 36.3-47.1 [facility] Comment on above: Performed By: #### C DP, LIP, CMPX #### [facility] [address] [place] [address] Distribution Lead: Ronald Pearce MD #### TRIG #### [address] [address] Distribution Lead: Elio Marley MD Hemoglobin (Bld) [Mass/Vol] 12.1 g/dL Normal 11.9-15.1 [facility] Comment on above: Performed By: #### C DP, LIP, CMPX #### [facility] [address] [place] [address] Distribution Lead: Ronald Pearce MD #### TRIG #### [address] [address] Distribution Lead: Elio Marley MD Immature granulocytes/100 WBC (Bld) 0 % Normal 0 [facility] Comment on above: Performed By: #### C DP, LIP, CMPX #### [facility] [address] [place] [address] Distribution Lead: Ronald Pearce MD #### TRIG #### [address] [address] Distribution Lead: Elio Marley MD Lymphocytes (Bld) [#/Vol] 1.62 10*3/uL Normal 1.10-3.70 [facility] Comment on above: Performed By: #### C DP, LIP, CMPX #### [facility] [address] [place] [address] Distribution Lead: Ronald Pearce MD #### TRIG #### [address] [address] Distribution Lead: Elio Marley MD Lymphocytes/100 WBC (Bld) 18 % Low 24-43 [facility] Comment on above: Performed By: #### C DP, LIP, CMPX #### [facility] [address] [place] [address] Distribution Lead: Ronald Pearce MD #### TRIG #### [address] [address] Distribution Lead: Elio Marley MD MCH (RBC) [Entitic mass] 32.5 pg Normal 25.2-33.5 [facility] Comment on above: Performed By: #### C DP, LIP, CMPX #### [facility] [address] [place] [address] Distribution Lead: Ronald Pearce MD #### TRIG #### [address] [address] Distribution Lead: Elio Marley MD MCHC (RBC) [Mass/Vol] 32.8 g/dL Normal 28.4-34.8 [facility] Comment on above: Performed By: #### C DP, LIP, CMPX #### [facility] [address] [place] [address] Distribution Lead: Ronald Pearce MD #### TRIG #### [address] [address] Distribution Lead: Elio Marley MD MCV (RBC) [Entitic vol] 99.2 fL Normal 82.6-102.9 [facility] Comment on above: Performed By: #### C DP, LIP, CMPX #### [facility] [address] [place] [address] Distribution Lead: Ronald Pearce MD #### TRIG #### [address] [address] Distribution Lead: Elio Marley MD Monocytes (Bld) [#/Vol] 0.57 10*3/uL Normal 0.10-1.20 [facility] Comment on above: Performed By: #### C DP, LIP, CMPX #### [facility] [address] [place] [address] Distribution Lead: Ronald Pearce MD #### TRIG #### [address] [address] Distribution Lead: Elio Marley MD Monocytes/100 WBC (Bld) 6 % Normal 3-12 [facility] Comment on above: Performed By: #### C DP, LIP, CMPX #### [facility] [address] [place] [address] Distribution Lead: Ronald Pearce MD #### TRIG #### [address] [address] Distribution Lead: Elio Marley MD Neutrophil (Seg) 75 % High 36-65 [facility] Comment on above: Performed By: #### C DP, LIP, CMPX #### [facility] [address] [place] [address] Distribution Lead: Ronald Pearce MD #### TRIG #### [address] [address] Distribution Lead: Elio Marley MD NRBC Automated 0.0 per 100 WBC Normal 0.0 [facility] Comment on above: Performed By: #### C DP, LIP, CMPX #### [facility] [address] [place] [address] Distribution Lead: Ronald Pearce MD #### TRIG #### [address] [address] Distribution Lead: Elio Marley MD Platelet mean volume (Bld) [Entitic vol] 10.7 fL Normal 8.1-13.5 [facility] Comment on above: Performed By: #### C DP, LIP, CMPX #### [facility] [address] [place] [address] Distribution Lead: Ronald Pearce MD #### TRIG #### [address] [address] Distribution Lead: Elio Marley MD Platelets (Bld) [#/Vol] 188 10*3/uL Normal 138-453 [facility] Comment on above: Performed By: #### C DP, LIP, CMPX #### [facility] [address] [place] [address] Distribution Lead: Ronald Pearce MD #### TRIG #### [address] [address] Distribution Lead: Elio Marley MD RBC (Bld) [#/Vol] 3.72 10*6/uL Low 3.95-5.11 [facility] Comment on above: Performed By: #### C DP, LIP, CMPX #### [facility] [address] [place] [address] Distribution Lead: Ronald Pearce MD #### TRIG #### [address] [address] Distribution Lead: Elio Marley MD WBC (Bld) [#/Vol] 9.2 10*3/uL Normal 3.5-11.3 [facility] Comment on above: Performed By: #### C DP, LIP, CMPX #### [facility] [address] [place] [address] Distribution Lead: Ronald Pearce MD #### TRIG #### [address] [address] Distribution Lead: Elio Marley MD Comp Metabolic Pr/rfx MGon 1 05-22-2022 Albumin [Mass/Vol] 3.5 g/dL Normal 3.5-5.2 [facility] Comment on above: Performed By: #### C DP, LIP, CMPX #### [facility] [address] [place] [address] Distribution Lead: Ronald Pearce MD #### TRIG #### [address] [address] Distribution Lead: Elio Marley MD Alkaline Phos 157 U/L High 35-104 [facility] Comment on above: Performed By: #### C DP, LIP, CMPX #### [facility] [address] [place] [address] Distribution Lead: Ronald Pearce MD #### TRIG #### [address] [address] Distribution Lead: Elio Marley MD ALT [Catalytic activity/Vol] 131 U/L High 5-33 [facility] Comment on above: Performed By: #### C DP, LIP, CMPX #### [facility] [address] [place] [address] Distribution Lead: Ronald Pearce MD #### TRIG #### [address] [address] Distribution Lead: Elio Marley MD Anion gap [Moles/Vol] 11 mmol/L Normal 9-17 [facility] Comment on above: Performed By: #### C DP, LIP, CMPX #### [facility] [address] [place] [address] Distribution Lead: Ronald Pearce MD #### TRIG #### [address] [address] Distribution Lead: Elio Marley MD AST [Catalytic activity/Vol] 34 U/L High <32 [facility] Comment on above: Performed By: #### C DP, LIP, CMPX #### [facility] [address] [place] [address] Distribution Lead: Ronald Pearce MD #### TRIG #### [address] [address] Distribution Lead: Elio Marley MD Bilirubin [Mass/Vol] 1.9 mg/dL High 0.3-1.2 [facility] Comment on above: Performed By: #### C DP, LIP, CMPX #### [facility] [address] [place] [address] Distribution Lead: Ronald Pearce MD #### TRIG #### [address] [address] Distribution Lead: Elio Marley MD BUN/CRE Ratio 17 Normal 9-20 [facility] Comment on above: Performed By: #### C DP, LIP, CMPX #### [facility] [address] [place] [address] Distribution Lead: Ronald Pearce MD #### TRIG #### [address] [address] Distribution Lead: Elio Marley MD Calcium [Mass/Vol] 8.1 mg/dL Low 8.6-10.4 [facility] Comment on above: Performed By: #### C DP, LIP, CMPX #### [facility] [address] [place] [address] Distribution Lead: Ronald Pearce MD #### TRIG #### [address] [address] Distribution Lead: Elio Marley MD Chloride [Moles/Vol] 105 mmol/L Normal 98-107 [facility] Comment on above: Performed By: #### C DP, LIP, CMPX #### [facility] [address] [place] [address] Distribution Lead: Ronald Pearce MD #### TRIG #### [address] [address] Distribution Lead: Elio Marley MD CO2 [Moles/Vol] 21 mmol/L Normal 20-31 [facility] Comment on above: Performed By: #### C DP, LIP, CMPX #### [facility] [address] [place] [address] Distribution Lead: Ronald Pearce MD #### TRIG #### [address] [address] Distribution Lead: Elio Marley MD Creatinine [Mass/Vol] 0.6 mg/dL Normal 0.5-0.9 [facility] Comment on above: Performed By: #### C DP, LIP, CMPX #### [facility] [address] [place] [address] Distribution Lead: Ronald Pearce MD #### TRIG #### [address] [address] Distribution Lead: Elio Marley MD GFR/1.73 sq M.predicted among [...] By: #### C DP, LIP, CMPX #### [facility] [address] [place] [address] Distribution Lead: Ronald Pearce MD #### TRIG #### [address] [address] Distribution Lead: Elio Marley MD Glucose [Mass/Vol] 75 mg/dL Normal 70-99 [facility] Comment on above: Performed By: #### C DP, LIP, CMPX #### [facility] [address] [place] [address] Distribution Lead: Ronald Pearce MD #### TRIG #### [address] [address] Distribution Lead: Elio Marley MD Potassium [Moles/Vol] 4.0 mmol/L Normal 3.7-5.3 [facility] Comment on above: Performed By: #### C DP, LIP, CMPX #### [facility] [address] [place] [address] Distribution Lead: Ronald Pearce MD #### TRIG #### [address] [address] Distribution Lead: Elio Marley MD Protein [Mass/Vol] 5.7 g/dL Low 6.4-8.3 [facility] Comment on above: Performed By: #### C DP, LIP, CMPX #### [facility] [address] [place] [address] Distribution Lead: Ronald Pearce MD #### TRIG #### [address] [address] Distribution Lead: Eloi Marley MD Sodium [Moles/Vol] 137 mmol/L Normal 135-144 [facility] Comment on above: Performed By: #### C DP, LIP, CMPX #### [facility] [address] [place] [address] Distribution Lead: Ronald Pearce MD #### TRIG #### [address] [address] Distribution Lead: Elio Marley MD Urea nitrogen [Mass/Vol] 10 mg/dL Normal 6-20 [facility] Comment on above: Performed By: #### C DP, LIP, CMPX #### [facility] [address] [place] [address] Distribution Lead: Ronald Pearce MD #### TRIG #### [place] [address] [place], [place] [id number] Distribution Lead: Elio Marley MD K (Potassium)on 03-22-2023 Potassium [Moles/Vol] 3.8 mmol/L Normal 3.7-5.3 [facility] Comment on above: Performed By: #### K #### [facility] [address] [place] [address] Distribution Lead: Ronald Pearce MD Lipaseon 03-22-2023 Lipase [Catalytic activity/Vol] 198 U/L High 13-60 [facility] Comment on above: Performed By: #### C DP, LIP, CMPX #### [facility] [address] [place], [place] [address] [address] Distribution Lead: Ronald Pearce MD #### TRIG #### [address] [address] Distribution Lead: Elio Marley MD MRI ABDOMEN WO CONTRAST [...] triglyceride, January 2012. Performed By: #### C DP LIP, CMPX #### [facility] [address] [place], [place] [address]23 Distribution Lead: Ronald Pearce MD #### TRIG #### [facility] [address] [place], [place] [phone] Distribution Lead: MD Lincoln Gordillo 03-20-2023 ISABELN Telephone (FVPRAD) ORION HARPER ([id number]) 1990 F Date Time Provider Department 03/20/23 CHARLETTE CAMPUZANO [facility]PRAD During your visit today, we [...] Status:Closed by CHARLETTE CAMPUZANO on 03/20/23 Normal [facility] Ferritin [Mass/volume] in Se rum or PlasmaOrdered By: Erwin Hylton on 10-26-2022 Ferritin [Mass/Vol] 106.5 ng/mL 11.0-306.8 [facility] [place] GASTRIC EMPTYING SOLIDon 09-12-2022 [facility] Stomach Views for gastric emptying solid phase W radionuclide Izabella 09-12-2022 IMPRESSION: EVIDENCE OF DELAYED RATE OF GASTRIC EMPTYING OF SOLID MEAL. ABNORMAL STUDY: 36-50% RETENTION AT 4 HOURS IS CONSISTENT WITH SEVERE GASTROPARESIS. Clinical Project Manager: MINAL Transcribe Date/Time: Sep 12 2022 3:02P Dictated by : LUZ MARINA VÁZQUEZ MD This examination was interpreted and the report reviewed and electronically signed by: LUZ MARINA VÁZQUEZ MD on Sep 12 2022 3:05PM [facility] RAD[facility] * * *Final Report* * * DATE OF EXAM: Sep 12 2022 2:44PM [facility] 0017 - [place] GASTRIC EMPTYING SOLID [...] (rapid emptying is <30% retention at 1hr). [facility] Provider, Iain Bray - 09/12/2022 * * *Final Report* * * DATE OF EXAM: Sep 12 2022 2:44PM [facility] 0017 - [place] GASTRIC EMPTYING SOLID [...] 4 HOURS IS CONSISTENT WITH SEVERE GASTROPARESIS. Clinical Project Manager: PSCB Transcribe Date/Time: Sep 12 2022 3:02P Dictated by : LUZ MARINA VÁZQUEZ MD This examination was interpreted and the report reviewed and electronically signed by: LUZ MARINA VÁZQUEZ MD on Sep 12 2022 3:05PM [facility] Radiology Study observation (narrative) [facility] Stomach Views for gastric emptying solid phase W radionuclide POOrdered By: Ccf Provider on 09-12-2022 [facility] EGD Study observation Narrat napoleon 09-02-2022 [facility] Gastroenterology Gastrointestinal Endoscopy Patient Name: Orion Harper Procedure Date: 08/31/2022 2:51 PM Date of : 1990 Admit Type: Outpatient Age: 31 Room: [place] [address] Gender: Female Note Status: Rn Registry Override Attending MD: Carol Winn MD Procedure: [...] by the physician, the nurse, the machine printer and the refrigerator repair technician in the procedure room at 14:52 [...] and participated during the entire procedure, including non-mccaryt portions, and during the administration and monitoring [...] the gastric (more content not included)... [employer] [facility] SURGICAL PATHOLOGYOrdered By : Padilla Jasmine on 09-01-2022 Case Report Surgical Pathology Report Case: [id number] Authorizing Provider: Carol Winn MD Collected: 08/31/2022 03:04 PM Ordering Location: Ambulatory Surgery Received: 08/31/2022 09:20 PM Pathologist: Padilla Jasmine MD Specimens: A) - SMALL INTESTINE BIOPSY, r/o celiac B) - ANTRUM (STOMACH) BIOPSY, r/o hpylori C) - STOMACH BIOPSY, gastric body r/o hpylori [facility] Work Phone: Diagnosis Comment e4cbwHBnAGUetVJwIWKx N WrmayRpLJLbwXNhE9Plgr joNIsbYS7aNI0lgGlrkJJ waRDuUDZqCiTlh4exs359 cWHio7ukRUOEnimbaVc4r KhsF00jl8M5QslrV31cdD RaLJM8TAEwBIZyoPYkYEQ jHMK6NRXxoQJeJ8ruVWDn JB6oivsmFYqeKWkjVINvx PE4QGDeyFFzC1NgITQgZU wlFPXghcw6HkWbCx6dcCE yeTcyMFxwYXJkXHBsYWlu BTHkRaHeODqhum9wN23wf OVfKHwxbCerOCCbt08mr8 hho6ZmmI87UPY7ZYWoiKw ilTMeMXHedFm4ASK5xFVo SBtmoPjulVT4O1p1ZFvzr HJhZXBpdGhlbGlhbCBseW 0lpJ1wsEXzs7aqQsTAbRL uDPRnyP5wcR1fqdGxgiRg jq04PLOsoDwoHPh0MWQnD WNpZmljOyBkaWZmZXJlbn BmKQobW47zk8yfQIUojXp jbdCvz495eFDixW0lnJIu ZSBsYXRlbnQgIGNlbGlhY iPwuSD7ZWmeWXGzfDI1pH VzaqHaACKcPZWlAn8jbEo tKPHXF9LJUWWcTB9jGUsp OrMofPmrjWUeI3XmtCLaQ R62FMHrwTpgXJtgcuCojV RpbmcgSGVsaWNvYmFjdGV eQFT2rW8psEibUM7beiys y1OaUPKtMmTxN11vtzYpJ YVkZQiqhCvob5Brf0noS4 bnv8G7UCgiui8duMAhmQ= = [facility] Work Phone: FINAL DIAGNOSIS w6kduUCtAZOukLWvSXAx N ZioigHhNQFkmQHvL4Daxr yrATjgMA5sTE0swRfiaAJ bfSDiJHCiJmFkj7rdm736 gOKln5rkOSSUoboqtXo3r RphP02tk8G5QutwT40ohM GfTBC3QOLqIOUldMMjHSF vDMV0LAAboHIiE4mdPTEo LT7mqcomKFmwKWvuYAXvi LI5XOBdoMNaU4SiASOdQU zcTCForqn8HfMkXc9ogUB yeTcyMFxwYXJkXHBsYWlu SZFbSeAgYA1hLYLwHMrnU GludGVzdGluZSwgYmlvcH K7IztooQ3pWW2PiGNqtRC whhXqh7HtmdMuDJ14U76g AFV5zLKaVB6uol4xpMD2r Npkv8YjSNEfE1lbyLQfpP XzMOJpbxMqu3prJ8c3O3K hdGNoeSBpbmNyZWFzZSBp biBpbnRyYWVwaXRoZWxpY IagzZyzxZucW9i9RFPmkR bbOUirqW4eDTYvZXSCyB5 gFAVpSPXvldDmhB1qFCUo v6LyvHummSzbEXApOKPye TVfZsGhfWOkYQH8uF7vaD Awh9RxE6hawIOyGNNidv8 jpCNkKKL0sOYoWOirj3Bw zOTyk9jrhR1bID2Zu9Srf Ch0ECSke4GzTKPupHReSl BztOCtEFL7uZ6reFZohmi ymqouaEMwo49pai64sSsa PJBfoQMqxjvjL4ceuL6oZ VlhcfFxOg5cTPB0p20gF7 awDRNyWNpuPOXcr2QegPu cbGluZSAtSGVsaWNvYmFj mJKeNUI9mX3jmHKbe3WzZ 3mvfQFmIPAstv9qfVGrGS V1aCHbYZunc1LuiSKls5s gwK7xYO5Ay0NddJr3NSQy z4UtLGUlyNUkFiNglMSqQ MW6bY0fzZNjxehrksdxxW Sfb17cym08oMbbJBPyfAL djoksY4uzATA7 [facility] Work Phone: Gross Description v8niqAOrRJGnbGSSZAJf M LOrJI4uiJuvlTf6iEdwMK EccxI8xHWaEGrdt6flWAA 9j8wzydJHVtwlOPLfXSes TBXcvhxrZaS5GEufQLYyu jlcAUb3AAcyCXTtmSD0ZZ NazTSrQ2WhNQBmJG3atdk 5TSX6HFycDOOcDdR1UGNk QuFgOivaGSb7PWKjonC2I xi7NATyRRDsrEKwr1V9VD tynfkrUIJdpJJpZ598WFm xa2JhqUAlZUitrJGaNUDY ItiqCkmriRloi4ZxxYZxE GlkIDUxMDAwIFxcbmggXF s5YIGtBHoptXYpEV6ztQa oTbqocVpuh8IafQDvPBnz BRAwABJoUYlpSXKjFN6FL xZhYSVwUEG4KMmlCvF8FB g7DEHNGtIuXyBmAbIqXMJ lMzGrUWt8LYy7MKxFOsTn MOQuUgZaAZMuCtD1WQvbP yBcXHQgMiBcXGYgQXJpYW ssEAfjsBHxTX3fmVarwBP pbiBBLiBTTUFMTCBJTlRF V2FCJwEwHtvRUYVJGYNzb iANClxlcGljTmVzdERvYz EgDQpcbHRycGFyXGxpbjB ccmluMCANClxsdHJjaFxm rzUqUQThE9MzmlQpGGqvC TXjls7skFzmTCFuTEHtwJ n3uXTgLFZgaSKcKTUhe6V loPLyZPZpj9J6NMLit4D7 NZVoR2wvZPkxuSmiJyM5g yAxLjAgeCAwLjIgeCAwLj FoQ10tSOBolJCjuMhga8W rdOt6bJZrHQhjQV9cKDQh BCGkTOP7MM1ekNdnRNKKY lxlcGljTmVzdERvYzBcdj I1YJIhiEUpSVL6FZ3gWYP muhnmYHZjNKRiGUD4KOcx pP14aREiKWWwPWAeoXUrt VxwbGFpbiANCntcKlxlcG cez8XfhWJtAZqzSSQqZIQ tPObtGFRsHC1YEkQdJRLh RJF9POlaGzQ3AAt8TIVNR lMgIiAgMzExNDIyNzQiID h4GHx9ZOmAKnCaFZAwRkB aEYT4YVB5RLkbZwCoFHTi MiBcXGYgQXJpYWwgXFxmb TVwYJ5bjHdvmPYflytqem M2QDJnXHbhOQCrNTTTSWN EYKPjH6EIGFKEJNpfMwcR UFNZXHBhciANClxlcGljT mVzdERvYzEgDQpcbHRycG FyXGxpbjBccmluMCANClx woKNslZepiwFbIZUuJ9On zeYnREntRIMhnw7yxOxgW YIfQBYanTc9jMFyXHUiuD WyOHBwf5ZloLAkBAWxg1R 8DIFtx4B7WPRcM8mmJPto wVzjMrV2dhHhHyWnjUKxA cUkaQNwJnWaD91iWOEyjO KclNfzx0BlhUt0uRAtZJv nWZ8rZJShRQOnHSO0RO1n bGluZSANClxlcGljTmVzd DUcCySjlqN7VPHajRXuAR Z3JF9bCTPcoueyRUTxKOK sZBQ2SKlexS56zPMwZQNy MTZccGFyfVxwbGFpbiANC mmfVtzjrOzkn7ZwtHTpJG lkIDUxMDAyIFxcZGIgIE9 SLxNzVIAyWBK3ZSriKtX6 RFg8GYGAWhLjZfVwImPqC OVkFgIwFTj3VSh8ODrYZh QhOJJxTkCtZYk6NbF4QUl yNyBcXHQgMiBcXGYgQXJp VCbuXRlujSSlWT8ylDdpb VGgcwatbnQ1CDDtRItbQJ MnGOXCD64EU8vsCptPCKE ZXHBhciANClxlcGljTmVz dERvYzEgDQpcbHRycGFyX GxpbjBccmluMCANClxsdH XyxJmvdhWhXCZfI2JutsJ nXQyeFNYugd1oeBunMPCa ARDmuPn0hZWwKUEjkDWqG GHcw1AvrMUzSQLod0A1SV Xpb6U0TTTdI2hpIHmezUk cEnN8wnTeVyobtYHuDuOo bOZgKtQjX68mYENqaXPjh Zboa6VngHz7iMDsNZjcKD 7iLBUcAKWsGPT2HU7aiPi lYMCbBVUeshTVSoaOZR3y eSAxMSwgMjAyMyAxOjQxI HJGZA8xtXQlYF6JRQCghb FDChqxd2HcQHH3YQ1rojR 0aP4nFLIukzZwun1wBOPp xUMRuZM9VMsjcmEuS4xax pwuGUC7KNFqZEI8A4rqGI THbaYgCPBYoWX6IGpipbP eKC9JISS5NQq8SVDizgYO ClxlcGljTmVzdERvYzBcd vV8WJMviQYkIFC1FM7xBK WmnsscCAFfRIMgUHD5MIq axQ07iUWrKCGlGJPtkHOq mIwaiZWueoYNHknikP1eJ uTut3jyaMn6FIPXWlbpuV KvhuwaaoF6MJGdt9khrAx we3ZbvFTuWK3wtRctbR5j ZnMxNiANCn0= [facility] Work Phone: Per[facility] a2pasCZtEFCvrBJvGqKa M PRbXSKfe2lnGQLovBItPn EwMzNcZnRuYmpcdWMxXGR hSvTyl7qxs614hWXwx2xz RSBfZnX9hMBpTUUaoUHhQ 350WDTlNIbmz8acd9YoDI NonSJat2C1FCLWptrpzUu 2rCyeD14ef4T4AqusG3lo EONoIZAnO2EtBO0aGJCcN qy7KOY5KHA9MGRvBWXrN4 RkAA1kURRxzLAdAHx3n6c fvXlvPMKeCQA9z6dvZReu kfJgIY7ory4jzNz6t0hyq zEgRGVmYXVsdCBQYXJhZ3 GatDejNn7irEv9iQfgGcu dKQA4Fyf9XL7hey26dgz2 oMciSVFzvxxwOsL4WIwcD NKcsxhyKSr4TGpeWMZrtL V2FSGciEVpX4HkFTdgPP0 nqsp7RWA1ZLbdNAPzFmO3 NDBcaGVhZGVyeTcyMFxmb 248CPU2AiQwJF3rS4Kdt2 Y1cF4krZQvQFKejVSjNmF iULCezt6niLVjNFwsu2Bu CYV2mzQ0pDPdoKJoOMXwY F75Yrvqi6OpLzopi6TxG2 0qmDJ1OOqri7myGR0kAwO 8vpLlLWens7dnsE7fZwE8 LIfmUR3tZA7wMNDkcX3zt mxjXHBnYnJkcmhlYWRccG qahkOaRa5nxStxZFV3AMc iU1fzgD8lQpZ2TAznF4pp pO0bUWo1ODphuMT9VNKik Z7rHX4wdnfuu3laAHxvDT jsXYDvqkZ4avJmSDGucRA vE9EqwY5oJHLrYF7ilxib b7ktUXS0VNhlBNXdJFW9I fEzRZVvo5Pflav2JsBir3 RrmTChCMhoU28qr564BHA kxpRtU3oosYAwdskuaKGy yiiwRFswksK2NXKiJASmH WluXGYxXGZzMjJcbGFuZz EwMzNcaGljaFxmMVxkYmN aWBNdRHudZ8mdJkHpOpTg IzILjJGrpi2qqVflLVkwq JUxuOCuoEO0dN8uAHEonv Qlfk2hEIAeaBNHzXG9WJn dzhRvS2gourdbNTG7UDZr MPX9B3bjSEEGkoOaAZBdG TCeePPoLYLOAGA2SFQ2XJ BkFKCRYSKlFPS5VOJ9KJN wOTRccGFyXHBhclxwYXJk XHBsYWluXGYwXGZzMjRcc VjusR0nBvRaCdBvTgqtPD 7mUGWbR1vmaOHgFXXvIGP eQ5fzWdPmcY3tsBezNDyf ZjJcZnMyMlxsdHJjaCBMY MPvkxH3s1O5YFxpgVJaos xmMVxmczIyXGxhbmcxMDM oXPudT7uqRnZrEQAbbQvl HRjee2CaZEZyNTNgEbNjS UiyTSS5s2G4NCqwsYIqks JQZaVXFW5ypDOmffwhHU8 ELlxwYXJ9 [facility] Work Phone: [facility] Work Phone: EGD Study observation Narrat iveon 08-31-2022 Radiology Study observation (narrative) [facility] CITRATE URINE 24HRon 023 Citric Acid, U, 24hr 472 mg/24 hr Normal 320-1240 Th e [facility] Comment on above: Result Comment: This test was developed and its performance characteristics determined by [employer] It has not been cleared or approved by the Food and Drug Administration. Performed By: #### A LPHPHN #### [facility] [address] [place] [address] Dr. Li Nagel Citric Acid, Urine 472 mg/L Normal Undefined [facility] Comment on above: Performed By: #### A LPHPHN #### [facility] [address] [place] [address] Dr. Li Nagel OXALATE 24HR URINEon 023 Oxalates, Urine 19 mg/L Normal Undefined [facility] Comment on above: Performed By: #### O X24HR #### [facility] [address] [place] [address] Dr. Li Nagel Oxalates, Urine 24hr 19 mg/24 hr Normal 4-31 [facility] Comment on above: Performed By: #### O X24HR #### [facility] [address] [place] [address] Dr. Li Nagel MAGNESIUM 24HR URINEon 07-09 Magnesium 24hr Urine 45.0 mg/24 hr Normal 12.0-293.0 [facility] Comment on above: Performed By: #### I MMUN G #### [facility] [address] [address] [address] Li Nagel Magnesium UR 4.5 mg/dL Normal Not Estab. The [facility] Comment on above: Performed By: #### I MMUN G #### [facility] [address] [address] [address] Li Nagel PHOSPHORUS 24HR URINEon 06-22 Phosphorus, Urine 51.4 mg/dL Normal Not Estab. [facility] Comment on above: Performed By: #### P HOS 24 #### [facility] [address] [place] [address] Dr. Li Nagel Phosphorus, Urine 24hr 514 mg/24 hr Normal 261-1078 [facility] Comment on above: Performed By: #### P HOS 24 #### [facility] [address] [address] [address] Li Nagel URIC ACID 24 HR URINEon 06-22 Uric Acid, Urine 64.0 mg/dL Normal Not Estab. The [facility] Comment on above: Performed By: #### A LPHPHN #### [facility] [address] [place] [address] Dr. Li Nagel Uric Acid, Urine 24hr 640.0 mg/24 hr Normal 173.7-902. 1 [facility] Comment on above: Performed By: #### A LPHPHN #### [facility] [address] [place] [address] Dr. Li Nagel CALCIUM 24 HR URINEon 2022 CALC, 24 HR UR 155.0 mg/24 hr Normal 100.0-300.0 [facility] Comment on above: Performed By: #### I MMUN G #### [facility] [address] [address] [address] Li Nagel UR CALCIUM 15.5 mg/dL Normal 5.1-21.0 [facility] Comment on above: Performed By: #### I MMUN G #### [facility] [address] [address] [address] Li Nagel UR TOT VOL 1000 ml/24 HR Normal [facility] Comment on above: Performed By: #### I MMUN G #### [facility] [address] [place] [address] Dr. Li Nagel Performed By: #### A LPHPHN #### [facility] [address] [place] [address] Dr. Li Nagel CREA 24 HR URINEon 3 CREA, 24 HR UR 1891.80 mg/24 hr Critically high 800.00 -1,800 .00 [facility] Comment on above: Performed By: #### A LPHPHN #### [facility] [address] [place] [address] Dr. Li Nagel URINE CREAT 189.18 mg/dL Normal 20.00-300.00 [facility] Comment on above: Performed By: #### A LPHPHN #### [facility] [address] [place] [address] Dr. Li Nagel PTH INTACTon 07-08-2022 PTH, Intact 41 pg/mL Normal 15-65 [facility] Comment on above: Performed By: #### H EPACUT #### [facility] [address] [place] [address] Dr. Li Nagel SODIUM 24 HR URINEon 023 NA, 24 HR UR 149 mmol/24 hr Normal 40-220 [facility] Comment on above: Performed By: #### A LPHPHN #### [facility] [address] [place] [address] Dr. Li Nagel Sodium (U) [Moles/Vol] 149 mmol/L Critically high 30-90 [facility] Comment on above: Performed By: #### A LPHPHN #### [facility] [address] [place] [address] Dr. Li Nagel BUNon 07-06-2022 Urea nitrogen [Mass/Vol] 11.0 mg/dL Normal 7.0-18.0 [facility] Comment on above: Performed By: #### B UN, URIC, CA, K, NA, CL, CO2, CREA #### [facility] [address] [place] [address] Dr. Li Nagel CALCIUMon 07-06-2022 Calcium [Mass/Vol] 9.0 mg/dL Normal 8.5-10.1 [facility] Comment on above: Performed By: #### B UN, URIC, CA, K, NA, CL, CO2, CREA #### [facility] [address] [place] [address] Dr. Li Nagel CHLORIDEon 07-06-2022 Chloride [Moles/Vol] 107 mmol/L Normal 98-107 [facility] Comment on above: Performed By: #### I MMUN G #### [facility] [address] [place] [address] Dr. Li Nagel CO2on 07-06-2022 CO2 [Moles/Vol] 29.2 mmol/L Normal 21.0-32.0 [facility] Comment on above: Performed By: #### I MMUN G #### [facility] [address] [place] [address] Dr. iL Nagel CREATININEon 07-06-2022 Creatinine [Mass/Vol] 0.97 mg/dL Normal 0.55-1.02 [facility] Comment on above: Performed By: #### B UN, URIC, CA, K, NA, CL, CO2, CREA #### [facility] [address] [place] [address] Dr. Li Nagel EGFR-AF MONGOLIAN >60 Normal >=60 [facility] Comment on above: Performed By: #### B UN, URIC, CA, K, NA, CL, CO2, CREA #### [facility] [address] [place] [address] Dr. Li Nagel EGFR-NON AF MONGOLIAN >60 Normal >=60 [facility] Comment on above: Performed By: #### B UN, URIC, CA, K, NA, CL, CO2, CREA #### [facility] [address] [address] [address] Li Nagel NAon 07-06-2022 Sodium [Moles/Vol] 143 mmol/L Normal 136-145 [facility] Comment on above: Performed By: #### I MMUN G #### [facility] [address] [address] [address] Li Nagel POTASSIUMon 07-06-2022 Potassium [Moles/Vol] 3.6 mmol/L Normal 3.5-5.1 [facility] Comment on above: Performed By: #### I MMUN G #### [facility] [address] [address] [address] Li Nagel URIC ACID SERUMon 07-06-2022 Urate [Mass/Vol] 4.7 mg/dL Normal 2.6-6.0 [facility] Comment on above: Performed By: #### B UN, URIC, CA, K, NA, CL, CO2, CREA #### [facility] [address] [address] [address] Li Nagel SURGICAL PATHOLOGYOrdered By : Karan Nieto on 07-04-2022 Case Report Surgical Pathology Report Case: [id number] Authorizing Provider: Carol Winn MD Collected: 06/30/2022 11:43 AM Ordering Location: Ambulatory Surgery Received: 06/30/2022 10:42 PM Pathologist: Karan Nieto MD Specimens: A) - DUODENUM BIOPSY, r/o celiac B) - STOMACH BIOPSY, r/o H pylori [facility] Work Phone: Diagnosis Comment l6glrZPkEZRanZNqRYOf N ElyxkQoBRAxrWJvL7Thqw yhJNdjLE8aAO6szHfoyPB bmNWlJQUhCwPgq1sow813 qWFyh4fyQUDIrmjgjQi6u IovX24ug1P0ClelZ52gbL EjSEN9NAUtPYJsvYCzFEW eYIQ4ROKjtHLmD3miYYEi GP7ajyarVMpaEIllOEGev SC9ZTDzuQPjN1CaTEOsBW ktBCOxzyt1YePiAn0ckFU yeTcyMFxwYXJkXHBsYWlu EGQpPvGvBW9fCD3pneYlt 2VkIGludHJhZXBpdGhlbG sixZMkbA1qlP0lkQPonsi cxE1xoIcoMTTee5HqA3Yo t9MufvrkyD39mbQsAe6xg q3rmIv9fOBhTYYoNBptAu Imf1ElppJvrwPwc7QgU4i djLjbdpC9vVNbDOKwrTvw YyBkaXNlYXNlIGFuZCBvd YgptcHxx74stHGzj30zQQ C9I7cjZAOocTYrcZqxDCB mp1Bab9LeQBedNuIcrCcu ysFdyU8nlCHpwS8lTIsxt Uocj7FaP8GrohMniGfswg aamJ8mVZP8qQ2kBSjzYQ0 kIHNvbWUgbWVkaWNhdGlv vuJeTUYzfR3oK9WfEFIfm yVeaCJ3tO5xQSkviCmjTQ Afel4vhfgtsFUbb5Zdz4x aV4xuBRV5vYDvEHBbeILb YdHhU68uh0jaMLGlAKUxN yCxjPzrkQIqnVl1LOwuYD qxLOZqVA1mxIOtbH== [facility] Work Phone: FINAL DIAGNOSIS y4dpjRPnLCKdoSDuGRXt N HihqqBeOOQyoCMxI0Jebg jgQBbvZC4bPH5skAxldXO bsYTvJTEhGnGhk9aio673 tANqp1yqRYJFdhwqsOn8x BsaM36cq8K7ToprK19ioN VtWJP3QTOdBHZasKPaOAA qLQE2FKMxbOLzU8rgNJMh WL6abydrRCyrPSlcKDTzz AO1FGZojFPhI6GgXVCcEE itRQCtmes7KaRmYu2raRX yeTcyMFxwYXJkXHBsYWlu LNHvAePeAL5cKHKjPOMgk R6fWVLoz6CnnWqxtWXmJE 1bH37pdQntlX80CYP7mA9 wwVJvmRPdr1Cfa3a2uYTw r6UcLJwibbvlhH71deEda xWbsBXuM7Q3emGoPP5oPI mvO9VyRXQbFAIwhyRmJBQ waXRoZWxpYWwgbHltcGhv E6s2NCI4HSNcYGNzj84qZ X87BammWKSicNQzTOSeCM J0m06pL3ofIOEei3KueXo ftJWhYQ2fG2VjwBZbQzGg pVtdoZpcVK35O42dIYH1t RSiIECatn1ytCYqWAU5wL JfWPfvlViiy7NrH3FxtyG grWsextecFKZni1WdGAPc RPKrBNR3pgc4zTQdLVJgb n0= [facility] Work Phone: Gross Description i0pwgWTtPIElwVPUZVEw M QLrOC7rsZfwwHb6nQvfBM VvfgJ6cWEnYMohg3poLNO 2n7ouivVTJwmoKKVsKAcm FCVtkdzjEpH9ZTlgYTSlk gxdRFm4LAjkRKRmtII0NN McgEKlU0HnKBWuIN7wcte 4LDY3SXwlSGYtReB6SSNi HnMmYxawNBj3XWFadbU3V cz9RAPnQFTqeZJca4Y4BB xpxpdkGXMioSFnZ738QDf xi9KxyMCyGKqmmGZfSPVO SteyDiietOprz9WnwXCyS GlkIDUxMDAwIFxcbmggXF f3YCKmMRuflGQmDS2ocVf gUicbjVoog2EuhPIiVGde FUNrFNNaEHcxDMFkZT9ME eHwQAA0Vie3Hvy4BhY4MV j3WFXZZiVeAxLuWktyVUZ 8UVAbUCg5OLj0PMtJSqG4 CCEpQMfmOBGvZHZ5PMi9G FxcdCAyIFxcZiBBcmlhbC HwNLOnSIinlfH1HWWnUXw vDNMgCNPAA4LXNaYJXBUX Q7VKIYdrNFYpQEdaVTEdM 15dm1TQs6WwKI4LOCw2wr KyryqhdI2gLWUjjvEqBXf sjATlY3gfKyFcALAXXKTj fRGiVTCaojTnc4YxPDkna iBhcmUgbXVsdGlwbGUgcG xyY0SgYJ4yWKPwybdja39 avJM4tKPreODsQYwssbOp IAVjdkrkpD5bFM07GLqrB O2jBXagKR1pJFFyTbILx0 MzkBn1RHT6Qq7idDEzFGG psnImimVfU2Ykz5Q6lDGv LSbmOTFdP53pt1JYb1WgH VDhi4ataUtcz4LouYHwUM xnXAQcuDTeREgiuB7tEtV hb3yfpAx8PSfkouK3WQMi fh6ndWcnbU6jXNu4VQdqH YEuG7OlU2JuDLfhBHV3IL AwMiBcXGRiICBPVlIgIiA dZaG4KRR5TZXkWOv2BCgo Y4UDRXTxYLY0IOa2JQz8M sH8IDa7XMGNKd7bHKijWb f9LKTaGUH6VDz8MZQeNHK gMiBcXGYgQXJpYWwgXFxm cLAuJX4ibNpkjFCpmaddx vC4ECPzNKhkIIFnOYQHY5 6UM0sjLawESEZCUSSfpvS NClxlcGljTmVzdERvYzEg DQpcbHRycGFyXGxpbjBcc mluMCANClxsdHJjaFxmcz KmLRDvA4OjlyOpVMzbCPN lev0sbAxkYOQmUUL2o86m rIwyE1KeCI7cBLTzlblce 67mrWP0iDIzeTXyUIgacz JqLGUbpyqgzK8rJD9rLTa fNB3uPPgqLL4dZUBjQiMO y3QjbCu9ZMG0Rd8xgYYrF RKhodIybiRsK0Wzl8R1yJ UuIFxwYXIgDQpccGFyIA0 MI2Huy5MnWGpzjFxkXTMu d33msYFsGe3dlVKwESC8G ENsZXZlbGFuZCBDbGluaW YyHVi0DUQnNCNujLcpOEG 0LK7dCBXsTFXbqTYzSJpx P2soARGdDKIbqUCcLT8OQ HBhciANCkpUIDAzLzEwLz ElTmRlGFi1XcITXXdnMAS qTMemZIVkU45dt3QSv0Xk INSvx1pogCxpz2RjyXElI GbwCZUuoXJqUZipuU3xCc Lwi3brmFq9VEthoeU1KQH djo6oeNdkvO4mQEela5hl ZAS6GSQghEIbdZDfFVfpm GtthZ6qGiMvTwv3LCmrND UqI2SzF0OstrR2JNGjNQz uXGZzMTYgDQp9 [facility] Work Phone: Performing Lab j4scpQMrBMDgpKKxLmDy M RXvCKRbr2rbZAKisSVyIa EwMzNcZnRuYmpcdWMxXGR vKeQgj4jvu683bTSbn1ba YYOvFkI2bZJiHSVbxZCuF 548IJFmVVfzl8jja8FqCZ SwbPWma2B7GVLPdkgruDh 2hClgI48lp7Q0XkqzB2cg SOZgJSQiU6WzUN3oECXyJ qh4GKO7CZW9CWTdBOMiN1 LjFS1dEWSfqGAjNBu1x5j fbLeoGEBhRBC5l5rzUItb teWgBH5ohx3biOy3q5tzw zEgRGVmYXVsdCBQYXJhZ3 HxyIcyLk2geTl5aOfiEzy sKYB5Etm2IM5jyy74zpp1 jUxmJIOhlkebSdV4CXeoN STnipxkOEt8AEfwSSKeuQ D1KQJrqOSyO1YkHXolJL1 skue4PJG9LWtsKRLvNbN7 NDBcaGVhZGVyeTcyMFxmb 252PAK5EaIqPE5aR6Xuq0 V6yV5lfLJbQVLdpGMiVfE oJWUneu1txLDjLMbvb6Iy UJJ4ceN3zRTaiPViQMHmR K43Qboap6VjNhxrt7PmK9 9nvCA2EOzdd2gkDH2kLpM 9lnLuMOkjr9gaoL3oTiP4 LXjpMD8cNT6mTYGgeU3xq mxjXHBnYnJkcmhlYWRccG hgplQoOh7vrCqsMJU1WLk gH7yehQ7iEhM3VVdwW6fk hR1hJEw6VWagaYD7QXAoa E4nPG6syhbed4icFHsyCB npSECbtnA7hrLgALWwjOV rG3CeuQ7rVSOcSK9xsdiz s3omLQU0PNbhDSKnYMA7Y iLzFHGdz0Trmzl7MdMrc2 MmgRUqCMjuB41it940DVE oorZlR5kmzYBdoqnjfIMw eplaZGemlgQ7CEQvXELbQ WluXGYxXGZzMjJcbGFuZz EwMzNcaGljaFxmMVxkYmN zBFUhDOdwJ7fyWiIlEdSi NxXJoRTbpv9yzGqwBJunr NKdxFJpoSU7eE2oQLBvse Zuwv8fQMBfpLIHhZU5RNh jqrLpV6tqskujUAZ9RVRl RUJ3W4bgGAOThjMlHWVuA GLmoFNtQDMCZQL0QRH4BP EpLEPBZZNcCED2XXN5ZFN wOTRccGFyXHBhclxwYXJk XHBsYWluXGYwXGZzMjRcc LpxyL6aXvBxFpCeKrwqAB 7lLALkZ2gcfSWmYPKqZIL vL7sgAcQzeF9jpHryYCox ZjJcZnMyMlxsdHJjaCBMY NGottW0l2L5OGbrdWTeoe xmMVxmczIyXGxhbmcxMDM iTGlxF1uyUkMwJLNpwChl UNxls9DoUHMcHKRrBxGwK KjlHYS9v7P4RHqxgWApux GAJsVVBF8nmAIeuctzDA4 ELlxwYXJ9 [facility] Work Phone: [facility] Work Phone: EGD Study observation Miguelito bender 06-30-2022 [facility] Gastro[facility]ology Gastrointestinal Endoscopy Patient Name: Orion Harper Procedure Date: 06/30/2022 11:41 AM Date of : 1990 Admit Type: Outpatient Age: 31 Room: [place] [address] Gender: Female Note Status: Finalized Attending MD: [...] by the physician, the nurse, the machine printer and the refrigerator repair technician in the procedure room at 11:35 [...] gastric ulcers (more content not included)... [employer] [facility] Radiology Study observation (narrative) [facility] XR KUB 1 VIEWon 06-30-2022 XR [...] JACKSON ADKINS Date: 2022-06-30 07:02 Normal [facility] US ABD RT UPPER QUADRANTon 0 06-15-[address] [facility] [address] ABD/PEL WO IVCONon 2022 Radiology Result ACTIONABLE [facility] No Panel Informationon 05-27 [facility] YDXHT-9-NGWPEORCQME PHENOTYP INGon 05-11-2022 Whryh-6-Xmbyrjmprst, Serum 130 mg/dL Normal 100-188 [facility] Comment on above: Result Comment: Perf ormed at: CB Performed By: #### A LPHPHN #### [facility] [address] [place] [address] [id number] [address] Li Nagel Phenotype (PI) MM Normal [facility] Comment on above: Result Comment: Phen otype [...] BN Performed By: #### A LPHPHN #### [facility] [address], [place] [address] Dr. Li Nagel HEREDITARY HEMOCHROMATOSIS, DNA ANALYSISon 05-11-2022 Hereditary Hemochromatosis Comment Normal [facility] Comment on above: Result Comment: Resu lt: c.845G>A (p.Icn608Omv) - Not Detected c.187C>G (p.Zrb24Qzn) - Not Detected c.193A>T (p.Mlj16Jlh) - Not Detected Not associated with increased [...] for patients who are homozygous for c.845G>A (p.Jat646Vgo) and have yet to experience clinical symptoms. . Comments: The most common HFE variants associated with hereditary hemochromatosis are c.845G>A (p.Xli371Olv), c.187C>G (p.Wug32Gdp), c.193A>T (p.Pwa06Ded). While patients homozygous for c.845G>A (p.Mcp497Mjl) are the most likely to present clinical symptoms, less than 10% develop clinically significant iron overload with tissue and organ damage. . Genetic counseling is recommended to discuss the potential clinical implications of positive results, as well as recommendations for testing family members. Genetic Coordinators are available for health care providers to discuss results at [phone]). . Test Details: Three variants analyzed: c.845G>A (p.Cje003Esn), commonly referred to as C282Y c.187C>G (p.Uhf93Opk), commonly referred to as H63D c.193A>T (p.Jjt00Gxb), commonly referred to as S65C . Methods/Limitations: [...] developed and its performance characteristics determined by [employer]. It has not been cleared or approved by the Food and Drug Administration. . References: Brodie BR, Yoav PC, Deborah KV, Raymond LW, Ramsey ; [place] [employer]. Diagnosis and management of hemochromatosis: 2011 practice guideline by the [place] [employer] Liver [employer]. Hepatology. 2010;54(1):328-43. doi: 10.1002/hep.49280. PMID: 29547259; PMCID: GSV8654012. Cora G, Olegario P, Fabio DW, Tabatha H, Love O, Zev S, Vazquez I, Kofi M, Sunitha S. [facility] best practice guidelines for the molecular genetic diagnosis of hereditary hemochromatosis (HH). Eur J Hum Margaret. 2016 Jul;24(4):479-95. doi: 10.1038/ejhg.2015.128. Epub 2014Oct 29. PMID: 19586348; PMCID: ZAY3165222. . Anitra Hager, PhD, FACMG Dm Reyna, PhD Alexandro Rodriguez, PhD, FACMG Jhony Hammond, PhD, FACMG Oumar Avila, PhD, FACMG Rob Brand, PhD, FACMG Pascale Gracia, PhD, FAC Lala Marvin, PhD, FACMG Performed By: #### H EPACUT #### [facility] [address] [place] [address] Dr. Li Nagel DENY by IFAon 05-06-2022 Antinuclear Antibodies, IFA Negative Normal [facility] Comment on above: Result Comment: Nega tive <1:80 Borderline 1:80 Positive >1:80 ICAP nomenclature: AC-0 For more information about Hep-2 cell patterns use ANApatterns.org, the official website for the International Consensus on Antinuclear Antibody (DENY) Patterns (ICAP). Performed By: #### A LPHPHN #### [facility] [address] [place] [address] Dr. Li Nagel CERULOPLASMINon 05-05-2022 Ceruloplasmin 27.9 mg/dL Normal 19.0-39.0 [facility] Comment on above: Performed By: #### H EPACUT #### [facility] [address] [address] [address] Li Nagel HEPATITIS A AB IGMon 023 Hep A Ab, IgM Negative Normal Negative [facility] Comment on above: Performed By: #### I MMUN G #### [facility] [address] [place] [address] Dr. Li Nagel IMMUNOGLOBULIN G INDEX SERUM OR CSFon 05-05-2022 Albumin [Mass/Vol] 4.8 g/dL Normal 3.8-4.8 [facility] Comment on above: Performed By: #### I MMUN G #### [facility] [address] [address] [address] Li Nagel Albumin, CSF NSPINL Normal [facility] Comment on above: Result Comment: Test not performed. No spinal fluid received. contacted Radha at your facility on 05-05-2022 Performed By: #### I MMUN G #### [facility] [address] [place] [address] Dr. Li Nagel CSF IgG Index UPTCAL Normal [facility] Comment on above: Result Comment: Unab le to calculate result since non-numeric result obtained for component test. Performed By: #### I MMUN G #### [facility] [address] [place] [address] Dr. Li Nagel IgG, Quant, CSF NSPINL Normal [facility] Comment on above: Result Comment: Test not performed. No spinal fluid received. contacted Radha at your facility on 05-05-2022 Performed By: #### I MMUN G #### [facility] [address] [place] [address] Dr. Li Nagel IgG/Alb Ratio, CSF UPTCAL Normal [facility] Comment on above: Result Comment: Unab le to calculate result since non-numeric result obtained for component test. Performed By: #### I MMUN G #### [facility] [address] [place] [address] Dr. Li Nagel Immunoglobulin G, Qn, Serum 971 mg/dL Normal 586-1602 [facility] Comment on above: Performed By: #### I MMUN G #### [facility] [address] [place] [address] Dr. Li Nagel LIVER-KIDNEY MICROSOMAL (LKM ) [...] infection. Performed By: #### H EPACUT #### [facility] [address] [place] [address] Dr. Li Nagel MITICHONDRIAL (M2) ANTIBODYo n 05-05-2022 Mitochondrial (M2) Antibody <20.0 Normal 0.0-20.0 [facility] Comment on above: Result Comment: Nega tive 0.0 - 20.0 Equivocal 20.1 - 24.9 Positive >24.9 . Mitochondrial (M2) Antibodies are found in 90-96% of patients with primary biliary cirrhosis. Performed By: #### A LPHPHN #### [facility] [address] [place] [address] Dr. Li Nagel SMOOTH MUSCLE ANTIBODYon Actin (Smooth Muscle) Antibody 9 Units Normal 0-19 [facility] Comment on above: Result Comment: Nega tive 0 - 19 Weak positive 20 - 30 Moderate to strong positive >30 . Actin Antibodies are found in 52-85% of patients with autoimmune hepatitis or chronic active hepatitis and in 22% of patients with primary biliary cirrhosis. Performed By: #### A LPHPHN #### [facility] [address] [address] [address] Li Nagel FERRITINon 05-03-2022 Ferritin [Mass/Vol] 319.0 ng/mL Critically high 6.2-137.0 [facility] Comment on above: Performed By: #### A LPHPHN #### [facility] [address] [address] [address] Li Nagel PAP ACOG PANEL 2: 30 to 65on 04-28-2022 . . Normal [facility] Comment on above: Result Comment: Perf ormed at: [facility] Performed By: #### I MMUN G #### [facility] [address] [place] [address] Dr. Li Nagel Age Gdln ACOG Testing 30-65 Normal [facility] Comment on above: Performed By: #### I MMUN G #### [facility] [address] [address] [address] Li Nagel DIAGNOSIS: Comment Normal [facility] Comment on above: Result Comment: NEGA TIVE FOR INTRAEPITHELIAL LESION OR MALIGNANCY. Performed at: [facility] Performed By: #### I MMUN G #### [facility] [address] [place] [address] Dr. Li Nagel HPV Aptima Negative Normal Negative [facility] Comment on above: Result Comment: This nucleic acid amplification test detects fourteen high-risk HPV types (16,18,31,33,35,39,45,51,52,56,58,59,66,68) without differentiation. Performed at: =G Performed By: #### I MMUN G #### [facility] [address] [address] [address] Li Nagel HPV Genotype Reflex Comment Normal [facility] Comment on above: Result Comment: Crit eria not met, HPV Genotype not performed. Performed at: BA Performed By: #### I MMUN G #### [facility] [address] [place] [address] Dr. Li Nagel Methodology: Comment Normal [facility] Comment on above: Result Comment: This liquid based ThinPrep(R) pap test was screened with the use of an image guided system. Performed at: WB Performed By: #### I MMUN G #### [facility] [address] [place] [address] Dr. Li Nagel Note: Comment Normal [facility] [...] Performed By: #### I MMUN G #### [facility] [address] [place] [address] Dr. Li Nagel Performed by: Comment Normal [facility] Comment on above: Result Comment: Gretta Holly, Commercial Accountant (ASCP) Performed at: BA Performed By: #### I MMUN G #### [facility] [address] [place] [address] Dr. Li Nagel Specimen adequacy: Comment Normal [facility] Comment on above: Result Comment: Sati sfactory for evaluation. No endocervical component is identified. Performed at: BA Performed By: #### I MMUN G #### [facility] [address] [place] [address] Dr. iL Nagel HEPATITIS PANEL, ACUTEon HBsAg Screen Negative Normal Negative [facility] Comment on above: Performed By: #### H EPACUT #### [facility] [address] [place] [address] Dr. Li Nagel HCV AB <0.1 Normal 0.0-0.9 [facility] Comment on above: Performed By: #### H EPACUT #### [facility] [address] [place] [address] Dr. Li Nagel Hep A Ab, IgM Negative Normal Negative [facility] Comment on above: Performed By: #### H EPACUT #### [facility] [address] [place] [address] Dr. Li Nagel Hep B Core Ab, IgM Negative Normal Negative [facility] Comment on above: Performed By: #### H EPACUT #### [facility] [address], [place] [address] Dr. Li Nagel Interpretation: Comment Normal [facility] Comment on above: Result Comment: Nega tive Not infected with HCV, unless recent infection is suspected or other evidence exists to indicate HCV infection. Performed By: #### H EPACUT #### [facility] [address], [place] [address] Dr. Li Nagel US PELVIS AND TRANSVAGon [...] LAURIE CRUZ Date: 2021-12-22 09:50 Normal [facility] US ABD RT UPPER QUADRANTon 0 12-10-2021 [facility] US PELVIS AND TRANSVAGon US PELVIS [...] LAURIE CRUZ Date: 2021-10-28 13:01 Normal [facility] VAGINITIS/VAGINOSIS DNA PROB Kwasi 10-21-2021 Sharif species Negative Normal Negative [facility] Comment on above: Performed By: #### I MMUN G #### [facility] [address] [place] [address] Dr. Li Nagel Gardnerella vaginalis Negative Normal Negative [facility] Comment on above: Performed By: #### I MMUN G #### [facility] [address] [place] [address] Dr. Li Nagel Trichomonas vaginalis Negative Normal Negative [facility] Comment on above: Performed By: #### I MMUN G #### [facility] [address] [place] [address] Dr. Li Nagel CBC AUTO DIFFon 10-20-2021 BASO # 0.0 103/ul Normal 0.0-0.1 [facility] Comment on above: Performed By: #### A LPHPHN #### [facility] [address] [place] [address] Dr. Li Nagel Basophils/100 WBC (Bld) 0.4 % Normal 0.2-2.0 [facility] Comment on above: Performed By: #### A LPHPHN #### [facility] [address] [place] [address] Dr. Li Nagel EO # 0.2 103/ul Normal 0.0-0.7 [facility] Comment on above: Performed By: #### A LPHPHN #### [facility] [address] [address] [address] Li Nagel Eosinophils/100 WBC (Bld) 2.6 % Normal 0.9-7.0 [facility] Comment on above: Performed By: #### A LPHPHN #### [facility] [address] [place] [address] Dr. Li Nagel Erythrocyte distribution width (RBC) [Ratio] 12.6 % Normal 11.0-15.0 [facility] Comment on above: Performed By: #### A LPHPHN #### [facility] [address] [place] [address] Dr. Li Nagel Hematocrit (Bld) [Volume fraction] 40.0 % Normal 36.0-48.0 [facility] Comment on above: Performed By: #### A LPHPHN #### [facility] [address] [place] [address] Dr. Li Nagel Hemoglobin (Bld) [Mass/Vol] 13.3 g/dL Normal 12.0-16.0 [facility] Comment on above: Performed By: #### A LPHPHN #### [facility] [address] [place] [address] Dr. Li Nagel IG # 0.06 10e3/ul Critically high 0.00-0.03 [facility] Comment on above: Performed By: #### A LPHPHN #### [facility] [address] [place] [address] Dr. Li Nagel IG % 0.9 % Critically high 0.0-0.5 [facility] Comment on above: Performed By: #### A LPHPHN #### [facility] [address] [place] [address] Dr. Li Nagel LYMPH # 2.2 103/ul Normal 1.2-3.8 [facility] Comment on above: Performed By: #### A LPHPHN #### [facility] [address] [place] [address] Dr. Li Nagel Lymphocytes/100 WBC (Bld) 31.0 % Normal 20.5-60.0 [facility] Comment on above: Performed By: #### A LPHPHN #### [facility] [address] [address] [address] Li Nagel MANUAL DIFF REQ NO Normal [facility] Comment on above: Performed By: #### A LPHPHN #### [facility] [address] [place] [address] Dr. Li Nagel MCH (RBC) [Entitic mass] 31.4 pg Normal 26.7-34.0 [facility] Comment on above: Performed By: #### A LPHPHN #### [facility] [address] [place] [address] Dr. Li Nagel MCHC (RBC) [Mass/Vol] 33.3 g/dL Normal 29.9-35.2 [facility] Comment on above: Performed By: #### A LPHPHN #### [facility] [address] [place] [address] Dr. Li Nagel MCV (RBC) [Entitic vol] 94.3 fL Normal 81.0-99.0 [facility] Comment on above: Performed By: #### A LPHPHN #### [facility] [address] [place] [address] Dr. Li Nagel MONO # 0.5 103/ul Normal 0.3-0.8 [facility] Comment on above: Performed By: #### A LPHPHN #### [facility] [address] [place] [address] Dr. Li Nagel Monocytes/100 WBC (Bld) 6.9 % Normal 1.7-12.0 [facility] Comment on above: Performed By: #### A LPHPHN #### [facility] [address] [place] [address] Dr. Li Nagel NEUT # 4.1 103/ul Normal 1.4-6.5 [facility] Comment on above: Performed By: #### A LPHPHN #### [facility] [address] [place] [address] Dr. Li Nagel Neutrophils/100 WBC (Bld) 58.2 % Normal 43.0-75.0 [facility] Comment on above: Performed By: #### A LPHPHN #### [facility] [address] [address] [address] Li Nagel Platelet mean volume (Bld) [Entitic vol] 11.0 fL Normal 9.5-13.5 [facility] Comment on above: Performed By: #### A LPHPHN #### [facility] [address] [address] [address] Li Nagel PLT 211 103/ul Normal 150-450 [facility] Comment on above: Performed By: #### A LPHPHN #### [facility] [address] [address] [address] Li Nagel RBC 4.24 106/ul Normal 4.20-5.40 [facility] Comment on above: Performed By: #### A LPHPHN #### [facility] [address] [address] [address] Li Nagel WBC 7.0 103/ul Normal 4.0-11.0 [facility] Comment on above: Performed By: #### A LPHPHN #### [facility] [address] [address] [address] ABD/PELV W CONon [...] DOLORES MOON Date: 2021-10-20 14:53 Normal [facility] OCC BLD IMMUNO SCREENon 09-23 OCCULT BLOOD Negative Normal NEGATIVE [facility] Comment on above: Performed By: #### O BSCRN #### [facility] [address] [place] [address] Dr. Li Nagel PROF 14(COMP METB)on 022 Albumin [Mass/Vol] 3.7 g/dL Normal 3.4-5.0 [facility] Comment on above: Performed By: #### A LPHPHN #### [facility] [address] [place] [address] Dr. Li Nagel Albumin/Globulin [Mass ratio] 1.2 {ratio} Normal [facility] Comment on above: Performed By: #### A LPHPHN #### [facility] [address] [place] [address] Dr. Li Nagel ALP [Catalytic activity/Vol] 86 U/L Normal 46-116 [facility] Comment on above: Performed By: #### A LPHPHN #### [facility] [address] [place] [address] Dr. Li Nagel ALT [Catalytic activity/Vol] 109 U/L Critically high 14-59 [facility] Comment on above: Performed By: #### A LPHPHN #### [facility] [address] [place] [address] Dr. Li Nagel Anion gap [Moles/Vol] 7.8 mmol/L Normal [facility] Comment on above: Performed By: #### A LPHPHN #### [facility] [address] [place] [address] Dr. Li Nagel AST [Catalytic activity/Vol] 57 U/L Critically high 15-37 [facility] Comment on above: Performed By: #### A LPHPHN #### [facility] [address] [address] [address] Li Nagel Bilirubin [Mass/Vol] 0.4 mg/dL Normal 0.2-1.0 [facility] Comment on above: Performed By: #### A LPHPHN #### [facility] [address] [place] [address] Dr. Li Nagel Calcium [Mass/Vol] 8.9 mg/dL Normal 8.5-10.1 [facility] Comment on above: Performed By: #### A LPHPHN #### [facility] [address] [place] [address] Dr. Li Nagel Chloride [Moles/Vol] 104 mmol/L Normal 98-107 [facility] Comment on above: Performed By: #### A LPHPHN #### [facility] [address] [place] [address] Dr. Li Nagel CO2 [Moles/Vol] 27.7 mmol/L Normal 21.0-32.0 [facility] Comment on above: Performed By: #### A LPHPHN #### [facility] [address] [place] [address] Dr. Li Nagel Creatinine [Mass/Vol] 0.78 mg/dL Normal 0.55-1.02 [facility] Comment on above: Performed By: #### A LPHPHN #### [facility] [address] [place] [address] Dr. Li Nagel EGFR-AF MONGOLIAN >60 Normal >=60 [facility] Comment on above: Performed By: #### A LPHPHN #### [facility] [address] [place] [address] Dr. Li Nagel EGFR-NON AF MONGOLIAN >60 Normal >=60 [facility] Comment on above: Performed By: #### A LPHPHN #### [facility] [address] [place] [address] Dr. Li Nagel Globulin (S) [Mass/Vol] 3.2 g/dL Normal [facility] Comment on above: Performed By: #### A LPHPHN #### [facility] [address] [address] [address] Li Nagel Glucose [Mass/Vol] 104 mg/dL Normal 74-106 [facility] Comment on above: Performed By: #### A LPHPHN #### [facility] [address] [address] [address] Li Nagel Potassium [Moles/Vol] 3.5 mmol/L Normal 3.5-5.1 [facility] Comment on above: Performed By: #### A LPHPHN #### [facility] [address] [address] [address] Li Nagel Protein [Mass/Vol] 6.9 g/dL Normal 6.4-8.2 [facility] Comment on above: Performed By: #### A LPHPHN #### [facility] [address] [place] [address] Dr. Li Nagel Sodium [Moles/Vol] 136 mmol/L Normal 136-145 [facility] Comment on above: Performed By: #### A LPHPHN #### [facility] [address] [place] [address] Dr. Li Nagel Urea nitrogen [Mass/Vol] 10.0 mg/dL Normal 7.0-18.0 [facility] Comment on above: Performed By: #### A LPHPHN #### [facility] [address] [place] [address] Dr. Li Nagel Urea nitrogen/Creatinine [Mass ratio] 12.8 mg/mg Normal [facility] Comment on above: Performed By: #### A LPHPHN #### [facility] [address] [place] [address] Dr. Li Nagel XR LSPINE MIN 4 [...] ADKINS Date: 2021-08-27 16:05 Normal [facility] Comprehensive Metabolic Pane yair 08-20-2021 Albumin [Mass/Vol] 5.0 g/dL Normal 3.6-5.1 [facility] Specialist Comment on above: Performed By: #### C MP #### [facility] [address], [place] [id number] Albumin/Globulin [Mass ratio] 2.1 {ratio} Normal 1.0-2.5 [facility] Specialist Comment on above: Performed By: #### C MP #### [facility] [address], [place] [id number] ALP [Catalytic activity/Vol] 110 U/L Normal 35-119 [facility] Specialist Comment on above: Performed By: #### C MP #### [facility] [address], [place] [id number] ALT [Catalytic activity/Vol] 71 U/L High 6-33 [facility] Specialist Comment on above: Result Comment: 03/24 Female reference range changed. Performed By: #### C MP #### [facility] [address], [place] [id number] Anion gap [Moles/Vol] 17 mmol/L Normal 12-20 [facility] Comment on above: Result Comment: Effignacio ctive 04/29/2019 reference range changed. Performed By: #### C MP #### [facility] [address], [place] [id number] AST [Catalytic activity/Vol] 69 U/L High 9-34 [facility] Comment on above: Performed By: #### C MP #### [facility] [address], [place] [id number] BUN/CREA 11 Ratio Normal 6-22 [facility] Comment on above: Performed By: #### C MP #### [facility] [address], [place] [id number] Calcium [Mass/Vol] 9.8 mg/dL Normal 8.6-10.2 [facility] Comment on above: Performed By: #### C MP #### [facility] [address], [place] [id number] Chloride [Moles/Vol] 99 mmol/L Normal 98-107 [facility] Comment on above: Performed By: #### C MP #### [facility] [address], [place] [id number] CO2 [Moles/Vol] 25 mmol/L Normal 20-31 [facility] Comment on above: Performed By: #### C MP #### [facility] [address], [place] [id number] Creatinine [Mass/Vol] 0.9 mg/dL Normal 0.6-1.4 [facility] Comment on above: Performed By: #### C MP #### [facility] [address], [place] [id number] eGFRAA 94 mL/min/1.73m2 Normal >60 [facility] Comment on above: Performed By: #### C MP #### [facility] [address], [place] [id number] eGFRNAA 78 mL/min/1.73m2 Normal >60 [facility] Comment on above: Performed By: #### C MP #### [facility] [address], [place] [id number] Globulin (S) [Mass/Vol] 2.4 g/dL Normal 1.9-3.7 [facility] Comment on above: Performed By: #### C MP #### [facility] [address], [place] [id number] Glucose [Mass/Vol] 100 mg/dL High 65-99 [facility] Comment on above: Result Comment: For FASTING Glucose --- ADA reference ranges: Normal 65-99 mg/dl Prediabetes 100-125 Diabetes >/= 126 Performed By: #### C MP #### [facility] [address], [place] [id number] Potassium [Moles/Vol] 3.8 mmol/L Normal 3.5-5.5 [facility] Comment on above: Performed By: #### C MP #### [facility] [address], [place] [id number] Protein [Mass/Vol] 7.4 g/dL Normal 6.1-8.1 [facility] Comment on above: Performed By: #### C MP #### [facility] [address], [place] [id number] Sodium [Moles/Vol] 137 mmol/L Normal 135-146 [facility] Comment on above: Performed By: #### C MP #### [facility] [address], [place] [id number] TBIL <0.3 Normal [facility] Comment on above: Performed By: #### C MP #### [facility] [address], [place] [id number] Urea nitrogen [Mass/Vol] 10 mg/dL Normal 7-25 [facility] Comment on above: Performed By: #### C MP #### [facility] [address], [place] [id number] US SINGLE QUAD RT UPPERon US SINGLE [...] JACKSON ADKINS Date: 2021-08-16 08:19 Normal [facility] Complete Blood Count with Au to Diffon 08-06-2021 Basophils (Bld) [#/Vol] 0.03 10*3/uL Normal 0.00-0.20 [facility] Specialist Comment on above: Performed By: #### C MP, CBCAD, LIPD #### [facility] [address], [place] [id number] Basophils/100 WBC (Bld) 0.4 % Normal [facility] Specialist Comment on above: Performed By: #### C MP, CBCAD, LIPD #### [facility] [address], [place] [id number] Eosinophils (Bld) [#/Vol] 0.11 10*3/uL Normal 0.02-0.50 [facility] Specialist Comment on above: Performed By: #### C MP, CBCAD, LIPD #### [facility] [address], [place] [id number] Eosinophils/100 WBC (Bld) 1.4 % Normal [facility] Administrative Judge Comment on above: Performed By: #### C MP, CBCAD, LIPD #### [facility] [address], [place] [id number] Erythrocyte distribution width (RBC) [Ratio] 12.6 % Normal 11.0-15.0 [facility] Specialist Comment on above: Performed By: #### C MP, CBCAD, LIPD #### [facility] [address], [place] [id number] Hematocrit (Bld) [Volume fraction] 44.2 % Normal 35.0-47.0 [facility] Comment on above: Performed By: #### C MP, CBCAD, LIPD #### [facility] [address], [place] [id number] Hemoglobin (Bld) [Mass/Vol] 14.8 g/dL Normal 11.6-15.5 [facility] Comment on above: Performed By: #### C MP, CBCAD, LIPD #### [facility] [address], [place] [id number] Lymphocytes (Bld) [#/Vol] 2.2 10*3/uL Normal 0.9-3.9 [facility] Comment on above: Performed By: #### C MP, CBCAD, LIPD #### [facility] [address], [place] [id number] Lymphocytes/100 WBC (Bld) 28.1 % Normal [facility] Comment on above: Performed By: #### C MP, CBCAD, LIPD #### [facility] [address], [place] [id number] MCH (RBC) [Entitic mass] 31.2 pg Normal 27.0-33.0 [facility] Comment on above: Performed By: #### C MP, CBCAD, LIPD #### [facility] [address], [place] [id number] MCHC (RBC) [Mass/Vol] 33.5 g/dL Normal 32.0-36.0 [facility] Comment on above: Performed By: #### C MP, CBCAD, LIPD #### [facility] [address], [place] [id number] MCV (RBC) [Entitic vol] 93 fL Normal 80-100 [facility] Comment on above: Performed By: #### C MP, CBCAD, LIPD #### [facility] [address], [place] [id number] Monocytes (Bld) [#/Vol] 0.4 10*3/uL Normal 0.2-0.9 [facility] Comment on above: Performed By: #### C MP, CBCAD, LIPD #### [facility] [address], [place] [id number] Monocytes/100 WBC (Bld) 4.8 % Normal [facility] Comment on above: Performed By: #### C MP, CBCAD, LIPD #### [facility] [address], [place] [id number] Neutrophils (Bld) [#/Vol] 5.1 10*3/uL Normal 1.5-7.8 [facility] Comment on above: Performed By: #### C MP, CBCAD, LIPD #### [facility] [address], [place] [id number] Neutrophils/100 WBC (Bld) 64.3 % Normal [facility] Specialist Comment on above: Performed By: #### C MP, CBCAD, LIPD #### [facility] [address], [place] [id number] Platelet mean volume (Bld) [Entitic vol] 11.00 fL Normal 7.50-12.50 [facility] Comment on above: Performed By: #### C MP, CBCAD, LIPD #### [facility] [address], [place] [id number] Platelets (Bld) [#/Vol] 296 10*3/uL Normal 140-400 [facility] Specialist Comment on above: Performed By: #### C MP, CBCAD, LIPD #### [facility] [address], [place] [id number] RBC (Bld) [#/Vol] 4.74 10*6/uL Normal 3.90-5.20 [facility] Comment on above: Performed By: #### C MP, CBCAD, LIPD #### [facility] [address], [place] [id number] RDW-SD 43.4 fL Normal 37.0-50.0 [facility] Specialist Comment on above: Performed By: #### C MP, CBCAD, LIPD #### [facility] [address], [place] [id number] WBC (Bld) [#/Vol] 8.0 10*3/uL Normal 3.8-11.0 [facility] Administrative Judge Comment on above: Performed By: #### C MP, CBCAD, LIPD #### [facility] [address] [place], [place] [id number] Comprehensive Metabolic Pane yair 08-06-2021 Albumin [Mass/Vol] 5.2 g/dL High 3.6-5.1 [facility] [place] Administrative Judge Comment on above: Performed By: #### C MP, CBCAD, LIPD #### [facility] [address] [place], [place] [id number] Albumin/Globulin [Mass ratio] 2.1 {ratio} Normal 1.0-2.5 [facility] Specialist Comment on above: Performed By: #### C MP, CBCAD, LIPD #### [facility] [address] [place], [place] [id number] ALP [Catalytic activity/Vol] 115 U/L Normal 35-119 [facility] Administrative Judge Comment on above: Performed By: #### C MP, CBCAD, LIPD #### [facility] [address] [place], [place] [id number] ALT [Catalytic activity/Vol] 101 U/L High 6-33 [facility] Specialist Comment on above: Result Comment: 03/24 Female reference range changed. Performed By: #### C MP, CBCAD, LIPD #### [facility] [address] [facility] [place] [id number] Anion gap [Moles/Vol] 20 mmol/L Normal 12-20 [facility] Specialist Comment on above: Result Comment: Effe ctive 04/29/2019 reference range changed. Performed By: #### C MP, CBCAD, LIPD #### [facility] [address] [place], [place] [id number] AST [Catalytic activity/Vol] 96 U/L High 9-34 [facility] Specialist Comment on above: Performed By: #### C MP, CBCAD, LIPD #### [facility] [address] [place], [place] [id number] BUN/CREA 9 Ratio Normal 6-22 [facility] Administrative Judge Comment on above: Performed By: #### C MP, CBCAD, LIPD #### [facility] [address] [place], [place] [id number] Calcium [Mass/Vol] 9.9 mg/dL Normal 8.6-10.2 [facility] Administrative Judge Comment on above: Performed By: #### C MP, CBCAD, LIPD #### [facility] [address] [place], [place] [id number] Chloride [Moles/Vol] 106 mmol/L Normal 98-107 [facility] Comment on above: Performed By: #### C MP, CBCAD, LIPD #### [facility] [address] [place], [place] [id number] CO2 [Moles/Vol] 21 mmol/L Normal 20-31 [facility] Comment on above: Performed By: #### C MP, CBCAD, LIPD #### [facility] [address] [place], [place] [id number] Creatinine [Mass/Vol] 0.9 mg/dL Normal 0.6-1.4 [facility] Comment on above: Performed By: #### C MP, CBCAD, LIPD #### [facility] [address] [place], [place] [id number] eGFRAA 90 mL/min/1.73m2 Normal >60 [facility] Specialist Comment on above: Performed By: #### C MP, CBCAD, LIPD #### [facility] [address] [place], [place] [id number] eGFRNAA 74 mL/min/1.73m2 Normal >60 [facility] Comment on above: Performed By: #### C MP, CBCAD, LIPD #### [facility] [address] [place], [place] [id number] Globulin (S) [Mass/Vol] 2.5 g/dL Normal 1.9-3.7 [facility] Specialist Comment on above: Performed By: #### C MP, CBCAD, LIPD #### [facility] [address] [place], [place] [id number] Glucose [Mass/Vol] 127 mg/dL High 65-99 [facility] Administrative Judge Comment on above: Result Comment: For FASTING Glucose --- ADA reference ranges: Normal 65-99 mg/dl Prediabetes 100-125 Diabetes >/= 126 Performed By: #### C NORBERTO, CBCAD, LIPD #### [facility] [address] [place], [place] [id number] Potassium [Moles/Vol] 4.2 mmol/L Normal 3.5-5.5 [facility] Comment on above: Performed By: #### C MP, CBCAD, LIPD #### [facility] [address] [place], [place] [id number] Protein [Mass/Vol] 7.7 g/dL Normal 6.1-8.1 [facility] Specialist Comment on above: Performed By: #### C NORBERTO, CBCAD, LIPD #### [facility] [address] [place], [place] [id number] Sodium [Moles/Vol] 143 mmol/L Normal 135-146 [facility] Administrative Judge Comment on above: Performed By: #### C MP, CBCAD, LIPD #### [facility] [address] [place], [place] [id number] TBIL <0.3 Normal [facility] Comment on above: Performed By: #### C NORBERTO, CBCAD, LIPD #### [facility] [address] [place], [place] [id number] Urea nitrogen [Mass/Vol] 8 mg/dL Normal 7-25 [facility] Specialist Comment on above: Performed By: #### C MP, CBCAD, LIPD #### [facility] [address] [place], [place] [id number] Hemoglobin A1Con 08-06-2021 EAG 99.67 Normal [facility] Specialist Comment on above: Performed By: #### A 1C #### [facility] [address] [place], [place] [id number] HbA1c (Bld) [Mass fraction] 5.1 % Normal 4.0-6.0 [facility] Specialist Comment on above: Performed By: #### A 1C #### [facility] [address] [place], [place] [id number] Lipid Panelon 08-06-2021 Cholesterol [Mass/Vol] 190 mg/dL Normal 125-200 [facility] above: Result Comment: Low risk < 200mg/dL Borderline risk 201-239 mg/dl High risk > or equal to 240 Performed By: #### C NORBERTO, CBCAD, LIPD #### [facility] [address] [place], [place] [id number] Cholesterol in HDL [Mass/Vol] 64 mg/dL Normal >40 [facility] Specialist Comment on above: Result Comment: High Cardiovascular Risk HDL <40 mg/dL Low Cardiovascular Risk HDL > or equal to 60 mg/dl Performed By: #### C NORBERTO, CBCAD, LIPD #### [facility] [address] [place], [place] [id number] Cholesterol in LDL [Mass/Vol] 107 mg/dL Normal [facility] Comment on above: Result Comment: LDL ATP III CLASSIFICATION LDL less than 100 mg/dl Optimal LDL 100-129 mg/dl Near or above optimal LDL 130-159 Borderline high LDL 160-189 High LDL greater than 189 mg/dl Very High Performed By: #### C NORBERTO, CBCAD, LIPD #### [facility] [address] [place], [place] [id number] Cholesterol in VLDL [Mass/Vol] 19 mg/dL Normal [facility] Specialist Comment on above: Performed By: #### C NORBERTO, CBCAD, LIPD #### [facility] [address] [place], [place] [id number] Cholesterol.total/Chol esterol in HDL [Mass ratio] 3 {ratio} Normal [facility] Comment on above: Performed By: #### C NORBERTO, CBCAD, LIPD #### [facility] [address] [place], [place] [id number] Triglyceride [Mass/Vol] 95 mg/dL Normal 30-150 [facility] Specialist Comment on above: Result Comment: TRIG ATPIII CLASSIFICATIONS TRIG less than 150 mg/dl Normal TRIG 150-199 mg/dl Borderline High TRIG 200-500 mg/dl High TRIG greather than 500 mg/dl Very High Performed By: #### C NORBERTO, CBCAD, LIPD #### [facility] [address] [place], [place] [id number] Q - CULTURE,URINE,ROUTINEon 06-04-2021 CULTURE, URINE, ROUTINE SEE NOTE Normal [facility] Administrative Judge Comment on above: Order Comment: [facility] performed at: QPT, [facility], [address], [address] [place], [address], Environmental Conservation Professor: Tim Dotson MD [facility] Collection Date/Time: [facility] Results Received Date/Time: [id number] [facility] Reported Date/Time: [id number] Result Comment: CULT URE, URINE, ROUTINE Micro Number: [id number] Test Status: Final Specimen Source: Not given Specimen Quality: Adequate Result: Mixed genital marie isolated. These superficial bacteria are not indicative of a urinary tract infection. No further organism identification is warranted on this specimen. If clinically indicated, recollect clean-catch, mid-stream urine and transfer immediately to Urine Culture Transport Tube. Performed By: #### [id number] #### [facility] [address] [place] [id number] MRI LUMBAR SPINE WO CONTRAST on 11-06-2018 [...] Naren Lagos MD 11/06/18 Final result Normal [facility] Vital Signs Date Time Vital Sign Value Performing Clinician Facility 09-04-2024 16:21-0400 Body height 157.5 cm Milton Adryanbran DPM FACFAS Work Phone: [facility] 09-04-2024 16:21-0400 Body mass index (BMI) [Ratio] 33.65 kg/m2 Milton Adryanbran DPM FACFAS Work Phone: [facility] 09-04-2024 16:21-0400 Body weight 83.46 kg Milton Adryanbran DPM FACFAS Work Phone: [facility] 09-04-2024 16:21-0400 Diastolic blood pressure 80 mm[Hg] Milton Juno DPM FACFAS Work Phone: [facility] 09-04-2024 16:21-0400 Heart rate 87 /min Milton Juno DPM FACFAS Work Phone: [facility] 09-04-2024 16:21-0400 Systolic blood pressure 131 mm[Hg] Milton Juno DPM FACFAS Work Phone: [facility] 09-02-2024 15:13-0400 Body height 157.5 cm Giovani Hagen MD Work Phone: [facility] 09-02-2024 15:13-0400 Body mass index (BMI) [Ratio] 33.65 kg/m2 Giovani Hagen MD Work Phone: [facility] 09-02-2024 15:13-0400 Body weight 83.46 kg Giovani Hagen MD Work Phone: [facility] 09-02-2024 15:13-0400 Diastolic blood pressure 82 mm[Hg] Giovani Hagen MD Work Phone: [facility] 09-02-2024 15:13-0400 Heart rate 113 /min Giovani Hagen MD Work Phone: [facility] 09-02-2024 15:13-0400 SaO2% (BldA) [Mass fraction] 97 % Giovani Hagen MD Work Phone: [facility] 09-02-2024 15:13-0400 Systolic blood pressure 132 mm[Hg] Giovani Hagen MD Work Phone: [facility] 08-21-2024 16:14-0400 Body height 157.5 cm Milton Juno DPM FACFAS Work Phone: [facility] 08-21-2024 16:14-0400 Body mass index (BMI) [Ratio] 34.2 kg/m2 Milton Juno DPM FACFAS Work Phone: [facility] 08-21-2024 16:14-0400 Body weight 84.82 kg Milton Juno DPM FACFAS Work Phone: [facility] 08-21-2024 16:14-0400 Diastolic blood pressure 80 mm[Hg] Milton Fraire DPM FACFAS Work Phone: [facility] 08-21-2024 16:14-0400 Heart rate 80 /min Milton Fraire DPM FACFAS Work Phone: [facility] 08-21-2024 16:14-0400 Systolic blood pressure 127 mm[Hg] Milton Fraire DPM FACFAS Work Phone: [facility] 08-19-2024 08:48-0400 Body weight 77.11 kg Giovani Hagen MD Work Phone: [facility] 08-19-2024 07:30-0400 Body temperature 98.1 [degF] Giovani Hagen MD Work Phone: [facility] 08-19-2024 07:30-0400 Diastolic blood pressure 75 mm[Hg] Giovani Hagen MD Work Phone: [facility] 08-19-2024 07:30-0400 Heart rate 85 /min Giovani Hagen MD Work Phone: [facility] 08-19-2024 07:30-0400 Respiratory rate 18 /min Giovani Hagen MD Work Phone: [facility] 08-19-2024 07:30-0400 SaO2% (BldA) [Mass fraction] 97 % Giovani Hagen MD Work Phone: [facility] 08-19-2024 07:30-0400 Systolic blood pressure 114 mm[Hg] Giovani Hagen MD Work Phone: [facility] 08-16-2024 17:29-0400 Body height 157.48 cm Giovani Hagen MD Work Phone: [facility] 08-14-2024 16:39-0400 Body height 157.5 cm Milotn Fraire DPM FACFAS Work Phone: [facility] 08-14-2024 16:39-0400 Body mass index (BMI) [Ratio] 34.2 kg/m2 Milton Fraire DPM FACFAS Work Phone: [facility] 08-14-2024 16:39-0400 Body weight 84.82 kg Milton Fraire DPM FACFAS Work Phone: [facility] 08-14-2024 16:39-0400 Diastolic blood pressure 80 mm[Hg] Milton Fraire DPM FACFAS Work Phone: [facility] 08-14-2024 16:39-0400 Heart rate 82 /min Milton Fraire DPM FACFAS Work Phone: [facility] 08-14-2024 16:39-0400 Systolic blood pressure 125 mm[Hg] Milton Fraire DPM FACFAS Work Phone: [facility] 08-13-2024 14:57-0400 Body height 160 cm Solo Mora MD Work Phone: [facility] 08-13-2024 14:57-0400 Body mass index (BMI) [Ratio] 31.89 kg/m2 Solo Mora MD Work Phone: [facility] 08-13-2024 14:57-0400 Body weight 81.65 kg Solo Mora MD Work Phone: [facility] 08-13-2024 14:57-0400 Diastolic blood pressure 96 mm[Hg] Solo Mora MD Work Phone: [facility] 08-13-2024 14:57-0400 Heart rate 92 /min Solo Mora MD Work Phone: [facility] 08-13-2024 14:57-0400 Systolic blood pressure 140 mm[Hg] Solo Mora MD Work Phone: [facility] 08-01-2024 14:31-0400 Body height 157.5 cm Giovani Hagen MD Work Phone: [facility] 08-01-2024 14:31-0400 Body mass index (BMI) [Ratio] 34.2 kg/m2 Giovani Hagen MD Work Phone: [facility] 08-01-2024 14:31-0400 Body weight 84.82 kg Giovani Hagen MD Work Phone: [facility] 08-01-2024 14:31-0400 Diastolic blood pressure 82 mm[Hg] Giovani Hagen MD Work Phone: [facility] 08-01-2024 14:31-0400 Heart rate 85 /min Giovani Hagen MD Work Phone: [facility] 08-01-2024 14:31-0400 SaO2% (BldA) [Mass fraction] 100 % Giovani Hagen MD Work Phone: [facility] 08-01-2024 14:31-0400 Systolic blood pressure 124 mm[Hg] Giovani Hagen MD Work Phone: [facility] 07-24-2024 16:04-0400 Body height 157.5 cm Milton Fraire DPM FACFAS Work Phone: [facility] 07-24-2024 16:04-0400 Body mass index (BMI) [Ratio] 34.75 kg/m2 Milton Corneliusce DPM FACFAS Work Phone: [facility] 07-24-2024 16:04-0400 Body weight 86.18 kg Milton Corneliusce DPM FACFAS Work Phone: [facility] 07-24-2024 16:04-0400 Diastolic blood pressure 88 mm[Hg] Milton Adryanbran DPM FACFAS Work Phone: [facility] 07-24-2024 16:04-0400 Heart rate 109 /min Milton Fraire DPM FACFAS Work Phone: [facility] 07-24-2024 16:04-0400 Systolic blood pressure 132 mm[Hg] Milton Fraire DPM FACFAS Work Phone: [facility] 07-10-2024 09:45-0400 Body height 158.8 cm Javy Boudreaux MD Work Phone: [facility] 07-10-2024 09:45-0400 Body mass index (BMI) [Ratio] 34.2 kg/m2 Javy Boudreaux MD Work Phone: [facility] 07-10-2024 09:45-0400 Body weight 86.18 kg Javy Boudreaux MD Work Phone: [facility] 07-10-2024 09:45-0400 Diastolic blood pressure 90 mm[Hg] Javy Boudreaux MD Work Phone: [facility] 07-10-2024 09:45-0400 Heart rate 108 /min Javy Boudreaux MD Work Phone: [facility] 07-10-2024 09:45-0400 Systolic blood pressure 131 mm[Hg] Javy Boudreaux MD Work Phone: [facility] 07-04-2024 15:30-0400 Body height 157.5 cm Giovani Hagen MD Work Phone: [facility] 07-04-2024 15:30-0400 Body mass index (BMI) [Ratio] 34.75 kg/m2 Giovani Hagen MD Work Phone: [facility] 07-04-2024 15:30-0400 Body weight 86.18 kg Giovani Hagen MD Work Phone: [facility] 07-04-2024 15:30-0400 Diastolic blood pressure 88 mm[Hg] Giovani Hagen MD Work Phone: [facility] 07-04-2024 15:30-0400 Heart rate 109 /min Giovani Hagen MD Work Phone: [facility] 07-04-2024 15:30-0400 SaO2% (BldA) [Mass fraction] 98 % Giovani Hagen MD Work Phone: [facility] 07-04-2024 15:30-0400 Systolic blood pressure 132 mm[Hg] Giovani Hagen MD Work Phone: [facility] 07-03-2024 14:55-0400 Body height 157.5 cm Milton Dolce DPM FACFAS Work Phone: [facility] 07-03-2024 14:55-0400 Body mass index (BMI) [Ratio] 34.93 kg/m2 Milton Dolce DPM FACFAS Work Phone: [facility] 07-03-2024 14:55-0400 Body weight 86.64 kg Milton Dolce DPM FACFAS Work Phone: [facility] 07-03-2024 14:55-0400 Diastolic blood pressure 79 mm[Hg] Milton Dolce DPM FACFAS Work Phone: [facility] 07-03-2024 14:55-0400 Heart rate 88 /min Milton Dolce DPM FACFAS Work Phone: [facility] 07-03-2024 14:55-0400 Systolic blood pressure 132 mm[Hg] Milton Dolce DPM FACFAS Work Phone: [facility] 06-26-2024 15:00-0500 Body height 157.5 cm Milton Dolce DPM FACFAS Work Phone: [facility] 06-26-2024 15:00-0500 Body mass index (BMI) [Ratio] 34.93 kg/m2 Milton Dolce DPM FACFAS Work Phone: [facility] 06-26-2024 15:00-0500 Body weight 86.64 kg Milton Dolce DPM FACFAS Work Phone: [facility] 06-26-2024 15:00-0500 Diastolic blood pressure 79 mm[Hg] Milton Fraire DPM FACFAS Work Phone: [facility] 06-26-2024 15:00-0500 Heart rate 88 /min Milton Fraire DPM FACFAS Work Phone: [facility] 06-26-2024 15:00-0500 Systolic blood pressure 132 mm[Hg] Milton Fraire DPM FACFAS Work Phone: [facility] 06-25-2024 14:38-0500 Body mass index (BMI) [Ratio] 34.9 kg/m2 Darwin Matty DO Work Phone: [facility] 06-25-2024 14:38-0500 Body weight 86.55 kg Darwin Matty DO Work Phone: [facility] 06-25-2024 14:38-0500 Diastolic blood pressure 78 mm[Hg] Darwin Matty DO Work Phone: [facility] 06-25-2024 14:38-0500 Systolic blood pressure 130 mm[Hg] Darwin Matty DO Work Phone: [facility] 06-19-2024 14:37-0500 Body height 157.5 cm Prateek Pedraza DPM Work Phone: [facility] 06-19-2024 14:37-0500 Body mass index (BMI) [Ratio] 35.85 kg/m2 Prateek Pedraza DPM Work Phone: [facility] 06-19-2024 14:37-0500 Body weight 88.91 kg Prateek Pedraza DPM Work Phone: [facility] 06-19-2024 14:37-0500 Respiratory rate 18 /min Prateek Pedraza DPM Work Phone: [facility] 06-06-2024 15:42-0500 Body height 157.5 cm Giovani Hagen MD Work Phone: [facility] 06-06-2024 15:42-0500 Body mass index (BMI) [Ratio] 35.85 kg/m2 Giovani Hagen MD Work Phone: [facility] 06-06-2024 15:42-0500 Body weight 88.91 kg Giovani Hagen MD Work Phone: [facility] 06-06-2024 15:42-0500 Diastolic blood pressure 82 mm[Hg] Giovani Hagen MD Work Phone: [facility] 06-06-2024 15:42-0500 Heart rate 96 /min Giovani Hagen MD Work Phone: [facility] 06-06-2024 15:42-0500 SaO2% (BldA) [Mass fraction] 99 % Giovani Hagen MD Work Phone: [facility] 06-06-2024 15:42-0500 Systolic blood pressure 118 mm[Hg] Giovani Hagen MD Work Phone: [facility] 05-29-2024 13:49-0500 Body mass index (BMI) [Ratio] 35.81 kg/m2 Ayleen JUSTICE Work Phone: [facility] 05-29-2024 13:49-0500 Body weight 88.81 kg Ayleen Krishnamurthy PA Work Phone: [facility] 05-29-2024 13:49-0500 Diastolic blood pressure 76 mm[Hg] Ayleen Krishnamurthy PA Work Phone: [facility] 05-29-2024 13:49-0500 Systolic blood pressure 122 mm[Hg] Ayleen Krishnamurthy PA Work Phone: [facility] 05-22-2024 14:30-0500 Diastolic blood pressure 92 mm[Hg] Carol Wnin MD Work Phone: [facility] 05-22-2024 14:30-0500 Heart rate 102 /min Carol Winn MD Work Phone: [facility] 05-22-2024 14:30-0500 Respiratory rate 21 /min Carol Winn MD Work Phone: [facility] 05-22-2024 14:30-0500 SaO2% (BldA) [Mass fraction] 100 % Carol Winn MD Work Phone: [facility] 05-22-2024 14:30-0500 Systolic blood pressure 133 mm[Hg] Carol Winn MD Work Phone: [facility] 05-22-2024 13:40-0500 Body height 157.5 cm Carol Winn MD Work Phone: [facility] 05-22-2024 13:40-0500 Body mass index (BMI) [Ratio] 33.84 kg/m2 Carol Winn MD Work Phone: [facility] 05-22-2024 13:40-0500 Body weight 83.92 kg Carol Winn MD Work Phone: [facility] 05-15-2024 08:50-0500 Body height 157.5 cm Milton Fraire DPM FACFAS Work Phone: [facility] 05-15-2024 08:50-0500 Body mass index (BMI) [Ratio] 36.21 kg/m2 Milton Dolce DPM FACFAS Work Phone: [facility] 05-15-2024 08:50-0500 Body weight 89.81 kg Milton Corneliusce DPM FACFAS Work Phone: [facility] 05-15-2024 08:50-0500 Diastolic blood pressure 82 mm[Hg] Milton Fraire DPM FACFAS Work Phone: [facility] 05-15-2024 08:50-0500 Heart rate 92 /min Milton Corneliusce DPM FACFAS Work Phone: [facility] 05-15-2024 08:50-0500 Systolic blood pressure 132 mm[Hg] Milton Fraire DPM FACFAS Work Phone: [facility] 05-09-2024 14:55-0500 Body height 157.5 cm Giovani Hagen MD Work Phone: [facility] 05-09-2024 14:55-0500 Body mass index (BMI) [Ratio] 36.21 kg/m2 Giovani Hagen MD Work Phone: [facility] 05-09-2024 14:55-0500 Body weight 89.81 kg Giovani Hagen MD Work Phone: [facility] 05-09-2024 14:55-0500 Diastolic blood pressure 88 mm[Hg] Giovani Hagen MD Work Phone: [facility] 05-09-2024 14:55-0500 Heart rate 101 /min Giovani Hagen MD Work Phone: [facility] 05-09-2024 14:55-0500 SaO2% (BldA) [Mass fraction] 96 % Giovani Hagen MD Work Phone: [facility] 05-09-2024 14:55-0500 Systolic blood pressure 134 mm[Hg] Giovani Hagen MD Work Phone: [facility] 05-08-2024 15:13-0500 Body height 157.5 cm Prateek Pedraza DPM Work Phone: [facility] 05-08-2024 15:13-0500 Body mass index (BMI) [Ratio] 35.3 kg/m2 Prateek Pedraza DPM Work Phone: [facility] 05-08-2024 15:13-0500 Body weight 87.54 kg Prateek Pedraza DPM Work Phone: [facility] 05-08-2024 15:13-0500 Respiratory rate 18 /min Prateek Pedraza DPM Work Phone: [facility] 04-30-2024 15:10-0500 Body mass index (BMI) [Ratio] 35.12 kg/m2 Darwin Matty DO Work Phone: [facility] 04-30-2024 15:10-0500 Body weight 87.09 kg Darwin Matty DO Work Phone: [facility] 04-30-2024 15:10-0500 Diastolic blood pressure 74 mm[Hg] Darwin Matty DO Work Phone: [facility] 04-30-2024 15:10-0500 Systolic blood pressure 122 mm[Hg] Darwin Matty DO Work Phone: [facility] 04-26-2024 14:12-0500 Body mass index (BMI) [Ratio] 33.87 kg/m2 Iliana Yacapraro PA-C Work Phone: [facility] 04-26-2024 14:12-0500 Body weight 84 kg Iliana Yacapraro PA-C Work Phone: [facility] 04-26-2024 14:12-0500 Diastolic blood pressure 92 mm[Hg] Iliana Yacapraro PA-C Work Phone: [facility] 04-26-2024 14:12-0500 Heart rate 84 /min Iliana Yacapraro PA-C Work Phone: [facility] 04-26-2024 14:12-0500 Systolic blood pressure 133 mm[Hg] Iliana Yacapraro PA-C Work Phone: [facility] 04-18-2024 16:42-0500 Body mass index (BMI) [Ratio] 35.67 kg/m2 Josephine Gilman VISOR INSTALLER Work Phone: [facility] 04-18-2024 16:42-0500 Body temperature 97.7 [degF] Josephine Gilman VISOR INSTALLER Work Phone: [facility] 04-18-2024 16:42-0500 Body weight 88.45 kg Josephine Gilman VISOR INSTALLER Work Phone: [facility] 04-18-2024 16:42-0500 Diastolic blood pressure 82 mm[Hg] Josephine Gilman VISOR INSTALLER Work Phone: [facility] 04-18-2024 16:42-0500 Heart rate 112 /min Josephine Gilman VISOR INSTALLER Work Phone: [facility] Comment on above: repeat pulse 96bpm apical. 04-18-2024 16:42-0500 Respiratory rate 20 /min Josephine Kalina VISOR INSTALLER Work Phone: [facility] 04-18-2024 16:42-0500 SaO2% (BldA) [Mass fraction] 97 % Josephine Umucharrodney VISOR INSTALLER Work Phone: [facility] 04-18-2024 16:42-0500 Systolic blood pressure 128 mm[Hg] Josephine Kalina VISOR INSTALLER Work Phone: [facility] 04-03-2024 10:39-0500 Body height 157.5 cm Deena Lyn VISOR INSTALLER Work Phone: [facility] 04-03-2024 10:39-0500 Body mass index (BMI) [Ratio] 35.01 kg/m2 Deena Dialvely VISOR INSTALLER Work Phone: [facility] 04-03-2024 10:39-0500 Body weight 86.82 kg Deena Lyn VISOR INSTALLER Work Phone: [facility] 04-03-2024 10:39-0500 Diastolic blood pressure 82 mm[Hg] Deena Devon VISOR INSTALLER Work Phone: [facility] 04-03-2024 10:39-0500 Heart rate 101 /min Deena Devon VISOR INSTALLER Work Phone: [facility] 04-03-2024 10:39-0500 Respiratory rate 16 /min Deena Devon VISOR INSTALLER Work Phone: [facility] 04-03-2024 10:39-0500 SaO2% (BldA) [Mass fraction] 99 % Deena Devon VISOR INSTALLER Work Phone: [facility] 04-03-2024 10:39-0500 Systolic blood pressure 122 mm[Hg] Deena Alberta VISOR INSTALLER Work Phone: [facility] 04-01-2024 08:40-0500 Body height 157.5 cm Giovani Hagen MD Work Phone: [facility] 04-01-2024 08:40-0500 Body mass index (BMI) [Ratio] 34.39 kg/m2 Giovani Hagen MD Work Phone: [facility] 04-01-2024 08:40-0500 Body weight 85.28 kg Giovani Hagen MD Work Phone: [facility] 04-01-2024 08:40-0500 Diastolic blood pressure 88 mm[Hg] Giovani Hagen MD Work Phone: [facility] 04-01-2024 08:40-0500 Heart rate 88 /min Giovani Hagen MD Work Phone: [facility] 04-01-2024 08:40-0500 SaO2% (BldA) [Mass fraction] 94 % Giovani Hagen MD Work Phone: [facility] 04-01-2024 08:40-0500 Systolic blood pressure 132 mm[Hg] Giovani Hagen MD Work Phone: [facility] 03-20-2024 16:29-0500 Body mass index (BMI) [Ratio] 34.93 kg/m2 Darwin Matty DO Work Phone: [facility] 03-20-2024 16:29-0500 Body weight 86.64 kg Darwin Matty DO Work Phone: [facility] 03-20-2024 16:29-0500 Diastolic blood pressure 72 mm[Hg] Darwin Matty DO Work Phone: [facility] 03-20-2024 16:29-0500 Systolic blood pressure 118 mm[Hg] Darwin Matty DO Work Phone: [facility] 02-06-2024 09:14-0400 Body height 157.5 cm Giovani Hagen MD Work Phone: [facility] 02-06-2024 09:14-0400 Body mass index (BMI) [Ratio] 34.93 kg/m2 Giovani Hagen MD Work Phone: [facility] 02-06-2024 09:14-0400 Body weight 86.64 kg Giovani Hagen MD Work Phone: [facility] 02-06-2024 09:14-0400 Diastolic blood pressure 88 mm[Hg] Giovani Hagen MD Work Phone: [facility] 02-06-2024 09:14-0400 Heart rate 106 /min Giovani Hagen MD Work Phone: [facility] 02-06-2024 09:14-0400 SaO2% (BldA) [Mass fraction] 99 % Giovani Hagen MD Work Phone: [facility] 02-06-2024 09:14-0400 Systolic blood pressure 130 mm[Hg] Giovani Hagen MD Work Phone: [facility] 01-22-2024 13:37-0400 Diastolic blood pressure 74 mm[Hg] Darwin Matty DO Work Phone: [facility] 01-22-2024 13:37-0400 Systolic blood pressure 112 mm[Hg] Darwin Matty DO Work Phone: [facility] 01-09-2024 16:00-0400 Body height 157.5 cm Giovani Hagen MD Work Phone: [facility] 01-09-2024 16:00-0400 Body mass index (BMI) [Ratio] 34.75 kg/m2 Giovani Hagen MD Work Phone: [facility] 01-09-2024 16:00-0400 Body weight 86.18 kg Giovani Hagen MD Work Phone: [facility] 01-09-2024 16:00-0400 Diastolic blood pressure 84 mm[Hg] Giovani Hagen MD Work Phone: [facility] 01-09-2024 16:00-0400 Heart rate 96 /min Giovani Hagen MD Work Phone: [facility] 01-09-2024 16:00-0400 SaO2% (BldA) [Mass fraction] 98 % Giovani Hagen MD Work Phone: [facility] 01-09-2024 16:00-0400 Systolic blood pressure 124 mm[Hg] Giovani Hagen MD Work Phone: [facility] 12-28-2023 15:17-0400 Blood Pressure Location BHAVESH DEJESUS [facility] 12-28-2023 15:17-0400 Diastolic blood pressure 100 mm[Hg] BHAVESH DEJESUS [facility] 12-28-2023 15:17-0400 Heart rate 101 /min BHAVESH DEJESUS [facility] 12-28-2023 15:17-0400 Respiratory rate 18 /min BHAVESH DEJESUS [facility] 12-28-2023 15:17-0400 Systolic blood pressure 146 mm[Hg] BHAVESH DEJESUS [facility] 12-26-2023 15:07-0400 Body height 157.5 cm Giovani Hagen MD Work Phone: [facility] 12-26-2023 15:07-0400 Body mass index (BMI) [Ratio] 34.2 kg/m2 Giovani Hagen MD Work Phone: [facility] 12-26-2023 15:07-0400 Body weight 84.82 kg Giovani Hagen MD Work Phone: [facility] 12-26-2023 15:07-0400 Diastolic blood pressure 78 mm[Hg] Giovani Hagen MD Work Phone: [facility] 12-26-2023 15:07-0400 Heart rate 98 /min Giovani Hagen MD Work Phone: [facility] 12-26-2023 15:07-0400 SaO2% (BldA) [Mass fraction] 98 % Giovani Hagen MD Work Phone: [facility] 12-26-2023 15:07-0400 Systolic blood pressure 112 mm[Hg] Giovani Hagen MD Work Phone: [facility] 12-19-2023 15:01-0400 Body height 157.5 cm Solo Mora MD Work Phone: [facility] 12-19-2023 15:01-0400 Body mass index (BMI) [Ratio] 34.39 kg/m2 Solo Mora MD Work Phone: [facility] 12-19-2023 15:01-0400 Body weight 85.28 kg Solo Mora MD Work Phone: [facility] 12-19-2023 15:01-0400 Diastolic blood pressure 91 mm[Hg] Solo Mora MD Work Phone: [facility] 12-19-2023 15:01-0400 Heart rate 94 /min Solo Mora MD Work Phone: [facility] 12-19-2023 15:01-0400 Systolic blood pressure 127 mm[Hg] Solo Mora MD Work Phone: [facility] 11-02-2022 13:10-0400 Body height 157.5 cm Samuel Freeman MD Work Phone: [facility] 11-02-2022 13:10-0400 Body weight 71 kg Samuel Freeman MD Work Phone: [facility] 11-02-2022 13:10-0400 Diastolic blood pressure 97 mm[Hg] Samuel Freeman MD Work Phone: [facility] 11-02-2022 13:10-0400 Heart rate 100 /min Samuel Freeman MD Work Phone: [facility] 11-02-2022 13:10-0400 Systolic blood pressure 141 mm[Hg] Samuel Freeman MD Work Phone: [facility] 08-31-2022 15:30-0400 Diastolic blood pressure 91 mm[Hg] Carol Winn MD Work Phone: [facility] 08-31-2022 15:30-0400 Heart rate 99 /min Carol Winn MD Work Phone: [facility] 08-31-2022 15:30-0400 Respiratory rate 24 /min Carol Winn MD Work Phone: [facility] 08-31-2022 15:30-0400 SaO2% (BldA) [Mass fraction] 97 % Carol Winn MD Work Phone: [facility] 08-31-2022 15:30-0400 Systolic blood pressure 140 mm[Hg] Carol Winn MD Work Phone: [facility] 08-31-2022 14:10-0400 Body height 157.5 cm Carol Winn MD Work Phone: [facility] 08-31-2022 14:10-0400 Body mass index (BMI) [Ratio] 33.84 kg/m2 Carol Winn MD Work Phone: [facility] 08-31-2022 14:10-0400 Body weight 83.92 kg Carol Winn MD Work Phone: [facility] 06-30-2022 12:40-0500 Diastolic blood pressure 85 mm[Hg] Carol Winn MD Work Phone: [facility] 06-30-2022 12:40-0500 Heart rate 70 /min Carol Winn MD Work Phone: [facility] 06-30-2022 12:40-0500 Respiratory rate 12 /min Carol Winn MD Work Phone: [facility] 06-30-2022 12:40-0500 SaO2% (BldA) [Mass fraction] 100 % Carol Winn MD Work Phone: [facility] 06-30-2022 12:40-0500 Systolic blood pressure 120 mm[Hg] Carol Winn MD Work Phone: [facility] 06-30-2022 11:18-0500 Body height 157.5 cm Carol Winn MD Work Phone: [facility] 06-30-2022 11:18-0500 Body mass index (BMI) [Ratio] 33.84 kg/m2 Carol Winn MD Work Phone: [facility] 06-30-2022 11:18-0500 Body weight 83.92 kg Carol Winn MD Work Phone: [facility] 05-27-2022 11:29-0500 Body weight 85.73 kg Carol Winn MD Work Phone: [facility] 05-27-2022 11:29-0500 Diastolic blood pressure 92 mm[Hg] Carol Winn MD Work Phone: [facility] 05-27-2022 11:29-0500 Heart rate 102 /min Carol Winn MD Work Phone: [facility] 05-27-2022 11:29-0500 Systolic blood pressure 145 mm[Hg] Carol Winn MD Work Phone: [facility] 05-03-2022 15:30-0500 Body height 158.75 cm Imad Asaad Other [employer] Other 05-03-2022 15:30-0500 Body mass index (BMI) [Ratio] 34.55 kg/m2 Imad Asaad Other [employer] Other 05-03-2022 15:30-0500 Body weight 87.09 kg Imad Asaad Other [employer] Other 05-03-2022 15:30-0500 Diastolic blood pressure 91 mm[Hg] Imad Asaad Other [employer] Other 05-03-2022 15:30-0500 Systolic blood pressure 130 mm[Hg] Imad Gavinad Other [employer] Other 05-03-2022 14:47-0500 Body weight 0 kg MD Giovani Hagen Work Phone: [facility] Encounters Encounter Date Encounter Type Care Provider Facility Start: 12-30-2024 ambulatory Madhuri Aroldo DANICA Facility:[facility] Start: 09-04-2024 End: 09-04-2024 Office outpatient visit 15 minutes Milton D Dolce DPM FACFAS Work Phone: [facility] Comment on above: Sprain of anterior talofibular ligament of right ankle, subsequent encounter (Primary Dx); Right ankle instability Start: 09-04-2024 End: 09-04-2024 ambulatory MILTON D DOLCE Not Available Start: 09-02-2024 End: 09-02-2024 Office outpatient visit 25 minutes Giovani Hagen MD Work Phone: [facility] Comment on above: Mood swings (Primary Dx); Bipolar disorder, in partial remission, most recent episode manic (CMS/HCC); Anxiety; Sinus tachycardia Start: 09-02-2024 End: 09-02-2024 ambulatory GIOVANI HAGEN Not Available Start: 08-28-2024 End: 08-29-2024 Refill Giovani Hagen MD Work Phone: [facility] Comment on above: Attention deficit hyperactivity disorder (ADHD), predominantly inattentive type (CMS/HCC); Bipolar disorder, in partial remission, most recent episode manic (CMS/HCC); 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CMS/HCC) Obesity (BMI 35.0-39 .9 without comorbidity) Start: 08-21-2024 End: 08-21-2024 ambulatory MILTON D DOLCE Not Available Start: 08-21-2024 End: 08-21-2024 Office outpatient visit 15 minutes Milton D Dolce DPM FACFAS Work Phone: [facility] Comment on above: Sprain of anterior talofibular ligament of right ankle, subsequent encounter (Primary Dx) Start: 08-21-2024 End: 08-21-2024 Bamboo flowsheet Milton D Dolce DPM FACFAS Work Phone: [facility] Start: 08-21-2024 End: 08-21-2024 Bamboo flowsheet Milton D Dolce DPM FACFAS Work Phone: [facility] Start: 08-17-2024 Non-patient / Non-visit Giovani Hagen MD Work Phone: [facility] Work Phone: Start: 08-16-2024 End: 08-19-2024 Evaluation and management of inpatient Giovani Hagen MD Work Phone: [facility] Work Phone: Start: 08-14-2024 End: 08-14-2024 ambulatory MILTON D DOLCE Not Available Start: 08-14-2024 End: 08-14-2024 Office outpatient visit 25 minutes Milton D Dolce DPM FACFAS Work Phone: [facility] Comment on above: Contusion of right ankle, initial encoun ter (Primary Dx); Peroneal tendon tear, right, initial encounter Start: 08-14-2024 End: 08-14-2024 Bamboo flowsheet Milton D Dolce DPM FACFAS Work Phone: [facility] Start: 08-14-2024 End: 08-14-2024 Bamboo flowsheet Milton D Dolce DPM FACFAS Work Phone: [facility] Start: 08-13-2024 End: 08-13-2024 Patient encounter procedure Solo Mora MD Work Phone: Cardiology Comment on above: Palpitation (Primary Dx) Start: 08-13-2024 End: 08-13-2024 ambulatory [facility] Facility:[facility] Start: 08-13-2024 End: 08-13-2024 [facility] Start: 08-13-2024 ambulatory SOLO MORA Facility:[facility] Start: 08-01-2024 End: 08-01-2024 Office outpatient visit 25 minutes Giovani Hagen MD Work Phone: [facility] Comment on above: 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CMS/HCC) (Primary Dx); Anxiety; PTSD (post-traumatic stress disorder) (CMS/HCC); 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CMS/HCC) Start: 08-01-2024 End: 08-01-2024 ambulatory GIOVANI HAGEN Not Available Start: 07-31-2024 End: 08-01-2024 Refill Giovani Hagen MD Work Phone: [facility] Comment on above: Anxiety; PTSD (post-traumatic stress disorder) (CMS/HCC) Start: 07-24-2024 End: 07-24-2024 ambulatory MILTON FRAIRE Not Available Start: 07-24-2024 End: 07-24-2024 Patient encounter procedure Milton Fraire DPM FACFAS Work Phone: [facility] Comment on above: Peroneal tendon tear, right, initial enc ounter (Primary Dx); Right ankle instability; Contracture of right ankle Start: 07-10-2024 End: 09-05-2024 E-mail encounter from caregiver [facility] Provider Gynecology Start: 07-10-2024 End: 07-10-2024 Subsequent hospital visit by physician Barbara Med Bl Work Phone: Radiology Comment on above: Chronic idiopathic constipation [K59.04] Start: 07-10-2024 End: 07-10-2024 ambulatory Breakdown Worker [facility] Work Phone: Obstetrics/Gynecology Start: 07-10-2024 End: 09-05-2024 Patient encounter procedure Javy Boudreaux MD Work Phone: CB/Gynecology Comment on above: Other specified dyspareunia (Primary Dx) ; Pelvic pain in female Consult to Chronic P elvic Pain program Start: 07-04-2024 End: 07-04-2024 Office outpatient visit 25 minutes Giovani Hagen MD Work Phone: [facility] Comment on above: Anxiety (Primary Dx); Generalized idiopathic epilepsy and epileptic syndromes, not intractable, 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); 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CMS/HCC); PTSD (post-traumatic stress disorder) ([facility]) Start: 07-04-2024 End: 07-04-2024 ambulatory GIOVANI HAGEN Not Available Start: 07-03-2024 End: 07-03-2024 ambulatory MILTON FRAIRE Not Available Start: 07-03-2024 End: 07-03-2024 Patient encounter procedure Milton Chika Dolce DPM FACFAS Work Phone: [facility] Comment on above: Peroneal tendon tear, right, initial enc ounter (Primary Dx); Right foot pain Start: 07-03-2024 End: 07-03-2024 Bamboo flowsheet Milton D Dolce DPM FACFAS Work Phone: [facility] Start: 07-03-2024 End: 07-03-2024 Bamboo flowsheet Milton D Dolce DPM FACFAS Work Phone: [facility] Start: 06-26-2024 End: 06-26-2024 ambulatory MILTON FRAIRE Not Available Start: 06-26-2024 End: 06-26-2024 Patient encounter procedure Milton D Dolce DPM FACFAS Work Phone: [facility] Comment on above: Peroneal tendon tear, right, initial enc ounter (Primary Dx); Right ankle instability Start: 06-26-2024 End: 06-26-2024 Bamboo flowsheet Milton D Dolce DPM FACFAS Work Phone: [facility] Start: 06-26-2024 End: 06-26-2024 Bamboo flowsheet Milton D Dolce DPM FACFAS Work Phone: [facility] Start: 06-25-2024 End: 06-25-2024 Office outpatient visit 15 minutes Darwin Mcleodo DO Work Phone: [facility] [...] Work Phone: [facility] External Department Unsolicited Start: 06-19-2024 End: 06-19-2024 [...] [facility] Start: 06-18-2024 End: 06-19-2024 Michael Hammond PA Work Phone: [facility] [...] check Start: 05-29-2024 End: 05-29-2024 ambulatory AYLEEN KRISHNAMURTHY Not Available Start: 05-27-2024 End: 05-27-2024 Clinisync [...] (C diff) Start: 05-22-2024 End: 05-22-2024 ambulatory OBED SONIA Facility:[facility] Start: 05-22-2024 End: 05-22-2024 Clinisync Result [...] Start: 05-15-2024 End: 05-15-2024 Bamboo flowsheet Milton Chika Fraire DPM FACFAS Work Phone: [facility] Start: 05-15-2024 End: 05-15-2024 Office outpatient visit 25 minutes Milton Chika Fraire DPM FACFAS Work Phone: [facility] Comment on above: Peroneal tendon tear, right, initial enc ounter (Primary Dx); Right foot pain; Sprain of anterior talofibular ligament of right ankle, subsequent encounter; Osteochondritis dissecans of ankle, right; Right ankle instability Start: 05-15-2024 End: 05-15-2024 ambulatory MILTON FRAIRE Not Available Start: 05-14-2024 End: 05-14-2024 Transcribe Orders Rosario Mcconnell MD Work Phone: [facility] Comment on above: ENGLISH (nonalcoholic steatohepatitis) (Rosanne osman Dx) Start: 05-09-2024 End: 05-09-2024 Office outpatient visit 15 minutes Giovani Hagen MD Work Phone: [facility] Comment on above: Cervical radiculopathy due to degenerati ve joint disease of spine (Primary Dx) Start: 05-09-2024 End: 01-16-2025 Orders Only Lydia Kelley DO Work Phone: [...] in partial remission, most recent episode manic ([facility]) Start: 05-06-2024 End: 05-06-2024 Telephone encounter Solo [...] Start: 04-26-2024 End: 04-26-2024 ambulatory ILIANA MERCADO Facility:[facility] Start: 04-26-2024 End: 04-26-2024 Patient encounter procedure Floresignacio Kelley DO Work Phone: Orthopaedics Comment on [...] Office outpatient visit 25 minutes Josephine Gilman VISOR INSTALLER Work Phone: [facility] Comment on above: Acute bronchitis with asthma (CMS/HCC) ( Primary Dx) Start: 04-16-2024 End: 04-16-2024 ambulatory GIOVANI M HIEU Not Available Start: 04-09-2024 End: 04-09-2024 ambulatory SOLO MORA Facility:[facility] Start: 04-05-2024 End: 04-09-2024 ambulatory [facility] Provider Cardiology Comment on above: Surgical Clearance Start: 04-05-2024 End: 04-05-2024 Telephone encounter Solo Mora MD Work Phone: Cardiology Comment on above: Received Outside Medical Records (Cardio Clearance [facility]) Start: 04-03-2024 End: 04-03-2024 ambulatory DEENA LYN Not Available Start: 04-03-2024 End: 04-03-2024 Office outpatient visit 25 minutes Deena Lyn VISOR INSTALLER Work Phone: [facility] Comment on above: Hypokalemia (Primary Dx); Elevated blood sugar; Pre-operative clearance; Acute pain of left shoulder; Obesity (BMI 35.0-39.9 without comorbidity) Start: 04-03-2024 End: 04-03-2024 Preoperative state Deena Lyn VISOR INSTALLER Work Phone: [facility] Start: 04-02-2024 End: 04-02-2024 Telephone encounter Solo Mora MD Work Phone: Cardiology Comment on above: Received Outside Medical Records ([facility]) Start: 04-01-2024 End: 04-01-2024 ambulatory GIOVANI Bob HIEU Not Available Start: 04-01-2024 End: 04-01-2024 Office [...] preventive med est patient 18-39 yrs Darwin Matty DO Work Phone: [facility] Comment on above: Well woman exam with routine gynecologic al exam; Dyspareunia in female; Cystitis Start: 03-20-2024 End: 03-20-2024 ambulatory DARWIN MATTY Not Available Start: 03-20-2024 End: 03-29-2024 Clinisync Result Encounter Generic External Data Provider [facility] External Department Unsolicited Start: 03-20-2024 End: 03-29-2024 Clinisync Result Encounter Generic External Data Provider [facility] External Department Unsolicited Start: 03-19-2024 End: 03-19-2024 ambulatory Anitra Radhames [employer] [facility] Comment on above: Cervical radiculopathy (Primary Dx) Start: 03-11-2024 End: 03-11-2024 ambulatory Arun Brink [employer] [facility] Comment on above: Cervical radiculopathy (Primary Dx) Start: 03-11-2024 End: 03-11-2024 Bamboo flowsheet Arun Brink [employer] [facility] Start: 03-11-2024 End: 03-11-2024 Bamboo flowsheet Arun Brink [employer] [facility] Start: 03-07-2024 End: 03-07-2024 Refill Giovani Hagen MD Work Phone: [facility] Comment on above: Obesity (BMI 35.0-39.9 without comorbidi ty) Start: 03-06-2024 End: 03-07-2024 ambulatory Arun Brink [employer] [facility] Comment on above: Cervical radiculopathy (Primary Dx) Anxiety; Bipolar disorder, in partial remission, most recent episode manic (CMS/HCC) Start: 02-29-2024 End: 02-29-2024 ambulatory Anitra Kelbley [employer] [facility] Comment on above: Cervical radiculopathy (Primary Dx) Start: 02-29-2024 End: 02-29-2024 Bamboo flowsheet Anitra Kelbley [employer] [facility] Start: 02-29-2024 End: 02-29-2024 Bamboo flowsheet Anitra Kelbley [employer] [facility] Start: 02-27-2024 End: 02-27-2024 ambulatory Anitra Kelbley [employer] [facility] Comment on above: Cervical radiculopathy (Primary Dx) Start: 02-27-2024 End: 02-27-2024 Bamboo flowsheet Anitra Kelbley [employer] [facility] Start: 02-27-2024 End: 02-27-2024 Bamboo flowsheet Anitra Kelbley [employer] [facility] Start: 02-20-2024 End: 02-20-2024 Refill Audrey Perez LPN [facility] Comment on above: Attention deficit hyperactivity disorder (ADHD), predominantly inattentive type (CMS/HCC) Start: 02-14-2024 End: 02-15-2024 ambulatory Arun Brink [employer] [facility] Comment on above: Cervical radiculopathy (Primary Dx) Start: 02-14-2024 End: 02-14-2024 Bamboo flowsheet Arun Brink [employer] [facility] Start: 02-14-2024 End: 02-14-2024 Bamboo flowsheet Arun Brink [employer] [facility] Start: 02-12-2024 End: 02-12-2024 ambulatory Zhen Burgess PT Work Phone: [facility] Comment on above: Cervical radiculopathy (Primary Dx) Start: 02-12-2024 End: 02-12-2024 Bamboo flowsheet Zhen Burgess PT Work Phone: [facility] Start: 02-12-2024 End: 02-12-2024 Bamboo flowsheet Zhen Burgess PT Work Phone: [facility] Start: 02-07-2024 End: 02-07-2024 ambulatory Arun Brink [employer] [facility] Comment on above: Cervical radiculopathy (Primary Dx) Start: 02-07-2024 End: 02-07-2024 Bamboo flowsheet Arun Brink [employer] [facility] Start: 02-07-2024 End: 02-07-2024 Bamboo flowsheet Arun Brink [employer] [facility] Start: 02-06-2024 End: 02-06-2024 Office outpatient visit 25 minutes Giovani Hagen MD Work Phone: [facility] Comment on above: Localized edema (Primary Dx); Obesity (BMI 35.0-39.9 without comorbidity); Injury of right ankle, subsequent encounter; Anxiety; Bipolar disorder, in partial remission, most recent episode manic ([facility]) Start: 02-06-2024 End: 02-06-2024 ambulatory GIOVANI [...] PT Initial Eval (Tried to contact to [facility] PT Eval for cervical radiculopathy; but [...] encounter procedure BHAVESH DEJESUS [facility] Start: 12-28-2023 End: 12-29-2023 ambulatory [facility] Provider Cardiology Comment on above: Zio Start: 12-26-2023 End: 12-26-2023 ambulatory GIOVANI HAGEN Not Available Start: 12-26-2023 End: 12-26-2023 Office outpatient visit 25 minutes Giovani Hagen MD Work Phone: [facility] Comment on above: Cervical radiculopathy (Primary Dx); Acute nonintractable headache, unspecified headache type; Nausea and vomiting, unspecified vomiting type Start: 12-19-2023 End: 12-21-2023 Orders Only Solo Mora MD Work Phone: Cardiology Comment on above: Syncope and collapse (Primary Dx) Event (ZIO PATCH) Syncope, unspecified syncope type (Primary Dx) Start: 12-18-2023 End: 02-01-2024 Telephone encounter Benito Kendrick [facility] Comment on above: Lab results Start: 12-13-2023 End: 12-13-2023 Clinisync Result Encounter Generic External Data Provider [facility] External Department Unsolicited Start: 12-13-2023 End: 12-13-2023 Clinisync Result Encounter Generic External Data Provider [facility] External Department Unsolicited Start: 12-04-2023 End: 12-04-2023 ambulatory GIOVANI GUPTAA Not Available Start: 12-04-2023 Patient encounter status Zhen Burgess PT Work Phone: [facility] Start: 11-02-2023 Orders Only Solo Mora MD Work Phone: Cardiology Comment on above: Gastroparesis (Primary Dx) Patient Update (Refe rral & Records are in Care Everywhere) Start: 10-03-2023 End: 10-03-2023 ambulatory GIOVANI HAGEN Not Available Start: 09-07-2023 End: 09-07-2023 ambulatory CADE WILCOX Not Available Start: 03-22-2023 End: 03-24-2023 Evaluation and management of inpatient [facility] Start: 03-20-2023 ambulatory Carol Winn MD [...] ry Dx) Start: 10-26-2022 End: 10-26-2022 ambulatory MD Giovani Hagen Work Phone: [facility] Work Phone: Start: 10-26-2022 End: 10-26-2022 Patient encounter procedure MD Giovani Hagen Work Phone: [facility] [place] Work Phone: Start: 10-18-2022 ambulatory Maria Dolores Corey DO Work Phone: Gastroenterology Start: 10-18-2022 Telephone encounter Maria Dolores Corey DO Work Phone: Gastroenterology Comment on above: Medication Preauthorization (Motegrity) Results Start: 10-17-2022 End: 10-17-2022 Patient encounter procedure Electrogastrogram [facility] Work Phone: Gastroenterology Comment on above: Gastroparesis (Primary Dx) Start: 09-12-2022 End: 09-12-2022 Subsequent hospital visit by physician [facility] Work Phone: [facility] Radiology Molecular Comment on above: Nausea [R11.0] Start: 08-31-2022 End: 08-31-2022 Subsequent hospital visit by physician Carol Winn MD Work Phone: Ambulatory Surgery Comment on above: PUD (peptic ulcer disease) [K27.9] Start: 08-24-2022 Telephone encounter Nurse [facility] Work Phone: Gastroenterology Comment on above: Appointment Start: 07-08-2022 End: 07-08-[address] MADHURI MISHRA . Facility:H1 Start: 07-06-2022 End: 07-07-[address] MADHURI MISHRA . Facility:[facility]1 Start: 07-05-2022 End: 07-05-2022 Patient encounter procedure Madhuri MISHRA [facility] Start: 07-04-2022 Orders Only Carol Winn MD Work Phone: Gastroenterology Start: 06-30-2022 End: 06-30-2022 Subsequent hospital visit by physician Carol Winn MD Work Phone: Ambulatory Surgery Comment on above: Bilious vomiting with nausea [R11.14] Start: 06-29-2022 End: 06-30-[address] MADHURI MISHRA . Facility:H1 Start: 06-29-2022 End: 06-29-2022 Lab Drop off Madhuri MISHRA [facility] Start: 06-23-2022 ambulatory Carol Winn MD Work Phone: Gastroenterology Comment on above: EGD instructions Start: 06-23-2022 E-mail encounter from caregiver Carol Winn MD Work Phone: [facility] Start: 06-16-2022 ambulatory [facility] Provider Gastroenterology Comment on above: Question regarding US ABD RT UPPER QUADR ANT Start: 06-15-2022 End: 06-15-2022 Subsequent hospital visit by physician [facility] Work Phone: [facility] Radiology Ultrasound Comment on above: Liver lesion [K76.9] Start: 06-14-2022 Orders Only Carol Winn MD Work Phone: Ambulatory Surgery Comment on above: Liver lesion (Primary Dx) Results Start: 06-10-2022 ambulatory Diamond Pycraft RT(R) Radiology Ct Scan Comment on above: Radiology CT Start: 06-10-2022 Patient encounter procedure Diamond Pycraft [facility] Start: 06-10-2022 End: 06-10-2022 Subsequent hospital visit by physician [facility] Radiology Ct Scan Comment on above: Bilious vomiting with nausea [R11.14] Start: 05-27-2022 End: 05-27-2022 Subsequent hospital visit by physician [facility] Work Phone: [facility] Radiology General Comment on above: SOB (shortness of breath) [R06.02] Start: 05-27-2022 End: 05-27-2022 Patient encounter procedure Carol Winn MD Work Phone: Gastroenterology Comment on above: Fatty liver (Primary Dx); Bilious vomiting with nausea; Right sided abdominal pain; Nausea; History of diverticulitis; SOB (shortness of breath) Start: 05-13-2022 End: 05-13-2022 ambulatory MD Giovani Hagen Work Phone: [facility] Work Phone: Start: 05-13-2022 End: 05-13-2022 Patient encounter procedure MD Giovani Hagen Work Phone: [facility] Work Phone: Start: 05-03-2022 End: 05-04-2022 ambulatory IMAD COH Other Start: 05-03-2022 Office consultation new/estab patient 60 min Imad Asaad [facility] Gastroenterology Start: 04-20-2022 End: 04-20-[address] AURORA IRBY . Facility:H1 Start: 04-06-2022 End: 04-07-[address] GIOVANI HAGEN Facility:[facility]1 Start: 12-21-2021 End: 12-22-[address] AURORA IRBY . Facility:H1 Start: 12-10-2021 End: 12-10-2021 Subsequent hospital visit by physician [facility] Ul[facility] Comment on above: Elevated LFTs [...] 11-06-2018 End: 11-09-2018 Patient encounter procedure OZIEL [facility] Procedures Date Procedure Procedure Detail Performing Clinician Start: 07-10-2024 Us pelvic nonobstetric real-time image complete Javy Boudreaux MD Work Phone: Start: 07-03-2024 Radex ankle complete minimum 3 views Milton Roth Dolbran DPM FACFAS Work Phone: Start: 06-25-2024 RECURRENT VAGINITIS (HTRX) Darwin Mcleodo D O Work Phone: Start: 05-27-2024 MLR [...] hysterectomy Darwin Matty DO Work Phone: Hysterectomy Madhuricecille MISHRA Plan of Treatment Date Care Activity Detail Author Start: 12-23-2024 Influenza vaccination [facility] Comment on above: Postponed from 12/24/2023 (Other Medical Reasons) Start: 09-04-2024 End: 09-04-2024 Patient encounter procedure 09/04/2024 4:40 PM EDT Office Visit [facility] [address] [place] [phone] Milton Fraire, DPM FACFAS [address] [facility] [place] [address] [facility] Start: 09-02-2024 End: 09-02-2024 Patient encounter procedure 09/02/2024 3:00 PM EDT Office Visit [facility] [address] [facility] [address] [place] [address] Giovani Hagen MD [address] [facility] [address] [place] [address] [facility] Start: 08-21-2024 End: 08-21-2024 Patient encounter procedure 08/21/2024 4:00 PM EDT Office Visit [facility] [address] [place] [address] Milton Fraire, DPM FACFAS [address] [place], [place] [id number] [facility] Start: 08-19-2024 [facility] Start: 08-16-2024 Hospital admission [facility] Start: 08-16-2024 [facility] Start: 08-14-2024 End: 08-14-2024 Patient encounter procedure 08/14/2024 4:10 PM EDT Office Visit [facility] [address] [place] [address] Milton Fraire, DPM FACFAS [address] [place] [address] [facility] Start: 08-13-2024 End: 08-13-2024 Patient encounter procedure 08/13/2024 2:30 PM EDT Office Visit Cardiology [address] [place] [address] Solo Mora MD [address] [place] [address] Dx: Syncope, unspecified syncope type [R55] Cardiology Comment on above: Dx: Syncope, unspecified syncope type [R 55] Start: 08-13-2024 End: 08-13-2024 Patient encounter procedure 08/13/2024 12:30 PM EDT Office Visit Cardiology [address] [place] [address] Dx: Syncope, unspecified syncope type [R55] Cardiology Comment on above: Dx: Syncope, unspecified syncope type [R 55] Start: 08-13-2024 End: 08-13-2024 Patient encounter procedure 08/13/2024 10:30 AM EDT Office Visit Cardiology [address] [place] [address] Dx: Syncope, unspecified syncope type [R55] Cardiology Comment on above: Dx: Syncope, unspecified syncope type [R 55] Start: 08-01-2024 End: 08-01-2024 Patient encounter procedure 08/01/2024 2:30 PM EDT Office Visit [facility] [address] [facility] [address] [place] [phone] Giovani Hagen MD [address] [facility] [address] [place] [address] [facility] FM Start: 07-26-2024 End: 07-26-2024 ambulatory 07/26/2024 8:40 AM EDT [facility] Gastroenterology [address] [place] [address] [place] [address] [facility] [place] [address] Elevated LFT, per Pt Gastroenterology Comment on above: Elevated LFT, per Pt Start: 07-24-2024 End: 07-24-2024 Patient encounter procedure 07/24/2024 3:50 PM EDT Office Visit [facility] [address] [place] [address] Milton Fraire, DPM FACFAS [address] [facility] [place] [address] [facility] Start: 07-04-2024 End: 07-04-2024 Patient encounter procedure 07/04/2024 3:30 PM EDT Office Visit [facility] [address] [facility] [address] [place] [address] Giovani Hagen MD [address] [place] [address] [facility] Start: 07-03-2024 End: 07-03-2024 Patient encounter procedure 07/03/2024 2:20 PM EDT Office Visit [facility] [address] [place] [address] Milton Fraire, DPM FACFAS [address] [place] [address] [facility] Start: 06-26-2024 End: 06-26-2024 Patient encounter procedure 06/26/2024 2:50 PM EST Office Visit [facility] [address] [place] [address] Milton Fraire, DPM FAC[facility]AS [address] [place] [address] [facility] Start: 06-25-2024 End: 06-25-2024 Patient encounter procedure [facility] Comment on above: Arrived Start: 06-24-2024 End: 06-24-2024 Patient encounter procedure 06/24/2024 10:40 AM EST Office Visit [facility] [address] [place] [address] Milton Fraire, DPM FACFAS [address] [place] [address] [facility] Start: 06-19-2024 End: 06-19-2024 Patient encounter procedure [facility] Comment on above: Arrived Start: 06-17-2024 End: 06-17-2024 Patient encounter procedure 06/17/2024 10:30 AM EST Office Visit Orthopaedics [address] [place] [address] Naren Verdugo PA-C [address] [place] [phone] 1st post op Rt ankle arthroscopy/internal brace 06/04/24 Orthopaedics Comment on above: 1st post op Rt ankle arthroscopy/interna l brace 06/04/24 Start: 06-12-2024 End: 06-12-2024 ambulatory 06/12/2024 1:45 PM EST Results Only Cardiology [address] [place] [address] Dx: Syncope, unspecified syncope type [R55] Cardiology Comment on above: Dx: Syncope, unspecified syncope type [R 55] Start: 06-12-2024 End: 06-12-2024 Patient encounter procedure Cardiology Comment on above: Dx: Syncope, unspecified syncope type [R 55] Start: 06-10-2024 End: 06-10-2024 Patient encounter procedure 06/10/2024 9:40 AM EST Appointment [facility] [address] [facility] [address] [place] [phone] Rosario Mcconnell I, MD [address] [facility] [address] [place] [address] [facility] - [facility] Comment on above: C[facility]OH RESEARCH - CORCEPT Start: 06-04-2024 End: 06-04-2024 Patient encounter procedure 06/04/2024 9:40 AM EST Office Visit [facility] [address] [place] [address] Milton Fraire, DPM FACFAS [address] [facility] [place] [address] [facility] Start: 06-04-2024 End: 06-04-2024 Admission to same day surgery center 06/04/2024 7:30 AM EST - 06/04/2024 10:10 AM EST Surgery [facility] Surgery [address] [place] [address] Lydia Kelley DO [address] [place] [address] REPAIR ANKLE LIGAMENT SECONDARY DISRUPTED, COLLATERAL [facility] Surgery Comment on above: REPAIR ANKLE LIGAMENT SECONDARY DISRUPTE D, COLLATERAL Start: 06-04-2024 End: 06-04-2024 Repair secondary disrupted ligament ankle coltrl REPAIR ANKLE LIGAMENT SECONDARY DISRUPTED, COLLATERAL Right ankle instability 06/04/2024 7:30 AM EST ME OR Start: 06-04-2024 Subsequent hospital visit by physician 06/04/2024 7:30 AM EST Hospital Encounter [facility] Surgery [address] [place] [address] Lydia Kelley DO [address] [facility] [place] [address] 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] [facility] Surgery Comment on above: 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] Start: 05-31-2024 End: 05-31-2024 ambulatory 05/31/2024 1:15 PM EST [facility] [address] [address] Lydia Kelley DO [address] [place] [address] 4 week f/u, right ankle Orthopaedics Comment on above: 4 week f/u, right ankle Start: 05-31-2024 End: 05-31-2024 Patient encounter procedure 05/31/2024 9:45 AM EST Office Visit Orthopaedics [address] [place] [address] Lydia Kelley DO [address] [place] [address] 4 week f/u, right ankle Orthopaedics Comment on above: 4 week f/u, right ankle Start: 05-29-2024 End: 05-29-2024 Patient encounter procedure [facility] BCP OB Comment on above: Arrived Start: 05-22-2024 End: 05-22-2024 Patient encounter procedure 05/22/2024 2:30 PM EST Appointment Ambulatory Surgery [address] [place] [address] [place] [address] [place] [address] BRBPR (bright red blood per rectum) [K62.5] Ambulatory Surgery Comment on above: BRBPR (bright red blood per rectum) [K62 .5] Start: 05-15-2024 End: 05-15-2024 Patient encounter procedure [facility] Comment on above: Arrived Start: 05-08-2024 End: 05-08-2024 Patient encounter procedure 05/08/2024 3:10 PM EST Office Visit [facility] [address] [place] [phone] Prateek Pedraza DPM [address] [address] [facility] Start: 05-05-2024 End: 05-05-2024 Anesthesia consultation 05/05/2024 11:59 PM EST Anesthesia Event Ambulatory Surgery [address] [place] [address] Sharla Bonds, RACKET STRINGER.BACON SLICER [address] [place] [address] Ambulatory Surgery Start: 05-02-2024 End: 05-02-2024 ambulatory 05/02/2024 12:00 PM EST Procedure Gastroenterology [id number] [place], [place] [address] [address] fibroscan Gastroenterology Comment on above: fibroscan Start: 05-01-2024 End: 05-01-2024 Patient encounter procedure 05/01/2024 4:30 PM EST Office Visit [facility] [address] [place] [phone] Prateek Pedraza DPM [address] [address] [facility] Start: 04-30-2024 End: 04-30-2024 Patient encounter procedure [facility] Comment on above: Arrived Start: 04-26-2024 End: 04-26-2024 Patient encounter procedure 04/26/2024 3:05 PM EST Office Visit Gastroenterology [address] [place] [address] Iliana Mercado PA-C [address] [place] [address] Elevated LFT, per Pt Gastroenterology Comment on above: Elevated LFT, per Pt Start: 04-26-2024 End: 07-26-2024 Alpha 1 antitrypsin [Mass/volume] in Serum or Plasma [facility] Comment on above: Expected: 04/26/2024, Expires: Start: 04-26-2024 End: 07-26-2024 [id number] [Mass/volume] in Serum or Plasma [facility] Work Phone: Comment on above: Expected: 04/26/2024, Expires: Start: 04-26-2024 End: 07-26-2024 DENY BY IFA WITH REFLEX [facility] Comment on above: Expected: 04/26/2024, Expires: Start: 04-26-2024 End: 07-26-2024 Ceruloplasmin [Mass/volume] in Serum or Plasma [facility] Comment on above: Expected: 04/26/2024, Expires: Start: 04-26-2024 End: 07-26-2024 Hepatitis A virus IgM Ab [Presence] in Serum [facility] Comment on above: Expected: 04/26/2024, Expires: Start: 04-26-2024 End: 07-26-2024 Hepatitis B virus core IgM Ab [Presence] in Serum [facility] Comment on above: Expected: 04/26/2024, Expires: Start: 04-26-2024 End: 07-26-2024 Hepatitis B virus surface Ag [Presence] in Serum [facility] Comment on above: Expected: 04/26/2024, Expires: Start: 04-26-2024 End: 07-26-2024 Hepatitis C virus Ab [Presence] in Serum [facility] Comment on above: Expected: 04/26/2024, Expires: Start: 04-26-2024 End: 07-26-2024 Mitochondria Ab [Presence] in Serum by Immunofluorescence [facility] Comment on above: Expected: 04/26/2024, Expires: Start: 04-26-2024 End: 07-26-2024 Smooth muscle Ab [Presence] in Serum [facility] Comment on above: Expected: 04/26/2024, Expires: Start: 04-03-2024 End: 04-03-2025 Hemoglobin A1c/Hemoglobin.total in Blood Hemoglobin A1c Lab Routine Elevated blood sugar Expected: 04/03/2024 (Approximate), Expires: 04/03/2025 [facility] Comment on above: Expected: 04/03/2024 (Approximate), Expi res: 04/03/2025 Start: 04-03-2024 End: 04-03-2025 MR Shoulder - left WO contrast MR shoulder left wo IV contrast Imaging Routine Acute pain of left shoulder Expected: 04/03/2024, Expires: 04/03/2025 [facility] Comment on above: Expected: 04/03/2024, Expires: Start: 04-03-2024 End: 04-03-2025 Potassium [Moles/volume] in Serum or Plasma Potassium Lab Routine Hypokalemia Expected: 04/03/2024 (Approximate), Expires: 04/03/2025 [facility] Work Phone: Comment on above: Expected: 04/03/2024 (Approximate), Expi res: 04/03/2025 Start: 04-01-2024 End: 04-01-2024 Patient encounter procedure 04/01/2024 8:30 AM EST Office Visit [facility] [address] [facility] [address] [place] [phone] Giovani Hagen MD [address] [facility] [address] [place] [address] [facility] FM Start: 03-27-2024 End: 03-27-2024 ambulatory 03/27/2024 4:00 PM EST Treatment [facility] PT [address] [facility] [address] [place] [address] Zhen Burgess, PT [address] [place] [address] [place] [address] [facility] Start: 03-25-2024 End: 03-25-2024 ambulatory 03/25/2024 4:00 PM EST Treatment [facility] [address] [facility] [address] [place] [address] Arun Hernadez, LIFE CARE PL[employer]NER [facility] Start: 03-20-2024 End: 03-20-2024 Patient encounter procedure 03/20/2024 4:00 PM EST Office Visit [facility] [address] [place] [address] Darwin Starr, DO [address] [place] [address] [facility] Start: 03-19-2024 End: 03-19-2024 ambulatory 03/19/2024 4:00 PM EST Treatment [facility] [address] [facility] [address] [place] [address] Anitra Sanchez [employer]NER [facility] Start: 03-13-2024 End: 03-13-2024 ambulatory 03/13/2024 4:30 PM EST Treatment [facility] [address] [facility] [address] [place] [address] Zhen Burgess, PT [address] [facility] [address] [place] [address] [facility] Start: 03-11-2024 End: 03-11-2024 ambulatory [facility] Comment on above: Arrived Start: 03-06-2024 End: 03-06-2024 ambulatory [facility] Start: 03-04-2024 End: 03-04-2024 ambulatory 03/04/2024 9:00 AM EST Treatment [facility] [address] [place] [address] [place] [address] Arun Hernadez, LIFE CARE PL[employer]NER [facility] Start: 02-29-2024 End: 02-29-2024 ambulatory [facility] Comment on above: Arrived Start: 02-27-2024 End: 02-27-2024 ambulatory [facility] Comment on above: Arrived Start: 02-21-2024 End: 02-21-2024 ambulatory 02/21/2024 4:30 PM EDT Treatment [facility] [address] [place] [address] [place] [address] Anitra Sanchez, LIFE CARE PL[employer]NER [facility] Start: 02-14-2024 End: 02-14-2024 ambulatory [facility] Start: 02-13-2024 End: 02-13-2024 Patient encounter procedure Cardiology Comment on above: Dx: Syncope, unspecified syncope type [R 55] Start: 02-13-2024 End: 02-13-2024 ambulatory 02/13/2024 2:00 PM EDT Results Only Cardiology [address] [place] [address] Dx: Syncope, unspecified syncope type [R55] Cardiology [...] EDT Office Visit [facility] [address] [facility] [place] [phone] Darwin Starr DO [address] [facility] [place] [address] [facility] Start: 01-09-2024 End: 01-09-2024 Patient encounter procedure 01/09/2024 4:00 PM EDT Office Visit [facility] 112 [facility] 110 [place] [address] Giovani Hagen MD 112 [facility] [address] [place] [address] [facility] FM Start: 01-09-2024 End: 01-08-2025 [...] Vaccine ( season) Covid-19 Vaccine ( season) [facility] Start: 12-24-2023 Covid-19 Vaccine ( season) Covid-19 Vaccine ( season) [facility] Start: 12-24-2023 Influenza vaccination Influenza Vaccine (#1) [facility] Start: 12-19-2023 End: 12-19-2023 ambulatory 12/19/2023 2:15 PM EDT Results Only Cardiology [address] [place] [address] Exertional Syncope. Referring: Dr. Shilo Dillon Cardiology Comment on above: Exertional Syncope. Referring: Dr. Shilo Dillon Start: 12-19-2023 End: 12-19-2023 Patient encounter procedure Cardiology Comment on above: Exertional Syncope. Referring: Dr. Shilo Dillon Start: 04-24-2023 Behavioral Health Screening Behavioral Health Screening [facility] Start: 12-23-2022 Covid-19 Vaccine () Covid-19 Vaccine () [facility] Start: 12-23-2022 Influenza vaccination [facility] Start: 05-13-2022 [facility] Start: 04-24-2022 DEPRESSION ASSESSMENT DEPRESSION ASSESSMENT [facility] Start: 12-28-2021 COVID-19 VACCINE (4 - Booster for Pfizer series) COVID-19 VACCINE (4 - Booster for Pfizer series) [facility] Start: 12-28-2021 COVID-19 VACCINE (4 - Pfizer series) COVID-19 VACCINE (4 - Pfizer series) [facility] Start: 12-23-2021 Influenza vaccination INFLUENZA (#1) [facility] Start: 02-06-2020 Urine microalbumin profile DTaP,Tdap,Td Vaccine (6 - Td or Tdap) [facility] Start: 2018 HPV TESTING HPV TESTING [facility] Start: 2009 PAP TESTING PAP TESTING [facility] Start: 2009 Screening for malignant neoplasm of cervix Cervical Cancer Screening [facility] Start: 09-29-2007 Urine microalbumin profile DTAP,TDAP,TD (1 - Tdap) [facility] Start: 11-30-2006 HPV Vaccine (2 - 3-dose series) HPV Vaccine (2 - 3-dose series) [facility] Start: 2006 Anxiety Screening Anxiety Screening [facility] Start: 2006 Depression Screening Depression Screening [facility] Start: 2006 HEPATITIS C SCREENING HEPATITIS C SCREENING [facility] Start: 2006 Hepatitis C screening Hepatitis C Screening [facility] Start: 2006 HIV SCREENING HIV SCREENING [facility] Start: 2006 HIV screening HIV Screening [facility] Start: 1988 HEPATITIS B (1 of 3 - 3-dose series) HEPATITIS B (1 of 3 - 3-dose series) [facility] Actin smooth muscle IgG Ab [Units/volume] in Serum [facility] Alpha 1 antitrypsin [Mass/volume] in Serum or Plasma [facility] Alpha 1 antitrypsin phenotyping [Identifier] in Serum or Plasma by Immunofixation [facility] Ceruloplasmin [Mass/volume] in Serum or Plasma [facility] CHLAMYDIA TRACHOMATI S (GENITO/STI) CHLAMYDIA TRACHOMATIS (GENITO/STI) Lab Routine Pain in female genitalia on intercourse Cystitis Ordered: 06/25/2024 [facility] [employer] Comment on above: Ordered: 06/25/2024 End: 05-23-2024 CLOSTRIDIUM DIFFICILE TOXIN BY EIA [facility] Comment on above: ONCE for 1 Occurrences starting 05/23/19 until 05/23/2024 End: 06-26-2023 Ct abdomen & pelvis w/o contrast material CT ABD/PEL WO IVCON Radiology Routine Bilious vomiting with nausea Right sided abdominal pain Nausea 1 Occurrences starting 05/27/2022 until 06/26/2023 [facility] Work Phone: Comment on above: 1 Occurrences starting 05/27/2022 until 06/26/2023 End: 05-14-2025 CT Guidance for core needle biopsy of Liver LIVER BIOPSY NEEDLE Endoscopy Routine ENGLISH (nonalcoholic steatohepatitis) 1 Occurrences starting 05/14/2024 until 05/14/2025 [facility] Work Phone: Comment on above: 1 Occurrences starting 05/14/2024 until 05/14/2025 Cytology Cervical or vaginal smear or scraping study Pap Smear Pathology and Cytology Routine Well woman exam with routine gynecological exam Ordered: 03/20/2024 [facility] [employer] Work Phone: Comment on above: Ordered: 03/20/2024 End: 11-01-2024 ECG COMPLETE ECG COMPLETE ECG Routine Gastroparesis 1 Occurrences starting 11/02/2023 until 11/01/2024 [facility] Work Phone: Comment on above: 1 Occurrences starting 11/02/2023 until 11/01/2024 End: 12-18-2024 ECG COMPLETE ECG COMPLETE ECG Routine Syncope and collapse 1 Occurrences starting 12/19/2023 until 12/18/2024 [facility] Work Phone: Comment on above: 1 Occurrences starting 12/19/2023 until 12/18/2024 End: 05-27-2023 EGD DIAGNOSTIC EGD DIAGNOSTIC Endoscopy Routine Bilious vomiting with nausea Right sided abdominal pain 1 Occurrences starting 05/27/2022 until 05/27/2023 [facility] Work Phone: Comment on above: 1 Occurrences starting 05/27/2022 until 05/27/2023 Electrogastrography dx transcutaneous EGG (ELECTROGASTROGRAPHY) Procedures Routine Gastroparesis Ordered: 09/14/2022 [facility] Work Phone: Comment on above: Ordered: 09/14/2022 ENTERIC BACTERIAL PA BELEM BY PCR [facility] Work Phone: Comment on above: Release Upon Ordering for 1 Occurrences starting 05/22/2024 End: 04-26-2025 Flexible sigmoidoscopy study COLONOSCOPY DIAGNOSTIC Endoscopy Routine BRBPR (bright red blood per rectum) 1 Occurrences starting 04/26/2024 until 04/26/2025 [facility] Comment on above: 1 Occurrences starting 04/26/2024 until 04/26/2025 Hepatitis A virus Ab [Presence] in Serum by Immunoassay [facility] HFE gene mutations f ound [Identifier] in Blood or Tissue by Molecular genetics method Nominal [facility] Homogenous nuclear A b pattern [Titer] in Serum [facility] Human papilloma viru s DNA [Presence] in Unspecified specimen by Probe with amplification HPV DNA probe, amplified Microbiology Routine Well woman exam with routine gynecological exam Ordered: 03/20/2024 [facility] Comment on above: Ordered: 03/20/2024 IgG [Mass/volume] in Serum or Plasma [facility] Lipoprotein a [Moles/volume] in Serum or Plasma [facility] Liver ultrasound attenuation by transient elastography DDI VIBRATION CONTROLLED TRANSIENT ELASTOGRAPHY (VCTE) Endoscopy Routine Elevated LFTs Ordered: 04/26/2024 [facility] Comment on above: Ordered: 04/26/2024 Mitochondria M2 IgG Ab [Units/volume] in Serum [facility] Neisseria gonorrhoea e DNA [Presence] in Unspecified specimen by SHEILA with probe detection Neisseria gonorrhea DNA probe, direct Lab Routine Pain in female genitalia on intercourse Cystitis Ordered: 06/25/2024 [facility] Comment on above: Ordered: 06/25/2024 Nuclear Ab [Titer] i n Serum [facility] OUTSIDE VENDOR CARDI AC OUTPATIENT EXTENDED RHYTHM RECORDING (WITHOUT TELEMETRY) OUTSIDE VENDOR CARDIAC OUTPATIENT EXTENDED RHYTHM RECORDING (WITHOUT TELEMETRY) Holter Routine Syncope, unspecified syncope type Ordered: 12/19/2023 [facility] Comment on above: Ordered: 12/19/2023 Patient Education Depression in adults - Discharge instructions [facility] Instructions Know your Meds [facility] Work Phone: Patient referral [facility] Work Phone: End: 12-18-2024 STRESS ECHO TREADMILL STRESS ECHO TREADMILL Cardiology Routine Syncope, unspecified syncope type 1 Occurrences starting 12/19/2023 until 12/18/2024 [facility] Work Phone: Comment on above: 1 Occurrences starting 12/19/2023 until 12/18/2024 SURESWAB(R) ADVANCED VAGINITIS PLUS, TMA SURESWAB(R) ADVANCED VAGINITIS PLUS, TMA Pathology and Cytology Routine Pain in female genitalia on intercourse Cystitis Ordered: 06/25/2024 [facility] Work Phone: Comment on above: Ordered: 06/25/2024 SURGICAL PATHOLOGY [facility] Comment on above: Release Upon Ordering for 1 Occurrences starting 05/22/2024, 1 completed End: 07-14-2023 Us abdominal real time w/image limited US ABD RT UPPER QUADRANT Radiology Routine Liver lesion 1 Occurrences starting 06/14/2022 until 07/14/2023 [facility] Work Phone: Comment on above: 1 Occurrences starting 06/14/2022 until 07/14/2023 XR Abdomen Supine an d Upright XR ABDOMEN 2V ROUTINE SUPINE W UPRIGHT/DECUB/CTL Radiology Routine Chronic idiopathic constipation 07/10/2024 11:30 AM EDT [facility] Work Phone: [facility] Immunizations Immunization Date Immunization Notes Care Provider Bernadette vickers 11-02-2021 SARS-CoV-2 mRNA (ofhhocfafbd-lozp-ugqwu se) vaccine Madhuri MISHRA [facility] 04-29-2021 SARS-CoV-2 (COVID-19 ) mRNA BNT-162b2 vax Madhuri MISHRA [facility] 03-03-2021 SARS-CoV-2 (COVID-19 ) mRNA BNT-162b2 vax Madhuricecille MISHRA [facility] Comment on above: Result Comment: 2022: TPVAL 02-09-2021 influenza virus vaccine, unspecified formulation Madhuri MISHRA [facility] 02-09-2021 influenza, injectabl e, quadrivalent, preservative free Zhen Blackston PT Work Phone: [facility] 03-16-2020 influenza virus vaccine, unspecified formulation CONSTRVCT [facility] 03-16-2020 Influenza, injectabl e, Madin Jenn Canine Kidney, preservative free, quadrivalent Zhen Blackston PT Work Phone: [facility] 01-08-2018 influenza virus vaccine, unspecified formulation CONSTRVCT [facility] 01-08-2018 influenza, injectabl e, quadrivalent, contains preservative Zhen Blackston PT Work Phone: [facility] 01-08-2018 influenza, injectabl e, quadrivalent, preservative free Zhen Blackston PT Work Phone: [facility] 02-01-2017 influenza virus vaccine, unspecified formulation Madhuri [employer] [facility] 02-01-2017 Influenza, injectabl e, Madin Jenn Canine Kidney, preservative free, quadrivalent Zhen Blackston PT Work Phone: [facility] 03-25-2016 influenza virus vaccine, unspecified formulation Madhuri MISHRA [facility] 03-25-2016 influenza, injectabl e, quadrivalent, preservative free Zhen Burgess PT Work Phone: [facility] 02-05-2010 tetanus toxoid, redu rolanda diphtheria toxoid, and acellular pertussis vaccine, adsorbed Madhuricecille MISHRA [facility] 01-05-2007 hepatitis B vaccine, pediatric or pediatric/adolescent dosage Madhuri MISHRA [facility] 11-02-2006 hepatitis B vaccine, pediatric or pediatric/adolescent dosage Madhuri MISHRA [facility] 11-02-2006 HPV, unspecified formulation Madhuri MISHRA [facility] 11-02-2006 human papilloma viru s vaccine, quadrivalent Zhen Burgess PT Work Phone: [facility] 11-02-2006 meningococcal ACWY vaccine, unspecified formulation Madhuri MISHRA [facility] 11-02-2006 meningococcal polysaccharide (groups A, C, Y and W-135) diphtheria toxoid conjugate vaccine (MCV4P) Zhen Burgess PT Work Phone: [facility] 02-20-1998 hepatitis B vaccine, pediatric or pediatric/adolescent dosage Madhuri MISHRA [facility] 12-28-1993 diphtheria, tetanus toxoids and pertussis vaccine Zhen Burgess PT Work Phone: [facility] 12-07-1992 diphtheria, tetanus toxoids and pertussis vaccine Zhen Burgess PT Work Phone: [facility] 12-07-1992 measles, mumps and rubella virus vaccine Madhuri MISHRA [facility] 12-07-1992 trivalent poliovirus vaccine, live, oral Zhen Burgess PT Work Phone: [facility] 06-09-1992 diphtheria, tetanus toxoids and pertussis vaccine Zhen Burgess PT Work Phone: [facility] 06-09-1992 measles, mumps and rubella virus vaccine Madhuri MISHRA [facility] 06-09-1992 trivalent poliovirus vaccine, live, oral Zhenben Valentinton PT Work Phone: [facility] 10-31-1990 varicella virus vaccine Patr homer MISHRA [facility] 06-20-1990 diphtheria, tetanus toxoids and pertussis vaccine Zhen Burgess PT Work Phone: [facility] 05-21-1990 trivalent poliovirus vaccine, live, oral Zhen Barbieton PT Work Phone: [facility] 01-10-1989 trivalent poliovirus vaccine, live, oral Zhen Barbieton PT Work Phone: [facility] NEGATED: Highlighted row has not occurred!05-01-2019 influenza virus vaccine, live, attenuated, for intranasal use Madhuricecille MISHRA [facility] NEGATED: Highlighted row has not occurred!04-03-2019 influenza virus vaccine, live, attenuated, for intranasal use Madhuricecille MISHRA [facility] Payers Date Payer Category Payer Self-pay [id number] 2020 Private Health Insurance [id number] 2020 Unknown [id number] [id number] .[id number] 1988 Unknown [id number] 2.16.840.1.505316.3.579.2.1 82 1988 Unknown [id number] 2.16.840.1.849920.3.579.2.5 93 1988 Unknown [id number] 2.16.840.1.313727.3.579.2.5 93 1988 Unknown [id number] 2.16.840.1.731017.3.579.2.5 93 1988 Unknown [id number] 2.16.840.1.318389.3.579.2.5 93 1988 Unknown [id number] 2.16.840.1.899015.3.579.2.5 93 1988 Unknown [id number] 2.16.840.1.694796.3.579.2.5 93 1988 Unknown [id number] 2.16.840.1.718180.3.579.2.5 93 1988 Unknown [id number] 2.16.840.1.036501.3.579.2.5 93 1988 Unknown [id number] 2.16.840.1.350874.3.579.2.5 93 1988 Unknown [id number] 2.16.840.1.317448.3.579.2.5 93 1988 Unknown [id number] 2.16.840.1.624117.3.579.2.5 93 1988 Unknown [id number] 2.16.840.1.231128.3.579.2.5 93 1988 Unknown [id number] 2.16.840.1.405542.3.579.2.5 93 1988 Unknown [id number] 2.16.840.1.443774.3.579.2.1 77 1988 Unknown [id number] 2.16.840.1.012907.3.579.2.7 27 1988 Unknown [id number] 2.16.840.1.656536.3.579.2.7 27 1988 Unknown [id number] 2.16840.1.895750.3.579.2.1 259 1988 Unknown [id number] 2.16.840.1.840874.3.579.2.1 259 1988 Unknown [id number] 2.16840.1.571848.3.579.2.1 259 1988 Unknown [id number] 2.16840.1.121232.3.579.2.1 259 1988 Unknown [id number] 2.840.1.116953.3.579.2.1 259 1988 Unknown [id number] 2.16840.1.536419.3.579.2.1 259 1988 Unknown [id number] 2.16840.1.859369.3.579.2.1 259 1988 Unknown [id number] 2.840.1.932807.3.579.2.1 259 1988 Unknown [id number] 2.840.1.552976.3.579.2.1 259 1988 Unknown [id number] 2.16.840.1.326588.3.579.2.1 259 1988 Unknown [id number] 2.16840.1.850646.3.579.2.1 259 1988 Unknown [id number] 2.16840.1.452841.3.579.2.1 259 1988 Unknown [id number] 2.16840.1.203259.3.579.2.1 259 1988 Unknown [id number] 2.16.840.1.654569.3.579.2.1 259 1988 Unknown [id number] 2.16.840.1.889271.3.579.2.1 259 1988 Unknown [id number] 2.16.840.1.956607.3.579.2.1 259 1988 Unknown [id number] 2.16.840.1.406869.3.579.2.1 259 1988 Unknown [id number] 2.16.840.1.255502.3.579.2.1 259 1988 Unknown [id number] 2.16.840.1.520458.3.579.2.1 259 1988 Unknown [id number] 2.16.840.1.735280.3.579.2.1 259 1988 Unknown [id number] 2.16.840.1.953859.3.579.2.1 259 1988 Unknown [id number] 2.16.840.1.268889.3.579.2.1 259 1988 Unknown [id number] 2.16.840.1.774972.3.579.2.1 259 1988 Unknown [id number] 2.16.840.1.279454.3.579.2.1 259 1988 Unknown [id number] 2.16.840.1.934347.3.579.2.1 259 1988 Unknown [id number] 2.16.840.1.142367.3.579.2.1 259 1988 Unknown [id number] 2.16.840.1.958443.3.579.2.1 259 1988 Unknown [id number] 2.16.840.1.548302.3.579.2.1 259 1988 Unknown [id number] 2.16.840.1.101786.3.579.2.1 259 1988 Unknown [id number] 2.16.840.1.381508.3.579.2.1 259 1988 Unknown [id number] 2.16.840.1.549423.3.579.2.1 259 1988 Unknown [id number] 2.16.840.1.311533.3.579.2.1 259 1988 Unknown [id number] 2.16.840.1.895234.3.579.2.1 259 1988 Unknown [id number] 2.16.840.1.055315.3.579.2.1 259 1988 Unknown [id number] 2.16.840.1.509976.3.579.2.1 259 1988 Unknown [id number] 2.16840.1.470165.3.579.2.1 259 1988 Unknown [id number] 2.16840.1.076240.3.579.2.1 259 1988 Unknown [id number] 2.16840.1.321499.3.579.2.1 259 1988 Unknown [id number] 2.16.840.1.903541.3.579.2.1 259 1988 Unknown [id number] 2.16.840.1.929222.3.579.2.1 259 1988 Unknown [id number] 2.16.840.1.766335.3.579.2.1 259 1959 Unknown [id number] Unknown 100 [facility] [id number] Unknown [id number] 2.16.840.1.597744.3.579.2.5 31 Social History Date Type Detail Facility Tobacco smoking stat [facility] Unknown if ever smoked [facility] Work Phone: Start: 1990 Sex Assigned At Female [facility] Start: 03-28-2019 End: 05-27-2022 Tobacco smoking status NHIS Never smoked tobacco [facility] Start: 05-27-2022 End: 05-01-2023 Tobacco use and exposure Smokeless tobacco non-user [facility] Start: 05-27-2022 End: 07-10-2024 Alcohol intake Current drinker of alcohol (finding) [facility] Start: 03-28-2019 Alcohol Comment socially [facility] Start: 1990 Sex Assigned At Not on file [facility] Start: 10-17-2022 End: 11-02-2022 Sex Assigned At [facility] Start: 06-29-2022 End: 05-01-2023 Tobacco smoking status Ex-smoker (finding) [facility] Tobacco smoking status Never [facility] Start: 10-17-2022 End: 11-02-2022 History of Social function [facility] Start: 06-08-2021 Gender identity Identifies as female gender (finding) [facility] Start: 11-16-2021 End: 11-26-2021 Exposure to SARS-CoV-2 (event) Not sure [facility] Start: 08-17-2024 History of tobacco use Current smoker [facility] Within the last year , have you been afraid of your partner or ex-partner? No [facility] Do you belong to any clubs or organizations such as mu-ism groups, unions, fraternal or athletic groups, or [...] 1 occasion? Less than monthly [facility] Start: 08-19-2024 Sex Female (finding) [facility] Goals Date Patient Goal Desired Activity /State Personal health goal Personal health goal Functional Status Date Assessment Result Facility 09-02-2024 Patient Health Quest ionnaire 2 item (PHQ-2) [Reported] [facility] 08-19-2024 Functional status Patient at [facility] Work Phone: 12-28-2023 Functional Status N/A [facility] [place] 06-30-2022 Functional Status N/A [facility] Mental Status Date Assessment Result Facility 08-19-2024 Cognitive function Cognitive Sta tus Patient at [facility] Work Phone: Clinical Notes 05-03-2022 to 09-04-2024 Milton Fraire DPM [facility]AC[facility] - 09/04/2024 4:40 PM Rox Hagen MD - 09/02/2024 3:45 PM Rox Hagen MD - 09/02/2024 3:42 PM Rox Hagen MD - 09/02/2024 3:39 PM EDT Note Date & Type Note Facility 09-04-2024 History of Present illness Narrative Formatting of this note is different fro m the original. Patient: Orion Harper : 1990 PCP: Giovani Hagen MD SUBJECTIVE This is a 33 y.o. female that presents today 9 weeks s/p right lateral ankle stabilization with peroneal tendon repair Pt denies n/f/v/c and has minimal pain to post op site. She states she feels 100 percent she has been using compression stocking which has helped . Allergies: Allergies Allergen Reactions Cat Dander Anaphylaxis Iodinated Contrast Media Hives Iodine Itching and Swelling Omnipaque 300: Patient experienced itching on her neck and left side of her face. Also, pt complained of tongue feeling itchy and feels like something is stuck in her throat . Patient received diphenhydramine (Benadryl) Past Medical History: Past Medical History: Diagnosis [...] right renal stones Ankle sprain 01/10/24 Asthma COVID 03/11/2021 Positive COVID Partial Pfizer immunization [...] Rfl: 11 albuterol HFA 90 mcg/act inhaler, Inhale 2 puffs every 6 (six) hours if needed for wheezing, Disp: 18 g, Rfl: 3 amphetamine-dextroamphetamine XR (Adderall XR) 10 MG 24 [...] 10mg daily, Disp: 30 capsule, Rfl: 0 AneCream5 5 % cream, APPLY 1 APPLICATION TOPICALLY FOUR TIMES DAILY NEEDED FOR PAIN, Disp: , Rfl: Cariprazine HCl (Vraylar) 4.5 MG capsule, Take 1 capsule by mouth Daily, Disp: 100 capsule, Rfl: 3 clomiPRAMINE (Anafranil) 50 MG capsule, TAKE 1 CAPSULE BY MOUTH AT BEDTIME, Disp: 30 capsule, Rfl: 0 escitalopram (Lexapro) 20 MG tablet, Take 1.5 tablets (30 mg) by mouth in the morning., Disp: 45 tablet, Rfl: 2 Yifakzpfeia-Tpngjwgfh-Xpbgsp (Trelegy Ellipta) 100-62.5-25 MCG/ACT aerosol powder , INHALE 1 PUFF DAILY, Disp: 60 each, Rfl: 2 hydrocortisone (Anusol-HC) 25 MG suppository, UNWRAP AND INSERT 1 SUPPOSITORY RECTALLY EVERY 12 HOURS NEEDED FOR HEMORRHOIDS, Disp: , Rfl: metoprolol succinate XL (Toprol-XL) 25 MG 24 hr tablet, Take 25 mg by mouth Daily, Disp: , Rfl: montelukast (Singulair) 10 MG tablet, Take 1 tablet (10 mg) by mouth at bedtime, Disp: 30 tablet, Rfl: 11 phentermine (Adipex-P) 37.5 MG tablet, TAKE 1 TABLET (37.5 MG) BY MOUTH IN THE MORNING, Disp: 30 tablet, Rfl: 0 tiZANidine (Zanaflex) 4 MG tablet, Take 1 tablet (4 mg) by mouth every 6 (six) hours if needed for muscle spasms for up to 10 days, Disp: 30 tablet, Rfl: 0 Current Facility-Administered Medications: semaglutide (Ozempic) injection 0.25 mg, 0.25 mg, Subcutaneous, Weekly, Giovani Hagen MD ROS: General: denies fever, chills, fatigue, malaise OBJECTIVE LE EXAM: Derm: Sutures intact to right foot with negative erythema, negative drainage, minimal edema with negative clinical signs of infection. Swelling noted at the lateral ankle ligament complex as well as at the anterior aspect of the ankle itself. No pain over the medial and lateral malleolus Vascular: Palpable pedal pulses to right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 cooperative, gait coordinated. CARDIOVASCULAR MEDICINE TESTING: EK08/13/2024 EXERCISE STRESS TEST: 08/13/2024 CONCLUSIONS: - Exam indication: Syncope - The exercise stress echo was negative for ischemia at 92 % of MPHR (8.3 METS). - The left ventricle is normal in size. Left ventricular systolic function is normal. EF = 62 ? 5% (2D biplane) - The right ventricle is normal in size. Right ventricular systolic function is normal. - AV morphology not clearl (more content not included)...[facility]04-10-2025 History of Present illness Narrative* Giovani Hagen MD - 08/01/2024 2:57 PM EDTAssociated Problem(s): 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CMS/HCC) Some improvement * Giovani Hagen MD - 08/01/2024 2:30 PM EDT Images from the original note were not included. Subjective Patient ID: Orion Harper is a 33 y.o. female who presents for Anxiety. Still has lots of anxiety , but she states she is not picking or pulling anymore Hair less picking of hair and face, but picking at nails. OCD: when younger color and counting, less since the start of medicine Depression: all at once Working from home but has to report. Not able to deal with people Did injury of right ankle after sitting on it and went to ER. Not seen Dr. Fraire. XR was done Has anal fissure with hemorrhoid Anxiety Presents for follow-up visit. Symptoms include nervous/anxious behavior and panic. Symptoms occur most days. The severity of symptoms is moderate. The quality of sleep is fair. Nighttime awakenings: occasional. Compliance with medications is 76-100%. Current Outpatient Medications on File Prior to Visit Medication Sig Dispense Refill AneCream5 5 % cream APPLY 1 APPLICATION TOPICALLY FOUR TIMES DAILY NEEDED FOR PAIN hydrocortisone (Anusol-HC) 25 MG suppository UNWRAP AND INSERT 1 SUPPOSITORY RECTALLY EVERY 12 HOURS NEEDED FOR HEMORRHOIDS albuterol (2.5 MG/3ML) 0.083% nebulizer solution Take 3 mL (2.5 mg) by nebulization every 6 (six) hours if needed for wheezing 75 mL 11 albuterol HFA 90 mcg/act inhaler INHALE 2 PUFFS INTO THE LUNGS EVERY 6 HOURS NEEDED FOR 30 DAYS amphetamine-dextroamphetamine XR (Adderall XR) 10 MG 24 hr capsule Take 1 capsule (10 mg) by mouth in the morning. Do not crush or chew. Take with the 30mg tablet. 30 capsule 0 amphetamine-dextroamphetamine XR (Adderall XR) 30 MG 24 hr capsule Take 1 capsule (30 mg) by mouth Daily Do not crush or chew. Take with the 10mg daily 30 capsule 0 clomiPRAMINE (Anafranil) 25 MG capsule Take 1 capsule (25 mg) by mouth at bedtime 30 capsule 11 escitalopram (Lexapro) 20 MG tablet Take 1.5 tablets (30 mg) by mouth in the morning. 45 tablet 2 hydrOXYzine pamoate (Vistaril) 25 MG capsule Take 1 capsule (25 mg) by mouth every 6 (six) hours ifneeded for itching for up to 10 days 30 capsule 0 ketorolac (Toradol) 10 MG tablet Take 10 mg by mouth every 8 (eight) hours if needed (Patient not taking: Reported on 07/26/2024) LORazepam (Ativan) 0.5 MG tablet Take 1 tablet (0.5 mg) by mouth in the morning and in the evening 30 tablet 0 montelukast (Singulair) 10 MG tablet Take 1 tablet (10 mg) by mouth at bedtime 30 tablet 11 phentermine (Adipex-P) 37.5 MG tablet Take 1 tablet (37.5 mg) by mouth in the morning. 30 tablet 0 tiZANidine (Zanaflex) 4 MG tablet Take 1 tablet (4 mg) by mouth every 6 (six) hours if needed for muscle spasms for up to 10 days 30 tablet 0 Vraylar 4.5 MG capsule TAKE 1 CAPSULE BY MOUTH EVERY DAY 30 capsule 5 [DISCONTINUED] cephalexin (Keflex) 250 MG capsule TAKE 1 CAPSULE BY MOUTH AFTER INTERCOURSE TO PREVENT UTI Current Facility-Administered Medications on File Prior to Visit Medication Dose Route Frequency Provider Last Rate Last Admin semaglutide (Ozempic) injection 0.25 mg 0.25 mg Subcutaneous Weekly Giovani Hagen MD I have reviewed and reconciled the [...] right renal stones Ankle sprain 01/10/24 Asthma COVID 03/11/2021 Positive COVID Partial Pfizer immunization [...] patient is nervous/anxious. Objective Physical Exam Assessment/Plan No follow-ups on file. documented in this encounterSaint [facility] [id number] History of Present illness Narrative* Milton Fraire DPM FACFAS - 07/24/2024 3:50 PM EDT Patient: Orion Harper : 1990 PCP: Giovani [...] her throat . Patient received diphenhydramine (Benadryl) Past Medical History: Past Medical History: Diagnosis [...] right renal stones Ankle sprain 01/10/24 Asthma COVID 03/11/2021 Positive COVID Partial Pfizer immunization [...] NEEDED FOR 30 DAYS, Disp: , Rfl: amphetamine-dextroamphetamine XR (Adderall XR) 10 MG 24 hr capsule, Take 1 capsule (10 mg) by mouthin the morning. Do not crush or chew. Take with the 30mg tablet., Disp: 30 capsule, Rfl: 0 amphetamine-dextroamphetamine XR (Adderall XR) 30 MG 24 hr capsule, Take 1 capsule (30 mg) by mouthDaily Do not crush or chew. Take with the 10mg daily, Disp: 30 capsule, Rfl: 0 AneCream5 5 % cream, APPLY 1 APPLICATION TOPICALLY FOUR TIMES DAILY NEEDED FOR PAIN, Disp: , Rfl: cephalexin (Keflex) 250 MG capsule, TAKE 1 CAPSULE BY MOUTH AFTER INTERCOURSE TO PREVENT UTI, Disp:, Rfl: clomiPRAMINE (Anafranil) 25 MG capsule, Take 1 capsule (25 mg) by mouth at bedtime, Disp: 30 capsule, Rfl: 11 escitalopram (Lexapro) 20 MG tablet, Take 1.5 tablets (30 mg) by mouth in the morning., Disp: 45 tablet, Rfl: 2 hydrocortisone (Anusol-HC) 25 MG suppository, UNWRAP AND INSERT 1 SUPPOSITORY RECTALLY EVERY 12 HOURS NEEDED FOR HEMORRHOIDS, Disp: , Rfl: hydrOXYzine pamoate (Vistaril) 25 MG capsule, Take 1 capsule (25 mg) by mouth every 6 (six) hours if needed for itching for up to 10 days, Disp: 30 capsule, Rfl: 0 LORazepam (Ativan) 0.5 MG tablet, Take 1 tablet (0.5 mg) by mouth in the morning and in the evening, Disp: 30 tablet, Rfl: 0 montelukast (Singulair) 10 MG tablet, Take 1 tablet (10 mg) by mouth at bedtime, Disp: 30 tablet, Rfl: 11 phentermine (Adipex-P) 37.5 MG tablet, Take 1 tablet (37.5 mg) by mouth in the morning., Disp: 30 tablet, Rfl: 0 tiZANidine (Zanaflex) 4 MG tablet, Take 1 tablet (4 mg) by mouth every 6 (six) hours if needed for muscle spasms for up to 10 days, Disp: 30 tablet, Rfl: 0 Vraylar 4.5 [...] ankle ligament complex secondary to the fall. ASSESSMENT 1. Peroneal tendon tear, right, initial encounter 2. Right ankle instability 3. Contracture of right ankle PLAN Recommended if they can send me a pneumatic boot to an ASO brace which was dispensed to her today. ASO, Gauntlet Brace, Prefabricated, ([id number]) was dispensed, fitted, and adjusted at this visit. The function of the device is to provide support, decrease edema, control motion at the ankle, and subtalar joints. It will redistribute pressure and allow more comfortable weight-bearing and better support. It is for increased stability of the ankle joint and subtalar joint. The device is medically necessary for the condition, symptoms and diagnosis. The patient was educated as to proper use and care,and this was reviewed in detail. Written instructions and warranty information were given with the device. The current supplier standards were given to the patient. JASON Conti documented in this encounterSaint Mary's Hospital of Blue [id number] History of Present illness Narrative* Estela Robb RT(R) - 07/10/2024 12:45 PM EDT Radiology Service Progress Note PATIENT NAME: Orion Harper DATE OF SERVICE: July 10, 2024 TIME: 11:31 AM PATIENT IDENTITY VERIFICATION COMPLETED USING TWO (2) IDENTIFIERS: Name and Date of confirmedby patient verbally. FALL SCREENING: Has the patient had 2 falls in the last year or 1 fall with injury or currently using an Ambulatory Assistive Device (Walker, Cane, Wheelchair, Crutches, etc.)? Yes, Patient High Riskfor Falls What interventions were put in place to prevent falls during this visit? Instructed Patient to Callfor Help if Needed, Offered Assistance with Transfers/Clothing, Instructed Patient to Remain Seated(Not on Exam Table) Until Exam, and Increased Observations by Caregivers PATIENT GENDER DATA: Assigned female at . status: : No status:NO. PATIENT RELEVANT IMPLANT DATA REVIEWED: Not Applicable PATIENT PRESENTS WITH AN IMPLANTABLE OR ATTACHED MANAGER ENVIRONMENTAL: No RADIOLOGY DEPARTMENT: General X-ray: Exam(s) Completed: Abdomen X-Ray: Abdomen with Upright PERIPHERAL IV DATA: Not applicable SIGNED BY: LISBETH Ruiz) July 10, 2024 11:31 AM documented in this encounterSheltering [facility]03-19-2025 NoteHNO ID: [id number] Author: ESTELA ROBB RT(R) Service: ? Author Type: Technologist Type: Progress Notes Filed: 07/10/2024 11:31 Note Text: Radiology Service Progress Note PATIENT NAME: Orion Harper DATE OF SERVICE: July 10, 2024 TIME: 11:31 AM PATIENT IDENTITY VERIFICATION COMPLETED USING TWO (2) IDENTIFIERS: Name and Date of confirmed by patient verbally. FALL SCREENING: Has the patient had 2 falls in the last year or 1 fall with injury or currently using an Ambulatory Assistive Device (Walker, Cane, Wheelchair, Crutches, etc.)? Yes, Patient High Risk for Falls What interventions were put in place to prevent falls during this visit? Instructed Patient to Call for Help if Needed, Offered Assistance with Transfers/Clothing, Instructed Patient to Remain Seated (Not on Exam Table) Until Exam, and Increased Observations by Caregivers PATIENT GENDER DATA: Assigned female at . status: : No status: NO. PATIENT RELEVANT IMPLANT DATA REVIEWED: Not Applicable PATIENT PRESENTS WITH AN IMPLANTABLE OR ATTACHED MANAGER ENVIRONMENTAL: No RADIOLOGY DEPARTMENT: General X-ray: Exam(s) Completed: Abdomen X-Ray: Abdomen with Upright PERIPHERAL IV DATA: Not applicable SIGNED BY: Estela Robb, RT(R) July 10, 2024 11:31 [facility]03-19-2025 History of Present illness Narrative* Lulú Washburn MD - 07/10/2024 11:31 AM EDT Transabdominal ultrasound performed. See imaging tab for details. Lulú Washburn MD documented in this encounterSheltering Arms Hospital03-19-2025 NoteHNO ID: [id number] Author: LULÚ WASHBURN MD Service: ? Author Type: Physician Type: Progress Notes Filed: 07/10/2024 11:31 Note Text: Transabdominal ultrasound performed. See imaging tab for details. Lulú Washburn, [facility]03-19-2025 NoteHNO ID: [id number] Author: JAVY BOUDREAUX MD Service: ? Author Type: Physician Type: Progress Notes Filed: 07/10/2024 10:15 Note Text: SUBJECTIVE: Oriontuyet Harper is a 33 year old female Patient presents with: Vaginal Problem: Pt presents today for consult - painful intercourse Referred here by her REMOTE SENSING TECHNICIAN at [place]. Has been having pain with intercourse for at least few months With her x 14 years. Because of the pain she would have to take a break for a week after intercourse. She denies exam and Cx due to a cast on her right foot. She had diagnostic LS in 05/18 and was told it was normal and no endometriosis. CURRENT MEDICATIONS: Current Outpatient Medications Medication Sig hydrOXYzine pamoate (VISTARIL) 25 mg capsule Take 25 mg by mouth every 6 hours as needed. LORazepam (ATIVAN) 0.5 mg Take 0.5 mg by mouth daily at bedtime. montelukast (SINGULAIR) 10 mg tablet Take 10 mg by mouth daily at bedtime. fluticasone/umeclidin/vilanter (TRELEGY ELLIPTA INHALATION) Inhale as instructed. escitalopram oxalate (LEXAPRO) 20 mg tablet Take 20 mg by mouth every morning. amphetamine-dextroamphetamine XR (ADDERALL XR) 30 mg capsule Take 30 mg by mouth once daily. cariprazine (VRAYLAR) 4.5 mg capsule Take 4.5 mg by mouth once daily. ALPRAZolam (XANAX) 0.5 mg tablet Take 0.25 mg by mouth two times a day. (Patient not taking: Reported on 07/10/2024) No current facility-administered medications for this visit. Reviewed: PAST SURGICAL HISTORY Procedure Laterality Date SECTION HX x3 COLONOSCOPY 04/2018 IBS-c COLONOSCOPY SCREENING 2019 EGD DIAGNOSTIC 2022 HYSTEROSCOPY, DIAGNOSTIC (SEPARATE L'SCOPE CHOLECYSTECTOMY 2022 VAGINAL HYSTERECTOMY PAST MEDICAL HISTORY Diagnosis Date Asthma Bipolar disorder (HCC) Diverticulitis 2017 Hypertension IBS (irritable bowel syndrome) Social History Tobacco Use Smoking status: Never Smokeless tobacco: Never Vaping Use Vaping status: Never Used Substance Use Topics Alcohol use: Yes Alcohol/week: 4.0 standard drinks of alcohol Types: 2 Cans of beer, 2 Shots of liquor per week Comment: socially Drug use: Never Iodinated Contrast Media, Cat Dander, Iv Contrast [Iodine], Omnipaque [Iohexol], and Tree Nuts Labs: Hemoglobin A1C (%) Date Value 10/17/2022 4.7 ) No results found for: CHOL , HDL , LDL , TG REVIEW OF SYSTEMS:GENERAL: No weight loss, malaise or fevers HEENT: Negative for frequent or significant headaches, No changes in hearing or vision, no nose bleeds or other nasal problems NECK: Negative for lumps, goiter, pain and significant neck swelling RESPIRATORY: Negative for cough, hemoptysis, wheezing, COPD, dyspnea or shortness of breath CARDIOVASCULAR: Negative for chest pain, leg swelling, hypertension, CHF or palpitations GI: No nausea, vomiting, or diarrhea PHYSICAL EXAMINATION: BP 131/90 Pulse 108 Ht 5' 2.5 (1.59m) Wt 190 lb (86.2kg) LMP 05/25/2015 BMI 34.18 kg/(m2). GENERAL APPEARANCE: pleasant, well developed, well nourished, white female in no apparent distress NECK: Full range of motion, no adenopathy, thyroid normal, no goiter, and lymphnodes normal, no lymphadenopathy ASSESSMENT/PLAN: 1. Other specified dyspareunia - ICD9: 625.0, ICD10: N94.19 (primary diagnosis) Counseled in length Will do PUS and refer to pelvic pain. - PELVIC US WHI - CONSULT TO REMOTE SENSING TECHNICIAN PELVIC PAIN 2. Pelvic pain in female - ICD9: 625.9, ICD10: R10.2 - counseled. - PELVIC US WHI - CONSULT TO REMOTE SENSING TECHNICIAN PELVIC PAIN Javy Boudreaux MD Medical Decision Making: Problems: Moderate: New problem with uncertain prognosis Data: Unique test(s) ordered: 2 Risk: Low: Low risk from testing/treatment Medical Decision Making Level: 3 - [facility]St[facility] History of Present illness Narrative* Javy Boudreaux MD - 07/10/2024 10:10 AM EDT SUBJECTIVE: Orionbianca Harper is a 33 year old female Patient presents with: Vaginal Problem: Pt presents today for consult - painful intercourse Referred here by her REMOTE SENSING TECHNICIAN at [place]. Has been having pain with intercourse for at least few months With her x 14 years. Because of the pain she would have to take a break for a week after intercourse. She denies exam and Cx due to a cast on her right foot. She had diagnostic LS in 05/18 and was told it was normal and no endometriosis. CURRENT MEDICATIONS: Current Outpatient Medications Medication Sig hydrOXYzine pamoate (VISTARIL) 25 mg capsule Take 25 mg by mouth every 6 hours as needed. LORazepam (ATIVAN) 0.5 mg Take 0.5 mg by mouth daily at bedtime. montelukast (SINGULAIR) 10 mg tablet Take 10 mg by mouth daily at bedtime. fluticasone/umeclidin/vilanter (TRELEGY ELLIPTA INHALATION) Inhale as instructed. escitalopram oxalate (LEXAPRO) 20 mg tablet Take 20 mg by mouth every morning. amphetamine-dextroamphetamine XR (ADDERALL XR) 30 mg capsule Take 30 mg by mouth once daily. cariprazine (VRAYLAR) 4.5 mg capsule Take 4.5 mg by mouth once daily. ALPRAZolam (XANAX) 0.5 mg tablet Take 0.25 mg by mouth two times a day. (Patient not taking: Reported on 07/10/2024) No current facility-administered medications for this visit. Reviewed: PAST SURGICAL HISTORY Procedure Laterality Date SECTION HX x3 COLONOSCOPY 04/2018 IBS-c COLONOSCOPY SCREENING 2019 EGD DIAGNOSTIC 2022 HYSTEROSCOPY, DIAGNOSTIC (SEPARATE L'SCOPE CHOLECYSTECTOMY 2022 VAGINAL HYSTERECTOMY PAST MEDICAL HISTORY Diagnosis Date Asthma Bipolar disorder (HCC) Diverticulitis 2017 Hypertension IBS (irritable bowel syndrome) Social History Tobacco Use Smoking status: Never Smokeless tobacco: Never Vaping Use Vaping status: Never Used Substance Use Topics Alcohol use: Yes Alcohol/week: 4.0 standard drinks of alcohol Types: 2 Cans of beer, 2 Shots of liquor per week Comment: socially Drug use: Never Iodinated Contrast Media, Cat Dander, Iv Contrast [Iodine], Omnipaque [Iohexol], and Tree Nuts Labs: Hemoglobin A1C (%) Date Value 10/17/2022 4.7 ) No results found for: CHOL , HDL , LDL , TG REVIEW OF SYSTEMS:GENERAL: No weight loss, malaise or fevers HEENT: Negative for frequent or significant headaches, No changes in hearing or vision, no nose bleeds or other nasal problems NECK: Negative for lumps, goiter, pain and significant neck swelling RESPIRATORY: Negative for cough, hemoptysis, wheezing, COPD, dyspnea or shortness of breath CARDIOVASCULAR: Negative for chest pain, leg swelling, hypertension, CHF or palpitations GI: No nausea, vomiting, or diarrhea PHYSICAL EXAMINATION: BP 131/90 Pulse 108 Ht 5' 2.5 (1.59m) Wt 190 lb (86.2kg) LMP 05/25/2015 BMI 34.18 kg/(m^2). GENERAL APPEARANCE: pleasant, well developed, well nourished, white female in no apparent distress NECK: Full range of motion, no adenopathy, thyroid normal, no goiter, and lymphnodes normal, no lymphadenopathy ASSESSMENT/PLAN: 1. Other specified dyspareunia - ICD9: 625.0, ICD10: N94.19 (primary diagnosis) Counseled in length Will do PUS and refer to pelvic pain. - PELVIC US WHI - CONSULT TO REMOTE SENSING TECHNICIAN PELVIC PAIN 2. Pelvic pain in female - ICD9: 625.9, ICD10: R10.2 - counseled. - PELVIC US WHI - CONSULT TO REMOTE SENSING TECHNICIAN PELVIC PAIN Javy Boudreaux MD Medical Decision Making: Problems: Moderate: New problem with uncertain prognosis Data: Unique test(s) ordered: 2 Risk: Low: Low risk from testing/treatment Medical Decision Making Level: 3 - Low documented in this encounterSheltering [facility]03-13-2025 History of Present illness Narrative* Giovani Hagen MD - 07/04/2024 3:37 PM EDTAssociated Problem(s): Anxiety Patient's Medicine is effective at controlling symptoms at current dose and frequency. PDMP reviewed with no evidence of overuse and abuse D/W patient to avoid use of benzodiazepines when consuming alcohol Advised against operating heavy machinery and driving long distances while on medicines. * Giovani Hagen MD - 07/04/2024 3:30 PM EDT Images from the original note were not [...] injection 0.25 mg 0.25 mg Subcutaneous Weekly Giovani Hagen MD I have reviewed and reconciled the [...] No follow-ups on file. documented in this encounterSaint Mary's Hospital of Blue [id number] History of Present illness Narrative* Milton Fraire DPM FACFAS - 07/03/2024 2:20 PM EDT Patient: Orion Harper : 1990 PCP: Giovani [...] capsule, Take 1 capsule (10 mg) by mouthin the morning. Do not crush or chew. Take with the 30mg tablet., Disp: 30 capsule, Rfl: 0 amphetamine-dextroamphetamine XR (Adderall XR) 30 MG 24 hr capsule, Take 1 capsule (30 mg) by mouthDaily Do not crush or chew. Take with the 10mg daily, Disp: 30 capsule, Rfl: 0 cephalexin (Keflex) 250 MG capsule, TAKE 1 CAPSULE BY MOUTH AFTER INTERCOURSE TO PREVENT UTI, Disp:, Rfl: escitalopram (Lexapro) 20 MG tablet, Take [...] no fracture dislocations noted place the patient intoa well-padded Coronel compressive dressing she is to transition to weight-bearing in a pneumatic walking boot follow up with me in 2 Milton Fraire DPM FACHAL documented in this encounterSaint Mary's Hospital of Blue [id number] History of Present illness Narrative* Milton Fraire DPM FACFAS - 06/26/2024 2:50 PM EST Patient: Orion Harper : 1990 PCP: Giovani [...] capsule, Take 1 capsule (10 mg) by mouthin the morning. Do not crush or chew. Take with the 30mg tablet., Disp: 30 capsule, Rfl: 0 amphetamine-dextroamphetamine XR (Adderall XR) 30 MG 24 hr capsule, Take 1 capsule (30 mg) by mouthDaily Do not crush or chew. Take with the 10mg daily, Disp: 30 capsule, Rfl: 0 cephalexin (Keflex) 250 MG capsule, TAKE 1 CAPSULE BY MOUTH AFTER INTERCOURSE TO PREVENT UTI, Disp:, Rfl: escitalopram (Lexapro) 20 MG tablet, Take [...] 1 week for reassessment Milton Fraire DPM FACHAL documented in this encounterSaint Mary's Hospital of Blue [id number] History of Present illness Narrative* Acacia Vigil LPN - 06/25/2024 2:20 PM EST Reason for Appointment: Patient ID: Orion Harper is a 33 y.o. female who presents for Painful [place] and bleeding with intercourse Patient presents today [...] capsule 30 mg, Oral, Daily, Do not crushor chew. Take with the 10mg daily cephalexin [...] deficit hyperactivity disorder (ADHD), predominantly inattentive type ([facility]/HCC) 09/23/2022 Bipolar disorder, in partial remission, most recent episode manic ([facility]) 09/23/2022 Diverticular disease of colon 09/23/2022 Dysphagia 09/23/2022 Elevated liver enzymes 09/23/2022 Exercise induced bronchospasm ([facility]) 09/23/2022 Finding of above normal blood pressure 09/23/2022 History of hysterectomy 09/23/2022 Hyperglycemia 09/23/2022 Hypersexuality 09/23/2022 Insomnia 09/23/2022 Irritable bowel syndrome with constipation 09/23/2022 Mild intermittent asthma without complication ([facility]) 09/23/2022 Mood swings 09/23/2022 Nephrolithiasis 09/23/2022 Nonalcoholic steatohepatitis (ENGLISH) 09/23/2022 Other specified abnormal findings of blood chemistry 09/23/2022 Poor concentration 09/23/2022 Sacroiliitis, not elsewhere classified ([facility]) 09/23/2022 Skin pain 09/23/2022 Thyroid enlargement ([facility]) 09/23/2022 Atherosclerosis of aorta ([facility]) 06/16/2020 Atherosclerosis of both carotid arteries 11/16/2020 Atherosclerosis of coronary artery without angina pectoris ([facility]) 05/18/2021 Gastroesophageal reflux disease without esophagitis 07/09/2019 Gastroparesis 11/02/2022 Non-refractory idiopathic generalized epilepsy ([facility]) 11/22/2019 Osteoarthritis of knee 06/14/2019 Hypercholesterolemia ([facility]) 07/01/2021 Recurrent UTI 12/12/2022 Vitamin D deficiency 05/16/2019 Dizziness 12/13/2022 Acute nonintractable headache 12/13/2022 History of COVID-19 02/06/2023 Overweight 02/06/2023 Acute biliary pancreatitis without infection or necrosis 03/21/2023 Calculus of gallbladder without cholecystitis without obstruction 03/23/2023 Cholecystitis 04/18/2023 Encounter for postoperative care 04/18/2023 History of acute pancreatitis 04/18/2023 History of cholecystectomy 04/18/2023 Cough 04/18/2023 Anaphylactic syndrome 04/18/2023 PTSD (post-traumatic stress disorder) ([facility]) 02/24/2015 Tinea 10/03/2023 Weight gain 10/03/2023 Glucose intolerance 10/03/2023 Dyshidrosis 10/03/2023 Encounter for well adult exam without abnormal findings 12/04/2023 Cervical radiculopathy 12/26/2023 Obesity (BMI 35.0-39.9 without comorbidity) 02/06/2024 Localized edema 02/06/2024 Injury of right ankle 02/06/2024 Sprain of anterior talofibular ligament of right ankle 04/01/2024 Pain and swelling of left shoulder 04/03/2024 Asthmatic bronchitis with acute exacerbation ([facility]) 04/16/2024 Snoring 04/16/2024 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 Patient to use Coconut oil in the interm, as triple antibiotics will not be prescribed as to not cause c-diff again for patient. Patient to RTC for annual and PRN. Documented by Acacia Vigil LPN on behalf of: Darwin Starr DO documented in this encounterSaint Mary's Hospital of Blue [id number] History of Present illness Narrative* Prateek Pedraza DPM - 06/19/2024 2:30 PM EST Patient: Orion Mcclellan Meredith : 1990 PCP: [...] capsule, Take 1 capsule (10 mg) by mouthin the morning. Do not crush or chew. Take with the 30mg tablet., Disp: 30 capsule, Rfl: 0 amphetamine-dextroamphetamine XR (Adderall XR) 30 MG 24 hr capsule, Take 1 capsule (30 mg) by mouthDaily Do not crush or chew. Take with the 10mg daily, Disp: 30 capsule, Rfl: 0 cephalexin (Keflex) 250 MG capsule, TAKE 1 CAPSULE BY MOUTH AFTER INTERCOURSE TO PREVENT UTI, Disp:, Rfl: EPINEPHrine (Adrenalin) 0.3 MG/0.3ML injection, Inject 0.3 mL (0.3 mg) into the shoulder, thigh, orbuttocks 1 (one) time for 1 dose, Disp: 1 each, Rfl: 2 escitalopram (Lexapro) 20 MG tablet, Take 1.5 tablets (30 mg) by mouth in the morning., Disp: 45 tablet, Rfl: 2 Kuiapmhauxp-Xlksqiqou-Jfwscl 100-62.5-25 MCG/ACT aerosol powder , Inhale 1 [...] future. Prateek Pedraza DPM documented in this encounterSaint Mary's Hospital of Blue [id number] Telephone encounter Note* Telephone Encounter - VINH Roque - 06/19/2024 10:18 AM EST OARRS reviewed, Rx sent into patient's pharmacy. [facility] [id number] Miscellaneous Notes* Telephone Encounter - VINH Roque - 06/19/2024 10:18 AM EST OARRS reviewed, Rx sent into patient's pharmacy. documented in this encounterSaint Mary's Hospital of Blue [id number] Telephone encounter Note* Telephone Encounter - JASON Conti - 06/12/2024 10:56 PM EST The prescription has been sent to the pharmacy. Thank you. [facility] [id number] Miscellaneous Notes* Telephone Encounter - JASON Conti - 06/12/2024 10:56 PM EST The prescription has been sent to the pharmacy. Thank you. 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 The drive [place] way 1hr and 40 minutes. 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 When gets around people doesn't like to be asked questions and doesn't like to be put on the spot. 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 Bipolar well managed Anxiety Presents for follow-up [...] time for 1 dose 1 each 2 Ravaupttbkp-Mlifbqsxy-Fcczyd 100-62.5-25 MCG/ACT aerosol powder Inhale 1 puff Daily 1 each 0 montelukast (Singulair) 10 MG tablet Take 1 tablet (10 mg) by mouth at bedtime 30 tablet 11 ondansetron ODT (Zofran-ODT) 4 MG disintegrating tablet Take 1 tablet (4 mg) by mouth every 6 (six)hours if needed for nausea or vomiting 30 [...] 4 weeks (around 07/04/2024). documented in this encounterSaint Mary's Hospital of Blue [id number] History of Present illness Narrative* VINH Sibley - 05/29/2024 1:30 PM EST Reason for Appointment: Patient ID: Orion Harper [...] capsule 30 mg, Oral, Daily, Do not crushor chew. cephalexin (Keflex) 250 MG capsule TAKE 1 CAPSULE BY MOUTH AFTER INTERCOURSE TO PREVENT UTI EPINEPHrine (ADRENALIN) 0.3 mg, Intramuscular, Once escitalopram (LEXAPRO) 20 mg, Oral, Every morning Mhyquhjxxni-Ojnsjodpj-Lehzis 100-62.5-25 MCG/ACT aerosol powder 1 puff, Inhalation, [...] constipation 09/23/2022 Mild intermittent asthma without complication ([facility]) 09/23/2022 Mood swings 09/23/2022 Nephrolithiasis 09/23/2022 Nonalcoholic steatohepatitis (ENGLISH) 09/23/2022 Other specified abnormal findings of blood chemistry 09/23/2022 Poor concentration 09/23/2022 Sacroiliitis, not elsewhere classified ([facility]) 09/23/2022 Skin pain 09/23/2022 Thyroid enlargement ([facility]) 09/23/2022 Atherosclerosis of aorta ([facility]) 06/16/2020 Atherosclerosis of both carotid arteries 11/16/2020 Atherosclerosis of coronary artery without angina pectoris ([facility]) 05/18/2021 Gastroesophageal reflux disease without esophagitis 07/09/2019 Gastroparesis 11/02/2022 Non-refractory idiopathic generalized epilepsy ([facility]) 11/22/2019 Osteoarthritis of knee 06/14/2019 Hypercholesterolemia ([facility]) 07/01/2021 Recurrent UTI 12/12/2022 Vitamin D deficiency 05/16/2019 Dizziness 12/13/2022 Acute nonintractable headache 12/13/2022 History of COVID-19 02/06/2023 Overweight 02/06/2023 Acute biliary pancreatitis without infection or necrosis 03/21/2023 Calculus of gallbladder without cholecystitis without obstruction 03/23/2023 Cholecystitis 04/18/2023 Encounter for postoperative care 04/18/2023 History of acute pancreatitis 04/18/2023 History of cholecystectomy 04/18/2023 Cough 04/18/2023 Anaphylactic syndrome 04/18/2023 PTSD (post-traumatic stress disorder) ([facility]) 02/24/2015 Tinea 10/03/2023 Weight gain 10/03/2023 Glucose [...] having a diagnostic laparoscopy performed at [facility] with Dr. Starr.results was reviewed with the patient and all restrictions have been lifted. Follow Up: Patient is to return to the office for annual exam unless needed otherwise. Documented by VINH Sibley on behalf of: VINH Sibley documented in this encounterSaint Mary's Hospital of Blue [id number] Telephone encounter Note* Telephone Encounter - Benito Soriano, RN - 05/23/2024 3:25 PM EST ----- Message from Iliana Mercado PA-C sent [...] prior to that and was given steroids andantibiotics. Stool sample was collected during the colonoscopy Please Iliana send the patient information about c.diff and precautions to follow Carol Winn MD [facility]01-30-2025 Miscellaneous Notes* Telephone Encounter - Benito Soriano, RN - 05/23/2024 3:25 PM EST ----- Message from Iliana Mercado PA-C sent [...] prior to that and was given steroids andantibiotics. Stool sample was collected during the colonoscopy Please Iliana send the patient information about c.diff and precautions to follow Carol Winn MD documented in this encounterSheltering Arms Hospital01-29-2025 History and physical note * Carol Winn MD - 05/22/2024 2:00 PM EST SEDATION HISTORY AND PHYSICAL EXAM SERVICE DATE: [...] DATE: May 22, 2024 TIME: 1:39 PM [facility] Work Phone: 1(505) 413-977401-29-2025 History and physical note* Carol Winn MD - 05/22/2024 2:00 PM EST SEDATION HISTORY AND PHYSICAL EXAM SERVICE DATE: [...] 2024 TIME: 1:39 PM documented in this encounterSheltering Arms Hospital01-29-2025 Nurse Note* Lindsey Buckley RN - 05/22/2024 1:42 PM EST PRE OP LEARNING ASSESSMENT PROCEDURE/SURGERY: GI PROCEDURES: Colonoscopy READINESS TO LEARN COGNITIVE ABILITY: Alert and oriented MOTIVATION TO LEARN: Eager Interested FAMILY SUPPORT: High - Very involved in pt care PATIENT LEARNS BEST BY: Individual Instruction Verbal Instruction FACTORS AFFECTING LEARNING: None PHYSICAL LIMITATIONS AFFECTING LEARNING: None Electronically Signed By: Lindsey Buckley RN In Department: AMBULATORY SURGERY [facility]01-29-2025 Nurse Note* Lindsey Buckley RN - 05/22/2024 1:42 PM EST PRE OP LEARNING ASSESSMENT PROCEDURE/SURGERY: GI PROCEDURES: Colonoscopy READINESS TO LEARN COGNITIVE ABILITY: Alert and oriented MOTIVATION TO LEARN: Eager Interested FAMILY SUPPORT: High - Very involved in pt care PATIENT LEARNS BEST BY: Individual Instruction Verbal Instruction FACTORS AFFECTING LEARNING: None PHYSICAL LIMITATIONS AFFECTING LEARNING: None Electronically Signed By: Lindsey Buckley RN In Department: AMBULATORY SURGERY documented in this encounterSheltering [facility] Hospital01-[facility]25 Telephone encounter Note * Telephone Encounter - Rose Jarvis - 05/15/2024 3:56 PM EST Appts cxl, surgery notified to cxl. [facility]01-22-2025 Miscellaneous Notes* Telephone Encounter - Rose Jarvis - 05/15/2024 3:56 PM EST Appts cxl, surgery notified to cxl. * Telephone Encounter - Karly Scott RN - 05/03/2024 2:21 PM EST Patient has sig bony edema in the talus which needs to heal prior to surgical intervention. This isminimum of 2 months from time of mri and then needs repeat ankle xrays to confirm healing. Patient unfortunately needs to return in May for repeat xrays and needs to be in cam boot until seen at that time. Lydia Kelley DO documented in this encounterSheltering Arms Hospital01-22-2025 History of Present illness Narrative* Milton Fraire DPM FACFAS - 05/15/2024 8:30 AM EST Images from the original note were not included. Patient: Orion A Meredith : 1990 PCP: Giovani Hagen MD [...] hurts when she walks and a does feelunstable when walking as well. She has difficulty walking on uneven terrain. 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 [address] Magnetic Resonance Report Signed Patient: ORION HARPER MR#: [id number] : 1990 Acct:[id number] Age/Sex: 33 / F ADM Date: 03/14/24 Loc: MRI Attending Dr: Laurie Trujillo M.D. Ordering Physician: Laurie Trujillo M.D. Date of Service: 03/14/24 Procedure(s): MR ankle RT wo con Accession Number(s): [id number] cc: GIOVANI HAGEN ; Laurie Trujillo M.D. The [place] [address] Patient Name: ORION HARPER MRN: [id number] date: 1990 Sex: F Assigned Patient Location: MRI Current Patient Location: Accession/Order Number: [id number] Exam Date: 03/14/2024 15:04 Report Date: 03/17/2024 [...] capsule, Take 1 capsule (30 mg) by mouthDaily Do not crush or chew., Disp: 30 capsule, Rfl: 0 cephalexin (Keflex) 250 MG capsule, TAKE 1 CAPSULE BY MOUTH AFTER INTERCOURSE TO PREVENT UTI, Disp:, Rfl: EPINEPHrine (Adrenalin) 0.3 MG/0.3ML injection, Inject 0.3 mL (0.3 mg) into the shoulder, thigh, orbuttocks 1 (one) time for 1 dose, Disp: 1 each, Rfl: 2 escitalopram (Lexapro) 20 MG tablet, TAKE 1 TABLET BY MOUTH EVERY DAY IN THE MORNING, Disp: 30 tablet, Rfl: 2 Fyreprmvxlc-Nsbhtnxay-Mlchlj 100-62.5-25 MCG/ACT aerosol powder , Inhale 1 puff Daily, Disp: 1 each, Rfl: 0 montelukast (Singulair) 10 MG tablet, Take 1 tablet (10 mg) by mouth at bedtime, Disp: 30 tablet, Rfl: 11 phentermine (Adipex-P) 37.5 MG tablet, Take 1 tablet (37.5 mg) by mouth in the morning. Take beforemeals., Disp: 30 tablet, Rfl: 0 Vraylar 4.5 [...] are palpable bilateral, no edema noted Neuro: Hudson-Cullen 5.07 monofilament intact, vibratory sensation intact Derm: [...] tendon. There is significant hypermobility noted in termsof inversion of the right ankle as well patient was slightly guarded slight anterior drawer sign isnoted as well. Pain noted medially of the ankle joint mild crepitus noted with range of motion secondary to her osteochondral defect. Achilles tendon appears to be intact subtalar joint range of motion appears to be unremarkable no subluxation of the subtalar joint noted. XRAY: Three views were taken today AP/MORT/LAT Ankle: No fractures or dislocations seen no spurringnoted at the lateral ankle ligament complex noted as reported on the MRI ASSESSMENT 1. Sprain of anterior talofibular ligament of right ankle, subsequent encounter 2. Right foot pain 3. Peroneal tendon tear, right, initial encounter 4. Osteochondritis dissecans of ankle, right 5. Right ankle instability PLAN I Educated the patient on the clinical and MRI findings. We discussed repair of the peroneal brevistendon with weed tubularization and synovectomy of the peroneal tendon. We discussed performing a lateral ankle stabilization procedure with bolstering of the anterior talofibular ligament and a diagn ostic/therapeutic ankle arthroscopy. I discussed the avascular nature [...] above-stated procedure. JASON Conti documented in this encounterSaint Mary's Hospital of Blue [id number] Telephone encounter Note* Telephone Encounter - VINH Roque - 05/10/2024 12:10 PM EST Pt was seen. OARRS reviewed, Rx sent into patient's pharmacy. [facility] [id number] Miscellaneous Notes* Telephone Encounter - VINH Roque - 05/10/2024 12:10 PM EST Pt was seen. OARRS reviewed, Rx sent into patient's pharmacy. * Telephone Encounter - VINH Roque - 05/09/2024 1:07 PM EST Patient has appointment today. documented in this encounterSaint Mary's Hospital of Blue [id number] History of Present illness Narrative* Giovani Hagen MD - 05/09/2024 2:45 PM EST Images from the original note were not [...] in the morning and 1 tablet (10 mg)in the evening and 1 tablet (10 mg) [...] DAY IN THE MORNING 30 tablet 2 Mrcvntgboro-Cnfxthcjz-Ptlzpv 100-62.5-25 MCG/ACT aerosol powder Inhale 1 puff [...] for 4 days, THEN 1 tablet (10 mg)Daily for 4 days. 40 tablet 0 promethazine [...] of spine - Primary Relevant Medications HYDROcodone-acetaminophen ([place]) 5-325 MG tablet Other Relevant Orders Ambulatory referral to Pain Medicine No follow-ups on file. documented in this encounterSaint Mary's Hospital of Blue [id number] Telephone encounter Note* Telephone Encounter - VINH Roque - 05/09/2024 1:07 PM EST Patient has appointment today. [facility] [id number] History of Present illness Narrative* Prateek Pedraza, DPM - 05/08/2024 3:10 PM EST Patient: Orion Harper : 1990 PCP: Giovani [...] a 3 ft fall with inversion-type injury toher right foot. She was initially seen by [...] capsule, Take 1 capsule (30 mg) by mouthDaily Do not crush or chew., Disp: 30 capsule, Rfl: 0 baclofen (Lioresal) 10 MG tablet, Take 1 tablet (10 mg) by mouth in the morning and 1 tablet (10 mg) in the evening and 1 tablet (10 mg) before bedtime., Disp: 90 tablet, Rfl: 0 cephalexin (Keflex) 250 MG capsule, TAKE 1 CAPSULE BY MOUTH AFTER INTERCOURSE TO PREVENT UTI, Disp:, Rfl: diclofenac (Voltaren) 75 MG EC tablet, every 12 (twelve) hours, Disp: , Rfl: EPINEPHrine (Adrenalin) 0.3 MG/0.3ML injection, Inject 0.3 mL (0.3 mg) into the shoulder, thigh, orbuttocks 1 (one) time for 1 dose, Disp: 1 each, Rfl: 2 escitalopram (Lexapro) 20 MG tablet, TAKE 1 TABLET BY MOUTH EVERY DAY IN THE MORNING, Disp: 30 tablet, Rfl: 2 Qogbrhshgbi-Yejzwdsxn-Uikvpl 100-62.5-25 MCG/ACT aerosol powder , Inhale 1 [...] mg) by mouth in the morning. Take beforemeals., Disp: 30 tablet, Rfl: 0 promethazine (Phenergan) [...] 0 min Stress: Stress Concern Present (04/18/2023) [employer] [place] [employer] - Occupational Stress Questionnaire Feeling of Stress : Very much Social Connections: Moderately Integrated (04/18/2023) Social Connection and Isolation Panel [NHANES] Frequency of Communication with Friends and Family: Three times a week Frequency of Social Gatherings with Friends and Family: Twice a week Attends Buddhism Services: Never Active Member of Clubs or [...] base of the right foot MRI: [place] [address] Magnetic Resonance Report Signed Patient: ORION HARPER MR#: [id number] : 1990 Acct:[id number] Age/Sex: 33 / F ADM Date: 03/14/24 Loc: MRI Attending Dr: Laurie Trujillo M.D. Ordering Physician: Laurie Trujillo M.D. Date of Service: 03/14/24 Procedure(s): MR ankle RT wo con Accession Number(s): [id number] cc: GIOVANI HAGEN ; Laurie Trujillo M.D. [facility] [place] [address] Patient Name: ORION HARPER MRN: [id number] date: 1990 Sex: F Assigned Patient Location: MRI Current Patient Location: Accession/Order Number: [id number] Exam Date: 03/14/2024 15:04 Report Date: 03/17/2024 [...] warranted. Prateek Pedraza DPM documented in this encounterSaint Mary's Hospital of Blue [id number] Telephone encounter Note* Telephone Encounter - Criss Mccrary - 05/06/2024 1:40 PM EST Echo was faxed to Anne-Marie @ [phone] & scanned into outside ep. Patient is having a procedure. Criss Mccrary [facility]01-13-2025 Miscellaneous Notes* Telephone Encounter - Criss Holm - 05/06/2024 1:40 PM EST Echo was faxed to Anne-Marie @ [phone] & scanned into outside ep. Patient is having a procedure. Criss Mccrary documented in this encounterSheltering Arms Hospital01-10-2025 Telephone encounter Note * Telephone Encounter - Karly Scott RN - 05/03/2024 2:21 PM EST Patient has sig bony edema in the talus which needs to heal prior to surgical intervention. This isminimum of 2 months from time of mri and then needs repeat ankle xrays to confirm healing. Patient unfortunately needs to return in May for repeat xrays and needs to be in cam boot until seen at that time. Lydia Kelley DO [facility]01-09-2025 NoteHNO ID: [id number] Author: ZEHRA GRAY PA-C Service: ? Author Type: Physician [employer] Repairer Type: Progress Notes Filed: 05/02/2024 11:34 Note [...] and referral to hepatology. Zehra Gray PA-C [facility] Fibroscan Fibrosis Risk <7 kPA = [...] Int J Clin Exp Med. 2015 Jan 15;8(10):80491-72. PMID: 62684812; PMCID: [id number]. Ruthann Bob, Juan MEEK, Rico M, Cosmo F, Tawnya J, Everardo O, Leyla F, Franci M, Alejandro G, Dorie A, Gianna E, Leyla L, French G, Kashmir A, Vicente U, Jodi S, Franc P, Max V, Last V, Leena Bob, Neo MARIE. Refining the Baveno elastography criteria for the definition of compensated advanced chronic liver disease. J Hepatol. 2020;74(5):8801-8771. doi: 10.1016/j.jhep.2020.11.050. Epub 2019Apr 01. PMID: 07008580. Izabel Bob, Chastity Moran, Martha Bob, Xiao Bob, Joon Stevens, Nuria Roth, Trevin Roth, Trixie Kendrick. AASLD practice guidance on the clinical assessment and management of nonalcoholic fatty liver disease. Hepatology. 2022;77(5):9893-8844. doi:10.1097/HEP.[id number]. Rita'S Hospital 05-02-2024 History of Present illness Narrative* Zehra Gray PA-C - 05/02/2024 11:10 AM EST Fibroscan Report Date performed: May 02, 2024 [...] Int J Clin Exp Med. 2015 Jan 15;8(10):20221-91.PMID: 31592730; PMCID: [id number]. Ruthann Bob, Juan FANTASMA, Rico M, Cosmo F, Tawnya J, Everardo O, Leyla F, Franci M, Alejandro G, Dorie A, Gianna E, Leyla L, French G, Kashmir A, Vicente U, Zapata S, CalAlexandre, Lucilao V, de Kole V, Leena M, Neo MARIE. Refining the Baveno elastography criteria for the definition of compensated advanced chronic liver disease. J Hepatol. 2020;74(5):3564-5582. doi: 10.1016/j.jhep.2020.11.050. Epub 2019Apr 01. PMID: 60630359. Izabel Bob, Chastity Moran, Martha Bob, Xiao Bob, Joon S, Nuria Roth, Trevin Roth, Trixie Kendrick.AASLD practice guidance on the clinical assessment and management of nonalcoholic fatty liver disease. Hepatology. 2022;77(5):1797- 1837. doi:10.1097/HEP.7897883932541790 documented in this encounterSheltering Arms Hospital01-07-2025 History of Present illness Narrative* Sandybety Toribio, EDGE WORKER - 04/30/2024 2:50 PM EST Reason for Appointment: Patient ID: Orion Harper is a 33 y.o. female who presents for Pre-op Visit (Pt present today for a pre operative visit. Pt is scheduled for a ) Patient presents today for Pre Op appointment. Patient is scheduled to undergo Da Avelino assisted Diagnostic Laparoscopy, possible LEENA, possible FOE, possible BSO on 05/23/[address] Starr at [facility]. MEDICATIONS Current Outpatient Medications Medication Instructions albuterol HFA 90 mcg/act inhaler INHALE 2 PUFFS INTO THE LUNGS EVERY 6 HOURS NEEDED FOR 30 DAYS albuterol 2.5 mg, Nebulization, Every 6 hours PRN ALPRAZolam (XANAX) 0.5 mg, Oral, 2 times daily (12/07) amphetamine-dextroamphetamine XR (Adderall XR) 30 MG 24 hr capsule 30 mg, Oral, Daily, Do not crushor chew. baclofen (LIORESAL) 10 mg, Oral, 3 times daily benzonatate (TESSALON PERLES) 100 mg, Oral, 3 times daily PRN, Do not crush or chew. cephalexin (Keflex) 250 MG capsule TAKE 1 CAPSULE BY MOUTH AFTER INTERCOURSE TO PREVENT UTI diclofenac (Voltaren) 75 MG EC tablet Every 12 hours EPINEPHrine (ADRENALIN) 0.3 mg, Intramuscular, Once escitalopram (LEXAPRO) 20 mg, Oral, Every morning Isbnluaouar-Vszlymmaf-Gmkccn 100-62.5-25 MCG/ACT aerosol powder 1 puff, Inhalation, [...] days, THEN 1 tablet (10 mg) Daily for4 days. promethazine (PHENERGAN) 12.5 mg, Oral, Every [...] Attention deficit hyperactivity disorder, predominantly inattentive type ([facility]) 09/23/2022 Bipolar disorder, in partial remission, most recent episode manic ([facility]) 09/23/2022 Diverticular disease of colon 09/23/2022 Dysphagia 09/23/2022 Elevated liver enzymes 09/23/2022 Exercise induced bronchospasm ([facility]) 09/23/2022 Finding of above normal blood pressure 09/23/2022 History of hysterectomy 09/23/2022 Hyperglycemia 09/23/2022 Hypersexuality 09/23/2022 Insomnia 09/23/2022 Irritable bowel syndrome with constipation 09/23/2022 Mild intermittent asthma without complication ([facility]) 09/23/2022 Mood swings 09/23/2022 Nephrolithiasis 09/23/2022 Nonalcoholic steatohepatitis (ENGLISH) 09/23/2022 Other specified abnormal findings of blood chemistry 09/23/2022 Poor concentration 09/23/2022 Sacroiliitis, not elsewhere classified ([facility]) 09/23/2022 Skin pain 09/23/2022 Thyroid enlargement ([facility]) 09/23/2022 Atherosclerosis of aorta ([facility]) 06/16/2020 Atherosclerosis of both carotid arteries 11/16/2020 Atherosclerosis of coronary artery without angina pectoris ([facility]) 05/18/2021 Gastroesophageal reflux disease without esophagitis 07/09/2019 Gastroparesis 11/02/2022 Non-refractory idiopathic generalized epilepsy ([facility]) 11/22/2019 Osteoarthritis of knee 06/14/2019 Hypercholesterolemia ([facility]) 07/01/2021 Recurrent UTI 12/12/2022 Vitamin D deficiency 05/16/2019 Dizziness 12/13/2022 Acute nonintractable headache 12/13/2022 History of COVID-19 02/06/2023 Overweight 02/06/2023 Acute biliary pancreatitis without infection or necrosis 03/21/2023 Calculus of gallbladder without cholecystitis without obstruction 03/23/2023 Cholecystitis 04/18/2023 Encounter for postoperative care 04/18/2023 History of acute pancreatitis 04/18/2023 History of cholecystectomy 04/18/2023 Cough 04/18/2023 Anaphylactic syndrome 04/18/2023 PTSD (post-traumatic stress disorder) ([facility]) 02/24/2015 Tinea 10/03/2023 Weight gain 10/03/2023 Glucose intolerance 10/03/2023 Dyshidrosis 10/03/2023 Encounter for well adult exam without abnormal findings 12/04/2023 Cervical radiculopathy 12/26/2023 Obesity (BMI 35.0-39.9 without comorbidity) 02/06/2024 Localized edema 02/06/2024 Injury of right ankle 02/06/2024 Sprain of anterior talofibular ligament of right ankle 04/01/2024 Pain and swelling of left shoulder 04/03/2024 Asthmatic bronchitis with acute exacerbation ([facility]) 04/16/2024 Snoring 04/16/2024 Resolved Ambulatory Problems Diagnosis [...] nursing note reviewed. Exam conducted with a front end loader operator present. Vitals: Estimated body mass index is [...] reviewed, and patient is to proceed to [facility] OR. Follow Up: Patient is to follow up between 1-2 weeks post operative to assess proper healing and recovery fromprocedure. Documented by Sandy Toribio LPN on behalf of: Darwin Starr DO documented in this encounterSaint Mary's Hospital of Blue [id number] History of Present illness Narrative* Iliana Mercado PA-C - 04/26/2024 3:05 PM EST DEPARTMENT OF GASTROENTEROLOGY - FOLLOW UP REASON [...] she saw Dr. Hylton in 2021 in [facility]. 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 She to lose weight. She was on Wegovy but this caused gastroparesis therefore it was stopped. She is currently on phentermine to work to lose weight. She denies IV drug use, family history of liver disease, abdominaldistention, sleep-wake cycle reversal, confusion, and gym. She [...] started on PPI 2 weeks ago. She hasnoticed some improvement but not completely resolved. Pertinent [...] follow up with Dr. Hylton who is electronic engraver We discussed seeing endocrinology to help with [...] medication, allergies, PMH, PSH, family history and socialhistory. Pertinent information has been listed above. Denies [...] -Fibroscan Iliana Mercado PA-C documented in this encounterSheltering Arms Hospital01-03-2025 NoteHNO ID: [id number] Author: ILIANA MERACDO PA-C Service: ? Author Type: Physician [employer] Repairer Type: Progress Notes Filed: 04/26/2024 15:02 Note [...] she saw Dr. Hylton in 2021 in [facility]. 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 Hylton who is electronic engraver We discussed seeing endocrinology to help with [...] Narrative I have pers (more content not included)...[facility]01[facility]03[facility] Instructions* Patient Instructions* Iliana Mercado PA-C - 04/26/2024 2:23 PM [...] until fiber has dissolved. If fiber is well- tolerated but does not completely regulate bowel movements after 1 week, add another teaspoon of fiber for a total of 3 teaspoons per day. Fiber works best if you are hydrated. Be sure to drink at least 64 oz of water every day. If you have any questions about the above treatment plan, please do not hesitate to send me a [facility] message or call. Iliana Mercado PA-C documented in this encounterSheltering Arms Hospital01-03-2025 NoteHNO ID: [id number] Author: LYDIA KELLEY, DO Service: ? Author [...] Days Frequency: Intermittent Intervention/Comfort measure: Medication;Relaxation HPI: Orionbianca Harper is a 33 year old female [...] return to discuss consent (more content not included)...[facility]01-03-[facility]25 History of Present illness Narrative* Lydia Kelley DO - 04/26/2024 12:19 PM EST Images from the original note were not included. Reason for Visit/Chief Complaint Orionbianca Harper is a 33 year old female who presents today for a new evaluation of following complaint: Patient presents with: Right Ankle - New, Pain, Swelling History of Present Illness: PAIN EVALUATION 04/24/2024 1950 Pain Location: Ankle-Right Description: Aching;Sharp;Shooting;Sore;Throbbing Duration Amount of Time: 1 Duration Units: Days Frequency: Intermittent Intervention/Comfort measure: Medication;Relaxation HPI: Orionbianca Harper is a 33 year old female presenting today with right ankle pain. Patient has been experiencing ankle pain since 01/10/2024 when she sustained a fall down 3 steps. She has been seen by two other physicians and is here for a third opinion. She had images completed. Pain history isnoted as above. Denies calf pain, numbness, tingling, [...] intolerance, new onset joint pain or swelling, newonset extremity weakness or numbness, new onset auditory [...] Lydia Kelley D.O. M.P.H. documented in this encounterSheltering Arms Hospital12-30-2024 Telephone encounter Note * Telephone Encounter - BALDO STRONG - 04/22/2024 9:58 AM EST Patient states she was seen in office on 04-16 and then later in the week she ended up at the Urgent Care due to her cough. She would like Eva Pearls called in for her cough. [facility] [id number] Miscellaneous Notes* Telephone Encounter - BALDO STRONG - 04/22/2024 9:58 AM EST Patient states she was seen in office on 04-16 and then later in the week she ended up at the Urgent Care due to her cough. She would like Eva Pearls called in for her cough. documented in this encounterSaint Mary's Hospital of Blue [id number] History of Present illness Narrative* Josephine Gilman NP - 04/18/2024 4:35 PM EST Images from the original note were not included. [address] , [address] [facility], [address] P: [phone] F: [phone] [facility] Historian of HPI: patient Orion Harper is [...] prednisone rx by PCP that pt states sheis tolerating. Continue with inhalers. Immediate eval if new, worsening or warning s/s otherwise must follow up with PCP over next 5-7 days for recheck, - cefuroxime (Ceftin) 500 MG tablet; Take 1 tablet (500 mg) by mouth in the morning and 1 tablet (500 mg) before bedtime. Do all this for 10 days. Dispense: 20 tablet; Refill: 0 documented in this encounterSaint Mary's Hospital of Blue [id number] Telephone encounter Note* Telephone Encounter - Solo Mora MD - 04/08/2024 3:07 PM EST For surgical clearance regular echo is ok. After she recovers from ankle surgery would still like her to schedule an exercise ECG stress to determine if her episode of passing out is arrhythmic or ifthere is any QT interval changes with exercise. No need for stress echo or nuclear stress right nowif she is unable to do the treadmill [facility] Work Phone: [phone]) 903-652312-16-2024 Miscellaneous Notes* Telephone Encounter - Solo Mora MD - 04/08/2024 3:07 PM EST For surgical clearance regular echo is ok. After she recovers from ankle surgery would still like her to schedule an exercise ECG stress to determine if her episode of passing out is arrhythmic or ifthere is any QT interval changes with exercise. No need for stress echo or nuclear stress right nowif she is unable to do the treadmill documented in this encounterSheltering Arms Hospital12-13-2024 Telephone encounter Note * Telephone Encounter - Criss Mccrary - 04/05/2024 1:01 PM EST Outside ep I have a copy @ my desk Criss Mccrary [facility]12-13-2024 Miscellaneous Notes* Telephone Encounter - Criss Holm - 04/05/2024 1:01 PM EST Outside ep I have a copy @ my desk Criss Mccrary documented in this encounterSheltering Arms Hospital12-11-2024 History of Present illness Narrative* Deena Lyn NP - 04/03/2024 10:30 AM EST Images from the original note were not [...] in the morning and 1 tablet (10 mg)in the evening and 1 tablet (10 mg) [...] DAY IN THE MORNING 30 tablet 2 Ithadqsyfzz-Dtynaakrl-Lyckna 100-62.5-25 MCG/ACT aerosol powder INHALE 1 PUFF [...] tablet (4 mg) by mouth every 6 (six)hours if needed for nausea or vomiting 30 [...] No follow-ups on file. documented in this encounterSaint Mary's Hospital of Blue [id number] Telephone encounter Note* Telephone Encounter - Criss Mccrary - 04/02/2024 3:50 PM EST This 'Ankle Surgery Clearance' was faxed over to Dr. Giovani Hagen (PCP) @ [phone] for signing. I spoke with the patient. Scanned into outside ep. Criss Mccrary [facility]12-10-2024 Miscellaneous Notes* Telephone Encounter - Criss Holm - 04/02/2024 3:50 PM EST This 'Ankle Surgery Clearance' was faxed over to Dr. Giovani Hagen (PCP) @ [phone] for signing. I spoke with the patient. Scanned into outside ep. Criss Mccrary documented in this encounterSheltering Arms Hospital12-09-2024 Miscellaneous Notes* Telephone Encounter - Keri Jamil - 04/01/2024 11:18 AM EST Pt called to schedule, per message below. First Est slot is July 26 for VV. Please review and advise if a New Pt slot can be used for this Pt. Thank you, * Telephone Encounter - Carol Winn MD - 03/29/2024 9:06 PM EST I saw her in the past for this Per my note, Was seen by Dr. Hylton locally Will obtain labs and fibroscan results She had Nausea and vomiting with statin Couldn't tolerate metformin due to nausea/vomiting and diarrhea She can still follow up with Dr. Hylton who is electronic engraver We discussed seeing endocrinology to help with weight loss and insulin resistance We also discussed cutting back on ETOH to one drink a week (currently 3-4 drinks a week) Did she follow up with Dr. Asaad? She can schedule OV with me if she prefers * Telephone Encounter - Connie Lucas RN - 03/29/2024 10:[address] Winn, Pt JESSE Dx Fatty Liver, Liver Disease PT sent MYC message requesting a follow up labs show elevated LFTs and wanted them reviewed Please advise Thanks, Connie Lucas, RN contains abnormal data [facility] LIVER PANEL Component Ref Range & Units [...] RATIO 1.[address] [facility] LIVER PANEL Component Ref Range & Units [...] - 29 U/L 72 High Lipase Order: [id number] Component Ref Range & Units 1 yr ago Lipase 13 - 60 U/L 260 High Hepatic Function Panel Order: [id number] Component Ref Range & Units 1 yr [...] g/dL 5.7 Low Hepatic Function Panel Order: [id number] Component Ref Range & Units 1 yr [...] ntains abnormal data COMPREHENSIVE METABOLIC PANEL Order: [id number] Component Ref Range & Units 1 yr [...] Filt Rate >60 mL/min/1.73m2 >60 Lipase Order: [id number] Component Ref Range & Units 1 yr [...] follow up with Dr. Hylton who is electronic engraver We discussed seeing endocrinology to help with [...] FRONTAL/LAT Carol Winn MD [facility] Telephone encounter Note * Telephone Encounter - Keri Jamil - 04/01/2024 11:18 AM EST Pt called to schedule, per message below. First Est slot is July 26 for VV. Please review and advise if a New Pt slot can be used for this Pt. Thank you, [facility]12-09-20[facility] History of Present illness Narrative* Giovani Hagen MD - 04/01/2024 9:00 AM ESTAssociated Problem(s): Mild intermittent asthma without complication (CMS/HCC) Add Singulair * Giovani Hagen MD - 04/01/2024 8:58 AM ESTAssociated Problem(s): Tremors of nervous system Avoid Stimulants: Caffeine, otc Decongestants Try Klonopin instead of Xanax We can't do Beta Blockers because of asthma If NB consider Neurology CT scan from 12/2022 was normal * Giovani Hagen MD - 04/01/2024 8:30 AM EST Images from the original note were not included. Subjective Patient ID: Orion Harper is a 33 y.o. female who presents for shaking hands. Pt states her hands are shaking all the time , two months ago or three , pt states it is worse whenshe is holding something Pt does state her [...] in the morning and 1 tablet (10 mg)in the evening and 1 tablet (10 mg) [...] DAY IN THE MORNING 30 tablet 2 Vsgyxeagpgb-Znhuhunuk-Uzlcdf 100-62.5-25 MCG/ACT aerosol powder INHALE 1 PUFF [...] mg) by mouth every 6 (six) hours ifneeded for severe pain for up to 5 [...] Mild intermittent asthma without complication (CMS/HCC) Add Buzzjenny No follow-ups on file. documented in this encounterSaint [facility] [id number] Telephone encounter Note* Telephone Encounter - Carol Winn MD - 03/29/2024 9:06 PM EST I saw her in the past for this Per my note, Was seen by Dr. Hylton locally Will obtain labs and fibroscan results She had Nausea and vomiting with statin Couldn't tolerate metformin due to nausea/vomiting and diarrhea She can still follow up with Dr. Hylton who is electronic engraver We discussed seeing endocrinology to help with weight loss and insulin resistance We also discussed cutting back on ETOH to one drink a week (currently 3-4 drinks a week) Did she follow up with Dr. Hylton? She can schedule OV with me if she prefers [facility] Work Phone: [phone] Telephone encounter Note* Telephone Encounter - Connie Lucas RN - 03/29/2024 10:[address] Winn, Pt JESSE Dx Fatty Liver, Liver Disease PT sent MYC message requesting a follow up labs show elevated LFTs and wanted them reviewed Please advise Thanks, Connie Lucas, RN contains abnormal data [facility] LIVER PANEL Component Ref Range & Units [...] RATIO 1.[address] [facility] LIVER PANEL Component Ref Range & Units [...] - 29 U/L 72 High Lipase Order: [id number] Component Ref Range & Units 1 yr ago Lipase 13 - 60 U/L 260 High Hepatic Function Panel Order: [id number] Component Ref Range & Units 1 yr [...] g/dL 5.7 Low Hepatic Function Panel Order: [id number] Component Ref Range & Units 1 yr [...] ntains abnormal data COMPREHENSIVE METABOLIC PANEL Order: [id number] Component Ref Range & Units 1 yr [...] Filt Rate >60 mL/min/1.73m2 >60 Lipase Order: [id number] Component Ref Range & Units 1 yr [...] follow up with Dr. Hylton who is electronic engraver We discussed seeing endocrinology to help with [...] XR CHEST 2V FRONTAL/LAT Carol Winn MD [facility]12-04-2024 Telephone encounter Note* Telephone Encounter - VINH Roque - 03/27/2024 1:03 PM EST OARRS reviewed, Rx sent into patient's pharmacy. [facility] [id number] Miscellaneous Notes* Telephone Encounter - VINH Roque - 03/27/2024 1:03 PM EST OARRS reviewed, Rx sent into patient's pharmacy. * Telephone Encounter - Monet Motley MA - 03/27/2024 12:35 PM EST Per hieu to increase tramadol 50mg 2 po every 6 prn documented in this encounterSaint Mary's Hospital of Blue [id number] Telephone encounter Note* Telephone Encounter - Monet Motley MA - 03/27/2024 12:35 PM EST Per hieu to increase tramadol 50mg 2 po every 6 prn [facility] SpringsGlosebaoxk91-93-8395 Telephone encounter Note* Telephone Encounter - Giovani Hagen MD - 03/25/2024 3:59 PM EST Images from the original note were not included. Patient: Orion Harper : 1990 PCP: Giovani Hagen MD Orion Harper is a 33 y.o. female presenting today [facility]. The main problem [...] Flowsheet Row Patient Outreach from 01/17/2024 in [facility] with [facility] Information Discharge Date 01/10/24 Discharged To: Home Setting Discharge Hospital [facility] Engagement Call Start Time 1232 [...] End Time 1233 No follow-ups on file. [facility] SpringsHzludfcpsy08-75-4478 Miscellaneous Notes* Telephone Encounter - Giovani Hagen MD - 03/25/2024 3:59 PM EST Images from the original note were not included. Patient: Orion Harper : 1990 PCP: Giovani Hagen MD Orion Harper is a 33 y.o. female presenting today for follow[facility]up [facility]. The main problem [...] Flowsheet Row Patient Outreach from 01/17/2024 in [facility] with [facility] Information Discharge Date 01/10/24 Discharged To: Home Setting Discharge Hospital [facility] Engagement Call Start Time 1232 [...] End Time 1233 No follow-ups on file. * Telephone Encounter - BALDO STRONG - 03/25/2024 1:02 PM EST Patient called asking about the results of her MRI, please advise. Results are in the chart. documented in this encounterSaint Mary's Hospital of [facility] [id number] Telephone encounter Note* Telephone Encounter - BALDO STRONG - 03/25/2024 1:02 PM EST Patient called asking about the results of her MRI, please advise. Results are in the chart. [facility] [id number] History of Present illness Narrative* Sandy Toribio LPN - 03/20/2024 4:00 PM EST Reason for Appointment: Patient ID: Orion Harper [...] capsule 30 mg, Oral, Daily, Do not crushor chew. baclofen (LIORESAL) 10 mg, Oral, 3 times daily clobetasol (Temovate) 0.05 % cream 1 application , Topical, Daily, Apply pea- size amount daily for 30 days and then every other day for another 30 days. doxycycline (VIBRAMYCIN) 100 mg, Oral, 2 times daily, Take with at least 8 ounces (large glass) of water, do not lie down for 30 minutes after EPINEPHrine (ADRENALIN) 0.3 mg, Intramuscular, Once escitalopram (LEXAPRO) 20 mg, Oral, Every morning Mxmambvzxuh-Yrmghrxpd-Zcyuaj 100-62.5-25 MCG/ACT aerosol powder INHALE 1 PUFF [...] Attention deficit hyperactivity disorder, predominantly inattentive type ([facility]) 09/23/2022 Bipolar disorder, in partial remission, most recent episode manic ([facility]) 09/23/2022 Diverticular disease of colon 09/23/2022 Dysphagia 09/23/2022 Elevated liver enzymes 09/23/2022 Exercise induced bronchospasm ([facility]) 09/23/2022 Finding of above normal blood pressure 09/23/2022 History of hysterectomy 09/23/2022 Hyperglycemia 09/23/2022 Hypersexuality 09/23/2022 Insomnia 09/23/2022 Irritable bowel syndrome with constipation 09/23/2022 Mild intermittent asthma without complication ([facility]) 09/23/2022 Mood swings 09/23/2022 Nephrolithiasis 09/23/2022 Nonalcoholic steatohepatitis (ENGLISH) 09/23/2022 Other specified abnormal findings of blood chemistry 09/23/2022 Poor concentration 09/23/2022 Sacroiliitis, not elsewhere classified ([facility]) 09/23/2022 Skin pain 09/23/2022 Thyroid enlargement ([facility]) 09/23/2022 Atherosclerosis of aorta ([facility]) 06/16/2020 Atherosclerosis of both carotid arteries 11/16/2020 Atherosclerosis of coronary artery without angina pectoris ([facility]) 05/18/2021 Gastroesophageal reflux disease without esophagitis 07/09/2019 Gastroparesis 11/02/2022 Non-refractory idiopathic generalized epilepsy ([facility]) 11/22/2019 Osteoarthritis of knee 06/14/2019 Hypercholesterolemia ([facility]) 07/01/2021 Recurrent UTI 12/12/2022 Vitamin D deficiency 05/16/2019 Dizziness 12/13/2022 Acute nonintractable headache 12/13/2022 History of COVID-19 02/06/2023 Overweight 02/06/2023 Acute biliary pancreatitis without infection or necrosis 03/21/2023 Calculus of gallbladder without cholecystitis without obstruction 03/23/2023 Cholecystitis 04/18/2023 Encounter for postoperative care 04/18/2023 History of acute pancreatitis 04/18/2023 History of cholecystectomy 04/18/2023 Cough 04/18/2023 Anaphylactic syndrome 04/18/2023 PTSD (post-traumatic stress disorder) ([facility]) 02/24/2015 Tinea 10/03/2023 Weight gain 10/03/2023 Glucose [...] Abnormal LFTs Abnormal liver ultrasound 06/15/2022 Asthma ([facility]) COVID 03/11/2021 Delayed gastric emptying 09/12/2022 Gall [...] nursing note reviewed. Exam conducted with a front end loader operator present. Vitals: Estimated body mass index is [...] of: Darwin Starr DO documented in this encounterSaint Mary's Hospital [facility] [id number] Telephone encounter Note* Telephone Encounter - VINH Roque - 03/07/2024 11:20 AM EST OARRS reviewed, Rx sent into patient's pharmacy. [facility] SpringsBoozwrzxpv69-95-1268 Miscellaneous Notes* Telephone Encounter - VINH Roque - 03/07/2024 11:20 AM EST OARRS reviewed, Rx sent into patient's pharmacy. documented in this encounterSaint Mary's Hospital of Blue [id number] Telephone encounter Note* Telephone Encounter - VINH Roque - 03/07/2024 9:14 AM EST OARRS reviewed, Rx sent into patient's pharmacy. [facility] [id number] Miscellaneous Notes* Telephone Encounter - VINH Roque - 03/07/2024 9:14 AM EST OARRS reviewed, Rx sent into patient's pharmacy. * Telephone Encounter - Sasha Ng - 03/06/2024 4:22 PM EST ALPRAZolam (Xanax) 0.5 MG tablet [facility] documented in this encounterSaint Mary's Hospital of Blue [id number] History of Present illness Narrative* Arun Hernadez PTA - 03/06/2024 4:30 PM EST Physical Therapy Treatment Visit Patient Name: Orion [...] and tissue relaxation/ mobility methods per exercises srikanth Therapeutic Activity: Exercises to improve dynamic activities, [...] to demos tightness along left upper trap/thoracic lcaritza addressed with manual ther. Spasms were reported as reduced. Outcome Measure: 16% Short Term Goal: To be met in 2 weeks Goal 1: Pt to be instructed in home exercise program. [facility] Goals: To be met in 10 weeks Goal 1: Pt to report independence and compliance with home program. MET Goal 2: Pt. Will report of 0/10 neck pain while performing work tasks. Goal 3: Pt will demonstrate normal cervical paraspinal muscle flexibility to help decrease pain andimprove her quality of life. Goal 4: Pt. Will demonstrate normal cervical spine joint mobility to help decrease pain and improveher functional mobility with daily tasks. Goal 5: Pt. Will demonstrate 5/5 scapular strength to help improve upright posture to decrease neckpain. Pt will benefit from skilled PT for 1-2x/week from 02/05/24 to 04/15/24 to address the above impairments. I hereby deem this POC medically necessary. Please sign below. Date: Cosigned by Zhen Burgess, PT at 03/07/2024 2:57 PM EST documented in this encounterSaint Mary's Hospital of Blue [id number] Telephone encounter Note* Telephone Encounter - Sasha Ng - 03/06/2024 4:22 PM EST ALPRAZolam (Xanax) 0.5 MG tablet [facility] [id number] History of Present illness Narrative* Zhen Burgess, PT - 02/12/2024 4:00 PM EDT Physical Therapy Treatment Visit Patient Name: Orion [...] pain today. Ankle swelling still present. Ankle painworst while descending stairs. Pain: 4/10 neck, ankle [...] swelling, pain and improve strength. Strength, Endurance, Flexibility,ROM, HEP, Neural Mobilization, Power, and Core Stability [...] Pt. Continues to demonstrate left cervical radiculopathy symptomswith N/T sensation occasionally occurring throughout the day. Moderate lateral ankle swelling stillpresent. Pt. Educated to try epson salt bath to help decrease swelling. Pt. Reports ankle swelling has been there for 4 weeks. Left cervical spine hypomobility still present. Outcome Measure: 16% Short Term Goal: To be met in 2 weeks Goal 1: Pt to be instructed in home exercise program. We[employer] Goals: To be met in 10 weeks Goal 1: Pt to report independence and compliance with home program. Goal 2: Pt. Will report of 0/10 neck pain while performing work tasks. Goal 3: Pt will demonstrate normal cervical paraspinal muscle flexibility to help decrease pain andimprove her quality of life. Goal 4: Pt. Will demonstrate normal cervical spine joint mobility to help decrease pain and improveher functional mobility with daily tasks. Goal 5: Pt. Will demonstrate 5/5 scapular strength to help improve upright posture to decrease neckpain. Pt will benefit from skilled PT for 1-2x/week from 02/05/24 to 04/15/24 to address the above impairments. I hereby deem this POC medically necessary. Please sign below. Date: documented in this encounterSaint Mary's Hospital of Blue [id number] History of Present illness Narrative* Giovani Hagen MD - 02/06/2024 9:31 AM EDTAssociated Problem(s): Anxiety Patient's Medicine is effective at controlling symptoms at current dose and frequency. PDMP reviewed with no evidence of overuse and abuse D/W patient to avoid use of benzodiazepines when consuming alcohol Advised against operating heavy machinery and driving long distances while on medicines. * Giovani Hagen MD - 02/06/2024 9:24 AM EDTAssociated Problem(s): Obesity (BMI 35.0-39.9 without comorbidity) Needs life style modification. Exercise Routinely Low Calorie Diet F/U in 4 weeks 3500 calorie deficit = 1lb weight loss Small portions TIming of meals Reduce Carbohydrate Intake High Protein Diet * Giovani Hagen MD - 02/06/2024 9:00 AM EDT Images from the original note were not [...] in the morning and 1 tablet (10 mg)in the evening and 1 tablet (10 mg) [...] DAY IN THE MORNING 30 tablet 2 Agfptfmcujz-Tncrnmqne-Mleenb 100-62.5-25 MCG/ACT aerosol powder INHALE 1 PUFF [...] No follow-ups on file. documented in this encounterSaint Mary's Hospital of Blue [id number] Telephone encounter Note* Telephone Encounter - Millicent Cordova - 01/29/2024 11:22 AM EDT 25 visits out to 10/21/24 [facility] [id number] Miscellaneous Notes* Telephone Encounter - Millicent Cordova - 01/29/2024 11:22 AM EDT 25 visits out to 10/21/24 documented in this encounterSaint Mary's Hospital of Blue [id number] History of Present illness Narrative* Acacia Vigil, RONALD - 01/22/2024 1:50 PM EDT Reason for Appointment: Patient ID: Orion Harper [...] capsule 30 mg, Oral, Daily, Do not crushor chew. baclofen (LIORESAL) 10 mg, Oral, 3 times daily EPINEPHrine (ADRENALIN) 0.3 mg, Intramuscular, Once escitalopram (LEXAPRO) 20 mg, Oral, Every morning Klkpnkiveuc-Emkohcjle-Gpprug 100-62.5-25 MCG/ACT aerosol powder INHALE 1 PUFF [...] Attention deficit hyperactivity disorder, predominantly inattentive type ([facility]) 09/23/2022 Bipolar disorder, in partial remission, most recent episode manic ([facility]) 09/23/2022 Diverticular disease of colon 09/23/2022 Dysphagia 09/23/2022 Elevated liver enzymes 09/23/2022 Exercise induced bronchospasm ([facility]) 09/23/2022 Finding of above normal blood pressure 09/23/2022 History of hysterectomy 09/23/2022 Hyperglycemia 09/23/2022 Hypersexuality 09/23/2022 Insomnia 09/23/2022 Irritable bowel syndrome with constipation 09/23/2022 Mild intermittent asthma without complication ([facility]) 09/23/2022 Mood swings 09/23/2022 Nephrolithiasis 09/23/2022 Nonalcoholic steatohepatitis (ENGLISH) 09/23/2022 Other specified abnormal findings of blood chemistry 09/23/2022 Poor concentration 09/23/2022 Sacroiliitis, not elsewhere classified ([facility]) 09/23/2022 Skin pain 09/23/2022 Thyroid enlargement ([facility]) 09/23/2022 Atherosclerosis of aorta ([facility]) 06/16/2020 Atherosclerosis of both carotid arteries 11/16/2020 Atherosclerosis of coronary artery without angina pectoris ([facility]) 05/18/2021 Gastroesophageal reflux disease without esophagitis 07/09/2019 Gastroparesis 11/02/2022 Non-refractory idiopathic generalized epilepsy ([facility]) 11/22/2019 Osteoarthritis of knee 06/14/2019 Hypercholesterolemia ([facility]) 07/01/2021 Recurrent UTI 12/12/2022 Vitamin D deficiency 05/16/2019 Dizziness 12/13/2022 Acute nonintractable headache 12/13/2022 History of COVID-19 02/06/2023 Overweight 02/06/2023 Acute biliary pancreatitis without infection or necrosis 03/21/2023 Calculus of gallbladder without cholecystitis without obstruction 03/23/2023 Cholecystitis 04/18/2023 Encounter for postoperative care 04/18/2023 History of acute pancreatitis 04/18/2023 History of cholecystectomy 04/18/2023 Cough 04/18/2023 Anaphylactic syndrome 04/18/2023 PTSD (post-traumatic stress disorder) ([facility]) 02/24/2015 Tinea 10/03/2023 Weight gain 10/03/2023 Glucose [...] nursing note reviewed. Exam conducted with a front end loader operator present. Vitals: Estimated body mass index is [...] of: Darwin Starr DO documented in this encounterSaint Mary's Hospital of Blue SpringsKvzwowpfkm90-09-3779 History of Present illness Narrative* Giovani Hagen MD - 01/09/2024 4:00 PM EDT Images from the original note were not [...] in the morning and 1 tablet (10 mg)in the evening and 1 tablet (10 mg) [...] DAY IN THE MORNING 30 tablet 2 Addtvsnifws-Ojmihnmme-Olryxy 100-62.5-25 MCG/ACT aerosol powder INHALE 1 PUFF [...] days, THEN 1 tablet (10 mg) Daily for4 days. 40 tablet 0 [] promethazine (Phenergan) [...] No follow-ups on file. documented in this [facility]09-16-2024 Telephone encounter Note* Telephone Encounter - Mala Hirsch - 01/08/2024 12:52 PM EDT [facility] [place] [facility] [place] [facility] [id number] Miscellaneous Notes* Telephone Encounter - Mala Hirsch - 01/08/2024 12:52 PM EDT [facility] [place] [facility] [place] documented in this [facility]09-05-2024 Hospital Discharge instructions Patient Education 12/28/2023 15:59:41 Kidney Stones, Mhmf-nv-Sxno Kidney Stones Kidney stones are rock-like masses [...] Follow these instructions at home: Medicines Take ttyg-fir-kmdcqmi and prescription medicines only as told by [...] provider. Document Revised: 12/02/2022 Document Reviewed: 12/02/2022 [employer] Patient Education 2023 enrich-in. Follow Up Care 11/07/2022 15:52:12 With:BHAVESH DEJESUS PA-C, JASON Address: When:1 year [facility] 09-05-2024 NotePatient Education Urology Kidney Stones Kidney stones are [...] these instructions at home: Medicines ? Take zcbf-ios-wmzhzsu and prescription medicines only as told by [...] provider. Document Revised: 12/02/2022 Document Reviewed: 12/02/2022 [employer] Patient Education ? 2023 enrich-in.[facility] 12-26-2023 History of Present illness Narrative* Giovani Hagen MD - 12/26/2023 3:20 PM EDTAssociated Problem(s): Cervical radiculopathy I discussed with patient that while on prednisone, do not take any NSAIDs like Ibuprofen, Naprosyn,Alleve or motrin. Watch for any side effects like abdominal pain and nausea. Take the prednisone with food or milk. Prednisone may increase appetite. While on prednisone, watch for any sugar elevations. If NB consider PT and xrays Eventual MRI * Giovani Hagen MD - 12/26/2023 3:14 PM EDTAssociated Problem(s): Acute nonintractable headache Could be migraine CT scan of head last December 2022 was normal. Discussed with patient that if WRST headache of her life she needs to go to ER for possible subarachnoid hemorrhage * Monet Motley MA - 12/26/2023 3:00 PM EDT Images from the original note were not [...] DAY IN THE MORNING 30 tablet 2 Mitsfhcqtmg-Tyivvpsiu-Iolqzl 100-62.5-25 MCG/ACT aerosol powder INHALE 1 PUFF [...] No follow-ups on file. documented in this encounterSaint Mary's Hospital of Blue [id number] NoteEducation (CARDMN) MEREDITHORION A ([id number]) 1990 F Date Time Provider Department 12/19/23 [...] infusion Encounter Status:Closed by GEGE LEMA on 12/19/23[facility]08-27-2024 NoteHNO ID: [id number] Author: GEGE LEMA Tech Service: ? Author Type: Technologist Type: Progress Notes Filed: 12/19/2023 15:45 Note Text: EVENT MONITOR DISPOSABLE PATCH INSTRUCTIONS Patient Name: Orion Harper [facility] Number: [id number] Skin prepped and cleansed with alcohol Patch secured to prepped area Monitor Activated Serial #: [id number] Patient Instructed: Prescribed order timeframe Bathing guidelines Usage of event button and diary documentation Return of monitor at the end of prescribed order Call with problems [phone] or [phone]. [phone] Patient expresses a good understanding of instructions [facility]St[facility] History of Present illness Narrative* Gege Lema Tech - 12/19/2023 3:44 PM EDT EVENT MONITOR DISPOSABLE PATCH INSTRUCTIONS Patient Name: Orion Harper [facility] Number: [id number] Skin prepped and cleansed with alcohol Patch secured to prepped area Monitor Activated Serial #: [id number] Patient Instructed: Prescribed order timeframe Bathing guidelines Usage of event button and diary documentation Return of monitor at the end of prescribed order Call with problems [phone] or [phone] ext. [phone] Patient expresses a good understanding of instructions Tristian Pretty documented in this [facility]08-27-2024 Instructions* Patient Instructions* Solo Mora MD - 12/19/2023 3:27 PM EDT Next Steps: 1). Please wear a heart monitor for 2 weeks and mail it back 2). Please get a stress echo done and follow up with me afterwards documented in this encounterS[facility] History of Present illness Narrative* Solo Mora MD - 12/19/2023 2:45 PM EDT Images from the original note were not included. [facility] [place] Meghna Hooker Department of Cardiovascular Medicine SECTION OF CARDIAC PACING and ELECTROPHYSIOLOGY OUTPATIENT VISIT DATE December 19, 2023 OUTPATIENT VISIT TYPE NEW PRIMARY CARE PHYSICIAN: Giovani Hagen MD [address] [facility] [address] [place] [address] CHIEF COMPLAINT: Syncope, cardiac evaluation for family [...] had any workup done including Stress Echo, equipment monitor phototypesetting or 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 Reports symptoms of palpitations and shortness of breath with exertion. She does not monitor her HRat home. She denies chest pain, shortness of breath, orthopnea, cough, edema, PND, lightheadedness or recentsyncope. PAST MEDICAL HISTORY No date: Asthma No [...] HEENT: No-Headache, No-Impaired Vision, No-Glasses, No-Hearing Impairment, No- Ringing in Ears, No-Nosebleeds, No-Poor Dental Care, No-Bleeding Gums and No-Dentures. NECK: No-Swelling, No-Pain, No-Stiffness RESPIRATORY: No-Cough, No-Blood in Sputum, No-Shortness of breath, No-Wheezing, Apnea GASTROINTESTINAL: No- Trouble swallowing, No-Heartburn, No-Change in bowel habits, No-Blood in stool, No-Dark black stools MUSCULOSKELETAL: No-Muscle or joint pain, No-stiffness, No-Joint swelling NEUROLOGIC/PSYCHIATRIC: No-Weakness, No-Paralysis, No-Numbness, No-Tingling, No- Tremor, No-Nervousness or No-anxiety, No-Depressed mood, No-Memory loss [...] bruits, carotids have a normal upstroke, no palpablethyromegaly. Lungs: Clear to auscultation bilaterally, no wheezing [...] had any workup done including Stress Echo, equipment monitor phototypesetting or 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 PLAN AND RECOMMENDATIONS: - Exercise stress echo for exertional syncope to rule out structural or arrhythmic cause - 2 week tina Fitzgerald personally interviewed, confirmed and edited the above information as obtained by others. CONTACT INFORMATION: Solo Mora MD documented in this encounterSheltering [facility]08-27-2024 NoteHNO ID: [id number] Author: SOLO MORA MD Service: ? Author Type: Physician Type: Progress Notes Filed: 12/28/2023 02:49 Note Text: [facility] [place] Meghna Hooker Department of Cardiovascular Medicine SECTION OF CARDIAC PACING and ELECTROPHYSIOLOGY OUTPATIENT VISIT DATE December 19, 2023 OUTPATIENT VISIT TYPE NEW PRIMARY CARE PHYSICIAN: Giovani Hagen MD [address] [place] [address] CHIEF COMPLAINT: Syncope, cardiac evaluation for family [...] had any workup done including Stress Echo, equipment monitor phototypesetting or 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 Reports symptoms of palpitations [...] today for syncopal episod (more content not included)...[facility]08-27-2024 NoteHNO ID: [id number] Author: SOLO MORA MD Service: ? Author [...] triggered events correspond to sinus tachycardia Solo Mora, [facility]08-26-2024 Telephone encounter Note * Telephone Encounter - RT. Aroldo Calvo - 12/18/2023 10:09 AM EDT Patient had labwork performed on 12-13-2023. Dr. Colvin wanted you to be aware so you could review them. [facility] [id number] Miscellaneous Notes* Telephone Encounter - RT. Aroldo Calvo - 12/18/2023 10:09 AM EDT Patient had labwork performed on 12-13-2023. Dr. Colvin wanted you to be aware so you could review them. documented in this encounterSaint [facility] [id number] Telephone encounter Note* Telephone Encounter - Criss Mccrary - 11/02/2023 10:39 AM EDT Images from the original note were not included. Records are in Care Everywhere: EP Referral- 11/01/23 (Dr. Shilo Dillon/Cardiology) Criss Mccrary [facility]07-11-2024 Miscellaneous Notes* Telephone Encounter - Criss Holm - 11/02/2023 10:39 AM EDT Images from the original note were not included. Records are in Care Everywhere: EP Referral- 11/01/23 (Dr. Shilo Dillon/Cardiology) Criss Mccrary documented in this encounterSheltering [facility] Hospital11-27-2023 Miscellaneous Notes* Telephone Encounter - Charlette Campuzano MD - 03/20/2023 6:29 PM EST Patient is a 32-year-old female with past medical history of gastroparesis presented to ED complaining of nausea vomiting and abdominal pain. CT abdomen showed pancreatitis. Lipase 2400. LFTs elevated. Ultrasound abdomen showed common bile duct dilation 11 mm. ED physician spoke to gastroenterologywho recommended transfer for ERCP. Patient is hemodynamically stable. Received 2 L of fluids and IVantibiotics per GI recommendation. Requested to give IV PPI prior to transfer. documented in this encounterSheltering [facility] Hospital07-13-2023 Miscellaneous Notes* Telephone Encounter - Janny Frances - 11/03/2022 3:18 PM EDT PA for Ibsrela initiated electronically. Awaiting response [facility] ID# [id number] Rx BIN [id number] Rx PCN CLAIMCR Rx Grp STOH documented in this encounterSheltering Arms Hospital07-12-2023 History of Present illness Narrative* Soraida Caldwell, PhD - 11/02/2022 5:16 PM EDT Behavioral Medicine [facility] [place] Name: Orion Harper MR#: [id number] Date: 11/02/2022 Time: 1 hour Referred by: Dr. Corey Reason for Referral: gastroparesis interdisciplinary clinic - address psychological factors as theyaffect physical condition Information relayed back to referral [...] was given the website for the [facility] Behavioral Medicine Program and shown the relaxation recordings with the recommendation to practice this and the rationale behind their use. Follow-up with Dr. Conteh was discussed as well as encouraging her to continue her PTSD work with a local trauma therapist. Soraida Zhang, Ph.D. documented in this encounterSheltering Arms Hospital07-12-2023 History of Present illness Narrative* Samuel Freeman MD - 11/02/2022 1:00 PM EDT Assessment ASSESSMENT 32 year old female with medical refractory gastroparesis. PLAN I discussed surgical therapy for gastroparesis in detail. Orionbianca Harper is candidate for furthermedical treatment. Needs to stop Wegovy May consider for wireless motility capsule study Constipation medication change per Dr. 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 : Denies Endocrine: No history of diabetes. Has not taken steroids within the past 30 days. No history of endocrinological symptoms or problems. Hematology: No history of bleeding or clotting disorder. Pt is not taking anti- coagulation or platelet medications. No history of hematological [...] - No LE Edema documented in this encounterSheltering Arms Hospital06-27-2023 Miscellaneous Notes* Telephone Encounter - Karen Haney LPN - 10/18/2022 3:11 PM EDT Images from the original note were not included. Maria Dolores Corey, P Sp Ddsi Clinical Pool Please ask her to see REMOTE SENSING TECHNICIAN to r/o endometriosis there was a very slight abnormal wave (not strong) suggesting its possible Called and spoke with the patient and relayed providers message. documented in this [facility]06-27-2023 Miscellaneous Notes* Telephone Encounter - Karen Haney LPN - 10/18/2022 11:43 AM EDT PA initiated via [employer]. Await response. Covered: Retail, Mail Order Unknown: Specialty, Long-Term Care Group ID: [id number] Group name: BIN: [id number] PCN: CLAIMCR documented in this [facility]06-27-2023 History of Present illness Narrative* Maria Dolores Corey DO - 10/18/2022 7:49 AM EDT Images from the original note were not included. documented in this [facility]06-26-2023 Nurse Note* Janny Frances - 10/17/2022 10:47 AM EDT EGG completed. Able to drink the 500 ml of water without any difficulty. documented in this encounterSheltering Arms Hospital05-22-2023 History of Present illness Narrative* Oziel Vasquez RT(R) - 09/12/2022 10:00 AM EDT RADIOLOGY SERVICE PROGRESS NOTE SERVICE DATE: 09/12/2022 [...] 10:11AM PATIENT DISCHARGED TO: Ambulatory patient, left [place] department area. A Diagnostic radioactive procedure has taken place, with no further precautions necessary other than routine body substance precautions. More information regarding radiation safety can be found usingthis link: [email or web address] SIGNATURE: RT Amber(R) PATIENT NAME: Orion Harper DATE: September 12, 2022 TIME: 2:45 PM PAGER/CONTACT #: documented in this encounterSheltering Arms Hospital05-10-2023 Nurse Note* Wilma Limon RN - 08/31/2022 3:10 PM EDT POST OP LEARNING RESPONSE INSTRUCTION PROVIDED TO: Patient and family member METHOD OF INSTRUCTION: Written instruction - handouts Verbal instruction PATIENT / FAMILY RESPONSE: Information received as demonstrated by interest and questions FOLLOW-UP PLAN: Patient instructed to call with any further issues SUPPLEMENTAL MATERIAL: None REFERRAL (RECOMMENDATION): None Electronically Signed By: Wilma Limon RN In Department: AMBULATORY SURGERY [facility]05-10-[facility] Nurse Note* Wilma Limon RN - 08/31/2022 3:10 PM EDT POST OP LEARNING RESPONSE INSTRUCTION PROVIDED TO: Patient and family member METHOD OF INSTRUCTION: Written instruction - handouts Verbal instruction PATIENT / FAMILY RESPONSE: Information received as demonstrated by interest and questions FOLLOW-UP PLAN: Patient instructed to call with any further issues SUPPLEMENTAL MATERIAL: None REFERRAL (RECOMMENDATION): None Electronically Signed By: Wilma Limon RN In Department: AMBULATORY SURGERY * Ayleen Aj RN - 08/31/2022 2:11 PM EDT PRE OP LEARNING ASSESSMENT PROCEDURE/SURGERY: GI PROCEDURES: EGD READINESS TO LEARN COGNITIVE ABILITY: Alert and oriented MOTIVATION TO LEARN: Interested FAMILY SUPPORT: Unable to assess - Family not present PATIENT LEARNS BEST BY: Written Instruction - Hand-outs Verbal Instruction FACTORS AFFECTING LEARNING: None PHYSICAL LIMITATIONS AFFECTING LEARNING: None Electronically Signed By: Ayleen Aj RN In Department: AMBULATORY SURGERY documented in this encounterSheltering Arms Hospital05-10-2023 History and physical note * Carol Winn MD - 08/31/2022 2:30 PM EDT SEDATION HISTORY AND PHYSICAL EXAM SERVICE DATE: [...] DATE: August 31, 2022 TIME: 2:51 PM [facility]05-10-2023 History and physical note* Carol Winn MD - 08/31/2022 2:30 PM EDT SEDATION HISTORY AND PHYSICAL EXAM SERVICE DATE: [...] 2022 TIME: 2:51 PM documented in this encounterSheltering Arms Hospital05-10-2023 Nurse Note* Ayleen Aj RN - 08/31/2022 2:11 PM EDT PRE OP LEARNING ASSESSMENT PROCEDURE/SURGERY: GI PROCEDURES: EGD READINESS TO LEARN COGNITIVE ABILITY: Alert and oriented MOTIVATION TO LEARN: Interested FAMILY SUPPORT: Unable to assess - Family not present PATIENT LEARNS BEST BY: Written Instruction - Hand-outs Verbal Instruction FACTORS AFFECTING LEARNING: None PHYSICAL LIMITATIONS AFFECTING LEARNING: None Electronically Signed By: Ayleen Aj RN In Department: AMBULATORY SURGERY [facility]05-03-2023 Miscellaneous Notes* Telephone Encounter - Светлана Agosto Ma - 08/24/2022 3:59 PM EDT Lm to confirm procedure for 08-31-22 documented in this encounterSheltering Arms Hospital03-14-2023 Hospital Discharge instructions Patient Education 07/05/2022 08:39:29 EU - Cystoscopy with Urethral Dilation Discharge Instructions (CUSTOM) Cystoscopy with Urethral Dilation Voiding after the procedure: there may be some pain, urethral bleeding, burning, urgency, frequencyand blood tinged urine following the procedure. These [...] [facility] [address] [place] [address]- Business (1) When:11/04/2022 08:39:10 Comments:With a stone metabolic work-up [facility]03-09-2023 Nurse Note* Wilma Limon RN - 06/30/2022 12:46 PM EST Pt denies any nausea at this time. Pt given 3 oz of apple juice per request and tolerating at this time. Pt denies any other s/s at this time, smiling in conversation, 500ml of Nacl completed as well. Pt reports she feels ready to go home. [facility]03-09-[facility] Nurse Note* Wilma Limon RN - 06/30/2022 12:46 PM EST Pt denies any nausea at this time. Pt given 3 oz of apple juice per request and tolerating at this time. Pt denies any other s/s at this time, smiling in conversation, 500ml of Nacl completed as well. Pt reports she feels ready to go home. * Wilma Limon RN - 06/30/2022 12:32 PM EST Pt c/o nausea and started dry heaving [...] Pt resting in bed at this time. * Wilma Limon RN - 06/30/2022 11:57 AM EST POST OP LEARNING RESPONSE INSTRUCTION PROVIDED TO: Patient and family member METHOD OF INSTRUCTION: Individual instruction Written instruction - handouts Verbal instruction PATIENT / FAMILY RESPONSE: Verbalizes understanding of: POST-PROCEDURE INSTRUCTIONS-Correct actionsto take to reduce post procedure complications FOLLOW-UP PLAN: Patient instructed to call with any further issues SUPPLEMENTAL MATERIAL: Post sedation instructions given Procedure discharge instructions REFERRAL (RECOMMENDATION): None Electronically Signed By: Wilma Limon In Department: AMBULATORY SURGERY * Elissa Kwok RN - 06/30/2022 11:27 AM EST PRE OP LEARNING ASSESSMENT PROCEDURE/SURGERY: GI PROCEDURES: EGD READINESS TO LEARN COGNITIVE ABILITY: Alert and oriented MOTIVATION TO LEARN: Interested FAMILY SUPPORT: High - Very involved in pt care PATIENT LEARNS BEST BY: Individual Instruction Written Instruction - Hand-outs Verbal Instruction FACTORS AFFECTING LEARNING: None PHYSICAL LIMITATIONS AFFECTING LEARNING: None Electronically Signed By: Elissa Kwok RN In Department: AMBULATORY SURGERY documented in this encounterSheltering Arms Hospital03-09-2023 Nurse Note* Wilma Limon RN - 06/30/2022 12:32 PM EST Pt c/o nausea and started dry heaving [...] Pt resting in bed at this time. [facility]03-09-2023 Nurse Note* Wilma Limon RN - 06/30/2022 11:57 AM EST POST OP LEARNING RESPONSE INSTRUCTION PROVIDED TO: Patient and family member METHOD OF INSTRUCTION: Individual instruction Written instruction - handouts Verbal instruction PATIENT / FAMILY RESPONSE: Verbalizes understanding of: POST-PROCEDURE INSTRUCTIONS-Correct actionsto take to reduce post procedure complications FOLLOW-UP PLAN: Patient instructed to call with any further issues SUPPLEMENTAL MATERIAL: Post sedation instructions given Procedure discharge instructions REFERRAL (RECOMMENDATION): None Electronically Signed By: Wilma Limon In Department: AMBULATORY SURGERY [facility]03-09-2023 History and physical note* Carol Winn MD - 06/30/2022 11:45 AM EST SEDATION HISTORY AND PHYSICAL EXAM SERVICE DATE: [...] agreed to proceed. SEDATION GOAL: Anesthesia SIGNATURE: Craol Winn MD PATIENT NAME: Orion Harper DATE: June 30, 2022 TIME: 11:35 AM [facility]03-09-2023 History and physical note* Carol Winn MD - 06/30/2022 11:45 AM EST SEDATION HISTORY AND PHYSICAL EXAM SERVICE DATE: [...] 2022 TIME: 11:35 AM documented in this encounterSheltering [facility] Hospital03-09-2023 Nurse Note* Elissa Kwok RN - 06/30/2022 11:27 AM EST PRE OP LEARNING ASSESSMENT PROCEDURE/SURGERY: GI PROCEDURES: EGD READINESS TO LEARN COGNITIVE ABILITY: Alert and oriented MOTIVATION TO LEARN: Interested FAMILY SUPPORT: High - Very involved in pt care PATIENT LEARNS BEST BY: Individual Instruction Written Instruction - Hand-outs Verbal Instruction FACTORS AFFECTING LEARNING: None PHYSICAL LIMITATIONS AFFECTING LEARNING: None Electronically Signed By: Elissa Kwok RN In Department: AMBULATORY SURGERY [facility]03-02-2023 Miscellaneous Notes* Telephone Encounter - Светлана Agosto Ma - 06/23/2022 3:18 PM EST Confirmed procedure for 06-30-22 documented in this encounterSheltering Arms Hospital02-22-2023 History of Present illness Narrative* Monet Osei RDMS - 06/15/2022 8:00 PM EST Radiology Service Progress Note PATIENT NAME: Orion Harper DATE OF SERVICE: June 15, 2022 TIME: 8:08 PM PATIENT IDENTITY VERIFICATION COMPLETED USING TWO (2) IDENTIFIERS: Name and Date of confirmedby patient verbally and Name and Date of [...] 15, 2022 8:08 PM documented in this encounterSheltering Arms Hospital02-21-2023 Miscellaneous Notes* Telephone Encounter - Wilma Murray RN - 06/14/2022 9:56 AM EST Images from the original note were not [...] 9:35 AM EST Back to [facility] Milly, I reviewed the ultrasound done [...] if needed pending results documented in this encounterSheltering Arms Hospital02-17-2023 History of Present illness Narrative* Diamond Rojas, RT(R) - 06/10/2022 10:01 AM EST Radiology Service Progress Note PATIENT NAME: Orion Harper DATE OF SERVICE: June 10, 2022 TIME: 10:01 AM PATIENT IDENTITY VERIFICATION COMPLETED USING TWO (2) IDENTIFIERS: Name and Date of confirmedby patient verbally. FALL SCREENING: Has the patient [...] 10, 2022 10:01 AM documented in this encounterSheltering Arms Hospital02-03-2023 History of Present illness Narrative* Acacia Yang RT(R) - 05/27/2022 12:40 PM EST Radiology Service Progress Note PATIENT NAME: Orion Harper DATE OF SERVICE: May 27, 2022 TIME: 12:29 PM PATIENT IDENTITY VERIFICATION COMPLETED USING TWO (2) IDENTIFIERS: Name and Date of confirmedby patient verbally. FALL SCREENING: Has the patient [...] 27, 2022 12:29 PM documented in this encounterSheltering Arms Hospital02-03-2023 History of Present illness Narrative* Carol Winn MD - 05/27/2022 8:39 AM EST Chief Compliant: Orion Harper, 31 year old [...] follow up with Dr. Hylton who is electronic engraver We discussed seeing endocrinology to help with [...] No follow-ups on file. documented in this encounterSheltering Arms Hospital01-10-2023 Evaluation note* Encounter Date Diagnosis Assessment Notes Treatment Notes Treatment Clinical Notes Apr, ENGLISH (nonalcoholic steatohepatitis) (ICD-10 - K75.81) Apr, Abnormal ultrasound (ICD-10 - R93.89) Apr, Elevated liver enzymes (ICD-10 - R74.8) Apr, Liver cyst (ICD-10 - K76.89) [employer] Other Evaluation + Plan note Future Appointments Appointment Date:06/30/2022 10:00:00 AM Scheduled Provider: Location:[facility] Appointment Type:Urology CALL PAT FT Appointment Date:07/05/2022 08:15:00 AM Scheduled Provider: Location:[facility] Appointment Type:Urology FT Diagnostic Tests Pending * Urine Culture [facility] Future Appointments Appointment Date:11/07/2022 03:15:00 PM Scheduled Provider:Madhuri MISHRA MD Location:[facility] App[facility] Future Appointments Appointment Date:12/30/2024 03:15:00 PM Scheduled Provider:[facility]ISHRA [facility] evaluation noteNo assessment information available [facility] Work Phone: Evaluation note* Diagnosis Fatty liver- Primary Other chronic nonalcoholic liver disease Bilious vomiting with nausea Right sided abdominal pain Abdominal pain, unspecified site Nausea Nausea alone History of diverticulitis SOB (shortness of breath) Shortness of breath [facility] Diagnosis Liver lesion- Primary Other specified disorders of liver documented in this encounter [facility]* Diagnosis Gastroparesis- Primary [facility]* Diagnosis Gastroparesis- Primary [facility]* Diagnosis Irritable bowel syndrome with constipation- Primary Irritable bowel syndrome documented in this encounter [facility]* Diagnosis Gastroparesis documented in this [facility]* Diagnosis Gastroparesis- Primary [facility]* Diagnosis SOB (shortness of breath) Shortness of breath documented in this encounter [facility]* Diagnosis Liver lesion Other specified disorders of liver [facility] Diagnosis Elevated LFTs Other abnormal blood chemistry [facility]* Diagnosis Bilious vomiting with nausea Right sided abdominal pain Abdominal pain, unspecified site Nausea Nausea alone [facility]* Diagnosis Nausea Nausea alone [facility]* Diagnosis Gastroparesis- Primary [facility]* Diagnosis Syncope and collapse- Primary documented [facility] this encounter [facility]* Diagnosis Syncope, unspecified syncope type- Primary documented in this [facility]* Diagnosis Syncope, unspecified syncope type- Primary [facility]* Diagnosis Nausea- Primary Nausea alone PUD (peptic ulcer disease) Peptic ulcer, unspecified site, unspecified as acute or chronic, without mention of hemorrhage, perforation, or obstruction Nausea Nausea alone [facility]* Diagnosis PUD (peptic ulcer disease)- Primary Peptic ulcer, unspecified site, unspecified as acute or chronic, without mention of hemorrhage, perforation, or obstruction Bilious vomiting with nausea Right sided abdominal pain Abdominal pain, unspecified site Nausea- Primary Nausea alone PUD (peptic ulcer disease) Peptic ulcer, unspecified site, unspecified as acute or chronic, without mention of hemorrhage, perforation, or obstruction documented in this encounter [facility]* Diagnosis Attention deficit hyperactivity disorder, [...] episode manic (CMS/HCC) [facility] Diagnosis Attention deficit hyperactivity disorder, predominantly [...] episode manic (CMS/HCC) documented in this encounter [facility]* Diagnosis Attention deficit hyperactivity [...] complication (CMS/HCC)- Primary documented in this encounter [facility] [...] rectum and anus documented in this encounter [facility]* Diagnosis Attention deficit hyperactivity disorder, [...] inattentive type (CMS/HCC) documented in this encounter [facility] HealthcareEvaluation [...] abnormal blood chemistry [facility]* Diagnosis Elevated LFTs- Primary Other abnormal blood chemistry documented in this encounter [facility]* Diagnosis Attention deficit hyperactivity disorder, predominantly [...] in partial remission, most recent episode manic ([facility]) Tremors of nervous system- Primary Mild intermittent asthma without complication ([facility]/HCC) Moderate persistent asthmatic bronchitis with acute exacerbation ([facility]/HCC)- Primary Sprain of anterior talofibular ligament of right ankle, subsequent encounter Snoring Other dyspnea and respiratory abnormality Peroneal tendon tear, right, initial encounter- Primary Sprain of anterior talofibular ligament of right ankle, subsequent encounter Osteochondritis dissecans of ankle, right Severe ankle sprain, right, initial encounter documented in this encounter [facility]* Diagnosis Right ankle instability- Primary Other joint derangement, not elsewhere classified, ankle and foot Right ankle instability Other joint derangement, not elsewhere classified, ankle and foot [facility] Diagnosis Sprain of anterior talofibular ligament of right ankle, initial encounter- Primary Right ankle instability Other joint derangement, not elsewhere classified, ankle and foot [facility] Diagnosis Attention deficit hyperactivity disorder, predominantly inattentive type (CMS/HCC)- Primary Bipolar disorder, in partial remission, most recent episode manic ([facility]) Dizziness Dizziness and giddiness Nonintractable episodic headache, unspecified headache type Attention deficit hyperactivity disorder, predominantly inattentive type (CMS/HCC)- Primary Anxiety Anxiety state, unspecified Bipolar disorder, in partial remission, most recent episode manic ([facility]/HCC) History of cholecystectomy Other acquired absence of organ History of acute pancreatitis Anaphylaxis, sequela Cough, unspecified type Bipolar disorder, in partial remission, most recent episode manic ([facility]/HCC)- Primary Attention deficit hyperactivity disorder (ADHD), [...] of spine- Primary [facility] Diagnosis ENGLISH (nonalcoholic steatohepatitis)- Primary Other chronic nonalcoholic liver disease Right ankle instability Other joint derangement, not elsewhere classified, ankle and foot [facility] Diagnosis Attention deficit hyperactivity disorder, [...] cervix and uterus documented in this encounter [facility]* Diagnosis BRBPR (bright red blood per rectum) Hemorrhage of rectum and anus [facility] Diagnosis Attention deficit hyperactivity disorder, [...] epileptic syndromes, not intractable, without status epilepticus ([facility]/HCC) 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[facility]/HCC) Other disorder of impulse control PTSD (post-traumatic stress disorder) ([facility]) Posttraumatic stress disorder [facility] Diagnosis Other specified dyspareunia- Primary Pelvic pain in female Unspecified symptom associated with female genital organs Pelvic pain in female- Primary Unspecified symptom associated with female genital organs Other specified dyspareunia [facility] Diagnosis Pelvic pain in female- Primary Unspecified symptom associated with female genital organs Other specified dyspareunia [facility] Diagnosis Chronic idiopathic constipation Unspecified constipation [facility] Diagnosis Attention deficit hyperactivity disorder, predominantly inattentive type (CMS/HCC)- Primary Bipolar disorder, in partial remission, most recent episode manic ([facility]) Dizziness Dizziness and giddiness Nonintractable episodic headache, unspecified headache type Attention deficit hyperactivity disorder, predominantly inattentive type (CMS/HCC)- Primary Anxiety Anxiety state, unspecified Bipolar disorder, in partial remission, most recent episode manic ([facility]/HCC) History of cholecystectomy Other acquired absence of organ History of acute pancreatitis Anaphylaxis, sequela Cough, unspecified type Bipolar disorder, in partial remission, most recent episode manic (CMS/HCC)- Primary Attention deficit hyperactivity disorder (ADHD), predominantly inattentive type (CMS/HCC) Attention deficit hyperactivity disorder, predominantly inattentive type ([facility]/HCC) Anxiety Anxiety state, unspecified Encounter for well [...] (post-traumatic stress disorder) (CMS/HCC) Posttraumatic stress disorder Peroneal tendon tear, right, initial encounter- Primary Right ankle instability Other joint derangement, not elsewhere classified, ankle and foot Contracture of right ankle [facility] [...] not intractable, 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) 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[facility]/HCC) Other disorder of impulse control PTSD (post-traumatic stress disorder) ([facility]) Posttraumatic stress disorder Anxiety Anxiety state, unspecified PTSD (post-traumatic stress disorder) ([facility]) Posttraumatic stress disorder [facility] [...] (post-traumatic stress disorder) (CMS/HCC) Posttraumatic stress disorder 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 Anxiety Anxiety state, unspecified PTSD (post-traumatic stress disorder) (CMS/HCC) Posttraumatic stress disorder 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 [facility] [...] (post-traumatic stress disorder) (CMS/HCC) Posttraumatic stress disorder 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 Anxiety Anxiety state, unspecified PTSD (post-traumatic stress disorder) (CMS/HCC) Posttraumatic stress disorder 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 Contusion of right ankle, initial encounter- Primary Peroneal tendon tear, right, initial [...] (post-traumatic stress disorder) (CMS/HCC) Posttraumatic stress disorder 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 Anxiety Anxiety state, unspecified PTSD (post-traumatic stress disorder) (CMS/HCC) Posttraumatic stress disorder 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 Sprain of anterior talofibular ligament of right ankle, subsequent encounter- Primary documented in this encounter [facility]* Diagnosis Palpitation- Primary Palpitations [facility] Diagnosis Attention deficit hyperactivity disorder, [...] (post-traumatic stress disorder) (CMS/HCC) Posttraumatic stress disorder 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 Anxiety Anxiety state, unspecified PTSD (post-traumatic stress disorder) (CMS/HCC) Posttraumatic stress disorder 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 Attention deficit hyperactivity disorder (ADHD), predominantly inattentive type (CMS/HCC) Bipolar disorder, in partial remission, most recent episode manic (CMS/HCC) 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CMS/HCC) Agoraphobia with panic disorder documented [facility] [...] (post-traumatic stress disorder) (CMS/HCC) Posttraumatic stress disorder 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 Anxiety Anxiety state, unspecified PTSD (post-traumatic stress disorder) (CMS/HCC) Posttraumatic stress disorder 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 Obesity (BMI 35.0-39.9 without comorbidity) documented in [...] (post-traumatic stress disorder) (CMS/HCC) Posttraumatic stress disorder 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 Anxiety Anxiety state, unspecified PTSD (post-traumatic stress disorder) (CMS/HCC) Posttraumatic stress disorder 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 Mood swings- Primary Other specified episodic mood disorder Bipolar disorder, in partial remission, most recent episode manic (CMS/HCC) Anxiety Anxiety state, unspecified Sinus tachycardia Other specified cardiac dysrhythmias documented in this encounter [facility]* [...] in partial remission, most recent episode manic ([facility]) Tremors of nervous system- Primary Mild intermittent asthma without complication ([facility]) Moderate persistent asthmatic bronchitis with acute exacerbation ([facility])- Primary Sprain of anterior talofibular ligament of right ankle, subsequent encounter Snoring Other dyspnea and respiratory abnormality 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[facility])- Primary 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), predominantly inattentive type ([facility]) Bipolar disorder, in partial remission, most recent episode manic ([facility]) Prediabetes Other abnormal glucose Anxiety- Primary Anxiety state, unspecified Generalized idiopathic epilepsy and epileptic syndromes, not intractable, without status epilepticus ([facility]) 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[facility]) Other disorder of impulse control PTSD (post-traumatic stress disorder) ([facility]) Posttraumatic stress disorder 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[facility])- Primary Agoraphobia with panic disorder Anxiety Anxiety state, unspecified PTSD (post-traumatic stress disorder) ([facility]) Posttraumatic stress disorder 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[facility]) Other disorder of impulse control Mood swings- Primary Other specified episodic mood disorder Bipolar disorder, in partial remission, most recent episode manic ([facility]) Anxiety Anxiety state, unspecified Sinus tachycardia Other specified cardiac dysrhythmias Sprain of anterior talofibular ligament of right ankle, subsequent encounter- Primary Right ankle instability Other joint derangement, not elsewhere classified, ankle and foot documented [facility] - Reported* Type Description Date Medical History Anxiety Medical History Depression Medical History Diverticulosis Medical History bipolar Surgical History C section Surgical History hysterectomy Hospitalization History see above Hospitalization History diverticulitis 01/24/18 Hospitalization History NONE ON THE LAST YEAR [facility] Other Hospital course Narrative No data available for this [facility] No data available for this section [facility] No data available for this section [facility] ([facility] Outpatient Procedure (Routine) - Authorized Specialty Diagnoses / Procedures Referred By Norma t Referred To Contact [facility] Diagnoses Bilious vomiting with nausea Right sided abdominal pain Procedures EGD DIAGNOSTIC ESOPHAGOGASTRODUODENOSC [place] [address] [place] [address] [facility] [address] [place] [address] Referral ID Status Reason Start Date Expiration Date Visits Requested Visits Authorized [id number] Authorized Auto-Generat ed Referral 05/27/2022 05/27/2023 1 1 * MRI/CT (Routine) - Authorized Specialty Diagnoses / Procedures Referred By Contac t Referred To Contact CT IMAGING Diagnoses Bilious vomiting with nausea Right sided abdominal pain Nausea Procedures CT ABD/PEL WO IVCON CT ABD & PELVIS W/O CONTRAST Carol Winn MD [address] [place], [place] [address] [address] Ct Imaging Referral ID Status Reason Start Date Expiration Date Visits Requested Visits Authorized [id number] Authorized Auto-Generat ed Referral 05/27/2022 06/26/2023 1 1 [facility] for referral (narrative)* Diagnostic Procedure Only (Routine) - Authorized Specialty Diagnoses / Procedures Referred By Contac t Referred To Contact [facility] Diagnoses Liver lesion Procedures US ABD RT UPPER QUADRANT US ABDOMINAL REAL [place] W/[place] [address] [place] [address] [facility] Referral ID Status Reason Start Date Expiration Date Visits Requested Visits Authorized [id number] Authorized Auto-Generat ed Referral 06/14/2022 07/14/2023 1 1 [facility] for referral (narrative)* Diagnostic Procedure Only (Routine) - Closed Specialty Diagnoses / Procedures Referred By Contac t Referred To Contact [facility] Diagnoses Liver lesion Procedures US ABD RT UPPER QUADRANT US ABDOMINAL [place] W/[place] [address] [place] [address] [place] [address] Referral ID Status Reason Start Date Expiration Date V isits Requested Visits Authorized [id number] Closed Auto-Generate d Referral 06/14/2022 07/14/2023 1 1 [facility] for referral (narrative)* Diagnostic Procedure Only (Routine) - Closed Specialty Diagnoses / Procedures Referred By Contac t Referred To Contact [facility] Diagnoses Elevated LFTs Procedures US ABD RT UPPER QUADRANT US ABDOMINAL REAL TIME W/IMAGE LIMITED Carol Winn [place] [id number] [place] [address] [place] [address] Referral ID Status Reason Start Date Expiration Date V isits Requested Visits Authorized [id number] Closed Auto-Generate d Referral 11/24/2021 12/24/2022 1 1 [facility] for referral (narrative)* Diagnostic Procedure Only (Routine) - Closed Specialty Diagnoses / Procedures Referred By Contac t Referred To Contact [facility] Diagnoses Nausea Procedures NM GASTRIC EMPTYING SOLID GASTRIC EMPTYING STUDY Carol Winn MD [id number] [place] [address] [facility] [address] [place] [address] Referral ID Status Reason Start Date Expiration Date V isits Requested Visits Authorized [id number] Closed Auto-Generate d Referral 08/31/2022 09/30/2023 1 1 [facility] for referral (narrative)* Outpatient Procedure (Routine) - Authorized Specialty Diagnoses / Procedures Referred By Contac t Referred To [facility] Diagnoses Gastroparesis Procedures ECG COMPLETE ECG ROUTINE ECG W/LEAST 12 LDS W/I&R Solo Mora MD [address] [place] [address] [address] Referral ID Status Reason Start Date Expiration Date Visits Requested Visits Authorized [id number] Authorized Auto-Generat ed Referral 11/02/2023 11/01/2024 1 1 [facility] for referral (narrative)* Outpatient Procedure (Routine) - Authorized Specialty Diagnoses / Procedures Referred By Contac t Referred To Contact [facility] [place] Diagnoses Syncope and collapse Procedures ECG COMPLETE ECG ROUTINE ECG W/LEAST 12 [facility] W/I&R Solo Mora MD [id number] [address] Referral ID Status Reason Start Date Expiration Date Visits Requested Visits Authorized [id number] Authorized Auto-Generat ed Referral 12/19/2023 12/18/2024 1 1 [facility] for referral (narrative)* Diagnostic Procedure Only (Routine) - Closed Specialty Diagnoses / Procedures Referred By Contac t Referred To Contact [facility] Diagnoses Nausea Procedures NM GASTRIC EMPTYING SOLID [place] [address] [place] [address] [facility] [address] [place] [address] Referral ID Status Reason Start Date Expiration Date V isits Requested Visits Authorized [id number] Closed Auto-Generate d Referral 08/31/2022 09/30/2023 1 1 * Outpatient Procedure (Routine) - Closed Specialty Diagnoses / Procedures Referred By Contac t Referred To Contact [facility] Diagnoses PUD (peptic ulcer disease) Procedures EGD DIAGNOSTIC ESOPHAGOGASTRODUODENOSC OPY TRANSORAL DI[place]NOSTIC Carol Winn [place] [id number] [place] [phone] [address] Referral ID Status Reason Start Date Expiration Date V isits Requested Visits Authorized [id number] Closed Auto-Generate d Referral 06/30/2022 07/01/2023 1 1 [facility] for referral (narrative)* Outpatient Procedure (Routine) - Closed Specialty Diagnoses / Procedures Referred By Norma kennedy Referred To Contact [facility] [place] Diagnoses PUD (peptic ulcer disease) Procedures EGD DIAGNOSTIC ESOPHAGOGASTRODUODENOSC OPY TRANSORAL DIAGNOSTIC Carol Winn MD [id number] [place] [phone] [address] Referral ID Status Reason Start Date Expiration Date V isits Requested Visits Authorized [id number] Closed Auto-Generate d Referral 06/30/2022 07/01/2023 1 1 * Outpatient Procedure (Routine) - Closed Specialty Diagnoses / Procedures Referred By Norma kennedy Referred To Contact [facility] Diagnoses Bilious vomiting with nausea Right sided abdominal pain Procedures EGD DIAGNOSTIC ESOPHAGOGASTRODUODENOSC OPY [place] [address] [place] [address] [facility] [address] [place] [address] Referral ID Status Reason Start Date Expiration Date V isits Requested Visits Authorized [id number] Closed Auto-Generate d Referral 05/27/2022 05/27/2023 1 1 [facility] for referral (narrative)* Outpatient Procedure (Routine) - Authorized Specialty Diagnoses / Procedures Referred By Contac t Referred To Contact [facility] [place] Diagnoses BRBPR (bright red blood per rectum) Procedures COLONOSCOPY DIAGNOSTIC COLONOSCOPY FLX DX W/COLLJ SPEC WHEN PFRMD Iliana Mercado PA-C [address] [place] [address] [address] Referral ID Status Reason Start Date Expiration Date Visits Requested Visits Authorized [id number] Authorized Auto-Generat ed Referral 04/26/2024 04/26/2025 1 1 * Outpatient Procedure (Routine) - Authorized Specialty Diagnoses / Procedures Referred By Contac t Referred To Contact [facility] Diagnoses Elevated LFTs Procedures DDI VIBRATION CONTROLLED TRANSIENT ELASTOGRAPHY (VCTE) LIVER ELASTOGRAPHY W/O IMAG W/I&R Iliana Mercado PA-C [address] [place] [address] [address] Referral ID Status Reason Start Date Expiration Date Visits Requested Visits Authorized [id number] Authorized Auto-Generat ed Referral 04/26/2024 04/26/2025 1 1 [facility] for referral (narrative)* Outpatient Procedure (Routine) - Pending Review Specialty Diagnoses / Procedures Referred By Contac t Referred To Contact [facility] [place] Diagnoses ENGLISH (nonalcoholic steatohepatitis) Procedures LIVER BIOPSY NEEDLE BIOPSY LIVER NEEDLE PERCUTANEOUS Rosario Mcconnell I, MD [address] [place] [address] [address] Referral ID Status Reason Start Date Expiration Date Visits Requested Visits Authorized [id number] Pending Review Auto-Generat ed Referral 05/14/2024 05/14/2025 1 1 [facility] for referral (narrative)* Outpatient Procedure (Routine) - Closed Specialty Diagnoses / Procedures Referred By Contac t Referred To Contact [facility] Diagnoses BRBPR (bright red blood per rectum) Procedures COLONOSCOPY DIAGNOSTIC COLONOSCOPY FLX DX W/COLLJ SPEC WHEN Iliana Parsons PA-C [address] [place] [address] [facility] [address] [place] [address] Referral ID Status Reason Start Date Expiration Date V isits Requested Visits Authorized [id number] Closed Auto-Generate d Referral 04/26/2024 04/26/2025 1 1 [facility] for visit NarrativePATIENT HERE AT THE REQUEST OF DR. HAGEN FOR ENGLISH & ABNORMAL US. ULTRASOUND AND LABS IN REFERRAL. PATIENT STATES SHE FEELS LETHARGIC & HAS OCCASIONAL ABDOMINAL PAINThorofare VocalizeLocal Other [facility] Narrative* Diagnostic Procedure Only (Routine) - Closed Specialty Diagnoses / Procedures Referred By Contac t Referred To Contact [facility] Diagnoses Liver lesion Procedures US ABD RT UPPER QUADRANT US ABDOMINAL REAL [place] W/[place] [address] [place] [address] [place] [address] Referral ID Status Reason Start Date Expiration Date V isits Requested Visits Authorized [id number] Closed Auto-Generate d Referral 06/14/2022 07/14/2023 1 1 [facility] for visit Narrative* Diagnostic Procedure Only (Routine) - Closed Specialty Diagnoses / Procedures Referred By Contac t Referred To Contact [facility] Diagnoses Elevated LFTs Procedures US ABD RT UPPER QUADRANT US ABDOMINAL REAL [place] W/[place] [address] [place] [address] [place] [address] Referral ID Status Reason Start Date Expiration Date V isits Requested Visits Authorized [id number] Closed Auto-Generate d Referral 11/24/2021 12/24/2022 1 1 [facility] for visit Narrative* Diagnostic Procedure Only (Routine) - Closed Specialty Diagnoses / Procedures Referred By Norma kennedy Referred To Contact [facility] Diagnoses Nausea Procedures NM GASTRIC EMPTYING SOLID [place] [address] [place] [address] [facility] [address] [place] [address] Referral ID Status Reason Start Date Expiration Date V isits Requested Visits Authorized [id number] Closed Auto-Generate d Referral 08/31/2022 09/30/2023 1 1 [facility] for visit Narrative* Outpatient Procedure (Routine) - Closed Specialty Diagnoses / Procedures Referred By Norma kennedy Referred To Contact [facility] [place] Diagnoses PUD (peptic ulcer disease) Procedures EGD DIAGNOSTIC ESOPHAGOGASTRODUODENOSC OP[place] [address] [place] [address] [facility] [place] [address] [place] [address] Referral ID Status Reason Start Date Expiration Date V isits Requested Visits Authorized [id number] Closed Auto-Generate d Referral 06/30/2022 07/01/2023 1 1 [facility] for visit Narrative* Outpatient Procedure (Routine) - Closed Specialty Diagnoses / Procedures Referred By Norma kennedy Referred To Contact [facility] Diagnoses Bilious vomiting with nausea Right sided abdominal pain Procedures EGD DIAGNOSTIC ESOPHAGOGASTRODUODENOSC OPY [place] [address] [place] [address] [facility] [place] [address] [place] [address] Referral ID Status Reason Start Date Expiration Date V isits Requested Visits Authorized [id number] Closed Auto-Generate d Referral 05/27/2022 05/27/2023 1 1 [facility] for visit Narrative* Rehabilitation - Outpatient (Routine) - Authorized Specialty Diagnoses / Procedures Referred By Norma t Referred To Contact Physical Therapy Diagnoses Cervical radiculopathy Procedures [place] OFFICE/OUTPATIENT [facility] 60 MINUTES Giovani Hagen MD [address] [address] Phone: tel: fax: Zhen Burgess, PT [address] [address] Phone: tel: fax: Referral ID Status Reason Start Date Expiration Date Visits Requested Visits Authorized [id number] Authorized Specialty Services Required 01/25/2024 10/21/2024 25 25 [facility]* Rehabilitation - Outpatient (Routine) - Authorized Specialty Diagnoses / Procedures Referred By Norma kennedy Referred To Contact Physical Therapy Diagnoses Cervical radiculopathy Unspecified injury of right ankle, subsequent encounter Procedures [place] OFFICE/OUTPATIENT [facility] 60 MINUTES Giovani Hagen MD 112 [facility] [address] [place] [address] Phone: tel: fax: Zhen Burgess, PT [address] [address] Phone: tel: fax: Referral ID Status Reason Start Date Expiration Date Visits Requested Visits Authorized [id number] Authorized Specialty Services Required 01/25/2024 10/21/2024 25 25 [facility] Outpatient Procedure (Routine) - Closed Specialty Diagnoses / Procedures Referred By Norma kennedy Referred To Contact [facility] Diagnoses Elevated LFTs Procedures DDI VIBRATION CONTROLLED TRANSIENT ELASTOGRAPHY (VCTE) LIVER ELASTOGRAPHY W/O IMAG W/I&R Iliana Mercado PA-C [id number] [id number] [facility] [address] [place] [address] Referral ID Status Reason Start Date Expiration Date V isits Requested Visits Authorized [id number] Closed Auto-Generate d Referral 04/26/2024 04/26/2025 1 1 [facility] for visit Narrative* Outpatient Procedure (Routine) - Closed Specialty Diagnoses / Procedures Referred By Norma t Referred To Contact [facility] Diagnoses BRBPR (bright red blood per rectum) Procedures COLONOSCOPY DIAGNOSTIC COLONOSCOPY FLX DX W/COLLJ SPEC WHEN PFRMD Iliana Mercado PA-C [id number] [place] [address] [address] Referral ID Status Reason Start Date Expiration Date V isits Requested Visits Authorized [id number] Closed Auto-Generate d Referral 04/26/2024 04/26/2025 1 1 [facility] for visit Narrative* Diagnostic Procedure Only (Routine) - Closed Specialty Diagnoses / Procedures Referred By Norma kennedy Referred To Contact [facility] Diagnoses Other specified dyspareunia Pelvic pain in female Procedures PELVIC US WHI US PELVIC NONOBSTETRIC REAL-TIME IMAGE COMPLETE Javy Boudreaux MD [address] [address] Phone: tel: fax: [address] [address] Referral ID Status Reason Start Date Expiration Date V isits Requested Visits Authorized [id number] Closed Auto-Generate d Referral 07/10/2024 07/10/2025 1 1 [facility] for visit Narrative* Diagnostic Procedure Only (Routine) - Closed Specialty Diagnoses / Procedures Referred By Norma kennedy Referred To Contact XR IMAGING Diagnoses Chronic idiopathic constipation Procedures XR ABDOMEN 2V ROUTINE SUPINE W UPRIGHT/DECUB/CTL RADIOLOGIC EXAM ABDOMEN 2 VIEWS Iliana Mercado PA-C [id number] [place] [address] Phone: tel: fax: [place] [address] Referral ID Status Reason Start Date Expiration Date V isits Requested Visits Authorized [id number] Closed Auto-Generate d Referral 07/09/2024 08/07/2025 1 1 [facility] Summary Purpose Family History No Family History Records Found Relationship Condition Age at Onset Recorded Date/T estiven mother Hypertension Unknown Family history of mental disorder Unknown Advance Directives No Advanced Directives Records Found Advance Directive Response Recorded Date/ Time Advance Directives No December 10, 2018 10:13am Advance Directive Response Recorded Date/ Time Advance Directives No December 10, 2018 11:13am Chief Complaint and Reason for Visit Chief Complaint ENGLISH, Elevated Liver Enyzmes Chief Complaint R93.89 Chief Complaint Admit Date MDD August 16, 2024 4:4 0pm MDD August 17, 2024 7:2 2am Reason for Visit Admit Date Major depressive disorder, recurrent, mo derate August 16, 2024 4:40pm Reason for Referral Specialty Diagnoses / Procedures Referred By Contac t Referred To Contact Radiology Diagnoses Cervical radiculopathy Procedures MR cervical spine wo contrast Giovani Hagen MD [address] [place] [address] Referral ID Status Reason Start Date Expiration Date V isits Requested Visits Authorized [id number] Pending Review 01/09/2024 07/07/2024 1 1 Specialty Diagnoses / Procedures Referred By Contac t Referred To Contact Diagnoses Attention deficit hyperactivity disorder (ADHD), predominantly inattentive type (CMS/HCC) Giovani Hagen MD [address] [address] Referral ID Status Reason Start Date Expiration Date Visits Re quested Visits Authorized [id number] Closed 1 1 Specialty Diagnoses / Procedures Referred By Contac t Referred To Contact Diagnoses Attention deficit hyperactivity disorder (ADHD), predominantly inattentive type (CMS/HCC) Giovani Hagen MD [address] [address] Referral ID Status Reason Start Date Expiration Date V isits Requested Visits Authorized [id number] Pending Review 01/08/2024 07/06/2024 1 1 Specialty Diagnoses / Procedures Referred By Contac t Ref[facility] Diagnoses Syncope, unspecified syncope type Procedures CARDIOVASCULAR MEDICINE OP FOLLOW UP APPT ORDER Solo Mora MD [address] [place] [address] [facility] [address] [place] [id number] Referral ID Status Reason Start Date Expiration Date Visits Requested Visits Authorized [id number] Ref Not Required PCP Requested Referral 12/28/2023 12/27/2024 1 1 Specialty Diagnoses / Procedures Referred By Contac t Referred To Contact [facility] [place] Diagnoses Syncope, unspecified syncope type Procedures STRESS ECHO TREADMILL ECHO TTHRC R-T 2D W/WO M-MODE COMPLETE REST&ST Solo Mora MD [address] [id number] [place] [id number] Referral ID Status Reason Start Date Expiration Date Visits Requested Visits Authorized [id number] Authorized Auto-Generat ed Referral 12/19/2023 12/18/2024 1 1 Specialty Diagnoses / Procedures Referred By Contac t Referred To Contact CT IMAGING Diagnoses Bilious vomiting with nausea Right sided abdominal pain Nausea Procedures CT ABD/PEL WO IVCON CT ABD & PEL[place] [address] [place] [address] Ct Imaging [id number] Referral ID Status Reason Start Date Expiration Date V isits Requested Visits Authorized [id number] Closed Auto-Generate d Referral 05/27/2022 06/26/2023 1 1 Additional Source Comments INFORMATION SOURCE (unrecogn ized section and content) DATE CREATED AUTHOR 11/09/2018 [facility] DATE CREATED AUTHOR AUTHOR'S ORGANIZ ATION 08/23/2021 [facility] DATE CREATED AUTHOR AUTHOR'S ORGANIZ ATION 07/17/2022 [facility] DATE CREATED AUTHOR AUTHOR'S ORGANIZ ATION 03/22/2023 [facility] DATE CREATED AUTHOR AUTHOR'S ORGANIZ ATION 03/28/2023 [facility] DATE CREATED AUTHOR AUTHOR'S ORGANIZ ATION 04/07/2024 [facility] DATE CREATED AUTHOR AUTHOR'S ORGANIZ ATION 04/12/2024 [facility] DATE CREATED AUTHOR AUTHOR'S ORGANIZ ATION 05/04/2024 [facility] DATE CREATED AUTHOR AUTHOR'S ORGANIZ ATION 08/11/2024 [facility] DATE CREATED AUTHOR AUTHOR'S ORGANIZ ATION 08/28/2024 [facility] DATE CREATED AUTHOR AUTHOR'S ORGANIZ ATION 09/05/2024 [facility] DATE CREATED AUTHOR AUTHOR'S ORGANIZ ATION 09/06/2024 [facility] d[facility] Specialists [facility] Care Teams (unrecognized sec tion and content) Team Status: Active Member Role Status Dates Giovani Hagen MD Primary Care Provider Active Team Status: Inactive Member Role Status Dates Erwin Hylton MD Attending Provider Active Giovani Hagen MD Primary Care Provider Active Nurses Director Relationship Specialty Start Date End Date BastianGiovani Mabalay [address] [place] [address] [place] [address] PCP - General Family Medicine 03/27/19 Nurses Director Relationship Specialty Start Date End Date HieuGiovani Mabalay [address] [place] [address] [place] [address] PCP - General Family Medicine 03/27/19 Nurses Director Relationship Specialty Start Date End Date HieuGioavni Mabalay [address] [place] [address] [place] [address] PCP - General Family Medicine 03/27/19 Nurses Director Relationship Specialty Start Date End Date HieuGiovani Mabalay [address] [place] [address] [place] [address] PCP - General Family Medicine 03/27/19 Nurses Director Relationship Specialty Start Date End Date BastianGiovani Mabalay [address] [place] [address] [place] [address] PCP - General Family Medicine 03/27/19 Nurses Director Relationship Specialty Start Date End Date BastianGiovani Mabalay [address] [place] [address] [place] [address] PCP - General Family Medicine 03/27/19 Nurses Director Relationship Specialty Start Date End Date BastianGiovani Mabalay [address] [place] [address] [place] [address] PCP - General Family Medicine 03/27/19 Nurses Director Relationship Specialty Start Date End Date Giovani Hagen [address] [place] [address] [place] [address] PCP - General Family Medicine 03/27/19 Nurses Director Relationship Specialty Start Date End Date Giovani Hagen [address] [place] [address] [place] [address] PCP - General Family Medicine 03/27/19 Nurses Director Relationship Specialty Start Date End Date Giovani Hagen [address] [place] [address] [place] [address] PCP - General Family Medicine 03/27/19 Nurses Director Relationship Specialty Start Date End Date Hieu Nikobety Daviscbarmando [address] [place] [address] [place] [address] PCP - General Family Medicine 03/27/19 Nurses Director Relationship Specialty Start Date End Date HieuGiovani [address] [place] [address] [place] [address] PCP - General Family Medicine 03/27/19 Nurses Director Relationship Specialty Start Date End Date HieuGiovani [address] [place] [address] [place] [address] PCP - General Family Medicine 03/27/19 Nurses Director Relationship Specialty Start Date End Date Hieu Giovani Rust [address] [place] [address] [place] [address] PCP - General Family Medicine 03/27/19 Nurses Director Relationship Specialty Start Date End Date Giovani Hagen MD [address] [place] [address] [place] [address] PCP - General Family Medicine 03/27/19 Nurses Director Relationship Specialty Start Date End Date Giovani Hagen MD [address] [place] [address] [place] [address] PCP - General Family Medicine 03/27/19 Nurses Director Relationship Specialty Start Date End Date Giovani Hagen MD [address] [place] [address] [place] [address] PCP - General Family Medicine 03/27/19 Nurses Director Relationship Specialty Start Date End Date Giovani Hagen MD [address] [place] [address] [place] [address] PCP - General Family Medicine 03/27/19 Nurses Director Relationship Specialty Start Date End Date Giovani Hagen MD [address] [place] [address] [place] [address] PCP - General Family Medicine 03/27/19 Nurses Director Relationship Specialty Start Date End Date Giovani Hagen MD [address] [place] [address] [place] [address] PCP - General Family Medicine 03/27/19 Nurses Director Relationship Specialty Start Date End Date Giovani Hagen MD [address] [place] [address] [place] [address] PCP - General Family Medicine 03/27/19 Nurses Director Relationship Specialty Start Date End Date Giovani Hagen MD [address] [place] [address] [place] [address] PCP - General Family Medicine 03/27/19 Nurses Director Relationship Specialty Start Date End Date Giovani Hagen MD [address] [place] [address] [place] [address] PCP - General Family Medicine 03/27/19 Nurses Director Relationship Specialty Start Date End Date Giovani Hagen MD [address] [place] [address] [place] [address] PCP - General Family Medicine 03/27/19 Nurses Director Relationship Specialty Start Date End Date Giovani Hagen MD [address] [place] [address] [place] [address] PCP - General Family Medicine 03/27/19 Nurses Director Relationship Specialty Start Date End Date Giovani Hagen MD [address] [place] [address] [place] [address] PCP - General Family Medicine 03/27/19 Nurses Director Relationship Specialty Start Date End Date Giovani Hagen MD [address] [place] [address] [place] [address] PCP - General Family Medicine 03/27/19 Nurses Director Relationship Specialty Start Date End Date Giovani Hagen MD [address] [place] [address] [place] [address] PCP - Medical [employer] 10/22/18 04/23/99 Giovani Hagen MD [address] [place] [address] [place] [address] PCP - General Family Medicine 08/30/22 Nurses Director Relationship Specialty Start Date End Date Giovani Hagen MD [address] [place] [address] [place] [address] PCP - Medical [employer] 10/22/18 04/23/99 Giovani Hagen MD [address] [place] [address] [place] [address] PCP - General Family Medicine 08/30/22 Nurses Director Relationship Specialty Start Date End Date Giovani Hagen MD [address] [place] [address] [place] [address] PCP - Medical [employer] 10/22/18 04/23/99 Giovani Hgaen MD [address] [place] [address] [place] [address] PCP - General Family Medicine 08/30/22 Nurses Director Relationship Specialty Start Date End Date Giovani Hagen MD [address] [place] [address] [place] [address] PCP - Medical [employer] 10/22/18 04/23/99 Giovani Hagen MD [address] [place] [address] [place] [address] PCP - General [facility] Medicine 08/30/22 Nurses Director Relationship Specialty Start Date End Date Giovani Hagen MD [address] [place] [address] [place] [address] PCP - Medical [employer] 10/22/18 04/23/99 Giovani Hagen MD [address] [place] [address] [place] [address] PCP - General Family Medicine 08/30/22 Nurses Director Relationship Specialty Start Date End Date Giovani Hagen MD [address] [place] [address] [place] [address] PCP - Medical [employer] 10/22/18 04/23/99 Giovani Hagen MD [address] [place] [address] [place] [address] PCP - General Family Medicine 08/30/22 Nurses Director Relationship Specialty Start Date End Date Giovani Hagen MD [address] [place] [address] [place] [address] PCP - Medical [employer] 10/22/18 04/23/99 Giovani Hagen MD [address] [place] [address] [place] [address] PCP - General Family Medicine 08/30/22 Nurses Director Relationship Specialty Start Date End Date Giovani Hagen MD [address] [place] [address] [place] [address] PCP - Medical [employer] 10/22/18 04/23/99 Giovani Hagen MD [address] [place] [address] [place] [address] PCP - General [facility] Medicine 08/30/22 Nurses Director Relationship Specialty Start Date End Date Giovani Hagen MD [address] [place] [address] [place] [address] PCP - Medical [employer] 10/22/18 04/23/99 Giovani aHgen MD [address] [place] [address] [place] [address] PCP - General Family Medicine 08/30/22 Nurses Director Relationship Specialty Start Date End Date Giovani Hagen MD [address] [place] [address] [place] [address] PCP - Medical [employer] 10/22/18 04/23/99 Giovani Hagen MD [address] [place] [address] [place] [address] PCP - General Family Medicine 08/30/22 Nurses Director Relationship Specialty Start Date End Date Giovani Hagen MD [address] [place] [address] [place] [address] PCP - Medical [employer] 10/22/18 04/23/99 Giovani Hagen MD [address] [place] [address] [place] [address] PCP - General Family Medicine 08/30/22 Nurses Director Relationship Specialty Start Date End Date Giovani Hagen MD [address] [place] [address] [place] [address] PCP - Medical [employer] 10/22/18 04/23/99 Giovani Hagen MD [address] [place] [address] [place] [address] PCP - General [facility] Medicine 08/30/22 Nurses Director Relationship Specialty Start Date End Date Giovani Hagen MD [address] [place] [address] [place] [address] PCP - Medical [employer] 10/22/18 04/23/99 Giovani Hagen MD [address] [place] [address] [place] [address] PCP - General Family Medicine 08/30/22 Nurses Director Relationship Specialty Start Date End Date Giovani Hagen MD [address] [place] [address] [place] [address] PCP - Medical [employer] 10/22/18 04/23/99 Giovani Hagen MD [address] [place] [address] [place] [address] PCP - General Family Medicine 08/30/22 Nurses Director Relationship Specialty Start Date End Date Giovani Hagen MD [address] [place] [address] [place] [address] PCP - Medical [employer] 10/22/18 04/23/99 Giovani Hagen MD [address] [place] [address] [place] [address] PCP - General Family Medicine 08/30/22 Nurses Director Relationship Specialty Start Date End Date Giovani Hagen MD [address] [place] [address] [place] [address] PCP - Medical [employer] 10/22/18 04/23/99 Giovani Hagen MD [address] [place] [address] [place] [address] PCP - General [facility] Medicine 08/30/22 Nurses Director Relationship Specialty Start Date End Date Giovani Hagen MD [address] [place] [address] [place] [address] PCP - Medical [employer] 10/22/18 04/23/99 Giovani Hagen MD [address] [place] [address] [place] [address] PCP - General Family Medicine 08/30/22 Nurses Director Relationship Specialty Start Date End Date Giovani Hagen MD [address] [place] [address] [place] [address] PCP - Medical [employer] 10/22/18 04/23/99 Giovani Hagen MD [address] [place] [address] [place] [address] PCP - General Family Medicine 08/30/22 Nurses Director Relationship Specialty Start Date End Date Giovani Hagen MD [address] [place] [address] [place] [address] PCP - Medical [employer] 10/22/18 04/23/99 Giovani Hagen MD [address] [place] [address] [place] [address] PCP - General Family Medicine 08/30/22 Nurses Director Relationship Specialty Start Date End Date Giovani Hagen MD [address] [place] [address] [place] [address] PCP - Medical [employer] 10/22/18 04/23/99 Giovani Hagen MD [address] [place] [address] [place] [address] PCP - General [facility] Medicine 08/30/22 Nurses Director Relationship Specialty Start Date End Date Giovani Hagen MD [address] [place] [address] [place] [address] PCP - Medical [employer] 10/22/18 04/23/99 Giovani Hagen MD [address] [place] [address] [place] [address] PCP - General Family Medicine 08/30/22 Nurses Director Relationship Specialty Start Date End Date Giovani Hagen MD [address] [place] [address] [place] [address] PCP - Medical [employer] 10/22/18 04/23/99 Giovani Hagen MD [address] [place] [address] [place] [address] PCP - General Family Medicine 08/30/22 Nurses Director Relationship Specialty Start Date End Date Giovani Hagen MD [address] [place] [address] [place] [address] PCP - Medical [employer] 10/22/18 04/23/99 Giovani Hagen MD [address] [place] [address] [place] [address] PCP - General Family Medicine 08/30/22 Nurses Director Relationship Specialty Start Date End Date Giovani Hagen MD [address] [place] [address] [place] [address] PCP - Medical [employer] 10/22/18 04/23/99 Giovani Hagen MD [address] [facility] [address] [place] [address] PCP - General Family Medicine 08/30/22 Nurses Director Relationship Specialty Start Date End Date Giovani Hagen MD [address] [place] [address] [place] [address] PCP - General Family Medicine 03/27/19 Nurses Director Relationship Specialty Start Date End Date Giovani Hagen MD [address] [place] [address] [place] [address] PCP - Medical [employer] 10/22/18 04/23/99 Giovani Hagen MD [address] [place] [address] [place] [address] PCP - General Family Medicine 08/30/22 Nurses Director Relationship Specialty Start Date End Date Giovani Hagen MD [address] [place] [address] [place] [address] PCP - General Family Medicine 03/27/19 Deena Lyn, ISABEL [address] [place] [address] [place] [address] Referring Family Medicine 04/03/24 Nurses Director Relationship Specialty Start Date End Date Giovani Hagen MD [address] [place] [address] [place] [address] PCP - General Family Medicine 03/27/19 Deena Lyn, ISABEL [address] [place] [address] [place] [address] Referring Family Medicine 04/03/24 Nurses Director Relationship Specialty Start Date End Date Giovani Hagen MD [address] [place] [address] [place] [address] PCP - Medical [employer] 10/22/18 04/23/99 Giovani Hagen MD [address] [place] [address] [place] [address] PCP - General Family Medicine 08/30/22 Nurses Director Relationship Specialty Start Date End Date Giovani Hagen MD [address] [place] [address] [place] [address] PCP - Medical [employer] 10/22/18 04/23/99 Giovani Hagen MD [address] [place] [address] [place] [address] PCP - General Family Medicine 08/30/22 Nurses Director Relationship Specialty Start Date End Date Giovani Hagen MD [address] [place] [address] [place] [address] PCP - Medical [employer] 10/22/18 04/23/99 Giovani Hagen MD [address] [place] [address] [place] [address] PCP - General Family Medicine 08/30/22 Nurses Director Relationship Specialty Start Date End Date Giovani Hagen MD [address] [place] [address] [place] [address] PCP - Medical [employer] 10/22/18 04/23/99 Giovani Hagen MD [address] [place] [address] [place] [address] PCP - General Family Medicine 08/30/22 Nurses Director Relationship Specialty Start Date End Date Giovani Hagen MD [address] [place] [address] [place] [address] PCP - Medical [employer] 10/22/18 04/23/99 Giovani Hagen MD [address] [place] [address] [place] [address] PCP - General Family Medicine 08/30/22 Nurses Director Relationship Specialty Start Date End Date Giovani Hagen MD [address] [place] [address] [place] [address] PCP - Medical [employer] 10/22/18 04/23/99 Giovani Hagen MD [address] [place] [address] [place] [address] PCP - General Family Medicine 08/30/22 Nurses Director Relationship Specialty Start Date End Date Giovani Hagen MD [address] [place] [address] [place] [address] PCP - Medical [employer] 10/22/18 04/23/99 Giovani Hagen MD [address] [place] [address] [place] [address] PCP - General Family Medicine 08/30/22 Nurses Director Relationship Specialty Start Date End Date Giovani Hagen MD [address] [place] [address] [place] [address] PCP - General Family Medicine 03/27/19 Deena Lyn CNP [address] [place] [address] [place] [address] [facility] Family Medicine 04/03/24 Nurses Director Relationship Specialty Start Date End Date Giovani Hagen MD [address] [place] [address] [place] [address] PCP - Medical [employer] 10/22/18 04/23/99 Giovani Hagen MD [address] [place] [address] [place] [address] PCP - General Family Medicine 08/30/22 Nurses Director Relationship Specialty Start Date End Date Giovani Hagen MD [address] [place] [address] [place] [address] PCP - Medical [employer] 10/22/18 04/23/99 Giovani Hagen MD [address] [place] [address] [place] [address] PCP - General Family Medicine 08/30/22 Nurses Director Relationship Specialty Start Date End Date Giovani Hagen MD [address] [place] [address] [place] [address] PCP - Medical [facility] 10/22/18 04/23/99 Giovani Hagen MD [address] [place] [address] [place] [address] PCP - General Family Medicine 08/30/22 Nurses Director Relationship Specialty Start Date End Date Giovani Hagen MD [address] [place] [address] [place] [address] PCP - General Family Medicine 03/27/19 Deena Lyn, ISABEL [address] [place] [address] [place] [address] Referring Family Medicine 04/03/24 Nurses Director Relationship Specialty Start Date End Date Giovani Hagen MD [address] [place] [address] [place] [address] PCP - General Family Medicine 03/27/19 Deena Lyn, ISABEL [address] [place] [address] [place] [address] Referring Family Medicine 04/03/24 Nurses Director Relationship Specialty Start Date End Date Giovani Hagen MD [address] [place] [address] [place] [address] PCP - General Family Medicine 03/27/19 Deena Lyn, ISABEL [address] [place] [address] [place] [address] Referring Family Medicine 04/03/24 Nurses Director Relationship Specialty Start Date End Date Giovani Hagen MD [address] [place] [address] [place] [address] PCP - Medical [employer] 10/22/18 04/23/99 Giovani Hagen MD [address] [place] [address] [place] [address] PCP - General Family Medicine 08/30/22 Nurses Director Relationship Specialty Start Date End Date Giovani Hagen MD [address] [place] [address] [place] [address] PCP - Medical [employer] 10/22/18 04/23/99 Giovani Hagen MD [address] [place] [address] [place] [address] PCP - General Family Medicine 08/30/22 Nurses Director Relationship Specialty Start Date End Date Giovani Hagen MD [address] [place] [address] [place] [address] PCP - General Family Medicine 03/27/19 Deena Lyn, ISABEL [address] [place] [address] [place] [address] Referring Family Medicine 04/03/24 Nurses Director Relationship Specialty Start Date End Date Giovani Hagen MD [address] [place] [address] [place] [address] PCP - General Family Medicine 03/27/19 Deena Lyn, ISABEL [address] [address] [place] [address] Referring Family Medicine 04/03/24 Nurses Director Relationship Specialty Start Date End Date Giovani Hagen MD [address] [place] [address] PCP - Medical [employer] 10/22/18 04/23/99 Giovani Hagen MD [address] [place] [address] PCP - General Family Medicine 08/30/22 Nurses Director Relationship Specialty Start Date End Date Giovani Hagen MD [address] [place] [address] PCP - Medical [employer] 10/22/18 04/23/99 Giovani Hagen MD [address] [place] [address] PCP - General Family Medicine 08/30/22 Nurses Director Relationship Specialty Start Date End Date Giovani Hagen MD [address] [place] [address] PCP - General Family Medicine 03/27/19 Deena Lyn CNP [address] [place] [address] Referring Family Medicine 04/03/24 Nurses Director Relationship Specialty Start Date End Date Giovani Hagen MD [address] [place] [address] PCP - Medical [employer] 10/22/18 04/23/99 Giovani Hagen MD [address] [place] [address] PCP - General Family Medicine 08/30/22 Nurses Director Relationship Specialty Start Date End Date Giovani Hagen MD [address] [place] [address] PCP - Medical [employer] 10/22/18 04/23/99 Giovani Hagen MD [address] [place] [address] PCP - General Family Medicine 08/30/22 Nurses Director Relationship Specialty Start Date End Date Giovani Hagen MD [address] [place] [address] PCP - General Family Medicine 03/27/19 Deena Lyn CNP [address] [place] [address] Referring Family Medicine 04/03/24 Nurses Director Relationship Specialty Start Date End Date Giovani Hagen MD [address] [place] [address] PCP - General Family Medicine 03/27/19 Deena Lyn [employer] [address] [place] [address] Referring Family Medicine 04/03/24 Nurses Director Relationship Specialty Start Date End Date Giovani aHgen MD [address] [place] [address] PCP - Medical [employer] 10/22/18 04/23/99 Giovani Hagen MD [address] [place] [address] PCP - General Family Medicine 08/30/22 Nurses Director Relationship Specialty Start Date End Date Giovani Hagen MD [address] [place] [address] PCP - Medical [employer] 10/22/18 04/23/99 Giovani Hagen MD [address] [place] [address] PCP - General Family Medicine 08/30/22 Nurses Director Relationship Specialty Start Date End Date Giovani Hagen MD [address] [place] [address] PCP - Medical [employer] 10/22/18 04/23/99 Giovani Hagen MD [address] [place] [address] PCP - General Family Medicine 08/30/22 Nurses Director Relationship Specialty Start Date End Date Giovani Hagen MD [address] [place] [address] PCP - Medical [employer] 10/22/18 04/23/99 Giovani Hagen MD [address] [place] [address] PCP - General [facility] Medicine 08/30/22 Nurses Director Relationship Specialty Start Date End Date Giovani Hagen MD [address] [place] [address] PCP - Medical [employer] 10/22/18 04/23/99 Giovani Hagen MD [address] [place] [address] PCP - General Family Medicine 08/30/22 Nurses Director Relationship Specialty Start Date End Date Giovani Hagen MD [address] [place] [address] PCP - Medical [employer] 10/22/18 04/23/99 Giovani Hagen MD [address] [place] [address] PCP - General Family Medicine 08/30/22 Nurses Director Relationship Specialty Start Date End Date Giovani Hagen MD [address] [place] [address] PCP - Medical [employer] 10/22/18 04/23/99 Giovani Hagen MD [address] [place] [address] PCP - General Family Medicine 08/30/22 Nurses Director Relationship Specialty Start Date End Date Giovani Hagen MD [address] [facility] [address] [place] [address] PCP - Medical [facility] [employer] 10/22/18 04/23/99 Giovani Hagen MD [address] [facility] [address] [place] [address] PCP - General Family Medicine 08/30/22 Nurses Director Relationship Specialty Start Date End Date Giovani Hagen MD [address] [facility] [address] [place] [address] PCP - General Family Medicine 03/27/19 Deena Lyn, [employer] [address] [place] [address] Referring Family Medicine 04/03/24 Darwin Starr DO [address] [place] [address] [place] [address] Referring Arch Cushion Skiving [employer] 07/02/24 Nurses Director Relationship Specialty Start Date End Date Giovani Hagen MD [address] [place] [address] PCP - General Family Medicine 03/27/19 Deena Lyn CNP [address] [place] [address] Referring Family Medicine 04/03/24 Darwin Starr DO [address] [place] [address] [place] [address] Referring Arch Cushion Skiving [employer] Operator 07/02/24 Nurses Director Relationship Specialty Start Date End Date Giovani Hagen MD [address] [place] [address] PCP - Medical [employer] 10/22/18 04/23/99 Giovani Hagen MD [address] [place] [address] PCP - General Family Medicine 08/30/22 Nurses Director Relationship Specialty Start Date End Date Giovani Hagen MD [address] [place] [address] PCP - Medical [employer] 10/22/18 04/23/99 Giovani Hagen MD [address] [place] [address] PCP - General Family Medicine 08/30/22 Nurses Director Relationship Specialty Start Date End Date Giovani Hagen MD [address] [place] [address] PCP - Medical [employer] 10/22/18 04/23/99 Giovani Hagen MD [address] [place] [address] PCP - General Family Medicine 08/30/22 Nurses Director Relationship Specialty Start Date End Date Giovani Hagen MD [address] [place] [address] PCP - Medical [facility] [employer] 10/22/18 04/23/99 Giovani Hagen MD [address] [place] [address] PCP - General Family Medicine 08/30/22 Nurses Director Relationship Specialty Start Date End Date Giovani Hagen MD [address] [facility] [address] [place] [address] PCP - Medical [employer] 10/22/18 04/23/99 Giovani Hagen MD [address] [facility] [address] [place] [address] PCP - General Family Medicine 08/30/22 Team Status: Inactive Member Role Status Dates Giovani Hagen MD Primary Care Provider Active S tart: August 16, 2024 End: August 19, 2024 Dank Green MD Admit Provide r, Attending Provider Active Start: August 16, 2024 End: August 19, 2024 Team Status: Active Member Role Status Dates Giovani Hagen MD Primary Care Provider Active S tart: August 17, 2024 Dank Green MD Admit Provide r, Attending Provider, Other Provider Active Start: August 17, 2024 Nurses Director Relationship Specialty Start Date End Date Giovani Hagen MD [address] [facility] [address] [place] [address] PCP - Medical [employer] 10/22/18 04/23/99 Giovani Hagen MD [address] [place] [address] PCP - General Family Medicine 08/30/22 Nurses Director Relationship Specialty Start Date End Date Giovani Hagen MD [address] [place] [address] PCP - Medical [employer] 10/22/18 04/23/99 Giovani Hagen MD [address] [place] [address] PCP - General Family Medicine 08/30/22 Nurses Director Relationship Specialty Start Date End Date Giovani Hagen MD [address] [place] [address] PCP - General Family Medicine 03/27/19 Deena Lyn, ISABEL [address] [place] [address] Referring Family Medicine 04/03/24 Darwin Starr DO [address] [place] [address] Dr Carlyle Mancuso, [place] [id number] Referring Arch Cushion Skiving Machine Operator 07/02/24 Nurses Director Relationship Specialty Start Date End Date Giovani Hagen MD [address] [place] [address] PCP - Medical [employer] 10/22/18 04/23/99 Giovani Hagen MD [address] [place] [address] PCP - General Family Medicine 08/30/22 Nurses Director Relationship Specialty Start Date End Date Giovani Hagen MD [address] [place] [address] PCP - Medical [employer] 10/22/18 04/23/99 Giovani Hagen MD [address] [place] [address] PCP - General Family Medicine 08/30/22 Nurses Director Relationship Specialty Start Date End Date Giovani Hagen MD [address] [place] [address] PCP - Medical [employer] 10/22/18 04/23/99 Giovani Hagen MD [address] [facility] [address] [place] [address] PCP - General Family Medicine 08/30/22 Nurses Director Relationship Specialty Start Date End Date Giovani Hagen MD [address] [facility] [address] [place] [address] PCP - Medical [employer] 10/22/18 04/23/99 Giovani Hagen MD [address] [facility] [address] [place] [address] PCP - General Family Medicine 08/30/22 Nurses Director Relationship Specialty Start Date End Date Giovani Hagen MD [address] [place] [address] PCP - General Family Medicine 03/27/19 Deena Lyn, ISABEL [address] [place] [address] Referring Family Medicine 04/03/24 Darwin Starr DO [address] [place] [address] [place] [address] Referring Arch Cushion Skiving Machine Operator 07/02/24 Source Comments (unrecognize d section and content) In the event this informatio n is protected by the Federal Confidentiality of Alcohol and Drug Abuse Patient Records regulations: The Federal rules restrict any use of the information to criminally investigate or prosecute any alcohol or drug abuse patient.[facility] the event this information is protected by the Federal Confidentiality of Alcohol and Drug Abuse Patient Records regulations: The Federal rules restrict any use of the information to criminally investigate or prosecute any alcohol or drug abuse patient.[facility] HospitalIn the event this information is protected by the Federal Confidentiality of Alcohol and Drug Abuse Patient Records regulations: The Federal rules restrict any use of the information to criminally investigate or prosecute any alcohol or drug abuse patient.[facility] HospitalIn the event this information is protected by the Federal Confidentiality of Alcohol and Drug Abuse Patient Records regulations: The Federal rules restrict any use of the information to criminally investigate or prosecute any alcohol or drug abuse patient.[facility] HospitalIn the event this information is protected by the Federal Confidentiality of Alcohol and Drug Abuse Patient Records regulations: The Federal rules restrict any use of the information to criminally investigate or prosecute any alcohol or drug abuse patient.[facility] HospitalIn the event this information is protected by the Federal Confidentiality of Alcohol and Drug Abuse Patient Records regulations: The Federal rules restrict any use of the information to criminally investigate or prosecute any alcohol or drug abuse patient.[facility] HospitalIn the event this information is protected by the Federal Confidentiality of Alcohol and Drug Abuse Patient Records regulations: The Federal rules restrict any use of the information to criminally investigate or prosecute any alcohol or drug abuse patient.[facility] HospitalIn the event this information is protected by the Federal Confidentiality of Alcohol and Drug Abuse Patient Records regulations: The Federal rules restrict any use of the information to criminally investigate or prosecute any alcohol or drug abuse patient.[facility] HospitalIn the event this information is protected by the Federal Confidentiality of Alcohol and Drug Abuse Patient Records regulations: The Federal rules restrict any use of the information to criminally investigate or prosecute any alcohol or drug abuse patient.[facility] HospitalIn the event this information is protected by the Federal Confidentiality of Alcohol and Drug Abuse Patient Records regulations: The Federal rules restrict any use of the information to criminally investigate or prosecute any alcohol or drug abuse patient.[facility] HospitalIn the event this information is protected by the Federal Confidentiality of Alcohol and Drug Abuse Patient Records regulations: The Federal rules restrict any use of the information to criminally investigate or prosecute any alcohol or drug abuse patient.[facility] HospitalIn the event this information is protected by the Federal Confidentiality of Alcohol and Drug Abuse Patient Records regulations: The Federal rules restrict any use of the information to criminally investigate or prosecute any alcohol or drug abuse patient.[facility] HospitalIn the event this information is protected by the Federal Confidentiality of Alcohol and Drug Abuse Patient Records regulations: The Federal rules restrict any use of the information to criminally investigate or prosecute any alcohol or drug abuse patient.[facility] HospitalIn the event this information is protected by the Federal Confidentiality of Alcohol and Drug Abuse Patient Records regulations: The Federal rules restrict any use of the information to criminally investigate or prosecute any alcohol or drug abuse patient.[facility] HospitalIn the event this information is protected by the Federal Confidentiality of Alcohol and Drug Abuse Patient Records regulations: The Federal rules restrict any use of the information to criminally investigate or prosecute any alcohol or drug abuse patient.[facility] HospitalIn the event this information is protected by the Federal Confidentiality of Alcohol and Drug Abuse Patient Records regulations: The Federal rules restrict any use of the information to criminally investigate or prosecute any alcohol or drug abuse patient.[facility] HospitalIn the event this information is protected by the Federal Confidentiality of Alcohol and Drug Abuse Patient Records regulations: The Federal rules restrict any use of the information to criminally investigate or prosecute any alcohol or drug abuse patient.[facility] HospitalIn the event this information is protected by the Federal Confidentiality of Alcohol and Drug Abuse Patient Records regulations: The Federal rules restrict any use of the information to criminally investigate or prosecute any alcohol or drug abuse patient.[facility] HospitalIn the event this information is protected by the Federal Confidentiality of Alcohol and Drug Abuse Patient Records regulations: The Federal rules restrict any use of the information to criminally investigate or prosecute any alcohol or drug abuse patient.[facility] HospitalIn the event this information is protected by the Federal Confidentiality of Alcohol and Drug Abuse Patient Records regulations: The Federal rules restrict any use of the information to criminally investigate or prosecute any alcohol or drug abuse patient.[facility] HospitalIn the event this information is protected by the Federal Confidentiality of Alcohol and Drug Abuse Patient Records regulations: The Federal rules restrict any use of the information to criminally investigate or prosecute any alcohol or drug abuse patient.[facility] HospitalIn the event this information is protected by the Federal Confidentiality of Alcohol and Drug Abuse Patient Records regulations: The Federal rules restrict any use of the information to criminally investigate or prosecute any alcohol or drug abuse patient.[facility] HospitalIn the event this information is protected by the Federal Confidentiality of Alcohol and Drug Abuse Patient Records regulations: The Federal rules restrict any use of the information to criminally investigate or prosecute any alcohol or drug abuse patient.[facility] HospitalIn the event this information is protected by the Federal Confidentiality of Alcohol and Drug Abuse Patient Records regulations: The Federal rules restrict any use of the information to criminally investigate or prosecute any alcohol or drug abuse patient.[facility] HospitalIn the event this information is protected by the Federal Confidentiality of Alcohol and Drug Abuse Patient Records regulations: The Federal rules restrict any use of the information to criminally investigate or prosecute any alcohol or drug abuse patient.[facility] HospitalIn the event this information is protected by the Federal Confidentiality of Alcohol and Drug Abuse Patient Records regulations: The Federal rules restrict any use of the information to criminally investigate or prosecute any alcohol or drug abuse patient.[facility] HospitalIn the event this information is protected by the Federal Confidentiality of Alcohol and Drug Abuse Patient Records regulations: The Federal rules restrict any use of the information to criminally investigate or prosecute any alcohol or drug abuse patient.[facility] HospitalIn the event this information is protected by the Federal Confidentiality of Alcohol and Drug Abuse Patient Records regulations: The Federal rules restrict any use of the information to criminally investigate or prosecute any alcohol or drug abuse patient.[facility] HospitalIn the event this information is protected by the Federal Confidentiality of Alcohol and Drug Abuse Patient Records regulations: The Federal rules restrict any use of the information to criminally investigate or prosecute any alcohol or drug abuse patient.[facility] HospitalIn the event this information is protected by the Federal Confidentiality of Alcohol and Drug Abuse Patient Records regulations: The Federal rules restrict any use of the information to criminally investigate or prosecute any alcohol or drug abuse patient.[facility] HospitalIn the event this information is protected by the Federal Confidentiality of Alcohol and Drug Abuse Patient Records regulations: The Federal rules restrict any use of the information to criminally investigate or prosecute any alcohol or drug abuse patient.[facility] HospitalIn the event this information is protected by the Federal Confidentiality of Alcohol and Drug Abuse Patient Records regulations: The Federal rules restrict any use of the information to criminally investigate or prosecute any alcohol or drug abuse patient.[facility] HospitalIn the event this information is protected by the Federal Confidentiality of Alcohol and Drug Abuse Patient Records regulations: The Federal rules restrict any use of the information to criminally investigate or prosecute any alcohol or drug abuse patient.[facility] HospitalIn the event this information is protected by the Federal Confidentiality of Alcohol and Drug Abuse Patient Records regulations: The Federal rules restrict any use of the information to criminally investigate or prosecute any alcohol or drug abuse patient.[facility] HospitalIn the event this information is protected by the Federal Confidentiality of Alcohol and Drug Abuse Patient Records regulations: The Federal rules restrict any use of the information to criminally investigate or prosecute any alcohol or drug abuse patient.[facility] the event this information is protected by the Federal Confidentiality of Alcohol and Drug Abuse Patient Records regulations: The Federal rules restrict any use of the information to criminally investigate or prosecute any alcohol or drug abuse patient.[facility] HospitalIn the event this information is protected by the Federal Confidentiality of Alcohol and Drug Abuse Patient Records regulations: The Federal rules restrict any use of the information to criminally investigate or prosecute any alcohol or drug abuse patient.[facility] HospitalIn the event this information is protected by the Federal Confidentiality of Alcohol and Drug Abuse Patient Records regulations: The Federal rules restrict any use of the information to criminally investigate or prosecute any alcohol or drug abuse patient.[facility] HospitalIn the event this information is protected by the Federal Confidentiality of Alcohol and Drug Abuse Patient Records regulations: The Federal rules restrict any use of the information to criminally investigate or prosecute any alcohol or drug abuse patient.[facility] HospitalIn the event this information is protected by the Federal Confidentiality of Alcohol and Drug Abuse Patient Records regulations: The Federal rules restrict any use of the information to criminally investigate or prosecute any alcohol or drug abuse patient.[facility] HospitalIn the event this information is protected by the Federal Confidentiality of Alcohol and Drug Abuse Patient Records regulations: The Federal rules restrict any use of the information to criminally investigate or prosecute any alcohol or drug abuse patient.[facility] HospitalIn the event this information is protected by the Federal Confidentiality of Alcohol and Drug Abuse Patient Records regulations: The Federal rules restrict any use of the information to criminally investigate or prosecute any alcohol or drug abuse patient.[facility] HospitalIn the event this information is protected by the Federal Confidentiality of Alcohol and Drug Abuse Patient Records regulations: The Federal rules restrict any use of the information to criminally investigate or prosecute any alcohol or drug abuse patient.[facility] HospitalIn the event this information is protected by the Federal Confidentiality of Alcohol and Drug Abuse Patient Records regulations: The Federal rules restrict any use of the information to criminally investigate or prosecute any alcohol or drug abuse patient.[facility] HospitalIn the event this information is protected by the Federal Confidentiality of Alcohol and Drug Abuse Patient Records regulations: The Federal rules restrict any use of the information to criminally investigate or prosecute any alcohol or drug abuse patient.[facility] HospitalIn the event this information is protected by the Federal Confidentiality of Alcohol and Drug Abuse Patient Records regulations: The Federal rules restrict any use of the information to criminally investigate or prosecute any alcohol or drug abuse patient.[facility] HospitalIn the event this information is protected by the Federal Confidentiality of Alcohol and Drug Abuse Patient Records regulations: The Federal rules restrict any use of the information to criminally investigate or prosecute any alcohol or drug abuse patient.[facility] HospitalIn the event this information is protected by the Federal Confidentiality of Alcohol and Drug Abuse Patient Records regulations: The Federal rules restrict any use of the information to criminally investigate or prosecute any alcohol or drug abuse patient.[facility] HospitalIn the event this information is protected by the Federal Confidentiality of Alcohol and Drug Abuse Patient Records regulations: The Federal rules restrict any use of the information to criminally investigate or prosecute any alcohol or drug abuse patient.[facility] HospitalIn the event this information is protected by the Federal Confidentiality of Alcohol and Drug Abuse Patient Records regulations: The Federal rules restrict any use of the information to criminally investigate or prosecute any alcohol or drug abuse patient.[facility] HospitalIn the event this information is protected by the Federal Confidentiality of Alcohol and Drug Abuse Patient Records regulations: The Federal rules restrict any use of the information to criminally investigate or prosecute any alcohol or drug abuse patient.[facility] HospitalIn the event this information is protected by the Federal Confidentiality of Alcohol and Drug Abuse Patient Records regulations: The Federal rules restrict any use of the information to criminally investigate or prosecute any alcohol or drug abuse patient.[facility] Reason for Visit (unrecogniz ed section [...] & PELVIS W/O [place] [address] [place] [address] [place] [address] Referral ID Status Reason Start Date Expiration Date V isits Requested Visits Authorized [id number] Closed Auto-Generate d Referral 05/27/2022 06/26/2023 1 [...] Received Outside Medical Records [facility] [place] Reason Comments Received Outside Medical Records Cardio Clearance [facility] [place] Reason Comments Back Pain Reason Comments Dyspareunia [...] NEW HIGH MDM Giovani Hagen MD [address] [place] [address] Phone: tel: fax: Prateek Pedraza DPM [address] [place] [address] Phone: tel: fax: Referral ID Status Reason Start Date Expiration Date V isits Requested Visits Authorized [id number] Closed Specialty Services Required 04/22/2024 10/19/2024 1 [...] WK 2 post op Reason Comments Painful [place] bleeding with intercourse Reason Comments Post-op 3 week post op Reason Comments Anxiety Reason Comments Vaginal Problem Pt presents today fo r consult - painful intercourse Reason Comments Foot/ankle Post-op WEEK 6 POST OP Reason Onset Date Comments Med Refill 07/31/2024 Reason Comments Foot/ankle Post-op WK 9 post op Reason Comments Foot/ankle Post-op Wk 10 post op Reason Onset Date Comments Palpitations 08/26/2024 Reason Onset Date Comments Med Refill 08/28/2024 Reason Comments Med Refill Reason Comments Foot/ankle Post-op WK 12 post op Goals (unrecognized section and content) Goals may [...] BE BASED ON THE PRIMARY CLINICAL RECORDS. [email or web address] provides no warranty or guarantee of the accuracy or completeness of information in this document.
--- NOTE | 2024-09-06 09:07 | ED.GENADUL1 ---
HPI HPI - General Adult General Chief complaint: Wound/Laceration Stated complaint: LOWER EXTREMITY LACERATION Time Seen by Provider: 09/06/24 08:19 Mode of arrival: Wheelchair History of Present Illness HPI narrative: Patient is a 33-year-old female who is presenting to the ER today who is presenting to the ER with chief complaint of right knee pain/contusion/laceration 9cm. Patient is at bedside. Patient is very histrionic, pain out of proportion, yelling loud and moaning loudly just barely touching the wound in the area. Patient has just recently had right foot and ankle surgery by Dr. Duvall in [place]. Patient just had her splint removed to the right foot and ankle. Patient had a mechanical fall tripping in the house, landing her right knee against the partition between the wood floor and carpet in the house. Patient has a 9 cm complex laceration that is down Through the subcuticular and adipose tissue, not invading the joint capsule. Patient stated that she hit the left frontal aspect of her forehead, no hematoma bruising laceration, no pain to the left forehead. She has no other acute injury. All systems are negative except as noted/marked. All systems reviewed and otherwise negative. Nurses note and vital signs reviewed and patient is not hypoxic. General: The patient appears moderate distress secondary to pain, discomfort, pain out of proportion of right knee, very histrionic. Patient is resting uncomfortably on cart. Patient is not toxic, lethargic, or listless. slightly hyperventilating.. Skin: Warm, dry, no pallor noted. There is no rash noted. No petechiae, purpura. Head: Normocephalic, atraumatic; patient has no midline or paracervical tenderness to palpation. Full range of motion of cervical spine no difficulty. Patient has no scalp hematoma. No tenderness palpation to the left forehead, no facial or forehead hematoma. Eye: Normal conjunctiva, no drainage, EOMI. PERRL Ears, Nose, Mouth, and Throat: oral mucosa is moist. Nares patent. Mouth without vesicles. Cardiovascular: Regular Rate and Rhythm, no murmur, gallop, rub Respiratory: Patient is in no distress, no accessory muscle use, lungs are clear to auscultation, no wheezing, rales or rhonchi Back: non-tender, no CVA tenderness bilaterally to percussion. No CT LS midline pain GI: no tenderness to palpation, no masses appreciated. No rebound, guarding, or rigidity noted. No distention Musculoskeletal: Patient has full range of motion of all of the extremities except to the right knee. Patient has a somewhat stellate horizontal laceration 9 cm over the right knee, just distal to the right patella. It does not appear that any type of joint capsule, bone is involved. The fascia has not been invaded. Patient's laceration has gone through the subcuticular and adipose tissue. There is a small if the in the middle of the laceration, this appears to be an oblique laceration, skin flap. Patient will not allow for good range of motion secondary to screaming, moaning, and pain initially. No obvious deformity. Questionable open fracture initially., no other motor, sensory, or focal neurological deficits Neurological: A&O x4, normal speech Psychiatric: Cooperative Related Data Home Medications ?Medication ?Instructions ?Recorded ?Confirmed albuterol sulfate 90 mcg/actuation 2 inh inhalation Q4H PRN shortness 02/06/23 09/06/24 aerosol inhaler of breath or wheezing cariprazine 4.5 mg capsule 4.5 mg PO QPM 02/06/23 09/06/24 (Vraylar) epinephrine 0.3 mg/0.3 mL 0.3 ml subcut Q4H PRN anaphylaxis 02/06/23 09/06/24 injection, auto-injector dextroamphetamine-amphetamine ER 30 mg PO QDAY 03/17/24 05/23/24 30 mg 24hr capsule,extend release escitalopram oxalate 20 mg tablet 20 mg PO QDAY 03/17/24 09/06/24 phentermine 37.5 mg tablet 37.5 mg PO QDAY 03/17/24 09/06/24 cephalexin 250 mg capsule 250 mg PO DAILY PRN UTI PREVENTION 08/14/24 09/06/24 clomipramine 25 mg capsule 25 mg PO .QHS 08/14/24 09/06/24 dextroamphetamine-amphetamine ER 10 mg PO DAILY 08/14/24 09/06/24 10 mg 24hr capsule,extend release dextroamphetamine-amphetamine ER 30 mg PO DAILY 08/14/24 08/15/24 30 mg 24hr capsule,extend release fluticasone fur. 100 mcg-umeclid 1 inh inhalation DAILY 08/14/24 09/06/24 62.5 mcg-vilant 25 mcg inhalat.powder (Trelegy Ellipta) metoprolol succinate 25 mg 25 mg PO DAILY 08/14/24 09/06/24 tablet,extended release 24 hr montelukast 10 mg tablet 10 mg PO .QHS 08/14/24 09/06/24 albuterol sulfate 90 mcg/actuation 2 puff inhalation Q6H PRN 08/15/24 08/15/24 aerosol inhaler shortness of breath or wheezing clomipramine 50 mg capsule 50 mg PO .QHS 08/15/24 09/06/24 Previous Rx's ?Medication ?Instructions ?Recorded hydrocortisone acetate 25 mg 25 mg [place] Q12H PRN hemorrhoids #12 07/07/24 rectal suppository (Anusol-HC) ea cephalexin 500 mg capsule 500 mg PO Q12H 10 days #20 caps 09/06/24 hydrocodone 5 mg-acetaminophen 325 1 tab PO Q4H PRN pain #10 tabs 09/06/24 mg tablet Allergies Allergy/AdvReac Type Severity Reaction Status Date / Time cat dander Allergy Anaphylaxis Verified 09/06/24 08:19 Iodinated Contrast Media Allergy Hives Verified 09/06/24 08:19 Opioid HPI Opioid Management Most Recent Opioid Data: Last Pain Scale 9 Today, 09:40 Last MAR Pain Assessment Today, 09:23 Last ORT Total Score 9 08/15/24, 07:32 Last ORT Risk Category High Risk 08/15/24, 07:32 Ur Phencyclidine Scrn, (NEGATIVE) Negative 08/14/24, 22:30 [facility] Medical History (Updated 09/06/24 @ 10:55 by Homero Montoya MD) Hypoxia ?R09.02 - Hypoxemia (ICD-10) Metabolic acidosis ?E87.20 - Acidosis, unspecified (ICD-10) Elevated liver function tests ?R79.89 - Other specified abnormal findings of blood chemistry (ICD-10) Altered mental status ?R41.82 - Altered mental status, unspecified (ICD-10) Laceration of left wrist ?S61.512A - Laceration without foreign body of left wrist, initial encounter (ICD-10) Benzodiazepine overdose ?T42.4X1A - Poisoning by benzodiazepines, accidental (unintentional), initial encounter (ICD-10) Suicide attempt ?T14.91XA - Suicide attempt, initial encounter (ICD-10) Alcoholic intoxication ?F10.929 - Alcohol use, unspecified with intoxication, unspecified (ICD-10) Bronchitis (04/07/24) ?J40 - Bronchitis, not specified as acute or chronic (ICD-10) HTN (hypertension) ?I10 - Essential (primary) hypertension (ICD-10) Prediabetes ?R73.03 - Prediabetes (ICD-10) Suicidal ideation ?R45.851 - Suicidal ideations (ICD-10) Depression ?F32.A - Depression, unspecified (ICD-10) Anxiety ?F41.9 - Anxiety disorder, unspecified (ICD-10) 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) ?R76.11 - Nonspecific reaction to tuberculin skin test without active tuberculosis (ICD-10) Postoperative nausea and vomiting ?R11.2 - Nausea with vomiting, unspecified (ICD-10) ?Z98.890 - Other specified postprocedural states (ICD-10) 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 - depression (ICD-10) Ovarian cyst ?N83.209 - Unspecified ovarian cyst, unspecified side (ICD-10) HELLP (hemolytic anemia/elev liver enzymes/low platelets in ) ?O14.20 - HELLP syndrome (HELLP), unspecified trimester (ICD-10) Gestational hypertension ?O13.9 - Gestational [-induced] hypertension without significant proteinuria, unspecified trimester (ICD-10) Dizziness ?R42 - Dizziness and giddiness (ICD-10) Vitamin D deficiency ?E55.9 - Vitamin D deficiency, unspecified (ICD-10) Urinary tract infection ?N39.0 - Urinary tract infection, site not specified (ICD-10) Urinary frequency ?R35.0 - Frequency of micturition (ICD-10) Hypercholesterolemia ?E78.00 - Pure hypercholesterolemia, unspecified (ICD-10) Osteoarthritis, knee ?M17.9 - Osteoarthritis of knee, unspecified (ICD-10) Gastroparesis ?K31.84 - Gastroparesis (ICD-10) GERD (gastroesophageal reflux disease) ?K21.9 - Gastro-esophageal reflux disease without esophagitis (ICD-10) Dysuria ?R30.0 - Dysuria (ICD-10) Enlarged thyroid ?E04.9 - Nontoxic goiter, unspecified (ICD-10) Headache ?R51.9 - Headache, unspecified (ICD-10) Skin pain ?R20.8 - Other disturbances of skin sensation (ICD-10) Sciatica ?M54.30 - Sciatica, unspecified side (ICD-10) Poor concentration ?R41.840 - Attention and concentration deficit (ICD-10) ENGLISH (nonalcoholic steatohepatitis) ?K75.81 - Nonalcoholic steatohepatitis (ENGLISH) (ICD-10) Kidney stones ?N20.0 - Calculus of kidney (ICD-10) Mood swings ?R45.86 - Emotional lability (ICD-10) Sinusitis ?J32.9 - Chronic sinusitis, unspecified (ICD-10) Insomnia ?G47.00 - Insomnia, unspecified (ICD-10) Hypersexuality ?F52.8 - Other sexual dysfunction not due to a substance or known physiological condition (ICD-10) Hyperglycemia ?R73.9 - Hyperglycemia, unspecified (ICD-10) Elevated liver enzymes ?R74.8 - Abnormal levels of other serum enzymes (ICD-10) Dysphagia ?R13.10 - Dysphagia, unspecified (ICD-10) Diverticulitis ?K57.92 - Diverticulitis of intestine, part unspecified, without perforation or abscess without bleeding (ICD-10) Bipolar 1 disorder ?F31.9 - Bipolar disorder, unspecified (ICD-10) Attention deficit hyperactivity disorder ?F90.9 - Attention-deficit hyperactivity disorder, unspecified type (ICD-10) Abnormal involuntary movement ?R25.9 - Unspecified abnormal involuntary movements (ICD-10) Endometriosis ?N80.9 - Endometriosis, unspecified (ICD-10) Dyspareunia Pelvic pain ?R10.2 - Pelvic and perineal pain (ICD-10) History of blood transfusion ?Z92.89 - Personal history of other medical treatment (ICD-10) Anemia ?D64.9 - Anemia, unspecified (ICD-10) PTSD (post-traumatic stress disorder) ?F43.10 - Post-traumatic stress disorder, unspecified (ICD-10) Depression ?F32.A - Depression, unspecified (ICD-10) Anxiety ?F41.9 - Anxiety disorder, unspecified (ICD-10) COVID-19 ?U07.1 - COVID-19 (ICD-10) Asthma ?J45.909 - Unspecified asthma, uncomplicated (ICD-10) Migraine ?G43.909 - Migraine, unspecified, not intractable, without status migrainosus (ICD-10) Heartburn ?R12 - Heartburn (ICD-10) Constipation ?K59.00 - Constipation, unspecified (ICD-10) IBS (irritable bowel syndrome) ?K58.9 - Irritable bowel syndrome without diarrhea (ICD-10) Tachycardia ?R00.0 - Tachycardia, unspecified (ICD-10) Syncope ?R55 - Syncope and collapse (ICD-10) Surgical History (Updated 08/15/24 @ 14:49 by Lauren Denny) History of ankle surgery ?Z98.890 - Other specified postprocedural states (ICD-10) Hx of cholecystectomy ?Z90.49 - Acquired absence of other specified parts of digestive tract (ICD-10) History of cholecystectomy (03/21/23) ?Z90.49 - Acquired absence of other specified parts of digestive tract (ICD-10) History of esophagogastroduodenoscopy (EGD) ?Z98.890 - Other specified postprocedural states (ICD-10) History of colonoscopy ?Z98.890 - Other specified postprocedural states (ICD-10) History of hysterectomy ?Z90.710 - Acquired absence of both cervix and uterus (ICD-10) History of section ?Z98.891 - History of uterine scar from previous surgery (ICD-10) Family History (System 08/15/24 @ 14:49 by Lauren Denny) Other Family history of diabetes mellitus Family history of hypertension Family history of ovarian cancer PONV (postoperative nausea and vomiting) Social History (System 08/15/24 @ 14:49 by Lauren Denny) Within the past year, how often did you have a drink containing alcohol: 2-4 times a month Smoking status: Former smoker Non-prescribed substance use: cannabis (any form) 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 Highest level of school completed/degree received: high school graduate Little interest or pleasure in doing things: nearly every day Feeling down, depressed, or hopeless: several days Exam Constitutional Vital Signs, click to edit/add: Last Vital Signs Temp 98.3 F 09/06/24 08:23 Pulse 88 09/06/24 08:23 Resp 18 09/06/24 08:23 BP 112/88 09/06/24 08:23 Pulse Ox 99 09/06/24 08:23 O2 Del Method Room Air 09/06/24 08:23 Course Vital Signs Vital signs: Vital Signs Temperature 98.3 F 09/06/24 08:23 Pulse Rate 88 09/06/24 08:23 Respiratory Rate 18 09/06/24 08:23 Blood Pressure 112/88 09/06/24 08:23 Pulse Oximetry 99 09/06/24 08:23 Oxygen Delivery Method Room Air 09/06/24 08:23 Temperature 98.3 F 09/06/24 08:23 Pulse Rate 88 09/06/24 08:23 Respiratory Rate 18 09/06/24 08:23 Blood Pressure 112/88 09/06/24 08:23 Pulse Oximetry 99 09/06/24 08:23 Oxygen Delivery Method Room Air 09/06/24 08:23 Medical Decision Making MDM Narrative Medical decision making narrative: Patient seen and examined: Patient is very histrionic, pain out of proportion, with any type of range of motion or light palpation around the knee. Tenderness, initial [place] was given be given but then we switched to IM morphine secondary to her pain and fear of open fracture, labs, tetanus, x-rays. Differential diagnosis includes but is not limited to: Open tibial plateau fracture, right patella fracture, knee sprain, knee contusion, complex laceration of right knee Radiological studies: Please see the formal radiological report. Patient has no acute signs of fracture, dislocation or acute abnormality seen on right knee and right tib-fib fracture. Patient has healing lower right tib-fib from previous surgery 6 weeks ago. Reevaluation: Patient's pain at the edge taken off with morphine. See procedure note. was at bedside throughout procedure. Shared decision making: I discussed with the patient the necessary laboratory findings and radiological findings. Social barriers to healthcare: There are no food insecurities, there is no issue with transportation, there are no insurance barriers. Disposition: I discussed with the patient discharge. Patient has very clear discharge striction's written. Patient was given Carmelo wrap and knee immobilizer. Patient given prescription for Keflex and [place]. Patient will follow-up with Dr. Hagen on Monday or Monday for wound recheck and have sutures removed in 10 to 12 days. Education on pain medication and using ice. Education and immobilization for the next 7 days was done as well. Procedure note: laceration repair done by Dr. Montoya. Patient was cleaned, prepped, draped in normal sterile fashion. The patient was anesthetized with [14cc of 1 percent lidocaine]. Patient had good anesthetic effect. Patient was cleaned with 100cc Betadine, patient was copiously irrigated with sterile water, approximately 1000 mL. Using 4-0 Vicryl, patient had a running subcuticular stitch of the laceration that approximated the laceration extremely well. There is no joint capsule, fascia, or muscle laceration noted. Patient then had a running baseball stitch placed with 2 locking sutures on each side of the middle of the laceration with a small V shaped was, 16's total sutures of a running baseball stitch were placed. Patient tolerated procedure well without difficulty. Patient was cleaned; bacitracin and dry dressing was placed. Procedure note: Patient was placed in Carmelo wrap and knee immobilizer to right knee after bacitracin, Telfa, dry dressing was placed. Splint was assisted with . the patient was neurovascularly intact before and after the splint was placed. the affected bones/injured area had proper alignment in a splint. Education on splint care at home was given at bedside. Patient and family have no questions at discharge. Discharge Plan Discharge Chief Complaint: Wound/Laceration Clinical Impression: Laceration of knee, right, complicated, Contusion of knee, right Patient Disposition: Home, Self-Care Time of Disposition Decision: 11:00 Condition: Fair Prescriptions / Home Meds: New hydrocodone-acetaminophen 5-325 mg tablet 1 tab PO Q4H PRN (Reason: pain) Qty: 10 0RF cephalexin 500 mg capsule 500 mg PO Q12H 10 Days Qty: 20 0RF No Action albuterol sulfate 90 mcg/actuation HFA aerosol inhaler 2 inh INHALATION Q4H PRN (Reason: shortness of breath or wheezing) Vraylar 4.5 mg capsule 4.5 mg PO QPM epinephrine 0.3 mg/0.3 mL auto-injector 0.3 ml subcut Q4H PRN (Reason: anaphylaxis) dextroamphetamine-amphetamine 30 mg capsule,extended release 24hr 30 mg PO QDAY escitalopram oxalate 20 mg tablet 20 mg PO QDAY phentermine 37.5 mg tablet 37.5 mg PO QDAY hydrocortisone acetate [Anusol-HC] 25 mg suppository 25 mg [place] Q12H PRN (Reason: hemorrhoids) Qty: 12 0RF cephalexin 250 mg capsule 250 mg PO DAILY PRN (Reason: UTI PREVENTION) Patient Comments: TAKE 1 CAPSULE BY MOUTH AFTER INTERCOURSE TO PREVENT UTI dextroamphetamine-amphetamine 10 mg capsule,extended release 24hr 10 mg PO DAILY montelukast 10 mg tablet 10 mg PO .QHS metoprolol succinate 25 mg tablet extended release 24 hr 25 mg PO DAILY dextroamphetamine-amphetamine 30 mg capsule,extended release 24hr 30 mg PO DAILY clomipramine 25 mg capsule 25 mg PO .QHS Trelegy Ellipta 100-62.5-25 mcg blister with device 1 inh INHALATION DAILY albuterol sulfate 90 mcg/actuation HFA aerosol inhaler 2 puff INHALATION Q6H PRN (Reason: shortness of breath or wheezing) clomipramine 50 mg capsule 50 mg PO .QHS Print Language: Italian Instructions: Care For Your Stitches (ED), Laceration (ED), Contusion in Adults (ED), Splint Care (ED), P.R.I.C.E. Treatment (ED), Care For Your Absorbable Stitches (ED) Additional Instructions: You have a running subcuticular suture underneath the skin of absorbable sutures. You have 16 superficial running baseball sutures that were placed. Sutures should be removed in 10 to 12 days. This may be done by your PCP. Follow-up with wound check with your PCP on Monday or Monday secondary to complexity of the laceration. Use ice 20 minutes on, 20 minutes off, do not use heat for the next 3 to 5 days. Wear your knee immobilizer and Carmelo wrap at all times besides ice and shower for the next 5 to 7 days. After 7 days start doing gentle right knee exercising and stretching to help with range of motion. Alternate Tylenol and either Motrin, Advil, or ibuprofen every 4 hours to help with pain. If you are having severe pain, substitute a [place] tablet instead of Tylenol. Do not take Tylenol and [place] at the same time, you may actually take too much Tylenol at 1 setting or in 1 day. Maximum Tylenol dose of Tylenol is 3000 mg a day. Maximum dose of either Motrin, Advil, or ibuprofen is 2400 mg a day. Finish your antibiotics Referrals: GIOVANI HAGEN [Primary Care Provider, Family Practice] - 1 week
[2024-09-06] MEDS: LIDOCAINE HCL 1% 100 MG/10 ML MDV 20 ML INJ (09:17)
[2024-09-06] MEDS: ADACEL DIPH,PERTUSS(ACELL),TET VAC/PF 0.5 ML ADULT SYRINGE IM (09:26)
[2024-09-06] MEDS: MORPHINE SULFATE 4 MG/ML VIAL 10 MG IM (09:40)
[2024-09-06] MEDS: BACITRACIN 0.9 GM PACKET 1 PACKET TOPICAL (11:00)
== END 2024-09-06 11:15 | disposition home or self-care (01) ==
PROVIDERS: Emergency Provider Emergency Medicine; PCP Family Medicine
DX: S81.011A Laceration without foreign body, right knee, initial encounter (principal); S80.01XA Contusion of right knee, initial encounter; W18.39XA Other fall on same level, initial encounter; Z98.890 Other specified postprocedural states; Z90.49 Acquired absence of other specified parts of digestive tract; Z90.710 Acquired absence of both cervix and uterus; Z87.891 Personal history of nicotine dependence; Z23 Encounter for immunization
CPT/HCPCS: 12004; 73562; 73590; 90471; 90715; 96372; 99284; J2270

== ENCOUNTER 2024-10-21 08:02 | Outpatient (OUT) | payer OTHER, SELFPAY ==
--- NOTE | 2024-10-21 08:07 | MR_ITS ---
The [address] [address] Patient Name: ORION HARPER MRN: [facility]:[id number] date: 1990 Sex: F Assigned Patient Location: MRI Current Patient Location: MRI Accession/Order Number: [id number] Exam Date: 10/21/2024 11:17 Report Date: 10/21/2024 11:39 At the request of: JONA DARDEN Procedure: MR head/brain wo/w con MRI BRAIN WITHOUT AND WITH INTRAVENOUS CONTRAST CLINICAL DATA: Atypical migraine headaches. Numbness and tingling at the hands and left face. COMPARISON: CT 08/14/2024 Multiecho, multiplanar imaging of the brain was performed before and after intravenous administration of 18 mL of Dotarem. The ventricles are normal in size and position. There is physiologic basal ganglia mineralization. There are no areas of abnormal signal intensity or enhancement within the supra or infratentorial brain. There is no restricted diffusion to suggest a recent ischemic event. No extra-axial collections or mass effect are seen. No midline abnormalities are noted. The imaged paranasal sinuses and mastoid air cells are clear. MR/MR head/brain wo/w con IMPRESSION: NO ACUTE INTRACRANIAL FINDINGS. Impression dictated by: Sandy Knight M.D. 10/21/2024 11:39 AM Dictation Location: [place] [address] Electronically authenticated by: [id number] Y Date: 10/21/2024 11:39
== END 2024-10-21 08:03 | disposition home or self-care (01) ==
LOC: MRI 08:02
PROVIDERS: PCP Family Medicine; Visit Provider Nurse Practitioner Gerontology
DX: R20.0 Anesthesia of skin (principal); G43.909 Migraine, unspecified, not intractable, without status migrainosus
CPT/HCPCS: 70553; A9575

== ENCOUNTER 2024-12-09 21:15 | Emergency (ER) | payer OTHER, SELFPAY ==
--- OUTSIDE RECORDS SUMMARY | 2024-03-25 07:20 | XMS_ITS ---
Author Organization [facility] Address [address] [place] [address] Care Team Providers Care Analysis Tester Name Role Phone Keegan Trujillo [facility] [phone] REASON FOR VISIT RIGHT ANKLE PAIN Encounters Encounter Location Date Provider Diagnosis [facility] [facility] [address] [facility] [place] [address] [place] [address] 03/25/2024 Keegan Trujillo Plan Of Treatment No Information Progress Notes * MEREDITH REJINOEDOB: 9 (34 yo F)Acc No.[id number]:03/25/2024 Patient: ORION SIMON Provider: Rodney Trujillo MD :1990 A ge:33 Y S ex:Female Date:03/25/2024 Address:[address] [place], [place] [id number] Subjective: * Chief Complaints: * 1 . RIGHT ANKLE PAIN. * Medical History: Objective: * Vitals: Assessment: Plan: * Treatment: Forms: * Images: * Electronic signature of Trino Trujillo MD on 12/09/2024 at 09:57 PM EDT Sign off status: Pending * Provider: Rodney Trujillo MD Date: 05/26/2023 Generated for Lino arias/Natalya/eTryitting on: 0 12/09/2024 09:57 PM EDT
--- OUTSIDE RECORDS SUMMARY | 2024-04-01 05:50 | XMS_ITS ---
Author Organization [facility] Address [address] [place] [address] Care Team Providers Care Enterprise Architect Name Role Phone Keegan Trujillo [facility] [phone] REASON FOR VISIT RIGHT ANKLE PAIN Encounters Encounter Location Date Provider Diagnosis [facility] [facility] [address] [facility] [place] [address] [place] [address] 04/01/2024 Keegan Trujillo Plan Of Treatment No Information Progress Notes * MEREDITH REJINOEDOB: 9 (34 yo F)Acc No.[id number]:04/01/2024 Patient: ORION SIMON Provider: Rodney Turjillo MD :1990 A ge:33 Y S ex:Female Date:04/01/2024 Address:[address] [place], [place] [id number] Subjective: * Chief Complaints: * 1 . RIGHT ANKLE PAIN. * Medical History: Objective: * Vitals: Assessment: Plan: * Treatment: Forms: * Images: * Electronic signature of Trino Trujillo MD on 12/09/2024 at 09:58 PM EDT Sign off status: Pending * Provider: Rodney Trujillo MD Date: 06/02/2023 Generated for Lino arias/Natalya/eTryitting on: 0 12/09/2024 09:58 PM EDT
--- OUTSIDE RECORDS SUMMARY | 2024-04-08 04:15 | XMS_ITS ---
Author Organization The [facility] in [place] Address [address] [place] [address] Care Team Providers Care Guest Experience Manager Name Role Phone Laura FRIEDMAN, Emerald Primary Care Provider Bernardo Busch [phone] REASON FOR VISIT RT ankle arthroscopy Encounters Encounter Location Date Provider Diagnosis [facility] OUT[facility] [address] [place] [address] 04/08/2024 Bernardo Duong Plan Of Treatment No Information Progress Notes * Belgica BARNETTDOB: [birth year] (34 yo F)Acc No.[id number]:04/08/2024 UNLOCKED PROGRESS NOTE Patient: Belgica SIMON Provider: Palomo Duong DPM, MS :1990 A ge:33 Y S ex:Female Date:04/08/2024 Address:[address] [place], [place] [id number] Pcp:Emerald Sanchez MD * * Electronic signature of Saul uDong DPM on 12/09/2024 at 09:58 PM EDT Sign off status: Pending Visit Status: C ANC (Cancelled) * Provider: Palomo Duong DPM, MS Date: 06/09/2023 Generated for Printi ng/Faxing/eTransmitting on: 0 12/09/2024 09:58 PM EDT
--- OUTSIDE RECORDS SUMMARY | 2024-04-15 08:41 | XMS_ITS ---
Author Organization The [facility] in [place] Address [address] [place] [address] Care Team Providers Care Furniture Dipper Name Role Phone Emerald Sanchez MD Primary Care Provider Bernardo Busch [phone] Encounters Encounter Location Date Provider Diagnosis [facility] [address] [place] [address] 04/15/2024 Bernardo Duong Plan Of Treatment No Information Progress Notes * Belgica BARNETTDOB: [birth year] (33 yo F)Acc No.[id number]:04/15/2024 Patient: Hannah SIMONsica :1990 A ge:33 Y S ex:Female Address:[address], [address] * true * Date: Generated for Lino arias/Afiag/eTransmitting on: 0 12/09/2024 09:58 PM EDT
--- OUTSIDE RECORDS SUMMARY | 2024-04-19 07:45 | XMS_ITS ---
Author Organization The [facility] in [place] Address [address] [place] [address] Care Team Providers Care Machine Stamper Name Role Phone Emerald Sanchez MD Primary Care Provider Bernardo Busch [phone] Encounters Encounter Location Date Provider Diagnosis [facility] ([facility] [address] [place] [address] [place] [address] 04/19/2024 Bernardo Duong Plan Of Treatment No Information Progress Notes * Belgica BARNETTDOB: [birth year] (33 yo F)Acc No.[id number]:04/19/2024 Patient: Jody SIMONca :1990 A ge:33 Y S ex:Female Address:[address] [place] [address], [address] * true * Date: Generated for Printi ng/Facherrig/eTransmitting on: 0 12/09/2024 09:56 PM EDT
--- OUTSIDE RECORDS SUMMARY | 2024-11-15 07:00 | XMS_ITS ---
Author Organization [employer] es Address [address] [place] [address] Care Team Providers Care Cull Grader Name Role Phone Radha Rosas Primary Care Provider REASON FOR VISIT BH F/U Encounters Encounter Location Date Provider Diagnosis [facility] [address] [place] [address] 11/15/2024 Radha Rosas Plan Of Treatment Next Appt Details Provider Name:Radha sal, 12/25/2024 09:45:00 AM, [address] [place], [address], Progress Notes * ORION HARPER ADOB: [birth year] (34 yo F)Acc No.[id number]:11/15/2024 Behavioral Health Patient: ORION SIMON Provider: Mary Ellen Rosas CNP :1990 A ge:34 Y S ex:Female Date:11/15/2024 Address:[address] [place] [id number] Subjective: * Chief Complaints: * 1 . BH F/U. * Medical History: Objective: * Vitals: Assessment: Plan: * Treatment: * Images: * Electronic signature of SHYANNE Christie on 12/09/2024 at 09:56 PM EDT Sign off status: Pending * Provider: Mary Ellen Rosas CNP Date: 11/15/2024 Generated for Aleenai hugo/Natalya/eTransmitting on: 0 12/09/2024 09:56 PM EDT
--- OUTSIDE RECORDS SUMMARY | 2024-12-06 04:30 | XMS_ITS ---
Author Organization [employer] es Address [address] [place] [place] [address] Care Team Providers Care Senior Business Intelligence Analyst Name Role Phone Radha Rosas Primary Care Provider Encounters Encounter Location Date Provider Diagnosis [facility] [place] [address] [place] [address] 12/06/2024 Radha Rosas Plan Of Treatment Next Appt Details Provider Name:Radha Chao n, 12/25/2024 09:45:00 AM, [address] [place], [address], Progress Notes * ORION HARPER ADOB: [birth year] (34 yo F)Acc No.[id number]:12/06/2024 Behavioral Health Patient: ORION SIMON Provider: Mary Ellen Rosas CNP :1990 A ge:34 Y S ex:Female Date:12/06/2024 Address:[address] [place], [place] [id number] Subjective: * Chief Complaints: * * Medical History: Objective: * Vitals: Assessment: Plan: * Treatment: * Images: * Electronic signature of SHYANNE Christie on 12/09/2024 at 09:56 PM EDT Sign off status: Pending * Provider: Mary Ellen Rosas CNP Date: 12/06/2024 Generated for Printi ng/Facherrig/eTransmitting on: 12/09/2024 09:56 PM EDT
--- OUTSIDE RECORDS SUMMARY | 2024-12-06 09:45 | XMS_ITS ---
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 no concerns with feeling down, that has improved. Sleeping is not going very well, she is on the doxepin 100mg 3 caps, and it is not helping go to sleep or stay asleep. Wanted to discuss different options for her sleep and anxiety. She stated her appetite is okay. She was recently in Mental Health rehab in [place] for 33 days October 31 - December 02. The new meds were added. They wanted her to discuss borderline personality disorder. Medications Medication SIG (Take, Route, Frequency, Duration) Notes Start Date End Date Status hydrOXYzine Pamoate 50 MG 1 capsule Oral twice a day; Duration: 30 days Active OLANZapine 2.5 MG 1 tablet Orally ; Duration: 30 days 12/06/2024 Active Cyclobenzaprine HCl 5 MG TAKE 1 TABLET B Y MOUTH THREE TIMES A DAY FOR 14 DAYS Oral; Duration: 14 Days Active Escitalopram Oxalate 20 MG Oral; Duration: 30 Days Active Prazosin HCl 2 MG Oral; Duration: 30 Days Active buPROPion HCl ER (XL) 300 MG Oral; Duration: 30 Days Active Trelegy Ellipta 100-62.5-25 MCG/ACT 1 puff Inhalation Once a day Active Singulair 10 MG 1 tablet Orally Once a day Active clomiPRAMINE HCl 50 MG 2 capsule at bedt estiven Orally Once a day; Duration: 30 days Active Propranolol HCl 10 MG 1 tablet Orally tw ice a day; Duration: 30 days 09/30/2024 Active Cephalexin 250 MG 1 capsule Orally Onc e a day Active tiZANidine HCl 4 MG 1 tablet every 6 hrs prn Orally Once a day Active Social History Tobacco Use: Social History Observation Description Date Details (start date - stop date) Former Smoker NA - NA Depression Screening (PHQ-9): Question Answer Notes Little interest or pleasure in doing things More than half the days Feeling down, depressed, or hopeless Nearly ever y day Trouble falling or staying a sleep, or sleeping too much Nearly every day Feeling tired or having little energy Nearly erlin ry day Poor appetite or overeating More than half the d ays Feeling bad about yourself-o r that you are a failure or have let yourself or your family down Nearly every day Trouble concentrating on thi ngs, such as reading the newspaper or watching television Nearly every day Moving or speaking so slowly that other people could have noticed. Or the opposite being so fidgety or restless that you have been moving around a lot more than usual More than half the days Thoughts that you would be b lance off , or of hurting yourself in some way More than half the days(Consider Suicide Assessment Risk) Total Score 23 Intepretation Severe Depression AUDIT-C (Standard) Question Answer Notes Did you have a drink contain ing alcohol in the past year? Yes How often did you have a dri nk containing alcohol in the past year? 2 to 3 times a week (3 points) How many drinks did you have on a typical day when you were drinking in the past year? 5 or 6 drinks (2 points) How often did you have six o r more drinks on one occasion in the past year? 2 to 3 times per week (3 points) Points 8 Interpretation Positive Tobacco Control (Standard) Question Answer Notes Tobacco use: Former smoker How long has it been since you last smoked? Jeremie ter than 10 years Vital Signs Height 62 in 12/06/2024 Weight 197.0 lbs 12/06/2024 BMI 36.03 kg/m2 12/06/2024 Blood pressure systolic 143 mm Hg 12/07/19 25 Blood pressure diastolic 93 mm Hg 025 Oximetry 98 % 12/06/2024 Heart Rate 102 /min 12/06/2024 Respiratory Rate 20 /min 12/06/2024 Encounters Encounter Location Date Provider Diagnosis [facility] [address] [place] [address] 12/06/2024 Radha Rosas Bipolar 1 disorde r F31.9 Assessments Encounter Date Diagnosis (ICD Code) Assessment Notes Treatment Notes Treatment Clinical Notes Section Notes 12/06/2024 Bipolar 1 disorder (ICD-10 - F31.9) medications were discontinued while at rehab in [place]. will trial Olanzapine 2.5mg BID Patient will continue current treatment plan. Patient verbally acknowledges understanding instructions including medication education and has no further questions comments or concerns at this time. . Follow in 1 Month . Recommended treatment for Bipolar disorder includes FDA approved and OFF label medications: second generation antipsychotics and mood stabilizers. Second generation antipsychotic medications can cause headache, drowsiness, agitation, dizziness, nausea, or extrapyramidal symptoms such as tremors, muscle spasms, slowness of movement or jerking of muscles. . Stable . The patient verbalizes understanding with all questions answered thoroughly and is in agreement with treatment plan. . Continue current treatment. Call for problems . GOALS: . Maintain medication regimen . _Improve mood stability . _Improve anxiety control . _Improve social and interpersonal functioning . Patient/Guardian will call sooner if symptoms worsen. Patient understands to go to ER if needed if symptoms become severe. . Crisis Intervention plan was discussed and agreed upon. Patient/Guardian will call 911 in case of emergency. Emergency contact information was provided to the patient/guardian. . Pharmacological management: . Alternative medication plans were discussed with the patient/guardian. All relevant side effects and potential adverse effects were discussed with the patient/guardian. Standard cautions and potential benefits were discussed. Patient/Guardian consented to the start/continuation of the treatment. 12/06/2024 Other Body Mass Index : Care Instructions material was published, Body Mass Index: Care Instructions material was printed Plan Of Treatment Medication Medication Name Sig Start Date Stop Date Notes hydrOXYzine Pamoate 50 MG 1 capsule Oral twice a day; Duration: 30 days OLANZapine 2.5 MG 1 tablet Orally twic e a day; Duration: 30 days 12/06/2024 Vraylar 4.5 MG 1 capsule Orally Once a day Citalopram Hydrobromide 10 MG 1 tablet Orally Once a day Doxepin HCl 100 MG 3 capsule at bedtime Orally Once a day 12/06/2024 Treatment Notes Assessment Notes Bipolar 1 disorder medications were discontinued while at rehab in [place]. will trial Olanzapine 2.5mg BID Patient will continue current treatment plan. Patient verbally acknowledges understanding instructions including medication education and has no further questions comments or concerns at this time. . Follow in 1 Month . Recommended treatment for Bipolar disorder includes FDA approved and OFF label medications: second generation antipsychotics and mood stabilizers. Second generation antipsychotic medications can cause headache, drowsiness, agitation, dizziness, nausea, or extrapyramidal symptoms such as tremors, muscle spasms, slowness of movement or jerking of muscles. . Stable . The patient verbalizes understanding with all questions answered thoroughly and is in agreement with treatment plan. . Continue current treatment. Call for problems . GOALS: . Maintain medication regimen . _Improve mood stability . _Improve anxiety control . _Improve social and interpersonal functioning . Patient/Guardian will call sooner if symptoms worsen. Patient understands to go to ER if needed if symptoms become severe. . Crisis Intervention plan was discussed and agreed upon. Patient/Guardian will call 911 in case of emergency. Emergency contact information was provided to the patient/guardian. . Pharmacological management: . Alternative medication plans were discussed with the patient/guardian. All relevant side effects and potential adverse effects were discussed with the patient/guardian. Standard cautions and potential benefits were discussed. Patient/Guardian consented to the start/continuation of the treatment. Other Body Mass Index: Car e Instructions material was published, Body Mass Index: Care Instructions material was printed Next Appt Details Follow Up: 3 Weeks, Reason: BH f/u Provider Name:Radha sal, 12/25/2024 09:45:00 AM, [address] [place] [address], [id number], Progress Notes * ORION HARPER ADOB: [birth year] (34 yo F)Acc No.[id number]:12/06/2024 Behavioral Health Patient: Shaniqua ORION GRANDA Provider: Mary Ellen Rosas CNP :1990 A ge:34 Y S ex:Female Date:12/06/2024 Address:[address] [place], [place] [id number] Subjective: * Chief Complaints: * B H F/U34 year old female presents for 1 month follow up , stated her fatigue has stayed the same. no concerns with feeling down, that has improved. Sleeping is not going very well, she is on the doxepin 100mg 3 caps, and it is not helping go to sleep or stay asleep. Wanted to discuss different options for her sleep and anxiety. She stated her appetite is okay. She was recently in Mental Health rehab in [place] for 33 days October 31 - December 02. The new meds were added. They wanted her to discuss borderline personality disorder. * HPI: D epression Screening: PHQ-2 (2015 Edition) L ittle interest or pleasure in doing things??Not at all F eeling down, depressed, or hopeless? N ot at all T otal Score 0 C onstitutional: Pt is being seen today for follow up via in-office visit. Pt is tolerating meds well and taking medications daily. . Pt states was released from rehab in [place] on dec 02. She states she got a DUI October 28. Her and her are and is currently l iving with her mom. She does get to see her children.? . Pt denies mood fluctuation. Energy and motivation are stable. Depressive symptoms are not persistent. Denies episodes of having sadness, anhedonia, isolating behaviors, or crying spells. Anxiety is not controlled. Concentration intact without distractibility. . is not sleeping through the night, with difficulty falling and staying asleep. c/o Nightmares. Appetite is good. eating 2-3 meals per day. . Denies Euphoria. Pervasive irritability is not controlled today. Meaningful relationships intact. Denies increased goal-oriented behavior or increase in purposeless activity. still off on FMLA . Denies suicidal or homicidal ideation or plan. No morbid thoughts. Interpersonal issues discussed. Support provided. Insight oriented/ Behavior modifying/ Supportive therapy . Plan: stop Vraylar, stop celexa, stop quetiapine, start Olanzapine 2.5mg BID, change hydroxyzine 50mg to BID. FMLA paperwork will be completed with next OV 9-5 with RTW 12-29-24 attentively. * ROS: C ONSTITUTIONAL: No fever, chills, sweats, weakness SKIN: No jaundice, rash, lesions, petechiae GASTROINTESTINAL: No nausea, vomiting, diarrhea, or GI bleeding MUSCULOSKELETAL: No muscle pain or weakness NEUROLOGIC: No headache, dizziness, numbness, or weakness . * Medical History: * Surgical History: A NKLE SURGERY 05/2024LAP AT CSECTION GALLBLADDER 3CSECTION X 3 * Hospitalization/Major Diagno stic Procedure: D enies Past Hospitalization * Family History: F ather: . M other: alive, diagnosed with Diabetes, Mental Illness, Hypertension.?3 daughter(s) . . * Social History: G eneral: D epression Screening (PHQ-9) L ittle interest or pleasure in doing things?More than half the days F eeling down, depressed, or hopeless N early every day T rouble falling or staying asleep, or sleeping too much N early every day F eeling tired or having little energy N early every day P oor appetite or overeating M ore than half the days F eeling bad about yourself-or that you are a failure or have let yourself or your family down N early every day T rouble concentrating on things, such as reading the newspaper or watching television N early every day M oving or speaking so slowly that other people could have noticed. Or the opposite being so fidgety or restless that you have been moving around a lot more than usual M ore than half the days T houghts that you would be better off , or of hurting yourself in some way M ore than half the days(Consider Suicide Assessment Risk) T otal Score 2 3 I ntepretation S evere Depression Transition of Care E R/UC/hospital since last office visit? Y es, report on file [facility] for attempted suicide 08/14/24 Behaviors affecting health P oor/Risky Behaviors: D enies- Substance abuse/mental health issues of patient/family P atient - C affeine Use, Alcohol Social/Support Concerns P atient: N o Ability to understand healthcare/treatment P atient: F air Communication Barrier L anguage Barrier?: N o D rug/Alcohol: A BENJAMIN-C (Standard) D id you have a drink containing alcohol in the past year? Y es H ow often did you have a drink containing alcohol in the past year? 2 to 3 times a week (3 points) H ow many drinks did you have on a typical day when you were drinking in the past year? 5 or 6 drinks (2 points) H ow often did you have six or more drinks on one occasion in the past year? 2 to 3 times per week (3 points) P oints 8 I nterpretation P ositive T obacco Use: T obacco Control (Standard) T obacco use: F ormer smoker H ow long has it been since you last smoked??Greater than 10 years * Medications: T akingtiZANidine HCl 4 MG Tablet 1 tablet every 6 hrs prn Orally Once a day Cephalexin 250 MG Capsule 1 capsule Orally Once a day Trelegy Ellipta 100-62.5-25 MCG/ACT Aerosol Powder Breath Activated 1 puff Inhalation Once a day Singulair 10 MG Tablet 1 tablet Orally Once a day clomiPRAMINE HCl 50 MG Capsule 2 capsule at bedtime Orally Once a day Propranolol HCl 10 MG Tablet 1 tablet Orally twice a day buPROPion HCl ER (XL) 300 MG Tablet Extended Release 24 Hour Oral Prazosin HCl 2 MG Capsule Oral hydrOXYzine Pamoate 50 MG Capsule 1 CAPSULE EVERY 6 HOURS NEEDED FOR ANXIETY Oral Cyclobenzaprine HCl 5 MG Tablet TAKE 1 TABLET BY MOUTH THREE TIMES A DAY FOR 14 DAYS Oral Escitalopram Oxalate 20 MG Tablet Oral Taking tiZANidine HCl 4 MG Tablet 1 tablet every 6 hrs prn Orally Once a day Taking Cephalexin 250 MG Capsule 1 capsule Orally Once a day Taking Trelegy Ellipta 100-62.5-25 MCG/ACT Aerosol Powder Breath Activated 1 puff Inhalation Once a day Taking Singulair 10 MG Tablet 1 tablet Orally Once a day Taking clomiPRAMINE HCl 50 MG Capsule 2 capsule at bedtime Orally Once a day Taking Propranolol HCl 10 MG Tablet 1 tablet Orally twice a day Taking buPROPion HCl ER (XL) 300 MG Tablet Extended Release 24 Hour Oral Taking Prazosin HCl 2 MG Capsule Oral Taking hydrOXYzine Pamoate 50 MG Capsule 1 CAPSULE EVERY 6 HOURS NEEDED FOR ANXIETY Oral Taking Cyclobenzaprine HCl 5 MG Tablet TAKE 1 TABLET BY MOUTH THREE TIMES A DAY FOR 14 DAYS Oral Taking Escitalopram Oxalate 20 MG Tablet Oral DiscontinuedVraylar 4.5 MG Capsule 1 capsule Orally Once a day Citalopram Hydrobromide 10 MG Tablet 1 tablet Orally Once a day Doxepin HCl 100 MG Capsule 3 capsule at bedtime Orally Once a day cloNIDine HCl 0.1 MG Tablet 1 tablet Orally Once a day QUEtiapine Fumarate ER 50 MG Tablet Extended Release 24 Hour 1 tablet in the evening Orally Once a day Prazosin HCl 1 MG Capsule Oral Adderall XR 10 MG Capsule Extended Release 24 Hour 1 capsule in the morning Orally Once a day Adderall XR 30 MG Capsule Extended Release 24 Hour 1 capsule in the morning Orally Once a day buPROPion HCl ER (XL) 150 MG Tablet Extended Release 24 Hour 1 tablet in the morning Orally Once a day Metoprolol Tartrate 25 MG Tablet 1 tablet with food Orally Twice a day Phentermine HCl 37.5 MG Tablet 1 tablet before breakfast Orally Once a day Medication List reviewed and reconciled with the patientDiscontinued Vraylar 4.5 MG Capsule 1 capsule Orally Once a day Discontinued Citalopram Hydrobromide 10 MG Tablet 1 tablet Orally Once a day Discontinued Doxepin HCl 100 MG Capsule 3 capsule at bedtime Orally Once a day Discontinued cloNIDine HCl 0.1 MG Tablet 1 tablet Orally Once a day Discontinued QUEtiapine Fumarate ER 50 MG Tablet Extended Release 24 Hour 1 tablet in the evening Orally Once a day Discontinued Prazosin HCl 1 MG Capsule Oral Discontinued Adderall XR 10 MG Capsule Extended Release 24 Hour 1 capsule in the morning Orally Once a day Discontinued Adderall XR 30 MG Capsule Extended Release 24 Hour 1 capsule in the morning Orally Once a day Discontinued buPROPion HCl ER (XL) 150 MG Tablet Extended Release 24 Hour 1 tablet in the morning Orally Once a day Discontinued Metoprolol Tartrate 25 MG Tablet 1 tablet with food Orally Twice a day Discontinued Phentermine HCl 37.5 MG Tablet 1 tablet before breakfast Orally Once a day Medication List reviewed and reconciled with the patient * Allergies: N .K.D.A.no[Allergies Verified] Objective: * Vitals: H t: 62 in, Wt: 197.0 lbs, BMI:36.03Index, BP: 143/93 mm Hg, SaO2:98%, HR: 102 /min, RR: 20 /min. * Examination: G eneral Examination: . AIMS EXAM: . AIMS Muscles of Facial Expression: None AIMS Lips and Perioral Area: None AIMS Jaw Area Involuntary Movements: None AIMS Tongue Involuntary Movements: None AIMS Upper Arms, Wrists, Hands, Fingers: None AIMS Lower Legs, Knees, Ankles, Toes: None AIMS Overall Abnormal Movement Severity: None AIMS Incapacitation Abnormal Movement: None AIMS Self Awareness of Abnormal Movement: Aware, None noted AIMS Current Teeth, Denture Problems: No AIMS Movements Disappear in Sleep: No . . MENTAL STATUS EXAM: . Appearance: Appropriately dressed and groomed, good eye contact, cooperative, pleasant Behavior/Motor Activity: Normal Gait/Station: Within normal limits BH Speech: Normal Mood: Good Affect: Full Thought processes/Associations: Logical and goal directed Thought Content: Non-psychotic Cognition/Attention/Memory/Concentration: Alert and oriented x 4; grossly intact attention; memory-recent/remote judged adequate by interviewer Insight: Good Judgement: Good language: Within normal limits Fund of Knowledge: Adequate . . Assessment: * Assessment: 1. B ipolar 1 disorder - F31.9 Plan: * Treatment: 2. O thers Decrease hydrOXYzine Pamoate Capsule, 50 MG, 1 capsule, Oral, twice a day, 30 days, 60 Capsule, Refills 0; S top Doxepin HCl Capsule, 100 MG, 3 capsule at bedtime, Orally, Once a day; S top Citalopram Hydrobromide Tablet, 10 MG, 1 tablet, Orally, Once a day. Notes: Body Mass Index: Care Instructions material was published, Body Mass Index: Care Instructions material was printed * Procedure Codes: 3 080F DIAST BP = 90 MM [id number] RVW MEDS BY RX/DR IN [id number] SYST BP >= 140 MM HG * Preventive Medicine: COUNSELING: C ommunication to patient: Counseling for Nutrition Provided Y es Counseling for Physical Activity Provided Y es BMI management provided Y es Nutrition/Dietary Counseling provided?Yes * Follow Up: 3 Weeks (Reason: f/u) * Images: * Sign off status: Completed true * Provider: Mary Ellen Rosas CNP Date: 12/06/2024 Generated for Lino arias/Natalya/Vega on: 12/09/2024 09:57 PM EDT History and Physical Notes * HPI (History of Present Illness) Category Sub-Category Detail Notes Category Not es Depression Screening PHQ-2 (2015 Edition) Little interest or pleasure in doing things?: Not at all Feeling down, depressed, or hopeless?: N ot at all Total Score: 0 Constitutional Pt is being seen today for follow up via in-office visit. Pt is tolerating meds well and taking medications daily. . Pt states was released from rehab in [place] on dec 02. She states she got a DUI October 28. Her and her are and is currently living with her mom. She does get to see her children. . Pt denies mood fluctuation. Energy and motivation are stable. Depressive symptoms are not persistent. Denies episodes of having sadness, anhedonia, isolating behaviors, or crying spells. Anxiety is not controlled. Concentration intact without distractibility. . is not sleeping through the night, with difficulty falling and staying asleep. c/o Nightmares. Appetite is good. eating 2-3 meals per day. . Denies Euphoria. Pervasive irritability is not controlled today. Meaningful relationships intact. Denies increased goal-oriented behavior or increase in purposeless activity. still off on FMLA . Denies suicidal or homicidal ideation or plan. No morbid thoughts. Interpersonal issues discussed. Support provided. Insight oriented/ Behavior modifying/ Supportive therapy . Plan: stop Vraylar, stop celexa, stop quetiapine, start Olanzapine 2.5mg BID, change hydroxyzine 50mg to BID. FMLA paperwork will be completed with next OV 9-5 with RTW 12-29-24 attentively. Examination Category Sub-Category Detail Notes Category Not es General Examination . AIMS EXAM: . AIMS Muscles of Facial Expression: None AIMS Lips and Perioral Area: None AIMS Jaw Area Involuntary Movements: None AIMS Tongue Involuntary Movements: None AIMS Upper Arms, Wrists, Hands, Fingers: None AIMS Lower Legs, Knees, Ankles, Toes: None AIMS Overall Abnormal Movement Severity: None AIMS Incapacitation Abnormal Movement: None AIMS Self Awareness of Abnormal Movement: Aware, None noted AIMS Current Teeth, Denture Problems: No AIMS Movements Disappear in Sleep: No . . MENTAL STATUS EXAM: . Appearance: Appropriately dressed and groomed, good eye contact, cooperative, pleasant Behavior/Motor Activity: Normal Gait/Station: Within normal limits BH Speech: Normal Mood: Good Affect: Full Thought processes/Associations: Logical and goal directed Thought Content: Non-psychotic Cognition/Attention/Memory/Con centration: Alert and oriented x 4; grossly intact attention; memory-recent/remote judged adequate by interviewer Insight: Good Judgement: Good BH language: Within normal limits Fund of Knowledge: Adequate .
--- OUTSIDE RECORDS SUMMARY | 2024-12-09 13:00 | XMS_ITS | Encounter Summary ---
Author Organization [facility] Address [address] [place] [address] Care Team Providers Care Test Grader Name Role Phone Emerald Sanchez MD Unavailable Emerald Sanchez MD Primary Care Provider [phone] Reason for Visit * Reason Comments Foot Numbness EMG LLE Encounter Details Date Type Department Care Team (Latest Contact Info) Description 12/09/2024 1:00 PM EDT Procedure Visit [facility] [address] [place] [id number] Lumbar radiculopathy Social History Tobacco Use Types Packs/Day Years Used Date Smoking Tobacco: Former Cigarettes Smokeless Tobacco: Never Alcohol Use Standard Drinks/Week Comments Yes 2 (1 standard drink = 0.6 oz pur e alcohol) B1300 Health Literacy Answer Date Recor ded How often do you need to hav e someone help you when you read instructions, pamphlets, or other written material from your doctor or pharmacy? Never 05/09/2024 Humiliation, Afraid, Rape, and Kick questionnair e Answer Date Recorded Within the last year, have y ou been afraid of your partner or ex-partner? No 04/18/2023 Within the last year, have y ou been humiliated or emotionally abused in other ways by your partner or ex-partner? No Within the last year, have y ou been kicked, hit, slapped, or otherwise physically hurt by your partner or ex-partner? No 04/18/2023 Within the last year, have y ou been raped or forced to have any kind of sexual activity by your partner or ex-partner? No 04/18/2023 Social Connection and Isolation Panel [NHANES] A nswer Date Recorded In a typical week, how many times do you talk on the phone with family, friends, or neighbors? Twice a week 05/09/2024 How often do you get together with friends or re latives? Once a week 05/09/2024 How often do you attend mu-ism or sabianist serv ices? Never 05/09/2024 Do you belong to any clubs o r organizations such as mu-ism groups, unions, fraternal or athletic groups, or school groups? Yes 05/09/2024 How often do you attend meet ings of the clubs or organizations you belong to? Never 05/09/2024 Are you , , di vorced, , never , or living with a partner? 05/09/2024 AUDIT-C Answer Date Recorded Q1: How often do you have a drink containing alc ohol? 2-4 times a month 05/09/2024 Q2: How many drinks containi ng alcohol do you have on a typical day when you are drinking? 1 or 2 05/09/2024 Q3: How often do you have si x or more drinks on one occasion? Less than monthly 05/09/2024 Overall Financial Resource Strain (CARDIA) Answe r Date Recorded How hard is it for you to pa y for the very basics like food, housing, medical care, and heating? Not hard at all 05/09/2024 PHQ-2 Answer Date Recorded Patient Health Questionnaire-2 Score 4 10/08/2024 [facility] - Occupational Stress Questionnaire Answer Date Recorded Do you feel stress - tense, restless, nervous, or anxious, or unable to sleep at night because your mind is troubled all the time - these days? Very much 05/09/2024 Exercise Vital Sign Answer Date Recorde d On average, how many days pe r week do you engage in moderate to strenuous exercise (like a brisk walk)? 0 days 05/09/2024 On average, how many minutes do you engage in exercise at this level? 0 min 05/09/2024 Hunger Vital Sign Answer Date Recorded Within the past 12 months, y ou worried that your food would run out before you got the money to buy more. Never true 05/09/19 25 Within the past 12 months, t he food you bought just didn't last and you didn't have money to get more. Never true 05/09/2024 PRAPARE - Transportation Answer Date Re corded In the past 12 months, has l ack of transportation kept you from medical appointments or from getting medications? No 04/24 In the past 12 months, has l ack of transportation kept you from meetings, work, or from getting things needed for daily living? No 05/09/2024 Housing Stability Vital Sign Answer Celso e Recorded In the last 12 months, was t here a time when you were not able to pay the mortgage or rent on time? No 04/18/2023 In the last 12 months, how many places have you lived? 1 04/18/2023 In the last 12 months, was t here a time when you did not have a steady place to sleep or slept in a alf (including now)? No 04/18/2023 Housing Stability Vital Sign Answer Celso e Recorded In the last 12 months, was t here a time when you were not able to pay the mortgage or rent on time? No 05/09/2024 In the past 12 months, how m any times have you moved where you were living? 0 05/09/2024 At any time in the past 12 m [facility], were you homeless or living in a alf (including now)? No 05/09/2024 Comments No Sex and Gender Information Value Date Recorded Sex Assigned at Not on file Legal Sex Female 7:29 PM EDT Gender Identity Not on file Sexual Orientation Not on file documented as of this encounter Progress Notes * Mark Lucio - 12/09/2024 1:00 PM EDT EMG LLE documented in this encounter Plan of Treatment Upcoming Encounters Date Type Department Care Team (Late st Contact Info) Description 12/13/2024 9:40 AM EDT Office Visit [facility] [address] [facility] [place] [address] Milton Duvall, DPM FACFAS [address] [place] [place] [address] 12/26/2024 1:20 PM EDT Office Visit [facility] [place] [facility] [address] [facility] [address] [place] [address] Jatin Cabrera MD [address] [facility] [address] [address] documented as of this encounter Goals Goal Patient Goal Type Associated Problems Recent Progress Patient-Stated? Author Help patient manage antidepressant medication Care Plan Patient on antidepressant monitoring plan No Emerald Sanchez MD Baseline PHQ-9 Care Plan Baseline PHQ-9 No Emerald Sanchez MD documented as of this encounter Visit Diagnoses Diagnosis Lumbar radiculopathy Thoracic or lumbosacral neuritis or radiculitis, unspecified documented in this encounter Additional Health Concerns Active Problems Noted Date Diagnosed Date Patient on antidepressant monitoring plan 2023 Baseline PHQ-9 05/08/2023 Assessment Noted Time PHQ-9 Depression Total Score: 18 06/ 025 11:34 AM EDT documented as of this encounter Care Teams Test Grader Relationship Specialty Start Date End Date Emerald Sanchez MD [address] [facility] [address] [place] [address] PCP - Medical [place] [employer] 10/22/18 04/23/99 Emerald Sanchez MD [address] [facility] [address] [place] [address] PCP - General Family Medicine 08/30/22 documented as of this encounter
[2024-12-09 21:35] VITALS: BP 129/96; PULSE 100; TEMP 36.6; O2SAT 100; BMI 34.2
--- NOTE | 2024-12-09 21:52 | CT_ITS ---
The [address] [address] Patient Name: ORION HARPER MRN: [id number] date: 1990 Sex: F Assigned Patient Location: ER Current Patient Location: ER Accession/Order Number: [id number] Exam Date: 12/09/2024 22:47 Report Date: 12/09/2024 22:56 At the request of: ANITRA RIGGS MD Procedure: CT abdomen pelvis wo con CT Abdomen and Pelvis withoutcontrast TECHNIQUE: Axial imaging with 2-D reconstruction. . The CT exam was performed using one or more the following dose reduction techniques: Automated exposure control, adjustment of the MA and/or Kv according to patient size, or use of the iterative reconstruction technique. COMPARISON: None History: IV dye allergy. Lower abdominal pain. History of pancreatitis LIMITATIONS: None LOWER THORAX Unremarkable LIVER: Hepatic steatosis GALLBLADDER: Cholecystectomy clips identified. BILE DUCTS: No dilatation SPLEEN: Unremarkable PANCREAS: Unremarkable ADRENAL GLANDS: Unremarkable KIDNEYS:Medullary nephrocalcinosis and punctate bilateral nonobstructing renal calculi. No hydronephrosis. AORTA: No abdominal aortic aneurysm identified. RETROPERITONEUM: No significant retroperitoneal abnormalities identified. MESENTERY:Unremarkable STOMACH:Unremarkable SMALL BOWEL: The small bowel loops are nondistended. APPENDIX: The appendix is normal. COLON: Sigmoid diverticulosis URINARY BLADDER: Urinary bladder is unremarkable. REPRODUCTIVE SYSTEM: 4 cm right ovarian cyst. Absent uterus. PNEUMOPERITONEUM: None PERITONEAL FLUID:None BONY STRUCTURES: Unremarkable ABDOMINAL WALL: Unremarkable CT/CT abdomen pelvis wo con IMPRESSION: Bilateral medullary nephrocalcinosis nonobstructing renal calculi. No hydronephrosis. 4 cm right ovarian cyst. No CT findings of acute pancreatitis. Impression dictated by: Homero Oakes M.D. 12/09/2024 10:56 PM Dictation Location: [employer] Electronically authenticated by: [id number] Y Date: 12/09/2024 22:56
--- NOTE | 2024-12-09 21:52 | ED.ABDPAIN1 ---
HPI - Abdominal Pain General Chief Complaint: Abdominal Pain Stated Complaint: STOMACH PAINS Time Seen by Provider: 12/09/24 21:18 Source: patient Mode of arrival: walk-in Limitations: no limitations History of Present Illness HPI narrative: This 34-year-old female with a history of pancreatitis and alcohol use/abuse presents for evaluation of upper abdominal pain and pain underneath her ribs bilaterally associated with nausea and vomiting. She states the symptoms started after eating several hours ago. She had 1 episode of vomiting. She does not have any chest pain or shortness of breath. She has not had any fever. The patient is status post hysterectomy and cholecystectomy. Earlier this year she was transferred to a psychiatric center after she overdosed on benzodiazepines, amphetamines and alcohol. She is vague about her ongoing alcohol use. Related Data Home Medications ?Medication ?Instructions ?Recorded ?Confirmed albuterol sulfate 90 mcg/actuation 2 inh inhalation Q4H PRN shortness 02/06/23 12/09/24 aerosol inhaler of breath or wheezing cariprazine 4.5 mg capsule 4.5 mg PO QPM 02/06/23 12/09/24 (Vraylar) epinephrine 0.3 mg/0.3 mL 0.3 ml subcut Q4H PRN anaphylaxis 02/06/23 12/09/24 injection, auto-injector dextroamphetamine-amphetamine ER 30 mg PO QDAY 03/17/24 12/09/24 30 mg 24hr capsule,extend release escitalopram oxalate 20 mg tablet 20 mg PO QDAY 03/17/24 12/09/24 dextroamphetamine-amphetamine ER 10 mg PO DAILY 08/14/24 12/09/24 10 mg 24hr capsule,extend release fluticasone fur. 100 mcg-umeclid 1 inh inhalation DAILY 08/14/24 12/09/24 62.5 mcg-vilant 25 mcg inhalat.powder (Trelegy Ellipta) metoprolol succinate 25 mg 25 mg PO DAILY 08/14/24 12/09/24 tablet,extended release 24 hr montelukast 10 mg tablet 10 mg PO .QHS 08/14/24 12/09/24 albuterol sulfate 90 mcg/actuation 2 puff inhalation Q6H PRN 08/15/24 08/15/24 aerosol inhaler shortness of breath or wheezing clomipramine 50 mg capsule 50 mg PO .QHS 08/15/24 12/09/24 bupropion HCl 300 mg 24 hr tablet, mg PO 12/09/24 extended release flexeral 12/09/24 Previous Rx's ?Medication ?Instructions ?Recorded hydrocodone 5 mg-acetaminophen 325 1 tab PO Q4H PRN pain #10 tabs 09/06/24 mg tablet Allergies Allergy/AdvReac Type Severity Reaction Status Date / Time cat dander Allergy Anaphylaxis Verified 12/09/24 21:35 Iodinated Contrast Media Allergy Hives Verified 12/09/24 21:35 Review of Systems ROS Status of ROS 10 or more systems reviewed and unremarkable except as noted in history and below [facility] Medical History (Updated 12/09/24 @ 23:11 by Kenya Rivers MD) Hypoxia ?R09.02 - Hypoxemia (ICD-10) Metabolic acidosis ?E87.20 - Acidosis, unspecified (ICD-10) Elevated liver function tests ?R79.89 - Other specified abnormal findings of blood chemistry (ICD-10) Altered mental status ?R41.82 - Altered mental status, unspecified (ICD-10) Laceration of left wrist ?S61.512A - Laceration without foreign body of left wrist, initial encounter (ICD-10) Benzodiazepine overdose ?T42.4X1A - Poisoning by benzodiazepines, accidental (unintentional), initial encounter (ICD-10) Suicide attempt ?T14.91XA - Suicide attempt, initial encounter (ICD-10) Alcoholic intoxication ?F10.929 - Alcohol use, unspecified with intoxication, unspecified (ICD-10) Bronchitis (04/07/24) ?J40 - Bronchitis, not specified as acute or chronic (ICD-10) HTN (hypertension) ?I10 - Essential (primary) hypertension (ICD-10) Prediabetes ?R73.03 - Prediabetes (ICD-10) Suicidal ideation ?R45.851 - Suicidal ideations (ICD-10) Depression ?F32.A - Depression, unspecified (ICD-10) Anxiety ?F41.9 - Anxiety disorder, unspecified (ICD-10) 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) ?R76.11 - Nonspecific reaction to tuberculin skin test without active tuberculosis (ICD-10) Postoperative nausea and vomiting ?R11.2 - Nausea with vomiting, unspecified (ICD-10) ?Z98.890 - Other specified postprocedural states (ICD-10) 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 - depression (ICD-10) Ovarian cyst ?N83.209 - Unspecified ovarian cyst, unspecified side (ICD-10) HELLP (hemolytic anemia/elev liver enzymes/low platelets in ) ?O14.20 - HELLP syndrome (HELLP), unspecified trimester (ICD-10) Gestational hypertension ?O13.9 - Gestational [-induced] hypertension without significant proteinuria, unspecified trimester (ICD-10) Dizziness ?R42 - Dizziness and giddiness (ICD-10) Vitamin D deficiency ?E55.9 - Vitamin D deficiency, unspecified (ICD-10) Urinary tract infection ?N39.0 - Urinary tract infection, site not specified (ICD-10) Urinary frequency ?R35.0 - Frequency of micturition (ICD-10) Hypercholesterolemia ?E78.00 - Pure hypercholesterolemia, unspecified (ICD-10) Osteoarthritis, knee ?M17.9 - Osteoarthritis of knee, unspecified (ICD-10) Gastroparesis ?K31.84 - Gastroparesis (ICD-10) GERD (gastroesophageal reflux disease) ?K21.9 - Gastro-esophageal reflux disease without esophagitis (ICD-10) Dysuria ?R30.0 - Dysuria (ICD-10) Enlarged thyroid ?E04.9 - Nontoxic goiter, unspecified (ICD-10) Headache ?R51.9 - Headache, unspecified (ICD-10) Skin pain ?R20.8 - Other disturbances of skin sensation (ICD-10) Sciatica ?M54.30 - Sciatica, unspecified side (ICD-10) Poor concentration ?R41.840 - Attention and concentration deficit (ICD-10) ENGLISH (nonalcoholic steatohepatitis) ?K75.81 - Nonalcoholic steatohepatitis (ENGLISH) (ICD-10) Kidney stones ?N20.0 - Calculus of kidney (ICD-10) Mood swings ?R45.86 - Emotional lability (ICD-10) Sinusitis ?J32.9 - Chronic sinusitis, unspecified (ICD-10) Insomnia ?G47.00 - Insomnia, unspecified (ICD-10) Hypersexuality ?F52.8 - Other sexual dysfunction not due to a substance or known physiological condition (ICD-10) Hyperglycemia ?R73.9 - Hyperglycemia, unspecified (ICD-10) Elevated liver enzymes ?R74.8 - Abnormal levels of other serum enzymes (ICD-10) Dysphagia ?R13.10 - Dysphagia, unspecified (ICD-10) Diverticulitis ?K57.92 - Diverticulitis of intestine, part unspecified, without perforation or abscess without bleeding (ICD-10) Bipolar 1 disorder ?F31.9 - Bipolar disorder, unspecified (ICD-10) Attention deficit hyperactivity disorder ?F90.9 - Attention-deficit hyperactivity disorder, unspecified type (ICD-10) Abnormal involuntary movement ?R25.9 - Unspecified abnormal involuntary movements (ICD-10) Endometriosis ?N80.9 - Endometriosis, unspecified (ICD-10) Dyspareunia Pelvic pain ?R10.2 - Pelvic and perineal pain (ICD-10) History of blood transfusion ?Z92.89 - Personal history of other medical treatment (ICD-10) Anemia ?D64.9 - Anemia, unspecified (ICD-10) PTSD (post-traumatic stress disorder) ?F43.10 - Post-traumatic stress disorder, unspecified (ICD-10) Depression ?F32.A - Depression, unspecified (ICD-10) Anxiety ?F41.9 - Anxiety disorder, unspecified (ICD-10) COVID-19 ?U07.1 - COVID-19 (ICD-10) Asthma ?J45.909 - Unspecified asthma, uncomplicated (ICD-10) Migraine ?G43.909 - Migraine, unspecified, not intractable, without status migrainosus (ICD-10) Heartburn ?R12 - Heartburn (ICD-10) Constipation ?K59.00 - Constipation, unspecified (ICD-10) IBS (irritable bowel syndrome) ?K58.9 - Irritable bowel syndrome without diarrhea (ICD-10) Tachycardia ?R00.0 - Tachycardia, unspecified (ICD-10) Syncope ?R55 - Syncope and collapse (ICD-10) Surgical History (Updated 08/15/24 @ 14:49 by Lauren Denny) History of ankle surgery ?Z98.890 - Other specified postprocedural states (ICD-10) Hx of cholecystectomy ?Z90.49 - Acquired absence of other specified parts of digestive tract (ICD-10) History of cholecystectomy (03/21/23) ?Z90.49 - Acquired absence of other specified parts of digestive tract (ICD-10) History of esophagogastroduodenoscopy (EGD) ?Z98.890 - Other specified postprocedural states (ICD-10) History of colonoscopy ?Z98.890 - Other specified postprocedural states (ICD-10) History of hysterectomy ?Z90.710 - Acquired absence of both cervix and uterus (ICD-10) History of section ?Z98.891 - History of uterine scar from previous surgery (ICD-10) Family History (System 08/15/24 @ 14:49 by Lauren Denny) Other Family history of diabetes mellitus Family history of hypertension Family history of ovarian cancer PONV (postoperative nausea and vomiting) Social History (System 08/15/24 @ 14:49 by Lauren Denny) Within the past year, how often did you have a drink containing alcohol: 2-4 times a month Smoking status: Former smoker Non-prescribed substance use: cannabis (any form) 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 Highest level of school completed/degree received: high school graduate Little interest or pleasure in doing things: not at all Feeling down, depressed, or hopeless: not at all Exam Narrative Exam Narrative: Vital signs and Nursing Notes reviewed: Patient is afebrile, pulse is elevated at 100, diastolic blood pressure is elevated at 129/96, she is not hypoxic with pulse ox of 100% on room air General: Awake, alert, oriented, nontoxic but mildly uncomfortable appearing female, no respiratory distress, no active vomiting HEENT: Normocephalic atraumatic, mucous membranes are moist and pink, eyes are clear, normal conjunctiva, vision is grossly intact, posterior pharynx is normal in appearance. No scleral icterus Neck: Supple, no meningeal signs, no anterior or posterior cervical lymphadenopathy Chest: Lungs are clear to auscultation with good air entry, there is no wheezing rhonchi or rales appreciated no accessory muscle use, patient is speaking in complete sentences-no chest wall tenderness to palpation CVS: Regular rate and rhythm S1-S2, no murmurs rubs or gallops, pulses are brisk and equal bilaterally ABD: Soft, nondistended, epigastric, right upper quadrant and left upper quadrant tenderness with voluntary guarding, lower abdomen is nontender, bowel sounds are normal Extremities: Moving all extremities, no lower extremity tenderness or swelling noted, negative Homans' sign, pulses are brisk and equal bilaterally Skin: Normal in appearance without rash,pallor, petechiae or purpura Neuro: No focal deficits Constitutional Vital Signs, click to edit/add: Last Vital Signs Temp 97.8 F 12/09/24 21:35 Pulse 100 H 12/09/24 21:35 Resp 20 12/09/24 21:35 BP 129/96 H 12/09/24 21:35 Pulse Ox 100 12/09/24 21:35 O2 Del Method Room Air 12/09/24 21:35 Course Vital Signs Vital signs: Vital Signs Temperature 97.8 F 12/09/24 21:35 Pulse Rate 100 H 12/09/24 21:35 Respiratory Rate 20 12/09/24 21:35 Blood Pressure 129/96 H 12/09/24 21:35 Pulse Oximetry 100 12/09/24 21:35 Oxygen Delivery Method Room Air 12/09/24 21:35 Temperature 97.8 F 12/09/24 21:35 Pulse Rate 100 H 12/09/24 21:35 Respiratory Rate 20 12/09/24 21:35 Blood Pressure 129/96 H 12/09/24 21:35 Pulse Oximetry 100 12/09/24 21:35 Oxygen Delivery Method Room Air 12/09/24 21:35 MDM - Abdominal Pain MDM Narrative Medical decision making narrative: 34-year-old female with a history of alcohol related cirrhosis and an episode of pancreatitis presents for evaluation of upper abdominal pain with nausea and 1 episode of vomiting that started earlier in the day after eating. She is not having any chest pain or shortness of breath. She has not had any fever. She has not had any diarrhea. She was recently seen in this emergency department after an overdose and referred to inpatient psychiatry. She does not verbalize any suicidal or homicidal ideation at this time. She seems calm and cooperative. An IV was placed and she was medicated with IV fluids, Zofran, Pepcid and 4 mg of morphine. Routine labs are reviewed. She has a normal white count and hemoglobin. Electrolytes are normal. She does have an elevated ALT and alkaline phosphatase which are chronic in nature. Bilirubin is normal. Lactic acid is normal. Lipase is normal. Due to the history of overdose in the past I added on aspirin and Tylenol levels which are both normal. CT scan of the abdomen pelvis is negative for acute findings besides nephrocalcinosis and an ovarian cyst. She is not having any flank pain, urinary symptoms or pelvic related symptoms. I feel these are incidental findings and not related to her presentation. CT scan did not show any acute pancreatitis. The results of the labs and CT scan were discussed with the patient. She verbalizes understanding. After being treated she was given ice chips which she tolerated without difficulty. She will be discharged home at this time to follow-up closely with her family physician. Due to the potential for acute lung prolongation with her psychiatric medications I did not discharge her home with a prescription for Zofran or other antiemetics. Lab Data Labs: Lab Results 12/09/24 Range/Units 22:10 WBC 10.7 (4.0-11.0) 10^3/uL RBC 4.14 L (4.20-5.40) 10^6/uL Hgb 13.4 (12.0-16.0) g/dL Hct 39.3 (36.0-48.0) % MCV 94.9 (81.0-99.0) fL MCH 32.4 (26.7-34.0) pg MCHC 34.1 (29.9-35.2) g/dL RDW 12.4 (11.0-15.0) % Plt Count 231 (150-450) 10^3/uL MPV 10.6 (9.5-13.5) fL Neut % (Auto) 61.7 (43.0-75.0) % Lymph % (Auto) 28.7 (20.5-60.0) % [place] % (Auto) 5.0 (1.7-12.0) % Eos % (Auto) 3.1 (0.9-7.0) % Baso % (Auto) 0.4 (0.2-2.0) % Neut # (Auto) 6.6 H (1.4-6.5) 10^3/uL Lymph # (Auto) 3.1 (1.2-3.8) 10^3/uL [place] # (Auto) 0.5 (0.3-0.8) 10^3/uL Eos # (Auto) 0.3 (0.0-0.7) 10^3/uL Baso # (Auto) 0.0 (0.0-0.1) 10^3/uL Abs Immat Gran (auto) 0.12 H (0.00-0.03) 10^3/uL Imm/Tot Granulo (auto) 1.1 H (0.0-0.5) % Sodium 140 (136-145) mmol/L Potassium 3.4 L (3.5-5.1) mmol/L Chloride 105 (98-107) mmol/L Carbon Dioxide 28.8 (21.0-32.0) mmol/L Anion Gap 9.6 BUN 15.0 (7.0-18.0) mg/dL Creatinine 0.97 (0.55-1.02) mg/dL Est GFR ( Amer) >60 (>=60 mL/min/1.73m^2) Est GFR (Non-Af Amer) >60 (>=60 mL/min/1.73m^2) BUN/Creatinine Ratio 15.5 Glucose 145 H (74-106) mg/dL Lactate 1.3 (0.4-2.0) mmol/L Calcium 8.7 (8.5-10.1) mg/dL Total Bilirubin 0.2 (0.2-1.0) mg/dL AST 29 (15-37) U/L ALT 74 H (14-59) U/L Alkaline Phosphatase 134 H (46-116) U/L Total Protein 7.4 (6.4-8.2) g/dL Albumin 3.8 (3.4-5.0) g/dL Globulin 3.6 g/dL Albumin/Globulin Ratio 1.1 Lipase 30.0 (16.0-77.0) U/L Salicylates <2.8 (<=19.9) mg/dL Acetaminophen <2.0 L (10.0-30.0) ug/mL Imaging Data CT scan - abdomen: Radiologist's impression: ITS Impressions Abdomen/Pelvis CT 12/09/24 21:52 IMPRESSION: Bilateral medullary nephrocalcinosis nonobstructing renal calculi. No hydronephrosis. 4 cm right ovarian cyst. No CT findings of acute pancreatitis. Impression dictated by: Homero Oakes M.D. 12/09/2024 10:56 PM Dictation Location: [facility] Electronically authenticated by: [id number] Y Date: 12/09/2024 22:56 Discharge Plan Discharge Chief Complaint: Abdominal Pain Clinical Impression: Gastritis Patient Disposition: Home, Self-Care Time of Disposition Decision: 23:11 Condition: Good Prescriptions / Home Meds: No Action albuterol sulfate 90 mcg/actuation HFA aerosol inhaler 2 inh INHALATION Q4H PRN (Reason: shortness of breath or wheezing) Vraylar 4.5 mg capsule 4.5 mg PO QPM epinephrine 0.3 mg/0.3 mL auto-injector 0.3 ml subcut Q4H PRN (Reason: anaphylaxis) dextroamphetamine-amphetamine 30 mg capsule,extended release 24hr 30 mg PO QDAY escitalopram oxalate 20 mg tablet 20 mg PO QDAY dextroamphetamine-amphetamine 10 mg capsule,extended release 24hr 10 mg PO DAILY montelukast 10 mg tablet 10 mg PO .QHS metoprolol succinate 25 mg tablet extended release 24 hr 25 mg PO DAILY Trelegy Ellipta 100-62.5-25 mcg blister with device 1 inh INHALATION DAILY albuterol sulfate 90 mcg/actuation HFA aerosol inhaler 2 puff INHALATION Q6H PRN (Reason: shortness of breath or wheezing) clomipramine 50 mg capsule 50 mg PO .QHS hydrocodone-acetaminophen 5-325 mg tablet 1 tab PO Q4H PRN (Reason: pain) Qty: 10 0RF bupropion HCl 300 mg tablet extended release 24 hr PO flexeral Print Language: Russian Instructions: Gastritis (ED) Referrals: GIOVANI HAGEN [Primary Care Provider, Family Practice] - 1 week
--- OUTSIDE RECORDS SUMMARY | 2024-12-09 21:57 | XMS_ITS | Encounter Summary ---
Author Organization [facility] Address [address] [facility] [place] [address] Care Team Providers Care Radiocommunications Technician Name Role Phone Emerald Sanchez MD Unavailable Emerald Sanchez MD Primary Care Provider [phone] Encounter Details Date Type Department Care Team (Late st Contact Info) Description 04/02/2024 Abstract [facility] [address] [facility] [address] [place] [id number] Emerald Sanchez MD [address] [place] [address] [place] [address] Social History Tobacco Use Types Packs/Day Years Used Date Smoking Tobacco: Former Smokeless Tobacco: Never Alcohol Use Standard Drinks/Week Comments Yes 2 (1 standard drink = 0.6 oz pur e alcohol) Humiliation, Afraid, Rape, and Kick questionnair e [...] the phone with family, friends, or neighbors? Three times a week 04/18/20 How often do you get togethe r with friends or relatives? Twice a week 04/18/2023 How often do you attend chur ch or zoroastrianism services? Never 04/18/2023 Do you belong to any clubs o r organizations such as sikh groups, unions, fraternal or athletic groups, or school groups? Yes 04/18/2023 How often do you attend meet ings of the clubs or organizations you belong to? 1 to 4 times per year 04/18/2023 Are you , , di vorced, , never , or living with a partner? 04/18/2023 AUDIT-C Answer Date Recorded Q1: How often do you have a drink containing alc ohol? 2-4 times a month 04/18/2023 Q2: How many drinks containi ng alcohol do you have on a typical day when you are drinking? 1 or 2 04/18/2023 Q3: How often do you have si x or more drinks on one occasion? Never 04/18/2023 Overall Financial Resource Strain (CARDIA) Answe r Date Recorded How hard is it for you to pa y for the very basics like food, housing, medical care, and heating? Not hard at all 04/18/2023 [facility] - Occupational Stress Questionnaire Answer Date Recorded Do you feel stress - tense, restless, nervous, or anxious, or unable to sleep at night because your mind is troubled all the time - these days? Very much 04/18/2023 Exercise Vital Sign Answer Date Recorde d On average, how many days pe r week do you engage in moderate to strenuous exercise (like a brisk walk)? 0 days 04/18/2023 On average, how many minutes do you engage in exercise at this level? 0 min 04/18/2023 Hunger Vital Sign Answer Date Recorded Within the past 12 months, y ou worried that your food would run out before you got the money to buy more. Never true 04/18/20 23 Within the past 12 months, t he food you bought just didn't last and you didn't have money to get more. Never true 04/18/2023 PRAPARE - Transportation Answer Date Re corded In the past 12 months, has l ack of transportation kept you from medical appointments or from getting medications? No 03/25 In the past 12 months, has l ack of transportation kept you from meetings, work, or from getting things needed for daily living? No 04/18/2023 Housing Stability Vital Sign Answer [...] place to sleep or slept in a residential (including now)? No 04/18/2023 Comments No Sex and Gender Information Value Date Recorded Sex Assigned at Not on file Legal Sex Female 7:29 PM EDT Gender Identity Not on file Sexual Orientation Not on file documented as of this encounter Plan of Treatment Upcoming Encounters Date Type Department Care Team (Late st Contact Info) Description 12/13/2024 9:40 AM EDT Office Visit [facility] [address] [place] [address] Milton Duvall, DPM [facility] [address] [place] [address] 12/26/2024 1:20 PM EDT Office Visit [facility] [address] [facility] [address] [place] [address] Jatin Cabrera MD [address] [facility] [address] [address] documented as of this encounter Goals Goal Patient Goal Type Associated Problems Recent Progress Patient-Stated? Author Help patient manage antidepressant medication Care Plan Patient on antidepressant monitoring plan Emerald Gaxiola MD Baseline PHQ-9 Care Plan Baseline PHQ-9 Emerald Gaxiola MD documented as of this encounter Visit Diagnoses Not on filedocumented in this encounter Additional Health Concerns Active Problems Noted Date Diagnosed Date Patient on antidepressant monitoring plan 2023 Baseline PHQ-9 05/08/2023 documented as of this encounter Care Teams Radiocommunications Technician Relationship Specialty Start Date End Date Emerald Sanchez MD [address] [place] [address] [place], [place] [id number] PCP - Medical [place] [employer] 10/22/18 04/23/99 Emerald Sanchez MD [address] [place] [address] [place] [address] PCP - General Family Medicine 08/30/22 documented as of this encounter
--- OUTSIDE RECORDS SUMMARY | 2024-12-09 21:57 | XMS_ITS | Encounter Summary ---
Author Organization [facility] Address [address] [place] [address] Care Team Providers Care [facility] Emergency Services Manager Name Role Phone Emerald Sanchez MD Unavailable Emerald Sanchez MD Primary Care Provider [phone] Encounter Details Date Type Department Care Team (Late st Contact Info) Description 04/11/2023 Orders Only [facility] [address] [facility] [address] [place] [address] A, Unknown Practice [address] [place], [place] [id number] Social History Tobacco Use Types Packs/Day Years Used Date Smoking Tobacco: Never Alcohol Use Standard Drinks/Week Comments Never 0 (1 standard drink = 0.6 oz pur e alcohol) Comments No Sex and Gender Information Value Date Recorded Sex Assigned at Not on file Legal Sex Female 7:29 PM EDT Gender Identity Not on file Sexual Orientation Not on file documented as of this encounter Plan of Treatment Upcoming Encounters Date Type Department Care Team (Late st Contact Info) Description 12/13/2024 9:40 AM EDT Office Visit [facility] [address] [place] [address] Milton Duvall, DPM [facility] [address] [facility] [place] [address] 12/26/2024 1:20 PM EDT Office Visit [facility] [address] [place] [address] [place] [address] Jatin Cabrera MD [address] [place] [address] [place] [address] documented as of this encounter Procedures Procedure Name Priority Date/Time Associated Diagnosis Comments SCANNED LABS Routine 04/11/2023 1:27 PM EST documented in this encounter Results * SCANNED LABS (04/11/2023 1:27 PM EST) us Unknown Practice A LAB CHG PERFORMABLES Final Re sult documented in this encounter Visit Diagnoses Not on filedocumented in this encounter Care Teams [employer] Emergency Services Manager Relationship Specialty Start Date End Date Emerald Sanchez MD [address] [facility] [address] [place] [address] PCP - Medical [place] [employer] 10/22/18 04/23/99 Emerald Sanchez MD [address] [facility] [address] [place], [place] [id number] PCP - General Family Medicine 08/30/22 documented as of this encounter
--- OUTSIDE RECORDS SUMMARY | 2024-12-09 21:57 | XMS_ITS | Encounter Summary ---
Author Organization [facility] Address [address] [facility] [place] [address] Care Team Providers Care Health Information Director Name Role Phone Emerald Sanchez MD Unavailable Emerald Sanchez MD Primary Care Provider Encounter Details Date Type Department Care Team (Late st Contact Info) Description 05/02/2024 Abstract [facility] [place] [facility] [address] [facility] 110 [place] [phone] Emerald Sanchez MD [address] [place] [address] [place] [address] Social History Tobacco Use Types Packs/Day Years [...] often do you attend chur ch or scientology services? Never 04/18/2023 Do you belong to any clubs o r organizations such as caodaism groups, unions, fraternal or athletic groups, or [...] and heating? Not hard at all 04/18/2023 [facility] - [...] place to sleep or slept in a assisted (including now)? No 04/18/2023 Comments No Sex [...] EDT Office Visit [facility] [address] [place] [address] Milton Duvall, DPM FACFAS [address] [place] [address] 12/26/2024 1:20 PM EDT Office Visit [facility] [address] [facility] [address] [place] [address] Jatin Cabrera MD 9676 [facility] [address] [address] documented as of this encounter Goals Goal [...] documented as of this encounter Care Teams Health Information Director Relationship Specialty Start Date End Date Emerald Sanchez MD [address] [place] [address] [place], [place] [id number] PCP - Medical [place] [employer] 10/22/18 04/23/99 Emerald Sanchez MD [address] [place] [address] [place] [address] PCP - General Family Medicine 08/30/22 documented as of this encounter
--- OUTSIDE RECORDS SUMMARY | 2024-12-09 21:57 | XMS_ITS | Encounter Summary ---
Author Organization [facility] Address [address] [facility] [place] [address] Care Team Providers Care Converter Supervisor Name Role Phone Emerald Sanchez MD Unavailable Emerald Sanchez MD Primary Care Provider [phone] Encounter Details Date Type Department Care Team (Late st Contact Info) Description 09/02/2024 Abstract [facility] [place] [facility] [address] [facility] 110 [place] [phone] Emerald Sanchez MD [address] [place] [address] [place] [address] Social History Tobacco Use Types Packs/Day Years [...] week 05/09/2024 How often do you attend christianity or pentecostalism serv ices? Never 05/09/2024 Do you belong to any clubs o r organizations such as christianity groups, unions, fraternal or athletic groups, or [...] Answer Date Recorded Patient Health Questionnaire-2 Score 0 09/02/2024 [facility] - Occupational Stress [...] place to sleep or slept in a chcf (including now)? No 04/18/2023 Housing Stability Vital Sign Answer Celso e Recorded In the last 12 months, was t here a time when you were not able to pay the mortgage or rent on time? No 05/09/2024 In the past 12 months, how m any times have you moved where you were living? 0 05/09/2024 At any time in the past 12 m [facility], were you homeless or living in a chcf (including now)? No 05/09/2024 Comments No Sex and Gender Information Value Date Recorded Sex Assigned at Not on file Legal Sex Female 7:29 PM EDT Gender Identity Not on file Sexual Orientation Not on file documented as of this encounter Functional Status * Over the past 2 weeks, how often have you been bothered by any of the following problems? Question Answer Date of Assessment Author Little interest or pleasure in doing things Not at all 09/02/2024 7:09 AM EDT Monet Motley MA Feeling down, depressed, or hopeless Not at all 09/02/2024 7:09 AM EDT Monet Motley MA Patient Health Questionnaire -2 Score 0 09/02/2024 7:09 AM EDT Monet Motley MA documented as of this encounter Plan of Treatment Upcoming Encounters Date Type Department Care Team (Late st Contact Info) Description 12/13/2024 9:40 AM EDT Office Visit [facility] [address] [place] [address] Milton Duvall, DPM FACFAS [address] [facility] [place] [address] 12/26/2024 1:20 PM EDT Office Visit [facility] [address] [facility] [address] [place] [address] Jatin Cabrera MD [address] Jose Alejandro [address] [address] documented as of this encounter [...] documented as of this encounter Care Teams Converter Supervisor Relationship Specialty Start Date End Date Emerald Sanchez MD 112 [facility] 110 [place] [address] PCP - Medical [place] [employer] 10/22/18 04/23/99 Emerald Sanchez MD 112 [facility] 110 [place] [address] PCP - General Family Medicine 08/30/22 documented as of this encounter
--- OUTSIDE RECORDS SUMMARY | 2024-12-09 21:57 | XMS_ITS | Encounter Summary ---
Author Organization [facility] Address [address] [facility] [place] [address] Care Team Providers Care Ultrasound Coordinator Name Role Phone Emerald Sanchez MD Unavailable Emerald Sanchez MD Primary Care Provider [phone] Encounter Details Date Type Department Care Team (Late st Contact Info) Description 03/22/2023 Abstract [facility] [place] [facility] [address] [facility] 110 [place] [address] Emerald Sanchez MD [address] [facility] 110 [place] [address] Social History Tobacco Use Types Packs/Day Years [...] EDT Office Visit [facility] [address] [place] [address] Milton Duvall, DPM FACFAS 368 [facility] [place], [place] [phone] 12/26/2024 1:20 PM EDT Office Visit [facility] [address] [place] [address] [place] [address] Jatin Cabrera MD 2315 [facility] [address] [address] documented as of this encounter Visit Diagnoses Not on filedocumented in this encounter Care Teams Ultrasound Coordinator Relationship Specialty Start Date End Date Emerald Sanchez MD [address] [place] [address] [address] PCP - Medical [place] [employer] 10/22/18 04/23/99 Emerald Sanchez MD [address] [address] [address] PCP - General Family Medicine 08/30/22 documented as of this encounter
--- OUTSIDE RECORDS SUMMARY | 2024-12-09 21:57 | XMS_ITS | Encounter Summary ---
Author Organization [facility] Address [address] [facility] [place] [address] Care Team Providers Care Job Printer Apprentice Name Role Phone Emerald Sanchez MD Unavailable Emerald Sanchez MD Primary Care Provider Encounter Details Date Type Department Care Team (Latest Contact Info) Description 12/09/2024 Travel Social History Tobacco Use Types Packs/Day Years [...] week 05/09/2024 How often do you attend adventist or mandaen serv ices? Never 05/09/2024 Do you belong to any clubs o r organizations such as adventist groups, unions, fraternal or athletic groups, or [...] Recorded Patient Health Questionnaire-2 Score 4 10/08/2024 [facility] Occupat ional Health - Occupational [...] place to sleep or slept in a nursing home (including now)? No 04/18/2023 Housing Stability Vital Sign Answer Celso e Recorded In the last 12 months, was t here a time when you were not able to pay the mortgage or rent on time? No 05/09/2024 In the past 12 months, how m any times have you moved where you were living? 0 05/09/2024 At any time in the past 12 m [facility], were you homeless or living in a nursing home (including now)? No 05/09/2024 Comments No Sex [...] EDT Office Visit [facility] [address] [place] [address] Milton Duvall, DPM FACFAS [address] [place] [address] 12/26/2024 1:20 PM EDT Office Visit [facility] [address] [facility] 310 [place] [address] Jatin Cabrera MD [address] [facility] [address] [place] [address] [place] [address] documented as of this encounter Goals [...] Noted Time PHQ-9 Depression Total Score: 18 025 11:34 AM EDT documented as of this encounter Care Teams Job Printer Apprentice Relationship Specialty Start Date End Date Emerald Sanchez MD [address] [place] [address] [place] [address] PCP - Medical [place] [employer] 10/22/18 04/23/99 Emerald Sanchez MD [address] [place] [address] [place] [address] PCP - General Family Medicine 08/30/22 documented as of this encounter
--- OUTSIDE RECORDS SUMMARY | 2024-12-09 21:57 | XMS_ITS | Encounter Summary ---
Author Organization [facility] Address [address] [facility] [place] [address] Care Team Providers Care Manager Corporate Strategy Name Role Phone Emerald Sanchez MD Unavailable Emerald Sanchez MD Primary Care Provider [phone] Encounter Details Date Type Department Care Team (Late st Contact Info) Description 08/20/2024 Abstract [facility] [place] [facility] [address] [facility] 110 [place] [address] Emerald Sanchez MD [address] [place] [address] [place] [address] Social History Tobacco Use Types Packs/Day Years [...] week 05/09/2024 How often do you attend rastafari or lutheran serv ices? Never 05/09/2024 Do you belong to any clubs o r organizations such as rastafari groups, unions, fraternal or athletic groups, or [...] Date Recorded Patient Health Questionnaire-2 Score 0 08/01/2024 [facility] Occupat ional Health - Occupational [...] place to sleep or slept in a intermediate (including now)? No 04/18/2023 Housing Stability Vital Sign Answer Celso e Recorded In the last 12 months, was t here a time when you were not able to pay the mortgage or rent on time? No 05/09/2024 In the past 12 months, how m any times have you moved where you were living? 0 05/09/2024 At any time in the past 12 m [facility], were you homeless or living in a intermediate (including now)? No 05/09/2024 Comments No Sex [...] EDT Office Visit [facility] [address] [facility] [place] [address] Milton Duvall, DPM FACFAS [address] [facility] [place] [address] 12/26/2024 1:20 PM EDT Office Visit [facility] [address] [place] [address] [place] [address] Jatin Cabrera MD 5349 [facility] [address] [id number] documented as of this encounter Goals Goal [...] documented as of this encounter Care Teams Manager Corporate Strategy Relationship Specialty Start Date End Date Emerald Sanchez MD [address] [facility] 110 [place] [address] PCP - Medical [place] [employer] 10/22/18 04/23/99 Emerald Sanchez MD [address] [facility] 110 [place] [address] PCP - General Family Medicine 08/30/22 documented as of this encounter
--- OUTSIDE RECORDS SUMMARY | 2024-12-09 21:57 | XMS_ITS | Patient Health Record ---
Author Organization [facility] Address [address] [place] [address] Care Team Providers Care Submarine Cable Equipment Technician Name Role Phone Emerald Sanchez MD Primary Care Provider Bernardo Busch Unavailable [phone] Allergies No Known Allergies Results Component Value Reference Range Notes LIVER PROFILE Reviewed date:08/16/2024 08:58:07 AM Interpretation: Performing Lab: Notes/Report: [facility] , Bilirubin Total 0.4 0.2-1.0 mg/dL Bilirubin Direct 0.1 0.0-0.2 mg/dL Aspartate Amino Transferase 33 15-37 U/L Alanine Aminotransferase 68 14-59 U/L Alkaline Phosphatase 105 46-116 U/L Total Protein 6.4 6.4-8.2 g/dL Albumin Level 3.2 3.4-5.0 g/dL Globulin 3.2 Albumin Globulin Ratio 1.0 Performing Lab: see note ML - The [facility] LB LIVER PROFILE Reviewed date:08/15/2024 07:01:06 PM Interpretation: Performing Lab: Notes/Report: Comment from this am blood [facility] , Bilirubin Total 0.3 0.2-1.0 mg/dL Bilirubin Direct 0.1 0.0-0.2 mg/dL Aspartate Amino Transferase 46 15-37 U/L Alanine Aminotransferase 89 14-59 U/L Alkaline Phosphatase 111 46-116 U/L Total Protein 6.7 6.4-8.2 g/dL Albumin Level 3.5 3.4-5.0 g/dL Globulin 3.2 Albumin Globulin Ratio 1.1 Performing Lab: see note ML - The [facility] Reason For Referral No Information Medications Medication SIG (Take, Route, Frequency, Duration) Notes Start Date End Date Status Vraylar 4.5 MG 1 capsule Orally Onc e a day 03/27/2024 Active Xanax 0.5 MG 1 tablet Orally Twic e a day 03/27/2024 Active Albuterol Active Escitalopram Oxalate 20 MG 1 tablet Oral ly Once a day 03/27/2024 Active Social History Tobacco Use: Social History Observation Description Date Details (start date - stop date) Former Smoker NA - NA Tobacco Control (Standard) Question Answer Notes Tobacco use: Former smoker Problems Problem Type SNOMED Code ICD Code Onset Dates Problem Status W/U Status Risk Notes Problem Hypertension (30451756) HTN (hypertension) (I10) Active confirmed Problem Alcohol withdrawal delirium (7049875) Alcoholic intoxication, with delirium (F10.121) Active confirmed Problem Altered mental status associated with intoxication (F10.959) Active confirmed Vital Signs Heart Rate 105 /min 03/27/2024 Temperature 98.1 degrees Fahrenheit 03/27/2024 Oximetry 99 % 03/27/2024 Height 62 in 03/27/2024 Weight 191 lbs 03/27/2024 BMI 34.93 kg/m2 03/27/2024 Encounters Encounter Location Date Provider Diagnosis THE [address] [address] 04/15/2024 Bernardo Duong [facility] (PODIATRY) [address] [place] [address] 04/19/2024 [facility] [employer] (POD[facility]ATRY) [address] [place] [address] 03/27/2024 Bernardo Duong Sprain of other ligament of right ankle, sequela S93.491S ; Other instability, right ankle M25.371 ; Strain of muscle(s) and tendon(s) of peroneal muscle group at lower leg level, right leg, initial encounter S86.311A ; Other specified acquired deformities of musculoskeletal system M95.8 ; Sprain of deltoid ligament of right ankle, subsequent encounter S93.421D and Effusion, right ankle M25.471 Assessments Encounter Date Diagnosis (ICD Code) Assessment Notes Treatment Notes Treatment Clinical Notes Section Notes 03/27/2024 Sprain of other ligament of right ankle, sequela (ICD-10 - S93.491S) Patient was seen and evaluated. Patient's condition was provided and all questions were answered to satisfaction. I reviewed x-rays, MRI and physical exam findings. Initial injury was 01/10/2024 and she was initially treated with immobilization, RICE therapy, and 4 weeks of physical therapy. 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 Her pain and dysfunction are affecting activities of daily living and recreation. I educated her on potential risks and benefits of surgical intervention. Patient would like to undergo reconstructive surgery and I recommended: Right ankle arthroscopy, lateral ankle stabilization and peroneal tendon repair I reviewed the possible complications which include but not limited to infection, wound healing issue, numbness and tingling, bleeding, blood clot, pain, need for additional surgery. Postoperative course was reviewed and the patient will likely be: Nonweightbearing for 1 to 3 weeks Patient will be: outpatient postoperatively Proposed anesthesia: General And regional Proposed implants: Medline suture anchors 03/27/2024 Other instability, right ankle (ICD-10 - M25.371) 03/27/2024 Strain of muscle(s) and tendon(s) of peroneal muscle group at lower leg level, right leg, initial encounter (ICD-10 - S86.311A) 03/27/2024 Other specified acquired deformities of musculoskeletal system (ICD-10 - M95.8) 03/27/2024 Sprain of deltoid ligament of right ankle, subsequent encounter (ICD-10 - S93.421D) 03/27/2024 Effusion, right ankle (ICD-10 - M25.471) 03/27/2024 Other Patient did rec eive a prescription from [facility] from Dr. Sanchez her PCP. I notified Dr. Sanchez of the plan and told patient if she needs any further perioperative pain management that I would manage. 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 She may continue working her full-time job from home Plan Of Treatment No Information Insurance Providers Payer Name Payer Address Payer Phone Subscriber Number Group Number Insured Name Patient Relationship to Insured Coverage Start Date Coverage End Date [facility] [address] [place], [place] [id number] [phone] [id number] Belgica Barnett Self - patient is the insured Medical (General) History Medical History History ICD Code asthma liver disease tuberculosis Surgical History Surgery Date(Month/Year) gall bladder removal c section x 3
--- OUTSIDE RECORDS SUMMARY | 2024-12-09 21:57 | XMS_ITS | Encounter Summary ---
Author Organization [facility] Address [address] [place] [address] Care Team Providers Care Clinical Sales Consultant Name Role Phone Emerald Sanchez MD Primary Care Provider [phone] Deena Osorio FOREST PRODUCTS GATHERER Unavailable [phone] Darwin Starr DO Unavailable [phone] Source Comments In the event this information is protected by the Federal Confidentiality of Alcohol and Drug AbusePatient Records regulations: The Federal rules restrict any use of the information to criminally investigate or prosecute any alcohol or drug abuse patient.[facility] Reason for Referral * Diagnostic Procedure Only (Routine) - Closed Specialty Diagnoses / Procedures Referred By Contac t Referred To Contact US IMAGING Diagnoses Elevated LFTs Procedures US ABD RT UPPER QUADRANT US ABDOMINAL REAL [place] W/[place] [address] [place] [address] Phone: tel: fax: [place] [phone] Referral ID Status Reason Start Date Expiration Date V isits Requested Visits Authorized [id number] Closed Auto-Generate d Referral 11/24/2021 12/24/2022 1 1 Encounter Details Date Type Department Care Team (Late st Contact Info) Description 11/23/2021 Get Medical Advice Gastroenterology [address] [place] [address] Provider, Ccf Ast and Alt high Social History Tobacco Use Types Packs/Day Years Used Date Smoking Tobacco: Never Smokeless Tobacco: Never Alcohol Use Standard Drinks/Week Comments Yes 0 (1 standard drink = 0.6 oz pur e alcohol) socially Area Deprivation Index Answer Date Jose rded National Score (1-100), lower number is lower ri sk Not on file 04/02/2020 State Score (1-10), lower number is lower risk N ot on file 04/02/2020 Data from: https://www.neighborhoodatlas.medicine.[facility].edu/. Last address used for calculation Not on file 04/02/2020 Comments No Sex and Gender Information Value Date Recorded Sex Assigned at Not on file Legal Sex Female 9:05 PM EDT Gender Identity Female 06/08/2021 8:30 AM EST Sexual Orientation Not on file COVID-19 Exposure Response Date Recorded In the last 10 days, have yo u been in contact with someone who was confirmed or suspected to have Coronavirus/COVID-19? No / Unsure 11/26/2021 9:04 AM EDT documented as of this encounter Miscellaneous Notes * Telephone Encounter - Grayson Peter MD - 11/24/2021 12:41 PM EDT Will start with US Further work pending the US * Telephone Encounter - Wilma Murray RN - 11/24/2021 12:25 PM EDT Pt has not had RUQ US. Pended order * Telephone Encounter - Grayson Peter MD - 11/24/2021 9:11 AM EDT She needs US if no recent one We can order studies to rule out underlying liver disease after the US is done * Telephone Encounter - Wilma Murray RN - 11/23/2021 12:24 PM EDT AST 69 ALT 71 Bili <0.3 documented in this encounter Plan of Treatment Upcoming Encounters Date Type Department Care Team (Late st Contact Info) Description 12/30/2024 9:00 AM EDT Office Visit Gynecology [address] [place] [address] Emma Ying, BASSAM.SMALL ANIMAL CARETAKER [address] [place] [address] Other specified dyspareunia documented as of this encounter Results * US ABD RT UPPER QUADRANT (12/10/2021 2:33 PM EDT) Anatomical Region Laterality Modality Abdomen Ultrasound 12/10/2021 2:33 PM EDT Impressions 12/10/2021 2:47 PM EDT IMPRESSION: 1. Hepatic steatosis and a liver cyst. There are no gallstones or biliary dilatation. Test Puller: MINAL Transcribe Date/Time: Dec 10 2021 2:42P Dictated by : CANDIDA COYLE MD This examination was interpreted and the report reviewed and electronically signed by: CANDIDA COYLE MD on Dec 10 2021 2:44PM EST Narrative 12/10/2021 2:47 PM EDT * * *Final Report* * * DATE OF EXAM: Dec 10 2021 2:33PM [facility] 1032 - US ABD RIGHT UPPER QUADRANT / PROCEDURE REASON: Elevated LFTs * * * * Physician Interpretation * * * * EXAMINATION: RIGHT UPPER QUADRANT ULTRASOUND CLINICAL HISTORY: Elevated liver function tests TECHNIQUE: Sonography of the right upper quadrant was performed. Images were obtained and stored in a permanent archive. MQ: URUQ_2 COMPARISON: None. RESULT: Pancreas: Normal sonographic appearance. Portions obscured: tail Liver: Echotexture: Coarse Echogenicity: Increased Surface contour: Smooth Lesions: There is a 1.5 x 1.7 x 2.1 cm cyst in the right lobe. Biliary: No intrahepatic biliary duct dilation. CBD: 0.6 cm at the hilum. Gallbladder: Normal caliber -Contents: No cholelithiasis -Wall: Normal -Other: No pericholecystic fluid. Right and left Kidney: No hydronephrosis. Ascites: None. Other: The spleen measures 9.8 cm in cephalocaudal dimension. This is normal in size. There are no focal lesions identified. Procedure Note Provider, [facility] [place] - 12/10/2021 * * *Final Report* * * DATE OF EXAM: Dec 10 2021 2:33PM [facility] 1032 - US ABD RIGHT UPPER QUADRANT / PROCEDURE REASON: Elevated LFTs * * * * Physician Interpretation * * * * EXAMINATION: RIGHT UPPER QUADRANT ULTRASOUND CLINICAL HISTORY: Elevated liver function tests TECHNIQUE: Sonography of the right upper quadrant was performed. Images were obtained and stored in a permanent archive. MQ: URUQ_2 COMPARISON: None. RESULT: Pancreas: Normal sonographic appearance. Portions obscured: tail Liver: Echotexture: Coarse Echogenicity: Increased Surface contour: Smooth Lesions: There is a 1.5 x 1.7 x 2.1 cm cyst in the right lobe. Biliary: No intrahepatic biliary duct dilation. CBD: 0.6 cm at the hilum. Gallbladder: Normal caliber -Contents: No cholelithiasis -Wall: Normal -Other: No pericholecystic fluid. Right and left Kidney: No hydronephrosis. Ascites: None. Other: The spleen measures 9.8 cm in cephalocaudal dimension. This is normal in size. There are no focal lesions identified. IMPRESSION IMPRESSION: 1. Hepatic steatosis and a liver cyst. There are no gallstones or biliary dilatation. Test Puller: MINAL Transcribe Date/Time: Dec 10 2021 2:42P Dictated by : CANDIDA COYLE MD This examination was interpreted and the report reviewed and electronically signed by: CANDIDA COYLE MD on Dec 10 2021 2:44PM EST us [place] Dakhil MD US-PAMA Final Result documented in this encounter Visit Diagnoses Diagnosis Elevated LFTs- Primary Other abnormal blood chemistry Elevated LFTs Other abnormal blood chemistry documented in this encounter Additional Health Concerns Infection Onset Date Last Indicated Resolved Time C. difficile 05/22/2024 05/22/2024 06/21/2024 8:51 PM EST documented as of this encounter Care Teams Clinical Sales Consultant Relationship Specialty Start Date End Date Emerald Sanchez MD [address] [facility] [address] [place] [address] PCP - General Family Medicine 03/27/19 Deena Osorio, FOR[employer]ODU[employer] GATHERER [address] [facility] [address] [place], [place] [id number] Referring Family Medicine 04/03/24 Darwin Starr DO [address] [place], [place] [address] [address] Referring Supervisor [employer] 07/02/24 documented as of this encounter
--- OUTSIDE RECORDS SUMMARY | 2024-12-09 21:57 | XMS_ITS | Clinical Summary ---
Author Organization [facility] Address [address] [place] [address] Care Team Providers Care Section Crews Activities Clerk Name Role Phone Emerald Sanchez MD Primary Care Provider [phone] Deena Osorio UPHOLSTERY COVERS INSPECTOR Unavailable [phone] Darwin Starr DO Unavailable [phone] Allergies Active Allergy Reactions Criticality Noted Date Comments Cat Dander Anaphylaxis 07/10/2024 Iodinated Contrast Media Anaphylaxis,Hives,It [place] 04/12/2019 Iodine Swelling,Itching 04/11/2019 Omnipaque 300: Patient experienced itching on her neck and left side of her face. Also, pt complained of tongue feeling itchy and feels like something is stuck in her throat . Patient received diphenhydramine (Benadryl) Iohexol Itching 04/12/2019 Tree Nuts Anaphylaxis 07/10/2024 Medications ALPRAZolam (XANAX) 0.5 mg tablet Take 0.25 mg by mouth two times a day. 0 02/18/2019 Active cariprazine (VRAYLAR) 4.5 mg capsule Take 4.5 mg by mouth once daily. Active amphetamine-dext roamphetamine XR (ADDERALL XR) 30 mg capsule Take 30 mg by mouth once daily. Active escitalopram oxalate (LEXAPRO) 20 mg tablet Take 20 mg by mouth every morning. Active montelukast (SINGULAIR) 10 mg tablet Take 10 mg by mouth daily at bedtime. Active fluticasone/umec lidin/vilanter (TRELEGY ELLIPTA INHALATION) Inhale as instructed. Active metoprolol succinate ER (TOPROL XL) 25 mg 24 hr tabletIndication s:Palpitation Take 1 tablet by mouth once daily. 30 tablet 2 08/13/2024 Active Active Problems Problem Noted Date Diagnosed Date Pelvic floor dysfunction 10/11/2024 Chronic constipation 10/11/2024 Muscle spasm 10/11/2024 Gastroparesis 11/02/2022 Encounters Date Type Department Care Team Description 11/08/2024 Patient Msg HOSP MAIN H[address] [place] [address] Provider, Ccf Sign up to manage your digestive symptoms in between visits, covered by insurance 10/23/2024 12:28 PM EDT - 10/23/2024 11:59 PM EDT Hospital Encounter Radiology [address] [place] [address] [place] [address] Pelvic floor dysfunction [M62.89] Discharge Disposition: Home 10/21/2024 10:51 AM EDT - 10/21/2024 11:59 PM EDT Hospital Encounter [facility] Radiology General [address] [place] [address] Pelvic floor dysfunction [M62.89] Discharge Disposition: Home 10/15/2024 10:30 AM EDT Procedure Colorectal Surgery [address] [place] [address] Lesly Barnett APRN.CNP 10/11/2024 2:45 PM EDT OT/PT/Speech Visit [facility] [address] [place] [address] Lydia Rock, PT, DPT Muscle spasm (Primary Dx); Pelvic floor dysfunction; Chronic constipation 10/11/2024 Plan of Care Documentation [facility] [address] [place] [address] 10/09/2024 1:00 PM EDT Office Visit Colorectal Surgery [address] [place] [address] Lesly Barnett APRN.CNP Pelvic floor dysfunction (Primary Dx); Chronic constipation; Gastroparesis 10/09/2024 Travel 10/07/2024 Abstract Gynecology [address] [place] [address] Emma Ying APRN.FORM PRESSER Abstract (CPP - NPAF abstract/) 10/03/2024 Travel 10/01/2024 Telephone Gastroenterology [address] [place] [address] Grayson Peter MD 09/27/2024 Patient Msg [facility] [address] [place] [address] Provider, Ccf CPP CONSULT from Last 3 Months Family History Medical History Relation Comments heart murmur Brother murmur Maternal Aunt Colon Cancer Maternal Grandfather started in the kidney Relation Status Comments Brother Maternal Aunt Alive Maternal Grandfather Social History Tobacco Use Types Packs/Day Years Used Date Smoking Tobacco: Never Smokeless Tobacco: Never Tobacco Cessation:Counseling Given: Not Answered Alcohol Use Standard Drinks/Week Comments Yes 4 (1 standard drink = 0.6 oz pur e alcohol) socially PHQ-2 Answer Date Recorded PHQ-2 score 2 04/24/2024 Area Deprivation Index Answer Date Jose rded National Score (1-100), lower number is lower ri sk 65 10/17/2022 State Score (1-10), lower number is lower risk 4 10/17/2022 Data from: https://www.neighborhoodatlas.medicine.[facility].edu/. Last address used for calculation [address] 10/17/2022 Comments No Sex and Gender Information Value Date Recorded Sex Assigned at Not on file Legal Sex Female 9:05 PM EDT Gender Identity Female 06/08/2021 8:30 AM EST Sexual Orientation Not on file Last Filed Vital Signs Vital Sign Reading Time Taken Comments Blood Pressure 112/76 10/09/2024 1:00 PM EDT Pulse 106 10/09/2024 1:00 PM EDT Temperature 36.3 C (97.4 F) 10/17/2022 9:55 AM EDT Respiratory Rate 21 05/22/2024 2:30 PM EST Oxygen Saturation 99% 10/09/2024 1:00 PM EDT Inhaled Oxygen Concentration - - Weight 86.6 kg (191 lb) 10/09/2024 1:00 PM EDT Height 160 cm (5' 3 ) 08/13/2024 2:57 PM EDT Body Mass Index 33.83 08/13/2024 2:57 PM EDT Plan of Treatment Upcoming Encounters Date Type Department Care Team (Late st Contact Info) Description 12/30/2024 9:00 AM EDT Office Visit Gynecology [address] [place] [address] Emma Ying, UPHOLSTERY COVERS INSPECTOR.FORM PRESSER [address] [place] [address] Other specified dyspareunia Health Maintenance Due Date Last Done Comments Anxiety Screening 2006 Depression Screening 2006 HIV Screening 2006 HPV Vaccine (2 - 3-dose series) 11/30/2006 Cervical Cancer Screening 2009 Influenza Vaccine (#1) 2024 , 03/16/2020, 01/08/2018, Additional history exists DTaP,Tdap,Td Vaccine (7 - Td or Tdap) 09/06/2034 09/06/2024, 02/05/2010, 12/28/1993, Additional history exists Hepatitis B Vaccine Completed 01/05/2007, 11/02/2006, 02/20/1998 Hepatitis C Screening Completed 04/26/2024 Goals Goal Patient Goal Type Associated Problems Recent Progress Patient-Stated? Author Blood Pressure < 140/90 Blood Pressure 112/76( 025 1:00 PM EDT) Solo Silverman MD Procedures Procedure Name Priority Date/Time Associated Diagnosis Comments XR ABDOMEN 1V SUPINE Routine 10/23/2024 1:13 PM EDT Pelvic floor dysfunction Chronic constipation XR ABDOMEN 1V SUPINE Routine 10/21/2024 11:17 AM EDT Pelvic floor dysfunction Chronic constipation ADULT [place] ANORECTAL MANOMETRY Routine 10/15/2024 Pelvic floor dysfunction Chronic constipation PT ED PATIENT INFORMATION 10/03/2024 HEPATITIS C ANTIBODY IA WITH CONFIRMATION Routine 04/26/2024 3:01 PM EST Elevated LFTs BRBPR (bright red blood per rectum) from Last 3 Months or Most Recently Relevant to Health Maintenance Results * XR ABDOMEN 1V SUPINE (10/23/2024 1:13 PM EDT) Anatomical Region Laterality Modality Abdomen Other 10/23/2024 1:13 PM EDT Impressions 10/23/2024 3:17 PM EDT IMPRESSION: 0 Sitzmarks markers. The previously noted Sitzmarks markers have all resolved. Transcribe Date/Time: Oct 23 2024 3:10P Dictated by: XAVIER KNOX MD This examination was interpreted and the report reviewed and electronically signed by: XAVIER KNOX MD on Oct 23 2024 3:15PM EST Thank you for allowing us to participate in the care of your patient. Should there be any questions regarding this interpretation, please call [phone]. If you are unable to reach us at the number above, please feel free to contact [facility] at [phone]. Narrative 10/23/2024 3:17 PM EDT * * *Final Report* * * DATE OF EXAM: Oct 23 2024 1:13PM [id number] - XR ABDOMEN 1V SUPINE / PROCEDURE REASON: multiple diagnoses * * * * Physician Interpretation * * * * RESULT: HISTORY: Pelvic floor dysfunction, chronic constipation, Sitzmarks markers study, capsule swallowed on 10/20 TECHNIQUE: 2 views of the abdomen and pelvis. COMPARISON: 10/21/24. RESULT: No evidence of bowel obstruction. Stool is noted in the right colon. No radiopaque markers are noted in the [id number]. Procedure Note Provider, [facility] [place] - 10/23/2024 * * *Final Report* * * DATE OF EXAM: Oct 23 2024 1:13PM [id number] - XR ABDOMEN 1V SUPINE / PROCEDURE REASON: multiple diagnoses * * * * Physician Interpretation * * * * RESULT: HISTORY: Pelvic floor dysfunction, chronic constipation, Sitzmarks markers study, capsule swallowed on 10/20 TECHNIQUE: 2 views of the abdomen and pelvis. COMPARISON: 10/21/24. RESULT: No evidence of bowel obstruction. Stool is noted in the right colon. No radiopaque markers are noted in the [id number]. IMPRESSION IMPRESSION: 0 Sitzmarks markers. The previously noted Sitzmarks markers have all resolved. Transcribe Date/Time: Oct 23 2024 3:10P Dictated by: XAVIER KNOX MD This examination was interpreted and the report reviewed and electronically signed by: XAVIER KNOX MD on Oct 23 2024 3:15PM EST Thank you for allowing us to participate in the care of your patient. Should there be any questions regarding this interpretation, please call [phone]. If you are unable to reach us at the number above, please feel free to contact [facility] at [phone]. us Lesly Barnett APRN.ISABEL LANIER-PAMEleuterio Final Result * XR ABDOMEN 1V SUPINE (10/21/2024 11:17 AM EDT) Anatomical Region Laterality Modality Abdomen Other 10/21/2024 11:1 7 AM EDT Impressions 10/28/2024 9:10 AM EDT IMPRESSION: Sitzmarks markers as described. Legal Consultant: MINAL Transcribe Date/Time: Oct 28 2024 9:07A Dictated by : MARCELA STILL MD This examination was interpreted and the report reviewed and electronically signed by: MARCELA STILL MD on Oct 28 2024 9:08AM EST Narrative 10/28/2024 9:10 AM EDT * * *Final Report* * * DATE OF EXAM: Oct 21 2024 11:17AM [id number] - XR ABDOMEN 1V SUPINE / PROCEDURE REASON: multiple diagnoses * * * * Physician Interpretation * * * * ABDOMINAL RADIOGRAPHS HISTORY: Pelvic floor dysfunction Chronic constipation . TECHNIQUE: 3 view(s) of the abdomen were obtained. COMPARISON: Previous image dated 07/10/2024 and subsequent image performed on 10/23/2024. RESULT: No dilated small bowel loops. Moderate retained stool within the RIGHT colon. Multiple Sitzmarks markers, predominantly located within the ascending RIGHT colon, splenic flexure, and rectosigmoid region. Subsequent plain film imaging performed on 10/23/2024 demonstrates complete passage of Sitzmarks markers. Procedure Note Provider, [facility] [place] - 07/07/2025 * * *Final Report* * * DATE OF EXAM: Oct 21 2024 11:17AM [id number] - XR ABDOMEN 1V SUPINE / PROCEDURE REASON: multiple diagnoses * * * * Physician Interpretation * * * * ABDOMINAL RADIOGRAPHS HISTORY: Pelvic floor dysfunction Chronic constipation . TECHNIQUE: 3 view(s) of the abdomen were obtained. COMPARISON: Previous image dated 07/10/2024 and subsequent image performed on 10/23/2024. RESULT: No dilated small bowel loops. Moderate retained stool within the RIGHT colon. Multiple Sitzmarks markers, predominantly located within the ascending RIGHT colon, splenic flexure, and rectosigmoid region. Subsequent plain film imaging performed on 10/23/2024 demonstrates complete passage of Sitzmarks markers. IMPRESSION IMPRESSION: Sitzmarks markers as described. Legal Consultant: MINAL Transcribe Date/Time: Oct 28 2024 9:07A Dictated by : MARCELA STILL MD This examination was interpreted and the report reviewed and electronically signed by: MARCELA STILL MD on Oct 28 2024 9:08AM EST us Lesly Barnett APRN.FORM PRESSER RAD-PAMA Final Result * ADULT [place] ANORECTAL MANOMETRY (10/15/2024) Anatomical Region Laterality Modality Other Narrative 10/15/2024 Reason for testing: constipation, incomplete defecation, and pelvic pain Ileoanal pouch: No Anorectal Manometry Testing: Strength: Anorectal manometry was performed. Average Pressure Interpretation Rest: 72.7 mmHg This is above normal range. Normal range is 35-50 mmHg. Squeeze: 76.0 mmHg This is within normal range. Normal range is 75 - 100 mmHg. Resting and squeeze pressures well above normal may indicate high pelvic floor tension. There is minimal incremental change between resting and squeeze pressures which can indicate poor pelvic floor movement with squeeze. Sensory: Sensation Volume First sensation : 100 mL / Normal Range: 40-80 mL First urge to defecate: 200 mL / Normal Range: 80-120 mL Maximum tolerable volume: 250 mL / Normal Range: 120-180 mL Recto-anal inhibitory reflex: Yes Balloon expulsion: No This exhibit blunted rectal sensation with at least 2/3 sensory tests. A recto-anal inhibitory reflex (RAIR) was present. This is a normal reflex. EMG Recruitment: EMG recruitment was performed. The patient shows a normal increase in activity with squeeze, and a no change in activity with valsalva. This indicates abnormal pelvic floor movement, which can be indicative of poor pelvic floor coordination secondary to pelvic floor non-relaxation / dyssynergia. Lesly Barnett APRN.ISABEL I have reviewed, verified, and confirmed the results of anorectal manometry, rectal sensation, tone and compliance testing and EMG testing. I agree with the impression as written above. Clair Edwards MD Colon & Rectal Surgery us Lesly Barnett APRN.FORM PRESSER DIGESTIVE DISEASE Beatrice l Result * PT ED PATIENT INFORMATION (10/03/2024) 10/03/2024 Narrative MUKUL - 10/03/2024 Provider MEREDITH your patient ORION MEREDITH started their Mukul on 10-03-2024 and completed it on 10-03-2024 Mukul program: PATIENT SAFETY INSTRUCTIONS FOR HEALTHCARE SETTINGS us Lesly Barnett APRN.FORM PRESSER MUKUL Final Result Performing Organization Address City/[facility]/ZIP Co de Phone Number MUKUL * HEPATITIS C ANTIBODY IA WITH CONFIRMATION (04/26/2024 3:01 PM EST) Hep C Antibody IA Negative Negative 04/27/2024 10:55 AM EST [facility] Comment:The result suggests no evidence of active infection with Hepatitis C virus. Should recent infection be suspected, repeat testing may be considered 4-6 weeks after this draw. Blood BLOOD SPECIMEN / Unknown Venipuncture / Unknown 04/26/2024 3:01 PM EST 04/26/2024 3:02 PM EST us Iliana Hendrickson PA-C LABORATORY Final Resu lt [facility] [address] [place] [address], [place] from Last 3 Months or Most Recently Relevant to Health Maintenance Insurance [employer] PPO Care Teams Section Crews Activities Clerk Relationship Specialty Start Date End Date Emerald Sanchez MD [address] [place], [place] [id number] PCP - General Family Medicine 03/27/19 Deena Osorio, UPHOLSTERY COVERS INSPECTOR [address] [place] [address] Referring Family Medicine 04/03/24 Darwin Starr DO [address] [place] [address] [place] [address] Referring Junior Designer 07/02/24
--- OUTSIDE RECORDS SUMMARY | 2024-12-09 21:57 | XMS_ITS | Encounter Summary ---
Author Organization [facility] Address [address] [place] [address] Care Team Providers Care Lead Technical Writer Name Role Phone Emerald Sanchez MD Unavailable Emerald Sanchez MD Primary Care Provider [phone] Encounter Details Date Type Department Care Team (Late st Contact Info) Description 03/29/2024 Abstract [facility] [address] [place] [address] Darwin Starr DO [address] [facility] [address] Carlyle Mancuso, [facility] Social History Tobacco Use Types Packs/Day Years [...] often do you attend chur ch or church services? Never 04/18/2023 Do you belong to any clubs o r organizations such as buddhism groups, unions, fraternal or athletic groups, or [...] and heating? Not hard at all 04/18/2023 [facility] - [...] place to sleep or slept in a longterm (including now)? No 04/18/2023 Comments No Sex [...] EDT Office Visit [facility] [address] [place] [address] Milton Duvall, DPM FACFAS [address] [place] [address] 12/26/2024 1:20 PM EDT Office Visit [facility] [address] [facility] [address] [place] [address] Jatin Cabrera MD [address] [facility] [address] [address] documented as of this encounter Goals Goal [...] documented as of this encounter Care Teams Lead Technical Writer Relationship Specialty Start Date End Date Emerald Sanchez MD [address] [facility] [address] [place], [place] [id number] PCP - Medical [place] [employer] 10/22/18 04/23/99 Emerald Sanchez MD [address] [facility] [address] [place] [address] PCP - General Family Medicine 08/30/22 documented as of this encounter
--- OUTSIDE RECORDS SUMMARY | 2024-12-09 21:57 | XMS_ITS | Encounter Summary ---
Author Organization [facility] Address [address] [facility] [place] [address] Care Team Providers Care Route Delivery Manager Name Role Phone Emerald Sanchez MD Unavailable Emerald Sanchez MD Primary Care Provider [phone] Encounter Details Date Type Department Care Team (Late st Contact Info) Description 03/22/2023 Abstract [facility] [address] [facility] [address] [place] [id number] Emerald Sanchez MD [address] [facility] [address] [place] [address] Social History Tobacco Use Types Packs/Day Years [...] EDT Office Visit [facility] [address] [place] [id number] Milton Duvall, DPM FACFAS [address] [facility] [place], [place] [id number] 12/26/2024 1:20 PM EDT Office Visit [facility] [address] [place] [address] [place] [address] Jatin Cabrera MD [address] [facility] [address] [address] documented as of this encounter Visit Diagnoses Not on filedocumented in this encounter Care Teams Route Delivery Manager Relationship Specialty Start Date End Date Emerald Sanchez MD [address] [place] [address] [address] PCP - Medical [place] [employer] 10/22/18 04/23/99 Emerald Sanchez MD [address] [place] [address] [address] PCP - General Family Medicine 08/30/22 documented as of this encounter
--- OUTSIDE RECORDS SUMMARY | 2024-12-09 21:57 | XMS_ITS | Encounter Summary ---
Author Organization [facility] Address [address] [facility] [place] [address] Care Team Providers Care Senior Sql Database Developer Name Role Phone Emerald Sanchez MD Unavailable Emerald Sanchez MD Primary Care Provider Encounter Details Date Type Department Care Team (Late st Contact Info) Description 03/24/2023 Abstract [facility] [place] [address] [facility] [address] [place] [phone] Emerald Sanchez MD [address] [facility] [address] [place] [address] Social History Tobacco Use Types Packs/Day Years [...] EDT Office Visit [facility] [address] [place] [id number] Milton Duvall, DPM FACFAS [address] [facility] [place], [place] [id number] 12/26/2024 1:20 PM EDT Office Visit [facility] [address] [place] [address] [place] [address] Jatin Cabrera MD [address] [facility] [place] [address] [address] documented as of this encounter Visit Diagnoses Not on filedocumented in this encounter Care Teams Senior Sql Database Developer Relationship Specialty Start Date End Date Emerald Sanchez MD [address] [place] [address] [address] PCP - Medical [place] Commercial 10/22/18 04/23/99 Emerald Sanchez MD [address] [address] [address] PCP - General Family Medicine 08/30/22 documented as of this encounter
--- OUTSIDE RECORDS SUMMARY | 2024-12-09 21:57 | XMS_ITS | Clinical Summary ---
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 Also, pt complained of tongue feeling itchy and feels like something is stuck in her throat . Patient received diphenhydramine (Benadryl) Medications montelukast (Singulair) 10 MG tabletIndications :Mild intermittent asthma without complication (HCC) Take 1 tablet (10 mg) by mouth at bedtime 30 tablet 04/01/20 24 025 Active albuterol (2.5 MG/3ML) 0.083% nebulizer solutionIndicatio ns:Moderate persistent asthmatic bronchitis with acute exacerbation (HCC) Take 3 mL (2.5 mg) by nebulization every 6 (six) hours if needed for wheezing 75 mL 11 04/16/20 24 025 Active hydrocortisone (Anusol-HC) 25 MG suppository UNWRAP AND INSERT 1 SUPPOSITORY RECTALLY EVERY 12 HOURS NEEDED FOR HEMORRHOIDS 07/09/19 25 Active tiZANidine (Zanaflex) 4 MG tabletIndications :Peroneal tendon tear, right, initial encounter Take 1 tablet (4 mg) by mouth every 6 (six) hours if needed for muscle spasms for up to 10 days 30 tablet 07/25/19 25 Active Cariprazine HCl (Vraylar) 4.5 MG capsuleIndication s:Bipolar disorder, in partial remission, most recent episode manic (HCC) Take 1 capsule by mouth Daily 100 capsule 3 08/31/19 25 Active Fluticasone-Umecl idin-Vilant (Trelegy Ellipta) 100-62.5-25 MCG/ACT aerosol powderIndications :Moderate persistent asthmatic bronchitis with acute exacerbation (HCC) INHALE 1 PUFF DAILY 60 each 2 09/04/19 25 Active cloNIDine (Catapres) 0.1 MG tablet 1 (one) time each day at the same time Active buPROPion XL (Wellbutrin XL) 150 MG 24 hr tablet Take 150 mg by mouth in the morning. 09/14/19 25 Active QUEtiapine XR (SEROquel XR) 50 MG 24 hr tablet Take 50 mg by mouth at bedtime 09/14/19 25 Active metoprolol succinate XL (Toprol-XL) 25 MG 24 hr tabletIndications :Hypercholesterol emia Take 1 tablet (25 mg) by mouth Daily 100 tablet 3 09/20/19 25 Active dicyclomine (Bentyl) 10 MG capsuleIndication s:Cramp, abdominal Take 2 capsules (20 mg) by mouth 3 (three) times a day as needed (cramping) 240 capsule 11 09/27/19 25 026 Active clomiPRAMINE (Anafranil) 50 MG capsuleIndication s:Anxiety,Trichot illomania TAKE 1 CAPSULE BY MOUTH AT BEDTIME 30 capsule 6 10/04/19 25 Active cephalexin (Keflex) 500 MG capsuleIndication s:Urinary tract infection without hematuria, site unspecified Take 1 capsule (500 mg) by mouth in the morning and 1 capsule (500 mg) before bedtime. 20 capsule 10/09/19 25 Active albuterol HFA 90 mcg/act inhalerIndication s:Mild intermittent asthma without complication (HCC) Inhale 2 puffs every 6 (six) hours if needed for wheezing 18 g 3 10/09/19 25 Active amphetamine-dextr oamphetamine XR (Adderall XR) 10 MG 24 hr capsuleIndication s:Attention deficit hyperactivity disorder (ADHD), predominantly inattentive type,Bipolar disorder, in partial remission, most recent episode manic (HCC),Agoraphobia with panic attacks Take 1 capsule (10 mg) by mouth in the morning. Do not crush or chew. Take with the 30mg tablet. 30 capsule 10/09/19 25 Active amphetamine-dextr oamphetamine XR (Adderall XR) 30 MG 24 hr capsuleIndication s:Attention deficit hyperactivity disorder (ADHD), predominantly inattentive type Take 1 capsule (30 mg) by mouth Daily Do not crush or chew. Take with the 10mg daily 30 capsule 10/09/19 25 Active citalopram (CeleXA) 10 MG tablet 1 (one) time each day at the same time Active propranolol (Inderal) 10 MG tablet every 12 (twelve) hours 10/01/19 25 Active OXcarbazepine (Trileptal) 300 MG tabletIndications :Numbness and tingling,Atypical migraine Take 0.5 tablets (150 mg) by mouth at bedtime for 7 days, THEN 1 tablet (300 mg) at bedtime. 34 tablet 11 10/11/19 Active Active Problems Problem Noted Date Diagnosed Date Lumbar radiculopathy 12/09/2024 Extruding suture 09/25/2024 Fall at home 09/10/2024 Assessment & Plan (09/10/2024 2:01 PM EDT): Tripped over kids onto the floor Knee laceration, left, sequela 09/10/2024 Laceration of right knee 09/10/2024 Assessment & Plan (09/10/2024 2:04 PM EDT): Add Probiotic to help replenish the good bacteria that are destroyed by the Antibiotics Florastor Florajen Align or try Activia in Yogurt Probiotics reduce the risk of antibiotic induced diarrhea Watch for secondary infections Alcohol use, unspecified wit h alcohol-induced psychotic disorder, unspecified 09/02/2024 Alcohol withdrawal delirium 09/02/2024 Hypertension 09/02/2024 Sinus tachycardia 09/02/2024 Assessment & Plan (09/02/2024 3:45 PM EDT): On metoprolol Recommend being off Adderall Major depressive disorder, recurrent, moderate 0 08/20/2024 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 Watch for any side effects like abdominal pain and nausea. Take the prednisone with food or milk. Prednisone may increase appetite. While on prednisone, watch for any sugar elevations. Snoring 04/16/2024 Pain and swelling of left shoulder 04/03/2024 Sprain of anterior talofibular ligament of right ankle 04/01/2024 Assessment & Plan (04/16/2024 10:33 AM EST): Dr. 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 Exercise Routinely Low Calorie Diet F/U in 4 weeks 3500 calorie deficit = 1lb weight loss Small portions TIming of meals Reduce Carbohydrate Intake High Protein Diet Localized edema 02/06/2024 Injury of right ankle 02/06/2024 Cervical radiculopathy 12/26/2023 Assessment & Plan (12/26/2023 3:20 PM EDT): I discussed with patient that while on prednisone, do not take any NSAIDs like Ibuprofen, Naprosyn, Alleve or motrin. Watch for any side effects like abdominal pain and nausea. Take the prednisone with food or milk. Prednisone may increase appetite. While on prednisone, watch for any sugar elevations. If NB consider PT and xrays Eventual MRI Encounter for well adult exam without abnormal f indings 12/04/2023 Assessment & Plan (12/04/2023 3:11 PM EDT): Modest Alcohol consumption No Tobacco Seat Belt use Exercise Regularly No Text Drive Social Accountability Tinea 10/03/2023 Weight gain 10/03/2023 Glucose intolerance 10/03/2023 Dyshidrosis 10/03/2023 Cholecystitis 04/18/2023 Encounter for postoperative care 04/18/2023 History of acute pancreatitis 04/18/2023 Assessment & Plan (04/18/2023 2:57 PM EST): Liver Specialist follow-up is May 01 Has seen Advertising [employer] x 2 Has seen a specialist for Diverticulosis and also has Gastroparesis Lipase was still elevated from 04/11/2023 History of cholecystectomy 04/18/2023 Assessment & Plan (04/18/2023 2:58 PM EST): Still with loose stools Avoid fatty meals Cough 04/18/2023 Assessment & Plan (04/18/2023 3:01 PM EST): Had cat exposure has Strep Could be post nasal drainage Anaphylactic syndrome 04/18/2023 Calculus of gallbladder with out cholecystitis without obstruction 03/23/2023 Acute biliary pancreatitis w ithout infection or necrosis ([facility]) 03/21/2023 History of COVID-19 02/06/2023 Overweight 02/06/2023 Dizziness 12/13/2022 Acute nonintractable headache 12/13/2022 Assessment & Plan (12/26/2023 3:14 PM EDT): Could be migraine CT scan of head last December 2022 was normal. Discussed with patient that if WRST headache of her life she needs to go to ER for possible subarachnoid hemorrhage Recurrent UTI 12/12/2022 Gastroparesis 11/02/2022 Tremors of nervous system 09/23/2022 Assessment & Plan (04/01/2024 8:59 AM EST): Avoid Stimulants: Caffeine, otc Decongestants Try Klonopin instead of Xanax We can't do Beta Blockers because of asthma If NB consider Neurology CT scan from 12/2022 was normal Anxiety 09/23/2022 Assessment & Plan (09/02/2024 3:39 PM EDT): Off Ativan Assessment & Plan (07/04/2024 3:37 PM EDT): Patient's Medicine is effective at controlling symptoms at current dose and frequency. PDMP reviewed with no evidence of overuse and abuse D/W patient to avoid use of benzodiazepines when consuming alcohol Advised against operating heavy machinery and driving long distances while on medicines. Assessment & Plan (02/06/2024 9:31 AM EDT): Patient's Medicine is effective at controlling symptoms at current dose and frequency. PDMP reviewed with no evidence of overuse and abuse D/W patient to avoid use of benzodiazepines when consuming alcohol Advised against operating heavy machinery and driving long distances while on medicines. Assessment & Plan (12/04/2023 3:12 PM EDT): Patient's Medicine is effective at controlling symptoms at current dose and frequency. PDMP reviewed with no evidence of overuse and abuse D/W patient to avoid use of benzodiazepines when consuming alcohol Advised against operating heavy machinery and driving long distances while on medicines. Assessment & Plan (05/08/2023 4:09 PM EST): Patient's Medicine is effective at controlling symptoms at current dose and frequency. PDMP reviewed with no evidence of overuse and abuse D/W patient to avoid use of benzodiazepines when consuming alcohol Advised against operating heavy machinery and driving long distances while on medicines. Attention deficit hyperactiv ity disorder (ADHD), predominantly inattentive type 09/23/2022 Assessment & Plan (12/04/2023 3:12 PM EDT): Patient's Current ADD is controlled with current dose No evidence of overuse or abuse Weight has been stable Encouraged Medication Holidays PDMP reviewed F/U routinely every 4 months Assessment & Plan (05/08/2023 4:09 PM EST): Patient's Current ADD is controlled with current dose No evidence of overuse or abuse Weight has been stable Encouraged Medication Holidays PDMP reviewed F/U routinely every 4 months Assessment & Plan (04/18/2023 2:44 PM EST): Patient's Current ADD is controlled with current dose No evidence of overuse or abuse Weight has been stable Encouraged Medication Holidays PDMP reviewed F/U routinely every 4 months Assessment & Plan (12/13/2022 4:50 PM EDT): Patient's Current ADD is controlled with current dose No evidence of overuse or abuse Weight has been stable Encouraged Medication Holidays PDMP reviewed F/U routinely every 4 months Bipolar disorder, in partial remission, most recent episode manic 09/23/2022 Assessment & Plan (09/02/2024 3:42 PM EDT): Patient is required to return to work in house. Patient will be seeing the [facility] [place] and they will start to manage the psychiatric medicines Assessment & Plan (06/06/2024 4:07 PM EST): Coping skills with counselor Diverticular disease of colon 09/23/2022 Dysphagia 09/23/2022 Elevated liver enzymes 09/23/2022 Exercise induced bronchospasm 09/23/2022 Finding of above normal blood pressure History of hysterectomy 09/23/2022 Hyperglycemia 09/23/2022 Hypersexuality 09/23/2022 Insomnia 09/23/2022 Irritable bowel syndrome with constipation 09/23 Mild intermittent asthma without complication Assessment & Plan (04/01/2024 9:00 AM EST): Add Singulair Mood swings 09/23/2022 Assessment & Plan (09/02/2024 3:39 PM EDT): Ultimately will see someone who does medicines. Nephrolithiasis 09/23/2022 Nonalcoholic steatohepatitis (ENGLISH) 09/23/2022 Other specified abnormal findings of blood chemi stry 09/23/2022 Poor concentration 09/23/2022 Sacroiliitis, not elsewhere classified Skin pain 09/23/2022 Thyroid enlargement 09/23/2022 Hypercholesterolemia 07/01/2021 Atherosclerosis of coronary artery without angin a pectoris 05/18/2021 Atherosclerosis of both carotid arteries 021 Atherosclerosis of aorta 06/16/2020 Generalized idiopathic epile psy and epileptic syndromes, not intractable, without status epilepticus 11/22/2019 Gastroesophageal reflux disease without esophagi tis 07/09/2019 Osteoarthritis of knee 06/14/2019 Vitamin D deficiency 05/16/2019 Assessment & Plan (12/04/2023 3:16 PM EDT): Has supplement PTSD (post-traumatic stress disorder) 02/24/2015 Resolved Problems Problem Noted Date Diagnosed Date Resolved Date Dysuria 12/12/2022 02/06/2023 Urinary frequency 12/12/2022 02/06/2023 UTI (urinary tract infection) 12/12/2022 02/06/2023 Severe acute respiratory syn drome coronavirus 2 (SARS-CoV-2) detected 11/30/2022 02/06/2023 Abnormal ultrasound 09/23/2022 02/07/20 23 Diverticulitis 09/23/2022 02/06/2023 Diverticulitis of large inte laurent without perforation or abscess without bleeding 09/23/2022 02/06/2023 Maxillary sinusitis 09/23/2022 02/07/20 23 Sinusitis 09/23/2022 02/06/2023 Obesity (BMI 30.0-34.9) 09/23/202201/22 Sciatica 09/23/2022 02/06/2023 Smoker 09/23/2022 02/06/2023 Tension headache 09/23/2022 02/06/2023 Encounters Date Type Department Care Team Description 12/09/2024 1:00 PM EDT Procedure Visit [facility] [address] [place] [address] [place] [address] Lumbar radiculopathy 12/09/2024 Travel 10/30/2024 [facility] [address] [facility] [address] [place] [address] Sandy Hammond PA Anxiety; Bipolar disorder, in partial remission, most recent episode manic (HCC) 10/23/2024 Clinisync Result Encounter [facility] External Department Unsolicited Provider, Generic External Data 10/21/2024 Clinisync Result Encounter [facility] External Department Unsolicited Provider, Generic External Data 10/21/2024 Clinisync Result Encounter [facility] External Department Unsolicited Shannon Darden NP 10/15/2024 12:00 PM EDT Procedure Visit [facility] [address] [facility] [address] [place] [address] [place] [address] Cervical radiculopathy; Numbness and tingling 10/15/2024 Travel 10/10/2024 1:00 PM EDT Office Visit [facility] [address] [facility] [address] [place] [address] [place] [address] Shannon Darden, INCIDENT RESPONSE MANAGER Numbness and tingling (Primary Dx); Atypical migraine ; Numbness and tingling of upper extremity; Numbness and tingling of left side of face 10/10/2024 Bamboo flowsheet [facility] [address] [place] [address] Shannon Darden NP 10/10/2024 Travel 10/08/2024 11:30 AM EDT [facility] [address] [facility] [address] [place] [address] Deena Osorio NP Numbness and tingling of upper extremity (Primary Dx); Attention deficit hyperactivity disorder (ADHD), predominantly inattentive type ; Bipolar disorder, in partial remission, most recent episode manic (HCC); Agoraphobia with panic attacks ; Numbness and tingling of left side of face; Urinary tract infection without hematuria, site unspecified; Inflammation and stiffening of spine; Mild intermittent asthma without complication (HCC) 10/08/2024 [facility]ill [facility] [address] [place] [address] [place] [address] Deena Osorio, JAGDISH Attention deficit hyperactivity disorder (ADHD), predominantly inattentive type ; Bipolar disorder, in partial remission, most recent episode manic (HCC); Agoraphobia with panic attacks 10/08/2024 Bamboo flowsheet [facility] [address] [place] [address] [place] [address] Deena Osorio, JAGDISH 10/08/2024 Travel 10/03/2024 Refill [facility] [address] [place] [address] [place] [address] Emerald Hagen MD Anxiety; Trichotillomania 09/26/2024 Telephone [facility] [address] [place] [address] [place] [address] Darwin Starr DO 09/25/2024 10:30 AM EDT Office [facility] [address] [place] [address] [place] [address] Deena Osorio NP Extrusion of suture, sequela (Primary Dx) 09/25/2024 Bamboo flowsheet [facility] [address] [place] [address] [place] [address] Deena Osorio, INCIDENT RESPONSE MANAGER 09/25/2024 Travel 09/19/2024 Refill [facility] [address] [place] [address] [place] [address] Emerald Hagen MD Tremors of nervous system 09/19/2024 Refill [facility] [address] [place] [address] [place] [address] Emerald Hagen MD Hypercholesterolemia 09/17/2024 11:00 AM EDT Office Visit [facility] [address] [place] [address] [place] [address] Sandy Hammond PA Laceration of right knee without complication, sequela (Primary Dx) 09/17/2024 Bamboo flowsheet [facility] [address] [facility] [address] [place] [id number] Sandy Hammond PA 09/17/2024 Travel 09/10/2024 1:30 PM EDT Office Visit [facility] [address] [facility] [address] [place] [address] Emerald Hagen MD Fall in home, sequela (Primary Dx); Laceration of right knee, subsequent encounter 09/10/2024 Travel 09/10/[address] [address] [place] [address] Violeta Santamaria LSW 09/09/[address] [facility] [address] [place] [address] Violeta Santamaria LSW from Last 3 Months Immunizations Immunization Administration Dates Next Due DTP 12/28/1993, 3,06/09/1992,06/20 HPV, Quadrivalent 11/02/2006 Hep B, Adolescent or Pediatric 01/05/2007,2006,02/20/1998 Influenza, Unspecified 02/09/2021,03/16/2020, Influenza, injectable, MDCK, preservative free, quadrivalent 03/16/2020,02/01/2017 Influenza, injectable, quadrivalent 01/08/2018 Influenza, injectable, quadr ivalent, preservative free 02/09/2021,01/08/2018,03/25/2016 MMR 12/07/1992,06/09/1992 Meningococcal ACWY, unspecified 11/02/2006 Meningococcal MCV4P 11/02/2006 OPV 12/07/1992, 3,05/21/1990,01/10 Tdap 09/06/2024,02/05/2010 Varicella 10/31/1990 Family History Medical History Relation Name Comments Accidental Brother Jose Antonio Barnett No Known Problems Daughter 1 No Known Problems Daughter 2 No Known Problems Daughter 3 No Known Problems Father Diabetes Maternal Grandmother Analia Anesthesia problems Mother Hien Hyperlipidemia Mother Hien Hypertension Mother Hien Migraines Other 2 mother's side Relation Name Status Comments Brother Jose Antonio Barnett Daughter 1 Alive Daughter 2 Alive Daughter 3 Alive Father Maternal Grandmother Analia Mother Hien Alive Other 1 Spouse Alive Other 2 mother's side Social History Tobacco Use Types Packs/Day Years Used Date Smoking Tobacco: Former Cigarettes Smokeless Tobacco: Never Tobacco Cessation:Counseling Given: Not Answered Alcohol Use Standard Drinks/Week Comments Yes 2 [...] week 05/09/2024 How often do you attend sikh or adventism serv ices? Never 05/09/2024 Do you belong [...] Recorded Patient Health Questionnaire-2 Score 4 10/08/2024 [facility] Questionnaire Answer Date Recorded [...] place to sleep or slept in a fpc (including now)? No 04/18/2023 Housing Stability Vital Sign Answer Celso e Recorded In the last 12 months, was t here a time when you were not able to pay the mortgage or rent on time? No 05/09/2024 In the past 12 months, how m any times have you moved where you were living? 0 05/09/2024 At any time in the past 12 m [facility], were you homeless or living in a fpc (including now)? No 05/09/2024 Comments No Sex and Gender Information Value Date Recorded Sex Assigned at Not on file Legal Sex Female 7:29 PM EDT Gender Identity Not on file Sexual Orientation Not on file Last Filed Vital Signs Vital Sign Reading Time Taken Comments Blood Pressure 134/88 10/08/2024 11:42 AM EDT Pulse 110 10/08/2024 11:42 AM EDT Temperature 36.5 C (97.7 F) 04/18/2024 4:42 PM EST Respiratory Rate 16 10/08/2024 11:42 AM EDT Oxygen Saturation 99% 10/08/2024 11:42 AM EDT Inhaled Oxygen Concentration - - Weight 87.5 kg (193 lb) 10/10/2024 12:31 PM EDT Height 157.5 cm (5' 2 ) 10/10/2024 12:31 PM EDT Body Mass Index 35.3 10/10/2024 12:31 PM EDT Plan of Treatment Upcoming Encounters Date Type Department Care Team (Late st Contact Info) Description 12/13/2024 9:40 AM EDT Office Visit [facility] [address] [place] [phone] Milton Duvall, DPM [facility] [address] [place] [address] 12/26/2024 1:20 PM EDT Office Visit [facility] [address] [facility] [address] [place] [address] Jatin Cabrera MD [address] [facility] [address] [address] Health Maintenance Due Date Last Done Comments Influenza Vaccine (#1) 2024 , 02/09/2021, 03/16/2020, Additional history exists Cervical Cancer Screening Discontinued Pap Smear Discontinued 03/20/2024, 04/20/2022, 03/25 HPV/Cotest Discontinued Goals Goal Patient Goal Type Associated Problems Recent Progress Patient-Stated? Author Help patient manage antidepressant medication Care Plan Patient on antidepressant monitoring plan No Emerald Hagen MD Baseline PHQ-9 Care Plan Baseline PHQ-9 No Emerald Hagen MD Procedures Procedure Name Priority Date/Time Associated Diagnosis Comments [facility] EMG 1 EXTREMEITY Routine 12/09/2024 9:00 AM EDT Numbness and tingling XR ABDOMEN 1V SUPINE 10/23/2024 1:13 PM EDT MRI HEAD/BRAIN WO/W CONTR 10/21/2024 11:39 AM EDT XR ABDOMEN 1V SUPINE 10/21/2024 11:17 AM EDT PAP SMEAR Routine 03/20/2024 12:00 AM EST from Last 3 Months or Most Recently Relevant to Health Maintenance Results * EMG 1 Extremeity (12/09/2024 9:00 AM EDT) us Shannon Darden NP NEUROLOGY ORDERABLES Ed ited Result - Final * XR ABDOMEN 1V SUPINE (10/23/2024 1:13 PM EDT) Only the most recent of2 resultswithin the time period is included. Anatomical Region Laterality Modality Other 10/23/2024 1:13 PM EDT Narrative 10/23/2024 3:17 PM EDT * * [...] No radiopaque markers are noted in the [id number]. IMPRESSION: 0 Sitzmarks markers. The previously noted [...] any questions regarding this interpretation, please call [phone]. If you are unable to reach us at the number above, please feel free to contact [facility] at [phone]. [id number]^[email or web address]^SI^ACN Procedure Note Radiology, Radiologist, - 10/23/2024 * * *Final Report* * [...] No radiopaque markers are noted in the [id number]. IMPRESSION: 0 Sitzmarks markers. The previously noted [...] any questions regarding this interpretation, please call [phone]. If you are unable to reach us at the number above, please feel free to contact [facility] at [phone]. [id number]^[email or web address]^SI^ACN Generic External Data Provider [facility] Final Result * MRI HEAD/BRAIN WO/W CONTR (10/21/2024 11:39 AM EDT) Anatomical Region Laterality Modality Radiographic Melissa ging 10/21/2024 11:3 9 AM EDT Narrative 10/21/2024 11:42 [place] [address] Magnetic Resonance Report Signed Patient: ORION BARNETT MR#: [id number] : 1990 Acct:[id number] Age/Sex: 34 / F ADM Date: 10/21/24 Loc: MRI Attending Dr: SHANNON DARDEN Ordering Physician: SHANNON DARDEN Date of Service: 10/21/24 Procedure(s): MR head/brain wo/w con Accession Number(s): [id number] cc: EMERALD HAGEN ; SHANNON DARDEN [place] [address] Patient Name: ORION BARNETT MRN: [id number] date: 1990 Sex: F Assigned Patient Location: MRI Current Patient Location: MRI Accession/Order Number: [id number] Exam Date: 10/21/2024 11:17 Report Date: 10/21/2024 11:39 At the request of: SHANNON DARDEN Procedure: MR head/brain wo/w con MRI BRAIN WITHOUT AND WITH INTRAVENOUS CONTRAST CLINICAL DATA: Atypical migraine headaches. Numbness and tingling at the hands and left face. COMPARISON: CT 08/14/2024 Multiecho, multiplanar imaging of the brain was performed before and after intravenous administration of 18 mL of Dotarem. The ventricles are normal in size and position. There is physiologic basal ganglia mineralization. There are no areas of abnormal signal intensity or enhancement within the supra or infratentorial brain. There is no restricted diffusion to suggest a recent ischemic event. No extra-axial collections or mass effect are seen. No midline abnormalities are noted. The imaged paranasal sinuses and mastoid air cells are clear. MR/MR head/brain wo/w con IMPRESSION: NO ACUTE INTRACRANIAL FINDINGS. Impression dictated by: Sandy Knight M.D. 10/21/2024 11:39 AM Dictation Location: [place] [address] Electronically authenticated by: [id number] Y Date: 10/21/2024 11:39 Dictated By: Sandy Knight M.D. Signed By: 10/21/24 1142 DD/ 1139 TD/TT: [employer]: Procedure Note Radiology, Radiologist, MD - 10/21/2024 [place] [address] Magnetic Resonance Report Signed Patient: ORION BARNETT AMR#: [id number] : 1990Acct:[id number] Age/Sex: 34 / FADM Date: 10/21/24 Loc: MRI Attending Dr: SHANNON DARDEN Ordering Physician: SHANNON DARDEN Date of Service: 10/21/24 Procedure(s): MR head/brain wo/w con Accession Number(s): [id number] cc: EMERALD HAGEN ; SHANNON DARDEN The [place] [id number] Patient Name: ORION BARNETT MRN: [id number] date: 1990 Sex: F Assigned Patient Location: MRI Current Patient Location: MRI Accession/Order Number: [id number] Exam Date: 10/21/2024 11:17 Report Date: 10/21/2024 11:39 At the request of: SHANNON DARDEN Procedure: MR head/brain wo/w con MRI BRAIN WITHOUT AND WITH INTRAVENOUS CONTRAST CLINICAL DATA: Atypical migraine headaches. Numbness and tingling at the hands and left face. COMPARISON: CT 08/14/2024 Multiecho, multiplanar imaging of the brain was performed before and after intravenous administration of 18 mL of Dotarem. The ventricles are normal in size and position. There is physiologicbasal ganglia mineralization. There are no areas of abnormal signal intensityor enhancement within the supra or infratentorial brain. There is norestricted diffusion to suggest a recent ischemic event. No extra-axial collectionsor mass effect are seen. No midline abnormalities are noted. The imaged paranasal sinuses and mastoid air cells are clear. MR/MR head/brain wo/w con IMPRESSION: NO ACUTE INTRACRANIAL FINDINGS. Impression dictated by: Sandy Knight M.D. 10/21/2024 11:39 AM Dictation Location: [place] [address] Electronically authenticated by: [id number] Y Date: 1:39 Dictated By: Sandy Knight M.D. Signed By:10/21/24 1142 DD/ 1139 TD/TT: [employer]: us Shannon Darden INCIDENT RESPONSE MANAGER IMG XR PROCEDURES Final Result * Pap Smear (03/20/2024 12:00 AM EST) Swab Cervical swab / Unknown us Darwin Starr DO LAB CYTOLOGY ORDERABLES Final Re sult EXTERNAL LAB from Last 3 Months or Most Recently Relevant to Health Maintenance Additional Health Concerns Active Problems Noted Date Diagnosed Date Patient on antidepressant monitoring plan 2023 Baseline PHQ-9 05/08/2023 Insurance [employer] Care Teams Extractor Loader And Unloader Relationship Specialty Start Date End Date Emerald Hagen MD [address] [facility] 110 [place] [address] PCP - Medical [place] [employer] 10/22/18 04/23/99 Emerald Hagen MD [address] [place] [address] PCP - General Family Medicine 08/30/22
--- OUTSIDE RECORDS SUMMARY | 2024-12-09 21:57 | XMS_ITS | Encounter Summary ---
Author Organization [facility] Address [address] [facility] [place] [address] Care Team Providers Care Recycling Center Operator Name Role Phone Emerald Hagen MD Unavailable Emerald Hagen MD Primary Care Provider [phone] Encounter Details Date Type Department Care Team (Late st Contact Info) Description 03/17/2024 Clinisync Result Encounter [facility] External Department Unsolicited Provider, Generic External Data Social History Tobacco Use Types Packs/Day Years [...] week 04/18/2023 How often do you attend [facility] or protestant services? Never 04/18/2023 Do you belong to any clubs o r organizations such as confucianist groups, unions, fraternal or athletic groups, or [...] and heating? Not hard at all 04/18/2023 [facility] of Occupat ional Health - Occupational [...] Office Visit [facility] [address] [place] [address] Milton Duvall, DPM FACFAS 368 [place] [address] 12/26/2024 1:20 PM EDT Office Visit [facility] [address] [facility] 310 [place] [address] Jatin Cabrera MD 1949 [facility] [address] [address] documented as of this encounter Goals Goal Patient Goal Type Associated Problems Recent Progress Patient-Stated? Author Help patient manage antidepressant medication Care Plan Patient on antidepressant monitoring plan No Emerald Hagen MD Baseline PHQ-9 Care Plan Baseline PHQ-9 No Emerald Hagen MD documented as of this encounter Procedures Procedure Name Priority Date/Time Associated Diagnosis Comments MR ANKLE RIGHT WO IV CONTRAST 03/17/2024 9:08 AM EST documented in this encounter Results * MR ankle right wo IV contrast (03/17/2024 9:08 AM EST) Anatomical Region Laterality Modality Lower Extremities, Ankle Right Magneti c Resonance 03/17/2024 9:08 AM EST Narrative 03/17/2024 9:11 [place] [address] Magnetic Resonance Report Signed Patient: BELGICA BARNETT MR#: [id number] : 1990 Acct:[id number] Age/Sex: 33 / F ADM Date: 03/14/24 Loc: MRI Attending Dr: Laurie Navas M.D. Ordering Physician: Laurie Navas M.D. Date of Service: 03/14/24 Procedure(s): MR ankle RT wo con Accession Number(s): [id number] cc: EMERALD HAGEN ; Laurie Navas M.D. The [place] [id number] Patient Name: BELGICA BARNETT MRN: [id number] date: 1990 Sex: F Assigned Patient Location: MRI Current Patient Location: Accession/Order Number: [id number] Exam Date: 03/14/2024 15:04 Report Date: 03/17/2024 09:08 At the request of: LAURIE NAVAS Procedure: MR ankle RT wo con HISTORY: [...] within normal limits. Electronically authenticated by: MICHAEL SAUCEDO Date: 03/17/2024 09:08 Dictated By: Michale Saucedo M.D. Signed By: 03/17/24910 DD/ 7 TD/TT: Outsole Molder: Procedure Note Radiology, Radiologist, MD - 03/17/2024 [place] [address] Magnetic Resonance Report Signed Patient: BELGICA BARNETT AMR#: [id number] : 1990Acct:[id number] Age/Sex: 33 / FADM Date: 03/14/24 Loc: MRI Attending Dr: Laurie Navas M.D. Ordering Physician: Laurie Navas M.D. Date of Service: 03/14/24 Procedure(s): MR ankle RT wo con Accession Number(s): [id number] cc: EMERALD HAGEN ; Laurie Navas M.D. The [place] [id number] Patient Name: BELGICA BARNETT MRN: [id number] date: 1990 Sex: F Assigned Patient Location: MRI Current Patient Location: Accession/Order Number: [id number] Exam Date: 03/14/2024 15:04 Report Date: 03/17/2024 09:08 At the request of: LAURIE NAVAS Procedure: MR ankle RT wo con HISTORY: Right ankle pain since an injury on 01/10/2024. Pain and swelling along the medial and lateral aspect of the ankle. Sprain of talofibularligament. MR ankle RT wo con: 03/14/2024 3:04 PM EST COMPARISON: Radiographs right ankle 03/04/2024 and radiographs right footand ankle 01/10/2024. TECHNIQUE: Multiplanar, multisequence MRI images of the ankle wereobtained without contrast. FINDINGS: LIGAMENTS: The anterior talofibular ligament appears grossly intact.However, there is an ovoid well-corticated 6 mm ossific focus again seen along the anteroinferior aspect of the lateral malleolus at the expected attachmentof the anterior talofibular ligament as seen on the prior radiographs. The calcaneofibular ligament, posterior talofibular ligament, and distal tibiofibular ligaments appear within normal limits. The deltoid ligament complex appears moderately thickened and of intermediate signal intensityon the proton density fat-saturated sequence. The flexor retinaculum alongthe medial aspect of the medial malleolus appears moderately thickened and of intermediate signal intensity with a small amount of adjacent soft tissue edema. TENDONS: There is evidence of a moderate grade longitudinalpartial-thickness tear involving the posterior aspect of the inframalleolar portion of the peroneus brevis tendon spanning approximately 2.5 cm in length as bestseen on the axial oblique proton density fat-saturated images. The other tendonsof the ankle appear within normal limits. There is a small amount of fluid withinthe retromalleolar and inframalleolar portion of the posterior tibialis tendon sheath. SINUS TARSI AND TARSAL TUNNEL: No space-occupying mass is seen in thetarsal tunnel or the sinus tarsi. BONES AND JOINTS: The bone marrow signal intensity is age appropriate. No unstable osteochondral defect of the tibiotalar joint is identified. Thereis a small tibiotalar joint effusion. There is a small area of decreased T1 and increased STIR signal intensity within the subchondral bone of the medial talar dome. This measures approximately 4 x 7 mm in transverse and AP dimension.No overlying chondral abnormality is seen. There is a moderate amount of bone marrow edema involving the medial aspect of the body and neck of thetalus. There is also a small amount of bone marrow edema within the posteromedial aspect of the tibial plafond. There is a small amount of fluid within ajoint recess posterior to the posterior subtalar joint. PLANTAR FASCIA: There is no abnormal thickening or abnormal signalintensity of the plantar fascia and there is no surrounding soft tissue edema tosuggest plantar fasciitis. MR/MR ankle RT wo con IMPRESSION: 1. There are MRI findings compatible with a moderate grade sprain oravulsion injury of the flexor retinaculum from the medial malleolus with adjacentsoft tissue edema in this region. Therefore, the small linear focus ofossification projecting along the medial aspect of the medial malleolus on the prior radiographs is most likely secondary to either a small avulsion fractureor heterotopic ossification in this region. 2. Probable subacute grade 2 sprain of the deltoid ligament complex. Theother ligaments of the ankle including the anterior talofibular ligament appear grossly intact. However, there is a 6 mm posttraumatic ossicle again seen along the anteroinferior aspect of the lateral malleolus at the expectedattachment of the anterior talofibular ligament compatible with the sequela of remote trauma to this region. 3. There is evidence of a probable low-grade 4 x 7 mm osteochondral injuryof the medial talar dome. There are also bone contusions involving the medial aspect of the body and neck of the talus and a small bone contusion of the posteromedial aspect of the tibial plafond. There is an associated small tibiotalar joint effusion. 4. There is a moderate grade longitudinal partial-thickness tear of the posterior aspect of the inframalleolar portion of the peroneus brevistendon spanning approximately 2.5 cm in length. The other tendons of the ankleappear within normal limits. Electronically authenticated by: MICHAEL SAUCEDO Date: 03/17/2024 09:08 Dictated By: Michael Saucedo M.D. Signed By:03/17/24910 DD/ 7 TD/TT: Outsole Molder: us Generic External Data Provider IMG MRI PROCEDURE S Final Result documented in this encounter Visit Diagnoses Not on filedocumented in this encounter Additional Health Concerns Active Problems Noted Date Diagnosed Date Patient on antidepressant monitoring plan 2023 Baseline PHQ-9 05/08/2023 documented as of this encounter Care Teams Recycling Center Operator Relationship Specialty Start Date End Date Emerald Hagen MD [address] [place] [address] PCP - Medical [place] [employer] 10/22/18 04/23/99 Emerald Hagen MD [address] [place] [address] PCP - General Family Medicine 08/30/22 documented as of this encounter
--- OUTSIDE RECORDS SUMMARY | 2024-12-09 21:57 | XMS_ITS | Encounter Summary ---
Author Organization [facility] Address [address] [facility] [place] [address] Care Team Providers Care Service Porter Name Role Phone Emerald Sanchez MD Unavailable Emerald Sanchez MD Primary Care Provider [phone] Encounter Details Date Type Department Care Team (Late st Contact Info) Description 04/03/2024 Abstract [facility] [address] [facility] 110 [place] [address] Emerald Sanchez MD [address] [place] [address] [place] [address] Social History Tobacco Use Types Packs/Day Years [...] often do you attend chur ch or scientologist services? Never 04/18/2023 Do you belong to [...] and heating? Not hard at all 04/18/2023 [facility] of Occupat ional Health - [...] place to sleep or slept in a long-term (including now)? No 04/18/2023 Comments No Sex [...] EDT Office Visit [facility] [address] [place] [address] Milton Duvall, DPM FACFAS 368 [place] [address] 12/26/2024 1:20 PM EDT Office Visit [facility] [address] [facility] 310 [place] [address] Jatin Cabrera MD 8622 [facility] [address] [address] documented as of this encounter Goals Goal [...] documented as of this encounter Care Teams Service Porter Relationship Specialty Start Date End Date Emerald Sanchez MD [address] [place] [address] [place], [place] [id number] PCP - Medical [place] [employer] 10/22/18 04/23/99 Emerald Sanchez MD [address] [place] [address] [place] [address] PCP - General Family Medicine 08/30/22 documented as of this encounter
--- OUTSIDE RECORDS SUMMARY | 2024-12-09 21:57 | XMS_ITS | Encounter Summary ---
Author Organization [facility] Address [address] [facility] [place] [address] Care Team Providers Care Surveillance Director Name Role Phone Emerald Sanchez MD Unavailable Emerald Sanchez MD Primary Care Provider [phone] Encounter Details Date Type Department Care Team (Late st Contact Info) Description 04/02/2024 Abstract [facility] [address] [facility] 110 [place] [address] Emerald Sanchez MD [address] [place] [address] [place] [address] Social History Tobacco Use Types Packs/Day Years [...] often do you attend chur ch or episcopalian services? Never 04/18/2023 Do you belong to any clubs o r organizations such as sabianist groups, unions, fraternal or athletic groups, or [...] and heating? Not hard at all 04/18/2023 [facility] of Occupat ional Health - Occupational [...] place to sleep or slept in a [place] [facility] [place] facility (including now)? No 04/18/2023 Comments No Sex [...] EDT Office Visit [facility] [address] [place] [address] Milton Duvall, DPM FACFAS 368 [place] [address] 12/26/2024 1:20 PM EDT Office Visit [facility] [address] [facility] 310 [place] [address] Jatin Cabrera MD 2160 [facility] [address] [address] documented as of this encounter Goals Goal [...] documented as of this encounter Care Teams Surveillance Director Relationship Specialty Start Date End Date Emerald Sanchez MD [address] [place] [address] [place], [place] [address] PCP - Medical [place] [employer] 10/22/18 04/23/99 Emerald Sanchez MD [address] [place] [address] [place] [address] PCP - General Family Medicine 08/30/22 documented as of this encounter
--- OUTSIDE RECORDS SUMMARY | 2024-12-09 21:57 | XMS_ITS | Encounter Summary ---
Author Organization [facility] Address [address] [facility] [place] [address] Care Team Providers Care Agronomist Name Role Phone Emerald Sanchez MD Unavailable Emerald Sanchez MD Primary Care Provider [phone] Encounter Details Date Type Department Care Team (Late st Contact Info) Description 03/21/2023 Abstract [facility] [address] [facility] 110 [place] [address] Emerald Sanchez MD [address] [facility] 110 [place] [address] Social History Tobacco Use Types Packs/Day Years [...] EDT Office Visit [facility] [address] [place] [address] Milton Duvall, DPM FACFAS 368 [facility] [place], [place] [address] 12/26/2024 1:20 PM EDT Office Visit [facility] [address] [place] [address] [place] [address] Jatin Cabrera MD 1761 [facility] [address] [address] documented as of this encounter Visit Diagnoses Not on filedocumented in this encounter Care Teams Agronomist Relationship Specialty Start Date End Date Emerald Sanchez MD [address] [address] PCP - Medical [place] [employer] 10/22/18 04/23/99 Emerald Sanchez MD [address] [address] PCP - General Family Medicine 08/30/22 documented as of this encounter
--- OUTSIDE RECORDS SUMMARY | 2024-12-09 21:57 | XMS_ITS | Encounter Summary ---
Author Organization [facility] Address [address] [place] [address] Care Team Providers Care Field Technical Specialist Name Role Phone Emerald Sanchez MD Unavailable Emerald Sanchez MD Primary Care Provider [phone] Encounter Details Date Type Department Care Team (Late st Contact Info) Description 03/20/2023 Orders Only [facility] 112 [facility] 110 [place] [address] A, Unknown Practice [address] [place], [place] [address] Social History Tobacco Use Types Packs/Day Years [...] EDT Office Visit [facility] [address] [place] [address] Milton Duvall, DPM FACFAS 368 [place] [address] 12/26/2024 1:20 PM EDT Office Visit [facility] [address] [place] 310 [place] [address] Jatin Cabrera MD [address] [place] [address] [place], [place] [address] documented as of this encounter Procedures Procedure Name Priority Date/Time Associated Diagnosis Comments SCANNED LABS Routine 03/15/2023 8:18 AM EST SCANNED LABS Routine 03/15/2023 8:11 AM EST documented in this encounter Results * SCANNED LABS (03/15/2023 8:18 AM EST) us Unknown Practice A LAB CHG PERFORMABLES Final Re sult * SCANNED LABS (03/15/2023 8:11 AM EST) us Unknown Practice A LAB CHG PERFORMABLES Final Re sult documented in this encounter Visit Diagnoses Not on filedocumented in this encounter Care Teams Field Technical Specialist Relationship Specialty Start Date End Date Emerald Sanchez MD [address] [address] PCP - Medical [place] [employer] 10/22/18 04/23/99 Emerald Sanchez MD [address] [address] PCP - General Family Medicine 08/30/22 documented as of this encounter
--- OUTSIDE RECORDS SUMMARY | 2024-12-09 21:57 | XMS_ITS | Encounter Summary ---
Author Organization [facility] Address [address] [facility] [place] [address] Care Team Providers Care Snow Fence Erector Name Role Phone Emerald Sanchez MD Unavailable Emerald Sanchez MD Primary Care Provider [phone] Encounter Details Date Type Department Care Team (Late st Contact Info) Description 04/03/2024 Abstract [facility] [address] [facility] 110 [place] [address] Emerald Sanchez MD [address] [place] [address] [place] [address] Social History Tobacco Use Types Packs/Day Years [...] often do you attend chur ch or baptist services? Never 04/18/2023 Do you belong to any clubs o r organizations such as methodist groups, unions, fraternal or athletic groups, or [...] and heating? Not hard at all 04/18/2023 [facility] of Occupat ional [...] place to sleep or slept in a fci (including now)? No 04/18/2023 Comments No Sex [...] EDT Office Visit [facility] [address] [place] [address] Milton Duvall, DPM FACFAS 368 [place] [address] 12/26/2024 1:20 PM EDT Office Visit [facility] [address] [facility] 310 [place] [address] Jatin Cabrera MD 3675 [facility] [address] [address] documented as of this encounter Goals Goal [...] documented as of this encounter Care Teams Snow Fence Erector Relationship Specialty Start Date End Date Emerald Sanchez MD [address] [place] [address] [place], [place] [address] PCP - Medical [place] [employer] 10/22/18 04/23/99 Emerald Sanchez MD [address] [place] [address] [place] [address] PCP - General Family Medicine 08/30/22 documented as of this encounter
--- OUTSIDE RECORDS SUMMARY | 2024-12-09 21:57 | XMS_ITS | Encounter Summary ---
Author Organization [facility] Address [address] [facility] [place] [address] Care Team Providers Care Doctor Of Nurse Anesthesia Name Role Phone Emerald Sanchez MD Unavailable Emerald Sanchez MD Primary Care Provider [phone] Encounter Details Date Type Department Care Team (Late st Contact Info) Description 03/21/2023 Abstract [facility] [address] [facility] 110 [place] [address] Emerald Sanchez MD [address] [facility] 110 [place] [address] Social History Tobacco Use Types Packs/Day Years [...] EDT Office Visit [facility] [address] [place] [address] Milton Duvall, DPM FACFAS 368 [facility] [place], [place] [address] 12/26/2024 1:20 PM EDT Office Visit [facility] [address] [place] [address] [place] [address] Jatin Cabrera MD 6642 [facility] [address] [address] documented as of this encounter Visit Diagnoses Not on filedocumented in this encounter Care Teams Doctor Of Nurse Anesthesia Relationship Specialty Start Date End Date Emerald Sanchez MD [address] [place] [address] [address] PCP - Medical [place] [employer] 10/22/18 04/23/99 Emerald Sanchez MD [address] [place] [address] [address] PCP - General Family Medicine 08/30/22 documented as of this encounter
--- OUTSIDE RECORDS SUMMARY | 2024-12-09 21:57 | XMS_ITS | Encounter Summary ---
Author Organization [facility] Address [address] [facility] [place] [address] Care Team Providers Care Heating And Ventilating Worker Name Role Phone Emerald Sanchez MD Unavailable Emerald Sanchez MD Primary Care Provider [phone] Encounter Details Date Type Department Care Team (Late st Contact Info) Description 08/27/2024 Abstract [facility] [address] [facility] 110 [place] [address] Emerald Sanchez MD [address] [place] [address] [place] [address] Social History Tobacco Use Types Packs/Day Years [...] week 05/09/2024 How often do you attend rastafarian or sikhism serv ices? Never 05/09/2024 Do you belong to any clubs o r organizations such as rastafarian groups, unions, fraternal or athletic groups, or [...] Recorded Patient Health Questionnaire-2 Score 0 08/01/2024 [facility] of Occupat ional Health - Occupational [...] time in the past 12 m [facility], were you homeless or living in [...] EDT Office Visit [facility] [address] [facility] [place] [address] Milton Duvall, DPM FACFAS 368 [facility] [place] [address] 12/26/2024 1:20 PM EDT Office Visit [facility] [address] [place] [address] [place] [address] Jatin Cabrera MD 5335 [facility] [address] [id number] documented as of this encounter Goals Goal [...] documented as of this encounter Care Teams Heating And Ventilating Worker Relationship Specialty Start Date End Date Emerald Sanchez MD 112 [facility] 110 [place] [address] PCP - Medical [place] [employer] 10/22/18 04/23/99 Emerald Sanchez MD 112 [facility] 110 [place] [address] PCP - General Family Medicine 08/30/22 documented as of this encounter
--- OUTSIDE RECORDS SUMMARY | 2024-12-09 21:57 | XMS_ITS | Encounter Summary ---
Author Organization [facility] Address [address] [facility] [place] [address] Care Team Providers Care Rigger Supervisor Name Role Phone Emerald Sanchez MD Unavailable Emerald Sanchez MD Primary Care Provider [phone] Encounter Details Date Type Department Care Team (Late st Contact Info) Description 04/03/2024 Abstract [facility] [address] [facility] 110 [place] [phone] Emerald Sanchez MD [address] [place] [address] [place] [address] Social History Tobacco Use Types Packs/Day Years [...] often do you attend chur ch or quaker services? Never 04/18/2023 Do you belong to any clubs o r organizations such as catholic groups, unions, fraternal or athletic groups, or [...] and heating? Not hard at all 04/18/2023 [facility] - [...] place to sleep or slept in a mcfp (including now)? No 04/18/2023 Comments No Sex [...] EDT Office Visit [facility] [address] [place] [address] Milton Duvall, DPM FACFAS [address] [place] [address] 12/26/2024 1:20 PM EDT Office Visit [facility] [address] [facility] [address] [place] [address] Jatin Cabrera MD 0276 [facility] [address] [address] documented as of this encounter Goals Goal [...] documented as of this encounter Care Teams Rigger Supervisor Relationship Specialty Start Date End Date Emerald Sanchez MD [address] [place] [address] [place], [place] [id number] PCP - Medical [place] Commercial 10/22/18 04/23/99 Emerald Sanchez MD [address] [place] [address] [place] [address] PCP - General Family Medicine 08/30/22 documented as of this encounter
--- OUTSIDE RECORDS SUMMARY | 2024-12-09 21:57 | XMS_ITS | Encounter Summary ---
Author Organization [facility] Address [address] [place] [address] Care Team Providers Care Motor Inspection Mechanic Name Role Phone Emerald Hagen MD Unavailable Emerald Hagen MD Primary Care Provider [phone] Encounter Details Date Type Department Care Team (Late st Contact Info) Description 05/03/2024 Clinisync Result Encounter [facility] External Department Unsolicited Nakia Hammond, PA [address] [facility] 110 [place] [address] Social History Tobacco Use Types Packs/Day Years [...] or neighbors? Three times a week 04/18/20 23 How often do you get togethe r with friends or relatives? Twice a week 04/18/2023 How often do you attend chur ch or bahai services? Never 04/18/2023 Do you belong to any clubs o r organizations such as mosque groups, unions, fraternal or athletic groups, or [...] and heating? Not hard at all 04/18/2023 [facility] - Occupational [...] Description 12/13/2024 9:40 AM EDT Office Visit [facility] [address] [place] [address] Milton Duvall, DPM FACFAS [address] [place] [address] 12/26/2024 1:20 PM EDT Office Visit [facility] [address] [facility] 310 [place] [address] Jatin Cabrera MD 3264 [facility] [address] [address] documented as of this encounter Goals Goal Patient Goal Type Associated Problems Recent Progress Patient-Stated? Author Help patient manage antidepressant medication Care Plan Patient on antidepressant monitoring plan No Emerald Hagen MD Baseline PHQ-9 Care Plan Baseline PHQ-9 No Emerald Hagen MD documented as of this encounter Procedures Procedure Name Priority Date/Time Associated Diagnosis Comments MR CERVICAL SPINE WO CONTRAST 05/03/2024 4:01 PM EST documented in this encounter Results * MR cervical spine wo contrast (05/03/2024 4:01 PM EST) Anatomical Region Laterality Modality Spine, C-spine Magnetic Resonan ce 05/03/2024 4:01 PM EST Narrative 05/03/2024 4:04 [place] [address] Magnetic Resonance Report Signed Patient: BELGICA BARNETT MR#: [id number] : 1990 Acct:[id number] Age/Sex: 33 / F ADM Date: 05/03/24 Loc: MRI Attending Dr: NAKIA HAMMOND Ordering Physician: NAKIA HAMMOND Date of Service: 05/03/24 Procedure(s): MR cervical spine wo con Accession Number(s): [id number] cc: EMERALD HAGEN ; NAKIA HAMMOND [place] [address] Patient Name: BELGICA BARNETT MRN: [id number] date: 1990 Sex: F Assigned Patient Location: MRI Current Patient Location: MRI Accession/Order Number: [id number] Exam Date: 05/03/2024 14:00 Report Date: 05/03/2024 16:01 At the request of: NAKIA HAMMOND Procedure: MR cervical spine wo con EXAMINATION: MR cervical spine wo con HISTORY: Cervical Radiculopathy COMPARISON: No relevant comparison available. TECHNIQUE: A variety of imaging planes and parameters were utilized for visualization of suspected pathology without and/or with intravenous Dotarem contrast based on examination type. FINDINGS: CRANIOCERVICAL AREA: Normal foramen magnum with no Chiari malformation. PARASPINAL AREA: Normal with no visible mass. BONES: No fracture, pars defect, or osseous lesion. CORD: Normal caliber, contour, and signal intensity. CERVICAL DISC LEVELS: C2-C3: Early degenerative disc disease is present without focal protrusion or neural impingement. C3-C4: Mild diffuse disc bulging without disc height reduction. Mild central canal and bilateral foramen narrowing. No significant facet arthropathy. C4-C5: Mild diffuse disc bulging and disc height reduction. Mild central canal and bilateral foramen narrowing. No significant facet arthropathy. C5-C6: Mild diffuse disc bulging and disc height reduction. Mild central canal and bilateral foramen narrowing. No significant facet arthropathy. C6-C7: Mild diffuse disc bulging and disc height reduction. Mild central canal and bilateral foramen narrowing. No significant facet arthropathy. C7-T1:. Mild diffuse disc bulging and disc height reduction. Mild central canal and bilateral foramen narrowing. No significant facet arthropathy. MR/MR cervical spine wo con IMPRESSION: 1. Multilevel mild degenerative disc disease resulting in mild foramen and mild central canal narrowing. No specific levels to account for patient's symptoms. Electronically authenticated by: KEEGAN BRUNO Date: 05/03/2024 16:01 Dictated By: Keegan Bruno M.D. Signed By: 05/03/24 1604 DD/ 00 TD/TT: Maintenance Analyst: Procedure Note Radiology, Radiologist, MD - 05/03/2024 [place] [address] Magnetic Resonance Report Signed Patient: BELGICA BARNETT AMR#: [id number] : 1990Acct:[id number] Age/Sex: 33 / FADM Date: 05/03/24 Loc: MRI Attending Dr: NAKIA HAMMOND Ordering Physician: NAKIA HAMMOND Date of Service: 05/03/24 Procedure(s): MR cervical spine wo con Accession Number(s): [id number] cc: EMERALD HAGEN ; NAKIA HAMMOND [place] [id number] Patient Name: BELGICA BARNETT MRN: [id number] date: 1990 Sex: F Assigned Patient Location: MRI Current Patient Location: MRI Accession/Order Number: [id number] Exam Date: 05/03/2024 14:00 Report Date: 05/03/2024 16:01 At the request of: NAKIA HAMMOND Procedure: MR cervical spine wo con EXAMINATION: MR cervical spine wo con HISTORY: Cervical Radiculopathy COMPARISON: No relevant comparison available. TECHNIQUE: A variety of imaging planes and parameters were utilized for visualization of suspected pathology without and/or with intravenousDotarem contrast based on examination type. FINDINGS: CRANIOCERVICAL AREA: Normal foramen magnum with no Chiari malformation. PARASPINAL AREA: Normal with no visible mass. BONES: No fracture, pars defect, or osseous lesion. CORD: Normal caliber, contour, and signal intensity. CERVICAL DISC LEVELS: C2-C3: Early degenerative disc disease is present without focal protrusionor neural impingement. C3-C4: Mild diffuse disc bulging without disc height reduction. Mildcentral canal and bilateral foramen narrowing. No significant facet arthropathy. C4-C5: Mild diffuse disc bulging and disc height reduction. Mild centralcanal and bilateral foramen narrowing. No significant facet arthropathy. C5-C6: Mild diffuse disc bulging and disc height reduction. Mild centralcanal and bilateral foramen narrowing. No significant facet arthropathy. C6-C7: Mild diffuse disc bulging and disc height reduction. Mild centralcanal and bilateral foramen narrowing. No significant facet arthropathy. C7-T1:. Mild diffuse disc bulging and disc height reduction. Mild central canal and bilateral foramen narrowing. No significant facet arthropathy. MR/MR cervical spine wo con IMPRESSION: 1. Multilevel mild degenerative disc disease resulting in mild foramen and mild central canal narrowing. No specific levels to account for patient'ssymptoms. Electronically authenticated by: KEEGAN BRUNO Date: 05/03/2024 16:01 Dictated By: Keegan Bruno M.D. Signed By:05/03/24 1604 DD/ 1601 TD/TT: Maintenance Analyst: Nakia JUSTICE IMG MRI PROCEDURES Final Resul t documented in this encounter Visit Diagnoses Not on filedocumented in this encounter Additional Health Concerns Active Problems Noted Date Diagnosed Date Patient on antidepressant monitoring plan 2023 Baseline PHQ-9 05/08/2023 documented as of this encounter Care Teams Motor Inspection Mechanic Relationship Specialty Start Date End Date Emerald Hagen MD [address] [address] PCP - Medical [place] [employer] 10/22/18 04/23/99 Emerald Hagen MD [address] [address] PCP - General Family Medicine 08/30/22 documented as of this encounter
--- OUTSIDE RECORDS SUMMARY | 2024-12-09 21:58 | XMS_ITS | Encounter Summary ---
Author Organization [facility] Address [address] [facility] [place] [address] Care Team Providers Care Sewer Pipe Press Operator Name Role Phone Emerald Sanchez MD Unavailable Emerald Sanchez MD Primary Care Provider [phone] Encounter Details Date Type Department Care Team (Late Contact Info) Description 02/07/2023 Abstract [facility] [address] [facility] 110 [place] [address] Emerald Sanchez MD [address] [facility] 110 [place] [address] Social History Tobacco Use Types Packs/Day Years Used Date Smoking Tobacco: Never Alcohol Use Standard Drinks/Week Comments Never 0 (1 standard drink = 0.6 oz pur e alcohol) Comments No Sex and Gender Information Value Date Recorded Sex Assigned at Not on file Legal Sex Female 7:29 PM EDT Gender Identity Not on file Sexual Orientation Not on file COVID-19 Exposure Response Date Recorded In the last 10 days, have yo u been in contact with someone who was confirmed or suspected to have Coronavirus/COVID-19? No / Unsure 01/16/2023 10:31 AM EDT documented as of this encounter Plan of Treatment Upcoming Encounters Date Type Department Care Team (Late st Contact Info) Description 12/13/2024 9:40 AM EDT Office Visit [facility] [address] [place] [address] Milton Duvall, DPM FACFAS [address] [facility] [place] [address] 12/26/2024 1:20 PM EDT Office Visit [facility] [place] [facility] [address] [place] [address] [place] [address] Jatin Cabrera MD 9082 [facility] [address] [address] documented as of this encounter Visit Diagnoses Not on filedocumented in this encounter Care Teams Sewer Pipe Press Operator Relationship Specialty Start Date End Date Emerald Sanchez MD [address] [facility] 110 [place] [address] PCP - Medical [place] Commercial 10/22/18 04/23/99 Emerald Sanchez MD [address] [facility] 110 [place], [place] [address] PCP - General Family Medicine 08/30/22 documented as of this encounter
--- OUTSIDE RECORDS SUMMARY | 2024-12-09 21:58 | XMS_ITS | Encounter Summary ---
Author Organization [facility] Address [address] [place] [address] Care Team Providers Care Events Traffic Controller Name Role Phone Emerald Sanchez MD Primary Care Provider [phone] Deena Osorio WATER CONSERVATIONIST Unavailable [phone] Darwin Starr DO Unavailable [phone] Source Comments In the event this information is protected by the Federal Confidentiality of Alcohol and Drug AbusePatient Records regulations: The Federal rules restrict any use of the information to criminally investigate or prosecute any alcohol or drug abuse patient.[facility] Encounter Details Date Type Department Care Team (Late st Contact Info) Description 06/29/2022 GI Preprocedure Call Ambulatory Surgery [address] [place] [address] [place] [address] [place] [address] Social History Tobacco Use Types Packs/Day Years Used Date Smoking Tobacco: Never Smokeless Tobacco: Never Alcohol Use Standard Drinks/Week Comments Yes 0 (1 standard drink = 0.6 oz pur e alcohol) socially Area Deprivation Index Answer Date Jose rded National Score (1-100), lower number is lower ri sk 62 05/27/2022 State Score (1-10), lower number is lower risk N ot on file 05/27/2022 Data from: https://www.neighborhoodatlas.medicine.[facility].edu/. Last address used for calculation [address] 05/27/2022 Comments No Sex and Gender Information Value Date Recorded Sex Assigned at Not on file Legal Sex Female 9:05 PM EDT Gender Identity Female 06/08/2021 8:30 AM EST Sexual Orientation Not on file documented as of this encounter Plan of Treatment Upcoming Encounters Date Type Department Care Team (Late st Contact Info) Description 12/30/2024 9:00 AM EDT Office Visit Gynecology [address] [place] [address] Emma Ying APRN.MAINFRAME ARCHITECT [address] [place] [address] Other specified dyspareunia documented as of this encounter Visit Diagnoses Not on filedocumented in this encounter Additional Health Concerns Infection Onset Date Last Indicated Resolved Time C. difficile 05/22/2024 05/22/2024 06/21/2024 8:51 PM EST documented as of this encounter Care Teams Events Traffic Controller Relationship Specialty Start Date End Date Emerald Sanchez MD [address] [facility] 110 [place] [address] PCP - General Family Medicine 03/27/19 Deena Osorio, WATER CONSERVATIONIST [address] [place] 110 [place] [address] Referring Family Medicine 04/03/24 Darwin Starr DO [address] [place] [address] Dr C[place]le [place], [place] [address] Referring Kaiawhina Kohanga Reo 07/02/24 documented as of this encounter
--- OUTSIDE RECORDS SUMMARY | 2024-12-09 21:58 | XMS_ITS | Encounter Summary ---
Author Organization [facility] Address [address] [facility] [place] [address] Care Team Providers Care Investment Consultant Name Role Phone Emerald Sanchez MD Unavailable Emerald Sanchez MD Primary Care Provider Encounter Details Date Type Department Care Team (Late Contact Info) Description 02/14/2023 Abstract [facility] [address] [facility] 110 [place] [address] Emerald Sanchez MD [address] [facility] 110 [place] [address] Social History Tobacco Use Types Packs/Day Years [...] EDT Office Visit [facility] [address] [facility] [place] [address] Milton Duvall, DPM FACFAS 368 [facility] [place] [address] 12/26/2024 1:20 PM EDT Office Visit [facility] [place] [facility] [address] [place] [address] [place] [address] Jatin Cabrera MD 55[address] [facility] [address] [address] documented as of this encounter Visit Diagnoses Not on filedocumented in this encounter Care Teams Investment Consultant Relationship Specialty Start Date End Date Emerald Sanchez MD [address] [facility] 110 [place] [address] PCP - Medical [place] Commercial 10/22/18 04/23/99 Emerald Sanchez MD [address] [facility] 110 [place], [place] [address] PCP - General Family Medicine 08/30/22 documented as of this encounter
--- OUTSIDE RECORDS SUMMARY | 2024-12-09 21:58 | XMS_ITS | Encounter Summary ---
Author Organization [facility] Address [address] [facility] [place] [address] Care Team Providers Care Scouts Name Role Phone Emerald Sanchez MD Unavailable Emerald Sanchez MD Primary Care Provider [phone] Encounter Details Date Type Department Care Team (Late Contact Info) Description 02/13/2023 Abstract [facility] [address] [facility] 110 [place] [address] Emerald Sanchez MD [address] [facility] 110 [place] [address] Social History Tobacco Use Types Packs/Day Years [...] EDT Office Visit [facility] [address] [facility] [place] [address] Milton Duvall, DPM FACFAS 368 [facility] [place] [address] 12/26/2024 1:20 PM EDT Office Visit [facility] [place] [facility] [address] [place] [address] [place] [address] Jatin Cabrera MD 1289 [facility] [address] [address] documented as of this encounter Visit Diagnoses Not on filedocumented in this encounter Care Teams Scouts Relationship Specialty Start Date End Date Emerald Sanchez MD [address] [facility] 110 [place] [address] PCP - Medical [place] Commercial 10/22/18 04/23/99 Emerald Sanchez MD [address] [facility] 110 [place], [place] [address] PCP - General Family Medicine 08/30/22 documented as of this encounter
--- OUTSIDE RECORDS SUMMARY | 2024-12-09 21:58 | XMS_ITS | Encounter Summary ---
Author Organization [facility] Address [address] [facility] [place] [address] Care Team Providers Care Strategy Intern Name Role Phone Emerald Hagen MD Unavailable Emerald Hagen MD Primary Care Provider [phone] Encounter Details Date Type Department Care Team (Late st Contact Info) Description 02/06/2023 Clinisync Result Encounter [facility] External Department Unsolicited [...] EDT Office Visit [facility] [address] [facility] [place] [address] Milton Duvall, DPM FACFAS 368 [place] [address] 12/26/2024 1:20 PM EDT Office Visit [facility] [address] [facility] 310 [place] [address] Jatin Cabrera MD [address] [place] [address] documented as of this encounter Procedures Procedure Name Priority Date/Time Associated Diagnosis Comments ECG 12-LEAD 02/06/2023 11:33 AM EDT documented in this encounter Results * ECG 12-LEAD (02/06/2023 11:33 AM EDT) Anatomical Region Laterality Modality Other 02/06/2023 11:3 3 AM EDT Narrative 02/06/2023 11:33 AM EDT The [address] [address] Electrocardiograph Report Signed Patient: BELGICA BARNETT MR#: [id number] : 1990 Acct:[id number] Age/Sex: 32 / F ADM Date: Loc: SURGOUT Attending Dr: Darwin Starr D.O. Ordering Physician: Darwin Starr D.O. Date of Service: 02/06/23 Procedure(s): ECG 12 lead Accession Number(s): [id number] cc: [facility] Test Date: 2023-02-06 Pat Name: BELGICA BARNETT Department: Room: - Gender: Female Grants Manager: : 1990 Requested By: EMERALD HAGEN Order Number: [id number] Reading MD: KEI POWELL Measurements Intervals [place] Rate: 70 P: 78 KS: 159 QRS: 72 QRSD: 88 T: 61 QT: 422 QTc: 458 Interpretive Statements SINUS RHYTHM WITH SINUS ARRHYTHMIA No previous ECG available for comparison Electronically Signed On 02-06-2023 20:04:15 EDT by KEI POWELL Dictated By: Kei Powell D.O. Signed By: 02/06/232003 DD/ 32 TD/TT: Sheriff'S Detective: Procedure Note Radiology, Radiologist, - 02/06/[address] [address] Electrocardiograph Report Signed Patient: BELGICA BARNETT AMR#: [id number] : 1990Acct:[id number] Age/Sex: 32 / FADM Date: Loc: SURGOUT Attending Dr: Darwin Starr D.O. Ordering Physician: Darwin Starr D.O. Date of Service: 02/06/23 Procedure(s): ECG 12 lead Accession Number(s): [id number] cc: [facility] Test Date: 2023-02-06 Pat Name: BELGICA BARNETT Department: Room: - Gender: Female Grants Manager: : 1990 Requested By: EMERALD HAGEN Order Number: [id number] Reading MD: KEI POWELL Measurements Intervals [place] Rate: 70 P: 78 [place]: 159 QRS: 72 QRSD: 88 T: 61 QT: 422 QTc: 458 Interpretive Statements SINUS RHYTHM WITH SINUS ARRHYTHMIA No previous ECG available for comparison Electronically Signed On 02-06-2023 20:04:15 EDT by KEI POWELL Dictated By: Kei Powell D.O. Signed By:02/06/232003 DD/ 32 TD/TT: Sheriff'S Detective: us Generic External Data Provider [facility] Final Result documented in this encounter Visit Diagnoses Not on filedocumented in this encounter Care Teams Strategy Intern Relationship Specialty Start Date End Date Emerald Hagen MD [address] [place] [address] [address] PCP - Medical [place] [employer] 10/22/18 04/23/99 Emerald Hagen MD [address] [facility] 110 [place] [address] PCP - General Family Medicine 08/30/22 documented as of this encounter
--- OUTSIDE RECORDS SUMMARY | 2024-12-09 21:58 | XMS_ITS | Patient Health Record ---
Author Organization [email or web address] Address [address] [place] [address] Care Team Providers Care Disability Attorney Name Role Phone Ralph, Radha Primary Care Provider Dagoberto Garsia Unavailable [phone] Kenya Peters Unavailable [phone] Allergies No Known Allergies Reason For Referral No Information Medications Medication SIG (Take, Route, Frequency, Duration) Notes Start Date End Date Status Trelegy Ellipta 100-62.5-25 MCG/ACT 1 puff Inhalation Once a day Active Singulair 10 MG 1 tablet Orally Once a day Active clomiPRAMINE HCl 50 MG 2 capsule at bedt estiven Orally Once a day; Duration: 30 days Active Propranolol HCl 10 MG 1 tablet Orally tw ice a day; Duration: 30 days 09/30/2024 Active Cyclobenzaprine HCl 5 MG TAKE 1 TABLET B Y MOUTH THREE TIMES A DAY FOR 14 DAYS Oral; Duration: 14 Days Active hydrOXYzine Pamoate 50 MG 1 capsule Oral twice a day; Duration: 30 days Active OLANZapine 2.5 MG 1 tablet Orally twic e a day; Duration: 30 days 12/06/2024 Active Escitalopram Oxalate 20 MG Oral; Duration: 30 Days Active tiZANidine HCl 4 MG 1 tablet every 6 hrs prn Orally Once a day Active Cephalexin 250 MG 1 capsule Orally Onc e a day Active Prazosin HCl 2 MG Oral; Duration: 30 Days Active buPROPion HCl ER (XL) 300 MG Oral; Duration: 30 Days Active Social History Tobacco Use: Social History [...] has it been since you last smoked? Grea ter than 10 years Problems Problem Type SNOMED Code ICD Code Onset Dates Problem Status W/U Status Risk Notes Problem Bipolar 1 disorder (455543865) Bipolar 1 disorder (F31.9) Active confirmed Problem Insomnia (951750317) Insomnia, unspecified type (G47.00) Active confirmed Problem Attention deficit hyperactivity disorder (381605834) ADHD (attention deficit hyperactivity disorder), combined type (F90.2) Active confirmed Problem Posttraumatic stress disorder (50170370) PTSD (post-traumatic stress disorder) (F43.10) Active confirmed Problem Moderate recurrent major depression (82348975) Moderate episode of recurrent major depressive disorder (F33.1) Active confirmed Problem Obsessive-compuls mike disorder (143557802) Obsessive-compuls mike disorder, unspecified type (F42.9) Active confirmed Problem Generalized anxiety disorder (90298569) Anxiety, generalized (F41.1) Active confirmed Vital Signs Heart Rate 102 /min 12/06/2024 Respiratory Rate 20 /min 12/06/2024 Oximetry 98 % 12/06/2024 Blood pressure diastolic 93 mm Hg 12/06/2024 Height 62 in 12/06/2024 Blood pressure systolic 143 mm Hg 12/06/2024 Weight 197.0 lbs 12/06/2024 BMI 36.03 kg/m2 12/06/2024 Encounters Encounter Location Date Provider Diagnosis [facility] [address] [place] [address] 09/06/2024 Radha [place] [address] [place] [address] 09/27/2024 [place] [address] [place] [address] 11/06/2024 [place] [address] [place] [address] 11/06/2024 [facility] [address] [place] [address] 11/07/2024 [place] [address] [place] [address] 11/08/2024 [facility] [address] [place] [address] 11/11/2024 [facility] [address] [place] [address] 11/12/2024 [facility] [address] [place] [address] 11/12/2024 [place] [address] [place] [address] 11/13/2024 [place] [address] [place] [address] 11/15/2024 [place] [address] [place] [address] 12/05/2024 [facility] [address] [address] 09/04/2024 Radha Ralph Bipolar 1 disorder F31.9 and Anxiety, generalized F41.[address] [address] 09/13/2024 Radha Ralph Obsessive-compulsive disorder, unspecified type F42.9 ; Bipolar 1 disorder F31.9 ; Moderate episode of recurrent major depressive disorder F33.1 ; ADHD (attention deficit hyperactivity disorder), combined type F90.2 and Insomnia, unspecified type G47.[address] [address] 09/30/2024 Radha Ralph Bipolar 1 disorder F31.9 ; Anxiety, generalized F41.1 ; Insomnia, unspecified type G47.00 and ADHD (attention deficit hyperactivity disorder), combined type F90.[address] [address] 10/28/2024 Radha Rosas Insomnia, unspecifie d type G47.00 and Bipolar 1 disorder F31.[address] [address] 12/06/2024 Radha Rosas Bipolar 1 disorder F31.9 Assessments Encounter Date Diagnosis (ICD Code) Assessment Notes Treatment Notes Treatment Clinical Notes Section Notes 09/04/2024 Bipolar 1 disorder (ICD-10 - F31.9) restart vraylar 1.5mg daily given 4 weeks from sample stock. states she has not taken vraylar 4.5 mg for awhile d/t cost would like disability paperwork filled out for leave of absence from work, she states she currently works from home for the [employer]. Based on DSM V, this patient meets the criteria for the diagnosis of: _ . Bipolar 1 Disorder . Recommended treatment is: _ Recommended treatment for Bipolar disorder includes FDA approved and OFF label medications: second generation antipsychotics and mood stabilizers. Discussed life threatening side effect of Lamotrigine. Pt is to monitor for new skin rashes or sensation of a sunburn or itchiness or redness, mouth sores or sores in mucus membranes, and call provider immediately and or go to ER, and stop the medication. Second generation antipsychotic medications can cause headache, drowsiness, agitation, dizziness, nausea, or extrapyramidal symptoms such as tremors, muscle spasms, slowness of movement or jerking of muscles. . The patient verbalizes understanding with all questions answered thoroughly and is in agreement with treatment plan. . . Continue current treatment Tolerating meds well, compliant Call for problems . GOALS: . Maintain medication regimen _Improve mood stability _Improve anxiety control _Improve social and interpersonal functioning . Informed consent obtained: YES, we discussed the diagnosis/diagnoses , the treatment options, treatment(s) recommended vs. no treatment. We discussed risks and benefits of treatment options, treatment recommendations vs. no treatment. . Currently at low risk for self harm. Denies ongoing feelings of hopelessness. Denies ongoing suicidal ideation, intent or plan in session. . 09/04/2024 Anxiety, generalized (ICD-10 - F41.1) continue current medication regimen denies refills wants to contine Lexapro 30mg only been on since July 2024 Discussed risks and side effects of medication including possible nausea, headache, upset stomach, diarrhea, constipation, anxiety, irritability, and sexual dysfunction. Most mild side effects improve over 4-6 weeks of use. Please monitor for worsening of symptoms, especially suicidal ideations or morbid thoughts, and call office and or go to the emergency department immediately if this occurs. Patient verbalized understanding, in agreement with plan. f/u i 1 month and PRN 09/13/2024 Bipolar 1 disorder (ICD-10 - F31.9) increased vryalar to 3mg daily x 2 weeks then increase dose to 4.5mg was on 4.5mg and stopped d/t cost. FMLA paperwork being completed off work until next f/u 10-02-24 Patient will continue current treatment plan. Patient [...] consented to the start/continuation of the treatment. 09/13/2024 Obsessive-compuls mike disorder, unspecified type (ICD-10 - F42.9) increased medication to 100mg daily. continue therapy weekly f/u in 3 weeks and PRN 09/30/2024 Bipolar 1 disorder (ICD-10 - F31.9) Refills for vraylar FMLA paperwork to be completed May consider going to ER for pysch eval for possible 1 S admit. Denies SI/HI today but does have intrusive thoughts Patient will continue current treatment plan. Patient verbally acknowledges understanding instructions including medication education and has no further questions comments or concerns at this time. . Follow in 1 Month . Recommended treatment for Bipolar disorder includes FDA approved and OFF label medications: second generation antipsychotics and mood stabilizers. Discussed life threatening side effect of Lamotrigine. Pt is to monitor for new skin rashes or sensation of a sunburn or itchiness or redness, mouth sores or sores in mucus membranes, and call provider immediately and or go to ER, and stop the medication. Second generation antipsychotic medications can cause headache, [...] consented to the start/continuation of the treatment. 09/30/2024 Anxiety, generalized (ICD-10 - F41.1) Continue medication, potential side effects were discussed as well as proper administration of medication. Pt verbalizes understanding. Pt is aware not to stop medication suddenly and to come to office to be weaned down, abrupt discontinuation can cause withdrawal symptoms. Stable mood today, no c/o SI/HI, if feelings occur pt to call 911/ER. Discussed coping mechanisms such as exercise, group therapy, and counseling. f/u in 1 month and PRN 10/28/2024 Bipolar 1 disorder (ICD-10 - F31.9) Increased Vraylar to 6mg daily was given 4 weeks from sample stock Patient will continue current treatment plan. Patient [...] consented to the start/continuation of the treatment. 10/28/2024 Insomnia, unspecified type (ICD-10 - G47.00) refills fro Quetiapine 50mg QHS good sleep hygiene discussed. Avoid stimulants such as tv, electronic, exercises before bed. Relaxation techniques also discussed. pt enc to take 5mg to 10 mg melatonin. If symptoms persist will discuss prescription sleep aides. 12/06/2024 Bipolar 1 disorder (ICD-10 - F31.9) medications were discontinued while at rehab in [place]. will trial Olanzapine 2.5mg BID Patient will [...] consented to the start/continuation of the treatment. 09/13/2024 Moderate episode of recurrent major depressive disorder (ICD-10 - F33.1) decrease Lexapro to 20mg daily start Wellbutrin 150mg ER daily Will start patient on *Wellbutrin 150mg ER daily today. Discussed risks and side effects of medication including possible nausea, headache, upset stomach, diarrhea, constipation, anxiety, irritability, and sexual dysfunction. Most mild side effects improve over 4-6 weeks of use. Please monitor for worsening of symptoms, especially suicidal ideations or morbid thoughts, and call office and or go to the emergency department immediately if this occurs. Patient verbalized understanding, in agreement with plan. 09/30/2024 Insomnia, unspecified type (ICD-10 - G47.00) Refilled Quetiapine good sleep hygiene discussed. Avoid stimulants such as tv, electronic, exercises before bed. Relaxation techniques also discussed. pt enc to take 5mg to 10 mg melatonin. If symptoms persist will discuss prescription sleep aides 09/30/2024 ADHD (attention deficit hyperactivity disorder), combined type (ICD-10 - F90.2) stopped adderal while off work on FMLA refilled Clonidine ADHD stable, patient denies unfavorable side effects such as CP, stomach aches, or sleep difficulties. Weight is stable. OARRS reviewed. Patient enjoys being in school. Continue current regimen. Refills will be sent at todays visit. Follow up in 3 months and PRN. 09/13/2024 ADHD (attention deficit hyperactivity disorder), combined type (ICD-10 - F90.2) ADHD stable, patient denies unfavorable side effects such as CP, stomach aches, or sleep difficulties. Weight is stable. OARRS reviewed. Patient enjoys being in school. Continue current regimen. Refills will be sent at todays visit. Follow up in 3 months and PRN. 09/13/2024 Insomnia, unspecified type (ICD-10 - G47.00) good sleep hygiene discussed. Avoid stimulants such as tv, electronic, exercises before bed. Relaxation techniques also discussed. pt enc to take 5mg to 10 mg melatonin. If symptoms persist will discuss prescription sleep aides Prescribed Seroquel 50mg at bedtime 09/13/2024 Other 12/06/2024 Other Body Mass Index : Care Instructions material was published, Body Mass Index: Care Instructions material was printed Plan Of Treatment Next Appt Details Provider Name:Radha sal, 12/27/2024 10:15:00 AM, [address] [place], [address], Insurance Providers Payer Name Payer Address Payer Phone Subscriber Number Group Number Insured Name Patient Relationship to Insured Coverage Start Date Coverage End Date [id number] [address] [address] [place] [address] [id number] ORION HARPER Self - patient is the insured MEDICAL [facility] [address] [place] [address] [id number] ORION HARPER Self - patient is the insured 5 Medical (General) History Medical History History ICD Code HTN DEPRESSIION ANXIETY PTSD ADHD OBESE ASTHMA excessive sweating digestive problems Surgical History Surgery Date(Month/Year) ANKLE SURGERY 05/2024 LAP AT CSECTION GALLBLADDER 02/2023 CSECTION X 3
--- OUTSIDE RECORDS SUMMARY | 2024-12-09 21:58 | XMS_ITS | Encounter Summary ---
Author Organization [facility] Address [address] [facility] [place] [address] Care Team Providers Care Conference Reservationist Name Role Phone Emerald Sanchez MD Unavailable Emerald Sanchez MD Primary Care Provider [phone] Encounter Details Date Type Department Care Team (Late st Contact Info) Description 03/29/2023 Abstract [facility] [address] [facility] 110 [place] [address] Emerald Sanchez MD [address] [facility] 110 [place] [address] Social History Tobacco Use Types Packs/Day Years [...] EDT Office Visit [facility] [address] [place] [address] Milton Duvall, DPM FACFAS [address] [facility] [place], [place] [address] 12/26/2024 1:20 PM EDT Office Visit [facility] [address] [place] [address] [place] [address] Jatin Cabrera MD [address] [facility] [address] [address] documented as of this encounter Visit Diagnoses Not on filedocumented in this encounter Care Teams Conference Reservationist Relationship Specialty Start Date End Date Emerald Sanchez MD [address] [address] PCP - Medical [place] [employer] 10/22/18 04/23/99 Emerald Sanchez MD [address] [address] PCP - General Family Medicine 08/30/22 documented as of this encounter
--- OUTSIDE RECORDS SUMMARY | 2024-12-09 21:58 | XMS_ITS | Encounter Summary ---
Author Organization [facility] Address [address] [facility] [place] [address] Care Team Providers Care Talent Solutions Manager Name Role Phone Emerald Sanchez MD Unavailable Emerald Sanchez MD Primary Care Provider [phone] Encounter Details Date Type Department Care Team (Late st Contact Info) Description 01/22/2024 [facility] [address] [facility] 110 [place] [address] Emerald Sanchez MD [address] [place] [address] [place] [address] Social History Tobacco Use Types Packs/Day Years [...] often do you attend chur ch or gnosticist services? Never 04/18/2023 Do you belong to any clubs o r organizations such as congregation groups, unions, fraternal or athletic groups, or [...] and heating? Not hard at all 04/18/2023 [facility] - Occupational [...] place to sleep or slept in a jail (including now)? No 04/18/2023 Comments No Sex [...] EDT Office Visit [facility] [address] [place] [address] Milton Duvall, DPM FACFAS [address] [place] [address] 12/26/2024 1:20 PM EDT Office Visit [facility] [address] [facility] [address] [place] [address] Jatin Cabrera MD [address] [facility] [address] [address] documented as of this encounter Goals Goal [...] documented as of this encounter Care Teams Talent Solutions Manager Relationship Specialty Start Date End Date Emerald Sanchez MD [address] [place] [address] [place], [place] [address] PCP - Medical [place] [employer] 10/22/18 04/23/99 Emerald Sanchez MD [address] [place] [address] [place] [address] PCP - General Family Medicine 08/30/22 documented as of this encounter
--- OUTSIDE RECORDS SUMMARY | 2024-12-09 21:58 | XMS_ITS | Encounter Summary ---
Author Organization [facility] Address [address] [facility] [place] [address] Care Team Providers Care Ordnance Officer Name Role Phone Emerald Sanchez MD Unavailable Emerald Sanchez MD Primary Care Provider [phone] Encounter Details Date Type Department Care Team (Late st Contact Info) Description 07/09/2024 Abstract [facility] [address] [facility] 110 [place] [address] Emerald Sanchez MD [address] [place] [address] [place] [address] Social History Tobacco Use Types Packs/Day Years [...] week 05/09/2024 How often do you attend moravian or denominational serv ices? Never 05/09/2024 Do you belong to any clubs o r organizations such as moravian groups, unions, fraternal or athletic groups, or [...] Date Recorded Patient Health Questionnaire-2 Score 0 07/04/2024 [facility] - Occupational [...] place to sleep or slept in a penitentiary (including now)? No 04/18/2023 Housing Stability Vital Sign Answer Celso e Recorded In the last 12 months, was t here a time when you were not able to pay the mortgage or rent on time? No 05/09/2024 In the past 12 months, how m any times have you moved where you were living? 0 05/09/2024 At any time in the past 12 m [facility], were you homeless or living in a penitentiary (including now)? No 05/09/2024 Comments No Sex [...] EDT Office Visit [facility] [address] [place] [address] Milton Duvall, DPM FACFAS [address] [facility] [place] [address] 12/26/2024 1:20 PM EDT Office Visit [facility] [address] [place] [address] [place] [address] Jatin Cabrera MD [address] [facility] [address] [id number] documented as of this encounter Goals Goal [...] documented as of this encounter Care Teams Ordnance Officer Relationship Specialty Start Date End Date Emerald Sanchze MD [address] [facility] 110 [place] [address] PCP - Medical [place] [employer] 10/22/18 04/23/99 Emerald Sanchez MD [address] [facility] 110 [place] [address] PCP - General Family Medicine 08/30/22 documented as of this encounter
--- OUTSIDE RECORDS SUMMARY | 2024-12-09 21:58 | XMS_ITS | Encounter Summary ---
Author Organization [facility] Address [address] [facility] [place] [address] Care Team Providers Care Land Sales Agent Name Role Phone Emerald Sanchez MD Unavailable Emerald Sanchez MD Primary Care Provider [phone] Encounter Details Date Type Department Care Team (Late Contact Info) Description 11/03/2022 Abstract [facility] [address] [facility] 110 [place] [address] Emerald Sanchez MD [address] [facility] 110 [place] [address] Social History Tobacco Use Types Packs/Day Years Used Date Smoking Tobacco: Never Assessed Comments Unknown Sex and Gender Information Value Date Recorded Sex Assigned at Not on file Legal Sex Female 7:29 PM EDT Gender Identity Not on file Sexual Orientation Not on file documented as of this encounter Plan of Treatment Upcoming Encounters Date Type Department Care Team (Late st Contact Info) Description 12/13/2024 9:40 AM EDT Office Visit [facility] [address] [place] [address] Milton Duvall, DPM FACFAS [address] [place] [address] 12/26/2024 1:20 PM EDT Office Visit [facility] [address] [facility] [address] [place] [address] Jatin Cabrera MD [address] [facility] [address] [place] [place] [address] documented as of this encounter Visit Diagnoses Not on filedocumented in this encounter Care Teams Land Sales Agent Relationship Specialty Start Date End Date Emerald Sanchez MD [address] [address] PCP - Medical [place] [employer] 10/22/18 04/23/99 Emerald Sanchez MD [address] [address] PCP - General Family Medicine 08/30/22 documented as of this encounter
--- OUTSIDE RECORDS SUMMARY | 2024-12-09 21:58 | XMS_ITS | Encounter Summary ---
Author Organization [facility] Address [address] [facility] [place] [address] Care Team Providers Care Leave Specialist Name Role Phone Emerald Sanchez MD Unavailable Emerald Sanchez MD Primary Care Provider [phone] Encounter Details Date Type Department Care Team (Late st Contact Info) Description 06/10/2024 Abstract [facility] [address] [facility] 110 [place] [address] Emerald Sanchez MD [address] [place] [address] [place] [address] Social History Tobacco Use Types Packs/Day Years [...] week 05/09/2024 How often do you attend mormonism or gnosticist serv ices? Never 05/09/2024 Do you belong to any clubs o r organizations such as mormonism groups, unions, fraternal or athletic groups, or [...] and heating? Not hard at all 05/09/2024 [facility] - [facility] Stress Questionnaire Answer Date [...] in a residential (including now)? No 04/18/2023 Housing Stability Vital Sign Answer Celso e Recorded In the last 12 months, was t here a time when you were not able to pay the mortgage or rent on time? No 05/09/2024 In the past 12 months, how m any times have you moved where you were living? 0 05/09/2024 At any time in the past 12 m [facility], were you homeless or living in a residential (including now)? No 05/09/2024 Comments No Sex [...] EDT Office Visit [facility] [address] [place] [address] Milton Duvall, DPM FACFAS [address] [facility] [address] 12/26/2024 1:20 PM EDT Office Visit [facility] [address] [place] [address] [place] [address] Jatin Cabrera MD [address] [facility] [address] [place] [address] [place] [address] documented as of this encounter Goals Goal [...] documented as of this encounter Care Teams Leave Specialist Relationship Specialty Start Date End Date Emerald Sanchez MD [address] [facility] 110 [place] [address] PCP - Medical [place] [employer] 10/22/18 04/23/99 Emerald Sanchez MD [address] [facility] 110 [place] [address] PCP - General Family Medicine 08/30/22 documented as of this encounter
--- OUTSIDE RECORDS SUMMARY | 2024-12-09 21:58 | XMS_ITS | Encounter Summary ---
Author Organization [facility] Address [address] [place] [address] Care Team Providers Care Merchandise Examiner Name Role Phone Emerald Sanchez MD Primary Care Provider [phone] Deena Osorio CALL BOX WIRER Unavailable [phone] Darwin Starr DO Unavailable [phone] Source Comments In the event this information is protected by the Federal Confidentiality of Alcohol and Drug AbusePatient Records regulations: The Federal rules restrict any use of the information to criminally investigate or prosecute any alcohol or drug abuse patient.[facility] Encounter Details Date Type Department Care Team (Late st Contact Info) Description 11/08/2024 Patient Msg HOSP MAIN H060 [address] [place] [address] Provider, Ccf Sign up to manage your digestive symptoms in between visits, covered by insurance Social History Tobacco Use Types Packs/Day Years Used Date Smoking Tobacco: Never Smokeless Tobacco: Never Alcohol Use Standard Drinks/Week Comments Yes 4 (1 standard drink = 0.6 oz pur e alcohol) socially PHQ-2 Answer Date Recorded PHQ-2 score 2 04/24/2024 Area Deprivation Index Answer Date Jose rded National Score (1-100), lower number is lower ri sk 65 10/17/2022 State Score (1-10), lower number is lower risk 4 10/17/2022 Data from: https://www.neighborhoodatlas.medicine.[facility].edu/. Last address used for calculation [address] 10/17/2022 Comments No Sex and Gender [...] EDT Office Visit Gynecology [address] [place] [address] Emma Ying APRN.CANVAS MARKER [address] [place] [address] Other specified dyspareunia documented as of this encounter Goals Goal Patient Goal Type Associated Problems Recent Progress Patient-Stated? Author Blood Pressure < 140/90 Blood Pressure 112/76( 025 1:00 PM EDT) No Solo Mora MD documented as of this encounter Visit Diagnoses Not on filedocumented in this encounter Care Teams Merchandise Examiner Relationship Specialty Start Date End Date Emerald Sanchez MD [address] [facility] 110 [place] [address] PCP - General Family Medicine 03/27/19 Deena Osorio APRN [address] [place] [address] [place] [address] Referring Family Medicine 04/03/24 Darwin Starr DO [address] [place] [address] Dr Carlyle Mancuso, [place] [id number] Referring Cashier Supervisor 07/02/24 documented as of this encounter
--- OUTSIDE RECORDS SUMMARY | 2024-12-09 21:58 | XMS_ITS | Encounter Summary ---
Author Organization [facility] Address [address] [facility] [place] [address] Care Team Providers Care Rhythmic Gymnastics Coach Name Role Phone Emerald Sanchez MD Unavailable Emerald Sanchez MD Primary Care Provider [phone] Encounter Details Date Type Department Care Team (Late st Contact Info) Description 01/29/2024 Abstract [facility] [address] [facility] 110 [place] [phone] Emerald Sanchez MD [address] [place] [address] [place] [address] Social History Tobacco Use Types Packs/Day Years [...] often do you attend chur ch or synagogue services? Never 04/18/2023 Do you belong to [...] and heating? Not hard at all 04/18/2023 [facility] - Occupational Stress [...] place to sleep or slept in a custodial (including now)? No 04/18/2023 Comments No Sex [...] EDT Office Visit [facility] [address] [place] [address] Milton Duvall, DPM FACFAS [address] [place] [address] 12/26/2024 1:20 PM EDT Office Visit [facility] [address] [facility] [address] [place] [address] Jatin Cabrera MD [address] [facility] [address] [address] documented as of this encounter Goals Goal [...] documented as of this encounter Care Teams Rhythmic Gymnastics Coach Relationship Specialty Start Date End Date Emerald Sanchez MD [address] [place] [address] [place], [place] [id number] PCP - Medical [place] [employer] 10/22/18 04/23/99 Emerald Sanchez MD [address] [place] [address] [place] [address] PCP - General Family Medicine 08/30/22 documented as of this encounter
--- OUTSIDE RECORDS SUMMARY | 2024-12-09 21:58 | XMS_ITS | Encounter Summary ---
Author Organization [facility] Address [address] [facility] [place] [address] Care Team Providers Care Division Commander Name Role Phone Emerald Sanchez MD Unavailable Emerald Sanchez MD Primary Care Provider [phone] Encounter Details Date Type Department Care Team (Late st Contact Info) Description 02/07/2023 Orders Only [facility] 112 [facility] 110 [place] [address] A, Unknown Practice [address] [place], [place] [address] Social History Tobacco Use Types Packs/Day Years [...] EDT Office Visit [facility] [address] [facility] [place] [address] Milton Duvall, DPM FACFAS [address] [facility] [place] [address] 12/26/2024 1:20 PM EDT Office Visit [facility] [place] [facility] [address] [place] [address] [place] [address] Jatin Cabrera MD [address] [facility] [address] Simeon [facility] [place], [place] [id number] documented as of this encounter Procedures Procedure Name Priority Date/Time Associated Diagnosis Comments ELECTROCARDIOGRAM REPORT Routine 023 11:05 AM EDT SCANNED LABS Routine 02/06/2023 9:19 AM EDT documented in this encounter Results * Electrocardiogram Report (02/06/2023 11:05 AM EDT) us Unknown Practice A IN CLINIC/BEDSIDE ORDERABLES Final Result * SCANNED LABS (02/06/2023 9:19 AM EDT) us Unknown Practice A LAB CHG PERFORMABLES Final Re sult documented in this encounter Visit Diagnoses Not on filedocumented in this encounter Care Teams Division Commander Relationship Specialty Start Date End Date Emerald Sanchez MD [address] [facility] 110 [place] [address] PCP - Medical [place] [employer] 10/22/18 04/23/99 Emerald Sanchez MD [address] [facility] 110 [place] [address] PCP - General Family Medicine 08/30/22 documented as of this encounter
--- OUTSIDE RECORDS SUMMARY | 2024-12-09 21:58 | XMS_ITS | Encounter Summary ---
Author Organization [facility] Address [address] [facility] [place] [address] Care Team Providers Care Overedge Machine Operator Name Role Phone Emerald Sanchez MD Unavailable Emerald Sanchez MD Primary Care Provider [phone] Encounter Details Date Type Department Care Team (Late st Contact Info) Description 02/08/2023 Orders Only [facility] 112 [facility] 110 [place] [address] A, Unknown Practice [address] [place], [place] [address] Social History Tobacco Use Types Packs/Day Years [...] EDT Office Visit [facility] [address] [facility] [place] [address] Milton Duvall, DPM FACFAS 368 [facility] [place] [address] 12/26/2024 1:20 PM EDT Office Visit [facility] [place] [facility] [address] [place] [address] [place] [address] Jatin Cabrera MD [address] [facility] [address] [place] [id number] documented as of this encounter Procedures Procedure Name Priority Date/Time Associated Diagnosis Comments SCANNED LABS Routine 02/08/2023 9:18 AM EDT documented in this encounter Results * SCANNED LABS (02/08/2023 9:18 AM EDT) us Unknown Practice A LAB CHG PERFORMABLES Final Re sult documented in this encounter Visit Diagnoses Not on filedocumented in this encounter Care Teams Overedge Machine Operator Relationship Specialty Start Date End Date Emerald Sanchez MD [address] [facility] 110 [place] [address] PCP - Medical [place] [employer] 10/22/18 04/23/99 Emerald Sanchez MD [address] [address] PCP - General Family Medicine 08/30/22 documented as of this encounter
--- OUTSIDE RECORDS SUMMARY | 2024-12-09 21:58 | XMS_ITS | Encounter Summary ---
Author Organization [facility] Address [address] [place] [address] Care Team Providers Care Retail Sales Teammate Name Role Phone Emerald Hagen MD Unavailable Emerald Hagen MD Primary Care Provider [phone] Encounter Details Date Type Department Care Team (Late st Contact Info) Description 03/06/2024 Clinisync Result Encounter [facility] External Department Unsolicited [...] week 04/18/2023 How often do you attend [facility] or scientologist services? Never 04/18/2023 Do you belong to any clubs o r organizations such as amish groups, unions, fraternal or athletic groups, or [...] and heating? Not hard at all 04/18/2023 [facility] - [...] place to sleep or slept in a prison (including now)? No 04/18/2023 Comments No Sex [...] EDT Office Visit [facility] [address] [place] [address] Milton Duvall, DPM FACFAS 368 [place] [address] 12/26/2024 1:20 PM EDT Office Visit [facility] [address] [facility] 310 [place] [address] Jatin Cabrera MD [address] [facility] [address] [address] documented as of this encounter Goals Goal Patient Goal Type Associated Problems Recent Progress Patient-Stated? Author Help patient manage antidepressant medication Care Plan Patient on antidepressant monitoring plan No Emerald Hagen MD Baseline PHQ-9 Care Plan Baseline PHQ-9 No Emerald Hagen MD documented as of this encounter Procedures Procedure Name Priority Date/Time Associated Diagnosis Comments XR ANKLE RT MIN 3V 03/06/2024 7: 20 AM EST documented in this encounter Results * XR ANKLE RT MIN 3V (03/06/2024 7:20 AM EST) Anatomical Region Laterality Modality Other 03/06/2024 7:20 AM EST Narrative 03/06/2024 7:23 [place] [address] XRay Report Signed Patient: BELGICA BARNETT MR#: [id number] : 1990 Acct:[id number] Age/Sex: 33 / F ADM Date: 03/04/24 Loc: EC Attending Dr: Laurie Navas M.D. Ordering Physician: Laurie Navas M.D. Date of Service: 03/04/24 Procedure(s): XR ankle RT min 3V Accession Number(s): [id number] cc: EMERALD HAGEN ; Laurie Navas M.D. The [place] [address] Patient Name: BELGICA BARNETT MRN: [id number] date: 1990 Sex: F Assigned Patient Location: Current Patient Location: Accession/Order Number: [id number] Exam Date: 03/04/2024 08:02 Report Date: 03/06/2024 07:20 At the request of: LAURIE NAVAS Procedure: XR ankle RT min 3V PROCEDURE: XR ankle RT min 3V COMPARISON: 01/10/2024 HISTORY: RIGHT ANKLE PAIN FINDINGS: BONES:New calcific density identified along the medial aspect of the medial malleolus measuring 4 x 1 mm and size, avulsion fracture is suspected. No dislocation. SOFT TISSUES:Negative. No visible soft tissue swelling. EFFUSION:None visible. OTHER: Negative. XR/XR ankle RT min 3V IMPRESSION: Suspected 4 mm avulsion fracture medial aspect of the medial malleolus Electronically authenticated by: JACKSON BUTLER Date: 03/06/2024 07:20 Dictated By: Jackson Butler M.D. Signed By: 03/06/24722 DD/ 9 TD/TT: Oxygen Equipment Aide: Procedure Note Radiology, Radiologist, MD - 03/06/2024 The [place] [id number] XRay Report Signed Patient: BELGICA BARNETT AMR#: [id number] : 1990Acct:[id number] Age/Sex: 33 / FADM Date: 03/04/24 Loc: EC Attending Dr: Laurie Navas M.D. Ordering Physician: Laurie Navas M.D. Date of Service: 03/04/24 Procedure(s): XR ankle RT min 3V Accession Number(s): [id number] cc: EMERALD HAGEN ; Laurie Navas M.D. [place] [id number] Patient Name: BELGICA BARNETT MRN: [facility]:[id number] date: 1990 Sex: F Assigned Patient Location: Current Patient Location: Accession/Order Number: [id number] Exam Date: 03/04/2024 08:02 Report Date: 03/06/2024 07:20 At the request of: LAURIE NAVAS Procedure: XR ankle RT min 3V PROCEDURE: XR ankle RT min 3V COMPARISON: 01/10/2024 HISTORY: RIGHT ANKLE PAIN FINDINGS: BONES:New calcific density identified along the medial aspect of themedial malleolus measuring 4 x 1 mm and size, avulsion fracture is suspected. No dislocation. SOFT TISSUES:Negative. No visible soft tissue swelling. EFFUSION:None visible. OTHER: Negative. XR/XR ankle RT min 3V IMPRESSION: Suspected 4 mm avulsion fracture medial aspect of the medial malleolus Electronically authenticated by: JACKSON BUTLER Date: 03/06/2024 07:20 Dictated By: Jackson Butler M.D. Signed By:03/06/24722 DD/ 9 TD/TT: Oxygen Equipment Aide: us Generic External Data Provider [facility] Final Result documented in this encounter Visit Diagnoses Not on filedocumented in this encounter Additional Health Concerns Active Problems Noted Date Diagnosed Date Patient on antidepressant monitoring plan 2023 Baseline PHQ-9 05/08/2023 documented as of this encounter Care Teams Retail Sales Teammate Relationship Specialty Start Date End Date Emerald Hagen MD [address] [place] [address] [phone] (work) PCP - Medical [place] [employer] 10/22/18 04/23/99 Emerald Hagen MD [address] [place] [address] PCP - General Family Medicine 08/30/22 documented as of this encounter
--- OUTSIDE RECORDS SUMMARY | 2024-12-09 21:58 | XMS_ITS | Encounter Summary ---
Author Organization [facility] Address [address] [facility] [place] [address] Care Team Providers Care Escort Vehicle Driver Name Role Phone Emerald Sanchez MD Unavailable Emerald Sanchez MD Primary Care Provider [phone] Encounter Details Date Type Department Care Team (Late st Contact Info) Description 05/20/2024 Abstract [facility] [address] [facility] 110 [place] [address] Emerald Sanchez MD [address] [place] [address] [place] [address] Social History Tobacco Use Types Packs/Day Years [...] week 05/09/2024 How often do you attend pentecostalism or sabianism serv ices? Never 05/09/2024 Do you belong to any clubs o r organizations such as pentecostalism groups, unions, fraternal or athletic groups, or [...] and heating? Not hard at all 05/09/2024 [facility] - Occupational Stress Questionnaire Answer Date Recorded [...] to sleep or slept in a senior care (including now)? No 04/18/2023 Housing Stability Vital Sign Answer Celso e Recorded In the last 12 months, was t here a time when you were not able to pay the mortgage or rent on time? No 05/09/2024 In the past 12 months, how m any times have you moved where you were living? 0 05/09/2024 At any time in the past 12 m [facility], were you homeless or living in a senior care (including now)? No 05/09/2024 Comments No Sex [...] EDT Office Visit [facility] [address] [place] [address] Milton Duvall, DPM FACFAS 368 [facility] [place] [address] 12/26/2024 1:20 PM EDT Office Visit [facility] [address] [place] [address] [place] [address] Jatin Cabrera MD [address] [facility] [address] Simeon [address] [place] [address] documented as of this encounter Goals Goal [...] documented as of this encounter Care Teams Escort Vehicle Driver Relationship Specialty Start Date End Date Emerald Sanchez MD [address] [facility] 110 [place] [address] PCP - Medical [place] [employer] 10/22/18 04/23/99 Emerald Sanchez MD [address] [facility] 110 [place] [address] PCP - General Family Medicine 08/30/22 documented as of this encounter
--- OUTSIDE RECORDS SUMMARY | 2024-12-09 21:58 | XMS_ITS | Encounter Summary ---
Author Organization [facility] Address [address] [place] [address] Care Team Providers Care Inside Meter Tester Name Role Phone Emerald Sanchez MD Unavailable Emerald Sanchez MD Primary Care Provider [phone] Encounter Details Date Type Department Care Team (Late st Contact Info) Description 12/28/2022 Abstract [facility] [address] [facility] [address] [place] [address] [place] [address] Adriana Galaviz LPN [address] [facility] [place] [address] [place] [address] Social History Tobacco Use Types Packs/Day Years Used Date Smoking Tobacco: Never Alcohol Use Standard Drinks/Week Comments Never 0 (1 standard drink = 0.6 oz pur e alcohol) Comments Unknown Sex and Gender Information Value Date Recorded Sex Assigned at Not on file Legal Sex Female 7:29 PM EDT Gender Identity Not on file Sexual Orientation Not on file documented as of this encounter Plan of Treatment Upcoming Encounters Date Type Department Care Team (Late st Contact Info) Description 12/13/2024 9:40 AM EDT Office Visit [facility] [address] [place] [address] Milton Duvall, DPM FACFAS 368 [facility] [place] [address] 12/26/2024 1:20 PM EDT Office Visit [facility] [address] [place] [address] [place] [address] Jatin Cabrera MD [address] [phone] documented as of this encounter Visit Diagnoses Not on filedocumented in this encounter Care Teams Inside Meter Tester Relationship Specialty Start Date End Date Emerald Sanchez MD [address] [address] PCP - Medical [place] [employer] 10/22/18 04/23/99 Emerald Sanchez MD [address] [address] PCP - General Family Medicine 08/30/22 documented as of this encounter
--- OUTSIDE RECORDS SUMMARY | 2024-12-09 21:58 | XMS_ITS | Encounter Summary ---
Author Organization [facility] Address [address] [facility] [place] [address] Care Team Providers Care Nozzle Operator Name Role Phone Emerald Sanchez MD Unavailable Emerald Sanchez MD Primary Care Provider [phone] Encounter Details Date Type Department Care Team (Late Contact Info) Description 02/14/2023 Abstract [facility] 112 [facility] 110 [place] [address] Emerald Sanchez MD [address] [facility] 110 [place] [address] Social History Tobacco Use Types Packs/Day Years [...] EDT Office Visit [facility] 368 [facility] [place] [address] Milton Duvall, DPM FACFAS 368 [facility] [place] [address] 12/26/2024 1:20 PM EDT Office Visit [facility] [place] [facility] [address] [place] [address] [place] [address] Jatin Cabrera MD 8682 [facility] [address] [address] documented as of this encounter Visit Diagnoses Not on filedocumented in this encounter Care Teams Nozzle Operator Relationship Specialty Start Date End Date Emerald Sanchez MD [address] [facility] 110 [place] [address] PCP - Medical [place] [employer] 10/22/18 04/23/99 Emerald Sanchez MD [address] [facility] 110 [place], [place] [address] PCP - General Family Medicine 08/30/22 documented as of this encounter
--- OUTSIDE RECORDS SUMMARY | 2024-12-09 21:58 | XMS_ITS | Encounter Summary ---
Author Organization [facility] Address [address] [place] [address] Care Team Providers Care Veneer Department Manager Name Role Phone Emerald Sanchez MD Primary Care Provider [phone] Deena Osorio FLORAL ARRANGER Unavailable [phone] Darwin Starr DO Unavailable [phone] Source Comments In the event this information is protected by the Federal Confidentiality of Alcohol and Drug AbusePatient Records regulations: The Federal rules restrict any use of the information to criminally investigate or prosecute any alcohol or drug abuse patient.[facility] Encounter Details Date Type Department Care Team (Late st Contact Info) Description 09/27/2024 Patient Msg [facility] [address] [place] [address] Provider, Ccf CPP CONSULT Social History Tobacco Use Types Packs/Day Years [...] is lower risk 4 10/17/2022 Data from: https://www.neighborhoodatlas.medicine.[facility].edu/. Last address used for calculation [address] [...] EDT Office Visit Gynecology [address] [place] [address] Emma Ying APRN.COLLISION ESTIMATOR [address] [place] [address] Other specified dyspareunia documented as of this encounter Goals Goal Patient Goal Type Associated Problems Recent Progress Patient-Stated? Author Blood Pressure < 140/90 Blood Pressure 112/76( 025 1:00 PM EDT) No Solo Mora MD documented as of this encounter Visit Diagnoses Not on filedocumented in this encounter Care Teams Veneer Department Manager Relationship Specialty Start Date End Date Emerald Sanchez MD [address] [place] [address] [place] [address] PCP - General Family Medicine 03/27/19 Deena Osorio, FLORAL ARRANGER [address] [place] 110 [place] [address] Referring Family Medicine 04/03/24 Darwin Starr DO [address] [place] [address] Referring Services Delivery Driver 07/02/24 documented as of this encounter
--- OUTSIDE RECORDS SUMMARY | 2024-12-09 21:58 | XMS_ITS | Encounter Summary ---
Author Organization [facility] Address [address] [facility] [place] [address] Care Team Providers Care Surveillance System Monitor Name Role Phone Emerald Sanchez MD Unavailable Emerald Sanchez MD Primary Care Provider [phone] Encounter Details Date Type Department Care Team (Late st Contact Info) Description 05/20/2024 Abstract [facility] [address] [facility] 110 [place] [address] Emerald Sanchez MD [address] [place] [address] [place] [address] Social History Tobacco Use Types Packs/Day Years [...] week 05/09/2024 How often do you attend yarsanism or mosque serv ices? Never 05/09/2024 Do you belong to any clubs o r organizations such as yarsanism groups, unions, fraternal [...] and heating? Not hard at all 05/09/2024 [facility] - Occupational Stress Questionnaire Answer Date [...] health care facility (including now)? No 04/18/2023 Housing Stability Vital Sign Answer Celso e Recorded In the last 12 months, was t here a time when you were not able to pay the mortgage or rent on time? No 05/09/2024 In the past 12 months, how m any times have you moved where you were living? 0 05/09/2024 At any time in the past 12 m [facility], were you homeless or living in a [place] health care facility (including now)? No 05/09/2024 Comments No Sex [...] EDT Office Visit [facility] 368 [place] [address] Milton Duvall, DPM FACFAS 368 [facility] [place] [address] 12/26/2024 1:20 PM EDT Office Visit [facility] [address] [place] [address] [place] [address] Jatin Cabrera MD [address] [facility] [address] [place] [address] documented as of this encounter Goals Goal [...] as of this encounter Care Teams Surveillance System Monitor Relationship Specialty Start Date End Date Emerald Sanchez MD [address] [facility] 110 [place] [address] PCP - Medical [place] [employer] 10/22/18 04/23/99 Emerald Sanchez MD [address] [facility] 110 [place] [address] PCP - General Family Medicine 08/30/22 documented as of this encounter
--- OUTSIDE RECORDS SUMMARY | 2024-12-09 21:58 | XMS_ITS | Encounter Summary ---
Author Organization [facility] Address [address] [facility] [place] [address] Care Team Providers Care Medical Management Trainer Name Role Phone Emerald Sanchez MD Unavailable Emerald Sanchez MD Primary Care Provider Encounter Details Date Type Department Care Team (Late Contact Info) Description 02/14/2023 Abstract [facility] [address] [facility] 110 [place] [address] Emerald Sanchez MD [address] [facility] 110 [place] [address] Social History Tobacco Use Types Packs/Day Years [...] EDT Office Visit [facility] [address] [facility] [place] [address] Milton Duvall, DPM FACFAS 368 [facility] [place] [address] 12/26/2024 1:20 PM EDT Office Visit [facility] [place] [facility] [address] [place] [address] [place] [address] Jatin Cabrera MD 7516 [facility] [address] [address] documented as of this encounter Visit Diagnoses Not on filedocumented in this encounter Care Teams Medical Management Trainer Relationship Specialty Start Date End Date Emerald Sanchez MD [address] [facility] 110 [place] [address] PCP - Medical [place] Commercial 10/22/18 04/23/99 Emerald Sanchez MD [address] [facility] 110 [place], [place] [phone] PCP - General Family Medicine 08/30/22 documented as of this encounter
--- OUTSIDE RECORDS SUMMARY | 2024-12-09 21:58 | XMS_ITS | Encounter Summary ---
Author Organization [facility] Address [address] [facility] [place] [address] Care Team Providers Care Lining Ironer Name Role Phone Emerald Sanchez MD Unavailable Emerald Sanchez MD Primary Care Provider [phone] Encounter Details Date Type Department Care Team (Late st Contact Info) Description 03/29/2023 Abstract [facility] [address] [facility] 110 [place] [address] Emerald Sanchez MD [address] [facility] 110 [place] [address] Social History Tobacco Use Types Packs/Day Years [...] EDT Office Visit [facility] POD 368 [place] [address] Milton Duvall, DPM FACFAS 368 [facility] [place], [place] [address] 12/26/2024 1:20 PM EDT Office Visit [facility] [address] [place] [address] [place] [address] Jatin Cabrera MD 4421 [facility] [address] [address] documented as of this encounter Visit Diagnoses Not on filedocumented in this encounter Care Teams Lining Ironer Relationship Specialty Start Date End Date Emerald Sanchez MD [address] [address] PCP - Medical [place] Commercial 10/22/18 04/23/99 Emerald Sanchez MD [address] [address] PCP - General Family Medicine 08/30/22 documented as of this encounter
--- OUTSIDE RECORDS SUMMARY | 2024-12-09 21:58 | XMS_ITS | Encounter Summary ---
Author Organization [facility] Address [address] [place] [address] Care Team Providers Care Food And Beverage Controller Name Role Phone Emerald Sanchez MD Unavailable Emerald Sanchez MD Primary Care Provider [phone] Encounter Details Date Type Department Care Team (Late st Contact Info) Description 06/13/2024 Abstract [facility] P[facility] 368 [place] [address] Milton Duvall, DPM FACFAS 368 [facility] [place] [address] Social History Tobacco Use Types Packs/Day Years [...] week 05/09/2024 How often do you attend scientology or mormonism serv ices? Never 05/09/2024 Do you belong to any clubs o r organizations such as scientology groups, unions, fraternal or athletic groups, or [...] and heating? Not hard at all 05/09/2024 [facility] - Occupational Stress Questionnaire Answer [...] any time in the past 12 m [facility], were you homeless or living [...] EDT Office Visit [facility] POD 368 [place] [address] Milton Duvall, DPM FACFAS 368 [facility] [place] [address] 12/26/2024 1:20 PM EDT Office Visit [facility] [address] [place] [address] [place] [address] Jatin Cabrera MD [address] [facility] [place] [address] [place] [address] documented as of this encounter Goals Goal [...] documented as of this encounter Care Teams Food And Beverage Controller Relationship Specialty Start Date End Date Emerald Sanchez MD [address] [place] [facility] 110 [place] [address] PCP - Medical [place] Commercial 10/22/18 04/23/99 Emerald Sanchez MD [address] [facility] 110 [place] [address] PCP - General Family Medicine 08/30/22 documented as of this encounter
--- OUTSIDE RECORDS SUMMARY | 2024-12-09 21:58 | XMS_ITS | Encounter Summary ---
Author Organization [facility] Address [address] [facility] [place] [address] Care Team Providers Care Hot Saw Operator Name Role Phone Emerald Sanchez MD Unavailable Emerald Sanchez MD Primary Care Provider [phone] Encounter Details Date Type Department Care Team (Late st Contact Info) Description 04/03/2023 Abstract [facility] [address] [facility] 110 [place] [address] Emerald Sanchez MD [address] [facility] 110 [place] [address] Social History Tobacco Use Types Packs/Day Years [...] EDT Office Visit [facility] 368 [place] [address] Milton Duvall, DPM FACFAS [address] [facility] A [place], [place] [address] 12/26/2024 1:20 PM EDT Office Visit [facility] [address] [place] [address] [place] [address] Jatin Cabrera MD 3263 [facility] [address] [address] documented as of this encounter Visit Diagnoses Not on filedocumented in this encounter Care Teams Hot Saw Operator Relationship Specialty Start Date End Date Emerald Sanchez MD [address] [address] PCP - Medical [place] Commercial 10/22/18 04/23/99 Emerald Sanchez MD [address] [address] PCP - General Family Medicine 08/30/22 documented as of this encounter
--- OUTSIDE RECORDS SUMMARY | 2024-12-09 21:58 | XMS_ITS | Encounter Summary ---
Author Organization [facility] Address [address] [facility] [place] [address] Care Team Providers Care Layaway Clerk Name Role Phone Emerald Sanchez MD Unavailable Emerald Sanchez MD Primary Care Provider [phone] Encounter Details Date Type Department Care Team (Late st Contact Info) Description 02/06/2023 Abstract [facility] [address] [facility] 110 [place] [address] Sandy Hammond, [place] [address] [facility] 110 [place] [address] Social History Tobacco Use Types Packs/Day Years Used Date Smoking Tobacco: Never Tobacco Cessation:Counseling Given: Not Answered Alcohol Use Standard Drinks/Week Comments Never 0 [...] EDT Office Visit [facility] 368 [place] [address] Milton Duvall, DPM FACFAS 368 [facility] [place] [address] 12/26/2024 1:20 PM EDT Office Visit [facility] [place] [facility] [address] [place] [address] [place] [address] Jatin Cabrera MD 6137 [facility] [address] [id number] documented as of this encounter Visit Diagnoses Not on filedocumented in this encounter Care Teams Layaway Clerk Relationship Specialty Start Date End Date Emerald Sanchez MD [address] [facility] 110 [place] [address] PCP - Medical [place] Commercial 10/22/18 04/23/99 Emerald Sanchez MD [address] [facility] 110 [place] [address] PCP - General Family Medicine 08/30/22 documented as of this encounter
--- OUTSIDE RECORDS SUMMARY | 2024-12-09 21:58 | XMS_ITS | Encounter Summary ---
Author Organization [facility] Address [address] [facility] [place] [address] Care Team Providers Care Edge Bander Hand Name Role Phone Emerald Sanchez MD Unavailable Emerald Sanchez MD Primary Care Provider Encounter Details Date Type Department Care Team (Late st Contact Info) Description 03/29/2024 Abstract [facility] [address] [facility] 110 [place] [address] Emerald Sanchez MD [address] [place] [address] [place] [address] Social History Tobacco Use Types Packs/Day Years [...] often do you attend chur ch or lutheran services? Never 04/18/2023 Do you belong to any clubs o r organizations such as adventism groups, unions, fraternal or athletic groups, or [...] and heating? Not hard at all 04/18/2023 [facility] Occupat ional [facility] - Occupational Stress [...] in a alf (including now)? No 04/18/2023 Comments No Sex [...] EDT Office Visit [facility] 368 [place] [address] Milton Duvall, DPM FACFAS 368 [place] [address] 12/26/2024 1:20 PM EDT Office Visit [facility] [address] [facility] 310 [place] [address] Jatin Cabrera MD 3535 [facility] [address] [address] documented as of this encounter Goals Goal [...] documented as of this encounter Care Teams Edge Bander Hand Relationship Specialty Start Date End Date Emerald Sanchez MD [address] [place] [address] [place], [place] [address] PCP - Medical [place] Commercial 10/22/18 04/23/99 Emerald Sanchez MD [address] [place] [address] [place] [address] PCP - General Family Medicine 08/30/22 documented as of this encounter
--- OUTSIDE RECORDS SUMMARY | 2024-12-09 21:58 | XMS_ITS | Patient Health Record ---
Author Organization [facility] Address [address] [place] [address] Care Team Providers Care Public Address Technician Name Role Phone Keegan Trujillo Unavailable [phone] yanickDoriswyattRosita hartman Unavailable Results Component Value Reference Range Notes SCC- ANKLE 3 VIEW RIGHT 7361 0 Reviewed date:04/30/2024 10:39:15 AM Interpretation: Performing Lab: Notes/Report: MRI : Ankle W/[place] Contrast Rig ht - 38972 Reviewed date:06/26/2024 09:07:42 AM Interpretation: Performing Lab: Notes/Report: Reason For Referral Reason APPROVED MMOH....... PLEASE OBTAIN AUTHORIZATION FOR RIGHT ANKLE MRI Diagnosis 1 Sprain of anterior t alofibular ligament of right ankle, initial encounter (S93.491A) Referral Organization [facility] Referring Provider First Name Keegan Referring Provider Last Name Trujillo Referring Provider Speciality Orthopedic Surgery Referred Organization [facility] Referred Address [place], [place], Procedure 1 MRI Joint Lower Ext w/o Dye ([address]) General Notes Marisel Patterson 2023 07:03:26 AM > pending on [employer]. Service Order:[id number], Ayleen Mata 03/05/2024 10:20:23 AM >APPROVAL LETTER IN CHART, Marisel Patterson 03/05/2024 12:56:10 PM > APPROVED Auth #[id number], Valid 03/05/2024 - 04/19/2024, auth scanned in, faxed to Joana Mancuso Monica 03/06/2024 07:52:35 AM > FAXED ORDER Referral Priority Urgent Medications Medication SIG (Take, Route, Fr equency, Duration) Notes Start Date End Date Status diclofenac sodium 75 mg 1 tab(s) orally 2 times a day for 30 day(s) 03/19/2024 Active Xanax Active Adderall Active baclofen Active Vraylar Active Social History Tobacco Use: Social History Observation Description Date Details (start date - stop date) Never Smoker NA - NA AUDIT-C (Standard) Question Answer Notes Did you have a drink containing alcohol in the p ast year? No Points 0 Interpretation Negative Tobacco Control (Standard) Question Answer Notes Tobacco use: Nonsmoker Problems Problem Type SNOMED Code ICD Code Onset Dates Problem Status W/U Status Risk Notes Problem [id number] Sprain of anterior talofibular ligament of right ankle, initial encounter (S93.491A) Active confirmed Vital Signs Height 5'2 in 03/04/2024 Weight 184 lbs 03/04/2024 BMI 33.65 03/04/2024 Encounters Encounter Location Date Provider Diagnosis [facility] Office [address] [place] [address] 01/15/2024 [place] Sprain of anterior talofibular ligament of right ankle, initial encounter S93.491A [facility] [address] [place] [address] 01/22/2024 [place] Sprain of anterior talofibular ligament of right ankle, initial encounter S93.491A [facility] Office [facility] [place] [place] [address] 02/05/2024 Keegan Trujillo Sprain of other ligament of right ankle, subsequent encounter S93.491D [facility] Office [facility] [place] [place] [address] 03/04/2024 Keegan Trujillo Sprain of other ligament of right ankle, subsequent encounter S93.491D [facility] [place] [address] [place] [address] 03/18/2024 Keegan Trujillo Assessments Encounter Date Diagnosis (ICD Code) Assessment Notes Treatment Notes Treatment Clinical Notes Section Notes 01/15/2024 Sprain of anterior talofibular ligament of right ankle, initial encounter (ICD-10 - S93.491A) Right ankle sprain 01/22/2024 Sprain of anterior talofibular ligament of right ankle, initial encounter (ICD-10 - S93.491A) 02/05/2024 Sprain of other ligament of right ankle, subsequent encounter (ICD-10 - S93.491D) 03/04/2024 Sprain of other ligament of right ankle, subsequent encounter (ICD-10 - S93.491D) 01/15/2024 Other For the patient 's right ankle sprain I have discussed with her that she can be weightbearing as tolerated. She has somewhat been doing that at home with her crutches already. I have ordered a tall walking boot to help with pain-free ambulation for activities of daily living. She does have 2 jobs, one she works from home and the other she has to wear steel toe boots. I have written her off of work for her second job. We will see her back in 1 week to reassess her progress. Right ankle sprain 01/22/2024 Other For the patient 's ankle sprain it does not appear that she is ready to wean into a normal shoe just. I have recommended continuing to ambulate with the walking boot. If she is feeling better in the next few weeks she can start to gradually wean into a supportive shoe. I have instructed her to start working on ROM exercises at home. I have also discussed appropriate dosages of ibuprofen and patient voiced understanding. We will see her back in 2 weeks. She will have to stay off of her second job at this time as she cannot ambulate without pain in a steel toed boot. 02/05/2024 Other For her ankle sprain I have recommended physical therapy. She has 2 jobs her primary job she works at home which she is continue to work. 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 She will follow-up in 4 weeks. If pain persist we will repeat x-rays of her ankle. Import medication 03/04/2024 Other Given her persistent symptoms despite rest, immobilization, nonweightbearing, anti-inflammatori es and physical therapy I recommended an MRI scan to evaluate for possible osteochondral injury. She will follow-up once the study is complete. Import medication Plan Of Treatment Pending Test Test Name Order Date SCC- PT/OT EVAL AND TREAT 3X/WEEK FOR 4 WEEKS 02/05/2024 Insurance Providers Payer Name Payer Address Payer Phone Subscriber Number Group Number Insured Name Patient Relationship to Insured Coverage Start Date Coverage End Date [facility] [address] [place] [address] [phone] [id number] ORION HARPER Self - patient is the insured
--- OUTSIDE RECORDS SUMMARY | 2024-12-09 21:58 | XMS_ITS | Encounter Summary ---
Author Organization [facility] Address [address] [place] [address] Care Team Providers Care Ordained Minister Name Role Phone Emerald Sanchez MD Primary Care Provider [phone] Deena Osorio JEWELRY ENGRAVER Unavailable [phone] Darwin Starr DO Unavailable [phone] Source Comments In the event this information is protected by the Federal Confidentiality of Alcohol and Drug AbusePatient Records regulations: The Federal rules restrict any use of the information to criminally investigate or prosecute any alcohol or drug abuse patient.[facility] Reason for Visit * Reason Comments Abstract CPP - NPAF abstract Encounter Details Date Type Department Care Team (Late st Contact Info) Description 10/07/2024 Abstract Gynecology [address] [place] [address] Emma Ying APRN.PIPING DESIGNER [facility] [facility] [place], [place] [id number] Abstract (CPP - NPAF abstract/) Social History Tobacco Use Types Packs/Day Years [...] is lower risk 4 10/17/2022 Data from: https://www.neighborhoodatlas.medicine.[facility]/. Last address used for calculation [address] [...] EDT Office Visit Gynecology [address] [place] [address] Emma Ying APRN.PIPING DESIGNER [address] [place], [place] [id number] Other specified dyspareunia documented as of this encounter Goals Goal Patient Goal Type Associated Problems Recent Progress Patient-Stated? Author Blood Pressure < 140/90 Blood Pressure 112/76( 025 1:00 PM EDT) No Solo Mora MD documented as of this encounter Visit Diagnoses Not on filedocumented in this encounter Care Teams Ordained Minister Relationship Specialty Start Date End Date Emerald Sanchez MD [address] [facility] 110 [place] [address] PCP - General Family Medicine 03/27/19 Deena Osorio APRN [address] [place] 110 [place] [address] Referring Family Medicine 04/03/24 Darwin Starr DO [address] [facility] [place] [address] Referring Business Applications Analyst 07/02/24 documented as of this encounter
--- OUTSIDE RECORDS SUMMARY | 2024-12-09 21:58 | XMS_ITS | Encounter Summary ---
Author Organization [facility] Address [address] [place] [address] Care Team Providers Care Supply Clerk Name Role Phone Emerald Sanchez MD Unavailable Emerald Sanchez MD Primary Care Provider [phone] Encounter Details Date Type Department Care Team (Late st Contact Info) Description 07/26/2024 Abstract [facility] POPULATION [facility] [address] [place] [address] Gifty Mireles LPN 112 [facility] 110 [place] [address] Social History Tobacco Use Types Packs/Day Years [...] week 05/09/2024 How often do you attend congregational or restoration serv ices? Never 05/09/2024 Do you belong to any clubs o r organizations such as congregational groups, unions, fraternal or athletic groups, or [...] Recorded Patient Health Questionnaire-2 Score 0 07/04/2024 [facility] of Occupat ional [facility] - Occupational Stress Questionnaire Answer Date [...] any time in the past 12 m [facility], were you homeless or living in a [...] EDT Office Visit [facility] [address] [facility] [place] [address] Milton Duvall, DPM FACFAS 368 [facility] [address] 12/26/2024 1:20 PM EDT Office Visit [facility] [address] [place] [address] [place] [address] Jatin Cabrera MD 5319 [facility] [address] [address] documented as of this encounter Goals Goal [...] documented as of this encounter Care Teams Supply Clerk Relationship Specialty Start Date End Date Emerald Sanchez MD [address] [address] [address] PCP - Medical [place] Commercial 10/22/18 04/23/99 Emerald Sanchez MD [address] [facility] 110 [place] [address] PCP - General Family Medicine 08/30/22 documented as of this encounter
--- OUTSIDE RECORDS SUMMARY | 2024-12-09 21:58 | XMS_ITS | Encounter Summary ---
Author Organization [facility] Address [address] [place] [address] Care Team Providers Care District Manager Name Role Phone Emerald Sanchez MD Unavailable Emerald Sanchez MD Primary Care Provider [phone] Encounter Details Date Type Department Care Team (Late st Contact Info) Description 12/27/2022 Orders Only [facility] 110 [place] [address] A, Unknown Practice [address] [place], [place] [address] Social History Tobacco Use Types Packs/Day Years [...] EDT Office Visit [facility] 368 [place] [address] Milton Duvall, DPM FACFAS 368 [facility] [place] [address] 12/26/2024 1:20 PM EDT Office Visit [facility] [address] [place] [address] [place] [address] Jatin Cabrera MD [address] [place] [address] [place] [address] documented as of this encounter Procedures Procedure Name Priority Date/Time Associated Diagnosis Comments CT HEAD WO IV CONTRAST Routine 12/27/2022 3:13 PM EDT documented in this encounter Results * CT head wo IV contrast (12/27/2022 3:13 PM EDT) Anatomical Region Laterality Modality Head, Neck Computed Tomogra phy us Unknown Practice A IMG CT PROCEDURES Final Resul t documented in this encounter Visit Diagnoses Not on filedocumented in this encounter Care Teams District Manager Relationship Specialty Start Date End Date Emerald Sanchez MD [address] [address] PCP - Medical [place] Commercial 10/22/18 04/23/99 Emerald Sanchez MD [address] [address] PCP - General Family Medicine 08/30/22 documented as of this encounter
--- OUTSIDE RECORDS SUMMARY | 2024-12-09 21:58 | XMS_ITS | Encounter Summary ---
Author Organization [facility] Address [address] [place] [address] Care Team Providers Care Grading Supervisor Name Role Phone Emerald Sanchez MD Unavailable Emerald Sanhcez MD Primary Care Provider [phone] Encounter Details Date Type Department Care Team (Late st Contact Info) Description 12/12/2022 Orders Only [facility] 112 [facility] 110 [place] [address] A, Unknown Practice [address] [place], [place] [address] Social History Tobacco Use Types Packs/Day Years [...] EDT Office Visit [facility] 368 [place] [address] Milton Duvall, DPM FACFAS 368 [facility] [place] [address] 12/26/2024 1:20 PM EDT Office Visit [facility] [address] [place] [address] [place] [address] Jatin Cabrera MD [address] [place] [address] [place] [address] documented as of this encounter Procedures Procedure Name Priority Date/Time Associated Diagnosis Comments US PELVIS TRANSVAGINAL Routine 12/10/2022 2:11 PM EDT documented in this encounter Results * US pelvis transvaginal (12/10/2022 2:11 PM EDT) Anatomical Region Laterality Modality Pelvis Ultrasound us Unknown Practice A IMG US PROCEDURES Final Resul t documented in this encounter Visit Diagnoses Not on filedocumented in this encounter Care Teams Grading Supervisor Relationship Specialty Start Date End Date Emerald Sanchez MD 112 [facility] 110 [place] [address] PCP - Medical [place] Commercial 10/22/18 04/23/99 Emerald Sanchez MD 112 [place] [facility] 110 [place] [address] PCP - General Family Medicine 08/30/22 documented as of this encounter
--- OUTSIDE RECORDS SUMMARY | 2024-12-09 21:58 | XMS_ITS | Encounter Summary ---
Author Organization [facility] Address [address] [facility] [place] [address] Care Team Providers Care Lead Handler Name Role Phone Emerald Sanchez MD Unavailable Emerald Sanchez MD Primary Care Provider Encounter Details Date Type Department Care Team (Late st Contact Info) Description 09/02/2024 Abstract [facility] [address] [facility] 110 [place] [address] Emerald Sanchez MD [address] [place] [address] [place] [address] Social History Tobacco Use Types Packs/Day Years [...] week 05/09/2024 How often do you attend hinduism or alevism serv ices? Never 05/09/2024 Do you belong to any clubs o r organizations such as hinduism groups, unions, fraternal or athletic groups, or [...] Recorded Patient Health Questionnaire-2 Score 0 09/02/2024 [facility] of Occupat ional Health - [...] in a mcfp (including now)? No 04/18/2023 Housing Stability Vital Sign Answer Celso e Recorded In the last 12 months, was t here a time when you were not able to pay the mortgage or rent on time? No 05/09/2024 In the past 12 months, how m any times have you moved where you were living? 0 05/09/2024 At any time in the past 12 m [facility], were you homeless or living in a mcfp (including now)? No 05/09/2024 Comments No Sex [...] EDT Office Visit [facility] [address] [address] Milton Duvall, DPM FACFAS 368 [facility] [place] [address] 12/26/2024 1:20 PM EDT Office Visit [facility] [address] [facility] 310 [place] [address] Jatin Cabrera MD [address] [address] documented as of this encounter [...] as of this encounter Care Teams Lead Handler Relationship Specialty Start Date End Date Emerald Sanchez MD [address] [facility] 110 [place] [address] PCP - Medical [place] Commercial 10/22/18 04/23/99 Emerald Sanchez MD [address] [facility] 110 [place] [address] PCP - General Family Medicine 08/30/22 documented as of this encounter
--- OUTSIDE RECORDS SUMMARY | 2024-12-09 21:58 | XMS_ITS | Encounter Summary ---
Author Organization [facility] Address [address] [facility] [place] [address] Care Team Providers Care Heel Coverer Machine Operator Name Role Phone Emerald Sanchez MD Unavailable Emerald Sanchez MD Primary Care Provider [phone] Encounter Details Date Type Department Care Team (Late st Contact Info) Description 08/19/2024 Abstract [facility] [address] [facility] 110 [place] [phone] Emerald Sanchez MD [address] [place] [address] [place] [address] Social History Tobacco Use Types Packs/Day Years [...] week 05/09/2024 How often do you attend buddhist or synagogue serv ices? Never 05/09/2024 Do you belong to any clubs o r organizations such as buddhist groups, unions, fraternal [...] Recorded Patient Health Questionnaire-2 Score 0 08/01/2024 [facility] of Occupat ional Health - [...] place to sleep or slept in a correction (including now)? No 04/18/2023 Housing Stability Vital [...] time in the past 12 m [facility], were you homeless or living in a correction (including now)? No 05/09/2024 Comments No Sex [...] EDT Office Visit [facility] [address] [facility] [place] [address] Milton Duvall, DPM FACFAS 368 [facility] [place] [place] [address] 12/26/2024 1:20 PM EDT Office Visit [facility] [address] [place] [address] [place] [address] Jatin Cabrera MD 5350 [facility] [address] [id number] documented as of this encounter Goals Goal [...] documented as of this encounter Care Teams Heel Coverer Machine Operator Relationship Specialty Start Date End Date Emerald Sanchez MD [address] [facility] 110 [place] [address] PCP - Medical [place] Commercial 10/22/18 04/23/99 Emerald Sanchez MD [address] [facility] 110 [place] [address] PCP - General Family Medicine 08/30/22 documented as of this encounter
--- OUTSIDE RECORDS SUMMARY | 2024-12-09 21:58 | XMS_ITS | Encounter Summary ---
Author Organization [facility] Address [address] [facility] [place] [address] Care Team Providers Care Military Police Officer Name Role Phone Emerald Sanchez MD Unavailable Emerald Sanchez MD Primary Care Provider [phone] Encounter Details Date Type Department Care Team (Late st Contact Info) Description 01/30/2024 Abstract [facility] [address] [facility] 110 [place] [address] Emerald Sanchez MD [address] [place] [address] [place] [address] Social History Tobacco Use Types Packs/Day Years [...] often do you attend chur ch or congregation services? Never 04/18/2023 Do you belong to any clubs o r organizations such as episcopalian groups, unions, fraternal or athletic groups, or [...] and heating? Not hard at all 04/18/2023 [facility] of Occupat ional Health - Occupational Stress [...] EDT Office Visit [facility] 368 [place] [address] Milton Duvall, DPM FACFAS 368 [place] [address] 12/26/2024 1:20 PM EDT Office Visit [facility] [address] [facility] 310 [place] [address] Jatin Cabrera MD 1619 [facility] [address] [address] documented as of this encounter Goals Goal [...] documented as of this encounter Care Teams Military Police Officer Relationship Specialty Start Date End Date Emerald Sanchez MD [address] [place] [address] [place], [place] [phone] PCP - Medical [place] Commercial 10/22/18 04/23/99 Emerald Sanchez MD [address] [place] [address] [place] [address] PCP - General Family Medicine 08/30/22 documented as of this encounter
--- OUTSIDE RECORDS SUMMARY | 2024-12-09 21:59 | XMS_ITS | Encounter Summary ---
Author Organization [facility] Address [address] [place] [address] Care Team Providers Care Performance Makeup Artist Name Role Phone Emerald Sanchez MD Primary Care Provider [phone] Deena Osorio NATIONAL ACCOUNT REPRESENTATIVE Unavailable [phone] Darwin Starr DO Unavailable [phone] Source Comments In the event this information is protected by the Federal Confidentiality of Alcohol and Drug AbusePatient Records regulations: The Federal rules restrict any use of the information to criminally investigate or prosecute any alcohol or drug abuse patient.[facility] Reason for Referral * Diagnostic Procedure Only (Routine) - Closed Specialty Diagnoses / Procedures Referred By Contac t Referred To Contact XR IMAGING Diagnoses Chronic idiopathic constipation Procedures XR ABDOMEN 2V ROUTINE SUPINE W UPRIGHT/DECUB/CTL RADIOLOGIC EXAM ABDOMEN 2 VIEWS Iliana Hendrickson PA-C [address] [place] [address] Phone: tel: fax: [place] [address] Referral ID Status Reason Start Date Expiration Date V isits Requested Visits Authorized [id number] Closed Auto-Generate d Referral 07/09/2024 08/07/2025 1 1 Encounter Details Date Type Department Care Team (Late st Contact Info) Description 07/05/2024 Get Medical Advice Gastroenterology [address] [place] [address] [place] [address] [place] [phone] Office visit Social History Tobacco Use Types Packs/Day Years [...] is lower risk 4 10/17/2022 Data from: https://www.neighborhoodatlas.[facility]/. Last address used for calculation [address] 10/17/2022 Comments No Sex and Gender Information Value Date Recorded Sex Assigned at Not on file Legal Sex Female 9:05 PM EDT Gender Identity Female 06/08/2021 8:30 AM EST Sexual Orientation Not on file documented as of this encounter Miscellaneous Notes * Telephone Encounter - Radha Soriano RN - 07/08/2024 9:44 AM EDT Iliana, Patient is experiencing diarrhea, recently had ankle surgery and was on pain medication. At her colonoscopy, she had stool in her entire colon. KUB order pended for review. Thank you, Radha Soriano RN * Telephone Encounter - Radha Soriano RN - 07/05/2024 12:17 PM EDT Colonoscopy 05/22/24 Dr. Peter Impression: - The examined portion of the [...] scheduled. - Discharge patient to home (ambulatory). Radha Soriano RN documented in this encounter Plan of Treatment Upcoming Encounters Date Type Department Care Team (Late st Contact Info) Description 12/30/2024 9:00 AM EDT Office Visit Gynecology [address] [place] [address] Emma Ying APRN.EMBOSSING PRESS OPERATOR APPRENTICE [address] [place] [address] Other specified dyspareunia documented as of this encounter Goals Goal Patient Goal Type Associated Problems Recent Progress Patient-Stated? Author Blood Pressure < 140/90 Blood Pressure 112/76( 025 1:00 PM EDT) No Solo Mora MD documented as of this encounter Results * XR ABDOMEN 2V ROUTINE SUPINE W UPRIGHT/DECUB/CTL (07/10/2024 11:30 AM EDT) Anatomical Region Laterality Modality Abdomen Other 07/10/2024 11:3 0 AM EDT Impressions 07/13/2024 10:07 AM EDT IMPRESSION: Mild to moderate colonic stool content Hose Operator: MINAL Transcribe Date/Time: Jul 13 2024 9:59A Dictated by : BUNNY LIANG MD This examination was interpreted and the report reviewed and electronically signed by: BUNNY LIANG MD on Jul 13 2024 10:05AM EST Narrative 07/13/2024 10:07 AM EDT * * *Final Report* * [...] seen. No acute osseous process is evident. Procedure Note Provider, [facility] - 07/13/2024 * * *Final Report* * * DATE [...] seen. No acute osseous process is evident. IMPRESSION IMPRESSION: Mild to moderate colonic stool content Hose Operator: [facility] Transcribe Date/Time: Jul 13 2024 9:59A Dictated by : BUNNY LIANG MD This examination was interpreted and the report reviewed and electronically signed by: BUNNY LIANG MD on Jul 13 2024 10:05AM EST Iliana Hendrickson PA-C RAD-PAMA Final Resu lt documented in this encounter Visit Diagnoses Diagnosis Chronic idiopathic constipation- Primary Unspecified constipation Chronic idiopathic constipation Unspecified constipation documented in this encounter Care Teams Performance Makeup Artist Relationship Specialty Start Date End Date Emerald Sanchez MD 112 [facility] 110 [place] [address] PCP - General Family Medicine 03/27/19 Deena Osorio APRN [address] [facility] 110 [place] [address] Referring Family Medicine 04/03/24 Darwin Starr DO [address] [place] [address] Dr Tadeo [place] [id number] Referring Alarm Investigator 07/02/24 documented as of this encounter
--- OUTSIDE RECORDS SUMMARY | 2024-12-09 21:59 | XMS_ITS | Encounter Summary ---
Author Organization [facility] Address [address] [facility] [place] [address] Care Team Providers Care Flasher Adjuster Name Role Phone Emerald Sanchez MD Unavailable Emerald Sanchez MD Primary Care Provider [phone] Encounter Details Date Type Department Care Team (Late st Contact Info) Description 05/30/2024 Abstract [facility] [address] [facility] 110 [place] [address] Emerald Sanchez MD [address] [place] [address] [place] [address] Social History Tobacco Use Types Packs/Day Years [...] week 05/09/2024 How often do you attend samaritan or adventism serv ices? Never 05/09/2024 Do you belong to any clubs o r organizations such as samaritan groups, unions, fraternal or athletic groups, or [...] and heating? Not hard at all 05/09/2024 [place] [facility] - Occupational Stress Questionnaire Answer Date [...] in a longterm (including now)? No 04/18/2023 Housing Stability Vital Sign Answer Celso e Recorded In the last 12 months, was t here a time when you were not able to pay the mortgage or rent on time? No 05/09/2024 In the past 12 months, how m any times have you moved where you were living? 0 05/09/2024 At any time in the past 12 m [facility], were you homeless or living in a longterm (including now)? No 05/09/2024 Comments No Sex [...] EDT Office Visit [facility] 368 [place] [address] Milton Duvall, DPM FACFAS 368 [facility] [place] [address] 12/26/2024 1:20 PM EDT Office Visit [facility] [address] [place] [address] [place] [address] Jatin Cabrera MD [address] [facility] [address] [place] [address] documented as of this encounter Goals Goal [...] documented as of this encounter Care Teams Flasher Adjuster Relationship Specialty Start Date End Date Emerald Sanchez MD [address] [facility] 110 [place] [address] PCP - Medical [place] Commercial 10/22/18 04/23/99 Emerald Sanchez MD [address] [facility] 110 [place] [address] PCP - General Family Medicine 08/30/22 documented as of this encounter
--- OUTSIDE RECORDS SUMMARY | 2024-12-09 21:59 | XMS_ITS | Encounter Summary ---
Author Organization [facility] Address [facility] [place] [address] Care Team Providers Care Cytogenetic Technician Name Role Phone Emerald Sanchez MD Primary Care Provider [phone] Deena Osorio APRN Unavailable [phone] Darwin Starr DO Unavailable [phone] Source Comments In the event this information is protected by the Federal Confidentiality of Alcohol and Drug AbusePatient Records regulations: The Federal rules restrict any use of the information to criminally investigate or prosecute any alcohol or drug abuse patient.[facility] Encounter Details Date Type Department Care Team (Late st Contact Info) Description 10/18/2022 [place] [address] Provider, [facility] Financial Clearance Status Social History Tobacco Use Types Packs/Day Years Used Date Smoking Tobacco: Never Smokeless Tobacco: Never Alcohol Use Standard Drinks/Week Comments Yes 0 (1 standard drink = 0.6 oz pur e alcohol) socially Area Deprivation Index Answer Date Jose rded National Score (1-100), lower number is lower ri sk 65 10/17/2022 State Score (1-10), lower number is lower risk 4 10/17/2022 Data from: https://www.neighborhoodatlas.medicine.tri[facility].edu/. Last address used for calculation [address] [...] Office Visit Gynecology [address] [place] [address] Emma Ying, POWER GENERATION TECHNICIAN.SATELLITE INSTALLATION TECHNICIAN [address] [place] [address] Other specified dyspareunia documented as of this encounter Visit Diagnoses Not on filedocumented in this encounter Additional Health Concerns Infection Onset Date Last Indicated Resolved Time C. difficile 05/22/2024 05/22/2024 06/21/2024 8:51 PM EST documented as of this encounter Care Teams Cytogenetic Technician Relationship Specialty Start Date End Date Emerald Sanchez MD [address] [facility] 110 [place] [address] PCP - General Family Medicine 03/27/19 Deena Osorio, POWER GENERATION TECHNICIAN [address] [facility] 110 [place] [address] Referring Family Medicine 04/03/24 Darwin Starr DO [address] [place] [address] [place] [address] Referring Commercial Lawn Specialist 07/02/24 documented as of this encounter
--- OUTSIDE RECORDS SUMMARY | 2024-12-09 21:59 | XMS_ITS | Encounter Summary ---
Author Organization [facility] Address [address] [facility] [place] [address] Care Team Providers Care Welder Helper Name Role Phone Emerald Sanchez MD Unavailable Emerald Sanchez MD Primary Care Provider [phone] Encounter Details Date Type Department Care Team (Late st Contact Info) Description 05/15/2024 Abstract [facility] [address] [facility] 110 [place] [address] Emerald Sanchez MD [address] [place] [address] [place] [address] Social History Tobacco Use Types Packs/Day Years [...] week 05/09/2024 How often do you attend evangelical or confucianist serv ices? Never 05/09/2024 Do you belong to any clubs o r organizations such as evangelical groups, unions, fraternal or athletic groups, or [...] and heating? Not hard at all 05/09/2024 [facility] - Occupational Stress Questionnaire [...] in a long-term (including now)? No 04/18/2023 Housing Stability Vital Sign Answer Celso e Recorded In the last 12 months, was t here a time when you were not able to pay the mortgage or rent on time? No 05/09/2024 In the past 12 months, how m any times have you moved where you were living? 0 05/09/2024 At any time in the past 12 m [facility], were you homeless or living in a long-term (including now)? No 05/09/2024 Comments No Sex [...] EDT Office Visit [facility] 368 [place] [address] Milton Duvall, DPM FACFAS 368 [facility] [place] [address] 12/26/2024 1:20 PM EDT Office Visit [facility] [address] [place] [address] [place] [address] Jatin Cabrera MD [address] [facility] [address] [place] [address] documented as of this encounter Goals Goal [...] documented as of this encounter Care Teams Welder Helper Relationship Specialty Start Date End Date Emerald Sanchez MD [address] [place] [facility] 110 [place] [address] PCP - Medical [place] Commercial 10/22/18 04/23/99 Emerald Sanchez MD [address] [facility] 110 [place] [address] PCP - General Family Medicine 08/30/22 documented as of this encounter
--- OUTSIDE RECORDS SUMMARY | 2024-12-09 21:59 | XMS_ITS | Encounter Summary ---
Author Organization [facility] Address [address] [place] [address] Care Team Providers Care Intermodal Truck Driver Name Role Phone Emerald Sanchez MD Unavailable Emerald Sanchez MD Primary Care Provider [phone] Encounter Details Date Type Department Care Team (Late st Contact Info) Description 12/12/2023 Orders Only [facility] [address] [place] 110 [place] [address] Unallocated, Noms Provider, [address] [place] [address] Social History Tobacco Use Types Packs/Day Years [...] often do you attend chur ch or roman catholic services? Never 04/18/2023 Do you belong to any clubs o r organizations such as gnosticism groups, unions, fraternal or athletic groups, or [...] and heating? Not hard at all 04/18/2023 [facility] of Occupat ional Health - Occupational [...] EDT Office Visit [facility] 368 [place] [address] Milton Duvall, DPM FACFAS 368 [place] [address] 12/26/2024 1:20 PM EDT Office Visit [facility] [address] [facility] 310 [place] [address] Jatin Cabrera MD 2435 [facility] [address] [address] documented as of this encounter Goals Goal Patient Goal Type Associated Problems Recent Progress Patient-Stated? Author Help patient manage antidepressant medication Care Plan Patient on antidepressant monitoring plan Emerald Gaxiola MD Baseline PHQ-9 Care Plan Baseline PHQ-9 Emerald Gaxiola MD documented as of this encounter Procedures Procedure Name Priority Date/Time Associated Diagnosis Comments SCANNED LABS Routine 12/12/2023 1:33 PM EDT documented in this encounter Results * SCANNED LABS (12/12/2023 1:33 PM EDT) us Noms Provider Unallocated LAB CHG PERFORMABLE S Final Result documented in this encounter Visit Diagnoses Not on filedocumented in this encounter Additional Health Concerns Active Problems Noted Date Diagnosed Date Patient on antidepressant monitoring plan 2023 Baseline PHQ-9 05/08/2023 documented as of this encounter Care Teams Intermodal Truck Driver Relationship Specialty Start Date End Date Emerald Sanchez MD [address] [place] [address] [place] [address] PCP - Medical [place] [employer] 10/22/18 04/23/99 Emerald Sanchez MD [address] [place] [address] [place] [address] PCP - General Family Medicine 08/30/22 documented as of this encounter
--- OUTSIDE RECORDS SUMMARY | 2024-12-09 21:59 | XMS_ITS | Encounter Summary ---
Author Organization [facility] Address [address] [facility] [place] [address] Care Team Providers Care First Aid Instructor Name Role Phone Emerald Sanhcez MD Unavailable Emerald Sanchez MD Primary Care Provider [phone] Encounter Details Date Type Department Care Team (Late st Contact Info) Description 12/06/2023 Abstract [facility] [address] [facility] 110 [place] [address] Emerald Sanchez MD [address] [place] [address] [place] [address] Social History Tobacco Use Types Packs/Day Years [...] often do you attend chur ch or mormonism services? Never 04/18/2023 Do you belong to any clubs o r organizations such as alevism groups, unions, fraternal or athletic groups, or [...] and heating? Not hard at all 04/18/2023 [facility] of Occupat ional Health - Occupational Stress [...] in a penitentiary (including now)? No 04/18/2023 Comments No Sex [...] EDT Office Visit [facility] 368 [place] [address] Milton Duvall, DPM FACFAS 368 [place] [address] 12/26/2024 1:20 PM EDT Office Visit [facility] [address] [facility] 310 [place] [address] Jatin Cabrera MD 3767 [facility] [address] [address] documented as of this encounter Goals Goal [...] documented as of this encounter Care Teams First Aid Instructor Relationship Specialty Start Date End Date Emerald Sanchez MD [address] [place] [address] [place], [place] [phone] PCP - Medical [place] Commercial 10/22/18 04/23/99 Emerald Sanchez MD [address] [place] [address] [place] [address] PCP - General Family Medicine 08/30/22 documented as of this encounter
--- OUTSIDE RECORDS SUMMARY | 2024-12-09 21:59 | XMS_ITS | Encounter Summary ---
Author Organization [facility] Address [address] [place] [address] Care Team Providers Care Boring Inspector Name Role Phone Emerald Sanchez MD Primary Care Provider [phone] Deena Osorio APRN Unavailable [phone] Darwin Starr DO Unavailable [phone] Source Comments In the event this information is protected by the Federal Confidentiality of Alcohol and Drug AbusePatient Records regulations: The Federal rules restrict any use of the information to criminally investigate or prosecute any alcohol or drug abuse patient.[facility] Encounter Details Date Type Department Care Team (Late st Contact Info) Description 04/19/2024 Patient Msg Cardiology [address] [place], [place] [id number] Provider, Ccf Heart monitor results Social History Tobacco Use Types Packs/Day Years Used Date Smoking Tobacco: Never Smokeless Tobacco: Never Alcohol Use Standard Drinks/Week Comments Yes 0 (1 standard drink = 0.6 oz pur e alcohol) socially Area Deprivation Index Answer Date Jose rded National Score (1-100), lower number is lower ri sk 65 10/17/2022 State Score (1-10), lower number is lower risk 4 10/17/2022 Data from: https://www.neighborhoodatlas.medicine.[facility]/. Last address used for calculation [address] [...] Office Visit Gynecology [address] [place] [address] Emma Ying, CAMPAIGN MANAGER.POULTRY PROCESSING SUPERVISOR [address] [place] [address] Other specified dyspareunia documented as of this [...] documented as of this encounter Care Teams Boring Inspector Relationship Specialty Start Date End Date Emerald Sanchez MD [address] [facility] 110 [place] [address] PCP - General Family Medicine 03/27/19 Deena Osorio, CAMPAIGN MANAGER [address] [place] [address] [place] [address] Referring Family Medicine 04/03/24 Darwin Starr DO [address] [facility] [address] Carlyle Mancuso[place], [place] [address] Referring Interior Wall Assembler 07/02/24 documented as of this encounter
--- OUTSIDE RECORDS SUMMARY | 2024-12-09 21:59 | XMS_ITS | Encounter Summary ---
Author Organization [facility] Address [address] [facility] [place] [address] Care Team Providers Care Fish Agent Name Role Phone Emerald Sanchez MD Unavailable Emerald Sanchez MD Primary Care Provider [phone] Encounter Details Date Type Department Care Team (Late st Contact Info) Description 01/10/2024 Abstract [facility] [address] [facility] 110 [place] [phone] Emerald Sanchez MD [address] [place] [address] [place] [address] Social History Tobacco Use Types Packs/Day Years [...] any clubs o r organizations such as quaker groups, unions, fraternal or athletic groups, or [...] and heating? Not hard at all 04/18/2023 [facility]at ional [facility] - [...] in a correction (including now)? No 04/18/2023 Comments No Sex [...] EDT Office Visit [facility] [address] [place] [address] Milton Duvall, DPM FACFAS [address] [place] [address] 12/26/2024 1:20 PM EDT Office Visit [facility] [address] [place] [address] [place] [address] Jatin Cabrera MD 8[address] [facility] [address] [address] documented as of this encounter Goals Goal [...] documented as of this encounter Care Teams Fish Agent Relationship Specialty Start Date End Date Emerald Sanchez MD [address] [place] [address] [place], [place] [id number] PCP - Medical [place] [employer] 10/22/18 04/23/99 Emerald Sanchez MD [address] [place] [address] [place] [address] PCP - General Family Medicine 08/30/22 documented as of this encounter
--- OUTSIDE RECORDS SUMMARY | 2024-12-09 21:59 | XMS_ITS | Encounter Summary ---
Author Organization [facility] Address [address] [facility] [place] [address] Care Team Providers Care Shop Tech Name Role Phone Emerald Sanchez MD Unavailable Emerald Sanchez MD Primary Care Provider [phone] Encounter Details Date Type Department Care Team (Late st Contact Info) Description 12/13/2023 Abstract [facility] [address] [facility] 110 [place] [address] Emerald Sanchez MD [address] [place] [address] [place] [address] Social History Tobacco Use Types Packs/Day Years [...] often do you attend chur ch or anabaptist services? Never 04/18/2023 Do you belong to [...] and heating? Not hard at all 04/18/2023 [facility] of Occupat ional Health - Occupational Stress [...] place to sleep or slept in a snf (including now)? No 04/18/2023 Comments No Sex [...] EDT Office Visit [facility] [address] [place] [address] Milton Duvall, DPM FACFAS [address] [place] [address] 12/26/2024 1:20 PM EDT Office Visit [facility] [address] [facility] 310 [place] [address] Jatin Cabrera MD 1392 [facility] [address] [address] documented as of this encounter Goals Goal [...] documented as of this encounter Care Teams Shop Tech Relationship Specialty Start Date End Date Emerald Sanchez MD [address] [place] [address] [place], [place] [address] PCP - Medical [place] [employer] 10/22/18 04/23/99 Emerald Sanchez MD [address] [place] [address] [place] [address] PCP - General Family Medicine 08/30/22 documented as of this encounter
--- OUTSIDE RECORDS SUMMARY | 2024-12-09 21:59 | XMS_ITS | Encounter Summary ---
Author Organization [facility] Address [address] [facility] [address] Care Team Providers Care Tempering Kiln Tender Name Role Phone Emerald Sanchez MD Unavailable Emerald Sanchez MD Primary Care Provider [phone] Encounter Details Date Type Department Care Team (Late st Contact Info) Description 01/12/2024 Abstract [facility] [address] [facility] 110 [place] [address] Emerald Sanchez MD [address] [place] [address] [place] [address] Social History Tobacco Use Types Packs/Day Years [...] often do you attend chur ch or confucianism services? Never 04/18/2023 Do you belong to any clubs o r organizations such as synagogue groups, unions, fraternal or athletic groups, or [...] heating? Not hard at all 04/18/2023 [facility] of Occupat ional Health - Occupational [...] EDT Office Visit [facility] [address] [place] [address] Milton Duvall, DPM FACFAS [address] [place] [address] 12/26/2024 1:20 PM EDT Office Visit [facility] [address] [facility] 310 [place] [address] Jatin Cabrera MD 7455 [facility] [address] [address] documented as of this encounter Goals Goal [...] documented as of this encounter Care Teams Tempering Kiln Tender Relationship Specialty Start Date End Date Emerald Sanchez MD [address] [place] [address] [place], [place] [address] PCP - Medical [place] [employer] 10/22/18 04/23/99 Emerald Sanchez MD [address] [place] [address] [place] [address] PCP - General Family Medicine 08/30/22 documented as of this encounter
--- OUTSIDE RECORDS SUMMARY | 2024-12-09 21:59 | XMS_ITS | Encounter Summary ---
Author Organization [facility] Address [address] [place] [address] Care Team Providers Care Facsimile Operator Name Role Phone Emerald Hagen MD Unavailable Emerald Hagen MD Primary Care Provider [phone] Encounter Details Date Type Department Care Team (Late st Contact Info) Description 01/17/2024 Clinisync Result Encounter [facility] External Department Unsolicited Emerald Hagen MD [address] [facility] 110 [place] [address] Social History Tobacco Use Types Packs/Day Years [...] often do you attend chur ch or pentecostalism services? Never 04/18/2023 Do you belong to any clubs o r organizations such as restorationist groups, unions, fraternal or athletic groups, or [...] EDT Office Visit [facility] [address] [place] [address] Milton Duvall, DPM FACFAS [address] [place] [address] 12/26/2024 1:20 PM EDT Office Visit [facility] [address] [facility] 310 [place] [address] Jatin Cabrera MD 3134 [facility] [address] [phone] documented as of this encounter Goals Goal Patient Goal Type Associated Problems Recent Progress Patient-Stated? Author Help patient manage antidepressant medication Care Plan Patient on antidepressant monitoring plan No Emerald Hagen MD Baseline PHQ-9 Care Plan Baseline PHQ-9 No Emerald Hagen MD documented as of this encounter Procedures Procedure Name Priority Date/Time Associated Diagnosis Comments XR CERVICAL SPINE 2-3V 01/17/2024 6:21 AM EDT documented in this encounter Results * XR CERVICAL SPINE 2-3V (01/17/2024 6:21 AM EDT) Anatomical Region Laterality Modality Other 01/17/2024 6:21 AM EDT Narrative 01/17/2024 6:23 AM EDT [address] [address] XRay Report Signed Patient: BELGICA BARNETT MR#: [id number] : 1990 Acct:[id number] Age/Sex: 33 / F ADM Date: 01/12/24 Loc: RAD Attending Dr: EMERALD HAGEN Ordering Physician: EMERALD HAGEN Date of Service: 01/12/24 Procedure(s): XR cervical spine 2-3V Accession Number(s): [id number] cc: EMERALD HAGEN [place] [address] Patient Name: BELGICA BARNETT MRN: [id number] date: 1990 Sex: F Assigned Patient Location: RAD Current Patient Location: ED.MAIN Accession/Order Number: [id number] Exam Date: 01/12/2024 16:55 Report Date: 01/17/2024 06:21 At the request of: EMERALD HAGEN Procedure: XR cervical spine 2-3V EXAMINATION: XR cervical spine 2-3V HISTORY: cervical bunmwoxyblatqT12.12 , neck pain, numbness in shoulders and fingers COMPARISON: No relevant comparison available. FINDINGS: BONES: No significant spondylosis, scoliosis, fracture, or visible bony lesion. DISC SPACES: No significant disc height narrowing, subluxation, or endplate abnormality. PARASPINOUS: Negative. No paraspinous abnormality is seen. OTHER: Negative. XR/XR cervical spine 2-3V IMPRESSION: 1. No acute abnormality or appreciable degenerative changes. Consider MRI of cervical spine if symptoms persist. Electronically authenticated by: KEEGAN BRUNO Date: 01/17/2024 06:21 Dictated By: Keegan Bruno M.D. Signed By: 01/17/2423 DD/ 0 TD/TT: Automatic Nailing Machine Feeder: Procedure Note Radiology, Radiologist, MD - 01/17/[address] [address] XRay Report Signed Patient: BELGICA BARNETT AMR#: [id number] : 1990Acct:[id number] Age/Sex: 33 / FADM Date: 01/12/24 Loc: RAD Attending Dr: EMERALD HAGEN Ordering Physician: EMERALD HAGEN Date of Service: 01/12/24 Procedure(s): XR cervical spine 2-3V Accession Number(s): [id number] cc: EMERALD HAGEN The [place] [id number] Patient Name: BELGICA BARNETT MRN: [id number] date: 1990 Sex: F Assigned Patient Location: [facility] Current Patient Location: ED.MAIN Accession/Order Number: [id number] Exam Date: 01/12/2024 16:55 Report Date: 01/17/2024 06:21 At the request of: EMERALD HAGEN Procedure: XR cervical spine 2-3V EXAMINATION: XR cervical spine 2-3V HISTORY: cervical fevyxfufrzrcsB93.12 , neck pain, numbness in shouldersand fingers COMPARISON: No relevant comparison available. FINDINGS: BONES: No significant spondylosis, scoliosis, fracture, or visible bony lesion. DISC SPACES: No significant disc height narrowing, subluxation, orendplate abnormality. PARASPINOUS: Negative. No paraspinous abnormality is seen. OTHER: Negative. XR/XR cervical spine 2-3V IMPRESSION: 1. No acute abnormality or appreciable degenerative changes. Consider MRIof cervical spine if symptoms persist. Electronically authenticated by: KEEGAN BRUNO Date: 01/17/2024 06:21 Dictated By: Keegan Bruno M.D. Signed By:01/17/24622 DD/ 0 TD/TT: Automatic Nailing Machine Feeder: us Emerald Hagen MD [facility] Final Result documented in this encounter Visit Diagnoses Not on filedocumented in this encounter Additional Health Concerns Active Problems Noted Date Diagnosed Date Patient on antidepressant monitoring plan 2023 Baseline PHQ-9 05/08/2023 documented as of this encounter Care Teams Facsimile Operator Relationship Specialty Start Date End Date Emerald Hagen MD [address] [facility] [place] [address] [place], [place] [address] PCP - Medical [place] [employer] 10/22/18 04/23/99 Emerald Hagen MD 112 [facility] 110 [place] [address] PCP - General Family Medicine 08/30/22 documented as of this encounter
--- OUTSIDE RECORDS SUMMARY | 2024-12-09 21:59 | XMS_ITS | Patient Health Record ---
Author Organization Telehealth Visit Address [address] [place] [id number] Care Team Providers Care Buncher Hand Name Role Phone GIOVANI HAGEN MD Primary Care Provider Oren Pulliam [phone] Allergies Allergen (clinical drug ingredient) Drug/Non Drug Allergy documented on EMR Reaction Allergy Type Onset Date Status Contrast Allergy PreMed Pack Unknown Drug Allergy Active Reason For Referral No Information Medications Medication SIG (Take, Route, Frequency, Duration) Notes Start Date End Date Status Vyvanse Active Wellbutrin Active Xanax Active Vraylar Active Albuterol Active Social History Tobacco Use: Social History Observation Description Date Details (start date - stop date) Former Smoker NA - NA Alcohol Screen Question Answer Notes Did you have a drink contain ing alcohol in the past year? Yes How often did you have a dri nk containing alcohol in the past year? 2 to 4 times a month (2 points) How many drinks did you have on a typical day when you were drinking in the past year? 1 or 2 drinks (0 point) How often did you have 6 or more drinks on one occasion in the past year? Never (0 point) Points 2 Interpretation Negative Smoking Question Answer Notes Status former smoker Section Notes: . Works for the [employer] Problems Problem Type SNOMED Code ICD Code Onset Dates Problem Status W/U Status Risk Notes Problem Gastroparesis (683456653) Gastroparesis (K31.84) Active confirmed Problem Elevated transaminase level (R74.01) Active confirmed Plan Of Treatment Pending Test Test Name Order Date Gastric Emptying Scan 05/01/2023 lipase* 05/01/2023 LFT's 05/01/2023 LFT's 04/01/2023 Insurance Providers Payer Name Payer Address Payer Phone Subscriber Number Group Number Insured Name Patient Relationship to Insured Coverage Start Date Coverage End Date [employer] [address] [place] [address] [phone] [id number] Belgica Barnett Self - patient is the insured Medical (General) History Medical History History ICD Code anxiety depression ADHD asthma diverticulitis helicobacter pylori infection ulcer pancreatitis, acute, gallstone bipolar disorder adhesions obesity Surgical History Surgery Date(Month/Year) EGD colonoscopy cholecystectomy section laparoscopy
--- OUTSIDE RECORDS SUMMARY | 2024-12-09 21:59 | XMS_ITS | Encounter Summary ---
Author Organization [facility] Address [address] [place] [address] Care Team Providers Care Transitions Manager Rn Name Role Phone Emerald Sanchez MD Primary Care Provider [phone] Deena Osorio CHLORINE CELLS OPERATOR Unavailable [phone] Darwin Starr DO Unavailable [phone] Source Comments In the event this information is protected by the Federal Confidentiality of Alcohol and Drug AbusePatient Records regulations: The Federal rules restrict any use of the information to criminally investigate or prosecute any alcohol or drug abuse patient.[facility] Encounter Details Date Type Department Care Team (Late st Contact Info) Description 07/08/2024 Patient Msg Gastroenterology [address] [place] [address] Provider, Ccf Social History Tobacco Use Types Packs/Day Years [...] is lower risk 4 10/17/2022 Data from: https://www.neighborhoodatlas.medicine.[facility].edu/. Last address used for calculation [address] 10/17/2022 Comments No Sex and Gender Information Value Date Recorded Sex Assigned at Not on file Legal Sex Female 9:05 PM EDT Gender Identity Female 06/08/2021 8:30 AM EST Sexual Orientation Not on file documented as of this encounter Miscellaneous Notes * Telephone Encounter - Radha Soriano RN - 07/08/2024 9:42 AM EDT Iliana, Patient having pain with sitting, stating she is having diarrhea. documented in this encounter Plan of Treatment Upcoming Encounters Date Type Department Care Team (Late st Contact Info) Description 12/30/2024 9:00 AM EDT Office Visit Gynecology [address] [place] [address] Emma Ying APRN.ANALOG CIRCUIT DESIGNER [address] [place] [address] Other specified dyspareunia documented as of this encounter Goals Goal Patient Goal Type Associated Problems Recent Progress Patient-Stated? Author Blood Pressure < 140/90 Blood Pressure 112/76( 025 1:00 PM EDT) No Solo Mora MD documented as of this encounter Visit Diagnoses Not on filedocumented in this encounter Care Teams Transitions Manager Rn Relationship Specialty Start Date End Date Emerald Sanchez MD [address] [facility] 110 [place] [address] PCP - General Family Medicine 03/27/19 Deena Osorio APRN [address] [place] [address] [place] [address] Referring Family Medicine 04/03/24 Darwin Starr DO [address] [facility] [place] [address] Referring Dress Draper 07/02/24 documented as of this encounter
--- OUTSIDE RECORDS SUMMARY | 2024-12-09 21:59 | XMS_ITS | Encounter Summary ---
Author Organization [facility] Address [address] [place] [address] Care Team Providers Care Product Handler Name Role Phone Emerald Sanchez MD Primary Care Provider [phone] Deena Osorio APRN Unavailable [phone] Darwin Starr DO Unavailable [phone] Source Comments In the event this information is protected by the Federal Confidentiality of Alcohol and Drug AbusePatient Records regulations: The Federal rules restrict any use of the information to criminally investigate or prosecute any alcohol or drug abuse patient.[facility] Encounter Details Date Type Department Care Team (Late st Contact Info) Description 03/20/2023 Patient Msg Gastroenterology [address] [place] [address] [place] [address] [place] [address] Appointment Request Social History Tobacco Use Types Packs/Day Years Used Date Smoking Tobacco: Never Smokeless Tobacco: Never Alcohol Use Standard Drinks/Week Comments Yes 0 (1 standard drink = 0.6 oz pur e alcohol) socially Area Deprivation Index Answer Date Jose rded National Score (1-100), lower number is lower ri sk 65 10/17/2022 State Score (1-10), lower number is lower risk 4 10/17/2022 Data from: https://www.neighborhoodatlas.medicine.[facility].edu/. Last address used for calculation [address] [...] Office Visit Gynecology [address] [place] [address] Emma Ying APRN.BUSINESS ANALYTICS SPECIALIST [address] [place] [address] Other specified dyspareunia documented as of this encounter Visit Diagnoses Not on filedocumented in this encounter Additional Health Concerns Infection Onset Date Last Indicated Resolved Time C. difficile 05/22/2024 05/22/2024 06/21/2024 8:51 PM EST documented as of this encounter Care Teams Product Handler Relationship Specialty Start Date End Date Emerald Sanchez MD [address] [facility] 110 [place] [address] PCP - General Family Medicine 03/27/19 Deena Osorio APRN [address] [facility] 110 [place] [address] Referring Family Medicine 04/03/24 Darwin Starr DO [address] [place] [address] [place] [address] Referring Radio Television Technical Director 07/02/24 documented as of this encounter
--- OUTSIDE RECORDS SUMMARY | 2024-12-09 21:59 | XMS_ITS | Encounter Summary ---
Author Organization [facility] Address [address] [facility] [place] [address] Care Team Providers Care Hotel Or Motel Cleaning Supervisor Name Role Phone Emerald Sanchez MD Unavailable Emerald Sanchez MD Primary Care Provider [phone] Encounter Details Date Type Department Care Team (Late st Contact Info) Description 01/02/2024 Abstract [facility] [address] [facility] 110 [place] [address] Emerald Sanchez MD [address] [place] [address] [place] [address] Social History Tobacco Use Types Packs/Day Years [...] often do you attend chur ch or episcopal services? Never 04/18/2023 Do you belong to any clubs o r organizations such as uatsdin groups, unions, fraternal or athletic groups, or [...] and heating? Not hard at all 04/18/2023 [facility] of Occupat ional Health - Occupational [...] EDT Office Visit [facility] [address] [place] [address] Milton Duvall, DPM FACFAS [address] [place] [address] 12/26/2024 1:20 PM EDT Office Visit [facility] [address] [facility] 310 [place] [address] Jatin Cabrera MD 0334 [facility] [address] [address] documented as of this encounter Goals Goal [...] documented as of this encounter Care Teams Hotel Or Motel Cleaning Supervisor Relationship Specialty Start Date End Date Emerald Sanchez MD [address] [place] [address] [place], [place] [address] PCP - Medical [place] [employer] 10/22/18 04/23/99 Emerald Sanchez MD [address] [place] [address] [place] [address] PCP - General Family Medicine 08/30/22 documented as of this encounter
--- OUTSIDE RECORDS SUMMARY | 2024-12-09 21:59 | XMS_ITS | Encounter Summary ---
Author Organization [facility] Address [address] [facility] [place] [address] Care Team Providers Care Protective Service Specialist Name Role Phone Emerald Sanchez MD Unavailable Emerald Sanchez MD Primary Care Provider [phone] Encounter Details Date Type Department Care Team (Late st Contact Info) Description 11/30/2023 Abstract [facility] [address] [facility] 110 [place] [address] Emerald Sanchez MD [address] [place] [address] [place] [address] Social History Tobacco Use Types Packs/Day Years [...] often do you attend chur ch or amish services? Never 04/18/2023 Do you belong to any clubs o r organizations such as baptism groups, unions, fraternal or athletic groups, or [...] and heating? Not hard at all 04/18/2023 [facility] of Occupat ional Health - Occupational [...] place to sleep or slept in a detention (including now)? No 04/18/2023 Comments No Sex [...] EDT Office Visit [facility] [address] [place] [address] Milton Duvall, DPM FACFAS [address] [place] [address] 12/26/2024 1:20 PM EDT Office Visit [facility] [address] [facility] [address] [place] [address] Jatin Cabrera MD [address] [facility] [address] [address] documented as of this encounter Goals Goal [...] documented as of this encounter Care Teams Protective Service Specialist Relationship Specialty Start Date End Date Emerald Sanchez MD [address] [place] [address] [place], [place] [address] PCP - Medical [place] [employer] 10/22/18 04/23/99 Emerald Sanchez MD [address] [place] [address] [place] [address] PCP - General Family Medicine 08/30/22 documented as of this encounter
--- OUTSIDE RECORDS SUMMARY | 2024-12-09 21:59 | XMS_ITS | Encounter Summary ---
Author Organization [facility] Address [address] [place] [address] Care Team Providers Care Advertising Coordinator Name Role Phone Emerald Sanchez MD Primary Care Provider [phone] Deena Osorio SOLDER LEVELER PRINTED CIRCUIT BOARDS Unavailable [phone] Darwin Starr DO Unavailable [phone] Source Comments In the event this information is protected by the Federal Confidentiality of Alcohol and Drug AbusePatient Records regulations: The Federal rules restrict any use of the information to criminally investigate or prosecute any alcohol or drug abuse patient.[facility] Encounter Details Date Type Department Care Team (Late st Contact Info) Description 08/30/2022 GI Preprocedure Call Ambulatory Surgery [address] [place] [address] [place] [address] [place] [address] Social History Tobacco Use Types Packs/Day Years [...] N ot on file 05/27/2022 Data from: https://www.neighborhoodatlas.medicine.[facility].edu/. Last address used for calculation [address] [...] EDT Office Visit Gynecology [address] [place] [address] Emma Ying APRN.GRANITE POLISHER APPRENTICE [address] [place] [address] Other specified dyspareunia documented as of this encounter Visit Diagnoses Not on filedocumented in this encounter Additional Health Concerns Infection Onset Date Last Indicated Resolved Time C. difficile 05/22/2024 05/22/2024 06/21/2024 8:51 PM EST documented as of this encounter Care Teams Advertising Coordinator Relationship Specialty Start Date End Date Emerald Sanchez MD [address] [facility] 110 [place] [address] PCP - General Family Medicine 03/27/19 Deena Osorio, SOLDER LEVELER PRINTED CIRCUIT BOARDS [address] [place] [address] [place] [address] Referring Family Medicine 04/03/24 Darwin Starr DO [address] [place] [address] Dr [place]le [place], [place] [address] Referring Department Operations Manager 07/02/24 documented as of this encounter
--- OUTSIDE RECORDS SUMMARY | 2024-12-09 21:59 | XMS_ITS | Encounter Summary ---
Author Organization [facility] Address [address] [facility] [place] [address] Care Team Providers Care Textile Technologist Name Role Phone Emerald Sanchez MD Unavailable Emerald Sanchez MD Primary Care Provider [phone] Encounter Details Date Type Department Care Team (Late st Contact Info) Description 04/10/2024 Abstract [facility] [address] [facility] 110 [place] [address] Emerald Sanchez MD [address] [place] [address] [place] [address] Social History Tobacco Use Types Packs/Day Years [...] often do you attend chur ch or latter-day services? Never 04/18/2023 Do you belong to any clubs o r organizations such as anabaptism groups, unions, fraternal or athletic groups, or [...] and heating? Not hard at all 04/18/2023 [facility] of Occupat ional Health - Occupational [...] EDT Office Visit [facility] [address] [place] [address] Milton Duvall, DPM FACFAS [address] [place] [address] 12/26/2024 1:20 PM EDT Office Visit [facility] [address] [facility] 310 [place] [address] Jatin Cabrera MD 6912 [facility] [address] [address] documented as of this encounter Goals Goal [...] documented as of this encounter Care Teams Textile Technologist Relationship Specialty Start Date End Date Emerald Sanchez MD [address] [place] [address] [place], [place] [address] PCP - Medical [place] [employer] 10/22/18 04/23/99 Emerald Sanchez MD [address] [place] [address] [place] [address] PCP - General Family Medicine 08/30/22 documented as of this encounter
--- OUTSIDE RECORDS SUMMARY | 2024-12-09 21:59 | XMS_ITS | Encounter Summary ---
Author Organization [facility] Address [address] [facility] [place] [address] Care Team Providers Care Pharmaceutical Worker Name Role Phone Emerald Sanchez MD Unavailable Emerald Sanchez MD Primary Care Provider [phone] Encounter Details Date Type Department Care Team (Late st Contact Info) Description 05/16/2024 Abstract [facility] [address] [facility] 110 [place] [address] Emerald Sanchez MD [address] [place] [address] [place] [address] Social History Tobacco Use Types Packs/Day Years [...] How often do you attend evangelical or scientology serv ices? Never 05/09/2024 Do you belong [...] and heating? Not hard at all 05/09/2024 [facility] - Occupational Stress Questionnaire Answer Date [...] any time in the past 12 m [facility], were you homeless or living [...] EDT Office Visit [facility] [address] [place] [address] Milton Duvall, DPM FACFAS 368 [facility] [place] [address] 12/26/2024 1:20 PM EDT Office Visit [facility] [address] [place] [address] [place] [address] Jatin Cabrera MD [address] [facility] [address] Simeon [address] [place] [address] documented as of this encounter Goals Goal [...] documented as of this encounter Care Teams Pharmaceutical Worker Relationship Specialty Start Date End Date Emerald Sanchez MD [address] [facility] 110 [place] [address] PCP - Medical [place] [employer] 10/22/18 04/23/99 Emerald Sanchez MD [address] [facility] 110 [place] [address] PCP - General Family Medicine 08/30/22 documented as of this encounter
--- OUTSIDE RECORDS SUMMARY | 2024-12-09 21:59 | XMS_ITS | Encounter Summary ---
Author Organization [facility] Address [address] [place] [address] Care Team Providers Care Vending Machine Assembler Name Role Phone Emerald Sanchez MD Primary Care Provider [phone] Deena Osorio APRN Unavailable [phone] Darwin Starr DO Unavailable [phone] Source Comments In the event this information is protected by the Federal Confidentiality of Alcohol and Drug AbusePatient Records regulations: The Federal rules restrict any use of the information to criminally investigate or prosecute any alcohol or drug abuse patient.[facility] Encounter Details Date Type Department Care Team (Late st Contact Info) Description 04/19/2024 Patient Msg Cardiology [address] [place], [place] [id number] Provider, Ccf Social History Tobacco Use Types [...] is lower risk 4 10/17/2022 Data from: https://www.neighborhoodatlas.[facility]/. Last address used for calculation [address] [...] Office Visit Gynecology [address] [place] [address] Emma Ying, BASSAM.RN EMBEDDED [address] [place], [place] [address] Other specified dyspareunia documented as of this [...] documented as of this encounter Care Teams Vending Machine Assembler Relationship Specialty Start Date End Date Emerald Sanchez MD [address] [facility] 110 [place] [address] PCP - General Family Medicine 03/27/19 Deena Osorio, PAGE DESIGNER [address] [place] [address] [place] [address] Referring Family Medicine 04/03/24 Darwin Starr DO [address] [place] [address] Dr C[place]le [place], [place] [address] Referring Senior Health Consultant 07/02/24 documented as of this encounter
--- OUTSIDE RECORDS SUMMARY | 2024-12-09 21:59 | XMS_ITS | Encounter Summary ---
Author Organization [facility] Address [address] [facility] [address] Care Team Providers Care Reading Intervention Teacher Name Role Phone Emerald Sanchez MD Unavailable Emerald Sanchez MD Primary Care Provider [phone] Encounter Details Date Type Department Care Team (Late st Contact Info) Description 04/03/2024 Abstract [facility] [address] [facility] 110 [place] [address] Emerald Sanchez MD [address] [place] [address] [place] [address] Social History Tobacco Use Types Packs/Day Years [...] often do you attend chur ch or sikhism services? Never 04/18/2023 Do you belong to any clubs o r organizations such as episcopal groups, unions, fraternal or athletic groups, or [...] and heating? Not hard at all 04/18/2023 [facility] of Occupat ional Health - [...] EDT Office Visit [facility] [address] [place] [address] Milton Duvall, DPM FACFAS [address] [place] [address] 12/26/2024 1:20 PM EDT Office Visit [facility] [address] [facility] 310 [place] [address] Jatin Cabrera MD 7963 [facility] [address] [address] documented as of this encounter Goals Goal [...] documented as of this encounter Care Teams Reading Intervention Teacher Relationship Specialty Start Date End Date Emerald Sanchez MD [address] [place] [address] [place], [place] [address] PCP - Medical [place] Commercial 10/22/18 04/23/99 Emerald Sanchez MD [address] [place] [address] [place] [address] PCP - General Family Medicine 08/30/22 documented as of this encounter
--- OUTSIDE RECORDS SUMMARY | 2024-12-09 21:59 | XMS_ITS | Encounter Summary ---
Author Organization [facility] Address [address] [place] [address] Care Team Providers Care Skin Pass Operator Name Role Phone Emerald Hagen MD Unavailable Emerald Hagen MD Primary Care Provider [phone] Encounter Details Date Type Department Care Team (Late st Contact Info) Description 11/20/2023 Clinisync Result Encounter [facility] External Department Unsolicited [...] week 04/18/2023 How often do you attend [facility] or protestant services? Never 04/18/2023 Do you belong to any clubs o r organizations such as tenriism groups, unions, fraternal or athletic groups, or [...] EDT Office Visit [facility] [address] [place] [address] Milton Duvall, DPM FACFAS [address] [place] [address] 12/26/2024 1:20 PM EDT Office Visit [facility] [address] [facility] 310 [place] [address] Jatin Cabrera MD 0984 [facility] [address] [address] documented as of this encounter Goals Goal Patient Goal Type Associated Problems Recent Progress Patient-Stated? Author Help patient manage antidepressant medication Care Plan Patient on antidepressant monitoring plan No Emerald Hagen MD Baseline PHQ-9 Care Plan Baseline PHQ-9 No Emerald Hagen MD documented as of this encounter Procedures Procedure Name Priority Date/Time Associated Diagnosis Comments XR ABDOMEN 1V 11/20/2023 7:57 AM EDT documented in this encounter Results * XR ABDOMEN 1V (11/20/2023 7:57 AM EDT) Anatomical Region Laterality Modality Other 11/20/2023 7:57 AM EDT Narrative 11/20/2023 8:00 [place] [address] XRay Report Signed Patient: BELGICA BARNETT MR#: [id number] : 1990 Acct:[id number] Age/Sex: 33 / F ADM Date: 11/16/23 Loc: RAD Attending Dr: Madhuri Mishra M.D. Ordering Physician: Madhuri Mishra M.D. Date of Service: 11/16/23 Procedure(s): XR abdomen 1V Accession Number(s): [id number] cc: EMERALD HAGEN ; Madhuri Mishra M.D. [place] [address] Patient Name: BELGICA BARNETT MRN: [id number] date: 1990 Sex: F Assigned Patient [facility]: [facility] Current Patient Location: Accession/Order Number: [id number] Exam Date: 11/16/2023 16:15 Report Date: 11/20/2023 07:57 At the request of: MADHURI MISHRA Procedure: XR abdomen 1V EXAMINATION: XR abdomen 1V HISTORY: Kidney Stone N20.0, Recurrent UTI N39.0 COMPARISON: XR KUB 06/29/2022 FINDINGS: KIDNEY/URETER - RIGHT: No visible renal or ureteral calcifications. KIDNEY/URETER - LEFT: No visible renal or ureteral calcifications. PELVIS: No visible ureteral calcifications. BOWEL: No abnormal dilation or deviation. BONES: No acute abnormality. OTHER: Negative. No abnormal gaseous collections. XR/XR abdomen 1V IMPRESSION: 1. No visible urinary tract calculi. Electronically authenticated by: LAURIE BRUNO Date: 11/20/2023 07:57 Dictated By: Laurie Bruno M.D. Signed By: 11/20/23 0800 DD/ 0757 TD/TT: School Transportation Supervisor: Procedure Note Radiology, Radiologist, - 11/20/2023 [facility] [place] [id number] XRay Report Signed Patient: BELGICA BARNETT AMR#: [id number] : 1990Acct:[id number] Age/Sex: 33 / FADM Date: 11/16/23 Loc: RAD Attending Dr: Madhuri Mishra M.D. Ordering Physician: Madhuri Mishra M.D. Date of Service: 11/16/23 Procedure(s): XR abdomen 1V Accession Number(s): [id number] cc: EMERALD HAGEN ; Madhuri Mishra M.D. [place] [id number] Patient Name: BELGICA BARNETT MRN: [id number] date: 1990 Sex: F Assigned Patient Location: RAD Current Patient Location: Accession/Order Number: [id number] Exam Date: 11/16/2023 16:15 Report Date: 11/20/2023 07:57 At the request of: MADHURI MISHRA Procedure: XR abdomen 1V EXAMINATION: XR abdomen 1V HISTORY: Kidney Stone N20.0, Recurrent UTI N39.0 COMPARISON: XR KUB 06/29/2022 FINDINGS: KIDNEY/URETER - RIGHT: No visible renal or ureteral calcifications. KIDNEY/URETER - LEFT: No visible renal or ureteral calcifications. PELVIS: No visible ureteral calcifications. BOWEL: No abnormal dilation or deviation. BONES: No acute abnormality. OTHER: Negative. No abnormal gaseous collections. XR/XR abdomen 1V IMPRESSION: 1. No visible urinary tract calculi. Electronically authenticated by: LAURIE BRUNO Date: 11/20/2023 07:57 Dictated By: Laurie Bruno M.D. Signed By:11/20/23 0800 DD/ 0757 TD/TT: School Transportation Supervisor: us Generic External Data Provider [facility] Final Result documented in this encounter Visit Diagnoses Not on filedocumented in this encounter Additional Health Concerns Active Problems Noted Date Diagnosed Date Patient on antidepressant monitoring plan 2023 Baseline PHQ-9 05/08/2023 documented as of this encounter Care Teams Skin Pass Operator Relationship Specialty Start Date End Date Emerald Hagen MD [address] [place] [address] PCP - Medical [place] [employer] 10/22/18 04/23/99 Emerald Hagen MD [address] [place] [address] PCP - General Family Medicine 08/30/22 documented as of this encounter
--- OUTSIDE RECORDS SUMMARY | 2024-12-09 21:59 | XMS_ITS | Encounter Summary ---
Author Organization [facility] Address [address] [facility] [place] [address] Care Team Providers Care Electric Organ Inspector And Repairer Name Role Phone Emerald Sanchez MD Unavailable Emerald Sanchez MD Primary Care Provider [phone] Encounter Details Date Type Department Care Team (Late st Contact Info) Description 04/23/2024 Abstract [facility] [address] [facility] 110 [place] [address] Emerald Sanchez MD [address] [place] [address] [place] [address] Social History Tobacco Use Types Packs/Day Years [...] any clubs o r organizations such as jew groups, unions, fraternal or athletic groups, or [...] place to sleep or slept in a group home (including now)? No 04/18/2023 Comments No Sex [...] EDT Office Visit [facility] [address] [place] [address] Milton Duvall, DPM FACFAS 368 [place] [address] 12/26/2024 1:20 PM EDT Office Visit [facility] [address] [facility] 310 [place] [address] Jatin Cabrera MD 4650 [facility] [address] [address] documented as of this encounter Goals Goal [...] documented as of this encounter Care Teams Electric Organ Inspector And Repairer Relationship Specialty Start Date End Date Emerald Sanchez MD [address] [place] [address] [place], [place] [address] PCP - Medical [place] [employer] 10/22/18 04/23/99 Emerald Sanchez MD [address] [place] [address] [place] [address] PCP - General Family Medicine 08/30/22 documented as of this encounter
--- OUTSIDE RECORDS SUMMARY | 2024-12-09 21:59 | XMS_ITS | Encounter Summary ---
Author Organization [facility] Address [address] [facility] [place] [address] Care Team Providers Care Manager Transportation Planning Name Role Phone Emerald Sanchez MD Unavailable Emerald Sanchez MD Primary Care Provider [phone] Encounter Details Date Type Department Care Team (Late st Contact Info) Description 12/19/2023 Abstract [facility] [address] [facility] 110 [place] [address] Emerald Sanchez MD [address] [place] [address] [place] [address] Social History Tobacco Use Types Packs/Day Years [...] often do you attend chur ch or temple services? Never 04/18/2023 Do you belong to any clubs o r organizations such as temple groups, unions, fraternal or athletic groups, or [...] and heating? Not hard at all 04/18/2023 [facility] of Occupat ional Health - Occupational Stress [...] EDT Office Visit [facility] [address] [place] [address] Milton Duvall, DPM FACFAS 368 [place] [address] 12/26/2024 1:20 PM EDT Office Visit [facility] [address] [facility] 310 [place] [address] Jatin Cabrera MD 1085 [facility] [address] [address] documented as of this encounter Goals Goal [...] as of this encounter Care Teams Manager Transportation Planning Relationship Specialty Start Date End Date Emerald Sanchez MD [address] [place] [address] [place], [place] [address] PCP - Medical [place] [employer] 10/22/18 04/23/99 Emerald Sanchez MD [address] [place] [address] [place] [address] PCP - General Family Medicine 08/30/22 documented as of this encounter
--- OUTSIDE RECORDS SUMMARY | 2024-12-09 21:59 | XMS_ITS | Encounter Summary ---
Author Organization [facility] Address [address] [place] [address] Care Team Providers Care Stonecutter Apprentice Hand Name Role Phone Emerald Sanchez MD Primary Care Provider [phone] Deena Osorio CORE ANALYST Unavailable [phone] Darwin Starr DO Unavailable [phone] Source Comments In the event this information is protected by the Federal Confidentiality of Alcohol and Drug AbusePatient Records regulations: The Federal rules restrict any use of the information to criminally investigate or prosecute any alcohol or drug abuse patient.[facility] Encounter Details Date Type Department Care Team (Late st Contact Info) Description 07/04/2022 Get Medical Advice Gastroenterology [address] [place] [address] Provider, Ccf Question regarding SURGICAL PATHOLOGY Social History Tobacco Use Types Packs/Day Years [...] N ot on file 05/27/2022 Data from: https://www.neighborhoodatlas.[facility]/. Last address used for calculation [address] 05/27/2022 Comments No Sex and Gender Information Value Date Recorded Sex Assigned at Not on file Legal Sex Female 9:05 PM EDT Gender Identity Female 06/08/2021 8:30 AM EST Sexual Orientation Not on file documented as of this encounter Miscellaneous Notes * Telephone Encounter - Wilma Murray RN - 07/04/2022 3:33 PM EDT Please call pt to schedule repeat EGD in 2-[address] Peter Thank you Hi Milly, the stomach biopsies showed H. Pylori infection The small bowel biopsies showed features related to this infection Will treat with antibiotics You need to be on protonix twice a day while on the antibiotics Hold sucralfate while on the antibiotics Sent a script for pylera along with protonix twice a day Will obtain gastric biopsies when I repeat endoscopy in 2-3 months Written by Grayson Peter MD on 07/04/2022 2:47 PM EDT Seen by patient Milly Barnett on 07/04/2022 2:47 PM documented in this encounter Plan of Treatment Upcoming Encounters Date Type Department Care Team (Late st Contact Info) Description 12/30/2024 9:00 AM EDT Office Visit Gynecology [address] [place] [address] Emma Ying APRN.RECRUITING AND SELECTION CONSULTANT [address] [place] [address] Other specified dyspareunia documented as of this encounter Visit Diagnoses Not on filedocumented in this encounter Additional Health Concerns Infection Onset Date Last Indicated Resolved Time C. difficile 05/22/2024 05/22/2024 06/21/2024 8:51 PM EST documented as of this encounter Care Teams Stonecutter Apprentice Hand Relationship Specialty Start Date End Date Emerald Sanchez MD [address] [address] PCP - General Family Medicine 03/27/19 Deena Osorio APRN 112 [facility] 110 [place] [address] Referring Family Medicine 04/03/24 Darwin Starr DO [address] [facility] [place] [address] Referring Web Producer 07/02/24 documented as of this encounter
--- OUTSIDE RECORDS SUMMARY | 2024-12-09 21:59 | XMS_ITS | Encounter Summary ---
Author Organization [facility] Address [address] [place] [address] Care Team Providers Care Underwriting Assistant Name Role Phone Emerald Sanchez MD Unavailable Emerald Sanchez MD Primary Care Provider [phone] Encounter Details Date Type Department Care Team (Late st Contact Info) Description 05/23/2024 Abstract [facility] [address] [facility] [place] [address] Darwin Starr DO 102 [facility] [address] Carlyle Mancuso, [facility] Social History Tobacco Use Types Packs/Day Years [...] week 05/09/2024 How often do you attend restorationism or zoroastrianism serv ices? Never 05/09/2024 Do you belong to any clubs o r organizations such as restorationism groups, unions, fraternal or athletic groups, or [...] and heating? Not hard at all 05/09/2024 [facility] of Occupat ional Health - [...] any time in the past [address] [facility], were you homeless or living in a [...] EDT Office Visit [facility] [address] [place] [address] Milton Duvall, DPM FACFAS 368 [facility] [place] [address] 12/26/2024 1:20 PM EDT Office Visit [facility] [address] [place] [address] [place] [address] Jatin Cabrera MD [address] [facility] [address] [place] [address] [place], [place] [address] documented as of this encounter Goals Goal [...] documented as of this encounter Care Teams Underwriting Assistant Relationship Specialty Start Date End Date Emerald Sanchez MD 112 [facility] 110 [place] [address] PCP - Medical [place] Commercial 10/22/18 04/23/99 Emerald Sanchez MD 112 [facility] 110 [place] [address] PCP - General Family Medicine 08/30/22 documented as of this encounter
--- OUTSIDE RECORDS SUMMARY | 2024-12-09 21:59 | XMS_ITS | Encounter Summary ---
Author Organization [facility] Address [address] [facility] [place] [place] [address] Care Team Providers Care Floral Artist Name Role Phone Emerald Sanchez MD Unavailable Emerald Sanchez MD Primary Care Provider [phone] Encounter Details Date Type Department Care Team (Late st Contact Info) Description 09/12/2022 Clinisync Result Encounter [facility] EXT DEP Provider, Generic External Data Social History Tobacco [...] EDT Office Visit [facility] [address] [place] [address] Milton Duvall, DPM FACFAS [address] [place] [address] 12/26/2024 1:20 PM EDT Office Visit [facility] [address] [facility] Riccardo [place] [address] Jatin Cabrera MD [address] [facility] [address] Simeon [address] [place] [address] [phone] documented as of this encounter Procedures Procedure Name Priority Date/Time Associated Diagnosis Comments NM GASTRIC EMPTYING SOLID 09/12/2022 2:44 PM EDT documented in this encounter Results * NM GASTRIC EMPTYING SOLID (09/12/2022 2:44 PM EDT) Anatomical Region Laterality Modality Other 09/12/2022 2:44 PM EDT Narrative 09/12/2022 3:07 PM EDT * * *Final Report* * * DATE OF EXAM: Sep 12 2022 2:44PM [facility] 0017 - NM GASTRIC EMPTYING [...] 4 HOURS IS CONSISTENT WITH SEVERE GASTROPARESIS. Data Management Manager: [facility] Transcribe Date/Time: Sep 12 2022 3:02P Dictated by : LUZ MARINA VÁZQUEZ MD This examination was interpreted and the report reviewed and electronically signed by: LUZ MARINA VÁZQUEZ MD on Sep 12 2022 3:05PM EST [id number] * * *Final Report* * * DATE OF EXAM: Sep 12 2022 2:44PM [facility] 0017 - NM GASTRIC EMPTYING [...] 4 HOURS IS CONSISTENT WITH SEVERE GASTROPARESIS. Data Management Manager: MINAL Transcribe Date/Time: Sep 12 2022 3:02P Dictated by : LUZ MARINA VÁZUQEZ MD This examination was interpreted and the report reviewed and electronically signed by: LUZ MARINA VÁZQUEZ MD on Sep 12 2022 3:05PM EST [id number]^[id number] * * *Final Report* * * DATE OF EXAM: Sep 12 2022 2:44PM [facility] 0017 - NM GASTRIC EMPTYING [...] 4 HOURS IS CONSISTENT WITH SEVERE GASTROPARESIS. Data Management Manager: MINAL Transcribe Date/Time: Sep 12 2022 3:02P Dictated by : LUZ MARINA VÁZQUEZ MD This examination was interpreted and the report reviewed and electronically signed by: LUZ MARINA VÁZQUEZ MD on Sep 12 2022 3:05PM EST [id number] Procedure Note Radiology, Radiologist, - 09/26/2022 * * *Final Report* * * DATE OF EXAM: Sep 12 2022 2:44PM N 0017 - NM GASTRIC EMPTYING SOLID / [...] 4 HOURS IS CONSISTENT WITH SEVERE GASTROPARESIS. Data Management Manager: MINAL Transcribe Date/Time: Sep 12 2022 3:02P Dictated by : LUZ MARINA VÁZQUEZ MD This examination was interpreted and the report reviewed and electronically signed by: LUZ MARINA VZÁQUEZ MD on Sep 12 2022 3:05PM EST [id number] * * *Final Report* * * DATE OF EXAM: Sep 12 2022 2:44PM N 0017 - NM GASTRIC EMPTYING SOLID / [...] 4 HOURS IS CONSISTENT WITH SEVERE GASTROPARESIS. Data Management Manager: [facility] Transcribe Date/Time: Sep 12 2022 3:02P Dictated by : LUZ MARINA VÁZQUEZ MD This examination was interpreted and the report reviewed and electronically signed by: LUZ MARINA VÁZQUEZ MD on Sep 12 2022 3:05PM EST [id number]^ACN * * *Final Report* * * DATE OF EXAM: Sep 12 2022 2:44PM [facility] 0017 - NM GASTRIC EMPTYING [...] 4 HOURS IS CONSISTENT WITH SEVERE GASTROPARESIS. Data Management Manager: MINAL Transcribe Date/Time: Sep 12 2022 3:02P Dictated by : LUZ MARINA VÁZQUEZ MD This examination was interpreted and the report reviewed and electronically signed by: LUZ MARINA VÁZQUEZ MD on Sep 12 2022 3:05PM EST [id number]^[id number]^SI^ACN us Emerald Sanchez MD [facility] Final Result documented in this encounter Visit Diagnoses Not on filedocumented in this encounter Care Teams Floral Artist Relationship Specialty Start Date End Date Emerald Sanchez MD [address] [facility] [address] [place] [address] PCP - Medical [place] [employer] 10/22/18 04/23/99 Emerald Sanchez MD [address] [facility] 110 [place] [address] PCP - General Family Medicine 08/30/22 documented as of this encounter
--- OUTSIDE RECORDS SUMMARY | 2024-12-09 21:59 | XMS_ITS | Encounter Summary ---
Author Organization [facility] Address [address] [place] [address] Care Team Providers Care Bookkeeping Clerk Name Role Phone Emerald Sanchez MD Primary Care Provider [phone] Deena Osorio FLOOR STEWARD/STEWARDESS Unavailable [phone] Darwin Starr DO Unavailable [phone] Source Comments In the event this information is protected by the Federal Confidentiality of Alcohol and Drug AbusePatient Records regulations: The Federal rules restrict any use of the information to criminally investigate or prosecute any alcohol or drug abuse patient.[facility] Encounter Details Date Type Department Care Team (Late st Contact Info) Description 05/15/2024 Patient Msg Gastroenterology [address] [place] [id number] Provider, [facility] colon prep Social History Tobacco Use Types Packs/Day Years [...] is lower risk 4 10/17/2022 Data from: https://www.neighborhoodatlas.medicine.[facility].edu/. Last address used for calculation 5234 [...] Office Visit Gynecology [address] [place] [address] Emma Ying APRN.PICKLING MACHINE OPERATOR [address] [place] [address] Other specified dyspareunia documented as of this [...] documented as of this encounter Care Teams Bookkeeping Clerk Relationship Specialty Start Date End Date Emerald Sanchez MD [address] [place] [address] [place] [address] PCP - General Family Medicine 03/27/19 Deena Osorio, FLOOR STEWARD/STEWARDESS [address] [place] [address] [place] [address] Referring Family Medicine 04/03/24 Darwin Starr DO [address] [place] [address] Referring Student Teacher 07/02/24 documented as of this encounter
--- OUTSIDE RECORDS SUMMARY | 2024-12-09 21:59 | XMS_ITS | Encounter Summary ---
Author Organization [facility] Address [address] [facility] [place] [address] Care Team Providers Care Shower Doors And Panels Fabricator Name Role Phone Emerald Sanchez MD Unavailable Emerald Sanchez MD Primary Care Provider [phone] Encounter Details Date Type Department Care Team (Late st Contact Info) Description 01/15/2024 Abstract [facility] [address] [facility] 110 [place] [address] Emerald Sanchez MD [address] [place] [address] [place] [address] Social History Tobacco Use Types Packs/Day Years [...] often do you attend chur ch or hindu services? Never 04/18/2023 Do you belong to [...] and heating? Not hard at all 04/18/2023 [facility] Occupat ional [facility] - Occupational [...] a senior care (including now)? No 04/18/2023 Comments No Sex [...] EDT Office Visit [facility] [address] [place] [address] Milton Duvall, DPM FACFAS [address] [place] [address] 12/26/2024 1:20 PM EDT Office Visit [facility] [address] [facility] [address] [place] [address] Jatin Cabrera MD 8335 [facility] [address] [address] documented as of this encounter Goals Goal [...] documented as of this encounter Care Teams Shower Doors And Panels Fabricator Relationship Specialty Start Date End Date Emerald Sanchez MD [address] [place] [address] [place], [place] [address] PCP - Medical [place] [employer] 10/22/18 04/23/99 Emerald Sanchez MD [address] [place] [address] [place] [address] PCP - General Family Medicine 08/30/22 documented as of this encounter
--- OUTSIDE RECORDS SUMMARY | 2024-12-09 21:59 | XMS_ITS | Encounter Summary ---
Author Organization [facility] Address [address] [facility] [place] [address] Care Team Providers Care Cdl Company Driver Name Role Phone Emerald Sanchez MD Unavailable Emerald Sanchez MD Primary Care Provider Encounter Details Date Type Department Care Team (Late st Contact Info) Description 04/09/2024 Orders Only [facility] [address] [facility] [place] [phone] Patricia Waldrop MA [address] [place] [address] Social History Tobacco Use Types Packs/Day Years [...] friends, or neighbors? Three times a week 12/26/20 23 How often do you get togethe r with friends or relatives? Twice a week 04/18/2023 How often do you attend chur ch or oriental orthodox services? Never 04/18/2023 Do you belong to any clubs o r organizations such as advent groups, unions, fraternal or athletic groups, or [...] and heating? Not hard at all 04/18/2023 [facility] of Occupat ional Health - Occupational Stress [...] Office Visit [facility] N[facility] POD [address] [place] [address] Milton Duvall, DPM FACFAS [address] [place] [address] 12/26/2024 1:20 PM EDT Office Visit [facility] [address] [facility] 310 [place] [address] Jatin Cabrera MD [address] [facility] [address] [id number] documented as of this encounter Goals Goal Patient Goal Type Associated Problems Recent Progress Patient-Stated? Author Help patient manage antidepressant medication Care Plan Patient on antidepressant monitoring plan No Emerald Sanchez MD Baseline PHQ-9 Care Plan Baseline PHQ-9 No Emerald Sanchez MD documented as of this encounter Procedures Procedure Name Priority Date/Time Associated Diagnosis Comments PAP SMEAR Routine 03/20/2024 12:00 AM EST documented in this encounter Results * Pap Smear (03/20/2024 12:00 AM EST) Swab Cervical swab / Unknown us Darwin Mcleodo DO LAB CYTOLOGY ORDERABLES Final Re sult EXTERNAL LAB documented in this encounter Visit Diagnoses Not on filedocumented in this encounter Additional Health Concerns Active Problems Noted Date Diagnosed Date Patient on antidepressant monitoring plan 2023 Baseline PHQ-9 05/08/2023 documented as of this encounter Care Teams Cdl Company Driver Relationship Specialty Start Date End Date Emerald Sanchez MD 112 [facility] 110 [place] [address] PCP - Medical [place] [employer] 10/22/18 04/23/99 Emerald Sanchez MD 112 [facility] 110 [place] [address] PCP - General Family Medicine 08/30/22 documented as of this encounter
--- OUTSIDE RECORDS SUMMARY | 2024-12-09 21:59 | XMS_ITS | Encounter Summary ---
Author Organization [facility] Address [address] [facility] [place] [address] Care Team Providers Care Software Development Engineer Name Role Phone Emerald Sanchez MD Unavailable Emerald Sanchez MD Primary Care Provider [phone] Encounter Details Date Type Department Care Team (Late st Contact Info) Description 12/19/2023 Clinisync Result Encounter [facility] External Department Unsolicited [...] week 04/18/2023 How often do you attend [facility] or mandaeism services? Never 04/18/2023 Do you belong to any clubs o r organizations such as spiritism groups, unions, fraternal or athletic groups, or [...] and heating? Not hard at all 04/18/2023 [facility] of Occupat ional Health [...] a senior living (including now)? No 04/18/2023 Comments No Sex [...] EDT Office Visit [facility] N[facility] POD [address] [place] [address] Milton Duvall, DPM FACFAS [address] [place] [address] 12/26/2024 1:20 PM EDT Office Visit [facility] [address] [facility] 310 [place] [address] Jatin Cabrera MD 3688 [facility] [address] [address] documented as of this encounter Goals Goal Patient Goal Type Associated Problems Recent Progress Patient-Stated? Author Help patient manage antidepressant medication Care Plan Patient on antidepressant monitoring plan No Emerald Sanchze MD Baseline PHQ-9 Care Plan Baseline PHQ-9 No Emerald Sanchez MD documented as of this encounter Procedures Procedure Name Priority Date/Time Associated Diagnosis Comments ECG 12-LEAD 12/19/2023 1:51 PM EDT documented in this encounter Results * ECG 12 lead (12/19/2023 1:51 PM EDT) 12/19/2023 1:51 PM EDT Narrative [facility] - 12/30/2023 6:45 PM EDT Ventricular Rate : 88 BPM Atrial Rate : 88 BPM P-R Interval : 148 ms QRS Duration : 78 ms Q-T Interval : 380 ms QTC Calculation(Bazett) : 459 ms Calculated P [place] : 62 degrees Calculated R [place] : 55 degrees Calculated T [place] : 38 degrees NORMAL SINUS RHYTHM NORMAL ECG Confirmed by MD BAH HEBA ([id number]) on 12/30/2023 6:45:12 PM NAME : BELGICA BARNETT PID : [id number] : 1990 Gender : Female Race : Other ORD : [id number] Procedure Date : Dec 19 2023 13:51:58 Edit Date : Dec 30 2023 18:45:15 Diagnosis: NORMAL SINUS RHYTHM NORMAL ECG Confirmed by MD BAH HEBA ([id number]) on 12/30/2023 6:45:12 PM Test Reason : Location : [facility] : [place] [address] Overread By : MD BAH HEBA Edited By : MD BAH HEBA Referred By : , Acquired by : CHELSEY JOSEPH Procedure Note Radiology, Radiologist, - 12/30/2023 Ventricular Rate : 88 BPM Atrial Rate : 88 BPM P-R Interval : 148 ms QRS Duration : 78 ms Q-T Interval : 380 ms QTC Calculation(Bazett) : 459 ms Calculated P [place] : 62 degrees Calculated R [place] : 55 degrees Calculated T [place] : 38 degrees NORMAL SINUS RHYTHM NORMAL ECG Confirmed by MD BAH HEBA ([id number]) on 12/30/2023 6:45:12 PM NAME : MEREDITHREJIBELGICA PID : [id number] : 1990 Gender : Female Race : Other ORD : [id number] Procedure Date : Dec 19 2023 13:51:58 Edit Date : Dec 30 2023 18:45:15 Diagnosis: NORMAL SINUS RHYTHM NORMAL ECG Confirmed by MD BAH HEBA ([id number]) on 12/30/2023 6:45:12 PM Test Reason : Location : [facility] : [place] [address] Overread By : MD BAH HEBA Edited By : MD BAH HEBA Referred By : , Acquired by : CHELSEY JOSEPH us Generic External Data Provider ECG ORDERABLES F inal Result [facility] documented in this encounter Visit Diagnoses Not on filedocumented in this encounter Additional Health Concerns Active Problems Noted Date Diagnosed Date Patient on antidepressant monitoring plan 2023 Baseline PHQ-9 05/08/2023 documented as of this encounter Care Teams Software Development Engineer Relationship Specialty Start Date End Date Emerald Sanchez MD 112 [facility] 110 [place] [address] PCP - Medical [place] [employer] 10/22/18 04/23/99 Emerald Sanchez MD 112 [facility] 110 [place] [address] PCP - General Family Medicine 08/30/22 documented as of this encounter
--- OUTSIDE RECORDS SUMMARY | 2024-12-09 21:59 | XMS_ITS | Encounter Summary ---
Author Organization [facility] Address [address] [facility] [place] [address] Care Team Providers Care Mechanical Development Engineer Name Role Phone Emerald Sanchez MD Unavailable Emerald Sanchez MD Primary Care Provider [phone] Encounter Details Date Type Department Care Team (Late st Contact Info) Description 01/09/2024 Abstract [facility] [address] [facility] 110 [place] [address] Emerald Sanchez MD [address] [place] [address] [place] [address] Social History Tobacco Use Types Packs/Day Years [...] often do you attend chur ch or taoist services? Never 04/18/2023 Do you belong to [...] and heating? Not hard at all 04/18/2023 [facility] Occupat ional Health - [...] EDT Office Visit [facility] NMA POD [address] [place] [address] Milton Duvall, DPM FACFAS 368 [place] [address] 12/26/2024 1:20 PM EDT Office Visit [facility] [address] [facility] 310 [place] [address] Jatin Cabrera MD 8145 [facility] [address] [address] documented as of this encounter Goals Goal [...] documented as of this encounter Care Teams Mechanical Development Engineer Relationship Specialty Start Date End Date Emerald Sanchez MD [address] [place] [address] [place], [place] [phone] PCP - Medical [place] Commercial 10/22/18 04/23/99 Emerald Sanchez MD [address] [place] [address] [place] [address] PCP - General Family Medicine 08/30/22 documented as of this encounter
--- OUTSIDE RECORDS SUMMARY | 2024-12-09 21:59 | XMS_ITS | Encounter Summary ---
Author Organization [facility] Address [address] [facility] [place] [address] Care Team Providers Care Hat Mender Name Role Phone Emerald Sanchez MD Unavailable Emerald Sanchez MD Primary Care Provider [phone] Encounter Details Date Type Department Care Team (Late st Contact Info) Description 05/09/2024 Abstract [facility] [address] [facility] 110 [place] [address] Emerald Sanchez MD [address] [place] [address] [place] [address] Social History Tobacco Use Types Packs/Day Years [...] week 05/09/2024 How often do you attend yazidism or spiritism serv ices? Never 05/09/2024 Do you belong to any clubs o r organizations such as yazidism groups, unions, fraternal or athletic groups, or [...] and heating? Not hard at all 05/09/2024 [facility] - Occupational Stress Questionnaire Answer Date Recorded [...] any time in the past 12 m [facility], were you homeless or living in a penitentiary (including now)? No 05/09/2024 Comments No Sex and Gender Information Value Date Recorded Sex Assigned at Not on file Legal Sex Female 7:29 PM EDT Gender Identity Not on file Sexual Orientation Not on file documented as of this encounter Functional Status * Audit-C Score Answer Date of Assessment Author 3 05/09/2024 9:30 AM EST Mychart, Generic * Q1: How often do you have a drink containing alcohol? Answer Date of Assessment Author 2-4 times a month 05/09/2024 9:30 AM EST Mychart , Generic * Q2: How many drinks containing alcohol do you have on a typical day when you are drinking? Answer Date of Assessment Author 1 or 2 05/09/2024 9:30 AM EST Mychart, Generic * Q3: How often do you have six or more drinks on one occasion? Answer Date of Assessment Author Less than monthly 05/09/2024 9:30 AM EST Mychart , Generic documented as of this encounter Plan of Treatment Upcoming Encounters Date Type Department Care Team (Late st Contact Info) Description 12/13/2024 9:40 AM EDT Office Visit [facility] [address] [place] [facility] [place] [address] Milton Duvall, DPM FACFAS 368 [facility] [place] [address] 12/26/2024 1:20 PM EDT Office Visit [facility] [address] [facility] 310 [place] [address] Jatin Cabrera MD 7600 [facility] [address] [address] documented as of this encounter [...] documented as of this encounter Care Teams Hat Mender Relationship Specialty Start Date End Date Emerald Sanchez MD [address] [facility] 110 [place] [address] PCP - Medical [place] [employer] 10/22/18 04/23/99 Emerald Sanchez MD [address] [facility] 110 [place] [address] PCP - General Family Medicine 08/30/22 documented as of this encounter
--- OUTSIDE RECORDS SUMMARY | 2024-12-09 21:59 | XMS_ITS | Encounter Summary ---
Author Organization [facility] Address [address] [place] [address] Care Team Providers Care It Project Coordinator Name Role Phone Emerald Sanchez MD Primary Care Provider [phone] Deena Osorio SUPERVISORY TRAINING SPECIALIST Unavailable [phone] Darwin Starr DO Unavailable [phone] Source Comments In the event this information is protected by the Federal Confidentiality of Alcohol and Drug AbusePatient Records regulations: The Federal rules restrict any use of the information to criminally investigate or prosecute any alcohol or drug abuse patient.[facility] Encounter Details Date Type Department Care Team (Late st Contact Info) Description 05/21/2024 GI Preprocedure Call Ambulatory Surgery [address] [place] [address] [place] [address] [place] [address] Social History Tobacco Use Types Packs/Day Years [...] is lower risk 4 10/17/2022 Data from: https://www.neighborhoodatlas.medicine.[facility]/. Last address used for calculation 5[address] [...] AM EDT Office Visit Gynecology [address] [place] [address] Emma Ying APRN.DEPARTMENT OF SOCIOLOGY CHAIR [address] [place], [place] [phone] Other specified dyspareunia documented as of this [...] documented as of this encounter Care Teams It Project Coordinator Relationship Specialty Start Date End Date Emerald Sanchez MD [address] [facility] 110 [place] [address] PCP - General Family Medicine 03/27/19 Deena Osorio, SUPERVISORY TRAINING SPECIALIST [address] [facility] 110 [place] [address] Referring Family Medicine 04/03/24 Darwin Starr DO [address] [place] [address] Referring Case Management Social Worker 07/02/24 documented as of this encounter
--- OUTSIDE RECORDS SUMMARY | 2024-12-09 22:00 | XMS_ITS | Encounter Summary ---
Author Organization [facility] Address [address] [facility] [place] [address] Care Team Providers Care Electric Arc Welder Name Role Phone Emerald Sanchez MD Unavailable Emerald Sanchez MD Primary Care Provider [phone] Encounter Details Date Type Department Care Team (Late st Contact Info) Description 10/12/2023 Abstract [facility] [address] [facility] 110 [place] [address] Emerald Sanchez MD [address] [place] [address] [place] [address] Social History Tobacco Use Types Packs/Day Years [...] often do you attend chur ch or islam services? Never 04/18/2023 Do you belong to [...] and heating? Not hard at all 04/18/2023 [facility] of Occupat ional Health [...] EDT Office Visit [facility] NMA POD [address] [place] [address] Milton Duvall, DPM FACFAS 368 [place] [address] 12/26/2024 1:20 PM EDT Office Visit [facility] [address] [facility] 310 [place] [address] Jatin Cabrera MD 6712 [facility] [address] [address] documented as of this encounter Goals Goal [...] as of this encounter Care Teams Electric Arc Welder Relationship Specialty Start Date End Date Emerald Sanchez MD [address] [place] [address] [place], [place] [address] PCP - Medical [place] [employer] 10/22/18 04/23/99 Emerald Sanchez MD [address] [place] [address] [place] [address] PCP - General Family Medicine 08/30/22 documented as of this encounter
--- OUTSIDE RECORDS SUMMARY | 2024-12-09 22:00 | XMS_ITS | Encounter Summary ---
Author Organization [facility] Address [address] [place] [address] Care Team Providers Care Talent Acquisition Program Manager Name Role Phone Emerald Sanchez MD Primary Care Provider [phone] Deena Osorio APRN Unavailable [phone] Darwin Starr DO Unavailable [phone] Source Comments In the event this information is protected by the Federal Confidentiality of Alcohol and Drug AbusePatient Records regulations: The Federal rules restrict any use of the information to criminally investigate or prosecute any alcohol or drug abuse patient.[facility] Encounter Details Date Type Department Care Team (Late st Contact Info) Description 09/14/[address] [facility] [address] [place] [address] Provider, C[facility] EGG Test Instructions Social History Tobacco Use Types Packs/Day Years [...] N ot on file 05/27/2022 Data from: https://www.neighborhoodatlas.medicine.[facility].edu/. Last address used for calculation [address] [...] Office Visit Gynecology [address] [place] [address] Emma Ying APRN.EYE TECHNICIAN [address] [place] [address] Other specified dyspareunia documented as of this encounter Visit Diagnoses Not on filedocumented in this encounter Additional Health Concerns Infection Onset Date Last Indicated Resolved Time C. difficile 05/22/2024 05/22/2024 06/21/2024 8:51 PM EST documented as of this encounter Care Teams Talent Acquisition Program Manager Relationship Specialty Start Date End Date Emerald Sanchez MD [address] [facility] [address] [place] [address] PCP - General Family Medicine 03/27/19 Deena Osorio APRN [address] [facility] [address] [place] [address] Referring Family Medicine 04/03/24 Darwin Starr DO [address] [facility] [place] [address] Referring Company Accountant 07/02/24 documented as of this encounter
--- OUTSIDE RECORDS SUMMARY | 2024-12-09 22:00 | XMS_ITS | Clinical Summary ---
Author Organization [facility] Address [id number] [address] [place] [address] Care Team Providers Care Bed Laborer Name Role Phone Unavailable Primary Care Provider Unavailabl e Social History Tobacco Use Types Packs/Day Years Used Date Smoking Tobacco: Never Assessed Childcare Answer Date Recorded Childcare Unknown 10/03/2018 Employment Answer Date Recorded Employment Unknown 10/03/2018 Purpose - Life Answer Date Recorded Purpose and direction in life Unknown Comments Unknown Sex and Gender Information Value Date Recorded Sex Assigned at Not on file Legal Sex Female 12:08 PM EDT Gender Identity Not on file Sexual Orientation Not on file Plan of Treatment Health Maintenance Due Date Last Done Comments Depression Screening 2000 Tobacco Screening 2000 Adult BMI Screening 2006 DTaP,Tdap and Td Vaccines (1 - Tdap) 09/29/2007 Pap Smear 2009 Influenza Vaccine 12/23/2024 Medical Devices Not on file Insurance [employer]
--- OUTSIDE RECORDS SUMMARY | 2024-12-09 22:00 | XMS_ITS | Patient Health Record ---
Author Organization [facility] Address [address] [place] [address] [place] [address] Care Team Providers Care Threader Operator Name Role Phone Emerald Sanchez MD Primary Care Provider Mary Cortés MD, Brandyn Unavailable [phone] Allergies Allergen (clinical drug ingredient) Drug/Non Drug Allergy documented on EMR Reaction Allergy Type Onset Date Status CT scan dye (uncoded) Unknown Allergy Active Reason For Referral No Information Medications Medication SIG (Take, Route, Fr equency, Duration) Notes Start Date End Date Status Vraylar 4.5 MG 1 capsule Orally Once a day Active Wellbutrin Active Xanax 0.25 MG 1 tablet Orally Twice a day Active Vyvanse 50 MG 1 capsule in the mor lydia Orally Once a day Active Social History Tobacco Use: Social History Observation Description Date Details (start date - stop date) Former Smoker NA - NA Tobacco Use/Smoking Question Answer Notes Are you a: former smoker Alcohol Screen (Audit-C) Question Answer Notes Did you have a drink containing alcohol in the p ast year? Yes Points 0 Interpretation Negative Problems Problem Type SNOMED Code ICD Code Onset Dates Problem Status W/U Status Risk Notes Problem Postoperative care (regime/therapy) (215903287) Encounter for postoperative care (Z48.89) Active confirmed Problem Cholecystitis (63412469) Cholecystitis (K81.9) Active confirmed Problem Acute pancreatitis (974562150) Acute biliary pancreatitis without infection or necrosis (K85.10) Active confirmed Plan Of Treatment No Information Insurance Providers Payer Name Payer Address Payer Phone Subscriber Number Group Number Insured Name Patient Relationship to Insured Coverage Start Date Coverage End Date Medical [facility] [address] [place] [address] [id number] Belgica Barnett Self - patient is the insured Medical (General) History Medical History History ICD Code asthma Surgical History Surgery Date(Month/Year) daVinci assisted laparoscopic cholecyste ctmy C-sections x 3 colonoscopy egd
--- OUTSIDE RECORDS SUMMARY | 2024-12-09 22:00 | XMS_ITS | Encounter Summary ---
Author Organization [facility] Address [address] [address] Care Team Providers Care Handle Finisher Name Role Phone Emerald Sanchez MD Unavailable Emerald Sanchez MD Primary Care Provider [phone] Encounter Details Date Type Department Care Team (Late st Contact Info) Description 10/23/2023 Abstract [facility] [address] [facility] [address] [place] [id number] Emerald Sanchez MD [address] [place] [address] [place] [address] Social History Tobacco Use Types Packs/Day Years [...] any clubs o r organizations such as hoahaoism groups, unions, fraternal or athletic groups, or [...] Not hard at all 04/18/2023 [facility] - [facility] [...] EDT Office Visit [facility] [address] [place] [address] Milton Duvall, DPM [facility] [address] [place] [address] 12/26/2024 1:20 PM EDT Office Visit [facility] [address] [facility] [address] [place] [address] Jatin Cabrera MD [address] [facility] [address] [address] documented as of this encounter Goals Goal [...] documented as of this encounter Care Teams Handle Finisher Relationship Specialty Start Date End Date Emerald Sanchez MD [address] [place] [address] [place], [place] [id number] PCP - Medical [place] [employer] 10/22/18 04/23/99 Emerald Sanchez MD [address] [place] [address] [place] [address] PCP - General Family Medicine 08/30/22 documented as of this encounter
--- OUTSIDE RECORDS SUMMARY | 2024-12-09 22:00 | XMS_ITS | CCD ---
Author Organization [facility] Care Team Providers Care Avionics Systems Engineer Name Role Phone OZIEL MONTEIRO Referring Unavailable [...] Unavailable RED, MARIA DOLORES Consulting Unavailable ASAAD, ERWIN Consulting Unavailable HIEU, DR MATUTE Primary Care [...] Consulting Unavailable MD Erwin Hylton Attending Provider [phone] MD Giovani Hagen Primary Care Provider Giovani Hagen MD Primary Care Provider [phone] MARY ANGEL Admitting Unavailable BLOOD, MARY Culver Attending Unavailable JACKSON MONTENEGRO Consulting Unavailable SONIYA PATEL Referring Unavailable HIEU, [facility] Primary Care Unavailable MAKENNA AMAYA Consulting Unavailable [facility]agen [facility] Giovani Hagen MD Unavailable Giovani Hagen MD Primary Care Provider [phone] Deena Lyn CNP Unavailable SOLO MORA Referring Unavailable HIEU, GIOVANI [facility] Primary Care Unavailable Matty CASTANEDA, Darwin R Unavailable Madhuri MISHRA Attending Unavailable BHAVESH DEJESUS Attending Unavailable Giovani Hagen MD Primary Care Provider [phone] Dank Green MD Admit Provider Dank Green MD Attending Provider Dank Green Admitting Unavailab Rahul Ugarte Attending Unavailable Hieu, Rugen M Primary Care Unavailable DOLBRAN, MILTON Roth Attending Unavailable DOLBRAN, MILTON Roth Referring Unavailable AYLEEN KRISHNAMURTHY Attending Unavailable HIEU, RUGARELY Bob Attending Unavailable PRATEEK PEDRAZA Attending Unavailable DARWIN STARR Attending Unavailable DOLCE, MILTON Roth Attending Unavailable DOLCE, MILTON Roth Attending Unavailable DOLBRAN, MILTON Roth Referring Unavailable HIEU, GIOVANI Bob Attending Unavailable DOLCE, MILTON Roth Attending Unavailable HIEU, GIOVANI Bob Attending Unavailable DOLCE, MILTON Roth Attending Unavailable DOLCE, MILTON Roth Attending Unavailable HIEU, RUGEN M Attending Unavailable HIEU, RUGEN M Attending Unavailable HIEU, RUGEN M Attending Unavailable DARWIN STARR Attending Unavailable ZHEN BURGESS Attending Unavailable HIEU, RUGEN M Referring Unavailable HIEU, RUGEN M Attending Unavailable ARUN HERNADEZ Attending Unavailable HIEU, RUGEN M Referring Unavailable ZHEN BURGESS Attending Unavailable HIEU, RUGEN M Referring Unavailable HIEU, RUGEN M Attending Unavailable DOLMILTON SOTOMAYOR Attending Unavailable HIEU, RUGEN M Attending Unavailable SANDY ARMENTA Attending Unavailable DEENA LYN Attending Unavailable RIKIDEENA FERGUSON Attending Unavailable SHANNON DARDEN Attending Unavailab ARUN Geronimo Attending Unavailable HIEU, RUGEN M Referring Unavailable [...] Unavailable HIEU, RUGEN M Referring Unavailable HIEU, GIOVANI M Attending Unavailable BASLILY KNUTSONI S Attending Unavailable DARWIN STARR Referring Unavailable HIEU, [facility] Primary Care Unavailable LYDIA KELLEY Attending Unavailab le HIEU, [facility] Primary Care Unavailable ILIANA MERCADO Referring Unavailable HIEU, [facility] Primary Care Unavailable KOCHAR, ARSHNEEL Referring Unavailable HIEU, [facility] Primary Care Unavailable LYDIA ROCK Attending Unavailable MARIO HARPER Referring Unavailable HIEU, [facility] Primary Care Unavailable KOCHLOLI, SOLO Attending Unavailable HIEU, [facility] Primary Care Unavailable ILIANA MERCADO Attending Unavailable HIEU, [facility] Primary Care Unavailable OBED BHATT Attending Unavailable ILIANA MERCADO Referring Unavailable HIEU, [facility] Primary Care Unavailable JANUSZ, JAVY S Referring Unavailable HIEU, [facility] Primary Care Unavailable ILIANA MERCADO Referring Unavailable HIEU, [facility] Primary Care Unavailable ILIANA MERCADO Referring Unavailable HIEU, [facility] Primary Care Unavailable HIEU, [facility] Primary Care Unavailable KOCHAR, ARSHNEEL Referring Unavailable HIEU, [facility] Primary Care Unavailable MARIO HARPER Referring Unavailable HIEU, [facility] Primary Care Unavailable KOCHAR, ARSHNEEL Referring Unavailable HIEU, [facility] Primary Care Unavailable KOCHPONCHO ENNISL Attending Unavailable KOCHAR, ARSHNEEL Referring Unavailable HIEU, [facility] Primary Care Unavailable MARIO HARPER Attending Unavailable DAKHIL, NOMA Referring Unavailable HIEU, [facility] Primary Care Unavailable MARIO HARPER Attending Unavailable HIEU, [facility] Primary Care Unavailable MARIO HARPER Referring Unavailable HIEU, [facility] Primary Care Unavailable HIEU, [facility] Primary Care Unavailable ILIANA MERCADO Referring Unavailable Allergies Allergy Classification Reported Allergen(s) Allergy Type Date of Onset Reaction(s) Facility Iodine (and Iodine containting drugs) (2 sources) Iodine Drug Allergy 04-11-20 19 Swelling, Itching [facility] Iohexol (2 sources) Iohexol Drug Allergy 04-12-20 19 Itching [facility] (20 sources) Iodine; Translations: [IODINE] Drug Allergy 04-11-20 Swelling, Itching [facility] (20 sources) Iohexol; Translations: [IOHEXOL] Drug Allergy 04-12-20 Itching [facility] (1 source) Cat Propensity to adverse reactions anaphylaxis [facility] Other (14 sources) tree nut, unspecified; Translations: [TREE NUTS] Propensity to adverse reactions 07-11-19 anaphylaxis [facility] Other (1 source) peanut allergenic extract Drug Allergy [facility] (1 source) Cat/Feline Product Derivatives Drug allergy (disorder) 01-08-20 13 [facility] (20 sources) Cat Hair Extract Allergy to substance 12-01-19 Anaphylaxis [facility] (20 sources) Iodinated Contrast Media; Translations: [IODINATED CONTRAST MEDIA] Drug Allergy 04-12-20 Hives, Anaphylaxis, Itching [facility] (20 sources) Prednisone & Diphenhydramine Drug Allergy 10-03-19 24 [facility] (14 sources) Cat Dander; Translations: [cat dander] Drug Allergy 05-03-19 Anaphylaxis [facility] (1 source) No Known Medication Allergies; Translations: [No Known Medication Allergies] Propensity to adverse reactions (disorder) [facility] Repository (1 source) tree nut, unspecified Drug allergy (disorder) 05-03-19 [facility] Repository Medications Current Medications Medication Drug Class(es) Dates Sig (Normalized) Sig (Original) acetaminophen 1000 mg oral tablet (3 sources) Start: 06-12-2018 take 1000 mg by mouth once daily as needed for pain Tylenol 1,000 mg, Oral, Daily, PRN as needed for pain, Refills(s) 0 Start Date: 06/12/18 Status: Ordered acetaminophen 325 mg / HYDROcodone bitartrate 5 mg oral tablet (9 sources) Opioid Agonist Start: 09-06-2024 End: 09-17-2024 take 1 tablet by mouth every four hours as needed HYDROcodone-acetami nophen (Gays) 5-325 MG tablet Take 1 tablet by mouth every 4 (four) hours if needed 09/06/2024 09/17/2024 Discontinued (Therapy completed) Start: 05-09-2024 End: 05-14-2024 take 1 tablet by mouth every six hours for pain HYDROcodone-acetaminophen (Gays) 5-325 MG tablet Indications: Cervical radiculopathy due to degenerative joint disease of spine Take 1 tablet by mouth every 6 (six) hours if needed for severe pain for up to 5 days 20 tablet 05/09/2024 05/14/2024 Active Start: 04-16-2024 End: 04-21-2024 take 1 tablet by mouth every six hours for pain HYDROcodone-acetaminophen (Gays) 5-325 MG tablet Indications: Sprain of anterior talofibular ligament of right ankle, subsequent encounter Take 1 tablet by mouth every 6 (six) hours if needed for severe pain for up to 5 days 20 tablet 04/16/2024 04/21/2024 [id number] 200 actuat albuterol 0.09 mg/actuat metered dose [...] Provider: Concetta Hood ( ) Start: 08-06-2024 End: 10-08-2024 take 2 puff(s) by inhalation every six hours for wheezing albuterol HFA 90 mcg/act inhaler Indications: Mild intermittent asthma without complication (HCC) Inhale 2 puffs every 6 (six) hours if needed for wheezing 18 g 3 10/08/2024 Active Start: 04-16-2024 End: 04-16-2025 albuterol (2.5 MG/3ML) 0.083 % nebulizer solution Indications: Moderate persistent asthmatic bronchitis with acute exacerbation (HCC) [...] 4 hrs Active 24 hr amphetamine aspartate 7.5 mg / amphetamine sulfate 7.5 mg / dextroamphetamine saccharate 7.5 mg / dextroamphetamine sulfate 7.5 mg extended release oral capsule (20 sources) Central Nervous System Stimulant Start: 08-16-2024 take 1 capsule by mouth once daily in the morning Dextroamphetamine-Amphetamine 10 mg capsule,extended release 24hr Active 10 MG PO Every morning August 16, 2024 12:00am Start: 07-16-2024 End: 11-07-2024 take 1 capsule by mouth every twenty-four hours in the morning amphetamine-dextroamphetamine XR (Addera ll XR) 10 MG 24 hr capsule Indications: Attention deficit hyperactivity disorder (ADHD), predominantly inattentive type , Bipolar disorder, in partial remission, most recent episode manic (HCC) , Agoraphobia with panic attacks Take 1 capsule (10 mg) by mouth in the morning. Do not crush or chew. Take with the 30mg tablet. 30 capsule 10/08/2024 11/07/2024 Active Start: 07-16-2024 End: 11-07-2024 take 1 capsule by mouth once daily amphetamine-dextroamphetamine XR (Addera ll XR) 30 MG 24 hr capsule Indications: Attention deficit hyperactivity disorder (ADHD), predominantly inattentive type Take 1 capsule (30 mg) by mouth Daily Do not crush or chew. Take with the 10mg daily 30 capsule 10/08/2024 11/07/2024 Active Start: 06-06-2024 End: 07-06-2024 take 1 [...] capsules by mouth at bedtime Bis Subcit Zct-Cmiaw-Lmwmrmbt (PYLERA) 140-125-125 mg per capsule Take 3 capsules by mouth before meals and at bedtime for 10 days. 120 capsule 0 07/04/2022 07/14/2022 Active Comment on above: Take 3 capsules by m outh before meals and at bedtime for 10 days. 24 hr buPROPion hydrochloride 150 mg extended release oral tablet (20 sources) Aminoketone Start: 09-13-2024 take 1 tablet by mouth every twenty-four hours in the morning buPROPion XL (Wellbutrin XL) 150 MG 24 hr tablet Take 150 mg by mouth in the morning. 09/13/2024 Active Start: 06-29-2022 Wellbutrin SR Oral, BID Start [...] Start: 08-16-2024 take 1 capsule by mo uth at bedtime Cariprazine (Vraylar) 4.5 mg capsule [...] days. 20 tablet 04/18/2024 04/28/2024 Active cephalexin 500 mg oral capsule (20 sources) Cephalosporin Antibacterial Start: 5 End: 5 take 1 capsule by mouth in the morning cephalexin (Keflex) 500 MG capsule Indications: Urinary tract infection without hematuria, site unspecified Take 1 capsule (500 mg) by mouth in the morning and 1 capsule (500 mg) before bedtime. 20 capsule 10/08/2024 Active Start: 08-17-2024 End: 09-02-2024 cephalexin (Keflex) 250 MG c apsule Take 250 mg by mouth 08/17/2024 09/02/2024 Discontinued (Other) Start: 03-13-2024 End: 08-01-2024 cephalexin (Keflex) 250 MG c apsule TAKE 1 CAPSULE BY MOUTH AFTER INTERCOURSE TO PREVENT UTI 03/13/2024 08/01/2024 Discontinued (Other) Start: 12-28-2023 Keflex 250 mg Cap See Instructions, 1 cap po after intercourse to prevent UTI, # 20 cap(s), Refills(s) 2, Pharmacy: [facility]/pharmacy #[id number], 158, cm, 12/28/23 15:24:00 EDT, [...] days., # 50 cap(s), Refills(s) 0, Pharmacy: [facility]/pharmacy #[id number], 158, cm, 06/29/22 8:19:00 EST, [...] oral capsule (20 sources) Tricyclic Antidepressant Start: 10-03-2024 take 1 capsule by mouth at bedtime clomiPRAMINE (Anafranil) 50 MG capsule Indications: Anxiety , Trichotillomania TAKE 1 CAPSULE BY MOUTH AT BEDTIME 30 capsule 6 10/03/2024 Active Start: 08-01-2024 End: 09-02-2024 take 1 capsule by mouth at bedtime [...] before bedtime. 60 tablet 04/01/2024 05/01/2024 Active cloNIDine hydrochloride 0.1 mg oral tablet (18 sources) Central alpha-2 Adrenergic Agonist cloNIDine (Catapres) 0.1 MG tablet 1 (one) time each day at the same time Active dicyclomine hydrochloride 10 mg oral capsule (10 sources) Anticholinergic Start: 09-26-2024 End: 09-26-2025 take 2 capsules by mouth three times daily as needed dicyclomine (Bentyl) 10 MG capsule Indications: Cramp, abdominal Take 2 capsules (20 mg) by mouth 3 (three) times a day as needed (cramping) 240 capsule 11 09/26/2024 09/26/2025 Active escitalopram 20 mg oral tablet (20 sources) Serotonin Reuptake Inhibitor Start: 06-06-2024 End: 10-10-2024 take 1.5 tablets by mouth in the morning escitalopram (Lexapro) 20 MG tablet Indications: Bipolar disorder, in partial remission, most recent episode manic (HCC) Take 1.5 tablets (30 mg) by mouth in the morning. 45 tablet 2 06/06/2024 10/10/2024 Discontinued Start: 11-09-2023 End: 06-06-2024 take 1 tablet [...] take 1 puff(s) by inhalation once daily Mzmaxogxmqp-Avoyzdtor-Jgecos (Trelegy Ellipta) 100-62.5-25 MCG/ACT aerosol powder Indications: Moderate persistent asthmatic bronchitis with acute exacerbation (HCC) INHALE 1 PUFF DAILY 60 each 2 09/03/2024 Active Start: 04-16-2024 End: 06-25-2024 take 1 puff(s) by inhalation once daily Qtabpmvyltd-Zfqbnkykc-Jjctqk 100-62.5-25 MCG/ACT aerosol powder Indications: Moderate persistent asthmatic bronchitis with acute exacerbation (CMS/HCC) Inhale 1 puff Daily 1 each 04/16/2024 06/25/2024 Discontinued Start: 05-24-2022 take 1 puff(s) by inhalation once daily Pgtittleamr-Jfrtraukn-Uxjxtv 100-62.5-25 MCG/ACT aerosol powder INHALE 1 PUFF INTO THE LUNGS EVERY DAY FOR 30 DAYS 05/24/2022 Active Start: 05-24-2022 End: 11-02-2022 TRELEGY ELLIPTA 100-62.5-25 mcg inhalation powder 05/24/2022 11/02/2022 Discontinued fluticasone/umeclidin/vilant er (TRELEGY ELLIPTA INHALATION) (14 sources) fluticasone/umec lidin/vilanter (TRELEGY ELLIPTA INHALATION) Inhale as instructed. Active hydrocortisone acetate 25 mg rectal suppository (20 sources) Corticosteroid S t a r t [...] PTSD (post-traumatic stress disorder) (CMS/HCC) Take 1 capsule (25 mg) by [...] Ordered lidocaine 50 mg/ml rectal cr eam (20 sources) Antiarrhythmic , Amide Local Anesthetic S t a r t : 0 3 - 1 7 - 2 0 2 5 E n d : 0 5 - 2 7 - 2 0 2 5 AneCream5 5 % cream APPLY 1 APPLICATION TOPICALLY FOUR TIMES DAILY NEEDED FOR PAIN 07/08/2024 09/17/2024 Discontinued (Other) Start: 05-03-2019 take 15 mL by mouth every three hours as needed for pain Lidocaine Viscous 2 % gargle 15 ml as needed for pain Mouth/Throat every 3 hrs Apr, Not-Taking 24 hr metoprolol succinate 25 mg extended release oral tablet (20 sources) beta-Adrenergic Taylor Start: 08-13-2024 End: 11-11-2024 take 1 tablet by mouth once daily metoprolol succinate XL (Toprol-XL) 25 MG 24 hr tablet Indications: Hypercholesterolemia Take 1 tablet (25 mg) by mouth Daily 100 tablet 3 09/19/2024 Active montelukast 10 mg oral tablet (20 sources) Leukotriene Receptor Antagonist Start: 04-01-2024 End: 04-01-2025 take 1 tablet by mouth at bedtime montelukast (Singulair) 10 MG tablet Indications: Mild intermittent asthma without complication (HCC) Take 1 tablet (10 mg) by mouth at bedtime 30 tablet 11 04/01/2024 04/01/2025 Active OXcarbazepine 300 mg oral tablet (5 sources) Anti-epileptic Agent Start: 10-10-2024 End: 11-16-2024 take 0.5 tablet by mouth at bedtime, then take 1 tablet by mouth at bedtime OXcarbazepine (Trileptal) 300 MG tablet Indications: Numbness and tingling , Atypical migraine Take 0.5 tablets (150 mg) by mouth at bedtime for 7 days, THEN 1 tablet (300 mg) at bedtime. 34 tablet 11 10/10/2024 11/16/2024 Active phentermine hydrochloride 37.5 mg oral tablet (20 sources) Sympathomimetic Amine Anorectic Start: 07-16-2024 End: 10-10-2024 take 1 tablet by mouth in the morning phentermine (Adipex-P) 37.5 MG tablet Indications: Obesity (BMI 35.0-39.9 without comorbidity) TAKE 1 TABLET (37.5 MG) BY MOUTH IN THE MORNING 30 tablet 08/29/2024 10/10/2024 Discontinued Start: 12-04-2023 End: 05-30-2024 take 1 tablet by mouth before mealtime phentermine (Adipex-P) 37.5 MG tablet Indications: Obesity (BMI 35.0-39.9 without comorbidity) Take 1 tablet (37.5 mg) by mouth in the morning. Take before meals. 30 tablet 04/30/2024 Active predniSONE 10 mg oral tablet (20 sources) Start: 10-08-2024 End: 10-24-2024 take 4 tablets by mouth once daily, then take 3 tablets by mouth once daily, then take 2 tablets by mouth once daily, then take 1 tablet by mouth once daily predniSONE (Deltasone) 10 MG tablet Indications: Inflammation and stiffening of spine Take 4 tablets (40 mg) by mouth Daily for 4 days, THEN 3 tablets (30 mg) Daily for 4 days, THEN 2 tablets (20 mg) Daily for 4 days, THEN 1 tablet (10 mg) Daily for 4 days. 40 tablet 10/08/2024 10/10/2024 Discontinued Start: 08-14-2024 End: 08-24-2024 take 1 tablet [...] 4 days. 40 tablet 12/26/2023 01/22/2024 Discontinued propranolol hydrochloride 10 mg oral tablet (5 sources) beta-Adrenergic Taylor Start: 09-30-2024 propranolol (Inderal) 10 MG tablet every 12 (twelve) hours 09/30/2024 Active 24 hr QUEtiapine 50 mg extended release oral tablet (16 sources) Atypical Antipsychotic Start: 09-13-2024 take 1 tablet by mouth every twenty-four hours at bedtime QUEtiapine XR (SEROquel XR) 50 MG 24 hr tablet Take 50 mg by mouth at bedtime 09/13/2024 Active radiopaque pvc markers-barium sulfate (SITZMARKS) 24 Markers (1 source) Start: 10-09-2024 End: 10-09-2024 take 2 capsules by mouth once radiopaque pvc markers-barium sulfate (SITZMARKS) 24 Markers Take 2 capsules by mouth one time only for 1 dose. Take 2 capsules as directed. 2 capsule 10/09/2024 10/09/2024 Active tiZANidine 4 mg oral tablet (20 sources) Central alpha-2 Adrenergic Agonist Start: 07-24-2024 [...] 01/22/2024 Discontinued citalopram 10 mg oral tablet (13 sources) Serotonin Reuptake Inhibitor Start: 08-19-2024 End: [...] 12/19/2023 Discontinued (Other) take 1 capsule by [facility] every twenty-four hours Vyvanse 50 MG 1 [...] Comment on above: TAKE 1 CAPSULE BY [facility] EVERY DAY IN THE MORNING FOR 30 [...] Comment on above: Take 1 tablet by vnana once daily. Take 1 tablet by vanna th twice daily before meals for 10 days. Take 1 tablet by vanna th twice daily before meals for 14 days. promethazine hydrochloride 12.5 mg oral tablet (17 sources) Phenothiazine Start: 04-11-20 End: 07-11-19 25 take 1 tablet by mouth every six [...] tablet (2 mg) by mouth once daily. 0.25 mg, 0.5 mg dose 1.5 ml semaglutide 1.34 mg/ml pen injector (20 sources) Start: 06-07-2024 End: 09-17-2024 semaglutide (Ozempic) injection 0.25 mg Semaglutide,0.25 or 0.5MG/DOS, (Ozempic, 0.25 or 0.5 [...] Classification Problem Date Documented Da te Episodic/Chronic Acute bronchitis (2 sources) Acute bronchitis; Translations: [Acute bronchitis, unspecified] 04-18-2024 Episodic Alcohol-related disorders (20 sources) Alcohol withdrawal delirium; Translations: [Alcohol withdrawal delirium] Onset: 5 09-02-2024 Chronic Alcohol-related disorders (20 sources) Alcohol use, unspecified with alcohol-induced psychotic disorder, unspecified; Translations: [Unspecified alcohol-induced mental disorders] Onset: 5 09-02-2024 Episodic Anal and rectal conditions (2 sources) Rectal pain; Translations: [Other specified diseases of anus and rectum] 10-01-2024 Episodic Anxiety disorders (20 sources) Anxiety disorder, unspecified; Translations: [Anxiety] Onset: 5 09-23-2022 Chronic Asthma (20 sources) Exercise induced bronchospasm; Translations: [Exercise induced bronchospasm] Onset: 3 09-23-2022 Chronic Attention-deficit, conduct, and disruptive behavior disorders (20 sources) Attention deficit hyperactivity disorder, predominantly inattentive type; Translations: [Attention-deficit hyperactivity disorder, predominantly inattentive type] Onset: 3 09-23-2022 Chronic Cardiac dysrhythmias (20 sources) Palpitations; Translations: [Palpitations] Onset: 5 08-26-2024 Episodic Complications of surgical procedures or medical care (14 sources) Surgical wound finding; Translations: [Disruption of external operation (surgical) wound, not elsewhere classified, sequela] Onset: 5 09-25-2024 Episodic Coronary atherosclerosis and other heart disease (20 sources) Atherosclerosis of coronary artery without angina pectoris; Translations: [Atherosclerotic heart disease of [place] coronary artery without angina pectoris] Onset: 2 12-12-2022 Chronic Disorders of lipid metabolism (20 sources) Hypercholesterolemia; Translations: [Pure hypercholesterolemia, unspecified] Onset: 2 12-12-2022 Chronic Diverticulosis and diverticulitis (20 sources) Diverticulosis of colon; Translations: [Diverticulosis of large intestine without perforation or abscess without bleeding] Onset: 3 Resolved: 3 09-23-2022 Chronic E Codes: Fall (20 sources) Unspecified fall, initial encounter; Translations: [Fall in home] Onset: 2 09-10-2024 Episodic Endometriosis (1 source) Endometriosis (clinical); Translations: [Other endometriosis] 05-01-2024 Chronic Epilepsy; convulsions (20 sources) Idiopathic generalized epilepsy; Translations: [Generalized idiopathic epilepsy and epileptic syndromes, not intractable, without status epilepticus] Onset: 0 12-12-2022 Chronic Esophageal disorders (20 sources) Gastroesophageal reflux disease without esophagitis; Translations: [Gastro-esophageal reflux disease without esophagitis] Onset: 0 12-12-2022 Chronic Essential hypertension (20 sources) Hypertensive disorder; Translations: [Essential (primary) hypertension] Onset: 5 09-02-2024 Chronic Fluid and electrolyte disorders (2 sources) Hypokalemia; Translations: [Hypokalemia] 04-03-2024 Episodic Gastroduodenal ulcer (except hemorrhage) (2 sources) Peptic ulcer; Translations: [Peptic ulcer, site unspecified, unspecified as acute or chronic, without hemorrhage or perforation] 08-31-2022 Chronic Hemorrhoids (2 sources) Hemorrhoids; Translations: [Unspecified hemorrhoids] 10-01-2024 Episodic Hepatitis (20 sources) Nonalcoholic steatohepatitis; Translations: [...] bilateral carotid arteries] Onset: 1 12-12-2022 Chronic Open wounds of extremities (20 sources) Laceration of right knee; Translations: [Laceration without foreign body, right knee, subsequent encounter] Onset: 5 09-10-2024 Episodic Open wounds of extremities (18 sources) Laceration of left knee; Translations: [Laceration without foreign body, left knee, sequela] Onset: 5 09-10-2024 Episodic Osteoarthritis (20 sources) Osteoarthritis of knee; Translations: [...] [Pain in right foot] 05-15-2024 Episodic Other connective tissue disease (13 sources) Pelvic floor dysfunction; Translations: [Other specified disorders of muscle] Onset: 5 10-09-2024 Episodic Other connective tissue disease (5 sources) Spasm; Translations: [Other muscle spasm] Onset: 5 10-11-2024 Episodic Other connective tissue disease (1 source) Other muscle spasm; Translations: [Muscle spasm] Onset: 5 Episodic Other connective tissue disease (2 sources) Other specified disorders of muscle; Translations: [Pelvic floor dysfunction] Onset: 5 Episodic Other female genital disorders (4 sources) [...] diseases of the digestive system] Episodic Other gastrointestinal disorders (13 sources) Chronic constipation; Translations: [Other constipation] Onset: 5 10-09-2024 Episodic Other gastrointestinal disorders (2 sources) Other constipation; Translations: [Chronic constipation] Onset: 5 Episodic Other liver diseases (1 source) Steatosis [...] concentration deficit] Onset: 3 09-23-2022 Chronic Other nervous system disorders (4 sources) Paresthesia of upper limb; Translations: [Anesthesia of skin] 10-08-2024 Episodic Other nervous system disorders (4 sources) Facial paresthesia; Translations: [Anesthesia of skin] 10-08-2024 Episodic Other nervous system disorders (4 sources) Numbness and tingling sensation of skin; Translations: [Anesthesia of skin] 10-10-2024 Episodic Other non-traumatic joint disorders (1 source) Acute [...] not elsewhere classified] Onset: 3 09-23-2022 Chronic Superficial injury; contusion (2 sources) Contusion of [...] Translations: [Unspecified abdominal pain] Onset: 2 Episodic Allergic reactions (20 sources) Anaphylaxis; Translations: [Anaphylactic shock, unspecified, initial encounter] Onset: 3 04-18-2023 Episodic Biliary tract disease (20 sources) Cholelithiasis without obstruction; Translations: [Calculus of gallbladder without cholecystitis without obstruction] Onset: 3 04-18-2023 Episodic Calculus of urinary tract (20 sources) Kidney stone; Translations: [Calculus of kidney] Onset: 3 06-29-2022 Episodic Conditions associated with dizziness or vertigo (20 sources) Dizziness; Translations: [Dizziness and giddiness] Onset: 3 12-13-2022 Episodic Diabetes mellitus without complication (20 sources) Hyperglycemia; Translations: [Hyperglycemia, unspecified] Onset: 3 09-23-2022 Episodic Gastrointestinal hemorrhage (3 sources) Gastrointestinal hemorrhage; Translations: [Hemorrhage of anus and rectum] Onset: 5 04-26-2024 Episodic Genitourinary symptoms and ill-defined conditions (20 sources) Dysuria; Translations: [Increased frequency of urination] Onset: 3 Resolved: 3 05-01-2019 Episodic Headache; including migraine (20 sources) Tension-type headache; Translations: [Tension-type headache, unspecified, not intractable] Onset: 3 Resolved: 3 02-06-2023 Chronic Headache; including migraine (20 sources) Acute headache; Translations: [Acute nonintractable headache] Onset: 3 12-26-2023 Episodic Mood disorders (20 sources) Mood swings; Translations: [Emotional lability] Onset: 3 09-23-2022 Episodic Mood disorders (9 sources) Mood disorders Onset: 5 10-08-2024 Mycoses (20 sources) Dermatophytosis; Translations: [Dermatophytosis, unspecified] Onset: 4 10-03-2023 Episodic Other aftercare (20 sources) Postoperative visit; Translations: [Encounter for other specified surgical aftercare] Onset: 3 04-18-2023 Episodic Other circulatory disease (20 sources) Elevated blood pressure; Translations: [Elevated blood-pressure reading, without diagnosis of hypertension] Onset: 3 09-23-2022 Episodic Other disorders of stomach and duodenum (20 sources) Gastroparesis syndrome; Translations: [Gastroparesis] Onset: 3 Episodic Other disorders of stomach and duodenum (1 source) Gastroparesis; Translations: [Gastroparesis] Onset: 3 Episodic Other gastrointestinal disorders (20 sources) Dysphagia; Translations: [Dysphagia, unspecified] Onset: 3 09-23-2022 Episodic Other gastrointestinal disorders (20 sources) History of pancreatitis; Translations: [Personal history of other diseases of the digestive system] Onset: 3 04-18-2023 Episodic Other infections; including parasitic (20 sources) Personal history of other infectious and parasitic diseases; Translations: [History of COVID-19] Onset: 3 02-06-2023 Episodic Other injuries and conditions due to external causes (20 sources) Injury of right ankle; Translations: [Unspecified injury of right ankle, subsequent encounter] Onset: 4 02-06-2024 Episodic Other liver diseases (20 sources) Elevated liver enzymes level; Translations: [Abnormal levels of other serum enzymes] Onset: 3 09-23-2022 Episodic Other lower respiratory disease (20 sources) Cough; Translations: [Cough] Onset: 3 04-18-2023 Episodic Other lower respiratory disease (20 sources) Snoring; Translations: [Snoring] Onset: 4 04-16-2024 Episodic Other nervous system disorders (20 sources) Involuntary movement; Translations: [Unspecified abnormal involuntary movements] Onset: 3 09-23-2022 Episodic Other nervous system disorders (20 sources) Pain of skin; Translations: [Other disturbances of skin sensation] Onset: 3 09-23-2022 Episodic Other nervous system disorders (20 sources) Tremor; Translations: [Tremor, unspecified] Onset: 3 04-01-2024 Episodic Other non-traumatic joint disorders (20 sources) Shoulder pain; Translations: [Pain in left shoulder] Onset: 4 04-03-2024 Episodic Other nutritional; endocrine; and metabolic disorders (20 sources) Obese class I; Translations: [Obesity (BMI 30.0-34.9)] Onset: 3 Resolved: 3 02-06-2023 Chronic Other nutritional; endocrine; and metabolic disorders (20 sources) Overweight; Translations: [Overweight] Onset: 3 02-06-2023 Episodic Other nutritional; endocrine; and metabolic disorders (20 sources) Weight increased; Translations: [Abnormal weight gain] Onset: 4 10-03-2023 Episodic Other nutritional; endocrine; and metabolic disorders (4 sources) Weight gain; Translations: [Abnormal weight gain] Onset: 4 10-03-2023 Episodic Other screening for suspected conditions (not mental disorders or infectious disease) (20 sources) Ultrasound scan abnormal; Translations: [Abnormal findings on diagnostic imaging of other specified body structures] Onset: 3 Resolved: 3 Chronic Other screening for suspected conditions (not mental disorders or infectious disease) (20 sources) Encounter for screening for malignant neoplasm of cervix; Translations: [Other specified abnormal findings of blood chemistry] Onset: 2 Episodic Other skin disorders (20 sources) Vesicular eczema; Translations: [Dyshidrosis [pompholyx]] Onset: 4 10-03-2023 Episodic Other upper respiratory infections (20 sources) Maxillary sinusitis; Translations: [Chronic maxillary sinusitis] Onset: 3 Resolved: 3 02-06-2023 Chronic Ovarian cyst (6 sources) Other ovarian cyst, unspecified side; Translations: [Unspecified ovarian cyst, right side] Onset: 2 Episodic Pancreatic disorders (not diabetes) (20 sources) Biliary acute pancreatitis without necrosis or infection; Translations: [Acute pancreatitis without necrosis or infection, unspecified] Onset: 3 04-18-2023 Episodic Residual codes; unclassified (1 source) Acquired absence of both cervix and uterus; Translations: [ACQUIRED ABSENCE BOTH CERVIX AND UTERUS] Onset: 2 Episodic Residual codes; unclassified (20 sources) Insomnia; Translations: [Insomnia, unspecified] Onset: 3 09-23-2022 Episodic Residual codes; unclassified (20 sources) Localized edema; Translations: [Localized edema] Onset: 4 02-06-2024 Episodic Spondylosis; intervertebral disc disorders; other back problems (20 sources) Cervical radiculopathy; Translations: [Radiculopathy, cervical region] Onset: 3 Resolved: 3 12-26-2023 Episodic Sprains and strains (20 sources) Sprain of talofibular ligament of right ankle; Translations: [Sprain of other ligament of right ankle, initial encounter] Onset: 4 04-01-2024 Episodic Substance-related disorders (20 sources) Smoker; Translations: [Nicotine dependence] Onset: 3 Resolved: 3 10-12-2018 Chronic Comment on above: Added secondary to d ocumentation in Social History. Unclassified (1 source) LOW BACK PAIN, UNSPECIFIED; Translations: [LOW BACK PAIN, UNSPECIFIED] Onset: 2 Unclassified (2 sources) Injury of right ankle 02-06-2024 Unclassified (2 sources) Acute pain of left shoulder 04-03-2024 Urinary tract infections (20 sources) Recurrent urinary tract infection; Translations: [Urinary tract infectious disease] Onset: 3 Resolved: 3 06-29-2022 Episodic Viral infection (20 sources) COVID-19; Translations: [Other specified viral infection] Onset: 3 Resolved: 3 02-06-2023 Episodic Results Test Name Value Interpretation Reference Range Facility No Panel InformationOrdered By: Radiologist Radiology on 10-23-2024 [facility] [employer] Work Phone: No Panel Informationon 10-23 Radiology Study observation (narrative) [facility] XR ABDOMEN 1V SUPINEon 10-23 * * *Final Report* * * DATE [...] No radiopaque markers are noted in the [id number]-mv-[id number]. IMPRESSION: 0 Sitzmarks markers. The previously noted [...] any questions regarding this interpretation, please call [phone]. If you are unable to reach us at the number above, please feel free to contact [facility] at [phone]. [id number]^[email or web address] ^ACN [facility], RadiologistMD - 10/23/2024 * * *Final Report* * [...] No radiopaque markers are noted in the zzxuq-jz-lrjm. IMPRESSION: 0 Sitzmarks markers. The previously noted [...] any questions regarding this interpretation, please call [phone]. If you are unable to reach us at the number above, please feel free to contact [facility] at [phone]. [id number]^[email or web address]^SI ^ACN [facility] XR ABDOMEN 1V SUPINE * * *Final Report* * * DATE [...] No radiopaque markers are noted in the oxoub-iv-dhdt. IMPRESSION: 0 Sitzmarks markers. The previously noted [...] any questions regarding this interpretation, please call [phone]. If you are unable to reach us at the number above, please feel free to contact [facility] at [phone]. [id number] Normal [facility] XR Abdomen Supine and Uprigh ton 10-23-2024 IMPRESSION: 0 Sitzmarks markers. The previously noted [...] any questions regarding this interpretation, please call [phone]. If you are unable to reach us at the number above, please feel free to contact [facility] at [phone]. DIVISION OF RADIOLOGY * * *Final Report* * * [...] No radiopaque markers are noted in the xxkik-ro-tklg. DIVISION OF RADIOLOGY Provider, Iain Bray - 10/23/2024 * * *Final Report* * [...] No radiopaque markers are noted in the wdexo-ii-ujbg. IMPRESSION IMPRESSION: 0 Sitzmarks markers. The previously [...] any questions regarding this interpretation, please call [phone]. If you are unable to reach us at the number above, please feel free to contact [facility] at [phone]. [facility] MRI HEAD/BRAIN WO/W CONTRon 10-21-20[address] [place] [address] Magnetic Resonance Report Signed Patient: ORION HARPER MR#: [id number] : 1990 Acct:[id number] Age/Sex: 34 / F ADM Date: 10/21/24 Loc: MRI Attending Dr: SHANNON DARDEN Ordering Physician: SHANNON DARDEN Date of Service: 10/21/24 Procedure(s): MR head/brain wo/w con Accession Number(s): [id number] cc: GIOVANI HAGEN ; SHANNON DARDEN [place] [id number] Patient Name: ORION HARPER MRN: [id number] date: 1990 Sex: F Assigned Patient Location: MRI Current Patient Location: MRI Accession/Order Number: [id number] Exam Date: 10/21/2024 11:17 Report Date: 10/21/2024 [...] Knight M.D. 10/21/2024 11:39 AM Dictation Location: [place] [address] Electronically authenticated by: [id number] Date: 10/21/2024 11:39 Dictated By: Sandy Knight M.D. Signed By: 10/21/24 1142 DD/ 1139 TD/TT: Kitchen Porter: [facility] Radiology, Radiologist, MD - 10/21/2024 [place] [address] Magnetic Resonance Report Signed Patient: ORION HARPER MR#: [id number] : 1990 Acct:[id number] Age/Sex: 34 / F ADM Date: 10/21/24 Loc: MRI Attending Dr: SHANNON DARDEN Ordering Physician: SHANNON DARDEN Date of Service: 10/21/24 Procedure(s): MR head/brain wo/w con Accession Number(s): [id number] cc: GIOVANI HAGEN ; SHANNON DARDEN [place] [address] Patient Name: ORION HARPER MRN: [facility]:[id number] date: 1990 Sex: F Assigned Patient Location: MRI Current Patient Location: MRI Accession/Order Number: [id number] Exam Date: 10/21/2024 11:17 Report Date: 10/21/2024 [...] Knight M.D. 10/21/2024 11:39 AM Dictation Location: [place] [address] Electronically authenticated by: [id number] Y Date: 10/21/2024 11:39 Dictated By: Sandy Knight M.D. Signed By: 10/21/24 1142 DD/ 1139 TD/TT: Kitchen Porter: [facility] [employer] Radiology Study observation (narrative) [facility] MRI HEAD/BRAIN WO/W CONTROrd ered By: Radiologist Radiology on 10-21-2024 [facility] [employer] Work Phone: XR ABDOMEN 1V SUPINEon 10-21 XR ABDOMEN 1V SUPINE * * *Final Report* * * DATE [...] 10/23/2024 demonstrates complete passage of Sitzmarks markers. IMPRESSION: Sitzmarks markers as described. Kitchen Porter: MINAL Transcribe Date/Time: Oct 28 2024 9:07A Dictated by : ANNITA STILL MD This examination was interpreted and the report reviewed and electronically signed by: ANNITA STILL MD on Oct 28 2024 9:08AM EST [id number] N [facility] [id number] 10-11-2024 [id number] HNO ID: [id number] Author: LYDIA ROCK, PT, DPT Service: ? Author Type: Physical Therapist Type: [id number] Filed: 10/11/2024 15:55 Note Text: [facility] Physical Therapy Plan of Care Certification Patient Name: Orion Harper : 1990 [facility] #: [id number] Date: 10/11/2024 To: Mario Harper APRN* From Therapist: Lydia Rock, PT, DPT RE: Patient Certification/ Recertification Your review, approval and electronic signature are required in order to comply with Payor: MMO / Plan: MMO SUPERMED PPO / Product Type: PPO / regulations. The identified Physical Therapy PLAN OF CARE for the patient is as follows: M62.838 Muscle spasm (primary encounter diagnosis) M62.89 Pelvic floor dysfunction K59.09 Chronic constipation PLAN OF CARE: Assessment: Orion Harper presents with chief complaint of pelvic pain that interferes with bladder function, altered sexual function, bowel function . The patient presents with impairments in coordination, independence in exercise, overall function, range of motion, sensation, stress management, symptom management, and tissue tenderness. PROMIS? (Patient-Reported Outcomes Measurement Information System) scores were reviewed and identified as a rehabilitation concern. Prognosis for therapy is Fair due to: clinical presentation, chronic nature of impairments . Milly presents with complaints of pelvic pain that impacts bowel movements, intercourse, and urinary function. She has been dealing with chronic pelvic pain for a very long time and it is greatly impacting her daily life. Examination findings include significant tightness/tenderness of the pelvic floor muscles, difficulty with relaxation and lengthening, moderate restriction of scar, and poor diaphragmatic breathing. The patient will benefit from skilled therapy services to meet the goals established for this plan of care as noted below. Goals for Episode of Care: established 10/11/24 Patient demonstrates independence and compliance with home exercise program. Patient displays improved range of motion, coordination, and muscle dynamics of pelvic floor as evidenced by the ability to lengthen without paradoxical contraction at least 75% of the time to normalize bladder/bowel function; reduce pelvic pain. Patient displays improved range of motion, coordination, and muscle dynamics of pelvic floor as evidenced by full relaxation post-contraction at least 75% of the time to normalize bowel/bladder function; reduce pelvic pain. Patient reports increased ability to fully empty bladder/bowels at least 75% of the time to normalize bladder/bowel function. Coordinate pelvic floor with thoracic diaphragm during Functional mobility and change in position to decreasing incontinence and/or pain. Patient displays decreased muscle spasms in levator ani, superficial pelvic floor muscles, and periurethral muscles to allow for decreased pain levels, improved bladder/bowel function. Patient to report at least 50% improvement in pain with sexual intercourse. Patient Goals: decrease pain Time Frame for Goals and Treatment : 01/09/25 Planned Interventions, Frequency, and Duration: Current Frequency: 1x/month Duration: Three months Total Number of Visits Planned: 4 Planned Treatment Interventions: Therapeutic exercise (57733), Neuromuscular re-education (15053), Manual therapy (06014), Therapeutic activities (69843), Self-skilled nursing management (97068), Patient/Family/Caregi nataliia Education, Body Mechanics Training PLAN FOR NEXT VISIT: internal manual prn, progress pelvic openers/relaxation, vaginal moisturizers? Patient demonstrates good understanding of plan of care and treatment. The above goals and plan of care were discussed and agreed upon by patient/family. For further details regarding this patient refer to the Physical Therapy electronically documented visit dated 10/11/2024. Provider Attestation I have reviewed the treatment plan for Orion Eleuterio Harper, [facility]# [id number] for the period of 10/11/24 -- 01/09/25, established on 10/11/2024. Signature certifies the need for therapy services. Normal [facility] CNTHERAPYon 10-11-2024 CNTHERAPY OT/PT/Speech Visit (ERMA) ORION HARPER ([id number]) 1990 F Date Time Provider Department 10/11/24 2:45 PM LYDIA ROCK Date Time Provider Department Center 10/11/2024 2:45 PM [id number] ROCK [facility] Reason for Visit: PT Eval [747] Primary Visit Diagnosis:Muscle spasm [M62.838] Other Visit Diagnoses:Pelvic floor dysfunction [M62.89] Chronic constipation [K59.09] Allergies As of Date: 10/11/2024 Noted Allergy Reaction IODINATED CONTRAST MEDIA 04/12/2019 [...] NUTS 07/10/2024 10 - Anaphylaxis Date Reviewed: 10/09/2024 Reviewed by: Mario Harper APRN.SWITCHBOARD TROUBLESHOOTER - Fully Assessed Prescriptions as of 10/11/2024 - metoprolol succinate ER (TOPROL XL) 25 [...] Take 4.5 mg by mouth once daily. Normal [facility] CNOVon 10-09-2024 CNOV Office Visit ([facility] ) ORION HARPER ([id number]) 1990 F Date Time Provider Department 10/09/24 1:00 PM MARIO HARPER [facility] During your visit today, we recorded the following information about you: Pulse Blood pressure Weight 106/minute 112/76 86.6 kg Mario Harper APRN.CNP 10/09/2024 2:03 PM Signed COLORECTAL SURGERY October 09, 2024 Orion Harper 34 year old This consult was requested by Dr. Winn and my final recommendations will be communicated to the requesting health care provider by way of the shared medical record for internal providers or letter via the [employer] for external providers. Recording using [employer] software for draft documentation of the visit was discussed with the patient/authorized logistics service representative; all questions welcomed and answered. Patient/authorized logistics service representative agreed to proceed Chief Complaint: hemorrhoids, rectal pain History of Present Illness: HPI: The patient is a 34-year-old female with constipation-predomin ant irritable bowel syndrome (IBS-C), diverticulitis, and liver problems, presenting for evaluation of chronic hemorrhoidal symptoms, including pain and rectal bleeding. She reports that her hemorrhoidal symptoms began during her first approximately 12 years ago and have progressively worsened with each of her three pregnancies, all delivered via . She describes ongoing anal pain and daily rectal bleeding, which have recently intensified to the point that she cannot sit comfortably without shifting her weight to one side. She also experiences a sensation of something protruding externally during bowel movements, which she typically needs to push back in, and notes that she must wipe excessively after bowel movements to get clean. Her bowel movements occur infrequently, averaging once per week (approximately four times per month). She describes her stools as loose when they do occur, with episodes of rapid evacuation, particularly after consuming fast, greasy foods. Despite the loose consistency, she does not feel fully emptied after defecation and reports a need to strain at the end of bowel movements. She also experiences significant abdominal bloating during the prolonged intervals between bowel movements. She has tried Linzess in the past for constipation but discontinued it due to bothersome diarrhea and overall intolerance. She has also attempted fiber supplements but dislikes the gritty sensation they leave in her mouth and has not used Miralax consistently. She avoids foods with seeds to help manage her diverticulitis. She has not been using hemorrhoid creams or other topical treatments recently. Her history is notable for multiple hospitalizations for diverticulitis, though she has not required hospitalization since 2022 and now manages recurrences with antibiotics prescribed over the phone. She has undergone several colonoscopies, including one in April with Dr. Soriano, for evaluation of her liver and digestive issues. She has also been diagnosed with recurrent urinary tract infections, for which she maintains a standing prescription for antibiotics. Additionally, she reports chronic pelvic pain and dyspareunia, for which she is scheduled to see a pelvic specialist next month. She expresses that her symptoms have been longstanding and have significantly impacted her quality of life. April 2024- internal hemorrhoids, diverticulosis PAST MEDICAL HISTORY Diagnosis Date Asthma (HCC) Bipolar disorder (HCC) Diverticulitis 2017 Hypertension IBS (irritable bowel syndrome) Syncope PAST SURGICAL HISTORY Procedure Laterality Date ANKLE SURGERY HX SECTION HX x3 COLONOSCOPY 04/2018 IBS-c COLONOSCOPY SCREENING 2019 EGD DIAGNOSTIC 2022 HYSTERECTOMY HX HYSTEROSCOPY, DIAGNOSTIC (SEPARATE L'SCOPE CHOLECYSTECTOMY 2022 Current Outpatient Medications Medication Sig Dispense Refill metoprolol succinate ER (TOPROL XL) 25 mg 24 hr tablet Take 1 tablet by mouth once daily. 30 tablet 2 montelukast (SINGULAIR) 10 mg tablet Take 10 [...] No current facility-administered medications for this visit. ALLERGIES Allergen Reactions Iodinated Contrast * Anaphylaxis, Hives, Itching Cat Dander Anaphylaxis Iv Contrast [Iodine] Swelling, Itching Omnipaque 300: Patient experienced itching on her neck and left side of her face. Also, pt complaine (more content not included)... Normal [facility] [place] 10-01-2024 HUYEN Telephone (GASTNO) MEREDITHORION ([id number]) 1990 F Date Time Provider Department 10/01/24 CAROL WINN During your visit today, we recorded the following information about you: Acacia Gonzalez 10/01/2024 3:07 PM Signed Pt called in stating she was told to make an appt with colorectal surgery back in July. She finally got a chance to call and they told her she needs a referral put in before she can make an appt. Please add referral and advise pt. Connie Lucas RN 10/01/2024 3:36 PM Addendum Iliana, Pt would like to make [facility] appt, Stated that she needs a consult, Pended a consult to you, If agree please review and sign Connie Keenan RN Farris, Tracey, RN to Milly Harper TF 07/18/24 4:08 PM Iliana Atkins reviewed your message and advises: If it is hemorrhoids or fissures we should refer to [facility] as they would take care of that. Any other GI issues can keep appointment with me. Thank you, Benito Soriano RN Last read by Milly Harper at 11:26AM on 10/01/2024. Iliana Mercado PA-C to Benito Soriano, JW LY 07/18/24 3:32 PM If it is hemorrhoids or fissures we should refer to [facility] as they would take care of that. Any other GI issues can keep appointment with me. Thank you! Connie Lucas RN 10/01/2024 4:13 PM Signed Iliana Mercado PA-C You13 minutes ago (4:00 PM) JESUS Signed thank you GonzalezKamryn pierrean 10/02/2024 3:09 PM Signed Called pt and let her know referral was in. Pt was calling [facility] to schedule Allergies As of Date: 10/01/2024 Noted Allergy Reaction IODINATED CONTRAST MEDIA 04/12/2019 [...] NUTS 07/10/2024 10 - Anaphylaxis Date Reviewed: 08/13/2024 Reviewed by: Kartik Espinosa, RN - Fully Assessed Primary Visit Diagnosis:Rectal pain [K62.89] Other Visit Diagnosis:Hemorrhoids , unspecified hemorrhoid type [K64.9] Order(s):CONSULT TO COLO-RECTAL SURGERY [] Order #: [id number]: 1 FUTURE Prescriptions as of 10/02/2024 - metoprolol succinate ER (TOPROL XL) 25 [...] once daily. Problem List As Of Date 10/01/2024 Noted Resolved Gastroparesis [K31.84] 11/02/2022 Encounter Status:Closed by ILIANA MERCADO on 10/01/24 Normal [facility] Cholesterol [Mass/volume] in Serum or PlasmaOrdered By: Dank Green on 08-17-2024 Cholesterol [Mass/Vol] Cholesterol [Mass/volume] in Serum or Plasma 140-200 [facility] Comment on above: Chol less than 200 m g/dl low riskChol 201-239 mg/dl borderline riskChol 240 mg/dl and greater high risk Cholesterol in HDL [Mass/vol ume] in Serum or PlasmaOrdered By: Dank Green on 08-17-2024 Cholesterol in HDL [Mass/Vol] Serum or plasma high density lipoprotein (HDL) cholesterol measurement [facility] Comment on above: HDL CHOL ATP-III CLA SSIFICATION Cardiovascular RiskHDL > or equal to 60 mg/dL LOWHDL < 40 mg/dL HIGH Cholesterol in LDL Calc [Mas s/Vol]Ordered By: Dank Green on 08-17-2024 Cholesterol in LDL [Mass/Vol] Cholesterol in LDL [Mass/volume] in Serum or Plasma by calculation High 0-100 [facility] Comment on above: LDL ATP III CLASSIFI CATIONLDL less than 100 mg/dL OptimalLDL 100-129 mg/dL Near or above optimalLDL 130-159 mg/dL Borderline highLDL 160-189 mg/dL HighLDL greater than 189 mg/dL Very high Cholesterol in VLDL Calc [Ma ss/Vol]Ordered By: Dank Green on 08-17-2024 Cholesterol in VLDL [Mass/Vol] Cholesterol in VLDL [Mass/volume] in Serum or Plasma by calculation [facility] Lipid Panelon 08-17-2024 Cholesterol [Mass/Vol] 183 mg/dL Normal 140-200 Th e Count Includes [facility] Comment on above: Result Comment: Chol less than 200 mg/dl low risk Chol 201-239 mg/dl borderline risk Chol 240 mg/dl and greater high risk Performed By: #### T SH3 wRFLX, LIPID, [id number] #### [facility] [address] [place] [address] [place] Cholesterol in HDL [Mass/Vol] 59 mg/dL Normal The Count Includes [facility] Comment on above: Result Comment: HDL CHOL ATP-III CLASSIFICATION Cardiovascular Risk HDL > or equal to 60 mg/dL LOW HDL < 40 mg/dL HIGH Performed By: #### T SH3 wRFLX, LIPID, [id number] #### [facility] [address] [place] [address] [place] Cholesterol.total/Chol esterol in HDL [Mass ratio] 3.1 {ratio} Normal <5.0 The Count Includes [facility] Comment on above: Performed By: #### T SH3 wRFLX, LIPID, [id number] #### [facility] [address] LDL Cholesterol,Calculated 101 mg/dL High 0-100 [facility] Comment on above: Result Comment: LDL ATP III CLASSIFICATION LDL less than 100 mg/dL Optimal LDL 100-129 mg/dL Near or above optimal LDL 130-159 mg/dL Borderline high LDL 160-189 mg/dL High LDL greater than 189 mg/dL Very high Performed By: #### T SH3 wRFLX, LIPID, [id number] #### [facility] [address] Triglyceride w/Reflex 113 mg/dL Normal 0-149 The Count Includes [facility] Comment on above: Result Comment: TRIG ATP III CLASSIFICATION TRIG less than 150 mg/dL Normal TRIG 150-199 mg/dL Borderline high TRIG 200-500 mg/dL High TRIG greater than 500 mg/dL Very high Standard traceable to the Center for Disease Conrtrol and Prevention (CDC) test method. Performed By: #### T SH3 wRFLX, LIPID, [id number] #### [facility] [address] VLDL CHOLESTEROL 22 mg/dL Normal [facility] Comment on above: Performed By: #### T SH3 wRFLX, LIPID, [id number] #### [facility] [address] Serum or plasma total choles terol/high density lipoprotein (HDL) cholesterol mass ratOrdered By: Dank Green on 08-17-2024 Cholesterol.total/Chol esterol in HDL [Mass ratio] Serum or plasma total cholesterol/high density lipoprotein (HDL) cholesterol mass rat <5.0 [facility] Thyroid Stim Hormone w/Rflxo n 08-17-2024 Thyroid Stim Hormone w/Rflx 3.84 u[iU]/mL Normal 0.45-5.33 The Count Includes [facility] Comment on above: Performed By: #### T SH3 wRFLX, LIPID, [id number] #### [facility] [address] [place] [id number] [facility] Thyrotropin [Units/volume] i n Serum or PlasmaOrdered By: Dank Green on 08-17-2024 TSH Qn Thyrotropin [Units/volume] in Serum or Plasma 0.45-5.33 [facility] Triglyceride [Mass/volume] i n Serum or PlasmaOrdered By: Dank Green on 08-17-2024 Triglyceride [Mass/Vol] Triglyceride [Mass/volume] in Serum or Plasma 0-149 [facility] Comment on above: TRIG ATP III CLASSIF ICATIONTRIG less than 150 mg/dL NormalTRIG 150-199 mg/dL Borderline highTRIG 200-500 mg/dL High TRIG greater than 500 mg/dL Very highStandard traceable to the Center for Disease Conrtrol and Prevention (CDC) test method. Vitamin D 25 Hydroxy Totalon 08-17-2024 Vitamin D 25 Hydroxy Total 13.6 ng/mL Low 30-100 The Count Includes [facility] Comment on above: Result Comment: MAYA MIN D STATUS 25(OH)VITAMIN D RANGE (ng/mL) Deficient <20 Insufficient 20 to <30 Sufficient 30 to 100 Reference: Umesh MURO,Cheyanne WOLF, Elio MELVIN, et al. Evaluation,treatment, and prevention of vitamin D deficiency; an Endocrine Society clinical practice guideline. JCEM. 2010; 96(7):1911-30. PERFORMED BY: [place] [address] PATHOLOGIST NET PROGRAMMER PADILLA MOLINA M.D. Performed By: #### T SH3 wRFLX, LIPID, [id number] #### [facility] [address] [place] [id number] [facility] Vitamin D+Metabolites [Mass/ volume] in Serum or PlasmaOrdered By: Dank Green on 08-17-2024 Vitamin D+Metabolites [Mass/Vol] Vitamin D+Metabolites [Mass/volume] in Serum or Plasma Low 30-100 [facility] Comment on above: VITAMIN D STATUS 25( [place])VITAMIN D RANGE (ng/mL) Deficient <20 Insufficient 20 to <30Sufficient 30 to 100Reference: Umesh MURO,Cheyanne NC, Elio MELVIN, et al. Evaluation,treatment, and prevention of vitamin D deficiency; an Endocrine Society clinical practice guideline. JCEM. 2010; 96(7):1911-30. CNOVon 08-13-2024 CNOV Office Visit (CARDMN ) ORION HARPER ([id number]) 1990 F Date Time Provider Department 08/13/24 2:30 PM SOLO MORA CARDMN During your visit today, we recorded the following information about you: Pulse Blood pressure Weight Height 92/minute 140/96 81.6 kg 1.6 m Solo Mora MD 08/26/2024 3:56 PM [facility] [place] Meghna Hooker Department of Cardiovascular Medicine SECTION OF CARDIAC PACING and ELECTROPHYSIOLOGY OUTPATIENT VISIT DATE August 13, 2024 OUTPATIENT VISIT TYPE ESTABLISHED PRIMARY CARE PHYSICIAN: Giovani Hagen MD [address] [place] [address] CHIEF COMPLAINT: Syncope HISTORY OF PRESENT ILLNESS:(NURSING [...] for ischemia (more content not included)... Normal [facility] STRESS ECHO TREADMILLon 07-24 STRESS ECHO TREADMILL Stress Laborer Bituminous Paving Report: Stress Echo [facility] J1-5 Date of service: 08/13/2024 12:34:08 PM TECHNOLOGIST Supervising physician: Geremias Higuera MD PATIENT: Name: ORION HARPER Age: 33 years Gender: F The supervising physician was in the department and immediately available. Final -------- Echocardiography Report: Stress Echo [facility] J1-5 Date of service: 08/13/2024 12:34:08 PM TECHNOLOGIST Ordering physician: SOLO MORA Indication: Syncope Technologist: [...] the prior echocardiographic exam performed on 04/09/2024 ([place]). The major resting echocardiographic findings are comparable. Final -------- Stress ECG Report: Stress Echo [facility] J1-5 Date of service: 08/13/2024 12:34:08 PM TECHNOLOGIST Ordering physician: SOLO MORA distribution specialist: Bunny Epperson Fellow: Kiley Gallagher MD [...] estimated e (more content not included)... Normal [facility] CNPNon 07-26-2024 CNPN Telephone (GASTNO) ORION HARPER ([id number]) 1990 F Date Time Provider Department 07/26/24 CAROL WINN During your visit today, we recorded the following information about you: Acacia Gonzalez 07/26/2024 11:38 AM Signed Pt called in asking for lab test results. Please call pt back and advise pt. Benito Soriano, RN 07/26/2024 11:45 AM Signed Latest Reference Range [...] Iliana, Looks like labs were completed at [facility]. Patient is asking about results. Thank you, [...] Encounter Status:Closed by ACACIA GONZALEZ on 08/15/24 Normal [facility] CNOVon 07-10-2024 CNOV Office Visit (OBGYCC ) ORION HARPER ([id number]) 1990 F Date Time Provider Department 07/10/24 9:30 AM JAVY BOUDREAUX OBGY During your visit today, we recorded the following information about you: Pulse Blood pressure Weight Height 108/minute 131/90 86.2 kg 1.588 m Last Period 05/25/15 Javy Boudreaux MD 07/10/2024 10:15 AM Signed SUBJECTIVE: Orion Harper is a 33 year old female Patient presents with: Vaginal Problem: Pt presents today for consult - painful intercourse Referred here by her TRAFFIC CONTROL SUPERVISOR at [place]. Has been having pain with intercourse for [...] Diverticulitis 2018 Hypertension IBS (irritable bowel syndrome) Social History [...] - PELVIC US WHI - CONSULT TO TRAFFIC CONTROL SUPERVISOR PELVIC PAIN 2. Pelvic pain in female - ICD9: 625.9, ICD10: R10.2 - counseled. - PELVIC US WHI - CONSULT TO TRAFFIC CONTROL SUPERVISOR PELVIC PAIN Javy Boudreaux MD Medical Decision Making: Problems: Moderate: New problem with uncertain prognosis Data: Unique test(s) ordered: 2 Risk: Low: Low risk from testing/treatment Medical Decision Making Level: 3 - Low Referring Provider: DARWIN STARR [[id number]] Allergies As of Date: 07/10/2024 Noted Allergy [...] Diagnosis:Pelvic edward (more content not included)... Normal [facility] Comprehensive metabolic 2000 panelon 07-10-2024 Albumin [Mass/Vol] 4.5 g/dL Normal 3.9-4.9 [facility] Comment on above: Order Comment: Speci men Type: BLOOD SPECIMENOrdering Facility: [facility] Address: [address] [place], [place] [address] Performed By: #### 2 4323-8, 2275- ####[facility] LABCLIA [id number] [place] [id number] [place] ALP [Catalytic activity/Vol] 130 U/L High 34-123 [facility] Comment on above: Order Comment: Speci men Type: BLOOD SPECIMENOrdering Facility: [facility] Address: [address] [place], [place] [address] Performed By: #### 2 4323-8, 2275-07 ####[facility] LABCLIA [id number] [place] [address] [place] ALT [Catalytic activity/Vol] 141 U/L High 7-38 [facility] Comment on above: Order Comment: Speci men Type: BLOOD SPECIMENOrdering Facility: [facility] Address: [address] [place] [address] Performed By: #### 2 4323-8, 2275-07 ####[facility] LABCLIA [id number] [place] [address] [place] Anion gap [Moles/Vol] 11 mmol/L Normal 8-15 [facility] Comment on above: Order Comment: Speci men Type: BLOOD SPECIMENOrdering Facility: [facility] Address: [address] [place], [place] [address] Performed By: #### 2 4323-8, 2275-07 ####[facility] LABCLIA [id number] [place] [address] [place] AST [Catalytic activity/Vol] 90 U/L High 13-35 [facility] Comment on above: Order Comment: Speci men Type: BLOOD SPECIMENOrdering Facility: [facility] Address: [address] [place], [place] [address] Performed By: #### 2 4323-8, 2275- ####[facility] LABCLIA [id number] [address] [address] [place] Bilirubin [Mass/Vol] 0.4 mg/dL Normal 0.2-1.3 [facility] Comment on above: Order Comment: Speci men Type: BLOOD SPECIMENOrdering Facility: [facility] Address: [address] [place], [place] [address] Performed By: #### 2 4323-8, 2275-07 ####[facility] LABCLIA [id number] [place] [address] [place] Calcium [Mass/Vol] 9.4 mg/dL Normal 8.5-10.2 [facility] Comment on above: Order Comment: Speci men Type: BLOOD SPECIMENOrdering Facility: [facility] Address: [address] [place] [address] Performed By: #### 2 4323-8, 2275-07 ####[facility] LABCLIA [id number] [place] [address] [place] Chloride [Moles/Vol] 102 mmol/L Normal 98-107 [facility] Comment on above: Order Comment: Speci men Type: BLOOD SPECIMENOrdering Facility: [facility] Address: [address] [place], [place] [address] Performed By: #### 2 4323-8, 2275-07 ####[facility] LABCLIA [id number] [place] [address] [place] CO2 [Moles/Vol] 23 mmol/L Normal 22-30 [facility] Comment on above: Order Comment: Speci men Type: BLOOD SPECIMENOrdering Facility: [facility] Address: [address] [place], [place] [address] Performed By: #### 2 4323-8, 2275-07 ####[facility] LABCLIA [id number] [place] [address] [place] Creatinine [Mass/Vol] 0.71 mg/dL Normal 0.58-0.96 [facility] Comment on above: Order Comment: Rl basilio Type: BLOOD SPECIMENOrdering Facility: [facility] Address: [address] [place] [address] Performed By: #### 2 4323-8, 2276-4 ####[facility] LABCLIA [id number] [place] [address] [place] Creatinine and Glomerular filtration rate.predicted panel (S/P/Bld) 114 mL/min/1.73m??? Normal >=60 [facility] Comment on above: Order Comment: Rl basilio Type: BLOOD SPECIMENOrdering Facility: [facility] Address: [address] [place] [address] Result Comment: Chely mated Glomerular Filtration Rate [...] actual GFR. Performed By: #### 2 4323-8, 2275-4 ####[facility] LABCLIA [id number] [place] [address] [place] Glucose [Mass/Vol] 121 mg/dL High 74-99 [facility] Comment on above: Order Comment: Rl basilio Type: BLOOD SPECIMENOrdering Facility: [facility] Address: [address] [place] [address] Result Comment: The [place] Diabetes Association (ADA) provides guidance for cutoff [...] Standards of Medical Care in Diabetes 2016, [place] [employer] Association. Diabetes Care. 2016.39(Suppl 1). Performed By: #### 2 4323-8, 2275- ####[facility] LABCLIA [id number] [address] [address] [place] Potassium [Moles/Vol] 3.6 mmol/L Low 3.7-5.1 [facility] Comment on above: Order Comment: Speci men Type: BLOOD SPECIMENOrdering Facility: [facility] Address: [address] [place] [id number] Performed By: #### 2 4323-8, 2275-07 ####[facility] LABCLIA [id number] [address] [address] [place] Protein [Mass/Vol] 7.3 g/dL Normal 6.3-8.0 [facility] Comment on above: Order Comment: Speci men Type: BLOOD SPECIMENOrdering Facility: [facility] Address: [address] [place] [id number] Performed By: #### 2 4323-8, 2275-07 ####[facility] LABIA [id number] [address] [address] [place] Sodium [Moles/Vol] 136 mmol/L Normal 136-144 [facility] Comment on above: Order Comment: Speci men Type: BLOOD SPECIMENOrdering Facility: [facility] Address: [address] [place] [address] Performed By: #### 2 4323-8, 2275-07 ####[facility] LABCLIA [id number] [address] [address] [place] Urea nitrogen [Mass/Vol] 9 mg/dL Normal 7-21 [facility] Comment on above: Order Comment: Speci men Type: BLOOD SPECIMENOrdering Facility: [facility] Address: [address] [place] [address] Performed By: #### 2 4323-8, 2276-4 ####[facility] LABCLIA [id number] [place] [address] [place] Ferritin SerPl-mCncon 2024 Ferritin [Mass/Vol] 392.0 ng/mL High 14.7-205.1 [facility] Comment on above: Order Comment: Speci men Type: BLOOD SPECIMENOrdering Facility: [facility] Address: [address] [place] [address] Performed By: #### 2 4323-8, 2276-4 ####[facility] LABCLIA [id number] [place] [address] [place] US Pelvison 07-10-2024 Indication [...] Performed By: Sayra Kate RDMS Read By: Lulú Washburn M.D. MATERNAL MEDICINE [facility] Radiology Study observation (narrative) [facility] XR ABD 2V SUPINE W UPR/DECUB [...] IMPRESSION: Mild to moderate colonic stool content Kitchen Porter: [facility] Transcribe Date/Time: Jul 13 2024 9:59A Dictated by : BUNNY LIANG MD This examination was interpreted and the report reviewed and electronically signed by: BUNNY LIANG MD on Jul 13 2024 10:05AM EST [id number] Normal [facility] XR Ankle - right 3 Viewson 0 07-03-2024 Imaging Result: Three views were taken today AP/MORT/LAT Ankle: No fractures or dislocations seen joint in good position and alignment [facility] Radiology Study observation (narrative) [facility] RECURRENT VAGINITIS (HTRX)on 06-26-2024 ATOPOBIUM VAGINAE 0 [facility] ATOPOBIUM VAGINAE Not detected [facility] BVAB 2,3 (BACTERIAL VAGINOSIS ASSOCIATED BACTERIA 2, 3); MOBILUNCUS SPP 0 [facility] BVAB 2,3 (BACTERIAL VAGINOSIS ASSOCIATED BACTERIA 2, 3); MOBILUNCUS SPP Not detected [facility] SHARIF ALBICANS, PARAPSILOSIS, TROPICALIS 0 [facility] SHARIF ALBICANS, PARAPSILOSIS, TROPICALIS Not detected [facility] SHARIF GLABRATA 0 [facility] SHARIF GLABRATA Not detected [facility] SHARIF KRUSEI 0 [facility] SHARIF KRUSEI Not detected [facility] CHLAMYDIA TRACHOMATIS 0 [facility] CHLAMYDIA TRACHOMATIS Not detected [facility] GARDNERELLA VAGINALIS 0 [facility] GARDNERELLA VAGINALIS Not detected [facility] MEGASPHAERA (TYPES 1, 2) 0 [facility] MEGASPHAERA (TYPES 1, 2) Not detected [facility] MYCOPLASMA GENITALIUM 0 [facility] MYCOPLASMA GENITALIUM Not detected [facility] NEISSERIA GONORRHOEAE 0 [facility] NEISSERIA GONORRHOEAE Not detected [facility] TRICHOMONAS VAGINALIS 0 [facility] TRICHOMONAS VAGINALIS Not detected N [facility] MLR HEMOGLOBIN A1Con 025 Glucose [Mass/Vol] 126 mg/dL [facility] HbA1c (Bld) [Mass fraction] 6 % 4.5 - 6.2 % [facility] Comment on above: ADA RECOMMENDED LIMI T 4.0 - 6.0 ADA THERAPEUTIC TARGET < 7.0 ACTION SUGGESTED > 7.0 [facility] ALL CBC WITH AUTO DIFFon BASOPHILS ABSOLUTE AUTO 0 [facility] Basophils/100 WBC (Bld) 0.4 % 0.2 - 2.0 % [facility] Eosinophils/100 WBC (Bld) 4.4 % 0.9 - 7.0 % [facility] Erythrocyte distribution width (RBC) [Ratio] 13.2 % 11.0 - 15.0 % [facility] Hematocrit (Bld) [Volume fraction] 41.6 % 36.0 - 48.0 % [facility] Hemoglobin (Bld) [Mass/Vol] 14 g/dL 12.0 - 16.0 g/dL [facility] IMMATURE GRANULOCYTES ABS AUTO 0.13 High [facility] Immature granulocytes/100 WBC (Bld) 1.6 % High 0.0 - 0.5 % [facility] Interpretation and review of laboratory results Abnormal [facility] LYMPHOCYTES ABSOLUTE AUTO 2.7 [facility] Lymphocytes/100 WBC (Bld) 33.8 % 20.5 - 60.0 % [facility] MCH (RBC) [Entitic mass] 32.6 pg 26.7 - 34.0 pg [facility] MCHC (RBC) [Mass/Vol] 33.7 g/dL 29.9 - 35.2 g/dL [facility] MCV (RBC) [Entitic vol] 96.7 fL 81.0 - 99.0 fL [facility] MONOCYTES ABSOLUTE AUTO 0.5 [facility] Monocytes/100 WBC (Bld) 5.9 % 1.7 - 12.0 % [facility] NEUTROPHILS ABSOLUTE AUTO 4.4 [facility] Neutrophils/100 WBC (Bld) 53.9 % 43.0 - 75.0 % [facility] Platelet mean volume (Bld) [Entitic vol] 10.4 fL 9.5 - 13.5 fL [facility] TBH EO # 0.4 [facility] PLT 257 [facility] RBC 4.3 [facility] WBC 8.1 [facility] C. difficile toxin genes SHEILA +probe Ql (Stl)on 05-23-2024 Interpretation and review of laboratory results Abnormal [facility] CLOSTRIDIUM DIFFICILE TOXIN BY PCRon 05-23-2024 C. difficile toxin genes SHEILA+probe Ql (Stl) Positive Abnormal Negative for C. difficile toxin by PCR [facility] Comment on above: A positive PCR [...] [place] 05-23-2024 ISABELN Telephone (TANI) ORION HARPER ([id number]) 1990 F Date Time Provider Department 05/23/24 [...] Encounter Status:Closed by BENITO SORIANO on 05/24/24 [facility] ANES POSTPROC EVALon 025 ANES POSTPROC EVAL HNO ID: [id number] Author: OBED BHATT APRN.BALANCE ASSEMBLER Service: Anesthesiology Author Type: Nurse Cap Sewer Type: Anesthesia Postprocedure Evaluation Filed: 05/22/2024 14:22 Note Text: POST ANESTHESIA EVALUATION NOTE : 1990 Procedure Summary Date: 05/22/24 Room / Location: Ambulatory Surgery Anesthesia Start: 1345 Anesthesia Stop: 142 Procedure: COLONOSCOPY DIAGNOSTIC Diagnosis: BRBPR (bright red [...] May 22, 2024 TIME: 2:22 PM CSN: [id number] Normal [facility] ANES PRE-OPon 05-22-2024 ANES PRE-OP HNO ID: [id number] Author: OBED BHATT APRN.CRNA Service: Anesthesiology Author Type: Nurse Cap Sewer Type: Anesthesia Preprocedure Evaluation Filed: 05/22/2024 14:23 [...] and consent discussed: yes. Patient / Responsible Alliance Party agrees to proceed: yes Patient / [...] May 22, 2024 TIME: 2:22 PM CSN: [id number] Normal [facility] PRE-OP HNO ID: [id number] Author: OBED BHATT APRN.CRNA Service: Anesthesiology Author Type: Nurse Cap Sewer Type: Anesthesia Preprocedure Evaluation Filed: 05/22/2024 14:21 [...] and consent discussed: yes. Patient / Responsible Alliance Party agrees to proceed: yes Patient / [...] 48 hours of Surgery/Procedure. SIGNATURE: Obed Bhatt APRN.BALANCE ASSEMBLER PATIENT NAME: Orion Harper DATE: May 22, 2024 TIME: 2:18 PM CSN: [id number] Normal [facility] C diff Tox gens Stl Ql SHEILA+p robeon 05-22-2024 C. difficile toxin genes SHEILA+probe Ql (Stl) Positive Abnormal Negative for C. difficile toxin by PCR [facility] Comment on above: Order Comment: Speci men Type: STOOL SPECIMENOrdering Facility: [facility] Address: [address] [place] [address] Result Comment: A po sitive PCR result [...] #### 5 4067-4, CDEIA ####[facility] LABCLIA [id number] [address] CLOSTRIDIUM DIFFICILE TOXIN BY EIAon 05-22-2024 C. difficile toxin A+B IA Ql (Stl) Not detected Normal Negative for C. difficile toxin [facility] Comment on above: Order Comment: Speci men Type: STOOL SPECIMENOrdering Facility: [facility] Address: [address] [place] [address] Result Comment: Toxi n EIA is less sensitive than cell cytotoxin and PCR assays. Clinical correlation of PCR positive/toxin EIA negative results is required to distinguish C. difficle colonization from disease. Performed By: #### 5 4067-4, CDEIA ####[facility] LABCLIA [id number] [place] [address] [place] COLONOSCOPYon 05-22-2024 [facility] Gastroenterology Gastrointestinal Endoscopy Patient Name: Orion Harper Procedure Date: 05/22/2024 1:40 PM Date of : 1990 Admit Type: Outpatient Age: 33 Room: [facility] 2 Gender: Female Note Status: Finalized Attending MD: Carol Winn MD, [id number] Procedure: Colonoscopy Indications: Rectal bleeding, Change in [...] verified by the physician, the nurse, the hand stamper and the senior health physics technician in the procedure room. Mental Status [...] bowel preparation was evaluated using the BBPS (Tobias Bowel Preparation Scale) with scores of: Right [...] not included)... [facility], Radiologist, - 05/22/2024 [facility] Gastroenterology Gastrointestinal Endoscopy Patient Name: Orion Harper Procedure Date: 05/22/2024 1:40 PM Date of : 1990 Admit Type: Outpatient Age: 33 Room: [facility] 2 Gender: Female Note Status: Finalized Attending MD: Carol Winn MD, [id number] Procedure: Colonoscopy Indications: Rectal bleeding, Change in [...] verified by the physician, the nurse, the hand stamper and the senior health physics technician in the procedure room. Mental Status [...] bowel preparation was evaluated using the BBPS (Tobias Bowel Preparation Scale) with scores of: Right [...] once a da (more content not included)... 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 Mental Status [...] bowel preparation was evaluated using the BBPS (Tobias Bowel Preparation Scale) with scores of: Right [...] previously scheduled. (more content not included)... Normal [facility] Flexible sigmoidoscopy study on 05-22-2024 [facility] Gastroenterology Gastrointestinal Endoscopy Patient Name: Orion Harper Procedure Date: 05/22/2024 1:40 PM Date of : 1990 Admit Type: Outpatient Age: 33 Room: ENDO [place] PROC RM 2 Gender: Female Note Status: Finalized Attending MD: Carol Winn MD, [id number] Procedure: Colonoscopy Indications: Rectal bleeding, Change in [...] verified by the physician, the nurse, the hand stamper and the senior health physics technician in the procedure room. Mental Status [...] bowel preparation was evaluated using the BBPS (Tobias Bowel Preparation Scale) with scores of: Right [...] were ph (more content not included)... PROVATION [facility] Gastrointestinal pathogens i dentified SHEILA+probe Nom (Stl)on 05-22-2024 Campylobacter sp DNA SHEILA+probe Nom (Unsp spec) Not detected Normal Not Detected [facility] Comment on above: Order Comment: Speci men Type: STOOL SPECIMENOrdering Facility: [facility] Address: [address] [place] [address] Performed By: #### 7 9390-1 ####[facility] [id number] [place] [address] [place] Salmonella sp DNA SHEILA+probe Ql (Unsp spec) Not detected Normal Not Detected [facility] Comment on above: Order Comment: Speci chetna Type: STOOL SPECIMENOrdering Facility: [facility] Address: [address] [place] [address] Performed By: #### 7 9390-1 ####[facility] [id number] [place] [address] [place] Shiga toxin stx gene SHEILA+probe Nom (Unsp spec) Not detected Normal Not Detected [facility] Comment on above: Order Comment: Speci men Type: STOOL SPECIMENOrdering Facility: [facility] Address: [address] [place] [address] Performed By: #### 7 9390-1 ####[facility] [id number] [place] [address] [place] Shigella sp DNA SHEILA+probe Ql (Unsp spec) Not detected Normal Not Detected [facility] Comment on above: Order Comment: Speci men Type: STOOL SPECIMENOrdering Facility: [facility] Address: [address] [place] [address] Performed By: #### 7 9390-1 ####[facility] [id number] [address] [place] [address] [place] HISTORY PHYSICALon HISTORY PHYSICAL HNO ID: [id number] Author: CAROL WINN MD Service: Gastroenterology Author [...] May 22, 2024 TIME: 1:39 PM Normal [facility] NURSING PROGon 05-22-2024 NURSING PROG HNO ID: [id number] Author: LINDSEY BUCKLEY RN Service: ? Author [...] Buckley RN In Department: AMBULATORY SURGERY Normal [facility] No Panel Informationon 05-22 Radiology Study observation (narrative) [facility] SURGICAL PATHOLOGYon 025 CASE REPORT Normal [facility] Comment on above: Order Comment: Speci men Type: TISSUE SPECIMENOrdering Facility: [facility] Address: [address] [place] [address] Result Comment: Surg [facility] Pathology Report Case: [id number] Authorizing Provider: Carol Winn MD Collected: 05/22/2024 02:05 PM Ordering Location: Ambulatory Surgery Received: 05/22/2024 08:39 PM Pathologist: Fe Barnes MD Specimens: A) - Colon, Right, Biopsy, r/o microscopic colitis, r/o inflammation B) - Colon, Left, Biopsy, r/o microscopic colitis, r/o inflammation Performed By: #### S ####[facility] [id number] [address] FINAL DIAGNOSIS Normal [facility] Comment on above: Order Comment: Speci men Type: TISSUE SPECIMENOrdering Facility: [facility] Address: [address] [place] [address] Result Comment: A. C olon, right, biopsy: - Colonic mucosa with no significant pathologic change. B. Colon, left, biopsy: - Colonic mucosa with no significant pathologic change. Performed By: #### S ####[facility] [id number] [address] OF [facility] FINAL PERFORMING LAB Normal [facility] Comment on above: Order Comment: Speci men Type: TISSUE SPECIMENOrdering Facility: [facility] Address: [address] [place] [address] Result Comment: Diag nostic interpretation performed at: [facility], [address] [place] [address] CLIA# [id number] [employer] Supervisor: Alhaji Galvez MD Performed By: #### S ####[facility] [id number] [address] OF [facility] GROSS DESCRIPTION Normal [facility] Comment on above: Order Comment: Speci men Type: TISSUE SPECIMENOrdering Facility: [facility] Address: [address] [place] [address] Result Comment: A. C olon, Right, Biopsy [...] 2024 10:34 PM Gross examination performed at [facility], [address] [place] [id number] Performed By: #### S ####[facility] [id number] [address] [id number] [id number] [place] XR Ankle - right 3 Viewson 0 05-15-2024 Imaging Result: XRAY: Three views were taken today AP/MORT/LAT Ankle: No fractures or dislocations seen no spurring noted at the lateral ankle ligament complex noted as reported on the MRI [facility] Radiology Study observation (narrative) [facility] ALL CBC WITH AUTO DIFFon BASOPHILS ABSOLUTE AUTO 0 [facility] Basophils/100 WBC (Bld) 0.4 % 0.2 - 2.0 % [facility] Eosinophils/100 WBC (Bld) 2.2 % 0.9 - 7.0 % [facility] Erythrocyte distribution width (RBC) [Ratio] 12.9 % 11.0 - 15.0 % [facility] Hematocrit (Bld) [Volume fraction] 41.2 % 36.0 - 48.0 % [facility] Hemoglobin (Bld) [Mass/Vol] 13.8 g/dL 12.0 - 16.0 g/dL [facility] IMMATURE GRANULOCYTES ABS AUTO 0.19 High [facility] Immature granulocytes/100 WBC (Bld) 1.9 % High 0.0 - 0.5 % [facility] Interpretation and review of laboratory results Abnormal [facility] LYMPHOCYTES ABSOLUTE AUTO 3 [facility] Lymphocytes/100 WBC (Bld) 30.1 % 20.5 - 60.0 % [facility] MCH (RBC) [Entitic mass] 32.7 pg 26.7 - 34.0 pg [facility] MCHC (RBC) [Mass/Vol] 33.5 g/dL 29.9 - 35.2 g/dL [facility] MCV (RBC) [Entitic vol] 97.6 fL 81.0 - 99.0 fL [facility] MONOCYTES ABSOLUTE AUTO 0.7 [facility] Monocytes/100 WBC (Bld) 6.6 % 1.7 - 12.0 % [facility] NEUTROPHILS ABSOLUTE AUTO 5.8 [facility] Neutrophils/100 WBC (Bld) 58.8 % 43.0 - 75.0 % [facility] Platelet mean volume (Bld) [Entitic vol] 10.8 fL 9.5 - 13.5 fL [facility] TB EO # 0.2 [facility] TB PLT 206 [facility] RBC 4.22 [facility] WBC 9.9 [facility]ISY[facility] CNPNon 05-06-2024 CNPN Telephone (CARDMN) ORION HARPER ([id number]) 1990 F Date Time Provider Department 05/06/24 SOLO MORAMN During your visit today, we recorded the following information about you: Criss Mccrary 05/06/2024 1:41 PM Signed Echo was faxed to [facility] [phone] AND scanned into outside ep. Patient is [...] Status:Closed by CRISS MCCRARY on 05/06/24 Normal [facility] Liver ultrasound attenuation by transient elastographyon 05-02-2024 Fibroscan Report Date performed: May 02, 2024 Performed by: Mayela Merino LPN Interpreted by: Zehra Gary PA-C Patient fasted 3 hours:Yes Indication: Elevated [...] and referral to hepatology. Zehra Gray PA-C [facility] Fibroscan Fibrosis Risk <7 kPA = [...] Int J Clin Exp Med. 2015 Jan 15;8(10):02748-49. PMID: [id number]; PMCID: [id number]. Ruthann Bob, Juan MEEK, Rico M, Cosmo F, Tawnya J, Everardo O, Leyla F, Franci M, Alejandro G, Dorie A, Gianna E, Leyla L, French G, Kashmir A, Vicente U, Jodi S, Franc P, Max V, de Kole V, Leena M, Neo MARIE. Refining the Baveno elastography criteria for the definition of compensated advanced chronic liver disease. J Hepatol. 2020;74(5):8083-8302. doi: 10.1016/j.jhep.2020.1 1.050. Epub 2019Apr 01. PMID: [id number]. Izabel Bob, Chastity B, Martha Bob, Xiao Bob, Joon S, Nuria D, Trevin D, Trixie Kendrick. AASLD practice guidance on the clinical assessment and management of nonalcoholic fatty liver disease. Hepatology. 2022;77(5):4102-9753. doi:10.1097/HEP.34094 [id number] [facility] Radiology Study observation (narrative) [facility] Radiology Study observation (narrative) [facility] A1AT SerPl-mCncon 04-26-2024 Alpha 1 antitrypsin [Mass/Vol] 123 mg/dL Normal 90-200 [facility] Comment on above: Order Comment: Speci men Type: BLOOD SPECIMEN [facility] Address: [address] [place] [address] Performed By: #### 1 825-9, 2064-4 #### [facility] CLIA [id number] [address] [place] [address] [place] AFP SerPl-mCncon 04-26-2024 AFP [Mass/Vol] 3.01 ng/mL Normal <9.00 Lisa parry Comment on above: Order Comment: Rl basilio Type: BLOOD SPECIMEN [facility] Address: [address] [place] [address] Result Comment: The Alpha-Fetoprotein test was performed using the CooCoo DxI immunoenzymatic assay. Results obtained with different assay methods or kits cannot be used interchangeably. Performed By: #### 1 834-1 #### [facility] CLIA [id number] [address] [place] [address] STATES [facility] DENY BY IFA WITH REFLEXon Nuclear Ab Ql (S) Negative Normal Negative Lisa zepeda Comment on above: Order Comment: Rl basilio Type: BLOOD SPECIMEN [facility] Address: [address] [place] [address] Result Comment: Anti -nuclear antibody test is used as an aid in diagnosis of systemic autoimmune diseases. Where positive and clinically warranted, follow-up using disease-specific testing is recommended. Low positive titers are not uncommon with advanced age, certain chronic infections, and malignancies among others. Test methodology: Indirect fluorescence immunoassay (IFA) using HEp-2 cells. Performed By: #### A NAIFR #### [facility] IA [id number] [address] [place] [address] [place] CBC W Auto Differential pane l (Bld)on 04-26-2024 Basophils (Bld) [#/Vol] 0.06 10*3/uL [facility] Differential cell count method Nom (Bld) Auto [facility] Eosinophils (Bld) [#/Vol] [facility] Immature granulocytes (Bld) [#/Vol] 0.33 10*3/uL High [facility] Immature granulocytes/100 WBC (Bld) 2.7 % [facility] Lymphocytes (Bld) [#/Vol] 2.80 10*3/uL [facility] MCH (RBC) [Entitic mass] 32.0 pg 26.0 - 34.0 pg [facility] Monocytes (Bld) [#/Vol] 0.41 10*3/uL NINF [facility] Neutrophils (Bld) [#/Vol] 8.78 10*3/uL High [facility] Nucleated RBC (Bld) [#/Vol] NINF [facility] Nucleated RBC/100 WBC (Bld) [Ratio] 0.0 % /100 WBC [facility] Platelet mean volume (Bld) [Entitic vol] 10.8 fL 9.0 - 12.7 fL [facility] Platelets (Bld) [#/Vol] 271 10*3/uL [facility] WBC (Bld) [#/Vol] 12.39 10*3/uL High [facility] Basophils (Bld) [#/Vol] 0.06 10*3/uL Normal <0.11 [facility] Comment on above: Order Comment: Speci men Type: BLOOD SPECIMEN [facility] Address: [address] [place] [address] Performed By: #### 1 , 2063-07 #### [facility] CLIA [id number] [address] [place] [address] [place] Basophils/100 WBC (Bld) 0.5 % Normal [facility] Comment on above: Order Comment: Speci men Type: BLOOD SPECIMEN [facility] Address: [address] [place] [address] Performed By: #### 1 , 2063-07 #### [facility] CLIA [id number] [address] [place] [address] [place] Differential cell count method Nom (Bld) Auto Normal [facility] ital Comment on above: Order Comment: Speci men Type: BLOOD SPECIMEN [facility] Address: [address] [place] [address] Performed By: #### 1 8208-30, 2063-07 #### [facility] CLIA [id number] [address] [place] [address] [place] Eosinophils (Bld) [#/Vol] 10*3/uL Normal <0.46 [facility] Comment on above: Order Comment: Speci men Type: BLOOD SPECIMEN [facility] Address: [address] [place] [address] Performed By: #### 1 8208-30, 2063-07 #### [facility] CLIA [id number] [address] [place] [address] [place] Eosinophils/100 WBC (Bld) 0.1 % Normal [facility] Comment on above: Order Comment: Speci men Type: BLOOD SPECIMEN [facility] Address: [address] [place] [address] Performed By: #### 1 8208-30, 2063-07 #### [facility] CLIA [id number] [address] [place] [address] [place] Erythrocyte distribution width (RBC) [Ratio] 12.5 % Normal 11.5-15.0 [facility] Comment on above: Order Comment: Speci men Type: BLOOD SPECIMEN [facility] Address: [address] [place] [address] Performed By: #### 1 8208-30, 2063-07 #### [facility] CLIA [id number] [address] [place] [address] [place] Hematocrit (Bld) [Volume fraction] 46.1 % High 36.0-46.0 [facility] Comment on above: Order Comment: Speci men Type: BLOOD SPECIMEN [facility] Address: [address] [place] [address] Performed By: #### 1 8208-30, 2063-07 #### [facility] CLIA [id number] [address] [place] [address] [place] Hemoglobin (Bld) [Mass/Vol] 15.5 g/dL Normal 11.5-15.5 [facility] Comment on above: Order Comment: Speci men Type: BLOOD SPECIMEN [facility] Address: [address] [place] [address] Performed By: #### 1 825-9, 2063-07 #### [facility] CLIA [id number] [address] [place] [address] [place] Immature granulocytes (Bld) [#/Vol] 0.33 10*3/uL High <0.10 [facility] Comment on above: Order Comment: Speci men Type: BLOOD SPECIMEN [facility] Address: [address] [place] [address] Performed By: #### 1 82-9, 2063-07 #### [facility] CLIA [id number] [address] [place] [address] [place] Immature granulocytes/100 WBC (Bld) 2.7 % Normal [facility] Comment on above: Order Comment: Speci men Type: BLOOD SPECIMEN [facility] Address: [address] [place] [address] Performed By: #### 1 829, 2063-07 #### [facility] CLIA [id number] [address] [place] [address] [place] Lymphocytes (Bld) [#/Vol] 2.80 10*3/uL Normal 1.00-4.00 [facility] Comment on above: Order Comment: Speci men Type: BLOOD SPECIMEN [facility] Address: [address] [place] [address] Performed By: #### 1 825-9, 2063-07 #### [facility] CLIA [id number] [address] [place] [address] [place] Lymphocytes/100 WBC (Bld) 22.6 % Normal [facility] Comment on above: Order Comment: Speci men Type: BLOOD SPECIMEN [facility] Address: [address] [place] [address] Performed By: #### 1 825-9, 2063-07 #### [facility] CLIA [id number] [address] [place] [address] [place] MCH (RBC) [Entitic mass] 32.0 pg Normal 26.0-34.0 [facility] Comment on above: Order Comment: Speci men Type: BLOOD SPECIMEN [facility] Address: [address] [place] [address] Performed By: #### 1 , 2063-07 #### [facility] CLIA [id number] [address] [place] [address] [place] MCHC (RBC) [Mass/Vol] 33.6 g/dL Normal 30.5-36.0 [facility] Comment on above: Order Comment: Speci men Type: BLOOD SPECIMEN [facility] Address: [address] [place] [address] Performed By: #### 1 , 2063-07 #### [facility] CLIA [id number] [address] [place] [address] [place] MCV (RBC) [Entitic vol] 95.1 fL Normal 80.0-100.0 [facility] Comment on above: Order Comment: Speci men Type: BLOOD SPECIMEN [facility] Address: [address] [place] [address] Performed By: #### 1 , 2063-07 #### [facility] CLIA [id number] [address] [place] [address] [place] Monocytes (Bld) [#/Vol] 0.41 10*3/uL Normal <0.87 [facility] Comment on above: Order Comment: Speci men Type: BLOOD SPECIMEN [facility] Address: [address] [place] [address] Performed By: #### 1 8208-30, 2063-07 #### [facility] CLIA [id number] [address] [place] [address] [place] Monocytes/100 WBC (Bld) 3.3 % Normal [facility] Comment on above: Order Comment: Speci men Type: BLOOD SPECIMEN [facility] Address: [address] [place] [address] Performed By: #### 1 8259, 2063-07 #### [facility] CLIA [id number] [address] [place] [address] [place] Neutrophils (Bld) [#/Vol] 8.78 10*3/uL High 1.45-7.50 [facility] Comment on above: Order Comment: Speci men Type: BLOOD SPECIMEN [facility] Address: [address] [place] [address] Performed By: #### 1 829, 2063-07 #### [facility] CLIA [id number] [address] [place] [address] [place] Neutrophils/100 WBC (Bld) 70.8 % Normal [facility] Comment on above: Order Comment: Speci men Type: BLOOD SPECIMEN [facility] Address: [address] [place] [address] Performed By: #### 1 829, 2063-07 #### [facility] CLIA [id number] [address] [place] [address] [place] Nucleated RBC (Bld) [#/Vol] 10*3/uL Normal <0.01 [facility] Comment on above: Order Comment: Speci men Type: BLOOD SPECIMEN [facility] Address: [address] [place] [address] Performed By: #### 1 829, 2063-07 #### [facility] CLIA [id number] [address] [place] [address] [place] Nucleated RBC/100 WBC (Bld) [Ratio] 0.0 /100 WBC Normal [facility] Comment on above: Order Comment: Speci men Type: BLOOD SPECIMEN [facility] Address: [address] [place] [address] Performed By: #### 1 825-9, 2063-07 #### [facility] CLIA [id number] [address] [place] [address] [place] Platelet mean volume (Bld) [Entitic vol] 10.8 fL Normal 9.0-12.7 [facility] Comment on above: Order Comment: Speci men Type: BLOOD SPECIMEN [facility] Address: [address] [place] [address] Performed By: #### 1 825-9, 2063-07 #### [facility] CLIA [id number] [address] [place] [address] [place] Platelets (Bld) [#/Vol] 271 10*3/uL Normal 150-400 [facility] Comment on above: Order Comment: Speci men Type: BLOOD SPECIMEN [facility] Address: [address] [place] [address] Performed By: #### 1 825-9, 2063-07 #### [facility] CLIA [id number] [address] [place] [address] [place] RBC (Bld) [#/Vol] 4.85 10*6/uL Normal 3.90-5.20 [facility] Comment on above: Order Comment: Speci men Type: BLOOD SPECIMEN [facility] Address: [address] [place] [address] Performed By: #### 1 825-9, 2063-07 #### [facility] CLIA [id number] [address] [place] [address] [place] WBC (Bld) [#/Vol] 12.39 10*3/uL High 3.70-11.00 [facility] Comment on above: Order Comment: Speci men Type: BLOOD SPECIMEN [facility] Address: [address] [place] [address] Performed By: #### 1 825-9, 2064-4 #### [facility] CLIA [id number] [address] [place] [address] [id number] [place] [address] [place] [facility] CBC W AUTO DIFF BLDon [facility] BASOPHILS # BLD AUTO 0.06 [facility] DIFFERENTIAL METHOD BLD Auto [facility] EOSINOPHIL # BLD AUTO <0.03 [facility] LYMPHOCYTES # BLD AUTO 2.8 [facility] MONOCYTES # BLD AUTO 0.41 [facility] NEUTROPHILS # BLD AUTO 8.78 High [facility] NRBC # BLD AUTO <0.01 [facility] NRBC/100 WBC BLD-RTO 0 /100 WBC [facility] PLATELET # BLD AUTO 271 [facility] PMV BLD AUTO 10.8 fL 9.0 - 12.7 fL [facility] WBC # BLD AUTO 12.39 High [facility] IMM GRANULOCYTES # BLD AUTO 0.33 High [facility] IMM GRANULOCYTES/LEUK NFR BLD AUTO 2.7 % [facility] MCH (RBC) [Entitic mass] 32 pg 26.0 - 34.0 pg [facility] Specimen Type: BLOOD SPECIMEN [facility] Address: [address] [place] [address] Original Ordering Provider: ILIANA Alexandra 04-26-2024 ADY Office Visit (TANI ) ORION HARPER ([id number]) 1990 F Date Time Provider Department 04/26/24 [...] do not hesitate to send me a Tuloko message or call. FARNAZ Mohr Lauren, PA-C [...] she saw Dr. Hylton in 2021 in [facility]. 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 Colonosc (more content not included)... Normal [facility] Office Visit (ORMDNA ) ORION HARPER ([id number]) 1990 F Date Time Provider Department 04/26/24 [...] and plan (more content not included)... Normal [facility] Ceruloplasmin SerPl-mCncon 0 04-26-2024 Ceruloplasmin [Mass/Vol] 27 mg/dL Normal 16-45 [facility] Comment on above: Order Comment: Speci men Type: BLOOD SPECIMEN [facility] Address: [address] [place] [address] Performed By: #### 1 825-9, 2064-4 #### [facility] CLIA [id number] [address] [place] [address] [place] Comprehensive metabolic 2000 panelon 04-26-2024 Albumin [Mass/Vol] 4.7 g/dL 3.9 - 4.9 g/dL [facility] ALP [Catalytic activity/Vol] 144 U/L High 34 - 123 U/L [facility] ALT [Catalytic activity/Vol] 192 U/L High 7 - 38 U/L [facility] Anion gap [Moles/Vol] 13 mmol/L 8 - 15 mmol/L [facility] AST [Catalytic activity/Vol] 99 U/L High 13 - 35 U/L [facility] Bilirubin [Mass/Vol] 0.3 mg/dL 0.2 - 1 .3 mg/dL [facility] Calcium [Mass/Vol] 9.2 mg/dL 8.5 - 10. 2 mg/dL [facility] Chloride [Moles/Vol] 100 mmol/L 98 - 10 7 mmol/L [facility] CO2 [Moles/Vol] 25 mmol/L 22 - 30 mmol/L [facility] Creatinine [Mass/Vol] 0.58 mg/dL 0.58 - 0.96 mg/dL [facility] GFR/1.73 sq M.predicted among non-blacks MDRD (S/P/Bld) [Vol rate/Area] 121 mL/min/{1.73_m2} - PINF [facility] Comment on above: Estimated Glomerular Filtration [...] [Mass/Vol] 95 mg/dL 74 - 99 mg/dL [facility] Comment on above: The [place] [employer] Association (ADA) provides guidance for [...] Standards of Medical Care in Diabetes 2016, [place] [employer]. Diabetes Care. 2016.39(Suppl 1). Interpretation and review of laboratory results Abnormal [facility] Potassium [Moles/Vol] 4.0 mmol/L 3.7 - 5.1 mmol/L [facility] Protein [Mass/Vol] 8.0 g/dL 6.3 - 8.0 g/dL [facility] Sodium [Moles/Vol] 138 mmol/L 136 - 144 mmol/L [facility] Urea nitrogen [Mass/Vol] 12 mg/dL 7 - 21 mg/dL [facility] Albumin [Mass/Vol] 4.7 g/dL Normal 3.9-4.9 [facility] Comment on above: Order Comment: Speci men Type: BLOOD SPECIMEN Ordering Facility: [facility] Address: [address] [place] [address] Performed By: #### 1 825-9, 2063-07 #### [facility] CLIA [id number] [address] [place] [address] [place] ALP [Catalytic activity/Vol] 144 U/L High 34-123 [facility] Comment on above: Order Comment: Speci men Type: BLOOD SPECIMEN Ordering Facility: [facility] Address: [address] [place] [address] Performed By: #### 1 825-9, 2063-07 #### [facility] CLIA [id number] [address] [place] [address] [place] ALT [Catalytic activity/Vol] 192 U/L High 7-38 [facility] Comment on above: Order Comment: Speci men Type: BLOOD SPECIMEN Ordering Facility: [facility] Address: [address] [place] [address] Performed By: #### 1 825-9, 2063-07 #### [facility] CLIA [id number] [address] [place] [address] [place] Anion gap [Moles/Vol] 13 mmol/L Normal 8-15 [facility] Comment on above: Order Comment: Speci men Type: BLOOD SPECIMEN Ordering Facility: [facility] Address: [address] [place] [address] Performed By: #### 1 825-9, 2063-07 #### [facility] CLIA [id number] [address] [place] [address] [place] AST [Catalytic activity/Vol] 99 U/L High 13-35 [facility] Comment on above: Order Comment: Speci men Type: BLOOD SPECIMEN Ordering Facility: [facility] Address: [address] [place], [place] [address] Performed By: #### 1 825-9, 2063-07 #### [facility] CLIA [id number] [address] [place], [place] [id number] [place] Bilirubin [Mass/Vol] 0.3 mg/dL Normal 0.2-1.3 [facility] Comment on above: Order Comment: Speci men Type: BLOOD SPECIMEN Ordering Facility: [facility] Address: [address] [place], [place] [address] Performed By: #### 1 8259, 2063-07 #### [facility] CLIA [id number] [address] [place] [address] [place] Calcium [Mass/Vol] 9.2 mg/dL Normal 8.5-10.2 [facility] Comment on above: Order Comment: Speci men Type: BLOOD SPECIMEN Ordering Facility: [facility] Address: [address] [place], [place] [address] Performed By: #### 1 8259, 2063-07 #### [facility] CLIA [id number] [address] [place] [address] [place] Chloride [Moles/Vol] 100 mmol/L Normal 98-107 [facility] Comment on above: Order Comment: Speci men Type: BLOOD SPECIMEN Ordering Facility: [facility] Address: [address] [place], [place] [address] Performed By: #### 1 825-9, 2063-07 #### [facility] CLIA [id number] [address] [place] [address] [place] CO2 [Moles/Vol] 25 mmol/L Normal 22-30 [facility] Comment on above: Order Comment: Speci men Type: BLOOD SPECIMEN Ordering Facility: [facility] Address: [address] [place], [place] [address] Performed By: #### 1 825-9, 2063-07 #### [facility] CLIA [id number] [address] [place] [address] [place] Creatinine [Mass/Vol] 0.58 mg/dL Normal 0.58-0.96 [facility] Comment on above: Order Comment: Rl basilio Type: BLOOD SPECIMEN Ordering Facility: [facility] Address: [address] [place] [address] Performed By: #### 1 8259, 2063-07 #### [facility] CLIA [id number] [address] [place] [address] [place] Creatinine and Glomerular filtration rate.predicted panel (S/P/Bld) 121 mL/min/1.73m??? Normal >=60 [facility] Comment on above: Order Comment: Rl basilio Type: BLOOD SPECIMEN Ordering Facility: [facility] Address: [address] [place] [address] Result Comment: Chely mated Glomerular Filtration Rate [...] accurately reflect actual GFR. Performed By: #### 1 8259, 2063-07 #### [facility] CLIA [id number] [address] [place] [address] [place] Glucose [Mass/Vol] 95 mg/dL Normal 74-99 [facility] Comment on above: Order Comment: Rl basilio Type: BLOOD SPECIMEN Ordering Facility: [facility] Address: [address] [place] [address] Result Comment: The [place] [employer] (ADA) provides guidance for cutoff [...] Standards of Medical Care in Diabetes 2016, [place] [employer]. Diabetes Care. 2016.39(Suppl 1). Performed By: #### 1 8208-30, 2063-07 #### [facility] CLIA [id number] [address] [place] [address] [place] Potassium [Moles/Vol] 4.0 mmol/L Normal 3.7-5.1 [facility] Comment on above: Order Comment: Speci men Type: BLOOD SPECIMEN Ordering Facility: [facility] Address: [address] [place] [address] Performed By: #### 1 8208-30, 2063-07 #### [facility] CLIA [id number] [address] [place] [address] [place] Protein [Mass/Vol] 8.0 g/dL Normal 6.3-8.0 [facility] Comment on above: Order Comment: Speci men Type: BLOOD SPECIMEN Ordering Facility: [facility] Address: [address] [place] [address] Performed By: #### 1 8208-30, 2063-07 #### [facility] CLIA [id number] [address] [place] [address] [place] Sodium [Moles/Vol] 138 mmol/L Normal 136-144 [facility] Comment on above: Order Comment: Speci men Type: BLOOD SPECIMEN Ordering Facility: [facility] Address: [address] [place] [address] Performed By: #### 1 8208-30, 2063-07 #### [facility] CLIA [id number] [address] [place] [address] [place] Urea nitrogen [Mass/Vol] 12 mg/dL Normal 7-21 [facility] Comment on above: Order Comment: Speci chetna Type: BLOOD SPECIMEN Ordering Facility: [facility] Address: [address] [place] [address] Performed By: #### 1 825-9, 2063-07 #### [facility] CLIA [id number] [address] [place] [address] [place] FERRITINon 04-26-2024 Ferritin [Mass/Vol] 420.9 ng/mL High 14.7 - 2 05.1 ng/mL [facility] Ferritin SerPl-mCncon 2024 Ferritin [Mass/Vol] 420.9 ng/mL High 14.7-205.1 [facility] Comment on above: Order Comment: Rl basilio Type: BLOOD SPECIMEN Ordering Facility: [facility] Address: [address] [place] [address] Performed By: #### 1 825-9, 2063-07 #### [facility] CLIA [id number] [address] [place] [address] [place] Ferritin [Mass/Vol]on 2024 Interpretation and review of laboratory results Abnormal [facility] HAV IgM Ser Qlon 04-26-2024 HAV IgM Ql (S) Negative Normal Negative [facility] Comment on above: Order Comment: Rl basilio Type: BLOOD SPECIMEN Ordering Facility: [facility] Address: [address] [place] [address] Result Comment: No e vidence of recent infection with Hepatitis A virus. Performed By: #### 3 1204-1, 08607-9, 5195-3 #### [facility] CLIA [id number] [address] [place] [address] [place] HBV core IgM Ser Qlon 2024 HBV core IgM Ql (S) Negative Normal Negative [facility] Comment on above: Order Comment: Rl basilio Type: BLOOD SPECIMEN Ordering Facility: [facility] Address: [address] [place] [address] Result Comment: No e vidence of recent infection with Hepatitis B virus. Should recent infection be suspected, repeat testing may be considered 3-4 weeks after this draw. Performed By: #### 3 1204-1, 53183-8, 5195-3 #### [facility] CLIA [id number] [address] [place] [address] [place] HBV surface Ag Ser Qlon -0 HBV surface Ag Ql (S) Negative Normal Negative [facility] Comment on above: Order Comment: Speci men Type: BLOOD SPECIMEN Ordering Facility: [facility] Address: [address] [place] [address] Performed By: #### 3 1204-1, 83489-6, 5195-3 #### [facility] CLIA [id number] [address] [place] [address] [place] HCV Ab Ser Qlon 04-26-2024 HCV Ab Ql (S) Negative Normal Negative [facility] Comment on above: Order Comment: Speci men Type: BLOOD SPECIMEN Ordering Facility: [facility] Address: [address] [place] [address] Result Comment: The result suggests no evidence of active infection with Hepatitis C virus. Should recent infection be suspected, repeat testing may be considered 4-6 weeks after this draw. Performed By: #### 1 6128-1 #### [facility] CLIA [id number] [address] [place] [address] [place] Iron and Iron binding capaci ty panelon 04-26-2024 Interpretation and review of laboratory results Normal [facility] Iron [Mass/Vol] 105 ug/dL 41 - 186 ug/dL [facility] Iron binding capacity [Mass/Vol] 340 ug/dL 232 - 386 ug/dL [facility] Iron/TIBC [Molar ratio] 30.9 % 15.0 - 57.0 % [facility] Iron [Mass/Vol] 105 ug/dL Normal 41-186 [facility] Comment on above: Order Comment: Speci men Type: BLOOD SPECIMEN Ordering Facility: [facility] Address: [address] [place] [address] Performed By: #### 1 825-9, 2063-07 #### [facility] CLIA [id number] [address] [place] [address] [place] Iron binding capacity [Mass/Vol] 340 ug/dL Normal 232-386 [facility] Comment on above: Order Comment: Speci men Type: BLOOD SPECIMEN Ordering Facility: [facility] Address: [address] [place] [address] Performed By: #### 1 825-9, 2063-07 #### [facility] CLIA [id number] [address] [place] [address] [place] Iron/TIBC [Molar ratio] 30.9 % Normal 15.0-57.0 [facility] Comment on above: Order Comment: Speci men Type: BLOOD SPECIMEN Ordering Facility: [facility] Address: [address] [place] [address] Performed By: #### 1 825-9, 2063-07 #### [facility] CLIA [id number] [address] [place] [address] [place] Laboratory - Hematology and Cell countson 04-26-2024 Basophils/100 WBC (Bld) 0.5 % [facility] Eosinophils/100 WBC (Bld) 0.1 % [facility] Erythrocyte distribution width (RBC) [Ratio] 12.5 % 11.5 - 15.0 % [facility] Hematocrit (Bld) [Volume fraction] 46.1 % High 36.0 - 46.0 % [facility] Hemoglobin (Bld) [Mass/Vol] 15.5 g/dL 11.5 - 15.5 g/dL [facility] Lymphocytes/100 WBC (Bld) 22.6 % [facility] MCHC (RBC) [Mass/Vol] 33.6 g/dL 30.5 - 36.0 g/dL [facility] MCV (RBC) [Entitic vol] 95.1 fL 80.0 - 100.0 fL [facility] Monocytes/100 WBC (Bld) 3.3 % [facility] Neutrophils/100 WBC (Bld) 70.8 % [facility] RBC (Bld) [#/Vol] 4.85 10*6/uL 3.90 - 5.2 0 m/uL [facility] Mitochondria Ab IF Ql (S)on 04-26-2024 Mitochondria M2 Ab IA Qn (S) 2.8 Units Normal <=20.0 [facility] Comment on above: Order Comment: Rl basilio Type: BLOOD SPECIMEN Ordering Facility: [facility] Address: [address] [place] [address] Performed By: #### 1 8259, 2063-07 #### [facility] CLIA [id number] [address] [place] [address] [place] Mitochondria M2 Ab Ql (S) Negative Normal Negative [facility] Comment on above: Order Comment: Rl basilio Type: BLOOD SPECIMEN Ordering Facility: [facility] Address: [address] [place] [address] Result Comment: Anti -mitochondrial antibody test is used as an aid in diagnosis of primary biliary cholangitis. Clinical correlation is required. Performed By: #### 1 8259, 2063-07 #### [facility] CLIA [id number] [address] [place] [address] [place] No Panel Informationon 04-26 [facility] Interpretation and review of laboratory results Abnormal [facility] PT panel Coag (PPP)on 2024 INR Coag (PPP) [Relative time] 0.9 {INR} 0.9 - 1.3 [facility] Comment on above: Vitamin K Antagonist (VKA) Therapeutic Range: INR 2 to 3 (Target INR of 2.5) Note: For patients treated with VKA drugs, such as warfarin, the [place] [employer] 2012 Guideline recommends [...] Linda LEWIS et óscar. Chest 2012, 141:7S-47S farshad Murrieta RA. [facility] 2017, 70: 252-289 Interpretation and review of laboratory results Normal [facility] PT Coag (PPP) [Time] 10.6 s [facility] INR Coag (PPP) [Relative time] 0.9 {INR} Normal 0.9-1.3 [facility] Comment on above: Order Comment: Rl basilio Type: BLOOD SPECIMEN Ordering Facility: [facility] Address: [address] [place] [address] Result Comment: Maya min K Antagonist (VKA) Therapeutic Range: INR 2 to 3 (Target INR of 2.5) Note: For patients treated with VKA drugs, such as warfarin, the [place] [employer] 2012 Guideline recommends [...] 2.5 to 3.5 (target INR of 3). iLnda LEWIS et óscar. Chest 2012, 141:7S-47S farshad Murrieta RA. [facility] 2017, 70: 252-289 Performed By: #### 3 4528-0 #### [facility] CLIA [id number] [address] [facility] [place] [address] [place] PT Coag (PPP) [Time] 10.6 s Normal 9.7-13.0 [facility] Comment on above: Order Comment: Rl basilio Type: BLOOD SPECIMEN Ordering Facility: [facility] Address: [address] [place] [address] Performed By: #### 3 4528-0 #### [facility] CLIA [id number] [address] [facility] [place] [address] [place] Smooth muscle Ab Ql (S)on ACTIN SMOOTH MUSCLE IGG QUALITATIVE Negative Normal Negative [facility] Comment on above: Order Comment: Speci men Type: BLOOD SPECIMEN Ordering Facility: [facility] Address: [address] [place] [address] Performed By: #### 1 825-9, 2063-07 #### [facility] CLIA [id number] [address] [place] [address] [place] ACTIN SMOOTH MUSCLE IGG QUANTITATIVE 5 Units Normal <20 [facility] Comment on above: Order Comment: Speci men Type: BLOOD SPECIMEN Ordering Facility: [facility] Address: [address] [place] [address] Performed By: #### 1 825-9, 2063-07 #### [facility] CLIA [id number] [address] [place] [address] [place] ECHOon 04-09-2024 Echocardiography Echocardiography Report: Transthoracic Echo [facility] Date of service: 04/09/2024 3:28:57 PM Ordering physician: SOLO MORA Indication: Syncope Technologist: Josephine West [facility] Interpreting physician: Sheri Ac MD PATIENT: [...] * * Final * * * CC [facility] [facility] : [id number] CNPN Telephone (CARDMN) ORION HARPER ([id number]) 1990 F Date Time Provider Department 04/05/24 SOLO MORA During your visit today, we recorded the following information about you: Criss Mccrary 04/05/2024 1:02 PM Signed Outside ep I have a copy @ my desk Criss Velez 04/09/2024 11:49 AM Signed April 09, 2024 Patient Contact Number: [phone] Patient last seen within the last year: Yes 12/15 Reason For Call: Test Results Zio- 12/2023 Physician: Dr. Mora Patient was informed that non-urgent calls may be returned within the next three business days. Yes Joy Dahl RN 04/09/2024 2:14 PM Signed Cardiac clearance and office noted faxed to [facility]. In regards to Zio monitor. Dr Mora [...] Medical Records [[id number]] Cmt: Cardio Clearance [facility] Results [95] Cmt: Zio Prescriptions as of [...] Status:Closed by CRISS MCCRARY on 04/05/24 Normal [facility] HEMOGLOBIN A1con 04-04-2024 HEMOGLOBIN A1c 5.5 [...] diagnosis of diabetes in children. According to [place] [employer] (ADA) guidelines, hemoglobin A1c <7.0% represents optimal control in non- diabetic patients. Different metrics may apply to specific patient populations. Standards of Medical Care in Diabetes(ADA). Performed By: #### 4 19, 033 #### [employer] [address] [place] [address] Deputy Sheriff Lieutenant: Tim Dotson MD POTASSIUMon 04-04-2024 Potassium [Moles/Vol] 3.7 mmol/L Normal 3.5-5.3 [facility] Comment on above: Order Comment: FASTI NG:YES FASTING: YES Performed By: #### 4 96 733 #### [facility] [address], [address] [place] [address] Deputy Sheriff Lieutenant: Tim Dotson MD CNPEma 04-02-2024 CNPN Telephone (CARDMN) ORION HARPER ([id number]) 1990 F Date Time Provider Department 04/02/24 SOLO MORA During your visit today, we recorded the following information about you: Criss Mccrary 04/02/2024 3:53 PM Signed This 'Ankle Surgery Clearance' was faxed over to Dr. Giovani Hagen (PCP) @ [phone] for signing. I spoke with the patient. [...] Received Outside Medical Records [[id number]] Cmt: [facility] [place] Prescriptions as of 04/02/2024 - amphetamine-dextroamp hetamine [...] Status:Closed by CRISS MCCRARY on 04/02/24 Normal [facility] IGP,APTIMA HPV,AGE GDLNon AGE GDLN ACOG TESTING Note . [facility] Comment on above: TESTS RESULT FLAG UN ITS REF RANGE LAB Clinician Provided Cytology Information Source.............[place]ag[place] No. of containers..01 ThinPrep Vial Age Algo ACOG Starla... 30-65 01 FLAG LEGEND: L-Low Normal,H-High Normal,LL-Alert Low,HH-Alert High <-Panic Low,>-Panic High,A-Abnormal,AA-Critical Abnormal Performed at: 01 [address] [place] [address] Zoraida Hawkins MD, HPV APTIMA Negative Negative [facility] Comment on above: This nucleic acid am plification test detects fourteen high- risk HPV types (16,18,31,33,35,39,45,51,52,56,58,59,66,68) without differentiation. Performed at: = - [address], [place] [id number] Senior Internal Auditor: Zoraida Hawkins MD, Phone: [phone] Performed at: - [address] [id number] Senior Internal Auditor: Zoraida Hawkisn MD, Phone: [phone] IGP, APTIMA HPV, RFX 16/18,45 Note . [facility] Comment on above: TESTS RESULT FLAG UN ITS REF RANGE LAB DIAGNOSIS: 02 NEGATIVE FOR INTRAEPITHELIAL LESION OR MALIGNANCY. Specimen adequacy: 02 Satisfactory for evaluation. Performed by: 02 Zehra Brush, School Physical Therapist (ASC) . 02 Note: Note 02 The [...] <-Panic Low,>-Panic High,A-Abnormal,AA-Critical Abnormal Performed at: 02 [facility] [address] [facility] [place] [address] Zoraida Hawkins MD, SPATULA-ALONE VAGINA [facility] Ambulatory Visit Summaryon 0 12-28-2023 Ambulatory Visit [...] FRIEDMAN, Madhuri Kendrick Where: [facility] [id number]- Medications What How Much When Instructions Unchanged [...] choosing us for your care. Normal [facility] Urology Office/Clinic Noteon 12-28-2023 Urology Office/Clinic Note Urology Office/Clinic Note Chief Complaint Patient is here for follow up with [facility] HPI Staff 1 year with [facility] done 11/16/23. Dx: recurrent UTI and kidney stones Patient has been having recurrent UTI's. She does AeroFSF Zuujit thru video zoom and gets abx without [...] # 20 cap(s), Refills(s) 2, Pharmacy: [facility]/pharmacy #[id number], 158, cm, 12/28/23 15:24:00 EDT, Height/Length Dosing, 87, kg, 12/28/23 15:24:00 EDT, Weight Dosing E&M of Est. Patient Moderate 30-39 Min 45406 2. Kidney stones (N20.0: Calculus of kidney) S/p R ESWL. KUB 06/29/22 at [facility] - negative Metabolic workup 07/08/22 - slightly elevated Na (149), low output volume (1000 mL) KUB 11/16/23 - negative no recent flank pain, gross hematuria, stone passage. continue stone prevention diet repeat imaging 1 yr Ordered: cephalexin, See Instructions, 1 cap po after intercourse to prevent UTI, # 20 cap(s), Refills(s) 2, [id number] 158, cm, 12/28/23 15:24:00 EDT, Height/Length Dosing, 87, kg, 12/28/23 15:24:00 EDT, Weight Dosing E&M of Est. Patient Moderate 30-39 Min 85569 Urnls Dip Stick Auto w/o Microscopy POC 19687 3. Smoker (F17.200: Nicotine dependence, unspecified, uncomplicated) cessation encouraged Ordered: cephalexin, See Instructions, 1 cap po after intercourse to prevent UTI, # 20 cap(s), Refills(s) 2, Pharmacy: [facility]/pharmacy #[id number], 158, cm, 12/28/23 15:24:00 EDT, Height/Length Dosing, 87, kg, 12/28/23 15:24:00 EDT, Weight Dosing E&M of Est. Patient Moderate 30-39 Min 27216 Follow-up With When Contact Information BHAVESH DEJESUS PA-C, URL Within 1 year Additional Instructions: Patient Education Kidney Stones, Zyft-zp-Mtnf Problem List/Past Medical History Ongoing Kidney stones [...] Mother. Immunizations Vaccine Date Status Comments SARSCoV2 mRNA(ofrxcnuwh-dwfi-n jesusros) vac 11/02/2021 Recorded SARS-CoV-2 (COVID-19) mRNA BNT-162b2 [...] vaccine, inactiva (more content not included)... Normal [facility] Comment on above: Result Comment: Elec tronically Signed By: BHAVESH DEJESUS PA-C\.br\Date and Time Signed: 12/28/23 16:01 EDT CNOVon 12-19-2023 CNOV Office Visit (CARDMN ) ORION HARPER ([id number]) 1990 F Date Time Provider Department 12/19/23 2:45 PM SOLO MORA CARDMN During your visit today, we recorded the following information about you: Pulse Blood pressure Weight Height 94/minute 127/91 85.3 kg 1.575 m Solo Mora MD 12/28/2023 2:49 AM Signed [facility]er Department of Cardiovascular Medicine SECTION OF CARDIAC PACING and ELECTROPHYSIOLOGY OUTPATIENT VISIT DATE December 19, 2023 OUTPATIENT VISIT TYPE NEW PRIMARY CARE PHYSICIAN: Giovani Hagen MD [address] [place] [address] CHIEF COMPLAINT: Syncope, cardiac evaluation for family [...] had any workup done including Stress Echo, 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 Reports symptoms [...] No per (more content not included)... Normal [facility] ECG COMPLETEon 12-19-2023 ECG COMPLETE Ventricular Rate : 8 8 BPM Atrial Rate : 88 BPM P-R Interval : 148 ms QRS Duration : 78 ms Q-T Interval : 380 ms QTC Calculation(Bazett) : 459 ms Calculated P [place] : 62 degrees Calculated R [place] : 55 degrees Calculated T [place] : 38 degrees NORMAL SINUS RHYTHM NORMAL ECG Confirmed by MD BAH HEBA ([id number]) on 12/30/2023 6:45:12 PM NAME : ORION HARPER PID : [id number] : 1990 Gender : Female Race : Other ORD : [id number] Procedure Date : Dec 19 2023 13:51:58 Edit Date : Dec 30 2023 18:45:15 Diagnosis: NORMAL SINUS RHYTHM NORMAL ECG Confirmed by MD BAH HEBA ([id number]) on 12/30/2023 6:45:12 PM Test Reason : Location : 314 : J14 J1-4 Overread By : MD BAH HEBA Edited By : MD BAH HEBA Referred By : , Acquired by : CHELSEY JOSEPH [facility] ALL CBC WITH AUTO DIFFon BASOPHILS ABSOLUTE AUTO 0.0 [facility] Basophils/100 WBC (Bld) 0.4 % 0.2 - 2.0 % [facility] Eosinophils/100 WBC (Bld) 2.8 % 0.9 - 7.0 % [facility] Erythrocyte distribution width (RBC) [Ratio] 12.4 % 11.0 - 15.0 % [facility] Hematocrit (Bld) [Volume fraction] 41.9 % 36.0 - 48.0 % [facility] Hemoglobin (Bld) [Mass/Vol] 14.2 g/dL 12.0 - 16.0 g/dL [facility] IMMATURE GRANULOCYTES ABS AUTO 0.03 [facility] Immature granulocytes/100 WBC (Bld) 0.4 % 0.0 - 0.5 % [facility] LYMPHOCYTES ABSOLUTE AUTO 2.8 [facility] Lymphocytes/100 WBC (Bld) 35.6 % 20.5 - 60.0 % [facility] MCH (RBC) [Entitic mass] 32.1 pg 26.7 - 34.0 pg [facility] MCHC (RBC) [Mass/Vol] 33.9 g/dL 29.9 - 35.2 g/dL [facility] MCV (RBC) [Entitic vol] 94.8 fL 81.0 - 99.0 fL [facility] MONOCYTES ABSOLUTE AUTO 0.5 [facility] Monocytes/100 WBC (Bld) 6.0 % 1.7 - 12.0 % [facility] NEUTROPHILS ABSOLUTE AUTO 4.3 [facility] Neutrophils/100 WBC (Bld) 54.8 % 43.0 - 75.0 % [facility] Platelet mean volume (Bld) [Entitic vol] 10.4 fL 9.5 - 13.5 fL [facility] EO # 0.2 [facility] PLT 265 [facility] RBC 4.42 [facility] WBC 7.8 [facility] CNPNon 11-02-2023 ISABELN Telephone (JESUS) MEREDITHORION ([id number]) 1990 F Date Time Provider Department 11/02/23 [...] Status:Closed by CRISS MCCRARY on 11/02/23 Normal [facility] Extra Lavender Tubeon 2022 Extra Lavender Tube Normal [facility] Comment on above: Performed By: #### X LAV, LIVP, LIP #### [facility] [address] [place] [address] Senior Internal Auditor: Ronald Pearce MD Lipaseon 03-24-2023 Lipase [Catalytic activity/Vol] 260 U/L High 13-60 [facility] Comment on above: Performed By: #### X LAV, LIVP, LIP #### [facility] [address] [place] [address] Senior Internal Auditor: Ronlad Pearce MD Liver Profileon 03-24-2023 Albumin [Mass/Vol] 3.5 g/dL Normal 3.5-5.2 [facility] Comment on above: Performed By: #### X LAV, LIVP, LIP ####[facility] [address] [facility], [place] [phone] Director: Ronald Pearce MD Alkaline Phos 321 U/L High 35-104 [facility] Comment on above: Performed By: #### X LAV, LIVP, LIP ####[facility] [address] [facility] [place] [phone] Director: Ronald Pearce MD ALT [Catalytic activity/Vol] 137 U/L High 5-33 [facility] Comment on above: Performed By: #### X LAV, LIVP, LIP ####[facility] [address], [place] [phone] Director: Ronald Pearce MD AST [Catalytic activity/Vol] 60 U/L High <32 [facility] Comment on above: Performed By: #### X LAV, LIVP, LIP ####[facility] [address] [place] [phone] Director: Ronald Pearce MD Bilirubin [Mass/Vol] 1.0 mg/dL Normal 0.3-1.2 [facility] Comment on above: Performed By: #### X LAV, LIVP, LIP ####[facility] [address] [place] [phone] Director: Ronald Pearce MD Bilirubin, Indirect 0.4 mg/dL Normal 0.0-1.0 [facility] Comment on above: Performed By: #### X LAV, LIVP, LIP ####[facility] [address] [place] [address] Lab Director: Ronald Pearce MD Bilirubin.indirect [Mass/Vol] 0.6 mg/dL High <0.3 [facility] Comment on above: Performed By: #### X LAV, LIVP, LIP ####[facility] [address] [place] [address] Lab Director: Ronald Pearce MD Protein [Mass/Vol] 5.7 g/dL Low 6.4-8.3 [facility] Comment on above: Performed By: #### X LAV, LIVP, LIP ####[facility] [address] [place] [phone] Director: Ronald Pearce MD Extra Lavender Tubeon 2022 Extra Lavender Tube Normal [facility] Comment on above: Performed By: #### L IVP, XLAV ####[facility] [address] [place] [address] Lab Director: Ronald Pearce MD FL CHOLANGIOGRAM ORon [...] Danny Cole MD 03/23/23 Final result Normal [facility] Liver Profileon 03-23-2023 Albumin [Mass/Vol] 3.5 g/dL Normal 3.5-5.2 [facility] Comment on above: Performed By: #### L IVP, XLAV ####[facility] [address] [facility] [address] Lab Director: Ronald Pearce MD Alkaline Phos 293 U/L High 35-104 [facility] Comment on above: Performed By: #### L IVP, XLAV ####[facility] [address] [facility] [place] [address] Lab Director: Ronald Pearce MD ALT [Catalytic activity/Vol] 111 U/L High 5-33 [facility] Comment on above: Performed By: #### L IVP, XLAV ####[facility] [address] [facility], [place] [phone] Director: Ronald Pearce MD AST [Catalytic activity/Vol] 43 U/L High <32 [facility] Comment on above: Performed By: #### L IVP, XLAV ####[facility] [address] [place] [address] Lab Director: Ronald Pearce MD Bilirubin [Mass/Vol] 2.6 mg/dL High 0.3-1.2 [facility] Comment on above: Performed By: #### L IVP, XLAV ####[facility] [address] [place] [address] Lab Director: Ronald Pearce MD Bilirubin, Indirect 0.8 mg/dL Normal 0.0-1.0 [facility] Comment on above: Performed By: #### L IVP, XLAV ####[facility] [address], [place] [phone] Director: Ronald Pearce MD Bilirubin.indirect [Mass/Vol] 1.8 mg/dL High <0.3 [facility] Comment on above: Performed By: #### L IVP, XLAV ####[facility] [address], [place] [phone] Director: Ronald Pearce MD Protein [Mass/Vol] 5.7 g/dL Low 6.4-8.3 [facility] Comment on above: Performed By: #### L IVP, XLAV ####[facility] [address], [place] [phone] Director: Ronald Pearce MD Surgical Pathology Reporton 03-23-2023 Surgical Pathology Report (NOTE) Path Number: [id number] -- Diagnosis -- A. GALLBLADDER AND CONTENTS, [...] lesions or periductal lymph nodes are identified. Migrant Leader sections 1c. tm SM/tb1:03/24/2023 Microscopic Description Microscopic examination performed. Processing Lab: [address] [phone] Interpretation Performed at [address] [phone] SURGICAL PATHOLOGY CONSULTATION Patient Name: ORION HARPER [facility] Rec: [id number] [facility] ANATOMIC PATHOLOGY [address] [place] [phone] Normal [facility] CBC with Diffon 03-22-2023 Abs. Basophil <0.03 Normal 0.00-0.20 [facility] Comment on above: Performed By: #### C DP, LIP, CMPX #### [facility] [address] [place], [place] [phone] Senior Internal Auditor: Ronald Pearce MD #### TRIG #### [facility] [employer] [address] [place] [address] [phone] Senior Internal Auditor: Elio Marley MD Abs.Imm.Granulocyte 0.03 k/uL Normal 0.00-0.30 [facility] Comment on above: Performed By: #### C DP, LIP, CMPX #### [facility] [address] [place], [place] [phone] Senior Internal Auditor: Ronald Pearce MD #### TRIG #### [address] [phone] Senior Internal Auditor: Elio Marley MD Abs.Neutrophil (Seg) 6.89 k/uL Normal 1.50-8.10 [facility] Comment on above: Performed By: #### C DP, LIP, CMPX #### [facility] [address] [place] [address] Senior Internal Auditor: Ronald Pearce MD #### TRIG #### [address] [address] Senior Internal Auditor: Elio Marley MD Basophils/100 WBC (Bld) 0 % Normal 0-2 [facility] Comment on above: Performed By: #### C DP, LIP, CMPX #### [facility] [address] [place] [address] Senior Internal Auditor: Ronald Pearce MD #### TRIG #### [address] [address] Senior Internal Auditor: Elio Marley MD Eosinophils (Bld) [#/Vol] 0.07 10*3/uL Normal 0.00-0.44 [facility] Comment on above: Performed By: #### C DP, LIP, CMPX #### [facility] [address] [place] [address] Senior Internal Auditor: Ronald Pearce MD #### TRIG #### [address] [address] Senior Internal Auditor: Elio Marley MD Eosinophils/100 WBC (Bld) 1 % Normal 1-4 [facility] Comment on above: Performed By: #### C DP, LIP, CMPX #### [facility] [address] [place] [address] Senior Internal Auditor: Ronald Pearce MD #### TRIG #### [address] [address] Senior Internal Auditor: Elio Marley MD Erythrocyte distribution width (RBC) [Ratio] 12.2 % Normal 11.8-14.4 [facility] Comment on above: Performed By: #### C DP, LIP, CMPX #### [facility] [address] [place] [address] Senior Internal Auditor: Ronald Pearce MD #### TRIG #### [address] [address] Senior Internal Auditor: Elio Marley MD Hematocrit (Bld) [Volume fraction] 36.9 % Normal 36.3-47.1 [facility] Comment on above: Performed By: #### C DP, LIP, CMPX #### [facility] [address] [place] [address] Senior Internal Auditor: Ronald Pearce MD #### TRIG #### [address] [address] Senior Internal Auditor: Elio Marley MD Hemoglobin (Bld) [Mass/Vol] 12.1 g/dL Normal 11.9-15.1 [facility] Comment on above: Performed By: #### C DP, LIP, CMPX #### [facility] [address] [place] [address] Senior Internal Auditor: Ronald Pearce MD #### TRIG #### [address] [address] Senior Internal Auditor: Elio Marley MD Immature granulocytes/100 WBC (Bld) 0 % Normal 0 [facility] Comment on above: Performed By: #### C DP, LIP, CMPX #### [facility] [address] [place] [address] Senior Internal Auditor: Ronald Pearce MD #### TRIG #### [address] [address] Senior Internal Auditor: Elio Marley MD Lymphocytes (Bld) [#/Vol] 1.62 10*3/uL Normal 1.10-3.70 [facility] Comment on above: Performed By: #### C DP, LIP, CMPX #### [facility] [address] [place] [address] Senior Internal Auditor: Ronald Pearce MD #### TRIG #### [address] [address] Senior Internal Auditor: Elio Marley MD Lymphocytes/100 WBC (Bld) 18 % Low 24-43 [facility] Comment on above: Performed By: #### C DP, LIP, CMPX #### [facility] [address] [place] [address] Senior Internal Auditor: Ronald Pearce MD #### TRIG #### [address] [address] Senior Internal Auditor: Elio Marley MD MCH (RBC) [Entitic mass] 32.5 pg Normal 25.2-33.5 [facility] Comment on above: Performed By: #### C DP, LIP, CMPX #### [facility] [address] [place] [address] Senior Internal Auditor: Ronald Paerce MD #### TRIG #### [address] [address] Senior Internal Auditor: Elio Marley MD MCHC (RBC) [Mass/Vol] 32.8 g/dL Normal 28.4-34.8 [facility] Comment on above: Performed By: #### C DP, LIP, CMPX #### [facility] [address] [place] [address] Senior Internal Auditor: Ronald Pearce MD #### TRIG #### [address] [address] Senior Internal Auditor: Elio Marley MD MCV (RBC) [Entitic vol] 99.2 fL Normal 82.6-102.9 [facility] Comment on above: Performed By: #### C DP, LIP, CMPX #### [facility] [address] [place] [address] Senior Internal Auditor: Ronald Pearce MD #### TRIG #### [address] [address] Senior Internal Auditor: Elio Marley MD Monocytes (Bld) [#/Vol] 0.57 10*3/uL Normal 0.10-1.20 [facility] Comment on above: Performed By: #### C DP, LIP, CMPX #### [facility] [address] [place] [address] Senior Internal Auditor: Ronald Pearce MD #### TRIG #### [address] [address] Senior Internal Auditor: Elio Marley MD Monocytes/100 WBC (Bld) 6 % Normal 3-12 [facility] Comment on above: Performed By: #### C DP, LIP, CMPX #### [facility] [address] [place] [address] Senior Internal Auditor: Ronald Pearce MD #### TRIG #### [address] [address] Senior Internal Auditor: Elio Marley MD Neutrophil (Seg) 75 % High 36-65 [facility] Comment on above: Performed By: #### C DP, LIP, CMPX #### [facility] [address] [place] [address], [place] [address] Senior Internal Auditor: Ronald Pearce MD #### TRIG #### [address] [address] Senior Internal Auditor: Elio Marley MD NRBC Automated 0.0 per 100 WBC Normal 0.0 [facility] Comment on above: Performed By: #### C DP, LIP, CMPX #### [facility] [address] [place] [address] Senior Internal Auditor: Ronald Pearce MD #### TRIG #### [address] [address] Senior Internal Auditor: Elio Marley MD Platelet mean volume (Bld) [Entitic vol] 10.7 fL Normal 8.1-13.5 [facility] Comment on above: Performed By: #### C DP, LIP, CMPX #### [facility] [address] [place] [address] Senior Internal Auditor: Ronald Pearce MD #### TRIG #### [address] [address] Senior Internal Auditor: Elio Marley MD Platelets (Bld) [#/Vol] 188 10*3/uL Normal 138-453 [facility] Comment on above: Performed By: #### C DP, LIP, CMPX #### [facility] [address] [place] [address] Senior Internal Auditor: Ronald Pearce MD #### TRIG #### [address] [address] Senior Internal Auditor: Elio Marley MD RBC (Bld) [#/Vol] 3.72 10*6/uL Low 3.95-5.11 [facility] Comment on above: Performed By: #### C DP, LIP, CMPX #### [facility] [address] [place] [address] Senior Internal Auditor: Ronlad Pearce MD #### TRIG #### [address] [address] Senior Internal Auditor: Elio Marley MD WBC (Bld) [#/Vol] 9.2 10*3/uL Normal 3.5-11.3 [facility] Comment on above: Performed By: #### C DP, LIP, CMPX #### [facility] [address] [place] [address] Senior Internal Auditor: Ronald Pearce MD #### TRIG #### [address] [address] Senior Internal Auditor: Elio Marley MD Comp Metabolic Pr/rfx MGon 1 05-22-2022 Albumin [Mass/Vol] 3.5 g/dL Normal 3.5-5.2 [facility] Comment on above: Performed By: #### C DP, LIP, CMPX #### [facility] [address] [place] [address] Senior Internal Auditor: Ronald Pearce MD #### TRIG #### [address] [address] Senior Internal Auditor: Elio Marley MD Alkaline Phos 157 U/L High 35-104 [facility] Comment on above: Performed By: #### C DP, LIP, CMPX #### [facility] [address] [place] [address] Senior Internal Auditor: Ronald Pearce MD #### TRIG #### [address] [address] Senior Internal Auditor: Elio Marley MD ALT [Catalytic activity/Vol] 131 U/L High 5-33 [facility] Comment on above: Performed By: #### C DP, LIP, CMPX #### [facility] [address] [place] [address] Senior Internal Auditor: Ronald Pearce MD #### TRIG #### [facility] [address] [place] [address] Senior Internal Auditor: Elio Marley MD Anion gap [Moles/Vol] 11 mmol/L Normal 9-17 [facility] Comment on above: Performed By: #### C DP, LIP, CMPX #### [facility] [address] [place] [address] Senior Internal Auditor: Ronald Pearce MD #### TRIG #### [address] [address] Senior Internal Auditor: Elio Marley MD AST [Catalytic activity/Vol] 34 U/L High <32 [facility] Comment on above: Performed By: #### C DP, LIP, CMPX #### [facility] [address] [place] [address] Senior Internal Auditor: Ronald Pearce MD #### TRIG #### [address] [address] Senior Internal Auditor: Elio Marley MD Bilirubin [Mass/Vol] 1.9 mg/dL High 0.3-1.2 [facility] Comment on above: Performed By: #### C DP, LIP, CMPX #### [facility] [address] [place] [address] Senior Internal Auditor: Ronald Pearce MD #### TRIG #### [address] [address] Senior Internal Auditor: Elio Marley MD BUN/CRE Ratio 17 Normal 9-20 [facility] Comment on above: Performed By: #### C DP, LIP, CMPX #### [facility] [address] [place] [address] Senior Internal Auditor: Ronald Pearce MD #### TRIG #### [address] [address] Senior Internal Auditor: Elio Marley MD Calcium [Mass/Vol] 8.1 mg/dL Low 8.6-10.4 [facility] Comment on above: Performed By: #### C DP, LIP, CMPX #### [facility] [address] [place] [address] Senior Internal Auditor: Ronald Pearce MD #### TRIG #### [address] [address] Senior Internal Auditor: Elio Marley MD Chloride [Moles/Vol] 105 mmol/L Normal 98-107 [facility] Comment on above: Performed By: #### C DP, LIP, CMPX #### [facility] [address] [place] [address] Senior Internal Auditor: Ronald Pearce MD #### TRIG #### [address] [address] Senior Internal Auditor: Elio Marley MD CO2 [Moles/Vol] 21 mmol/L Normal 20-31 [facility] Comment on above: Performed By: #### C DP, LIP, CMPX #### [facility] [address] [place] [address] Senior Internal Auditor: Ronald Pearce MD #### TRIG #### [address] [address] Senior Internal Auditor: Elio Marley MD Creatinine [Mass/Vol] 0.6 mg/dL Normal 0.5-0.9 [facility] Comment on above: Performed By: #### C DP, LIP, CMPX #### [facility] [place] [address] Senior Internal Auditor: Ronald Pearce MD #### TRIG #### [address] [address] Senior Internal Auditor: Elio Marley MD GFR/1.73 sq M.predicted among non-blacks MDRD (S/P/Bld) [Vol rate/Area] mL/min/{1.73_m2} Normal >60 [facility] Comment on above: Result Comment: These [...] #### C DP, LIP, CMPX #### [facility] [address] [place] [address] Senior Internal Auditor: Ronald Pearce MD #### TRIG #### [address] [address] Senior Internal Auditor: Elio Marley MD Glucose [Mass/Vol] 75 mg/dL Normal 70-99 [facility] Comment on above: Performed By: #### C DP, LIP, CMPX #### [facility] [place] [address] Senior Internal Auditor: Ronald Pearce MD #### TRIG #### [address] [address] Senior Internal Auditor: Elio Marley MD Potassium [Moles/Vol] 4.0 mmol/L Normal 3.7-5.3 [facility] Comment on above: Performed By: #### C DP, LIP, CMPX #### [facility] [address] [place] [address] Senior Internal Auditor: Ronald Pearce MD #### TRIG #### [address] [address] Senior Internal Auditor: Elio Marley MD Protein [Mass/Vol] 5.7 g/dL Low 6.4-8.3 [facility] Comment on above: Performed By: #### C DP, LIP, CMPX #### [facility] [address] [place] [address] Senior Internal Auditor: Ronald Pearce MD #### TRIG #### [address] [address] Senior Internal Auditor: Elio Marley MD Sodium [Moles/Vol] 137 mmol/L Normal 135-144 [facility] Comment on above: Performed By: #### C DP, LIP, CMPX #### [facility] [address] [place] [address] Senior Internal Auditor: Ronald Pearce MD #### TRIG #### [address] [address] Senior Internal Auditor: Elio Marley MD Urea nitrogen [Mass/Vol] 10 mg/dL Normal 6-20 [facility] Comment on above: Performed By: #### C DP, LIP, CMPX #### [facility] [address] [place] [address] Senior Internal Auditor: Ronald Pearce MD #### TRIG #### [address] [address] Senior Internal Auditor: Elio Marley MD K (Potassium)on 03-22-2023 Potassium [Moles/Vol] 3.8 mmol/L Normal 3.7-5.3 [facility] Comment on above: Performed By: #### K #### [facility] [address] [place] [address] Senior Internal Auditor: Ronald Pearce MD Lipaseon 03-22-2023 Lipase [Catalytic activity/Vol] 198 U/L High 13-60 [facility] Comment on above: Performed By: #### C DP, LIP, CMPX #### [facility] [address] [place] [address] Senior Internal Auditor: Ronald Pearce MD #### TRIG #### [place] [address] [place] [address] Senior Internal Auditor: Elio Marley MD MRI ABDOMEN WO CONTRAST [...] Daniel Hooker MD 03/22/23 Final result Normal [facility] Triglycerideson 03-22-2023 Triglyceride [Mass/Vol] 102 mg/dL Normal 0-149 [facility] Comment on above: Result Comment: Triglyceride Guidelines: <150 Desirable 150-199 Borderline 200-499 High >499 Very high Based on AHA Guidelines for fasting triglyceride, January 2012. Performed By: #### C DP, LIP, CMPX #### [facility] [address] [place], [place] [phone] Senior Internal Auditor: Ronald Pearce MD #### TRIG #### [facility] [address] [place], [place] [phone] Senior Internal Auditor: MD Lincoln Gordillo 03-20-2023 [facility] Telephone (FVPRAD) ORION HARPER ([id number]) 1990 F Date Time Provider Department 03/20/23 [...] Encounter Status:Closed by CHARLETTE CAMPUZANO on 03/20/23 [facility] Ferritin [Mass/volume] in Se rum or PlasmaOrdered By: Erwin Hylton on 10-26-2022 Ferritin [Mass/Vol] 106.5 ng/mL 11.0-306.8 [facility] [place] GASTRIC EMPTYING SOLIDon 09-12-2022 [facility] Stomach Views for gastric emptying solid phase W radionuclide Izabella 09-12-2022 IMPRESSION: EVIDENCE OF DELAYED RATE OF GASTRIC EMPTYING OF SOLID MEAL. ABNORMAL STUDY: 36-50% RETENTION AT 4 HOURS IS CONSISTENT WITH SEVERE GASTROPARESIS. Kitchen Porter: MINAL Transcribe Date/Time: Sep 12 2022 3:02P Dictated by : LUZ MARINA VÁZQUEZ MD This examination was interpreted and the report reviewed and electronically signed by: LUZ MARINA VÁZQUEZ MD on Sep 12 2022 3:05PM [facility] * * *Final Report* * * DATE OF EXAM: Sep 12 2022 2:44PM [facility] 0017 - [place] GASTRIC EMPTYING SOLID / PROCEDURE REASON: Nausea [...] (rapid emptying is <30% retention at 1hr). [facility] * * *Final Report* * [...] 4 HOURS IS CONSISTENT WITH SEVERE GASTROPARESIS. Kitchen Porter: MINAL Transcribe Date/Time: Sep 12 2022 3:02P Dictated by : LUZ MARINA VÁZQUEZ MD This examination was interpreted and the report reviewed and electronically signed by: LUZ MARINA VÁZQUEZ MD on Sep 12 2022 3:05PM [facility] Radiology Study observation (narrative) [facility] Stomach Views for gastric emptying solid phase W radionuclide POOrdered By: Ccf Provider on 09-12-2022 [facility] EGD Study observation Narrat iveon 09-02-2022 [facility] Gastroenterology Gastrointestinal Endoscopy Patient Name: Orion Harper Procedure Date: 08/31/2022 2:51 PM Date of : 1990 Admit Type: Outpatient Age: 31 Room: [place] [address] Gender: Female 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 [employer] [facility] SURGICAL PATHOLOGYOrdered By : Padilla Jasmine on 09-01-2022 Case Report Surgical Pathology Report Case: [id number] Authorizing Provider: Carol Winn MD Collected: 08/31/2022 03:04 PM Ordering Location: Ambulatory Surgery Received: 08/31/2022 09:20 PM Pathologist: Padilla Jasmine MD Specimens: A) - SMALL INTESTINE BIOPSY, r/o celiac B) - ANTRUM (STOMACH) BIOPSY, r/o hpylori C) - STOMACH BIOPSY, gastric body r/o hpylori [facility] Work Phone: Diagnosis Comment v6lacSAbCVTqgSCxPZBe N UrldcTeZUPgwDHdD7Fazu qhJJoxDW0dPL5lkLxvmAF gdEMxIHKoMfEoy9qmi378 eOBid8xmLRABwcbxgNj2b RskP23jq7J3GwkeP01luD FuGTL6BBTyOESjjMEvRUH aOGH7BYBipBMpR4cxHEZz PM8slirnOYrpJMbgBOPpa MB3YSCcmNMnT6PnOWFyIX mbUUIgnpi8UeDfNn0exAF yeTcyMFxwYXJkXHBsYWlu PAEnXyFyYIlzjv2mT11rb BIdBLnunPtaIWPat43pa8 ajn5QokY20RQI5LPQjxAm gvBPsLPClpJx2FDQ1nMAc VDvnlAxhfCO7U6x4UHwyv HJhZXBpdGhlbGlhbCBseW 1pfG9uiAYjn7zhDtFQkWY bQGXpoU4efS3yutEhejOt yr08FXLmeEzjADu4UHVfJ WNpZmljOyBkaWZmZXJlbn PfRKisV88dw3wkKYJgtOv iohKya117wDMtfU9ggQXd ZSBsYXRlbnQgIGNlbGlhY jEjoTF4ZFrlIHYvtLI7qV UxlmCeZGUkEKAfOb8ciYr fZTAVX6MNTMKmQI8zCGri GuWpiUwrrCCuP3NvqPPwU R38PITtoCjnTNfibhRbdX RpbmcgSGVsaWNvYmFjdGV gIEA6rP5buXflLS6ezwll w5TyRXHgDbAvO62aqqMwB IHtPCumcSkht9Cib7qpS9 mdw1H8CLziki7kvQPouY= = [facility] Work Phone: FINAL DIAGNOSIS m0turSHsLJRbjPZqFBUv N KnsnrLrZVSpeKYlU1Fcjs lnOQwcWL6aTW1boVlwaSD sfFWpKPMfIgIzi6ucw714 pEZzu7taGKBPfhutvIc1r XnhO37my3R8DemzB93agE AfYJF5DYSpAQKueMTdAQK uNBI8GLPxaQPgP8fsNBXn OU0qohpcWDkxQIezMEXxw TO5JHIiyGAmM3IhUHYjXF tjRNLaytx3QtZcEv3pyVK yeTcyMFxwYXJkXHBsYWlu DINlHxQtXQ8aCIJzVDapY GludGVzdGluZSwgYmlvcH A5VoyobI3zKH6QuJNbqKZ mviKpz8AgktPlMT09N16z UPW4cFPoBN8ysn8upQX0m Tfyb9AvIMLgV6dbnBUykQ SpTDDkslSqd2rkT0i7U2J hdGNoeSBpbmNyZWFzZSBp biBpbnRyYWVwaXRoZWxpY BuqlVezkIpqM7g2CVHxxM jsFCkrdF3iCJZbBIUQzY5 tZOCzZBGvuhCseL1vVPJe z5TqvSpjzZusQZObPQCbk QIlRwLruWDiZDZ0aU3kxE Qou9LmK1hoxHLrNHDrxr2 wmYYmJEE7mXMtWEzqu8Qt lVFfj7beoQ1xZE7Zs7Lsf Kw8SKVsg3KcMXWyqEOiMl QcaSAdJFN6dP6ytQKeyvu wjyaauJCmc01jyv76jXyy YOPhsOYpbdfgJ2jcyD6qC SolnbVdRg6mELJ2l55oW5 hyWIJsYCwbCBSnq1TylCs cbGluZSAtSGVsaWNvYmFj hREjXIY1eL3emMSps9DmJ 0fotHFsASHoed4svKGlYL B2aGRpVGdhe8UfcYPov0i duM5lQS5Wc5QtmSw9ANHf w2GaJLHmxOFpHtFhgFEuU UN8aU6toDRsopjqilantO Crk59gsx33oKatLWGivUP apxyrF9ajHZU5 [facility] Work Phone: Gross Description d8ajzGQfXGKndBKQZIRq M OHpTI2ccRwcnHh6xKdgKY GjbeF6gEFkNAqcm2nvLCM 0u2mrrkRDRxcfBCXrTRiy ZHVdkxlsCvN9TMnyUAQxg rnvJHl8YKzzLIPllWL3EJ UnpQHdY9GlQFJnMW0hhqn 9OVE0FWisLNCiWsY5KIZq GrZyUkhyXTf7VNJchzJ5X na7RNZjSMJomRMpt3D7TA cdpmmzGLTjqPOlG718YQi vv9ByjAEzMQfpaAUiDROG GoayHyldbZgcb8NqeZPkY GlkIDUxMDAwIFxcbmggXF k0NROuLFjwdHRmMA2gwZc aVwydjGiwx0QskJNgAKxa EVUmFOOgBOgqPKDcKK5UT mIpQDEjZCN7KLqaHtM4VF o2CUGINrFsByHgBqKdHXB rFwBsWMx3DUq6MXgSIbGl OSXvIqAxBPIjUuC6BWkeE yBcXHQgMiBcXGYgQXJpYW gcXXggqGCbUE5liWlntVQ pbiBBLiBTTUFMTCBJTlRF Q6GJEvNoDarMTIXFKJJtc iANClxlcGljTmVzdERvYz EgDQpcbHRycGFyXGxpbjB ccmluMCANClxsdHJjaFxm afWnDAKcE3LoptBsNJtdW QOafc1cmBygJLPbJXYbeO w1rKJzSDWlkIThQPYvb6T lhODeYROyb0J0FPRds9L6 WYHwY1xnSFwqdAazVeA6h yAxLjAgeCAwLjIgeCAwLj BiY92gWVLgtAAstRluy0P qqFf9dFWcWAbxPR1yTURx WSEdGUB5MV9baNszPFRNP lxlcGljTmVzdERvYzBcdj U4WPPimKAgDKO2QG8jFPH golllMRXoCGKzSRE2QWkl pF20iVGeTYTsMNCjwOZkm VxwbGFpbiANCntcKlxlcG jyc9DauPYqPJmiJCUiYWJ cUSmwIVDuRN6OOfPrGPXp HKX1FOcaMoW2EBb3ZLXQF lMgIiAgMzExNDIyNzQiID q6ZXu1QKqHTqQsODPuDoG zCON9RQT9LNhrTiZxBWIy MiBcXGYgQXJpYWwgXFxmb BWyZN5ukTyvpIGxasdtcl L4LVZyXXcxBGUjQTOUVVB NNGPvK0SDHJNDPKagOdrH UFNZXHBhciANClxlcGljT mVzdERvYzEgDQpcbHRycG FyXGxpbjBccmluMCANClx wsHQdlOmrhvRvWKSmA5Ku kmYxOQbfXUEgrp0iqQumK EEuQWEsbIp8kBCiUUGrpJ VeUXWbs9QuhOQkHRLte9D 2GAWrm5T6MXAyR5rwIZae nXtgLxC1yrPmEbBesPUhJ tRczNYxWkDxW22kZUHfhX AhbIcpi9GlaGh1pJTyLKg yDI3xNWHeFSAuFCW6QE0o bGluZSANClxlcGljTmVzd USlQeWpdnN1IECzpOJgGG Z3EN6nHTSyxhxvGKYuQBT kETN0IEsubE91xAPqLFUx MTZccGFyfVxwbGFpbiANC epcEgkzbPwfk4SxuAFzFR lkIDUxMDAyIFxcZGIgIE9 IDnBxFWVvVJX6NLotTmV1 JSh8XDPGLlUqKaPaWyFlI SLaXdIzIHn7DCh7MNwIFm UjHDGhBlUjNZk6MdA3EMx yNyBcXHQgMiBcXGYgQXJp ORgcUAhbrJJcVU3doEnml TAykzrnjkO0GMBkKUahKG EdKBALY31CM1gkGdyCWYQ ZXHBhciANClxlcGljTmVz dERvYzEgDQpcbHRycGFyX GxpbjBccmluMCANClxsdH GmjJnhrxSzFUMyF9QewxV qFNwzXVQntp9dmQreZIFj MCWldRf8mMUbPQByoDHlV KEmk7UkiLReKPHkk5H2KH Eei5W1SURfY7fwBUqzwYd cJtW0yjEzZqauuXUiNrAo eWJeLeIzE88cZUVyyPEgs Bqgd1GfgEw1jUNxLJqdAY 7sCYMwTYBjWYL9FP8vgNc dDGHxEFYubeNTVmwWDN5l eSAxMSwgMjAyMyAxOjQxI IMWSI5ncCHvHY9PWRXkxs ELXaxdw4WfVLT9RE8apuD 7nB4xSLHdmvHhyw7sSEPo rACLrBZ4UZlqrhCfS0krg llyZII8GMRxRQH2Q5ymFZ SDjmNeXHZPmQB4DMksewR rSA4PAXE3QSe3THTuzqKS ClxlcGljTmVzdERvYzBcd vT0TVMcdFLyGRS1GD2jFM AjlbgtFSVyGAOaQXQ0XUn bdN12mPEwFVQvJQEmxWBp fWrupJXiqcELTidjdQ1mX nDmh0kcuYr5CDXQLvzumN AjtkygmgT4LEBrc6wluJd zl5VugCTsMY8trHwziO6s ZnMxNiANCn0= [facility] Work Phone: Performing Lab w3deySZoGRChiPYlReOf M XNbVLPtt3qoQIOvtQMiAb EwMzNcZnRuYmpcdWMxXGR sAzBtx4isf824kATdq3ot ISJbRlZ6kCTuYQMllZEkR 779NLPpFMcct6mwr1CwSJ KtnZTtb7G6WIQXikhwoZo 1aIrxE55kf1A0UdwaV3zt VPHmCFArU7RtGV0kDNGtB vz3ZYG1QIJ1LIZiIFZyQ5 MvPK7rGRHyqWKbFIl6v6k bdTnpLMPeKAO3i0egGFlh zsGqPJ3iil5bbGq1y3unm zEgRGVmYXVsdCBQYXJhZ3 ApcJviLv1oaKe2aAdhQqk tTLV3Ymi5AL3sck57xob6 aDbiSQUunlsmOjK5PIugO MZgmuphCLq8XGklIZWlpE D8KNLgiHKrF3ZcUWngCI9 zbvf3IOP9MGwyMUWqYpN0 NDBcaGVhZGVyeTcyMFxmb 715IOE7WeOxIL0eK0Rnw0 B3gZ4hvOZhXPWesSPtFsP fLCXftd0dzMOxIHdjb5Jm DQV1bvF8nPGpoFTjGPTuS V23Qyvys5PgGswgn0BcM4 2fcQV7HXqms1zzFP1hTlU 1vxXiBBjkv9wggB7jGuG2 DMtqEI8oLF9eMUUodR9jt mxjXHBnYnJkcmhlYWRccG eoobEgMy6gwJvdAYA6CKu mV9opoZ4hYhN7ZAtjR8xt sQ9nSOd9RGgyyXP8QKIvt K0iVD5alrmvo5ksREroUP jhAYWbjbC1cvHoTPJviOQ qH4OdmA6hTJAjWX3qawpg r0qxPPF4UVdfCEIzJGZ5B gMrWLQgr0Jpcsc5WdGxx9 IzkNIvMYdaE28qd120ZVJ yidDoN2wwoPGqeguafJYw tikhPInfbwZ2BEObWCTbH WluXGYxXGZzMjJcbGFuZz EwMzNcaGljaFxmMVxkYmN vCLVtWOqtR0gkEeTpFjNk HqYQnCFtkb3oqMpqFHqur TRfcGSazTP5bA7gZGRuqg Lxwb3rVEGkpVBAyIF4DWl ocnHgE8bfowctQDA9IVAa ATJ0R8rjKVEOfdLvWGPcI BMaaUIxKFCDMNE0SEZ5PO QjBMMNOKWqCWB8WCR7OPQ wOTRccGFyXHBhclxwYXJk XHBsYWluXGYwXGZzMjRcc OmykX1bXuPaQlTjLoorML 0cSMYgU1yvnDPcKKKvVRK jN6zpDoFfoY1hcRvuDJvw ZjJcZnMyMlxsdHJjaCBMY XDejjT6j5M2HPtqsDCevg xmMVxmczIyXGxhbmcxMDM lGGpnN2jpZbSjJHBjtPdi YArgv2CfIDRkZIZqCyFuC DmkDTB9n2A1FJsuoAOcye LJIdAOGT5ztHLktsrkIQ5 ELlxwYXJ9 [facility] Work Phone: [facility] Work Phone: EGD Study observation Narrat iveon 08-31-2022 Radiology Study observation (narrative) [facility] CITRATE URINE 24HRon 023 Citric Acid, U, 24hr 472 mg/24 hr Normal 320-1240 [facility] Comment on above: Result Comment: This test was developed and its performance characteristics determined by [employer]. It has not been cleared or approved by the Food and Drug Administration. Performed By: #### A LPHPHN #### [facility] [address] [address] [address] Li Nagel Citric Acid, Urine 472 mg/L Normal Undefined [facility] Comment on above: Performed By: #### A LPHPHN #### [facility] [address] [address] [address] Li Nagel OXALATE 24HR URINEon 023 Oxalates, Urine 19 mg/L Normal Undefined [facility] Comment on above: Performed By: #### O X24HR #### [facility] [address] [address] [address] Li Nagel Oxalates, Urine 24hr 19 mg/24 hr Normal 4-31 [facility] Comment on above: Performed By: #### O X24HR #### [facility] [address] [address] [address] Li Nagel MAGNESIUM 24HR URINEon 07-09 Magnesium 24hr Urine 45.0 mg/24 hr Normal 12.0-293.0 [facility] Comment on above: Performed By: #### I MMUN G #### [facility] [address] [place] [address] Dr. Li Nagel Magnesium UR 4.5 mg/dL Normal Not Estab. [facility] Comment on above: Performed By: #### I MMUN G #### [facility] [address] [place] [address] Dr. Li Nagel PHOSPHORUS 24HR URINEon 06-22 Phosphorus, Urine 51.4 mg/dL Normal Not Estab. [facility] Comment on above: Performed By: #### P HOS 24 #### [facility] [address] [place] [address] Dr. Li Nagel Phosphorus, Urine 24hr 514 mg/24 hr Normal 261-1078 [facility] Comment on above: Performed By: #### P HOS 24 #### [facility] [address] [place] [address] Dr. Li Nagel URIC ACID 24 HR URINEon 06-22 Uric Acid, Urine 64.0 mg/dL Normal Not Estab. [facility] Comment on above: Performed By: #### A LPHPHN #### [facility] [address] [place] [address] Dr. Li Nagel Uric Acid, Urine 24hr 640.0 mg/24 hr Normal 173.7-902. 1 [facility] Comment on above: Performed By: #### A LPHPHN #### [facility] [address] [place] [address] Dr. Li Nagel CALCIUM 24 HR URINEon 2022 CALC, 24 HR UR 155.0 mg/24 hr Normal 100.0-300.0 [facility] Comment on above: Performed By: #### I MMUN G #### [facility] [address] [place] [address] Dr. Li Nagel UR CALCIUM 15.5 mg/dL Normal 5.1-21.0 [facility] Comment on above: Performed By: #### I MMUN G #### [facility] [address] [place] [address] Dr. Li Nagel UR TOT VOL 1000 ml/24 HR Normal [facility] Comment on above: Performed By: #### I MMUN G #### [facility] [address] [place] [address] Dr. Li Nagel Performed By: #### A LPHPHN #### [facility] [address] [place] [address] Dr. Li Nagel CREA 24 HR URINEon 3 CREA, 24 HR UR 1891.80 mg/24 hr Critically high 800.00 -1,800 .00 [facility] Comment on above: Performed By: #### A LPHPHN #### [facility] [address] [place] [address] Dr. Li Nagel URINE CREAT 189.18 mg/dL Normal 20.00-300.00 [facility] Comment on above: Performed By: #### A LPHPHN #### [facility] [address] [place] [address] Dr. Li Nagel PTH INTACTon 07-08-2022 PTH, Intact 41 pg/mL Normal 15-65 [facility] Comment on above: Performed By: #### H EPACUT #### [facility] [address] [place] [address] Dr. Li Nagel SODIUM 24 HR URINEon 023 NA, 24 HR UR 149 mmol/24 hr Normal 40-220 [facility] Comment on above: Performed By: #### A LPHPHN #### [facility] [address] [place] [address] Dr. Li Nagel Sodium (U) [Moles/Vol] 149 mmol/L Critically high 30-90 [facility] Comment on above: Performed By: #### A LPHPHN #### [facility] [address] [place] [address] Dr. Li Nagel BUNon 07-06-2022 Urea nitrogen [Mass/Vol] 11.0 mg/dL Normal 7.0-18.0 [facility] Comment on above: Performed By: #### B UN, URIC, CA, K, NA, CL, CO2, CREA #### [facility] [address] [place] [address] Dr. Li Nagel CALCIUMon 07-06-2022 Calcium [Mass/Vol] 9.0 mg/dL Normal 8.5-10.1 [facility] Comment on above: Performed By: #### B UN, URIC, CA, K, NA, CL, CO2, CREA #### [facility] [address] [place] [address] Dr. Li Nagel CHLORIDEon 07-06-2022 Chloride [Moles/Vol] 107 mmol/L Normal 98-107 [facility] Comment on above: Performed By: #### I MMUN G #### [facility] [address] [place] [address] Dr. Li Nagel CO2on 07-06-2022 CO2 [Moles/Vol] 29.2 mmol/L Normal 21.0-32.0 [facility] Comment on above: Performed By: #### I MMUN G #### [facility] [address] [place] [address] Dr. Li Nagel CREATININEon 07-06-2022 Creatinine [Mass/Vol] 0.97 mg/dL Normal 0.55-1.02 [facility] Comment on above: Performed By: #### B UN, URIC, CA, K, NA, CL, CO2, CREA #### [facility] [address] [place] [address] Dr. Li Nagel EGFR-AF JORDANIAN >60 Normal >=60 [facility] Comment on above: Performed By: #### B UN, URIC, CA, K, NA, CL, CO2, CREA #### [facility] [address] [place] [address] Dr. Li Nagel EGFR-NON AF JORDANIAN >60 Normal >=60 [facility] Comment on above: Performed By: #### B UN, URIC, CA, K, NA, CL, CO2, CREA #### [facility] [address] [place] [address] Dr. Li Nagel NAon 07-06-2022 Sodium [Moles/Vol] 143 mmol/L Normal 136-145 [facility] Comment on above: Performed By: #### I MMUN G #### [facility] [address] [place] [address] Dr. Li Nagel POTASSIUMon 07-06-2022 Potassium [Moles/Vol] 3.6 mmol/L Normal 3.5-5.1 [facility] Comment on above: Performed By: #### I MMUN G #### [facility] [address] [place], [place] [address] Dr. Li Nagel URIC ACID SERUMon 07-06-2022 Urate [Mass/Vol] 4.7 mg/dL Normal 2.6-6.0 [facility] Comment on above: Performed By: #### B UN, URIC, CA, K, NA, CL, CO2, CREA #### [facility] [address] [place], [place] [address] Dr. Li Nagel SURGICAL PATHOLOGYOrdered By : Karan Nieto on 07-04-2022 Case Report Surgical Pathology Report Case: [id number] Authorizing Provider: Carol Winn MD Collected: 06/30/2022 11:43 AM Ordering Location: Ambulatory Surgery Received: 06/30/2022 10:42 PM Pathologist: Karan Nieto MD Specimens: A) - DUODENUM BIOPSY, r/o celiac B) - STOMACH BIOPSY, r/o H pylori [facility] Work Phone: Diagnosis Comment g5ytkNGhNOCzwJYrMGVh N ZdjslTtSTBhqSRoQ0Csyj btVXogRF3iBG5ccDkgpIH urQEyQUIbOpWzu2wmw521 cPSka4shDJYIawoqkRw5x NxpW48gz6G5JgmnS65irE RxIPU5HOQbMYEgeWNbHBX dFAH5CLAqeTEnC9juJWDo RG5wuvqoSEivWWpzBSAgt NZ2IECamFOyI0UcDDSkTQ omYLCgyts2NtTgCs7rhMB yeTcyMFxwYXJkXHBsYWlu QMIeYzUfSF2iAJ4kzcGpw 2VkIGludHJhZXBpdGhlbG vcqBBycA9tuN0bmWArwai bxD1hfCegPMVfg9HmR1Co m9KmfeummZ49qwAaSj7tp c2qtIs8dUVrXNHdFExvQp Yox4LwkbBhvnIcs5HoI0p uqLxyihF2nSSaOIUthCjm YyBkaXNlYXNlIGFuZCBvd GnmyhJaf77kzNIrj07wBI C5P4maYTQgsRUqbVmlTJQ eq8Wmk8YlKIioWjPziLja hrCgnD3yyKMkeI0kPVtoe Nglz9NyB7CvqvUfgUcpow mmrJ3lDSA6jH0dDRthWO1 kIHNvbWUgbWVkaWNhdGlv jeKlVEQomD5pE7QeJKBze qVkuEO9qT1qGZuihLdkKI Risd8kpmtarVHiu3Xzb0g hM8aqIEZ4xAIaQGDdhFGw PxHkP37lv3uqABWuPMByA sAatNolyYUytZp2WEtmST zkXHUmKJ5lySHakY== [facility] Work Phone: FINAL DIAGNOSIS n3ozzARqNPOeeKBvPXXa N KkkyiGuFGOirUHeW3Gjdg lsFLbgIJ6nQT7ozCgaiKX ccCQvIGXeQbRbr9zjd655 gUBpm0qbLKCFkcygxOy3e KgcE14ok9Z7RujpB12twE QiOGG8IGMnNVKisBXbFGM zFSY4GQEasVErR7vpVTSk AJ1tfttkKHzsSPzjUYFrt LW6PJAhwSGkR6TbOUIbSV rbTWKkjjd9JeIsRk3twAO yeTcyMFxwYXJkXHBsYWlu YANbOyQlLA4aVAHiONJuq G0gGDMve7QpfNdjzVIsUC 6jS04fbGzfrW00TVM5xU0 cwXCycFEts9Uhq2d7xWAn i7XlMWipjqcnkR80xdJwp oDdvCMpJ5D9emXuYU9tGQ gbL7DaHSFhONGzkkRbSJL waXRoZWxpYWwgbHltcGhv W4b1WVW3DHXtAAGwu41fQ S96OhzvSHGizRPmBLGcGX N0r30lW3cyQQJln1AsoKa alCTjWP8dD6BjzOPzWcSl aArhcRdrAZ16Z69pWNA8n KVkTWZamu5miNGnAJB1eO KlRBeckWbxj0LjE0TdsbY pkHalwcrdRFTfe8IaTWFj LKZrUTV4wzr1fYPzKZOal n0= [facility] Work Phone: Gross Description k3pjoCAmXIXxeTPWNYMd M CVzCD6aoGkekIw9gLmzLK SkvrQ1bFYlGZyph4mpBBF 2i2zpovNNMqwnYAZgMOsh MIJvmdinChI4IXbsGFGly zeaSUm4BGnoPLUhoFA7AM KnsBBuA2DfNYCtDE2kogf 8HMB7BYwjOTGoUiI4OQKa KxPfYoieTWe9XRBhnnH4W sd5EEIfAJEieLJgd9T1QG ffxdqyTUXztITiB681LRk zg6CvdPKuZTwehHIeIZJJ JiucFvmteNipz5NomFJjF GlkIDUxMDAwIFxcbmggXF y4ELTxVFdpkWZwGO4ujJv aPwiuwQebq2IztCAaLSkb OUZdFAWtUTsdXXFfGJ7ME lYgANG2Ida7Uqj7GpZ2KY c8PRBXEmFxHxWrArirMAQ 7JXLaKXz4JRe4KJhEFyI9 IDVjOWpfIWEoYKD0FQv7F FxcdCAyIFxcZiBBcmlhbC TdISQmWEzhjzE7CXMzXWs bKVNcPLJUJ0EAQrEWVPDX R4DEXPrcYZNyQJgeGVAqM 53xp9XNi7QaBC6FGKg9tf JjlstzbY1eNFIdnqJuWCj zgBYcM0hnTzPaNETZYMBe kEQxHSTyisXoq7FtPSggf iBhcmUgbXVsdGlwbGUgcG ueP4RoAI7oRWQyjjesa15 bfGH7gZWcwOGiFTflolPo ZMAgqiaqzO7wLZ97ZFlhE O6gPOcxUB4wLRQtMzQXp1 KhgAr9BLQ2Fj6ukBXyWTQ jghUwpyTdW4Lpd9P5dWXk VQnbDOOgC25pn4VKw2MkZ SSjr8vdmXqrm9HgwHMfSZ lbYPKdbXHxZRrqmT7sPcV xj9gnxUa5VTwwuaO0ASBp xn9xrTjhpD8iHTy9PTdkU PFmY0ZeP4KkYKwpRCZ7JC AwMiBcXGRiICBPVlIgIiA sEpT5JUT9VIRnJYe9UKqf P2VNOGOlKTI8FEx4OPw4C pI6TTs2KTGEJb9oBJmsXq e7SBWiELM1MYg9GSGqRAC gMiBcXGYgQXJpYWwgXFxm oVHqYI9neDjroKFpwodwo yX3YNEnHKdfNWJsZCITB9 8DC0zuRpsADQYEPPHcgeT NClxlcGljTmVzdERvYzEg DQpcbHRycGFyXGxpbjBcc mluMCANClxsdHJjaFxmcz QyZBNyN9JfwoKyDJfkHFP lhj9dkSsnVOOyQMV1s89f kOwmX7JgSO7uQFMscfuxw 03kfEF0yHGvlPQnPBynde YeSABqhhmxmT8mAY8pNNx zPQ9gWJtmUG1oMZYbBpPJ g7DszGl6OXG1Br5cyEMgQ LNkebBczhQtK6Pfb3B8pJ UuIFxwYXIgDQpccGFyIA0 TA4Zfb4DeWYflgBeeUOPx x74zjUDaHr2tbOGzBRN2Y ENsZXZlbGFuZCBDbGluaW VcYIk6EAXuAWOpiYsbMUL 3HH5qZPKmESBlbGUxEWbt C9nuRILuZYXfjWJfCR6GM HBhciANCkpUIDAzLzEwLz FrGrRtZFq0VsLKRKykXVT iDKowKNDbI48rs4PKo8Qq PARvc4arcZhyu3KakFVuI JfxBTMbxCLzCGqbeB7qHb Okh3iygUv5ASbapfO4XCL ors3mbJleaY1jRQzye6xo CML3AHFzmFZwlSEaQQxqx ByodQ0iHlWzUpb7ZLjvXR VbS8OiE2JfbnY6NTYlLRb uXGZzMTYgDQp9 [facility] Work Phone: Performing Lab t5pxaAFjINWukKTcNeVq M IEoMYEto4gaVHLceNRiBw EwMzNcZnRuYmpcdWMxXGR rLuFmw9apm027dMEwg6xy JIZbLhN5vHLoRVAqyDDcE 100ISHhHHyxx4orb4OkCV NgdWIeq5W0AGTBjivrzAt 3iXlfQ13er6D3AbvuK0vg NNDgWLWhE9HuVM2oEAOyS aw0VKD4DJN9BXHwWQZyP4 TsMB5nOLAqqMFlOBg9u0e pbFzpSRGrYJB4t3ieKWue rgCuVU1ssc1yoNn0y2bsp zEgRGVmYXVsdCBQYXJhZ3 BpiJnrGd0hcJt9qYusElc rQFF1Lsv8RI4yhj31jrs5 aJcgEBDezucxMtW9QCykO YTczzypYMa5YLhgKDGilS R1QSEcyCAdC7HpTHjtXB9 bkon9CJW1GWzoOLMlYyS6 NDBcaGVhZGVyeTcyMFxmb 231PLM2WfRyDJ4wC4Twd2 E2iZ5qsTEvGRSoiPGbWiN jIBXlkl9ixYSnRYxdx9Bl WCA5oqY6yEEgrGWqHIVdB D35Xyljd0QoDnowo3XhW7 5stZJ0UQlfj0fvVN0rExI 5maGjAEzvr2zbeD1kPdY5 BGtsKI8vIA7dBNSglU2si mxjXHBnYnJkcmhlYWRccG uddfNmEd4ulEcyIPZ6VQa cF6jolO0eTkX1RDjoA9fy wR7pZGj5ESxuhLO6EQApt K0nBP8sojfhl7zpFLfrTB rjPLLgztH2vgZlUKKnkMY qZ2HbsZ5iDUHcKN5tvirn m3flRNG1XLowZMEoQTK1T bToRAKzk5Cctvt9UcNpd4 HlySAbTIweM01yr598RRI iskVsZ8vxcEKfogiyhYXi ejzgLKvjmjS8TLRjFMXaB WluXGYxXGZzMjJcbGFuZz EwMzNcaGljaFxmMVxkYmN kXQWmVNluB3pzGsApNaAh ApOYkTKhpp8kbQzuKXvuw VWwfBRtzRD1vE1jGMJxww Pwal6xCLUhmBARwUO7WAz aszDqM4qsduchIUP0KPKb BCY0Z8hzUVIFpsEnXPYmO MEfcDJtJZDCXXW9MYV5SH WoEBYBMMAqXTD0ETM5RPW wOTRccGFyXHBhclxwYXJk XHBsYWluXGYwXGZzMjRcc FadqY0rFiOqJvWcKmbxNA 4yADItV3idaMCnPKZtMTK nV2psPeNpgS1maSudSCfy ZjJcZnMyMlxsdHJjaCBMY LRugpM8s1J8NTgegBKvhb xmMVxmczIyXGxhbmcxMDM vUUidR8hiVrSlCNIntDms WHtcs7ZaPCOfWMUxGvPeG NbbPHO1f3L0UJyujIZqhz VAHpJTWK4zhRDliqwtIR5 ELlxwYXJ9 [facility] Work Phone: [facility] Work Phone: EGD Study observation Narrat napoleon 06-30-2022 [facility] Gastroenterology Gastrointestinal Endoscopy Patient Name: Orion Harper Procedure Date: 06/30/2022 11:41 AM Date of : 1990 Admit Type: Outpatient Age: 31 Room: [place] [address] Gender: Female Note Status: Finalized Attending MD: [...] verified by the physician, the nurse, the hand stamper and the senior health physics technician in the procedure room at 11:35 [...] gastric ulcers (more content not included)... [employer] [facility] Radiology Study observation (narrative) [facility] XR KUB 1 VIEWon 06-30-2022 XR [...] JACKSON ADKINS Date: 2022-06-30 07:02 Normal [facility] US ABD RT UPPER QUADRANTon 0 06-15-2022 [facility] CT ABD/PEL WO IVCONon 2022 Radiology Result ACTIONABLE Abnormal [facility] No Panel Informationon 05-27 [facility] YKIJK-1-YDIIJJODEQU PHENOTYP INGon 05-11-2022 Svlnm-1-Zpumyjvzsim, Serum 130 mg/dL Normal 100-188 [facility] Comment on above: Result Comment: Perf ormed at: CB Performed By: #### A LPHN #### [facility] [address] [place] [id number] Li Nagel Phenotype (PI) MM Normal [facility] Comment on above: Result Comment: Phen otype [...] BN Performed By: #### A LPHN #### [facility] [address] [place] [id number] [address] Li Nagel HEREDITARY HEMOCHROMATOSIS, DNA ANALYSISon 05-11-2022 Hereditary Hemochromatosis Comment Normal [facility] Comment on above: Result Comment: Resu lt: c.845G>A (p.Qxr028Hil) - Not Detected c.187C>G (p.Hhy17Ioq) - Not Detected c.193A>T (p.Wif70Ktp) - Not Detected Not associated with increased [...] for patients who are homozygous for c.845G>A (p.Prd526Gof) and have yet to experience clinical symptoms. . Comments: The most common HFE variants associated with hereditary hemochromatosis are c.845G>A (p.Twj431Azl), c.187C>G (p.Hoz68Wsf), c.193A>T (p.Yxv23Xky). While patients homozygous for c.845G>A (p.Kui939Bfc) are the most likely to present clinical symptoms, less than 10% develop clinically significant iron overload with tissue and organ damage. . Genetic counseling is recommended to discuss the potential clinical implications of positive results, as well as recommendations for testing family members. Genetic Coordinators are available for health care providers to discuss results at [phone]). . Test Details: Three variants analyzed: c.845G>A (p.Aue673Qmp), commonly referred to as C282Y c.187C>G (p.Tko05Jqj), commonly referred to as H63D c.193A>T (p.Dpz88Msj), commonly referred to as S65C . Methods/Limitations: [...] developed and its performance characteristics determined by [employer]. It has not been cleared or approved by the Food and Drug Administration. . References: Brodie BR, Yoav PC, Deborah KV, Raymond LW, Ramsey ; [place]. Diagnosis and management of hemochromatosis: 2011 practice guideline by the [place]. Hepatology. 2011 Oct;54(1):328-43. doi: 10.1002/hep.75014. PMID: 10409166; PMCID: [id number]. Cora G, Olegario P, Fabio DW, Tabatha H, Love O, Zev S, Vazquez I, Kofi M, Sunitha S. [facility] best practice guidelines for the molecular genetic diagnosis of hereditary hemochromatosis (HH). Eur J Hum Margaret. 2016 Jul;24(4):479-95. doi: 10.1038/ejhg.2015.128. Epub 2014Oct 29. PMID: 74106146; PMCID: [id number]. . Anitra Hager, PhD, FACMG Dm Reyna, PhD Alexandro Rodriguez, PhD, FACMG Jhony Hammond, PhD, FACMG Oumar Avila, PhD, FAC Rob Brand, PhD, FACMG Pascale Gracia, PhD, FACMG Lala Marvin, PhD, FACMG Performed By: #### H EPACUT #### [facility] [address] [place] [address] Dr. Li Nagel DENY by IFAon 05-06-2022 Antinuclear Antibodies, IFA Negative Normal [facility] Comment on above: Result Comment: Nega tive <1:80 Borderline 1:80 Positive >1:80 ICAP nomenclature: AC-0 For more information about Hep-2 cell patterns use ANApatterns.org, the official website for the International Consensus on Antinuclear Antibody (DENY) Patterns (ICAP). Performed By: #### A LPHPHN #### [facility] [address] [address] [address] Li Nagel CERULOPLASMINon 05-05-2022 Ceruloplasmin 27.9 mg/dL Normal 19.0-39.0 [facility] Comment on above: Performed By: #### H EPACUT #### [facility] [address] [place] [address] Dr. Li Nagel HEPATITIS A AB IGMon 023 Hep A Ab, IgM Negative Normal Negative [facility] Comment on above: Performed By: #### I MMUN G #### [facility] [address] [address] [address] Li Nagel IMMUNOGLOBULIN G INDEX SERUM OR CSFon 05-05-2022 Albumin [Mass/Vol] 4.8 g/dL Normal 3.8-4.8 [facility] Comment on above: Performed By: #### I MMUN G #### [facility] [address] [place] [address] Dr. Li Nagel Albumin, CSF NSPINL Normal [facility] Comment on above: Result Comment: Test not performed. No spinal fluid received. contacted Radha at your facility on 05-05-2022 Performed By: #### I MMUN G #### [facility] [address] [place] [address] Dr. Li Nagel CSF IgG Index UPTCAL Normal [facility] Comment on above: Result Comment: Unab le to calculate result since non-numeric result obtained for component test. Performed By: #### I MMUN G #### [facility] [address] [place] [address] Dr. Li Nagel IgG, Quant, CSF NSPINL Normal [facility] Comment on above: Result Comment: Test not performed. No spinal fluid received. contacted Radha at your facility on 05-05-2022 Performed By: #### I MMUN G #### [facility] [address] [place] [address] Dr. Li Nagel IgG/Alb Ratio, CSF UPTCAL Normal [facility] Comment on above: Result Comment: Unab le to calculate result since non-numeric result obtained for component test. Performed By: #### I MMUN G #### [facility] [address] [place] [address] Dr. Li Nagel Immunoglobulin G, Qn, Serum 971 mg/dL Normal 586-1602 [facility] Comment on above: Performed By: #### I MMUN G #### [facility] [address] [place] [address] Dr. Li Nagel LIVER-KIDNEY MICROSOMAL (LKM ) ABon 05-05-2022 Liver-Kidney Microsomal Ab 1.3 Units Normal 0.0-20.0 [facility] Comment on above: Result Comment: Nega tive 0.0 - 20.0 Equivocal 20.1 - 24.9 Positive >24.9 . LKM type 1 antibodies are detected in patients with autoimmune hepatitis type 2 and in up to 8% of patients with chronic HCV infection. Performed By: #### H EPACUT #### [facility] [address] [place] [address] Dr. Li Nagel MITICHONDRIAL (M2) ANTIBODYo n 05-05-2022 Mitochondrial (M2) Antibody <20.0 Normal 0.0-20.0 [facility] Comment on above: Result Comment: Nega tive 0.0 - 20.0 Equivocal 20.1 - 24.9 Positive >24.9 . Mitochondrial (M2) Antibodies are found in 90-96% of patients with primary biliary cirrhosis. Performed By: #### A LPHPHN #### [facility] [address] [place] [address] Dr. Li Nagel SMOOTH MUSCLE ANTIBODYon Actin (Smooth Muscle) Antibody 9 Units Normal 0-19 The [facility] Comment on above: Result Comment: Nega tive 0 - 19 Weak positive 20 - 30 Moderate to strong positive >30 . Actin Antibodies are found in 52-85% of patients with autoimmune hepatitis or chronic active hepatitis and in 22% of patients with primary biliary cirrhosis. Performed By: #### A LPHPHN #### [facility] [address] [place] [address] Dr. Li Nagel FERRITINon 05-03-2022 Ferritin [Mass/Vol] 319.0 ng/mL Critically high 6.2-137.0 [facility] Comment on above: Performed By: #### A LPHPHN #### [facility] [address] [address] [address] Li Nagel PAP ACOG PANEL 2: 30 to 65on 04-28-2022 . . Normal [facility] Comment on above: Result Comment: Perf ormed at: BA Performed By: #### I MMUN G #### [facility] [address] [place] [address] Dr. Li Nagel Age Gdln ACOG Testing 30-65 Normal [facility] Comment on above: Performed By: #### I MMUN G #### [facility] [address] [address] [address] Li Nagel DIAGNOSIS: Comment Normal [facility] Comment on above: Result Comment: NEGA TIVE FOR INTRAEPITHELIAL LESION OR MALIGNANCY. Performed at: BA Performed By: #### I MMUN G #### [facility] [address] [place] [address] Dr. Li Nagel HPV Aptima Negative Normal Negative [facility] Comment on above: Result Comment: This nucleic acid amplification test detects fourteen high-risk HPV types (16,18,31,33,35,39,45,51,52,56,58,59,66,68) without differentiation. Performed at: =G Performed By: #### I MMUN G #### [facility] [address] [place] [address] Dr. Li Nagel HPV Genotype Reflex Comment Normal [facility] Comment on above: Result Comment: Crit eria not met, HPV Genotype not performed. Performed at: BA Performed By: #### I MMUN G #### [facility] [address] [address] [address] Li Nagel Methodology: Comment Normal [facility] Comment on above: Result Comment: This liquid based ThinPrep(R) pap test was screened with the use of an image guided system. Performed at: WB Performed By: #### I MMUN G #### [facility] [address] [place] [address] Dr. Li Nagel Note: Comment Normal [facility] Comment on above: Result Comment: The [...] Performed By: #### I MMUN G #### [facility] [address] [address] [address] Li Nagel Performed by: Comment Normal [facility] Comment on above: Result Comment: Gretta Holly, School Physical Therapist (ASCP) Performed at: BA Performed By: #### I MMUN G #### [facility] [address] [address] [address] Li Nagel Specimen adequacy: Comment Normal [facility] Comment on above: Result Comment: Sati sfactory for evaluation. No endocervical component is identified. Performed at: BA Performed By: #### I MMUN G #### [facility] [address] [place] [address] Dr. Li Nagel HEPATITIS PANEL, [facility] HBsAg Screen Negative Normal Negative [facility] Comment on above: Performed By: #### H EPACUT #### [facility] [address] [place] [address] Dr. Li Nagel HCV AB <0.1 Normal 0.0-0.9 [facility] Comment on above: Performed By: #### H EPACUT #### [facility] [address] [place] [address] Dr. Li Nagel Hep A Ab, IgM Negative Normal Negative [facility] Comment on above: Performed By: #### H EPACUT #### [facility] [address] [place] [address] Dr. Li Nagel Hep B Core Ab, IgM Negative Normal Negative [facility] Comment on above: Performed By: #### H EPACUT #### [facility] [address] [place] [address] Dr. Li Nagel Interpretation: Comment Normal [facility] Comment on above: Result Comment: Nega tive Not infected with HCV, unless recent infection is suspected or other evidence exists to indicate HCV infection. Performed By: #### H EPACUT #### [facility] [address] [address] [address] Li Nagel US PELVIS AND TRANSVAGon [...] by: LAURIE CRUZ Date: 2021-12-22 09:50 Normal [facility] US ABD RT UPPER QUADRANTon 0 12-10-2021 [facility] US PELVIS AND TRANSVAGon US PELVIS [...] LAURIE CRUZ Date: 2021-10-28 13:01 Normal [facility] VAGINITIS/VAGINOSIS DNA PROB Kwasi 10-21-2021 Sharif species Negative Normal Negative [facility] Comment on above: Performed By: #### I MMUN G #### [facility] [address] [place] [address] Dr. Li Nagel Gardnerella vaginalis Negative Normal Negative [facility] Comment on above: Performed By: #### I MMUN G #### [facility] [address] [place] [address] Dr. Li Nagel Trichomonas vaginalis Negative Normal Negative [facility] Comment on above: Performed By: #### I MMUN G #### [facility] [address] [place] [address] Dr. Li Nagel CBC AUTO DIFFon 10-20-2021 BASO # 0.0 103/ul Normal 0.0-0.1 [facility] Comment on above: Performed By: #### A LPHPHN #### [facility] [address] [place] [address] Dr. Li Nagel Basophils/100 WBC (Bld) 0.4 % Normal 0.2-2.0 [facility] Comment on above: Performed By: #### A LPHPHN #### [facility] [address] [place] [address] Dr. Li Nagel EO # 0.2 103/ul Normal 0.0-0.7 [facility] Comment on above: Performed By: #### A LPHPHN #### [facility] [address] [place] [address] Dr. Li Nagel Eosinophils/100 WBC (Bld) 2.6 % Normal 0.9-7.0 [facility] Comment on above: Performed By: #### A LPHPHN #### [facility] [address] [place] [address] Dr. Li Nagel Erythrocyte distribution width (RBC) [Ratio] 12.6 % Normal 11.0-15.0 [facility] Comment on above: Performed By: #### A LPHPHN #### [facility] [address] [place] [address] Dr. Li Nagel Hematocrit (Bld) [Volume fraction] 40.0 % Normal 36.0-48.0 [facility] Comment on above: Performed By: #### A LPHPHN #### [facility] [address] [place] [address] Dr. Li Nagel Hemoglobin (Bld) [Mass/Vol] 13.3 g/dL Normal 12.0-16.0 [facility] Comment on above: Performed By: #### A LPHPHN #### [facility] [address] [place] [address] Dr. Li Nagel IG # 0.06 10e3/ul Critically high 0.00-0.03 [facility] Comment on above: Performed By: #### A LPHPHN #### [facility] [address] [place] [address] Dr. Li Nagel IG % 0.9 % Critically high 0.0-0.5 [facility] Comment on above: Performed By: #### A LPHPHN #### [facility] [address] [place] [address] Dr. Li Nagel LYMPH # 2.2 103/ul Normal 1.2-3.8 [facility] Comment on above: Performed By: #### A LPHPHN #### [facility] [address] [place] [address] Dr. Li Nagel Lymphocytes/100 WBC (Bld) 31.0 % Normal 20.5-60.0 [facility] Comment on above: Performed By: #### A LPHPHN #### [facility] [address] [place] [address] Dr. Li Nagel MANUAL DIFF REQ NO Normal [facility] Comment on above: Performed By: #### A LPHPHN #### [facility] [address] [place] [address] Dr. Li Nagel MCH (RBC) [Entitic mass] 31.4 pg Normal 26.7-34.0 [facility] Comment on above: Performed By: #### A LPHPHN #### [facility] [address] [place] [address] Dr. Li Nagel MCHC (RBC) [Mass/Vol] 33.3 g/dL Normal 29.9-35.2 [facility] Comment on above: Performed By: #### A LPHPHN #### [facility] [address] [place] [address] Dr. Li Nagel MCV (RBC) [Entitic vol] 94.3 fL Normal 81.0-99.0 [facility] Comment on above: Performed By: #### A LPHPHN #### [facility] [address] [place] [address] Dr. Li Nagel MONO # 0.5 103/ul Normal 0.3-0.8 [facility] Comment on above: Performed By: #### A LPHPHN #### [facility] [address] [place] [address] Dr. Li Nagel Monocytes/100 WBC (Bld) 6.9 % Normal 1.7-12.0 [facility] Comment on above: Performed By: #### A LPHPHN #### [facility] [address] [place] [address] Dr. Li Nagel NEUT # 4.1 103/ul Normal 1.4-6.5 [facility] Comment on above: Performed By: #### A LPHPHN #### [facility] [address] [place] [address] Dr. Li Nagel Neutrophils/100 WBC (Bld) 58.2 % Normal 43.0-75.0 [facility] Comment on above: Performed By: #### A LPHPHN #### [facility] [address] [place] [address] Dr. Li Nagel Platelet mean volume (Bld) [Entitic vol] 11.0 fL Normal 9.5-13.5 [facility] Comment on above: Performed By: #### A LPHPHN #### [facility] [address] [address] [address] Li Nagel PLT 211 103/ul Normal 150-450 [facility] Comment on above: Performed By: #### A LPHPHN #### [facility] [address] [address] [address] Li Nagel RBC 4.24 106/ul Normal 4.20-5.40 [facility] Comment on above: Performed By: #### A LPHPHN #### [facility] [address] [address] [address] Li Nagel WBC 7.0 103/ul Normal 4.0-11.0 [facility] Comment on above: Performed By: #### A LPHPHN #### [facility] [address] [place] [address] ABD/PELV W CONon [...] DOLORES MOON Date: 2021-10-20 14:53 Normal [facility] OCC BLD IMMUNO SCREENon 09-23 OCCULT BLOOD Negative Normal NEGATIVE [facility] Comment on above: Performed By: #### O BSCRN #### [facility] [address] [place] [address] Dr. Li Nagel PROF 14(COMP METB)on 022 Albumin [Mass/Vol] 3.7 g/dL Normal 3.4-5.0 [facility] Comment on above: Performed By: #### A LPHPHN #### [facility] [address] [place] [address] Dr. Li Nagel Albumin/Globulin [Mass ratio] 1.2 {ratio} Normal [facility] Comment on above: Performed By: #### A LPHPHN #### [facility] [address] [place] [address] Dr. Li Nagel ALP [Catalytic activity/Vol] 86 U/L Normal 46-116 [facility] Comment on above: Performed By: #### A LPHPHN #### [facility] [address] [place] [address] Dr. Li Nagel ALT [Catalytic activity/Vol] 109 U/L Critically high 14-59 [facility] Comment on above: Performed By: #### A LPHPHN #### [facility] [address] [place] [address] Dr. Li Naegl Anion gap [Moles/Vol] 7.8 mmol/L Normal [facility] Comment on above: Performed By: #### A LPHPHN #### [facility] [address] [place] [address] Dr. Li Nagel AST [Catalytic activity/Vol] 57 U/L Critically high 15-37 [facility] Comment on above: Performed By: #### A LPHPHN #### [facility] [address] [place] [address] Dr. Li Nagel Bilirubin [Mass/Vol] 0.4 mg/dL Normal 0.2-1.0 [facility] Comment on above: Performed By: #### A LPHPHN #### [facility] [address] [place] [address] Dr. Li Nagel Calcium [Mass/Vol] 8.9 mg/dL Normal 8.5-10.1 [facility] Comment on above: Performed By: #### A LPHPHN #### [facility] [address] [place] [address] Dr. Li Nagel Chloride [Moles/Vol] 104 mmol/L Normal 98-107 [facility] Comment on above: Performed By: #### A LPHPHN #### [facility] [address] [place] [address] Dr. Li Nagel CO2 [Moles/Vol] 27.7 mmol/L Normal 21.0-32.0 [facility] Comment on above: Performed By: #### A LPHPHN #### [facility] [address] [place] [address] Dr. Li Nagel Creatinine [Mass/Vol] 0.78 mg/dL Normal 0.55-1.02 [facility] Comment on above: Performed By: #### A LPHPHN #### [facility] [address] [place] [address] Dr. Li Nagel EGFR-AF JORDANIAN >60 Normal >=60 [facility] Comment on above: Performed By: #### A LPHPHN #### [facility] [address] [place] [address] Dr. Li Nagel EGFR-NON AF JORDANIAN >60 Normal >=60 [facility] Comment on above: Performed By: #### A LPHPHN #### [facility] [address] [place] [address] Dr. Li Nagel Globulin (S) [Mass/Vol] 3.2 g/dL Normal [facility] Comment on above: Performed By: #### A LPHPHN #### [facility] [address] [place] [address] Dr. Li Nagel Glucose [Mass/Vol] 104 mg/dL Normal 74-106 [facility] Comment on above: Performed By: #### A LPHPHN #### [facility] [address] [place] [address] Dr. Li Nagel Potassium [Moles/Vol] 3.5 mmol/L Normal 3.5-5.1 [facility] Comment on above: Performed By: #### A LPHPHN #### [facility] [address] [place] [address] Dr. Li Nagel Protein [Mass/Vol] 6.9 g/dL Normal 6.4-8.2 [facility] Comment on above: Performed By: #### A LPHPHN #### [facility] [address] [place] [address] Dr. Li Nagel Sodium [Moles/Vol] 136 mmol/L Normal 136-145 [facility] Comment on above: Performed By: #### A LPHPHN #### [facility] [address] [place] [address] Dr. Li Nagel Urea nitrogen [Mass/Vol] 10.0 mg/dL Normal 7.0-18.0 [facility] Comment on above: Performed By: #### A LPHPHN #### [facility] [address] [place] [address] Dr. Li Nagel Urea nitrogen/Creatinine [Mass ratio] 12.8 mg/mg Normal [facility] Comment on above: Performed By: #### A LPHPHN #### [facility] [address] [place] [address] Dr. Li Nagel XR LSPINE MIN 4 [...] by: LAURIE CRUZ Date: 2021-09-06 15:05 Normal [facility] NM HEPATOBILIARY SCAN W EFon 08-27-2021 [...] JACKSON ADKINS Date: 2021-08-27 16:05 Normal [facility] 08-20-2021 Albumin [Mass/Vol] 5.0 g/dL Normal 3.6-5.1 [facility] Public[facility] Writer Comment on above: Performed By: #### C MP #### [facility] [address], [place] [id number] Albumin/Globulin [Mass ratio] 2.1 {ratio} Normal 1.0-2.5 [facility] Comment on above: Performed By: #### C MP #### [facility] [address], [place] [id number] ALP [Catalytic activity/Vol] 110 U/L Normal 35-119 [facility] Comment on above: Performed By: #### C MP #### [facility] [address], [place] [id number] ALT [Catalytic activity/Vol] 71 U/L High 6-33 [facility] Comment on above: Result Comment: 03/24 Female reference range changed. Performed By: #### C MP #### [facility] [address], [place] [id number] Anion gap [Moles/Vol] 17 mmol/L Normal 12-20 [facility] Specialist Comment on above: Result Comment: Effe ctive 04/29/2019 reference range changed. Performed By: #### C MP #### [facility] [address], [place] [id number] AST [Catalytic activity/Vol] 69 U/L High 9-34 [facility] Specialist Comment on above: Performed By: #### C MP #### [facility] [address], [place] [id number] BUN/CREA 11 Ratio Normal 6-22 [facility] Comment on above: Performed By: #### C MP #### [facility] [address], [place] [id number] Calcium [Mass/Vol] 9.8 mg/dL Normal 8.6-10.2 [facility] Specialist Comment on above: Performed By: #### C MP #### [facility] [address], [place] [id number] Chloride [Moles/Vol] 99 mmol/L Normal 98-107 [facility] Comment on above: Performed By: #### C MP #### [facility] [address], [place] [id number] CO2 [Moles/Vol] 25 mmol/L Normal 20-31 [facility] Comment on above: Performed By: #### C MP #### [facility] [address], [place] [id number] Creatinine [Mass/Vol] 0.9 mg/dL Normal 0.6-1.4 [facility] Comment on above: Performed By: #### C MP #### [facility] [address], [place] [id number] eGFRAA 94 mL/min/1.73m2 Normal >60 [facility] Specialist Comment on above: Performed By: #### C MP #### [facility] [address], [place] [id number] eGFRNAA 78 mL/min/1.73m2 Normal >60 [facility] Specialist Comment on above: Performed By: #### C MP #### [facility] [address], [place] [id number] Globulin (S) [Mass/Vol] 2.4 g/dL Normal 1.9-3.7 [facility] Specialist Comment on above: Performed By: #### C MP #### [facility] [address], [place] [id number] Glucose [Mass/Vol] 100 mg/dL High 65-99 [facility] Specialist Comment on above: Result Comment: For FASTING Glucose --- ADA reference ranges: Normal 65-99 mg/dl Prediabetes 100-125 Diabetes >/= 126 Performed By: #### C MP #### [facility] [address], [place] [id number] Potassium [Moles/Vol] 3.8 mmol/L Normal 3.5-5.5 [facility] Comment on above: Performed By: #### C MP #### [facility] [address], [place] [id number] Protein [Mass/Vol] 7.4 g/dL Normal 6.1-8.1 [facility] Comment on above: Performed By: #### C MP #### [facility] [address], [place] [id number] Sodium [Moles/Vol] 137 mmol/L Normal 135-146 [facility] Comment on above: Performed By: #### C MP #### [facility] [address], [place] [id number] TBIL <0.3 Normal [facility] Comment on above: Performed By: #### C MP #### [facility] [address], [place] [id number] Urea nitrogen [Mass/Vol] 10 mg/dL Normal 7-25 [facility] Comment on above: Performed By: #### C MP #### [facility] [address], [place] [id number] US SINGLE QUAD RT UPPERon US SINGLE [...] JACKSON ADKINS Date: 2021-08-16 08:19 Normal [facility] Complete Blood Count with Au to Diffon 08-06-2021 Basophils (Bld) [#/Vol] 0.03 10*3/uL Normal 0.00-0.20 [facility] Publicity Writer Comment on above: Performed By: #### C MP, CBCAD, LIPD #### [facility] [address], [place] [id number] Basophils/100 WBC (Bld) 0.4 % Normal [facility] Publicity Writer Comment on above: Performed By: #### C MP, CBCAD, LIPD #### [facility] [address], [place] [id number] Eosinophils (Bld) [#/Vol] 0.11 10*3/uL Normal 0.02-0.50 [facility] Publicity Writer Comment on above: Performed By: #### C MP, CBCAD, LIPD #### [facility] [address], [place] [id number] Eosinophils/100 WBC (Bld) 1.4 % Normal [facility] Publicity Writer Comment on above: Performed By: #### C MP, CBCAD, LIPD #### [facility] [address], [place] [id number] Erythrocyte distribution width (RBC) [Ratio] 12.6 % Normal 11.0-15.0 [facility] Specialist Comment on above: Performed By: #### C MP, CBCAD, LIPD #### [facility] [address], [place] [id number] Hematocrit (Bld) [Volume fraction] 44.2 % Normal 35.0-47.0 [facility] Publicity Writer Comment on above: Performed By: #### C MP, CBCAD, LIPD #### [facility] [address], [place] [id number] Hemoglobin (Bld) [Mass/Vol] 14.8 g/dL Normal 11.6-15.5 [facility] Comment on above: Performed By: #### C MP, CBCAD, LIPD #### [facility] [address], [place] [id number] Lymphocytes (Bld) [#/Vol] 2.2 10*3/uL Normal 0.9-3.9 [facility] Comment on above: Performed By: #### C MP, CBCAD, LIPD #### [facility] [address], [place] [id number] Lymphocytes/100 WBC (Bld) 28.1 % Normal [facility] Comment on above: Performed By: #### C MP, CBCAD, LIPD #### [facility] [address], [place] [id number] MCH (RBC) [Entitic mass] 31.2 pg Normal 27.0-33.0 [facility] Comment on above: Performed By: #### C MP, CBCAD, LIPD #### [facility] [address], [place] [id number] MCHC (RBC) [Mass/Vol] 33.5 g/dL Normal 32.0-36.0 [facility] Comment on above: Performed By: #### C MP, CBCAD, LIPD #### [facility] [address], [place] [id number] MCV (RBC) [Entitic vol] 93 fL Normal 80-100 [facility] Comment on above: Performed By: #### C MP, CBCAD, LIPD #### [facility] [address], [place] [id number] Monocytes (Bld) [#/Vol] 0.4 10*3/uL Normal 0.2-0.9 [facility] Comment on above: Performed By: #### C MP, CBCAD, LIPD #### [facility] [address], [place] [id number] Monocytes/100 WBC (Bld) 4.8 % Normal [facility] Specialist Comment on above: Performed By: #### C MP, CBCAD, LIPD #### [facility] [address], [place] [id number] Neutrophils (Bld) [#/Vol] 5.1 10*3/uL Normal 1.5-7.8 [facility] Specialist Comment on above: Performed By: #### C MP, CBCAD, LIPD #### [facility] [address], [place] [id number] Neutrophils/100 WBC (Bld) 64.3 % Normal [facility] Comment on above: Performed By: #### C MP, CBCAD, LIPD #### [facility] [address], [place] [id number] Platelet mean volume (Bld) [Entitic vol] 11.00 fL Normal 7.50-12.50 [facility] Comment on above: Performed By: #### C MP, CBCAD, LIPD #### [facility] [address], [place] [id number] Platelets (Bld) [#/Vol] 296 10*3/uL Normal 140-400 [facility] Specialist Comment on above: Performed By: #### C MP, CBCAD, LIPD #### [facility] [address], [place] [id number] RBC (Bld) [#/Vol] 4.74 10*6/uL Normal 3.90-5.20 [facility] Publicity Writer Comment on above: Performed By: #### C MP, CBCAD, LIPD #### [facility] [address], [place] [id number] RDW-SD 43.4 fL Normal 37.0-50.0 [facility] Specialist Comment on above: Performed By: #### C MP, CBCAD, LIPD #### [facility] [address], [place] [id number] WBC (Bld) [#/Vol] 8.0 10*3/uL Normal 3.8-11.0 [facility]ity [facility] Comment on above: Performed By: #### C MP, CBCAD, LIPD #### [facility] [address], [place] [id number] Comprehensive Metabolic Pane yair 08-06-2021 Albumin [Mass/Vol] 5.2 g/dL High 3.6-5.1 [facility] Publicity Writer Comment on above: Performed By: #### C MP, CBCAD, LIPD #### [facility] [address], [place] [id number] Albumin/Globulin [Mass ratio] 2.1 {ratio} Normal 1.0-2.5 [facility] Publicity Writer Comment on above: Performed By: #### C MP, CBCAD, LIPD #### [facility] [address], [place] [id number] ALP [Catalytic activity/Vol] 115 U/L Normal 35-119 [facility] Publicity Writer Comment on above: Performed By: #### C MP, CBCAD, LIPD #### [facility] [address], [place] [id number] ALT [Catalytic activity/Vol] 101 U/L High 6-33 [facility] Specialist Comment on above: Result Comment: 03/24 Female reference range changed. Performed By: #### C MP, CBCAD, LIPD #### [facility] [address], [place] [id number] Anion gap [Moles/Vol] 20 mmol/L Normal 12-20 [facility] Specialist Comment on above: Result Comment: Effe ctive 04/29/2019 reference range changed. Performed By: #### C MP, CBCAD, LIPD #### [facility] [address], [place] [id number] AST [Catalytic activity/Vol] 96 U/L High 9-34 [facility] Specialist Comment on above: Performed By: #### C MP, CBCAD, LIPD #### [facility] [address], [place] [id number] BUN/CREA 9 Ratio Normal 6-22 [facility] Publicity Writer Comment on above: Performed By: #### C MP, CBCAD, LIPD #### [facility] [address], [place] [id number] Calcium [Mass/Vol] 9.9 mg/dL Normal 8.6-10.2 [facility] Publicity Writer Comment on above: Performed By: #### C MP, CBCAD, LIPD #### [facility] [address], [place] [id number] Chloride [Moles/Vol] 106 mmol/L Normal 98-107 [facility] Comment on above: Performed By: #### C NORBERTO, CBCAD, LIPD #### [facility] [address], [place] [id number] CO2 [Moles/Vol] 21 mmol/L Normal 20-31 [facility] Comment on above: Performed By: #### C MP, CBCAD, LIPD #### [facility] [address], [place] [id number] Creatinine [Mass/Vol] 0.9 mg/dL Normal 0.6-1.4 [facility] Comment on above: Performed By: #### C NORBERTO, CBCAD, LIPD #### [facility] [address], [place] [id number] eGFRAA 90 mL/min/1.73m2 Normal >60 [facility] Specialist Comment on above: Performed By: #### C NORBERTO, CBCAD, LIPD #### [facility] [address], [place] [id number] eGFRNAA 74 mL/min/1.73m2 Normal >60 [facility] Comment on above: Performed By: #### C NORBERTO, CBCAD, LIPD #### [facility] [address], [place] [id number] Globulin (S) [Mass/Vol] 2.5 g/dL Normal 1.9-3.7 [facility] Specialist Comment on above: Performed By: #### C MP, CBCAD, LIPD #### [facility] [address], [place] [id number] Glucose [Mass/Vol] 127 mg/dL High 65-99 [facility] Comment on above: Result Comment: For FASTING Glucose --- ADA reference ranges: Normal 65-99 mg/dl Prediabetes 100-125 Diabetes >/= 126 Performed By: #### C MP, CBCAD, LIPD #### [facility] [address], [place] [id number] Potassium [Moles/Vol] 4.2 mmol/L Normal 3.5-5.5 [facility] Comment on above: Performed By: #### C MP, CBCAD, LIPD #### [facility] [address], [place] [id number] Protein [Mass/Vol] 7.7 g/dL Normal 6.1-8.1 [facility] Comment on above: Performed By: #### C MP, CBCAD, LIPD #### [facility] [address], [place] [id number] Sodium [Moles/Vol] 143 mmol/L Normal 135-146 [facility] Specialist Comment on above: Performed By: #### C MP, CBCAD, LIPD #### [facility] [address], [place] [id number] TBIL <0.3 Normal [facility] Specialist Comment on above: Performed By: #### C MP, CBCAD, LIPD #### [facility] [address], [place] [id number] Urea nitrogen [Mass/Vol] 8 mg/dL Normal 7-25 [facility] Specialist Comment on above: Performed By: #### C MP, CBCAD, LIPD #### [facility] [address], [place] [id number] Hemoglobin A1Con 08-06-2021 EAG 99.67 Normal [facility] Comment on above: Performed By: #### A 1C #### [facility] [address], [place] [id number] HbA1c (Bld) [Mass fraction] 5.1 % Normal 4.0-6.0 [facility] Specialist Comment on above: Performed By: #### A 1C #### [facility] [address], [place] [id number] Lipid Panelon 08-06-2021 Cholesterol [Mass/Vol] 190 mg/dL Normal 125-200 [facility] on above: Result Comment: Low risk < 200mg/dL Borderline risk 201-239 mg/dl High risk > or equal to 240 Performed By: #### C MP, CBCAD, LIPD #### [facility] [address], [place] [id number] Cholesterol in HDL [Mass/Vol] 64 mg/dL Normal >40 [facility] Specialist Comment on above: Result Comment: High Cardiovascular Risk HDL <40 mg/dL Low Cardiovascular Risk HDL > or equal to 60 mg/dl Performed By: #### C MP, CBCAD, LIPD #### [facility] [address], [place] [id number] Cholesterol in LDL [Mass/Vol] 107 mg/dL Normal [facility] Publicity Writer Comment on above: Result Comment: LDL ATP III CLASSIFICATION LDL less than 100 mg/dl Optimal LDL 100-129 mg/dl Near or above optimal LDL 130-159 Borderline high LDL 160-189 High LDL greater than 189 mg/dl Very High Performed By: #### C MP, CBCAD, LIPD #### [facility] [address], [place] [id number] Cholesterol in VLDL [Mass/Vol] 19 mg/dL Normal [facility] Publicity Writer Comment on above: Performed By: #### C MP, CBCAD, LIPD #### [facility] [address], [place] [id number] Cholesterol.total/Chol esterol in HDL [Mass ratio] 3 {ratio} Normal [facility] Publicity Writer Comment on above: Performed By: #### C MP, CBCAD, LIPD #### [facility] [address], [place] [id number] Triglyceride [Mass/Vol] 95 mg/dL Normal 30-150 [facility] Publicity Writer Comment on above: Result Comment: TRIG ATPIII CLASSIFICATIONS TRIG less than 150 mg/dl Normal TRIG 150-199 mg/dl Borderline High TRIG 200-500 mg/dl High TRIG greather than 500 mg/dl Very High Performed By: #### C MP, CBCAD, LIPD #### [facility] [address], [place] [id number] Q - CULTURE,URINE,ROUTINEon 06-04-2021 CULTURE, URINE, ROUTINE SEE NOTE Normal [facility] Publicity Writer Comment on above: Order Comment: [facility] performed at: [facility] [employer] [facility], [address], [address] [place] [address], [id number], Machine Maintenance Supervisor: Tim Dotson MD [facility] Collection Date/Time: [facility] Results Received Date/Time: [facility] Reported Date/Time: Result Comment: CULT URE, URINE, ROUTINE Micro Number: [id number] Test Status: Final Specimen Source: Not given Specimen Quality: Adequate Result: Mixed genital marie isolated. These superficial bacteria are not indicative of a urinary tract infection. No further organism identification is warranted on this specimen. If clinically indicated, recollect clean-catch, mid-stream urine and transfer immediately to Urine Culture Transport Tube. Performed By: #### [id number] #### [facility] [address] [place] [id number] MRI LUMBAR SPINE WO CONTRAST on 11-06-2018 [...] Naren Lagos MD 11/06/18 Final result Normal [facility] Vital Signs Date Time Vital Sign Value Performing Clinician Facility 10-10-2024 12:31-0400 Body height 157.5 cm Shannon Darden PATIENT ACCESS COORDINATOR Work Phone: [facility] 10-10-2024 12:31-0400 Body mass index (BMI) [Ratio] 35.3 kg/m2 Shannon Darden PATIENT ACCESS COORDINATOR Work Phone: [facility] 10-10-2024 12:31-0400 Body weight 87.54 kg Shannon Darden PATIENT ACCESS COORDINATOR Work Phone: [facility] 10-09-2024 13:00-0400 Body mass index (BMI) [Ratio] 33.83 kg/m2 Mario Harper [employer]UCTION PLANT SUPERVISOR.SWITCHBOARD TROUBLESHOOTER Work Phone: [facility] 10-09-2024 13:00-0400 Body weight 86.64 kg Mario Harper REDUCTION PLANT SUPERVISOR.SWITCHBOARD TROUBLESHOOTER Work Phone: [facility] 10-09-2024 13:00-0400 Diastolic blood pressure 76 mm[Hg] Mario Harper REDUCTION PLANT SUPERVISOR.SWITCHBOARD TROUBLESHOOTER Work Phone: [facility] 10-09-2024 13:00-0400 Heart rate 106 /min Mario Harper [employer]UCTION PLANT SUPERVISOR.SWITCHBOARD TROUBLESHOOTER Work Phone: [facility] 10-09-2024 13:00-0400 SaO2% (BldA) [Mass fraction] 99 % Mario Harper REDUCTION PLANT SUPERVISOR.SWITCHBOARD TROUBLESHOOTER Work Phone: [facility] 10-09-2024 13:00-0400 Systolic blood pressure 112 mm[Hg] Mario Harper REDUCTION PLANT SUPERVISOR.SWITCHBOARD TROUBLESHOOTER Work Phone: [facility] 10-08-2024 11:42-0400 Body height 157.5 cm Deena Lyn PATIENT ACCESS COORDINATOR Work Phone: [facility] 10-08-2024 11:42-0400 Body mass index (BMI) [Ratio] 34.75 kg/m2 Deena Lyn PATIENT ACCESS COORDINATOR Work Phone: [facility] 10-08-2024 11:42-0400 Body weight 86.18 kg Deena Lyn PATIENT ACCESS COORDINATOR Work Phone: [facility] 10-08-2024 11:42-0400 Diastolic blood pressure 88 mm[Hg] Deena Lyn PATIENT ACCESS COORDINATOR Work Phone: [facility] 10-08-2024 11:42-0400 Heart rate 110 /min Deena Lyn PATIENT ACCESS COORDINATOR Work Phone: [facility] 10-08-2024 11:42-0400 Respiratory rate 16 /min Deena Riki PATIENT ACCESS COORDINATOR Work Phone: [facility] 10-08-2024 11:42-0400 SaO2% (BldA) [Mass fraction] 99 % Deena Southlake PATIENT ACCESS COORDINATOR Work Phone: [facility] 10-08-2024 11:42-0400 Systolic blood pressure 134 mm[Hg] Deena Riki PATIENT ACCESS COORDINATOR Work Phone: [facility] 09-25-2024 10:25-0400 Body height 157.5 cm Deena Southlake PATIENT ACCESS COORDINATOR Work Phone: [facility] 09-25-2024 10:25-0400 Body mass index (BMI) [Ratio] 35.74 kg/m2 Deena Southlake PATIENT ACCESS COORDINATOR Work Phone: [facility] 09-25-2024 10:25-0400 Body weight 88.63 kg Deena Southlake PATIENT ACCESS COORDINATOR Work Phone: [facility] 09-25-2024 10:25-0400 Diastolic blood pressure 72 mm[Hg] Deena Southlake PATIENT ACCESS COORDINATOR Work Phone: [facility] 09-25-2024 10:25-0400 Heart rate 94 /min Deena Southlake PATIENT ACCESS COORDINATOR Work Phone: [facility] 09-25-2024 10:25-0400 Respiratory rate 17 /min Deena Southlake PATIENT ACCESS COORDINATOR Work Phone: [facility] 09-25-2024 10:25-0400 SaO2% (BldA) [Mass fraction] 97 % Deena Riki PATIENT ACCESS COORDINATOR Work Phone: [facility] 09-25-2024 10:25-0400 Systolic blood pressure 110 mm[Hg] Deena Riki PATIENT ACCESS COORDINATOR Work Phone: [facility] 09-17-2024 11:11-0400 Body height 157.5 cm Sandy Armenta PA Work Phone: [facility] 09-17-2024 11:11-0400 Body mass index (BMI) [Ratio] 35.26 kg/m2 Sandy Armenta PA Work Phone: [facility] 09-17-2024 11:11-0400 Body weight 87.45 kg Sandy Hemmer PA Work Phone: [facility] 09-17-2024 11:11-0400 Diastolic blood pressure 76 mm[Hg] Sandy Hemmer PA Work Phone: [facility] 09-17-2024 11:11-0400 Heart rate 75 /min Sandy Hemmer PA Work Phone: [facility] 09-17-2024 11:11-0400 Respiratory rate 16 /min Sandy Hemmer PA Work Phone: [facility] 09-17-2024 11:11-0400 SaO2% (BldA) [Mass fraction] 99 % Sandy Hemmer PA Work Phone: [facility] 09-17-2024 11:11-0400 Systolic blood pressure 112 mm[Hg] Sandy Hemmer PA Work Phone: [facility] 09-10-2024 13:37-0400 Body height 157.5 cm Giovani Hagen MD Work Phone: [facility] 09-10-2024 13:37-0400 Body mass index (BMI) [Ratio] 34.93 kg/m2 Giovani Hagen MD Work Phone: [facility] 09-10-2024 13:37-0400 Body weight 86.64 kg Giovani Hagen MD Work Phone: [facility] 09-10-2024 13:37-0400 Diastolic blood pressure 72 mm[Hg] Giovani Hagen MD Work Phone: [facility] 09-10-2024 13:37-0400 Heart rate 88 /min Giovani Hagen MD Work Phone: [facility] 09-10-2024 13:37-0400 SaO2% (BldA) [Mass fraction] 98 % Giovani Hagen MD Work Phone: [facility] 09-10-2024 13:37-0400 Systolic blood pressure 118 mm[Hg] Giovani Hagen MD Work Phone: [facility] 09-04-2024 16:21-0400 Body height 157.5 cm Milton Fraire DPM FACFAS Work Phone: [facility] 09-04-2024 16:21-0400 Body mass index (BMI) [Ratio] 33.65 kg/m2 Milton Fraire DPM FACFAS Work Phone: [facility] 09-04-2024 16:21-0400 Body weight 83.46 kg Milton Eloina DPM FACFAS Work Phone: [facility] 09-04-2024 16:21-0400 Diastolic blood pressure 80 mm[Hg] Milton Fraire DPM FACFAS Work Phone: [facility] 09-04-2024 16:21-0400 Heart rate 87 /min Milton Fraire DPM FACFAS Work Phone: [facility] 09-04-2024 16:21-0400 Systolic blood pressure 131 mm[Hg] Milton Fraire DPM FACFAS Work Phone: [facility] 09-02-2024 15:13-0400 Body height 157.5 cm Giovani Hagen MD Work Phone: [facility] 09-02-2024 15:13-0400 Body mass index (BMI) [Ratio] 33.65 kg/m2 Giovani Hagen MD Work Phone: [facility] 09-02-2024 15:13-0400 Body weight 83.46 kg Giovani Hagen MD Work Phone: [facility] 09-02-2024 15:13-0400 Diastolic blood pressure 82 mm[Hg] Giovani Hagen MD Work Phone: [facility] 09-02-2024 15:13-0400 Heart rate 113 /min Giovani Hagen MD Work Phone: [facility] 09-02-2024 15:13-0400 SaO2% (BldA) [Mass fraction] 97 % Giovani Hagen MD Work Phone: [facility] 09-02-2024 15:13-0400 Systolic blood pressure 132 mm[Hg] Giovani Hagen MD Work Phone: [facility] 08-21-2024 16:14-0400 Body height 157.5 cm Milton Eloina DPM FACFAS Work Phone: [facility] 08-21-2024 16:14-0400 Body mass index (BMI) [Ratio] 34.2 kg/m2 Milton Fraire DPM FACFAS Work Phone: [facility] 08-21-2024 16:14-0400 Body weight 84.82 kg Milton Fraire DPM FACFAS Work Phone: [facility] 08-21-2024 16:14-0400 Diastolic blood pressure 80 mm[Hg] Milton Fraire DPM FACFAS Work Phone: [facility] 08-21-2024 16:14-0400 Heart rate 80 /min Milton Fraire DPM FACFAS Work Phone: [facility] 08-21-2024 16:14-0400 Systolic blood pressure 127 mm[Hg] Milton Fraire DPM FACFAS Work Phone: [facility] 08-19-2024 08:48-0400 Body weight 77.11 kg Giovani Hagen MD Work Phone: [facility] 08-19-2024 07:30-0400 Body temperature 98.1 [degF] Giovani Hagen MD Work Phone: [facility] 08-19-2024 07:30-0400 Diastolic blood pressure 75 mm[Hg] Giovani Hagen MD Work Phone: [facility] 08-19-2024 07:30-0400 Heart rate 85 /min Giovani Hagen MD Work Phone: [facility] 08-19-2024 07:30-0400 Respiratory rate 18 /min Giovani Hagen MD Work Phone: [facility] 08-19-2024 07:30-0400 SaO2% (BldA) [Mass fraction] 97 % Giovani Hagen MD Work Phone: [facility] 08-19-2024 07:30-0400 Systolic blood pressure 114 mm[Hg] Giovani Hagen MD Work Phone: [facility] 08-16-2024 17:29-0400 Body height 157.48 cm Giovani Hagen MD Work Phone: [facility] 08-14-2024 16:39-0400 Body height 157.5 cm Milton Fraire DPM FACFAS Work Phone: [facility] 08-14-2024 16:39-0400 Body mass index (BMI) [Ratio] 34.2 kg/m2 Milton Corneliusce DPM FACFAS Work Phone: [facility] 08-14-2024 16:39-0400 Body weight 84.82 kg Milton Corneliusce DPM FACFAS Work Phone: [facility] 08-14-2024 16:39-0400 Diastolic blood pressure 80 mm[Hg] Milton Corneliusce DPM FACFAS Work Phone: [facility] 08-14-2024 16:39-0400 Heart rate 82 /min Milton Corneliusce DPM FACFAS Work Phone: [facility] 08-14-2024 16:39-0400 Systolic blood pressure 125 mm[Hg] Milton Corneliusce DPM FACFAS Work Phone: [facility] 08-13-2024 14:57-0400 Body height 160 cm Solo Mora MD Work Phone: [facility] 08-13-2024 14:57-0400 Body mass index (BMI) [Ratio] 31.89 kg/m2 Solo Mora MD Work Phone: [facility] 08-13-2024 14:57-0400 Body weight 81.65 kg Solo Mora MD Work Phone: [facility] 08-13-2024 14:57-0400 Diastolic blood pressure 96 mm[Hg] Solo Mora MD Work Phone: [facility] 08-13-2024 14:57-0400 Heart rate 92 /min Solo Mora MD Work Phone: [facility] 08-13-2024 14:57-0400 Systolic blood pressure 140 mm[Hg] Solo Mora MD Work Phone: [facility] 08-01-2024 14:31-0400 Body height 157.5 cm Giovani Hagen MD Work Phone: [facility] 08-01-2024 14:31-0400 Body mass index (BMI) [Ratio] 34.2 kg/m2 Giovani Hagen MD Work Phone: [facility] 08-01-2024 14:31-0400 Body weight 84.82 kg Giovani Hagen MD Work Phone: [facility] 08-01-2024 14:31-0400 Diastolic blood pressure 82 mm[Hg] Giovani Hagen MD Work Phone: [facility] 08-01-2024 14:31-0400 Heart rate 85 /min Giovani Hagen MD Work Phone: [facility] 08-01-2024 14:31-0400 SaO2% (BldA) [Mass fraction] 100 % Giovani Hagen MD Work Phone: [facility] 08-01-2024 14:31-0400 Systolic blood pressure 124 mm[Hg] Giovani Hagen MD Work Phone: [facility] 07-24-2024 16:04-0400 Body height 157.5 cm Milton Fraire DPM FACFAS Work Phone: [facility] 07-24-2024 16:04-0400 Body mass index (BMI) [Ratio] 34.75 kg/m2 Milton Fraire DPM FACFAS Work Phone: [facility] 07-24-2024 16:04-0400 Body weight 86.18 kg Milton Fraire DPM FACFAS Work Phone: [facility] 07-24-2024 16:04-0400 Diastolic blood pressure 88 mm[Hg] Milton Fraire DPM FACFAS Work Phone: [facility] 07-24-2024 16:04-0400 Heart rate 109 /min Milton Fraire DPM FACFAS Work Phone: [facility] 07-24-2024 16:04-0400 Systolic blood pressure 132 mm[Hg] Milton Fraire DPM FACFAS Work Phone: [facility] 07-10-2024 09:45-0400 Body height 158.8 cm Javy Boudreaux MD Work Phone: [facility] 07-10-2024 09:45-0400 Body mass index (BMI) [Ratio] 34.2 kg/m2 Javy Boudreaux MD Work Phone: [facility] 07-10-2024 09:45-0400 Body weight 86.18 kg Javy Boudreaux MD Work Phone: [facility] 07-10-2024 09:45-0400 Diastolic blood pressure 90 mm[Hg] Javy Boudreaux MD Work Phone: [facility] 07-10-2024 09:45-0400 Heart rate 108 /min Javy Boudreaux MD Work Phone: [facility] 07-10-2024 09:45-0400 Systolic blood pressure 131 mm[Hg] Javy Boudreaux MD Work Phone: [facility] 07-04-2024 15:30-0400 Body height 157.5 cm Giovani Hagen MD Work Phone: [facility] 07-04-2024 15:30-0400 Body mass index (BMI) [Ratio] 34.75 kg/m2 Giovani Hagen MD Work Phone: [facility] 07-04-2024 15:30-0400 Body weight 86.18 kg Giovani Hagen MD Work Phone: [facility] 07-04-2024 15:30-0400 Diastolic blood pressure 88 mm[Hg] Giovani Hagen MD Work Phone: [facility] 07-04-2024 15:30-0400 Heart rate 109 /min Giovani Hagen MD Work Phone: [facility] 07-04-2024 15:30-0400 SaO2% (BldA) [Mass fraction] 98 % Giovani Hagen MD Work Phone: [facility] 07-04-2024 15:30-0400 Systolic blood pressure 132 mm[Hg] Giovani Hagen MD Work Phone: [facility] 07-03-2024 14:55-0400 Body height 157.5 cm Milton Dolce DPM FACFAS Work Phone: [facility] 07-03-2024 14:55-0400 Body mass index (BMI) [Ratio] 34.93 kg/m2 Milton Dolce DPM FACFAS Work Phone: [facility] 07-03-2024 14:55-0400 Body weight 86.64 kg Milton Dolce DPM FACFAS Work Phone: [facility] 07-03-2024 14:55-0400 Diastolic blood pressure 79 mm[Hg] Milton Dolce DPM FACFAS Work Phone: [facility] 07-03-2024 14:55-0400 Heart rate 88 /min Milton Dolce DPM FACFAS Work Phone: [facility] 07-03-2024 14:55-0400 Systolic blood pressure 132 mm[Hg] Milton Dolce DPM FACFAS Work Phone: [facility] 06-26-2024 15:00-0500 Body height 157.5 cm Milton Dolce DPM FACFAS Work Phone: [facility] 06-26-2024 15:00-0500 Body mass index (BMI) [Ratio] 34.93 kg/m2 Milton Dolce DPM FACFAS Work Phone: [facility] 06-26-2024 15:00-0500 Body weight 86.64 kg Milton Dolce DPM FACFAS Work Phone: [facility] 06-26-2024 15:00-0500 Diastolic blood pressure 79 mm[Hg] Milton Adryanbran DPM FACFAS Work Phone: [facility] 06-26-2024 15:00-0500 Heart rate 88 /min Milton Adryanbran DPM FACFAS Work Phone: [facility] 06-26-2024 15:00-0500 Systolic blood pressure 132 mm[Hg] Milton Fraire DPM FACFAS Work Phone: [facility] 06-25-2024 14:38-0500 Body mass index (BMI) [Ratio] 34.9 kg/m2 Darwin Matty DO Work Phone: [facility] 06-25-2024 14:38-0500 Body weight 86.55 kg Darwin Matty DO Work Phone: [facility] 06-25-2024 14:38-0500 Diastolic blood pressure 78 mm[Hg] Darwin Matty DO Work Phone: [facility] 06-25-2024 14:38-0500 Systolic blood pressure 130 mm[Hg] Darwin Matty DO Work Phone: [facility] 06-19-2024 14:37-0500 Body height 157.5 cm Prateek Pedraza DPM Work Phone: [facility] 06-19-2024 14:37-0500 Body mass index (BMI) [Ratio] 35.85 kg/m2 Prateek Pedraza DPM Work Phone: [facility] 06-19-2024 14:37-0500 Body weight 88.91 kg Prateek Pedraza DPM Work Phone: [facility] 06-19-2024 14:37-0500 Respiratory rate 18 /min Prateek Pedraza DPM Work Phone: [facility] 06-06-2024 15:42-0500 Body height 157.5 cm Giovani Hagen MD Work Phone: [facility] 06-06-2024 15:42-0500 Body mass index (BMI) [Ratio] 35.85 kg/m2 Giovani Hagen MD Work Phone: [facility] 06-06-2024 15:42-0500 Body weight 88.91 kg Giovani Hagen MD Work Phone: [facility] 06-06-2024 15:42-0500 Diastolic blood pressure 82 mm[Hg] Giovani Hagen MD Work Phone: [facility] 06-06-2024 15:42-0500 Heart rate 96 /min Giovani Hagen MD Work Phone: [facility] 06-06-2024 15:42-0500 SaO2% (BldA) [Mass fraction] 99 % Giovani Hagen MD Work Phone: [facility] 06-06-2024 15:42-0500 Systolic blood pressure 118 mm[Hg] Giovani Hagen MD Work Phone: [facility] 05-29-2024 13:49-0500 Body mass index (BMI) [Ratio] 35.81 kg/m2 Ayleen Krishnamurthy PA Work Phone: [facility] 05-29-2024 13:49-0500 Body weight 88.81 kg Ayleen Krishnamurthy PA Work Phone: [facility] 05-29-2024 13:49-0500 Diastolic blood pressure 76 mm[Hg] Ayleen Krishnamurthy PA Work Phone: [facility] 05-29-2024 13:49-0500 Systolic blood pressure 122 mm[Hg] Ayleen Krishnamurthy PA Work Phone: [facility] 05-22-2024 14:30-0500 Diastolic blood pressure 92 mm[Hg] Carol Winn MD Work Phone: [facility] 05-22-2024 14:30-0500 Heart rate 102 /min Carol Winn MD Work Phone: [facility] 05-22-2024 14:30-0500 Respiratory rate 21 /min Carol Winn MD Work Phone: [facility] 05-22-2024 14:30-0500 SaO2% (BldA) [Mass fraction] 100 % Carol Winn MD Work Phone: [facility] 05-22-2024 14:30-0500 Systolic blood pressure 133 mm[Hg] Carol Winn MD Work Phone: [facility] 05-22-2024 13:40-0500 Body height 157.5 cm Carol Winn MD Work Phone: [facility] 05-22-2024 13:40-0500 Body mass index (BMI) [Ratio] 33.84 kg/m2 Carol Winn MD Work Phone: [facility] 05-22-2024 13:40-0500 Body weight 83.92 kg Carol Winn MD Work Phone: [facility] 05-15-2024 08:50-0500 Body height 157.5 cm Milton Fraire DPM FACFAS Work Phone: [facility] 05-15-2024 08:50-0500 Body mass index (BMI) [Ratio] 36.21 kg/m2 Milton Corneliusce DPM FACFAS Work Phone: [facility] 05-15-2024 08:50-0500 Body weight 89.81 kg Milton Corneliusce DPM FACFAS Work Phone: [facility] 05-15-2024 08:50-0500 Diastolic blood pressure 82 mm[Hg] Milton Fraire DPM FACFAS Work Phone: [facility] 05-15-2024 08:50-0500 Heart rate 92 /min Milton Fraire DPM FACFAS Work Phone: [facility] 05-15-2024 08:50-0500 Systolic blood pressure 132 mm[Hg] Milton Fraire DPM FACFAS Work Phone: [facility] 05-09-2024 14:55-0500 Body height 157.5 cm Giovani Hagen MD Work Phone: [facility] 05-09-2024 14:55-0500 Body mass index (BMI) [Ratio] 36.21 kg/m2 Giovani Hagen MD Work Phone: [facility] 05-09-2024 14:55-0500 Body weight 89.81 kg Giovani Hagen MD Work Phone: [facility] 05-09-2024 14:55-0500 Diastolic blood pressure 88 mm[Hg] Giovani Hagen MD Work Phone: [facility] 05-09-2024 14:55-0500 Heart rate 101 /min Giovani Hagen MD Work Phone: [facility] 05-09-2024 14:55-0500 SaO2% (BldA) [Mass fraction] 96 % Giovani Hagen MD Work Phone: [facility] 05-09-2024 14:55-0500 Systolic blood pressure 134 mm[Hg] Giovani Hagen MD Work Phone: [facility] 05-08-2024 15:13-0500 Body height 157.5 cm Prateek Pedraza DPM Work Phone: [facility] 05-08-2024 15:13-0500 Body mass index (BMI) [Ratio] 35.3 kg/m2 Prateek Pedraza DPM Work Phone: [facility] 05-08-2024 15:13-0500 Body weight 87.54 kg Prateek Pedraza DPM Work Phone: [facility] 05-08-2024 15:13-0500 Respiratory rate 18 /min Prateek Pedraza DPM Work Phone: [facility] 04-30-2024 15:10-0500 Body mass index (BMI) [Ratio] 35.12 kg/m2 Darwin Matty DO Work Phone: [facility] 04-30-2024 15:10-0500 Body weight 87.09 kg Darwin Matty DO Work Phone: [facility] 04-30-2024 15:10-0500 Diastolic blood pressure 74 mm[Hg] Darwin Matty DO Work Phone: [facility] 04-30-2024 15:10-0500 Systolic blood pressure 122 mm[Hg] Darwin Matty DO Work Phone: [facility] 04-26-2024 14:12-0500 Body mass index (BMI) [Ratio] 33.87 kg/m2 Iliana Yacapraro PA-C Work Phone: [facility] 04-26-2024 14:12-0500 Body weight 84 kg Iliana Yacapraro PA-C Work Phone: [facility] 04-26-2024 14:12-0500 Diastolic blood pressure 92 mm[Hg] Iliana Yacapraro PA-C Work Phone: [facility] 04-26-2024 14:12-0500 Heart rate 84 /min Iliana Yacapraro PA-C Work Phone: [facility] 04-26-2024 14:12-0500 Systolic blood pressure 133 mm[Hg] Iliana Yacapraro PA-C Work Phone: [facility] 04-18-2024 16:42-0500 Body mass index (BMI) [Ratio] 35.67 kg/m2 Josephine Gilman PATIENT ACCESS COORDINATOR Work Phone: [facility] 04-18-2024 16:42-0500 Body temperature 97.7 [degF] Josephine Gilman PATIENT ACCESS COORDINATOR Work Phone: [facility] 04-18-2024 16:42-0500 Body weight 88.45 kg Josephine Gilman PATIENT ACCESS COORDINATOR Work Phone: [facility] 04-18-2024 16:42-0500 Diastolic blood pressure 82 mm[Hg] Josephine Gilman PATIENT ACCESS COORDINATOR Work Phone: [facility] 04-18-2024 16:42-0500 Heart rate 112 /min Josephine Gilman PATIENT ACCESS COORDINATOR Work Phone: [facility] Comment on above: repeat pulse 96bpm apical. 04-18-2024 16:42-0500 Respiratory rate 20 /min Josephinelatosha Gilman PATIENT ACCESS COORDINATOR Work Phone: [facility] 04-18-2024 16:42-0500 SaO2% (BldA) [Mass fraction] 97 % Josephine Kalina PATIENT ACCESS COORDINATOR Work Phone: [facility] 04-18-2024 16:42-0500 Systolic blood pressure 128 mm[Hg] Josephine Gilman PATIENT ACCESS COORDINATOR Work Phone: [facility] 04-03-2024 10:39-0500 Body height 157.5 cm Deena Lyn PATIENT ACCESS COORDINATOR Work Phone: [facility] 04-03-2024 10:39-0500 Body mass index (BMI) [Ratio] 35.01 kg/m2 Deena Lyn PATIENT ACCESS COORDINATOR Work Phone: [facility] 04-03-2024 10:39-0500 Body weight 86.82 kg Deena Lyn PATIENT ACCESS COORDINATOR Work Phone: [facility] 04-03-2024 10:39-0500 Diastolic blood pressure 82 mm[Hg] Deena Lyn PATIENT ACCESS COORDINATOR Work Phone: [facility] 04-03-2024 10:39-0500 Heart rate 101 /min Deena Lyn PATIENT ACCESS COORDINATOR Work Phone: [facility] 04-03-2024 10:39-0500 Respiratory rate 16 /min Deena Lyn PATIENT ACCESS COORDINATOR Work Phone: [facility] 04-03-2024 10:39-0500 SaO2% (BldA) [Mass fraction] 99 % Deena Lyn PATIENT ACCESS COORDINATOR Work Phone: [facility] 04-03-2024 10:39-0500 Systolic blood pressure 122 mm[Hg] Deena Lyn PATIENT ACCESS COORDINATOR Work Phone: [facility] 04-01-2024 08:40-0500 Body height 157.5 cm Giovani Hagen MD Work Phone: [facility] 04-01-2024 08:40-0500 Body mass index (BMI) [Ratio] 34.39 kg/m2 Giovani Hagen MD Work Phone: [facility] 04-01-2024 08:40-0500 Body weight 85.28 kg Giovani Hagen MD Work Phone: [facility] 04-01-2024 08:40-0500 Diastolic blood pressure 88 mm[Hg] Giovani Hagen MD Work Phone: [facility] 04-01-2024 08:40-0500 Heart rate 88 /min Giovani Hagen MD Work Phone: [facility] 04-01-2024 08:40-0500 SaO2% (BldA) [Mass fraction] 94 % Giovani Hagen MD Work Phone: [facility] 04-01-2024 08:40-0500 Systolic blood pressure 132 mm[Hg] Giovani Hagen MD Work Phone: [facility] 03-20-2024 16:29-0500 Body mass index (BMI) [Ratio] 34.93 kg/m2 Darwin Matty DO Work Phone: [facility] 03-20-2024 16:29-0500 Body weight 86.64 kg Drawin Matty DO Work Phone: [facility] 03-20-2024 16:29-0500 Diastolic blood pressure 72 mm[Hg] Darwin Matty DO Work Phone: [facility] 03-20-2024 16:29-0500 Systolic blood pressure 118 mm[Hg] Darwin Matty DO Work Phone: [facility] 02-06-2024 09:14-0400 Body height 157.5 cm Giovani Hagen MD Work Phone: [facility] 02-06-2024 09:14-0400 Body mass index (BMI) [Ratio] 34.93 kg/m2 Giovani Hagen MD Work Phone: [facility] 02-06-2024 09:14-0400 Body weight 86.64 kg Giovani Hgaen MD Work Phone: [facility] 02-06-2024 09:14-0400 Diastolic blood pressure 88 mm[Hg] Giovani Hagen MD Work Phone: [facility] 02-06-2024 09:14-0400 Heart rate 106 /min Giovani Hagen MD Work Phone: [facility] 02-06-2024 09:14-0400 SaO2% (BldA) [Mass fraction] 99 % Giovani Hagen MD Work Phone: [facility] 02-06-2024 09:14-0400 Systolic blood pressure 130 mm[Hg] Giovani Hagen MD Work Phone: [facility] 01-22-2024 13:37-0400 Diastolic blood pressure 74 mm[Hg] Darwin Matty DO Work Phone: [facility] 01-22-2024 13:37-0400 Systolic blood pressure 112 mm[Hg] Darwin Matty DO Work Phone: [facility] 01-09-2024 16:00-0400 Body height 157.5 cm Giovani Hagen MD Work Phone: [facility] 01-09-2024 16:00-0400 Body mass index (BMI) [Ratio] 34.75 kg/m2 Giovani Hagen MD Work Phone: [facility] 01-09-2024 16:00-0400 Body weight 86.18 kg Giovani Hagen MD Work Phone: [facility] 01-09-2024 16:00-0400 Diastolic blood pressure 84 mm[Hg] Giovani Hagen MD Work Phone: [facility] 01-09-2024 16:00-0400 Heart rate 96 /min Giovani Hagen MD Work Phone: [facility] 01-09-2024 16:00-0400 SaO2% (BldA) [Mass fraction] 98 % Giovani Hagen MD Work Phone: [facility] 01-09-2024 16:00-0400 Systolic blood pressure 124 mm[Hg] Giovani Hagen MD Work Phone: [facility] 12-28-2023 15:17-0400 Blood Pressure Location BHAVESH DJEESUS [facility] 12-28-2023 15:17-0400 Diastolic blood pressure 100 mm[Hg] BHAVESH OLEG [facility] 12-28-2023 15:17-0400 Heart rate 101 /min BHAVESH OLEG [facility] 12-28-2023 15:17-0400 Respiratory rate 18 /min BHAVESH OLEG [facility] 12-28-2023 15:17-0400 Systolic blood pressure 146 mm[Hg] BHAVESH OLEG [facility] 12-26-2023 15:07-0400 Body height 157.5 cm Giovani Hagen MD Work Phone: [facility] 12-26-2023 15:07-0400 Body mass index (BMI) [Ratio] 34.2 kg/m2 Giovani Hagen MD Work Phone: [facility] 12-26-2023 15:07-0400 Body weight 84.82 kg Giovani Hagen MD Work Phone: [facility] 12-26-2023 15:07-0400 Diastolic blood pressure 78 mm[Hg] Giovani Hagen MD Work Phone: [facility] 12-26-2023 15:07-0400 Heart rate 98 /min Giovani Hagen MD Work Phone: [facility] 12-26-2023 15:07-0400 SaO2% (BldA) [Mass fraction] 98 % Giovani Hagen MD Work Phone: [facility] 12-26-2023 15:07-0400 Systolic blood pressure 112 mm[Hg] Giovani Hagen MD Work Phone: [facility] 12-19-2023 15:01-0400 Body height 157.5 cm Solo Mora MD Work Phone: [facility] 12-19-2023 15:01-0400 Body mass index (BMI) [Ratio] 34.39 kg/m2 Solo Mora MD Work Phone: [facility] 12-19-2023 15:01-0400 Body weight 85.28 kg Solo Mora MD Work Phone: [facility] 12-19-2023 15:01-0400 Diastolic blood pressure 91 mm[Hg] Solo Mora MD Work Phone: [facility] 12-19-2023 15:01-0400 Heart rate 94 /min Solo Mora MD Work Phone: [facility] 12-19-2023 15:01-0400 Systolic blood pressure 127 mm[Hg] Solo Mora MD Work Phone: [facility] 11-02-2022 13:10-0400 Body height 157.5 cm Samuel Freeman MD Work Phone: [facility] 11-02-2022 13:10-0400 Body weight 71 kg Samuel Freeman MD Work Phone: [facility] 11-02-2022 13:10-0400 Diastolic blood pressure 97 mm[Hg] Samuel Freeman MD Work Phone: [facility] 11-02-2022 13:10-0400 Heart rate 100 /min Samuel Freeman MD Work Phone: [facility] 11-02-2022 13:10-0400 Systolic blood pressure 141 mm[Hg] Samuel Freeman MD Work Phone: [facility] 08-31-2022 15:30-0400 Diastolic blood pressure 91 mm[Hg] Carol Winn MD Work Phone: [facility] 08-31-2022 15:30-0400 Heart rate 99 /min Carol Winn MD Work Phone: [facility] 08-31-2022 15:30-0400 Respiratory rate 24 /min Carol Winn MD Work Phone: [facility] 08-31-2022 15:30-0400 SaO2% (BldA) [Mass fraction] 97 % Carol Winn MD Work Phone: [facility] 08-31-2022 15:30-0400 Systolic blood pressure 140 mm[Hg] Carol Winn MD Work Phone: [facility] 08-31-2022 14:10-0400 Body height 157.5 cm Carol Winn MD Work Phone: [facility] 08-31-2022 14:10-0400 Body mass index (BMI) [Ratio] 33.84 kg/m2 Carol Winn MD Work Phone: [facility] 08-31-2022 14:10-0400 Body weight 83.92 kg Carol Winn MD Work Phone: [facility] 06-30-2022 12:40-0500 Diastolic blood pressure 85 mm[Hg] Carol Winn MD Work Phone: [facility] 06-30-2022 12:40-0500 Heart rate 70 /min Carol Winn MD Work Phone: [facility] 06-30-2022 12:40-0500 Respiratory rate 12 /min Carol Winn MD Work Phone: [facility] 06-30-2022 12:40-0500 SaO2% (BldA) [Mass fraction] 100 % Carol Winn MD Work Phone: [facility] 06-30-2022 12:40-0500 Systolic blood pressure 120 mm[Hg] Carol Winn MD Work Phone: [facility] 06-30-2022 11:18-0500 Body height 157.5 cm Carol Winn MD Work Phone: [facility] 06-30-2022 11:18-0500 Body mass index (BMI) [Ratio] 33.84 kg/m2 Carol Winn MD Work Phone: [facility] 06-30-2022 11:18-0500 Body weight 83.92 kg Carol Winn MD Work Phone: [facility] 05-27-2022 11:29-0500 Body weight 85.73 kg Carol Winn MD Work Phone: [facility] 05-27-2022 11:29-0500 Diastolic blood pressure 92 mm[Hg] Carol Winn MD Work Phone: [facility] 05-27-2022 11:29-0500 Heart rate 102 /min Carol Winn MD Work Phone: [facility] 05-27-2022 11:29-0500 Systolic blood pressure 145 mm[Hg] Carol Winn MD Work Phone: [facility] 05-03-2022 15:30-0500 Body height 158.75 cm Imad Asaad Other [facility] Other 05-03-2022 15:30-0500 Body mass index (BMI) [Ratio] 34.55 kg/m2 Imad Asaad Other [facility] Other 05-03-2022 15:30-0500 Body weight 87.09 kg Imad Asaad Other [facility] Other 05-03-2022 15:30-0500 Diastolic blood pressure 91 mm[Hg] Imad Asaad Other [employer] [facility] Other 05-03-2022 15:30-0500 Systolic blood pressure 130 mm[Hg] Imad Asaad Other [facility] Other 05-03-2022 14:47-0500 Body weight 0 kg MD Giovani Hagen Work Phone: [facility] Encounters Encounter Date Encounter Type Care Provider Facility Start: 12-30-2024 ambulatory Madhuri MISHRA Facility:[facility] Start: 10-30-2024 End: 10-30-2024 Refill Sandy JUSTICE Work Phone: [facility] Comment on above: Anxiety; Bipolar disorder, in partial remission, most recent episode manic (HCC) Start: 10-23-2024 End: 10-23-2024 Clinisync Result Encounter Generic External Data Provider [facility] External [facility] Unsolicited Start: 10-23-2024 End: 10-23-2024 Clinisync Result Encounter Generic External Data Provider [facility] External Department Unsolicited Start: 10-23-2024 ambulatory MARIO HARPER Facility:[facility] [place] Start: 10-23-2024 End: 10-23-2024 Subsequent hospital visit by physician General Iona Matt Mc Work Phone: Radiology Comment on above: Pelvic floor dysfunction [M62.89] Start: 10-21-2024 End: 10-21-2024 Clinisync Result Encounter Shannon Darden PATIENT ACCESS COORDINATOR Work Phone: [facility] External [facility] Unsolicited Start: 10-21-2024 End: 10-21-2024 Clinisync Result Encounter Shannon Darden PATIENT ACCESS COORDINATOR Work Phone: [facility] Department Unsolicited Start: 10-21-2024 ambulatory MARIO HARPER Facility:[facility] Start: 10-21-2024 End: 10-21-2024 Subsequent hospital visit by physician [facility] Work Phone: [facility] General Comment on above: Pelvic floor dysfunction [M62.89] Start: 10-15-2024 End: 10-15-2024 ambulatory MARIO HARPER Not Available Start: 10-15-2024 End: 10-15-2024 Admission to same day surgery center Mario Harper APRN.SWITCHBOARD TROUBLESHOOTER Work Phone: Colorectal Surgery Start: 10-15-2024 End: 10-15-2024 Patient encounter procedure Mario Harper APRN.SWITCHBOARD TROUBLESHOOTER Work Phone: Colorectal Surgery Start: 10-11-2024 End: 10-11-2024 ambulatory Lydia Rock PT, DPT Work Phone: [facility] Start: 10-11-2024 End: 10-11-2024 Patient encounter procedure Lydia Rock PT, DPT Work Phone: [facility] Comment on above: Muscle spasm (Primary Dx); Pelvic floor dysfunction; Chronic constipation Start: 10-11-2024 End: 10-11-2024 ambulatory LYDIA ROCK Facility:[facility] [place] Start: 10-10-2024 End: 10-10-2024 Bamboo flowsheet Shannon Darden PATIENT ACCESS COORDINATOR Work Phone: [facility] Start: 10-10-2024 End: 10-10-2024 Bamboo flowsheet Shannon Darden PATIENT ACCESS COORDINATOR Work Phone: [facility] Start: 10-10-2024 End: 10-10-2024 Office outpatient new 45 minutes Shannon Darden PATIENT ACCESS COORDINATOR Work Phone: [facility] Comment on above: Numbness and tingling (Primary Dx); Atypical migraine Start: 10-10-2024 End: 10-10-2024 ambulatory SHANNON DARDEN Not Available Start: 10-09-2024 End: 10-09-2024 Patient encounter procedure Mario Harper APRN.SWITCHBOARD TROUBLESHOOTER Work Phone: Colorectal Surgery Comment on above: Pelvic floor dysfunction (Primary Dx); Chronic constipation; Gastroparesis Start: 10-09-2024 End: 10-09-2024 ambulatory MARIO HARPER Facility:[facility] [place] Start: 10-08-2024 End: 10-08-2024 Bamboo flowsheet Deena Lyn PATIENT ACCESS COORDINATOR Work Phone: [facility] Start: 10-08-2024 End: 10-08-2024 Bamboo flowsheet Deena Lyn PATIENT ACCESS COORDINATOR Work Phone: [facility] Start: 10-08-2024 End: 10-08-2024 Refill Deena Lyn PATIENT ACCESS COORDINATOR Work Phone: [facility] Comment on above: Attention deficit hyperactivity disorder (ADHD), predominantly inattentive type ; Bipolar disorder, in partial remission, most recent episode manic (HCC); Agoraphobia with panic attacks Start: 10-08-2024 End: 10-08-2024 Office outpatient visit 25 minutes Deena Lyn PATIENT ACCESS COORDINATOR Work Phone: [facility] Comment on above: Numbness and tingling of upper extremity (Primary Dx); Attention deficit hyperactivity disorder (ADHD), predominantly inattentive type ; Bipolar disorder, in partial remission, most recent episode manic (HCC); Agoraphobia with panic attacks ; Numbness and tingling of left side of face; Urinary tract infection without hematuria, site unspecified; Inflammation and stiffening of spine; Mild intermittent asthma without complication (HCC) Start: 10-01-2024 End: 10-01-2024 Telephone encounter Carol Winn MD Work Phone: Gastroenterology Start: 09-25-2024 End: 09-25-2024 Bamboo flowsheet Deena Lyn NP Work Phone: [facility] Start: 09-25-2024 End: 09-25-2024 Bamboo flowsheet Deena Lyn PATIENT ACCESS COORDINATOR Work Phone: [facility] Start: 09-25-2024 End: 09-25-2024 Office outpatient visit 25 minutes Deena Lyn PATIENT ACCESS COORDINATOR Work Phone: [facility] Comment on above: Extrusion of suture, sequela (Primary Dx ) Start: 09-25-2024 End: 09-25-2024 ambulatory DEENA LYN Not Available Start: 09-17-2024 End: 09-17-2024 Bamboo flowsheet Sandy Armenta PA Work Phone: [facility] Start: 09-17-2024 End: 09-17-2024 Bamboo flowsheet Sandy Armenta PA Work Phone: [facility] Start: 09-17-2024 End: 09-17-2024 Office outpatient visit 15 minutes Sandy Armenta PA Work Phone: [facility] Comment on above: Laceration of right knee without complic ation, sequela (Primary Dx) Start: 09-17-2024 End: 09-17-2024 ambulatory SANDY ARMENTA Not Available Start: 09-10-2024 End: 09-10-2024 Office outpatient visit 25 minutes Giovani Hagen MD Work Phone: [facility] Comment on above: Fall in home, sequela (Primary Dx); Laceration of right knee, subsequent encounter Start: 09-10-2024 End: 09-10-2024 ambulatory GIOVANI HAGEN Not Available Start: 09-04-2024 End: 09-04-2024 Office outpatient visit 15 minutes Milton Fraire DPM FACFAS Work Phone: [facility] Comment on above: Sprain of anterior talofibular ligament of right ankle, subsequent encounter (Primary Dx); Right ankle instability Start: 09-04-2024 End: 09-04-2024 ambulatory MILTON FRAIRE Not Available Start: 09-02-2024 End: 09-02-2024 Office outpatient visit 25 minutes Giovani Hagen MD Work Phone: [facility] Comment on above: Mood swings (Primary Dx); Bipolar disorder, in partial remission, most recent episode manic (CMS/HCC); Anxiety; Sinus tachycardia Start: 09-02-2024 End: 09-02-2024 ambulatory GIOVANI Bob HIEU Not Available Start: 08-28-2024 End: 08-29-2024 Refill [...] / Non-visit Giovani Hagen MD Work Phone: [facility] Includes [facility] Work Phone: Start: 08-16-2024 End: 08-19-2024 Evaluation and management of inpatient Giovani Hagen MD Work Phone: [facility] Medical [facility] Work Phone: Start: 08-14-2024 End: 08-14-2024 ambulatory [...] Phone: [facility] Start: 08-14-2024 End: 04-23-2025 Bamboo flowsheet Milton D Dolce DPM FACFAS Work Phone: [facility] Start: 08-13-2024 End: 08-13-2024 Patient encounter procedure Solo Mora MD Work Phone: Cardiology Comment on above: Palpitation (Primary Dx) Start: 08-13-2024 End: 08-13-2024 [facility] [place] Start: 08-13-2024 End: 08-13-2024 [facility] [place] Start: 08-13-2024 [facility]ulatory [facility] [place] Start: 08-01-2024 End: 08-01-2024 Office outpatient visit [...] End: 07-10-2024 Subsequent hospital visit by physician [address] [facility] Work Phone: Radiology Comment on above: Chronic idiopathic constipation [K59.04] Start: 07-10-2024 End: 07-10-2024 ambulatory Wildlife [employer] Professor [facility] Work Phone: Obstetrics/Gynecology Start: 07-10-2024 End: [...] Result Encounter Darwin Matty DO Work Phone: [facility] External Department Unsolicited Start: 06-19-2024 End: 06-19-2024 [...] 05-23-2024 End: 05-23-2024 Clinisync Result Encounter Darwin Starr DO Work Phone: [facility] Unsolicited Start: 05-23-2024 End: 05-23-2024 Clinisync Result Encounter Darwin Mcleodo DO Work Phone: [facility] Unsolicited Start: 05-23-2024 End: 05-24-2024 Orders Only Carol Winn MD Work Phone: Ambulatory Surgery Comment on above: Results (C diff) Start: 05-22-2024 End: 05-22-2024 ambulatory OBED BHATT Facility:[facility] Start: 05-22-2024 End: 05-22-2024 Clinisync Result Encounter [...] Transcribe Orders Rosario Mcconnell MD Work Phone: [facility] Comment on above: [...] 15 minutes Darwin Matty DO Work Phone: [facility] Comment on above: Pre-op evaluation; H/O female dyspareunia; Pelvic pain; Other endometriosis; H/O: hysterectomy Start: 04-30-2024 End: 04-30-2024 Preprocedural examination done Darwin Matty DO Work Phone: [facility] Healthcare Start: 04-30-2024 End: 04-30-2024 Bamboo flowsheet Darwin Matty DO Work Phone: [facility] Start: 04-30-2024 End: 04-30-2024 Bamboo flowsheet Darwin Matty DO Work Phone: [facility] Start: 04-30-2024 End: 04-30-2024 Refill Giovani Hagen MD Work Phone: [facility] Comment on above: Attention deficit hyperactivity disorder [...] Start: 04-26-2024 End: 04-26-2024 ambulatory ILIANA MERCADO Facility:[facility] [place] Start: 04-26-2024 End: 04-26-2024 Patient encounter procedure Lydia Kelley DO Work Phone: Orthopaedics Comment on above: Sprain of anterior talofibular ligament of right ankle, initial encounter (Primary Dx) Start: 04-22-2024 End: 04-22-2024 Telephone encounter Giovani Hagen MD Work Phone: [facility] Start: 04-19-2024 End: 04-22-2024 Refill Sandy Armenta PA Work Phone: [facility] Comment on above: Obesity (BMI 35.0-39.9 without comorbidi ty) Start: 04-18-2024 End: 04-18-2024 ambulatory JOSEPHINE GILMAN Not Available Start: 04-18-2024 End: 04-18-2024 Office outpatient visit 25 minutes Josephine Gilman PATIENT ACCESS COORDINATOR Work Phone: [facility] Comment on above: Acute bronchitis with asthma (CMS/HCC) ( Primary Dx) Start: 04-16-2024 End: 04-16-2024 ambulatory GIOVANI HAGEN Not Available Start: 04-09-2024 End: 04-09-2024 ambulatory SOLO MORA Facility:[facility] Start: 04-05-2024 End: 04-09-2024 ambulatory [facility] Cardiology Comment on above: Surgical Clearance Start: 04-05-2024 End: 04-05-2024 Telephone encounter Solo Mora MD Work Phone: Cardiology Comment on above: Received Outside Medical Records (Cardio Clearance [facility]) Start: 04-03-2024 End: 04-03-2024 ambulatory DEENA LYN Not Available Start: 04-03-2024 End: 04-03-2024 Office outpatient visit 25 minutes Deena Lyn PATIENT ACCESS COORDINATOR Work Phone: [facility] Comment on above: Hypokalemia (Primary Dx); Elevated blood sugar; Pre-operative clearance; Acute pain of left shoulder; Obesity (BMI 35.0-39.9 without comorbidity) Start: 04-03-2024 End: 04-03-2024 Preoperative state Deena Lyn PATIENT ACCESS COORDINATOR Work Phone: [facility] Start: 04-02-2024 End: 04-02-2024 Telephone encounter Solo Mora MD Work Phone: Cardiology Comment on above: Received Outside Medical Records ([facility]) Start: 04-01-2024 End: 04-01-2024 ambulatory GIOVANI HAGEN [...] Unsolicited Start: 03-19-2024 End: 03-19-2024 ambulatory Anitra Lry HELPDESK ANALYST [facility] Comment on above: Cervical radiculopathy (Primary Dx) Start: 03-11-2024 End: 03-11-2024 ambulatory Arun Brink HELPDESK ANALYST [facility] Comment on above: Cervical radiculopathy (Primary Dx) Start: 03-11-2024 End: 03-11-2024 Bamboo flowsheet Arun Brink HELPDESK ANALYST [facility] Start: 03-11-2024 End: 03-11-2024 Bamboo flowsheet Arun Brink HELPDESK ANALYST [facility] Start: 03-07-2024 End: 03-07-2024 Michael Hagen MD Work Phone: [facility] Comment on above: Obesity (BMI 35.0-39.9 without comorbidi ty) Start: 03-06-2024 End: 03-07-2024 ambulatory Arun Brink HELPDESK ANALYST [facility] Comment on above: Cervical radiculopathy (Primary Dx) Anxiety; Bipolar disorder, in partial remission, most recent episode manic ([facility] Start: 02-29-2024 End: 02-29-2024 ambulatory Anitra Bainbley HELPDESK ANALYST [facility] Comment on above: Cervical radiculopathy (Primary Dx) Start: 02-29-2024 End: 02-29-2024 Bamboo flowsheet Anitra Kelbley HELPDESK ANALYST [facility] Start: 02-29-2024 End: 02-29-2024 Bamboo flowsheet Anitra Odellbley HELPDESK ANALYST [facility] Start: 02-27-2024 End: 02-27-2024 ambulatory Anitra Odellbley HELPDESK ANALYST [facility] Comment on above: Cervical radiculopathy (Primary Dx) Start: 02-27-2024 End: 02-27-2024 Bamboo flowsheet Anitra Ricci HELPDESK ANALYST [facility] Start: 02-27-2024 End: 02-27-2024 Bamboo flowsheet Anitra Ricci HELPDESK ANALYST [facility] Start: 02-20-2024 End: 02-20-2024 Refill Audrey Chris DIRECTOR NURSES' REGISTRY [facility] Comment on above: Attention deficit hyperactivity disorder (ADHD), predominantly inattentive type (CMS/HCC) Start: 02-14-2024 End: 02-15-2024 ambulatory Arun Brink HELPDESK ANALYST [facility] Comment on above: Cervical radiculopathy (Primary Dx) Start: 02-14-2024 End: 02-14-2024 Bamboo flowsheet Arun Brink HELPDESK ANALYST [facility] Start: 02-14-2024 End: 02-14-2024 Bamboo flowsheet Raun Brink HELPDESK ANALYST [facility] Start: 02-12-2024 End: 02-12-2024 ambulatory Zhen Burgess PT Work Phone: [facility] Comment on above: Cervical radiculopathy (Primary Dx) Start: 02-12-2024 End: 02-12-2024 Bamboo flowsheet Zhen Burgess PT Work Phone: [facility] Start: 02-12-2024 End: 02-12-2024 Bamboo flowsheet Zhen Burgess PT Work Phone: [facility] Start: 02-07-2024 End: 02-07-2024 ambulatory Arun Brink HELPDESK ANALYST [facility] Comment on above: Cervical radiculopathy (Primary Dx) Start: 02-07-2024 End: 02-07-2024 Bamboo flowsheet Arun Brink HELPDESK ANALYST [facility] Start: 02-07-2024 End: 02-07-2024 Bamboo flowsheet Arun Brink HELPDESK ANALYST [facility] Start: 02-06-2024 End: 02-06-2024 Office outpatient visit 25 minutes Giovani Hagen MD Work Phone: [facility] Comment on above: Localized edema (Primary Dx); Obesity (BMI 35.0-39.9 without comorbidity); Injury of right ankle, subsequent encounter; Anxiety; Bipolar disorder, in partial remission, most recent episode manic (CMS/HCC) Start: 02-06-2024 End: 02-06-2024 ambulatory GIOVANI HAGEN [...] Eval (Tried to contact to [facility] fritz PT Eval for cervical radiculopathy; but [...] in partial remission, most recent episode manic ([facility] Start: 01-09-2024 End: 01-09-2024 ambulatory GIOVANI Bob HIEU Not Available Start: 01-08-2024 End: 01-08-2024 Telephone encounter Giovani Hagen MD Work Phone: [facility] Comment on above: Med Refill Start: 12-28-2023 End: 12-28-2023 Patient encounter procedure BHAVESH DEJESUS [facility] Start: 12-28-2023 End: 12-29-2023 ambulatory [facility] Provider Cardiology Comment on above: Zio Start: 12-26-2023 End: 12-26-2023 ambulatory GIOVANI Bob HIEU Not Available Start: 12-26-2023 End: 12-26-2023 Office [...] End: 02-01-2024 Telephone encounter Benito Kendrick [facility] Comment on above: Lab results Start: 12-13-2023 End: 12-13-2023 Clinisync Result Encounter Generic External Data Provider NOM[facility] External Department Unsolicited Start: 12-13-2023 End: 12-13-2023 Clinisync Result Encounter Generic External Data Provider [facility] External Department Unsolicited Start: 12-04-2023 End: 12-04-2023 ambulatory GIOVANI Bob HIEU Not Available Start: 12-04-2023 Patient encounter status Zhen Burgess PT Work Phone: [facility] Start: 11-02-2023 Orders Only Solo Mora MD Work Phone: Cardiology Comment on above: Gastroparesis (Primary Dx) Patient Update (Refe rral & Records are in Care Everywhere) Start: 03-22-2023 End: 03-24-2023 Evaluation and management of inpatient MARY [facility] Start: 03-20-2023 ambulatory Carol Winn MD Work [...] Work Phone: [facility] Work Phone: Start: 10-26-2022 End: 10-26-2022 Patient encounter procedure MD Giovani Hagen Work Phone: [facility]-Ultrasound Main [facility] Work Phone: Start: 10-18-2022 ambulatory Maria Dolores Corey DO Work Phone: Gastroenterology Start: 10-18-2022 Telephone encounter Maria Dolores Corey DO Work Phone: Gastroenterology Comment on above: Medication Preauthorization (M[employer]) Results Start: 10-17-2022 End: 10-17-2022 Patient encounter procedure [facility]astro[facility] Work Phone: Gastroenterology Comment on above: Gastroparesis (Primary Dx) Start: 09-12-2022 End: 09-12-2022 Subsequent hospital visit by physician [facility] Work Phone: [facility] Radiology Molecular Comment on above: Nausea [R11.0] Start: 08-31-2022 End: 08-31-2022 Subsequent hospital visit by physician Carol Winn MD Work Phone: Ambulatory Surgery Comment on above: PUD (peptic ulcer disease) [K27.9] Start: 08-24-2022 Telephone encounter Nurse [facility] Work Phone: Gastroenterology Comment on above: Appointment Start: 07-08-2022 End: 07-08-[address] MADHURI MISHRA . Facility:H1 Start: 07-06-2022 End: 07-07-[address] MADHURI MISHRA . Facility:H1 Start: 07-05-2022 End: 07-05-2022 Patient encounter procedure Madhuri MISHRA [facility] Start: 07-04-2022 Orders Only Carol Winn MD Work Phone: Gastroenterology Start: 06-30-2022 End: 06-30-2022 Subsequent hospital visit by physician Carol Winn MD Work Phone: Ambulatory Surgery Comment on above: Bilious vomiting with nausea [R11.14] Start: 06-29-2022 End: 06-30-[address] MADHURI MISHRA . Facility:H1 Start: 06-29-2022 End: 06-29-2022 Lab Drop off Madhuri MISHRA [facility] Start: 06-23-2022 ambulatory Carol Winn MD Work Phone: Gastroenterology Comment on above: EGD instructions Start: 06-23-2022 E-mail encounter from caregiver Carol Winn MD Work Phone: [facility] Start: 06-16-2022 ambulatory [facility] Provider Gastroenterology Comment on above: Question regarding US ABD RT UPPER QUADR ANT Start: 06-15-2022 End: 06-15-2022 Subsequent hospital visit by physician [facility] Work Phone: [facility] Radiology Ultrasound Comment on above: Liver lesion [K76.9] Start: 06-14-2022 Orders Only Carol Winn MD Work Phone: Ambulatory Surgery Comment on above: Liver lesion (Primary Dx) Results Start: 06-10-2022 ambulatory Diamond Pycraft RT(R) Radiology Ct Scan Comment on above: Radiology CT Start: 06-10-2022 Patient encounter procedure Diamond Pycraft RT(R) [facility] Start: 06-10-2022 End: 06-10-2022 Subsequent hospital visit by physician Ct Prep [facility] C[facility] Radiology Ct Scan Comment on above: Bilious vomiting with nausea [R11.14] Start: 05-27-2022 End: 05-27-2022 Subsequent hospital visit by physician [facility] Work Phone: [facility] Radiology General Comment on above: SOB (shortness of breath) [R06.02] Start: 05-27-2022 End: 05-27-2022 Patient encounter procedure Carol Winn MD Work Phone: Gastroenterology Comment on above: Fatty liver (Primary Dx); Bilious vomiting with nausea; Right sided abdominal pain; Nausea; History of diverticulitis; SOB (shortness of breath) Start: 05-13-2022 End: 05-13-2022 ambulatory MD Giovani Hagen Work Phone: [facility] Work Phone: Start: 05-13-2022 End: 05-13-2022 Patient encounter procedure MD Giovani Hagen Work Phone: [facility]-Digestive Health Work Phone: Start: 05-03-2022 End: 05-04-2022 ambulatory IMAD ASALittle [employer] Other Start: 05-03-2022 Office consultation new/estab patient 60 min Imad Asaad [facility] Gastroenterology Start: 04-20-2022 End: 04-20-[address] AURORA IRBY . Facility:H1 Start: 04-06-2022 End: 04-07-[address] GIOVANI HAGEN Facility:H1 Start: 12-21-2021 End: 12-22-[address] AURORA IRBY . Facility:H1 Start: 12-10-2021 End: 12-10-2021 Subsequent [facility] by [facility] Comment on above: Elevated LFTs [R79.89] Start: 10-27-2021 End: 10-28-[address] AURORA IRBY . Facility:H1 Start: 10-20-2021 End: 10-20-2021 ambulatory AYLEEN KRISHNAMURTHY . Facility:H1 Start: 10-19-2021 End: 10-19-[address] AURORA IRBY . Facility:H1 Start: 09-06-2021 End: 09-07-[address] GIOVANI HAGEN Facility:H1 Start: 08-27-2021 End: 08-28-[address] GIOVANI HAGEN Facility:H1 Start: 08-14-2021 End: 08-15-[address] GIOVANI HAGEN Facility:H1 Start: 11-06-2018 End: 11-09-2018 Patient encounter procedure [facility] Procedures Date Procedure Procedure Detail Performing Clinician Start: 10-23-2024 Radiologic exam abdomen 1 view Mario Harper APRN.SWITCHBOARD TROUBLESHOOTER Work Phone: Start: 10-23-2024 XR ABDOMEN 1V SUPINE Generic External Data Provider Start: 10-21-2024 MRI HEAD/BRAIN WO/W CONTR Shannon Darden PATIENT ACCESS COORDINATOR Work Phone: Start: 10-15-2024 [facility] Mario Harper APRN.SWITCHBOARD TROUBLESHOOTER Work Phone: Start: 07-10-2024 Us pelvic nonobstetric real-time image [...] 12-13-2023 ALL CBC WITH AUTO DIFF Dez Aroldo Colvin DPM Work Phone: Start: 04-18-2023 History [...] present section Madhuri SERRANO Cholecystectomy BHAVESH LEO H/O: hysterectomy H/O: hysterectomy Darwin Starr DO Work Phone: Hysterectomy Madhuri MISHRA Plan of Treatment Date Care Activity Detail Author Start: 09-06-2034 Urine microalbumin profile DTaP,Tdap,Td Vaccine (7 - Td or Tdap) [facility] Start: 12-26-2024 End: 12-26-2024 Patient encounter procedure 12/26/2024 1:20 PM EDT Office Visit [facility] [address] [place] [address] Jatin Cabrera MD [address] S[address]on [address] [place] [address] [facility] Start: 12-23-2024 Influenza vaccination [facility] Comment on above: Postponed from 12/24/2023 (Other Medical Reasons) Start: 11-18-2024 End: 11-18-2024 Patient encounter procedure 11/18/2024 12:00 PM EDT Procedure Visit [facility] [address] [facility] [address] [place] [address] [facility] Start: 11-04-2024 End: 11-04-2024 Patient encounter procedure 11/04/2024 2:00 PM EDT Office Visit Gynecology [address] [place] [address] Emma Ying, REDUCTION PLANT SUPERVISOR.SWITCHBOARD TROUBLESHOOTER [address] [place] [address] Other specified dyspareunia Gynecology Comment on above: Other specified dyspareunia Start: 10-29-2024 End: 10-29-2024 Patient encounter procedure 10/29/2024 10:00 AM EDT Procedure Visit [facility] [address] [place] [phone] [facility] NEURO 210 Start: 10-15-2024 End: 10-15-2024 Admission to same day surgery center 10/15/2024 10:30 AM EDT Procedure Colorectal Surgery [address] [facility] [address] [place], [place] [id number] Mario Harper APRN.SWITCHBOARD TROUBLESHOOTER [address] [place] [address] manometry Colorectal Surgery Comment on above: manometry Start: 10-10-2024 End: 10-10-2025 EMG 1 Extremeity EMG 1 [facility]remeity Neurology Routine Numbness and tingling Expected: 10/10/2024 (Approximate), Expires: 10/10/2025 [facility] Comment on above: Expected: 10/10/2024 (Approximate), Expi res: 10/10/2025 Start: 10-10-2024 End: 10-10-2025 MR Brain WO and W contrast IV MR brain w and wo contrast routine Imaging Routine Numbness and tingling Atypical migraine Expected: 10/10/2024 (Approximate), Expires: 10/10/2025 [facility] Work Phone: Comment on above: Expected: 10/10/2024 (Approximate), Expi res: 10/10/2025 Start: 10-10-2024 End: 10-10-2024 Patient encounter procedure [facility] NE[facility]O 210 Comment on above: Arrived Start: 09-25-2024 End: 09-25-2024 Patient encounter procedure 09/25/2024 10:30 AM EDT Office Visit [facility] [address] [facility] [facility] [address] [place] [phone] Deena Lyn, JAGDISH [address] [facility] [address] [place] [address] Arrived [facility] Comment on above: Arrived Start: 09-17-2024 End: 09-17-2024 Patient encounter procedure [facility] Comment on above: Arrived Start: 09-04-2024 End: 09-04-2024 Patient encounter procedure 09/04/2024 4:40 PM EDT Office Visit [facility] [address] [place] [phone] Milton Fraire, DPM FACFAS [address] [place] [address] [facility] P[facility] Start: 09-02-2024 End: 09-02-2024 Patient encounter procedure 09/02/2024 3:00 PM EDT Office Visit [facility] 112 [facility] 110 [place] [address] Giovani Hagen MD [address] [facility] [address] [place] [address] [facility] Start: 08-21-2024 End: 08-21-2024 Patient encounter procedure 08/21/2024 4:00 PM EDT Office Visit [facility] [address] [place] [address] Milton Fraire, DPM FACFAS [address] [place] [address] [facility] P[facility] Start: 08-19-2024 [facility] Start: 08-16-2024 Hospital admission [facility] Start: 08-16-2024 [facility] Start: 08-14-2024 End: 08-14-2024 Patient encounter procedure 08/14/2024 4:10 PM EDT Office Visit [facility] [address] [place] [address] Milton Fraire, DPM FACFAS [address] [place] [address] [facility] N[facility] P[facility] Start: 08-13-2024 End: 08-13-2024 Patient encounter procedure 08/13/2024 2:30 PM EDT Office Visit Cardiology [address] [place] [address] Solo Mora MD [address] [place] [address] Dx: Syncope, unspecified syncope type [R55] Cardiology Comment on above: Dx: Syncope, unspecified syncope type [R 55] Start: 08-13-2024 End: 08-13-2024 Patient encounter procedure 08/13/2024 12:30 PM EDT Office Visit Cardiology [address] [place] [address] Dx: Syncope, unspecified syncope type [R55] Cardiology Comment on above: Dx: Syncope, unspecified syncope type [R 55] Start: 08-13-2024 End: 08-13-2024 Patient encounter procedure 08/13/2024 10:30 AM EDT Office Visit Cardiology [address] [place] [address] Dx: Syncope, unspecified syncope type [R55] Cardiology Comment on above: Dx: Syncope, unspecified syncope type [R 55] Start: 08-01-2024 End: 08-01-2024 Patient encounter procedure 08/01/2024 2:30 PM EDT Office Visit [facility] [address] [facility] [address] [place] [address] Giovani Hagen MD [address] [facility] [address] [place] [address] [facility] Start: 07-26-2024 End: 07-26-2024 ambulatory 07/26/2024 8:40 AM EDT [facility] Gastroenterology [address] [place] [address] [place] [address] [place] [address] Elevated LFT, per Pt Gastroenterology Comment on above: Elevated LFT, per Pt Start: 07-24-2024 End: 07-24-2024 Patient encounter procedure 07/24/2024 3:50 PM EDT Office Visit [facility] [address] [facility] [place] [address] Milton Fraire, DPM FACFAS [address] [place] [address] [facility] POD Start: 07-04-2024 End: 07-04-2024 Patient encounter procedure 07/04/2024 3:30 PM EDT Office Visit [facility] [address] [facility] [address] [place] [address] Giovani Hagen MD [address] [facility] [address] [place] [address] [facility] Start: 07-03-2024 End: 07-03-2024 Patient encounter procedure 07/03/2024 2:20 PM EDT Office Visit [facility] [address] [place] [address] Milton Fraire, DPM FACFAS [address] [facility] [place] [address] [facility] NMA POD Start: 06-26-2024 End: 06-26-2024 Patient encounter procedure 06/26/2024 2:50 PM EST Office Visit [facility] P[facility] [address] [place] [address] Milton Fraire, DPM FACFAS [address] [facility] [place] [address] [facility] NMA POD Start: 06-25-2024 End: 06-25-2024 Patient encounter procedure [facility] BCP OB Comment on above: Arrived Start: 06-24-2024 End: 06-24-2024 Patient encounter procedure 06/24/2024 10:40 AM EST Office Visit [facility] [address] [place] [address] Milton Fraire, DPM FACFAS [address] [facility] [place] [address] [facility] POD Start: 06-19-2024 End: 06-19-2024 Patient encounter procedure [facility] SC POD Comment on above: Arrived Start: 06-17-2024 End: 06-17-2024 Patient encounter procedure 06/17/2024 10:30 AM EST Office Visit Orthopaedics [address] [address] Naren Verdugo PA-C [address] [place] [address] 1st post op Rt ankle arthroscopy/internal brace 06/04/24 Orthopaedics Comment on above: 1st post op Rt ankle arthroscopy/interna l brace 06/04/24 Start: 06-12-2024 End: 06-12-2024 ambulatory 06/12/2024 1:45 PM EST Results Only Cardiology [address] [place], [place] [id number] Dx: Syncope, unspecified syncope type [R55] Cardiology Comment on above: Dx: Syncope, unspecified syncope type [R 55] Start: 06-12-2024 End: 06-12-2024 Patient encounter procedure Cardiology Comment on above: Dx: Syncope, unspecified syncope type [R 55] Start: 06-10-2024 End: 06-10-2024 Patient encounter procedure 06/10/2024 9:40 AM EST Appointment [facility] [address] [facility] [address] [place] [address] Rosario Mcconnell I, MD [address] [facility] [address] [place] [address] [facility] [place] Comment on above: [facility] Start: 06-04-2024 End: 06-04-2024 Patient encounter procedure 06/04/2024 9:40 AM EST Office Visit [facility] N[facility] POD [address] [place] [address] Milton Fraire, DPM FACFAS 368 [facility] [place] [address] [facility] N[facility] POD Start: 06-04-2024 End: 06-04-2024 Admission to same day surgery center 06/04/2024 7:30 AM EST - 06/04/2024 10:10 AM EST Surgery [facility] Surgery [address] [place] [address] Lydia Kelley DO [address] [place] [address] REPAIR ANKLE LIGAMENT SECONDARY DISRUPTED, COLLATERAL [facility] Comment on above: REPAIR ANKLE LIGAMENT SECONDARY DISRUPTE D, COLLATERAL Start: 06-04-2024 End: 06-04-2024 Repair secondary disrupted ligament ankle coltrl REPAIR ANKLE LIGAMENT SECONDARY DISRUPTED, COLLATERAL Right ankle instability 06/04/2024 7:30 AM EST ME OR Start: 06-04-2024 Subsequent hospital visit by physician 06/04/2024 7:30 AM EST Hospital Encounter [facility] Surgery [address] [place] [address] Lydia Kelley DO [address] [facility] [place] [address] 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] [facility] Surgery Comment on above: 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] Start: 05-31-2024 End: 05-31-2024 ambulatory 05/31/2024 1:15 PM EST [facility] [address] [address] Lydia Kelley DO [address] [facility] [place] [address] 4 week f/u, right ankle Orthopaedics Comment on above: 4 week f/u, right ankle Start: 05-31-2024 End: 05-31-2024 Patient encounter procedure 05/31/2024 9:45 AM EST Office Visit Orthopaedics [address] [address] Lydia Kelley DO [address] [facility] [address] 4 week f/u, right ankle Orthopaedics Comment on above: 4 week f/u, right ankle Start: 05-29-2024 End: 05-29-2024 Patient encounter procedure [facility] Comment on above: Arrived Start: 05-22-2024 End: 05-22-2024 Patient encounter procedure 05/22/2024 2:30 PM EST Appointment Ambulatory Surgery [address] [place] [address] [place] [address] [place] [address] BRBPR (bright red blood per rectum) [K62.5] Ambulatory Surgery Comment on above: BRBPR (bright red blood per rectum) [K62 .5] Start: 05-15-2024 End: 05-15-2024 Patient encounter procedure [facility] NMA POD Comment on above: Arrived Start: 05-08-2024 End: 05-08-2024 Patient encounter procedure 05/08/2024 3:10 PM EST Office Visit [facility] SC POD [address] [place] [phone] Prateek Pedraza DPM [address] [address] [facility]OD Start: 05-05-2024 End: 05-05-2024 Anesthesia consultation 05/05/2024 11:59 PM EST Anesthesia Event Ambulatory Surgery [address] [place] [address] Sharla Bonds, BASSAM.BALANCE ASSEMBLER [address] [place] [address] Ambulatory Surgery Start: 05-02-2024 End: 05-02-2024 ambulatory 05/02/2024 12:00 PM EST Procedure Gastroenterology [address] [place] [address] fibroscan Gastroenterology Comment on above: fibroscan Start: 05-01-2024 End: 05-01-2024 Patient encounter procedure 05/01/2024 4:30 PM EST Office Visit [facility] P[facility] [address] [place] [phone] Prateek Pedraza DPM [address] [address] [facility]OD Start: 04-30-2024 End: 04-30-2024 Patient encounter procedure [facility] OB Comment on above: Arrived Start: 04-26-2024 End: 04-26-2024 Patient encounter procedure 04/26/2024 3:05 PM EST Office Visit Gastroenterology [address] [place] [address] Iliana Mercado PA-C [address] [place] [address] Elevated LFT, per Pt Gastroenterology Comment on above: Elevated LFT, per Pt Start: 04-26-2024 End: 07-26-2024 Alpha 1 antitrypsin [Mass/volume] in Serum or Plasma [facility] Comment on above: Expected: 04/26/2024, Expires: Start: 04-26-2024 End: 07-26-2024 [id number] [Mass/volume] in Serum or Plasma [facility] Work Phone: Comment on above: Expected: 04/26/2024, Expires: Start: 04-26-2024 End: 07-26-2024 DENY BY IFA WITH REFLEX [facility] Comment on above: Expected: 04/26/2024, Expires: Start: 04-26-2024 End: 07-26-2024 Ceruloplasmin [Mass/volume] in Serum or Plasma [facility] Comment on above: Expected: 04/26/2024, Expires: Start: 04-26-2024 End: 07-26-2024 Hepatitis A virus IgM Ab [Presence] in Serum [facility] Comment on above: Expected: 04/26/2024, Expires: Start: 04-26-2024 End: 07-26-2024 Hepatitis B virus core IgM Ab [Presence] in Serum [facility] Comment on above: Expected: 04/26/2024, Expires: Start: 04-26-2024 End: 07-26-2024 Hepatitis B virus surface Ag [Presence] in Serum [facility] Comment on above: Expected: 04/26/2024, Expires: Start: 04-26-2024 End: 07-26-2024 Hepatitis C virus Ab [Presence] in Serum [facility] Comment on above: Expected: 04/26/2024, Expires: Start: 04-26-2024 End: 07-26-2024 Mitochondria Ab [Presence] in Serum by Immunofluorescence [facility] Comment on above: Expected: 04/26/2024, Expires: Start: 04-26-2024 End: 07-26-2024 Smooth muscle Ab [Presence] in Serum [facility] Comment on above: Expected: 04/26/2024, Expires: Start: 04-03-2024 End: 04-03-2025 Hemoglobin A1c/Hemoglobin.total in Blood Hemoglobin A1c Lab Routine Elevated blood sugar Expected: 04/03/2024 (Approximate), Expires: 04/03/2025 [facility] Comment on above: Expected: 04/03/2024 (Approximate), Expi res: 04/03/2025 Start: 04-03-2024 End: 04-03-2025 MR Shoulder - left WO contrast MR shoulder left wo IV contrast Imaging Routine Acute pain of left shoulder Expected: 04/03/2024, Expires: 04/03/2025 [facility] Comment on above: Expected: 04/03/2024, Expires: Start: 04-03-2024 End: 04-03-2025 Potassium [Moles/volume] in Serum or Plasma Potassium Lab Routine Hypokalemia Expected: 04/03/2024 (Approximate), Expires: 04/03/2025 [facility] Work Phone: Comment on above: Expected: 04/03/2024 (Approximate), Expi res: 04/03/2025 Start: 04-01-2024 End: 04-01-2024 Patient encounter procedure 04/01/2024 8:30 AM EST Office Visit [facility] [address] [place] [address] Giovani Hagen MD [address] [place] [address] [facility] Start: 03-27-2024 End: 03-27-2024 ambulatory 03/27/2024 4:00 PM EST Treatment [facility] PT [address] [place] [address] Zhen Burgess, PT [address] [place] [address] [facility] PT Start: 03-25-2024 End: 03-25-2024 ambulatory 03/25/2024 4:00 PM EST Treatment [facility] PT [address] [facility] [address] [place] [address] Arun Hernadez, HELPDESK ANALYST [facility] PT Start: 03-20-2024 End: 03-20-2024 Patient encounter procedure 03/20/2024 4:00 PM EST Office Visit [facility] [address] [facility] [address] [phone] Darwin Starr, [address] [facility] [place] [address] [facility] OB Start: 03-19-2024 End: 03-19-2024 ambulatory 03/19/2024 4:00 PM EST Treatment [facility] PT [address] [facility] [address] [place] [address] Anitra Ricci, HELPDESK ANALYST [facility] PT Start: 03-13-2024 End: 03-13-2024 ambulatory 03/13/2024 4:30 PM EST Treatment [facility] PT [address] [place] [address] Zhen Burgess, PT [address] [place] [address] [facility] PT Start: 03-11-2024 End: 03-11-2024 ambulatory [facility] PT Comment on above: Arrived Start: 03-06-2024 End: 03-06-2024 ambulatory [facility] PT Start: 03-04-2024 End: 03-04-2024 ambulatory 03/04/2024 9:00 AM EST Treatment [facility] PT [address] [facility] [address] [place] [address] Arun Hernadez, HELPDESK ANALYST [facility] PT Start: 02-29-2024 End: 02-29-2024 ambulatory [facility] PT Comment on above: Arrived Start: 02-27-2024 End: 02-27-2024 ambulatory [facility] PT Comment on above: Arrived Start: 02-21-2024 End: 02-21-2024 ambulatory 02/21/2024 4:30 PM EDT Treatment [facility] PT [address] [facility] [place] [address] Anitra Ricci, HELPDESK ANALYST [facility] PT Start: 02-14-2024 End: 02-14-2024 ambulatory [facility] PT Start: 02-13-2024 End: 02-13-2024 Patient encounter procedure Cardiology Comment on above: Dx: Syncope, unspecified syncope type [R 55] Start: 02-13-2024 End: 02-13-2024 ambulatory 02/13/2024 2:00 PM EDT Results Only Cardiology [address] [place] [address] Dx: Syncope, unspecified syncope type [R55] Cardiology [...] EDT Office Visit [facility] [address] [place] [phone] Darwin Starr, DO [address] [place] [address] [facility] Start: 01-09-2024 End: 01-09-2024 Patient encounter procedure 01/09/2024 4:00 PM EDT Office Visit [facility] [address] [facility] [address] [place] [id number] Giovani Hagen MD [address] [facility] [address] [place] [address] [facility] Start: 01-09-2024 End: 01-08-2025 [...] Vaccine ( season) Covid-19 Vaccine ( season) [facility] Start: 12-24-2023 Covid-19 Vaccine ( season) Covid-19 Vaccine ( season) [facility] Start: 12-24-2023 Influenza vaccination Influenza Vaccine (#1) [facility] Start: 12-19-2023 End: 12-19-2023 ambulatory 12/19/2023 2:15 PM EDT Results Only Cardiology [address] [place] [address] Exertional Syncope. Referring: Dr. Shilo Dillon Cardiology Comment on above: Exertional Syncope. Referring: Dr. Shilo Dillon Start: 12-19-2023 End: 12-19-2023 Patient encounter procedure Cardiology Comment on above: Exertional Syncope. Referring: Dr. Shilo Dillon Start: 04-24-2023 Behavioral Health Screening Behavioral Health Screening [facility] Start: 12-23-2022 Covid-19 Vaccine () Covid-19 Vaccine () [facility] Start: 12-23-2022 Influenza vaccination [facility] Start: 05-13-2022 [facility] Start: 04-24-2022 DEPRESSION ASSESSMENT DEPRESSION ASSESSMENT [facility] Start: 12-28-2021 COVID-19 VACCINE (4 - Booster for Pfizer series) COVID-19 VACCINE (4 - Booster for Pfizer series) [facility] Start: 12-28-2021 COVID-19 VACCINE (4 - Pfizer series) COVID-19 VACCINE (4 - Pfizer series) [facility] Start: 12-23-2021 Influenza vaccination INFLUENZA (#1) [facility] Start: 02-06-2020 Urine microalbumin profile DTaP,Tdap,Td Vaccine (6 - Td or Tdap) [facility] Start: 2018 HPV TESTING HPV TESTING [facility] Start: 2009 PAP TESTING PAP TESTING [facility] Start: 2009 Screening for malignant neoplasm of cervix Cervical Cancer Screening [facility] Start: 09-29-2007 Urine microalbumin profile DTAP,TDAP,TD (1 - Tdap) [facility] Start: 11-30-2006 HPV Vaccine (2 - 3-dose series) HPV Vaccine (2 - 3-dose series) [facility] Start: 2006 Anxiety Screening Anxiety Screening [facility] Start: 2006 Depression Screening Depression Screening [facility] Start: 2006 HEPATITIS C SCREENING HEPATITIS C SCREENING [facility] Start: 2006 Hepatitis C screening Hepatitis C Screening [facility] Start: 2006 HIV SCREENING HIV SCREENING [facility] Start: 2006 HIV screening HIV Screening [facility] Start: 1988 HEPATITIS B (1 of 3 - 3-dose series) HEPATITIS B (1 of 3 - 3-dose series) [facility] Actin smooth muscle IgG Ab [Units/volume] in Serum [facility] End: 10-09-2025 [facility]ULT [place] [facility]ULT [place] [facility] Endoscopy Routine Pelvic floor dysfunction Chronic constipation 1 Occurrences starting 10/09/2024 until 10/09/2025 [facility] Work Phone: Comment on above: 1 Occurrences starting 10/09/2024 until 10/09/2025 ADULT [place] ANORECTAL MANOMETRY ADULT [place] ANORECTAL MANOMETRY Endoscopy Routine Pelvic floor dysfunction Chronic constipation 10/15/2024 [facility] Work Phone: Alpha 1 antitrypsin [Mass/volume] in Serum or Plasma [facility] Alpha 1 antitrypsin phenotyping [Identifier] in Serum or Plasma by Immunofixation [facility] Ceruloplasmin [Mass/volume] in Serum or Plasma [facility] CHLAMYDIA TRACHOMATI S (GENITO/STI) CHLAMYDIA TRACHOMATIS (GENITO/STI) Lab Routine Pain in female genitalia on intercourse Cystitis Ordered: 06/25/2024 [employer] Comment on above: Ordered: 06/25/2024 End: 05-23-2024 CLOSTRIDIUM DIFFICILE TOXIN BY EIA [facility] Comment on above: ONCE for 1 [...] steatohepatitis) 1 Occurrences starting 05/14/2024 until 05/14/2025 [facility] Work Phone: Comment on above: 1 Occurrences starting 05/14/2024 until 05/14/2025 Cytology Cervical or vaginal smear or scraping study Pap Smear Pathology and Cytology Routine Well woman exam with routine gynecological exam Ordered: 03/20/2024 [employer] Work Phone: Comment on above: Ordered: 03/20/2024 [...] 09/14/2022 ENTERIC BACTERIAL PA BELEM BY PCR [facility] Work Phone: Comment on above: Release Upon Ordering for 1 Occurrences starting 05/22/2024 End: 04-26-2025 Flexible sigmoidoscopy study COLONOSCOPY DIAGNOSTIC Endoscopy Routine BRBPR (bright red blood per rectum) 1 Occurrences starting 04/26/2024 until 04/26/2025 [facility] Comment on above: 1 Occurrences starting 04/26/2024 until 04/26/2025 Hepatitis A virus Ab [Presence] in Serum by Immunoassay [facility] HFE gene mutations f ound [Identifier] in Blood or Tissue by Molecular genetics method Nominal [facility] Homogenous nuclear A b pattern [Titer] in Serum [facility] Human papilloma viru s DNA [Presence] in Unspecified specimen by Probe with amplification HPV DNA probe, amplified Microbiology Routine Well woman exam with routine gynecological exam Ordered: 03/20/2024 [facility] Comment on above: Ordered: 03/20/2024 IgG [Mass/volume] in Serum or Plasma [facility] Lipoprotein a [Moles/volume] in Serum or Plasma [facility] Liver ultrasound attenuation by transient elastography DDI VIBRATION CONTROLLED TRANSIENT ELASTOGRAPHY (VCTE) Endoscopy Routine Elevated LFTs Ordered: 04/26/2024 [facility] Comment on above: Ordered: 04/26/2024 Mitochondria M2 IgG Ab [Units/volume] in Serum [facility] Neisseria gonorrhoea e DNA [Presence] in Unspecified specimen by SHEILA with probe detection Neisseria gonorrhea DNA probe, direct Lab Routine Pain in female genitalia on intercourse Cystitis Ordered: 06/25/2024 [facility] Comment on above: Ordered: 06/25/2024 Nuclear Ab [Titer] i n [facility] OUTSIDE VENDOR CARDI AC OUTPATIENT EXTENDED RHYTHM RECORDING (WITHOUT TELEMETRY) OUTSIDE VENDOR CARDIAC OUTPATIENT EXTENDED RHYTHM RECORDING (WITHOUT TELEMETRY) Holter Routine Syncope, unspecified syncope type Ordered: 12/19/2023 [facility] Comment on above: Ordered: 12/19/2023 Patient Education Depression in adults - Discharge instructions [facility] [place] Instructions [facility] Work Phone: Patient referral [facility] Work Phone: End: 12-18-2024 STRESS ECHO TREADMILL STRESS ECHO TREADMILL Cardiology Routine Syncope, unspecified syncope type 1 Occurrences starting 12/19/2023 until 12/18/2024 [facility] Work Phone: Comment on above: 1 Occurrences starting 12/19/2023 until 12/18/2024 SURESWAB(R) ADVANCED VAGINITIS PLUS, TMA SURESWAB(R) ADVANCED VAGINITIS PLUS, TMA Pathology and Cytology Routine Pain in female genitalia on intercourse Cystitis Ordered: 06/25/2024 [facility] [employer] Work Phone: Comment on above: Ordered: 06/25/2024 SURGICAL PATHOLOGY [facility] Comment on above: Release Upon Ordering [...] Chronic idiopathic constipation 07/10/2024 11:30 AM EDT [facility] Work Phone: End: 11-08-2025 XR Abdomen Supine and Upright XR ABDOMEN 1V SUPINE Radiology Routine Pelvic floor dysfunction Chronic constipation 3x per week for 3 Occurrences starting 10/09/2024 until 11/08/2025 [facility] Comment on above: 3x per week for 3 Occurrences starting 0 10/09/2024 until 11/08/2025 [facility] Immun[facility] Date Immunization Notes Care Provider [facility] 09-06-2024 tetanus toxoid, redu rolanda diphtheria toxoid, and acellular pertussis vaccine, adsorbed Giovani Hagen MD Work Phone: [facility] 11-02-2021 SARS-CoV-2 mRNA (scieaqkfyok-smry-tuxpk se) vaccine Madhuri MISHRA [facility] 04-29-2021 SARS-CoV-2 (COVID-19 ) mRNA BNT-162b2 vax Madhuri MISHRA [facility] 03-03-2021 SARS-CoV-2 (COVID-19 ) mRNA BNT-162b2 vax Madhuri MISHRA [facility] Comment on above: Result Comment: 2022: TPVAL 02-09-2021 influenza virus vaccine, unspecified formulation Madhuri MISHRA [facility] 02-09-2021 influenza, injectabl e, quadrivalent, preservative free Zhen Burgess PT Work Phone: [facility] 03-16-2020 influenza virus vaccine, unspecified formulation Madhuri MISHRA [facility] 03-16-2020 Influenza, injectabl e, Madin [place] Canine Kidney, preservative free, quadrivalent Zhen Blackston PT Work Phone: [facility] 01-08-2018 influenza virus vaccine, unspecified formulation Madhuri MISHRA [facility] 01-08-2018 influenza, injectabl e, quadrivalent, contains preservative Zhen Blackston PT Work Phone: [facility] 01-08-2018 influenza, injectabl e, quadrivalent, preservative free Zhen Blackston PT Work Phone: [facility] 02-01-2017 influenza virus vaccine, unspecified formulation Madhuri MISHRA [facility] 02-01-2017 Influenza, injectabl e, Madin [place] Canine Kidney, preservative free, quadrivalent Zhen Blackston PT Work Phone: [facility] 03-25-2016 influenza virus vaccine, unspecified formulation Madhuri MISHRA [facility] 03-25-2016 influenza, injectabl e, quadrivalent, preservative free Zhen Blackston PT Work Phone: [facility] 02-05-2010 tetanus toxoid, redu rolanda diphtheria toxoid, and acellular pertussis vaccine, adsorbed Madhuri MISHRA [facility] 01-05-2007 hepatitis B vaccine, pediatric or pediatric/adolescent dosage Madhuri MISHRA [facility] 11-02-2006 hepatitis B vaccine, pediatric or pediatric/adolescent dosage Madhuri MISHRA [facility] 11-02-2006 HPV, unspecified formulation Madhuricecille MISHRA [facility] 11-02-2006 human papilloma viru s vaccine, quadrivalent Zhen Burgess PT Work Phone: [facility] 11-02-2006 meningococcal ACWY vaccine, unspecified formulation Madhuri MISHRA [facility] 11-02-2006 meningococcal polysaccharide (groups A, C, Y and W-135) diphtheria toxoid conjugate vaccine (MCV4P) Zhen Lupe PT Work Phone: [facility] 02-20-1998 hepatitis B vaccine, pediatric or pediatric/adolescent dosage Madhuri MISHRA [facility] 12-28-1993 diphtheria, tetanus toxoids and pertussis vaccine Zhen Burgess PT Work Phone: [facility] 12-07-1992 diphtheria, tetanus toxoids and pertussis vaccine Zhen Burgess PT Work Phone: [facility] 12-07-1992 measles, mumps and rubella virus vaccine Madhuricecille MISHRA [facility] 12-07-1992 trivalent poliovirus vaccine, live, oral Zhen Burgess PT Work Phone: [facility] 06-09-1992 diphtheria, tetanus toxoids and pertussis vaccine Zhen Burgess PT Work Phone: [facility] 06-09-1992 measles, mumps and rubella virus vaccine Madhuri MISHRA [facility] 06-09-1992 trivalent poliovirus vaccine, live, oral Zhen Valentinxavi PT Work Phone: [facility] 10-31-1990 varicella virus vaccine Zi MISHRA [facility] 06-20-1990 diphtheria, tetanus toxoids and pertussis vaccine Zhen Burgess PT Work Phone: [facility] 05-21-1990 trivalent poliovirus vaccine, live, oral Zhen Burgess PT Work Phone: [facility] 01-10-1989 trivalent poliovirus vaccine, live, oral Zhen Burgess PT Work Phone: [facility] NEGATED: Highlighted row has not occurred!05-01-2019 influenza virus vaccine, live, attenuated, for intranasal use Madhuri MISHRA [facility] NEGATED: Highlighted row has not occurred!04-03-2019 influenza virus vaccine, live, attenuated, for intranasal use Madhuri MISHRA [facility] Payers Date Payer Category Payer Self-pay [id number] 2020 Private Health Insurance [id number] 2020 Unknown [id number]. 1.13.159.2.7 .[id number] 1988 Unknown [id number] 2.16.840.1.413373.3.579.2.1 82 1988 Unknown [id number] 2.16.840.1.890589.3.579.2.5 93 1988 Unknown [id number] 2.16.840.1.374127.3.579.2.5 93 1988 Unknown [id number] 2.16.840.1.551351.3.579.2.5 93 1988 Unknown [id number] 2.16.840.1.248598.3.579.2.5 93 1988 Unknown [id number] 2.16.840.1.969608.3.579.2.5 93 1988 Unknown [id number] 2.16.840.1.180300.3.579.2.5 93 1988 Unknown [id number] 2.16.840.1.458975.3.579.2.5 93 1988 Unknown [id number] 2.16.840.1.090509.3.579.2.5 93 1988 Unknown [id number] 2.16.840.1.500384.3.579.2.5 93 1988 Unknown [id number] 2.16.840.1.933392.3.579.2.5 93 1988 Unknown [id number] 2.16.840.1.849250.3.579.2.5 93 1988 Unknown [id number] 2.16.840.1.998627.3.579.2.5 93 1988 Unknown [id number] 2.16.840.1.430172.3.579.2.5 93 1988 Unknown [id number] 2.16.840.1.753227.3.579.2.1 77 1988 Unknown [id number] 2.16.840.1.333033.3.579.2.7 27 1988 Unknown [id number] 2.16.840.1.622646.3.579.2.7 27 1988 Unknown [id number] 2.16.840.1.533649.3.579.2.1 259 1988 Unknown [id number] 2.16.840.1.392536.3.579.2.1 259 1988 Unknown [id number] 2.16.840.1.436158.3.579.2.1 259 1988 Unknown [id number] 2.16.840.1.436479.3.579.2.1 259 1988 Unknown [id number] 2.16.840.1.129678.3.579.2.1 259 1988 Unknown [id number] 2.16.840.1.087855.3.579.2.1 259 1988 Unknown [id number] 2.16.840.1.293954.3.579.2.1 259 1988 Unknown [id number] 2.16.840.1.492442.3.579.2.1 259 1988 Unknown [id number] 2.16.840.1.899884.3.579.2.1 259 1988 Unknown [id number] 2.16.840.1.025412.3.579.2.1 259 1988 Unknown [id number] 2.840.1.052882.3.579.2.1 259 1988 Unknown [id number] 2.16.840.1.355921.3.579.2.1 259 1988 Unknown [id number] 2.16840.1.843806.3.579.2.1 259 1988 Unknown [id number] 2.16.840.1.061958.3.579.2.1 259 1988 Unknown [id number] 2.16840.1.594083.3.579.2.1 259 1988 Unknown [id number] 2.16.840.1.412369.3.579.2.1 259 1988 Unknown [id number] 2.16.840.1.744066.3.579.2.1 259 1988 Unknown [id number] 2.16.840.1.833159.3.579.2.1 259 1988 Unknown [id number] 2.16.840.1.115468.3.579.2.1 259 1988 Unknown [id number] 2.16.840.1.433656.3.579.2.1 259 1988 Unknown [id number] 2.16.840.1.995778.3.579.2.1 259 1988 Unknown [id number] 2.16.840.1.139561.3.579.2.1 259 1988 Unknown [id number] 2.16840.1.206901.3.579.2.1 259 1988 Unknown [id number] 2.16.840.1.309608.3.579.2.1 259 1988 Unknown [id number] 2.16840.1.524733.3.579.2.1 259 1988 Unknown [id number] 2.840.1.986817.3.579.2.1 259 1988 Unknown [id number] 2.840.1.484251.3.579.2.1 259 1988 Unknown [id number] 2.16840.1.868714.3.579.2.1 259 1988 Unknown [id number] 2.16840.1.994804.3.579.2.1 259 1988 Unknown [id number] 2.16840.1.542668.3.579.2.1 259 1988 Unknown [id number] 2.16840.1.196710.3.579.2.1 259 1988 Unknown [id number] 2.16840.1.772947.3.579.2.1 259 1988 Unknown [id number] 2.16840.1.097358.3.579.2.1 259 1988 Unknown [id number] 2.16840.1.428520.3.579.2.1 259 1988 Unknown [id number] 2.16840.1.275139.3.579.2.1 259 1988 Unknown [id number] 2.16840.1.185686.3.579.2.1 259 1988 Unknown [id number] 2.16.840.1.232263.3.579.2.1 259 1988 Unknown [id number] 2.16.840.1.806199.3.579.2.1 259 1988 Unknown [id number] 2.16.840.1.015724.3.579.2.1 259 1988 Unknown [id number] 2.16.840.1.559035.3.579.2.1 259 1988 Unknown [id number] 2.16.840.1.927285.3.579.2.1 259 1988 Unknown [id number] 2.16.840.1.685228.3.579.2.1 259 1988 Unknown [id number] 2.16.840.1.649069.3.579.2.1 259 1988 Unknown [id number] 2.16.840.1.120244.3.579.2.1 259 1988 Unknown [id number] 2.16.840.1.879396.3.579.2.1 259 1959 Unknown [id number] Unknown [facility] [id number] Unknown [id number] 2.16.840.1.072303.3.579.2.5 31 Social History Date Type Detail Facility Tobacco smoking stat us INIS Unknown if ever smoked [facility] Work Phone: Start: 1990 Sex Assigned At Female [facility] Start: 03-28-2019 End: 05-27-2022 Tobacco smoking status INIS Never smoked tobacco [facility] Start: 05-27-2022 End: 10-10-2024 Tobacco use and exposure Smokeless tobacco non-user [facility] Start: 05-27-2022 End: 10-10-2024 Alcohol intake Current drinker of alcohol (finding) [facility] Start: 03-28-2019 Alcohol Comment socially [facility] Start: 1990 Sex Assigned At Not on file [facility] Start: 11-02-2022 End: 05-09-2024 Sex Assigned At [facility] Start: 06-29-2022 End: 10-10-2024 Tobacco smoking status Ex-smoker (finding) [facility] Tobacco smoking status Never [facility] Start: 11-02-2022 End: 05-09-2024 History of Social function [facility] Start: 06-08-2021 Gender identity Identifies as female gender (finding) [facility] Start: 11-16-2021 End: 11-26-2021 Exposure to SARS-CoV-2 (event) Not sure [facility] Start: 08-17-2024 History of tobacco use Current smoker [facility] Within the last year , have you been afraid of your partner or ex-partner? No [facility] Do you belong to any clubs or organizations such as scientologist groups, unions, fraternal or athletic groups, or [...] [facility] Start: 08-19-2024 Sex Female (finding) [facility] History of tobacco use Cigarette Smoker [facility] Goals Date Patient Goal Desired Activity /State Personal health goal Personal health goal Functional Status Date Assessment Result Facility 10-08-2024 Patient Health Quest ionnaire 2 item (PHQ-2) [Reported] [facility] 10-08-2024 PHQ-9 quick depressi on assessment panel [Reported.PHQ] [facility] 09-25-2024 Patient Health Quest ionnaire 2 item (PHQ-2) [Reported] [facility] 09-25-2024 PHQ-9 quick depressi on assessment panel [Reported.PHQ] [facility] 09-17-2024 Patient Health Quest ionnaire 2 item (PHQ-2) [Reported] [facility] 09-02-2024 Patient Health Quest ionnaire 2 item (PHQ-2) [Reported] [facility] 08-19-2024 Functional status Patient at Baseline [facility] Work Phone: 12-28-2023 Functional Status N/A [facility] 06-30-2022 Functional Status N/A [facility] Mental Status Date Assessment Result Facility 08-19-2024 Cognitive function Cognitive Sta tus Patient at Baseline [facility] Work Phone: Clinical Notes 05-03-2022 to 10-30-2024 Telephone Encounter - VINH Roque - 10/30/2024 3:35 PM EDTTelephone Encounter - VINH Roque - 10/30/2024 3:35 PM EDTTelephone Encounter - BALDO STRONG - 10/30/2024 1:16 PM EDT Note Date & Type Note Facility 10-30-2024 Telephone encounter Note Refill declined. [facility] 10-30-2024 Miscellaneous Notes Refill declined. OV 10/08/24 Looks to be discontinued on 06/19/24 documented in this encounter [facility] 10-30-2024 Telephone encounter Note OV 10/08/24 Looks to be discontinued on 06/19/24 [facility] 10-23-2024 History of Present illness Narrative Radiology Service Progress Note PATIENT NAME: Orion Harper DATE OF SERVICE: October 23, 2024 TIME: 2:10 PM PATIENT IDENTITY VERIFICATION COMPLETED USING TWO (2) IDENTIFIERS: Name and Date of confirmed by patient verbally. FALL SCREENING: Has the patient had 2 falls in the last year or 1 fall with injury or currently using an Ambulatory Assistive Device (Walker, Cane, Wheelchair, Crutches, etc.)? No PATIENT GENDER DATA: Assigned female at . status: : No status: NO. PATIENT RELEVANT IMPLANT DATA REVIEWED: Not Applicable PATIENT PRESENTS WITH AN IMPLANTABLE OR ATTACHED LEATHER GRAINER: No RADIOLOGY DEPARTMENT: General X-ray: Exam(s) Completed: Abdomen X-Ray: Abdomen PERIPHERAL IV DATA: Not applicable SIGNED BY: RT Xavier(Aroldo) October 23, 2024 2:10 PM documented in this encounter [facility] 10-23-2024 Note HNO ID: [id number] Author: ANNITA CAMP RT(Aroldo) Service: ? Author Type: Technologist Type: Progress Notes Filed: 10/23/2024 14:10 Note Text: Radiology Service Progress Note PATIENT NAME: Orion Harper DATE OF SERVICE: October 23, 2024 TIME: 2:10 PM PATIENT IDENTITY VERIFICATION COMPLETED USING TWO (2) IDENTIFIERS: Name and Date of confirmed by patient verbally. FALL SCREENING: Has the patient had 2 falls in the last year or 1 fall with injury or currently using an Ambulatory Assistive Device (Walker, Cane, Wheelchair, Crutches, etc.)? No PATIENT GENDER DATA: Assigned female at . status: : No status: NO. PATIENT RELEVANT IMPLANT DATA REVIEWED: Not Applicable PATIENT PRESENTS WITH AN IMPLANTABLE OR ATTACHED LEATHER GRAINER: No RADIOLOGY DEPARTMENT: General X-ray: Exam(s) Completed: Abdomen X-Ray: Abdomen PERIPHERAL IV DATA: Not applicable SIGNED BY: RT Xavier(R) October 23, 2024 2:10 PM [facility] 10-15-2024 Note HNO ID: [id number] Author: MARIO HARPER APRN.CNP Service: ? Author Type: Nurse Practitioner Type: Progress Notes Filed: 10/15/2024 11:06 Note Text: SENSITIVE EXAMINATION CONSENT: The sensitive examination was discussed with the Patient or Patient's Authorized Migrant Leader. As applicable, any other physician, advance practice provider, medical student, or other health professional student that will be observing or involved in the sensitive examination for educational or training purposes was discussed with the Patient or Authorized Migrant Leader. The Patient or Authorized Migrant Leader has agreed to proceed with the sensitive examination. [facility] 10-15-2024 History of Present illness Narrative SENSITIVE EXAMINATION CONSENT: The sensitive examination was discussed with the Patient or Patient's Authorized Migrant Leader. As applicable, any other physician, advance practice provider, medical student, or other health professional student that will be observing or involved in the sensitive examination for educational or training purposes was discussed with the Patient or Authorized Migrant Leader. The Patient or Authorized Migrant Leader has agreed to proceed with the sensitive examination. documented in this encounter [facility] 10-11-2024 Note HNO ID: [id number] Author: LYDIA ROCK PT, DPT Service: ? Author Type: Physical Therapist Type: Progress Notes Filed: 10/11/2024 15:55 Note Text: Episode Visit Count: 1 Therapist That Will Accept/Oversee The Plan Of Care: Lydia Rock PT, DPT Start of Care Date: 10/11/24 Onset Date: (chronic) Plan of Care Certification Date: 10/11/24 Next Certification Due Date: 01/09/25 Patient Identified by Name and Date of : Yes [facility] SPORTS THERAPY PHYSICAL THERAPY EVALUATION PLAN OF CARE: Assessment: Orionbianca Harper presents with chief complaint of pelvic pain that interferes with bladder function, altered sexual function, bowel function . The patient presents with impairments in coordination, independence in exercise, overall function, range of motion, sensation, stress management, symptom management, and tissue tenderness. PROMIS? (Patient-Reported Outcomes Measurement Information System) scores were reviewed and identified as a rehabilitation concern. Prognosis for therapy is Fair due to: clinical presentation, chronic nature of impairments . Milly presents with complaints of pelvic pain that impacts bowel movements, intercourse, and urinary function. She has been dealing with chronic pelvic pain for a very long time and it is greatly impacting her daily life. Examination findings include significant tightness/tenderness of the pelvic floor muscles, difficulty with relaxation and lengthening, moderate restriction of scar, and poor diaphragmatic breathing. The patient will benefit from skilled therapy services to meet the goals established for this plan of care as noted below. Goals for Episode of Care: established 10/11/24 Patient demonstrates independence and compliance with home exercise program. Patient displays improved range of motion, coordination, and muscle dynamics of pelvic floor as evidenced by the ability to lengthen without paradoxical contraction at least 75% of the time to normalize bladder/bowel function; reduce pelvic pain. Patient displays improved range of motion, coordination, and muscle dynamics of pelvic floor as evidenced by full relaxation post-contraction at least 75% of the time to normalize bowel/bladder function; reduce pelvic pain. Patient reports increased ability to fully empty bladder/bowels at least 75% of the time to normalize bladder/bowel function. Coordinate pelvic floor with thoracic diaphragm during Functional mobility and change in position to decreasing incontinence and/or pain. Patient displays decreased muscle spasms in levator ani, superficial pelvic floor muscles, and periurethral muscles to allow for decreased pain levels, improved bladder/bowel function. Patient to report at least 50% improvement in pain with sexual intercourse. Patient Goals: decrease pain Time Frame for Goals and Treatment : 01/09/25 Planned Interventions, Frequency, and Duration: Current Frequency: 1x/month Duration: Three months Total Number of Visits Planned: 4 Planned Treatment Interventions: Therapeutic exercise (93215), Neuromuscular re-education (27877), Manual therapy (26538), Therapeutic activities (66839), Self-skilled nursing management (46850), Patient/Family/Caregiver Education, Body Mechanics Training PLAN FOR NEXT VISIT: internal manual prn, progress pelvic openers/relaxation, vaginal moisturizers? Patient demonstrates good understanding of plan of care and treatment. The above goals and plan of care were discussed and agreed upon by patient/family. SUBJECTIVE: Pt reports she has been having significant pelvic pain for a long time now and it is primarily during intercourse. Pain is primarily superficial with insertion. No deep pain with thrusting. Pain with orgasm. Patient reports frequent UTIs and takes antibiotics before or after intercourse. Patient reports having urgency symptoms. Difficulty with bowel movements, chronic constipation, recently saw colorectal that referred to PFPT due increased tightness of pelvic floor muscles. Reports that she has hemorrhoids and possible anal fissure. Patient Goals: decrease pain Functional Limitations: bladder function, altered sexual function, bowel function Prior Level of Function: Independent without limitations Relevant History Past Relevant Medical Conditions: Anxiety, Depression, Comments Relevant Medical Conditions Comments: IBS-C, gastroporesis Past Relevant Surgical Conditions: Comments Relevant Surgical Conditions Comments: gallbladder removal, hysterectomy Employment: Unemployed Recreation / Current Exercise: [employer] Home Environment Patient Lives With: Family Intake Information: Prescription present Previous Treatment: Muscle relaxer , Surgery , Steroids Falls Interview: Two or more falls in the last year Aquatic Screen: No Pain: Pain Pain Level: 1 Pain Location: Vulva, Vaginal Description: Burning, Stabbing Frequency: Con (more content not included)... [facility] 10-11-2024 History of Present illness Narrative Images from the original note were not included. Episode Visit Count: 1 Therapist That Will Accept/Oversee The Plan Of Care: Lydia Rock, PT, DPT Start of Care Date: 10/11/24 Onset Date: (chronic) Plan of Care Certification Date: 10/11/24 Next Certification Due Date: 01/09/25 Patient Identified by Name and Date of : Yes REHABILITATION AND SPORTS THERAPY PHYSICAL THERAPY EVALUATION PLAN OF CARE: Assessment: Orionbianca Harper presents with chief complaint of pelvic pain that interferes with bladder function, altered sexual function, bowel function . The patient presents with impairments in coordination, independence in exercise, overall function, range of motion, sensation, stress management, symptom management, and tissue tenderness. PROMIS (Patient-Reported Outcomes Measurement Information System) scores were reviewed and identified as a rehabilitation concern. Prognosis for therapy is Fair due to: clinical presentation, chronic nature of impairments . Milly presents with complaints of pelvic pain that impacts bowel movements, intercourse, and urinary function. She has been dealing with chronic pelvic pain for a very long time and it is greatly impacting her daily life. Examination findings include significant tightness/tenderness of the pelvic floor muscles, difficulty with relaxation and lengthening, moderate restriction of scar, and poor diaphragmatic breathing. The patient will benefit from skilled therapy services to meet the goals established for this plan of care as noted below. Goals for Episode of Care: established 10/11/24 Patient demonstrates independence and compliance with home exercise program. Patient displays improved range of motion, coordination, and muscle dynamics of pelvic floor as evidenced by the ability to lengthen without paradoxical contraction at least 75% of the time to normalize bladder/bowel function; reduce pelvic pain. Patient displays improved range of motion, coordination, and muscle dynamics of pelvic floor as evidenced by full relaxation post-contraction at least 75% of the time to normalize bowel/bladder function; reduce pelvic pain. Patient reports increased ability to fully empty bladder/bowels at least 75% of the time to normalize bladder/bowel function. Coordinate pelvic floor with thoracic diaphragm during Functional mobility and change in position to decreasing incontinence and/or pain. Patient displays decreased muscle spasms in levator ani, superficial pelvic floor muscles, and periurethral muscles to allow for decreased pain levels, improved bladder/bowel function. Patient to report at least 50% improvement in pain with sexual intercourse. Patient Goals: decrease pain Time Frame for Goals and Treatment : 01/09/25 Planned Interventions, Frequency, and Duration: Current Frequency: 1x/month Duration: Three months Total Number of Visits Planned: 4 Planned Treatment Interventions: Therapeutic exercise (39946), Neuromuscular re-education (71664), Manual therapy (73592), Therapeutic activities (71367), Self-skilled nursing management (84584), Patient/Family/Caregiver Education, Body Mechanics Training PLAN FOR NEXT VISIT: internal manual prn, progress pelvic openers/relaxation, vaginal moisturizers? Patient demonstrates good understanding of plan of care and treatment. The above goals and plan of care were discussed and agreed upon by patient/family. SUBJECTIVE: Pt reports she has been having significant pelvic pain for a long time now and it is primarily during intercourse. Pain is primarily superficial with insertion. No deep pain with thrusting. Pain with orgasm. Patient reports frequent UTIs and takes antibiotics before or after intercourse. Patient reports having urgency symptoms. Difficulty with bowel movements, chronic constipation, recently saw colorectal that referred to PFPT due increased tightness of pelvic floor muscles. Reports that she has hemorrhoids and possible anal fissure. Patient Goals: decrease pain Functional Limitations: bladder function, altered sexual function, bowel function Prior Level of Function: Independent without limitations Relevant History Past Relevant Medical Conditions: Anxiety, Depression, Comments Relevant Medical Conditions Comments: IBS-C, gastroporesis Past Relevant Surgical Conditions: Comments Relevant Surgical Conditions Comments: gallbladder removal, hysterectomy Employment: Unemployed Recreation / Current Exercise: [employer] Home Environment Patient Lives With: Family Intake Information: Prescription present Previous Treatment: Muscle relaxer , Surgery , Steroids Falls Interview: Two or more falls in the last year Aquatic Screen: No Pain: Pain Pain Level: 1 Pain Location: Vulva, Vaginal Description: Burning, Stabbing Frequency: Continuous Post Treatment Pain Post Treatment Pain Level: No Change PROMIS Scales 10/11/2024 04/24/2024 Higher is Better Phys Func - T Score 42 (mild dysfunction) Phys Func - Percentile 21 Self-Eff Symptom - T Score 34 (Low) Self-Eff Symptom - Percentile 5 10/11/2024 Lower is Better Pain Interference - T Score 56 (mild) Pain Interference - Percentile 27 T-scores: mean of general population = 50. 5 points is clinically meaningfully difference Percentiles provide an indication of how the patient's score ranks in relation to the general population. Higher percentile rankings indicate better function/quality of life. 50th percentile is the average of the general population and indicates half of respondents had a worse score. OBJECTIVE MEASURES WITH LEVEL OF FUNCTION: Pelvic Floor Menstruation: No Control Method: comments Control Comment: hysterctomy in 2017 Pregnancies: 3 Births: 3 : 3 (all emergency) Aggravates Pain: [place], Orgasm, Urination Pain with penetration: Pain with orgasm, Superficial, Pain with internal medical exam Sexual Health: Reports significant dryness and needs to use significant amount of lubercation for intercourse History of low back pain: Yes History of Hip Pain: No Urinary/Bowel History : Urinary History, Bowel History Difficulty starting stream: Yes slow or intermittent stream: Yes strains to void: Yes Incomplete emptying: Yes Stress Incontinence: Cough, Sneeze, Laughing Post Void Dribble: No Urgency: Yes Frequency of Urgency Episodes: Just with orgasms Frequency of Leaks Secondary to Urge: 50/50 Nocturia (times per night) : some nights (3-4x a week) Daytime Frequency (hours): 3-4x a day Fluid Intake: Other beverage, Water, Pop/Diet Pop, Alcohol Water : 2-3 bottles Pop/Diet Pop : 3-4 day Alcohol : 1-2 liters Other beverage : red bulls Difficulty evacuating / Excessive Straining: Yes Incomplete emptying: Yes Bowel Movement Frequency: irregular; can go 1x a week to multiple times a day Bowel Movement Consistency (Camp) : 1: Seperate hard lumps, like nuts, 2: Sausage-shaped but lumpy, 3: Like a sausage or snake but with cracks on its surface, 4: Like a sausage or snake, smooth and soft, 5: Soft blobs with clear cut edges, 6: Fluffy pieces with ragged edges, a mushy stool, 7: Watery, no solid pieces Bloating / abdominal pain: Yes Rectal Bleeding/history of hemorrhoids: Yes Ability to Control Gas: Yes Decreased warning time: Yes Daily Dietary Fiber/ Food Intake: None Bowel Aides / Supplements: None Pelvic Floor Muscle Assessment Consent for pelvic assessment/testing and treatment: Patient was educated regarding pelvic floor physical therapy assessment/treatment which may include pelvic floor and girdle muscle assessment externally or internally (vaginal or rectal approach)., Patient verbalized consent for the above treatment approaches today. Patient understands they have control of the treatment and an opportunity to stop treatment at any time. Pelvic Floor Muscle Assessment: Muscle Dynamics Contracton Pressure: Moderate squeeze, felt all the way around finger surface Duration of Contraction: >1 to <3 seconds Recruitment of pelvic floor muscles: Uncoordinated Extra-pelvic muscle activity: Holds breath, Gluteals Range of Motion: Decreased Ability to Lengthen pelvic floor: Difficulty at first, but improves with cueing and practice Relaxation Postcontraction: Partial, Delayed, Slow Paradoxical Contraction: No Involuntary Contraction: No Under-activating during contraction : Anterior fibers Non-domenico pelvic floor : No Non-relaxing pelvic floor : Present Breathing Pattern : chest dominant, limited rib mobility Diaphragmatic Breathing : Poor Pelvic Floor Manual Assessment Scar Mobility: mod resstriction of the scar, more centrally External Pelvic Region Tenderness/ Hyperactivity - Trunk: Suprapubic Suprapubic: Bilateral External Pelvic Region Tenderness/ Hyperactivity - Lower Extremity: Adductor Adductor: Bilateral (R>L) Pelvic Floor Tenderness/Hyperactivity: Tested Vaginally in, Pelvic Floor Tenderness/Hyperactivity Comments Tested Vaginally in : Supine/hooklying Levator Ani: Bilateral Bulbocavernosus: Bilateral Superficial transverse perineal: Bilateral Ischiocavernosus: Bilateral Deep transverse perineal: Bilateral Pelvic Floor Tenderness/Hyperactivity Comments: unable to assess past the 2nd layer due to significant tightness/patient discomfort Pelvic Region Sensation: Hypersensitive Education: Education Learning Preferences: Demonstration, Explanation, Performance, Printed Materials Learning/educational needs: Home exercise program, Plan of Care, Lifestyle changes, Health promotion Education Provided: Yes, see treatment interventions for education provided Education Provided To: Patient Education Mode/Type: Demonstration, Explanation/Discussion, Teach Back, Performance, Literature/Printed Materials Response to Education/Teach Back: States/Identifies, Return Demonstration TREATMENT: PT Treatment Interventions: Self-Intermediate Management, Neuromuscular Re-Education Evaluation Neuromuscular Re-Education: 1: 360 breathing; supine 2: SL butterfly stretch Skilled Intervention: Skilled judgment used to assess appropriate program for balance and coordination activity. Provided written instruction for home program to facilitate proper performance and compliance. Correct performance of home program was facilitated with verbal, visual, and tactile cueing. Patient education as noted. Self-Intermediate Management: 1: Patient educated on the anatomy/physiology of the pfm; relationship between the pfm/abdomen/spine/hips 2: Patient educated on 360 breathing, relationship between the pfm and diaphragm, vagus nerve stimulation 3: Patient educated on examination findings, POC, what to expect in future treatment sessions 4: Patient educated on pfm relaxation, clench checks 5: Patient educated on bladder basics, proper voiding interval, sandwhiching irritants with water, common irritants, proper hydration 6: Patient educated on healthy bowel movements, squatty potty mechanics, breathing vs. straining 7: Patient educated on dilator training, what it is, why it may be beneficial, how to perform at home 8: Patient educated on lubrications 9: Patient educated on general genital hygeine Skilled Intervention: provided education as noted Billing * Evaluation Moderate Complexity: 1 Unit Neuromuscular Re-Education Treatment Minutes: 10 Self-Care/Home Management Treatment Minutes: 25 Skilled Treatment Time Minutes (timed and untimed codes): 55 Total Session Time (minutes): 56 Session Start Time : 1445 Session Stop Time : 1541 Lydia Rock, PT, DPT documented in this encounter [facility] 10-10-2024 History of Present illness Narrative Images from the original note were not included. Answers submitted by the patient for this visit: Neurological Problem Questionnaire (Submitted on 10/10/2024) Chief Complaint: Neurologic complaint clumsiness: Yes altered mental status: Yes syncope: No loss of balance: Yes focal sensory loss: No memory loss: No near-syncope: No slurred speech: Yes weakness: Yes focal weakness: Yes Chronicity: chronic Onset: more than 1 month ago Onset quality: gradually Progression since onset: gradually worsening Focality: facial, left-sided abdominal pain: No aura: No back pain: Yes bladder incontinence: No bowel incontinence: No confusion: Yes dizziness: Yes fatigue: No vertigo: No headaches: Yes auditory change: No light-headedness: No nausea: No neck pain: No palpitations: No shortness of breath: No diaphoresis: Yes Treatments tried: acetaminophen, medication, position change Improvement on treatment: no relief Subjective Orionbianca Harper is a 34 y.o. female who presents for left facial numbness, left arm numbness History of Present Illness The patient presents for evaluation of numbness and tingling. She began experiencing tingling sensations in her shoulder and left arm last year, which radiated down to her fingertips. Despite undergoing physical therapy for 6 to 8 weeks, there was no improvement. Recently, she has noticed intermittent tingling on the left side of her face, accompanied by a sensation of pressure and a [id number] feeling against her eardrum. She reports a lack of sensation upon touch, but an awareness of pressure. The numbness is not constant but appears to be progressively worsening. She does not experience any similar symptoms in her leg or right arm. Previous treatments including steroid injections and dry needling have been ineffective. An MRI of her back was conducted, but she has not undergone a nerve conduction test. She experiences headaches at least once or twice a week, often accompanied by confusion and visual disturbances such as seeing stars. She reports no headaches concurrent with the facial numbness. Dizziness is associated with the facial numbness and visual changes. Her vision becomes blurry during these episodes. She has a history of migraines in her youth, which ceased following hormonal changes due to . SOCIAL HISTORY: Tobacco: Previously smoked cigarettes FAMILY HISTORY - No known family history with biological father (living status unknown) - Mother: No reported health issues MEDICATIONS CURRENT MEDS: Celexa 10 mg Oral Citalopram Propranolol 10 mg Oral Albuterol Adderall 10 mg, 30 mg Oral Wellbutrin Clonidine Seroquel Tizanidine PREVIOUS MEDS: Lexapro Reason for Discontinuation: Switched to another medication Phentermine Adipex Review of Systems Constitutional: Positive for diaphoresis. Negative for chills, fatigue and fever. HENT: Negative for tinnitus. Eyes: Negative for photophobia. Respiratory: Negative for shortness of breath. Cardiovascular: Negative for chest pain and palpitations. Gastrointestinal: Negative for abdominal pain, nausea and vomiting. Genitourinary: Negative for frequency. Musculoskeletal: Positive for back pain. Negative for gait problem and neck pain. Neurological: Positive for dizziness, weakness and headaches. Negative for tremors, syncope, light-headedness and numbness. Psychiatric/Behavioral: Positive for confusion. Objective Height 5' 2 , weight 193 lb. Physical Exam Cranial Nerve Examination CN II: Visual borges intact. CN III IV : Extraocular movements intact. CN VII: Facial movements normal and symmetrical. CN XI: Shoulder shrug normal. CN XII: Tongue is midline with normal movements. Motor Examination Strength: Strength 5/5 in upper and lower extremities. Reflexes Deep Tendon Reflexes: Deep tendon reflexes normal. Vital Signs: Blood pressure 122/80. Results Assessment & Plan 1. Numbness and tingling. The symptoms could be attributed to a pinched nerve or peripheral nerve involvement in the arm. The presence of facial involvement necessitates further investigation to rule out any brain-related issues. The possibility of facial involvement due to migraines was also discussed. A brain MRI will be ordered to ensure there are no significant underlying conditions. A nerve conduction test will be conducted on the left arm by Dr. Jatin Cabrera in [place]. A prescription for oxcarbazepine (Trileptal) will be sent to the pharmacy, with instructions to take half a pill at bedtime for a week, then increase to one full tablet. 2. Headaches. The headaches could be related to the numbness and tingling, potentially indicating an atypical migraine. The patient reports experiencing headaches at least once or twice a week, sometimes accompanied by confusion and visual disturbances. The prescribed oxcarbazepine (Trileptal) will also help manage these headaches. This was discussed with patient all questions answered. Total time 45 minutes spent reviewing records, performing medically appropriate exam, counseling , education, ordering medication, tests, and/or procedures, documenting health information into the health record, communicating results to the patient, and coordinating care. This clinical note was created utilizing [employer] documentation system. All information has been thoroughly reviewed, corrected as necessary, and authenticated by the provider to ensure accuracy and completeness. On occasion, [employer] documentation system erroneously drops words or replaces a spoken word with a similar sounding word. Please notify with any questions or concerns regarding this clinical note. documented in this encounter [facility] 10-09-2024 Instructions Mario Harper APRN.[facility] - 10/09/2024 1:35 PM EDT We discussed your concerns about hemorrhoids, constipation, and pelvic pain: - You have internal hemorrhoids that are mildly to moderately enlarged, but no external hemorrhoids or anal fissures were found during today s exam. There is some irritation and cracking of the skin near the anal area, which may be causing discomfort. - Apply Desitin or zinc oxide to the irritated area as needed to help repair the skin. - Hemorrhoid surgery is not recommended at this time, as it is unlikely to address your symptoms effectively. - Your symptoms, including constipation and pelvic pain, are likely related to pelvic floor dysfunction and colonic motility issues. - Pelvic floor dysfunction occurs when the muscles in the pelvic area are too tight or not coordinating properly, which can contribute to constipation, incomplete bowel movements, and pain. - Colonic motility dysfunction refers to the colon not moving stool effectively, which may also be contributing to your symptoms. - To address constipation: - Start taking Miralax (available over the counter) daily. Begin with one capful per day to help keep your bowels moving regularly. You may experience looser stools initially as your system adjusts. - Avoid fiber supplements like Benefiber or Metamucil, as they may worsen your symptoms. We discussed diagnostic tests to better understand your condition: - Sitzmarker Study: This test will evaluate how well your colon is functioning. - Instructions: Take the provided capsules on a Monday. The following week, get x-rays on Monday, Monday, and Monday to track the movement of the capsules through your colon. - Do not take Miralax or any other laxatives during the week of the test. You can resume Miralax after the x-rays are completed. - You may complete this test at the [facility] location or another convenient location. - Manometry Test: This test will measure the strength and coordination of your pelvic floor muscles. - Your manometry test is scheduled for next Monday at 10:30 AM at this office. We discussed treatment options for pelvic floor dysfunction: - I have placed an order for pelvic floor physical therapy. - This therapy will focus on relaxing and coordinating your pelvic floor muscles to improve bowel movements and reduce pain. - Your closest [facility] location for pelvic floor physical therapy is in [place]. If you find a local pelvic casino floor person outside of the [facility] system, let me know, and I can send the order to them. Follow-Up: - Attend your manometry test next Monday at 10:30 AM. - Complete the Sitzmarker study at your convenience. - Begin pelvic floor physical therapy once scheduled. - Continue using Miralax daily and apply Desitin or zinc oxide to irritated skin as needed. If you have any questions or concerns, please contact our office. documented in this encounter [facility] 10-09-2024 Note HNO ID: [id number] Author: MARIO HARPER APRN.ISABEL Service: ? Author Type: Nurse Practitioner Type: Progress Notes Filed: 10/09/2024 14:03 Note Text: COLORECTAL SURGERY October 09, 2024 Orion Harper 34 year old This consult was requested by Dr. Winn and my final recommendations will be communicated to the requesting health care provider by way of the shared medical record for internal providers or letter via the [place] Postal Service for external providers. Recording using [employer] software for draft documentation of the visit was discussed with the patient/authorized logistics service representative; all questions welcomed and answered. Patient/authorized logistics service representative agreed to proceed Chief Complaint: hemorrhoids, rectal pain History of Present Illness: HPI: The patient is a 34-year-old female with constipation-predominant irritable bowel syndrome (IBS-C), diverticulitis, and liver problems, presenting for evaluation of chronic hemorrhoidal symptoms, including pain and rectal bleeding. She reports that her hemorrhoidal symptoms began during her first approximately 12 years ago and have progressively worsened with each of her three pregnancies, all delivered via . She describes ongoing anal pain and daily rectal bleeding, which have recently intensified to the point that she cannot sit comfortably without shifting her weight to one side. She also experiences a sensation of something protruding externally during bowel movements, which she typically needs to push back in, and notes that she must wipe excessively after bowel movements to get clean. Her bowel movements occur infrequently, averaging once per week (approximately four times per month). She describes her stools as loose when they do occur, with episodes of rapid evacuation, particularly after consuming fast, greasy foods. Despite the loose consistency, she does not feel fully emptied after defecation and reports a need to strain at the end of bowel movements. She also experiences significant abdominal bloating during the prolonged intervals between bowel movements. She has tried Linzess in the past for constipation but discontinued it due to bothersome diarrhea and overall intolerance. She has also attempted fiber supplements but dislikes the gritty sensation they leave in her mouth and has not used Miralax consistently. She avoids foods with seeds to help manage her diverticulitis. She has not been using hemorrhoid creams or other topical treatments recently. Her history is notable for multiple hospitalizations for diverticulitis, though she has not required hospitalization since 2022 and now manages recurrences with antibiotics prescribed over the phone. She has undergone several colonoscopies, including one in April with Dr. Soriano, for evaluation of her liver and digestive issues. She has also been diagnosed with recurrent urinary tract infections, for which she maintains a standing prescription for antibiotics. Additionally, she reports chronic pelvic pain and dyspareunia, for which she is scheduled to see a pelvic specialist next month. She expresses that her symptoms have been longstanding and have significantly impacted her quality of life. April 2024- internal hemorrhoids, diverticulosis PAST MEDICAL HISTORY Diagnosis Date Asthma (HCC) Bipolar disorder (HCC) Diverticulitis 2017 Hypertension IBS (irritable bowel syndrome) Syncope PAST SURGICAL HISTORY Procedure Laterality Date ANKLE SURGERY HX SECTION HX x3 COLONOSCOPY 04/2018 IBS-c COLONOSCOPY SCREENING 2019 EGD DIAGNOSTIC 2022 HYSTERECTOMY HX HYSTEROSCOPY, DIAGNOSTIC (SEPARATE L'SCOPE CHOLECYSTECTOMY 2022 Current Outpatient Medications Medication Sig Dispense Refill metoprolol succinate ER (TOPROL XL) 25 mg 24 hr tablet Take 1 tablet by mouth once daily. 30 tablet 2 montelukast (SINGULAIR) 10 mg tablet Take 10 [...] No current facility-administered medications for this visit. ALLERGIES Allergen Reactions Iodinated Contrast * Anaphylaxis, Hives, Itching Cat Dander Anaphylaxis Iv Contrast [Iodine] Swelling, Itching Omnipaque 300: Patient experienced itching on her neck and left side of her face. Also, pt complained of tongue feeling itchy and feels like something is stuck in her throat . Patient received diphenhydramine (Benadryl) Omnipaque [Iohexol] Itching Tree Nuts Anaphylaxis FAMILY HISTORY Problem Relation Age of Onset other (heart murmur) (more content not included)... [facility] 10-09-2024 History of Present illness Narrative COLORECTAL SURGERY October 09, 2024 Orion Harper 34 year old This consult was requested by Dr. Winn and my final recommendations will be communicated to the requesting health care provider by way of the shared medical record for internal providers or letter via the [employer] Postal Service for external providers. Recording using [employer] software for draft documentation of the visit was discussed with the patient/authorized logistics service representative; all questions welcomed and answered. Patient/authorized logistics service representative agreed to proceed Chief Complaint: hemorrhoids, rectal pain History of Present Illness: HPI: The patient is a 34-year-old female with constipation-predominant irritable bowel syndrome (IBS-C), diverticulitis, and liver problems, presenting for evaluation of chronic hemorrhoidal symptoms, including pain and rectal bleeding. She reports that her hemorrhoidal symptoms began during her first approximately 12 years ago and have progressively worsened with each of her three pregnancies, all delivered via . She describes ongoing anal pain and daily rectal bleeding, which have recently intensified to the point that she cannot sit comfortably without shifting her weight to one side. She also experiences a sensation of something protruding externally during bowel movements, which she typically needs to push back in, and notes that she must wipe excessively after bowel movements to get clean. Her bowel movements occur infrequently, averaging once per week (approximately four times per month). She describes her stools as loose when they do occur, with episodes of rapid evacuation, particularly after consuming fast, greasy foods. Despite the loose consistency, she does not feel fully emptied after defecation and reports a need to strain at the end of bowel movements. She also experiences significant abdominal bloating during the prolonged intervals between bowel movements. She has tried Linzess in the past for constipation but discontinued it due to bothersome diarrhea and overall intolerance. She has also attempted fiber supplements but dislikes the gritty sensation they leave in her mouth and has not used Miralax consistently. She avoids foods with seeds to help manage her diverticulitis. She has not been using hemorrhoid creams or other topical treatments recently. Her history is notable for multiple hospitalizations for diverticulitis, though she has not required hospitalization since 2022 and now manages recurrences with antibiotics prescribed over the phone. She has undergone several colonoscopies, including one in April with Dr. Soriano, for evaluation of her liver and digestive issues. She has also been diagnosed with recurrent urinary tract infections, for which she maintains a standing prescription for antibiotics. Additionally, she reports chronic pelvic pain and dyspareunia, for which she is scheduled to see a pelvic specialist next month. She expresses that her symptoms have been longstanding and have significantly impacted her quality of life. April 2024- internal hemorrhoids, diverticulosis PAST MEDICAL HISTORY Diagnosis Date Asthma (HCC) Bipolar disorder (HCC) Diverticulitis 2018 Hypertension IBS (irritable bowel syndrome) Syncope PAST SURGICAL HISTORY Procedure Laterality Date ANKLE SURGERY HX SECTION HX x3 COLONOSCOPY 04/2018 IBS-c COLONOSCOPY SCREENING 2019 EGD DIAGNOSTIC 2022 HYSTERECTOMY HX HYSTEROSCOPY, DIAGNOSTIC (SEPARATE L'SCOPE CHOLECYSTECTOMY 2022 Current Outpatient Medications Medication Sig Dispense Refill metoprolol succinate ER (TOPROL XL) 25 mg 24 hr tablet Take 1 tablet by mouth once daily. 30 tablet 2 montelukast (SINGULAIR) 10 mg tablet Take 10 [...] No current facility-administered medications for this visit. ALLERGIES Allergen Reactions Iodinated Contrast * Anaphylaxis, Hives, Itching Cat Dander Anaphylaxis Iv Contrast [Iodine] Swelling, Itching Omnipaque 300: Patient experienced itching on her neck and left side of her face. Also, pt complained of tongue feeling itchy and feels like something is stuck in her throat . Patient received diphenhydramine (Benadryl) Omnipaque [Iohexol] Itching Tree Nuts Anaphylaxis FAMILY HISTORY Problem Relation Age of Onset other (heart murmur) Brother Colon Cancer Maternal Grandfather started in the kidney other (murmur) Maternal Aunt Social History Tobacco Use Smoking status: Never Smokeless tobacco: Never Vaping Use Vaping status: Never Used Substance Use Topics Alcohol use: Yes Alcohol/week: 4.0 standard drinks of alcohol Types: 2 Cans of beer, 2 Shots of liquor per week Comment: socially Drug use: Never Gastrointestinal: (+) constipation, (+) anal pain, (+) anal bleeding, (+) loose stools, (+) abdominal bloating, (+) sensation of incomplete evacuation, (+) need for excessive wiping Genitourinary: (+) dyspareunia, (-) urinary difficulty (+) frequent UTIs Physical Exam: BP 112/76 Pulse 106 Wt 86.6 kg (191 lb) LMP 05/25/2015 SpO2 99% BMI 33.83 kg/m General Appearance: Well appearing, alert, in no acute distress, well-hydrated, well nourished. and Overweight Abdomen: deferred Anorectal: External exam reveals slightly enlarged external hemorrhoids in RA and RP positions. No anal fissure or concern for perianal abscess/fistula. Digital rectal exam reveals no gross blood or palpable lesions. Pain on R[place]T to levator ani bilaterally Margin Analyst present: Yes Anoscopy: The patient was placed in chest-knee position. After digital exam with a lubricated finger, the scope was easily inserted. Mildly enlarged right posterior and right anterior internal hemorrhoids were noted. Otherwise normal mucosa was noted. Anoscopy completed. The sensitive examination was discussed with the Patient or Patient's Authorized Migrant Leader. As applicable, any other physician, advance practice provider, medical student, or other health professional student that will be observing or involved in the sensitive examination for educational or training purposes was discussed with the Patient or Authorized Migrant Leader. The Patient or Authorized Migrant Leader has agreed to proceed with the sensitive examination. (Sensitive examination includes inspection and/or palpation of the breasts, pelvis, prostate and anorectal regions) Assessment Assessment and Plan: 1. Pelvic floor dysfunction (M62.89) Examination reveals tension and tightness in the levator muscles and pelvic floor, with pain elicited during palpation. No external hemorrhoids or anal fissures observed, but internal hemorrhoids are moderately to mildly enlarged. Patient reports dyspareunia and has a scheduled appointment with a pelvic pain specialist next month. - Scheduled anorectal manometry test for next Monday at 10:30 to assess pelvic floor muscle function. - Ordered Sitzmarker study to evaluate colonic motility; patient instructed to take capsules on a Monday and undergo x-rays on the following Monday, Monday, and Monday at the [facility] location. - Initiated referral for pelvic floor physical therapy; [place] [facility] [place] specialists. - Advised application of Desitin or zinc oxide to irritated perineal skin. 2. Chronic constipation (K59.09) Patient reports bowel movements approximately once a week, with associated bloating and discomfort. Previous use of Linzess was discontinued due to adverse effects. Examination suggests colonic motility dysfunction contributing to constipation. - Recommended daily administration of Miralax, starting with half a capful to a full capful to maintain regular bowel movements. - Discussed potential need for further interventions based on Sitzmarker study results. Medical Decision Making: Problems: Low: Stable chronic illness Data: Unique test result(s) reviewed: 2 Unique test(s) ordered: 2 Risk: Low: Low risk from testing/treatment Medical Decision Making Level: 3 - Low Mario Harper APRN.ISABEL Colorectal Surgery documented in this encounter [facility] 10-08-2024 Telephone encounter Note Pt needs refills [facility] 10-08-2024 Miscellaneous Notes Pt needs refills documented in this encounter [facility] 10-08-2024 History of Present illness Narrative Images from the original note were not included. Subjective Patient ID: Orion Harper is a 34 y.o. female who presents for tingling in both arms. Orion presents today for tingling in both arms. She says the tingling feels like pins and needles. She was sent to PT and that didn't help. She states not the tingling is moving up the left side of her face and into her ear. This happened about 3-4 weeks ago. She first thought it was an ear infection but the pain hasn't gone away. Neuropathy The onset of symptoms is gradual. It is located in the LUE region. The distribution is worse upper. The patient experiences pain intermittently. Severity of pain: severe. Quality of pain: numbing, tingling and shooting. Over the past 2 weeks, how often have you been bothered by any of the following problems? Little interest or pleasure in doing things: More than half the days Feeling down, depressed, or hopeless: More than half the days Patient Health Questionnaire-2 Score: 4 Over the past 2 weeks, how often have you been bothered by any of the following problems? Trouble falling or staying asleep, or sleeping too much: Nearly every day Feeling tired or having little energy: Nearly every day Poor appetite or overeating: More than half the days Feeling bad about yourself - or that you are a failure or have let yourself or your family down: More than half the days Trouble concentrating on things, such as reading the newspaper or watching television: Nearly every day Moving or speaking so slowly that other people could have noticed? Or the opposite - being so fidgety or restless that you have been moving around a lot more than usual.: Several days Thoughts that you would be better off or hurting yourself in some way: Not at all Patient Health Questionnaire-9 Score: 18 If you checked off any problems on this questionnaire so far, How difficult have these problems made it for you to do your work, take care of things at home, or get along with other people?: Very difficult Current Outpatient Medications on File Prior to [...] with the 10mg daily 30 capsule 0 buPROPion XL (Wellbutrin XL) 150 MG 24 hr tablet Take 150 mg by mouth in the morning. Cariprazine HCl (Vraylar) 4.5 MG capsule Take 1 capsule by mouth Daily 100 capsule 3 cephalexin (Keflex) 500 MG capsule TAKE 1 CAPSULE BY MOUTH EVERY 12 HOURS FOR 10 DAYS clomiPRAMINE (Anafranil) 50 MG capsule TAKE 1 CAPSULE BY MOUTH AT BEDTIME 30 capsule 6 cloNIDine (Catapres) 0.1 MG tablet 1 (one) time each day at the same time dicyclomine (Bentyl) 10 MG capsule Take 2 capsules (20 mg) by mouth 3 (three) times a day as needed (cramping) 240 capsule 11 escitalopram (Lexapro) 20 MG tablet Take 1.5 tablets (30 mg) by mouth in the morning. 45 tablet 2 Omiectekwok-Bkkifsphv-Wvuznu (Trelegy Ellipta) 100-62.5-25 MCG/ACT aerosol powder INHALE 1 PUFF DAILY 60 each 2 hydrocortisone (Anusol-HC) 25 MG suppository UNWRAP AND INSERT 1 SUPPOSITORY RECTALLY EVERY 12 HOURS NEEDED FOR HEMORRHOIDS metoprolol succinate XL (Toprol-XL) 25 MG 24 hr tablet Take 1 tablet (25 mg) by mouth Daily 100 tablet 3 montelukast (Singulair) 10 MG tablet Take 1 tablet (10 mg) by mouth at bedtime 30 tablet 11 phentermine (Adipex-P) 37.5 MG tablet TAKE 1 TABLET (37.5 MG) BY MOUTH IN THE MORNING 30 tablet 0 QUEtiapine XR (SEROquel XR) 50 MG 24 hr tablet Take 50 mg by mouth at bedtime tiZANidine (Zanaflex) 4 MG tablet Take 1 tablet (4 mg) by mouth every 6 (six) hours if needed for muscle spasms for up to 10 days 30 tablet 0 [DISCONTINUED] clomiPRAMINE (Anafranil) 50 MG capsule TAKE 1 CAPSULE BY MOUTH AT BEDTIME 30 capsule 0 No current facility-administered medications on file [...] right renal stones Ankle sprain 01/10/24 Asthma (HCC) COVID 03/11/2021 Positive COVID Partial Pfizer immunization Delayed gastric emptying 09/12/2022 Diverticulitis Gall stones Gestational hypertension (HHS-HCC) H/O CT scan of chest 07/30/2018 No Pulmonary Embolism, No Pulmonary Infiltrates, No suspicious findings HELLP syndrome (HHS-HCC) History of being hospitalized Diverticulitis [facility] IV [...] cyst 03/01/2019 simple cyst 1.2 cm Pancreatitis (HHS-HCC) Pap smear for cervical cancer screening 04/20/2022 neg Post depression Past Surgical History: Procedure Laterality Date ANKLE [...] Hysterectomy Smoking Status Former Review of Systems Neurological: Positive for numbness. Objective Physical Exam Vitals reviewed. Constitutional: Appearance: Normal appearance. HENT: Head: Normocephalic. Left Ear: Tympanic membrane normal. Nose: Nose normal. Mouth/Throat: Mouth: Mucous membranes are moist. Pharynx: Oropharynx is clear. Eyes: Conjunctiva/sclera: Conjunctivae normal. Cardiovascular: Rate and Rhythm: Normal rate. Pulmonary: Effort: Pulmonary effort is normal. Musculoskeletal: General: Swelling present. Skin: General: Skin is warm and dry. Neurological: General: No focal deficit present. Mental Status: She is alert and oriented to person, place, and time. Psychiatric: Mood and Affect: Mood normal. Behavior: Behavior normal. Thought Content: Thought content normal. Judgment: Judgment normal. Assessment/Plan Diagnoses and all orders for this visit: Numbness and tingling of upper extremity - Ambulatory referral to Neurology; Future 6 weeks of therapy ineffective. The neuropathy is worsening. May need to consider gabapentin. MRI showed mild degeneration. Attention deficit hyperactivity disorder (ADHD), predominantly inattentive type\ Medication choice and dosage is appropriate for patient's current medical conditions. Patient will continue to be required to be seen in our office at least every three months for monitoring. At each follow up visit I will reassess the patient's need for the medication. Patient is to have this medication prescribed only through this office. Failure to follow the rules and regulations will result in tapering and discontinuation of medications if applicable. Patient verbalized understanding. OARRS Report was reviewed for this patient. Bipolar disorder, in partial remission, most recent episode manic (HCC) Medication as directed. Counseling recommended. Verbalizes understanding of the need to be seen in the ER for suicidal/homicidal ideation, excessive stress, elevated blood pressure or palpitations. Pt offers understanding of treatment plan. I discussed the side effects of the medications described and to seek medical care if they arise. Discussed stress mgmt strategies, social support and importance of healthy diet, exercise and regular sleep habits. Advised on relaxation methods to decrease anxiety and depression. Agoraphobia with panic attacks Take medication as directed. Verbalizes understanding of the need to be seen in the ER for excessive stress, elevated blood pressure or palpitations. Advised on relaxation methods to decrease anxiety and depression. Pt offers understanding of treatment plan. Numbness and tingling of left side of face - Ambulatory referral to Neurology; Future Await neurology referral Urinary tract infection without hematuria, site unspecified - cephalexin (Keflex) 500 MG capsule; Take 1 capsule (500 mg) by mouth in the morning and 1 capsule (500 mg) before bedtime. Start the above medications as directed. Provided patient with prescription for Pyridium for symptomatic relief. Advised of potential side effects including discoloration of urine. Increase water intake, get plenty of rest. Advised patient that the urine will be sent out for culture. May need to change the antibiotic based on the culture results. Cranberry juice ok. Avoid bath tubs and hot tubs or use the restroom afterwards, always wipe front to back, avoid fragrance soaps in that area, urinate after intercourse if sexually active. Discussed if patient develops any N/V, fever/chills, or symptoms dramatically increase, the patient is to go to the ER. Otherwise follow up at our office if no improvement in one week. Inflammation and stiffening of spine - predniSONE (Deltasone) 10 MG tablet; Take 4 tablets (40 mg) by mouth Daily for 4 days, THEN 3 tablets (30 mg) Daily for 4 days, THEN 2 tablets (20 mg) Daily for 4 days, THEN 1 tablet (10 mg) Daily for 4 days. Do not take this medication with ibuprofen. You can only take APAP when on this medication. Take with food. Do not take in the evening. Take in the morning. Monitor for any signs of GI bleed. If your stools become black and tarry, stop medication and call office. Mild intermittent asthma without complication (HCC) - albuterol HFA 90 mcg/act inhaler; Inhale 2 puffs every 6 (six) hours if needed for wheezing This is a chronic medical condition that is stable since last assessment. No changes in treatment are suggested at this time. No follow-ups on file. documented in this encounter [facility] 10-01-2024 Telephone encounter Note Images from the original note were not included. Iliana Mercado PA-C You13 minutes ago (4:00 PM) LY Signed thank you [facility] 10-01-2024 Miscellaneous Notes Images from the original note were not included. Iliana Mercado PA-C You13 minutes ago (4:00 PM) LY Signed thank you Images from the original note were not included. Iliana, Pt would like to make [facility] appt, Stated that she needs a consult, Pended a consult to you, If agree please review and sign Thanks, JW Mcdonough Tracey, WJ to Milly Harper TF 07/18/24 4:08 PM Iliana Atkins reviewed your message and advises: If it is hemorrhoids or fissures we should refer to [facility] as they would take care of that. Any other GI issues can keep appointment with me. Thank you, Benito Soriano RN Last read by Milly Harper at 11:26AM on 10/01/2024. Iliana Mercado PA-C to Benito Soriano RN LY 07/18/24 3:32 PM If it is hemorrhoids or fissures we should refer to [facility] as they would take care of that. Any other GI issues can keep appointment with me. Thank you! Pt called in stating she was told to make an appt with colorectal surgery back in July. She finally got a chance to call and they told her she needs a referral put in before she can make an appt. Please add referral and advise pt. documented in this encounter [facility] 10-01-2024 Telephone encounter Note Images from the original note were not included. Iliana, Pt would like to make [facility] appt, Stated that she needs a consult, Pended a consult to you, If agree please review and sign Thanks, JW Mcdonough Tracey, RN to Milly Harper TF 07/18/24 4:08 PM Iliana Atkins reviewed your message and advises: If it is hemorrhoids or fissures we should refer to [facility] as they would take care of that. Any other GI issues can keep appointment with me. Thank you, Benito Soriano, JW Last read by Milly Harper at 11:26AM on 10/01/2024. Iliana Mercado, FARNAZ to Benito Soriano RN LY 07/18/24 3:32 PM If it is hemorrhoids or fissures we should refer to [facility] as they would take care of that. Any other GI issues can keep appointment with me. Thank you! [facility] 10-01-2024 Telephone encounter Note Pt called in stating she was told to make an appt with colorectal surgery back in July. She finally got a chance to call and they told her she needs a referral put in before she can make an appt. Please add referral and advise pt. [facility] 09-25-2024 History of Present illness Narrative Images from the original note were not included. Subjective Patient ID: Orion Harper is a 33 y.o. female who presents for stiches removal. Orion presents today for having some stiches removed for her from right knee. This happened on september 13. She fell anf cut open the knee. Sutures were removed on the . A suture was still present. Consulted with Dr. Wright on case. A dissolvable suture came to surface. No signs of infection present. Current Outpatient Medications on File Prior to [...] with the 10mg daily 30 capsule 0 buPROPion XL (Wellbutrin XL) 150 MG 24 hr tablet Take 150 mg by mouth in the morning. Cariprazine HCl (Vraylar) 4.5 MG capsule Take 1 capsule by mouth Daily 100 capsule 3 cephalexin (Keflex) 500 MG capsule TAKE 1 CAPSULE BY MOUTH EVERY 12 HOURS FOR 10 DAYS clomiPRAMINE (Anafranil) 50 MG capsule TAKE 1 CAPSULE BY MOUTH AT BEDTIME 30 capsule 0 cloNIDine (Catapres) 0.1 MG tablet 1 (one) time each day at the same time escitalopram (Lexapro) 20 MG tablet Take 1.5 tablets (30 mg) by mouth in the morning. 45 tablet 2 Mtermplbkqp-Yohcjmedc-Qdbvjg (Trelegy Ellipta) 100-62.5-25 MCG/ACT aerosol powder INHALE 1 PUFF DAILY 60 each 2 hydrocortisone (Anusol-HC) 25 MG suppository UNWRAP AND INSERT 1 SUPPOSITORY RECTALLY EVERY 12 HOURS NEEDED FOR HEMORRHOIDS metoprolol succinate XL (Toprol-XL) 25 MG 24 hr tablet Take 1 tablet (25 mg) by mouth Daily 100 tablet 3 montelukast (Singulair) 10 MG tablet Take 1 tablet (10 mg) by mouth at bedtime 30 tablet 11 phentermine (Adipex-P) 37.5 MG tablet TAKE 1 TABLET (37.5 MG) BY MOUTH IN THE MORNING 30 tablet 0 QUEtiapine XR (SEROquel XR) 50 MG 24 hr tablet Take 50 mg by mouth at bedtime tiZANidine (Zanaflex) 4 MG tablet Take 1 tablet (4 mg) by mouth every 6 (six) hours if needed for muscle spasms for up to 10 days 30 tablet 0 [DISCONTINUED] metoprolol succinate XL (Toprol-XL) 25 MG 24 hr tablet Take 25 mg by mouth Daily No current facility-administered medications on file prior [...] Gastrointestinal: Negative. Genitourinary: Negative. Musculoskeletal: Negative. Skin: Suture noted 2 tails Neurological: Negative. Psychiatric/Behavioral: Negative. Objective Physical Exam Vitals reviewed. Constitutional: Appearance: Normal appearance. HENT: Head: Normocephalic. Mouth/Throat: Mouth: Mucous membranes are moist. Pharynx: Oropharynx is clear. Cardiovascular: Rate and Rhythm: Normal rate. Pulmonary: Effort: Pulmonary effort is normal. Skin: General: Skin is warm and dry. Comments: 2 tails of a dissolvable suture came to surface. No signs of infection along suture line of rt knee. Neurological: General: No focal deficit present. Mental Status: She is alert and oriented to person, place, and time. Psychiatric: Mood and Affect: Mood normal. Behavior: Behavior normal. Thought Content: Thought content normal. Assessment/Plan 1. Extrusion of suture, sequela (Primary) The tail was trimmed by Dr. Wright. The dissolvable suture should dissolve in several weeks. Monitor for any signs of infection. Keep area clean and dry. If any further complications should arise, come back to the office for further treatment. No follow-ups on file. documented in this encounter [facility] 09-17-2024 History of Present illness Narrative Images from the original note were not included. Subjective Patient ID: Orion Harper is a 33 y.o. female who presents for suture removal. Orion is present today with family for suture removal. She has a running stitch to be removed from her right knee. Stitches were placed at [facility] on 09/06/24 after a fall at home. Wound is well approximated. States she is getting very little red/orangeish drainage from the wound. Current Outpatient Medications on File Prior to Visit Medication Sig Dispense Refill buPROPion XL (Wellbutrin XL) 150 MG 24 hr tablet Take 150 mg by mouth in the morning. QUEtiapine XR (SEROquel XR) 50 MG 24 hr tablet Take 50 mg by mouth at bedtime albuterol (2.5 MG/3ML) 0.083% nebulizer solution Take [...] with the 10mg daily 30 capsule 0 Cariprazine HCl (Vraylar) 4.5 MG capsule Take 1 capsule by mouth Daily 100 capsule 3 cephalexin (Keflex) 500 MG capsule TAKE 1 CAPSULE BY MOUTH EVERY 12 HOURS FOR 10 DAYS clomiPRAMINE (Anafranil) 50 MG capsule TAKE 1 CAPSULE BY MOUTH AT BEDTIME 30 capsule 0 cloNIDine (Catapres) 0.1 MG tablet 1 (one) time each day at the same time escitalopram (Lexapro) 20 MG tablet Take 1.5 tablets (30 mg) by mouth in the morning. 45 tablet 2 Nfmjrcuxafo-Sfxlpmcxk-Zzypls (Trelegy Ellipta) 100-62.5-25 MCG/ACT aerosol powder INHALE 1 PUFF DAILY 60 each 2 hydrocortisone (Anusol-HC) 25 MG suppository UNWRAP [...] up to 10 days 30 tablet 0 [DISCONTINUED] AneCream5 5 % cream APPLY 1 APPLICATION TOPICALLY FOUR TIMES DAILY NEEDED FOR PAIN [DISCONTINUED] HYDROcodone-acetaminophen (Gays) 5-325 MG tablet Take 1 tablet by mouth every 4 (four) hours if needed Current Facility-Administered Medications on File Prior to Visit Medication Dose Route Frequency Provider Last Rate Last Admin [DISCONTINUED] semaglutide (Ozempic) injection 0.25 mg 0.25 mg [...] 05/2016 PELVIC LAPAROSCOPY 02/10/2023 Visit Vitals BP 112/76 Pulse 75 Resp 16 Ht 5' 2 Wt 192 lb 12.8 oz LMP (LMP Unknown) Comment: partial hysterectomy 05/2016 SpO2 99% BMI 35.26 kg/m OB Status Hysterectomy Smoking Status Former BSA 1.96 m Review of Systems Constitutional: Negative for chills, fatigue and fever. Respiratory: Negative for cough, shortness of breath and wheezing. Cardiovascular: Negative for chest pain, palpitations and leg swelling. Gastrointestinal: Negative for abdominal pain, constipation, diarrhea, nausea and vomiting. Skin: Positive for wound. Negative for rash. Objective Physical Exam Constitutional: General: She is not in acute distress. Appearance: Normal appearance. She is well-developed. HENT: Head: Normocephalic and atraumatic. Eyes: General: No scleral icterus. Conjunctiva/sclera: Conjunctivae normal. Cardiovascular: Rate and Rhythm: Normal rate and regular rhythm. Heart sounds: Normal heart sounds. No murmur heard. Pulmonary: Effort: Pulmonary effort is normal. No respiratory distress. Breath sounds: Normal breath sounds. No wheezing, rhonchi or rales. Skin: General: Skin is warm and dry. Findings: Laceration present. Comments: Right anterior inferior knee with curvilinear laceration with intact running stitch. No active drainage. Minimal swelling. Minimal erythema. Mildly tender. Neurological: General: No focal deficit present. Mental Status: She is alert and oriented to person, place, and time. Psychiatric: Mood and Affect: Mood normal. Behavior: Behavior normal. Assessment/Plan Diagnoses and all orders for this visit: Laceration of right knee without complication, sequela Area prepped with alcohol. Suture removal scissors and forceps used to remove the running stitch one section at a time. Pt tolerated this with mild discomfort. Steri-strips were applied. Advised pt that she is to avoid bending the knee for the next 48-72 hours, then can gradually increase activity as tolerated. Knee immobilizer for next 48-72 hours. Advised the Steri-strips will fall off on their own. Ok to shower, pat the area dry after. Avoid soaking the area as in a pool for next 72 hours. Continue to monitor for s/s of infection. Contact office with any concerns. Follow up if symptoms worsen or fail to improve. documented in this encounter [facility] 09-10-2024 History of Present illness Narrative Associated Problem(s): Laceration of right knee Add Probiotic to help replenish the good bacteria that are destroyed by the Antibiotics Florastor Florajen Align or try Activia in Yogurt Probiotics reduce the risk of antibiotic induced diarrhea Watch for secondary infections Associated Problem(s): Fall at home Tripped over kids onto the floor Images from the original note were not included. Attached media from the original note were not included. Subjective Patient ID: Orion Harper is a 33 y.o. female who presents for ER Follow-up. Pt is here do to falling on 09/06 at home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 05/06/2024 1:40 PM EST Echo was faxed to Anne-Marie @ [phone] & scanned into outside ep. Patient is having a procedure. Criss Mccrary [facility]01-13-2025 Miscellaneous Notes* Telephone Encounter - Criss Holm - 05/06/2024 1:40 PM EST Echo was faxed to Anne-Marie @ [phone] & scanned into outside ep. Patient is having a procedure. Criss Mccrary documented in this encounterPromedica Defiance [facility] Hospital01-10-2025 Telephone encounter Note * Telephone Encounter [...] seen at that time. Lydia Kelley DO [facility]01-09-2025 NoteHNO ID: [id number] Author: ZEHRA GRAY PA-C Service: ? Author Type: Physician Park Landscape Architect Type: Progress Notes Filed: 05/02/2024 11:34 Note [...] Q, Glynn T, Gifty J, Glynn H, Balaji T. Controlled attenuation parameter for assessment of hepatic steatosis grades: a diagnostic meta-analysis. Int J Clin Exp Med. 2015 Jan 15;8(10):54237-11. PMID: 08367013; PMCID: QWE4315221. Ruthann Bob, Juan FANTASMA, Rico M, Cosmo F, Tawnya J, Everardo O, Leyla F, Franci M, Alejandro G, Dorie A, Gianna E, Leyla L, French G, Kashmir A, Vicente U, Zapata S, Franc P, Max V, Last V, Leena Bob, Neo MARIE. Refining the Baveno elastography criteria for the definition of compensated advanced chronic liver disease. J Hepatol. 2020;74(5):3271-2122. doi: 10.1016/j.jhep.2020.11.050. Epub 2019Apr 01. PMID: 90554183. Izabel Bob, Chastity Moran, Martha Bob, Xiao Bob, Joon Stevens, Nuria Roth, Trevin Roth, Trixie Kendrick. AASLD practice guidance on the clinical assessment and management of nonalcoholic fatty liver disease. Hepatology. 2022;77(5):0826-1899. doi:10.1097/HEP.7609790334938740PyhycnkrfWvumedicine [facility] 05-02-2024 History of Present illness Narrative* [...] and referral to hepatology. Zehra Gray PA-C [facility] Fibroscan Fibrosis Risk <7 kPA = [...] Q, Glynn T, Gifty J, Glynn H, Balaji T. Controlled attenuation parameter for assessment of hepatic steatosis grades: a diagnostic meta-analysis. Int J Clin Exp Med. 2015 Jan 15;8(10):82977-91.PMID: 74380920; PMCID: [id number]. Ruthann Bob, Juan FANTASMA, Rico M, Cosmo F, Tawnya J, Everardo O, Leyla F, Franci M, Alejandro G, Dorie A, Rosalvain E, Leyla L, French G, Kashmir A, Vicente U, Zapata S, Jordan, Lucilao V, de Kole V, Leena M, Neo MARIE. Refining the Baveno elastography criteria for the definition of compensated advanced chronic liver disease. J Hepatol. 2020;74(5):7925-5966. doi: 10.1016/j.jhep.2020.11.050. Epub 2019Apr 01. PMID: 79330917. Izabel Bob, Chastity B, Martha M, Xiao M, Joon S, Nuria Roth, Trevin Roth, Trixie Kendrick.AASLD practice guidance on the clinical assessment and management of nonalcoholic fatty liver disease. Hepatology. 2022;77(5):1797- 1835. doi:10.1097/HEP.7449618226372947 documented in this encounterCleveland Mgxnbz29-22-6912 History of Present illness Narrative* Sandy Toribio, DIRECTOR NURSES' REGISTRY - 04/30/2024 2:50 PM EST Reason for [...] on 05/23/[address] Starr at [facility]. MEDICATIONS Current Outpatient Medications Medication Instructions albuterol [...] escitalopram (LEXAPRO) 20 mg, Oral, Every morning Wfvyjhoaick-Hsedkgljk-Lprlsh 100-62.5-25 MCG/ACT aerosol powder 1 puff, Inhalation, [...] Attention deficit hyperactivity disorder, predominantly inattentive type ([facility]) 09/23/2022 Bipolar disorder, in partial remission, most recent episode manic ([facility]) 09/23/2022 Diverticular disease of colon 09/23/2022 Dysphagia 09/23/2022 Elevated liver enzymes 09/23/2022 Exercise induced bronchospasm ([facility]) 09/23/2022 Finding of above normal blood pressure 09/23/2022 History of hysterectomy 09/23/2022 Hyperglycemia 09/23/2022 Hypersexuality 09/23/2022 Insomnia 09/23/2022 Irritable bowel syndrome with constipation 09/23/2022 Mild intermittent asthma without complication ([facility]) 09/23/2022 Mood swings 09/23/2022 Nephrolithiasis 09/23/2022 Nonalcoholic steatohepatitis (ENGLISH) 09/23/2022 Other specified abnormal findings of blood chemistry 09/23/2022 Poor concentration 09/23/2022 Sacroiliitis, not elsewhere classified ([facility]) 09/23/2022 Skin pain 09/23/2022 Thyroid enlargement ([facility]) 09/23/2022 Atherosclerosis of aorta ([facility]) 06/16/2020 Atherosclerosis of both carotid arteries 11/16/2020 Atherosclerosis of coronary artery without angina pectoris ([facility]) 05/18/2021 Gastroesophageal reflux disease without esophagitis 07/09/2019 Gastroparesis 11/02/2022 Non-refractory idiopathic generalized epilepsy ([facility]) 11/22/2019 Osteoarthritis of knee 06/14/2019 Hypercholesterolemia ([facility]) 07/01/2021 Recurrent UTI 12/12/2022 Vitamin D deficiency 05/16/2019 Dizziness 12/13/2022 Acute nonintractable headache 12/13/2022 History of COVID-19 02/06/2023 Overweight 02/06/2023 Acute biliary pancreatitis without infection or necrosis 03/21/2023 Calculus of gallbladder without cholecystitis without obstruction 03/23/2023 Cholecystitis 04/18/2023 Encounter for postoperative care 04/18/2023 History of acute pancreatitis 04/18/2023 History of cholecystectomy 04/18/2023 Cough 04/18/2023 Anaphylactic syndrome 04/18/2023 PTSD (post-traumatic stress disorder) ([facility]) 02/24/2015 Tinea 10/03/2023 Weight gain 10/03/2023 Glucose intolerance 10/03/2023 Dyshidrosis 10/03/2023 Encounter for well adult exam without abnormal findings 12/04/2023 Cervical radiculopathy 12/26/2023 Obesity (BMI 35.0-39.9 without comorbidity) 02/06/2024 Localized edema 02/06/2024 Injury of right ankle 02/06/2024 Sprain of anterior talofibular ligament of right ankle 04/01/2024 Pain and swelling of left shoulder 04/03/2024 Asthmatic bronchitis with acute exacerbation ([facility]) 04/16/2024 Snoring 04/16/2024 Resolved Ambulatory Problems Diagnosis [...] nursing note reviewed. Exam conducted with a automatic embroidery machine tender present. Vitals: Estimated body mass index is [...] reviewed, and patient is to proceed to [facility] OR. Follow Up: Patient is to follow up between 1-2 weeks post operative to assess proper healing and recovery fromprocedure. Documented by Sandy Toribio LPN on behalf of: Darwin Starr DO documented in this encounterCox Walnut LawnLtaodzsqlr59-72-1574 History of Present illness Narrative* Iliana Mercado [...] she saw Dr. Hylton in 2021 in [facility]. 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 Hylton who is legal administrative secretary We discussed seeing endocrinology to help with [...] -Fibroscan Iliana Mercado PA-C documented in this encounterPromedica Defiance [facility]01-03-2025 NoteHNO ID: [id number] Author: ILIANA MERCADO PA-C Service: ? Author Type: Physician Park Landscape Architect Type: Progress Notes Filed: 04/26/2024 15:02 Note [...] she saw Dr. Hylton in 2021 in [facility]. 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 Hylton who is legal administrative secretary We discussed seeing endocrinology to help with [...] Narrative I have pers (more content not included)...[facility]01-03-2025 Instructions* Patient Instructions* Iliana Mercado PA-C [...] do not hesitate to send me a [place] message or call. Iliana Mercado PA-C documented in this encounterPromedica Defiance [facility] Hospital01-03-2025 NoteHNO ID: [id number] Author: LYDIA KELLEY DO Service: ? Author Type: Physician Type: [...] return to discuss consent (more content not included)...[facility]01-03-2025 History of Present illness Narrative* Lydia [...] Lydia Kelley D.O. M.P.H. documented in this encounterPromedica Defiance Regional Hospital12-30-2024 Telephone encounter Note * Telephone Encounter - BALDO STRONG - 04/22/2024 9:58 AM EST Patient states she was seen in office on 04-16 and then later in the week she ended up at the Urgent Care due to her cough. She would like Evagilberto Santos called in for her cough. [facility] LawnQfoapkdhsz37-09-2278 Miscellaneous Notes* Telephone Encounter - BALDO STRONG - 04/22/2024 9:58 AM EST Patient states she was seen in office on 04-16 and then later in the week she ended up at the Urgent Care due to her cough. She would like Evagilberto Santos called in for her cough. documented in this encounterCox Walnut LawnLzmgdanjqk15-92-7938 History of Present illness Narrative* Josephine Gilman, JAGDISH - 04/18/2024 4:35 PM EST Images from the original note were not included. [address] , [address] [facility], [address] P: [phone] F: [phone] HPI Historian of HPI: patient Orion Harper [...] 20 tablet; Refill: 0 documented in this encounterCox Walnut LawnCcpwkvjrrs18-27-9307 Telephone encounter Note* Telephone Encounter - oSlo Mora MD - 04/08/2024 3:07 PM EST [...] she is unable to do the treadmill [facility] Work Phone: 1(419) 699-420412-16-2024 Miscellaneous Notes* Telephone Encounter - Solo Mora [...] to do the treadmill documented in this encounterPromedica Defiance Regional Hospital12-13-2024 Telephone encounter Note * Telephone Encounter - Criss Mccrary - 04/05/2024 1:01 PM EST Outside ep I have a copy @ my desk Criss Mccrary [facility]12-13-2024 Miscellaneous Notes* Telephone Encounter - Criss Holm - 04/05/2024 1:01 PM EST Outside ep I have a copy @ my desk Criss Mccrary documented in this encounterPromedica Defiance Regional Hospital12-11-2024 History of Present illness Narrative* Deena [...] DAY IN THE MORNING 30 tablet 2 Qttagkyjdhc-Vqnanqwib-Sebuwm 100-62.5-25 MCG/ACT aerosol powder INHALE 1 PUFF [...] No follow-ups on file. documented in this encounterCox Walnut LawnHxqreqrvod28-70-0321 Telephone encounter Note* Telephone Encounter - Criss Mccrary - 04/02/2024 3:50 PM EST This 'Ankle Surgery Clearance' was faxed over to Dr. Giovani Hagen (PCP) @ [phone] for signing. I spoke with the patient. Scanned into outside ep. Criss Mccrary [facility]12-10-2024 Miscellaneous Notes* Telephone Encounter - Criss Holm - 04/02/2024 3:50 PM EST This 'Ankle Surgery Clearance' was faxed over to Dr. Giovani Carrillojeane Hagen (PCP) @ [phone] for signing. I spoke with the patient. Scanned into outside ep. Criss Mccrary documented in this encounterPromedica Defiance Regional Hospital12-09-2024 Miscellaneous Notes* Telephone Encounter - Keri [...] follow up with Dr. Hylton who is legal administrative secretary We discussed seeing endocrinology to help with [...] Thanks, Connie Lucas RN contains abnormal data [facility] LIVER PANEL Component Ref Range & [...] ALBUMIN GLOBULIN RATIO 1.3 ontains abnormal data [facility] LIVER PANEL Component Ref Range & [...] - 29 U/L 72 High Lipase Order: [id number] Component Ref Range & Units 1 yr ago Lipase 13 - 60 U/L 260 High Hepatic Function Panel Order: [id number] Component Ref Range & Units 1 yr [...] g/dL 5.7 Low Hepatic Function Panel Order: [id number] Component Ref Range & Units 1 yr [...] ntains abnormal data COMPREHENSIVE METABOLIC PANEL Order: [id number] Component Ref Range & Units 1 yr [...] Filt Rate >60 mL/min/1.73m2 >60 Lipase Order: [id number] Component Ref Range & Units 1 yr [...] follow up with Dr. Hylton who is legal administrative secretary We discussed seeing endocrinology to help with [...] FRONTAL/LAT Carol Winn MD documented in this encounterPromedica Defiance Regional Hospital12-09-2024 Telephone encounter Note * Telephone Encounter - Keri Jamil - 04/01/2024 11:18 AM EST Pt called to schedule, per message below. First Est slot is July 26 for VV. Please review and advise if a New Pt slot can be used for this Pt. Thank you, [facility]12-09-2024 History of Present illness Narrative* Giovani [...] DAY IN THE MORNING 30 tablet 2 Uqzsyjibliy-Jzwfmqkow-Fnvcdf 100-62.5-25 MCG/ACT aerosol powder INHALE 1 PUFF [...] No follow-ups on file. documented in this encounterCox Walnut LawnZggovatlbf13-33-6464 Telephone encounter Note* Telephone Encounter - Carol Winn MD - 03/29/2024 9:06 PM EST I saw her in the past for this Per my note, Was seen by Dr. Hylton locally Will obtain labs and fibroscan results She had Nausea and vomiting with statin Couldn't tolerate metformin due to nausea/vomiting and diarrhea She can still follow up with Dr. Hylton who is legal administrative secretary We discussed seeing endocrinology to help with weight loss and insulin resistance We also discussed cutting back on ETOH to one drink a week (currently 3-4 drinks a week) Did she follow up with Dr. Hylton? She can schedule OV with me if she prefers [facility] Work Phone: 1(546) 449-664312-06-2024 Telephone encounter Note* Telephone Encounter - Connie Lucas RN - 03/29/2024 10:[address] Winn, Pt JESSE Dx Fatty Liver, Liver Disease PT sent MYC message requesting a follow up labs show elevated LFTs and wanted them reviewed Please advise Thanks, Connie Lucas RN contains abnormal data [facility] LIVER PANEL Component Ref Range & [...] ALBUMIN GLOBULIN RATIO 1.3 ontains abnormal data [facility] LIVER PANEL Component Ref Range & [...] - 29 U/L 72 High Lipase Order: [id number] Component Ref Range & Units 1 yr ago Lipase 13 - 60 U/L 260 High Hepatic Function Panel Order: [id number] Component Ref Range & Units 1 yr [...] g/dL 5.7 Low Hepatic Function Panel Order: [id number] Component Ref Range & Units 1 yr [...] ntains abnormal data COMPREHENSIVE METABOLIC PANEL Order: [id number] Component Ref Range & Units 1 yr [...] Filt Rate >60 mL/min/1.73m2 >60 Lipase Order: [id number] Component Ref Range & Units 1 yr [...] follow up with Dr. Hylton who is legal administrative secretary We discussed seeing endocrinology to help with [...] XR CHEST 2V FRONTAL/LAT Carol Winn MD [facility]12-04-2024 Telephone encounter Note* Telephone Encounter - VINH Roque - 03/27/2024 1:03 PM EST OARRS reviewed, Rx [facility]'s [facility]. [facility]hysutqjwv15-[facility]-2580 Miscellaneous Notes* Telephone Encounter - VINH Roque - 03/27/2024 1:03 PM EST OARRS reviewed, Rx sent into patient's pharmacy. * Telephone Encounter - Monet oMtley MA - 03/27/2024 12:35 PM EST Per hieu to increase tramadol 50mg 2 po every 6 prn documented in this encounterCox Walnut LawnAqvacuykki66-38-7690 Telephone encounter Note* Telephone Encounter - Monet Motley MA - 03/27/2024 12:35 PM EST Per hieu to increase tramadol 50mg 2 po every 6 prn [facility]Iyrtskfwfq84-60-8307 Telephone encounter Note* Telephone Encounter - Giovani Hagen MD - 03/25/2024 3:59 PM EST Images from the original note were not included. Patient: Orion A Meredith : 1990 PCP: Giovani Hagen MD Orion Harper is a 33 y.o. female [facility]. The main problem [...] Flowsheet Row Patient Outreach from 01/17/2024 in [facility] Information Discharge Date 01/10/24 Discharged To: Home Setting Discharge Hospital [facility] Engagement Call Start Time 1232 Admission [...] End Time 1233 No follow-ups on file. [facility]Exrmriqieq86-97-2730 Miscellaneous Notes* Telephone Encounter - Giovani Hagen MD - 03/25/2024 3:59 PM EST Images from the original note were not included. Patient: Orion Harper : 1990 PCP: Giovani Hagen MD Orion Harper is a 33 y.o. female presenting today [facility]. The main problem [...] Flowsheet Row Patient Outreach from 01/17/2024 in [facility] Information Discharge Date 01/10/24 Discharged To: Home Setting Discharge Hospital [facility] Engagement Call Start Time 1232 Admission [...] are in the chart. documented in this encounterCox Wal[facility] LawnFyxlwsnajt09-70-4753 Telephone encounter Note* Telephone Encounter - BALDO STRONG - 03/25/2024 1:02 PM EST Patient called asking about the results of her MRI, please advise. Results are in the chart. [facility]Jbsmwokhst50-16-4240 History of Present illness Narrative* Sandy Toribio [...] escitalopram (LEXAPRO) 20 mg, Oral, Every morning Rftpxfrlhvf-Ziqxcuniy-Qrkfgc 100-62.5-25 MCG/ACT aerosol powder INHALE 1 PUFF [...] Attention deficit hyperactivity disorder, predominantly inattentive type ([facility]) 09/23/2022 Bipolar disorder, in partial remission, most recent episode manic ([facility]) 09/23/2022 Diverticular disease of colon 09/23/2022 Dysphagia 09/23/2022 Elevated liver enzymes 09/23/2022 Exercise induced bronchospasm ([facility]) 09/23/2022 Finding of above normal blood pressure 09/23/2022 History of hysterectomy 09/23/2022 Hyperglycemia 09/23/2022 Hypersexuality 09/23/2022 Insomnia 09/23/2022 Irritable bowel syndrome with constipation 09/23/2022 Mild intermittent asthma without complication ([facility]) 09/23/2022 Mood swings 09/23/2022 Nephrolithiasis 09/23/2022 Nonalcoholic steatohepatitis (ENGLISH) 09/23/2022 Other specified abnormal findings of blood chemistry 09/23/2022 Poor concentration 09/23/2022 Sacroiliitis, not elsewhere classified ([facility]) 09/23/2022 Skin pain 09/23/2022 Thyroid enlargement ([facility]) 09/23/2022 Atherosclerosis of aorta ([facility]) 06/16/2020 Atherosclerosis of both carotid arteries 11/16/2020 Atherosclerosis of coronary artery without angina pectoris ([facility]) 05/18/2021 Gastroesophageal reflux disease without esophagitis 07/09/2019 Gastroparesis 11/02/2022 Non-refractory idiopathic generalized epilepsy ([facility]) 11/22/2019 Osteoarthritis of knee 06/14/2019 Hypercholesterolemia ([facility]) 07/01/2021 Recurrent UTI 12/12/2022 Vitamin D deficiency 05/16/2019 Dizziness 12/13/2022 Acute nonintractable headache 12/13/2022 History of COVID-19 02/06/2023 Overweight 02/06/2023 Acute biliary pancreatitis without infection or necrosis 03/21/2023 Calculus of gallbladder without cholecystitis without obstruction 03/23/2023 Cholecystitis 04/18/2023 Encounter for postoperative care 04/18/2023 History of acute pancreatitis 04/18/2023 History of cholecystectomy 04/18/2023 Cough 04/18/2023 Anaphylactic syndrome 04/18/2023 PTSD (post-traumatic stress disorder) ([facility]) 02/24/2015 Tinea 10/03/2023 Weight gain 10/03/2023 Glucose [...] Abnormal LFTs Abnormal liver ultrasound 06/15/2022 Asthma ([facility]) COVID 03/11/2021 Delayed gastric emptying 09/12/2022 Gall [...] nursing note reviewed. Exam conducted with a automatic embroidery machine tender present. Vitals: Estimated body mass index is [...] to be scheduled for dx lap with rakan covington. Pt has a positive bladder swipe. Rx for doxy faxed to pharmacy. Pap was obtained without difficulty. Orders Placed This Encounter Procedures HPV DNA probe, amplified Follow Up: Patient is to return in one year for annual unless needed otherwise. Documented by Sandy Toribio LPN on behalf of: Darwin Starr DO documented in this encounterCox Walnut LawnXquevaqunw79-69-1836 Telephone encounter Note* Telephone Encounter - VINH Roque - 03/07/2024 11:20 AM EST OARRS reviewed, Rx sent into patient's pharmacy. [facility] Cqhqpvfguq43-31-1122 Miscellaneous Notes* Telephone Encounter - VINH Roque - 03/07/2024 11:20 AM EST OARRS reviewed, Rx sent into patient's pharmacy. documented in this encounterCox Walnut LawnYimkbnbbos01-68-9216 Telephone encounter Note* Telephone Encounter - VINH Roque - 03/07/2024 9:14 AM EST OARRS reviewed, Rx sent into patient's pharmacy. [facility]wnQlvwesncgu88-14-5511 Miscellaneous Notes* Telephone Encounter - IVNH Roque - 03/07/2024 9:14 AM EST OARRS reviewed, Rx sent into patient's pharmacy. * Telephone Encounter - Sasha Ng - 03/06/2024 4:22 PM EST ALPRAZolam (Xanax) 0.5 MG tablet [facility] documented in this encounterCox Walnut LawnAjrhimesyf73-05-2045 History of Present illness Narrative* Arun Hernadez [...] seems to be a flair up. Pain: 210 neck, ankle 3/10 Objective: PT Evaluation (02/05/24) [...] to be instructed in home exercise program. [place] [employer] Goals: To be met in 10 weeks [...] 03/07/2024 2:57 PM EST documented in this encounterCox Walnut LawnIwdqnlgqvq67-70-8282 Telephone encounter Note* Telephone Encounter - Sasha Ng - 03/06/2024 4:22 PM EST ALPRAZolam (Xanax) 0.5 MG tablet [facility]wnSiyxikfbfh90-25-5702 History of Present illness Narrative* Zhen Burgess, [...] to be instructed in home exercise program. [place] [employer] Goals: To be met in 10 weeks [...] Please sign below. Date: documented in this encounterCox Walnut LawnJfjovjwjij22-30-6166 History of Present illness Narrative* Giovani Hagen [...] DAY IN THE MORNING 30 tablet 2 Qpzggwiurst-Nblbdywxg-Tfypoy 100-62.5-25 MCG/ACT aerosol powder INHALE 1 PUFF [...] CT ANGIOGRAM CHEST 07/30/2018 CT ANGIOGRAM CHEST [facility] DATA LEGACY EGD 06/30/2022 Normal [...] No follow-ups on file. documented in this [facility]10-07-2024 Telephone encounter Note* Telephone Encounter - Millicent Cordova - 01/29/2024 11:22 AM EDT 25 visits out to 10/21/24 [facility]Xdzftljdyg61-54-6524 Miscellaneous Notes* Telephone Encounter - Millicent Cordova - 01/29/2024 11:22 AM EDT 25 visits out to 10/21/24 documented in this encounterCox Walnut LawnWgjoozuklg59-86-1533 History of Present illness Narrative* Acacia Vigil, DIRECTOR NURSES' REGISTRY - 01/22/2024 1:50 PM EDT Reason for [...] escitalopram (LEXAPRO) 20 mg, Oral, Every morning Ktnbglhoobp-Dlnvypzvw-Nwqvkm 100-62.5-25 MCG/ACT aerosol powder INHALE 1 PUFF [...] constipation 09/23/2022 Mild intermittent asthma without complication ([facility]) 09/23/2022 Mood swings 09/23/2022 Nephrolithiasis 09/23/2022 Nonalcoholic steatohepatitis (ENGLISH) 09/23/2022 Other specified abnormal findings of blood chemistry 09/23/2022 Poor concentration 09/23/2022 Sacroiliitis, not elsewhere classified ([facility]) 09/23/2022 Skin pain 09/23/2022 Thyroid enlargement ([facility]) 09/23/2022 Atherosclerosis of aorta ([facility]) 06/16/2020 Atherosclerosis of both carotid arteries 11/16/2020 Atherosclerosis of coronary artery without angina pectoris ([facility]) 05/18/2021 Gastroesophageal reflux disease without esophagitis 07/09/2019 Gastroparesis 11/02/2022 Non-refractory idiopathic generalized epilepsy ([facility]) 11/22/2019 Osteoarthritis of knee 06/14/2019 Hypercholesterolemia ([facility]) 07/01/2021 Recurrent UTI 12/12/2022 Vitamin D deficiency 05/16/2019 Dizziness 12/13/2022 Acute nonintractable headache 12/13/2022 History of COVID-19 02/06/2023 Overweight 02/06/2023 Acute biliary pancreatitis without infection or necrosis 03/21/2023 Calculus of gallbladder without cholecystitis without obstruction 03/23/2023 Cholecystitis 04/18/2023 Encounter for postoperative care 04/18/2023 History of acute pancreatitis 04/18/2023 History of cholecystectomy 04/18/2023 Cough 04/18/2023 Anaphylactic syndrome 04/18/2023 PTSD (post-traumatic stress disorder) ([facility]) 02/24/2015 Tinea 10/03/2023 Weight gain 10/03/2023 Glucose [...] nursing note reviewed. Exam conducted with a automatic embroidery machine tender present. Vitals: Estimated body mass index is [...] of: Darwin Starr DO documented in this encounterCox Walnut LawnVznwyynzav35-24-1593 History of Present illness Narrative* Giovani Hagen [...] DAY IN THE MORNING 30 tablet 2 Ijvtbmcgjbu-Gznsxpvfo-Wacdrv 100-62.5-25 MCG/ACT aerosol powder INHALE 1 PUFF [...] No follow-ups on file. documented in this encounterCox Walnut LawnMafduaioek84-53-0789 Telephone encounter Note* Telephone Encounter - Mala Hirsch - 01/08/2024 12:52 PM EDT [facility] [place] [facility] LawnXrfahlmpek35-30-5705 Miscellaneous Notes* Telephone Encounter - Mala Hirsch - 01/08/2024 12:52 PM EDT [facility] documented in this [facility]09-05-2024 Hospital Discharge instructions Patient Education 12/28/2023 15:59:41 Kidney Stones, Crsw-ks-Rtji Kidney Stones Kidney stones are rock-like masses [...] Follow these instructions at home: Medicines Take fcur-pxj-wqlufgl and prescription medicines only as told by [...] provider. Document Revised: 12/02/2022 Document Reviewed: 12/02/2022 [employer] Patient Education 2023 [employer]. Follow Up Care 11/07/2022 15:52:12 With:BHAVESH DEJESUS PA-C, URL Address: When:1 year [facility] 09-05-2024 NotePatient Education Urology Kidney Stones Kidney [...] these instructions at home: Medicines ? Take bihe-pgk-lvadfii and prescription medicines only as told by [...] provider. Document Revised: 12/02/2022 Document Reviewed: 12/02/2022 [employer] Patient Education ? 2023 [employer].[facility] 12-26-2023 History of Present illness Narrative* Giovani [...] DAY IN THE MORNING 30 tablet 2 Ieeiguccwkw-Mhdrcreja-Djqzok 100-62.5-25 MCG/ACT aerosol powder INHALE 1 PUFF [...] No follow-ups on file. documented in this encounterCox Walnut LawnPbcqqxdqft63-62-5799 NoteEducation (CARDMN) ORION HARPER ([id number]) 1990 F Date Time Provider Department 12/19/23 [...] infusion Encounter Status:Closed by GEGE LEMA on 12/19/23[facility]08-27-[facility]24 NoteHNO ID: [id number] Author: GEGE LEMA Tech Service: ? Author Type: Technologist Type: Progress Notes Filed: 12/19/2023 15:45 Note Text: EVENT MONITOR DISPOSABLE PATCH INSTRUCTIONS Patient Name: Orion Harper Clinic Number: [id number] Skin prepped and cleansed with alcohol Patch secured to prepped area Monitor Activated Serial #: [id number] Patient Instructed: Prescribed order timeframe Bathing guidelines Usage of event button and diary documentation Return of monitor at the end of prescribed order Call with problems [phone] or [phone]. [phone] Patient expresses a good understanding of instructions Tristian PrettyW[facility] History of Present illness Narrative* Gege Lema Tech - 12/19/2023 3:44 PM EDT EVENT MONITOR DISPOSABLE PATCH INSTRUCTIONS Patient Name: Orion Harper [facility] Number: [id number] Skin prepped and cleansed with alcohol Patch secured to prepped area Monitor Activated Serial #: [id number] Patient Instructed: Prescribed order timeframe Bathing guidelines Usage of event button and diary documentation Return of monitor at the end of prescribed order Call with problems [phone] or [phone]. [phone] Patient expresses a good understanding of instructions Tristian Pretty documented in this encounterPromedica Defiance [facility]08-27-[facility]24 Instructions* Patient Instructions* Solo Mora MD - 12/19/2023 3:27 PM EDT Next Steps: 1). Please wear a heart monitor for 2 weeks and mail it back 2). Please get a stress echo done and follow up with me afterwards documented in this encounterPromedica Defiance [facility]08-27-2024 History of Present illness Narrative* Solo Mora MD - 12/19/2023 2:45 PM EDT Images from the original note were not included. [facility] [place] [facility]er Department of Cardiovascular Medicine SECTION OF CARDIAC PACING and ELECTROPHYSIOLOGY OUTPATIENT VISIT DATE December 19, 2023 OUTPATIENT VISIT TYPE NEW PRIMARY CARE PHYSICIAN: Giovani Hagen MD [address] [place] [address] CHIEF COMPLAINT: Syncope, cardiac evaluation for family [...] had any workup done including Stress Echo, 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 Reports symptoms [...] had any workup done including Stress Echo, 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 PLAN AND RECOMMENDATIONS: - Exercise stress echo for exertional syncope to rule out structural or arrhythmic cause - 2 week tina Fitzgerald personally interviewed, confirmed and edited the above information as obtained by others. CONTACT INFORMATION: Solo Mora MD documented in this encounterPromedica Defiance [facility] Hospital08-27-2024 NoteHNO ID: [id number] Author: SOLO MORA MD Service: ? Author Type: Physician Type: Progress Notes Filed: 12/28/2023 02:49 Note Text: [facility] [place] [facility] Department of Cardiovascular Medicine SECTION OF CARDIAC PACING and ELECTROPHYSIOLOGY OUTPATIENT VISIT DATE December 19, 2023 OUTPATIENT VISIT TYPE NEW PRIMARY CARE PHYSICIAN: Giovani Hagen MD [address] [place] [address] CHIEF COMPLAINT: Syncope, cardiac evaluation for family [...] had any workup done including Stress Echo, 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 Reports symptoms [...] today for syncopal episod (more content not included)...[facility]08-27-2024 NoteHNO ID: [id number] Author: SOLO MORA MD Service: ? Author [...] events correspond to sinus tachycardia Solo Mora, [facility]08-26-2024 Telephone encounter Note * Telephone Encounter - RT. Aroldo Calvo - 12/18/2023 10:09 AM EDT Patient had labwork performed on 12-13-2023. Dr. Colvin wanted you to be aware so you could review them. [facility]wnCjkrssjmnp16-34-8277 Miscellaneous Notes* Telephone Encounter - RT. Aroldo Calvo - 12/18/2023 10:09 AM EDT Patient had labwork performed on 12-13-2023. Dr. Colvin wanted you to be aware so you could review them. documented in this encounterCox Walnut LawnGzcaltmgsc66-35-5794 Telephone encounter Note* Telephone Encounter - Criss Mccrary - 11/02/2023 10:39 AM EDT Images from the original note were not included. Records are in Care Everywhere: EP Referral- 11/01/23 (Dr. Shilo Dillon/Cardiology) Criss Mccrary [facility]07-11-2024 Miscellaneous Notes* Telephone Encounter - Criss Holm - 11/02/2023 10:39 AM EDT Images from the original note were not included. Records are in Care Everywhere: EP Referral- 11/01/23 (Dr. Shilo Dillon/Cardiology) Criss Mccrary documented in this encounterPromedica Defiance Regional Hospital11-27-2023 Miscellaneous Notes* Telephone Encounter - Charlette [...] PPI prior to transfer. documented in this encounterPromedica Defiance Regional Hospital07-13-2023 Miscellaneous Notes* Telephone Encounter - Janny Frances - 11/03/2022 3:18 PM EDT PA for Ibsrela initiated electronically. Awaiting response [facility] ID# [id number] Rx BIN [id number] Rx PCN CLAIMCR Rx Grp STOH documented in this encounterPromedica Defiance Regional Hospital07-12-2023 History of Present illness Narrative* Soraida Caldwell, PhD - 11/02/2022 5:16 PM EDT Behavioral Medicine [facility] [place] Name: Orion Harper MR#: [id number] Date: 11/02/2022 Time: 1 hour Referred by: [...] She was given the website for the [facility] and shown the relaxation recordings with the recommendation to practice this and the rationale behind their use. Follow-up with Dr. Conteh was discussed as well as encouraging her to continue her PTSD work with a local trauma therapist. Soraida Zhang, Ph.D. documented in this encounterPromedica Defiance [facility] Hospital07-12-2023 History of Present illness Narrative* Samuel Freeman MD - 11/02/2022 1:00 PM EDT Assessment ASSESSMENT 32 year old female with medical refractory gastroparesis. PLAN I discussed surgical therapy for gastroparesis in detail. Orion Harper is candidate for furthermedical treatment. Needs to stop Wegovy May consider for wireless motility capsule study Constipation medication change per Dr. 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 DO Palomo Keller Sp Ddsi Clinical Pool Please ask her to see TRAFFIC CONTROL SUPERVISOR to r/o endometriosis there was a very slight abnormal wave (not strong) suggesting its possible Called and spoke with the patient and relayed providers message. documented in this encounterPromedica Defiance Regional Hospital06-27-2023 Miscellaneous Notes* Telephone Encounter - Karen Haney LPN - 10/18/2022 11:43 AM EDT PA initiated via MD On-Line. Await response. Covered: Retail, Mail Order Unknown: Specialty, Long-Term Care Group ID: [id number] Group name: [id number]: [id number] PCN: CLAIMCR documented in this encounterPromedica Defiance Regional Hospital06-27-2023 History of Present illness Narrative* Maria Dolores Corey DO - 10/18/2022 7:49 AM EDT Images from the original note were not included. documented in this encounterPromedica Defiance Regional Hospital06-26-2023 Nurse Note* Janny Frances - 10/17/2022 10:47 AM EDT EGG completed. Able to drink the 500 ml of water without any difficulty. documented in this encounterPromedica Defiance Regional Hospital05-22-2023 History of Present illness Narrative* Oziel [...] 10:11AM PATIENT DISCHARGED TO: Ambulatory patient, left PA department area. A Diagnostic radioactive procedure has taken place, with no further precautions necessary other than routine body substance precautions. More information regarding radiation safety can be found usingthis link: [email or web address] SIGNATURE: COLEEN ClarkR) PATIENT NAME: Orion Harper DATE: September 12, 2022 TIME: 2:45 PM PAGER/CONTACT #: documented in this encounterPromedica Defiance [facility] Hospital05-10-2023 Nurse Note* Wilma Limon RN - [...] Wilma Limon RN In Department: AMBULATORY SURGERY [facility]05-10-2023 Nurse Note* Wilma Limon RN - [...] In Department: AMBULATORY SURGERY documented in this encounterPromedica Defiance Regional Hospital05-10-2023 History and physical note * Carol [...] DATE: August 31, 2022 TIME: 2:51 PM [facility]05-10-2023 History and physical note* Carol Winn [...] 2022 TIME: 2:51 PM documented in this encounterPromedica Defiance Regional Hospital05-10-2023 Nurse Note* Ayleen Aj RN - [...] Ayleen Aj RN In Department: AMBULATORY SURGERY [facility]05-03-2023 Miscellaneous Notes* Telephone Encounter - Светлана Agosto Ma - 08/24/2022 3:59 PM EDT Lm to confirm procedure for 08-31-22 documented in this encounterPromedica Defiance Regional Hospital03-14-2023 Hospital Discharge instructions Patient Education 07/05/2022 [...] Address: [facility] [address] [place] [address]- Business (1) When:11/04/2022 08:39:10 Comments:With a stone metabolic work-up [facility]03-09-2023 Nurse Note* Wilma Limon RN - 06/30/2022 12:46 PM EST Pt denies any nausea at this time. Pt given 3 oz of apple juice per request and tolerating at this time. Pt denies any other s/s at this time, smiling in conversation, 500ml of Nacl completed as well. Pt reports she feels ready to go home. [facility]03-09-2023 Nurse Note* Wilma Limon RN - [...] In Department: AMBULATORY SURGERY documented in this encounterPromedica Defiance Regional Hospital03-09-2023 Nurse Note* Wilma Limon RN - [...] Pt resting in bed at this time. [facility]03-09-2023 Nurse Note* Wilma Limon RN - [...] By: Wilma Limon In Department: AMBULATORY SURGERY [facility]03-09-2023 History and physical note* Carol Winn [...] DATE: June 30, 2022 TIME: 11:35 AM [facility]03-09-2023 History and physical note* Carol Winn [...] 2022 TIME: 11:35 AM documented in this encounterPromedica Defiance [facility] Hospital03-09-2023 Nurse Note* Elissa Kwok RN - [...] Elissa Kwok RN In Department: AMBULATORY SURGERY [facility]03-02-2023 Miscellaneous Notes* Telephone Encounter - Светлана Agosto Ma - 06/23/2022 3:18 PM EST Confirmed procedure for 06-30-22 documented in this encounterPromedica Defiance Regional Hospital02-22-2023 History of Present illness Narrative* Monet [...] 15, 2022 8:08 PM documented in this encounterPromedica Defiance [facility] Hospital02-21-2023 Miscellaneous Notes* Telephone Encounter - Wilma [...] Carol Winn MD 06/14/2022 9:29 AM EST Ga Milly, the CT scan showed Fatty liver [...] if needed pending results documented in this encounterPromedica Defiance [facility] Hospital02-17-2023 History of Present illness Narrative* Diamond [...] 10, 2022 10:01 AM documented in this encounterPromedica Defiance [facility] Hospital02-03-2023 History of Present illness Narrative* Acacia [...] 27, 2022 12:29 PM [facility] History of Present illness Narrative* Carol [...] follow up with Dr. Hylton who is legal administrative secretary We discussed seeing endocrinology to help with [...] No follow-ups on file. [facility]* Encounter Date Diagnosis Assessment Notes Treatment Notes Treatment Clinical Notes Apr, ENGLISH (nonalcoholic steatohepatitis) (ICD-10 - K75.81) Apr, Abnormal ultrasound (ICD-10 - R93.89) Apr, Elevated liver enzymes (ICD-10 - R74.8) Apr, Liver cyst (ICD-10 - K76.89) [employer] Other Evaluation + Plan note Future Appointments Appointment Date:06/30/2022 10:00:00 AM Scheduled Provider: Location:[facility] Appointment Type:Urology CALL PAT FT Appointment Date:07/05/2022 08:15:00 AM Scheduled Provider: Location:[facility] Appointment Type:Urology FT Diagnostic Tests Pending * [facility] Appointment Date:11/07/2022 03:15:00 PM Scheduled Provider:Madhuri MISHRA MD Location:[facility] App[facility]ments Appointment Date:12/30/2024 03:15:00 PM Scheduled Provider:Madhuri MISHRA MD Location:[facility] Appointment Type:URO Office Visit [facility] evaluation noteNo assessment information available [facility] Work Phone: Evaluation note* Diagnosis Fatty liver- Primary Other chronic nonalcoholic liver disease Bilious vomiting with nausea Right sided abdominal pain Abdominal pain, unspecified site Nausea Nausea alone History of diverticulitis SOB (shortness of breath) Shortness of breath documented in this encounter [facility] note* Diagnosis Liver lesion- Primary Other specified disorders of liver documented in this encounter [facility] note* Diagnosis Gastroparesis- Primary documented in this encounter [facility] note* Diagnosis Gastroparesis- Primary documented in this encounter [facility] note* Diagnosis Irritable bowel syndrome with constipation- Primary Irritable bowel syndrome documented in this encounter [facility] note* Diagnosis Gastroparesis documented in this encounter [facility] note* Diagnosis Gastroparesis- Primary documented in this encounter [facility] note* Diagnosis SOB (shortness of breath) Shortness of breath documented in this encounter [facility] note* Diagnosis Liver lesion Other specified disorders of liver documented in this encounter [facility] note* Diagnosis Elevated LFTs Other abnormal blood chemistry documented in this encounter [facility] note* Diagnosis Bilious vomiting with nausea Right sided abdominal pain Abdominal pain, unspecified site Nausea Nausea alone documented in this encounter [facility] note* Diagnosis Nausea Nausea alone documented in this encounter [facility] note* Diagnosis Gastroparesis- Primary documented in this encounter [facility] note* Diagnosis Syncope and collapse- Primary documented in this encounter [facility] note* Diagnosis Syncope, unspecified syncope type- Primary documented in this encounter [facility] note* Diagnosis Syncope, unspecified syncope type- Primary documented in this encounter [facility] note* Diagnosis Nausea- Primary Nausea alone PUD (peptic ulcer disease) Peptic ulcer, unspecified site, unspecified as acute or chronic, without mention of hemorrhage, perforation, or obstruction Nausea Nausea alone documented in this encounter [facility] note* Diagnosis PUD (peptic ulcer disease)- [...] perforation, or obstruction documented in this encounter [facility] note* Diagnosis Attention deficit hyperactivity disorder, [...] and respiratory abnormality Acute bronchitis with asthma ([facility]/HCC)- Primary documented in this encounter [facility]* Diagnosis Elevated LFTs- Primary Other abnormal blood chemistry BRBPR (bright red blood per rectum) Hemorrhage of rectum and anus [facility] Diagnosis Attention deficit hyperactivity disorder, [...] 35.0-39.9 without comorbidity) documented in this encounter [facility]* Diagnosis Elevated LFTs- Primary Other abnormal blood chemistry [facility] Diagnosis Elevated LFTs- Primary Other abnormal blood chemistry [facility]* Diagnosis Attention deficit hyperactivity disorder, [...] right, initial encounter documented in this encounter [facility]* Diagnosis Right ankle instability- Primary Other joint derangement, not elsewhere classified, ankle and foot Right ankle instability Other joint derangement, not elsewhere classified, ankle and foot [facility] Diagnosis Sprain of anterior talofibular ligament of right ankle, initial encounter- Primary Right ankle instability Other joint derangement, not elsewhere classified, ankle and foot [facility]* Diagnosis Attention deficit hyperactivity disorder, predominantly inattentive type (CMS/HCC)- Primary Bipolar disorder, in partial remission, most recent episode manic ([facility]/HCC) Dizziness Dizziness and giddiness Nonintractable episodic headache, unspecified headache type Attention deficit hyperactivity disorder, predominantly inattentive type (CMS/HCC)- Primary Anxiety Anxiety state, unspecified Bipolar disorder, in partial remission, most recent episode manic ([facility]/HCC) History of cholecystectomy Other acquired absence [...] of spine- Primary [facility] Diagnosis ENGLISH (nonalcoholic steatohepatitis)- Primary Other chronic nonalcoholic liver disease Right ankle instability Other joint derangement, not elsewhere classified, ankle and foot [facility] Diagnosis Attention deficit hyperactivity disorder, [...] cervix and uterus documented in this encounter [facility]* Diagnosis BRBPR (bright red blood per rectum) Hemorrhage of rectum and anus [facility] Diagnosis Attention deficit hyperactivity disorder, [...] following unspecified surgery documented [facility]* [...] system- Primary Mild intermittent asthma without complication ([facility]/HCC) Moderate persistent asthmatic bronchitis with acute exacerbation ([facility]/HCC)- Primary Sprain of anterior talofibular ligament of right ankle, subsequent encounter Snoring Other dyspnea and respiratory abnormality 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 Attention deficit [...] [facility]* Diagnosis Other specified dyspareunia- Primary Pelvic pain in female Unspecified symptom associated with female genital organs Pelvic pain in female- Primary Unspecified symptom associated with female genital organs Other specified dyspareunia [facility] Diagnosis Pelvic pain in female- Primary Unspecified symptom associated with female genital organs Other specified dyspareunia documented [facility] this [facility]* Diagnosis Chronic idiopathic constipation Unspecified constipation [facility] Diagnosis Attention deficit hyperactivity disorder, predominantly [...] in partial remission, most recent episode manic ([facility]/HCC) Prediabetes Other abnormal glucose Anxiety- Primary Anxiety state, unspecified Generalized idiopathic epilepsy and epileptic syndromes, not intractable, without status epilepticus ([facility]) 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[facility]) Other disorder of impulse control PTSD (post-traumatic stress disorder) ([facility]) Posttraumatic stress disorder Peroneal tendon tear, right, initial encounter- Primary Right ankle instability Other joint derangement, not elsewhere classified, ankle and foot Contracture of right ankle [facility]* Diagnosis Attention deficit hyperactivity disorder, predominantly inattentive type (CMS/HCC)- Primary Bipolar disorder, in partial remission, most recent episode manic ([facility]) Dizziness Dizziness and giddiness Nonintractable episodic headache, unspecified headache type Attention deficit hyperactivity disorder, predominantly inattentive type (CMS/HCC)- Primary Anxiety Anxiety state, unspecified Bipolar disorder, in partial remission, most recent episode manic ([facility]) History of cholecystectomy Other acquired absence of organ History of acute pancreatitis Anaphylaxis, sequela Cough, unspecified type Bipolar disorder, in partial remission, most recent episode manic ([facility]/HCC)- Primary Attention deficit hyperactivity disorder (ADHD), predominantly inattentive type (CMS/HCC) Attention deficit hyperactivity disorder, predominantly inattentive type ([facility]/HCC) Anxiety Anxiety state, unspecified Encounter for well adult exam without abnormal findings- Primary Attention deficit hyperactivity disorder, predominantly inattentive type ([facility]/HCC) Anxiety Anxiety state, unspecified Vitamin D deficiency Bipolar disorder, in partial remission, most recent episode manic ([facility]) Obesity (BMI 35.0-39.9 without comorbidity) Cervical radiculopathy- Primary Brachial neuritis or radiculitis nos Acute nonintractable headache, unspecified headache type Nausea and vomiting, unspecified vomiting type Localized edema- Primary Edema Obesity (BMI 35.0-39.9 without comorbidity) Injury of right ankle, subsequent encounter Anxiety Anxiety state, unspecified Bipolar disorder, in partial remission, most recent episode manic ([facility]) Tremors of nervous system- Primary Mild intermittent asthma without complication ([facility]) Moderate persistent asthmatic bronchitis with acute exacerbation ([facility])- Primary Sprain of anterior talofibular ligament of right ankle, subsequent encounter Snoring Other dyspnea and respiratory abnormality 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), predominantly inattentive type (CMS/HCC) Bipolar disorder, in partial remission, most recent episode manic (CMS/HCC) Prediabetes Other abnormal glucose Anxiety- Primary Anxiety state, unspecified Generalized idiopathic epilepsy and epileptic syndromes, not intractable, 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) 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 PTSD (post-traumatic stress disorder) (CMS/HCC) Posttraumatic stress disorder Anxiety Anxiety state, unspecified PTSD (post-traumatic stress disorder) ([facility]/HCC) Posttraumatic stress disorder documented in this encounter [...] in partial remission, most recent episode manic ([facility]/HCC) Obesity (BMI 35.0-39.9 without comorbidity) Cervical radiculopathy- [...] system- Primary Mild intermittent asthma without complication ([facility]/HCC) Moderate persistent asthmatic bronchitis with acute exacerbation ([facility])- Primary Sprain of anterior talofibular ligament of [...] subsequent encounter- Primary documented in this encounter [facility]* Diagnosis Palpitation- Primary Palpitations [facility] Diagnosis Attention deficit hyperactivity disorder, [...] in partial remission, most recent episode manic ([facility]/) Tremors of nervous system- Primary Mild intermittent asthma without complication (CMS/HCC) Moderate persistent asthmatic bronchitis with acute exacerbation ([facility]/HCC)- Primary Sprain of anterior talofibular ligament of right ankle, subsequent encounter Snoring Other dyspnea and respiratory abnormality 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), predominantly inattentive type ([facility]/HCC) Bipolar disorder, in partial remission, most recent episode manic ([facility]/HCC) Prediabetes Other abnormal glucose Anxiety- Primary Anxiety state, unspecified Generalized idiopathic epilepsy and epileptic syndromes, not intractable, 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) 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 PTSD (post-traumatic stress disorder) ([facility]) Posttraumatic stress disorder 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 Anxiety Anxiety state, unspecified PTSD (post-traumatic stress disorder) ([facility]/HCC) Posttraumatic stress disorder 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CMS/HCC) Other disorder [...] in partial remission, most recent episode manic ([facility]/HCC) Obesity (BMI 35.0-39.9 without comorbidity) Cervical radiculopathy- [...] Moderate persistent asthmatic bronchitis with acute exacerbation ([facility])- Primary Sprain of anterior talofibular ligament of [...] unspecified Sinus tachycardia Other specified cardiac dysrhythmias Fall in home, sequela- Primary Laceration of right knee, subsequent encounter documented in this encounter [facility] [...] unspecified Sinus tachycardia Other specified cardiac dysrhythmias Fall in home, sequela- Primary Laceration of right knee, subsequent encounter Laceration of right knee without complication, sequela- Primary documented in this encounter [facility]* Diagnosis Rectal pain- Primary Anal or rectal pain Hemorrhoids, unspecified hemorrhoid type [facility] Diagnosis Attention deficit hyperactivity disorder, predominantly [...] of impulse control PTSD (post-traumatic stress disorder) ([facility]/HCC) Posttraumatic stress disorder 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 Anxiety Anxiety state, unspecified PTSD (post-traumatic stress disorder) (CMS/HCC) Posttraumatic stress disorder 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 Mood swings- Primary Other specified episodic mood disorder Bipolar disorder, in partial remission, most recent episode manic ([facility]) Anxiety Anxiety state, unspecified Sinus tachycardia Other specified cardiac dysrhythmias Fall in home, sequela- Primary Laceration of right knee, subsequent encounter Extrusion of suture, sequela- Primary documented in this [facility]* Diagnosis Attention deficit hyperactivity disorder, predominantly inattentive type- Primary Bipolar disorder, in partial remission, most recent episode manic (HCC) Dizziness Dizziness and giddiness Nonintractable episodic headache, unspecified headache type Attention deficit hyperactivity disorder, predominantly inattentive type- Primary Anxiety Anxiety state, unspecified Bipolar disorder, in partial remission, most recent episode manic (HCC) History of cholecystectomy Other acquired absence of organ History of acute pancreatitis Anaphylaxis, sequela Cough, unspecified type Bipolar disorder, in partial remission, most recent episode manic (HCC)- Primary Attention deficit hyperactivity disorder (ADHD), 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, predominantly inattentive type Anxiety Anxiety state, unspecified Encounter for well adult exam without abnormal findings- Primary Attention deficit hyperactivity disorder, predominantly inattentive type Anxiety Anxiety state, unspecified Vitamin D deficiency Bipolar disorder, in partial remission, most recent episode manic (HCC) Obesity (BMI 35.0-39.9 without comorbidity) Cervical radiculopathy- Primary Brachial neuritis or radiculitis nos Acute nonintractable headache, unspecified headache type Nausea and vomiting, unspecified vomiting type Localized edema- Primary Edema Obesity (BMI 35.0-39.9 without comorbidity) Injury of right ankle, subsequent encounter Anxiety Anxiety state, unspecified Bipolar disorder, in partial remission, most recent episode manic ([facility]) Tremors of nervous system- Primary Mild intermittent asthma without complication ([facility]) Moderate persistent asthmatic bronchitis with acute exacerbation ([facility])- Primary Sprain of anterior talofibular ligament of right ankle, subsequent encounter Snoring Other dyspnea and respiratory abnormality 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), predominantly inattentive type Bipolar disorder, in partial remission, most recent episode manic (HCC) Prediabetes Other abnormal glucose Anxiety- Primary Anxiety state, unspecified Generalized idiopathic epilepsy and epileptic syndromes, not intractable, 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 PTSD (post-traumatic stress disorder) Posttraumatic stress disorder 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 Anxiety Anxiety state, unspecified PTSD (post-traumatic stress disorder) Posttraumatic stress disorder Trichotillomania Other disorder of impulse control Mood swings- Primary Other specified episodic mood disorder Bipolar disorder, in partial remission, most recent episode manic (HCC) Anxiety Anxiety state, unspecified Sinus tachycardia Other specified cardiac dysrhythmias Fall in home, sequela- Primary Laceration of right knee, subsequent encounter Numbness and tingling of upper extremity- Primary Attention deficit hyperactivity disorder (ADHD), predominantly inattentive type Bipolar disorder, in partial remission, most recent episode manic (HCC) 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 Numbness and tingling of left side of face Urinary tract infection without hematuria, site unspecified Inflammation and stiffening of spine Unspecified inflammatory spondylopathy Mild intermittent asthma without complication (HCC) documented [facility]* Diagnosis Attention deficit hyperactivity disorder, predominantly inattentive type- Primary Bipolar disorder, in partial remission, most recent episode manic (HCC) Dizziness Dizziness and giddiness Nonintractable episodic headache, unspecified headache type Attention deficit hyperactivity disorder, predominantly inattentive type- Primary Anxiety Anxiety state, unspecified Bipolar disorder, in partial remission, most recent episode manic (HCC) History of cholecystectomy Other acquired absence of organ History of acute pancreatitis Anaphylaxis, sequela Cough, unspecified type Bipolar disorder, in partial remission, most recent episode manic (HCC)- Primary Attention deficit hyperactivity disorder (ADHD), 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, predominantly inattentive type Anxiety Anxiety state, unspecified Encounter for well adult exam without abnormal findings- Primary Attention deficit hyperactivity disorder, predominantly inattentive type Anxiety Anxiety state, unspecified Vitamin D deficiency Bipolar disorder, in partial remission, most recent episode manic (HCC) Obesity (BMI 35.0-39.9 without comorbidity) Cervical radiculopathy- Primary Brachial neuritis or radiculitis nos Acute nonintractable headache, unspecified headache type Nausea and vomiting, unspecified vomiting type Localized edema- Primary Edema Obesity (BMI 35.0-39.9 without comorbidity) Injury of right ankle, subsequent encounter Anxiety Anxiety state, unspecified Bipolar disorder, in partial remission, most recent episode manic (HCC) Tremors of nervous system- Primary Mild intermittent asthma without complication (HCC) Moderate persistent asthmatic bronchitis with acute exacerbation (HCC)- Primary Sprain of anterior talofibular ligament of right ankle, subsequent encounter Snoring Other dyspnea and respiratory abnormality 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), predominantly inattentive type Bipolar disorder, in partial remission, most recent episode manic (HCC) Prediabetes Other abnormal glucose Anxiety- Primary Anxiety state, unspecified Generalized idiopathic epilepsy and epileptic syndromes, not intractable, 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 PTSD (post-traumatic stress disorder) Posttraumatic stress disorder 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 Anxiety Anxiety state, unspecified PTSD (post-traumatic stress disorder) Posttraumatic stress disorder Trichotillomania Other disorder of impulse control Mood swings- Primary Other specified episodic mood disorder Bipolar disorder, in partial remission, most recent episode manic (HCC) Anxiety Anxiety state, unspecified Sinus tachycardia Other specified cardiac dysrhythmias Fall in home, sequela- Primary Laceration of right knee, subsequent encounter Attention deficit hyperactivity disorder (ADHD), predominantly inattentive type Bipolar disorder, in partial remission, most recent episode manic (HCC) 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 [facility] Diagnosis Pelvic floor dysfunction- Primary Pelvic muscle wasting Chronic constipation Unspecified constipation Gastroparesis [facility] Diagnosis Attention deficit hyperactivity disorder, predominantly inattentive type- Primary Bipolar disorder, in partial remission, most recent episode manic (HCC) Dizziness Dizziness and giddiness Nonintractable episodic headache, unspecified headache type Attention deficit hyperactivity disorder, predominantly inattentive type- Primary Anxiety Anxiety state, unspecified Bipolar disorder, in partial remission, most recent episode manic (HCC) History of cholecystectomy Other acquired absence of organ History of acute pancreatitis Anaphylaxis, sequela Cough, unspecified type Bipolar disorder, in partial remission, most recent episode manic (HCC)- Primary Attention deficit hyperactivity disorder (ADHD), 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, predominantly inattentive type Anxiety Anxiety state, unspecified Encounter for well adult exam without abnormal findings- Primary Attention deficit hyperactivity disorder, predominantly inattentive type Anxiety Anxiety state, unspecified Vitamin D deficiency Bipolar disorder, in partial remission, most recent episode manic (HCC) Obesity (BMI 35.0-39.9 without comorbidity) Cervical radiculopathy- Primary Brachial neuritis or radiculitis nos Acute nonintractable headache, unspecified headache type Nausea and vomiting, unspecified vomiting type Localized edema- Primary Edema Obesity (BMI 35.0-39.9 without comorbidity) Injury of right ankle, subsequent encounter Anxiety Anxiety state, unspecified Bipolar disorder, in partial remission, most recent episode manic (HCC) Tremors of nervous system- Primary Mild intermittent asthma without complication (HCC) Moderate persistent asthmatic bronchitis with acute exacerbation (HCC)- Primary Sprain of anterior talofibular ligament of right ankle, subsequent encounter Snoring Other dyspnea and respiratory abnormality 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), predominantly inattentive type Bipolar disorder, in partial remission, most recent episode manic (HCC) Prediabetes Other abnormal glucose Anxiety- Primary Anxiety state, unspecified Generalized idiopathic epilepsy and epileptic syndromes, not intractable, 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 PTSD (post-traumatic stress disorder) Posttraumatic stress disorder 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 Anxiety Anxiety state, unspecified PTSD (post-traumatic stress disorder) Posttraumatic stress disorder Trichotillomania Other disorder of impulse control Mood swings- Primary Other specified episodic mood disorder Bipolar disorder, in partial remission, most recent episode manic (HCC) Anxiety Anxiety state, unspecified Sinus tachycardia Other specified cardiac dysrhythmias Fall in home, sequela- Primary Laceration of right knee, subsequent encounter Numbness and tingling- Primary Disturbance of skin sensation Atypical migraine Other forms of migraine, without mention of intractable migraine without mention of status migrainosus documented [facility] Diagnosis Muscle spasm- Primary Spasm of muscle Pelvic floor dysfunction Pelvic muscle wasting Chronic constipation Unspecified constipation [facility] Diagnosis Pelvic floor dysfunction Pelvic muscle wasting Chronic constipation Unspecified constipation [facility] Diagnosis Pelvic floor dysfunction Pelvic muscle wasting Chronic constipation Unspecified constipation [facility] Diagnosis Pelvic floor dysfunction Pelvic muscle wasting Chronic constipation Unspecified constipation [facility] Diagnosis Attention deficit hyperactivity disorder, predominantly inattentive type- Primary Bipolar disorder, in partial remission, most recent episode manic (HCC) Dizziness Dizziness and giddiness Nonintractable episodic headache, unspecified headache type Attention deficit hyperactivity disorder, predominantly inattentive type- Primary Anxiety Anxiety state, unspecified Bipolar disorder, in partial remission, most recent episode manic (HCC) History of cholecystectomy Other acquired absence of organ History of acute pancreatitis Anaphylaxis, sequela Cough, unspecified type Bipolar disorder, in partial remission, most recent episode manic (HCC)- Primary Attention deficit hyperactivity disorder (ADHD), 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, predominantly inattentive type Anxiety Anxiety state, unspecified Encounter for well adult exam without abnormal findings- Primary Attention deficit hyperactivity disorder, predominantly inattentive type Anxiety Anxiety state, unspecified Vitamin D deficiency Bipolar disorder, in partial remission, most recent episode manic (HCC) Obesity (BMI 35.0-39.9 without comorbidity) Cervical radiculopathy- Primary Brachial neuritis or radiculitis nos Acute nonintractable headache, unspecified headache type Nausea and vomiting, unspecified vomiting type Localized edema- Primary Edema Obesity (BMI 35.0-39.9 without comorbidity) Injury of right ankle, subsequent encounter Anxiety Anxiety state, unspecified Bipolar disorder, in partial remission, most recent episode manic (HCC) Tremors of nervous system- Primary Mild intermittent asthma without complication ([facility]) Moderate persistent asthmatic bronchitis with acute exacerbation ([facility])- Primary Sprain of anterior talofibular ligament of right ankle, subsequent encounter Snoring Other dyspnea and respiratory abnormality 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), predominantly inattentive type Bipolar disorder, in partial remission, most recent episode manic (HCC) Prediabetes Other abnormal glucose Anxiety- Primary Anxiety state, unspecified Generalized idiopathic epilepsy and epileptic syndromes, not intractable, 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 PTSD (post-traumatic stress disorder) Posttraumatic stress disorder 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 Anxiety Anxiety state, unspecified PTSD (post-traumatic stress disorder) Posttraumatic stress disorder Trichotillomania Other disorder of impulse control Mood swings- Primary Other specified episodic mood disorder Bipolar disorder, in partial remission, most recent episode manic (HCC) Anxiety Anxiety state, unspecified Sinus tachycardia Other specified cardiac dysrhythmias Fall in home, sequela- Primary Laceration of right knee, subsequent encounter Anxiety Anxiety state, unspecified Bipolar disorder, in partial remission, most recent episode manic (HCC) documented [facility] - Reported* Type Description Date Medical History Anxiety Medical History Depression Medical History Diverticulosis Medical History bipolar Surgical History C section Surgical History hysterectomy Hospitalization History see above Hospitalization History diverticulitis 01/24/18 Hospitalization History NONE ON THE LAST YEAR [facility] Other Hospital course Narrative No data [facility] for this section [facility] No data available [facility] this section [facility] No data available for this section [facility] Outpatient Procedure (Routine) - Authorized Specialty Diagnoses / Procedures Referred By Norma kennedy Referred To Contact [facility] Diagnoses Bilious vomiting with nausea Right sided abdominal pain Procedures EGD DIAGNOSTIC ESOPHAGOGASTRODUODENOSC OP[place] [address] [place] [address] [facility] [address] [place] [id number] Referral ID Status Reason Start Date Expiration Date Visits Requested Visits Authorized [id number] Authorized Auto-Generat ed Referral 05/27/2022 05/27/2023 1 1 * MRI/CT (Routine) - Authorized Specialty Diagnoses / Procedures Referred By Norma kennedy Referred To Contact CT IMAGING Diagnoses Bilious vomiting with nausea Right sided abdominal pain Nausea Procedures CT ABD/PEL WO IVCON CT ABD & PEL[place] [address] [place] [address] Ct Imaging Referral ID Status Reason Start Date Expiration Date Visits Requested Visits Authorized [id number] Authorized Auto-Generat ed Referral 05/27/2022 06/26/2023 1 1 [facility] for referral (narrative)* Diagnostic Procedure Only (Routine) - Authorized Specialty Diagnoses / Procedures Referred By Contac t Referred To Contact US IMAGING Diagnoses Liver lesion Procedures US ABD RT UPPER QUADRANT US ABDOMINAL REAL TIME W/IMAGE LIMITED Carol Winn [place] [id number] [place] [phone] [facility] Referral ID Status Reason Start Date Expiration Date Visits Requested Visits Authorized [id number] Authorized Auto-Generat ed Referral 06/14/2022 07/14/2023 1 1 [facility] for referral (narrative)* Diagnostic Procedure Only (Routine) - Closed Specialty Diagnoses / Procedures Referred By Contac t Referred To Contact [facility] IM[facility] Diagnoses Liver lesion Procedures US ABD RT UPPER QUADRANT US ABDOMINAL REAL TIME W/IMAGE LIMITED Carol Winn [place] [id number] [place] [phone] [place] [id number] Referral ID Status Reason Start Date Expiration Date V isits Requested Visits Authorized [id number] Closed Auto-Generate d Referral 06/14/2022 07/14/2023 1 1 [facility] for referral (narrative)* Diagnostic Procedure Only (Routine) - Closed Specialty Diagnoses / Procedures Referred By Contac t Referred To Contact US IMAGING Diagnoses Elevated LFTs Procedures US ABD RT UPPER QUADRANT US ABDOMINAL REAL [place] W/[place] [address] [place] [address] [place] [address] Referral ID Status Reason Start Date Expiration Date V isits Requested Visits Authorized [id number] Closed Auto-Generate d Referral 11/24/2021 12/24/2022 1 1 [facility] for referral (narrative)* Diagnostic Procedure Only (Routine) - Closed Specialty Diagnoses / Procedures [facility] Ref[facility] To Contact [facility] Diagnoses Nausea Procedures NM GASTRIC EMPTYING SOLID [place] [address] [place] [address] [facility] [address] [id number] Referral ID Status Reason Start Date Expiration Date V isits Requested Visits Authorized [id number] Closed Auto-Generate d Referral 08/31/2022 09/30/2023 1 1 [facility] for referral (narrative)* Outpatient Procedure (Routine) - Authorized Specialty Diagnoses / Procedures [facility] Referred To Contact [facility] [place] Diagnoses Gastroparesis Procedures ECG COMPLETE ECG ROUTINE ECG W/LEAST 12 LDS W/I&R Solo Mora MD [address] [place] [address] [facility] [address] [address] Referral ID Status Reason Start Date Expiration Date Visits Requested Visits Authorized [id number] Authorized Auto-Generat ed Referral 11/02/2023 11/01/2024 1 1 [facility] for referral (narrative)* Outpatient Procedure (Routine) - Authorized Specialty Diagnoses / Procedures [facility] Referred To Contact [facility] Diagnoses Syncope and collapse Procedures ECG COMPLETE ECG ROUTINE ECG W/LEAST 12 LDS W/I&R Solo Mora MD [address] [place] [address] [facility] [address] [address] Referral ID Status Reason Start Date Expiration Date Visits Requested Visits Authorized [id number] Authorized Auto-Generat ed Referral 12/19/2023 12/18/2024 1 1 [facility] for referral (narrative)* Diagnostic Procedure Only (Routine) - Closed Specialty Diagnoses / Procedures [facility] Referred To Contact [facility] Diagnoses Nausea Procedures NM GASTRIC EMPTYING SOLID GASTRIC EMPTYING STUDY Carol Winn MD [id number] [place] [phone] [facility] [address] [place], [place] [id number] Referral ID Status Reason Start Date Expiration Date V isits Requested Visits Authorized [id number] Closed Auto-Generate d Referral 08/31/2022 09/30/2023 1 1 * Outpatient Procedure (Routine) - Closed Specialty Diagnoses / Procedures [facility] Referred To Contact [facility] Diagnoses PUD (peptic ulcer disease) Procedures EGD DIAGNOSTIC ESOPHAGOGASTRODUODENOSC OPY TRANSORAL DIAGNOSTIC Carol Winn MD [id number] [place] [phone] [facility] [address] [place] [address] Referral ID Status Reason Start Date Expiration Date V isits Requested Visits Authorized [id number] Closed Auto-Generate d Referral 06/30/2022 07/01/2023 1 1 [facility] for referral (narrative)* Outpatient Procedure (Routine) - Closed Specialty Diagnoses / Procedures [facility] Ref[facility] Diagnoses PUD (peptic ulcer disease) Procedures EGD DIAGNOSTIC ESOPHAGOGASTRODUODENOSC OPY [place] [address] [place] [address] [facility] [address] [place] [address] Referral ID Status Reason Start Date Expiration Date V isits Requested Visits Authorized [id number] Closed Auto-Generate d Referral 06/30/2022 07/01/2023 1 1 * Outpatient Procedure (Routine) - Closed Specialty Diagnoses / Procedures [facility] Referred To Contact [facility] Diagnoses Bilious vomiting with nausea Right sided abdominal pain Procedures EGD DIAGNOSTIC ESOPHAGOGASTRODUODENOSC OPY [place] [address] [place] [address] [address] Referral ID Status Reason Start Date Expiration Date V isits Requested Visits Authorized [id number] Closed Auto-Generate d Referral 05/27/2022 05/27/2023 1 1 [facility] for referral (narrative)* Outpatient Procedure (Routine) - Authorized Specialty Diagnoses / Procedures [facility] Referred To Contact [facility] Diagnoses BRBPR (bright red blood per rectum) Procedures COLONOSCOPY DIAGNOSTIC COLONOSCOPY FLX DX W/COLLJ SPEC WHEN PFRMD Iliana Mercado PA-C [address] [place] [address] [address] Referral ID Status Reason Start Date Expiration Date Visits Requested Visits Authorized [id number] Authorized Auto-Generat ed Referral 04/26/2024 04/26/2025 1 1 * Outpatient Procedure (Routine) - Authorized Specialty Diagnoses / Procedures Referred By [facility] t Referred To Contact [facility] Diagnoses Elevated LFTs Procedures DDI VIBRATION CONTROLLED TRANSIENT ELASTOGRAPHY (VCTE) LIVER ELASTOGRAPHY W/O IMAG W/I&R Iliana Mercado PA-C [address] [place] [address] [address] [place] [address] Referral ID Status Reason Start Date Expiration Date Visits Requested Visits Authorized [id number] Authorized Auto-Generat ed Referral 04/26/2024 04/26/2025 1 1 [facility] for referral (narrative)* Outpatient Procedure (Routine) - Pending Review Specialty Diagnoses / Procedures Referred By Contac t Referred To Contact [facility] Diagnoses ENGLISH (nonalcoholic steatohepatitis) Procedures LIVER BIOPSY NEEDLE BIOPSY LIVER NEEDLE PERCUTANEOUS Rosario Mcconnell I, MD [address] [place] [address] [address] Referral ID Status Reason Start Date Expiration Date Visits Requested Visits Authorized [id number] Pending Review Auto-Generat ed Referral 05/14/2024 05/14/2025 1 1 [facility] for referral (narrative)* Outpatient Procedure (Routine) - Closed Specialty Diagnoses / Procedures Referred By Contac t Referred To Contact [facility] Diagnoses BRBPR (bright red blood per rectum) Procedures COLONOSCOPY DIAGNOSTIC COLONOSCOPY FLX DX W/COLLJ SPEC WHEN PFRMD Iliana Mercado PA-C [address] [place] [address] [address] Referral ID Status Reason Start Date Expiration Date V isits Requested Visits Authorized [id number] Closed Auto-Generate d Referral 04/26/2024 04/26/2025 1 1 [facility] for visit NarrativePATIENT HERE AT THE REQUEST OF DR. HAGEN FOR ENGLISH & ABNORMAL US. ULTRASOUND AND LABS IN REFERRAL. PATIENT STATES SHE FEELS LETHARGIC & HAS OCCASIONAL ABDOMINAL PAINNorth ACSIAN Other Reason for visit Narrative* Diagnostic Procedure Only (Routine) - Closed Specialty Diagnoses / Procedures Referred By Contac t Referred To Contact US IMAGING Diagnoses Liver lesion Procedures US ABD RT UPPER QUADRANT US ABDOMINAL REAL TIME W/IMAGE LIMITED Carol Winn [place] [address] [place] [address] [place] [address] Referral ID Status Reason Start Date Expiration Date V isits Requested Visits Authorized [id number] Closed Auto-Generate d Referral 06/14/2022 07/14/2023 1 1 [facility] for visit Narrative* Diagnostic Procedure Only (Routine) - Closed Specialty Diagnoses / Procedures Referred By Contac t Referred To Contact [facility] IMAG[facility] Diagnoses Elevated LFTs Procedures US ABD RT UPPER QUADRANT US ABDOMINAL REAL [place] W/[place] [address] [place] [address] [place] [address] Referral ID Status Reason Start Date Expiration Date V isits Requested Visits Authorized [id number] Closed Auto-Generate d Referral 11/24/2021 12/24/2022 1 1 [facility] for visit Narrative* Diagnostic Procedure Only (Routine) - Closed Specialty Diagnoses / Procedures Referred By Contac t Referred To Contact [facility] Diagnoses Nausea Procedures NM GASTRIC EMPTYING SOLID [place] [address] [place] [address] [facility] [address] [place] [address] Referral ID Status Reason Start Date Expiration Date V isits Requested Visits Authorized [id number] Closed Auto-Generate d Referral 08/31/2022 09/30/2023 1 1 [facility] for visit Narrative* Outpatient Procedure (Routine) - Closed Specialty Diagnoses / Procedures Referred By Norma t Referred To Contact [facility] Diagnoses PUD (peptic ulcer disease) Procedures EGD DIAGNOSTIC ESOPHAGOGASTRODUODENOSC OPY TRANSORAL DIAGNOSTIC Carol Winn [place] [address] [place] [address] [facility] [address] [place] [address] Referral ID Status Reason Start Date Expiration Date V isits Requested Visits Authorized [id number] Closed Auto-Generate d Referral 06/30/2022 07/01/2023 1 1 [facility] for visit Narrative* Outpatient Procedure (Routine) - Closed Specialty Diagnoses / Procedures Referred By Norma t Referred To Contact [facility] Diagnoses Bilious vomiting with nausea Right sided abdominal pain Procedures EGD DIAGNOSTIC ESOPHAGOGASTRODUODENOSC OPY [place] [address] [place] [address] [facility] [address] [place] [address] Referral ID Status Reason Start Date Expiration Date V isits Requested Visits Authorized [id number] Closed Auto-Generate d Referral 05/27/2022 05/27/2023 1 1 [facility] for visit Narrative* Rehabilitation - Outpatient (Routine) - Authorized Specialty Diagnoses / Procedures Referred By Norma t Referred To Contact Physical Therapy Diagnoses Cervical radiculopathy Procedures FL OFFICE/OUTPATIENT NEW HIGH MDM 60 MINUTES Giovani Hagen MD 112 [facility] [address] [place] [address] Phone: tel: fax: Zhen Burgess, PT 112 [facility] [address] [place] [address] Phone: tel: fax: Referral ID Status Reason Start Date Expiration Date Visits Requested Visits Authorized [id number] Authorized Specialty Services Required 01/25/2024 10/21/2024 25 25 [facility] for visit Narrative* Rehabilitation - Outpatient (Routine) - Authorized Specialty Diagnoses / Procedures Referred By Norma t Referred To Contact Physical Therapy Diagnoses Cervical radiculopathy Unspecified injury of right ankle, subsequent encounter Procedures FL OFFICE/OUTPATIENT NEW HIGH MDM 60 MINUTES Giovani Hagen MD 112 [facility] [address] [place] [address] Phone: tel: fax: Zhen Burgess, PT [address] [address] Phone: tel: fax: Referral ID Status Reason Start Date Expiration Date Visits Requested Visits Authorized [id number] Authorized Specialty Services Required 01/25/2024 10/21/2024 25 25 [facility] for visit Narrative* Outpatient Procedure (Routine) - Closed Specialty Diagnoses / Procedures Referred By Norma t Referred To Contact [facility] Diagnoses Elevated LFTs Procedures DDI VIBRATION CONTROLLED TRANSIENT ELASTOGRAPHY (VCTE) LIVER ELASTOGRAPHY W/O IMAG W/I&R Iliana Mercado PA-C [address] [place] [address] [address] Referral ID Status Reason Start Date Expiration Date V isits Requested Visits Authorized [id number] Closed Auto-Generate d Referral 04/26/2024 04/26/2025 1 1 [facility] for visit Narrative* Outpatient Procedure (Routine) - Closed Specialty Diagnoses / Procedures Referred By Norma kennedy Referred To Contact [facility] Diagnoses BRBPR (bright red blood per rectum) Procedures COLONOSCOPY DIAGNOSTIC COLONOSCOPY FLX DX W/COLLJ SPEC WHEN PFRMD Iliana Mercado PA-C [address] [place] [address] [address] Referral ID Status Reason Start Date Expiration Date V isits Requested Visits Authorized [id number] Closed Auto-Generate d Referral 04/26/2024 04/26/2025 1 1 [facility] for visit Narrative* Diagnostic Procedure Only (Routine) - Closed Specialty Diagnoses / Procedures Referred By Patrickac t Referred To Contact [facility] Diagnoses Other specified dyspareunia Pelvic pain in female Procedures PELVIC US WHI US PELVIC NONOBSTETRIC REAL-TIME IMAGE COMPLETE Javy Boudreaux MD [address] [address] Phone: tel: fax: Former[facility] Named [facility] [address] [place] [address] Referral ID Status Reason Start Date Expiration Date V isits Requested Visits Authorized [id number] Closed Auto-Generate d Referral 07/10/2024 07/10/2025 1 1 [facility] for visit Narrative* Diagnostic Procedure Only (Routine) - Closed Specialty Diagnoses / Procedures Referred By Contac t Referred To Contact XR IMAGING Diagnoses Chronic idiopathic constipation Procedures XR ABDOMEN 2V ROUTINE SUPINE W UPRIGHT/DECUB/CTL RADIOLOGIC EXAM ABDOMEN 2 VIEWS Iliana Mercado PA-C [address] [place] [address] Phone: tel: fax: [place] [id number] Referral ID Status Reason Start Date Expiration Date V isits Requested Visits Authorized [id number] Closed Auto-Generate d Referral 07/09/2024 08/07/2025 1 1 [facility] for visit Narrative* Diagnostic Procedure Only (Routine) - Authorized Specialty Diagnoses / Procedures Referred By Contac t Referred To Contact XR IMAGING Diagnoses Pelvic floor dysfunction Chronic constipation Procedures XR ABDOMEN 1V SUPINE RADIOLOGIC EXAM ABDOMEN 1 VIEW Mario Harper, [employer] [address] [place] [address] Phone: tel: fax: [place] [id number] Referral ID Status Reason Start Date Expiration Date Visits Requested Visits Authorized [id number] Authorized Auto-Generat ed Referral 10/09/2024 11/08/2025 3 3 [facility] Summary Purpose Family History No Family [...] spine wo contrast Giovani Hagen MD [address] [place] [address] [place] [address] [address] Referral ID Status Reason Start Date Expiration Date V isits Requested Visits Authorized [id number] Pending Review 01/09/2024 07/07/2024 1 1 Specialty Diagnoses / Procedures Referred By Contac t Referred To Contact Diagnoses Attention deficit hyperactivity disorder (ADHD), predominantly inattentive type (CMS/HCC) Giovani Hagen MD 112 [facility] [address] [place] [address] Referral ID Status Reason Start Date Expiration Date Visits Re quested Visits Authorized [id number] Closed 1 1 Specialty Diagnoses / Procedures Referred By Contac t Referred To Contact Diagnoses Attention deficit hyperactivity disorder (ADHD), predominantly inattentive type (CMS/HCC) Giovani Hagen MD [address] [address] Referral ID Status Reason Start Date Expiration Date V isits Requested Visits Authorized [id number] Pending Review 01/08/2024 07/06/2024 1 1 Specialty Diagnoses / Procedures Referred By Contac t Referred To Contact [facility] Diagnoses Syncope, unspecified syncope type Procedures CARDIOVASCULAR MEDICINE OP FOLLOW UP APPT ORDER Solo Mora MD [address] [place] [address] [facility] [address] [address] Referral ID Status Reason Start Date Expiration Date Visits Requested Visits Authorized [id number] Ref Not Required PCP Requested Referral 12/28/2023 12/27/2024 1 1 Specialty Diagnoses / Procedures Referred By Contac t Referred To Contact [facility] Diagnoses Syncope, unspecified syncope type Procedures STRESS ECHO TREADMILL ECHO TTHRC R-T 2D W/WO M-MODE COMPLETE REST&ST Solo Mora MD [address] [place] [address] [facility] [place] [address] [place] [address] Referral ID Status Reason Start Date Expiration Date Visits Requested Visits Authorized [id number] Authorized Auto-Generat ed Referral 12/19/2023 12/18/2024 1 1 Specialty Diagnoses / Procedures Referred By Norma kennedy Referred To Contact CT IMAGING Diagnoses Bilious vomiting with nausea Right sided abdominal pain Nausea Procedures CT ABD/PEL WO IVCON CT ABD & PEL[place] [address] [place] [address] [place] [id number] Referral ID Status Reason Start Date Expiration Date V isits Requested Visits Authorized [id number] Closed Auto-Generate d Referral 05/27/2022 06/26/2023 1 1 Additional Source Comments INFORMATION SOURCE (unrecogn ized section and content) DATE CREATED AUTHOR [facility]09/2018 [facility] [place] DATE CREATED AUTHOR AUTHOR'S ORGANIZ ATION 08/23/2021 [facility] dical Specialist DATE CREATED AUTHOR AUTHOR'S ORGANIZ ATION 07/17/2022 [facility] DATE CREATED AUTHOR AUTHOR'S ORGANIZ ATION 03/22/2023 [facility] DATE CREATED AUTHOR AUTHOR'S ORGANIZ ATION 03/28/2023 [facility] DATE CREATED AUTHOR AUTHOR'S ORGANIZ ATION 04/07/2024 [facility] DATE CREATED AUTHOR AUTHOR'S ORGANIZ ATION 04/12/2024 [facility] DATE CREATED AUTHOR AUTHOR'S ORGANIZ ATION 08/11/2024 [facility] DATE CREATED AUTHOR AUTHOR'S ORGANIZ ATION 09/26/2024 [facility] DATE CREATED AUTHOR AUTHOR'S ORGANIZ ATION 10/16/2024 [facility] Specialists [facility] DATE CREATED AUTHOR AUTHOR'S ORGANIZ ATION 10/25/2024 [facility] DATE CREATED AUTHOR AUTHOR'S ORGANIZ ATION 10/31/2024 [facility] Care Teams (unrecognized sec tion and content) Team Status: Active Member Role Status Dates Giovani Hagen MD Primary Care Provider Active Team Status: Inactive Member Role Status Dates Erwin Hylton MD Attending Provider Active Giovani Hagen MD Primary Care Provider Active Avionics Systems Engineer Relationship Specialty Start Date End Date HieuGiovani Mabalay [address] [place] [address] PCP - General Family Medicine 03/27/19 [employer] Systems Engineer Relationship Specialty Start Date End Date PiersonGiovani Mabalay [address] [place] [address] PCP - General Family Medicine 03/27/19 [employer] Systems Engineer Relationship Specialty Start Date End Date HieuGiovani Mabalay [address] [place] [address] PCP - General Family Medicine 03/27/19 [employer] Systems Engineer Relationship Specialty Start Date End Date PiersonGiovani Mabalay [address] [place] [address] PCP - General Family Medicine 03/27/19 [employer] Systems Engineer Relationship Specialty Start Date End Date PiersonGiovani Mabalay [address] [place] [address] PCP - General Family Medicine 03/27/19 [employer] Systems Engineer Relationship Specialty Start Date End Date PiersonGiovani Mabalay [address] [place] [address] PCP - General Family Medicine 03/27/19 [employer] Systems Engineer Relationship Specialty Start Date End Date HieuGiovani Mabalay [address] [place] [address] PCP - General Family Medicine 03/27/19 [employer] Systems Engineer Relationship Specialty Start Date End Date PiersonGiovani Mabalay [address] [place] [address] PCP - General Family Medicine 03/27/19 [employer] Systems Engineer Relationship Specialty Start Date End Date PiersonGiovani Mabalay [address] [place] [address] PCP - General Family Medicine 03/27/19 [employer] Systems Engineer Relationship Specialty Start Date End Date Giovani Hagen [address] [place] [address] PCP - General Family Medicine 03/27/19 [employer] Systems Engineer Relationship Specialty Start Date End Date Hieu Giovani Yocasta [address] [place] [address] PCP - General Family Medicine 03/27/19 [employer] Systems Engineer Relationship Specialty Start Date End Date HieuGiovani [address] [place] [address] PCP - General Family Medicine 03/27/19 [employer] Systems Engineer Relationship Specialty Start Date End Date HieuGiovani [address] [place] [address] PCP - General Family Medicine 03/27/19 [employer] Systems Engineer Relationship Specialty Start Date End Date Giovani Hagen [address] [place] [address] PCP - General Family Medicine 03/27/19 [employer]ics Systems Engineer Relationship Specialty Start Date End Date Giovani Hagen MD [address] [place] [address] PCP - General Family Medicine 03/27/19 [employer]ics Systems Engineer Relationship Specialty Start Date End Date Giovani Hagen MD [address] [place] [address] PCP - General Family Medicine 03/27/19 [employer]ionics Systems Engineer Relationship Specialty Start Date End Date Giovani Hagen MD [address] [place] [address] PCP - General Family Medicine 03/27/19 [employer]ics Systems Engineer Relationship Specialty Start Date End Date Giovani Hagen MD [address] [address] [place] [address] PCP - General Family Medicine 03/27/19 [employer]ionics Systems Engineer Relationship Specialty Start Date End Date Giovani Hagen MD [address] [place] [address] PCP - General Family Medicine 03/27/19 [employer]ionics Systems Engineer Relationship Specialty Start Date End Date Giovani Hagen MD [address] [place] [address] PCP - General Family Medicine 03/27/19 [employer]ionics Systems Engineer Relationship Specialty Start Date End Date Giovani Hagen MD [address] [place] [address] PCP - General Family Medicine 03/27/19 [employer]ics Systems Engineer Relationship Specialty Start Date End Date Giovani Hagen MD [address] [place] [address] PCP - General Family Medicine 03/27/19 [employer]ionics Systems Engineer Relationship Specialty Start Date End Date Giovani Hagen MD [address] [place] [address] PCP - General Family Medicine 03/27/19 [employer]ionics Systems Engineer Relationship Specialty Start Date End Date Giovani Hagen MD [address] [place] [address] PCP - General Family Medicine 03/27/19 [employer]ionics Systems Engineer Relationship Specialty Start Date End Date Giovani Hagen MD [address] [place] [address] PCP - General Family Medicine 03/27/19 [employer]ics Systems Engineer Relationship Specialty Start Date End Date Giovani Hagen MD [address] [place] [address] PCP - General Family Medicine 03/27/19 Avionics Systems Engineer Relationship Specialty Start Date End Date Giovani Hagen MD [address] [place] [address] PCP - General [facility] Medicine 03/27/19 Avionics Systems Engineer Relationship Specialty Start Date End Date Giovani Hagen MD [address] [place] [address] PCP - Medical [employer] 10/22/18 04/23/99 Giovani Hagen MD [address] [place] [address] PCP - General [facility] Medicine 08/30/22 Av[employer]ics Systems Engineer Relationship Specialty Start Date End Date Giovani Hagen MD [address] [place] [address] PCP - Medical [employer] 10/22/18 04/23/99 Giovani Hagen MD [address] [place] [address] PCP - General Family Medicine 08/30/22 [employer]ionics Systems Engineer Relationship Specialty Start Date End Date Giovani Hagen MD [address] [place] [address] PCP - Medical [employer] 10/22/18 04/23/99 Giovani Hagen MD [address] [place] [address] PCP - General Family Medicine 08/30/22 [employer]ionics Systems Engineer Relationship Specialty Start Date End Date Giovani Hagen MD [address] [place] [address] PCP - Medical [employer] 10/22/18 04/23/99 Giovani Hagen MD [address] [place] [address] PCP - General [facility] Medicine 08/30/22 Avionics Systems Engineer Relationship Specialty Start Date End Date Giovani Hagen MD [address] [place] [address] PCP - Medical [employer] 10/22/18 04/23/99 Giovani Hagen MD [address] [place] [address] PCP - General [facility] Medicine 08/30/22 Avionics Systems Engineer Relationship Specialty Start Date End Date Giovani Hagen MD [address] [place] [address] PCP - Medical [employer] 10/22/18 04/23/99 Giovani Hagen MD [address] [place] [address] PCP - General Family Medicine 08/30/22 Avionics Systems Engineer Relationship Specialty Start Date End Date Giovani Hagen MD [address] [place] [address] PCP - Medical [employer] 10/22/18 04/23/99 Giovani Hagen MD [address] [place] [address] PCP - General Family Medicine 08/30/22 Avionics Systems Engineer Relationship Specialty Start Date End Date Giovani Hagen MD [address] [place] [address] PCP - Medical [employer] 10/22/18 04/23/99 Giovani Hagen MD [address] [place] [address] PCP - General [facility] Medicine 08/30/22 Avionics Systems Engineer Relationship Specialty Start Date End Date Giovani Hagen MD [address] [place] [address] PCP - Medical [employer] 10/22/18 04/23/99 Giovani Hagen MD [address] [place] [address] PCP - General [facility] Medicine 08/30/22 Avionics Systems Engineer Relationship Specialty Start Date End Date Giovani Hagen MD [address] [place] [address] PCP - Medical [employer] 10/22/18 04/23/99 Giovani Hagen MD [address] [place] [address] PCP - General Family Medicine 08/30/22 Avionics Systems Engineer Relationship Specialty Start Date End Date Giovani Hagen MD [address] [place] [address] PCP - Medical [employer] 10/22/18 04/23/99 Giovani Hagen MD [address] [place] [address] PCP - General Family Medicine 08/30/22 Avionics Systems Engineer Relationship Specialty Start Date End Date Giovani Hagen MD [address] [place] [address] PCP - Medical [employer] 10/22/18 04/23/99 Giovani Hagen MD [address] [place] [address] PCP - General [facility] Medicine 08/30/22 Avionics Systems Engineer Relationship Specialty Start Date End Date Giovani Hgaen MD [address] [place] [address] PCP - Medical [employer] 10/22/18 04/23/99 Giovani Hagen MD [address] [place] [address] PCP - General [facility] Medicine 08/30/22 Avionics Systems Engineer Relationship Specialty Start Date End Date Giovani Haegn MD [address] [place] [address] PCP - Medical [employer] 10/22/18 04/23/99 Giovani Hagen MD [address] [place] [address] PCP - General Family Medicine 08/30/22 Avionics Systems Engineer Relationship Specialty Start Date End Date Giovani Hagen MD [address] [place] [address] PCP - Medical [employer] 10/22/18 04/23/99 Giovani Hagen MD [address] [place] [address] PCP - General Family Medicine 08/30/22 Avionics Systems Engineer Relationship Specialty Start Date End Date Giovani Hagen MD [address] [place] [address] PCP - Medical [employer] 10/22/18 04/23/99 Giovani Hagen MD [address] [place] [address] PCP - General [facility] Medicine 08/30/22 Avionics Systems Engineer Relationship Specialty Start Date End Date Giovani Hagen MD [address] [place] [address] PCP - Medical [employer] 10/22/18 04/23/99 Giovani Hagen MD [address] [place] [address] PCP - General [facility] Medicine 08/30/22 Avionics Systems Engineer Relationship Specialty Start Date End Date Giovani Hagen MD [address] [place] [address] PCP - Medical [employer] 10/22/18 04/23/99 Giovani Hagen MD [address] [place] [address] PCP - General Family Medicine 08/30/22 Avionics Systems Engineer Relationship Specialty Start Date End Date Giovani Hagen MD [address] [place] [address] PCP - Medical [employer] 10/22/18 04/23/99 Giovani Hagen MD [address] [place] [address] PCP - General Family Medicine 08/30/22 Avionics Systems Engineer Relationship Specialty Start Date End Date Giovani Hagen MD [address] [place] [address] PCP - Medical [employer] 10/22/18 04/23/99 Giovani Hagen MD [address] [place] [address] PCP - General [facility] Medicine 08/30/22 Avionics Systems Engineer Relationship Specialty Start Date End Date Giovani Hagen MD [address] [place] [address] PCP - Medical [employer] 10/22/18 04/23/99 Giovani Hagen MD [address] [place] [address] PCP - General [facility] Medicine 08/30/22 Avionics Systems Engineer Relationship Specialty Start Date End Date Giovani Hagen MD [address] [place] [address] PCP - Medical [employer] 10/22/18 04/23/99 Giovani Hagen MD [address] [place] [address] PCP - General Family Medicine 08/30/22 [employer]ics Systems Engineer Relationship Specialty Start Date End Date Giovani Hagen MD [address] [place] [address] PCP - Medical [employer] 10/22/18 04/23/99 Giovani Hagen MD [address] [place] [address] PCP - General Family Medicine 08/30/22 Avionics Systems Engineer Relationship Specialty Start Date End Date Giovani Hagen MD [address] [place] [address] PCP - [facility] Commercial 10/22/18 04/23/99 Giovani Hagen MD [address] [place] [address] PCP - General [facility] Medicine 08/30/22 Avionics Systems Engineer Relationship Specialty Start Date End Date Giovani Hagen MD [address] [facility] [address] [place] [address] PCP - General Family Medicine 03/27/19 Avionics Systems Engineer Relationship Specialty Start Date End Date Giovani Hagen MD [address] [place] [address] PCP - [facility] 10/22/18 04/23/99 Giovani Hagen MD [address] [place] [address] PCP - General Family Medicine 08/30/22 Avionics Systems Engineer Relationship Specialty Start Date End Date Giovani Hagen MD [address] [place] [address] PCP - General Family Medicine 03/27/19 Deena Lyn, ISABEL [address] [place] [address] [facility] Family Medicine 04/03/24 Avionics Systems Engineer Relationship Specialty Start Date End Date Giovani Hagen MD [address] [place] [address] PCP - General Family Medicine 03/27/19 Deena Lyn CNP [address] [place] [address] [facility] Family Medicine 04/03/24 Avionics Systems Engineer Relationship Specialty Start Date End Date Giovani Hagen MD [address] [place] [address] PCP - [facility] [place] [facility] 10/22/18 04/23/99 Giovani Hagen MD [address] [facility] [address] [place] [address] PCP - General Family Medicine 08/30/22 Avionics Systems Engineer Relationship Specialty Start Date End Date Giovani Hagen MD [address] [place] [address] PCP - [facility] [place] [facility] 10/22/18 04/23/99 Giovani Hagen MD [address] [place] [address] PCP - General Family Medicine 08/30/22 Avionics Systems Engineer Relationship Specialty Start Date End Date Giovani Hagen MD [address] [place] [address] PCP - [facility] [place] [facility] 10/22/18 04/23/99 Giovani Hagen MD [address] [place] [address] PCP - General Family Medicine 08/30/22 Avionics Systems Engineer Relationship Specialty Start Date End Date Giovani Hagen MD [address] [place] [address] PCP - [facility] [place] [facility] 10/22/18 04/23/99 Giovani Hagen MD [address] [place] [address] PCP - General Family Medicine 08/30/22 Avionics Systems Engineer Relationship Specialty Start Date End Date Giovani Hagen MD [address] [place] [address] PCP - [facility] [place] [facility] 10/22/18 04/23/99 Giovani Hagen MD [address] [place] [place] [address] PCP - General Family Medicine 08/30/22 Avionics Systems Engineer Relationship Specialty Start Date End Date Giovani Hagen MD [address] [place] [address] PCP - [facility] [place] [facility] 10/22/18 04/23/99 Giovani Hagen MD [address] [place] [address] PCP - General Family Medicine 08/30/22 Avionics Systems Engineer Relationship Specialty Start Date End Date Giovani Hagen MD [address] [place] [address] PCP - [facility] [place] [employer] 10/22/18 04/23/99 Giovani Hagen MD [address] [place] [address] PCP - General Family Medicine 08/30/22 Avionics Systems Engineer Relationship Specialty Start Date End Date Giovani Hagen MD [address] [place] [address] [place] [address] PCP - General Family Medicine 03/27/19 Deena Lyn CNP [address] [place] [place] [address] Referring Family Medicine 04/03/24 Avionics Systems Engineer Relationship Specialty Start Date End Date Giovani Hagen MD [address] [place] [address] PCP - [facility] [place] [facility] 10/22/18 04/23/99 Giovani Hagen MD [address] [place] [place] [address] PCP - General Family Medicine 08/30/22 Avionics Systems Engineer Relationship Specialty Start Date End Date Giovani Hagen MD [address] [place] [address] PCP - Medical [place] [facility] 10/22/18 04/23/99 Giovani Hagen MD [address] [place] [address] PCP - General Family Medicine 08/30/22 Avionics Systems Engineer Relationship Specialty Start Date End Date Giovani Hagen MD [address] [place] [address] PCP - Medical [place] [facility] 10/22/18 04/23/99 Giovani Hagen MD [address] [place] [address] [place] [address] PCP - General Family Medicine 08/30/22 Avionics Systems Engineer Relationship Specialty Start Date End Date Giovani Hagen MD [address] [place] [address] [place] [address] PCP - General Family Medicine 03/27/19 Deena Lyn CNP [address] [place] [address] [place] [address] Referring Family Medicine 04/03/24 Avionics Systems Engineer Relationship Specialty Start Date End Date Giovani Hagen MD [address] [place] [address] [place] [address] PCP - General Family Medicine 03/27/19 Deena Lyn, ISABEL [address] [place] [address] [place] [address] Referring Family Medicine 04/03/24 Avionics Systems Engineer Relationship Specialty Start Date End Date Giovani Hagen MD [address] [place] [address] [place] [address] PCP - General Family Medicine 03/27/19 Deena Lyn, ISABEL [address] [place] [address] [place] [address] Referring Family Medicine 04/03/24 Avionics Systems Engineer Relationship Specialty Start Date End Date Giovani Hagen MD [address] [place] [address] [place] [address] PCP - Medical [place] [facility] 10/22/18 04/23/99 Giovani Hagen MD [address] [place] [address] PCP - General Family Medicine 08/30/22 Avionics Systems Engineer Relationship Specialty Start Date End Date Giovani Hagen MD [address] [place] [place] [address] PCP - Medical [place] [facility] 10/22/18 04/23/99 Giovani Hagen MD [address] [place] [place] [address] PCP - General Family Medicine 08/30/22 [employer]ionics Systems Engineer Relationship Specialty Start Date End Date Giovani Hagen MD [address] [place] [address] [place] [address] PCP - General Family Medicine 03/27/19 Deena Lyn, SWITCHBOARD TROUBLESHOOTER [address] [place] [place] [address] Referring Family Medicine 04/03/24 [employer]ionics Systems Engineer Relationship Specialty Start Date End Date Giovani Hagen MD [address] [place] [address] [place] [address] PCP - General Family Medicine 03/27/19 Deena Lyn, SWITCHBOARD TROUBLESHOOTER [address] [place] [place] [address] Referring Family Medicine 04/03/24 [employer]ionics Systems Engineer Relationship Specialty Start Date End Date Giovani Hagen MD [address] [place] [address] PCP - Medical [place] [facility] 10/22/18 04/23/99 Giovani Hagen MD [address] [place] [address] PCP - General Family Medicine 08/30/22 Avionics Systems Engineer Relationship Specialty Start Date End Date Giovani Hagen MD [address] [place] [address] PCP - Medical [place] [facility] 10/22/18 04/23/99 Giovani Hagen MD [address] [place] [address] PCP - General Family Medicine 08/30/22 [employer]ionics Systems Engineer Relationship Specialty Start Date End Date Giovani Hagen MD [address] [place] [address] [place] [address] PCP - General Family Medicine 03/27/19 Deena Lyn, ISABEL [address] [place] [address] Referring Family Medicine 04/03/24 Avionics Systems Engineer Relationship Specialty Start Date End Date Giovani Hagen MD [address] [place] [address] [place] [address] PCP - Medical [facility] 10/22/18 04/23/99 Giovani Hagen MD [address] [place] [address] PCP - General Family Medicine 08/30/22 Avionics Systems Engineer Relationship Specialty Start Date End Date Giovani Hagen MD [address] [place] [address] PCP - Medical [facility] 10/22/18 04/23/99 Giovani Hagen MD [address] [place] [address] PCP - General Family Medicine 08/30/22 [employer]ionics Systems Engineer Relationship Specialty Start Date End Date Giovani Hagen MD [address] [place] [address] [place] [address] PCP - General Family Medicine 03/27/19 Deena Lyn, SWITCHBOARD TROUBLESHOOTER [address] [place] [address] Referring Family Medicine 04/03/24 [employer]ics Systems Engineer Relationship Specialty Start Date End Date Giovani Hagen MD [address] [place] [address] [place] [address] PCP - General Family Medicine 03/27/19 Deena Lyn, SWITCHBOARD TROUBLESHOOTER [address] [place] [address] Referring Family Medicine 04/03/24 [employer]ics Systems Engineer Relationship Specialty Start Date End Date Giovani Hagen MD [address] [place] [address] PCP - Medical [employer] 10/22/18 04/23/99 Giovani Hagen MD [address] [place] [address] PCP - General Family Medicine 08/30/22 Avionics Systems Engineer Relationship Specialty Start Date End Date Giovani Hagen MD [address] [place] [place] [address] PCP - Medical [facility] 10/22/18 04/23/99 Giovani Hagen MD [address] [place] [address] PCP - General Family Medicine 08/30/22 Avionics Systems Engineer Relationship Specialty Start Date End Date Giovani Hagen MD [address] [place] [address] PCP - Medical [employer] 10/22/18 04/23/99 Giovani Hagen MD [address] [place] [address] PCP - General Family Medicine 08/30/22 [employer]ionics Systems Engineer Relationship Specialty Start Date End Date Giovani Hagen MD [address] [place] [address] PCP - Medical [employer] 10/22/18 04/23/99 Giovani Hagen MD [address] [place] [address] PCP - General [facility] Medicine 08/30/22 Avionics Systems Engineer Relationship Specialty Start Date End Date Giovani Hagen MD [address] [place] [address] PCP - Medical Hydrocapsule 10/22/18 04/23/99 Giovani Hagen MD [address] [place] [address] PCP - General [facility] Medicine 08/30/22 Avionics Systems Engineer Relationship Specialty Start Date End Date Giovani Hagen MD [address] [place] [address] PCP - Medical Hydrocapsule 10/22/18 04/23/99 Giovani Hagen MD [address] [place] [address] PCP - General Family Medicine 08/30/22 Avionics Systems Engineer Relationship Specialty Start Date End Date Giovani Hagen MD [address] [place] [address] PCP - Medical [employer] 10/22/18 04/23/99 Giovani Hagen MD [address] [place] [address] PCP - General Family Medicine 08/30/22 Avionics Systems Engineer Relationship Specialty Start Date End Date Giovani Hagen MD [address] [place] [address] PCP - Medical [employer] 10/22/18 04/23/99 Giovani Hagen MD [address] [place] [address] PCP - General Family Medicine 08/30/22 Avionics Systems Engineer Relationship Specialty Start Date End Date Giovani Hagen MD [address] [address] [place] [address] PCP - General Family Medicine 03/27/19 Deena Lyn, SWITCHBOARD TROUBLESHOOTER [address] [place] [address] Referring Family Medicine 04/03/24 Darwin Starr DO [address] [facility] [place] [address] Referring Chief Payroll Clerk 07/02/24 [employer]ics Systems Engineer Relationship Specialty Start Date End Date Giovani Hagen MD [address] [address] [place] [address] PCP - General Family Medicine 03/27/19 Deena Lyn, ISABEL [address] [place] [address] Referring Family Medicine 04/03/24 Darwin Starr DO [address] [place] [address] [place] [address] Referring Chief Payroll Clerk 07/02/24 Avionics Systems Engineer Relationship Specialty Start Date End Date Giovani Hagen MD [address] [place] [address] PCP - Medical [employer] 10/22/18 04/23/99 Giovani Hagen MD [address] [place] [address] PCP - General Family Medicine 08/30/22 Avionics Systems Engineer Relationship Specialty Start Date End Date Giovani Hagen MD [address] [place] [address] PCP - Medical [employer] 10/22/18 04/23/99 Giovani Hagen MD [address] [place] [address] PCP - General Family Medicine 08/30/22 Avionics Systems Engineer Relationship Specialty Start Date End Date Giovani Hagen MD [address] [place] [address] PCP - Medical [employer] 10/22/18 04/23/99 Giovani Hagen MD [address] [place] [address] PCP - General Family Medicine 08/30/22 Avionics Systems Engineer Relationship Specialty Start Date End Date Giovani Hagen MD [address] [place] [address] PCP - Medical [employer] 10/22/18 04/23/99 Giovani Hagen MD [address] [place] [address] PCP - General Family Medicine 08/30/22 Avionics Systems Engineer Relationship Specialty Start Date End Date Giovani Hagen MD [address] [place] [address] PCP - Medical [employer] 10/22/18 04/23/99 Giovani Hagen MD [address] [facility] [address] [place] [address] PCP - General Family Medicine 08/30/22 Team [...] Active S tart: August 17, 2024 Dank Grene MD Admit Provide r, Attending Provider, Other Provider Active Start: August 17, 2024 [employer] Systems Engineer Relationship Specialty Start Date End Date Giovani Hagen MD [address] [facility] [address] [place] [address] PCP - Medical Hydrocapsule 10/22/18 04/23/99 Giovani Hagen MD [address] [facility] [address] [place] [address] PCP - General Family Medicine 08/30/22 Avionics Systems Engineer Relationship Specialty Start Date End Date Giovani Hagen MD [address] [facility] [address] [place] [address] PCP - Medical Hydrocapsule 10/22/18 04/23/99 Giovani Hagen MD [address] [address] [place] [address] PCP - General Family Medicine 08/30/22 Avionics Systems Engineer Relationship Specialty Start Date End Date Giovani Hagen MD [address] [place] [address] [place] [address] PCP - General Family Medicine 03/27/19 Deena Lyn, SWITCHBOARD TROUBLESHOOTER [address] [place] [address] Referring Family Medicine 04/03/24 Darwin Starr DO [address] [place] [address] [place] [address] Referring Chief Payroll Clerk 07/02/24 [employer]ionics Systems Engineer Relationship Specialty Start Date End Date Giovani Hagen MD [address] [place] [address] PCP - Medical [employer] 10/22/18 04/23/99 Giovani Hagen MD [address] [place] [address] PCP - General Family Medicine 08/30/22 Avionics Systems Engineer Relationship Specialty Start Date End Date Giovani Hagen MD [address] [place] [address] PCP - Medical [employer] 10/22/18 04/23/99 Giovani Hagen MD [address] [place] [address] PCP - General Family Medicine 08/30/22 Avionics Systems Engineer Relationship Specialty Start Date End Date Giovani Hagen MD [address] [place] [address] PCP - Medical [employer] 10/22/18 04/23/99 Giovani Hagen MD [address] [place] [address] PCP - General Family Medicine 08/30/22 Avionics Systems Engineer Relationship Specialty Start Date End Date Giovani Hagen MD [address] [address] [place] [address] PCP - Medical [employer] 10/22/18 04/23/99 Giovani Hagen MD [address] [place] [address] [place] [address] PCP - General Family Medicine 08/30/22 Avionics Systems Engineer Relationship Specialty Start Date End Date Giovani Hagen MD [address] [facility] [address] [place] [address] PCP - General Family Medicine 03/27/19 Deena Lyn, ISABEL [address] [place] [address] Referring Family Medicine 04/03/24 Darwin Starr DO [address] [place] [address] [place] [address] Referring Chief Payroll Clerk 07/02/24 [employer]ics Systems Engineer Relationship Specialty Start Date End Date Giovani Hagen MD [address] [place] [address] PCP - Medical [employer] 10/22/18 04/23/99 Giovani Hagen MD [address] [address] [place] [address] PCP - General Family Medicine 08/30/22 Avionics Systems Engineer Relationship Specialty Start Date End Date Giovani Hagen MD [address] [place] [address] PCP - Medical [employer] 10/22/18 04/23/99 Giovani Hagen MD [address] [address] [place] [address] PCP - General Family Medicine 08/30/22 Avionics Systems Engineer Relationship Specialty Start Date End Date Giovani Hagen MD [address] [facility] [address] [place] [address] PCP - General Family Medicine 03/27/19 Deena Lyn CNP [address] [facility] [address] [place] [address] Referring Family Medicine 04/03/24 Darwin Starr DO [address] [place] [address] Dr [place], [place] [id number] Referring Chief Payroll Clerk 07/02/24 [employer]ics Systems Engineer Relationship Specialty Start Date End Date Giovani Hagen MD [address] [facility] [address] [place] [address] PCP - Medical [employer] 10/22/18 04/23/99 Giovani Hagen MD [address] [facility] [address] [place] [address] PCP - General Family Medicine 08/30/22 Avionics Systems Engineer Relationship Specialty Start Date End Date Giovani Hagen MD [address] [facility] [address] [place] [address] PCP - Medical [employer] 10/22/18 04/23/99 Giovani Hagen MD [address] [place] [address] [place] [address] PCP - General Family Medicine 08/30/22 Avionics Systems Engineer Relationship Specialty Start Date End Date Giovani Hagen MD [address] [place] [address] PCP - Medical [employer] 10/22/18 04/23/99 Giovani Hagen MD [address] [place] [address] PCP - General Family Medicine 08/30/22 Avionics Systems Engineer Relationship Specialty Start Date End Date Giovani Hagen MD [address] [place] [address] [place] [address] PCP - General Family Medicine 03/27/19 Deena Lyn CNP [address] [place] [address] Referring Family Medicine 04/03/24 Darwin Starr DO [address] [place] [address] [place] [address] Referring Chief Payroll Clerk 07/02/24 [employer]ics Systems Engineer Relationship Specialty Start Date End Date Giovani Hagen MD [address] [place] [address] PCP - Medical [employer] 10/22/18 04/23/99 Giovani Hagen MD [address] [place] [address] PCP - General Family Medicine 08/30/22 Avionics Systems Engineer Relationship Specialty Start Date End Date Giovani Hagen MD [address] [place] [address] PCP - Medical [employer] 10/22/18 04/23/99 Giovani Hagen MD [address] [place] [address] PCP - General Family Medicine 08/30/22 Avionics Systems Engineer Relationship Specialty Start Date End Date Giovani Hagen MD [address] [place] [address] [place] [address] PCP - General Family Medicine 03/27/19 Deena Lyn, ISABEL [address] [facility] [address] [place] [address] Referring Family Medicine 04/03/24 Darwin Starr DO [address] [place] [address] Referring Chief Payroll Clerk 07/02/24 [employer]ionics Systems Engineer Relationship Specialty Start Date End Date Giovani Hagen MD [address] [facility] [address] [place] [address] PCP - General Family Medicine 03/27/19 Deena Lyn, ISABEL [address] [facility] [address] [place] [address] Referring Family Medicine 04/03/24 Darwin Starr DO [address] [place] [address] Referring Chief Payroll Clerk 07/02/24 Avionics Systems Engineer Relationship Specialty Start Date End Date Giovani Hagen MD [address] [place] [address] PCP - Medical [employer] 10/22/18 04/23/99 Giovani Hagen MD [address] [place] [address] [place] [address] PCP - General Family Medicine 08/30/22 Avionics Systems Engineer Relationship Specialty Start Date End Date Giovani Hagen MD [address] [place] [address] [place] [address] PCP - General Family Medicine 03/27/19 Deena Lyn, ISABEL [address] [place] [address] Referring Family Medicine 04/03/24 Darwin Starr DO [facility] [place] [address] Referring Chief Payroll Clerk 07/02/24 [employer]ionics Systems Engineer Relationship Specialty Start Date End Date Giovani Hagen MD [address] [place] [address] [place] [address] PCP - General Family Medicine 03/27/19 Deena Lyn, ISABEL [address] [place] [address] Referring Family Medicine 04/03/24 Darwin Starr DO [facility] [place] [address] Referring Chief Payroll Clerk 07/02/24 [employer]ionics Systems Engineer Relationship Specialty Start Date End Date Giovani Hagen MD [address] [place] [address] PCP - Medical [employer] 10/22/18 04/23/99 Giovani Hagen MD [address] [facility] [place] [address] PCP - General Family Medicine 08/30/22 Source Comments (unrecognize d section and content) In the event this informatio n is protected by the Federal Confidentiality of Alcohol and Drug Abuse Patient Records regulations: The Federal rules restrict any use of the information to criminally investigate or prosecute any alcohol or drug abuse patient.[facility] the event this information is protected by the Federal Confidentiality of Alcohol and Drug Abuse Patient Records regulations: The Federal rules restrict any use of the information to criminally investigate or prosecute any alcohol or drug abuse patient.[facility] HospitalIn the event this information is protected by the Federal Confidentiality of Alcohol and Drug Abuse Patient Records regulations: The Federal rules restrict any use of the information to criminally investigate or prosecute any alcohol or drug abuse patient.[facility] HospitalIn the event this information is protected by the Federal Confidentiality of Alcohol and Drug Abuse Patient Records regulations: The Federal rules restrict any use of the information to criminally investigate or prosecute any alcohol or drug abuse patient.[facility] HospitalIn the event this information is protected by the Federal Confidentiality of Alcohol and Drug Abuse Patient Records regulations: The Federal rules restrict any use of the information to criminally investigate or prosecute any alcohol or drug abuse patient.[facility] HospitalIn the event this information is protected by the Federal Confidentiality of Alcohol and Drug Abuse Patient Records regulations: The Federal rules restrict any use of the information to criminally investigate or prosecute any alcohol or drug abuse patient.[facility] HospitalIn the event this information is protected by the Federal Confidentiality of Alcohol and Drug Abuse Patient Records regulations: The Federal rules restrict any use of the information to criminally investigate or prosecute any alcohol or drug abuse patient.[facility] HospitalIn the event this information is protected by the Federal Confidentiality of Alcohol and Drug Abuse Patient Records regulations: The Federal rules restrict any use of the information to criminally investigate or prosecute any alcohol or drug abuse patient.[facility] HospitalIn the event this information is protected by the Federal Confidentiality of Alcohol and Drug Abuse Patient Records regulations: The Federal rules restrict any use of the information to criminally investigate or prosecute any alcohol or drug abuse patient.[facility] HospitalIn the event this information is protected by the Federal Confidentiality of Alcohol and Drug Abuse Patient Records regulations: The Federal rules restrict any use of the information to criminally investigate or prosecute any alcohol or drug abuse patient.[facility] HospitalIn the event this information is protected by the Federal Confidentiality of Alcohol and Drug Abuse Patient Records regulations: The Federal rules restrict any use of the information to criminally investigate or prosecute any alcohol or drug abuse patient.[facility] HospitalIn the event this information is protected by the Federal Confidentiality of Alcohol and Drug Abuse Patient Records regulations: The Federal rules restrict any use of the information to criminally investigate or prosecute any alcohol or drug abuse patient.[facility] HospitalIn the event this information is protected by the Federal Confidentiality of Alcohol and Drug Abuse Patient Records regulations: The Federal rules restrict any use of the information to criminally investigate or prosecute any alcohol or drug abuse patient.[facility] HospitalIn the event this information is protected by the Federal Confidentiality of Alcohol and Drug Abuse Patient Records regulations: The Federal rules restrict any use of the information to criminally investigate or prosecute any alcohol or drug abuse patient.[facility] HospitalIn the event this information is protected by the Federal Confidentiality of Alcohol and Drug Abuse Patient Records regulations: The Federal rules restrict any use of the information to criminally investigate or prosecute any alcohol or drug abuse patient.[facility] HospitalIn the event this information is protected by the Federal Confidentiality of Alcohol and Drug Abuse Patient Records regulations: The Federal rules restrict any use of the information to criminally investigate or prosecute any alcohol or drug abuse patient.[facility] HospitalIn the event this information is protected by the Federal Confidentiality of Alcohol and Drug Abuse Patient Records regulations: The Federal rules restrict any use of the information to criminally investigate or prosecute any alcohol or drug abuse patient.[facility] HospitalIn the event this information is protected by the Federal Confidentiality of Alcohol and Drug Abuse Patient Records regulations: The Federal rules restrict any use of the information to criminally investigate or prosecute any alcohol or drug abuse patient.[facility] HospitalIn the event this information is protected by the Federal Confidentiality of Alcohol and Drug Abuse Patient Records regulations: The Federal rules restrict any use of the information to criminally investigate or prosecute any alcohol or drug abuse patient.[facility] HospitalIn the event this information is protected by the Federal Confidentiality of Alcohol and Drug Abuse Patient Records regulations: The Federal rules restrict any use of the information to criminally investigate or prosecute any alcohol or drug abuse patient.[facility] HospitalIn the event this information is protected by the Federal Confidentiality of Alcohol and Drug Abuse Patient Records regulations: The Federal rules restrict any use of the information to criminally investigate or prosecute any alcohol or drug abuse patient.[facility] HospitalIn the event this information is protected by the Federal Confidentiality of Alcohol and Drug Abuse Patient Records regulations: The Federal rules restrict any use of the information to criminally investigate or prosecute any alcohol or drug abuse patient.[facility] HospitalIn the event this information is protected by the Federal Confidentiality of Alcohol and Drug Abuse Patient Records regulations: The Federal rules restrict any use of the information to criminally investigate or prosecute any alcohol or drug abuse patient.[facility] HospitalIn the event this information is protected by the Federal Confidentiality of Alcohol and Drug Abuse Patient Records regulations: The Federal rules restrict any use of the information to criminally investigate or prosecute any alcohol or drug abuse patient.[facility] HospitalIn the event this information is protected by the Federal Confidentiality of Alcohol and Drug Abuse Patient Records regulations: The Federal rules restrict any use of the information to criminally investigate or prosecute any alcohol or drug abuse patient.[facility] HospitalIn the event this information is protected by the Federal Confidentiality of Alcohol and Drug Abuse Patient Records regulations: The Federal rules restrict any use of the information to criminally investigate or prosecute any alcohol or drug abuse patient.[facility] HospitalIn the event this information is protected by the Federal Confidentiality of Alcohol and Drug Abuse Patient Records regulations: The Federal rules restrict any use of the information to criminally investigate or prosecute any alcohol or drug abuse patient.[facility] HospitalIn the event this information is protected by the Federal Confidentiality of Alcohol and Drug Abuse Patient Records regulations: The Federal rules restrict any use of the information to criminally investigate or prosecute any alcohol or drug abuse patient.[facility] HospitalIn the event this information is protected by the Federal Confidentiality of Alcohol and Drug Abuse Patient Records regulations: The Federal rules restrict any use of the information to criminally investigate or prosecute any alcohol or drug abuse patient.[facility] HospitalIn the event this information is protected by the Federal Confidentiality of Alcohol and Drug Abuse Patient Records regulations: The Federal rules restrict any use of the information to criminally investigate or prosecute any alcohol or drug abuse patient.[facility] HospitalIn the event this information is protected by the Federal Confidentiality of Alcohol and Drug Abuse Patient Records regulations: The Federal rules restrict any use of the information to criminally investigate or prosecute any alcohol or drug abuse patient.[facility] HospitalIn the event this information is protected by the Federal Confidentiality of Alcohol and Drug Abuse Patient Records regulations: The Federal rules restrict any use of the information to criminally investigate or prosecute any alcohol or drug abuse patient.[facility] HospitalIn the event this information is protected by the Federal Confidentiality of Alcohol and Drug Abuse Patient Records regulations: The Federal rules restrict any use of the information to criminally investigate or prosecute any alcohol or drug abuse patient.[facility] HospitalIn the event this information is protected by the Federal Confidentiality of Alcohol and Drug Abuse Patient Records regulations: The Federal rules restrict any use of the information to criminally investigate or prosecute any alcohol or drug abuse patient.[facility] HospitalIn the event this information is protected by the Federal Confidentiality of Alcohol and Drug Abuse Patient Records regulations: The Federal rules restrict any use of the information to criminally investigate or prosecute any alcohol or drug abuse patient.[facility] HospitalIn the event this information is protected by the Federal Confidentiality of Alcohol and Drug Abuse Patient Records regulations: The Federal rules restrict any use of the information to criminally investigate or prosecute any alcohol or drug abuse patient.[facility] HospitalIn the event this information is protected by the Federal Confidentiality of Alcohol and Drug Abuse Patient Records regulations: The Federal rules restrict any use of the information to criminally investigate or prosecute any alcohol or drug abuse patient.[facility] HospitalIn the event this information is protected by the Federal Confidentiality of Alcohol and Drug Abuse Patient Records regulations: The Federal rules restrict any use of the information to criminally investigate or prosecute any alcohol or drug abuse patient.[facility] HospitalIn the event this information is protected by the Federal Confidentiality of Alcohol and Drug Abuse Patient Records regulations: The Federal rules restrict any use of the information to criminally investigate or prosecute any alcohol or drug abuse patient.[facility] HospitalIn the event this information is protected by the Federal Confidentiality of Alcohol and Drug Abuse Patient Records regulations: The Federal rules restrict any use of the information to criminally investigate or prosecute any alcohol or drug abuse patient.[facility] HospitalIn the event this information is protected by the Federal Confidentiality of Alcohol and Drug Abuse Patient Records regulations: The Federal rules restrict any use of the information to criminally investigate or prosecute any alcohol or drug abuse patient.[facility] HospitalIn the event this information is protected by the Federal Confidentiality of Alcohol and Drug Abuse Patient Records regulations: The Federal rules restrict any use of the information to criminally investigate or prosecute any alcohol or drug abuse patient.[facility] Hospital[facility] the event this information is protected by the Federal Confidentiality of Alcohol and Drug Abuse Patient Records regulations: The Federal rules restrict any use of the information to criminally investigate or prosecute any alcohol or drug abuse patient.[facility] the event this information is protected by the Federal Confidentiality of Alcohol and Drug Abuse Patient Records regulations: The Federal rules restrict any use of the information to criminally investigate or prosecute any alcohol or drug abuse patient.[facility] the event this information is protected by the Federal Confidentiality of Alcohol and Drug Abuse Patient Records regulations: The Federal rules restrict any use of the information to criminally investigate or prosecute any alcohol or drug abuse patient.[facility] HospitalIn the event this information is protected by the Federal Confidentiality of Alcohol and Drug Abuse Patient Records regulations: The Federal rules restrict any use of the information to criminally investigate or prosecute any alcohol or drug abuse patient.[facility] HospitalIn the event this information is protected by the Federal Confidentiality of Alcohol and Drug Abuse Patient Records regulations: The Federal rules restrict any use of the information to criminally investigate or prosecute any alcohol or drug abuse patient.[facility] HospitalIn the event this information is protected by the Federal Confidentiality of Alcohol and Drug Abuse Patient Records regulations: The Federal rules restrict any use of the information to criminally investigate or prosecute any alcohol or drug abuse patient.[facility] HospitalIn the event this information is protected by the Federal Confidentiality of Alcohol and Drug Abuse Patient Records regulations: The Federal rules restrict any use of the information to criminally investigate or prosecute any alcohol or drug abuse patient.[facility] HospitalIn the event this information is protected by the Federal Confidentiality of Alcohol and Drug Abuse Patient Records regulations: The Federal rules restrict any use of the information to criminally investigate or prosecute any alcohol or drug abuse patient.[facility] HospitalIn the event this information is protected by the Federal Confidentiality of Alcohol and Drug Abuse Patient Records regulations: The Federal rules restrict any use of the information to criminally investigate or prosecute any alcohol or drug abuse patient.[facility] HospitalIn the event this information is protected by the Federal Confidentiality of Alcohol and Drug Abuse Patient Records regulations: The Federal rules restrict any use of the information to criminally investigate or prosecute any alcohol or drug abuse patient.[facility] HospitalIn the event this information is protected by the Federal Confidentiality of Alcohol and Drug Abuse Patient Records regulations: The Federal rules restrict any use of the information to criminally investigate or prosecute any alcohol or drug abuse patient.[facility] HospitalIn the event this information is protected by the Federal Confidentiality of Alcohol and Drug Abuse Patient Records regulations: The Federal rules restrict any use of the information to criminally investigate or prosecute any alcohol or drug abuse patient.[facility] HospitalIn the event this information is protected by the Federal Confidentiality of Alcohol and Drug Abuse Patient Records regulations: The Federal rules restrict any use of the information to criminally investigate or prosecute any alcohol or drug abuse patient.[facility] HospitalIn the event this information is protected by the Federal Confidentiality of Alcohol and Drug Abuse Patient Records regulations: The Federal rules restrict any use of the information to criminally investigate or prosecute any alcohol or drug abuse patient.[facility] HospitalIn the event this information is protected by the Federal Confidentiality of Alcohol and Drug Abuse Patient Records regulations: The Federal rules restrict any use of the information to criminally investigate or prosecute any alcohol or drug abuse patient.[facility] HospitalIn the event this information is protected by the Federal Confidentiality of Alcohol and Drug Abuse Patient Records regulations: The Federal rules restrict any use of the information to criminally investigate or prosecute any alcohol or drug abuse patient.[facility] Reason for Visit (unrecogniz ed section [...] & [place] [address] [place] [address] [place] [address] Referral ID Status Reason Start Date Expiration Date V isits Requested Visits Authorized [id number] Closed Auto-Generate d Referral 05/27/2022 06/26/2023 1 [...] Received Outside Medical Records [facility] [place] Reason Comments Received Outside Medical Records Cardio Clearance [facility] [place] Reason Comments Back Pain Reason Comments Dyspareunia Reason Onset Date Comments Med Refill 04/19/2024 Reason Comments Recheck Reason Onset Date Comments Med Refill 04/30/2024 Reason Onset Date Comments Med Refill 04/30/2024 Reason Comments Patient Update 04/09/24 Echo Faxed Reason Comments Ankle Sprain Specialty Diagnoses / Procedures Referred By Contac t Referred To Contact Podiatry Diagnoses Sprain of anterior talofibular ligament of right ankle, subsequent encounter Procedures FL OFFICE/OUTPATIENT NEW HIGH MDM Giovani Hagen MD [address] [place] [address] Phone: tel: fax: Prateek Pedraza DPM [address] [place] [address] Phone: tel: fax: Referral ID Status Reason Start Date Expiration Date V isits Requested Visits Authorized [id number] Closed Specialty Services Required 04/22/2024 10/19/2024 1 [...] WK 2 post op Reason Comments Painful [place] bleeding with intercourse Reason Comments Post-op 3 [...] Comments Foot/ankle Post-op WK 12 post op Reason Comments ER Follow-up Reason Comments Hemorrhoids Reason Comments PT Eval Specialty Diagnoses / Procedures Referred By Contac t Referred To Contact [facility] Diagnoses Pelvic floor dysfunction Chronic constipation Procedures CONSULT TO PHYSICAL THERAPY PHYSICAL THERAPY EVALUATION HIGH COMPLEX 45 MINS THERAPEUTIC EXERCISES RE, EA 15 MIN. Mario Harper APRN.[employer] [address] [place] [address] Phone: tel: fax: [facility] [address] [place] [address] Referral ID Status Reason Start Date Expiration Date Visits Requested Visits Authorized [id number] Authorized Auto-Generat ed Referral 10/23/2023 10/21/2024 25 25 Reason Comments Radio Gen RMP Specialty Diagnoses / Procedures Referred By Contac t Referred To Contact XR IMAGING Diagnoses Pelvic floor dysfunction Chronic constipation Procedures XR ABDOMEN 1V SUPINE RADIOLOGIC EXAM ABDOMEN 1 VIEW Mario Harper APRN.[employer] [address] [place] [address] Phone: tel: fax: [place] [phone] Referral ID Status Reason Start Date Expiration Date Visits Requested Visits Authorized [id number] Authorized Auto-Generat ed Referral 10/09/2024 11/08/2025 3 3 Goals (unrecognized section and content) Goals may [...] BE BASED ON THE PRIMARY CLINICAL RECORDS. [facility]. provides no warranty or guarantee of the accuracy or completeness of information in this document.
--- OUTSIDE RECORDS SUMMARY | 2024-12-09 22:00 | XMS_ITS | Encounter Summary ---
Author Organization [facility] Address [address] [facility] [place] [address] Care Team Providers Care Applied Psychology Teacher Name Role Phone Emerald Sanchez MD Unavailable Emerald Sanchez MD Primary Care Provider [phone] Encounter Details Date Type Department Care Team (Late st Contact Info) Description 04/23/2024 Abstract [facility] [address] [facility] [address] [place] [id number] Emerald Sanchez MD [address] [place] [address] Social History Tobacco Use Types Packs/Day Years [...] often do you attend chur ch or jehovah's witness services? Never 04/18/2023 Do you belong to any clubs o r organizations such as taoism groups, unions, fraternal or athletic groups, or [...] heating? Not hard at all 04/18/2023 [facility] [...] in a intermediate (including now)? No 04/18/2023 Comments No Sex [...] EDT Office Visit [facility] [address] [place] [address] Milton Duvall, DPM [facility] [address] [place] [address] 12/26/2024 1:20 PM EDT Office Visit [facility] [address] [facility] [address] [place] [address] Jatin Cabrera MD [phone] [facility] [address] [address] documented as of this encounter Goals Goal Patient Goal Type Associated Problems Recent Progress Patient-Stated? Author Help patient manage antidepressant medication Care Plan Patient on antidepressant monitoring plan Emerald Gaxiola MD Baseline PHQ-9 Care Plan Baseline PHQ-9 Emearld Gaxiola MD documented as of this encounter Visit Diagnoses Not on filedocumented in this encounter Additional Health Concerns Active Problems Noted Date Diagnosed Date Patient on antidepressant monitoring plan 2023 Baseline PHQ-9 05/08/2023 documented as of this encounter Care Teams Applied Psychology Teacher Relationship Specialty Start Date End Date Emerald Sanchez MD [address] [place], [place] [id number] PCP - Medical [place] [employer] 10/22/18 04/23/99 Emerald Sanchez MD [address] [place] [address] PCP - General Family Medicine 08/30/22 documented as of this encounter
[2024-12-09] MEDS: 0.9 % SODIUM CHLORIDE 1,000 ML 1000 ML IV (22:15)
[2024-12-09] MEDS: MORPHINE SULFATE 4 MG/ML VIAL IV (22:17)
[2024-12-09] MEDS: FAMOTIDINE/PF 20 MG/2 ML VIAL IV (22:20)
[2024-12-09 22:26] LABS: Hematocrit 39.3 % (36.0-48.0); Hemoglobin 13.4 g/dL (12.0-16.0); Immature Granulocytes Abs Auto 0.12 10^3/uL (0.00-0.03); Immature Granulocytes Pct Auto 1.1 % (0.0-0.5); Lymphocytes Absolute Auto 3.1 10^3/uL (1.2-3.8); Mean Corpuscular HGB Conc 34.1 g/dL (29.9-35.2); Mean Corpuscular Hemoglobin 32.4 pg (26.7-34.0); Mean Corpuscular Volume 94.9 fL (81.0-99.0); Platelet Count 231 10^3/uL (150-450); Red Blood Count 4.14 10^6/uL (4.20-5.40); White Blood Count 10.7 10^3/uL (4.0-11.0)
[2024-12-09 22:42] LABS: Alanine Aminotransferase 74 U/L (14-59); Albumin Globulin Ratio 1.1; Albumin Level 3.8 g/dL (3.4-5.0); Alkaline Phosphatase 134 U/L (46-116); Anion Gap 9.6; Aspartate Amino Transferase 29 U/L (15-37); Blood Urea Nitrogen 15.0 mg/dL (7.0-18.0); Calcium 8.7 mg/dL (8.5-10.1); Carbon Dioxide 28.8 mmol/L (21.0-32.0); Chloride 105 mmol/L (98-107); Estimated GFR (African America >60 (>=60 mL/min/1.73m^2); Estimated GFR (Non-African Ame >60 (>=60 mL/min/1.73m^2); Globulin 3.6 g/dL; Glucose 145 mg/dL (74-106); Lipase 30.0 U/L (16.0-77.0); Potassium 3.4 mmol/L (3.5-5.1); Sodium 140 mmol/L (136-145); Total Protein 7.4 g/dL (6.4-8.2)
[2024-12-09 22:45] LABS: Lactate/Lactic Acid 1.3 mmol/L (0.4-2.0)
[2024-12-09 22:46] LABS: Acetaminophen <2.0 ug/mL (10.0-30.0); Salicylate <2.8 mg/dL (<=19.9)
== END 2024-12-09 23:20 | disposition home or self-care (01) ==
PROVIDERS: Emergency Provider Emergency Medicine; PCP Family Medicine
DX: K29.70 Gastritis, unspecified, without bleeding (principal); N83.201 Unspecified ovarian cyst, right side; R11.2 Nausea with vomiting, unspecified; Z90.710 Acquired absence of both cervix and uterus; Z90.49 Acquired absence of other specified parts of digestive tract; Z87.891 Personal history of nicotine dependence
CPT/HCPCS: 36415; 74176; 80053; 80179; 80329; 83605; 83690; 85025; 96361; 96374; 96375; 99285; J2270; J2405; J3490

== ENCOUNTER 2024-12-12 11:23 | Outpatient (OUT) | payer OTHER, SELFPAY ==
--- OUTSIDE RECORDS SUMMARY | 2024-12-09 13:00 | XMS_ITS | Encounter Summary ---
Author Organization [facility] Address [address] [place] [address] Care Team Providers Care [employer] Name Role Phone Emerald Sanchez MD Unavailable Emerald Sanchez MD Primary Care Provider [phone] Reason for Visit * Reason Comments Foot Numbness EMG LLE Encounter Details Date Type Department Care Team (Latest Contact Info) Description 12/09/2024 1:00 PM EDT Procedure Visit [facility] [address] [place] [address] Lumbar radiculopathy Social History Tobacco Use Types [...] week 05/09/2024 How often do you attend cheondoism or taoist serv ices? Never 05/09/2024 Do you belong to any clubs o r organizations such as cheondoism groups, unions, fraternal or athletic groups, or [...] Recorded Patient Health Questionnaire-2 Score 4 10/08/2024 [facility] - Occupational Stress [...] place to sleep or slept in a senior living (including now)? No 04/18/2023 Housing Stability Vital Sign Answer Celso e Recorded In the last 12 months, was t here a time when you were not able to pay the mortgage or rent on time? No 05/09/2024 In the past 12 months, how m any times have you moved where you were living? 0 05/09/2024 At any time in the past 12 m [facility], were you homeless or living in a senior living (including now)? No 05/09/2024 Comments No Sex [...] EDT Office Visit [facility] [address] [facility] [place] [address] Milton Duvall, DPM FACFAS [address] [facility] [place] [address] 12/16/2024 9:45 AM EDT Office Visit [facility] [place] [address] [facility] [address] [place] [phone] Emerald Sanchez MD [address] [facility] [address] [place], [place] [id number] 12/26/2024 1:20 PM EDT Office Visit [facility] [place] [facility] [address] [facility] [address] [place] [address] Jatin Cabrera MD [address] [facility] [address] [id number] documented as of this encounter Goals Goal [...] Noted Time PHQ-9 Depression Total Score: 18 06/17/2 025 11:34 AM EDT documented as of this encounter Care Teams [employer] Relationship Specialty Start Date End Date Emerald Sanchez MD [address] [facility] [address] [place] [address] PCP - Medical [place] [employer] 10/22/18 04/23/99 Emerald Sanchez MD [address] [facility] [address] [place] [address] PCP - General Family Medicine 08/30/22 documented as of this encounter
--- OUTSIDE RECORDS SUMMARY | 2024-12-12 10:30 | XMS_ITS | Encounter Summary ---
Author Organization [facility] Address [address] [facility] [place] [address] Care Team Providers Care Dye Blender Name Role Phone Emerald Sanchez MD Unavailable Emerald Sanchez MD Primary Care Provider [phone] Reason for Visit * Reason Comments Med Refill Doxepin, Ativan, Add erall both 10 and 30 mg Encounter Details Date Type Department Care Team (Late st Contact Info) Description 12/12/2024 10:30 AM EDT [facility] [place] [facility] [address] [facility] 110 [place] [address] Sandy Hammond PA [address] [facility] [address] [place] [address] Elevated liver enzymes (Primary Dx); Nephrocalcinosis; Bilateral nephrolithiasis; Right ovarian cyst; Hypokalemia; Weight gain; Attention deficit hyperactivity disorder (ADHD), predominantly inattentive type ; History of alcohol dependence (HCC); Impaired fasting glucose; Other fatigue; Anxiety; Other chronic pain Social History Tobacco Use Types Packs/Day Years [...] week 05/09/2024 How often do you attend latter day or yazidi serv ices? Never 05/09/2024 Do you belong to any clubs o r organizations such as latter day groups, unions, fraternal or athletic groups, or [...] Recorded Patient Health Questionnaire-2 Score 4 10/08/2024 [facility] - [...] any time in the past 12 m [facility], were you homeless or living in a intermediate (including now)? No 05/09/2024 Comments No Sex and Gender Information Value Date Recorded Sex Assigned at Not on file Legal Sex Female 7:29 PM EDT Gender Identity Not on file Sexual Orientation Not on file documented as of this encounter Last Filed Vital Signs Vital Sign Reading Time Taken Comments Blood Pressure 112/76 12/12/2024 10:38 AM EDT Pulse 89 12/12/2024 10:38 AM EDT Temperature - - Respiratory Rate 16 12/12/2024 10:38 AM EDT Oxygen Saturation 98% 12/12/2024 10:38 AM EDT Inhaled Oxygen Concentration - - Weight 90.8 kg (200 lb 3.2 oz) 12/12/2024 10:38 AM EDT Height 157.5 cm (5' 2 ) 12/12/2024 10:38 AM EDT Body Mass Index 36.62 12/12/2024 10:38 AM EDT documented in this encounter Progress Notes * VINH Roque - 12/12/2024 10:30 AM EDT Images from the original note were not included. HPI Med Refill Additional comments: Doxepin, Ativan, Adderall both 10 and 30 mg Last edited by Marie Keller LPN on 12/12/2024 10:38 AM. Subjective Patient ID: Belgica Barnett is a 34 y.o. female who presents for [facility] ER follow up. Flowsheet Row Patient Outreach from 12/10/2024 in [facility] with Gifty Mireles LPN [facility] Information ED, Hospital or Detention Facility Discharge? ED Patient has been contacted within 2 days of being seen in the ED Yes Diagnosis Gastritis Discharge Date 12/09/24 Discharged To: Home Setting Discharge Hospital [facility] Engagement Call Start Time 1444 Admission Date 12/09/24 Medications Discharge medications reviewed and reconciled from hospital? No [pt did not reconcile with repairer typewriter. Was sent home with no new medications] Does the patient have all medications ordered at discharge? Yes Is the patient taking all medications as directed (includes completed medication regime)? Yes [Takes medications as prescribed] Medication Comments No medications ordered at discharge Appointments Does the patient have a primary care provider? Yes [12/16] Does the patient have any upcoming specialty appointments? Yes [neurology 12/26, Gynocology 12/30] Self Management Does patient have home health? no Patient Teaching Does the patient have access to their discharge instructions? Yes What is the patient's perception of their health status since discharge? Improving Is the patient/caregiver able to teach back the hierarchy of who to call/visit for symptoms/problems? PCP, Specialist, Home Health nurse, Urgent Care, ED, 911 Yes Wrap Up Wrap Up Additional Comments CT scan - abdomen-IMPRESSION: Bilateral medullary nephrocalcinosis nonobstructing renal calculi. No hydronephrosis. 4 cm right ovarian cyst. No CT findings of acute pancreatitis. Presented to ER with upper abdominal pain and pain underneath her ribs bilaterally associated with nausea and vomiting. She states the symptoms started after eating several hours ago. She had 1 episode of vomiting. She does not have any chest pain or shortness of breath. She has not had any fever. Call End Time 1348 States was in Mental Rehab in [place] recently. Saw Psychiatry on Monday, Dr. Maria Esther Amos, [facility]. Seeing Dr. Jatin Cabrera for her back, next appointment is in December. Has to reschedule that appointment she thinks due to having to be in [place] that day. Has tried Flexeril, prescription strength Ibuprofen, Baclofen, Meloxicam, and Zanaflex in the past without relief of symptoms. Shooting pain goes from the left side of her face down to her foot. Sweats for no reason, fatigued. Takes a Multivitamin and Vitamin D. Patient states she has not drank alcohol in two months. Back Pain This is a chronic problem. The current episode started more than 1 year ago. The problem occurs constantly. The problem has been gradually worsening since onset. The pain is present in the lumbar spine and thoracic spine. The quality of the pain is described as aching and shooting. The pain radiates to the left foot, left knee and left thigh. The pain is at a severity of 7/10. The pain is The same all the time. The symptoms are aggravated by position and sitting. Stiffness is present All day. Associated symptoms include headaches, leg pain, numbness, paresthesias, tingling and weakness. Pertinent negatives include no abdominal pain, bladder incontinence, bowel incontinence, chest pain, dysuria, fever, paresis, pelvic pain, perianal numbness or weight loss. Treatments tried: I have tried everything and nothing works. The treatment provided no relief. Current Outpatient Medications on File Prior to Visit Medication Sig Dispense Refill [DISCONTINUED] amphetamine-dextroamphetamine XR (Adderall XR) 10 MG 24 hr capsule Take 1 capsule (10 mg) by mouth in the morning. Do not crush or chew. Take with the 30mg tablet. 30 capsule 0 [DISCONTINUED] amphetamine-dextroamphetamine XR (Adderall XR) 30 MG 24 hr capsule Take 1 capsule (30 mg) by mouth Daily Do not crush or chew. Take with the 10mg daily 30 capsule 0 albuterol (2.5 MG/3ML) 0.083% nebulizer solution Take 3 mL (2.5 mg) by nebulization every 6 (six) hours if needed for wheezing 75 mL 11 albuterol HFA 90 mcg/act inhaler Inhale 2 puffs every 6 (six) hours if needed for wheezing 18 g 3 buPROPion XL (Wellbutrin XL) 150 MG 24 hr tablet Take 150 mg by mouth in the morning. Cariprazine HCl (Vraylar) 4.5 MG capsule Take 1 capsule by mouth Daily 100 capsule 3 citalopram (CeleXA) 10 MG tablet 1 (one) time each day at the same time cloNIDine (Catapres) 0.1 MG tablet 1 (one) time each day at the same time doxepin (SINEquan) 50 MG capsule Take 50 mg by mouth at bedtime escitalopram (Lexapro) 20 MG tablet Take 20 mg by mouth Daily Rysamiydlgz-Dxjdbblrj-Xhicxq (Trelegy Ellipta) 100-62.5-25 MCG/ACT aerosol powder INHALE 1 PUFF DAILY 60 each 2 LORazepam (Ativan) 0.5 MG tablet Take 0.5 mg by mouth in the morning and 0.5 mg before bedtime. metoprolol succinate XL (Toprol-XL) 25 MG 24 hr tablet Take 1 tablet (25 mg) by mouth Daily 100 tablet 3 montelukast (Singulair) 10 MG tablet Take 1 tablet (10 mg) by mouth at bedtime 30 tablet 11 ondansetron ODT (Zofran-ODT) 4 MG disintegrating tablet Take 4 mg by mouth every 6 (six) hours if needed OXcarbazepine (Trileptal) 300 MG tablet Take 0.5 tablets (150 mg) by mouth at bedtime for 7 days, THEN 1 tablet (300 mg) at bedtime. 34 tablet 11 prazosin (Minipress) 2 MG capsule Take 2 mg by mouth in the morning and 2 mg in the evening and 2 mg before bedtime. propranolol (Inderal) 10 MG tablet every 12 (twelve) hours [DISCONTINUED] cephalexin (Keflex) 500 MG capsule Take 1 capsule (500 mg) by mouth in the morning and 1 capsule (500 mg) before bedtime. 20 capsule 0 [DISCONTINUED] clomiPRAMINE (Anafranil) 50 MG capsule TAKE 1 CAPSULE BY MOUTH AT BEDTIME 30 capsule6 [DISCONTINUED] clonazePAM (KlonoPIN) 0.5 MG tablet Take 0.5 mg by mouth in the morning and 0.5 mg before bedtime. [DISCONTINUED] dicyclomine (Bentyl) 10 MG capsule Take 2 capsules (20 mg) by mouth 3 (three) times a day as needed (cramping) 240 capsule 11 [DISCONTINUED] hydrocortisone (Anusol-HC) 25 MG suppository UNWRAP AND INSERT 1 SUPPOSITORY RECTALLY EVERY 12 HOURS NEEDED FOR HEMORRHOIDS [DISCONTINUED] QUEtiapine XR (SEROquel XR) 50 MG 24 hr tablet Take 50 mg by mouth at bedtime [DISCONTINUED] tiZANidine (Zanaflex) 4 MG tablet Take 1 tablet (4 mg) by mouth every 6 (six) hours if needed for muscle spasms for up to 10 days 30 tablet 0 No current facility-administered medications [...] Social History Tobacco Use Smoking status: Former Types: Cigarettes Smokeless tobacco: Never Vaping Use Vaping status: Never Used Substance Use Topics Alcohol use: Yes Alcohol/week: 2.0 standard drinks of alcohol Types: 2 Standard drinks or equivalent per week Drug use: Yes Types: Amphetamines Family History Problem Relation Name Age of Onset Hypertension Mother Hien Hyperlipidemia Mother Hien Anesthesia problems Mother Hien No Known Problems Father No Known Problems Daughter No Known Problems Daughter No Known Problems Daughter Migraines Other mother's side Diabetes Maternal Grandmother Analia Accidental Brother Jose Antonio Barnett Past Medical History: Diagnosis Date Abnormal computed [...] Embolism, No Pulmonary Infiltrates, No suspicious findings Headache, tension-type 2024 HELLP syndrome (HHS-HCC) History of being hospitalized [...] Middle Lobe nodule Stable Influenza A 05/07/2017 Ingrown toenail 2014 Left ovarian cyst 03/01/2019 simple cyst 1.2 cm Pancreatitis (HHS-HCC) Pap smear for cervical cancer screening 04/20/2022 neg Post depression Seizures (HCC) 2002 Sprain of anterior talofibular ligament of right ankle 04/01/2024 Past Surgical History: Procedure Laterality Date ANKLE [...] normal PARTIAL HYSTERECTOMY 05/2016 PELVIC LAPAROSCOPY 02/10/2023 TOENAIL EXCISION 2017 Visit Vitals BP 112/76 Pulse 89 Resp 16 Ht 5' 2 Wt 200 lb 3.2 oz LMP (LMP Unknown) Comment: partial hysterectomy 05/2016 SpO2 98% BMI 36.62 kg/m?? OB Status Hysterectomy Smoking Status Former BSA 1.99 m?? Review of Systems Constitutional: Positive for unexpected weight change (Gain). Negative for chills, fatigue, fever and weight loss. Respiratory: Negative for cough, shortness of breath and wheezing. Cardiovascular: Negative for chest pain, palpitations and leg swelling. Gastrointestinal: Negative for abdominal pain, bowel incontinence, constipation, diarrhea, nausea and vomiting. Genitourinary: Negative for bladder incontinence, dysuria and pelvic pain. Musculoskeletal: Positive for back pain. Neurological: Positive for tingling, weakness, numbness, headaches and paresthesias. Endocrine: Sweats easily Objective Physical Exam Constitutional: General: She is not in acute distress. Appearance: She is well-developed. She is obese. HENT: Head: Normocephalic and atraumatic. Eyes: General: No scleral icterus. Conjunctiva/sclera: Right eye: Right conjunctiva is injected. Left eye: Left conjunctiva is injected. Cardiovascular: Rate and Rhythm: Normal rate and [...] and time. Psychiatric: Mood and Affect: Mood is anxious. Behavior: Behavior is agitated. Comments: Leg bouncing during visit, closed posture. Assessment/Plan Diagnoses and all orders for this visit: Elevated liver enzymes - Vitamin B6 - Vitamin B12 - Folate - Vitamin B1 - Comprehensive metabolic panel - Iron + transferrin + TIBC Will recheck liver function on upcoming labs. Nephrocalcinosis Seen on imaging in the ER. Will check calcium level with today's labs. Pt needs to stay hydrated. Bilateral nephrolithiasis Will recheck kidney function. Right ovarian cyst Seen on recent imaging. Pt can follow up with BODY SPECIALIST as needed. Hypokalemia - Comprehensive metabolic panel Will recheck with today's lab. Weight gain - Vitamin B6 - Vitamin B12 - Folate - TSH W/REFLEX TO FT4 - Hemoglobin A1c - Vitamin D 25 hydroxy Total - Vitamin B1 - CBC and differential - Comprehensive metabolic panel - Iron + transferrin + TIBC Will evaluate further with labs. Attention deficit hyperactivity disorder (ADHD), predominantly inattentive type Advised pt that provider will need to speak with Dr. Sanchez prior to restarting the Adderall for her.Her Psychiatrist is unwilling to prescribe it for her. States she will need it because she is goingback to work. History of alcohol dependence (HCC) - Vitamin B6 - Vitamin B12 - Folate - TSH W/REFLEX TO FT4 - Vitamin B1 - CBC and differential - Comprehensive metabolic panel Will evaluate further with labs. Impaired fasting glucose - Hemoglobin A1c - Comprehensive metabolic panel Will evaluate further with labs. Other fatigue - Vitamin B12 - Folate - TSH W/REFLEX TO FT4 - CBC and differential - Iron + transferrin + TIBC Will evaluate further with labs. Anxiety Advised pt that our office will not be prescribing Lorazepam for her. She will need to follow up with her Psychiatrist to address this potential refill. Pt does have history of overdose, and alcohol dependency. Other chronic pain The type of pain the patient is describing is not distinct to any one location or specific source. She is seen Neurology and they have started a work up including Brain MRI and EMG. Encouraged her tofollow up with them for the results and further discussion of her symptoms/pain. Did advise that certain vitamin deficiencies can cause neuropathic type symptoms, so will obtain labs for further evaluation at this time. The patient was seen today in follow up of recent hospital ER visit. All available hospital records/labs/diagnostics were reviewed and discussed with the patient. ER discharge meds were reviewed. Anychanges to plan are as noted. Follow up for Appointment As Scheduled. documented in this encounter Plan of Treatment Upcoming Encounters Date Type Department Care Team (Late st Contact Info) Description 12/13/2024 9:40 AM EDT Office Visit [facility] [address] [place] [address] Milton Duvall DPM [facility] [address] [facility] [place] [address] 12/16/2024 9:45 AM EDT [facility] [place] [facility] [address] [facility] 110 [place] [address] Emerald Sanchez MD [address] [facility] 110 [place] [address] 12/26/2024 1:20 PM EDT Office Visit [facility] [address] [facility] 310 [place] [address] Jatin Cabrera MD [address] [facility] [address] [id number] Scheduled Orders Name Type Priority Associated Diagnoses Orde r Schedule Vitamin B6 Lab Routine Elevated liver enzymes Weight gain History of alcohol dependence (HCC) Ordered: 12/12/2024 Vitamin B12 Lab Routine Elevated liver enzymes Weight gain History of alcohol dependence (HCC) Other fatigue Ordered: 12/12/2024 Folate Lab Routine Elevated liver enzymes Weight gain History of alcohol dependence (HCC) Other fatigue Ordered: 12/12/2024 TSH W/REFLEX TO FT4 Lab Routine Weight gain History of alcohol dependence (HCC) Other fatigue Ordered: 12/12/2024 Hemoglobin A1c Lab Routine Weight gain Impaired fasting glucose Ordered: 12/12/2024 Vitamin D 25 hydroxy Total Lab Routine Weight gain Ordered: 12/12/2024 Vitamin B1 Lab Routine Elevated liver enzymes Weight gain History of alcohol dependence (HCC) Ordered: 12/12/2024 CBC and differential Lab Routine Weight gain History of alcohol dependence (HCC) Other fatigue Ordered: 12/12/2024 Comprehensive metabolic panel Lab Routine Elevated liver enzymes Hypokalemia Weight gain History of alcohol dependence (HCC) Impaired fasting glucose Ordered: 12/12/2024 Iron + transferrin + TIBC Lab Routine Elevated liver enzymes Weight gain Other fatigue Ordered: 12/12/2024 documented as of this encounter Goals Goal Patient Goal Type Associated Problems Recent Progress Patient-Stated? Author Help patient manage antidepressant medication Care Plan Patient on antidepressant monitoring plan No Emerald Sanchez MD Baseline PHQ-9 Care Plan Baseline PHQ-9 No Emerald Sanchez MD documented as of this encounter Visit Diagnoses Diagnosis Elevated liver enzymes- Primary Other nonspecific abnormal serum enzyme levels Nephrocalcinosis Other disorder of calcium metabolism Bilateral nephrolithiasis Right ovarian cyst Other and unspecified ovarian cyst Hypokalemia Hypopotassemia Weight gain Other symptoms concerning nutrition, metabolism, and development Attention deficit hyperactivity disorder (ADHD), predominantly inattentive type History of alcohol dependence (HCC) Impaired fasting glucose Other fatigue Anxiety Anxiety state, unspecified Other chronic pain documented in this encounter Additional Health Concerns Active Problems Noted Date Diagnosed Date Patient on antidepressant monitoring plan 2023 Baseline PHQ-9 05/08/2023 Assessment Noted Time PHQ-9 Depression Total Score: 18 025 11:34 AM EDT documented as of this encounter Care Teams Dye Blender Relationship Specialty Start Date End Date Emerald Sanchez MD [address] [facility] 110 [place] [address] PCP - Medical [place] [employer] 10/22/18 04/23/99 Emerald Sanchez MD [address] [facility] 110 [place] [address] PCP - General Family Medicine 08/30/22 documented as of this encounter
--- OUTSIDE RECORDS SUMMARY | 2024-12-12 11:26 | XMS_ITS | Encounter Summary ---
Author Organization [facility] Address [address] [place] [facility] [place] [address] Care Team Providers Care Order Builder Name Role Phone Emerald Hagen MD Unavailable Emerald Hagen MD Primary Care Provider [phone] Encounter Details Date Type Department Care Team [...] week 04/18/2023 How often do you attend [facility] or anabaptist services? Never 04/18/2023 Do you belong to any clubs o r organizations such as roman catholic groups, unions, fraternal or athletic groups, [...] heating? Not hard at all 04/18/2023 [facility] - Occupational [...] EDT Office Visit [facility] [address] [place] [address] Milton Duvall, DPM FACFAS [address] [place] [address] 12/16/2024 9:45 AM EDT Office Visit [facility] [place] [facility] [address] [facility] 110 [place] [address] Emerald Hagen MD [address] [facility] 110 [place] [address] 12/26/2024 1:20 PM EDT Office Visit [facility] [place] [facility] [address] [facility] 310 [place] [address] Jatin Cabrera MD [address] [facility] [address] [place] [address] [place] [address] documented as of this encounter Goals Goal [...] AM EST Narrative 03/17/2024 9:11 [place] [address] Magnetic Resonance Report Signed Patient: BELGICA BARNETT MR#: [id number] : 1990 Acct:[id number] Age/Sex: 33 / F ADM Date: 03/14/24 Loc: MRI Attending Dr: Laurie Navas M.D. Ordering Physician: Laurie Navas M.D. Date of Service: 03/14/24 Procedure(s): MR ankle RT wo con Accession Number(s): [id number] cc: EMERALD HAGEN ; Laurie Navas M.D. [place] [id number] Patient Name: BELGICA BARNETT MRN: [facility]:[id number] date: 1990 Sex: F Assigned Patient Location: MRI Current Patient Location: Accession/Order Number: [id number] Exam Date: 03/14/2024 15:04 Report Date: 03/17/2024 [...] 09:08 Dictated By: Michael Saucedo M.D. Signed By: 03/17/24910 DD/ 7 TD/TT: Deadener: Procedure Note Radiology, Radiologist, MD - 03/17/2024 [place] [address] Magnetic Resonance Report Signed Patient: BELGICA BARNETT AMR#: [id number] : 1990Acct:[id number] Age/Sex: 33 / FADM Date: 03/14/24 Loc: MRI Attending Dr: Laurie Navas M.D. Ordering Physician: Laurie Navas M.D. Date of Service: 03/14/24 Procedure(s): MR ankle RT wo con Accession Number(s): [id number] cc: EMERALD HAGEN Steven C M.D. [place] [address] Patient Name: BELGICA BARNETT MRN: [id number] date: 1990 Sex: F Assigned Patient Location: MRI Current Patient Location: Accession/Order Number: [id number] Exam Date: 03/14/2024 15:04 Report Date: 03/17/2024 [...] Saucedo M.D. Signed By:03/17/24910 DD/ 7 TD/TT: Deadener: us Generic External Data Provider IMG MRI PROCEDURE S Final Result documented in this encounter Visit Diagnoses Not on filedocumented in this encounter Additional Health Concerns Active Problems Noted Date Diagnosed Date Patient on antidepressant monitoring plan 2023 Baseline PHQ-9 05/08/2023 documented as of this encounter Care Teams Order Builder Relationship Specialty Start Date End Date Emerald Hagen MD 112 [facility] 110 [place] [address] PCP - Medical [place] [employer] 10/22/18 04/23/99 Emerald Hagen MD [address] [facility] 110 [place] [address] PCP - General Family Medicine 08/30/22 documented as of this encounter
--- OUTSIDE RECORDS SUMMARY | 2024-12-12 11:26 | XMS_ITS | Encounter Summary ---
Author Organization [facility] Address [address] [facility] [place] [address] Care Team Providers Care Fire Warden Name Role Phone Emerald Sanchez MD Unavailable Emerald Sanchez MD Primary Care Provider [phone] Encounter Details Date Type Department Care Team (Late st Contact Info) Description 09/02/2024 Abstract [facility] [place] [facility] [address] [facility] 110 [place] [phone] Emerald Sanchez MD [address] [place] [address] [place] [address] Social History Tobacco Use Types Packs/Day Years [...] week 05/09/2024 How often do you attend yazidi or judaism serv ices? Never 05/09/2024 Do you belong to any clubs o r organizations such as yazidi groups, unions, fraternal or athletic groups, or [...] Recorded Patient Health Questionnaire-2 Score 0 09/02/2024 [facility] [...] place to sleep or slept in a mcc (including now)? No 04/18/2023 Housing Stability Vital Sign Answer Celso e Recorded In the last 12 months, was t here a time when you were not able to pay the mortgage or rent on time? No 05/09/2024 In the past 12 months, how m any times have you moved where you were living? 0 05/09/2024 At any time in the past 12 m [facility], were you homeless or living in a mcc (including now)? No 05/09/2024 Comments No Sex [...] Office Visit [facility] [address] [place] [address] Milton Duvall, DPM FACFAS [address] [facility] [place] [address] 12/16/2024 9:45 AM EDT [facility] Visit [facility] [place] [facility] [address] [facility] 110 [place] [phone] Emerald Sanchez MD [address] [facility] 110 [place], [place] [phone] 12/26/2024 1:20 PM EDT Office Visit [facility] [place] [facility] [address] [facility] 310 [place] [address] Jatin Cabrera MD [address] [facility] [address] [id number] documented as of this encounter Goals Goal [...] documented as of this encounter Care Teams Fire Warden Relationship Specialty Start Date End Date Emerald Sanchez MD [address] [place] [address] [place] [address] PCP - Medical [place] [employer] 10/22/18 04/23/99 Emerald Sanchez MD [address] [place] [address] [place] [address] PCP - General Family Medicine 08/30/22 documented as of this encounter
--- OUTSIDE RECORDS SUMMARY | 2024-12-12 11:26 | XMS_ITS | Encounter Summary ---
Author Organization [facility] Address [address] [place] [address] Care Team Providers Care Order Control Clerk Blood Bank Name Role Phone Emerald Hagen MD Unavailable Emerald Hagen MD Primary Care Provider [phone] Encounter Details Date Type Department Care Team (Late st Contact Info) Description 05/03/2024 Clinisync Result Encounter [facility] External Department Unsolicited Nakia Hammond, PA [address] [facility] [address] [place] [address] Social History Tobacco Use Types Packs/Day Years [...] any clubs o r organizations such as orthodox groups, unions, fraternal or athletic groups, or [...] in a mcc (including now)? No 04/18/2023 Comments No Sex [...] EDT Office Visit [facility] [address] [place] [address] Milton Duvall, DPM FACFAS [address] [place] [address] 12/16/2024 9:45 AM EDT Office Visit [facility] [place] [facility] [place] [address] [facility] [address] [place] [address] Emerald Hagen MD [address] [facility] 110 [place] [address] 12/26/2024 1:20 PM EDT Office Visit [facility] [address] [facility] [address] [place] [address] Jatin Cabrera MD [address] [facility] [address] Simeon [address] [place] [address] documented as of this encounter Goals [...] PM EST Narrative 05/03/2024 4:04 [place] [address] Magnetic Resonance Report Signed Patient: BELGICA BARNETT MR#: [id number] : 1990 Acct:[id number] Age/Sex: 33 / F ADM Date: 05/03/24 Loc: MRI Attending Dr: NAKIA HAMMOND Ordering Physician: NAKIA HAMMOND Date of Service: 05/03/24 Procedure(s): MR cervical spine wo con Accession Number(s): [id number] cc: EMERALD HAGEN ; NAKIA HAMMOND The [place] [id number] Patient Name: BELGICA BARNETT MRN: [id number] date: 1990 Sex: F Assigned Patient Location: MRI Current Patient Location: MRI Accession/Order Number: [id number] Exam Date: 05/03/2024 14:00 Report Date: 05/03/2024 [...] account for patient's symptoms. Electronically authenticated by: LAURIE BRUNO Date: 05/03/2024 16:01 Dictated By: Laurie Bruno M.D. Signed By: 05/03/24 1604 DD/ 1601 TD/TT: Campus President: Procedure Note Radiology, Radiologist, MD - 05/03/2024 [place] [address] Magnetic Resonance Report Signed Patient: BELGICA BARNETT AMR#: [id number] : 1990Acct:[id number] Age/Sex: 33 / FADM Date: 05/03/24 Loc: MRI Attending Dr: NAKIA HAMMOND Ordering Physician: NAKIA HAMMOND Date of Service: 05/03/24 Procedure(s): MR cervical spine wo con Accession Number(s): [id number] cc: EMERALD HAGEN KAREN M [place] [id number] Patient Name: BELGICA BARNETT MRN: [id number] date: 1990 Sex: F Assigned Patient Location: MRI Current Patient Location: MRI Accession/Order Number: [id number] Exam Date: 05/03/2024 14:00 Report Date: 05/03/2024 [...] to account for patient'ssymptoms. Electronically authenticated by: LAURIE BRUNO Date: 05/03/2024 16:01 Dictated By: Laurie Bruno M.D. Signed By:05/03/24 1604 DD/ 1601 TD/TT: Campus President: us Nakia JUSTICE IMG MRI PROCEDURES Final Resul t documented in this encounter Visit Diagnoses Not on filedocumented in this encounter Additional Health Concerns Active Problems Noted Date Diagnosed Date Patient on antidepressant monitoring plan 2023 Baseline PHQ-9 05/08/2023 documented as of this encounter Care Teams Order Control Clerk Blood Bank Relationship Specialty Start Date End Date [place], Rugen M, MD [address] [facility] [address] [place], [place] [id number] PCP - Medical [place] [employer] 10/22/18 04/23/99 Emerald Hagen MD [address] [facility] [address] [place] [address] PCP - General Family Medicine 08/30/22 documented as of this encounter
--- OUTSIDE RECORDS SUMMARY | 2024-12-12 11:26 | XMS_ITS | Encounter Summary ---
Author Organization [facility] Address [address] [facility] [place] [address] Care Team Providers Care Rod Bending Machine Operator Name Role Phone Emerald Sanchez MD Unavailable Emerald Sanchez MD Primary Care Provider Encounter Details Date Type Department Care Team (Late st Contact Info) Description 03/20/2023 Orders Only [facility] [place] [facility] [address] [facility] [address] [place] [address] A, Unknown Practice [address] [place], [place] [id number] Social History Tobacco Use Types Packs/Day Years [...] EDT Office Visit [facility] [address] [place] [phone] Milton Duvall, DPM FACFAS [address] [facility] [place] [address] 12/16/2024 9:45 AM EDT [facility] [address] [place] [address] [place] [address] Emerald Sanchez MD [address] [place] [address] [place] [address] 12/26/2024 1:20 PM EDT Office Visit [facility] [address] [facility] [address] [place] [address] Jatin Cabrera MD 5307 [facility] [address] [phone] documented as of this encounter Procedures Procedure [...] on filedocumented in this encounter Care Teams Rod Bending Machine Operator Relationship Specialty Start Date End Date Emerald Sanchez MD [address] [address] PCP - Medical [place] [employer] 10/22/18 04/23/99 Emerald Sanchez MD [address] [address] PCP - General Family Medicine 08/30/22 documented as of this encounter
--- OUTSIDE RECORDS SUMMARY | 2024-12-12 11:26 | XMS_ITS | Encounter Summary ---
Author Organization [facility] Address [address] [facility] [place] [address] Care Team Providers Care Freezer Unloader Name Role Phone Emerald Sanchez MD Unavailable Emerald Sanchez MD Primary Care Provider [phone] Encounter Details Date Type Department Care Team (Late st Contact Info) Description 03/21/2023 Abstract [facility] [place] [facility] [address] [facility] [address] [place] [address] Emerald Sanchez MD [address] [facility] 110 [place], [place] [address] Social History Tobacco Use Types Packs/Day Years [...] EDT Office Visit [facility] [address] [place] [address] Milton Duvall, DPM FACFAS 368 [facility] [place], [place] [address] 12/16/2024 9:45 AM EDT Office Visit [facility] [place] [facility] [address] [facility] [address] [place] [address] Emerald Sanchez MD [address] [facility] 110 [place] [address] 12/26/2024 1:20 PM EDT Office Visit [facility] [address] [facility] [address] [place] [address] Jatin Cabrera MD 5899 [facility] [address] [address] documented as of this encounter Visit Diagnoses Not on filedocumented in this encounter Care Teams Freezer Unloader Relationship Specialty Start Date End Date Emerald Sanchez MD [address] [facility] 110 [place] [address] PCP - Medical [place] [employer] 10/22/18 04/23/99 Emerald Sanchez MD [address] [facility] 110 [place] [address] PCP - General Family Medicine 08/30/22 documented as of this encounter
--- OUTSIDE RECORDS SUMMARY | 2024-12-12 11:26 | XMS_ITS | Clinical Summary ---
Author Organization [facility] Address [address] [place] [address] Care Team Providers Care Sanitarian Name Role Phone Emerald Hagen MD Unavailable Emerald Hagen MD Primary Care Provider [phone] Allergies Active Allergy Reactions Criticality Noted Date [...] by mouth at bedtime 30 tablet 11 024 2024 Active albuterol (2.5 MG/3ML) 0.083% nebulizer solutionIndicatio ns:Moderate persistent asthmatic bronchitis with acute exacerbation (HCC) Take 3 mL (2.5 mg) by nebulization every 6 (six) hours if needed for wheezing 75 mL 11 024 2024 Active Cariprazine HCl (Vraylar) 4.5 MG capsuleIndication s:Bipolar disorder, in partial remission, most recent episode manic (HCC) Take 1 capsule by mouth Daily 100 capsule 3 025 Active Fluticasone-Umecl idin-Vilant (Trelegy Ellipta) 100-62.5-25 MCG/ACT aerosol powderIndications :Moderate persistent asthmatic bronchitis with acute exacerbation (HCC) INHALE 1 PUFF DAILY 60 each 2 025 Active cloNIDine (Catapres) 0.1 MG tablet 1 (one) time each day at the same time Active buPROPion XL (Wellbutrin XL) 150 MG 24 hr tablet Take 150 mg by mouth in the morning. 025 Active metoprolol succinate XL (Toprol-XL) 25 MG 24 hr tabletIndications :Hypercholesterol emia Take 1 tablet (25 mg) by mouth Daily 100 tablet 3 025 Active albuterol HFA 90 mcg/act inhalerIndication s:Mild intermittent asthma without complication (HCC) Inhale 2 puffs every 6 (six) hours if needed for wheezing 18 g 3 025 Active citalopram (CeleXA) 10 MG tablet 1 (one) time each day at the same time Active propranolol (Inderal) 10 MG tablet every 12 (twelve) hours Active OXcarbazepine (Trileptal) 300 MG tabletIndications :Numbness and tingling,Atypical migraine Take 0.5 tablets (150 mg) by mouth at bedtime for 7 days, THEN 1 tablet (300 mg) at bedtime. 34 tablet 11 Active doxepin (SINEquan) 50 MG capsule Take 50 mg by mouth at bedtime Active escitalopram (Lexapro) 20 MG tablet Take 20 mg by mouth Daily Active LORazepam (Ativan) 0.5 MG tablet Take 0.5 mg by mouth in the morning and 0.5 mg before bedtime. Active ondansetron ODT (Zofran-ODT) 4 MG disintegrating tablet Take 4 mg by mouth every 6 (six) hours if needed Active prazosin (Minipress) 2 MG capsule Take 2 mg by mouth in the morning and 2 mg in the evening and 2 mg before bedtime. Active hydrocortisone (Anusol-HC) 25 MG suppository UNWRAP AND INSERT 1 SUPPOSITORY RECTALLY EVERY 12 HOURS NEEDED FOR HEMORRHOIDS 025 2024 Discontinued(O ther) tiZANidine (Zanaflex) 4 MG tabletIndications :Peroneal tendon tear, right, initial encounter Take 1 tablet (4 mg) by mouth every 6 (six) hours if needed for muscle spasms for up to 10 days 30 tablet 025 2024 Discontinued(I neffective) QUEtiapine XR (SEROquel XR) 50 MG 24 hr tablet Take 50 mg by mouth at bedtime 025 2024 Discontinued(O ther) dicyclomine (Bentyl) 10 MG capsuleIndication s:Cramp, abdominal Take 2 capsules (20 mg) by mouth 3 (three) times a day as needed (cramping) 240 capsule 11 025 2024 Discontinued(O ther) clomiPRAMINE (Anafranil) 50 MG capsuleIndication s:Anxiety,Trichot illomania TAKE 1 CAPSULE BY MOUTH AT BEDTIME 30 capsule 6 025 2024 Discontinued(O ther) cephalexin (Keflex) 500 MG capsuleIndication s:Urinary tract infection without hematuria, site unspecified Take 1 capsule (500 mg) by mouth in the morning and 1 capsule (500 mg) before bedtime. 20 capsule 025 2024 Discontinued(O ther) amphetamine-dextr oamphetamine XR (Adderall XR) 10 MG 24 hr capsuleIndication s:Attention deficit hyperactivity disorder (ADHD), predominantly inattentive type,Bipolar disorder, in partial remission, most recent episode manic (HCC),Agoraphobia with panic attacks Take 1 capsule (10 mg) by mouth in the morning. Do not crush or chew. Take with the 30mg tablet. 30 capsule 025 2024 Discontinued(T herapy completed) amphetamine-dextr oamphetamine XR (Adderall XR) 30 MG 24 hr capsuleIndication s:Attention deficit hyperactivity disorder (ADHD), predominantly inattentive type Take 1 capsule (30 mg) by mouth Daily Do not crush or chew. Take with the 10mg daily 30 capsule 025 2024 Discontinued(T herapy completed) clonazePAM (KlonoPIN) 0.5 MG tablet Take 0.5 mg by mouth in the morning and 0.5 mg before bedtime. 2024 Discontinued Active Problems Problem Noted Date Diagnosed Date Generalized anxiety disorder 12/12/2024 Obsessive-compulsive disorder 12/12/2024 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 Right ovarian cyst 12/12/2024 Lumbar radiculopathy 12/09/2024 Pelvic floor dysfunction 10/11/2024 Extruding suture 09/25/2024 Fall at home 09/10/2024 Assessment & Plan (09/10/2024 2:01 PM EDT): Tripped over kids onto the floor Alcohol use, unspecified wit h alcohol-induced psychotic [...] Pain and swelling of left shoulder 04/03/2024 Obesity (BMI 35.0-39.9 without comorbidity) 01/22 Assessment & Plan (02/06/2024 9:24 AM EDT): Needs life style modification. Exercise Routinely Low Calorie Diet F/U in 4 weeks 3500 calorie deficit = 1lb weight loss Small portions TIming of meals Reduce Carbohydrate Intake High Protein Diet Localized edema 02/06/2024 Cervical radiculopathy 12/26/2023 Assessment & Plan [...] NB consider PT and xrays Eventual MRI Tinea 10/03/2023 Weight gain 10/03/2023 Glucose intolerance 10/03/2023 Dyshidrosis 10/03/2023 Cholecystitis 04/18/2023 History of acute pancreatitis 04/18/2023 Assessment & Plan (04/18/2023 2:57 PM EST): Liver Specialist follow-up is May 01 Has seen [employer] Frame Assembler x 2 Has seen a specialist for [...] biliary pancreatitis w ithout infection or necrosis ([facility]) 03/21/2023 History of COVID-19 02/06/2023 Overweight 02/06/2023 [...] will be seeing the [facility] and they will start to manage the [...] Ultimately will see someone who does medicines. Bilateral nephrolithiasis 09/23/2022 Nonalcoholic steatohepatitis (ENGLISH) 09/23/2022 Other specified [...] Problem Noted Date Diagnosed Date Resolved Date Knee laceration, left, sequela 09/10/2024 12/12/2024 Laceration of right knee 09/10/2024 Assessment & Plan (09/10/2024 2:04 PM EDT): Add Probiotic to help replenish the good bacteria that are destroyed by the Antibiotics Florastor Florajen Align or try Activia in Yogurt Probiotics reduce the risk of antibiotic induced diarrhea Watch for secondary infections Sprain of anterior talofibul ar ligament of right ankle 04/01/2024 12/12/2024 Assessment & Plan (04/16/2024 10:33 AM EST): Dr. Duong Canceled surgery due to hear issues, but barrel liner cleared and already has had 2 surgeries last year with no complication Injury of right ankle 02/06/20242024 Encounter for well adult exa m without abnormal findings 12/04/2023 12/12/2024 Assessment & Plan (12/04/2023 3:11 PM EDT): Modest Alcohol consumption No Tobacco Seat Belt use Exercise Regularly No Text Drive Social Accountability Encounter for postoperative care 04/18/2023 12/12/2024 Dysuria 12/12/2022 02/06/2023 Urinary frequency 12/12/2022 02/06/2023 UTI (urinary tract infection) 12/12/2022 02/06/2023 Severe acute respiratory syn drome coronavirus 2 (SARS-CoV-2) detected 11/30/2022 02/06/2023 Abnormal ultrasound 09/23/2022 02/07/20 Diverticulitis 09/23/2022 02/06/2023 Diverticulitis of large inte laurent without perforation or abscess without bleeding 09/23/2022 02/06/2023 Maxillary sinusitis 09/23/2022 02/07/20 23 Sinusitis 09/23/2022 02/06/2023 Obesity (BMI 30.0-34.9) 09/23/202201/22 Sciatica 09/23/2022 02/06/2023 Smoker 09/23/2022 02/06/2023 Tension headache 09/23/2022 02/06/2023 Encounters Date Type Department Care Team Description 12/12/2024 10:30 AM EDT Office Visit [facility] [address] [facility] [address] [place] [address] Sandy Hmamond PA Elevated liver enzymes (Primary Dx); Nephrocalcinosis; Bilateral nephrolithiasis; Right ovarian cyst; Hypokalemia; Weight gain; Attention deficit hyperactivity disorder (ADHD), predominantly inattentive type ; History of alcohol dependence (HCC); Impaired fasting glucose; Other fatigue; Anxiety; Other chronic pain 12/12/2024 [facility]amboo [facility] [address] [facility] [address] [place] [address] Sandy Hammond PA 12/12/2024 Travel 12/11/2024 Travel 12/10/2024 Patient Outreach [facility] [address] [place] [address] Gifty Mireles LPN 12/10/2024 Abstract [facility] [address] [place] [address] Gifty Mireles, CHARGEMASTER ANALYST 12/09/2024 1:00 PM EDT Procedure Visit [facility] [address] [place] [address] [place] [address] Lumbar radiculopathy 12/09/2024 Travel 10/30/2024 Refill [facility] [address] [facility] [address] [place] [address] Sandy Hammond, PA Anxiety; Bipolar disorder, in partial remission, most recent episode manic (HCC) 10/23/2024 Clinisync Result Encounter [facility] External Department Unsolicited Provider, Generic External Data 10/21/2024 Clinisync Result Encounter [facility] External Department Unsolicited Provider, Generic External Data 10/21/2024 Clinisync Result Encounter [facility] External Department Unsolicited Shannon Darden NP 10/15/2024 12:00 PM EDT Procedure Visit [facility] [address] [address] [place] [phone] Cervical radiculopathy; Numbness and tingling 10/15/2024 Travel 10/10/2024 1:00 PM EDT Office Visit [facility] [address] [place] [address] [place] [address] Shannon Darden, JAGDISH Numbness and tingling (Primary Dx); Atypical migraine ; Numbness and tingling of upper extremity; Numbness and tingling of left side of face 10/10/2024 Bamboo flowsheet [facility] [address] [place] [address] Shannon Darden NP 10/10/2024 Travel 10/08/2024 11:30 AM EDT Office Visit [facility] [address] [facility] [address] [place] [address] Deena Osorio, INDEPENDENT DRIVER Numbness and tingling of upper extremity (Primary [...] [facility] [address] [facility] [address] [place] [address] Deena Osorio NP Attention deficit hyperactivity disorder (ADHD), predominantly inattentive type ; Bipolar disorder, in partial remission, most recent episode manic (HCC); Agoraphobia with panic attacks 10/08/2024 Bamboo flowsheet [facility] [address] [facility] [address] [place] [address] Deena Osorio NP 10/08/2024 Travel 10/03/2024 Refill [facility] [address] [facility] [address] [place] [address] Emerald Hagen MD Anxiety; Trichotillomania 09/26/2024 Telephone [facility] [address] [place] [address] [place] [address] Darwin Starr DO 09/25/2024 10:30 AM EDT Office Visit [facility] [address] [facility] [address] [place] [address] Deena Osorio NP Extrusion of suture, sequela (Primary Dx) 09/25/2024 Bamboo flowsheet [facility] [address] [facility] [address] [place] [address] Deena Osorio INDEPENDENT DRIVER 09/25/2024 Travel 09/19/2024 Refill [facility] [address] [facility] [address] [place] [address] Emerald Hagen MD Tremors of nervous system 09/19/2024 Refill [facility] [address] [facility] [address] [place] [address] Emerald Hagen MD Hypercholesterolemia 09/17/2024 11:00 AM EDT Office Visit [facility] [address] [facility] [address] [place] [address] Sandy Hammond PA Laceration of right knee without complication, sequela (Primary Dx) 09/17/2024 [facility]amboo [facility]sheet [facility] [address] [facility] [address] [place] [address] Sandy Hammond, PA 09/17/2024 Travel from Last 3 Months Immunizations Immunization Administration [...] 2 mother's side Relation Name Status Comments Brothaustin Barnett Daughter 1 Alive Daughter 2 Alive [...] week 05/09/2024 How often do you attend baptist or religion serv ices? Never 05/09/2024 Do you belong to any clubs o r organizations such as baptist groups, unions, fraternal or athletic groups, or [...] Recorded Patient Health Questionnaire-2 Score 4 10/08/2024 [facility] - Occupational Stress Questionnaire Answer [...] in a custodial (including now)? No 04/18/2023 Housing Stability Vital [...] in the past 12 m [facility], were you homeless or living in a custodial (including now)? No 05/09/2024 Comments No Sex and Gender Information Value Date Recorded Sex Assigned at Not on file Legal Sex Female 7:29 PM EDT Gender Identity Not on file Sexual Orientation Not on file Last Filed Vital Signs Vital Sign Reading Time Taken Comments Blood Pressure 112/76 12/12/2024 10:38 AM EDT Pulse 89 12/12/2024 10:38 AM EDT Temperature 36.5 C (97.7 F) 04/18/2024 4:42 PM EST Respiratory Rate 16 12/12/2024 10:38 AM EDT Oxygen Saturation 98% 12/12/2024 10:38 AM EDT Inhaled Oxygen Concentration - - Weight 90.8 kg (200 lb 3.2 oz) 12/12/2024 10:38 AM EDT Height 157.5 cm (5' 2 ) 12/12/2024 10:38 AM EDT Body Mass Index 36.62 12/12/2024 10:38 AM EDT Plan of Treatment Upcoming Encounters Date Type Department Care Team (Late st Contact Info) Description 12/13/2024 9:40 AM EDT Office Visit [facility] [address] [place] [address] Milton Duvall, DPM FACFAS [address] [place] [address] 12/16/2024 9:45 AM EDT [facility] [address] [facility] [address] [place] [address] Emerald Hagen MD 112 [facility] [address] [place], [place] [address] 12/26/2024 1:20 PM EDT Office Visit [facility] [address] [facility] [address] [place] [address] Jatin Cabrera MD [address] [facility] [address] [place] [address] [place] [address] Health Maintenance Due Date Last Done Comments [...] EMG 1 Extremeity (12/09/2024 9:00 AM EDT) Shannon Darden INDEPENDENT DRIVER NEUROLOGY ORDERABLES Ed ited Result - Final [...] No radiopaque markers are noted in the vamcq-bx-tbpw. IMPRESSION: 0 Sitzmarks markers. The previously noted [...] any questions regarding this interpretation, please call [phone]. If you are unable to reach us at the number above, please feel free to contact [facility] at [phone]. [id number]^[email or web address]^SI^ACN Procedure Note Radiology, Radiologist, - 10/23/2024 * [...] No radiopaque markers are noted in the wqfew-hv-nmpv. IMPRESSION: 0 Sitzmarks markers. The previously noted [...] any questions regarding this interpretation, please call [phone]. If you are unable to reach us at the number above, please feel free to contact [facility] at [phone]. [id number]^[email or web address]^SI^ACN us Generic External Data Provider [facility] Final Result * MRI HEAD/BRAIN WO/W CONTR (10/21/2024 11:39 AM EDT) Anatomical Region Laterality Modality Radiographic Melissa ging 10/21/2024 11:3 9 AM EDT Narrative 10/21/2024 11:42 [place] [address] Magnetic Resonance Report Signed Patient: ORION BARNETT MR#: [id number] : 1990 Acct:[id number] Age/Sex: 34 / F ADM Date: 10/21/24 Loc: MRI Attending Dr: SHANNON DARDEN Ordering Physician: SHANNON DARDEN Date of Service: 10/21/24 Procedure(s): MR head/brain wo/w con Accession Number(s): [id number] cc: EMERALD HAGEN ; SHANNON DARDEN [place] [address] Patient Name: ORION BARNETT MRN: [facility]:[id number] date: 1990 Sex: F Assigned Patient Location: MRI Current Patient Location: MRI Accession/Order Number: [id number] Exam Date: 10/21/2024 11:17 Report Date: 10/21/2024 [...] Knight M.D. 10/21/2024 11:39 AM Dictation Location: [place] [address] Electronically authenticated by: [id number] Y Date: 10/21/2024 11:39 Dictated By: Sandy Knight M.D. Signed By: 10/21/24 1142 DD/ 1139 TD/TT: Numerical Control Machine Machinist: Procedure Note Radiology, Radiologist, MD - 10/21/2024 [place] [address] Magnetic Resonance Report Signed Patient: ORION BARNETT AMR#: [id number] : 1990Acct:[id number] Age/Sex: 34 / FADM Date: 10/21/24 Loc: MRI Attending Dr: SHANNON DARDEN Ordering Physician: SHANNON DARDEN Date of Service: 10/21/24 Procedure(s): MR head/brain wo/w con Accession Number(s): [id number] cc: EMERALD HAGEN ; SHANNON DARDEN [place] [address] Patient Name: ORION BARNETT MRN: [id number] date: 1990 Sex: F Assigned Patient Location: MRI Current Patient Location: MRI Accession/Order Number: [id number] Exam Date: 10/21/2024 11:17 Report Date: 10/21/2024 [...] Knight M.D. 10/21/2024 11:39 AM Dictation Location: [place] [address] Electronically authenticated by: [id number] Y Date: 1:39 Dictated By: Sandy Knight M.D. Signed By:10/21/24 1142 DD/ 1139 TD/TT: Numerical Control Machine Machinist: us Shannon Darden INDEPENDENT DRIVER IMG XR PROCEDURES Final Result * Pap Smear (03/20/2024 12:00 AM EST) Swab Cervical swab / Unknown us Darwin Starr DO LAB CYTOLOGY ORDERABLES Final Re sult EXTERNAL LAB from Last 3 Months or Most Recently Relevant to Health Maintenance Additional Health Concerns Active Problems Noted Date Diagnosed Date Patient on antidepressant monitoring plan 2023 Baseline PHQ-9 05/08/2023 Insurance [employer] Care Teams Sanitarian Relationship Specialty Start Date End Date Emerald Hagen MD 112 [facility] [address] [place] [address] PCP - Medical Boyd [employer] 10/22/18 04/23/99 Emerald Hagen MD [address] [place] [address] [address] [place] [address] PCP - General Family Medicine 08/30/22
--- OUTSIDE RECORDS SUMMARY | 2024-12-12 11:26 | XMS_ITS | Clinical Summary ---
Author Organization [facility] Address [address] [place] [address] Care Team Providers Care Coldfusion Name Role Phone Emerald Sanchez MD Primary Care Provider [phone] Deena Osoiro DOCUMENT CONTROL COORDINATOR Unavailable [phone] Darwin Starr DO Unavailable [phone] Allergies Active Allergy Reactions Criticality Noted [...] 11/08/2024 Patient Msg HOSP MAIN H060 [address] [place] [address] Provider, Ccf Sign up to manage your digestive symptoms in between visits, covered by insurance 10/23/2024 12:28 PM EDT - 10/23/2024 11:59 PM EDT Hospital Encounter Radiology [address] [place] [address] [place] [address] Pelvic floor dysfunction [M62.89] Discharge Disposition: Home 10/21/2024 10:51 AM EDT - 10/21/2024 11:59 PM EDT Hospital Encounter [facility] Radiology General [address] [place] [address] Pelvic floor dysfunction [M62.89] Discharge Disposition: Home 10/15/2024 10:30 AM EDT Procedure Colorectal Surgery [address] [place] [address] [place] [address] Lesly Barnett APRN.CNP 10/11/2024 2:45 PM EDT OT/PT/Speech Visit [facility] [address] [place] [address] Lydia Rock, PT, DPT Muscle spasm (Primary Dx); Pelvic floor dysfunction; Chronic constipation 10/11/2024 Plan of Care Documentation [facility] Physical Therapy [address] [place] [address] 10/09/2024 1:00 PM EDT Office Visit Colorectal Surgery [address] [place] [address] [place] [address] Lesly Barnett APRN.CNP Pelvic floor dysfunction (Primary Dx); Chronic constipation; Gastroparesis 10/09/2024 Travel 10/07/2024 Abstract Gynecology [address] [place] [address] Emma Ying APRN.TELEPHONE ORDER SUPERVISOR Abstract (CPP - NPAF abstract/) 10/03/2024 Travel 10/01/2024 Telephone Gastroenterology [address] [place] [address] Grayson Peter MD 09/27/2024 Patient Msg [facility] [address] [place] [address] Provider, Ccf CPP CONSULT from Last 3 [...] is lower risk 4 10/17/2022 Data from: https://www.neighborhoodatlas.medicine.[facility].edu/. Last address used for calculation [address] [...] Office Visit Gynecology [address] [place] [address] Emma Ying, DOCUMENT CONTROL COORDINATOR.TELEPHONE ORDER SUPERVISOR [address] [place] [address] Other specified dyspareunia Health Maintenance Due Date [...] EDT Pelvic floor dysfunction Chronic constipation ADULT [facility] Routine 10/15/2024 Pelvic floor dysfunction [...] any questions regarding this interpretation, please call [phone]. If you are unable to reach us at the number above, please feel free to contact [facility] at [phone]. Narrative 10/23/2024 3:17 PM EDT * * [...] No radiopaque markers are noted in the gogpi-no-jckk. Procedure Note Provider, [facility] [place] - 10/23/2024 * * *Final Report* * [...] No radiopaque markers are noted in the mjapw-cf-siyt. IMPRESSION IMPRESSION: 0 Sitzmarks markers. The previously [...] any questions regarding this interpretation, please call [phone]. If you are unable to reach us at the number above, please feel free to contact [facility] at [phone]. us Lesly Barnett APRN.ISABEL LANIER-PAMEleuterio Final Result * XR ABDOMEN 1V SUPINE (10/21/2024 11:17 AM EDT) Anatomical Region Laterality Modality Abdomen Other 10/21/2024 11:1 7 AM EDT Impressions 10/28/2024 9:10 AM EDT IMPRESSION: Sitzmarks markers as described. Column Precaster: MINAL Transcribe Date/Time: Oct 28 2024 9:07A [...] passage of Sitzmarks markers. Procedure Note Provider, [facility] [place] - 07/07/2025 * * *Final Report* * [...] markers. IMPRESSION IMPRESSION: Sitzmarks markers as described. Column Precaster: MINAL Transcribe Date/Time: Oct 28 2024 9:07A Dictated by : MARCELA STILL MD This examination was interpreted and the report reviewed and electronically signed by: MARCELA STILL MD on Oct 28 2024 9:08AM EST us Lesly Barnett APRN.TELEPHONE ORDER SUPERVISOR RAD-PAMA Final Result * ADULT [facility] [facility] (10/15/2024) Anatomical Region Laterality Modality [...] Colon & Rectal Surgery us Lesly Barnett APRN.TELEPHONE ORDER SUPERVISOR DIGESTIVE DISEASE Beatrice l Result * PT ED PATIENT INFORMATION (10/03/2024) 10/03/2024 Narrative MUKUL - 10/03/2024 Provider MEREDITH your patient ORION MEREDITH started their Mukul on 10-03-2024 and completed it on 10-03-2024 Mukul program: PATIENT SAFETY INSTRUCTIONS FOR HEALTHCARE SETTINGS us Lesly Barnett APRN.TELEPHONE ORDER SUPERVISOR MUKUL Final Result Performing Organization Address City/[facility]/ZIP Co de Phone Number MUKUL * HEPATITIS C ANTIBODY IA WITH CONFIRMATION (04/26/2024 3:01 PM EST) Hep C Antibody IA Negative Negative 04/27/2024 10:55 AM EST [facility] Comment:The result suggests no evidence of active infection with Hepatitis C virus. Should recent infection be suspected, repeat testing may be considered 4-6 weeks after this draw. Blood BLOOD SPECIMEN / Unknown Venipuncture / Unknown 04/26/2024 3:01 PM EST 04/26/2024 3:02 PM EST us Iliana Hendrickson PA-C LABORATORY Final Resu lt [facility] [address] [place] [address], [place] from Last 3 Months or Most Recently Relevant to Health Maintenance Insurance [employer] PPO Care Teams Coldfusion Relationship Specialty Start Date End Date Emerald Sanchez MD [address] [place] [address] [place], [place] [id number] PCP - General Family Medicine 03/27/19 Deena Osorio, DOCUMENT CONTROL COORDINATOR [address] [place] [address] [place] [address] Referring Family Medicine 04/03/24 Darwin Starr DO [address] [place] [address] [place] [address] Referring Pipe Bowl Paint Trimmer 07/02/24
--- OUTSIDE RECORDS SUMMARY | 2024-12-12 11:26 | XMS_ITS | Encounter Summary ---
Author Organization [facility] Address [address] [facility] [place] [address] Care Team Providers Care Mitten Stitcher Name Role Phone Emerald Sanchez MD Unavailable Emerald Sanchez MD Primary Care Provider [phone] Encounter Details Date Type Department Care Team (Late st Contact Info) Description 08/20/2024 Abstract [facility] [place] Family [facility] [address] [facility] 110 [place] [phone] Emerald Sanchez MD [address] [place] 110 [place] [address] Social History Tobacco Use Types Packs/Day Years [...] How often do you attend samaritan or amish serv ices? Never 05/09/2024 Do you belong [...] Recorded Patient Health Questionnaire-2 Score 0 08/01/2024 [facility] Occupat ional Health - Occupational [...] in the past 12 m [facility], were you homeless or living in [...] EDT Office Visit N[facility] N[facility] POD [address] [facility] [address] Milton Duvall, DPM FACFAS 368 [facility] [place] [address] 12/16/2024 9:45 AM EDT Office Visit [facility] 112 [facility] 110 [place] [address] Emerald Sanchez MD [address] [facility] 110 [place] [address] 12/26/2024 1:20 PM EDT Office Visit [facility] [place] [facility] [address] [facility] 310 [place] [address] Jatin Cabrera MD 5877 [facility] [address] [address] documented as of this encounter Goals Goal [...] documented as of this encounter Care Teams Mitten Stitcher Relationship Specialty Start Date End Date Emerald Sanchez MD [address] [facility] 110 [place] [address] PCP - Medical [place] Commercial 10/22/18 04/23/99 Emerald Sanchez MD [address] [facility] 110 [place] [address] PCP - General Family Medicine 08/30/22 documented as of this encounter
--- OUTSIDE RECORDS SUMMARY | 2024-12-12 11:26 | XMS_ITS | Encounter Summary ---
Author Organization [facility] Address [address] [place] [address] Care Team Providers Care Insurance Sales Manager Name Role Phone Emerald Sanchez MD Unavailable Emerald Sanchez MD Primary Care Provider [phone] Encounter Details Date Type Department Care Team [...] week 05/09/2024 How often do you attend restorationist or mormon serv ices? Never 05/09/2024 Do you belong [...] Recorded Patient Health Questionnaire-2 Score 4 10/08/2024 [facility] Occupat ional Health - [...] in the past 12 m [facility], were you homeless or living in a [...] EDT Office Visit N[facility] NMA POD 368 [place] [address] Milton Duvall, DPM FACFAS 368 [facility] [place] [address] 12/16/2024 9:45 AM EDT Office Visit [facility] [place] [facility] [address] [place] 110 [place] [address] Emerald Sanchez MD [address] [facility] 110 [place], [place] [address] 12/26/2024 1:20 PM EDT Office Visit [facility] [place] [facility] [address] [place] [address] [place] [address] Jatin Cabrera MD 8984 [facility] [address] [address] documented as of this encounter [...] documented as of this encounter Care Teams Insurance Sales Manager Relationship Specialty Start Date End Date Emerald Sanchez MD [address] [facility] 110 [place] [address] PCP - Medical [place] Commercial 10/22/18 04/23/99 Emerald Sanchez MD [address] [facility] 110 [place] [address] PCP - General Family Medicine 08/30/22 documented as of this encounter
--- OUTSIDE RECORDS SUMMARY | 2024-12-12 11:26 | XMS_ITS | Encounter Summary ---
Author Organization [facility] Address [address] [facility] [place] [address] Care Team Providers Care Band Saw Operator Name Role Phone Emerald Sanchez MD Unavailable Emerald Sanchez MD Primary Care Provider [phone] Encounter Details Date Type Department Care Team (Late st Contact Info) Description 03/29/2024 Abstract [facility] [address] [place] [address] Darwin Starr DO [address] [facility] [address] Carlyle Mancuso, [id number] Social History Tobacco Use Types Packs/Day Years [...] and heating? Not hard at all 04/18/2023 [facility] of Occupat ional Health - Occupational [...] place to sleep or slept in a care home (including now)? No 04/18/2023 Comments No [...] EDT Office Visit N[facility] NMA POD 368 [place] [address] Milton Duvall, DPM FACFAS 368 [place] [address] 12/16/2024 9:45 AM EDT Office Visit [facility] [place] [facility] [address] [facility] 110 [place] [address] Emerald Sanchez MD [address] [facility] 110 [place] [address] 12/26/2024 1:20 PM EDT Office Visit [facility] [place] [facility] [address] [facility] 310 [place] [address] Jatin Cabrera MD [address] [facility] [address] Simeon [address] [place] [address] documented as of this encounter Goals Goal [...] documented as of this encounter Care Teams Band Saw Operator Relationship Specialty Start Date End Date Emerald Sanchez MD 112 [facility] 110 [place] [address] PCP - Medical [place] Commercial 10/22/18 04/23/99 Emerald Sanchez MD 112 [facility] 110 [place] [address] PCP - General Family Medicine 08/30/22 documented as of this encounter
--- OUTSIDE RECORDS SUMMARY | 2024-12-12 11:26 | XMS_ITS | Encounter Summary ---
Author Organization [facility] Address [address] [facility] [place] [address] Care Team Providers Care Replenishment Analyst Name Role Phone Emerald Sanchez MD Unavailable Emerald Sanchez MD Primary Care Provider [phone] Encounter Details Date Type Department Care Team (Late st Contact Info) Description 03/22/2023 Abstract [facility] [place] [facility] [address] [facility] 110 [place] [address] Emerald Sanchez MD [address] [email or web address] 110 [place], [place] [id number] Social History Tobacco Use Types Packs/Day Years [...] EDT Office Visit N[facility] NMA POD 368 [place] [address] Milton Duvall, DPM FACFAS 368 [facility] A [place], [place] [address] 12/16/2024 9:45 AM EDT Office Visit [facility] [address] [facility] 110 [place] [address] Emerald Sanchez MD 112 [facility] 110 [place] [address] 12/26/2024 1:20 PM EDT Office Visit [facility] [address] [email or web address] 310 [place] [address] Jatin Cabrera MD 7086 [facility] [address] [address] documented as of this encounter Visit Diagnoses Not on filedocumented in this encounter Care Teams Replenishment Analyst Relationship Specialty Start Date End Date Emerald Sanchez MD 112 [facility] 110 [place] [address] PCP - Medical [place] Commercial 10/22/18 04/23/99 Emerald Sanchez MD 112 [facility] 110 [place] [address] PCP - General Family Medicine 08/30/22 documented as of this encounter
--- OUTSIDE RECORDS SUMMARY | 2024-12-12 11:26 | XMS_ITS | Encounter Summary ---
Author Organization [facility] Address [address] [facility] [place] [address] Care Team Providers Care Family Resource Management Specialist Name Role Phone Emerald Sanchez MD Unavailable Emerald Sanchez MD Primary Care Provider [phone] Encounter Details Date Type Department Care Team (Late st Contact Info) Description 03/21/2023 Abstract [facility] [place] [facility] [address] [facility] 110 [place] [address] Emerald Sanchez MD [address] [facility] 110 [place], [place] [address] Social History Tobacco Use Types Packs/Day Years [...] EDT Office Visit N[facility] NMA POD 368 [place] [address] Milton Duvall, DPM FACFAS 368 [facility] [place], [place] [address] 12/16/2024 9:45 AM EDT Office Visit [facility] [facility] [address] [facility] 110 [place] [address] Emerald Sanchez MD [address] [facility] 110 [place] [address] 12/26/2024 1:20 PM EDT Office Visit [facility] Matt [facility] [address] [facility] 310 [place] [address] Jatin Cabrera MD 4[address] [facility] [address] [address] documented as of this encounter Visit Diagnoses Not on filedocumented in this encounter Care Teams Family Resource Management Specialist Relationship Specialty Start Date End Date Emerald Sanchez MD [address] [facility] 110 [place] [address] PCP - Medical [place] Commercial 10/22/18 04/23/99 Emerald Sanchez MD [address] [facility] 110 [place] [address] PCP - General Family Medicine 08/30/22 documented as of this encounter
--- OUTSIDE RECORDS SUMMARY | 2024-12-12 11:26 | XMS_ITS | Encounter Summary ---
Author Organization [facility] Address [address] [facility] [place] [address] Care Team Providers Care Ribbon Hand Name Role Phone Emerald Sanchez MD Unavailable Emerald Sanchez MD Primary Care Provider [phone] Encounter Details Date Type Department Care Team (Late st Contact Info) Description 04/02/2024 Abstract [facility] [place] [facility] [address] [facility] 110 [place] [address] Emerald Sanchez MD [address] [place] 110 [place] [address] Social History Tobacco Use Types Packs/Day Years [...] often do you attend chur ch or protestant services? Never 04/18/2023 Do you belong to any clubs o r organizations such as shinto groups, unions, fraternal or athletic groups, or [...] and heating? Not hard at all 04/18/2023 [facility] of Occupat ional Health - [...] a nursing home (including now)? No 04/18/2023 Comments No [...] EDT Office Visit N[facility]S NMA POD 368 [place] [address] Milton Duvall, DPM FACFAS 368 [place] [address] 12/16/2024 9:45 AM EDT Office Visit [facility] [place] [facility] [address] [facility] 110 [place] [address] Emerald Sanchez MD [address] [facility] 110 [place] [address] 12/26/2024 1:20 PM EDT Office Visit [facility] [place] [facility] [address] [facility] 310 [place] [address] Jatin Cabrera MD [address] [facility] [address] [place] [address] documented as of this encounter Goals Goal [...] documented as of this encounter Care Teams Ribbon Hand Relationship Specialty Start Date End Date Emerald Sanchez MD 112 [facility] 110 [place] [address] PCP - Medical [place] Commercial 10/22/18 04/23/99 Emerald Sanchez MD 112 [facility] 110 [place] [address] PCP - General Family Medicine 08/30/22 documented as of this encounter
--- OUTSIDE RECORDS SUMMARY | 2024-12-12 11:26 | XMS_ITS | Encounter Summary ---
Author Organization [facility] Address [address] [facility] [place] [address] Care Team Providers Care Computing Services Director Name Role Phone Emerald Sanchez MD Unavailable Emerald Sanchez MD Primary Care Provider [phone] Encounter Details Date Type Department Care Team (Late st Contact Info) Description 04/02/2024 Abstract [facility] [place] [facility] [address] [facility] 110 [place] [address] Emerald Sanchez MD [address] [place] 110 [place] [address] Social History Tobacco Use Types Packs/Day Years [...] any clubs o r organizations such as mormon groups, unions, fraternal or athletic groups, or [...] and heating? Not hard at all 04/18/2023 [facility] of Occupat ional Health - Occupational [...] EDT Office Visit NOMS NMA POD 368 [place] [address] Milton Duvall, DPM FACFAS 368 [place] [address] 12/16/2024 9:45 AM EDT Office Visit [facility] [place] [facility] [address] [facility] 110 [place] [address] Emerald Sanchez MD [address] [facility] 110 [place] [address] 12/26/2024 1:20 PM EDT Office Visit [facility] [place] [facility] [address] [facility] 310 [place] [address] Jatin Cabrera MD [address] [facility] [address] S[address] [place] [phone] documented as of this encounter Goals Goal [...] documented as of this encounter Care Teams Computing Services Director Relationship Specialty Start Date End Date Emerald Sanchez MD 112 [facility] 110 [place] [address] PCP - Medical [place] Commercial 10/22/18 04/23/99 Emerald Sanchez MD 112 [facility] 110 [place] [address] PCP - General Family Medicine 08/30/22 documented as of this encounter
--- OUTSIDE RECORDS SUMMARY | 2024-12-12 11:26 | XMS_ITS | Encounter Summary ---
Author Organization [facility] Address [address] [facility] [place] [address] Care Team Providers Care Director Of Enterprise Strategy Name Role Phone Emerald Sanchez MD Unavailable Emerald Sanchez MD Primary Care Provider [phone] Encounter Details Date Type Department Care Team (Late st Contact Info) Description 03/24/2023 Abstract [facility] [place] [facility] [address] [facility] 110 [place] [address] Emerald Sanchez MD [address] [facility] 110 [place], [place] [address] Social History Tobacco Use Types Packs/Day Years [...] EDT Office Visit N[facility]S NMA POD 368 [place] [address] Milton Duvall, DPM FACFAS 368 [facility] A [place], [place] [address] 12/16/2024 9:45 AM EDT Office Visit [facility] [address] [facility] 110 [place] [address] Emerald Sanchez MD [address] [facility] 110 [place] [address] 12/26/2024 1:20 PM EDT Office Visit [facility] Matt [facility] [address] [facility] 310 [place] [address] Jatin Cabrera MD 3589 [facility] [address] [address] documented as of this encounter Visit Diagnoses Not on filedocumented in this encounter Care Teams Director Of Enterprise Strategy Relationship Specialty Start Date End Date Emerald Sanchez MD [address] [facility] 110 [place] [address] PCP - Medical [place] Commercial 10/22/18 04/23/99 Emerald Sanchez MD [address] [facility] 110 [place] [address] PCP - General Family Medicine 08/30/22 documented as of this encounter
--- OUTSIDE RECORDS SUMMARY | 2024-12-12 11:26 | XMS_ITS | Encounter Summary ---
Author Organization [facility] Address [address] [facility] [place] [address] Care Team Providers Care Science Job Titles Name Role Phone Emerald Sanchez MD Unavailable Emerald Sanchez MD Primary Care Provider [phone] Encounter Details Date Type Department Care Team (Late st Contact Info) Description 05/02/2024 Abstract [facility] [place] [facility] [address] [facility] 110 [place] [address] Emerald Sanchez MD [address] [place] 110 [place] [address] Social History Tobacco Use Types Packs/Day Years [...] often do you attend chur ch or yarsanism services? Never 04/18/2023 Do you belong to any clubs o r organizations such as sikhism groups, unions, fraternal or athletic groups, or [...] and heating? Not hard at all 04/18/2023 [facility] of Occupat ional Health - Occupational [...] EDT Office Visit NOMS NMA POD 368 [place] [address] Milton Duvall, DPM FACFAS 368 [place] [address] 12/16/2024 9:45 AM EDT Office Visit [facility] [place] [facility] [address] [facility] 110 [place] [address] Emerald Sanchez MD [address] [place] 110 [place] [address] 12/26/2024 1:20 PM EDT Office Visit [facility] [place] [facility] [address] [place] 310 [place] [address] Jatin Cabrera MD [address] [facility] [address] [place] [phone] documented as of this encounter Goals Goal [...] documented as of this encounter Care Teams Science Job Titles Relationship Specialty Start Date End Date Emerald Sanchez MD 112 [facility] 110 [place] [address] PCP - Medical [place] Commercial 10/22/18 04/23/99 Emerald Sanchez MD 112 [facility] 110 [place] [address] PCP - General Family Medicine 08/30/22 documented as of this encounter
--- OUTSIDE RECORDS SUMMARY | 2024-12-12 11:26 | XMS_ITS | Encounter Summary ---
Author Organization [facility] Address [address] [facility] [place] [address] Care Team Providers Care Automotive Lube Technician Name Role Phone Emerald Sanchez MD Unavailable Emerald Sanchez MD Primary Care Provider [phone] Encounter Details Date Type Department Care Team (Late st Contact Info) Description 08/27/2024 Abstract [facility]S [place] [facility] [address] [facility] 110 [place] [address] Emerald Sanchez MD [address] [place] 110 [place] [address] Social History Tobacco Use Types Packs/Day Years [...] week 05/09/2024 How often do you attend anabaptist or adventism serv ices? Never 05/09/2024 Do you belong to any clubs o r organizations such as anabaptist groups, unions, fraternal or athletic groups, or [...] Recorded Patient Health Questionnaire-2 Score 0 08/01/2024 [facility] Occupat ional Health - Occupational [...] a group home (including now)? No 04/18/2023 Housing Stability [...] any time in the past 12 m [facility], were you homeless or living in a group home (including now)? No 05/09/2024 Comments No [...] EDT Office Visit N[facility]S NMA POD 368 [facility] [place] [address] Milton Duvall, DPM FACFAS 368 [facility] [place] [address] 12/16/2024 9:45 AM EDT Office Visit N[facility]S [place] [facility] 112 [facility] 110 [place] [address] Emerald Sanchez MD [address] [facility] 110 [place] [address] 12/26/2024 1:20 PM EDT Office Visit N[facility] [place] [facility] [address] [facility] 310 [place] [address] Jatin Cabrera MD 5381 [facility] [address] [address] documented as of this encounter Goals Goal [...] documented as of this encounter Care Teams Automotive Lube Technician Relationship Specialty Start Date End Date Emerald Sanchez MD [address] [facility] 110 [place] [address] PCP - Medical [place] Commercial 10/22/18 04/23/99 Emerald Sanchez MD [address] [facility] 110 [place] [address] PCP - General Family Medicine 08/30/22 documented as of this encounter
--- OUTSIDE RECORDS SUMMARY | 2024-12-12 11:26 | XMS_ITS | Encounter Summary ---
Author Organization [facility] Address [address] [place] [address] Care Team Providers Care Pet Caretaker Name Role Phone Emerald Sanchez MD Primary Care Provider [phone] Deena Osorio RECORD SYSTEMS ANALYST Unavailable [phone] Darwin Starr DO Unavailable [phone] Source Comments In the event this information is protected by the Federal Confidentiality of Alcohol and Drug AbusePatient Records regulations: The Federal rules restrict any use of the information to criminally investigate or prosecute any alcohol or drug abuse patient.[facility] Reason for Referral * Diagnostic Procedure Only (Routine) - Closed Specialty Diagnoses / Procedures Referred By Contac t Referred To Contact [facility] Diagnoses Elevated LFTs Procedures US ABD RT UPPER QUADRANT US ABDOMINAL REAL [place] W/[place] [address] [place] [address] Phone: tel: fax: [place] [phone] Referral ID Status Reason Start Date Expiration Date V isits Requested Visits Authorized [id number] Closed Auto-Generate d Referral 11/24/2021 12/24/2022 1 1 Encounter Details Date Type Department Care Team (Late st Contact Info) Description 11/23/2021 Get Medical Advice Gastroenterology [address] [place] [address] Provider, [facility] [...] N ot on file 04/02/2020 Data from: [email or web address]/. Last address used for calculation Not on [...] EDT Office Visit Gynecology [address] [place] [address] Emma Ying, [employer].ELECTRONICS PARTS SALES REPRESENTATIVE [address] [place] [address] Other specified dyspareunia documented as of this encounter Results * US ABD RT UPPER QUADRANT (12/10/2021 2:33 PM EDT) Anatomical Region Laterality Modality Abdomen Ultrasound 12/10/2021 2:33 PM EDT Impressions 12/10/2021 2:47 PM EDT IMPRESSION: 1. Hepatic steatosis and a liver cyst. There are no gallstones or biliary dilatation. Art Appraiser: MINAL Transcribe Date/Time: Dec 10 2021 2:42P Dictated by : CANDIDA COYLE MD This examination was interpreted and the report reviewed and electronically signed by: CANDIDA COYLE MD on Dec 10 2021 2:44PM EST Narrative 12/10/2021 2:47 PM EDT * * *Final Report* * * DATE OF EXAM: Dec 10 2021 2:33PM [facility] 1032 - US ABD RIGHT UPPER [...] no focal lesions identified. Procedure Note Provider, [facility] [place] - 12/10/2021 * * *Final Report* * * DATE OF EXAM: Dec 10 2021 2:33PM [facility] 1032 - US ABD RIGHT UPPER [...] There are no gallstones or biliary dilatation. Art Appraiser: MINAL Transcribe Date/Time: Dec 10 2021 2:42P Dictated by : CANDIDA COYLE MD This examination was interpreted and the report reviewed and electronically signed by: CANDIDA COYLE MD on Dec 10 2021 2:44PM EST us Crowell Dakhil MD [facility] Final Result documented in this encounter Visit Diagnoses Diagnosis Elevated LFTs- Primary Other abnormal blood chemistry Elevated LFTs Other abnormal blood chemistry documented in this encounter Additional Health Concerns Infection Onset Date Last Indicated Resolved Time C. difficile 05/22/2024 05/22/2024 06/21/2024 8:51 PM EST documented as of this encounter Care Teams Pet Caretaker Relationship Specialty Start Date End Date Emerald Sanchez MD 112 [facility] 110 [place] [address] PCP - General Family Medicine 03/27/19 Deena Osorio, RECORD SYSTEMS ANALYST 112 [facility] 110 [place], [place] [phone] Referring Family Medicine 04/03/24 Darwin Starr DO [address] [place], [place] [address]Kay[place] [address] Referring Electronic Repair Troubleshooter 07/02/24 documented as of this encounter
--- OUTSIDE RECORDS SUMMARY | 2024-12-12 11:26 | XMS_ITS | Encounter Summary ---
Author Organization [facility] Address [address] [facility] [place] [address] Care Team Providers Care Vp Product Name Role Phone Emerald Sanchez MD Unavailable Emerald Sanchez MD Primary Care Provider Encounter Details Date Type Department Care Team (Late st Contact Info) Description 03/22/2023 Abstract [facility] [address] [facility] 110 [place] [address] Emerald Sanchez MD [address] [facility] 110 [place], [place] [id number] Social History Tobacco Use Types Packs/Day Years [...] EDT Office Visit [facility] POD [address] [place] [address] Milton Duvall, DPM FACFAS 368 [facility] [place], [place] [address] 12/16/2024 9:45 AM EDT Office Visit [facility] [address] [facility] 110 [place] [address] Emerald Sanchez MD [address] [facility] 110 [place] [address] 12/26/2024 1:20 PM EDT Office Visit [facility] [address] [facility] 310 [place] [address] Jatin Cabrera MD 0544 [facility] [address] [address] documented as of this encounter Visit Diagnoses Not on filedocumented in this encounter Care Teams Vp Product Relationship Specialty Start Date End Date Emerald Sanchez MD [address] [facility] 110 [place] [address] PCP - Medical [place] [employer] 10/22/18 04/23/99 Emerald Sanchez MD [address] [facility] 110 [place] [address] PCP - General Family Medicine 08/30/22 documented as of this encounter
--- OUTSIDE RECORDS SUMMARY | 2024-12-12 11:26 | XMS_ITS | Clinical Summary ---
Author Organization [facility] Address [address] [facility], [address] [place] [address] Care Team Providers Care Assistant Account Executive Name Role Phone Emerald Sanchez MD Primary Care Provider [phone] Allergies Active Allergy Reactions Criticality Noted Date Comments Cat Dander Anaphylaxis High 11/30/2022 Iodinated Contrast Media Anaphylaxis,Hives,It syd[place] High 04/12/2019 Iodine Itching,Swelling 04/11/2019 Omnipaque 300: Patient experienced itching on her neck and left side of her face. Also, pt complained of tongue feeling itchy and feels like something is stuck in her throat . Patient received diphenhydramine (Benadryl) Iohexol 03/21/2023 Medications ALPRAZolam (XANAX) 0.5 MG tablet Take 1 tablet by mouth nightly. Active cariprazine hcl (VRAYLAR) 4.5 MG CAPS capsule Take 1 capsule by mouth nightly Active EPINEPHrine (SYMJEPI) 0.3 MG/0.3ML SOSY injection Inject 0.3 mLs into the muscle as needed for Anaphylaxis Active lisdexamfetamin e (VYVANSE) 50 MG capsule Take 1 capsule by mouth every morning. Max Daily Amount: 50 mg Active albuterol sulfate HFA (VENTOLIN HFA) 108 (90 Base) MCG/ACT inhaler Inhale 2 puffs into the lungs every 6 hours as needed for Wheezing Active buPROPion (WELLBUTRIN SR) 150 MG extended release tablet Take 1 tablet by mouth 2 times daily Active Cholecalciferol (VITAMIN D3) 125 MCG (5000 UT) TABS Take 1 tablet by mouth Daily Active ondansetron (ZOFRAN) 4 MG tablet Take 1 tablet by mouth every 8 hours as needed for Nausea or Vomiting 20 tablet 3 Active Active Problems Problem Noted Date Diagnosed Date Calculus of gallbladder with out cholecystitis without obstruction 03/23/2023 Acute pancreatitis without infection or necrosis 03/21/2023 Acute biliary pancreatitis without infection or necrosis 03/21/2023 History of COVID-19 02/06/2023 Gastroparesis 11/02/2022 Anxiety 09/23/2022 Bipolar disorder, in partial remission, most recent episode manic 09/23/2022 Attention deficit hyperactiv ity disorder, predominantly inattentive type 09/23/2022 Overview (03/22/2023): Last Assessment & Plan: Patient's Current ADD is controlled with current dose No evidence of overuse or abuse Weight has been stable Encouraged Medication Holidays PDMP reviewed F/U routinely every 4 months Diverticular disease of colon 09/23/2022 Elevated liver enzymes 09/23/2022 Irritable bowel syndrome with constipation 09/23 Mild intermittent asthma without complication Hypercholesterolemia 07/01/2021 Atherosclerosis of coronary artery without angin a pectoris 05/18/2021 Gastroesophageal reflux disease without esophagi tis 07/09/2019 Social History Tobacco Use Types Packs/Day Years Used Date Smoking Tobacco: Former Cigarettes Q uit: 05/06/2008 Smokeless Tobacco: Never Tobacco Cessation:Counseling Given: Not Answered Alcohol Use Standard Drinks/Week Comments Not Asked 0 (1 standard drink = 0.6 oz pur e alcohol) 1 a week. Last 03/18/23 [facility] Utilities Answer Date Recorded In the past 12 months has e Simpli[employer]ity, gas, oil, or water Navdy threatened to shut off services in your home? No 03/21/2023 Hunger Vital Sign Answer Date Recorded Within the past 12 months, y ou worried that your food would run out before you got the money to buy more. Never true 03/21/20 23 Within the past 12 months, t he food you bought just didn't last and you didn't have money to get more. Never true 03/21/2023 PRAPARE - Transportation Answer Date Re corded In the past 12 months, has l ack of transportation kept you from medical appointments or from getting medications? No 02/23 In the past 12 months, has l ack of transportation kept you from meetings, work, or from getting things needed for daily living? No 03/21/2023 Housing Stability Vital Sign Answer Celso e Recorded In the last 12 months, was t here a time when you were not able to pay the mortgage or rent on time? No 03/21/2023 In the last 12 months, how many places have you lived? 1 03/21/2023 In the last 12 months, was t here a time when you did not have a steady place to sleep or slept in a long-term (including now)? No 03/21/2023 Housing Stability Vital Sign Answer Celso e Recorded In the last 12 months, was t here a time when you were not able to pay the mortgage or rent on time? No 03/21/2023 Number of Times Moved in the Last Year Not on fi le 03/21/2023 Homeless in the Last Year Not on file 2022 Interpersonal Safety ([facility] HRSN) Answer Date Recorded How often does anyone, inclu ding family and friends, physically hurt you? 1 03/21/2023 Food Insecurity Answer Date Recorded Within the past 12 months, y ou worried that your food would run out before you got the money to buy more. 1 03/21/2023 Within the past 12 months, t he food you bought just didn't last and you didn't have money to get more. 1 03/21/2023 Interpersonal Safety Domain Source: IP Abuse Scr eening Answer Date Recorded Read-Only, Retired: Physical Abuse Denies 03/21/2023 Read-Only, Retired: Verbal Abuse Denies 03/21/2023 Read-Only, Retired: Emotional abuse Denies 03/21/2023 Read-Only, Retired: Financial Abuse Denies 03/21/2023 Read-Only, Retired: Sexual abuse Denies 03/21/2023 Comments Unknown Sex and Gender Information Value Date Recorded Sex Assigned at Female 12/11/2023 12:06 PM EDT Legal Sex Female 12:31 PM EST Gender Identity Female 12/11/2023 12:06 PM EDT Sexual Orientation Straight 12/11/2023 12 :06 PM EDT Last Filed Vital Signs Vital Sign Reading Time Taken Comments Blood Pressure 111/67 03/24/2023 9:43 AM EST Pulse 88 03/24/2023 9:43 AM EST Temperature 36.8 C (98.2 F) 03/24/2023 9:43 AM EST Respiratory Rate 16 03/24/2023 9:43 AM EST Oxygen Saturation 100% 03/24/2023 9:43 AM EST Inhaled Oxygen Concentration - - Weight 70.9 kg (156 lb 6.4 oz) 03/24/2023 2:57 A M EST Height 157.5 cm (5' 2.01 ) 03/21/2023 11:[address] Body Mass Index 28.6 03/21/2023 11:15 PM EST Plan of Treatment Health Maintenance Due Date Last Done Comments Varicella vaccine (2 of 2 - 2-dose childhood series) 1992 10/31/1990 Depression Monitoring 2000 HIV screen 09/29/2003 Hepatitis C screen 2006 HPV vaccine (2 - 3-dose series) 11/30/2006 11/02/2006 Pneumococcal 0-49 years Vaccine (1 of 2 - PCV) 09/29/2007 DTaP/Tdap/Td vaccine (6 - Td or Tdap) 02/06/2020 02/05/2010, 12/28/1993, 12/07/1992, Additional history exists COVID-19 Vaccine ( season) 2023 11/02/2021, 04/29/2021, 03/03/2021 Flu vaccine (#1) 11/22/2024 02/09/2021, , 01/08/2018, Additional history exists Polio vaccine Completed 12/07/1992, 05/25, 05/21/1990, Additional history exists Meningococcal (ACWY) vaccine Completed 11/02/2006 Hepatitis B vaccine Completed 01/05/2007, 11/02/2006, 02/20/1998 Hepatitis A vaccine Aged Out No longe r eligible based on patient's age to complete this topic Hib vaccine Aged Out No longer eligi ble based on patient's age to complete this topic Meningococcal B vaccine Aged Out No l onger eligible based on patient's age to complete this topic Medical Devices Implanted Type Area Editor In Chief [employer]aper Device Identifier Shelf Expiration Date Model / Serial / Lot Clip Int L Polymer Ernie Lig Hem O Ernie (6ea/Pk) - [id number] Implanted:Qty: 1 on 03/23/2023 by Brandyn Cortés MD at [facility] [employer] 11/23/2027 [id number] / / [id number] Insurance [employer] Advance Directives * Full Code (Latest Code Status on File) Date Activated Date Inactivated Comments 03/21/2023 11:04 PM 03/24/2023 6:54 PM Care Teams Assistant Account Executive Relationship Specialty Start Date End Date Emerald Sanchez MD PCP - General Family Medicine 11/02/18
--- OUTSIDE RECORDS SUMMARY | 2024-12-12 11:27 | XMS_ITS | Encounter Summary ---
Author Organization [facility] Address [address] [place] [address] Care Team Providers Care Color Developer Name Role Phone Emerald Sanchez MD Primary Care Provider [phone] Deena Osorio MANAGING PRINCIPAL Unavailable [phone] Darwin Starr DO Unavailable [phone] Source Comments In the event this information is protected by the Federal Confidentiality of Alcohol and Drug AbusePatient Records regulations: The Federal rules restrict any use of the information to criminally investigate or prosecute any alcohol or drug abuse patient.[facility] Encounter Details Date Type Department Care Team (Late st Contact Info) Description 11/08/2024 Patient Msg HOSP MAIN H060 [address] [place] [address] Provider, Ccf Sign up to manage your [...] is lower risk 4 10/17/2022 Data from: https://www.neighborhoodatlas.medicine.[facility].edu/. Last address used for calculation [address] [...] EDT Office Visit Gynecology [address] [place] [address] Emma Ying APRN.COMPUTER OPERATIONS SUPERVISOR [address] [place] [address] Other specified dyspareunia documented as of this encounter Goals Goal Patient Goal Type Associated Problems Recent Progress Patient-Stated? Author Blood Pressure < 140/90 Blood Pressure 112/76( 025 1:00 PM EDT) No Solo Mora MD documented as of this encounter Visit Diagnoses Not on filedocumented in this encounter Care Teams Color Developer Relationship Specialty Start Date End Date Emerald Sanchez MD [address] [facility] 110 [place] [address] PCP - General Family Medicine 03/27/19 Deena Osorio APRN [address] [facility] [address] [place] [address] Referring Family Medicine 04/03/24 Darwin Starr DO [address] [place] [address] Dr Carlyle Mancuso, [place] [id number] Referring Manager Channel 07/02/24 documented as of this encounter
--- OUTSIDE RECORDS SUMMARY | 2024-12-12 11:27 | XMS_ITS | Encounter Summary ---
Author Organization [facility] Address [address] [facility] [address] Care Team Providers Care Restaurant Area Director Name Role Phone Emerald Sanchez MD Unavailable Emerald Sanchez MD Primary Care Provider [phone] Encounter Details Date Type Department Care Team (Late st Contact Info) Description 04/03/2023 Abstract [facility]ro Scott [facility] [address] [facility] 110 [place] [address] Emerald Sanchez MD [address] [facility] 110 [place], [place] [id number] Social History Tobacco Use Types Packs/Day Years [...] EDT Office Visit [facility] N[facility] POD [address] [place] [address] Milton Duvall, DPM FACFAS 368 [facility] [place], [place] [address] 12/16/2024 9:45 AM EDT Office Visit [facility] [address] [facility] 110 [place] [address] Emerald Sanchez MD [address] [facility] 110 [place] [address] 12/26/2024 1:20 PM EDT Office Visit [facility] [address] [facility] 310 [place] [address] Jatin Cabrera MD 2069 [facility] [address] [address] documented as of this encounter Visit Diagnoses Not on filedocumented in this encounter Care Teams Restaurant Area Director Relationship Specialty Start Date End Date Emerald Sanchez MD [address] [facility] 110 [place] [address] PCP - Medical [place] [employer] 10/22/18 04/23/99 Emerald Sanchez MD [address] [facility] 110 [place] [address] PCP - General Family Medicine 08/30/22 documented as of this encounter
--- OUTSIDE RECORDS SUMMARY | 2024-12-12 11:27 | XMS_ITS | Encounter Summary ---
Author Organization [facility] Address [address] [facility] [place] [address] Care Team Providers Care Roll On Man Name Role Phone Emerald Sanchez MD Unavailable Emerald Sanchez MD Primary Care Provider [phone] Encounter Details Date Type Department Care Team (Late Contact Info) Description 02/14/2023 Abstract [facility] [address] [facility] 110 [place] [address] Emerald Sanchez MD [address] [facility] 110 [place] [address] Social History Tobacco Use Types Packs/Day Years [...] EDT Office Visit [facility]OD [address] [facility] [place] [address] Milton Duvall, DPM FACFAS [address] [facility] [place] [place] [address] 12/16/2024 9:45 AM EDT Office Visit [facility] [place] [address] [facility] 110 [place] [address] Emerald Sanchez MD [address] [facility] 110 [place] [address] 12/26/2024 1:20 PM EDT Office Visit [facility] [place] [facility] [address] [facility] 310 [place] [address] Jatin Cabrera MD [address] [id number] documented as of this encounter Visit Diagnoses Not on filedocumented in this encounter Care Teams Roll On Man Relationship Specialty Start Date End Date Emerald Sanchez MD [address] [facility] 110 [place] [address] PCP - Medical [place] [employer] 10/22/18 04/23/99 Emerald Sanchez MD [address] [facility] 110 [place] [address] PCP - General Family Medicine 08/30/22 documented as of this encounter
--- OUTSIDE RECORDS SUMMARY | 2024-12-12 11:27 | XMS_ITS | Encounter Summary ---
Author Organization [facility] Address [address] [facility] [place] [address] Care Team Providers Care Intern Product Marketing Manager Name Role Phone Emerald Sanchez MD Unavailable Emerald Sanchez MD Primary Care Provider [phone] Encounter Details Date Type Department Care Team (Late Contact Info) Description 02/13/2023 Abstract [facility] [address] [facility] 110 [place] [address] Emerald Sanchez MD [address] [facility] 110 [place] [address] Social History Tobacco Use Types Packs/Day Years [...] NMA POD 368 [facility] [place] [address] Milton Duvall, DPM FACFAS 368 [facility] [place] [address] 12/16/2024 9:45 AM EDT Office Visit N[facility]S [place] [address] [facility] 110 [place] [address] Emerald Sanchez MD [address] [facility] 110 [place] [address] 12/26/2024 1:20 PM EDT Office Visit [facility] [place] [facility] [address] [facility] 310 [place] [address] Jatin Cabrera MD [address] [id number] documented as of this encounter Visit Diagnoses Not on filedocumented in this encounter Care Teams Intern Product Marketing Manager Relationship Specialty Start Date End Date Emerald Sanchez MD [address] [facility] 110 [place] [address] PCP - Medical [place] [employer] 10/22/18 04/23/99 Emerald Sanchez MD [address] [facility] 110 [place] [address] PCP - General Family Medicine 08/30/22 documented as of this encounter
--- OUTSIDE RECORDS SUMMARY | 2024-12-12 11:27 | XMS_ITS | Encounter Summary ---
Author Organization [facility] Address [address] [facility] [place] [address] Care Team Providers Care Assistant Manager Airside Operations Name Role Phone Emerald Hagen MD Unavailable Emerald Hagen MD Primary Care Provider [phone] Encounter Details Date Type Department Care Team [...] week 04/18/2023 How often do you attend [facility] or protestant services? Never 04/18/2023 Do [...] and heating? Not hard at all 04/18/2023 [facility] - Occupational [...] EDT Office Visit [facility] NMA POD [address] [place] [address] Milton Duvall, DPM FACFAS 368 [place] [address] 12/16/2024 9:45 AM EDT Office Visit [facility] [address] [facility] 110 [place] [address] Emerald Hagen MD [address] [facility] 110 [place] [address] 12/26/2024 1:20 PM EDT Office Visit [facility] [place] [facility] [address] [facility] 310 [place] [address] Jatin Cabrera MD 5334 [facility] [address] [address] documented as of this encounter Goals Goal [...] AM EST Narrative 03/06/2024 7:23 [place] [address] XRay Report Signed Patient: BELGICA BARNETT MR#: [id number] : 1990 Acct:[id number] Age/Sex: 33 / F ADM Date: 03/04/24 Loc: EC Attending Dr: Laurie Navas M.D. Ordering Physician: Laurie Navas M.D. Date of Service: 03/04/24 Procedure(s): XR ankle RT min 3V Accession Number(s): [id number] cc: EMERALD HAGEN ; Laurie Navas M.D. [place] [address] Patient Name: BELGICA BARNETT MRN: [facility]:[id number] date: 1990 Sex: F Assigned Patient Location: Current Patient Location: Accession/Order Number: [id number] Exam Date: 03/04/2024 08:02 Report Date: 03/06/2024 [...] M.D. Signed By: 03/06/24722 DD/ 9 TD/TT: Factory Assembler: Procedure Note Radiology, Radiologist, MD - 03/06/2024 [place] [address] XRay Report Signed Patient: BELGICA BARNETT AMR#: [id number] : 1990Acct:[id number] Age/Sex: 33 / FADM Date: 03/04/24 Loc: EC Attending Dr: Laurie Navas M.D. Ordering Physician: Laurie Navas M.D. Date of Service: 03/04/24 Procedure(s): XR ankle RT min 3V Accession Number(s): [id number] cc: EMERALD HAGEN ; Laurie Navas M.D. [place] [id number] Patient Name: BELGICA BARNETT MRN: [facility]:[id number] date: 1990 Sex: F Assigned Patient Location: Current Patient Location: Accession/Order Number: [id number] Exam Date: 03/04/2024 08:02 Report Date: 03/06/2024 [...] Butler M.D. Signed By:03/06/24722 DD/ 9 TD/TT: Factory Assembler: us Generic External Data Provider [facility] Final Result documented in this encounter Visit Diagnoses Not on filedocumented in this encounter Additional Health Concerns Active Problems Noted Date Diagnosed Date Patient on antidepressant monitoring plan 2023 Baseline PHQ-9 05/08/2023 documented as of this encounter Care Teams Assistant Manager Airside Operations Relationship Specialty Start Date End Date Emerald Hagen MD 112 [facility] 110 [place] [address] PCP - Medical [place] [employer] 10/22/18 04/23/99 Emerald Hagen MD 112 [facility] 110 [place] [address] PCP - General Family Medicine 08/30/22 documented as of this encounter
--- OUTSIDE RECORDS SUMMARY | 2024-12-12 11:27 | XMS_ITS | Encounter Summary ---
Author Organization [facility] Address [address] [facility] [place] [address] Care Team Providers Care Dentistry Professor Name Role Phone Emerald Sanchez MD Unavailable Emerald Sanchez MD Primary Care Provider [phone] Encounter Details Date Type Department Care Team (Late st Contact Info) Description 07/09/2024 Abstract [facility] Family [facility] [address] [facility] 110 [place] [address] Emerald Sanchez MD [address] [place] 110 [place] [address] Social History Tobacco Use Types Packs/Day Years [...] week 05/09/2024 How often do you attend hoahaoism or latter day serv ices? Never 05/09/2024 Do you belong [...] Recorded Patient Health Questionnaire-2 Score 0 07/04/2024 [facility] - [...] place to sleep or slept in a halfway (including now)? No 04/18/2023 Housing Stability Vital [...] were you homeless or living in a halfway (including now)? No 05/09/2024 Comments No Sex [...] EDT Office Visit [facility] N[facility] POD [address] [facility] [address] Milton Duvall, DPM FACFAS 368 [facility] [place] [address] 12/16/2024 9:45 AM EDT Office Visit [facility] 112 [facility] 110 [place] [address] Emerald Sanchez MD [address] [facility] 110 [place] [address] 12/26/2024 1:20 PM EDT Office Visit [facility] [place] [facility] [address] [facility] 310 [place] [address] Jatin Cabrera MD 4447 [facility] [address] [address] documented as of this encounter Goals Goal [...] documented as of this encounter Care Teams Dentistry Professor Relationship Specialty Start Date End Date Emerald Sanchez MD [address] [facility] 110 [place] [address] PCP - Medical [place] [employer] 10/22/18 04/23/99 Emerald Sanchez MD [address] [facility] 110 [place] [address] PCP - General Family Medicine 08/30/22 documented as of this encounter
--- OUTSIDE RECORDS SUMMARY | 2024-12-12 11:27 | XMS_ITS | Encounter Summary ---
Author Organization [facility] Address [address] [facility] [place] [address] Care Team Providers Care Emissions Technician Name Role Phone Emerald Sanchez MD Unavailable Emerald Sanchez MD Primary Care Provider [phone] Encounter Details Date Type Department Care Team (Late st Contact Info) Description 03/29/2023 Abstract [facility] [place] [facility] [address] [place] [address] [place] [address] Emerald Sanchez MD [address] [facility] 110 [place], [place] [id number] Social History Tobacco Use Types Packs/Day Years [...] EDT Office Visit [facility] POD [address] [place] [address] Milton Duvall, DPM FACFAS 368 [facility] [place], [place] [id number] 12/16/2024 9:45 AM EDT Office Visit [facility] [address] [place] [address] [place] [address] Emerald Sanchez MD [address] [facility] 110 [place] [address] 12/26/2024 1:20 PM EDT Office Visit [facility] [address] [facility] 310 [place] [address] Jatin Cabrera MD [address] [facility] [address] [address] documented as of this encounter Visit Diagnoses Not on filedocumented in this encounter Care Teams Emissions Technician Relationship Specialty Start Date End Date Emerald Sanchez MD [address] [facility] 110 [place] [address] PCP - Medical [place] Commercial 10/22/18 04/23/99 Emerald Sanchez MD [address] [facility] 110 [place] [address] PCP - General Family Medicine 08/30/22 documented as of this encounter
--- OUTSIDE RECORDS SUMMARY | 2024-12-12 11:27 | XMS_ITS | Encounter Summary ---
Author Organization [facility] Address [address] [place] [address] Care Team Providers Care Dairy Frozen Manager Name Role Phone Emerald Sanchez MD Primary Care Provider [phone] Deena Osorio MARINE PILOT Unavailable [phone] Darwin Starr DO Unavailable [phone] Source Comments In the event this information is protected by the Federal Confidentiality of Alcohol and Drug AbusePatient Records regulations: The Federal rules restrict any use of the information to criminally investigate or prosecute any alcohol or drug abuse patient.[facility] Encounter Details Date Type Department Care Team (Late st Contact Info) Description 09/27/2024 Patient Msg [facility] [address] [place] [address] Provider, Ccf CPP CONSULT Social History Tobacco [...] is lower risk 4 10/17/2022 Data from: https://www.neighborhoodatlas.medicine.[facility].edu/. Last address used for calculation 5[address] [...] EDT Office Visit Gynecology [address] [place] [address] Emma Ying APRN.ROAD INSPECTOR [address] [place] [address] Other specified dyspareunia documented as of this encounter Goals Goal Patient Goal Type Associated Problems Recent Progress Patient-Stated? Author Blood Pressure < 140/90 Blood Pressure 112/76( 025 1:00 PM EDT) No Solo Mora MD documented as of this encounter Visit Diagnoses Not on filedocumented in this encounter Care Teams Dairy Frozen Manager Relationship Specialty Start Date End Date Emerald Sanchez MD [address] [place] 110 [place] [address] PCP - General Family Medicine 03/27/19 Deena Osorio, MARINE PILOT [address] [place] 110 [place] [address] Referring Family Medicine 04/03/24 Darwin Starr DO 102 [place] [address] Referring Stamp Pad Maker 07/02/24 documented as of this encounter
--- OUTSIDE RECORDS SUMMARY | 2024-12-12 11:27 | XMS_ITS | Encounter Summary ---
Author Organization [facility] Address [address] [facility] [place] [address] Care Team Providers Care Cabinet Mounter Name Role Phone Emerald Sanchez MD Unavailable Emerald Sanchez MD Primary Care Provider [phone] Encounter Details Date Type Department Care Team (Late st Contact Info) Description 04/03/2024 Abstract [facility] [place] [facility] [address] [facility] 110 [place] [address] Emerald Sanchez MD [address] [place] 110 [place] [address] Social History Tobacco Use Types Packs/Day Years [...] EDT Office Visit [facility] NMA POD 368 [place] [address] Milton Duvall, DPM FACFAS 368 [place] [address] 12/16/2024 9:45 AM EDT [facility] [place] [facility] [address] [facility] 110 [place] [address] Emerald Sanchez MD [address] [facility] 110 [place] [address] 12/26/2024 1:20 PM EDT Office Visit [facility] [place] [facility] [address] [facility] 310 [place] [address] Jatin Cabrera MD [address] [facility] [address] S[address]on [address] [place] [address] [phone] documented as of this encounter Goals Goal [...] documented as of this encounter Care Teams Cabinet Mounter Relationship Specialty Start Date End Date Emerald Sanchez MD 112 [facility] 110 [place] [address] PCP - Medical [place] Commercial 10/22/18 04/23/99 Emerald Sanchez MD 112 [facility] 110 [place] [address] PCP - General Family Medicine 08/30/22 documented as of this encounter
--- OUTSIDE RECORDS SUMMARY | 2024-12-12 11:27 | XMS_ITS | Encounter Summary ---
Author Organization [facility] Address [address] [place] [address] Care Team Providers Care Scrap Sorter Name Role Phone Emerald Sanchez MD Unavailable Emerald Sanchez MD Primary Care Provider [phone] Encounter Details Date Type Department Care Team (Late st Contact Info) Description 12/10/2024 Patient Outreach [facility] [address] [place] [address] Gifty Mireles LPN 112 [facility] 110 [place] [address] Social History Tobacco Use Types Packs/Day Years [...] week 05/09/2024 How often do you attend shinto or pentecostalism serv ices? Never 05/09/2024 Do [...] Recorded Patient Health Questionnaire-2 Score 4 10/08/2024 [facility] of Occupat [...] any time in the past 12 m [facility], were you homeless or living in a longterm (including now)? No 05/09/2024 Comments No Sex and Gender Information Value Date Recorded Sex Assigned at Not on file Legal Sex Female 7:29 PM EDT Gender Identity Not on file Sexual Orientation Not on file documented as of this encounter Progress Notes * Gifty Mireles LPN - 12/10/2024 1:44 PM EDT Images from the original note were not included. Records in chart. VANESSA complete. Medications not reconciled with pt. States no new medications ordered in ER. Pt states feeling a bit better, but still has pain in lower back and ribcage. Flowsheet Row Patient Outreach from 12/10/2024 in [facility] with Gifty Mireles LPN Hospital Information ED, Hospital or Fpc Facility Discharge? ED Patient has been contacted within 2 days of being seen in the ED Yes Diagnosis Gastritis Discharge Date 12/09/24 Discharged To: Home Setting Discharge Hospital [facility] Engagement Call Start Time 1444 Admission Date 12/09/24 Medications Discharge medications reviewed and reconciled from hospital? No [pt did not reconcile with business writer. Was sent home with no new medications] [...] had any fever. Call End Time 1348 documented in this encounter Plan of Treatment Upcoming Encounters Date Type Department Care Team (Late st Contact Info) Description 12/13/2024 9:40 AM EDT Office Visit [facility] [place] [address] Milton Duvall, DPM FACFAS 368 [facility] [place] [address] 12/16/2024 9:45 AM EDT Office Visit [facility] [place] [address] [place] [address] Emerald Sanchez MD [address] [facility] 110 [place] [address] 12/26/2024 1:20 PM EDT Office Visit [facility] [place] [facility] [address] [facility] 310 [place] [address] Jatin Cabrera MD [address] [address] documented as of this encounter Goals Goal Patient Goal Type Associated Problems Recent Progress Patient-Stated? Author Help patient manage antidepressant medication Care Plan Patient on antidepressant monitoring plan No Emerald Sanchez MD Baseline PHQ-9 Care Plan Baseline PHQ-9 No Emerald Sanchez MD documented as of this encounter Visit Diagnoses Diagnosis Gastritis, presence of bleeding unspecified, unspecified chronicity, unspecified gastritis type- Primary Mild intermittent asthma without complication (HCC) documented in this encounter Additional Health Concerns Active Problems Noted Date Diagnosed Date Patient on antidepressant monitoring plan 2023 Baseline PHQ-9 05/08/2023 Assessment Noted Time PHQ-9 Depression Total Score: 18 06/ 025 11:34 AM EDT documented as of this encounter Care Teams Scrap Sorter Relationship Specialty Start Date End Date Emerald Sanchez MD 112 [address] [place] [address] PCP - Medical [place] Commercial 10/22/18 04/23/99 Emerald Sanchez MD 112 [address] [facility] 110 [place] [address] PCP - General Family Medicine 08/30/22 documented as of this encounter
--- OUTSIDE RECORDS SUMMARY | 2024-12-12 11:27 | XMS_ITS | Encounter Summary ---
Author Organization [facility] Address [address] [place] [address] Care Team Providers Care Hog Sawyer Name Role Phone Emerald Sanchez MD Unavailable Emerald Sanchez MD Primary Care Provider [phone] Encounter Details Date Type Department Care Team (Late st Contact Info) Description 07/26/2024 Abstract [facility] [address] [place] [address] Gifty Mireles LPN 112 [facility] 110 [place] [address] Social History Tobacco Use Types Packs/Day Years [...] How often do you attend restorationism or zoroastrian serv ices? Never 05/09/2024 Do you belong [...] Recorded Patient Health Questionnaire-2 Score 0 07/04/2024 [facility] Occupat ional [facility] - Occupational Stress Questionnaire Answer Date [...] in a snf (including now)? No 04/18/2023 Housing Stability Vital Sign Answer Celso e Recorded In the last 12 months, was t here a time when you were not able to pay the mortgage or rent on time? No 05/09/2024 In the past 12 months, how m any times have you moved where you were living? 0 05/09/2024 At any time in the past 12 m [facility], were you homeless or living in a snf (including now)? No 05/09/2024 Comments No Sex [...] EDT Office Visit [facility] NMA POD [address] [place] [address] Milton Duvall, DPM FACFAS [address] [facility] [place] [address] 12/16/2024 9:45 AM EDT Office Visit [facility] [place] [facility] 112 [facility] 110 [place] [address] Emerald Sanchez MD [address] [facility] 110 [place] [address] 12/26/2024 1:20 PM EDT Office Visit [facility] [address] [facility] 310 [place] [address] Jatin Cabrera MD 9688 [facility] [address] [id number] documented as of this encounter Goals Goal [...] documented as of this encounter Care Teams Hog Sawyer Relationship Specialty Start Date End Date Emerald Sanchez MD [address] [facility] 110 [place] [address] PCP - Medical [place] Commercial 10/22/18 04/23/99 Emerald Sanchez MD [address] [facility] 110 [place] [address] PCP - General Family Medicine 08/30/22 documented as of this encounter
--- OUTSIDE RECORDS SUMMARY | 2024-12-12 11:27 | XMS_ITS | Encounter Summary ---
Author Organization [facility] Address [address] [facility] [place] [address] Care Team Providers Care Motor Equipment Sergeant Name Role Phone Emerald Sanchez MD Unavailable Emerald Sanchez MD Primary Care Provider [phone] Encounter Details Date Type Department Care Team (Late st Contact Info) Description 12/27/2022 Orders Only [facility] [place] [facility] [address] [facility] 110 [place] [address] A, Unknown Practice [address] [place], [place] [address] Social History Tobacco Use Types Packs/Day Years [...] EDT Office Visit [facility] N[facility] POD 368 [place] [address] Milton Duvall, DPM FACFAS [address] [facility] [place] [address] 12/16/2024 9:45 AM EDT Office Visit [facility] [place] [facility] [address] [place] 110 [place] [address] Emerald Sanchez MD [address] [place] 110 [place] [address] 12/26/2024 1:20 PM EDT Office Visit [facility] [place] [facility] [address] [facility] 310 [place] [address] Jatin Cabrera MD 5308 [facility] [address] [id number] documented as of this encounter Procedures Procedure [...] on filedocumented in this encounter Care Teams Motor Equipment Sergeant Relationship Specialty Start Date End Date Emerald Sanchez MD 112 [facility] 110 [place] [address] PCP - Medical [place] Commercial 10/22/18 04/23/99 Emerald Sanchez MD 112 [facility] 110 [place] [address] PCP - General Family Medicine 08/30/22 documented as of this encounter
--- OUTSIDE RECORDS SUMMARY | 2024-12-12 11:27 | XMS_ITS | Encounter Summary ---
Author Organization [facility] Address [address] [facility] [place] [address] Care Team Providers Care Roll Up Operator Name Role Phone Emerald Sanchez MD Unavailable Emerald Sanchez MD Primary Care Provider [phone] Encounter Details Date Type Department Care Team (Late st Contact Info) Description 08/19/2024 Abstract [facility] [place] [facility] [address] [facility] 110 [place] [address] Emerald Sanchez MD [address] [place] 110 [place] [address] Social History Tobacco Use Types Packs/Day Years [...] week 05/09/2024 How often do you attend amish or hinduism serv ices? Never 05/09/2024 Do you belong [...] Recorded Patient Health Questionnaire-2 Score 0 08/01/2024 [facility] Occupat ional Health [...] any time in the past 12 m [facility], were you homeless or living in [...] EDT Office Visit [facility] N[facility] POD [address] [facility] [place] [address] Milton Duvall, DPM FACFAS 368 [facility] [place] [address] 12/16/2024 9:45 AM EDT Office Visit [facility] [place] [facility] 112 [facility] 110 [place] [address] Emerald Sanchez MD [address] [facility] 110 [place] [address] 12/26/2024 1:20 PM EDT Office Visit [facility] [place] [facility] [address] [facility] 310 [place] [address] Jatin Cabrera MD 5759 [facility] [address] [address] documented as of this encounter Goals Goal [...] documented as of this encounter Care Teams Roll Up Operator Relationship Specialty Start Date End Date Emerald Sanchez MD [address] [facility] 110 [place] [address] PCP - Medical [place] Commercial 10/22/18 04/23/99 Emerald Sanchez MD [address] [facility] 110 [place] [address] PCP - General Family Medicine 08/30/22 documented as of this encounter
--- OUTSIDE RECORDS SUMMARY | 2024-12-12 11:27 | XMS_ITS | Encounter Summary ---
Author Organization [facility] Address [address] [facility] [place] [address] Care Team Providers Care Freight Elevator Erector Name Role Phone Emerald Sanchez MD Unavailable Emerald Sanchez MD Primary Care Provider [phone] Encounter Details Date Type Department Care Team (Late st Contact Info) Description 02/06/2023 Abstract [facility] [place] [facility] [address] [facility] 110 [place] [address] Sandy Hammond, PA [address] [facility] 110 [place] [address] Social History Tobacco Use Types Packs/Day Years [...] EDT Office Visit [facility] NMA POD 368 [place] [address] Milton Duvall, DPM FACFAS 368 [facility] [place] [address] 12/16/2024 9:45 AM EDT Office Visit [facility] [place] [address] [facility] 110 [place] [address] Emerald Sanchez MD [address] [facility] 110 [place] [address] 12/26/2024 1:20 PM EDT Office Visit [facility] [place] [facility] [address] [facility] 310 [place] [address] Jatin Cabrera MD [address] [facility] [address] [id number] documented as of this encounter Visit Diagnoses Not on filedocumented in this encounter Care Teams Freight Elevator Erector Relationship Specialty Start Date End Date Emerald Sanchez MD [address] [facility] 110 [place] [address] PCP - Medical [place] Commercial 10/22/18 04/23/99 Emerald Sanchez MD [address] [facility] 110 [place] [address] PCP - General Family Medicine 08/30/22 documented as of this encounter
--- OUTSIDE RECORDS SUMMARY | 2024-12-12 11:27 | XMS_ITS | Encounter Summary ---
Author Organization [facility] Address [address] [place] [address] Care Team Providers Care Plant Technician/Control Room Operator Name Role Phone Emerald Sanchez MD Primary Care Provider [phone] Deena Osorio NATIONAL SALES CONSULTANT Unavailable [phone] Darwin Starr DO Unavailable [phone] Source Comments In the event this information is protected by the Federal Confidentiality of Alcohol and Drug AbusePatient Records regulations: The Federal rules restrict any use of the information to criminally investigate or prosecute any alcohol or drug abuse patient.[facility] Encounter Details Date Type Department Care Team (Late st Contact Info) Description 06/29/2022 GI Preprocedure Call Ambulatory Surgery [address] [place] [address] [place] [address] [place] [address] Social History Tobacco Use Types Packs/Day Years [...] N ot on file 05/27/2022 Data from: https://www.neighborhoodatlas.medicine.[facility].edu/. Last address used for calculation [address] [...] EDT Office Visit Gynecology [address] [place] [address] Emma Ying APRN.TRAINER [address] [place] [address] Other specified dyspareunia documented as of this encounter Visit Diagnoses Not on filedocumented in this encounter Additional Health Concerns Infection Onset Date Last Indicated Resolved Time C. difficile 05/22/2024 05/22/2024 06/21/2024 8:51 PM EST documented as of this encounter Care Teams Plant Technician/Control Room Operator Relationship Specialty Start Date End Date Emerald Sanchez MD [address] [facility] 110 [place] [address] PCP - General Family Medicine 03/27/19 Deena Osorio, NATIONAL SALES CONSULTANT [address] [place] 110 [place] [address] Referring Family Medicine 04/03/24 Darwin Starr DO [address] [place] [address] Dr Carlyle MancusoSTICK[place], [place] [address] Referring Leach Cell Operator 07/02/24 documented as of this encounter
--- OUTSIDE RECORDS SUMMARY | 2024-12-12 11:27 | XMS_ITS | Encounter Summary ---
Author Organization [facility] Address [address] [place] [address] Care Team Providers Care Meat Products Demonstrator Name Role Phone Emerald Sanchez MD Primary Care Provider [phone] Deena Osorio BOARD CERTIFIED ORTHODONTIST Unavailable [phone] Darwin Starr DO Unavailable [phone] Source Comments In the event this information is protected by the Federal Confidentiality of Alcohol and Drug AbusePatient Records regulations: The Federal rules restrict any use of the information to criminally investigate or prosecute any alcohol or drug abuse patient.[facility] Reason for Visit * Reason Comments Abstract CPP - NPAF abstract Encounter Details Date Type Department Care Team (Late st Contact Info) Description 10/07/2024 Abstract Gynecology [address] [place] [address] Emma Ying APRN.AGRICULTURAL LOAN OFFICER 9500 [facility] [place], [place] [id number] Abstract (CPP - NPAF abstract/) Social History [...] 4 10/17/2022 Data from: https://www.neighborhoodatlas.medicine.[facility]/. Last address used [...] EDT Office Visit Gynecology [address] [place] [address] Emma Ying APRN.AGRICULTURAL LOAN OFFICER [address] [place], [place] [id number] Other specified dyspareunia documented as of this encounter Goals Goal Patient Goal Type Associated Problems Recent Progress Patient-Stated? Author Blood Pressure < 140/90 Blood Pressure 112/76( 025 1:00 PM EDT) No Solo Mora MD documented as of this encounter Visit Diagnoses Not on filedocumented in this encounter Care Teams Meat Products Demonstrator Relationship Specialty Start Date End Date Emerald Sanchez MD [address] [facility] 110 [place] [address] PCP - General Family Medicine 03/27/19 Deena Osorio APRN [address] [place] 110 [place] [address] Referring Family Medicine 04/03/24 Darwin Starr DO [address] [facility] [place] [address] Referring Actuarial Internship 07/02/24 documented as of this encounter
--- OUTSIDE RECORDS SUMMARY | 2024-12-12 11:27 | XMS_ITS | Encounter Summary ---
Author Organization [facility] Healthcare Address [address] [place] [address] Care Team Providers Care Lease Purchase Truck Driver Name Role Phone Emerald Sanchez MD Unavailable Emerald Sanchez MD Primary Care Provider Encounter Details Date Type Department Care Team (Late st Contact Info) Description 12/10/2024 Abstract [facility] POP[facility]ATION [facility] [address] [place] [phone] Gifty Mireles LPN 112 [facility] 110 [place] [address] Social History Tobacco Use Types Packs/Day Years [...] How often do you attend pentecostalism or orthodox serv ices? Never 05/09/2024 Do you belong [...] Recorded Patient Health Questionnaire-2 Score 4 10/08/2024 [facility] - Occupational Stress Questionnaire Answer [...] in the past 12 m [facility], were you homeless or living in a [...] EDT Office Visit [facility] 368 [facility] [place] [address] Milton Duvall, DPM FACFAS 368 [facility] [place] [address] 12/16/2024 9:45 AM EDT Office Visit [facility] [place] [facility] 112 [facility] 110 [place] [address] Emerald Sanchez MD 112 [facility] 110 [place] [address] 12/26/2024 1:20 PM EDT Office Visit [facility] [address] [facility] 310 [place] [address] Jatin Cabrera MD 7294 [facility] [address] [phone] documented as of this encounter Goals Goal [...] documented as of this encounter Care Teams Lease Purchase Truck Driver Relationship Specialty Start Date End Date Emerald Sanchez MD 112 [facility] 110 [place] [address] PCP - Medical [place] Commercial 10/22/18 04/23/99 Emerald Sanchez MD 112 [facility] 110 [place] [address] PCP - General Family Medicine 08/30/22 documented as of this encounter
--- OUTSIDE RECORDS SUMMARY | 2024-12-12 11:27 | XMS_ITS | Encounter Summary ---
Author Organization [facility] Address [address] [facility] [place] [address] Care Team Providers Care Construction Representative Name Role Phone Emerald Sanchez MD Unavailable Emerald Sanchez MD Primary Care Provider [phone] Encounter Details Date Type Department Care Team (Late st Contact Info) Description 09/02/2024 Abstract [facility] [place] [facility] [address] [facility] 110 [place] [address] Emerald Sanchez MD [address] [place] 110 [place] [address] Social History Tobacco Use Types Packs/Day Years [...] week 05/09/2024 How often do you attend buddhism or nondenominational serv ices? Never 05/09/2024 Do you belong [...] Recorded Patient Health Questionnaire-2 Score 0 09/02/2024 [facility] of Occupat ional Health - Occupational [...] any time in the past 12 m [facility], were you homeless or living in a [...] Office Visit [facility] N[facility] POD [address] [place] [address] Milton Duvall, DPM FACFAS 368 [facility] [place] [address] 12/16/2024 9:45 AM EDT Office Visit [facility] [address] [facility] 110 [place] [address] Emerald Sanchez MD [address] [facility] 110 [place], [place] [address] 12/26/2024 1:20 PM EDT Office Visit [facility] [place] [facility] [address] [facility] 310 [place] [address] Jatin Cabrera MD 2593 [facility] [address] [id number] documented as of this encounter Goals Goal [...] documented as of this encounter Care Teams Construction Representative Relationship Specialty Start Date End Date Emerald Sanchez MD [address] [place] 110 [place] [address] PCP - Medical [place] Commercial 10/22/18 04/23/99 Emerald Sanchez MD [address] [place] 110 [place] [address] PCP - General Family Medicine 08/30/22 documented as of this encounter
--- OUTSIDE RECORDS SUMMARY | 2024-12-12 11:27 | XMS_ITS | Encounter Summary ---
Author Organization [facility] Address [address] [facility] [place] [address] Care Team Providers Care Job Forwarder Name Role Phone Emerald Sanchez MD Unavailable Emerald Sanchez MD Primary Care Provider [phone] Encounter Details Date Type Department Care Team (Late Contact Info) Description 02/14/2023 Abstract [facility] [place] [facility] [address] [facility] 110 [place] [address] Emerald Sanchez MD [address] [facility] 110 [place] [address] Social History Tobacco Use Types Packs/Day Years [...] EDT Office Visit [facility] 368 [facility] [place] [address] Milton Duvall, DPM FACFAS 368 [facility] [place] [address] 12/16/2024 9:45 AM EDT Office Visit [facility] [place] [address] [facility] 110 [place] [address] Emerald Sanchez MD 112 [facility] 110 [place] [address] 12/26/2024 1:20 PM EDT Office Visit [facility] [place] [facility] [address] [facility] 310 [place] [address] Jatin Cabrera MD [address] [phone] documented as of this encounter Visit Diagnoses Not on filedocumented in this encounter Care Teams Job Forwarder Relationship Specialty Start Date End Date Emerald Sanchez MD 112 [facility] 110 [place] [address] PCP - Medical [place] Commercial 10/22/18 04/23/99 Emerald Sanchez MD 112 [facility] 110 [place] [address] PCP - General Family Medicine 08/30/22 documented as of this encounter
--- OUTSIDE RECORDS SUMMARY | 2024-12-12 11:27 | XMS_ITS | Encounter Summary ---
Author Organization [facility] Address [address] [place] [address] Care Team Providers Care Mica Spreader Name Role Phone Emerald Sanchez MD Unavailable Emerald Sanchez MD Primary Care Provider [phone] Encounter Details Date Type Department Care Team (Latest Contact Info) Description 12/11/2024 Travel Social History Tobacco Use Types Packs/Day [...] week 05/09/2024 How often do you attend temple or sabianist serv ices? Never 05/09/2024 Do [...] Recorded Patient Health Questionnaire-2 Score 4 10/08/2024 [facility] Occupat ional Health - [...] place to sleep or slept in a half-way (including now)? No 04/18/2023 Housing Stability Vital Sign Answer Celso e Recorded In the last 12 months, was t here a time when you were not able to pay the mortgage or rent on time? No 05/09/2024 In the past 12 months, how m any times have you moved where you were living? 0 05/09/2024 At any time in the past 12 m [facility], were you homeless or living in a half-way (including now)? No 05/09/2024 Comments No Sex [...] EDT Office Visit [facility] N[facility] POD 368 [place] [address] Milton Duvall, DPM FACFAS 368 [place] [address] 12/16/2024 9:45 AM EDT Office Visit [facility] [place] [facility] [address] [place] 110 [place] [address] Emerald Sanchez MD [address] [facility] 110 [place], [place] [address] 12/26/2024 1:20 PM EDT Office Visit [facility] [place] [facility] [address] [place] 310 [place] [address] Jatin Cabrera MD 7155 [facility] [address] [address] documented as of this encounter [...] documented as of this encounter Care Teams Mica Spreader Relationship Specialty Start Date End Date Emerald Sanchez MD 112 [place] [facility] 110 [place] [address] PCP - Medical [place] Commercial 10/22/18 04/23/99 Emerald Sanchez MD 112 [place] [facility] 110 [place] [address] PCP - General Family Medicine 08/30/22 documented as of this encounter
--- OUTSIDE RECORDS SUMMARY | 2024-12-12 11:27 | XMS_ITS | Encounter Summary ---
Author Organization [facility] Address [address] [facility] [place] [address] Care Team Providers Care Mixologist Name Role Phone Emerald Sanchez MD Unavailable Emerald Sanchez MD Primary Care Provider [phone] Encounter Details Date Type Department Care Team (Late st Contact Info) Description 03/29/2024 Abstract [facility] [place] [facility] [address] [facility] 110 [place] [address] Emerald Sanchez MD [address] [place] 110 [place] [address] Social History Tobacco Use Types Packs/Day Years [...] often do you attend chur ch or sabianist services? Never 04/18/2023 Do you belong to any clubs o r organizations such as faith groups, unions, fraternal or athletic groups, or [...] heating? Not hard at all 04/18/2023 [facility] of Occupat ional Health - [...] Visit [facility] NMA POD 368 [place] [address] Milton Duvall, DPM FACFAS 368 [place] [address] 12/16/2024 9:45 AM EDT Office Visit [facility] [place] [facility] [address] [facility] 110 [place] [address] Emerald Sanchez MD [address] [facility] 110 [place] [address] 12/26/2024 1:20 PM EDT Office Visit [facility] [place] [facility] [address] [facility] 310 [place] [address] Jatin Cabrera MD [address] [facility] [address] [place] [phone] documented as of this encounter Goals Goal [...] documented as of this encounter Care Teams Mixologist Relationship Specialty Start Date End Date Emerald Sanhcez MD 112 [facility] 110 [place] [address] PCP - Medical [place] Commercial 10/22/18 04/23/99 Emerald Sanchez MD 112 [facility] 110 [place] [address] PCP - General Family Medicine 08/30/22 documented as of this encounter
--- OUTSIDE RECORDS SUMMARY | 2024-12-12 11:27 | XMS_ITS | Encounter Summary ---
Author Organization [facility] Address [address] [facility] [place] [address] Care Team Providers Care Airplane Refueler Name Role Phone Emerald Hagen MD Unavailable Emerald Hagen MD Primary Care Provider [phone] Encounter Details Date Type Department Care Team [...] Office Visit [facility] 368 [facility] [place] [address] Milton Duvall, DPM FACFAS 368 [facility] [place] [address] 12/16/2024 9:45 AM EDT Office Visit [facility] [place] [facility] 112 [facility] 110 [place] [address] Emerald Hagen MD [address] [facility] 110 [place] [address] 12/26/2024 1:20 PM EDT Office Visit [facility] [place] [facility] [address] [place] 310 [place] [address] Jatin Cabrera MD 5312 [facility] [address] [address] documented as of this encounter Procedures Procedure Name Priority Date/Time Associated Diagnosis Comments ECG 12-LEAD 02/06/2023 11:33 AM EDT documented in this encounter Results * ECG 12-LEAD (02/06/2023 11:33 AM EDT) Anatomical Region Laterality Modality Other 02/06/2023 11:3 3 AM EDT Narrative 02/06/2023 11:33 AM EDT [address] [address] Electrocardiograph Report Signed Patient: ORION BARNETT MR#: [id number] : 1990 Acct:[id number] Age/Sex: 32 / F ADM Date: Loc: SURGOUT Attending Dr: Darwin Starr D.O. Ordering Physician: Darwin Starr D.O. Date of Service: 02/06/23 Procedure(s): ECG 12 lead Accession Number(s): [id number] cc: The [facility] Test Date: 2023-02-06 Pat Name: ORION BARNETT Department: Room: - Gender: Female Contractor Buyer: : 1990 Requested By: EMERALD HAGEN Order Number: [id number] Kodi MD: KEI POWELL Measurements Intervals [place] Rate: 70 P: 78 GA: 159 QRS: 72 QRSD: 88 T: 61 QT: 422 QTc: 458 Interpretive Statements SINUS RHYTHM WITH SINUS ARRHYTHMIA No previous ECG available for comparison Electronically Signed On 02-06-2023 20:04:15 EDT by KEI POWELL Dictated By: Kei Powell D.O. Signed By: 02/06/232003 DD/ 32 TD/TT: Entry Level Software Engineer: Procedure Note Radiology, Radiologist, - 02/06/[address] [address] Electrocardiograph Report Signed Patient: ORION BARNETT AMR#: [id number] : 1990Acct:[id number] Age/Sex: 32 / FADM Date: Loc: SURGOUT Attending Dr: Darwin Starr D.O. Ordering Physician: Darwin Starr D.O. Date of Service: 02/06/23 Procedure(s): ECG 12 lead Accession Number(s): [id number] cc: 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 Signed By:02/06/232003 DD/ 32 TD/TT: Entry Level Software Engineer: Generic External Data Provider [facility] Final Result documented in this encounter Visit Diagnoses Not on filedocumented in this encounter Care Teams Airplane Refueler Relationship Specialty Start Date End Date Emerald Hagen MD [address] [facility] 110 [place] [address] PCP - Medical [place] Commercial 10/22/18 04/23/99 Emerald Hagen MD [address] [place] 110 [place] [address] PCP - General Family Medicine 08/30/22 documented as of this encounter
--- OUTSIDE RECORDS SUMMARY | 2024-12-12 11:27 | XMS_ITS | Encounter Summary ---
Author Organization [facility] Address [address] [facility] [place] [address] Care Team Providers Care Confidential Investigator Name Role Phone Emerald Sanchez MD Unavailable Emerald Sanchez MD Primary Care Provider [phone] Encounter Details Date Type Department Care Team (Late Contact Info) Description 02/07/2023 Abstract [facility] [place] [facility] 112 [address] [facility] 110 [place] [address] Emerald Sanchez MD [address] [facility] 110 [place] [address] Social History Tobacco Use Types Packs/Day Years [...] Office Visit [facility] POD 368 [facility] [place] [address] Milton Duvall, DPM FACFAS 368 [facility] [place] [address] 12/16/2024 9:45 AM EDT Office Visit N[facility] [place] [address] [facility] 110 [place] [address] Emerald Sanchez MD 112 [place] [facility] 110 [place] [address] 12/26/2024 1:20 PM EDT Office Visit [facility] [place] [facility] [address] [facility] 310 [place] [address] Jatin Cabrera MD [address] [phone] documented as of this encounter Visit Diagnoses Not on filedocumented in this encounter Care Teams Confidential Investigator Relationship Specialty Start Date End Date Emerald Sanchez MD 112 [place] [facility] 110 [place] [address] PCP - Medical [place] Commercial 10/22/18 04/23/99 Emerald Sanchez MD [address] [place] [facility] 110 [place] [address] PCP - General Family Medicine 08/30/22 documented as of this encounter
--- OUTSIDE RECORDS SUMMARY | 2024-12-12 11:27 | XMS_ITS | Encounter Summary ---
Author Organization [facility] Address [address] [facility] [place] [address] Care Team Providers Care Proposal Review Analyst Name Role Phone Emerald Sanchez MD Unavailable Emerald Sanchez MD Primary Care Provider Encounter Details Date Type Department Care Team (Late st Contact Info) Description 04/03/2024 Abstract [facility] [place] [facility] [address] [facility] 110 [place] [address] Emerald Sanchez MD [address] [place] 110 [place] [address] Social History Tobacco Use Types Packs/Day Years [...] often do you attend chur ch or anabaptism services? Never 04/18/2023 Do you belong to [...] and heating? Not hard at all 04/18/2023 [facility] of Occupat ional Health - Occupational [...] EDT Office Visit [facility] NMA POD 368 [place] [address] Milton Duvall, DPM FACFAS 368 [place] [address] 12/16/2024 9:45 AM EDT Office Visit [facility] [place] [facility] [address] [facility] 110 [place] [address] Emerald Sanchez MD [address] [facility] 110 [place] [address] 12/26/2024 1:20 PM EDT Office Visit [facility] [place] [facility] [address] [facility] 310 [place] [address] Jatin Cabrera MD [address] [facility] [address] [place] [phone] documented as of this encounter Goals Goal [...] documented as of this encounter Care Teams Proposal Review Analyst Relationship Specialty Start Date End Date Emerald Sanchez MD 112 [facility] 110 [place] [address] PCP - Medical [place] Commercial 10/22/18 04/23/99 Emerald Sanchez MD 112 [facility] 110 [place] [address] PCP - General Family Medicine 08/30/22 documented as of this encounter
--- OUTSIDE RECORDS SUMMARY | 2024-12-12 11:27 | XMS_ITS | Encounter Summary ---
Author Organization [facility] Address [address] [place] [address] Care Team Providers Care Multicraft Operator Name Role Phone Emerald Sanchez MD Unavailable Emerald Sanchez MD Primary Care Provider [phone] Encounter Details Date Type Department Care Team (Late st Contact Info) Description 12/28/2022 Abstract [facility] [place] [facility] [address] [place] 100 [place] [address] Adriana Galaviz LPN 240 [facility] [place] [address] [place] [address] Social History Tobacco Use Types Packs/Day Years [...] EDT Office Visit [facility] N[facility] POD 368 [place] [address] Milton Duvall, DPM FACFAS 368 [facility] [place] [address] 12/16/2024 9:45 AM EDT Office Visit [facility] [place] [facility] 112 [facility] [address] [place] [address] Emerald Sanchez MD 112 [facility] 110 [place] [address] 12/26/2024 1:20 PM EDT Office Visit [facility] [place] [facility] [address] [facility] 310 [place] [address] Jatin Cabrera MD [address] [phone] documented as of this encounter Visit Diagnoses Not on filedocumented in this encounter Care Teams Multicraft Operator Relationship Specialty Start Date End Date Emerald Sanchez MD 112 [facility] 110 [place] [address] PCP - Medical [place] Commercial 10/22/18 04/23/99 Emerald Sanchez MD 112 [facility] 110 [place] [address] PCP - General Family Medicine 08/30/22 documented as of this encounter
--- OUTSIDE RECORDS SUMMARY | 2024-12-12 11:27 | XMS_ITS | Encounter Summary ---
Author Organization [facility] Address [address] [facility] [place] [address] Care Team Providers Care Mechanical Manager Name Role Phone Emerald Sanchez MD Unavailable Emerald Sanchez MD Primary Care Provider [phone] Encounter Details Date Type Department Care Team (Late st Contact Info) Description 04/03/2024 Abstract [facility] [place] [facility] [address] [facility] 110 [place] [address] Emerald Sanchez MD [address] [place] 110 [place] [address] Social History Tobacco Use Types Packs/Day Years [...] often do you attend chur ch or orthodox services? Never 04/18/2023 Do you belong [...] EDT Office Visit [facility] N[facility] POD 368 [place] [address] Milton Duvall, DPM FACFAS 368 [place] [address] 12/16/2024 9:45 AM EDT Office Visit [facility] [place] [facility] [address] [facility] 110 [place] [address] Emerald Sanchez MD [address] [facility] 110 [place] [address] 12/26/2024 1:20 PM EDT Office Visit [facility] [place] [facility] [address] [facility] 310 [place] [address] Jatin Cabrera MD [address] [facility] [address] [place] [phone] documented as of this encounter Goals Goal [...] as of this encounter Care Teams Mechanical Manager Relationship Specialty Start Date End Date Emerald Sanchez MD 112 [facility] 110 [place] [address] PCP - Medical [place] Commercial 10/22/18 04/23/99 Emerald Sanchez MD 112 [facility] 110 [place] [address] PCP - General Family Medicine 08/30/22 documented as of this encounter
--- OUTSIDE RECORDS SUMMARY | 2024-12-12 11:27 | XMS_ITS | Encounter Summary ---
Author Organization [facility] Address [address] [facility] [place] [address] Care Team Providers Care Otr Company Driver Name Role Phone Emerald Sanchez MD Unavailable Emerald Sanchez MD Primary Care Provider [phone] Encounter Details Date Type Department Care Team (Latest Contact Info) Description 12/12/2024 Travel Social History Tobacco Use Types Packs/Day [...] often do you attend latter day or methodist serv ices? Never 05/09/2024 Do you belong [...] Recorded Patient Health Questionnaire-2 Score 4 10/08/2024 [facility] of Occupat ional Health - Occupational [...] place to sleep or slept in a skilled nursing (including now)? No 04/18/2023 Housing Stability Vital [...] were you homeless or living in a skilled nursing (including now)? No 05/09/2024 Comments No Sex [...] EDT Office Visit [facility] N[facility] POD 368 [place] [address] Milton Duvall, DPM FACFAS 368 [facility] [place] [address] 12/16/2024 9:45 AM EDT Office Visit [facility] [place] [facility] [address] [place] 110 [place] [address] Emerald Sanchez MD [address] [facility] 110 [place], [place] [address] 12/26/2024 1:20 PM EDT Office Visit [facility] [place] [facility] [address] [place] [address] [place] [address] Jatin Cabrera MD 0969 [facility] [address] [address] documented as of this encounter [...] documented as of this encounter Care Teams Otr Company Driver Relationship Specialty Start Date End Date Emerlad Sanchez MD [address] [facility] 110 [place] [address] PCP - Medical [place] Commercial 10/22/18 04/23/99 Emerald Sanchez MD [address] [facility] 110 [place] [address] PCP - General Family Medicine 08/30/22 documented as of this encounter
--- OUTSIDE RECORDS SUMMARY | 2024-12-12 11:27 | XMS_ITS | Encounter Summary ---
Author Organization [facility] Address [address] [facility] [place] [address] Care Team Providers Care Student Loan Counselor Name Role Phone Emerald Sacnhez MD Unavailable Emerald Sanchez MD Primary Care Provider [phone] Encounter Details Date Type Department Care Team (Late st Contact Info) Description 04/11/2023 Orders Only [facility] [address] [facility] 110 [place] [address] A, Unknown Practice [address] [place], [place] [phone] Social History Tobacco Use Types Packs/Day Years [...] EDT Office Visit [facility] [address] [place] [address] Milton Duvall, DPM FACFAS 368 [facility] [place] [address] 12/16/2024 9:45 AM EDT Office Visit [facility] [place] [facility] [address] [place] 110 [place] [address] Emerald Sanchez MD [address] [place] 110 [place] [address] 12/26/2024 1:20 PM EDT Office Visit [facility] [place] [facility] [address] [facility] 310 [place] [address] Jatin Cabrera MD 0181 [facility] [address] [phone] documented as of this encounter Procedures Procedure Name Priority Date/Time Associated Diagnosis Comments SCANNED LABS Routine 04/11/2023 1:27 PM EST documented in this encounter Results * SCANNED LABS (04/11/2023 1:27 PM EST) us Unknown Practice A LAB CHG PERFORMABLES Final Re sult documented in this encounter Visit Diagnoses Not on filedocumented in this encounter Care Teams Student Loan Counselor Relationship Specialty Start Date End Date Emerald Sanchez MD 112 [facility] 110 [place] [address] PCP - Medical [place] Commercial 10/22/18 04/23/99 Emerald Sanchez MD 112 [facility] 110 [place] [address] PCP - General Family Medicine 08/30/22 documented as of this encounter
--- OUTSIDE RECORDS SUMMARY | 2024-12-12 11:27 | XMS_ITS | Encounter Summary ---
Author Organization [facility] Address [address] [facility] [place] [address] Care Team Providers Care Chemical Unit Operator Name Role Phone Emerald Snachez MD Unavailable Emerald Sanchez MD Primary Care Provider Encounter Details Date Type Department Care Team (Late st Contact Info) Description 02/08/2023 Orders Only [facility] [place] [facility] 112 [facility] 110 [place] [address] A, Unknown Practice [address] [place], [place] [phone] Social History Tobacco Use Types Packs/Day Years [...] EDT Office Visit [facility] N[facility] POD 368 [facility] [address] Milton Duvall, DPM FACFAS 368 [facility] [place] [address] 12/16/2024 9:45 AM EDT Office Visit [facility] [place] [facility] [address] [facility] 110 [place] [address] Emerald Sanchez MD [address] [facility] 110 [place] [address] 12/26/2024 1:20 PM EDT Office Visit [facility] [place] [facility] [address] [facility] 310 [place] [address] Jatin Cabrera MD 0781 Jose Alejandro [address] [address] documented as of this encounter Procedures Procedure Name Priority Date/Time Associated Diagnosis Comments SCANNED LABS Routine 02/08/2023 9:18 AM EDT documented in this encounter Results * SCANNED LABS (02/08/2023 9:18 AM EDT) us Unknown Practice A LAB CHG PERFORMABLES Final Re sult documented in this encounter Visit Diagnoses Not on filedocumented in this encounter Care Teams Chemical Unit Operator Relationship Specialty Start Date End Date Emerald Sanchez MD [address] [facility] 110 [place] [address] PCP - Medical [place] Commercial 10/22/18 04/23/99 Emerald Sanchez MD [address] [facility] 110 [place] [address] PCP - General Family Medicine 08/30/22 documented as of this encounter
--- OUTSIDE RECORDS SUMMARY | 2024-12-12 11:27 | XMS_ITS | Encounter Summary ---
Author Organization [facility] Address [address] [facility] [place] [address] Care Team Providers Care Tank Systems Maintainer Name Role Phone Emerald Sanchez MD Unavailable Emerald Sanchez MD Primary Care Provider [phone] Encounter Details Date Type Department Care Team (Late st Contact Info) Description 02/07/2023 Orders Only [facility] [place] [facility] 112 [facility] 110 [place] [address] A, Unknown Practice [address] [place], [place] [phone] Social History Tobacco Use Types Packs/Day Years [...] EDT Office Visit [facility] POD 368 [facility] [place] [address] Milton Duvall, DPM FACFAS 368 [facility] [place] [address] 12/16/2024 9:45 AM EDT Office Visit NOMRodney [facility] [address] [facility] 110 [place] [phone] Emerald Sanchez MD [address] [facility] 110 [place] [address] 12/26/2024 1:20 PM EDT Office Visit [facility] [place] [facility] [address] [facility] 310 [place] [address] Jatin Cabrera MD 8978 Jose Alejandro [address] [address] documented as of this encounter [...] on filedocumented in this encounter Care Teams Tank Systems Maintainer Relationship Specialty Start Date End Date Emerald Sanchez MD [address] [facility] 110 [place] [address] PCP - Medical [place] Commercial 10/22/18 04/23/99 Emerald Sanchez MD [address] [facility] 110 [place] [address] PCP - General Family Medicine 08/30/22 documented as of this encounter
--- OUTSIDE RECORDS SUMMARY | 2024-12-12 11:27 | XMS_ITS | Encounter Summary ---
Author Organization [facility] Address [address] [facility] [place] [address] Care Team Providers Care Flour Blender Name Role Phone Emerald Sanchez MD Unavailable Emerald Sanchez MD Primary Care Provider [phone] Encounter Details Date Type Department Care Team (Late st Contact Info) Description 03/29/2023 Abstract [facility] [address] [facility] 110 [place] [address] Emerald Sanchez MD [address] [facility] 110 [place], [place] [phone] Social History Tobacco Use Types Packs/Day Years [...] EDT Office Visit [facility] N[facility] POD 368 [place] [address] Milton Duvall, DPM FACFAS 368 [facility] [place], [place] [address] 12/16/2024 9:45 AM EDT Office Visit [facility] [address] [facility] 110 [place] [address] Emerald Sanchez MD [address] [facility] [facility] 110 [place] [address] 12/26/2024 1:20 PM EDT Office Visit [facility] [address] [facility] 310 [place] [address] Jatin Cabrera MD 9120 [facility] [address] [address] documented as of this encounter Visit Diagnoses Not on filedocumented in this encounter Care Teams Flour Blender Relationship Specialty Start Date End Date Emreald Sanchez MD 112 [facility] 110 [place] [address] PCP - Medical [place] Commercial 10/22/18 04/23/99 Emerald Sanchez MD [address] [facility] [facility] 110 [place] [address] PCP - General Family Medicine 08/30/22 documented as of this encounter
--- OUTSIDE RECORDS SUMMARY | 2024-12-12 11:27 | XMS_ITS | Encounter Summary ---
Author Organization [facility] Address [address] [facility] [place] [address] Care Team Providers Care Test Technician Name Role Phone Emerald Sanchez MD Unavailable Emerald Sanchez MD Primary Care Provider [phone] Encounter Details Date Type Department Care Team (Late Contact Info) Description 02/14/2023 Abstract [facility] [place] [facility] [address] [facility] 110 [place] [address] Emerald Sanchez MD [address] [facility] 110 [place] [address] Social History Tobacco Use Types Packs/Day Years [...] Visit [facility] N[facility] POD [address] [place] [address] Milton Duvall, DPM FACFAS 368 [facility] [place] [address] 12/16/2024 9:45 AM EDT Office Visit [facility] [place] [address] [facility] [facility] 110 [place] [address] Emerald Sanchez MD 112 [place] [facility] 110 [place] [address] 12/26/2024 1:20 PM EDT Office Visit [facility] [place] [facility] [address] [facility] 310 [place] [address] Jatin Cabrera MD [address] [phone] documented as of this encounter Visit Diagnoses Not on filedocumented in this encounter Care Teams Test Technician Relationship Specialty Start Date End Date Emerald Sanchez MD 112 [place] [facility] 110 [place] [address] PCP - Medical [place] Commercial 10/22/18 04/23/99 Emerald Sanchez MD 112 [place] [facility] 110 [place] [address] PCP - General Family Medicine 08/30/22 documented as of this encounter
--- OUTSIDE RECORDS SUMMARY | 2024-12-12 11:28 | XMS_ITS | Encounter Summary ---
Author Organization [facility] Address [address] [place] [address] Care Team Providers Care Car Repairer Pullman Name Role Phone Emerald Sanchez MD Primary Care Provider [phone] Deena Osorio [place] LAYER Unavailable [phone] Darwin Starr DO Unavailable [phone] Source Comments In the event this information is protected by the Federal Confidentiality of Alcohol and Drug AbusePatient Records regulations: The Federal rules restrict any use of the information to criminally investigate or prosecute any alcohol or drug abuse patient.[facility] Encounter Details Date Type Department Care Team (Late st Contact Info) Description 07/08/2024 Patient Msg Gastroenterology [address] [place] [address] Provider, Ccf Social History Tobacco Use Types [...] is lower risk 4 10/17/2022 Data from: https://www.neighborhoodatlas.medicine.[facility].edu/. Last address used for calculation [address] [...] EDT Office Visit Gynecology [address] [place] [address] Emma Ying APRN.CORK INSULATOR HELPER [address] [place] [address] Other specified dyspareunia documented as of this encounter Goals Goal Patient Goal Type Associated Problems Recent Progress Patient-Stated? Author Blood Pressure < 140/90 Blood Pressure 112/76( 025 1:00 PM EDT) No Solo Mora MD documented as of this encounter Visit Diagnoses Not on filedocumented in this encounter Care Teams Car Repairer Pullman Relationship Specialty Start Date End Date Emerald Sanchez MD [address] [facility] 110 [place] [address] PCP - General Family Medicine 03/27/19 Deena Osorio APRN [address] [place] 110 [place] [address] Referring Family Medicine 04/03/24 Darwin Starr DO [address] [facility] [place] [address] Referring Visual Training Aide 07/02/24 documented as of this encounter
--- OUTSIDE RECORDS SUMMARY | 2024-12-12 11:28 | XMS_ITS | Encounter Summary ---
Author Organization [facility] Address [address] [facility] [place] [address] Care Team Providers Care Clinical Secretary Name Role Phone Emerald Sanchez MD Unavailable Emerald Sanchez MD Primary Care Provider [phone] Encounter Details Date Type Department Care Team (Late st Contact Info) Description 12/06/2023 Abstract [facility] [place] [facility] [address] [facility] 110 [place] [address] Emerald Sanchez MD [address] [place] 110 [place] [address] Social History Tobacco Use Types Packs/Day Years [...] and heating? Not hard at all 04/18/2023 [facility] - [...] in a halfway (including now)? No 04/18/2023 Comments No Sex [...] EDT Office Visit [facility] NMA POD 368 [place] [address] Milton Duvall, DPM FACFAS 368 [place] [address] 12/16/2024 9:45 AM EDT Office Visit [facility] [place] [facility] [address] [facility] 110 [place] [address] Emerald Sanchez MD [address] [facility] 110 [place] [address] 12/26/2024 1:20 PM EDT Office Visit [facility] [place] [facility] [address] [facility] 310 [place] [address] Jatin Cabrera MD [address] [facility] [address] [place] [address] [place] [phone] documented as of this encounter Goals Goal [...] as of this encounter Care Teams Clinical Secretary Relationship Specialty Start Date End Date Emerald Sanchez MD 112 [facility] 110 [place] [address] PCP - Medical [place] Commercial 10/22/18 04/23/99 Emerald Sanchez MD 112 [facility] 110 [place] [address] PCP - General Family Medicine 08/30/22 documented as of this encounter
--- OUTSIDE RECORDS SUMMARY | 2024-12-12 11:28 | XMS_ITS | Encounter Summary ---
Author Organization [facility] Address [address] [facility] [place] [address] Care Team Providers Care Custom Car Builder Name Role Phone Emerald Hagen MD Unavailable Emerald Hagen MD Primary Care Provider [phone] Encounter Details Date Type Department Care Team [...] week 04/18/2023 How often do you attend [facility] or [facility] services? Never 04/18/2023 Do you belong to [...] EDT Office Visit [facility] NMA POD 368 [place] [address] Milton Duvall, DPM FACFAS 368 [place] [address] 12/16/2024 9:45 AM EDT Office Visit [facility] [address] [facility] 110 [place] [address] Emerald Hagen MD [address] [facility] 110 [place] [address] 12/26/2024 1:20 PM EDT Office Visit [facility] [place] [facility] [address] [facility] 310 [place] [address] Jatin Cabrera MD 5391 [facility] [address] [address] documented as of this encounter Goals Goal [...] AM EDT Narrative 11/20/2023 8:00 [place] [address] XRay Report Signed Patient: BELGICA BARNETT MR#: [id number] : 1990 Acct:[id number] Age/Sex: 33 / F ADM Date: 11/16/23 Loc: RAD Attending Dr: Madhuri Mishra M.D. Ordering Physician: Madhuri Mishra M.D. Date of Service: 11/16/23 Procedure(s): XR abdomen 1V Accession Number(s): [id number] cc: EMERALD HAGEN ; Madhuri Mishar M.D. [place] [address] Patient Name: BELGICA BARNETT MRN: [id number] date: 1990 Sex: F Assigned Patient Location: [facility] Current Patient Location: Accession/Order Number: [id number] Exam Date: 11/16/2023 16:15 Report Date: 11/20/2023 [...] Dictated By: Laurie Bruno M.D. Signed By: 11/20/23799 DD/ 6 TD/TT: Presiding Judge: Procedure Note Radiology, Radiologist, - 11/20/2023 [place] [address] XRay Report Signed Patient: BELGICA BARNETT AMR#: [id number] : 1990Acct:[id number] Age/Sex: 33 / FADM Date: 11/16/23 Loc: RAD Attending Dr: Madhuri Mishra M.D. Ordering Physician: Madhuri Mishra M.D. Date of Service: 11/16/23 Procedure(s): XR abdomen 1V Accession Number(s): [id number] cc: EMERALD HAGEN ; Madhuri Mishra M.D. The [place] [address] Patient Name: BELGICA BARNETT MRN: [facility]:[id number] date: 1990 Sex: F Assigned Patient Location: [facility] Current Patient Location: Accession/Order Number: [id number] Exam Date: 11/16/2023 16:15 Report Date: 11/20/2023 [...] 07:57 Dictated By: Laurie Bruno M.D. Signed By:11/20/23799 DD/ 6 TD/TT: Presiding Judge: Generic External Data Provider [facility] Final Result documented in this encounter Visit Diagnoses Not on filedocumented in this encounter Additional Health Concerns Active Problems Noted Date Diagnosed Date Patient on antidepressant monitoring plan 2023 Baseline PHQ-9 05/08/2023 documented as of this encounter Care Teams Custom Car Builder Relationship Specialty Start Date End Date Emerald Hagen MD 112 [facility] 110 [place] [address] PCP - Medical [place] Commercial 10/22/18 04/23/99 Emerald Hagen MD 112 [facility] 110 [place] [address] PCP - General Family Medicine 08/30/22 documented as of this encounter
--- OUTSIDE RECORDS SUMMARY | 2024-12-12 11:28 | XMS_ITS | Encounter Summary ---
Author Organization [facility] Address [address] [facility] [place] [address] Care Team Providers Care Regional Controller Name Role Phone Emerald Sanchez MD Unavailable Emerald Sanchez MD Primary Care Provider [phone] Encounter Details Date Type Department Care Team (Late st Contact Info) Description 01/15/2024 Abstract [facility] [place] [facility] [address] [facility] 110 [place] [address] Emerald Sanchez MD [address] [place] 110 [place] [address] Social History Tobacco Use Types Packs/Day Years [...] and heating? Not hard at all 04/18/2023 [facility] [...] a skilled nursing (including now)? No 04/18/2023 Comments No Sex [...] EDT Office Visit [facility] NMA POD 368 [place] [address] Milton Duvall, DPM FACFAS 368 [place] [address] 12/16/2024 9:45 AM EDT Office Visit [facility] [place] [facility] [address] [facility] 110 [place] [address] Emerald Sanchez MD [address] [facility] 110 [place] [address] 12/26/2024 1:20 PM EDT Office Visit [facility] [place] [facility] [address] [facility] 310 [place] [address] Jatin Cabrera MD [address] [facility] [address] [place] [address] [place] [phone] documented as of this encounter Goals Goal [...] documented as of this encounter Care Teams Regional Controller Relationship Specialty Start Date End Date Emerald Sanchez MD 112 [facility] 110 [place] [address] PCP - Medical [place] Commercial 10/22/18 04/23/99 Emerald Sanchez MD 112 [facility] 110 [place] [address] PCP - General Family Medicine 08/30/22 documented as of this encounter
--- OUTSIDE RECORDS SUMMARY | 2024-12-12 11:28 | XMS_ITS | Encounter Summary ---
Author Organization [facility] Address [address] [facility] [place] [address] Care Team Providers Care Tube Teller Name Role Phone Emerald Sanchez MD Unavailable Emerald Sanchez MD Primary Care Provider [phone] Encounter Details Date Type Department Care Team [...] EDT Office Visit [facility] N[facility] POD 368 [place] [address] Milton Duvall, DPM FACFAS 368 [facility] [place] [address] 12/16/2024 9:45 AM EDT Office Visit [facility] [place] [facility] [address] [place] 110 [place] [address] Emerald Sanchez MD [address] [place] 110 [place] [address] 12/26/2024 1:20 PM EDT Office Visit [facility] [address] [place] 310 [place] [address] Jatin Cabrera MD 5319 [facility] [place] [phone] documented as of this encounter Procedures Procedure Name Priority Date/Time Associated Diagnosis Comments NM GASTRIC EMPTYING SOLID 09/12/2022 2:44 PM EDT documented in this encounter Results * NM GASTRIC EMPTYING SOLID (09/12/2022 2:44 PM EDT) Anatomical Region Laterality Modality Other 09/12/2022 2:44 PM EDT Narrative 09/12/2022 3:07 PM EDT * * *Final Report* * * DATE OF EXAM: Sep 12 2022 2:44PM [facility] 0017 - [place] GASTRIC EMPTYING SOLID / [...] 4 HOURS IS CONSISTENT WITH SEVERE GASTROPARESIS. Pcb Designer: PSCB Transcribe Date/Time: Sep 12 2022 3:02P Dictated by : LUZ MARINA VÁZQUEZ MD This examination was interpreted and the report reviewed and electronically signed by: LUZ MARINA VÁZQUEZ MD on Sep 12 2022 3:05PM EST [id number]^[email or web address]^SI^ACN * * *Final Report* * * DATE OF EXAM: Sep 12 2022 2:44PM [facility] 0017 - [place] GASTRIC EMPTYING SOLID / [...] 4 HOURS IS CONSISTENT WITH SEVERE GASTROPARESIS. Pcb Designer[facility] Transcribe Date/Time: Sep 12 2022 3:02P Dictated by : LUZ MARINA VÁZQUEZ MD This examination was interpreted and the report reviewed and electronically signed by: LUZ MARINA VÁZQUEZ MD on Sep 12 2022 3:05PM [facility] [id number]^SI^ACN * * *Final Report* * * DATE OF EXAM: Sep 12 2022 2:44PM [facility] 0017 - [place] GASTRIC EMPTYING SOLID / [...] 4 HOURS IS CONSISTENT WITH SEVERE GASTROPARESIS. Pcb Designer: MINAL Transcribe Date/Time: Sep 12 2022 3:02P Dictated by : LUZ MARINA VÁZQUEZ MD This examination was interpreted and the report reviewed and electronically signed by: LUZ MARINA VÁZQUEZ MD on Sep 12 2022 3:05PM EST [id number]^AGFA_IDC^SI^ACN Procedure Note Radiology, Radiologist, - 09/26/2022 * * *Final Report* * * DATE OF EXAM: Sep 12 2022 2:44PM [facility] 0017 - [place] GASTRIC EMPTYING SOLID / [...] 4 HOURS IS CONSISTENT WITH SEVERE GASTROPARESIS. Pcb Designer: [facility] Transcribe Date/Time: Sep 12 2022 3:02P Dictated by : LUZ MARINA VÁZQUEZ MD This examination was interpreted and the report reviewed and electronically signed by: LUZ MARINA VÁZQUEZ MD on Sep 12 2022 3:05PM EST [id number]^[email or web address]^SI^ACN * * *Final Report* * * DATE OF EXAM: Sep 12 2022 2:44PM [facility] 0017 - [place] GASTRIC EMPTYING SOLID / [...] 4 HOURS IS CONSISTENT WITH SEVERE GASTROPARESIS. Pcb Designer: MINAL Transcribe Date/Time: Sep 12 2022 3:02P Dictated by : LUZ MARINA VÁZQUEZ MD This examination was interpreted and the report reviewed and electronically signed by: LUZ MARINA VÁZQUEZ MD on Sep 12 2022 3:05PM EST [id number]^[id number]^SI^ACN * * *Final Report* * * DATE OF EXAM: Sep 12 2022 2:44PM [facility] 0017 - [place] GASTRIC EMPTYING SOLID / [...] 4 HOURS IS CONSISTENT WITH SEVERE GASTROPARESIS. Pcb Designer: PSCB Transcribe Date/Time: Sep 12 2022 3:02P Dictated by : LUZ MARINA VÁZQUEZ MD This examination was interpreted and the report reviewed and electronically signed by: LUZ MARINA VÁZQUEZ MD on Sep 12 2022 3:05PM EST [id number]^AGFA_IDC^SI^ACN Emerald Sanchez MD [facility] Final Result documented in this encounter Visit Diagnoses Not on filedocumented in this encounter Care Teams Tube Teller Relationship Specialty Start Date End Date Emerald Sanchez MD [address] [address] PCP - Medical [place] Commercial 10/22/18 04/23/99 Emerald Sanchez MD 112 [facility] 110 [place] [address] PCP - General Family Medicine 08/30/22 documented as of this encounter
--- OUTSIDE RECORDS SUMMARY | 2024-12-12 11:28 | XMS_ITS | Encounter Summary ---
Author Organization [facility] Address [address] [place] [address] Care Team Providers Care Master Glazier Name Role Phone Emerald Sanchez MD Primary Care Provider [phone] Deena Osorio APRN Unavailable [phone] Darwin Starr DO Unavailable [phone] Source Comments In the event this information is protected by the Federal Confidentiality of Alcohol and Drug AbusePatient Records regulations: The Federal rules restrict any use of the information to criminally investigate or prosecute any alcohol or drug abuse patient.[facility] Encounter Details Date Type Department Care Team (Late st Contact Info) Description 04/19/2024 Patient Msg Cardiology [address] [place], [place] [id number] Provider, Ccf Heart monitor results Social History [...] is lower risk 4 10/17/2022 Data from: https://www.neighborhoodatlas.medicine.[facility]/. Last address used for calculation [...] Office Visit Gynecology [address] [place] [address] Emma Ying, ENAMEL MACHINE OPERATOR.CLINICAL SERVICES PROFESSIONAL [address] [place] [address] Other specified dyspareunia documented as of this [...] documented as of this encounter Care Teams Master Glazier Relationship Specialty Start Date End Date Emerald Sanchez MD [address] [facility] 110 [place] [address] PCP - General Family Medicine 03/27/19 Deena Osorio, ENAMEL MACHINE OPERATOR [address] [place] 110 [place] [address] Referring Family Medicine 04/03/24 Darwin Starr DO [address] [facility] [address] [place]le [place], [place] [address] Referring Playground Official 07/02/24 documented as of this encounter
--- OUTSIDE RECORDS SUMMARY | 2024-12-12 11:28 | XMS_ITS | Encounter Summary ---
Author Organization [facility] Address [address] [place] [address] Care Team Providers Care Estate Planning Director Name Role Phone Emerald Sanchez MD Unavailable Emerald Sanchez MD Primary Care Provider [phone] Encounter Details Date Type Department Care Team (Late st Contact Info) Description 06/13/2024 Abstract [facility] N[facility] POD [address] [place] [address] Milton Duvall, DPM FACFAS [address] [facility] [place] [address] Social History Tobacco Use Types Packs/Day Years [...] week 05/09/2024 How often do you attend zoroastrian or yarsanism serv ices? Never 05/09/2024 Do you belong to any clubs o r organizations such as zoroastrian groups, unions, fraternal or athletic groups, or [...] and heating? Not hard at all 05/09/2024 [facility] - Occupational Stress Questionnaire Answer Date Recorded [...] in the past 12 m [facility], were you homeless [...] EDT Office Visit [facility] [address] [facility] [phone] Milton Duvall, DPM FACFAS 368 [facility] [place] [address] 12/16/2024 9:45 AM EDT Office Visit [facility] [place] [address] [place] 110 [place] [address] Emerald Sanchez MD [address] [place] 110 [place] [address] 12/26/2024 1:20 PM EDT Office Visit [facility] [place] [facility] [address] [facility] 310 [place] [address] Jatin Cabrera MD [address] [phone] documented as of this encounter Goals Goal [...] documented as of this encounter Care Teams Estate Planning Director Relationship Specialty Start Date End Date Emerald Sanchez MD [address] [facility] 110 [place] [address] PCP - Medical [place] Commercial 10/22/18 04/23/99 Emerald Sanchez MD [address] [facility] 110 [place] [address] PCP - General Family Medicine 08/30/22 documented as of this encounter
--- OUTSIDE RECORDS SUMMARY | 2024-12-12 11:28 | XMS_ITS | Encounter Summary ---
Author Organization [facility] Address [address] [facility] [place] [address] Care Team Providers Care Cooker Soda Name Role Phone Emerald Sanchez MD Unavailable Emerald Sanchez MD Primary Care Provider [phone] Encounter Details Date Type Department Care Team (Late st Contact Info) Description 05/09/2024 Abstract [facility] [place] [facility] [address] [facility] 110 [place] [phone] Emerald Sanchez MD [address] [place] [address] [place] [address] Social History Tobacco Use Types Packs/Day Years [...] week 05/09/2024 How often do you attend mandaen or catholic serv ices? Never 05/09/2024 Do you belong to any clubs o r organizations such as mandaen groups, unions, fraternal or athletic groups, or [...] and heating? Not hard at all 05/09/2024 [facility] - Occupational Stress Questionnaire Answer [...] a care home (including now)? No 04/18/2023 Housing Stability [...] any time in the past [facility], were you homeless or living in a care home (including now)? No 05/09/2024 Comments No [...] EDT Office Visit [facility] NMA POD [address] [facility] [place] [address] Milton Duvall, DPM FACFAS [address] [facility] [place] [address] 12/16/2024 9:45 AM EDT Office Visit [facility] [place] [facility] [address] [facility] 110 [place] [address] Emerald Sanchez MD [address] [facility] 110 [place] [address] 12/26/2024 1:20 PM EDT Office Visit [facility] [place] [facility] [address] [facility] 310 [place] [address] Jatin Cabrera MD [address] [facility] [address] [phone] documented as of this encounter Goals Goal [...] documented as of this encounter Care Teams Cooker Soda Relationship Specialty Start Date End Date Emerald Sanchez MD [address] [facility] 110 [place] [address] PCP - Medical [place] Commercial 10/22/18 04/23/99 Emerald Sanchez MD [address] [facility] 110 [place] [address] PCP - General Family Medicine 08/30/22 documented as of this encounter
--- OUTSIDE RECORDS SUMMARY | 2024-12-12 11:28 | XMS_ITS | Encounter Summary ---
Author Organization [facility] Address [address] [place] [address] Care Team Providers Care Lease Buyer Name Role Phone Emerald Hagen MD Unavailable Emerald Hagen MD Primary Care Provider [phone] Encounter Details Date Type Department Care Team (Late st Contact Info) Description 01/17/2024 Clinisync Result Encounter N[facility] External Department Unsolicited Emreald Hagen MD [address] [facility] 110 [place] [id number] Social History Tobacco Use Types Packs/Day Years [...] often do you attend chur ch or uatsdin services? Never 04/18/2023 Do you belong to [...] EDT Office Visit [facility] NMA POD [address] [place] [address] Milton Duvall, DPM FACFAS 368 [place] [address] 12/16/2024 9:45 AM EDT Office Visit [facility] [place] [facility] [address] [facility] 110 [place] [address] Emerald Hagen MD [address] [facility] 110 [place] [address] 12/26/2024 1:20 PM EDT Office Visit [facility] [place] [facility] [address] [facility] 310 [place] [address] Jatin Cabrera MD [address] [facility] [address] Simeon [address] [place] [address] documented as of this encounter Goals [...] AM EDT Narrative 01/17/2024 6:23 [place] [address] XRay Report Signed Patient: BELGICA BARNETT MR#: [id number] : 1990 Acct:[id number] Age/Sex: 33 / F ADM Date: 01/12/24 Loc: RAD Attending Dr: EMERALD HAGEN Ordering Physician: EMERALD HAGEN Date of Service: 01/12/24 Procedure(s): XR cervical spine 2-3V Accession Number(s): [id number] cc: EMERALD HAGEN [place] [id number] Patient Name: BELGICA BARNETT MRN: [id number] date: 1990 Sex: F Assigned Patient Location: [facility] Current Patient Location: ED.MAIN Accession/Order Number: [id number] Exam Date: 01/12/2024 16:55 Report Date: 01/17/2024 06:21 At the request of: EMERALD HAGEN Procedure: XR cervical spine 2-3V EXAMINATION: XR cervical spine 2-3V HISTORY: cervical [id number] , neck pain, numbness in shoulders and [...] spine if symptoms persist. Electronically authenticated by: LAURIE BRUNO Date: 01/17/2024 06:21 Dictated By: Laurie Bruno M.D. Signed By: 01/17/24622 DD/ 0 TD/TT: Licensed Practical Nurse: Procedure Note Radiology, Radiologist, MD - 01/17/2024 [place] [address] XRay Report Signed Patient: BELGICA BARNETT AMR#: [id number] : 1990Acct:[id number] Age/Sex: 33 / FADM Date: 01/12/24 Loc: [facility] Attending Dr: EMERALD HAGEN Ordering Physician: EMERALD HAGEN Date of Service: 01/12/24 Procedure(s): XR cervical spine 2-3V Accession Number(s): [id number] cc: EMERALD HAGEN [place] [id number] Patient Name: BELGICA BARNETT MRN: [id number] date: 1990 Sex: F Assigned Patient Location: [facility] Current Patient Location: ED.MAIN Accession/Order Number: [id number] Exam Date: 01/12/2024 16:55 Report Date: 01/17/2024 06:21 At the request of: EMERALD HAGEN Procedure: XR cervical spine 2-3V EXAMINATION: XR cervical spine 2-3V HISTORY: cervical [id number] , neck pain, numbness in shouldersand fingers [...] spine if symptoms persist. Electronically authenticated by: LAURIE BRUNO Date: 01/17/2024 06:21 Dictated By: Laurie Bruno M.D. Signed By:01/17/2423 DD/ 0 TD/TT: Licensed Practical Nurse: Emerald Hagen MD [facility] Final Result documented in this encounter Visit Diagnoses Not on filedocumented in this encounter Additional Health Concerns Active Problems Noted Date Diagnosed Date Patient on antidepressant monitoring plan 2023 Baseline PHQ-9 05/08/2023 documented as of this encounter Care Teams Lease Buyer Relationship Specialty Start Date End Date Emerald Hagen MD 112 [facility] 110 [place] [address] PCP - Medical [place] Commercial 10/22/18 04/23/99 Emerald Hagen MD 112 [facility] 110 [place] [address] PCP - General Family Medicine 08/30/22 documented as of this encounter
--- OUTSIDE RECORDS SUMMARY | 2024-12-12 11:28 | XMS_ITS | Encounter Summary ---
Author Organization [facility] Address [address] [facility] [place] [address] Care Team Providers Care Marine Fitter Name Role Phone Emerald Sanchez MD Unavailable Emerald Sanchez MD Primary Care Provider [phone] Encounter Details Date Type Department Care Team (Late st Contact Info) Description 05/15/2024 Abstract [facility] [place] [facility] [address] [facility] 110 [place] [address] Emerald Sanchez MD [address] [place] 110 [place] [address] Social History Tobacco Use Types Packs/Day Years [...] week 05/09/2024 How often do you attend jainism or restorationist serv ices? Never 05/09/2024 Do you belong to any clubs o r organizations such as jainism groups, unions, fraternal or athletic groups, or [...] and heating? Not hard at all 05/09/2024 [facility] - Occupational Stress Questionnaire Answer [...] any time in the past [address] [facility], were you homeless or living in [...] EDT Office Visit [facility] NMA POD [address] [place] [address] Milton Duvall, DPM FACFAS [address] [facility] [place] [address] 12/16/2024 9:45 AM EDT Office Visit [facility] [place] [facility] [address] [facility] 110 [place] [address] Emerald Sanchez MD [address] [facility] 110 [place] [address] 12/26/2024 1:20 PM EDT Office Visit [facility] [address] [facility] 310 [place] [address] Jatin Cabrera MD 5341 [facility] [address] [phone] documented as of this encounter Goals Goal [...] documented as of this encounter Care Teams Marine Fitter Relationship Specialty Start Date End Date Emerald Sanchez MD [address] [facility] 110 [place] [address] PCP - Medical [place] Commercial 10/22/18 04/23/99 Emerald Sanchez MD [address] [facility] 110 [place] [address] PCP - General Family Medicine 08/30/22 documented as of this encounter
--- OUTSIDE RECORDS SUMMARY | 2024-12-12 11:28 | XMS_ITS | Encounter Summary ---
Author Organization [facility] Address [address] [facility] [place] [address] Care Team Providers Care Field Sales Executive Name Role Phone Emerald Sanchez MD Unavailable Emerald Sanchez MD Primary Care Provider [phone] Encounter Details Date Type Department Care Team (Late st Contact Info) Description 01/29/2024 Abstract [facility] [place] [facility]ince [address] [facility] 110 [place] [address] Emerald Sanchez MD [address] [place] 110 [place] [address] Social History Tobacco Use Types Packs/Day Years [...] often do you attend chur ch or latter day services? Never 04/18/2023 Do you belong to any clubs o r organizations such as sabianism groups, unions, fraternal or athletic groups, or [...] and heating? Not hard at all 04/18/2023 [facility] [...] place to sleep or slept in a usp (including now)? No 04/18/2023 Comments No Sex [...] EDT Office Visit N[facility] NMA POD 368 [place] [address] Milton Duvall, DPM FACFAS 368 [place] [address] 12/16/2024 9:45 AM EDT Office Visit [facility] [place] [facility] [address] [facility] 110 [place] [address] Emerald Sanchez MD [address] [facility] 110 [place] [address] 12/26/2024 1:20 PM EDT Office Visit [facility] [place] [facility] [address] [facility] 310 [place] [address] Jatin Cabrera MD [address] [facility] [address] Simeon [address] [place] [address] [phone] documented as of this encounter Goals Goal [...] documented as of this encounter Care Teams Field Sales Executive Relationship Specialty Start Date End Date Emerald Sanchez MD 112 [facility] 110 [place] [address] PCP - Medical [place] Commercial 10/22/18 04/23/99 Emerald Sanchez MD 112 [facility] 110 [place] [address] PCP - General Family Medicine 08/30/22 documented as of this encounter
--- OUTSIDE RECORDS SUMMARY | 2024-12-12 11:28 | XMS_ITS | Encounter Summary ---
Author Organization [facility] Address [address] [facility] [place] [address] Care Team Providers Care Fire Management Technician Name Role Phone Emerald Sanchez MD Unavailable Emerald Sanchez MD Primary Care Provider [phone] Encounter Details Date Type Department Care Team (Late st Contact Info) Description 01/22/2024 Abstract [facility] [place] [facility] [address] [facility] 110 [place] [address] Emerald Sanchez MD [address] [place] 110 [place] [address] Social History Tobacco Use Types Packs/Day Years [...] often do you attend chur ch or taoism services? Never 04/18/2023 Do you belong to [...] and heating? Not hard at all 04/18/2023 [facility] of Occupat ional [...] EDT Office Visit [facility] NMA POD 368 [place] [address] Milton Duvall, DPM FACFAS 368 [place] [address] 12/16/2024 9:45 AM EDT Office Visit [facility] [place] [facility] [address] [facility] 110 [place] [address] Emerald Sanchez MD [address] [facility] 110 [place] [address] 12/26/2024 1:20 PM EDT Office Visit [facility] [place] [facility] [address] [facility] 310 [place] [address] Jatin Cabrera MD [address] [facility] [address] Simeon [address] [place] [address] [phone] documented as of this encounter Goals Goal [...] as of this encounter Care Teams Fire Management Technician Relationship Specialty Start Date End Date Emerald Sanchez MD 112 [facility] 110 [place] [address] PCP - Medical [place] Commercial 10/22/18 04/23/99 Emerald Sanchez MD 112 [facility] 110 [place] [address] PCP - General Family Medicine 08/30/22 documented as of this encounter
--- OUTSIDE RECORDS SUMMARY | 2024-12-12 11:28 | XMS_ITS | Encounter Summary ---
Author Organization [facility] Address [address] [facility] [place] [address] Care Team Providers Care Cement Loader Name Role Phone Emerald Sanchez MD Unavailable Emerald Sanchez MD Primary Care Provider [phone] Encounter Details Date Type Department Care Team (Late st Contact Info) Description 01/10/2024 Abstract [facility] [place] [facility] [address] [facility] 110 [place] [address] Emerald Sanchez MD [address] [place] 110 [place] [address] Social History Tobacco Use Types Packs/Day Years [...] often do you attend chur ch or sikh services? Never 04/18/2023 Do you belong to [...] EDT Office Visit [facility] NMA POD [address] [place] [address] Milton Duvall, DPM FACFAS 368 [place] [address] 12/16/2024 9:45 AM EDT Office Visit [facility] [place] [facility] [address] [facility] 110 [place] [address] Emerald Sanchez MD [address] [facility] 110 [place] [address] 12/26/2024 1:20 PM EDT Office Visit [facility] [place] [facility] [address] [facility] 310 [place] [address] Jatin Cabrera MD [address] [facility] [address] [place] [address] [phone] documented as of this encounter Goals Goal [...] documented as of this encounter Care Teams Cement Loader Relationship Specialty Start Date End Date Emerald Sanchez MD 112 [facility] 110 [place] [address] PCP - Medical [place] Commercial 10/22/18 04/23/99 Emerald Sanchez MD 112 [facility] 110 [place] [address] PCP - General Family Medicine 08/30/22 documented as of this encounter
--- OUTSIDE RECORDS SUMMARY | 2024-12-12 11:28 | XMS_ITS | Encounter Summary ---
Author Organization [facility] Address [address] [place] [address] Care Team Providers Care Assisted Living Director Name Role Phone Emerald Sanchez MD Primary Care Provider [phone] Deena Osorio MANAGER [place] Unavailable [phone] Darwin Starr DO Unavailable [phone] Source Comments In the event this information is protected by the Federal Confidentiality of Alcohol and Drug AbusePatient Records regulations: The Federal rules restrict any use of the information to criminally investigate or prosecute any alcohol or drug abuse patient.[facility] Reason for Referral * Diagnostic Procedure Only (Routine) - Closed Specialty Diagnoses / Procedures Referred By Contac t Referred To Contact XR IMAGING Diagnoses Chronic idiopathic constipation Procedures XR ABDOMEN 2V ROUTINE SUPINE W UPRIGHT/DECUB/CTL RADIOLOGIC EXAM ABDOMEN 2 VIEWS Iliana Hendrickson PA-C [address] [place] [address] Phone: tel: fax: [place] [id number] Referral ID Status Reason Start Date Expiration Date V isits Requested Visits Authorized [id number] Closed Auto-Generate d Referral 07/09/2024 08/07/2025 1 1 Encounter Details Date Type Department Care Team (Late st Contact Info) Description 07/05/2024 Get Medical Advice Gastroenterology [address] [address] [place] [address] [place] [phone] Office visit Social History Tobacco Use Types [...] is lower risk 4 10/17/2022 Data from: https://www.neighborhoodatlas.[facility]/. Last address used for calculation [phone] [...] EDT Office Visit Gynecology [address] [place] [address] Emma Ying APRN.AEROLOGIST [address] [place] [address] Other specified dyspareunia documented as of this [...] IMPRESSION: Mild to moderate colonic stool content Hand Binder Cutter: MINAL Transcribe Date/Time: Jul 13 2024 9:59A [...] osseous process is evident. Procedure Note Provider, [facility] - 07/13/2024 * * *Final Report* * [...] IMPRESSION: Mild to moderate colonic stool content Hand Binder Cutter: [facility] Transcribe Date/Time: Jul 13 2024 9:59A [...] constipation documented in this encounter Care Teams Assisted Living Director Relationship Specialty Start Date End Date Emerald Sanchez MD 112 [facility] 110 [place] [address] PCP - General Family Medicine 03/27/19 Deena Osorio APRN [address] [facility] 110 [place] [address] Referring Family Medicine 04/03/24 Darwin Starr DO [address] [place] [address] Dr Tadeo [place] [phone] Referring Custom Bookbinder 07/02/24 documented as of this encounter
--- OUTSIDE RECORDS SUMMARY | 2024-12-12 11:28 | XMS_ITS | Encounter Summary ---
Author Organization [facility] Address [address] [facility] [place] [address] Care Team Providers Care Travel Accommodations Rater Name Role Phone Emerald Sanchez MD Unavailable Emerald Sanchez MD Primary Care Provider [phone] Encounter Details Date Type Department Care Team (Late st Contact Info) Description 01/30/2024 Abstract [facility] [place] [facility] [address] [facility] 110 [place] [address] Emerald Sanchez MD [address] [place] 110 [place] [address] Social History Tobacco Use Types Packs/Day Years [...] Visit NOMS NMA POD 368 [place] [address] Milton Duvall, DPM FACFAS 368 [place] [address] 12/16/2024 9:45 AM EDT Office Visit [facility] [place] [facility] [address] [facility] 110 [place] [address] Emerald Sanchez MD [address] [facility] 110 [place] [address] 12/26/2024 1:20 PM EDT Office Visit [facility] [place] [facility] [address] [facility] 310 [place] [address] Jatin Cabrera MD [address] [facility] [address]on [address] [place] [address] [phone] documented as of this encounter Goals Goal [...] documented as of this encounter Care Teams Travel Accommodations Rater Relationship Specialty Start Date End Date Emerald Sanchez MD 112 [facility] 110 [place] [address] PCP - Medical [place] Commercial 10/22/18 04/23/99 Emerald Sanchez MD 112 [facility] 110 [place] [address] PCP - General Family Medicine 08/30/22 documented as of this encounter
--- OUTSIDE RECORDS SUMMARY | 2024-12-12 11:28 | XMS_ITS | Encounter Summary ---
Author Organization [facility] Address [address] [facility] [place] [address] Care Team Providers Care Natural Science Manager Name Role Phone Emerald Sanchez MD Unavailable Emerald Sanchez MD Primary Care Provider [phone] Encounter Details Date Type Department Care Team (Late st Contact Info) Description 11/30/2023 Abstract [facility] [address] [facility] 110 [place] [address] Emerald Sanchez MD [address] [place] 110 [place] [address] Social History Tobacco Use Types Packs/Day Years [...] heating? Not hard at all 04/18/2023 [facility] of Occupat ional Health - [...] EDT Office Visit [facility] NMA POD [address] [place] [address] Milton Duvall, DPM FACFAS 368 [place] [address] 12/16/2024 9:45 AM EDT Office [facility] [address] [facility] 110 [place] [address] Emerald Sanchez MD [address] [facility] 110 [place] [address] 12/26/2024 1:20 PM EDT Office Visit [facility] [place] [facility] [address] [facility] 310 [place] [address] Jatin Cabrera MD [address] [facility] [address] Simeon [address] [place] [id number] documented as of this encounter Goals Goal [...] documented as of this encounter Care Teams Natural Science Manager Relationship Specialty Start Date End Date Emerald Sanchez MD 112 [facility] 110 [place] [address] PCP - Medical Counselor Commercial 10/22/18 04/23/99 Emerald Sanchez MD 112 [facility] 110 [place] [address] PCP - General Family Medicine 08/30/22 documented as of this encounter
--- OUTSIDE RECORDS SUMMARY | 2024-12-12 11:28 | XMS_ITS | Encounter Summary ---
Author Organization [facility] Address [facility] [place] [address] Care Team Providers Care Licensed Electrician Name Role Phone Emerald Sanchez MD Primary Care Provider [phone] Deena Osorio APRN Unavailable [phone] Darwin Starr DO Unavailable [phone] Source Comments In the event this information is protected by the Federal Confidentiality of Alcohol and Drug AbusePatient Records regulations: The Federal rules restrict any use of the information to criminally investigate or prosecute any alcohol or drug abuse patient.[facility] Encounter Details Date Type Department Care Team (Late st Contact Info) Description 10/18/2022 [place] [address] Provider, [facility] Financial Clearance Status Social History [...] is lower risk 4 10/17/2022 Data from: https://www.neighborhoodatlas.medicine.[facility].edu/. Last address used for calculation [address] [...] Office Visit Gynecology [address] [place] [address] Emma Ying, COMMISSARY REPRESENTATIVE.SERVICE DESK DIRECTOR [address] [place] [address] Other specified dyspareunia documented as of this encounter Visit Diagnoses Not on filedocumented in this encounter Additional Health Concerns Infection Onset Date Last Indicated Resolved Time C. difficile 05/22/2024 05/22/2024 06/21/2024 8:51 PM EST documented as of this encounter Care Teams Licensed Electrician Relationship Specialty Start Date End Date Emerald Sanchez MD [address] [facility] 110 [place] [address] PCP - General Family Medicine 03/27/19 Deena Osorio, COMMISSARY REPRESENTATIVE [address] [facility] 110 [place] [address] Referring Family Medicine 04/03/24 Darwin Starr DO [address] [place] [address] [place] [address] Referring Control Supervisor 07/02/24 documented as of this encounter
--- OUTSIDE RECORDS SUMMARY | 2024-12-12 11:28 | XMS_ITS | Encounter Summary ---
Author Organization [facility] Address [address] [facility] [place] [address] Care Team Providers Care Deep Submergence Vehicle Crewmember Name Role Phone Emerald Sanchez MD Unavailable Emerald Sanchez MD Primary Care Provider [phone] Encounter Details Date Type Department Care Team (Late st Contact Info) Description 12/13/2023 Abstract [facility] [address] [facility] 110 [place] [address] Emerald Sanchez MD [address] [place] 110 [place] [address] Social History Tobacco Use Types Packs/Day Years [...] hard at all 04/18/2023 [facility] of Occupat ional Health - [...] EDT Office Visit [facility] NMA POD 368 [place] [address] Milton Duvall, DPM FACFAS 368 [place] [address] 12/16/2024 9:45 AM EDT Office Visit [facility] [address] [facility] 110 [place] [address] Emerald Sanchez MD [address] [facility] 110 [place] [address] 12/26/2024 1:20 PM EDT Office Visit [facility] [place] [facility] [address] [facility] 310 [place] [address] Jatin Cabrera MD [address] [facility] [address] Simeon [address] [place] [phone] documented as of this encounter Goals Goal [...] documented as of this encounter Care Teams Deep Submergence Vehicle Crewmember Relationship Specialty Start Date End Date Emerald Sanchez MD 112 [facility] 110 [place] [address] PCP - Medical [place] Commercial 10/22/18 04/23/99 Emerald Sanchez MD 112 [facility] 110 [place] [address] PCP - General Family Medicine 08/30/22 documented as of this encounter
--- OUTSIDE RECORDS SUMMARY | 2024-12-12 11:28 | XMS_ITS ---
Author Organization [facility] Address [address] [place] [address] Care Team Providers Care Soft Work Cigar Machine Operator Name Role Phone Emerald Sanchez MD Unavailable Emerald Sanchez MD Primary Care Provider [phone] Emergency Department Transitional Care Management (TCM) Status:Closed (Closed) Start date:12/09/2024 Enrollment date:12/10/2024 Enrollment reason:Identified using hospital discharge data End date:12/10/2024 Close reason:Assistance not needed Overview Discharged from [facility] ER on 12/09. Please contact within 2 days of discharge for ERTOC and schedule a follow-up appointment if needed. Continued Care and Services Coordination
--- OUTSIDE RECORDS SUMMARY | 2024-12-12 11:28 | XMS_ITS | Encounter Summary ---
Author Organization [facility] Address [address] [place] [address] Care Team Providers Care Inside Sales Trainer Name Role Phone Emerald Sanchez MD Primary Care Provider [phone] Deena Osorio BALL WORKER Unavailable [phone] Darwin Starr DO Unavailable [phone] Source Comments In the event this information is protected by the Federal Confidentiality of Alcohol and Drug AbusePatient Records regulations: The Federal rules restrict any use of the information to criminally investigate or prosecute any alcohol or drug abuse patient.[facility] Encounter Details Date Type Department Care Team (Late st Contact Info) Description 05/21/2024 GI Preprocedure Call Ambulatory Surgery [address] [place] [address] [place] [address] [place] [address] Social History Tobacco Use Types Packs/Day Years [...] is lower risk 4 10/17/2022 Data from: https://www.neighborhoodatlas.medicine.[facility]/. Last address used for calculation [address] [...] Office Visit Gynecology [address] [place] [address] Emma Ying APRN.SENIOR PAYROLL ADMINISTRATOR [address] [place], [place] [id number] Other specified dyspareunia documented as of this [...] documented as of this encounter Care Teams Inside Sales Trainer Relationship Specialty Start Date End Date Emerald Sanchez MD [address] [facility] 110 [place] [address] PCP - General Family Medicine 03/27/19 Deena Osorio, BALL WORKER [address] [facility] 110 [place] [address] Referring Family Medicine 04/03/24 Darwin Starr DO [address] [place] [address] Referring Chemistry Account Manager 07/02/24 documented as of this encounter
--- OUTSIDE RECORDS SUMMARY | 2024-12-12 11:28 | XMS_ITS | Encounter Summary ---
Author Organization [facility] Address [address] [facility] [place] [address] Care Team Providers Care Oral Communication Instructor Name Role Phone Emerald Sanchez MD Unavailable Emerald Sanchez MD Primary Care Provider [phone] Encounter Details Date Type Department Care Team (Late st Contact Info) Description 05/20/2024 Abstract [facility] [address] [facility] 110 [place] [address] Emerald Sanchez MD [address] [place] 110 [place] [address] Social History Tobacco Use Types Packs/Day Years [...] week 05/09/2024 How often do you attend christian or taoist serv ices? Never 05/09/2024 Do you belong to any clubs o r organizations such as christian groups, unions, fraternal or athletic groups, or [...] and heating? Not hard at all 05/09/2024 [facility] - Occupational Stress Questionnaire Answer [...] EDT Office Visit [facility] NMA POD 368 [place] [address] Milton Duvall, DPM FACFAS 368 [facility] [place] [address] 12/16/2024 9:45 AM EDT Office Visit [facility] [address] [facility] 110 [place] [address] Emerald Sanchez MD [address] [facility] 110 [place] [address] 12/26/2024 1:20 PM EDT Office Visit NOMRod[facility] Neurology [address] [facility] 310 [place] [address] Jatin Cabrera MD 53 [facility] [address] [phone] documented as of this encounter Goals Goal Patient Goal Type Associated Problems Recent Progress Patient-Stated? Author Help patient manage antidepressant medication Care Plan Patient on antidepressant monitoring plan No Emerald Snachez MD Baseline PHQ-9 Care Plan Baseline PHQ-9 No Emerald Sanchez MD documented as of this encounter Visit Diagnoses Not on filedocumented in this encounter Additional Health Concerns Active Problems Noted Date Diagnosed Date Patient on antidepressant monitoring plan 2023 Baseline PHQ-9 05/08/2023 documented as of this encounter Care Teams Oral Communication Instructor Relationship Specialty Start Date End Date Emerald Sanchez MD [address] [facility] 110 [place] [address] PCP - Medical [place] Commercial 10/22/18 04/23/99 Emerald Sanchez MD [address] [facility] 110 [place] [address] PCP - General Family Medicine 08/30/22 documented as of this encounter
--- OUTSIDE RECORDS SUMMARY | 2024-12-12 11:28 | XMS_ITS | Encounter Summary ---
Author Organization [facility] Address [address] [facility] [place] [address] Care Team Providers Care Automotive Sales Manager Name Role Phone Emerald Sanchez MD Unavailable Emerald Sanchez MD Primary Care Provider [phone] Encounter Details Date Type Department Care Team (Late st Contact Info) Description 05/30/2024 Abstract [facility] [address] [facility] 110 [place] [address] Emerald Sanchez MD [address] [place] 110 [place] [address] Social History Tobacco Use Types Packs/Day Years [...] week 05/09/2024 How often do you attend muslim or buddhist serv ices? Never 05/09/2024 Do you belong to any clubs o r organizations such as muslim groups, unions, fraternal or athletic groups, or [...] and heating? Not hard at all 05/09/2024 [facility] - Occupational Stress Questionnaire Answer [...] in a detention (including now)? No 04/18/2023 Housing Stability Vital Sign Answer Celso e Recorded In the last 12 months, was t here a time when you were not able to pay the mortgage or rent on time? No 05/09/2024 In the past 12 months, how m any times have you moved where you were living? 0 05/09/2024 At any time in the past 12 m [facility], were you homeless or living in a detention (including now)? No 05/09/2024 Comments No Sex [...] EDT Office Visit [facility] NMA POD 368 [place] [address] Milton Duvall, DPM FACFAS 368 [facility] [place] [address] 12/16/2024 9:45 AM EDT Office Visit [facility] [address] [facility] 110 [place] [address] Emerald Sanchez MD [address] [facility] 110 [place] [address] 12/26/2024 1:20 PM EDT Office Visit [facility] Matt [facility] [address] [facility] 310 [place] [address] Jatin Cabrera MD 5378 [facility] [address] [phone] documented as of this encounter Goals Goal [...] as of this encounter Care Teams Automotive Sales Manager Relationship Specialty Start Date End Date Emerald Sanchez MD [address] [facility] 110 [place] [address] PCP - Medical [place] Commercial 10/22/18 04/23/99 Emerald Sanchez MD [address] [facility] 110 [place] [address] PCP - General Family Medicine 08/30/22 documented as of this encounter
--- OUTSIDE RECORDS SUMMARY | 2024-12-12 11:28 | XMS_ITS | Encounter Summary ---
Author Organization [facility] Address [address] [place] [address] Care Team Providers Care Practice Consultant Name Role Phone Emerald Sanchez MD Unavailable Emerald Sanchez MD Primary Care Provider [phone] Encounter Details Date Type Department Care Team (Late st Contact Info) Description 05/23/2024 Abstract [facility] 102 [facility] [place] [address] Darwin Starr DO 102 [facility] [address] Carlyle Mancuso, [facility] Social History Tobacco Use Types Packs/Day [...] How often do you attend sikh or temple serv ices? Never 05/09/2024 Do you belong [...] and heating? Not hard at all 05/09/2024 [facility] of Occupat ional [...] any time in the past 12 m [facility], were you homeless or living in a [...] EDT Office Visit [facility] NMA POD 368 [place] [address] Milton Duvall, DPM FACFAS 368 [facility] [place] [address] 12/16/2024 9:45 AM EDT Office Visit [facility] 112 [facility] 110 [place] [address] Emerald Sanchez MD 112 [place] [facility] 110 [place] [address] 12/26/2024 1:20 PM EDT Office Visit [facility] [place] [facility] [address] [facility] 310 [place] [address] Jatin Cabrera MD 2605 [facility] [address] [phone] documented as of this encounter Goals Goal [...] documented as of this encounter Care Teams Practice Consultant Relationship Specialty Start Date End Date Emerald Sanchez MD 112 [place] [facility] 110 [place] [address] PCP - Medical [place] Commercial 10/22/18 04/23/99 Emerald Sanchez MD 112 [place] [facility] 110 [place] [address] PCP - General Family Medicine 08/30/22 documented as of this encounter
--- OUTSIDE RECORDS SUMMARY | 2024-12-12 11:28 | XMS_ITS | Encounter Summary ---
Author Organization [facility] Address [address] [place] [address] Care Team Providers Care Supervisor Plate Pasting Name Role Phone Emerald Sanchez MD Unavailable Emerald Sanchez MD Primary Care Provider [phone] Encounter Details Date Type Department Care Team (Late st Contact Info) Description 12/12/2024 Bamboo flowsheet [facility] [address] [facility] 110 [place] [address] Sandy Hammond PA [address] [facility] 110 [place] [address] Social History Tobacco Use Types Packs/Day Years [...] week 05/09/2024 How often do you attend mosque or anabaptist serv ices? Never 05/09/2024 Do you belong [...] Recorded Patient Health Questionnaire-2 Score 4 10/08/2024 [facility] of Occupat ional Health - Occupational Stress [...] place to sleep or slept in a long term (including now)? No 04/18/2023 Housing Stability Vital Sign Answer Celso e Recorded In the last 12 months, was t here a time when you were not able to pay the mortgage or rent on time? No 05/09/2024 In the past 12 months, how m any times have you moved where you were living? 0 05/09/2024 At any time in the past 12 m [facility], were you homeless or living in a long term (including now)? No 05/09/2024 Comments No Sex [...] EDT Office Visit [facility] NMA POD 368 [place] [address] Milton Duvall, DPM FACFAS 368 [facility] [place] [address] 12/16/2024 9:45 AM EDT Office Visit [facility]ro [facility] 112 [facility] 110 [place] [address] Emerald Sanchez MD 112 [facility] 110 [place] [address] 12/26/2024 1:20 PM EDT Office Visit [facility] [place] [facility] [address] [facility] 310 [place] [address] Jatin Cabrera MD [address] [phone] documented as of this encounter Goals Goal [...] documented as of this encounter Care Teams Supervisor Plate Pasting Relationship Specialty Start Date End Date Emerald Sanchez MD [address] [address] PCP - Medical [place] Commercial 10/22/18 04/23/99 Emerald Sanchez MD [address] [place] [facility] 110 [place] [address] PCP - General Family Medicine 08/30/22 documented as of this encounter
--- OUTSIDE RECORDS SUMMARY | 2024-12-12 11:28 | XMS_ITS | Encounter Summary ---
Author Organization [facility] Address [address] [facility] [place] [address] Care Team Providers Care Sand Caster Apprentice Name Role Phone Emerald Sanchez MD Unavailable Emerald Sanchez MD Primary Care Provider [phone] Encounter Details Date Type Department Care Team (Late st Contact Info) Description 01/12/2024 Abstract [facility] [address] [facility] 110 [place] [address] Emerald Sanchez MD [address] [place] 110 [place] [address] Social History Tobacco Use Types Packs/Day Years [...] any clubs o r organizations such as pentecostal groups, unions, fraternal or athletic groups, or [...] and heating? Not hard at all 04/18/2023 [facility] of Occupat ional Health [...] EDT Office Visit N[facility]S NMA POD 368 [place] [address] Milton Duvall, DPM FACFAS 368 [place] [address] 12/16/2024 9:45 AM EDT Office Visit [facility] [address] [facility] 110 [place] [address] Emerald Sanchez MD [address] [facility] 110 [place] [address] 12/26/2024 1:20 PM EDT Office Visit [facility] [place] [facility] [address] [facility] 310 [place] [address] Jatin Cabrera MD [address] [facility] [address] Simeon [address] [place] [phone] documented as of this encounter Goals Goal [...] documented as of this encounter Care Teams Sand Caster Apprentice Relationship Specialty Start Date End Date Emerald Sanchez MD 112 [facility] 110 [place] [address] PCP - Medical [place] Commercial 10/22/18 04/23/99 Emerald Sanchez MD 112 [facility] 110 [place] [address] PCP - General Family Medicine 08/30/22 documented as of this encounter
--- OUTSIDE RECORDS SUMMARY | 2024-12-12 11:28 | XMS_ITS | Encounter Summary ---
Author Organization [facility] Address [address] [facility] [place] [address] Care Team Providers Care Storage Battery Tester Name Role Phone Emerald Sanchez MD Unavailable Emerald Sanchez MD Primary Care Provider [phone] Encounter Details Date Type Department Care Team (Late Contact Info) Description 11/03/2022 Abstract [facility] Erasmo Duvall [address] [facility] 110 [place] [address] Emerald Sanchez MD [address] [facility] 110 [place], [place] [phone] Social History Tobacco Use Types Packs/Day Years [...] EDT Office Visit [facility] NMA POD 368 [place] [address] Milton Duvall, DPM FACFAS 368 [facility] A [place], [place] [address] 12/16/2024 9:45 AM EDT Office Visit [facility] Erasm[facility] Scott Med[facility] [address] [facility] 110 [place] [address] Emerald Sanchez MD [address] [facility] 110 [place] [address] 12/26/2024 1:20 PM EDT Office Visit [facility] [place] [facility] [address] [facility] 310 [place] [address] Jatin Cabrera MD 1489 [facility] [address] [address] documented as of this encounter Visit Diagnoses Not on filedocumented in this encounter Care Teams Storage Battery Tester Relationship Specialty Start Date End Date Emerald Sanchez MD [address] [facility] 110 [place] [address] PCP - Medical [place] Commercial 10/22/18 04/23/99 Emerald Sanchez MD [address] [facility] 110 [place] [address] PCP - General Family Medicine 08/30/22 documented as of this encounter
--- OUTSIDE RECORDS SUMMARY | 2024-12-12 11:28 | XMS_ITS | Encounter Summary ---
Author Organization [facility] Address [address] [facility] [place] [address] Care Team Providers Care Process Architect Name Role Phone Emerald Sanchez MD Unavailable Emerald Sanchez MD Primary Care Provider [phone] Encounter Details Date Type Department Care Team (Late st Contact Info) Description 01/02/2024 Abstract [facility] [address] [facility] 110 [place] [address] Emerald Sanchez MD [address] [place] 110 [place] [address] Social History Tobacco Use Types Packs/Day Years [...] often do you attend chur ch or holiness services? Never 04/18/2023 Do you belong to [...] and heating? Not hard at all 04/18/2023 [facility] of Occupat ional Health - [...] EDT Office Visit N[facility]S NMA POD 368 [place] [address] Milton Duvall, DPM FACFAS 368 [place] [address] 12/16/2024 9:45 AM EDT Office Visit [facility] [address] [facility] 110 [place] [address] Emerald Sanchez MD [address] [facility] [[email or web address]] 110 [place] [address] 12/26/2024 1:20 PM EDT Office Visit [facility] [place] [facility] [address] [facility] [[email or web address]] 310 [place] [address] Jatin Cabrera MD 5775 [facility] [address] S[address]on [address] [place] [address] [phone] documented as of this encounter Goals Goal [...] documented as of this encounter Care Teams Process Architect Relationship Specialty Start Date End Date Emerald Sanchez MD 112 [facility] 110 [place] [address] PCP - Medical [place] Commercial 10/22/18 04/23/99 Emerald Sanchez MD 112 [facility] 110 [place] [address] PCP - General Family Medicine 08/30/22 documented as of this encounter
--- OUTSIDE RECORDS SUMMARY | 2024-12-12 11:28 | XMS_ITS | Encounter Summary ---
Author Organization [facility] Address [address] [place] [address] Care Team Providers Care Insurance Professional Name Role Phone Emerald Sanchez MD Primary Care Provider [phone] Deena Osorio INTERCEPTOR OPERATOR Unavailable [phone] Darwin Starr DO Unavailable [phone] Source Comments In the event this information is protected by the Federal Confidentiality of Alcohol and Drug AbusePatient Records regulations: The Federal rules restrict any use of the information to criminally investigate or prosecute any alcohol or drug abuse patient.[facility] Encounter Details Date Type Department Care Team (Late st Contact Info) Description 05/15/2024 Patient Msg Gastroenterology [address] [place] [id number] Provider, Ccf colon prep Social History Tobacco [...] is lower risk 4 10/17/2022 Data from: https://www.neighborhoodatlas.medicine.[facility].edu/. Last address used for calculation [address] [...] Office Visit Gynecology [address] [place] [address] Emma Ying APRN.MOTOR ROOM CONTROLLER [address] [place] [address] Other specified dyspareunia documented as of this [...] as of this encounter Care Teams Insurance Professional Relationship Specialty Start Date End Date Emerald Sanchez MD [address] [place] [address] [place] [address] PCP - General Family Medicine 03/27/19 Deena Osorio, INTERCEPTOR OPERATOR [address] [place] [address] [place] [address] Referring Family Medicine 04/03/24 Darwin Starr DO [address] [place] [address] Referring Metal Milling Machine Operator 07/02/24 documented as of this encounter
--- OUTSIDE RECORDS SUMMARY | 2024-12-12 11:28 | XMS_ITS | Encounter Summary ---
Author Organization [facility] Address [address] [place] [address] Care Team Providers Care Scheduling Clerk Name Role Phone Emerald Sanchez MD Primary Care Provider [phone] Deena Osorio APRN Unavailable [phone] Darwin Starr DO Unavailable [phone] Source Comments In the event this information is protected by the Federal Confidentiality of Alcohol and Drug AbusePatient Records regulations: The Federal rules restrict any use of the information to criminally investigate or prosecute any alcohol or drug abuse patient.[facility] Encounter Details Date Type Department Care Team (Late st Contact Info) Description 04/19/2024 Patient Msg Cardiology [address] [place], [place] [id number] Provider, Ccf Social History Tobacco Use Types [...] is lower risk 4 10/17/2022 Data from: https://www.neighborhoodatlas.[facility]/. Last address used for calculation [address] [...] Office Visit Gynecology [address] [place] [address] Emma Ying, BASSAM.FLOWER ARRANGER [address] [place], [place] [id number] Other specified dyspareunia documented as of this [...] documented as of this encounter Care Teams Scheduling Clerk Relationship Specialty Start Date End Date Emerald Sanchez MD [address] [facility] 110 [place] [address] PCP - General Family Medicine 03/27/19 Deena Osorio, COMMUNITY SERVICE AIDE [address] [place] [address] [place] [address] Referring Family Medicine 04/03/24 Darwin Starr DO [address] [place] [address] Dr [place], [place] [phone] Referring Informatics Educator 07/02/24 documented as of this encounter
--- OUTSIDE RECORDS SUMMARY | 2024-12-12 11:28 | XMS_ITS | Encounter Summary ---
Author Organization [facility] Address [address] [facility] [place] [address] Care Team Providers Care Firer Kiln Name Role Phone Emerlad Sanchez MD Unavailable Emerald Sanchez MD Primary Care Provider [phone] Encounter Details Date Type Department Care Team (Late st Contact Info) Description 05/20/2024 Abstract [facility] [address] [facility] 110 [place] [address] Emerald Sanchez MD [address] [place] [address] [place] [address] Social History Tobacco Use Types Packs/Day Years [...] week 05/09/2024 How often do you attend quaker or latter day serv ices? Never 05/09/2024 [...] and heating? Not hard at all 05/09/2024 [facility] - Occupational Stress Questionnaire Answer [...] in a fci (including now)? No 04/18/2023 Housing Stability Vital Sign Answer Celso e Recorded In the last 12 months, was t here a time when you were not able to pay the mortgage or rent on time? No 05/09/2024 In the past 12 months, how m any times have you moved where you were living? 0 05/09/2024 At any time in the past 12 m [facility], were you homeless or living in a fci (including now)? No 05/09/2024 Comments No Sex [...] EDT Office Visit [facility] NMA POD [address] [place] [address] Milton Duvall, DPM FACFAS 368 [facility] [place] [address] 12/16/2024 9:45 AM EDT Office Visit [facility] [address] [facility] 110 [place] [address] Emerald Sanchez MD [address] [facility] 110 [place] [address] 12/26/2024 1:20 PM EDT Office Visit [facility] [address] [facility] 310 [place] [address] Jatin Cabrera MD 5310 [facility] [address] [id number] documented as of this encounter Goals Goal [...] documented as of this encounter Care Teams Firer Kiln Relationship Specialty Start Date End Date Emerald Sanchez MD [address] [facility] 110 [place] [address] PCP - Medical [place] Commercial 10/22/18 04/23/99 Emerald Sanchez MD [address] [facility] 110 [place] [address] PCP - General Family Medicine 08/30/22 documented as of this encounter
--- OUTSIDE RECORDS SUMMARY | 2024-12-12 11:28 | XMS_ITS | Encounter Summary ---
Author Organization [facility] Address [address] [facility] [place] [address] Care Team Providers Care Medical Field Representative Name Role Phone Emerald Sanchez MD Unavailable Emerald Sanchez MD Primary Care Provider [phone] Encounter Details Date Type Department Care Team (Late st Contact Info) Description 05/16/2024 Abstract [facility] [address] [facility] 110 [place] [address] Emerald Sanchez MD [address] [place] 110 [place] [address] Social History Tobacco Use Types Packs/Day Years [...] week 05/09/2024 How often do you attend episcopal or oriental orthodox serv ices? Never 05/09/2024 Do you [...] and heating? Not hard at all 05/09/2024 [facility] - Occupational Stress Questionnaire Answer [...] place to sleep or slept in a retirement (including now)? No 04/18/2023 Housing Stability Vital [...] were you homeless or living in a retirement (including now)? No 05/09/2024 Comments No Sex [...] EDT Office Visit [facility] NMA POD [address] [place] [address] Milton Duvall, DPM FACFAS 368 [facility] [place] [address] 12/16/2024 9:45 AM EDT Office Visit [facility] [address] [facility] [facility] 110 [place] [address] Emerald Sanchez MD [address] [facility] 110 [place] [address] 12/26/2024 1:20 PM EDT Office Visit [facility] [address] [facility] 310 [place] [address] Jatin Cabrera MD 5303 [facility] [address] [phone] documented as of this encounter Goals Goal [...] documented as of this encounter Care Teams Medical Field Representative Relationship Specialty Start Date End Date Emerald Sanchez MD [address] [facility] 110 [place] [address] PCP - Medical [place] Commercial 10/22/18 04/23/99 Emerald Sanchez MD [address] [facility] 110 [place] [address] PCP - General Family Medicine 08/30/22 documented as of this encounter
--- OUTSIDE RECORDS SUMMARY | 2024-12-12 11:28 | XMS_ITS | Encounter Summary ---
Author Organization [facility] Address [address] [facility] [place] [place] [address] Care Team Providers Care Trouble Tracer Name Role Phone Emerald Sanchez MD Unavailable Emerald Sanchez MD Primary Care Provider [phone] Encounter Details Date Type Department Care Team (Late st Contact Info) Description 12/12/2022 Orders Only [facility] [address] [facility] 110 [place] [address] A, Unknown Practice [address] [place], [place] [phone] Social History Tobacco Use Types Packs/Day Years [...] EDT Office Visit [facility] NMA POD 368 [place] [address] Milton Duvall, DPM FACFAS 368 [facility] [address] 12/16/2024 9:45 AM EDT Office Visit [facility] [address] [place] 110 [place] [address] Emerald Sanchez MD [address] [place] 110 [place] [address] 12/26/2024 1:20 PM EDT Office Visit [facility] [place] [facility] [address] [facility] 310 [place] [address] Jatin Cabrera MD 3802 [facility] [address] [phone] documented as of this encounter Procedures Procedure [...] on filedocumented in this encounter Care Teams Trouble Tracer Relationship Specialty Start Date End Date Emerald Sanchez MD [address] [facility] 110 [place] [address] PCP - Medical [place] Commercial 10/22/18 04/23/99 Emerald Sanchez MD [address] [facility] 110 [place] [address] PCP - General Family Medicine 08/30/22 documented as of this encounter
--- OUTSIDE RECORDS SUMMARY | 2024-12-12 11:28 | XMS_ITS | Encounter Summary ---
Author Organization [facility] Address [address] [facility] [place] [address] Care Team Providers Care Supervisor Refining Name Role Phone Emerald Sanchez MD Unavailable Emerald Sanchez MD Primary Care Provider [phone] Encounter Details Date Type Department Care Team (Late st Contact Info) Description 06/10/2024 Abstract [facility] [address] [facility] 110 [place] [address] Emerald Sanchez MD [address] [place] 110 [place] [address] Social History Tobacco Use Types Packs/Day Years [...] How often do you attend hoahaoism or buddhism serv ices? Never 05/09/2024 Do you belong [...] and heating? Not hard at all 05/09/2024 [facility] - Occupational Stress Questionnaire Answer [...] Visit [facility] NMA POD 368 [place] [address] Milton Duvall, DPM FACFAS 368 [facility] [place] [address] 12/16/2024 9:45 AM EDT Office Visit [facility] [address] [facility] [facility] 110 [place] [address] Emerald Sanchez MD [address] [facility] 110 [place] [address] 12/26/2024 1:20 PM EDT Office Visit [facility] [address] [facility] 310 [place] [address] Jatin Cabrera MD 5353 [facility] [address] [phone] documented as of this encounter Goals Goal [...] as of this encounter Care Teams Supervisor Refining Relationship Specialty Start Date End Date Emerald Sanchez MD [address] [facility] 110 [place] [address] PCP - Medical [place] Commercial 10/22/18 04/23/99 Emerald Sanchez MD [address] [facility] 110 [place] [address] PCP - General Family Medicine 08/30/22 documented as of this encounter
--- OUTSIDE RECORDS SUMMARY | 2024-12-12 11:28 | XMS_ITS | Encounter Summary ---
Author Organization [facility] Address [address] [facility] [place] [address] Care Team Providers Care Agriculture Worker Name Role Phone Emerald Sanchez MD Unavailable Emerald Sanchez MD Primary Care Provider Encounter Details Date Type Department Care Team (Late st Contact Info) Description 01/09/2024 Abstract [facility] [address] [facility] 110 [place] [address] Emerald Sanchez MD [address] [place] 110 [place] [address] Social History Tobacco Use Types Packs/Day Years [...] and heating? Not hard at all 04/18/2023 [facility] of Occupat ional Health - Occupational Stress [...] a long term (including now)? No 04/18/2023 Comments No Sex [...] Visit [facility] NMA POD 368 [place] [address] Milton Duvall, DPM FACFAS 368 [place] [address] 12/16/2024 9:45 AM EDT Office Visit [facility] [address] [facility] 110 [place] [address] Emerald Sanchez MD [address] [facility] 110 [place] [address] 12/26/2024 1:20 PM EDT Office Visit [facility] [place] [facility] [address] [facility] 310 [place] [address] Jatin Cabrera MD [address] [facility] [address] Simeon [address] [place] [address] [phone] documented as of this encounter Goals Goal [...] documented as of this encounter Care Teams Agriculture Worker Relationship Specialty Start Date End Date Emerald Sanchez MD 112 [facility] 110 [place] [address] PCP - Medical [place] Commercial 10/22/18 04/23/99 Emerald Sanchez MD 112 [facility] 110 [place] [address] PCP - General Family Medicine 08/30/22 documented as of this encounter
--- OUTSIDE RECORDS SUMMARY | 2024-12-12 11:29 | XMS_ITS | Encounter Summary ---
Author Organization [facility] Address [address] [facility] [place] [address] Care Team Providers Care Senior Data Scientist Name Role Phone Emerald Sanchez MD Unavailable Emerald Sanchez MD Primary Care Provider [phone] Encounter Details Date Type Department Care Team (Late st Contact Info) Description 10/23/2023 Abstract [facility] [address] [facility] 110 [place] [address] Emerald Sanchez MD [address] [place] 110 [place] [address] Social History Tobacco Use Types Packs/Day Years [...] often do you attend chur ch or orthodoxy services? Never 04/18/2023 Do you belong to any clubs o r organizations such as jewish groups, unions, fraternal or athletic groups, or [...] EDT Office Visit [facility] NMA POD 368 [place] [address] Milton Duvall, DPM FACFAS 368 [place] [address] 12/16/2024 9:45 AM EDT Office Visit [facility] [address] [facility] 110 [place] [address] Emerald Sanchez MD [address] [facility] 110 [place] [address] 12/26/2024 1:20 PM EDT Office Visit [facility] [place] [facility] [address] [facility] 310 [place] [address] Jatin Cabrera MD [address] [facility] [address]ime[address] [place] [address] [id number] documented as of this encounter Goals Goal [...] documented as of this encounter Care Teams Senior Data Scientist Relationship Specialty Start Date End Date Emerald Sanchez MD 112 [facility] 110 [place] [address] PCP - Medical [place] Commercial 10/22/18 04/23/99 Emerald Sanchez MD 112 [facility] 110 [place] [address] PCP - General Family Medicine 08/30/22 documented as of this encounter
--- OUTSIDE RECORDS SUMMARY | 2024-12-12 11:29 | XMS_ITS | Encounter Summary ---
Author Organization [facility] Address [address] [facility] [place] [address] Care Team Providers Care Media Arts Professor Name Role Phone Emerald Sanchez MD Unavailable Emerald Sanchez MD Primary Care Provider [phone] Encounter Details Date Type Department Care Team (Late st Contact Info) Description 04/09/2024 Orders Only [facility] [address] [facility] [place] [address] Patricia Waldrop MA [address] [place] [address] Social History Tobacco Use Types Packs/Day Years [...] and heating? Not hard at all 04/18/2023 [facility] [place] of Occupat ional Health - Occupational Stress [...] EDT Office Visit [facility] NMA POD 368 [place] [address] Milton Duvall, DPM FACFAS 368 [place] [address] 12/16/2024 9:45 AM EDT Office Visit [facility] Isidro Scott Medince [address] [facility] 110 [place] [address] Emerald Sanchez MD [address] [facility] 110 [place] [address] 12/26/2024 1:20 PM EDT Office Visit [facility] [place] [facility] [address] [facility] 310 [place] [address] Jatin Cabrera MD 8312 [facility] [address] [place] [address] documented as of this encounter Goals [...] Swab Cervical swab / Unknown us Darwin Matty DO LAB CYTOLOGY ORDERABLES Final Re sult EXTERNAL LAB documented in this encounter Visit Diagnoses Not on filedocumented in this encounter Additional Health Concerns Active Problems Noted Date Diagnosed Date Patient on antidepressant monitoring plan 2023 Baseline PHQ-9 05/08/2023 documented as of this encounter Care Teams Media Arts Professor Relationship Specialty Start Date End Date Emerald Sanchez MD 112 [facility] 110 [place] [address] PCP - Medical [place] Commercial 10/22/18 04/23/99 Emerald Sanchez MD 112 [facility] 110 [place] [address] PCP - General Family Medicine 08/30/22 documented as of this encounter
--- OUTSIDE RECORDS SUMMARY | 2024-12-12 11:29 | XMS_ITS | Encounter Summary ---
Author Organization [facility] Address [address] [facility] [place] [address] Care Team Providers Care Lawyer Real Estate Name Role Phone Emerald Sanchez MD Unavailable Emerald Sanchez MD Primary Care Provider [phone] Encounter Details Date Type Department Care Team (Late st Contact Info) Description 04/23/2024 Abstract [facility] [address] [facility] 110 [place] [address] Emerald Sanchez MD [address] [place] 110 [place] [address] Social History Tobacco Use Types Packs/Day Years [...] heating? Not hard at all 04/18/2023 [facility] of Occupat ional Health - Occupational [...] in a half-way (including now)? No 04/18/2023 Comments No Sex [...] EDT Office Visit [facility] NMA POD 368 [place] [address] Milton Duvall, DPM FACFAS 368 [place] [address] 12/16/2024 9:45 AM EDT Office Visit [facility] [address] [facility] 110 [place] [address] Emerald Sanchez MD [address] [facility] 110 [place] [address] 12/26/2024 1:20 PM EDT Office Visit [facility] [place] [facility] [address] [facility] 310 [place] [address] Jatin Cabrera MD [address] Simeon [address] [place] [address] [phone] documented as of this encounter Goals Goal [...] documented as of this encounter Care Teams Lawyer Real Estate Relationship Specialty Start Date End Date Emerald Sanchez MD 112 [facility] 110 [place] [address] PCP - Medical [place] Commercial 10/22/18 04/23/99 Emerald Sanchez MD 112 [facility] 110 [place] [address] PCP - General Family Medicine 08/30/22 documented as of this encounter
--- OUTSIDE RECORDS SUMMARY | 2024-12-12 11:29 | XMS_ITS | Encounter Summary ---
Author Organization [facility] Address [address] [place] [address] Care Team Providers Care Arterial Embalmer Name Role Phone Emerald Sanchez MD Primary Care Provider [phone] Deena Osorio APRN Unavailable [phone] Darwin Starr DO Unavailable [phone] Source Comments In the event this information is protected by the Federal Confidentiality of Alcohol and Drug AbusePatient Records regulations: The Federal rules restrict any use of the information to criminally investigate or prosecute any alcohol or drug abuse patient.[facility] Encounter Details Date Type Department Care Team (Late st Contact Info) Description 03/20/2023 Patient Msg Gastroenterology [address] [place] [address] [place] [address] [place] [address] Appointment Request Social History Tobacco Use Types [...] is lower risk 4 10/17/2022 Data from: https://www.neighborhoodatlas.medicine.[facility].edu/. Last address used for calculation [address] [...] Office Visit Gynecology [address] [place] [address] Emma Ying APRN.PRODUCT APPLICATIONS SCIENTIST [address] [place] [address] Other specified dyspareunia documented as of this encounter Visit Diagnoses Not on filedocumented in this encounter Additional Health Concerns Infection Onset Date Last Indicated Resolved Time C. difficile 05/22/2024 05/22/2024 06/21/2024 8:51 PM EST documented as of this encounter Care Teams Arterial Embalmer Relationship Specialty Start Date End Date Emerald Sanchez MD [address] [facility] 110 [place] [address] PCP - General Family Medicine 03/27/19 Deena Osorio APRN [address] [facility] 110 [place] [address] Referring Family Medicine 04/03/24 Darwin Starr DO [address] [place] [address] [place] [address] Referring Laborer Adjustable Steel Joist 07/02/24 documented as of this encounter
--- OUTSIDE RECORDS SUMMARY | 2024-12-12 11:29 | XMS_ITS | Clinical Summary ---
Author Organization [facility] Address [id number] [address] [place] [address] Care Team Providers Care Meat Cutting Block Repairer Name Role Phone Unavailable Primary Care Provider [...]
--- OUTSIDE RECORDS SUMMARY | 2024-12-12 11:29 | XMS_ITS | Encounter Summary ---
Author Organization [facility] Address [address] [facility] [place] [address] Care Team Providers Care Fruit Or Nut Grower Name Role Phone Emerald Sanchez MD Unavailable Emerald Sanchez MD Primary Care Provider [phone] Encounter Details Date Type Department Care Team (Late st Contact Info) Description 12/19/2023 Abstract [facility] [address] [facility] 110 [place] [address] Emerald Sanchez MD [address] [place] 110 [place] [address] Social History Tobacco Use Types Packs/Day Years [...] heating? Not hard at all 04/18/2023 [facility] - Occupational [...] EDT Office Visit [facility] N[facility] POD [address] [place] [address] Milton Duvall, DPM FACFAS 368 [place] [address] 12/16/2024 9:45 AM EDT Office Visit [facility] [address] [facility] 110 [place] [address] Emerald Sanchez MD [address] [facility] 110 [place] [address] 12/26/2024 1:20 PM EDT Office Visit [facility] [place] [facility] [address] [facility] 310 [place] [address] Jatin Cabrera MD [address] [facility] [address] S[address]on [address] [place] [address] [phone] documented as of this encounter Goals Goal [...] documented as of this encounter Care Teams Fruit Or Nut Grower Relationship Specialty Start Date End Date Emerald Sanchez MD 112 [facility] 110 [place] [address] PCP - Medical [place] Commercial 10/22/18 04/23/99 Emerald Sanchez MD 112 [facility] 110 [place] [address] PCP - General Family Medicine 08/30/22 documented as of this encounter
--- OUTSIDE RECORDS SUMMARY | 2024-12-12 11:29 | XMS_ITS | Encounter Summary ---
Author Organization [facility] Address [address] [facility] [place] [address] Care Team Providers Care Hammer Adjuster Name Role Phone Emerald Sanchez MD Unavailable Emerald Sanchez MD Primary Care Provider [phone] Encounter Details Date Type Department Care Team (Late st Contact Info) Description 04/03/2024 Abstract [facility] [address] [facility] 110 [place] [address] Emerald Sanchez MD [address] [place] [address] [place] [address] Social History Tobacco Use Types Packs/Day Years [...] often do you attend chur ch or catholic services? Never 04/18/2023 Do you belong [...] and heating? Not hard at all 04/18/2023 [facility] [...] EDT Office Visit [facility] N[facility] POD [address] [place] [address] Milton Duvall, DPM FACFAS 368 [place] [address] 12/16/2024 9:45 AM EDT [facility] [address] [facility] 110 [place] [address] Emerald Sanchez MD [address] [facility] 110 [place] [address] 12/26/2024 1:20 PM EDT Office Visit [facility] [place] [facility] [address] [facility] 310 [place] [address] Jatin Cabrera MD [address] [facility] [address] S[address]on [address] [place] [address] [phone] documented as of this encounter Goals Goal [...] documented as of this encounter Care Teams Hammer Adjuster Relationship Specialty Start Date End Date Emerald Sanchez MD 112 [facility] 110 [place] [address] PCP - Medical [place] Commercial 10/22/18 04/23/99 Emerald Sanchez MD 112 [facility] 110 [place] [address] PCP - General Family Medicine 08/30/22 documented as of this encounter
--- OUTSIDE RECORDS SUMMARY | 2024-12-12 11:29 | XMS_ITS | Encounter Summary ---
Author Organization [facility] Address [address] [facility] [place] [address] Care Team Providers Care Seam Closer Name Role Phone Emerald Sanchez MD Unavailable Emerald Sanchez MD Primary Care Provider [phone] Encounter Details Date Type Department Care Team (Late st Contact Info) Description 10/12/2023 Abstract [facility] [address] [facility] 110 [place] [address] Emerald Sanchez MD [address] [place] 110 [place] [address] Social History Tobacco Use Types Packs/Day Years [...] and heating? Not hard at all 04/18/2023 [facility] [...] EDT Office Visit [facility] N[facility] POD [address] [place] [address] Milton Duvall, DPM FACFAS 368 [place] [address] 12/16/2024 9:45 AM EDT Office Visit [facility] [address] [facility] 110 [place] [address] Emerald Sanchez MD [address] [facility] 110 [place] [address] 12/26/2024 1:20 PM EDT Office Visit [facility] [place] [facility] [address] [facility] 310 [place] [address] Jatin Cabrera MD 9487 [facility] [address] Simeon [address] [place] [address] [phone] documented as of this encounter Goals Goal [...] documented as of this encounter Care Teams Seam Closer Relationship Specialty Start Date End Date Emerald Sanchez MD 112 [facility] 110 [place] [address] PCP - Medical [place] Commercial 10/22/18 04/23/99 Emerald Sanchez MD 112 [facility] 110 [place] [address] PCP - General Family Medicine 08/30/22 documented as of this encounter
--- OUTSIDE RECORDS SUMMARY | 2024-12-12 11:29 | XMS_ITS | Encounter Summary ---
Author Organization [facility] Address [address] [place] [address] Care Team Providers Care Product Support Technician Name Role Phone Emerald Sanchez MD Primary Care Provider [phone] Deena Osorio APRN Unavailable [phone] Darwin Starr DO Unavailable [phone] Source Comments In the event this information is protected by the Federal Confidentiality of Alcohol and Drug AbusePatient Records regulations: The Federal rules restrict any use of the information to criminally investigate or prosecute any alcohol or drug abuse patient.[facility] Encounter Details Date Type Department Care Team (Late st Contact Info) Description 08/30/2022 GI Preprocedure Call Ambulatory Surgery [address] [place] [address] [place] [address] [place] [address] Social History Tobacco Use Types Packs/Day Years [...] N ot on file 05/27/2022 Data from: https://www.neighborhoodatlas.medicine.[facility].edu/. Last address used for calculation [address] [...] EDT Office Visit Gynecology [address] [place] [address] Emma Ying APRN.MBA INTERN [address] [place] [address] Other specified dyspareunia documented as of this encounter Visit Diagnoses Not on filedocumented in this encounter Additional Health Concerns Infection Onset Date Last Indicated Resolved Time C. difficile 05/22/2024 05/22/2024 06/21/2024 8:51 PM EST documented as of this encounter Care Teams Product Support Technician Relationship Specialty Start Date End Date Emerald Sanchez MD [address] [facility] 110 [place] [address] PCP - General Family Medicine 03/27/19 Deena Osorio, GEOPHYSICS TEACHER [address] [place] 110 [place] [address] Referring Family Medicine 04/03/24 Darwin Starr DO [address] [place] [address] Dr [place]le [place], [place] [address] Referring Amusement Centre Manager 07/02/24 documented as of this encounter
--- OUTSIDE RECORDS SUMMARY | 2024-12-12 11:29 | XMS_ITS | Encounter Summary ---
Author Organization [facility] Address [address] [facility] [place] [address] Care Team Providers Care Cement Crusher Operator Name Role Phone Emerald Sanchez MD Unavailable Emerald Sanchez MD Primary Care Provider [phone] Encounter Details Date Type Department Care Team (Late st Contact Info) Description 04/10/2024 Abstract [facility] [address] [facility] 110 [place] [address] Emerald Sanchez MD [address] [place] 110 [place] [address] Social History Tobacco Use Types Packs/Day Years [...] often do you attend chur ch or caodaism services? Never 04/18/2023 Do you belong to any clubs o r organizations such as orthodoxy groups, unions, fraternal or athletic groups, or [...] EDT Office Visit [facility] N[facility] POD [address] [place] [address] Milton Duvall, DPM FACFAS 368 [place] [address] 12/16/2024 9:45 AM EDT Office Visit [facility] [facility] [address] [facility] 110 [place] [address] Emerald Sanchez MD [address] [facility] 110 [place] [address] 12/26/2024 1:20 PM EDT Office Visit [facility] [place] [facility] [address] [facility] 310 [place] [address] Jatin Cabrera MD [address] [facility] [address] [place] [address] [phone] documented as of this encounter Goals Goal [...] as of this encounter Care Teams Cement Crusher Operator Relationship Specialty Start Date End Date Emerald Sanchez MD 112 [facility] 110 [place] [address] PCP - Medical [place] Commercial 10/22/18 04/23/99 Emerald Sanchez MD 112 [facility] 110 [place] [address] PCP - General Family Medicine 08/30/22 documented as of this encounter
--- OUTSIDE RECORDS SUMMARY | 2024-12-12 11:29 | XMS_ITS | Encounter Summary ---
Author Organization [facility] Address [address] [facility] [place] [address] Care Team Providers Care Transportation Modeler Name Role Phone Emerald Sanchez MD Unavailable Emerald Sanchez MD Primary Care Provider [phone] Encounter Details Date Type Department Care Team (Late st Contact Info) Description 04/23/2024 Abstract [facility] [address] [facility] 110 [place] [address] Emerald Sanchez MD [address] [place] 110 [place] [address] Social History Tobacco Use Types Packs/Day Years [...] any clubs o r organizations such as jain groups, unions, fraternal or athletic groups, or [...] EDT Office Visit [facility] N[facility] POD [address] [place] [address] Milton Duvall, DPM FACFAS 368 [place] [address] 12/16/2024 9:45 AM EDT Office Visit [facility] [facility] [address] [facility] 110 [place] [address] Emerald Sanchez MD [address] [facility] 110 [place] [address] 12/26/2024 1:20 PM EDT Office Visit [facility] [place] [facility] [address] [facility] 310 [place] [address] Jatin Cabrera MD [address] [facility] [address]on [address] [place] [address] [phone] documented as of this encounter Goals Goal [...] documented as of this encounter Care Teams Transportation Modeler Relationship Specialty Start Date End Date Emerald Sanchez MD 112 [facility] 110 [place] [address] PCP - Medical [place] Commercial 10/22/18 04/23/99 Emerald Sanchez MD 112 [facility] 110 [place] [address] PCP - General Family Medicine 08/30/22 documented as of this encounter
--- OUTSIDE RECORDS SUMMARY | 2024-12-12 11:29 | XMS_ITS | Encounter Summary ---
Author Organization [facility] Address [address] [place] [address] Care Team Providers Care Circuit Designer Name Role Phone Emerald Sanchez MD Primary Care Provider [phone] Deena Osorio APRN Unavailable [phone] Darwin Starr DO Unavailable [phone] Source Comments In the event this information is protected by the Federal Confidentiality of Alcohol and Drug AbusePatient Records regulations: The Federal rules restrict any use of the information to criminally investigate or prosecute any alcohol or drug abuse patient.[facility] Encounter Details Date Type Department Care Team (Late st Contact Info) Description 09/14/2022 Patient Msg Gastroenterology [facility] 107 [place] [address] Provider, [facility] EGG Test Instructions Social History [...] N ot on file 05/27/2022 Data from: https://www.neighborhoodatlas.medicine.[facility].edu/. Last address used for calculation [...] Office Visit Gynecology [address] [place] [address] Emma Ying APRN.WIRE BASKET MAKER [address] [place] [address] Other specified dyspareunia documented as of this encounter Visit Diagnoses Not on filedocumented in this encounter Additional Health Concerns Infection Onset Date Last Indicated Resolved Time C. difficile 05/22/2024 05/22/2024 06/21/2024 8:51 PM EST documented as of this encounter Care Teams Circuit Designer Relationship Specialty Start Date End Date Emerald Sanchez MD [address] [facility] 110 [place] [address] PCP - General Family Medicine 03/27/19 Deena Osorio APRN [address] [facility] 110 [place] [address] Referring Family Medicine 04/03/24 Darwin Starr DO [address] [facility] [place] [address] Referring Aoc Operations Intelligence Chief 07/02/24 documented as of this encounter
--- OUTSIDE RECORDS SUMMARY | 2024-12-12 11:29 | XMS_ITS | Encounter Summary ---
Author Organization [facility] Address [address] [place] [address] Care Team Providers Care Electrical Manufacturing Engineer Name Role Phone Emerald Sanchez MD Primary Care Provider [phone] Deena Osorio LABORATORY DIRECTOR Unavailable [phone] Darwin Starr DO Unavailable [phone] Source Comments In the event this information is protected by the Federal Confidentiality of Alcohol and Drug AbusePatient Records regulations: The Federal rules restrict any use of the information to criminally investigate or prosecute any alcohol or drug abuse patient.[facility] Encounter Details Date Type Department Care Team (Late st Contact Info) Description 07/04/2022 Get Medical Advice Gastroenterology [address] [place] [address] Provider, [facility] Question regarding SURGICAL PATHOLOGY Social [...] ot on file 05/27/2022 Data from: https://www.neighborhoodatlas.[facility]/. Last address used for calculation [...] EDT Office Visit Gynecology [address] [place] [address] Emma Ying APRN.SETTLEMENT PROCESSOR [address] [place] [address] Other specified dyspareunia documented as of this encounter Visit Diagnoses Not on filedocumented in this encounter Additional Health Concerns Infection Onset Date Last Indicated Resolved Time C. difficile 05/22/2024 05/22/2024 06/21/2024 8:51 PM EST documented as of this encounter Care Teams Electrical Manufacturing Engineer Relationship Specialty Start Date End Date Emerald Sanchez MD [address] [address] PCP - General Family Medicine 03/27/19 Deena Osorio APRN [address] [facility] 110 [place] [address] Referring Family Medicine 04/03/24 Darwin Starr DO [address] [facility] [place] [address] Referring Mechanical Handyman 07/02/24 documented as of this encounter
--- OUTSIDE RECORDS SUMMARY | 2024-12-12 11:29 | XMS_ITS | Encounter Summary ---
Author Organization [facility] Address [address] [facility] [place] [address] Care Team Providers Care Web Pressman Name Role Phone Emerald Sanchez MD Unavailable Emerald Sanchez MD Primary Care Provider [phone] Encounter Details Date Type Department Care Team [...] week 04/18/2023 How often do you attend [facility] or confucianist services? Never 04/18/2023 Do you belong to [...] in a fpc (including now)? No 04/18/2023 Comments No Sex [...] EDT Office Visit [facility] NMA POD [address] [place] [address] Milton Duvall, DPM FACFAS 368 [place] [address] 12/16/2024 9:45 AM EDT Office Visit [facility] [address] [facility] 110 [place] [address] Emerald Sanchez MD [address] [facility] 110 [place] [address] 12/26/2024 1:20 PM EDT Office Visit [facility] [place] [facility] [address] [facility] 310 [place] [address] Jatin Cabrera MD [address] [facility] [address] S[address]on [address] [place] [address] documented as of this encounter Goals Goal [...] QTC Calculation(Bazett) : 459 ms Calculated P [place] : 62 degrees Calculated R [place] : 55 degrees Calculated T [place] : 38 degrees NORMAL SINUS RHYTHM NORMAL ECG Confirmed by MD BAH HEBA ([id number]) on 12/30/2023 6:45:12 PM NAME : REJI BARNETTSICA PID : [id number] : 1990 Gender : Female Race : Other ORD : [id number] Procedure Date : Dec 19 2023 13:51:58 Edit Date : Dec 30 2023 18:45:15 Diagnosis: NORMAL SINUS RHYTHM NORMAL ECG Confirmed by MD BAH HEBA ([id number]) on 12/30/2023 6:45:12 PM Test Reason : [...] QTC Calculation(Bazett) : 459 ms Calculated P [place] : 62 degrees Calculated R [place] : 55 degrees Calculated T [place] : 38 degrees NORMAL SINUS RHYTHM NORMAL ECG Confirmed by MD BAH HEBA ([id number]) on 12/30/2023 6:45:12 PM NAME : MEREDITHBELGICA PID : [id number] : 1990 Gender : Female Race : Other ORD : [id number] Procedure Date : Dec 19 2023 13:51:58 Edit Date : Dec 30 2023 18:45:15 Diagnosis: NORMAL SINUS RHYTHM NORMAL ECG Confirmed by MD NIURKA, RACHEL ([id number]) on 12/30/2023 6:45:12 PM Test Reason : Location : 314 : 14 J1-4 Overread By : MD BAH HEBA Edited By : MD BAH HEBA Referred By : , Acquired by : CHELSEY JOSEPH us Generic External Data Provider ECG ORDERABLES F inal Result [facility] documented in this encounter Visit Diagnoses Not on filedocumented in this encounter Additional Health Concerns Active Problems Noted Date Diagnosed Date Patient on antidepressant monitoring plan 2023 Baseline PHQ-9 05/08/2023 documented as of this encounter Care Teams Web Pressman Relationship Specialty Start Date End Date Emerald Sanchez MD [address] [place] [facility] 110 [place] [address] PCP - Medical [place] Commercial 10/22/18 04/23/99 Emerald Sanchez MD 112 [place] [facility] 110 [place] [address] PCP - General Family Medicine 08/30/22 documented as of this encounter
--- OUTSIDE RECORDS SUMMARY | 2024-12-12 11:29 | XMS_ITS | Encounter Summary ---
Author Organization [facility] Address [address] [place] [address] Care Team Providers Care Car Blocker Name Role Phone Emerald Sanchez MD Unavailable Emerald Sanchez MD Primary Care Provider [phone] Encounter Details Date Type Department Care Team (Late st Contact Info) Description 12/12/2023 Orders Only [facility] [address] [place] [address] [place] [address] Unallocated, Noms Provider, [address] [place] [address] Social History Tobacco Use Types Packs/Day Years [...] and heating? Not hard at all 04/18/2023 [facility]at ional Health - [...] EDT Office Visit [facility] NMA POD [address] [place] [address] Milton Duvall, DPM FACFAS 368 [place] [address] 12/16/2024 9:45 AM EDT Office Visit [facility] [address] [facility] 110 [place] [address] Emerald Sanchez MD [address] [facility] 110 [place] [address] 12/26/2024 1:20 PM EDT Office Visit [facility] [place] [facility] [address] [facility] 310 [place] [address] Jatin Cabrera MD 0[address] [facility] [address] [place] [address] [phone] documented as of this encounter Goals Goal [...] documented as of this encounter Care Teams Car Blocker Relationship Specialty Start Date End Date Emerald Sanchez MD 112 [facility] 110 [place] [address] PCP - Medical [place] Commercial 10/22/18 04/23/99 Emerald Sanchez MD 112 [facility] 110 [place] [address] PCP - General Family Medicine 08/30/22 documented as of this encounter
--- OUTSIDE RECORDS SUMMARY | 2024-12-12 11:40 | XMS_ITS | CCD ---
Author Organization [facility] Care Team Providers Care Manager Home Improvement Name Role Phone OZIEL MONTEIRO Referring Unavailable GIOVANI HAGEN Primary Care Unavailable MD Erwin Hylton Attending Provider [phone] MD Giovani Hagen Primary Care Provider [phone] Giovani Hagen Primary Care Provider Erwin Hylton Unavailable GIOVANI HAGEN Primary Care Physician [phone] PAYTONK ., DR SIMON Consulting Unavailabl e [...] HIEU, DR MATUTE Attending Unavailable HIEU, DR MATUET Admitting Unavailable KARASIK ., DR SIMON Consulting [...] Consulting Unavailable MD Erwin Hylton Attending Provider [phone] MD Giovani Hagen Primary Care Provider Giovani Hagen MD Primary Care Provider MARY ANGEL Admitting Unavailable BLOOD, MARY Culver Attending Unavailable JACKSON MONTENEGRO Consulting Unavailable SONIYA PATEL Referring Unavailable HIEU, [facility] Primary Care Unavailable MAKENNA AMAYA Consulting Unavailable [facility] MD [facility] Provider Giovani Hagen MD Unavailable Giovani Hagen MD Primary Care Provider Deena Lyn CNP Unavailable [phone] SOLO MORA Referring Unavailable [facility]IE[facility], [facility] Primary Care Unavailable Matty CASTANEDA, Darwin R Unavailable Madhuri MISHRA Attending Unavailable BHAVESH DEJESUS Attending Unavailable Giovani Hagen MD Primary Care Provider Dank Green MD Admit Provider Dank Green MD Attending Provider [phone] Dank Green Admitting Unavailab Rahul Ugarte Attending Unavailable HieuNikoen Primary Care Unavailable BASVIRGENR, JAVY S Attending Unavailable DARWIN STARR Referring Unavailable HIEU, [facility] Primary Care Unavailable LYDIA KELLEY Attending Unavailab le HIEU, [facility] Primary Care Unavailable ILIANA MERCADO Referring Unavailable HIEU, [facility] Primary Care Unavailable KOCHAR, ARSHNLICHA Referring Unavailable HIEU, [facility] Primary Care Unavailable LYDIA ROCK Attending Unavailable MARIO HARPER Referring Unavailable HIEU, [facility] Primary Care Unavailable SOLO MORA Attending Unavailable HIEU, [facility] Primary Care Unavailable ILIANA MERCADO Attending Unavailable HIEU, [facility] Primary Care Unavailable OBED BHATT Attending Unavailable ILIANA MERCADO Referring Unavailable HIEU, [facility] Primary Care Unavailable BASZENIA, JAVY S Referring Unavailable HIEU, [facility] Primary Care Unavailable ILIANA MERCADO Referring Unavailable HIEU, [facility] Primary Care Unavailable ILIANA MERCADO Referring Unavailable HIEU, [facility] Primary [facility] Primary Care Unavailable KOCHAR, ARSHNEEL Referring Unavailable [facility] Primary Care Unavailable MARIO HARPER Referring Unavailable [facility] Primary Care Unavailable KOCHAR, ARSHNEEL Referring Unavailable [facility] Primary Care Unavailable ANAARPONCHOL Attending Unavailable KOCHAR, ARSHNEEL Referring Unavailable HIEU, [facility] Primary Care Unavailable MARIO HARPER Attending Unavailable DAKHIL, NOMEleuterio Referring Unavailable HIEU, [facility] Primary Care Unavailable MARIO HARPER Attending Unavailable [facility] Primary Care Unavailable MARIO HARPER Referring Unavailable HIEU, [facility] Primary Care Unavailable [facility] Primary Care Unavailable ILIANA MERCADO Referring Unavailable DOLCE, MILTON Roth Attending Unavailable DOLCE, MILTON Roth Referring Unavailable POPPYAYLEEN Attending Unavailable HIEU, RUGEN M Attending Unavailable PRATEEK PEDRAZA Attending Unavailable MATTYDARWIN TRINH Attending Unavailable DOLCE, MILTON Roth Attending Unavailable DOLCE, MILTON Roth Attending Unavailable DOLCE, MILTON Roth Referring Unavailable HIEU, GIOVANI Bob Attending Unavailable DOLCE, MILTON Roth Attending Unavailable HIEU, GIOVANI Bob Attending Unavailable DOLCE, MILTON Roth Attending Unavailable DOLCE, MILTON Roth Attending Unavailable HIEU, GIOVANI M Attending Unavailable DOLCE, MILTON Roth Attending Unavailable HIEU, RUGEN M Attending Unavailable HEMMERSANDY Attending Unavailable RIKI, DEENA Bob Attending Unavailable RIKI, DEENA Bob Attending Unavailable SHANNON DARDEN Attending Unavailab le HIEU, RUGEN M Attending Unavailable HIEU, RUGEN M Attending Unavailable MATTYDARWIN Attending Unavailable DESHAUNTONZHEN Attending Unavailable HIEU, RUGEN M Referring Unavailable HIEU, RUGEN M Attending Unavailable ARUN HERNADEZ Attending Unavailable HIEU, RUGEN M Referring Unavailable ZHEN BURGESS Attending Unavailable HIEU, RUGEN M Referring Unavailable BRINKARUN Attending Unavailable HIEU, RUGEN M Referring Unavailable KELBLEYANITRA Attending Unavailable HIEU, RUGEN M Referring Unavailable KELBLEYANITRA Attending Unavailable HIEU, RUGEN M Referring Unavailable BRINK, ARUN Attending Unavailable HIEU, RUGEN M Referring Unavailable BRINK, ARUN Attending Unavailable HIEU, RUGEN M Referring Unavailable KELBLEY, ANITRA Attending Unavailable HIEU, RUGEN M Referring Unavailable MATTYDARWIN Attending Unavailable ZHEN BURGESS Attending Unavailable HIEU, RUGEN M Referring Unavailable HIEU, RUGEN M Attending Unavailable RIKIDEENA Attending Unavailable HIEU, RUGEN M Attending Unavailable JOSEPHINE GILMAN Attending Unavailable MATTYDARWIN TRINH Attending Unavailable PRATEEK PEDRAZA Attending Unavailable HIEU, RUGEN M Referring Unavailable HIEU, RUGEN M Attending Unavailable Allergies Allergy Classification Reported Allergen(s) Allergy Type Date of Onset Reaction(s) Facility Iodine (and Iodine containting drugs) (2 sources) Iodine Drug Allergy 04-11-20 19 Swelling, Itching [facility] Iohexol (2 sources) Iohexol Drug Allergy 04-12-20 19 Itching [facility] (20 sources) Iodine; Translations: [IODINE] Drug Allergy 04-11-20 Swelling, Itching [facility] (20 sources) Iohexol; Translations: [IOHEXOL] Drug Allergy 04-12-20 Itching [facility] (1 source) Cat Propensity to adverse reactions anaphylaxis [facility] Other (14 sources) tree nut, unspecified; Translations: [TREE NUTS] Propensity to adverse reactions 07-11-19 anaphylaxis [facility] Other (1 source) peanut allergenic extract Drug Allergy [facility] Repository (1 source) Cat/Feline Product Derivatives Drug allergy (disorder) 01-08-20 13 [facility] Repository (20 sources) Cat Hair Extract Allergy to substance 12-01-19 Anaphylaxis [facility] (20 sources) Iodinated Contrast Media; Translations: [IODINATED CONTRAST MEDIA] Drug Allergy 04-12-20 Hives, Anaphylaxis, Itching [facility] (20 sources) Prednisone & Diphenhydramine Drug Allergy 10-03-19 [facility] (14 sources) Cat Dander; Translations: [cat dander] Drug Allergy 05-03-19 Anaphylaxis [facility] (1 source) No Known Medication Allergies; Translations: [No Known Medication Allergies] Propensity to adverse reactions (disorder) [facility] Repository (1 source) tree nut, unspecified Drug allergy (disorder) 05-03-19 23 [facility] Repository Medications Current Medications Medication Drug [...] every four hours as needed HYDROcodone-acetami nophen (Channing) 5-325 MG tablet Take 1 tablet by mouth every 4 (four) hours if needed 09/06/2024 09/17/2024 Discontinued (Therapy completed) Start: 05-09-2024 End: 05-14-2024 take 1 tablet by mouth every six hours for pain HYDROcodone-acetaminophen (Channing) 5-325 MG tablet Indications: Cervical radiculopathy due to degenerative joint disease of spine Take 1 tablet by mouth every 6 (six) hours if needed for severe pain for up to 5 days 20 tablet 05/09/2024 05/14/2024 Active Start: 04-16-2024 End: 04-21-2024 take 1 tablet by mouth every six hours for pain HYDROcodone-acetaminophen (Channing) 5-325 MG tablet Indications: Sprain of anterior talofibular ligament of right ankle, subsequent encounter Take 1 tablet by mouth every 6 (six) hours if needed for severe pain for up to 5 days 20 tablet 04/16/2024 04/21/2024 [id number] actuat albuterol 0.09 mg/actuat metered dose [...] August 16, 2024 12:00am Start: 07-16-2024 End: 12-12-2024 take 1 capsule by mouth every twenty-four [...] with the 30mg tablet. 30 capsule 10/08/2024 12/12/2024 Discontinued (Therapy completed) Start: 07-16-2024 End: 12-12-2024 take 1 capsule by mouth once daily amphetamine-dextroamphetamine XR (Addera ll XR) 30 MG 24 hr capsule Indications: Attention deficit hyperactivity disorder (ADHD), predominantly inattentive type Take 1 capsule (30 mg) by mouth Daily Do not crush or chew. Take with the 10mg daily 30 capsule 10/08/2024 12/12/2024 Discontinued (Therapy completed) Start: 06-06-2024 End: 07-06-2024 take 1 capsule [...] capsules by mouth at bedtime Bis Subcit Vla-Lytjd-Fzcfajgk (PYLERA) 140-125-125 mg per capsule Take 3 [...] (500 mg) before bedtime. 20 capsule 10/08/2024 12/12/2024 Discontinued (Other) Start: 08-17-2024 End: 09-02-2024 cephalexin (Keflex) 250 [...] UTI, # 20 cap(s), Refills(s) 2, Pharmacy: [facility]/pharmacy #[id number], 158, cm, 12/28/23 15:24:00 EDT, [...] days., # 50 cap(s), Refills(s) 0, Pharmacy: [facility]/pharmacy #[id number], 158, cm, 06/29/22 8:19:00 EST, [...] capsule (20 sources) Tricyclic Antidepressant Start: 10-03-2024 End: 12-12-2024 take 1 capsule by mouth at bedtime clomiPRAMINE (Anafranil) 50 MG capsule Indications: Anxiety , Trichotillomania TAKE 1 CAPSULE BY MOUTH AT BEDTIME 30 capsule 6 10/03/2024 12/12/2024 Discontinued (Other) Start: 08-01-2024 End: 09-02-2024 take 1 capsule [...] 2024 11:35am clonazePAM 0.5 mg oral tablet (6 sources) Benzodiazepine Start: 04-01-2024 End: 12-12-2024 take 1 tablet by mouth in the morning clonazePAM (KlonoPIN) 0.5 MG tablet Indications: Tremors of nervous system Take 1 tablet (0.5 mg) by mouth in the morning and 1 tablet (0.5 mg) before bedtime. 60 tablet 04/01/2024 05/01/2024 Active cloNIDine hydrochloride 0.1 mg oral tablet (20 sources) Central alpha-2 Adrenergic Agonist cloNIDine (Catapres) 0.1 MG tablet 1 (one) time each day at the same time Active dicyclomine hydrochloride 10 mg oral capsule (13 sources) Anticholinergic Start: 09-26-2024 End: 09-26-2025 take 2 capsules by mouth three times daily as needed dicyclomine (Bentyl) 10 MG capsule Indications: Cramp, abdominal Take 2 capsules (20 mg) by mouth 3 (three) times a day as needed (cramping) 240 capsule 11 09/26/2024 12/12/2024 Discontinued (Other) escitalopram 20 mg oral tablet (20 sources) [...] take 1 puff(s) by inhalation once daily Tfxswgzvbxr-Tsgixiekr-Qsgtrg (Trelegy Ellipta) 100-62.5-25 MCG/ACT aerosol powder Indications: Moderate persistent asthmatic bronchitis with acute exacerbation (HCC) INHALE 1 PUFF DAILY 60 each 2 09/03/2024 Active Start: 04-16-2024 End: 06-25-2024 take 1 puff(s) by inhalation once daily Roayuocpqwe-Jamdgyucf-Wktynh 100-62.5-25 MCG/ACT aerosol powder Indications: Moderate persistent asthmatic bronchitis with acute exacerbation (CMS/HCC) Inhale 1 puff Daily 1 each 04/16/2024 06/25/2024 Discontinued Start: 05-24-2022 take 1 puff(s) by inhalation once daily Xhlcrqjibrq-Zfezzowhn-Dxlavd 100-62.5-25 MCG/ACT aerosol powder INHALE 1 PUFF [...] 2 5 E n d : 0 8 - 2 1 - 2 0 2 5 hydrocortisone (Anusol-HC) 2 5 MG suppository UNWRAP AND INSERT 1 SUPPOSITORY RECTALLY EVERY 12 HOURS NEEDED FOR HEMORRHOIDS 07/08/2024 12/12/2024 Discontinued (Other) hydrOXYzine pamoate 25 mg or al capsule (12 sources) Antihistamine S t a r t : 0 3 - 1 3 - 2 0 2 5 E n d : 0 3 - 2 3 - 2 0 2 5 take 1 capsule by mouth every six hours hydrOXYzine pamoate (Vistaril) 25 MG capsule Indications: Anxiety , PTSD (post-traumatic stress disorder) (CMS/FORMERLY [facility]) Take 1 capsule (25 mg) [...] 04/01/2025 Active OXcarbazepine 300 mg oral tablet (8 sources) Anti-epileptic Agent Start: 10-10-2024 End: 11-16-2024 take 0.5 tablet by mouth at bedtime, then take 1 tablet by mouth at bedtime OXcarbazepine (Trileptal) 300 MG tablet Indications: Numbness and tingling , Atypical migraine Take 0.5 tablets (150 mg) by mouth at bedtime for 7 days, THEN 1 tablet (300 mg) at bedtime. 34 tablet 11 10/10/2024 Active phentermine hydrochloride 37.5 mg oral tablet [...] Take before meals. 30 tablet 04/30/2024 Active prazosin 2 mg oral capsule (2 sources) alpha-Adrenergic Taylor take 1 capsule by mouth in the morning, then take 1 capsule by mouth in the evening, then take 1 capsule by mouth at bedtime prazosin (Minipress) 2 MG capsule Take 2 mg by mouth in the morning and 2 mg in the evening and 2 mg before bedtime. Active predniSONE 10 mg oral tablet (20 sources) Start: 10-09-19 End: 10-25-19 take 4 tablets by mouth once daily, [...] Discontinued propranolol hydrochloride 10 mg oral tablet (8 sources) beta-Adrenergic Taylor Start: 09-30-2024 propranolol (Inderal) 10 MG tablet every 12 (twelve) hours 09/30/2024 Active 24 hr QUEtiapine 50 mg extended release oral tablet (19 sources) Atypical Antipsychotic Start: 09-13-2024 End: 12-12-2024 take 1 tablet by mouth every twenty-four hours at bedtime QUEtiapine XR (SEROquel XR) 50 MG 24 hr tablet Take 50 mg by mouth at bedtime 09/13/2024 12/12/2024 Discontinued (Other) radiopaque pvc markers-barium sulfate (SITZMARKS) 24 Markers (1 source) Start: 10-09-2024 End: 10-09-2024 take 2 capsules by mouth once radiopaque pvc markers-barium sulfate (SITZMARKS) 24 Markers Take 2 capsules by mouth one time only for 1 dose. Take 2 capsules as directed. 2 capsule 10/09/2024 10/09/2024 Active tiZANidine 4 mg oral tablet (20 sources) Central alpha-2 Adrenergic Agonist Start: 07-24-2024 End: 12-12-2024 take 1 tablet by mouth every six hours for muscle spasms tiZANidine (Zanaflex) 4 MG tablet Indications: Peroneal tendon tear, right, initial encounter Take 1 tablet (4 mg) by mouth every 6 (six) hours if needed for muscle spasms for up to 10 days 30 tablet 07/24/2024 12/12/2024 Discontinued (Ineffective) traMADol hydrochloride 50 mg oral tablet (8 [...] gamma-Aminobutyric Acid-ergic Agonist Start: 12-26-19 End: 05-09-19 take 1 tablet by mouth in the [...] 01/22/2024 Discontinued citalopram 10 mg oral tablet (16 sources) Serotonin Reuptake Inhibitor Start: 08-19-2024 End: [...] (twelve) hours 03/19/2024 05/09/2024 Discontinued (Other) Doxepin (18 sources) Tricyclic Antidepressant Start: 12-07-2021 End: 11-02-2022 doxepin HCl (DOXEPIN ORAL) 12/07/2021 11/02/2022 Discontinued Start: 12-07-2021 End: 11-02-2022 doxepin HCl (DOXEPIN ORAL) Start: 12-07-2021 doxepin HCl (D OXEPIN ORAL) take 1 capsule by mo uth at bedtime doxepin (SINEquan) 50 MG capsule Take 50 mg by mouth at bedtime Active doxycycline hyclate 100 mg oral capsule (13 [...] Discontinued EpiPen prn Activ e estrogens, conjugated (fpc) 0.625 mg/ml vaginal cream (20 sources) Estrogen [...] 12/19/2023 Discontinued (Other) take [address] [facility] every twenty-four hours Vyvanse 50 [...] on above: TAKE 1 CAPSULE BY [facility] EVERY DAY IN THE MORNING FOR [...] [Alcohol withdrawal delirium] Onset: 5 09-02-2024 Chronic Anal and rectal conditions (2 sources) Rectal [...] predominantly inattentive type] Onset: 3 09-23-2022 Chronic Calculus of urinary tract (20 sources) Kidney stone; Translations: [Calculus of kidney] Onset: 3 06-29-2022 Episodic Complications of surgical procedures or medical care (17 sources) Surgical wound finding; Translations: [Disruption of external operation (surgical) wound, not elsewhere classified, sequela] Onset: 5 09-25-2024 Episodic Coronary atherosclerosis and other heart disease (20 sources) Atherosclerosis of coronary artery without angina pectoris; Translations: [Atherosclerotic heart disease of [place] coronary artery without angina pectoris] Onset: 2 [...] 5 09-02-2024 Chronic Fluid and electrolyte disorders (4 sources) Hypokalemia; Translations: [Hypokalemia] 04-03-2024 Episodic Gastroduodenal [...] Trichotillomania; 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] Onset: 5 07-04-2024 Chronic Malaise and fatigue (2 sources) Fatigue; Translations: [Other fatigue] 12-12-2024 Episodic Miscellaneous mental health disorders (20 sources) [...] foot] 05-15-2024 Episodic Other connective tissue disease (16 sources) Pelvic floor dysfunction; Translations: [Other specified [...] diseases of liver Chronic Other liver diseases (20 sources) Elevated liver enzymes level; Translations: [Abnormal levels of other serum enzymes] Onset: 3 09-23-2022 Episodic Other liver diseases (5 sources) Abnormal levels of other serum enzymes; Translations: [ABNORMAL LEVELS OTHER SERUM ENZYMES] Onset: 3 Episodic Other lower respiratory disease (2 sources) Dyspnea; Translations: [Shortness of breath] Episodic Other nervous system disorders (20 sources) Poor concentration; Translations: [Attention and concentration deficit] Onset: 3 09-23-2022 Chronic Other nervous system disorders (2 sources) Chronic pain; Translations: [Other chronic pain] 12-12-2024 Chronic Other nervous system disorders (4 sources) [...] Translations: [Obesity, unspecified] Onset: 4 02-06-2024 Chronic Other nutritional; endocrine; and metabolic disorders (5 sources) Nephrocalcinosis; Translations: [Other disorders of calcium metabolism] Onset: 5 12-12-2024 Chronic Other nutritional; endocrine; and metabolic disorders (20 sources) Weight increased; Translations: [Abnormal weight gain] Onset: 4 10-03-2023 Episodic Ovarian cyst (11 sources) Other ovarian cyst, unspecified side; Translations: [Unspecified ovarian cyst, right side] Onset: 2 Episodic Peripheral and visceral atherosclerosis (20 sources) Atherosclerosis of aorta; Translations: [Atherosclerosis of aorta] Onset: 1 12-12-2022 Chronic Spondylosis; intervertebral disc disorders; other back problems (20 sources) Inflammation of sacroiliac joint; Translations: [Sacroiliitis, not elsewhere classified] Onset: 3 09-23-2022 Chronic Spondylosis; intervertebral disc disorders; other back problems (20 sources) Cervical radiculopathy; Translations: [Radiculopathy, cervical region] Onset: 3 Resolved: 3 12-26-2023 Episodic Superficial injury; contusion (2 sources) Contusion [...] Translations: [Unspecified abdominal pain] Onset: 2 Episodic Alcohol-related disorders (20 sources) Alcohol use, unspecified with alcohol-induced psychotic disorder, unspecified; Translations: [Unspecified alcohol-induced mental disorders] Onset: 5 09-02-2024 Episodic Allergic reactions (20 sources) Anaphylaxis; Translations: [Anaphylactic shock, unspecified, initial encounter] Onset: 3 04-18-2023 Episodic Biliary tract disease (20 sources) Cholelithiasis without obstruction; Translations: [Calculus of gallbladder without cholecystitis without obstruction] Onset: 3 04-18-2023 Episodic Cardiac dysrhythmias (20 sources) Palpitations; Translations: [Palpitations] Onset: 5 08-26-2024 Episodic Conditions associated with dizziness or vertigo (20 sources) Dizziness; Translations: [Dizziness and giddiness] Onset: 3 12-13-2022 Episodic E Codes: Fall (20 sources) Unspecified fall, initial encounter; Translations: [Fall in home] Onset: 2 09-10-2024 Episodic Gastrointestinal hemorrhage (3 sources) Gastrointestinal hemorrhage; [...] lability] Onset: 3 09-23-2022 Episodic Mood disorders (12 sources) Mood disorders Onset: 5 10-08-2024 Mycoses (20 sources) Dermatophytosis; Translations: [Dermatophytosis, unspecified] Onset: 4 10-03-2023 Episodic Open wounds of extremities (20 sources) Laceration of right knee; Translations: [Laceration without foreign body, right knee, subsequent encounter] Onset: 5 Resolved: 5 09-10-2024 Episodic Open wounds of extremities (20 sources) Laceration of left knee; Translations: [Laceration without foreign body, left knee, sequela] Onset: 5 Resolved: 5 09-10-2024 Episodic Other aftercare (20 sources) Postoperative visit; Translations: [Encounter for other specified surgical aftercare] Onset: 3 Resolved: 5 04-18-2023 Episodic Other circulatory disease (20 sources) [...] of right ankle, subsequent encounter] Onset: 4 Resolved: 5 02-06-2024 Episodic Other lower respiratory disease (20 sources) [...] sinusitis] Onset: 3 Resolved: 3 02-06-2023 Chronic Pancreatic disorders (not diabetes) (20 sources) Biliary [...] Translations: [Localized edema] Onset: 4 02-06-2024 Episodic Sprains and strains (20 sources) Sprain of talofibular ligament of right ankle; Translations: [Sprain of other ligament of right ankle, initial encounter] Onset: 4 Resolved: 5 04-01-2024 Episodic Substance-related disorders (20 sources) Smoker; [...] Panel InformationOrdered By: Radiologist Radiology on 10-23-2024 [facility] Work Phone: No Panel Informationon 10-23 Radiology Study observation (narrative) [facility] XR ABDOMEN 1V SUPINEon 10-23 * * [...] No radiopaque markers are noted in the demgw-yx-aoyu. IMPRESSION: 0 Sitzmarks markers. The previously noted [...] any questions regarding this interpretation, please call [phone]. If you are unable to reach us at the number above, please feel free to contact [facility] at [phone]. [id number]^[email or web address]^SI ^[facility]N [facility], Radiologist, - 10/23/2024 * * *Final [...] No radiopaque markers are noted in the jfovr-mm-tzao. IMPRESSION: 0 Sitzmarks markers. The previously noted [...] any questions regarding this interpretation, please call [phone]. If you are unable to reach us at the number above, please feel free to contact [facility] at [phone]. [id number]^[email or web address]^SI ^ACN [facility] XR ABDOMEN 1V SUPINE * * *Final [...] No radiopaque markers are noted in the ikmeo-bh-jpqs. IMPRESSION: 0 Sitzmarks markers. The previously noted [...] any questions regarding this interpretation, please call [phone]. If you are unable to reach us at the number above, please feel free to contact [facility]Radiology at [phone]. [id number] N Normal [facility] XR Abdomen Supine and Uprigh ton 10-23-2024 [...] any questions regarding this interpretation, please call [phone]. If you are unable to reach us at the number above, please feel free to contact [facility] at [phone]. DIVISION OF RADIOLOGY * * *Final Report* [...] No radiopaque markers are noted in the mbwfe-aj-nfsu. DIVISION OF RADIOLOGY Provider, [facility] - 10/23/2024 * * *Final Report* * [...] No radiopaque markers are noted in the ttwwt-xn-levo. IMPRESSION IMPRESSION: 0 Sitzmarks markers. The previously [...] any questions regarding this interpretation, please call [phone]. If you are unable to reach us at the number above, please feel free to contact [facility] at [phone]. [facility] MRI HEAD/BRAIN WO/W CONTRon 10-21-2024 [place] [address] Magnetic Resonance Report Signed Patient: ORION HARPER MR#: [id number] : 1990 Acct:[id number] Age/Sex: 34 / F ADM Date: 10/21/24 Loc: MRI Attending Dr: SHANNON DARDEN Ordering Physician: SHANNON DARDEN Date of Service: 10/21/24 Procedure(s): MR head/brain wo/w con Accession Number(s): [id number] cc: GIOVANI HAGEN ; SHANNON DARDEN [place] [address] Patient Name: ORION HARPER MRN: [facility]:[id number] date: 1990 Sex: F Assigned Patient Location: MRI Current Patient Location: MRI Accession/Order Number: [id number] Exam Date: 10/21/2024 11:17 Report Date: 10/21/2024 [...] Knight M.D. 10/21/2024 11:39 AM Dictation Location: [place] [address] Electronically authenticated by: [id number] Y Date: 10/21/2024 11:39 Dictated By: Sandy Knight M.D. Signed By: 10/21/24 1142 DD/ 1139 TD/TT: Supervisor Toy Assembly: [facility] Radiology, Radiologist, MD - 10/21/2024 [place] [address] Magnetic Resonance Report Signed Patient: ORION HARPER MR#: [id number] : 1990 Acct:[id number] Age/Sex: 34 / F ADM Date: 10/21/24 Loc: MRI Attending Dr: SHANNON DARDEN Ordering Physician: SHANNON DARDEN Date of Service: 10/21/24 Procedure(s): MR head/brain wo/w con Accession Number(s): [id number] cc: GIOVANI HAGEN ; SHANNON DARDEN [place] [id number] Patient Name: ORION HARPER MRN: [facility]:[id number] date: 1990 Sex: F Assigned Patient Location: MRI Current Patient Location: MRI Accession/Order Number: [id number] Exam Date: 10/21/2024 11:17 Report Date: 10/21/2024 [...] Knight M.D. 10/21/2024 11:39 AM Dictation Location: [place] [address] Electronically authenticated by: [id number] Y Date: 10/21/2024 11:39 Dictated By: Sandy Knight M.D. Signed By: 10/21/24 1142 DD/ 1139 TD/TT: Supervisor Toy Assembly: [facility] Radiology Study observation (narrative) [facility] MRI HEAD/BRAIN WO/W CONTROrd ered By: Radiologist Radiology on 10-21-2024 [facility] Work Phone: XR ABDOMEN 1V SUPINEon 10-21 [...] Sitzmarks markers. IMPRESSION: Sitzmarks markers as described. Supervisor Toy Assembly: MINAL Transcribe Date/Time: Oct 28 2024 9:07A Dictated by : ANNITA STILL MD This examination was interpreted and the report reviewed and electronically signed by: ANNITA STILL MD on Oct 28 2024 9:08AM EST [id number] N [facility] [id number] 10-11-2024 [id number] HNO ID: [id number] Author: LYDIA ROCK PT, DPT Service: ? Author Type: Physical Therapist Type: [id number] Filed: 10/11/2024 15:55 Note Text: [facility] Therapy Physical Therapy Plan of Care Certification Patient Name: Orion Harper : 1990 [facility] #: [id number] Date: 10/11/2024 To: Mario Harper APRN* From Therapist: Lydia Rock PT, DPT RE: Patient Certification/ Recertification Your review, approval and electronic signature are required in order to comply with Payor: MMO / Plan: MMO [facility] PPO / Product Type: PPO / regulations. [...] Planned: 4 Planned Treatment Interventions: Therapeutic exercise (56088), Neuromuscular re-education (37390), Manual therapy (68827), Therapeutic activities (02443), Self-assisted management (16757), Patient/Family/Caregi nataliia Education, Body Mechanics Training PLAN [...] have reviewed the treatment plan for Orion Mcclellan Meredith, [facility]# [id number] for the period of 10/11/24 -- 01/09/25, established on 10/11/2024. Signature certifies the need for therapy services. Normal [facility] CNTHERAPYon 10-11-2024 CNTHERAPY OT/PT/Speech Visit (PTCORD) ORION HARPER ([id number]) 1990 F Date Time Provider Department 10/11/24 2:45 PM LYDIA ROCK Date Time Provider Department Center 10/11/2024 2:45 PM [id number] ROCK [facility] Reason for Visit: PT Eval [747] Primary [...] Date Reviewed: 10/09/2024 Reviewed by: Mario Harper APRN.ACCOUNT PROCESSOR - Fully Assessed Prescriptions as of 10/11/2024 [...] 4.5 mg by mouth once daily. Normal [facility] CNOVon 10-09-2024 CNOV Office Visit ([facility] ) ORION HARPER ([id number]) 1990 F Date Time Provider Department 10/09/24 1:00 PM MARIO HARPER [facility] During your visit today, we recorded the [...] for internal providers or letter via the [employer] for external providers. Recording using Ridango software for draft documentation of the visit was discussed with the patient/authorized b2b sales representative; all questions welcomed and answered. Patient/authorized b2b sales representative agreed to proceed Chief Complaint: hemorrhoids, [...] pt complaine (more content not included)... Normal [facility] ([id number]) 1990 F Date Time Provider Department 10/01/24 CAROL WINN During your visit today, we recorded the following information about you: GonzalezKamryn pattersonan 10/01/2024 3:07 PM Signed Pt called in stating she was told to make an appt with colorectal surgery back in July. She finally got a chance to call and they told her she needs a referral put in before she can make an appt. Please add referral and advise pt. Connie Lucas, RN 10/01/2024 3:36 PM Addendum Iliana, Pt [...] ago (4:00 PM) LY Signed thank you Acacia Gonzalez 10/02/2024 3:09 PM Signed Called pt and let her know referral was in. Pt was calling [facility] to schedule Allergies As of Date: 10/01/2024 [...] Order(s):CONSULT TO COLO-RECTAL SURGERY [] Order #: [id number]: 1 FUTURE Prescriptions as of 10/02/2024 - [...] Status:Closed by ILIANA MERCADO on 10/01/24 Normal [facility] Cholesterol [Mass/volume] in Serum or PlasmaOrdered By: Dank Green on 08-17-2024 Cholesterol [Mass/Vol] Cholesterol [Mass/volume] in Serum or Plasma 140-200 [facility] Comment on above: Chol less than 200 m g/dl low riskChol 201-239 mg/dl borderline riskChol 240 mg/dl and greater high risk Cholesterol in HDL [Mass/vol ume] in Serum or PlasmaOrdered By: Dakn Green on 08-17-2024 Cholesterol in HDL [Mass/Vol] Serum or plasma high density lipoprotein (HDL) cholesterol measurement 23-92 [facility] Comment on above: HDL CHOL ATP-III CLA SSIFICATION Cardiovascular RiskHDL > or equal to 60 mg/dL LOWHDL < 40 mg/dL HIGH Cholesterol in LDL Calc [Mas s/Vol]Ordered By: Dank Green on 08-17-2024 Cholesterol in LDL [Mass/Vol] Cholesterol in LDL [Mass/volume] in Serum or Plasma by calculation High 0-100 [facility] Comment on above: LDL ATP III CLASSIFI CATIONLDL less than 100 mg/dL OptimalLDL 100-129 mg/dL Near or above optimalLDL 130-159 mg/dL Borderline highLDL 160-189 mg/dL HighLDL greater than 189 mg/dL Very high Cholesterol in VLDL Calc [Ma ss/Vol]Ordered By: Dank Green on 08-17-2024 Cholesterol in VLDL [Mass/Vol] Cholesterol in VLDL [Mass/volume] in Serum or Plasma by calculation [facility] Lipid Panelon 08-17-2024 Cholesterol [Mass/Vol] 183 mg/dL Normal 140-200 [facility] Comment on above: Result Comment: Chol less than 200 mg/dl low risk Chol 201-239 mg/dl borderline risk Chol 240 mg/dl and greater high risk Performed By: #### T SH3 wRFLX, LIPID, [id number] #### [facility] [address] Cholesterol in HDL [Mass/Vol] 59 mg/dL Normal 23-92 [facility] Comment on above: Result Comment: HDL CHOL ATP-III CLASSIFICATION Cardiovascular Risk HDL > or equal to 60 mg/dL LOW HDL < 40 mg/dL HIGH Performed By: #### T SH3 wRFLX, LIPID, [id number] #### [facility] [address] Cholesterol.total/Chol esterol in HDL [Mass ratio] 3.1 {ratio} Normal <5.0 [facility] Comment on above: Performed By: #### T SH3 wRFLX, LIPID, [id number] #### [facility] [address] [place] [id number] [facility] LDL Cholesterol,Calculated 101 mg/dL High 0-100 [facility] Comment on above: Result Comment: LDL ATP III CLASSIFICATION LDL less than 100 mg/dL Optimal LDL 100-129 mg/dL Near or above optimal LDL 130-159 mg/dL Borderline high LDL 160-189 mg/dL High LDL greater than 189 mg/dL Very high Performed By: #### T SH3 wRFLX, LIPID, [id number] #### [facility] [address] [place] [id number] [place] Triglyceride w/Reflex 113 mg/dL Normal 0-149 [facility] Comment on above: Result Comment: TRIG ATP III CLASSIFICATION TRIG less than 150 mg/dL Normal TRIG 150-199 mg/dL Borderline high TRIG 200-500 mg/dL High TRIG greater than 500 mg/dL Very high Standard traceable to the Center for Disease Conrtrol and Prevention (CDC) test method. Performed By: #### T SH3 wRFLX, LIPID, [id number] #### [facility] [address] VLDL CHOLESTEROL 22 mg/dL Normal [facility] Comment on above: Performed By: #### T SH3 wRFLX, LIPID, [id number] #### [facility] [address] Serum or plasma total choles terol/high density lipoprotein (HDL) cholesterol mass ratOrdered By: Dank Green on 08-17-2024 Cholesterol.total/Chol esterol in HDL [Mass ratio] Serum or plasma total cholesterol/high density lipoprotein (HDL) cholesterol mass rat <5.0 [facility] Thyroid Stim Hormone w/Rflxo n 08-17-2024 Thyroid Stim Hormone w/Rflx 3.84 u[iU]/mL Normal 0.45-5.33 [facility] Comment on above: Performed By: #### T SH3 wRFLX, LIPID, [id number] #### [facility] [address] Thyrotropin [Units/volume] i n Serum or PlasmaOrdered By: Dank Green on 08-17-2024 TSH Qn Thyrotropin [Units/volume] in Serum or Plasma 0.45-5.33 [facility] Triglyceride [Mass/volume] i n Serum or PlasmaOrdered By: Dank Green on 08-17-2024 Triglyceride [Mass/Vol] Triglyceride [Mass/volume] in Serum or Plasma 0-149 [facility] Comment on above: TRIG ATP III CLASSIF ICATIONTRIG less than 150 mg/dL NormalTRIG 150-199 mg/dL Borderline highTRIG 200-500 mg/dL High TRIG greater than 500 mg/dL Very highStandard traceable to the Center for Disease Conrtrol and Prevention (CDC) test method. Vitamin D 25 Hydroxy Totalon 08-17-2024 Vitamin D 25 Hydroxy Total 13.6 ng/mL Low 30-100 [facility] Comment on above: Result Comment: MAYA MIN D STATUS 25(OH)VITAMIN D RANGE (ng/mL) Deficient <20 Insufficient 20 to <30 Sufficient 30 to 100 Reference: Cheyanne Valle, Elio MELVIN, et al. Evaluation,treatment, and prevention of vitamin D deficiency; an Endocrine Society clinical practice guideline. JCEM. 2010; 96(7):1911-30. PERFORMED BY: [facility] [address] [place] [address] PATHOLOGIST STORE MGR PADILLA MOLINA M.D. Performed By: #### T SH3 wRFLX, LIPID, [id number] #### [facility] [address] [place] [id number] [facility] Vitamin D+Metabolites [Mass/ volume] in Serum or PlasmaOrdered By: Dank Green on 08-17-2024 Vitamin D+Metabolites [Mass/Vol] Vitamin D+Metabolites [Mass/volume] in Serum or Plasma Low 30-100 [facility] Comment on above: VITAMIN D STATUS 25( [place])VITAMIN D RANGE (ng/mL) Deficient <20 Insufficient 20 to <30Sufficient 30 to 100Reference: Cheyanne Valle, Elio MELVIN, et al. Evaluation,treatment, and prevention of vitamin D deficiency; an Endocrine Society clinical practice guideline. JCEM. 2010; 96(7):1911-30. CNOVon 08-13-2024 CNOV Office Visit (CARDMN ) ORION HARPER ([id number]) 1990 F Date Time Provider Department 08/13/24 2:30 PM SOLO MORA CARDMN During your visit today, we recorded the following information about you: Pulse Blood pressure Weight Height 92/minute 140/96 81.6 kg 1.6 m Solo Mora MD 08/26/2024 3:56 PM Signed [facility] [place] Meghna Hooker Department of Cardiovascular Medicine SECTION OF CARDIAC PACING and ELECTROPHYSIOLOGY OUTPATIENT VISIT DATE August 13, 2024 OUTPATIENT VISIT TYPE ESTABLISHED PRIMARY CARE PHYSICIAN: Giovani Hagen MD [address] [place] [address] CHIEF COMPLAINT: Syncope HISTORY OF PRESENT ILLNESS:(NURSING [...] for ischemia (more content not included)... Normal [facility] STRESS ECHO TREADMILLon 04-2 STRESS ECHO TREADMILL Stress Finishing Pan Operator Report: Stress Echo [facility] J1-5 Date of service: 08/13/2024 12:34:08 PM PROMOTER Supervising physician: Geremias Higuera MD PATIENT: Name: ORION HARPER Age: 33 years Gender: F The supervising physician was in the department and immediately available. Final -------- Echocardiography Report: Stress Echo [facility] J1-5 Date of service: 08/13/2024 12:34:08 PM PROMOTER Ordering physician: SOLO MORA Indication: Syncope Technologist: [...] the prior echocardiographic exam performed on 04/09/2024 ([place]). The major resting echocardiographic findings are comparable. Final -------- Stress ECG Report: Stress Echo [facility] J1-5 Date of service: 08/13/2024 12:34:08 PM PROMOTER Ordering physician: SOLO MORA customer energy specialist: Bunny Epperson Fellow: Kiley Gallagher MD [...] estimated e (more content not included)... Normal [facility] MEREDITHORION Eleuterio ([id number]) 1990 F Date Time Provider Department 07/26/24 CAROL WINN During your visit today, we recorded the following information about you: Acacia Gonzalez 07/26/2024 11:38 AM Signed Pt called in asking for lab test results. Please call pt back and advise pt. Benito Soriano, RN 07/26/2024 11:45 AM Signed Latest Reference Range AND Units 04/26/24 15:07/10/24 11:43 Sodium 136 - 144 mmol/L 138 [...] 392.0 (H) (H): Data is abnormally high Iliana Looks like labs were completed at [facility]. Patient is asking about results. Thank you, Benito Soriano, Benito Romano, JW 07/26/2024 12:38 PM Signed Iliana Mercado PA-C [...] in ferritin level. She is ok with [facility] message. Benito Soriano RN Allergies As of [...] Status:Closed by ACACIA GONZALEZ on 08/15/24 Normal [facility] CNOVon 07-10-2024 CNOV Office Visit (OBGYCC ) ORION HARPER ([id number]) 1990 F Date Time Provider Department 07/10/24 [...] - painful intercourse Referred here by her CURRICULUM CONSULTANT at [place]. Has been having pain with intercourse for [...] - PELVIC US WHI - CONSULT TO CURRICULUM CONSULTANT PELVIC PAIN 2. Pelvic pain in female - ICD9: 625.9, ICD10: R10.2 - counseled. - PELVIC US WHI - CONSULT TO CURRICULUM CONSULTANT PELVIC PAIN Javy Boudreaux MD Medical Decision Making: Problems: Moderate: New problem with uncertain prognosis Data: Unique test(s) ordered: 2 Risk: Low: Low risk from testing/treatment Medical Decision Making Level: 3 - Low Referring Provider: DARWIN STARR [[id number]] Allergies As of Date: 07/10/2024 Noted Allergy [...] Diagnosis:Pelvic edward (more content not included)... Normal [facility] Comprehensive metabolic 2000 panelon 07-10-2024 Albumin [Mass/Vol] 4.5 g/dL Normal 3.9-4.9 [facility] Comment on above: Order Comment: Speci men Type: BLOOD SPECIMENOrdering Facility: [facility] Address: [address] [place] [address] Performed By: #### 2 4323-8, 2275-07 ####[facility] LABCLIA [id number] [place] [address] [place] ALP [Catalytic activity/Vol] 130 U/L High 34-123 [facility] Comment on above: Order Comment: Speci men Type: BLOOD SPECIMENOrdering Facility: [facility] Address: [address] [place] [address] Performed By: #### 2 4323-8, 2275- ####[facility] [id number] [place] [address] [place] ALT [Catalytic activity/Vol] 141 U/L High 7-38 [facility] Comment on above: Order Comment: Speci men Type: BLOOD SPECIMENOrdering Facility: [facility] Address: [address] [place] [id number] Performed By: #### 2 4323-8, 2275-07 ####[facility]CL[facility] [id number] [facility] [address] [address] [place] Anion gap [Moles/Vol] 11 mmol/L Normal 8-15 [facility] Comment on above: Order Comment: Speci men Type: BLOOD SPECIMENOrdering Facility: [facility] Address: [address] [place], [place] [address] Performed By: #### 2 4323-8, 2275-07 ####[facility] [id number] [place] [id number] [place] AST [Catalytic activity/Vol] 90 U/L High 13-35 [facility] Comment on above: Order Comment: Speci men Type: BLOOD SPECIMENOrdering Facility: [facility] Address: [address] [place], [place] [address] Performed By: #### 2 4323-8, 2275-07 ####[facility] [id number] [facility] [address] [address] [place] Bilirubin [Mass/Vol] 0.4 mg/dL Normal 0.2-1.3 [facility] Comment on above: Order Comment: Speci men Type: BLOOD SPECIMENOrdering Facility: [facility] Address: [address] [place] [id number] Performed By: #### 2 4323-8, 2275-07 ####[facility]CL[facility] [id number] [place] [id number] [place] Calcium [Mass/Vol] 9.4 mg/dL Normal 8.5-10.2 [facility] Comment on above: Order Comment: Speci men Type: BLOOD SPECIMENOrdering Facility: [facility] Address: [address] [place] [address] Performed By: #### 2 4323-8, 2275- ####[facility] [id number] [address] [address] [place] Chloride [Moles/Vol] 102 mmol/L Normal 98-107 [facility] Comment on above: Order Comment: Speci men Type: BLOOD SPECIMENOrdering Facility: [facility] Address: [address] [place] [address] Performed By: #### 2 4323-8, 2275-07 ####[facility] [id number] [place] [address] [place] CO2 [Moles/Vol] 23 mmol/L Normal 22-30 [facility] Comment on above: Order Comment: Speci men Type: BLOOD SPECIMENOrdering Facility: [facility] Address: [address] [place] [address] Performed By: #### 2 4323-8, 2275-07 ####[facility] [id number] [place] [address] [place] Creatinine [Mass/Vol] 0.71 mg/dL Normal 0.58-0.96 [facility] Comment on above: Order Comment: Speci men Type: BLOOD SPECIMENOrdering Facility: [facility] Address: [address] [place] [address] Performed By: #### 2 4323-8, 2275- ####[facility] [id number] [place] [id number] [place] Creatinine and Glomerular filtration rate.predicted panel (S/P/Bld) 114 mL/min/1.73m??? Normal >=60 [facility] Comment on above: Order Comment: Speci men Type: BLOOD SPECIMENOrdering Facility: [facility] Address: [address] [place] [address] Result Comment: Chely mated Glomerular Filtration Rate [...] actual GFR. Performed By: #### 2 4323-8, 2275- ####[facility] LABIA [id number] [place] [id number] [place] Glucose [Mass/Vol] 121 mg/dL High 74-99 [facility] Comment on above: Order Comment: Rl basilio Type: BLOOD SPECIMENOrdering Facility: [facility] Address: [address] [place] [address] Result Comment: The [place] Diabetes Association (ADA) provides guidance for cutoff [...] of Medical Care in Diabetes 2016, [place] [employer]. Diabetes Care. 2016.39(Suppl 1). Performed By: #### 2 4323-8, 2275-07 ####[facility] LABIA [id number] [place] [id number] [place] Potassium [Moles/Vol] 3.6 mmol/L Low 3.7-5.1 [facility] Comment on above: Order Comment: Rl basilio Type: BLOOD SPECIMENOrdering Facility: [facility] Address: [address] [place] [address] Performed By: #### 2 4323-8, 2275- ####[facility] LABIA [id number] [facility] [id number] [address] [place] Protein [Mass/Vol] 7.3 g/dL Normal 6.3-8.0 [facility] Comment on above: Order Comment: Speci men Type: BLOOD SPECIMENOrdering Facility: [facility] Address: [address] [place], [place] [address] Performed By: #### 2 4323-8, 2275-4 ####[facility]CLIA [id number] [address], [facility] [place] Sodium [Moles/Vol] 136 mmol/L Normal 136-144 [facility] Comment on above: Order Comment: Speci men Type: BLOOD SPECIMENOrdering Facility: [facility] Address: [address] [place] [address] Performed By: #### 2 4323-8, 2275-07 ####[facility]CL[facility] [id number] [address], [facility] [place] Urea nitrogen [Mass/Vol] 9 mg/dL Normal 7-21 [facility] Comment on above: Order Comment: Speci men Type: BLOOD SPECIMENOrdering Facility: [facility] Address: [address] [place] [address] Performed By: #### 2 4323-8, 2275-07 ####[facility]CL[facility] [id number] [facility] [address], [facility] [place] Ferritin SerPl-mCncon 2024 Ferritin [Mass/Vol] 392.0 ng/mL High 14.7-205.1 [facility] Comment on above: Order Comment: Speci men Type: BLOOD SPECIMENOrdering Facility: [facility] Address: [address] [place], [place] [address] Performed By: #### 2 4323-8, 2275- ####[facility]CL[facility] [id number] [facility] [address], [facility] [place] US Pelvison 07-10-2024 [...] Read By: Lulú Washburn M.D. MATERNAL MEDICINE [facility] Radiology Study observation (narrative) [facility] XR ABD 2V SUPINE W UPR/DECUB [...] IMPRESSION: Mild to moderate colonic stool content Supervisor Toy Assembly: MINAL Transcribe Date/Time: Jul 13 2024 9:59A Dictated by : BUNNY LIANG MD This examination was interpreted and the report reviewed and electronically signed by: BUNNY LIANG MD on Jul 13 2024 10:05AM EST [id number] Normal [facility] Iglesias XR Ankle - right 3 Viewson 0 07-03-2024 Imaging Result: Three views were taken today AP/MORT/LAT Ankle: No fractures or dislocations seen joint in good position and alignment [facility] Radiology Study observation (narrative) [facility] RECURRENT VAGINITIS (HTRX)on 06-26-2024 ATOPOBIUM VAGINAE 0 [facility] ATOPOBIUM VAGINAE Not detected [facility] BVAB 2,3 (BACTERIAL VAGINOSIS ASSOCIATED BACTERIA 2, 3); MOBILUNCUS SPP 0 [facility] BVAB 2,3 (BACTERIAL VAGINOSIS ASSOCIATED BACTERIA 2, 3); MOBILUNCUS SPP Not detected [facility] SHARIF ALBICANS, PARAPSILOSIS, TROPICALIS 0 [facility] SHARIF ALBICANS, PARAPSILOSIS, TROPICALIS Not detected [facility] SHARIF GLABRATA 0 [facility] SHARIF GLABRATA Not detected [facility] SHARIF KRUSEI 0 [facility] SHARIF KRUSEI Not detected [facility] CHLAMYDIA TRACHOMATIS 0 [facility] CHLAMYDIA TRACHOMATIS Not detected N [facility] GARDNERELLA VAGINALIS 0 [facility] GARDNERELLA VAGINALIS Not detected N [facility] MEGASPHAERA (TYPES 1, 2) 0 [facility] MEGASPHAERA (TYPES 1, 2) Not detected [facility] MYCOPLASMA GENITALIUM 0 [facility] MYCOPLASMA GENITALIUM Not detected N [facility] NEISSERIA GONORRHOEAE 0 [facility] NEISSERIA GONORRHOEAE Not detected N [facility] TRICHOMONAS VAGINALIS 0 [facility] TRICHOMONAS VAGINALIS Not detected N [facility] MLR HEMOGLOBIN A1Con 025 Glucose [Mass/Vol] 126 mg/dL [facility] HbA1c (Bld) [Mass fraction] 6 % 4.5 - 6.2 % [facility] Comment on above: ADA RECOMMENDED LIMI T 4.0 - 6.0 ADA THERAPEUTIC TARGET < 7.0 ACTION SUGGESTED > 7.0 [facility] ALL CBC WITH AUTO DIFFon BASOPHILS ABSOLUTE AUTO 0 [facility] Basophils/100 WBC (Bld) 0.4 % 0.2 - 2.0 % [facility] Eosinophils/100 WBC (Bld) 4.4 % 0.9 - 7.0 % [facility] Erythrocyte distribution width (RBC) [Ratio] 13.2 % 11.0 - 15.0 % [facility] Hematocrit (Bld) [Volume fraction] 41.6 % 36.0 - 48.0 % [facility] Hemoglobin (Bld) [Mass/Vol] 14 g/dL 12.0 - 16.0 g/dL [facility] IMMATURE GRANULOCYTES ABS AUTO 0.13 High [facility] Immature granulocytes/100 WBC (Bld) 1.6 % High 0.0 - 0.5 % [facility] Interpretation and review of laboratory results Abnormal [facility] LYMPHOCYTES ABSOLUTE AUTO 2.7 [facility] Lymphocytes/100 WBC (Bld) 33.8 % 20.5 - 60.0 % [facility] MCH (RBC) [Entitic mass] 32.6 pg 26.7 - 34.0 pg [facility] MCHC (RBC) [Mass/Vol] 33.7 g/dL 29.9 - 35.2 g/dL [facility] [facility] MCV (RBC) [Entitic vol] 96.7 fL 81.0 - 99.0 fL [facility] MONOCYTES ABSOLUTE AUTO 0.5 [facility] Monocytes/100 WBC (Bld) 5.9 % 1.7 - 12.0 % [facility] NEUTROPHILS ABSOLUTE AUTO 4.4 [facility] Neutrophils/100 WBC (Bld) 53.9 % 43.0 - 75.0 % [facility] Platelet mean volume (Bld) [Entitic vol] 10.4 fL 9.5 - 13.5 fL [facility] EO # 0.4 [facility] PLT 257 [facility] RBC 4.3 [facility] WBC 8.1 [facility] CL[facility]ISYNC [facility] C. difficile toxin genes SHEILA +probe Ql (Stl)on 05-23-2024 Interpretation and review of laboratory results Abnormal [facility] CLOSTRIDIUM DIFFICILE TOXIN BY PCRon 05-23-2024 C. difficile toxin genes SHEILA+probe Ql (Stl) Positive Abnormal Negative for C. difficile toxin by PCR [facility] Comment on above: A positive PCR [...] pre-agreed criteria for specimen submission. [place] 05-23-2024 CNPN Telephone (TANI) MEREDITHORION ([id number]) 1990 F Date Time Provider Department 05/23/24 [...] Encounter Status:Closed by BENITO SORIANO on 05/24/24 [facility] ANES POSTPROC EVALon 025 ANES POSTPROC EVAL HNO ID: [id number] Author: OBED BHATT APRN.CRNA Service: Anesthesiology Author Type: Nurse Grapple Yarder Operator Type: Anesthesia Postprocedure Evaluation Filed: 05/22/2024 [...] May 22, 2024 TIME: 2:22 PM CSN: [id number] Normal [facility] ANES PRE-OPon 05-22-2024 ANES PRE-OP HNO ID: [id number] Author: OBED BHATT APRN.CRNA Service: Anesthesiology Author Type: Nurse Grapple Yarder Operator Type: Anesthesia Preprocedure Evaluation Filed: 05/22/2024 [...] and consent discussed: yes. Patient / Responsible Constitution Party agrees to proceed: yes Patient / [...] May 22, 2024 TIME: 2:22 PM CSN: [id number] Normal [facility] PRE-OP HNO ID: [id number] Author: OBED BHATT APRN.CRNA Service: Anesthesiology Author Type: Nurse Grapple Yarder Operator Type: Anesthesia Preprocedure Evaluation Filed: 05/22/2024 [...] and consent discussed: yes. Patient / Responsible Constitution Party agrees to proceed: yes Patient / [...] May 22, 2024 TIME: 2:18 PM CSN: [id number] Normal [facility] C diff Tox gens Stl Ql SHEILA+p robeon 05-22-2024 C. difficile toxin genes SHEILA+probe Ql (Stl) Positive Abnormal Negative for C. difficile toxin by PCR [facility] Comment on above: Order Comment: Rl basilio Type: STOOL SPECIMENOrdering Facility: [facility] Address: [address] [place] [address] Result Comment: A po sitive PCR result [...] submission. Performed By: #### 5 4067-4, CDEIA ####[facility] [id number] [place] [address] [place] CLOSTRIDIUM DIFFICILE TOXIN BY EIAon 05-22-2024 C. difficile toxin A+B IA Ql (Stl) Not detected Normal Negative for C. difficile toxin [facility] Comment on above: Order Comment: Dionicioi chetna Type: STOOL SPECIMENOrdering Facility: [facility] Address: [address] [place] [address] Result Comment: Toxi n EIA is less sensitive than cell cytotoxin and PCR assays. Clinical correlation of PCR positive/toxin EIA negative results is required to distinguish C. difficle colonization from disease. Performed By: #### 5 4067-4, CDEIA ####[facility] [id number] [facility] [id number] [place] [address] OF [facility] COLONOSCOPYon 05-22-[address] [facility] Gastroenterology Gastrointestinal Endoscopy Patient Name: Orion Harper Procedure Date: 05/22/2024 1:40 PM Date of : 1990 Admit Type: Outpatient Age: 33 Room: [place] [address] Gender: Female Note Status: Finalized Attending MD: Carol Winn MD, [id number] Procedure: Colonoscopy Indications: Rectal bleeding, Change in [...] by the physician, the nurse, the senior game developer and the compressor service technician in the procedure room. Mental Status [...] bowel preparation was evaluated using the BBPS (Letts Bowel Preparation Scale) with scores of: Right [...] not included)... [facility], Radiologist, - 05/22/[address] [facility] Gastroenterology Gastrointestinal Endoscopy Patient Name: Orion Harper Procedure Date: 05/22/2024 1:40 PM Date of : 1990 Admit Type: Outpatient Age: 33 Room: [facility] 2 Gender: Female Note Status: Finalized Attending MD: Carol Winn MD, [id number] Procedure: Colonoscopy Indications: Rectal bleeding, Change in [...] by the physician, the nurse, the senior game developer and the compressor service technician in the procedure room. Mental Status [...] bowel preparation was evaluated using the BBPS (Letts Bowel Preparation Scale) with scores of: Right [...] once a da (more content not included)... [facility] COLONOSCOPYOrdered By: [employer] [facility] on 05-22-2024 [employer] Work Phone: Colonoscopyon 05-22-[address] 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 Mental Status [...] bowel preparation was evaluated using the BBPS (Letts Bowel Preparation Scale) with scores of: Right [...] previously scheduled. (more content not included)... Normal [facility] Flexible sigmoidoscopy study on 05-22-[address] [facility] Gastroenterology Gastrointestinal Endoscopy Patient Name: Orion Harper Procedure Date: 05/22/2024 1:40 PM Date of : 1990 Admit Type: Outpatient Age: 33 Room: [place] [address] Gender: Female Note Status: Finalized Attending MD: Carol Winn MD, [id number] Procedure: Colonoscopy Indications: Rectal bleeding, Change in [...] by the physician, the nurse, the senior game developer and the compressor service technician in the procedure room. Mental Status [...] bowel preparation was evaluated using the BBPS (Letts Bowel Preparation Scale) with scores of: Right [...] were ph (more content not included)... [facility] Gastrointestinal pathogens i dentified SHEILA+probe Nom (Stl)on 05-22-2024 Campylobacter sp DNA SHEILA+probe Nom (Unsp spec) Not detected Normal Not Detected [facility] Comment on above: Order Comment: Speci men Type: STOOL SPECIMENOrdering Facility: [facility] Address: [address] [place] [address] Performed By: #### 7 9390-1 ####[facility] [id number] [place] [address] [place] Salmonella sp DNA SHEILA+probe Ql (Unsp spec) Not detected Normal Not Detected [facility] Comment on above: Order Comment: Speci men Type: STOOL SPECIMENOrdering Facility: [facility] Address: [address] [place] [address] Performed By: #### 7 9390-1 ####[facility] [id number] [address] [place] Shiga toxin stx gene SHEILA+probe Nom (Unsp spec) Not detected Normal Not Detected [facility] Comment on above: Order Comment: Speci men Type: STOOL SPECIMENOrdering Facility: [facility] Address: [address] [place] [address] Performed By: #### 7 9390-1 ####[facility] [id number] [address] [place] Shigella sp DNA SHEILA+probe Ql (Unsp spec) Not detected Normal Not Detected [facility] Comment on above: Order Comment: Speci men Type: STOOL SPECIMENOrdering Facility: [facility] Address: [address] [place] [address] Performed By: #### 7 9390-1 ####[facility] [id number] [place] [address] [place] HISTORY PHYSICALon HISTORY PHYSICAL HNO ID: [id number] Author: CAROL WINN MD Service: Gastroenterology Author [...] May 22, 2024 TIME: 1:39 PM Normal [facility] NURSING PROGon 05-22-2024 NURSING PROG HNO ID: [id number] Author: LINDSEY BUCKLEY RN Service: ? Author [...] Buckley RN In Department: AMBULATORY SURGERY Normal [facility] No Panel Informationon 05-22 Radiology Study observation (narrative) [facility] SURGICAL PATHOLOGYon 025 CASE REPORT Normal [facility] Comment on above: Order Comment: Speci men Type: TISSUE SPECIMENOrdering Facility: [facility] Address: [address] [place] [address] Result Comment: Surg ical Pathology Report Case: [id number] Authorizing Provider: Carol Winn MD Collected: 05/22/2024 02:05 PM Ordering Location: Ambulatory Surgery Received: 05/22/2024 08:39 PM Pathologist: Fe Barnes MD Specimens: A) - Colon, Right, Biopsy, r/o microscopic colitis, r/o inflammation B) - Colon, Left, Biopsy, r/o microscopic colitis, r/o inflammation Performed By: #### S ####[facility] [id number] [address] OF [facility] FINAL DIAGNOSIS Normal [facility] Comment on above: Order Comment: Speci men Type: TISSUE SPECIMENOrdering Facility: [facility] Address: [address] [place] [address] Result Comment: A. C olon, right, biopsy: - Colonic mucosa with no significant pathologic change. B. Colon, left, biopsy: - Colonic mucosa with no significant pathologic change. Performed By: #### S ####[facility] [id number] [place] [address] [place] FINAL PERFORMING LAB [facility] Comment on above: Order Comment: Speci men Type: TISSUE SPECIMENOrdering Facility: [facility] Address: [address] [place] [address] Result Comment: Diag nostic interpretation performed at: [facility], [address] [place] [address] CLIA# [id number] Parts Manager: Alhaji Galvez MD Performed By: #### S ####[facility] [id number] [place] [address] [place] GROSS DESCRIPTION Normal [facility] Comment on above: Order Comment: Speci men Type: TISSUE SPECIMENOrdering Facility: [facility] Address: [address] [place] [address] Result Comment: A. C olon, Right, Biopsy [...] 2024 10:34 PM Gross examination performed at [facility], [address] [place] [address] Performed By: #### S ####[facility] [id number] [place] [address] [place] XR Ankle - right 3 Viewson 0 05-15-2024 Imaging Result: XRAY: Three views were taken today AP/MORT/LAT Ankle: No fractures or dislocations seen no spurring noted at the lateral ankle ligament complex noted as reported on the MRI [facility] Radiology Study observation (narrative) [facility] ALL CBC WITH AUTO DIFFon BASOPHILS ABSOLUTE AUTO 0 [facility] Basophils/100 WBC (Bld) 0.4 % 0.2 - 2.0 % [facility] Eosinophils/100 WBC (Bld) 2.2 % 0.9 - 7.0 % [facility] Erythrocyte distribution width (RBC) [Ratio] 12.9 % 11.0 - 15.0 % [facility] Hematocrit (Bld) [Volume fraction] 41.2 % 36.0 - 48.0 % [facility] Hemoglobin (Bld) [Mass/Vol] 13.8 g/dL 12.0 - 16.0 g/dL [facility] IMMATURE GRANULOCYTES ABS AUTO 0.19 High [facility] Immature granulocytes/100 WBC (Bld) 1.9 % High 0.0 - 0.5 % [facility] Interpretation and review of laboratory results Abnormal [facility] LYMPHOCYTES ABSOLUTE AUTO 3 [facility] Lymphocytes/100 WBC (Bld) 30.1 % 20.5 - 60.0 % [facility] MCH (RBC) [Entitic mass] 32.7 pg 26.7 - 34.0 pg [facility] MCHC (RBC) [Mass/Vol] 33.5 g/dL 29.9 - 35.2 g/dL [facility] MCV (RBC) [Entitic vol] 97.6 fL 81.0 - 99.0 fL [facility] MONOCYTES ABSOLUTE AUTO 0.7 [facility] Monocytes/100 WBC (Bld) 6.6 % 1.7 - 12.0 % [facility] NEUTROPHILS ABSOLUTE AUTO 5.8 [facility] Neutrophils/100 WBC (Bld) 58.8 % 43.0 - 75.0 % [facility] Platelet mean volume (Bld) [Entitic vol] 10.8 fL 9.5 - 13.5 fL [facility] EO # 0.2 [facility] PLT 206 [facility] RBC 4.22 [facility] WBC 9.9 [facility] CNPNon 05-06-2024 CNPN Telephone (CARDMN) ORION HARPER ([id number]) 1990 F Date Time Provider Department 1/13/25 ANASOLO ENNIS CARDMN During your visit today, we recorded the following information about you: Criss Mccrary 05/06/2024 1:41 PM Signed Echo was faxed to Anne-Marie @ [phone] AND scanned into outside ep. Patient is [...] Status:Closed by CRISS MCCRARY on 05/06/24 Normal [facility] Liver ultrasound attenuation by transient elastographyon 05-02-2024 [...] Int J Clin Exp Med. 2015 Jan 15;8(10):36184-12. PMID: 88461678; PMCID: [id number]. Ruthann Bob, Juan MEEK, Rico M, Cosmo F, Tawnya J, Everardo O, Leyla F, Franci M, Alejandro G, Dorie A, Gianna E, Leyla L, French Mcgovern, Kashmir A, Vicente U, Jodi S, Franc P, Max V, Last V, Leena M, Neo MARIE. Refining the Baveno elastography criteria for the definition of compensated advanced chronic liver disease. J Hepatol. 2020;74(5):8344-2727. doi: 10.1016/j.jhep.2020.1 1.050. Epub 2019Apr 01. PMID: 67012878. Izabel Bob, Chastity Moran, Martha Bob, Xiao Bob, Joon Fontanez, Nuria Roth, Trevin Roth, Trixie Kendrick. AASLD practice guidance on the clinical assessment and management of nonalcoholic fatty liver disease. Hepatology. 2022;77(5):4459-3378. doi:10.1097/HEP.93640 [id number] [facility] Radiology Study observation (narrative) [facility] Radiology Study observation (narrative) [facility] A1AT SerPl-mCncon 04-26-2024 Alpha 1 antitrypsin [Mass/Vol] 123 mg/dL Normal 90-200 [facility] Comment on above: Order Comment: Speci men Type: BLOOD SPECIMEN [facility] Address: [address] [place] [address] Performed By: #### 1 825-9, 2064-4 #### [facility] CLIA [id number] [address] [place] [address] [place] AFP SerPl-mCncon 04-26-2024 AFP [Mass/Vol] 3.01 ng/mL Normal <9.00 [facility] Comment on above: Order Comment: Speci men Type: BLOOD SPECIMEN [facility] Address: [address] [place] [address] Result Comment: The Alpha-Fetoprotein test was performed using the Sage Fabbeoel DxI immunoenzymatic assay. Results obtained with different assay methods or kits cannot be used interchangeably. Performed By: #### 1 834-1 #### [facility] CLIA [id number] [address] [place] [address] [place] DENY BY IFA WITH REFLEXon Nuclear Ab Ql (S) Negative Normal Negative [facility]ep[facility] Comment on above: Order Comment: Speci men Type: BLOOD SPECIMEN [facility] Address: [address] [place] [address] Result Comment: Anti -nuclear antibody test is used as an aid in diagnosis of systemic autoimmune diseases. Where positive and clinically warranted, follow-up using disease-specific testing is recommended. Low positive titers are not uncommon with advanced age, certain chronic infections, and malignancies among others. Test methodology: Indirect fluorescence immunoassay (IFA) using HEp-2 cells. Performed By: #### A NAIFR #### [facility] CLIA [id number] [address] [place], [place] [address] [address] STATES OF [facility] CBC W Auto Differential pane l (Bld)on 04-26-2024 Basophils (Bld) [#/Vol] 0.06 10*3/uL [facility] Differential cell count method Nom (Bld) Auto [facility] Eosinophils (Bld) [#/Vol] [facility] Immature granulocytes (Bld) [#/Vol] 0.33 10*3/uL High [facility] Immature granulocytes/100 WBC (Bld) 2.7 % [facility] Lymphocytes (Bld) [#/Vol] 2.80 10*3/uL [facility] MCH (RBC) [Entitic mass] 32.0 pg 26.0 - 34.0 pg [facility] Monocytes (Bld) [#/Vol] 0.41 10*3/uL [facility] Neutrophils (Bld) [#/Vol] 8.78 10*3/uL High [facility] Nucleated RBC (Bld) [#/Vol] [facility] Nucleated RBC/100 WBC (Bld) [Ratio] 0.0 % /100 WBC [facility] Platelet mean volume (Bld) [Entitic vol] 10.8 fL 9.0 - 12.7 fL [facility] Platelets (Bld) [#/Vol] 271 10*3/uL [facility] WBC (Bld) [#/Vol] 12.39 10*3/uL [facility] Basophils (Bld) [#/Vol] 0.06 10*3/uL Normal <0.11 [facility] Comment on above: Order Comment: Speci men Type: BLOOD SPECIMEN [facility] Address: [address] [place] [address] Performed By: #### 1 8208-30, 2063-07 #### [facility] CLIA [id number] [address] [place] [address] [place] Basophils/100 WBC (Bld) 0.5 % Normal [facility] Comment on above: Order Comment: Speci men Type: BLOOD SPECIMEN [facility] Address: [address] [place] [address] Performed By: #### 1 8208-30, 2063-07 #### [facility] CLIA [id number] [address] [place] [address] [place] Differential cell count method Nom (Bld) Auto Normal [facility] ital Comment on above: Order Comment: Speci men Type: BLOOD SPECIMEN [facility] Address: [address] [place] [address] Performed By: #### 1 , 2063-07 #### [facility] CLIA [id number] [address] [place] [address] [place] Eosinophils (Bld) [#/Vol] 10*3/uL Normal <0.46 [facility] Comment on above: Order Comment: Speci men Type: BLOOD SPECIMEN [facility] Address: [address] [place] [address] Performed By: #### 1 8208-30, 2063-07 #### [facility] CLIA [id number] [address] [place] [address] [place] Eosinophils/100 WBC (Bld) 0.1 % Normal [facility] Comment on above: Order Comment: Speci men Type: BLOOD SPECIMEN [facility] Address: [address] [place] [address] Performed By: #### 1 8208-30, 2063-07 #### [facility] CLIA [id number] [address] [place] [address] [place] Erythrocyte distribution width (RBC) [Ratio] 12.5 % Normal 11.5-15.0 [facility] Comment on above: Order Comment: Speci men Type: BLOOD SPECIMEN [facility] Address: [address] [place] [address] Performed By: #### 1 , 2063-07 #### [facility] CLIA [id number] [address] [place] [address] [place] Hematocrit (Bld) [Volume fraction] 46.1 % High 36.0-46.0 [facility] Comment on above: Order Comment: Speci men Type: BLOOD SPECIMEN [facility] Address: [address] [place] [address] Performed By: #### 1 , 2063-07 #### [facility] CLIA [id number] [address] [place] [address] [place] Hemoglobin (Bld) [Mass/Vol] 15.5 g/dL Normal 11.5-15.5 [facility] Comment on above: Order Comment: Speci men Type: BLOOD SPECIMEN [facility] Address: [address] [place] [address] Performed By: #### 1 , 2063-07 #### [facility] CLIA [id number] [address] [place] [address] [place] Immature granulocytes (Bld) [#/Vol] 0.33 10*3/uL High <0.10 [facility] Comment on above: Order Comment: Speci men Type: BLOOD SPECIMEN [facility] Address: [address] [place] [address] Performed By: #### 1 8208-30, 2063-07 #### [facility] CLIA [id number] [address] [place] [address] [place] Immature granulocytes/100 WBC (Bld) 2.7 % Normal [facility] Comment on above: Order Comment: Speci men Type: BLOOD SPECIMEN [facility] Address: [address] [place] [address] Performed By: #### 1 829, 2063-07 #### [facility] CLIA [id number] [address] [place] [address] [place] Lymphocytes (Bld) [#/Vol] 2.80 10*3/uL Normal 1.00-4.00 [facility] Comment on above: Order Comment: Speci men Type: BLOOD SPECIMEN [facility] Address: [address] [place] [address] Performed By: #### 1 829, 2063-07 #### [facility] CLIA [id number] [address] [place] [address] [place] Lymphocytes/100 WBC (Bld) 22.6 % Normal [facility] Comment on above: Order Comment: Speci men Type: BLOOD SPECIMEN [facility] Address: [address] [place] [address] Performed By: #### 1 829, 2063-07 #### [facility] CLIA [id number] [address] [place] [address] [place] MCH (RBC) [Entitic mass] 32.0 pg Normal 26.0-34.0 [facility] Comment on above: Order Comment: Speci men Type: BLOOD SPECIMEN [facility] Address: [address] [place] [address] Performed By: #### 1 8259, 2063-07 #### [facility] CLIA [id number] [address] [place] [address] [place] MCHC (RBC) [Mass/Vol] 33.6 g/dL Normal 30.5-36.0 [facility] Comment on above: Order Comment: Speci men Type: BLOOD SPECIMEN [facility] Facility[facility] Address: [address] [place] [address] Performed By: #### 1 829, 2063-07 #### [facility] CLIA [id number] [address] [place] [address] [place] MCV (RBC) [Entitic vol] 95.1 fL Normal 80.0-100.0 [facility] Comment on above: Order Comment: Speci men Type: BLOOD SPECIMEN [facility] Address: [address] [place] [address] Performed By: #### 1 829, 2063-07 #### [facility] CLIA [id number] [address] [place] [address] [place] Monocytes (Bld) [#/Vol] 0.41 10*3/uL Normal <0.87 [facility] Comment on above: Order Comment: Speci men Type: BLOOD SPECIMEN [facility] Facility: [facility] Address: [address] [place] [address] Performed By: #### 1 829, 2063-07 #### [facility] CLIA [id number] [address] [place] [address] [place] Monocytes/100 WBC (Bld) 3.3 % Normal [facility] Comment on above: Order Comment: Speci men Type: BLOOD SPECIMEN [facility] Address: [address] [place] [address] Performed By: #### 1 8259, 2063-07 #### [facility] CLIA [id number] [address] [place] [address] [place] Neutrophils (Bld) [#/Vol] 8.78 10*3/uL High 1.45-7.50 [facility] Comment on above: Order Comment: Speci men Type: BLOOD SPECIMEN [facility] Facility: [facility] Address: [address] [place] [address] Performed By: #### 1 8208-30, 2063-07 #### [facility] CLIA [id number] [address] [place] [address] [place] Neutrophils/100 WBC (Bld) 70.8 % Normal [facility] Comment on above: Order Comment: Speci men Type: BLOOD SPECIMEN [facility] Address: [address] [place] [address] Performed By: #### 1 , 2063-07 #### [facility] CLIA [id number] [address] [place] [address] [place] Nucleated RBC (Bld) [#/Vol] 10*3/uL Normal <0.01 [facility] Comment on above: Order Comment: Speci men Type: BLOOD SPECIMEN [facility] Facility: [facility] Address: [address] [place] [address] Performed By: #### 1 , 2063-07 #### [facility] CLIA [id number] [address] [place] [address] [place] Nucleated RBC/100 WBC (Bld) [Ratio] 0.0 /100 WBC Normal [facility] Comment on above: Order Comment: Speci men Type: BLOOD SPECIMEN Ordering Facility: [facility] Address: [address] [place] [address] Performed By: #### 1 , 2063-07 #### [facility] CLIA [id number] [address] [place] [address] [place] Platelet mean volume (Bld) [Entitic vol] 10.8 fL Normal 9.0-12.7 [facility] Comment on above: Order Comment: Speci men Type: BLOOD SPECIMEN Ordering Facility: [facility] Address: [address] [place] [address] Performed By: #### 1 8208-30, 2063-07 #### [facility] CLIA [id number] [address] [place] [address] [place] Platelets (Bld) [#/Vol] 271 10*3/uL Normal 150-400 [facility] Comment on above: Order Comment: Speci men Type: BLOOD SPECIMEN Ordering Facility: [facility] Address: [address] [place] [address] Performed By: #### 1 825-9, 2063-07 #### [facility] CLIA [id number] [address] [place] [address] [place] RBC (Bld) [#/Vol] 4.85 10*6/uL Normal 3.90-5.20 [facility] Comment on above: Order Comment: Speci men Type: BLOOD SPECIMEN Ordering Facility: [facility] Address: [address] [place] [address] Performed By: #### 1 825-9, 2063-07 #### [facility] CLIA [id number] [address] [place] [address] [place] WBC (Bld) [#/Vol] 12.39 10*3/uL High 3.70-11.00 [facility] Comment on above: Order Comment: Speci men Type: BLOOD SPECIMEN Ordering Facility: [facility] Address: [address] [place] [address] Performed By: #### 1 825-9, 2063-07 #### [facility] CLIA [id number] [address] [place] [address] [place] [facility] CBC W AUTO DIFF BLDon [facility] BASOPHILS # BLD AUTO 0.06 [facility] DIFFERENTIAL METHOD BLD Auto [facility] EOSINOPHIL # BLD AUTO <0.03 [facility] LYMPHOCYTES # BLD AUTO 2.8 [facility] MONOCYTES # BLD AUTO 0.41 [facility] NEUTROPHILS # BLD AUTO 8.78 High [facility] NRBC # BLD AUTO <0.01 [facility] NRBC/100 WBC BLD-RTO 0 /100 WBC [facility] PLATELET # BLD AUTO 271 [facility] PMV BLD AUTO 10.8 fL 9.0 - 12.7 fL [facility] WBC # BLD AUTO 12.39 High [facility] IMM GRANULOCYTES # BLD AUTO 0.33 High NINF [facility] IMM GRANULOCYTES/LEUK NFR BLD AUTO 2.7 % [facility] MCH (RBC) [Entitic mass] 32 pg 26.0 - 34.0 pg [facility] Specimen Type: BLOOD SPECIMEN Ordering Facility: [facility] Address: [address] [place] [address] Original Ordering Provider: ILIANA Alexandra 04-26-2024 CNOV Office Visit (TANI ) ORION HARPER ([id number]) 1990 F Date Time Provider Department 04/26/24 [...] do not hesitate to send me a [employer] message or call. FARNAZ Mohr Lauren, PA-C [...] she saw Dr. Hylton in 2021 in [facility]. 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 Hylton who is ivory polisher We discussed seeing endocrinology to help with [...] (ambulatory). Colonosc (more content not included)... Normal [facility] CNOV Office Visit (ORMDNA ) ORION HARPER ([id number]) 1990 F Date Time Provider Department 04/26/24 [...] talofibular ligament of right ankle, initial encounter S93.511Y Plan: Patient has pain and swelling of right ankle recalcitrant to conservative txt options I need imaging studies to eval for right ankle surgical procedure decision making and plan (more content not included)... Normal [facility] Ceruloplasmin SerPl-mCncon 0 04-26-2024 Ceruloplasmin [Mass/Vol] 27 mg/dL Normal 16-45 [facility] Comment on above: Order Comment: Speci men Type: BLOOD SPECIMEN Ordering Facility: [facility] Address: [address] [place] [address] Performed By: #### 1 825-9, 2064-4 #### [facility] CLIA [id number] [address] [place], [place] [address] [address] [place] Comprehensive metabolic 2000 panelon 04-26-2024 Albumin [Mass/Vol] 4.7 g/dL 3.9 - 4.9 g/dL [facility] ALP [Catalytic activity/Vol] 144 U/L High 34 - 123 U/L [facility] ALT [Catalytic activity/Vol] 192 U/L High 7 - 38 U/L [facility] Anion gap [Moles/Vol] 13 mmol/L 8 - 15 mmol/L [facility] AST [Catalytic activity/Vol] 99 U/L High 13 - 35 U/L [facility] Bilirubin [Mass/Vol] 0.3 mg/dL 0.2 - 1 .3 mg/dL [facility] Calcium [Mass/Vol] 9.2 mg/dL 8.5 - 10. 2 mg/dL [facility] Chloride [Moles/Vol] 100 mmol/L 98 - 10 7 mmol/L [facility] CO2 [Moles/Vol] 25 mmol/L 22 - 30 mmol/L [facility] Creatinine [Mass/Vol] 0.58 mg/dL 0.58 - 0.96 mg/dL [facility] GFR/1.73 sq M.predicted among non-blacks MDRD (S/P/Bld) [Vol rate/Area] 121 mL/min/{1.73_m2} - PINF [facility] Comment on above: Estimated Glomerular Filtration [...] [Mass/Vol] 95 mg/dL 74 - 99 mg/dL [facility] Comment on above: The [employer] [place] Diab[employer] Association (ADA) provides guidance for [...] of Medical Care in Diabetes 2016, [place] [employer]. Diabetes Care. 2016.39(Suppl 1). Interpretation and review of laboratory results Abnormal [facility] Potassium [Moles/Vol] 4.0 mmol/L 3.7 - 5.1 mmol/L [facility] Protein [Mass/Vol] 8.0 g/dL 6.3 - 8.0 g/dL [facility] Sodium [Moles/Vol] 138 mmol/L 136 - 144 mmol/L [facility] Urea nitrogen [Mass/Vol] 12 mg/dL 7 - 21 mg/dL [facility] Albumin [Mass/Vol] 4.7 g/dL Normal 3.9-4.9 [facility] Comment on above: Order Comment: Rl basilio Type: BLOOD SPECIMEN Ordering Facility: [facility] Address: [address] [place] [address] Performed By: #### 1 825-9, 2064-4 #### [facility] CLIA [id number] [address] [place], [place] [address] [place] [address] [place] ALP [Catalytic activity/Vol] 144 U/L High 34-123 [facility] Comment on above: Order Comment: Rl basilio Type: BLOOD SPECIMEN Ordering Facility: [facility] Address: [address] [place] [address] Performed By: #### 1 825-9, 2063-07 #### [facility] CLIA [id number] [address] [place] [address] [place] ALT [Catalytic activity/Vol] 192 U/L High 7-38 [facility] Comment on above: Order Comment: Speci men Type: BLOOD SPECIMEN Ordering Facility: [facility] Address: [address] [place] [address] Performed By: #### 1 82-9, 2063-07 #### [facility] CLIA [id number] [address] [place] [address] [place] Anion gap [Moles/Vol] 13 mmol/L Normal 8-15 [facility] Comment on above: Order Comment: Speci men Type: BLOOD SPECIMEN Ordering Facility: [facility] Address: [address] [place] [address] Performed By: #### 1 829, 2063-07 #### [facility] CLIA [id number] [address] [place] [address] [place] AST [Catalytic activity/Vol] 99 U/L High 13-35 [facility] Comment on above: Order Comment: Speci men Type: BLOOD SPECIMEN Ordering Facility: [facility] Address: [address] [place] [address] Performed By: #### 1 829, 2063-07 #### [facility] CLIA [id number] [address] [place] [address] [place] Bilirubin [Mass/Vol] 0.3 mg/dL Normal 0.2-1.3 [facility] Comment on above: Order Comment: Speci men Type: BLOOD SPECIMEN Ordering Facility: [facility] Address: [address] [place] [address] Performed By: #### 1 8259, 2063-07 #### [facility] CLIA [id number] [address] [place] [address] [place] Calcium [Mass/Vol] 9.2 mg/dL Normal 8.5-10.2 [facility] Comment on above: Order Comment: Speci men Type: BLOOD SPECIMEN Ordering Facility: [facility] Address: [address] [place] [address] Performed By: #### 1 825-9, 2063-07 #### [facility] CLIA [id number] [address] [place] [address] [place] Chloride [Moles/Vol] 100 mmol/L Normal 98-107 [facility] Comment on above: Order Comment: Speci men Type: BLOOD SPECIMEN Ordering Facility: [facility] Address: [address] [place] [address] Performed By: #### 1 825-9, 2063-07 #### [facility] CLIA [id number] [address] [place] [address] [place] CO2 [Moles/Vol] 25 mmol/L Normal 22-30 [facility] Comment on above: Order Comment: Speci men Type: BLOOD SPECIMEN Ordering Facility: [facility] Address: [address] [place] [address] Performed By: #### 1 825-9, 2063-07 #### [facility] CLIA [id number] [address] [place] [address] [place] Creatinine [Mass/Vol] 0.58 mg/dL Normal 0.58-0.96 [facility] Comment on above: Order Comment: Speci men Type: BLOOD SPECIMEN Ordering Facility: [facility] Address: [address] [place] [address] Performed By: #### 1 825-9, 2063-07 #### [facility] CLIA [id number] [address] [place] [address] [place] Creatinine and Glomerular filtration rate.predicted panel (S/P/Bld) 121 mL/min/1.73m??? Normal >=60 [facility] Comment on above: Order Comment: Rl basilio Type: BLOOD SPECIMEN Ordering Facility: [facility] Address: [address] [place] [address] Result Comment: Chely mated Glomerular Filtration Rate [...] reflect actual GFR. Performed By: #### 1 825-9, 2063-07 #### [facility] CLIA [id number] [address] [place] [address] [place] Glucose [Mass/Vol] 95 mg/dL Normal 74-99 [facility] Comment on above: Order Comment: Rl basilio Type: BLOOD SPECIMEN Ordering Facility: [facility] Address: [address] [place] [address] Result Comment: The [place] Diabetes Association (ADA) provides guidance for cutoff [...] of Medical Care in Diabetes 2016, [employer] [place] [employer]. Diabetes Care. 2016.39(Suppl 1). Performed By: #### 1 825-9, 2063-07 #### [facility] CLIA [id number] [address] [place] [address] [place] Potassium [Moles/Vol] 4.0 mmol/L Normal 3.7-5.1 [facility] Comment on above: Order Comment: Rl basilio Type: BLOOD SPECIMEN Ordering Facility: [facility] Address: [address] [place] [address] Performed By: #### 1 825-9, 2063-07 #### [facility] CLIA [id number] [address] [place] [address] [place] Protein [Mass/Vol] 8.0 g/dL Normal 6.3-8.0 [facility] Comment on above: Order Comment: Speci men Type: BLOOD SPECIMEN Ordering Facility: [facility] Address: [address] [place] [address] Performed By: #### 1 825-9, 2063-07 #### [facility] CLIA [id number] [address] [place] [address] [place] Sodium [Moles/Vol] 138 mmol/L Normal 136-144 [facility] Comment on above: Order Comment: Speci men Type: BLOOD SPECIMEN Ordering Facility: [facility] Address: [address] [place] [address] Performed By: #### 1 825-9, 2063-07 #### [facility] CLIA [id number] [address] [place] [address] [place] Urea nitrogen [Mass/Vol] 12 mg/dL Normal 7-21 [facility] Comment on above: Order Comment: Speci men Type: BLOOD SPECIMEN Ordering Facility: [facility] Address: [address] [place] [address] Performed By: #### 1 825-9, 2063-07 #### [facility] CLIA [id number] [address] [place] [address] [place] FERRITINon 04-26-2024 Ferritin [Mass/Vol] 420.9 ng/mL High 14.7 - 2 05.1 ng/mL [facility] Ferritin SerPl-mCncon 2024 Ferritin [Mass/Vol] 420.9 ng/mL High 14.7-205.1 [facility] Comment on above: Order Comment: Speci men Type: BLOOD SPECIMEN Ordering Facility: [facility] Address: [address] [place] [address] Performed By: #### 1 825-9, 2064-4 #### [facility] CLIA [id number] [address] [place] [address] [place] Ferritin [Mass/Vol]on 2024 Interpretation and review of laboratory results Abnormal [facility] HAV IgM Ser Qlon 04-26-2024 HAV IgM Ql (S) Negative Normal Negative [facility] Comment on above: Order Comment: Speci men Type: BLOOD SPECIMEN Ordering Facility: [facility] Address: [address] [place] [address] Result Comment: No e vidence of recent infection with Hepatitis A virus. Performed By: #### 3 1204-1, 21277-2, 5194-06 #### [facility] CLIA [id number] [address] [place] [address] [place] HBV core IgM Ser Qlon 2024 HBV core IgM Ql (S) Negative Normal Negative [facility] Comment on above: Order Comment: Speci chetna Type: BLOOD SPECIMEN Ordering Facility: [facility] Address: [address] [place] [address] Result Comment: No e vidence of recent infection with Hepatitis B virus. Should recent infection be suspected, repeat testing may be considered 3-4 weeks after this draw. Performed By: #### 3 1204-1, 58171-8, 5194-06 #### [facility] CLIA [id number] [address] [place] [address] [place] HBV surface Ag Ser Qlon HBV surface Ag Ql (S) Negative Normal Negative [facility] Comment on above: Order Comment: Speci men Type: BLOOD SPECIMEN Ordering Facility: [facility] Address: [address] [place] [address] Performed By: #### 3 1204-1, 00027-5, 3 #### [facility] CLIA [id number] [address] [place] [address] [place] HCV Ab Ser Qlon 04-26-2024 HCV Ab Ql (S) Negative Normal Negative [facility] Comment on above: Order Comment: Speci men Type: BLOOD SPECIMEN Ordering Facility: [facility] Address: [address] [place] [address] Result Comment: The result suggests no evidence of active infection with Hepatitis C virus. Should recent infection be suspected, repeat testing may be considered 4-6 weeks after this draw. Performed By: #### 1 6128-1 #### [facility] CLIA [id number] [address] [place] [address] [place] Iron and Iron binding capaci ty panelon 04-26-2024 Interpretation and review of laboratory results Normal [facility] Iron [Mass/Vol] 105 ug/dL 41 - 186 ug/dL [facility] Iron binding capacity [Mass/Vol] 340 ug/dL 232 - 386 ug/dL [facility] Iron/TIBC [Molar ratio] 30.9 % 15.0 - 57.0 % [facility] Iron [Mass/Vol] 105 ug/dL Normal 41-186 [facility] Comment on above: Order Comment: Speci men Type: BLOOD SPECIMEN Ordering Facility: [facility] Address: [address] [place] [address] Performed By: #### 1 825-9, 2063-07 #### [facility] CLIA [id number] [address] [place] [address] [place] Iron binding capacity [Mass/Vol] 340 ug/dL Normal 232-386 [facility] Comment on above: Order Comment: Speci men Type: BLOOD SPECIMEN Ordering Facility: [facility] Address: [address] [place] [address] Performed By: #### 1 825-9, 2063-07 #### [facility] CLIA [id number] [address] [place] [address] [place] Iron/TIBC [Molar ratio] 30.9 % Normal 15.0-57.0 [facility] Comment on above: Order Comment: Speci men Type: BLOOD SPECIMEN Ordering Facility: [facility] Address: [address] [place] [address] Performed By: #### 1 825-9, 2063-07 #### [facility] CLIA [id number] [address] [place], [place] [address] [place] [address] [place] Laboratory - Hematology and Cell countson 04-26-2024 Basophils/100 WBC (Bld) 0.5 % [facility] Eosinophils/100 WBC (Bld) 0.1 % [facility] Erythrocyte distribution width (RBC) [Ratio] 12.5 % 11.5 - 15.0 % [facility] Hematocrit (Bld) [Volume fraction] 46.1 % High 36.0 - 46.0 % [facility] Hemoglobin (Bld) [Mass/Vol] 15.5 g/dL 11.5 - 15.5 g/dL [facility] Lymphocytes/100 WBC (Bld) 22.6 % [facility] MCHC (RBC) [Mass/Vol] 33.6 g/dL 30.5 - 36.0 g/dL [facility] MCV (RBC) [Entitic vol] 95.1 fL 80.0 - 100.0 fL [facility] Monocytes/100 WBC (Bld) 3.3 % [facility] Neutrophils/100 WBC (Bld) 70.8 % [facility] RBC (Bld) [#/Vol] 4.85 10*6/uL 3.90 - 5.2 0 m/uL [facility] Mitochondria Ab IF Ql (S)on 04-26-2024 Mitochondria M2 Ab IA Qn (S) 2.8 Units Normal <=20.0 [facility] Comment on above: Order Comment: Speci men Type: BLOOD SPECIMEN Ordering Facility: [facility] Address: [address] [place] [address] Performed By: #### 1 825-9, 2063-07 #### [facility] CLIA [id number] [address] [place], [place] [address] [address] [place] Mitochondria M2 Ab Ql (S) Negative Normal Negative [facility] Comment on above: Order Comment: Speci men Type: BLOOD SPECIMEN Ordering Facility: [facility] Address: [address] [place] [address] Result Comment: Anti -mitochondrial antibody test is used as an aid in diagnosis of primary biliary cholangitis. Clinical correlation is required. Performed By: #### 1 825-9, 2064-4 #### [facility] CLIA [id number] [address] [place] [address] [place] [address] [place] No Panel Informationon 04-26 [facility] Interpretation and review of laboratory results Abnormal [facility] PT panel Coag (PPP)on 2024 INR Coag (PPP) [Relative time] 0.9 {INR} 0.9 - 1.3 [facility] Comment on above: Vitamin K Antagonist (VKA) Therapeutic Range: INR 2 to 3 (Target INR of 2.5) Note: For patients treated with VKA drugs, such as warfarin, the [employer] 2012 Guideline recommends [...] to 3.5 (target INR of 3). Linda GH, et al. Chest 2012, 141:7S-47S Lit RA, et al. [facility] 2017, 70: 252-289 Interpretation and review of laboratory results Normal [facility] PT Coag (PPP) [Time] 10.6 s [facility] INR Coag (PPP) [Relative time] 0.9 {INR} Normal 0.9-1.3 [facility] Comment on above: Order Comment: Speci men Type: BLOOD SPECIMEN Ordering Facility: [facility] Address: [address] [place] [address] Result Comment: Maya min K Antagonist (VKA) Therapeutic Range: INR 2 to 3 (Target INR of 2.5) Note: For patients treated with VKA drugs, such as warfarin, the [employer] 2012 Guideline recommends [...] to 3.5 (target INR of 3). Linda GH, et al. Chest 2012, 141:7S-47S Lit RA, et al. [facility] 2017, 70: 252-289 Performed By: #### 3 4528-0 #### [facility] CLIA [id number] [address] [place] [address] [place] PT Coag (PPP) [Time] 10.6 s Normal 9.7-13.0 [facility] Comment on above: Order Comment: Speci men Type: BLOOD SPECIMEN Ordering Facility: [facility] Address: [address] [place] [address] Performed By: #### 3 4528-0 #### [facility] CLIA [id number] [address] [place] [address] [place] Smooth muscle Ab Ql (S)on ACTIN SMOOTH MUSCLE IGG QUALITATIVE Negative Normal Negative [facility] Comment on above: Order Comment: Dionicioi chetna Type: BLOOD SPECIMEN Ordering Facility: [facility] Address: [address] [place] [address] Performed By: #### 1 825-9, 4-4 #### [facility] CLIA [id number] [address] [place], [place] [address] [place] [address] [place] ACTIN SMOOTH MUSCLE IGG QUANTITATIVE 5 Units Normal <20 [facility] Comment on above: Order Comment: Speci men Type: BLOOD SPECIMEN Ordering Facility: [facility] Address: [address] [place] [address] Performed By: #### 1 825-9, 2064-4 #### [facility] CLIA [id number] [address] [facility] [place] [address] [place] [facility] ECHOon 04-09-2024 Echocardiography Echocardiography Report: Transthoracic Echo [facility] Date of service: 04/09/2024 3:28:57 PM Ordering physician: SOLO MORA Indication: Syncope Technologist: Josephine West [facility] Interpreting physician: Sheri Ac MD PATIENT: Name: [...] * * Final * * * CC [employer] [facility] : [id number] [facility] 04-05-2024 [facility] Telephone (CARDMN) ORION HARPER ([id number]) 1990 F Date Time Provider Department 04/05/24 SOLO MORA During your visit today, we recorded the following information about you: Criss Mccrary 04/05/2024 1:02 PM Signed Outside ep I have a copy @ my desk Criss Velez 04/09/2024 11:49 AM Signed April 09, 2024 Patient Contact Number: [phone] Patient last seen within the last year: Yes 12/15 Reason For Call: Test Results Zio- 12/2023 Physician: Dr. Mora Patient was informed that non-urgent calls may be returned within the next three business days. Yes Joy Dahl RN 04/09/2024 2:14 PM Signed Cardiac clearance and office noted faxed to [facility]. In regards to Zio monitor. Dr [...] Medical Records [[id number]] Cmt: Cardio Clearance [facility] Results [95] Cmt: Zio Prescriptions as [...] Status:Closed by CRISS MCCRARY on 04/05/24 Normal [facility] HEMOGLOBIN A1con 04-04-2024 HEMOGLOBIN A1c 5.5 % [...] of diabetes in children. According to [place] [employer] (ADA) guidelines, hemoglobin A1c <7.0% represents optimal control in non- diabetic patients. Different metrics may apply to specific patient populations. Standards of Medical Care in Diabetes(ADA). Performed By: #### 4 96, 123 #### [facility] [place] [id number] [place]: Tim Dotson MD POTASSIUMon 04-04-2024 Potassium [Moles/Vol] 3.7 mmol/L Normal 3.5-5.[address] [facility] Comment on above: Order Comment: FASTI NG:YES FASTING: YES Performed By: #### 4 96, 323 #### [facility] [address] [place]: Tim Stark 04-02-2024 [facility] Telephone (CARDMN) MEREDITHORION ([id number]) 1990 F Date Time Provider Department 04/02/24 SOLO MORA During your visit today, we recorded the following information about you: Criss Mccrary 04/02/2024 3:53 PM Signed This 'Ankle Surgery Clearance' was faxed over to Dr. Giovani Vivardomi Hieu (PCP) @ [phone] for signing. I spoke with the patient. [...] Received Outside Medical Records [[id number]] Cmt: [facility] [place] Prescriptions as of 04/02/2024 - amphetamine-dextroamp hetamine [...] Status:Closed by CRISS MCCRARY on 04/02/24 Normal [facility] IGP,APTIMA HPV,AGE GDLNon AGE GDLN ACOG TESTING Note . [facility] Comment on above: TESTS RESULT FLAG UN ITS REF RANGE LAB Clinician Provided Cytology Information Source.............Vagina No. of containers..01 ThinPrep Vial Age Skip FERNANDES Starla... 28 FLAG LEGEND: L-Low Normal,H-High Normal,LL-Alert Low,HH-Alert High <-Panic Low,>-Panic High,A-Abnormal,AA-Critical Abnormal Performed at: 01 =G [address] [address] Zoraida Hawkins MD, HPV APTIMA Negative Negative [facility] Comment on above: This nucleic acid am plification test detects fourteen high- risk HPV types (16,18,31,33,35,39,45,51,52,56,58,59,66,68) without differentiation. Performed at: =G - [address] [id number] E Commerce Director: Zoraida Hawkins MD, Phone: [phone] Performed at: - [address] [id number] E Commerce Director: Zoraida Hawkins MD, Phone: [phone] IGP, APTIMA HPV, RFX 16/18,45 Note . [facility] Comment on above: TESTS RESULT FLAG UN ITS REF RANGE LAB DIAGNOSIS: 02 NEGATIVE FOR INTRAEPITHELIAL LESION OR MALIGNANCY. Specimen adequacy: 02 Satisfactory for evaluation. Performed by: 02 Zehra Brush, Easement Man ([facility]) . 02 Note: Note 02 The Pap [...] <-Panic Low,>-Panic High,A-Abnormal,AA-Critical Abnormal Performed at: [address] [address] Zoraida Hawkins MD, [facility] Ambulatory Visit Summaryon 0 12-28-2023 Ambulatory Visit Summary Ambulatory Visit Summary ORION HARPER :1990 Visit Date:12/28/2023 Ambulatory Visit Instructions Your Diagnosis Recurrent UTI Kidney stones Smoker Your Care Team Attending Physician - OLEG OSEI, BHAVESH aPtterson Primary Care Physician - HIEU FRIEDMAN, GIOVANI [...] FRIEDMAN, Madhuri Kendrick Where: [facility] [address] [address]- Medications What How Much When Instructions Unchanged [...] for choosing us for your care. Normal [facility] Urology Office/Clinic Noteon 12-28-2023 Urology Office/Clinic [...] UTI, # 20 cap(s), Refills(s) 2, Pharmacy: [facility]/pharmacy #[id number], 158, cm, 12/28/23 15:24:00 EDT, Height/Length Dosing, 87, kg, 12/28/23 15:24:00 EDT, Weight Dosing E&M of Est. Patient Moderate 30-39 Min 34768 2. Kidney stones (N20.0: Calculus of kidney) [...] UTI, # 20 cap(s), Refills(s) 2, Pharmacy: [facility]/pharmacy #[id number], 158, cm, 12/28/23 15:24:00 EDT, Height/Length Dosing, 87, kg, 12/28/23 15:24:00 EDT, Weight Dosing E&M of Est. Patient Moderate 30-39 Min 56562 Urnls Dip Stick Auto w/o Microscopy POC 33018 3. Smoker (F17.200: Nicotine dependence, unspecified, uncomplicated) cessation encouraged Ordered: cephalexin, See Instructions, 1 cap po after intercourse to prevent UTI, # 20 cap(s), Refills(s) 2, Pharmacy: [facility]/pharmacy #[id number], 158, cm, 12/28/23 15:24:00 EDT, Height/Length Dosing, 87, kg, 12/28/23 15:24:00 EDT, Weight Dosing E&M of Est. Patient Moderate 30-39 Min 90858 Follow-up With When Contact Information BHAVESH DEJESUS PA-C, URL Within 1 year Additional Instructions: Patient Education Kidney Stones, [id number] Problem List/Past Medical History Ongoing Kidney stones [...] vaccine, inactiva (more content not included)... Normal [facility] Comment on above: Result Comment: Elec tronically Signed By: BHAVESH DEJESUS PA-C\.br\Date and Time Signed: 12/28/23 16:01 EDT Ibrahima 12-19-2023 CNOV Office Visit (CARDMN ) ORION HARPER ([id number]) 1990 F Date Time Provider Department 12/19/23 2:45 PM SOLO MORA During your visit today, we recorded the following information about you: Pulse Blood pressure Weight Height 94/minute 127/91 85.3 kg 1.575 m Solo Mora MD 12/28/2023 2:49 AM Signed [facility] [place] [facility]er Department of Cardiovascular Medicine SECTION OF CARDIAC PACING and ELECTROPHYSIOLOGY OUTPATIENT VISIT DATE December 19, 2023 OUTPATIENT VISIT TYPE NEW PRIMARY CARE PHYSICIAN: Giovani Hagen MD [address] [place] [address] CHIEF COMPLAINT: Syncope, cardiac evaluation for family [...] had any workup done including Stress Echo, court recording monitor or 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 Reports symptoms of [...] No per (more content not included)... Normal [facility] ECG COMPLETEon 12-19-2023 ECG COMPLETE Ventricular Rate : 8 8 BPM Atrial Rate : 88 BPM P-R Interval : 148 ms QRS Duration : 78 ms Q-T Interval : 380 ms QTC Calculation(Bazett) : 459 ms Calculated P [place] : 62 degrees Calculated R [place] : 55 degrees Calculated T [place] : 38 degrees NORMAL SINUS RHYTHM NORMAL ECG Confirmed by MD BAH HEBA ([id number]) on 12/30/2023 6:45:12 PM NAME : ORION HARPER PID : [id number] : 1990 Gender : Female Race : Other ORD : [id number] Procedure Date : Dec 19 2023 13:51:58 Edit Date : Dec 30 2023 18:45:15 Diagnosis: NORMAL SINUS RHYTHM NORMAL ECG Confirmed by MD BAH HEBA ([id number]) on 12/30/2023 6:45:12 PM Test Reason : Location : 314 : J14 J1-4 Overread By : MD BAH HEBA Edited By : MD BAH HEBA Referred By : , Acquired by : CHELSEY JOSEPH [facility] ALL CBC WITH AUTO DIFFon BASOPHILS ABSOLUTE AUTO 0.0 [facility] Basophils/100 WBC (Bld) 0.4 % 0.2 - 2.0 % [facility] Eosinophils/100 WBC (Bld) 2.8 % 0.9 - 7.0 % [facility] Erythrocyte distribution width (RBC) [Ratio] 12.4 % 11.0 - 15.0 % [facility] Hematocrit (Bld) [Volume fraction] 41.9 % 36.0 - 48.0 % [facility] Hemoglobin (Bld) [Mass/Vol] 14.2 g/dL 12.0 - 16.0 g/dL [facility] IMMATURE GRANULOCYTES ABS AUTO 0.03 [facility] Healthcare Immature granulocytes/100 WBC (Bld) 0.4 % 0.0 - 0.5 % [facility] LYMPHOCYTES ABSOLUTE AUTO 2.8 [facility] Lymphocytes/100 WBC (Bld) 35.6 % 20.5 - 60.0 % [facility] MCH (RBC) [Entitic mass] 32.1 pg 26.7 - 34.0 pg [facility] MCHC (RBC) [Mass/Vol] 33.9 g/dL 29.9 - 35.2 g/dL [facility] MCV (RBC) [Entitic vol] 94.8 fL 81.0 - 99.0 fL [facility] MONOCYTES ABSOLUTE AUTO 0.5 [facility] Monocytes/100 WBC (Bld) 6.0 % 1.7 - 12.0 % [facility] NEUTROPHILS ABSOLUTE AUTO 4.3 [facility] Neutrophils/100 WBC (Bld) 54.8 % 43.0 - 75.0 % [facility] Platelet mean volume (Bld) [Entitic vol] 10.4 fL 9.5 - 13.5 fL [facility] TBH EO # 0.2 [facility] TB PLT 265 [facility] TB RBC 4.42 [facility] TB WBC 7.8 [facility] CNPNon 11-02-2023 CNPN Telephone (CARDMN) ORION HARPER ([id number]) 1990 F Date Time Provider Department 11/02/23 SOLO MORAMN During your visit today, we [...] Status:Closed by CRISS MCCRARY on 11/02/23 Normal [facility] Extra Lavender Tubeon 2022 Extra Lavender Tube Normal [facility] Comment on above: Performed By: #### X LAV, LIVP, LIP #### [facility] Lab [address] [place] [address] E Commerce Director: Ronald Pearce MD Lipaseon 03-24-2023 Lipase [Catalytic activity/Vol] 260 U/L High 13-60 [facility] Comment on above: Performed By: #### X LAV, LIVP, LIP #### [facility] Lab [address] [place] [address] E Commerce Director: Ronald Pearce MD Liver Profileon 03-24-2023 Albumin [Mass/Vol] 3.5 g/dL Normal 3.5-5.2 [facility] Comment on above: Performed By: #### X LAV, LIVP, LIP ####[facility] [id number] [place] [address] Lab Director: Ronald Pearce MD Alkaline Phos 321 U/L High 35-104 [facility] Comment on above: Performed By: #### X LAV, LIVP, LIP ####[facility] [id number] [facility] [place] [address] Lab Director: Ronald Pearce MD ALT [Catalytic activity/Vol] 137 U/L High 5-33 [facility] Comment on above: Performed By: #### X LAV, LIVP, LIP ####[facility] [address] [facility] [place] [address] Lab Director: Ronald Pearce MD AST [Catalytic activity/Vol] 60 U/L High <32 [facility] Comment on above: Performed By: #### X LAV, LIVP, LIP ####[facility] [id number] [facility] [place] [address] Lab Director: Ronald Pearce MD Bilirubin [Mass/Vol] 1.0 mg/dL Normal 0.3-1.2 [facility] Comment on above: Performed By: #### X LAV, LIVP, LIP ####[facility] [address] [facility] [place] [address] Lab Director: Ronald Pearce MD Bilirubin, Indirect 0.4 mg/dL Normal 0.0-1.0 [facility] Comment on above: Performed By: #### X LAV, LIVP, LIP ####[facility] [address] [place] [address] Lab Director: Ronald Pearce MD Bilirubin.indirect [Mass/Vol] 0.6 mg/dL High <0.3 [facility] Comment on above: Performed By: #### X LAV, LIVP, LIP ####[facility] [address] [place] [address] lab Director: Ronald Pearce MD Protein [Mass/Vol] 5.7 g/dL Low 6.4-8.3 [facility] Comment on above: Performed By: #### X LAV, LIVP, LIP ####[facility] [id number] [place], [place] [address]ia [place] [address] lab Director: Ronald Pearce MD Extra Lavender Tubeon 2022 Extra Lavender Tube Normal [facility] Comment on above: Performed By: #### L IVP, XLAV ####[facility] [id number] [place] [address].[place] [address] lab Director: Ronald Pearce MD FL CHOLANGIOGRAM [...] Danny Cole MD 03/23/23 Final result Normal [facility] Liver Profileon 03-23-2023 Albumin [Mass/Vol] 3.5 g/dL Normal 3.5-5.2 [facility] Comment on above: Performed By: #### L IVP, XLAV ####[facility] [address] [place] [address] Lab Director: Ronald Pearce MD Alkaline Phos 293 U/L High 35-104 [facility] Comment on above: Performed By: #### L IVP, XLAV ####[facility] [address] [place] [address] Lab Director: Ronald Pearce MD ALT [Catalytic activity/Vol] 111 U/L High 5-33 [facility] Comment on above: Performed By: #### L IVP, XLAV ####[facility] [address] [place] [address] Lab Director: Ronald Pearce MD AST [Catalytic activity/Vol] 43 U/L High <32 [facility] Comment on above: Performed By: #### L IVP, XLAV ####[facility] [address] [place] [address] Lab Director: Ronald Pearce MD Bilirubin [Mass/Vol] 2.6 mg/dL High 0.3-1.2 [facility] Comment on above: Performed By: #### L IVP, XLAV ####[facility] [address] [place] [address] Lab Director: Ronald Pearce MD Bilirubin, Indirect 0.8 mg/dL Normal 0.0-1.0 [facility] Comment on above: Performed By: #### L IVP, XLAV ####[facility] [address] [place] [phone] Director: Ronald Pearce MD Bilirubin.indirect [Mass/Vol] 1.8 mg/dL High <0.3 [facility] Comment on above: Performed By: #### L IVP, XLAV ####[facility] [address] [place] [address] lab Director: Ronald Pearce MD Protein [Mass/Vol] 5.7 g/dL Low 6.4-8.3 [facility] Comment on above: Performed By: #### L IVP, XLAV ####[facility] [id number] [place] [address] lab Director: Ronald Pearce MD Surgical Pathology Reporton 03-23-2023 Surgical Pathology Report (NOTE) Path Number: [id number] -- Diagnosis -- A. GALLBLADDER AND CONTENTS, CHOLECYSTECTOMY: Cholelithiasis. Lulú Javed M.D. Electronically Signed [facility] [place]03/27/2023 Clinical Information Pre-op Diagnosis: ACUTE PANCREATITIS, UNSPECIFIED [...] lesions or periductal lymph nodes are identified. [employer] sections 1c. tm SM/tb1:03/24/2023 Microscopic Description Microscopic examination performed. Processing Lab: [address] [phone] Interpretation Performed at [address] [phone] SURGICAL PATHOLOGY CONSULTATION Patient Name: ORION HARPER Med Rec: [id number] [facility] PATHOLOGISTS [facility] ANATOMIC PATHOLOGY [address] [place] [phone] Normal [facility] CBC with Diffon 03-22-2023 Abs. Basophil <0.03 Normal 0.00-0.20 [facility] Comment on above: Performed By: #### C DP, LIP, CMPX #### [facility] Lab [address] [place] [phone] E Commerce Director: Ronald Pearce MD #### TRIG #### [address] [address] E Commerce Director: Elio Marley MD Abs.Imm.Granulocyte 0.03 k/uL Normal 0.00-0.30 [facility] Comment on above: Performed By: #### C DP, LIP, CMPX #### [facility] Lab [address] [place] [address] [phone] E Commerce Director: Ronald Pearce MD #### TRIG #### [address] [id number] E Commerce Director: Elio Marley MD Abs.Neutrophil (Seg) 6.89 k/uL Normal 1.50-8.10 [facility] Comment on above: Performed By: #### C DP, LIP, CMPX #### [facility] Lab [address] [place] [phone] E Commerce Director: Ronald Pearce MD #### TRIG #### [address] [address] E Commerce Director: Elio Marley MD Basophils/100 WBC (Bld) 0 % Normal 0-2 [facility] Comment on above: Performed By: #### C DP, LIP, CMPX #### [facility] Lab [address] [place] [address] E Commerce Director: Ronald Pearce MD #### TRIG #### [address] [address] E Commerce Director: Elio Marley MD Eosinophils (Bld) [#/Vol] 0.07 10*3/uL Normal 0.00-0.44 [facility] Comment on above: Performed By: #### C DP, LIP, CMPX #### [facility] Lab [address] [place] [address] E Commerce Director: Ronald Pearce MD #### TRIG #### [address] [address] E Commerce Director: Elio Marley MD Eosinophils/100 WBC (Bld) 1 % Normal 1-4 [facility] Comment on above: Performed By: #### C DP, LIP, CMPX #### [facility] Lab [facility] [place] [address] E Commerce Director: Ronald Pearce MD #### TRIG #### [address] [address] E Commerce Director: Elio Marley MD Erythrocyte distribution width (RBC) [Ratio] 12.2 % Normal 11.8-14.4 [facility] Comment on above: Performed By: #### C DP, LIP, CMPX #### [facility] Lab [address] [place] [address] E Commerce Director: Ronald Pearce MD #### TRIG #### [address] [address] E Commerce Director: Elio Marley MD Hematocrit (Bld) [Volume fraction] 36.9 % Normal 36.3-47.1 [facility] Comment on above: Performed By: #### C DP, LIP, CMPX #### [facility] Lab [address] [place] [address] E Commerce Director: Ronald Pearce MD #### TRIG #### [address] [address] E Commerce Director: Elio Marley MD Hemoglobin (Bld) [Mass/Vol] 12.1 g/dL Normal 11.9-15.1 [facility] Comment on above: Performed By: #### C DP, LIP, CMPX #### [facility] Lab [address] [place] [address] E Commerce Director: Ronald Pearce MD #### TRIG #### [address] [address] E Commerce Director: Elio Marley MD Immature granulocytes/100 WBC (Bld) 0 % Normal 0 [facility] Comment on above: Performed By: #### C DP, LIP, CMPX #### [facility] Lab [address] [place] [address] E Commerce Director: Ronald Pearce MD #### TRIG #### [address] [address] E Commerce Director: Elio Marley MD Lymphocytes (Bld) [#/Vol] 1.62 10*3/uL Normal 1.10-3.70 [facility] Comment on above: Performed By: #### C DP, LIP, CMPX #### [facility] Lab [facility] [place] [address] E Commerce Director: Ronald Pearce MD #### TRIG #### [address] [address] E Commerce Director: Elio Marley MD Lymphocytes/100 WBC (Bld) 18 % Low 24-43 [facility] Comment on above: Performed By: #### C DP, LIP, CMPX #### [facility] Lab [address] [place] [address] E Commerce Director: Ronald Pearce MD #### TRIG #### [address] [address] E Commerce Director: Elio Marley MD MCH (RBC) [Entitic mass] 32.5 pg Normal 25.2-33.5 [facility] Comment on above: Performed By: #### C DP, LIP, CMPX #### [facility] Lab [address] [place] [address] E Commerce Director: Ronald Pearce MD #### TRIG #### [address] [address] E Commerce Director: Elio Marley MD MCHC (RBC) [Mass/Vol] 32.8 g/dL Normal 28.4-34.8 [facility] Comment on above: Performed By: #### C DP, LIP, CMPX #### [facility] Lab [address] [place] [address] E Commerce Director: Ronald Pearce MD #### TRIG #### [address] [address] E Commerce Director: Elio aMrley MD MCV (RBC) [Entitic vol] 99.2 fL Normal 82.6-102.9 [facility] Comment on above: Performed By: #### C DP, LIP, CMPX #### [facility] Lab [address] [place] [address] E Commerce Director: Ronald Pearce MD #### TRIG #### [address] [address] E Commerce Director: Elio Marley MD Monocytes (Bld) [#/Vol] 0.57 10*3/uL Normal 0.10-1.20 [facility] Comment on above: Performed By: #### C DP, LIP, CMPX #### [facility] Lab [facility] [place] [address] E Commerce Director: Ronald Pearce MD #### TRIG #### [address] [address] E Commerce Director: Elio Marley MD Monocytes/100 WBC (Bld) 6 % Normal 3-12 [facility] Comment on above: Performed By: #### C DP, LIP, CMPX #### [facility] Lab [address] [place] [address] E Commerce Director: Ronald Pearce MD #### TRIG #### [address] [address] E Commerce Director: Elio Marley MD Neutrophil (Seg) 75 % High 36-65 [facility] Comment on above: Performed By: #### C DP, LIP, CMPX #### [facility] Lab [address] [place] [address] E Commerce Director: Ronald Pearce MD #### TRIG #### [address] [address] E Commerce Director: Elio Marley MD NRBC Automated 0.0 per 100 WBC Normal 0.0 [facility] Comment on above: Performed By: #### C DP, LIP, CMPX #### [facility] Lab [address] [place] [address] E Commerce Director: Ronald Pearce MD #### TRIG #### [address] [address] E Commerce Director: Elio Marley MD Platelet mean volume (Bld) [Entitic vol] 10.7 fL Normal 8.1-13.5 [facility] Comment on above: Performed By: #### C DP, LIP, CMPX #### [facility] Lab [address] [place] [address] E Commerce Director: Ronald Pearce MD #### TRIG #### [address] [address] E Commerce Director: Elio Marley MD Platelets (Bld) [#/Vol] 188 10*3/uL Normal 138-453 [facility] Comment on above: Performed By: #### C DP, LIP, CMPX #### [facility] Lab [address] [place] [address] E Commerce Director: Ronald Pearce MD #### TRIG #### [address] [address] E Commerce Director: Elio Marley MD RBC (Bld) [#/Vol] 3.72 10*6/uL Low 3.95-5.11 [facility] Comment on above: Performed By: #### C DP, LIP, CMPX #### [facility] Lab [address] [place] [address] E Commerce Director: Ronald Pearce MD #### TRIG #### [address] [address] E Commerce Director: Elio Marley MD WBC (Bld) [#/Vol] 9.2 10*3/uL Normal 3.5-11.3 [facility] Comment on above: Performed By: #### C DP, LIP, CMPX #### [facility] Lab [address] [place] [address] E Commerce Director: Ronald Pearce MD #### TRIG #### [address] [address] E Commerce Director: Elio Marley MD Comp Metabolic Pr/rfx MGon 1 05-22-2022 Albumin [Mass/Vol] 3.5 g/dL Normal 3.5-5.2 [facility] Comment on above: Performed By: #### C DP, LIP, CMPX #### [facility] Lab [facility] [place] [address] E Commerce Director: Ronald Pearce MD #### TRIG #### [address] [address] E Commerce Director: Elio Marley MD Alkaline Phos 157 U/L High 35-104 [facility] Comment on above: Performed By: #### C DP, LIP, CMPX #### [facility] Lab [address] [place] [address] E Commerce Director: Ronald Pearce MD #### TRIG #### [address] [address] E Commerce Director: Elio Marley MD ALT [Catalytic activity/Vol] 131 U/L High 5-33 [facility] Comment on above: Performed By: #### C DP, LIP, CMPX #### [facility] Lab [address] [place] [address] E Commerce Director: Ronald Pearce MD #### TRIG #### [address] [address] E Commerce Director: Elio Marley MD Anion gap [Moles/Vol] 11 mmol/L Normal 9-17 [facility] Comment on above: Performed By: #### C DP, LIP, CMPX #### [facility] Lab [address] [place] [address] E Commerce Director: Ronald Pearce MD #### TRIG #### [address] [address] E Commerce Director: Elio Marley MD AST [Catalytic activity/Vol] 34 U/L High <32 [facility] Comment on above: Performed By: #### C DP, LIP, CMPX #### [facility] Lab [address] [place] [address] E Commerce Director: Ronald Pearce MD #### TRIG #### [address] [address] E Commerce Director: Elio Marley MD Bilirubin [Mass/Vol] 1.9 mg/dL High 0.3-1.2 [facility] Comment on above: Performed By: #### C DP, LIP, CMPX #### [facility] Lab [address] [place] [address] E Commerce Director: Ronald Pearce MD #### TRIG #### [address] [address] E Commerce Director: Elio Marley MD BUN/CRE Ratio 17 Normal 9-20 [facility] Comment on above: Performed By: #### C DP, LIP, CMPX #### [facility] Lab [address] [place] [address] E Commerce Director: Ronald Pearce MD #### TRIG #### [address] [address] E Commerce Director: Elio Marley MD Calcium [Mass/Vol] 8.1 mg/dL Low 8.6-10.4 [facility] Comment on above: Performed By: #### C DP, LIP, CMPX #### [facility] Lab [address] [place] [address] E Commerce Director: Ronald Pearce MD #### TRIG #### [address] [address] E Commerce Director: Elio Marley MD Chloride [Moles/Vol] 105 mmol/L Normal 98-107 [facility] Comment on above: Performed By: #### C DP, LIP, CMPX #### [facility] Lab [facility] [place] [address] E Commerce Director: Ronald Pearce MD #### TRIG #### [address] [address] E Commerce Director: Elio Marley MD CO2 [Moles/Vol] 21 mmol/L Normal 20-31 [facility] Comment on above: Performed By: #### C DP, LIP, CMPX #### [facility] Lab [address] [place] [address] E Commerce Director: Ronald Pearce MD #### TRIG #### [address] [address] E Commerce Director: Elio Marley MD Creatinine [Mass/Vol] 0.6 mg/dL Normal 0.5-0.9 [facility] Comment on above: Performed By: #### C DP, LIP, CMPX #### [facility] Lab [address] [place] [address] E Commerce Director: Ronald Pearce MD #### TRIG #### [address] [address] E Commerce Director: Elio Marley MD GFR/1.73 sq M.predicted among non-blacks MDRD (S/P/Bld) [Vol rate/Area] mL/min/{1.73_m2} Normal >60 [facility] Comment on above: Result Comment: These [...] C DP, LIP, CMPX #### [facility] Lab [facility] [place] [address] E Commerce Director: Ronald Pearce MD #### TRIG #### [address] [address] E Commerce Director: Elio Marley MD Glucose [Mass/Vol] 75 mg/dL Normal 70-99 [facility] Comment on above: Performed By: #### C DP, LIP, CMPX #### [facility] [facility] [address] [place] [address] E Commerce Director: Ronald Pearce MD #### TRIG #### [address] [address] E Commerce Director: Elio Marley MD Potassium [Moles/Vol] 4.0 mmol/L Normal 3.7-5.3 [facility] Comment on above: Performed By: #### C DP, LIP, CMPX #### [facility] [address] [place] [address] E Commerce Director: Ronald Pearce MD #### TRIG #### [address] [address] E Commerce Director: Elio Marley MD Protein [Mass/Vol] 5.7 g/dL Low 6.4-8.3 [facility] Comment on above: Performed By: #### C DP, LIP, CMPX #### [facility] [address] [place] [address] E Commerce Director: Ronald Pearce MD #### TRIG #### [address] [address] E Commerce Director: Elio Marley MD Sodium [Moles/Vol] 137 mmol/L Normal 135-144 [facility] Comment on above: Performed By: #### C DP, LIP, CMPX #### [facility] [address] [place] [address] E Commerce Director: Ronald Pearce MD #### TRIG #### [address] [address] E Commerce Director: Elio Marley MD Urea nitrogen [Mass/Vol] 10 mg/dL Normal 6-20 [facility] Comment on above: Performed By: #### C DP, LIP, CMPX #### [facility] [address] [place] [address] E Commerce Director: oRnald Pearec MD #### TRIG #### [address] [address] E Commerce Director: Elio Marley MD K (Potassium)on 03-22-2023 Potassium [Moles/Vol] 3.8 mmol/L Normal 3.7-5.3 [facility] Comment on above: Performed By: #### K #### [facility] [address] [place] [address] E Commerce Director: Ronald Pearce MD Lipaseon 03-22-2023 Lipase [Catalytic activity/Vol] 198 U/L High 13-60 [facility] Comment on above: Performed By: #### C DP, LIP, CMPX #### [facility] [address] [place] [address] E Commerce Director: Ronald Pearce MD #### TRIG #### [address] [address] E Commerce Director: Elio Marley MD MRI ABDOMEN WO CONTRAST [...] Daniel Hooker MD 03/22/23 Final result Normal [facility] Triglycerideson 03-22-2023 Triglyceride [Mass/Vol] 102 mg/dL Normal 0-149 [facility] Comment on above: Result Comment: Triglyceride Guidelines: <150 Desirable 150-199 Borderline 200-499 High >499 Very high Based on AHA Guidelines for fasting triglyceride, January 2012. Performed By: #### C DP, LIP, CMPX #### [facility] [address] [place] [address] E Commerce Director: Ronald Pearce MD #### TRIG #### [employer] [address] [place], [place] [id number] E Commerce Director: MD Lincoln Gordillo 03-20-2023 [facility] Telephone (FVPRAD) ORION HARPER ([id number]) 1990 F Date Time Provider Department 03/20/23 [...] Status:Closed by CHARLETTE CAMPUZANO on 03/20/23 Normal [facility] Ferritin [Mass/volume] in Se rum or PlasmaOrdered By: Erwin Hylton on 10-26-2022 Ferritin [Mass/Vol] 106.5 ng/mL 11.0-306.8 [facility] [place] GASTRIC EMPTYING SOLIDon 09-12-2022 [facility] Stomach Views for gastric emptying solid phase W radionuclide Izabella 09-12-2022 IMPRESSION: EVIDENCE OF DELAYED RATE OF GASTRIC EMPTYING OF SOLID MEAL. ABNORMAL STUDY: 36-50% RETENTION AT 4 HOURS IS CONSISTENT WITH SEVERE GASTROPARESIS. Supervisor Toy Assembly: PSCB Transcribe Date/Time: Sep 12 2022 3:02P Dictated by : LUZ MARINA VÁZQUEZ MD This examination was interpreted and the report reviewed and electronically signed by: LUZ MARINA VÁZQUEZ MD on Sep 12 2022 3:05PM [facility] * * *Final Report* * * DATE OF EXAM: Sep 12 2022 2:44PM [facility] 0017 - [place] GASTRIC EMPTYING SOLID / PROCEDURE REASON: Nausea [...] (rapid emptying is <30% retention at 1hr). [place] [facility] * * *Final Report* * * DATE OF EXAM: Sep 12 2022 2:44PM [facility] 0017 - [place] GASTRIC EMPTYING [...] 4 HOURS IS CONSISTENT WITH SEVERE GASTROPARESIS. Supervisor Toy Assembly: MINAL Transcribe Date/Time: Sep 12 2022 3:02P Dictated by : LUZ MARINA VÁZQUEZ MD This examination was interpreted and the report reviewed and electronically signed by: LUZ MARINA VÁZQUEZ MD on Sep 12 2022 3:05PM EST [facility] Radiology Study observation (narrative) [facility] Stomach Views for gastric emptying solid phase W radionuclide POOrdered By: Ccf Provider on 09-12-2022 [facility] EGD Study observation Miguelito bender 09-02-[address] 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 [employer] [facility] SURGICAL PATHOLOGYOrdered By : Padilla Jasmine on 09-01-2022 Case Report Surgical Pathology Report Case: [id number] Authorizing Provider: aCrol Winn MD Collected: 08/31/2022 03:04 PM Ordering Location: Ambulatory Surgery Received: 08/31/2022 09:20 PM Pathologist: Padilla Jasmine MD Specimens: A) - SMALL INTESTINE BIOPSY, r/o celiac B) - ANTRUM (STOMACH) BIOPSY, r/o hpylori C) - STOMACH BIOPSY, gastric body r/o hpylori [facility] Work Phone: Diagnosis Comment o4kszFRnBMXbjXHnOUQr N ZnnwvRcUGLlkZBgE5Izmi adSDwcFO1vNE9wnQdwfXE kkHBvLDQlCxPin0lbq695 sMApg3swOLPNfyyguDa2o OrxZ87ua0N2VmgeW71tcG MoPUZ7RFZbGRVkdDUnDQV gASF5OOPrrHLpK0yvAHId IK8lebsdHExrJUgxPWTge CP8HKKeqKJmR1BwSYHbCJ lwTNAjdqe0ApVmFe7sbDR yeTcyMFxwYXJkXHBsYWlu VAKwCbDaUXoyht0cT43kd WAwMNfgzOebYBThu89jn6 mnn5XksJ18RDI4WWGlnLh ubDYmHEXcqPy2JFS3nRBf NYqpkHwpyOO0P8h2ZEhlw HJhZXBpdGhlbGlhbCBseW 4fiT7aeTXka2noQuYLaTU pAMFonT9rpK3phcFjowPb pj19JNLlhWamTUm5PLCnQ WNpZmljOyBkaWZmZXJlbn OlWGbcQ12ed9umJXLbmQb cvuXfq484eTOlrH7tyQPf ZSBsYXRlbnQgIGNlbGlhY wMjkSO2CXztKSFqmXY5aU AccqTxWMJwXYXbKt9yuWb rFTIES4UZTZDrDB9wNAoy QdAhmXskjFUgO1NevEPnN Y95CJSwiKbrBUwyvtGnrF RpbmcgSGVsaWNvYmFjdGV lVGT9xT3gtYnsQA8jwdxy t0WkPOWiWkLgH92vspRcE ZFcTSborQgno2Avu0paM9 bvz0J3KYopxx1twQPkpM= = [facility] Work Phone: FINAL DIAGNOSIS x7dunWMtITGzcKPtXJHj N XvysmUgUNSahHZsD5Lafa fqOHueWF8rWZ2akBxkgJA slXXgBQWmAaAfh3kab583 xKKfb4pjCDVOpdfzoCo3b JlaB77xg3B8VfkrN98unH UbTQO4EMWhIWXbcUFbFBV wNBG4LDElhTSxL0clBHQr UX3oijzmYYkvDYhzUFMpo IX2HDIwxLEiZ4DfJSNwIC akDFQkxes2UfZtNz1doZK yeTcyMFxwYXJkXHBsYWlu LZRuBzCzAX2gHFHhNJraM GludGVzdGluZSwgYmlvcH G8KfzodP7vGQ2KuRHcsOL oppJjp3AehwYnNY54S44q YWC8uHSvMZ6dcx0miOP2o Zlmv9JyMUUlB0mfxGCxpR XlPMJvewGed3xsN7j0F1R hdGNoeSBpbmNyZWFzZSBp biBpbnRyYWVwaXRoZWxpY KtkaGffnLbuX4v5PTXeaR fjQCibzU4uYNRvHUVIwG5 nDUQbFQCxfoTmzW3uWNMw e6XyrGupgGoxCDFbLZGau PCuSiRavQJpSHB2aR6ygL Jkx9RjV4wbtYUyRVFarx4 ezXWpZKK4rOEmYBzyz2Xa bWNmb3ijbE5sXF0Da2Swk Oa5LYCqq1GuUBHfjULjRn KfgPFvHIP3fT7opUEhcut vuwlieRCri29pbd50gHsj IXAtpLVtctlyQ8nsrN4bU EhhgaZfQc8aBKI9y71oQ8 zhNADlOXenIKLvw0QmoLs cbGluZSAtSGVsaWNvYmFj zMUhBCP2sF2onYHxu9FzT 0yujSOoIEKgym1rwBYhJU Q4vMUpUJxnv8BysINuh5g amJ4yNY2Je1ZixYw1KXWm l5IxGQRzeGPzLcZtkUMzP XC7zC9wmRAxacdjulwgkG Ifg93smy42uGenKIAgwMP libyvB6wnRBD9 [facility] Work Phone: Gross Description y6vvvKSpVSMmaRCEDITw M KAnWW3xcZvzpKv7dEbhEK YnqvT8fZJeXMypu8blWJW 1e3rchfKDQzxkGPZhKUxv PRDihxmgCaN8WXktSCOih iwbEAz0MKtvUYRwvGE5ZE PcdRByV6FoRRYpMH2bkfu 0VUD1GAarETBwTxU3GIDh IhOqGgenZNw1JKWaanQ6E hj6THMqRHBfdZOxr3J5LS rhcyclCXWduMLnC008ADg be0PodAFuVRecmKNcIBWX QdonRtrhkDopj8VtbAJzG GlkIDUxMDAwIFxcbmggXF c0QAWuSNhazMZeHL9sqTg bOdqgoNmhw1RhvVGnCIar ZKKiRAErKGyyJSXbSX5EN eJbXIWfHVT0FKhpHiX7NG i7GFGKDwYkCvTgNsCrOAS jIeWkCZu5CFi6HWySOrSu LEZfXdVtLQInCnD0WFbcB yBcXHQgMiBcXGYgQXJpYW jiRPapuIOpVY1osAazuFD pbiBBLiBTTUFMTCBJTlRF M9CWJbKlEafINTKRGOIwu iANClxlcGljTmVzdERvYz EgDQpcbHRycGFyXGxpbjB ccmluMCANClxsdHJjaFxm wwZgTPSeL7IdxbCeYQesG JLmfa0jeMqjSKEuUFHnfP v8fXKnSNYaeYLaEYWwt0S eyTBqSVOcs2E7EDPck5Z1 GUTxD3ahMQevwNbfDxR3k yAxLjAgeCAwLjIgeCAwLj XcF77kKOOqoGWacNzpu1E oeIl0zYVjWZecZF9nOXBu YRHwFNO0RQ0hqVssOHXKH lxlcGljTmVzdERvYzBcdj F8WVJflUPjVTH8RZ8zTIN biqfmHVNnTGNxFBL5RFno hE69yWSeUYGpGDOrcJPys VxwbGFpbiANCntcKlxlcG coj7EfcKChAWznYXOpAZQ yDMdfOTGiCM2HFlWwUVVh CLA8YOvnZbK0OLj4HSIUF lMgIiAgMzExNDIyNzQiID k7IWo3ZKdOWnRjARCyRwR oSZH9RXA5VXwuZfJsKHDq MiBcXGYgQXJpYWwgXFxmb PCrYT9wtEhzpDYriyuzvj T6VIMzORzlDCFqNNDCVRN DTBMnD7GFBKTTVVwqOrvE UFNZXHBhciANClxlcGljT mVzdERvYzEgDQpcbHRycG FyXGxpbjBccmluMCANClx rqSEnhZznybAmPVMiB9Hd cvWzHWngJAYdqu6taOqeY WVuXZRlpOu7hBXkHMXqmX KwGCDqm2OqiENfPHIrz9V 0TSPuc0F6QDFpH1wzGBin iKckDnU1iqWkFvAgzGNsZ uChgNVmQgOaJ36cCJComR HwwAelf2OzlWz2sIQnMSm jKT5pOSCwIXJdAOK4SB2t bGluZSANClxlcGljTmVzd FUuRlOsnfZ7CGPxtMYeNV T0WI4tLLNkjrstHYAwNFG kEXN8ZXveqR07eFFhRWAq MTZccGFyfVxwbGFpbiANC qwqMprlpRpex0PyiTZsIV lkIDUxMDAyIFxcZGIgIE9 LTvCaOUFmHYK7KZxkZsW2 SXu2QVZSCgYvUvLgDqYkI QWtJjLfWHn8TWd3HSnFVa BfEDLwJqHjNOt1DlL8WXg yNyBcXHQgMiBcXGYgQXJp OAsiLVuloTVdZJ0siZgwf PRigqrvicL2IOWtPGwwAA SvXOUEE97GG2bsCsgEZXI ZXHBhciANClxlcGljTmVz dERvYzEgDQpcbHRycGFyX GxpbjBccmluMCANClxsdH MacRdzubXdIFKwT7BlhhX kTYytKGMtvf1boWeqXWJt HRBapZy5vDJsSMQzePYvO BSgz6KqrKSiFWUuh5W7UI Fgn0C1KXNpD8pwWYwblKm iYlA5spRnEndfgYQfGnOd tUMjNbLkA02iLMTkaPJnn Dasf7CocUn4qMOlANidMT 9fOWJxRMJoJXI4PD7jpTp aRISlUSNhunUTXpkMYE1a eSAxMSwgMjAyMyAxOjQxI MFKOS9mqRLpUV7FJQAmgl LIKnhfc6WaPGL8KN1jotI 0tO9oTORlwbCskk9vSGXk ySDFnAI6ACqpwtOtL4hsg cwbVTU2XOIjXUZ0E1cfHE LGrkKtZNHBkYQ8XPtqdwH pSI8HUBA9INc9HKNtodOL ClxlcGljTmVzdERvYzBcd iN6YWHguYIjNHS0CZ7nQA VgppryKDGgRHWoFJS3LIp obR26gPVeJJVpBMEcvPEc wJonaKKsacBDPxpsjV4gB cNfa1dlwIk5MSMAEdacrU VpfiqsuuY2CEEyg4arqOi lg7XjzCFyUJ1plQdkhT0v ZnMxNiANCn0= [facility] Work Phone: Performing Lab q6thsPBgZOXlkDJcKdCf M PXzQGEni6enIDYjnWNtDm EwMzNcZnRuYmpcdWMxXGR aZiPuh0grt562xKVte2tk NXFlTqX1fTMmNWLmoWEwZ 134ZNBrIXahg0jvd0QsMB LkeCHtf9W3ZRFEobgwrLh 3mZnbK35sd2B0OnyyL0ns ZXWwPUNtY9EsGH6zXEOdT mr6DMP5WOU1WPYjHPKhW4 DeBW6jQBUakMCzFXd6d0d xnUizQGKdEFF1m0pcGGel jdSrNN7crl1vjEa1v1vds zEgRGVmYXVsdCBQYXJhZ3 BkyJhpXi4cxHd6sPaaNrx hGPF6Dqn5BS7nnl86jgi9 aMwmYWKuprmmZaZ9YXbrE TKyjhnhXNu5GZohEYYnjB S4FHQhcNKgK1CeDElgRR7 vglp8YAX4DVuiDQBzJfR8 NDBcaGVhZGVyeTcyMFxmb 413WOJ9XnUpUB8sW8Qwr9 M3pF2dsVQpWDRlyRVlDpO qAVCkff8jgIPvQHylo7Np SED5dxO4xLLfdQCdFDLmH D91Gaurr2HkWgyzp9SzD6 6baMV1XSldy7dlZW2vYwO 1ozOuUGade4xizG5sDjO1 WDyuWB9pYU2oYJTuuV5jt mxjXHBnYnJkcmhlYWRccG qxduIeQd2rcGkfPCN7JWh sM3urgF2oOeQ3OLesE1yl hB3wKBl4QQaqlLK0UNQiu V9rZG9ulrhzf8vfYExfPW xiNWDxwyE3rjTdEMJueYV vA0YopA8fKVYqQH3xdodk d0jbOXV7NJgyWEQwQBG6O eClEMBrx7Vqnzm4McNph7 YuoRIdVFniT43rk374KGL vdkViX3yrbGExhmvqfLCo exnlAWlzouD9IDFqUBLtW WluXGYxXGZzMjJcbGFuZz EwMzNcaGljaFxmMVxkYmN bYDEpDOswP4wePzGcKzDv OxOYaPHamd0mqWodVAurm XUrmMQtqQB7jJ6xLIJbhj Fcgb3aUDHxxKRZrJI8YDf murYnA3wlaikzRGV0FHSz LQS6R1vsDUPEhlIhPPXeF YRitHFfTGLLEHF1AXY3ZC AnPHZPQXHkBLD8UJY0LZR wOTRccGFyXHBhclxwYXJk XHBsYWluXGYwXGZzMjRcc YampS3bTvWtIdHzSeldVE 2yIEWyQ2jhrYCvYMAvRWC gR6cgHyRgfU6rfVadNOuc ZjJcZnMyMlxsdHJjaCBMY HFnsmC8g2S0GHxblNQrld xmMVxmczIyXGxhbmcxMDM zEXapI8ghTlGeFVIswKln GUyvf8DcVBNdIEJhOaTwN PxhJRT7y0S7HPgimTKfcf DPEzQGJL8lrLXxqoriPW0 ELlxwYXJ9 [facility] Work Phone: [facility] Work Phone: EGD Study observation Narrat iveon 08-31-2022 Radiology Study observation (narrative) [facility] CITRATE URINE 24HRon 07-11- 023 Citric Acid, U, 24hr 472 mg/24 hr Normal 320-1240 [facility] Comment on above: Result Comment: This test was developed and its performance characteristics determined by [employer]. It has not been cleared or approved by the Food and Drug Administration. Performed By: #### [facility] #### [facility] [address] [address] [address] Li Nagel Citric Acid, Urine 472 mg/L Normal Undefined [facility] Comment on above: Performed By: #### A LPHPHN #### [facility] [address] [id number] Li Nagel OXALATE 24HR URINEon 023 Oxalates, Urine 19 mg/L Normal Undefined [facility] Comment on above: Performed By: #### O X24HR #### [facility] [address] [address] [address] Li Nagel Oxalates, Urine 24hr 19 mg/24 hr Normal 4-31 [facility] Comment on above: Performed By: #### O X24HR #### [facility] [address] [place] [address] Dr. Li Nagel MAGNESIUM 24HR URINEon 07-09 Magnesium 24hr Urine 45.0 mg/24 hr Normal 12.0-293.0 [facility] Comment on above: Performed By: #### I MMUN G #### [facility] [address] [address] [address] Li Nagel Magnesium UR 4.5 mg/dL Normal Not Estab. [facility] Comment on above: Performed By: #### I MMUN G #### [facility] [address] [place] [address] Dr. Li Nagel PHOSPHORUS 24HR URINEon 06-22 Phosphorus, Urine 51.4 mg/dL Normal Not Estab. [facility] Comment on above: Performed By: #### P HOS 24 #### [facility] [address] [address] [address] Li Nagel Phosphorus, Urine 24hr 514 mg/24 hr Normal 261-1078 [facility] Comment on above: Performed By: #### P HOS 24 #### [facility] [address] [place] [address] Dr. Li Nagel URIC ACID 24 HR URINEon 06-22 Uric Acid, Urine 64.0 mg/dL Normal Not Estab. [facility] Comment on above: Performed By: #### A LPHPHN #### [facility] [address] [place] [address] Dr. Li Nagel Uric Acid, Urine 24hr 640.0 mg/24 hr Normal 173.7-902. 1 [facility] Comment on above: Performed By: #### A LPHPHN #### [facility] [address] [place] [address] Dr. Li Nagel CALCIUM 24 HR URINEon 2022 CALC, 24 HR UR 155.0 mg/24 hr Normal 100.0-300.0 [facility] Comment on above: Performed By: #### I MMUN G #### [facility] [address] [place] [address] Dr. Li Nagel UR CALCIUM 15.5 mg/dL Normal 5.1-21.0 [facility] Comment on above: Performed By: #### I MMUN G #### [facility] [address] [place] [address] Dr. Li Nagel UR TOT VOL 1000 ml/24 HR Normal [facility] Comment on above: Performed By: #### I MMUN G #### [facility] [address] [place] [address] Dr. Li Nagel Performed By: #### A LPHPHN #### [facility] [address] [place] [address] Dr. Li Nagel CREA 24 HR URINEon CREA, 24 HR UR 1891.80 mg/24 hr Critically high 800.00 -1,800 .00 [facility] Comment on above: Performed By: #### A LPHPHN #### [facility] [address] [place] [address] Dr. Li Nagel URINE CREAT 189.18 mg/dL Normal 20.00-300.00 [facility] Comment on above: Performed By: #### A LPHPHN #### [facility] [address] [place] [address] Dr. Li Nagel PTH INTACTon 07-08-2022 PTH, Intact 41 pg/mL Normal 15-65 [facility] Comment on above: Performed By: #### H EPACUT #### [facility] [address] [place] [address] Dr. Li Nagel SODIUM 24 HR URINEon 023 NA, 24 HR UR 149 mmol/24 hr Normal 40-220 [facility] Comment on above: Performed By: #### A LPHPHN #### [facility] [address] [place] [address] Dr. Li Nagel Sodium (U) [Moles/Vol] 149 mmol/L Critically high 30-90 [facility] Comment on above: Performed By: #### A LPHPHN #### [facility] [address] [place] [address] Dr. Li Nagel BUNon 07-06-2022 Urea nitrogen [Mass/Vol] 11.0 mg/dL Normal 7.0-18.0 [facility] Comment on above: Performed By: #### B UN, URIC, CA, K, NA, CL, CO2, CREA #### [facility] [address] [place] [address] Dr. Li Nagel CALCIUMon 07-06-2022 Calcium [Mass/Vol] 9.0 mg/dL Normal 8.5-10.1 [facility] Comment on above: Performed By: #### B UN, URIC, CA, K, NA, CL, CO2, CREA #### [facility] [address] [place] [address] Dr. Li Nagel CHLORIDEon 07-06-2022 Chloride [Moles/Vol] 107 mmol/L Normal 98-107 [facility] Comment on above: Performed By: #### I MMUN G #### [facility] [address] [place] [address] Dr. Li Nagel CO2on 07-06-2022 CO2 [Moles/Vol] 29.2 mmol/L Normal 21.0-32.0 [facility] Comment on above: Performed By: #### I MMUN G #### [facility] [address] [place] [address] Dr. Li Nagel CREATININEon 07-06-2022 Creatinine [Mass/Vol] 0.97 mg/dL Normal 0.55-1.02 [facility] Comment on above: Performed By: #### B UN, URIC, CA, K, NA, CL, CO2, CREA #### [facility] [address] [place] [address] Dr. Li Nagel EGFR-AF MAURITANIAN >60 Normal >=60 [facility] Comment on above: Performed By: #### B UN, URIC, CA, K, NA, CL, CO2, CREA #### [facility] [address] [place] [address] Dr. Li Nagel EGFR-NON AF MAURITANIAN >60 Normal >=60 [facility] Comment on above: Performed By: #### B UN, URIC, CA, K, NA, CL, CO2, CREA #### [facility] [address] [place] [address] Dr. Li Nagel NAon 07-06-2022 Sodium [Moles/Vol] 143 mmol/L Normal 136-145 [facility] Comment on above: Performed By: #### I MMUN G #### [facility] [address] [place] [address] Dr. Li Nagel POTASSIUMon 07-06-2022 Potassium [Moles/Vol] 3.6 mmol/L Normal 3.5-5.1 [facility] Comment on above: Performed By: #### I MMUN G #### [facility] [address] [place] [address] Dr. Li Nagel URIC ACID SERUMon 07-06-2022 Urate [Mass/Vol] 4.7 mg/dL Normal 2.6-6.0 [facility] Comment on above: Performed By: #### B UN, URIC, CA, K, NA, CL, CO2, CREA #### [facility] [address] [place] [address] Dr. Li Nagel SURGICAL PATHOLOGYOrdered By : Karan Nieto on 07-04-2022 Case Report Surgical Pathology Report Case: [id number] Authorizing Provider: Carol Winn MD Collected: 06/30/2022 11:43 AM Ordering Location: Ambulatory Surgery Received: 06/30/2022 10:42 PM Pathologist: Karan Nieto MD Specimens: A) - DUODENUM BIOPSY, r/o celiac B) - STOMACH BIOPSY, r/o H pylori [facility] Work Phone: Diagnosis Comment c9qxtNNwWPIgiMLgPFOw N UhwxzRqFALmbHTuW4Insp rhPVytCN8aWU2ekCpzgLM gfMSxSJLzGlYyd2ydm056 tGMlf7xlZXBPospraXx0k QvxV87hu5N2UkkxE63epB TdARQ6WCMrOEVxsZJzMPH wZNB5AKJxfIZcU7auNYLc BP1lbgjzOPkcTTpcEFNco GN5YEFgzGOkZ2YyKLUvCW wmLTRkaun3QrKqZc7npTJ yeTcyMFxwYXJkXHBsYWlu YDFgZrPjJA4lPB6qqkXuk 2VkIGludHJhZXBpdGhlbG otsLOngX5svO2aiOSunna ocK5mgAjmWRBkw7MgV2Gs l2GdkggjzM50lrJtGf9ak c4zsBk2qHKcULGwIItcQw Fdw2CxjgYkevPaj7RlI0u dmDpkkwV7iCIsHQMqoNht YyBkaXNlYXNlIGFuZCBvd XgtoaEkg70okDCbm36eKC Z6M8fiXUWzwMXosJyrODT ov1Wyb2JjXCsuWgIouEpc pcJkzP0ooRQcxX6yXTrds Hetm5QzY4FbjdHouNkokl qvjG7yNTF4rC2vYIurLI6 kIHNvbWUgbWVkaWNhdGlv rzBhXCLrlO1oS4TrETWxy jMxaAZ5uY7bDUiaqCjtQR Kjvw8yvtsifEChu9Iqn5q vV3kmHSG8gIKaVUXypIAb RjSjI55ot8vmIXGwZVXmS wPcxIbcwZInwWi2XGnhCR wdQGXtAD4rjBAzjX== [facility] Work Phone: FINAL DIAGNOSIS c2ubqWTkCZGjnHHnRGCt N WzhshKuPJCucBTgU2Stgl xwYJfqTV6sPQ9moOphiGH ulDBiAFWuNnKma3frq492 bVMbu6yoQBZLiowshQa8h EuwG80co4V5JzniN02opX AfDRU0FJYaMHEerQJqYRT tWVN1JILyxKYeB9mnKPWq KF5ydhdyXZbuVPhyMUNvl EF3HUJjpZVxR7TjLBAyTG dfLUGizgm2PmEuMb9kmPV yeTcyMFxwYXJkXHBsYWlu LNYhFaJbQE4wEQZeBFGfv A3gQQMxg7JmtZmqpFQvVX 5tB76ciMtidW91IIP1oF5 ekHHtvXZot8Kzm5q4kNIk j8JuXRponfbwoD69jnOry jTkwWJiL9H7odYdRV5lDJ qpZ7HeCWYbLNWppzUrJNC waXRoZWxpYWwgbHltcGhv F5l7QYR9QNCxYIOgq93eP P97AeiuOZSxtXSlEFMiTD W0c46hP1nfROFji0CmoLo mvDHbDM2iJ5YinUMeYlKa eIrnjFvyGM52X83gVOQ0m RMqNROtyp1utWLdEUQ1tP UyEZizrUlrf1WlT4DrepB afYmllayaYKHsb2SfLXHl ZYLgKPP1igh8kRZjGXMgx n0= [facility] Work Phone: Gross Description i8wtoAJjYPVwiUQWWEHl M PUeKA7hqPemqCw5gNauCS NpzzV4mNEaUFwdp4shLCB 3w1azozTNPowhJDElMJiz CPVvhgznQfR3DPfvEROae andEXj5PXuoQTMghKO2SH AtpHZgX0YwNUAzMH5rvif 5XRL6OLcqXAJkWjT4XUDb BwNoMwcjISt2UKFzjfT0E en1VNGxWJMunMAsw6O5DJ uqaivuXTXahFAeC215LDq ov9LsxGHmYRlwoZLpZVDH VivrIfijfTypv5BqdEJlK GlkIDUxMDAwIFxcbmggXF f7CQWjOKgncSXfDO7jpLn cUvjvcMrji7BocYNpSWom BBFsKGMtNLsoCJRqJG1PK eXtVZB8Hez4Ulw6WiM5IO r3TUPIRwWbIdDnRbvbVIZ 4XBIcBSg2SXq8UMyDWfW7 JQMjOOggFMKtKSA6HVw3L FxcdCAyIFxcZiBBcmlhbC UpBGQmWMkplmE7COVpOQa pFLQtIIFSP2NJEzJGBGTM A4WJWPxeVZMcOTlpOUZnO 44db0XVb5WhIB0KNNp6dw RfhdtyuO2kXBMynnUqEPa gsKZcO2kvGwLgVMCEQEOw wBAzTQXkhrBja9BuKXnyq iBhcmUgbXVsdGlwbGUgcG ugN4RoGK6tSDSwoialv11 jyXO5mHSwkLQdECvmydUq TEMpspvlzF6rUV82NXgbR E5fYJuiWY4jRWAuAnGOb1 OzxIn4GMJ1Jn4uzURaNFX rsrMlscSlC7Hao6W4fJIo GIwoCLBsA73sl4ISo8ShJ KZiv1pfjEaba2YwbYScWG fiPIMovMFhGLgppS6uUyP mi6lxkCi8BYphniT0KRKy vy8llXqknF8eRMi5AMstL YXgF4HdW4QhEGoaLJO2ZU AwMiBcXGRiICBPVlIgIiA yGpQ7TAQ1UNPqLIq7ZIzz L1MYUKQbCIP4KRv5NPd9N eX5FCi3TYPWDv6bCUjfCo u2YBXpNST0TTx9FWDnBNM gMiBcXGYgQXJpYWwgXFxm zNTsYI3jyPxihIQgmrmnq yE7KIIkNQxcUSBcIETHX5 6QB4jkUyaRKJQPOPZqeyT NClxlcGljTmVzdERvYzEg DQpcbHRycGFyXGxpbjBcc mluMCANClxsdHJjaFxmcz IrZUCxS6MmejHgFCfaWNG zvk2cxIttMPCrFJX2s53j sBmwB1WwSQ7iHWVzvpxhc 10nwLW4xUXanSLsDOrjbw SyZNLqqdbbmQ5rIO3hNCo dWT8fTNsiDN5pLZOsFeCZ y6QgpYh9GWY9Hj4mvJUtX RHdyuBohzRwY1Ueq4A9gY UuIFxwYXIgDQpccGFyIA0 CC5Ono5XcLPiglGijGVXx i97roOBeZa8ahPUkLYX2N ENsZXZlbGFuZCBDbGluaW CpIEx5QXNwZQQstTjqRJJ 3QV6gPZTiSNMmuCKrUUuh P4pkQEYpZVPntGCtGM3QR HBhciANCkpUIDAzLzEwLz WtKeAmTGr0UuCNPEnyNIP sLRevYIVhH94om6KNa9Rc ORKce6mmoWivc8UnpNSfY GovPRZcfVQpNRhxmR2mPl Ghv7wgxFr5UMzzskX3IVE mey6yaQojeW4cDVyvd2vr MAB0ZUOeaEFywAYjWDsli XsltI3uAwHmWew5WRzcPN PgZ5YbY6PzfeJ2FKQkXJw uXGZzMTYgDQp9 [facility] Work Phone: Performing Lab r8dqwSIzRVQuoXWzZsOn M OPfTDCin9wiVTXicBDjBc EwMzNcZnRuYmpcdWMxXGR gYdHlb7sfv975tILlf6my FOJrQdN0xZVeRRGtqBSyH 826PKGdLQieo0vzh6KqON VlhUOdx3B8XHWFfekrzSu 0wWaaD93eb5H5FvdxE8fk FDOxYZXoH0FoLQ7xRRDlN es8DGZ6CWK7WWKsSRBaA4 AuBM1sBQAfhGFwOCa2k7y jgWebDWVkVZF9r4moRKar dpDzTL4bht9fdTo4a7yac zEgRGVmYXVsdCBQYXJhZ3 HhlDkzHu1iyVf3oVqbWpz qLYM1Mxi6JA2rds23lsm1 xWllCNNfvmsqIxB7YLgfJ KWmhfpySUg3RDuhVHPmpL G0NOLrsTYtU1AsUAuzOO0 jxhh2XNS5UQfyNOBlOlM3 NDBcaGVhZGVyeTcyMFxmb 222TTQ7CvXjBK0oL0Tzh2 R7gS9ucKMjCFRgaUEaPuK fIRXify5xgLIgLUmdr7Mi WTD6brE6dAQwoOAmJBYwB N26Pwmtt0DnNyipw2KnL5 9jfMZ0EDmbc6ebQT5sWzI 1gjOtAVscy3ejiO6aNaU8 AGsvAR0kFT8uBOXxsF6ww mxjXHBnYnJkcmhlYWRccG mqlhHqSq5mcYseIRN1HFs hN2ownB4uCdP1NHyoY8dg hF4jYJf9ZEmtaSJ2AYZzs D9oVZ7vdgyun6cdSWmjIX pyEJBkdrO9rsRsGOSpqXI cG5DcfT6hNRBmSX3qavio w9wuOHU2GLxcAPXoTBU8R qSvQQXty9Dvazq8JzWwa4 KfnPXzPGjtF92vo112YAE sbfYxT4xtxVNukyznkBWi gndqNCsopnB6LIMqYEIiH WluXGYxXGZzMjJcbGFuZz EwMzNcaGljaFxmMVxkYmN kXSAwEFruT1kcTrVvRfSo JnSTvFGdhg8rfHanTXcbq HRjiPLouNK7bH4iYLUkkf Pmig7aZTZxaIUOwFA7YVb heoGaK5gxwflbEJZ9BFHa TON7V7nyPBHUreSyMWQmD HBdjEEmNLYJQZG6YUH4RU QjHMJEMNGbVMW7YTJ9PGQ wOTRccGFyXHBhclxwYXJk XHBsYWluXGYwXGZzMjRcc EbpaT2hFyCaYlFmErapIR 1jEYSyF9jovNYmTVQbTSU eO8niAhCayQ3uhGlxMDfn ZjJcZnMyMlxsdHJjaCBMY CBihvX4u4Z8CHkelFBsvq xmMVxmczIyXGxhbmcxMDM sZFixW1ulFtPoDXCawQfe ACqmg9LiELDyVCJjCyOmP RmkPLQ1h6G2WYwfeOZkxe VWJhFXJB2cePDaxyngBF8 ELlxwYXJ9 [facility] Work Phone: [facility] Work Phone: EGD Study observation Narrat napoleon 06-30-[address] [facility] Gastroenterology Gastrointestinal Endoscopy Patient Name: Orion Harper Procedure Date: 06/30/2022 11:41 AM Date of : 1990 Admit Type: Outpatient Age: 31 Room: [facility] 2 Gender: Female Note Status: [...] by the physician, the nurse, the senior game developer and the compressor service technician in the procedure room at 11:35 [...] gastric ulcers (more content not included)... PROVATION [facility] Radiology Study observation (narrative) [facility] XR KUB 1 VIEWon 06-30-2022 XR [...] by: JACKSON ADKINS Date: 2022-06-30 07:02 Normal [facility] US ABD RT UPPER QUADRANTon 0 06-15-2022 [facility] [address] ABD/PEL WO IVCONon 2022 Radiology Result ACTIONABLE Abnormal [facility] No Panel Informationon 05-27 [facility] [id number] PHENOTYP INGon 05-11-2022 [id number]-[id number], Serum 130 mg/dL Normal 100-188 [facility] Comment on above: Result Comment: Perf ormed at: CB Performed By: #### A LPHN #### [facility] [address] [place] [address] Dr. Li Nagel Phenotype (PI) MM Normal [facility] [...] Performed at: BN Performed By: #### A [facility] #### [facility] [address] [place] [address] Dr. Li Nagel HEREDITARY HEMOCHROMATOSIS, DNA ANALYSISon 05-11-2022 Hereditary Hemochromatosis Comment Normal [facility] Comment on above: Result Comment: Resu lt: c.845G>A (p.Cmq573Yxn) - Not Detected c.187C>G (p.Cae76Nss) - Not Detected c.193A>T (p.Bkf90Vwj) - Not Detected Not associated with increased [...] for patients who are homozygous for c.845G>A (p.Nni597Kjx) and have yet to experience clinical symptoms. . Comments: The most common HFE variants associated with hereditary hemochromatosis are c.845G>A (p.Hrs039Ifz), c.187C>G (p.Vpd94Qbt), c.193A>T (p.Qsy29Ztv). While patients homozygous for c.845G>A (p.Cno650Rna) are the most likely to present clinical symptoms, less than 10% develop clinically significant iron overload with tissue and organ damage. . Genetic counseling is recommended to discuss the potential clinical implications of positive results, as well as recommendations for testing family members. Genetic Coordinators are available for health care providers to discuss results at [phone]). . Test Details: Three variants analyzed: c.845G>A (p.Bsa186Xpt), commonly referred to as C282Y c.187C>G (p.Mzm88Clh), commonly referred to as H63D c.193A>T (p.Nhe09Lux), commonly referred to as S65C . Methods/Limitations: [...] developed and its performance characteristics determined by [place]. It has not been cleared or approved by the Food and Drug Administration. . References: Brodie BR, Yoav PC, Deborah KV, Raymond LW, Ramsey ; [employer]. Diagnosis and management of hemochromatosis: 2011 practice guideline by the [employer]. Hepatology. 2011 Oct;54(1):328-43. doi: 10.1002/hep.86147. PMID: 78189064; PMCID: PUP3536158. Cora G, Olegario P, Fabio MCDONALD, Tabatha H, Love O, Zev S, Vazquez I, Kofi M, Sunitha S. [facility] best practice guidelines for the molecular genetic diagnosis of hereditary hemochromatosis (HH). Eur J Hum Margaret. 2016 Apr;24(4):479-54. doi: 10.1038/ejhg.2015.128. Epub 2014Oct 29. PMID: 91226426; PMCID: [id number]. . Anitra Hager, PhD, FACMG Dm Reyna, PhD Alexandro Rodriguez, PhD, FACMG Jhony Hammond, PhD, FACMG Oumar Avila, PhD, FAC Rob Brand, PhD, FAC Pascale Gracia, PhD, FACMG Lala Marvin, PhD, FAC Performed By: #### H EPACUT #### [facility] [address] [place] [address] Dr. Li Nagel DENY by IFAon 05-06-2022 Antinuclear Antibodies, IFA Negative Normal [facility] Comment on above: Result Comment: Nega tive <1:80 Borderline 1:80 Positive >1:80 ICAP nomenclature: AC-0 For more information about Hep-2 cell patterns use ANApatterns.org, the official website for the International Consensus on Antinuclear Antibody (DENY) Patterns (ICAP). Performed By: #### A LPHPHN #### [facility] [address] [place] [address] Dr. Li Nagel CERULOPLASMINon 05-05-2022 Ceruloplasmin 27.9 mg/dL Normal 19.0-39.0 [facility] Comment on above: Performed By: #### H EPACUT #### [facility] [address] [place] [address] Dr. Li Nagel HEPATITIS A AB IGMon 023 Hep A Ab, IgM Negative Normal Negative [facility] Comment on above: Performed By: #### I MMUN G #### [facility] [address] [place] [address] Dr. Li Nagel IMMUNOGLOBULIN G INDEX SERUM OR CSFon 05-05-2022 Albumin [Mass/Vol] 4.8 g/dL Normal 3.8-4.8 [facility] Comment on above: Performed By: #### I MMUN G #### [facility] [address] [address] [address] Li Nagel Albumin, CSF NSPINL Normal [facility] Comment on above: Result Comment: Test not performed. No spinal fluid received. contacted Radha at your facility on 05-05-2022 Performed By: #### I MMUN G #### [facility] [address] [place] [address] Dr. Li Nagel CSF IgG Index UPTCAL Normal [facility] Comment on above: Result Comment: Unab le to calculate result since non-numeric result obtained for component test. Performed By: #### I MMUN G #### [facility] [address] [address] [address] Li Nagel IgG, Quant, CSF NSPINL Normal [facility] Comment on above: Result Comment: Test not performed. No spinal fluid received. contacted Rahda at your facility on 05-05-2022 Performed By: #### I MMUN G #### [facility] [address] [address] [address] Li Nagel IgG/Alb Ratio, CSF UPTCAL Normal [facility] Comment on above: Result Comment: Unab le to calculate result since non-numeric result obtained for component test. Performed By: #### I MMUN G #### [facility] [address] [place] [address] Dr. Li Nagel Immunoglobulin G, Qn, Serum 971 mg/dL Normal 586-1602 [facility] Comment on above: Performed By: #### I MMUN G #### [facility] [address] [place] [address] Dr. Li Nagel LIVER-KIDNEY MICROSOMAL (LKM ) ABon 05-05-2022 Liver-Kidney Microsomal Ab 1.3 Units Normal 0.0-20.0 [facility] Comment on above: Result Comment: Nega tive 0.0 - 20.0 Equivocal 20.1 - 24.9 Positive >24.9 . LKM type 1 antibodies are detected in patients with autoimmune hepatitis type 2 and in up to 8% of patients with chronic HCV infection. Performed By: #### H EPACUT #### [facility] [address] [address] [address] Li Nagel MITICHONDRIAL (M2) ANTIBODYo n 05-05-2022 Mitochondrial (M2) Antibody <20.0 Normal 0.0-20.0 [facility] Comment on above: Result Comment: Nega tive 0.0 - 20.0 Equivocal 20.1 - 24.9 Positive >24.9 . Mitochondrial (M2) Antibodies are found in 90-96% of patients with primary biliary cirrhosis. Performed By: #### A LPHPHN #### [facility] [address] [place] [address] Dr. Li Nagel SMOOTH MUSCLE ANTIBODYon Actin (Smooth Muscle) Antibody 9 Units Normal 0-19 [facility] Comment on above: Result Comment: Nega tive 0 - 19 Weak positive 20 - 30 Moderate to strong positive >30 . Actin Antibodies are found in 52-85% of patients with autoimmune hepatitis or chronic active hepatitis and in 22% of patients with primary biliary cirrhosis. Performed By: #### A LPHPHN #### [facility] [address] [place] [address] Dr. Li Nagel FERRITINon 05-03-2022 Ferritin [Mass/Vol] 319.0 ng/mL Critically high 6.2-137.0 [facility] Comment on above: Performed By: #### A LPHPHN #### [facility] [address] [place] [address] Dr. Li Nagel PAP ACOG PANEL 2: 30 to 65on 04-28-2022 . . Normal [facility] Comment on above: Result Comment: Perf ormed at: BA Performed By: #### I MMUN G #### [facility] [address] [place] [address] Dr. Li Nagel Age Gdln ACOG Testing 30-65 Normal [facility] Comment on above: Performed By: #### I MMUN G #### [facility] [address] [place] [address] Dr. Li Nagel DIAGNOSIS: Comment Normal [facility] Comment on above: Result Comment: NEGA TIVE FOR INTRAEPITHELIAL LESION OR MALIGNANCY. Performed at: BA Performed By: #### I MMUN G #### [facility] [address] [address] [address] Li Nagel HPV Aptima Negative Normal Negative [facility] Comment on above: Result Comment: This nucleic acid amplification test detects fourteen high-risk HPV types (16,18,31,33,35,39,45,51,52,56,58,59,66,68) without differentiation. Performed at: =G Performed By: #### I MMUN G #### [facility] [address] [address] [address] Li Nagel HPV Genotype Reflex Comment Normal [facility] Comment on above: Result Comment: Crit eria not met, HPV Genotype not performed. Performed at: BA Performed By: #### I MMUN G #### [facility] [address] [place] [address] Dr. Li Nagel Methodology: Comment Normal [facility] Comment on above: Result Comment: This liquid based ThinPrep(R) pap test was screened with the use of an image guided system. Performed at: WB Performed By: #### I MMUN G #### [facility] [address] [address] [address] Li Nagel Note: Comment Normal [facility] Comment on above: Result Comment: [...] Performed By: #### I MMUN G #### [facility] [address] [address] [address] Li Nagel Performed by: Comment Normal [facility] Comment on above: Result Comment: Gretta Holly, Easement Man (ASCP) Performed at: BA Performed By: #### I MMUN G #### [facility] [address] [address] [address] Li Nagel Specimen adequacy: Comment Normal [facility] Comment on above: Result Comment: Sati sfactory for evaluation. No endocervical component is identified. Performed at: BA Performed By: #### I MMUN G #### [facility] [address] [address] [address] Li Nagel HEPATITIS PANEL, [facility] HBsAg Screen Negative Normal Negative [facility] Comment on above: Performed By: #### H EPACUT #### [facility] [address] [address] [address] Li Nagel HCV AB <0.1 Normal 0.0-0.9 [facility] Comment on above: Performed By: #### H EPACUT #### [facility] [address] [address] [address] Li Nagel Hep A Ab, IgM Negative Normal Negative [facility] Comment on above: Performed By: #### H EPACUT #### [facility] [address] [address] [address] Li Nagel Hep B Core Ab, IgM Negative Normal Negative [facility] Comment on above: Performed By: #### H EPACUT #### [facility] [address] [address] [address] Li Nagel Interpretation: Comment Normal [facility] Comment on above: Result Comment: Nega tive Not infected with HCV, unless recent infection is suspected or other evidence exists to indicate HCV infection. Performed By: #### H EPACUT #### [facility] [address] [address] [address] Li Nagel US PELVIS AND TRANSVAGon [...] LAURIE CRUZ Date: 2021-12-22 09:50 Normal [facility] US ABD RT UPPER QUADRANTon 0 12-10-2021 [facility] US PELVIS AND TRANSVAGon US PELVIS [...] LAURIE CRUZ Date: 2021-10-28 13:01 Normal [facility] VAGINITIS/VAGINOSIS DNA PROB Kwasi 10-21-2021 Sharif species Negative Normal Negative [facility] Comment on above: Performed By: #### I MMUN G #### [facility] [address] [address] [address] Li Nagel Gardnerella vaginalis Negative Normal Negative [facility] Comment on above: Performed By: #### I MMUN G #### [facility] [address] [address] [address] Li Nagel Trichomonas vaginalis Negative Normal Negative [facility] Comment on above: Performed By: #### I MMUN G #### [facility] [address] [place] [address] Dr. Li Nagel CBC AUTO DIFFon 10-20-2021 BASO # 0.0 103/ul Normal 0.0-0.1 [facility] Comment on above: Performed By: #### A LPHPHN #### [facility] [address] [place] [address] Dr. Li Nagel Basophils/100 WBC (Bld) 0.4 % Normal 0.2-2.0 [facility] Comment on above: Performed By: #### A LPHPHN #### [facility] [address] [place] [address] Dr. Li Nagel EO # 0.2 103/ul Normal 0.0-0.7 [facility] Comment on above: Performed By: #### A LPHPHN #### [facility] [address] [place] [address] Dr. Li Nagel Eosinophils/100 WBC (Bld) 2.6 % Normal 0.9-7.0 [facility] Comment on above: Performed By: #### A LPHPHN #### [facility] [address] [place] [address] Dr. Li Nagel Erythrocyte distribution width (RBC) [Ratio] 12.6 % Normal 11.0-15.0 [facility] Comment on above: Performed By: #### A LPHPHN #### [facility] [address] [place] [address] Dr. Li Nagel Hematocrit (Bld) [Volume fraction] 40.0 % Normal 36.0-48.0 [facility] Comment on above: Performed By: #### A LPHPHN #### [facility] [address] [place] [address] Dr. Li Nagel Hemoglobin (Bld) [Mass/Vol] 13.3 g/dL Normal 12.0-16.0 [facility] Comment on above: Performed By: #### A LPHPHN #### [facility] [address] [place] [address] Dr. Li Nagel IG # 0.06 10e3/ul Critically high 0.00-0.[address] [facility] Comment on above: Performed By: #### A LPHPHN #### [facility] [address] [place] [address] Dr. Li Nagel IG % 0.9 % Critically high 0.0-0.5 [facility] Comment on above: Performed By: #### A LPHPHN #### [facility] [address] [place] [address] Dr. Li Nagel LYMPH # 2.2 103/ul Normal 1.2-3.8 [facility] Comment on above: Performed By: #### A LPHPHN #### [facility] [address] [place] [address] Dr. Li Nagel Lymphocytes/100 WBC (Bld) 31.0 % Normal 20.5-60.0 [facility] Comment on above: Performed By: #### A LPHPHN #### [facility] [address] [place] [address] Dr. Li Nagel MANUAL DIFF REQ NO Normal [facility] Comment on above: Performed By: #### A LPHPHN #### [facility] [address] [place] [address] Dr. Li Nagel MCH (RBC) [Entitic mass] 31.4 pg Normal 26.7-34.0 [facility] Comment on above: Performed By: #### A LPHPHN #### [facility] [address] [place] [address] Dr. Li Nagel MCHC (RBC) [Mass/Vol] 33.3 g/dL Normal 29.9-35.2 [facility] Comment on above: Performed By: #### A LPHPHN #### [facility] [address] [place] [address] Dr. Li Nagel MCV (RBC) [Entitic vol] 94.3 fL Normal 81.0-99.0 [facility] Comment on above: Performed By: #### A LPHPHN #### [facility] [address] [place] [address] Dr. Li Nagel MONO # 0.5 103/ul Normal 0.3-0.8 [facility] Comment on above: Performed By: #### A LPHPHN #### [facility] [address] [place] [address] Dr. Li Nagel Monocytes/100 WBC (Bld) 6.9 % Normal 1.7-12.0 [facility] Comment on above: Performed By: #### A LPHPHN #### [facility] [address] [place] [address] Dr. Li Nagel NEUT # 4.1 103/ul Normal 1.4-6.5 [facility] Comment on above: Performed By: #### A LPHPHN #### [facility] [address] [place] [address] Dr. Li Nagel Neutrophils/100 WBC (Bld) 58.2 % Normal 43.0-75.0 [facility] Comment on above: Performed By: #### A LPHPHN #### [facility] [address] [place] [address] Dr. Li Nagel Platelet mean volume (Bld) [Entitic vol] 11.0 fL Normal 9.5-13.5 [facility] Comment on above: Performed By: #### A LPHPHN #### [facility] [address] [place] [address] Dr. Li Nagel PLT 211 103/ul Normal 150-450 [facility] Comment on above: Performed By: #### A LPHPHN #### [facility] [address] [place] [address] Dr. Li Nagel RBC 4.24 106/ul Normal 4.20-5.40 [facility] Comment on above: Performed By: #### A LPHPHN #### [facility] [address] [place] [address] Dr. Li Nagel WBC 7.0 103/ul Normal 4.0-11.0 [facility] Comment on above: Performed By: #### A LPHPHN #### [facility] [address] [place] [address] ABD/PELV W CONon 06-29-[address] ABD/PELV W CON EXAMINATION: CT [...] DOLORES MOON Date: 2021-10-20 14:53 Normal [facility] OCC BLD IMMUNO SCREENon 09-23 OCCULT BLOOD Negative Normal NEGATIVE [facility] Comment on above: Performed By: #### O BSCRN #### [facility] [address] [place] [address] Dr. Li Nagel PROF 14(COMP METB)on 022 Albumin [Mass/Vol] 3.7 g/dL Normal 3.4-5.0 [facility] Comment on above: Performed By: #### A LPHPHN #### [facility] [address] [place] [address] Dr. Li Nagel Albumin/Globulin [Mass ratio] 1.2 {ratio} Normal [facility] Comment on above: Performed By: #### A LPHPHN #### [facility] [address] [place] [address] Dr. Li Nagel ALP [Catalytic activity/Vol] 86 U/L Normal 46-116 [facility] Comment on above: Performed By: #### A LPHPHN #### [facility] [address] [place] [address] Dr. Li Nagel ALT [Catalytic activity/Vol] 109 U/L Critically high 14-59 [facility] Comment on above: Performed By: #### A LPHPHN #### [facility] [address] [place] [address] Dr. Li Nagel Anion gap [Moles/Vol] 7.8 mmol/L Normal [facility] Comment on above: Performed By: #### A LPHPHN #### [facility] [address] [place] [address] Dr. Li Nagel AST [Catalytic activity/Vol] 57 U/L Critically high 15-37 [facility] Comment on above: Performed By: #### A LPHPHN #### [facility] [address] [place] [address] Dr. Li Nagel Bilirubin [Mass/Vol] 0.4 mg/dL Normal 0.2-1.0 [facility] Comment on above: Performed By: #### A LPHPHN #### [facility] [address] [place] [address] Dr. Li Nagel Calcium [Mass/Vol] 8.9 mg/dL Normal 8.5-10.1 [facility] Comment on above: Performed By: #### A LPHPHN #### [facility] [address] [place] [address] Dr. Li Nagel Chloride [Moles/Vol] 104 mmol/L Normal 98-107 [facility] Comment on above: Performed By: #### A LPHPHN #### [facility] [address] [place] [address] Dr. Li Nagel CO2 [Moles/Vol] 27.7 mmol/L Normal 21.0-32.0 [facility] Comment on above: Performed By: #### A LPHPHN #### [facility] [address] [place] [address] Dr. Li Nagel Creatinine [Mass/Vol] 0.78 mg/dL Normal 0.55-1.02 [facility] Comment on above: Performed By: #### A LPHPHN #### [facility] [address] [place] [address] Dr. Li Nagel EGFR-AF MAURITANIAN >60 Normal >=60 [facility] Comment on above: Performed By: #### A LPHPHN #### [facility] [address] [address] [address] Li Nagel EGFR-NON AF MAURITANIAN >60 Normal >=60 [facility] Comment on above: Performed By: #### A LPHPHN #### [facility] [address] [place] [address] Dr. Li Nagel Globulin (S) [Mass/Vol] 3.2 g/dL Normal [facility] Comment on above: Performed By: #### A LPHPHN #### [facility] [address] [place] [address] Dr. Li Nagel Glucose [Mass/Vol] 104 mg/dL Normal 74-106 [facility] Comment on above: Performed By: #### A LPHPHN #### [facility] [address] [place] [address] Dr. Li Nagel Potassium [Moles/Vol] 3.5 mmol/L Normal 3.5-5.1 [facility] Comment on above: Performed By: #### A LPHPHN #### [facility] [address] [place] [address] Dr. Li Nagel Protein [Mass/Vol] 6.9 g/dL Normal 6.4-8.2 [facility] Comment on above: Performed By: #### A LPHPHN #### [facility] [address] [place] [address] Dr. Li Nagel Sodium [Moles/Vol] 136 mmol/L Normal 136-145 [facility] Comment on above: Performed By: #### A LPHPHN #### [facility] [address] [place] [address] Dr. Li Nagel Urea nitrogen [Mass/Vol] 10.0 mg/dL Normal 7.0-18.0 [facility] Comment on above: Performed By: #### A LPHPHN #### [facility] [address] [address] [address] Li Nagel Urea nitrogen/Creatinine [Mass ratio] 12.8 mg/mg Normal [facility] Comment on above: Performed By: #### A LPHPHN #### [facility] [address] [id number] [address] Li Nagel XR LSPINE MIN 4 [...] by: LAURIE CRUZ Date: 2021-09-06 15:05 Normal [facility] NM HEPATOBILIARY SCAN W EFon [...] by: JACKSON ADKINS Date: 2021-08-27 16:05 Normal [facility] Comprehensive Metabolic Pane yair 08-20-2021 Albumin [Mass/Vol] 5.0 g/dL Normal 3.6-5.1 [employer] [place] [employer] Comment on above: Performed By: #### C MP #### [facility] [address], [place] [id number] Albumin/Globulin [Mass ratio] 2.1 {ratio} Normal 1.0-2.5 [facility] Special[facility] Comment on above: Performed By: #### C MP #### [facility] [address], [place] [id number] ALP [Catalytic activity/Vol] 110 U/L Normal 35-119 [facility] Specialist Comment on above: Performed By: #### C MP #### [facility] [address] [facility] [place] [id number] ALT [Catalytic activity/Vol] 71 U/L High 6-33 [facility] Specialist Comment on above: Result Comment: 03/24 Female reference range changed. Performed By: #### C MP #### [facility] [address], [place] [id number] Anion gap [Moles/Vol] 17 mmol/L Normal 12-20 [facility] Comment on above: Result Comment: Effe ctive 04/29/2019 reference range changed. Performed By: #### C MP #### [facility] [address], [place] [id number] AST [Catalytic activity/Vol] 69 U/L High 9-34 [facility] Specialist Comment on above: Performed By: #### C MP #### [facility] [address], [place] [id number] BUN/CREA 11 Ratio Normal 6-22 [facility] Specialist Comment on above: Performed By: #### C MP #### [facility] [address], [place] [id number] Calcium [Mass/Vol] 9.8 mg/dL Normal 8.6-10.2 [employer] [facility] [place] [employer] Comment on above: Performed By: #### C MP #### [facility] [address], [place] [id number] Chloride [Moles/Vol] 99 mmol/L Normal 98-107 [facility] Specialist Comment on above: Performed By: #### C MP #### [facility] [address], [place] [id number] CO2 [Moles/Vol] 25 mmol/L Normal 20-31 [facility] Specialist Comment on above: Performed By: #### C MP #### [facility] [address], [place] [id number] Creatinine [Mass/Vol] 0.9 mg/dL Normal 0.6-1.4 [facility] Comment on above: Performed By: #### C MP #### [facility] Laboratory [address], [place] [id number] eGFRAA 94 mL/min/1.73m2 Normal >60 [facility] Specialist Comment on above: Performed By: #### C MP #### [facility] [address], [place] [id number] eGFRNAA 78 mL/min/1.73m2 Normal >60 [facility] Specialist Comment on above: Performed By: #### C MP #### [facility] [address], [place] [id number] Globulin (S) [Mass/Vol] 2.4 g/dL Normal 1.9-3.7 [facility] Specialist Comment on above: Performed By: #### C MP #### [facility] [address], [place] [id number] Glucose [Mass/Vol] 100 mg/dL High 65-[address] [facility] Specialist Comment on above: Result Comment: For FASTING Glucose --- ADA reference ranges: Normal 65-99 mg/dl Prediabetes 100-125 Diabetes >/= 126 Performed By: #### C MP #### [facility] [address], [place] [id number] Potassium [Moles/Vol] 3.8 mmol/L Normal 3.5-5.5 [facility] Specialist Comment on above: Performed By: #### C MP #### [facility] [address], [place] [id number] Protein [Mass/Vol] 7.4 g/dL Normal 6.1-8.[address] [facility] Specialist Comment on above: Performed By: #### C MP #### [facility] [address], [place] [id number] Sodium [Moles/Vol] 137 mmol/L Normal 135-[address] [facility] Specialist Comment on above: Performed By: #### C MP #### [facility] [address], [place] [id number] TBIL <0.3 Normal [facility] Administrative Job Titles Comment on above: Performed By: #### C MP #### [facility] [address], [place] [id number] Urea nitrogen [Mass/Vol] 10 mg/dL Normal 7-25 [facility] Administrative Job Titles Comment on above: Performed By: #### C MP #### [facility] [address], [place] [id number] US SINGLE QUAD RT UPPERon US SINGLE [...] JACKSON ADKINS Date: 2021-08-16 08:19 Normal [facility] Complete Blood Count with Au to Diffon 08-06-2021 Basophils (Bld) [#/Vol] 0.03 10*3/uL Normal 0.00-0.20 [facility] Administrative Job Titles Comment on above: Performed By: #### C MP, CBCAD, LIPD #### [facility] [address], [place] [id number] Basophils/100 WBC (Bld) 0.4 % Normal [facility] [place] Administrative Job Titles Comment on above: Performed By: #### C MP, CBCAD, LIPD #### [facility] [address], [place] [id number] Eosinophils (Bld) [#/Vol] 0.11 10*3/uL Normal 0.02-0.50 [facility] Specialist Comment on above: Performed By: #### C MP, CBCAD, LIPD #### [facility] [address], [place] [id number] Eosinophils/100 WBC (Bld) 1.4 % Normal [facility] Specialist Comment on above: Performed By: #### C MP, CBCAD, LIPD #### [facility] [address], [place] [id number] Erythrocyte distribution width (RBC) [Ratio] 12.6 % Normal 11.0-15.0 [facility] Specialist Comment on above: Performed By: #### C MP, CBCAD, LIPD #### [facility] [address], [place] [id number] Hematocrit (Bld) [Volume fraction] 44.2 % Normal 35.0-47.0 [facility] Specialist Comment on above: Performed By: #### C MP, CBCAD, LIPD #### [facility] [address], [place] [id number] Hemoglobin (Bld) [Mass/Vol] 14.8 g/dL Normal 11.6-15.5 [facility] Specialist Comment on above: Performed By: #### C MP, CBCAD, LIPD #### [facility] [address], [place] [id number] Lymphocytes (Bld) [#/Vol] 2.2 10*3/uL Normal 0.9-3.9 [facility] Specialist Comment on above: Performed By: #### C MP, CBCAD, LIPD #### [facility] [address], [place] [id number] Lymphocytes/100 WBC (Bld) 28.1 % Normal [facility] Specialist Comment on above: Performed By: #### C MP, CBCAD, LIPD #### [facility] [address], [place] [id number] MCH (RBC) [Entitic mass] 31.2 pg Normal 27.0-33.0 [facility] Specialist Comment on above: Performed By: #### C MP, CBCAD, LIPD #### [facility] [address], [place] [id number] MCHC (RBC) [Mass/Vol] 33.5 g/dL Normal 32.0-36.0 [facility] Comment on above: Performed By: #### C MP, CBCAD, LIPD #### [facility] [address], [place] [id number] MCV (RBC) [Entitic vol] 93 fL Normal 80-100 [facility] Specialist Comment on above: Performed By: #### C MP, CBCAD, LIPD #### [facility] [address], [place] [id number] Monocytes (Bld) [#/Vol] 0.4 10*3/uL Normal 0.2-0.9 [facility] Comment on above: Performed By: #### C MP, CBCAD, LIPD #### [facility] [address], [place] [id number] Monocytes/100 WBC (Bld) 4.8 % Normal [facility] Comment on above: Performed By: #### C MP, CBCAD, LIPD #### [facility] [address], [place] [id number] Neutrophils (Bld) [#/Vol] 5.1 10*3/uL Normal 1.5-7.8 [facility] Specialist Comment on above: Performed By: #### C MP, CBCAD, LIPD #### [facility] [address], [place] [id number] Neutrophils/100 WBC (Bld) 64.3 % Normal [facility] Specialist Comment on above: Performed By: #### C MP, CBCAD, LIPD #### [facility] [address], [place] [id number] Platelet mean volume (Bld) [Entitic vol] 11.00 fL Normal 7.50-12.50 [facility] Comment on above: Performed By: #### C MP, CBCAD, LIPD #### [facility] [address], [place] [id number] Platelets (Bld) [#/Vol] 296 10*3/uL Normal 140-400 [facility] Comment on above: Performed By: #### C MP, CBCAD, LIPD #### [facility] [address], [place] [id number] RBC (Bld) [#/Vol] 4.74 10*6/uL Normal 3.90-5.20 [facility] Comment on above: Performed By: #### C MP, CBCAD, LIPD #### [facility] [address], [place] [id number] RDW-SD 43.4 fL Normal 37.0-50.0 [facility] Comment on above: Performed By: #### C MP, CBCAD, LIPD #### [facility] [address], [place] [id number] WBC (Bld) [#/Vol] 8.0 10*3/uL Normal 3.8-11.0 [facility] Comment on above: Performed By: #### C MP, CBCAD, LIPD #### [facility] [address], [place] [id number] Comprehensive Metabolic Pane yair 08-06-2021 Albumin [Mass/Vol] 5.2 g/dL High 3.6-5.[address] [facility] Specialist Comment on above: Performed By: #### C MP, CBCAD, LIPD #### [facility] [address], [place] [id number] Albumin/Globulin [Mass ratio] 2.1 {ratio} Normal 1.0-2.5 [facility] Comment on above: Performed By: #### C MP, CBCAD, LIPD #### [facility] [address], [place] [id number] ALP [Catalytic activity/Vol] 115 U/L Normal 35-119 [facility] Specialist Comment on above: Performed By: #### C MP, CBCAD, LIPD #### [facility] [address], [place] [id number] ALT [Catalytic activity/Vol] 101 U/L High 6-33 [facility] [place] Administrative Job Titles Comment on above: Result Comment: 03/24 Female reference range changed. Performed By: #### C MP, CBCAD, LIPD #### [facility] [address], [place] [id number] Anion gap [Moles/Vol] 20 mmol/L Normal 12-20 [facility] Specialist Comment on above: Result Comment: Effe ctive 04/29/2019 reference range changed. Performed By: #### C MP, CBCAD, LIPD #### [facility] [address], [place] [id number] AST [Catalytic activity/Vol] 96 U/L High 9-34 [facility] Specialist Comment on above: Performed By: #### C MP, CBCAD, LIPD #### [facility] [address], [place] [id number] BUN/CREA 9 Ratio Normal 6-22 [facility] Specialist Comment on above: Performed By: #### C MP, CBCAD, LIPD #### [facility] [address], [place] [id number] Calcium [Mass/Vol] 9.9 mg/dL Normal 8.6-10.[address] [facility] Specialist Comment on above: Performed By: #### C MP, CBCAD, LIPD #### [facility] [address], [place] [id number] Chloride [Moles/Vol] 106 mmol/L Normal 98-107 [facility] Specialist Comment on above: Performed By: #### C MP, CBCAD, LIPD #### [facility] [address], [place] [id number] CO2 [Moles/Vol] 21 mmol/L Normal 20-31 [facility] Specialist Comment on above: Performed By: #### C MP, CBCAD, LIPD #### [facility] [address], [place] [id number] Creatinine [Mass/Vol] 0.9 mg/dL Normal 0.6-1.4 [facility] Specialist Comment on above: Performed By: #### C MP, CBCAD, LIPD #### [facility] [address], [place] [id number] eGFRAA 90 mL/min/1.73m2 Normal >60 [facility] Administrative Job Titles Comment on above: Performed By: #### C MP, CBCAD, LIPD #### [facility] [address], [place] [id number] eGFRNAA 74 mL/min/1.73m2 Normal >60 [facility] Specialist Comment on above: Performed By: #### C MP, CBCAD, LIPD #### [facility] [address], [place] [id number] Globulin (S) [Mass/Vol] 2.5 g/dL Normal 1.9-3.7 [facility] Specialist Comment on above: Performed By: #### C MP, CBCAD, LIPD #### [facility] [address], [place] [id number] Glucose [Mass/Vol] 127 mg/dL High 65-99 [facility] Comment on above: Result Comment: For FASTING Glucose --- ADA reference ranges: Normal 65-99 mg/dl Prediabetes 100-125 Diabetes >/= 126 Performed By: #### C MP, CBCAD, LIPD #### [facility] [address], [place] [id number] Potassium [Moles/Vol] 4.2 mmol/L Normal 3.5-5.5 [facility] Comment on above: Performed By: #### C MP, CBCAD, LIPD #### [facility] [address], [place] [id number] Protein [Mass/Vol] 7.7 g/dL Normal 6.1-8.1 [facility] Administrative Job Titles Comment on above: Performed By: #### C MP, CBCAD, LIPD #### [facility] [address], [place] [id number] Sodium [Moles/Vol] 143 mmol/L Normal 135-146 [facility] Administrative Job Titles Comment on above: Performed By: #### C MP, CBCAD, LIPD #### [facility] [address], [place] [id number] TBIL <0.3 Normal [facility] Specialist Comment on above: Performed By: #### C MP, CBCAD, LIPD #### [facility] [address] [place], [place] [id number] Urea nitrogen [Mass/Vol] 8 mg/dL Normal 7-25 [facility] Administrative Job Titles Comment on above: Performed By: #### C NORBERTO, CBCAD, LIPD #### [facility] [address], [place] [id number] Hemoglobin A1Con 08-06-2021 EAG 99.67 Normal [facility] Specialist Comment on above: Performed By: #### A 1C #### [facility] [address], [place] [id number] HbA1c (Bld) [Mass fraction] 5.1 % Normal 4.0-6.0 [facility] Specialist Comment on above: Performed By: #### A 1C #### [facility] [address], [place] [id number] Lipid Panelon 08-06-2021 Cholesterol [Mass/Vol] 190 mg/dL Normal 125-200 [facility] Comment on above: Result Comment: Low risk < 200mg/dL Borderline risk 201-239 mg/dl High risk > or equal to 240 Performed By: #### C NORBERTO, CBCAD, LIPD #### [facility] [address], [place] [id number] Cholesterol in HDL [Mass/Vol] 64 mg/dL Normal >40 [facility] Specialist Comment on above: Result Comment: High Cardiovascular Risk HDL <40 mg/dL Low Cardiovascular Risk HDL > or equal to 60 mg/dl Performed By: #### C MP, CBCAD, LIPD #### [facility] [address], [place] [id number] Cholesterol in LDL [Mass/Vol] 107 mg/dL Normal [facility] Specialist Comment on above: Result Comment: LDL ATP III CLASSIFICATION LDL less than 100 mg/dl Optimal LDL 100-129 mg/dl Near or above optimal LDL 130-159 Borderline high LDL 160-189 High LDL greater than 189 mg/dl Very High Performed By: #### C MP, CBCAD, LIPD #### [facility] [address], [place] [id number] Cholesterol in VLDL [Mass/Vol] 19 mg/dL Normal [facility] Administrative Job Titles Comment on above: Performed By: #### C MP, CBCAD, LIPD #### [facility] [address], [place] [id number] Cholesterol.total/Chol esterol in HDL [Mass ratio] 3 {ratio} Normal [facility] Administrative Job Titles Comment on above: Performed By: #### C MP, CBCAD, LIPD #### [facility] [address], [place] [id number] Triglyceride [Mass/Vol] 95 mg/dL Normal 30-150 [facility] Administrative Job Titles Comment on above: Result Comment: TRIG ATPIII CLASSIFICATIONS TRIG less than 150 mg/dl Normal TRIG 150-199 mg/dl Borderline High TRIG 200-500 mg/dl High TRIG greather than 500 mg/dl Very High Performed By: #### C NORBERTO, CBCAD, LIPD #### [facility] [address], [place] [id number] Q - CULTURE,URINE,ROUTINEon 06-04-2021 CULTURE, URINE, ROUTINE SEE NOTE Normal [facility] Administrative Job Titles Comment on above: Order Comment: [facility] performed at: [email or web address], [employer] [facility], [address] [place] [address], [address] [place] [address], [id number], Parts Manager: Tim Dotson MD [facility] Collection Date/Time: [facility] Results Received Date/Time: [facility] Reported Date/Time: Result Comment: CULT URE, URINE, ROUTINE Micro Number: [id number] Test Status: Final Specimen Source: Not given Specimen Quality: Adequate Result: Mixed genital marie isolated. These superficial bacteria are not indicative of a urinary tract infection. No further organism identification is warranted on this specimen. If clinically indicated, recollect clean-catch, mid-stream urine and transfer immediately to Urine Culture Transport Tube. Performed By: #### [id number] #### [facility] Default [address] [place] [address] MRI LUMBAR SPINE WO CONTRAST on 11-06-2018 [...] Naren Lagos MD 11/06/18 Final result Normal [facility] Vital Signs Date Time Vital Sign Value Performing Clinician Facility 12-12-2024 10:38-0400 Body height 157.5 cm Sandy Hemmer PA Work Phone: [facility] 12-12-2024 10:38-0400 Body mass index (BMI) [Ratio] 36.62 kg/m2 Sandy Hemmer PA Work Phone: [facility] 12-12-2024 10:38-0400 Body weight 90.81 kg Sandy Hemmer PA Work Phone: [facility] 12-12-2024 10:38-0400 Diastolic blood pressure 76 mm[Hg] Sandy Hemmer PA Work Phone: [facility] 12-12-2024 10:38-0400 Heart rate 89 /min Sandy Hemmer PA Work Phone: [facility] 12-12-2024 10:38-0400 Respiratory rate 16 /min Sandy Hemmer PA Work Phone: [facility] 12-12-2024 10:38-0400 SaO2% (BldA) [Mass fraction] 98 % Sandy Hemmer PA Work Phone: [facility] 12-12-2024 10:38-0400 Systolic blood pressure 112 mm[Hg] Sandy Hemmer PA Work Phone: [facility] 10-10-2024 12:31-0400 Body height 157.5 cm Shannon Darden DIRECTOR AUTOMOTIVE Work Phone: [facility] 10-10-2024 12:31-0400 Body mass index (BMI) [Ratio] 35.3 kg/m2 Shannon Navarroi DIRECTOR AUTOMOTIVE Work Phone: [facility] 10-10-2024 12:31-0400 Body weight 87.54 kg Shannon Grazjaninemaribel DIRECTOR AUTOMOTIVE Work Phone: [facility] 10-09-2024 13:00-0400 Body mass index (BMI) [Ratio] 33.83 kg/m2 Mario Harper APRN.ACCOUNT PROCESSOR Work Phone: [facility] 10-09-2024 13:00-0400 Body weight 86.64 kg Mario Harper APRN.ACCOUNT PROCESSOR Work Phone: [facility] 10-09-2024 13:00-0400 Diastolic blood pressure 76 mm[Hg] Mario Harper APRN.ACCOUNT PROCESSOR Work Phone: [facility] 10-09-2024 13:00-0400 Heart rate 106 /min Mario Harper APRN.ACCOUNT PROCESSOR Work Phone: [facility] 10-09-2024 13:00-0400 SaO2% (BldA) [Mass fraction] 99 % Mario Harper APRN.ACCOUNT PROCESSOR Work Phone: [facility] 10-09-2024 13:00-0400 Systolic blood pressure 112 mm[Hg] Mario Harper APRN.ACCOUNT PROCESSOR Work Phone: [facility] 10-08-2024 11:42-0400 Body height 157.5 cm Deena Lyn DIRECTOR AUTOMOTIVE Work Phone: [facility] 10-08-2024 11:42-0400 Body mass index (BMI) [Ratio] 34.75 kg/m2 Deena Lyn DIRECTOR AUTOMOTIVE Work Phone: [facility] 10-08-2024 11:42-0400 Body weight 86.18 kg Deena Riki DIRECTOR AUTOMOTIVE Work Phone: [facility] 10-08-2024 11:42-0400 Diastolic blood pressure 88 mm[Hg] Deena Riki DIRECTOR AUTOMOTIVE Work Phone: [facility] 10-08-2024 11:42-0400 Heart rate 110 /min Deena [place] DIRECTOR AUTOMOTIVE Work Phone: [facility] 10-08-2024 11:42-0400 Respiratory rate 16 /min Deena [place] DIRECTOR AUTOMOTIVE Work Phone: [facility] 10-08-2024 11:42-0400 SaO2% (BldA) [Mass fraction] 99 % Deena [place] DIRECTOR AUTOMOTIVE Work Phone: [facility] 10-08-2024 11:42-0400 Systolic blood pressure 134 mm[Hg] Deena [place] DIRECTOR AUTOMOTIVE Work Phone: [facility] 09-25-2024 10:25-0400 Body height 157.5 cm Deena Riki DIRECTOR AUTOMOTIVE Work Phone: [facility] 09-25-2024 10:25-0400 Body mass index (BMI) [Ratio] 35.74 kg/m2 Deena [place] DIRECTOR AUTOMOTIVE Work Phone: [facility] 09-25-2024 10:25-0400 Body weight 88.63 kg Deena [place] DIRECTOR AUTOMOTIVE Work Phone: [facility] 09-25-2024 10:25-0400 Diastolic blood pressure 72 mm[Hg] Deena Riki DIRECTOR AUTOMOTIVE Work Phone: [facility] 09-25-2024 10:25-0400 Heart rate 94 /min Deena [place] DIRECTOR AUTOMOTIVE Work Phone: [facility] 09-25-2024 10:25-0400 Respiratory rate 17 /min Deena Riki DIRECTOR AUTOMOTIVE Work Phone: [facility] 09-25-2024 10:25-0400 SaO2% (BldA) [Mass fraction] 97 % Deena Riki DIRECTOR AUTOMOTIVE Work Phone: [facility] 09-25-2024 10:25-0400 Systolic blood pressure 110 mm[Hg] Deena Riki DIRECTOR AUTOMOTIVE Work Phone: [facility] 09-17-2024 11:11-0400 Body height 157.5 cm Sandy Hemmer PA Work Phone: [facility] 09-17-2024 11:11-0400 Body mass index (BMI) [Ratio] 35.26 kg/m2 Sandy Hemmer PA Work Phone: [facility] 09-17-2024 11:11-0400 Body weight 87.45 kg Sandy Hemmer PA Work Phone: [facility] 09-17-2024 11:11-0400 Diastolic blood pressure 76 mm[Hg] Sandy Hemmer PA Work Phone: [facility] 09-17-2024 11:11-0400 Heart rate 75 /min Sandy Hemmer PA Work Phone: [facility] 09-17-2024 11:11-0400 Respiratory rate 16 /min Sandy Hemmer PA Work Phone: [facility] 09-17-2024 11:11-0400 SaO2% (BldA) [Mass fraction] 99 % Sandy Hemmer PA Work Phone: [facility] 09-17-2024 11:11-0400 Systolic blood pressure 112 mm[Hg] Sandy Hemmer PA Work Phone: [facility] 09-10-2024 13:37-0400 Body height 157.5 cm Giovani Hagen MD Work Phone: [facility] 09-10-2024 13:37-0400 Body mass index (BMI) [Ratio] 34.93 kg/m2 Giovani Hagen MD Work Phone: [facility] 09-10-2024 13:37-0400 Body weight 86.64 kg Giovani Hagen MD Work Phone: [facility] 09-10-2024 13:37-0400 Diastolic blood pressure 72 mm[Hg] Giovani Hagen MD Work Phone: [facility] 09-10-2024 13:37-0400 Heart rate 88 /min Giovani Hagen MD Work Phone: [facility] 09-10-2024 13:37-0400 SaO2% (BldA) [Mass fraction] 98 % Giovani Hagen MD Work Phone: [facility] 09-10-2024 13:37-0400 Systolic blood pressure 118 mm[Hg] Giovani Hagen MD Work Phone: [facility] 09-04-2024 16:21-0400 Body height 157.5 cm Milton Dolce DPM FACFAS Work Phone: [facility] 09-04-2024 16:21-0400 Body mass index (BMI) [Ratio] 33.65 kg/m2 Milton Dolce DPM FACFAS Work Phone: [facility] 09-04-2024 16:21-0400 Body weight 83.46 kg Milton Dolce DPM FACFAS Work Phone: [facility] 09-04-2024 16:21-0400 Diastolic blood pressure 80 mm[Hg] Milton Dolce DPM FACFAS Work Phone: [facility] 09-04-2024 16:21-0400 Heart rate 87 /min Milton Dolce DPM FACFAS Work Phone: [facility] 09-04-2024 16:21-0400 Systolic blood pressure 131 mm[Hg] Milton Dolce DPM FACFAS Work Phone: [facility] 09-02-2024 15:13-0400 Body height 157.5 cm Giovani Hagen MD Work Phone: [facility] 09-02-2024 15:13-0400 Body mass index (BMI) [Ratio] 33.65 kg/m2 Giovani Hagen MD Work Phone: [facility] 09-02-2024 15:13-0400 Body weight 83.46 kg Giovani Hagen MD Work Phone: [facility] 09-02-2024 15:13-0400 Diastolic blood pressure 82 mm[Hg] Giovani Hagen MD Work Phone: [facility] 09-02-2024 15:13-0400 Heart rate 113 /min Giovani Hagen MD Work Phone: [facility] 09-02-2024 15:13-0400 SaO2% (BldA) [Mass fraction] 97 % Giovani Hagen MD Work Phone: [facility] 09-02-2024 15:13-0400 Systolic blood pressure 132 mm[Hg] Giovani Hagen MD Work Phone: [facility] 08-21-2024 16:14-0400 Body height 157.5 cm Milton Dolce DPM FACFAS Work Phone: [facility] 08-21-2024 16:14-0400 Body mass index (BMI) [Ratio] 34.2 kg/m2 Milton Dolce DPM FACFAS Work Phone: [facility] 08-21-2024 16:14-0400 Body weight 84.82 kg Milton Dolce DPM FACFAS Work Phone: [facility] 08-21-2024 16:14-0400 Diastolic blood pressure 80 mm[Hg] Milton Dolce DPM FACFAS Work Phone: [facility] 08-21-2024 16:14-0400 Heart rate 80 /min Milton Dolce DPM FACFAS Work Phone: [facility] 08-21-2024 16:14-0400 Systolic blood pressure 127 mm[Hg] Milton Dolce DPM FACFAS Work Phone: [facility] 08-19-2024 08:48-0400 Body weight 77.11 kg Giovani Hagen MD Work Phone: [facility] 08-19-2024 07:30-0400 Body temperature 98.1 [degF] Giovani Hagen MD Work Phone: [facility] 08-19-2024 07:30-0400 Diastolic blood pressure 75 mm[Hg] Giovani Hagen MD Work Phone: [facility] 08-19-2024 07:30-0400 Heart rate 85 /min Giovani Hagen MD Work Phone: [facility] 08-19-2024 07:30-0400 Respiratory rate 18 /min Giovani Hagen MD Work Phone: [facility] 08-19-2024 07:30-0400 SaO2% (BldA) [Mass fraction] 97 % Giovani Hagen MD Work Phone: [facility] 08-19-2024 07:30-0400 Systolic blood pressure 114 mm[Hg] Giovani Hagen MD Work Phone: [facility] 08-16-2024 17:29-0400 Body height 157.48 cm Giovani Hagen MD Work Phone: [facility] 08-14-2024 16:39-0400 Body height 157.5 cm Milton Fraire DPM FACFAS Work Phone: [facility] 08-14-2024 16:39-0400 Body mass index (BMI) [Ratio] 34.2 kg/m2 Milton Dolce DPM FACFAS Work Phone: [facility] 08-14-2024 16:39-0400 Body weight 84.82 kg Milton Dolce DPM FACFAS Work Phone: [facility] 08-14-2024 16:39-0400 Diastolic blood pressure 80 mm[Hg] Milton Dolce DPM FACFAS Work Phone: [facility] 08-14-2024 16:39-0400 Heart rate 82 /min Milton Corneliusce DPM FACFAS Work Phone: [facility] 08-14-2024 16:39-0400 Systolic blood pressure 125 mm[Hg] Mitlon Corneliusce DPM FACFAS Work Phone: [facility] 08-13-2024 14:57-0400 Body height 160 cm Solo Mora MD Work Phone: [facility] 08-13-2024 14:57-0400 Body mass index (BMI) [Ratio] 31.89 kg/m2 Solo Mora MD Work Phone: [facility] 08-13-2024 14:57-0400 Body weight 81.65 kg Solo Mora MD Work Phone: [facility] 08-13-2024 14:57-0400 Diastolic blood pressure 96 mm[Hg] Solo Mora MD Work Phone: [facility] 08-13-2024 14:57-0400 Heart rate 92 /min Solo Mora MD Work Phone: [facility] 08-13-2024 14:57-0400 Systolic blood pressure 140 mm[Hg] Solo Mora MD Work Phone: [facility] 08-01-2024 14:31-0400 Body height 157.5 cm Giovani Hagen MD Work Phone: [facility] 08-01-2024 14:31-0400 Body mass index (BMI) [Ratio] 34.2 kg/m2 Giovani Hagen MD Work Phone: [facility] 08-01-2024 14:31-0400 Body weight 84.82 kg Giovani Hagen MD Work Phone: [facility] 08-01-2024 14:31-0400 Diastolic blood pressure 82 mm[Hg] Giovani Hagen MD Work Phone: [facility] 08-01-2024 14:31-0400 Heart rate 85 /min Giovani Hagen MD Work Phone: [facility] 08-01-2024 14:31-0400 SaO2% (BldA) [Mass fraction] 100 % Giovani Hagen MD Work Phone: [facility] 08-01-2024 14:31-0400 Systolic blood pressure 124 mm[Hg] Giovani Hagen MD Work Phone: [facility] 07-24-2024 16:04-0400 Body height 157.5 cm Milton Corneliusmadelyn DPM FACFAS Work Phone: [facility] 07-24-2024 16:04-0400 Body mass index (BMI) [Ratio] 34.75 kg/m2 Milton Adryanmadelyn DPM FACFAS Work Phone: [facility] 07-24-2024 16:04-0400 Body weight 86.18 kg Milton Adryanmadelyn DPM FACFAS Work Phone: [facility] [facility] 07-24[facility]24 16:04-0400 Diastolic blood pressure 88 mm[Hg] Milton Eloina DPM FACFAS Work Phone: [facility] 07-24-2024 16:04-0400 Heart rate 109 /min Milton Fraire DPM FACFAS Work Phone: [facility] 07-24-2024 16:04-0400 Systolic blood pressure 132 mm[Hg] Milton Fraire DPM FACFAS Work Phone: [facility] 07-10-2024 09:45-0400 Body height 158.8 cm Javy Boudreaux MD Work Phone: [facility] 07-10-2024 09:45-0400 Body mass index (BMI) [Ratio] 34.2 kg/m2 Javy Boudreaux MD Work Phone: [facility] 07-10-2024 09:45-0400 Body weight 86.18 kg Javy Boudreaux MD Work Phone: [facility] 07-10-2024 09:45-0400 Diastolic blood pressure 90 mm[Hg] Javy Boudreaux MD Work Phone: [facility] 07-10-2024 09:45-0400 Heart rate 108 /min Javy Boudreaux MD Work Phone: [facility] 07-10-2024 09:45-0400 Systolic blood pressure 131 mm[Hg] Javy Boudreaux MD Work Phone: [facility] 07-04-2024 15:30-0400 Body height 157.5 cm Giovani Hagen MD Work Phone: [facility] 07-04-2024 15:30-0400 Body mass index (BMI) [Ratio] 34.75 kg/m2 Giovani Hagen MD Work Phone: [facility] 07-04-2024 15:30-0400 Body weight 86.18 kg Giovani Hagen MD Work Phone: [facility] 07-04-2024 15:30-0400 Diastolic blood pressure 88 mm[Hg] Giovani Hagen MD Work Phone: [facility] 07-04-2024 15:30-0400 Heart rate 109 /min Giovani Hagen MD Work Phone: [facility] 07-04-2024 15:30-0400 SaO2% (BldA) [Mass fraction] 98 % Giovani Hagen MD Work Phone: [facility] 07-04-2024 15:30-0400 Systolic blood pressure 132 mm[Hg] Giovani Hagen MD Work Phone: [facility] 07-03-2024 14:55-0400 Body height 157.5 cm Milton Corneliusce DPM FACFAS Work Phone: [facility] 07-03-2024 14:55-0400 Body mass index (BMI) [Ratio] 34.93 kg/m2 Milton Corneliusce DPM FACFAS Work Phone: [facility] 07-03-2024 14:55-0400 Body weight 86.64 kg Milton Dolce DPM FACFAS Work Phone: [facility] 07-03-2024 14:55-0400 Diastolic blood pressure 79 mm[Hg] Milton Dolce DPM FACFAS Work Phone: [facility] 07-03-2024 14:55-0400 Heart rate 88 /min Milton Corneliusce DPM FACFAS Work Phone: [facility] 07-03-2024 14:55-0400 Systolic blood pressure 132 mm[Hg] Milton Corneliusce DPM FACFAS Work Phone: [facility] 06-26-2024 15:00-0500 Body height 157.5 cm Milton Adryanmadelyn DPM FACFAS Work Phone: [facility] 06-26-2024 15:00-0500 Body mass index (BMI) [Ratio] 34.93 kg/m2 Milton Dolce DPM FACFAS Work Phone: [facility] 06-26-2024 15:00-0500 Body weight 86.64 kg Milton Dolce DPM FACFAS Work Phone: [facility] 06-26-2024 15:00-0500 Diastolic blood pressure 79 mm[Hg] Milton Adryance DPM FACFAS Work Phone: [facility] 06-26-2024 15:00-0500 Heart rate 88 /min Milton Dolce DPM FACFAS Work Phone: [facility] 06-26-2024 15:00-0500 Systolic blood pressure 132 mm[Hg] Milton Eloina DPM FACFAS Work Phone: [facility] 06-25-2024 14:38-0500 Body mass index (BMI) [Ratio] 34.9 kg/m2 Darwin Matty DO Work Phone: [facility] 06-25-2024 14:38-0500 Body weight 86.55 kg Darwin Matty DO Work Phone: [facility] 06-25-2024 14:38-0500 Diastolic blood pressure 78 mm[Hg] Darwin Matty DO Work Phone: [facility] 06-25-2024 14:38-0500 Systolic blood pressure 130 mm[Hg] Darwin Matty DO Work Phone: [facility] 06-19-2024 14:37-0500 Body height 157.5 cm Prateek Pedraza DPM Work Phone: [facility] 06-19-2024 14:37-0500 Body mass index (BMI) [Ratio] 35.85 kg/m2 Prateek Pedraza DPM Work Phone: [facility] 06-19-2024 14:37-0500 Body weight 88.91 kg Prateek Pedraza DPM Work Phone: [facility] 06-19-2024 14:37-0500 Respiratory rate 18 /min Prateek Brown DPM Work Phone: [facility] 06-06-2024 15:42-0500 Body height 157.5 cm Giovani Hagen MD Work Phone: [facility] 06-06-2024 15:42-0500 Body mass index (BMI) [Ratio] 35.85 kg/m2 Giovani Hagen MD Work Phone: [facility] 06-06-2024 15:42-0500 Body weight 88.91 kg Giovani Hagen MD Work Phone: [facility] 06-06-2024 15:42-0500 Diastolic blood pressure 82 mm[Hg] Giovani Hagen MD Work Phone: [facility] 06-06-2024 15:42-0500 Heart rate 96 /min Giovani Hagen MD Work Phone: [facility] 06-06-2024 15:42-0500 SaO2% (BldA) [Mass fraction] 99 % Giovani Hagen MD Work Phone: [facility] 06-06-2024 15:42-0500 Systolic blood pressure 118 mm[Hg] Giovani Hagen MD Work Phone: [facility] 05-29-2024 13:49-0500 Body mass index (BMI) [Ratio] 35.81 kg/m2 Ayleen JUSTICE Work Phone: [facility] 05-29-2024 13:49-0500 Body weight 88.81 kg Ayleen JUSTICE Work Phone: [facility] 05-29-2024 13:49-0500 Diastolic blood pressure 76 mm[Hg] Ayleen JUSTICE Work Phone: [facility] 05-29-2024 13:49-0500 Systolic blood pressure 122 mm[Hg] Ayleen JUSTICE Work Phone: [facility] 05-22-2024 14:30-0500 Diastolic blood pressure 92 mm[Hg] Carol Winn MD Work Phone: [facility] 05-22-2024 14:30-0500 Heart rate 102 /min Carol Winn MD Work Phone: [facility] 05-22-2024 14:30-0500 Respiratory rate 21 /min Carol Winn MD Work Phone: [facility] 05-22-2024 14:30-0500 SaO2% (BldA) [Mass fraction] 100 % Carol Winn MD Work Phone: [facility] 05-22-2024 14:30-0500 Systolic blood pressure 133 mm[Hg] Carol Winn MD Work Phone: [facility] 05-22-2024 13:40-0500 Body height 157.5 cm Carol Winn MD Work Phone: [facility] 05-22-2024 13:40-0500 Body mass index (BMI) [Ratio] 33.84 kg/m2 Carol Winn MD Work Phone: [facility] 05-22-2024 13:40-0500 Body weight 83.92 kg Carol Winn MD Work Phone: [facility] 05-15-2024 08:50-0500 Body height 157.5 cm Milton GREWALM FACFAS Work Phone: [facility] 05-15-2024 08:50-0500 Body mass index (BMI) [Ratio] 36.21 kg/m2 Milton Fraire DPM FACFAS Work Phone: [facility] 05-15-2024 08:50-0500 Body weight 89.81 kg Milton Fraire DPM FACFAS Work Phone: [facility] 05-15-2024 08:50-0500 Diastolic blood pressure 82 mm[Hg] Milton Fraire DPM FACFAS Work Phone: [facility] 05-15-2024 08:50-0500 Heart rate 92 /min Milton Fraire DPM FACFAS Work Phone: [facility] 05-15-2024 08:50-0500 Systolic blood pressure 132 mm[Hg] Milton Fraire DPM FACFAS Work Phone: [facility] 05-09-2024 14:55-0500 Body height 157.5 cm Giovani Hagen MD Work Phone: [facility] 05-09-2024 14:55-0500 Body mass index (BMI) [Ratio] 36.21 kg/m2 Giovani Hagen MD Work Phone: [facility] 05-09-2024 14:55-0500 Body weight 89.81 kg Giovani Hagen MD Work Phone: [facility] 05-09-2024 14:55-0500 Diastolic blood pressure 88 mm[Hg] Giovani Hagen MD Work Phone: [facility] 05-09-2024 14:55-0500 Heart rate 101 /min Giovani Hagen MD Work Phone: [facility] 05-09-2024 14:55-0500 SaO2% (BldA) [Mass fraction] 96 % Giovani Hagen MD Work Phone: [facility] 05-09-2024 14:55-0500 Systolic blood pressure 134 mm[Hg] Giovani Hagen MD Work Phone: [facility] 05-08-2024 15:13-0500 Body height 157.5 cm Prateek Pedraza DPM Work Phone: [facility] 05-08-2024 15:13-0500 Body mass index (BMI) [Ratio] 35.3 kg/m2 Prateek Pedraza DPM Work Phone: [facility] 05-08-2024 15:13-0500 Body weight 87.54 kg Prateek Pedraza DPM Work Phone: [facility] 05-08-2024 15:13-0500 Respiratory rate 18 /min Prateek Pedraza DPM Work Phone: [facility] 04-30-2024 15:10-0500 Body mass index (BMI) [Ratio] 35.12 kg/m2 Darwin Matty DO Work Phone: [facility] 04-30-2024 15:10-0500 Body weight 87.09 kg Darwin Matty DO Work Phone: [facility] 04-30-2024 15:10-0500 Diastolic blood pressure 74 mm[Hg] Darwin Matty DO Work Phone: [facility] 04-30-2024 15:10-0500 Systolic blood pressure 122 mm[Hg] Darwin Matty DO Work Phone: [facility] 04-26-2024 14:12-0500 Body mass index (BMI) [Ratio] 33.87 kg/m2 Iliana Yacapraro PA-C Work Phone: [facility] 04-26-2024 14:12-0500 Body weight 84 kg Iliana Yacapraro PA-C Work Phone: [facility] 04-26-2024 14:12-0500 Diastolic blood pressure 92 mm[Hg] Iliana Yacapraro PA-C Work Phone: [facility] 04-26-2024 14:12-0500 Heart rate 84 /min Iliana Yacapraro PA-C Work Phone: [facility] 04-26-2024 14:12-0500 Systolic blood pressure 133 mm[Hg] Iliana Yacapraro PA-C Work Phone: [facility] 04-18-2024 16:42-0500 Body mass index (BMI) [Ratio] 35.67 kg/m2 Josephine Gilman DIRECTOR AUTOMOTIVE Work Phone: [facility] 04-18-2024 16:42-0500 Body temperature 97.7 [degF] Josephine Gilman DIRECTOR AUTOMOTIVE Work Phone: [facility] 04-18-2024 16:42-0500 Body weight 88.45 kg Josephine Kalina DIRECTOR AUTOMOTIVE Work Phone: [facility] 04-18-2024 16:42-0500 Diastolic blood pressure 82 mm[Hg] Josephinelatosha Gilman DIRECTOR AUTOMOTIVE Work Phone: [facility] 04-18-2024 16:42-0500 Heart rate 112 /min Josephinelatosha Gilman DIRECTOR AUTOMOTIVE Work Phone: [facility] Comment on above: repeat pulse 96bpm apical. 04-18-2024 16:42-0500 Respiratory rate 20 /min Josephine Gilman DIRECTOR AUTOMOTIVE Work Phone: [facility] 04-18-2024 16:42-0500 SaO2% (BldA) [Mass fraction] 97 % Josephinelatosha Gilman DIRECTOR AUTOMOTIVE Work Phone: [facility] 04-18-2024 16:42-0500 Systolic blood pressure 128 mm[Hg] Josephine Gilman DIRECTOR AUTOMOTIVE Work Phone: [facility] 04-03-2024 10:39-0500 Body height 157.5 cm Deena Lyn DIRECTOR AUTOMOTIVE Work Phone: [facility] 04-03-2024 10:39-0500 Body mass index (BMI) [Ratio] 35.01 kg/m2 Deena Lyn DIRECTOR AUTOMOTIVE Work Phone: [facility] 04-03-2024 10:39-0500 Body weight 86.82 kg Deena Lyn DIRECTOR AUTOMOTIVE Work Phone: [facility] 04-03-2024 10:39-0500 Diastolic blood pressure 82 mm[Hg] Deena Lyn DIRECTOR AUTOMOTIVE Work Phone: [facility] 04-03-2024 10:39-0500 Heart rate 101 /min Deena Lyn DIRECTOR AUTOMOTIVE Work Phone: [facility] 04-03-2024 10:39-0500 Respiratory rate 16 /min Deena Lyn DIRECTOR AUTOMOTIVE Work Phone: [facility] 04-03-2024 10:39-0500 SaO2% (BldA) [Mass fraction] 99 % Deena Lyn DIRECTOR AUTOMOTIVE Work Phone: [facility] 04-03-2024 10:39-0500 Systolic blood pressure 122 mm[Hg] Deena Lyn DIRECTOR AUTOMOTIVE Work Phone: [facility] 04-01-2024 08:40-0500 Body height 157.5 cm Giovani Hagen MD Work Phone: [facility] 04-01-2024 08:40-0500 Body mass index (BMI) [Ratio] 34.39 kg/m2 Giovani Hagen MD Work Phone: [facility] 04-01-2024 08:40-0500 Body weight 85.28 kg Giovani Hagen MD Work Phone: [facility] 04-01-2024 08:40-0500 Diastolic blood pressure 88 mm[Hg] Giovani Hagen MD Work Phone: [facility] 04-01-2024 08:40-0500 Heart rate 88 /min Giovani Hagen MD Work Phone: [facility] 04-01-2024 08:40-0500 SaO2% (BldA) [Mass fraction] 94 % Giovani Hagen MD Work Phone: [facility] 04-01-2024 08:40-0500 Systolic blood pressure 132 mm[Hg] Giovani Hagen MD Work Phone: [facility] 03-20-2024 16:29-0500 Body mass index (BMI) [Ratio] 34.93 kg/m2 Darwin Matty DO Work Phone: [facility] 03-20-2024 16:29-0500 Body weight 86.64 kg Darwin Matty DO Work Phone: [facility] 03-20-2024 16:29-0500 Diastolic blood pressure 72 mm[Hg] Darwin Matty DO Work Phone: [facility] 03-20-2024 16:29-0500 Systolic blood pressure 118 mm[Hg] Darwin Matty DO Work Phone: [facility] 02-06-2024 09:14-0400 Body height 157.5 cm Giovani Hagen MD Work Phone: [facility] 02-06-2024 09:14-0400 Body mass index (BMI) [Ratio] 34.93 kg/m2 Giovani Hagen MD Work Phone: [facility] 02-06-2024 09:14-0400 Body weight 86.64 kg Giovani Hagen MD Work Phone: [facility] 02-06-2024 09:14-0400 Diastolic blood pressure 88 mm[Hg] Giovani Hagen MD Work Phone: [facility] 02-06-2024 09:14-0400 Heart rate 106 /min Giovani Hagen MD Work Phone: [facility] 02-06-2024 09:14-0400 SaO2% (BldA) [Mass fraction] 99 % Giovani Hagen MD Work Phone: [facility] 02-06-2024 09:14-0400 Systolic blood pressure 130 mm[Hg] Giovani Hagen MD Work Phone: [facility] 01-22-2024 13:37-0400 Diastolic blood pressure 74 mm[Hg] Darwin Matty DO Work Phone: [facility] 01-22-2024 13:37-0400 Systolic blood pressure 112 mm[Hg] Darwin Matty DO Work Phone: [facility] 01-09-2024 16:00-0400 Body height 157.5 cm Giovani Hagen MD Work Phone: [facility] 01-09-2024 16:00-0400 Body mass index (BMI) [Ratio] 34.75 kg/m2 Giovani Hagen MD Work Phone: [facility] 01-09-2024 16:00-0400 Body weight 86.18 kg Giovani Hagen MD Work Phone: [facility] 01-09-2024 16:00-0400 Diastolic blood pressure 84 mm[Hg] Giovani Hagen MD Work Phone: [facility] 01-09-2024 16:00-0400 Heart rate 96 /min Giovani Hagen MD Work Phone: [facility] 01-09-2024 16:00-0400 SaO2% (BldA) [Mass fraction] 98 % Giovani Hagen MD Work Phone: [facility] 01-09-2024 16:00-0400 Systolic blood pressure 124 mm[Hg] Giovani Hagen MD Work Phone: [facility] 12-28-2023 15:17-0400 Blood Pressure Location BHAVESH DEJESUS [facility] 12-28-2023 15:17-0400 Diastolic blood pressure 100 mm[Hg] BHAVESH OLEG [facility] 12-28-2023 15:17-0400 Heart rate 101 /min BHAVESH OLEG [facility] 12-28-2023 15:17-0400 Respiratory rate 18 /min BHAVESH OLEG [facility] 12-28-2023 15:17-0400 Systolic blood pressure 146 mm[Hg] BHAVESH OLEG [facility] 12-26-2023 15:07-0400 Body height 157.5 cm Giovani Hagen MD Work Phone: [facility] 12-26-2023 15:07-0400 Body mass index (BMI) [Ratio] 34.2 kg/m2 Giovani Hagen MD Work Phone: [facility] 12-26-2023 15:07-0400 Body weight 84.82 kg Giovani Hagen MD Work Phone: [facility] 12-26-2023 15:07-0400 Diastolic blood pressure 78 mm[Hg] Giovani Hagen MD Work Phone: [facility] 12-26-2023 15:07-0400 Heart rate 98 /min Giovani Hagen MD Work Phone: [facility] 12-26-2023 15:07-0400 SaO2% (BldA) [Mass fraction] 98 % Giovani Hagen MD Work Phone: [facility] 12-26-2023 15:07-0400 Systolic blood pressure 112 mm[Hg] Giovani Hagen MD Work Phone: [facility] 12-19-2023 15:01-0400 Body height 157.5 cm Solo Mora MD Work Phone: [facility] 12-19-2023 15:01-0400 Body mass index (BMI) [Ratio] 34.39 kg/m2 Solo Mora MD Work Phone: [facility] 12-19-2023 15:01-0400 Body weight 85.28 kg Solo Mora MD Work Phone: [facility] 12-19-2023 15:01-0400 Diastolic blood pressure 91 mm[Hg] Solo Mora MD Work Phone: [facility] 12-19-2023 15:01-0400 Heart rate 94 /min Solo Mora MD Work Phone: [facility] 12-19-2023 15:01-0400 Systolic blood pressure 127 mm[Hg] Solo Mora MD Work Phone: [facility] 11-02-2022 13:10-0400 Body height 157.5 cm Samuel Freeman MD Work Phone: [facility] 11-02-2022 13:10-0400 Body weight 71 kg Samuel Freeman MD Work Phone: [facility] 11-02-2022 13:10-0400 Diastolic blood pressure 97 mm[Hg] Samuel Freeman MD Work Phone: [facility] 11-02-2022 13:10-0400 Heart rate 100 /min Samuel Freeman MD Work Phone: [facility] 11-02-2022 13:10-0400 Systolic blood pressure 141 mm[Hg] Samuel Freeman MD Work Phone: [facility] 08-31-2022 15:30-0400 Diastolic blood pressure 91 mm[Hg] Carol Winn MD Work Phone: [facility] 08-31-2022 15:30-0400 Heart rate 99 /min Carol Winn MD Work Phone: [facility] 08-31-2022 15:30-0400 Respiratory rate 24 /min Carol Winn MD Work Phone: [facility] 08-31-2022 15:30-0400 SaO2% (BldA) [Mass fraction] 97 % Carol Winn MD Work Phone: [facility] 08-31-2022 15:30-0400 Systolic blood pressure 140 mm[Hg] Carol Winn MD Work Phone: [facility] 08-31-2022 14:10-0400 Body height 157.5 cm Carol Winn MD Work Phone: [facility] 08-31-2022 14:10-0400 Body mass index (BMI) [Ratio] 33.84 kg/m2 Carol Winn MD Work Phone: [facility] 08-31-2022 14:10-0400 Body weight 83.92 kg Carol Winn MD Work Phone: [facility] 06-30-2022 12:40-0500 Diastolic blood pressure 85 mm[Hg] Carol Winn MD Work Phone: [facility] 06-30-2022 12:40-0500 Heart rate 70 /min Carol Winn MD Work Phone: [facility] 06-30-2022 12:40-0500 Respiratory rate 12 /min Carol Winn MD Work Phone: [facility] 06-30-2022 12:40-0500 SaO2% (BldA) [Mass fraction] 100 % Carol Winn MD Work Phone: [facility] 06-30-2022 12:40-0500 Systolic blood pressure 120 mm[Hg] Carol Winn MD Work Phone: [facility] 06-30-2022 11:18-0500 Body height 157.5 cm Carol Winn MD Work Phone: [facility] 06-30-2022 11:18-0500 Body mass index (BMI) [Ratio] 33.84 kg/m2 Carol Winn MD Work Phone: [facility] 06-30-2022 11:18-0500 Body weight 83.92 kg Carol Winn MD Work Phone: [facility] 05-27-2022 11:29-0500 Body weight 85.73 kg Carol Winn MD Work Phone: [facility] 05-27-2022 11:29-0500 Diastolic blood pressure 92 mm[Hg] Carol Winn MD Work Phone: [facility] 05-27-2022 11:29-0500 Heart rate 102 /min Carol Winn MD Work Phone: [facility] 05-27-2022 11:29-0500 Systolic blood pressure 145 mm[Hg] Carol Winn MD Work Phone: [facility] 05-03-2022 15:30-0500 Body height 158.75 cm Imad Asaad Other [employer] Other 05-03-2022 15:30-0500 Body mass index (BMI) [Ratio] 34.55 kg/m2 Imad Asaad Other [employer] Other 05-03-2022 15:30-0500 Body weight 87.09 kg Imad Asaad Other [employer] Other 05-03-2022 15:30-0500 Diastolic blood pressure 91 mm[Hg] Imad Asaad Other [employer] Other 05-03-2022 15:30-0500 Systolic blood pressure 130 mm[Hg] Imad Asaad Other [employer] Other 05-03-2022 14:47-0500 Body weight 0 kg MD Giovani Hagen Work Phone: [facility] Encounters Encounter Date Encounter Type Care Provider Facility Start: 12-30-2024 ambulatory Madhuri MISHRA Facility:[facility] Start: 12-12-2024 End: 12-12-2024 Bamboo manjit JUSTICE Work Phone: [facility] Start: 12-12-2024 End: 12-12-2024 Bamgeremiaso manjit JUSTICE Work Phone: [facility] Start: 12-12-2024 End: 12-12-2024 Office outpatient visit 25 minutes Sandy JUSTICE Work Phone: [facility] Comment on above: Elevated liver enzymes (Primary Dx); Nephrocalcinosis; Bilateral nephrolithiasis; Right ovarian cyst; Hypokalemia; Weight gain; Attention deficit hyperactivity disorder (ADHD), predominantly inattentive type ; History of alcohol dependence (HCC); Impaired fasting glucose; Other fatigue; Anxiety; Other chronic pain Start: 12-09-2024 End: 12-09-2024 ambulatory MILTON FRAIRE Not Available Start: 10-30-2024 End: 10-30-2024 Michael JUSTICE Work Phone: [facility] Comment on above: Anxiety; Bipolar disorder, in partial remission, most recent episode manic (HCC) Start: 10-23-2024 End: 10-23-2024 Clinisync Result Encounter Generic External Data Provider [facility] Unsolicited Start: 10-23-2024 End: 10-23-2024 Clinisync Result Encounter Generic External Data Provider [facility] External [facility] Unsolicited Start: 10-23-2024 ambulatory MARIO HARPER Facility:[facility] Start: 10-23-2024 End: 10-23-2024 Subsequent hospital visit by physician General Iona Mtat Mc Work Phone: Radiology Comment on above: Pelvic floor dysfunction [M62.89] Start: 10-21-2024 End: 10-21-2024 Clinisync Result Encounter Shannon Darden NP Work Phone: [facility] Unsolicited Start: 10-21-2024 End: 10-21-2024 Clinisync Result Encounter Shannon Darden NP Work Phone: [facility] Unsolicited Start: 10-21-2024 ambulatory MARIO MEREDITH Facility:[facility] Start: 10-21-2024 End: 10-21-2024 Subsequent hospital visit by physician [facility] Work Phone: [facility] General Comment on above: Pelvic floor dysfunction [M62.89] Start: 10-15-2024 End: 10-15-2024 ambulatory MARIO HARPER Facility:[facility] Start: 10-15-2024 End: 10-15-2024 Admission to same day surgery center Mario Harper APRN.ACCOUNT PROCESSOR Work Phone: Colorectal Surgery Start: 10-15-2024 End: 10-15-2024 Patient encounter procedure Mario Harper APRN.ACCOUNT PROCESSOR Work Phone: [facility] Surgery Start: 10-11-2024 End: 10-11-2024 ambulatory Lydia Rock PT, DPT Work Phone: [facility] Start: 10-11-2024 End: 10-11-2024 Patient encounter procedure Lydia Pranav PT, DPT Work Phone: [facility] Comment on above: Muscle spasm (Primary Dx); Pelvic floor dysfunction; Chronic constipation Start: 10-11-2024 End: 10-11-2024 ambulatory LYDIA ROCK Facility:[facility] Start: 10-10-2024 End: 10-10-2024 Bamboo flowsheet Shannon Darden DIRECTOR AUTOMOTIVE Work Phone: [facility] Start: 10-10-2024 End: 10-10-2024 Bamboo flowsheet Shannon Darden DIRECTOR AUTOMOTIVE Work Phone: [facility] Start: 10-10-2024 End: 10-10-2024 Office outpatient new 45 minutes Shannon Darden DIRECTOR AUTOMOTIVE Work Phone: [facility] 210 Comment on above: Numbness and tingling (Primary Dx); Atypical migraine Start: 10-10-2024 End: 10-10-2024 ambulatory SHANNON DARDEN Not Available Start: 10-09-2024 End: 10-09-2024 Patient encounter procedure Mario Harper APRN.ACCOUNT PROCESSOR Work Phone: Colorectal Surgery Comment on above: Pelvic floor dysfunction (Primary Dx); Chronic constipation; Gastroparesis Start: 10-09-2024 End: 10-09-2024 ambulatory MARIO HARPER Facility:[facility] Start: 10-08-2024 End: 10-08-2024 Bamboo flowsheet Deena Lyn DIRECTOR AUTOMOTIVE Work Phone: [facility] Start: 10-08-2024 End: 10-08-2024 Bamboo flowsheet Deena Lyn DIRECTOR AUTOMOTIVE Work Phone: [facility] Start: 10-08-2024 End: 10-08-2024 Refill Deena Lyn DIRECTOR AUTOMOTIVE Work Phone: [facility] Comment on above: Attention deficit hyperactivity disorder (ADHD), predominantly inattentive type ; Bipolar disorder, in partial remission, most recent episode manic (HCC); Agoraphobia with panic attacks Start: 10-08-2024 End: 10-08-2024 Office outpatient visit 25 minutes Deena Lyn DIRECTOR AUTOMOTIVE Work Phone: [facility] Comment on [...] 09-25-2024 End: 09-25-2024 Bamboo flowsheet Deena Lyn DIRECTOR AUTOMOTIVE Work Phone: [facility] Start: 09-25-2024 End: 09-25-2024 Bamboo flowsheet Deena Lyn DIRECTOR AUTOMOTIVE Work Phone: [facility] Start: 09-25-2024 End: 09-25-2024 Office outpatient visit 25 minutes Deena Lyn DIRECTOR AUTOMOTIVE Work Phone: [facility] Comment on above: Extrusion of suture, sequela (Primary Dx ) Start: 09-25-2024 End: 09-25-2024 ambulatory DEENA LYN Not Available Start: 09-17-2024 End: 09-17-2024 Bamboo flowsheet Sandy JUSTICE Work Phone: [facility] Start: 09-17-2024 End: 09-17-2024 Bamboo flowsheet Sandy Hammond PA Work Phone: [facility] Start: 09-17-2024 End: 09-17-2024 Office outpatient visit 15 minutes Sandy JUSTICE Work Phone: [facility] Comment on above: Laceration of right knee without complic ation, sequela (Primary Dx) Start: 09-17-2024 End: 09-17-2024 ambulatory SANDY HAMMOND Not Available Start: 09-10-2024 End: 09-10-2024 Office [...] / Non-visit Giovani Hagen MD Work Phone: [facility] OutPt Work Phone: Start: 08-16-2024 End: 08-19-2024 Evaluation and management of inpatient Giovani Hagen MD Work Phone: [facility] Work Phone: Start: 08-14-2024 End: 08-14-2024 [...] (Primary Dx) Start: 08-13-2024 End: 08-13-2024 ambulatory SOLO MORA Facility:[facility] Start: 08-13-2024 End: 08-13-2024 [facility] Start: 08-13-2024 ambulatory SOLO MORA Facility:[facility] Start: 08-01-2024 End: 08-01-2024 Office outpatient [...] End: 07-10-2024 Subsequent hospital visit by physician [facility] [address] Work Phone: Radiology Comment on above: Chronic idiopathic constipation [K59.04] Start: 07-10-2024 End: 07-10-2024 ambulatory [facility] Work Phone: Obstetrics/Gynecology Start: 07-10-2024 End: 09-05-2024 [...] 07-03-2024 End: 07-03-2024 Patient encounter procedure Milton Gonzalez Dolce DPM FACFAS Work Phone: [facility] [...] 06-26-2024 End: 06-26-2024 Patient encounter procedure Milton Gonzalez Dolce DPM FACFAS Work Phone: [facility] NMA [...] 06-25-2024 Office outpatient visit 15 minutes Darwin Starr [...] encounter Start: 06-19-2024 End: 06-19-2024 ambulatory PRATEEK PEDRAAZ Not Available Start: 06-19-2024 End: 06-19-2024 Bamboo [...] Start: 05-22-2024 End: 05-22-2024 ambulatory OBED BHATT Facility:[facility] Start: 05-22-2024 End: 05-22-2024 Clinisync Result [...] Start: 05-15-2024 End: 05-15-2024 Bamboo flowsheet Milton Gonzalez Fraire DPM FACFAS Work Phone: [facility] [...] Transcribe Orders Rosario Mcconnell MD Work Phone: [facility] Comment on above: ENGLISH (nonalcoholic steatohepatitis) (Rosanne osman Dx) Start: 05-09-2024 End: 05-09-2024 Office outpatient visit 15 minutes Giovani Hagen MD Work Phone: [facility] Comment on above: Cervical radiculopathy due to degenerati ve joint disease of spine (Primary Dx) Start: 05-09-2024 End: 05-09-2024 Orders Only Lydia Roblesorelli DO Work Phone: Orthopaedics Comment on above: [...] in partial remission, most recent episode manic ([facility] Start: 05-06-2024 End: 05-06-2024 Telephone encounter Solo [...] Start: 04-26-2024 End: 04-26-2024 ambulatory ILIANA MERCADO Facility:[facility] Start: 04-26-2024 End: 04-26-2024 Patient encounter procedure Floresleonardo Kelley DO Work Phone: Orthopaedics Comment on [...] Office outpatient visit 25 minutes Josephine Gilman DIRECTOR AUTOMOTIVE Work Phone: [facility] Comment on above: Acute bronchitis with asthma (CMS/HCC) ( Primary Dx) Start: 04-16-2024 End: 04-16-2024 ambulatory RUGEN M HIEU Not Available Start: 04-09-2024 End: 04-09-2024 ambulatory SOLO MORA Facility:[facility] Start: 04-05-2024 End: 04-09-2024 ambulatory [facility] Provider Cardiology Comment on above: Surgical Clearance Start: 04-05-2024 End: 04-05-2024 Telephone encounter Solo Mora MD Work Phone: Cardiology Comment on above: Received Outside Medical Records (Cardio Clearance [facility] [place]) Start: 04-03-2024 End: 04-03-2024 ambulatory DEENA LYN Not Available Start: 04-03-2024 End: 04-03-2024 Office outpatient visit 25 minutes Deena Lyn DIRECTOR AUTOMOTIVE Work Phone: [facility] Comment on above: Hypokalemia (Primary Dx); Elevated blood sugar; Pre-operative clearance; Acute pain of left shoulder; Obesity (BMI 35.0-39.9 without comorbidity) Start: 04-03-2024 End: 04-03-2024 Preoperative state Deena Lyn DIRECTOR AUTOMOTIVE Work Phone: [facility] Start: 04-02-2024 End: 04-02-2024 Telephone encounter Solo Mora MD Work Phone: Cardiology Comment on above: Received Outside Medical Records ([facility] [place]) Start: 04-01-2024 End: 04-01-2024 ambulatory GIOVANI Bob [...] Start: 03-19-2024 End: 03-19-2024 ambulatory Anitra Ricci TAX SERVICES INTERN [facility] Comment on above: Cervical radiculopathy (Primary Dx) Start: 03-11-2024 End: 03-11-2024 ambulatory Arun Brink TAX SERVICES INTERN [facility] Comment on above: Cervical radiculopathy (Primary Dx) Start: 03-11-2024 End: 03-11-2024 Bamboo flowsheet Arun Brink TAX SERVICES INTERN [facility] Start: 03-11-2024 End: 03-11-2024 Bamboo flowsheet Arun Brink TAX SERVICES INTERN [facility] Start: 03-07-2024 End: 03-07-2024 Refill Giovani Hagen MD Work Phone: [facility] Comment on above: Obesity (BMI 35.0-39.9 without comorbidi ty) Start: 03-06-2024 End: 03-07-2024 ambulatory Arun Brink TAX SERVICES INTERN [facility] Comment on above: Cervical radiculopathy (Primary Dx) Anxiety; Bipolar disorder, in partial remission, most recent episode manic (CMS/HCC) Start: 02-29-2024 End: 02-29-2024 ambulatory Anitra Kelbley TAX SERVICES INTERN [facility] Comment on above: Cervical radiculopathy (Primary Dx) Start: 02-29-2024 End: 02-29-2024 Bamboo flowsheet Anitra Kelbley TAX SERVICES INTERN [facility] Start: 02-29-2024 End: 02-29-2024 Bamboo flowsheet Anitra Kelbley TAX SERVICES INTERN [facility] Start: 02-27-2024 End: 02-27-2024 ambulatory Anitra Kelbley TAX SERVICES INTERN [facility] Comment on above: Cervical radiculopathy (Primary Dx) Start: 02-27-2024 End: 02-27-2024 Bamboo flowsheet Anitra Kelbley TAX SERVICES INTERN [facility] Start: 02-27-2024 End: 02-27-2024 Bamboo flowsheet Anitra Kelbley TAX SERVICES INTERN [facility] Start: 02-20-2024 End: 02-20-2024 Refill Audrey Perez LPN [facility] Comment on above: Attention deficit hyperactivity disorder (ADHD), predominantly inattentive type (CMS/HCC) Start: 02-14-2024 End: 02-15-2024 ambulatory Arun Brink TAX SERVICES INTERN [facility] Comment on above: Cervical radiculopathy (Primary Dx) Start: 02-14-2024 End: 02-14-2024 Bamboo flowsheet Arun Brink TAX SERVICES INTERN [facility] Start: 02-14-2024 End: 02-14-2024 Bamboo flowsheet Arun Brink TAX SERVICES INTERN [facility] Start: 02-12-2024 End: 02-12-2024 ambulatory Zhen Bugress PT Work Phone: [facility] Comment on above: Cervical radiculopathy (Primary Dx) Start: 02-12-2024 End: 02-12-2024 Bamboo flowsheet Zhen Burgess PT Work Phone: [facility] Start: 02-12-2024 End: 02-12-2024 Bamboo flowsheet Zhen Burgess PT Work Phone: [facility] Start: 02-07-2024 End: 02-07-2024 ambulatory Arun Brink TAX SERVICES INTERN [facility] Comment on above: Cervical radiculopathy (Primary Dx) Start: 02-07-2024 End: 02-07-2024 Bamboo flowsheet Arun Brink TAX SERVICES INTERN [facility] Start: 02-07-2024 End: 02-07-2024 Bamboo flowsheet Arun Brink TAX SERVICES INTERN [facility] Start: 02-06-2024 End: 02-06-2024 Office outpatient visit 25 minutes Giovani Hagen MD Work Phone: [facility] Comment on above: Localized edema (Primary Dx); Obesity (BMI 35.0-39.9 without comorbidity); Injury of right ankle, subsequent encounter; Anxiety; Bipolar disorder, in partial remission, most recent episode manic ([facility]) Start: 02-06-2024 End: 02-06-2024 ambulatory [...] PT Initial Eval (Tried to contact to [facility] PT Eval for cervical radiculopathy; but [...] encounter procedure BHAVESH DEJESUS [facility] Start: 12-28-2023 End: 12-29-2023 ambulatory [facility] Provider Cardiology Comment on above: Zio Start: 12-26-2023 End: 12-26-2023 ambulatory GIOVANI HAGEN Not Available Start: 12-26-2023 End: 12-26-2023 Office outpatient visit 25 minutes Giovani Hagen MD Work Phone: [facility] Comment on above: Cervical radiculopathy (Primary Dx); Acute nonintractable headache, unspecified headache type; Nausea and vomiting, unspecified vomiting type Start: 12-19-2023 End: 12-21-2023 Orders Only Solo Mora MD Work Phone: Cardiology Comment on above: Syncope and collapse (Primary Dx) Event (ZIO PATCH) Syncope, unspecified syncope type (Primary Dx) Start: 12-18-2023 End: 02-01-2024 Telephone encounter Benito Kendrick [facility] Comment on above: Lab results Start: 12-13-2023 End: 12-13-2023 Clinisync Result Encounter Generic External Data Provider [facility] External Department Unsolicited Start: 12-13-2023 End: 12-13-2023 Clinisync Result Encounter Generic External Data Provider [facility] External Department Unsolicited Start: 12-04-2023 End: 12-12-2024 Patient encounter status Zhen Burgess PT Work Phone: [facility] Start: 11-02-2023 Orders Only Solo Mora MD Work Phone: Cardiology Comment on above: Gastroparesis (Primary Dx) Patient Update (Refe rral & Records are in Care Everywhere) Start: 03-22-2023 End: 03-24-2023 Evaluation and management of inpatient [facility] Start: 03-20-2023 ambulatory Carol Winn MD [...] Hagen Work Phone: [facility] Main [place] Work Phone: Start: 10-18-2022 ambulatory Maria Dolores Corey DO Work Phone: Gastroenterology Start: 10-18-2022 Telephone encounter Maria Dolores Rodney Emleonardo CASTANEDA Work Phone: Gastroenterology Comment on above: Medication Preauthorization (M[employer]) Results Start: 10-17-2022 End: 10-17-2022 Patient encounter procedure [facility] Work Phone: Gastroenterology Comment on above: Gastroparesis (Primary Dx) Start: 09-12-2022 End: 09-12-2022 Subsequent hospital visit by physician [facility] Work Phone: [facility] Radiology Molecular Comment on above: Nausea [R11.0] Start: 08-31-2022 End: 08-31-2022 Subsequent hospital visit by physician Carol Winn MD Work Phone: Ambulatory Surgery Comment on above: PUD (peptic ulcer disease) [K27.9] Start: 08-24-2022 Telephone encounter Nurse Renner [facility] Work Phone: Gastroenterology Comment on above: Appointment Start: 07-08-2022 End: 07-08-[address] MADHURI MISHRA . Facility:H1 Start: 07-06-2022 End: 07-07-[address] MADHURI MISHRA . Facility:[facility] Start: 07-05-2022 End: 07-05-2022 Patient encounter procedure Madhuri MISHRA [facility] Start: 07-04-2022 Orders Only Carol Winn MD Work Phone: Gastroenterology Start: 06-30-2022 End: 06-30-2022 Subsequent hospital visit by physician Carol Winn MD Work Phone: Ambulatory Surgery Comment on above: Bilious vomiting with nausea [R11.14] Start: 06-29-2022 End: 06-30-[address] MADHURI MISHRA . Facility:[facility]1 Start: 06-29-2022 End: 06-29-2022 Lab Drop off Madhuri MISHRA [facility] Start: 06-23-2022 ambulatory Carol Winn MD Work Phone: Gastroenterology Comment on above: EGD instructions Start: 06-23-2022 E-mail encounter from caregiver aCrol Winn MD Work Phone: [facility] Start: 06-16-2022 ambulatory [facility] Provider Gastroenterology Comment on above: Question regarding US ABD RT UPPER QUADR ANT Start: 06-15-2022 End: 06-15-2022 Subsequent hospital visit by physician [facility] Work Phone: [facility] Radiology Ultrasound Comment on above: Liver lesion [K76.9] Start: 06-14-2022 Orders Only Carol Winn MD Work Phone: Ambulatory Surgery Comment on above: Liver lesion (Primary Dx) Results Start: 06-10-2022 ambulatory Diamond Pycraft RT(R) Radiology Ct Scan Comment on above: Radiology CT Start: 06-10-2022 Patient encounter procedure Diamond Pycraft RT(R) [facility] Start: 06-10-2022 End: 06-10-2022 Subsequent hospital visit by physician Ct Prep [facility] C[facility] Radiology Ct Scan Comment on above: Bilious vomiting with nausea [R11.14] Start: 05-27-2022 End: 05-27-2022 Subsequent hospital visit by physician Xr [facility] Work Phone: [facility] Radiology General Comment on above: SOB [...] Work Phone: Start: 05-03-2022 End: 05-04-2022 ambulatory [email or web address] Other Start: 05-03-2022 Office consultation new/estab patient 60 min Imad Asaad [facility] Gastroenter[facility] Start: 04-20-2022 End: 04-20-[address] AURORA IRBY . Facility:[facility]1 Start: 04-06-2022 End: 04-07-[address] GIOVANI HAGEN Facility:[facility]1 Start: 12-21-2021 End: 12-22-[address] AURORA IRBY . Facility:[facility]1 Start: 12-10-2021 End: 12-10-2021 Subsequent hospital visit by physician Us [facility] Ultrasound Comment on above: Elevated LFTs [...] 11-06-2018 End: 11-09-2018 Patient encounter procedure OZIEL [facility] Procedures Date Procedure Procedure Detail Performing Clinician Start: 10-23-2024 Radiologic exam abdomen 1 view Mario Harper APRN.ACCOUNT PROCESSOR Work Phone: Start: 10-23-2024 XR ABDOMEN 1V SUPINE Generic External Data Provider Start: 10-21-2024 MRI HEAD/BRAIN WO/W CONTR Shannon Darden DIRECTOR AUTOMOTIVE Work Phone: Start: 10-15-2024 [facility] ANORECTAL MANOMETRY Mario Harper APRN.ACCOUNT PROCESSOR Work Phone: Start: 07-10-2024 Us pelvic nonobstetric real-time image complete Javy Boudreaux MD Work Phone: Start: 07-03-2024 Radex ankle complete minimum 3 views Milton Fraire DPM FACFAS Work Phone: Start: 06-25-2024 RECURRENT VAGINITIS (HTRX) Darwin Starr D O Work Phone: Start: 05-27-2024 MLR [...] ALL CBC WITH AUTO DIFF Dez R Vinicius DPM Work Phone: Start: 04-18-2023 History of [...] 12-10-2021 Us abdominal real time w/image limited Caorl Winn MD Work Phone: Start: 05-01-2019 Cystourethroscopy with dilation of urethral stricture Madhuri MISHRA Start: 11-07-2018 RADIOLOGY REPORT OZIEL CAYETANO Start: 11-06-2018 Mri spinal canal lumbar w/o [...] to present section Madhuri SERRANO Cholecystectomy BHAVESH SANDRA LEO H/O: hysterectomy H/O: hysterectomy Darwin Matty DO Work Phone: Hysterectomy Madhuri MISHRA Plan of Treatment Date Care Activity Detail Author Start: 09-06-2034 Urine microalbumin profile DTaP,Tdap,Td Vaccine (7 - Td or Tdap) [facility] Start: 12-26-2024 End: 12-26-2024 Patient encounter procedure [facility] Start: 12-23-2024 Influenza vaccination [facility] Comment on above: Postponed from 12/24/2023 (Other Medical Reasons) Start: 12-16-2024 End: 12-16-2024 Patient encounter procedure 12/16/2024 9:45 AM EDT Office Visit [facility] [place] [facility] [address] [facility] [address] [place] [address] Giovani Hagen MD [address] [facility] [address] [place] [address] [facility] [facility] Start: 12-13-2024 End: 12-13-2024 Patient encounter procedure 12/13/2024 9:40 AM EDT Office Visit [facility] [address] [place] [address] Milton Fraire, DPM FACFAS [address] [facility] [place] [address] [facility] POD Start: 12-12-2024 End: 12-12-2024 Patient encounter procedure 12/12/2024 10:30 AM EDT Office Visit [facility] [place] [facility] [address] [facility] [address] [place] [address] Sandy Hammond PA [address] [facility] [address] [place] [address] Elevated liver enzymes (Primary Dx); Nephrocalcinosis; Bilateral nephrolithiasis; Right ovarian cyst; Hypokalemia [facility] [place] [facility] Comment on above: Elevated liver enzymes (Primary Dx); Nephrocalcinosis; Bilateral nephrolithiasis; Right ovarian cyst; Hypokalemia Start: 11-18-2024 End: 11-18-2024 Patient encounter procedure 11/18/2024 12:00 PM EDT Procedure Visit [facility] [address] [facility] [address] [place] [phone] [facility] Start: 11-04-2024 End: 11-04-2024 Patient encounter procedure 11/04/2024 2:00 PM EDT Office Visit Gynecology [address] [place] [address] Emma Ying APRN.ACCOUNT PROCESSOR [address] [place] [address] Other specified dyspareunia Gynecology Comment on above: Other specified dyspareunia Start: 10-29-2024 End: 10-29-2024 Patient encounter procedure 10/29/2024 10:00 AM EDT Procedure Visit [facility] NEURO [address] [place] [address] [facility] NEURO [address] Start: 10-15-2024 End: 10-15-2024 Admission to same day surgery center 10/15/2024 10:30 AM EDT Procedure Colorectal Surgery [address] [facility] [address] [place], [place] [id number] Mario Harper APRN.ACCOUNT PROCESSOR [address] [place] [address] manometry Colorectal Surgery Comment on above: manometry Start: 10-10-2024 End: 10-10-2025 EMG 1 Ext[facility] EMG 1 [facility] Neurology Routine Numbness and tingling Expected: 10/10/2024 (Approximate), Expires: 10/10/2025 [facility] Comment on above: Expected: 10/10/2024 (Approximate), Expi res: 10/10/2025 Start: 10-10-2024 End: 10-10-2025 MR Brain WO and W contrast IV MR brain w and wo contrast routine Imaging Routine Numbness and tingling Atypical migraine Expected: 10/10/2024 (Approximate), Expires: 10/10/2025 [facility] Work Phone: Comment on above: Expected: 10/10/2024 (Approximate), Expi res: 10/10/2025 Start: 10-10-2024 End: 10-10-2024 Patient encounter procedure [facility] NEURO 210 Comment on above: Arrived Start: 09-25-2024 End: 09-25-2024 Patient encounter procedure 09/25/2024 10:30 AM EDT Office Visit [facility] FM [address] [place] [address] Deena Lyn NP [address] [facility] [address] [place] [address] Arrived [facility] Comment on above: Arrived Start: 09-17-2024 End: 09-17-2024 Patient encounter procedure [facility] Comment on above: Arrived Start: 09-04-2024 End: 09-04-2024 Patient encounter procedure 09/04/2024 4:40 PM EDT Office Visit [facility] [address] [facility] [facility] [address] Milton Fraire, DPM FACFAS [address] [place] [address] [facility] N[facility] POD Start: 09-02-2024 End: 09-02-2024 Patient encounter procedure 09/02/2024 3:00 PM EDT Office Visit [facility] [address] [facility] [address] [place] [address] Giovani Hagen MD [address] [facility] [address] [place] [address] [facility] Start: 08-21-2024 End: 08-21-2024 Patient encounter procedure 08/21/2024 4:00 PM EDT Office Visit [facility] [address] [facility] [facility] [address] Milton Fraire, DPM FACFAS [address] [place] [address] [facility] POD Start: 08-19-2024 [facility] Start: 08-16-2024 Hospital admission [facility] Start: 08-16-2024 [facility] Start: 08-14-2024 End: 08-14-2024 Patient encounter procedure 08/14/2024 4:10 PM EDT Office Visit [facility] [address] [facility] [facility] [address] Milton Fraire, DPM FACFAS [address] [place] [address] [facility] Start: 08-13-2024 End: 08-13-2024 Patient encounter procedure 08/13/2024 2:30 PM EDT Office Visit Cardiology [address] [place] [address] Solo Mora MD [address] [place] [address] Dx: Syncope, unspecified syncope type [R55] Cardiology Comment on above: Dx: Syncope, unspecified syncope type [R 55] Start: 08-13-2024 End: 08-13-2024 Patient encounter procedure 08/13/2024 12:30 PM EDT Office Visit Cardiology [address] [place] [address] Dx: Syncope, unspecified syncope type [R55] Cardiology Comment on above: Dx: Syncope, unspecified syncope type [R 55] Start: 08-13-2024 End: 08-13-2024 Patient encounter procedure 08/13/2024 10:30 AM EDT Office Visit Cardiology [address] [place] [address] Dx: Syncope, unspecified syncope type [R55] Cardiology Comment on above: Dx: Syncope, unspecified syncope type [R 55] Start: 08-01-2024 End: 08-01-2024 Patient encounter procedure 08/01/2024 2:30 PM EDT Office Visit [facility] [address] [facility] 110 [place] [address] Giovani Hagen MD [address] [facility] [address] [place] [address] [facility] Start: 07-26-2024 End: 07-26-2024 ambulatory 07/26/2024 8:40 AM EDT [facility] Gastroenterology [address] [place] [address] [place] [address] [place] [address] Elevated LFT, per Pt Gastroenterology Comment on above: Elevated LFT, per Pt Start: 07-24-2024 End: 07-24-2024 Patient encounter procedure 07/24/2024 3:50 PM EDT Office Visit [facility] POD [address] [place] [address] Milton Fraire, DPM FACFAS [address] [facility] [place] [address] [facility] NMA POD Start: 07-04-2024 End: 07-04-2024 Patient encounter procedure 07/04/2024 3:30 PM EDT Office Visit [facility] [address] [place] [address] Giovani Hagen MD [address] [place] [address] [place] [address] [facility] Start: 07-03-2024 End: 07-03-2024 Patient encounter procedure 07/03/2024 2:20 PM EDT Office Visit [facility] POD [address] [place] [address] Milton Fraire, DPM FACFAS [address] [facility] [place] [address] [facility] NMA POD Start: 06-26-2024 End: 06-26-2024 Patient encounter procedure 06/26/2024 2:50 PM EST Office Visit [facility] POD [address] [place] [address] Milton Fraire, DPM FACFAS [address] [facility] [place] [address] [facility] NMA POD Start: 06-25-2024 End: 06-25-2024 Patient encounter procedure [facility] OB Comment on above: Arrived Start: 06-24-2024 End: 06-24-2024 Patient encounter procedure 06/24/2024 10:40 AM EST Office Visit [facility] POD [address] [place] [address] Milton Fraire, DPM FACFAS [address] [place] [address] [facility] NMA POD Start: 06-19-2024 End: 06-19-2024 Patient encounter procedure [facility] Comment on above: Arrived Start: 06-17-2024 End: 06-17-2024 Patient encounter procedure 06/17/2024 10:30 AM EST Office Visit Orthopaedics [address] [place] [address] [id number] Naren Verdugo PA-C [address] [place], [place] [phone] 1st post op Rt ankle arthroscopy/internal brace 06/04/24 Orthopaedics Comment on above: 1st post op Rt ankle arthroscopy/interna l brace 06/04/24 Start: 06-12-2024 End: 06-12-2024 ambulatory 06/12/2024 1:45 PM EST Results Only Cardiology [address] [place] [address] Dx: Syncope, unspecified syncope type [R55] Cardiology Comment on above: Dx: Syncope, unspecified syncope type [R 55] Start: 06-12-2024 End: 06-12-2024 Patient encounter procedure Cardiology Comment on above: Dx: Syncope, unspecified syncope type [R 55] Start: 06-10-2024 End: 06-10-2024 Patient encounter procedure 06/10/2024 9:40 AM EST Appointment [facility] [place] [address] [facility] [address] [place] [phone] Rosario Mcconnell I, MD [address] [facility] [address] [place] [address] [facility] Comment on above: CRIOH [facility] Start: 06-04-2024 End: 06-04-2024 Patient encounter procedure 06/04/2024 9:40 AM EST Office Visit [facility] POD [address] [place] [address] Milton Fraire, DPM FACFAS [address] [facility] [place] [address] [facility] NMA POD Start: 06-04-2024 End: 06-04-2024 Admission to same day surgery center 06/04/2024 7:30 AM EST - 06/04/2024 10:10 AM EST Surgery [facility] [address] [place] [address] Lydia Kelley [address] [place] [address] REPAIR ANKLE LIGAMENT SECONDARY DISRUPTED, COLLATERAL [facility] Surgery Comment on above: REPAIR ANKLE LIGAMENT SECONDARY DISRUPTE D, COLLATERAL Start: 06-04-2024 End: 06-04-2024 Repair secondary disrupted ligament ankle coltrl REPAIR ANKLE LIGAMENT SECONDARY DISRUPTED, COLLATERAL Right ankle instability 06/04/2024 7:30 AM EST ME OR Start: 06-04-2024 Subsequent hospital visit by physician 06/04/2024 7:30 AM EST Hospital Encounter [facility] [address] [place] [address] Lydia Kelley DO [address] [place] [address] 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] [facility] Comment on above: 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] Start: 05-31-2024 End: 05-31-2024 ambulatory 05/31/2024 1:15 PM EST [facility] [address] [address] [address] Lydia Kelley DO [address] [place] [address] 4 week f/u, right ankle Orthopaedics Comment on above: 4 week f/u, right ankle Start: 05-31-2024 End: 05-31-2024 Patient encounter procedure 05/31/2024 9:45 AM EST Office Visit Orthopaedics [address] [facility] [address] [place] [address] Lydia Kelley DO [address] [place] [address] 4 week f/u, right ankle Orthopaedics Comment on above: 4 week f/u, right ankle Start: 05-29-2024 End: 05-29-2024 Patient encounter procedure [facility] Comment on above: Arrived Start: 05-22-2024 End: 05-22-2024 Patient encounter procedure 05/22/2024 2:30 PM EST Appointment Ambulatory Surgery [address] [place] [address] [place] [address] [place] [id number] BRBPR (bright red blood per rectum) [K62.5] Ambulatory Surgery Comment on above: BRBPR (bright red blood per rectum) [K62 .5] Start: 05-15-2024 End: 05-15-2024 Patient encounter procedure [facility] Comment on above: Arrived Start: 05-08-2024 End: 05-08-2024 Patient encounter procedure 05/08/2024 3:10 PM EST Office Visit [facility] [address] [place] [address] Prateek Pedraza DPM [address] [address] [facility] Start: 05-05-2024 End: 05-05-2024 Anesthesia consultation 05/05/2024 11:59 PM EST Anesthesia Event Ambulatory Surgery [address] [place] [address] Sharla Bonds APRN.ELECTRICAL TEST ENGINEER [address] [place] [address] Ambulatory Surgery Start: 05-02-2024 End: 05-02-2024 ambulatory 05/02/2024 12:00 PM EST Procedure Gastroenterology [address] [place] [address] fibroscan Gastroenterology Comment on above: fibroscan Start: 05-01-2024 End: 05-01-2024 Patient encounter procedure 05/01/2024 4:30 PM EST Office Visit [facility] [address] [place] [address] Prateek Pedraza DPM [address] [address] [facility] Start: 04-30-2024 End: 04-30-2024 Patient encounter procedure [facility] Comment on above: Arrived Start: 04-26-2024 End: 04-26-2024 Patient encounter procedure 04/26/2024 3:05 PM EST Office Visit Gastroenterology [address] [place] [id number] Iliana Mercado PA-C [address] [place] [address] Elevated LFT, per Pt Gastroenterology Comment on above: Elevated LFT, per Pt Start: 04-26-2024 End: 07-26-2024 Alpha 1 antitrypsin [Mass/volume] in Serum or Plasma [facility] Comment on above: Expected: 04/26/2024, Expires: Start: 04-26-2024 End: 07-26-2024 [id number] [Mass/volume] in Serum or Plasma [facility] Work Phone: Comment on above: Expected: 04/26/2024, Expires: Start: 04-26-2024 End: 07-26-2024 DENY BY IFA WITH REFLEX [facility] Comment on above: Expected: 04/26/2024, Expires: Start: 04-26-2024 End: 07-26-2024 Ceruloplasmin [Mass/volume] in Serum or Plasma [facility] Comment on above: Expected: 04/26/2024, Expires: Start: 04-26-2024 End: 07-26-2024 Hepatitis A virus IgM Ab [Presence] in Serum [facility] Comment on above: Expected: 04/26/2024, Expires: Start: 04-26-2024 End: 07-26-2024 Hepatitis B virus core IgM Ab [Presence] in Serum [facility] Comment on above: Expected: 04/26/2024, Expires: Start: 04-26-2024 End: 07-26-2024 Hepatitis B virus surface Ag [Presence] in Serum [facility] Comment on above: Expected: 04/26/2024, Expires: Start: 04-26-2024 End: 07-26-2024 Hepatitis C virus Ab [Presence] in Serum [facility] Comment on above: Expected: 04/26/2024, Expires: Start: 04-26-2024 End: 07-26-2024 Mitochondria Ab [Presence] in Serum by Immunofluorescence [facility] Comment on above: Expected: 04/26/2024, Expires: Start: 04-26-2024 End: 07-26-2024 Smooth muscle Ab [Presence] in Serum [facility] Comment on above: Expected: 04/26/2024, Expires: Start: 04-03-2024 End: 04-03-2025 Hemoglobin A1c/Hemoglobin.total in Blood Hemoglobin A1c Lab Routine Elevated blood sugar Expected: 04/03/2024 (Approximate), Expires: 04/03/2025 [facility] Comment on above: Expected: 04/03/2024 (Approximate), Expi res: 04/03/2025 Start: 04-03-2024 End: 04-03-2025 MR Shoulder - left WO contrast MR shoulder left wo IV contrast Imaging Routine Acute pain of left shoulder Expected: 04/03/2024, Expires: 04/03/2025 [facility] Comment on above: Expected: 04/03/2024, Expires: Start: 04-03-2024 End: 04-03-2025 Potassium [Moles/volume] in Serum or Plasma Potassium Lab Routine Hypokalemia Expected: 04/03/2024 (Approximate), Expires: 04/03/2025 [facility] Work Phone: Comment on above: Expected: 04/03/2024 (Approximate), Expi res: 04/03/2025 Start: 04-01-2024 End: 04-01-2024 Patient encounter procedure 04/01/2024 8:30 AM EST Office Visit [facility] [address] [place] [address] Giovani Hagen MD [address] [place] [address] [facility] Start: 03-27-2024 End: 03-27-2024 ambulatory 03/27/2024 4:00 PM EST Treatment [facility] [address] [place] [address] Zhen Burgess, PT [address] [place] [address] [facility] Start: 03-25-2024 End: 03-25-2024 ambulatory 03/25/2024 4:00 PM EST Treatment [facility] [address] [facility] [address] [place] [address] Arun Hernadez PTA [facility] Start: 03-20-2024 End: 03-20-2024 Patient encounter procedure 03/20/2024 4:00 PM EST Office Visit [facility] [address] [place] [address] Darwin Starr, DO [address] [facility] [address] [place] [address] [facility] Start: 03-19-2024 End: 03-19-2024 ambulatory 03/19/2024 4:00 PM EST Treatment [facility] [address] [facility] [address] [place] [address] Anitra Ricci PTA [facility] Start: 03-13-2024 End: 03-13-2024 ambulatory 03/13/2024 4:30 PM EST Treatment [facility] [address] [facility] [address] [place] [address] Zhen Burgess, PT [address] [facility] [address] [place] [address] [facility] Start: 03-11-2024 End: 03-11-2024 ambulatory [facility] Comment on above: Arrived Start: 03-06-2024 End: 03-06-2024 ambulatory [facility] Start: 03-04-2024 End: 03-04-2024 ambulatory 03/04/2024 9:00 AM EST Treatment [facility] [address] [facility] [address] [place] [address] Arun Hernadez PTA [facility] Start: 02-29-2024 End: 02-29-2024 ambulatory [facility] Comment on above: Arrived Start: 02-27-2024 End: 02-27-2024 ambulatory [facility] Comment on above: Arrived Start: 02-21-2024 End: 02-21-2024 ambulatory 02/21/2024 4:30 PM EDT Treatment [facility] [address] [facility] [address] [place] [address] Anitra Ricci PTA [facility] Start: 02-14-2024 End: 02-14-2024 ambulatory [facility] Start: 02-13-2024 End: 02-13-2024 Patient encounter procedure Cardiology Comment on above: Dx: Syncope, unspecified syncope type [R 55] Start: 02-13-2024 End: 02-13-2024 ambulatory 02/13/2024 2:00 PM EDT Results Only Cardiology [address] [id number] Dx: Syncope, unspecified syncope type [R55] Cardiology [...] Office Visit [facility] [address] [place] [address] Darwin Starr DO [address] [place] [address] [facility] Start: 01-09-2024 End: 01-09-2024 Patient encounter procedure 01/09/2024 4:00 PM EDT Office Visit [facility] [address] [facility] [address] [place] [address] Giovani Hagen MD [address] [facility] [address] [place] [address] [facility] Start: 01-09-2024 End: 01-08-2025 [...] Start: 12-24-2023 Covid-19 Vaccine () Covid-19 Vaccine ( season) [facility] Start: 12-24-2023 Covid-19 Vaccine () Covid-19 Vaccine () [facility] Start: 12-24-2023 Influenza vaccination [facility] Start: 12-19-2023 End: 12-19-2023 ambulatory 12/19/2023 2:15 PM EDT Results Only Cardiology [address] [place] [address] Exertional Syncope. Referring: Dr. Shilo Dillon Cardiology Comment on above: Exertional Syncope. Referring: Dr. Shilo Dillon Start: 12-19-2023 End: 12-19-2023 Patient encounter procedure Cardiology Comment on above: Exertional Syncope. Referring: Dr. Shilo Dillon Start: 04-24-2023 Behavioral Health Screening Behavioral Health Screening [facility] Start: 12-23-2022 Covid-19 Vaccine () Covid-19 Vaccine () [facility] Start: 12-23-2022 Influenza vaccination [facility] Start: 05-13-2022 [facility] Start: 04-24-2022 DEPRESSION ASSESSMENT DEPRESSION ASSESSMENT [facility] Start: 12-28-2021 COVID-19 VACCINE (4 - Booster for Pfizer series) COVID-19 VACCINE (4 - Booster for Pfizer series) [facility] Start: 12-28-2021 COVID-19 VACCINE (4 - Pfizer series) COVID-19 VACCINE (4 - Pfizer series) [facility] Start: 12-23-2021 Influenza vaccination INFLUENZA (#1) [facility] Start: 02-06-2020 Urine microalbumin profile DTaP,Tdap,Td Vaccine (6 - Td or Tdap) [facility] Start: 2018 HPV TESTING HPV TESTING [facility] Start: 2009 PAP TESTING PAP TESTING [facility] Start: 2009 Screening for malignant neoplasm of cervix Cervical Cancer Screening [facility] Start: 09-29-2007 Urine microalbumin profile DTAP,TDAP,TD (1 - Tdap) [facility] Start: 11-30-2006 HPV Vaccine (2 - 3-dose series) HPV Vaccine (2 - 3-dose series) [facility] Start: 2006 Anxiety Screening Anxiety Screening [facility] Start: 2006 Depression Screening Depression Screening [facility] Start: 2006 HEPATITIS C SCREENING HEPATITIS C SCREENING [facility] Start: 2006 Hepatitis C screening Hepatitis C Screening [facility] Start: 2006 HIV SCREENING HIV SCREENING [facility] Start: 2006 HIV screening HIV Screening [facility] Start: 1988 HEPATITIS B (1 of 3 - 3-dose series) HEPATITIS B (1 of 3 - 3-dose series) [facility] 25-hydroxyvitamin D3 [Mass/volume] in Serum or Plasma Vitamin D 25 hydroxy Total Lab Routine Weight gain Ordered: 12/12/2024 [facility] Comment on above: Ordered: 12/12/2024 Actin smooth muscle IgG Ab [Units/volume] in Serum [facility] End: 10-09-2025 ADULT UTAH ANORECTAL MANOMETRY ADULT UTAH ANORECTAL MANOMETRY Endoscopy Routine Pelvic floor dysfunction Chronic constipation 1 Occurrences starting 10/09/2024 until 10/09/2025 [facility] Work Phone: Comment on above: 1 Occurrences starting 10/09/2024 until 10/09/2025 ADULT UTAH ANORECTAL MANOMETRY [facility] ANORECTAL MANOMETRY Endoscopy Routine Pelvic floor dysfunction Chronic constipation 10/15/2024 [facility] Work Phone: Alpha 1 antitrypsin [Mass/volume] in Serum or Plasma [facility] Alpha 1 antitrypsin phenotyping [Identifier] in Serum or Plasma by Immunofixation [facility] CBC W Auto Different ial panel - Blood CBC and differential Lab Routine Weight gain History of alcohol dependence (HCC) Other fatigue Ordered: 12/12/2024 [facility] Comment on above: Ordered: 12/12/2024 Ceruloplasmin [Mass/volume] in Serum or Plasma [facility] CHLAMYDIA TRACHOMATI S (GENITO/STI) CHLAMYDIA TRACHOMATIS (GENITO/STI) Lab Routine Pain in female genitalia on intercourse Cystitis Ordered: 06/25/2024 [facility] Comment on above: Ordered: 06/25/2024 End: 05-23-2024 CLOSTRIDIUM DIFFICILE TOXIN BY EIA [facility] Comment on above: ONCE for 1 Occurrences starting 05/23/19 until 05/23/2024 Cobalamin (Vitamin B 12) [Mass/volume] in Serum or Plasma Vitamin B12 Lab Routine Elevated liver enzymes Weight gain History of alcohol dependence (HCC) Other fatigue Ordered: 12/12/2024 [facility] Comment on above: Ordered: 12/12/2024 Comprehensive metabo lic 2000 panel - Serum or Plasma Comprehensive metabolic panel Lab Routine Elevated liver enzymes Hypokalemia Weight gain History of alcohol dependence (HCC) Impaired fasting glucose Ordered: 12/12/2024 [facility] Comment on above: Ordered: 12/12/2024 End: 06-26-2023 Ct abdomen & pelvis w/o contrast material CT ABD/PEL WO IVCON Radiology Routine Bilious vomiting with nausea Right sided abdominal pain Nausea 1 Occurrences starting 05/27/2022 until 06/26/2023 [facility] Work Phone: Comment on above: 1 Occurrences starting 05/27/2022 until 06/26/2023 End: 05-14-2025 CT Guidance for core needle biopsy of Liver LIVER BIOPSY NEEDLE Endoscopy Routine ENGLISH (nonalcoholic steatohepatitis) 1 Occurrences starting 05/14/2024 until 05/14/2025 [facility] Work Phone: Comment on above: 1 Occurrences starting 05/14/2024 until 05/14/2025 Cytology Cervical or vaginal smear or scraping study Pap Smear Pathology and Cytology Routine Well woman exam with routine gynecological exam Ordered: 03/20/2024 [facility] Work Phone: Comment on above: Ordered: 03/20/2024 End: 11-01-2024 ECG COMPLETE ECG COMPLETE ECG Routine Gastroparesis 1 Occurrences starting 11/02/2023 until 11/01/2024 [facility] Work Phone: Comment on above: 1 Occurrences starting 11/02/2023 until 11/01/2024 End: 12-18-2024 ECG COMPLETE ECG COMPLETE ECG Routine Syncope and collapse 1 Occurrences starting 12/19/2023 until 12/18/2024 [facility] Work Phone: Comment on above: 1 Occurrences starting 12/19/2023 until 12/18/2024 End: 05-27-2023 EGD DIAGNOSTIC EGD DIAGNOSTIC Endoscopy Routine Bilious vomiting with nausea Right sided abdominal pain 1 Occurrences starting 05/27/2022 until 05/27/2023 [facility] Work Phone: Comment on above: 1 Occurrences starting 05/27/2022 until 05/27/2023 Electrogastrography dx transcutaneous EGG (ELECTROGASTROGRAPHY) Procedures Routine Gastroparesis Ordered: 09/14/2022 [facility] Work Phone: Comment on above: Ordered: 09/14/2022 ENTERIC BACTERIAL PA BELEM BY PCR [facility] Work Phone: Comment on above: Release Upon Ordering for 1 Occurrences starting 05/22/2024 End: 04-26-2025 Flexible sigmoidoscopy study COLONOSCOPY DIAGNOSTIC Endoscopy Routine BRBPR (bright red blood per rectum) 1 Occurrences starting 04/26/2024 until 04/26/2025 [facility] Comment on above: 1 Occurrences starting 04/26/2024 until 04/26/2025 Folate [Mass/volume] in Serum or Plasma Folate Lab Routine Elevated liver enzymes Weight gain History of alcohol dependence (HCC) Other fatigue Ordered: 12/12/2024 [facility] Comment on above: Ordered: 12/12/2024 Hemoglobin A1c/Hemoglobin.total in Blood Hemoglobin A1c Lab Routine Weight gain Impaired fasting glucose Ordered: 12/12/2024 [facility] Comment on above: Ordered: 12/12/2024 Hepatitis A virus Ab [Presence] in Serum by Immunoassay [facility] HFE gene mutations f ound [Identifier] in Blood or Tissue by Molecular genetics method Nominal [facility] Homogenous nuclear A b pattern [Titer] in Serum [facility] Human papilloma viru s DNA [Presence] in Unspecified specimen by Probe with amplification HPV DNA probe, amplified Microbiology Routine Well woman exam with routine gynecological exam Ordered: 03/20/2024 [facility] Comment on above: Ordered: 03/20/2024 IgG [Mass/volume] in Serum or Plasma [facility] Iron + transferrin + TIBC Iron + transferrin + TIBC Lab Routine Elevated liver enzymes Weight gain Other fatigue Ordered: 12/12/2024 [facility] Comment on above: Ordered: 12/12/2024 Lipoprotein a [Moles/volume] in Serum or Plasma [facility] Liver ultrasound attenuation by transient elastography DDI VIBRATION CONTROLLED TRANSIENT ELASTOGRAPHY (VCTE) Endoscopy Routine Elevated LFTs Ordered: 04/26/2024 [facility] Comment on above: Ordered: 04/26/2024 Mitochondria M2 IgG Ab [Units/volume] in Serum [facility] Neisseria gonorrhoea e DNA [Presence] in Unspecified specimen by SHEILA with probe detection Neisseria gonorrhea DNA probe, direct Lab Routine Pain in female genitalia on intercourse Cystitis Ordered: 06/25/2024 [facility] Comment on above: Ordered: 06/25/2024 Nuclear Ab [Titer] i n Serum [facility] OUTSIDE VENDOR CARDI AC OUTPATIENT EXTENDED RHYTHM RECORDING (WITHOUT TELEMETRY) OUTSIDE VENDOR CARDIAC OUTPATIENT EXTENDED RHYTHM RECORDING (WITHOUT TELEMETRY) Holter Routine Syncope, unspecified syncope type Ordered: 12/19/2023 [facility] Comment on above: Ordered: 12/19/2023 Patient Education Depression in adults - Discharge instructions [facility] Instructions Know your Meds [facility] Work Phone: Patient referral [facility] Work Phone: End: 12-18-2024 STRESS ECHO TREADMILL STRESS ECHO TREADMILL Cardiology Routine Syncope, unspecified syncope type 1 Occurrences starting 12/19/2023 until 12/18/2024 [facility] Work Phone: Comment on above: 1 Occurrences starting 12/19/2023 until 12/18/2024 SURESWAB(R) ADVANCED VAGINITIS PLUS, TMA SURESWAB(R) ADVANCED VAGINITIS PLUS, TMA Pathology and Cytology Routine Pain in female genitalia on intercourse Cystitis Ordered: 06/25/2024 [facility] Work Phone: Comment on above: Ordered: 06/25/2024 SURGICAL PATHOLOGY [facility] Comment on above: Release Upon Ordering for 1 Occurrences starting 05/22/2024, 1 completed TSH W/REFLEX TO FT4 TSH W/REFLEX TO FT4 Lab Routine Weight gain History of alcohol dependence (HCC) Other fatigue Ordered: 12/12/2024 [facility] Comment on above: Ordered: 12/12/2024 End: 07-14-2023 Us abdominal real time w/image limited US ABD RT UPPER QUADRANT Radiology Routine Liver lesion 1 Occurrences starting 06/14/2022 until 07/14/2023 [facility] Work Phone: Comment on above: 1 Occurrences starting 06/14/2022 until 07/14/2023 Vitamin B1 Vitamin B1 Lab R outine Elevated liver enzymes Weight gain History of alcohol dependence (HCC) Ordered: 12/12/2024 [facility] Comment on above: Ordered: 12/12/2024 Vitamin B6 Vitamin B6 Lab R outine Elevated liver enzymes Weight gain History of alcohol dependence (HCC) Ordered: 12/12/2024 [facility] Work Phone: Comment on above: Ordered: 12/12/2024 XR Abdomen Supine an d Upright XR ABDOMEN 2V ROUTINE SUPINE W UPRIGHT/DECUB/CTL Radiology Routine Chronic idiopathic constipation 07/10/2024 11:30 AM EDT [facility] Work Phone: End: 11-08-2025 XR Abdomen Supine and Upright XR ABDOMEN 1V SUPINE Radiology Routine Pelvic floor dysfunction Chronic constipation 3x per week for 3 Occurrences starting 10/09/2024 until 11/08/2025 [facility] Comment on above: 3x per week for 3 Occurrences starting 0 10/09/2024 until 11/08/2025 [facility] Immunizations Immunization Date Immunization Notes Care Provider Fa [facility] 09-06-2024 tetanus toxoid, redu rolanda diphtheria toxoid, and acellular pertussis vaccine, adsorbed Giovani Hagen MD Work Phone: [facility] 11-02-2021 SARS-CoV-2 mRNA (xftybafuynt-maeb-kdbbs se) vaccine Madhuri MISHRA [facility] 04-29-2021 SARS-CoV-2 (COVID-19 ) mRNA BNT-162b2 vax Madhuri MISHRA [facility] 03-03-2021 SARS-CoV-2 (COVID-19 ) mRNA BNT-162b2 vax Madhuri MISHRA [facility] Comment on above: Result Comment: 2022: TPVAL 02-09-2021 influenza virus vaccine, unspecified formulation Madhuri MISHRA [facility] 02-09-2021 influenza, injectabl e, quadrivalent, preservative free Zhen Blackston PT Work Phone: [facility] 03-16-2020 influenza virus vaccine, unspecified formulation Madhuri MISHRA [facility] 03-16-2020 Influenza, injectabl e, Madin Scandia Canine Kidney, preservative free, quadrivalent Zhen Blackston PT Work Phone: [facility] 01-08-2018 influenza virus vaccine, unspecified formulation Madhuri MISHRA [facility] 01-08-2018 influenza, injectabl e, quadrivalent, contains preservative Zhen Blackston PT Work Phone: [facility] 01-08-2018 influenza, injectabl e, quadrivalent, preservative free Zhen Blackston PT Work Phone: [facility] 02-01-2017 influenza virus vaccine, unspecified formulation Madhuri MISHRA [facility] 02-01-2017 Influenza, injectabl e, Madin Scandia Canine Kidney, preservative free, quadrivalent Zhen Blackston PT Work Phone: [facility] 03-25-2016 influenza virus vaccine, unspecified formulation Madhuri MISHRA [facility] 03-25-2016 influenza, injectabl e, quadrivalent, preservative free Zhen Blackston PT Work Phone: [facility] 02-05-2010 tetanus toxoid, redu rolanda diphtheria toxoid, and acellular pertussis vaccine, adsorbed Madhuri MISHRA [facility] 01-05-2007 hepatitis B vaccine, pediatric or pediatric/adolescent dosage Madhuri MISHRA [facility] 11-02-2006 hepatitis B vaccine, pediatric or pediatric/adolescent dosage Madhuri MISHRA [facility] 11-02-2006 HPV, unspecified formulation Madhuri MISHRA [facility] 11-02-2006 human papilloma viru s vaccine, quadrivalent Zhenben Burgess PT Work Phone: [facility] 11-02-2006 meningococcal ACWY vaccine, unspecified formulation Madhuricecille MISHRA [facility] 11-02-2006 meningococcal polysaccharide (groups A, C, Y and W-135) diphtheria toxoid conjugate vaccine (MCV4P) Zhen Burgess PT Work Phone: [facility] 02-20-1998 hepatitis B vaccine, pediatric or pediatric/adolescent dosage Madhuri MISHRA [facility] 12-28-1993 diphtheria, tetanus toxoids and pertussis vaccine Zhen Burgess PT Work Phone: [facility] 12-07-1992 diphtheria, tetanus toxoids and pertussis vaccine Zhen Burgess PT Work Phone: [facility] 12-07-1992 measles, mumps and rubella virus vaccine Madhuri MISHRA [facility] 12-07-1992 trivalent poliovirus vaccine, live, oral Zhen Burgess PT Work Phone: [facility] 06-09-1992 diphtheria, tetanus toxoids and pertussis vaccine Zhen Burgess PT Work Phone: [facility] 06-09-1992 measles, mumps and rubella virus vaccine Madhuri MISHRA [facility] 06-09-1992 trivalent poliovirus vaccine, live, oral Zhen Burgess PT Work Phone: [facility] 10-31-1990 varicella virus vaccine Patr homer MISHRA [facility] 06-20-1990 diphtheria, tetanus toxoids and pertussis vaccine Zhen Burgess PT Work Phone: [facility] 05-21-1990 trivalent poliovirus vaccine, live, oral Zhen Burgess PT Work Phone: [facility] 01-10-1989 trivalent poliovirus vaccine, live, oral Zhen Burgess PT Work Phone: [facility] NEGATED: Highlighted row has not occurred!05-01-2019 influenza virus vaccine, live, attenuated, for intranasal use Madhuri MISHRA [facility] NEGATED: Highlighted row has not occurred!04-03-2019 influenza virus vaccine, live, attenuated, for intranasal use Madhuri MISHRA [facility] Payers Date Payer Category Payer Self-pay [id number] 2020 Private Health Insurance [id number] 2020 Unknown [id number] 1988 Unknown [id number] 1988 Unknown [id number] 93 1988 Unknown [id number] 93 1988 Unknown [id number] 93 1988 Unknown [id number] 93 1988 Unknown [id number] 93 1988 Unknown [id number] 2.16.840.1.500663.3.579.2.5 93 1988 Unknown [id number] 2.16.840.1.066804.3.579.2.5 93 1988 Unknown [id number] 2.16.840.1.219977.3.579.2.5 93 1988 Unknown [id number] 2.16.840.1.283793.3.579.2.5 93 1988 Unknown [id number] 2.16.840.1.511223.3.579.2.5 93 1988 Unknown [id number] 2.16.840.1.837774.3.579.2.5 93 1988 Unknown [id number] 2.16.840.1.487295.3.579.2.5 93 1988 Unknown [id number] 2.16.840.1.445190.3.579.2.5 93 1988 Unknown [id number] 2.16.840.1.429235.3.579.2.1 77 1988 Unknown [id number] 2.16.840.1.737026.3.579.2.7 27 1988 Unknown [id number] 2.16.840.1.454665.3.579.2.7 27 1988 Unknown [id number] 2.16.840.1.958846.3.579.2.1 259 1988 Unknown [id number] 2.16.840.1.091151.3.579.2.1 259 1988 Unknown [id number] 2.16.840.1.783282.3.579.2.1 259 1988 Unknown [id number] 2.16.840.1.004257.3.579.2.1 259 1988 Unknown [id number] 2.16.840.1.114621.3.579.2.1 259 1988 Unknown [id number] 2.16840.1.373893.3.579.2.1 259 1988 Unknown [id number] 2.16840.1.567897.3.579.2.1 259 1988 Unknown [id number] 2.16840.1.649082.3.579.2.1 259 1988 Unknown [id number] 2.16840.1.740746.3.579.2.1 259 1988 Unknown [id number] 2.16840.1.358818.3.579.2.1 259 1988 Unknown [id number] 2.840.1.208707.3.579.2.1 259 1988 Unknown [id number] 2.16840.1.874631.3.579.2.1 259 1988 Unknown [id number] 2.16840.1.734010.3.579.2.1 259 1988 Unknown [id number] 2.16840.1.662311.3.579.2.1 259 1988 Unknown [id number] 2.16840.1.366200.3.579.2.1 259 1988 Unknown [id number] 2.16.840.1.632369.3.579.2.1 259 1988 Unknown [id number] 2.16.840.1.678655.3.579.2.1 259 1988 Unknown [id number] 2.16.840.1.071653.3.579.2.1 259 1988 Unknown [id number] 2.16.840.1.986894.3.579.2.1 259 1988 Unknown [id number] 2.16.840.1.912766.3.579.2.1 259 1988 Unknown [id number] 2.16840.1.455086.3.579.2.1 259 1988 Unknown [id number] 2.16840.1.597820.3.579.2.1 259 1988 Unknown [id number] 2.840.1.629101.3.579.2.1 259 1988 Unknown [id number] 2.16840.1.290793.3.579.2.1 259 1988 Unknown [id number] 2.840.1.469934.3.579.2.1 259 1988 Unknown [id number] 2.16840.1.419789.3.579.2.1 259 1988 Unknown [id number] 2.16840.1.704333.3.579.2.1 259 1988 Unknown [id number] 2.16840.1.895087.3.579.2.1 259 1988 Unknown [id number] 2.16840.1.911999.3.579.2.1 259 1988 Unknown [id number] 2.16840.1.471468.3.579.2.1 259 1988 Unknown [id number] 2.16840.1.640270.3.579.2.1 259 1988 Unknown [id number] 2.16.840.1.910689.3.579.2.1 259 1988 Unknown [id number] 2.16.840.1.111477.3.579.2.1 259 1988 Unknown [id number] 2.16.840.1.041235.3.579.2.1 259 1988 Unknown [id number] 2.16.840.1.976776.3.579.2.1 259 1988 Unknown [id number] 2.16.840.1.116134.3.579.2.1 259 1988 Unknown [id number] 2.16.840.1.964821.3.579.2.1 259 1988 Unknown [id number] 2.16.840.1.877204.3.579.2.1 259 1988 Unknown [id number] 2.16.840.1.304005.3.579.2.1 259 1988 Unknown [id number] 2.16.840.1.125729.3.579.2.1 259 1988 Unknown [id number] 2.16.840.1.742060.3.579.2.1 259 1988 Unknown [id number] 2.16.840.1.831664.3.579.2.1 259 1988 Unknown [id number] 2.16.840.1.701174.3.579.2.1 259 1988 Unknown [id number] 2.16.840.1.628334.3.579.2.1 259 1988 Unknown [id number] 2.16.840.1.080562.3.579.2.1 259 1959 Unknown [id number] Unknown 100 [facility] [id number] Unknown [id number] 2.16.840.1.367744.3.579.2.5 31 Social History Date Type Detail Facility Tobacco smoking stat us NHIS Unknown if ever smoked [facility] Work Phone: Start: 1990 Sex Assigned At Female [facility] Start: 03-28-2019 End: 05-27-2022 Tobacco smoking status NHIS Never smoked tobacco [facility] Start: 05-27-2022 End: 10-10-2024 Tobacco use and exposure Smokeless tobacco non-user [facility] Start: 05-27-2022 End: 12-12-2024 Alcohol intake Current drinker of alcohol (finding) [facility] Start: 03-28-2019 Alcohol Comment socially [facility] Start: 1990 Sex Assigned At Not on file [facility] Start: 11-02-2022 End: 05-09-2024 Sex Assigned At [facility] Start: 06-29-2022 End: 10-10-2024 Tobacco smoking status Ex-smoker (finding) [facility] Tobacco smoking status Never [facility] Start: 11-02-2022 End: 05-09-2024 History of Social function [facility] Start: 06-08-2021 Gender identity Identifies as female gender (finding) [facility] Start: 11-16-2021 End: 11-26-2021 Exposure to SARS-CoV-2 (event) Not sure [facility] Start: 08-17-2024 History of tobacco use Current smoker [facility] Within the last year , have you been afraid of your partner or ex-partner? No [facility] Do you belong to any clubs or organizations such as nondenominational groups, unions, fraternal or athletic groups, or [...] time - these days [OSQ] Very much [facility] (I/We) worried wheth er (my/our) food would run out before (I/we) got money to buy more. Never true [facility] How often do you hav e 6 or more drinks on 1 occasion? Less than monthly [facility] Start: 08-19-2024 Sex Female (finding) [facility] History of tobacco use Cigarette Smoker [facility] Goals Date Patient Goal Desired Activity /State Personal health goal Personal health goal Functional Status Date Assessment Result Facility 10-08-2024 Patient Health Quest ionnaire 2 item (PHQ-2) [Reported] [facility] 10-08-2024 PHQ-9 quick depressi on assessment panel [Reported.PHQ] [facility] 09-25-2024 Patient Health Quest ionnaire 2 item (PHQ-2) [Reported] [facility] 09-25-2024 PHQ-9 quick depressi on assessment panel [Reported.PHQ] [facility] 09-17-2024 Patient Health Quest ionnaire 2 item (PHQ-2) [Reported] [facility] 09-02-2024 Patient Health Quest ionnaire 2 item (PHQ-2) [Reported] [facility] 08-19-2024 Functional status Patient at Baseline [facility] Work Phone: 12-28-2023 Functional Status N/A [facility] 06-30-2022 Functional Status N/A [facility] Mental Status Date Assessment Result Facility 08-19-2024 Cognitive function Cognitive Sta tus Patient at Baseline [facility] Work Phone: Clinical Notes 05-03-2022 to 12-12-2024 VINH Roque - 12/12/2024 10:30 AM EDTTelephone Encounter - VINH Roque - 10/30/2024 3:35 PM EDTTelephone Encounter - VINH Roque - 10/30/2024 3:35 PM EDTPatient Instructions Note Date & Type Note Facility 12-12-2024 History of Present illness Narrative Images from the original note were not included. HPI Med Refill Additional comments: Doxepin, Ativan, Adderall both 10 and 30 mg Last edited by Marie Keller LPN on 12/12/2024 10:38 AM. Subjective Patient ID: Orion Harper is a 34 y.o. female who presents for [facility] ER follow up. Flowsheet Row Patient Outreach from 12/10/[address] [facility] with Gifty Mireles LPN Hospital Information ED, Hospital or [facility] Facility Discharge? ED Patient has been contacted within 2 days of being seen in the ED Yes Diagnosis Gastritis Discharge Date 12/09/24 Discharged To: Home Setting Discharge Hospital [facility] Engagement Call Start Time 1444 Admission Date 12/09/24 Medications Discharge medications reviewed and reconciled from hospital? No [pt did not reconcile with editorial writer. Was sent home with no new [...] 1348 States was in Mental Rehab in [place] recently. Saw Psychiatry on Monday, Dr. Maria Esther Amos, [facility]. Seeing Dr. Jatin Cabrera for her back, next appointment is in December. Has to reschedule that appointment she thinks due to having to be in [place] that day. Has tried Flexeril, prescription strength [...] tablet Take 20 mg by mouth Daily Gkrogxumyiq-Bxnzzxpha-Owzcwa (Trelegy Ellipta) 100-62.5-25 MCG/ACT aerosol powder INHALE [...] BY MOUTH AT BEDTIME 30 capsule 6 [DISCONTINUED] clonazePAM (KlonoPIN) 0.5 MG tablet Take [...] partial hysterectomy 05/2016 SpO2 98% BMI 36.62 kg/m OB Status Hysterectomy Smoking Status Former BSA 1.99 m Review of Systems Constitutional: Positive for unexpected [...] recent imaging. Pt can follow up with [facility] as needed. Hypokalemia - Comprehensive metabolic panel [...] provider will need to speak with Dr. Hagen prior to restarting the Adderall for her. Her Psychiatrist is unwilling to prescribe it for her. States she will need it because she is going back to work. History of alcohol dependence (HCC) [...] including Brain MRI and EMG. Encouraged her to follow up with them for the results and further discussion of her symptoms/pain. Did advise that certain vitamin deficiencies can cause neuropathic type symptoms, so will obtain labs for further evaluation at this time. The patient was seen today in follow up of recent hospital ER visit. All available hospital records/labs/diagnostics were reviewed and discussed with the patient. ER discharge meds were reviewed. Any changes to plan are as noted. Follow up for Appointment As Scheduled. documented in this encounter [facility] 10-30-2024 Telephone encounter Note Refill declined. [facility] 10-30-2024 Miscellaneous Notes Refill declined. OV 10/08/24 Looks to be discontinued on 06/19/24 documented in this encounter [facility] 10-30-2024 Telephone encounter Note OV 10/08/24 Looks to be discontinued on 06/19/24 [facility] 10-23-2024 History of Present illness Narrative Radiology [...] PATIENT PRESENTS WITH AN IMPLANTABLE OR ATTACHED HARVEST WORKER: No RADIOLOGY DEPARTMENT: General X-ray: Exam(s) Completed: Abdomen X-Ray: Abdomen PERIPHERAL IV DATA: Not applicable SIGNED BY: LISBETH Park) October 23, 2024 2:10 PM documented in this encounter [facility] 10-23-2024 Note HNO ID: [id number] Author: ANNITA CAMP RT(Aroldo) Service: ? Author [...] PATIENT PRESENTS WITH AN IMPLANTABLE OR ATTACHED HARVEST WORKER: No RADIOLOGY DEPARTMENT: General X-ray: Exam(s) Completed: Abdomen X-Ray: Abdomen PERIPHERAL IV DATA: Not applicable SIGNED BY: RT Xavier(R) October 23, 2024 2:10 PM [facility] 10-15-2024 Note HNO ID: [id number] Author: MARIO HARPER APRN.CNP Service: ? Author Type: Nurse Practitioner Type: Progress Notes Filed: 10/15/2024 11:06 Note Text: SENSITIVE EXAMINATION CONSENT: The sensitive examination was discussed with the Patient or Patient's Authorized Livestock Breeder. As applicable, any other physician, advance practice provider, medical student, or other health professional student that will be observing or involved in the sensitive examination for educational or training purposes was discussed with the Patient or Authorized Livestock Breeder. The Patient or Authorized Livestock Breeder has agreed to proceed with the sensitive examination. [facility] 10-15-2024 History of Present illness Narrative SENSITIVE EXAMINATION CONSENT: The sensitive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 ([facility]) 09/23/2022 Skin pain 09/23/2022 Thyroid enlargement ([facility]) 09/23/2022 Atherosclerosis of aorta ([facility]) 06/16/2020 Atherosclerosis of both carotid arteries 11/16/2020 Atherosclerosis of coronary artery without angina pectoris ([facility]) 05/18/2021 Gastroesophageal reflux disease without esophagitis 07/09/2019 Gastroparesis 11/02/2022 Non-refractory idiopathic generalized epilepsy ([facility]) 11/22/2019 Osteoarthritis of knee 06/14/2019 Hypercholesterolemia ([facility]) 07/01/2021 Recurrent UTI 12/12/2022 Vitamin D deficiency 05/16/2019 Dizziness 12/13/2022 Acute nonintractable headache 12/13/2022 History of COVID-19 02/06/2023 Overweight 02/06/2023 Acute biliary pancreatitis without infection or necrosis 03/21/2023 Calculus of gallbladder without cholecystitis without obstruction 03/23/2023 Cholecystitis 04/18/2023 Encounter for postoperative care 04/18/2023 History of acute pancreatitis 04/18/2023 History of cholecystectomy 04/18/2023 Cough 04/18/2023 Anaphylactic syndrome 04/18/2023 PTSD (post-traumatic stress disorder) ([facility]) 02/24/2015 Tinea 10/03/2023 Weight gain 10/03/2023 Glucose intolerance 10/03/2023 Dyshidrosis 10/03/2023 Encounter for well adult exam without abnormal findings 12/04/2023 Cervical radiculopathy 12/26/2023 Obesity (BMI 35.0-39.9 without comorbidity) 02/06/2024 Localized edema 02/06/2024 Injury of right ankle 02/06/2024 Sprain of anterior talofibular ligament of right ankle 04/01/2024 Pain and swelling of left shoulder 04/03/2024 Asthmatic bronchitis with acute exacerbation ([facility]) 04/16/2024 Snoring 04/16/2024 Resolved Ambulatory [...] having a diagnostic laparoscopy performed at [facility] with Dr. Starr.results was reviewed with the patient and all restrictions have been lifted. Follow Up: Patient is to return to the office for annual exam unless needed otherwise. Documented by VINH Sibley on behalf of: VINH Sibley documented in this encounterFreeman Heart InstituteOytcojwtct12-00-9853 Telephone encounter Note* Telephone Encounter - Benito [...] and precautions to follow Carol Winn MD [facility]01-30-2025 Miscellaneous Notes* Telephone Encounter - Benito [...] follow Carol Winn MD documented in this encounterOhio State East Hospital01-29-2025 History and physical note * Carol [...] DATE: May 22, 2024 TIME: 1:39 PM [facility] Work Phone: 1(683) 981-414401-29-2025 History and physical note* Carol Winn MD [...] 2024 TIME: 1:39 PM documented in this encounterOhio State East Hospital01-29-2025 Nurse Note* Lindsey Buckley RN - [...] Lindsey Buckley RN In Department: AMBULATORY SURGERY [facility]01-29-2025 Nurse Note* Lindsey Buckley RN - [...] In Department: AMBULATORY SURGERY documented in this encounterOhio State East Hospital01-22-2025 Telephone encounter Note * Telephone Encounter - Rose Jarvis - 05/15/2024 3:56 PM EST Appts cxl, surgery notified to cxl. [facility]01-22-2025 Miscellaneous Notes* Telephone Encounter - Rose [...] time. Lydia Kelley DO documented in this encounterOhio State East Hospital01-22-2025 History of Present illness Narrative* Milton [...] attenuation of the anterior talof[place] [address] Magnetic Resonance Report Signed Patient: ORION HARPER MR#: [id number] : 1990 Acct:[id number] Age/Sex: 33 / F ADM Date: 03/14/24 Loc: MRI Attending Dr: Laurie Trujillo M.D. Ordering Physician: Laurie Trujillo M.D. Date of Service: 03/14/24 Procedure(s): MR ankle RT wo con Accession Number(s): [id number] cc: GIOVANI HAGEN ; Laurie Trujillo M.D. [facility] [place] [address] Patient Name: ORION HARPER MRN: [facility]:[id number] date: 1990 Sex: F Assigned Patient Location: MRI Current Patient Location: Accession/Order Number: [id number] Exam Date: 03/14/2024 15:04 Report Date: 03/17/2024 [...] THE MORNING, Disp: 30 tablet, Rfl: 2 Kdwsasphqrs-Prpkjybtf-Yfbbpr 100-62.5-25 MCG/ACT aerosol powder , Inhale 1 [...] are palpable bilateral, no edema noted Neuro: [place] 5.07 monofilament intact, vibratory sensation intact Derm: [...] above-stated procedure. JASON Conti documented in this encounterFreeman Heart InstituteHhpvwrbpji35-27-8258 Telephone encounter Note* Telephone Encounter - VINH Roque - 05/10/2024 12:10 PM EST Pt was seen. OARRS reviewed, Rx sent into patient's pharmacy. [facility] [id number] Miscellaneous Notes* Telephone Encounter - VINH Roque - 05/10/2024 12:10 PM EST Pt was seen. OARRS reviewed, Rx sent into patient's pharmacy. * Telephone Encounter - VINH Roque - 05/09/2024 1:07 PM EST Patient has appointment today. documented in this encounterFreeman Heart InstituteVsnousembb25-34-7544 History of Present illness Narrative* Giovani Hagen [...] DAY IN THE MORNING 30 tablet 2 Xxodwjuxzht-Qdximzqxj-Wtrqqk 100-62.5-25 MCG/ACT aerosol powder Inhale 1 puff [...] of spine - Primary Relevant Medications HYDROcodone-acetaminophen ([place]) 5-325 MG tablet Other Relevant Orders Ambulatory referral to Pain Medicine No follow-ups on file. documented in this encounterFreeman Heart InstituteEdxclemdgz73-20-9579 Telephone encounter Note* Telephone Encounter - VINH Roque - 05/09/2024 1:07 PM EST Patient has appointment today. [facility] InstituteQdylbkfzyi58-57-3267 History of Present illness Narrative* Prateek Pedraza [...] THE MORNING, Disp: 30 tablet, Rfl: 2 Osjzujjkpds-Dxkxskxwo-Qxbjwv 100-62.5-25 MCG/ACT aerosol powder , Inhale 1 [...] 0 min Stress: Stress Concern Present (04/18/2023) [place] [facility] - Occupational Stress Questionnaire Feeling of Stress : Very much Social Connections: Moderately Integrated (04/18/2023) Social Connection and Isolation Panel [NHANES] Frequency of Communication with Friends and Family: Three times a week Frequency of Social Gatherings with Friends and Family: Twice a week Attends Nondenominational Services: Never Active Member of Clubs or [...] base of the right foot MRI: [place] [address] Magnetic Resonance Report Signed Patient: ORION HARPER MR#: [id number] : 1990 Acct:[id number] Age/Sex: 33 / F ADM Date: 03/14/24 Loc: MRI Attending Dr: Laurie Trujillo M.D. Ordering Physician: Laurie Trujillo M.D. Date of Service: 03/14/24 Procedure(s): MR ankle RT wo con Accession Number(s): [id number] cc: GIOVANI HAGEN ; Laurie Trujillo M.D. [facility] [place] [address] Patient Name: ORION HARPER MRN: [id number] date: 1990 Sex: F Assigned Patient Location: MRI Current Patient Location: Accession/Order Number: [id number] Exam Date: 03/14/2024 15:04 Report Date: 03/17/2024 [...] Dictated By: Michael Cortes M.D. Signed By: 03/17/24910 ASSESSMENT 1. Peroneal tendon tear, right, initial [...] warranted. Prateek Pedraza DPM documented in this encounterFreeman Heart InstituteOcjlexhrdt12-85-9987 Telephone encounter Note* Telephone Encounter - VinhJuleeDrummondCriss fontanez - 05/06/2024 1:40 PM EST Echo was faxed to Anne-Marie @ [phone] & scanned into outside ep. Patient is having a procedure. Crsis Mccrary [facility]01-13-2025 Miscellaneous Notes* Telephone Encounter - Criss Holm - 05/06/2024 1:40 PM EST Echo was faxed to Anne-Marie @ [phone] & scanned into outside ep. Patient is having a procedure. Criss Mccrary documented in this encounterOhio State East Hospital01-10-2025 Telephone encounter Note * Telephone Encounter [...] seen at that time. Lydia Kelley DO [facility]01-09-2025 NoteHNO ID: [id number] Author: ZEHRA GRAY PA-C Service: ? Author Type: Physician Liner Machine Operator Helper Type: Progress Notes Filed: 05/02/2024 11:34 Note [...] Int J Clin Exp Med. 2015 Jan 15;8(10):84105-36. PMID: 32337378; PMCID: GHZ1953183. Ruthann Bob, Juan MEEK, Rico M, Cosmo F, Tawnya J, Everardo O, Leyla F, Franci M, Alejandro G, Dorie A, Gianna E, Leyla L, French G, Kashmir A, Vicente U, Zapata S, Franc P, Max V, Last V, Leena Bob, Neo MARIE. Refining the Baveno elastography criteria for the definition of compensated advanced chronic liver disease. J Hepatol. 2020;74(5):6228-6671. doi: 10.1016/j.jhep.2020.11.050. Epub 2019Apr 01. PMID: 28749702. Izabel Bob, Chastity Moran, Martha Bob, Xiao Bob, Joon Fontanez, Nuria Roth, Trevin Roth, Trixie Kendrick. AASLD practice guidance on the clinical assessment and management of nonalcoholic fatty liver disease. Hepatology. 2022;77(5):7967-1224. doi:10.1097/HEP.0108043809539179JzzxoaaawOhio State Health System 05-02-2024 History of Present illness Narrative* Zehra [...] and referral to hepatology. Zehra Gray PA-C [facility] Fibroscan Fibrosis Risk <7 kPA = [...] Int J Clin Exp Med. 2015 Jan 15;8(10):21440-27.PMID: 22690690; PMCID: [id number]. Ruthann Bob, Juan FANTASMA, Rico M, Cosmo F, Tawnya J, Everardo O, Leyla F, Franci M, Alejandro G, Dorie A, Brogilbertoin E, Leyla L, French G, Kashmir A, [place] U, Zapata S, Jordan, Lucilao V, de Kole V, Leena M, Neo EA. Refining the Baveno elastography criteria for the definition of compensated advanced chronic liver disease. J Hepatol. 2020;74(5):0180-4025. doi: 10.1016/j.jhep.2020.11.050. Epub 2019Apr 01. PMID: 74652809. Izabel Bob, Chastity B, Martha Bob, Xiao Bob, Joon S, Nuria Roth, Trevin Roth, Trixie Kendrick.AASLD practice guidance on the clinical assessment and management of nonalcoholic fatty liver disease. Hepatology. 2022;77(5):1797- 1835. doi:10.1097/HEP.9912136505047278 documented in this encounterOhio State East Hospital01-07-2025 History of Present illness Narrative* Sandy Toribio, BRICKMASON SUPERVISOR - 04/30/2024 2:50 PM EST Reason for [...] on 05/23/[address] Starr at [facility]. MEDICATIONS Current Outpatient Medications Medication Instructions [...] escitalopram (LEXAPRO) 20 mg, Oral, Every morning Vawsmmqsvsb-Uzgnteebe-Lhikct 100-62.5-25 MCG/ACT aerosol powder 1 puff, Inhalation, [...] Attention deficit hyperactivity disorder, predominantly inattentive type ([facility]) 09/23/2022 Bipolar disorder, in partial remission, most recent episode manic ([facility]) 09/23/2022 Diverticular disease of colon 09/23/2022 Dysphagia 09/23/2022 Elevated liver enzymes 09/23/2022 Exercise induced bronchospasm ([facility]) 09/23/2022 Finding of above normal blood pressure 09/23/2022 History of hysterectomy 09/23/2022 Hyperglycemia 09/23/2022 Hypersexuality 09/23/2022 Insomnia 09/23/2022 Irritable bowel syndrome with constipation 09/23/2022 Mild intermittent asthma without complication ([facility]) 09/23/2022 Mood swings 09/23/2022 Nephrolithiasis 09/23/2022 Nonalcoholic steatohepatitis (ENGLISH) 09/23/2022 Other specified abnormal findings of blood chemistry 09/23/2022 Poor concentration 09/23/2022 Sacroiliitis, not elsewhere classified ([facility]) 09/23/2022 Skin pain 09/23/2022 Thyroid enlargement ([facility]) 09/23/2022 Atherosclerosis of aorta ([facility] [facility] 06/16/2020 Atherosclerosis of both carotid arteries 11/16/2020 Atherosclerosis of coronary artery without angina pectoris ([facility]) 05/18/2021 Gastroesophageal reflux disease without esophagitis 07/09/2019 Gastroparesis 11/02/2022 Non-refractory idiopathic generalized epilepsy ([facility]) 11/22/2019 Osteoarthritis of knee 06/14/2019 Hypercholesterolemia ([facility]) 07/01/2021 Recurrent UTI 12/12/2022 Vitamin D deficiency 05/16/2019 Dizziness 12/13/2022 Acute nonintractable headache 12/13/2022 History of COVID-19 02/06/2023 Overweight 02/06/2023 Acute biliary pancreatitis without infection or necrosis 03/21/2023 Calculus of gallbladder without cholecystitis without obstruction 03/23/2023 Cholecystitis 04/18/2023 Encounter for postoperative care 04/18/2023 History of acute pancreatitis 04/18/2023 History of cholecystectomy 04/18/2023 Cough 04/18/2023 Anaphylactic syndrome 04/18/2023 PTSD (post-traumatic stress disorder) ([facility]) 02/24/2015 Tinea 10/03/2023 Weight gain 10/03/2023 Glucose intolerance 10/03/2023 Dyshidrosis 10/03/2023 Encounter for well adult exam without abnormal findings 12/04/2023 Cervical radiculopathy 12/26/2023 Obesity (BMI 35.0-39.9 without comorbidity) 02/06/2024 Localized edema 02/06/2024 Injury of right ankle 02/06/2024 Sprain of anterior talofibular ligament of right ankle 04/01/2024 Pain and swelling of left shoulder 04/03/2024 Asthmatic bronchitis with acute exacerbation ([facility]) 04/16/2024 Snoring 04/16/2024 Resolved Ambulatory [...] nursing note reviewed. Exam conducted with a farm loan representative present. Vitals: Estimated body mass index is [...] reviewed, and patient is to proceed to [facility] OR. Follow Up: Patient is to follow up between 1-2 weeks post operative to assess proper healing and recovery fromprocedure. Documented by Sandy Toribio LPN on behalf of: Darwin Starr DO documented in this encounterFreeman Heart [id number] History of Present illness Narrative* Iliana Mercado [...] she saw Dr. Hylton in 2021 in [facility]. 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 Hylton who is ivory polisher We discussed seeing endocrinology to help with [...] -Fibroscan Iliana Mercado PA-C documented in this encounterOhio [facility]25 NoteHNO ID: [id number] Author: ILIANA MERCADO PA-C Service: ? Author Type: Physician Liner Machine Operator Helper Type: Progress Notes Filed: 04/26/2024 15:02 Note [...] she saw Dr. Hylton in 2021 in [facility]. 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 Hylton who is ivory polisher We discussed seeing endocrinology to help with [...] Narrative I have pers (more content not included)...[facility]01-03-[facility] Instructions* Patient Instructions* Iliana Mercado PA-C - [...] do not hesitate to send me a [employer] message or call. Iliana Mercado PA-C documented in this encounterOhio [facility] Hospital01-03-2025 NoteHNO ID: [id number] Author: LYDIA KELLEY, DO Service: ? Author [...] return to discuss consent (more content not included)...[facility]01-03-2025 History of Present illness Narrative* Lydia Kelley DO - 04/26/2024 12:19 PM EST Images from the original note were not included. Reason for Visit/Chief Complaint Orion Harper is a 33 year old female who presents today for a new evaluation of following complaint: Patient presents with: Right Ankle - New, Pain, Swelling History of Present Illness: PAIN EVALUATION 04/24/20241949 Pain Location: Ankle-Right Description: Aching;Sharp;Shooting;Sore;Throbbing Duration Amount [...] Lydia Kelley D.O. M.P.H. documented in this encounterOhio State East Hospital12-30-2024 Telephone encounter Note * Telephone Encounter - BALDO STRONG - 04/22/2024 9:58 AM EST Patient states she was seen in office on 04-16 and then later in the week she ended up at the Urgent Care due to her cough. She would like Eva Santos called in for her cough. [facility] InstituteTfwgkgxrru54-35-7697 Miscellaneous Notes* Telephone Encounter - BALDO STRONG - 04/22/2024 9:58 AM EST Patient states she was seen in office on 04-16 and then later in the week she ended up at the Urgent Care due to her cough. She would like Evagilberto Santos called in for her cough. documented in this encounterFreeman Heart InstituteVwsptjehvp31-82-4708 History of Present illness Narrative* Josephine Gilman NP - 04/18/2024 4:35 PM EST Images from the original note were not included. [address] , [address] [facility], [address] P: [phone] F: [phone] HPI Historian of HPI: patient Orion Harepr is a 33 y.o. female who presents [...] 20 tablet; Refill: 0 documented in this encounterFreeman Heart InstituteXaovzqzdqk59-75-2050 Telephone encounter Note* Telephone Encounter - Solo [...] she is unable to do the treadmill [facility] Work Phone: [phone] Miscellaneous Notes* Telephone Encounter - Solo Mora [...] to do the treadmill documented in this encounterOhio State East Hospital12-13-2024 Telephone encounter Note * Telephone Encounter - Criss Mccrary - 04/05/2024 1:01 PM EST Outside ep I have a copy @ my desk Criss Mccrary [facility]12-13-2024 Miscellaneous Notes* Telephone Encounter - Criss Holm - 04/05/2024 1:01 PM EST Outside ep I have a copy @ my desk Criss Mccrary documented in this encounterOhio State East Hospital12-11-2024 History of Present illness Narrative* Deena [...] DAY IN THE MORNING 30 tablet 2 Mmbfuroxjrm-Kyrtzakhw-Psklky 100-62.5-25 MCG/ACT aerosol powder INHALE 1 PUFF [...] No follow-ups on file. documented in this encounterFreeman Heart InstituteVxhgvqjbbe85-13-5590 Telephone encounter Note* Telephone Encounter - Criss Mccrary - 04/02/2024 3:50 PM EST This 'Ankle Surgery Clearance' was faxed over to Dr. Giovani Hagen (PCP) @ [phone] for signing. I spoke with the patient. Scanned into outside ep. Criss Mccrary [facility]12-10-2024 Miscellaneous Notes* Telephone Encounter - Criss Holm - 04/02/2024 3:50 PM EST This 'Ankle Surgery Clearance' was faxed over to Dr. Giovani Carrillojeane Hagen (PCP) @ [phone] for signing. I spoke with the patient. Scanned into outside ep. Criss Mccrary documented in this encounterOhio State East Hospital12-09-2024 Miscellaneous Notes* Telephone Encounter - Keri [...] follow up with Dr. Hylton who is ivory polisher We discussed seeing endocrinology to help with [...] Thanks, Connie Lucas RN contains abnormal data [facility] LIVER PANEL Component Ref Range [...] ALBUMIN GLOBULIN RATIO 1.3 ontains abnormal data [facility] LIVER PANEL Component Ref Range [...] - 29 U/L 72 High Lipase Order: [id number] Component Ref Range & Units 1 yr ago Lipase 13 - 60 U/L 260 High Hepatic Function Panel Order: [id number] Component Ref Range & Units 1 yr [...] g/dL 5.7 Low Hepatic Function Panel Order: [id number] Component Ref Range & Units 1 yr [...] ntains abnormal data COMPREHENSIVE METABOLIC PANEL Order: [id number] Component Ref Range & Units 1 yr [...] Filt Rate >60 mL/min/1.73m2 >60 Lipase Order: [id number] Component Ref Range & Units 1 yr [...] follow up with Dr. Hylton who is ivory polisher We discussed seeing endocrinology to help with [...] FRONTAL/LAT Carol Winn MD documented in this encounterOhio State East Hospital12-09-2024 Telephone encounter Note * Telephone Encounter - Keri Jamil - 04/01/2024 11:18 AM EST Pt called to schedule, per message below. First Est slot is July 26 for VV. Please review and advise if a New Pt slot can be used for this Pt. Thank you, [facility]12-09-2024 History of Present illness Narrative* Giovani [...] DAY IN THE MORNING 30 tablet 2 Mrfjnjkpugf-Insduyixs-Nwtqqw 100-62.5-25 MCG/ACT aerosol powder INHALE 1 PUFF [...] No follow-ups on file. documented in this encounterFreeman Heart InstituteLvijdscoxn80-14-2459 Telephone encounter Note* Telephone Encounter - Carol Winn MD - 03/29/2024 9:06 PM EST I saw her in the past for this Per my note, Was seen by Dr. Hylton locally Will obtain labs and fibroscan results She had Nausea and vomiting with statin Couldn't tolerate metformin due to nausea/vomiting and diarrhea She can still follow up with Dr. Hylton who is ivory polisher We discussed seeing endocrinology to help with weight loss and insulin resistance We also discussed cutting back on ETOH to one drink a week (currently 3-4 drinks a week) Did she follow up with Dr. Hylton? She can schedule OV with me if she prefers [facility] Work Phone: [phone] 196-876312-06-2024 Telephone encounter Note* Telephone Encounter - Connie Lucas RN - 03/29/2024 10:[address] Winn, Pt JESSE Dx Fatty Liver, Liver Disease PT sent MYC message requesting a follow up labs show elevated LFTs and wanted them reviewed Please advise Thanks, Connie Lucas, RN contains abnormal data [facility] LIVER PANEL Component Ref Range [...] ALBUMIN GLOBULIN RATIO 1.3 ontains abnormal data [facility] LIVER PANEL Component Ref Range [...] - 29 U/L 72 High Lipase Order: [id number] Component Ref Range & Units 1 yr ago Lipase 13 - 60 U/L 260 High Hepatic Function Panel Order: [id number] Component Ref Range & Units 1 yr [...] g/dL 5.7 Low Hepatic Function Panel Order: [id number] Component Ref Range & Units 1 yr [...] ntains abnormal data COMPREHENSIVE METABOLIC PANEL Order: [id number] Component Ref Range & Units 1 yr [...] Filt Rate >60 mL/min/1.73m2 >60 Lipase Order: [id number] Component Ref Range & Units 1 yr [...] follow up with Dr. Hylton who is ivory polisher We discussed seeing endocrinology to help with [...] XR CHEST 2V FRONTAL/LAT Carol Winn MD [facility]12-04-2024 Telephone encounter Note* Telephone Encounter - VINH Roque - 03/27/2024 1:03 PM EST OARRS reviewed, Rx sent into patient's pharmacy. [facility] I[id number] Miscellaneous Notes* Telephone Encounter - VINH Roque - 03/27/2024 1:03 PM EST OARRS reviewed, Rx sent into patient's pharmacy. * Telephone Encounter - Monet Motley MA - 03/27/2024 12:35 PM EST Per hieu to increase tramadol 50mg 2 po every 6 prn documented in this encounterFreeman Heart InstituteDfpzratvec69-33-0123 Telephone encounter Note* Telephone Encounter - Monet Motley MA - 03/27/2024 12:35 PM EST Per hieu to increase tramadol 50mg 2 po every 6 prn [facility] InstituteRivegdwdsk56-40-1178 Telephone encounter Note* Telephone Encounter - Giovani Hagen MD - 03/25/2024 3:59 PM EST Images from the original note were not included. Patient: Orion A Meredith : 1990 PCP: Giovani Hagen MD Orion Harper is a 33 y.o. female [facility] today [facility]. The main problem requiring [...] side Diabetes Maternal Grandmother Analia Accidental Brother Jsoe Antonio Harper Flowsheet Row Patient Outreach from 01/17/[address] [facility] Information Discharge Date 01/10/24 Discharged To: Home Setting Discharge Hospital [facility] Engagement Call Start Time 1232 Admission [...] End Time 1233 No follow-ups on file. [facility] InstituteSinimzabbg86-22-1591 Miscellaneous Notes* Telephone Encounter - Giovani Hagen MD - 03/25/2024 3:59 PM EST Images from the original note were not included. Patient: Orion Harper : 1990 PCP: Giovani Hagen MD Orion Harper is a 33 y.o. female presenting today [facility]. The main problem requiring [...] Flowsheet Row Patient Outreach from 01/17/[address] [facility] Information Discharge Date 01/10/24 Discharged To: Home Setting Discharge Hospital [facility] Engagement Call Start Time 1232 Admission [...] are in the chart. documented in this encounterFreeman Heart InstituteJxwyfflzln63-74-1262 Telephone encounter Note* Telephone Encounter - BALDO STRONG - 03/25/2024 1:02 PM EST Patient called asking about the results of her MRI, please advise. Results are in the chart. [facility] InstituteKcooxnmfjn41-96-7513 History of Present illness Narrative* Sandy Toribio LPN - 03/20/2024 4:00 PM EST Reason for Appointment: Patient ID: Orion Haprer is a 33 y.o. female who presents [...] escitalopram (LEXAPRO) 20 mg, Oral, Every morning Llapdmgiwib-Acjbeokkh-Tpvzii 100-62.5-25 MCG/ACT aerosol powder INHALE 1 PUFF [...] Attention deficit hyperactivity disorder, predominantly inattentive type ([facility]) 09/23/2022 Bipolar disorder, in partial remission, most recent episode manic ([facility]) 09/23/2022 Diverticular disease of colon 09/23/2022 Dysphagia 09/23/2022 Elevated liver enzymes 09/23/2022 Exercise induced bronchospasm ([facility]) 09/23/2022 Finding of above normal blood pressure 09/23/2022 History of hysterectomy 09/23/2022 Hyperglycemia 09/23/2022 Hypersexuality 09/23/2022 Insomnia 09/23/2022 Irritable bowel syndrome with constipation 09/23/2022 Mild intermittent asthma without complication ([facility]) 09/23/2022 Mood swings 09/23/2022 Nephrolithiasis 09/23/2022 Nonalcoholic steatohepatitis (ENGLISH) 09/23/2022 Other specified abnormal findings of blood chemistry 09/23/2022 Poor concentration 09/23/2022 Sacroiliitis, not elsewhere classified ([facility]) 09/23/2022 Skin pain 09/23/2022 Thyroid enlargement ([facility]) 09/23/2022 Atherosclerosis of aorta ([facility]) 06/16/2020 Atherosclerosis of both carotid arteries 11/16/2020 Atherosclerosis of coronary artery without angina pectoris ([facility]) 05/18/2021 Gastroesophageal reflux disease without esophagitis 07/09/2019 Gastroparesis 11/02/2022 Non-refractory idiopathic generalized epilepsy ([facility]) 11/22/2019 Osteoarthritis of knee 06/14/2019 Hypercholesterolemia ([facility]) 07/01/2021 Recurrent UTI 12/12/2022 Vitamin D deficiency 05/16/2019 Dizziness 12/13/2022 Acute nonintractable headache 12/13/2022 History of COVID-19 02/06/2023 Overweight 02/06/2023 Acute biliary pancreatitis without infection or necrosis 03/21/2023 Calculus of gallbladder without cholecystitis without obstruction 03/23/2023 Cholecystitis 04/18/2023 Encounter for postoperative care 04/18/2023 History of acute pancreatitis 04/18/2023 History of cholecystectomy 04/18/2023 Cough 04/18/2023 Anaphylactic syndrome 04/18/2023 PTSD (post-traumatic stress disorder) ([facility]) 02/24/2015 Tinea 10/03/2023 Weight gain 10/03/2023 Glucose [...] Abnormal LFTs Abnormal liver ultrasound 06/15/2022 Asthma ([facility]) COVID 03/11/2021 Delayed gastric emptying [...] nursing note reviewed. Exam conducted with a farm loan representative present. Vitals: Estimated body mass index is [...] scheduled for dx lap with poss leena rakan foe. Pt has a positive bladder swipe. Rx for doxy faxed to pharmacy. Pap was obtained without difficulty. Orders Placed This Encounter Procedures HPV DNA probe, amplified Follow Up: Patient is to return in one year for annual unless needed otherwise. Documented by Sandy Toribio LPN on behalf of: Darwin Starr DO documented in this [facility]11-14-2024 Telephone encounter Note* Telephone Encounter - VINH Roque - 03/07/2024 11:20 AM EST OARRS reviewed, Rx sent into patient's pharmacy. [facility] [id number] Miscellaneous Notes* Telephone Encounter - VINH Roque - 03/07/2024 11:20 AM EST OARRS reviewed, Rx sent into patient's pharmacy. documented in this encounterFreeman Heart InstituteUcowbnvhai10-62-4386 Telephone encounter Note* Telephone Encounter - VINH Roque - 03/07/2024 9:14 AM EST OARRS reviewed, Rx sent into patient's pharmacy. [facility] InstituteVhmxsokivg94-61-4301 Miscellaneous Notes* Telephone Encounter - VINH Roque - 03/07/2024 9:14 AM EST OARRS reviewed, Rx sent into patient's pharmacy. * Telephone Encounter - Sasha Ng - 03/06/2024 4:22 PM EST ALPRAZolam (Xanax) 0.5 MG tablet [facility] documented in this encounterFreeman Heart InstituteFdzcakured11-22-7422 History of Present illness Narrative* Arun Hernadez [...] seems to be a flair up. Pain: 2 neck, ankle 3 Objective: PT Evaluation (02/05/24) [...] to be instructed in home exercise program. Medical Office Assistant Goals: To be met in 10 weeks [...] 03/07/2024 2:57 PM EST documented in this encounterFreeman Heart InstituteZgjdooorlz06-64-0743 Telephone encounter Note* Telephone Encounter - Sasha Ng - 03/06/2024 4:22 PM EST ALPRAZolam (Xanax) 0.5 MG tablet [facility] InstituteOvxsexeruh82-54-1645 History of Present illness Narrative* Zhen Burgess, [...] to be instructed in home exercise program. Medical Office Assistant Goals: To be met in 10 weeks [...] Please sign below. Date: documented in this encounterFreeman Heart InstituteJmekaqiyzi28-12-3748 History of Present illness Narrative* Giovani Hagen [...] DAY IN THE MORNING 30 tablet 2 Zqawqcpfrpk-Jckzkltpg-Bjiasz 100-62.5-25 MCG/ACT aerosol powder INHALE 1 PUFF [...] CT ANGIOGRAM CHEST 07/30/2018 CT ANGIOGRAM CHEST [facility] EGD 06/30/2022 Normal hypopharynx, [...] No follow-ups on file. documented in this encounterFreeman Heart InstituteEgwaofisqu65-95-6518 Telephone encounter Note* Telephone Encounter - Millicent Cordova - 01/29/2024 11:22 AM EDT 25 visits out to 10/21/24 [facility] InstituteCeevpnzjse30-36-3650 Miscellaneous Notes* Telephone Encounter - Millicent Cordova - 01/29/2024 11:22 AM EDT 25 visits out to 10/21/24 documented in this encounterFreeman Heart InstituteQyljnwysgb81-38-0130 History of Present illness Narrative* Acacia Vigil, BRICKMASON SUPERVISOR - 01/22/2024 1:50 PM EDT Reason for [...] escitalopram (LEXAPRO) 20 mg, Oral, Every morning Siamqqypter-Gvqcpuymf-Hftivw 100-62.5-25 MCG/ACT aerosol powder INHALE 1 PUFF [...] constipation 09/23/2022 Mild intermittent asthma without complication ([facility]) 09/23/2022 Mood swings 09/23/2022 Nephrolithiasis 09/23/2022 Nonalcoholic steatohepatitis (ENGLISH) 09/23/2022 Other specified abnormal findings of blood chemistry 09/23/2022 Poor concentration 09/23/2022 Sacroiliitis, not elsewhere classified ([facility]) 09/23/2022 Skin pain 09/23/2022 Thyroid enlargement ([facility]) 09/23/2022 Atherosclerosis of aorta ([facility]) 06/16/2020 Atherosclerosis of both carotid arteries 11/16/2020 Atherosclerosis of coronary artery without angina pectoris ([facility]) 05/18/2021 Gastroesophageal reflux disease without esophagitis 07/09/2019 Gastroparesis 11/02/2022 Non-refractory idiopathic generalized epilepsy ([facility]) 11/22/2019 Osteoarthritis of knee 06/14/2019 Hypercholesterolemia ([facility]) 07/01/2021 Recurrent UTI 12/12/2022 Vitamin D deficiency 05/16/2019 Dizziness 12/13/2022 Acute nonintractable headache 12/13/2022 History of COVID-19 02/06/2023 Overweight 02/06/2023 Acute biliary pancreatitis without infection or necrosis 03/21/2023 Calculus of gallbladder without cholecystitis without obstruction 03/23/2023 Cholecystitis 04/18/2023 Encounter for postoperative care 04/18/2023 History of acute pancreatitis 04/18/2023 History of cholecystectomy 04/18/2023 Cough 04/18/2023 Anaphylactic syndrome 04/18/2023 PTSD (post-traumatic stress disorder) ([facility]) 02/24/2015 Tinea 10/03/2023 Weight gain [...] nursing note reviewed. Exam conducted with a farm loan representative present. Vitals: Estimated body mass index is [...] of: Darwin Starr DO documented in this encounterFreeman Heart InstituteBpilyskeaa24-63-2926 History of Present illness Narrative* Giovani Hagen [...] DAY IN THE MORNING 30 tablet 2 Jzsogwormui-Oenfimypj-Wiiish 100-62.5-25 MCG/ACT aerosol powder INHALE 1 PUFF [...] No follow-ups on file. documented in this encounterFreeman Heart InstituteYaptgjxdha12-35-2566 Telephone encounter Note* Telephone Encounter - Mala Hirsch - 01/08/2024 12:52 PM EDT [facility]all [facility] InstituteDcrdxrvsqv87-22-1349 Miscellaneous Notes* Telephone Encounter - Mala Hirsch - 01/08/2024 12:52 PM EDT [facility]der[facility] [place] [facility] [place] documented in this encounterFreeman Heart InstituteCiinlnfuno33-69-2705 Hospital Discharge instructions Patient Education 12/28/2023 15:59:41 Kidney Stones, Tjnr-ts-Roda Kidney Stones Kidney stones are rock-like masses [...] Follow these instructions at home: Medicines Take gsmu-vgt-bunycvs and prescription medicines only as told by [...] provider. Document Revised: 12/02/2022 Document Reviewed: 12/02/2022 [place] Patient Education 2023 [employer]. Follow Up Care 11/07/2022 15:52:12 With:OLEG OSEI, BHAVESH Patterson, URL Address: When:1 year [facility] 09-05-2024 NotePatient Education Urology Kidney Stones [...] these instructions at home: Medicines ? Take cxef-xrd-dmsntor and prescription medicines only as told by [...] provider. Document Revised: 12/02/2022 Document Reviewed: 12/02/2022 [place] Patient Education ? 2023 [employer].[facility] 12-26-2023 History of Present illness Narrative* [...] DAY IN THE MORNING 30 tablet 2 Yoifvqquskx-Ylzlvebbz-Opuzya 100-62.5-25 MCG/ACT aerosol powder INHALE 1 PUFF [...] No follow-ups on file. documented in this encounterFreeman Heart InstituteJotkudkeeu01-41-2106 NoteEducation (CARDMN) ORION HARPER ([id number]) 1990 F Date Time Provider Department 12/19/23 [...] infusion Encounter Status:Closed by GEGE LEMA on 12/19/23[facility]08-27-2024 NoteHNO ID: [id number] Author: GEGE LEMA Tech Service: ? Author Type: Technologist Type: Progress Notes Filed: 12/19/2023 15:45 Note Text: EVENT MONITOR DISPOSABLE PATCH INSTRUCTIONS Patient Name: Orion Harper Clinic Number: [id number] Skin prepped and cleansed with alcohol Patch secured to prepped area Monitor Activated Serial #: [id number] Patient Instructed: Prescribed order timeframe Bathing guidelines Usage of event button and diary documentation Return of monitor at the end of prescribed order Call with problems [phone] or [phone]. [phone] Patient expresses a good understanding of instructions Tristian PrettyOhio State Health System08-27-2024 History of Present illness Narrative* Gege Lmea Tech - 12/19/2023 3:44 PM EDT EVENT MONITOR DISPOSABLE PATCH INSTRUCTIONS Patient Name: Orion Harper [facility] Number: [id number] Skin prepped and cleansed with alcohol Patch secured to prepped area Monitor Activated Serial #: [id number] Patient Instructed: Prescribed order timeframe Bathing guidelines Usage of event button and diary documentation Return of monitor at the end of prescribed order Call with problems [phone] or [phone] ext. [phone] Patient expresses a good understanding of instructions Tristian Pretty documented in this encounterOhio [facility] Hospital08-27-2024 Instructions* Patient Instructions* Solo Mora MD - 12/19/2023 3:27 PM EDT Next Steps: 1). Please wear a heart monitor for 2 weeks and mail it back 2). Please get a stress echo done and follow up with me afterwards documented in this encounterOhio State East Hospital08-27-2024 History of Present illness Narrative* Solo Mora MD - 12/19/2023 2:45 PM EDT Images from the original note were not included. [facility] [place] Meghna Hooker Department of Cardiovascular Medicine SECTION OF CARDIAC PACING and ELECTROPHYSIOLOGY OUTPATIENT VISIT DATE December 19, 2023 OUTPATIENT VISIT TYPE NEW PRIMARY CARE PHYSICIAN: Giovani Hagen MD [address] [place] [address] CHIEF COMPLAINT: Syncope, cardiac evaluation for family [...] had any workup done including Stress Echo, court recording monitor or 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 Reports symptoms of [...] had any workup done including Stress Echo, court recording monitor or 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 PLAN AND RECOMMENDATIONS: - Exercise stress echo for exertional syncope to rule out structural or arrhythmic cause - 2 week tina Fitzgerald personally interviewed, confirmed and edited the above information as obtained by others. CONTACT INFORMATION: Solo Mora MD documented in this encounterOhio State East Hospital08-27-2024 NoteHNO ID: [id number] Author: SOLO MORA MD Service: ? Author Type: Physician Type: Progress Notes Filed: 12/28/2023 02:49 Note Text: [facility] [place] Meghna Hooker Department of Cardiovascular Medicine SECTION OF CARDIAC PACING and ELECTROPHYSIOLOGY OUTPATIENT VISIT DATE December 19, 2023 OUTPATIENT VISIT TYPE NEW PRIMARY CARE PHYSICIAN: Giovani Hagen MD [address] [place] [address] CHIEF COMPLAINT: Syncope, cardiac evaluation for family testing HISTORY OF PRESENT ILLNESS: Ms. Harper is a 33 year old female who presents today for syncopal episodes. She has PMHx of IBS, bipolar disease, asthma and syncope. She reports her 9 years old daughter was having symptoms of shortness of breath without exertion and was seen by Dr. sAa Champion. The mother, who is the patient [...] had any workup done including Stress Echo, court recording monitor or 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 Reports symptoms of [...] today for syncopal episod (more content not included)...[facility] NoteHNO ID: [id number] Author: SOLO MORA MD Service: ? Author [...] events correspond to sinus tachycardia Solo Mora, [facility]08-26-2024 Telephone encounter Note * Telephone Encounter - RT. Aroldo Calvo - 12/18/2023 10:09 AM EDT Patient had labwork performed on 12-13-2023. Dr. Colvin wanted you to be aware so you could review them. [facility] [id number] Miscellaneous Notes* Telephone Encounter - RT. Aroldo Calvo - 12/18/2023 10:09 AM EDT Patient had labwork performed on 12-13-2023. Dr. Colvin wanted you to be aware so you could review them. documented in this encounterFreeman Heart [id number] Telephone encounter Note* Telephone Encounter - Criss Mccrary - 11/02/2023 10:39 AM EDT Images from the original note were not included. Records are in Care Everywhere: EP Referral- 11/01/23 (Dr. Shilo Dillon/Cardiology) Criss Mccrary [facility] Miscellaneous Notes* Telephone Encounter - Criss Holm - 11/02/2023 10:39 AM EDT Images from the original note were not included. Records are in Care Everywhere: EP Referral- 11/01/23 (Dr. Shilo Dillon/Cardiology) Criss Mccrary documented in this encounterOhio State East Hospital11-27-2023 Miscellaneous Notes* Telephone Encounter - Charlette [...] PPI prior to transfer. documented in this encounterOhio State East Hospital07-13-2023 Miscellaneous Notes* Telephone Encounter - Janny Frances - 11/03/2022 3:18 PM EDT PA for Ibsrela initiated electronically. Awaiting response [facility] ID# [id number] Rx BIN [id number] Rx PCN CLAIMCR Rx Grp STOH documented in this encounterOhio State East Hospital07-12-2023 History of Present illness Narrative* Soraida Caldwell, PhD - 11/02/2022 5:16 PM EDT Behavioral Medicine [facility] [place] Name: Orion Harper MR#: [id number] Date: 11/02/2022 Time: 1 hour Referred by: [...] She was given the website for the [facility] Behavioral Medicine Program and shown the relaxation recordings with the recommendation to practice this and the rationale behind their use. Follow-up with Dr. Conteh was discussed as well as encouraging her to continue her PTSD work with a local trauma therapist. Soraida Zhang, Ph.D. documented in this encounterOhio State East Hospital07-12-2023 History of Present illness Narrative* Samuel Freeman MD - 11/02/2022 1:00 PM EDT Assessment ASSESSMENT 32 year old female with medical refractory gastroparesis. PLAN I discussed surgical therapy for gastroparesis in detail. Orion Harper is candidate for furthermedical treatment. Needs to stop Wegovy May consider for wireless motility capsule study Constipation medication change per Dr. 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 DO Palomo Keller Sp Ddsi Clinical Pool Please ask her to see CURRICULUM CONSULTANT to r/o endometriosis there was a very slight abnormal wave (not strong) suggesting its possible Called and spoke with the patient and relayed providers message. documented in this encounterOhio State East Hospital06-27-2023 Miscellaneous Notes* Telephone Encounter - Karen Haney LPN - 10/18/2022 11:43 AM EDT PA initiated via [employer]. Await response. Covered: Retail, Mail Order Unknown: Specialty, Long-Term Care Group ID: [id number] Group name: AMENA: [id number] PCN: CLAIMCR documented in this encounterOhio State East Hospital06-27-2023 History of Present illness Narrative* Maria Dolores Corey DO - 10/18/2022 7:49 AM EDT Images from the original note were not included. documented in this encounterOhio State East Hospital06-26-2023 Nurse Note* aJnny Frances - 10/17/2022 10:47 AM EDT EGG completed. Able to drink the 500 ml of water without any difficulty. documented in this encounterOhio State East Hospital05-22-2023 History of Present illness Narrative* Oziel [...] [address] PERFORMED: No IV SITE: [place] only - not applicable, oral or physician administered agents given to patient POST EXAM PIV STATUS: Not applicable PROCEDURE TYPE: NM GET: 1.1 mCi Tc99m SULFUR COLLOID was administered orally via 4 ounces of Egg Beaters,2 pieces of toast, 1 ounce of jelly with 8 ounces of water orally ADMINISTRATION TIME: 10:11AM PATIENT DISCHARGED TO: Ambulatory patient, left [place] department area. A Diagnostic radioactive procedure has taken place, with no further precautions necessary other than routine body substance precautions. More information regarding radiation safety can be found usingthis link: [email or web address] SIGNATURE: RT Amber(R) PATIENT NAME: Orion Harper DATE: September 12, 2022 TIME: 2:45 PM PAGER/CONTACT #: documented in this encounterOhio State East Hospital05-10-2023 Nurse Note* Wilma Limon RN - [...] Wilma Limon RN In Department: AMBULATORY SURGERY [facility] Nurse Note* Wilma Limon RN - [...] In Department: AMBULATORY SURGERY documented in this encounterOhio State East Hospital05-10-2023 History and physical note * Carol [...] DATE: August 31, 2022 TIME: 2:51 PM [facility] History and physical note* Carol Winn [...] 2022 TIME: 2:51 PM documented in this encounterOhio State East Hospital05-10-2023 Nurse Note* Ayleen Aj RN - [...] Ayleen Aj RN In Department: AMBULATORY SURGERY [facility]05-03-2023 Miscellaneous Notes* Telephone Encounter - Светлана Agosto Ma - 08/24/2022 3:59 PM EDT Lm to confirm procedure for 08-31-22 documented in this encounterOhio State East Hospital03-14-2023 Hospital Discharge instructions Patient Education 07/05/2022 [...] MISHRA Address: [facility] [address] [place] [address]- Business (1) When:11/04/2022 08:39:10 Comments:With a stone metabolic work-up [facility]03-09-2023 Nurse Note* Wilma Limon RN - 06/30/2022 12:46 PM EST Pt denies any nausea at this time. Pt given 3 oz of apple juice per request and tolerating at this time. Pt denies any other s/s at this time, smiling in conversation, 500ml of Nacl completed as well. Pt reports she feels ready to go home. [facility]03-[facility] Nurse Note* Wilma [...] in bed at this time. * Wilma iLmon RN - 06/30/2022 11:57 AM EST POST [...] In Department: AMBULATORY SURGERY documented in this encounterOhio State East Hospital03-09-2023 Nurse Note* Wilma Limon [...] Pt resting in bed at this time. [facility]03-09-2023 Nurse Note* Wilma Limon RN - 06/30/2022 [...] By: Wilma Limon In Department: AMBULATORY SURGERY [facility]03-09-2023 History and physical note* Carol Winn MD [...] DATE: June 30, 2022 TIME: 11:35 AM [facility] History and physical note* Carol Winn [...] 2022 TIME: 11:35 AM [place] [address]23 Nurse Note* Elissa Kwok RN - 06/30/2022 [...] Elissa Kwok RN In Department: AMBULATORY SURGERY [facility]03-02-2023 Miscellaneous Notes* Telephone Encounter - Светлана Agosto Ma - 06/23/2022 3:18 PM EST Confirmed procedure for 06-30-22 documented in this encounterOhio State East Hospital02-22-2023 History of Present illness Narrative* Monet [...] 15, 2022 8:08 PM documented in this encounterOhio State East Hospital02-21-2023 Miscellaneous Notes* Telephone Encounter - Wilma [...] if needed pending results documented in this encounterOhio State East Hospital02-17-2023 History of Present illness Narrative* Diamond Rojas RT(R) - 06/10/2022 10:01 AM EST Radiology [...] 10, 2022 10:01 AM documented in this encounterOhio State East Hospital02-03-2023 History of Present illness Narrative* Acacia [...] 27, 2022 12:29 PM documented in this encounterOhio State East Hospital02-03-2023 History of Present illness Narrative* Carol [...] follow up with Dr. Hylton who is ivory polisher We discussed seeing endocrinology to help with [...] No follow-ups on file. documented in this encounterOhio State East Hospital01-10-2023 Evaluation note* Encounter Date Diagnosis Assessment Notes Treatment Notes Treatment Clinical Notes Apr, ENGLISH (nonalcoholic steatohepatitis) (ICD-10 - K75.81) Apr, Abnormal ultrasound (ICD-10 - R93.89) Apr, Elevated liver enzymes (ICD-10 - R74.8) Apr, Liver cyst (ICD-10 - K76.89) [employer] Other Evaluation + Plan note Future Appointments Appointment Date:06/30/2022 10:00:00 AM Scheduled Provider: Location:[facility] Appointment Type:Urology CALL PAT Appointment Date:07/05/2022 08:15:00 AM Scheduled Provider: Location:[facility] Appointment Type:Urology FT Diagnostic Tests Pending * [facility]ments Appointment Date:11/07/2022 03:15:00 PM Scheduled Provider:Madhuri MISHRA MD Location:[facility] Future Appointments Appointment Date:12/30/2024 03:15:00 PM Scheduled Provider:Madhuri MISHRA MD Location:[facility] Appointment Type:URO Office Visit [facility] evaluation noteNo assessment information available [facility] Work Phone: Evaluation note* Diagnosis Fatty liver- Primary Other chronic nonalcoholic liver disease Bilious vomiting with nausea Right sided abdominal pain Abdominal pain, unspecified site Nausea Nausea alone History of diverticulitis SOB (shortness of breath) Shortness of breath documented in this encounter [facility] note* Diagnosis Liver lesion- Primary Other specified disorders of liver documented in this encounter [facility] note* Diagnosis Gastroparesis- Primary documented in this encounter [facility] note* Diagnosis Gastroparesis- Primary documented in this encounter [facility] note* Diagnosis Irritable bowel syndrome with constipation- Primary Irritable bowel syndrome documented in this encounter [facility] note* Diagnosis Gastroparesis documented in this encounter [facility] note* Diagnosis Gastroparesis- Primary documented in this encounter [facility] note* Diagnosis SOB (shortness of breath) Shortness of breath documented in this encounter [facility] note* Diagnosis Liver lesion Other specified disorders of liver documented in this encounter [facility] note* Diagnosis Elevated LFTs Other abnormal blood chemistry documented in this encounter [facility] note* Diagnosis Bilious vomiting with nausea Right sided abdominal pain Abdominal pain, unspecified site Nausea Nausea alone documented in this encounter [facility] note* Diagnosis Nausea Nausea alone documented in this encounter [facility] note* Diagnosis Gastroparesis- Primary documented in this encounter [facility] note* Diagnosis Syncope and collapse- Primary documented in this encounter [facility] note* Diagnosis Syncope, unspecified syncope type- Primary documented in this encounter [facility] note* Diagnosis Syncope, unspecified syncope type- Primary documented in this encounter [facility] note* Diagnosis Nausea- Primary Nausea alone PUD (peptic ulcer disease) Peptic ulcer, unspecified site, unspecified as acute or chronic, without mention of hemorrhage, perforation, or obstruction Nausea Nausea alone documented in this encounter [facility] note* Diagnosis PUD (peptic ulcer disease)- Primary Peptic ulcer, unspecified site, unspecified as acute or chronic, without mention of hemorrhage, perforation, or obstruction Bilious vomiting with nausea Right sided abdominal pain Abdominal pain, unspecified site Nausea- Primary Nausea alone PUD (peptic ulcer disease) Peptic ulcer, unspecified site, unspecified as acute or chronic, without mention of hemorrhage, perforation, or obstruction documented in this encounter [facility] note* Diagnosis Attention deficit hyperactivity disorder, predominantly [...] asthma (CMS/HCC)- Primary documented in this encounter [facility]* Diagnosis Elevated LFTs- Primary Other abnormal blood chemistry BRBPR (bright red blood per rectum) Hemorrhage of rectum and anus documented [facility] this encounter [facility]* Diagnosis Attention deficit hyperactivity disorder, [...] 35.0-39.9 without comorbidity) documented in this encounter [facility]* Diagnosis Elevated LFTs- Primary Other abnormal blood chemistry [facility] Elevated LFTs- Primary Other abnormal blood chemistry documented [facility] this encounter [facility]* Diagnosis Attention deficit hyperactivity disorder, [...] Moderate persistent asthmatic bronchitis with acute exacerbation ([facility]/HCC)- Primary Sprain of anterior talofibular ligament of right ankle, subsequent encounter Snoring Other dyspnea and respiratory abnormality Peroneal tendon tear, right, initial encounter- Primary Sprain of anterior talofibular ligament of right ankle, subsequent encounter Osteochondritis dissecans of ankle, right Severe ankle sprain, right, initial encounter documented in this encounter [facility]* Diagnosis Right ankle instability- Primary Other joint derangement, not elsewhere classified, ankle and foot Right ankle instability Other joint derangement, not elsewhere classified, ankle and foot [facility] Diagnosis Sprain of anterior talofibular ligament of right ankle, initial encounter- Primary Right ankle instability Other joint derangement, not elsewhere classified, ankle and foot [facility]* Diagnosis Attention deficit hyperactivity disorder, predominantly inattentive type (CMS/HCC)- Primary Bipolar disorder, in partial remission, most recent episode manic ([facility]/HCC) Dizziness Dizziness and giddiness Nonintractable episodic headache, [...] of spine- Primary documented in this encounter [facility]* Diagnosis ENGLISH (nonalcoholic steatohepatitis)- Primary Other chronic nonalcoholic liver disease Right ankle instability Other joint derangement, not elsewhere classified, ankle and foot [facility]* Diagnosis Attention deficit hyperactivity disorder, [...] ankle and foot documented in this encounter [facility]* Diagnosis Attention deficit hyperactivity disorder, [...] cervix and uterus documented in this encounter [facility]* Diagnosis BRBPR (bright red blood per rectum) Hemorrhage of rectum and anus documented [facility] encounter [facility]* Diagnosis Attention deficit hyperactivity disorder, [...] Moderate persistent asthmatic bronchitis with acute exacerbation ([facility]/HCC)- Primary Sprain of anterior talofibular ligament [...] Other specified dyspareunia documented in this encounter [facility] note* Diagnosis Pelvic pain in female- Primary Unspecified symptom associated with female genital organs Other specified dyspareunia documented in this encounter [facility] note* Diagnosis Chronic idiopathic constipation Unspecified constipation documented in this encounter [facility] note* Diagnosis Attention deficit hyperactivity disorder, predominantly [...] in partial remission, most recent episode manic ([facility]) Prediabetes Other abnormal glucose Anxiety- Primary Anxiety state, unspecified Generalized idiopathic epilepsy and epileptic syndromes, not intractable, without status epilepticus ([facility]) 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[facility]) Other disorder of impulse control PTSD (post-traumatic stress disorder) ([facility]) Posttraumatic stress disorder Peroneal tendon tear, right, initial encounter- Primary Right ankle instability Other joint derangement, not elsewhere classified, ankle and foot Contracture of right ankle documented in this encounter [facility]* Diagnosis Attention deficit hyperactivity disorder, predominantly inattentive type ([facility]/HCC)- Primary Bipolar disorder, in partial remission, most recent episode manic ([facility]) Dizziness Dizziness and giddiness Nonintractable episodic headache, unspecified headache type Attention deficit hyperactivity disorder, predominantly inattentive type ([facility]/HCC)- Primary Anxiety Anxiety state, unspecified Bipolar disorder, in partial remission, most recent episode manic ([facility]) History of cholecystectomy Other acquired absence of organ History of acute pancreatitis Anaphylaxis, sequela Cough, unspecified type Bipolar disorder, in partial remission, most recent episode manic ([facility]/HCC)- Primary Attention deficit hyperactivity disorder (ADHD), predominantly inattentive type ([facility]/HCC) Attention deficit hyperactivity disorder, predominantly inattentive type ([facility]) Anxiety Anxiety state, unspecified Encounter for well adult exam without abnormal findings- Primary Attention deficit hyperactivity disorder, predominantly inattentive type ([facility]/HCC) Anxiety Anxiety state, unspecified Vitamin D deficiency Bipolar disorder, in partial remission, most recent episode manic ([facility]) Obesity (BMI 35.0-39.9 without comorbidity) Cervical radiculopathy- Primary Brachial neuritis or radiculitis nos Acute nonintractable headache, unspecified headache type Nausea and vomiting, unspecified vomiting type Localized edema- Primary Edema Obesity (BMI 35.0-39.9 without comorbidity) Injury of right ankle, subsequent encounter Anxiety Anxiety state, unspecified Bipolar disorder, in partial remission, most recent episode manic ([facility]) Tremors of nervous system- Primary Mild intermittent asthma without complication ([facility]) Moderate persistent asthmatic bronchitis with acute exacerbation ([facility])- Primary Sprain of anterior talofibular [...] subsequent encounter- Primary [facility] Palpitation- Primary Palpitations [facility] Diagnosis Attention deficit hyperactivity disorder, [...] Attention deficit hyperactivity disorder, predominantly inattentive type ([facility]/HCC)- Primary Anxiety Anxiety state, unspecified Bipolar disorder, in partial remission, most recent episode manic (/) History of cholecystectomy Other acquired absence of organ History of acute pancreatitis Anaphylaxis, sequela Cough, unspecified type Bipolar disorder, in partial remission, most recent episode manic (/)- Primary Attention deficit hyperactivity disorder (ADHD), predominantly inattentive type (/HCC) Attention deficit hyperactivity disorder, predominantly inattentive type (CMS/HCC) Anxiety Anxiety state, unspecified Encounter for well adult exam without abnormal findings- Primary Attention deficit hyperactivity disorder, predominantly inattentive type ([facility]/HCC) Anxiety Anxiety state, unspecified Vitamin D deficiency Bipolar disorder, in partial remission, most recent episode manic (/) Obesity (BMI 35.0-39.9 without comorbidity) Cervical radiculopathy- Primary Brachial neuritis or radiculitis nos Acute nonintractable headache, unspecified headache type Nausea and vomiting, unspecified vomiting type Localized edema- Primary Edema Obesity (BMI 35.0-39.9 without comorbidity) Injury of right ankle, subsequent encounter Anxiety Anxiety state, unspecified Bipolar disorder, in partial remission, most recent episode manic (/) Tremors of nervous system- Primary Mild intermittent asthma without complication ([facility]/) Moderate persistent asthmatic bronchitis with acute exacerbation ([facility]/)- Primary Sprain of anterior talofibular ligament of right ankle, subsequent encounter Snoring Other dyspnea and respiratory abnormality 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[facility]/)- Primary 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), predominantly inattentive type ([facility]/) Bipolar disorder, in partial remission, most recent episode manic ([facility]/) Prediabetes Other abnormal glucose Anxiety- Primary Anxiety state, unspecified Generalized idiopathic epilepsy and epileptic syndromes, not intractable, without status epilepticus ([facility]) 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[facility]) Other disorder of impulse control PTSD (post-traumatic stress disorder) ([facility]) Posttraumatic stress disorder 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 Anxiety Anxiety state, unspecified PTSD (post-traumatic stress disorder) ([facility]/HCC) Posttraumatic stress disorder 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CMS/HCC) Other disorder [...] Moderate persistent asthmatic bronchitis with acute exacerbation ([facility]/HCC)- Primary Sprain of anterior talofibular ligament [...] unspecified hemorrhoid type [facility] Diagnosis Attention deficit hyperactivity disorder, [...] persistent asthmatic bronchitis with acute exacerbation ([facility])- Primary Sprain of anterior talofibular [...] with panic disorder [facility] Diagnosis Pelvic floor dysfunction- Primary Pelvic muscle wasting Chronic constipation Unspecified constipation Gastroparesis [facility] Diagnosis Attention deficit hyperactivity disorder, [...] of status migrainosus documented in this encounter [facility]* Diagnosis Muscle spasm- Primary Spasm of muscle Pelvic floor dysfunction Pelvic muscle wasting Chronic constipation Unspecified constipation [facility] Diagnosis Pelvic floor dysfunction Pelvic muscle wasting Chronic constipation Unspecified constipation [facility] Diagnosis Pelvic floor dysfunction Pelvic muscle wasting Chronic constipation Unspecified constipation [facility] Diagnosis Pelvic floor dysfunction Pelvic muscle wasting Chronic constipation Unspecified constipation [facility] Diagnosis Attention deficit hyperactivity disorder, [...] Primary Mild intermittent asthma without complication ([facility]) Moderate persistent asthmatic bronchitis with acute exacerbation [...] manic (HCC) [facility] Primary Laceration of right knee, subsequent encounter Elevated liver enzymes- Primary Other nonspecific abnormal [...] Other chronic pain [facility] N[facility]ative - Reported* Type Description Date Medical History Anxiety Medical History Depression Medical History Diverticulosis Medical History bipolar Surgical History C section Surgical History hysterectomy Hospitalization History see above Hospitalization History diverticulitis 01/24/18 Hospitalization History NONE ON THE LAST YEAR [employer] Other Hospital course Narrative No data available for this section [facility] No data available for this section [facility] No data available for this section [facility] Outpatient Procedure (Routine) - Authorized Specialty Diagnoses / Procedures Referred By Norma t Referred To Contact [facility] Diagnoses Bilious vomiting with nausea Right sided abdominal pain Procedures EGD DIAGNOSTIC ESOPHAGOGASTRODUODENOSC [place] [address] [place] [address] [facility] [place] [address] [place] [address] Referral ID Status Reason Start Date Expiration Date Visits Requested Visits Authorized [id number] Authorized Auto-Generat ed Referral 05/27/2022 05/27/2023 1 1 * MRI/CT (Routine) - Authorized Specialty Diagnoses / Procedures Referred By Contac t Referred To Contact CT IMAGING Diagnoses Bilious vomiting with nausea Right sided abdominal pain Nausea Procedures CT ABD/PEL WO IVCON CT ABD & PELVIS W/O CONTRAST Carol Winn [place] [id number] [place] [phone] Ct Imaging Referral ID Status Reason Start Date Expiration Date Visits Requested Visits Authorized [id number] Authorized Auto-Generat ed Referral 05/27/2022 06/26/2023 1 1 [facility] for referral (narrative)* Diagnostic Procedure Only (Routine) - Authorized Specialty Diagnoses / Procedures Referred By Contac t Referred To Contact US IMAGING Diagnoses Liver lesion Procedures US ABD RT UPPER QUADRANT US ABDOMINAL REAL TIME W/IMAGE LIMITED Carol Winn MD [id number] [place] [phone] [facility] Referral ID Status Reason Start Date Expiration Date Visits Requested Visits Authorized [id number] Authorized Auto-Generat ed Referral 06/14/2022 07/14/2023 1 1 [facility] for referral (narrative)* Diagnostic Procedure Only (Routine) - Closed Specialty Diagnoses / Procedures Referred By Contac t Referred To Contact US IMAGING Diagnoses Liver lesion Procedures US ABD RT UPPER QUADRANT US ABDOMINAL REAL [place] W/[place] [address] [place] [address] [place] [address] Referral ID Status Reason Start Date Expiration Date V isits Requested Visits Authorized [id number] Closed Auto-Generate d Referral 06/14/2022 07/14/2023 1 1 [facility] for referral (narrative)* Diagnostic Procedure Only (Routine) - Closed Specialty Diagnoses / Procedures Referred By Contac t Referred To Contact US IMAGING Diagnoses Elevated LFTs Procedures US ABD RT UPPER QUADRANT US ABDOMINAL REAL [place] W/[place] [address] [place] [address] [place] [address] Referral ID Status Reason Start Date Expiration Date V isits Requested Visits Authorized [id number] Closed Auto-Generate d Referral 11/24/2021 12/24/2022 1 1 [facility] for referral (narrative)* Diagnostic Procedure Only (Routine) - Closed Specialty Diagnoses / Procedures [facility] To Contact [facility] Diagnoses Nausea Procedures NM GASTRIC EMPTYING SOLID [place] [address] [place] [address] Molecular & Functional Imaging [address] [place] [address] Referral ID Status Reason Start Date Expiration Date V isits Requested Visits Authorized [id number] Closed Auto-Generate d Referral 08/31/2022 09/30/2023 1 1 T [facility] for referral (narrative)* Outpatient Procedure (Routine) - Authorized Specialty Diagnoses / Procedures [facility] Referred [facility] Diagnoses Gastroparesis Procedures ECG COMPLETE ECG ROUTINE ECG W/LEAST 12 LDS W/I&R Solo Mora MD [id number] [place] [address] Referral ID Status Reason Start Date Expiration Date Visits Requested Visits Authorized [id number] Authorized Auto-Generat ed Referral 11/02/2023 11/01/2024 1 1 T [facility] for referral (narrative)* Outpatient Procedure (Routine) - Authorized Specialty Diagnoses / Procedures [facility] Ref[facility] Diagnoses Syncope and collapse Procedures ECG COMPLETE ECG ROUTINE ECG W/LEAST 12 LDS W/I&R Solo Mora MD [address] [place] [address] [facility] [place] [address] [place] [address] Referral ID Status Reason Start Date Expiration Date Visits Requested Visits Authorized [id number] Authorized Auto-Generat ed Referral 12/19/2023 12/18/2024 1 1 [facility] for referral (narrative)* Diagnostic Procedure Only (Routine) - Closed Specialty Diagnoses / Procedures [facility] Referred To Contact [facility]CULAR [facility] IMAGING Diagnoses Nausea Procedures NM GASTRIC EMPTYING SOLID [place]STR[place] [address] [place] [address] [facility] [address] [place] [address] Referral ID Status Reason Start Date Expiration Date V isits Requested Visits Authorized [id number] Closed Auto-Generate d Referral 08/31/2022 09/30/2023 1 1 * Outpatient Procedure (Routine) - Closed Specialty Diagnoses / Procedures [facility] Referred To Contact [facility] Diagnoses PUD (peptic ulcer disease) Procedures EGD DIAGNOSTIC ESOPHAGOGASTRODUODENOSC OPY [place] [address] [place] [address] [facility] [place] [address] [place] [address] Referral ID Status Reason Start Date Expiration Date V isits Requested Visits Authorized [id number] Closed Auto-Generate d Referral 06/30/2022 07/01/2023 1 1 [facility] for referral (narrative)* Outpatient Procedure (Routine) - Closed Specialty Diagnoses / Procedures Referred By Contac t Referred To Contact [facility] Diagnoses PUD (peptic ulcer disease) Procedures EGD DIAGNOSTIC ESOPHAGOGASTRODUODENOSC OPY TRANSORAL DIAGNOSTIC Carol Winn MD [id number] [place] [phone] [address] Referral ID Status Reason Start Date Expiration Date V isits Requested Visits Authorized [id number] Closed Auto-Generate d Referral 06/30/2022 07/01/2023 1 1 * Outpatient Procedure (Routine) - Closed Specialty Diagnoses / Procedures [facility] Referred To [facility] Diagnoses Bilious vomiting with nausea Right sided abdominal pain Procedures EGD DIAGNOSTIC ESOPHAGOGASTRODUODENOSC OPY TRANSORAL DIAGNOSTIC Carol Winn MD [id number] [place] [phone] [address] Referral ID Status Reason Start Date Expiration Date V isits Requested Visits Authorized [id number] Closed Auto-Generate d Referral 05/27/2022 05/27/2023 1 1 [facility] for referral (narrative)* Outpatient Procedure (Routine) - Authorized Specialty Diagnoses / Procedures Referred By Contac t Referred To Contact [facility] [place] Diagnoses BRBPR (bright red blood per rectum) Procedures COLONOSCOPY DIAGNOSTIC COLONOSCOPY FLX DX W/COLLJ SPEC WHEN PFRMD Iliana Mercado PA-C [id number] [place] [address] [address] Referral ID Status Reason Start Date Expiration Date Visits Requested Visits Authorized [id number] Authorized Auto-Generat ed Referral 04/26/2024 04/26/2025 1 1 * Outpatient Procedure (Routine) - Authorized Specialty Diagnoses / Procedures Referred By Contac t Referred To Contact [facility] Diagnoses Elevated LFTs Procedures DDI VIBRATION CONTROLLED TRANSIENT ELASTOGRAPHY (VCTE) LIVER ELASTOGRAPHY W/O IMAG W/I&R Iliana Mercado PA-C [address] [place] [address] [address] Referral ID Status Reason Start Date Expiration Date Visits Requested Visits Authorized [id number] Authorized Auto-Generat ed Referral 04/26/2024 04/26/2025 1 1 [facility] for referral (narrative)* Outpatient Procedure (Routine) - Pending Review Specialty Diagnoses / Procedures Referred By Contac t Referred To Contact [facility] Diagnoses ENGLISH (nonalcoholic steatohepatitis) Procedures LIVER BIOPSY NEEDLE BIOPSY LIVER NEEDLE PERCUTANEOUS Rosario Mcconnell I, MD [address] [place] [address] [address] Referral ID Status Reason Start Date Expiration Date Visits Requested Visits Authorized [id number] Pending Review Auto-Generat ed Referral 05/14/2024 05/14/2025 1 1 [facility] for referral (narrative)* Outpatient Procedure (Routine) - Closed Specialty Diagnoses / Procedures Referred By Contac t Referred To Contact [facility] Diagnoses BRBPR (bright red blood per rectum) Procedures COLONOSCOPY DIAGNOSTIC COLONOSCOPY FLX DX W/COLLJ SPEC WHEN PFRMD Iliana eMrcado PA-C [address] [place] [address] [address] Referral ID Status Reason Start Date Expiration Date V isits Requested Visits Authorized [id number] Closed Auto-Generate d Referral 04/26/2024 04/26/2025 1 1 [facility] for visit NarrativePATIENT HERE AT THE REQUEST OF DR. HAGEN FOR ENGLISH & ABNORMAL US. ULTRASOUND AND LABS IN REFERRAL. PATIENT STATES SHE FEELS LETHARGIC & HAS OCCASIONAL ABDOMINAL PA[place]edar [place] [facility] N[facility]ative* Diagnostic Procedure Only (Routine) - Closed Specialty Diagnoses / Procedures Referred By Contac t Referred To Contact US IMAGING Diagnoses Liver lesion Procedures US ABD RT UPPER QUADRANT US ABDOMINAL REAL [place] W/[place] [address] [place] [address] [place] [address] Referral ID Status Reason Start Date Expiration Date V isits Requested Visits Authorized [id number] Closed Auto-Generate d Referral 06/14/2022 07/14/2023 1 1 [facility] for visit Narrative* Diagnostic Procedure Only (Routine) - Closed Specialty Diagnoses / Procedures Referred By Contac t Referred To Contact US IMAGING Diagnoses Elevated LFTs Procedures US ABD RT UPPER QUADRANT US ABDOMINAL REAL [place] W/[place] [address] [place] [address] [place] [address] Referral ID Status Reason Start Date Expiration Date V isits Requested Visits Authorized [id number] Closed Auto-Generate d Referral 11/24/2021 12/24/2022 1 1 [facility] for visit Narrative* Diagnostic Procedure Only (Routine) - Closed Specialty Diagnoses / Procedures Referred By Contac t Referred To Contact [facility] Diagnoses Nausea Procedures NM GASTRIC EMPTYING SOLID [place] [address] [place] [address] Molecular [facility] Functional [facility] [address] [place] [address] Referral ID Status Reason Start Date Expiration Date V isits Requested Visits Authorized [id number] Closed Auto-Generate d Referral 08/31/2022 09/30/2023 1 1 [facility] for visit Narrative* Outpatient Procedure (Routine) - Closed Specialty Diagnoses / Procedures Referred By Norma kennedy Referred To Contact [facility] Diagnoses PUD (peptic ulcer disease) Procedures EGD DIAGNOSTIC ESOPHAGOGASTRODUODENOSC OPY [place] [address] [facility] [place] [address] [facility] [address] [place] [address] Referral ID Status Reason Start Date Expiration Date V isits Requested Visits Authorized [id number] Closed Auto-Generate d Referral 06/30/2022 07/01/2023 1 1 [facility] for visit Narrative* Outpatient Procedure (Routine) - Closed Specialty Diagnoses / Procedures Referred By Norma kennedy Referred To Contact [facility] Diagnoses Bilious vomiting with nausea Right sided abdominal pain Procedures EGD DIAGNOSTIC ESOPHAGOGASTRODUODENOSC OPY [place] [address] [place] [address] [address] Referral ID Status Reason Start Date Expiration Date V isits Requested Visits Authorized [id number] Closed Auto-Generate d Referral 05/27/2022 05/27/2023 1 1 [facility] for visit Narrative* Rehabilitation - Outpatient (Routine) - Authorized Specialty Diagnoses / Procedures Referred By Norma kennedy Referred To Contact Physical Therapy Diagnoses Cervical radiculopathy Procedures [place] OFFICE/OUT[facility] 60 MINUTES Giovani Hagen MD 112 [facility] [address] [place] [address] Phone: tel: fax: Zhen Burgess, PT 112 [facility] [address] [place] [address] Phone: tel: fax: Referral ID Status Reason Start Date Expiration Date Visits Requested Visits Authorized [id number] Authorized Specialty Services Required 01/25/2024 10/21/2024 25 25 [facility]* Rehabilitation - Outpatient (Routine) - Authorized Specialty Diagnoses / Procedures Referred By Norma t Referred To Contact Physical Therapy Diagnoses Cervical radiculopathy Unspecified injury of right ankle, subsequent encounter Procedures [place] OFFICE/OUTPATIENT NEW HIGH MDM 60 MINUTES Giovani Hagen MD 112 [facility] [address] [place] [address] Phone: tel: fax: Zhen Burgess, PT 112 [facility] [address] [place] [address] Phone: tel: fax: Referral ID Status Reason Start Date Expiration Date Visits Requested Visits Authorized [id number] Authorized Specialty Services Required 01/25/2024 10/21/2024 25 25 [facility]* Outpatient Procedure (Routine) - Closed Specialty Diagnoses / Procedures Referred By Patrickmusa t Referred To Contact [facility] Diagnoses Elevated LFTs Procedures DDI VIBRATION CONTROLLED TRANSIENT ELASTOGRAPHY (VCTE) LIVER ELASTOGRAPHY W/O IMAG W/I&R Iliana Mercado PA-C [address] [place] [address] [facility] [place] [id number] Referral ID Status Reason Start Date Expiration Date V isits Requested Visits Authorized [id number] Closed Auto-Generate d Referral 04/26/2024 04/26/2025 1 1 [facility] for visit Narrative* Outpatient Procedure (Routine) - Closed Specialty Diagnoses / Procedures Referred By Norma t Referred To Contact [facility] Diagnoses BRBPR (bright red blood per rectum) Procedures COLONOSCOPY DIAGNOSTIC COLONOSCOPY FLX DX W/COLLJ SPEC WHEN PFRMD Iliana Mercado PA-C [address] [place] [id number] [facility] [place] [id number] Referral ID Status Reason Start Date Expiration Date V isits Requested Visits Authorized [id number] Closed Auto-Generate d Referral 04/26/2024 04/26/2025 1 1 [facility] for visit Narrative* Diagnostic Procedure Only (Routine) - Closed Specialty Diagnoses / Procedures Referred By Contac t Referred To Contact [facility] Diagnoses Other specified dyspareunia Pelvic pain in female Procedures PELVIC US WHI US PELVIC NONOBSTETRIC REAL-TIME IMAGE COMPLETE Javy Boudreaux MD [address] [address] Phone: tel: fax: [facility] [address] [place] [address] Referral ID Status Reason Start Date Expiration Date V isits Requested Visits Authorized [id number] Closed Auto-Generate d Referral 07/10/2024 07/10/2025 1 1 [facility] for visit Narrative* Diagnostic Procedure Only (Routine) - Closed Specialty Diagnoses / Procedures Referred By Contac t Referred To Contact XR IMAGING Diagnoses Chronic idiopathic constipation Procedures XR ABDOMEN 2V ROUTINE SUPINE W UPRIGHT/DECUB/CTL RADIOLOGIC EXAM ABDOMEN 2 VIEWS Iliana Mercado PA-C [address] [place] [address] Phone: tel: fax: [place] [id number] Referral ID Status Reason Start Date Expiration Date V isits Requested Visits Authorized [id number] Closed Auto-Generate d Referral 07/09/2024 08/07/2025 1 1 [facility] for visit Narrative* Diagnostic Procedure Only (Routine) - Authorized Specialty Diagnoses / Procedures Referred By Contac t Referred To Contact XR IMAGING Diagnoses Pelvic floor dysfunction Chronic constipation Procedures XR ABDOMEN 1V SUPINE RADIOLOGIC EXAM ABDOMEN 1 VIEW Mario Harper, BASSAM.ACCOUNT PROCESSOR [address] [place] [address] Phone: tel: fax: [place] [id number] Referral ID Status Reason Start Date Expiration Date Visits Requested Visits Authorized [id number] Authorized Auto-Generat ed Referral 10/09/2024 11/08/2025 3 3 [facility] Summary Purpose Family History Relationship Condition Age at Onset Recorded Date/T estiven mother Hypertension Unknown Family history of mental disorder Unknown Advance Directives Advance Directive Response Recorded Date/ [...] cervical spine wo contrast Giovani Hagen MD [address] [place] [address] Referral ID Status Reason Start Date Expiration Date V isits Requested Visits Authorized [id number] Pending Review 01/09/2024 07/07/2024 1 1 Specialty Diagnoses / Procedures Referred By Contac t Referred To Contact Diagnoses Attention deficit hyperactivity disorder (ADHD), predominantly inattentive type (CMS/HCC) Giovani Hagen MD [address] [address] Referral ID Status Reason Start Date Expiration Date Visits Re quested Visits Authorized [id number] Closed 1 1 Specialty Diagnoses / Procedures Referred By Contac t Referred To Contact Diagnoses Attention deficit hyperactivity disorder (ADHD), predominantly inattentive type (CMS/HCC) Giovani Hagen MD [address] [address] Referral ID Status Reason Start Date Expiration Date V isits Requested Visits Authorized [id number] Pending Review 01/08/2024 07/06/2024 1 1 Specialty Diagnoses / Procedures Referred By Contac t Referred To Contact [facility] Diagnoses Syncope, unspecified syncope type Procedures CARDIOVASCULAR MEDICINE [place] [address] [place] [address] [facility] [place] [address] [place] [address] Referral ID Status Reason Start Date Expiration Date Visits Requested Visits Authorized [id number] Ref Not Required PCP Requested Referral 12/28/2023 12/27/2024 1 1 Specialty Diagnoses / Procedures Referred By Contac t Referred To Contact [facility] Diagnoses Syncope, unspecified syncope type Procedures STRESS ECHO TREADMILL ECHO TTHRC R-T 2D W/WO M-MODE COMPLETE REST&ST Solo Mora MD [address] [place] [address] [facility] [address] [address] Referral ID Status Reason Start Date Expiration Date Visits Requested Visits Authorized [id number] Authorized Auto-Generat ed Referral 12/19/2023 12/18/2024 1 1 Specialty Diagnoses / Procedures Referred By Norma t Referred To Contact CT IMAGING Diagnoses Bilious vomiting with nausea Right sided abdominal pain Nausea Procedures CT ABD/PEL WO IVCON CT ABD & P[place] [address] [place] [address] Ct Imaging [id number] Referral ID Status Reason Start Date Expiration Date V isits Requested Visits Authorized [id number] Closed Auto-Generate d Referral 05/27/2022 06/26/2023 1 1 Additional Source Comments INFORMATION SOURCE (unrecogn ized section and content) DATE CREATED AUTHOR 11/09/2018 [facility] DATE CREATED AUTHOR AUTHOR'S ORGANIZ ATION 08/23/2021 [facility] Specialist DATE CREATED AUTHOR AUTHOR'S ORGANIZ ATION 07/17/2022 [facility] DATE CREATED AUTHOR AUTHOR'S ORGANIZ ATION 03/22/2023 [facility] DATE CREATED AUTHOR AUTHOR'S ORGANIZ ATION 03/28/2023 [facility] DATE CREATED AUTHOR AUTHOR'S ORGANIZ ATION 04/07/2024 [facility] DATE CREATED AUTHOR AUTHOR'S ORGANIZ ATION 04/12/2024 [facility] DATE CREATED AUTHOR AUTHOR'S ORGANIZ ATION 08/11/2024 [facility] DATE CREATED AUTHOR AUTHOR'S ORGANIZ ATION 09/26/2024 [facility] DATE CREATED AUTHOR AUTHOR'S ORGANIZ ATION 10/25/2024 [facility] DATE CREATED AUTHOR AUTHOR'S ORGANIZ ATION 10/31/2024 [facility] DATE CREATED AUTHOR AUTHOR'S ORGANIZ ATION 12/10/2024 [facility] dical Specialists [facility] Care Teams (unrecognized sec tion and content) Team Status: Active Member Role Status Dates Giovani Hagen MD Primary Care Provider Active Team Status: Inactive Member Role Status Dates Erwin Hylton MD Attending Provider Active Giovani Hagen MD Primary Care Provider Active Manager Home Improvement Relationship Specialty Start Date End Date [place] [address] [place] [address] PCP - General Family Medicine 03/27/19 Manager Home Improvement Relationship Specialty Start Date End Date HieuGiovani [email or web address] [address] [place] [address] PCP - General Family Medicine 03/27/19 Manager Home Improvement Relationship Specialty Start Date End Date LaupahoehoeGiovani mcclellan Mabalay [address] [place] [address] PCP - General Family Medicine 03/27/19 Manager Home Improvement Relationship Specialty Start Date End Date LaupahoehoeGiovanialay [address] [place] [address] PCP - General Family Medicine 03/27/19 Manager Home Improvement Relationship Specialty Start Date End Date HieuGiovani Mabalay [address] [place] [address] PCP - General Family Medicine 03/27/19 Manager Home Improvement Relationship Specialty Start Date End Date LaupahoehoeGiovani Mabalay [address] [place] [address] PCP - General Family Medicine 03/27/19 Manager Home Improvement Relationship Specialty Start Date End Date HieuGiovani Mabalay [address] [place] [address] PCP - General Family Medicine 03/27/19 Manager Home Improvement Relationship Specialty Start Date End Date Giovani Hagen [address] [place] [address] [place] [address] PCP - General Family Medicine 03/27/19 Manager Home Improvement Relationship Specialty Start Date End Date Giovani Hagen [address] [place] [address] PCP - General Family Medicine 03/27/19 Manager Home Improvement Relationship Specialty Start Date End Date Giovani Hagen [address] [place] [address] PCP - General Family Medicine 03/27/19 Manager Home Improvement Relationship Specialty Start Date End Date Giovani Hagen [address] [address] [place] [address] PCP - General Family Medicine 03/27/19 Manager Home Improvement Relationship Specialty Start Date End Date Niko Hagenbety Rust [address] [place] [address] [place] [address] PCP - General Family Medicine 03/27/19 Manager Home Improvement Relationship Specialty Start Date End Date Giovani Hagen Yocasta [address] [place] [address] PCP - General Family Medicine 03/27/19 Manager Home Improvement Relationship Specialty Start Date End Date Giovani Hagencbarmando [address] [place] [address] PCP - General Family Medicine 03/27/19 Manager Home Improvement Relationship Specialty Start Date End Date Giovani Hagen MD [address] [place] [address] PCP - General Family Medicine 03/27/19 Manager Home Improvement Relationship Specialty Start Date End Date Giovani Hagen MD [address] [place] [address] PCP - General Family Medicine 03/27/19 Manager Home Improvement Relationship Specialty Start Date End Date Giovani Hagen MD [address] [place] [address] PCP - General Family Medicine 03/27/19 Manager Home Improvement Relationship Specialty Start Date End Date Giovani Hagen MD [address] [place] [address] PCP - General Family Medicine 03/27/19 Manager Home Improvement Relationship Specialty Start Date End Date Giovani Hagen MD [address] [place] [address] PCP - General Family Medicine 03/27/19 Manager Home Improvement Relationship Specialty Start Date End Date Giovani Hagen MD [address] [place] [address] PCP - General Family Medicine 03/27/19 Manager Home Improvement Relationship Specialty Start Date End Date Giovani Hagen MD [address] [place] [address] PCP - General Family Medicine 03/27/19 Manager Home Improvement Relationship Specialty Start Date End Date Giovani Hagen MD [address] [place] [address] PCP - General Family Medicine 03/27/19 Manager Home Improvement Relationship Specialty Start Date End Date Giovani Hagen MD [address] [place] [address] PCP - General Family Medicine 03/27/19 Manager Home Improvement Relationship Specialty Start Date End Date Giovani Hagen MD [address] [place] [address] PCP - General Family Medicine 03/27/19 Manager Home Improvement Relationship Specialty Start Date End Date Giovani Hagen MD [address] [place] [address] PCP - General Family Medicine 03/27/19 Manager Home Improvement Relationship Specialty Start Date End Date Giovani Hagen MD [address] [place] [address] PCP - General Family Medicine 03/27/19 Manager Home Improvement Relationship Specialty Start Date End Date Giovani Hagen MD [address] [place] [address] PCP - General Family Medicine 03/27/19 Manager Home Improvement Relationship Specialty Start Date End Date Giovani Hagen MD [address] [place] [address] PCP - Medical [employer] 10/22/18 04/23/99 Giovani Hagen MD [address] [place] [address] PCP - General Family Medicine 08/30/22 Manager Home Improvement Relationship Specialty Start Date End Date Giovani Hagen MD [address] [place] [address] PCP - Medical [employer] 10/22/18 04/23/99 Giovani Hagen MD [address] [place] [address] PCP - General Family Medicine 08/30/22 Manager Home Improvement Relationship Specialty Start Date End Date Giovani Hagen MD [address] [place] [address] PCP - Medical [employer] 10/22/18 04/23/99 Giovani Hagen MD [address] [place] [address] PCP - General Family Medicine 08/30/22 Manager Home Improvement Relationship Specialty Start Date End Date Giovani Hagen MD [address] [place] [address] PCP - Medical [employer] 10/22/18 04/23/99 Giovani Hagen MD [address] [place] [address] PCP - General Family Medicine 08/30/22 Manager Home Improvement Relationship Specialty Start Date End Date Giovani Hagen MD [address] [place] [address] PCP - Medical [employer] 10/22/18 04/23/99 Giovani Hagen MD [address] [place] [address] PCP - General Family Medicine 08/30/22 Manager Home Improvement Relationship Specialty Start Date End Date Giovani Hagen MD [address] [place] [address] PCP - Medical [employer] 10/22/18 04/23/99 Giovani Hagen MD [address] [place] [address] PCP - General Family Medicine 08/30/22 Manager Home Improvement Relationship Specialty Start Date End Date Giovani Hagen MD [address] [place] [address] PCP - Medical [employer] 10/22/18 04/23/99 Giovani Hagen MD [address] [place] [address] PCP - General Family Medicine 08/30/22 Manager Home Improvement Relationship Specialty Start Date End Date Giovani Hagen MD [address] [place] [address] PCP - Medical [employer] 10/22/18 04/23/99 Giovani Hagen MD [address] [place] [address] PCP - General Family Medicine 08/30/22 Manager Home Improvement Relationship Specialty Start Date End Date Giovani Hagen MD [address] [place] [address] PCP - Medical [employer] 10/22/18 04/23/99 Giovani Hagen MD [address] [place] [address] PCP - General Family Medicine 08/30/22 Manager Home Improvement Relationship Specialty Start Date End Date Giovani Hagen MD [address] [place] [address] PCP - Medical [employer] 10/22/18 04/23/99 Giovani Hagen MD [address] [place] [address] PCP - General Family Medicine 08/30/22 Manager Home Improvement Relationship Specialty Start Date End Date Giovani Hagen MD [address] [place] [address] PCP - Medical [employer] 10/22/18 04/23/99 Giovani Hagen MD [address] [place] [address] PCP - General Family Medicine 08/30/22 Manager Home Improvement Relationship Specialty Start Date End Date Giovani Hagen MD [address] [place] [address] PCP - Medical [employer] 10/22/18 04/23/99 Giovani Hagen MD [address] [place] [address] PCP - General Family Medicine 08/30/22 Manager Home Improvement Relationship Specialty Start Date End Date Giovani Hagen MD [address] [place] [address] PCP - Medical [employer] 10/22/18 04/23/99 Giovani Hagen MD [address] [place] [address] PCP - General Family Medicine 08/30/22 Manager Home Improvement Relationship Specialty Start Date End Date Giovani Hagen MD [address] [place] [address] PCP - Medical [employer] 10/22/18 04/23/99 Giovani Hagen MD [address] [place] [address] PCP - General Family Medicine 08/30/22 Manager Home Improvement Relationship Specialty Start Date End Date Giovani Hagen MD [address] [place] [address] PCP - Medical [employer] 10/22/18 04/23/99 Giovani Hagen MD [address] [place] [address] PCP - General Family Medicine 08/30/22 Manager Home Improvement Relationship Specialty Start Date End Date Giovani Hagen MD [address] [place] [address] PCP - Medical [employer] 10/22/18 04/23/99 Giovani Hagen MD [address] [place] [address] PCP - General Family Medicine 08/30/22 Manager Home Improvement Relationship Specialty Start Date End Date Giovani Hagen MD [address] [place] [address] PCP - Medical [employer] 10/22/18 04/23/99 Giovani Hagen MD [address] [place] [address] PCP - General Family Medicine 08/30/22 Manager Home Improvement Relationship Specialty Start Date End Date Giovani Hagne MD [address] [place] [address] PCP - Medical [employer] 10/22/18 04/23/99 Giovani Hagen MD [address] [place] [address] PCP - General Family Medicine 08/30/22 Manager Home Improvement Relationship Specialty Start Date End Date Giovani Hagen MD [address] [place] [address] PCP - Medical [employer] 10/22/18 04/23/99 Giovani Hagen MD [address] [place] [address] PCP - General Family Medicine 08/30/22 Manager Home Improvement Relationship Specialty Start Date End Date Giovani Hagen MD [address] [place] [address] PCP - Medical [employer] 10/22/18 04/23/99 Giovani Hagen MD [address] [place] [address] PCP - General Family Medicine 08/30/22 Manager Home Improvement Relationship Specialty Start Date End Date Giovani Hagen MD [address] [place] [address] PCP - Medical [employer] 10/22/18 04/23/99 Giovani Hagen MD [address] [place] [address] PCP - General Family Medicine 08/30/22 Manager Home Improvement Relationship Specialty Start Date End Date Giovani Hagen MD [address] [place] [address] PCP - Medical [employer] 10/22/18 04/23/99 Giovani Hagen MD [address] [place] [address] PCP - General Family Medicine 08/30/22 Manager Home Improvement Relationship Specialty Start Date End Date Giovani Hagen MD [address] [place] [address] PCP - Medical [employer] 10/22/18 04/23/99 Giovani Hagen MD [address] [place] [address] PCP - General Family Medicine 08/30/22 Manager Home Improvement Relationship Specialty Start Date End Date Giovani Hagen MD [address] [place] [address] PCP - Medical [employer] 10/22/18 04/23/99 Giovani Hagen MD [address] [place] [address] PCP - General Family Medicine 08/30/22 Manager Home Improvement Relationship Specialty Start Date End Date Giovani Hagen MD [address] [place] [address] PCP - General Family Medicine 03/27/19 Manager Home Improvement Relationship Specialty Start Date End Date Giovani Hagen MD [address] [place] [address] [place] [address] PCP - Medical [employer] 10/22/18 04/23/99 Giovani Hagen MD [address] [place] [address] PCP - General Family Medicine 08/30/22 Manager Home Improvement Relationship Specialty Start Date End Date Giovani Hagen MD [address] [place] [address] PCP - General Family Medicine 03/27/19 Deena Lyn, ISABEL [address] [place] [address] Referring Family Medicine 04/03/24 Manager Home Improvement Relationship Specialty Start Date End Date Giovani Hagen MD [address] [place] [address] PCP - General Family Medicine 03/27/19 Deena Lyn, ACCOUNT PROCESSOR [address] [place] [address] Referring Family Medicine 04/03/24 Manager Home Improvement Relationship Specialty Start Date End Date Giovani Hagen MD [address] [place] [address] PCP - Medical [employer] 10/22/18 04/23/99 Giovani Hagen MD [address] [place] [address] PCP - General Family Medicine 08/30/22 Manager Home Improvement Relationship Specialty Start Date End Date Giovani Hagen MD [address] [place] [address] PCP - Medical [employer] 10/22/18 04/23/99 Giovani Hagen MD [address] [place] [address] PCP - General Family Medicine 08/30/22 Manager Home Improvement Relationship Specialty Start Date End Date Giovani Hagen MD [address] [place] [address] PCP - Medical [employer] 10/22/18 04/23/99 Giovani Hagen MD [address] [place] [address] PCP - General Family Medicine 08/30/22 Manager Home Improvement Relationship Specialty Start Date End Date Giovani Hagen MD [address] [place] [address] PCP - Medical [place] 10/22/18 04/23/99 Giovani Hagen MD [address] [place] [address] PCP - General Family Medicine 08/30/22 Manager Home Improvement Relationship Specialty Start Date End Date Giovani Hagen MD [address] [place] [address] PCP - Medical [place] 10/22/18 04/23/99 Giovani Hagen MD [address] [place] [address] PCP - General Family Medicine 08/30/22 Manager Home Improvement Relationship Specialty Start Date End Date Giovani Hagen MD [address] [place] [address] PCP - Medical [employer] 10/22/18 04/23/99 Giovani Hagen MD [address] [place] [address] PCP - General Family Medicine 08/30/22 Manager Home Improvement Relationship Specialty Start Date End Date Giovani Hagen MD [address] [place] [address] PCP - Medical [employer] 10/22/18 04/23/99 Giovani Hagen MD [address] [place] [address] PCP - General Family Medicine 08/30/22 Manager Home Improvement Relationship Specialty Start Date End Date Giovani Hagen MD [address] [place] [address] PCP - General Family Medicine 03/27/19 Deena Lyn CNP [address] [place] [address] Referring Family Medicine 04/03/24 Manager Home Improvement Relationship Specialty Start Date End Date Giovani Hagen MD [address] [place] [address] PCP - Medical [employer] 10/22/18 04/23/99 Giovani Hagen MD [address] [place] [address] PCP - General Family Medicine 08/30/22 Manager Home Improvement Relationship Specialty Start Date End Date Giovani Hagen MD [address] [place] [address] PCP - Medical [place] 10/22/18 04/23/99 Giovani Hagen MD [address] [place] [address] PCP - General Family Medicine 08/30/22 Manager Home Improvement Relationship Specialty Start Date End Date Giovani Hagen MD [address] [place] [address] PCP - Medical [place] [employer] 10/22/18 04/23/99 Giovani Hagen MD [address] [place] [address] PCP - General Family Medicine 08/30/22 Manager Home Improvement Relationship Specialty Start Date End Date Giovani Hagen MD [address] [place] [address] PCP - General Family Medicine 03/27/19 Deena Lyn, ISABEL [address] [place] [address] Referring Family Medicine 04/03/24 Manager Home Improvement Relationship Specialty Start Date End Date Giovani Hagen MD [address] [place] [address] PCP - General Family Medicine 03/27/19 Deena Lyn, ISABEL [address] [place] [address] Referring Family Medicine 04/03/24 Manager Home Improvement Relationship Specialty Start Date End Date Giovani Hagen MD [address] [place] [address] PCP - General Family Medicine 03/27/19 Deena Lyn, ISABEL [address] [place] [address] Referring Family Medicine 04/03/24 Manager Home Improvement Relationship Specialty Start Date End Date Giovani Hagen MD [address] [place] [address] PCP - Medical [place] 10/22/18 04/23/99 Giovani Hagen MD [address] [place] [address] PCP - General Family Medicine 08/30/22 Manager Home Improvement Relationship Specialty Start Date End Date Giovani Hagen MD [address] [place] [address] PCP - Medical [place] 10/22/18 04/23/99 Giovani Hagen MD [address] [place] [address] PCP - General Family Medicine 08/30/22 Manager Home Improvement Relationship Specialty Start Date End Date Giovani Hagen MD [address] [place] [address] PCP - General Family Medicine 03/27/19 Deena Lyn CNP [address] [place] [address] Referring Family Medicine 04/03/24 Manager Home Improvement Relationship Specialty Start Date End Date Giovani Hagen MD [address] [place] [address] PCP - General Family Medicine 03/27/19 Deena Lyn, ISABEL [address] [place] [address] Referring Family Medicine 04/03/24 Manager Home Improvement Relationship Specialty Start Date End Date Giovani Hagen MD [address] [place] [address] PCP - Medical [employer] 10/22/18 04/23/99 Giovani Hagen MD [address] [place] [address] PCP - General Family Medicine 08/30/22 Manager Home Improvement Relationship Specialty Start Date End Date Giovani Hagen MD [address] [place] [address] PCP - Medical [place] 10/22/18 04/23/99 Giovani Hagen MD [address] [place] [address] PCP - General Family Medicine 08/30/22 Manager Home Improvement Relationship Specialty Start Date End Date Giovani Hagen MD [address] [place] [address] PCP - General Family Medicine 03/27/19 Deena Lyn CNP [address] [place] [address] Referring Family Medicine 04/03/24 Manager Home Improvement Relationship Specialty Start Date End Date Giovani Hagen MD [address] [place] [address] PCP - Medical [place] [employer] 10/22/18 04/23/99 Giovani Hagen MD [address] [place] [address] PCP - General Family Medicine 08/30/22 Manager Home Improvement Relationship Specialty Start Date End Date Giovani Hagen MD [address] [place] [address] PCP - Medical [place] [employer] 10/22/18 04/23/99 Giovani Hagen MD [address] [place] [address] PCP - General Family Medicine 08/30/22 Manager Home Improvement Relationship Specialty Start Date End Date Giovani Hagen MD [address] [place] [address] PCP - General Family Medicine 03/27/19 Deena Lyn CNP [address] [place] [address] Referring Family Medicine 04/03/24 Manager Home Improvement Relationship Specialty Start Date End Date Giovani Hagen MD [address] [place] [address] PCP - General Family Medicine 03/27/19 Deena Lyn, ACCOUNT PROCESSOR [address] [place] [address] Referring Family Medicine 04/03/24 Manager Home Improvement Relationship Specialty Start Date End Date Giovani Hagen MD [address] [place] [address] PCP - Medical [employer] 10/22/18 04/23/99 Giovani Hagen MD [address] [place] [address] PCP - General Family Medicine 08/30/22 Manager Home Improvement Relationship Specialty Start Date End Date Giovani Hagen MD [address] [place] [address] PCP - Medical [employer] 10/22/18 04/23/99 Giovani Hagen MD [address] [place] [address] PCP - General Family Medicine 08/30/22 Manager Home Improvement Relationship Specialty Start Date End Date Giovani Hagen MD [address] [place] [address] PCP - Medical [place] 10/22/18 04/23/99 Giovani Hagen MD [address] [place] [address] PCP - General Family Medicine 08/30/22 Manager Home Improvement Relationship Specialty Start Date End Date Giovani Hagen MD [address] [place] [address] PCP - Medical [employer] 10/22/18 04/23/99 Giovani Hagen MD [address] [place] [address] PCP - General Family Medicine 08/30/22 Manager Home Improvement Relationship Specialty Start Date End Date Giovani Hagen MD [address] [place] [address] PCP - Medical [employer] 10/22/18 04/23/99 Giovani Hagen MD [address] [place] [address] PCP - General Family Medicine 08/30/22 Manager Home Improvement Relationship Specialty Start Date End Date Giovani Hagen MD [address] [place] [address] PCP - Medical [place] 10/22/18 04/23/99 Giovani Hagen MD [address] [place] [address] PCP - General Family Medicine 08/30/22 Manager Home Improvement Relationship Specialty Start Date End Date Giovani Hagen MD [address] [place] [address] PCP - Medical [employer] 10/22/18 04/23/99 Giovani Hagen MD [address] [place] [address] PCP - General Family Medicine 08/30/22 Manager Home Improvement Relationship Specialty Start Date End Date Giovani Hagen MD [address] [facility] [address] [place] [address] PCP - Medical [employer] 10/22/18 04/23/99 Giovani Hagen MD [address] [place] [address] PCP - General Family Medicine 08/30/22 Manager Home Improvement Relationship Specialty Start Date End Date Goivani Hagen MD [address] [facility] [address] [place] [address] PCP - General Family Medicine 03/27/19 Deena Lyn, ACCOUNT PROCESSOR [address] [place] [address] Referring Family Medicine 04/03/24 Darwin Starr DO [address] [place] [address] [place] [address] Referring Charge Preparation Technician 07/02/24 Manager Home Improvement Relationship Specialty Start Date End Date Giovani Hagen MD [address] [place] [address] PCP - General Family Medicine 03/27/19 Deena Lyn, ISABEL [address] [place] [address] Referring Family Medicine 04/03/24 Darwin Starr DO [address] [place] [address] [place] [address] Referring Charge Preparation Technician 07/02/24 Manager Home Improvement Relationship Specialty Start Date End Date Giovani Hagen MD [address] [facility] [address] [place] [address] PCP - Medical [employer] 10/22/18 04/23/99 Giovani Hagen MD [address] [facility] [address] [place] [address] PCP - General Family Medicine 08/30/22 Manager Home Improvement Relationship Specialty Start Date End Date Giovani Hagen MD [address] [facility] [address] [place] [address] PCP - Medical [employer] 10/22/18 04/23/99 Giovani Hagen MD [address] [facility] [address] [place] [address] PCP - General Family Medicine 08/30/22 Manager Home Improvement Relationship Specialty Start Date End Date Giovani Hagen MD [address] [place] [address] [place] [address] PCP - Medical [employer] 10/22/18 04/23/99 Giovani Hagen MD [address] [facility] [address] [place] [address] PCP - General Family Medicine 08/30/22 Manager Home Improvement Relationship Specialty Start Date End Date Giovani Hagen MD [address] [facility] [address] [place] [address] PCP - Medical [employer] 10/22/18 04/23/99 Giovani Hagen MD [address] [facility] [address] [place] [address] PCP - General Family Medicine 08/30/22 Manager Home Improvement Relationship Specialty Start Date End Date Giovani Hagen MD [address] [place] [address] PCP - Medical [employer] 10/22/18 04/23/99 Giovani Hagen MD [address] [place] [address] PCP - General Family Medicine 08/30/22 Team [...] Other Provider Active Start: August 17, 2024 Manager Home Improvement Relationship Specialty Start Date End Date Giovani Hagen MD [address] [facility] [address] [place] [address] PCP - Medical [employer] 10/22/18 04/23/99 Giovani Hagen MD [address] [place] [address] [place] [address] PCP - General Family Medicine 08/30/22 Manager Home Improvement Relationship Specialty Start Date End Date Giovani Hagen MD [address] [facility] [address] [place] [address] PCP - Medical [place] [employer] 10/22/18 04/23/99 Giovani Hagen MD [address] [facility] [address] [place] [address] PCP - General Family Medicine 08/30/22 Manager Home Improvement Relationship Specialty Start Date End Date Giovani Hagen MD [address] [facility] [address] [place] [address] PCP - General Family Medicine 03/27/19 Deena Lyn CNP [address] [facility] [address] [place] [address] Referring Family Medicine 04/03/24 Darwin Starr DO [address] [place] [address] [place] [address] Referring Charge Preparation Technician 07/02/24 Manager Home Improvement Relationship Specialty Start Date End Date Giovani Hagen MD [address] [facility] [address] [place] [address] PCP - Medical [place] [employer] 10/22/18 04/23/99 Giovani Hagen MD [address] [facility] [address] [place] [address] PCP - General Family Medicine 08/30/22 Manager Home Improvement Relationship Specialty Start Date End Date Giovani Hagen MD [address] [facility] [address] [place] [address] PCP - Medical [place] [employer] 10/22/18 04/23/99 Giovani Hagen MD [address] [facility] [address] [place] [address] PCP - General Family Medicine 08/30/22 Manager Home Improvement Relationship Specialty Start Date End Date Giovani Hagen MD [address] [facility] [address] [place] [address] PCP - Medical [place] [employer] 10/22/18 04/23/99 Giovani Hagen MD [address] [facility] [address] [place] [address] PCP - General Family Medicine 08/30/22 Manager Home Improvement Relationship Specialty Start Date End Date Giovani Hagen MD [address] [facility] [address] [place] [address] PCP - Medical [place] [employer] 10/22/18 04/23/99 Giovani Hagen MD [address] [facility] [address] [place] [address] PCP - General Family Medicine 08/30/22 Manager Home Improvement Relationship Specialty Start Date End Date Giovani Hagen MD [address] [facility] [address] [place] [address] PCP - General Family Medicine 03/27/19 Deena Lyn, ACCOUNT PROCESSOR [address] [facility] [address] [place] [address] Referring Family Medicine 04/03/24 Darwin Starr DO [address] [place] [address] [place] [address] Referring Charge Preparation Technician 07/02/24 Manager Home Improvement Relationship Specialty Start Date End Date Giovani Hagen MD [address] [place] [address] [place] [address] PCP - Medical [place] [employer] 10/22/18 04/23/99 Giovani Hagen MD [address] [place] [address] [place] [address] PCP - General Family Medicine 08/30/22 Manager Home Improvement Relationship Specialty Start Date End Date Giovani Hagen MD [address] [place] [address] [place] [address] PCP - Medical [place] [employer] 10/22/18 04/23/99 Giovani Hagen MD [address] [place] [address] [place] [address] PCP - General Family Medicine 08/30/22 Manager Home Improvement Relationship Specialty Start Date End Date Giovani Hagen MD [address] [place] [address] [place] [address] PCP - General Family Medicine 03/27/19 Deena Lyn CNP [address] [facility] [address] [place] [address] Referring Family Medicine 04/03/24 Darwin Starr DO [address] [place] [address] [place] [address] Referring Charge Preparation Technician 07/02/24 Manager Home Improvement Relationship Specialty Start Date End Date Giovani Hagen MD [address] [place] [address] [place] [address] PCP - Medical [place] [employer] 10/22/18 04/23/99 Giovani Hagen MD [address] [facility] [address] [place] [address] PCP - General Family Medicine 08/30/22 Manager Home Improvement Relationship Specialty Start Date End Date Giovani Hagen MD [address] [facility] [address] [place] [address] PCP - Medical [place] [employer] 10/22/18 04/23/99 Giovani Hagen MD [address] [facility] [address] [place] [address] PCP - General Family Medicine 08/30/22 Manager Home Improvement Relationship Specialty Start Date End Date Giovani Hagen MD [address] [facility] [address] [place] [address] PCP - Medical [place] [employer] 10/22/18 04/23/99 Giovani Hagen MD [address] [facility] [address] [place] [address] PCP - General Family Medicine 08/30/22 Manager Home Improvement Relationship Specialty Start Date End Date Giovani Hagen MD [address] [facility] [address] [place] [address] PCP - General Family Medicine 03/27/19 Deena Lyn, ACCOUNT PROCESSOR [address] [facility] [address] [place] [address] Referring Family Medicine 04/03/24 Darwin Starr DO [address] [place] [address] [place] [address] Referring Charge Preparation Technician 07/02/24 Manager Home Improvement Relationship Specialty Start Date End Date Giovani Hagen MD [address] [place] [address] [place] [address] PCP - Medical [place] [employer] 10/22/18 04/23/99 Giovani Hagen MD [address] [place] [address] [place] [address] PCP - General Family Medicine 08/30/22 Manager Home Improvement Relationship Specialty Start Date End Date Giovani Hagen MD [address] [place] [address] [place] [address] PCP - [facility] [employer] 10/22/18 04/23/99 Giovani Hagen MD [address] [facility] [address] [place] [address] PCP - General Family Medicine 08/30/22 Manager Home Improvement Relationship Specialty Start Date End Date Giovani Hagen MD [address] [facility] [address] [place] [address] PCP - General Family Medicine 03/27/19 Deena Lyn CNP [address] [place] [address] [place] [address] Referring Family Medicine 04/03/24 Darwin Starr DO [address] [place] [address] [place] [address] Referring Charge Preparation Technician 07/02/24 Manager Home Improvement Relationship Specialty Start Date End Date Giovani Hagen MD [address] [place] [address] [place] [address] PCP - General Family Medicine 03/27/19 [place] C[place] [address] [place] [address] [place] [address] Referring Family Medicine 04/03/24 Darwin Starr DO [address] [place], [place] [address] [place] [address] Referring Charge Preparation Technician 07/02/24 Manager Home Improvement Relationship Specialty Start Date End Date Giovani Hagen MD [address] [place] [address] [place] [address] PCP - Medical [facility] 10/22/18 04/23/99 Giovani Hagen MD [address] [place] [address] [place] [address] PCP - General Family Medicine 08/30/22 Manager Home Improvement Relationship Specialty Start Date End Date Giovani Hagen MD [address] [place] [address] [place] [address] PCP - General Family Medicine 03/27/19 Deena Lyn CNP [address] [place] [address] [place] [address] Referring Family Medicine 04/03/24 Darwin Starr DO [facility] [place] [address] Referring Charge Preparation Technician 07/02/24 Manager Home Improvement Relationship Specialty Start Date End Date Giovani Hagen MD [address] [place] [address] [place] [address] PCP - General Family Medicine 03/27/19 Deena Lyn CNP [address] [place] [address] [place] [address] Referring Family Medicine 04/03/24 Darwin Starr DO [address] [place] [address] [place] [address] Referring Charge Preparation Technician 07/02/24 Manager Home Improvement Relationship Specialty Start Date End Date Giovani Hagen MD [address] [facility] [address] [place] [address] PCP - Medical [place] [employer] 10/22/18 04/23/99 Giovani Hagen MD [address] [facility] [address] [place] [address] PCP - General Family Medicine 08/30/22 Manager Home Improvement Relationship Specialty Start Date End Date Giovani Hagen MD [address] [facility] [address] [place] [address] PCP - Medical [place] [employer] 10/22/18 04/23/99 Giovani Hagen MD [address] [facility] [address] [place] [address] PCP - General Family Medicine 08/30/22 Manager Home Improvement Relationship Specialty Start Date End Date Giovani Hagen MD [address] [facility] [address] [place] [address] PCP - Medical [place] [employer] 10/22/18 04/23/99 Giovani Hagen MD [address] [facility] [address] [place] [address] PCP - General Family Medicine 08/30/22 Source Comments (unrecognize d section and content) In the event this informatio n is protected by the [facility] Confidentiality of Alcohol and Drug Abuse Patient Records regulations: The Federal rules restrict any use of the information to criminally investigate or prosecute any alcohol or drug abuse patient.[facility] the event this information is protected by the Federal Confidentiality of Alcohol and Drug Abuse Patient Records regulations: The Federal rules restrict any use of the information to criminally investigate or prosecute any alcohol or drug abuse patient.[facility] HospitalIn the event this information is protected by the Federal Confidentiality of Alcohol and Drug Abuse Patient Records regulations: The Federal rules restrict any use of the information to criminally investigate or prosecute any alcohol or drug abuse patient.[facility] HospitalIn the event this information is protected by the Federal Confidentiality of Alcohol and Drug Abuse Patient Records regulations: The Federal rules restrict any use of the information to criminally investigate or prosecute any alcohol or drug abuse patient.[facility] HospitalIn the event this information is protected by the Federal Confidentiality of Alcohol and Drug Abuse Patient Records regulations: The Federal rules restrict any use of the information to criminally investigate or prosecute any alcohol or drug abuse patient.[facility] HospitalIn the event this information is protected by the Federal Confidentiality of Alcohol and Drug Abuse Patient Records regulations: The Federal rules restrict any use of the information to criminally investigate or prosecute any alcohol or drug abuse patient.[facility] HospitalIn the event this information is protected by the Federal Confidentiality of Alcohol and Drug Abuse Patient Records regulations: The Federal rules restrict any use of the information to criminally investigate or prosecute any alcohol or drug abuse patient.[facility] HospitalIn the event this information is protected by the Federal Confidentiality of Alcohol and Drug Abuse Patient Records regulations: The Federal rules restrict any use of the information to criminally investigate or prosecute any alcohol or drug abuse patient.[facility] HospitalIn the event this information is protected by the Federal Confidentiality of Alcohol and Drug Abuse Patient Records regulations: The Federal rules restrict any use of the information to criminally investigate or prosecute any alcohol or drug abuse patient.[facility] HospitalIn the event this information is protected by the Federal Confidentiality of Alcohol and Drug Abuse Patient Records regulations: The Federal rules restrict any use of the information to criminally investigate or prosecute any alcohol or drug abuse patient.[facility] HospitalIn the event this information is protected by the Federal Confidentiality of Alcohol and Drug Abuse Patient Records regulations: The Federal rules restrict any use of the information to criminally investigate or prosecute any alcohol or drug abuse patient.[facility] HospitalIn the event this information is protected by the Federal Confidentiality of Alcohol and Drug Abuse Patient Records regulations: The Federal rules restrict any use of the information to criminally investigate or prosecute any alcohol or drug abuse patient.[facility] HospitalIn the event this information is protected by the Federal Confidentiality of Alcohol and Drug Abuse Patient Records regulations: The Federal rules restrict any use of the information to criminally investigate or prosecute any alcohol or drug abuse patient.[facility] HospitalIn the event this information is protected by the Federal Confidentiality of Alcohol and Drug Abuse Patient Records regulations: The Federal rules restrict any use of the information to criminally investigate or prosecute any alcohol or drug abuse patient.[facility] HospitalIn the event this information is protected by the Federal Confidentiality of Alcohol and Drug Abuse Patient Records regulations: The Federal rules restrict any use of the information to criminally investigate or prosecute any alcohol or drug abuse patient.[facility] HospitalIn the event this information is protected by the Federal Confidentiality of Alcohol and Drug Abuse Patient Records regulations: The Federal rules restrict any use of the information to criminally investigate or prosecute any alcohol or drug abuse patient.[facility] HospitalIn the event this information is protected by the Federal Confidentiality of Alcohol and Drug Abuse Patient Records regulations: The Federal rules restrict any use of the information to criminally investigate or prosecute any alcohol or drug abuse patient.[facility] HospitalIn the event this information is protected by the Federal Confidentiality of Alcohol and Drug Abuse Patient Records regulations: The Federal rules restrict any use of the information to criminally investigate or prosecute any alcohol or drug abuse patient.[facility] HospitalIn the event this information is protected by the Federal Confidentiality of Alcohol and Drug Abuse Patient Records regulations: The Federal rules restrict any use of the information to criminally investigate or prosecute any alcohol or drug abuse patient.[facility] HospitalIn the event this information is protected by the Federal Confidentiality of Alcohol and Drug Abuse Patient Records regulations: The Federal rules restrict any use of the information to criminally investigate or prosecute any alcohol or drug abuse patient.[facility] HospitalIn the event this information is protected by the Federal Confidentiality of Alcohol and Drug Abuse Patient Records regulations: The Federal rules restrict any use of the information to criminally investigate or prosecute any alcohol or drug abuse patient.[facility] HospitalIn the event this information is protected by the Federal Confidentiality of Alcohol and Drug Abuse Patient Records regulations: The Federal rules restrict any use of the information to criminally investigate or prosecute any alcohol or drug abuse patient.[facility] HospitalIn the event this information is protected by the Federal Confidentiality of Alcohol and Drug Abuse Patient Records regulations: The Federal rules restrict any use of the information to criminally investigate or prosecute any alcohol or drug abuse patient.[facility] HospitalIn the event this information is protected by the Federal Confidentiality of Alcohol and Drug Abuse Patient Records regulations: The Federal rules restrict any use of the information to criminally investigate or prosecute any alcohol or drug abuse patient.[facility] HospitalIn the event this information is protected by the Federal Confidentiality of Alcohol and Drug Abuse Patient Records regulations: The Federal rules restrict any use of the information to criminally investigate or prosecute any alcohol or drug abuse patient.[facility] HospitalIn the event this information is protected by the Federal Confidentiality of Alcohol and Drug Abuse Patient Records regulations: The Federal rules restrict any use of the information to criminally investigate or prosecute any alcohol or drug abuse patient.[facility] HospitalIn the event this information is protected by the Federal Confidentiality of Alcohol and Drug Abuse Patient Records regulations: The Federal rules restrict any use of the information to criminally investigate or prosecute any alcohol or drug abuse patient.[facility] HospitalIn the event this information is protected by the Federal Confidentiality of Alcohol and Drug Abuse Patient Records regulations: The Federal rules restrict any use of the information to criminally investigate or prosecute any alcohol or drug abuse patient.[facility] HospitalIn the event this information is protected by the Federal Confidentiality of Alcohol and Drug Abuse Patient Records regulations: The Federal rules restrict any use of the information to criminally investigate or prosecute any alcohol or drug abuse patient.[facility] HospitalIn the event this information is protected by the Federal Confidentiality of Alcohol and Drug Abuse Patient Records regulations: The Federal rules restrict any use of the information to criminally investigate or prosecute any alcohol or drug abuse patient.[facility] HospitalIn the event this information is protected by the Federal Confidentiality of Alcohol and Drug Abuse Patient Records regulations: The Federal rules restrict any use of the information to criminally investigate or prosecute any alcohol or drug abuse patient.[facility] HospitalIn the event this information is protected by the Federal Confidentiality of Alcohol and Drug Abuse Patient Records regulations: The Federal rules restrict any use of the information to criminally investigate or prosecute any alcohol or drug abuse patient.[facility] HospitalIn the event this information is protected by the Federal Confidentiality of Alcohol and Drug Abuse Patient Records regulations: The Federal rules restrict any use of the information to criminally investigate or prosecute any alcohol or drug abuse patient.[facility] HospitalIn the event this information is protected by the Federal Confidentiality of Alcohol and Drug Abuse Patient Records regulations: The Federal rules restrict any use of the information to criminally investigate or prosecute any alcohol or drug abuse patient.[facility] HospitalIn the event this information is protected by the Federal Confidentiality of Alcohol and Drug Abuse Patient Records regulations: The Federal rules restrict any use of the information to criminally investigate or prosecute any alcohol or drug abuse patient.[facility] HospitalIn the event this information is protected by the Federal Confidentiality of Alcohol and Drug Abuse Patient Records regulations: The Federal rules restrict any use of the information to criminally investigate or prosecute any alcohol or drug abuse patient.[facility] HospitalIn the event this information is protected by the Federal Confidentiality of Alcohol and Drug Abuse Patient Records regulations: The Federal rules restrict any use of the information to criminally investigate or prosecute any alcohol or drug abuse patient.[facility] HospitalIn the event this information is protected by the Federal Confidentiality of Alcohol and Drug Abuse Patient Records regulations: The Federal rules restrict any use of the information to criminally investigate or prosecute any alcohol or drug abuse patient.[facility] HospitalIn the event this information is protected by the Federal Confidentiality of Alcohol and Drug Abuse Patient Records regulations: The Federal rules restrict any use of the information to criminally investigate or prosecute any alcohol or drug abuse patient.[facility] HospitalIn the event this information is protected by the Federal Confidentiality of Alcohol and Drug Abuse Patient Records regulations: The Federal rules restrict any use of the information to criminally investigate or prosecute any alcohol or drug abuse patient.[facility] HospitalIn the event this information is protected by the Federal Confidentiality of Alcohol and Drug Abuse Patient Records regulations: The Federal rules restrict any use of the information to criminally investigate or prosecute any alcohol or drug abuse patient.[facility] HospitalIn the event this information is protected by the Federal Confidentiality of Alcohol and Drug Abuse Patient Records regulations: The Federal rules restrict any use of the information to criminally investigate or prosecute any alcohol or drug abuse patient.[facility] HospitalIn the event this information is protected by the Federal Confidentiality of Alcohol and Drug Abuse Patient Records regulations: The Federal rules restrict any use of the information to criminally investigate or prosecute any alcohol or drug abuse patient.[facility] HospitalIn the event this information is protected by the Federal Confidentiality of Alcohol and Drug Abuse Patient Records regulations: The Federal rules restrict any use of the information to criminally investigate or prosecute any alcohol or drug abuse patient.[facility] HospitalIn the event this information is protected by the Federal Confidentiality of Alcohol and Drug Abuse Patient Records regulations: The Federal rules restrict any use of the information to criminally investigate or prosecute any alcohol or drug abuse patient.[facility] HospitalIn the event this information is protected by the Federal Confidentiality of Alcohol and Drug Abuse Patient Records regulations: The Federal rules restrict any use of the information to criminally investigate or prosecute any alcohol or drug abuse patient.[facility] HospitalIn the event this information is protected by the Federal Confidentiality of Alcohol and Drug Abuse Patient Records regulations: The Federal rules restrict any use of the information to criminally investigate or prosecute any alcohol or drug abuse patient.[facility] HospitalIn the event this information is protected by the Federal Confidentiality of Alcohol and Drug Abuse Patient Records regulations: The Federal rules restrict any use of the information to criminally investigate or prosecute any alcohol or drug abuse patient.[facility] HospitalIn the event this information is protected by the Federal Confidentiality of Alcohol and Drug Abuse Patient Records regulations: The Federal rules restrict any use of the information to criminally investigate or prosecute any alcohol or drug abuse patient.[facility] HospitalIn the event this information is protected by the Federal Confidentiality of Alcohol and Drug Abuse Patient Records regulations: The Federal rules restrict any use of the information to criminally investigate or prosecute any alcohol or drug abuse patient.[facility] HospitalIn the event this information is protected by the Federal Confidentiality of Alcohol and Drug Abuse Patient Records regulations: The Federal rules restrict any use of the information to criminally investigate or prosecute any alcohol or drug abuse patient.[facility] HospitalIn the event this information is protected by the Federal Confidentiality of Alcohol and Drug Abuse Patient Records regulations: The Federal rules restrict any use of the information to criminally investigate or prosecute any alcohol or drug abuse patient.[facility] HospitalIn the event this information is protected by the Federal Confidentiality of Alcohol and Drug Abuse Patient Records regulations: The Federal rules restrict any use of the information to criminally investigate or prosecute any alcohol or drug abuse patient.[facility] HospitalIn the event this information is protected by the Federal Confidentiality of Alcohol and Drug Abuse Patient Records regulations: The Federal rules restrict any use of the information to criminally investigate or prosecute any alcohol or drug abuse patient.[facility] HospitalIn the event this information is protected by the Federal Confidentiality of Alcohol and Drug Abuse Patient Records regulations: The Federal rules restrict any use of the information to criminally investigate or prosecute any alcohol or drug abuse patient.[facility] HospitalIn the event this information is protected by the Federal Confidentiality of Alcohol and Drug Abuse Patient Records regulations: The Federal rules restrict any use of the information to criminally investigate or prosecute any alcohol or drug abuse patient.[facility] HospitalIn the event this information is protected by the Federal Confidentiality of Alcohol and Drug Abuse Patient Records regulations: The Federal rules restrict any use of the information to criminally investigate or prosecute any alcohol or drug abuse patient.[facility] HospitalIn the event this information is protected by the Federal Confidentiality of Alcohol and Drug Abuse Patient Records regulations: The Federal rules restrict any use of the information to criminally investigate or prosecute any alcohol or drug abuse patient.[facility] Reason for Visit (unrecogniz ed section [...] & PEL[place] [address] [place] [address] [place] [id number] Referral ID Status Reason Start Date Expiration Date V isits Requested Visits Authorized [id number] Closed Auto-Generate d Referral 05/27/2022 06/26/2023 1 [...] Received Outside Medical Records [facility] [place] Reason Comments Received Outside Medical Records Cardio Clearance [facility] [place] Reason Comments Back Pain Reason Comments Dyspareunia [...] ligament of right ankle, subsequent encounter Procedures [place] OFFICE/OUTPATIENT NEW HIGH MDM Giovani Hagen MD [address] [facility] [address] [place] [address] Phone: tel: fax: Prateek Pedraza DPM [address] [facility] [address] [place] [address] Phone: tel: fax: Referral ID Status Reason Start Date Expiration Date V isits Requested Visits Authorized [id number] Closed Specialty Services Required 04/22/2024 10/19/2024 1 [...] [place] 2 post op Reason Comments Painful [place] bleeding with intercourse Reason Comments Post-op 3 [...] Eval Specialty Diagnoses / Procedures Referred By Norma kennedy Referred To Contact [facility] Diagnoses Pelvic floor dysfunction Chronic constipation Procedures CONSULT TO PHYSICAL THERAPY PHYSICAL THERAPY EVALUATION HIGH COMPLEX 45 MINS THERAPEUTIC EXERCISES RE, EA 15 MIN. Mario Harper, EXPLOSIVE OPERATOR GRENADE.ACCOUNT PROCESSOR [address] [place] [address] Phone: tel: fax: [facility] [address] [place] [address] Referral ID Status Reason Start Date Expiration Date Visits Requested Visits Authorized [id number] Authorized Auto-Generat ed Referral 10/23/2023 10/21/2024 25 25 Reason Comments Radio Gen RMP Specialty Diagnoses / Procedures Referred By Contac t Referred To Contact XR IMAGING Diagnoses Pelvic floor dysfunction Chronic constipation Procedures XR ABDOMEN 1V SUPINE RADIOLOGIC EXAM ABDOMEN 1 VIEW Mario Harper, EXPLOSIVE OPERATOR GRENADE.ACCOUNT PROCESSOR [address] [place] [address] Phone: tel: fax: [place] [id number] Referral ID Status Reason Start Date Expiration Date Visits Requested Visits Authorized [id number] Authorized Auto-Generat ed Referral 10/09/2024 11/08/2025 3 3 Reason Comments Med Refill Doxepin, Ativan, Add erall both 10 and 30 mg Goals (unrecognized section and content) Goals may [...] BE BASED ON THE PRIMARY CLINICAL RECORDS. [employer] provides no warranty or guarantee of the accuracy or completeness of information in this document.
[2024-12-12 12:50] LABS: Alanine Aminotransferase 94 U/L (14-59); Albumin Globulin Ratio 1.1; Albumin Level 3.9 g/dL (3.4-5.0); Alkaline Phosphatase 117 U/L (46-116); Anion Gap 10.2; Aspartate Amino Transferase 34 U/L (15-37); Blood Urea Nitrogen 10.0 mg/dL (7.0-18.0); Calcium 8.6 mg/dL (8.5-10.1); Carbon Dioxide 28.3 mmol/L (21.0-32.0); Chloride 103 mmol/L (98-107); Estimated GFR (African America >60 (>=60 mL/min/1.73m^2); Estimated GFR (Non-African Ame >60 (>=60 mL/min/1.73m^2); Globulin 3.7 g/dL; Glucose 115 mg/dL (74-106); Potassium 3.5 mmol/L (3.5-5.1); Sodium 138 mmol/L (136-145); TSH W/ REFLEX FT4 3.223 uIU/mL (0.358-3.740); Total Protein 7.6 g/dL (6.4-8.2)
[2024-12-12 12:54] LABS: Hematocrit 38.1 % (36.0-48.0); Hemoglobin 12.9 g/dL (12.0-16.0); Immature Granulocytes Abs Auto 0.12 10^3/uL (0.00-0.03); Immature Granulocytes Pct Auto 1.2 % (0.0-0.5); Lymphocytes Absolute Auto 2.8 10^3/uL (1.2-3.8); Mean Corpuscular HGB Conc 33.9 g/dL (29.9-35.2); Mean Corpuscular Hemoglobin 32.6 pg (26.7-34.0); Mean Corpuscular Volume 96.2 fL (81.0-99.0); Platelet Count 263 10^3/uL (150-450); Red Blood Count 3.96 10^6/uL (4.20-5.40); White Blood Count 9.7 10^3/uL (4.0-11.0)
[2024-12-12 13:12] LABS: Iron 89.0 ug/dL (50.0-170.0); Percent Iron Saturation 34.2 %; Total Iron Binding Capacity 260.0 ug/dL (250.0-450.0)
[2024-12-12 14:02] LABS: Folate 10.40 ng/mL (8.60-58.90)
[2024-12-13 04:08] LABS: Transferrin 232 mg/dL (192-364); Vitamin B12 862 pg/mL (232-1245)
[2024-12-17 10:08] LABS: Vitamin B6, Plasma 33.5 ug/L (3.4-65.2)
[2024-12-19 17:08] LABS: Vitamin B1 (Thiamine), Blood 126.4 nmol/L (66.5-200.0)
== END 2024-12-12 11:24 | disposition home or self-care (01) ==
LOC: LAB 11:24
PROVIDERS: PCP Family Medicine; Visit Provider Physician Assistant
DX: R74.8 Abnormal levels of other serum enzymes (principal); R63.5 Abnormal weight gain; F10.21 Alcohol dependence, in remission; R53.83 Other fatigue; R73.01 Impaired fasting glucose; E87.6 Hypokalemia
CPT/HCPCS: 36415; 80053; 82306; 82607; 82746; 83036; 83540; 83550; 84207; 84425; 84443; 84466; 85025

== ENCOUNTER 2025-01-06 00:50 | Emergency (ER) | payer OTHER, SELFPAY ==
[2025-01-06] VITALS (33 sets, daily range): BP systolic 107–131; BP diastolic 56–98; PULSE 73–91; TEMP 36.6; O2SAT 96–100; BMI 35.3
--- OUTSIDE RECORDS SUMMARY | 2025-01-06 01:01 | XMS_ITS | CCD ---
Author Organization [facility] ion [facility] Care Team Providers Care Care Services Manager Name Role Phone OZIEL MONTEIRO Referring Unavailable GIOVANI HAGEN Primary Care Unavailable MD Erwin Hylton Attending Provider MD Giovani Hagen Primary Care Provider Giovani Hagen Primary Care Provider Erwin Hylton Unavailable GIOVANI HAGEN Primary Care Physician [phone] PAYTON[address] ., DR SIMON Consulting Unavailabl e [...] HIEU, DR MATUTE Admitting Unavailable ZIEBER, DR LARUIE Kendrick Consulting Unavailable HIEU, DR MATUTE Consulting [...] Unavailable RED, MARIA DOLORES Consulting Unavailable ASAAD, IMMATT Consulting Unavailable HIEU, DR MATUTE Primary Care Unavailable MISC, DR MCKEON Attending Unavailable MISC, DR MCKEON Admitting Unavailable HIEU, DR MATUTE Consulting Unavailable HIEU, DR MATUTE Primary Care Unavailable HIEU, DR MATUTE Attending Unavailable HIEU, DR MATUTE Admitting Unavailable KARASIK ., DR SIMON Consulting Unavailabl e MISC, DR MCKEON Primary Care Unavailable KARASIK ., DR SIOMN Attending Unavailabl e KARASIK ., DR SIMON Admitting Unavailabl e KARASIK ., DR SIMON Consulting Unavailabl e HIEU, DR MATUTE Primary Care Unavailable KARASIK ., DR SIMON Attending Unavailabl e KARASIK ., DR SIMON Admitting Unavailabl e ZIEBER, DR LAURIE Kendrick Consulting Unavailable MD Concetta Immatt Attending Provider MD Giovani Hagen Primary Care Provider Giovani Hagen MD Primary Care Provider BLOOD, MARY Culver Admitting Unavailable BLOOD, MARY Culver Attending Unavailable JACKSON MONTENEGRO Consulting Unavailable SONIYA PATEL Referring Unavailable HIEU, [facility] Primary Care Unavailable MAKENNA AMAYA Consulting Unavailable Giovani Hagen MD [facility] Primary Care Provider Giovani Hagen MD Unavailable Giovani Hagen MD Primary Care Provider Deena Lyn CNP Unavailable SOLO MORA Referring Unavailable HIEUGIOVANI Mcclellan [facility] Unavailable Matty DO, Darwin R Unavailable Giovani Hagen MD Primary Care Provider Peter FRIEDMANDank Admit Provider Dank Green MD Attending Provider Dank Green Admitting Unavailab Rahul Ugarte Attending Unavailable MiamitownGiovani Primary Care Unavailable MARIO HARPER Referring [facility] Primary Care Unavailable HIEU, RUGEN [facility] Primary Care Unavailable ILIANA MERCADO Referring Unavailable Hieu , [facility] Primary Care Provider Deena Lyn APRN Unavailable [phone] HIEU, [facility] Primary Care Unavailable KOCHAR, ARSHNEEL Referring Unavailable KOCHARCHRISHNLAURIEL Referring Unavailable HIEU, [facility] Primary Care Unavailable HIEU, KIRANEN [facility] Primary Care Unavailable ILIANA MERCADO Referring Unavailable ILIANA MERCADO Referring Unavailable [facility] Primary Care Unavailable ILIANA MERCADO Referring Unavailable OBED BHATT Attending Unavailable [facility], [facility] Primary Care Unavailable [facility], [facility] Primary Care Unavailable ILIANA MERCADO Referring Unavailable ANAARPONCHOL Attending Unavailable KOCHAR, ARSHNEEL Referring Unavailable [facility] Primary Care Unavailable DAKHIL, NOMA Referring Unavailable MARIO HARPER Attending Unavailable [facility], [facility] Care Unavailable LYDIA ROCK Attending Unavailable JEREMIAH HARPERINE Referring Unavailable [facility], [facility] Primary Care Unavailable MARIO HARPER Attending Unavailable H[facility], [facility] Primary Care Unavailable JEREMIAH HARPERINE Referring Unavailable [facility], [facility] Primary Care Unavailable LYDIA KELLEY Attending Unavailab le HIEU, [facility] Primary Care Unavailable ILIANA MERCADO Attending Unavailable [facility], [facility] Primary Care Unavailable JAVY BOUDREAUX Referring Unavailable EMMA YING Attending Unavailable HIEU, [facility] Primary Care Unavailable H[facility], [facility] Primary Care Unavailable JAVY BOUDREAUX S Attending Unavailable DARWIN STARR Referring Unavailable HIEU, RUGEN [facility] Primary Care Unavailable JAVY BOUDREAUX Referring Unavailable DOLCE, MILTON Roth Attending Unavailable DOLCE, MILTON Roth Referring Unavailable POPPYAYLEEN Attending Unavailable HIEU, RUGARELY M Attending Unavailable BROWNPRATEEK Attending Unavailable MATTYDARWIN Drew Attending Unavailable DOLCE, MILTON Roth Attending Unavailable DOLCE, MILTON Roth Attending Unavailable DOLCE, MILTON Roth Referring Unavailable HIEU, GIOVANI Bob Attending Unavailable DOLCE, MILTON Roth Attending Unavailable HIEU, GIOVANI Bob Attending Unavailable DOLCE, MILTON Roth Attending Unavailable DOLCE, MILTON Roth Attending Unavailable HIEU, GIOVANI M Attending Unavailable HIEU, GIOVANI Bob Attending Unavailable DOLCE, MILTON Roth Attending Unavailable HIEU, GIOVANI Bob Attending Unavailable HEMMER, SANDY Bob Attending Unavailable RIKI, DEENA Bob Attending Unavailable RIKI, DEENA Bob Attending Unavailable MARY KATEIANSHANNON Fitzgerald Attending Unavailab le HEMMER, SANDY Bob Attending Unavailable DOLCE, MILTON Roth Attending Unavailable DOLBRAN, MILTON Roth Referring Unavailable HIEU, RUGARELY Bob Attending Unavailable CABRERAJATIN MYERS Attending Unavailable DOLCE, MILTON Roth Attending Unavailable MATTYDARWIN Drew Attending Unavailable ZHEN BURGESS Attending Unavailable HIEU, [...] Referring Unavailable HIEU, RUGEN M Attending Unavailable BelaIliana mcclellan Attending Unavailable Madhuri MISHRA Attending Unavailable BelaIliana mcclellan Attending Unavailable Allergies Allergy Classification Reported Allergen(s) Allergy Type Date of Onset Reaction(s) Facility Iodine (and Iodine containting drugs) (2 sources) Iodine Drug Allergy 04-11-20 Swelling, Itching [facility] Iohexol (2 sources) Iohexol Drug Allergy 04-12-20 Itching [facility] (20 sources) Iodine; Translations: [IODINE] Drug Allergy 04-11-20 Swelling, Itching [facility] (20 sources) Iohexol; Translations: [IOHEXOL] Drug Allergy 04-12-20 Itching [facility] (1 source) Cat Propensity to adverse reactions anaphylaxis [facility] Other (15 sources) tree nut, unspecified; Translations: [TREE NUTS] Propensity to adverse reactions 07-11-19 anaphylaxis [facility] Other (1 source) peanut allergenic extract Drug Allergy [facility] Repository (1 source) Cat/Feline Product Derivatives Drug allergy (disorder) 01-08-20 13 [facility] Repository (20 sources) Cat Hair Extract Allergy to substance 12-01-[address] [facility] (20 sources) Iodinated Contrast Media; Translations: [IODINATED CONTRAST MEDIA] Drug Allergy 04-12-20 Hives, Anaphylaxis, Itching [facility] (20 sources) Prednisone & Diphenhydramine Drug Allergy 10-03-19 [facility] (15 sources) Cat Dander; Translations: [cat dander] Drug Allergy 05-03-19 Anaphylaxis [facility] (1 source) tree nut, unspecified Drug allergy (disorder) 05-03-19 [facility] Repository (1 source) No Known Medication Allergies; Translations: [No Known Medication Allergies] Propensity to adverse reactions (disorder) [facility] Repository Medications Current Medications Medication Drug Class(es) Dates Sig (Normalized) Sig (Original) acetaminophen 1000 mg oral tablet (5 sources) Start: 06-12-2018 take 1000 mg by mouth once daily as needed for pain Tylenol 1,000 mg, Oral, Daily, PRN as needed for pain, Refills(s) 0 Start Date: 06/12/18 Status: Ordered Repeat number: 1 acetaminophen 325 mg / HYDROcodone bitartrate 5 mg oral tablet (9 sources) Opioid Agonist Start: 09-06-2024 End: 09-17-2024 take 1 tablet by mouth every four hours as needed HYDROcodone-acetami nophen ([place]) 5-325 MG tablet Take 1 tablet by mouth every 4 (four) hours if needed 09/06/2024 09/17/2024 Discontinued (Therapy completed) Start: 05-09-2024 End: 05-14-2024 take 1 tablet by mouth every six hours for pain HYDROcodone-acetaminophen ([place]) 5-325 MG tablet Indications: Cervical radiculopathy due to degenerative joint disease of spine Take 1 tablet by mouth every 6 (six) hours if needed for severe pain for up to 5 days 20 tablet 05/09/2024 05/14/2024 Active Start: 04-16-2024 End: 04-21-2024 take 1 tablet by mouth every six hours for pain HYDROcodone-acetaminophen ([place]) 5-325 MG tablet Indications: Sprain of anterior talofibular ligament of right ankle, subsequent encounter Take 1 tablet by mouth every 6 (six) hours if needed for severe pain for up to 5 days 20 tablet 04/16/2024 04/21/2024 [id number] 200 actuat albuterol 0.09 mg/actuat metered dose [...] Refills(s) 0 Start Date: 12/17/18 Status: Ordered Repeat number: 1 Start: 12-17-2018 albuterol 2 pu ffs every [...] (20 sources) Central Nervous System Stimulant Start: 12-16-2024 End: 01-15-2025 take 1 capsule by mouth every twenty-four [...] Take with the 30mg tablet. 30 capsule 12/16/2024 01/15/2025 Active Start: 12-16-2024 End: 01-15-2025 take 1 capsule by mouth once daily amphetamine-dextroamphetamine XR (Addera ll XR) 30 MG 24 hr capsule Indications: Attention deficit hyperactivity disorder (ADHD), predominantly inattentive type Take 1 capsule (30 mg) by mouth Daily Do not crush or chew. Take with the 10mg daily 30 capsule 12/16/2024 01/15/2025 Active Start: 08-16-2024 take 1 capsule by mo [facility] once daily in the morning Dextroamphetamine-Amphetamine 10 [...] capsules by mouth at bedtime Bis Subcit Vjd-Qlfbo-Rtmkuzhf (PYLERA) 140-125-125 mg per capsule Take 3 capsules by mouth before meals and at bedtime for 10 days. 120 capsule 0 07/04/2022 07/14/2022 Active Comment on above: Take 3 capsules by m outh before meals and at bedtime for 10 days. buPROPion (20 sources) Aminoketone Start: 12-31-2024 BUPROPION HYDROCHLORIDE ER (XL) 300 MG TB24 BUPROPION HYDROCHLORIDE ER (XL) 300 MG TB24 Start Date: 12/31/24 Status: Ordered Repeat number: 1 Start: 11-22-2024 buPROPion XL ( WELLBUTRIN XL) 300 mg 24 hr tablet 300 mg. 11/22/2024 Active Start: 09-13-2024 take 1 tablet by vanna th every twenty-four hours in the morning buPROPion [...] sources) Atypical Antipsychotic Start: 12-28-2023 take 1 capsule by mouth once daily Cariprazine HCl (Vraylar) 4.5 MG capsule Indications: Bipolar disorder, in partial remission, most recent episode manic (HCC) Take 1 capsule by mouth Daily 100 capsule 3 08/30/2024 Active Start: 12-28-2023 End: 12-19-2023 take 1 mg [...] oral capsule (20 sources) Cephalosporin Antibacterial Start: End: take 1 capsule by mouth in the [...] UTI, # 20 cap(s), Refills(s) 2, Pharmacy: [facility]/pharmacy #[id number], 158, cm, 12/28/23 15:24:00 EDT, Height/Length Dosing, 87, kg, 12/28/23 15:24:00 EDT, Weight Dosing Start Date: 12/28/23 Status: Ordered Quantity: 20.0 Unit: cap(s) Repeat number: 3 Indications: Urinary tract infection, site not specified; Calculus of kidney; Nicotine dependence, unspecified, uncomplicated; Start: 06-29-2022 take 1 tablet by vanna th twice daily, then take 1 tablet by mouth once daily Keflex 500 mg Cap See Instructions, Take 1 tab by mouth twice a day for 10 days. Then take 1 tab once a day for 30 days., # 50 cap(s), Refills(s) 0, Pharmacy: [facility]/pharmacy #[id number], 158, cm, 06/29/22 8:19:00 EST, Height/Length [...] 2024 11:35am clonazePAM 0.5 mg oral tablet (7 sources) Benzodiazepine Start: 04-02-2024 clonazePAM (KL ONOPIN) 0.5 mg tablet Take 1 mg by mouth. 04/02/2024 Active Start: 04-01-2024 End: 12-12-2024 take 1 tablet by mouth in the morning clonazePAM (KlonoPIN) 0.5 MG tablet Indications: Tremors of nervous system Take 1 tablet (0.5 mg) by mouth in the morning and 1 tablet (0.5 mg) before bedtime. 60 tablet 04/01/2024 05/01/2024 Active cloNIDine hydrochloride 0.1 mg oral tablet (20 sources) Central alpha-2 Adrenergic Agonist End: 12-16-2024 cloNIDine (Catapres) 0.1 MG tablet 1 (one) time each day at the same time 12/16/2024 Discontinued (Therapy completed) cyclobenzaprine hydrochloride 5 mg oral tablet (2 sources) Muscle Relaxant Start: 12-30-2024 cyclobenzaprin e (FLEXERIL) 5 mg tablet Indications: pelvic pain/muscle spasm Place 1 tab per vagina up to TID prn pain/spasm, if no effect may try 2 tabs TID prn. 30 tablet 2 12/30/2024 Active Start: 11-27-2024 take 1 tablet by vanna three times daily cyclobenzaprine (FLEXERIL) 5 mg tablet take 1 tablet by mouth three times a day for 14 days 11/27/2024 Active dapagliflozin 10 mg oral tablet (9 sources) Sodium-Glucose Cotransporter 2 Inhibitor Start: 12-16-2024 End: 12-16-2025 Farxiga 10 mg oral tablet 10 mg = 1 tab(s), Refills(s) 0 Start Date: 12/31/24 Status: Ordered Repeat number: 1 diclofenac sodium 75 mg delayed release oral tablet (20 sources) Nonsteroidal Anti-inflammatory Drug Start: 03-19-2024 take 1 tablet by mouth twice daily diclofenac, EC, (VOLTAREN) 75 mg EC tablet 1 tab(s) orally 2 times a day for 30 day(s) 03/19/2024 Active Start: 03-19-2024 End: 05-09-2024 diclofenac (Voltaren) 75 MG EC tablet every 12 (twelve) hours 03/19/2024 05/09/2024 Discontinued (Other) dicyclomine hydrochloride 10 mg oral capsule (13 sources) Anticholinergic Start: 09-26-2024 End: 09-26-2025 take 2 capsules by mouth three times daily as needed dicyclomine (Bentyl) 10 MG capsule Indications: Cramp, abdominal Take 2 capsules (20 mg) by mouth 3 (three) times a day as needed (cramping) 240 capsule 11 09/26/2024 12/12/2024 Discontinued (Other) doxepin hydrochloride 100 mg oral capsule (20 sources) Tricyclic Antidepressant Start: 12-16-2024 End: 01-15-2025 take 2 capsules by mouth at bedtime doxepin (SINEquan) 100 MG capsule Indications: Major depressive disorder, recurrent, moderate (HCC) Take 2 capsules (200 mg) by mouth at bedtime 60 capsule 12/16/2024 01/15/2025 Active Start: 12-16-2024 End: 12-16-2024 take 1 capsule by mouth at bedtime doxepin (SINEquan) 50 MG capsule Indications: Major depressive disorder, recurrent, moderate (HCC) Take 1 capsule (50 mg) by mouth at bedtime 100 capsule 2 12/16/2024 12/16/2024 Discontinued (Reorder) Start: 12-07-2021 End: 11-02-2022 doxepin HCl (DOXEPIN ORAL) 12/07/2021 11/02/2022 Discontinued Start: 12-07-2021 End: 11-02-2022 doxepin HCl (DOXEPIN ORAL) Start: 12-07-2021 doxepin HCl (D OXEPIN ORAL) escitalopram 20 mg oral tablet (20 sources) [...] take 1 puff(s) by inhalation once daily Ozggoeajroe-Jcmwswugn-Zoufqw (Trelegy Ellipta) 100-62.5-25 MCG/ACT aerosol powder Indications: Moderate persistent asthmatic bronchitis with acute exacerbation (HCC) INHALE 1 PUFF DAILY 60 each 2 09/03/2024 Active Start: 04-16-2024 End: 06-25-2024 take 1 puff(s) by inhalation once daily Fsoipngyewj-Dzileqxis-Lmtdfb 100-62.5-25 MCG/ACT aerosol powder Indications: Moderate persistent asthmatic bronchitis with acute exacerbation (CMS/HCC) Inhale 1 puff Daily 1 each 04/16/2024 06/25/2024 Discontinued Start: 05-24-2022 take 1 puff(s) by inhalation once daily Gvqbfozsipn-Umvgrvyjx-Grizvu 100-62.5-25 MCG/ACT aerosol powder INHALE 1 PUFF INTO THE LUNGS EVERY DAY FOR 30 DAYS 05/24/2022 Active Start: 05-24-2022 End: 11-02-2022 TRELEGY ELLIPTA 100-62.5-25 mcg inhalation powder 05/24/2022 11/02/2022 Discontinued fluticasone/umeclidin/vilant er (TRELEGY ELLIPTA INHALATION) (15 sources) fluticasone/umec lidin/vilanter (TRELEGY ELLIPTA INHALATION) Inhale [...] Indications: Anxiety , PTSD (post-traumatic stress disorder) ([facility]) Take 1 capsule (25 mg) by mouth [...] tablet by mouth once daily metoprolol succinate ER (TOPROL XL) 25 mg 24 hr tablet Indications: Palpitation Take 1 tablet by mouth once daily. 30 tablet 2 08/13/2024 Active montelukast 10 mg oral tablet (20 sources) Leukotriene Receptor Antagonist Start: 04-01-2024 End: 04-01-2025 take 1 tablet by mouth at bedtime montelukast (Singulair) 10 MG tablet Indications: Mild intermittent asthma without complication (HCC) Take 1 tablet (10 mg) by mouth at bedtime 30 tablet 11 04/01/2024 04/01/2025 Active OLANZapine 2.5 mg oral tablet (1 source) Atypical Antipsychotic Start: 12-30-2024 OLANZapine (ZYPREXA) 2.5 mg tablet 12/30/2024 Active OXcarbazepine 300 mg oral tablet (20 sources) Anti-epileptic Agent Start: 10-10-2024 End: 12-26-2025 take 1 tablet by mouth in the morning OXcarbazepine (Trileptal) 300 MG tablet Indications: Lumbar radiculopathy , Atypical migraine Take 1 tablet (300 mg) by mouth in the morning and 1 tablet (300 mg) before bedtime. 60 tablet 2 12/26/2024 12/26/2025 Active Start: 10-10-2024 End: 11-16-2024 take 0.5 tablet [...] 04/30/2024 Active prazosin 2 mg oral capsule (16 sources) alpha-Adrenergic Taylor Start: 12-16-2024 End: 12-16-2024 prazosin (MINIPRESS) 2 mg cap Take 2 mg by mouth. 12/16/2024 Active predniSONE 20 mg oral tablet (20 sources) Start: 12-13-2024 End: 12-23-2024 take 1 tablet by mouth once daily predniSONE (Deltasone) 20 MG tablet Indications: Other synovitis and tenosynovitis, right ankle and foot Take 1 tablet (20 mg) by mouth Daily for 10 days 10 tablet 12/13/2024 12/23/2024 Active Start: 10-08-2024 predniSONE (DE LTASONE) 10 mg tablet PLEASE SEE ATTACHED FOR DETAILED DIRECTIONS 10/08/2024 Active Start: 10-08-2024 End: 10-24-2024 take 4 tablets [...] Discontinued propranolol hydrochloride 10 mg oral tablet (20 sources) beta-Adrenergic Taylor Start: 09-30-2024 propra nolol (INDERAL) 10 mg tablet every 12 hours. 09/30/2024 Active Start: 09-30-2024 propranolol (I nderal) 10 MG tablet every 12 (twelve) hours [...] alpha-2 Adrenergic Agonist Start: 07-24-2024 End: 12-12-2024 tiZANidine (ZANAFLEX) 4 mg tablet 10/31/2024 Active traMADol hydrochloride 50 mg oral tablet (10 sources) Opioid Agonist Start: 03-27-2024 End: 04-01-2024 take 2 tablets by mouth every six hours for pain traMADol (Ultram) 50 MG tablet Indications: Acute right ankle pain Take 2 tablets (100 mg) by mouth every 6 (six) hours if needed for severe pain for up to 5 days 40 tablet 03/27/2024 04/01/2024 Active Start: 06-29-2022 traMADol (ULTR AM) 50 mg tablet Take by mouth. 06/29/2022 Active Start: 06-29-2022 tramadol Oral Start Date: 06/29/22 Status: Ordered Repeat number: 1 Start: 06-29-2022 tramadol Oral Start Date: 06/29/22 [...] Refills(s) 0 Start Date: 06/12/18 Status: Ordered Repeat number: 1 Comment on above: Take 0.25 mg by [...] Oral, TID Start Date: 06/29/22 Status: Ordered Repeat number: 1 Start: 06-29-2022 baclofen Oral, TID Start Date: [...] 01/22/2024 Discontinued citalopram 10 mg oral tablet (20 sources) Serotonin Reuptake Inhibitor Start: 08-19-2024 End: 09-02-2024 take 5 tablets by mouth once daily citalopram (CeleXA) 10 MG tablet Take 50 mg by mouth Daily 08/19/2024 09/02/2024 Discontinued (Therapy completed) Start: 08-19-2024 take 1 tablet by vanna th once daily citalopram (CeleXA) 10 MG tablet Take 10 mg by mouth Daily 08/19/2024 Active doxycycline hyclate 100 mg oral capsule [...] 12/19/2023 Discontinued (Other) take 1 capsule by [facility] every twenty-four hours Vyvanse 50 MG [...] Comment on above: TAKE 1 CAPSULE BY [facility] EVERY DAY IN THE [...] vomiting 30 tablet 2 04/01/2024 05/01/2024 Start: 02-28-2023 End: 01-22-2024 take 1 tablet by mouth [...] Date Documented Da te Episodic/Chronic Abdominal pain (18 sources) Right sided abdominal pain; Translations: [Unspecified [...] [Calculus of kidney] Onset: 3 06-29-2022 Episodic Coronary atherosclerosis and other heart disease (20 sources) Atherosclerosis of coronary artery without angina pectoris; Translations: [Atherosclerotic heart disease of [place] coronary artery without angina pectoris] Onset: 2 [...] Resolved: 3 09-23-2022 Chronic E Codes: Fall (1 source) Fall in home Onset: 5 12-31-2024 Endometriosis (1 source) Endometriosis (clinical); Translations: [Other [...] chronic, without hemorrhage or perforation] 08-31-2022 Chronic Genitourinary symptoms and ill-defined conditions (3 sources) Genuine stress incontinence; Translations: [Stress incontinence (female) (male)] Onset: 5 12-30-2024 Chronic Genitourinary symptoms and ill-defined conditions (20 sources) Dysuria; Translations: [Increased frequency of urination] Onset: 3 Resolved: 3 05-01-2019 Episodic Headache; including migraine (20 sources) Tension-type headache; Translations: [Tension-type headache, unspecified, not intractable] Onset: 3 Resolved: 3 02-06-2023 Chronic Hemorrhoids (2 sources) Hemorrhoids; Translations: [Unspecified [...] [Contracture, right ankle] 06-19-2024 Chronic Other aftercare (3 sources) Surgical follow-up; Translations: [Encounter for follow-up examination after completed treatment for conditions other than malignant neoplasm] 05-29-2024 Episodic Other bone disease and musculoskeletal deformities (4 sources) Osteochondritis dissecans of right ankle; Translations: [Osteochondritis dissecans, right ankle and joints of right foot] 05-08-2024 Chronic Other connective tissue disease (7 sources) Pain in right foot; Translations: [Pain in right foot] 05-15-2024 Episodic Other connective tissue disease (20 sources) Pelvic floor dysfunction; Translations: [Other specified disorders of muscle] Onset: 5 10-09-2024 Episodic Other connective tissue disease (7 sources) Spasm; Translations: [Other muscle spasm] Onset: 5 10-11-2024 Episodic Other connective tissue disease (3 sources) Other specified disorders of muscle; Translations: [Pelvic floor dysfunction] Onset: 5 Episodic Other connective tissue disease (3 sources) Synovitis and tenosynovitis; Translations: [Other synovitis and tenosynovitis, right ankle and foot] 12-14-2024 Episodic Other connective tissue disease (3 sources) Enthesopathy of lower limb; Translations: [Other enthesopathy of right foot and ankle] 12-14-2024 Episodic Other connective tissue disease (1 source) Other muscle spasm; Translations: [Muscle spasm] Onset: 5 Episodic Other disorders of stomach and duodenum (20 sources) Gastroparesis syndrome; Translations: [Gastroparesis] Onset: 3 Episodic Other female genital disorders (4 sources) Unspecified dyspareunia; Translations: [UNSPECIFIED DYSPAREUNIA] Onset: 2 Chronic Other female genital disorders (5 sources) Pain in female genitalia on intercourse; Translations: [Unspecified dyspareunia] 03-20-2024 Chronic Other female genital disorders (6 sources) Dyspareunia; Translations: [Other specified dyspareunia] 07-10-2024 Chronic Other female genital disorders (2 sources) Vulvodynia; Translations: [Vulvodynia, unspecified] 12-30-2024 Chronic Other female genital disorders (1 source) Other specified dyspareunia; Translations: [Other specified dyspareunia] Onset: 5 Chronic Other female genital disorders (1 source) Vulvodynia, unspecified; Translations: [Vulvodynia] Onset: 5 Chronic Other female genital disorders (1 source) H/O: dyspareunia; Translations: [Personal history of other diseases of the female genital tract] 04-30-2024 Episodic Other female genital disorders (2 sources) Vaginal dryness; Translations: [Other specified noninflammatory disorders of vagina] 12-30-2024 Episodic Other female genital disorders (1 source) Other specified noninflammatory disorders of vagina; Translations: [Vaginal dryness] Onset: 5 Episodic Other gastrointestinal disorders (20 sources) Irritable bowel syndrome characterized by constipation; Translations: [Irritable bowel syndrome with constipation] Onset: 3 11-02-2022 Chronic Other gastrointestinal disorders (1 source) Chronic idiopathic constipation; Translations: [Chronic idiopathic constipation] 07-10-2024 Chronic Other gastrointestinal disorders (1 source) Irritable bowel syndrome with constipation; Translations: [Irritable bowel syndrome with constipation] Onset: 5 Chronic Other gastrointestinal disorders (1 source) Chronic idiopathic constipation; Translations: [Chronic idiopathic constipation] Onset: 5 Chronic Other gastrointestinal disorders (1 source) History of diverticulitis; Translations: [Personal history of other diseases of the digestive system] Episodic Other gastrointestinal disorders (14 sources) Chronic constipation; Translations: [Other constipation] Onset: [...] pain] 12-12-2024 Chronic Other nervous system disorders (1 source) Other chronic pain; Translations: [Chronic pelvic pain in female] Onset: 5 Chronic Other nervous system disorders (4 sources) Paresthesia of upper limb; Translations: [Anesthesia of skin] 10-08-2024 Episodic Other nervous system disorders (4 sources) Facial paresthesia; Translations: [Anesthesia of skin] 10-08-2024 Episodic Other nervous system disorders (6 sources) Numbness and tingling sensation of skin; [...] nutritional; endocrine; and metabolic disorders (17 sources) Nephrocalcinosis; Translations: [Other disorders of calcium metabolism] Onset: 5 12-12-2024 Chronic Other nutritional; endocrine; and metabolic disorders (10 sources) Obesity caused by energy imbalance; Translations: [Morbid (severe) obesity due to excess calories] Onset: 5 12-16-2024 Chronic Other nutritional; endocrine; and metabolic disorders (10 sources) Obese class II; Translations: [Obesity, class 2] Onset: 5 12-16-2024 Chronic Other screening for suspected conditions (not mental disorders or infectious disease) (20 sources) Encounter for screening for malignant neoplasm of cervix; Translations: [Other specified abnormal findings of blood chemistry] Onset: 2 Episodic Ovarian cyst (20 sources) Other ovarian cyst, unspecified side; Translations: [...] region] Onset: 3 Resolved: 3 12-26-2023 Episodic Substance-related disorders (20 sources) Smoker; Translations: [Nicotine dependence] Onset: 3 Resolved: 3 10-12-2018 Chronic Comment on above: Added secondary to d ocumentation in Social History. Substance-related disorders (1 source) Drug-induced psychosis 12-31-2024 Episodic Superficial injury; contusion (2 sources) Contusion of right ankle; Translations: [Contusion of right ankle, initial encounter] 08-14-2024 Episodic Thyroid disorders (20 sources) Goiter; Translations: [Nontoxic goiter, unspecified] Onset: 3 09-23-2022 Chronic Unclassified (3 sources) LOW BACK PAIN, UNSPECIFIED; Translations: [LOW BACK PAIN, UNSPECIFIED] Onset: 2 Unclassified (20 sources) Patient on antidepressant monitoring plan Onset: 4 05-08-2023 Unclassified (20 sources) Baseline PHQ-9 Onset: 4 05-08-2023 Unclassified (1 source) History of SARS-CoV-2 Onset: 3 12-31-2024 Unclassified (1 source) 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 Onset: 5 12-31-2024 Unclassified (1 source) Sprain of talofibular ligament of right ankle 12-31-2024 Unclassified (1 source) Surgical wound finding Onset: 5 12-31-2024 Urinary tract infections (20 sources) Recurrent urinary tract infection; Translations: [Urinary tract infectious disease] Onset: 3 Resolved: 3 06-29-2022 Episodic Past or Other Problems Problem Classification Problem Date Documented Da te Episodic/Chronic Alcohol-related disorders (20 sources) Alcohol use, unspecified [...] Complications of surgical procedures or medical care (20 sources) Surgical wound finding; Translations: [Disruption of external operation (surgical) wound, not elsewhere classified, sequela] Onset: 5 09-25-2024 Episodic Conditions associated with dizziness or vertigo (20 sources) Dizziness; Translations: [Dizziness and giddiness] Onset: 3 12-13-2022 Episodic E Codes: Fall (20 sources) Unspecified fall, initial encounter; Translations: [Fall in home] Onset: 2 09-10-2024 Episodic Gastrointestinal hemorrhage (3 sources) Gastrointestinal hemorrhage; Translations: [Hemorrhage of anus and rectum] Onset: 5 04-26-2024 Episodic Headache; including migraine (20 sources) Acute headache; Translations: [Acute nonintractable headache] Onset: 3 12-26-2023 Episodic Mood disorders (20 sources) Mood swings; Translations: [Emotional lability] Onset: 3 09-23-2022 Episodic Mood disorders (20 sources) Mood disorders Onset: 5 10-08-2024 Mycoses [...] Onset: 4 Resolved: 5 02-06-2024 Episodic Other liver diseases (20 sources) [...] structures] Onset: 3 Resolved: 3 Chronic Other skin disorders (20 sources) Vesicular eczema; [...] encounter] Onset: 4 Resolved: 5 04-01-2024 Episodic Syncope (5 sources) Syncope and collapse; Translations: [Syncope and collapse] Onset: 4 12-19-2023 Episodic Unclassified (1 source) LOW BACK PAIN, UNSPECIFIED; Translations: [LOW BACK PAIN, UNSPECIFIED] Onset: 2 Unclassified (2 sources) Injury of right ankle 02-06-2024 Unclassified (2 sources) Acute pain of left shoulder 04-03-2024 Viral infection (20 sources) COVID-19; Translations: [Other specified viral infection] Onset: 3 Resolved: 3 02-06-2023 Episodic Results Test Name Value Interpretation Reference Range Facility Urology Office/Clinic Noteon 01-01-2025 Urology Office/Clinic Note Urology Office/Clinic Note Chief Complaint pt here for follow up HPI Staff Pt is a 34 year old female here for follow up with [facility] previous DX: recurrent UTI, kidney stones PT denies pain/burning denies visible blood denies flank pain pt has no urinary issues at this time History of Present Illness I have reviewed and verified the staff HPI to be accurate for this encounter. Review of Systems PHQ Score Initial Depression Screen Score: 0 SCORE no fever, chills, malaise, myalgia. no abdominal pain, nausea, vomiting. Physical Exam Vitals & Measurements T: 36.7 ???C(Tympanic) HR: 88(Peripheral) RR: 16 BP: 138/88 WT: 93.8 kg WT: 206.793 lb General: Well developed, well nourished, in no acute distress. Assessment/Plan PRW pt 1. Recurrent UTI (N39.0: Urinary tract infection, site not specified) S/p Cysto/UD 05/01/19 and 07/05/22 - dilated to 30Fr Pt has had about a half dozen UTIs in the past year. Uses telehealth to get abx. Previously reported UTIs happens every times she has sex, despite urinating afterwards. UA w/ trace-intact blood only today Last visit, she was started on post-coital prophylactic Keflex. Shares she continues to use this which is effective. Denies UTI since last visit. She denies sxs of infection today. She does not need refills on med. She wishes to continue current regimen wo changes at this time. -Cont post-coital prophylactic Keflex. Pt to call for refills. -Increase water intake, avoid bladder irritants -F/U in 1 year, or sooner if needed Ordered: Urnls Dip Stick Auto w/o Microscopy POC 28742 2. Kidney stones (N20.0: Calculus of kidney) S/p R ESWL [facility] 06/29/22 at [facility] - negative Metabolic workup 07/08/22 - slightly elevated Na (149), low output volume (1000 mL) [facility] 11/16/23 - negative [facility] 10/23/24 - negative for stones Reviewed [facility] w/ patient. She denies recent flank pain, gross hematuria or stone passage. She would like to continue to monitor for new stones. -Cont stone prevention diet -F/U in 1 year w/ [facility] and [facility] ([facility]) prior, or sooner if needed Ordered: Urnls Dip Stick Auto w/o Microscopy POC 40447 3. Stress incontinence (N39.3: Stress incontinence (female) (male)) Shares she is seeing specialist at [facility] (Emma Ying NP) for SAM, chronic pelvic pain. Shares she is currently waiting to start formal PFPT. Management per [facility] provider. Also recommend she proceed w/ PFPT given her symptoms. Follow-up With When Contact Information Iliana Cramer PA-C, URL In 1 year Additional Instructions: w/ [facility] and [facility] Patient Education Kidney Stones Problem List/Past Medical History Ongoing Aspartate transaminase level above reference range Dermatophytosis Disorder of carbohydrate metabolism Diverticulosis of colon Dizziness Drug-induced psychosis Dysphagia Exercise induced bronchospasm Fall in home [place] acute pancreatitis Gastroesophageal reflux disease without esophagitis Gastroparesis syndrome Generalized anxiety disorder Goiter H/O: hysterectomy History of cholecystectomy History of pancreatitis History of SARS-CoV-2 Hypercholesterolemia Hyperglycemia Hypersexuality state Hypertensive disorder Idiopathic generalized epilepsy Impaired fasting glycemia Increased blood pressure Inflammation of sacroiliac joint Insomnia Irritable bowel syndrome characterized by constipation Kidney stone Kidney stones Liver enzymes level above reference range Localized edema Lumbar radiculopathy Metabolic dysfunction-associate d steatohepatitis Migraine Mild intermittent asthma Moderate recurrent major depression Mood swings Nephrocalcinosis Obese class II Obesity caused by energy imbalance Obsessive-compulsive disorder Osteoarthritis of knee Overweight Pain of shoulder region Pain of skin Pelvic floor dysfunction Poor concentration Posttraumatic stress disorder Prediabetes 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 Recurrent urinary tract infection Recurrent UTI Sinus tachycardia Smoker Snoring Spasm Sprain of talofibular ligament of right ankle Stress incontinence Surgical follow-up Surgical wound finding Tremor Trichotillomania Vesicular eczema Vitamin D deficiency Weight increased Historical Dysuria Urinary frequency UTI (urinary tract infection) Procedure/Surgical History Cystourethroscopy with dilation of urethral stricture (05/01/2019), Facet Medial Branch Block (09/18/2018), Injection of sacroiliac joint using fluoroscopic guidance (07/31/2018), Injection of sacroiliac joint using fluoroscopic guidance (07/02/2018), section, section, section, Cholecystectomy, Hysterectomy. Medications albuterol BUPROPION HYDROCHLORIDE ER (XL) 300 MG TB24, 0 Farxiga 10 mg oral tablet, 10 mg= 1 tab(s) Keflex 250 mg Cap, See Instructions, 2 refills Tylenol, 1000 mg, Oral, Daily, PRN Vraylar 4.5 mg oral capsule, Oral, Daily Allergies iodine (unknow) So (more content not included)... [facility] Comment on above: Result Comment: Elec tronically Signed By: Iliana Cramer PA-C\.br\Date and Time Signed: 01/01/25 12:08 EDT Ambulatory Visit Summaryon 0 12-31-2024 Ambulatory Visit Summary Ambulatory Visit Summary ORION HARPER :1990 Visit Date:12/31/2024 Ambulatory Visit Instructions Your Diagnosis Recurrent UTI Kidney stones Your Care Team Attending Physician - Iliana Cramer PA-C Primary Care Physician - GIOVANI HAGEN MD This Is Your Medications List [facility] Prescription (BUPROPION HYDROCHLORIDE ER (XL) 300 MG TB24) acetaminophen (Tylenol) albuterol cariprazine (Vraylar 4.5 mg oral capsule) cephalexin (Keflex 250 mg Cap) dapagliflozin (Farxiga 10 mg oral tablet) Procedures Performed Cystourethroscopy with dilation of urethral stricture (05/01/2019), Facet Medial Branch Block (09/18/2018), Injection of sacroiliac joint using fluoroscopic guidance (07/31/2018), Injection of sacroiliac joint using fluoroscopic guidance (07/02/2018), section, section, section, Cholecystectomy, Hysterectomy. Discharge Vitals Temperature (Tympanic) 36.7 ???C Heart Rate (Peripheral) 88 Respiratory Rate 16 Blood Pressure 138/88 Weight 93.8 kg Weight 206.793 lb What to do next Scheduled Follow-Up Appointments Monday2025 3:30 PM EDT With: Iliana Cramer PA-C Where: [facility] [address] [address]- Medications What How Much When Why Instructions Unchanged acetaminophen (Tylenol) 1,000 Milligram By Mouth Every day as needed for as needed for pain Unchanged albuterol 2 puffs every 4 hours as needed for SOB/ wheezing Unchanged cariprazine (Vraylar 4.5 mg oral capsule) By Mouth Every day Unchanged cephalexin (Keflex 250 mg Cap) See instructions Recurrent UTI Kidney stones Smoker 1 cap po after intercourse to prevent UTI Unchanged dapagliflozin (Farxiga 10 mg oral tablet) 1 Tablets Unchanged Misc Prescription (BUPROPION HYDROCHLORIDE ER (XL) 300 MG TB24) 0 Allergies iodine (unknow) Problems Ongoing - Any problem that you are currently receiving treatment for. Aspartate transaminase level above reference range Dermatophytosis Disorder of carbohydrate metabolism Diverticulosis of colon Dizziness Drug-induced psychosis Dysphagia Exercise induced bronchospasm Fall in home [place] acute pancreatitis Gastroesophageal reflux disease without esophagitis Gastroparesis syndrome Generalized anxiety disorder Goiter H/O: hysterectomy History of cholecystectomy History of pancreatitis History of SARS-CoV-2 Hypercholesterolemia Hyperglycemia Hypersexuality state Hypertensive disorder Idiopathic generalized epilepsy Impaired fasting glycemia Increased blood pressure Inflammation of sacroiliac joint Insomnia Irritable bowel syndrome characterized by constipation Kidney stone Kidney stones Liver enzymes level above reference range Localized edema Lumbar radiculopathy Metabolic dysfunction-associate d steatohepatitis Migraine Mild intermittent asthma Moderate recurrent major depression Mood swings Nephrocalcinosis Obese class II Obesity caused by energy imbalance Obsessive-compulsive disorder Osteoarthritis of knee Overweight Pain of shoulder region Pain of skin Pelvic floor dysfunction Poor concentration Posttraumatic stress disorder Prediabetes 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 Dysuria Urinary frequency UTI (urinary tract infection) Patient Survey You may receive a survey via text or e-mail asking about your office visit. Please share your experience with us by completing your survey. We appreciate your feedback and thank you for choosing us for your care. Patient Portal You may access all of your results and other medical record information on our secure patient portal. If you are not signed up for this yet, please contact [employer] at [phone] to get signed up today. Language Information Language assistance services are available as needed. [facility] CNOVon 12-30-2024 CNOV Office Visit ([facility] ) MEREDITHORION Eleuterio ([id number]) 1990 F Date Time Provider Department 12/30/24 9:00 AM EMMA YING [facility] During your visit today, we recorded the following information about you: Blood pressure Weight 132/94 92.9 kg Emma Ying, [place] 12/30/2024 10:35 AM Signed [facility] SECTION FOR CHRONIC PELVIC PAIN OUTPATIENT VISIT DATE 12/30/2024 OUTPATIENT VISIT TYPE CONSULT REFERRING PROVIDER: Javy Boudreaux MD PRIMARY CARE PROVIDER: Giovani Hagen MD, MD PRIMARY REALTY SPECIALIST: Consultation requested by referring provider above for an opinion regarding Orion Eleuterio Harper, and my final recommendations will be communicated back to the requesting physician by way of shared medical record or letter via [place] mail. Recording using XTRM software for draft documentation of the visit was discussed with the patient/authorized licensing representative; all questions welcomed and answered. Patient/authorized licensing representative agreed to proceed CHIEF COMPLAINT/REASON FOR CONSULTATION Chronic pelvic pain evaluation HISTORY OF PRESENT ILLNESS Milly is a 34 year old who presents for evaluation of chronic pelvic pain. The patient is a 34-year-old female with a history of three C-sections, presenting with dyspareunia and back pain. The patient reports a two-year [...] is not in contact with those individuals. Creative Coordinator Hx: (page 3) Menarche: 9 Currently experiences: Not menstruating Duration of dysmenorrhea symptoms: n/a Currently missing school/work: N/A Prior dysmenorrhea treatment: Other, Hysterectomy Current control: Nothing History of STD: Negative history [place] intake LMP: Patient's last menstrual period was 05/25/2015. Cycles: Hysterectomy, Flow: n/a Intermenstrual spotting between periods: N/A Last pap: Pap Results: WNL 03/20/2024, HPV: History of abnormal pap: Yes [place]: (MA intake) Dyspareunia: both insertional and deep [...] Pain characteristics: (page 5) Pain started (month/year): 5748-3232 Inciting event: No obvious cause/do not know Onset: Gradual Duration of pain: 2-5 years Character of pain: Sharp, stabbing Wakes from sleep: No Radiation of pain: No Aggravating factors: [place]/Sexual contact Alleviating factors: Nothing makes it better Bowel habits: (page 12-13) Nause (more content not included)... Normal [facility] XR Foot - right 3 [facility] Result: Radiographs: Three views were taken today AP/MORT/LAT Ankle: No fractures or dislocations seen mild swelling circumferentially around the ankle. Small leanne fracture noted of the medial aspect of the medial malleolus. [facility] XR Foot - right 3 [facility] Study observation (narrative) [facility] MLR HEMOGLOBIN A1Con 025 Glucose [Mass/Vol] 114 mg/dL [facility] HbA1c (Bld) [Mass fraction] 5.6 % 4.5 - 6.2 % [facility] Comment on above: ADA RECOMMENDED LIMI T 4.0 - 6.0 ADA THERAPEUTIC TARGET < 7.0 ACTION SUGGESTED > 7.[address] [facility] No Panel InformationOrdered By: Radiologist Radiology on 10-23-2024 [facility] Work Phone: No Panel Informationon 10-23 Radiology Study observation (narrative) [facility] XR ABDOMEN 1V SUPINEon 10-23 * * [...] No radiopaque markers are noted in the diinb-ue-nvle. IMPRESSION: 0 Sitzmarks markers. The previously noted [...] any questions regarding this interpretation, please call [phone]. If you are unable to reach us at the number above, please feel free to contact [facility] at [phone]. [id number]^[email or web address]^SI ^ACN [facility] Radiology, Radiologist, MD - 10/23/2024 * * *Final Report* * [...] No radiopaque markers are noted in the imbgb-un-zxed. IMPRESSION: 0 Sitzmarks markers. The previously noted [...] any questions regarding this interpretation, please call [phone]. If you are unable to reach us at the number above, please feel free to contact [facility] at [phone]. [id number]^[email or web address]^SI ^ACN [facility] XR ABDOMEN 1V SUPINE * * *Final [...] No radiopaque markers are noted in the xugcm-tk-ktak. IMPRESSION: 0 Sitzmarks markers. The previously noted [...] any questions regarding this interpretation, please call [phone]. If you are unable to reach us at the number above, please feel free to contact [facility] at [phone]. [id number] Normal [facility] XR Abdomen Supine and Uprigh ton 10-23-2024 [...] any questions regarding this interpretation, please call [phone]. If you are unable to reach us at the number above, please feel free to contact [facility] at [phone]. DIVISION OF RADIOLOGY * * *Final Report* [...] No radiopaque markers are noted in the niiox-is-wpzo. DIVISION OF RADIOLOGY Provider, Cccinda Bray - 10/23/2024 * * *Final Report* [...] No radiopaque markers are noted in the celsk-vt-vzex. IMPRESSION IMPRESSION: 0 Sitzmarks markers. The previously [...] any questions regarding this interpretation, please call [phone]. If you are unable to reach us at the number above, please feel free to contact [facility] at [phone]. [facility] MRI HEAD/BRAIN WO/W CONTRon 10-21-[address] [address] Magnetic Resonance Report Signed Patient: ORION HARPER MR#: [id number] : 1990 Acct:[id number] Age/Sex: 34 / F ADM Date: 10/21/24 Loc: MRI Attending Dr: SHANNON DARDEN Ordering Physician: SHANNON DARDEN Date of Service: 10/21/24 Procedure(s): MR head/brain wo/w con Accession Number(s): [id number] cc: GIOVANI HAGEN ; SHANNON DARDEN [address] [address] Patient Name: ORION HARPER MRN: [id number] date: 1990 Sex: F Assigned Patient Location: MRI Current Patient Location: MRI Accession/Order Number: [id number] Exam Date: 10/21/2024 11:17 Report Date: 10/21/2024 [...] Knight M.D. 10/21/2024 11:39 AM Dictation Location: [place] [address] Electronically authenticated by: [id number] Y Date: 10/21/2024 11:39 Dictated By: Sandy Knight M.D. Signed By: 10/21/24 1142 DD/ 1139 TD/TT: Boat Carpenter: [facility] Radiology, Radiologist, - 10/21/2024 [place] [address] Magnetic Resonance Report Signed Patient: ORION HARPER MR#: [id number] : 1990 Acct:[id number] Age/Sex: 34 / F ADM Date: 10/21/24 Loc: MRI Attending Dr: SHANNON DARDEN Ordering Physician: SHANNON DARDEN Date of Service: 10/21/24 Procedure(s): MR head/brain wo/w con Accession Number(s): [id number] cc: GIOVANI HAGEN ; SHANNON DARDEN [place] [id number] Patient Name: ORION HARPER MRN: [facility]:[id number] date: 1990 Sex: F Assigned Patient Location: MRI Current Patient Location: MRI Accession/Order Number: [id number] Exam Date: 10/21/2024 11:17 Report Date: 10/21/2024 [...] Knight M.D. 10/21/2024 11:39 AM Dictation Location: [place] [address] Electronically authenticated by: [id number] Y Date: 10/21/2024 11:39 Dictated By: Sandy Knight M.D. Signed By: 10/21/24 1142 DD/ 1139 TD/TT: Boat Carpenter: [facility] [employer] Radiology Study observation (narrative) [facility] MRI HEAD/BRAIN WO/W CONTROrd ered By: Radiologist Radiology on 10-21-2024 [facility] [employer] Work Phone: XR ABDOMEN 1V SUPINEon 10-21 [...] Sitzmarks markers. IMPRESSION: Sitzmarks markers as described. Boat Carpenter: [facility] Transcribe Date/Time: Oct 28 2024 9:07A Dictated by : ANNITA STILL MD This examination was interpreted and the report reviewed and electronically signed by: ANNITA STILL MD on Oct 28 2024 9:08AM EST [id number] [facility] [id number] 10-11-2024 [id number] HNO ID: [id number] Author: LYDIA ROCK PT, JASMEET Service: ? Author Type: Physical Therapist Type: [id number] Filed: 10/11/2024 15:55 Note Text: [facility] Physical Therapy Plan of Care Certification Patient Name: Orion Harper : 1990 [facility] #: [id number] Date: 10/11/2024 To: Mario Harper APRN* From [...] Planned: 4 Planned Treatment Interventions: Therapeutic exercise (10097), Neuromuscular re-education (78208), Manual therapy (86810), Therapeutic activities (02412), Self-fci management (40677), Patient/Family/Caregi nataliia Education, Body Mechanics Training PLAN [...] have reviewed the treatment plan for Orion Harper, [facility]# [id number] for the period of 10/11/24 -- 01/09/25, established on 10/11/2024. Signature certifies the need for therapy services. Normal [facility] CNTHERAPYon 10-11-2024 CNTHERAPY OT/PT/Speech Visit ([facility]) ORION HARPER ([id number]) 1990 F Date Time Provider Department 10/11/24 2:45 PM LYDIA ROCK Date Time Provider Department Center 10/11/2024 2:45 PM [id number] ROCK [facility] Reason for Visit: PT Eval [...] Date Reviewed: 10/09/2024 Reviewed by: Mario Harper APRN.[employer] - Fully Assessed Prescriptions as of 10/11/2024 [...] 4.5 mg by mouth once daily. Normal [facility] CNOVon 10-09-2024 CNOV Office Visit ([facility] ) ORION HARPER ([id number]) 1990 F Date Time Provider Department 10/09/24 1:00 PM MARIO HARPER [facility] During your visit today, we recorded the following information about you: Pulse Blood pressure Weight 106/minute 112/76 86.6 kg Mario Harper APRN.[employer] 10/09/2024 2:03 PM Signed [facility] October 09, 2024 Orion Harper 34 year old This consult was requested by Dr. Winn and my final recommendations will be communicated to the requesting health care provider by way of the shared medical record for internal providers or letter via the [place] [employer] for external providers. Recording using XTRM software for draft documentation of the visit was discussed with the patient/authorized licensing representative; all questions welcomed and answered. Patient/authorized licensing representative agreed to proceed Chief Complaint: hemorrhoids, [...] pt complaine (more content not included)... Normal [facility] 10-01-[address] [facility] Telephone (TANI) ORION HARPER ([id number]) 1990 F Date Time Provider Department 10/01/24 [...] review and sign Thanks, JW Mcdonough Tracey, JW to Milly Harper TF 07/18/24 4:08 PM [...] Order(s):CONSULT TO COLO-RECTAL SURGERY [] Order #: [id number]: 1 FUTURE Prescriptions as of 10/02/2024 - [...] Status:Closed by ILIANA MERCADO on 10/01/24 Normal [facility] Cholesterol [Mass/volume] in Serum or PlasmaOrdered By: Dank Green on 08-17-2024 Cholesterol [Mass/Vol] Cholesterol [Mass/volume] in Serum or Plasma 140-200 [facility] Comment on above: Chol less than 200 m g/dl low riskChol 201-239 mg/dl borderline riskChol 240 mg/dl and greater high risk Cholesterol in HDL [Mass/vol ume] in Serum or PlasmaOrdered By: Dank Green on 08-17-2024 Cholesterol in HDL [Mass/Vol] Serum or plasma high density lipoprotein (HDL) cholesterol measurement 23-92 [facility] Comment on above: HDL CHOL ATP-III CLA SSIFICATION Cardiovascular RiskHDL > or equal to 60 mg/dL LOWHDL < 40 mg/dL HIGH Cholesterol in LDL Calc [Mas s/Vol]Ordered By: Dank Green on 08-17-2024 Cholesterol in LDL [Mass/Vol] Cholesterol in LDL [Mass/volume] in Serum or Plasma by calculation High 0-100 [facility] Comment on above: LDL ATP III CLASSIFI CATIONLDL less than 100 mg/dL OptimalLDL 100-129 mg/dL Near or above optimalLDL 130-159 mg/dL Borderline highLDL 160-189 mg/dL HighLDL greater than 189 mg/dL Very high Cholesterol in VLDL Calc [Ma ss/Vol]Ordered By: Dank Green on 08-17-2024 Cholesterol in VLDL [Mass/Vol] Cholesterol in VLDL [Mass/volume] in Serum or Plasma by calculation [facility] Lipid Panelon 08-17-2024 Cholesterol [Mass/Vol] 183 mg/dL Normal 140-200 [facility] Comment on above: Result Comment: Chol less than 200 mg/dl low risk Chol 201-239 mg/dl borderline risk Chol 240 mg/dl and greater high risk Performed By: #### T SH3 wRFLX, LIPID, [id number] #### [facility] [address] Cholesterol in HDL [Mass/Vol] 59 mg/dL Normal 23-92 [facility] Comment on above: Result Comment: HDL CHOL ATP-III CLASSIFICATION Cardiovascular Risk HDL > or equal to 60 mg/dL LOW HDL < 40 mg/dL HIGH Performed By: #### T SH3 wRFLX, LIPID, [id number] #### [facility] [address] Cholesterol.total/Chol esterol in HDL [Mass ratio] 3.1 {ratio} Normal <5.0 [facility] Comment on above: Performed By: #### T SH3 wRFLX, LIPID, [id number] #### [facility] [address] LDL Cholesterol,Calculated 101 mg/dL High 0-100 [facility] Comment on above: Result Comment: LDL ATP III CLASSIFICATION LDL less than 100 mg/dL Optimal LDL 100-129 mg/dL Near or above optimal LDL 130-159 mg/dL Borderline high LDL 160-189 mg/dL High LDL greater than 189 mg/dL Very high Performed By: #### T SH3 wRFLX, LIPID, [id number] #### [facility] [address] [place] [id number] [facility] Triglyceride w/Reflex 113 mg/dL Normal 0-149 [facility] Comment on above: Result Comment: TRIG ATP III CLASSIFICATION TRIG less than 150 mg/dL Normal TRIG 150-199 mg/dL Borderline high TRIG 200-500 mg/dL High TRIG greater than 500 mg/dL Very high Standard traceable to the Center for Disease Conrtrol and Prevention (CDC) test method. Performed By: #### T SH3 wRFLX, LIPID, [id number] #### [facility] [address] VLDL CHOLESTEROL 22 mg/dL Normal [facility] Comment on above: Performed By: #### T SH3 wRFLX, LIPID, [id number] #### [facility] [address] Serum or plasma total choles terol/high density lipoprotein (HDL) cholesterol mass ratOrdered By: Dank Green on 08-17-2024 Cholesterol.total/Chol esterol in HDL [Mass ratio] Serum or plasma total cholesterol/high density lipoprotein (HDL) cholesterol mass rat <5.0 [facility] Thyroid Stim Hormone w/Rflxo n 08-17-2024 Thyroid Stim Hormone w/Rflx 3.84 u[iU]/mL Normal 0.45-5.33 [facility] Comment on above: Performed By: #### T SH3 wRFLX, LIPID, [id number] #### [facility] [address] Thyrotropin [Units/volume] i n Serum or PlasmaOrdered By: Dank Green on 08-17-2024 TSH Qn Thyrotropin [Units/volume] in Serum or Plasma 0.45-5.33 [facility] Triglyceride [Mass/volume] i n Serum or PlasmaOrdered By: Dank Green on 08-17-2024 Triglyceride [Mass/Vol] Triglyceride [Mass/volume] in Serum or Plasma 0-149 [facility] Comment on above: TRIG ATP III CLASSIF ICATIONTRIG less than 150 mg/dL NormalTRIG 150-199 mg/dL Borderline highTRIG 200-500 mg/dL High TRIG greater than 500 mg/dL Very highStandard traceable to the Center for Disease Conrtrol and Prevention (CDC) test method. Vitamin D 25 Hydroxy Totalon 08-17-2024 Vitamin D 25 Hydroxy Total 13.6 ng/mL Low 30-100 [facility] Comment on above: Result Comment: MAYA MIN D STATUS 25(OH)VITAMIN D RANGE (ng/mL) Deficient <20 Insufficient 20 to <30 Sufficient 30 to 100 Reference: Umesh MURO,Cheyanne WOLF, Elio MELVIN et al. Evaluation,treatment, and prevention of vitamin D deficiency; an Endocrine Society clinical practice guideline. JCEM. 2010; 96(7):1911-30. PERFORMED BY: [facility] [address] [facility] [place] [id number] PATHOLOGIST [employer] SUPERVISOR PADILLA MOLINA M.D. Performed By: #### T SH3 wRFLX, LIPID, [id number] #### [facility] [address] [place] [id number] [facility] Vitamin D+Metabolites [Mass/ volume] in Serum or PlasmaOrdered By: Dank Green on 08-17-2024 Vitamin D+Metabolites [Mass/Vol] Vitamin D+Metabolites [Mass/volume] in Serum or Plasma Low 30-100 [facility] Comment on above: VITAMIN D STATUS 25( OH)VITAMIN D RANGE (ng/mL) Deficient <20 Insufficient 20 to <30Sufficient 30 to 100Reference: Umesh MURO,Cheyanne WOLF, Elio MELVIN, et al. Evaluation,treatment, and prevention of vitamin D deficiency; an Endocrine Society clinical practice guideline. JCEM. 2010; 96(7):1911-30. CNOVon 08-13-2024 CNOV Office Visit (CARDMN ) ORION HARPER ([id number]) 1990 F Date Time Provider Department 08/13/24 2:30 PM SOLO MORA CARDMN During your visit today, we recorded the following information about you: Pulse Blood pressure Weight Height 92/minute 140/96 81.6 kg 1.6 m Solo Mora MD 08/26/2024 3:56 PM [facility] [place] Meghna Hooker Department of Cardiovascular Medicine SECTION OF CARDIAC PACING and ELECTROPHYSIOLOGY OUTPATIENT VISIT DATE August 13, 2024 OUTPATIENT VISIT TYPE ESTABLISHED PRIMARY CARE PHYSICIAN: Giovani Hagen MD [address] [place] [address] CHIEF COMPLAINT: Syncope HISTORY OF PRESENT ILLNESS:(NURSING [...] for ischemia (more content not included)... Normal [facility] STRESS ECHO TREADMILLon 04-2 STRESS ECHO TREADMILL Stress Marketing/Sales Person Report: Stress Echo [facility] J1-5 Date of service: 08/13/2024 12:34:08 PM OPERATOR Supervising physician: Geremias Higuera MD PATIENT: Name: ORION HARPER Age: 33 years Gender: F The supervising physician was in the department and immediately available. Final -------- Echocardiography Report: Stress Echo [facility] J1-5 Date of service: 08/13/2024 12:34:08 PM OPERATOR Ordering physician: SOLO MORA Indication: Syncope Technologist: [...] the prior echocardiographic exam performed on 04/09/2024 ([place] The major resting echocardiographic findings are comparable. Final -------- Stress ECG Report: Stress Echo [facility] J1-5 Date of service: 08/13/2024 12:34:08 PM OPERATOR Ordering physician: SOLO MORA industrial specialist: Bunny Epperson Fellow: Kiley Gallagher MD [...] estimated e (more content not included)... Normal [facility] ORION HARPER ([id number]) 1990 F Date Time Provider Department 07/26/24 [...] Iliana, Looks like labs were completed at [facility]. Patient is asking about results. [...] Status:Closed by ACACIA GONZALEZ on 08/15/24 Normal [facility] CNOVon 07-10-2024 CNOV Office Visit (OBGY ) ORION HARPER ([id number]) 1990 F Date Time Provider Department 07/10/24 [...] - painful intercourse Referred here by her [facility] [place]. Has been having pain with intercourse for [...] - PELVIC US WHI - CONSULT TO [facility] PELVIC PAIN 2. Pelvic pain in female - ICD9: 625.9, ICD10: R10.2 - counseled. - PELVIC US WHI - CONSULT TO [facility] PELVIC PAIN Javy Boudreaux MD Medical Decision Making: Problems: Moderate: New problem with uncertain prognosis Data: Unique test(s) ordered: 2 Risk: Low: Low risk from testing/treatment Medical Decision Making Level: 3 - Low Referring Provider: DARWIN STARR [[id number]] Allergies As of Date: 07/10/2024 Noted Allergy [...] Diagnosis:Pelvic edward (more content not included)... Normal [facility] Comprehensive metabolic 2000 panelon 07-10-2024 Albumin [Mass/Vol] 4.5 g/dL Normal 3.9-4.9 [facility] Comment on above: Order Comment: Speci men Type: STOOL SPECIMEN Ordering Facility: [facility] Address: [address] [place] [address] Performed By: #### 5 4067-4, CDEIA #### [facility] CLIA [id number] [address] [place] [address] [place] ALP [Catalytic activity/Vol] 130 U/L High 34-123 [facility] Comment on above: Order Comment: Speci men Type: STOOL SPECIMEN Ordering Facility: [facility] Address: [address] [place] [address] Performed By: #### 5 4067-4, CDEIA #### [facility] CLIA [id number] [address] [place] [address] [place] ALT [Catalytic activity/Vol] 141 U/L High 7-38 [facility] Comment on above: Order Comment: Speci men Type: STOOL SPECIMEN Ordering Facility: [facility] Address: [address] [place] [address] Performed By: #### 5 4067-4, CDEIA #### [facility] CLIA [id number] [address] [place] [address] [place] Anion gap [Moles/Vol] 11 mmol/L Normal 8-15 [facility] Comment on above: Order Comment: Speci men Type: STOOL SPECIMEN Ordering Facility: [facility] Address: [address] [place] [address] Performed By: #### 5 4067-4, CDEIA #### [facility] CLIA [id number] [address] [place] [address] [place] AST [Catalytic activity/Vol] 90 U/L High 13-35 [facility] Comment on above: Order Comment: Speci men Type: STOOL SPECIMEN Ordering Facility: [facility] Address: [address] [place] [address] Performed By: #### 5 4067-4, CDEIA #### [facility] CLIA [id number] [address] [place] [address] [place] Bilirubin [Mass/Vol] 0.4 mg/dL Normal 0.2-1.3 [facility] Comment on above: Order Comment: Speci men Type: STOOL SPECIMEN Ordering Facility: [facility] Address: [address] [place] [address] Performed By: #### 5 4067-4, CDEIA #### [facility] CLIA [id number] [address] [place] [address] [place] Calcium [Mass/Vol] 9.4 mg/dL Normal 8.5-10.2 [facility] Comment on above: Order Comment: Speci men Type: STOOL SPECIMEN Ordering Facility: [facility] Address: [address] [place] [address] Performed By: #### 5 4067-4, CDEIA #### [facility] CLIA [id number] [address] [place] [address] [place] Chloride [Moles/Vol] 102 mmol/L Normal 98-107 [facility] Comment on above: Order Comment: Speci men Type: STOOL SPECIMEN Ordering Facility: [facility] Address: [address] [place] [address] Performed By: #### 5 4067-4, CDKAROLA #### [facility] CLIA [id number] [address] [place] [address] [place] CO2 [Moles/Vol] 23 mmol/L Normal 22-30 [facility] Comment on above: Order Comment: Speci men Type: STOOL SPECIMEN Ordering Facility: [facility] Address: [address] [place] [address] Performed By: #### 5 4067-4, CDKAROLA #### [facility] CLIA [id number] [address] [place] [address] [place] Creatinine [Mass/Vol] 0.71 mg/dL Normal 0.58-0.96 [facility] Comment on above: Order Comment: Speci men Type: STOOL SPECIMEN Ordering Facility: [facility] Address: [address] [place] [address] Performed By: #### 5 4067-4, CDEIA #### [facility] CLIA [id number] [address] [place] [address] [place] Creatinine and Glomerular filtration rate.predicted panel (S/P/Bld) 114 mL/min/1.73m??? Normal >=60 [facility] Comment on above: Order Comment: Speci men Type: STOOL SPECIMEN Ordering Facility: [facility] Address: [address] [place] [address] Result Comment: Chely mated Glomerular Filtration Rate [...] reflect actual GFR. Performed By: #### 5 4067-4, CDEIA #### [facility] CLIA [id number] [address] [place] [address] [place] Glucose [Mass/Vol] 121 mg/dL High 74-99 [facility] Comment on above: Order Comment: Speci men Type: STOOL SPECIMEN Ordering Facility: [facility] Address: [address] [place] [address] Result Comment: The [place] Diabetes Association (ADA) provides guidance for cutoff [...] Standards of Medical Care in Diabetes 2016, [place] Diabetes Association. Diabetes Care. 2016.39(Suppl 1). Performed By: #### 5 4067-4, CDEIA #### [facility] CLIA [id number] [address] [place] [address] [place] Potassium [Moles/Vol] 3.6 mmol/L Low 3.7-5.1 [facility] Comment on above: Order Comment: Speci men Type: STOOL SPECIMEN Ordering Facility: [facility] Address: [address] [place] [address] Performed By: #### 5 4067-4, CDEIA #### [facility] CLIA [id number] [address] [place] [address] [place] Protein [Mass/Vol] 7.3 g/dL Normal 6.3-8.0 [facility] Comment on above: Order Comment: Speci men Type: STOOL SPECIMEN Ordering Facility: [facility] Address: [address] [place] [address] Performed By: #### 5 4067-4, CDEIA #### [facility] CLIA [id number] [address] [place] [address] [place] Sodium [Moles/Vol] 136 mmol/L Normal 136-144 [facility] Comment on above: Order Comment: Speci men Type: STOOL SPECIMEN Ordering Facility: [facility] Address: [address] [place] [address] Performed By: #### 5 4067-4, CDEIA #### [facility] CLIA [id number] [address] [place] [address] [place] Urea nitrogen [Mass/Vol] 9 mg/dL Normal 7-21 [facility] Comment on above: Order Comment: Speci men Type: STOOL SPECIMEN Ordering Facility: [facility] Address: [address] [place] [address] Performed By: #### 5 4067-4, CDEIA #### [facility] CLIA [id number] [address] [place] [address] [place] Ferritin SerPl-mCncon 2024 Ferritin [Mass/Vol] 392.0 ng/mL High 14.7-205.1 [facility] Comment on above: Order Comment: Speci men Type: STOOL SPECIMEN Ordering Facility: [facility] Address: [address] [place] [address] Performed By: #### 5 4067-4, CDEIA #### [facility] CLIA [id number] [address] [place] [address] [place] US Pelvison 07-10-2024 [...] Read By: Lulú Washburn M.D. MATERNAL MEDICINE [facility] Radiology Study observation (narrative) [facility] XR ABD 2V SUPINE W UPR/DECUB [...] IMPRESSION: Mild to moderate colonic stool content Boat Carpenter: [facility] Transcribe Date/Time: Jul 13 2024 9:59A Dictated by : BUNNY LINAG MD This examination was interpreted and the report reviewed and electronically signed by: BUNNY LIANG MD on Jul 13 2024 10:05AM EST [id number] Normal [facility] XR Ankle - right 3 Viewson 0 07-03-2024 Imaging Result: Three views were taken today AP/MORT/LAT Ankle: No fractures or dislocations seen joint in good position and alignment [facility] Radiology Study observation (narrative) [facility] RECURRENT VAGINITIS (HTRX)on 06-26-[address] [facility] ATOPOBIUM VAGINAE Not detected [facility] BVAB 2,3 (BACTERIAL VAGINOSIS ASSOCIATED BACTERIA 2, 3); MOBILUNCUS SPP 0 [facility] BVAB 2,3 (BACTERIAL VAGINOSIS ASSOCIATED BACTERIA 2, 3); MOBILUNCUS SPP Not detected [facility] SHARIF ALBICANS, PARAPSILOSIS, TROPICALIS 0 [facility] SHARIF ALBICANS, PARAPSILOSIS, TROPICALIS Not detected [facility] GLABRATA 0 [facility] SHARIF GLABRATA Not detected [facility] SHARIF KRUSEI 0 [facility] SHARIF KRUSEI Not [facility] CHLAMYDIA TRACHOMATIS 0 [facility] CHLAMYDIA TRACHOMATIS Not detected [facility] GARDNERELLA VAGINALIS 0 [facility] GARDNERELLA VAGINALIS Not detected [facility] MEGASPHAERA (TYPES 1, 2) [address] [facility] MEGASPHAERA (TYPES 1, 2) Not detected [facility] MYCOPLASMA GENITALIUM 0 [facility] MYCOPLASMA GENITALIUM Not detected [facility] NEISSERIA GONORRHOEAE 0 [facility] NEISSERIA GONORRHOEAE Not detected [facility] TRICHOMONAS VAGINALIS 0 [facility] TRICHOMONAS VAGINALIS Not detected [facility] MLR HEMOGLOBIN A1Con 025 Glucose [Mass/Vol] 126 mg/dL [facility] HbA1c (Bld) [Mass fraction] 6 % 4.5 - 6.2 % [facility] Comment on above: ADA RECOMMENDED LIMI T 4.0 - 6.0 ADA THERAPEUTIC TARGET < 7.0 ACTION SUGGESTED > 7.[address] [facility] ALL CBC WITH AUTO DIFFon BASOPHILS ABSOLUTE AUTO 0 [facility] Basophils/100 WBC (Bld) 0.4 % 0.2 - 2.0 % [facility] Eosinophils/100 WBC (Bld) 4.4 % 0.9 - 7.0 % [facility] Erythrocyte distribution width (RBC) [Ratio] 13.2 % 11.0 - 15.0 % [facility] Hematocrit (Bld) [Volume fraction] 41.6 % 36.0 - 48.0 % [facility] Hemoglobin (Bld) [Mass/Vol] 14 g/dL 12.0 - 16.0 g/dL [facility] IMMATURE GRANULOCYTES ABS AUTO 0.[address] [facility] Immature granulocytes/100 WBC (Bld) 1.6 % High 0.0 - 0.5 % [facility] Interpretation and review of laboratory results Abnormal [facility] LYMPHOCYTES ABSOLUTE AUTO 2.7 [facility] Lymphocytes/100 WBC (Bld) 33.8 % 20.5 - 60.0 % [facility] MCH (RBC) [Entitic mass] 32.6 pg 26.7 - 34.[address] [facility] MCHC (RBC) [Mass/Vol] 33.7 g/dL 29.9 - 35.2 g/dL [facility] MCV (RBC) [Entitic vol] 96.7 fL 81.0 - 99.[address] [facility] MONOCYTES ABSOLUTE AUTO 0.5 [facility] Monocytes/100 WBC (Bld) 5.9 % 1.7 - 12.0 % [facility] NEUTROPHILS ABSOLUTE AUTO 4.4 [facility] Neutrophils/100 WBC (Bld) 53.9 % 43.0 - 75.0 % [facility] Platelet mean volume (Bld) [Entitic vol] 10.4 fL 9.5 - 13.[address] [facility] TBH EO # 0.4 [facility]H PLT 257 [facility] RBC 4.[address] [facility] WBC [address].1 [facility] C. difficile toxin genes SHEILA +probe Ql (Stl)on 05-23-2024 Interpretation and review of laboratory results Abnormal [facility] CLOSTRIDIUM DIFFICILE TOXIN BY PCRon 05-23-2024 C. difficile toxin genes SHEILA+probe Ql (Stl) Positive Abnormal Negative for C. difficile toxin by PCR [facility] Comment on above: A positive PCR [...] [place] 05-23-2024 [facility] Telephone (TANI) ORION HARPER ([id number]) 1990 F Date Time Provider Department 05/23/24 [...] Itching Date Reviewed: 05/22/2024 Reviewed by: Oziel Darnell, JW - Fully Assessed Reason for Visit: Results [...] Encounter Status:Closed by BENITO SORIANO on 05/24/24 Normal [facility] ANES POSTPROC EVALon 025 ANES POSTPROC EVAL HNO ID: [id number] Author: OBED BHATT APRN.CRNA Service: Anesthesiology Author Type: Nurse Dehydrogenation Supervisor Type: Anesthesia Postprocedure Evaluation Filed: 05/22/2024 14:22 [...] May 22, 2024 TIME: 2:22 PM CSN: [id number] Normal [facility] ANES PRE-OPon 05-22-2024 ANES PRE-OP HNO ID: [id number] Author: OBED BHATT APRN.CRNA Service: Anesthesiology Author Type: Nurse Dehydrogenation Supervisor Type: Anesthesia Preprocedure Evaluation Filed: 05/22/2024 14:23 [...] May 22, 2024 TIME: 2:22 PM CSN: [id number] Normal [facility] PRE-OP HNO ID: [id number] Author: OBED BHATT APRN.CRNA Service: Anesthesiology Author Type: Nurse Dehydrogenation Supervisor Type: Anesthesia Preprocedure Evaluation Filed: 05/22/2024 14:21 Note Text: ANESTHESIOLOGY DAY OF SURGERY NOTE : 1990 Procedure Information Anesthesia Start Date/Time: 05/22/24 1345 Scheduled providers: Carol Winn MD; Obed Bhatt APRN.CERTIFIED TUMOR REGISTRAR; Millicent Schmitz RN Procedure: COLONOSCOPY DIAGNOSTIC Location: [...] May 22, 2024 TIME: 2:18 PM CSN: [id number] Normal [facility] C diff Tox gens Stl Ql SHEILA+p robeon 05-22-2024 C. difficile toxin genes SHEILA+probe Ql (Stl) Positive Abnormal Negative for C. difficile toxin by PCR [facility] Comment on above: Order Comment: Rl basilio Type: STOOL SPECIMEN Ordering Facility: [facility] Address: [address] [place] [address] Result Comment: A po sitive PCR result [...] submission. Performed By: #### 5 4067-4, CDEIA #### [facility] CLIA [id number] [address] [place] [address] [place] CLOSTRIDIUM DIFFICILE TOXIN BY EIAon 05-22-2024 C. difficile toxin A+B IA Ql (Stl) Not detected Normal Negative for C. difficile toxin [facility] Comment on above: Order Comment: Rl basilio Type: STOOL SPECIMEN Ordering Facility: [facility] Address: [address] [place] [address] Result Comment: Toxi n EIA is less sensitive than cell cytotoxin and PCR assays. Clinical correlation of PCR positive/toxin EIA negative results is required to distinguish C. difficle colonization from disease. Performed By: #### 5 4067-4, CDEIA #### [facility] CLIA [id number] [address] [place] [address] [place] COLONOSCOPYon 05-22-2024 [facility] Gastroenterology Gastrointestinal Endoscopy Patient Name: Orion Harper Procedure Date: 05/22/2024 1:40 PM Date of : 1990 Admit Type: Outpatient Age: 33 Room: [place] [address] Gender: Female Note Status: Finalized Attending MD: Carol Winn MD, [id number] Procedure: Colonoscopy Indications: Rectal bleeding, Change in [...] verified by the physician, the nurse, the pit inspector and the heat treat technician in the procedure room. Mental Status [...] bowel preparation was evaluated using the BBPS (Topock Bowel Preparation Scale) with scores of: Right [...] not included)... [facility], Radiologist, - 05/22/2024 [facility] Gastroenterology Gastrointestinal Endoscopy Patient Name: Orion Harper Procedure Date: 05/22/2024 1:40 PM Date of : 1990 Admit Type: Outpatient Age: 33 Room: [place] [address] Gender: Female Note Status: Finalized Attending MD: Carol Winn MD, [id number] Procedure: Colonoscopy Indications: Rectal bleeding, Change in [...] verified by the physician, the nurse, the pit inspector and the heat treat technician in the procedure room. Mental Status [...] bowel preparation was evaluated using the BBPS (Topock Bowel Preparation Scale) with scores of: Right [...] once a da (more content not included)... [employer] COLONOSCOPYOrdered By: [facility] on 05-22-2024 [employer] Work Phone: Colonoscopyon 05-22-2024 Colonoscopy [facility] Gastroenterology Gastrointestinal Endoscopy Patient Name: Orion Harper Procedure Date: 05/22/2024 1:40 PM Date of : 1990 Admit Type: Outpatient Age: 33 Room: [facility] 2 Gender: Female Note Status: Marketing/Sales Person Override Attending MD: Carol Winn MD, [id number] Procedure: Colonoscopy Indications: Rectal bleeding, Change in bowel habits, Diarrhea for 2-3 weeks. Had bronchitis prior to that and was given steroids and antibiotics Providers: Carol Winn MD Patient Profile: This is a 33 year old female. Refer to note in patient chart for documentation of history and physical. Last Colonoscopy: May 2019. Referring Physician: Iliana Mercado (Referring ), Giovani Hagen MD (Referring MD) Medicines: Monitored [...] verified by the physician, the nurse, the pit inspector and the heat treat technician in the procedure room. Mental Status [...] bowel preparation was evaluated using the BBPS (Topock Bowel Preparation Scale) with scores of: Right [...] previously scheduled. (more content not included)... Normal [facility] Flexible sigmoidoscopy study on 05-22-2024 [facility] Gastroenterology Gastrointestinal Endoscopy Patient Name: Orion Harper Procedure Date: 05/22/2024 1:40 PM Date of : 1990 Admit Type: Outpatient Age: 33 Room: [facility] 2 Gender: Female Note Status: Finalized Attending MD: Carol Winn MD, [id number] Procedure: Colonoscopy Indications: Rectal bleeding, Change in [...] verified by the physician, the nurse, the pit inspector and the heat treat technician in the procedure room. Mental Status [...] bowel preparation was evaluated using the BBPS (Topock Bowel Preparation Scale) with scores of: Right [...] were ph (more content not included)... [employer] [facility] Gastrointestinal pathogens i dentified SHEILA+probe Nom (Stl)on 05-22-2024 Campylobacter sp DNA SHEILA+probe Nom (Unsp spec) Not detected Normal Not Detected [facility] Comment on above: Order Comment: Speci men Type: STOOL SPECIMEN Ordering Facility: [facility] Address: [address] [place] [address] Performed By: #### 7 9390-1 #### [facility] CLIA [id number] [address] [place] [address] [place] [address] [place] Salmonella sp DNA SHEILA+probe Ql (Unsp spec) Not detected Normal Not Detected [facility] Comment on above: Order Comment: Speci men Type: STOOL SPECIMEN Ordering Facility: [facility] Address: [address] [place] [address] Performed By: #### 7 9390-1 #### [facility] CLIA [id number] [address] [place] [address] Shiga toxin stx gene SHEILA+probe Nom (Unsp spec) Not detected Normal Not Detected [facility] Comment on above: Order Comment: Speci men Type: STOOL SPECIMEN Ordering Facility: [facility] Address: [address] [place] [address] Performed By: #### 7 9390-1 #### [facility] CLIA [id number] [address] [place] [address] OF [place] Shigella sp DNA SHEILA+probe Ql (Unsp spec) Not detected Normal Not Detected [facility] Comment on above: Order Comment: Speci men Type: STOOL SPECIMEN Ordering Facility: [facility] Address: [address] [place] [address] Performed By: #### 7 9390-1 #### [facility] CLIA [id number] [address] [place] [address] [place] HISTORY PHYSICALon HISTORY PHYSICAL HNO ID: [id number] Author: CAROL WINN MD Service: Gastroenterology Author [...] May 22, 2024 TIME: 1:39 PM Normal [facility] NURSING PROGon 05-22-2024 NURSING PROG HNO ID: [id number] Author: LINDSEY BUCKLEY RN Service: ? Author [...] Buckley RN In Department: AMBULATORY SURGERY Normal [facility] No Panel Informationon 05-22 Radiology Study observation (narrative) [facility] SURGICAL PATHOLOGYon 025 CASE REPORT Normal [facility] Comment on above: Order Comment: Speci men Type: STOOL SPECIMEN Ordering Facility: [facility] Address: [address] [place] [address] Result Comment: Surg ica Pathology Report Case: [id number] Authorizing Provider: Carol Winn MD Collected: 05/22/2024 02:05 PM Ordering Location: Ambulatory Surgery Received: 05/22/2024 08:39 PM Pathologist: Fe Barnes MD Specimens: A) - Colon, Right, Biopsy, r/o microscopic colitis, r/o inflammation B) - Colon, Left, Biopsy, r/o microscopic colitis, r/o inflammation Performed By: #### 5 4067-4, CDEIA #### [facility] CLIA [id number] [address] [place] [address] OF [facility] FINAL DIAGNOSIS Normal [facility] Comment on above: Order Comment: Speci men Type: STOOL SPECIMEN Ordering Facility: [facility] Address: [address] [place] [address] Result Comment: A. C olon, right, biopsy: - Colonic mucosa with no significant pathologic change. B. Colon, left, biopsy: - Colonic mucosa with no significant pathologic change. Performed By: #### 5 4067-4, CDEIA #### [facility] CLIA [id number] [address] [place] [address] [place] OF [facility] FINAL PERFORMING LAB Normal [facility] Comment on above: Order Comment: Speci men Type: STOOL SPECIMEN Ordering Facility: [facility] Address: [address] [place] [address] Result Comment: Diag nostic interpretation performed at: [facility], [address] [place] [address] CLIA# [id number] Insurance Sales Executive: Alhaji Galvez MD Performed By: #### 5 4067-4, ETHAN #### [facility] CLIA [id number] [address] [place] [address] [place] GROSS DESCRIPTION Normal [facility] Comment on above: Order Comment: Speci men Type: STOOL SPECIMEN Ordering Facility: [facility] Address: [address] [place] [address] Result Comment: A. C olon, Right, Biopsy [...] 2024 10:34 PM Gross examination performed at [facility], [address] [place] [address] Performed By: #### 5 4067-4, ETHAN #### [facility] CLIA [id number] [address] [place] [address] [place] XR Ankle - right 3 Viewson 0 05-15-2024 Imaging Result: XRAY: Three views were taken today AP/MORT/LAT Ankle: No fractures or dislocations seen no spurring noted at the lateral ankle ligament complex noted as reported on the MRI [facility] Radiology Study observation (narrative) [facility] ALL CBC WITH AUTO DIFFon BASOPHILS ABSOLUTE AUTO 0 [facility] Basophils/100 WBC (Bld) 0.4 % 0.2 - 2.0 % [facility] Eosinophils/100 WBC (Bld) 2.2 % 0.9 - 7.0 % [facility] Erythrocyte distribution width (RBC) [Ratio] 12.9 % 11.0 - 15.0 % [facility] Hematocrit (Bld) [Volume fraction] 41.2 % 36.0 - 48.0 % [facility] Hemoglobin (Bld) [Mass/Vol] 13.8 g/dL 12.0 - 16.0 g/dL [facility] IMMATURE GRANULOCYTES ABS AUTO 0.[address] [facility] Immature granulocytes/100 WBC (Bld) 1.9 % High 0.0 - 0.5 % [facility] Interpretation and review of laboratory results Abnormal [facility] LYMPHOCYTES ABSOLUTE AUTO 3 [facility] Lymphocytes/100 WBC (Bld) 30.1 % 20.5 - 60.0 % [facility] MCH (RBC) [Entitic mass] 32.7 pg 26.7 - 34.[address] [facility] MCHC (RBC) [Mass/Vol] 33.5 g/dL 29.9 - 35.2 g/dL [facility] MCV (RBC) [Entitic vol] 97.6 fL 81.0 - 99.[address] [facility] MONOCYTES ABSOLUTE AUTO 0.7 [facility] Monocytes/100 WBC (Bld) 6.6 % 1.7 - 12.0 % [facility] NEUTROPHILS ABSOLUTE AUTO 5.8 [facility] Neutrophils/100 WBC (Bld) 58.8 % 43.0 - 75.0 % [facility] Platelet mean volume (Bld) [Entitic vol] 10.8 fL 9.5 - 13.[address] [facility] TBH EO # 0.2 [facility] PLT 206 [facility] RBC 4.[address] [facility] WBC [address].9 [facility] CLINISYNC [facility] CNPNon 05-06-2024 CNPN Telephone (CARDMN) ORION HARPER ([id number]) 1990 F Date Time Provider Department 05/06/24 SOLO MORA During your visit today, we recorded the following information about you: Criss Mccrary 05/06/2024 1:41 PM Signed Echo was faxed to [employer] ([employer]) [phone] AND scanned into outside ep. Patient is [...] Status:Closed by CRISS MCCRARY on 05/06/24 Normal [facility] Liver ultrasound attenuation by transient elastographyon 05-02-2024 [...] Int J Clin Exp Med. 2015 Jan 15;8(10):36064-70. PMID: [id number]; PMCID: [id number]. Ruthann Bob, Juan FANTASMA, Rico M, Cosmo F, Tawnya J, Everardo O, Leyla F, Franci M, Alejandro G, Dorie A, Gianna E, Leyla L, French Mcgovern, Kashmir A, Vicente U, Jodi S, Franc P, Max V, Last V, Leena M, Neo MARIE. Refining the Baveno elastography criteria for the definition of compensated advanced chronic liver disease. J Hepatol. 2020;74(5):8397-2315. doi: 10.1016/j.jhep.2020.1 1.050. Epub 2019Apr 01. PMID: [id number]. Izabel Bob, Chastity Moran, Martha Bob, Xiao Bob, Joon Stevens, Nuria Roth, Trevin Roth, Trixie Kendrick. AASLD practice guidance on the clinical assessment and management of nonalcoholic fatty liver disease. Hepatology. 2022;77(5):7719-5673. doi:10.1097/HEP.09125 [id number] [facility] Radiology Study observation (narrative) [facility] Radiology Study observation (narrative) [facility] A1AT SerPl-mCncon 04-26-2024 Alpha 1 antitrypsin [Mass/Vol] 123 mg/dL Normal 90-200 [facility] Comment on above: Order Comment: Rl basilio Type: BLOOD SPECIMEN Ordering Facility: [facility] Address: [address] [place] [address] Performed By: #### 1 825-9, 4-4 #### [facility] CLIA [id number] [address] [place] [address] [place] AFP SerPl-mCncon 04-26-2024 AFP [Mass/Vol] 3.01 ng/mL Normal <9.00 [facility]han Comment on above: Order Comment: Rl basilio Type: BLOOD SPECIMEN Ordering Facility: [facility] Address: [address] [place] [address] Result Comment: The Alpha-Fetoprotein test was performed using the S[employer] Athlete Builderel DxI immunoenzymatic assay. Results obtained with different assay methods or kits cannot be used interchangeably. Performed By: #### 1 834-1 #### [facility] CLIA [id number] [address] [place] [address] [place] DENY BY IFA WITH REFLEXon Nuclear Ab Ql (S) Negative Normal Negative [place] [facility] Comment on above: Order Comment: Rl basilio Type: BLOOD SPECIMEN Ordering Facility: [facility] Address: [address] [place] [address] Result Comment: Anti -nuclear antibody test is used as an aid in diagnosis of systemic autoimmune diseases. Where positive and clinically warranted, follow-up using disease-specific testing is recommended. Low positive titers are not uncommon with advanced age, certain chronic infections, and malignancies among others. Test methodology: Indirect fluorescence immunoassay (IFA) using HEp-2 cells. Performed By: #### A NAIFR #### [facility] CLIA [id number] [address] [place], [place] [address] [id number] [place] CBC W Auto Differential pane l (Bld)on 04-26-2024 Basophils (Bld) [#/Vol] 0.06 10*3/uL [facility] Differential cell count method Nom (Bld) Auto [facility] Eosinophils (Bld) [#/Vol] [facility] Immature granulocytes (Bld) [#/Vol] 0.33 10*3/uL High [facility] Immature granulocytes/100 WBC (Bld) 2.7 % [facility] Lymphocytes (Bld) [#/Vol] 2.80 10*3/uL [facility] MCH (RBC) [Entitic mass] 32.0 pg 26.0 - 34.0 pg [facility] Monocytes (Bld) [#/Vol] 0.41 10*3/uL [facility] Neutrophils (Bld) [#/Vol] 8.78 10*3/uL High [facility] Nucleated RBC (Bld) [#/Vol] [facility] Nucleated RBC/100 WBC (Bld) [Ratio] 0.0 % /100 WBC [facility] Platelet mean volume (Bld) [Entitic vol] 10.8 fL 9.0 - 12.7 fL [facility] Platelets (Bld) [#/Vol] 271 10*3/uL [facility] WBC (Bld) [#/Vol] 12.39 10*3/uL High [facility] Basophils (Bld) [#/Vol] 0.06 10*3/uL Normal <0.11 [facility] Comment on above: Order Comment: Speci men Type: BLOOD SPECIMEN Ordering Facility: [facility] Address: [address] [place], [place] [address] Performed By: #### 1 560-2, 8842-4 #### [facility] CLIA [id number] [address] [place] [address] [place] Basophils/100 WBC (Bld) 0.5 % Normal [facility] Comment on above: Order Comment: Speci men Type: BLOOD SPECIMEN Ordering Facility: [facility] Address: [address] [place] [address] Performed By: #### 1 8208-30, 2063-07 #### [facility] CLIA [id number] [address] [place] [address] [place] Differential cell count method Nom (Bld) Auto Normal [facility] Comment on above: Order Comment: Speci men Type: BLOOD SPECIMEN Ordering Facility: [facility] Address: [address] [place] [address] Performed By: #### 1 , 2063-07 #### [facility] CLIA [id number] [address] [place] [address] [place] Eosinophils (Bld) [#/Vol] 10*3/uL Normal <0.46 [facility] Comment on above: Order Comment: Speci men Type: BLOOD SPECIMEN Ordering Facility: [facility] Address: [address] [place] [address] Performed By: #### 1 , 2063-07 #### [facility] CLIA [id number] [address] [place] [address] [place] Eosinophils/100 WBC (Bld) 0.1 % Normal [facility] Comment on above: Order Comment: Speci men Type: BLOOD SPECIMEN Ordering Facility: [facility] Address: [address] [place] [address] Performed By: #### 1 , 2063-07 #### [facility] CLIA [id number] [address] [place] [address] [place] Erythrocyte distribution width (RBC) [Ratio] 12.5 % Normal 11.5-15.0 [facility] Comment on above: Order Comment: Speci men Type: BLOOD SPECIMEN Ordering Facility: [facility] Address: [address] [place] [address] Performed By: #### 1 8208-30, 2063-07 #### [facility] CLIA [id number] [address] [place] [address] [place] Hematocrit (Bld) [Volume fraction] 46.1 % High 36.0-46.0 [facility] Comment on above: Order Comment: Speci men Type: BLOOD SPECIMEN Ordering Facility: [facility] Address: [address] [place] [address] Performed By: #### 1 829, 2063-07 #### [facility] CLIA [id number] [address] [place] [address] [place] Hemoglobin (Bld) [Mass/Vol] 15.5 g/dL Normal 11.5-15.5 [facility] Comment on above: Order Comment: Speci men Type: BLOOD SPECIMEN Ordering Facility: [facility] Address: [address] [place] [address] Performed By: #### 1 8208-30, 2063-07 #### [facility] CLIA [id number] [address] [place] [address] [place] Immature granulocytes (Bld) [#/Vol] 0.33 10*3/uL High <0.10 [facility] Comment on above: Order Comment: Speci men Type: BLOOD SPECIMEN Ordering Facility: [facility] Address: [address] [place] [address] Performed By: #### 1 825-9, 2063-07 #### [facility] CLIA [id number] [address] [place] [address] [place] Immature granulocytes/100 WBC (Bld) 2.7 % Normal [facility] Comment on above: Order Comment: Speci men Type: BLOOD SPECIMEN Ordering Facility: [facility] Address: [address] [place] [address] Performed By: #### 1 829, 2063-07 #### [facility] CLIA [id number] [address] [place] [address] [place] Lymphocytes (Bld) [#/Vol] 2.80 10*3/uL Normal 1.00-4.00 [facility] Comment on above: Order Comment: Speci men Type: BLOOD SPECIMEN Ordering Facility: [facility] Address: [address] [place] [address] Performed By: #### 1 8208-30, 2063-07 #### [facility] CLIA [id number] [address] [place] [address] [place] Lymphocytes/100 WBC (Bld) 22.6 % Normal [facility] Comment on above: Order Comment: Speci men Type: BLOOD SPECIMEN Ordering Facility: [facility] Address: [address] [place] [address] Performed By: #### 1 , 2063-07 #### [facility] CLIA [id number] [address] [place] [address] [place] MCH (RBC) [Entitic mass] 32.0 pg Normal 26.0-34.0 [facility] Comment on above: Order Comment: Speci men Type: BLOOD SPECIMEN Ordering Facility: [facility] Address: [address] [place] [address] Performed By: #### 1 8208-30, 2063-07 #### [facility] CLIA [id number] [address] [place] [address] [place] MCHC (RBC) [Mass/Vol] 33.6 g/dL Normal 30.5-36.0 [facility] Comment on above: Order Comment: Speci men Type: BLOOD SPECIMEN Ordering Facility: [facility] Address: [address] [place] [address] Performed By: #### 1 8208-30, 2063-07 #### [facility] CLIA [id number] [address] [place] [address] [place] MCV (RBC) [Entitic vol] 95.1 fL Normal 80.0-100.0 [facility] Comment on above: Order Comment: Speci men Type: BLOOD SPECIMEN Ordering Facility: [facility] Address: [address] [place] [address] Performed By: #### 1 829, 2063-07 #### [facility] CLIA [id number] [address] [place] [address] [place] Monocytes (Bld) [#/Vol] 0.41 10*3/uL Normal <0.87 [facility] Comment on above: Order Comment: Speci men Type: BLOOD SPECIMEN Ordering Facility: [facility] Address: [address] [place] [address] Performed By: #### 1 8208-30, 2063-07 #### [facility] CLIA [id number] [address] [place] [address] [place] Monocytes/100 WBC (Bld) 3.3 % Normal [facility] Comment on above: Order Comment: Speci men Type: BLOOD SPECIMEN Ordering Facility: [facility] Address: [address] [place] [address] Performed By: #### 1 8208-30, 2063-07 #### [facility] CLIA [id number] [address] [place] [address] [place] Neutrophils (Bld) [#/Vol] 8.78 10*3/uL High 1.45-7.50 [facility] Comment on above: Order Comment: Speci men Type: BLOOD SPECIMEN Ordering Facility: [facility] Address: [address] [place] [address] Performed By: #### 1 829, 2063-07 #### [facility] CLIA [id number] [address] [place] [address] [place] Neutrophils/100 WBC (Bld) 70.8 % Normal [facility] Comment on above: Order Comment: Speci men Type: BLOOD SPECIMEN Ordering Facility: [facility] Address: [address] [place] [address] Performed By: #### 1 829, 2063-07 #### [facility] CLIA [id number] [address] [place] [address] [place] Nucleated RBC (Bld) [#/Vol] 10*3/uL Normal <0.01 [facility] Comment on above: Order Comment: Speci men Type: BLOOD SPECIMEN Ordering Facility: [facility] Address: [address] [place] [address] Performed By: #### 1 829, 2063-07 #### [facility] CLIA [id number] [address] [place] [address] [place] Nucleated RBC/100 WBC (Bld) [Ratio] 0.0 /100 WBC Normal [facility] Comment on above: Order Comment: Speci men Type: BLOOD SPECIMEN Ordering Facility: [facility] Address: [address] [place] [address] Performed By: #### 1 8208-30, 2063-07 #### [facility] CLIA [id number] [address] [place] [address] [place] Platelet mean volume (Bld) [Entitic vol] 10.8 fL Normal 9.0-12.7 [facility] Comment on above: Order Comment: Speci men Type: BLOOD SPECIMEN Ordering Facility: [facility] Address: [address] [place] [address] Performed By: #### 1 825-9, 2063-07 #### [facility] CLIA [id number] [address] [place] [address] [place] Platelets (Bld) [#/Vol] 271 10*3/uL Normal 150-400 [facility] Comment on above: Order Comment: Speci men Type: BLOOD SPECIMEN Ordering Facility: [facility] Address: [address] [place] [address] Performed By: #### 1 825-9, 2063-07 #### [facility] CLIA [id number] [address] [place] [address] [place] RBC (Bld) [#/Vol] 4.85 10*6/uL Normal 3.90-5.20 [facility] Comment on above: Order Comment: Speci men Type: BLOOD SPECIMEN Ordering Facility: [facility] Address: [address] [place] [address] Performed By: #### 1 825-9, 2063-07 #### [facility] CLIA [id number] [address] [place] [address] [place] WBC (Bld) [#/Vol] 12.39 10*3/uL High 3.70-11.00 [facility] Comment on above: Order Comment: Speci men Type: BLOOD SPECIMEN Ordering Facility: [facility] Address: [address] [place] [address] Performed By: #### 1 825-9, 2063-07 #### [facility] CLIA [id number] [address] [place] [address] [place] [facility] CBC W AUTO DIFF BLDon [facility] BASOPHILS # BLD AUTO 0.06 [facility] DIFFERENTIAL METHOD BLD Auto [facility] EOSINOPHIL # BLD AUTO <0.03 [facility] LYMPHOCYTES # BLD AUTO 2.8 [facility] MONOCYTES # BLD AUTO 0.41 [facility] NEUTROPHILS # BLD AUTO 8.[address] [facility] NRBC # BLD AUTO <0.01 [facility] NRBC/100 WBC BLD-RTO 0 /[address] [facility] PLATELET # BLD AUTO 271 [facility] PMV BLD AUTO 10.8 fL 9.0 - 12.[address] [facility] WBC # BLD AUTO 12.39 [facility] IMM GRANULOCYTES # BLD AUTO 0.33 High NINF [facility] IMM GRANULOCYTES/LEUK NFR BLD AUTO 2.7 % [facility] MCH (RBC) [Entitic mass] 32 pg 26.0 - 34.[address] [facility] Specimen Type: BLOOD SPECIMEN Ordering Facility: [facility] Address: [address], [place] [address] Original Ordering Provider: ILIANA Alexandra 04-26-2024 CNOV Office Visit (GASTNO ) REJI HARPERSITUYET Mcclellan ([id number]) 1990 F Date Time Provider Department 04/26/24 [...] do not hesitate to send me a Maana message or call. FARNAZ Mohr Lauren, PA-C [...] she saw Dr. Hylton in 2021 in [facility]. 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 Colonosc (more content not included)... Normal [facility] CNOV Office Visit (ALFONZO ) ORION HARPER ([id number]) 1990 F Date Time Provider Department 04/26/24 12:00 PM LYDIA KELLEY During your visit today, we recorded the following information about you: yLdia Kelley DO 05/09/2024 1:33 PM Signed Reason [...] and plan (more content not included)... Normal [facility] Ceruloplasmin SerPl-mCncon 0 04-26-2024 Ceruloplasmin [Mass/Vol] 27 mg/dL Normal 16-45 [facility] Comment on above: Order Comment: Speci men Type: BLOOD SPECIMEN Ordering Facility: [facility] Address: [address] [place] [address] Performed By: #### 1 825-9, 2064-4 #### [facility] CLIA [id number] [address] [place] [address] [place] [address] [place] Comprehensive metabolic 2000 panelon 04-26-2024 Albumin [Mass/Vol] 4.7 g/dL 3.9 - 4.9 g/dL [facility] ALP [Catalytic activity/Vol] 144 U/L High 34 - 123 U/L [facility] ALT [Catalytic activity/Vol] 192 U/L High 7 - 38 U/L [facility] Anion gap [Moles/Vol] 13 mmol/L 8 - 15 mmol/L [facility] AST [Catalytic activity/Vol] 99 U/L High 13 - 35 U/L [facility] Bilirubin [Mass/Vol] 0.3 mg/dL 0.2 - 1 .3 mg/dL [facility] Calcium [Mass/Vol] 9.2 mg/dL 8.5 - 10. 2 mg/dL [facility] Chloride [Moles/Vol] 100 mmol/L 98 - 10 7 mmol/L [facility] CO2 [Moles/Vol] 25 mmol/L 22 - 30 mmol/L [facility] Creatinine [Mass/Vol] 0.58 mg/dL 0.58 - 0.96 mg/dL [facility] GFR/1.73 sq M.predicted among non-blacks MDRD (S/P/Bld) [Vol rate/Area] 121 mL/min/{1.73_m2} - PINF [facility] Comment on above: Estimated Glomerular Filtration [...] [Mass/Vol] 95 mg/dL 74 - 99 mg/dL [facility] Comment on above: The [place] Diabete s Association (ADA) provides guidance for [...] Standards of Medical Care in Diabetes 2016, [place] Diabetes Association. Diabetes Care. 2016.39(Suppl 1). Interpretation and review of laboratory results Abnormal [facility] Potassium [Moles/Vol] 4.0 mmol/L 3.7 - 5.1 mmol/L [facility] Protein [Mass/Vol] 8.0 g/dL 6.3 - 8.0 g/dL [facility] Sodium [Moles/Vol] 138 mmol/L 136 - 144 mmol/L [facility] Urea nitrogen [Mass/Vol] 12 mg/dL 7 - 21 mg/dL [facility] Albumin [Mass/Vol] 4.7 g/dL Normal 3.9-4.9 [facility] Comment on above: Order Comment: Rl basilio Type: BLOOD SPECIMEN Ordering Facility: [facility] Address: [address] [place] [address] Performed By: #### 1 822063-07 #### [facility] CLIA [id number] [address] [place] [address] [place] ALP [Catalytic activity/Vol] 144 U/L High 34-123 [facility] Comment on above: Order Comment: Dionicioi men Type: BLOOD SPECIMEN Ordering Facility: [facility] Address: [address] [place] [address] Performed By: #### 1 822063-07 #### [facility] CLIA [id number] [address] [place] [address] [place] ALT [Catalytic activity/Vol] 192 U/L High 7-38 [facility] Comment on above: Order Comment: Speci men Type: BLOOD SPECIMEN Ordering Facility: [facility] Address: [address] [place] [address] Performed By: #### 1 825-9, 2063-07 #### [facility] CLIA [id number] [address] [place] [address] [place] Anion gap [Moles/Vol] 13 mmol/L Normal 8-15 [facility] Comment on above: Order Comment: Speci men Type: BLOOD SPECIMEN Ordering Facility: [facility] Address: [address] [place] [address] Performed By: #### 1 825-9, 2063-07 #### [facility] CLIA [id number] [address] [place] [address] [place] AST [Catalytic activity/Vol] 99 U/L High 13-35 [facility] Comment on above: Order Comment: Speci men Type: BLOOD SPECIMEN Ordering Facility: [facility] Address: [address] [place] [address] Performed By: #### 1 825-9, 2063-07 #### [facility] CLIA [id number] [address] [place] [address] [place] Bilirubin [Mass/Vol] 0.3 mg/dL Normal 0.2-1.3 [facility] Comment on above: Order Comment: Speci men Type: BLOOD SPECIMEN Ordering Facility: [facility] Address: [address] [place] [address] Performed By: #### 1 825-9, 2063-07 #### [facility] CLIA [id number] [address] [place] [address] [place] Calcium [Mass/Vol] 9.2 mg/dL Normal 8.5-10.2 [facility] Comment on above: Order Comment: Speci men Type: BLOOD SPECIMEN Ordering Facility: [facility] Address: [address] [place] [address] Performed By: #### 1 825-9, 2063-07 #### [facility] CLIA [id number] [address] [place] [address] [place] Chloride [Moles/Vol] 100 mmol/L Normal 98-107 [facility] Comment on above: Order Comment: Speci men Type: BLOOD SPECIMEN Ordering Facility: [facility] Address: [address] [place] [address] Performed By: #### 1 825-9, 2063-07 #### [facility] CLIA [id number] [address] [place] [address] [place] CO2 [Moles/Vol] 25 mmol/L Normal 22-30 [facility] Comment on above: Order Comment: Speci men Type: BLOOD SPECIMEN Ordering Facility: [facility] Address: [address] [place] [address] Performed By: #### 1 8259, 2063-07 #### [facility] CLIA [id number] [address] [place] [address] [place] Creatinine [Mass/Vol] 0.58 mg/dL Normal 0.58-0.96 [facility] Comment on above: Order Comment: Speci men Type: BLOOD SPECIMEN Ordering Facility: [facility] Address: [address] [place] [address] Performed By: #### 1 825-9, 2063-07 #### [facility] CLIA [id number] [address] [place] [address] [place] Creatinine and Glomerular filtration rate.predicted panel (S/P/Bld) 121 mL/min/1.73m??? Normal >=60 [facility] Comment on above: Order Comment: Speci men Type: BLOOD SPECIMEN Ordering Facility: [facility] Address: [address] [place] [address] Result Comment: Chely mated Glomerular Filtration Rate [...] reflect actual GFR. Performed By: #### 1 8208-30, 2063-07 #### [facility] CLIA [id number] [address] [place] [address] [place] Glucose [Mass/Vol] 95 mg/dL Normal 74-99 [facility] on above: Order Comment: Rl basilio Type: BLOOD SPECIMEN Ordering Facility: [facility] Address: [address] [place] [address] Result Comment: The [place] Diabetes Association (ADA) provides guidance for cutoff [...] Standards of Medical Care in Diabetes 2016, [place] Diabetes Association. Diabetes Care. 2016.39(Suppl 1). Performed By: #### 1 , 2063-07 #### [facility] CLIA [id number] [address] [place] [address] [place] Potassium [Moles/Vol] 4.0 mmol/L Normal 3.7-5.1 [facility] Comment on above: Order Comment: Rl basilio Type: BLOOD SPECIMEN Ordering Facility: [facility] Address: [address] [place], [place] [address] Performed By: #### 1 8208-30, 2063-07 #### [facility] CLIA [id number] [address] [place] [address] [place] Protein [Mass/Vol] 8.0 g/dL Normal 6.3-8.0 [facility] Comment on above: Order Comment: Speci men Type: BLOOD SPECIMEN Ordering Facility: [facility] Address: [address] [place] [address] [place] [address] Performed By: #### 1 825-9, 2063-07 #### [facility] CLIA [id number] [address] [place] [address] [place] Sodium [Moles/Vol] 138 mmol/L Normal 136-144 [facility] Comment on above: Order Comment: Speci men Type: BLOOD SPECIMEN Ordering Facility: [facility] Address: [address] [place] [address] Performed By: #### 1 825-9, 2063-07 #### [facility] CLIA [id number] [address] [place] [address] [place] Urea nitrogen [Mass/Vol] 12 mg/dL Normal 7-21 [facility] Comment on above: Order Comment: Speci men Type: BLOOD SPECIMEN Ordering Facility: [facility] Address: [address] [place] [address] Performed By: #### 1 829, 2063-07 #### [facility] CLIA [id number] [address] [place] [address] [place] FERRITINon 04-26-2024 Ferritin [Mass/Vol] 420.9 ng/mL High 14.7 - 2 05.1 ng/mL [facility] Ferritin SerPl-mCncon 2024 Ferritin [Mass/Vol] 420.9 ng/mL High 14.7-205.1 [facility] Comment on above: Order Comment: Speci men Type: BLOOD SPECIMEN Ordering Facility: [facility] Address: [address] [place] [address] Performed By: #### 1 825-9, 2063-07 #### [facility] CLIA [id number] [address] [place] [address] [place] Ferritin [Mass/Vol]on 2024 Interpretation and review of laboratory results Abnormal [facility] HAV IgM Ser Qlon 04-26-2024 HAV IgM Ql (S) Negative Normal Negative [facility] Comment on above: Order Comment: Specmaribel basilio Type: BLOOD SPECIMEN Ordering Facility: [facility] Address: [address] [place] [address] Result Comment: No e vidence of recent infection with Hepatitis A virus. Performed By: #### 3 1204-1, 22047-8, 5194-3 #### [facility] CLIA [id number] [address] [place] [address] [place] HBV core IgM Ser Qlon 2024 HBV core IgM Ql (S) Negative Normal Negative [facility] Comment on above: Order Comment: Rl [facility] Type: BLOOD SPECIMEN Ordering Facility: [facility] Address: [address] [place] [address] Result Comment: No e vidence of recent infection with Hepatitis B virus. Should recent infection be suspected, repeat testing may be considered 3-4 weeks after this draw. Performed By: #### 3 1204-1, 47603-3, 5194-3 #### [facility] CLIA [id number] [address] [place] [address] [place] HBV surface Ag Ser Qlon HBV surface Ag Ql (S) Negative Normal Negative [facility] Comment on above: Order Comment: Rl [facility] Type: BLOOD SPECIMEN Ordering Facility: [facility] Address: [address] [place] [address] Performed By: #### 3 1204-1, 35907-4, 5194-3 #### [facility] CLIA [id number] [address] [place] [address] [place] HCV Ab Ser Qlon 04-26-2024 HCV Ab Ql (S) Negative Normal Negative [facility] Comment on above: Order Comment: Dionicioi [facility] Type: BLOOD SPECIMEN Ordering Facility: [facility] Address: [address] [place] [address] Result Comment: The result suggests no evidence of active infection with Hepatitis C virus. Should recent infection be suspected, repeat testing may be considered 4-6 weeks after this draw. Performed By: #### 1 6128-1 #### [facility] CLIA [id number] [address] [place] [address] [place] Iron and Iron binding capaci ty panel 04-26-2024 Interpretation and review of laboratory results Normal [facility] Iron [Mass/Vol] 105 ug/dL 41 - 186 ug/dL [facility] Iron binding capacity [Mass/Vol] 340 ug/dL 232 - 386 ug/dL [facility] Iron/TIBC [Molar ratio] 30.9 % 15.0 - 57.0 % [facility] Iron [Mass/Vol] 105 ug/dL Normal 41-186 [facility] Comment on above: Order Comment: Speci men Type: BLOOD SPECIMEN Ordering Facility: [facility] Address: [address] [place] [address] Performed By: #### 1 8208-30, 2063-07 #### [facility] CLIA [id number] [address] [place] [address] [place] Iron binding capacity [Mass/Vol] 340 ug/dL Normal 232-386 [facility] Comment on above: Order Comment: Speci men Type: BLOOD SPECIMEN Ordering Facility: [facility] Address: [address] [place] [address] Performed By: #### 1 8208-30, 2063-07 #### [facility] CLIA [id number] [address] [place] [address] [place] Iron/TIBC [Molar ratio] 30.9 % Normal 15.0-57.0 [facility] Comment on above: Order Comment: Speci men Type: BLOOD SPECIMEN Ordering Facility: [facility] Address: [address] [place] [address] Performed By: #### 1 825-9, 2063-07 #### [facility] CLIA [id number] [address] [place] [address] [place] Laboratory - Hematology and Cell countson 04-26-2024 Basophils/100 WBC (Bld) 0.5 % [facility] Eosinophils/100 WBC (Bld) 0.1 % [facility] Erythrocyte distribution width (RBC) [Ratio] 12.5 % 11.5 - 15.0 % [facility] Hematocrit (Bld) [Volume fraction] 46.1 % High 36.0 - 46.0 % [facility] Hemoglobin (Bld) [Mass/Vol] 15.5 g/dL 11.5 - 15.5 g/dL [facility] Lymphocytes/100 WBC (Bld) 22.6 % [facility] MCHC (RBC) [Mass/Vol] 33.6 g/dL 30.5 - 36.0 g/dL [facility] MCV (RBC) [Entitic vol] 95.1 fL 80.0 - 100.[address] [facility] Monocytes/100 WBC (Bld) 3.3 % [facility] Neutrophils/100 WBC (Bld) 70.8 % [facility] RBC (Bld) [#/Vol] 4.85 10*6/uL 3.90 - 5.2 0 m/uL [facility] Mitochondria Ab IF Ql (S)on 04-26-2024 Mitochondria M2 Ab IA Qn (S) 2.8 Units Normal <=20.0 [facility] Comment on above: Order Comment: Rl basilio Type: BLOOD SPECIMEN Order[facility] Facility: [facility] Address: [address] [place] [address] Performed By: #### 1 829, 2063-07 #### [facility] CLIA [id number] [address] [place] [address] [place] Mitochondria M2 Ab Ql (S) Negative Normal Negative [facility] Comment on above: Order Comment: Rl basilio Type: BLOOD SPECIMEN Ordering Facility: [facility] Address: [address] [place] [address] Result Comment: Anti -mitochondrial antibody test is used as an aid in diagnosis of primary biliary cholangitis. Clinical correlation is required. Performed By: #### 1 8259, 2063-07 #### [facility] CLIA [id number] [address] [place], [place] [address] [place] [address] [place] No Panel Informationon 04-26 [facility] Interpretation and review of laboratory results Abnormal [facility] PT panel Coag (PPP)on 2024 INR Coag (PPP) [Relative time] 0.9 {INR} 0.9 - 1.3 [facility] Comment on above: Vitamin K Antagonist (VKA) Therapeutic Range: INR 2 to 3 (Target INR of 2.5) Note: For patients treated with VKA drugs, such as warfarin, the [place] [employer] 2012 Guideline recommends [...] 2.5 to 3.5 (target INR of 3). Elliottyatt GH, et al. Chest 2012, 141:7S-47S Lit RA, et al. [facility] 2017, 70: 252-289 Interpretation and review of laboratory results Normal [facility] PT Coag (PPP) [Time] 10.6 s [facility] INR Coag (PPP) [Relative time] 0.9 {INR} Normal 0.9-1.3 [facility] Comment on above: Order Comment: Speci men Type: BLOOD SPECIMEN Ordering Facility: [facility] Address: [address] [place] [address] Result Comment: Maya min K Antagonist (VKA) Therapeutic Range: INR 2 to 3 (Target INR of 2.5) Note: For patients treated with VKA drugs, such as warfarin, the [place] [employer] 2012 Guideline recommends [...] to 3.5 (target INR of 3). Linda LEWIS, et al. Chest 2012, 141:7S-47S Lit RA, et al. [facility] 2017, 70: 252-289 Performed By: #### 3 4528-0 #### [facility] CLIA [id number] [address] [place] [address] [place] PT Coag (PPP) [Time] 10.6 s Normal 9.7-13.0 [facility] Comment on above: Order Comment: Rl basilio Type: BLOOD SPECIMEN Ordering Facility: [facility] Address: [address] [place] [address] Performed By: #### 3 4528-0 #### [facility] [place] [id number] [address] [place] [address] [place] Smooth muscle Ab Ql (S)on ACTIN SMOOTH MUSCLE IGG QUALITATIVE Negative Normal Negative [facility] Comment on above: Order Comment: Rl basilio Type: BLOOD SPECIMEN Order[facility] Facility: [facility] Address: [address] [place] [address] Performed By: #### 1 825-9, 2063-07 #### [facility] CLIA [id number] [address] [place] [address] [place] ACTIN SMOOTH MUSCLE IGG QUANTITATIVE 5 Units Normal <20 [facility] Comment on above: Order Comment: Rl basilio Type: BLOOD SPECIMEN Ordering Facility: [facility] Address: [address] [place] [address] Performed By: #### 1 825-9, 2063-07 #### [facility] CLIA [id number] [address] [place], [place] [address] [place] ECHOon 04-09-2024 Echocardiography Echocardiography Report: Transthoracic Echo [facility] Date of service: 04/09/2024 3:28:57 PM Ordering physician: SOLO MORA Indication: Syncope Technologist: Josephine [place] [facility] Interpreting physician: Sheri Ac MD [...] * * Final * * * CC [employer] Medical Image : [id number] [facility] 04-05-2024 UHYEN Telephone (CARDMN) ORION HARPER ([id number]) 1990 F Date Time Provider Department 04/05/24 SOLO MORA During your visit today, we recorded the following information about you: Demetra Criss 04/05/2024 1:02 PM Signed Outside ep I have a copy @ my desk Criss JusticeJuleeBhanu JusticeJuleeBhanuJaspal[place] 04/09/2024 11:49 AM Signed April 09, 2024 Patient Contact Number: [phone] Patient last seen within the last year: Yes 12/15 Reason For Call: Test Results Zio- 12/2023 Physician: Dr. Mora Patient was informed that non-urgent calls may be returned within the next three business days. Yes Joy Dahl RN 04/09/2024 2:14 PM Signed Cardiac clearance and office noted faxed to [facility]. In regards to Zio monitor. Dr Mora reviewed no concerning findings. JW Ruiz Octavia 04/09/2024 2:38 PM Signed Form completed, faxed AND scanned into outside ep. [place] VinhMonica Allergies As of Date: 04/05/2024 Noted Allergy [...] Medical Records [3576] Cmt: Cardio Clearance [facility] Results [95] Cmt: Zio Prescriptions as of [...] Status:Closed by CRISS MCCRARY on 04/05/24 Normal [place] HEMOGLOBIN A1con 04-04-2024 HEMOGLOBIN A1c 5.5 % [...] diagnosis of diabetes in children. According to [place] Diabetes Association (ADA) guidelines, hemoglobin A1c <7.0% represents optimal control in non- diabetic patients. Different metrics may apply to specific patient populations. Standards of Medical Care in Diabetes(ADA). Performed By: #### 4 96 733 #### [facility] [address], [address] [place], [place] [id number] Operational Meteorologist: Tim Dotson MD POTASSIUMon 04-04-2024 Potassium [Moles/Vol] 3.7 mmol/L Normal 3.5-5.[address] [facility] Comment on above: Order Comment: FASTI NG:YES FASTING: YES Performed By: #### 4 96, 733 #### [facility] [address], [address] [place], [place] [address] Operational Meteorologist: Tim Dotson MD [facility]20[facility] ORION HARPER ([id number]) 1990 F Date Time Provider Department 04/02/24 KOCHAR, ARSHNEEL CARDMN During your visit today, we recorded the following information about you: Criss Mccrary 04/02/2024 3:53 PM Signed This 'Ankle Surgery Clearance' was faxed over to Dr. Giovani Hagen (PCP) @ [phone] for signing. I spoke with the patient. [...] Received Outside Medical Records [3576] Cmt: [facility] Prescriptions as of 04/02/2024 - amphetamine-dextroamp hetamine [...] Status:Closed by CRISS MCCRARY on 04/02/24 Normal [facility] IGP,APTIMA HPV,AGE GDLNon AGE GDLN ACOG TESTING Note . [facility] Comment on above: TESTS RESULT FLAG U NITS REF RANGE LAB Clinician Provided Cytology Information Source.............Vagina No. of containers..01 ThinPrep Vial Age Skip FERNANDES Starla... 30 FLAG LEGEND: L-Low Normal,H-High Normal,LL-Alert Low,HH-Alert High <-Panic Low,>-Panic High,A-Abnormal,AA-Critical Abnormal Performed at: 01 =[address] [address] Zoraida Hawkins MD, HPV APTIMA Negative Negative [facility] Comment on above: This nucleic acid am plification test detects fourteen high- risk HPV types (16,18,31,33,35,39,45,51,52,56,58,59,66,68) without differentiation. Performed at: =[address] [id number] [employer] Wel[employer] Equipment Mechanic: Zoraida Hawkins MD, Phone: [phone] Performed at: [address] [id number] [employer] Mechanic: Zoraida Hawkins MD, Phone: [phone] IGP, APTIMA HPV, RFX 16/18,[address] [facility] Comment on above: TESTS RESULT FLAG UN ITS REF RANGE LAB DIAGNOSIS: 02 NEGATIVE FOR INTRAEPITHELIAL LESION OR MALIGNANCY. Specimen adequacy: 02 Satisfactory for evaluation. Performed by: 02 Zehra Brush, Freelance Court Stenographer ([facility]) . 02 Note: Note 02 The Pap [...] <-Panic Low,>-Panic High,A-Abnormal,AA-Critical Abnormal Performed at: [address] [address] Zoraida Hawkins MD, SPATULA-ALONE VAGINA CLINISY[facility] ALL CBC WITH AUTO DIFFon BASOPHILS ABSOLUTE AUTO 0.0 [facility] Basophils/100 WBC (Bld) 0.4 % 0.2 - 2.0 % [facility] Eosinophils/100 WBC (Bld) 2.8 % 0.9 - 7.0 % [facility] Erythrocyte distribution width (RBC) [Ratio] 12.4 % 11.0 - 15.0 % [facility] Hematocrit (Bld) [Volume fraction] 41.9 % 36.0 - 48.0 % [facility] Hemoglobin (Bld) [Mass/Vol] 14.2 g/dL 12.0 - 16.0 g/dL [facility] IMMATURE GRANULOCYTES ABS AUTO 0.03 [facility] Immature granulocytes/100 WBC (Bld) 0.4 % 0.0 - 0.5 % [facility] LYMPHOCYTES ABSOLUTE AUTO 2.8 St[address] [facility] Lymphocytes/100 WBC (Bld) 35.6 % 20.5 - 60.0 % [facility] MCH (RBC) [Entitic mass] 32.1 pg 26.7 - 34.[address] [facility] MCHC (RBC) [Mass/Vol] 33.9 g/dL 29.9 - 35.2 g/dL [facility] MCV (RBC) [Entitic vol] 94.8 fL 81.0 - 99.[address] [facility] MONOCYTES ABSOLUTE AUTO 0.5 [facility] Monocytes/100 WBC (Bld) 6.0 % 1.7 - 12.0 % [facility] NEUTROPHILS ABSOLUTE AUTO 4.3 [facility] Neutrophils/100 WBC (Bld) 54.8 % 43.0 - 75.0 % [facility] Platelet mean volume (Bld) [Entitic vol] 10.4 fL 9.5 - 13.[address] [facility] TBH EO # 0.2 [facility] PLT 265 [facility] RBC 4.42 [facility] TB WBC 7.8 [facility] CLINISYNC [facility] Extra Lavender Tubeon 2022 Extra Lavender Tube Normal [facility] Comment on above: Performed By: #### X LAV, LIVP, LIP #### [facility] [address] [place] [address] [employer] Welding Equipment Mechanic: Ronald Pearce MD Lipaseon 03-24-2023 Lipase [Catalytic activity/Vol] 260 U/L High 13-60 [facility] Comment on above: Performed By: #### X LAV, LIVP, LIP #### [facility] [address] [place] [address] [employer] Equipment Mechanic: Ronald Pearce MD Liver Profileon 03-24-2023 Albumin [Mass/Vol] 3.5 g/dL Normal 3.5-5.2 [facility] Comment on above: Performed By: #### X LAV, LIVP, LIP ####[facility] Ksz[address] [facility] [place] [address] Lab Director: Ronald Pearce MD Alkaline Phos 321 U/L High 35-104 [facility] Comment on above: Performed By: #### X LAV, LIVP, LIP ####[facility] [id number] [facility] [place] [phone] Director: Ronald Pearce MD ALT [Catalytic activity/Vol] 137 U/L High 5-33 [facility] Comment on above: Performed By: #### X LAV, LIVP, LIP ####[facility] [id number] [facility] [phone] Director: Ronald Pearce MD AST [Catalytic activity/Vol] 60 U/L High <32 [facility] Comment on above: Performed By: #### X LAV, LIVP, LIP ####[facility] [address] [place] [address].[place] [phone] Director: Ronald Pearce MD Bilirubin [Mass/Vol] 1.0 mg/dL Normal 0.3-1.2 [facility] Comment on above: Performed By: #### X LAV, LIVP, LIP ####[facility] [address] [place] [address].[place] [phone] Director: Ronald Pearce MD Bilirubin, Indirect 0.4 mg/dL Normal 0.0-1.0 [facility] Comment on above: Performed By: #### X LAV, LIVP, LIP ####[facility] Yyc[address] [facility] [place] [phone] Director: Ronald Pearce MD Bilirubin.indirect [Mass/Vol] 0.6 mg/dL High <0.3 [facility] Comment on above: Performed By: #### X LAV, LIVP, LIP ####[facility] Elu[address] [facility] [place] [phone] Director: Ronald Pearce MD Protein [Mass/Vol] 5.7 g/dL Low 6.4-8.3 [facility] Comment on above: Performed By: #### X LAV, LIVP, LIP ####[facility] [address], [place] [id number] lab Director: Ronald Pearce MD Extra Lavender Tubeon 2022 Extra Lavender Tube Normal [facility] Comment on above: Performed By: #### L IVP, XLAV ####[facility] [address], [place] [id number] lab Director: Ronald Pearce MD FL CHOLANGIOGRAM [...] Danny Cole MD 03/23/23 Final result Normal [facility] Liver Profileon 03-23-2023 Albumin [Mass/Vol] 3.5 g/dL Normal 3.5-5.2 [facility] Comment on above: Performed By: #### L IVP, XLAV ####[facility] [id number] [facility], [place] [id number] lab Director: Ronald Pearce MD Alkaline Phos 293 U/L High 35-104 [facility] Comment on above: Performed By: #### L IVP, XLAV ####[facility] [address] [place] [address] Lab Director: Ronald Pearce MD ALT [Catalytic activity/Vol] 111 U/L High 5-33 [facility] Comment on above: Performed By: #### L IVP, XLAV ####[facility] [address] [place] [address] Lab Director: Ronald Pearce MD AST [Catalytic activity/Vol] 43 U/L High <32 [facility] Comment on above: Performed By: #### L IVP, XLAV ####[facility] A[address] [facility] [place] [address] Lab Director: Ronald Pearce MD Bilirubin [Mass/Vol] 2.6 mg/dL High 0.3-1.2 [facility] Comment on above: Performed By: #### L IVP, XLAV ####[facility] [address] [place] [address] Lab Director: Ronald Pearce MD Bilirubin, Indirect 0.8 mg/dL Normal 0.0-1.0 [facility] Comment on above: Performed By: #### L IVP, XLAV ####[facility] Wcw[address] [facility] [place] [place] [address] Lab Director: Ronald Pearce MD Bilirubin.indirect [Mass/Vol] 1.8 mg/dL High <0.3 [facility] Comment on above: Performed By: #### L IVP, XLAV ####[facility] [address] [place] [address] Lab Director: Ronald Pearce MD Protein [Mass/Vol] 5.7 g/dL Low 6.4-8.3 [facility] Comment on above: Performed By: #### L IVP, XLAV ####[facility] [address] [place] [address] Lab Director: Ronald Pearce MD Surgical Pathology Reporton 03-23-2023 Surgical Pathology Report (NOTE) Path Number: [id number] -- Diagnosis -- A. GALLBLADDER AND CONTENTS, [...] lesions or periductal lymph nodes are identified. Cane Flume Feeding Machine Operator sections 1c. tm SM/tb1:03/24/2023 Microscopic Description Microscopic examination performed. Processing Lab: [address] [address] Interpretation Performed at [address] [address] SURGICAL PATHOLOGY CONSULTATION Patient Name: ORION HARPER Med Rec: [id number] [facility] [employer] [facility] ANATOMIC PATHOLOGY [address] [place] [address]. [place], [place] [address] Normal [facility] CBC with Diffon 03-22-2023 Abs. Basophil <0.03 Normal 0.00-0.20 [facility] Comment on above: Performed By: #### C DP, LIP, CMPX #### [facility] [address] [place] [address] [employer] Equipment Mechanic: Ronald Pearce MD #### TRIG #### [address] [phone] [employer] Wel[employer] Mechanic: Elio Marley MD Abs.Imm.Granulocyte 0.03 k/uL Normal 0.00-0.30 [facility] Comment on above: Performed By: #### C DP, LIP, CMPX #### [facility] [address] [place] [phone] [employer] Mechanic: Ronald Pearce MD #### TRIG #### [address] [phone] [employer] Mechanic: Elio Marley MD Abs.Neutrophil (Seg) 6.89 k/uL Normal 1.50-8.10 [facility] Comment on above: Performed By: #### C DP, LIP, CMPX #### [facility] [address] [place] [address] [employer] Mechanic: Ronald Pearce MD #### TRIG #### [address] [address] [employer] Wel[employer] Equipment Mechanic: Elio Marley MD Basophils/100 WBC (Bld) 0 % Normal 0-2 [facility] Comment on above: Performed By: #### C DP, LIP, CMPX #### [facility] [address] [place] [address] [employer] Mechanic: Ronald Pearce MD #### TRIG #### [address] [address] [employer] Welding Equipment Mechanic: Elio Marley MD Eosinophils (Bld) [#/Vol] 0.07 10*3/uL Normal 0.00-0.44 [facility] Comment on above: Performed By: #### C DP, LIP, CMPX #### [facility] [address] [place] [address] [employer] Mechanic: Ronald Pearce MD #### TRIG #### [address] [address] [employer] Wel[employer] Mechanic: Elio Marley MD Eosinophils/100 WBC (Bld) 1 % Normal 1-4 [facility] Comment on above: Performed By: #### C DP, LIP, CMPX #### [facility] [address] [place] [address] [employer] Mechanic: Ronald Pearce MD #### TRIG #### [address] [address] [employer] Wel[employer] Equipment Mechanic: Elio Marley MD Erythrocyte distribution width (RBC) [Ratio] 12.2 % Normal 11.8-14.4 [facility] Comment on above: Performed By: #### C DP, LIP, CMPX #### [facility] [address] [place] [address] [employer] Mechanic: Ronald Pearce MD #### TRIG #### [address] [address] [employer] Wel[employer] Mechanic: Elio Marley MD Hematocrit (Bld) [Volume fraction] 36.9 % Normal 36.3-47.1 [facility] Comment on above: Performed By: #### C DP, LIP, CMPX #### [facility] [address] [place] [address] [employer] Mechanic: Ronald Pearce MD #### TRIG #### [address] [address] [employer] Wel[employer] Equipment Mechanic: Elio Marley MD Hemoglobin (Bld) [Mass/Vol] 12.1 g/dL Normal 11.9-15.1 [facility] Comment on above: Performed By: #### C DP, LIP, CMPX #### [facility] [address] [place] [address] [employer] Wel[employer] Equipment Mechanic: Ronald Pearce MD #### TRIG #### [address] [address] [employer] Welding Equipment Mechanic: Elio Marley MD Immature granulocytes/100 WBC (Bld) 0 % Normal 0 [facility] Comment on above: Performed By: #### C DP, LIP, CMPX #### [facility] [address] [place] [address] [employer] Wel[employer] Mechanic: Ronald Pearce MD #### TRIG #### [address] [address] [employer] Welding Equipment Mechanic: Elio Marley MD Lymphocytes (Bld) [#/Vol] 1.62 10*3/uL Normal 1.10-3.70 [facility] Comment on above: Performed By: #### C DP, LIP, CMPX #### [facility] [address] [place] [address] [employer] Mechanic: Ronald Pearce MD #### TRIG #### [address] [address] [employer] Welding Equipment Mechanic: Elio Marley MD Lymphocytes/100 WBC (Bld) 18 % Low 24-43 [facility] Comment on above: Performed By: #### C DP, LIP, CMPX #### [facility] [address] [place] [address] [employer] Mechanic: Ronald Pearce MD #### TRIG #### [address] [address] [employer] Wel[employer] Mechanic: Elio Marley MD MCH (RBC) [Entitic mass] 32.5 pg Normal 25.2-33.5 [facility] Comment on above: Performed By: #### C DP, LIP, CMPX #### [facility] [address] [place] [address] [employer] Mechanic: Ronald Pearce MD #### TRIG #### [address] [address] [employer] Welding Equipment Mechanic: Elio Marley MD MCHC (RBC) [Mass/Vol] 32.8 g/dL Normal 28.4-34.8 [facility] Comment on above: Performed By: #### C DP, LIP, CMPX #### [facility] [address] [place] [address] [employer] Mechanic: Ronald Pearce MD #### TRIG #### [address] [address] [employer] Wel[employer] Mechanic: Elio Marley MD MCV (RBC) [Entitic vol] 99.2 fL Normal 82.6-102.9 [facility] Comment on above: Performed By: #### C DP, LIP, CMPX #### [facility] [address] [place] [address] [employer] Mechanic: Ronald Pearce MD #### TRIG #### [address] [address] [employer] Welding Equipment Mechanic: Elio Marley MD Monocytes (Bld) [#/Vol] 0.57 10*3/uL Normal 0.10-1.20 [facility] Comment on above: Performed By: #### C DP, LIP, CMPX #### [facility] [address] [place] [address] [employer] Mechanic: Ronald Pearce MD #### TRIG #### [address] [address] [employer] Wel[employer] Equipment Mechanic: Elio Marley MD Monocytes/100 WBC (Bld) 6 % Normal 3-12 [facility] Comment on above: Performed By: #### C DP, LIP, CMPX #### [facility] [address] [place] [address] [employer] Wel[employer] Equipment Mechanic: Ronald Pearce MD #### TRIG #### [address] [address] [employer] Wel[employer] Equipment Mechanic: Elio Marley MD Neutrophil (Seg) 75 % High 36-65 [facility] Comment on above: Performed By: #### C DP, LIP, CMPX #### [facility] [address] [place] [address] [employer] Wel[employer] Equipment Mechanic: Ronald Pearce MD #### TRIG #### [address] [address] [employer] Welding Equipment Mechanic: Elio Marley MD NRBC Automated 0.0 per 100 WBC Normal 0.0 [facility] Comment on above: Performed By: #### C DP, LIP, CMPX #### [facility] [address] [place] [address] [employer] Mechanic: Ronald Pearce MD #### TRIG #### [address] [address] [employer] Wel[employer] Equipment Mechanic: Elio Marley MD Platelet mean volume (Bld) [Entitic vol] 10.7 fL Normal 8.1-13.5 [facility] Comment on above: Performed By: #### C DP, LIP, CMPX #### [facility] [address] [place] [address] [employer] Wel[employer] Equipment Mechanic: Ronald Pearce MD #### TRIG #### [address] [address] [employer] Welding Equipment Mechanic: Elio Marley MD Platelets (Bld) [#/Vol] 188 10*3/uL Normal 138-453 [facility] Comment on above: Performed By: #### C DP, LIP, CMPX #### [facility] [address] [place] [address] [employer] Mechanic: Ronald Pearce MD #### TRIG #### [address] [address] [employer] Welding Equipment Mechanic: Elio Marley MD RBC (Bld) [#/Vol] 3.72 10*6/uL Low 3.95-5.11 [facility] Comment on above: Performed By: #### C DP, LIP, CMPX #### [facility] [address] [place] [address] [employer] Mechanic: Ronald Pearce MD #### TRIG #### [address] [address] [employer] Wel[employer] Mechanic: Elio Marley MD WBC (Bld) [#/Vol] 9.2 10*3/uL Normal 3.5-11.3 [facility] Comment on above: Performed By: #### C DP, LIP, CMPX #### [facility] [address] [place] [address] [employer] Wel[employer] Equipment Mechanic: Ronald Pearce MD #### TRIG #### [address] [address] [employer] Welding Equipment Mechanic: Elio Marley MD Comp Metabolic Pr/rfx MGon 1 05-22-2022 Albumin [Mass/Vol] 3.5 g/dL Normal 3.5-5.2 [facility] Comment on above: Performed By: #### C DP, LIP, CMPX #### [facility] [address] [place] [address] [employer] Mechanic: Ronald Pearce MD #### TRIG #### [address] [address] [employer] Wel[employer] Equipment Mechanic: Elio Marley MD Alkaline Phos 157 U/L High 35-104 [facility] Comment on above: Performed By: #### C DP, LIP, CMPX #### [facility] [address] [place] [address] [employer] Wel[employer] Equipment Mechanic: Ronald Pearce MD #### TRIG #### [address] [address] [employer] Wel[employer] Equipment Mechanic: Elio Marley MD ALT [Catalytic activity/Vol] 131 U/L High 5-33 [facility] Comment on above: Performed By: #### C DP, LIP, CMPX #### [facility] [address] [place] [address] [employer] Welding Equipment Mechanic: Ronald Pearce MD #### TRIG #### [address] [address] [employer] Welding Equipment Mechanic: Elio Marley MD Anion gap [Moles/Vol] 11 mmol/L Normal 9-17 [facility] Comment on above: Performed By: #### C DP, LIP, CMPX #### [facility] [address] [place] [address] [employer] Wel[employer] Equipment Mechanic: Ronald Pearce MD #### TRIG #### [address] [address] [employer] Wel[employer] Equipment Mechanic: Elio Marley MD AST [Catalytic activity/Vol] 34 U/L High <32 [facility] Comment on above: Performed By: #### C DP, LIP, CMPX #### [facility] [address] [place] [address] [employer] Wel[employer] Equipment Mechanic: Ronald Pearce MD #### TRIG #### [address] [place] [address] [employer] Welding Equipment Mechanic: Elio Marley MD Bilirubin [Mass/Vol] 1.9 mg/dL High 0.3-1.2 [facility] Comment on above: Performed By: #### C DP, LIP, CMPX #### [facility] [address] [place] [address] [employer] Wel[employer] Equipment Mechanic: Ronald Pearce MD #### TRIG #### [address] [address] [employer] Welding Equipment Mechanic: Elio Marley MD BUN/CRE Ratio 17 Normal 9-20 [facility] Comment on above: Performed By: #### C DP, LIP, CMPX #### [facility] [address] [place] [address] [employer] Equipment Mechanic: Ronald Pearce MD #### TRIG #### [address] [address] [employer] Welding Equipment Mechanic: Elio Marley MD Calcium [Mass/Vol] 8.1 mg/dL Low 8.6-10.4 [facility] Comment on above: Performed By: #### C DP, LIP, CMPX #### [facility] [address] [place] [address] [employer] Equipment Mechanic: Ronald Pearce MD #### TRIG #### [address] [address] [employer] Welding Equipment Mechanic: Elio Marley MD Chloride [Moles/Vol] 105 mmol/L Normal 98-107 [facility] Comment on above: Performed By: #### C DP, LIP, CMPX #### [facility] [address] [place] [address] [employer] Equipment Mechanic: Ronald Pearce MD #### TRIG #### [address] [place] [address] [employer] Welding Equipment Mechanic: Elio Marley MD CO2 [Moles/Vol] 21 mmol/L Normal 20-31 [facility] Comment on above: Performed By: #### C DP, LIP, CMPX #### [facility] [address] [place] [address] [employer] Welding Equipment Mechanic: Ronald Pearce MD #### TRIG #### [address] [address] [employer] Welding Equipment Mechanic: Elio Marley MD Creatinine [Mass/Vol] 0.6 mg/dL Normal 0.5-0.9 [facility] Comment on above: Performed By: #### C DP, LIP, CMPX #### [facility] [address] [place] [address] [employer] Wel[employer] Equipment Mechanic: Ronald Pearce MD #### TRIG #### [address] [address] [employer] Welding Equipment Mechanic: Elio Marley MD GFR/1.73 sq M.predicted among non-blacks MDRD (S/P/Bld) [Vol rate/Area] mL/min/{1.73_m2} Normal >60 [facility] Comment on above: Result Comment: These [...] By: #### C DP, LIP, CMPX #### [facility] [address] [place] [address] [employer] Wel[employer] Equipment Mechanic: Ronald Pearce MD #### TRIG #### [address] [address] [employer] Welding Equipment Mechanic: Elio Marley MD Glucose [Mass/Vol] 75 mg/dL Normal 70-99 [facility] Comment on above: Performed By: #### C DP, LIP, CMPX #### [facility] [address] [place] [address] [employer] Wel[employer] Equipment Mechanic: Ronald Pearce MD #### TRIG #### [address] [address] [employer] Welding Equipment Mechanic: Elio Marley MD Potassium [Moles/Vol] 4.0 mmol/L Normal 3.7-5.3 [facility] Comment on above: Performed By: #### C DP, LIP, CMPX #### [facility] [address] [place] [address] [employer] Wel[employer] Equipment Mechanic: Ronald Pearce MD #### TRIG #### [address] [address] [employer] Welding Equipment Mechanic: Elio Marley MD Protein [Mass/Vol] 5.7 g/dL Low 6.4-8.3 [facility] Comment on above: Performed By: #### C DP, LIP, CMPX #### [facility] [address] [place] [address] [employer] Equipment Mechanic: Ronald Pearce MD #### TRIG #### [address] [address] [employer] Welding Equipment Mechanic: Elio Marley MD Sodium [Moles/Vol] 137 mmol/L Normal 135-144 [facility] Comment on above: Performed By: #### C DP, LIP, CMPX #### [facility] [address] [place] [address] [employer] Wel[employer] Equipment Mechanic: Ronald Pearce MD #### TRIG #### [address] [address] [employer] Welding Equipment Mechanic: Elio Marley MD Urea nitrogen [Mass/Vol] 10 mg/dL Normal 6-20 [facility] Comment on above: Performed By: #### C DP, LIP, CMPX #### [facility] [address] [place] [address] [employer] Welding Equipment Mechanic: Ronald Pearce MD #### TRIG #### [address] [address] [employer] Welding Equipment Mechanic: Elio Marley MD K (Potassium)on 03-22-2023 Potassium [Moles/Vol] 3.8 mmol/L Normal 3.7-5.3 [facility] Comment on above: Performed By: #### K #### [facility] [address] [place] [address] [employer] Wel[employer] Equipment Mechanic: Ronald Pearce MD Lipaseon 03-22-2023 Lipase [Catalytic activity/Vol] 198 U/L High 13-60 [facility] Comment on above: Performed By: #### C DP, LIP, CMPX #### [facility] [address] [place] [address] [employer] Equipment Mechanic: Ronald Pearce MD #### TRIG #### [address] [address] [employer] Welding Equipment Mechanic: Elio Marley MD MRI ABDOMEN WO CONTRAST [...] Daniel Hooker MD 03/22/23 Final result Normal [facility] Triglycerideson 03-22-2023 Triglyceride [Mass/Vol] 102 mg/dL Normal 0-149 [facility] Comment on above: Result Comment: Triglyceride Guidelines: <150 Desirable 150-199 Borderline 200-499 High >499 Very high Based on AHA Guidelines for fasting triglyceride, January 2012. Performed By: #### C DP, LIP, CMPX #### [facility] [address] [place], [place] [id number] [employer] Wel[employer] Equipment Mechanic: Ronald Pearce MD #### TRIG #### [facility] [address] [place], [place] [id number] [employer] Welding Equipment Mechanic: MD Lincoln Gordillo 03-20-2023 HUYEN Telephone (FVPRAD) ORION HARPER ([id number]) 1990 F Date Time Provider Department 03/20/23 CHARLETTE CAMPUZANO During your visit today, we recorded [...] Status:Closed by CHARLETTE CAMPUZANO on 03/20/23 Normal [facility] Ferritin [Mass/volume] in Se rum or PlasmaOrdered By: Erwin Hylton on 10-26-2022 Ferritin [Mass/Vol] 106.5 ng/mL 11.0-306.8 [facility] [place] GASTRIC EMPTYING SOLIDon 09-12-2022 [facility] Stomach Views for gastric emptying solid phase W radionuclide Izabella 09-12-2022 IMPRESSION: EVIDENCE OF DELAYED RATE OF GASTRIC EMPTYING OF SOLID MEAL. ABNORMAL STUDY: 36-50% RETENTION AT 4 HOURS IS CONSISTENT WITH SEVERE GASTROPARESIS. Boat Carpenter: PSCB Transcribe Date/Time: Sep 12 2022 3:02P Dictated by : LUZ MARINA VÁZQUEZ MD This examination was interpreted and the report reviewed and electronically signed by: LUZ MARINA VÁZQUEZ MD on Sep 12 2022 3:05PM [facility] RADIOLOGY * * *Final Report* * * DATE OF EXAM: Sep 12 2022 2:44PM [facility] 0017 - [place] GASTRIC EMPTYING [...] DATE OF EXAM: Sep 12 2022 2:44PM [facility] 0017 - [place] GASTRIC EMPTYING [...] 4 HOURS IS CONSISTENT WITH SEVERE GASTROPARESIS. Boat Carpenter: PSCDean Transcribe Date/Time: Sep 12 2022 3:02P Dictated by : LUZ MARINA VÁZQUEZ MD This examination was interpreted and the report reviewed and electronically signed by: LUZ MARINA VÁZQUEZ MD on Sep 12 2022 3:05PM EST [facility] Radiology Study observation (narrative) [facility] Stomach Views for gastric emptying solid phase W radionuclide POOrdered By: Ccf Provider on 09-12-2022 [facility] EGD Study observation Miguelito bender 09-02-2022 [facility] Gastroenterology Gastrointestinal Endoscopy Patient Name: Orion Harper Procedure Date: 08/31/2022 2:51 PM Date of : 1990 Admit Type: Outpatient Age: 31 Room: [facility] 2 Gender: Female 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 [employer]ATION [facility] SURGICAL PATHOLOGYOrdered By : Padilla Jasmine on 09-01-2022 Case Report Surgical Pathology Report Case: [id number] Authorizing Provider: Carol Winn MD Collected: 08/31/2022 03:04 PM Ordering Location: Ambulatory Surgery Received: 08/31/2022 09:20 PM Pathologist: Padilla Jasmine MD Specimens: A) - SMALL INTESTINE BIOPSY, r/o celiac B) - ANTRUM (STOMACH) BIOPSY, r/o hpylori C) - STOMACH BIOPSY, gastric body r/o hpylori [facility] Work Phone: Diagnosis Comment z4fbeKTiWCCziCBnVIZw N ZaenoAxTJRjmXZmS6Njkd mtUDsqBP0mEB4mvIzutXF luWZnREBnGwNbn9fmj779 oLKpr4ahFKINtsdozRs4a TehH11pb3J9FmxgC90deX VjVCX1PKFaXSUrtSPrOCM rUFU0SWLisYPsL6frOOJe SH3jjjziCWmpVBezVJAiz FJ1EGRgqGOoK1ByWUFjGS rmGXMqrhj2LlQfPl1xaHJ yeTcyMFxwYXJkXHBsYWlu IJQsYrQoVNhqve9nU03wl LYcAPfxqZekLEVqx19ur4 rjg2JvzN28RJX8IEHfqSv wmKNbQOUqiYf2WBA6jUKq LOelrLzugUB3V9i5URcdg HJhZXBpdGhlbGlhbCBseW 1pfE2ggPQyx8reZbDJoVQ dLNVhhR3xjD1txpDzenCt gk04OWEvnEwxGWd9OVXnJ WNpZmljOyBkaWZmZXJlbn WzWQliM57ro5ynSFAauIq etiYpo167iWTkcA0dyNYg ZSBsYXRlbnQgIGNlbGlhY zQcxLS9RBojHXUeqDP6iM UbsaOhQWJiZEGlRa3gkOx aSBLJF2CNZDLzRI7mYIgt YuKqqXzphYClG6UzuNGyX O45QWWmzCirKNludtOpgN RpbmcgSGVsaWNvYmFjdGV pQUT2hL2jrLvbGL7cuzkr j8BdVDEgYvOaM20bgxDmJ GMrFKnxfQeci0Nbz0fuR6 ztn5Q8UUnnvd5wgEObpC= = [facility] Work Phone: FINAL DIAGNOSIS u0avlGVlIIFktZKnUDHj N UguecJnUFIbrMRxB3Gndn yeIDrxSU4gAR0phMxtlLT hdAHhMWRnPpYnv3hqg904 qUBsm2orIQIMpcxqhIh7q IkuZ59ld4D6PcupF50kwG NwKIG5YNXfCGKbuYFfSJL cYQM8WXCqnGIaU0fyXCDp ON2flwioTWupHCsaPHRqs AW2BICfhTItV4NsVVXmSQ nwDPCfure1BcOgEa6dvUT yeTcyMFxwYXJkXHBsYWlu EMFrCwWxSF4vSSOwWXynA GludGVzdGluZSwgYmlvcH C1LlbpsD8fVW3FySCjlKN grfUcp8NpeaVqHD73T68t BHT6xFXmND0aat7thCP9a Stat7BgIKXoF7gmfVRteU TzAXZlokEme3hrC3v0M9L hdGNoeSBpbmNyZWFzZSBp biBpbnRyYWVwaXRoZWxpY HeytSgzpOauV0e4TVGxrS rrQQawuN1qLFRgAALCaN6 xDRBvUHAqsjDljN2fBVUo b8TrxPtfeBbpKGDwMUUdw LNjBaMaeNMtLRV4uL4vtY Vme7OoQ2ysuNXiUARxbo0 ziVUxJYB3iWPuYCkop2Qb rCPwi8gqjQ2eJF3Lj1Lqr Vq0DXFiy9PfTKVtgGMvLc QxiDJrRFA1tL1beFLddnn lyrbfhBGyp61vnj43uKac LKRcvLOeeshvX1ugyH5fV AfyuoVhQl0yJNS0n80wJ5 ceOSHuSEuuZPCoj9VryWl cbGluZSAtSGVsaWNvYmFj dSNwLAQ2rL9bwQKne8UsX 8dcfRTrUTKhqk7suFWlCK I5tGPuNAeiy1CsyPBen4l hlK1kVQ0Zg6BlmGo9MLOi q6RaTVDptAWgSvTjgVLqA KZ2pQ7lyCNkmaxlhjnuzX Xxu61coh27yXzuOPBqkOB jepgoY8uwJIC0 [facility] Work Phone: Gross Description t9qtlSGwCCKdvTMAVEAh M HYpQF8wcLpmlZz4xCwtTE DqxlW7sUVaRDrrg9yyOFW 4g2qvmwXCTmkoNRUfIZga LSHgrncaHjP8OYhpXHDvi fbiFMw0NFiiAICsyRM8OI FtrKOvE7RaLTKnAA3qpcp 1WCJ2IZegYVVfRvJ8CZJn SaFuEbspFNp1EQIhpwL8H wx5OUZsTNSoxYFll8O7RT kivwieXSQclLXyN529VQk xn5FtbNVgZIiuiJFpFJRM HbqyPutrfIsle5XdoTTmY GlkIDUxMDAwIFxcbmggXF h6VXEuBGqleMPvTE9onWe iJkjruCxyp8GzhPRcOXvc YLYyGYKmPAulNJWrJN9KG hPxYAUdQAT5JRtzMeF7YX k0WROJVhVkGfBfLxWfJFQ kLcIuSAm5NVw4KQcDZaDj NTFsXuMtKMUaSuP5WDsrF yBcXHQgMiBcXGYgQXJpYW fmMDtbyCWgGP0drArmyUB pbiBBLiBTTUFMTCBJTlRF M6UXQqZtTnxMNLGGZIAsb iANClxlcGljTmVzdERvYz EgDQpcbHRycGFyXGxpbjB ccmluMCANClxsdHJjaFxm rxWbEEVaN7MmtrSgWRmmI RLvtz9wvDbcXHQzAUFdxP z5xEGeOJRcyYHxRGNrh9P qmZIaWPFzi6H7TPBfm6Q2 ATJnX1knCKihqYheAyU5c yAxLjAgeCAwLjIgeCAwLj NeC74pBWDlqFSneFvbg2G kwJi1jFHxYZfqQH9zMQSf XOGuRCH2KF8dzZwxDRUOU lxlcGljTmVzdERvYzBcdj X0HVVunSKtHEC4MU5fVSW kbaybINKsBCLlRBJ0DKnp eI09mGJaRFIeSXZkbTNdo VxwbGFpbiANCntcKlxlcG jql1ZtnUPvMIavNZOuNUY mTGtgHAKvFY9QRjZrCMFj FRN1EYwrHoI2LWt5JFMQG lMgIiAgMzExNDIyNzQiID m7SXa2DAcVOrOqNFVmDkV cWVE7BFO3DFenShQrFLIn MiBcXGYgQXJpYWwgXFxmb XNrGM8faOgrkOTznxojfi M5TBSkBZctRAFjGJQRRIJ HUBEaN1EOHHTATUuaMzmD UFNZXHBhciANClxlcGljT mVzdERvYzEgDQpcbHRycG FyXGxpbjBccmluMCANClx wlELtsCcgohUcVFBlX6Lc jlMxSIvcWVCthl6gqEydG CQbLCQeoIv6eYSgJDMavY TmLWIca3ItyYQiBTZer0Y 8HUKyk8I7WABsX0abNAfa bYgcCzE7oiXsBbCooEWsJ eGlxDVuSsWiC86iOVRktD DlcYgzz7FfcRs2rKToDCn cTN5eHHBsLUGkCJX3GO7o bGluZSANClxlcGljTmVzd WGvBqYjffG0OZXduIVnOG E5SM6zYTVusyzbVVSwFOB zDGN8QTsdlE86lILhKMAb MTZccGFyfVxwbGFpbiANC ydaNnpmqIzgs7AdlNYgQA lkIDUxMDAyIFxcZGIgIE9 NFjLfNFMcQNV6FHiuSmI8 MBq6RLSNWjJwTqDdUyIlW DGiVoAtEWl4ZIh4EZjEAc ZkOJDxSfGwYFm2XmT1ZZd yNyBcXHQgMiBcXGYgQXJp DJvnZPciaLHaQB3szRijh AKsiaraybV3EMTwLZzbJE CuMQIWL78NR9uhEwkCXDM ZXHBhciANClxlcGljTmVz dERvYzEgDQpcbHRycGFyX GxpbjBccmluMCANClxsdH ZgrBtlbzXpOJQcM3TlreL sATnvYBVmdh6ioQbpVGZs FJQjoXl2lPGlXGObsJEuU WVik4OkrSXbASYat7N5YD Hwa9D8GUKxO6ziVDtciNq kBeU6ddCoBoxxqDKlJmXa qULmPoAjJ15iUAOuvAEtp Cede6RxpBc6aFKoCJqaUI 7uQZWyYPEhKMJ1ZB8hgZe kXXYdGXRwtyBGJzyDXY8t eSAxMSwgMjAyMyAxOjQxI UUFHS3mbXYgOS6MUAHfqf XEVnmln9ZaTQW4WD1ysbM 6fV7pXDZupzMnzc5dJUDq rJWHkNO8UGsfgqQeR4bsk mgsJSS2ENCrTVI3S5rmMQ BWacCsIIQQvSB8FDxpwzD iYV0SAUN9XFi3JEFzeeVF ClxlcGljTmVzdERvYzBcd jI0FFBhgFBxNMX7TQ9lHZ MgjxtqSYUbUEXeZDA1YYw hpI78rIZnTCWeVJZebZVe nZonhQPgohPKSypffO0dU hYdf0flrXt7VYOLJkdfjR ZltcuvqbS3TNFam1ubgJc qs6LujRMjGQ9swChedL0f ZnMxNiANCn0= [facility] Work Phone: Performing Lab m9oboDWcUCFmlCZlNaAs M XDhVHRmy6wtXVDebZFsRm EwMzNcZnRuYmpcdWMxXGR tLaNqo3exv177nEClu7mt QDTkNjW7qIJgTRJebTEwP 757PXVoZEggh9wfd2OmKI JhuIEqa5D9WCBOxdxsmFy 4gTrkM38gj7A7GhxvN4ta SEXjIDZoM6MyKU2gTXTwE aj3VOD4LIG9GAMjGOYwU8 AbJH4tKOVvrRSwOJw4c8n irDyhPXKvBFE9u9xxBZcr qfHrTR9kbh5rxBr7v3thw zEgRGVmYXVsdCBQYXJhZ3 ZoaTuaYm7hjWx6fJpvNyi wJVP8Vqx7AM6wfw06nwi5 cHvvTXTcqmrkZiK0WGxsV OUfxdldUZo5YTdgAAHfcM K0BVOifDZpZ9YuCNhqHQ0 mseg4UWM4IHihNUXlAoF8 NDBcaGVhZGVyeTcyMFxmb 976PDC2QvQrYF5qA4Lel8 Y7iD6muZJrWPYryAVqJhQ wDUAbbf8vmYFtKAizk5Uw ZPX6wjY0zIKwnOCkXPOeV T21Ebyzn7FcKsudq1XhQ0 0fcYU2IZgln5pbZV8jExG 5kiBcATsus1ujcW4uZrN3 YGkwFS3nPS6dOWGjjE8cg mxjXHBnYnJkcmhlYWRccG japzGkCk7omNngYHN5ZRu tE2xjbJ0oEfA3WCgbR0pf gW6jKVv2NDlrtZI2CJUzk R7hMN3pwbbot0uuZPhzHA htUHWrxaG8wpBbGNAsnWL mL3JwfF1kVKQnXN3uaeta i9fuLYS5HXeqVARuZTP5O aCmVZFid2Lzihi3HoJud5 TeaTRwLMvyR37ug031UIY mlmHiM7krsEMnqrazdIEn kbatOLslvnA5EUDvQUCxJ WluXGYxXGZzMjJcbGFuZz EwMzNcaGljaFxmMVxkYmN gOVPkFXenM1beCpGrUwAw YpHNsLKfnw5ixIhiPWpcp CKznDGayYV2nX0yRNCkwd Zunm1wZFOyiYERmYY7KBn ainEbK6azjzrwZHA9NWZh OAN3G2dqUXJKlbMsBOMkO QQezRCkAATEGRP1SQU6PW ZlCWADSVObOKY4XUE7CZW wOTRccGFyXHBhclxwYXJk XHBsYWluXGYwXGZzMjRcc WeuqZ4uMjAnZeOsZeryRG 5gFBTyZ6afeRCiWXWxYTO qN5rnUgYmjA7cpEhqSUln ZjJcZnMyMlxsdHJjaCBMY XGujdM3z5X0HVrfvDZurf xmMVxmczIyXGxhbmcxMDM bTNcyI4pzFsVyAYOroEwb EMlmj6IbLZNzKGGiQgCuS DnsABX6g0G9WYbwgATkqo ZDKkDZXM2foROwwjhnSS0 ELlxwYXJ9 [facility] Work Phone: [facility] Work Phone: EGD Study observation Narrat iveon 08-31-2022 Radiology Study observation (narrative) [facility] CITRATE URINE 24HRon 023 Citric Acid, U, 24hr 472 mg/24 hr Normal 320-1240 [facility] Comment on above: Result Comment: This test was developed and its performance characteristics determined by [facility]. It has not been cleared or approved by the Food and Drug Administration. Performed By: #### A LPHPHN #### [facility] [address] [place] [address] Dr. Li Nagel Citric Acid, Urine 472 mg/L Normal Undefined [facility] Comment on above: Performed By: #### A LPHPHN #### [facility] [address] [place] [address] Dr. Li Nagel OXALATE 24HR URINEon 023 Oxalates, Urine 19 mg/L Normal Undefined [facility] Comment on above: Performed By: #### O X24HR #### [facility] [address] [address] [address] Li Nagel Oxalates, Urine 24hr 19 mg/24 hr Normal 4-31 [facility] Comment on above: Performed By: #### O X24HR #### [facility] [address] [place] [address] Dr. Li Nagel MAGNESIUM 24HR URINEon 07-09 Magnesium 24hr Urine 45.0 mg/24 hr Normal 12.0-293.0 [facility] Comment on above: Performed By: #### I MMUN G #### [facility] [address] [place] [address] Dr. Li Nagel Magnesium UR 4.5 mg/dL Normal Not Estab. [facility] Comment on above: Performed By: #### I MMUN G #### [facility] [address] [place] [address] Dr. Li Nagel PHOSPHORUS 24HR URINEon 06-22 Phosphorus, Urine 51.4 mg/dL Normal Not Estab. [facility] Comment on above: Performed By: #### P HOS 24 #### [facility] [address] [place] [address] Dr. Li Nagel Phosphorus, Urine 24hr 514 mg/24 hr Normal 261-1078 [facility] Comment on above: Performed By: #### P HOS 24 #### [facility] [address] [place] [address] Dr. Li Nagel URIC ACID 24 HR URINEon 06-22 Uric Acid, Urine 64.0 mg/dL Normal Not Estab. [facility] Comment on above: Performed By: #### A LPHPHN #### [facility] [address] [place] [address] Dr. Li Nagel Uric Acid, Urine 24hr 640.0 mg/24 hr Normal 173.7-902. 1 [facility] Comment on above: Performed By: #### A LPHPHN #### [facility] [address] [place] [address] Dr. Li Nagel CALCIUM 24 HR URINEon 2022 CALC, 24 HR UR 155.0 mg/24 hr Normal 100.0-300.0 [facility] Comment on above: Performed By: #### I MMUN G #### [facility] [address] [address] [address] Li Nagel UR CALCIUM 15.5 mg/dL Normal 5.1-21.0 [facility] Comment on above: Performed By: #### I MMUN G #### [facility] [address] [address] [address] Li Nagel UR TOT VOL 1000 ml/24 HR Normal [facility] Comment on above: Performed By: #### I MMUN G #### [facility] [address] [address] [address] Li Nagel Performed By: #### A LPHPHN #### [facility] [address] [place] [address] Dr. Li Nagel CREA 24 HR URINEon 3 CREA, 24 HR UR 1891.80 mg/24 hr Critically high 800.00 -1,800 .00 [facility] Comment on above: Performed By: #### A LPHPHN #### [facility] [address] [address] [address] Li Nagel URINE CREAT 189.18 mg/dL Normal 20.00-300.00 [facility] Comment on above: Performed By: #### A LPHPHN #### [facility] [address] [place] [address] Dr. Li Nagel PTH INTACTon 07-08-2022 PTH, Intact 41 pg/mL Normal 15-65 [facility] Comment on above: Performed By: #### H EPACUT #### [facility] [address] [address] [address] Li Nagel SODIUM 24 HR URINEon 023 NA, 24 HR UR 149 mmol/24 hr Normal 40-220 [facility] Comment on above: Performed By: #### A LPHPHN #### [facility] [address] [address] [address] Li Nagel Sodium (U) [Moles/Vol] 149 mmol/L Critically high 30-90 [facility] Comment on above: Performed By: #### A LPHPHN #### [facility] [address] [place] [address] Dr. Li Nagel BUNon 07-06-2022 Urea nitrogen [Mass/Vol] 11.0 mg/dL Normal 7.0-18.0 [facility] Comment on above: Performed By: #### B UN, URIC, CA, K, NA, CL, CO2, CREA #### [facility] [address] [place] [address] Dr. Li Nagel CALCIUMon 07-06-2022 Calcium [Mass/Vol] 9.0 mg/dL Normal 8.5-10.1 [facility] Comment on above: Performed By: #### B UN, URIC, CA, K, NA, CL, CO2, CREA #### [facility] [address] [place] [address] Dr. Li Nagel CHLORIDEon 07-06-2022 Chloride [Moles/Vol] 107 mmol/L Normal 98-107 [facility] Comment on above: Performed By: #### I MMUN G #### [facility] [address] [place] [address] Dr. Li Nagel CO2on 07-06-2022 CO2 [Moles/Vol] 29.2 mmol/L Normal 21.0-32.0 [facility] Comment on above: Performed By: #### I MMUN G #### [facility] [address] [place] [address] Dr. Li Nagel CREATININEon 07-06-2022 Creatinine [Mass/Vol] 0.97 mg/dL Normal 0.55-1.02 [facility] Comment on above: Performed By: #### B UN, URIC, CA, K, NA, CL, CO2, CREA #### [facility] [address] [place] [address] Dr. Li Nagel EGFR-AF SCOTTISH >60 Normal >=60 [facility] Comment on above: Performed By: #### B UN, URIC, CA, K, NA, CL, CO2, CREA #### [facility] [address] [address] [address] Li Nagel EGFR-NON AF SCOTTISH >60 Normal >=60 [facility] Comment on above: Performed By: #### B UN, URIC, CA, K, NA, CL, CO2, CREA #### [facility] [address] [address] [address] Li Nagel NAon 07-06-2022 Sodium [Moles/Vol] 143 mmol/L Normal 136-145 [facility] Comment on above: Performed By: #### I MMUN G #### [facility] [address] [address] [address] Li Nagel POTASSIUMon 07-06-2022 Potassium [Moles/Vol] 3.6 mmol/L Normal 3.5-5.1 [facility] Comment on above: Performed By: #### I MMUN G #### [facility] [address] [address] [address] Li Nagel URIC ACID SERUMon 07-06-2022 Urate [Mass/Vol] 4.7 mg/dL Normal 2.6-6.0 [facility] Comment on above: Performed By: #### B UN, URIC, CA, K, NA, CL, CO2, CREA #### [facility] [address] [address] [address] Li Nagel SURGICAL PATHOLOGYOrdered By : Karan Nieto on 07-04-2022 Case Report Surgical Pathology Report Case: [id number] Authorizing Provider: Carol Winn MD Collected: 06/30/2022 11:43 AM Ordering Location: Ambulatory Surgery Received: 06/30/2022 10:42 PM Pathologist: Karan Nieto MD Specimens: A) - DUODENUM BIOPSY, r/o celiac B) - STOMACH BIOPSY, r/o H pylori [facility] Work Phone: Diagnosis Comment p4murQFxOMRxsWTmEGIt N FqxljClVMDpdVZgX5Dlyi bsQYklQA8uQL2yoKqceQT ugQPzMZMxZgWrc3rat031 vCSer7xrQDVUelphfRp7b YtsP82vh9I6SkpsS55rxS OhOHL4LSPuQXLavWTjEZR tUIL9OEBvfCQmZ7hbYHCj VE9nwjzkILmuPSnaHRFwu QV9GDLneAJaU4YmDEBmVA lhEQBvqkz8WlPdCd8bzPG yeTcyMFxwYXJkXHBsYWlu YLStByMeSU6oVR8zgdNyv 2VkIGludHJhZXBpdGhlbG uipWXdeK0iaY8okKHbnne yuJ0hsDowYZFuh3TmA6Wu a1ZvybxqhT52ksJpFk3qe j9woNg5nOYiQYUxCQqpEg Oej0WiruXwrxInm9HiF2d zhHygauJ1rFVxWCPxrOki YyBkaXNlYXNlIGFuZCBvd OohnbPug17azUJra38nTS V3X5mnVTDqbIGztXtwJAN iy6Wtc7PqQBteVsImfFlx cmRctU0ueOGpwU2sKEigf Ygxh5YeC7VassImdBybyn crzP1sCZR0oL6vWZjyPW2 kIHNvbWUgbWVkaWNhdGlv pmLfQYGvxU3aG3DpRQHso nJgpMQ3kC4pEIymlLwsZR Kncl3zlzimcPRkw6Blb2e bE5qiSHJ8pULyVGYznMMe GrAeR00an4ykDJNyCOTdW wRkzHuoiOCgsNm6DGfgGA oqTDYfHW1kfUPowW== [facility] Work Phone: FINAL DIAGNOSIS g5msqKLmNHIuxSBcVLNp N VvyvtJyZOEemBEfC0Qwud uxQVvzKZ5nZZ0ncFsijOY cuBDhBWXlWnQis8ptk083 pZSta3iiDGWZegjvlGa8f EpcT85ud5K4JkooB90vrW FuOHC1TQQfQKNhcVNqJHH rMLB4LXFgcHMaS8tcJGFm BQ5ifunyXYqtANrwJSHnm BH3YGEmpFHwA8UkUUYaCM iuQFXonwn3OoDmOl2ybRH yeTcyMFxwYXJkXHBsYWlu SMMpPkOgJX3qPWVpTHBfk K2fEZXqx2KwiYremRHgTE 1fW74myOodcA71NSU5wG3 slIUmhBCrm2Pfx1d8kWTg e1IvVOpwsrqpoW14ylEgd ySbhSHiM3Y5rvOaAF4tHW keF7EjWPKpPSDxdoHqGMX waXRoZWxpYWwgbHltcGhv R6h6FRS3FIIzHETqd46xW P30XngrWMSbfGIcQYQbNJ K8u60dC9jvOLVkk1RfiJd afHSjKJ3iM9XqoLSuWoWp fCjthFbpKA87K59yGYJ5m UGwNFDjjx5jrQZpSCN2aC SoAXoehSgqp6OuG1EzkaG jzQfucvtyJRWsh1EvZBPy WDRhDTN4ewb6cZTxJHBvb n0= [facility] Work Phone: Gross Description f7jiiMFdMLLmnEDPBKOn M NIfYB3nnTcrpEv4uKusGG NaznC7nZQaCTmrs0zrKEM 7c7slszJKYezeFOWiYGfb AKDobljaSdY7ZVzzXFDup xzoUGj0MIaaOPHogHF9RF AkmQJvW1YsUZQbDQ3lfyj 7DPL5VRjgZULcGnE4OGJg MwNuHypvMLe7THVspfJ7C nb0DPJiNIWlfLMyz4L8FI thjyixRSSloMTnV990YRb sa5JqeFTfRTpbvWSyQJED GubaVqyzzSmrq5UhpUApW GlkIDUxMDAwIFxcbmggXF t6LBTiHInicGThJO3keRe pRvnmnPlmo0KsjLPxCXpg OZBvIQAzPOmoGXFdYK5BE kSqMDH2Fpc3Lhg1KqC3AK n4PYTAXwJpCyUgUbjfXTZ 9OLEbVSx5LGm3BJgBMwU2 FHSaPCquKBDlLLX3MNv3R FxcdCAyIFxcZiBBcmlhbC StDTEmFRbrpnF6NRFxNVq yCDDjLJTYV3LKVrXUTXLS K3ATJHjkWZOyJZssNDZaV 22yj9SUe0InKD9OTEp9yn QhyxknqW1yWEZqteXoMIf ivKUwP2fjPrDhLONJIXLn lYNdAKLdzeBnn4RwPYvtw iBhcmUgbXVsdGlwbGUgcG kuA8ToHI4cQSLvedznb98 quTX4oLOdzXShJDshjsPj AIEmplapyQ7aFH99AMatO Y7cEXglTV0rHUEnSiRDv7 AwtBp7IZF3Ck4siBCsBRC pbyAswnLkL2Ddw6V6oTBu HBdoWZVhL04gu1WCg8DjU HVcb1kgpMpgg5SlyMGsBF reINTxoAHtAYjceN5nRsF ew3kluQr4XUjunlT2HNZu pw0hiEiirN5uKBu0USxrO KPiN5MhX5CvGZnnFMR1AC AwMiBcXGRiICBPVlIgIiA tToS5ZAS7RUCvQXi4YApq M2OIOAPwTTS5WVp2QPw8V oL4DLi6WJIVId5zYTayRp o7XHZeLKK2DCj8WBQcDSK gMiBcXGYgQXJpYWwgXFxm uZCeUY7nsRnpaAIpuhtcq rU1OISoIOawNSJaKERDE7 7YP7yfSgwNZZQFIYEfziK NClxlcGljTmVzdERvYzEg DQpcbHRycGFyXGxpbjBcc mluMCANClxsdHJjaFxmcz CyOUPmV9YmrjZhHKkzPYI wdh1hnTqyEHCnWKX1c01h mHxhX9LjGJ8wUROvwazml 99wpCN3uUOsgUXvRTqnvb DlNZXtqaxqrO1gCJ6eBMp qLN9yPFnxTW7lGIMwTcXQ k6DicHp3SKT7Gd1zoACdP ZKifxCqogShP9Ahv0B0qM UuIFxwYXIgDQpccGFyIA0 LD2Xob8UqGUwpcCafBGNx h64cuWZbUi5lpDAuNRN3O ENsZXZlbGFuZCBDbGluaW UfLAo2SBKsEZTynPdbSRS 6CP9hWIWcVMRrfZPyRIcu S5phUWXiLILtrYIuFB8IV HBhciANCkpUIDAzLzEwLz PsMrGfJGc5ArGGHGsrMXJ eMFekFUYfE81fp3WQs4Rh GMCko8znzAacu4KdfCXrT XuyEMLsvUPnZDsrbK4xEa Lch3wopIi2YHkithA6CAX gkc6wtDjoqU0lVOcpc0kn MXT5XZWfaZXezFDmBOvqw NctdT0sSoAmCrc9NIknZW MfG8UdE2TyqsG9VEAcHPg uXGZzMTYgDQp9 [facility] Work Phone: Performing Lab f5orkXLyWCGtpGYrJcWc M MCiPXJaf9evHJMfsQKoMj EwMzNcZnRuYmpcdWMxXGR sIpFiu3qex817wSMhi3ux IXOqAeJ0nDYxZIYmwJIpT 377QJZiDQsmt8sxs0XiBR JdrGRie6G1BSKFqgiesPh 4fIkbF44gg7K1PhcrA4vn WBPxECZrC2FjXZ1nOMJcW hj9NDG5MYW2XNAgURNgV9 KdYI6gIJZjzNUmAAu2f6x pjYseLHDxHFZ7s0bsAQkn efKzSM2enu2weMq2y9jmg zEgRGVmYXVsdCBQYXJhZ3 DetYhfPe7slYh0dGlmFxg rVGF2Gav4AJ8pbm26ckb2 jIhlFTCbmiuaHkX6XPuwH UMbndlnRYx3HFzxFSYjwE B9CFCwpSGhL0IgSCnoWR1 keml8QSP8UOghKRMvChL9 NDBcaGVhZGVyeTcyMFxmb 974SJJ2VfGkOK8tQ9Mbl6 M2yH9lxBWoADSacNCfTiF qEKOett1ktFMnFFyqh7Yd XOX7pvZ1pMSdzTMzFHTgB N75Pcbqy5ZjQuwno4WbA5 9lyIN1NOtel0nzFG5wNxT 4sgSnASqek0splJ6fAaD8 GRpuXS8bJL9dKFCdtL3to mxjXHBnYnJkcmhlYWRccG pywiEfBp2jzRdkCCF2RDx rU2xlnK3kHfG7ICkhH4rk cR8eRTh2IFkdyZL8USWpr N5jTQ4fesklv2lyPWvhVM bhAYFubzL5euMqMOLbrXF nB1KwgC6gTWHrFG7qvvhx o1zbBZE0LIgsXIDpHYP8W dIqTVGcx0Psafc2VkOns9 SbqGOjBUuxG40mn872GFO wkrGnS1senEDtgcjfxUOy kxfjPErgdyX3ETMbHYBbX WluXGYxXGZzMjJcbGFuZz EwMzNcaGljaFxmMVxkYmN wVGIiCAvdC8txAdQmJkIg FvLNcQBfow8hkFhfGSzio SJzhYHboFJ3jG4eRFTupq Obzy3yTVEyvXZZkHH1ZBj qnaFhZ4cczherCDS4VDVk PAL0O4tvKYBOxaMsVYQaY EVwgJZpUTXUMIZ0PSF4DV CsDHBYPIEyWDN3RVE7ZPG wOTRccGFyXHBhclxwYXJk XHBsYWluXGYwXGZzMjRcc CfkcS4fJdUtOcOdFhwuGO 9aSEKvV0yytYNxTGMpCPH jN7vfOnVedH9xtXetDPyb ZjJcZnMyMlxsdHJjaCBMY ZNcwiP7f1O8XRclrSOnlk xmMVxmczIyXGxhbmcxMDM qDKwbB3zjCiJxFYPpiDqy CUism5QfJHFmHTWtWnCgT VukWLS1k4P4HRfcvTCpyo QCVeROSB4dzJGfbawlQP7 ELlxwYXJ9 [facility] Work Phone: [facility] Work Phone: EGD Study observation Miguelito bender 06-30-2022 [facility] Gastroenterology Gastrointestinal Endoscopy Patient Name: Orion Harper Procedure Date: 06/30/2022 11:41 AM Date of : 1990 Admit Type: Outpatient Age: 31 Room: [facility] 2 Gender: Female Note Status: [...] verified by the physician, the nurse, the pit inspector and the heat treat technician in the procedure room at 11:35 [...] gastric ulcers (more content not included)... [employer] [facility] Radiology Study observation (narrative) [facility] XR KUB 1 VIEWon 06-30-2022 XR [...] by: JACKSON ADKINS Date: 2022-06-30 07:02 Normal [facility] US ABD RT UPPER QUADRANTon 0 06-15-[address] [facility] [address] ABD/PEL WO IVCONon 2022 Radiology Result ACTIONABLE Abnormal [facility] No Panel Informationon 05-27 [facility] [id number] PHENOTYP INGon 05-11-2022 Tkhhl-4-Esuguvbhnfd, Serum 130 mg/dL Normal 100-188 [facility] Comment on above: Result Comment: Perf ormed at: CB Performed By: #### A LPHPHN #### [facility] [address] [place] [address] Dr. Li Nagel Phenotype (PI) MM Normal [facility] Comment on above: Result Comment: Phen [...] phenotype. Performed at: Performed By: #### A [facility] #### [facility] [address], [place] [address] Dr. Li Nagel HEREDITARY HEMOCHROMATOSIS, DNA ANALYSISon 05-11-2022 Hereditary Hemochromatosis Comment Normal [facility] Comment on above: Result Comment: Resu lt: c.845G>A (p.Vek639Kpe) - Not Detected c.187C>G (p.Whu85Nok) - Not Detected c.193A>T (p.Nzp08Gej) - Not Detected Not associated with increased [...] for patients who are homozygous for c.845G>A (p.Nnz718Zwh) and have yet to experience clinical symptoms. . Comments: The most common HFE variants associated with hereditary hemochromatosis are c.845G>A (p.Sht390Xge), c.187C>G (p.Vzg52Jak), c.193A>T (p.Ylx70Nsl). While patients homozygous for c.845G>A (p.Nkw071Lbs) are the most likely to present clinical symptoms, less than 10% develop clinically significant iron overload with tissue and organ damage. . Genetic counseling is recommended to discuss the potential clinical implications of positive results, as well as recommendations for testing family members. Genetic Coordinators are available for health care providers to discuss results at [phone] ([phone]). . Test Details: Three variants analyzed: c.845G>A (p.Wbx089Lgr), commonly referred to as C282Y c.187C>G (p.Wug99Was), commonly referred to as H63D c.193A>T (p.Zda47Ttf), commonly referred to as S65C . Methods/Limitations: [...] developed and its performance characteristics determined by [facility]. It has not been cleared or approved by the Food and Drug Administration. . References: Brodie BR, Yoav PC, Deborah KV, Raymond LW, Ramsey ; [employer] [employer] Liver Diseases. Diagnosis and management of hemochromatosis: 2011 practice guideline by the [place] [employer] Liver Diseases. Hepatology. 2011 Oct;54(1):328-43. doi: 10.1002/hep.25866. PMID: 68608547; PMCID: [id number]. Cora G, Olegario P, Fabio MCDONALD, Tabatha H, Love O, Zev S, Vazquez I, Kofi M, Sunitha S. [facility] best practice guidelines for the molecular genetic diagnosis of hereditary hemochromatosis (HH). Eur J Hum Margaret. 2016 Jul;24(4):479-95. doi: 10.1038/ejhg.2015.128. Epub 2014Oct 29. PMID: 69678286; PMCID: [id number]. . Anitra Hager, PhD, [facility] Dm Reyna, PhD Alexandro Rodriguez, PhD, [facility]AC[facility] Jhony Hammond, PhD, [facility] Oumar Avila, PhD, [facility] Rob Brand, PhD, [facility] Pascale Gracia, PhD, [facility] Lala Marvin, PhD, FAC Performed By: #### H EPACUT #### [facility] [address] [place] [address] Dr. Li Nagel DENY by IFAon 05-06-2022 Antinuclear Antibodies, IFA Negative Normal [facility] Comment on above: Result Comment: Nega tive <1:80 Borderline 1:80 Positive >1:80 ICAP nomenclature: AC-0 For more information about Hep-2 cell patterns use ANApatterns.org, the official website for the International Consensus on Antinuclear Antibody (DENY) Patterns (ICAP). Performed By: #### A LPHPHN #### [facility] [address] [place] [address] Dr. Li Nagel CERULOPLASMINon 05-05-2022 Ceruloplasmin 27.9 mg/dL Normal 19.0-39.0 [facility] Comment on above: Performed By: #### H EPACUT #### [facility] [address] [place] [address] Dr. Li Nagel HEPATITIS A AB IGMon 023 Hep A Ab, IgM Negative Normal Negative [facility] Comment on above: Performed By: #### I MMUN G #### [facility] [address] [place] [address] Dr. Li Nagel IMMUNOGLOBULIN G INDEX SERUM OR CSFon 05-05-2022 Albumin [Mass/Vol] 4.8 g/dL Normal 3.8-4.8 [facility] Comment on above: Performed By: #### I MMUN G #### [facility] [address] [place] [address] Dr. Li Nagel Albumin, CSF NSPINL Normal [facility] Comment on above: Result Comment: Test not performed. No spinal fluid received. contacted Radha at your facility on 05-05-2022 Performed By: #### I MMUN G #### [facility] [address] [place] [address] Dr. Li Nagel CSF IgG Index UPTCAL Normal [facility] Comment on above: Result Comment: Unab le to calculate result since non-numeric result obtained for component test. Performed By: #### I MMUN G #### [facility] [address] [place] [address] Dr. Li Nagel IgG, Quant, CSF NSPINL Normal [facility] Comment on above: Result Comment: Test not performed. No spinal fluid received. contacted Radha at your facility on 05-05-2022 Performed By: #### I MMUN G #### [facility] [address] [place] [address] Dr. Li Nagel IgG/Alb Ratio, CSF UPTCAL Normal [facility] Comment on above: Result Comment: Unab le to calculate result since non-numeric result obtained for component test. Performed By: #### I MMUN G #### [facility] [address] [place] [address] Dr. Li Nagel Immunoglobulin G, Qn, Serum 971 mg/dL Normal [id number] [facility] Comment on above: Performed By: #### I MMUN G #### [facility] [address] [place] [address] Dr. Li Nagel LIVER-KIDNEY MICROSOMAL (LKM ) ABon 05-05-2022 Liver-Kidney Microsomal Ab 1.3 Units Normal 0.0-20.0 [facility] Comment on above: Result Comment: Nega tive 0.0 - 20.0 Equivocal 20.1 - 24.9 Positive >24.9 . LKM type 1 antibodies are detected in patients with autoimmune hepatitis type 2 and in up to 8% of patients with chronic HCV infection. Performed By: #### H EPACUT #### [facility] [address] [place] [address] Dr. Li Nagel MITICHONDRIAL (M2) ANTIBODYo n 05-05-2022 Mitochondrial (M2) Antibody <20.0 Normal 0.0-20.0 [facility] Comment on above: Result Comment: Nega tive 0.0 - 20.0 Equivocal 20.1 - 24.9 Positive >24.9 . Mitochondrial (M2) Antibodies are found in 90-96% of patients with primary biliary cirrhosis. Performed By: #### A LPHPHN #### [facility] [address] [place] [address] Dr. Li Nagel SMOOTH MUSCLE ANTIBODYon Actin (Smooth Muscle) Antibody 9 Units Normal 0-19 [facility] Comment on above: Result Comment: Nega tive 0 - 19 Weak positive 20 - 30 Moderate to strong positive >30 . Actin Antibodies are found in 52-85% of patients with autoimmune hepatitis or chronic active hepatitis and in 22% of patients with primary biliary cirrhosis. Performed By: #### A LPHPHN #### [facility] [address] [address] [address] Li Nagel FERRITINon 05-03-2022 Ferritin [Mass/Vol] 319.0 ng/mL Critically high 6.2-137.0 [facility] Comment on above: Performed By: #### A LPHPHN #### [facility] [address] [place] [address] Dr. Li Nagel PAP ACOG PANEL 2: 30 to 65on 04-28-2022 . . Normal [facility] Comment on above: Result Comment: Perf ormed at: BA Performed By: #### I MMUN G #### [facility] [address] [address] [address] Li Nagel Age Gdln ACOG Testing 30-65 Normal [facility] Comment on above: Performed By: #### I MMUN G #### [facility] [address] [place] [address] Dr. Li Nagel DIAGNOSIS: Comment Normal [facility] Comment on above: Result Comment: NEGA TIVE FOR INTRAEPITHELIAL LESION OR MALIGNANCY. Performed at: BA Performed By: #### I MMUN G #### [facility] [address] [place] [address] Dr. Li Nagel HPV Aptima Negative Normal Negative [facility] Comment on above: Result Comment: This nucleic acid amplification test detects fourteen high-risk HPV types (16,18,31,33,35,39,45,51,52,56,58,59,66,68) without differentiation. Performed at: =G Performed By: #### I MMUN G #### [facility] [address] [place] [address] Dr. Li Nagel HPV Genotype Reflex Comment Normal [facility] Comment on above: Result Comment: Crit eria not met, HPV Genotype not performed. Performed at: BA Performed By: #### I MMUN G #### [facility] [address] [address] [address] Li Nagel Methodology: Comment Normal [facility] Comment on above: Result Comment: This liquid based ThinPrep(R) pap test was screened with the use of an image guided system. Performed at: WB Performed By: #### I MMUN G #### [facility] [address] [address] [address] Li Nagel Note: Comment Normal [facility] Comment on above: Result Comment: The [...] Performed By: #### I MMUN G #### [facility] [address] [address] [address] Li Nagel Performed by: Comment Normal [facility] Comment on above: Result Comment: Gretta Holly, [address] Stenographer (ASCP) Performed at: BA Performed By: #### I MMUN G #### [facility] [address] [address] [address] Li Nagel Specimen adequacy: Comment Normal [facility] Comment on above: Result Comment: Sati sfactory for evaluation. No endocervical component is identified. Performed at: BA Performed By: #### I MMUN G #### [facility] [address] [address] [address] Li Nagel HEPATITIS PANEL, ACUTEon HBsAg Screen Negative Normal Negative [facility] Comment on above: Performed By: #### H EPACUT #### [facility] [address] [address] [address] Li Nagel HCV AB <0.1 Normal 0.0-0.9 [facility] Comment on above: Performed By: #### H EPACUT #### [facility] [address], [place] [address] Dr. Li Nagel Hep A Ab, IgM Negative Normal Negative [facility] Comment on above: Performed By: #### H EPACUT #### [facility] [address] [place], [place] [address] Dr. Li Nagel Hep B Core Ab, IgM Negative Normal Negative [facility] Comment on above: Performed By: #### H EPACUT #### [facility] [address], [place] [address] Dr. Li Nagel Interpretation: Comment Normal [facility] Comment on above: Result Comment: Nega tive Not infected with HCV, unless recent infection is suspected or other evidence exists to indicate HCV infection. Performed By: #### H EPACUT #### [facility] [address] [place], [place] [address] Dr. Li Nagel US PELVIS AND TRANSVAGon [...] LAURIE CRUZ Date: 2021-12-22 09:50 Normal [facility] US ABD RT UPPER QUADRANTon 0 12-10-2021 [facility] US PELVIS AND TRANSVAGon US PELVIS [...] LAURIE CRUZ Date: 2021-10-28 13:01 Normal [facility] VAGINITIS/VAGINOSIS DNA PROB Kwasi 10-21-2021 Sharif species Negative Normal Negative [facility] Comment on above: Performed By: #### I MMUN G #### [facility] [address] [address] [address] Li Nagel Gardnerella vaginalis Negative Normal Negative [facility] Comment on above: Performed By: #### I MMUN G #### [facility] [address] [address] [address] Li Nagel Trichomonas vaginalis Negative Normal Negative [facility] Comment on above: Performed By: #### I MMUN G #### [facility] [address] [address] [address] Li Nagel CBC AUTO DIFFon 10-20-2021 BASO # 0.0 103/ul Normal 0.0-0.1 [facility] Comment on above: Performed By: #### A LPHPHN #### [facility] [address] [address] [address] Li Nagel Basophils/100 WBC (Bld) 0.4 % Normal 0.2-2.0 [facility] Comment on above: Performed By: #### A LPHPHN #### [facility] [address] [place] [address] Dr. Li Nagel EO # 0.2 103/ul Normal 0.0-0.7 [facility] Comment on above: Performed By: #### A LPHPHN #### [facility] [address] [place] [address] Dr. Li Nagel Eosinophils/100 WBC (Bld) 2.6 % Normal 0.9-7.0 [facility] Comment on above: Performed By: #### A LPHPHN #### [facility] [address] [place] [address] Dr. Li Nagel Erythrocyte distribution width (RBC) [Ratio] 12.6 % Normal 11.0-15.0 [facility] Comment on above: Performed By: #### A LPHPHN #### [facility] [address] [place] [address] Dr. Li Nagel Hematocrit (Bld) [Volume fraction] 40.0 % Normal 36.0-48.0 [facility] Comment on above: Performed By: #### A LPHPHN #### [facility] [address] [place] [address] Dr. Li Nagel Hemoglobin (Bld) [Mass/Vol] 13.3 g/dL Normal 12.0-16.0 [facility] Comment on above: Performed By: #### A LPHPHN #### [facility] [address] [place] [address] Dr. Li Nagel IG # 0.06 10e3/ul Critically high 0.00-0.03 [facility] Comment on above: Performed By: #### A LPHPHN #### [facility] [address] [place] [address] Dr. Li Nagel IG % 0.9 % Critically high 0.0-0.5 [facility] Comment on above: Performed By: #### A LPHPHN #### [facility] [address] [place] [address] Dr. Li Nagel LYMPH # 2.2 103/ul Normal 1.2-3.8 [facility] Comment on above: Performed By: #### A LPHPHN #### [facility] [address] [address] [address] Li Nagel Lymphocytes/100 WBC (Bld) 31.0 % Normal 20.5-60.0 [facility] Comment on above: Performed By: #### A LPHPHN #### [facility] [address] [address] [address] Li Nagel MANUAL DIFF REQ NO Normal [facility] Comment on above: Performed By: #### A LPHPHN #### [facility] [address] [place] [address] Dr. Li Nagel MCH (RBC) [Entitic mass] 31.4 pg Normal 26.7-34.0 [facility] Comment on above: Performed By: #### A LPHPHN #### [facility] [address] [place] [address] Dr. Li Nagel MCHC (RBC) [Mass/Vol] 33.3 g/dL Normal 29.9-35.2 [facility] Comment on above: Performed By: #### A LPHPHN #### [facility] [address] [place] [address] Dr. Li Nagel MCV (RBC) [Entitic vol] 94.3 fL Normal 81.0-99.0 [facility] Comment on above: Performed By: #### A LPHPHN #### [facility] [address] [place] [address] Dr. Li Nagel MONO # 0.5 103/ul Normal 0.3-0.8 [facility] Comment on above: Performed By: #### A LPHPHN #### [facility] [address] [place] [address] Dr. Li Nagel Monocytes/100 WBC (Bld) 6.9 % Normal 1.7-12.0 [facility] Comment on above: Performed By: #### A LPHPHN #### [facility] [address] [place] [address] Dr. Li Nagel NEUT # 4.1 103/ul Normal 1.4-6.5 [facility] Comment on above: Performed By: #### A LPHPHN #### [facility] [address] [address] [address] Li Nagel Neutrophils/100 WBC (Bld) 58.2 % Normal 43.0-75.0 [facility] Comment on above: Performed By: #### A LPHPHN #### [facility] [address] [place] [address] Dr. Li Nagel Platelet mean volume (Bld) [Entitic vol] 11.0 fL Normal 9.5-13.5 [facility] Comment on above: Performed By: #### A LPHPHN #### [facility] [address] [place] [address] Dr. Li Nagel PLT 211 103/ul Normal 150-450 [facility] Comment on above: Performed By: #### A LPHPHN #### [facility] [address] [place] [address] Dr. Li Nagel RBC 4.24 106/ul Normal 4.20-5.40 [facility] Comment on above: Performed By: #### A LPHPHN #### [facility] [address] [place] [address] Dr. Li Nagel WBC 7.0 103/ul Normal 4.0-11.0 [facility] Comment on above: Performed By: #### A LPHPHN #### [facility] [address] [place] [address] ABD/PELV W CONon [...] DOLORES MOON Date: 2021-10-20 14:53 Normal [facility] OCC BLD IMMUNO SCREENon 09-23 OCCULT BLOOD Negative Normal NEGATIVE [facility] Comment on above: Performed By: #### O BSCRN #### [facility] [address] [place] [address] Dr. Li Nagel PROF 14(COMP METB)on 022 Albumin [Mass/Vol] 3.7 g/dL Normal 3.4-5.0 [facility] Comment on above: Performed By: #### A LPHPHN #### [facility] [address] [place] [address] Dr. Li Nagel Albumin/Globulin [Mass ratio] 1.2 {ratio} Normal [facility] Comment on above: Performed By: #### A LPHPHN #### [facility] [address] [place] [address] Dr. Li Nagel ALP [Catalytic activity/Vol] 86 U/L Normal 46-116 [facility] Comment on above: Performed By: #### A LPHPHN #### [facility] [address] [place] [address] Dr. Li Nagel ALT [Catalytic activity/Vol] 109 U/L Critically high 14-59 [facility] Comment on above: Performed By: #### A LPHPHN #### [facility] [address] [place] [address] Dr. Li Nagel Anion gap [Moles/Vol] 7.8 mmol/L Normal [facility] Comment on above: Performed By: #### A LPHPHN #### [facility] [address] [address] [address] Li Nagel AST [Catalytic activity/Vol] 57 U/L Critically high 15-37 [facility] Comment on above: Performed By: #### A LPHPHN #### [facility] [address] [address] [address] Li Nagel Bilirubin [Mass/Vol] 0.4 mg/dL Normal 0.2-1.0 [facility] Comment on above: Performed By: #### A LPHPHN #### [facility] [address] [address] [address] Li Nagel Calcium [Mass/Vol] 8.9 mg/dL Normal 8.5-10.1 [facility] Comment on above: Performed By: #### A LPHPHN #### [facility] [address] [address] [address] Li Nagel Chloride [Moles/Vol] 104 mmol/L Normal 98-107 [facility] Comment on above: Performed By: #### A LPHPHN #### [facility] [address] [address] [address] Li Nagel CO2 [Moles/Vol] 27.7 mmol/L Normal 21.0-32.0 [facility] Comment on above: Performed By: #### A LPHPHN #### [facility] [address] [address] [address] Li Nagel Creatinine [Mass/Vol] 0.78 mg/dL Normal 0.55-1.02 [facility] Comment on above: Performed By: #### A LPHPHN #### [facility] [address] [address] [address] Li Nagel EGFR-AF SCOTTISH >60 Normal >=60 [facility] Comment on above: Performed By: #### A LPHPHN #### [facility] [address] [address] [address] Li Nagel EGFR-NON AF SCOTTISH >60 Normal >=60 [facility] Comment on above: Performed By: #### A LPHPHN #### [facility] [address] [address] [address] Li Nagel Globulin (S) [Mass/Vol] 3.2 g/dL Normal [facility] Comment on above: Performed By: #### A LPHPHN #### [facility] [address] [address] [address] Li Nagel Glucose [Mass/Vol] 104 mg/dL Normal 74-106 [facility] Comment on above: Performed By: #### A LPHPHN #### [facility] [address] [address] [address] Li Nagel Potassium [Moles/Vol] 3.5 mmol/L Normal 3.5-5.1 [facility] Comment on above: Performed By: #### A LPHPHN #### [facility] [address] [place] [address] Dr. Li Nagel Protein [Mass/Vol] 6.9 g/dL Normal 6.4-8.2 [facility] Comment on above: Performed By: #### A LPHPHN #### [facility] [address] [address] [address] Li Nagel Sodium [Moles/Vol] 136 mmol/L Normal 136-145 [facility] Comment on above: Performed By: #### A LPHPHN #### [facility] [address] [place] [address] Dr. Li Nagel Urea nitrogen [Mass/Vol] 10.0 mg/dL Normal 7.0-18.0 [facility] Comment on above: Performed By: #### A LPHPHN #### [facility] [address] [address] [address] Li Nagel Urea nitrogen/Creatinine [Mass ratio] 12.8 mg/mg Normal [facility] Comment on above: Performed By: #### A LPHPHN #### [facility] [address] [place] [address] Dr. Li Nagel XR LSPINE MIN 4 VIEWSon 05- XR LSPINE MIN 4 VIEWS EXAMINATION: XR [...] by: LAURIE CRUZ Date: 2021-09-06 15:05 Normal [facility] NM HEPATOBILIARY SCAN W EFon 08-27-2021 [...] by: JACKSON ADKINS Date: 2021-08-27 16:05 Normal [facility] Comprehensive Metabolic Pane yair 08-20-2021 Albumin [Mass/Vol] 5.0 g/dL Normal 3.6-5.1 [facility] Specialist Comment on above: Performed By: #### C MP #### [facility] [address], [place] [id number] Albumin/Globulin [Mass ratio] 2.1 {ratio} Normal 1.0-2.5 [facility] Specialist Comment on above: Performed By: #### C MP #### [facility] [address], [place] [id number] ALP [Catalytic activity/Vol] 110 U/L Normal 35-119 [facility] Specialist Comment on above: Performed By: #### C MP #### [facility] [address], [place] [id number] ALT [Catalytic activity/Vol] 71 U/L High 6-33 [facility] Comment on above: Result Comment: 03/24 Female reference range changed. Performed By: #### C MP #### [facility] [address], [place] [id number] Anion gap [Moles/Vol] 17 mmol/L Normal 12-20 [facility] Comment on above: Result Comment: Effe ctive 04/29/2019 reference range changed. Performed By: #### C MP #### [facility] [address], [place] [id number] AST [Catalytic activity/Vol] 69 U/L High 9-34 [facility] Comment on above: Performed By: #### C MP #### [facility] [address], [place] [id number] BUN/CREA 11 Ratio Normal 6-22 [facility] Comment on above: Performed By: #### C MP #### [facility] [address], [place] [id number] Calcium [Mass/Vol] 9.8 mg/dL Normal 8.6-10.2 [facility] Comment on above: Performed By: #### C MP #### [facility] [address], [place] [id number] Chloride [Moles/Vol] 99 mmol/L Normal 98-107 [facility] Comment on above: Performed By: #### C MP #### [facility] [address], [place] [id number] CO2 [Moles/Vol] 25 mmol/L Normal 20-31 [facility] Comment on above: Performed By: #### C MP #### [facility] [address], [place] [id number] Creatinine [Mass/Vol] 0.9 mg/dL Normal 0.6-1.4 [facility] Comment on above: Performed By: #### C MP #### [facility] [address], [place] [id number] eGFRAA 94 mL/min/1.73m2 Normal >60 [facility] Comment on above: Performed By: #### C MP #### [facility] [address], [place] [id number] eGFRNAA 78 mL/min/1.73m2 Normal >60 [facility] Comment on above: Performed By: #### C MP #### [facility] [address], [place] [id number] Globulin (S) [Mass/Vol] 2.4 g/dL Normal 1.9-3.7 [facility] Comment on above: Performed By: #### C MP #### [facility] [address], [place] [id number] Glucose [Mass/Vol] 100 mg/dL High 65-99 [facility] Specialist Comment on above: Result Comment: For FASTING Glucose --- ADA reference ranges: Normal 65-99 mg/dl Prediabetes 100-125 Diabetes >/= 126 Performed By: #### C MP #### [facility] [address], [place] [id number] Potassium [Moles/Vol] 3.8 mmol/L Normal 3.5-5.5 [facility] Comment on above: Performed By: #### C MP #### [facility] [address], [place] [id number] Protein [Mass/Vol] 7.4 g/dL Normal 6.1-8.1 [facility] Specialist Comment on above: Performed By: #### C MP #### [facility] [address], [place] [id number] Sodium [Moles/Vol] 137 mmol/L Normal 135-146 [facility] Specialist Comment on above: Performed By: #### C MP #### [facility] [address], [place] [id number] TBIL <0.3 Normal [facility] Comment on above: Performed By: #### C MP #### [facility] [address], [place] [id number] Urea nitrogen [Mass/Vol] 10 mg/dL Normal 7-25 [facility] Specialist Comment on above: Performed By: #### C MP #### [facility] [address], [place] [id number] US SINGLE QUAD RT UPPERon US SINGLE [...] by: JACKSON ADKINS Date: 2021-08-16 08:19 Normal [facility] Complete Blood Count with Au to Diffon 08-06-2021 Basophils (Bld) [#/Vol] 0.03 10*3/uL Normal 0.00-0.20 [facility] Lead [employer] Comment on above: Performed By: #### C MP, CBCAD, LIPD #### [facility] [address], [place] [id number] Basophils/100 WBC (Bld) 0.4 % Normal [facility] Lead [employer] Comment on above: Performed By: #### C MP, CBCAD, LIPD #### [facility] [address], [place] [id number] Eosinophils (Bld) [#/Vol] 0.11 10*3/uL Normal 0.02-0.50 [facility] Lead Software [employer] Comment on above: Performed By: #### C MP, CBCAD, LIPD #### [facility] [address], [place] [id number] Eosinophils/100 WBC (Bld) 1.4 % Normal [facility] Lead [employer] Comment on above: Performed By: #### C MP, CBCAD, LIPD #### [facility] [address], [place] [id number] Erythrocyte distribution width (RBC) [Ratio] 12.6 % Normal 11.0-15.0 [facility] Specialist Comment on above: Performed By: #### C MP, CBCAD, LIPD #### [facility] [address], [place] [id number] Hematocrit (Bld) [Volume fraction] 44.2 % Normal 35.0-47.0 [facility] Special[facility] Comment on above: Performed By: #### C MP, CBCAD, LIPD #### [facility] [address], [place] [id number] Hemoglobin (Bld) [Mass/Vol] 14.8 g/dL Normal 11.6-15.5 [facility] Specialist Comment on above: Performed By: #### C MP, CBCAD, LIPD #### [facility] [address], [place] [id number] Lymphocytes (Bld) [#/Vol] 2.2 10*3/uL Normal 0.9-3.9 [facility] Specialist Comment on above: Performed By: #### C MP, CBCAD, LIPD #### [facility] [address], [place] [id number] Lymphocytes/100 WBC (Bld) 28.1 % Normal [facility] Specialist Comment on above: Performed By: #### C MP, CBCAD, LIPD #### [facility] [address], [place] [id number] MCH (RBC) [Entitic mass] 31.2 pg Normal 27.0-33.0 [facility] Specialist Comment on above: Performed By: #### C MP, CBCAD, LIPD #### [facility] [address], [place] [id number] MCHC (RBC) [Mass/Vol] 33.5 g/dL Normal 32.0-36.0 [facility] Comment on above: Performed By: #### C MP, CBCAD, LIPD #### [facility] [address], [place] [id number] MCV (RBC) [Entitic vol] 93 fL Normal 80-100 [facility] Specialist Comment on above: Performed By: #### C MP, CBCAD, LIPD #### [facility] [address], [place] [id number] Monocytes (Bld) [#/Vol] 0.4 10*3/uL Normal 0.2-0.9 [facility] Specialist Comment on above: Performed By: #### C MP, CBCAD, LIPD #### [facility] [address], [place] [id number] Monocytes/100 WBC (Bld) 4.8 % Normal [facility] Specialist Comment on above: Performed By: #### C MP, CBCAD, LIPD #### [facility] [address], [place] [id number] Neutrophils (Bld) [#/Vol] 5.1 10*3/uL Normal 1.5-7.8 [facility] Specialist Comment on above: Performed By: #### C MP, CBCAD, LIPD #### [facility] [address], [place] [id number] Neutrophils/100 WBC (Bld) 64.3 % Normal [facility] Specialist Comment on above: Performed By: #### C MP, CBCAD, LIPD #### [facility] [address], [place] [id number] Platelet mean volume (Bld) [Entitic vol] 11.00 fL Normal 7.50-12.50 [facility] Specialist Comment on above: Performed By: #### C MP, CBCAD, LIPD #### [facility] [address], [place] [id number] Platelets (Bld) [#/Vol] 296 10*3/uL Normal 140-400 [facility] Specialist Comment on above: Performed By: #### C MP, CBCAD, LIPD #### [facility] [address], [place] [id number] RBC (Bld) [#/Vol] 4.74 10*6/uL Normal 3.90-5.20 [facility] Specialist Comment on above: Performed By: #### C MP, CBCAD, LIPD #### [facility] [address], [place] [id number] RDW-SD 43.4 fL Normal 37.0-50.0 [facility] Lead Software [employer] Engineer Comment on above: Performed By: #### C MP, CBCAD, LIPD #### [facility] [address], [place] [id number] WBC (Bld) [#/Vol] 8.0 10*3/uL Normal 3.8-11.0 [facility] [place] [employer] Comment on above: Performed By: #### C MP, CBCAD, LIPD #### [facility] [address], [place] [id number] Comprehensive Metabolic Pane yair 08-06-2021 Albumin [Mass/Vol] 5.2 g/dL High 3.6-5.1 [facility] [facility] [place] [facility] [employer] Comment on above: Performed By: #### C MP, CBCAD, LIPD #### [facility] [address], [place] [id number] Albumin/Globulin [Mass ratio] 2.1 {ratio} Normal 1.0-2.5 [facility] Lead Software [employer] Engineer Comment on above: Performed By: #### C MP, CBCAD, LIPD #### [facility] [address], [place] [id number] ALP [Catalytic activity/Vol] 115 U/L Normal 35-119 [facility] Lead [employer] Comment on above: Performed By: #### C MP, CBCAD, LIPD #### [facility] [address], [place] [id number] ALT [Catalytic activity/Vol] 101 U/L High 6-33 [facility] Lead Software [employer] Engineer Comment on above: Result Comment: 03/24 Female reference range changed. Performed By: #### C MP, CBCAD, LIPD #### [facility] [address], [place] [id number] Anion gap [Moles/Vol] 20 mmol/L Normal 12-20 [facility] Specialist Comment on above: Result Comment: Effe ctive 04/29/2019 reference range changed. Performed By: #### C MP, CBCAD, LIPD #### [facility] [address], [place] [id number] AST [Catalytic activity/Vol] 96 U/L High 9-34 [facility] Comment on above: Performed By: #### C MP, CBCAD, LIPD #### [facility] [address] [place], [place] [id number] BUN/CREA 9 Ratio Normal 6-22 [facility] Comment on above: Performed By: #### C MP, CBCAD, LIPD #### [facility] [address] [place], [place] [id number] Calcium [Mass/Vol] 9.9 mg/dL Normal 8.6-10.2 [facility] Comment on above: Performed By: #### C MP, CBCAD, LIPD #### [facility] [address] [place] [id number] Chloride [Moles/Vol] 106 mmol/L Normal 98-107 [facility] Comment on above: Performed By: #### C MP, CBCAD, LIPD #### [facility] [address] [place], [place] [id number] CO2 [Moles/Vol] 21 mmol/L Normal 20-31 [facility] Comment on above: Performed By: #### C MP, CBCAD, LIPD #### [facility] [address] [place] [id number] Creatinine [Mass/Vol] 0.9 mg/dL Normal 0.6-1.4 [facility] Comment on above: Performed By: #### C MP, CBCAD, LIPD #### [facility] [address] [place], [place] [id number] eGFRAA 90 mL/min/1.73m2 Normal >60 [facility] Comment on above: Performed By: #### C MP, CBCAD, LIPD #### [facility] [address] [place], [place] [id number] eGFRNAA 74 mL/min/1.73m2 Normal >60 [facility] Comment on above: Performed By: #### C MP, CBCAD, LIPD #### [facility] [address] [place], [place] [id number] Globulin (S) [Mass/Vol] 2.5 g/dL Normal 1.9-3.7 [place] [employer] Comment on above: Performed By: #### C NORBERTO, CBCAD, LIPD #### [facility] [address], [place] [id number] Glucose [Mass/Vol] 127 mg/dL High 65-99 [facility] [place] [employer] Comment on above: Result Comment: For FASTING Glucose --- ADA reference ranges: Normal 65-99 mg/dl Prediabetes 100-125 Diabetes >/= 126 Performed By: #### C NORBERTO, CBCAD, LIPD #### [facility] [address], [place] [id number] Potassium [Moles/Vol] 4.2 mmol/L Normal 3.5-5.5 [facility] Comment on above: Performed By: #### C NORBERTO, CBCAD, LIPD #### [facility] [address], [place] [id number] Protein [Mass/Vol] 7.7 g/dL Normal 6.1-8.1 [facility] Comment on above: Performed By: #### C NORBERTO CBCAD, LIPD #### [facility] [address], [place] [id number] Sodium [Moles/Vol] 143 mmol/L Normal 135-146 [facility] Lead Software Qa Engineer Comment on above: Performed By: #### C NORBERTO, CBCAD, LIPD #### [facility] [address], [place] [id number] TBIL <0.3 Normal [facility] Comment on above: Performed By: #### C NORBERTO, CBCAD, LIPD #### [facility] [address], [place] [id number] Urea nitrogen [Mass/Vol] 8 mg/dL Normal 7-25 [facility] Lead Software Qa Engineer Comment on above: Performed By: #### C NORBERTO CBCAD, LIPD #### [facility] [address], [place] [id number] Hemoglobin A1Con 08-06-2021 EAG 99.67 Normal [facility] Lead Software Qa Engineer Comment on above: Performed By: #### A 1C #### [facility] [address], [place] [id number] HbA1c (Bld) [Mass fraction] 5.1 % Normal 4.0-6.0 [facility] Specialist Comment on above: Performed By: #### A 1C #### [facility] [address], [place] [id number] Lipid Panelon 08-06-2021 Cholesterol [Mass/Vol] 190 mg/dL Normal 125-200 [facility] Comment on above: Result Comment: Low risk < 200mg/dL Borderline risk 201-239 mg/dl High risk > or equal to 240 Performed By: #### C NORBERTO, CBCAD, LIPD #### [facility] [address], [place] [id number] Cholesterol in HDL [Mass/Vol] 64 mg/dL Normal >40 [facility] Special[facility] Comment on above: Result Comment: High Cardiovascular Risk HDL <40 mg/dL Low Cardiovascular Risk HDL > or equal to 60 mg/dl Performed By: #### C NORBERTO, CBCAD, LIPD #### [facility] [address], [place] [id number] Cholesterol in LDL [Mass/Vol] 107 mg/dL Normal [facility] Comment on above: Result Comment: LDL ATP III CLASSIFICATION LDL less than 100 mg/dl Optimal LDL 100-129 mg/dl Near or above optimal LDL 130-159 Borderline high LDL 160-189 High LDL greater than 189 mg/dl Very High Performed By: #### C NORBERTO, CBCAD, LIPD #### [facility] [address], [place] [id number] Cholesterol in VLDL [Mass/Vol] 19 mg/dL Normal [facility] Comment on above: Performed By: #### C NORBERTO, CBCAD, LIPD #### [facility] [address], [place] [id number] Cholesterol.total/Chol esterol in HDL [Mass ratio] 3 {ratio} Normal [facility] Comment on above: Performed By: #### C NORBERTO, CBCAD, LIPD #### [facility] [address], [place] [id number] Triglyceride [Mass/Vol] 95 mg/dL Normal 30-150 [facility] Special[facility] Comment on above: Result Comment: TRIG ATPIII CLASSIFICATIONS TRIG less than 150 mg/dl Normal TRIG 150-199 mg/dl Borderline High TRIG 200-500 mg/dl High TRIG greather than 500 mg/dl Very High Performed By: #### C MP, CBCAD, LIPD #### [facility] [address] [place], [place] [id number] Q - CULTURE,URINE,ROUTINEon 06-04-2021 CULTURE, URINE, ROUTINE SEE NOTE Normal [facility] Lead Software Qa Engineer Comment on above: Order Comment: [facility] performed at: QPT, [facility], [address], [address] [place], [address], Insurance Sales Executive: Tim Dotson MD [facility] Collection Date/Time: [facility] Results Received Date/Time: [facility] Reported Date/Time: [id number] Result Comment: CULT URE, URINE, ROUTINE Micro Number: [id number] Test Status: Final Specimen Source: Not given Specimen Quality: Adequate Result: Mixed genital marie isolated. These superficial bacteria are not indicative of a urinary tract infection. No further organism identification is warranted on this specimen. If clinically indicated, recollect clean-catch, mid-stream urine and transfer immediately to Urine Culture Transport Tube. Performed By: #### [id number] #### [facility] [address] [place] [id number] MRI LUMBAR SPINE WO CONTRAST on 11-06-2018 [...] Naren Lagos MD 11/06/18 Final result Normal [facility] Vital Signs Date Time Vital Sign Value Performing Clinician Facility 12-30-2024 13:46-0400 Body height 157.5 cm Milton Dolce DPM FACFAS Work Phone: [facility] 12-30-2024 13:46-0400 Body mass index (BMI) [Ratio] 37.68 kg/m2 Milton Dolce DPM FACFAS Work Phone: [facility] 12-30-2024 13:46-0400 Body weight 93.44 kg Milton Dolce DPM FACFAS Work Phone: [facility] 12-30-2024 13:46-0400 Diastolic blood pressure 74 mm[Hg] Milton Dolce DPM FACFAS Work Phone: [facility] 12-30-2024 13:46-0400 Heart rate 91 /min Milton Dolce DPM FACFAS Work Phone: [facility] 12-30-2024 13:46-0400 Systolic blood pressure 115 mm[Hg] Milton Dolce DPM FACFAS Work Phone: [facility] 12-30-2024 09:14-0400 Body mass index (BMI) [Ratio] 36.28 kg/m2 Emma Reaper [employer]AL TRUCK [employer]IVER[employer] Work Phone: [facility] 12-30-2024 09:14-0400 Body weight 92.9 kg Emma Reaper REGIONAL TRUCK DRIVER[employer] Work Phone: [facility] 12-30-2024 09:14-0400 Diastolic blood pressure 94 mm[Hg] Emma Reaper REGIONAL TRUCK DRIVER[employer] Work Phone: [facility] 12-30-2024 09:14-0400 Systolic blood pressure 132 mm[Hg] Emma Reaper REGIONAL TRUCK DRIVER[employer] Work Phone: [facility] 12-26-2024 13:17-0400 Body height 157.5 cm Jatin Cabrera MD Work Phone: [facility] 12-26-2024 13:17-0400 Body mass index (BMI) [Ratio] 37.68 kg/m2 Jatin Cabrera MD Work Phone: [facility] 12-26-2024 13:17-0400 Body weight 93.44 kg Jatin Cabrera MD Work Phone: [facility] 12-26-2024 13:17-0400 Diastolic blood pressure 72 mm[Hg] Jatin Cabrera MD Work Phone: [facility] 12-26-2024 13:17-0400 Systolic blood pressure 110 mm[Hg] Jatin Cabrera MD Work Phone: [facility] 12-16-2024 09:45-0400 Body height 157.5 cm Giovani Hagen MD Work Phone: [facility] 12-16-2024 09:45-0400 Body mass index (BMI) [Ratio] 36.76 kg/m2 Giovani Hagen MD Work Phone: [facility] 12-16-2024 09:45-0400 Body weight 91.17 kg Giovani Hagen MD Work Phone: [facility] 12-16-2024 09:45-0400 Diastolic blood pressure 68 mm[Hg] Giovani Hagen MD Work Phone: [facility] 12-16-2024 09:45-0400 Heart rate 93 /min Giovani Hagen MD Work Phone: [facility] 12-16-2024 09:45-0400 SaO2% (BldA) [Mass fraction] 98 % Giovani Hagen MD Work Phone: [facility] 12-16-2024 09:45-0400 Systolic blood pressure 108 mm[Hg] Giovani Hagen MD Work Phone: [facility] 12-13-2024 10:18-0400 Body height 157.5 cm Milton ARCHIBALD Work Phone: [facility] 12-13-2024 10:18-0400 Body mass index (BMI) [Ratio] 36.76 kg/m2 Milton Adryanbran DPM FACFAS Work Phone: [facility] 12-13-2024 10:18-0400 Body weight 91.17 kg Milton Adryanbran DPM FACFAS Work Phone: [facility] 12-13-2024 10:18-0400 Diastolic blood pressure 75 mm[Hg] Milton Adryanbran DPM FACFAS Work Phone: [facility] 12-13-2024 10:18-0400 Heart rate 88 /min Milton Eloina DPM FACFAS Work Phone: [facility] 12-13-2024 10:18-0400 Systolic blood pressure 115 mm[Hg] Milton Eloina DPM FACFAS Work Phone: [facility] 12-12-2024 10:38-0400 Body height 157.5 cm Sandy Hemmer PA Work Phone: [facility] 12-12-2024 10:38-0400 Body mass index (BMI) [Ratio] 36.62 kg/m2 Sandy Hemmer PA Work Phone: [facility] 12-12-2024 10:38-0400 Body weight 90.81 kg Sandy Hemmer PA Work Phone: [facility] 12-12-2024 10:38-0400 Diastolic blood pressure 76 mm[Hg] Sandy Hemmer PA Work Phone: [facility] 12-12-2024 10:38-0400 Heart rate 89 /min Sandy Hemmer PA Work Phone: [facility] 12-12-2024 10:38-0400 Respiratory rate 16 /min Sandy Hemmer PA Work Phone: [facility] 12-12-2024 10:38-0400 SaO2% (BldA) [Mass fraction] 98 % Sandy Hemmer PA Work Phone: [facility] 12-12-2024 10:38-0400 Systolic blood pressure 112 mm[Hg] Sandy Hammond PA Work Phone: [facility] 10-10-2024 12:31-0400 Body height 157.5 cm Shannon Darden CLICKING MACHINE OPERATOR Work Phone: [facility] 10-10-2024 12:31-0400 Body mass index (BMI) [Ratio] 35.3 kg/m2 Shannon Darden CLICKING MACHINE OPERATOR Work Phone: [facility] 10-10-2024 12:31-0400 Body weight 87.54 kg Shannon Darden CLICKING MACHINE OPERATOR Work Phone: [facility] 10-09-2024 13:00-0400 Body mass index (BMI) [Ratio] 33.83 kg/m2 Mario Harper APRN.[employer] Work Phone: [facility] 10-09-2024 13:00-0400 Body weight 86.64 kg Mario Harper APRN.[employer] Work Phone: [facility] 10-09-2024 13:00-0400 Diastolic blood pressure 76 mm[Hg] Mario Harper APRN.[employer] Work Phone: [facility] 10-09-2024 13:00-0400 Heart rate 106 /min Mario Harper APRN.[employer] Work Phone: [facility] 10-09-2024 13:00-0400 SaO2% (BldA) [Mass fraction] 99 % Mario Harper APRN.[employer] Work Phone: [facility] 10-09-2024 13:00-0400 Systolic blood pressure 112 mm[Hg] Mario Harper APRN.[employer] Work Phone: [facility] 10-08-2024 11:42-0400 Body height 157.5 cm Deena Lyn CLICKING MACHINE OPERATOR Work Phone: [facility] 10-08-2024 11:42-0400 Body mass index (BMI) [Ratio] 34.75 kg/m2 Deena Lny CLICKING MACHINE OPERATOR Work Phone: [facility] 10-08-2024 11:42-0400 Body weight 86.18 kg Deena Riki CLICKING MACHINE OPERATOR Work Phone: [facility] 10-08-2024 11:42-0400 Diastolic blood pressure 88 mm[Hg] Deena Riki CLICKING MACHINE OPERATOR Work Phone: [facility] 10-08-2024 11:42-0400 Heart rate 110 /min Deena Potomac CLICKING MACHINE OPERATOR Work Phone: [facility] 10-08-2024 11:42-0400 Respiratory rate 16 /min Deena Potomac CLICKING MACHINE OPERATOR Work Phone: [facility] 10-08-2024 11:42-0400 SaO2% (BldA) [Mass fraction] 99 % Deena Riki CLICKING MACHINE OPERATOR Work Phone: [facility] 10-08-2024 11:42-0400 Systolic blood pressure 134 mm[Hg] Deena Riki CLICKING MACHINE OPERATOR Work Phone: [facility] 09-25-2024 10:25-0400 Body height 157.5 cm Deena Riki CLICKING MACHINE OPERATOR Work Phone: [facility] 09-25-2024 10:25-0400 Body mass index (BMI) [Ratio] 35.74 kg/m2 Deena Potomac CLICKING MACHINE OPERATOR Work Phone: [facility] 09-25-2024 10:25-0400 Body weight 88.63 kg Deena Potomac CLICKING MACHINE OPERATOR Work Phone: [facility] 09-25-2024 10:25-0400 Diastolic blood pressure 72 mm[Hg] Deena Riki CLICKING MACHINE OPERATOR Work Phone: [facility] 09-25-2024 10:25-0400 Heart rate 94 /min Deena Riki CLICKING MACHINE OPERATOR Work Phone: [facility] 09-25-2024 10:25-0400 Respiratory rate 17 /min Deena Potomac CLICKING MACHINE OPERATOR Work Phone: [facility] 09-25-2024 10:25-0400 SaO2% (BldA) [Mass fraction] 97 % Deena Riki CLICKING MACHINE OPERATOR Work Phone: [facility] 09-25-2024 10:25-0400 Systolic blood pressure 110 mm[Hg] Deena Lyn CLICKING MACHINE OPERATOR Work Phone: [facility] 09-17-2024 11:11-0400 Body height 157.5 cm Sandy Hemmer PA Work Phone: [facility] 09-17-2024 11:11-0400 Body mass index (BMI) [Ratio] 35.26 kg/m2 Sandy Hemmer PA Work Phone: [facility] 09-17-2024 11:11-0400 Body weight 87.45 kg Sandy Hemmer PA Work Phone: [facility] 09-17-2024 11:11-0400 Diastolic blood pressure 76 mm[Hg] Sandy Hemmer PA Work Phone: [facility] 09-17-2024 11:11-0400 Heart rate 75 /min Sandy Hemmer PA Work Phone: [facility] 09-17-2024 11:11-0400 Respiratory rate 16 /min Sandy Hemmer PA Work Phone: [facility] 09-17-2024 11:11-0400 SaO2% (BldA) [Mass fraction] 99 % Sandy Hemmer PA Work Phone: [facility] 09-17-2024 11:11-0400 Systolic blood pressure 112 mm[Hg] Sandy Hemmer PA Work Phone: [facility] 09-10-2024 13:37-0400 Body height 157.5 cm Giovani Hagen MD Work Phone: [facility] 09-10-2024 13:37-0400 Body mass index (BMI) [Ratio] 34.93 kg/m2 Giovani Hagen MD Work Phone: [facility] 09-10-2024 13:37-0400 Body weight 86.64 kg Giovani Hagen MD Work Phone: [facility] 09-10-2024 13:37-0400 Diastolic blood pressure 72 mm[Hg] Giovani Hagen MD Work Phone: [facility] 09-10-2024 13:37-0400 Heart rate 88 /min Givoani Hagen MD Work Phone: [facility] 09-10-2024 13:37-0400 SaO2% (BldA) [Mass fraction] 98 % Giovani Hagen MD Work Phone: [facility] 09-10-2024 13:37-0400 Systolic blood pressure 118 mm[Hg] Giovani Hagen MD Work Phone: [facility] 09-04-2024 16:21-0400 Body height 157.5 cm Milton Corneliusce DPM FACFAS Work Phone: [facility] 09-04-2024 16:21-0400 Body mass index (BMI) [Ratio] 33.65 kg/m2 Milton Dolce DPM FACFAS Work Phone: [facility] 09-04-2024 16:21-0400 Body weight 83.46 kg Milton Dolce DPM FACFAS Work Phone: [facility] 09-04-2024 16:21-0400 Diastolic blood pressure 80 mm[Hg] Milton Dolce DPM FACFAS Work Phone: [facility] 09-04-2024 16:21-0400 Heart rate 87 /min Milton Dolce DPM FACFAS Work Phone: [facility] 09-04-2024 16:21-0400 Systolic blood pressure 131 mm[Hg] Milton Corneliusce DPM FACFAS Work Phone: [facility] 09-02-2024 15:13-0400 Body height 157.5 cm Giovani Hagen MD Work Phone: [facility] 09-02-2024 15:13-0400 Body mass index (BMI) [Ratio] 33.65 kg/m2 Giovani Hagen MD Work Phone: [facility] 09-02-2024 15:13-0400 Body weight 83.46 kg Giovani Hagen MD Work Phone: [facility] 09-02-2024 15:13-0400 Diastolic blood pressure 82 mm[Hg] Giovani Hagen MD Work Phone: [facility] 09-02-2024 15:13-0400 Heart rate 113 /min Giovani Hagen MD Work Phone: [facility] 09-02-2024 15:13-0400 SaO2% (BldA) [Mass fraction] 97 % Giovani Hagen MD Work Phone: [facility] 09-02-2024 15:13-0400 Systolic blood pressure 132 mm[Hg] Giovani Hagen MD Work Phone: [facility] 08-21-2024 16:14-0400 Body height 157.5 cm Milton Dolce DPM FACFAS Work Phone: [facility] 08-21-2024 16:14-0400 Body mass index (BMI) [Ratio] 34.2 kg/m2 Milton Dolce DPM FACFAS Work Phone: [facility] 08-21-2024 16:14-0400 Body weight 84.82 kg Milton Dolce DPM FACFAS Work Phone: [facility] 08-21-2024 16:14-0400 Diastolic blood pressure 80 mm[Hg] Milton Dolce DPM FACFAS Work Phone: [facility] 08-21-2024 16:14-0400 Heart rate 80 /min Milton Dolce DPM FACFAS Work Phone: [facility] 08-21-2024 16:14-0400 Systolic blood pressure 127 mm[Hg] Milton Dolce DPM FACFAS Work Phone: [facility] 08-19-2024 08:48-0400 Body weight 77.11 kg Giovani Hagen MD Work Phone: [facility] 08-19-2024 07:30-0400 Body temperature 98.1 [degF] Giovani Hagen MD Work Phone: [facility] 08-19-2024 07:30-0400 Diastolic blood pressure 75 mm[Hg] Giovani Hagen MD Work Phone: [facility] 08-19-2024 07:30-0400 Heart rate 85 /min Giovani Hagen MD Work Phone: [facility] 08-19-2024 07:30-0400 Respiratory rate 18 /min Giovani Hagen MD Work Phone: [facility] 08-19-2024 07:30-0400 SaO2% (BldA) [Mass fraction] 97 % Giovani Hagen MD Work Phone: [facility] 08-19-2024 07:30-0400 Systolic blood pressure 114 mm[Hg] Giovani Hagen MD Work Phone: [facility] 08-16-2024 17:29-0400 Body height 157.48 cm Giovani Hagen MD Work Phone: [facility] 08-14-2024 16:39-0400 Body height 157.5 cm Milton Fraire DPM FACFAS Work Phone: [facility] 08-14-2024 16:39-0400 Body mass index (BMI) [Ratio] 34.2 kg/m2 Milton Dolce DPM FACFAS Work Phone: [facility] 08-14-2024 16:39-0400 Body weight 84.82 kg Milton Corneliusce DPM FACFAS Work Phone: [facility] 08-14-2024 16:39-0400 Diastolic blood pressure 80 mm[Hg] Milton Dolce DPM FACFAS Work Phone: [facility] 08-14-2024 16:39-0400 Heart rate 82 /min Milton Corneliusce DPM FACFAS Work Phone: [facility] 08-14-2024 16:39-0400 Systolic blood pressure 125 mm[Hg] Milton Corneliusce DPM FACFAS Work Phone: [facility] 08-13-2024 14:57-0400 Body height 160 cm Arsmoreeenaima Kochar MD Work Phone: [facility] 08-13-2024 14:57-0400 Body mass index (BMI) [Ratio] 31.89 kg/m2 Solo Mora MD Work Phone: [facility] 08-13-2024 14:57-0400 Body weight 81.65 kg Solo Mora MD Work Phone: [facility] 08-13-2024 14:57-0400 Diastolic blood pressure 96 mm[Hg] Solo Mora MD Work Phone: [facility] 08-13-2024 14:57-0400 Heart rate 92 /min Solo Mora MD Work Phone: [facility] 08-13-2024 14:57-0400 Systolic blood pressure 140 mm[Hg] Solo Mora MD Work Phone: [facility] 08-01-2024 14:31-0400 Body height 157.5 cm Giovani Hagen MD Work Phone: [facility] 08-01-2024 14:31-0400 Body mass index (BMI) [Ratio] 34.2 kg/m2 Giovani Hagen MD Work Phone: [facility] 08-01-2024 14:31-0400 Body weight 84.82 kg Giovani Hagen MD Work Phone: [facility] 08-01-2024 14:31-0400 Diastolic blood pressure 82 mm[Hg] Giovani Hagen MD Work Phone: [facility] 08-01-2024 14:31-0400 Heart rate 85 /min Giovani Hagen MD Work Phone: [facility] 08-01-2024 14:31-0400 SaO2% (BldA) [Mass fraction] 100 % Giovani Hagen MD Work Phone: [facility] 08-01-2024 14:31-0400 Systolic blood pressure 124 mm[Hg] Giovani Hagen MD Work Phone: [facility] 07-24-2024 16:04-0400 Body height 157.5 cm Milton Dolce DPM FACFAS Work Phone: [facility] 07-24-2024 16:04-0400 Body mass index (BMI) [Ratio] 34.75 kg/m2 Milton Dolce DPM FACFAS Work Phone: [facility] 07-24-2024 16:04-0400 Body weight 86.18 kg Milton Dolce DPM FACFAS Work Phone: [facility] 07-24-2024 16:04-0400 Diastolic blood pressure 88 mm[Hg] Milton Corneliusce DPM FACFAS Work Phone: [facility] 07-24-2024 16:04-0400 Heart rate 109 /min Milton Corneliusce DPM FACFAS Work Phone: [facility] 07-24-2024 16:04-0400 Systolic blood pressure 132 mm[Hg] Milton Fraire DPM FACFAS Work Phone: [facility] 07-10-2024 09:45-0400 Body height 158.8 cm Javy Boudreaux MD Work Phone: [facility] 07-10-2024 09:45-0400 Body mass index (BMI) [Ratio] 34.2 kg/m2 Javy Boudreaux MD Work Phone: [facility] 07-10-2024 09:45-0400 Body weight 86.18 kg Javy Boudreaux MD Work Phone: [facility] 07-10-2024 09:45-0400 Diastolic blood pressure 90 mm[Hg] Javy Boudreaux MD Work Phone: [facility] 07-10-2024 09:45-0400 Heart rate 108 /min Javy Boudreaux MD Work Phone: [facility] 07-10-2024 09:45-0400 Systolic blood pressure 131 mm[Hg] Javy Boudreaux MD Work Phone: [facility] 07-04-2024 15:30-0400 Body height 157.5 cm Giovani Hagen MD Work Phone: [facility] 07-04-2024 15:30-0400 Body mass index (BMI) [Ratio] 34.75 kg/m2 Giovani Hagen MD Work Phone: [facility] 07-04-2024 15:30-0400 Body weight 86.18 kg Giovani Hagen MD Work Phone: [facility] 07-04-2024 15:30-0400 Diastolic blood pressure 88 mm[Hg] Giovani Hagen MD Work Phone: [facility] 07-04-2024 15:30-0400 Heart rate 109 /min Giovani Hagen MD Work Phone: [facility] 07-04-2024 15:30-0400 SaO2% (BldA) [Mass fraction] 98 % Giovani Hagen MD Work Phone: [facility] 07-04-2024 15:30-0400 Systolic blood pressure 132 mm[Hg] Giovani Hagen MD Work Phone: [facility] 07-03-2024 14:55-0400 Body height 157.5 cm Milton Fraire DPM FACFAS Work Phone: [facility] 07-03-2024 14:55-0400 Body mass index (BMI) [Ratio] 34.93 kg/m2 Milton Corneliusce DPM FACFAS Work Phone: [facility] 07-03-2024 14:55-0400 Body weight 86.64 kg Milton Dolce DPM FACFAS Work Phone: [facility] 07-03-2024 14:55-0400 Diastolic blood pressure 79 mm[Hg] Milton Dolce DPM FACFAS Work Phone: [facility] 07-03-2024 14:55-0400 Heart rate 88 /min Milton Dolce DPM FACFAS Work Phone: [facility] 07-03-2024 14:55-0400 Systolic blood pressure 132 mm[Hg] Milton Dolce DPM FACFAS Work Phone: [facility] 06-26-2024 15:00-0500 Body height 157.5 cm Milton Eloina DPM FACFAS Work Phone: [facility] 06-26-2024 15:00-0500 Body mass index (BMI) [Ratio] 34.93 kg/m2 Milton Eloina DPM FACFAS Work Phone: [facility] 06-26-2024 15:00-0500 Body weight 86.64 kg Milton Adryanbran DPM FACFAS Work Phone: [facility] 06-26-2024 15:00-0500 Diastolic blood pressure 79 mm[Hg] Milton Adryanbran DPM FACFAS Work Phone: [facility] 06-26-2024 15:00-0500 Heart rate 88 /min Milton Eloina DPM FACFAS Work Phone: [facility] 06-26-2024 15:00-0500 Systolic blood pressure 132 mm[Hg] Milton Adryanbran DPM FACFAS Work Phone: [facility] 06-25-2024 14:38-0500 Body mass index (BMI) [Ratio] 34.9 kg/m2 Darwin Matty DO Work Phone: [facility] 06-25-2024 14:38-0500 Body weight 86.55 kg Darwin Matty DO Work Phone: [facility] 06-25-2024 14:38-0500 Diastolic blood pressure 78 mm[Hg] Darwin Matty DO Work Phone: [facility] 06-25-2024 14:38-0500 Systolic blood pressure 130 mm[Hg] Darwin Matty DO Work Phone: [facility] 06-19-2024 14:37-0500 Body height 157.5 cm Prateek Pedraza DPM Work Phone: [facility] 06-19-2024 14:37-0500 Body mass index (BMI) [Ratio] 35.85 kg/m2 Prateek Pedraza DPM Work Phone: [facility] 06-19-2024 14:37-0500 Body weight 88.91 kg Prateek Pedraza DPM Work Phone: [facility] 06-19-2024 14:37-0500 Respiratory rate 18 /min Prateek Pedraza DPM Work Phone: [facility] 06-06-2024 15:42-0500 Body height 157.5 cm Giovani Hagen MD Work Phone: [facility] 06-06-2024 15:42-0500 Body mass index (BMI) [Ratio] 35.85 kg/m2 Giovani Hagen MD Work Phone: [facility] 06-06-2024 15:42-0500 Body weight 88.91 kg Giovani Hagen MD Work Phone: [facility] 06-06-2024 15:42-0500 Diastolic blood pressure 82 mm[Hg] Giovani Hagen MD Work Phone: [facility] 06-06-2024 15:42-0500 Heart rate 96 /min Giovani Hagen MD Work Phone: [facility] 06-06-2024 15:42-0500 SaO2% (BldA) [Mass fraction] 99 % Giovani Hagen MD Work Phone: [facility] 06-06-2024 15:42-0500 Systolic blood pressure 118 mm[Hg] Giovani Hagen MD Work Phone: [facility] 05-29-2024 13:49-0500 Body mass index (BMI) [Ratio] 35.81 kg/m2 Ayleen JUSTICE Work Phone: [facility] 05-29-2024 13:49-0500 Body weight 88.81 kg Ayleen JUSTICE Work Phone: [facility] 05-29-2024 13:49-0500 Diastolic blood pressure 76 mm[Hg] Ayleen JUSTICE Work Phone: [facility] 05-29-2024 13:49-0500 Systolic blood pressure 122 mm[Hg] Ayleen JUSTICE Work Phone: [facility] 05-22-2024 14:30-0500 Diastolic blood pressure 92 mm[Hg] Carol Winn MD Work Phone: [facility] 05-22-2024 14:30-0500 Heart rate 102 /min Carol Winn MD Work Phone: [facility] 05-22-2024 14:30-0500 Respiratory rate 21 /min Carol Winn MD Work Phone: [facility] 05-22-2024 14:30-0500 SaO2% (BldA) [Mass fraction] 100 % Carol Winn MD Work Phone: [facility] 05-22-2024 14:30-0500 Systolic blood pressure 133 mm[Hg] Carol Winn MD Work Phone: [facility] 05-22-2024 13:40-0500 Body height 157.5 cm Carol Winn MD Work Phone: [facility] 05-22-2024 13:40-0500 Body mass index (BMI) [Ratio] 33.84 kg/m2 Carol Winn MD Work Phone: [facility] 05-22-2024 13:40-0500 Body weight 83.92 kg Carol Winn MD Work Phone: [facility] 05-15-2024 08:50-0500 Body height 157.5 cm Milton Fraire DPM FACFAS Work Phone: [facility] 05-15-2024 08:50-0500 Body mass index (BMI) [Ratio] 36.21 kg/m2 Milton Fraire DPM FACFAS Work Phone: [facility] 05-15-2024 08:50-0500 Body weight 89.81 kg Milton Fraire DPM FACFAS Work Phone: [facility] 05-15-2024 08:50-0500 Diastolic blood pressure 82 mm[Hg] Milton Fraire DPM FACFAS Work Phone: [facility] 05-15-2024 08:50-0500 Heart rate 92 /min Milton Fraire DPM FACFAS Work Phone: [facility] 05-15-2024 08:50-0500 Systolic blood pressure 132 mm[Hg] Milton Fraire DPM FACFAS Work Phone: [facility] 05-09-2024 14:55-0500 Body height 157.5 cm Giovani Hagen MD Work Phone: [facility] 05-09-2024 14:55-0500 Body mass index (BMI) [Ratio] 36.21 kg/m2 Giovani Hagen MD Work Phone: [facility] 05-09-2024 14:55-0500 Body weight 89.81 kg Giovani Hagen MD Work Phone: [facility] 05-09-2024 14:55-0500 Diastolic blood pressure 88 mm[Hg] Giovani Hagen MD Work Phone: [facility] 05-09-2024 14:55-0500 Heart rate 101 /min Giovani Hagen MD Work Phone: [facility] 05-09-2024 14:55-0500 SaO2% (BldA) [Mass fraction] 96 % Giovani Hagen MD Work Phone: [facility] 05-09-2024 14:55-0500 Systolic blood pressure 134 mm[Hg] Giovani Hagen MD Work Phone: [facility] 05-08-2024 15:13-0500 Body height 157.5 cm Prateek Pedraza DPM Work Phone: [facility] 05-08-2024 15:13-0500 Body mass index (BMI) [Ratio] 35.3 kg/m2 Prateek Pedraza DPM Work Phone: [facility] 05-08-2024 15:13-0500 Body weight 87.54 kg Prateek Pedraza DPM Work Phone: [facility] 05-08-2024 15:13-0500 Respiratory rate 18 /min Prateek Pedraza DPM Work Phone: [facility] 04-30-2024 15:10-0500 Body mass index (BMI) [Ratio] 35.12 kg/m2 Darwin Matty DO Work Phone: [facility] 04-30-2024 15:10-0500 Body weight 87.09 kg Darwin Matty DO Work Phone: [facility] 04-30-2024 15:10-0500 Diastolic blood pressure 74 mm[Hg] Darwin Matty DO Work Phone: [facility] 04-30-2024 15:10-0500 Systolic blood pressure 122 mm[Hg] Darwin Matty DO Work Phone: [facility] 04-26-2024 14:12-0500 Body mass index (BMI) [Ratio] 33.87 kg/m2 Iliana Yacapraro PA-C Work Phone: [facility] 04-26-2024 14:12-0500 Body weight 84 kg Iliana Yacapraro PA-C Work Phone: [facility] 04-26-2024 14:12-0500 Diastolic blood pressure 92 mm[Hg] Iliana Yacapraro PA-C Work Phone: [facility] 04-26-2024 14:12-0500 Heart rate 84 /min Iliana Yacapraro PA-C Work Phone: [facility] 04-26-2024 14:12-0500 Systolic blood pressure 133 mm[Hg] Iliana Yacapraro PA-C Work Phone: [facility] 04-18-2024 16:42-0500 Body mass index (BMI) [Ratio] 35.67 kg/m2 Josephine Gilman CLICKING MACHINE OPERATOR Work Phone: [facility] 04-18-2024 16:42-0500 Body temperature 97.7 [degF] Josephine Gilman NP Work Phone: [facility] 04-18-2024 16:42-0500 Body weight 88.45 kg Josephine Kalina CLICKING MACHINE OPERATOR Work Phone: [facility] 04-18-2024 16:42-0500 Diastolic blood pressure 82 mm[Hg] Josephine Gilman CLICKING MACHINE OPERATOR Work Phone: [facility] 04-18-2024 16:42-0500 Heart rate 112 /min Josephinelatosha Gilman CLICKING MACHINE OPERATOR Work Phone: [facility] Comment on above: repeat pulse 96bpm apical. 04-18-2024 16:42-0500 Respiratory rate 20 /min Josephine Gilman CLICKING MACHINE OPERATOR Work Phone: [facility] 04-18-2024 16:42-0500 SaO2% (BldA) [Mass fraction] 97 % Josephine Gilman CLICKING MACHINE OPERATOR Work Phone: [facility] 04-18-2024 16:42-0500 Systolic blood pressure 128 mm[Hg] Josephine Gilman CLICKING MACHINE OPERATOR Work Phone: [facility] 04-03-2024 10:39-0500 Body height 157.5 cm Deena Lyn CLICKING MACHINE OPERATOR Work Phone: [facility] 04-03-2024 10:39-0500 Body mass index (BMI) [Ratio] 35.01 kg/m2 Deena Lyn CLICKING MACHINE OPERATOR Work Phone: [facility] 04-03-2024 10:39-0500 Body weight 86.82 kg Deena Lyn CLICKING MACHINE OPERATOR Work Phone: [facility] 04-03-2024 10:39-0500 Diastolic blood pressure 82 mm[Hg] Deena Lyn CLICKING MACHINE OPERATOR Work Phone: [facility] 04-03-2024 10:39-0500 Heart rate 101 /min Deena Lyn CLICKING MACHINE OPERATOR Work Phone: [facility] 04-03-2024 10:39-0500 Respiratory rate 16 /min Deena Lyn CLICKING MACHINE OPERATOR Work Phone: [facility] 04-03-2024 10:39-0500 SaO2% (BldA) [Mass fraction] 99 % Deena Lyn CLICKING MACHINE OPERATOR Work Phone: [facility] 04-03-2024 10:39-0500 Systolic blood pressure 122 mm[Hg] Deena Lyn CLICKING MACHINE OPERATOR Work Phone: [facility] 04-01-2024 08:40-0500 Body height 157.5 cm Giovani Hagen MD Work Phone: [facility] 04-01-2024 08:40-0500 Body mass index (BMI) [Ratio] 34.39 kg/m2 Giovani Hagen MD Work Phone: [facility] 04-01-2024 08:40-0500 Body weight 85.28 kg Giovani Hagen MD Work Phone: [facility] 04-01-2024 08:40-0500 Diastolic blood pressure 88 mm[Hg] Giovani Hagen MD Work Phone: [facility] 04-01-2024 08:40-0500 Heart rate 88 /min Giovani Hagen MD Work Phone: [facility] 04-01-2024 08:40-0500 SaO2% (BldA) [Mass fraction] 94 % Giovani Hagen MD Work Phone: [facility] 04-01-2024 08:40-0500 Systolic blood pressure 132 mm[Hg] Giovani Hagen MD Work Phone: [facility] 03-20-2024 16:29-0500 Body mass index (BMI) [Ratio] 34.93 kg/m2 Darwin Matty DO Work Phone: [facility] 03-20-2024 16:29-0500 Body weight 86.64 kg Darwin Matty DO Work Phone: [facility] 03-20-2024 16:29-0500 Diastolic blood pressure 72 mm[Hg] Darwin Matty DO Work Phone: [facility] 03-20-2024 16:29-0500 Systolic blood pressure 118 mm[Hg] Darwin Matty DO Work Phone: [facility] 02-06-2024 09:14-0400 Body height 157.5 cm Giovani Hagen MD Work Phone: [facility] 02-06-2024 09:14-0400 Body mass index (BMI) [Ratio] 34.93 kg/m2 Giovani Hagen MD Work Phone: [facility] 02-06-2024 09:14-0400 Body weight 86.64 kg Giovani Hagen MD Work Phone: [facility] 02-06-2024 09:14-0400 Diastolic blood pressure 88 mm[Hg] Giovani Hagen MD Work Phone: [facility] 02-06-2024 09:14-0400 Heart rate 106 /min Giovani Hagen MD Work Phone: [facility] 02-06-2024 09:14-0400 SaO2% (BldA) [Mass fraction] 99 % Giovani Hagen MD Work Phone: [facility] 02-06-2024 09:14-0400 Systolic blood pressure 130 mm[Hg] Giovani Hagen MD Work Phone: [facility] 01-22-2024 13:37-0400 Diastolic blood pressure 74 mm[Hg] Darwin Matty DO Work Phone: [facility] 01-22-2024 13:37-0400 Systolic blood pressure 112 mm[Hg] Darwin Matty DO Work Phone: [facility] 01-09-2024 16:00-0400 Body height 157.5 cm Giovani Hagen MD Work Phone: [facility] 01-09-2024 16:00-0400 Body mass index (BMI) [Ratio] 34.75 kg/m2 Giovani Hagen MD Work Phone: [facility] 01-09-2024 16:00-0400 Body weight 86.18 kg Giovani Hagen MD Work Phone: [facility] 01-09-2024 16:00-0400 Diastolic blood pressure 84 mm[Hg] Giovani Hagen MD Work Phone: [facility] 01-09-2024 16:00-0400 Heart rate 96 /min Giovani Hagen MD Work Phone: [facility] 01-09-2024 16:00-0400 SaO2% (BldA) [Mass fraction] 98 % Giovani Hagen MD Work Phone: [facility] 01-09-2024 16:00-0400 Systolic blood pressure 124 mm[Hg] Giovani Hagen MD Work Phone: [facility] 12-28-2023 15:17-0400 Blood Pressure Location BHAVESH OLEG [facility] 12-28-2023 15:17-0400 Diastolic blood pressure 100 mm[Hg] BHAVESH OLEG [facility] 12-28-2023 15:17-0400 Heart rate 101 /min BHAVESH OLEG [facility] 12-28-2023 15:17-0400 Respiratory rate 18 /min BHAVESH OLEG [facility] 12-28-2023 15:17-0400 Systolic blood pressure 146 mm[Hg] BHAVESH OLEG [facility] 12-26-2023 15:07-0400 Body height 157.5 cm Giovani Hagen MD Work Phone: [facility] 12-26-2023 15:07-0400 Body mass index (BMI) [Ratio] 34.2 kg/m2 Giovani Hagen MD Work Phone: [facility] 12-26-2023 15:07-0400 Body weight 84.82 kg Giovani Hagen MD Work Phone: [facility] 12-26-2023 15:07-0400 Diastolic blood pressure 78 mm[Hg] Giovani Hagen MD Work Phone: [facility] 12-26-2023 15:07-0400 Heart rate 98 /min Giovani Hagen MD Work Phone: [facility] 12-26-2023 15:07-0400 SaO2% (BldA) [Mass fraction] 98 % Giovani Hagen MD Work Phone: [facility] 12-26-2023 15:07-0400 Systolic blood pressure 112 mm[Hg] Giovani Hagen MD Work Phone: [facility] 12-19-2023 15:01-0400 Body height 157.5 cm Solo Mora MD Work Phone: [facility] 12-19-2023 15:01-0400 Body mass index (BMI) [Ratio] 34.39 kg/m2 Solo Mora MD Work Phone: [facility] 12-19-2023 15:01-0400 Body weight 85.28 kg Solo Mora MD Work Phone: [facility] 12-19-2023 15:01-0400 Diastolic blood pressure 91 mm[Hg] Solo Mora MD Work Phone: [facility] 12-19-2023 15:01-0400 Heart rate 94 /min Solo Mora MD Work Phone: [facility] 12-19-2023 15:01-0400 Systolic blood pressure 127 mm[Hg] Solo Mora MD Work Phone: [facility] 11-02-2022 13:10-0400 Body height 157.5 cm Samuel Freeman MD Work Phone: [facility] 11-02-2022 13:10-0400 Body weight 71 kg Samuel Freeman MD Work Phone: [facility] 11-02-2022 13:10-0400 Diastolic blood pressure 97 mm[Hg] Samuel Freeman MD Work Phone: [facility] 11-02-2022 13:10-0400 Heart rate 100 /min Samuel Freeman MD Work Phone: [facility] 11-02-2022 13:10-0400 Systolic blood pressure 141 mm[Hg] Samuel Freeman MD Work Phone: [facility] 08-31-2022 15:30-0400 Diastolic blood pressure 91 mm[Hg] Carol Winn MD Work Phone: [facility] 08-31-2022 15:30-0400 Heart rate 99 /min Carol Winn MD Work Phone: [facility] 08-31-2022 15:30-0400 Respiratory rate 24 /min Carol Winn MD Work Phone: [facility] 08-31-2022 15:30-0400 SaO2% (BldA) [Mass fraction] 97 % Carol Winn MD Work Phone: [facility] 08-31-2022 15:30-0400 Systolic blood pressure 140 mm[Hg] Carol Winn MD Work Phone: [facility] 08-31-2022 14:10-0400 Body height 157.5 cm Carol Winn MD Work Phone: [facility] 08-31-2022 14:10-0400 Body mass index (BMI) [Ratio] 33.84 kg/m2 Carol Winn MD Work Phone: [facility] 08-31-2022 14:10-0400 Body weight 83.92 kg Carol Winn MD Work Phone: [facility] 06-30-2022 12:40-0500 Diastolic blood pressure 85 mm[Hg] Carol Winn MD Work Phone: [facility] 03-09-2023 12:40-0500 Heart rate 70 /min Carol Winn MD Work Phone: [facility] 06-30-2022 12:40-0500 Respiratory rate 12 /min Carol Winn MD Work Phone: [facility] 06-30-2022 12:40-0500 SaO2% (BldA) [Mass fraction] 100 % Carol Winn MD Work Phone: [facility] 06-30-2022 12:40-0500 Systolic blood pressure 120 mm[Hg] Carol Winn MD Work Phone: [facility] 06-30-2022 11:18-0500 Body height 157.5 cm Carol Winn MD Work Phone: [facility] 06-30-2022 11:18-0500 Body mass index (BMI) [Ratio] 33.84 kg/m2 Carol Winn MD Work Phone: [facility] 06-30-2022 11:18-0500 Body weight 83.92 kg Carol Winn MD Work Phone: [facility] 05-27-2022 11:29-0500 Body weight 85.73 kg Carol Winn MD Work Phone: [facility] 05-27-2022 11:29-0500 Diastolic blood pressure 92 mm[Hg] Carol Winn MD Work Phone: [facility] 05-27-2022 11:29-0500 Heart rate 102 /min Carol Winn MD Work Phone: [facility] 05-27-2022 11:29-0500 Systolic blood pressure 145 mm[Hg] Carol Winn MD Work Phone: [facility] 05-03-2022 15:30-0500 Body height 158.75 cm Imad Asaad Other [employer] Other 05-03-2022 15:30-0500 Body mass index (BMI) [Ratio] 34.55 kg/m2 Imad Asaad Other [employer] Other 05-03-2022 15:30-0500 Body weight 87.09 kg Imad Asaad Other [employer] Other 05-03-2022 15:30-0500 Diastolic blood pressure 91 mm[Hg] Imad Asaad Other [employer] Other 05-03-2022 15:30-0500 Systolic blood pressure 130 mm[Hg] Imad Asaad Other [employer] Other 05-03-2022 14:47-0500 Body weight 0 kg MD Giovani Hagen Work Phone: [facility] Encounters Encounter Date Encounter Type Care Provider Facility Start: 12-31-2025 ambulatory Iliana Cramer Facility:[facility] Start: 12-31-2024 End: 12-31-2024 [facility]ulatory [facility] Start: 12-31-2024 End: 12-31-2024 Patient encounter procedure Iliana Cramer [facility] [place] Start: 12-30-2024 End: 12-30-2024 ambulatory Madhuri MISHRA Facility:[facility] [place] Start: 12-30-2024 End: 12-30-2024 Bamboo flowsheet Milton Fraire DPM FACFAS Work Phone: [facility] Start: 12-30-2024 End: 12-30-2024 Bamboo flowsheet Milton Fraire DPM FACFAS [facility] Start: 12-30-2024 End: 12-30-2024 Office outpatient visit 15 minutes Milton Fraire DPM FACFAS Work Phone: [facility] Comment on above: Other synovitis and tenosynovitis, right ankle and foot (Primary Dx); Right foot pain; Other enthesopathy of right foot and ankle Start: 12-30-2024 End: 12-30-2024 ambulatory MILTON FRAIRE Not Available Start: 12-30-2024 End: 12-30-2024 Patient encounter procedure Emma Ying APRN.[employer] Work Phone: Gynecology Comment on above: Chronic pelvic pain in female (Primary D x); Other specified dyspareunia; Pelvic pain in female; High-tone pelvic floor dysfunction; Vulvodynia; Stress incontinence; Irritable bowel syndrome with constipation; Vaginal dryness Start: 12-30-2024 End: 12-30-2024 ambulatory JAVY BOUDREAUX Facility:[facility] Start: 12-26-2024 End: 12-26-2024 Office outpatient visit 25 minutes Jatin Cabrera MD Work Phone: [facility] Neurology Comment on above: Lumbar radiculopathy (Primary Dx); Numbness and tingling; Atypical migraine Start: 12-26-2024 End: 12-26-2024 ambulatory JATIN CABRERA Not Available Start: 12-16-2024 End: 12-16-2024 Telephone encounter Sandy JUSTICE Work Phone: [facility]: dose correction on med Start: 12-16-2024 End: 12-16-2024 Office outpatient visit 25 minutes Giovani Hagen MD Work Phone: [facility] Comment on above: Nonalcoholic steatohepatitis (ENGLISH) (Rosanne osman Dx); PTSD (post-traumatic stress disorder) ; Major depressive disorder, recurrent, moderate (HCC); Lumbar radiculopathy; Weight gain; Borderline diabetes; Morbid (severe) obesity due to excess calories ([facility]-HCC); Impaired fasting glucose; Obesity, class 2; Body mass index (BMI) 36.0-36.9, adult Start: 12-16-2024 End: 12-16-2024 ambulatory GIOVANI HAGEN Not Available Start: 12-13-2024 End: 12-13-2024 Office outpatient visit 25 minutes Milton Fraire DPM FACFAS Work Phone: [facility] Comment on above: Sprain of calcaneofibular ligament of ri ght ankle, initial encounter (Primary Dx); Right foot pain; Other synovitis and tenosynovitis, right ankle and foot; Other enthesopathy of right foot and ankle Start: 12-13-2024 End: 12-13-2024 ambulatory MILTON FRAIRE Not Available Start: 12-12-2024 End: 12-12-2024 Bamboo flowsheet Sandy Hammond PA Work Phone: [facility] Start: 12-12-2024 End: 12-12-2024 Bamboo flowsheet Sandy JUSTICE Work Phone: [facility] Start: 12-12-2024 End: 12-12-2024 Clinisync Result Encounter Sandy JUSTICE Work Phone: [facility] External Department Unsolicited Start: 12-12-2024 End: 12-12-2024 Office outpatient visit 25 minutes Sandy JUSTICE Work Phone: [facility] Comment on above: Elevated liver enzymes (Primary Dx); Nephrocalcinosis; Bilateral nephrolithiasis; Right ovarian cyst; Hypokalemia; Weight gain; Attention deficit hyperactivity disorder (ADHD), predominantly inattentive type ; History of alcohol dependence (HCC); Impaired fasting glucose; Other fatigue; Anxiety; Other chronic pain Start: 12-12-2024 End: 12-12-2024 ambulatory SANDY HAMMOND Not Available Start: 12-09-2024 End: 12-09-2024 ambulatory MILTON FRAIRE Not Available Start: 10-30-2024 End: 10-30-2024 Refill Sandy Hammond PA Work Phone: [facility] Comment on above: Anxiety; Bipolar disorder, in partial remission, most recent episode manic (HCC) Start: 10-23-2024 End: 10-23-2024 Clinisync Result Encounter Generic External Data Provider [facility] External [facility] Unsolicited Start: 10-23-2024 End: 10-23-2024 Clinisync Result Encounter Generic External Data Provider [facility] External Department Unsolicited Start: 10-23-2024 ambulatory MARIO HARPER Facility:[facility] Start: 10-23-2024 End: 10-23-2024 Subsequent hospital visit by physician General Iona Moreno Mc Work Phone: Radiology Comment on above: Pelvic floor dysfunction [M62.89] Start: 10-21-2024 End: 10-21-2024 Clinisync Result Encounter Shannon Darden CLICKING MACHINE OPERATOR Work Phone: [facility] External Department Unsolicited Start: 10-21-2024 End: 10-21-2024 Clinisync Result Encounter Shannon Darden CLICKING MACHINE OPERATOR Work Phone: [facility] External Department Unsolicited Start: 10-21-2024 ambulatory MARIO HARPER Facility:[facility] Start: 10-21-2024 End: 10-21-2024 Subsequent hospital visit by physician [facility] Work Phone: [facility] Radiology General Comment on above: Pelvic floor dysfunction [M62.89] Start: 10-15-2024 End: 10-15-2024 ambulatory MARIO HARPER Facility:[facility] Start: 10-15-2024 End: 10-15-2024 Admission to same day surgery center Mario Meredith BANEGAS[employer] Work Phone: Colorectal Surgery Start: 10-15-2024 End: 10-15-2024 Patient encounter procedure Mario Meredith [employer] Work Phone: Colorectal Surgery Start: 10-11-2024 End: 10-11-2024 ambulatory Lydia Rock PT, DPT Work Phone: [facility] Start: 10-11-2024 End: 10-11-2024 Patient encounter procedure Lydia Rock PT, DPT Work Phone: [facility] Comment on above: Muscle spasm (Primary Dx); Pelvic floor dysfunction; Chronic constipation Start: 10-11-2024 End: 10-11-2024 ambulatory LYDIA LINDA Facility:[facility] Start: 10-10-2024 End: 10-10-2024 Bamboo flowsheet Shannon Darden CLICKING MACHINE OPERATOR Work Phone: [facility] NEUROLOGY Start: 10-10-2024 End: 10-10-2024 Bamboo flowsheet Shannon Darden CLICKING MACHINE OPERATOR Work Phone: [facility] Start: 10-10-2024 End: 10-10-2024 Office outpatient new 45 minutes Shannon Darden CLICKING MACHINE OPERATOR Work Phone: [facility] 210 Comment on above: Numbness and tingling (Primary Dx); Atypical migraine Start: 10-10-2024 End: 10-10-2024 ambulatory SHANNON DARDEN Not Available Start: 10-09-2024 End: 10-09-2024 Patient encounter procedure Mario Harper APRN.[employer] Work Phone: Colorectal Surgery Comment on above: Pelvic floor dysfunction (Primary Dx); Chronic constipation; Gastroparesis Start: 10-09-2024 End: 10-09-2024 ambulatory CAROL WINN Facility:[facility] Start: 10-08-2024 End: 10-08-2024 Bamboo flowsheet Deena Lyn CLICKING MACHINE OPERATOR Work Phone: [facility] Start: 10-08-2024 End: 10-08-2024 Bamboo flowsheet Deena Lyn CLICKING MACHINE OPERATOR Work Phone: [facility] Start: 10-08-2024 End: 10-08-2024 Refill Deena Lyn CLICKING MACHINE OPERATOR Work Phone: [facility] Comment on above: Attention deficit hyperactivity disorder (ADHD), predominantly inattentive type ; Bipolar disorder, in partial remission, most recent episode manic (HCC); Agoraphobia with panic attacks Start: 10-08-2024 End: 10-08-2024 Office outpatient visit 25 minutes Deena Lyn CLICKING MACHINE OPERATOR Work Phone: [facility] Comment on [...] 09-25-2024 End: 09-25-2024 Bamboo flowsheet Deena Lyn CLICKING MACHINE OPERATOR Work Phone: [facility] Start: 09-25-2024 End: 09-25-2024 Bamboo flowsheet Deena Lyn CLICKING MACHINE OPERATOR Work Phone: [facility] Start: 09-25-2024 End: 09-25-2024 Office outpatient visit 25 minutes Deena Lyn CLICKING MACHINE OPERATOR Work Phone: [facility] Comment on above: Extrusion of suture, sequela (Primary Dx ) Start: 09-25-2024 End: 09-25-2024 ambulatory DEENA LYN Not Available Start: 09-17-2024 End: 09-17-2024 Bamboo flowsheet Sandy Hammond PA Work Phone: [facility] Start: 09-17-2024 End: 09-17-2024 Bamboo flowsheet Sandy Hammond PA Work Phone: [facility] Start: 09-17-2024 End: 09-17-2024 Office outpatient visit 15 minutes Sandy Hammond PA Work Phone: [facility] [...] / Non-visit Giovani Hagen MD Work Phone: [facility] Work Phone: Start: 08-16-2024 End: 08-19-2024 Evaluation and management of inpatient Giovani Hagen MD Work Phone: [facility] Work Phone: Start: 08-14-2024 End: 08-14-2024 [...] Start: 08-13-2024 End: 08-13-2024 ambulatory SOLO MORA Facility:[facility] Start: 08-13-2024 End: 08-13-2024 ambulatory SOLO MORA Facility:[facility] Start: 08-13-2024 ambulatory GIOVANI HAGEN Facility:[facility] Start: 08-01-2024 End: 08-01-2024 Office outpatient [...] Subsequent hospital visit by physician [facility] Work Phone: Radiology Comment on above: Chronic idiopathic constipation [K59.04] Start: 07-10-2024 End: 07-10-[address] [facility] Work Phone: Obstetrics/Gynecology Start: 07-10-2024 End: [...] SC POD Start: 06-18-2024 End: 06-19-2024 Michael JUSTICE Work Phone: [facility] [...] (C diff) Start: 05-22-2024 End: 05-22-2024 ambulatory ILIANA MERCADO Facility:[facility] Start: 05-22-2024 End: 05-22-2024 Clinisync Result [...] Transcribe Orders Rosario Mcconnell MD Work Phone: [facility] Comment on above: [...] Refill Giovani Hagen MD Work Phone: [facility] Comment on above: Anxiety; Bipolar disorder, in partial remission, most recent episode manic ([facility] Start: 05-06-2024 End: 05-06-2024 Telephone encounter Solo Mora MD Work Phone: Cardiology Comment on above: Patient Update (04/09/24 Echo Faxed) Start: 05-02-2024 End: 05-15-2024 Orders Only Iliana Mercado PA-C Work Phone: Gastroenterology Comment on above: Elevated LFTs (Primary Dx) Received images Start: 04-30-2024 End: 04-30-2024 Office outpatient visit 15 minutes Darwin Matty DO Work Phone: [facility] Comment on above: Pre-op evaluation; H/O female dyspareunia; Pelvic pain; Other endometriosis; H/O: hysterectomy Start: 04-30-2024 End: 04-30-2024 Preprocedural examination done Darwin Matty DO Work Phone: [facility] Start: 04-30-2024 End: 04-30-2024 Bamboo [...] Department Unsolicited Start: 04-26-2024 End: 04-26-2024 ambulatory GIOVANI HAGEN Facility:[facility] Start: 04-26-2024 End: 04-26-2024 Patient encounter [...] Office outpatient visit 25 minutes Josephine Gilman CLICKING MACHINE OPERATOR Work Phone: [facility] Comment on above: Acute bronchitis with asthma (CMS/HCC) ( Primary Dx) Start: 04-16-2024 End: 04-16-2024 ambulatory GIOVANI HAGEN Not Available Start: 04-09-2024 End: 04-09-2024 ambulatory SOLO MORA Facility:[facility] Start: 04-05-2024 End: 04-09-2024 ambulatory [facility] Provider Cardiology Comment on above: Surgical Clearance Start: 04-05-2024 End: 04-05-2024 Telephone encounter Solo Mora MD Work Phone: Cardiology Comment on above: Received Outside Medical Records (Cardio Clearance [facility]) Start: 04-03-2024 End: 04-03-2024 ambulatory DEENA LYN Not Available Start: 04-03-2024 End: 04-03-2024 Office outpatient visit 25 minutes Deena Lyn CLICKING MACHINE OPERATOR Work Phone: [facility] Comment on above: Hypokalemia (Primary Dx); Elevated blood sugar; Pre-operative clearance; Acute pain of left shoulder; Obesity (BMI 35.0-39.9 without comorbidity) Start: 04-03-2024 End: 04-03-2024 Preoperative state Deena Lyn CLICKING MACHINE OPERATOR Work Phone: [facility] Start: 04-02-2024 End: 04-02-2024 Telephone encounter Solo Mora MD Work Phone: Cardiology Comment on above: Received Outside Medical Records ([facility]) Start: 04-01-2024 End: 04-01-2024 ambulatory GIOVANI HAGEN [...] Start: 03-19-2024 End: 03-19-2024 ambulatory Anitra Ricci ICT HELP DESK TECHNICIAN [facility] Comment on above: Cervical radiculopathy (Primary Dx) Start: 03-11-2024 End: 03-11-2024 ambulatory Arun Hernadez ICT HELP DESK TECHNICIAN [facility] Comment on above: Cervical radiculopathy (Primary Dx) Start: 03-11-2024 End: 03-11-2024 Bamboo flowsheet Arun Brink ICT HELP DESK TECHNICIAN [facility] Start: 03-11-2024 End: 03-11-2024 Bamboo flowsheet Arun Brink ICT HELP DESK TECHNICIAN [facility] Start: 03-07-2024 End: 03-07-2024 Refill Giovani Hagen MD Work Phone: [facility] Comment on above: Obesity (BMI 35.0-39.9 without comorbidi ty) Start: 03-06-2024 End: 03-07-2024 ambulatory Arun Brink ICT HELP DESK TECHNICIAN [facility] Comment on above: Cervical radiculopathy (Primary Dx) Anxiety; Bipolar disorder, in partial remission, most recent episode manic (CMS/HCC) Start: 02-29-2024 End: 02-29-2024 ambulatory Anitra Kelbley ICT HELP DESK TECHNICIAN [facility] Comment on above: Cervical radiculopathy (Primary Dx) Start: 02-29-2024 End: 02-29-2024 Bamboo flowsheet Anitra Kelbley ICT HELP DESK TECHNICIAN [facility] Start: 02-29-2024 End: 02-29-2024 Bamboo flowsheet Anitra Kelbley ICT HELP DESK TECHNICIAN [facility] Start: 02-27-2024 End: 02-27-2024 ambulatory Anitra Kelbley ICT HELP DESK TECHNICIAN [facility] Comment on above: Cervical radiculopathy (Primary Dx) Start: 02-27-2024 End: 02-27-2024 Bamboo flowsheet Anitra Kelbley ICT HELP DESK TECHNICIAN [facility] Start: 02-27-2024 End: 02-27-2024 Bamboo flowsheet Anitra Kelbley ICT HELP DESK TECHNICIAN [facility] Start: 02-20-2024 End: 02-20-2024 Refill Audrey Perez LPN [facility] Comment on above: Attention deficit hyperactivity disorder (ADHD), predominantly inattentive type (CMS/HCC) Start: 02-14-2024 End: 02-15-2024 ambulatory Arun Brink ICT HELP DESK TECHNICIAN [facility] Comment on above: Cervical radiculopathy (Primary Dx) Start: 02-14-2024 End: 02-14-2024 Bamboo flowsheet Arun Brink ICT HELP DESK TECHNICIAN [facility] Start: 02-14-2024 End: 02-14-2024 Bamboo flowsheet Arun Brink ICT HELP DESK TECHNICIAN [facility] Start: 02-12-2024 End: 02-12-2024 ambulatory Zhen Burgess PT Work Phone: [facility] Comment on above: Cervical radiculopathy (Primary Dx) Start: 02-12-2024 End: 02-12-2024 Bamboo flowsheet Zhen Burgess PT Work Phone: [facility] Start: 02-12-2024 End: 02-12-2024 Bamboo flowsheet Zhen Valentinton PT Work Phone: [facility] Start: 02-07-2024 End: 02-07-2024 ambulatory Arun Brink ICT HELP DESK TECHNICIAN [facility] Comment on above: Cervical radiculopathy (Primary Dx) Start: 02-07-2024 End: 02-07-2024 Bamboo flowsheet Arun Brink ICT HELP DESK TECHNICIAN [facility] Start: 02-07-2024 End: 02-07-2024 Bamboo flowsheet Arun Brink ICT HELP DESK TECHNICIAN [facility] Start: 02-06-2024 End: 02-06-2024 Office outpatient visit 25 minutes Giovani Hagen MD Work Phone: [facility] Comment on above: Localized edema (Primary Dx); Obesity (BMI 35.0-39.9 without comorbidity); Injury of right ankle, subsequent encounter; Anxiety; Bipolar disorder, in partial remission, most recent episode manic ([facility] Start: 02-06-2024 End: 02-06-2024 ambulatory GIOVANI HAGEN [...] PT Initial Eval (Tried to contact to [facility] PT Eval for cervical radiculopathy; but [...] encounter procedure BHAVESH DEJESUS [facility] Start: 12-28-2023 End: 12-29-2023 ambulatory [facility] Provider Cardiology Comment on above: Zio Start: 12-26-2023 End: 12-26-2023 Office outpatient visit 25 minutes Giovani Hagen MD Work Phone: [facility] Comment on above: Cervical radiculopathy (Primary Dx); Acute nonintractable headache, unspecified headache type; Nausea and vomiting, unspecified vomiting type Start: 12-19-2023 End: 12-21-2023 Orders Only Solo Mora MD Work Phone: Cardiology Comment on above: Syncope and collapse (Primary Dx) Event (ZIO PATCH) Syncope, unspecified syncope type (Primary Dx) Start: 12-18-2023 End: 02-01-2024 Telephone encounter Benito Kendrick [facility] Comment on above: Lab results Start: 12-13-2023 End: 12-13-2023 Clinisync Result Encounter Generic External Data Provider [facility] External Department Unsolicited Start: 12-13-2023 End: 12-13-2023 Clinisync Result Encounter Generic External Data Provider [facility] External Department Unsolicited Start: 12-04-2023 End: 12-12-2024 Patient encounter status Zhenben Burgess PT Work Phone: [facility] Start: 11-02-2023 Orders Only Solo Mora MD Work Phone: Cardiology Comment on above: Gastroparesis (Primary Dx) Patient Update (Refe rral & Records are in Care Everywhere) Start: 03-22-2023 End: 03-24-2023 Evaluation and management of inpatient [facility] Start: 03-20-2023 ambulatory Carol Winn MD Work [...] 10-26-2022 ambulatory MD Giovani Hagen Work Phone: [facility] Work Phone: Start: 10-26-2022 End: 10-26-2022 Patient encounter procedure MD Giovani Hagen Work Phone: [facility] [place] Work Phone: Start: 10-18-2022 ambulatory Maria Dolores Corey DO Work Phone: Gastroenterology Start: 10-18-2022 Telephone encounter Maria Dolores Corey DO Work Phone: Gastroenterology Comment on above: Medication Preauthorization ([employer]) Results Start: 10-17-2022 End: 10-17-2022 Patient encounter procedure [facility] Work Phone: Gastroenterology Comment on above: Gastroparesis (Primary Dx) Start: 09-12-2022 End: 09-12-2022 Subsequent hospital visit by physician [facility] Work Phone: [facility] Radiology Molecular Comment on above: Nausea [R11.0] Start: 08-31-2022 End: 08-31-2022 Subsequent hospital visit by physician Carol Winn MD Work Phone: Ambulatory Surgery Comment on above: PUD (peptic ulcer disease) [K27.9] Start: 08-24-2022 Telephone encounter Nurse [facility] Work Phone: Gastroenterology Comment on above: Appointment Start: 07-08-2022 End: 07-08-[address] MADHURI MISHRA . Facility:[facility] Start: 07-06-2022 End: 07-07-[address] MADHURI MISHRA . Facility:[facility] Start: 07-05-2022 End: 07-05-2022 Patient encounter procedure Madhuri MISHRA [facility] Start: 07-04-2022 Orders Only Carol Winn MD Work Phone: Gastroenterology Start: 06-30-2022 End: 06-30-2022 Subsequent hospital visit by physician Carol Winn MD Work Phone: Ambulatory Surgery Comment on above: Bilious vomiting with nausea [R11.14] Start: 06-29-2022 End: 06-30-[address] MADHURI MISHRA . Facility: Start: 06-29-2022 End: 06-29-2022 Lab Drop off Madhuri MISHRA [facility] Start: 06-23-2022 ambulatory Carol Winn MD Work Phone: Gastroenterology Comment on above: EGD instructions Start: 06-23-2022 E-mail encounter from caregiver Carol Winn MD Work Phone: [facility] Start: 06-16-2022 ambulatory [facility] Provider Gastroenterology Comment on above: Question regarding US ABD RT UPPER QUADR ANT Start: 06-15-2022 End: 06-15-2022 Subsequent hospital visit by physician Ultra [facility] Work Phone: [facility] Radiology Ultrasound Comment on above: Liver lesion [K76.9] Start: 06-14-2022 Orders Only Carol Winn MD Work Phone: Ambulatory Surgery Comment on above: Liver lesion (Primary Dx) Results Start: 06-10-2022 ambulatory Diamond Pycraft RT(R) Radiology Ct Scan Comment on above: Radiology CT Start: 06-10-2022 Patient encounter procedure Diamond Pycraft RT(R) [facility] Start: 06-10-2022 End: 06-10-2022 Subsequent hospital visit by physician Ct Prep [facility] Cc Radiology Ct Scan Comment on above: Bilious vomiting with nausea [R11.14] Start: 05-27-2022 End: 05-27-2022 Subsequent hospital visit by physician Xr [facility] Work Phone: [facility] Radiology General Comment on above: SOB (shortness of breath) [R06.02] Start: 05-27-2022 End: 05-27-2022 Patient encounter procedure Carol Winn MD Work Phone: Gastroenterology Comment on above: Fatty liver (Primary Dx); Bilious vomiting with nausea; Right sided abdominal pain; Nausea; History of diverticulitis; SOB (shortness of breath) Start: 05-13-2022 End: 05-13-2022 ambulatory MD Giovani Hagen Work Phone: [facility] Work Phone: Start: 05-13-2022 End: 05-13-2022 Patient encounter procedure MD iGovani Hagen Work Phone: [facility]Dig[facility] Work Phone: Start: 05-03-2022 End: 05-04-2022 ambulatory [facility] Other Start: 05-03-2022 Office consultation new/estab patient 60 min Imad Asaad [facility] Start: 04-20-2022 End: 04-20-[address] AURORA IRBY . Facility:[facility] Start: 04-06-2022 End: 04-07-[address] GIOVANI HAGEN Facility:[facility] Start: 12-21-2021 End: 12-22-[address] AURORA IRBY . Facility:[facility] Start: 12-10-2021 End: 12-10-2021 Subsequent hospital visit by physician [facility] Comment on above: Elevated LFTs [...] End: 11-09-2018 Patient encounter procedure OZIEL MONTEIRO [facility] Procedures Date Procedure Procedure Detail Performing Clinician Start: 12-13-2024 Radex foot complete minimum 3 views Milton D Dolce DPM [facility]AS Work Phone: Start: 12-12-2024 MLR HEMOGLOBIN A1C Sandy JUSTICE Work Phone: Start: 10-23-2024 Radiologic exam abdomen 1 view Mario Harper APRN.[facility] [facility] Work Phone: Start: 10-23-2024 XR ABDOMEN 1V SUPINE Generic External Data Provider Start: 10-21-2024 MRI HEAD/BRAIN WO/W CONTR Shannon Darden CLICKING MACHINE OPERATOR Work Phone: Start: 10-15-2024 [facility] [place] [facility] Mario Harper APRN.[facility] [employer] [facility] Work Phone: Start: 07-10-2024 Us pelvic nonobstetric real-time image complete Javy Boudreaux MD Work Phone: Start: 07-03-2024 Radex ankle complete minimum 3 views Milton D Dolce DPM [facility] Work Phone: Start: 06-25-2024 RECURRENT [...] DTaP,Tdap,Td Vaccine (7 - Td or Tdap) [facility] Start: 03-18-2025 End: 03-18-2025 Patient encounter procedure 03/18/2025 9:00 AM EST [facility] [address] [place] [address] [place] [address] Giovani Hagen MD [address] [place] [address] [place] [address] [facility] [facility] Start: 02-28-2025 End: 02-28-2025 Patient encounter procedure 02/28/2025 9:00 AM EST Office Visit [facility] [address] [facility] [place] [address] Jatin Cabrera MD [address] [facility] [address] [address] [facility] [place] [facility] Start: 01-15-2025 End: 01-15-2025 Clinical Support 01/15/2025 4:00 PM EDT Clinical Support [facility] [address] [place] [phone] Milton Fraire, DPM [facility] [address] [facility] [place] [address] [facility] Start: 12-30-2024 End: 12-30-2024 Clinical Support [facility] Comment on above: Arrived Start: 12-26-2024 End: 12-26-2025 MR Lumbar spine WO contrast MR lumbar spine wo contrast Imaging Routine Lumbar radiculopathy Expected: 12/26/2024, Expires: 12/26/2025 [facility] Work Phone: Comment on above: Expected: 12/26/2024, Expires: Start: 12-26-2024 End: 12-26-2024 Patient encounter procedure [facility] Start: 12-23-2024 Influenza vaccination [facility] Comment on above: Postponed from 12/24/2023 (Other Medical Reasons) Start: 12-16-2024 End: 12-16-2024 Patient encounter procedure 12/16/2024 9:45 AM EDT Office Visit [facility] [place] [facility] [address] [facility] [address] [place] [phone] Giovani Hagen MD [address] [facility] [address] [place], [place] [phone] [facility] Start: 12-13-2024 End: 12-13-2024 Patient encounter procedure 12/13/2024 9:40 AM EDT Office Visit [facility] [address] [facility] [place] [address] Milton Fraire, DPM FACFAS [address] [facility] [place] [address] [facility] Start: 12-12-2024 End: 12-12-2024 Patient encounter procedure 12/12/2024 10:30 AM EDT Office Visit [facility] [place] [facility] [address] [facility] [address] [place] [phone] Sandy Hammond, PA [address] [facility] [address] [place] [address] Elevated liver enzymes (Primary Dx); Nephrocalcinosis; Bilateral nephrolithiasis; Right ovarian cyst; Hypokalemia [facility] [place] [facility] Comment on above: Elevated liver enzymes (Primary Dx); Nephrocalcinosis; Bilateral nephrolithiasis; Right ovarian cyst; Hypokalemia Start: 11-18-2024 End: 11-18-2024 Patient encounter procedure 11/18/2024 12:00 PM EDT Procedure Visit [facility] [address] [place] [phone] [facility] Start: 11-04-2024 End: 11-04-2024 Patient encounter procedure 11/04/2024 2:00 PM EDT Office Visit Gynecology [address] [place] [address] Emma Ying APRN.[facility] [employer] [facility] [address] [place] [phone] Other specified dyspareunia Gynecology Comment on above: Other specified dyspareunia Start: 10-29-2024 End: 10-29-2024 Patient encounter procedure 10/29/2024 10:00 AM EDT Procedure Visit [facility] NE[facility]O [address] [place] [phone] [facility] NE[facility]O [address] Start: 10-15-2024 End: 10-15-2024 Admission to same day surgery center 10/15/2024 10:30 AM EDT Procedure Colorectal Surgery [address] [facility] [address] [place], [place] [phone] Mario Harper APRN.[facility] [employer] [facility] [address] [place] [address] manometry Colorectal Surgery Comment on above: manometry Start: 10-10-2024 End: 10-10-2025 EMG 1 [facility] EMG 1 [facility] Neurology Routine Numbness and tingling Expected: 10/10/2024 (Approximate), Expires: 10/10/2025 [facility] Comment on above: Expected: 10/10/2024 (Approximate), Expi res: 10/10/2025 Start: 10-10-2024 End: 10-10-2025 MR Brain WO and W contrast IV MR brain w and wo contrast routine Imaging Routine Numbness and tingling Atypical migraine Expected: 10/10/2024 (Approximate), Expires: 10/10/2025 [facility] Work Phone: Comment on above: Expected: 10/10/2024 (Approximate), Expi res: 10/10/2025 Start: 10-10-2024 End: 10-10-2024 Patient encounter procedure [facility] NEURO [address] Comment on above: Arrived Start: 09-25-2024 End: 09-25-2024 Patient encounter procedure 09/25/2024 10:30 AM EDT Office Visit [facility] [address] [facility] [address] [place] [phone] Deena Lyn CLICKING MACHINE OPERATOR [address] [facility] [address] [place] [address] Arrived [facility] Comment on above: Arrived Start: 09-17-2024 End: 09-17-2024 Patient encounter procedure [facility] Comment on above: Arrived Start: 09-04-2024 End: 09-04-2024 Patient encounter procedure 09/04/2024 4:40 PM EDT Office Visit [facility] [address] [place] [address] Milton Fraire, DPM [facility]AS [address] [place] [address] [facility] Start: 09-02-2024 End: 09-02-2024 Patient encounter procedure 09/02/2024 3:00 PM EDT Office Visit [facility] [address] [facility] [address] [place] [address] Giovani Hagen MD [address] [facility] [address] [place] [address] [facility] Start: 08-21-2024 End: 08-21-2024 Patient encounter procedure 08/21/2024 4:00 PM EDT Office Visit [facility] [address] [place] [address] Milton Fraire, DPM FACFAS [address] [facility] [place] [address] [facility] Start: 08-19-2024 [facility] Start: 08-16-2024 Hospital admission [facility] Start: 08-16-2024 [facility] Start: 08-14-2024 End: 08-14-2024 Patient encounter procedure 08/14/2024 4:10 PM EDT Office Visit [facility] [address] [place] [address] Milton Fraire, DPM FACFAS [address] [facility] [place] [address] [facility] Start: 08-13-2024 End: 08-13-2024 Patient encounter procedure 08/13/2024 2:30 PM EDT Office Visit Cardiology [address] [place] [address] Solo Mora MD [address] [place], [place] [phone] Dx: Syncope, unspecified syncope type [R55] Cardiology Comment on above: Dx: Syncope, unspecified syncope type [R 55] Start: 08-13-2024 End: 08-13-2024 Patient encounter procedure 08/13/2024 12:30 PM EDT Office Visit Cardiology [address] [place] [address] Dx: Syncope, unspecified syncope type [R55] Cardiology Comment on above: Dx: Syncope, unspecified syncope type [R 55] Start: 08-13-2024 End: 08-13-2024 Patient encounter procedure 08/13/2024 10:30 AM EDT Office Visit Cardiology [address] [place] [address] Dx: Syncope, unspecified syncope type [R55] Cardiology Comment on above: Dx: Syncope, unspecified syncope type [R 55] Start: 08-01-2024 End: 08-01-2024 Patient encounter procedure 08/01/2024 2:30 PM EDT Office Visit [facility] [address] [facility] [address] [place] [address] Giovani Hagen MD [address] [facility] [address] [place] [address] [facility] Start: 07-26-2024 End: 07-26-2024 ambulatory 07/26/2024 8:40 AM EDT [facility] Gastroenterology [address] [place] [address] [place] [address] [place] [phone] Elevated LFT, per Pt Gastroenterology Comment on above: Elevated LFT, per Pt Start: 07-24-2024 End: 07-24-2024 Patient encounter procedure 07/24/2024 3:50 PM EDT Office Visit [facility] [address] [facility] [place] [address] Milton Fraire, DPM FACFAS [address] [place] [address] [facility] Start: 07-04-2024 End: 07-04-2024 Patient encounter procedure 07/04/2024 3:30 PM EDT Office Visit [facility] [address] [facility] [address] [place] [address] Giovani Hagen MD [address] [facility] [address] [place] [address] [facility] Start: 07-03-2024 End: 07-03-2024 Patient encounter procedure 07/03/2024 2:20 PM EDT Office Visit [facility] [address] [facility] [place] [address] Milton Fraire, DPM FACFAS [address] [place] [address] [facility] Start: 06-26-2024 End: 06-26-2024 Patient encounter procedure 06/26/2024 2:50 PM EST Office Visit [facility] [address] [facility] [place] [address] Milton Fraire, DPM FACFAS [address] [place] [address] [facility] Start: 06-25-2024 End: 06-25-2024 Patient encounter procedure [facility] Comment on above: Arrived Start: 06-24-2024 End: 06-24-2024 Patient encounter procedure 06/24/2024 10:40 AM EST Office Visit [facility] [address] [facility] [place] [address] Milton Fraire, DPM FACFAS [address] [place] [address] [facility] Start: 06-19-2024 End: 06-19-2024 Patient encounter procedure [facility] Comment on above: Arrived Start: 06-17-2024 End: 06-17-2024 Patient encounter procedure 06/17/2024 10:30 AM EST Office Visit Orthopaedics [address] [place] [address] Naren Verdugo PA-C [address] [place] [address] 1st post op Rt ankle arthroscopy/internal brace 06/04/24 Orthopaedics Comment on above: 1st post op Rt ankle arthroscopy/interna l brace 06/04/24 Start: 06-12-2024 End: 06-12-2024 ambulatory 06/12/2024 1:45 PM EST Results Only Cardiology [address] [place] [address] Dx: Syncope, unspecified syncope type [R55] Cardiology Comment on above: Dx: Syncope, unspecified syncope type [R 55] Start: 06-12-2024 End: 06-12-2024 Patient encounter procedure Cardiology Comment on above: Dx: Syncope, unspecified syncope type [R 55] Start: 06-10-2024 End: 06-10-2024 Patient encounter procedure 06/10/2024 9:40 AM EST Appointment [facility] [address] [facility] [address] [place] [phone] Rosario Mcconnell I, MD [address] [facility] [address] [place] [phone] [facility] - [facility] Comment on above: CRIOH RESEARCH - CORCEPT Start: 06-04-2024 End: 06-04-2024 Patient encounter procedure 06/04/2024 9:40 AM EST Office Visit [facility] [address] [place] [phone] Milton Fraire, DPM FACFAS [address] [place] [address] [facility] Start: 06-04-2024 End: 06-04-2024 Admission to same day surgery center 06/04/2024 7:30 AM EST - 06/04/2024 10:10 AM EST Surgery [facility] [address] [place] [address] Lydia Kelley DO [address] [place] [address] REPAIR ANKLE LIGAMENT SECONDARY DISRUPTED, COLLATERAL [facility] Comment on above: REPAIR ANKLE LIGAMENT SECONDARY DISRUPTE D, COLLATERAL Start: 06-04-2024 End: 06-04-2024 Repair secondary disrupted ligament ankle coltrl REPAIR ANKLE LIGAMENT SECONDARY DISRUPTED, COLLATERAL Right ankle instability 06/04/2024 7:30 AM EST ME OR Start: 06-04-2024 Subsequent hospital visit by physician 06/04/2024 7:30 AM EST Hospital Encounter [facility] [address] [place] [address] Lydia Kelley DO [address] [place] [address] 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] [facility] Comment on above: 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] Start: 05-31-2024 End: 05-31-2024 ambulatory 05/31/2024 1:15 PM EST [facility] [address] [place] [address] Lydia Kelley DO [address] [place] [address] 4 week f/u, right ankle Orthopaedics Comment on above: 4 week f/u, right ankle Start: 05-31-2024 End: 05-31-2024 Patient encounter procedure 05/31/2024 9:45 AM EST Office Visit Orthopaedics [address] [address] Lydia Kelley DO [address] [place] [address] 4 week f/u, right ankle Orthopaedics Comment on above: 4 week f/u, right ankle Start: 05-29-2024 End: 05-29-2024 Patient encounter procedure [facility] Comment on above: Arrived Start: 05-22-2024 End: 05-22-2024 Patient encounter procedure 05/22/2024 2:30 PM EST Appointment Ambulatory Surgery [address] [place] [address] [place] [address] [place] [address] BRBPR (bright red blood per rectum) [K62.5] Ambulatory Surgery Comment on above: BRBPR (bright red blood per rectum) [K62 .5] Start: 05-15-2024 End: 05-15-2024 Patient encounter procedure [facility] Comment on above: Arrived Start: 05-08-2024 End: 05-08-2024 Patient encounter procedure 05/08/2024 3:10 PM EST Office Visit [facility] [address] [place] [phone] Prateek Pedraza DPM [address] [address] [facility] Start: 05-05-2024 End: 05-05-2024 Anesthesia consultation 05/05/2024 11:59 PM EST Anesthesia Event Ambulatory Surgery [address] [place] [address] Sharla Bonds APRN.CERTIFIED TUMOR REGISTRAR [address] [place] [address] Ambulatory Surgery Start: 05-02-2024 End: 05-02-2024 ambulatory 05/02/2024 12:00 PM EST Procedure Gastroenterology [address] [place] [address] fibroscan Gastroenterology Comment on above: fibroscan Start: 05-01-2024 End: 05-01-2024 Patient encounter procedure 05/01/2024 4:30 PM EST Office Visit [facility] [address] [place] [phone] Prateek Pedraza DPM [address] [facility] [address] [place] [address] [facility] Start: 04-30-2024 End: 04-30-2024 Patient encounter procedure [facility] Comment on above: Arrived Start: 04-26-2024 End: 04-26-2024 Patient encounter procedure 04/26/2024 3:05 PM EST Office Visit Gastroenterology [address] [place], [place] [phone] Iliana Mercado PA-C [address] [place] [address] Elevated LFT, per Pt Gastroenterology Comment on above: Elevated LFT, per Pt Start: 04-26-2024 End: 07-26-2024 Alpha 1 antitrypsin [Mass/volume] in Serum or Plasma [facility] Comment on above: Expected: 04/26/2024, Expires: Start: 04-26-2024 End: 07-26-2024 [id number] [Mass/volume] in Serum or Plasma [facility] Work Phone: Comment on above: Expected: 04/26/2024, Expires: Start: 04-26-2024 End: 07-26-2024 DENY BY IFA WITH REFLEX [facility] Comment on above: Expected: 04/26/2024, Expires: Start: 04-26-2024 End: 07-26-2024 Ceruloplasmin [Mass/volume] in Serum or Plasma [facility] Comment on above: Expected: 04/26/2024, Expires: Start: 04-26-2024 End: 07-26-2024 Hepatitis A virus IgM Ab [Presence] in Serum [facility] Comment on above: Expected: 04/26/2024, Expires: Start: 04-26-2024 End: 07-26-2024 Hepatitis B virus core IgM Ab [Presence] in Serum [facility] Comment on above: Expected: 04/26/2024, Expires: Start: 04-26-2024 End: 07-26-2024 Hepatitis B virus surface Ag [Presence] in Serum [facility] Comment on above: Expected: 04/26/2024, Expires: Start: 04-26-2024 End: 07-26-2024 Hepatitis C virus Ab [Presence] in Serum [facility] Comment on above: Expected: 04/26/2024, Expires: Start: 04-26-2024 End: 07-26-2024 Mitochondria Ab [Presence] in Serum by Immunofluorescence [facility] Comment on above: Expected: 04/26/2024, Expires: Start: 04-26-2024 End: 07-26-2024 Smooth muscle Ab [Presence] in Serum [facility] Comment on above: Expected: 04/26/2024, Expires: Start: 04-03-2024 End: 04-03-2025 Hemoglobin A1c/Hemoglobin.total in Blood Hemoglobin A1c Lab Routine Elevated blood sugar Expected: 04/03/2024 (Approximate), Expires: 04/03/2025 [facility] Comment on above: Expected: 04/03/2024 (Approximate), Expi res: 04/03/2025 Start: 04-03-2024 End: 04-03-2025 MR Shoulder - left WO contrast MR shoulder left wo IV contrast Imaging Routine Acute pain of left shoulder Expected: 04/03/2024, Expires: 04/03/2025 [facility] Comment on above: Expected: 04/03/2024, Expires: Start: 04-03-2024 End: 04-03-2025 Potassium [Moles/volume] in Serum or Plasma Potassium Lab Routine Hypokalemia Expected: 04/03/2024 (Approximate), Expires: 04/03/2025 [facility] Work Phone: Comment on above: Expected: 04/03/2024 (Approximate), Expi res: 04/03/2025 Start: 04-01-2024 End: 04-01-2024 Patient encounter procedure 04/01/2024 8:30 AM EST Office Visit [facility] [address] [place] [address] [place] [phone] Giovani Hagen MD [address] [place] [address] [place] [address] [facility] Start: 03-27-2024 End: 03-27-2024 ambulatory 03/27/2024 4:00 PM EST Treatment [facility] [address] [place] [address] Zhen Burgess, PT [address] [place] [address] [facility] Start: 03-25-2024 End: 03-25-2024 ambulatory 03/25/2024 4:00 PM EST Treatment [facility] [address] [place] [address] Arun Hernadez, ICT HELP DESK TECHNICIAN [facility] Start: 03-20-2024 End: 03-20-2024 Patient encounter procedure 03/20/2024 4:00 PM EST Office Visit [facility] [address] [place] [phone] Darwin Starr, DO [address] [place] [address] [facility] Start: 03-19-2024 End: 03-19-2024 ambulatory 03/19/2024 4:00 PM EST Treatment [facility] [address] [place] [address] Anitra Ricci, ICT HELP DESK TECHNICIAN [facility] Start: 03-13-2024 End: 03-13-2024 ambulatory 03/13/2024 4:30 PM EST Treatment [facility] [address] [place] [address] Zhen Burgess, PT [address] [facility] [address] [place] [address] [facility] Start: 03-11-2024 End: 03-11-2024 ambulatory [facility] Comment on above: Arrived Start: 03-06-2024 End: 03-06-2024 ambulatory [facility] Start: 03-04-2024 End: 03-04-2024 ambulatory 03/04/2024 9:00 AM EST Treatment [facility] [address] [facility] [address] [place] [phone] Arun Hernadez PTA [facility] Start: 02-29-2024 End: 02-29-2024 ambulatory [facility] Comment on above: Arrived Start: 02-27-2024 End: 02-27-2024 ambulatory [facility] Comment on above: Arrived Start: 02-21-2024 End: 02-21-2024 ambulatory 02/21/2024 4:30 PM EDT Treatment [facility] [address] [facility] [address] [place] [phone] Anitra Ricci PTA [facility] Start: 02-14-2024 End: 02-14-2024 ambulatory [facility] Start: 02-13-2024 End: 02-13-2024 Patient encounter procedure Cardiology Comment on above: Dx: Syncope, unspecified syncope type [R 55] Start: 02-13-2024 End: 02-13-2024 ambulatory 02/13/2024 2:00 PM EDT Results Only Cardiology [address] [place] [address] Dx: Syncope, unspecified syncope type [R55] Cardiology [...] 01/22/2024 1:50 PM EDT Office Visit [facility] [address] [facility] [address] [place] [phone] Darwin Starr, [address] [facility] [place] [address] [facility] Start: 01-09-2024 End: 01-09-2024 Patient encounter procedure 01/09/2024 4:00 PM EDT Office Visit [facility] [address] [facility] [address] [place] [phone] Giovani Hagen MD [address] [facility] [address] [place] [address] [facility] Start: 01-09-2024 End: 01-08-2025 [...] Vaccine ( season) Covid-19 Vaccine ( season) [facility] Start: 12-24-2023 Covid-19 Vaccine ( season) Covid-19 Vaccine ( season) [facility] Start: 12-24-2023 Influenza vaccination Influenza Vaccine (#1) [facility] Start: 12-19-2023 End: 12-19-2023 ambulatory 12/19/2023 2:15 PM EDT Results Only Cardiology [address] [place] [address] Exertional Syncope. Referring: Dr. Shilo Dillon Cardiology Comment on above: Exertional Syncope. Referring: Dr. Shilo Dillon Start: 12-19-2023 End: 12-19-2023 Patient encounter procedure Cardiology Comment on above: Exertional Syncope. Referring: Dr. Shilo Dillon Start: 04-24-2023 Behavioral Health Screening Behavioral Health Screening [facility] Start: 12-23-2022 Covid-19 Vaccine () Covid-19 Vaccine () [facility] Start: 12-23-2022 Influenza vaccination [facility] Start: 05-13-2022 [facility] Start: 04-24-2022 DEPRESSION ASSESSMENT DEPRESSION ASSESSMENT [facility] Start: 12-28-2021 COVID-19 VACCINE (4 - Booster for Pfizer series) COVID-19 VACCINE (4 - Booster for Pfizer series) [facility] Start: 12-28-2021 COVID-19 VACCINE (4 - Pfizer series) COVID-19 VACCINE (4 - Pfizer series) [facility] Start: 12-23-2021 Influenza vaccination INFLUENZA (#1) [facility] Start: 02-06-2020 Urine microalbumin profile DTaP,Tdap,Td Vaccine (6 - Td or Tdap) [facility] Start: 2018 HPV TESTING HPV TESTING [facility] Start: 2009 PAP TESTING PAP TESTING [facility] Start: 2009 Screening for malignant neoplasm of cervix Cervical Cancer Screening [facility] Start: 09-29-2007 Urine microalbumin profile DTAP,TDAP,TD (1 - Tdap) [facility] Start: 11-30-2006 HPV Vaccine (2 - 3-dose series) HPV Vaccine (2 - 3-dose series) [facility] Start: 2006 Anxiety Screening Anxiety Screening [facility] Start: 2006 Depression Screening Depression Screening [facility] Start: 2006 HEPATITIS C SCREENING HEPATITIS C SCREENING [facility] Start: 2006 Hepatitis C screening Hepatitis C Screening [facility] Start: 2006 HIV SCREENING HIV SCREENING [facility] Start: 2006 HIV screening HIV Screening [facility] Start: 1988 HEPATITIS B (1 of 3 - 3-dose series) HEPATITIS B (1 of 3 - 3-dose series) [facility] 25-hydroxyvitamin D3 [Mass/volume] in Serum or Plasma Vitamin D 25 hydroxy Total Lab Routine Weight gain Ordered: 12/12/2024 [facility] Comment on above: Ordered: 12/12/2024 Actin smooth muscle IgG Ab [Units/volume] in Serum [facility] End: 10-09-2025 ADULT [place] [employer] ADULT [place] [facility]ORECT[employer] [facility] Endoscopy Routine Pelvic floor dysfunction Chronic constipation 1 Occurrences starting 10/09/2024 until 10/09/2025 [facility] Work Phone: Comment on above: 1 Occurrences starting 10/09/2024 until 10/09/2025 ADULT [place] ANORECTAL [employer]OM[employer] ADULT [place] ANORECTAL [facility]OM[facility] Endoscopy Routine Pelvic floor dysfunction Chronic constipation 10/15/2024 [facility] Work Phone: Alpha 1 antitrypsin [Mass/volume] in Serum or Plasma [facility] Alpha 1 antitrypsin phenotyping [Identifier] in Serum or Plasma by Immunofixation [facility] CBC W Auto Different ial panel - Blood CBC and differential Lab Routine Weight gain History of alcohol dependence (HCC) Other fatigue Ordered: 12/12/2024 [facility] Comment on above: Ordered: 12/12/2024 Ceruloplasmin [Mass/volume] in Serum or Plasma [facility] CHLAMYDIA TRACHOMATI S (GENITO/STI) CHLAMYDIA TRACHOMATIS (GENITO/STI) Lab Routine Pain in female genitalia on intercourse Cystitis Ordered: 06/25/2024 [facility] Comment on above: Ordered: 06/25/2024 End: 05-23-2024 CLOSTRIDIUM DIFFICILE TOXIN BY EIA [facility] Comment on above: ONCE for 1 Occurrences starting 05/23/19 until 05/23/2024 Cobalamin (Vitamin B 12) [Mass/volume] in Serum or Plasma Vitamin B12 Lab Routine Elevated liver enzymes Weight gain History of alcohol dependence (HCC) Other fatigue Ordered: 12/12/2024 [facility] Comment on above: Ordered: 12/12/2024 Comprehensive metabo lic 2000 panel - Serum or Plasma Comprehensive metabolic panel Lab Routine Elevated liver enzymes Hypokalemia Weight gain History of alcohol dependence (HCC) Impaired fasting glucose Ordered: 12/12/2024 [facility] [employer] Comment on above: Ordered: 12/12/2024 End: 06-26-2023 Ct abdomen & pelvis w/o contrast material CT ABD/PEL WO IVCON Radiology Routine Bilious vomiting with nausea Right sided abdominal pain Nausea 1 Occurrences starting 05/27/2022 until 06/26/2023 [facility] Work Phone: Comment on above: 1 Occurrences starting 05/27/2022 until 06/26/2023 End: 05-14-2025 CT Guidance for core needle biopsy of Liver LIVER BIOPSY NEEDLE Endoscopy Routine ENGLISH (nonalcoholic steatohepatitis) 1 Occurrences starting 05/14/2024 until 05/14/2025 [facility] Work Phone: Comment on above: 1 Occurrences starting 05/14/2024 until 05/14/2025 Cytology Cervical or vaginal smear or scraping study Pap Smear Pathology and Cytology Routine Well woman exam with routine gynecological exam Ordered: 03/20/2024 [facility] [employer] Work Phone: Comment on above: Ordered: 03/20/2024 End: 11-01-2024 ECG COMPLETE ECG COMPLETE ECG Routine Gastroparesis 1 Occurrences starting 11/02/2023 until 11/01/2024 [facility] Work Phone: Comment on above: 1 Occurrences starting 11/02/2023 until 11/01/2024 End: 12-18-2024 ECG COMPLETE ECG COMPLETE ECG Routine Syncope and collapse 1 Occurrences starting 12/19/2023 until 12/18/2024 [facility] Work Phone: Comment on above: 1 Occurrences starting 12/19/2023 until 12/18/2024 End: 05-27-2023 EGD DIAGNOSTIC EGD DIAGNOSTIC Endoscopy Routine Bilious vomiting with nausea Right sided abdominal pain 1 Occurrences starting 05/27/2022 until 05/27/2023 [facility] Work Phone: Comment on above: 1 Occurrences starting 05/27/2022 until 05/27/2023 Electrogastrography dx transcutaneous EGG (ELECTROGASTROGRAPHY) Procedures Routine Gastroparesis Ordered: 09/14/2022 [facility] Work Phone: Comment on above: Ordered: 09/14/2022 ENTERIC BACTERIAL PA BELEM BY PCR [facility] Work Phone: Comment on above: Release Upon Ordering for 1 Occurrences starting 05/22/2024 End: 04-26-2025 Flexible sigmoidoscopy study COLONOSCOPY DIAGNOSTIC Endoscopy Routine BRBPR (bright red blood per rectum) 1 Occurrences starting 04/26/2024 until 04/26/2025 [facility] Comment on above: 1 Occurrences starting 04/26/2024 until 04/26/2025 Folate [Mass/volume] in Serum or Plasma Folate Lab Routine Elevated liver enzymes Weight gain History of alcohol dependence (HCC) Other fatigue Ordered: 12/12/2024 [facility] Comment on above: Ordered: 12/12/2024 Hemoglobin A1c/Hemoglobin.total in Blood Hemoglobin A1c Lab Routine Weight gain Impaired fasting glucose Ordered: 12/12/2024 [facility] Comment on above: Ordered: 12/12/2024 Hepatitis A virus Ab [Presence] in Serum by Immunoassay [facility] HFE gene mutations f ound [Identifier] in Blood or Tissue by Molecular genetics method Nominal [facility] Homogenous nuclear A b pattern [Titer] in Serum [facility] Human papilloma viru s DNA [Presence] in Unspecified specimen by Probe with amplification HPV DNA probe, amplified Microbiology Routine Well woman exam with routine gynecological exam Ordered: 03/20/2024 [facility] Comment on above: Ordered: 03/20/2024 IgG [Mass/volume] in Serum or Plasma [facility] Iron + transferrin + TIBC Iron + transferrin + TIBC Lab Routine Elevated liver enzymes Weight gain Other fatigue Ordered: 12/12/2024 [facility] Comment on above: Ordered: 12/12/2024 Lipoprotein a [Moles/volume] in Serum or Plasma [facility] Liver ultrasound attenuation by transient elastography DDI VIBRATION CONTROLLED TRANSIENT ELASTOGRAPHY (VCTE) Endoscopy Routine Elevated LFTs Ordered: 04/26/2024 [facility] Comment on above: Ordered: 04/26/2024 Mitochondria M2 IgG Ab [Units/volume] in Serum [facility] Neisseria gonorrhoea e DNA [Presence] in Unspecified specimen by SHEILA with probe detection Neisseria gonorrhea DNA probe, direct Lab Routine Pain in female genitalia on intercourse Cystitis Ordered: 06/25/2024 [facility] Comment on above: Ordered: 06/25/2024 Nuclear Ab [Titer] i n Serum [facility] OUTSIDE VENDOR CARDI AC OUTPATIENT EXTENDED RHYTHM RECORDING (WITHOUT TELEMETRY) OUTSIDE VENDOR CARDIAC OUTPATIENT EXTENDED RHYTHM RECORDING (WITHOUT TELEMETRY) Holter Routine Syncope, unspecified syncope type Ordered: 12/19/2023 [facility] Comment on above: Ordered: 12/19/2023 Patient Education Depression in adults - Discharge instructions [facility] Inst[facility] Know your Meds [facility] Work Phone: Patient referral [facility] Work Phone: End: 12-18-2024 STRESS ECHO TREADMILL STRESS ECHO TREADMILL Cardiology Routine Syncope, unspecified syncope type 1 Occurrences starting 12/19/2023 until 12/18/2024 [facility] Work Phone: Comment on above: 1 Occurrences starting 12/19/2023 until 12/18/2024 SURESWAB(R) ADVANCED VAGINITIS PLUS, TMA SURESWAB(R) ADVANCED VAGINITIS PLUS, TMA Pathology and Cytology Routine Pain in female genitalia on intercourse Cystitis Ordered: 06/25/2024 [facility] [employer] Work Phone: Comment on above: Ordered: 06/25/2024 SURGICAL PATHOLOGY [facility] Comment on above: Release Upon Ordering for 1 Occurrences starting 05/22/2024, 1 completed TSH W/REFLEX TO FT4 TSH W/REFLEX TO FT4 Lab Routine Weight gain History of alcohol dependence (HCC) Other fatigue Ordered: 12/12/2024 [facility] Comment on above: Ordered: 12/12/2024 End: 07-14-2023 Us abdominal real time w/image limited US ABD RT UPPER QUADRANT Radiology Routine Liver lesion 1 Occurrences starting 06/14/2022 until 07/14/2023 [facility] Work Phone: Comment on above: 1 Occurrences starting 06/14/2022 until 07/14/2023 Vitamin B1 Vitamin B1 Lab R outine Elevated liver enzymes Weight gain History of alcohol dependence (HCC) Ordered: 12/12/2024 [facility] Comment on above: Ordered: 12/12/2024 Vitamin B6 Vitamin B6 Lab R outine Elevated liver enzymes Weight gain History of alcohol dependence (HCC) Ordered: 12/12/2024 [facility] Work Phone: Comment on above: Ordered: 12/12/2024 XR Abdomen Supine an d Upright XR ABDOMEN 2V ROUTINE SUPINE W UPRIGHT/DECUB/CTL Radiology Routine Chronic idiopathic constipation 07/10/2024 11:30 AM EDT [facility] Work Phone: End: 11-08-2025 XR Abdomen Supine and Upright XR ABDOMEN 1V SUPINE Radiology Routine Pelvic floor dysfunction Chronic constipation 3x per week for 3 Occurrences starting 10/09/2024 until 11/08/2025 [facility] Comment on above: 3x per week for 3 Occurrences starting 0 10/09/2024 until 11/08/2025 [facility] Immunizations Immunization Date Immunization Notes Care Provider [facility] 09-06-2024 tetanus toxoid, redu rolanda diphtheria toxoid, and acellular pertussis vaccine, adsorbed Giovani Hagen MD Work Phone: [facility] 11-02-2021 SARS-CoV-2 mRNA (shriukkynzn-kslo-hzpzv se) vaccine Madhuri MISHRA [facility] 04-29-2021 SARS-CoV-2 (COVID-19 ) mRNA BNT-162b2 vax Madhuri MISHRA [facility] 03-03-2021 SARS-CoV-2 (COVID-19 ) mRNA BNT-162b2 vax Madhuri MISHRA [facility] Comment on above: Result Comment: 2022: TPVAL 02-09-2021 influenza virus vaccine, unspecified formulation Madhuri MISHRA [facility] 02-09-2021 influenza, injectabl e, quadrivalent, preservative free Zhen Blackston PT Work Phone: [facility] 03-16-2020 influenza virus vaccine, unspecified formulation Madhuri MISHRA [facility] 03-16-2020 Influenza, injectabl e, Madin [place] Canine Kidney, preservative free, quadrivalent Zhen Blackston PT Work Phone: [facility] 01-08-2018 influenza virus vaccine, unspecified formulation Madhuri MISHRA [facility] 01-08-2018 influenza, injectabl e, quadrivalent, contains preservative Zhen Blackston PT Work Phone: [facility] 01-08-2018 influenza, injectabl e, quadrivalent, preservative free Zhen Blackston PT Work Phone: [facility] 02-01-2017 influenza virus vaccine, unspecified formulation Madhuri MISHRA [facility] 02-01-2017 Influenza, injectabl e, Madin Jenn Canine Kidney, preservative free, quadrivalent Zhen Blackston PT Work Phone: [facility] 03-25-2016 influenza virus vaccine, unspecified formulation Madhuri MISHRA [facility] 03-25-2016 influenza, injectabl e, quadrivalent, preservative free Zhen Blackston PT Work Phone: [facility] 02-05-2010 tetanus toxoid, redu rolanda diphtheria toxoid, and acellular pertussis vaccine, adsorbed Madhuri MISHRA [facility] 01-05-2007 hepatitis B vaccine, pediatric or pediatric/adolescent dosage Madhuri MISHRA [facility] 11-02-2006 hepatitis B vaccine, pediatric or pediatric/adolescent dosage Madhuri MISHRA [facility] 11-02-2006 HPV, unspecified formulation Madhuri MISHRA [facility] 11-02-2006 human papilloma viru s vaccine, quadrivalent Zhen Burgess PT Work Phone: [facility] 11-02-2006 meningococcal ACWY vaccine, unspecified formulation Madhuri MISHRA [facility] [facility] 11-02-2006 meningococcal polysaccharide (groups A, C, Y and W-135) diphtheria toxoid conjugate vaccine (MCV4P) Zhen Burgess PT Work Phone: [facility] 02-20-1998 hepatitis B vaccine, pediatric or pediatric/adolescent dosage Madhuri MISHRA [facility] 12-28-1993 diphtheria, tetanus toxoids and pertussis vaccine Zhen Burgess PT Work Phone: [facility] 12-07-1992 diphtheria, tetanus toxoids and pertussis vaccine Zhen Burgess PT Work Phone: [facility] 12-07-1992 measles, mumps and rubella virus vaccine Madhuri MISHRA [facility] 12-07-1992 trivalent poliovirus vaccine, live, oral Zhen Burgess PT Work Phone: [facility] 06-09-1992 diphtheria, tetanus toxoids and pertussis vaccine Zhen Burgess PT Work Phone: [facility] 06-09-1992 measles, mumps and rubella virus vaccine Madhuricecille MISHRA [facility] 06-09-1992 trivalent poliovirus vaccine, live, oral Zhen Burgess PT Work Phone: [facility] 10-31-1990 varicella virus vaccine Zi MISHRA [facility] 06-20-1990 diphtheria, tetanus toxoids and pertussis vaccine Zhen Burgess PT Work Phone: [facility] 05-21-1990 trivalent poliovirus vaccine, live, oral Zhen Burgess PT Work Phone: [facility] 01-10-1989 trivalent poliovirus vaccine, live, oral Zhen Burgess PT Work Phone: [facility] NEGATED: Highlighted row has not occurred!05-01-2019 influenza virus vaccine, live, attenuated, for intranasal use Madhuri MISHRA [facility] NEGATED: Highlighted row has not occurred!04-03-2019 influenza virus vaccine, live, attenuated, for intranasal use Madhuri MISHRA [facility] Payers Date Payer Category Payer Self-pay [id number] 2020 Private Health Insurance [id number] 2020 Unknown [id number]. 1.13.159.2.7 .3.479923.315 1988 Unknown [id number] 2.16.840.1.910649.3.579.2.1 82 1988 Unknown [id number] 2.16.840.1.443615.3.579.2.5 93 1988 Unknown [id number] 2.16.840.1.340349.3.579.2.5 93 1988 Unknown [id number] 2.16.840.1.379319.3.579.2.5 93 1988 Unknown [id number] 2.16.840.1.622025.3.579.2.5 93 1988 Unknown [id number] 2.16.840.1.636753.3.579.2.5 93 1988 Unknown [id number] 2.16.840.1.657924.3.579.2.5 93 1988 Unknown [id number] 2.16.840.1.617527.3.579.2.5 93 1988 Unknown [id number] 2.16.840.1.806844.3.579.2.5 93 1988 Unknown [id number] 2.16.840.1.816479.3.579.2.5 93 1988 Unknown [id number] 2.16840.1.769471.3.579.2.5 93 1988 Unknown [id number] 2.16.840.1.448787.3.579.2.5 93 1988 Unknown [id number] 2.16.840.1.968825.3.579.2.5 93 1988 Unknown [id number] 2.16.840.1.113812.3.579.2.5 93 1988 Unknown [id number] 2.16.840.1.835721.3.579.2.1 77 1988 Unknown [id number] 2.16.840.1.835890.3.579.2.1 259 1988 Unknown [id number] 2.16.840.1.911055.3.579.2.1 259 1988 Unknown [id number] 2.16.840.1.424651.3.579.2.1 259 1988 Unknown [id number] 2.16.840.1.528981.3.579.2.1 259 1988 Unknown [id number] 2.16.840.1.643668.3.579.2.1 259 1988 Unknown [id number] 2.16.840.1.255809.3.579.2.1 259 1988 Unknown [id number] 2.16.840.1.865198.3.579.2.1 259 1988 Unknown [id number] 2.16.840.1.246776.3.579.2.1 259 1988 Unknown [id number] 2.16.840.1.238352.3.579.2.1 259 1988 Unknown [id number] 2.16.840.1.379099.3.579.2.1 259 1988 Unknown [id number] 2.16840.1.828012.3.579.2.1 259 1988 Unknown [id number] 2.16840.1.894225.3.579.2.1 259 1988 Unknown [id number] 2.16840.1.851971.3.579.2.1 259 1988 Unknown [id number] 2.16840.1.288712.3.579.2.1 259 1988 Unknown [id number] 2.16840.1.634356.3.579.2.1 259 1988 Unknown [id number] 2.16840.1.912521.3.579.2.1 259 1988 Unknown [id number] 2.16840.1.117934.3.579.2.1 259 1988 Unknown [id number] 2.16840.1.036413.3.579.2.1 259 1988 Unknown [id number] 2.16.840.1.961981.3.579.2.1 259 1988 Unknown [id number] 2.16840.1.272318.3.579.2.1 259 1988 Unknown [id number] 2.16.840.1.101125.3.579.2.1 259 1988 Unknown [id number] 2.16.840.1.671136.3.579.2.1 259 1988 Unknown [id number] 2.16.840.1.795446.3.579.2.1 259 1988 Unknown [id number] 2.16.840.1.119607.3.579.2.1 259 1988 Unknown [id number] 2.16.840.1.430923.3.579.2.1 259 1988 Unknown [id number] 2.16.840.1.881572.3.579.2.1 259 1988 Unknown [id number] 2.16840.1.048883.3.579.2.1 259 1988 Unknown [id number] 2.16840.1.786388.3.579.2.1 259 1988 Unknown [id number] 2.16.840.1.499219.3.579.2.1 259 1988 Unknown [id number] 2.16.840.1.524634.3.579.2.1 259 1988 Unknown [id number] 2.16840.1.499157.3.579.2.1 259 1988 Unknown [id number] 2.16.840.1.938145.3.579.2.1 259 1988 Unknown [id number] 2.16.840.1.847663.3.579.2.1 259 1988 Unknown [id number] 2.16.840.1.868698.3.579.2.1 259 1988 Unknown [id number] 2.16.840.1.006248.3.579.2.1 259 1988 Unknown [id number] 2.16.840.1.681843.3.579.2.1 259 1988 Unknown [id number] 2.16.840.1.338321.3.579.2.1 259 1988 Unknown [id number] 2.16.840.1.944503.3.579.2.1 259 1988 Unknown [id number] 2.16.840.1.930872.3.579.2.1 259 1988 Unknown [id number] 2.16.840.1.741941.3.579.2.1 259 1988 Unknown [id number] 2.16.840.1.230434.3.579.2.1 259 1988 Unknown [id number] 2.16.840.1.318841.3.579.2.1 259 1988 Unknown [id number] 2.16840.1.511705.3.579.2.1 259 1988 Unknown [id number] 2.16.840.1.535802.3.579.2.1 259 1988 Unknown [id number] 2.16.840.1.913334.3.579.2.1 259 1988 Unknown [id number] 2.16.840.1.882625.3.579.2.1 259 1988 Unknown [id number] 2.16.840.1.455379.3.579.2.1 259 1988 Unknown [id number] 2.16.840.1.912549.3.579.2.1 259 1988 Unknown [id number] 2.16.840.1.397382.3.579.2.1 259 1988 Unknown [id number] 2.16.840.1.297249.3.579.2.1 259 1988 Unknown [id number] 2.16.840.1.967867.3.579.2.7 27 1988 Unknown [id number] 2.16.840.1.374877.3.579.2.7 27 1988 Unknown [id number] 2.16.840.1.115808.3.579.2.7 27 1959 Unknown [id number] Unknown 100 [facility] [id number] Unknown [id number] 2.16.840.1.797028.3.579.2.5 31 Social History Date Type Detail Facility Tobacco smoking stat us IDIS Unknown if ever smoked [facility] Work Phone: Start: 1990 Sex Assigned At Female [facility] Start: 03-28-2019 End: 05-27-2022 Tobacco smoking status IDIS Never smoked tobacco [facility] Start: 05-27-2022 End: 10-10-2024 Tobacco use and exposure Smokeless tobacco non-user [facility] Start: 05-27-2022 End: 12-30-2024 Alcohol intake Current drinker of alcohol (finding) [facility] Start: 03-28-2019 Alcohol Comment socially [facility] Start: 1990 Sex Assigned At Not on file [facility] Start: 10-17-2022 End: 11-02-2022 Sex Assigned At [facility] Start: 06-29-2022 End: 12-28-2023 Tobacco smoking status Ex-smoker (finding) [facility] Start: 01-24-2019 End: 12-31-2024 Tobacco smoking status Never [facility] Start: 10-17-2022 End: 11-02-2022 History of Social function [facility] Start: 06-08-2021 Gender identity Identifies as female gender (finding) [facility] Start: 11-16-2021 End: 11-26-2021 Exposure to SARS-CoV-2 (event) Not sure [facility] Start: 08-17-2024 History of tobacco use Current smoker [facility] Within the last year , have you been afraid of your partner or ex-partner? No [facility] Do you belong to any clubs or organizations such as scientology groups, unions, fraternal [...] occasion? Less than monthly [facility] Start: 02-02-2013 End: 08-19-2024 Sex Female (finding) [facility] History of tobacco use Cigarette Smoker [facility] Sexual Orientation [facility] Goals Date Patient Goal Desired Activity /State Personal health goal Personal health goal Functional Status Date Assessment Result Facility 10-08-2024 Patient Health [facility] ionnaire 2 item (PHQ-2) [Reported] [facility] 10-08-2024 PHQ-9 quick depressi on assessment panel [Reported.PHQ] [facility] 09-25-2024 Patient Health [facility] ionnaire 2 item (PHQ-2) [Reported] [facility] 09-25-2024 PHQ-9 quick depressi on assessment panel [Reported.PHQ] [facility] 09-17-2024 Patient Health [facility] ionnaire 2 item (PHQ-2) [Reported] [facility] 09-02-2024 Patient Health [facility] ionnaire 2 item (PHQ-2) [Reported] [facility] 08-19-2024 Functional status Patient at [facility] Work Phone: 12-28-2023 Functional Status N/A [facility] 06-30-2022 Functional Status N/A [facility] Mental Status Date Assessment Result Facility 08-19-2024 Cognitive function Cognitive Sta tus Patient at Baseline [facility] Work Phone: Clinical Notes 05-03-2022 to 01-01-2025 Milton Fraire DPM FACFAS - 12/30/2024 1:20 PM EDTPatient InstructionsEmma Ying APRN.ISABEL - 12/30/2024 9:00 AM EDJaye Cabrera MD - 12/26/2024 1:20 PM EDTPatient Instructions Note Date & Type Note Facility 01-01-2025 Note Patient Education Urology Kidney Stones Kidney stones are solid, rock-like deposits that form inside of the kidneys. The kidneys are a pair of organs that make urine. A kidney stone may form in a kidney and move into other parts of the urinary tract, including the tubes that connect the kidneys to the bladder (ureters), the bladder, and the tube that carries urine out of the body (urethra). As the stone moves through these areas, it can cause intense pain and block the flow of urine. Kidney stones are created when high levels of certain minerals are found in the urine. The stones are usually passed out of the body through urination, but in some cases, medical treatment may be needed to remove them. What are the causes? Kidney stones may be caused by: ??? A condition in which certain glands produce too much parathyroid hormone (primary hyperparathyroidism), which causes too much calcium buildup in the blood. ??? A buildup of uric acid crystals in the bladder (hyperuricosuria). Uric acid is a chemical that the body produces when you eat certain foods. It usually leaves the body in the urine. ??? Narrowing (stricture) of one or both of the ureters. ??? A kidney blockage that is present at (congenital obstruction). ??? Past surgery on the kidney or the ureters. What increases the risk? The following factors may make you more likely to develop this condition: ??? Having had a kidney stone in the past. ??? Having a family history of kidney stones. ??? Not drinking enough water. ??? Eating a diet that is high in protein, salt (sodium), or sugar. ??? Being overweight or obese. What are the signs or symptoms? Symptoms of a kidney stone may include: ??? Pain in the side of the abdomen, right below the ribs (flank pain). Pain usually spreads (radiates) to the groin. ??? Needing to urinate often or urgently. ??? Painful urination. ??? Blood in the urine (hematuria). ??? Nausea. ??? Vomiting. ??? Fever and chills. How is this diagnosed? This condition may be diagnosed based on: ??? Your symptoms and medical history. ??? A physical exam. ??? Blood tests. ??? Urine tests. These may be done before and after the stone passes out of your body through urination. ??? Imaging tests, such as a CT scan, abdominal X-ray, or ultrasound. ??? A procedure to examine the inside of the bladder (cystoscopy). How is this treated? Treatment for kidney stones depends on the size, location, and makeup of the stones. Kidney stones will often pass out of the body through urination. You may need to: ??? Increase your fluid intake to help pass the stone. In some cases, you may be given fluids through an IV and may need to be monitored in the hospital. ??? Take medicine for pain. ??? Make changes in your diet to help prevent kidney stones from coming back. Sometimes, procedures are needed to remove a kidney stone. This may involve: ??? A procedure to break up kidney stones using: ? A focused beam of light (laser therapy). ? Shock waves (extracorporeal shock wave lithotripsy). ??? Surgery to remove kidney stones. This may be needed if you have severe pain or have stones that block your urinary tract. Follow these instructions at home: Medicines ??? Take wagf-ytc-jdfhzxl and prescription medicines only as told by your health care provider. ??? Ask your health care provider if the medicine prescribed to you requires you to avoid driving or using heavy machinery. Eating and drinking ??? Drink enough fluid to keep your urine pale yellow. You may be instructed to drink at least 8?10 glasses of water each day. This will help you pass the kidney stone. ??? If directed, change your diet. This may include: ? Limiting how much sodium you eat. ? Eating more fruits and vegetables. ? Limiting how much animal protein you eat. Animal proteins include red meat, poultry, fish, and eggs. ? Eating a normal amount of calcium (1,000?1,300 mg per day). ??? Follow instructions from your health care provider about eating or drinking restrictions. General instructions ??? Collect urine samples as told by your health care provider. You may need to collect a urine sample: ? 24 hours after you pass the stone. ? 8?12 weeks after you pass the kidney stone, and every 6?12 months after that. ??? Strain your urine every time you urinate, for as long as directed. Use the strainer that your health care provider recommends. ??? Do not throw out the kidney stone after passing it. Keep the stone so it can be tested by your health care provider. Testing the makeup of your kidney stone may help prevent you from getting kidney stones in the future. ??? Keep all follow-up visits. You may need follow-up X-rays or ultrasounds to make sure that your stone has passed. How is this prevented? To prevent another kidney stone: ??? Drink enough fluid to keep your urine pale yellow. Thi (more content not included)... [facility] 12-30-2024 History of Present illness Narrative Images from the original note were not included. Patient: Orion Harper : 1990 PCP: Giovani Hagen MD SUBJECTIVE This is a 34 y.o. [...] Patient states that she was surfing in [place] when she injured her right ankle and [...] Acute biliary pancreatitis without infection or necrosis ([facility]) 03/21/2023 Calculus of gallbladder without cholecystitis without [...] use, unspecified with alcohol-induced psychotic disorder, unspecified ([facility]) 09/02/2024 Alcohol withdrawal delirium ([facility]) 09/02/2024 Hypertension 09/02/2024 Sinus tachycardia 09/02/2024 Fall at home 09/10/2024 Extruding suture 09/25/2024 Lumbar radiculopathy 12/09/2024 Generalized anxiety disorder 12/12/2024 Obsessive-compulsive disorder 12/12/2024 Pelvic floor dysfunction 10/11/2024 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 Right ovarian cyst 12/12/2024 Morbid (severe) obesity due to excess calories ([facility]) 12/16/2024 Impaired fasting glucose 12/16/2024 Obesity, class [...] gastric emptying 09/12/2022 Gall stones Gestational hypertension ([facility]) H/O CT scan of chest 07/30/2018 Headache, tension-type 2024 HELLP syndrome ([facility]) History of being hospitalized History of colonoscopy 05/28/2019 History of diagnostic ultrasound 03/23/2018 History of diagnostic ultrasound 12/10/2021 History of esophagogastroduodenoscopy 06/30/2022 History of esophagogastroduodenoscopy 08/31/2022 History of HIDA scan 08/28/2021 History of medical problems 03/18/2020 History of medical problems 08/16/2021 History of medical problems 06/10/2022 Influenza A 05/07/2017 Ingrown toenail 2015 Left ovarian cyst 03/01/2019 Pancreatitis ([facility]) Pap smear for cervical cancer screening 04/20/2022 Post depression Seizures ([facility]) 2002 Medications: Current Outpatient Medications: albuterol (2.5 [...] mg by mouth Daily, Disp: , Rfl: Cwnxqjwfuse-Yqovtdbkb-Pmpgxa (Trelegy Ellipta) 100-62.5-25 MCG/ACT aerosol powder , INHALE 1 PUFF DAILY, Disp: 60 each, Rfl: 2 LORazepam (Ativan) 0.5 MG tablet, Take 0.5 mg by mouth in the morning and 0.5 mg before bedtime., Disp: , Rfl: metoprolol succinate XL (Toprol-XL) 25 MG 24 hr tablet, Take 1 tablet (25 mg) by mouth Daily, Disp: 100 tablet, Rfl: 3 montelukast (Singulair) 10 MG [...] < 3 seconds Digits 1-5 bilateral NEURO: [place] 5.07 monofilament was intact B/L. Vibratory sensation was intact B/L Musculoskeletal: Muscle strength was +5 over 5 all intrinsic and extrinsic muscles tested. There is Mild to moderate pain with direct palpation of the sinus tarsi pain with range of motion of the subtalar joint and ankle joint. Mild swelling noted over the sinus tarsi region. There is mild tenderness noted over the ATF and CF ligament Right foot. Unable to elicit an anterior drawer test secondary to guarding. No crepitus noted with range of [...] 12 megahertz linear probe Hypoechoic capsulitis of the sinus tarsi region. With significant fluid collection noted within the subtalar joint and within the joint capsule of the subtalar joint. Unable to visualize the interosseous talocalcaneal ligament Right foot also having synovitis of the ankle [...] treatment no complications follow up 2 weeks Milton Fraire DPM FACFAS documented in this encounter [facility] 12-30-2024 Instructions Emma Ying APRN.[employer] - 12/30/2024 9:42 AM EDT Images from [...] to your home. I recommend Camilla in [place], as she is approximately 30 minutes from you and has received positive feedback from other patients. - I have printed your pelvic PT [...] are awaiting an MRI to evaluate for bulging discs or other issues. - Continue with your neurologist s recommendations and let me know if there [...] the muscles become overactive, strained or uncoordinated, they may cause pain in the pelvis. This pain [...] therapy, therapeutic exercise, postural training, breathing exercises, neuromuscular reeducation (teaching how to improve pelvic floor muscle control including relaxation, contraction, and coordination), biofeedback, and home exercise program. [...] a physical therapist. documented in this encounter [facility] 12-30-2024 History of Present illness Narrative Images from the original note were not included. [facility] [place] SECTION FOR CHRONIC PELVIC PAIN OUTPATIENT VISIT DATE 12/30/2024 OUTPATIENT VISIT TYPE CONSULT REFERRING PROVIDER: Javy Boudreaux MD PRIMARY CARE PROVIDER: Giovani Hagen MD, MD PRIMARY REALTY SPECIALIST: Consultation requested by referring provider above for an opinion regarding Orion Harper, and my final recommendations will be communicated back to the requesting physician by way of shared medical record or letter via [place] mail. Recording using XTRM software for draft documentation of the visit was discussed with the patient/authorized licensing representative; all questions welcomed and answered. Patient/authorized licensing representative agreed to proceed CHIEF COMPLAINT/REASON FOR CONSULTATION Chronic pelvic pain evaluation HISTORY OF PRESENT ILLNESS Milly is a 34 year old who presents for evaluation of chronic pelvic pain. The patient is a 34-year-old female with a history of three C-sections, presenting with dyspareunia and back pain. The patient reports a two-year [...] is not in contact with those individuals. Creative Coordinator Hx: (page 3) Menarche: 9 Currently experiences: Not menstruating Duration of dysmenorrhea symptoms: n/a Currently missing school/work: N/A Prior dysmenorrhea treatment: Other, Hysterectomy Current control: Nothing History of STD: Negative history [place] intake LMP: Patient's last menstrual period was 05/25/2015. Cycles: Hysterectomy, Flow: n/a Intermenstrual spotting between periods: N/A Last pap: Pap Results: WNL 03/20/2024, HPV: History of abnormal pap: Yes [place]: (MA intake) Dyspareunia: both insertional and deep [...] Pain characteristics: (page 5) Pain started (month/year): [id number] Inciting event: No obvious cause/do not know Onset: Gradual Duration of pain: 2-5 years Character of pain: Sharp, stabbing Wakes from sleep: No Radiation of pain: No Aggravating factors: [place]/Sexual contact Alleviating factors: Nothing makes it better Bowel habits: (page 12-13) Nausea/vomiting: endorses Diarrhea: denies Abdominal pain: denies Bloating: denies Constipation: denies Increased pain with bowel movements: denies Blood in stool: endorses Pain with change in frequency of stool: denies Pain with change in appearance of stool: denies Pain changes with bowel movements: denies. 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 The sensitive examination was discussed with the Patient or Patient's Authorized Cane Flume Feeding Machine Operator. As applicable, any other physician, advance practice provider, medical student, or other health professional student that will be observing or involved in the sensitive examination for educational or training purposes was discussed with the Patient or Authorized Cane Flume Feeding Machine Operator. The Patient or Authorized Cane Flume Feeding Machine Operator has agreed to proceed with the sensitive [...] Labs: Tests - Electromyography: Abnormal (patient reported failed exam). - Laparoscopic Surgical Evaluations (two procedures): [...] exam. Prior interventions (OCPs, laparoscopic adhesiolysis, vaginal estrogen, amitriptyline cream) have not provided relief. Exam reveals left-sided pelvic floor hypertonicity and vulvar tenderness consistent with vulvodynia. - Start vaginal cyclobenzaprine suppositories, 1-2 tablets per dose, up to 3 times daily; advised use prior to intercourse, after intercourse if needed, and before PT sessions; discussed that vaginal route minimizes systemic side effects such as sedation. - Refer to pelvic floor physical therapy; provided order and instructions to locate a closer provider via pelvicrehab.[employer]. - Educated on pelvic floor anatomy, the [...] cholecystectomy; currently using Miralax daily and increased water intake. - Advised continuation of Miralax and high [...] with more than 50% of the total hiuc-lt-dmvc time of the visit in counseling / coordination of care. I personally interviewed, confirmed and edited the above information if obtained by others. Emma Ying APRN.CNP This note was written with the assistance of Xavier [employer]. It has been reviewed for accuracy however there may remain errors. [1] Social History Tobacco Use Smoking status: Never Smokeless tobacco: Never Vaping Use Vaping status: Never Used Substance Use Topics Alcohol use: Yes Alcohol/week: 4.0 standard drinks of alcohol Types: 2 Cans of beer, 2 Shots of liquor per week Comment: socially Drug use: Never documented in this encounter [facility] 12-30-2024 Note HNO ID: [id number] Author: EMMA YING APRN.ISABEL Service: ? Author Type: Nurse Practitioner Type: Progress Notes Filed: 12/30/2024 10:35 Note Text: [facility] [place] SECTION FOR CHRONIC PELVIC PAIN OUTPATIENT VISIT DATE 12/30/2024 OUTPATIENT VISIT TYPE CONSULT REFERRING PROVIDER: Javy Boudreaux MD PRIMARY CARE PROVIDER: Giovani Hagen MD, PRIMARY REALTY SPECIALIST: Consultation requested by referring provider above for an opinion regarding Orion Harper, and my final recommendations will be communicated back to the requesting physician by way of shared medical record or letter via [place] mail. Recording using XTRM software for draft documentation of the visit was discussed with the patient/authorized licensing representative; all questions welcomed and answered. Patient/authorized licensing representative agreed to proceed CHIEF COMPLAINT/REASON FOR CONSULTATION Chronic pelvic pain evaluation HISTORY OF PRESENT ILLNESS Milly is a 34 year old who presents for evaluation of chronic pelvic pain. The patient is a 34-year-old female with a history of three C-sections, presenting with dyspareunia and back pain. The patient reports a two-year [...] is not in contact with those individuals. Creative Coordinator Hx: (page 3) Menarche: 9 Currently experiences: Not menstruating Duration of dysmenorrhea symptoms: n/a Currently missing school/work: N/A Prior dysmenorrhea treatment: Other, Hysterectomy Current control: Nothing History of STD: Negative history [place] intake LMP: Patient's last menstrual period was 05/25/2015. Cycles: Hysterectomy, Flow: n/a Intermenstrual spotting between periods: N/A Last pap: Pap Results: WNL 03/20/2024, HPV: History of abnormal pap: Yes [place]: ([place] intake) Dyspareunia: both insertional and deep [...] Pain characteristics: (page 5) Pain started (month/year): 4649-4921 Inciting event: No obvious cause/do not know Onset: Gradual Duration of pain: 2-5 years Character of pain: Sharp, stabbing Wakes from sleep: No Radiation of pain: No Aggravating factors: [place]/Sexual contact Alleviating factors: Nothing makes it better Bowel habits: (page 12-13) Nausea/vomiting: endorses Diarrhea: denies Abdominal pain: denies Bloating: denies Constipation: denies Increased pain with bowel movements: denies Blood in stool: endorses Pain with change in frequency of stool: (more content not included)... [facility] 12-26-2024 History of Present illness Narrative Images from [...] paresthesias: Yes tingling: Yes weakness: Yes Subjective Orionbianca Harper is a 34 y.o. female who presents for No chief complaint on file. History of Present Illness The patient presents for evaluation of back pain, ankle pain, and migraines. She experiences daily leg pain, which is exacerbated by standing, bending, twisting, or prolonged sitting. The pain also disrupts her sleep. She describes a sensation of pins and needles down her leg when standing or sitting for extended periods. She [...] chipping her ankle again while surfing in [place]. Despite receiving four steroid injections, she continues to experience soreness. She also fractured her tibial plateau in 06/2024. She continues to experience migraines once or twice a week, often accompanied by nausea. MEDICATIONS CURRENT MEDS: Trileptal 300 mg Oral Twice daily PREVIOUS MEDS: Prednisone Oral Reason for Discontinuation: Did not help with inflammation Lyrica Review of Systems Const: Denies appetite change, [...] L5, as indicated by the EMG results. An MRI of the back will be ordered to further investigate the cause of the pain. The dosage of Trileptal will be increased to 300 mg, to be taken half in the morning and one at night. A prescription refill for Trileptal will be sent to [facility] in [place]. 2. Ankle pain. The patient reports persistent ankle pain following a fall in December of last year, which resulted in a sprain, torn tendons, and a fracture. Despite previous treatment with prednisone and steroid injections, the pain remains. No new treatment was discussed during this visit. 3. Migraines. The patient experiences migraines once or twice a week, accompanied by nausea. The increased dosage of Trileptal is also intended to help manage these symptoms. 4. I will obtain an MRI of the lumbar spine to assess for a structural lesion including degenerative lumbar spine disease which may be contributing to the patient's symptoms. 5. Trileptal 300 mg po BID. This clinical note was created utilizing [employer] documentation system. All information has been thoroughly reviewed, corrected as necessary, and authenticated by the provider to ensure accuracy and completeness. On occasion, [employer] documentation system erroneously drops words or replaces a spoken word with a similar sounding word. Please notify with any questions or concerns regarding this clinical note. documented in this encounter [facility] 12-16-2024 Telephone encounter Note Pt called re: doxepin dosage, when she was discharged from the rehab in [place] they had her taking Doxepin 100mg- take 2 at bedtime--pt is requesting dose be updated and [facility] 12-16-2024 Miscellaneous Notes Pt called re: doxepin dosage, when she was discharged from the rehab in [place] they had her taking Doxepin 100mg- take 2 at bedtime--pt is requesting dose be updated and [facility] documented in this encounter [facility] 12-16-2024 History of Present illness Narrative Associated Problem(s): PTSD (post-traumatic stress disorder) S/p rehab Associated Problem(s): Body mass index (BMI) 36.0-36.9, adult Can't exercise due to chip Associated Problem(s): Morbid (severe) obesity due to excess calories ([facility]) Weight loss Associated Problem(s): Obesity, class 2 Probably related to Diabetes Associated Problem(s): Nonalcoholic steatohepatitis (ENGLISH) F/Up with GI Numbers are improved since stopping alcohol Associated Problem(s): Weight gain Has seen [employer] in the past. Associated Problem(s): Lumbar radiculopathy Has had shots Encouraged weight lost EMG shows Left L4 moderate radiculopathy Images from the original note were not included. Subjective Patient ID: Orion Harper is a 34 y.o. female who presents for lab results. Pt is here for lab results, there are 2 pending for the vitamin b 1 and 6 Went to rehab for mental health. Depression. Has had fatigue soreness and sweats and exhausted Sober from alcohol x 2 months Not really exercising much Current Outpatient Medications on File Prior to [...] time escitalopram (Lexapro) 20 MG tablet Take 20 mg by mouth Daily Awbxuhflvwv-Shuatvpmk-Esnvon (Trelegy Ellipta) 100-62.5-25 MCG/ACT aerosol powder INHALE [...] (300 mg) at bedtime. 34 tablet 11 predniSONE (Deltasone) 20 MG tablet Take 1 tablet (20 mg) by mouth Daily for 10 days 10 tablet 0 propranolol (Inderal) 10 MG tablet every 12 (twelve) hours [DISCONTINUED] cloNIDine (Catapres) 0.1 MG tablet 1 (one) time each day at the same time [DISCONTINUED] doxepin (SINEquan) 50 MG capsule Take 50 mg by mouth at bedtime [DISCONTINUED] prazosin (Minipress) 2 MG capsule Take 2 mg by mouth in the morning and 2 mg in the evening and 2 mg before bedtime. [DISCONTINUED] amphetamine-dextroamphetamine XR (Adderall XR) 10 MG [...] with the 10mg daily 30 capsule 0 [DISCONTINUED] cephalexin (Keflex) 500 MG capsule Take [...] 02/10/2023 TOENAIL EXCISION 2017 Visit Vitals BP 108/68 Pulse 93 Ht 5' 2 Wt 201 lb LMP (LMP Unknown) Comment: partial hysterectomy 05/2016 SpO2 98% BMI 36.76 kg/m OB Status Hysterectomy Smoking Status Former BSA 2 m Review of Systems Constitutional: Positive for unexpected weight change (Gain). Negative for chills, fatigue and fever. Respiratory: Negative for cough, shortness of breath and wheezing. Cardiovascular: Negative for chest pain, palpitations and leg swelling. Gastrointestinal: Negative for abdominal pain, constipation, diarrhea, nausea and vomiting. Genitourinary: Negative for dysuria and pelvic pain. Musculoskeletal: Positive for back pain. Neurological: Positive for weakness and numbness. Negative for headaches. Endocrine: Sweats easily Objective Physical Exam Assessment/Plan Problem List Items Addressed This Visit Nonalcoholic steatohepatitis (ENGLISH) - Primary F/Up with GI Numbers are improved since stopping alcohol PTSD (post-traumatic stress disorder) S/p rehab Relevant Medications prazosin (Minipress) 2 MG capsule Weight gain Has seen [employer] in the past. Relevant Medications dapagliflozin (Farxiga) 10 MG Body mass index (BMI) 36.0-36.9, adult Can't exercise due to chip Borderline diabetes Relevant Medications dapagliflozin (Farxiga) 10 MG Major depressive disorder, recurrent, moderate (HCC) Relevant Medications doxepin (SINEquan) 50 MG capsule Lumbar radiculopathy Has had shots Encouraged weight lost EMG shows Left L4 moderate radiculopathy Morbid (severe) obesity due to excess calories ([facility]) Weight loss Impaired fasting glucose Obesity, class 2 Probably related to Diabetes No follow-ups on file. documented in this encounter [facility] 12-16-2024 Telephone encounter Note Edd Sent. Maana Message. [facility] 12-16-2024 Miscellaneous Notes Adderall Sent. Maana Message. documented in this encounter [facility] 12-13-2024 History of Present illness Narrative Images from the original note were not included. Patient: Orion A Meredith : 1990 PCP: Giovani Hagen MD SUBJECTIVE This is a 34 y.o. female that presents today with a chief complaint of painful lateral aspect of the Right foot. The pain is located laterally at the level of the subtalar joint. They have noticed significant swelling and pain with ambulation. They deny history of trauma to the area. They have attempted numerous conservative therapies including shoe gear modifications anti-inflammatory medications rest ice and elevation to no avail. Patient states that she was surfing in [place] when she injured her right ankle and subtalar joint. She has been doing well since the surgery. No overt complaints. She does wear her orthotic devices occasionally. Allergies: Allergies Allergen Reactions Cat Dander Anaphylaxis [...] Acute biliary pancreatitis without infection or necrosis ([facility]) 03/21/2023 Calculus of gallbladder without cholecystitis without obstruction 03/23/2023 Cholecystitis 04/18/2023 History of acute pancreatitis 04/18/2023 History of cholecystectomy 04/18/2023 Cough 04/18/2023 Anaphylactic syndrome 04/18/2023 PTSD (post-traumatic stress disorder) 02/24/2015 Tinea 10/03/2023 Weight gain 10/03/2023 Glucose intolerance 10/03/2023 Dyshidrosis 10/03/2023 Cervical radiculopathy 12/26/2023 Obesity (BMI 35.0-39.9 without comorbidity) 02/06/2024 Localized edema 02/06/2024 Pain and swelling of left shoulder 04/03/2024 Asthmatic bronchitis with acute exacerbation (HCC) 04/16/2024 Snoring 04/16/2024 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 Prediabetes 06/06/2024 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 Major depressive disorder, recurrent, moderate (HCC) 08/20/2024 Alcohol use, unspecified with alcohol-induced psychotic disorder, unspecified (HCC) 09/02/2024 Alcohol withdrawal delirium (HCC) 09/02/2024 Hypertension 09/02/2024 Sinus tachycardia 09/02/2024 Fall at home 09/10/2024 Extruding suture 09/25/2024 Lumbar radiculopathy 12/09/2024 Generalized anxiety disorder 12/12/2024 Obsessive-compulsive disorder 12/12/2024 Pelvic floor dysfunction 10/11/2024 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 Right ovarian cyst 12/12/2024 Resolved Ambulatory Problems Diagnosis Date Noted Abnormal [...] gastric emptying 09/12/2022 Gall stones Gestational hypertension ([facility]) H/O CT scan of chest 07/30/2018 Headache, tension-type 2024 HELLP syndrome ([facility]) History of being hospitalized History of colonoscopy 05/28/2019 History of diagnostic ultrasound 03/23/2018 History of diagnostic ultrasound 12/10/2021 History of esophagogastroduodenoscopy 06/30/2022 History of esophagogastroduodenoscopy 08/31/2022 History of HIDA scan 08/28/2021 History of medical problems 03/18/2020 History of medical problems 08/16/2021 History of medical problems 06/10/2022 Influenza A 05/07/2017 Ingrown toenail 2015 Left ovarian cyst 03/01/2019 Pancreatitis ([facility]) Pap smear for cervical cancer screening 04/20/2022 Post depression Seizures (HCC) 2003 Medications: Current Outpatient Medications: albuterol (2.5 MG/3ML) 0.083% nebulizer solution, Take 3 mL (2.5 mg) by nebulization every 6 (six) hours if needed for wheezing, Disp: 75 mL, Rfl: 11 albuterol HFA 90 mcg/act inhaler, Inhale 2 puffs every 6 (six) hours if needed for wheezing, Disp: 18 g, Rfl: 3 buPROPion XL (Wellbutrin XL) 150 MG 24 hr tablet, Take 150 mg by mouth in the morning., Disp: , Rfl: Cariprazine HCl (Vraylar) 4.5 MG capsule, Take 1 capsule by mouth Daily, Disp: 100 capsule, Rfl: 3 citalopram (CeleXA) 10 MG tablet, 1 (one) time each day at the same time, Disp: , Rfl: cloNIDine (Catapres) 0.1 MG tablet, 1 (one) time each day at the same time, Disp: , Rfl: doxepin (SINEquan) 50 MG capsule, Take 50 mg by mouth at bedtime, Disp: , Rfl: escitalopram (Lexapro) 20 MG tablet, Take 20 mg by mouth Daily, Disp: , Rfl: Tthxcabwzab-Ucmpdigpt-Iricec (Trelegy Ellipta) 100-62.5-25 MCG/ACT aerosol powder , INHALE 1 PUFF DAILY, Disp: 60 each, Rfl: 2 LORazepam (Ativan) 0.5 MG tablet, Take 0.5 mg by mouth in the morning and 0.5 mg before bedtime., Disp: , Rfl: metoprolol succinate XL (Toprol-XL) 25 MG 24 hr tablet, Take 1 tablet (25 mg) by mouth Daily, Disp: 100 tablet, Rfl: 3 montelukast (Singulair) 10 MG [...] at bedtime., Disp: 34 tablet, Rfl: 11 prazosin (Minipress) 2 MG capsule, Take 2 mg by mouth in the morning and 2 mg in the evening and 2 mg before bedtime., Disp: , Rfl: predniSONE (Deltasone) 20 MG tablet, Take 1 tablet (20 mg) by mouth Daily for 10 days, Disp: 10 tablet, Rfl: 0 propranolol (Inderal) 10 MG tablet, every 12 [...] < 3 seconds Digits 1-5 bilateral NEURO: [place] 5.07 monofilament was intact B/L. Vibratory sensation was intact B/L Musculoskeletal: Muscle strength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 [...] Milton Fraire DPM FACFAS documented in this encounterSt. Joseph Medical CenterKqtbbwjmqj86-23-9635 History of Present illness Narrative* Acacia Vigil LPN - 06/25/2024 2:20 PM EST Reason for Appointment: Patient ID: Orion Harper is a 33 y.o. female who presents for Painful [place] and bleeding with intercourse Patient presents today [...] hyperactivity disorder (ADHD), predominantly inattentive type (CMS/HCC) 09/23/2022 Bipolar disorder, in partial remission, most recent episode manic ([facility]) 09/23/2022 Diverticular disease of colon 09/23/2022 Dysphagia 09/23/2022 Elevated liver enzymes 09/23/2022 Exercise induced bronchospasm ([facility]) 09/23/2022 Finding of above normal blood pressure 09/23/2022 History of hysterectomy 09/23/2022 Hyperglycemia 09/23/2022 Hypersexuality 09/23/2022 Insomnia 09/23/2022 Irritable bowel syndrome with constipation 09/23/2022 Mild intermittent asthma without complication ([facility]) 09/23/2022 Mood swings 09/23/2022 Nephrolithiasis 09/23/2022 Nonalcoholic steatohepatitis (ENGLISH) 09/23/2022 Other specified abnormal findings of blood chemistry 09/23/2022 Poor concentration 09/23/2022 Sacroiliitis, not elsewhere classified ([facility]) 09/23/2022 Skin pain 09/23/2022 Thyroid enlargement ([facility]) 09/23/2022 Atherosclerosis of aorta ([facility]) 06/16/2020 Atherosclerosis of both carotid arteries 11/16/2020 Atherosclerosis of coronary artery without angina pectoris ([facility]) 05/18/2021 Gastroesophageal reflux disease without esophagitis 07/09/2019 Gastroparesis 11/02/2022 Non-refractory idiopathic generalized epilepsy ([facility]) 11/22/2019 Osteoarthritis of knee 06/14/2019 Hypercholesterolemia ([facility]) 07/01/2021 Recurrent UTI 12/12/2022 Vitamin D deficiency 05/16/2019 Dizziness 12/13/2022 Acute nonintractable headache 12/13/2022 History of COVID-19 02/06/2023 Overweight 02/06/2023 Acute biliary pancreatitis without infection or necrosis 03/21/2023 Calculus of gallbladder without cholecystitis without obstruction 03/23/2023 Cholecystitis 04/18/2023 Encounter for postoperative care 04/18/2023 History of acute pancreatitis 04/18/2023 History of cholecystectomy 04/18/2023 Cough 04/18/2023 Anaphylactic syndrome 04/18/2023 PTSD (post-traumatic stress disorder) ([facility]) 02/24/2015 Tinea 10/03/2023 Weight gain 10/03/2023 Glucose intolerance 10/03/2023 Dyshidrosis 10/03/2023 Encounter for well adult exam without abnormal findings 12/04/2023 Cervical radiculopathy 12/26/2023 Obesity (BMI 35.0-39.9 without comorbidity) 02/06/2024 Localized edema 02/06/2024 Injury of right ankle 02/06/2024 Sprain of anterior talofibular ligament of right ankle 04/01/2024 Pain and swelling of left shoulder 04/03/2024 Asthmatic bronchitis with acute exacerbation (CMS/HCC) 04/16/2024 Snoring 04/16/2024 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[facility]) 06/06/2024 Prediabetes 06/06/2024 Resolved Ambulatory Problems Diagnosis [...] liver ultrasound 06/15/2022 Ankle sprain 01/10/24 Asthma ([facility]/HCC) COVID 03/11/2021 Delayed gastric emptying 09/12/2022 Gall [...] cervical cancer screening 04/20/2022 neg Post depression (CMS/[facility]) Social History Tobacco Use Smoking status: Former [...] in [facility]. Patient to use Coconut oil in the interm, as triple antibiotics will not be prescribed as to not cause c-diff again for patient. Patient to RTC for annual and PRN. Documented by Acacia Vigil LPN on behalf of: Darwin Starr DO documented in this encounterSt. Joseph Medical [id number] History of Present illness Narrative* Prateek Mcclellan Hong, DPM - 06/19/2024 2:30 PM EST Patient: [...] the morning., Disp: 45 tablet, Rfl: 2 Ppqvdmblcfd-Djlcwjeie-Fofwtv 100-62.5-25 MCG/ACT aerosol powder , Inhale 1 [...] OARRS reviewed, Rx sent into patient's pharmacy. [facility] [id number] Miscellaneous Notes* Telephone Encounter - VINH Roque - 06/19/2024 10:18 AM EST OARRS reviewed, Rx sent into patient's pharmacy. documented in this [facility]02-19-2025 Telephone encounter Note* Telephone Encounter - JASON Conti - 06/12/2024 10:56 PM EST The prescription has been sent to the pharmacy. Thank you. [facility] [id number] Miscellaneous Notes* Telephone Encounter - JASON Conti - 06/12/2024 10:56 PM EST The prescription has been sent to the pharmacy. Thank you. 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 The drive [place] way 1hr and 40 minutes. 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 When gets around people doesn't like to be asked questions and doesn't like to be put on the spot. 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 Bipolar well managed Anxiety Presents for follow-up [...] time for 1 dose 1 each 2 Karhpjbihct-Mkmxfqlsm-Rdytii 100-62.5-25 MCG/ACT aerosol powder Inhale 1 puff [...] 4 weeks (around 07/04/2024). documented in this encounterSt. Joseph Medical [id number] History of Present illness Narrative* VINH Sibley [...] escitalopram (LEXAPRO) 20 mg, Oral, Every morning Ofgxntezoba-Exnxlgawr-Uwhrch 100-62.5-25 MCG/ACT aerosol powder 1 puff, Inhalation, [...] Attention deficit hyperactivity disorder, predominantly inattentive type ([facility]) 09/23/2022 Bipolar disorder, in partial remission, most recent episode manic ([facility]) 09/23/2022 Diverticular disease of colon 09/23/2022 Dysphagia 09/23/2022 Elevated liver enzymes 09/23/2022 Exercise induced bronchospasm ([facility]) 09/23/2022 Finding of above normal blood pressure 09/23/2022 History of hysterectomy 09/23/2022 Hyperglycemia 09/23/2022 Hypersexuality 09/23/2022 Insomnia 09/23/2022 Irritable bowel syndrome with constipation 09/23/2022 Mild intermittent asthma without complication ([facility]) 09/23/2022 Mood swings 09/23/2022 Nephrolithiasis 09/23/2022 Nonalcoholic steatohepatitis (ENGLISH) 09/23/2022 Other specified abnormal findings of blood chemistry 09/23/2022 Poor concentration 09/23/2022 Sacroiliitis, not elsewhere classified ([facility]) 09/23/2022 Skin pain 09/23/2022 Thyroid enlargement ([facility]) 09/23/2022 Atherosclerosis of aorta ([facility]) 06/16/2020 Atherosclerosis of both carotid arteries 11/16/2020 Atherosclerosis of coronary artery without angina pectoris ([facility]) 05/18/2021 Gastroesophageal reflux disease without esophagitis 07/09/2019 Gastroparesis 11/02/2022 Non-refractory idiopathic generalized epilepsy ([facility]) 11/22/2019 Osteoarthritis of knee 06/14/2019 Hypercholesterolemia ([facility]) 07/01/2021 Recurrent UTI 12/12/2022 Vitamin D deficiency 05/16/2019 Dizziness 12/13/2022 Acute nonintractable headache 12/13/2022 History of COVID-19 02/06/2023 Overweight 02/06/2023 Acute biliary pancreatitis without infection or necrosis 03/21/2023 Calculus of gallbladder without cholecystitis without obstruction 03/23/2023 Cholecystitis 04/18/2023 Encounter for postoperative care 04/18/2023 History of acute pancreatitis 04/18/2023 History of cholecystectomy 04/18/2023 Cough 04/18/2023 Anaphylactic syndrome 04/18/2023 PTSD (post-traumatic stress disorder) ([facility] 02/24/2015 Tinea 10/03/2023 Weight gain 10/03/2023 Glucose intolerance 10/03/2023 Dyshidrosis 10/03/2023 Encounter for well adult exam without abnormal findings 12/04/2023 Cervical radiculopathy 12/26/2023 Obesity (BMI 35.0-39.9 without comorbidity) 02/06/2024 Localized edema 02/06/2024 Injury of right ankle 02/06/2024 Sprain of anterior talofibular ligament of right ankle 04/01/2024 Pain and swelling of left shoulder 04/03/2024 Asthmatic bronchitis with acute exacerbation ([facility]) 04/16/2024 Snoring 04/16/2024 Resolved Ambulatory Problems Diagnosis [...] liver ultrasound 06/15/2022 Ankle sprain 01/10/24 Asthma ([facility] COVID 03/11/2021 Delayed gastric emptying 09/12/2022 Gall [...] having a diagnostic laparoscopy performed at [facility] with Dr. Starr.results was reviewed with the patient and all restrictions have been lifted. Follow Up: Patient is to return to the office for annual exam unless needed otherwise. Documented by VINH Sibley on behalf of: VINH Sibley documented in this encounterSt. Joseph Medical CenterRyiohfpbzd87-89-1692 Telephone encounter Note* Telephone Encounter - Benito Soriano RN - 05/23/2024 3:25 PM EST ----- Message from Iliana Mercado PA-C sent at 05/23/2024 3:18 PM EST ----- Please provide information on precautions and information regarding Cdiff. Thank you Iliana Mercado PA-C ----- Message ----- From: Carol Winn MD Sent: 05/23/2024 2:44 PM EST To: FARNAZ Mohrssica, your stool is positive for C.diff I sent a script for vancomycin to take for 2 weeks. A script is sent Iliana, patient had Diarrhea for 2-3 weeks. Had bronchitis prior to that and was given steroids andantibiotics. Stool sample was collected during the colonoscopy Please Iliana send the patient information about c.diff and precautions to follow Carol Winn MD [facility]01-30-2025 Miscellaneous Notes* Telephone Encounter - Benito [...] follow Carol Winn MD documented in this encounterParkview Health Bryan Hospital01-29-2025 History and physical note * Carol [...] DATE: May 22, 2024 TIME: 1:39 PM [facility] Work Phone: [phone] History and physical note* Carol Winn MD [...] 2024 TIME: 1:39 PM documented in this encounterParkview Health Bryan Hospital01-29-2025 Nurse Note* Lindsey Buckley RN - [...] Lindsey Buckley RN In Department: AMBULATORY SURGERY [facility]01-29-2025 Nurse Note* Lindsey Buckley RN - [...] In Department: AMBULATORY SURGERY documented in this encounterParkview Health Bryan Hospital01-22-2025 Telephone encounter Note * Telephone Encounter - Rose Jarvis - 05/15/2024 3:56 PM EST Appts cxl, surgery notified to cxl. [facility]01-22-2025 Miscellaneous Notes* Telephone Encounter - Rose [...] time. Lydia Kelley DO documented in this encounterParkview Health Bryan Hospital01-22-2025 History of Present illness Narrative* Milton CorneliusbranJASON FACFAS - 05/15/2024 8:30 AM EST Images [...] of the anterior talofibular [place] [address] Magnetic Resonance Report Signed Patient: ORION HARPER MR#: [id number] : 1990 Acct:[id number] Age/Sex: 33 / F ADM Date: 03/14/24 Loc: MRI Attending Dr: Laurie Trujillo M.D. Ordering Physician: Laurie Trujillo M.D. Date of Service: 03/14/24 Procedure(s): MR ankle RT wo con Accession Number(s): [id number] cc: GIOVANI HAGEN ; Laurie Trujillo M.D. The [address] [address] Patient Name: ORION HARPER MRN: [facility]:[id number] date: 1990 Sex: F Assigned Patient Location: MRI Current Patient Location: Accession/Order Number: [id number] Exam Date: 03/14/2024 15:04 Report Date: 03/17/2024 [...] By: Michael Cortes M.D. Signed By: 03/17/24 09 Allergies: Allergies Allergen Reactions Cat Dander Anaphylaxis [...] cervical cancer screening 04/20/2022 neg Post depression ([facility] Medications: Current Outpatient Medications: albuterol (2.5 MG/3ML) [...] THE MORNING, Disp: 30 tablet, Rfl: 2 Ushilwvvuvi-Yqldrmrvf-Eaqipg 100-62.5-25 MCG/ACT aerosol powder , Inhale 1 [...] are palpable bilateral, no edema noted Neuro: [place] 5.07 monofilament intact, vibratory sensation intact Derm: [...] above-stated procedure. JASON Conti documented in this encounterSt. Joseph Medical CenterQiroagjixu74-18-4071 Telephone encounter Note* Telephone Encounter - VINH Roque - 05/10/2024 12:10 PM EST Pt was seen. OARRS reviewed, Rx sent into patient's pharmacy. [facility] CenterRqxshannjv75-55-5638 Miscellaneous Notes* Telephone Encounter - VINH Roque - 05/10/2024 12:10 PM EST Pt was seen. OARRS reviewed, Rx sent into patient's pharmacy. * Telephone Encounter - VINH Roque - 05/09/2024 1:07 PM EST Patient has appointment today. documented in this encounterSt. Joseph Medical CenterUlmfpaieou50-23-6998 History of Present illness Narrative* Giovani Hagen [...] DAY IN THE MORNING 30 tablet 2 Durospjojbu-Jenmvljgr-Eibptb 100-62.5-25 MCG/ACT aerosol powder Inhale 1 puff [...] of spine - Primary Relevant Medications HYDROcodone-acetaminophen ([place]) 5-325 MG tablet Other Relevant Orders Ambulatory referral to Pain Medicine No follow-ups on file. documented in this encounterSt. Joseph Medical CenterNmdghbowul05-10-5161 Telephone encounter Note* Telephone Encounter - VINH Roque - 05/09/2024 1:07 PM EST Patient has appointment today. [facility] Ikjtbtexuk29-92-2448 History of Present illness Narrative* Prateek Pedraza DPM - 05/08/2024 3:10 PM EST Patient: Orion Mcclellan Meredith : [...] THE MORNING, Disp: 30 tablet, Rfl: 2 Jujgmndobyt-Lvrmbxegc-Pcwmyu 100-62.5-25 MCG/ACT aerosol powder , Inhale 1 [...] 0 min Stress: Stress Concern Present (04/18/2023) [place] of Occupational Health - Occupational Stress Questionnaire Feeling of Stress : Very much Social Connections: Moderately Integrated (04/18/2023) Social Connection and Isolation Panel [NHANES] Frequency of Communication with Friends and Family: Three times a week Frequency of Social Gatherings with Friends and Family: Twice a week Attends Mandaeism Services: Never Active Member of Clubs or [...] of the right foot MRI: [place] [address] Magnetic Resonance Report Signed Patient: ORION HARPER MR#: [id number] : 1990 Acct:[id number] Age/Sex: 33 / F ADM Date: 03/14/24 Loc: MRI Attending Dr: Laurie Trujillo M.D. Ordering Physician: Laurie Trujillo M.D. Date of Service: 03/14/24 Procedure(s): MR ankle RT wo con Accession Number(s): [id number] cc: GIOVANI HAGEN ; Laurie Trujillo M.D. [address] [address] Patient Name: ORION HARPER MRN: [facility]:[id number] date: 1990 Sex: F Assigned Patient Location: MRI Current Patient Location: Accession/Order Number: [id number] Exam Date: 03/14/2024 15:04 Report Date: 03/17/2024 [...] warranted. Prateek Pedraza DPM documented in this encounterSt. Joseph Medical CenterBkxxaztrfj67-67-0401 Telephone encounter Note* Telephone Encounter - Criss Mccrary - 05/06/2024 1:40 PM EST Echo was faxed to Anne-Marie @ [phone] & scanned into outside ep. Patient is having a procedure. Criss Mccrary [facility]01-13-2025 Miscellaneous Notes* Telephone Encounter - Criss Holm - 05/06/2024 1:40 PM EST Echo was faxed to Anne-Marie @ [phone] & scanned into outside ep. Patient is having a procedure. Criss Mccrary documented in this encounterParkview Health Bryan Hospital01-10-2025 Telephone encounter Note * Telephone Encounter [...] seen at that time. Lydia Kelley DO [facility]01-09-2025 NoteHNO ID: [id number] Author: ZEHRA GRAY PA-C Service: ? Author Type: Physician Email Operations Manager Type: Progress Notes Filed: 05/02/2024 11:34 Note [...] Int J Clin Exp Med. 2015 Jan 15;8(10):21379-09. PMID: 81269954; PMCID: UCR4885508. Ruthann Bob, Juan MEEK, Rico M, Cosmo F, Tawnya J, Everardo O, Leyla F, Franci M, Alejandro G, Dorie A, Gianna E, Leyla L, French G, Kashmri A, Vicente U, Jodi S, Franc P, Max V, de Kole V, Leena M, Neo MARIE. Refining the Baveno elastography criteria for the definition of compensated advanced chronic liver disease. J Hepatol. 2020;74(5):7401-6750. doi: 10.1016/j.jhep.2020.11.050. Epub 2019Apr 01. PMID: 61086028. Izabel Bob, Chastity B, Martha Bob, Xiao Bob, Joon S, Nuria Roth, Trevin D, Trixie Kendrick. AASLD practice guidance on the clinical assessment and management of nonalcoholic fatty liver disease. Hepatology. 2022;77(5):4573-9668. doi:10.1097/HEP.6595103390130695JqouuzxeoSelect [facility] History of Present illness Narrative* Zehra [...] Int J Clin Exp Med. 2015 Jan 15;8(10):26325-35.PMID: 86446636; PMCID: FIR0307387. Ruthann Bob, Juan MEEK, Rico M, Cosmo F, Tawnya J, Everardo O, Leyla F, Franci M, Alejandro G, Dorie A, Gianna E, Leyla L, French Mcgovern, Kashmir A, Vicente U, Jodi S, Max Ortega V, Last V, Leena M, Neo MARIE. Refining the Baveno elastography criteria for the definition of compensated advanced chronic liver disease. J Hepatol. 2020;74(5):5622-7894. doi: 10.1016/j.jhep.2020.11.050. Epub 2019Apr 01. PMID: 64226251. Izabel Bob, Chastity Moran, Martha Bob, Xiao Bob, Joon S, Nuria Roth, Trevin Roth, Trixie Kendrick.AASLD practice guidance on the clinical assessment and management of nonalcoholic fatty liver disease. Hepatology. 2022;77(5):1797- 1835. doi:10.1097/HEP.5803486501748962 documented in this encounterParkview Health Bryan Hospital01-07-2025 History of Present illness Narrative* Sandy Toribio, RONALD - 04/30/2024 2:50 PM EST Reason for [...] on 05/23/[address] Starr at [facility]. MEDICATIONS Current Outpatient Medications Medication Instructions [...] escitalopram (LEXAPRO) 20 mg, Oral, Every morning Cuoyrxvfdkt-Itmsxxvzs-Dnxwog 100-62.5-25 MCG/ACT aerosol powder 1 puff, Inhalation, [...] constipation 09/23/2022 Mild intermittent asthma without complication ([facility]) 09/23/2022 Mood swings 09/23/2022 Nephrolithiasis 09/23/2022 Nonalcoholic steatohepatitis (ENGLISH) 09/23/2022 Other specified abnormal findings of blood chemistry 09/23/2022 Poor concentration 09/23/2022 Sacroiliitis, not elsewhere classified ([facility]) 09/23/2022 Skin pain 09/23/2022 Thyroid enlargement ([facility]) 09/23/2022 Atherosclerosis of aorta ([facility]) 06/16/2020 Atherosclerosis of both carotid arteries 11/16/2020 Atherosclerosis of coronary artery without angina pectoris ([facility]) 05/18/2021 Gastroesophageal reflux disease without esophagitis 07/09/2019 Gastroparesis 11/02/2022 Non-refractory idiopathic generalized epilepsy ([facility]) 11/22/2019 Osteoarthritis of knee 06/14/2019 Hypercholesterolemia ([facility]) 07/01/2021 Recurrent UTI 12/12/2022 Vitamin D deficiency 05/16/2019 Dizziness 12/13/2022 Acute nonintractable headache 12/13/2022 History of COVID-19 02/06/2023 Overweight 02/06/2023 Acute biliary pancreatitis without infection or necrosis 03/21/2023 Calculus of gallbladder without cholecystitis without obstruction 03/23/2023 Cholecystitis 04/18/2023 Encounter for postoperative care 04/18/2023 History of acute pancreatitis 04/18/2023 History of cholecystectomy 04/18/2023 Cough 04/18/2023 Anaphylactic syndrome 04/18/2023 PTSD (post-traumatic stress disorder) ([facility]) 02/24/2015 Tinea 10/03/2023 Weight gain 10/03/2023 Glucose [...] nursing note reviewed. Exam conducted with a client account representative present. Vitals: Estimated body mass index [...] reviewed, and patient is to proceed to [facility] OR. Follow Up: Patient is to follow up between 1-2 weeks post operative to assess proper healing and recovery fromprocedure. Documented by Sandy Toribio LPN on behalf of: Darwin Starr DO documented in this encounterSt. Joseph Medical CenterOjwmgnjzxx60-86-8321 History of Present illness Narrative* Iliana Mercado PA-C - 04/26/2024 3:05 PM EST DEPARTMENT OF GASTROENTEROLOGY - FOLLOW UP REASON FOR VISIT Orion Harper is a 33 year old female who is scheduled for follow up of elevated LFTs HISTORY OF PRESENT ILLNESS Oiron Harper is a 33 year old female who presents today for follow up of elevated LFTs. Patient reports she has had elevated liver enzymes for the past several years. She reports she saw Dr. Hylton in 2021 in [facility]. 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 Author Type: Physician Email Operations Manager Type: Progress Notes Filed: 04/26/2024 15:02 Note [...] she saw Dr. Hylton in 2021 in [facility]. 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 Iliana Mercado PA-C documented in this encounterParkview Health Bryan Hospital01-03-2025 NoteHNO ID: [id number] Author: LYDIA KELLEY, DO Service: ? Author [...] return to discuss consent (more content not included)...[facility]01-03-2025 History of Present illness Narrative* Lydia Kelley, DO - 04/26/2024 12:19 PM EST Images [...] Lydia Kelley D.O. M.P.H. documented in this encounterParkview Health Bryan Hospital12-30-2024 Telephone encounter Note * Telephone Encounter - BALDO STRONG - 04/22/2024 9:58 AM EST Patient states she was seen in office on 04-16 and then later in the week she ended up at the Urgent Care due to her cough. She would like Eva Pearpa called in for her cough. [facility] CenterQilnvmiwtc25-71-6611 Miscellaneous Notes* Telephone Encounter - BALDO STRONG - 04/22/2024 9:58 AM EST Patient states she was seen in office on 04-16 and then later in the week she ended up at the Urgent Care due to her cough. She would like Eva Pearls called in for her cough. documented in this encounterSt. Joseph Medical CenterMqgnynygny68-35-0498 History of Present illness Narrative* Josephine Gilman NP - 04/18/2024 4:35 PM EST Images from the original note were not included. [address] , [address] [place], [address] P: [phone] F: [phone] HPI Historian of HPI: patient Orion Harper [...] 20 tablet; Refill: 0 documented in this encounterSt. Joseph Medical CenterPjsfmlmmur71-76-4658 Telephone encounter Note* Telephone Encounter - Solo [...] she is unable to do the treadmill [facility] Work Phone: [phone] Miscellaneous Notes* Telephone Encounter - Solo Mora [...] to do the treadmill documented in this encounterParkview Health Bryan Hospital12-13-2024 Telephone encounter Note * Telephone Encounter - Criss Mccrary - 04/05/2024 1:01 PM EST Outside ep I have a copy @ my desk Criss Mccrary [facility]12-13-2024 Miscellaneous Notes* Telephone Encounter - Criss Holm - 04/05/2024 1:01 PM EST Outside ep I have a copy @ my desk Criss Mccrary documented in this encounterParkview Health Bryan Hospital12-11-2024 History of Present illness Narrative* Deena Lyn NP - 04/03/2024 10:30 AM EST Images from the original note were not included. Subjective Patient ID: Orionbianca Harper is a 33 y.o. female who [...] DAY IN THE MORNING 30 tablet 2 Pwfcrirtchc-Lslvnxezw-Ljpecn 100-62.5-25 MCG/ACT aerosol powder INHALE 1 PUFF [...] No follow-ups on file. documented in this encounterSt. Joseph Medical CenterTfwnmwjifh79-38-0492 Telephone encounter Note* Telephone Encounter - Criss Mccrary - 04/02/2024 3:50 PM EST This 'Ankle Surgery Clearance' was faxed over to Dr. Giovani Hagen (PCP) @ [phone] for signing. I spoke with the patient. Scanned into outside ep. Criss Mccrary [facility]12-10-2024 Miscellaneous Notes* Telephone Encounter - Criss Holm - 04/02/2024 3:50 PM EST This 'Ankle Surgery Clearance' was faxed over to Dr. Giovani Hagen (PCP) @ [phone] for signing. I spoke with the patient. Scanned into outside ep. 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 We discussed seeing endocrinology to help with [...] Thanks, Connie Lucas, RN contains abnormal data [facility] LIVER PANEL Component Ref Range & Units [...] ALBUMIN GLOBULIN RATIO 1.3 ontains abnormal data [facility] LIVER PANEL Component Ref Range & Units [...] - 29 U/L 72 High Lipase Order: [id number] Component Ref Range & Units 1 yr ago Lipase 13 - 60 U/L 260 High Hepatic Function Panel Order: [id number] Component Ref Range & Units 1 yr [...] g/dL 5.7 Low Hepatic Function Panel Order: [id number] Component Ref Range & Units 1 yr [...] ntains abnormal data COMPREHENSIVE METABOLIC PANEL Order: [id number] Component Ref Range & Units 1 yr [...] Filt Rate >60 mL/min/1.73m2 >60 Lipase Order: [id number] Component Ref Range & Units 1 yr [...] follow up with Dr. 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 We discussed seeing endocrinology to help with [...] FRONTAL/LAT Carol Winn MD documented in this encounterParkview Health Bryan Hospital12-09-2024 Telephone encounter Note * Telephone Encounter - Keri Jamil - 04/01/2024 11:18 AM EST Pt called to schedule, per message below. First Est slot is July 26 for VV. Please review and advise if a New Pt slot can be used for this Pt. Thank you, [facility]12-09-2024 History of Present illness Narrative* Giovani [...] DAY IN THE MORNING 30 tablet 2 Kefnyetnopi-Musiamhfd-Skmazk 100-62.5-25 MCG/ACT aerosol powder INHALE 1 PUFF [...] No follow-ups on file. documented in this encounterSt. Joseph Medical CenterJbbxpmrsqs43-07-0920 Telephone encounter Note* Telephone Encounter - Carol Winn MD - 03/29/2024 9:06 PM EST I saw her in the past for this Per my note, Was seen by Dr. Hylton locally Will obtain labs and fibroscan results She had Nausea and vomiting with statin Couldn't tolerate metformin due to nausea/vomiting and diarrhea She can still follow up with Dr. 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 We discussed seeing endocrinology to help with weight loss and insulin resistance We also discussed cutting back on ETOH to one drink a week (currently 3-4 drinks a week) Did she follow up with Dr. Hylton? She can schedule OV with me if she prefers [facility] Work Phone: [phone] 590-939712-06-2024 Telephone encounter Note* Telephone Encounter - Connie Lucas RN - 03/29/2024 10:[address] Winn, Pt JESSE Dx Fatty Liver, Liver Disease PT sent MYC message requesting a follow up labs show elevated LFTs and wanted them reviewed Please advise Thanks, Connie Lucas RN contains abnormal data [facility] LIVER PANEL Component Ref Range & Units [...] ALBUMIN GLOBULIN RATIO 1.3 ontains abnormal data [facility] LIVER PANEL Component Ref Range & Units [...] - 29 U/L 72 High Lipase Order: [id number] Component Ref Range & Units 1 yr ago Lipase 13 - 60 U/L 260 High Hepatic Function Panel Order: [id number] Component Ref Range & Units 1 yr [...] g/dL 5.7 Low Hepatic Function Panel Order: [id number] Component Ref Range & Units 1 yr [...] ntains abnormal data COMPREHENSIVE METABOLIC PANEL Order: [id number] Component Ref Range & Units 1 yr [...] Filt Rate >60 mL/min/1.73m2 >60 Lipase Order: [id number] Component Ref Range & Units 1 yr [...] follow up with Dr. 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 We discussed seeing endocrinology to help with [...] XR CHEST 2V FRONTAL/LAT Carol Winn MD [facility]12-04-2024 Telephone encounter Note* Telephone Encounter - VINH Roque - 03/27/2024 1:03 PM EST OARRS reviewed, Rx sent into patient's pharmacy. [facility] CenterMyjasrhiiz17-05-1681 Miscellaneous Notes* Telephone Encounter - VINH Roque - 03/27/2024 1:03 PM EST OARRS reviewed, Rx sent into patient's pharmacy. * Telephone Encounter - Monet Motley MA - 03/27/2024 12:35 PM EST Per hieu to increase tramadol 50mg 2 po every 6 prn documented in this encounterSt. Joseph Medical CenterEmbmozavky92-88-6943 Telephone encounter Note* Telephone Encounter - Monet Motley MA - 03/27/2024 12:35 PM EST Per hieu to increase tramadol 50mg 2 po every [address] [facility] CenterRgvwvjzmhn27-61-1225 Telephone encounter Note* Telephone Encounter - Giovani Hagen MD - 03/25/2024 3:59 PM EST Images from the original note were not included. Patient: Orion Harper : 1990 PCP: Giovani Hagen MD Orion Harper is a 33 y.o. female presenting [facility]. The main problem requiring [...] Flowsheet Row Patient Outreach from 01/17/2024 in [facility] POPULATION [facility] with [facility] Information Discharge Date 01/10/24 Discharged To: Home Setting Discharge Hospital [facility] Engagement Call Start Time 1232 Admission [...] End Time 1233 No follow-ups on file. [facility] CenterTihsyoczyb80-08-9087 Miscellaneous Notes* Telephone Encounter - Giovani Hagen MD - 03/25/2024 3:59 PM EST Images from the original note were not included. Patient: Orion Harper : 1990 PCP: Giovani Hagen MD Orion Harper is a 33 y.o. female presenting today for follow-up after being discharged from [facility] 10 days ago. The main problem [...] Row Patient Outreach from 01/17/2024 in [facility] with [facility] Information Discharge Date 01/10/24 Discharged To: Home Setting Discharge Hospital [facility] Engagement Call Start Time 1232 Admission [...] are in the chart. documented in this encounterSt. Joseph Medical CenterYwbxgdggsw45-26-9130 Telephone encounter Note* Telephone Encounter - BALDO STRONG - 03/25/2024 1:02 PM EST Patient called asking about the results of her MRI, please advise. Results are in the chart. [facility] CenterEtlgrkwqjk40-52-9633 History of Present illness Narrative* Sandy Toribio [...] escitalopram (LEXAPRO) 20 mg, Oral, Every morning Tuluqogrhne-Hsomupgdf-Ywhwtn 100-62.5-25 MCG/ACT aerosol powder INHALE 1 PUFF [...] Poor concentration 09/23/2022 Sacroiliitis, not elsewhere classified ([facility] 09/23/2022 Skin pain 09/23/2022 Thyroid enlargement ([facility] 09/23/2022 Atherosclerosis of aorta ([facility]) 06/16/2020 Atherosclerosis of both carotid arteries 11/16/2020 Atherosclerosis of coronary artery without angina pectoris ([facility] 05/18/2021 Gastroesophageal reflux disease without esophagitis 07/09/2019 Gastroparesis 11/02/2022 Non-refractory idiopathic generalized epilepsy ([facility] 11/22/2019 Osteoarthritis of knee 06/14/2019 Hypercholesterolemia ([facility] 07/01/2021 Recurrent UTI 12/12/2022 Vitamin D deficiency 05/16/2019 Dizziness 12/13/2022 Acute nonintractable headache 12/13/2022 History of COVID-19 02/06/2023 Overweight 02/06/2023 Acute biliary pancreatitis without infection or necrosis 03/21/2023 Calculus of gallbladder without cholecystitis without obstruction 03/23/2023 Cholecystitis 04/18/2023 Encounter for postoperative care 04/18/2023 History of acute pancreatitis 04/18/2023 History of cholecystectomy 04/18/2023 Cough 04/18/2023 Anaphylactic syndrome 04/18/2023 PTSD (post-traumatic stress disorder) ([facility]) 02/24/2015 Tinea 10/03/2023 Weight gain 10/03/2023 Glucose [...] nursing note reviewed. Exam conducted with a client account representative present. Vitals: Estimated body mass index [...] of: Darwin Starr DO documented in this [facility]11-14-2024 Telephone encounter Note* Telephone Encounter - VINH Roque - 03/07/2024 11:20 AM EST OARRS reviewed, Rx sent into patient's pharmacy. [facility] [id number] Miscellaneous Notes* Telephone Encounter - VINH Roque - 03/07/2024 11:20 AM EST OARRS reviewed, Rx sent into patient's pharmacy. documented in this [facility]11-14-2024 Telephone encounter Note* Telephone Encounter - VINH Roque - 03/07/2024 9:14 AM EST OARRS reviewed, Rx sent into patient's pharmacy. [facility] [id number] Miscellaneous Notes* Telephone Encounter - VINH Roque - 03/07/2024 9:14 AM EST OARRS reviewed, Rx sent into patient's pharmacy. * Telephone Encounter - Sasha Ng - 03/06/2024 4:22 PM EST ALPRAZolam (Xanax) 0.5 MG tablet [facility] documented in this [facility]11-13-2024 History of Present illness Narrative* Arun Hernadez [...] to be instructed in home exercise program. Care Home Goals: To be met in 10 weeks [...] 03/07/2024 2:57 PM EST documented in this encounterSt. Joseph Medical [id number] Telephone encounter Note* Telephone Encounter - Sasha Ng - 03/06/2024 4:22 PM EST ALPRAZolam (Xanax) 0.[address] [facility] CenterQkspqisunz11-96-4738 History of Present illness Narrative* hZen Burgess, PT - 02/12/2024 4:00 PM EDT [...] to be instructed in home exercise program. 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 Date: documented in this encounterSt. Joseph Medical [id number] History of Present illness Narrative* Giovani Hagen [...] DAY IN THE MORNING 30 tablet 2 Ftfwkoipyeq-Mxryfqorj-Jeetth 100-62.5-25 MCG/ACT aerosol powder INHALE 1 PUFF [...] No follow-ups on file. documented in this encounterSt. Joseph Medical CenterTaqmbfjdrk80-38-3708 Telephone encounter Note* Telephone Encounter - Millicent Cordova - 01/29/2024 11:22 AM EDT 25 visits out to 10/21/24 [facility] [id number] Miscellaneous Notes* Telephone Encounter - Millicent Cordova - 01/29/2024 11:22 AM EDT 25 visits out to 10/21/24 documented in this encounterSt. Joseph Medical [id number] History of Present illness Narrative* Acacia Vigil LPN - 01/22/2024 1:50 PM EDT Reason for [...] escitalopram (LEXAPRO) 20 mg, Oral, Every morning Cysmnefklid-Batfcbgqc-Ymwtwp 100-62.5-25 MCG/ACT aerosol powder INHALE 1 PUFF [...] Attention deficit hyperactivity disorder, predominantly inattentive type ([facility] 09/23/2022 Bipolar disorder, in partial remission, most recent episode manic ([facility] 09/23/2022 Diverticular disease of colon 09/23/2022 Dysphagia 09/23/2022 Elevated liver enzymes 09/23/2022 Exercise induced bronchospasm ([facility] 09/23/2022 Finding of above normal blood pressure 09/23/2022 History of hysterectomy 09/23/2022 Hyperglycemia 09/23/2022 Hypersexuality 09/23/2022 Insomnia 09/23/2022 Irritable bowel syndrome with constipation 09/23/2022 Mild intermittent asthma without complication ([facility]) 09/23/2022 Mood swings 09/23/2022 Nephrolithiasis 09/23/2022 Nonalcoholic steatohepatitis (ENGLISH) 09/23/2022 Other specified abnormal findings of blood chemistry 09/23/2022 Poor concentration 09/23/2022 Sacroiliitis, not elsewhere classified ([facility]) 09/23/2022 Skin pain 09/23/2022 Thyroid enlargement ([facility]) 09/23/2022 Atherosclerosis of aorta ([facility]) 06/16/2020 Atherosclerosis of both carotid arteries 11/16/2020 Atherosclerosis of coronary artery without angina pectoris ([facility]) 05/18/2021 Gastroesophageal reflux disease without esophagitis 07/09/2019 Gastroparesis 11/02/2022 Non-refractory idiopathic generalized epilepsy ([facility]) 11/22/2019 Osteoarthritis of knee 06/14/2019 Hypercholesterolemia ([facility]) 07/01/2021 Recurrent UTI 12/12/2022 Vitamin D deficiency 05/16/2019 Dizziness 12/13/2022 Acute nonintractable headache 12/13/2022 History of COVID-19 02/06/2023 Overweight 02/06/2023 Acute biliary pancreatitis without infection or necrosis 03/21/2023 Calculus of gallbladder without cholecystitis without obstruction 03/23/2023 Cholecystitis 04/18/2023 Encounter for postoperative care 04/18/2023 History of acute pancreatitis 04/18/2023 History of cholecystectomy 04/18/2023 Cough 04/18/2023 Anaphylactic syndrome 04/18/2023 PTSD (post-traumatic stress disorder) ([facility]) 02/24/2015 Tinea 10/03/2023 Weight gain 10/03/2023 Glucose [...] Abnormal LFTs Abnormal liver ultrasound 06/15/2022 Asthma ([facility] COVID 03/11/2021 Delayed gastric emptying 09/12/2022 Gall [...] nursing note reviewed. Exam conducted with a client account representative present. Vitals: Estimated body mass index [...] of: Darwin Starr DO documented in this encounterSt. Joseph Medical CenterDkqutsehda16-59-1925 History of Present illness Narrative* Giovani Hagen [...] DAY IN THE MORNING 30 tablet 2 Hncpfdmfttf-Onzrboqnx-Ikingj 100-62.5-25 MCG/ACT aerosol powder INHALE 1 PUFF [...] CT ANGIOGRAM CHEST 07/30/2018 CT ANGIOGRAM CHEST [facility] DATA LEGACY EGD 06/30/2022 Normal [...] No follow-ups on file. documented in this encounterSt. Joseph Medical CenterQpncffejie13-53-2155 Telephone encounter Note* Telephone Encounter - Mala Hirsch - 01/08/2024 12:52 PM EDT [facility] [place] [facility] [place] [facility] CenterBdynajksjn73-86-8955 Miscellaneous Notes* Telephone Encounter - Mala Hirsch - 01/08/2024 12:52 PM EDT [facility] [place] [facility] [place] documented in this encounterSt. Joseph Medical CenterZjzsstwwjp79-14-9694 Hospital Discharge instructions Patient Education 12/28/2023 15:59:41 Kidney Stones, Jrfq-xa-Hkmc Kidney Stones Kidney stones are rock-like masses [...] Follow these instructions at home: Medicines Take arjw-euq-xldzpmo and prescription medicines only as told by [...] provider. Document Revised: 12/02/2022 Document Reviewed: 12/02/2022 Snaapi[employer] Patient Education 2023 [employer]. Follow Up Care 11/07/2022 15:52:12 With:OLEG OSEI, BHAVESH Patterson, URL Address: When:1 year [facility] 09-03-2024 History of Present illness Narrative* Giovani Hagen [...] DAY IN THE MORNING 30 tablet 2 Kwlsheaewbt-Wqiktbvja-Opqnuh 100-62.5-25 MCG/ACT aerosol powder INHALE 1 PUFF [...] No follow-ups on file. documented in this encounterSt. Joseph Medical [id number] History of Present illness Narrative* Belle Mckoy Tech - 12/19/2023 3:44 PM EDT EVENT MONITOR DISPOSABLE PATCH INSTRUCTIONS Patient Name: Orion Harper [facility] Number: [id number] Skin prepped and cleansed with alcohol Patch secured to prepped area Monitor Activated Serial #: [id number] Patient Instructed: Prescribed order timeframe Bathing guidelines Usage of event button and diary documentation Return of monitor at the end of prescribed order Call with problems [phone] or [phone] ext. [phone] Patient expresses a good understanding of instructions Tristian Pretty documented in this encounterParkview [facility]08-27-2024 Instructions* Patient Instructions* Solo Mora MD - 12/19/2023 3:27 PM EDT Next Steps: 1). Please wear a heart monitor for 2 weeks and mail it back 2). Please get a stress echo done and follow up with me afterwards documented in this encounterParkview Health Bryan Hospital08-27-2024 History of Present illness Narrative* Solo Mora MD - 12/19/2023 2:45 PM EDT Images from the original note were not included. [facility] [place] Meghna Hooker Department of Cardiovascular Medicine SECTION OF CARDIAC PACING and ELECTROPHYSIOLOGY OUTPATIENT VISIT DATE December 19, 2023 OUTPATIENT VISIT TYPE NEW PRIMARY CARE PHYSICIAN: Giovani Hagen MD [address] [facility] [address] [place] [address] CHIEF COMPLAINT: Syncope, cardiac evaluation for family [...] had any workup done including Stress Echo, applied science and technologies dean or 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 Reports symptoms of palpitations [...] had any workup done including Stress Echo, applied science and technologies dean or 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 PLAN AND RECOMMENDATIONS: - Exercise stress echo for exertional syncope to rule out structural or arrhythmic cause - 2 week tina Fitzgerald personally interviewed, confirmed and edited the above information as obtained by others. CONTACT INFORMATION: Solo Mora MD documented in this encounterParkview Health [facility] Hospital08-26-2024 Telephone encounter Note * Telephone Encounter - RT. Aroldo Calvo - 12/18/2023 10:09 AM EDT Patient had labwork performed on 12-13-2023. Dr. Colvin wanted you to be aware so you could review them. [facility] CenterGijqwsvlsq64-60-4054 Miscellaneous Notes* Telephone Encounter - RT. Umesh R - 12/18/2023 10:09 AM EDT Patient had labwork performed on 12-13-2023. Dr. Colvin wanted you to be aware so you could review them. documented in this encounterSt. Joseph Medical CenterBhodsusfvj45-20-6383 Telephone encounter Note* Telephone Encounter - Criss Mccrary - 11/02/2023 10:39 AM EDT Images from the original note were not included. Records are in Care Everywhere: EP Referral- 11/01/23 (Dr. Shilo Dillon/Cardiology) Criss Mccrary [facility]07-11-2024 Miscellaneous Notes* Telephone Encounter - Criss Holm - 11/02/2023 10:39 AM EDT Images from the original note were not included. Records are in Care Everywhere: EP Referral- 11/01/23 (Dr. Shilo Dillon/Cardiology) Criss Mccrary documented in this encounterParkview Health Bryan Hospital11-27-2023 Miscellaneous Notes* Telephone Encounter - Charlette [...] PPI prior to transfer. documented in this encounterParkview Health Bryan Hospital07-13-2023 Miscellaneous Notes* Telephone Encounter - Janny Frances - 11/03/2022 3:18 PM EDT PA for Ibsrela initiated electronically. Awaiting response [facility] ID# [id number] Rx BIN [id number] Rx PCN CLAIMCR Rx Grp STOH documented in this encounterParkview Health Bryan Hospital07-12-2023 History of Present illness Narrative* Soraida Caldwell, PhD - 11/02/2022 5:16 PM EDT Behavioral Medicine [facility] [place] Name: Orion Harper MR#: [id number] Date: 11/02/2022 Time: 1 hour Referred by: [...] She was given the website for the [facility] Behavioral Medicine Program and shown the relaxation recordings with the recommendation to practice this and the rationale behind their use. Follow-up with Dr. Conteh was discussed as well as encouraging her to continue her PTSD work with a local trauma therapist. Soraida Zhang, Ph.D. documented in this encounterParkview Health Bryan Hospital07-12-2023 History of Present illness Narrative* Samuel Freeman MD - 11/02/2022 1:00 PM EDT Assessment ASSESSMENT 32 year old female with medical refractory gastroparesis. PLAN I discussed surgical therapy for gastroparesis in detail. Orion Harper is candidate for furthermedical treatment. Needs to stop Wegovy May consider for wireless motility capsule study Constipation medication change per Dr. 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 DO Palomo Keller Sp Ddsi Clinical Pool Please ask her to see [facility] to r/o endometriosis there was a very slight abnormal wave (not strong) suggesting its possible Called and spoke with the patient and relayed providers message. documented in this [facility]06-27-2023 Miscellaneous Notes* Telephone Encounter - Karen Haney LPN - 10/18/2022 11:43 AM EDT PA initiated via [email or web address]. Await response. Covered: Retail, Mail Order Unknown: Specialty, Long-Term Care Group ID: [id number] Group name: BIN: [id number] PCN: CLAIMCR documented in this encounterParkview Health Bryan Hospital06-27-2023 History of Present illness Narrative* Maria Dolores Corey DO - 10/18/2022 7:49 AM EDT Images from the original note were not included. documented [facility] this [facility]06-26-2023 Nurse Note* Janny Frances - 10/17/2022 10:47 AM EDT EGG completed. Able to drink the 500 ml of water without any difficulty. documented in this [facility]05-22-2023 History of Present illness Narrative* Oziel Vasquez, RT(R) - 09/12/2022 10:00 AM EDT RADIOLOGY [...] 2:45 PM PAGER/CONTACT #: documented in this encounterParkview Health [facility] Hospital05-10-2023 Nurse Note* Wilma Limon RN - [...] Wilma Limon RN In Department: AMBULATORY SURGERY [facility]05-10-[facility] Nurse Note* Wilma Limon RN - [...] In Department: AMBULATORY SURGERY documented in this encounterParkview Health Bryan Hospital05-10-2023 History and physical note * Carol [...] DATE: August 31, 2022 TIME: 2:51 PM [facility]05-10-[facility] History and physical note* Carol Winn [...] 2022 TIME: 2:51 PM documented in this encounterParkview Health Bryan Hospital05-10-2023 Nurse Note* Ayleen Aj RN - [...] Ayleen Aj RN In Department: AMBULATORY SURGERY [facility]05-03-2023 Miscellaneous Notes* Telephone Encounter - Светлана Agosto Ma - 08/24/2022 3:59 PM EDT Lm to confirm procedure for 08-31-22 documented in this encounterParkview Health [facility] Hospital03-14-2023 Hospital Discharge instructions Patient Education 07/05/2022 [...] degrees Follow Up Care 06/29/2022 09:09:39 With:Madhuri MISRHA Address: [facility] [address], [place] [address]- Business (1) When:11/04/2022 08:39:10 Comments:With a stone metabolic work-up [facility]03-09-2023 Nurse Note* Wilma Limon RN - 06/30/2022 12:46 PM EST Pt denies any nausea at this time. Pt given 3 oz of apple juice per request and tolerating at this time. Pt denies any other s/s at this time, smiling in conversation, 500ml of Nacl completed as well. Pt reports she feels ready to go home. [facility]03-09-[facility] Nurse Note* Wilma Limon RN - [...] In Department: AMBULATORY SURGERY documented in this encounterParkview Health [facility] Hospital03-09-2023 Nurse Note* Wilma Limon RN - [...] Pt resting in bed at this time. [facility]03-09-[facility] Nurse Note* Wilma Limon RN - [...] By: Wilma Limon In Department: AMBULATORY SURGERY [facility]03-09-2023 History and physical note* Carol Winn [...] DATE: June 30, 2022 TIME: 11:35 AM [facility]03-09-2023 History and physical note* Carol Winn [...] 2022 TIME: 11:35 AM documented in this encounterParkview Health [facility] Hospital03-09-2023 Nurse Note* Elissa Kwok RN - [...] Elissa Kwok RN In Department: AMBULATORY SURGERY [facility]03-02-2023 Miscellaneous Notes* Telephone Encounter - Светлана Agosto Ma - 06/23/2022 3:18 PM EST Confirmed procedure for 06-30-22 documented in this encounterParkview Health Bryan Hospital02-22-2023 History of Present illness Narrative* Monet [...] 15, 2022 8:08 PM documented in this encounterParkview Health Bryan Hospital02-21-2023 Miscellaneous Notes* Telephone Encounter - Wilma [...] MD 06/14/2022 9:35 AM EST Back to [facility] Milly, I reviewed the ultrasound done in November This hypodensity was felt to be a benign cyst I will order a follow up ultrasound to be done This is reassuring Carol Winn MD 06/14/2022 9:29 AM EST Ca Milly, the CT scan showed Fatty liver [...] if needed pending results documented in this encounterParkview Health [facility] Hospital02-17-2023 History of Present illness Narrative* RT Germain(R) - 06/10/2022 10:01 AM EST Radiology Service [...] 10, 2022 10:01 AM documented in this encounterParkview Health [facility] Hospital02-03-2023 History of Present illness Narrative* Acacia [...] 27, 2022 12:29 PM documented in this encounterParkview Health Bryan Hospital02-03-2023 History of Present illness Narrative* Carol [...] follow up with Dr. 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 We discussed seeing endocrinology to help with [...] No follow-ups on file. documented in this encounterParkview Health [facility] Hospital01-10-2023 Evaluation note* Encounter Date Diagnosis Assessment Notes Treatment Notes Treatment Clinical Notes Apr, ENGLISH (nonalcoholic steatohepatitis) (ICD-10 - K75.81) Apr, Abnormal ultrasound (ICD-10 - R93.89) Apr, Elevated liver enzymes (ICD-10 - R74.8) Apr, Liver cyst (ICD-10 - K76.89) YelloYello Other Evaluation + Plan note Future Appointments Appointment Date:06/30/2022 10:00:00 AM Scheduled Provider: Location:[facility] Appointment Type:Urology CALL PAT FT Appointment Date:07/05/2022 08:15:00 AM Scheduled Provider: Location:[facility] Appointment Type:Urology FT Diagnostic Tests Pending * [facility] App[facility]ments Appointment Date:11/07/2022 03:15:00 PM Scheduled Provider:Madhuri MISHRA MD Location:[facility] Future Appointments Appointment Date:12/30/2024 03:15:00 PM Scheduled Provider:Madhuri MISHRA MD Location:[facility] Appointment Type:URO Office Visit [facility] evaluation + Plan note Future Appointments Appointment Date:12/31/2024 03:30:00 PM Scheduled Provider:Iliana Cramer PA-C Location:[facility] Appointment Type:URO Complex Office Visit [facility] evaluation + Plan note Future Appointments Appointment Date:12/31/2025 03:30:00 PM Scheduled Provider:Iliana Cramer PA-C Location:[facility] Appointment Type:URO Office Visit [facility] evaluation noteNo assessment information available [facility] Work Phone: evaluation note* Diagnosis Fatty liver- Primary Other chronic nonalcoholic liver disease Bilious vomiting with nausea Right sided abdominal pain Abdominal pain, unspecified site Nausea Nausea alone History of diverticulitis SOB (shortness of breath) Shortness of breath documented in this encounter [facility] note* Diagnosis Liver lesion- Primary Other specified disorders of liver [facility]* Diagnosis Gastroparesis- Primary documented in this encounter [facility]* Diagnosis Gastroparesis- Primary documented in this encounter [facility]* Diagnosis Irritable bowel syndrome with constipation- Primary Irritable bowel syndrome documented in this encounter [facility] note* Diagnosis Gastroparesis documented in this encounter [facility]* Diagnosis Gastroparesis- Primary documented in this encounter [facility]* Diagnosis SOB (shortness of breath) Shortness of breath documented in this encounter [facility] note* Diagnosis Liver lesion Other specified disorders of liver documented in this encounter [facility] note* Diagnosis Elevated LFTs Other abnormal blood chemistry documented in this encounter [facility] note* Diagnosis Bilious vomiting with nausea Right sided abdominal pain Abdominal pain, unspecified site Nausea Nausea alone documented in this encounter [facility] note* Diagnosis Nausea Nausea alone documented in this encounter [facility] note* Diagnosis Gastroparesis- Primary documented in this encounter [facility] note* Diagnosis Syncope and collapse- Primary documented in this encounter [facility] note* Diagnosis Syncope, unspecified syncope type- Primary documented in this encounter [facility] note* Diagnosis Syncope, unspecified syncope type- Primary documented in this encounter [facility] note* Diagnosis Nausea- Primary Nausea alone PUD (peptic ulcer disease) Peptic ulcer, unspecified site, unspecified as acute or chronic, without mention of hemorrhage, perforation, or obstruction Nausea Nausea alone documented in this encounter [facility] note* Diagnosis PUD (peptic ulcer disease)- [...] perforation, or obstruction documented in this encounter [facility] note* Diagnosis Attention deficit hyperactivity disorder, [...] right ankle pain documented in this encounter [facility]* Diagnosis Attention deficit hyperactivity [...] asthma (CMS/HCC)- Primary [facility]* Diagnosis Elevated LFTs- Primary Other abnormal blood chemistry BRBPR (bright red blood per rectum) Hemorrhage of rectum and anus documented in this encounter [facility] Diagnosis Attention deficit hyperactivity disorder, [...] 35.0-39.9 without comorbidity) documented in this encounter [facility]* Diagnosis Elevated LFTs- Primary Other abnormal blood chemistry [facility] Diagnosis Elevated LFTs- Primary Other abnormal blood chemistry [facility] Diagnosis Attention deficit hyperactivity disorder, predominantly [...] right, initial encounter documented in this encounter [facility]* Diagnosis Right ankle instability- Primary Other joint derangement, not elsewhere classified, ankle and foot Right ankle instability Other joint derangement, not elsewhere classified, ankle and foot [facility] Diagnosis Sprain of anterior talofibular ligament of right ankle, initial encounter- Primary Right ankle instability Other joint derangement, not elsewhere classified, ankle and foot [facility] Diagnosis Attention deficit hyperactivity disorder, [...] episode manic (CMS/HCC) [facility] Attention deficit hyperactivity [...] of spine- Primary [facility] Diagnosis ENGLISH (nonalcoholic steatohepatitis)- Primary Other chronic nonalcoholic liver disease Right ankle instability Other joint derangement, not elsewhere classified, ankle and foot [facility] Diagnosis Attention deficit hyperactivity disorder, [...] Moderate persistent asthmatic bronchitis with acute exacerbation ([facility]/HCC)- Primary Sprain of anterior talofibular ligament of [...] cervix and uterus [facility] Diagnosis BRBPR (bright red blood per rectum) Hemorrhage of rectum and anus [facility] Diagnosis Attention deficit hyperactivity disorder, [...] Moderate persistent asthmatic bronchitis with acute exacerbation ([facility]/HCC)- Primary Sprain of anterior talofibular ligament of [...] of impulse control PTSD (post-traumatic stress disorder) ([facility]) Posttraumatic stress disorder [facility] Diagnosis Other specified dyspareunia- Primary Pelvic pain in female Unspecified symptom associated with female genital organs Pelvic pain in female- Primary Unspecified symptom associated with female genital organs Other specified dyspareunia [facility] Diagnosis Pelvic pain in female- Primary Unspecified symptom associated with female genital organs Other specified dyspareunia [facility] Diagnosis Chronic idiopathic constipation Unspecified constipation [facility] Diagnosis Attention deficit hyperactivity disorder, [...] in partial remission, most recent episode manic ([facility]/HCC) Tremors of nervous system- Primary Mild intermittent [...] not intractable, 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) 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 PTSD (post-traumatic stress disorder) ([facility]/HCC) Posttraumatic stress disorder Peroneal tendon tear, right, [...] Moderate persistent asthmatic bronchitis with acute exacerbation ([facility]/HCC)- Primary Sprain of anterior talofibular ligament of right ankle, subsequent encounter Snoring Other dyspnea and respiratory abnormality 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), predominantly inattentive type (CMS/HCC) Bipolar disorder, in partial remission, most recent episode manic (/HCC) Prediabetes Other abnormal glucose Anxiety- Primary Anxiety [...] subsequent encounter- Primary documented in this encounter [facility]* Diagnosis Palpitation- Primary Palpitations [facility] Diagnosis Attention deficit hyperactivity disorder, [...] system- Primary Mild intermittent asthma without complication ([facility]/HCC) Moderate persistent asthmatic bronchitis with acute exacerbation ([facility]/)- Primary Sprain of anterior talofibular ligament of right ankle, subsequent encounter Snoring Other dyspnea and respiratory abnormality 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), predominantly inattentive type (CMS/HCC) Bipolar disorder, in partial remission, most recent episode manic (/) Prediabetes Other abnormal glucose Anxiety- Primary Anxiety [...] complication, sequela- Primary documented in this encounter [facility]* Diagnosis Rectal pain- Primary Anal or rectal pain Hemorrhoids, unspecified hemorrhoid type [facility] Diagnosis Attention deficit hyperactivity disorder, [...] and respiratory abnormality 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[facility]/HCC)- Primary 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), predominantly inattentive type (CMS/HCC) Bipolar disorder, in partial remission, most recent episode manic (CMS/HCC) Prediabetes Other abnormal glucose Anxiety- Primary Anxiety state, unspecified Generalized idiopathic epilepsy and epileptic syndromes, not intractable, 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) 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 PTSD (post-traumatic stress disorder) ([facility]/HCC) Posttraumatic stress disorder 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[facility]/HCC)- Primary Agoraphobia with panic disorder Anxiety Anxiety [...] with panic disorder [facility] Diagnosis Pelvic floor dysfunction- Primary Pelvic muscle wasting Chronic constipation Unspecified constipation Gastroparesis [facility] Diagnosis Attention deficit hyperactivity disorder, [...] of status migrainosus documented in this encounter [facility]* Diagnosis Muscle spasm- Primary Spasm of muscle Pelvic floor dysfunction Pelvic muscle wasting Chronic constipation Unspecified constipation [facility] Diagnosis Pelvic floor dysfunction Pelvic muscle wasting Chronic constipation Unspecified constipation [facility] Diagnosis Pelvic floor dysfunction Pelvic muscle wasting Chronic constipation Unspecified constipation [facility] Diagnosis Pelvic floor dysfunction Pelvic muscle wasting Chronic constipation Unspecified constipation [facility] Diagnosis Attention deficit hyperactivity disorder, [...] chronic pain documented in this encounter [facility] [...] Primary Laceration of right knee, subsequent encounter Sprain of calcaneofibular ligament of right ankle, initial encounter- Primary Right foot pain Pain in soft tissues of limb Other synovitis and tenosynovitis, right ankle and foot Other enthesopathy of right foot and ankle documented in this encounter [facility] [...] Primary Laceration of right knee, subsequent encounter Nonalcoholic steatohepatitis (ENGLISH)- Primary PTSD (post-traumatic stress disorder) Posttraumatic stress disorder Major depressive disorder, recurrent, moderate (HCC) Major depressive disorder, recurrent episode, moderate Lumbar radiculopathy Thoracic or lumbosacral neuritis or radiculitis, unspecified Weight gain Other symptoms concerning nutrition, metabolism, and development Borderline diabetes Morbid (severe) obesity due to excess calories ([facility]) Impaired fasting glucose Obesity, class 2 Body mass index (BMI) 36.0-36.9, adult documented in this encounter [facility]* [...] Primary Laceration of right knee, subsequent encounter Nonalcoholic steatohepatitis (ENGLISH)- Primary PTSD (post-traumatic stress disorder) Posttraumatic stress disorder Major depressive disorder, recurrent, moderate (HCC) Major depressive disorder, recurrent episode, moderate Lumbar radiculopathy Thoracic or lumbosacral neuritis or radiculitis, unspecified Weight gain Other symptoms concerning nutrition, metabolism, and development Borderline diabetes Morbid (severe) obesity due to excess calories ([facility]-HCC) Impaired fasting glucose Obesity, class 2 Body mass index (BMI) 36.0-36.9, adult Major depressive disorder, recurrent, moderate (HCC) Major depressive disorder, recurrent episode, moderate documented [facility] [...] Primary Laceration of right knee, subsequent encounter Nonalcoholic steatohepatitis (ENGLISH)- Primary PTSD (post-traumatic stress disorder) Posttraumatic stress disorder Major depressive disorder, recurrent, moderate (HCC) Major depressive disorder, recurrent episode, moderate Lumbar radiculopathy Thoracic or lumbosacral neuritis or radiculitis, unspecified Weight gain Other symptoms concerning nutrition, metabolism, and development Borderline diabetes Morbid (severe) obesity due to excess calories ([facility]-HCC) Impaired fasting glucose Obesity, class 2 Body mass index (BMI) 36.0-36.9, adult Lumbar radiculopathy- Primary Thoracic or lumbosacral neuritis [...] Primary Laceration of right knee, subsequent encounter Nonalcoholic steatohepatitis (ENGLISH)- Primary PTSD (post-traumatic stress disorder) Posttraumatic stress disorder Major depressive disorder, recurrent, moderate (HCC) Major depressive disorder, recurrent episode, moderate Lumbar radiculopathy Thoracic or lumbosacral neuritis or radiculitis, unspecified Weight gain Other symptoms concerning nutrition, metabolism, and development Borderline diabetes Morbid (severe) obesity due to excess calories ([facility]-HCC) Impaired fasting glucose Obesity, class 2 Body mass index (BMI) 36.0-36.9, adult Other synovitis and tenosynovitis, right ankle and foot- Primary Right foot pain Pain in soft tissues of limb Other enthesopathy of right foot and ankle documented in this encounter [facility]* Diagnosis Chronic pelvic pain in female- Primary [...] female genital organs documented in this encounter [facility] general Narrative - Reported* Type Description Date Medical History Anxiety Medical History Depression Medical History Diverticulosis Medical History bipolar Surgical History C section Surgical History hysterectomy Hospitalization History see above Hospitalization History diverticulitis 01/24/18 Hospitalization History NONE ON THE LAST YEAR [facility] Other Hospital course Narrative No data available for this section [facility] No data available for this section [facility] No data available for this [facility] Outpatient Procedure (Routine) - Authorized Specialty Diagnoses / Procedures Referred By Norma Referred To Contact [facility] Diagnoses Bilious vomiting with nausea Right sided abdominal pain Procedures EGD DIAGNOSTIC ESOPHAGOGASTRODUODENOSC [place] [address] [place] [address] [facility] [place] [address] [place] [address] Referral ID Status Reason Start Date Expiration Date Visits Requested Visits Authorized [id number] Authorized Auto-Generat ed Referral 05/27/2022 05/27/2023 1 1 * MRI/CT (Routine) - Authorized Specialty Diagnoses / Procedures Referred By Norma kennedy Referred To Contact CT IMAGING Diagnoses Bilious vomiting with nausea Right sided abdominal pain Nausea Procedures CT ABD/PEL WO IVCON CT ABD & P[place] [address] [place] [address] Ct Imaging Referral ID Status Reason Start Date Expiration Date Visits Requested Visits Authorized [id number] Authorized Auto-Generat ed Referral 05/27/2022 06/26/2023 1 1 [facility] for referral (narrative)* Diagnostic Procedure Only (Routine) - Authorized Specialty Diagnoses / Procedures Referred By Norma t Referred To Contact [facility] Diagnoses Liver lesion Procedures US ABD RT UPPER QUADRANT US ABDOMINAL REAL [place] W/[place] [address] [place] [address] [facility] Referral ID Status Reason Start Date Expiration Date Visits Requested Visits Authorized [id number] Authorized Auto-Generat ed Referral 06/14/2022 07/14/2023 1 1 [facility] for referral (narrative)* Diagnostic Procedure Only (Routine) - Closed Specialty Diagnoses / Procedures Referred By Contac t Referred To Contact [facility] Diagnoses Liver lesion Procedures US ABD RT UPPER QUADRANT US ABDOMINAL REAL [place] W/[place] [address] [place] [address] [place] [address] Referral ID Status Reason Start Date Expiration Date V isits Requested Visits Authorized [id number] Closed Auto-Generate d Referral 06/14/2022 07/14/2023 1 1 [facility] for referral (narrative)* Diagnostic Procedure Only (Routine) - Closed Specialty Diagnoses / Procedures Referred By Contac t Referred To Contact [facility] Diagnoses Elevated LFTs Procedures US ABD RT UPPER QUADRANT US ABDOMINAL REAL [place] W/[place] [address] [place] [address] [place] [address] Referral ID Status Reason Start Date Expiration Date V isits Requested Visits Authorized [id number] Closed Auto-Generate d Referral 11/24/2021 12/24/2022 1 1 [facility] for referral (narrative)* Diagnostic Procedure Only (Routine) - Closed Specialty Diagnoses / Procedures Referred By Contac t Referred To Contact [facility] Diagnoses Nausea Procedures NM GASTRIC EMPTYING SOLID [place] [address] [place] [address] [facility] [address] [place] [address] Referral ID Status Reason Start Date Expiration Date V isits Requested Visits Authorized [id number] Closed Auto-Generate d Referral 08/31/2022 09/30/2023 1 1 [facility] for referral (narrative)* Outpatient Procedure (Routine) - Authorized Specialty Diagnoses / Procedures Referred By Contac t Referred To Contact [facility] Diagnoses Gastroparesis Procedures ECG COMPLETE ECG ROUTINE ECG W/LEAST 12 LDS W/I&R Solo Mora MD [address] [place] [address] [address] Referral ID Status Reason Start Date Expiration Date Visits Requested Visits Authorized [id number] Authorized Auto-Generat ed Referral 11/02/2023 11/01/2024 1 1 [facility] for referral (narrative)* Outpatient Procedure (Routine) - Authorized Specialty Diagnoses / Procedures [facility]erred [facility] Referred To Contact [facility] Diagnoses Syncope and collapse Procedures ECG COMPLETE ECG ROUTINE ECG W/LEAST 12 LDS W/I&R Solo Mora MD [address] [place] [address] [address] Referral ID Status Reason Start Date Expiration Date Visits Requested Visits Authorized [id number] Authorized Auto-Generat ed Referral 12/19/2023 12/18/2024 1 1 [facility] for referral (narrative)* Diagnostic Procedure Only (Routine) - Closed Specialty Diagnoses / Procedures Referred By [facility] Referred To Contact [facility] Diagnoses Nausea Procedures NM GASTRIC EMPTYING SOLID [place] [address] [place] [address] [facility] [address] [place] [address] Referral ID Status Reason Start Date Expiration Date V isits Requested Visits Authorized [id number] Closed Auto-Generate d Referral 08/31/2022 09/30/2023 1 1 * Outpatient Procedure (Routine) - Closed Specialty Diagnoses / Procedures Referred By Contac t Referred To [facility] [place] Diagnoses PUD (peptic ulcer disease) Procedures EGD DIAGNOSTIC ESOPHAGOGASTRODUODENOSC OPY [place] [address] [place] [address] [address] Referral ID Status Reason Start Date Expiration Date V isits Requested Visits Authorized [id number] Closed Auto-Generate d Referral 06/30/2022 07/01/2023 1 1 [facility] for referral (narrative)* Outpatient Procedure (Routine) - Closed Specialty Diagnoses / Procedures Referred By [facility]musa t Referred To [facility] Diagnoses PUD (peptic ulcer disease) Procedures EGD DIAGNOSTIC ESOPHAGOGASTRODUODENOSC OPY [place] [address] [place] [address] [address] Referral ID Status Reason Start Date Expiration Date V isits Requested Visits Authorized [id number] Closed Auto-Generate d Referral 06/30/2022 07/01/2023 1 1 * Outpatient Procedure (Routine) - Closed Specialty Diagnoses / Procedures Referred By Contac t Referred To [facility] Diagnoses Bilious vomiting with nausea Right sided abdominal pain Procedures EGD DIAGNOSTIC ESOPHAGOGASTRODUODENOSC OPY [place] [address] [place] [address] [address] Referral ID Status Reason Start Date Expiration Date V isits Requested Visits Authorized [id number] Closed Auto-Generate d Referral 05/27/2022 05/27/2023 1 1 [facility] for referral (narrative)* Outpatient Procedure (Routine) - Authorized Specialty Diagnoses / Procedures Referred By Contac t Referred To Contact [facility] [place] Diagnoses BRBPR (bright red blood per rectum) Procedures COLONOSCOPY DIAGNOSTIC COLONOSCOPY FLX DX W/COLLJ SPEC WHEN PFRMD Iliana Mercado PA-C [id number] [place] [address] [address] Referral ID Status Reason Start Date Expiration Date Visits Requested Visits Authorized [id number] Authorized Auto-Generat ed Referral 04/26/2024 04/26/2025 1 1 * Outpatient Procedure (Routine) - Authorized Specialty Diagnoses / Procedures Referred By Contac t Referred To Contact [facility] Diagnoses Elevated LFTs Procedures DDI VIBRATION CONTROLLED TRANSIENT ELASTOGRAPHY (VCTE) LIVER ELASTOGRAPHY W/O IMAG W/I&R Iliana Mercado PA-C [id number] [place] [address] [place] [id number] Referral ID Status Reason Start Date Expiration Date Visits Requested Visits Authorized [id number] Authorized Auto-Generat ed Referral 04/26/2024 04/26/2025 1 1 [facility] for referral (narrative)* Outpatient Procedure (Routine) - Pending Review Specialty Diagnoses / Procedures Referred By Contac t Referred To Contact [facility] [place] Diagnoses ENGLISH (nonalcoholic steatohepatitis) Procedures LIVER BIOPSY NEEDLE BIOPSY LIVER NEEDLE PERCUTANEOUS Rosario Mcconnell I, MD [address] [place] [address], [place] [address] [facility] [address] [address] Referral ID Status Reason Start Date Expiration Date Visits Requested Visits Authorized [id number] Pending Review Auto-Generat ed Referral 05/14/2024 05/14/2025 1 1 [facility] for referral (narrative)* Outpatient Procedure (Routine) - Closed Specialty Diagnoses / Procedures Referred By Contac t Referred To Contact [facility] Diagnoses BRBPR (bright red blood per rectum) Procedures COLONOSCOPY DIAGNOSTIC COLONOSCOPY FLX DX W/COLLJ SPEC WHEN Iliana Parsons PA-C [id number] [place] [id number] [facility] [place] [id number] Referral ID Status Reason Start Date Expiration Date V isits Requested Visits Authorized [id number] Closed Auto-Generate d Referral 04/26/2024 04/26/2025 1 1 [facility] for visit NarrativePATIENT HERE AT THE REQUEST OF DR. HAGEN FOR ENGLISH & ABNORMAL US. ULTRASOUND AND LABS IN REFERRAL. PATIENT STATES SHE FEELS LETHARGIC & HAS OCCASIONAL [place]AL [place] [facility] Other Reason for visit Narrative* Diagnostic Procedure Only (Routine) - Closed Specialty Diagnoses / Procedures Referred By Contac t Referred To Contact [facility] Diagnoses Liver lesion Procedures US ABD RT UPPER QUADRANT US ABDOMINAL REAL [place] W/[place] [address] [place] [address] [place] [address] Referral ID Status Reason Start Date Expiration Date V isits Requested Visits Authorized [id number] Closed Auto-Generate d Referral 06/14/2022 07/14/2023 1 1 [facility] for visit Narrative* Diagnostic Procedure Only (Routine) - Closed Specialty Diagnoses / Procedures Referred By Contac t Referred To Contact [facility] Diagnoses Elevated LFTs Procedures US ABD RT UPPER QUADRANT US ABDOMINAL REAL TIME W/IMAGE LIMITED [place] Winn [place] [address] [place] [address] [place] [address] Referral ID Status Reason Start Date Expiration Date V isits Requested Visits Authorized [id number] Closed Auto-Generate d Referral 11/24/2021 12/24/2022 1 1 [facility] for visit Narrative* Diagnostic Procedure Only (Routine) - Closed Specialty Diagnoses / Procedures Referred By Contac t Referred To Contact [facility] Diagnoses Nausea Procedures NM GASTRIC EMPTYING SOLID GASTRIC EMPTYING STUDY [place] Winn [place] [address] [place] [address] [facility] [address] [place], [place] [id number] Referral ID Status Reason Start Date Expiration Date V isits Requested Visits Authorized [id number] Closed Auto-Generate d Referral 08/31/2022 09/30/2023 1 1 [facility] for visit Narrative* Outpatient Procedure (Routine) - Closed Specialty Diagnoses / Procedures [facility] Referred [facility] Diagnoses PUD (peptic ulcer disease) Procedures EGD DIAGNOSTIC ESOPHAGOGASTRODUODENOSC OPY TRANSORAL DIAGNOSTIC [place] Winn [place] [address] [place] [address] [facility] [place] [address] [place] [address] Referral ID Status Reason Start Date Expiration Date V isits Requested Visits Authorized [id number] Closed Auto-Generate d Referral 06/30/2022 07/01/2023 1 1 [facility] for visit Narrative* Outpatient Procedure (Routine) - Closed Specialty Diagnoses / Procedures [facility] Referred To [facility] Diagnoses Bilious vomiting with nausea Right sided abdominal pain Procedures EGD DIAGNOSTIC ESOPHAGOGASTRODUODENOSC OPY [place] [address] [place] [address] [facility] [place] [address] [place] [address] Referral ID Status Reason Start Date Expiration Date V isits Requested Visits Authorized [id number] Closed Auto-Generate d Referral 05/27/2022 05/27/2023 1 1 [facility] - Outpatient (Routine) - Authorized Specialty Diagnoses / Procedures Referred By Norma t Referred To Contact Physical Therapy Diagnoses Cervical radiculopathy Procedures IN OFFICE/OUTPATIENT [facility] 60 MINUTES Giovani Hagen MD [address] [address] Phone: tel: fax: Zhen Burgess, PT [address] [address] Phone: tel: fax: Referral ID Status Reason Start Date Expiration Date Visits Requested Visits Authorized [id number] Authorized Specialty Services Required 01/25/2024 10/21/2024 25 25 [facility] - Outpatient (Routine) - Authorized Specialty Diagnoses / Procedures Referred By Norma t Referred To Contact Physical Therapy Diagnoses Cervical radiculopathy Unspecified injury of right ankle, subsequent encounter Procedures IN OFFICE/OUTPATIENT [facility] 60 MINUTES Giovani Hagen MD [address] [address] Phone: tel: fax: Zhen Burgess, PT [address] [address] Phone: tel: fax: Referral ID Status Reason Start Date Expiration Date Visits Requested Visits Authorized [id number] Authorized Specialty Services Required 01/25/2024 10/21/2024 25 25 [facility]* Outpatient Procedure (Routine) - Closed Specialty Diagnoses / Procedures Referred By Norma t Referred To Contact [facility] Diagnoses Elevated LFTs Procedures DDI VIBRATION CONTROLLED TRANSIENT ELASTOGRAPHY (VCTE) LIVER ELASTOGRAPHY W/O IMAG W/I&R Iliana Mercado PA-C [address] [place] [address] [address] Referral ID Status Reason Start Date Expiration Date V isits Requested Visits Authorized [id number] Closed Auto-Generate d Referral 04/26/2024 04/26/2025 1 1 [facility] for visit Narrative* Outpatient Procedure (Routine) - Closed Specialty Diagnoses / Procedures Referred By Contac t Referred To Contact [facility] Diagnoses BRBPR (bright red blood per rectum) Procedures COLONOSCOPY DIAGNOSTIC COLONOSCOPY FLX DX W/COLLJ SPEC WHEN PFRMD Iliana Mercado PA-C [address] [place] [address] [address] Referral ID Status Reason Start Date Expiration Date V isits Requested Visits Authorized [id number] Closed Auto-Generate d Referral 04/26/2024 04/26/2025 1 1 [facility] for visit Narrative* Diagnostic Procedure Only (Routine) - Closed Specialty Diagnoses / Procedures Referred By Contac t Referred To Contact [facility] Diagnoses Other specified dyspareunia Pelvic pain in female Procedures PELVIC US WHI US PELVIC NONOBSTETRIC REAL-TIME IMAGE COMPLETE Javy Boudreaux MD [address] [address] Phone: tel: fax: [address] [address] Referral ID Status Reason Start Date Expiration Date V isits Requested Visits Authorized [id number] Closed Auto-Generate d Referral 07/10/2024 07/10/2025 1 1 [facility] for visit Narrative* Diagnostic Procedure Only (Routine) - Closed Specialty Diagnoses / Procedures Referred By Contac t Referred To Contact XR IMAGING Diagnoses Chronic idiopathic constipation Procedures XR ABDOMEN 2V ROUTINE SUPINE W UPRIGHT/DECUB/CTL RADIOLOGIC EXAM ABDOMEN 2 VIEWS Iliana Mercado PA-C [address] [place] [address] Phone: tel: fax: [place] [address] Referral ID Status Reason Start Date Expiration Date V isits Requested Visits Authorized [id number] Closed Auto-Generate d Referral 07/09/2024 08/07/2025 1 1 [facility] Diagnostic Procedure Only (Routine) - Authorized Specialty Diagnoses / Procedures Referred By Contac t Referred To Contact XR IMAGING Diagnoses Pelvic floor dysfunction Chronic constipation Procedures XR ABDOMEN 1V SUPINE RADIOLOGIC EXAM ABDOMEN 1 VIEW Mario Harper, [employer] [address] [place] [address] Phone: tel: fax: [place] [address] Referral ID Status Reason Start Date Expiration Date Visits Requested Visits Authorized [id number] Authorized Auto-Generat ed Referral 10/09/2024 11/08/2025 3 3 [facility] Summary Purpose Family History No Family [...] spine wo contrast Giovani Hagen MD [address] [facility] [address] [place] [address] Referral ID Status Reason Start Date Expiration Date V isits Requested Visits Authorized [id number] Pending Review 01/09/2024 07/07/2024 1 1 Specialty Diagnoses / Procedures Referred By Contac t Referred To Contact Diagnoses Attention deficit hyperactivity disorder (ADHD), predominantly inattentive type (CMS/HCC) Giovani Hagen MD [address] [address] Referral ID Status Reason Start Date Expiration Date Visits Re quested Visits Authorized [id number] Closed 1 1 Specialty Diagnoses / Procedures Referred By Contac t Referred To Contact Diagnoses Attention deficit hyperactivity disorder (ADHD), predominantly inattentive type (CMS/HCC) Giovani Hagen MD [address] [address] Referral ID Status Reason Start Date Expiration Date V isits Requested Visits Authorized [id number] Pending Review 01/08/2024 07/06/2024 1 1 Specialty Diagnoses / Procedures Referred By Contac t Referred To Contact [facility] [place] Diagnoses Syncope, unspecified syncope type Procedures CARDIOVASCULAR MEDICINE [place] [address] [place] [address] [facility] [address] [address] Referral ID Status Reason Start Date Expiration Date Visits Requested Visits Authorized [id number] Ref Not Required PCP Requested Referral 12/28/2023 12/27/2024 1 1 Specialty Diagnoses / Procedures Referred By Contac t Referred To Contact [facility] [place] Diagnoses Syncope, unspecified syncope type Procedures STRESS ECHO TREADMILL ECHO TTHRC R-T 2D W/WO M-MODE COMPLETE REST&ST Solo Mora MD [address] [place] [address] [address] Referral ID Status Reason Start Date Expiration Date Visits Requested Visits Authorized [id number] Authorized Auto-Generat ed Referral 12/19/2023 12/18/2024 1 1 Specialty Diagnoses / Procedures Referred By Contac t Referred To Contact CT IMAGING Diagnoses Bilious vomiting with nausea Right sided abdominal pain Nausea Procedures CT ABD/PEL WO IVCON CT ABD & PEL[place] [address] [place] [address] [place] [address] Referral ID Status Reason Start Date Expiration Date V isits Requested Visits Authorized [id number] Closed Auto-Generate d Referral 05/27/2022 06/26/2023 1 1 Additional Source Comments INFORMATION SOURCE (unrecogn ized section and content) DATE CREATED AUTHOR 11/09/2018 [facility] DATE CREATED AUTHOR AUTHOR'S ORGANIZ ATION 08/23/2021 [facility] Special[facility] DATE CREATED AUTHOR AUTHOR'S ORGANIZ ATION 07/17/2022 [facility] DATE CREATED AUTHOR AUTHOR'S ORGANIZ ATION 03/22/2023 [facility] DATE CREATED AUTHOR AUTHOR'S ORGANIZ ATION 03/28/2023 [facility] DATE CREATED AUTHOR AUTHOR'S ORGANIZ ATION 04/07/2024 [facility] DATE CREATED AUTHOR AUTHOR'S ORGANIZ ATION 04/12/2024 [facility] DATE CREATED AUTHOR AUTHOR'S ORGANIZ ATION 09/26/2024 [facility] DATE CREATED AUTHOR AUTHOR'S ORGANIZ ATION 10/31/2024 [facility] DATE CREATED AUTHOR AUTHOR'S ORGANIZ ATION 12/31/2024 [facility] DATE CREATED AUTHOR AUTHOR'S ORGANIZ ATION 01/01/2025 [facility] d[facility] Specialists EPIC DATE CREATED AUTHOR AUTHOR'S ORGANIZ ATION 01/03/2025 [facility] Care Teams (unrecognized sec tion and content) Team Status: Active Member Role Status Dates Giovani Hagen MD Primary Care Provider Active Team Status: Inactive Member Role Status Dates Erwin Hylton MD Attending Provider Active Giovani Hagen MD Primary Care Provider Active Care Services Manager Relationship Specialty Start Date End Date Hieu Giovani Rust 112 [facility] [address] [place] [address] PCP - General Family Medicine 03/27/19 Care Services Manager Relationship Specialty Start Date End Date Hieu Giovani Rust 112 [facility] [address] [place] [address] PCP - General Family Medicine 03/27/19 Care Services Manager Relationship Specialty Start Date End Date [place], Rugen Mabalay [address] [place] [address] [place] [address] PCP - General Family Medicine 03/27/19 Care Services Manager Relationship Specialty Start Date End Date HieuGiovani mcclellan Mabalay [address] [place] [address] [place] [address] PCP - General Family Medicine 03/27/19 Care Services Manager Relationship Specialty Start Date End Date MiamitownGiovani mcclellan Mabalay [address] [place] [address] [place] [address] PCP - General Family Medicine 03/27/19 Care Services Manager Relationship Specialty Start Date End Date Giovani Hagen Mabalay [address] [place] [address] [place] [address] PCP - General Family Medicine 03/27/19 Care Services Manager Relationship Specialty Start Date End Date Giovani Hagen Mabalay [address] [place] [address] [place] [address] PCP - General Family Medicine 03/27/19 Care Services Manager Relationship Specialty Start Date End Date Giovani Hagen Mabalay [address] [place] [address] [place] [address] PCP - General Family Medicine 03/27/19 Care Services Manager Relationship Specialty Start Date End Date HieuGiovani mcclellan Mabalay [address] [place] [address] [place] [address] PCP - General Family Medicine 03/27/19 Care Services Manager Relationship Specialty Start Date End Date [place]ownGiovani Mabalay [address] [place] [address] [place] [address] PCP - General Family Medicine 03/27/19 Care Services Manager Relationship Specialty Start Date End Date HieuGiovani Mabalay [address] [place] [address] [place] [address] PCP - General Family Medicine 03/27/19 Care Services Manager Relationship Specialty Start Date End Date Giovani Hagen [address] [place] [address] [place] [address] PCP - General Family Medicine 03/27/19 Care Services Manager Relationship Specialty Start Date End Date Giovani Hagen [address] [place] [address] [place] [address] PCP - General Family Medicine 03/27/19 Care Services Manager Relationship Specialty Start Date End Date Giovani Hagen [address] [place] [address] [place] [address] PCP - General [facility] Medicine 03/27/19 Care Services Manager Relationship Specialty Start Date End Date Giovani Hagen MD [address] [facility] [address] [place] [address] PCP - General [facility] Medicine 03/27/19 Care Services Manager Relationship Specialty Start Date End Date Giovani Hagen MD [address] [place] [address] [place] [address] PCP - General [facility] Medicine 03/27/19 Care Services Manager Relationship Specialty Start Date End Date Giovani Hagen MD [address] [place] [address] [place] [address] PCP - General Family Medicine 03/27/19 Care Services Manager Relationship Specialty Start Date End Date Giovani Hagen MD [address] [place] [address] [place] [address] PCP - General [facility] Medicine 03/27/19 Care Services Manager Relationship Specialty Start Date End Date Giovani Hagen MD [address] [place] [address] [place] [address] PCP - General Family Medicine 03/27/19 Care Services Manager Relationship Specialty Start Date End Date Giovani Hagen MD [address] [place] [address] [place] [address] PCP - General Family Medicine 03/27/19 Care Services Manager Relationship Specialty Start Date End Date Giovani Hagen MD [address] [place] [address] [place] [address] PCP - General Family Medicine 03/27/19 Care Services Manager Relationship Specialty Start Date End Date Giovani Hagen MD [address] [place] [address] [place] [address] PCP - General Family Medicine 03/27/19 Care Services Manager Relationship Specialty Start Date End Date Goivani Hagen MD [address] [place] [address] [place] [address] PCP - General Family Medicine 03/27/19 Care Services Manager Relationship Specialty Start Date End Date Giovani Hagen MD [address] [place] [address] [place] [address] PCP - General Family Medicine 03/27/19 Care Services Manager Relationship Specialty Start Date End Date Giovani Hagen MD [address] [place] [address] [place] [address] PCP - General Family Medicine 03/27/19 Care Services Manager Relationship Specialty Start Date End Date Giovani Hagen MD [address] [place] [address] [place] [address] PCP - General Family Medicine 03/27/19 Care Services Manager Relationship Specialty Start Date End Date Giovani Hagen MD [address] [place] [address] [place] [address] PCP - General Family Medicine 03/27/19 Care Services Manager Relationship Specialty Start Date End Date Giovani Hagen MD [address] [place] [address] [place] [address] PCP - Medical [employer] 10/22/18 04/23/99 Giovani Hagen MD [address] [place] [address] [place] [address] PCP - General Family Medicine 08/30/22 Care Services Manager Relationship Specialty Start Date End Date Giovani Hagen MD [address] [place] [address] [place] [address] PCP - Medical [employer] 10/22/18 04/23/99 Giovani Hagen MD [address] [place] [address] [place] [address] PCP - General Family Medicine 08/30/22 Care Services Manager Relationship Specialty Start Date End Date Giovani Hagen MD [address] [place] [address] [place] [address] PCP - Medical [employer] 10/22/18 04/23/99 Giovani Hagen MD [address] [place] [address] [place] [address] PCP - General Family Medicine 08/30/22 Care Services Manager Relationship Specialty Start Date End Date Giovani Hagen MD [address] [place] [address] [place] [address] PCP - Medical [employer] 10/22/18 04/23/99 Giovani Hagen MD [address] [place] [address] [place] [address] PCP - General Family Medicine 08/30/22 Care Services Manager Relationship Specialty Start Date End Date Giovani Hagen MD [address] [place] [address] [place] [address] PCP - Medical [employer] 10/22/18 04/23/99 Giovani Hagen MD [address] [place] [address] [place] [address] PCP - General Family Medicine 08/30/22 Care Services Manager Relationship Specialty Start Date End Date Giovani Hagen MD [address] [place] [address] [place] [address] PCP - Medical [employer] 10/22/18 04/23/99 Giovani Hagen MD [address] [place] [address] [place] [address] PCP - General Family Medicine 08/30/22 Care Services Manager Relationship Specialty Start Date End Date Giovani Hagen MD [address] [place] [address] [place] [address] PCP - Medical [employer] 10/22/18 04/23/99 Giovani Hagen MD [address] [place] [address] [place] [address] PCP - General Family Medicine 08/30/22 Care Services Manager Relationship Specialty Start Date End Date Giovani Hagen MD [address] [place] [address] [place] [address] PCP - Medical [employer] 10/22/18 04/23/99 Giovani Hagen MD [address] [place] [address] [place] [address] PCP - General Family Medicine 08/30/22 Care Services Manager Relationship Specialty Start Date End Date Giovani Hagen MD [address] [place] [address] [place] [address] PCP - Medical [employer] 10/22/18 04/23/99 Giovani Hagen MD [address] [place] [address] [place] [address] PCP - General Family Medicine 08/30/22 Care Services Manager Relationship Specialty Start Date End Date Giovani Hagen MD [address] [place] [address] [place] [address] PCP - Medical [employer] 10/22/18 04/23/99 Giovani Hagen MD [address] [place] [address] [place] [address] PCP - General Family Medicine 08/30/22 Care Services Manager Relationship Specialty Start Date End Date Giovani Hagen MD [address] [place] [address] [place] [address] PCP - Medical [employer] 10/22/18 04/23/99 Giovani Hagen MD [address] [place] [address] [place] [address] PCP - General Family Medicine 08/30/22 Care Services Manager Relationship Specialty Start Date End Date Giovani Hagen MD [address] [place] [address] [place] [address] PCP - Medical [employer] 10/22/18 04/23/99 Giovani Hagen MD [address] [place] [address] [place] [address] PCP - General Family Medicine 08/30/22 Care Services Manager Relationship Specialty Start Date End Date Giovani Hagen MD [address] [place] [address] [place] [address] PCP - Medical [employer] 10/22/18 04/23/99 Giovani Hagen MD [address] [place] [address] [place] [address] PCP - General Family Medicine 08/30/22 Care Services Manager Relationship Specialty Start Date End Date Giovani Hagen MD [address] [place] [address] [place] [address] PCP - Medical [employer] 10/22/18 04/23/99 Giovani Hagen MD [address] [place] [address] [place] [address] PCP - General Family Medicine 08/30/22 Care Services Manager Relationship Specialty Start Date End Date Giovani Hagen MD [address] [place] [address] [place] [address] PCP - Medical [employer] 10/22/18 04/23/99 Giovani Hagen MD [address] [place] [address] [place] [address] PCP - General Family Medicine 08/30/22 Care Services Manager Relationship Specialty Start Date End Date Giovani Hagen MD [address] [place] [address] [place] [address] PCP - Medical [employer] 10/22/18 04/23/99 Giovani Hagen MD [address] [place] [address] [place] [address] PCP - General Family Medicine 08/30/22 Care Services Manager Relationship Specialty Start Date End Date Giovani Hagen MD [address] [place] [address] [place] [address] PCP - Medical [employer] 10/22/18 04/23/99 Giovani Hagen MD [address] [place] [address] [place] [address] PCP - General Family Medicine 08/30/22 Care Services Manager Relationship Specialty Start Date End Date Giovani Hagen MD [address] [place] [address] [place] [address] PCP - Medical [employer] 10/22/18 04/23/99 Giovani Hagen MD [address] [place] [address] [place] [address] PCP - General Family Medicine 08/30/22 Care Services Manager Relationship Specialty Start Date End Date Giovani Hagen MD [address] [place] [address] [place] [address] PCP - Medical [employer] 10/22/18 04/23/99 Giovani Hagen MD [address] [place] [address] [place] [address] PCP - General Family Medicine 08/30/22 Care Services Manager Relationship Specialty Start Date End Date Giovani Hagen MD [address] [place] [address] [place] [address] PCP - Medical [employer] 10/22/18 04/23/99 Giovani Hagen MD [address] [place] [address] [place] [address] PCP - General Family Medicine 08/30/22 Care Services Manager Relationship Specialty Start Date End Date Giovani Hagen MD [address] [place] [address] [place] [address] PCP - Medical [employer] 10/22/18 04/23/99 Giovani Hagen MD [address] [place] [address] [place] [address] PCP - General Family Medicine 08/30/22 Care Services Manager Relationship Specialty Start Date End Date Giovani Hagen MD [address] [place] [address] [place] [address] PCP - Medical [employer] 10/22/18 04/23/99 Giovani Hagen MD [address] [place] [address] [place] [address] PCP - General Family Medicine 08/30/22 Care Services Manager Relationship Specialty Start Date End Date Giovani Hagen MD [address] [place] [address] [place] [address] PCP - Medical [employer] 10/22/18 04/23/99 Giovani Hagen MD [address] [place] [address] [place] [address] PCP - General Family Medicine 08/30/22 Care Services Manager Relationship Specialty Start Date End Date Giovani Hagen MD [address] [place] [address] [place] [address] PCP - Medical [employer] 10/22/18 04/23/99 Givoani Hagen MD [address] [place] [address] [place] [address] PCP - General Family Medicine 08/30/22 Care Services Manager Relationship Specialty Start Date End Date Giovani Hagen MD [address] [place] [address] [place] [address] PCP - General Family Medicine 03/27/19 Care Services Manager Relationship Specialty Start Date End Date Giovani Hagen MD [address] [place] [address] [place] [address] PCP - [facility] 10/22/18 04/23/99 Giovani Hagen MD [address] [place] [address] [place] [address] PCP - General Family Medicine 08/30/22 Care Services Manager Relationship Specialty Start Date End Date Giovani Hagen MD [address] [place] [address] [place] [address] PCP - General Family Medicine 03/27/19 Deena Lyn, ISABEL [address] [place] [address] [place] [address] Referring Family Medicine 04/03/24 Care Services Manager Relationship Specialty Start Date End Date Giovani Hagen MD [address] [place] [address] [place] [address] PCP - General Family Medicine 03/27/19 Deena Lyn, ISABEL [address] [place] [address] [place] [address] Referring Family Medicine 04/03/24 Care Services Manager Relationship Specialty Start Date End Date Giovani Hagen MD [address] [place] [address] [place] [address] PCP - Medical [employer] 10/22/18 04/23/99 Giovani Hagen MD [address] [place] [address] [place] [address] PCP - General Family Medicine 08/30/22 Care Services Manager Relationship Specialty Start Date End Date Giovani Hagen MD [address] [place] [address] [place] [address] PCP - Medical [employer] 10/22/18 04/23/99 Giovani Hagen MD [address] [place] [address] [place] [address] PCP - General Family Medicine 08/30/22 Care Services Manager Relationship Specialty Start Date End Date Giovani Hagen MD [address] [place] [address] [place] [address] PCP - Medical [employer] 10/22/18 04/23/99 Giovani Hagen MD [address] [place] [address] [place] [address] PCP - General Family Medicine 08/30/22 Care Services Manager Relationship Specialty Start Date End Date Giovani Hagen MD [address] [place] [address] [place] [address] PCP - Medical [employer] 10/22/18 04/23/99 Giovani Hagen MD [address] [place] [address] [place] [address] PCP - General Family Medicine 08/30/22 Care Services Manager Relationship Specialty Start Date End Date Giovani Hagen MD [address] [place] [address] [place] [address] PCP - Medical [employer] 10/22/18 04/23/99 Giovani Hagen MD [address] [place] [address] [place] [address] PCP - General Family Medicine 08/30/22 Care Services Manager Relationship Specialty Start Date End Date Giovani Hagen MD [address] [place] [address] [place] [address] PCP - Medical [employer] 10/22/18 04/23/99 Giovani Hagen MD [address] [place] [address] [place] [address] PCP - General Family Medicine 08/30/22 Care Services Manager Relationship Specialty Start Date End Date Giovani Hagen MD [address] [place] [address] [place] [address] PCP - Medical [employer] 10/22/18 04/23/99 Giovani Hagen MD [address] [place] [address] [place] [address] PCP - General Family Medicine 08/30/22 Care Services Manager Relationship Specialty Start Date End Date Giovani Hagen MD [address] [place] [address] [place] [address] PCP - General Family Medicine 03/27/19 Deena Lyn CNP [address] [place] [address] [place] [address] Referring Family Medicine 04/03/24 Care Services Manager Relationship Specialty Start Date End Date Giovani Hagen MD [address] [place] [address] [place] [address] PCP - Medical [employer] 10/22/18 04/23/99 Giovani Hagen MD [address] [place] [address] [place] [address] PCP - General Family Medicine 08/30/22 Care Services Manager Relationship Specialty Start Date End Date Giovani Hagen MD [address] [place] [address] [place] [address] PCP - Medical [employer] 10/22/18 04/23/99 Giovani Hagen MD [address] [place] [address] [place] [address] PCP - General Family Medicine 08/30/22 Care Services Manager Relationship Specialty Start Date End Date Giovani Hagen MD [address] [place] [address] [place] [address] PCP - Medical [employer] 10/22/18 04/23/99 Giovani Hagen MD [address] [place] [address] [place] [address] PCP - General Family Medicine 08/30/22 Care Services Manager Relationship Specialty Start Date End Date Giovani Hagen MD [address] [place] [address] [place] [address] PCP - General Family Medicine 03/27/19 Deena Lyn, ISABEL [address] [place] [address] [place] [address] Referring Family Medicine 04/03/24 Care Services Manager Relationship Specialty Start Date End Date Giovani Hagen MD [address] [place] [address] [place] [address] PCP - General Family Medicine 03/27/19 Deena Lyn, ISABEL [address] [place] [address] [place] [address] Referring Family Medicine 04/03/24 Care Services Manager Relationship Specialty Start Date End Date Giovani Hagen MD [address] [place] [address] PCP - General Family Medicine 03/27/19 Deena Lyn CNP [address] [place] [address] Referring Family Medicine 04/03/24 Care Services Manager Relationship Specialty Start Date End Date Giovani Hagen MD [address] [place] [address] PCP - [facility] [employer] 10/22/18 04/23/99 Giovani Hagen MD [address] [place] [address] PCP - General Family Medicine 08/30/22 Care Services Manager Relationship Specialty Start Date End Date Giovani Hagen MD [address] [place] [address] PCP - [facility] [employer] 10/22/18 04/23/99 Giovani Hagen MD [address] [place] [address] PCP - General Family Medicine 08/30/22 Care Services Manager Relationship Specialty Start Date End Date Giovani Hagen MD [address] [place] [address] PCP - General Family Medicine 03/27/19 Deena Lyn, [employer] [address] [place] [address] Referring Family Medicine 04/03/24 Care Services Manager Relationship Specialty Start Date End Date Giovani Hagen MD [address] [place] [address] PCP - General Family Medicine 03/27/19 Deena Lyn, [employer] [address] [place] [address] Referring Family Medicine 04/03/24 Care Services Manager Relationship Specialty Start Date End Date Giovani Hagen MD [address] [facility] [address] [place] [address] PCP - Medical [employer] 10/22/18 04/23/99 Giovani Hagen MD [address] [facility] [address] [place] [address] PCP - General Family Medicine 08/30/22 Care Services Manager Relationship Specialty Start Date End Date Giovani Hagen MD [address] [facility] [address] [place] [address] PCP - Medical [employer] 10/22/18 04/23/99 Giovani Hagen MD [address] [facility] [address] [place] [address] PCP - General Family Medicine 08/30/22 Care Services Manager Relationship Specialty Start Date End Date Giovani Hagen MD [address] [facility] [address] [place] [address] PCP - General Family Medicine 03/27/19 Deena Lyn CNP [address] [place] [address] Referring Family Medicine 04/03/24 Care Services Manager Relationship Specialty Start Date End Date Giovani Hagen MD [address] [place] [address] PCP - Medical [employer] 10/22/18 04/23/99 Giovani Hagen MD [address] [place] [address] PCP - General Family Medicine 08/30/22 Care Services Manager Relationship Specialty Start Date End Date Giovani Hagen MD [address] [place] [address] PCP - [facility] 10/22/18 04/23/99 Giovani Hagen MD [address] [place] [address] PCP - General Family Medicine 08/30/22 Care Services Manager Relationship Specialty Start Date End Date Giovani Hagen MD [address] [place] [address] PCP - General Family Medicine 03/27/19 Deena Lyn CNP [address] [place] [address] Referring Family Medicine 04/03/24 Care Services Manager Relationship Specialty Start Date End Date Giovani Hagen MD [address] [place] [address] PCP - General Family Medicine 03/27/19 Deena Lyn CNP [address] [place] [address] [facility] Family Medicine 04/03/24 Care Services Manager Relationship Specialty Start Date End Date Giovani Hagen MD [address] [place] [address] PCP - Medical [employer] 10/22/18 04/23/99 Giovani Hagen MD [address] [place] [address] PCP - General Family Medicine 08/30/22 Care Services Manager Relationship Specialty Start Date End Date Giovani Hagen MD [address] [place] [address] PCP - [facility] [employer] 10/22/18 04/23/99 Giovani Hagen MD [address] [place] [address] PCP - General Family Medicine 08/30/22 Care Services Manager Relationship Specialty Start Date End Date Giovani Hagen MD [address] [place] [address] PCP - [facility] [employer] 10/22/18 04/23/99 Giovani Hagen MD [address] [place] [address] PCP - General Family Medicine 08/30/22 Care Services Manager Relationship Specialty Start Date End Date Giovani Hagen MD [address] [place] [address] PCP - [facility] [employer] 10/22/18 04/23/99 Giovani Hagen MD [address] [place] [address] PCP - General Family Medicine 08/30/22 Care Services Manager Relationship Specialty Start Date End Date Giovani Hagen MD [address] [place] [address] PCP - Medical [employer] 10/22/18 04/23/99 Giovani Hagen MD [address] [place] [address] PCP - General Family Medicine 08/30/22 Care Services Manager Relationship Specialty Start Date End Date Giovani Hagen MD [address] [place] [address] PCP - Medical [employer] 10/22/18 04/23/99 Giovani Hagen MD [address] [place] [address] PCP - General Family Medicine 08/30/22 Care Services Manager Relationship Specialty Start Date End Date Giovani Haegn MD [address] [place] [address] PCP - Medical [employer] 10/22/18 04/23/99 Giovani Hagen MD [address] [place] [address] PCP - General Family Medicine 08/30/22 Care Services Manager Relationship Specialty Start Date End Date Giovani Hagen MD [address] [place] [address] PCP - Medical [employer] 10/22/18 04/23/99 Giovani Hagen MD [address] [place] [address] PCP - General Family Medicine 08/30/22 Care Services Manager Relationship Specialty Start Date End Date Giovani Hagen MD [address] [place] [address] PCP - General Family Medicine 03/27/19 Deena Lyn, [employer] [address] [place] [address] Referring Family Medicine 04/03/24 Darwin Starr DO [facility] [place] [address] Referring Technician [employer] 07/02/24 Care Services Manager Relationship Specialty Start Date End Date Giovani Hagen MD [address] [place] [address] PCP - General Family Medicine 03/27/19 Deena Lyn, [employer] [address] [place] [address] Referring Family Medicine 04/03/24 Darwin Starr DO [facility] [place] [address] Referring Technician [employer] 07/02/24 Care Services Manager Relationship Specialty Start Date End Date Giovani Hagen MD [address] [place] [address] PCP - Medical [employer] 10/22/18 04/23/99 Giovani Hagen MD [address] [place] [address] PCP - General Family Medicine 08/30/22 Care Services Manager Relationship Specialty Start Date End Date Giovani Hagen MD [address] [place] [address] PCP - Medical [employer] 10/22/18 04/23/99 Giovani Hagen MD [address] [place] [address] PCP - General Family Medicine 08/30/22 Care Services Manager Relationship Specialty Start Date End Date Giovani Hagen MD [address] [place] [address] PCP - Medical [employer] 10/22/18 04/23/99 Giovani Hagen MD [address] [place] [address] PCP - General Family Medicine 08/30/22 Care Services Manager Relationship Specialty Start Date End Date Giovani Hagen MD [address] [place] [address] PCP - Medical [employer] 10/22/18 04/23/99 Giovani Hagen MD [address] [place] [address] PCP - General Family Medicine 08/30/22 Care Services Manager Relationship Specialty Start Date End Date Giovani Hagen MD [address] [place] [address] PCP - Medical [employer] 10/22/18 04/23/99 Gioavni Hagen MD [address] [place] [address] PCP - General Family Medicine 08/30/22 Team [...] Other Provider Active Start: August 17, 2024 Care Services Manager Relationship Specialty Start Date End Date Giovani Hagen MD [address] [facility] [address] [place] [address] PCP - Medical [employer] 10/22/18 04/23/99 Giovani Hagen MD [address] [facility] [address] [place] [address] PCP - General Family Medicine 08/30/22 Care Services Manager Relationship Specialty Start Date End Date Giovani Hagen MD [address] [facility] [address] [place] [address] PCP - Medical [employer] 10/22/18 04/23/99 Giovani Hagen MD [address] [facility] [address] [place] [address] PCP - General Family Medicine 08/30/22 Care Services Manager Relationship Specialty Start Date End Date Giovani Hagen MD [address] [facility] [address] [place] [address] PCP - General Family Medicine 03/27/19 Deena Lyn CNP [address] [facility] [address] [place] [address] Referring Family Medicine 04/03/24 Darwin Starr DO [address] [place] [address] [place] [address] Referring Technician [employer] 07/02/24 Care Services Manager Relationship Specialty Start Date End Date Giovani Hagen MD [address] [place] [address] PCP - Medical [employer] 10/22/18 04/23/99 Giovani Hagen MD [address] [facility] [address] [place] [address] PCP - General Family Medicine 08/30/22 Care Services Manager Relationship Specialty Start Date End Date Giovani Hagen MD [address] [facility] [address] [place] [address] PCP - Medical [employer] 10/22/18 04/23/99 Giovani Hagen MD [address] [facility] [address] [place] [address] PCP - General Family Medicine 08/30/22 Care Services Manager Relationship Specialty Start Date End Date Giovani Hagen MD [address] [facility] [address] [place] [address] PCP - Medical [employer] 10/22/18 04/23/99 Giovani Hagen MD [address] [facility] [address] [place] [address] PCP - General Family Medicine 08/30/22 Care Services Manager Relationship Specialty Start Date End Date Giovani Hagen MD [address] [facility] [address] [place] [address] PCP - Medical [employer] 10/22/18 04/23/99 Giovani Hagen MD [address] [place] [address] PCP - General Family Medicine 08/30/22 Care Services Manager Relationship Specialty Start Date End Date Giovani Hagen MD [address] [place] [address] PCP - General Family Medicine 03/27/19 Deena Lyn CNP [address] [place] [address] Referring Family Medicine 04/03/24 Darwin Starr DO [address] [place] [address] Dr [place], [place] [id number] Referring Technician [employer] 07/02/24 Care Services Manager Relationship Specialty Start Date End Date Giovani Hagen MD [address] [place] [address] PCP - Medical [employer] 10/22/18 04/23/99 Giovani Hagen MD [address] [place] [address] PCP - General Family Medicine 08/30/22 Care Services Manager Relationship Specialty Start Date End Date Giovani Hagen MD [address] [place] [address] PCP - Medical [employer] 10/22/18 04/23/99 Giovani Hagen MD [address] [place] [address] PCP - General Family Medicine 08/30/22 Care Services Manager Relationship Specialty Start Date End Date Giovani Hagen MD [address] [facility] [address] [place] [address] PCP - General Family Medicine 03/27/19 Deena Lyn CNP [address] [facility] [address] [place] [address] Referring Family Medicine 04/03/24 Darwin Starr DO [address] [place] [address] Dr [place], [place] [id number] Referring Technician [employer] 07/02/24 Care Services Manager Relationship Specialty Start Date End Date Giovani Hagen MD [address] [facility] [address] [place] [address] PCP - Medical [employer] 10/22/18 04/23/99 Giovani Hagen MD [address] [facility] [address] [place] [address] PCP - General Family Medicine 08/30/22 Care Services Manager Relationship Specialty Start Date End Date Giovani Hagen MD [address] [facility] [address] [place] [address] PCP - Medical [employer] 10/22/18 04/23/99 Giovani Hagen MD [address] [facility] [address] [place] [address] PCP - General Family Medicine 08/30/22 Care Services Manager Relationship Specialty Start Date End Date Giovani Hagen MD [address] [facility] [address] [place] [address] PCP - Medical [employer] 10/22/18 04/23/99 Giovani Hagen MD [address] [place] [address] PCP - General Family Medicine 08/30/22 Care Services Manager Relationship Specialty Start Date End Date Giovani Hagen MD [address] [place] [address] PCP - General Family Medicine 03/27/19 Deena Lyn, [employer] [address] [place] [address] Referring Family Medicine 04/03/24 Darwin Starr DO [address] [place] [address] [place] [address] Referring Technician [employer] 07/02/24 Care Services Manager Relationship Specialty Start Date End Date Giovani Hagen MD [address] [place] [address] PCP - Medical [employer] 10/22/18 04/23/99 Giovani Hagen MD [address] [place] [address] PCP - General Family Medicine 08/30/22 Care Services Manager Relationship Specialty Start Date End Date Giovani Hagen MD [address] [place] [address] PCP - Medical [employer] 10/22/18 04/23/99 Giovani Hagen MD [address] [place] [address] PCP - General Family Medicine 08/30/22 Care Services Manager Relationship Specialty Start Date End Date Giovani Hagen MD [address] [place] [address] PCP - General Family Medicine 03/27/19 Deena Lyn, ISABEL [address] [place] [address] Referring Family Medicine 04/03/24 Darwin Starr DO [address] [place] [address] [place] [address] Referring Technician [employer] 07/02/24 Care Services Manager Relationship Specialty Start Date End Date Giovani Hagen MD [address] [place] [address] PCP - General Family Medicine 03/27/19 Deena Lyn, ISABEL [address] [place] [address] Referring Family Medicine 04/03/24 Darwin Starr DO [address] [place] [address] [place] [address] Referring Technician [employer] 07/02/24 Care Services Manager Relationship Specialty Start Date End Date Giovani Hagen MD [address] [place] [address] PCP - Medical [employer] 10/22/18 04/23/99 Giovani Hagen MD [address] [place] [address] PCP - General Family Medicine 08/30/22 Care Services Manager Relationship Specialty Start Date End Date Giovani Hagen MD [address] [place] [address] PCP - General Family Medicine 03/27/19 Deena Lyn, ISABEL [address] [place] [address] Referring Family Medicine 04/03/24 Darwin Starr DO [address] [place] [address] [place] [address] Referring Technician [employer] 07/02/24 Care Services Manager Relationship Specialty Start Date End Date Giovani Hagen MD [address] [facility] [address] [place] [address] PCP - General Family Medicine 03/27/19 Deena Lyn, [employer] [address] [facility] [address] [place] [address] Referring Family Medicine 04/03/24 Darwin Starr DO [address] [place] [address] [place] [address] Referring Technician [employer] 07/02/24 Care Services Manager Relationship Specialty Start Date End Date Giovani Hagen MD [address] [place] [address] PCP - Medical [employer] 10/22/18 04/23/99 Giovani Hagen MD [address] [place] [address] PCP - General Family Medicine 08/30/22 Care Services Manager Relationship Specialty Start Date End Date Giovani Hagen MD [address] [place] [address] PCP - Medical [employer] 10/22/18 04/23/99 Giovani Hagen MD [address] [place] [address] PCP - General Family Medicine 08/30/22 Care Services Manager Relationship Specialty Start Date End Date Giovani Hagen MD [address] [place] [address] PCP - Medical [employer] 10/22/18 04/23/99 Giovani Hagen MD [address] [place] [address] PCP - General Family Medicine 08/30/22 Care Services Manager Relationship Specialty Start Date End Date Giovani Hagen MD [address] [facility] [address] [place] [address] PCP - Medical [employer] 10/22/18 04/23/99 Giovani Hagen MD [address] [facility] [address] [place] [address] PCP - General Family Medicine 08/30/22 Care Services Manager Relationship Specialty Start Date End Date Giovani Hagen MD [address] [place] [address] PCP - Medical [employer] 10/22/18 04/23/99 Giovani Hagen MD [address] [place] [address] PCP - General Family Medicine 08/30/22 Care Services Manager Relationship Specialty Start Date End Date Giovani Hagen MD [address] [place] [address] PCP - Medical [employer] 10/22/18 04/23/99 Giovani Hgaen MD [address] [place] [address] PCP - General Family Medicine 08/30/22 Care Services Manager Relationship Specialty Start Date End Date Giovani Hagen MD [address] [place] [address] PCP - Medical [employer] 10/22/18 04/23/99 Giovani Hagen MD [address] [place] [address] PCP - General Family Medicine 08/30/22 Care Services Manager Relationship Specialty Start Date End Date Giovani Hagen MD [address] [facility] [address] [place] [address] PCP - Medical [employer] 10/22/18 04/23/99 Giovani Hagen MD [address] [facility] [address] [place] [address] PCP - General Family Medicine 08/30/22 Care Services Manager Relationship Specialty Start Date End Date Giovani Hagen MD [address] [place] [address] PCP - Medical [employer] 10/22/18 04/23/99 Giovani Hagen MD [address] [place] [address] PCP - General Family Medicine 08/30/22 Care Services Manager Relationship Specialty Start Date End Date Giovani Hagen MD [address] [place] [address] PCP - Medical [employer] 10/22/18 04/23/99 Giovani Hagen MD 112 [facility] [address] [place] [address] PCP - General Family Medicine 08/30/22 Care Services Manager Relationship Specialty Start Date End Date Giovani Hagen MD [address] [facility] [address] [place] [address] PCP - General Family Medicine 03/27/19 Deena Lyn APRN [address] [facility] [address] [place] [address] Referring Family Medicine 04/03/24 Darwin Starr DO [address] [place] [address] [place] [address] Referring Technician [employer] 07/02/24 Source Comments (unrecognize d section and content) In the event this informatio n is protected by the Federal Confidentiality of Alcohol and Drug Abuse Patient Records regulations: The Federal rules restrict any use of the information to criminally investigate or prosecute any alcohol or drug abuse patient.[facility] HospitalIn the event this information is protected by the Federal Confidentiality of Alcohol and Drug Abuse Patient Records regulations: The Federal rules restrict any use of the information to criminally investigate or prosecute any alcohol or drug abuse patient.[facility] HospitalIn the event this information is protected by the Federal Confidentiality of Alcohol and Drug Abuse Patient Records regulations: The Federal rules restrict any use of the information to criminally investigate or prosecute any alcohol or drug abuse patient.[facility] HospitalIn the event this information is protected by the Federal Confidentiality of Alcohol and Drug Abuse Patient Records regulations: The Federal rules restrict any use of the information to criminally investigate or prosecute any alcohol or drug abuse patient.[facility] HospitalIn the event this information is protected by the Federal Confidentiality of Alcohol and Drug Abuse Patient Records regulations: The Federal rules restrict any use of the information to criminally investigate or prosecute any alcohol or drug abuse patient.[facility] HospitalIn the event this information is protected by the Federal Confidentiality of Alcohol and Drug Abuse Patient Records regulations: The Federal rules restrict any use of the information to criminally investigate or prosecute any alcohol or drug abuse patient.[facility] HospitalIn the event this information is protected by the Federal Confidentiality of Alcohol and Drug Abuse Patient Records regulations: The Federal rules restrict any use of the information to criminally investigate or prosecute any alcohol or drug abuse patient.[facility] HospitalIn the event this information is protected by the Federal Confidentiality of Alcohol and Drug Abuse Patient Records regulations: The Federal rules restrict any use of the information to criminally investigate or prosecute any alcohol or drug abuse patient.[facility] HospitalIn the event this information is protected by the Federal Confidentiality of Alcohol and Drug Abuse Patient Records regulations: The Federal rules restrict any use of the information to criminally investigate or prosecute any alcohol or drug abuse patient.[facility] HospitalIn the event this information is protected by the Federal Confidentiality of Alcohol and Drug Abuse Patient Records regulations: The Federal rules restrict any use of the information to criminally investigate or prosecute any alcohol or drug abuse patient.[facility] HospitalIn the event this information is protected by the Federal Confidentiality of Alcohol and Drug Abuse Patient Records regulations: The Federal rules restrict any use of the information to criminally investigate or prosecute any alcohol or drug abuse patient.[facility] HospitalIn the event this information is protected by the Federal Confidentiality of Alcohol and Drug Abuse Patient Records regulations: The Federal rules restrict any use of the information to criminally investigate or prosecute any alcohol or drug abuse patient.[facility] HospitalIn the event this information is protected by the Federal Confidentiality of Alcohol and Drug Abuse Patient Records regulations: The Federal rules restrict any use of the information to criminally investigate or prosecute any alcohol or drug abuse patient.[facility] HospitalIn the event this information is protected by the Federal Confidentiality of Alcohol and Drug Abuse Patient Records regulations: The Federal rules restrict any use of the information to criminally investigate or prosecute any alcohol or drug abuse patient.[facility] HospitalIn the event this information is protected by the Federal Confidentiality of Alcohol and Drug Abuse Patient Records regulations: The Federal rules restrict any use of the information to criminally investigate or prosecute any alcohol or drug abuse patient.[facility] HospitalIn the event this information is protected by the Federal Confidentiality of Alcohol and Drug Abuse Patient Records regulations: The Federal rules restrict any use of the information to criminally investigate or prosecute any alcohol or drug abuse patient.[facility] HospitalIn the event this information is protected by the Federal Confidentiality of Alcohol and Drug Abuse Patient Records regulations: The Federal rules restrict any use of the information to criminally investigate or prosecute any alcohol or drug abuse patient.[facility] HospitalIn the event this information is protected by the Federal Confidentiality of Alcohol and Drug Abuse Patient Records regulations: The Federal rules restrict any use of the information to criminally investigate or prosecute any alcohol or drug abuse patient.[facility] HospitalIn the event this information is protected by the Federal Confidentiality of Alcohol and Drug Abuse Patient Records regulations: The Federal rules restrict any use of the information to criminally investigate or prosecute any alcohol or drug abuse patient.[facility] HospitalIn the event this information is protected by the Federal Confidentiality of Alcohol and Drug Abuse Patient Records regulations: The Federal rules restrict any use of the information to criminally investigate or prosecute any alcohol or drug abuse patient.[facility] HospitalIn the event this information is protected by the Federal Confidentiality of Alcohol and Drug Abuse Patient Records regulations: The Federal rules restrict any use of the information to criminally investigate or prosecute any alcohol or drug abuse patient.[facility] HospitalIn the event this information is protected by the Federal Confidentiality of Alcohol and Drug Abuse Patient Records regulations: The Federal rules restrict any use of the information to criminally investigate or prosecute any alcohol or drug abuse patient.[facility] HospitalIn the event this information is protected by the Federal Confidentiality of Alcohol and Drug Abuse Patient Records regulations: The Federal rules restrict any use of the information to criminally investigate or prosecute any alcohol or drug abuse patient.[facility] HospitalIn the event this information is protected by the Federal Confidentiality of Alcohol and Drug Abuse Patient Records regulations: The Federal rules restrict any use of the information to criminally investigate or prosecute any alcohol or drug abuse patient.[facility] HospitalIn the event this information is protected by the Federal Confidentiality of Alcohol and Drug Abuse Patient Records regulations: The Federal rules restrict any use of the information to criminally investigate or prosecute any alcohol or drug abuse patient.[facility] HospitalIn the event this information is protected by the Federal Confidentiality of Alcohol and Drug Abuse Patient Records regulations: The Federal rules restrict any use of the information to criminally investigate or prosecute any alcohol or drug abuse patient.[facility] HospitalIn the event this information is protected by the Federal Confidentiality of Alcohol and Drug Abuse Patient Records regulations: The Federal rules restrict any use of the information to criminally investigate or prosecute any alcohol or drug abuse patient.[facility] HospitalIn the event this information is protected by the Federal Confidentiality of Alcohol and Drug Abuse Patient Records regulations: The Federal rules restrict any use of the information to criminally investigate or prosecute any alcohol or drug abuse patient.[facility] HospitalIn the event this information is protected by the Federal Confidentiality of Alcohol and Drug Abuse Patient Records regulations: The Federal rules restrict any use of the information to criminally investigate or prosecute any alcohol or drug abuse patient.[facility] HospitalIn the event this information is protected by the Federal Confidentiality of Alcohol and Drug Abuse Patient Records regulations: The Federal rules restrict any use of the information to criminally investigate or prosecute any alcohol or drug abuse patient.[facility] HospitalIn the event this information is protected by the Federal Confidentiality of Alcohol and Drug Abuse Patient Records regulations: The Federal rules restrict any use of the information to criminally investigate or prosecute any alcohol or drug abuse patient.[facility] HospitalIn the event this information is protected by the Federal Confidentiality of Alcohol and Drug Abuse Patient Records regulations: The Federal rules restrict any use of the information to criminally investigate or prosecute any alcohol or drug abuse patient.[facility] HospitalIn the event this information is protected by the Federal Confidentiality of Alcohol and Drug Abuse Patient Records regulations: The Federal rules restrict any use of the information to criminally investigate or prosecute any alcohol or drug abuse patient.[facility] HospitalIn the event this information is protected by the Federal Confidentiality of Alcohol and Drug Abuse Patient Records regulations: The Federal rules restrict any use of the information to criminally investigate or prosecute any alcohol or drug abuse patient.[facility] HospitalIn the event this information is protected by the Federal Confidentiality of Alcohol and Drug Abuse Patient Records regulations: The Federal rules restrict any use of the information to criminally investigate or prosecute any alcohol or drug abuse patient.[facility] HospitalIn the event this information is protected by the Federal Confidentiality of Alcohol and Drug Abuse Patient Records regulations: The Federal rules restrict any use of the information to criminally investigate or prosecute any alcohol or drug abuse patient.[facility] HospitalIn the event this information is protected by the Federal Confidentiality of Alcohol and Drug Abuse Patient Records regulations: The Federal rules restrict any use of the information to criminally investigate or prosecute any alcohol or drug abuse patient.[facility] HospitalIn the event this information is protected by the Federal Confidentiality of Alcohol and Drug Abuse Patient Records regulations: The Federal rules restrict any use of the information to criminally investigate or prosecute any alcohol or drug abuse patient.[facility] HospitalIn the event this information is protected by the Federal Confidentiality of Alcohol and Drug Abuse Patient Records regulations: The Federal rules restrict any use of the information to criminally investigate or prosecute any alcohol or drug abuse patient.[facility] HospitalIn the event this information is protected by the Federal Confidentiality of Alcohol and Drug Abuse Patient Records regulations: The Federal rules restrict any use of the information to criminally investigate or prosecute any alcohol or drug abuse patient.[facility] HospitalIn the event this information is protected by the Federal Confidentiality of Alcohol and Drug Abuse Patient Records regulations: The Federal rules restrict any use of the information to criminally investigate or prosecute any alcohol or drug abuse patient.[facility] HospitalIn the event this information is protected by the Federal Confidentiality of Alcohol and Drug Abuse Patient Records regulations: The Federal rules restrict any use of the information to criminally investigate or prosecute any alcohol or drug abuse patient.[facility] HospitalIn the event this information is protected by the Federal Confidentiality of Alcohol and Drug Abuse Patient Records regulations: The Federal rules restrict any use of the information to criminally investigate or prosecute any alcohol or drug abuse patient.[facility] HospitalIn the event this information is protected by the Federal Confidentiality of Alcohol and Drug Abuse Patient Records regulations: The Federal rules restrict any use of the information to criminally investigate or prosecute any alcohol or drug abuse patient.[facility] HospitalIn the event this information is protected by the Federal Confidentiality of Alcohol and Drug Abuse Patient Records regulations: The Federal rules restrict any use of the information to criminally investigate or prosecute any alcohol or drug abuse patient.[facility] HospitalIn the event this information is protected by the Federal Confidentiality of Alcohol and Drug Abuse Patient Records regulations: The Federal rules restrict any use of the information to criminally investigate or prosecute any alcohol or drug abuse patient.[facility] HospitalIn the event this information is protected by the Federal Confidentiality of Alcohol and Drug Abuse Patient Records regulations: The Federal rules restrict any use of the information to criminally investigate or prosecute any alcohol or drug abuse patient.[facility] HospitalIn the event this information is protected by the Federal Confidentiality of Alcohol and Drug Abuse Patient Records regulations: The Federal rules restrict any use of the information to criminally investigate or prosecute any alcohol or drug abuse patient.[facility] HospitalIn the event this information is protected by the Federal Confidentiality of Alcohol and Drug Abuse Patient Records regulations: The Federal rules restrict any use of the information to criminally investigate or prosecute any alcohol or drug abuse patient.[facility] HospitalIn the event this information is protected by the Federal Confidentiality of Alcohol and Drug Abuse Patient Records regulations: The Federal rules restrict any use of the information to criminally investigate or prosecute any alcohol or drug abuse patient.[facility] HospitalIn the event this information is protected by the Federal Confidentiality of Alcohol and Drug Abuse Patient Records regulations: The Federal rules restrict any use of the information to criminally investigate or prosecute any alcohol or drug abuse patient.[facility] HospitalIn the event this information is protected by the Federal Confidentiality of Alcohol and Drug Abuse Patient Records regulations: The Federal rules restrict any use of the information to criminally investigate or prosecute any alcohol or drug abuse patient.[facility] HospitalIn the event this information is protected by the Federal Confidentiality of Alcohol and Drug Abuse Patient Records regulations: The Federal rules restrict any use of the information to criminally investigate or prosecute any alcohol or drug abuse patient.[facility] HospitalIn the event this information is protected by the Federal Confidentiality of Alcohol and Drug Abuse Patient Records regulations: The Federal rules restrict any use of the information to criminally investigate or prosecute any alcohol or drug abuse patient.[facility] HospitalIn the event this information is protected by the Federal Confidentiality of Alcohol and Drug Abuse Patient Records regulations: The Federal rules restrict any use of the information to criminally investigate or prosecute any alcohol or drug abuse patient.[facility] HospitalIn the event this information is protected by the Federal Confidentiality of Alcohol and Drug Abuse Patient Records regulations: The Federal rules restrict any use of the information to criminally investigate or prosecute any alcohol or drug abuse patient.[facility] HospitalIn the event this information is protected by the Federal Confidentiality of Alcohol and Drug Abuse Patient Records regulations: The Federal rules restrict any use of the information to criminally investigate or prosecute any alcohol or drug abuse patient.[facility] HospitalIn the event this information is protected by the Federal Confidentiality of Alcohol and Drug Abuse Patient Records regulations: The Federal rules restrict any use of the information to criminally investigate or prosecute any alcohol or drug abuse patient.[facility] HospitalIn the event this information is protected by the Federal Confidentiality of Alcohol and Drug Abuse Patient Records regulations: The Federal rules restrict any use of the information to criminally investigate or prosecute any alcohol or drug abuse patient.[facility] Reason for Visit (unrecogniz ed section [...] & [place] [address] [place] [address] [place] [address] Referral ID Status Reason Start Date Expiration Date V isits Requested Visits Authorized [id number] Closed Auto-Generate d Referral 05/27/2022 06/26/2023 1 [...] Received Outside Medical Records [facility] [place] Reason Comments Received Outside Medical Records Cardio Clearance [facility] [place] Reason Comments Back Pain Reason Comments Dyspareunia [...] ligament of right ankle, subsequent encounter Procedures IN OFFICE/OUTPATIENT [facility] Giovani Hagen MD [address] [facility] [address] [place] [address] Phone: tel: fax: Prateek Pedraza, DPM [address] [place] [address] Phone: tel: fax: Referral ID Status Reason Start Date Expiration Date V isits Requested Visits Authorized [id number] Closed Specialty Services Required 04/22/2024 10/19/2024 1 [...] WK 2 post op Reason Comments Painful [place] bleeding with intercourse Reason Comments Post-op 3 [...] EXERCISES RE, EA 15 MIN. Mario Harper, [employer] [address] [place] [address] Phone: tel: fax: [facility] [address] [place] [address] Referral ID Status Reason Start Date Expiration Date Visits Requested Visits Authorized [id number] Authorized Auto-Generat ed Referral 10/23/2023 10/21/2024 25 25 Reason Comments Radio Gen RMP Specialty Diagnoses / Procedures Referred By Contac t Referred To Contact XR IMAGING Diagnoses Pelvic floor dysfunction Chronic constipation Procedures XR ABDOMEN 1V SUPINE RADIOLOGIC EXAM ABDOMEN 1 VIEW Mario Harper APRN.[employer] [address] [place] [address] Phone: tel: fax: [place] [address] Referral ID Status Reason Start Date Expiration Date Visits Requested Visits Authorized [id number] Authorized Auto-Generat ed Referral 10/09/2024 11/08/2025 3 3 Reason Comments Med Refill Doxepin, Ativan, Add erall both 10 and 30 mg Reason Comments Ankle Pain RT ankle injury Reason Comments lab results Reason Onset Date Comments dose correction on med 12/16/2024 Reason Comments Ankle Pain F/U RT ankle sinus t arsi inj x1 Reason Comments Consult Specialty Diagnoses / Procedures Referred By Contac t Referred To Contact Diagnoses Other specified dyspareunia Pelvic pain in female Procedures OFFICE/OUTPATIENT [facility] 60 MINUTES Javy Boudreaux MD [address] [address] Phone: tel: fax: Referral ID Status Reason Start Date Expiration Date V isits Requested Visits Authorized [id number] Closed PCP Requested Referral Auto-Generated Referral 07/10/2024 07/10/2025 1 1 Goals (unrecognized section and content) Goals may [...] BE BASED ON THE PRIMARY CLINICAL RECORDS. [facility]. provides no warranty or guarantee of the accuracy or completeness of information in this document.
--- NOTE | 2025-01-06 01:04 | ECG_ITS ---
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
--- NOTE | 2025-01-06 01:24 | XR_ITS ---
The [address] [address] Patient Name: ORION HARPER MRN: [facility]:[id number] date: 1990 Sex: F Assigned Patient Location: ER Current Patient Location: Accession/Order Number: [id number] Exam Date: 01/06/2025 01:28 Report Date: 01/06/2025 08:57 At the request of: DENILSON MEJÍA MD Procedure: XR chest 1V PORTABLE AP ERECT CHEST 0114 hours CLINICAL HISTORY: chest pain COMPARISON: 08/14/2024 Once again there is shallow inspiration. The heart size is accentuated though probably not significantly changed.. There is no vascular congestion. No definite developing consolidation is seen. There is no sizable effusion or pneumothorax. The osseous structures are intact. XR/XR chest 1V IMPRESSION: SHALLOW INSPIRATION. NO ACUTE FINDINGS Impression dictated by: Sandy Knight M.D. 01/06/2025 8:57 AM Dictation Location: [place] [address] Electronically authenticated by: [id number] Y Date: 01/06/2025 08:57
--- NOTE | 2025-01-06 01:25 | ED.CHESTPAI1 ---
HPI - Chest Pain General Chief Complaint: Chest Pain Stated Complaint: CHEST PAIN SOB Time Seen by Provider: 01/06/25 01:18 Source: patient Mode of arrival: walk-in Limitations: no limitations History of Present Illness HPI narrative: awakened from her sleep with heart burn that radiated into her left neck and jaw. No past history of GERD. Tried TUMS without benefit. Pain beneath her left breast and into her left neck. No past history of CAD Related Data Home Medications ?Medication ?Instructions ?Recorded ?Confirmed albuterol sulfate 90 mcg/actuation 2 inh inhalation Q4H PRN shortness 02/06/23 12/09/24 aerosol inhaler of breath or wheezing cariprazine 4.5 mg capsule 4.5 mg PO QPM 02/06/23 12/09/24 (Vraylar) epinephrine 0.3 mg/0.3 mL 0.3 ml subcut Q4H PRN anaphylaxis 02/06/23 12/09/24 injection, auto-injector dextroamphetamine-amphetamine ER 30 mg PO QDAY 03/17/24 12/09/24 30 mg 24hr capsule,extend release escitalopram oxalate 20 mg tablet 20 mg PO QDAY 03/17/24 12/09/24 dextroamphetamine-amphetamine ER 10 mg PO DAILY 08/14/24 12/09/24 10 mg 24hr capsule,extend release fluticasone fur. 100 mcg-umeclid 1 inh inhalation DAILY 08/14/24 12/09/24 62.5 mcg-vilant 25 mcg inhalat.powder (Trelegy Ellipta) metoprolol succinate 25 mg 25 mg PO DAILY 08/14/24 12/09/24 tablet,extended release 24 hr montelukast 10 mg tablet 10 mg PO .QHS 08/14/24 12/09/24 albuterol sulfate 90 mcg/actuation 2 puff inhalation Q6H PRN 08/15/24 08/15/24 aerosol inhaler shortness of breath or wheezing clomipramine 50 mg capsule 50 mg PO .QHS 08/15/24 12/09/24 bupropion HCl 300 mg 24 hr tablet, mg PO 12/09/24 extended release flexeral 12/09/24 Previous Rx's ?Medication ?Instructions ?Recorded hydrocodone 5 mg-acetaminophen 325 1 tab PO Q4H PRN pain #10 tabs 09/06/24 mg tablet Allergies Allergy/AdvReac Type Severity Reaction Status Date / Time cat dander Allergy Anaphylaxis Verified 01/06/25 01:02 Iodinated Contrast Media Allergy Hives Verified 01/06/25 01:02 Review of Systems ROS Status of ROS 10 or more systems reviewed and unremarkable except as noted in history and below [facility] Medical History (Updated 01/06/25 @ 05:48 by Vladimir Naylor MD) Hypoxia ?R09.02 - Hypoxemia (ICD-10) Metabolic acidosis ?E87.20 - Acidosis, unspecified (ICD-10) Elevated liver function tests ?R79.89 - Other specified abnormal findings of blood chemistry (ICD-10) Altered mental status ?R41.82 - Altered mental status, unspecified (ICD-10) Laceration of left wrist ?S61.512A - Laceration without foreign body of left wrist, initial encounter (ICD-10) Benzodiazepine overdose ?T42.4X1A - Poisoning by benzodiazepines, accidental (unintentional), initial encounter (ICD-10) Suicide attempt ?T14.91XA - Suicide attempt, initial encounter (ICD-10) Alcoholic intoxication ?F10.929 - Alcohol use, unspecified with intoxication, unspecified (ICD-10) Bronchitis (04/07/24) ?J40 - Bronchitis, not specified as acute or chronic (ICD-10) HTN (hypertension) ?I10 - Essential (primary) hypertension (ICD-10) Prediabetes ?R73.03 - Prediabetes (ICD-10) Suicidal ideation ?R45.851 - Suicidal ideations (ICD-10) Depression ?F32.A - Depression, unspecified (ICD-10) Anxiety ?F41.9 - Anxiety disorder, unspecified (ICD-10) 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) ?R76.11 - Nonspecific reaction to tuberculin skin test without active tuberculosis (ICD-10) Postoperative nausea and vomiting ?R11.2 - Nausea with vomiting, unspecified (ICD-10) ?Z98.890 - Other specified postprocedural states (ICD-10) 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 - depression (ICD-10) Ovarian cyst ?N83.209 - Unspecified ovarian cyst, unspecified side (ICD-10) HELLP (hemolytic anemia/elev liver enzymes/low platelets in ) ?O14.20 - HELLP syndrome (HELLP), unspecified trimester (ICD-10) Gestational hypertension ?O13.9 - Gestational [-induced] hypertension without significant proteinuria, unspecified trimester (ICD-10) Dizziness ?R42 - Dizziness and giddiness (ICD-10) Vitamin D deficiency ?E55.9 - Vitamin D deficiency, unspecified (ICD-10) Urinary tract infection ?N39.0 - Urinary tract infection, site not specified (ICD-10) Urinary frequency ?R35.0 - Frequency of micturition (ICD-10) Hypercholesterolemia ?E78.00 - Pure hypercholesterolemia, unspecified (ICD-10) Osteoarthritis, knee ?M17.9 - Osteoarthritis of knee, unspecified (ICD-10) Gastroparesis ?K31.84 - Gastroparesis (ICD-10) GERD (gastroesophageal reflux disease) ?K21.9 - Gastro-esophageal reflux disease without esophagitis (ICD-10) Dysuria ?R30.0 - Dysuria (ICD-10) Enlarged thyroid ?E04.9 - Nontoxic goiter, unspecified (ICD-10) Headache ?R51.9 - Headache, unspecified (ICD-10) Skin pain ?R20.8 - Other disturbances of skin sensation (ICD-10) Sciatica ?M54.30 - Sciatica, unspecified side (ICD-10) Poor concentration ?R41.840 - Attention and concentration deficit (ICD-10) ENGLISH (nonalcoholic steatohepatitis) ?K75.81 - Nonalcoholic steatohepatitis (ENGLISH) (ICD-10) Kidney stones ?N20.0 - Calculus of kidney (ICD-10) Mood swings ?R45.86 - Emotional lability (ICD-10) Sinusitis ?J32.9 - Chronic sinusitis, unspecified (ICD-10) Insomnia ?G47.00 - Insomnia, unspecified (ICD-10) Hypersexuality ?F52.8 - Other sexual dysfunction not due to a substance or known physiological condition (ICD-10) Hyperglycemia ?R73.9 - Hyperglycemia, unspecified (ICD-10) Elevated liver enzymes ?R74.8 - Abnormal levels of other serum enzymes (ICD-10) Dysphagia ?R13.10 - Dysphagia, unspecified (ICD-10) Diverticulitis ?K57.92 - Diverticulitis of intestine, part unspecified, without perforation or abscess without bleeding (ICD-10) Bipolar 1 disorder ?F31.9 - Bipolar disorder, unspecified (ICD-10) Attention deficit hyperactivity disorder ?F90.9 - Attention-deficit hyperactivity disorder, unspecified type (ICD-10) Abnormal involuntary movement ?R25.9 - Unspecified abnormal involuntary movements (ICD-10) Endometriosis ?N80.9 - Endometriosis, unspecified (ICD-10) Dyspareunia Pelvic pain ?R10.2 - Pelvic and perineal pain (ICD-10) History of blood transfusion ?Z92.89 - Personal history of other medical treatment (ICD-10) Anemia ?D64.9 - Anemia, unspecified (ICD-10) PTSD (post-traumatic stress disorder) ?F43.10 - Post-traumatic stress disorder, unspecified (ICD-10) Depression ?F32.A - Depression, unspecified (ICD-10) Anxiety ?F41.9 - Anxiety disorder, unspecified (ICD-10) COVID-19 ?U07.1 - COVID-19 (ICD-10) Asthma ?J45.909 - Unspecified asthma, uncomplicated (ICD-10) Migraine ?G43.909 - Migraine, unspecified, not intractable, without status migrainosus (ICD-10) Heartburn ?R12 - Heartburn (ICD-10) Constipation ?K59.00 - Constipation, unspecified (ICD-10) IBS (irritable bowel syndrome) ?K58.9 - Irritable bowel syndrome without diarrhea (ICD-10) Tachycardia ?R00.0 - Tachycardia, unspecified (ICD-10) Syncope ?R55 - Syncope and collapse (ICD-10) Surgical History (Updated 08/15/24 @ 14:49 by Lauren Denny) History of ankle surgery ?Z98.890 - Other specified postprocedural states (ICD-10) Hx of cholecystectomy ?Z90.49 - Acquired absence of other specified parts of digestive tract (ICD-10) History of cholecystectomy (03/21/23) ?Z90.49 - Acquired absence of other specified parts of digestive tract (ICD-10) History of esophagogastroduodenoscopy (EGD) ?Z98.890 - Other specified postprocedural states (ICD-10) History of colonoscopy ?Z98.890 - Other specified postprocedural states (ICD-10) History of hysterectomy ?Z90.710 - Acquired absence of both cervix and uterus (ICD-10) History of section ?Z98.891 - History of uterine scar from previous surgery (ICD-10) Family History (System 08/15/24 @ 14:49 by Lauren Denny) Other Family history of diabetes mellitus Family history of hypertension Family history of ovarian cancer PONV (postoperative nausea and vomiting) Social History (System 08/15/24 @ 14:49 by Lauren Denny) Within the past year, how often did you have a drink containing alcohol: 2-4 times a month Smoking status: Former smoker Non-prescribed substance use: cannabis (any form) 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 Highest level of school completed/degree received: high school graduate Little interest or pleasure in doing things: not at all Feeling down, depressed, or hopeless: not at all Exam Constitutional Vital Signs, click to edit/add: Last Vital Signs Temp 97.8 F 01/06/25 00:59 Pulse 75 01/06/25 04:40 Resp 13 01/06/25 03:50 BP 128/98 H 01/06/25 04:30 Pulse Ox 98 01/06/25 04:40 O2 Del Method Room Air 01/06/25 00:59 Common normals: no apparent distress, average body habitus, oriented x3, no limitations, healthy appearing, alert and well nourished [facility] Common normals: normocephalic and head/scalp atraumatic Eye Common normals: EOMs intact bilaterally and conjunctivae normal Respiratory Common normals: normal respiratory effort, no retractions, no use of accessory muscles and clear to auscultation bilaterally Cardio Common normals: regular rate, regular rhythm, S1 normal heart sound and S2 normal heart sound GI Common normals: Normal to inspection, nondistended, normoactive bowel sounds present, soft to palpation and non-tender Extremity Common normals: normal to inspection and full ROM Neuro Common normals: oriented x3, CN's II-XII intact bilaterally, moves all extremities and no focal motor deficits Psych Appearance: grossly normal Course Vital Signs Vital signs: Vital Signs Temperature 97.8 F 01/06/25 00:59 Pulse Rate 88 01/06/25 00:59 Respiratory Rate 18 01/06/25 00:59 Blood Pressure 127/83 01/06/25 00:59 Pulse Oximetry 98 01/06/25 00:59 Oxygen Delivery Method Room Air 01/06/25 00:59 Temperature 97.8 F 01/06/25 00:59 Pulse Rate 75 01/06/25 04:40 Respiratory Rate 13 01/06/25 03:50 Blood Pressure 128/98 H 01/06/25 04:30 Pulse Oximetry 98 01/06/25 04:40 Oxygen Delivery Method Room Air 01/06/25 00:59 MDM - Chest Pain MDM Narrative Medical decision making narrative: patient presents with chest pain. Pain behind left breast that radiated to her neck. She has heart score of 2. She received relief from GI cocktail but not complete relief. Also given nitro and felt this help some too. Her pain eventually resolved. Serial troponin neg. EKG normal. Patient informed that it remains unclear as to the cause of her pain but would recommend a stress test . Offered admission and workup in the hospital today. States she has an appointment today with her PCP and will talk to her doctor about the stress test. Lab Data Labs: Lab Results 01/06/25 01/06/25 Range/Units 01:10 04:33 WBC 11.2 H (4.0-11.0) 10^3/uL RBC 4.11 L (4.20-5.40) 10^6/uL Hgb 13.1 (12.0-16.0) g/dL Hct 39.7 (36.0-48.0) % MCV 96.6 (81.0-99.0) fL MCH 31.9 (26.7-34.0) pg MCHC 33.0 (29.9-35.2) g/dL RDW 12.4 (11.0-15.0) % Plt Count 213 (150-450) 10^3/uL MPV 10.3 (9.5-13.5) fL Neut % (Auto) 62.4 (43.0-75.0) % Lymph % (Auto) 29.1 (20.5-60.0) % [place] % (Auto) 4.5 (1.7-12.0) % Eos % (Auto) 1.7 (0.9-7.0) % Baso % (Auto) 0.3 (0.2-2.0) % Neut # (Auto) 7.0 H (1.4-6.5) 10^3/uL Lymph # (Auto) 3.3 (1.2-3.8) 10^3/uL [place] # (Auto) 0.5 (0.3-0.8) 10^3/uL Eos # (Auto) 0.2 (0.0-0.7) 10^3/uL Baso # (Auto) 0.0 (0.0-0.1) 10^3/uL Abs Immat Gran (auto) 0.22 H (0.00-0.03) 10^3/uL Imm/Tot Granulo (auto) 2.0 H (0.0-0.5) % D-Dimer 0.41 (<=0.59) mg/L FEU Sodium 141 (136-145) mmol/L Potassium 3.2 L (3.5-5.1) mmol/L Chloride 104 (98-107) mmol/L Carbon Dioxide 26.1 (21.0-32.0) mmol/L Anion Gap 14.1 BUN 16.0 (7.0-18.0) mg/dL Creatinine 0.91 (0.55-1.02) mg/dL Est GFR ( Amer) >60 (>=60 mL/min/1.73m^2) Est GFR (Non-Af Amer) >60 (>=60 mL/min/1.73m^2) BUN/Creatinine Ratio 17.6 Glucose 191 H (74-106) mg/dL Calcium 9.0 (8.5-10.1) mg/dL Troponin I High Sens <4.0 L <4.0 L (4.0-51.3) pg/mL Discharge Plan Discharge Chief Complaint: Chest Pain Clinical Impression: Chest pain Patient Disposition: Home, Self-Care Prescriptions / Home Meds: No Action albuterol sulfate 90 mcg/actuation HFA aerosol inhaler 2 inh INHALATION Q4H PRN (Reason: shortness of breath or wheezing) Vraylar 4.5 mg capsule 4.5 mg PO QPM epinephrine 0.3 mg/0.3 mL auto-injector 0.3 ml subcut Q4H PRN (Reason: anaphylaxis) dextroamphetamine-amphetamine 30 mg capsule,extended release 24hr 30 mg PO QDAY escitalopram oxalate 20 mg tablet 20 mg PO QDAY dextroamphetamine-amphetamine 10 mg capsule,extended release 24hr 10 mg PO DAILY montelukast 10 mg tablet 10 mg PO .QHS metoprolol succinate 25 mg tablet extended release 24 hr 25 mg PO DAILY Trelegy Ellipta 100-62.5-25 mcg blister with device 1 inh INHALATION DAILY albuterol sulfate 90 mcg/actuation HFA aerosol inhaler 2 puff INHALATION Q6H PRN (Reason: shortness of breath or wheezing) clomipramine 50 mg capsule 50 mg PO .QHS hydrocodone-acetaminophen 5-325 mg tablet 1 tab PO Q4H PRN (Reason: pain) Qty: 10 0RF bupropion HCl 300 mg tablet extended release 24 hr PO flexeral Print Language: Sudanese Instructions: Chest Pain (ED) Additional Instructions: follow up with your doctor today as planned . Discuss recommendation for stress test Referrals: GIOVANI HAGEN [Primary Care Provider, Family Practice] - 1 week
[2025-01-06 01:32] LABS: Hematocrit 39.7 % (36.0-48.0); Hemoglobin 13.1 g/dL (12.0-16.0); Immature Granulocytes Abs Auto 0.22 10^3/uL (0.00-0.03); Immature Granulocytes Pct Auto 2.0 % (0.0-0.5); Lymphocytes Absolute Auto 3.3 10^3/uL (1.2-3.8); Mean Corpuscular HGB Conc 33.0 g/dL (29.9-35.2); Mean Corpuscular Hemoglobin 31.9 pg (26.7-34.0); Mean Corpuscular Volume 96.6 fL (81.0-99.0); Platelet Count 213 10^3/uL (150-450); Red Blood Count 4.11 10^6/uL (4.20-5.40); White Blood Count 11.2 10^3/uL (4.0-11.0)
[2025-01-06 01:49] LABS: Anion Gap 14.1; Blood Urea Nitrogen 16.0 mg/dL (7.0-18.0); Calcium 9.0 mg/dL (8.5-10.1); Carbon Dioxide 26.1 mmol/L (21.0-32.0); Chloride 104 mmol/L (98-107); Estimated GFR (African America >60 (>=60 mL/min/1.73m^2); Estimated GFR (Non-African Ame >60 (>=60 mL/min/1.73m^2); Glucose 191 mg/dL (74-106); Potassium 3.2 mmol/L (3.5-5.1); Sodium 141 mmol/L (136-145)
[2025-01-06] MEDS: lidocaine HCL 15 ML, MAG HYDROX/ALUMINUM HYD/SIMETH 30 ML, HYOSCYAMINE SULFATE 0.25 MG PO (01:53)
[2025-01-06] MEDS: NITROGLYCERIN 0.4 MG BOTTLE SL (02:41)
== END 2025-01-06 06:02 | disposition home or self-care (01) ==
PROVIDERS: Emergency Provider Internal Medicine; PCP Family Medicine
DX: R07.9 Chest pain, unspecified (principal)
CPT/HCPCS: 36415; 71045; 80048; 84484; 85025; 85378; 93005; 99285

== ENCOUNTER 2025-01-09 12:06 | Outpatient (OUT) | payer OTHER, SELFPAY ==
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
--- OUTSIDE RECORDS SUMMARY | 2024-12-30 09:00 | XMS_ITS | Encounter Summary ---
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 dysfunction. 7. Vaginal dryness (N89.8) Vaginal dryness unresponsive to estrogen cream and lubricants. - Advised continuation of lubricants as needed. Patient verbalized understanding of the plan of care and all questions were answered to her stated satisfaction. Written and verbal health teaching given to patient, patient verbalizes understanding and agrees with treatment plan. I spent 45 minutes in the visit, with more than 50% of the total [id number] time of the visit in counseling / coordination of care. I personally interviewed, confirmed and edited the above information if obtained by others. Emma Ying APRN.CNP This note was written with the assistance of Xavier TAPIA. It has been reviewed for accuracy howeverthere may remain errors. [1] Social History Tobacco Use Smoking status: Never Smokeless tobacco: Never Vaping Use Vaping status: Never Used Substance Use Topics Alcohol use: Yes Alcohol/week: 4.0 standard drinks of alcohol Types: 2 Cans of beer, 2 Shots of liquor per week Comment: socially Drug use: Never documented in this encounter Plan of Treatment Scheduled Referrals Name Type Priority Associated Diagnoses Orde r Schedule CONSULT TO PHYSICAL THERAPY Referral Routine Other specified dyspareunia Pelvic pain in female High-tone pelvic floor dysfunction Vulvodynia Stress incontinence Irritable bowel syndrome with constipation Vaginal dryness Chronic pelvic pain in female 1 Occurrences starting 12/30/2024 until 12/30/2025 documented as of this encounter Goals Goal Patient Goal Type Associated Problems Recent Progress Patient-Stated? Author Blood Pressure < 140/90 Blood Pressure 132/94( 025 9:14 AM EDT) Solo Silverman MD documented as of this encounter Visit Diagnoses Diagnosis Chronic pelvic pain in female- Primary Unspecified symptom associated with female genital organs Other specified dyspareunia Pelvic pain in female Unspecified symptom associated with female genital organs High-tone pelvic floor dysfunction Other specified disorders of female genital organs Vulvodynia Vulvodynia, unspecified Stress incontinence Female stress incontinence Irritable bowel syndrome with constipation Irritable bowel syndrome Vaginal dryness Other specified symptom associated with female genital organs documented in this encounter Care Teams Manager Drug Safety Relationship Specialty Start Date End Date Emerald Sanchez MD [address] [facility] [address] [place], [place] [id number] PCP - General Family Medicine 03/27/19 Deena Osorio APRN 112 [facility] [address] [place], [place] [phone] Referring Family Medicine 04/03/24 Darwin Starr DO [address] [place] [address] Referring Pinion Polisher 07/02/24 documented as of this encounter
--- OUTSIDE RECORDS SUMMARY | 2024-12-30 13:20 | XMS_ITS | Encounter Summary ---
Author Organization [facility] Address [address] [place] [address] Care Team Providers Care Nut Sifter Name Role Phone Emerald Sanchez MD Unavailable Emerald Sanchez MD Primary Care Provider [phone] Reason for Visit * Reason Comments Ankle Pain F/U RT ankle sinus t arsi inj x1 Encounter Details Date Type Department Care Team (Latest Contact Info) Description 12/30/2024 1:20 PM EDT Clinical Support [facility] [address] [place] [address] Milton Duvall, DPM FACFAS [address] [facility] [place] [address] Other synovitis and tenosynovitis, right ankle and foot (Primary Dx); Right foot pain; Other enthesopathy of right foot and ankle Social History Tobacco Use Types Packs/Day Years Used Date Smoking Tobacco: Former Cigarettes Smokeless Tobacco: Never Tobacco Cessation:Counseling Given: Yes Alcohol Use Standard Drinks/Week Comments Yes 2 [...] week 05/09/2024 How often do you attend zoroastrianism or zoroastrian serv ices? Never 05/09/2024 Do you belong to any clubs o r organizations such as zoroastrianism groups, unions, fraternal or athletic groups, or [...] Recorded Patient Health Questionnaire-2 Score 4 10/08/2024 [facility] [place] [facility] - Occupational Stress [...] time in the past 12 m [facility], were you homeless or living in a halfway (including now)? No 05/09/2024 Comments No Sex and Gender Information Value Date Recorded Sex Assigned at Not on file Legal Sex Female 7:29 PM EDT Gender Identity Not on file Sexual Orientation Not on file documented as of this encounter Last Filed Vital Signs Vital Sign Reading Time Taken Comments Blood Pressure 115/74 12/30/2024 1:46 PM EDT Pulse 91 12/30/2024 1:46 PM EDT Temperature - - Respiratory Rate - - Oxygen Saturation - - Inhaled Oxygen Concentration - - Weight 93.4 kg (206 lb) 12/30/2024 1:46 PM EDT Height 157.5 cm (5' 2 ) 12/30/2024 1:46 PM EDT Body Mass Index 37.68 12/30/2024 1:46 PM EDT documented in this encounter Progress Notes * Milton Duvall DPM FACFAS - 12/30/2024 1:20 PM EDT Images from the original note were not included. Patient: Belgica Barnett : 1990 PCP: Emerald Sanchez MD SUBJECTIVE This is a 34 y.o. female that presents today with a chief complaint of painful lateral aspect of the Right foot. The pain is located laterally at the level of the subtalar joint. They have noticed significant swelling and pain with ambulation. They have attempted numerous conservative therapies including shoe gear modifications anti-inflammatory medications rest ice and elevation to no avail. Patient states that she was surfing in [place] when she injured her right ankle and subtalar joint. She has been doing well since the surgery. No overt complaints. She does wear her orthotic devices occasionally. She had 50 percent relief with the cortisone injection given to her in her last visit. Allergies: Allergies Allergen Reactions Cat Dander Anaphylaxis Iodinated Contrast Media Hives Iodine Itching and Swelling Omnipaque 300: Patient experienced itching on her neck and left side of her face. Also, pt complained of tongue feeling itchy and feels like something is stuck in her throat . Patient received diphenhydramine (Benadryl) Past Medical History: Active Ambulatory Problems Diagnosis Date Noted Tremors of nervous system 09/23/2022 Anxiety 09/23/2022 Attention deficit hyperactivity disorder (ADHD), predominantly inattentive type 09/23/2022 Bipolar disorder, in partial remission, most recent episode manic (HCC) 09/23/2022 Diverticular disease of colon 09/23/2022 Dysphagia 09/23/2022 Elevated liver enzymes 09/23/2022 Exercise induced bronchospasm (HCC) 09/23/2022 Finding of above normal blood pressure 09/23/2022 History of hysterectomy 09/23/2022 Hyperglycemia 09/23/2022 Hypersexuality 09/23/2022 Insomnia 09/23/2022 Irritable bowel syndrome with constipation 09/23/2022 Mild intermittent asthma without complication (HCC) 09/23/2022 Mood swings 09/23/2022 Bilateral nephrolithiasis 09/23/2022 Nonalcoholic steatohepatitis (ENGLISH) 09/23/2022 Other specified abnormal findings of blood chemistry 09/23/2022 Poor concentration 09/23/2022 Sacroiliitis, not elsewhere classified 09/23/2022 Skin pain 09/23/2022 Thyroid enlargement 09/23/2022 Atherosclerosis of aorta 06/16/2020 Atherosclerosis of both carotid arteries 11/16/2020 Atherosclerosis of coronary artery without angina pectoris 05/18/2021 Gastroesophageal reflux disease without esophagitis 07/09/2019 Gastroparesis 11/02/2022 Generalized idiopathic epilepsy and epileptic syndromes, not intractable, without status epilepticus (HCC) 11/22/2019 Osteoarthritis of knee 06/14/2019 Hypercholesterolemia 07/01/2021 Recurrent UTI 12/12/2022 Vitamin D deficiency 05/16/2019 Dizziness 12/13/2022 Acute nonintractable headache 12/13/2022 History of COVID-19 02/06/2023 Overweight 02/06/2023 Acute biliary pancreatitis without infection or necrosis ([facility]-H[facility]) 03/21/2023 Calculus of gallbladder without cholecystitis without obstruction 03/23/2023 Cholecystitis 04/18/2023 History of acute pancreatitis 04/18/2023 History of cholecystectomy 04/18/2023 Cough 04/18/2023 Anaphylactic syndrome 04/18/2023 PTSD (post-traumatic stress disorder) 02/24/2015 Tinea 10/03/2023 Weight gain 10/03/2023 Glucose intolerance 10/03/2023 Dyshidrosis 10/03/2023 Cervical radiculopathy 12/26/2023 Body mass index (BMI) 36.0-36.9, adult 02/06/2024 Localized edema 02/06/2024 Pain and swelling of left shoulder 04/03/2024 Asthmatic bronchitis with acute exacerbation (HCC) 04/16/2024 Snoring 04/16/2024 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 Borderline diabetes 06/06/2024 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 Major depressive disorder, recurrent, moderate (HCC) 08/20/2024 Alcohol use, unspecified with alcohol-induced psychotic disorder, unspecified (HCC) 09/02/2024 Alcohol withdrawal delirium (HCC) 09/02/2024 Hypertension 09/02/2024 Sinus tachycardia 09/02/2024 Fall at home 09/10/2024 Extruding suture 09/25/2024 Lumbar radiculopathy 12/09/2024 Generalized anxiety disorder 12/12/2024 Obsessive-compulsive disorder 12/12/2024 Pelvic floor dysfunction 10/11/2024 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 Right ovarian cyst 12/12/2024 Morbid (severe) obesity due to excess calories ([facility]-HCC) 12/16/2024 Impaired fasting glucose 12/16/2024 Obesity, class 2 12/16/2024 Atypical migraine 12/29/2024 Resolved Ambulatory Problems Diagnosis Date Noted Abnormal ultrasound 09/23/2022 Diverticulitis 09/23/2022 Diverticulitis of large intestine without perforation or abscess without bleeding 09/23/2022 Maxillary sinusitis 09/23/2022 Sinusitis 09/23/2022 Obesity (BMI 30.0-34.9) 09/23/2022 Sciatica 09/23/2022 Smoker 09/23/2022 Tension headache 09/23/2022 Severe acute respiratory syndrome coronavirus 2 (SARS-CoV-2) detected 11/30/2022 Dysuria 12/12/2022 Urinary frequency 12/12/2022 UTI (urinary tract infection) 12/12/2022 Encounter for postoperative care 04/18/2023 Encounter for well adult exam without abnormal findings 12/04/2023 Injury of right ankle 02/06/2024 Sprain of anterior talofibular ligament of right ankle 04/01/2024 Knee laceration, left, sequela 09/10/2024 Laceration of right knee 09/10/2024 Past Medical History: Diagnosis Date Abnormal computed tomography angiography (CTA) of abdomen and pelvis 03/11/2019 Abnormal LFTs Abnormal liver ultrasound 06/15/2022 Ankle sprain 01/10/24 Asthma (HCC) COVID 03/11/2021 Delayed gastric emptying 09/12/2022 Gall stones Gestational hypertension ([facility]) H/O CT scan of chest 07/30/2018 Headache, tension-type 2024 HELLP syndrome ([facility]HCC) History of being hospitalized History of colonoscopy 05/28/2019 History of diagnostic ultrasound 03/23/2018 History of diagnostic ultrasound 12/10/2021 History of esophagogastroduodenoscopy 06/30/2022 History of esophagogastroduodenoscopy 08/31/2022 History of HIDA scan 08/28/2021 History of medical problems 03/18/2020 History of medical problems 08/16/2021 History of medical problems 06/10/2022 Influenza A 05/07/2017 Ingrown toenail 2015 Left ovarian cyst 03/01/2019 Pancreatitis ([facility]-HCC) Pap smear for cervical cancer screening 04/20/2022 Post depression Seizures ([facility]) 2002 Medications: Current Outpatient Medications: albuterol (2.5 MG/3ML) [...] 10mg daily, Disp: 30 capsule, Rfl: 0 buPROPion XL (Wellbutrin XL) 150 MG 24 hr tablet, Take 150 mg by mouth in the morning., Disp: , Rfl: Cariprazine HCl (Vraylar) 4.5 MG capsule, Take 1 capsule by mouth Daily, Disp: 100 capsule, Rfl: 3 citalopram (CeleXA) 10 MG tablet, 1 (one) time each day at the same time, Disp: , Rfl: dapagliflozin (Farxiga) 10 MG, Take 1 tablet (10 mg) by mouth Daily, Disp: 30 tablet, Rfl: 11 doxepin (SINEquan) 100 MG capsule, Take 2 capsules (200 mg) by mouth at bedtime, Disp: 60 capsule, Rfl: 0 escitalopram (Lexapro) 20 MG tablet, Take 20 mg by mouth Daily, Disp: , Rfl: Ptduswkyvvh-Enhikfsjq-Byjxsa (Trelegy Ellipta) 100-62.5-25 MCG/ACT aerosol powder , INHALE 1 PUFF DAILY, Disp: 60 each, Rfl: 2 LORazepam (Ativan) 0.5 MG tablet, Take 0.5 mg by mouth in the morning and 0.5 mg before bedtime., Disp: , Rfl: metoprolol succinate XL (Toprol-XL) 25 MG 24 hr tablet, Take 1 tablet (25 mg) by mouth Daily, Disp:100 tablet, Rfl: 3 montelukast (Singulair) 10 MG tablet, Take 1 tablet (10 mg) by mouth at bedtime, Disp: 30 tablet, Rfl: 11 ondansetron ODT (Zofran-ODT) 4 MG disintegrating tablet, Take 4 mg by mouth every 6 (six) hours if needed, Disp: , Rfl: OXcarbazepine (Trileptal) 300 MG tablet, Take 0.5 tablets (150 mg) by mouth at bedtime for 7 days, THEN 1 tablet (300 mg) at bedtime., Disp: 34 tablet, Rfl: 11 OXcarbazepine (Trileptal) 300 MG tablet, Take 1 tablet (300 mg) by mouth in the morning and 1 tablet (300 mg) before bedtime., Disp: 60 tablet, Rfl: 2 prazosin (Minipress) 2 MG capsule, Take 1 capsule (2 mg) by mouth in the morning and 1 capsule (2 mg) in the evening and 1 capsule (2 mg) before bedtime., Disp: 100 capsule, Rfl: 2 propranolol (Inderal) 10 MG tablet, every 12 (twelve) hours, Disp: , Rfl: Review of systems: Constitutional: Denies fever, chills, nausea, vomiting GI: Denies abdominal pain, cramping, loose stool, gastric ulcers Musculoskeletal: Denies low back pain, knee pain, systemic arthritis Neurologic: Denies burning, tingling, transient paralysis OBJECTIVE Physical Examination: DERM: Positive hair growth to b/l feet with good skin turgor noted. Negative openings in skin VASC: DP /PT were palpable bilateral. Capillary refill time < 3 seconds Digits 1-5 bilateral NEURO: Melvin Cullen 5.07 monofilament was intact B/L. Vibratory sensation was intact B/L Musculoskeletal: Muscle strength was +5 over 5 all intrinsic and extrinsic muscles tested. There isMild to moderate pain with direct palpation of the sinus tarsi pain with range of motion of the subtalar joint and ankle joint. Mild swelling noted over the sinus tarsi region. There is mild tenderness noted over the ATF and CF ligament Right foot. Unable to elicit an anterior drawer test secondaryto guarding. No crepitus noted with range of motion of the ankle or subtalar joint. Relates a 50 percent improvement Patient has a mild gastrocnemius-soleus equinus with mild tenderness noted at the level of the Achilles tendon. No palpable deficits noted within the Achilles tendon. No pain with range of motion of the ankle or subtalar joint. Diagnostic ultrasound: Diagnostic ultrasound 12 megahertz linear probe Hypoechoic capsulitis of thesinus tarsi region. With significant fluid collection noted within the subtalar joint and within the joint capsule of the subtalar joint. Unable to visualize the interosseous talocalcaneal ligament Ri ght foot also having synovitis of the ankle joint itself. ASSESSMENT 1. Right foot pain 2. Other enthesopathy of right foot and ankle PLAN The patient was educated on the etiology of sinus tarsi syndrome as well as capsulitis of the subtalar joint. Recommended a 2nd cortisone injection into the subtalar joint interosseous talocalcaneal ligament right. They are also instructed on rest and icing the on a regular basis as well. They are educated on the diagnostic ultrasound findings as well. The patient was given injection consisting of 1 cc of 2% lidocaine plain and 1 cc of Kenalog 10 via ultrasonic guidance into the subtalar joint capsule right foot. Ultrasound was necessary to ensure exact placement into the bursa /capsule. I discussed with the patient shoe gear modifications. As well as anti-inflammatory medications She may use her ASO brace p.r.n.. Continue with the anti-inflammatories she completed the steroid treatment no complications follow up 2 weeks JASON Conti documented in this encounter Plan of Treatment Upcoming Encounters Date Type Department Care Team (Late st Contact Info) Description 01/14/2025 6:00 PM EDT Ancillary Procedure [facility] [address] [place] [address] 01/15/2025 4:00 PM EDT Clinical Support [facility] [address] [place] [address] Milton Duvall, DPM [facility]FAS [facility] [place] [address] 02/28/2025 9:00 AM EST Office Visit [facility] [address] [facility] [address] [place] [address] Jatin Cabrera MD 135[address] [facility] [address] [id number] 03/18/2025 9:00 AM EST [facility] [address] [facility] [address] [place] [id number] Emerald Sanchez MD [address] [facility] [address] [place], [place] [id number] documented as of this encounter Goals Goal Patient Goal Type Associated Problems Recent Progress Patient-Stated? Author Help patient manage antidepressant medication Care Plan Patient on antidepressant monitoring plan No Emerald Sanchez MD Baseline PHQ-9 Care Plan Baseline PHQ-9 No Emerald Sanchez MD documented as of this encounter Visit Diagnoses Diagnosis Other synovitis and tenosynovitis, right ankle and foot- Primary Right foot pain Pain in soft tissues of limb Other enthesopathy of right foot and ankle documented in this encounter Additional Health Concerns Active Problems Noted Date Diagnosed Date Patient on antidepressant monitoring plan 2023 Baseline PHQ-9 05/08/2023 Assessment Noted Time PHQ-9 Depression Total Score: 18 062 025 11:34 AM EDT documented as of this encounter Care Teams Nut Sifter Relationship Specialty Start Date End Date Emerald Sanchez MD [address] [facility] [address] [place], [place] [phone] PCP - Medical [employer] 10/22/18 04/23/99 Emerald Sanchez MD [address] [place] [address] PCP - General Family Medicine 08/30/22 documented as of this encounter
--- OUTSIDE RECORDS SUMMARY | 2025-01-06 10:30 | XMS_ITS | Encounter Summary ---
Author Organization [facility] Address [address] [facility] [place] [address] Care Team Providers Care New Media Strategist Name Role Phone Emerald Sanchez MD Unavailable Emerald Sanchez MD Primary Care Provider [phone] Encounter Details Date Type Department Care Team (Late st Contact Info) Description 01/06/2025 10:30 AM EDT Office Visit [facility] [address] [facility] 110 [place] [phone] Emerald Sanchez MD 112 [facility] 110 [place] [address] Well adult health check (Primary Dx); Chest pain, unspecified type; Elevated liver enzymes; Type 2 diabetes mellitus without complication, without long-term current use of insulin (HCC) Social History Tobacco Use Types Packs/Day Years Used Date Smoking Tobacco: Every Day Cigarettes Smokeless Tobacco: Never Tobacco Cessation:Ready to Q uit: Not Asked; Counseling Given: Yes Alcohol Use Standard Drinks/Week Comments [...] often do you attend latter day or worship serv ices? Never 05/09/2024 Do you belong [...] Date Recorded Patient Health Questionnaire-2 Score 4 01/06/2025 [facility] [place] of Occupat ional Health - Occupational Stress [...] Sign Reading Time Taken Comments Blood Pressure 106/62 01/06/2025 11:01 AM EDT Pulse 90 01/06/2025 11:01 AM EDT Temperature - - Respiratory Rate 16 01/06/2025 11:01 AM EDT Oxygen Saturation 97% 01/06/2025 11:01 AM EDT Inhaled Oxygen Concentration - - Weight 96.2 kg (212 lb) 01/06/2025 11:01 AM EDT Height 157.5 cm (5' 2 ) 01/06/2025 11:01 AM EDT Body Mass Index 38.78 01/06/2025 11:01 AM EDT documented in this encounter Functional Status * Over the past 2 weeks, how often have you been bothered by any of the following problems? Question Answer Date of Assessment Author Little interest or pleasure in doing things More than half the days 01/06/2025 10:55 AM BALDO RUIZ Feeling down, depressed, or hopeless More than half the days 01/06/2025 10:55 AM BALDO RUIZ Patient Health Questionnaire-2 Score 4 01/06/2025 10:55 AM BALDO RUIZ * Question Answer Date of Assessment Author Trouble falling or staying asleep, or sleeping too much More than half the days 01/06/2025 10:55 AM BALDO RUIZ Feeling tired or having little energy More than half the days 01/06/2025 10:55 AM BALDO RUIZ Poor appetite or overeating More than henderson lf the days 01/06/2025 10:55 AM BALDO RUIZ Feeling bad about yourself - or that you are a failure or have let yourself or your family down Several days 01/06/2025 10:55 AM BALDO RUIZ Trouble concentrating on things, such as reading the newspaper or watching television More than half the days 01/06/2025 10:55 AM BALDO RUIZ Moving or speaking so slowly that other people could have noticed? Or the opposite - being so fidgety or restless that you have been moving around a lot more than usual. Not at all 01/06/2025 10:55 AM BALDO RUIZ Thoughts that you would be better off or hurting yourself in some way Not at all 01/06/2025 10:55 AM BALDO RUIZ Patient Health Questionnaire-9 Score 13 01/06/2025 10:55 AM BALDO RUIZ * If you checked off any problems on this questionnaire so far, Question Answer Date of Assessment Author How difficult have these pro blems made it for you to do your work, take care of things at home, or get along with other people? Very difficult 01/06/2025 10:55 AM EDT BALDO STRONG documented as of this encounter Progress Notes * Emerald Sanchez MD - 01/06/2025 11:42 AM EDTAssociated Problem(s): Type 2 diabetes mellitus without complication, without long-term current useof insulin (HCC) Last A1c was 8.5 * Emerald Sanchez MD - 01/06/2025 11:35 AM EDTAssociated Problem(s): Chest pain Stress Echo last year from Pepcichika AC twice a day * Emerald Sanchez MD - 01/06/2025 11:34 AM EDTAssociated Problem(s): Well adult health check Modest Alcohol consumption No Tobacco Seat Belt use Exercise Regularly No Text Drive Social Accountability * Emerald Sanchez MD - 01/06/2025 10:30 AM EDT Subjective Patient ID: Belgica Barnett is a 34 y.o. female who presents for a wellness. Belgica presents today for a yearly wellness. Patient was seen in the [facility] this morning for having chest pain, they wanted to admit her for a stress test. She told them she was being seen today in the office with her PCP. She is feeling much better now. The chest pain is gone. They did to an EKG this morning. Stress Echo last year, But never informed of official results. Sleeping and felt like heart burn symptoms. Woke up with intensity. Made SOB and Dizzy. Had EKG and labs Over the past 2 weeks, how often [...] or staying asleep, or sleeping too much: More than half the days Feeling tired or having little energy: More than half the days Poor appetite or overeating: More than half the days Feeling bad about yourself - or that you are a failure or have let yourself or your family down: Several days Trouble concentrating on things, such as reading the newspaper or watching television: More than half the days Moving or speaking so slowly that other people could have noticed? Or the opposite - being so fidgety or restless that you have been moving around a lot more than usual.: Not at all Thoughts that you would be better off or hurting yourself in some way: Not at all Patient Health Questionnaire-9 Score: 13 If you checked off any problems on [...] time each day at the same time dapagliflozin (Farxiga) 10 MG Take 1 tablet (10 mg) by mouth Daily 30 tablet 11 doxepin (SINEquan) 100 MG capsule Take 2 capsules (200 mg) by mouth at bedtime 60 capsule 0 escitalopram (Lexapro) 20 MG tablet Take 20 mg by mouth Daily Vgveqlngfbm-Qhtklesxq-Fcofli (Trelegy Ellipta) 100-62.5-25 MCG/ACT aerosol powder INHALE [...] (300 mg) at bedtime. 34 tablet 11 OXcarbazepine (Trileptal) 300 MG tablet Take 1 tablet (300 mg) by mouth in the morning and 1 tablet(300 mg) before bedtime. 60 tablet 2 prazosin (Minipress) 2 MG capsule Take 1 capsule (2 mg) by mouth in the morning and 1 capsule (2 mg) in the evening and 1 capsule (2 mg) before bedtime. 100 capsule 2 propranolol (Inderal) 10 MG tablet every 12 (twelve) hours No current facility-administered medications on file prior [...] (Benadryl) Social History Tobacco Use Smoking status: Every Day Types: Cigarettes Smokeless tobacco: Never Vaping Use [...] nodule Stable Influenza A 05/07/2017 Ingrown toenail 2015 Left ovarian cyst 03/01/2019 simple cyst 1.2 [...] 02/10/2023 TOENAIL EXCISION 2017 Visit Vitals BP 106/62 Pulse 90 Resp 16 Ht 5' 2 Wt 212 lb LMP (LMP Unknown) Comment: partial hysterectomy 05/2016 SpO2 97% BMI 38.78 kg/m?? OB Status Hysterectomy Smoking Status Every Day BSA 2.05 m?? Review of Systems Constitutional: Negative for chills, fatigue, fever and unexpected weight change. Respiratory: Negative for cough. Cardiovascular: Negative for chest pain. Gastrointestinal: Positive for constipation. Negative for abdominal pain, blood in stool, diarrhea,nausea and vomiting. Last BM yesterday Genitourinary: Negative for dysuria, enuresis, frequency and hematuria. Musculoskeletal: Negative for back pain. Neurological: Positive for dizziness. Negative for tremors, syncope, facial asymmetry and speech difficulty. Psychiatric/Behavioral: Negative for agitation, behavioral problems, confusion and dysphoric mood. The patient is not nervous/anxious. Objective Physical Exam Vitals reviewed. Constitutional: General: She is not in acute distress. Appearance: Normal appearance. HENT: Head: Normocephalic. Right Ear: Tympanic membrane, ear canal and external ear normal. Left Ear: Tympanic membrane, ear canal and external ear normal. Nose: Nose normal. Mouth/Throat: Mouth: Mucous membranes are moist. Eyes: Extraocular Movements: Extraocular movements intact. Conjunctiva/sclera: Conjunctivae normal. Pupils: Pupils are equal, round, and reactive to light. Neck: Vascular: No carotid bruit. Cardiovascular: Rate and Rhythm: Normal rate and regular rhythm. Pulses: Normal pulses. Heart sounds: Normal heart sounds. Pulmonary: Effort: Pulmonary effort is normal. No respiratory distress. Breath sounds: Normal breath sounds. Abdominal: General: Abdomen is flat. Bowel sounds are normal. Palpations: Abdomen is soft. Tenderness: There is no abdominal tenderness. Musculoskeletal: General: Normal range of motion. Cervical back: Normal range of motion and neck supple. Skin: General: Skin is warm and dry. Capillary Refill: Capillary refill takes 2 to 3 seconds. Neurological: General: No focal deficit present. Mental Status: She is alert and oriented to person, place, and time. Psychiatric: Mood and Affect: Mood normal. Assessment/Plan Problem List Items Addressed This Visit Elevated liver enzymes Well adult health check - Primary Modest Alcohol consumption No Tobacco Seat Belt use Exercise Regularly No Text Drive Social Accountability Chest pain Stress Echo last year from [facility] Pepcid AC twice a day Type 2 diabetes mellitus without complication, without long-term current use of insulin (HCC) Last A1c was 8.5 No follow-ups on file. documented in this encounter Plan of Treatment Upcoming Encounters Date Type Department Care Team (Late st Contact Info) Description 01/14/2025 6:00 PM EDT Ancillary Procedure [facility] [address] [facility] [place] [address] 01/15/2025 4:00 PM EDT Clinical Support [facility] [address] [facility] [place] [address] Milton Duvall, DPM FACFAS 368 [facility] [place] [address] 02/28/2025 9:00 AM EST Office Visit [facility] [address] [facility] 310 [place] [address] Jatin Cabrera MD 3[address] [facility] [address] [id number] 03/18/2025 9:00 AM EST Office Visit [facility] [place] [facility] 112 [facility] 110 [place] [phone] Emerald Sanchez MD 112 [facility] 110 [place] [address] documented as of this encounter Goals Goal Patient Goal Type Associated Problems Recent Progress Patient-Stated? Author Help patient manage antidepressant medication Care Plan Patient on antidepressant monitoring plan No Emerald Sanchez MD Baseline PHQ-9 Care Plan Baseline PHQ-9 No Emerald Sanchez MD documented as of this encounter Visit Diagnoses Diagnosis Well adult health check- Primary Unspecified general medical examination Chest pain, unspecified type Elevated liver enzymes Other nonspecific abnormal serum enzyme levels Type 2 diabetes mellitus without complication, without long-term current use of insulin (HCC) documented in this encounter Additional Health Concerns Active Problems Noted Date Diagnosed Date Patient on antidepressant monitoring plan 2023 Baseline PHQ-9 05/08/2023 Assessment Noted Time PHQ-9 Depression Total Score: 13 025 10:55 AM EDT documented as of this encounter Care Teams New Media Strategist Relationship Specialty Start Date End Date Emerald Sanchez MD 112 [facility] 110 [place] [address] PCP - Medical [place] Commercial 10/22/18 04/23/99 Emerald Sanchez MD 112 [facility] 110 [place] [address] PCP - General Family Medicine 08/30/22 documented as of this encounter
--- OUTSIDE RECORDS SUMMARY | 2025-01-09 12:11 | XMS_ITS | Encounter Summary ---
Author Organization [facility] Address [address] [facility] [place] [address] Care Team Providers Care Data Reporting Analyst Name Role Phone Emerald Sanchez MD Unavailable Emerald Sanchez MD Primary Care Provider Encounter Details Date Type Department Care Team (Late st Contact Info) Description 04/03/2024 Abstract [facility] [place] [facility] [address] [facility] 110 [place] [address] Emerald Sanchez MD [address] [place] [address] [place] [address] Social History Tobacco Use Types Packs/Day Years [...] often do you attend chur ch or jainism services? Never 04/18/2023 Do you belong to [...] 6:00 PM EDT Ancillary Procedure [facility] [address] [place] [address] 01/15/2025 4:00 PM EDT Clinical Support [facility] 368 [place] [phone] Milton Duvall, DPM FACFAS 368 [place] [address] 02/28/2025 9:00 AM EST Office Visit [facility] [address] [facility] 310 [place] [address] Jatin Cabrera MD 7771 [facility] [address] [id number] 03/18/2025 9:00 AM EST Office Visit [facility] 112 [facility] 110 [place] [address] Emerald Sanchez MD [address] [facility] 110 [place] [address] documented as of this encounter Goals Goal [...] documented as of this encounter Care Teams Data Reporting Analyst Relationship Specialty Start Date End Date Emerald Sacnhez MD [address] [facility] [facility] 110 [place] [address] PCP - Medical [place] Commercial 10/22/18 04/23/99 Emerald Sanchez MD [address] [place] 110 [place] [address] PCP - General Family Medicine 08/30/22 documented as of this encounter
--- OUTSIDE RECORDS SUMMARY | 2025-01-09 12:11 | XMS_ITS | Encounter Summary ---
Author Organization [facility] Address [address] [place] [address] Care Team Providers Care Channeler Runner Name Role Phone Emerald Sanchez MD Unavailable Emerald Sanchez MD Primary Care Provider [phone] Encounter Details Date Type Department Care Team (Late st Contact Info) Description 03/20/2023 Orders Only [facility] [place] [facility] 112 [facility] 110 [place] [address] A, Unknown Practice [address] [place], [place] [phone] Social History Tobacco Use Types Packs/Day Years [...] Procedure [facility] [address] [place] [address] 01/15/2025 4:00 PM EDT Clinical Support [facility] 368 [facility] [place] [address] Milton Duvall, DPM FACFAS 368 [facility] [place] [address] 02/28/2025 9:00 AM EST Office Visit [facility] [address] [facility] 310 [place] [address] Jatin Cabrera MD 7000 [facility] [address] [address] 03/18/2025 9:00 AM EST Office Visit [facility] [place] [facility] [address] [place] 110 [place] [address] Emerald Sanchez MD 112 [facility] 110 [place] [address] documented as of this encounter Procedures Procedure [...] on filedocumented in this encounter Care Teams Channeler Runner Relationship Specialty Start Date End Date Emerald Sanchez MD 112 [facility] 110 [place] [address] PCP - Medical [place] Commercial 10/22/18 04/23/99 Emerald Sanchez MD 112 [facility] 110 [place] [address] PCP - General Family Medicine 08/30/22 documented as of this encounter
--- OUTSIDE RECORDS SUMMARY | 2025-01-09 12:11 | XMS_ITS | Encounter Summary ---
Author Organization [facility] Address [address] [facility] [place] [address] Care Team Providers Care Pick Remover Name Role Phone Emerald Sanchez MD Unavailable Emerald Sanchez MD Primary Care Provider Encounter Details Date Type Department Care Team (Late st Contact Info) Description 09/02/2024 Abstract [facility] [place] [facility] [address] [facility] 110 [place] [address] Emerald Sanchez MD [address] [place] 110 [place] [address] Social History Tobacco Use Types Packs/Day Years [...] How often do you attend buddhism or voodoo serv ices? Never 05/09/2024 Do you belong [...] Recorded Patient Health Questionnaire-2 Score 0 09/02/2024 [facility] of Occupat ional Health [...] any time in the past 12 m [facility], were you homeless or living [...] [facility] [address] [place] [address] 01/15/2025 4:00 PM EDT Clinical Support [facility] [address] [place] [address] Milton Duvall, DPM FACFAS 368 [facility] [place] [address] 02/28/2025 9:00 AM EST Office Visit [facility] [address] [facility] 310 [place] [address] Jatin Cabrera MD 9893 [facility] [address] [id number] 03/18/2025 9:00 AM EST Office Visit [facility] [facility] [address] [facility] 110 [place] [address] Emerald Sanchez MD 112 [facility] 110 [place] [address] documented as of this encounter Goals Goal [...] documented as of this encounter Care Teams Pick Remover Relationship Specialty Start Date End Date Emerald Sanchez MD 112 [facility] 110 [place] [address] PCP - Medical [place] Commercial 10/22/18 04/23/99 Emerald Sanchez MD 112 [facility] 110 [place] [address] PCP - General Family Medicine 08/30/22 documented as of this encounter
--- OUTSIDE RECORDS SUMMARY | 2025-01-09 12:11 | XMS_ITS | Encounter Summary ---
Author Organization [facility] Address [address] [place] [address] Care Team Providers Care Chlorine Plant Operator Name Role Phone Emerald Sanchez MD Unavailable Emerald Sanchez MD Primary Care Provider [phone] Encounter Details Date Type Department Care Team (Late st Contact Info) Description 04/11/2023 Orders Only [facility] 112 [facility] 110 [place] [address] A, Unknown Practice [address] [place], [place] [phone] Social History Tobacco Use Types Packs/Day Years [...] [facility] [address] [place] [address] 01/15/2025 4:00 PM EDT Clinical Support [facility] 368 [facility] [place] [address] Milton Duvall, DPM FACFAS 368 [facility] [place] [address] 02/28/2025 9:00 AM EST Office Visit [facility] [facility] [address] [place] 310 [place] [address] Jatin Cabrera MD 4803 [facility] [address] [address] 03/18/2025 9:00 AM EST Office Visit [facility] [place] [facility] [address] [facility] 110 [place] [address] Emerald Sanchez MD 112 [facility] 110 [place] [address] documented as of this encounter Procedures Procedure Name Priority Date/Time Associated Diagnosis Comments SCANNED LABS Routine 04/11/2023 1:27 PM EST documented in this encounter Results * SCANNED LABS (04/11/2023 1:27 PM EST) us Unknown Practice A LAB CHG PERFORMABLES Final Re sult documented in this encounter Visit Diagnoses Not on filedocumented in this encounter Care Teams Chlorine Plant Operator Relationship Specialty Start Date End Date Emerald Sanchez MD 112 [facility] 110 [place] [address] PCP - Medical [place] Commercial 10/22/18 04/23/99 Emerald Sanchez MD 112 [place] 110 [place] [address] PCP - General Family Medicine 08/30/22 documented as of this encounter
--- OUTSIDE RECORDS SUMMARY | 2025-01-09 12:11 | XMS_ITS | Encounter Summary ---
Author Organization [facility] Address [address] [place] [address] Care Team Providers Care Sales Demonstrator Name Role Phone Emerald Sanchez MD Unavailable Emerald Sanchez MD Primary Care Provider [phone] Encounter Details Date Type Department Care Team (Late st Contact Info) Description 03/22/2023 Abstract [facility] [place] [address] [facility] 110 [place] [address] Emerald Sanchez MD [address] [place] 110 [place] [address] Social History Tobacco Use Types Packs/Day Years [...] Procedure [facility] [facility] [address] [place] [address] 01/15/2025 4:00 PM EDT Clinical Support [facility] 368 [facility] [place] [address] Milton Duvall, DPM FACFAS 368 [facility] [place] [address] 02/28/2025 9:00 AM EST Office Visit [facility] [address] [place] 310 [place] [address] Jatin Cabrera MD 6846 [facility] [address] [address] 03/18/2025 9:00 AM EST Office Visit [facility] [place] [facility] [address] [facility] 110 [place] [address] Emerald Sanchez MD 112 [address] [facility] 110 [place] [address] documented as of this encounter Visit Diagnoses Not on filedocumented in this encounter Care Teams Sales Demonstrator Relationship Specialty Start Date End Date Emerald Sanchez MD [address] [facility] 110 [place] [address] PCP - Medical [place] Commercial 10/22/18 04/23/99 Emerald Sanchez MD [address] [facility] 110 [place] [address] PCP - General Family Medicine 08/30/22 documented as of this encounter
--- OUTSIDE RECORDS SUMMARY | 2025-01-09 12:11 | XMS_ITS | Encounter Summary ---
Author Organization [facility] Address [address] [place] [address] Care Team Providers Care Chemical Strength Tester Name Role Phone Emerald Sanchez MD Unavailable Emerald Sanchez MD Primary Care Provider [phone] Encounter Details Date Type Department Care Team (Late st Contact Info) Description 03/22/2023 Abstract [facility] [place] [facility] [address] [facility] 110 [place] [address] Emeradl Sanchez MD [address] [place] 110 [place] [address] Social History Tobacco Use Types Packs/Day Years [...] Procedure [facility] [address] [place] [address] 01/15/2025 4:00 PM EDT Clinical Support [facility] 368 [facility] [place] [address] Milton Duvall, DPM FACFAS 368 [facility] [place] [address] 02/28/2025 9:00 AM EST Office Visit [facility] [facility] [address] [facility] 310 [place] [address] Jatin Cabrera MD 2331 [facility] [address] [address] 03/18/2025 9:00 AM EST Office Visit [facility] [place] [facility] [address] [facility] 110 [place] [address] Emerald Sanchez MD 112 [facility] 110 [place] [address] documented as of this encounter Visit Diagnoses Not on filedocumented in this encounter Care Teams Chemical Strength Tester Relationship Specialty Start Date End Date Emerald Sanchez MD 112 [facility] 110 [place] [address] PCP - Medical [place] Commercial 10/22/18 04/23/99 Emerald Sanchez MD 112 [facility] 110 [place] [address] PCP - General Family Medicine 08/30/22 documented as of this encounter
--- OUTSIDE RECORDS SUMMARY | 2025-01-09 12:11 | XMS_ITS | Encounter Summary ---
Author Organization [facility] Address [address] [facility] [place] [address] Care Team Providers Care Track Surfacing Machine Operator Name Role Phone Emerald Hagen MD Unavailable Emerald Hagen MD Primary Care Provider [phone] Encounter Details Date Type Department Care Team [...] week 04/18/2023 How often do you attend [facility] or alevism services? Never 04/18/2023 Do you belong to [...] Ancillary Procedure [facility] [address] [facility] [place] [address] 01/15/2025 4:00 PM EDT Clinical Support [facility] 368 [place] [address] Milton Duvall, DPM FACFAS 368 [place] [address] 02/28/2025 9:00 AM EST Office Visit [facility] [address] [facility] 310 [place] [address] Jatin Cabrera MD 8641 [facility] [address] [address] 03/18/2025 9:00 AM EST Office Visit [facility] [place] [facility] [address] [facility] 110 [place] [address] Emerald Hagen MD [address] [facility] 110 [place], [place] [address] documented as of this encounter Goals Goal [...] AM EST Narrative 03/17/2024 9:11 [place] [address] Magnetic Resonance Report Signed Patient: BELGICA BARNETT MR#: [id number] : 1990 Acct:[id number] Age/Sex: 33 / F ADM Date: 03/14/24 Loc: MRI Attending Dr: Laurie Navas M.D. Ordering Physician: Laurie Navas M.D. Date of Service: 03/14/24 Procedure(s): MR ankle RT wo con Accession Number(s): [id number] cc: EMERALD HAGEN ; Laurie Navas M.D. [address] [address] Patient Name: BELGICA BARNETT MRN: [id number] date: 1990 Sex: F Assigned Patient Location: MRI Current Patient Location: Accession/Order Number: [id number] Exam Date: 03/14/2024 15:04 Report Date: 03/17/2024 [...] M.D. Signed By: 03/17/24910 DD/ 7 TD/TT: Systems Management Consultant: Procedure Note Radiology, Radiologist, MD - 03/17/2024 [place] [address] Magnetic Resonance Report Signed Patient: BELGICA BARNETT [facility]#: [id number] : 1990Acct:[id number] Age/Sex: 33 / FADM Date: 03/14/24 Loc: MRI Attending Dr: Laurie Navas M.D. Ordering Physician: Laurie Navas M.D. Date of Service: 03/14/24 Procedure(s): MR ankle RT wo con Accession Number(s): [id number] cc: EMERALD HAGEN ; Laurie Navas M.D. The [place] [id number] Patient Name: BELGICA BARNETT MRN: [id number] date: 1990 Sex: F Assigned Patient Location: MRI Current Patient Location: Accession/Order Number: [id number] Exam Date: 03/14/2024 15:04 Report Date: 03/17/2024 [...] Saucedo M.D. Signed By:03/17/24910 DD/ 7 TD/TT: Systems Management Consultant: us Generic External Data Provider IMG MRI PROCEDURE S Final Result documented in this encounter Visit Diagnoses Not on filedocumented in this encounter Additional Health Concerns Active Problems Noted Date Diagnosed Date Patient on antidepressant monitoring plan 2023 Baseline PHQ-9 05/08/2023 documented as of this encounter Care Teams Track Surfacing Machine Operator Relationship Specialty Start Date End Date Emerald Hagen MD 112 [facility] 110 [place] [address] PCP - Medical [place] [employer] 10/22/18 04/23/99 Emerald Hagen MD 112 [facility] 110 [place] [address] PCP - General Family Medicine 08/30/22 documented as of this encounter
--- OUTSIDE RECORDS SUMMARY | 2025-01-09 12:11 | XMS_ITS | Encounter Summary ---
Author Organization [facility] Address [address] [place] [address] Care Team Providers Care Homeworker Name Role Phone Emerald Sanchez MD Unavailable Emerald Sanchez MD Primary Care Provider [phone] Encounter Details Date Type Department Care Team (Late st Contact Info) Description 03/21/2023 Abstract [facility] [address] [facility] 110 [place] [address] Emerald Sanchez MD [address] [place] [address] [place] [address] Social History Tobacco Use Types Packs/Day Years [...] Procedure [facility] [address] [place] [address] 01/15/2025 4:00 PM EDT Clinical Support [facility] [address] [facility] [place] [address] Milton Duvall, DPM FACFAS 368 [facility] [place] [address] 02/28/2025 9:00 AM EST Office Visit [facility] [address] [facility] 310 [place] [address] Jatin Cabrera MD 4554 [facility] [address] [address] 03/18/2025 9:00 AM EST Office Visit [facility] [address] [facility] 110 [place] [address] Emerald Sanchez MD [address] [place] [facility] 110 [place] [address] documented as of this encounter Visit Diagnoses Not on filedocumented in this encounter Care Teams Homeworker Relationship Specialty Start Date End Date Emerald Sanchez MD [address] [place] [facility] 110 [place] [address] PCP - Medical [place] [employer] 10/22/18 04/23/99 Emerald Sanchez MD [address] [place] [facility] 110 [place] [address] PCP - General Family Medicine 08/30/22 documented as of this encounter
--- OUTSIDE RECORDS SUMMARY | 2025-01-09 12:11 | XMS_ITS | Encounter Summary ---
Author Organization [facility] Address [address] [place] [address] Care Team Providers Care Associate Manager Affiliate Marketing Name Role Phone Emerald Sanchez MD Unavailable Emerald Sanchez MD Primary Care Provider [phone] Encounter Details Date Type Department Care Team (Late st Contact Info) Description 03/24/2023 Abstract [facility] [address] [facility] 110 [place] [address] Emerald Sanchez MD [address] [place] [address] [place] [address] Social History Tobacco Use Types Packs/Day Years [...] Procedure [facility] [address] [place] [address] 01/15/2025 4:00 PM EDT Clinical Support [facility] [address] [facility] [place] [address] Milton Duvall, DPM FACFAS 368 [facility] [place] [address] 02/28/2025 9:00 AM EST Office Visit [facility] [address] [facility] 310 [place] [address] Jatin Cabrera MD 6196 [facility] [address] [address] 03/18/2025 9:00 AM EST Office Visit [facility] [address] [facility] 110 [place] [address] Emerald Sanchez MD [address] [place] [facility] 110 [place] [address] documented as of this encounter Visit Diagnoses Not on filedocumented in this encounter Care Teams Associate Manager Affiliate Marketing Relationship Specialty Start Date End Date Emerald Sanchez MD [address] [place] [facility] 110 [place] [address] PCP - Medical [place] Commercial 10/22/18 04/23/99 Emerald Sanchez MD [address] [place] [facility] 110 [place] [address] PCP - General Family Medicine 08/30/22 documented as of this encounter
--- OUTSIDE RECORDS SUMMARY | 2025-01-09 12:11 | XMS_ITS | Encounter Summary ---
Author Organization [facility] Address [address] [place] [address] Care Team Providers Care Project Management Professor Name Role Phone Emerald Sanchez MD Primary Care Provider [phone] Deena Osorio SEAL MIXER Unavailable [phone] Darwin Starr DO Unavailable [phone] Source Comments In the event this information is protected by the Federal Confidentiality of Alcohol and Drug AbusePatient Records regulations: The Federal rules restrict any use of the information to criminally investigate or prosecute any alcohol or drug abuse patient.[facility] Reason for Referral * Diagnostic Procedure Only (Routine) - Closed Specialty Diagnoses / Procedures Referred By Contac t Referred To Contact [facility] Diagnoses Elevated LFTs Procedures US ABD RT UPPER QUADRANT US ABDOMINAL REAL [place] W/[place] [address] [place] [address] Phone: tel: fax: [place] [address] Referral ID Status Reason Start Date Expiration Date V isits Requested Visits Authorized [id number] Closed Auto-Generate d Referral 11/24/2021 12/24/2022 1 1 Encounter Details Date Type Department Care Team (Late st Contact Info) Description 11/23/2021 Get Medical Advice Gastroenterology [address] [place] [address] Provider, [facility] [...] N ot on file 04/02/2020 Data from: [email or web address] Last address used for calculation Not [...] documented in this encounter Plan of Treatment Not on file documented as of this encounter Results * US ABD RT UPPER QUADRANT (12/10/2021 2:33 PM EDT) Anatomical Region Laterality Modality Abdomen Ultrasound 12/10/2021 2:33 PM EDT Impressions 12/10/2021 2:47 PM EDT IMPRESSION: 1. Hepatic steatosis and a liver cyst. There are no gallstones or biliary dilatation. Retail Aide: MINAL Transcribe Date/Time: Dec 10 2021 2:42P Dictated by : CANDIDA COYLE MD This examination was interpreted and the report reviewed and electronically signed by: CANDIDA COYLE MD on Dec 10 2021 2:44PM EST Narrative 12/10/2021 2:47 PM EDT * * *Final Report* * * DATE OF EXAM: Dec 10 2021 2:33PM [facility] 1032 - US ABD RIGHT UPPER [...] no focal lesions identified. Procedure Note Provider, [facility] [place] - 12/10/2021 * * *Final Report* * * DATE OF EXAM: Dec 10 2021 2:33PM [facility] 1032 - US ABD RIGHT UPPER [...] There are no gallstones or biliary dilatation. Retail Aide[facility] Transcribe Date/Time: Dec 10 2021 2:42P Dictated by : CANDIDA COYLE MD This examination was interpreted and the report reviewed and electronically signed by: CANDIDA COYLE MD on Dec 10 2021 2:44PM EST us Grayson Peter MD US-PAMA Final Result documented in this encounter Visit Diagnoses Diagnosis Elevated LFTs- Primary Other abnormal blood chemistry Elevated LFTs Other abnormal blood chemistry documented in this encounter Additional Health Concerns Infection Onset Date Last Indicated Resolved Time C. difficile 05/22/2024 05/22/2024 06/21/2024 8:51 PM EST documented as of this encounter Care Teams Project Management Professor Relationship Specialty Start Date End Date Emerald Sanchez MD [address] [facility] 110 [place] [address] PCP - General Family Medicine 03/27/19 Deena Osorio APRN [address] [facility] 110 [place], [place] [address] Referring Family Medicine 04/03/24 Darwin Starr DO [address] [place] [address] Dr Carlyle Mancuso, [place] [address] Referring Plant Inspector 07/02/24 documented as of this encounter
--- OUTSIDE RECORDS SUMMARY | 2025-01-09 12:11 | XMS_ITS | Encounter Summary ---
Author Organization [facility] Address [address] [place] [address] Care Team Providers Care Optical Worker Name Role Phone Emerald Sanchez MD Unavailable Emerald Sanchez MD Primary Care Provider [phone] Encounter Details Date Type Department Care Team (Late st Contact Info) Description 03/21/2023 Abstract [facility] [address] [facility] 110 [place] [address] Emerald Sanchez MD [address] [place] [address] [place] [address] Social History Tobacco Use Types Packs/Day Years [...] Procedure [facility] [address] [place] [address] 01/15/2025 4:00 PM EDT Clinical Support [facility] [address] [facility] [place] [address] Milton Duvall, DPM FACFAS 368 [facility] [place] [address] 02/28/2025 9:00 AM EST Office Visit [facility] [address] [facility] 310 [place] [address] Jatin Cabrera MD 9254 [facility] [address] [address] 03/18/2025 9:00 AM EST Office Visit [facility] [address] [facility] 110 [place] [address] Emerald Sanchez MD [address] [place] [facility] 110 [place] [address] documented as of this encounter Visit Diagnoses Not on filedocumented in this encounter Care Teams Optical Worker Relationship Specialty Start Date End Date Emerald Sanchez MD [address] [place] [facility] 110 [place] [address] PCP - Medical [place] Commercial 10/22/18 04/23/99 Emerald Sanchez MD [address] [place] [facility] 110 [place] [address] PCP - General Family Medicine 08/30/22 documented as of this encounter
--- OUTSIDE RECORDS SUMMARY | 2025-01-09 12:11 | XMS_ITS | Encounter Summary ---
Author Organization [facility] Address [address] [place] [address] Care Team Providers Care Operations Consultant Name Role Phone Emerald Sanchez MD Unavailable Emerald Sanchez MD Primary Care Provider [phone] Encounter Details Date Type Department Care Team (Late st Contact Info) Description 05/02/2024 Abstract [facility] [place] [facility] [address] [facility] 110 [place] [address] Emerald Sanchez MD [address] [place] [address] [place] [address] Social History Tobacco Use Types Packs/Day Years [...] often do you attend chur ch or methodist services? Never 04/18/2023 Do you belong to [...] 6:00 PM EDT Ancillary Procedure [facility] [address] [place] [place] [address] 01/15/2025 4:00 PM EDT Clinical Support [facility] POD 368 [place] [address] Milton Duvall, DPM FACFAS 368 [place] [address] 02/28/2025 9:00 AM EST Office Visit [facility] [address] [facility] 310 [place] [address] Jatin Cabrera MD 7976 [facility] [address] [address] 03/18/2025 9:00 AM EST Office Visit [facility] 112 [facility] 110 [place] [address] Emerald Sanchez MD [address] [facility] 110 [place] [address] documented as of this encounter Goals Goal [...] documented as of this encounter Care Teams Operations Consultant Relationship Specialty Start Date End Date Emerald Sanchez MD [address] [facility] 110 [place] [address] PCP - Medical [place] Commercial 10/22/18 04/23/99 Emerald Sanchez MD [address] [place] [address] [place] [address] PCP - General Family Medicine 08/30/22 documented as of this encounter
--- OUTSIDE RECORDS SUMMARY | 2025-01-09 12:11 | XMS_ITS | Encounter Summary ---
Author Organization [facility] Address [address] [facility] [place] [address] Care Team Providers Care Printed Circuit Boards Inspector Name Role Phone Emerald Sanchez MD Unavailable Emerald Sanchez MD Primary Care Provider [phone] Encounter Details Date Type Department Care Team (Late st Contact Info) Description 08/27/2024 Abstract [facility] [place] [facility] [address] [facility] 110 [place] [address] Emerald Sanchez MD [address] [place] [address] [place] [address] Social History Tobacco Use Types Packs/Day Years [...] week 05/09/2024 How often do you attend alevism or baptism serv ices? Never 05/09/2024 Do you belong [...] Recorded Patient Health Questionnaire-2 Score 0 08/01/2024 [facility] - Occupational [...] Ancillary Procedure [facility] [address] [place] [address] 01/15/2025 4:00 PM EDT Clinical Support [facility] 368 [facility] [place] [address] Milton Duvall, DPM FACFAS 368 [facility] [place] [address] 02/28/2025 9:00 AM EST Office Visit [facility] [address] [facility] 310 [place] [address] Jatin Cabrera MD 8687 [facility] [address] [address] 03/18/2025 9:00 AM EST Office Visit [facility] [place] [facility] [address] [facility] 110 [place] [address] Emerald Sanchez MD [address] [facility] 110 [place] [address] documented as of this encounter Goals Goal [...] documented as of this encounter Care Teams Printed Circuit Boards Inspector Relationship Specialty Start Date End Date Emerald Sanchez MD [address] [facility] 110 [place] [address] PCP - Medical [place] Commercial 10/22/18 04/23/99 Emerald Sanchez MD [address] [facility] 110 [place] [address] PCP - General Family Medicine 08/30/22 documented as of this encounter
--- OUTSIDE RECORDS SUMMARY | 2025-01-09 12:11 | XMS_ITS | Clinical Summary ---
Author Organization [facility] Address [address] [place] [id number] Care Team Providers Care Parts Specialist Name Role Phone Emerald Sanchez MD Primary Care Provider [phone] Deena Osorio DOOR MACHINE OPERATOR Unavailable [phone] Darwin Starr DO Unavailable [phone] Allergies Active Allergy Reactions Criticality Noted [...] by mouth two times a day. 0 9 Active cariprazine (VRAYLAR) 4.5 mg capsule Take 4.5 mg by mouth once daily. Active amphetamine-dex troamphetamine XR (ADDERALL XR) 30 mg capsule Take 30 mg by mouth once daily. Active escitalopram oxalate (LEXAPRO) 20 mg tablet Take 20 mg by mouth every morning. Active montelukast (SINGULAIR) 10 mg tablet Take 10 mg by mouth daily at bedtime. Active fluticasone/ume clidin/vilanter (TRELEGY ELLIPTA INHALATION) Inhale as instructed. Active metoprolol succinate ER (TOPROL XL) 25 mg 24 hr tabletIndicatio ns:Palpitation Take 1 tablet by mouth once daily. 30 tablet 2 5 Active clonazePAM (KLONOPIN) 0.5 mg tablet Take 1 mg by mouth. 4 Active cyclobenzaprine (FLEXERIL) 5 mg tablet take 1 tablet by mouth three times a day for 14 days 5 Active FARXIGA 10 mg tablet Take 10 mg by mouth once daily. Active diclofenac, EC, (VOLTAREN) 75 mg EC tablet 1 tab(s) orally 2 times a day for 30 day(s) 4 Active doxepin capsule 100 mg take 2 capsules (200 mg) by mouth at bedtime Active traMADol (ULTRAM) 50 mg tablet Take by mouth. 3 Active tiZANidine (ZANAFLEX) 4 mg tablet 5 Active propranolol (INDERAL) 10 mg tablet every 12 hours. 5 Active predniSONE (DELTASONE) 10 mg tablet PLEASE SEE ATTACHED FOR DETAILED DIRECTIONS 5 Active prazosin (MINIPRESS) 2 mg cap Take 2 mg by mouth. 5 Active OXcarbazepine (TRILEPTAL) 300 mg tablet Take 300 mg by mouth. 5 12/27/19 26 Active ondansetron (ZOFRAN) 4 mg tablet Take 4 mg by mouth every 8 hours as needed for nausea/vomiting . 3 Active OLANZapine (ZYPREXA) 2.5 mg tablet 5 Active buPROPion XL (WELLBUTRIN XL) 300 mg 24 hr tablet 300 mg. 5 Active cyclobenzaprine (FLEXERIL) 5 mg tabletIndicatio ns:pelvic pain/muscle spasm Place 1 tab per vagina up to TID prn pain/spasm, if no effect may try 2 tabs TID prn. 30 tablet 2 5 Active Active Problems Problem Noted Date Diagnosed Date Pelvic floor dysfunction 10/11/2024 Chronic constipation 10/11/2024 Muscle spasm 10/11/2024 Gastroparesis 11/02/2022 Encounters Date Type Department Care Team Description 01/09/2025 Get Medical Advice Colorectal Surgery [address] [place] [address] Lesly Barnett, DOOR MACHINE OPERATOR.UNLOADER OPERATOR Follow up 01/06/2025 Get Medical Advice Cardiology [address] [place] [address] Provider, [facility] Testing 12/30/2024 9:00 AM EDT Office Visit Gynecology [address] [place] [address] Emma Ying, DOOR MACHINE OPERATOR.UNLOADER OPERATOR Chronic pelvic pain in female (Primary Dx); Other specified dyspareunia; Pelvic pain in female; High-tone pelvic floor dysfunction; Vulvodynia; Stress incontinence; Irritable bowel syndrome with constipation; Vaginal dryness 12/30/2024 Travel 11/08/2024 Patient Msg HOSP MAIN H060 [address] [place] [address] Provider, [facility] Sign up to manage your digestive symptoms in between visits, covered by insurance 10/23/2024 12:28 PM EDT - 10/23/2024 11:59 PM EDT Hospital Encounter Radiology [address] [place] [address] [place] [address] Pelvic floor dysfunction [M62.89] Discharge Disposition: Home 10/21/2024 10:51 AM EDT - 10/21/2024 11:59 PM EDT Hospital Encounter [facility] Radiology General [address] [place] [address] Pelvic floor dysfunction [M62.89] Discharge Disposition: Home 10/15/2024 10:30 AM EDT Procedure Colorectal Surgery [address] [place] [address] Lesly Barnett, DOOR MACHINE OPERATOR.UNLOADER OPERATOR 10/11/2024 2:45 PM EDT OT/PT/Speech Visit [facility] Physical Therapy [address] [place] [address] Lydia Rock, PT, DPT Muscle spasm (Primary Dx); Pelvic floor dysfunction; Chronic constipation 10/11/2024 Plan of Care Documentation [facility] Physical Therapy [address] [place] [address] 10/09/2024 1:00 PM EDT Office Visit Colorectal Surgery [address] [place] [address] Lesly Barnett APRN.UNLOADER OPERATOR Pelvic floor dysfunction (Primary Dx); Chronic constipation; Gastroparesis 10/09/2024 Travel from Last 3 Months Family History Medical [...] is lower risk 4 10/17/2022 Data from: https://www.neighborhoodatlas.medicine.[facility].edu/. Last address used for calculation [address] 10/17/2022 Comments No Sex and Gender Information Value Date Recorded Sex Assigned at Not on file Legal Sex Female 9:05 PM EDT Gender Identity Female 06/08/2021 8:30 AM EST Sexual Orientation Not on file Last Filed Vital Signs Vital Sign Reading Time Taken Comments Blood Pressure 132/94 12/30/2024 9:14 AM EDT Pulse 106 10/09/2024 1:00 PM EDT Temperature 36.3 C (97.4 F) 10/17/2022 9:55 AM EDT Respiratory Rate 21 05/22/2024 2:30 PM EST Oxygen Saturation 99% 10/09/2024 1:00 PM EDT Inhaled Oxygen Concentration - - Weight 92.9 kg (204 lb 12.9 oz) 12/30/2024 9:14 AM EDT Height 160 cm (5' 3 ) 08/13/2024 2:57 PM EDT Body Mass Index 36.28 08/13/2024 2:57 PM EDT Plan of Treatment Health Maintenance Due Date Last Done Comments Anxiety Screening 2006 Depression Screening 2006 HIV Screening 2006 HPV Vaccine (2 - 3-dose series) 11/30/2006 7 Cervical Cancer Screening 2009 Influenza Vaccine (#1) [...] 025 9:14 AM EDT) Solo Silverman MD Procedures Procedure Name Priority Date/Time Associated Diagnosis Comments EXERCISE STRESS ECG (WITHOUT IMAGING) Routine 01/08/2025 10:15 AM EDT Syncope, unspecified syncope type XR ABDOMEN 1V SUPINE Routine 10/23/2024 1:13 PM EDT Pelvic floor dysfunction Chronic constipation XR ABDOMEN 1V SUPINE Routine 10/21/2024 11:17 AM EDT Pelvic floor dysfunction Chronic constipation [facility] ANORECTAL MANOMETRY Routine 10/15/2024 Pelvic floor dysfunction Chronic constipation HEPATITIS C ANTIBODY IA WITH CONFIRMATION Routine [...] any questions regarding this interpretation, please call [phone]. If you are unable to reach us at the number above, please feel free to contact [facility] at [phone]. Narrative 10/23/2024 3:17 PM EDT * * [...] No radiopaque markers are noted in the [id number]. Procedure Note Provider, [facility] [place] - 10/23/2024 * * *Final Report* * [...] No radiopaque markers are noted in the [id number]. IMPRESSION IMPRESSION: 0 Sitzmarks markers. The previously [...] any questions regarding this interpretation, please call [phone]. If you are unable to reach us at the number above, please feel free to contact [facility] at [phone]. us Leslymariann Barnett APRN.UNLOADER OPERATOR RAD-PAMA Final Result * XR ABDOMEN 1V SUPINE (10/21/2024 11:17 AM EDT) Anatomical Region Laterality Modality Abdomen Other 10/21/2024 11:1 7 AM EDT Impressions 10/28/2024 9:10 AM EDT IMPRESSION: Sitzmarks markers as described. Board Saw Runner: PSCB Transcribe Date/Time: Oct 28 2024 9:07A [...] passage of Sitzmarks markers. Procedure Note Provider, [facility] [place] - 10/28/2024 * * *Final Report* * * DATE [...] markers. IMPRESSION IMPRESSION: Sitzmarks markers as described. Board Saw Runner: MINAL Transcribe Date/Time: Oct 28 2024 9:07A Dictated by : MARCELA STILL MD This examination was interpreted and the report reviewed and electronically signed by: MARCELA STILL MD on Oct 28 2024 9:08AM EST us Lesly Barnett APRN.UNLOADER OPERATOR RAD-PAMA Final Result * ADULT [place] ANORECTAL MANOMETRY (10/15/2024) Anatomical Region Laterality Modality [...] pelvic floor non-relaxation / dyssynergia. Lesly Barnett APRN.UNLOADER OPERATOR I have reviewed, verified, and confirmed the results of anorectal manometry, rectal sensation, tone and compliance testing and EMG testing. I agree with the impression as written above. Clair Edwards MD Colon & Rectal Surgery us Lesly Anibal DOOR MACHINE OPERATOR.UNLOADER OPERATOR DIGESTIVE DISEASE Beatrice l Result * HEPATITIS C ANTIBODY IA WITH CONFIRMATION (04/26/2024 3:01 PM EST) Hep C Antibody IA Negative Negative 04/27/2024 10:55 AM EST [facility] Comment:The result suggests no evidence of active infection with Hepatitis C virus. Should recent infection be suspected, repeat testing may be considered 4-6 weeks after this draw. Blood BLOOD SPECIMEN / Unknown Venipuncture / Unknown 04/26/2024 3:01 PM EST 04/26/2024 3:02 PM EST us Iliana Hendrickson PA-C LABORATORY Final Resu lt [facility] [address] [place] [address], from Last 3 Months or Most Recently Relevant to Health Maintenance Insurance [facility] PPO Care Teams Parts Specialist Relationship Specialty Start Date End Date Emerald Sanchez MD [address] [facility] [address] [place] [address] PCP - General Family Medicine 03/27/19 Deena Osorio APRN [address] [facility] [address] [place] [address] Referring Family Medicine 04/03/24 Darwin Starr DO [address] [place] [address] [place] [address] Referring Telephone Lineworker 07/02/24
--- OUTSIDE RECORDS SUMMARY | 2025-01-09 12:11 | XMS_ITS | Clinical Summary ---
Author Organization [facility] Address [address], [address] [place] [address] Care Team Providers Care Data Integration Architect Name Role Phone Emerald Sanchez MD Primary Care Provider [phone] Allergies Active Allergy Reactions Criticality Noted Date [...] e alcohol) 1 a week. Last 03/18/23 [facility] Utilities Answer Date Recorded In the past 12 months has e inZair, gas, oil, or water itravel threatened to shut off services in your [...] slept in a mcfp (including now)? No 03/21/2023 Housing Stability Vital Sign Answer Celso e Recorded In the last 12 months, was t here a time when you were not able to pay the mortgage or rent on time? No 03/21/2023 Number of Times Moved in the Last Year Not on fi le 03/21/2023 Homeless in the Last Year Not on file 2022 Interpersonal Safety ([facility] HRSN) Answer Date Recorded How often does [...] 03/21/2023 11:15 PM EST Plan of Treatment Upcoming Encounters Date Type Department Care Team (Late st Contact Info) Description 01/14/2025 2:00 PM EDT Appointment [facility] Physical Therapy [address] [place], [place] [id number] Camilla Chappell, PT PT BRINGING REFERRAL Health Maintenance Due Date Last Done Comments Varicella vaccine (2 of 2 - 2-dose childhood series) 1992 10/31/1990 Depression Monitoring 2000 HIV screen 09/29/2003 Hepatitis C screen 2006 HPV vaccine (2 - 3-dose series) 11/30/2006 11/02/2006 Pneumococcal 0-49 years Vaccine (1 of 2 - PCV) 09/29/2007 DTaP/Tdap/Td vaccine (6 - Td or Tdap) 02/06/2020 02/05/2010, 12/28/1993, 12/07/1992, Additional history exists Flu vaccine (#1) 11/22/2024 02/09/2021, , 01/08/2018, Additional history exists COVID-19 Vaccine ( season) 2024 11/02/2021, 04/29/2021, 03/03/2021 Polio vaccine Completed 12/07/1992, 05/25, 05/21/1990, Additional [...] this topic Medical Devices Implanted Type Area Soda Fountain Operator Device Identifier Shelf Expiration Date Model / Serial / Lot Clip Int L Polymer Ernie Lig Hem O Ernie (6ea/Pk) - [id number] Implanted:Qty: 1 on 03/23/2023 by Brandyn Cortés MD at [facility] 11/23/2027 [id number] / / [id number] Insurance [employer] Advance Directives * Full Code (Latest Code Status on File) Date Activated Date Inactivated Comments 03/21/2023 11:04 PM 03/24/2023 6:54 PM Care Teams Data Integration Architect Relationship Specialty Start Date End Date Emerald Sanchez MD PCP - General Family Medicine 11/02/18
--- OUTSIDE RECORDS SUMMARY | 2025-01-09 12:11 | XMS_ITS | Clinical Summary ---
Author Organization [facility] Address [address] [place] [address] Care Team Providers Care Cabbage Salter Name Role Phone Emerald Hagen MD Unavailable Emerald Hagen MD Primary Care Provider [phone] Allergies Active Allergy Reactions Criticality Noted Date [...] INHALE 1 PUFF DAILY 60 each 2 Active buPROPion XL (Wellbutrin XL) 150 MG [...] mg) at bedtime. 34 tablet 11 Active escitalopram (Lexapro) 20 MG tablet Take 20 mg by mouth Daily Active LORazepam (Ativan) 0.5 MG tablet Take 0.5 mg by mouth in the morning and 0.5 mg before bedtime. Active ondansetron ODT (Zofran-ODT) 4 MG disintegrating tablet Take 4 mg by mouth every 6 (six) hours if needed Active amphetamine-dextr oamphetamine XR (Adderall XR) 30 MG 24 hr capsuleIndication s:Attention deficit hyperactivity disorder (ADHD), predominantly inattentive type Take 1 capsule (30 mg) by mouth Daily Do not crush or chew. Take with the 10mg daily 30 capsule 025 2024 Active amphetamine-dextr oamphetamine XR (Adderall XR) 10 MG 24 hr capsuleIndication s:Attention deficit hyperactivity disorder (ADHD), predominantly inattentive type,Bipolar disorder, in partial remission, most recent episode manic (HCC),Agoraphobia with panic attacks Take 1 capsule (10 mg) by mouth in the morning. Do not crush or chew. Take with the 30mg tablet. 30 capsule 025 2024 Active prazosin (Minipress) 2 MG capsuleIndication s:PTSD (post-traumatic stress disorder) Take 1 capsule (2 mg) by mouth in the morning and 1 capsule (2 mg) in the evening and 1 capsule (2 mg) before bedtime. 100 capsule 2 Active dapagliflozin (Farxiga) 10 MGIndications:[place] ght gain,Borderline diabetes Take 1 tablet (10 mg) by mouth Daily 30 tablet 11 025 2025 Active doxepin (SINEquan) 100 MG capsuleIndication s:Major depressive disorder, recurrent, moderate (HCC) Take 2 capsules (200 mg) by mouth at bedtime 60 capsule 2024 Active OXcarbazepine (Trileptal) 300 MG tabletIndications :Lumbar radiculopathy,Aty pical migraine Take 1 tablet (300 mg) by mouth in the morning and 1 tablet (300 mg) before bedtime. 60 tablet 2 025 2025 Active Semaglutide-Weigh t Management (Wegovy) 0.25 MG/0.5ML solution auto-injectorIndi cations:Obesity (BMI 35.0-39.9 without comorbidity) Inject 0.25 mg under the skin 1 (one) time per week 2 mL Active Semaglutide-Weigh t Management (Wegovy) 0.25 MG/0.5ML solution auto-injectorIndi cations:Obesity (BMI 35.0-39.9 without comorbidity) Inject 0.25 mg under the skin 1 (one) time per week 2 mL Active hydrocortisone (Anusol-HC) 25 MG suppository UNWRAP AND INSERT 1 SUPPOSITORY RECTALLY EVERY 12 HOURS NEEDED FOR HEMORRHOIDS 2024 Discontinued(O ther) tiZANidine (Zanaflex) 4 MG tabletIndications :Peroneal tendon tear, right, initial encounter Take 1 tablet (4 mg) by mouth every 6 (six) hours if needed for muscle spasms for up to 10 days 30 tablet 025 2024 Discontinued(I neffective) cloNIDine (Catapres) 0.1 MG tablet 1 (one) time each day at the same time 2024 Discontinued(T herapy completed) QUEtiapine XR (SEROquel XR) 50 MG 24 [...] and 0.5 mg before bedtime. 2024 Discontinued doxepin (SINEquan) 50 MG capsule Take 50 mg by mouth at bedtime 2024 Discontinued(R eorder) prazosin (Minipress) 2 MG capsule Take 2 mg by mouth in the morning and 2 mg in the evening and 2 mg before bedtime. 2024 Discontinued(R eorder) predniSONE (Deltasone) 20 MG tabletIndications :Other synovitis and tenosynovitis, right ankle and foot Take 1 tablet (20 mg) by mouth Daily for 10 days 10 tablet 025 2024 doxepin (SINEquan) 50 MG capsuleIndication s:Major depressive disorder, recurrent, moderate (HCC) Take 1 capsule (50 mg) by mouth at bedtime 100 capsule 2 025 2024 Discontinued(R eorder) Active Problems Problem Noted Date Diagnosed Date Chest pain 01/06/2025 Assessment & Plan (01/06/2025 11:35 AM EDT): Stress Echo last year from Pepcid AC twice a day Type 2 diabetes mellitus wit hout complication, without long-term current use of insulin 01/06/2025 Assessment & Plan (01/06/2025 11:42 AM EDT): Last A1c was 8.5 Atypical migraine 12/29/2024 Morbid (severe) obesity due to excess calories 0 12/16/2024 Assessment & Plan (12/16/2024 10:11 AM EDT): Weight loss Impaired fasting glucose 12/16/2024 Obesity, class 2 12/16/2024 Assessment & Plan (12/16/2024 10:11 AM EDT): Probably related to Diabetes Generalized anxiety disorder 12/12/2024 Obsessive-compulsive disorder 12/12/2024 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 Right ovarian cyst 12/12/2024 Lumbar radiculopathy 12/09/2024 Assessment & Plan (12/16/2024 10:02 AM EDT): Has had shots Encouraged weight lost EMG shows Left L4 moderate radiculopathy Pelvic floor dysfunction 10/11/2024 Extruding suture 09/25/2024 [...] (06/06/2024 4:08 PM EST): Could be situational Borderline diabetes 06/06/2024 Asthmatic bronchitis with acute exacerbation Assessment [...] Pain and swelling of left shoulder 04/03/2024 Body mass index (BMI) 36.0-36.9, adult Assessment & Plan (12/16/2024 10:12 AM EDT): Can't exercise due to chip Assessment & Plan (02/06/2024 9:24 AM EDT): [...] NB consider PT and xrays Eventual MRI Well adult health check 12/04/2023 Assessment & Plan (01/06/2025 11:34 AM EDT): Modest Alcohol consumption No Tobacco Seat Belt use Exercise Regularly No Text Drive Social Accountability Assessment & Plan (12/04/2023 3:11 PM EDT): Modest Alcohol consumption No Tobacco Seat Belt use Exercise Regularly No Text Drive Social Accountability Tinea 10/03/2023 Weight gain 10/03/2023 Assessment & Plan (12/16/2024 10:03 AM EDT): Has seen Contact Center Analyst in the past. Glucose intolerance 10/03/2023 Dyshidrosis 10/03/2023 Cholecystitis 04/18/2023 History of acute pancreatitis 04/18/2023 Assessment & Plan (04/18/2023 2:57 PM EST): Liver Specialist follow-up is May 01 Has seen Swing Driver x 2 Has seen a specialist for [...] biliary pancreatitis w ithout infection or necrosis ([facility]-HCC) 03/21/2023 History of COVID-19 02/06/2023 Overweight [...] will be seeing the [facility] [facility] and they will start to manage the [...] Bilateral nephrolithiasis 09/23/2022 Nonalcoholic steatohepatitis (ENGLISH) 09/23/2022 Assessment & Plan (12/16/2024 10:09 AM EDT): F/Up with GI Numbers are improved since stopping alcohol Other specified abnormal findings of blood chemi [...] Has supplement PTSD (post-traumatic stress disorder) 02/24/2015 Assessment & Plan (12/16/2024 10:12 AM EDT): S/p rehab Resolved Problems Problem Noted Date Diagnosed Date [...] Canceled surgery due to hear issues, but bankruptcy assistant cleared and already has had 2 surgeries last year with no complication Injury of right ankle 02/06/20242024 Encounter for postoperative care 04/18/2023 12/12/2024 Dysuria [...] Encounters Date Type Department Care Team Description 01/08/2025 [facility] [address] [facility] [address] [place] [address] Emerald Hagen MD Obesity (BMI 35.0-39.9 without comorbidity) 01/07/2025 Refill [facility] [address] [place] [address] [place] [address] Emerald Hagen MD Obesity (BMI 35.0-39.9 without comorbidity) 01/07/2025 Telephone [facility] [address] [place] [address] Emerald Hagen MD 01/06/2025 10:30 AM EDT Office Visit [facility] [place] [address] Emerald Hagen MD Well adult health check (Primary Dx); Chest pain, unspecified type; Elevated liver enzymes; Type 2 diabetes mellitus without complication, without long-term current use of insulin (HCC) 01/06/2025 Abstract [facility] [address] [place] [address] Emerald Hagen MD 01/06/2025 Bamboo flowsheet [facility] [place] [address] Emerald Hagen MD 01/06/2025 Travel 12/30/2024 1:20 PM EDT Clinical Support [facility] [address] [place] [address] Milton Duvall, DPM FACFAS Other synovitis and tenosynovitis, right ankle and foot (Primary Dx); Right foot pain; Other enthesopathy of right foot and ankle 12/30/2024 Bamboo flowsheet [facility]ounts include 234 beds at the [facility] [address] [place] [phone] Milton Duvall, DPM FACFAS 12/29/2024 Travel 12/26/2024 1:20 PM EDT Office Visit [facility] [address] [facility] [address] [place] [address] Jatin Cabrera MD Lumbar radiculopathy (Primary Dx); Numbness and tingling; Atypical migraine 12/26/2024 Travel 12/20/2024 Results Follow-Up [facility] [address] [place] [address] Sandy Hammond PA MLR HEMOGLOBIN A1C, CCF CMP (CMP) (FOR REMOTE [facility]LY [facility] USE), TSH W/REFLEX T4, Additional followed-up results: 8 12/20/2024 Abstract [facility] [place] [address] Emerald Hagen MD 12/17/2024 Abstract [facility] [place] [address] Emerald Hagen MD 12/16/2024 9:45 AM EDT Office Visit [facility] [address] [place] [address] Emerald Hagen MD Nonalcoholic steatohepatitis (ENGLISH) (Primary Dx); PTSD (post-traumatic stress disorder) ; Major depressive disorder, recurrent, moderate (HCC); Lumbar radiculopathy; Weight gain; Borderline diabetes; Morbid (severe) obesity due to excess calories ([facility]-HCC); Impaired fasting glucose; Obesity, class 2; Body mass index (BMI) 36.0-36.9, adult 12/16/2024 Telephone [facility] [address] [place] [address] Emerald Hagen MD dose correction on med 12/16/2024 Travel 12/16/2024 Telephone [facility] [address] [place] [address] [place] [address] Sandy Hammond PA 12/13/2024 10:05 AM EDT Ancillary Procedure [facility] [address] [place] [address] 12/13/2024 9:40 AM EDT Office Visit [facility] [address] [place] [address] Milton Duvall, DPM FACFAS Sprain of calcaneofibular ligament of right ankle, initial encounter (Primary Dx); Right foot pain; Other synovitis and tenosynovitis, right ankle and foot; Other enthesopathy of right foot and ankle 12/13/2024 Abstract [facility] [address] [place] [address] Emerald Hagen MD 12/13/2024 Abstract [facility] [place] [address] Emerald Hagen MD 12/12/2024 10:30 AM EDT Office Visit [facility] [address] [facility] [address] [place] [address] Sandy Hammond PA Elevated liver enzymes (Primary Dx); Nephrocalcinosis; Bilateral nephrolithiasis; Right ovarian cyst; Hypokalemia; Weight gain; Attention deficit hyperactivity disorder (ADHD), predominantly inattentive type ; History of alcohol dependence (HCC); Impaired fasting glucose; Other fatigue; Anxiety; Other chronic pain 12/12/2024 Abstract [facility] [address] [facility] [address] [place] [address] Emerald Hagen MD 12/12/2024 Abstract [facility] [place] [address] Emerald Hagen MD 12/12/2024 Clinisync Result Encounter [facility] External Department Unsolicited Sandy Hammond PA 12/12/2024 Bamboo flowsheet [facility] [place] [address] [place] [address] Sandy Hammond PA 12/12/2024 Travel 12/11/2024 Travel 12/10/2024 Patient Outreach [facility] [address] [place] [address] Gifty Mireles LPN 12/10/2024 Abstract [facility] [address] [place] [address] Gifty Mireles LPN 12/09/2024 1:00 PM EDT Procedure Visit [facility] [address] [facility] [address] [place] [address] Lumbar radiculopathy 12/09/2024 Travel 10/30/2024 Refill [facility] [address] [place] [address] [place] [address] Sandy Hammond, VINH Anxiety; Bipolar disorder, in partial remission, most recent episode manic (HCC) 10/23/2024 Clinisync Result Encounter [facility] External Department Unsolicited Provider, Generic External Data 10/21/2024 Clinisync Result Encounter NOMS External Department Unsolicited Provider, Generic External Data 10/21/2024 Clinisync Result Encounter [facility]OM[facility] External Department Unsolicited Shannon Darden NP 10/15/2024 12:00 PM EDT Procedure Visit [facility] [address] [address] Cervical radiculopathy; Numbness and tingling 10/15/2024 Travel 10/10/2024 1:00 PM EDT Office Visit [facility] [address] [phone] Shannon Darden, JAGDISH Numbness and tingling (Primary Dx); Atypical migraine ; Numbness and tingling of upper extremity; Numbness and tingling of left side of face 10/10/2024 Bamboo flowsheet [facility] [address] [place] [address] Shannon Darden HEAD OF MAINTENANCE 10/10/2024 Travel from Last 3 Months Immunizations Immunization [...] week 05/09/2024 How often do you attend holiness or mormonism serv ices? Never 05/09/2024 Do you belong to any clubs o r organizations such as holiness groups, unions, fraternal or athletic groups, or [...] Recorded Patient Health Questionnaire-2 Score 4 01/06/2025 [facility] - [...] any time in the past 12 [facility], were you homeless or living [...] Pulse 90 01/06/2025 11:01 AM EDT Temperature 36.5 C (97.7 F) 04/18/2024 4:42 PM EST Respiratory Rate 16 01/06/2025 11:01 AM EDT Oxygen Saturation 97% 01/06/2025 11:01 AM EDT Inhaled Oxygen Concentration - - Weight 96.2 kg (212 lb) 01/06/2025 11:01 AM EDT Height 157.5 cm (5' 2 ) 01/06/2025 11:01 AM EDT Body Mass Index 38.78 01/06/2025 11:01 AM EDT Plan of Treatment Upcoming Encounters Date Type Department Care Team (Late st Contact Info) Description 01/14/2025 6:00 PM EDT Ancillary Procedure [facility] [address] [place] [address] 01/15/2025 4:00 PM EDT Clinical Support [facility] [address] [facility] [place] [place] [address] Milton Duvall, DPM FACFAS [address] [facility] [place] [address] 02/28/2025 9:00 AM EST Office Visit [facility] [address] [facility] [address] [place] [address] Jatin Cabrera MD [address] [id number] 03/18/2025 9:00 AM EST Office Visit [facility] [address] [facility] [address] [place] [address] Emerald Hagen MD [address] [facility] [address] [place] [address] Health Maintenance Due Date Last Done Comments Diabetes: Retinopathy Screening 1998 Diabetes: Urine Protein Screening 06/06/2023 06/06/2022, 06/02/2022 Diabetes: Hemoglobin A1C 07/02/2024 024, 10/03/2023, 10/17/2022, Additional history exists Influenza Vaccine (#1) 2024 , 02/09/2021, 03/16/2020, Additional history exists Cervical Cancer Screening Discontinued Pap Smear Discontinued 03/20/2024, 03/25, 04/15/2021 HPV/Cotest Discontinued Goals Goal Patient Goal Type Associated Problems Recent Progress Patient-Stated? Author Help patient manage antidepressant medication Care Plan Patient on antidepressant monitoring plan No Emerald Hagen MD Baseline PHQ-9 Care Plan Baseline PHQ-9 No Emerald Hagen MD Procedures Procedure Name Priority Date/Time Associated Diagnosis Comments XR FOOT 3+ VIEWS RIGHT Routine 12/13/2024 10:02 AM EDT Right foot pain Other synovitis and tenosynovitis, right ankle and foot METRO VITAMIN B1, WHOLE BLOOD Routine 12/12/2024 11:40 AM EDT ALL VITAMIN B6 Routine 12/12/2024 11:40 AM EDT TRANSFERRIN Routine 12/12/2024 11:40 AM EDT VITAMIN B12 Routine 12/12/2024 11:40 AM EDT ALL FOLIC ACID Routine 12/12/2024 11:40 AM EDT TBH VITAMIN D 25 [place] Routine 12/12/2024 1 1:40 AM EDT METRO IRON AND TIBC Routine 12/12/2024 1 1:40 AM EDT ALL CBC WITH AUTO DIFF Routine 12/12/2024 11:40 AM EDT TSH W/REFLEX T4 Routine 12/12/2024 11:40 AM EDT [facility] CMP (CMP) (FOR REMOTE [facility]LY [facility] USE) Routine 12/12/2024 11:40 AM EDT MLR HEMOGLOBIN A1C Routine 12/12/2024 11 :40 AM EDT [facility] EMG 1 EXTREMEITY Routine 12/09/2024 9:00 AM EDT Numbness and tingling XR ABDOMEN 1V SUPINE 10/23/2024 1:13 PM EDT MRI HEAD/BRAIN WO/W CONTR 10/21/2024 11:39 AM EDT XR ABDOMEN 1V SUPINE 10/21/2024 11:17 AM EDT HEMOGLOBIN A1C Routine 04/03/2024 11:18 AM EST Elevated blood sugar PAP SMEAR Routine 03/20/2024 12:00 AM EST MICROALBUMIN / CREATININE URINE RATIO Routine 06/02/2022 from Last 3 Months or Most Recently Relevant to Health Maintenance Results * XR foot 3+ views right (12/13/2024 10:02 AM EDT) Anatomical Region Laterality Modality Lower Extremities, Foot Right Radiogra phic Imaging Narrative 12/14/2024 6:39 AM EDT Imaging Result: Radiographs: Three views were taken today AP/MORT/LAT Ankle: No fractures or dislocations seen mild swelling circumferentially around the ankle. Small leanne fracture noted of the medial aspect of the medial malleolus. us Milton Duvall DPM FACFAS IMG XR PROCEDURES Final Result * VITAMIN B12 (12/12/2024 11:40 AM EDT) VITAMIN B12 862 232 - 1245 pg/mL TBH Comment: Performed at: [facility] [address] [id number] Truck Service Manager: Demarcus Moreno PhD, Phone: [phone] 12/12/2024 11:4 0 AM EDT 12/12/2024 11:47 AM EDT Narrative CLINISYNC - 12/13/2024 4:08 AM EDT us Sandy JUSTICE LAB BLOOD ORDERABLES Final Res ult [facility] * TSH W/REFLEX T4 (12/12/2024 11:40 AM EDT) TSH 3.223 0.358 - 3.740 uIU/mL TB[facility] 12/12/2024 11:4 0 AM EDT 12/12/2024 11:47 AM EDT Narrative CLINISYNC - 12/12/2024 12:53 PM EDT Sandy JUSTICE LAB BLOOD ORDERABLES Final Res ult Performing Organization Address [facility] Co de Phone Number [facility] * TRANSFERRIN (12/12/2024 11:40 AM EDT) TRANSFERRIN 232 192 - 364 mg/dL [facility] Comment: Performed at: [facility] [address] [id number] Truck Service Manager: Demarcus Moreno PhD, Phone: [phone] 12/12/2024 11:4 0 AM EDT 12/12/2024 11:47 AM EDT Narrative CLINISYNC - 12/13/2024 4:08 AM EDT Sandy JUSTICE LAB BLOOD ORDERABLES Final Res ult Performing Organization Address [facility] de Phone Number [facility] * TBH VITAMIN D 25 [place] (12/12/2024 11:40 AM EDT) Pathologist [facility] VITAMIN D 29.0 ng/mL [facility] Comment: <20 ng/mL Vit D deficient 20-<30 ng/mL Vit D insufficient 30-100 ng/mL Vit D sufficient >100 ng/mL Potential Toxicity 12/12/2024 11:4 0 AM EDT 12/12/2024 11:47 AM EDT Narrative CLINISYNC - 12/12/2024 2:08 PM EDT Sandy JUSTICE CLINISYNC Final Result Performing Organization Address [facility] de Phone Number [facility] * MLR HEMOGLOBIN A1C (12/12/2024 11:40 AM EDT) GLYCOHEMOGLOBIN A1C 5.6 4.5 - 6.2 % [facility] Comment: ADA RECOMMENDED LIMIT 4.0 - 6.0 ADA THERAPEUTIC TARGET < 7.0 ACTION SUGGESTED > 7.0 ESTIMATED AVERAGE GLUCOSE 114 mg/dL TB 12/12/2024 11:4 0 AM EDT 12/12/2024 11:47 AM EDT Narrative CLINISYNC - 12/12/2024 12:16 PM EDT Sandy JUSTICE CLINISYNC Final Result Performing Organization Address City/[facility]/ZIP Co de Phone Number CLINISYNC TBH * METRO VITAMIN B1, WHOLE BLOOD (12/12/2024 11:40 AM EDT) Pathologist [facility] VITAMIN B1 (THIAMINE), BLOOD 126.4 66.5 - 200.0 nmol/L TB Comment: This test was developed and its performance characteristics determined by [facility]. It has not been cleared or approved by the Food and Drug Administration. Performed at: [address] [id number] Truck Service Manager: Yuli Callejas MD, Phone: [phone] 12/12/2024 11:4 0 AM EDT 12/12/2024 11:47 AM EDT Narrative CLINISYNC - 12/19/2024 5:08 PM EDT Sandy JUSTICE CLINISYNC Final Result Performing Organization Address [facility] de Phone Number CLINISYNC TB * METRO IRON AND TIBC (12/12/2024 11:40 AM EDT) [facility] TB IRON 89.0 50.0 - 170.0 ug/dL TBH TBH TOTAL IRON BINDING CAPACITY 260.0 250.0 - 450.0 ug/dL TBH TBH PERCENT IRON SATURATION 34.2 % TBH 12/12/2024 11:4 0 AM EDT 12/12/2024 11:47 AM EDT Narrative CLINISYNC - 12/12/2024 1:12 PM EDT Sandy JUSTICE CLINISYLUCIANO Final Result Performing Organization Address City/[facility]/ZIP Co de Phone Number CLINISYNC TB[facility] * (ABNORMAL) [facility]CF CMP (CMP) (FOR REMOTE [facility]LY [facility] USE) (12/12/2024 11:40 AM EDT) SODIUM 138 136 - 145 mmol/L TBH POTASSIUM 3.5 3.5 - 5.1 mmol/L TBH CHLORIDE 103 98 - 107 mmol/L TBH CARBON DIOXIDE 28.3 21.0 - 32.0 mmol/L TBH ANION GAP 10.2 TBH GLUCOSE 115(H) 74 - 106 mg/dL TBH BLOOD UREA NITROGEN 10.0 7.0 - 18.0 mg/dL TBH CREATININE 0.79 0.55 - 1.02 mg/dL TBH TBH EGFR-AF [place]URKS AND [place]ER >60 >=60 mL/min/1. 73m 2 TBH TBH EGFR-NON AF TUR[place] AND [place]ER >60 >=60 mL/min/1. 73m 2 TBH BUN CREATININE RATIO 12.7 TBH CALCIUM 8.6 8.5 - 10.1 mg/dL TBH BILIRUBIN TOTAL 0.2 0.2 - 1.0 mg/dL TBH ASPARTATE AMINO TRANSFERASE 34 15 - 37 U/L TBH ALANINE AMINOTRANSFERASE 94(H) 14 - 59 U/L TBH ALKALINE PHOSPHATASE 117(H) 46 - 116 U/L TBH TOTAL PROTEIN 7.6 6.4 - 8.2 g/dL TBH ALBUMIN LEVEL 3.9 3.4 - 5.0 g/dL TBH GLOBULIN 3.7 g/dL TBH ALBUMIN GLOBULIN RATIO 1.1 TBH 12/12/2024 11:4 0 AM EDT 12/12/2024 11:47 AM EDT Narrative CLINISYNC - 12/12/2024 12:53 PM EDT us Sandy JUSTICE CLINISYNC Final Result CLINISYNC TB * ALL VITAMIN B6 (12/12/2024 11:40 AM EDT) VITAMIN B6, PLASMA 33.5 3.4 - 65.2 ug/L TBH Comment: This test was developed and its performance characteristics determined by [facility]. It has not been cleared or approved by the Food and Drug Administration. Deficiency: <3.4 Marginal: 3.4 - 5.1 Adequate: >5.1 Performed at: - [address] [id number] Truck Service Manager: Yuli Callejas MD, Phone: [phone] 12/12/2024 11:4 0 AM EDT 12/12/2024 11:47 AM EDT Narrative CLINISYNC - 12/17/2024 10:08 AM EDT Sandy JUSTICE CLINISYNC Final [facility] * ALL FOLIC ACID (12/12/2024 11:40 AM EDT) Pathologist [facility] FOLATE 10.40 8.60 - 58.90 ng/mL TBH 12/12/2024 11:4 0 AM EDT 12/12/2024 11:47 AM EDT Narrative CLINISYNC - 12/12/2024 2:08 PM EDT Sandy JUSTICE CLINISYNC Final Result Performing Organization Address [facility] de Phone Number [facility] * (ABNORMAL) ALL CBC WITH AUTO DIFF (12/12/2024 11:40 AM EDT) Pathologist [facility] TB WBC 9.7 4.0 - 11.0 10 3/uL TBH TB RBC 3.96(L) 4.20 - 5.40 10 6/uL TBH TB HGB 12.9 12.0 - 16.0 g/dL TB TB HCT 38.1 36.0 - 48.0 % TB TB MCV 96.2 81.0 - 99.0 fL TB TB MCH 32.6 26.7 - 34.0 pg TBH TBH MCHC 33.9 29.9 - 35.2 g/dL TB TB RDW 12.5 11.0 - 15.0 % TBH TBH PLT 263 150 - 450 10 3/uL TBH TB MPV 10.5 9.5 - 13.5 fL TBH NEUTROPHILS PERCENT AUTO 58.3 43.0 - 75.0 % TBH LYMPHOCYTES PERCENT AUTO 29.0 20.5 - 60.0 % TBH MONOCYTES PERCENT AUTO 5.5 1.7 - 12.0 % TBH TBH EO % 5.5 0.9 - 7.0 % TBH BASOPHILS PERCENT AUTO 0.5 0.2 - 2.0 % TBH IMMATURE GRANULOCYTES PCT AUTO 1.2(H) 0.0 - 0.5 % TBH NEUTROPHILS ABSOLUTE AUTO 5.6 1.4 - 6.5 10 3/uL TBH LYMPHOCYTES ABSOLUTE AUTO 2.8 1.2 - 3.8 10 3/uL TBH MONOCYTES ABSOLUTE AUTO 0.5 0.3 - 0.8 10 3/uL TBH TBH EO # 0.5 0.0 - 0.7 10 3/uL TBH BASOPHILS ABSOLUTE AUTO 0.1 0.0 - 0.1 10 3/uL TBH IMMATURE GRANULOCYTES ABS AUTO 0.12(H) 0.00 - 0.03 10 3/uL TBH 12/12/2024 11:4 0 AM EDT 12/12/2024 11:47 AM EDT Narrative CLINISYNC - 12/12/2024 12:56 PM EDT us Sandy JUSTICE CLINISYNC Final Result CLINISYNC TB[facility] * EMG 1 Extremeity (12/09/2024 9:00 AM EDT) us Shannon Darden HEAD OF MAINTENANCE NEUROLOGY ORDERABLES Ed ited Result - Final [...] No radiopaque markers are noted in the iblbl-so-tiwf. IMPRESSION: 0 Sitzmarks markers. The previously noted [...] any questions regarding this interpretation, please call [phone]. If you are unable to reach us at the number above, please feel free to contact [facility] at [phone]. [id number]^[email or web address]^SI^ACN Procedure Note Radiology, Radiologist, - 10/23/2024 * [...] No radiopaque markers are noted in the lwpyz-cj-asly. IMPRESSION: 0 Sitzmarks markers. The previously noted [...] any questions regarding this interpretation, please call [phone]. If you are unable to reach us at the number above, please feel free to contact [facility] at [phone]. [id number]^[email or web address]^SI^ACN us Generic External Data Provider [facility] Final Result * MRI HEAD/BRAIN WO/W CONTR (10/21/2024 11:39 AM EDT) Anatomical Region Laterality Modality Radiographic Melissa ging 10/21/2024 11:3 9 AM EDT Narrative 10/21/2024 11:42 [place] [address] Magnetic Resonance Report Signed Patient: ORION BARNETT MR#: [id number] : 1990 Acct:[id number] Age/Sex: 34 / F ADM Date: 10/21/24 Loc: MRI Attending Dr: SHANNON DARDEN Ordering Physician: SHANNON DARDEN Date of Service: 10/21/24 Procedure(s): MR head/brain wo/w con Accession Number(s): [id number] cc: EMERALD HAGEN ; SHANNON DARDEN [place] [address] Patient Name: ORION BARNETT MRN: [facility]:[id number] date: 1990 Sex: F Assigned Patient Location: MRI Current Patient Location: MRI Accession/Order Number: [id number] Exam Date: 10/21/2024 11:17 Report Date: 10/21/2024 [...] Knight M.D. 10/21/2024 11:39 AM Dictation Location: [place] [address] Electronically authenticated by: [id number] Y Date: 10/21/2024 11:39 Dictated By: Sandy Knight M.D. Signed By: 10/21/24 1142 DD/ 1139 TD/TT: Shore Working Supervisor: Procedure Note Radiology, Radiologist, MD - 10/21/2024 [place] [address] Magnetic Resonance Report Signed Patient: ORION BARNETT AMR#: [id number] : 1990Acct:[id number] Age/Sex: 34 / FADM Date: 10/21/24 Loc: MRI Attending Dr: SHANNON DARDEN Ordering Physician: SHANNON DARDEN Date of Service: 10/21/24 Procedure(s): MR head/brain wo/w con Accession Number(s): [id number] cc: EMERALD HAGEN ; SHANNON DARDEN [place] [address] Patient Name: ORION BARNETT MRN: [facility]:[id number] date: 1990 Sex: F Assigned Patient Location: MRI Current Patient Location: MRI Accession/Order Number: [id number] Exam Date: 10/21/2024 11:17 Report Date: 10/21/2024 [...] Knight M.D. 10/21/2024 11:39 AM Dictation Location: [place] [address] Electronically authenticated by: [id number] Y Date: 1:39 Dictated By: Sandy Knight M.D. Signed By:10/21/24 1142 DD/ 1139 TD/TT: Shore Working Supervisor: us Shannon Darden HEAD OF MAINTENANCE IMG XR PROCEDURES Final Result * Hemoglobin A1c (04/03/2024 11:18 AM EST) Hemoglobin A1C 5.5 <5.7 % of total Hgb [facility] Comment: For the purpose of screening for the presence of diabetes: <5.7% Consistent with the absence of diabetes 5.7-6.4% Consistent with increased risk for diabetes (prediabetes) > or =6.5% Consistent with diabetes This assay result is consistent with a decreased risk of diabetes. Currently, no consensus exists regarding use of hemoglobin A1c for diagnosis of diabetes in children. According to [place] Diabetes Association (ADA) guidelines, hemoglobin A1c <7.0% represents optimal control in non- diabetic patients. Different metrics may apply to specific patient populations. Standards of Medical Care in Diabetes(ADA). Blood Venous blood specimen / Unknown 04/03/2024 11:18 AM EST 04/03/2024 11:19 AM EST Narrative [facility] - 04/04/2024 7:56 AM EST FASTING:YES FASTING: YES Resulting Agency Comment Performing Organization Information Site ID: QPT Name: [facility] Address: [address] [place] [address], [address] [place] [id number] Director: Tim Dotson MD us Deena M Devon HEAD OF MAINTENANCE LAB BLOOD ORDERABLES Final R esult [facility] * Pap Smear (03/20/2024 12:00 AM EST) Swab Cervical swab / Unknown us Darwin Starr DO LAB CYTOLOGY ORDERABLES Final Re sult Performing Organization Address City/[facility]/ZIP Co de Phone Number EXTERNAL LAB * Microalbumin / creatinine urine ratio (06/02/2022) CREATININE, RANDOM URINE 165 20 - 275 [facility] ALBUMIN, URINE 4.8 See Note: [facility] Comment: Reference Range: Reference Range Not established MICROALBUMIN/CREAT ININE RATIO, RANDOM URINE 29 <30 [facility] Comment: The ADA defines abnormalities in albumin excretion as follows: Albuminuria Category Result (mcg/mg creatinine) Normal to Mildly increased <30 Moderately increased 30-299 Severely increased > OR = 300 The ADA recommends that at least two of three specimens collected within a 3-6 month period be abnormal before considering a patient to be within a diagnostic category. 06/02/2022 Emerald Hagen MD LAB URINE ORDERABLES Final Resul t Performing Organization Address [facility] Co de Phone Number [facility] from Last 3 Months or Most Recently Relevant to Health Maintenance Additional Health Concerns Active Problems Noted Date Diagnosed Date Patient on antidepressant monitoring plan 2023 Baseline PHQ-9 05/08/2023 Insurance [employer] Care Teams Cabbage Salter Relationship Specialty Start Date End Date Emerald Hagen MD [address] [place] [address] [place] [address] PCP - Medical [place] [employer] 10/22/18 04/23/99 Emerald Hagen MD [address] [place] [address] [place] [address] PCP - General Family Medicine 08/30/22
--- OUTSIDE RECORDS SUMMARY | 2025-01-09 12:11 | XMS_ITS | Encounter Summary ---
Author Organization [facility] Address [address] [facility] [place] [address] Care Team Providers Care Coding Director Name Role Phone Emerald Sanchez MD Unavailable Emerald Sanchez MD Primary Care Provider [phone] Encounter Details Date Type Department Care Team (Late st Contact Info) Description 04/02/2024 Abstract [facility] [place] [facility] [address] [facility] 110 [place] [address] Emerald Sanchez MD [address] [place] [address] [place] [address] Social History Tobacco Use Types Packs/Day Years [...] [facility] [address] [place] [place] [address] 01/15/2025 4:00 PM EDT Clinical Support [facility] [address] [place] [address] Milton Duvall, DPM FAC[facility]AS [address] [place] [address] 02/28/2025 9:00 AM EST Office Visit [facility] [place] [facility] [address] [facility] 310 [place] [address] Jatin Cabrera MD 5596 [facility] [address] [id number] 03/18/2025 9:00 AM EST [facility] [address] [facility] 110 [place] [address] Emerald Sanchez MD [address] [facility] 110 [place] [address] documented as of this encounter Goals Goal [...] documented as of this encounter Care Teams Coding Director Relationship Specialty Start Date End Date Emerald Sanchez MD [address] [facility] 110 [place] [address] PCP - Medical [place] Commercial 10/22/18 04/23/99 Emerald Sanchez MD [address] [place] [address] [place] [address] PCP - General Family Medicine 08/30/22 documented as of this encounter
--- OUTSIDE RECORDS SUMMARY | 2025-01-09 12:11 | XMS_ITS | Encounter Summary ---
Author Organization [facility] Address [address] [place] [address] Care Team Providers Care Client Delivery Specialist Name Role Phone Emerald Hagen MD Unavailable Emerald Hagen MD Primary Care Provider [phone] Encounter Details Date Type Department Care Team (Late st Contact Info) Description 05/03/2024 Clinisync Result Encounter [facility] External Department Unsolicited Sandy Hammond, PA [address] [facility] 110 [place] [address] Social History Tobacco Use Types Packs/Day Years [...] and heating? Not hard at all 04/18/2023 [facility] - [...] Ancillary Procedure [facility] [place] [facility] [address] [place] [address] 01/15/2025 4:00 PM EDT Clinical Support [facility] [address] [place] [address] Milton Duvall, DPM FACFAS 368 [place] [address] 02/28/2025 9:00 AM EST Office Visit [facility] [address] [facility] 310 [place] [address] Jatin Cabrera MD 6607 [facility] [address] [id number] 03/18/2025 9:00 AM EST [facility] [address] [facility] 110 [place] [phone] Emerald Hagen MD [address] [facility] 110 [place], [place] [address] (work) documented as of this encounter Goals Goal [...] EST Narrative 05/03/2024 4:04 [place] [address] Magnetic Resonance Report Signed Patient: ORION BARNETT MR#: [id number] : 1990 Acct:[id number] Age/Sex: 33 / F ADM Date: 05/03/24 Loc: MRI Attending Dr: SANDY HAMMOND Ordering Physician: SANDY HAMMOND Date of Service: 05/03/24 Procedure(s): MR cervical spine wo con Accession Number(s): [id number] cc: EMERALD HAGEN ; SANDY HAMMOND [address] [address] Patient Name: ORION BARNETT MRN: [id number]:[id number] date: 1990 Sex: F Assigned Patient Location: MRI Current Patient Location: MRI Accession/Order Number: [id number] Exam Date: 05/03/2024 14:00 Report Date: 05/03/2024 16:01 At the request of: SANDY HAMMOND Procedure: MR cervical spine wo con [...] Bruno M.D. Signed By: 05/03/24 1604 DD/ 160 TD/TT: Chef Teacher: Procedure Note Radiology, Radiologist, MD - 05/03/2024 [place] [address] Magnetic Resonance Report Signed Patient: ORION BARNETT AMR#: [id number] : 1990Acct:[id number] Age/Sex: 33 / FADM Date: 05/03/24 Loc: MRI Attending Dr: SANDY HAMMOND Ordering Physician: SANDY HAMMOND Date of Service: 05/03/24 Procedure(s): MR cervical spine wo con Accession Number(s): [id number] cc: EMERALD HAGEN ; SANDY HAMMOND [place] [address] Patient Name: ORION BARNETT MRN: [facility]:[id number] date: 1990 Sex: F Assigned Patient Location: MRI Current Patient Location: MRI Accession/Order Number: [id number] Exam Date: 05/03/2024 14:00 Report Date: 05/03/2024 16:01 At the request of: SANDY HAMMOND Procedure: MR cervical spine wo con [...] M.D. Signed By:05/03/24 1604 DD/ 1601 TD/TT: Chef Teacher: Sandy JUSTICE IMG MRI PROCEDURES Final Resul t documented in this encounter Visit Diagnoses Not on filedocumented in this encounter Additional Health Concerns Active Problems Noted Date Diagnosed Date Patient on antidepressant monitoring plan 2023 Baseline PHQ-9 05/08/2023 documented as of this encounter Care Teams Client Delivery Specialist Relationship Specialty Start Date End Date Emerald Hagen MD [address] [facility] 110 [place] [address] PCP - Medical [place] [employer] 10/22/18 04/23/99 Emerald Hagen MD [address] [facility] 110 [place] [address] PCP - General Family Medicine 08/30/22 documented as of this encounter
--- OUTSIDE RECORDS SUMMARY | 2025-01-09 12:11 | XMS_ITS | Encounter Summary ---
Author Organization [facility] Address [address] [facility] [place] [address] Care Team Providers Care Administrative Professional Name Role Phone Emerald Sanchez MD Unavailable Emerald Sanchez MD Primary Care Provider [phone] Encounter Details Date Type Department Care Team (Late st Contact Info) Description 04/02/2024 Abstract [facility] [place] [facility] [address] [facility] 110 [place] [address] Emerald Sanchez MD [address] [place] [address] [place] [address] Social History Tobacco Use Types Packs/Day Years [...] often do you attend chur ch or adventist services? Never 04/18/2023 Do you belong to any clubs o r organizations such as worship groups, unions, fraternal or athletic groups, or [...] and heating? Not hard at all 04/18/2023 [facility] - [...] [facility] [address] [place] [address] 01/15/2025 4:00 PM EDT Clinical Support [facility] [address] [place] [address] Milton Duvall, DPM FACFAS 368 [place] [address] 02/28/2025 9:00 AM EST Office Visit [facility] [place] [facility] [address] [facility] 310 [place] [address] Jatin Cabrera MD 9[address] [facility] [address] [id number] 03/18/2025 9:00 AM EST Office Visit [facility] 112 [facility] 110 [place] [address] Emerald Sanchez MD [address] [facility] 110 [place] [address] documented as of this encounter Goals Goal [...] documented as of this encounter Care Teams Administrative Professional Relationship Specialty Start Date End Date Emerald Sanchez MD [address] [facility] 110 [place] [address] PCP - Medical [place] [employer] 10/22/18 04/23/99 Emerald Sanchez MD [address] [place] 110 [place] [address] PCP - General Family Medicine 08/30/22 documented as of this encounter
--- OUTSIDE RECORDS SUMMARY | 2025-01-09 12:11 | XMS_ITS | Encounter Summary ---
Author Organization [facility] Address [address] [facility] [place] [address] Care Team Providers Care Detective And Intelligence Analyst Name Role Phone Emerald Sanchez MD Unavailable Emerald Sanchez MD Primary Care Provider [phone] Encounter Details Date Type Department Care Team (Late st Contact Info) Description 08/20/2024 Abstract [facility] [place] [facility] [address] [facility] 110 [place] [address] Emerald Sanchez MD [address] [place] [address] [place] [address] Social History Tobacco Use Types Packs/Day Years [...] week 05/09/2024 How often do you attend tenriism or muslim serv ices? Never 05/09/2024 Do you belong [...] Recorded Patient Health Questionnaire-2 Score 0 08/01/2024 [facility] [...] No 05/09/2024 Housing Stability Vital Sign Answer Cleso e Recorded In the last 12 months, [...] in the past 12 m [facility], were you homeless or living in [...] [facility] [address] [place] [place] [address] 01/15/2025 4:00 PM EDT Clinical Support [facility] [address] [facility] [place] [address] Milton Duvall, DPM FACFAS 368 [facility] [place] [address] 02/28/2025 9:00 AM EST Office Visit [facility] [place] [facility] [address] [facility] 310 [place] [address] Jatin Cabrera MD 5574 [facility] [address] [address] 03/18/2025 9:00 AM EST Office Visit [facility] [place] [facility] [address] [facility] 110 [place] [address] Emerald Sanchez MD [address] [facility] 110 [place] [address] documented as of this encounter Goals Goal [...] documented as of this encounter Care Teams Detective And Intelligence Analyst Relationship Specialty Start Date End Date Emerald Sanchez MD [address] [facility] 110 [place] [address] PCP - Medical [place] [employer] 10/22/18 04/23/99 Emerald Sanchez MD [address] [facility] 110 [place] [address] PCP - General Family Medicine 08/30/22 documented as of this encounter
--- OUTSIDE RECORDS SUMMARY | 2025-01-09 12:11 | XMS_ITS | Encounter Summary ---
Author Organization [facility] Address [address] [facility] [place] [address] Care Team Providers Care Microsoft Dynamics Developer Name Role Phone Emerald Sanchez MD Unavailable Emerald Sanchez MD Primary Care Provider [phone] Encounter Details Date Type Department Care Team (Late st Contact Info) Description 03/29/2024 Abstract [facility] [address] [facility] [address] Darwin Starr DO [address] [facility] [address] Carlyle [facility]anc[facility], [facility] Social History Tobacco Use Types Packs/Day [...] often do you attend chur ch or confucianist services? Never 04/18/2023 Do you [...] and heating? Not hard at all 04/18/2023 [facility] of Occupat ional Health - Occupational Stress [...] in a chcf (including now)? No 04/18/2023 Comments No Sex and Gender Information Value Date Recorded Sex Assigned at Not on file Legal Sex Female 7:29 PM EDT Gender Identity Not on file Sexual Orientation Not on file documented as of this encounter Plan of Treatment Upcoming Encounters Date Type Department Care Team (Late st Contact Info) Description 01/14/2025 6:00 PM EDT Ancillary Procedure [facility] [facility] [address] [facility] [place] [address] 01/15/2025 4:00 PM EDT Clinical Support [facility] 368 [place] [address] Milton Duvall, DPM FACFAS 368 [place] [address] 02/28/2025 9:00 AM EST Office Visit [facility] [place] [facility] [address] [facility] 310 [place] [address] Jatin Cabrera MD 3200 [facility] [address] [address] 03/18/2025 9:00 AM EST Office Visit [facility] [place] [facility] [address] [facility] 110 [place] [address] Emerald Sanchez MD [address] [facility] 110 [place] [address] documented as of this encounter Goals Goal [...] documented as of this encounter Care Teams Microsoft Dynamics Developer Relationship Specialty Start Date End Date Emerald Sanchez MD [address] [facility] 110 [place] [address] PCP - Medical [place] [employer] 10/22/18 04/23/99 Emerald Sanchez MD [address] [facility] 110 [place] [address] PCP - General Family Medicine 08/30/22 documented as of this encounter
--- OUTSIDE RECORDS SUMMARY | 2025-01-09 12:12 | XMS_ITS | Encounter Summary ---
Author Organization [facility] Address [address] [place] [address] Care Team Providers Care Levi Maker Name Role Phone Emerald Sanchez MD Primary Care Provider [phone] Deena Osorio FARM GENERAL MANAGER Unavailable [phone] Darwin Starr DO Unavailable [phone] Source Comments In the event this information is protected by the Federal Confidentiality of Alcohol and Drug AbusePatient Records regulations: The Federal rules restrict any use of the information to criminally investigate or prosecute any alcohol or drug abuse patient.[facility] Encounter Details Date Type Department Care Team (Late st Contact Info) Description 06/29/2022 GI Preprocedure Call Ambulatory Surgery [address] [place] [address] [place] [address] [place] [address] Social History Tobacco Use Types Packs/Day Years [...] N ot on file 05/27/2022 Data from: https://www.neighborhoodatlas.medicine.[facility].edu/. Last address used for calculation [address] 05/27/2022 Comments No Sex and Gender Information Value Date Recorded Sex Assigned at Not on file Legal Sex Female 9:05 PM EDT Gender Identity Female 06/08/2021 8:30 AM EST Sexual Orientation Not on file documented as of this encounter Plan of Treatment Not on file documented as of this encounter Visit Diagnoses Not on filedocumented in this encounter Additional Health Concerns Infection Onset Date Last Indicated Resolved Time C. difficile 05/22/2024 05/22/2024 06/21/2024 8:51 PM EST documented as of this encounter Care Teams Levi Maker Relationship Specialty Start Date End Date Emerald Sanchez MD [address] [facility] 110 [place] [address] PCP - General Family Medicine 03/27/19 Deena Osorio APRN [address] [facility] 110 [place] [address] Referring Family Medicine 04/03/24 Darwin Starr DO [address] [facility] [place] [address] Referring Occupational Health Nurse 07/02/24 documented as of this encounter
--- OUTSIDE RECORDS SUMMARY | 2025-01-09 12:12 | XMS_ITS | Encounter Summary ---
Author Organization [facility] Address [address] [place] [address] Care Team Providers Care Preschool Special Education Teacher Name Role Phone Emerald Sanchez MD Unavailable Emerald Sanchez MD Primary Care Provider [phone] Encounter Details Date Type Department Care Team (Late st Contact Info) Description 02/14/2023 Abstract [facility] [place] [facility] [address] [facility] 110 [place] [address] Emerald Sanchez MD [address] [place] [address] [place] [address] Social History Tobacco Use Types Packs/Day Years [...] [facility] [address] [place] [address] 01/15/2025 4:00 PM EDT Clinical Support [facility] [address] [place] [address] Milton Duvall, DPM FACFAS [address] [facility] [place] [address] 02/28/2025 9:00 AM EST Office Visit [facility] [place] [facility] [address] [facility] 310 [place] [address] Jatin Cabrera MD [address] [id number] 03/18/2025 9:00 AM EST Office Visit [facility] [place] [facility] [address] [facility] 110 [place] [address] Emerald Sanchez MD [address] [facility] 110 [place] [address] documented as of this encounter Visit Diagnoses Not on filedocumented in this encounter Care Teams Preschool Special Education Teacher Relationship Specialty Start Date End Date Emerald Sanchez MD [address] [facility] 110 [place] [address] PCP - Medical [place] [employer] 10/22/18 04/23/99 Emerald Sanchez MD [address] [facility] 110 [place] [address] PCP - General Family Medicine 08/30/22 documented as of this encounter
--- OUTSIDE RECORDS SUMMARY | 2025-01-09 12:12 | XMS_ITS | Encounter Summary ---
Author Organization [facility] Healthcare Address [address] [place] [address] Care Team Providers Care Story Editor Name Role Phone Emerald Sanchez MD Unavailable Emerald Sanchez MD Primary Care Provider [phone] Encounter Details Date Type Department Care Team (Late st Contact Info) Description 12/10/2024 Abstract [facility] POPULATION HEALTH [address] [place] [address] Gifty Mireles LPN 112 [facility] 110 [place] [address] Social History Tobacco Use Types Packs/Day Years [...] week 05/09/2024 How often do you attend jew or holiness serv ices? Never 05/09/2024 Do you belong [...] Recorded Patient Health Questionnaire-2 Score 4 10/08/2024 [facility] - Occupational Stress Questionnaire Answer [...] any time in the past 12 m [facility], were you homeless or living in [...] Ancillary Procedure [facility] [place] [facility] [address] [place] [address] 01/15/2025 4:00 PM EDT Clinical Support [facility] POD 368 [facility] [place] [address] Milton Duvall, DPM FACFAS 368 [facility] [place] [address] 02/28/2025 9:00 AM EST Office Visit [facility] [place] [facility] [address] [facility] 310 [place] [address] Jatin Cabrera MD 0080 [facility] [address] [place] [address] 03/18/2025 9:00 AM EST Office Visit [facility] [place] [facility] [address] [facility] 110 [place] [address] Emerald Sanchez MD 112 [facility] 110 [place] [address] documented as of this encounter Goals Goal [...] documented as of this encounter Care Teams Story Editor Relationship Specialty Start Date End Date Emerald Sanchez MD 112 [facility] 110 [place] [address] PCP - Medical [place] Commercial 10/22/18 04/23/99 Emerald Sanchez MD 112 [facility] 110 [place] [address] PCP - General Family Medicine 08/30/22 documented as of this encounter
--- OUTSIDE RECORDS SUMMARY | 2025-01-09 12:12 | XMS_ITS | Encounter Summary ---
Author Organization [facility] Address [address] [facility] [place] [address] Care Team Providers Care Sales Enablement Lead Name Role Phone Emerald Sanchez MD Unavailable Emerald Sanchez MD Primary Care Provider [phone] Encounter Details Date Type Department Care Team (Late st Contact Info) Description 04/03/2024 Abstract [facility] [place] [facility] [address] [facility] 110 [place] [address] Emerald Sanchez MD [address] [place] 110 [place] [address] Social History Tobacco Use Types Packs/Day Years [...] any clubs o r organizations such as gnosticist groups, unions, fraternal or athletic groups, or [...] and heating? Not hard at all 04/18/2023 [facility] Occupat ional Health [...] [facility] [address] [place] [address] 01/15/2025 4:00 PM EDT Clinical Support N[facility] NMA POD 368 [place] [address] Milton Duvall, DPM FACFAS 368 [place] [address] 02/28/2025 9:00 AM EST Office Visit [facility] [place] [facility] [address] [facility] 310 [place] [address] Jatin Cabrera MD 9011 [facility] [address] [id number] 03/18/2025 9:00 AM EST Office Visit [facility] 112 [facility] 110 [place] [address] Emerald Sanchez MD [address] [facility] 110 [place] [address] documented as of this encounter Goals Goal [...] documented as of this encounter Care Teams Sales Enablement Lead Relationship Specialty Start Date End Date Emerald Sanchez MD [address] [facility] 110 [place] [address] PCP - Medical [place] Commercial 10/22/18 04/23/99 Emerald Sanchez MD [address] [place] 110 [place] [address] PCP - General Family Medicine 08/30/22 documented as of this encounter
--- OUTSIDE RECORDS SUMMARY | 2025-01-09 12:12 | XMS_ITS | Encounter Summary ---
Author Organization [facility] Address [address] [place] [address] Care Team Providers Care Hold Worker Name Role Phone Emerald Sanchez MD Unavailable Emerald Sanchez MD Primary Care Provider Encounter Details Date Type Department Care Team (Late st Contact Info) Description 02/06/2023 Abstract [facility] [place] [facility] [address] [facility] 110 [place] [address] Sandy Hammond, VINH [address] [facility] 110 [place] [address] Social History Tobacco Use Types Packs/Day Years [...] Description 01/14/2025 6:00 PM EDT Ancillary Procedure [facility] [address] [place] [place] [address] 01/15/2025 4:00 PM EDT Clinical Support [facility] NMA POD [address] [place] [address] Milton Duvall, DPM FACFAS 368 [facility] [place] [address] 02/28/2025 9:00 AM EST Office Visit [facility] [place] [facility] [address] [facility] 310 [place] [address] Jatin Cabrera MD [address] [id number] 03/18/2025 9:00 AM EST Office Visit [facility] [place] [facility] [address] [facility] 110 [place] [address] Emerald Sanchez MD [address] [facility] 110 [place] [address] documented as of this encounter Visit Diagnoses Not on filedocumented in this encounter Care Teams Hold Worker Relationship Specialty Start Date End Date Emerald Sanchez MD [address] [facility] 110 [place] [address] PCP - Medical [place] Commercial 10/22/18 04/23/99 Emerald Sanchez MD [address] [facility] 110 [place] [address] PCP - General Family Medicine 08/30/22 documented as of this encounter
--- OUTSIDE RECORDS SUMMARY | 2025-01-09 12:12 | XMS_ITS | Encounter Summary ---
Author Organization [facility] Address [address] [facility] [place] [address] Care Team Providers Care Analog Ic Design Architect Name Role Phone Emerald Sanchez MD Unavailable Emerald Sanchez MD Primary Care Provider [phone] Encounter Details Date Type Department Care Team (Late st Contact Info) Description 08/19/2024 Abstract [facility] [place] [facility] [address] [facility] 110 [place] [address] Emerald Sanchez MD [address] [place] 110 [place] [address] Social History Tobacco Use Types Packs/Day Years [...] week 05/09/2024 How often do you attend episcopalian or synagogue serv ices? Never 05/09/2024 Do [...] in the past 12 m [facility], were you homeless or living [...] [facility] [address] [place] [address] 01/15/2025 4:00 PM EDT Clinical Support [facility] N[facility] POD 368 [facility] [place] [address] Milton Duvall, DPM FACFAS 368 [facility] [place] [address] 02/28/2025 9:00 AM EST Office Visit [facility] [place] [facility] [address] [facility] 310 [place] [address] Jatin Cabrera MD 3651 [facility] [address] [address] 03/18/2025 9:00 AM EST Office Visit [facility] [place] [facility] [address] [facility] 110 [place] [address] Emerald Sanchez MD [address] [facility] 110 [place] [address] documented as of this encounter Goals Goal [...] documented as of this encounter Care Teams Analog Ic Design Architect Relationship Specialty Start Date End Date Emerald Sanchez MD [address] [facility] 110 [place] [address] PCP - Medical [place] Commercial 10/22/18 04/23/99 Emerald Sanchez MD [address] [facility] 110 [place] [address] PCP - General Family Medicine 08/30/22 documented as of this encounter
--- OUTSIDE RECORDS SUMMARY | 2025-01-09 12:12 | XMS_ITS | Encounter Summary ---
Author Organization [facility] Address [address] [place] [address] Care Team Providers Care Hat Maker Name Role Phone Emerald Sanchez MD Unavailable Emerald Sanchez MD Primary Care Provider [phone] Encounter Details Date Type Department Care Team (Late st Contact Info) Description 02/07/2023 Orders Only [facility] [place] [facility] [address] [place] 110 [place] [address] A, Unknown Practice [address] [place], [place] [address] Social History Tobacco Use Types Packs/Day Years [...] [facility] [address] [place] [address] 01/15/2025 4:00 PM EDT Clinical Support [facility] NMA POD 368 [place] [address] Milton Duvall, DPM FACFAS [address] [place] [address] 02/28/2025 9:00 AM EST Office Visit [facility] [place] [facility] [address] [facility] 310 [place] [address] Jatin Cabrera MD [address], [place] [id number] 03/18/2025 9:00 AM EST Office Visit [facility] [place] [facility] [address] [facility] 110 [place] [address] Emerald Sanchez MD [address] [facility] 110 [place] [address] documented as of this encounter Procedures Procedure [...] on filedocumented in this encounter Care Teams Hat Maker Relationship Specialty Start Date End Date Emerald Sanchez MD [address] [facility] 110 [place] [address] PCP - Medical [place] Commercial 10/22/18 04/23/99 Emerald Sanchez MD [address] [facility] 110 [place] [address] PCP - General Family Medicine 08/30/22 documented as of this encounter
--- OUTSIDE RECORDS SUMMARY | 2025-01-09 12:12 | XMS_ITS | Encounter Summary ---
Author Organization [facility] Address [address] [facility] [place] [address] Care Team Providers Care Tea Taster Name Role Phone Emerald Sanchez MD Unavailable Emerald Sanchez MD Primary Care Provider [phone] Encounter Details Date Type Department Care Team (Late st Contact Info) Description 06/10/2024 Abstract [facility] [place] [facility] [address] [facility] 110 [place] [address] Emerald Sanchez MD [address] [place] 110 [place] [address] Social History Tobacco Use Types Packs/Day Years [...] week 05/09/2024 How often do you attend hindu or zoroastrianism serv ices? Never 05/09/2024 Do you belong to any clubs o r organizations such as hindu groups, unions, fraternal or athletic groups, or [...] and heating? Not hard at all 05/09/2024 [facility] - Occupational Stress Questionnaire [...] any time in the past 12 m [facility], were you homeless or [...] [facility] [address] [place] [address] 01/15/2025 4:00 PM EDT Clinical Support [facility] NMA POD 368 [facility] [address] Milton Duvall, DPM FACFAS 368 [facility] [place] [address] 02/28/2025 9:00 AM EST Office Visit [facility] [place] [facility] [address] [facility] 310 [place] [address] Jatin Cabrera MD 4959 [facility] [address] [address] 03/18/2025 9:00 AM EST Office Visit [facility] [place] [facility] [address] [facility] 110 [place] [address] Emerald Sanchez MD [address] [facility] 110 [place] [address] documented as of this encounter Goals Goal [...] documented as of this encounter Care Teams Tea Taster Relationship Specialty Start Date End Date Emerald Sanchez MD [address] [facility] 110 [place] [address] PCP - Medical [place] Commercial 10/22/18 04/23/99 Emerald Sanchez MD 112 [address] [facility] 110 [place] [address] PCP - General Family Medicine 08/30/22 documented as of this encounter
--- OUTSIDE RECORDS SUMMARY | 2025-01-09 12:12 | XMS_ITS | Encounter Summary ---
Author Organization [facility] Address [address] [place] [address] Care Team Providers Care Direct Marketing Representative Name Role Phone Emerald Sanchez MD Unavailable Emerald Sanchez MD Primary Care Provider [phone] Encounter Details Date Type Department Care Team (Late st Contact Info) Description 03/29/2023 Abstract [facility] [address] [facility] 110 [place] [address] Emerald Sanchez MD [address] [place] 110 [place] [address] Social History Tobacco Use Types Packs/Day Years [...] Procedure [facility] [place] [facility] [address] [place] [address] 01/15/2025 4:00 PM EDT Clinical Support [facility] NMA POD 368 [facility] [place] [address] Milton Duvall, DPM FACFAS 368 [facility] [place] [address] 02/28/2025 9:00 AM EST Office Visit [facility] [place] [facility] [address] [facility] 310 [place] [address] Jatin Cabrera MD 3914 [facility] [address] [address] 03/18/2025 9:00 AM EST Office Visit N[facility]S [place] [facility] [address] [facility] 110 [place] [address] Emerald Sanchez MD [address] [facility] 110 [place] [address] documented as of this encounter Visit Diagnoses Not on filedocumented in this encounter Care Teams Direct Marketing Representative Relationship Specialty Start Date End Date Emerald Sanchez MD [address] [place] [facility] 110 [place] [address] PCP - Medical [place] Commercial 10/22/18 04/23/99 Emerald Sanchez MD [address] [place] [facility] 110 [place] [address] PCP - General Family Medicine 08/30/22 documented as of this encounter
--- OUTSIDE RECORDS SUMMARY | 2025-01-09 12:12 | XMS_ITS | Encounter Summary ---
Author Organization [facility] Address [address] [facility] [place] [address] Care Team Providers Care Chief Arson Division Name Role Phone Emerald Sanchez MD Unavailable Emerald Sanchez MD Primary Care Provider [phone] Encounter Details Date Type Department Care Team (Late st Contact Info) Description 03/29/2024 Abstract [facility] [place] [facility] [address] [facility] 110 [place] [address] Emerald Sanchez MD [address] [place] 110 [place] [address] Social History Tobacco Use Types Packs/Day Years [...] [facility] [address] [place] [address] 01/15/2025 4:00 PM EDT Clinical Support N[facility] NMA POD 368 [place] [address] Milton Duvall, DPM FACFAS 368 [place] [address] 02/28/2025 9:00 AM EST Office Visit [facility] [place] [facility] [address] [facility] 310 [place] [address] Jatin Cabrera MD 5053 [facility] [address] [id number] 03/18/2025 9:00 AM EST Office Visit [facility] 112 [facility] 110 [place] [address] Emerald Sanchez MD [address] [facility] 110 [place] [address] documented as of this encounter Goals Goal [...] documented as of this encounter Care Teams Chief Arson Division Relationship Specialty Start Date End Date Emerald Sanchez MD [address] [facility] 110 [place] [address] PCP - Medical [place] Commercial 10/22/18 04/23/99 Emerald Sanchez MD [address] [place] 110 [place] [address] PCP - General Family Medicine 08/30/22 documented as of this encounter
--- OUTSIDE RECORDS SUMMARY | 2025-01-09 12:12 | XMS_ITS | Encounter Summary ---
Author Organization [facility] Healthcare Address [address] [place] [address] Care Team Providers Care Log Washer Name Role Phone Emerald Sanchez MD Unavailable Emerald Sanchez MD Primary Care Provider [phone] Encounter Details Date Type Department Care Team (Late st Contact Info) Description 07/26/2024 Abstract [facility] POPULATION HEALTH [address] [address] Gifty Mireles LPN 112 [facility] 110 [place] [address] Social History Tobacco Use Types Packs/Day Years [...] week 05/09/2024 How often do you attend orthodox or bahai serv ices? Never 05/09/2024 Do you belong [...] Recorded Patient Health Questionnaire-2 Score 0 07/04/2024 [facility] of Occupat ional [facility] - Occupational Stress Questionnaire Answer [...] in a jail (including now)? No 04/18/2023 Housing Stability Vital Sign Answer Celso e Recorded In the last 12 months, was t here a time when you were not able to pay the mortgage or rent on time? No 05/09/2024 In the past 12 months, how m any times have you moved where you were living? 0 05/09/2024 At any time in the past 12 m [facility], were you homeless or living in a jail (including now)? No 05/09/2024 Comments No Sex [...] [place] [facility] [address] [place] [address] 01/15/2025 4:00 PM EDT Clinical Support [facility] N[facility] POD 368 [facility] [place] [address] Milton Duvall, DPM FACFAS 368 [facility] [place] [address] 02/28/2025 9:00 AM EST Office Visit [facility] [place] [facility] [address] [facility] 310 [place] [address] Jatin Cabrera MD [address] [facility] [address] [place] [address] 03/18/2025 9:00 AM EST Office Visit [facility] [place] [facility] [address] [facility] 110 [place] [address] Emerald Sanchez MD [address] [facility] 110 [place] [address] documented as of this encounter Goals Goal [...] documented as of this encounter Care Teams Log Washer Relationship Specialty Start Date End Date Emerald Sanchez MD [address] [facility] 110 [place] [address] PCP - Medical [place] Commercial 10/22/18 04/23/99 Emerald Sanchez MD [address] [facility] 110 [place] [address] PCP - General Family Medicine 08/30/22 documented as of this encounter
--- OUTSIDE RECORDS SUMMARY | 2025-01-09 12:12 | XMS_ITS | Encounter Summary ---
Author Organization [facility] Address [address] [facility] [place] [address] Care Team Providers Care Four Roll Calender Operator Name Role Phone Emerald Hagen MD Unavailable Emerald Hagen MD Primary Care Provider [phone] Encounter Details Date Type Department Care Team [...] week 04/18/2023 How often do you attend [facility] or holiness services? Never 04/18/2023 Do you [...] Ancillary Procedure [facility] [place] [facility] 2800 [facility] [place] [address] 01/15/2025 4:00 PM EDT Clinical Support N[facility] NMA POD 368 [place] [address] Milton Duvall, DPM FACFAS 368 [place] [address] 02/28/2025 9:00 AM EST Office Visit [facility] [address] [facility] 310 [place] [address] Jatin Cabrera MD [address] [facility] [address] [address] 03/18/2025 9:00 AM EST Office Visit N[facility]S [place] Scott [facility] [address] [facility] 110 [place] [address] Emerald Hagen MD [address] [facility] 110 [place], [place] [address] documented as of this encounter Goals Goal [...] AM EST Narrative 03/06/2024 7:23 [place] [address] XRay Report Signed Patient: BELGICA BARNETT MR#: [id number] : 1990 Acct:[id number] Age/Sex: 33 / F ADM Date: 03/04/24 Loc: EC Attending Dr: Laurie Navas M.D. Ordering Physician: Laurie Navas M.D. Date of Service: 03/04/24 Procedure(s): XR ankle RT min 3V Accession Number(s): [id number] cc: EMERALD HAGEN ; Laurie Navas M.D. [address] [address] Patient Name: BELGICA BARNETT MRN: [id number] date: 1990 Sex: F Assigned Patient Location: Current Patient Location: Accession/Order Number: [id number] Exam Date: 03/04/2024 08:02 Report Date: 03/06/2024 [...] M.D. Signed By: 03/06/24722 DD/ 9 TD/TT: Stitcher Operator: Procedure Note Radiology, Radiologist, MD - 03/06/2024 [place] [address] XRay Report Signed Patient: BELGICA BARNETT AMR#: [id number] : 1990Acct:[id number] Age/Sex: 33 / FADM Date: 03/04/24 Loc: EC Attending Dr: Laurie Navas M.D. Ordering Physician: Laurie Navas M.D. Date of Service: 03/04/24 Procedure(s): XR ankle RT min 3V Accession Number(s): [id number] cc: EMERALD HAGEN ; Laurie Navas M.D. [place] [address] Patient Name: BELGICA BARNETT MRN: [id number] date: 1990 Sex: F Assigned Patient Location: Current Patient Location: Accession/Order Number: [id number] Exam Date: 03/04/2024 08:02 Report Date: 03/06/2024 [...] 07:20 Dictated By: Jackson Butler M.D. Signed By:03/06/2423 DD/ 9 TD/TT: Stitcher Operator: us Generic External Data Provider [facility] Final Result documented in this encounter Visit Diagnoses Not on filedocumented in this encounter Additional Health Concerns Active Problems Noted Date Diagnosed Date Patient on antidepressant monitoring plan 2023 Baseline PHQ-9 05/08/2023 documented as of this encounter Care Teams Four Roll Calender Operator Relationship Specialty Start Date End Date Emerald Hagen MD 112 [facility] 110 [place] [address] PCP - Medical [place] Commercial 10/22/18 04/23/99 Emerald Hagen MD 112 [facility] 110 [place] [address] PCP - General Family Medicine 08/30/22 documented as of this encounter
--- OUTSIDE RECORDS SUMMARY | 2025-01-09 12:12 | XMS_ITS | Encounter Summary ---
Author Organization [facility] Address [address] [facility] [place] [address] Care Team Providers Care Fitter Tacker Name Role Phone Emerald Sanchez MD Unavailable Emerald Sanchez MD Primary Care Provider [phone] Encounter Details Date Type Department Care Team (Late st Contact Info) Description 09/02/2024 Abstract [facility] [address] [facility] 110 [place] [address] Emerald Sanchez MD [address] [place] 110 [place] [address] Social History Tobacco Use Types Packs/Day Years [...] week 05/09/2024 How often do you attend bahai or mosque serv ices? Never 05/09/2024 Do you belong to any clubs o r organizations such as bahai groups, unions, fraternal or athletic groups, or [...] Recorded Patient Health Questionnaire-2 Score 0 09/02/2024 [facility] [...] any time in the past 12 [facility], were you homeless or living in [...] [facility] [address] [place] [address] 01/15/2025 4:00 PM EDT Clinical Support N[facility] N[facility] POD [address] [place] [address] Milton Duvall, DPM FACFAS 368 [facility] [place] [address] 02/28/2025 9:00 AM EST Office Visit [facility] [place] [facility] [address] [facility] [place] 310 [place] [address] Jatin Cabrera MD [address] [facility] [address] [id number] 03/18/2025 9:00 AM EST Office Visit [facility] [address] [facility] 110 [place] [address] Emerald Sanchez MD 112 [facility] 110 [place] [address] documented as of this encounter Goals Goal [...] documented as of this encounter Care Teams Fitter Tacker Relationship Specialty Start Date End Date Emerald Sanchez MD 112 [facility] 110 [place] [address] PCP - Medical [place] Commercial 10/22/18 04/23/99 Emerald Sanchez MD 112 [facility] 110 [place] [address] PCP - General Family Medicine 08/30/22 documented as of this encounter
--- OUTSIDE RECORDS SUMMARY | 2025-01-09 12:12 | XMS_ITS | Encounter Summary ---
Author Organization [facility] Address [address] [place] [address] Care Team Providers Care Exercise Rider Name Role Phone Emerald Sanchez MD Unavailable Emerald Sanchez MD Primary Care Provider [phone] Encounter Details Date Type Department Care Team (Late st Contact Info) Description 02/08/2023 Orders Only N[facility] [place] [address] [place] 110 [place] [address] A, Unknown Practice [address] [place], [place] [address] Social History Tobacco Use Types Packs/Day Years [...] [facility] [address] [place] [address] 01/15/2025 4:00 PM EDT Clinical Support N[facility] N[facility] POD [address] [place] [address] Milton Duvall, DPM FACFAS [address] [place] [address] 02/28/2025 9:00 AM EST Office Visit [facility] [place] [facility] [address] [facility] 310 [place] [address] Jatin Cabrera MD [address], [place] [address] 03/18/2025 9:00 AM EST Office Visit [facility] [place] [facility] [address] [facility] 110 [place] [address] Emerald Sanchez MD [address] [facility] 110 [place] [address] documented as of this encounter Procedures Procedure Name Priority Date/Time Associated Diagnosis Comments SCANNED LABS Routine 02/08/2023 9:18 AM EDT documented in this encounter Results * SCANNED LABS (02/08/2023 9:18 AM EDT) Unknown Practice A LAB CHG PERFORMABLES Final Re sult documented in this encounter Visit Diagnoses Not on filedocumented in this encounter Care Teams Exercise Rider Relationship Specialty Start Date End Date Emerald Sanchez MD 112 [place] [facility] 110 [place] [address] PCP - Medical [place] Commercial 10/22/18 04/23/99 Emerald Sanchez MD [address] [facility] 110 [place] [address] PCP - General Family Medicine 08/30/22 documented as of this encounter
--- OUTSIDE RECORDS SUMMARY | 2025-01-09 12:12 | XMS_ITS | Encounter Summary ---
Author Organization [facility] Address [address] [place] [address] Care Team Providers Care Computer Sciences Professor Name Role Phone Emerald Sanchez MD Unavailable Emerald Sanchez MD Primary Care Provider [phone] Encounter Details Date Type Department Care Team (Late st Contact Info) Description 02/07/[address] [place] [facility] [address] [facility] 110 [place] [address] Emerald Sanchez MD [address] [place] 110 [place] [address] Social History Tobacco Use Types Packs/Day Years [...] [facility] [address] [place] [address] 01/15/2025 4:00 PM EDT Clinical Support [facility] N[facility] POD [address] [place] [address] Milton Duvall, DPM FACFAS [address] [facility] [place] [address] 02/28/2025 9:00 AM EST Office Visit [facility] [place] [facility] [address] [facility] 310 [place] [address] Jatin Cabrera MD [address] [id number] 03/18/2025 9:00 AM EST Office Visit [facility] [place] [facility] [address] [facility] 110 [place] [address] Emerald Sanchez MD [address] [facility] 110 [place] [address] documented as of this encounter Visit Diagnoses Not on filedocumented in this encounter Care Teams Computer Sciences Professor Relationship Specialty Start Date End Date Emerald Sanchez MD [address] [facility] 110 [place] [address] PCP - Medical [place] Commercial 10/22/18 04/23/99 Emerald Sanchez MD [address] [facility] 110 [place] [address] PCP - General Family Medicine 08/30/22 documented as of this encounter
--- OUTSIDE RECORDS SUMMARY | 2025-01-09 12:12 | XMS_ITS | Encounter Summary ---
Author Organization [facility] Address [address] [place] [address] Care Team Providers Care Asset Administrator Name Role Phone Emerald Sanchez MD Unavailable Emerald Sanchez MD Primary Care Provider [phone] Encounter Details Date Type Department Care Team (Late st Contact Info) Description 02/13/2023 Abstract [facility] [place] [facility] [address] [facility] 110 [place] [address] Emerald Sanchez MD [address] [place] 110 [place] [address] Social History Tobacco Use Types Packs/Day Years [...] [facility] [address] [place] [address] 01/15/2025 4:00 PM EDT Clinical Support [facility] POD [address] [place] [address] Milton Duvall, DPM FACFAS [address] [facility] [place] [address] 02/28/2025 9:00 AM EST Office Visit [facility] [place] [facility] [address] [facility] 310 [place] [address] Jatin Cabrera MD [address] [id number] 03/18/2025 9:00 AM EST Office Visit [facility] [place] [facility] [address] [facility] 110 [place] [address] Emerald Sanchez MD [address] [facility] 110 [place] [address] documented as of this encounter Visit Diagnoses Not on filedocumented in this encounter Care Teams Asset Administrator Relationship Specialty Start Date End Date Emerald Sanchez MD [address] [facility] 110 [place] [address] PCP - Medical [place] Commercial 10/22/18 04/23/99 Emerald Sanchez MD [address] [facility] 110 [place] [address] PCP - General Family Medicine 08/30/22 documented as of this encounter
--- OUTSIDE RECORDS SUMMARY | 2025-01-09 12:12 | XMS_ITS | Encounter Summary ---
Author Organization [facility] Address [address] [facility] [place] [address] Care Team Providers Care Cpo Name Role Phone Emerald Sanchez MD Unavailable Emerald Sanchez MD Primary Care Provider [phone] Encounter Details Date Type Department Care Team (Late st Contact Info) Description 04/03/2024 Abstract [facility] [place] [facility] [address] [facility] 110 [place] [address] Emerald Sanchez MD [address] [place] 110 [place] [address] Social History Tobacco Use Types Packs/Day Years [...] any clubs o r organizations such as denominational groups, unions, fraternal or athletic groups, or [...] and heating? Not hard at all 04/18/2023 [facility] [...] [facility] [address] [place] [address] 01/15/2025 4:00 PM EDT Clinical Support [facility] N[facility] POD 368 [place] [address] Milton Duvall, DPM FACFAS 368 [place] [address] 02/28/2025 9:00 AM EST Office Visit [facility] [place] [facility] [address] [facility] 310 [place] [address] Jatin Cabrera MD 3646 [facility] [address] [id number] 03/18/2025 9:00 AM EST Office Visit [facility] 112 [facility] 110 [place] [address] Emerald Sanchez MD [address] [facility] 110 [place] [address] documented as of this encounter Goals Goal [...] documented as of this encounter Care Teams Cpo Relationship Specialty Start Date End Date Emerald Sanchez MD [address] [facility] 110 [place] [address] PCP - Medical [place] Commercial 10/22/18 04/23/99 Emerald Sanchez MD [address] [place] 110 [place] [address] PCP - General Family Medicine 08/30/22 documented as of this encounter
--- OUTSIDE RECORDS SUMMARY | 2025-01-09 12:12 | XMS_ITS | Encounter Summary ---
Author Organization [facility] Address [address] [place] [address] Care Team Providers Care Second Chef Name Role Phone Emerald Sanchez MD Primary Care Provider [phone] Deean Osorio BULK INTAKE WORKER Unavailable [phone] Darwin Starr DO Unavailable [phone] Source Comments In the event this information is protected by the Federal Confidentiality of Alcohol and Drug AbusePatient Records regulations: The Federal rules restrict any use of the information to criminally investigate or prosecute any alcohol or drug abuse patient.[facility] Reason for Visit * Reason Comments Abstract CPP - NPAF abstract Encounter Details Date Type Department Care Team (Late st Contact Info) Description 10/07/2024 Abstract Gynecology [address] [place] [address] Emma Ying APRN.PROMOTION PRODUCER 9500 [facility] [place] [address] Abstract (CPP - NPAF abstract/) Social History [...] is lower risk 4 10/17/2022 Data from: https://www.neighborhoodatlas.medicine.[facility] [place]/. Last address used for calculation [address] 10/17/2022 Comments No Sex and Gender Information Value Date Recorded Sex Assigned at Not on file Legal Sex Female 9:05 PM EDT Gender Identity Female 06/08/2021 8:30 AM EST Sexual Orientation Not on file documented as of this encounter Plan of Treatment Not on file documented as of this encounter Goals Goal Patient Goal Type Associated Problems Recent Progress Patient-Stated? Author Blood Pressure < 140/90 Blood Pressure 132/94( 025 9:14 AM EDT) No Solo Mora MD documented as of this encounter Visit Diagnoses Not on filedocumented in this encounter Care Teams Second Chef Relationship Specialty Start Date End Date Emerald Sanchez MD [address] [facility] 110 [place] [address] PCP - General Family Medicine 03/27/19 Deena Osorio APRN [address] [place] 110 [place] [address] Referring Family Medicine 04/03/24 Darwin Starr DO [address] [place] [address] Dr Carlyle [place], [place] [address] Referring Manager Investigations 07/02/24 documented as of this encounter
--- OUTSIDE RECORDS SUMMARY | 2025-01-09 12:12 | XMS_ITS | Encounter Summary ---
Author Organization [facility] Address [address] [facility] [place] [address] Care Team Providers Care Spike Machine Heater Name Role Phone Emerald Sanchez MD Unavailable Emerald Sanchez MD Primary Care Provider [phone] Encounter Details Date Type Department Care Team (Late st Contact Info) Description 12/28/2022 Abstract [facility] [address] [facility] 100 [place] [address] Adriana Galaviz LPN 240 [facility] [place] [address] [place] [address] Social History Tobacco Use Types Packs/Day Years [...] [facility] [address] [place] [address] 01/15/2025 4:00 PM EDT Clinical Support [facility] N[facility] POD 368 [facility] [address] Milton Duvall, DPM FACFAS 368 [facility] [place] [address] 02/28/2025 9:00 AM EST Office Visit [facility] [place] [facility] [address] [facility] 310 [place] [address] Jatin Cabrera MD 1386 [facility] [address] [place] [address] 03/18/2025 9:00 AM EST Office Visit [facility] [place] [facility] [address] [facility] 110 [place] [address] Emerald Sanchez MD 112 [place] [facility] 110 [place] [address] documented as of this encounter Visit Diagnoses Not on filedocumented in this encounter Care Teams Spike Machine Heater Relationship Specialty Start Date End Date Emerald Sanchez MD 112 [place] [facility] 110 [place] [address] PCP - Medical [place] Commercial 10/22/18 04/23/99 Emerald Sanchez MD 112 [place] [facility] 110 [place] [address] PCP - General Family Medicine 08/30/22 documented as of this encounter
--- OUTSIDE RECORDS SUMMARY | 2025-01-09 12:12 | XMS_ITS | Encounter Summary ---
Author Organization [facility] Address [address] [facility] [place] [address] Care Team Providers Care Felt Hat Mellowing Machine Operator Name Role Phone Emerald Sanchez MD Unavailable Emerald Sanchez MD Primary Care Provider [phone] Encounter Details Date Type Department Care Team (Late st Contact Info) Description 01/22/2024 Abstract [facility] [place] [facility] [address] [facility] 110 [place] [address] Emerald Sanchez MD [address] [place] 110 [place] [address] Social History Tobacco Use Types Packs/Day Years [...] often do you attend chur ch or nondenominational services? Never 04/18/2023 Do you belong to [...] [facility] [address] [place] [address] 01/15/2025 4:00 PM EDT Clinical Support N[facility] NMA POD 368 [place] [address] Milton Duvall, DPM FACFAS 368 [place] [address] 02/28/2025 9:00 AM EST Office Visit [facility] [place] [facility] [address] [facility] 310 [place] [address] Jatin Cabrera MD 9571 [facility] [address] [id number] 03/18/2025 9:00 AM EST Office Visit [facility] 112 [facility] 110 [place] [address] Emerald Sanchez MD [address] [facility] 110 [place] [address] documented as of this encounter Goals Goal [...] documented as of this encounter Care Teams Felt Hat Mellowing Machine Operator Relationship Specialty Start Date End Date Emerald Sanchez MD [address] [facility] 110 [place] [address] PCP - Medical [place] Commercial 10/22/18 04/23/99 Emerald Sanchez MD [address] [place] 110 [place] [address] PCP - General Family Medicine 08/30/22 documented as of this encounter
--- OUTSIDE RECORDS SUMMARY | 2025-01-09 12:12 | XMS_ITS | Encounter Summary ---
Author Organization [facility] Address [address] [place] [address] Care Team Providers Care Drug Abuse Technician Name Role Phone Emerald Sanchez MD Unavailable Emerald Sanchez MD Primary Care Provider [phone] Encounter Details Date Type Department Care Team (Late st Contact Info) Description 03/29/2023 Abstract [facility] [address] [facility] 110 [place] [address] Emerald Sanchez MD [address] [place] 110 [place] [address] Social History Tobacco Use Types Packs/Day Years [...] Procedure [facility] [place] [facility] [address] [place] [address] 01/15/2025 4:00 PM EDT Clinical Support N[facility] NMA POD 368 [facility] [place] [place] [address] Milton Duvall, DPM FACFAS 368 [facility] [place] [address] 02/28/2025 9:00 AM EST Office Visit [facility] [place] [facility] [address] [facility] 310 [place] [address] Jatin Cabrera MD 8428 [facility] [address] [address] 03/18/2025 9:00 AM EST Office Visit N[facility] [facility] [address] [facility] 110 [place] [address] Emerald Sanchez MD 112 [facility] 110 [place] [address] documented as of this encounter Visit Diagnoses Not on filedocumented in this encounter Care Teams Drug Abuse Technician Relationship Specialty Start Date End Date Emerald Sanchez MD 112 [facility] 110 [place] [address] PCP - Medical [place] Commercial 10/22/18 04/23/99 Emerald Sanchez MD 112 [facility] 110 [place] [address] PCP - General Family Medicine 08/30/22 documented as of this encounter
--- OUTSIDE RECORDS SUMMARY | 2025-01-09 12:12 | XMS_ITS | Encounter Summary ---
Author Organization [facility] Address [address] [place] [address] Care Team Providers Care Clam Digger Name Role Phone Emerald Sanchez MD Unavailable Emerald Sanchez MD Primary Care Provider [phone] Encounter Details Date Type Department Care Team (Late st Contact Info) Description 02/14/2023 Abstract N[facility] [place] [facility] [address] [facility] 110 [place] [address] Emerald Sanchez MD [address] [place] 110 [place] [address] Social History Tobacco Use Types Packs/Day Years [...] [facility] [address] [place] [address] 01/15/2025 4:00 PM EDT Clinical Support N[facility] NMA POD [address] [place] [address] Milton Duvall, DPM FACFAS 368 [facility] [place] [address] 02/28/2025 9:00 AM EST Office Visit [facility] [place] [facility] [address] [facility] 310 [place] [address] Jatin Cabrera MD [address] [id number] 03/18/2025 9:00 AM EST Office Visit [facility] [place] [facility] [address] [facility] 110 [place] [address] Emerald Sanchez MD [address] [facility] 110 [place] [address] documented as of this encounter Visit Diagnoses Not on filedocumented in this encounter Care Teams Clam Digger Relationship Specialty Start Date End Date Emerald Sanchez MD [address] [facility] 110 [place] [address] PCP - Medical [place] Commercial 10/22/18 04/23/99 Emerald Sanchez MD [address] [facility] 110 [place] [address] PCP - General Family Medicine 08/30/22 documented as of this encounter
--- OUTSIDE RECORDS SUMMARY | 2025-01-09 12:12 | XMS_ITS | Encounter Summary ---
Author Organization [facility] Address [address] [place] [address] Care Team Providers Care Radiology Asst Name Role Phone Emerald Sanchez MD Primary Care Provider [phone] Deena Osorio RESEARCH FOOD TECHNOLOGIST Unavailable [phone] Darwin Starr DO Unavailable [phone] Source Comments In the event this information is protected by the Federal Confidentiality of Alcohol and Drug AbusePatient Records regulations: The Federal rules restrict any use of the information to criminally investigate or prosecute any alcohol or drug abuse patient.[facility] Encounter Details Date Type Department Care Team (Late st Contact Info) Description 11/08/2024 Patient Msg HOSP MAIN H060 [address] [place] [address] Provider, Ccf Sign up to manage your [...] is lower risk 4 10/17/2022 Data from: https://www.neighborhoodatlas.medicine.[facility].edu/. Last address used for calculation [address] [...] on filedocumented in this encounter Care Teams Radiology Asst Relationship Specialty Start Date End Date Emerald Sanchez MD [address] [place] 110 [place] [address] PCP - General Family Medicine 03/27/19 Deena Osorio APRN [address] [place] 110 [place] [address] Referring Family Medicine 04/03/24 Darwin Starr DO [address] [facility] [place] [address] Referring Lever Tender 07/02/24 documented as of this encounter
--- OUTSIDE RECORDS SUMMARY | 2025-01-09 12:12 | XMS_ITS | Encounter Summary ---
Author Organization [facility] Address [address] [place] [address] Care Team Providers Care Toaster Element Repairer Name Role Phone Emerald Sanchez MD Unavailable Emerald Sanchez MD Primary Care Provider [phone] Encounter Details Date Type Department Care Team (Late st Contact Info) Description 12/27/2022 Orders Only N[facility]S [place] [facility] 112 [facility] 110 [place] [address] A, Unknown Practice [address] [place], [place] [address] Social History Tobacco Use Types Packs/Day Years [...] [facility] [address] [place] [address] 01/15/2025 4:00 PM EDT Clinical Support N[facility] N[facility] POD 368 [facility] [place] [address] Milton Duvall, DPM FACFAS 368 [facility][Note 3] [place] [address] 02/28/2025 9:00 AM EST Office Visit [facility] [place] [facility] [address] [place] [address] [place] [address] Jatin Cabrera MD 8833 [facility] [address] [address] 03/18/2025 9:00 AM EST Office Visit N[facility]S [place] [facility] [address] [facility] 110 [place] [address] Emerald Sanchez MD [address] [facility] 110 [place] [address] documented as of this encounter Procedures Procedure [...] on filedocumented in this encounter Care Teams Toaster Element Repairer Relationship Specialty Start Date End Date Emerald Sanchez MD [address] [facility] 110 [place] [address] PCP - Medical [place] Commercial 10/22/18 04/23/99 Emerald Sanchez MD [address] [facility] 110 [place] [address] PCP - General Family Medicine 08/30/22 documented as of this encounter
--- OUTSIDE RECORDS SUMMARY | 2025-01-09 12:12 | XMS_ITS | Encounter Summary ---
Author Organization [facility] Address [address] [facility] [place] [address] Care Team Providers Care Court Stenographer Name Role Phone Emerald Sanchez MD Unavailable Emerald Sanchez MD Primary Care Provider [phone] Encounter Details Date Type Department Care Team (Late st Contact Info) Description 07/09/2024 Abstract [facility] [place] [facility] [address] [facility] 110 [place] [address] Emerald Sanchez MD [address] [place] 110 [place] [address] Social History Tobacco Use Types Packs/Day Years [...] week 05/09/2024 How often do you attend yarsani or pentecostal serv ices? Never 05/09/2024 Do you belong to any clubs o r organizations such as yarsani groups, unions, fraternal or athletic groups, or [...] Recorded Patient Health Questionnaire-2 Score 0 07/04/2024 [facility] [...] any time in the past 12 m [facility], were you homeless or living [...] [facility] [address] [place] [address] 01/15/2025 4:00 PM EDT Clinical Support [facility] [address] [facility] [place] [address] Milton Duvall, DPM FACFAS 368 [facility] [place] [address] 02/28/2025 9:00 AM EST Office Visit [facility] [place] [facility] [address] [facility] 310 [place] [address] Jatin Cabrera MD 7964 [facility] [address] [address] 03/18/2025 9:00 AM EST Office Visit [facility] [place] [facility] [address] [facility] 110 [place] [address] Emerald Sanchez MD [address] [facility] 110 [place] [address] documented as of this encounter Goals Goal Patient Goal Type Associated Problems Recent Progress Patient-Stated? Author Help patient manage antidepressant medication Care Plan Patient on antidepressant monitoring plan No Emerald Sanchez MD Baseline PHQ-9 Care Plan Baseline PHQ-9 No Emearld Sanchez MD documented as of this encounter Visit Diagnoses Not on filedocumented in this encounter Additional Health Concerns Active Problems Noted Date Diagnosed Date Patient on antidepressant monitoring plan 2023 Baseline PHQ-9 05/08/2023 documented as of this encounter Care Teams Court Stenographer Relationship Specialty Start Date End Date Emerald Sanchez MD [address] [facility] 110 [place] [address] PCP - Medical [place] [employer] 10/22/18 04/23/99 Emerald Sanchez MD [address] [facility] 110 [place] [address] PCP - General Family Medicine 08/30/22 documented as of this encounter
--- OUTSIDE RECORDS SUMMARY | 2025-01-09 12:12 | XMS_ITS | Encounter Summary ---
Author Organization [facility] Address [address] [place] [address] Care Team Providers Care Carpenter Supervisor Name Role Phone Emerald Sanchez MD Unavailable Emerald Sanchez MD Primary Care Provider [phone] Encounter Details Date Type Department Care Team (Late st Contact Info) Description 02/14/2023 Abstract [facility] [place] [facility] [address] [facility] 110 [place] [address] Emerald Sanchez MD [address] [place] 110 [place] [address] Social History Tobacco Use Types Packs/Day Years [...] [facility] [address] [place] [address] 01/15/2025 4:00 PM EDT Clinical Support [facility] N[facility] POD 368 [place] [address] Milton Duvall, DPM FACFAS 368 [facility] [place] [address] 02/28/2025 9:00 AM EST Office Visit [facility] [place] [facility] [address] [facility] 310 [place] [address] Jatin Cabrera MD 5566 Jose Alejandro [address] [address] 03/18/2025 9:00 AM EST Office Visit [facility] [place] [facility] [address] [facility] 110 [place] [address] Emerald Sanchez MD [address] [facility] 110 [place] [address] documented as of this encounter Visit Diagnoses Not on filedocumented in this encounter Care Teams Carpenter Supervisor Relationship Specialty Start Date End Date Emerald Sanchez MD [address] [facility] 110 [place] [address] PCP - Medical [place] Commercial 10/22/18 04/23/99 Emerald Sanchez MD [address] [facility] 110 [place] [address] PCP - General Family Medicine 08/30/22 documented as of this encounter
--- OUTSIDE RECORDS SUMMARY | 2025-01-09 12:12 | XMS_ITS | Encounter Summary ---
Author Organization [facility] Address [address] [place] [address] Care Team Providers Care Fishing Instructor Name Role Phone Emerald Sanchez MD Primary Care Provider [phone] Deena Osorio CASE MANAGERS Unavailable [phone] Darwin Starr DO Unavailable [phone] Source Comments In the event this information is protected by the Federal Confidentiality of Alcohol and Drug AbusePatient Records regulations: The Federal rules restrict any use of the information to criminally investigate or prosecute any alcohol or drug abuse patient.[facility] Encounter Details Date Type Department Care Team (Late st Contact Info) Description 09/27/2024 Patient Msg [facility] [address] [place] [address] Provider, Ccf CPP CONSULT Social History Tobacco [...] is lower risk 4 10/17/2022 Data from: https://www.neighborhoodatlas.medicine.[facility].edu/. Last address used for calculation [address] [...] on filedocumented in this encounter Care Teams Fishing Instructor Relationship Specialty Start Date End Date Emerald Sanchez MD [address] [place] 110 [place] [address] PCP - General Family Medicine 03/27/19 Deena Osorio APRN [address] [place] 110 [place] [address] Referring Family Medicine 04/03/24 Darwin Starr DO [address] [place] [address] Dr Carlyle Mancuso, [place] [id number] Referring Scouring Train Operator Chief 07/02/24 documented as of this encounter
--- OUTSIDE RECORDS SUMMARY | 2025-01-09 12:12 | XMS_ITS | Encounter Summary ---
Author Organization [facility] Address [address] [place] [address] Care Team Providers Care Churn Drill Operator Name Role Phone Emerald Sanchze MD Unavailable Emerald Sanchez MD Primary Care Provider [phone] Encounter Details Date Type Department Care Team (Late st Contact Info) Description 06/13/2024 Abstract [facility] 368 [place] [address] Milton Duvall, DPM FACFAS [address] [facility] [place] [address] Social History Tobacco Use Types Packs/Day Years [...] How often do you attend shinto or buddhist serv ices? Never 05/09/2024 Do [...] and heating? Not hard at all 05/09/2024 [facility] Stress Questionnaire Answer Date [...] [facility] [place] [facility] [address] [place] [address] 01/15/2025 4:00 PM EDT Clinical Support [facility] 368 [facility] [place] [address] Milton Duvall, DPM FACFAS 368 [facility] [place] [address] 02/28/2025 9:00 AM EST Office Visit [facility] [place] [facility] [address] [facility] 310 [place] [address] Jatin Cabrera MD 8962 [facility] [address] [address] 03/18/2025 9:00 AM EST Office Visit [facility] [place] [facility] [address] [facility] 110 [place] [address] Emerald Sanchez MD [address] [facility] 110 [place] [address] documented as of this encounter Goals Goal [...] documented as of this encounter Care Teams Churn Drill Operator Relationship Specialty Start Date End Date Emerald Sanchez MD [address] [facility] 110 [place] [address] PCP - Medical [place] Commercial 10/22/18 04/23/99 Emerald Sanchez MD [address] [place] [facility] 110 [place] [address] PCP - General Family Medicine 08/30/22 documented as of this encounter
--- OUTSIDE RECORDS SUMMARY | 2025-01-09 12:12 | XMS_ITS | Encounter Summary ---
Author Organization [facility] Address [address] [place] [address] Care Team Providers Care Bird Raiser Name Role Phone Emerald Hagen MD Unavailable Emerald Hagen MD Primary Care Provider [phone] Encounter Details Date Type Department Care Team [...] Procedure [facility] [place] [facility] [address] [place] [address] 01/15/2025 4:00 PM EDT Clinical Support [facility] 368 [facility] [address] Milton Duvall, DPM FACFAS 368 [facility] [place] [address] 02/28/2025 9:00 AM EST Office Visit [facility] [place] [facility] [address] [place] [address] [place] [address] Jatin Cabrera MD [address] Sime[place] [address] [place] [address] 03/18/2025 9:00 AM EST Office Visit [facility] [place] [facility] [address] [facility] 110 [place] [address] Emerald Hagen MD [address] [facility] 110 [place], [place] [address] documented as of this encounter Procedures Procedure Name Priority Date/Time Associated Diagnosis Comments ECG 12-LEAD 02/06/2023 11:33 AM EDT documented in this encounter Results * ECG 12-LEAD (02/06/2023 11:33 AM EDT) Anatomical Region Laterality Modality Other 02/06/2023 11:3 3 AM EDT Narrative 02/06/2023 11:33 AM EDT [address] [address] Electrocardiograph Report Signed Patient: ORION BARNETT MR#: [id number] : 1990 Acct:[id number] Age/Sex: 32 / F ADM Date: Loc: SURGOUT Attending Dr: Darwin Starr D.O. Ordering Physician: Darwin Starr D.O. Date of Service: 02/06/23 Procedure(s): ECG 12 lead Accession Number(s): [id number] cc: [facility] Test Date: 2023-02-06 Pat Name: ORION BARNETT Department: Room: - Gender: Female Esthetics Instructor: : 1990 Requested By: EMERALD HAGEN Order Number: [id number] Kodi MD: KEI POWELL Measurements Intervals Banks Rate: 70 P: 78 [place]: 159 QRS: 72 QRSD: 88 T: 61 QT: 422 QTc: 458 Interpretive Statements SINUS RHYTHM WITH SINUS ARRHYTHMIA No previous ECG available for comparison Electronically Signed On 02-06-2023 20:04:15 EDT by KEI POWELL Dictated By: Kei Powell D.O. Signed By: 02/06/232003 DD/ 32 TD/TT: Contracts Attorney: Procedure Note Radiology, Radiologist, - 02/06/[address] [address] Electrocardiograph Report Signed Patient: ORION BARNETT AMR#: [id number] : 1990Acct:[id number] Age/Sex: 32 / FADM Date: Loc: SURGOUT Attending Dr: Darwin Starr D.O. Ordering Physician: Darwin Starr D.O. Date of Service: 02/06/23 Procedure(s): ECG 12 lead Accession Number(s): [id number] cc: [facility] Test Date: 2023-02-06 Pat Name: ORION BARNETT Department: Room: - Gender: Female Esthetics Instructor: : 1990 Requested By: EMERALD HAGEN Order Number: [id number] Reading MD: KEI POWELL Measurements Intervals Banks Rate: 70 P: 78 [place]: 159 QRS: 72 QRSD: 88 T: 61 QT: 422 QTc: 458 Interpretive Statements SINUS RHYTHM WITH SINUS ARRHYTHMIA No previous ECG available for comparison Electronically Signed On 02-06-2023 20:04:15 EDT by KEI POWELL Dictated By: Kei Powell D.O. Signed By:02/06/232003 DD/ 32 TD/TT: Contracts Attorney: us Generic External Data Provider [facility] Final Result documented in this encounter Visit Diagnoses Not on filedocumented in this encounter Care Teams Bird Raiser Relationship Specialty Start Date End Date Emerald Hagen MD [address] [place] [facility] 110 [place] [address] PCP - Medical [place] Commercial 10/22/18 04/23/99 Emerald Hagen MD [address] [address] PCP - General Family Medicine 08/30/22 documented as of this encounter
--- OUTSIDE RECORDS SUMMARY | 2025-01-09 12:12 | XMS_ITS | Encounter Summary ---
Author Organization [facility] Address [address] [place] [address] Care Team Providers Care Biomedical Engineering Professor Name Role Phone Emerald Sanchez MD Unavailable Emerald Sanchez MD Primary Care Provider [phone] Encounter Details Date Type Department Care Team (Late st Contact Info) Description 04/03/2023 Abstract [facility] [place] [facility] [address] [facility] 110 [place] [address] Emerald Sanchez MD [address] [place] 110 [place] [address] Social History Tobacco Use Types Packs/Day Years [...] Procedure [facility] [place] [facility] [address] [place] [address] 01/15/2025 4:00 PM EDT Clinical Support [facility] 368 [facility] [place] [address] Milton Duvall, DPM FACFAS 368 [facility] [place] [address] 02/28/2025 9:00 AM EST Office Visit [facility] [place] [facility] [address] [facility] 310 [place] [address] Jatin Carbera MD 0995 [facility] [address] [address] 03/18/2025 9:00 AM EST Office Visit [facility] [place] [facility] [address] [facility] 110 [place] [address] Emerald Sanchez MD 112 [address] [facility] 110 [place] [address] documented as of this encounter Visit Diagnoses Not on filedocumented in this encounter Care Teams Biomedical Engineering Professor Relationship Specialty Start Date End Date Emerald Sanchez MD 112 [address] [facility] 110 [place] [address] PCP - Medical [place] Commercial 10/22/18 04/23/99 Emerald Sanchez MD 112 [address] [facility] 110 [place] [address] PCP - General Family Medicine 08/30/22 documented as of this encounter
--- OUTSIDE RECORDS SUMMARY | 2025-01-09 12:12 | XMS_ITS | Encounter Summary ---
Author Organization [facility] Address [address] [place] [address] Care Team Providers Care Varitypist Name Role Phone Emerald Sanchez MD Unavailable Emerald Sanchez MD Primary Care Provider [phone] Encounter Details Date Type Department Care Team (Late st Contact Info) Description 12/12/2022 Orders Only [facility] [place] [facility] 112 [facility] 110 [place] [address] A, Unknown Practice [address] [place], [place] [address] Social History Tobacco Use Types Packs/Day Years [...] [facility] [address] [place] [address] 01/15/2025 4:00 PM EDT Clinical Support [facility]OD 368 [facility] [place] [address] Milton Duvall, DPM FACFAS 368 [facility] [place] [address] 02/28/2025 9:00 AM EST Office Visit [facility] [place] [facility] [address] [facility] 310 [place] [address] Jatin Cabrera MD [address] [place] [address] 03/18/2025 9:00 AM EST Office Visit [facility] [place] [facility] [address] [facility] 110 [place] [address] Emerald Sanchez MD 112 [place] [facility] 110 [place] [address] documented as of this encounter Procedures Procedure [...] on filedocumented in this encounter Care Teams Varitypist Relationship Specialty Start Date End Date Emerald Sanchez MD 112 [place] [facility] 110 [place] [address] PCP - Medical [place] Commercial 10/22/18 04/23/99 Emerald Sanchez MD 112 [place] [facility] 110 [place] [address] PCP - General Family Medicine 08/30/22 documented as of this encounter
--- OUTSIDE RECORDS SUMMARY | 2025-01-09 12:12 | XMS_ITS | Encounter Summary ---
Author Organization [facility] Address [address] [facility] [place] [address] Care Team Providers Care Podiatrist Assistant Name Role Phone Emerald Sanchez MD Unavailable Emerald Sanchez MD Primary Care Provider [phone] Encounter Details Date Type Department Care Team (Late st Contact Info) Description 01/29/2024 Abstract [facility] [place] [facility] [address] [facility] 110 [place] [address] Emerald Sanchez MD [address] [place] 110 [place] [address] Social History Tobacco Use Types Packs/Day Years [...] [facility] [address] [place] [address] 01/15/2025 4:00 PM EDT Clinical Support [facility]OD 368 [place] [address] Milton Duvall, DPM FACFAS 368 [place] [address] 02/28/2025 9:00 AM EST Office Visit [facility] [place] [facility] [address] [facility] 310 [place] [address] Jatin Cabrera MD 3835 [facility] [address] [address] 03/18/2025 9:00 AM EST Office Visit [facility] 112 [facility] 110 [place] [address] Emerald Sanchez MD [address] [facility] 110 [place] [address] documented as of this encounter Goals Goal [...] documented as of this encounter Care Teams Podiatrist Assistant Relationship Specialty Start Date End Date Emerald Sanchez MD [address] [facility] 110 [place] [address] PCP - Medical [place] Commercial 10/22/18 04/23/99 Emerald Sanchez MD [address] [place] 110 [place] [address] PCP - General Family Medicine 08/30/22 documented as of this encounter
--- OUTSIDE RECORDS SUMMARY | 2025-01-09 12:12 | XMS_ITS | Encounter Summary ---
Author Organization [facility] Address [address] [facility] [place] [address] Care Team Providers Care Capacitor Tester Name Role Phone Emerald Sanchez MD Unavailable Emerald Sanchez MD Primary Care Provider Encounter Details Date Type Department Care Team (Late st Contact Info) Description 01/30/2024 Abstract [facility] [place] [facility] [address] [facility] 110 [place] [address] Emerald Sanchez MD [address] [place] 110 [place] [address] Social History Tobacco Use Types Packs/Day Years [...] often do you attend chur ch or christian services? Never 04/18/2023 Do you belong to [...] Imaging [address] [place] [address] 01/15/2025 4:00 PM EDT Clinical Support [facility] N[facility] POD 368 [place] [address] Milton Duvall, DPM FACFAS 368 [place] [address] 02/28/2025 9:00 AM EST Office Visit [facility] [place] [facility] [address] [facility] 310 [place] [address] Jatin Cabrera MD 2198 [facility] [address] [id number] 03/18/2025 9:00 AM EST Office Visit [facility] 112 [facility] 110 [place] [address] Emerald Sanchez MD [address] [facility] 110 [place] [address] documented as of this encounter Goals Goal [...] documented as of this encounter Care Teams Capacitor Tester Relationship Specialty Start Date End Date Emerald Sanchez MD [address] [facility] 110 [place] [address] PCP - Medical [place] Commercial 10/22/18 04/23/99 Emerald Sanchez MD [address] [place] 110 [place] [address] PCP - General Family Medicine 08/30/22 documented as of this encounter
--- OUTSIDE RECORDS SUMMARY | 2025-01-09 12:13 | XMS_ITS | Encounter Summary ---
Author Organization [facility] Address [address] [facility] [place] [address] Care Team Providers Care Mutual Fund Manager Name Role Phone Emerald Sanchez MD Unavailable Emerald Sanchez MD Primary Care Provider [phone] Encounter Details Date Type Department Care Team (Late st Contact Info) Description 12/13/2024 Abstract [facility] [place] [facility] [address] [facility] 110 [place] [address] Emerald Sanchez MD [address] [place] 110 [place] [address] Social History Tobacco Use Types Packs/Day Years [...] How often do you attend yazidism or sabianist serv ices? Never 05/09/2024 Do [...] Recorded Patient Health Questionnaire-2 Score 4 10/08/2024 [facility] - [...] in a prison (including now)? No 04/18/2023 Housing Stability Vital Sign Answer Celso e Recorded In the last 12 months, was t here a time when you were not able to pay the mortgage or rent on time? No 05/09/2024 In the past 12 months, how m any times have you moved where you were living? 0 05/09/2024 At any time in the past 12 m [facility], were you homeless or living in a prison (including now)? No 05/09/2024 Comments No Sex [...] [facility] [address] [place] [address] 01/15/2025 4:00 PM EDT Clinical Support [facility] 368 [facility] [place] [address] Milton Duvall, DPM FACFAS 368 [facility] [place] [address] 02/28/2025 9:00 AM EST Office Visit [facility] [place] [facility] [address] [facility] 310 [place] [address] Jatin Cabrera MD 7462 [facility] [address] [address] 03/18/2025 9:00 AM EST Office Visit [facility] [place] [facility] [address] [facility] 110 [place] [address] Emerald Sanchez MD 112 [place] [facility] 110 [place] [address] documented as of this encounter Goals Goal [...] documented as of this encounter Care Teams Mutual Fund Manager Relationship Specialty Start Date End Date Emerald Sanchez MD 112 [place] [facility] 110 [place] [address] PCP - Medical [place] Commercial 10/22/18 04/23/99 Emerald Sanchez MD 112 [place] [facility] 110 [place] [address] PCP - General Family Medicine 08/30/22 documented as of this encounter
--- OUTSIDE RECORDS SUMMARY | 2025-01-09 12:13 | XMS_ITS | Encounter Summary ---
Author Organization [facility] Address [address] [facility] [place] [address] Care Team Providers Care Supervisor Phosphatic Fertilizer Name Role Phone Emerald Sanchez MD Unavailable Emerald Sanchez MD Primary Care Provider Encounter Details Date Type Department Care Team (Late st Contact Info) Description 12/06/2023 Abstract [facility] [place] [facility] [address] [facility] 110 [place] [address] Emerald Sanchez MD [address] [place] 110 [place] [address] Social History Tobacco Use Types Packs/Day Years [...] often do you attend chur ch or mormon services? Never 04/18/2023 Do you belong to any clubs o r organizations such as judaism groups, unions, fraternal or athletic groups, or [...] [facility] [address] [place] [address] 01/15/2025 4:00 PM EDT Clinical Support [facility] N[facility] POD 368 [place] [address] Milton Duvall, DPM FACFAS 368 [place] [address] 02/28/2025 9:00 AM EST Office Visit [facility] [place] [facility] [address] [facility] 310 [place] [address] Jatin Cabrera MD [address] [facility] [address] [id number] 03/18/2025 9:00 AM EST Office Visit [facility] [address] [facility] [facility] 110 [place] [address] Emerald Sanchez MD [address] [facility] 110 [place] [address] documented as of this encounter Goals Goal [...] as of this encounter Care Teams Supervisor Phosphatic Fertilizer Relationship Specialty Start Date End Date Emerald Sanchez MD 112 [place] [facility] 110 [place] [address] PCP - Medical [place] Commercial 10/22/18 04/23/99 Emerald Sanchez MD [address] [place] 110 [place] [address] PCP - General Family Medicine 08/30/22 documented as of this encounter
--- OUTSIDE RECORDS SUMMARY | 2025-01-09 12:13 | XMS_ITS | Encounter Summary ---
Author Organization [facility] Address [address] [place] [address] Care Team Providers Care Senior Network Architect Name Role Phone Emerald Hagen MD Unavailable Emerald Hagen MD Primary Care Provider [phone] Encounter Details Date Type Department Care Team (Late st Contact Info) Description 01/17/2024 Clinisync Result Encounter NOMS External Department Unsolicited Emerald Hagen MD [address] [facility] 110 [place] [address] Social History Tobacco Use Types Packs/Day Years [...] any clubs o r organizations such as oriental orthodox groups, unions, fraternal or athletic groups, [...] [address] [place] [address] 01/15/2025 4:00 PM EDT Clinical Support [facility] N[facility] POD [address] [place] [address] Milton Duvall, DPM FACFAS [address] [place] [address] 02/28/2025 9:00 AM EST Office Visit [facility] [address] [facility] [address] [place] [address] Jatin Cabrera MD 0081 [facility] [address] [id number] 03/18/2025 9:00 AM EST [facility] [address] [facility] 110 [place] [address] Emerald Hagen MD [address] [facility] 110 [place] [employer], [place] [address] (work) documented as of this encounter Goals [...] AM EDT Narrative 01/17/2024 6:[address] [place] [address] XRay Report Signed Patient: ORION BARNETT MR#: [id number] : 1990 Acct:[id number] Age/Sex: 33 / F ADM Date: 01/12/24 Loc: RAD Attending Dr: EMERALD HAGEN Ordering Physician: EMERALD HAGEN Date of Service: 01/12/24 Procedure(s): XR cervical spine 2-3V Accession Number(s): [id number] cc: EMERALD HAGEN [address] [address] Patient Name: ORION BARNETT MRN: [id number] date: 1990 Sex: F Assigned Patient Location: RAD Current Patient Location: ED.MAIN Accession/Order Number: [id number] Exam Date: 01/12/2024 16:55 Report Date: 01/17/2024 06:21 At the request of: EMERALD HAGEN Procedure: XR cervical spine 2-3V EXAMINATION: XR cervical spine 2-3V HISTORY: cervical zlevhvdyrlzedO03.12 , neck pain, numbness in shoulders and [...] Dictated By: Keegan Bruno M.D. Signed By: 01/17/24622 DD/ 0 TD/TT: Computer Systems Designer: Procedure Note Radiology, Radiologist, MD - 01/17/2024 [place] [address] XRay Report Signed Patient: ORION BARNETT AMR#: [id number] : 1990Acct:[id number] Age/Sex: 33 / FADM Date: 01/12/24 Loc: RAD Attending Dr: EMERALD HAGEN Ordering Physician: EMERALD HAGEN Date of Service: 01/12/24 Procedure(s): XR cervical spine 2-3V Accession Number(s): [id number] cc: EMERALD HAGEN [address] [address] Patient Name: ORION BARNETT MRN: [id number] date: 1990 Sex: F Assigned Patient Location: [facility] Current Patient Location: ED.MAIN Accession/Order Number: [id number] Exam Date: 01/12/2024 16:55 Report Date: 01/17/2024 06:21 At the request of: EMERALD HAGEN Procedure: XR cervical spine 2-3V EXAMINATION: XR cervical spine 2-3V HISTORY: cervical otmmavsapjtgwX37.12 , neck pain, numbness in shouldersand fingers [...] Bruno M.D. Signed By:01/17/24622 DD/ 0 TD/TT: Computer Systems Designer: Emerald Hagen MD [facility] Final Result documented in this encounter Visit Diagnoses Not on filedocumented in this encounter Additional Health Concerns Active Problems Noted Date Diagnosed Date Patient on antidepressant monitoring plan 2023 Baseline PHQ-9 05/08/2023 documented as of this encounter Care Teams Senior Network Architect Relationship Specialty Start Date End Date Emerald Hagen MD [address] [place] [address] [place] [address] PCP - Medical [place] [employer] 10/22/18 04/23/99 Emerald Hagen MD [address] [place] [address] [place] [address] PCP - General Family Medicine 08/30/22 documented as of this encounter
--- OUTSIDE RECORDS SUMMARY | 2025-01-09 12:13 | XMS_ITS | Encounter Summary ---
Author Organization [facility] Address [address] [facility] [place] [address] Care Team Providers Care Construction Economist Name Role Phone Emerald Sanchez MD Unavailable Emerald Sanchez MD Primary Care Provider [phone] Encounter Details Date Type Department Care Team (Late st Contact Info) Description 12/12/2024 Abstract [facility] [address] [facility] 110 [place] [address] Emerald Sanchez MD [address] [place] 110 [place] [address] Social History Tobacco Use Types Packs/Day Years [...] How often do you attend quaker or amish serv ices? Never 05/09/2024 Do [...] Questionnaire-2 Score 4 10/08/2024 [facility] Occupat ional [facility] - Occupational [...] time in the past 12 m [facility], were you homeless or living [...] [facility] [address] [place] [address] 01/15/2025 4:00 PM EDT Clinical Support [facility] POD [address] [facility] [place] [address] Milton Duvall, DPM FACFAS 368 [facility] [place] [address] 02/28/2025 9:00 AM EST Office Visit [facility] [place] [facility] [address] [facility] 310 [place] [address] Jatin Cabrera MD 9314 [facility] [address] [address] 03/18/2025 9:00 AM EST Office Visit [facility] [address] [facility] 110 [place] [address] Emerald Sanchez MD [address] [facility] 110 [place] [address] documented as of this encounter Goals Goal [...] as of this encounter Care Teams Construction Economist Relationship Specialty Start Date End Date Emerald Sanchez MD [address] [facility] 110 [place] [address] PCP - Medical [place] [employer] 10/22/18 04/23/99 Emerald Sanchez MD [address] [facility] 110 [place] [address] PCP - General Family Medicine 08/30/22 documented as of this encounter
--- OUTSIDE RECORDS SUMMARY | 2025-01-09 12:13 | XMS_ITS | Encounter Summary ---
Author Organization [facility] Address [address] [facility] [place] [address] Care Team Providers Care Loan Representative Name Role Phone Emerald Hagen MD Unavailable Emerald Hagen MD Primary Care Provider [phone] Encounter Details Date Type Department Care Team [...] week 04/18/2023 How often do you attend [facility] or confucianism services? Never 04/18/2023 Do you [...] Ancillary Procedure [facility] [place] [facility] [address] [facility] [place] [address] 01/15/2025 4:00 PM EDT Clinical Support [facility] POD [address] [place] [address] Milton Duvall, DPM FACFAS [address] [place] [address] 02/28/2025 9:00 AM EST Office Visit [facility] [address] [facility] 310 [place] [address] Jatin Cabrera MD 2688 [facility] [address] [address] 03/18/2025 9:00 AM EST Office Visit [facility] [place] [facility] [address] [facility] 110 [place] [address] Emerald Hagen MD [address] [facility] 110 [place], [place] [address] documented as of this encounter Goals Goal [...] AM EDT Narrative 11/20/2023 8:00 [place] [address] XRay Report Signed Patient: BELGICA BARNETT MR#: [id number] : 1990 Acct:[id number] Age/Sex: 33 / F ADM Date: 11/16/23 Loc: RAD Attending Dr: Madhuri Ortiz M.D. Ordering Physician: Madhuri Ortiz M.D. Date of Service: 11/16/23 Procedure(s): XR abdomen 1V Accession Number(s): [id number] cc: EMERALD HAGEN ; Madhuri Ortiz M.D. [address] [address] Patient Name: BELGICA BARNETT MRN: [id number] date: 1990 Sex: F Assigned Patient Location: RAD Current Patient Location: Accession/Order Number: [id number] Exam Date: 11/16/2023 16:15 Report Date: 11/20/2023 07:57 At the request of: MADHURI ORTIZ Procedure: XR abdomen 1V EXAMINATION: XR abdomen [...] Laurie Bruno M.D. Signed By: 11/20/23799 DD/ 075 TD/TT: Cryptographer: Procedure Note Radiology, Radiologist, - 11/20/2023 [place] [address] XRay Report Signed Patient: BELGICA BARNETT AMR#: [id number] : 1990Acct:[id number] Age/Sex: 33 / FADM Date: 11/16/23 Loc: RAD Attending Dr: Madhuri Ortiz M.D. Ordering Physician: Madhuri Ortiz M.D. Date of Service: 11/16/23 Procedure(s): XR abdomen 1V Accession Number(s): [id number] cc: EMERALD HAGEN ; Madhuri Ortiz M.D. The [place] [address] Patient Name: BELGICA BARNETT MRN: [id number] date: 1990 Sex: F Assigned Patient Location: [facility] Current Patient Location: Accession/Order Number: [id number] Exam Date: 11/16/2023 16:15 Report Date: 11/20/2023 07:57 At the request of: MADHURI ORTIZ Procedure: XR abdomen 1V EXAMINATION: XR abdomen [...] By: Laurie Bruno M.D. Signed By:11/20/23799 DD/ 0757 TD/TT: Cryptographer: us Generic External Data Provider [facility] Final Result documented in this encounter Visit Diagnoses Not on filedocumented in this encounter Additional Health Concerns Active Problems Noted Date Diagnosed Date Patient on antidepressant monitoring plan 2023 Baseline PHQ-9 05/08/2023 documented as of this encounter Care Teams Loan Representative Relationship Specialty Start Date End Date Emerald Hagne MD 112 [facility] 110 [place] [address] PCP - Medical [place] [employer] 10/22/18 04/23/99 Emerald Hagen MD 112 [facility] 110 [place] [address] PCP - General Family Medicine 08/30/22 documented as of this encounter
--- OUTSIDE RECORDS SUMMARY | 2025-01-09 12:13 | XMS_ITS | Encounter Summary ---
Author Organization [facility] Address [address] [place] [address] Care Team Providers Care Glove Maker Name Role Phone Emerald Sanchez MD Unavailable Emerald Sanchez MD Primary Care Provider [phone] Encounter Details Date Type Department Care Team (Late st Contact Info) Description 05/23/2024 Abstract [facility] [address] [facility] [place] [address] Darwin Starr DO 102 [facility] [address] Carlyle Mancuso, [facility] Social History Tobacco Use Types Packs/Day [...] week 05/09/2024 How often do you attend caodaism or scientology serv ices? Never 05/09/2024 Do [...] all 05/09/2024 [facility] of Occupat ional Health - Occupational [...] [facility] [address] [place] [address] 01/15/2025 4:00 PM EDT Clinical Support [facility] POD 368 [facility] [place] [place] [address] Milton Duvall, DPM FACFAS 368 [facility] [place] [address] 02/28/2025 9:00 AM EST Office Visit [facility] [place] [facility] [address] [place] [address] [place] [address] Jatin Cabrera MD 5167 [facility] [address] [address] 03/18/2025 9:00 AM EST Office Visit [facility] [place] [facility] [address] [facility] 110 [place] [address] Emerald Sanchez MD [address] [place] 110 [place] [address] documented as of this encounter Goals Goal [...] documented as of this encounter Care Teams Glove Maker Relationship Specialty Start Date End Date Emerald Sanchez MD [address] [facility] 110 [place] [address] PCP - Medical [place] [employer] 10/22/18 04/23/99 Emerald Sanchez MD [address] [facility] 110 [place] [address] PCP - General Family Medicine 08/30/22 documented as of this encounter
--- OUTSIDE RECORDS SUMMARY | 2025-01-09 12:13 | XMS_ITS | Encounter Summary ---
Author Organization [facility] Address [address] [place] [address] Care Team Providers Care Handle Machine Operator Name Role Phone Emerald Sanchez MD Primary Care Provider [phone] Deena Osorio AEROBICS TEACHER Unavailable [phone] Darwin Starr DO Unavailable [phone] Source Comments In the event this information is protected by the Federal Confidentiality of Alcohol and Drug AbusePatient Records regulations: The Federal rules restrict any use of the information to criminally investigate or prosecute any alcohol or drug abuse patient.[facility] Reason for Referral * Diagnostic Procedure Only (Routine) - Closed Specialty Diagnoses / Procedures Referred By Contac t Referred To Contact XR IMAGING Diagnoses Chronic idiopathic constipation Procedures XR ABDOMEN 2V ROUTINE SUPINE W UPRIGHT/DECUB/CTL RADIOLOGIC EXAM ABDOMEN 2 VIEWS Iliana Hendrickson PA-C [address] [place] [address] Phone: tel: fax: [place] [address] Referral ID Status Reason Start Date Expiration Date V isits Requested Visits Authorized [id number] Closed Auto-Generate d Referral 07/09/2024 08/07/2025 1 1 Encounter Details Date Type Department Care Team (Late st Contact Info) Description 07/05/2024 Get Medical Advice Gastroenterology [address] [place] [address] [place] [address] [place] [address] Office visit Social History Tobacco Use Types [...] is lower risk 4 10/17/2022 Data from: https://www.neighborhoodatlas.[facility]/. Last address used for calculation [address] [...] IMPRESSION: Mild to moderate colonic stool content Community Reinvestment Act Officer: MINAL Transcribe Date/Time: Jul 13 2024 9:59A [...] osseous process is evident. Procedure Note Provider, [facility] - 03/22/2025 * * *Final Report* * * DATE [...] IMPRESSION: Mild to moderate colonic stool content Community Reinvestment Act Officer: MINAL Transcribe Date/Time: Jul 13 2024 9:59A Dictated by : BUNNY LIANG MD This examination was interpreted and the report reviewed and electronically signed by: BUNNY LIANG MD on Jul 13 2024 10:05AM EST us Iliana Hendrickson PA-C RAD-PAMA Final Resu lt documented in this encounter Visit Diagnoses Diagnosis Chronic idiopathic constipation- Primary Unspecified constipation Chronic idiopathic constipation Unspecified constipation documented in this encounter Care Teams Handle Machine Operator Relationship Specialty Start Date End Date Emerald Sanchez MD 112 [facility] 110 [place] [address] PCP - General Family Medicine 03/27/19 Deena Osorio APRN [address] [place] 110 [place] [address] Referring Family Medicine 04/03/24 Darwin Starr DO [address] [place] [address] [place] [address] Referring Tobacco Sample Puller 07/02/24 documented as of this encounter
--- OUTSIDE RECORDS SUMMARY | 2025-01-09 12:13 | XMS_ITS | Encounter Summary ---
Author Organization [facility] Address [address] [place] [address] Care Team Providers Care 3D Animator Name Role Phone Emerald Sanchez MD Primary Care Provider [phone] Deena Osorio DIRECTOR DIGITAL STRATEGY Unavailable [phone] Darwin Starr DO Unavailable [phone] Source Comments In the event this information is protected by the Federal Confidentiality of Alcohol and Drug AbusePatient Records regulations: The Federal rules restrict any use of the information to criminally investigate or prosecute any alcohol or drug abuse patient.[facility] Encounter Details Date Type Department Care Team (Late st Contact Info) Description 07/08/2024 Patient Msg Gastroenterology [address] [place] [address] Provider, Ccf Social History Tobacco Use Types [...] is lower risk 4 10/17/2022 Data from: https://www.neighborhoodatlas.[facility].edu/. Last address used for calculation [address] [...] on filedocumented in this encounter Care Teams 3D Animator Relationship Specialty Start Date End Date Emerald Sanchez MD [address] [facility] 110 [place] [address] PCP - General Family Medicine 03/27/19 Deena Osorio APRN [address] [facility] 110 [place] [address] Referring Family Medicine 04/03/24 Darwin Starr DO 102 [facility] [place] [address] Referring Web Production Designer 07/02/24 documented as of this encounter
--- OUTSIDE RECORDS SUMMARY | 2025-01-09 12:13 | XMS_ITS | Encounter Summary ---
Author Organization [facility] Address [address] [place] [address] Care Team Providers Care Bottom Wheeler Name Role Phone Emerald Sanchez MD Primary Care Provider [phone] Deena Osorio APRN Unavailable [phone] Darwin Starr DO Unavailable [phone] Source Comments In the event this information is protected by the Federal Confidentiality of Alcohol and Drug AbusePatient Records regulations: The Federal rules restrict any use of the information to criminally investigate or prosecute any alcohol or drug abuse patient.[facility] Encounter Details Date Type Department Care Team (Late st Contact Info) Description 04/19/2024 Patient Msg Cardiology [address] [place], [place] [address] Provider, Ccf Social History Tobacco Use Types [...] is lower risk 4 10/17/2022 Data from: https://www.neighborhoodatlas.[facility]/. Last address used for calculation [...] documented as of this encounter Care Teams Bottom Wheeler Relationship Specialty Start Date End Date Emerald Sanchez MD [address] [facility] 110 [place] [address] PCP - General Family Medicine 03/27/19 Deena Osorio APRN [address] [facility] 110 [place] [address] Referring Family Medicine 04/03/24 Darwin Starr DO [address] [place], [place] [address]Kayla [place] [address] Referring Sweet Potato Disintegrator 07/02/24 documented as of this encounter
--- OUTSIDE RECORDS SUMMARY | 2025-01-09 12:13 | XMS_ITS | Encounter Summary ---
Author Organization [facility] Address [address] [facility] [place] [address] Care Team Providers Care Ordnance Corps Officer Name Role Phone Emerald Sanchez MD Unavailable Emerald Sanchez MD Primary Care Provider [phone] Encounter Details Date Type Department Care Team (Late st Contact Info) Description 05/09/2024 Abstract [facility] [place] [facility] [address] [facility] 110 [place] [address] Emerald Sanchez MD [address] [place] [address] [place] [address] Social History Tobacco Use Types Packs/Day Years [...] How often do you attend christian or yazidism serv ices? Never 05/09/2024 Do you belong [...] heating? Not hard at all 05/09/2024 [facility] - [facility] Stress [...] time in the past 12 m [facility], were you homeless or living [...] 01/14/2025 6:00 PM EDT Ancillary Procedure [facility] [place] [facility] [address] [place] [address] 01/15/2025 4:00 PM EDT Clinical Support [facility] N[facility] POD [address] [place] [address] Milton Duvall, DPM FACFAS 368 [facility] [place] [address] 02/28/2025 9:00 AM EST Office Visit [facility] [address] [facility] 310 [place] [address] Jatin Cabrera MD 89[address] [facility] [address] [address] 03/18/2025 9:00 AM EST Office Visit [facility] [place] [facility] [address] [facility] 110 [place] [address] Emerald Sanchez MD [address] [facility] 110 [place] [address] documented as of this encounter Goals Goal [...] as of this encounter Care Teams Ordnance Corps Officer Relationship Specialty Start Date End Date Emerald Sanchez MD [address] [facility] 110 [place] [address] PCP - Medical [place] [employer] 10/22/18 04/23/99 Emerald Sanchez MD [address] [place] [phone] PCP - General Family Medicine 08/30/22 documented as of this encounter
--- OUTSIDE RECORDS SUMMARY | 2025-01-09 12:13 | XMS_ITS | Encounter Summary ---
Author Organization [facility] Address [address] [place] [address] Care Team Providers Care Automatic Centrifugal Station Operator Name Role Phone Emerald Sanchez MD Primary Care Provider [phone] Deena Osorio MACHINIST MATE Unavailable [phone] Darwin Starr DO Unavailable [phone] Source Comments In the event this information is protected by the Federal Confidentiality of Alcohol and Drug AbusePatient Records regulations: The Federal rules restrict any use of the information to criminally investigate or prosecute any alcohol or drug abuse patient.[facility] Encounter Details Date Type Department Care Team (Late st Contact Info) Description 05/15/2024 Patient Msg Gastroenterology [address] [place] [id number] Provider, Ccf colon prep Social History Tobacco [...] is lower risk 4 10/17/2022 Data from: https://www.neighborhoodatlas.medicine.[facility].edu/. Last address used for calculation [address] [...] documented as of this encounter Care Teams Automatic Centrifugal Station Operator Relationship Specialty Start Date End Date Emerald Sanchez MD [address] [facility] 110 [place] [address] PCP - General Family Medicine 03/27/19 Deena Osorio APRN [address] [facility] 110 [place] [address] Referring Family Medicine 04/03/24 Darwin Starr DO [address] [place] [address] Dr [place], [place] [address] Referring Desk Officer 07/02/24 documented as of this encounter
--- OUTSIDE RECORDS SUMMARY | 2025-01-09 12:13 | XMS_ITS | Encounter Summary ---
Author Organization [facility] Address [address] [place] [address] Care Team Providers Care Brass Bobbin Winder Name Role Phone Emerald Sanchez MD Unavailable Emerald Sanchez MD Primary Care Provider [phone] Encounter Details Date Type Department Care Team (Late st Contact Info) Description 05/15/2024 Abstract [facility] [place] [facility] [address] [facility] 110 [place] [address] Emerald Sanchez MD [address] [place] [address] [place] [address] Social History Tobacco Use Types Packs/Day Years [...] week 05/09/2024 How often do you attend taoist or mormon serv ices? Never 05/09/2024 Do you belong to any clubs o r organizations such as taoist groups, unions, fraternal or athletic groups, or [...] and heating? Not hard at all 05/09/2024 [facility] - Occupational Stress Questionnaire Answer [...] [facility] [address] [place] [address] 01/15/2025 4:00 PM EDT Clinical Support [facility] [address] [facility] [place] [address] Milton Duvall, DPM FACFAS 368 [facility] [place] [address] 02/28/2025 9:00 AM EST Office Visit [facility] [place] [facility] [address] [facility] 310 [place] [address] Jatin Cabrera MD 0[address] [facility] [address] [address] 03/18/2025 9:00 AM EST Office Visit [facility] [address] [facility] 110 [place] [address] Emerald Sanchez MD [address] [facility] 110 [place] [address] documented as of this encounter Goals Goal [...] documented as of this encounter Care Teams Brass Bobbin Winder Relationship Specialty Start Date End Date Emerald Sanchez MD [address] [facility] 110 [place] [address] PCP - Medical [place] Commercial 10/22/18 04/23/99 Emerald Sanchez MD [address] [facility] 110 [place] [address] PCP - General Family Medicine 08/30/22 documented as of this encounter
--- OUTSIDE RECORDS SUMMARY | 2025-01-09 12:13 | XMS_ITS | Encounter Summary ---
Author Organization [facility] Address [address] [facility] [place] [address] Care Team Providers Care Food And Drug Inspector Name Role Phone Emerald Sanchez MD Unavailable Emerald Sanchez MD Primary Care Provider [phone] Encounter Details Date Type Department Care Team (Late st Contact Info) Description 01/10/2024 Abstract [facility] [place] [facility] [address] [facility] 110 [place] [address] Emerald Sanchez MD [address] [place] 110 [place] [address] Social History Tobacco Use Types Packs/Day Years [...] and heating? Not hard at all 04/18/2023 [facility]at ional [facility] - Occupational [...] [facility] [address] [place] [place] [address] 01/15/2025 4:00 PM EDT Clinical Support [facility] NMA POD 368 [place] [address] Milton Duvall, DPM FACFAS 368 [place] [address] 02/28/2025 9:00 AM EST Office Visit [facility] [place] [facility] [address] [facility] 310 [place] [address] Jatin Cabrera MD 4919 [facility] [address] [id number] 03/18/2025 9:00 AM EST Office Visit [facility] 112 [facility] 110 [place] [address] Emerald Sanchez MD [address] [facility] 110 [place] [address] documented as of this encounter Goals Goal [...] of this encounter Care Teams Food And Drug Inspector Relationship Specialty Start Date End Date Emerald Sanchez MD [address] [facility] 110 [place] [address] PCP - Medical [place] Commercial 10/22/18 04/23/99 Emerald Sanchez MD [address] [place] 110 [place] [address] PCP - General Family Medicine 08/30/22 documented as of this encounter
--- OUTSIDE RECORDS SUMMARY | 2025-01-09 12:13 | XMS_ITS | Encounter Summary ---
Author Organization [facility] Address [address] [facility] [place] [address] Care Team Providers Care Digital Product Manager Name Role Phone Emerald Sanchez MD Unavailable Emerald Sanchez MD Primary Care Provider [phone] Encounter Details Date Type Department Care Team (Late st Contact Info) Description 01/02/2024 Abstract [facility] [place] [facility] [address] [facility] 110 [place] [address] Emerald Sanchez MD [address] [place] 110 [place] [address] Social History Tobacco Use Types Packs/Day Years [...] [facility] [address] [place] [place] [address] 01/15/2025 4:00 PM EDT Clinical Support [facility] N[facility] POD 368 [place] [address] Milton Duvall, DPM FACFAS 368 [place] [address] 02/28/2025 9:00 AM EST Office Visit [facility] [place] [facility] [address] [facility] 310 [place] [address] Jatin Cabrera MD 4939 [facility] [address] [id number] 03/18/2025 9:00 AM EST Office [facility] [address] [facility] 110 [place] [address] Emerald Sanchez MD [address] [facility] 110 [place] [address] documented as of this encounter Goals Goal [...] documented as of this encounter Care Teams Digital Product Manager Relationship Specialty Start Date End Date Emerald Sanchez MD [address] [facility] 110 [place] [address] PCP - Medical [place] Commercial 10/22/18 04/23/99 Emerald Sanchez MD [address] [place] 110 [place] [address] PCP - General Family Medicine 08/30/22 documented as of this encounter
--- OUTSIDE RECORDS SUMMARY | 2025-01-09 12:13 | XMS_ITS | Encounter Summary ---
Author Organization [facility] Address [address] [place] [address] Care Team Providers Care Admin Asst Name Role Phone Emerald Sanchez MD Primary Care Provider [phone] Deena Osorio APRN Unavailable [phone] Darwin Starr DO Unavailable [phone] Source Comments In the event this information is protected by the Federal Confidentiality of Alcohol and Drug AbusePatient Records regulations: The Federal rules restrict any use of the information to criminally investigate or prosecute any alcohol or drug abuse patient.[facility] Encounter Details Date Type Department Care Team (Late st Contact Info) Description 10/18/2022 Patient Msg PAS MAIN 9500 [facility] [address] Provider, Ccf Financial Clearance Status Social History [...] risk 4 10/17/2022 Data from: https://www.neighborhoodatlas.medicine.[facility].edu/. Last address used for calculation [address] [...] documented as of this encounter Care Teams Admin Asst Relationship Specialty Start Date End Date Emerald Sanchez MD 112 [facility] 110 [place], [place] [address] PCP - General Family Medicine 03/27/19 Deena Osorio APRN 112 [facility] 110 [place] [address] Referring Family Medicine 04/03/24 Darwin Starr DO 102 [place] [address] Referring It Security Consulting Director 07/02/24 documented as of this encounter
--- OUTSIDE RECORDS SUMMARY | 2025-01-09 12:13 | XMS_ITS | Encounter Summary ---
Author Organization [facility] Address [address] [facility] [place] [address] Care Team Providers Care Weather Clerk Name Role Phone Emerald Sanchez MD Unavailable Emerald Sanchez MD Primary Care Provider [phone] Encounter Details Date Type Department Care Team [...] Ancillary Procedure [facility] [address] [place] [address] 01/15/2025 4:00 PM EDT Clinical Support [facility] N[facility] POD 368 [place] [address] Milton Duvall, DPM FACFAS 368 [facility] [place] [address] 02/28/2025 9:00 AM EST Office Visit [facility] [address] [facility] [place] [address] Jatin Cabrera MD 2322 [facility] [address] [id number] 03/18/2025 9:00 AM EST Office Visit [facility] [place] 112 [facility] 110 [place] [address] Emerald Sanchez MD 112 [facility] 110 [place] [address] documented as of this encounter Procedures Procedure Name Priority Date/Time Associated Diagnosis Comments NM GASTRIC EMPTYING SOLID 09/12/2022 2:44 PM EDT documented in this encounter Results * NM GASTRIC EMPTYING SOLID (09/12/2022 2:44 PM EDT) Anatomical Region Laterality Modality Other 09/12/2022 2:44 PM EDT Narrative 09/12/2022 3:07 PM EDT * * *Final Report* * * DATE OF EXAM: Sep 12 2022 2:44PM [facility] 0017 - [place] GASTRIC EMPTYING [...] 4 HOURS IS CONSISTENT WITH SEVERE GASTROPARESIS. Oil And Gas Superintendent: MINAL Transcribe Date/Time: Sep 12 2022 3:02P Dictated by : LUZ MARINA VÁZQUEZ MD This examination was interpreted and the report reviewed and electronically signed by: LUZ MARINA VÁZQUEZ MD on Sep 12 2022 3:05PM EST [id number]^ACN * * *Final Report* * * DATE OF EXAM: Sep 12 2022 2:44PM [facility] 0017 - [place] GASTRIC EMPTYING SOLID / PROCEDURE REASON: Nausea [...] 4 HOURS IS CONSISTENT WITH SEVERE GASTROPARESIS. Oil And Gas Superintendent: MINAL Transcribe Date/Time: Sep 12 2022 3:02P Dictated by : LUZ MARINA VÁZQUEZ MD This examination was interpreted and the report reviewed and electronically signed by: LUZ MARINA VÁZQUEZ MD on Sep 12 2022 3:05PM EST [id number]^SI^ACN * * *Final Report* * * DATE OF EXAM: Sep 12 2022 2:44PM [facility] 0017 - [place] GASTRIC EMPTYING [...] 4 HOURS IS CONSISTENT WITH SEVERE GASTROPARESIS. Oil And Gas Superintendent: PSCB Transcribe Date/Time: Sep 12 2022 3:02P Dictated by : LUZ MARINA VÁZQUEZ MD This examination was interpreted and the report reviewed and electronically signed by: LUZ MARINA VÁZQUEZ MD on Sep 12 2022 3:05PM EST [id number]^SI^ACN Procedure Note Radiology, Radiologist, - 09/26/2022 * * *Final Report* * * DATE OF EXAM: Sep 12 2022 2:44PM [facility] 0017 - [place] GASTRIC EMPTYING [...] 4 HOURS IS CONSISTENT WITH SEVERE GASTROPARESIS. Oil And Gas Superintendent: MINAL Transcribe Date/Time: Sep 12 2022 3:02P Dictated by : LUZ MARINA VÁZQUEZ MD This examination was interpreted and the report reviewed and electronically signed by: LUZ MARINA VÁZQUEZ MD on Sep 12 2022 3:05PM EST [id number]^SI^ACN * * *Final Report* * * DATE [...] 4 HOURS IS CONSISTENT WITH SEVERE GASTROPARESIS. Oil And Gas Superintendent: [facility] Transcribe Date/Time: Sep 12 2022 3:02P Dictated by : LUZ MARINA VÁZQUEZ MD This examination was interpreted and the report reviewed and electronically signed by: LUZ MARINA VÁZQUEZ MD on Sep 12 2022 3:05PM EST [id number]^[id number]^SI^ACN * * *Final Report* * * DATE [...] 4 HOURS IS CONSISTENT WITH SEVERE GASTROPARESIS. Oil And Gas Superintendent: MINAL Transcribe Date/Time: Sep 12 2022 3:02P Dictated by : LUZ MARINA VÁZQUEZ MD This examination was interpreted and the report reviewed and electronically signed by: LUZ MARINA VÁZQUEZ MD on Sep 12 2022 3:05PM EST [id number]^SI^ACN Emerald Sanchez MD [facility] Final Result documented in this encounter Visit Diagnoses Not on filedocumented in this encounter Care Teams Weather Clerk Relationship Specialty Start Date End Date Emerald Sanchez MD [address] [facility] 110 [place] [address] PCP - Medical [place] Commercial 10/22/18 04/23/99 Emerald Sanchez MD [address] [facility] 110 [place] [address] PCP - General Family Medicine 08/30/22 documented as of this encounter
--- OUTSIDE RECORDS SUMMARY | 2025-01-09 12:13 | XMS_ITS | Encounter Summary ---
Author Organization [facility] Address [address] [place] [address] Care Team Providers Care J2Ee Developer Name Role Phone Emerald Sanchez MD Primary Care Provider [phone] Deena Osorio COD CLERK Unavailable [phone] Darwin Starr DO Unavailable [phone] Source Comments In the event this information is protected by the Federal Confidentiality of Alcohol and Drug AbusePatient Records regulations: The Federal rules restrict any use of the information to criminally investigate or prosecute any alcohol or drug abuse patient.[facility] Encounter Details Date Type Department Care Team (Late st Contact Info) Description 05/21/2024 GI Preprocedure Call Ambulatory Surgery [address] [place] [address] [place] [address] [place] [address] Social History Tobacco Use Types Packs/Day Years [...] is lower risk 4 10/17/2022 Data from: https://www.neighborhoodatlas.medicine.[facility]/. Last address used for calculation [address] [...] documented as of this encounter Care Teams J2Ee Developer Relationship Specialty Start Date End Date Emerald Sanchez MD [address] [facility] 110 [place] [address] PCP - General Family Medicine 03/27/19 Deena Osorio APRN [address] [facility] 110 [place] [address] Referring Family Medicine 04/03/24 Darwin Starr DO [address] [facility] [place] [address] Referring Master [employer] 07/02/24 documented as of this encounter
--- OUTSIDE RECORDS SUMMARY | 2025-01-09 12:13 | XMS_ITS | Encounter Summary ---
Author Organization [facility] Address [address] [facility] [place] [address] Care Team Providers Care Grinder Set Up Operator Name Role Phone Emerald Sanchez MD Unavailable Emerald Sanchez MD Primary Care Provider [phone] Encounter Details Date Type Department Care Team (Late st Contact Info) Description 01/09/2024 Abstract [facility] [place] [facility] [address] [facility] 110 [place] [address] Emerald Sanchez MD [address] [place] 110 [place] [address] Social History Tobacco Use Types Packs/Day Years [...] often do you attend chur ch or yazidi services? Never 04/18/2023 Do you belong to [...] [facility] [address] [place] [address] 01/15/2025 4:00 PM EDT Clinical Support [facility] NMA POD 368 [place] [address] Milton Duvall, DPM FACFAS 368 [place] [address] 02/28/2025 9:00 AM EST Office Visit [facility] [place] [facility] [address] [facility] 310 [place] [address] Jatin Cabrera MD 6255 [facility] [address] [id number] 03/18/2025 9:00 AM EST Office Visit [facility] [address] [facility] 110 [place] [address] Emerald Sanchez MD [address] [facility] 110 [place] [address] documented as of this encounter Goals Goal [...] documented as of this encounter Care Teams Grinder Set Up Operator Relationship Specialty Start Date End Date Emerald Sanchez MD [address] [facility] 110 [place] [address] PCP - Medical [place] Commercial 10/22/18 04/23/99 Emerald Sanchez MD [address] [place] [address] [place] [address] PCP - General Family Medicine 08/30/22 documented as of this encounter
--- OUTSIDE RECORDS SUMMARY | 2025-01-09 12:13 | XMS_ITS | Encounter Summary ---
Author Organization [facility] Address [address] [facility] [place] [address] Care Team Providers Care Skirt Panel Assembler Name Role Phone Emerald Sanchez MD Unavailable Emerald Sanchez MD Primary Care Provider [phone] Encounter Details Date Type Department Care Team (Late st Contact Info) Description 12/13/2024 Abstract [facility] [address] [facility] 110 [place] [address] Emerald Sanchez MD [address] [place] 110 [place] [address] Social History Tobacco Use Types Packs/Day Years [...] How often do you attend scientology or orthodoxy serv ices? Never 05/09/2024 Do you belong [...] Recorded Patient Health Questionnaire-2 Score 4 10/08/2024 [facility] of Occupat ional Health [...] [facility] [address] [place] [address] 01/15/2025 4:00 PM EDT Clinical Support [facility] N[facility]OD [address] [facility] [place] [address] Milton Duvall, DPM FACFAS 368 [facility] [place] [address] 02/28/2025 9:00 AM EST Office Visit [facility] [place] [facility] [address] [facility] 310 [place] [address] Jatin Cabrera MD 3518 [facility] [address] [address] 03/18/2025 9:00 AM EST Office Visit [facility] [address] [facility] 110 [place] [address] Emerald Sanchez MD [address] [facility] 110 [place] [address] documented as of this encounter Goals Goal [...] documented as of this encounter Care Teams Skirt Panel Assembler Relationship Specialty Start Date End Date Emerald Sanchez MD [address] [facility] 110 [place] [address] PCP - Medical [place] Commercial 10/22/18 04/23/99 Emerald Sanchez MD [address] [facility] 110 [place] [address] PCP - General Family Medicine 08/30/22 documented as of this encounter
--- OUTSIDE RECORDS SUMMARY | 2025-01-09 12:13 | XMS_ITS | Encounter Summary ---
Author Organization [facility] Address [address] [facility] [place] [address] Care Team Providers Care Cycling Instructor Name Role Phone Emerald Sanchez MD Unavailable Emerald Sanchez MD Primary Care Provider [phone] Encounter Details Date Type Department Care Team (Late st Contact Info) Description 05/30/2024 Abstract [facility] [place] [facility] [address] [facility] 110 [place] [address] Emerald Sanchez MD [address] [place] 110 [place] [address] Social History Tobacco Use Types Packs/Day Years [...] How often do you attend episcopalian or worship serv ices? Never 05/09/2024 Do [...] and heating? Not hard at all 05/09/2024 [facility] - Occupational Stress Questionnaire [...] any time in the past 12 m [facility], were you homeless or living [...] [facility] [address] [place] [address] 01/15/2025 4:00 PM EDT Clinical Support [facility] POD 368 [facility] [place] [place] [address] Milton Duvall, DPM FACFAS 368 [facility] [place] [address] 02/28/2025 9:00 AM EST Office Visit [facility] [facility] [address] [facility] 310 [place] [address] Jatin Cabrera MD 4151 [facility] [address] [address] 03/18/2025 9:00 AM EST Office Visit [facility] [place] [facility] [address] [facility] 110 [place] [address] Emerald Sanchez MD [address] [facility] 110 [place] [address] documented as of this encounter Goals Goal [...] documented as of this encounter Care Teams Cycling Instructor Relationship Specialty Start Date End Date Emerald Sanchez MD [address] [facility] 110 [place] [address] PCP - Medical [place] Commercial 10/22/18 04/23/99 Emerald Sanchez MD [address] [facility] 110 [place] [address] PCP - General Family Medicine 08/30/22 documented as of this encounter
--- OUTSIDE RECORDS SUMMARY | 2025-01-09 12:13 | XMS_ITS | Encounter Summary ---
Author Organization [facility] Address [address] [facility] [place] [address] Care Team Providers Care Sleeve Separator Name Role Phone Emerald Sanchez MD Unavailable Emerald Sanchez MD Primary Care Provider [phone] Encounter Details Date Type Department Care Team (Late st Contact Info) Description 05/20/2024 Abstract [facility] [place] [facility] [address] [facility] 110 [place] [address] Emerald Sanchez MD [address] [place] 110 [place] [address] Social History Tobacco Use Types Packs/Day Years [...] How often do you attend anabaptist or sabianist serv ices? Never 05/09/2024 Do [...] and heating? Not hard at all 05/09/2024 [facility] - Occupational Stress Questionnaire [...] [facility] [address] [place] [address] 01/15/2025 4:00 PM EDT Clinical Support [facility] NMA POD 368 [facility] [place] [address] Milton Duvall, DPM FACFAS 368 [facility] [place] [address] 02/28/2025 9:00 AM EST Office Visit [facility] [place] [facility] [address] [facility] 310 [place] [address] Jatin Cabrera MD 7905 [facility] [address] [address] 03/18/2025 9:00 AM EST Office Visit [facility] [place] [facility] [address] [facility] 110 [place] [address] Emerald Sanchez MD [address] [facility] 110 [place] [address] documented as of this encounter Goals Goal [...] documented as of this encounter Care Teams Sleeve Separator Relationship Specialty Start Date End Date Emerald Sanchez MD [address] [facility] 110 [place] [address] PCP - Medical [place] Commercial 10/22/18 04/23/99 Emerald Sanchez MD [address] [facility] 110 [place] [address] PCP - General Family Medicine 08/30/22 documented as of this encounter
--- OUTSIDE RECORDS SUMMARY | 2025-01-09 12:13 | XMS_ITS | Encounter Summary ---
Author Organization [facility] Address [address] [facility] [place] [address] Care Team Providers Care Program Support Assistant Name Role Phone Emerald Sanchez MD Unavailable Emerald Sanchez MD Primary Care Provider [phone] Encounter Details Date Type Department Care Team (Late st Contact Info) Description 11/30/2023 Abstract [facility] [place] [facility] [address] [facility] 110 [place] [address] Emerald Sanchez MD [address] [place] [address] [place] [address] Social History Tobacco Use Types Packs/Day Years [...] [facility] [address] [place] [address] 01/15/2025 4:00 PM EDT Clinical Support [facility] N[facility] POD 368 [place] [address] Milton Duvall, DPM FACFAS 368 [place] [address] 02/28/2025 9:00 AM EST Office Visit [facility] [place] [facility] [address] [facility] 310 [place] [address] Jatin Cabrera MD 6099 [facility] [address] [phone] 03/18/2025 9:00 AM EST Office Visit [facility] 112 [facility] 110 [place] [address] Emerald Sanchez MD [address] [facility] 110 [place] [address] documented as of this encounter Goals Goal [...] documented as of this encounter Care Teams Program Support Assistant Relationship Specialty Start Date End Date Emerald Sanchez MD [address] [facility] 110 [place] [address] PCP - Medical [place] Commercial 10/22/18 04/23/99 Emerald Sanchez MD [address] [place] 110 [place] [address] PCP - General Family Medicine 08/30/22 documented as of this encounter
--- OUTSIDE RECORDS SUMMARY | 2025-01-09 12:13 | XMS_ITS | Encounter Summary ---
Author Organization [facility] Address [address] [facility] [place] [address] Care Team Providers Care Metal Flow Coordinator Name Role Phone Emerald Sanchez MD Unavailable Emerald Sanchez MD Primary Care Provider [phone] Encounter Details Date Type Department Care Team (Late st Contact Info) Description 05/20/2024 Abstract [facility] [place] [facility] [address] [facility] 110 [place] [address] Emerald Sanchez MD [address] [place] [address] [place] [address] Social History Tobacco Use Types Packs/Day Years [...] How often do you attend hindu or tenriism serv ices? Never 05/09/2024 Do you belong [...] and heating? Not hard at all 05/09/2024 [facility] - Occupational Stress Questionnaire Answer Date [...] any time in the past 12 m [facility], were you homeless or living in [...] [facility] [address] [place] [address] 01/15/2025 4:00 PM EDT Clinical Support [facility] POD [address] [facility] [place] [address] Milton Duvall, DPM FACFAS 368 [facility] [place] [address] 02/28/2025 9:00 AM EST Office Visit [facility] [place] [facility] [address] [facility] 310 [place] [address] Jatin Cabrera MD 3146 [facility] [address] [address] 03/18/2025 9:00 AM EST Office Visit [facility] [place] [facility] [address] [facility] 110 [place] [address] Emerald Sanchez MD [address] [facility] 110 [place] [address] documented as of this encounter Goals Goal [...] documented as of this encounter Care Teams Metal Flow Coordinator Relationship Specialty Start Date End Date Emerald Sanchez MD [address] [facility] 110 [place] [address] PCP - Medical [place] Commercial 10/22/18 04/23/99 Emerald Snachez MD [address] [facility] 110 [place] [address] PCP - General Family Medicine 08/30/22 documented as of this encounter
--- OUTSIDE RECORDS SUMMARY | 2025-01-09 12:13 | XMS_ITS | Encounter Summary ---
Author Organization [facility] Address [address] [facility] [place] [address] Care Team Providers Care Filemaker Developer Name Role Phone Emerald Sanchez MD Unavailable Emerald Sanchez MD Primary Care Provider [phone] Encounter Details Date Type Department Care Team (Late st Contact Info) Description 01/12/2024 Abstract [facility] [place] [facility] [address] [facility] 110 [place] [address] Emerald Sanchez MD [address] [place] 110 [place] [address] Social History Tobacco Use Types Packs/Day Years [...] any clubs o r organizations such as religion groups, unions, fraternal or athletic groups, or [...] [facility] [address] [place] [address] 01/15/2025 4:00 PM EDT Clinical Support [facility] NMA POD 368 [place] [address] Milton Duvall, DPM FACFAS 368 [place] [address] 02/28/2025 9:00 AM EST Office Visit [facility] [place] [facility] [address] [facility] 310 [place] [address] Jatin Cabrera MD 6617 [facility] [address] [id number] 03/18/2025 9:00 AM EST Office Visit [facility] 112 [facility] 110 [place] [address] Emerald Sanchez MD [address] [facility] 110 [place] [address] documented as of this encounter Goals Goal [...] documented as of this encounter Care Teams Filemaker Developer Relationship Specialty Start Date End Date Emerald Sanchez MD [address] [facility] 110 [place] [address] PCP - Medical [place] Commercial 10/22/18 04/23/99 Emerald Sanchez MD [address] [place] [address] [place] [address] PCP - General Family Medicine 08/30/22 documented as of this encounter
--- OUTSIDE RECORDS SUMMARY | 2025-01-09 12:13 | XMS_ITS | Encounter Summary ---
Author Organization [facility] Address [address] [facility] [place] [address] Care Team Providers Care Secured Entrance Monitor Name Role Phone Emerald Sanchez MD Unavailable Emerald Sanchez MD Primary Care Provider [phone] Encounter Details Date Type Department Care Team (Late st Contact Info) Description 01/15/2024 Abstract [facility] [place] [facility] [address] [facility] 110 [place] [address] Emerald Sanchez MD [address] [place] 110 [place] [address] Social History Tobacco Use Types Packs/Day Years [...] often do you attend chur ch or voodoo services? Never 04/18/2023 Do you belong to [...] [facility] [address] [place] [address] 01/15/2025 4:00 PM EDT Clinical Support [facility] N[facility] POD 368 [place] [address] Milton Duvall, DPM FACFAS 368 [place] [address] 02/28/2025 9:00 AM EST Office Visit [facility] [place] [facility] [address] [facility] 310 [place] [address] Jatin Cabrera MD [address] [facility] [address] [id number] 03/18/2025 9:00 AM EST Office Visit [facility] 112 [facility] 110 [place] [address] Emerald Sanchez MD [address] [facility] 110 [place] [address] documented as of this encounter Goals Goal [...] documented as of this encounter Care Teams Secured Entrance Monitor Relationship Specialty Start Date End Date Emerald Sanchez MD [address] [facility] 110 [place] [address] PCP - Medical [place] Commercial 10/22/18 04/23/99 Emerald Sanchez MD [address] [place] 110 [place] [address] PCP - General Family Medicine 08/30/22 documented as of this encounter
--- OUTSIDE RECORDS SUMMARY | 2025-01-09 12:13 | XMS_ITS | Encounter Summary ---
Author Organization [facility] Address [address] [facility] [place] [address] Care Team Providers Care Creative Producer Name Role Phone Emerald Sanchez MD Unavailable Emerald Sanchez MD Primary Care Provider [phone] Encounter Details Date Type Department Care Team (Late st Contact Info) Description 05/16/2024 Abstract [facility] [place] [facility] [address] [facility] 110 [place] [address] Emerald Sanchez MD [address] [place] 110 [place] [address] Social History Tobacco Use Types Packs/Day Years [...] How often do you attend mormonism or mormon serv ices? Never 05/09/2024 Do [...] and heating? Not hard at all 05/09/2024 [facility] - Occupational Stress [...] [facility] [address] [place] [address] 01/15/2025 4:00 PM EDT Clinical Support [facility] POD 368 [facility] [place] [address] Milton Duvall, DPM FACFAS 368 [facility] [place] [address] 02/28/2025 9:00 AM EST Office Visit [facility] [place] [facility] [address] [facility] 310 [place] [address] Jatin Cabrera MD 2719 [facility] [address] [address] 03/18/2025 9:00 AM EST Office Visit [facility] [place] [facility] [address] [facility] 110 [place] [address] Emerald Sanchez MD [address] [facility] 110 [place] [address] documented as of this encounter Goals Goal [...] documented as of this encounter Care Teams Creative Producer Relationship Specialty Start Date End Date Emerald Sanchez MD [address] [facility] 110 [place] [address] PCP - Medical [place] Commercial 10/22/18 04/23/99 Emerald Sanchez MD [address] [place] [facility] 110 [place] [address] PCP - General Family Medicine 08/30/22 documented as of this encounter
--- OUTSIDE RECORDS SUMMARY | 2025-01-09 12:13 | XMS_ITS | Encounter Summary ---
Author Organization [facility] Address [address] [place] [address] Care Team Providers Care Aquarium Tank Attendant Name Role Phone Emerald Sanchez MD Primary Care Provider [phone] Deena Osorio APRN Unavailable [phone] Darwin Starr DO Unavailable [phone] Source Comments In the event this information is protected by the Federal Confidentiality of Alcohol and Drug AbusePatient Records regulations: The Federal rules restrict any use of the information to criminally investigate or prosecute any alcohol or drug abuse patient.[facility] Encounter Details Date Type Department Care Team (Late st Contact Info) Description 04/19/2024 Patient Msg Cardiology [address] [place], [place] [phone] Provider, Ccf Heart monitor results Social History [...] 4 10/17/2022 Data from: https://www.neighborhoodatlas.medicine.[facility]/. Last address used for calculation [address] [...] documented as of this encounter Care Teams Aquarium Tank Attendant Relationship Specialty Start Date End Date Emerald Sanchez MD [address] [facility] 110 [place] [address] PCP - General Family Medicine 03/27/19 Deena Osorio APRN [address] [facility] 110 [place] [address] Referring Family Medicine 04/03/24 Darwin Starr DO [address] [facility] [place] [address] Referring Supervisor Fitting 07/02/24 documented as of this encounter
--- OUTSIDE RECORDS SUMMARY | 2025-01-09 12:13 | XMS_ITS | Encounter Summary ---
Author Organization [facility] Address [address] [place] [address] Care Team Providers Care Entry Processor Name Role Phone Emerald Sanchez MD Unavailable Emerald Sanchez MD Primary Care Provider [phone] Encounter Details Date Type Department Care Team (Late Contact Info) Description 11/03/2022 Abstract [facility] [place] [facility] [address] [facility] 110 [place] [address] Emerald Sanchez MD [address] [facility] 110 [place] [address] Social History Tobacco Use Types Packs/Day Years Used Date Smoking Tobacco: Never Assessed Comments Unknown Sex and Gender Information Value Date Recorded Sex Assigned at Not on file Legal Sex Female 7:29 PM EDT Gender Identity Not on file Sexual Orientation Not on file documented as of this encounter Plan of Treatment Upcoming Encounters Date Type Department Care Team (Late Contact Info) Description 01/14/2025 6:00 PM EDT Ancillary Procedure [facility] [place] [facility] [address] [place] [address] 01/15/2025 4:00 PM EDT Clinical Support [facility] POD 368 [facility] [place] [address] Milton Duvall, DPM FACFAS 368 [facility] [place] [address] 02/28/2025 9:00 AM EST Office Visit [facility] [address] [facility] 310 [place] [address] Jatin Cabrera MD [address] [facility] [address] [id number] 03/18/2025 9:00 AM EST Office Visit [facility] [place] [facility] [address] [facility] 110 [place] [address] Emerald Sanchez MD [address] [facility] 110 [place] [address] documented as of this encounter Visit Diagnoses Not on filedocumented in this encounter Care Teams Entry Processor Relationship Specialty Start Date End Date Emerald Sanchez MD [address] [facility] 110 [place] [address] PCP - Medical [place] Commercial 10/22/18 04/23/99 Emerald Sanchez MD [address] [facility] 110 [place] [address] PCP - General Family Medicine 08/30/22 documented as of this encounter
--- OUTSIDE RECORDS SUMMARY | 2025-01-09 12:13 | XMS_ITS | Encounter Summary ---
Author Organization [facility] Address [address] [facility] [place] [address] Care Team Providers Care Filing Or Registry Clerk Name Role Phone Emerald Sanchez MD Unavailable Emerald Sanchez MD Primary Care Provider [phone] Encounter Details Date Type Department Care Team (Late st Contact Info) Description 12/12/2024 Abstract [facility] [place] [facility] [address] [facility] 110 [place] [address] Emerald Sanchez MD [address] [place] 110 [place] [address] Social History Tobacco Use Types Packs/Day Years [...] How often do you attend episcopalian or baptism serv ices? Never 05/09/2024 Do [...] Recorded Patient Health Questionnaire-2 Score 4 10/08/2024 [facility] Occupat ional [...] any time in the past 12 m [facility], were you homeless or living [...] [facility] [address] [place] [address] 01/15/2025 4:00 PM EDT Clinical Support [facility] N[facility] POD 368 [facility] [place] [address] Milton Duvall, DPM FACFAS 368 [facility] [place] [address] 02/28/2025 9:00 AM EST Office Visit [facility] [place] [facility] [address] [facility] 310 [place] [address] Jatin Cabrera MD 2724 [facility] [address] [address] 03/18/2025 9:00 AM EST Office Visit [facility] [place] [facility] [address] [facility] 110 [place] [address] Emerald Sanchez MD [address] [facility] 110 [place] [address] documented as of this encounter Goals Goal [...] documented as of this encounter Care Teams Filing Or Registry Clerk Relationship Specialty Start Date End Date Emerald Sanchez MD [address] [facility] 110 [place] [address] PCP - Medical [place] Commercial 10/22/18 04/23/99 Emerald Sanchez MD [address] [facility] 110 [place] [address] PCP - General Family Medicine 08/30/22 documented as of this encounter
--- OUTSIDE RECORDS SUMMARY | 2025-01-09 12:14 | XMS_ITS | Encounter Summary ---
Author Organization [facility] Address [address] [facility] [place] [address] Care Team Providers Care Mortgage Lender Name Role Phone Emerald Sanchez MD Unavailable Emerald Sanchez MD Primary Care Provider [phone] Encounter Details Date Type Department Care Team (Late st Contact Info) Description 04/03/2024 Abstract [facility] [place] [facility] [address] [facility] 110 [place] [address] Emerald Sanchez MD [address] [place] 110 [place] [address] Social History Tobacco Use Types Packs/Day Years [...] often do you attend chur ch or congregational services? Never 04/18/2023 Do you belong to [...] and heating? Not hard at all 04/18/2023 [facility]at ional Health [...] Ancillary Procedure [facility] [place] [facility] [address] [place] [address] 01/15/2025 4:00 PM EDT Clinical Support N[facility] NMA POD 368 [place] [address] Milton Duvall, DPM FACFAS 368 [place] [address] 02/28/2025 9:00 AM EST Office Visit [facility] [place] [facility] [address] [facility] 310 [place] [address] Jatin Cabrera MD 1679 [facility] [address] [address] 03/18/2025 9:00 AM EST Office Visit [facility] 112 [facility] 110 [place] [address] Emerald Sanchez MD [address] [facility] 110 [place] [address] documented as of this encounter Goals Goal [...] documented as of this encounter Care Teams Mortgage Lender Relationship Specialty Start Date End Date Emerald Sanchez MD [address] [place] [facility] 110 [place] [address] PCP - Medical [place] Commercial 10/22/18 04/23/99 Emerald Sanchez MD [address] [place] [address] [place] [address] PCP - General Family Medicine 08/30/22 documented as of this encounter
--- OUTSIDE RECORDS SUMMARY | 2025-01-09 12:14 | XMS_ITS | Encounter Summary ---
Author Organization [facility] Address [address] [facility] [place] [address] Care Team Providers Care Sound Assistant Name Role Phone Emerald Sanchez MD Unavailable Emerald Sanchez MD Primary Care Provider [phone] Encounter Details Date Type Department Care Team (Late st Contact Info) Description 01/06/2025 Bamboo flowsheet [facility] [place] [facility] [address] [facility] 110 [place] [address] Emerald Sanchez MD 112 [facility] 110 [place] [address] Social History Tobacco Use Types Packs/Day Years Used Date Smoking Tobacco: Every Day Cigarettes Smokeless Tobacco: Never Alcohol Use Standard [...] How often do you attend rastafari or jew serv ices? Never 05/09/2024 Do you belong [...] Recorded Patient Health Questionnaire-2 Score 4 01/06/2025 [facility] - [...] in the past 12 m [facility], were you homeless or living in a [...] Procedure [facility] [place] [facility] [address] [place] [address] 01/15/2025 4:00 PM EDT Clinical Support [facility] POD [address] [facility] [place] [address] Milton Duvall, DPM FACFAS 368 [facility] [place] [address] 02/28/2025 9:00 AM EST Office Visit [facility] [place] [facility] [address] [facility] 310 [place] [address] Jatin Cabrera MD 5132 [facility] [address] [id number] 03/18/2025 9:00 AM EST Office Visit [facility] [address] [facility] 110 [place] [address] Emerald Sanchez MD 112 [facility] 110 [place] [address] documented as of this encounter Goals Goal [...] documented as of this encounter Care Teams Sound Assistant Relationship Specialty Start Date End Date Emerald Sanchez MD 112 [facility] 110 [place] [address] PCP - Medical [place] Commercial 10/22/18 04/23/99 Emerald Sanchez MD 112 [facility] 110 [place] [address] PCP - General Family Medicine 08/30/22 documented as of this encounter
--- OUTSIDE RECORDS SUMMARY | 2025-01-09 12:14 | XMS_ITS | Encounter Summary ---
Author Organization [facility] Address [address] [place] [address] Care Team Providers Care Abrasive Worker Name Role Phone Emerald Sanchez MD Primary Care Provider [phone] Deena Osorio APRN Unavailable [phone] Darwin Starr DO Unavailable [phone] Source Comments In the event this information is protected by the Federal Confidentiality of Alcohol and Drug AbusePatient Records regulations: The Federal rules restrict any use of the information to criminally investigate or prosecute any alcohol or drug abuse patient.[facility] Encounter Details Date Type Department Care Team (Late st Contact Info) Description 03/20/2023 Patient Msg Gastroenterology [address] [place] [address] [place] [address] [place] [address] Appointment Request Social History Tobacco Use Types [...] lower risk 4 10/17/2022 Data from: https://www.neighborhoodatlas.medicine.[facility].edu/. Last address used for calculation [address] [...] documented as of this encounter Care Teams Abrasive Worker Relationship Specialty Start Date End Date Emerald Sanchez MD [address] [place] 110 [place] [address] PCP - General Family Medicine 03/27/19 Deena Osorio APRN [address] [place] 110 [place] [address] Referring Family Medicine 04/03/24 Darwin Starr DO [address] [facility] [place] [address] Referring Carrier Washer 07/02/24 documented as of this encounter
--- OUTSIDE RECORDS SUMMARY | 2025-01-09 12:14 | XMS_ITS | Encounter Summary ---
Author Organization [facility] Address [address] [facility] [place] [address] Care Team Providers Care Switch House Operator Name Role Phone Emerald Sanchez MD Unavailable Emerald Sanchez MD Primary Care Provider [phone] Reason for Visit * Reason Comments Med Change Request Encounter Details Date Type Department Care Team (Late st Contact Info) Description 01/07/2025 Refill [facility] [place] [facility] [address] [facility] 110 [place] [address] Emerald Sanchez MD 112 [facility] 110 [place] [address] Obesity (BMI 35.0-39.9 without comorbidity) Social History Tobacco Use Types Packs/Day Years [...] week 05/09/2024 How often do you attend jehovah's witness or jehovah's witness serv ices? Never 05/09/2024 Do you belong to any clubs o r organizations such as jehovah's witness groups, unions, [...] Recorded Patient Health Questionnaire-2 Score 4 01/06/2025 [facility] [place] of Occupat ional Health - Occupational Stress [...] any time in the past 12 m onths, were you homeless or living in a fci (including now)? No 05/09/2024 Comments No Sex and Gender Information Value Date Recorded Sex Assigned at Not on file Legal Sex Female 7:29 PM EDT Gender Identity Not on file Sexual Orientation Not on file documented as of this encounter Miscellaneous Notes * Telephone Encounter - BALDO STRONG - 01/08/2025 9:17 AM EDT Patient is asking for a refill, but I couldn't fine is on her current or past medication list documented in this encounter Plan of Treatment Upcoming Encounters Date Type Department Care Team (Late st Contact Info) Description 01/14/2025 6:00 PM EDT Ancillary Procedure [facility] [place] [facility] [address] [place] [address] 01/15/2025 4:00 PM EDT Clinical Support N[facility] NMA POD [address] [facility] [place] [address] Milton Duvall, DPM FACFAS 368 [facility] [place] [address] 02/28/2025 9:00 AM EST Office Visit [facility] [address] [facility] 310 [place] [address] Jatin Cabrera MD 6986 Jose Alejandro [address] [id number] 03/18/2025 9:00 AM EST Office Visit [facility] [place] [facility] [address] [facility] 110 [place] [address] Emerald Sanchez MD [address] [facility] 110 [place] [address] documented as of this encounter Goals Goal Patient Goal Type Associated Problems Recent Progress Patient-Stated? Author Help patient manage antidepressant medication Care Plan Patient on antidepressant monitoring plan No Emerald Sanchez MD Baseline PHQ-9 Care Plan Baseline PHQ-9 No Emerald Sanchez MD documented as of this encounter Visit Diagnoses Diagnosis Obesity (BMI 35.0-39.9 without comorbidity) documented in this encounter Additional Health Concerns Active Problems Noted Date Diagnosed Date Patient on antidepressant monitoring plan 2023 Baseline PHQ-9 05/08/2023 Assessment Noted Time PHQ-9 Depression Total Score: 13 025 10:55 AM EDT documented as of this encounter Care Teams Switch House Operator Relationship Specialty Start Date End Date Emerald Sanchez MD [address] [facility] 110 [place] [address] PCP - Medical [place] Commercial 10/22/18 04/23/99 Emerald Sanchez MD 112 [place] [address] PCP - General Family Medicine 08/30/22 documented as of this encounter
--- OUTSIDE RECORDS SUMMARY | 2025-01-09 12:14 | XMS_ITS | Encounter Summary ---
Author Organization [facility] Address [address] [facility] [place] [address] Care Team Providers Care Motor Equipment Sergeant Name Role Phone Emerald Sanchez MD Unavailable Emerald Sanchez MD Primary Care Provider [phone] Encounter Details Date Type Department Care Team (Late st Contact Info) Description 04/09/2024 Orders Only [facility] [address] [place] [phone] Patricia Waldrop MA [address] [place] [address] Social History Tobacco Use Types Packs/Day Years [...] often do you attend chur ch or religion services? Never 04/18/2023 Do you belong to any clubs o r organizations such as mandaeism groups, unions, fraternal or athletic groups, or [...] and heating? Not hard at all 04/18/2023 [facility] of Occupat ional Health - Occupational Stress [...] Ancillary Procedure [facility] [address] [facility] [place] [address] 01/15/2025 4:00 PM EDT Clinical Support [facility] POD 368 [place] [address] Milton Duvall, DPM FACFAS 368 [place] [address] 02/28/2025 9:00 AM EST Office Visit [facility] [address] [facility] 310 [place] [address] Jatin Cabrera MD 0485 [facility] [address] [address] 03/18/2025 9:00 AM EST Office Visit [facility] [address] [facility] 110 [place] [address] Emerald Sanchez MD 112 [facility] 110 [place], [place] [address] documented as of this encounter Goals Goal [...] as of this encounter Care Teams Motor Equipment Sergeant Relationship Specialty Start Date End Date Emerald Sanchez MD [address] [facility] 110 [place] [address] PCP - Medical [place] Commercial 10/22/18 04/23/99 Emerald Sanchez MD [address] [facility] 110 [place] [address] PCP - General Family Medicine 08/30/22 documented as of this encounter
--- OUTSIDE RECORDS SUMMARY | 2025-01-09 12:14 | XMS_ITS | Encounter Summary ---
Author Organization [facility] Address [address] [facility] [place] [address] Care Team Providers Care Surgeon Assistant Name Role Phone Emerald Sanchez MD Unavailable Emerald Sanchez MD Primary Care Provider [phone] Encounter Details Date Type Department Care Team (Late st Contact Info) Description 04/23/2024 Abstract [facility] [place] [facility] [address] [facility] 110 [place] [address] Emerald Sanchez MD [address] [place] 110 [place] [address] Social History Tobacco Use Types Packs/Day Years [...] [facility] [address] [place] [address] 01/15/2025 4:00 PM EDT Clinical Support [facility] N[facility] POD 368 [place] [address] Milton Duvall, DPM FACFAS 368 [place] [address] 02/28/2025 9:00 AM EST Office Visit [facility] [address] [facility] 310 [place] [address] Jatin Cabrera MD 2305 [facility] [address] [id number] 03/18/2025 9:00 AM EST Office Visit [facility] 112 [facility] 110 [place] [address] Emerald Sanchez MD [address] [facility] 110 [place] [address] documented as of this encounter Goals Goal [...] documented as of this encounter Care Teams Surgeon Assistant Relationship Specialty Start Date End Date Emerald Sanchez MD [address] [facility] 110 [place] [address] PCP - Medical [place] Commercial 10/22/18 04/23/99 Emerald Sanchez MD [address] [place] 110 [place] [address] PCP - General Family Medicine 08/30/22 documented as of this encounter
--- OUTSIDE RECORDS SUMMARY | 2025-01-09 12:14 | XMS_ITS | Encounter Summary ---
Author Organization [facility] Address [address] [facility] [place] [address] Care Team Providers Care Hedge Fund Accountant Name Role Phone Emerald Sanchez MD Unavailable Emerald Sanchez MD Primary Care Provider [phone] Encounter Details Date Type Department Care Team (Late st Contact Info) Description 12/17/[address] [facility] [address] [facility] 110 [place] [address] Emerald Sanchez MD [address] [place] 110 [place] [address] Social History Tobacco Use Types Packs/Day Years [...] week 05/09/2024 How often do you attend adventism or christian serv ices? Never 05/09/2024 Do you belong [...] Recorded Patient Health Questionnaire-2 Score 4 10/08/2024 [facility] of Occupat ional Health - Occupational [...] in the past 12 m [facility], were you homeless or living in a [...] [facility] [address] [place] [address] 01/15/2025 4:00 PM EDT Clinical Support [facility] [address] [facility] [place] [address] Milton Duvall, DPM FACFAS 368 [facility] [place] [address] 02/28/2025 9:00 AM EST Office Visit [facility] [address] [facility] 310 [place] [address] Jatin Cabrera MD 8948 [facility] [address] [address] 03/18/2025 9:00 AM EST Office Visit [facility] [address] [facility] 110 [place] [address] Emerald Sanchez MD [address] [facility] 110 [place] [address] documented as of this encounter Goals Goal [...] documented as of this encounter Care Teams Hedge Fund Accountant Relationship Specialty Start Date End Date Emerald Sanchez MD [address] [facility] 110 [place] [address] PCP - Medical [place] Commercial 10/22/18 04/23/99 Emerald Sanchez MD [address] [facility] 110 [place] [address] PCP - General Family Medicine 08/30/22 documented as of this encounter
--- OUTSIDE RECORDS SUMMARY | 2025-01-09 12:14 | XMS_ITS | Encounter Summary ---
Author Organization [facility] Address [address] [facility] [place] [address] Care Team Providers Care Industrial Green Systems Designer Name Role Phone Emerald Sanchez MD Unavailable Emerald Sanchez MD Primary Care Provider [phone] Encounter Details Date Type Department Care Team (Late st Contact Info) Description 04/23/2024 Abstract [facility] [place] [facility] [address] [facility] 110 [place] [address] Emerald Sanchez MD [address] [place] 110 [place] [address] Social History Tobacco Use Types Packs/Day Years [...] any clubs o r organizations such as protestant groups, unions, fraternal or athletic groups, or [...] and heating? Not hard at all 04/18/2023 [facility] of Occupat ional Health - Occupational [...] [facility] [address] [place] [place] [address] 01/15/2025 4:00 PM EDT Clinical Support [facility] N[facility] POD 368 [place] [address] Milton Duvall, DPM FACFAS 368 [place] [address] 02/28/2025 9:00 AM EST Office Visit [facility] [address] [facility] 310 [place] [address] Jatin Cabrera MD 0343 [facility] [address] [id number] 03/18/2025 9:00 AM EST Office Visit [facility] 112 [facility] 110 [place] [address] Emerald Sanchez MD [address] [facility] 110 [place] [address] documented as of this encounter Goals Goal [...] documented as of this encounter Care Teams Industrial Green Systems Designer Relationship Specialty Start Date End Date Emerald Sanchez MD [address] [facility] 110 [place] [address] PCP - Medical [place] Commercial 10/22/18 04/23/99 Emerald Sanchez MD [address] [place] 110 [place] [address] PCP - General Family Medicine 08/30/22 documented as of this encounter
--- OUTSIDE RECORDS SUMMARY | 2025-01-09 12:14 | XMS_ITS | Encounter Summary ---
Author Organization [facility] Address [address] [facility] [place] [address] Care Team Providers Care Hoe Worker Name Role Phone Emerald Sanchez MD Unavailable Emerald Sanchez MD Primary Care Provider Reason for Visit * Reason Comments Med Change Request Encounter Details Date Type Department Care Team (Late st Contact Info) Description 01/08/2025 Refill [facility] [place] [facility] [address] [facility] 110 [place] [address] Emerald Sanchez MD 112 [facility] 110 [place] [address] Obesity (BMI 35.0-39.9 without comorbidity) Social History [...] week 05/09/2024 How often do you attend pentecostal or lutheran serv ices? Never 05/09/2024 Do [...] Recorded Patient Health Questionnaire-2 Score 4 01/06/2025 [facility] of Occupat ional Health - Occupational Stress [...] any time in the past 12 m [facility], were you homeless or living [...] [facility] [address] [place] [address] 01/15/2025 4:00 PM EDT Clinical Support [facility] 368 [place] [address] Milton Duvall, DPM FACFAS 368 [place] [address] 02/28/2025 9:00 AM EST Office Visit [facility] [address] [facility] 310 [place] [address] Jatin Cabrera MD 8365 [address] [address] 03/18/2025 9:00 AM EST Office Visit [facility] [place] [facility] [address] [facility] 110 [place] [address] Emerald Sanchez MD [address] [facility] 110 [place] [address] documented as of this encounter Goals Goal [...] Noted Time PHQ-9 Depression Total Score: 13 01/06/ 025 10:55 AM EDT documented as of this encounter Care Teams Hoe Worker Relationship Specialty Start Date End Date Emerald Sanchez MD [address] [facility] 110 [place] [address] PCP - Medical [place] Commercial 10/22/18 04/23/99 Emerald Sanchez MD [address] [facility] 110 [place] [address] PCP - General Family Medicine 08/30/22 documented as of this encounter
--- OUTSIDE RECORDS SUMMARY | 2025-01-09 12:14 | XMS_ITS | Encounter Summary ---
Author Organization [facility] Address [address] [place] [address] Care Team Providers Care Chemical Instrumentation Officer Name Role Phone Emerald Sanchez MD Unavailable Emerald Sanchez MD Primary Care Provider [phone] Encounter Details Date Type Department Care Team (Late st Contact Info) Description 12/12/2023 Orders Only [facility] [place] [facility] [address] [place] 110 [place] [address] Unallocated, Noms Provider, [address] [place] [address] Social History Tobacco Use Types Packs/Day Years [...] often do you attend chur ch or presybeterian services? Never 04/18/2023 Do you belong to any clubs o r organizations such as confucianism groups, unions, fraternal or athletic groups, or [...] [facility] [address] [place] [address] 01/15/2025 4:00 PM EDT Clinical Support [facility] 368 [place] [address] Milton Duvall, DPM FACFAS 368 [place] [address] 02/28/2025 9:00 AM EST Office Visit [facility] [address] [facility] 310 [place] [address] Jatin Cabrera MD 4118 [facility] [address] [address] 03/18/2025 9:00 AM EST Office Visit [facility] [place] [facility] [address] [facility] 110 [place] [address] Emerald Sanchez MD [address] [facility] 110 [place] [address] documented as of this encounter Goals Goal [...] documented as of this encounter Care Teams Chemical Instrumentation Officer Relationship Specialty Start Date End Date Emerald Sanchez MD 112 [facility] 110 [place] [address] PCP - Medical [place] Commercial 10/22/18 04/23/99 Emerald Sanchez MD 112 [facility] 110 [place] [address] PCP - General Family Medicine 08/30/22 documented as of this encounter
--- OUTSIDE RECORDS SUMMARY | 2025-01-09 12:14 | XMS_ITS | Encounter Summary ---
Author Organization [facility] Address [address] [facility] [place] [address] Care Team Providers Care Marketing Instructor Name Role Phone Emerald Sanchez MD Unavailable Emerald Sanchez MD Primary Care Provider [phone] Encounter Details Date Type Department Care Team (Late st Contact Info) Description 10/23/2023 Abstract [facility] [place] [facility] [address] [facility] 110 [place] [address] Emerald Sanchez MD [address] [place] 110 [place] [address] Social History Tobacco Use Types Packs/Day Years [...] any clubs o r organizations such as latter-day groups, unions, fraternal or athletic groups, or [...] and heating? Not hard at all 04/18/2023 [facility] of Occupat ional Health - Occupational [...] [facility] [address] [place] [address] 01/15/2025 4:00 PM EDT Clinical Support [facility] 368 [place] [address] Milton Duvall, DPM FACFAS 368 [place] [address] 02/28/2025 9:00 AM EST Office Visit [facility] [address] [facility] 310 [place] [address] Jatin Cabrera MD 0768 [facility] [address] [id number] 03/18/2025 9:00 AM EST Office Visit [facility] 112 [facility] 110 [place] [address] Emerald aSnchez MD [address] [facility] 110 [place] [address] documented as of this encounter Goals Goal [...] documented as of this encounter Care Teams Marketing Instructor Relationship Specialty Start Date End Date Emerald Sanchez MD [address] [facility] 110 [place] [address] PCP - Medical [place] Commercial 10/22/18 04/23/99 Emerald Sanchez MD [address] [place] 110 [place] [address] PCP - General Family Medicine 08/30/22 documented as of this encounter
--- OUTSIDE RECORDS SUMMARY | 2025-01-09 12:14 | XMS_ITS | Encounter Summary ---
Author Organization [facility] Address [address] [facility] [place] [address] Care Team Providers Care Machine Hoop Maker Name Role Phone Emerald Sanchez MD Unavailable Emerald Sanchez MD Primary Care Provider [phone] Encounter Details Date Type Department Care Team (Late st Contact Info) Description 12/13/2023 Abstract [facility] [place] [facility] [address] [facility] 110 [place] [address] Emerald Sanchez MD [address] [place] 110 [place] [address] Social History Tobacco Use Types Packs/Day Years [...] [facility] [address] [place] [address] 01/15/2025 4:00 PM EDT Clinical Support [facility] N[facility]OD 368 [place] [address] Milton Duvall, DPM FACFAS 368 [place] [address] 02/28/2025 9:00 AM EST Office Visit [facility] [address] [facility] 310 [place] [address] Jatin Caberra MD 3450 [facility] [address] [id number] 03/18/2025 9:00 AM EST Office Visit [facility] 112 [facility] 110 [place] [address] Emerald Sanchez MD [address] [facility] 110 [place] [address] documented as of this encounter Goals Goal [...] documented as of this encounter Care Teams Machine Hoop Maker Relationship Specialty Start Date End Date Emerald Sanchez MD [address] [facility] 110 [place] [address] PCP - Medical [place] Commercial 10/22/18 04/23/99 Emerald Sanchez MD [address] [place] 110 [place] [address] PCP - General Family Medicine 08/30/22 documented as of this encounter
--- OUTSIDE RECORDS SUMMARY | 2025-01-09 12:14 | XMS_ITS | Encounter Summary ---
Author Organization [facility] Address [address] [facility] [place] [address] Care Team Providers Care Boat Officer Name Role Phone Emerald Sanchez MD Unavailable Emerald Sanchez MD Primary Care Provider [phone] Encounter Details Date Type Department Care Team (Late st Contact Info) Description 12/20/2024 Abstract [facility] [address] [facility] 110 [place] [address] Emerald Sanchez MD [address] [place] 110 [place] [address] Social History Tobacco Use Types Packs/Day Years [...] week 05/09/2024 How often do you attend faith or alevism serv ices? Never 05/09/2024 Do [...] Recorded Patient Health Questionnaire-2 Score 4 10/08/2024 [facility] of Occupat ional Health - Occupational [...] time in the past [address] [facility], were you homeless or living [...] [facility] [address] [place] [address] 01/15/2025 4:00 PM EDT Clinical Support [facility] 368 [facility] [place] [address] Milton Duvall, DPM FACFAS 368 [facility] [place] [address] 02/28/2025 9:00 AM EST Office Visit [facility] [address] [facility] 310 [place] [address] Jatin Cabrera MD [address] [facility] [address] [address] 03/18/2025 9:00 AM EST Office Visit [facility] [address] [facility] 110 [place] [address] Emerald Sanchez MD [address] [facility] 110 [place] [address] documented as of this encounter Goals Goal [...] documented as of this encounter Care Teams Boat Officer Relationship Specialty Start Date End Date Emreald Sanchez MD [address] [facility] 110 [place] [address] PCP - Medical [place] Commercial 10/22/18 04/23/99 Emerald Sanchez MD [address] [facility] 110 [place] [address] PCP - General Family Medicine 08/30/22 documented as of this encounter
--- OUTSIDE RECORDS SUMMARY | 2025-01-09 12:14 | XMS_ITS | Encounter Summary ---
Author Organization [facility] Address [address] [place] [address] Care Team Providers Care Reliability Specialist Name Role Phone Emerald Sanchez MD Primary Care Provider [phone] Deena Osoiro HYDRAULIC PRESS OPERATOR Unavailable [phone] Darwin Starr DO Unavailable [phone] Source Comments In the event this information is protected by the Federal Confidentiality of Alcohol and Drug AbusePatient Records regulations: The Federal rules restrict any use of the information to criminally investigate or prosecute any alcohol or drug abuse patient.[facility] Encounter Details Date Type Department Care Team (Late st Contact Info) Description 08/30/2022 GI Preprocedure Call Ambulatory Surgery [address] [place] [address] [place] [address] [place] [address] Social History Tobacco Use Types Packs/Day Years [...] N ot on file 05/27/2022 Data from: [email or web address].[email or web address] Last address used for calculation [address] [...] documented as of this encounter Care Teams Reliability Specialist Relationship Specialty Start Date End Date Emerald Sanchez MD [address] [facility] 110 [place] [address] PCP - General Family Medicine 03/27/19 Denea Osorio APRN [address] [place] 110 [place] [address] Referring Family Medicine 04/03/24 Darwin Starr DO [address] [facility] [place] [address] Referring Trim And Burr Operator 07/02/24 documented as of this encounter
--- OUTSIDE RECORDS SUMMARY | 2025-01-09 12:14 | XMS_ITS | Encounter Summary ---
Author Organization [facility] Address [address] [place] [address] Care Team Providers Care Circus Train Supervisor Name Role Phone Emerald Sanchez MD Unavailable Emerald Sanchez MD Primary Care Provider [phone] Encounter Details Date Type Department Care Team (Latest Contact Info) Description 01/06/2025 Travel Social History Tobacco Use Types Packs/Day [...] week 05/09/2024 How often do you attend oriental orthodox or restoration serv ices? Never 05/09/2024 Do [...] Recorded Patient Health Questionnaire-2 Score 4 01/06/2025 [facility] [place] of Occupat ional Health - Occupational Stress [...] any time in the past 12 m [facility], were you homeless or living [...] other people? Very difficult 01/06/2025 10:55 AM BALDO RUIZ documented as of this encounter Plan of Treatment Upcoming Encounters Date Type Department Care Team (Late st Contact Info) Description 01/14/2025 6:00 PM EDT Ancillary Procedure [facility] [address] [place] [address] 01/15/2025 4:00 PM EDT Clinical Support [facility] NMA POD 368 [place] [address] Milton Duvall, DPM FACFAS 368 [facility] [place] [address] 02/28/2025 9:00 AM EST Office Visit [facility] [address] [facility] 310 [place] [address] Jatin Cabrera MD [address] [facility] [address] [place] [address] [place] [address] 03/18/2025 9:00 AM EST Office Visit [facility] [place] [address] [facility] 110 [place] [address] Emerald Sanchez MD [address] [facility] 110 [place] [address] documented as of this encounter Goals Goal [...] documented as of this encounter Care Teams Circus Train Supervisor Relationship Specialty Start Date End Date Emerald Sanchez MD [address] [facility] 110 [place] [address] PCP - Medical [place] Commercial 10/22/18 04/23/99 Emerald Sanchez MD [address] [facility] 110 [place] [address] PCP - General Family Medicine 08/30/22 documented as of this encounter
--- OUTSIDE RECORDS SUMMARY | 2025-01-09 12:14 | XMS_ITS | Encounter Summary ---
Author Organization [facility] Address [address] [facility] [place] [address] Care Team Providers Care Detailer Pharmaceuticals Name Role Phone Emerald Sanchez MD Unavailable Emerald Sanchez MD Primary Care Provider [phone] Encounter Details Date Type Department Care Team (Late st Contact Info) Description 10/12/2023 Abstract [facility] [place] [facility] [address] [facility] 110 [place] [address] Emerald Sanchez MD [address] [place] 110 [place] [address] Social History Tobacco Use Types Packs/Day Years [...] and heating? Not hard at all 04/18/2023 [facility] Occupat ional Health - [...] [facility] [address] [place] [place] [address] 01/15/2025 4:00 PM EDT Clinical Support [facility] [address] [place] [address] Milton Duvall, DPM FACFAS 368 [place] [address] 02/28/2025 9:00 AM EST Office Visit [facility] [facility] [address] [facility] 310 [place] [address] Jatin Cabrera MD 9198 [facility] [address] [id number] 03/18/2025 9:00 AM EST Office Visit [facility] 112 [facility] 110 [place] [address] Emerald Sanchez MD [address] [facility] 110 [place] [address] documented as of this encounter Goals Goal [...] documented as of this encounter Care Teams Detailer Pharmaceuticals Relationship Specialty Start Date End Date Emerald Sanchez MD [address] [facility] 110 [place] [address] PCP - Medical [place] Commercial 10/22/18 04/23/99 Emerald Sanchez MD [address] [place] 110 [place] [address] PCP - General Family Medicine 08/30/22 documented as of this encounter
--- OUTSIDE RECORDS SUMMARY | 2025-01-09 12:14 | XMS_ITS | Encounter Summary ---
Author Organization [facility] Address [address] [place] [address] Care Team Providers Care Commercial Green Building Architect Name Role Phone Emerald Sanchez MD Primary Care Provider [phone] Deena Osorio CAR WASHER Unavailable [phone] Darwin Starr DO Unavailable [phone] Source Comments In the event this information is protected by the Federal Confidentiality of Alcohol and Drug AbusePatient Records regulations: The Federal rules restrict any use of the information to criminally investigate or prosecute any alcohol or drug abuse patient.[facility] Encounter Details Date Type Department Care Team (Late st Contact Info) Description 01/06/2025 Get Medical Advice Cardiology [address] [place], [place] [id number] Provider, Ccf Testing Social History Tobacco Use Types Packs/Day Years [...] risk 4 10/17/2022 Data from: https://www.neighborhoodatlas.medicine.[facility].edu/. Last address used for calculation [address] [...] on filedocumented in this encounter Care Teams Commercial Green Building Architect Relationship Specialty Start Date End Date Emerald Sanchez MD [address] [place] 110 [place] [address] PCP - General Family Medicine 03/27/19 Deena Osorio, CAR WASHER [address] [place] [address] [place] [address] Referring Family Medicine 04/03/24 Darwin Starr DO [address] [facility] [address] C[address] [place], [place] [address] Referring Help Desk Assistant 07/02/24 documented as of this encounter
--- OUTSIDE RECORDS SUMMARY | 2025-01-09 12:14 | XMS_ITS | Encounter Summary ---
Author Organization [facility] Address [address] [facility] [place] [address] Care Team Providers Care Process Coordinator Name Role Phone Emerald Sanchez MD Unavailable Emerald Sanchez MD Primary Care Provider [phone] Encounter Details Date Type Department Care Team (Late st Contact Info) Description 01/06/2025 Abstract [facility] [place] [facility] [address] [facility] 110 [place] [address] Emerald Sanchez MD [address] [place] 110 [place] [address] Social History Tobacco Use Types Packs/Day Years [...] week 05/09/2024 How often do you attend spiritism or jainism serv ices? Never 05/09/2024 Do you belong [...] Recorded Patient Health Questionnaire-2 Score 4 01/06/2025 [facility] - Occupational Stress Questionnaire [...] any time in the past 12 m [facility], were you homeless or [...] Procedure [facility] [address] [place] [address] 01/15/2025 4:00 PM EDT Clinical Support [facility] [place] [facility] [address] [facility] [place] [place] [address] Milton Duvall, DPM FACFAS [address] [facility] [place] [address] 02/28/2025 9:00 AM EST Office Visit [facility] [address] [facility] 310 [place] [address] Jatin Cabrera MD 9706 [facility] [address] [address] 03/18/2025 9:00 AM EST Office Visit [facility] [address] [facility] 110 [place] [address] Emerald Sanchez MD [address] [facility] 110 [place] [address] documented as of this encounter Goals Goal [...] as of this encounter Care Teams Process Coordinator Relationship Specialty Start Date End Date Emerald Sanchez MD [address] [facility] 110 [place] [address] PCP - Medical [place] Commercial 10/22/18 04/23/99 Emerald Sanchez MD [address] [facility] 110 [place] [address] PCP - General Family Medicine 08/30/22 documented as of this encounter
--- OUTSIDE RECORDS SUMMARY | 2025-01-09 12:14 | XMS_ITS | Encounter Summary ---
Author Organization [facility] Address [address] [facility] [place] [address] Care Team Providers Care Director Of Family Service Center Name Role Phone Emerald Sanchez MD Unavailable Emerald Sanchez MD Primary Care Provider [phone] Encounter Details Date Type Department Care Team (Late st Contact Info) Description 12/19/2023 Abstract [facility] [place] [facility] [address] [facility] 110 [place] [address] Emerald Sanchez MD [address] [place] [address] [place] [address] Social History Tobacco Use Types Packs/Day Years [...] often do you attend chur ch or christianity services? Never 04/18/2023 Do you belong to [...] and heating? Not hard at all 04/18/2023 [facility] of Occupat ional Health - [...] [facility] [address] [place] [address] 01/15/2025 4:00 PM EDT Clinical Support [facility] [address] [place] [address] Milton Duvall, DPM FACFAS 368 [place] [address] 02/28/2025 9:00 AM EST Office Visit [facility] [address] [facility] 310 [place] [address] Jatin Cabrera MD [address] [place] [address] [phone] 03/18/2025 9:00 AM EST Office Visit [facility] 112 [facility] 110 [place] [address] Emerald Sanchez MD [address] [facility] 110 [place] [address] documented as of this encounter Goals Goal [...] documented as of this encounter Care Teams Director Of Family Service Center Relationship Specialty Start Date End Date Emerald Sanchez MD [address] [facility] 110 [place] [address] PCP - Medical [place] Commercial 10/22/18 04/23/99 Emerald Sanchez MD [address] [place] [address] [place] [address] PCP - General Family Medicine 08/30/22 documented as of this encounter
--- OUTSIDE RECORDS SUMMARY | 2025-01-09 12:14 | XMS_ITS | Encounter Summary ---
Author Organization [facility] Address [address] [place] [address] Care Team Providers Care Hairspring Adjuster Name Role Phone Emerald Sanchez MD Primary Care Provider [phone] Deena Osorio APRN Unavailable [phone] Darwin Starr DO Unavailable [phone] Source Comments In the event this information is protected by the Federal Confidentiality of Alcohol and Drug AbusePatient Records regulations: The Federal rules restrict any use of the information to criminally investigate or prosecute any alcohol or drug abuse patient.[facility] Encounter Details Date Type Department Care Team (Late st Contact Info) Description 09/14/2022 Patient Msg Gastroenterology [facility] 107 [place] [address] Provider, Ccf EGG Test Instructions Social History [...] N ot on file 05/27/2022 Data from: https://www.neighborhoodatlas.medicine.[facility].edu/. Last address used for calculation [address] [...] documented as of this encounter Care Teams Hairspring Adjuster Relationship Specialty Start Date End Date Emerald Sanchez MD 112 [facility] 110 [place] [address] PCP - General Family Medicine 03/27/19 Deena Osorio, RESOURCE ANALYST 112 [facility] 110 [place] [address] Referring Family Medicine 04/03/24 Darwin Starr DO [address] [place] [address] Dr [place], [place] [address] Referring Deputy Sheriff Civil Division 07/02/24 documented as of this encounter
--- OUTSIDE RECORDS SUMMARY | 2025-01-09 12:14 | XMS_ITS | Encounter Summary ---
Author Organization [facility] Address [address] [place] [address] Care Team Providers Care Insulator Tester Name Role Phone Emerald Sanchez MD Unavailable Emerald Sanchez MD Primary Care Provider [phone] Encounter Details Date Type Department Care Team (Late st Contact Info) Description 12/30/2024 Bamboo flowsheet [facility] [address] [place] [address] Milton Duvall, DPM FACFAS [address] [place] [address] Social History Tobacco Use Types Packs/Day Years [...] How often do you attend faith or tenriism serv ices? Never 05/09/2024 Do [...] [facility] [address] [place] [address] 01/15/2025 4:00 PM EDT Clinical Support [facility] [address] [facility] [address] Milton Duvall, DPM FACFAS 368 [facility] [place] [address] 02/28/2025 9:00 AM EST Office Visit [facility] [facility] [address] [facility] 310 [place] [address] Jatin Cabrera MD 8744 [facility] [address] [address] 03/18/2025 9:00 AM EST Office Visit [facility] [place] [facility] [address] [facility] 110 [place] [address] Emerald Sanchez MD [address] [facility] 110 [place] [address] documented as of this encounter Goals Goal [...] documented as of this encounter Care Teams Insulator Tester Relationship Specialty Start Date End Date Emerald Sanchez MD [address] [facility] 110 [place] [address] PCP - Medical [place] Commercial 10/22/18 04/23/99 Emerald Sanchez MD [address] [facility] 110 [place] [address] PCP - General Family Medicine 08/30/22 documented as of this encounter
--- OUTSIDE RECORDS SUMMARY | 2025-01-09 12:14 | XMS_ITS | Encounter Summary ---
Author Organization [facility] Address [address] [facility] [place] [address] Care Team Providers Care Composition Teacher Name Role Phone Emerald Sanchez MD Unavailable Emerald Sanchez MD Primary Care Provider [phone] Encounter Details Date Type Department Care Team [...] often do you attend [facility] or baptism services? Never 04/18/2023 Do you belong to [...] Ancillary Procedure [facility] 28[address] [facility] [place] [address] 01/15/2025 4:00 PM EDT Clinical Support [facility] 368 [place] [address] Milton Duvall, DPM FACFAS 368 [place] [address] 02/28/2025 9:00 AM EST Office Visit [facility] [address] [facility] 310 [place] [address] Jatin Cabrera MD 2944 [facility] [address] [address] 03/18/2025 9:00 AM EST Office Visit [facility] [place] [facility] [address] [facility] 110 [place] [address] Emerald Sanchez MD [address] [facility] 110 [place], [place] [address] documented as of this encounter Goals Goal [...] QTC Calculation(Bazett) : 459 ms Calculated P Blanchard : 62 degrees Calculated R Blanchard : 55 degrees Calculated T Blanchard : 38 degrees NORMAL SINUS RHYTHM NORMAL ECG Confirmed by MD BAH HEBA ([id number]) on 12/30/2023 6:45:12 PM NAME : BELGICA BARNETT PID : [id number] : 1990 Gender : Female Race : Other ORD : [id number] Procedure Date : Dec 19 2023 13:51:58 Edit Date : Dec 30 2023 18:45:15 Diagnosis: NORMAL SINUS RHYTHM NORMAL ECG Confirmed by MD BHA HEBA ([id number]) on 12/30/2023 6:45:12 PM Test Reason : [...] QTC Calculation(Bazett) : 459 ms Calculated P Blanchard : 62 degrees Calculated R Blanchard : 55 degrees Calculated T Blanchard : 38 degrees NORMAL SINUS RHYTHM NORMAL ECG Confirmed by MD BAH HEBA ([id number]) on 12/30/2023 6:45:12 PM NAME : BELGICA BARNETT PID : [id number] : 1990 Gender : Female Race : Other ORD : [id number] Procedure Date : Dec 19 2023 13:51:58 Edit Date : Dec 30 2023 18:45:15 Diagnosis: NORMAL SINUS RHYTHM NORMAL ECG Confirmed by MD BAH HEBA ([id number]) on 12/30/2023 6:45:12 PM Test Reason : Location : [address] [place] [address] Overread By : MD BAH HEBA Edited By : MD BAH HEBA Referred By : , Acquired by : CHELSEY JOSEPH us Generic External Data Provider ECG ORDERABLES F inal Result [facility] documented in this encounter Visit Diagnoses Not on filedocumented in this encounter Additional Health Concerns Active Problems Noted Date Diagnosed Date Patient on antidepressant monitoring plan 2023 Baseline PHQ-9 05/08/2023 documented as of this encounter Care Teams Composition Teacher Relationship Specialty Start Date End Date Emerald Sanchez MD [address] [address] PCP - Medical [place] Commercial 10/22/18 04/23/99 Emerald Sanchez MD [address] [address] PCP - General Family Medicine 08/30/22 documented as of this encounter
--- OUTSIDE RECORDS SUMMARY | 2025-01-09 12:14 | XMS_ITS | Encounter Summary ---
Author Organization [facility] Address [address] [facility] [place] [address] Care Team Providers Care Conveyor Weigher Operator Name Role Phone Emerald Sanchez MD Unavailable Emerald Sanchez MD Primary Care Provider [phone] Reason for Referral * Medications - Denied Specialty Diagnoses / Procedures Referred By Contmusa t Referred To Contact Diagnoses Obesity (BMI 35.0-39.9 without comorbidity) Emerald Sanchez MD 112 [facility] 110 [place] [address] Phone: tel: fax: Referral ID Status Reason Start Date Expiration Date Visits Re quested Visits Authorized [id number] Denied 1 1 Encounter Details Date Type Department Care Team (Late st Contact Info) Description 01/07/2025 Telephone [facility] [place] [facility] 112 [facility] 110 [place] [address] Emerald Sanchez MD 112 [facility] 110 [place] [address] Social History Tobacco Use Types Packs/Day Years [...] week 05/09/2024 How often do you attend gnosticist or lutheran serv ices? Never 05/09/2024 Do [...] Recorded Patient Health Questionnaire-2 Score 4 01/06/2025 [facility] of Occupat ional Health - Occupational Stress [...] any time in the past 12 m [facility], were you homeless or living in a custodial (including now)? No 05/09/2024 Comments No Sex and Gender Information Value Date Recorded Sex Assigned at Not on file Legal Sex Female 7:29 PM EDT Gender Identity Not on file Sexual Orientation Not on file documented as of this encounter Miscellaneous Notes * Telephone Encounter - Monet Motley MA - 01/08/2025 1:38 PM EDT Orders placed * Telephone Encounter - BALDO STRONG - 01/07/2025 12:42 PM EDT Patient called and is asking if you could call in Something for weight lose. Is spoke about it yesterday. It will need to go to [facility] [place]. documented in this encounter Plan of Treatment Upcoming Encounters Date Type Department Care Team (Late st Contact Info) Description 01/14/2025 6:00 PM EDT Ancillary Procedure [facility] 2800 [facility] [place] [address] 01/15/2025 4:00 PM EDT Clinical Support [facility] 368 [place] [address] Milton Duvall, DPM FACFAS 368 [place] [address] 02/28/2025 9:00 AM EST Office Visit [facility] [address] [facility] 310 [place] [address] Jatin Cabrera MD 1546 [facility] [address] [address] 03/18/2025 9:00 AM EST Office Visit [facility] [place] 112 [facility] 110 [place] [address] Emerald Sanchez MD 112 [facility] 110 [place] [address] Scheduled Orders Name Type Priority Associated Diagnoses Orde r Schedule CBC and differential Lab Routine Well adult health check Type 2 diabetes mellitus without complication, without long-term current use of insulin (HCC) Expected: 01/08/2025 (Approximate), Expires: 01/08/2026 Lipid panel Lab Routine Well adult health check Screening for lipid disorders Expected: 01/08/2025 (Approximate), Expires: 01/08/2026 documented as of this encounter Goals Goal Patient Goal Type Associated Problems Recent Progress Patient-Stated? Author Help patient manage antidepressant medication Care Plan Patient on antidepressant monitoring plan No Emerald Sanchez MD Baseline PHQ-9 Care Plan Baseline PHQ-9 No Emerald Sanchez MD documented as of this encounter Visit Diagnoses Diagnosis Obesity (BMI 35.0-39.9 without comorbidity)- Primary Well adult health check Unspecified general medical examination Type 2 diabetes mellitus without complication, without long-term current use of insulin (HCC) Screening for lipid disorders documented in this encounter Additional Health Concerns Active Problems Noted Date Diagnosed Date Patient on antidepressant monitoring plan 2023 Baseline PHQ-9 05/08/2023 Assessment Noted Time PHQ-9 Depression Total Score: 13 025 10:55 AM EDT documented as of this encounter Care Teams Conveyor Weigher Operator Relationship Specialty Start Date End Date Emerald Sanchez MD 112 [facility] 110 [place] [address] PCP - Medical [place] Commercial 10/22/18 04/23/99 Emerald Sanchez MD 112 [facility] 110 [place] [address] PCP - General Family Medicine 08/30/22 documented as of this encounter
--- OUTSIDE RECORDS SUMMARY | 2025-01-09 12:14 | XMS_ITS | Encounter Summary ---
Author Organization [facility] Address [address] [place] [address] Care Team Providers Care Upsetter Helper Name Role Phone Emerald Sanchez MD Primary Care Provider [phone] Deena Osorio SUPERVISOR WOOD CREW Unavailable [phone] Darwin Starr DO Unavailable [phone] Source Comments In the event this information is protected by the Federal Confidentiality of Alcohol and Drug AbusePatient Records regulations: The Federal rules restrict any use of the information to criminally investigate or prosecute any alcohol or drug abuse patient.[facility] Encounter Details Date Type Department Care Team (Late st Contact Info) Description 07/04/2022 Get Medical Advice Gastroenterology [address] [place] [address] Provider, Ccf Question regarding SURGICAL PATHOLOGY Social [...] N ot on file 05/27/2022 Data from: https://www.neighborhoodatlas.[facility], [place]/. Last address used for calculation [address] [...] documented as of this encounter Care Teams Upsetter Helper Relationship Specialty Start Date End Date Emerald Sanchez MD [address] [facility] 110 [place] [address] PCP - General Family Medicine 03/27/19 Deena Osorio APRN [address] [facility] 110 [place] [address] Referring Family Medicine 04/03/24 Darwin Starr DO [address] [place] [address] [place] [address] Referring Generation Technician 07/02/24 documented as of this encounter
--- OUTSIDE RECORDS SUMMARY | 2025-01-09 12:14 | XMS_ITS | Encounter Summary ---
Author Organization [facility] Address [address] [place] [address] Care Team Providers Care Cut Order Hand Name Role Phone Emerald Sanchez MD Primary Care Provider [phone] Deena Osorio APRN Unavailable [phone] Darwin Starr DO Unavailable [phone] Source Comments In the event this information is protected by the Federal Confidentiality of Alcohol and Drug AbusePatient Records regulations: The Federal rules restrict any use of the information to criminally investigate or prosecute any alcohol or drug abuse patient.[facility] Encounter Details Date Type Department Care Team (Latest Contact Info) Description 12/30/2024 Travel Social History Tobacco Use Types Packs/Day [...] is lower risk 4 10/17/2022 Data from: https://www.neighborhoodatlas.medicine.[facility].edu/. Last address used for calculation [address] [...] on filedocumented in this encounter Care Teams Cut Order Hand Relationship Specialty Start Date End Date Emerald Sanchez MD [address] [facility] 110 [place], [place] [address] PCP - General Family Medicine 03/27/19 Deena Osorio APRN [address] [facility] 110 [place] [address] Referring Family Medicine 04/03/24 Darwin Starr DO [address] [place], [place] [address]Kay[place] [address] Referring Supervisor Research Kennel 07/02/24 documented as of this encounter
--- OUTSIDE RECORDS SUMMARY | 2025-01-09 12:14 | XMS_ITS | Encounter Summary ---
Author Organization [facility] Address [address] [place] [address] Care Team Providers Care Sock Liner Name Role Phone Emerald Sanchez MD Primary Care Provider [phone] Deena Osorio SCRAP DROP ENGINEER Unavailable [phone] Darwin Starr DO Unavailable [phone] Source Comments In the event this information is protected by the Federal Confidentiality of Alcohol and Drug AbusePatient Records regulations: The Federal rules restrict any use of the information to criminally investigate or prosecute any alcohol or drug abuse patient.[facility] Encounter Details Date Type Department Care Team (Late st Contact Info) Description 01/09/2025 Get Medical Advice Colorectal Surgery [address] [place], [place] [phone] Lesly Barnett APRN.CANCER RESEARCHER [address] [address] [place], [place] [address] Follow up Social History Tobacco Use Types Packs/Day Years [...] is lower risk 4 10/17/2022 Data from: https://www.neighborhoodatlas.medicine.[facility]/. Last address used for calculation 5[address] [...] on filedocumented in this encounter Care Teams Sock Liner Relationship Specialty Start Date End Date Emerald Sanchez MD [address] [facility] 110 [place] [address] PCP - General Family Medicine 03/27/19 Deena Osorio APRN [address] [facility] 110 [place] [address] Referring Family Medicine 04/03/24 Darwin Starr DO [address] [place] [address] Dr [place], [place] [address] Referring Electric Blanket Wirer 07/02/24 documented as of this encounter
--- OUTSIDE RECORDS SUMMARY | 2025-01-09 12:14 | XMS_ITS | Encounter Summary ---
Author Organization [facility] Address [address] [facility] [place] [address] Care Team Providers Care Category Development Analyst Name Role Phone Emerald Sanchez MD Unavailable Emerald Sanchez MD Primary Care Provider [phone] Encounter Details Date Type Department Care Team (Late st Contact Info) Description 04/10/2024 Abstract [facility] [address] [facility] 110 [place] [phone] Emerald Sanchez MD [address] [place] [address] [place] [address] Social History Tobacco Use Types Packs/Day Years [...] Not hard at all 04/18/2023 [facility] Occupat ional Health - [...] [facility] [address] [place] [phone] 01/15/2025 4:00 PM EDT Clinical Support [facility] [address] [place] [phone] Milton Duvall, DPM [facility] [address] [place] [address] 02/28/2025 9:00 AM EST Office Visit [facility] [address] [facility] 310 [place] [address] Jatin Cabrera MD [address] [facility] [address] [id number] 03/18/2025 9:00 AM EST Office [facility] [address] [facility] 110 [place] [phone] Emerald Sanchez MD [address] [facility] 110 [place] [address] documented as of this encounter Goals Goal [...] documented as of this encounter Care Teams Category Development Analyst Relationship Specialty Start Date End Date Emerald Sanchez MD [address] [facility] 110 [place] [address] PCP - Medical [place] [employer] 10/22/18 04/23/99 Emerald Sanchez MD [address] [place] [address] [place] [address] PCP - General Family Medicine 08/30/22 documented as of this encounter
--- OUTSIDE RECORDS SUMMARY | 2025-01-09 12:14 | XMS_ITS ---
Author Organization [facility] Address [address] [place] [address] Care Team Providers Care Barrel Drainer Name Role Phone Emerald Sanchez MD Unavailable Emerald Sanchez MD Primary Care Provider [phone] Emergency Department Transitional Care Management (TCM) Status:Closed (Closed) Start date:01/06/2025 Enrollment reason:Identified using hospital discharge data End date:01/07/2025 Close reason:Not eligible Overview Discharged from [facility] ER on 01/06. Please contact within 2 days of discharge for ER VANESSA and schedule a follow-up appointment if needed. <January 07, 2025, 11:17 - Annabelle Ware RN> pt seen in office after er visit on 01/06, closing encounter Continued Care and Services Coordination
--- OUTSIDE RECORDS SUMMARY | 2025-01-09 12:15 | XMS_ITS | Clinical Summary ---
Author Organization Field Agent tem Address [facility] [id number] [address] [place] [address] Care Team Providers Care Field Representative Name Role Phone Unavailable Primary Care Provider [...]
--- OUTSIDE RECORDS SUMMARY | 2025-01-09 12:15 | XMS_ITS | Encounter Summary ---
Author Organization [facility] Address [address] [place] [address] Care Team Providers Care Director Of Retail Analytics Name Role Phone Emerald Sanchez MD Unavailable Emerald Sanchez MD Primary Care Provider [phone] Encounter Details Date Type Department Care Team (Late st Contact Info) Description 12/20/2024 Results Follow-Up [facility] 112 [facility] 110 [place] [address] Sandy Hammond, PA [address] [facility] 110 [place] [address] MLR HEMOGLOBIN A1C, CCF CMP (CMP) (FOR REMOTE [facility] USE), TSH W/REFLEX T4, Additional followed-up results: 8 Social History Tobacco Use Types Packs/Day Years [...] How often do you attend tenriism or shinto serv ices? Never 05/09/2024 Do you belong [...] Recorded Patient Health Questionnaire-2 Score 4 10/08/2024 [facility] of Occupat ional Health - Occupational Stress [...] time in the past 12 m [facility], were you homeless or living [...] Procedure [facility] [address] [place] [phone] 01/15/2025 4:00 PM EDT Clinical Support [facility] [address] [place] [phone] Milton Duvall, DPM FACFAS [address] [place] [address] 02/28/2025 9:00 AM EST Office Visit [facility] [address] [facility] [address] [place] [phone] Jatin Cabrera MD [address] [facility] [address], [place] [id number] 03/18/2025 9:00 AM EST Office Visit [facility] [place] [facility] [address] [facility] [address] [place] [phone] Emerald Sanchez MD [address] [place] [address] [place] [address] documented as of this encounter Goals Goal [...] of this encounter Care Teams Director Of Retail Analytics Relationship Specialty Start Date End Date Emerald Sanchez MD [address] [place] [address] [place] [address] PCP - Medical [place] [employer] 10/22/18 04/23/99 Emerald Sanchez MD [address] [place] [address] [place] [address] PCP - General Family Medicine 08/30/22 documented as of this encounter
--- OUTSIDE RECORDS SUMMARY | 2025-01-09 12:15 | XMS_ITS | Encounter Summary ---
Author Organization [facility] Address [address] [facility] [place] [address] Care Team Providers Care Nuisance Wildlife Trapper Name Role Phone Emerald Sanchez MD Unavailable Emerald Sanchez MD Primary Care Provider [phone] Encounter Details Date Type Department Care Team (Latest Contact Info) Description 12/26/2024 Travel Social History Tobacco Use Types Packs/Day [...] How often do you attend pentecostal or gnosticism serv ices? Never 05/09/2024 Do you belong [...] Recorded Patient Health Questionnaire-2 Score 4 10/08/2024 [facility] of Occupat ional Health [...] [facility] [address] [place] [place] [phone] 01/15/2025 4:00 PM EDT Clinical Support [facility] [address] [facility] [place] [phone] Milton Duvall, DPM FACFAS [address] [facility] [place] [address] 02/28/2025 9:00 AM EST Office Visit [facility] [address] [place] [address] [place] [address] Jatin Cabrera MD [address] [address] 03/18/2025 9:00 AM EST Office Visit [facility] [place] [facility] [address] [facility] 110 [place] [phone] Emerald Sanchez MD 112 [facility] 110 [place] [address] documented as of this encounter Goals Goal Patient Goal Type Associated Problems Recent Progress Patient-Stated? Author Help patient manage antidepressant medication Care Plan Patient on antidepressant monitoring plan No Emeradl Sanchez MD Baseline PHQ-9 Care Plan Baseline PHQ-9 No Emerald Sanchez MD documented as of this encounter Visit Diagnoses Not on filedocumented in this encounter Additional Health Concerns Active Problems Noted Date Diagnosed Date Patient on antidepressant monitoring plan 2023 Baseline PHQ-9 05/08/2023 Assessment Noted Time PHQ-9 Depression Total Score: 18 025 11:34 AM EDT documented as of this encounter Care Teams Nuisance Wildlife Trapper Relationship Specialty Start Date End Date Emerald Sanchez MD 112 [facility] 110 [place] [address] PCP - Medical [place] [employer] 10/22/18 04/23/99 Emerald Sanchez MD 112 [facility] 110 [place] [address] PCP - General Family Medicine 08/30/22 documented as of this encounter
--- OUTSIDE RECORDS SUMMARY | 2025-01-09 12:15 | XMS_ITS | Encounter Summary ---
Author Organization [facility] Address [address] [place] [facility] [place] [address] Care Team Providers Care Surgical Processor Name Role Phone Emerald Sanchez MD Unavailable Emerald Sanchez MD Primary Care Provider Encounter Details Date Type Department Care Team (Latest Contact Info) Description 12/29/2024 Travel Social History Tobacco Use Types Packs/Day [...] How often do you attend jainism or gnosticism serv ices? Never 05/09/2024 Do [...] Recorded Patient Health Questionnaire-2 Score 4 10/08/2024 [facility] of Occupat ional Health [...] time in the past 12 m [facility], were you homeless or living [...] [facility] [address] [place] [phone] 01/15/2025 4:00 PM EDT Clinical Support [facility] [address] [facility] [place] [phone] Milton Duvall, DPM FACFAS [address] [facility] [place] [address] 02/28/2025 9:00 AM EST Office Visit [facility] [address] [place] [address] [place] [address] Jatin Cabrera MD [address] [facility] [address] [address] 03/18/2025 9:00 AM EST Office Visit [facility] [place] [facility] [address] [facility] 110 [place] [phone] Emerald Sanchez MD 112 [facility] 110 [place] [address] documented as of this encounter Goals Goal [...] documented as of this encounter Care Teams Surgical Processor Relationship Specialty Start Date End Date Emerald Sanchez MD 112 [facility] 110 [place] [address] PCP - Medical [place] [employer] 10/22/18 04/23/99 Emerald Sanchez MD 112 [facility] [address] [place] [address] PCP - General Family Medicine 08/30/22 documented as of this encounter
--- OUTSIDE RECORDS SUMMARY | 2025-01-09 12:18 | XMS_ITS | CCD ---
Author Organization [facility] CliniSymn Care Team Providers Care Director Digital Advertising Name Role Phone OZIEL MONTEIRO Referring Unavailable GIOVANI HAGEN Primary Care Unavailable MD Erwin Hylton Attending Provider [phone] MD Giovani Hagen Primary Care Provider Giovani [...] DHALIWAL Admitting Unavailable Jed, Jackson Consulting Unavailable YESSY ., AYLEEN Consulting Unavailable REINECK, DR RONALD [...] Provider MD Giovani Hagen Primary Care Provider [phone] Giovani Hagen MD Primary Care Provider [phone] MARY ANGEL Admitting Unavailable BLOOD, MARY Culver Attending Unavailable JACKSON MONTENEGRO Consulting Unavailable SONIYA PATEL Referring [facility] Unavailable MAKENNA AMAYA Consulting Unavailable Giovani Hagen MD Primary Care Provider [phone] Giovani Hagen MD Unavailable Giovani Hagen MD Primary Care Provider Deena Lyn CNP Unavailable [phone] SOLO MORA Referring Unavailable HIEU, GIOVANI ENRIQUE Primary Care Unavailable Darwin Starr DO R Unavailable Giovani Hagen MD Primary Care Provider Dank Green MD Admit Provider Dank Green MD Attending Provider [phone] Dank Green Admitting Unavailab Rahul Ugarte Attending Unavailable [place]Giovani Primary Care Unavailable JEREMIAH HARPERINE Referring Unavailable HIEU, [facility] Primary Care Unavailable HIEU, [facility] Primary Care Unavailable ILIANA MERCADO Referring Unavailable Hieu , [facility] Primary Care Provider Deena Lyn APRN Unavailable HIEU, [facility] Primary Care Unavailable KOCHAR, ARSHNEEL Referring Unavailable KOCHAR, ARSHNEEL Referring Unavailable HIEU, [facility] Primary Care Unavailable HIEU, [facility] Primary Care Unavailable ILIANA MERCADO Referring Unavailable ILIANA MERCADO Referring Unavailable HIEU, [facility] Primary Care Unavailable ILIANA MERCADO Referring Unavailable OBED BHATT Attending Unavailable HIEU, [facility] Primary Care Unavailable HIEU, [facility] Primary Care Unavailable ILIANA MERCADO Referring Unavailable KOCHAR, ARSHNEEL Attending Unavailable KOCHAR, ARSHNEEL Referring Unavailable HIEU, [facility] Primary Care Unavailable DAKHIL, NOMA Referring Unavailable MARIO HARPER Attending Unavailable HIEU, GIOVANI [facility] Primary Care Unavailable LYDIA ROCK Attending Unavailable MEREDITH, MARIO Ref[facility] Primary Care Unavailable MARIO HARPER Attending Unavailable [facility] Primary Care Unavailable JEREMIAH HARPERINE Referring Unavailable HIEU, [facility] Primary Care Unavailable LYDIA KELLEY Attending Unavailab le HIEU, [facility] Primary Care Unavailable ILIANA MERCADO Attending Unavailable HIEU, [facility] Primary Care Unavailable LILY BOUDREAUXI S Referring Unavailable EMMA YING Attending Unavailable HIEU, [facility] Primary Care Unavailable HIEU, [facility] Primary Care Unavailable JAVY BOUDREAUX S Attending Unavailable DARWIN STARR Referring Unavailable HIEU, [facility] Primary Care Unavailable JAVY BOUDREAUX Referring Unavailable Iliana Cramer Attending Unavailable Madhuri MISHRA Attending Unavailable BelaIliana mcclellan Attending Unavailable DOLCE, MILTON Roth Attending Unavailable DOLCE, MILTON Roth Referring Unavailable YESSYAYLEEN BOLANOS Attending Unavailable HIEU, GIOVANI M Attending Unavailable PRATEEK PEDRAZA Attending Unavailable MATTYDARWIN Attending Unavailable DOLCE, MILTON Roth Attending Unavailable [...] Attending Unavailable RIKI, DEENA Bob Attending Unavailable GRAZIANSHANNON Fitzgerald Attending Unavailab le HEMMER, SANDY Bob Attending Unavailable DOLCE, MILTON Roth Attending Unavailable DOLBRAN, MILTON Roth Referring Unavailable HIEU, RUGBETY M Attending Unavailable CABRERAJATIN MYERS Attending Unavailable DOLCE, MILTON Roth Attending Unavailable HIEU, RUGEN M Attending Unavailable HIEU, RUGEN M Attending Unavailable MATTYDARWIN TRINH Attending Unavailable ZHEN BURGESS Attending Unavailable HIEU, [...] M Referring Unavailable MATTYDARWIN Drew Attending Unavailable ZHEN BURGESS [...] sources) Iodine Drug Allergy 04-11-20 Swelling, Itching [facility] Iohexol (2 sources) Iohexol Drug Allergy 04-12-20 Itching [facility] (20 sources) Iodine; Translations: [IODINE] Drug Allergy 04-11-20 Swelling, Itching [facility] (20 sources) Iohexol; Translations: [IOHEXOL] Drug Allergy 04-12-20 Itching [facility] (1 source) Cat Propensity to adverse reactions anaphylaxis [facility] Ryan Other (16 sources) tree nut, unspecified; Translations: [TREE NUTS] Propensity to adverse reactions 07-11-19 anaphylaxis [facility] Ryan Other (1 source) peanut allergenic extract Drug Allergy [facility] Repository (1 source) Cat/Feline Product Derivatives Drug allergy (disorder) 01-08-20 13 [facility] Repository (20 sources) Cat Hair Extract Allergy to substance 12-01-19 Anaphylaxis [facility] (20 sources) Iodinated Contrast Media; Translations: [IODINATED CONTRAST MEDIA] Drug Allergy 04-12-20 Hives, Anaphylaxis, Itching [facility] (20 sources) Prednisone & Diphenhydramine Drug Allergy 10-03-19 [facility] (16 sources) Cat Dander; Translations: [cat dander] Drug Allergy 05-03-19 Anaphylaxis [facility] (1 source) tree nut, unspecified Drug allergy (disorder) 05-03-19 [facility] Repository (1 source) No Known Medication Allergies; Translations: [No Known Medication Allergies] Propensity to adverse reactions (disorder) [facility] Repository Medications Current Medications Medication Drug [...] every four hours as needed HYDROcodone-acetami nophen (Lostant) 5-325 MG tablet Take 1 tablet by mouth every 4 (four) hours if needed 09/06/2024 09/17/2024 Discontinued (Therapy completed) Start: 05-09-2024 End: 05-14-2024 take 1 tablet by mouth every six hours for pain HYDROcodone-acetaminophen (Lostant) 5-325 MG tablet Indications: Cervical radiculopathy due to degenerative joint disease of spine Take 1 tablet by mouth every 6 (six) hours if needed for severe pain for up to 5 days 20 tablet 05/09/2024 05/14/2024 Active Start: 04-16-2024 End: 04-21-2024 take 1 tablet by mouth every six hours for pain HYDROcodone-acetaminophen (Lostant) 5-325 MG tablet Indications: Sprain of anterior talofibular ligament of right ankle, subsequent encounter Take 1 tablet by mouth every 6 (six) hours if needed for severe pain for up to 5 days 20 tablet 04/16/2024 04/21/2024 [id number] 200 actuat albuterol 0.09 mg/actuat metered dose [...] Start: 08-16-2024 take 1 capsule by mo [facility] once daily in the morning Dextroamphetamine-Amphetamine 10 [...] capsules by mouth at bedtime Bis Subcit Noe-Fbozb-Xhkkpdco (PYLERA) 140-125-125 mg per capsule Take 3 [...] in partial remission, most recent episode manic ([facility]/HCC) TAKE 1 CAPSULE BY MOUTH EVERY [...] (5 sources) Cephalosporin Antibacterial Start: 4 End: take 1 tablet by mouth in [...] UTI, # 20 cap(s), Refills(s) 2, Pharmacy: [facility]/pharmacy #[id number], 158, cm, 12/28/23 15:24:00 EDT, Height/Length [...] days., # 50 cap(s), Refills(s) 0, Pharmacy: [facility]/pharmacy #[id number], 158, cm, 06/29/22 8:19:00 EST, Height/Length [...] 2024 11:35am clonazePAM 0.5 mg oral tablet (8 sources) Benzodiazepine Start: 04-02-2024 clonazePAM (KL ONOPIN) [...] completed) cyclobenzaprine hydrochloride 5 mg oral tablet (4 sources) Muscle Relaxant Start: 12-30-2024 cyclobenzaprin e [...] 11/27/2024 Active dapagliflozin 10 mg oral tablet (13 sources) Sodium-Glucose Cotransporter 2 Inhibitor Start: 12-16-2024 End: 12-16-2025 take 1 tablet by mouth once daily dapagliflozin (Farxiga) 10 MG Indications: Weight gain , Borderline diabetes Take 1 tablet (10 mg) by mouth Daily 30 tablet 11 12/16/2024 12/16/2025 Active diclofenac sodium 75 mg delayed release [...] take 1 puff(s) by inhalation once daily Qyifujvtmet-Bofdxedjc-Psgnqn (Trelegy Ellipta) 100-62.5-25 MCG/ACT aerosol powder Indications: Moderate persistent asthmatic bronchitis with acute exacerbation (HCC) INHALE 1 PUFF DAILY 60 each 2 09/03/2024 Active Start: 04-16-2024 End: 06-25-2024 take 1 puff(s) by inhalation once daily Yliimfnnqjb-Kbbbmgsub-Wjggsu 100-62.5-25 MCG/ACT aerosol powder Indications: Moderate persistent asthmatic bronchitis with acute exacerbation (CMS/HCC) Inhale 1 puff Daily 1 each 04/16/2024 06/25/2024 Discontinued Start: 05-24-2022 take 1 puff(s) by inhalation once daily Nyecbfxdqek-Ybrhefttz-Ddihgu 100-62.5-25 MCG/ACT aerosol powder INHALE 1 PUFF INTO THE LUNGS EVERY DAY FOR 30 DAYS 05/24/2022 Active Start: 05-24-2022 End: 11-02-2022 TRELEGY ELLIPTA 100-62.5-25 mcg inhalation powder 05/24/2022 11/02/2022 Discontinued fluticasone/umeclidin/vilant er (TRELEGY ELLIPTA INHALATION) (16 sources) fluticasone/umec lidin/vilanter (TRELEGY ELLIPTA INHALATION) Inhale [...] 04/01/2025 Active OLANZapine 2.5 mg oral tablet (2 sources) Atypical Antipsychotic Start: 12-30-2024 OLANZapine (ZYPREXA) 2.5 mg tablet 12/30/2024 Active OXcarbazepine 300 mg oral tablet (20 sources) Anti-epileptic Agent Start: 10-10-2024 End: 12-26-2025 OXcarbazepine (TRILEPTAL) 300 mg tablet Take 300 mg by mouth. 10/10/2024 12/26/2025 Active Start: 10-10-2024 End: 11-16-2024 take [...] 04/30/2024 Active prazosin 2 mg oral capsule (20 sources) alpha-Adrenergic Taylor Start: 12-16-2024 End: 12-16-2024 [...] Active traMADol hydrochloride 50 mg oral tablet (11 sources) Opioid Agonist Start: 03-27-2024 End: 04-01-2024 [...] Discontinued EpiPen prn Activ e estrogens, conjugated (correction) 0.625 mg/ml vaginal cream (20 sources) Estrogen [...] Discontinued (Other) take 1 capsule by mo [facility] every twenty-four hours Vyvanse 50 [...] on above: TAKE 1 CAPSULE BY [facility] EVERY DAY IN THE MORNING FOR [...] 1 tablet by mouth every eight hours as needed ondansetron (ZOFRAN) 4 mg tablet Take 4 mg by mouth every 8 hours as needed for nausea/vomiting. 02/28/2023 Active Start: 08-31-2022 End: 08-31-2022 4 mg, INTRAVENOUS, [...] angina pectoris; Translations: [Atherosclerotic heart disease of [place] coronary artery without angina pectoris] Onset: 2 12-12-2022 Chronic Diabetes mellitus without complication (4 sources) Type 2 diabetes mellitus; Translations: [Type 2 diabetes mellitus without complications] Onset: 5 01-06-2025 Chronic Diabetes mellitus without complication (20 sources) [...] incontinence (female) (male)] Onset: 5 12-30-2024 Chronic Headache; including migraine (20 sources) Tension-type headache; [...] sources) Bilious vomiting; Translations: [Bilious vomiting] Episodic Nonspecific chest pain (4 sources) Chest pain; Translations: [Chest pain, unspecified] Onset: 5 01-06-2025 Episodic Nutritional deficiencies (20 sources) Vitamin D [...] 5 10-09-2024 Episodic Other connective tissue disease (8 sources) Spasm; Translations: [Other muscle spasm] Onset: [...] Translations: [Muscle spasm] Onset: 5 Episodic Other female genital disorders [...] (1 source) Vulvodynia, unspecified; Translations: [Vulvodynia] Onset: Chronic Other female genital disorders (1 source) [...] the digestive system] Episodic Other gastrointestinal disorders (15 sources) Chronic constipation; Translations: [Other constipation] Onset: [...] nutritional; endocrine; and metabolic disorders (20 sources) Nephrocalcinosis; Translations: [Other disorders of calcium metabolism] Onset: 5 12-12-2024 Chronic Other nutritional; endocrine; and metabolic disorders (13 sources) Obesity caused by energy imbalance; Translations: [Morbid (severe) obesity due to excess calories] Onset: 5 12-16-2024 Chronic Other nutritional; endocrine; and metabolic disorders (13 sources) Obese class II; Translations: [Obesity, class 2] Onset: 5 12-16-2024 Chronic Ovarian cyst (20 sources) Other ovarian cyst, [...] 3 Resolved: 3 12-26-2023 Episodic Substance-related disorders (1 source) Drug-induced psychosis 12-31-2024 [...] source) Surgical wound finding Onset: 5 12-31-2024 Past or Other Problems Problem Classification Problem [...] [Calculus of kidney] Onset: 3 06-29-2022 Episodic Cardiac dysrhythmias (20 sources) Palpitations; Translations: [...] 05-01-2019 Episodic Headache; including migraine (20 sources) Acute headache; Translations: [Acute nonintractable headache] Onset: 3 12-26-2023 Episodic Mood disorders (20 sources) Mood swings; Translations: [Emotional lability] Onset: 3 09-23-2022 Episodic Mood disorders (20 sources) Mood disorders Onset: 5 Resolved: 5 10-08-2024 Mycoses (20 sources) Dermatophytosis; Translations: [...] to d ocumentation in Social History. Syncope (5 sources) Syncope and collapse; Translations: [...] Urnls Dip Stick Auto w/o Microscopy POC 00995 2. Kidney stones (N20.0: Calculus of kidney) S/p R ESWL KUB 06/29/22 at [facility] - negative Metabolic workup 07/08/22 - slightly elevated Na (149), low output volume (1000 mL) KUB 11/16/23 - negative KUB 10/23/24 - negative for stones Reviewed KUB w/ patient. She denies recent flank pain, gross hematuria or stone passage. She would like to continue to monitor for new stones. -Cont stone prevention diet -F/U in 1 year w/ MAYA and KUB ([facility]) prior, or sooner if needed Ordered: Urnls Dip Stick Auto w/o Microscopy POC 79684 3. Stress incontinence (N39.3: Stress incontinence (female) [...] iodine (unknow) So (more content not included)... Normal [facility] Comment on above: Result Comment: Elec tronically Signed By: Iliana Cramer PA-C\.br\Date and Time Signed: 01/01/25 12:08 EDT Ambulatory Visit Summaryon 0 12-31-2024 Ambulatory Visit Summary Ambulatory Visit Summary MEREDITHLILITUYET Mcclellan :1990 Visit Date:12/31/2024 Ambulatory Visit Instructions Your Diagnosis Recurrent UTI Kidney stones Your Care Team Attending Physician - Iliana Cramer PA-C Primary Care Physician - GIOVANI HAGEN MD This Is Your Medications List [facility] Prescription (BUPROPION HYDROCHLORIDE ER (XL) 300 MG [...] Iliana Cramer PA-C Where: [facility] [address] [address]- Medications What How Much When Why Instructions [...] signed up for this yet, please contact zintin at [phone] to get signed up today. Language Information Language assistance services are available as needed. [facility] CNOVon 12-30-2024 CNOV Office Visit (WHICCP ) ORION HARPER ([id number]) 1990 F Date Time Provider Department 12/30/24 9:00 AM EMMA YING [facility] During your visit today, we recorded the following information about you: Blood pressure Weight 132/94 92.9 kg Emma Ying APRN.TEACHERS AIDE 12/30/2024 10:35 AM Signed [facility] [place] SECTION FOR CHRONIC PELVIC PAIN OUTPATIENT VISIT DATE 12/30/2024 OUTPATIENT VISIT TYPE CONSULT REFERRING PROVIDER: Javy Boudreaux MD PRIMARY CARE PROVIDER: Giovani Hagen MD, MD PRIMARY LIQUID FLAVOR COMPOUNDER: Consultation requested by referring provider above for an opinion regarding Orion Harper, and my final recommendations will be communicated back to the requesting physician by way of shared medical record or letter via US mail. Recording using [employer] software for draft documentation of the visit was discussed with the patient/authorized hvac sales representative; all questions welcomed and answered. Patient/authorized hvac sales representative agreed to proceed CHIEF COMPLAINT/REASON FOR [...] is not in contact with those individuals. 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 Cycles: Hysterectomy, Flow: n/a Intermenstrual spotting between periods: N/A Last pap: Pap Results: WNL 03/20/2024, HPV: History of abnormal pap: Yes Voltaire: (MA intake) Dyspareunia: both insertional and deep [...] Pain characteristics: (page 5) Pain started (month/year): 4592-4989 Inciting event: No obvious cause/do not know Onset: Gradual Duration of pain: 2-5 years Character of pain: Sharp, stabbing Wakes from sleep: No Radiation of pain: No Aggravating factors: Voltaire/Sexual contact Alleviating factors: Nothing makes it better Bowel habits: (page 12-13) Nause (more content not included)... Normal [facility] XR Foot - right 3 [facility] Result: Radiographs: Three views were taken today AP/MORT/LAT Ankle: No fractures or dislocations seen mild swelling circumferentially around the ankle. Small leanne fracture noted of the medial aspect of the medial malleolus. [facility] XR Foot - right 3 [facility] Study observation (narrative) [facility] MLR HEMOGLOBIN A1Con 025 Glucose [Mass/Vol] 114 mg/dL [facility] HbA1c (Bld) [Mass fraction] 5.6 % 4.5 - 6.2 % [facility] Comment on above: ADA RECOMMENDED LIMI T 4.0 - 6.0 ADA THERAPEUTIC TARGET < 7.0 ACTION SUGGESTED > 7.0 [facility]IN[facility] No Panel InformationOrdered By: Radiologist Radiology on 10-23-2024 [facility] Work Phone: No Panel Informationon 10-23 Radiology Study observation (narrative) [facility] XR ABDOMEN 1V SUPINEon 10-23 * * [...] No radiopaque markers are noted in the ekbnv-qp-pous. IMPRESSION: 0 Sitzmarks markers. The previously noted [...] any questions regarding this interpretation, please call [phone]. If you are unable to reach us at the number above, please feel free to contact [facility] at [phone]. [id number]^[email or web address]^SI ^ACN [facility] Radiology, Radiologist, - 10/23/2024 * * *Final [...] No radiopaque markers are noted in the wmcii-jq-akaq. IMPRESSION: 0 Sitzmarks markers. The previously noted [...] any questions regarding this interpretation, please call [phone]. If you are unable to reach us at the number above, please feel free to contact [facility] at [phone]. [id number]^[email or web address]^SI ^ACN [facility] XR ABDOMEN 1V SUPINE * * *Final [...] No radiopaque markers are noted in the csqej-bu-qjtc. IMPRESSION: 0 Sitzmarks markers. The previously noted [...] any questions regarding this interpretation, please call [phone]. If you are unable to reach us at the number above, please feel free to contact [facility] at [phone]. [id number] N Normal [facility] XR Abdomen Supine and Uprigh ton [...] any questions regarding this interpretation, please call [phone]. If you are unable to reach us at the number above, please feel free to contact [facility] at [phone]. DIVISION OF RADIOLOGY * * *Final Report* [...] No radiopaque markers are noted in the gfute-ma-zeks. DIVISION OF RADIOLOGY Provider, [facility] Shemar mccarthy [place] - 10/23/2024 * * *Final Report* * [...] No radiopaque markers are noted in the sngqi-hf-daqa. IMPRESSION IMPRESSION: 0 Sitzmarks markers. The previously noted Sitzmarks markers have all resolved. Transcribe Date/Time: Oct 23 2024 3:10P Dictated by: XAVIER NKOX MD This examination was interpreted and the report reviewed and electronically signed by: XAVIER KNOX MD on Oct 23 2024 3:15PM EST Thank you for allowing us to participate in the care of your patient. Should there be any questions regarding this interpretation, please call [phone]. If you are unable to reach us at the number above, please feel free to contact [facility] at [phone]. [facility] MRI HEAD/BRAIN WO/W CONTRon 10-21-[address] [address] Magnetic Resonance Report Signed Patient: ORION HARPER MR#: [id number] : 1990 Acct:[id number] Age/Sex: 34 / F ADM Date: 10/21/24 Loc: MRI Attending Dr: SHANNON DARDEN Ordering Physician: SHANNON DARDEN Date of Service: 10/21/24 Procedure(s): MR head/brain wo/w con Accession Number(s): [id number] cc: GIOVANI HAGEN ; SHANNON DARDEN [address] [address] Patient Name: ORION HARPER MRN: [facility]:[id number] date: 1990 Sex: F Assigned Patient Location: MRI Current Patient Location: MRI Accession/Order Number: [id number] Exam Date: 10/21/2024 11:17 Report Date: 10/21/2024 [...] Knight M.D. 10/21/2024 11:39 AM Dictation Location: [place] [address] Electronically authenticated by: [id number] Y Date: 10/21/2024 11:39 Dictated By: Sandy Knight M.D. Signed By: 10/21/24 1142 DD/ 1139 TD/TT: Policy Writer Typist: [facility] Radiology, Radiologist, MD - 10/21/2024 [place] [address] Magnetic Resonance Report Signed Patient: ORION HARPER MR#: [id number] : 1990 Acct:[id number] Age/Sex: 34 / F ADM Date: 10/21/24 Loc: MRI Attending Dr: SHANNON DARDEN Ordering Physician: SHANNON DARDEN Date of Service: 10/21/24 Procedure(s): MR head/brain wo/w con Accession Number(s): [id number] cc: GIOVANI HAGEN ; SHANNON DARDEN [place] [address] Patient Name: ORION HARPER MRN: [facility]:[id number] date: 1990 Sex: F Assigned Patient Location: MRI Current Patient Location: MRI Accession/Order Number: [id number] Exam Date: 10/21/2024 11:17 Report Date: 10/21/2024 [...] Knight M.D. 10/21/2024 11:39 AM Dictation Location: [place] [address] Electronically authenticated by: [id number] Y Date: 10/21/2024 11:39 Dictated By: Sandy Knight M.D. Signed By: 10/21/24 1142 DD/ 1139 TD/TT: Policy Writer Typist: [facility] [employer] Radiology Study observation (narrative) [facility] MRI HEAD/BRAIN WO/W CONTROrd ered By: Radiologist Radiology on 10-21-2024 [facility] [employer] Work Phone: XR ABDOMEN 1V SUPINEon 10-21 [...] Sitzmarks markers. IMPRESSION: Sitzmarks markers as described. Policy Writer Typist: [facility] Transcribe Date/Time: Oct 28 2024 9:07A Dictated by : ANNITA STILL MD This examination was interpreted and the report reviewed and electronically signed by: ANNITA STILL MD on Oct 28 2024 9:08AM EST [id number] N [facility] [id number] 10-11-2024 [id number] HNO ID: [id number] Author: LYDIA ROCK PT, DPT Service: ? Author Type: Physical Therapist Type: [id number] Filed: 10/11/2024 15:55 Note Text: [facility] Physical Therapy Plan of Care Certification Patient Name: Orion Harper : 1990 [facility] #: [id number] Date: 10/11/2024 To: Mario Harper APRN* From Therapist: Lydia Rock PT, DPT RE: Patient Certification/ Recertification Your review, approval and electronic signature are required in order to comply with Payor: MMO / Plan: MMO [facility] PPO / Product Type: PPO / regulations. [...] Planned: 4 Planned Treatment Interventions: Therapeutic exercise (51638), Neuromuscular re-education (34826), Manual therapy (31590), Therapeutic activities (57624), Self-long-term management (88916), Patient/Family/Caregi nataliia Education, Body Mechanics Training PLAN [...] reviewed the treatment plan for Orion Harper, [facility]# [id number] for the period of 10/11/24 -- 01/09/25, established on 10/11/2024. Signature certifies the need for therapy services. Normal [facility] CNTHERAPYon 10-11-2024 CNTHERAPY OT/PT/Speech Visit (PTCORD) ORION HARPER ([id number]) 1990 F Date Time Provider Department 10/11/24 2:45 PM LYDIA ROCK Date Time Provider Department [facility] 10/11/2024 2:45 PM [id number] ROCK [facility] Reason for Visit: PT Eval [747] Primary [...] Date Reviewed: 10/09/2024 Reviewed by: Mario Harper APRN.TEACHERS AIDE - Fully Assessed Prescriptions as of 10/11/2024 [...] 4.5 mg by mouth once daily. Normal [facility] CNOVon 10-09-2024 CNOV Office Visit ([facility] ) ORION HARPER ([id number]) 1990 F Date Time Provider Department 10/09/24 1:00 PM MARIO HARPER [facility] During your visit today, we [...] for internal providers or letter via the [employer] for external providers. Recording using [employer] software for draft documentation of the visit was discussed with the patient/authorized hvac sales representative; all questions welcomed and answered. Patient/authorized hvac sales representative agreed to proceed Chief Complaint: [...] pt complaine (more content not included)... Normal [facility] 10-01-2024 ISABELN Telephone (TANI) ORION HARPER ([id number]) 1990 F Date Time Provider Department 10/01/24 [...] Date Reviewed: 08/13/2024 Reviewed by: Kartik Espinosa, JW - Fully Assessed Primary Visit Diagnosis:Rectal pain [K62.89] Other Visit Diagnosis:Hemorrhoids , unspecified hemorrhoid type [K64.9] Order(s):CONSULT TO COLO-RECTAL SURGERY [] Order #: [id number]: 1 FUTURE Prescriptions as of 10/02/2024 - [...] Status:Closed by ILIANA MERCADO on 10/01/24 Normal [facility] Cholesterol [Mass/volume] in Serum or PlasmaOrdered By: Dank Green on 08-17-2024 Cholesterol [Mass/Vol] Cholesterol [Mass/volume] in Serum or Plasma 140-200 [facility] Comment on above: Chol less than 200 m g/dl low riskChol 201-239 mg/dl borderline riskChol 240 mg/dl and greater high risk Cholesterol in HDL [Mass/vol ume] in Serum or PlasmaOrdered By: Dank Green on 08-17-2024 Cholesterol in HDL [Mass/Vol] Serum or plasma high density lipoprotein (HDL) cholesterol measurement 23-92 [facility] Comment on above: HDL CHOL ATP-III CLA SSIFICATION Cardiovascular RiskHDL > or equal to 60 mg/dL LOWHDL < 40 mg/dL HIGH Cholesterol in LDL Calc [Mas s/Vol]Ordered By: Dank Green on 08-17-2024 Cholesterol in LDL [Mass/Vol] Cholesterol in LDL [Mass/volume] in Serum or Plasma by calculation High 0-100 [facility] Comment on above: LDL ATP III CLASSIFI CATIONLDL less than 100 mg/dL OptimalLDL 100-129 mg/dL Near or above optimalLDL 130-159 mg/dL Borderline highLDL 160-189 mg/dL HighLDL greater than 189 mg/dL Very high Cholesterol in VLDL Calc [Ma ss/Vol]Ordered By: Dank Green on 08-17-2024 Cholesterol in VLDL [Mass/Vol] Cholesterol in VLDL [Mass/volume] in Serum or Plasma by calculation [facility] Lipid Panelon 08-17-2024 Cholesterol [Mass/Vol] 183 mg/dL Normal 140-200 [facility] Comment on above: Result Comment: Chol less than 200 mg/dl low risk Chol 201-239 mg/dl borderline risk Chol 240 mg/dl and greater high risk Performed By: #### T SH3 wRFLX, LIPID, [id number] #### [facility] [address] Cholesterol in HDL [Mass/Vol] 59 mg/dL Normal 23-92 [facility] Comment on above: Result Comment: HDL CHOL ATP-III CLASSIFICATION Cardiovascular Risk HDL > or equal to 60 mg/dL LOW HDL < 40 mg/dL HIGH Performed By: #### T SH3 wRFLX, LIPID, [id number] #### [facility] [address] Cholesterol.total/Chol esterol in HDL [Mass ratio] 3.1 {ratio} Normal <5.0 [facility] Comment on above: Performed By: #### T SH3 wRFLX, LIPID, [id number] #### [facility] [address] LDL Cholesterol,Calculated 101 mg/dL High 0-100 [facility] Comment on above: Result Comment: LDL ATP III CLASSIFICATION LDL less than 100 mg/dL Optimal LDL 100-129 mg/dL Near or above optimal LDL 130-159 mg/dL Borderline high LDL 160-189 mg/dL High LDL greater than 189 mg/dL Very high Performed By: #### T SH3 wRFLX, LIPID, [id number] #### [facility] [address] [place] [id number] [place] Triglyceride w/Reflex 113 mg/dL Normal 0-149 [facility] Comment on above: Result Comment: TRIG ATP III CLASSIFICATION TRIG less than 150 mg/dL Normal TRIG 150-199 mg/dL Borderline high TRIG 200-500 mg/dL High TRIG greater than 500 mg/dL Very high Standard traceable to the Center for Disease Conrtrol and Prevention (CDC) test method. Performed By: #### T SH3 wRFLX, LIPID, [id number] #### [facility] [address] VLDL CHOLESTEROL 22 mg/dL Normal [facility] Comment on above: Performed By: #### T SH3 wRFLX, LIPID, [id number] #### [facility] [address] Serum or plasma total choles terol/high density lipoprotein (HDL) cholesterol mass ratOrdered By: Dank Green on 08-17-2024 Cholesterol.total/Chol esterol in HDL [Mass ratio] Serum or plasma total cholesterol/high density lipoprotein (HDL) cholesterol mass rat <5.0 [facility] Thyroid Stim Hormone w/Rflxo n 08-17-2024 Thyroid Stim Hormone w/Rflx 3.84 u[iU]/mL Normal 0.45-5.33 [facility] Comment on above: Performed By: #### T SH3 wRFLX, LIPID, [id number] #### [facility] [address] Thyrotropin [Units/volume] i n Serum or PlasmaOrdered By: Dank Green on 08-17-2024 TSH Qn Thyrotropin [Units/volume] in Serum or Plasma 0.45-5.33 [facility] Triglyceride [Mass/volume] i n Serum or PlasmaOrdered By: Dank Green on 08-17-2024 Triglyceride [Mass/Vol] Triglyceride [Mass/volume] in Serum or Plasma 0-149 [facility] Comment on above: TRIG ATP III CLASSIF ICATIONTRIG less than 150 mg/dL NormalTRIG 150-199 mg/dL Borderline highTRIG 200-500 mg/dL High TRIG greater than 500 mg/dL Very highStandard traceable to the Center for Disease Conrtrol and Prevention (CDC) test method. Vitamin D 25 Hydroxy Totalon 08-17-2024 Vitamin D 25 Hydroxy Total 13.6 ng/mL Low 30-100 [facility] Comment on above: Result Comment: MAYA MIN D STATUS 25(OH)VITAMIN D RANGE (ng/mL) Deficient <20 Insufficient 20 to <30 Sufficient 30 to 100 Reference: Cheyanne Valle, Elio MELVIN, et al. Evaluation,treatment, and prevention of vitamin D deficiency; an Endocrine Society clinical practice guideline. JCEM. 2010; 96(7):1911-30. PERFORMED BY: [facility] [address] [place] [address] PATHOLOGIST GOLF TECHNICIAN PADILLA MOLINA M.D. Performed By: #### T SH3 wRFLX, LIPID, [id number] #### [facility] [address] Vitamin D+Metabolites [Mass/ volume] in Serum or PlasmaOrdered By: Dank Green on 08-17-2024 Vitamin D+Metabolites [Mass/Vol] Vitamin D+Metabolites [Mass/volume] in Serum or Plasma Low 30-100 [facility] Comment on above: VITAMIN D STATUS 25( OH)VITAMIN D RANGE (ng/mL) Deficient <20 Insufficient 20 to <30Sufficient 30 to 100Reference: Cheyanne Valle, Elio MELVIN, et al. Evaluation,treatment, and prevention of vitamin D deficiency; an Endocrine Society clinical practice guideline. JCEM. 2010; 96(7):1911-30. CNOVon 08-13-2024 CNOV Office Visit ([facility] ) ORION HARPER ([id number]) 1990 F Date Time Provider Department 08/13/24 2:30 PM SOLO MORA During your visit today, we recorded the following information about you: Pulse Blood pressure Weight Height 92/minute 140/96 81.6 kg 1.6 m Solo Mora MD 08/26/2024 3:56 PM Signed [facility] [place] [facility] Department of Cardiovascular Medicine SECTION OF CARDIAC PACING and ELECTROPHYSIOLOGY OUTPATIENT VISIT DATE August 13, 2024 OUTPATIENT VISIT TYPE ESTABLISHED PRIMARY CARE PHYSICIAN: Giovani Hagen MD [address] [place] [address] CHIEF COMPLAINT: Syncope HISTORY OF PRESENT ILLNESS:(NURSING [...] for ischemia (more content not included)... Normal [facility] STRESS ECHO TREADMILLon 04-2 STRESS ECHO TREADMILL Stress Engineering Scientist Report: Stress Echo [facility] J1-5 Date of service: 08/13/2024 12:34:08 PM STRIPPER Supervising physician: Geremias Higuera MD PATIENT: Name: ORION HARPER Age: 33 years Gender: F The supervising physician was in the department and immediately available. Final -------- Echocardiography Report: Stress Echo [facility] J1-5 Date of service: 08/13/2024 12:34:08 PM STRIPPER Ordering physician: SOLO MORA Indication: Syncope Technologist: [...] the prior echocardiographic exam performed on 04/09/2024 ([place]). The major resting echocardiographic findings are comparable. Final -------- Stress ECG Report: Stress Echo [facility] J1-5 Date of service: 08/13/2024 12:34:08 PM STRIPPER Ordering physician: SOLO MORA early childhood specialist: Bunny Epperson Fellow: Kiley Gallagher MD [...] mmHg. The patient exercised according to the Jrezy protocol. The estimated end-exercise MET level achieved using the FRIEND equation was 8.3, which is within the 25th to 50th percentile for age and sex. The estimated e (more content not included)... Normal [facility] ORION HAR[facility] ([id number]) 1990 F Date Time Provider Department 07/26/24 [...] Iliana, Looks like labs were completed at [facility]. Patient is asking about results. 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 Has been having pain with intercourse for [...] - PELVIC US WHI - CONSULT TO AIRCRAFT ENGINE INSTALLER PELVIC PAIN 2. Pelvic pain in female - ICD9: 625.9, ICD10: R10.2 - counseled. - PELVIC US WHI - CONSULT TO AIRCRAFT ENGINE INSTALLER PELVIC PAIN Javy Boudreaux MD Medical Decision Making: Problems: Moderate: New problem with uncertain prognosis Data: Unique test(s) ordered: 2 Risk: Low: Low risk from testing/treatment Medical Decision Making Level: 3 - Low Referring Provider: DARWIN STARR [[id number]] Allergies As of Date: 07/10/2024 Noted Allergy [...] Diagnosis:Pelvic edward (more content not included)... Normal [facility] Comprehensive metabolic 2000 panelon 07-10-2024 Albumin [Mass/Vol] 4.5 g/dL Normal 3.9-4.9 [facility] Comment on above: Order Comment: Speci men Type: STOOL SPECIMEN Ordering Facility: [facility] Address: [address] [place] [address] Performed By: #### 5 4067-4, CDEIA #### [facility] CLIA [id number] [address] [place] [address] [place] ALP [Catalytic activity/Vol] 130 U/L High 34-123 [facility] Comment on above: Order Comment: Speci men Type: STOOL SPECIMEN Ordering Facility: [facility] Address: [address] [place] [address] Performed By: #### 5 4067-4, CDEIA #### [facility] CLIA [id number] [address] [place] [address] [place] ALT [Catalytic activity/Vol] 141 U/L High 7-38 [facility] Comment on above: Order Comment: Speci men Type: STOOL SPECIMEN Ordering Facility: [facility] Address: [address] [place] [address] Performed By: #### 5 4067-4, CDEIA #### [facility] CLIA [id number] [address] [place] [address] [place] Anion gap [Moles/Vol] 11 mmol/L Normal 8-15 [facility] Comment on above: Order Comment: Speci men Type: STOOL SPECIMEN Ordering Facility: [facility] Address: [address] [place] [address] Performed By: #### 5 4067-4, CDEIA #### [facility] CLIA [id number] [address] [place] [address] [place] AST [Catalytic activity/Vol] 90 U/L High 13-35 [facility] Comment on above: Order Comment: Speci men Type: STOOL SPECIMEN Ordering Facility: [facility] Address: [address] [place] [address] Performed By: #### 5 4067-4, CDEIA #### [facility] CLIA [id number] [address] [place] [address] [place] Bilirubin [Mass/Vol] 0.4 mg/dL Normal 0.2-1.3 [facility] Comment on above: Order Comment: Speci men Type: STOOL SPECIMEN Ordering Facility: [facility] Address: [address] [place] [address] Performed By: #### 5 4067-4, CDEIA #### [facility] CLIA [id number] [address] [place] [address] [place] Calcium [Mass/Vol] 9.4 mg/dL Normal 8.5-10.2 [facility] Comment on above: Order Comment: Speci men Type: STOOL SPECIMEN Ordering Facility: [facility] Address: [address] [place] [address] Performed By: #### 5 4067-4, CDEIA #### [facility] CLIA [id number] [address] [id number] [address] [place] Chloride [Moles/Vol] 102 mmol/L Normal 98-107 [facility] Comment on above: Order Comment: Speci men Type: STOOL SPECIMEN Ordering Facility: [facility] Address: [address] [place] [address] Performed By: #### 5 4067-4, CDEIA #### [facility] CLIA [id number] [address] [place] [address] [place] CO2 [Moles/Vol] 23 mmol/L Normal 22-30 [facility] Comment on above: Order Comment: Speci men Type: STOOL SPECIMEN Ordering Facility: [facility] Address: [address] [place] [address] Performed By: #### 5 4067-4, CDEIA #### [facility] CLIA [id number] [address] [place] [address] [place] Creatinine [Mass/Vol] 0.71 mg/dL Normal 0.58-0.96 [facility] Comment on above: Order Comment: Speci men Type: STOOL SPECIMEN Ordering Facility: [facility] Address: [address] [place] [address] Performed By: #### 5 4067-4, CDEIA #### [facility] CLIA [id number] [address] [place] [address] [place] [facility] Creatinine and Glomerular filtration rate.predicted panel (S/P/Bld) 114 mL/min/1.73m??? Normal >=60 [facility] Comment on above: Order Comment: Speci men Type: STOOL SPECIMEN Ordering Facility: [facility] Address: [address] [place] [address] Result Comment: Chely mated Glomerular Filtration Rate [...] Performed By: #### 5 4067-4, CDEIA #### [facility] CLIA [id number] [address] [place] [address] [place] Glucose [Mass/Vol] 121 mg/dL High 74-99 [facility] Comment on above: Order Comment: Speci men Type: STOOL SPECIMEN Ordering Facility: [facility] Address: [address] [place] [address] Result Comment: The [place] Diabetes Association (ADA) provides guidance for cutoff [...] Standards of Medical Care in Diabetes 2016, [place] [employer] Association. Diabetes Care. 2016.39(Suppl 1). Performed By: #### 5 4067-4, CDEIA #### [facility] CLIA [id number] [address] [place] [address] [place] Potassium [Moles/Vol] 3.6 mmol/L Low 3.7-5.1 [facility] Comment on above: Order Comment: Speci men Type: STOOL SPECIMEN Ordering Facility: [facility] Address: [address] [place] [address] Performed By: #### 5 4067-4, CDEIA #### [facility] CLIA [id number] [address] [place] [address] [place] Protein [Mass/Vol] 7.3 g/dL Normal 6.3-8.0 [facility] Comment on above: Order Comment: Speci men Type: STOOL SPECIMEN Ordering Facility: [facility] Address: [address] [place] [address] Performed By: #### 5 4067-4, CDEIA #### [facility] CLIA [id number] [address] [place] [address] [place] Sodium [Moles/Vol] 136 mmol/L Normal 136-144 [facility] Comment on above: Order Comment: Speci men Type: STOOL SPECIMEN Ordering Facility: [facility] Address: [address] [place] [address] Performed By: #### 5 4067-4, CDEIA #### [facility] CLIA [id number] [address] [place] [address] [place] Urea nitrogen [Mass/Vol] 9 mg/dL Normal 7-21 [facility] Comment on above: Order Comment: Speci men Type: STOOL SPECIMEN Ordering Facility: [facility] Address: [address] [place] [address] Performed By: #### 5 4067-4, CDEIA #### [facility] CLIA [id number] [address] [place] [address] [place] Ferritin SerPl-mCncon 2024 Ferritin [Mass/Vol] 392.0 ng/mL High 14.7-205.1 [facility] Comment on above: Order Comment: Speci men Type: STOOL SPECIMEN Ordering Facility: [facility] Address: [address] [place] [address] Performed By: #### 5 4067-4, CDEIA #### [facility] CLIA [id number] [address] [place] [address] [place] US Pelvison 07-10-2024 [...] Read By: Lulú Washburn M.D. MATERNAL MEDICINE [facility] Radiology Study observation (narrative) [facility] XR ABD 2V SUPINE W UPR/DECUB /CTLon [...] IMPRESSION: Mild to moderate colonic stool content Policy Writer Typist: [facility] Transcribe Date/Time: Jul 13 2024 9:59A Dictated by : BUNNY LIANG MD This examination was interpreted and the report reviewed and electronically signed by: BUNNY LIANG MD on Jul 13 2024 10:05AM EST [id number] Normal [facility] XR Ankle - right 3 Viewson 0 07-03-2024 Imaging Result: Three views were taken today AP/MORT/LAT Ankle: No fractures or dislocations seen joint in good position and alignment [facility] Radiology Study observation (narrative) [facility] RECURRENT VAGINITIS (HTRX)on 06-26-2024 ATOPOBIUM VAGINAE 0 [facility] ATOPOBIUM VAGINAE Not detected [facility] BVAB 2,3 (BACTERIAL VAGINOSIS ASSOCIATED BACTERIA 2, 3); MOBILUNCUS SPP 0 [facility] BVAB 2,3 (BACTERIAL VAGINOSIS ASSOCIATED BACTERIA 2, 3); MOBILUNCUS SPP Not detected [facility] SHARIF ALBICANS, PARAPSILOSIS, TROPICALIS 0 [facility] SHARIF ALBICANS, PARAPSILOSIS, TROPICALIS Not detected [facility] SHARIF GLABRATA 0 [facility] SHARIF GLABRATA Not detected [facility] SHARIF KRUSEI 0 [facility] SHARIF KRUSEI Not detected [facility] CHLAMYDIA TRACHOMATIS 0 [facility] CHLAMYDIA TRACHOMATIS Not detected [facility] GARDNERELLA VAGINALIS 0 [facility] GARDNERELLA VAGINALIS Not detected [facility] MEGASPHAERA (TYPES 1, 2) 0 [facility] MEGASPHAERA (TYPES 1, 2) Not detected [facility] MYCOPLASMA GENITALIUM 0 [facility] MYCOPLASMA GENITALIUM Not detected [facility] NEISSERIA GONORRHOEAE 0 [facility] NEISSERIA GONORRHOEAE Not detected [facility] TRICHOMONAS VAGINALIS 0 [facility] TRICHOMONAS VAGINALIS Not detected [facility] MLR HEMOGLOBIN A1Con 025 Glucose [Mass/Vol] 126 mg/dL [facility] HbA1c (Bld) [Mass fraction] 6 % 4.5 - 6.2 % [facility] Comment on above: ADA RECOMMENDED LIMI T 4.0 - 6.0 ADA THERAPEUTIC TARGET < 7.0 ACTION SUGGESTED > 7.0 [facility] ALL CBC WITH AUTO DIFFon BASOPHILS ABSOLUTE AUTO 0 [facility] Basophils/100 WBC (Bld) 0.4 % 0.2 - 2.0 % [facility] Eosinophils/100 WBC (Bld) 4.4 % 0.9 - 7.0 % [facility] Erythrocyte distribution width (RBC) [Ratio] 13.2 % 11.0 - 15.0 % [facility] Hematocrit (Bld) [Volume fraction] 41.6 % 36.0 - 48.0 % [facility] Hemoglobin (Bld) [Mass/Vol] 14 g/dL 12.0 - 16.0 g/dL [facility] IMMATURE GRANULOCYTES ABS AUTO 0.13 High [facility] Immature granulocytes/100 WBC (Bld) 1.6 % High 0.0 - 0.5 % [facility] Interpretation and review of laboratory results Abnormal [facility] LYMPHOCYTES ABSOLUTE AUTO 2.7 [facility] Lymphocytes/100 WBC (Bld) 33.8 % 20.5 - 60.0 % [facility] MCH (RBC) [Entitic mass] 32.6 pg 26.7 - 34.0 pg [facility] MCHC (RBC) [Mass/Vol] 33.7 g/dL 29.9 - 35.2 g/dL [facility] MCV (RBC) [Entitic vol] 96.7 fL 81.0 - 99.0 fL [facility] MONOCYTES ABSOLUTE AUTO 0.5 [facility] Monocytes/100 WBC (Bld) 5.9 % 1.7 - 12.0 % [facility] NEUTROPHILS ABSOLUTE AUTO 4.4 [facility] Neutrophils/100 WBC (Bld) 53.9 % 43.0 - 75.0 % [facility] Platelet mean volume (Bld) [Entitic vol] 10.4 fL 9.5 - 13.5 fL [facility] TBH EO # 0.4 [facility] TBH PLT 257 [facility] RBC 4.3 [facility] WBC 8.1 [facility] C. difficile toxin genes SHEILA +probe Ql (Stl)on 05-23-2024 Interpretation and review of laboratory results Abnormal [facility] CLOSTRIDIUM DIFFICILE TOXIN BY PCRon 05-23-2024 C. difficile toxin genes SHEILA+probe Ql (Stl) Positive Abnormal Negative for C. difficile toxin by PCR [facility] Comment on above: A positive PCR resul [...] for specimen submission. [place] 05-23-2024 HUYEN Telephone (JUDNO) ORION HARPER ([id number]) 1990 F Date Time Provider Department 05/23/24 [...] Status:Closed by BENITO SORIANO on 05/24/24 Normal [facility] ANES POSTPROC EVALon 025 ANES POSTPROC EVAL HNO ID: [id number] Author: OBED BHATT APRN.CRNA Service: Anesthesiology Author Type: Nurse Visually Impaired Teacher Type: Anesthesia Postprocedure Evaluation Filed: 05/22/2024 14:22 Note Text: POST ANESTHESIA EVALUATION NOTE : 1990 Procedure Summary Date: 05/22/24 Room / Location: Ambulatory Surgery Anesthesia Start: 1345 Anesthesia Stop: 1422 Procedure: COLONOSCOPY DIAGNOSTIC Diagnosis: BRBPR (bright red blood per rectum) (Rectal bleeding) Scheduled Providers: Carol Winn MD; Obed Bhatt APRN.GUNNER'S MATE M; Millicent Schmitz RN Responsible Provider: Obed Bhatt [...] May 22, 2024 TIME: 2:22 PM CSN: [id number] Normal [facility] ANES PRE-OPon 05-22-2024 ANES PRE-OP HNO ID: [id number] Author: OBED BHATT APRN.CRNA Service: Anesthesiology Author Type: Nurse Visually Impaired Teacher Type: Anesthesia Preprocedure Evaluation Filed: 05/22/2024 14:23 [...] May 22, 2024 TIME: 2:22 PM CSN: [id number] Normal [facility] PRE-OP HNO ID: [id number] Author: OBED BHATT APRN.CRNA Service: Anesthesiology Author Type: Nurse Visually Impaired Teacher Type: Anesthesia Preprocedure Evaluation Filed: 05/22/2024 14:21 [...] May 22, 2024 TIME: 2:18 PM CSN: [id number] Normal [facility] C diff Tox gens Stl Ql SHEILA+p robeon 05-22-2024 C. difficile toxin genes SHEILA+probe Ql (Stl) Positive Abnormal Negative for C. difficile toxin by PCR [facility] Comment on above: Order Comment: Rl basilio Type: STOOL SPECIMEN Ordering Facility: [facility] Address: [address] [place] [address] Result Comment: A po sitive PCR result [...] Performed By: #### 5 4067-4, CDEIA #### [facility] CLIA [id number] [address] [place] [address] STATES OF [place] CLOSTRIDIUM DIFFICILE TOXIN BY EIAon 05-22-2024 C. difficile toxin A+B IA Ql (Stl) Not detected Normal Negative for C. difficile toxin [facility] Comment on above: Order Comment: Rl basilio Type: STOOL SPECIMEN Ordering Facility: [facility] Address: [address] [place] [address] Result Comment: Toxi n EIA is less sensitive than cell cytotoxin and PCR assays. Clinical correlation of PCR positive/toxin EIA negative results is required to distinguish C. difficle colonization from disease. Performed By: #### 5 4067-4, CDEIA #### [facility] CLIA [id number] [address] [place] [address] STATES OF [facility] COLONOSCOPYon 05-22-2024 [facility] Gastroenterology Gastrointestinal Endoscopy Patient Name: Orion Harper Procedure Date: 05/22/2024 1:40 PM Date of : 1990 Admit Type: Outpatient Age: 33 Room: [facility] 2 Gender: Female Note Status: Finalized Attending MD: Carol Winn MD, [id number] Procedure: Colonoscopy Indications: Rectal bleeding, Change in [...] verified by the physician, the nurse, the director of billing and the technician terminal and repeater in the procedure room. Mental Status Examination: [...] bowel preparation was evaluated using the BBPS (Clarkson Bowel Preparation Scale) with scores of: Right [...] [facility], Radiologist, MD - 05/22/2024 [facility] Gastroenterology Gastrointestinal Endoscopy Patient Name: Orion Harper Procedure Date: 05/22/2024 1:40 PM Date of : 1990 Admit Type: Outpatient Age: 33 Room: [place] [address] Gender: Female Note Status: Finalized Attending MD: Carol Winn MD, [id number] Procedure: Colonoscopy Indications: Rectal bleeding, Change in [...] verified by the physician, the nurse, the director of billing and the technician terminal and repeater in the procedure room. Mental Status Examination: [...] bowel preparation was evaluated using the BBPS (Clarkson Bowel Preparation Scale) with scores of: Right [...] once a da (more content not included)... [facility] COL[facility]COPYOrdered By: [facility] on 05-22-2024 [facility] Work Phone: Colonoscopyon 05-22-[address] 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 Mental Status Examination: [...] bowel preparation was evaluated using the BBPS (Clarkson Bowel Preparation Scale) with scores of: Right [...] previously scheduled. (more content not included)... Normal [facility] Flexible sigmoidoscopy study on 05-22-2024 [facility] Gastroenterology Gastrointestinal Endoscopy Patient Name: Orion Harper Procedure Date: 05/22/2024 1:40 PM Date of : 1990 Admit Type: Outpatient Age: 33 Room: [facility] 2 Gender: Female Note Status: Finalized Attending MD: Carol Winn MD, [id number] Procedure: Colonoscopy Indications: Rectal bleeding, Change in [...] verified by the physician, the nurse, the director of billing and the technician terminal and repeater in the procedure room. Mental Status Examination: [...] bowel preparation was evaluated using the BBPS (Clarkson Bowel Preparation Scale) with scores of: Right [...] were ph (more content not included)... [facility] Gastrointestinal pathogens i dentified SHEILA+probe Nom (Stl)on 05-22-2024 Campylobacter sp DNA SHEILA+probe Nom (Unsp spec) Not detected Normal Not Detected [facility] Comment on above: Order Comment: Speci men Type: STOOL SPECIMEN Ordering Facility: [facility] Address: [address] [place] [address] Performed By: #### 7 9390-1 #### [facility] CLIA [id number] [address] [place] [address] [place] [address] [place] Salmonella sp DNA SHEILA+probe Ql (Unsp spec) Not detected Normal Not Detected [facility] Comment on above: Order Comment: Speci men Type: STOOL SPECIMEN Ordering Facility: [facility] Address: [address] [place] [address] Performed By: #### 7 9390-1 #### [facility] CLIA [id number] [address] [place] [address] OF [place] Shiga toxin stx gene SHEILA+probe Nom (Unsp spec) Not detected Normal Not Detected [facility] Comment on above: Order Comment: Speci men Type: STOOL SPECIMEN Ordering Facility: [facility] Address: [address] [place] [address] Performed By: #### 7 9390-1 #### [facility] CLIA [id number] [address] [place] [address] STATES [place] Shigella sp DNA SHEILA+probe Ql (Unsp spec) Not detected Normal Not Detected [facility] Comment on above: Order Comment: Speci men Type: STOOL SPECIMEN Ordering Facility: [facility] Address: [address] [place] [address] Performed By: #### 7 9390-1 #### [facility] CLIA [id number] [address] [place] [address] [place] OF [place] HISTORY PHYSICALon HISTORY PHYSICAL HNO ID: [id number] Author: CAROL WINN MD Service: Gastroenterology Author [...] May 22, 2024 TIME: 1:39 PM Normal [facility] NURSING PROGon 05-22-2024 NURSING PROG HNO ID: [id number] Author: LINDSEY BUCKLEY RN Service: ? Author [...] Buckley RN In Department: AMBULATORY SURGERY Normal [facility] No Panel Informationon 05-22 Radiology Study observation (narrative) [facility] SURGICAL PATHOLOGYon 025 CASE REPORT Normal [facility] Comment on above: Order Comment: Speci men Type: STOOL SPECIMEN Ordering Facility: [facility] Address: [address] [place] [address] Result Comment: Surg ical Pathology Report Case: [id number] Authorizing Provider: Carol Winn MD Collected: 05/22/2024 02:05 PM Ordering Location: Ambulatory Surgery Received: 05/22/2024 08:39 PM Pathologist: Fe Barnes MD Specimens: A) - Colon, Right, Biopsy, r/o microscopic colitis, r/o inflammation B) - Colon, Left, Biopsy, r/o microscopic colitis, r/o inflammation Performed By: #### 5 4067-4, CDEIA #### [facility] CLIA [id number] [address] [place] [address] FINAL DIAGNOSIS Normal [facility] Comment on above: Order Comment: Speci men Type: STOOL SPECIMEN Ordering Facility: [facility] Address: [address] [place] [address] Result Comment: A. C olon, right, biopsy: - Colonic mucosa with no significant pathologic change. B. Colon, left, biopsy: - Colonic mucosa with no significant pathologic change. Performed By: #### 5 4067-4, CDEIA #### [facility] CLIA [id number] [address] [place] [address] OF [place]ASH FINAL PERFORMING LAB Normal [facility] Comment on above: Order Comment: Speci men Type: STOOL SPECIMEN Ordering Facility: [facility] Address: [address] [place] [address] Result Comment: Diag nostic interpretation performed at: [facility], [address] [place] [address] CLIA# [id number] Assembly Press Operator: Alhaji Galvez MD Performed By: #### 5 4067-4, PEREZA #### [facility] CLIA [id number] [address] [place] [address] [place] OF [place] GROSS DESCRIPTION Normal [facility] Comment on above: Order Comment: Speci men Type: STOOL SPECIMEN Ordering Facility: [facility] Address: [address] [place] [address] Result Comment: A. C olon, Right, Biopsy [...] 2024 10:34 PM Gross examination performed at [facility], [address] [place] [address] Performed By: #### 5 4067-4, ETHAN #### [facility] CLIA [id number] [address] [place] [address] [place] XR Ankle - right 3 Viewson 0 05-15-2024 Imaging Result: XRAY: Three views were taken today AP/MORT/LAT Ankle: No fractures or dislocations seen no spurring noted at the lateral ankle ligament complex noted as reported on the MRI [facility] Radiology Study observation (narrative) [facility] ALL CBC WITH AUTO DIFFon BASOPHILS ABSOLUTE AUTO 0 [facility] Basophils/100 WBC (Bld) 0.4 % 0.2 - 2.0 % [facility] Eosinophils/100 WBC (Bld) 2.2 % 0.9 - 7.0 % [facility] Erythrocyte distribution width (RBC) [Ratio] 12.9 % 11.0 - 15.0 % [facility] Hematocrit (Bld) [Volume fraction] 41.2 % 36.0 - 48.0 % [facility] Hemoglobin (Bld) [Mass/Vol] 13.8 g/dL 12.0 - 16.0 g/dL [facility] IMMATURE GRANULOCYTES ABS AUTO 0.19 High [facility] Immature granulocytes/100 WBC (Bld) 1.9 % High 0.0 - 0.5 % [facility] Interpretation and review of laboratory results Abnormal [facility] LYMPHOCYTES ABSOLUTE AUTO 3 [facility] Lymphocytes/100 WBC (Bld) 30.1 % 20.5 - 60.0 % [facility] MCH (RBC) [Entitic mass] 32.7 pg 26.7 - 34.0 pg [facility] MCHC (RBC) [Mass/Vol] 33.5 g/dL 29.9 - 35.2 g/dL [facility] MCV (RBC) [Entitic vol] 97.6 fL 81.0 - 99.0 fL [facility] MONOCYTES ABSOLUTE AUTO 0.7 [facility] Monocytes/100 WBC (Bld) 6.6 % 1.7 - 12.0 % [facility] NEUTROPHILS ABSOLUTE AUTO 5.8 [facility] Neutrophils/100 WBC (Bld) 58.8 % 43.0 - 75.0 % [facility] Platelet mean volume (Bld) [Entitic vol] 10.8 fL 9.5 - 13.5 fL [facility] TBH EO # 0.2 [facility] TBH PLT 206 [facility] TB RBC 4.22 [facility] WBC 9.9 [facility]ISYNC [facility] CNPNon 05-06-2024 [facility] Telephone (CARDMN) ORION HARPER ([id number]) 1990 F Date Time Provider Department 05/06/24 SOLO MORA During your visit today, we recorded the following information about you: Criss Mccrary 05/06/2024 1:41 PM Signed Echo was faxed to Anne-Marie @ [phone] AND scanned into outside ep. Patient is [...] Status:Closed by CRISS MCCRARY on 05/06/24 Normal [facility] Liver ultrasound attenuation by transient elastographyon [...] and referral to hepatology. Zehra Gray PA-C MASRAJINDER Fibroscan Fibrosis Risk <7 kPA = F0-F2 [...] Int J Clin Exp Med. 2015 Jan 15;8(10):36927-43. PMID: 29609114; PMCID: [id number]. Ruthann Bob, Juan FANTASMA, Rico M, Cosmo F, Tawnya J, Everardo O, Leyla F, Franci M, Alejandro G, Dorie A, Gianna E, Leyla L, French G, Kashmir A, Vicente U, Jodi S, Franc P, Max V, de Kole V, Leena M, Neo MARIE. Refining the Baveno elastography criteria for the definition of compensated advanced chronic liver disease. J Hepatol. 2020;74(5):1523-3167. doi: 10.1016/j.jhep.2020.1 1.050. Ep2019Apr 01. PMID: 83418180. Izabel Bob, Chastity Moran, Martha Bob, Xiao Bob, Joon S, Nuria Roth, Trevin Roth, Trixie Kendrick. AASLD practice guidance on the clinical assessment and management of nonalcoholic fatty liver disease. Hepatology. 2022;77(5):1598-1499. doi:10.1097/HEP.17295 [id number] [facility] Radiology Study observation (narrative) [facility] Radiology Study observation (narrative) [facility] A1AT SerPl-mCncon 04-26-2024 Alpha 1 antitrypsin [Mass/Vol] 123 mg/dL Normal 90-200 [facility] Comment on above: Order Comment: Rl basilio Type: BLOOD SPECIMEN Ordering Facility: [facility] Address: [address] [place] [address] Performed By: #### 1 825-9, 2064-4 #### [facility] CLIA [id number] [address] [place] [address] [place] AFP SerPl-ncon 04-26-2024 AFP [Mass/Vol] 3.01 ng/mL Normal <9.00 [place] [facility] Comment on above: Order Comment: Rl basilio Type: BLOOD SPECIMEN Ordering Facility: [facility] Address: [address] [place] [address] Result Comment: The Alpha-Fetoprotein test was performed using the Sage Unicel DxI immunoenzymatic assay. Results obtained with different assay methods or kits cannot be used interchangeably. Performed By: #### 1 834-1 #### [facility] CLIA [id number] [address] [place] [address] [place] DENY BY IFA WITH REFLEXon Nuclear Ab Ql (S) Negative Normal Negative [place] [facility]epeda Comment on above: Order Comment: Rl basilio Type: BLOOD SPECIMEN Ordering Facility: [facility] Address: [address] [place] [address] Result Comment: Anti -nuclear antibody test is used as an aid in diagnosis of systemic autoimmune diseases. Where positive and clinically warranted, follow-up using disease-specific testing is recommended. Low positive titers are not uncommon with advanced age, certain chronic infections, and malignancies among others. Test methodology: Indirect fluorescence immunoassay (IFA) using HEp-2 cells. Performed By: #### A NAIFR #### [facility] CLIA [id number] [address] [place] [address] [place] [address] [place] CBC W Auto Differential pane l (Bld)on 04-26-2024 Basophils (Bld) [#/Vol] 0.06 10*3/uL [facility] Differential cell count method Nom (Bld) Auto [facility] Eosinophils (Bld) [#/Vol] [facility] Immature granulocytes (Bld) [#/Vol] 0.33 10*3/uL High [facility] Immature granulocytes/100 WBC (Bld) 2.7 % [facility] Lymphocytes (Bld) [#/Vol] 2.80 10*3/uL [facility] MCH (RBC) [Entitic mass] 32.0 pg 26.0 - 34.0 pg [facility] Monocytes (Bld) [#/Vol] 0.41 10*3/uL [facility] Neutrophils (Bld) [#/Vol] 8.78 10*3/uL High [facility] Nucleated RBC (Bld) [#/Vol] [facility] Nucleated RBC/100 WBC (Bld) [Ratio] 0.0 % /100 WBC [facility] Platelet mean volume (Bld) [Entitic vol] 10.8 fL 9.0 - 12.7 fL [facility] Platelets (Bld) [#/Vol] 271 10*3/uL [facility] WBC (Bld) [#/Vol] 12.39 10*3/uL High [facility] Basophils (Bld) [#/Vol] 0.06 10*3/uL Normal <0.11 [facility] Comment on above: Order Comment: Rl basilio Type: BLOOD SPECIMEN Ordering Facility: [facility] Address: [address] [place] [address] Performed By: #### 1 , 2063-07 #### [facility] CLIA [id number] [address] [place] [address] [place] Basophils/100 WBC (Bld) 0.5 % Normal [facility] Comment on above: Order Comment: Speci men Type: BLOOD SPECIMEN Ordering Facility: [facility] Address: [address] [place] [address] Performed By: #### 1 , 2063-07 #### [facility] CLIA [id number] [address] [place] [address] [place] Differential cell count method Nom (Bld) Auto [facility] Comment on above: Order Comment: Speci men Type: BLOOD SPECIMEN Ordering Facility: [facility] Address: [address] [place] [address] Performed By: #### 1 , 2063-07 #### [facility] CLIA [id number] [address] [place] [address] [place] Eosinophils (Bld) [#/Vol] 10*3/uL Normal <0.46 [facility] Comment on above: Order Comment: Speci men Type: BLOOD SPECIMEN Ordering Facility: [facility] Address: [address] [place] [address] Performed By: #### 1 , 2063-07 #### [facility] CLIA [id number] [address] [place] [address] [place] Eosinophils/100 WBC (Bld) 0.1 % Normal [facility] Comment on above: Order Comment: Speci men Type: BLOOD SPECIMEN Ordering Facility: [facility] Address: [address] [place] [address] Performed By: #### 1 , 2063-07 #### [facility] CLIA [id number] [address] [place] [address] [place] Erythrocyte distribution width (RBC) [Ratio] 12.5 % Normal 11.5-15.0 [facility] Comment on above: Order Comment: Speci men Type: BLOOD SPECIMEN Ordering Facility: [facility] Address: [address] [place] [address] Performed By: #### 1 829, 2063-07 #### [facility] CLIA [id number] [address] [place] [address] [place] Hematocrit (Bld) [Volume fraction] 46.1 % High 36.0-46.0 [facility] Comment on above: Order Comment: Speci men Type: BLOOD SPECIMEN Ordering Facility: [facility] Address: [address] [place] [address] Performed By: #### 1 829, 2063-07 #### [facility] CLIA [id number] [address] [place] [address] [place] Hemoglobin (Bld) [Mass/Vol] 15.5 g/dL Normal 11.5-15.5 [facility] Comment on above: Order Comment: Speci men Type: BLOOD SPECIMEN Ordering Facility: [facility] Address: [address] [place] [address] Performed By: #### 1 8208-30, 2063-07 #### [facility] CLIA [id number] [address] [place] [address] [place] Immature granulocytes (Bld) [#/Vol] 0.33 10*3/uL High <0.10 [facility] Comment on above: Order Comment: Speci men Type: BLOOD SPECIMEN Ordering Facility: [facility] Address: [address] [place] [address] Performed By: #### 1 8208-30, 2063-07 #### [facility] CLIA [id number] [address] [place] [address] [place] Immature granulocytes/100 WBC (Bld) 2.7 % Normal [facility] Comment on above: Order Comment: Speci men Type: BLOOD SPECIMEN Ordering Facility: [facility] Address: [address] [place] [address] Performed By: #### 1 829, 2063-07 #### [facility] CLIA [id number] [address] [place] [address] [place] Lymphocytes (Bld) [#/Vol] 2.80 10*3/uL Normal 1.00-4.00 [facility] Comment on above: Order Comment: Speci men Type: BLOOD SPECIMEN Ordering Facility: [facility] Address: [address] [place] [address] Performed By: #### 1 829, 2063-07 #### [facility] CLIA [id number] [address] [place] [address] [place] Lymphocytes/100 WBC (Bld) 22.6 % Normal [facility] Comment on above: Order Comment: Speci men Type: BLOOD SPECIMEN Ordering Facility: [facility] Address: [address] [place] [address] Performed By: #### 1 829, 2063-07 #### [facility] CLIA [id number] [address] [place] [address] [place] MCH (RBC) [Entitic mass] 32.0 pg Normal 26.0-34.0 [facility] Comment on above: Order Comment: Speci men Type: BLOOD SPECIMEN Ordering Facility: [facility] Address: [address] [place] [address] Performed By: #### 1 8259, 2063-07 #### [facility] CLIA [id number] [address] [place] [address] [place] MCHC (RBC) [Mass/Vol] 33.6 g/dL Normal 30.5-36.0 [facility] Comment on above: Order Comment: Speci men Type: BLOOD SPECIMEN Ordering Facility: [facility] Address: [address] [place] [address] Performed By: #### 1 , 2063-07 #### [facility] CLIA [id number] [address] [place] [address] [place] MCV (RBC) [Entitic vol] 95.1 fL Normal 80.0-100.0 [facility] Comment on above: Order Comment: Speci men Type: BLOOD SPECIMEN Ordering Facility: [facility] Address: [address] [place] [address] Performed By: #### 1 , 2063-07 #### [facility] CLIA [id number] [address] [place] [address] [place] Monocytes (Bld) [#/Vol] 0.41 10*3/uL Normal <0.87 [facility] Comment on above: Order Comment: Speci men Type: BLOOD SPECIMEN Ordering Facility: [facility] Address: [address] [place] [address] Performed By: #### 1 , 2063-07 #### [facility] CLIA [id number] [address] [place] [address] [place] Monocytes/100 WBC (Bld) 3.3 % Normal [facility] Comment on above: Order Comment: Speci men Type: BLOOD SPECIMEN Ordering Facility: [facility] Address: [address] [place] [address] Performed By: #### 1 , 2063-07 #### [facility] CLIA [id number] [address] [place] [address] [place] Neutrophils (Bld) [#/Vol] 8.78 10*3/uL High 1.45-7.50 [facility] Comment on above: Order Comment: Speci men Type: BLOOD SPECIMEN Ordering Facility: [facility] Address: [address] [place] [address] Performed By: #### 1 , 2063-07 #### [facility] CLIA [id number] [address] [place] [address] [place] Neutrophils/100 WBC (Bld) 70.8 % Normal [facility] Comment on above: Order Comment: Speci men Type: BLOOD SPECIMEN Ordering Facility: [facility] Address: [address] [place] [address] Performed By: #### 1 829, 2063-07 #### [facility] CLIA [id number] [address] [place] [address] [place] Nucleated RBC (Bld) [#/Vol] 10*3/uL Normal <0.01 [facility] Comment on above: Order Comment: Speci men Type: BLOOD SPECIMEN Ordering Facility: [facility] Address: [address] [place] [address] Performed By: #### 1 8208-30, 2063-07 #### [facility] CLIA [id number] [address] [place] [address] [place] Nucleated RBC/100 WBC (Bld) [Ratio] 0.0 /100 WBC Normal [facility] Comment on above: Order Comment: Speci men Type: BLOOD SPECIMEN Ordering Facility: [facility] Address: [address] [place] [address] Performed By: #### 1 8208-30, 2063-07 #### [facility] CLIA [id number] [address] [place] [address] [place] Platelet mean volume (Bld) [Entitic vol] 10.8 fL Normal 9.0-12.7 [facility] Comment on above: Order Comment: Speci men Type: BLOOD SPECIMEN Ordering Facility: [facility] Address: [address] [place] [address] Performed By: #### 1 8208-30, 2063-07 #### [facility] CLIA [id number] [address] [place] [address] [place] Platelets (Bld) [#/Vol] 271 10*3/uL Normal 150-400 [facility] Comment on above: Order Comment: Speci men Type: BLOOD SPECIMEN Ordering Facility: [facility] Address: [address] [place] [address] Performed By: #### 1 825-9, 2063-07 #### [facility] CLIA [id number] [address] [place] [address] [place] RBC (Bld) [#/Vol] 4.85 10*6/uL Normal 3.90-5.20 [facility] Comment on above: Order Comment: Speci men Type: BLOOD SPECIMEN Ordering Facility: [facility] Address: [address] [place] [address] Performed By: #### 1 825-9, 2063-07 #### [facility] CLIA [id number] [address] [place] [address] [place] WBC (Bld) [#/Vol] 12.39 10*3/uL High 3.70-11.00 [facility] Comment on above: Order Comment: Speci men Type: BLOOD SPECIMEN Ordering Facility: [facility] Address: [address] [place] [address] Performed By: #### 1 825-9, 2063-07 #### [facility] CLIA [id number] [address] [place] [address] [place] [facility] CBC W AUTO DIFF BLDon [facility] BASOPHILS # BLD AUTO 0.06 [facility] DIFFERENTIAL METHOD BLD Auto [facility] EOSINOPHIL # BLD AUTO <0.03 [facility] LYMPHOCYTES # BLD AUTO 2.8 [facility] MONOCYTES # BLD AUTO 0.41 [facility] NEUTROPHILS # BLD AUTO 8.78 High [facility] NRBC # BLD AUTO <0.01 [facility] NRBC/100 WBC BLD-RTO 0 /100 WBC [facility] PLATELET # BLD AUTO 271 [facility] PMV BLD AUTO 10.8 fL 9.0 - 12.7 fL [facility] WBC # BLD AUTO 12.39 High [facility] IMM GRANULOCYTES # BLD AUTO 0.33 High NINF [facility] IMM GRANULOCYTES/LEUK NFR BLD AUTO 2.7 % [facility] MCH (RBC) [Entitic mass] 32 pg 26.0 - 34.0 pg [facility] Specimen Type: BLOOD SPECIMEN Ordering Facility: [facility] Address: [facility] [place] [address] Original Ordering Provider: ILIANA Alexandra 04-26-2024 CNOV Office Visit (GASTNO ) ORION HARPER ([id number]) 1990 F Date Time Provider Department 04/26/24 [...] do not hesitate to send me a Shared Performance message or call. FARNAZ Mohr Lauren, PA-C [...] she saw Dr. Hylton in 2021 in [facility]. 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 Colonosc (more content not included)... Normal [facility] CNOV Office Visit (ORMDNA ) ORION HARPER ([id number]) 1990 F Date Time Provider Department 04/26/24 12:00 PM LYDIA KELLEY During your visit today, we recorded the following information about you: Lydia Kelleye, 05/09/2024 1:33 PM Signed Reason for Visit/Chief [...] and plan (more content not included)... Normal [facility] Ceruloplasmin SerPl-mCncon 0 04-26-2024 Ceruloplasmin [Mass/Vol] 27 mg/dL Normal 16-45 [facility] Comment on above: Order Comment: Speci men Type: BLOOD SPECIMEN Ordering Facility: [facility] Address: [address] [place] [address] Performed By: #### 1 825-9, 4-4 #### [facility] CLIA [id number] [address] [place] [address] [place] [address] [place] Comprehensive metabolic 2000 panelon 04-26-2024 Albumin [Mass/Vol] 4.7 g/dL 3.9 - 4.9 g/dL [facility] ALP [Catalytic activity/Vol] 144 U/L High 34 - 123 U/L [facility] ALT [Catalytic activity/Vol] 192 U/L High 7 - 38 U/L [facility] Anion gap [Moles/Vol] 13 mmol/L 8 - 15 mmol/L [facility] AST [Catalytic activity/Vol] 99 U/L High 13 - 35 U/L [facility] Bilirubin [Mass/Vol] 0.3 mg/dL 0.2 - 1 .3 mg/dL [facility] Calcium [Mass/Vol] 9.2 mg/dL 8.5 - 10. 2 mg/dL [facility] Chloride [Moles/Vol] 100 mmol/L 98 - 10 7 mmol/L [facility] CO2 [Moles/Vol] 25 mmol/L 22 - 30 mmol/L [facility] Creatinine [Mass/Vol] 0.58 mg/dL 0.58 - 0.96 mg/dL [facility] GFR/1.73 sq M.predicted among non-blacks MDRD (S/P/Bld) [Vol rate/Area] 121 mL/min/{1.73_m2} - PINF [facility] Comment on above: Estimated Glomerular [...] [Mass/Vol] 95 mg/dL 74 - 99 mg/dL [facility] Comment on above: The [place] Diab[employer] Association (ADA) provides guidance for [...] Standards of Medical Care in Diabetes 2016, [place] [employer]. Diabetes Care. 2016.39(Suppl 1). Interpretation and review of laboratory results Abnormal [facility] Potassium [Moles/Vol] 4.0 mmol/L 3.7 - 5.1 mmol/L [facility] Protein [Mass/Vol] 8.0 g/dL 6.3 - 8.0 g/dL [facility] Sodium [Moles/Vol] 138 mmol/L 136 - 144 mmol/L [facility] Urea nitrogen [Mass/Vol] 12 mg/dL 7 - 21 mg/dL [facility] Albumin [Mass/Vol] 4.7 g/dL Normal 3.9-4.9 [facility] Comment on above: Order Comment: Rl basilio Type: BLOOD SPECIMEN Ordering Facility: [facility] Address: [address] [place] [address] Performed By: #### 1 822063-07 #### [facility] CLIA [id number] [address] [place] [address] [place] ALP [Catalytic activity/Vol] 144 U/L High 34-123 [facility] Comment on above: Order Comment: Rl basilio Type: BLOOD SPECIMEN Ordering Facility: [facility] Address: [address] [place] [address] Performed By: #### 1 8282063-07 #### [facility] CLIA [id number] [address] [place] [address] [place] ALT [Catalytic activity/Vol] 192 U/L High 7-38 [facility] Comment on above: Order Comment: Speci men Type: BLOOD SPECIMEN Ordering Facility: [facility] Address: [address] [place] [address] Performed By: #### 1 825-9, 2063-07 #### [facility] CLIA [id number] [address] [place] [address] [place] Anion gap [Moles/Vol] 13 mmol/L Normal 8-15 [facility] Comment on above: Order Comment: Speci men Type: BLOOD SPECIMEN Ordering Facility: [facility] Address: [address] [place] [address] Performed By: #### 1 825-9, 2063-07 #### [facility] CLIA [id number] [address] [place] [address] [place] AST [Catalytic activity/Vol] 99 U/L High 13-35 [facility] Comment on above: Order Comment: Speci men Type: BLOOD SPECIMEN Ordering Facility: [facility] Address: [address] [place] [address] Performed By: #### 1 825-9, 2063-07 #### [facility] CLIA [id number] [address] [place] [address] [place] Bilirubin [Mass/Vol] 0.3 mg/dL Normal 0.2-1.3 [facility] Comment on above: Order Comment: Speci men Type: BLOOD SPECIMEN Ordering Facility: [facility] Address: [address] [place] [address] Performed By: #### 1 825-9, 2063-07 #### [facility] CLIA [id number] [address] [place] [address] [place] Calcium [Mass/Vol] 9.2 mg/dL Normal 8.5-10.2 [facility] Comment on above: Order Comment: Speci men Type: BLOOD SPECIMEN Ordering Facility: [facility] Address: [address] [place] [address] Performed By: #### 1 825-9, 2063-07 #### [facility] CLIA [id number] [address] [place] [address] [place] Chloride [Moles/Vol] 100 mmol/L Normal 98-107 [facility] Comment on above: Order Comment: Speci men Type: BLOOD SPECIMEN Ordering Facility: [facility] Address: [address] [place] [address] Performed By: #### 1 829, 2063-07 #### [facility] CLIA [id number] [address] [place] [address] [place] CO2 [Moles/Vol] 25 mmol/L Normal 22-30 [facility] Comment on above: Order Comment: Speci men Type: BLOOD SPECIMEN Ordering Facility: [facility] Address: [address] [place] [address] Performed By: #### 1 8259, 2063-07 #### [facility] CLIA [id number] [address] [place] [address] [place] Creatinine [Mass/Vol] 0.58 mg/dL Normal 0.58-0.96 [facility] Comment on above: Order Comment: Speci men Type: BLOOD SPECIMEN Ordering Facility: [facility] Address: [address] [place] [address] Performed By: #### 1 825-9, 2063-07 #### [facility] CLIA [id number] [address] [place] [address] [place] Creatinine and Glomerular filtration rate.predicted panel (S/P/Bld) 121 mL/min/1.73m??? Normal >=60 [facility] Comment on above: Order Comment: Speci men Type: BLOOD SPECIMEN Ordering Facility: [facility] Address: [address] [place] [address] Result Comment: Chely mated Glomerular Filtration Rate [...] Performed By: #### 1 8259, 2063-07 #### [facility] CLIA [id number] [address] [place] [address] [place] Glucose [Mass/Vol] 95 mg/dL Normal 74-99 [facility] Comment on above: Order Comment: Rl basilio Type: BLOOD SPECIMEN Ordering Facility: [facility] Address: [address] [place] [address] Result Comment: The [place] Diabetes Association (ADA) provides guidance for cutoff [...] Standards of Medical Care in Diabetes 2016, [place] [employer]. Diabetes Care. 2016.39(Suppl 1). Performed By: #### 1 8208-30, 2063-07 #### [facility] CLIA [id number] [address] [place] [address] [place] Potassium [Moles/Vol] 4.0 mmol/L Normal 3.7-5.1 [facility] Comment on above: Order Comment: Rl basilio Type: BLOOD SPECIMEN Ordering Facility: [facility] Address: [address] [place] [address] Performed By: #### 1 8259, 2063-07 #### [facility] CLIA [id number] [address] [place] [address] [place] Protein [Mass/Vol] 8.0 g/dL Normal 6.3-8.0 [facility] Comment on above: Order Comment: Speci men Type: BLOOD SPECIMEN Ordering Facility: [facility] Address: [address] [place] [address] Performed By: #### 1 825-9, 2063-07 #### [facility] CLIA [id number] [address] [place] [address] [place] Sodium [Moles/Vol] 138 mmol/L Normal 136-144 [facility] Comment on above: Order Comment: Speci men Type: BLOOD SPECIMEN Ordering Facility: [facility] Address: [address] [place] [address] Performed By: #### 1 8259, 2063-07 #### [facility] CLIA [id number] [address] [place] [address] [place] Urea nitrogen [Mass/Vol] 12 mg/dL Normal 7-21 [facility] Comment on above: Order Comment: Speci men Type: BLOOD SPECIMEN Ordering Facility: [facility] Address: [address] [place] [address] Performed By: #### 1 8259, 2063-07 #### [facility] CLIA [id number] [address] [place] [address] [place] FERRITINon 04-26-2024 Ferritin [Mass/Vol] 420.9 ng/mL High 14.7 - 2 05.1 ng/mL [facility] Ferritin SerPl-mCncon 2024 Ferritin [Mass/Vol] 420.9 ng/mL High 14.7-205.1 [facility] Comment on above: Order Comment: Speci men Type: BLOOD SPECIMEN Ordering Facility: [facility] Address: [address] [place] [address] Performed By: #### 1 825-9, 2063-07 #### [facility] CLIA [id number] [address] [place] [address] [place] Ferritin [Mass/Vol]on 2024 Interpretation and review of laboratory results Abnormal [facility] HAV IgM Ser Qlon 04-26-2024 HAV IgM Ql (S) Negative Normal Negative [facility] Comment on above: Order Comment: Speci men Type: BLOOD SPECIMEN Ordering Facility: [facility] Address: [address] [place] [address] Result Comment: No e vidence of recent infection with Hepatitis A virus. Performed By: #### 3 1204-1, 68426-5, 5194-3 #### [facility] CLIA [id number] [address] [place] [address] [place] HBV core IgM Ser Qlon 2024 HBV core IgM Ql (S) Negative Normal Negative [facility] Comment on above: Order Comment: Speci men Type: BLOOD SPECIMEN Ordering Facility: [facility] Address: [address] [place] [address] Result Comment: No e vidence of recent infection with Hepatitis B virus. Should recent infection be suspected, repeat testing may be considered 3-4 weeks after this draw. Performed By: #### 3 1204-1, 83830-4, 5194-3 #### [facility] CLIA [id number] [address] [place] [address] [place] HBV surface Ag Ser Qlon HBV surface Ag Ql (S) Negative Normal Negative [facility] Comment on above: Order Comment: Speci men Type: BLOOD SPECIMEN Ordering Facility: [facility] Address: [address] [place] [address] Performed By: #### 3 1204-1, 89721-8, 3 #### [facility] CLIA [id number] [address] [place] [address] [place] HCV Ab Ser Qlon 04-26-2024 HCV Ab Ql (S) Negative Normal Negative [facility] Comment on above: Order Comment: Speci men Type: BLOOD SPECIMEN Ordering Facility: [facility] Address: [address] [place] [address] Result Comment: The result suggests no evidence of active infection with Hepatitis C virus. Should recent infection be suspected, repeat testing may be considered 4-6 weeks after this draw. Performed By: #### 1 6128-1 #### [facility] CLIA [id number] [address] [place] [address] [place] Iron and Iron binding capaci ty panelon 04-26-2024 Interpretation and review of laboratory results Normal [facility] Iron [Mass/Vol] 105 ug/dL 41 - 186 ug/dL [facility] Iron binding capacity [Mass/Vol] 340 ug/dL 232 - 386 ug/dL [facility] Iron/TIBC [Molar ratio] 30.9 % 15.0 - 57.0 % [facility] Iron [Mass/Vol] 105 ug/dL Normal 41-186 [facility] Comment on above: Order Comment: Rl basilio Type: BLOOD SPECIMEN Ordering Facility: [facility] Address: [address] [place] [address] Performed By: #### 1 825-9, 2063-07 #### [facility] CLIA [id number] [address] [place] [address] [place] Iron binding capacity [Mass/Vol] 340 ug/dL Normal 232-386 [facility] Comment on above: Order Comment: Dionicioi men Type: BLOOD SPECIMEN Ordering Facility: [facility] Address: [address] [place] [address] Performed By: #### 1 825-9, 2063-07 #### [facility] CLIA [id number] [address] [place] [address] [place] Iron/TIBC [Molar ratio] 30.9 % Normal 15.0-57.0 [facility] Comment on above: Order Comment: Dionicioi men Type: BLOOD SPECIMEN Ordering Facility: [facility] Address: [address] [place] [address] Performed By: #### 1 , 2063-07 #### [facility] CLIA [id number] [address] [place], [place] [address] [address] [place] Laboratory - Hematology and Cell countson 04-26-2024 Basophils/100 WBC (Bld) 0.5 % [facility] Eosinophils/100 WBC (Bld) 0.1 % [facility] Erythrocyte distribution width (RBC) [Ratio] 12.5 % 11.5 - 15.0 % [facility] Hematocrit (Bld) [Volume fraction] 46.1 % High 36.0 - 46.0 % [facility] Hemoglobin (Bld) [Mass/Vol] 15.5 g/dL 11.5 - 15.5 g/dL [facility] Lymphocytes/100 WBC (Bld) 22.6 % [facility] MCHC (RBC) [Mass/Vol] 33.6 g/dL 30.5 - 36.0 g/dL [facility] MCV (RBC) [Entitic vol] 95.1 fL 80.0 - 100.0 fL [facility] Monocytes/100 WBC (Bld) 3.3 % [facility] Neutrophils/100 WBC (Bld) 70.8 % [facility] RBC (Bld) [#/Vol] 4.85 10*6/uL 3.90 - 5.2 0 m/uL [facility] Mitochondria Ab IF Ql (S)on 04-26-2024 Mitochondria M2 Ab IA Qn (S) 2.8 Units Normal <=20.0 [facility] Comment on above: Order Comment: Specmaribel basilio Type: BLOOD SPECIMEN Ordering Facility: [facility] Address: [address] [place] [address] Performed By: #### 1 , 2063-07 #### [facility] CLIA [id number] [address] [place], [place] [address] [place] Mitochondria M2 Ab Ql (S) Negative Normal Negative [facility] Comment on above: Order Comment: Rl basilio Type: BLOOD SPECIMEN Ordering Facility: [facility] Address: [address] [place] [address] Result Comment: Anti -mitochondrial antibody test is used as an aid in diagnosis of primary biliary cholangitis. Clinical correlation is required. Performed By: #### 1 825-9, 2064-4 #### [facility] CLIA [id number] [address] [place], [place] [address] [place] [address] [place] No Panel Informationon 04-26 [facility] Interpretation and review of laboratory results Abnormal [facility] PT panel Coag (PPP)on 2024 INR Coag (PPP) [Relative time] 0.9 {INR} 0.9 - 1.3 [facility] Comment on above: Vitamin K Antagonist (VKA) Therapeutic Range: INR 2 to 3 (Target INR of 2.5) Note: For patients treated with VKA drugs, such as warfarin, the [place] [employer] 2012 Guideline recommends [...] Chest 2012, 141:7S-47S Lit RA, et al. [facility] 2017, 70: 252-289 Interpretation and review of laboratory results Normal [facility] PT Coag (PPP) [Time] 10.6 s [facility] INR Coag (PPP) [Relative time] 0.9 {INR} Normal 0.9-1.3 [facility] Comment on above: Order Comment: Speci men Type: BLOOD SPECIMEN Ordering Facility: [facility] Address: [address] [place] [address] Result Comment: Maya min K Antagonist (VKA) Therapeutic Range: INR 2 to 3 (Target INR of 2.5) Note: For patients treated with VKA drugs, such as warfarin, the [place] [employer] 2012 Guideline recommends [...] Chest 2012, 141:7S-47S Lit RA, et al. [facility] 2017, 70: 252-289 Performed By: #### 3 4528-0 #### [facility] CLIA [id number] [address] [place] [address] [place] PT Coag (PPP) [Time] 10.6 s Normal 9.7-13.0 [facility] Comment on above: Order Comment: Rl basilio Type: BLOOD SPECIMEN Ordering Facility: [facility] Address: [address] [place] [address] Performed By: #### 3 4528-0 #### [facility] [place] [id number] [address] [place] [address] [place] Smooth muscle Ab Ql (S)on ACTIN SMOOTH MUSCLE IGG QUALITATIVE Negative Normal Negative [facility] Comment on above: Order Comment: Rl basilio Type: BLOOD SPECIMEN Ordering Facility: [facility] Address: [address] [place] [address] Performed By: #### 1 8208-30, 2063-07 #### [facility] CLIA [id number] [address] [place] [address] [place] ACTIN SMOOTH MUSCLE IGG QUANTITATIVE 5 Units Normal <20 [facility] Comment on above: Order Comment: Rl basilio Type: BLOOD SPECIMEN Ordering Facility: [facility] Address: [address] [place] [address] Performed By: #### 1 8259, 2063-07 #### [facility] CLIA [id number] [address] [place] [address] [place] ECHOon 04-09-2024 Echocardiography Echocardiography Report: Transthoracic Echo [facility] Date of service: 04/09/2024 3:28:57 PM Ordering physician: SOLO MORA Indication: Syncope Technologist: Josephine West RD Interpreting physician: Sheri Ac MD PATIENT: Name: [...] * * Final * * * CC GetNotes Medical Image : [id number] [facility] [place] 04-05-2024 HUYEN Telephone (CARDMN) REJI HARPERSICA A ([id number]) 1990 F Date Time Provider Department 04/05/24 SOLO MORA During your visit today, we recorded the following information about you: LodiCriss Anderson 04/05/2024 1:02 PM Signed Outside ep I have a copy @ my desk Criss Velez 04/09/2024 11:49 AM Signed April 09, 2024 Patient Contact Number: [phone] Patient last seen within the last year: Yes 12/15 Reason For Call: Test Results Zio- 12/2023 Physician: Dr. Mora Patient was informed that non-urgent calls may be returned within the next three business days. Yes Joy Dahl RN 04/09/2024 2:14 PM Signed Cardiac clearance and office noted faxed to [facility]. In regards to Zio monitor. Dr Mora [...] Medical Records [3576] Cmt: Cardio Clearance [facility] Results [95] Cmt: Zio Prescriptions as of [...] Status:Closed by CRISS MCCRARY on 04/05/24 Normal [facility] HEMOGLOBIN A1con 04-04-2024 HEMOGLOBIN A1c 5.5 [...] diagnosis of diabetes in children. According to [place] [employer] (ADA) guidelines, hemoglobin A1c <7.0% represents optimal control in non- diabetic patients. Different metrics may apply to specific patient populations. Standards of Medical Care in Diabetes(ADA). Performed By: #### 4 96 733 #### [facility] [address] Maintenance Man: Tim Dotson MD POTASSIUMon 04-04-2024 Potassium [Moles/Vol] 3.7 mmol/L Normal 3.5-5.[address] [facility] Comment on above: Order Comment: FASTI NG:YES FASTING: YES Performed By: #### 4 96, 293 #### [facility] [address], [address] [place], [place] [id number] Maintenance Man: Tim Stark 04-02-2024 CNPN Telephone (CARDMN) ORION HARPER ([id number]) 1990 F Date Time Provider Department 04/02/24 ANASOLO ENNIS JESUS During your visit today, we recorded the following information about you: Criss Mccrary 04/02/2024 3:53 PM Signed This 'Ankle Surgery Clearance' was faxed over to Dr. Giovani Carrillojeane Hagen (PCP) @ [phone] for signing. I spoke with the patient. [...] Received Outside Medical Records [[id number]] Cmt: [facility] Prescriptions as of 04/02/2024 - amphetamine-dextroamp hetamine [...] Status:Closed by CRISS MCCRARY on 04/02/24 Normal [facility] IGP,APTIMA HPV,AGE GDLNon AGE GDLN ACOG TESTING Note . [facility] Comment on above: TESTS RESULT FLAG UN ITS REF RANGE LAB Clinician Provided Cytology Information Source.............Vagina No. of containers..01 ThinPrep Vial Age Skip FERNANDES Starla... FLAG LEGEND: L-Low Normal,H-High Normal,LL-Alert Low,HH-Alert High <-Panic Low,>-Panic High,A-Abnormal,AA-Critical Abnormal Performed at: 01 =[address] [address] Zoraida Hawkins MD, HPV APTIMA Negative Negative [facility] Comment on above: This nucleic acid am plification test detects fourteen high- risk HPV types (16,18,31,33,35,39,45,51,52,56,58,59,66,68) without differentiation. Performed at: =[address] [id number] Manager Wound Care: Zoraida Hawkins MD, Phone: [phone] Performed at: [address] [id number] Manager Wound Care: Zoraida Hawkins MD, Phone: [phone] IGP, APTIMA HPV, RFX 16/18,45 Note . [facility] Comment on above: TESTS RESULT FLAG UN ITS REF RANGE LAB DIAGNOSIS: 02 NEGATIVE FOR INTRAEPITHELIAL LESION OR MALIGNANCY. Specimen adequacy: 02 Satisfactory for evaluation. Performed by: 02 Zehra Brush, Hand Tile Maker (ASCP) . 02 Note: Note 02 The [...] Low,>-Panic High,A-Abnormal,AA-Critical Abnormal Performed at: [address] [address] Zoraida Hawkins MD, SP[facility] ALL CBC WITH AUTO DIFFon BASOPHILS ABSOLUTE AUTO 0.0 [facility] Basophils/100 WBC (Bld) 0.4 % 0.2 - 2.0 % [facility] Eosinophils/100 WBC (Bld) 2.8 % 0.9 - 7.0 % [facility] Erythrocyte distribution width (RBC) [Ratio] 12.4 % 11.0 - 15.0 % [facility] Hematocrit (Bld) [Volume fraction] 41.9 % 36.0 - 48.0 % [facility] Hemoglobin (Bld) [Mass/Vol] 14.2 g/dL 12.0 - 16.0 g/dL [facility] IMMATURE GRANULOCYTES ABS AUTO 0.03 [facility] Immature granulocytes/100 WBC (Bld) 0.4 % 0.0 - 0.5 % [facility] LYMPHOCYTES ABSOLUTE AUTO 2.8 [facility] Lymphocytes/100 WBC (Bld) 35.6 % 20.5 - 60.0 % [facility] MCH (RBC) [Entitic mass] 32.1 pg 26.7 - 34.0 pg [facility] MCHC (RBC) [Mass/Vol] 33.9 g/dL 29.9 - 35.2 g/dL [facility] MCV (RBC) [Entitic vol] 94.8 fL 81.0 - 99.0 fL [facility] MONOCYTES ABSOLUTE AUTO 0.5 [facility] Monocytes/100 WBC (Bld) 6.0 % 1.7 - 12.0 % [facility] NEUTROPHILS ABSOLUTE AUTO 4.3 [facility] Neutrophils/100 WBC (Bld) 54.8 % 43.0 - 75.0 % [facility] Platelet mean volume (Bld) [Entitic vol] 10.4 fL 9.5 - 13.5 fL [facility] TBH EO # 0.2 [facility] TBH PLT 265 [facility] TB RBC 4.42 [facility] TB WBC 7.8 [facility] Extra Lavender Tubeon 2022 Extra Lavender Tube Normal [facility] Comment on above: Performed By: #### X LAV, LIVP, LIP #### [facility] Lab [address] [place], [place] [id number] Manager Wound Care: Ronald Pearce MD Lipaseon 03-24-2023 Lipase [Catalytic activity/Vol] 260 U/L High 13-60 [facility] Comment on above: Performed By: #### X LAV, LIVP, LIP #### [facility] Lab [address] [facility]. [place], [place] [id number] Manager Wound Care: Ronald Pearce MD Liver Profileon 03-24-2023 Albumin [Mass/Vol] 3.5 g/dL Normal 3.5-5.2 [facility] Comment on above: Performed By: #### X LAV, LIVP, LIP ####[facility] [address] [place] [address] Lab Director: Ronald Pearce MD Alkaline Phos 321 U/L High 35-104 [facility] Comment on above: Performed By: #### X LAV, LIVP, LIP ####[facility] [address] [facility] [place] [phone] Director: Ronald Pearce MD ALT [Catalytic activity/Vol] 137 U/L High 5-33 [facility] Comment on above: Performed By: #### X LAV, LIVP, LIP ####[facility] [address] [facility] [place] [phone] Director: Ronald Pearce MD AST [Catalytic activity/Vol] 60 U/L High <32 [facility] Comment on above: Performed By: #### X LAV, LIVP, LIP ####[facility] [address] [facility] [place] [address] Lab Director: Ronald Pearce MD Bilirubin [Mass/Vol] 1.0 mg/dL Normal 0.3-1.2 [facility] Comment on above: Performed By: #### X LAV, LIVP, LIP ####[facility] [id number] [place] [address].[place] [address] Lab Director: Ronald Pearce MD Bilirubin, Indirect 0.4 mg/dL Normal 0.0-1.0 [facility] Comment on above: Performed By: #### X LAV, LIVP, LIP ####[facility] [address] [facility] [place] [phone] Director: Ronald Pearce MD Bilirubin.indirect [Mass/Vol] 0.6 mg/dL High <0.3 [facility] Comment on above: Performed By: #### X LAV, LIVP, LIP ####[facility] [address] [facility] [place] [address] lab Director: Ronald Pearce MD Protein [Mass/Vol] 5.7 g/dL Low 6.4-8.3 [facility] Comment on above: Performed By: #### X LAV, LIVP, LIP ####[facility] [id number] [place] [address] lab Director: Ronald Pearce MD Extra Lavender Tubeon 2022 Extra Lavender Tube Normal [facility] Comment on above: Performed By: #### L IVP, XLAV ####[facility] [address] [facility] [place] [address] lab Director: Ronald Pearce MD FL CHOLANGIOGRAM [...] Danny Cole MD 03/23/23 Final result Normal [facility] Liver Profileon 03-23-2023 Albumin [Mass/Vol] 3.5 g/dL Normal 3.5-5.2 [facility] Comment on above: Performed By: #### L IVP, XLAV ####[facility] [address] [facility] [place] [address] lab Director: Ronald Pearce MD Alkaline Phos 293 U/L High 35-104 [facility] Comment on above: Performed By: #### L IVP, XLAV ####[facility] [address] [place] [address] Lab Director: Ronald Pearce MD ALT [Catalytic activity/Vol] 111 U/L High 5-33 [facility] Comment on above: Performed By: #### L IVP, XLAV ####[facility] [address] [place] [address] Lab Director: Ronald Pearce MD AST [Catalytic activity/Vol] 43 U/L High <32 [facility] Comment on above: Performed By: #### L IVP, XLAV ####[facility] [address] [place] [address] Lab Director: Ronald Pearce MD Bilirubin [Mass/Vol] 2.6 mg/dL High 0.3-1.2 [facility] Comment on above: Performed By: #### L IVP, XLAV ####[facility] [address] [place] [address] Lab Director: Ronald Pearce MD Bilirubin, Indirect 0.8 mg/dL Normal 0.0-1.0 [facility] Comment on above: Performed By: #### L IVP, XLAV ####[facility] [address] [place] [address] Lab Director: Ronald Pearce MD Bilirubin.indirect [Mass/Vol] 1.8 mg/dL High <0.3 [facility] Comment on above: Performed By: #### L IVP, XLAV ####[facility] [address] [place] [address] Lab Director: Ronald Pearce MD Protein [Mass/Vol] 5.7 g/dL Low 6.4-8.3 [facility] Comment on above: Performed By: #### L IVP, XLAV ####[facility] [id number] [place] [address] lab Director: Ronald Pearce MD Surgical Pathology Reporton 03-23-2023 Surgical Pathology Report (NOTE) Path Number: [id number] -- Diagnosis -- A. GALLBLADDER AND CONTENTS, [...] lesions or periductal lymph nodes are identified. Demonstrator Knitting sections 1c. tm SM/tb1:03/24/2023 Microscopic Description Microscopic examination performed. Processing Lab: [address] [address] Interpretation Performed at [place] [id number] SURGICAL PATHOLOGY CONSULTATION Patient Name: ORION HARPER Med Rec: [id number] [employer] [facility] ANATOMIC PATHOLOGY [address] [place] [address]. [place], [place] [address] Normal [facility] CBC with Diffon 03-22-2023 Abs. Basophil <0.03 Normal 0.00-0.20 [facility] Comment on above: Performed By: #### C DP, LIP, CMPX #### [facility] Lab [address] [place] [address] Manager Wound Care: Ronald Pearce MD #### TRIG #### [address] [address] Manager Wound Care: Elio Marley MD Abs.Imm.Granulocyte 0.03 k/uL Normal 0.00-0.30 [facility] Comment on above: Performed By: #### C DP, LIP, CMPX #### [facility] Lab [address] [place] [address] Manager Wound Care: Ronald Pearce MD #### TRIG #### [address] [address] Manager Wound Care: Elio Marley MD Abs.Neutrophil (Seg) 6.89 k/uL Normal 1.50-8.10 [facility] Comment on above: Performed By: #### C DP, LIP, CMPX #### [facility] Lab [facility] [place] [address] Manager Wound Care: Ronald Pearce MD #### TRIG #### [address] [address] Manager Wound Care: Elio Marley MD Basophils/100 WBC (Bld) 0 % Normal 0-2 [facility] Comment on above: Performed By: #### C DP, LIP, CMPX #### [facility] Lab [facility] [place] [address] Manager Wound Care: Ronald Pearce MD #### TRIG #### [address] [address] Manager Wound Care: Elio Marley MD Eosinophils (Bld) [#/Vol] 0.07 10*3/uL Normal 0.00-0.44 [facility] Comment on above: Performed By: #### C DP, LIP, CMPX #### [facility] Lab [address] [place] [address] Manager Wound Care: Ronald Pearce MD #### TRIG #### [address] [address] Manager Wound Care: Elio Marley MD Eosinophils/100 WBC (Bld) 1 % Normal 1-4 [facility] Comment on above: Performed By: #### C DP, LIP, CMPX #### [facility] Lab [address] [place] [address] Manager Wound Care: Ronald Pearce MD #### TRIG #### [address] [address] Manager Wound Care: Elio Marley MD Erythrocyte distribution width (RBC) [Ratio] 12.2 % Normal 11.8-14.4 [facility] Comment on above: Performed By: #### C DP, LIP, CMPX #### [facility] Lab [address] [place] [address] Manager Wound Care: Ronald Pearce MD #### TRIG #### [address] [address] Manager Wound Care: Elio Marley MD Hematocrit (Bld) [Volume fraction] 36.9 % Normal 36.3-47.1 [facility] Comment on above: Performed By: #### C DP, LIP, CMPX #### [facility] Lab [address] [place] [address] Manager Wound Care: Ronald Pearce MD #### TRIG #### [address] [address] Manager Wound Care: Elio Marley MD Hemoglobin (Bld) [Mass/Vol] 12.1 g/dL Normal 11.9-15.1 [facility] Comment on above: Performed By: #### C DP, LIP, CMPX #### [facility] Lab [address] [place] [address] Manager Wound Care: Ronald Pearce MD #### TRIG #### [address] [address] Manager Wound Care: Elio Marley MD Immature granulocytes/100 WBC (Bld) 0 % Normal 0 [facility] Comment on above: Performed By: #### C DP, LIP, CMPX #### [facility] Lab [address] [place] [address] Manager Wound Care: Ronald Pearce MD #### TRIG #### [address] [address] Manager Wound Care: Elio Marley MD Lymphocytes (Bld) [#/Vol] 1.62 10*3/uL Normal 1.10-3.70 [facility] Comment on above: Performed By: #### C DP, LIP, CMPX #### [facility] Lab [address] [place] [address] Manager Wound Care: Ronald Pearce MD #### TRIG #### [address] [address] Manager Wound Care: Elio Marley MD Lymphocytes/100 WBC (Bld) 18 % Low 24-43 [facility] Comment on above: Performed By: #### C DP, LIP, CMPX #### [facility] Lab [address] [place] [address] Manager Wound Care: Ronald Pearce MD #### TRIG #### [address] [address] Manager Wound Care: Elio Marley MD MCH (RBC) [Entitic mass] 32.5 pg Normal 25.2-33.5 [facility] Comment on above: Performed By: #### C DP, LIP, CMPX #### [facility] Lab [address] [place] [address] Manager Wound Care: Ronald Pearce MD #### TRIG #### [address] [address] Manager Wound Care: Elio Marley MD MCHC (RBC) [Mass/Vol] 32.8 g/dL Normal 28.4-34.8 [facility] Comment on above: Performed By: #### C DP, LIP, CMPX #### [facility] Lab [address] [place] [address] Manager Wound Care: Ronald Pearce MD #### TRIG #### [address] [address] Manager Wound Care: Elio Marley MD MCV (RBC) [Entitic vol] 99.2 fL Normal 82.6-102.9 [facility] Comment on above: Performed By: #### C DP, LIP, CMPX #### [facility] Lab [address] [place] [address] Manager Wound Care: Ronald Pearce MD #### TRIG #### [address] [address] Manager Wound Care: Elio Marley MD Monocytes (Bld) [#/Vol] 0.57 10*3/uL Normal 0.10-1.20 [facility] Comment on above: Performed By: #### C DP, LIP, CMPX #### [facility] Lab [address] [place] [address] Manager Wound Care: Ronald Pearce MD #### TRIG #### [address] [address] Manager Wound Care: Elio Marley MD Monocytes/100 WBC (Bld) 6 % Normal 3-12 [facility] Comment on above: Performed By: #### C DP, LIP, CMPX #### [facility] Lab [address] [place] [address] Manager Wound Care: Ronald Pearce MD #### TRIG #### [address] [address] Manager Wound Care: Elio Marley MD Neutrophil (Seg) 75 % High 36-65 [facility] Comment on above: Performed By: #### C DP, LIP, CMPX #### [facility] [address] [place] [address] Manager Wound Care: Ronald Pearce MD #### TRIG #### [address] [phone] Manager Wound Care: Elio Marley MD NRBC Automated 0.0 per 100 WBC Normal 0.0 [facility] Comment on above: Performed By: #### C DP, LIP, CMPX #### [facility] Lab [address] [place] [address] Manager Wound Care: Ronald Pearce MD #### TRIG #### [address] [address] Manager Wound Care: Elio Marley MD Platelet mean volume (Bld) [Entitic vol] 10.7 fL Normal 8.1-13.5 [place] Comment on above: Performed By: #### C DP, LIP, CMPX #### [facility] [address] [place] [address] Manager Wound Care: Ronald Pearce MD #### TRIG #### [address] [address] Manager Wound Care: Elio Marley MD Platelets (Bld) [#/Vol] 188 10*3/uL Normal 138-453 [facility] Comment on above: Performed By: #### C DP, LIP, CMPX #### [facility] Lab [facility] [place] [address] Manager Wound Care: Ronald Pearce MD #### TRIG #### [address] [address] Manager Wound Care: Elio Marley MD RBC (Bld) [#/Vol] 3.72 10*6/uL Low 3.95-5.11 [facility] Comment on above: Performed By: #### C DP, LIP, CMPX #### [facility] [address] [place] [address] Manager Wound Care: Ronald Pearce MD #### TRIG #### [address] [address] Manager Wound Care: Elio Marley MD WBC (Bld) [#/Vol] 9.2 10*3/uL Normal 3.5-11.3 [facility] Comment on above: Performed By: #### C DP, LIP, CMPX #### [facility] Lab [address] [place] [address] Manager Wound Care: Ronald Pearce MD #### TRIG #### [address] [address] Manager Wound Care: Elio Marley MD Comp Metabolic Pr/rfx MGon 1 05-22-2022 Albumin [Mass/Vol] 3.5 g/dL Normal 3.5-5.2 [facility] Comment on above: Performed By: #### C DP, LIP, CMPX #### [facility] [address] [place] [address] Manager Wound Care: Ronald Pearce MD #### TRIG #### [address] [address] Manager Wound Care: Elio Marley MD Alkaline Phos 157 U/L High 35-104 [facility] Comment on above: Performed By: #### C DP, LIP, CMPX #### [facility] Lab [address] [place] [address] Manager Wound Care: Ronald Pearce MD #### TRIG #### [address] [address] Manager Wound Care: Elio Marley MD ALT [Catalytic activity/Vol] 131 U/L High 5-33 [facility] Comment on above: Performed By: #### C DP, LIP, CMPX #### [facility] Lab [address] [place] [address] Manager Wound Care: Ronald Pearce MD #### TRIG #### [address] [address] Manager Wound Care: Elio Marley MD Anion gap [Moles/Vol] 11 mmol/L Normal 9-17 [facility] Comment on above: Performed By: #### C DP, LIP, CMPX #### [facility] [address] [place] [address] Manager Wound Care: Ronald Pearce MD #### TRIG #### [address] [address] Manager Wound Care: Elio Marley MD AST [Catalytic activity/Vol] 34 U/L High <32 [facility] Comment on above: Performed By: #### C DP, LIP, CMPX #### [facility] [address] [place] [address] Manager Wound Care: Ronald Pearce MD #### TRIG #### [place] [address] [place] [address] Manager Wound Care: Elio Marley MD Bilirubin [Mass/Vol] 1.9 mg/dL High 0.3-1.2 [facility] Comment on above: Performed By: #### C DP, LIP, CMPX #### [facility] [address] [place] [address] Manager Wound Care: Ronald Pearce MD #### TRIG #### [address] [phone] Manager Wound Care: Elio Marley MD BUN/CRE Ratio 17 Normal 9-20 [facility] Comment on above: Performed By: #### C DP, LIP, CMPX #### [facility] [address] [place] [address] Manager Wound Care: Ronald Pearce MD #### TRIG #### [address] [phone] Manager Wound Care: Elio Marley MD Calcium [Mass/Vol] 8.1 mg/dL Low 8.6-10.4 [facility] Comment on above: Performed By: #### C DP, LIP, CMPX #### [facility] [address] [place] [address] Manager Wound Care: Ronald Pearce MD #### TRIG #### [address] [phone] Manager Wound Care: Elio Marley MD Chloride [Moles/Vol] 105 mmol/L Normal 98-107 [facility] Comment on above: Performed By: #### C DP, LIP, CMPX #### [facility] [address] [place] [address] Manager Wound Care: Ronald Pearce MD #### TRIG #### [address] [address] Manager Wound Care: Elio Marley MD CO2 [Moles/Vol] 21 mmol/L Normal 20-31 [facility] Comment on above: Performed By: #### C DP, LIP, CMPX #### [facility] [address] [place] [address] Manager Wound Care: Ronald Pearce MD #### TRIG #### [address] [address] Manager Wound Care: Elio Marley MD Creatinine [Mass/Vol] 0.6 mg/dL Normal 0.5-0.9 [facility] Comment on above: Performed By: #### C DP, LIP, CMPX #### [facility] [address] [place] [address] Manager Wound Care: Ronald Pearce MD #### TRIG #### [address] [address] Manager Wound Care: Elio Marley MD GFR/1.73 sq M.predicted among non-blacks MDRD (S/P/Bld) [Vol rate/Area] mL/min/{1.73_m2} Normal >60 [facility] Comment on above: Result Comment: These [...] C DP, LIP, CMPX #### [facility] [address] [place] [address] Manager Wound Care: Ronald Pearce MD #### TRIG #### [address] [address] Manager Wound Care: Elio Marley MD Glucose [Mass/Vol] 75 mg/dL Normal 70-99 [facility] Comment on above: Performed By: #### C DP, LIP, CMPX #### [facility] [address] [place] [address] Manager Wound Care: Ronald Pearce MD #### TRIG #### [address] [address] Manager Wound Care: Elio Marley MD Potassium [Moles/Vol] 4.0 mmol/L Normal 3.7-5.3 [facility] Comment on above: Performed By: #### C DP, LIP, CMPX #### [facility] [address] [place] [address] Manager Wound Care: Ronald Pearce MD #### TRIG #### [address] [address] Manager Wound Care: Elio Marley MD Protein [Mass/Vol] 5.7 g/dL Low 6.4-8.3 [facility] Comment on above: Performed By: #### C DP, LIP, CMPX #### [facility] [address] [place] [address] Manager Wound Care: Ronald Pearce MD #### TRIG #### [address] [address] Manager Wound Care: Elio Marley MD Sodium [Moles/Vol] 137 mmol/L Normal 135-144 [facility] Comment on above: Performed By: #### C DP, LIP, CMPX #### [facility] [address] [place] [address] Manager Wound Care: Ronald Pearce MD #### TRIG #### [place] [address] [place] [address] Manager Wound Care: Elio Marley MD Urea nitrogen [Mass/Vol] 10 mg/dL Normal 6-20 [facility] Comment on above: Performed By: #### C DP, LIP, CMPX #### [facility] [address] [place] [address] Manager Wound Care: Ronald Pearce MD #### TRIG #### [address] [address] Manager Wound Care: Elio Marley MD K (Potassium)on 03-22-2023 Potassium [Moles/Vol] 3.8 mmol/L Normal 3.7-5.3 [facility] Comment on above: Performed By: #### K #### [facility] [address] [place] [address] Manager Wound Care: Ronald Pearce MD Lipaseon 03-22-2023 Lipase [Catalytic activity/Vol] 198 U/L High 13-60 [facility] Comment on above: Performed By: #### C DP, LIP, CMPX #### [facility] [address] [place] [address] Manager Wound Care: Ronald Pearce MD #### TRIG #### [address] [address] Manager Wound Care: Elio Marley MD MRI ABDOMEN WO CONTRAST [...] Daniel Hooker MD 03/22/23 Final result Normal [facility] Triglycerideson 03-22-2023 Triglyceride [Mass/Vol] 102 mg/dL Normal 0-149 [facility] Comment on above: Result Comment: Triglyceride Guidelines: <150 Desirable 150-199 Borderline 200-499 High >499 Very high Based on AHA Guidelines for fasting triglyceride, January 2012. Performed By: #### C DP, LIP, CMPX #### [facility] [address] [place], [place] [phone] Manager Wound Care: Ronald Pearce MD #### TRIG #### [facility] [address] [place], [place] [phone] Manager Wound Care: MD Lincoln Gordillo 03-20-2023 ISABEL Telephone (FVPRAD) ORION HARPER ([id number]) 1990 F Date Time Provider Department 03/20/23 [...] Status:Closed by CHARLETTE CAMPUZANO on 03/20/23 Normal [facility] Ferritin [Mass/volume] in Se rum or PlasmaOrdered By: Erwin Hylton on 10-26-2022 Ferritin [Mass/Vol] 106.5 ng/mL 11.0-306.8 [facility] [place] GASTRIC EMPTYING SOLIDon 09-12-2022 [facility] Stomach Views for gastric emptying solid phase W radionuclide Izabella 09-12-2022 IMPRESSION: EVIDENCE OF DELAYED RATE OF GASTRIC EMPTYING OF SOLID MEAL. ABNORMAL STUDY: 36-50% RETENTION AT 4 HOURS IS CONSISTENT WITH SEVERE GASTROPARESIS. Policy Writer Typist: PSCB Transcribe Date/Time: Sep 12 2022 3:02P Dictated by : LUZ MARINA VÁZQUEZ MD This examination was interpreted and the report reviewed and electronically signed by: LUZ MARINA VÁZQUEZ MD on Sep 12 2022 3:05PM [facility] * * *Final Report* * * DATE OF EXAM: Sep 12 2022 2:44PM [facility] 0017 - CT GASTRIC EMPTYING SOLID / PROCEDURE REASON: Nausea [...] 2022 2:44PM [facility] 0017 - [place] GASTRIC EMPTYING SOLID [...] 4 HOURS IS CONSISTENT WITH SEVERE GASTROPARESIS. Policy Writer Typist: PSCB Transcribe Date/Time: Sep 12 2022 3:02P Dictated by : LUZ MARINA VÁZQUEZ MD This examination was interpreted and the report reviewed and electronically signed by: LUZ MARINA VÁZQUEZ MD on Sep 12 2022 3:05PM [facility] Radiology Study observation (narrative) [facility] Stomach Views for gastric emptying solid phase W radionuclide POOrdered By: Ccf Provider on 09-12-2022 [facility] EGD Study observation Miguelito dominguezmaki 09-02-2022 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 [...] the gastric (more content not included)... [facility] SURGICAL PATHOLOGYOrdered By : Padilla Jasmine on 09-01-2022 Case Report Surgical Pathology Report Case: [id number] Authorizing Provider: Carol Winn MD Collected: 08/31/2022 03:04 PM Ordering Location: Ambulatory Surgery Received: 08/31/2022 09:20 PM Pathologist: Padilla Jasmine MD Specimens: A) - SMALL INTESTINE BIOPSY, r/o celiac B) - ANTRUM (STOMACH) BIOPSY, r/o hpylori C) - STOMACH BIOPSY, gastric body r/o hpylori [facility] Work Phone: Diagnosis Comment c8bwdMPsUTUknUVgQTUj N YvldgUoXFWwqHPeE2Hmhy ndMJdbYA4rQX6dqRhbtFZ hrMYgAMUcTqFmh4lsu711 oYWcu9gvHJTOsaykuYs7c JoeB49mi1B8VxgaF95wdM CfYGB9IPIdETEjwKLzVPY eTAI9FWQumSSjA6guFWRh XR8srydtCLyaDJmzZFNoi EP1FRMnbUUxU4DeBNUdUW bqQTLvpqt2OqGxRb0hhDD yeTcyMFxwYXJkXHBsYWlu MGRmRoPvEEtjyr3bI26uu RSxXNwmlOwcYBIsf88ks7 qfl0AshS22YQR5LUQuxUb ldAIeSFNdmPx2LTG0fUVg FFkwaJvxkVT2L3h3TOfnj HJhZXBpdGhlbGlhbCBseW 9kuQ7kaWIzs5adYhMGbNL hMZQteS3wwV9qetIhlbUb vi41OVLtcJnjYAc3AEGqD WNpZmljOyBkaWZmZXJlbn ZkXPuhO05tl4hbGVJvqGn mybScq274yVJrpS5drLXf ZSBsYXRlbnQgIGNlbGlhY bGvpPJ2BDocDNOmmFJ5rM UkvgWfATWmEYZiBl0biUe hQFQHE9PHAZLoTR0qFQuy YcQbtEdryTDxR2JnpXJxH E24IEIgrRgmPJqohtWylF RpbmcgSGVsaWNvYmFjdGV zTSQ1zD3qsQjdFM8akgbn r2EwDWCdZnHpH45zlyCcO XBpTYptsXxex7Maw1eoH8 oxa2C0UKissp3jrGPpoB= = [facility] Work Phone: FINAL DIAGNOSIS b0iubFUjLDSsoUOlCACb N JicntQaBKPhsYIkF0Rzcf gaRWevOO5sQV0suLtfdIF hdCMtPIHjTsXxt4byz248 yJOdl0vaYRUOnxnbbVy9g EzaB26fn8J6VbesP51jlO LxVEO1ODTqGBHfqQBkNBN hXLJ9KKGbwKFiQ0dwILAr RC2tprsoTBxjEVwwDEMyh TV8NUZoqOZvL9GvGPTqHT fdEWWsvfk7SaTyNk5ooXA yeTcyMFxwYXJkXHBsYWlu XKFsEpOqBS7sSSAmJYsdF GludGVzdGluZSwgYmlvcH A9WtuskY6kJQ1NcWFdxCH ktmRvu3WqiaPbMR48C69r WKY4kBBtMG3vvi0leVF2p Fkoe1UzGONoV9bmnTOogG XoBMGkxrUns7ynN8m7P8B hdGNoeSBpbmNyZWFzZSBp biBpbnRyYWVwaXRoZWxpY AuolQxayRgsK1z7AGTxeO akRFxwnF6cYNRdNMMNxK3 cEQAiEEDvlqQgmF1lFEFv y5SsiYhzeYkmAOYgUVFix DDeVnZuuIWaTLD2jO7diG Xcx0JbT1pkuWLpKRIvwq6 nxIFjSMX8bMIjKAzww4Hv sIXyy4hgcW5wFW7Gf0Qei Fp8OQMwe9YyKOTlhJLlYp XhlUDhYDO6tU5jcCRrfqi gdvpqhDDoj59pci32oYbb KTPglRFhfgwnC1aojI4cT BdhvsOtMh4wFGQ5d58bI7 cuWNGdGEhqXLMnb4JpkBm cbGluZSAtSGVsaWNvYmFj qUKrPUP5hW1gwLNnh9JhR 2nukAPrIZSxzm6bxBJfSX H7zHVsRGfoe1VxiYZrn2x kjO4iAU7Rr6MxuNf4JWTe v3ZzMZSzsFHxHqKikPFuC VK1tE1fvPFaeuhbokgjyV Tvt65myf08vGtaKLHggME wbkrgD8fwSLY9 [facility] Work Phone: Gross Description e3pqtCNpEJPcmISERZBv M ADpUF1xeTavfGu6mWysPV IhxpC9eXGhVHvzt1rzNOZ 2b2tjiwOXNkfmOGFcQRbi RJAvfvmwTzQ4TFtxSSHhr bjyZSu7ZUwlHLFdsQX9PP SvwNHuA2ByHIPmRS0nnhv 6OUC6VNwwGCWrGnR3SAKc QeIjOfzuFFa6SXKztuU8E ky8XCTbIIMupWCdd4L7DV hmsckqGLZlaYAqK638QDx cp2DilUEhVXrqfTZuPJRP FglpAcafcHyaf9SfjIKuJ GlkIDUxMDAwIFxcbmggXF q8MBSbLScrgCXsKQ1ghJq dPqiahGvll7EpkNNmYQli XILhOCGwGQfgFKZxYC3NR rEoPONsFZA3NTxtLcF3WR z2VSHOPlBkQkXgAyMhGIY hQoHyGGo1DOf7RPpXQzSe AVQdCaZgAHHpPpX1ZXkfK yBcXHQgMiBcXGYgQXJpYW haRMpgpKTiDI1nkEqyrLT pbiBBLiBTTUFMTCBJTlRF O8ZGEaUeAiiPPDPSEHGjd iANClxlcGljTmVzdERvYz EgDQpcbHRycGFyXGxpbjB ccmluMCANClxsdHJjaFxm boVvNRKlS5CojdWeFRcrX JRbjx5daJvcXUFdNLHzfY z8lKBdNSPitSCaSQXpa4V sxBSwVWAac2T6ZYIhq3N7 VQCbS8apKZwfnSegVnL4x yAxLjAgeCAwLjIgeCAwLj GzL43gYWAhiDNkiVhoj1H oyIy5yYTsFQcyWO8xCETs CJNqYEZ7EB7kvTszRALHG lxlcGljTmVzdERvYzBcdj A7ZTSreAJkRCR4TV5gXLL plmnlGYHwYQPmRBE6INyb sP00hRMnTJEgWOZduNClb VxwbGFpbiANCntcKlxlcG vzh7UecOToZXafYMPzUZE bUMizSJVtDP0VUdVwKEQj SII7CJrwTmP5SUg3LHHWO lMgIiAgMzExNDIyNzQiID p0SPp0CTxVOhHzCDNfJlN hQBG4JEH0DIwfSrKhFBKb MiBcXGYgQXJpYWwgXFxmb TFkNQ8vuGjgzFXjmnqqfp Y2TATsDSlfTKDvCWVIJMS XXXZgH4HCDMQVJEzkSguF UFNZXHBhciANClxlcGljT mVzdERvYzEgDQpcbHRycG FyXGxpbjBccmluMCANClx lgRHviZqlbbAvIGFsF5Gl tqXlOUidNSOlak0tkKiuS UAvYEPvgSy6iAZtDTBnlI QdOZWoy6DtwEBuOYIrf0B 6BGYim8H4FFTnG9stXXhn cQilKmP0whWpReTtmGMzR cLxzIDsYpVtC19xHGMpgR GkuYacb6LyqJs5jDYbSHi rFY2dZHPaQXZaSKE8MC6x bGluZSANClxlcGljTmVzd TOmZgNwbtO0JYEzjDUhQU P4NG3xGNRiprzsYAVcXZL bUND9XHdcxS04iOGdWUFx MTZccGFyfVxwbGFpbiANC qpxXuojaFzvo4QxzBLyBT lkIDUxMDAyIFxcZGIgIE9 EKpHiZETsOPA4YSmjHaC1 GQk2YJBXVeOnCiQxAzAzE UEbKuJlVLs7JWy6ZUxSRi VjDTUdEuExMVq2PkK2JXd yNyBcXHQgMiBcXGYgQXJp IYnqZIvohUNtTO5zlRrzl MPjkcrtuiD9KXNnYXzvXT ZtNNXSP90FA2qeOyzIYIY ZXHBhciANClxlcGljTmVz dERvYzEgDQpcbHRycGFyX GxpbjBccmluMCANClxsdH KnoBgshoZvHLBwV9YjzlR hOOjnDELbnb4nzHyuJRKb GKIczNm7qNJkTPLefJLtM AJvx6BqvSEmBPRgy2C6DW Vce5R5UPXzB5ihZBmlwEa lHnD0foMcDkgxlZKvQqNx eOBsBvHoK09yBBJmcLBck Tgnq4YjuIk8cDCrJVemBY 8mGYDuHSPjDYZ6HW5fdGt eBNPkPCRsieGMDjyIUO2c eSAxMSwgMjAyMyAxOjQxI RJASH8sjZGcWN9OYEIzrw UDFfkhp7EbEDW1GN4plpT 9uV3bRDSearZeqk2wGKHy vVISsCW8ZRonewSrD3xej wcaWBE7WIOmWMS9B7pqFF PRveTtQJFUoTQ1ZOfvacD fBU9XMAS3YHj8IUPaflVI ClxlcGljTmVzdERvYzBcd mM0JLVbzCUxYDA5VT5pOZ LchamvTZDoXCEzKBN0PAj nuQ63uBUjUQZbNYYqoIUh bDdgoCTheiTLLvzlsZ0dV mQtz2gomUa8JTIYMpbsrO SbfxyihhS1MHWhu3dtzQp ay9GvvXWrWY7kqOtpoE0f ZnMxNiANCn0= [facility] Work Phone: Performing Lab s2fevKUhVDJejBAiYdTz M GEdRANyd8soVUPjqXEeOd EwMzNcZnRuYmpcdWMxXGR hNkVpw8raq261rJZrg8kd VSZsKmO8aMJwQKUnpXIrG 325RLXiJKrsx7lau2MoHZ FtnLMbk1N6FODBydgohZu 9xAhqP48ko9O2WswgQ5qw ERTkZEVvE5IpJO6vEEYpJ xs3JUY4IRG2UZMaMUCrU0 KbCF7sSCVnnHQdJPc4o3z hwWkoPQCoDXT6o9gkFLfq fjNiGE7uwu5zrAb7s6wxj zEgRGVmYXVsdCBQYXJhZ3 VhoTziZy1rvGu3kPgaVnl xSYH1Vyi3KD6ehb69fwv4 qWdbVGFwdmsnOpR4CDtrD RUuvnmeSFv5RXmuGWNmuC C3PAWisEYqM4NnOBawCP8 gghi3ILM2UPrmDUAsBaD1 NDBcaGVhZGVyeTcyMFxmb 940YWE5XvUtLR3qS7Sqd2 M7bF3rrRSgEOOfeIOdDcA jTCDnhm8dmIGpKNejd8Rs EMQ9osX8bOKclDAfMCJwJ S76Jhgwx1HaDnxhy6VwB1 7cmUL0YRjor9dqXJ1vWxD 6coVrJHcge9fgxC7zPkX3 DLadWT8eCF3uQIKluO2pw mxjXHBnYnJkcmhlYWRccG jawjBhXn7zyUsyDJG0ELi wW8ycxI2wEvE4LHhoH9tz wL8bPPl4VWzuaDR7IDUpn Q5kDL0gtxekt5qeTSfvBX ubLOSrbaE6rnWbAVGerHB tQ6BefH1eFUBhWG3vjqvb o4stSFN3RCnyNPLmRMI0Q tOmVPQbh0Yyfkl0BqOlp9 IeeJRoDElbI46ox398GYV bcdAtX2buzHEgqxgqjLRn tzuiRHemijH0ELCaDMOaX WluXGYxXGZzMjJcbGFuZz EwMzNcaGljaFxmMVxkYmN qMGTrZGmtO9lsFdBbLuQv YvPHdYNtcs2snYyoVLyym PWojQLfgRG1zY8zCCTpjc Bkzo8xYPRjrYWNiLC2MJn qexMlT9mdyxzxDJQ2DEPe RUB4A1omLBTQxuEjLDGqS FOvnKGkCBBITQQ3LON3XW UmQXGOCENlOHD1XUS7MZN wOTRccGFyXHBhclxwYXJk XHBsYWluXGYwXGZzMjRcc VfpxX1uYeJfVyOvYvtnPG 6kFEQhW5hwdLUnJNUrZAX pY4vdJkNryL9dcTovXPcs ZjJcZnMyMlxsdHJjaCBMY NMvvqX5o4C9NGrsfHEdck xmMVxmczIyXGxhbmcxMDM iMXswG5qiPkWoTVJlrPht MJdtz5NxGYKaIZUnYpVrS TrbHCI0t5C1AQuafMYmcl JYUnKGXR5ahEJowmgqJU2 ELlxwYXJ9 [facility] Work Phone: [facility] Work Phone: EGD Study observation Narrat iveon 08-31-2022 Radiology Study observation (narrative) [facility] CITRATE URINE 24HRon 023 Citric Acid, U, 24hr 472 mg/24 hr Normal 320-1240 Th e [facility] Comment on above: Result Comment: This test was developed and its performance characteristics determined by [facility]. It has not been cleared or approved by the Food and Drug Administration. Performed By: #### A LPHPHN #### [facility] [address] [address] [address] Li Nagel Citric Acid, Urine 472 mg/L Normal Undefined [facility] Comment on above: Performed By: #### A LPHPHN #### [facility] [address] [place], [place] [address] Dr. Li Nagel OXALATE 24HR URINEon 023 Oxalates, Urine 19 mg/L Normal Undefined [facility] Comment on above: Performed By: #### O X24HR #### [facility] [address] [address] [address] Li Nagel Oxalates, Urine 24hr 19 mg/24 hr Normal 4-31 [facility] Comment on above: Performed By: #### O X24HR #### [facility] [address] [place] [address] Dr. Li Nagel MAGNESIUM 24HR URINEon 07-09 Magnesium 24hr Urine 45.0 mg/24 hr Normal 12.0-293.0 T [facility] Comment on above: Performed By: #### I MMUN G #### [facility] [address] [place] [address] Dr. Li Nagel Magnesium UR 4.5 mg/dL Normal Not Estab. [facility] Comment on above: Performed By: #### I MMUN G #### [facility] [address] [place] [address] Dr. Li Nagel PHOSPHORUS 24HR URINEon 06-22 Phosphorus, Urine 51.4 mg/dL Normal Not Estab. [facility] Comment on above: Performed By: #### P HOS 24 #### [facility] [address] [place] [address] Dr. Li Nagel Phosphorus, Urine 24hr 514 mg/24 hr Normal 261-1078 [facility] Comment on above: Performed By: #### P HOS 24 #### [facility] [address] [place] [address] Dr. Li Nagel URIC ACID 24 HR URINEon 06-22 Uric Acid, Urine 64.0 mg/dL Normal Not Estab. The [facility] Comment on above: Performed By: #### A LPHPHN #### [facility] [address] [place] [address] Dr. Li Nagel Uric Acid, Urine 24hr 640.0 mg/24 hr Normal 173.7-902. 1 [facility] Comment on above: Performed By: #### A LPHPHN #### [facility] [address] [place] [address] Dr. Li Nagel CALCIUM 24 HR URINEon 2022 CALC, 24 HR UR 155.0 mg/24 hr Normal 100.0-300.0 [facility] Comment on above: Performed By: #### I MMUN G #### [facility] [address] [place] [address] Dr. Li Nagel UR CALCIUM 15.5 mg/dL Normal 5.1-21.0 [facility] Comment on above: Performed By: #### I MMUN G #### [facility] [address] [place] [address] Dr. Li Nagel UR TOT VOL 1000 ml/24 HR Normal [facility] Comment on above: Performed By: #### I MMUN G #### [facility] [address] [place] [address] Dr. Li Nagel Performed By: #### A LPHPHN #### [facility] [address] [place] [address] Dr. Li Nagel CREA 24 HR URINEon 3 CREA, 24 HR UR 1891.80 mg/24 hr Critically high 800.00 -1,800 .00 [facility] Comment on above: Performed By: #### A LPHPHN #### [facility] [address] [place] [address] Dr. Li Nagel URINE CREAT 189.18 mg/dL Normal 20.00-300.00 [facility] Comment on above: Performed By: #### A LPHPHN #### [facility] [address] [place] [address] Dr. Li Naegl PTH INTACTon 07-08-2022 PTH, Intact 41 pg/mL Normal 15-65 [facility] Comment on above: Performed By: #### H EPACUT #### [facility] [address] [place] [address] Dr. Li Nagel SODIUM 24 HR URINEon 023 NA, 24 HR UR 149 mmol/24 hr Normal 40-220 [facility] Comment on above: Performed By: #### A LPHPHN #### [facility] [address] [place] [address] Dr. Li Nagel Sodium (U) [Moles/Vol] 149 mmol/L Critically high 30-90 [facility] Comment on above: Performed By: #### A LPHPHN #### [facility] [address] [place] [address] Dr. Li Nagel BUNon 07-06-2022 Urea nitrogen [Mass/Vol] 11.0 mg/dL Normal 7.0-18.0 [facility] Comment on above: Performed By: #### B UN, URIC, CA, K, NA, CL, CO2, CREA #### [facility] [address] [place] [address] Dr. Li Nagel CALCIUMon 07-06-2022 Calcium [Mass/Vol] 9.0 mg/dL Normal 8.5-10.1 [facility] Comment on above: Performed By: #### B UN, URIC, CA, K, NA, CL, CO2, CREA #### [facility] [address] [place] [address] Dr. Li Nagel CHLORIDEon 07-06-2022 Chloride [Moles/Vol] 107 mmol/L Normal 98-107 [facility] Comment on above: Performed By: #### I MMUN G #### [facility] [address] [place] [address] Dr. Li Nagel CO2on 07-06-2022 CO2 [Moles/Vol] 29.2 mmol/L Normal 21.0-32.0 The [facility] Comment on above: Performed By: #### I MMUN G #### [facility] [address] [place] [address] Dr. Li Nagel CREATININEon 07-06-2022 Creatinine [Mass/Vol] 0.97 mg/dL Normal 0.55-1.02 [facility] Comment on above: Performed By: #### B UN, URIC, CA, K, NA, CL, CO2, CREA #### [facility] [address] [place] [address] Dr. Li Nagel EGFR-AF MAURITANIAN >60 Normal >=60 The [facility] Comment on above: Performed By: #### B UN, URIC, CA, K, NA, CL, CO2, CREA #### [facility] [address] [place] [address] Dr. Li Nagel EGFR-NON AF MAURITANIAN >60 Normal >=60 [facility] Comment on above: Performed By: #### B UN, URIC, CA, K, NA, CL, CO2, CREA #### [facility] [address] [place] [address] Dr. Li Nagel NAon 07-06-2022 Sodium [Moles/Vol] 143 mmol/L Normal 136-145 [facility] Comment on above: Performed By: #### I MMUN G #### [facility] [address] [place] [address] Dr. Li Nagel POTASSIUMon 07-06-2022 Potassium [Moles/Vol] 3.6 mmol/L Normal 3.5-5.1 [facility] Comment on above: Performed By: #### I MMUN G #### [facility] [address] [place] [address] Dr. Li Nagel URIC ACID SERUMon 07-06-2022 Urate [Mass/Vol] 4.7 mg/dL Normal 2.6-6.0 [facility] Comment on above: Performed By: #### B UN, URIC, CA, K, NA, CL, CO2, CREA #### [facility] [address] [place] [address] Dr. Li Nagel SURGICAL PATHOLOGYOrdered By : Karan Nieto on 07-04-2022 Case Report Surgical Pathology Report Case: [id number] Authorizing Provider: Carol Winn MD Collected: 06/30/2022 11:43 AM Ordering Location: Ambulatory Surgery Received: 06/30/2022 10:42 PM Pathologist: Karan Nieto MD Specimens: A) - DUODENUM BIOPSY, r/o celiac B) - STOMACH BIOPSY, r/o H pylori [facility] Work Phone: Diagnosis Comment u8dcqVAwOYRezZZvZHYv N FxtyiGlWIYefXBoW1Uhuc omDZyaJM1rQX9pkQoczHL yqXDaPWBhOdQfu9nvx171 bQWsv4xhDROQzjkmnJi9m MatP26sx3H1QexwM04blL XrRSA8PATeVPGbtHVgFKU tFUJ4TXWuiGPeX1cgRWTu NX5wtgkyCQfrPSlwJCOey FW5CVArpOJnN4DdIKBbMT ujXRHupui5DnSvCh6evJD yeTcyMFxwYXJkXHBsYWlu KUSrNfRoPV8bGD0yynZwy 2VkIGludHJhZXBpdGhlbG rnyFDztI8hwI2hpAIchrf zjM0tlZbxBRNsu2GdA8Ay e4XwgqnukR79nnAvYb1ao h5ngRp3lWNhREVbYEgvMp Smv9SkzxDjqqOjl0IgN6s feKomxaU1lYPiMIJbqGuw YyBkaXNlYXNlIGFuZCBvd VdaodLex45cgYLoh99mLT W6N4tyHHBwzWNtoLieZEN oz6Qzb6VqPInxQkYfrFwr moJdzB4qsSCesC6bWVifs Brkn4TdO1NwtkHhbGcyrb nevX9zMOA6gS5wQSkkAL4 kIHNvbWUgbWVkaWNhdGlv iiLrCFPztZ9jB7EqCLFfk fFcdIZ0hE7eYIavcUtdKR Jrxg5eeemiaKJgd9Jxm2x uJ9loFYS4xQDzFMAzqFTr IbJgV76ai5ohKAUrFTReA kDsdHxicZVirJu4BVtmZA soWCZiQU0zcIUauW== [facility] Work Phone: FINAL DIAGNOSIS z9uxkBOtJQUmvMEqWTSv N LxavkVcGEIyzQXyG6Korg ftKPtwTY7eAK7usDjyqME xwUTlFZXmAhUni5yrf959 kIKlo4pjZAXZonahbVc6b NycL33hu2W1StomA13szQ EuOEA0ZEVlNIKuyANpKLW hRWA6IXMvlUUxS6nnKNMu JX0mnajfDUkfPOgfTIEli DG4DAPpvPNgM5LmYYOzLK ziWJCnerf6HtLqWz1zqMG yeTcyMFxwYXJkXHBsYWlu LKEyWrPgJO3cEWSpNUWlm S9cIUSoi3UxuWrrlEBdIM 5xA45yfUkxoR56DKD5eG6 yaFBbgBPzs7Okp2m7fIWk k0EkWRqmycvykF75fcKyb vBldCLzZ1A2qsVrZK3wAR cyX7DbPPJkZODnyrIxKYJ waXRoZWxpYWwgbHltcGhv Q8x6RHU8AKErHQHtq11rN U16ZrfsAQCotWWeEZGfXT T0y47xN3uoDIVrp3WakZw raQLvFP5mO5FnxMQfNzRw sQakmBkhCM13X21oYXB4a SKwNAMlca0jaYYzWVB4nG EwEJveySxwr3AeB6PsllL kpUbdhrlhWTAdi3OfYHFh GQSkGTX8fry9lTEuDRQvr n0= [facility] Work Phone: Gross Description s4hxnEKtOKZpfKHRHDEu M QFgZK3mkYapxMl2pNqrCV MrnwX8tHEvDVsif3bxJIH 7l7xujzTTZygjRURbCKnv LGCtoyyzSfW5SPqtATQev qnqNAw3ZIpzHIHjwHV0XH GreJYcA6TyFWKfTP4qibw 5LRV7PFyiOPVbMcE3YEAz CpPkPaukPZg4NEJlmlP0X xb8JPHvJPCreASby0G3DY dqaicjGMMhoPBvI834KVu sx0QuaQHuBOqznKKqIRFQ KyjlHlajsOods6DjfVLfT GlkIDUxMDAwIFxcbmggXF l8KTThAVfdqVPzUI5wrFs bJefliDhkv8TotWEuXSwj OCQdHAUcQKogJSTpOM9GB qImJAS1Liw8Wyb0XdK7FM j5HYFLWxNzNnRhUwjlKHP 8JHFrUUf7JBa0IUzLLqR5 WXJsUIodRVYgWXK4UGv2F FxcdCAyIFxcZiBBcmlhbC LfOETuCIfiisN7XCPuVUn iJYItLOVGA4FYVaXGTYBV N5RRZYisXZGwPJagXRHgF 77ge8SJy4JyVF2PVQp8xm OncxhoxL9tYHMzhfLbXIa wkSLjM2kgGyEbKHWDFPDq vQIgDKCsfwLnt8IfZAamv iBhcmUgbXVsdGlwbGUgcG rdC1JyUY8jADLvjyucn29 ibPE6nWUofPEvCYjtlcSl VVGndpfoiC8fGR92NRchF N9kIJssNT7iQKWvLnYVz9 PajJn9QXV2Gc8omQKqBRE mxwRegkZuY3Bpr2U5gCMg VMqjOBWaO47ma0AEi8AgD HRpc6ydpTaxs8GqnHMpSA fnFQKliKHeXIqnhJ4aLoJ cl6lnfTf5ISslsfM8IGKo fc6ctDdhlS6qLEu4XKukV BKyQ6QqW0QdDYyzUYQ7CX AwMiBcXGRiICBPVlIgIiA jHiM3EDS6HVQtONd7ONek T8YDQCEaUHD9RQr1OMy7L oG5CDg4GHECSx5lYPhsYk x0XQVpFPY5STq1GRRkXFR gMiBcXGYgQXJpYWwgXFxm aAYdRU2reQsliDIhpalmw nR1XDFiPVziPHRnWGREO1 8BX0uvGlzTAFVDENEtiaW NClxlcGljTmVzdERvYzEg DQpcbHRycGFyXGxpbjBcc mluMCANClxsdHJjaFxmcz AdTIVhP0IdphMiLKszBWR bmt4piTflIBVhYHV3j73h fHgoF6OdTW8aTQBsjxqxh 50ieVP4vFNxfFSiDXhtst JwYAKbdwyeeT8xSQ2dOPu zOU3vATzfDA0gABUpYqZY a5SipOd5MNU5Zw9pdPMrH WGobhFqvtAtQ9Eub5O2hI UuIFxwYXIgDQpccGFyIA0 WQ5Ttr2BfATyejDyaADHz p25bqUVhBc3ujWJeKDL3X ENsZXZlbGFuZCBDbGluaW QaXRb3SGNyKCZszHxiRJS 9WV6aSULaYXFtxZDlIEus X0rvWUTkDZSncJLrNH8IN HBhciANCkpUIDAzLzEwLz NqSbVmIWz8RwLKYKpgZYJ kGXqtSVYpA20so1YVl1Lo FSUhu0ojhCeae4BjwUMyI KuqPAEhrGCbDLrevN3sIf Thk9oaqZo5ASdbqpR6JKP cxc1nqLtfuK1tNJoac6un SFV9YUTueFLwdAFwDEvfv EkdaK1bJtMzFwg3HKjnFK HfH8UoI9OvtuW9CSJeMFf uXGZzMTYgDQp9 [facility] Work Phone: Performing Lab l1gfnQWiMWQpyNTgUbLg M CFzXCPwk6mhYCQpvPAqZy EwMzNcZnRuYmpcdWMxXGR vOjKat0uog025fRAqf8se AYPtSaR8nQYwOHXlrNPmY 987TOWlHSvhb4zcj5GmEX PtmBNbz2T5FFYKozpnrTj 0lCstH74fy4X4UoauB1ey FPHpFRSqW6OkQX0cBCZqS so9KTW3AHW7TFJxFMFbW9 CyGI1sFJEylCTmKTc3u5m ruYnzMBMrDRJ0e7blYCeq iaGyFL7lzy0jaAv9r1glg zEgRGVmYXVsdCBQYXJhZ3 KsvFdiUi5ciFv8xVfaHws qNXU3Inp6ZF0ttl71ovx3 tCijRECceajrZoO1YPkmF OJoblliOMb6NLkpXAGqgC L8FEJvkWIvR4WsMRcnYA6 dzmr0DIR5XEuxZLHbJqV6 NDBcaGVhZGVyeTcyMFxmb 264NAD5WrHoSU1tK1Ass0 K2vM5tvDPiKPGpvFXbAlY oCWFhwc1ijVZfZLjqp6Fe ORW9hxH9pPHggFSxENLvC P67Ssflh7WdCuapx1FbJ9 8qnEB5TWujw9ajUD2zLcL 9tlXvJSizo3efxK5iGoL3 CFaoGW6kET1oOUBpbF7ru mxjXHBnYnJkcmhlYWRccG mvdxIsHu5xsVlnYFI3LMl oB7bjcH8kXpA3MAqgW4tb mZ5hVPk7PQuzeLE4WYYiu W5eBL4gpxgvy9imNImcVS wiQJNllcS6nyJpBNTmaQQ oC0EnuK4gIBSkDL5axeys i1wgWFT3PGazLNXqEVT1O pAwPTMtu4Doyiv1BhMda0 QhtELjVZhvB53na996RHB bfyGxZ6gxiFKrirkfvNEc ifimKFlubbB9RBUhBXEuF WluXGYxXGZzMjJcbGFuZz EwMzNcaGljaFxmMVxkYmN tDWYkGWtdM7ydJvJdVxCw SeFNuUCmzl9riEkhXKbmp JJrrZHiaQU0dA1aKDGvdg Atbp5yAHNzeDJQrRL4RZl crmRzY4yriwuiYIN0VIWk SXK1O0qdZCSVozUwZYCoI LLznYSgTAWTLAH3FZM3HW QnQTTFRDOzCCM1ACR8QMV wOTRccGFyXHBhclxwYXJk XHBsYWluXGYwXGZzMjRcc GulaB9qDlAhDwZdWcxiAX 9dBNNmF7jhlZQmLMRdWHA kF0utOjRlnI0tkGyqUBug ZjJcZnMyMlxsdHJjaCBMY CWjbaZ3z5A6IHgcfXQhvc xmMVxmczIyXGxhbmcxMDM oAVmfD3gaRqWuOHTjhNfr TBclf5WzBYZwRNLdMhYvR StmEDA5c6V7PYzcaZPfxq QTVqSOHP2ihQGntrbxCH8 ELlxwYXJ9 [facility] Work Phone: [facility] Work Phone: EGD Study observation Miguelito bender 06-30-2022 [facility] Gastroenterology Gastrointestinal Endoscopy Patient Name: Orion Harper Procedure Date: 06/30/2022 11:41 AM Date of : 1990 Admit Type: Outpatient Age: 31 Room: [place] [address] Gender: Female Note Status: Finalized Attending MD: [...] verified by the physician, the nurse, the director of billing and the technician terminal and repeater in the procedure room at 11:35 AM. [...] gastric ulcers (more content not included)... [facility] Radiology Study observation (narrative) [facility] XR KUB 1 VIEWon 06-30-2022 [...] by: JACKSON ADKINS Date: 2022-06-30 07:02 Normal [facility] US ABD RT UPPER QUADRANTon 0 06-15-20[address] [facility] [address] ABD/PEL WO IVCONon 2022 Radiology Result ACTIONABLE Abnormal [facility] No Panel Informationon 05-27 [facility] YMTVY-5-JUBFMFVHYHT PHENOTYP INGon 05-11-2022 Aevtn-8-Hxzxbdcstje, Serum 130 mg/dL Normal 100-188 [facility] Comment on above: Result Comment: Perf ormed at: CB Performed By: #### A [facility] #### [facility] [address] [place] [address] Dr. Li Nagel Phenotype (PI) MM Normal [facility] [...] Performed at: BN Performed By: #### A [facility] #### [facility] [address] [place], [place] [address] Dr. Li Nagel HEREDITARY HEMOCHROMATOSIS, DNA ANALYSISon 05-11-2022 Hereditary Hemochromatosis Comment Normal [facility] Comment on above: Result Comment: Resu lt: c.845G>A (p.Gwv206Teh) - Not Detected c.187C>G (p.Osx17Abq) - Not Detected c.193A>T (p.Xnd27Zav) - Not Detected Not associated with increased [...] for patients who are homozygous for c.845G>A (p.Wre216Qiw) and have yet to experience clinical symptoms. . Comments: The most common HFE variants associated with hereditary hemochromatosis are c.845G>A (p.Myk365Xoa), c.187C>G (p.Njx21Hhv), c.193A>T (p.Swh93Okj). While patients homozygous for c.845G>A (p.Iko751Alw) are the most likely to present clinical symptoms, less than 10% develop clinically significant iron overload with tissue and organ damage. . Genetic counseling is recommended to discuss the potential clinical implications of positive results, as well as recommendations for testing family members. Genetic Coordinators are available for health care providers to discuss results at [phone]). . Test Details: Three variants analyzed: c.845G>A (p.Oxr603Ipl), commonly referred to as C282Y c.187C>G (p.Wrc36Juv), commonly referred to as H63D c.193A>T (p.Wew24Pvj), commonly referred to as S65C . Methods/Limitations: [...] developed and its performance characteristics determined by [employer]. It has not been cleared or approved by the Food and Drug Administration. . References: Brodie BR, Yoav PC, Deborah KV, Raymond LW, Ramsey ; [employer]. Diagnosis and management of hemochromatosis: 2011 practice guideline by the [employer]. Hepatology. 2011 Oct;54(1):328-43. doi: 10.1002/hep.10768. PMID: 26372065; PMCID: [id number]. Cora G, Olegario P, Fabio MCDONALD, Tabatha H, Love O, Zev S, Vazquez I, Kofi M, Sunitha S. [facility] best practice guidelines for the molecular genetic diagnosis of hereditary hemochromatosis (HH). Eur J Hum [place]. 2016 Jul;24(4):479-95. doi: 10.1038/ejhg.2015.128. Epub 2014Oct 29. PMID: 60947553; PMCID: [id number]. . Anitra Hager, PhD, [facility] Dm Reyna, PhD Alexandro Rodriguez, PhD, [facility] Jhony Hammond, PhD, [facility] Oumar Avila, PhD, [facility] Rob Brand, PhD, [facility] Pascale Gracia, PhD, [facility] Lala Marvin, PhD, [facility] Performed By: #### H EPACUT #### [facility] [address] [place] [address] Dr. Li Nagel DENY by IFAon 05-06-2022 Antinuclear Antibodies, IFA Negative Normal [facility] Comment on above: Result Comment: Nega tive <1:80 Borderline 1:80 Positive >1:80 ICAP nomenclature: AC-0 For more information about Hep-2 cell patterns use ANApatterns.org, the official website for the International Consensus on Antinuclear Antibody (DENY) Patterns (ICAP). Performed By: #### A LPHPHN #### [facility] [address] [place] [address] Dr. Li Nagel CERULOPLASMINon 05-05-2022 Ceruloplasmin 27.9 mg/dL Normal 19.0-39.0 [facility] Comment on above: Performed By: #### H EPACUT #### [facility] [address] [place] [address] Dr. Li Nagel HEPATITIS A AB IGMon 023 Hep A Ab, IgM Negative Normal Negative [facility] Comment on above: Performed By: #### I MMUN G #### [facility] [address] [place] [address] Dr. Li Nagel IMMUNOGLOBULIN G INDEX SERUM OR CSFon 05-05-2022 Albumin [Mass/Vol] 4.8 g/dL Normal 3.8-4.8 [facility] Comment on above: Performed By: #### I MMUN G #### [facility] [address] [place] [address] Dr. Li Nagel Albumin, CSF NSPINL Normal [facility] Comment on above: Result Comment: Test not performed. No spinal fluid received. contacted Radha at your facility on 05-05-2022 Performed By: #### I MMUN G #### [facility] [address] [place] [address] Dr. Li Nagel CSF IgG Index UPTCAL Normal [facility] Comment on above: Result Comment: Unab le to calculate result since non-numeric result obtained for component test. Performed By: #### I MMUN G #### [facility] [address] [address] [address] Li Nagel IgG, Quant, CSF NSPINL Normal [facility] Comment on above: Result Comment: Test not performed. No spinal fluid received. contacted Radha at your facility on 05-05-2022 Performed By: #### I MMUN G #### [facility] [address] [address] [address] Li Nagel IgG/Alb Ratio, CSF UPTCAL Normal [facility] Comment on above: Result Comment: Unab le to calculate result since non-numeric result obtained for component test. Performed By: #### I MMUN G #### [facility] [address] [place] [address] Dr. Li Nagel Immunoglobulin G, Qn, Serum 971 mg/dL Normal [id number] [facility] Comment on above: Performed By: #### I MMUN G #### [facility] [address] [place] [address] Dr. Li Nagel LIVER-KIDNEY MICROSOMAL (LKM ) ABon 05-05-2022 Liver-Kidney Microsomal Ab 1.3 Units Normal 0.0-20.0 [facility] Comment on above: Result Comment: Nega tive 0.0 - 20.0 Equivocal 20.1 - 24.9 Positive >24.9 . LKM type 1 antibodies are detected in patients with autoimmune hepatitis type 2 and in up to 8% of patients with chronic HCV infection. Performed By: #### H EPACUT #### [facility] [address] [place] [address] Dr. Li Nagel MITICHONDRIAL (M2) ANTIBODYo n 05-05-2022 Mitochondrial (M2) Antibody <20.0 Normal 0.0-20.0 [facility] Comment on above: Result Comment: Nega tive 0.0 - 20.0 Equivocal 20.1 - 24.9 Positive >24.9 . Mitochondrial (M2) Antibodies are found in 90-96% of patients with primary biliary cirrhosis. Performed By: #### A LPHPHN #### [facility] [address] [place] [address] Dr. Li Nagel SMOOTH MUSCLE ANTIBODYon Actin (Smooth Muscle) Antibody 9 Units Normal 0-19 [facility] Comment on above: Result Comment: Nega tive 0 - 19 Weak positive 20 - 30 Moderate to strong positive >30 . Actin Antibodies are found in 52-85% of patients with autoimmune hepatitis or chronic active hepatitis and in 22% of patients with primary biliary cirrhosis. Performed By: #### A LPHPHN #### [facility] [address] [place] [address] Dr. Li Nagel FERRITINon 05-03-2022 Ferritin [Mass/Vol] 319.0 ng/mL Critically high 6.2-137.0 [facility] Comment on above: Performed By: #### A LPHPHN #### [facility] [address] [place] [address] Dr. Li Nagel PAP ACOG PANEL 2: 30 to 65on 04-28-2022 . . Normal [facility] Comment on above: Result Comment: Perf ormed at: BA Performed By: #### I MMUN G #### [facility] [address] [place] [address] Dr. Li Nagel Age Gdln ACOG Testing 30-65 Normal [facility] Comment on above: Performed By: #### I MMUN G #### [facility] [address] [place] [address] Dr. Li Nagel DIAGNOSIS: Comment Normal [facility] Comment on above: Result Comment: NEGA TIVE FOR INTRAEPITHELIAL LESION OR MALIGNANCY. Performed at: BA Performed By: #### I MMUN G #### [facility] [address] [place] [address] Dr. Li Nagel HPV Aptima Negative Normal Negative [facility] Comment on above: Result Comment: This nucleic acid amplification test detects fourteen high-risk HPV types (16,18,31,33,35,39,45,51,52,56,58,59,66,68) without differentiation. Performed at: =G Performed By: #### I MMUN G #### [facility] [address] [address] [address] Li Nagel HPV Genotype Reflex Comment Normal [facility] Comment on above: Result Comment: Crit ershira not met, HPV Genotype not performed. Performed at: BA Performed By: #### I MMUN G #### [facility] [address] [address] [address] Li Nagel Methodology: Comment Normal [facility] Comment on above: Result Comment: This liquid based ThinPrep(R) pap test was screened with the use of an image guided system. Performed at: WB Performed By: #### I MMUN G #### [facility] [address] [address] [address] Li Nagel Note: Comment Normal [facility] Comment on above: Result Comment: The Pap [...] Performed By: #### I MMUN G #### [facility] [address] [address] [address] Li Nagel Performed by: Comment Normal [facility] Comment on above: Result Comment: Gretta Holly, Hand Tile Maker (ASCP) Performed at: BA Performed By: #### I MMUN G #### [facility] [address] [address] [address] Li Nagel Specimen adequacy: Comment Normal [facility] Comment on above: Result Comment: Sati sfactory for evaluation. No endocervical component is identified. Performed at: BA Performed By: #### I MMUN G #### [facility] [address] [address] [address] Li Nagel HEPATITIS PANEL, ACUTEon HBsAg Screen Negative Normal Negative [facility] Comment on above: Performed By: #### H EPACUT #### [facility] [address] [address] [address] Li Nagel HCV AB <0.1 Normal 0.0-0.9 [facility] Comment on above: Performed By: #### H EPACUT #### [facility] [address] [place], [place] [address] Dr. Li Nagel Hep A Ab, IgM Negative Normal Negative [facility] Comment on above: Performed By: #### H EPACUT #### [facility] [address] [place], [place] [address] Dr. Li Nagel Hep B Core Ab, IgM Negative Normal Negative [facility] Comment on above: Performed By: #### H EPACUT #### [facility] [address] [place], [place] [address] Dr. Li Nagel Interpretation: Comment Normal [facility] Comment on above: Result Comment: Nega tive Not infected with HCV, unless recent infection is suspected or other evidence exists to indicate HCV infection. Performed By: #### H EPACUT #### [facility] [address] [address] [address] Li Nagel US PELVIS AND TRANSVAGon [...] by: LAURIE CRUZ Date: 2021-12-22 09:50 Normal [facility] US ABD RT UPPER QUADRANTon 0 12-10-2021 [facility] US PELVIS AND TRANSVAGon US [...] LAURIE CRUZ Date: 2021-10-28 13:01 Normal [facility] VAGINITIS/VAGINOSIS DNA PROB Maik 10-21-2021 Sharif species Negative Normal Negative [facility] Comment on above: Performed By: #### I MMUN G #### [facility] [address] [place] [address] Dr. Li Nagel Gardnerella vaginalis Negative Normal Negative [facility] Comment on above: Performed By: #### I MMUN G #### [facility] [address] [address] [address] Li Nagel Trichomonas vaginalis Negative Normal Negative [facility] Comment on above: Performed By: #### I MMUN G #### [facility] [address] [address] [address] Li Nagel CBC AUTO DIFFon 10-20-2021 BASO # 0.0 103/ul Normal 0.0-0.1 [facility] Comment on above: Performed By: #### A LPHPHN #### [facility] [address] [address] [address] Li Nagel Basophils/100 WBC (Bld) 0.4 % Normal 0.2-2.0 [facility] Comment on above: Performed By: #### A LPHPHN #### [facility] [address] [place] [address] Dr. Li Nagel EO # 0.2 103/ul Normal 0.0-0.7 [facility] Comment on above: Performed By: #### A LPHPHN #### [facility] [address] [place] [address] Dr. Li Nagel Eosinophils/100 WBC (Bld) 2.6 % Normal 0.9-7.0 [facility] Comment on above: Performed By: #### A LPHPHN #### [facility] [address] [place] [address] Dr. Li Nagel Erythrocyte distribution width (RBC) [Ratio] 12.6 % Normal 11.0-15.0 [facility] Comment on above: Performed By: #### A LPHPHN #### [facility] [address] [place] [address] Dr. Li Nagel Hematocrit (Bld) [Volume fraction] 40.0 % Normal 36.0-48.0 [facility] Comment on above: Performed By: #### A LPHPHN #### [facility] [address] [place] [address] Dr. Li Nagel Hemoglobin (Bld) [Mass/Vol] 13.3 g/dL Normal 12.0-16.0 [facility] Comment on above: Performed By: #### A LPHPHN #### [facility] [address] [place] [address] Dr. Li Nagel IG # 0.06 10e3/ul Critically high 0.00-0.03 [facility] Comment on above: Performed By: #### A LPHPHN #### [facility] [address] [place] [address] Dr. Li Nagel IG % 0.9 % Critically high 0.0-0.5 [facility] Comment on above: Performed By: #### A LPHPHN #### [facility] [address] [place] [address] Dr. Li Nagel LYMPH # 2.2 103/ul Normal 1.2-3.8 [facility] Comment on above: Performed By: #### A LPHPHN #### [facility] [address] [place] [address] Dr. Li Nagel Lymphocytes/100 WBC (Bld) 31.0 % Normal 20.5-60.0 [facility] Comment on above: Performed By: #### A LPHPHN #### [facility] [address] [place] [address] Dr. Li Nagel MANUAL DIFF REQ NO Normal [facility] Comment on above: Performed By: #### A LPHPHN #### [facility] [address] [place] [address] Dr. Li Nagel MCH (RBC) [Entitic mass] 31.4 pg Normal 26.7-34.0 [facility] Comment on above: Performed By: #### A LPHPHN #### [facility] [address] [place] [address] Dr. Li Nagel MCHC (RBC) [Mass/Vol] 33.3 g/dL Normal 29.9-35.2 [facility] Comment on above: Performed By: #### A LPHPHN #### [facility] [address] [place] [address] Dr. Li Nagel MCV (RBC) [Entitic vol] 94.3 fL Normal 81.0-99.0 [facility] Comment on above: Performed By: #### A LPHPHN #### [facility] [address] [place] [address] Dr. Li Nagel MONO # 0.5 103/ul Normal 0.3-0.8 [facility] Comment on above: Performed By: #### A LPHPHN #### [facility] [address] [place] [address] Dr. Li Nagel Monocytes/100 WBC (Bld) 6.9 % Normal 1.7-12.0 [facility] Comment on above: Performed By: #### A LPHPHN #### [facility] [address] [place] [address] Dr. Li Nagel NEUT # 4.1 103/ul Normal 1.4-6.5 [facility] Comment on above: Performed By: #### A LPHPHN #### [facility] [address] [address] [address] Li Nagel Neutrophils/100 WBC (Bld) 58.2 % Normal 43.0-75.0 [facility] Comment on above: Performed By: #### A LPHPHN #### [facility] [address] [place] [address] Dr. Li Nagel Platelet mean volume (Bld) [Entitic vol] 11.0 fL Normal 9.5-13.5 [facility] Comment on above: Performed By: #### A LPHPHN #### [facility] [address] [place] [address] Dr. Li Nagel PLT 211 103/ul Normal 150-450 [facility] Comment on above: Performed By: #### A LPHPHN #### [facility] [address] [place] [address] Dr. Li Nagel RBC 4.24 106/ul Normal 4.20-5.40 [facility] Comment on above: Performed By: #### A LPHPHN #### [facility] [address] [place] [address] Dr. Li Nagel WBC 7.0 103/ul Normal 4.0-11.0 [facility] Comment on above: Performed By: #### A LPHPHN #### [facility] [address] [place] [address] ABD/PELV W CONon 10-20- 22 CT ABD/PELV W CON EXAMINATION: CT [...] DOLORES MOON Date: 2021-10-20 14:53 Normal [facility] OCC BLD IMMUNO SCREENon 09-23 OCCULT BLOOD Negative Normal NEGATIVE [facility] Comment on above: Performed By: #### O BSCRN #### [facility] [address] [place] [address] Dr. Li Nagel PROF 14(COMP METB)on 022 Albumin [Mass/Vol] 3.7 g/dL Normal 3.4-5.0 [facility] Comment on above: Performed By: #### A LPHPHN #### [facility] [address] [place] [address] Dr. Li Nagel Albumin/Globulin [Mass ratio] 1.2 {ratio} Normal [facility] Comment on above: Performed By: #### A LPHPHN #### [facility] [address] [place] [address] Dr. Li Nagel ALP [Catalytic activity/Vol] 86 U/L Normal 46-116 [facility] Comment on above: Performed By: #### A LPHPHN #### [facility] [address] [place] [address] Dr. Li Nagel ALT [Catalytic activity/Vol] 109 U/L Critically high 14-59 [facility] Comment on above: Performed By: #### A LPHPHN #### [facility] [address] [place] [address] Dr. Li Nagel Anion gap [Moles/Vol] 7.8 mmol/L Normal [facility] Comment on above: Performed By: #### A LPHPHN #### [facility] [address] [place] [address] Dr. Li Nagel AST [Catalytic activity/Vol] 57 U/L Critically high 15-37 [facility] Comment on above: Performed By: #### A LPHPHN #### [facility] [address] [place] [address] Dr. Li Nagel Bilirubin [Mass/Vol] 0.4 mg/dL Normal 0.2-1.0 [facility] Comment on above: Performed By: #### A LPHPHN #### [facility] [address] [place] [address] Dr. Li Nagel Calcium [Mass/Vol] 8.9 mg/dL Normal 8.5-10.1 [facility] Comment on above: Performed By: #### A LPHPHN #### [facility] [address] [place] [address] Dr. Li Nagel Chloride [Moles/Vol] 104 mmol/L Normal 98-107 [facility] Comment on above: Performed By: #### A LPHPHN #### [facility] [address] [place] [address] Dr. Li Nagel CO2 [Moles/Vol] 27.7 mmol/L Normal 21.0-32.0 [facility] Comment on above: Performed By: #### A LPHPHN #### [facility] [address] [place] [address] Dr. Li Nagel Creatinine [Mass/Vol] 0.78 mg/dL Normal 0.55-1.02 [facility] Comment on above: Performed By: #### A LPHPHN #### [facility] [address] [place] [address] Dr. Li Nagel EGFR-AF MAURITANIAN >60 Normal >=60 [facility] Comment on above: Performed By: #### A LPHPHN #### [facility] [address] [place] [address] Dr. Li Nagel EGFR-NON AF MAURITANIAN >60 Normal >=60 [facility] Comment on above: Performed By: #### A LPHPHN #### [facility] [address] [place] [address] Dr. Li Nagel Globulin (S) [Mass/Vol] 3.2 g/dL Normal [facility] Comment on above: Performed By: #### A LPHPHN #### [facility] [address] [place] [address] Dr. Li Nagel Glucose [Mass/Vol] 104 mg/dL Normal 74-106 [facility] Comment on above: Performed By: #### A LPHPHN #### [facility] [address] [place] [address] Dr. Li Nagel Potassium [Moles/Vol] 3.5 mmol/L Normal 3.5-5.1 [facility] Comment on above: Performed By: #### A LPHPHN #### [facility] [address] [place] [address] Dr. Li Nagel Protein [Mass/Vol] 6.9 g/dL Normal 6.4-8.2 [facility] Comment on above: Performed By: #### A LPHPHN #### [facility] [address] [place] [address] Dr. Li Nagel Sodium [Moles/Vol] 136 mmol/L Normal 136-145 [facility] Comment on above: Performed By: #### A LPHPHN #### [facility] [address] [place] [address] Dr. Li Nagel Urea nitrogen [Mass/Vol] 10.0 mg/dL Normal 7.0-18.0 [facility] Comment on above: Performed By: #### A LPHPHN #### [facility] [address] [place] [address] Dr. Li Nagel Urea nitrogen/Creatinine [Mass ratio] 12.8 mg/mg Normal [facility] Comment on above: Performed By: #### A LPHPHN #### [facility] [address] [place] [address] Dr. Li Nagel XR LSPINE MIN 4 [...] by: LAURIE CRUZ Date: 2021-09-06 15:05 Normal [facility] NM HEPATOBILIARY SCAN W EFon 08-27-2021 NM [...] by: JACKSON ADKINS Date: 2021-08-27 16:05 Normal [facility] Comprehensive Metabolic Pane yair 08-20-2021 Albumin [Mass/Vol] 5.0 g/dL Normal 3.6-5.1 [facility] Comment on above: Performed By: #### C MP #### [facility] [address] [place], [place] [id number] Albumin/Globulin [Mass ratio] 2.1 {ratio} Normal 1.0-2.5 [facility]ident [facility] Specialist Comment on above: Performed By: #### C MP #### [facility] [address] [place], [place] [id number] ALP [Catalytic activity/Vol] 110 U/L Normal 35-119 [place] [facility] Comment on above: Performed By: #### C MP #### [facility] [address] [place], [place] [id number] ALT [Catalytic activity/Vol] 71 U/L High 6-33 [facility] Comment on above: Result Comment: 03/24 Female reference range changed. Performed By: #### C MP #### [facility] [address] [place], [place] [id number] Anion gap [Moles/Vol] 17 mmol/L Normal 12-20 [facility] Comment on above: Result Comment: Effe ctive 04/29/2019 reference range changed. Performed By: #### C MP #### [facility] [address] [place], [place] [id number] AST [Catalytic activity/Vol] 69 U/L High 9-34 [facility] Comment on above: Performed By: #### C MP #### [facility] [address] [facility] [place] [id number] BUN/CREA 11 Ratio Normal 6-22 [facility] Comment on above: Performed By: #### C MP #### [facility] [address] [id number] Calcium [Mass/Vol] 9.8 mg/dL Normal 8.6-10.2 [facility] Comment on above: Performed By: #### C MP #### [facility] [address] [id number] Chloride [Moles/Vol] 99 mmol/L Normal 98-107 [facility] Comment on above: Performed By: #### C MP #### [facility] [address] [place], [place] [id number] CO2 [Moles/Vol] 25 mmol/L Normal 20-31 [facility] Comment on above: Performed By: #### C MP #### [facility] [address] [place], [place] [id number] Creatinine [Mass/Vol] 0.9 mg/dL Normal 0.6-1.4 [facility] Comment on above: Performed By: #### C MP #### [facility] [address] [place], [place] [id number] eGFRAA 94 mL/min/1.73m2 Normal >60 [facility] Specialist Comment on above: Performed By: #### C MP #### [facility] [address] [place], [place] [id number] eGFRNAA 78 mL/min/1.73m2 Normal >60 [facility] Comment on above: Performed By: #### C MP #### [facility] [address] [place], [place] [id number] Globulin (S) [Mass/Vol] 2.4 g/dL Normal 1.9-3.7 [facility] Comment on above: Performed By: #### C MP #### [facility] [address] [place], [place] [id number] Glucose [Mass/Vol] 100 mg/dL High 65-99 [facility] Specialist Comment on above: Result Comment: For FASTING Glucose --- ADA reference ranges: Normal 65-99 mg/dl Prediabetes 100-125 Diabetes >/= 126 Performed By: #### C MP #### [facility] [address] [place], [place] [id number] Potassium [Moles/Vol] 3.8 mmol/L Normal 3.5-5.5 [facility] Comment on above: Performed By: #### C MP #### [facility] [address] [place], [place] [id number] Protein [Mass/Vol] 7.4 g/dL Normal 6.1-8.1 [facility] Special[facility] Comment on above: Performed By: #### C MP #### [facility] [address] [place], [place] [id number] Sodium [Moles/Vol] 137 mmol/L Normal 135-146 [facility] Specialist Comment on above: Performed By: #### C MP #### [facility] [address], [place] [id number] TBIL <0.3 Normal [facility] Specialist Comment on above: Performed By: #### C MP #### [facility] [address] [place], [place] [id number] Urea nitrogen [Mass/Vol] 10 mg/dL Normal 7-25 [facility] Special[facility] Comment on above: Performed By: #### C MP #### [facility] [address] [place], [place] [id number] US SINGLE QUAD RT UPPERon US SINGLE [...] JACKSON ADKINS Date: 2021-08-16 08:19 Normal [facility] Complete Blood Count with Au to Diffon 08-06-2021 Basophils (Bld) [#/Vol] 0.03 10*3/uL Normal 0.00-0.20 [facility] Resident Program Specialist Comment on above: Performed By: #### C MP, CBCAD, LIPD #### [facility] [address] [place], [place] [id number] Basophils/100 WBC (Bld) 0.4 % Normal [facility] Resident Program Specialist Comment on above: Performed By: #### C MP, CBCAD, LIPD #### [facility] [address] [place], [place] [id number] Eosinophils (Bld) [#/Vol] 0.11 10*3/uL Normal 0.02-0.50 [facility] Resident Program Specialist Comment on above: Performed By: #### C MP, CBCAD, LIPD #### [facility] [address] [place], [place] [id number] Eosinophils/100 WBC (Bld) 1.4 % Normal [facility] Specialist Comment on above: Performed By: #### C MP, CBCAD, LIPD #### [facility] [address] [place], [place] [id number] Erythrocyte distribution width (RBC) [Ratio] 12.6 % Normal 11.0-15.0 [facility] Resident Program Specialist Comment on above: Performed By: #### C MP, CBCAD, LIPD #### [facility] [address] [place], [place] [id number] Hematocrit (Bld) [Volume fraction] 44.2 % Normal 35.0-47.0 [facility] Comment on above: Performed By: #### C MP, CBCAD, LIPD #### [facility] [address] [place], [place] [id number] Hemoglobin (Bld) [Mass/Vol] 14.8 g/dL Normal 11.6-15.5 [facility] Comment on above: Performed By: #### C MP, CBCAD, LIPD #### [facility] [address] [place], [place] [id number] Lymphocytes (Bld) [#/Vol] 2.2 10*3/uL Normal 0.9-3.9 [facility] Comment on above: Performed By: #### C MP, CBCAD, LIPD #### [facility] [address] [place], [place] [id number] Lymphocytes/100 WBC (Bld) 28.1 % Normal [facility] Special[facility] Comment on above: Performed By: #### C MP, CBCAD, LIPD #### [facility] [address] [place], [place] [id number] MCH (RBC) [Entitic mass] 31.2 pg Normal 27.0-33.0 [facility] Comment on above: Performed By: #### C MP, CBCAD, LIPD #### [facility] [address] [place], [place] [id number] MCHC (RBC) [Mass/Vol] 33.5 g/dL Normal 32.0-36.0 [facility] Comment on above: Performed By: #### C MP, CBCAD, LIPD #### [facility] [address] [place], [place] [id number] MCV (RBC) [Entitic vol] 93 fL Normal 80-100 [facility] Comment on above: Performed By: #### C MP, CBCAD, LIPD #### [facility] [address] [place], [place] [id number] Monocytes (Bld) [#/Vol] 0.4 10*3/uL Normal 0.2-0.9 [facility] Comment on above: Performed By: #### C MP, CBCAD, LIPD #### [facility] [address] [place], [place] [id number] Monocytes/100 WBC (Bld) 4.8 % Normal [facility] Comment on above: Performed By: #### C MP, CBCAD, LIPD #### [facility] [address] [place], [place] [id number] Neutrophils (Bld) [#/Vol] 5.1 10*3/uL Normal 1.5-7.8 [facility] Comment on above: Performed By: #### C MP, CBCAD, LIPD #### [facility] [address] [place], [place] [id number] Neutrophils/100 WBC (Bld) 64.3 % Normal [facility] Comment on above: Performed By: #### C MP, CBCAD, LIPD #### [facility] [address] [place], [place] [id number] Platelet mean volume (Bld) [Entitic vol] 11.00 fL Normal 7.50-12.50 [facility] Comment on above: Performed By: #### C MP, CBCAD, LIPD #### [facility] [address] [place], [place] [id number] Platelets (Bld) [#/Vol] 296 10*3/uL Normal 140-400 [facility] Comment on above: Performed By: #### C MP, CBCAD, LIPD #### [facility] [address] [place], [place] [id number] RBC (Bld) [#/Vol] 4.74 10*6/uL Normal 3.90-5.20 [facility] Specialist Comment on above: Performed By: #### C MP, CBCAD, LIPD #### [facility] [address] [place], [place] [id number] RDW-SD 43.4 fL Normal 37.0-50.0 [facility] Comment on above: Performed By: #### C MP, CBCAD, LIPD #### [facility] [address] [place], [place] [id number] WBC (Bld) [#/Vol] 8.0 10*3/uL Normal 3.8-11.0 [facility] [place] [facility] Comment on above: Performed By: #### C MP, CBCAD, LIPD #### [facility] [address] [place], [place] [id number] Comprehensive Metabolic Pane yair 08-06-2021 Albumin [Mass/Vol] 5.2 g/dL High 3.6-5.1 [facility] [place] [facility] Comment on above: Performed By: #### C MP, CBCAD, LIPD #### [facility] [address] [place], [place] [id number] Albumin/Globulin [Mass ratio] 2.1 {ratio} Normal 1.0-2.5 [facility] Comment on above: Performed By: #### C MP, CBCAD, LIPD #### [facility] [address], [place] [id number] ALP [Catalytic activity/Vol] 115 U/L Normal 35-119 [facility] Comment on above: Performed By: #### C MP, CBCAD, LIPD #### [facility] [address] [place], [place] [id number] ALT [Catalytic activity/Vol] 101 U/L High 6-33 [facility] Comment on above: Result Comment: 03/24 Female reference range changed. Performed By: #### C MP, CBCAD, LIPD #### [facility] [address] [place], [place] [id number] Anion gap [Moles/Vol] 20 mmol/L Normal 12-20 [facility] Specialist Comment on above: Result Comment: Effe ctive 04/29/2019 reference range changed. Performed By: #### C MP, CBCAD, LIPD #### [facility] [address] [place], [place] [id number] AST [Catalytic activity/Vol] 96 U/L High 9-34 [facility] Comment on above: Performed By: #### C MP, CBCAD, LIPD #### [facility] [address] [place], [place] [id number] BUN/CREA 9 Ratio Normal 6-22 [facility] Comment on above: Performed By: #### C MP, CBCAD, LIPD #### [facility] [address], [place] [id number] Calcium [Mass/Vol] 9.9 mg/dL Normal 8.6-10.2 [facility] Comment on above: Performed By: #### C NORBERTO, CBCAD, LIPD #### [facility] [address] [place], [place] [id number] Chloride [Moles/Vol] 106 mmol/L Normal 98-107 [facility] Comment on above: Performed By: #### C MP, CBCAD, LIPD #### [facility] [address] [place], [place] [id number] CO2 [Moles/Vol] 21 mmol/L Normal 20-31 [facility] Comment on above: Performed By: #### C MP, CBCAD, LIPD #### [facility] [address] [place], [place] [id number] Creatinine [Mass/Vol] 0.9 mg/dL Normal 0.6-1.4 [facility] Comment on above: Performed By: #### C MP, CBCAD, LIPD #### [facility] [address] [place], [place] [id number] eGFRAA 90 mL/min/1.73m2 Normal >60 [facility] Comment on above: Performed By: #### C MP, CBCAD, LIPD #### [facility] [address], [place] [id number] eGFRNAA 74 mL/min/1.73m2 Normal >60 [facility] Comment on above: Performed By: #### C MP, CBCAD, LIPD #### [facility] [address] [place], [place] [id number] Globulin (S) [Mass/Vol] 2.5 g/dL Normal 1.9-3.7 [facility] Comment on above: Performed By: #### C MP, CBCAD, LIPD #### [facility] [address] [place], [place] [id number] Glucose [Mass/Vol] 127 mg/dL High 65-99 [facility] Specialist Comment on above: Result Comment: For FASTING Glucose --- ADA reference ranges: Normal 65-99 mg/dl Prediabetes 100-125 Diabetes >/= 126 Performed By: #### C MP, CBCAD, LIPD #### [facility] [address] [place], [place] [id number] Potassium [Moles/Vol] 4.2 mmol/L Normal 3.5-5.5 [facility] Comment on above: Performed By: #### C MP, CBCAD, LIPD #### [facility] [address] [place], [place] [id number] Protein [Mass/Vol] 7.7 g/dL Normal 6.1-8.1 [facility] Comment on above: Performed By: #### C MP, CBCAD, LIPD #### [facility] [address] [place], [place] [id number] Sodium [Moles/Vol] 143 mmol/L Normal 135-146 [facility] Comment on above: Performed By: #### C MP, CBCAD, LIPD #### [facility] [address] [place], [place] [id number] TBIL <0.3 Normal [facility] Comment on above: Performed By: #### C MP, CBCAD, LIPD #### [facility] [address] [place], [place] [id number] Urea nitrogen [Mass/Vol] 8 mg/dL Normal 7-25 [facility] Comment on above: Performed By: #### C MP, CBCAD, LIPD #### [facility] [address] [place], [place] [id number] Hemoglobin A1Con 08-06-2021 EAG 99.67 Normal [facility] Comment on above: Performed By: #### A 1C #### [facility] [address] [place], [place] [id number] HbA1c (Bld) [Mass fraction] 5.1 % Normal 4.0-6.0 [facility] Comment on above: Performed By: #### A 1C #### [facility] [address] [place], [place] [id number] Lipid Panelon 08-06-2021 Cholesterol [Mass/Vol] 190 mg/dL Normal 125-200 [facility] on above: Result Comment: Low risk < 200mg/dL Borderline risk 201-239 mg/dl High risk > or equal to 240 Performed By: #### C MP, CBCAD, LIPD #### [facility] [address] [place], [place] [id number] Cholesterol in HDL [Mass/Vol] 64 mg/dL Normal >40 [facility] Special[facility] Comment on above: Result Comment: High Cardiovascular Risk HDL <40 mg/dL Low Cardiovascular Risk HDL > or equal to 60 mg/dl Performed By: #### C MP, CBCAD, LIPD #### [facility] [address], [place] [id number] Cholesterol in LDL [Mass/Vol] 107 mg/dL Normal [facility] Specialist Comment on above: Result Comment: LDL ATP III CLASSIFICATION LDL less than 100 mg/dl Optimal LDL 100-129 mg/dl Near or above optimal LDL 130-159 Borderline high LDL 160-189 High LDL greater than 189 mg/dl Very High Performed By: #### C MP, CBCAD, LIPD #### [facility] [address] [place], [place] [id number] Cholesterol in VLDL [Mass/Vol] 19 mg/dL Normal [facility] Comment on above: Performed By: #### C MP, CBCAD, LIPD #### [facility] [address], [place] [id number] Cholesterol.total/Chol esterol in HDL [Mass ratio] 3 {ratio} Normal [facility] Special[facility] Comment on above: Performed By: #### C MP, CBCAD, LIPD #### [facility] [address] [place], [place] [id number] Triglyceride [Mass/Vol] 95 mg/dL Normal 30-150 [facility] Special[facility] Comment on above: Result Comment: TRIG ATPIII CLASSIFICATIONS TRIG less than 150 mg/dl Normal TRIG 150-199 mg/dl Borderline High TRIG 200-500 mg/dl High TRIG greather than 500 mg/dl Very High Performed By: #### C MP, CBCAD, LIPD #### [facility] [address] [place], [place] [id number] Q - CULTURE,URINE,ROUTINEon 06-04-2021 CULTURE, URINE, ROUTINE SEE NOTE Normal [facility]ident Program Specialist Comment on above: Order Comment: [facility] performed at: [employer] [employer] [facility], [address], [address] [place], [address], Assembly Press Operator: Tim Dotson MD [facility] Collection Date/Time: [facility] Results Received Date/Time: [facility] Reported Date/Time: [id number] Result Comment: CULT URE, URINE, ROUTINE Micro Number: [id number] Test Status: Final Specimen Source: Not given Specimen Quality: Adequate Result: Mixed genital marie isolated. These superficial bacteria are not indicative of a urinary tract infection. No further organism identification is warranted on this specimen. If clinically indicated, recollect clean-catch, mid-stream urine and transfer immediately to Urine Culture Transport Tube. Performed By: #### [id number] #### [facility] [address] [place] [id number] MRI LUMBAR SPINE WO CONTRAST on 11-06-2018 [...] Naren Lagos MD 11/06/18 Final result Normal [facility] Vital Signs Date Time Vital Sign Value Performing Clinician Facility 01-06-2025 11:01-0400 Body height 157.5 cm Giovani Hagen MD Work Phone: [facility] 01-06-2025 11:01-0400 Body mass index (BMI) [Ratio] 38.78 kg/m2 Giovani Hagen MD Work Phone: [facility] 01-06-2025 11:01-0400 Body weight 96.16 kg Giovani Hagen MD Work Phone: [facility] 01-06-2025 11:01-0400 Diastolic blood pressure 62 mm[Hg] Giovani Hagen MD Work Phone: [facility] 01-06-2025 11:01-0400 Heart rate 90 /min Giovani Hagen MD Work Phone: [facility] 01-06-2025 11:01-0400 Respiratory rate 16 /min Giovani Hagen MD Work Phone: [facility] 01-06-2025 11:01-0400 SaO2% (BldA) [Mass fraction] 97 % Giovani Hagen MD Work Phone: [facility] 01-06-2025 11:01-0400 Systolic blood pressure 106 mm[Hg] Giovani Hagen MD Work Phone: [facility] 12-30-2024 13:46-0400 Body height 157.5 cm Milton Fraire DPM FACFAS Work Phone: [facility] 12-30-2024 13:46-0400 Body mass index (BMI) [Ratio] 37.68 kg/m2 Milton Fraire DPM FAC[employer] Work Phone: [facility] 12-30-2024 13:46-0400 Body weight 93.44 kg Milton Fraire DPM FAC[employer] Work Phone: [facility] 12-30-2024 13:46-0400 Diastolic blood pressure 74 mm[Hg] Milton Fraire DPM FACFAS Work Phone: [facility] 12-30-2024 13:46-0400 Heart rate 91 /min Milton Fraire DPM FACFAS Work Phone: [facility] 12-30-2024 13:46-0400 Systolic blood pressure 115 mm[Hg] Milton Fraire DPM FACFAS Work Phone: [facility] 12-30-2024 09:14-0400 Body mass index (BMI) [Ratio] 36.28 kg/m2 Emma [employer]aper [employer] Work Phone: [facility] 12-30-2024 09:14-0400 Body weight 92.9 kg Emma Reaper [employer] A[employer] Work Phone: [facility] 12-30-2024 09:14-0400 Diastolic blood pressure 94 mm[Hg] Emma Reaper [employer] A[employer] Work Phone: [facility] 12-30-2024 09:14-0400 Systolic blood pressure 132 mm[Hg] Emma Reaper [employer] AIDE Work Phone: [facility] 12-26-2024 13:17-0400 Body height 157.5 cm Jatin Cabrera MD Work Phone: [facility] 12-26-2024 13:17-0400 Body mass index (BMI) [Ratio] 37.68 kg/m2 Jatin Cabrera MD Work Phone: [facility] 12-26-2024 13:17-0400 Body weight 93.44 kg Jatin Cabrera MD Work Phone: [facility] 12-26-2024 13:17-0400 Diastolic blood pressure 72 mm[Hg] Jatin Cabrera MD Work Phone: [facility] 12-26-2024 13:17-0400 Systolic blood pressure 110 mm[Hg] Jatin Cabrera MD Work Phone: [facility] 12-16-2024 09:45-0400 Body height 157.5 cm Giovani Hagen MD Work Phone: [facility] 12-16-2024 09:45-0400 Body mass index (BMI) [Ratio] 36.76 kg/m2 Giovani Hagen MD Work Phone: [facility] 12-16-2024 09:45-0400 Body weight 91.17 kg Giovani Hagen MD Work Phone: [facility] 12-16-2024 09:45-0400 Diastolic blood pressure 68 mm[Hg] Giovani Hagen MD Work Phone: [facility] 12-16-2024 09:45-0400 Heart rate 93 /min Giovani Hagen MD Work Phone: [facility] 12-16-2024 09:45-0400 SaO2% (BldA) [Mass fraction] 98 % Giovani Hagen MD Work Phone: [facility] 12-16-2024 09:45-0400 Systolic blood pressure 108 mm[Hg] Giovani Hagen MD Work Phone: [facility] 12-13-2024 10:18-0400 Body height 157.5 cm Milton Fraire DPM FACFAS Work Phone: [facility] 12-13-2024 10:18-0400 Body mass index (BMI) [Ratio] 36.76 kg/m2 Milton Dolce DPM [employer]AC[employer] Work Phone: [facility] 12-13-2024 10:18-0400 Body weight 91.17 kg Milton Dolce DPM FAC[employer]AS Work Phone: [facility] 12-13-2024 10:18-0400 Diastolic blood pressure 75 mm[Hg] Milton Dolce DPM FACFAS Work Phone: [facility] 12-13-2024 10:18-0400 Heart rate 88 /min Milton Dolce DPM FAC[employer]AS Work Phone: [facility] 12-13-2024 10:18-0400 Systolic blood pressure 115 mm[Hg] Milton Fraire DPM FAC[employer]AS Work Phone: [facility] 12-12-2024 10:38-0400 Body height 157.5 cm Sandy Hemmer PA Work Phone: [facility] 12-12-2024 10:38-0400 Body mass index (BMI) [Ratio] 36.62 kg/m2 Sandy Hemmer PA Work Phone: [facility] 12-12-2024 10:38-0400 Body weight 90.81 kg Sandy Hemmer PA Work Phone: [facility] 12-12-2024 10:38-0400 Diastolic blood pressure 76 mm[Hg] Sandy Hemmer PA Work Phone: [facility] 12-12-2024 10:38-0400 Heart rate 89 /min Sandy Hemmer PA Work Phone: [facility] 12-12-2024 10:38-0400 Respiratory rate 16 /min Sandy Hemmer PA Work Phone: [facility] 12-12-2024 10:38-0400 SaO2% (BldA) [Mass fraction] 98 % Sandy Hemmer PA Work Phone: [facility] 12-12-2024 10:38-0400 Systolic blood pressure 112 mm[Hg] Sandy Hemmer PA Work Phone: [facility] 10-10-2024 12:31-0400 Body height 157.5 cm Shannon Navarroi DEALER ANALYST Work Phone: [facility] 10-10-2024 12:31-0400 Body mass index (BMI) [Ratio] 35.3 kg/m2 Shannon Rodrigueziani DEALER ANALYST Work Phone: [facility] 10-10-2024 12:31-0400 Body weight 87.54 kg Shannon Navarroi DEALER ANALYST Work Phone: [facility] 10-09-2024 13:00-0400 Body mass index (BMI) [Ratio] 33.83 kg/m2 Mario Harper [employer] Work Phone: [facility] 10-09-2024 13:00-0400 Body weight 86.64 kg Mario Harper [employer] A[employer] Work Phone: [facility] 10-09-2024 13:00-0400 Diastolic blood pressure 76 mm[Hg] Mario Harper [employer] A[employer] Work Phone: [facility] 10-09-2024 13:00-0400 Heart rate 106 /min Mario Harper [employer] A[employer] Work Phone: [facility] 10-09-2024 13:00-0400 SaO2% (BldA) [Mass fraction] 99 % Mario Harper [employer] A[employer] Work Phone: [facility] 10-09-2024 13:00-0400 Systolic blood pressure 112 mm[Hg] Mario Harper [employer] A[employer] Work Phone: [facility] 10-08-2024 11:42-0400 Body height 157.5 cm Deena Lyn DEALER ANALYST Work Phone: [facility] 10-08-2024 11:42-0400 Body mass index (BMI) [Ratio] 34.75 kg/m2 Deena Lyn DEALER ANALYST Work Phone: [facility] 10-08-2024 11:42-0400 Body weight 86.18 kg Deena Lyn DEALER ANALYST Work Phone: [facility] 10-08-2024 11:42-0400 Diastolic blood pressure 88 mm[Hg] Deena Lyn DEALER ANALYST Work Phone: [facility] 10-08-2024 11:42-0400 Heart rate 110 /min Deena Lyn DEALER ANALYST Work Phone: [facility] 10-08-2024 11:42-0400 Respiratory rate 16 /min Deena Lyn DEALER ANALYST Work Phone: [facility] 10-08-2024 11:42-0400 SaO2% (BldA) [Mass fraction] 99 % Deena Lyn DEALER ANALYST Work Phone: [facility] 10-08-2024 11:42-0400 Systolic blood pressure 134 mm[Hg] Deena Tancred DEALER ANALYST Work Phone: [facility] 09-25-2024 10:25-0400 Body height 157.5 cm Deena Riki DEALER ANALYST Work Phone: [facility] 09-25-2024 10:25-0400 Body mass index (BMI) [Ratio] 35.74 kg/m2 Deena Tancred DEALER ANALYST Work Phone: [facility] 09-25-2024 10:25-0400 Body weight 88.63 kg Deena Riki DEALER ANALYST Work Phone: [facility] 09-25-2024 10:25-0400 Diastolic blood pressure 72 mm[Hg] Deena Riki DEALER ANALYST Work Phone: [facility] 09-25-2024 10:25-0400 Heart rate 94 /min Deena Riki DEALER ANALYST Work Phone: [facility] 09-25-2024 10:25-0400 Respiratory rate 17 /min Deena Riki DEALER ANALYST Work Phone: [facility] 09-25-2024 10:25-0400 SaO2% (BldA) [Mass fraction] 97 % Deena Riki DEALER ANALYST Work Phone: [facility] 09-25-2024 10:25-0400 Systolic blood pressure 110 mm[Hg] Deena Tancred DEALER ANALYST Work Phone: [facility] 09-17-2024 [id number] Body height 157.5 cm Sandy Hemmer PA Work Phone: [facility] 09-17-2024 11:11-0400 Body mass index (BMI) [Ratio] 35.26 kg/m2 Sandy Hemmer PA Work Phone: [facility] 09-17-2024 [id number] Body weight 87.45 kg Sandy Hemmer PA Work Phone: [facility] 09-17-2024 11:11-0400 Diastolic blood pressure 76 mm[Hg] Sandy Hemmer PA Work Phone: [facility] 09-17-2024 11:11-0400 Heart rate 75 /min Sandy Hemmer PA Work Phone: [facility] 09-17-2024 11:11-0400 Respiratory rate 16 /min Sandy Hemmer PA Work Phone: [facility] 09-17-2024 11:11-0400 SaO2% (BldA) [Mass fraction] 99 % Sandy Hemmer PA Work Phone: [facility] 09-17-2024 11:11-0400 Systolic blood pressure 112 mm[Hg] Sandy Hemmer PA Work Phone: [facility] 09-10-2024 13:37-0400 Body height 157.5 cm Giovani Hagen MD Work Phone: [facility] 09-10-2024 13:37-0400 Body mass index (BMI) [Ratio] 34.93 kg/m2 Giovani Hagen MD Work Phone: [facility] 09-10-2024 13:37-0400 Body weight 86.64 kg Giovani Hagen MD Work Phone: [facility] 09-10-2024 13:37-0400 Diastolic blood pressure 72 mm[Hg] Giovani Hagen MD Work Phone: [facility] 09-10-2024 13:37-0400 Heart rate 88 /min Giovani Hagen MD Work Phone: [facility] 09-10-2024 13:37-0400 SaO2% (BldA) [Mass fraction] 98 % Giovani Hagen MD Work Phone: [facility] 09-10-2024 13:37-0400 Systolic blood pressure 118 mm[Hg] Giovani Hagen MD Work Phone: [facility] 09-04-2024 16:21-0400 Body height 157.5 cm Milton Dolce DPM FACFAS Work Phone: [facility] 09-04-2024 16:21-0400 Body mass index (BMI) [Ratio] 33.65 kg/m2 Milton Adryanbran DPM FACFAS Work Phone: [facility] 09-04-2024 16:21-0400 Body weight 83.46 kg Milton Adryanbran DPM FACFAS Work Phone: [facility] 09-04-2024 16:21-0400 Diastolic blood pressure 80 mm[Hg] Milton Eloina DPM FACFAS Work Phone: [facility] 09-04-2024 16:21-0400 Heart rate 87 /min Milton Eloina DPM FACFAS Work Phone: [facility] 09-04-2024 16:21-0400 Systolic blood pressure 131 mm[Hg] Milton Fraire DPM FACFAS Work Phone: [facility] 09-02-2024 15:13-0400 Body height 157.5 cm Giovani Hagen MD Work Phone: [facility] 09-02-2024 15:13-0400 Body mass index (BMI) [Ratio] 33.65 kg/m2 Giovani Hagen MD Work Phone: [facility] 09-02-2024 15:13-0400 Body weight 83.46 kg Giovani Hagen MD Work Phone: [facility] 09-02-2024 15:13-0400 Diastolic blood pressure 82 mm[Hg] Giovani Hagen MD Work Phone: [facility] 09-02-2024 15:13-0400 Heart rate 113 /min Giovani Hagen MD Work Phone: [facility] 09-02-2024 15:13-0400 SaO2% (BldA) [Mass fraction] 97 % Giovani Hagen MD Work Phone: [facility] 09-02-2024 15:13-0400 Systolic blood pressure 132 mm[Hg] Giovani Hagen MD Work Phone: [facility] 08-21-2024 16:14-0400 Body height 157.5 cm Milton Adryanbran DPM FACFAS Work Phone: [facility] 08-21-2024 16:14-0400 Body mass index (BMI) [Ratio] 34.2 kg/m2 Milton Adryanbran DPM FACFAS Work Phone: [facility] 08-21-2024 16:14-0400 Body weight 84.82 kg Milton Eloina DPM FACFAS Work Phone: [facility] 08-21-2024 16:14-0400 Diastolic blood pressure 80 mm[Hg] Milton Eloina DPM FACFAS Work Phone: [facility] 08-21-2024 16:14-0400 Heart rate 80 /min Milton Eloina DPM FACFAS Work Phone: [facility] 08-21-2024 16:14-0400 Systolic blood pressure 127 mm[Hg] Milton Fraire DPM FACFAS Work Phone: [facility] 08-19-2024 08:48-0400 Body weight 77.11 kg Giovani Hagen MD Work Phone: [facility] 08-19-2024 07:30-0400 Body temperature 98.1 [degF] Giovani Hagen MD Work Phone: [facility] 08-19-2024 07:30-0400 Diastolic blood pressure 75 mm[Hg] Giovani Hagen MD Work Phone: [facility] 08-19-2024 07:30-0400 Heart rate 85 /min Giovani Hagen MD Work Phone: [facility] 08-19-2024 07:30-0400 Respiratory rate 18 /min Giovani Hagen MD Work Phone: [facility] 08-19-2024 07:30-0400 SaO2% (BldA) [Mass fraction] 97 % Giovani Hagen MD Work Phone: [facility] 08-19-2024 07:30-0400 Systolic blood pressure 114 mm[Hg] Giovani Hagen MD Work Phone: [facility] 08-16-2024 17:29-0400 Body height 157.48 cm Giovani Hagen MD Work Phone: [facility] 08-14-2024 16:39-0400 Body height 157.5 cm Milton Fraire DPM FACFAS Work Phone: [facility] 08-14-2024 16:39-0400 Body mass index (BMI) [Ratio] 34.2 kg/m2 Milton Fraire DPM FAC[employer]AS Work Phone: [facility] 08-14-2024 16:39-0400 Body weight 84.82 kg Milton Fraire DPM FACFAS Work Phone: [facility] 08-14-2024 16:39-0400 Diastolic blood pressure 80 mm[Hg] Milton Fraire DPM FAC[employer]AS Work Phone: [facility] 08-14-2024 16:39-0400 Heart rate 82 /min Milton Fraire DPM FACFAS Work Phone: [facility] 08-14-2024 16:39-0400 Systolic blood pressure 125 mm[Hg] Milton Fraire DPM FACFAS Work Phone: [facility] 08-13-2024 14:57-0400 Body height 160 cm Solo Mora MD Work Phone: [facility] 08-13-2024 14:57-0400 Body mass index (BMI) [Ratio] 31.89 kg/m2 Solo Mora MD Work Phone: [facility] 08-13-2024 14:57-0400 Body weight 81.65 kg Solo Mora MD Work Phone: [facility] 08-13-2024 14:57-0400 Diastolic blood pressure 96 mm[Hg] Solo Mora MD Work Phone: [facility] 08-13-2024 14:57-0400 Heart rate 92 /min Solo Mora MD Work Phone: [facility] 08-13-2024 14:57-0400 Systolic blood pressure 140 mm[Hg] Solo Mora MD Work Phone: [facility] 08-01-2024 14:31-0400 Body height 157.5 cm Giovani Hagen MD Work Phone: [facility] 08-01-2024 14:31-0400 Body mass index (BMI) [Ratio] 34.2 kg/m2 Giovani Hagen MD Work Phone: [facility] 08-01-2024 14:31-0400 Body weight 84.82 kg Giovani Hagen MD Work Phone: [facility] 08-01-2024 14:31-0400 Diastolic blood pressure 82 mm[Hg] Giovani Hagen MD Work Phone: [facility] 08-01-2024 14:31-0400 Heart rate 85 /min Giovani Hagen MD Work Phone: [facility] 08-01-2024 14:31-0400 SaO2% (BldA) [Mass fraction] 100 % Giovani Hagen MD Work Phone: [facility] 08-01-2024 14:31-0400 Systolic blood pressure 124 mm[Hg] Giovani Hagen MD Work Phone: [facility] 07-24-2024 16:04-0400 Body height 157.5 cm Milton Fraire DPM FACFAS Work Phone: [facility] 07-24-2024 16:04-0400 Body mass index (BMI) [Ratio] 34.75 kg/m2 Milton Fraire DPM FACFAS Work Phone: [facility] 07-24-2024 16:04-0400 Body weight 86.18 kg Milton Fraire DPM FACFAS Work Phone: [facility] 07-24-2024 16:04-0400 Diastolic blood pressure 88 mm[Hg] Milton Fraire DPM FACFAS Work Phone: [facility] 07-24-2024 16:04-0400 Heart rate 109 /min Milton Fraire DPM FACFAS Work Phone: [facility] 07-24-2024 16:04-0400 Systolic blood pressure 132 mm[Hg] Milton Fraire DPM FACFAS Work Phone: [facility] 07-10-2024 09:45-0400 Body height 158.8 cm Javy Boudreaux MD Work Phone: [facility] 07-10-2024 09:45-0400 Body mass index (BMI) [Ratio] 34.2 kg/m2 Javy Boudreaux MD Work Phone: [facility] 07-10-2024 09:45-0400 Body weight 86.18 kg Javy Boudreaux MD Work Phone: [facility] 07-10-2024 09:45-0400 Diastolic blood pressure 90 mm[Hg] Javy Boudreaux MD Work Phone: [facility] 07-10-2024 09:45-0400 Heart rate 108 /min Javy Boudreaux MD Work Phone: [facility] 07-10-2024 09:45-0400 Systolic blood pressure 131 mm[Hg] Javy Boudreaux MD Work Phone: [facility] 07-04-2024 15:30-0400 Body height 157.5 cm Giovani Hagen MD Work Phone: [facility] 07-04-2024 15:30-0400 Body mass index (BMI) [Ratio] 34.75 kg/m2 Giovani Hagen MD Work Phone: [facility] 07-04-2024 15:30-0400 Body weight 86.18 kg Giovani Hagen MD Work Phone: [facility] 07-04-2024 15:30-0400 Diastolic blood pressure 88 mm[Hg] Giovani Hagen MD Work Phone: [facility] 07-04-2024 15:30-0400 Heart rate 109 /min Giovani Hagen MD Work Phone: [facility] 07-04-2024 15:30-0400 SaO2% (BldA) [Mass fraction] 98 % Giovani Hagen MD Work Phone: [facility] 07-04-2024 15:30-0400 Systolic blood pressure 132 mm[Hg] Giovani Hagen MD Work Phone: [facility] 07-03-2024 14:55-0400 Body height 157.5 cm Milton Dolce DPM FACFAS Work Phone: [facility] 07-03-2024 14:55-0400 Body mass index (BMI) [Ratio] 34.93 kg/m2 Milton Dolce DPM FACFAS Work Phone: [facility] 07-03-2024 14:55-0400 Body weight 86.64 kg Milton Dolce DPM FACFAS Work Phone: [facility] 07-03-2024 14:55-0400 Diastolic blood pressure 79 mm[Hg] Milton Dolce DPM FACFAS Work Phone: [facility] 07-03-2024 14:55-0400 Heart rate 88 /min Milton Dolce DPM FACFAS Work Phone: [facility] 07-03-2024 14:55-0400 Systolic blood pressure 132 mm[Hg] Milton Dolce DPM FACFAS Work Phone: [facility] 06-26-2024 15:00-0500 Body height 157.5 cm Milton Dolce DPM FACFAS Work Phone: [facility] 06-26-2024 15:00-0500 Body mass index (BMI) [Ratio] 34.93 kg/m2 Milton Dolce DPM FACFAS Work Phone: [facility] 06-26-2024 15:00-0500 Body weight 86.64 kg Milton Dolce DPM FACFAS Work Phone: [facility] 06-26-2024 15:00-0500 Diastolic blood pressure 79 mm[Hg] Milton Dolce DPM FACFAS Work Phone: [facility] 06-26-2024 15:00-0500 Heart rate 88 /min Milton Fraire DPM FACFAS Work Phone: [facility] 06-26-2024 15:00-0500 Systolic blood pressure 132 mm[Hg] Milton Fraire DPM FACFAS Work Phone: [facility] 06-25-2024 14:38-0500 Body mass index (BMI) [Ratio] 34.9 kg/m2 Darwin Matty DO Work Phone: [facility] 06-25-2024 14:38-0500 Body weight 86.55 kg Darwin Matty DO Work Phone: [facility] 06-25-2024 14:38-0500 Diastolic blood pressure 78 mm[Hg] Darwin Matty DO Work Phone: [facility] 06-25-2024 14:38-0500 Systolic blood pressure 130 mm[Hg] Darwin Matty DO Work Phone: [facility] 06-19-2024 14:37-0500 Body height 157.5 cm Prateek Pedraza DPM Work Phone: [facility] 06-19-2024 14:37-0500 Body mass index (BMI) [Ratio] 35.85 kg/m2 Prateek Pedraza DPM Work Phone: [facility] 06-19-2024 14:37-0500 Body weight 88.91 kg Prateek Pedraza DPM Work Phone: [facility] 06-19-2024 14:37-0500 Respiratory rate 18 /min Prateek Pedraza DPM Work Phone: [facility] 06-06-2024 15:42-0500 Body height 157.5 cm Giovani Hagen MD Work Phone: [facility] 06-06-2024 15:42-0500 Body mass index (BMI) [Ratio] 35.85 kg/m2 Giovani Hagen MD Work Phone: [facility] 06-06-2024 15:42-0500 Body weight 88.91 kg Giovani Hagen MD Work Phone: [facility] 06-06-2024 15:42-0500 Diastolic blood pressure 82 mm[Hg] Giovani Hagen MD Work Phone: [facility] 06-06-2024 15:42-0500 Heart rate 96 /min Giovani Hagen MD Work Phone: [facility] 06-06-2024 15:42-0500 SaO2% (BldA) [Mass fraction] 99 % Giovani Hagen MD Work Phone: [facility] 06-06-2024 15:42-0500 Systolic blood pressure 118 mm[Hg] Giovani Hagen MD Work Phone: [facility] 05-29-2024 13:49-0500 Body mass index (BMI) [Ratio] 35.81 kg/m2 Ayleen Krishnamurthy PA Work Phone: [facility] 05-29-2024 13:49-0500 Body weight 88.81 kg Ayleen Yessy PA Work Phone: [facility] 05-29-2024 13:49-0500 Diastolic blood pressure 76 mm[Hg] Ayleen Krishnamurthy PA Work Phone: [facility] 05-29-2024 13:49-0500 Systolic blood pressure 122 mm[Hg] Ayleen Krishnamurthy PA Work Phone: [facility] 05-22-2024 14:30-0500 Diastolic blood pressure 92 mm[Hg] Carol Winn MD Work Phone: [facility] 05-22-2024 14:30-0500 Heart rate 102 /min Carol Winn MD Work Phone: [facility] 05-22-2024 14:30-0500 Respiratory rate 21 /min Carol Winn MD Work Phone: [facility] 05-22-2024 14:30-0500 SaO2% (BldA) [Mass fraction] 100 % Carol Winn MD Work Phone: [facility] 05-22-2024 14:30-0500 Systolic blood pressure 133 mm[Hg] Carol Winn MD Work Phone: [facility] 05-22-2024 13:40-0500 Body height 157.5 cm Carol Winn MD Work Phone: [facility] 05-22-2024 13:40-0500 Body mass index (BMI) [Ratio] 33.84 kg/m2 Carol Winn MD Work Phone: [facility] 05-22-2024 13:40-0500 Body weight 83.92 kg Carol Winn MD Work Phone: [facility] 05-15-2024 08:50-0500 Body height 157.5 cm Milton Fraire DPM FACFAS Work Phone: [facility] 05-15-2024 08:50-0500 Body mass index (BMI) [Ratio] 36.21 kg/m2 Milton Corneliusce DPM FACFAS Work Phone: [facility] 05-15-2024 08:50-0500 Body weight 89.81 kg Milton Corneliusce DPM FACFAS Work Phone: [facility] 05-15-2024 08:50-0500 Diastolic blood pressure 82 mm[Hg] Milton Fraire DPM FACFAS Work Phone: [facility] 05-15-2024 08:50-0500 Heart rate 92 /min Milton Corneliusce DPM FACFAS Work Phone: [facility] 05-15-2024 08:50-0500 Systolic blood pressure 132 mm[Hg] Milton Fraire DPM FACFAS Work Phone: [facility] 05-09-2024 14:55-0500 Body height 157.5 cm Giovani Hagen MD Work Phone: [facility] 05-09-2024 14:55-0500 Body mass index (BMI) [Ratio] 36.21 kg/m2 Giovani Hagen MD Work Phone: [facility] 05-09-2024 14:55-0500 Body weight 89.81 kg Giovani Hagen MD Work Phone: [facility] 05-09-2024 14:55-0500 Diastolic blood pressure 88 mm[Hg] Giovani Hagen MD Work Phone: [facility] 05-09-2024 14:55-0500 Heart rate 101 /min Giovani Hagen MD Work Phone: [facility] 05-09-2024 14:55-0500 SaO2% (BldA) [Mass fraction] 96 % Giovani Hagen MD Work Phone: [facility] 05-09-2024 14:55-0500 Systolic blood pressure 134 mm[Hg] Giovani Hagen MD Work Phone: [facility] 05-08-2024 15:13-0500 Body height 157.5 cm Prateek Pedraza DPM Work Phone: [facility] 05-08-2024 15:13-0500 Body mass index (BMI) [Ratio] 35.3 kg/m2 Prateek Pedraza DPM Work Phone: [facility] 05-08-2024 15:13-0500 Body weight 87.54 kg Prateek Pedraza DPM Work Phone: [facility] 05-08-2024 15:13-0500 Respiratory rate 18 /min Prateek Pedraza DPM Work Phone: [facility] 04-30-2024 15:10-0500 Body mass index (BMI) [Ratio] 35.12 kg/m2 Darwin Matty DO Work Phone: [facility] 04-30-2024 15:10-0500 Body weight 87.09 kg Darwin Matty DO Work Phone: [facility] 04-30-2024 15:10-0500 Diastolic blood pressure 74 mm[Hg] Darwin Matty DO Work Phone: [facility] 04-30-2024 15:10-0500 Systolic blood pressure 122 mm[Hg] Darwin Starr DO Work Phone: [facility] 04-26-2024 14:12-0500 Body mass index (BMI) [Ratio] 33.87 kg/m2 Iliana Yacapraro PA-C Work Phone: [facility] 04-26-2024 14:12-0500 Body weight 84 kg Iliana Yacapraro PA-C Work Phone: [facility] 04-26-2024 14:12-0500 Diastolic blood pressure 92 mm[Hg] Iliana Yacapraro PA-C Work Phone: [facility] 04-26-2024 14:12-0500 Heart rate 84 /min Iliana Yacapraro PA-C Work Phone: [facility] 04-26-2024 14:12-0500 Systolic blood pressure 133 mm[Hg] Iliana Yacapraro PA-C Work Phone: [facility] 04-18-2024 16:42-0500 Body mass index (BMI) [Ratio] 35.67 kg/m2 Josephine Gilman DEALER ANALYST Work Phone: [facility] 04-18-2024 16:42-0500 Body temperature 97.7 [degF] Josephine Gilman DEALER ANALYST Work Phone: [facility] 04-18-2024 16:42-0500 Body weight 88.45 kg Josephine Gilman DEALER ANALYST Work Phone: [facility] 04-18-2024 16:42-0500 Diastolic blood pressure 82 mm[Hg] Josephine Gilman DEALER ANALYST Work Phone: [facility] 04-18-2024 16:42-0500 Heart rate 112 /min Josephine Gilman DEALER ANALYST Work Phone: [facility] Comment on above: repeat pulse 96bpm apical. 04-18-2024 16:42-0500 Respiratory rate 20 /min Josephine Gilman NP Work Phone: [facility] 04-18-2024 16:42-0500 SaO2% (BldA) [Mass fraction] 97 % Josephine Munozrodney DEALER ANALYST Work Phone: [facility] 04-18-2024 16:42-0500 Systolic blood pressure 128 mm[Hg] Josephine Kalina DEALER ANALYST Work Phone: [facility] 04-03-2024 10:39-0500 Body height 157.5 cm Deena Riki DEALER ANALYST Work Phone: [facility] 04-03-2024 10:39-0500 Body mass index (BMI) [Ratio] 35.01 kg/m2 Deena Riki DEALER ANALYST Work Phone: [facility] 04-03-2024 10:39-0500 Body weight 86.82 kg Deena Tancred DEALER ANALYST Work Phone: [facility] 04-03-2024 10:39-0500 Diastolic blood pressure 82 mm[Hg] Deena Tancred DEALER ANALYST Work Phone: [facility] 04-03-2024 10:39-0500 Heart rate 101 /min Deena Tancred DEALER ANALYST Work Phone: [facility] 04-03-2024 10:39-0500 Respiratory rate 16 /min Deena Riki DEALER ANALYST Work Phone: [facility] 04-03-2024 10:39-0500 SaO2% (BldA) [Mass fraction] 99 % Deena Tancred DEALER ANALYST Work Phone: [facility] 04-03-2024 10:39-0500 Systolic blood pressure 122 mm[Hg] Deena Tancred DEALER ANALYST Work Phone: [facility] 04-01-2024 08:40-0500 Body height 157.5 cm Giovani Hagen MD Work Phone: [facility] 04-01-2024 08:40-0500 Body mass index (BMI) [Ratio] 34.39 kg/m2 Giovani Hagen MD Work Phone: [facility] 04-01-2024 08:40-0500 Body weight 85.28 kg Giovani Hagen MD Work Phone: [facility] 04-01-2024 08:40-0500 Diastolic blood pressure 88 mm[Hg] Giovani Hagen MD Work Phone: [facility] 04-01-2024 08:40-0500 Heart rate 88 /min Giovani Hagen MD Work Phone: [facility] 04-01-2024 08:40-0500 SaO2% (BldA) [Mass fraction] 94 % Giovani Hagen MD Work Phone: [facility] 04-01-2024 08:40-0500 Systolic blood pressure 132 mm[Hg] Giovani Hagen MD Work Phone: [facility] 03-20-2024 16:29-0500 Body mass index (BMI) [Ratio] 34.93 kg/m2 Darwin Matty DO Work Phone: [facility] 03-20-2024 16:29-0500 Body weight 86.64 kg Darwin Matty DO Work Phone: [facility] 03-20-2024 16:29-0500 Diastolic blood pressure 72 mm[Hg] Darwin Matty DO Work Phone: [facility] 03-20-2024 16:29-0500 Systolic blood pressure 118 mm[Hg] Darwin Matty DO Work Phone: [facility] 02-06-2024 09:14-0400 Body height 157.5 cm Giovani Hagen MD Work Phone: [facility] 02-06-2024 09:14-0400 Body mass index (BMI) [Ratio] 34.93 kg/m2 Giovani Hagen MD Work Phone: [facility] 02-06-2024 09:14-0400 Body weight 86.64 kg Giovani Hagen MD Work Phone: [facility] 02-06-2024 09:14-0400 Diastolic blood pressure 88 mm[Hg] Giovani Hagen MD Work Phone: [facility] 02-06-2024 09:14-0400 Heart rate 106 /min Giovani Hagen MD Work Phone: [facility] 02-06-2024 09:14-0400 SaO2% (BldA) [Mass fraction] 99 % Giovani Hagen MD Work Phone: [facility] 02-06-2024 09:14-0400 Systolic blood pressure 130 mm[Hg] Giovani Hagen MD Work Phone: [facility] 01-22-2024 13:37-0400 Diastolic blood pressure 74 mm[Hg] Darwin Matty DO Work Phone: [facility] 01-22-2024 13:37-0400 Systolic blood pressure 112 mm[Hg] Darwin Matty DO Work Phone: [facility] 01-09-2024 16:00-0400 Body height 157.5 cm Giovani Hagen MD Work Phone: [facility] 01-09-2024 16:00-0400 Body mass index (BMI) [Ratio] 34.75 kg/m2 Giovani Hagen MD Work Phone: [facility] 01-09-2024 16:00-0400 Body weight 86.18 kg Giovani Hagen MD Work Phone: [facility] 01-09-2024 16:00-0400 Diastolic blood pressure 84 mm[Hg] Giovani Hagen MD Work Phone: [facility] 01-09-2024 16:00-0400 Heart rate 96 /min Giovani Hagen MD Work Phone: [facility] 01-09-2024 16:00-0400 SaO2% (BldA) [Mass fraction] 98 % Giovani Hagen MD Work Phone: [facility] 01-09-2024 16:00-0400 Systolic blood pressure 124 mm[Hg] Giovani Hagen MD Work Phone: [facility] 12-28-2023 15:17-0400 Blood Pressure Location BHAVESH DEJESUS [facility] 12-28-2023 15:17-0400 Diastolic blood pressure 100 mm[Hg] BHAVESH DEJESUS [facility] 12-28-2023 15:17-0400 Heart rate 101 /min BHAVESH DEJESUS [facility] 12-28-2023 15:17-0400 Respiratory rate 18 /min BHAVESH DEJESUS [facility] 12-28-2023 15:17-0400 Systolic blood pressure 146 mm[Hg] BHAVESH DEJESUS [facility] 12-26-2023 15:07-0400 Body height 157.5 cm Giovani Hagen MD Work Phone: [facility] 12-26-2023 15:07-0400 Body mass index (BMI) [Ratio] 34.2 kg/m2 Giovani Hagen MD Work Phone: [facility] 12-26-2023 15:07-0400 Body weight 84.82 kg Giovani Hagen MD Work Phone: [facility] 12-26-2023 15:07-0400 Diastolic blood pressure 78 mm[Hg] Giovani Hagen MD Work Phone: [facility] 12-26-2023 15:07-0400 Heart rate 98 /min Giovani Hagen MD Work Phone: [facility] 12-26-2023 15:07-0400 SaO2% (BldA) [Mass fraction] 98 % Giovani Hagen MD Work Phone: [facility] 12-26-2023 15:07-0400 Systolic blood pressure 112 mm[Hg] Giovani Hagen MD Work Phone: [facility] 12-19-2023 15:01-0400 Body height 157.5 cm Solo Mora MD Work Phone: [facility] 12-19-2023 15:01-0400 Body mass index (BMI) [Ratio] 34.39 kg/m2 Solo Mora MD Work Phone: [facility] 12-19-2023 15:01-0400 Body weight 85.28 kg Solo Mora MD Work Phone: [facility] 12-19-2023 15:01-0400 Diastolic blood pressure 91 mm[Hg] Solo Mora MD Work Phone: [facility] 12-19-2023 15:01-0400 Heart rate 94 /min Solo Mora MD Work Phone: [facility] 12-19-2023 15:01-0400 Systolic blood pressure 127 mm[Hg] Solo Mora MD Work Phone: [facility] 11-02-2022 13:10-0400 Body height 157.5 cm Samuel Freeman MD Work Phone: [facility] 11-02-2022 13:10-0400 Body weight 71 kg Samuel Freeman MD Work Phone: [facility] 11-02-2022 13:10-0400 Diastolic blood pressure 97 mm[Hg] Samuel Freeman MD Work Phone: [facility] 11-02-2022 13:10-0400 Heart rate 100 /min Samuel Freeman MD Work Phone: [facility] 11-02-2022 13:10-0400 Systolic blood pressure 141 mm[Hg] Samuel Freeman MD Work Phone: [facility] 08-31-2022 15:30-0400 Diastolic blood pressure 91 mm[Hg] Carol Winn MD Work Phone: [facility] 08-31-2022 15:30-0400 Heart rate 99 /min Carol Winn MD Work Phone: [facility] 08-31-2022 15:30-0400 Respiratory rate 24 /min Carol Winn MD Work Phone: [facility] 08-31-2022 15:30-0400 SaO2% (BldA) [Mass fraction] 97 % Carol Winn MD Work Phone: [facility] 08-31-2022 15:30-0400 Systolic blood pressure 140 mm[Hg] Carol Winn MD Work Phone: [facility] 08-31-2022 14:10-0400 Body height 157.5 cm Carol Winn MD Work Phone: [facility] 08-31-2022 14:10-0400 Body mass index (BMI) [Ratio] 33.84 kg/m2 Carol Winn MD Work Phone: [facility] 08-31-2022 14:10-0400 Body weight 83.92 kg Carol Winn MD Work Phone: [facility] 06-30-2022 12:40-0500 Diastolic blood pressure 85 mm[Hg] Carol Winn MD Work Phone: [facility] 06-30-2022 12:40-0500 Heart rate 70 /min Carol Winn MD Work Phone: [facility] 06-30-2022 12:40-0500 Respiratory rate 12 /min Carol Winn MD Work Phone: [facility] 06-30-2022 12:40-0500 SaO2% (BldA) [Mass fraction] 100 % Carol Winn MD Work Phone: [facility] 06-30-2022 12:40-0500 Systolic blood pressure 120 mm[Hg] Carol Winn MD Work Phone: [facility] 06-30-2022 11:18-0500 Body height 157.5 cm Carol Winn MD Work Phone: [facility] 06-30-2022 11:18-0500 Body mass index (BMI) [Ratio] 33.84 kg/m2 Carol Winn MD Work Phone: [facility] 06-30-2022 11:18-0500 Body weight 83.92 kg Carol Winn MD Work Phone: [facility] 05-27-2022 11:29-0500 Body weight 85.73 kg Carol Winn MD Work Phone: [facility] 05-27-2022 11:29-0500 Diastolic blood pressure 92 mm[Hg] Carol Winn MD Work Phone: [facility] 05-27-2022 11:29-0500 Heart rate 102 /min Carol Winn MD Work Phone: [facility] 05-27-2022 11:29-0500 Systolic blood pressure 145 mm[Hg] Carol Winn MD Work Phone: [facility] 05-03-2022 15:30-0500 Body height 158.75 cm Imad Asaad Other [employer] Other 05-03-2022 15:30-0500 Body mass index (BMI) [Ratio] 34.55 kg/m2 Imad Asaad Other [employer] Other 05-03-2022 15:30-0500 Body weight 87.09 kg Imad Asaad Other [employer] Other 05-03-2022 15:30-0500 Diastolic blood pressure 91 mm[Hg] Imad Asaad Other [employer] Other 05-03-2022 15:30-0500 Systolic blood pressure 130 mm[Hg] Imad Asaad Other [facility] Other 05-03-2022 14:47-0500 Body weight 0 kg MD Giovani aHgen Work Phone: [facility] Encounters Encounter Date Encounter Type Care Provider Facility Start: 12-31-2025 ambulatory Iliana Bela Facility:[facility] [place] Start: 01-06-2025 End: 01-06-2025 Bamboo Real Time Translationheet [facility] Start: 01-06-2025 End: 01-06-2025 NOZAduane Hagen MD [facility] Start: 01-06-2025 End: 01-06-2025 ambulatory [facility] Comment on above: Testing Start: 01-06-2025 End: 01-06-2025 Patient encounter status Giovani Hagen MD Work Phone: [facility] Work Phone: Start: 01-06-2025 End: 01-06-2025 Periodic preventive med est patient 18-39 yrs Giovani Hagen MD Work Phone: [facility] Comment on above: Well adult health check (Primary Dx); Chest pain, unspecified type; Elevated liver enzymes; Type 2 diabetes mellitus without complication, without long-term current use of insulin (HCC) Start: 12-31-2024 End: 12-31-2024 ambulatory Ilianabety Obriena Facility:[facility] Start: 12-31-2024 End: 12-31-2024 Patient encounter procedure Iliana Cramer [facility] Start: 12-30-2024 End: 12-30-2024 ambulatory Madhuri MISHRA Facility:[facility] [place] Start: 12-30-2024 End: 12-30-2024 Bamboo flowsheet Milton Fraire DPM FACFAS Work Phone: [facility] Start: 12-30-2024 End: 12-30-2024 Bamboo flowsheet Milton Fraire DPM FACFAS Work Phone: [facility] Start: 12-30-2024 End: 12-30-2024 Office outpatient visit 15 minutes Milton Fraire DPM FACFAS Work Phone: [facility] Comment on above: Other synovitis and tenosynovitis, right ankle and foot (Primary Dx); Right foot pain; Other enthesopathy of right foot and ankle Start: 12-30-2024 End: 12-30-2024 ambulatory MILTON FRAIRE Not Available Start: 12-30-2024 End: 12-30-2024 Patient encounter procedure Emma Ying APRN.TEACHERS AIDE Work Phone: Gynecology Comment on above: Chronic pelvic pain in female (Primary D x); Other specified dyspareunia; Pelvic pain in female; High-tone pelvic floor dysfunction; Vulvodynia; Stress incontinence; Irritable bowel syndrome with constipation; Vaginal dryness Start: 12-30-2024 End: 12-30-2024 ambulatory JAVY BOUDREAUX Facility:[facility] Start: 12-26-2024 End: 12-26-2024 Office outpatient visit 25 minutes Jatin Cabrera MD Work Phone: [facility] Comment on above: Lumbar radiculopathy (Primary Dx); Numbness and tingling; Atypical migraine Start: 12-26-2024 End: 12-26-2024 ambulatory JATIN CABRERA Not Available Start: 12-16-2024 End: 12-16-2024 Telephone encounter Sandy JUSTICE Work Phone: [facility] Comment on above: dose correction on med Start: 12-16-2024 End: 12-16-2024 Office outpatient visit 25 minutes Giovani Hagen MD Work Phone: [facility] Comment on above: Nonalcoholic steatohepatitis (ENGLISH) ([facility] osman Dx); PTSD (post-traumatic stress disorder) ; Major depressive disorder, recurrent, moderate (HCC); Lumbar radiculopathy; Weight gain; Borderline diabetes; Morbid (severe) obesity due to excess calories (CMS-HCC); Impaired fasting glucose; Obesity, class 2; Body [...] 12-12-2024 Bamboo flowsheet Sandy JUSTICE Work Phone: [facility] [employer] [facility] Start: 12-12-2024 End: 12-12-2024 Bamboo flowsheet Sandy Hammond PA Work Phone: [facility] [employer] Start: 12-12-2024 End: 12-12-2024 Clinisync Result Encounter Sandy JUSTICE Work Phone: [facility] External Department Unsolicited Start: 12-12-2024 End: 12-12-2024 Office outpatient visit 25 minutes Sandy JUSTICE Work Phone: [facility] [place] [employer] Comment on above: Elevated liver enzymes (Primary Dx); Nephrocalcinosis; Bilateral nephrolithiasis; Right ovarian cyst; Hypokalemia; Weight gain; Attention deficit hyperactivity disorder (ADHD), predominantly inattentive type ; History of alcohol dependence (HCC); Impaired fasting glucose; Other fatigue; Anxiety; Other chronic pain Start: 12-12-2024 End: 12-12-2024 ambulatory SANDY HAMMOND Not Available Start: 12-09-2024 End: 12-09-2024 ambulatory MILTON FRAIRE Not Available Start: 10-30-2024 End: 10-30-2024 Reffiona JUSTICE Work Phone: [facility] Comment on above: Anxiety; Bipolar disorder, in partial remission, most recent episode manic (HCC) Start: 10-23-2024 End: 10-23-2024 Clinisync Result Encounter Generic External Data Provider [facility] External Department Unsolicited Start: 10-23-2024 End: 10-23-2024 Clinisync Result Encounter Generic External Data Provider [facility] External Department Unsolicited Start: 10-23-2024 ambulatory MARIO HARPER Facility:[facility] Start: 10-23-2024 End: 10-23-2024 Subsequent hospital visit by physician General Iona Matt Mc Work Phone: Radiology Comment on above: Pelvic floor dysfunction [M62.89] Start: 10-21-2024 End: 10-21-2024 Clinisync Result Encounter Shannon Darden NP Work Phone: [facility] External Department Unsolicited Start: 10-21-2024 End: 10-21-2024 Clinisync Result Encounter Shannon Darden NP Work Phone: [facility] External Department Unsolicited Start: 10-21-2024 ambulatory MARIO HARPER Facility:[facility] Start: 10-21-2024 End: 10-21-2024 Subsequent hospital visit by physician [facility] Work Phone: [facility] Radiology General Comment on above: Pelvic floor dysfunction [M62.89] Start: 10-15-2024 End: 10-15-2024 ambulatory MARIO MEREDITH Facility:[facility] Start: 10-15-2024 End: 10-15-2024 Admission to same day surgery center Mario Harper APRN.TEACHERS AIDE Work Phone: Colorectal Surgery Start: 10-15-2024 End: 10-15-2024 Patient encounter procedure Mario Harper APRN.TEACHERS AIDE Work Phone: Colorectal Surgery Start: 10-11-2024 End: 10-11-2024 ambulatory Lydia Rock PT, DPT Work Phone: [facility] Physical Therapy Start: 10-11-2024 End: 10-11-2024 Patient encounter procedure Lydia Rock PT, DPT Work Phone: [facility] Physical Therapy Comment on above: Muscle spasm (Primary Dx); Pelvic floor dysfunction; Chronic constipation Start: 10-11-2024 End: 10-11-2024 ambulatory LYDIA ROCK Facility:[facility] Start: 10-10-2024 End: 10-10-2024 Bamboo flowsheet Shannon Darden DEALER ANALYST Work Phone: [facility] Start: 10-10-2024 End: 10-10-2024 Bamboo flowsheet Shannon Darden DEALER ANALYST Work Phone: [facility] Start: 10-10-2024 End: 10-10-2024 Office outpatient new 45 minutes Shannon Darden DEALER ANALYST Work Phone: [facility] 210 Comment on above: Numbness and tingling (Primary Dx); Atypical migraine Start: 10-10-2024 End: 10-10-2024 ambulatory SHANNON DARDEN Not Available Start: 10-09-2024 End: 10-09-2024 Patient encounter procedure Mario Harper APRN.TEACHERS AIDE Work Phone: Colorectal Surgery Comment on above: Pelvic floor dysfunction (Primary Dx); Chronic constipation; Gastroparesis Start: 10-09-2024 End: 10-09-2024 ambulatory NOMA DAKHIL Facility:[facility] Start: 10-08-2024 End: 10-08-2024 Bamboo flowsheet Deena Lyn DEALER ANALYST Work Phone: [facility] Start: 10-08-2024 End: 10-08-2024 Bamboo flowsheet Deena Lyn DEALER ANALYST Work Phone: [facility] Start: 10-08-2024 End: 10-08-2024 Refill Deena Lyn DEALER ANALYST Work Phone: [facility] Comment on above: Attention deficit hyperactivity disorder (ADHD), predominantly inattentive type ; Bipolar disorder, in partial remission, most recent episode manic (HCC); Agoraphobia with panic attacks Start: 10-08-2024 End: 10-08-2024 Office outpatient visit 25 minutes Deena Lyn DEALER ANALYST Work Phone: [facility] Comment on [...] 09-25-2024 End: 09-25-2024 Bamboo flowsheet Deena Lyn DEALER ANALYST Work Phone: [facility] Start: 09-25-2024 End: 09-25-2024 Bamboo flowsheet Deena Lyn DEALER ANALYST Work Phone: [facility] Start: 09-25-2024 End: 09-25-2024 Office outpatient visit 25 minutes Deena Lyn DEALER ANALYST Work Phone: [facility] Comment on [...] / Non-visit Giovani Hagen MD Work Phone: [facility] Work Phone: Start: 08-16-2024 End: 08-19-2024 Evaluation and management of inpatient Giovani Hagen MD Work Phone: [address] Work Phone: Start: 08-14-2024 End: 08-14-2024 ambulatory MILTON Gonzalez CORNELIUSCE Not Available Start: 08-14-2024 End: 08-14-2024 Office [...] Start: 08-13-2024 End: 08-13-2024 ambulatory SOLO MORA Facility:[facility] Start: 08-13-2024 End: 08-13-2024 ambulatory SOLO MORA Facility:[facility] Start: 08-13-2024 ambulatory GIOVANI HAGEN Facility:[facility] Start: 08-01-2024 End: 08-01-2024 Office outpatient [...] constipation [K59.04] Start: 07-10-2024 End: 07-10-2024 ambulatory [facility] Work Phone: Obstetrics/Gynecology Start: 07-10-2024 End: 09-05-2024 [...] Unsolicited Start: 05-23-2024 End: 05-24-2024 Orders Only Balfour Rome MD Work Phone: Ambulatory Surgery Comment on above: Results (C diff) Start: 05-22-2024 End: 05-22-2024 ambulatory ILIANA MERCADO Facility:[facility] Start: 05-22-2024 End: 05-22-2024 Clinisync Result [...] Start: 05-15-2024 End: 05-15-2024 Bamboo flowsheet Milton D Dolce DPM FACFAS Work Phone: [facility] Start: 05-15-2024 End: 05-15-2024 Bamboo flowsheet Milton Gonzalez Dolce DPM FACFAS Work Phone: [facility] Start: 05-15-2024 End: 05-15-2024 Office outpatient visit 25 minutes Milton Gonzalez Fraire DPM FACFAS Work Phone: [facility] Comment on above: Peroneal tendon tear, right, initial enc ounter (Primary Dx); Right foot pain; Sprain of anterior talofibular ligament of right ankle, subsequent encounter; Osteochondritis dissecans of ankle, right; Right ankle instability Start: 05-15-2024 End: 05-15-2024 ambulatory MILTON FRAIRE Not Available Start: 05-14-2024 End: 05-14-2024 Transcribe Orders Rosario Mcconnell MD Work Phone: [facility] Comment on above: ENGLISH (nonalcoholic steatohepatitis) (Rosanne osman Dx) Start: 05-09-2024 End: 05-09-2024 Office outpatient visit 15 minutes Giovani Hagen MD Work Phone: [facility] Comment on above: Cervical radiculopathy due to degenerati ve joint disease of spine (Primary Dx) Start: 05-09-2024 End: 05-09-2024 Orders Only Lydia Ann Iggyportia DO Work Phone: Orthopaedics Comment on above: [...] in partial remission, most recent episode manic ([facility]) Start: 05-06-2024 End: 05-06-2024 Telephone encounter Solo [...] Other endometriosis; H/O: hysterectomy Start: 04-30-2024 End: 01-07-2025 Preprocedural examination done Darwin Matty DO Work [...] Department Unsolicited Start: 04-26-2024 End: 04-26-2024 ambulatory IGOVANI HAGEN Facility:[facility] Start: 04-26-2024 End: 04-26-2024 Patient encounter procedure Lydia Ann Allie DO Work Phone: Orthopaedics [...] Office outpatient visit 25 minutes Josephine Gilman DEALER ANALYST Work Phone: [facility] Comment on above: Acute bronchitis with asthma (CMS/HCC) ( Primary Dx) Start: 04-16-2024 End: 04-16-2024 ambulatory RUGEN M HIEU Not Available Start: 04-09-2024 End: 04-09-2024 ambulatory SOLO MORA Facility:[facility] Start: 04-05-2024 End: 04-09-2024 ambulatory [facility] Provider Cardiology Comment on above: Surgical Clearance Start: 04-05-2024 End: 04-05-2024 Telephone encounter Solo Mora MD Work Phone: Cardiology Comment on above: Received Outside Medical Records (Cardio Clearance [facility] [place]) Start: 04-03-2024 End: 04-03-2024 ambulatory DEENA LYN Not Available Start: 04-03-2024 End: 04-03-2024 Office outpatient visit 25 minutes Deena Lyn DEALER ANALYST Work Phone: [facility] Comment on above: Hypokalemia (Primary Dx); Elevated blood sugar; Pre-operative clearance; Acute pain of left shoulder; Obesity (BMI 35.0-39.9 without comorbidity) Start: 04-03-2024 End: 04-03-2024 Preoperative state Deena Lyn DEALER ANALYST Work Phone: [facility] Start: 04-02-2024 End: 04-02-2024 Telephone encounter Solo Mora MD Work Phone: Cardiology Comment on above: Received Outside Medical Records ([facility] [place]) Start: 04-01-2024 End: 04-01-2024 ambulatory RUGEN M HIEU Not Available Start: 04-01-2024 End: 04-01-2024 [...] Start: 03-19-2024 End: 03-19-2024 ambulatory Anitra Lry EYELET MACHINE OPERATOR [facility] Comment on above: Cervical radiculopathy (Primary Dx) Start: 03-11-2024 End: 03-11-2024 ambulatory Arun Hernadez EYELET MACHINE OPERATOR [facility] Comment on above: Cervical radiculopathy (Primary Dx) Start: 03-11-2024 End: 03-11-2024 Bamboo flowsheet Arun Hernadez EYELET MACHINE OPERATOR [facility] Start: 03-11-2024 End: 03-11-2024 Bamboo flowsheet Arun Hernadez EYELET MACHINE OPERATOR [facility] Start: 03-07-2024 End: 03-07-2024 Refill Giovani Hagen MD Work Phone: [facility] Comment on above: Obesity (BMI 35.0-39.9 without comorbidi ty) Start: 03-06-2024 End: 03-07-2024 ambulatory Arun Hernadez EYELET MACHINE OPERATOR [facility] Comment on above: Cervical radiculopathy (Primary Dx) Anxiety; Bipolar disorder, in partial remission, most recent episode manic ([facility]) Start: 02-29-2024 End: 02-29-2024 ambulatory Anitra Lry EYELET MACHINE OPERATOR [facility] Comment on above: Cervical radiculopathy (Primary Dx) Start: 02-29-2024 End: 02-29-2024 Bamboo flowsheet Anitra Odellbley EYELET MACHINE OPERATOR [facility] Start: 02-29-2024 End: 02-29-2024 Bamboo flowsheet Anitra Odellbley EYELET MACHINE OPERATOR [facility] Start: 02-27-2024 End: 02-27-2024 ambulatory Anitra Odellbley EYELET MACHINE OPERATOR [facility] Comment on above: Cervical radiculopathy (Primary Dx) Start: 02-27-2024 End: 02-27-2024 Bamboo flowsheet Anitra Kelbley EYELET MACHINE OPERATOR [facility] Start: 02-27-2024 End: 02-27-2024 Bamboo flowsheet Anitra Kelbley EYELET MACHINE OPERATOR [facility] Start: 02-20-2024 End: 02-20-2024 Refill Audrey Perez LPN [facility] Comment on above: Attention deficit hyperactivity disorder (ADHD), predominantly inattentive type (CMS/HCC) Start: 02-14-2024 End: 02-15-2024 ambulatory Arun Juniorink EYELET MACHINE OPERATOR [facility] Comment on above: Cervical radiculopathy (Primary Dx) Start: 02-14-2024 End: 02-14-2024 Bamboo flowsheet Arun Brink EYELET MACHINE OPERATOR [facility] Start: 02-14-2024 End: 02-14-2024 Bamboo flowsheet Arun Brink EYELET MACHINE OPERATOR [facility] Start: 02-12-2024 End: 02-12-2024 ambulatory Zhen Burgess PT Work Phone: [facility] Comment on above: Cervical radiculopathy (Primary Dx) Start: 02-12-2024 End: 02-12-2024 Bamboo flowsheet Zhen Valentinton PT Work Phone: [facility] Start: 02-12-2024 End: 02-12-2024 Bamboo flowsheet Zhen Valentinton PT Work Phone: [facility] Start: 02-07-2024 End: 02-07-2024 ambulatory Arun Juniorink EYELET MACHINE OPERATOR [facility] Comment on above: Cervical radiculopathy (Primary Dx) Start: 02-07-2024 End: 02-07-2024 Bamboo flowsheet Arun Brink EYELET MACHINE OPERATOR [facility] Start: 02-07-2024 End: 02-07-2024 Bamboo flowsheet Arun Brink EYELET MACHINE OPERATOR [facility] Start: 02-06-2024 End: 02-06-2024 [...] to [facility] PT Eval for cervical radiculopathy; but had [...] procedure BHAVESH DEJESUS [facility] Start: 12-28-2023 End: 12-29-2023 ambulatory [facility] Provider Cardiology Comment on above: Zio Start: 12-26-2023 End: 12-26-2023 Office outpatient visit 25 minutes Giovani Hagen MD Work Phone: [facility] Comment on above: Cervical radiculopathy (Primary Dx); Acute nonintractable headache, unspecified headache type; Nausea and vomiting, unspecified vomiting type Start: 12-19-2023 End: 12-21-2023 Orders Only Solo Mora MD Work Phone: Cardiology Comment on above: Syncope and collapse (Primary Dx) Event (ZIO PATCH) Syncope, unspecified syncope type (Primary Dx) Start: 12-18-2023 End: 02-01-2024 Telephone encounter Benito Kendrick [facility] Comment on above: Lab results Start: 12-13-2023 End: 12-13-2023 Clinisync Result Encounter Generic External Data Provider [facility] External Department Unsolicited Start: 12-13-2023 End: 12-13-2023 Clinisync Result Encounter Generic External Data Provider NOM External Department Unsolicited Start: 12-04-2023 End: 12-12-2024 Patient encounter status Zhen Lupe PT Work Phone: [facility] Start: 11-02-2023 Orders Only Solo Mora [...] 10-26-2022 ambulatory MD Giovani Hagen Work Phone: [facility] Work Phone: Start: 10-26-2022 End: 10-26-2022 Patient encounter procedure MD Giovani Hagen Work Phone: [facility] [place] Work Phone: Start: 10-18-2022 ambulatory Maria Dolores Rodney Corey DO Work Phone: Gastroenterology Start: 10-18-2022 Telephone encounter Maria Dolores Corey DO Work Phone: Gastroenterology Comment on above: Medication Preauthorization ([employer]) Results Start: 10-17-2022 End: 10-17-2022 Patient encounter procedure [facility] Work Phone: Gastroenterology Comment on above: Gastroparesis (Primary Dx) Start: 09-12-2022 End: 09-12-2022 Subsequent hospital visit by physician [facility] Work Phone: [facility] Radiology Molecular Comment on above: Nausea [R11.0] Start: 08-31-2022 End: 08-31-2022 Subsequent hospital visit by physician Carol Winn MD Work Phone: Ambulatory Surgery Comment on above: PUD (peptic ulcer disease) [K27.9] Start: 08-24-2022 Telephone encounter Nurse Jud [facility] Work Phone: Gastroenterology Comment on above: Appointment Start: 07-08-2022 End: 07-08-[address] MADHURI MISHRA . Facility:[facility] Start: 07-06-2022 End: 07-07-[address] MADHURI MISHRA . Facility:[facility] Start: 07-05-2022 End: 07-05-2022 Patient encounter procedure Madhuri MISHRA [facility] Start: 07-04-2022 Orders Only Carol Winn MD Work Phone: Gastroenterology Start: 06-30-2022 End: 06-30-2022 Subsequent hospital visit by physician Carol Winn MD Work Phone: Ambulatory Surgery Comment on above: Bilious vomiting with nausea [R11.14] Start: 06-29-2022 End: 06-30-[address] MADHURI MISHRA . Facility:[facility] Start: 06-29-2022 End: 06-29-2022 Lab Drop off Madhuri MISHRA [facility] Start: 06-23-2022 ambulatory Carol Winn MD Work Phone: Gastroenterology Comment on above: EGD instructions Start: 06-23-2022 E-mail encounter from caregiver Carol Winn MD Work Phone: [facility] Start: 06-16-2022 ambulatory [facility] Provider Gastroenterology Comment on above: Question regarding US ABD RT UPPER QUADR ANT Start: 06-15-2022 End: 06-15-2022 Subsequent hospital visit by physician [facility] Work Phone: [facility] Radiology Ultrasound Comment on above: Liver lesion [K76.9] Start: 06-14-2022 Orders Only Carol Winn MD Work Phone: Ambulatory Surgery Comment on above: Liver lesion (Primary Dx) Results Start: 06-10-2022 ambulatory Diamond Pycraft RT(R) Radiology Ct Scan Comment on above: Radiology CT Start: 06-10-2022 Patient encounter procedure Diamond Pycraft RT(R) [facility] Start: 06-10-2022 End: 06-10-2022 Subsequent hospital visit by physician Ct Prep [facility] Radiology Ct Scan Comment on above: Bilious vomiting with nausea [R11.14] Start: 05-27-2022 End: 05-27-2022 Subsequent hospital visit by physician [facility] Work Phone: [facility] Radiology General Comment on above: SOB (shortness of breath) [R06.02] Start: 05-27-2022 End: 05-27-2022 Patient encounter procedure Carol Winn MD Work Phone: Gastroenterology Comment on above: Fatty liver (Primary Dx); Bilious vomiting with nausea; Right sided abdominal pain; Nausea; History of diverticulitis; SOB (shortness of breath) Start: 05-13-2022 End: 05-13-2022 ambulatory MD Giovani Hagen Work Phone: [facility] Work Phone: Start: 05-13-2022 End: 05-13-2022 Patient encounter procedure MD Giovani Hagen Work Phone: [facility]Dig[facility]ive [facility] Work Phone: Start: 05-03-2022 End: 05-04-2022 ambulatory [employer] Other Start: 05-03-2022 Office consultation new/estab patient 60 min Imad Asaad [facility] Gastroenterology Start: 04-20-2022 End: 04-20-[address] AURORA IRBY . Facility:[facility] Start: 04-06-2022 End: 04-07-[address] GIOVANI HAGEN Facility:[facility] Start: 12-21-2021 End: 12-22-[address] AURORA IRBY . Facility:[facility] Start: 12-10-2021 End: 12-10-2021 Subsequent hospital visit by physician [facility] Ultrasound Comment on above: Elevated LFTs [R79.89] Start: 10-27-2021 End: 10-28-[address] AURORA IRBY . Facility:[facility] Start: 10-20-2021 End: 10-20-2021 ambulatory AYLEEN YESSY . Facility:[facility] Start: 10-19-2021 End: 10-19-[address] AURORA IRBY . Facility:[facility] Start: 09-06-2021 End: 09-07-[address] GIOVANI HAGEN Facility:[facility] Start: 08-27-2021 End: 08-28-[address] GIOVANI HAGEN Facility:[facility] Start: 08-14-2021 End: 08-15-[address] GIOVANI HAGEN Facility:[facility] Start: 11-06-2018 End: 11-09-2018 [facility] Date Procedure Procedure Detail Performing Clinician Start: 12-13-2024 Radex foot complete minimum 3 views Milton D Dolce DPM FACFAS Work Phone: Start: 12-12-2024 MLR HEMOGLOBIN A1C Sandy JUSTICE Work Phone: Start: 10-23-2024 Radiologic exam abdomen 1 view Mario Harper APRN.TEACHERS AIDE Work Phone: Start: 10-23-2024 XR ABDOMEN 1V SUPINE Generic External Data Provider Start: 10-21-2024 MRI HEAD/BRAIN WO/W CONTR Shannon Darden DEALER ANALYST Work Phone: Start: 10-15-2024 [facility] [facility] Mario Harper APRN.TEACHERS AIDE Work Phone: Start: 07-10-2024 Us pelvic nonobstetric real-time image complete Javy Boudreaux MD Work Phone: Start: 07-03-2024 Radex ankle complete minimum 3 views Milton D Dolce DPM FACFAS Work Phone: Start: 06-25-2024 RECURRENT VAGINITIS (HTRX) Darwin Roth O Work Phone: Start: 05-27-2024 MLR HEMOGLOBIN A1C Darwin Starr DO Work Phone: Start: 05-23-2024 ALL CBC [...] ALL CBC WITH AUTO DIFF Dez R Aaronz DPM Work Phone: Start: 04-18-2023 History of [...] DTaP,Tdap,Td Vaccine (7 - Td or Tdap) [facility] Start: 03-18-2025 End: 03-18-2025 Patient encounter procedure 03/18/2025 9:00 AM EST Office Visit [facility] [place] [facility] [address] [facility] [address] [place] [address] Giovani Hagen MD [address] [facility] [address] [place] [address] [facility] [place] [facility] Start: 02-28-2025 End: 02-28-2025 Patient encounter procedure 02/28/2025 9:00 AM EST Office Visit [facility] [address] [facility] [address] [place] [address] Jatin Cabrera MD [address] [facility] [address] [address] [facility] Start: 01-15-2025 End: 01-15-2025 Clinical Support 01/15/2025 4:00 PM EDT Clinical Support [facility] [address] [facility] [place] [phone] Milton Fraire, DPM FACFAS [address] [facility] [place] [address] [facility] Start: 12-30-2024 End: 12-30-2024 [...] AM EDT Office Visit [facility] [place] [facility] [address] [facility] [address] [place] [address] Giovani Hagen MD [address] [facility] [address] [place] [address] [facility] [place] [facility] Start: 12-13-2024 End: 12-13-2024 Patient encounter procedure 12/13/2024 9:40 AM EDT Office Visit [facility] [address] [place] [address] Milton Fraire, DPM FACFAS [address] [place] [address] [facility] Start: 12-12-2024 End: 12-12-2024 Patient encounter procedure 12/12/2024 10:30 AM EDT Office Visit [facility] [place] [facility] [address] [facility] [address] [place] [address] Sandy Hammond PA [address] [facility] [address] [place] [address] Elevated liver enzymes (Primary Dx); Nephrocalcinosis; Bilateral nephrolithiasis; Right ovarian cyst; Hypokalemia [facility] [place] [facility] Comment on above: Elevated liver enzymes (Primary Dx); Nephrocalcinosis; Bilateral nephrolithiasis; Right ovarian cyst; Hypokalemia Start: 11-18-2024 End: 11-18-2024 Patient encounter procedure 11/18/2024 12:00 PM EDT Procedure Visit [facility] [address] [facility] [address] [place] [address] [facility] Start: 11-04-2024 End: 11-04-2024 Patient encounter procedure 11/04/2024 2:00 PM EDT Office Visit Gynecology [address] [place] [address] Emma Ying, [employer] INTERMODAL TRUCK DRIVER.TEACHERS AIDE [address] [place], [place] [id number] Other specified dyspareunia Gynecology Comment on above: Other specified dyspareunia Start: 10-29-2024 End: 10-29-2024 Patient encounter procedure 10/29/2024 10:00 AM EDT Procedure [facility] [address] [place] [id number] [facility] [address] Start: 10-15-2024 End: 10-15-2024 Admission to same day surgery center 10/15/2024 10:30 AM EDT Procedure Colorectal Surgery [address] [facility] [address] [place], [place] [id number] Mario Harper, [employer] INTERMODAL TRUCK DRIVER.TEACHERS AIDE [address] [place], [place] [id number] manometry Colorectal Surgery Comment on above: manometry Start: 10-10-2024 End: 10-10-2025 EMG 1 Extremeity EMG 1 [facility] Neurology Routine Numbness and tingling Expected: 10/10/2024 (Approximate), Expires: 10/10/2025 [facility] Comment on above: Expected: 10/10/2024 (Approximate), Expi res: 10/10/2025 Start: 10-10-2024 End: 10-10-2025 MR Brain WO and W contrast IV MR brain w and wo contrast routine Imaging Routine Numbness and tingling Atypical migraine Expected: 10/10/2024 (Approximate), Expires: 10/10/2025 [facility] Work Phone: Comment on above: Expected: 10/10/2024 (Approximate), Expi res: 10/10/2025 Start: 10-10-2024 End: 10-10-[address] [facility] [address] Comment on above: Arrived Start: 09-25-2024 End: 09-25-2024 Patient encounter procedure 09/25/2024 10:30 AM EDT Office Visit [facility] [address] [facility] [address] [place] [address] Deena Lyn NP [address] [facility] [address] [place] [address] Arrived [facility] Comment on above: Arrived Start: 09-17-2024 End: 09-17-2024 Patient encounter procedure [facility] Comment on above: Arrived Start: 09-04-2024 End: 09-04-2024 Patient encounter procedure 09/04/2024 4:40 PM EDT Office Visit [facility] [address] [facility] [address] Milton Fraire, DPM FACFAS [address] [facility] [place] [address] [facility] Start: 09-02-2024 End: 09-02-2024 Patient encounter procedure 09/02/2024 3:00 PM EDT Office Visit [facility] [address] [facility] [address] [place] [address] Giovani Hagen MD [address] [place] [facility] [address] [place] [address] [facility] CI FM Start: 08-21-2024 End: 08-21-2024 Patient encounter procedure 08/21/2024 4:00 PM EDT Office Visit [facility] [address] [facility] [place] [address] Milton Fraire, DPM FACFAS [address] [facility] [address] N[facility] NMA POD Start: 08-19-2024 [facility] Start: 08-16-2024 Hospital admission [facility] Start: 08-16-2024 [facility] Start: 08-14-2024 End: 08-14-2024 Patient encounter procedure 08/14/2024 4:10 PM EDT Office Visit [facility] NMA POD [address] [place] [address] Milton Fraire, DPM FACFAS [address] [place] [address] N[facility] NMA POD Start: 08-13-2024 End: 08-13-2024 Patient encounter procedure 08/13/2024 2:30 PM EDT Office Visit Cardiology [address] [place] [address] Solo Mora MD [address] [place], [place] [phone] Dx: Syncope, unspecified syncope type [R55] Cardiology Comment on above: Dx: Syncope, unspecified syncope type [R 55] Start: 08-13-2024 End: 08-13-2024 Patient encounter procedure 08/13/2024 12:30 PM EDT Office Visit Cardiology [address] [place] [address] Dx: Syncope, unspecified syncope type [R55] Cardiology Comment on above: Dx: Syncope, unspecified syncope type [R 55] Start: 08-13-2024 End: 08-13-2024 Patient encounter procedure 08/13/2024 10:30 AM EDT Office Visit Cardiology [address] [place] [address] Dx: Syncope, unspecified syncope type [R55] Cardiology Comment on above: Dx: Syncope, unspecified syncope type [R 55] Start: 08-01-2024 End: 08-01-2024 Patient encounter procedure 08/01/2024 2:30 PM EDT Office Visit [facility] CI FM [address] [facility] [address] [place] [phone] Giovani Hagen MD [address] [facility] [address] [place] [address] [facility] CI FM Start: 07-26-2024 End: 07-26-2024 ambulatory 07/26/2024 8:40 AM EDT [facility] Gastroenterology [address] [place] [address] [place] [address] [place] [phone] Elevated LFT, per Pt Gastroenterology Comment on above: Elevated LFT, per Pt Start: 07-24-2024 End: 07-24-2024 Patient encounter procedure 07/24/2024 3:50 PM EDT Office Visit [facility] NMA POD [address] [place] [phone] Milton Fraire, DPM FACFAS [address] [facility] [place] [address] N[facility] NMA POD Start: 07-04-2024 End: 07-04-2024 Patient encounter procedure 07/04/2024 3:30 PM EDT Office Visit [facility] CI FM [address] [facility] [address] [place] [address] Giovani Hagen MD [address] [facility] [address] [place] [address] [facility] CI FM Start: 07-03-2024 End: 07-03-2024 Patient encounter procedure 07/03/2024 2:20 PM EDT Office Visit [facility] NMA POD [address] [place] [address] Milton Fraire, DPM FACFAS [facility] [place] [address] NOMS NMA POD Start: 06-26-2024 End: 06-26-2024 Patient encounter procedure 06/26/2024 2:50 PM EST Office Visit [facility] NMA POD [address] [place] [phone] Milton Fraire, DPM FACFAS [address] [facility] [place] [address] NOMS NMA POD Start: 06-25-2024 End: 06-25-2024 Patient encounter procedure [facility] BCP OB Comment on above: Arrived Start: 06-24-2024 End: 06-24-2024 Patient encounter procedure 06/24/2024 10:40 AM EST Office Visit [facility] NMA POD [address] [place] [address] Milton Fraire, DPM FACFAS [address] [facility] [place] [address] N[facility] NMA POD Start: 06-19-2024 End: 06-19-2024 Patient encounter procedure [facility] SC POD Comment on above: Arrived Start: 06-17-2024 End: 06-17-2024 Patient encounter procedure 06/17/2024 10:30 AM EST Office Visit Orthopaedics [address] [place] [address] Naren Verdugo PA-C [address] [place] [phone] 1st post op Rt ankle arthroscopy/internal brace 06/04/24 Orthopaedics Comment on above: 1st post op Rt ankle arthroscopy/interna l brace 06/04/24 Start: 06-12-2024 End: 06-12-2024 ambulatory 06/12/2024 1:45 PM EST Results Only Cardiology [address] [place] [address] Dx: Syncope, unspecified syncope type [R55] Cardiology Comment on above: Dx: Syncope, unspecified syncope type [R 55] Start: 06-12-2024 End: 06-12-2024 Patient encounter procedure Cardiology Comment on above: Dx: Syncope, unspecified syncope type [R 55] Start: 06-10-2024 End: 06-10-2024 Patient encounter procedure 06/10/2024 9:40 AM EST Appointment [facility] [address] [facility] [address] [place] [address] Rosario Mcconnell I, MD [address] [facility] [address] [place] [address] [facility] Comment on above: CRIidiag RESEARCH - CORCEPT Start: 06-04-2024 End: 06-04-2024 Patient encounter procedure 06/04/2024 9:40 AM EST Office Visit [facility] NMA POD [address] [place] [address] Milton Fraire, DPM FACFAS [address] [facility] [place] [address] NOMS NMA POD Start: 06-04-2024 End: 06-04-2024 Admission to same day surgery center 06/04/2024 7:30 AM EST - 06/04/2024 10:10 AM EST Surgery [facility] Surgery [address] [place] [address] Lydia Kelley DO [address] [place], [place] [phone] REPAIR ANKLE LIGAMENT SECONDARY DISRUPTED, COLLATERAL [facility] Comment on above: REPAIR ANKLE LIGAMENT SECONDARY DISRUPTE D, COLLATERAL Start: 06-04-2024 End: 06-04-2024 Repair secondary disrupted ligament ankle coltrl REPAIR ANKLE LIGAMENT SECONDARY DISRUPTED, COLLATERAL Right ankle instability 06/04/2024 7:30 AM EST ME OR Start: 06-04-2024 Subsequent hospital visit by physician 06/04/2024 7:30 AM EST Hospital Encounter [facility] [address] [place] [address] Lydia Kelley DO [address] [place] [address] 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] [facility] Comment on above: 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] Start: 05-31-2024 End: 05-31-2024 ambulatory 05/31/2024 1:15 PM EST [facility] Orthopaedics [address] [address] Lydia Kelley DO [address] [place] [address] 4 week f/u, right ankle Orthopaedics Comment on above: 4 week f/u, right ankle Start: 05-31-2024 End: 05-31-2024 Patient encounter procedure 05/31/2024 9:45 AM EST Office Visit Orthopaedics [address] [facility] [address] [place] [address] Lydia Kelley [address] [place] [address] 4 week f/u, right ankle Orthopaedics Comment on above: 4 week f/u, right ankle Start: 05-29-2024 End: 05-29-2024 Patient encounter procedure [facility] BCP OB Comment on above: Arrived Start: 05-22-2024 End: 05-22-2024 Patient encounter procedure 05/22/2024 2:30 PM EST Appointment Ambulatory Surgery [address] [place] [address] [place] [address] [place] [address] BRBPR (bright red blood per rectum) [K62.5] Ambulatory Surgery Comment on above: BRBPR (bright red blood per rectum) [K62 .5] Start: 05-15-2024 End: 05-15-2024 Patient encounter procedure [facility] NMA POD Comment on above: Arrived Start: 05-08-2024 End: 05-08-2024 Patient encounter procedure 05/08/2024 3:10 PM EST Office Visit [facility] SC POD [address] [place] [address] Prateek Pedraza DPM [address] [address] N[facility] SC POD Start: 05-05-2024 End: 05-05-2024 Anesthesia consultation 05/05/2024 11:59 PM EST Anesthesia Event Ambulatory Surgery [address] [place] [address] Sharla Bonds APRN.[facility] [facility] M [address] [place] [address] Ambulatory Surgery Start: 05-02-2024 End: 05-02-2024 ambulatory 05/02/2024 12:00 PM EST Procedure Gastroenterology [address] [place] [address] fibroscan Gastroenterology Comment on above: fibroscan Start: 05-01-2024 End: 05-01-2024 Patient encounter procedure 05/01/2024 4:30 PM EST Office Visit [facility] SC POD [address] [place] [address] Prateek Pedraza DPM [address] [address] N[facility] SC POD Start: 04-30-2024 End: 04-30-2024 Patient encounter procedure [facility] BCP OB Comment on above: Arrived Start: 04-26-2024 End: 04-26-2024 Patient encounter procedure 04/26/2024 3:05 PM EST Office Visit Gastroenterology [address] [place] [address] Iliana Mercado PA-C [address] [place] [address] Elevated LFT, per Pt Gastroenterology Comment on above: Elevated LFT, per Pt Start: 04-26-2024 End: 07-26-2024 Alpha 1 antitrypsin [Mass/volume] in Serum or Plasma [facility] Comment on above: Expected: 04/26/2024, Expires: Start: 04-26-2024 End: 07-26-2024 [id number] [Mass/volume] in Serum or Plasma [facility] Work Phone: Comment on above: Expected: 04/26/2024, Expires: Start: 04-26-2024 End: 07-26-2024 DENY BY IFA WITH REFLEX [facility] Comment on above: Expected: 04/26/2024, Expires: Start: 04-26-2024 End: 07-26-2024 Ceruloplasmin [Mass/volume] in Serum or Plasma [facility] Comment on above: Expected: 04/26/2024, Expires: Start: 04-26-2024 End: 07-26-2024 Hepatitis A virus IgM Ab [Presence] in Serum [facility] Comment on above: Expected: 04/26/2024, Expires: Start: 04-26-2024 End: 07-26-2024 Hepatitis B virus core IgM Ab [Presence] in Serum [facility] Comment on above: Expected: 04/26/2024, Expires: Start: 04-26-2024 End: 07-26-2024 Hepatitis B virus surface Ag [Presence] in Serum [facility] Comment on above: Expected: 04/26/2024, Expires: Start: 04-26-2024 End: 07-26-2024 Hepatitis C virus Ab [Presence] in Serum [facility] Comment on above: Expected: 04/26/2024, Expires: Start: 04-26-2024 End: 07-26-2024 Mitochondria Ab [Presence] in Serum by Immunofluorescence [facility] Comment on above: Expected: 04/26/2024, Expires: Start: 04-26-2024 End: 07-26-2024 Smooth muscle Ab [Presence] in Serum [facility] Comment on above: Expected: 04/26/2024, Expires: Start: 04-03-2024 End: 04-03-2025 Hemoglobin A1c/Hemoglobin.total in Blood Hemoglobin A1c Lab Routine Elevated blood sugar Expected: 04/03/2024 (Approximate), Expires: 04/03/2025 [facility] Comment on above: Expected: 04/03/2024 (Approximate), Expi [...] Visit [facility] CI FM [address] [facility] [address] [place] [address] Giovani Hagen MD [address] [facility] [address] [place] [address] [facility] CI FM Start: 03-27-2024 End: 03-27-2024 ambulatory 03/27/2024 4:00 PM EST Treatment [facility] PT [address] [facility] [address] [place] [address] Zhen Burgess, PT [address] [facility] [address] [place] [address] [facility] CI PT Start: 03-25-2024 End: 03-25-2024 ambulatory 03/25/2024 4:00 PM EST Treatment [facility] CI PT [address] [facility] [address] [place] [address] Arun Hernadez, CINDY [facility] CI PT Start: 03-20-2024 End: 03-20-2024 Patient encounter procedure 03/20/2024 4:00 PM EST Office Visit [facility] BCP OB [address] [place] [phone] Darwin Starr, [address] [facility] [place] [address] [facility] BCP OB Start: 03-19-2024 End: 03-19-2024 ambulatory 03/19/2024 4:00 PM EST Treatment [facility] PT [address] [facility] [address] [place] [address] Anitra Ricci, EYELET MACHINE OPERATOR [facility] CI PT Start: 03-13-2024 End: 03-13-2024 ambulatory 03/13/2024 4:30 PM EST Treatment [facility] CI PT [address] [facility] [address] [place] [address] Zhen Burgess, PT [address] [facility] [place] [address] [facility] CI PT Start: 03-11-2024 End: 03-11-2024 ambulatory [facility] CI PT Comment on above: Arrived Start: 03-06-2024 End: 03-06-2024 ambulatory [facility] CI PT Start: 03-04-2024 End: 03-04-2024 ambulatory 03/04/2024 9:00 AM EST Treatment [facility] PT [address] [facility] [address] [place] [address] Arun Hernadez EYELET MACHINE OPERATOR [facility] CI PT Start: 02-29-2024 End: 02-29-2024 ambulatory [facility] CI PT Comment on above: Arrived Start: 02-27-2024 End: 02-27-2024 ambulatory [facility] CI PT Comment on above: Arrived Start: 02-21-2024 End: 02-21-2024 ambulatory 02/21/2024 4:30 PM EDT Treatment [facility] PT [address] [facility] [address] [place] [address] Anitra Ricci EYELET MACHINE OPERATOR [facility] PT Start: 02-14-2024 End: 02-14-2024 ambulatory [facility] CI PT Start: 02-13-2024 End: 02-13-2024 Patient encounter procedure Cardiology Comment on above: Dx: Syncope, unspecified syncope type [R 55] Start: 02-13-2024 End: 02-13-2024 ambulatory 02/13/2024 2:00 PM EDT Results Only Cardiology [address] [place] [address] Dx: Syncope, unspecified syncope type [R55] Cardiology [...] EDT Office Visit [facility] BCP OB [address] [facility] [place] [phone] Darwin Starr DO [address] [facility] [place] [address] [facility] BCP OB Start: 01-09-2024 End: 01-09-2024 Patient encounter procedure 01/09/2024 4:00 PM EDT Office Visit [facility] FM [address] [facility] [address] [place] [address] Giovani Hagen MD [address] [facility] [address] [place] [address] [facility] CI FM Start: 01-09-2024 End: 01-08-2025 [...] 12-24-2023 Covid-19 Vaccine () Covid-19 Vaccine () [facility] Start: 12-24-2023 Covid-19 Vaccine () Covid-19 Vaccine () [facility] Start: 12-24-2023 Influenza [facility] Start: 12-19-2023 End: 12-19-2023 ambulatory 12/19/2023 2:15 PM EDT Results Only Cardiology [address] [place] [address] Exertional Syncope. Referring: Dr. Shilo Dillon Cardiology Comment on above: Exertional Syncope. Referring: Dr. Shilo Dillon Start: 12-19-2023 End: 12-19-2023 Patient encounter procedure Cardiology Comment on above: Exertional Syncope. Referring: Dr. Shilo Dillon Start: 04-24-2023 Behavioral Health Screening Behavioral Health Screening [facility] Start: 12-23-2022 Covid-19 Vaccine () Covid-19 Vaccine () [facility] Start: 12-23-2022 Influenza vaccination [facility] Start: 05-13-2022 [facility] Start: 04-24-2022 DEPRESSION ASSESSMENT DEPRESSION ASSESSMENT [facility] Start: 12-28-2021 COVID-19 VACCINE (4 - Booster for Pfizer series) COVID-19 VACCINE (4 - Booster for Pfizer series) [facility] Start: 12-28-2021 COVID-19 VACCINE (4 - Pfizer series) COVID-19 VACCINE (4 - Pfizer series) [facility] Start: 12-23-2021 Influenza vaccination INFLUENZA (#1) [facility] Start: 02-06-2020 Urine microalbumin profile DTaP,Tdap,Td Vaccine (6 - Td or Tdap) [facility] Start: 2018 HPV TESTING HPV TESTING [facility] Start: 2009 PAP TESTING PAP TESTING [facility] Start: 2009 Screening for malignant neoplasm of cervix Cervical Cancer Screening [facility] Start: 09-29-2007 Urine microalbumin profile DTAP,TDAP,TD (1 - Tdap) [facility] Start: 11-30-2006 HPV Vaccine (2 - 3-dose series) HPV Vaccine (2 - 3-dose series) [facility] Start: 2006 Anxiety Screening Anxiety Screening [facility] Start: 2006 Depression Screening Depression Screening [facility] Start: 2006 HEPATITIS C SCREENING HEPATITIS C SCREENING [facility] Start: 2006 Hepatitis C screening Hepatitis C Screening [facility] Start: 2006 HIV SCREENING HIV SCREENING [facility] Start: 2006 HIV screening HIV Screening [facility] Start: 1988 HEPATITIS B (1 of 3 - 3-dose series) HEPATITIS B (1 of 3 - 3-dose series) [facility] 25-hydroxyvitamin D3 [Mass/volume] in Serum or Plasma Vitamin D 25 hydroxy Total Lab Routine Weight gain Ordered: 12/12/2024 [facility] Comment on above: Ordered: 12/12/2024 Actin smooth muscle IgG Ab [Units/volume] in Serum [facility] End: 10-09-2025 ADULT [place] ANORECTAL MANOMETRY [facility] ANORECTAL MANOMETRY Endoscopy Routine Pelvic floor dysfunction Chronic constipation 1 Occurrences starting 10/09/2024 until 10/09/2025 [facility] Work Phone: Comment on above: 1 Occurrences starting 10/09/2024 until 10/09/2025 [facility] ANORECTAL MANOMETRY [facility] ANORECTME MANOMETRY Endoscopy Routine Pelvic floor dysfunction Chronic constipation 10/15/2024 [facility] Work Phone: Alpha 1 antitrypsin [Mass/volume] in Serum or Plasma [facility] Alpha 1 antitrypsin phenotyping [Identifier] in Serum or Plasma by Immunofixation [facility] CBC W Auto Different ial panel - Blood CBC and differential Lab Routine Weight gain History of alcohol dependence (HCC) Other fatigue Ordered: 12/12/2024 [facility] Comment on above: Ordered: 12/12/2024 Ceruloplasmin [Mass/volume] in Serum or Plasma [facility] CHLAMYDIA TRACHOMATI S (GENITO/STI) CHLAMYDIA TRACHOMATIS (GENITO/STI) Lab Routine Pain in female genitalia on intercourse Cystitis Ordered: 06/25/2024 [facility] Comment on above: Ordered: 06/25/2024 End: 05-23-2024 CLOSTRIDIUM DIFFICILE TOXIN BY EIA [facility] Comment on above: ONCE for 1 Occurrences starting 05/23/19 until 05/23/2024 Cobalamin (Vitamin B 12) [Mass/volume] in Serum or Plasma Vitamin B12 Lab Routine Elevated liver enzymes Weight gain History of alcohol dependence (HCC) Other fatigue Ordered: 12/12/2024 [facility] Comment on above: Ordered: 12/12/2024 Comprehensive metabo lic 2000 panel - Serum or Plasma Comprehensive metabolic panel Lab Routine Elevated liver enzymes Hypokalemia Weight gain History of alcohol dependence (HCC) Impaired fasting glucose Ordered: 12/12/2024 [facility] [employer] Comment on above: Ordered: 12/12/2024 End: 06-26-2023 Ct abdomen & pelvis w/o contrast material CT ABD/PEL WO [facility]CON Radiology Routine Bilious vomiting with nausea Right sided abdominal pain Nausea 1 Occurrences starting 05/27/2022 until 06/26/2023 [facility] Work Phone: Comment on above: 1 Occurrences starting 05/27/2022 until 06/26/2023 End: 05-14-2025 CT Guidance for core needle biopsy of Liver LIVER BIOPSY NEEDLE Endoscopy Routine ENGLISH (nonalcoholic steatohepatitis) 1 Occurrences starting 05/14/2024 until 05/14/2025 [facility] Work Phone: Comment on above: 1 Occurrences starting 05/14/2024 until 05/14/2025 Cytology Cervical or vaginal smear or scraping study Pap Smear Pathology and Cytology Routine Well woman exam with routine gynecological exam Ordered: 03/20/2024 [facility] [employer] Work Phone: Comment on above: Ordered: 03/20/2024 End: 11-01-2024 ECG COMPLETE ECG COMPLETE ECG Routine Gastroparesis 1 Occurrences starting 11/02/2023 until 11/01/2024 [facility] Work Phone: Comment on above: 1 Occurrences starting 11/02/2023 until 11/01/2024 End: 12-18-2024 ECG COMPLETE ECG COMPLETE ECG Routine Syncope and collapse 1 Occurrences starting 12/19/2023 until 12/18/2024 [facility] Work Phone: Comment on above: 1 Occurrences starting 12/19/2023 until 12/18/2024 End: 05-27-2023 EGD DIAGNOSTIC EGD DIAGNOSTIC Endoscopy Routine Bilious vomiting with nausea Right sided abdominal pain 1 Occurrences starting 05/27/2022 until 05/27/2023 [facility] Work Phone: Comment on above: 1 Occurrences starting 05/27/2022 until 05/27/2023 Electrogastrography dx transcutaneous EGG (ELECTROGASTROGRAPHY) Procedures Routine Gastroparesis Ordered: 09/14/2022 [facility] Work Phone: Comment on above: Ordered: 09/14/2022 ENTERIC BACTERIAL PA BELEM BY PCR [facility] Work Phone: Comment on above: Release Upon Ordering for 1 Occurrences starting 05/22/2024 End: 04-26-2025 Flexible sigmoidoscopy study COLONOSCOPY DIAGNOSTIC Endoscopy Routine BRBPR (bright red blood per rectum) 1 Occurrences starting 04/26/2024 until 04/26/2025 [facility] Comment on above: 1 Occurrences starting 04/26/2024 until 04/26/2025 Folate [Mass/volume] in Serum or Plasma Folate Lab Routine Elevated liver enzymes Weight gain History of alcohol dependence (HCC) Other fatigue Ordered: 12/12/2024 [facility] Comment on above: Ordered: 12/12/2024 Hemoglobin A1c/Hemoglobin.total in Blood Hemoglobin A1c Lab Routine Weight gain Impaired fasting glucose Ordered: 12/12/2024 [facility] Comment on above: Ordered: 12/12/2024 Hepatitis A virus Ab [Presence] in Serum by Immunoassay [facility] HFE gene mutations f ound [Identifier] in Blood or Tissue by Molecular genetics method Nominal [facility] Homogenous nuclear A b pattern [Titer] in Serum [facility] Human papilloma viru s DNA [Presence] in Unspecified specimen by Probe with amplification HPV DNA probe, amplified Microbiology Routine Well woman exam with routine gynecological exam Ordered: 03/20/2024 [facility] Comment on above: Ordered: 03/20/2024 IgG [Mass/volume] in Serum or Plasma [facility] Iron + transferrin + TIBC Iron + transferrin + TIBC Lab Routine Elevated liver enzymes Weight gain Other fatigue Ordered: 12/12/2024 [facility] Comment on above: Ordered: 12/12/2024 Lipoprotein a [Moles/volume] in Serum or Plasma [facility] Liver ultrasound attenuation by transient elastography DDI VIBRATION CONTROLLED TRANSIENT ELASTOGRAPHY (VCTE) Endoscopy Routine Elevated LFTs Ordered: 04/26/2024 [facility] Comment on above: Ordered: 04/26/2024 Mitochondria M2 IgG Ab [Units/volume] in Serum [facility] Neisseria gonorrhoea e DNA [Presence] in Unspecified specimen by SHEILA with probe detection Neisseria gonorrhea DNA probe, direct Lab Routine Pain in female genitalia on intercourse Cystitis Ordered: 06/25/2024 [facility] Comment on above: Ordered: 06/25/2024 Nuclear Ab [Titer] i n Serum [facility] OUTSIDE VENDOR CARDI AC OUTPATIENT EXTENDED RHYTHM RECORDING (WITHOUT TELEMETRY) OUTSIDE VENDOR CARDIAC OUTPATIENT EXTENDED RHYTHM RECORDING (WITHOUT TELEMETRY) Holter Routine Syncope, unspecified syncope type Ordered: 12/19/2023 [facility] Comment on above: Ordered: 12/19/2023 Patient Education Depression in adults - Discharge instructions [facility] DC Instructions Know your Meds [facility] Work Phone: Patient referral [facility] Work Phone: End: 12-18-2024 STRESS ECHO TREADMILL STRESS ECHO TREADMILL Cardiology Routine Syncope, unspecified syncope type 1 Occurrences starting 12/19/2023 until 12/18/2024 [facility] Work Phone: Comment on above: 1 Occurrences starting 12/19/2023 until 12/18/2024 SURESWAB(R) ADVANCED VAGINITIS PLUS, TMA SURESWAB(R) ADVANCED VAGINITIS PLUS, TMA Pathology and Cytology Routine Pain in female genitalia on intercourse Cystitis Ordered: 06/25/2024 [facility] Work Phone: Comment on above: Ordered: 06/25/2024 SURGICAL PATHOLOGY [facility] Comment on above: Release Upon Ordering for 1 Occurrences starting 05/22/2024, 1 completed TSH W/REFLEX TO FT4 TSH W/REFLEX TO FT4 Lab Routine Weight gain History of alcohol dependence (HCC) Other fatigue Ordered: 12/12/2024 [facility] [facility] Comment on above: Ordered: 12/12/2024 End: 07-14-2023 Us abdominal real time w/image limited US ABD RT UPPER QUADRANT Radiology Routine Liver lesion 1 Occurrences starting 06/14/2022 until 07/14/2023 [facility] Work Phone: Comment on above: 1 Occurrences starting 06/14/2022 until 07/14/2023 Vitamin B1 Vitamin B1 Lab R outine Elevated liver enzymes Weight gain History of alcohol dependence (HCC) Ordered: 12/12/2024 [facility] [employer] Comment on above: Ordered: 12/12/2024 Vitamin B6 Vitamin B6 Lab R outine Elevated liver enzymes Weight gain History of alcohol dependence (HCC) Ordered: 12/12/2024 [facility] [employer] Work Phone: Comment on above: Ordered: 12/12/2024 XR Abdomen Supine an d Upright XR ABDOMEN 2V ROUTINE SUPINE W UPRIGHT/DECUB/CTL Radiology Routine Chronic idiopathic constipation 07/10/2024 11:30 AM EDT [facility] Work Phone: End: 11-08-2025 XR Abdomen Supine and Upright XR ABDOMEN 1V SUPINE Radiology Routine Pelvic floor dysfunction Chronic constipation 3x per week for 3 Occurrences starting 10/09/2024 until 11/08/2025 [facility] Comment on above: 3x per week for 3 Occurrences starting 0 10/09/2024 until 11/08/2025 [facility] Immunizations Immunization Date Immunization Notes Care Provider Fa [facility] 09-06-2024 tetanus toxoid, redu rolanda diphtheria toxoid, and acellular pertussis vaccine, adsorbed Giovani Hagen MD Work Phone: [facility] [employer] 11-02-2021 SARS-CoV-2 mRNA (hrkyitzgmqt-wlni-tqwgg se) vaccine Madhuri MISHRA [facility] 04-29-2021 SARS-CoV-2 (COVID-19 ) mRNA BNT-162b2 vax Madhuri MISHRA [facility] 03-03-2021 SARS-CoV-2 (COVID-19 ) mRNA BNT-162b2 vax Madhuri MISHRA [facility] Comment on above: Result Comment: 2022: TPVAL 02-09-2021 influenza virus vaccine, unspecified formulation [employer] [facility] 02-09-2021 influenza, injectabl e, quadrivalent, preservative free Zhen Blackston PT Work Phone: [facility] 03-16-2020 influenza virus vaccine, unspecified formulation Madhuri [employer] [facility] 03-16-2020 Influenza, injectabl e, Madin Randolph Canine Kidney, preservative free, quadrivalent Zhen Blackston PT Work Phone: [facility] 01-08-2018 influenza virus vaccine, unspecified formulation Madhuri [employer] [facility] 01-08-2018 influenza, injectabl e, quadrivalent, contains preservative Zhen Blackston PT Work Phone: [facility] 01-08-2018 influenza, injectabl e, quadrivalent, preservative free Zhen Blackston PT Work Phone: [facility] 02-01-2017 influenza virus vaccine, unspecified formulation Madhuri [employer] [facility] 02-01-2017 Influenza, injectabl e, Madin Randolph Canine Kidney, preservative free, quadrivalent Zhen Blackston PT Work Phone: [facility] 03-25-2016 influenza virus vaccine, unspecified formulation Madhuri MISHRA [facility] 03-25-2016 influenza, injectabl e, quadrivalent, preservative free Zhen Burgess PT Work Phone: [facility] 02-05-2010 tetanus toxoid, redu rolanda diphtheria toxoid, and acellular pertussis vaccine, adsorbed Madhuri MISHRA [facility] 01-05-2007 hepatitis B vaccine, pediatric or pediatric/adolescent dosage Madhuri MISHRA [facility] 11-02-2006 hepatitis B vaccine, pediatric or pediatric/adolescent dosage Madhuri MISHRA [facility] 11-02-2006 HPV, unspecified formulation Madhuri MISHRA [facility] 11-02-2006 human papilloma viru s vaccine, quadrivalent Zhen Burgess PT Work Phone: [facility] 11-02-2006 meningococcal ACWY vaccine, unspecified formulation Madhuri MISHRA [facility] 11-02-2006 meningococcal polysaccharide (groups A, C, Y and W-135) diphtheria toxoid conjugate vaccine (MCV4P) Zhen Burgess PT Work Phone: [facility] 02-20-1998 hepatitis B vaccine, pediatric or pediatric/adolescent dosage Madhuri MISHRA [facility] 12-28-1993 diphtheria, tetanus toxoids and pertussis vaccine Zhen Burgess PT Work Phone: [facility] 12-07-1992 diphtheria, tetanus toxoids and pertussis vaccine Zhen Burgess PT Work Phone: [facility] 12-07-1992 measles, mumps and rubella virus vaccine Madhuri MISHRA [facility] 12-07-1992 trivalent poliovirus vaccine, live, oral Zhen Burgess PT Work Phone: [facility] 06-09-1992 diphtheria, tetanus toxoids and pertussis vaccine Zhen Burgess PT Work Phone: [facility] 06-09-1992 measles, mumps and rubella virus vaccine Madhuri MISHRA [facility] 06-09-1992 trivalent poliovirus vaccine, live, oral Zhen Burgess PT Work Phone: [facility] 10-31-1990 varicella virus vaccine Patr homer MISHRA [facility] 06-20-1990 diphtheria, tetanus toxoids and pertussis vaccine Zhen Burgess PT Work Phone: [facility] 05-21-1990 trivalent poliovirus vaccine, live, oral Zhen Burgess PT Work Phone: [facility] 01-10-1989 trivalent poliovirus vaccine, live, oral Zhen Burgess PT Work Phone: [facility] NEGATED: Highlighted row has not occurred!05-01-2019 influenza virus vaccine, live, attenuated, for intranasal use Madhuri MISHRA [facility] NEGATED: Highlighted row has not occurred!04-03-2019 influenza virus vaccine, live, attenuated, for intranasal use Madhuri MISHRA [facility] Payers Date Payer Category Payer Self-pay [id number] 2020 Private Health Insurance [id number] 2020 Unknown [id number]. 1.13.159.2.7 .[id number] 1988 Unknown [id number] 2.16.840.1.548870.3.579.2.1 82 1988 Unknown [id number] 2.16.840.1.639032.3.579.2.5 93 1988 Unknown [id number] 2.16.840.1.304990.3.579.2.5 93 1988 Unknown [id number] 2.16.840.1.599508.3.579.2.5 93 1988 Unknown [id number] 2.16.840.1.976780.3.579.2.5 93 1988 Unknown [id number] 2.16.840.1.366117.3.579.2.5 93 1988 Unknown [id number] 2.16.840.1.807926.3.579.2.5 93 1988 Unknown [id number] 2.16.840.1.602438.3.579.2.5 93 1988 Unknown [id number] 2.16.840.1.127578.3.579.2.5 93 1988 Unknown [id number] 2.16.840.1.199485.3.579.2.5 93 1988 Unknown [id number] 2.16.840.1.220712.3.579.2.5 93 1988 Unknown [id number] 2.16.840.1.345820.3.579.2.5 93 1988 Unknown [id number] 2.16.840.1.082771.3.579.2.5 93 1988 Unknown [id number] 2.16.840.1.314971.3.579.2.5 93 1988 Unknown [id number] 2.16.840.1.849273.3.579.2.1 77 1988 Unknown [id number] 2.16.840.1.074889.3.579.2.7 27 1988 Unknown [id number] 2.16.840.1.482844.3.579.2.7 27 1988 Unknown [id number] 2.16.840.1.154586.3.579.2.7 27 1988 Unknown [id number] 2.16.840.1.062197.3.579.2.1 259 1988 Unknown [id number] 2.16.840.1.067806.3.579.2.1 259 1988 Unknown [id number] 2.16.840.1.127922.3.579.2.1 259 1988 Unknown [id number] 2.16.840.1.274392.3.579.2.1 259 1988 Unknown [id number] 2.16.840.1.297348.3.579.2.1 259 1988 Unknown [id number] 2.16.840.1.229453.3.579.2.1 259 1988 Unknown [id number] 2.16.840.1.398179.3.579.2.1 259 1988 Unknown [id number] 2.16.840.1.832226.3.579.2.1 259 1988 Unknown [id number] 2.16.840.1.092779.3.579.2.1 259 1988 Unknown [id number] 2.16.840.1.708252.3.579.2.1 259 1988 Unknown [id number] 2.16.840.1.308961.3.579.2.1 259 1988 Unknown [id number] 2.16.840.1.470468.3.579.2.1 259 1988 Unknown [id number] 2.16.840.1.573905.3.579.2.1 259 1988 Unknown [id number] 2.16.840.1.829501.3.579.2.1 259 1988 Unknown [id number] 2.16.840.1.135940.3.579.2.1 259 1988 Unknown [id number] 2.16.840.1.023954.3.579.2.1 259 1988 Unknown [id number] 2.16.840.1.318278.3.579.2.1 259 1988 Unknown [id number] 2.16.840.1.897548.3.579.2.1 259 1988 Unknown [id number] 2.16.840.1.496129.3.579.2.1 259 1988 Unknown [id number] 2.16.840.1.638376.3.579.2.1 259 1988 Unknown [id number] 2.840.1.497833.3.579.2.1 259 1988 Unknown [id number] 2.16.840.1.259770.3.579.2.1 259 1988 Unknown [id number] 2.16840.1.184665.3.579.2.1 259 1988 Unknown [id number] 2.16.840.1.489285.3.579.2.1 259 1988 Unknown [id number] 2.16840.1.502950.3.579.2.1 259 1988 Unknown [id number] 2.16.840.1.363291.3.579.2.1 259 1988 Unknown [id number] 2.16.840.1.653357.3.579.2.1 259 1988 Unknown [id number] 2.16.840.1.177099.3.579.2.1 259 1988 Unknown [id number] 2.16.840.1.932785.3.579.2.1 259 1988 Unknown [id number] 2.16.840.1.697080.3.579.2.1 259 1988 Unknown [id number] 2.16.840.1.394023.3.579.2.1 259 1988 Unknown [id number] 2.16.840.1.658433.3.579.2.1 259 1988 Unknown [id number] 2.16.840.1.851739.3.579.2.1 259 1988 Unknown [id number] 2.16.840.1.438776.3.579.2.1 259 1988 Unknown [id number] 2.16840.1.388063.3.579.2.1 259 1988 Unknown [id number] 2.16840.1.479832.3.579.2.1 259 1988 Unknown [id number] 2.840.1.581591.3.579.2.1 259 1988 Unknown [id number] 2.16840.1.053282.3.579.2.1 259 1988 Unknown [id number] 2.16840.1.741896.3.579.2.1 259 1988 Unknown [id number] 2.16840.1.958488.3.579.2.1 259 1988 Unknown [id number] 2840.1.237966.3.579.2.1 259 1988 Unknown [id number] 2.16840.1.770540.3.579.2.1 259 1988 Unknown [id number] 2.16840.1.500566.3.579.2.1 259 1988 Unknown [id number] 2.16.840.1.533541.3.579.2.1 259 1988 Unknown [id number] 2.16840.1.711836.3.579.2.1 259 1988 Unknown [id number] 2.16.840.1.008870.3.579.2.1 259 1988 Unknown [id number] 2.16.840.1.833685.3.579.2.1 259 1988 Unknown [id number] 2.16.840.1.201574.3.579.2.1 259 1988 Unknown [id number] 2.16.840.1.546481.3.579.2.1 259 1988 Unknown [id number] 2.16.840.1.343949.3.579.2.1 259 1988 Unknown [id number] 2.16.840.1.252651.3.579.2.1 259 1959 Unknown [id number] Unknown 100 ODJFS [facility] [id number] Unknown [id number] 2.16.840.1.133039.3.579.2.5 31 Social History Date Type Detail Facility Tobacco smoking stat us [facility] Unknown if ever smoked [facility] Work Phone: Start: 1990 Sex Assigned At Female [facility] Start: 03-28-2019 End: 05-27-2022 Tobacco smoking status WVIS Never smoked tobacco [facility] Start: 05-27-2022 End: 01-06-2025 Tobacco use and exposure Smokeless tobacco non-user [facility] Start: 05-27-2022 End: 12-30-2024 Alcohol intake Current drinker of alcohol (finding) [facility] Start: 03-28-2019 Alcohol Comment socially [facility] Start: 1990 Sex Assigned At Not on file [facility] Start: 10-17-2022 End: 11-02-2022 Sex Assigned At [facility] Start: 06-29-2022 End: 10-10-2024 Tobacco smoking status Ex-smoker (finding) [facility] [place] Start: 01-24-2019 End: 12-31-2024 Tobacco smoking status Never [facility] [place] Start: 10-17-2022 End: 11-02-2022 History of Social function [facility] Start: 06-08-2021 Gender identity Identifies as female gender (finding) [facility] Start: 11-16-2021 End: 11-26-2021 Exposure to SARS-CoV-2 (event) Not sure [facility] Start: 08-17-2024 History of tobacco use Current smoker [facility] Within the last year , have you been afraid of your partner or ex-partner? No [facility] Do you belong to any clubs or organizations such as anabaptism groups, unions, fraternal [...] Start: 02-02-2013 End: 08-19-2024 Sex Female (finding) [facility] History of tobacco use Cigarette Smoker [facility] Sexual Orientation [facility] [place] Start: 01-06-2025 Tobacco smoking status NHIS Smokes tobacco daily [facility] Goals Date Patient Goal Desired Activity /State Personal health goal Personal health goal Functional Status Date Assessment Result Facility 01-06-2025 Patient Health Quest ionnaire 2 item (PHQ-2) [Reported] [facility] 01-06-2025 PHQ-9 quick depressi on assessment panel [Reported.PHQ] [facility] 10-08-2024 Patient Health Quest ionnaire 2 item (PHQ-2) [Reported] [facility] 10-08-2024 PHQ-9 quick depressi on assessment panel [Reported.PHQ] [facility] 09-25-2024 Patient Health Quest ionnaire 2 item (PHQ-2) [Reported] [facility] 09-25-2024 PHQ-9 quick depressi on assessment panel [Reported.PHQ] [facility] 09-17-2024 Patient Health Quest ionnaire 2 item (PHQ-2) [Reported] [facility] 09-02-2024 Patient Health Quest ionnaire 2 item (PHQ-2) [Reported] [facility] 08-19-2024 Functional status Patient at Baseline [facility] Work Phone: 12-28-2023 Functional Status N/A [facility] 06-30-2022 Functional Status N/A [facility] Mental Status Date Assessment Result Facility 08-19-2024 Cognitive function Cognitive Sta tus Patient at Baseline [facility] Work Phone: Clinical Notes 05-03-2022 to 01-06-2025 Giovani Hagen MD - 01/06/2025 11:42 AM Rox Hagen MD - 01/06/2025 11:35 AM Rox Hagen MD - 01/06/2025 11:34 AM Rox Hagen MD - 01/06/2025 10:30 AM EDTPatient Instructions Note Date & Type Note Facility 01-06-2025 History of Present illness Narrative Associated Problem(s): Type 2 diabetes mellitus without complication, without long-term current use of insulin (HCC) Last A1c was 8.5 Associated Problem(s): Chest pain Stress Echo last year from [facility] Pepcid AC twice a day Associated Problem(s): Well adult health check [place] Alcohol consumption No Tobacco Seat Belt use Exercise Regularly No Text Drive Social Accountability Subjective Patient ID: Orion Harper is a 34 y.o. female who presents for a wellness. Orion presents today for a yearly wellness. Patient was seen in the [place] ER this morning for having chest pain, [...] tablet Take 20 mg by mouth Daily Tvvcipstped-Iismceznh-Ezciwt (Trelegy Ellipta) 100-62.5-25 MCG/ACT aerosol powder INHALE [...] (300 mg) before bedtime. 60 tablet 2 prazosin [...] partial hysterectomy 05/2016 SpO2 97% BMI 38.78 kg/m OB Status Hysterectomy Smoking Status Every Day BSA 2.05 m Review of Systems Constitutional: Negative for chills, fatigue, fever and unexpected weight change. Respiratory: Negative for cough. Cardiovascular: Negative for chest pain. Gastrointestinal: Positive for constipation. Negative for abdominal pain, blood in stool, diarrhea, nausea and vomiting. Last BM yesterday Genitourinary: Negative [...] Chest pain Stress Echo last year from Pepcid AC twice a day Type 2 diabetes mellitus without complication, without long-term current use of insulin (HCC) Last A1c was 8.5 No follow-ups on file. documented in this encounter [facility] 01-01-2025 Note Patient Education Urology Kidney Stones [...] these instructions at home: Medicines ??? Take hyer-xga-yvnvrgb and prescription medicines only as told by [...] pale yellow. Thi (more content not included)... [facility] 12-30-2024 History of Present illness Narrative [...] Patient states that she was surfing in [place] when she injured her right ankle and [...] Acute biliary pancreatitis without infection or necrosis ([facility]) 03/21/2023 Calculus of gallbladder without cholecystitis [...] disorder, unspecified (HCC) 09/02/2024 Alcohol withdrawal delirium ([facility]) 09/02/2024 Hypertension 09/02/2024 Sinus tachycardia 09/02/2024 Fall at home 09/10/2024 Extruding suture 09/25/2024 Lumbar radiculopathy 12/09/2024 Generalized anxiety disorder 12/12/2024 Obsessive-compulsive disorder 12/12/2024 Pelvic floor dysfunction 10/11/2024 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 Right ovarian cyst 12/12/2024 Morbid (severe) obesity due to excess calories ([facility]) 12/16/2024 Impaired fasting glucose 12/16/2024 Obesity, class [...] toenail 2015 Left ovarian cyst 03/01/2019 Pancreatitis ([facility]) Pap smear for cervical cancer screening 04/20/2022 Post depression Seizures (HCC) 2002 Medications: Current Outpatient Medications: albuterol (2.5 [...] mg by mouth Daily, Disp: , Rfl: Fmbnishkxrv-Eujlwpynq-Lgjdic (Trelegy Ellipta) 100-62.5-25 MCG/ACT aerosol powder , [...] < 3 seconds Digits 1-5 bilateral NEURO: [place] 5.07 monofilament was intact B/L. Vibratory [...] weeks JASON Conti documented in this encounter [facility] 12-30-2024 Instructions Emma Ying APRN.TEACHERS AIDE - 12/30/2024 9:42 AM EDT Images from [...] to your home. I recommend Camilla in [place], as she is approximately 30 minutes from [...] a physical therapist. documented in this encounter [facility] 12-30-2024 History of Present illness Narrative Images from the original note were not included. [facility] SECTION FOR CHRONIC PELVIC PAIN OUTPATIENT VISIT DATE 12/30/2024 OUTPATIENT VISIT TYPE CONSULT REFERRING PROVIDER: Javy Boudreaux MD PRIMARY CARE PROVIDER: Giovani Hagen MD, MD PRIMARY LIQUID FLAVOR COMPOUNDER: Consultation requested by referring provider above for an opinion regarding Orion Harper, and my final recommendations will be communicated back to the requesting physician by way of shared medical record or letter via US mail. Recording using [employer] software for draft documentation of the visit was discussed with the patient/authorized hvac sales representative; all questions welcomed and answered. Patient/authorized hvac sales representative agreed to proceed CHIEF COMPLAINT/REASON FOR [...] is not in contact with those individuals. 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 strong, equal bilaterally. CNXII: Tongue protrusion midline [facility] Medical History (Updated 08/17/24 @ 09:29 [...] MD 5 0722 Signed By: 08/17/24 0936 [facility]04-25-2025 Evaluation note* Diagnosis Onset Date Resolution Status Admit Date Major depressive disorder, recurrent, moderate acute August 16, 2024 4:40pm [facility] Work Phone: 1(291) 358-598704-23-2025 History of Present illness Narrative* Milton Fraire [...] in 1 JASON Conti documented in this encounter[facility] [id number] Instructions* Patient Instructions* Solo Mora MD - [...] these 2). Please call my office at [phone] with any questions [facility] History of Present illness Narrative* Solo Mora MD - 08/13/2024 2:30 PM EDT Images from the original note were not included. [facility] [place] [facility] Department of Cardiovascular Medicine SECTION OF CARDIAC PACING and ELECTROPHYSIOLOGY OUTPATIENT VISIT DATE August 13, 2024 OUTPATIENT VISIT TYPE ESTABLISHED PRIMARY CARE PHYSICIAN: Giovani Hagen MD [address] [facility] [address] [place] [address] CHIEF COMPLAINT: Syncope HISTORY OF PRESENT ILLNESS:(NURSING [...] the prior echocardiographic exam performed on 04/09/2024 ([place]). The major resting echocardiographic findings are comparable. [...] sinus tachycardia Solo Mora MD Holter Monitor [id number] [facility] Signed by Solo Mora MD on 02/21/24 [...] INFORMATION: Solo Mora MD documented in this [facility]04-[facility]-2025 NoteHNO ID: [id number] Author: SOLO MORA MD Service: ? Author Type: Physician Type: Progress Notes Filed: 08/26/2024 15:56 Note Text: [facility] Department of Cardiovascular Medicine SECTION OF CARDIAC PACING and ELECTROPHYSIOLOGY OUTPATIENT VISIT DATE August 13, 2024 OUTPATIENT VISIT TYPE ESTABLISHED PRIMARY CARE PHYSICIAN: Giovani Hagen MD [address] [place] [address] CHIEF COMPLAINT: Syncope HISTORY OF PRESENT ILLNESS:(NURSING [...] AV morphology not clearl (more content not included)...[facility]04-10-2025 History of Present illness Narrative* Giovani [...] No follow-ups on file. documented in this encounterPerry County [facility] [id number] History of Present illness Narrative* Milton Fraire [...] the patient. JASON Conti documented in this encounterPerry County [facility] HospitalHvylhjrlrw24-21-0008 History of Present illness Narrative* Estela Robb, [...] PATIENT PRESENTS WITH AN IMPLANTABLE OR ATTACHED OCCUPATIONAL HEALTH AND SAFETY MANAGER: No RADIOLOGY DEPARTMENT: General X-ray: Exam(s) Completed: Abdomen X-Ray: Abdomen with Upright PERIPHERAL IV DATA: Not applicable SIGNED BY: LISBETH Ruiz) July 10, 2024 11:31 AM documented in [facility] encounter[facility]03-[facility]-2025 NoteHNO ID: [id number] Author: ESTELA ROBB RT (R) Service: ? Author Type: Technologist Type: Progress [...] PATIENT PRESENTS WITH AN IMPLANTABLE OR ATTACHED OCCUPATIONAL HEALTH AND SAFETY MANAGER: No RADIOLOGY DEPARTMENT: General X-ray: Exam(s) Completed: Abdomen X-Ray: Abdomen with Upright PERIPHERAL IV DATA: Not applicable SIGNED BY: RT Sara(R) July 10, 2024 11:31 [facility]03-19-2025 History of Present illness Narrative* Lulú Washburn MD - 07/10/2024 11:31 AM EDT Transabdominal ultrasound performed. See imaging tab for details. Lulú Washburn MD documented in this encounterUpper [facility]03-19-2025 NoteHNO ID: [id number] Author: LULÚ WASHBURN MD Service: ? Author Type: Physician Type: Progress Notes Filed: 07/10/2024 11:31 Note Text: Transabdominal ultrasound performed. See imaging tab for details. Lulú Washburn, [facility]03-19-2025 NoteHNO ID: [id number] Author: JAVY BOUDREAUX MD Service: ? Author Type: Physician Type: Progress Notes Filed: 07/10/2024 10:15 Note Text: SUBJECTIVE: Oriontuyet Harper is a 33 year old female Patient presents with: Vaginal Problem: Pt presents today for consult - painful intercourse Referred here by her AIRCRAFT ENGINE INSTALLER at [employer]. Has been having pain with intercourse for [...] - PELVIC US WHI - CONSULT TO AIRCRAFT ENGINE INSTALLER PELVIC PAIN 2. Pelvic pain in female - ICD9: 625.9, ICD10: R10.2 - counseled. - PELVIC US WHI - CONSULT TO AIRCRAFT ENGINE INSTALLER PELVIC PAIN Javy Boudreaux MD Medical Decision Making: Problems: Moderate: New problem with uncertain prognosis Data: Unique test(s) ordered: 2 Risk: Low: Low risk from testing/treatment Medical Decision Making Level: 3 - [facility] History of Present illness Narrative* Javy Boudreaux MD - 07/10/2024 10:10 AM EDT SUBJECTIVE: Orionbianca Harper is a 33 year old female Patient presents with: Vaginal Problem: Pt presents today for consult - painful intercourse Referred here by her AIRCRAFT ENGINE INSTALLER at [employer]. Has been having pain with intercourse for [...] - PELVIC US WHI - CONSULT TO AIRCRAFT ENGINE INSTALLER PELVIC PAIN 2. Pelvic pain in female - ICD9: 625.9, ICD10: R10.2 - counseled. - PELVIC US WHI - CONSULT TO AIRCRAFT ENGINE INSTALLER PELVIC PAIN Javy Boudreaux MD Medical Decision Making: Problems: Moderate: New problem with uncertain prognosis Data: Unique test(s) ordered: 2 Risk: Low: Low risk from testing/treatment Medical Decision Making Level: 3 - Low documented in this encounter[facility] History of Present illness Narrative* Giovani Hagen [...] No follow-ups on file. documented in this encounterPerry County Memorial HospitalCxukhthnxk24-41-5601 History of Present illness Narrative* Milton Fraire [...] Milton Fraire DPM FACHAL documented in this encounterPerry County Memorial HospitalJrbyuocsxl39-08-9018 History of Present illness Narrative* Milton Fraire [...] Milton Fraire DPM FACHAL documented in this encounterPerry County Memorial HospitalLxikiixhee14-74-9677 History of Present illness Narrative* Acacia Vigil LPN - 06/25/2024 2:20 PM EST Reason for Appointment: Patient ID: Orion Harper is a 33 y.o. female who presents for Painful Voltaire and bleeding with intercourse Patient presents today [...] deficit hyperactivity disorder (ADHD), predominantly inattentive type ([facility]) 09/23/2022 Bipolar disorder, in partial remission, most recent episode manic ([facility]) 09/23/2022 Diverticular disease of colon 09/23/2022 Dysphagia 09/23/2022 Elevated liver enzymes 09/23/2022 Exercise induced bronchospasm ([facility]) 09/23/2022 Finding of above normal blood pressure 09/23/2022 History of hysterectomy 09/23/2022 Hyperglycemia 09/23/2022 Hypersexuality 09/23/2022 Insomnia 09/23/2022 Irritable bowel syndrome with constipation 09/23/2022 Mild intermittent asthma without complication ([facility]) 09/23/2022 Mood swings 09/23/2022 Nephrolithiasis 09/23/2022 Nonalcoholic steatohepatitis (ENGLISH) 09/23/2022 Other specified abnormal findings of blood chemistry 09/23/2022 Poor concentration 09/23/2022 Sacroiliitis, not elsewhere classified ([facility]) 09/23/2022 Skin pain 09/23/2022 Thyroid enlargement ([facility]) 09/23/2022 Atherosclerosis of aorta ([facility]) 06/16/2020 Atherosclerosis of both carotid arteries 11/16/2020 Atherosclerosis of coronary artery without angina pectoris ([facility]) 05/18/2021 Gastroesophageal reflux disease without esophagitis 07/09/2019 Gastroparesis 11/02/2022 Non-refractory idiopathic generalized epilepsy ([facility]) 11/22/2019 Osteoarthritis of knee 06/14/2019 Hypercholesterolemia ([facility]) 07/01/2021 Recurrent UTI 12/12/2022 Vitamin D deficiency 05/16/2019 Dizziness 12/13/2022 Acute nonintractable headache 12/13/2022 History of COVID-19 02/06/2023 Overweight 02/06/2023 Acute biliary pancreatitis without infection or necrosis 03/21/2023 Calculus of gallbladder without cholecystitis without obstruction 03/23/2023 Cholecystitis 04/18/2023 Encounter for postoperative care 04/18/2023 History of acute pancreatitis 04/18/2023 History of cholecystectomy 04/18/2023 Cough 04/18/2023 Anaphylactic syndrome 04/18/2023 PTSD (post-traumatic stress disorder) ([facility]) 02/24/2015 Tinea 10/03/2023 Weight gain 10/03/2023 Glucose [...] for cervical cancer screening 04/20/2022 Post depression ([facility]) HISTORY PAST MEDICAL HISTORY SOCIAL HISTORY Past [...] in referring patient [facility]. Patient to use Coconut oil in the interm, as triple antibiotics will not be prescribed as to not cause c-diff again for patient. Patient to RTC for annual and PRN. Documented by Acacia Vigil LPN on behalf of: Darwin Starr DO documented in this encounterPerry County Memorial HospitalVxhczprtyt18-82-0134 History of Present illness Narrative* Prateek Pedraza, JASON - 06/19/2024 2:30 PM EST Patient: Orion Eleuterio Harper : 1990 PCP: [...] the morning., Disp: 45 tablet, Rfl: 2 Walskgroacq-Wkvvmvqqp-Gndtca 100-62.5-25 MCG/ACT aerosol powder , Inhale 1 [...] future. Prateek Pedraza DPM documented in this encounterPerry County Memorial HospitalBxxjbkpmxi31-00-1431 Telephone encounter Note* Telephone Encounter - VINH Roque - 06/19/2024 10:18 AM EST OARRS reviewed, Rx sent into patient's pharmacy. [facility] [id number] Miscellaneous Notes* Telephone Encounter - VINH Roque - 06/19/2024 10:18 AM EST OARRS reviewed, Rx sent into patient's pharmacy. documented in this encounterPerry County Memorial HospitalNshwihfddu58-34-4120 Telephone encounter Note* Telephone Encounter - JASON Conti - 06/12/2024 10:56 PM EST The prescription has been sent to the pharmacy. Thank you. [facility] [id number] Miscellaneous Notes* Telephone Encounter - JASON Conti - 06/12/2024 10:56 PM EST The prescription has been sent to the pharmacy. Thank you. 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 The drive is a [place] way 1hr and 40 minutes. 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 When gets around people doesn't like to be asked questions and doesn't like to be put on the spot. Also is working with teams in [place], and [place]. Bipolar well managed Anxiety Presents for follow-up [...] time for 1 dose 1 each 2 Wtembkyketu-Cvwjlrsgu-Jgqtlk 100-62.5-25 MCG/ACT aerosol powder Inhale 1 puff [...] 4 weeks (around 07/04/2024). documented in this encounterPerry County Memorial HospitalAsqsznwlen59-23-0319 History of Present illness Narrative* VINH Sibley [...] escitalopram (LEXAPRO) 20 mg, Oral, Every morning Dmlozztyqcn-Cummnahtj-Jgwfxt 100-62.5-25 MCG/ACT aerosol powder 1 puff, Inhalation, [...] Elevated liver enzymes 09/23/2022 Exercise induced bronchospasm ([facility]) 09/23/2022 Finding of above normal blood pressure 09/23/2022 History of hysterectomy 09/23/2022 Hyperglycemia 09/23/2022 Hypersexuality 09/23/2022 Insomnia 09/23/2022 Irritable bowel syndrome with constipation 09/23/2022 Mild intermittent asthma without complication ([facility]) 09/23/2022 Mood swings 09/23/2022 Nephrolithiasis 09/23/2022 Nonalcoholic steatohepatitis (ENGLISH) 09/23/2022 Other specified abnormal findings of blood chemistry 09/23/2022 Poor concentration 09/23/2022 Sacroiliitis, not elsewhere classified ([facility]) 09/23/2022 Skin pain 09/23/2022 Thyroid enlargement ([facility]) 09/23/2022 Atherosclerosis of aorta ([facility]) 06/16/2020 Atherosclerosis of both carotid arteries 11/16/2020 Atherosclerosis of coronary artery without angina pectoris ([facility]) 05/18/2021 Gastroesophageal reflux disease without esophagitis 07/09/2019 Gastroparesis 11/02/2022 Non-refractory idiopathic generalized epilepsy ([facility]) 11/22/2019 Osteoarthritis of knee 06/14/2019 Hypercholesterolemia ([facility]) 07/01/2021 Recurrent UTI 12/12/2022 Vitamin D deficiency 05/16/2019 Dizziness 12/13/2022 Acute nonintractable headache 12/13/2022 History of COVID-19 02/06/2023 Overweight 02/06/2023 Acute biliary pancreatitis without infection or necrosis 03/21/2023 Calculus of gallbladder without cholecystitis without obstruction 03/23/2023 Cholecystitis 04/18/2023 Encounter for postoperative care 04/18/2023 History of acute pancreatitis 04/18/2023 History of cholecystectomy 04/18/2023 Cough 04/18/2023 Anaphylactic syndrome 04/18/2023 PTSD (post-traumatic stress disorder) ([facility]) 02/24/2015 Tinea 10/03/2023 Weight gain 10/03/2023 Glucose [...] having a diagnostic laparoscopy performed at [facility] with Dr. Starr.results was reviewed with the patient and all restrictions have been lifted. Follow Up: Patient is to return to the office for annual exam unless needed otherwise. Documented by VINH Sibley on behalf of: VINH Sibley documented in this encounterPerry County Memorial HospitalWslucgsjuv50-16-6648 Telephone encounter Note* Telephone Encounter - Benito [...] and precautions to follow Carol Winn MD [facility]01-30-2025 Miscellaneous Notes* Telephone Encounter - Benito Soriano [...] follow Carol Winn MD documented in this encounterUpper Valley Medical Center01-29-2025 History and physical note * Carol Winn [...] DATE: May 22, 2024 TIME: 1:39 PM [facility] Work Phone: [phone] History and physical note* Carol Winn MD [...] 2024 TIME: 1:39 PM documented in this encounterUpper Valley Medical Center01-29-2025 Nurse Note* Lindsey Buckley RN - 05/22/2024 [...] Lindsey Buckley RN In Department: AMBULATORY SURGERY [facility]01-29-2025 Nurse Note* Lindsey Buckley RN - 05/22/2024 [...] In Department: AMBULATORY SURGERY documented in this encounterUpper Valley Medical Center01-22-2025 Telephone encounter Note * Telephone Encounter - Rose Jarvis - 05/15/2024 3:56 PM EST Appts cxl, surgery notified to cxl. [facility]01-22-2025 Miscellaneous Notes* Telephone Encounter - Rose Jarvis [...] time. Lydia Kelley DO documented in this encounterUpper Valley Medical Center01-22-2025 History of Present illness Narrative* Milton Fraire [...] attenuation of the anterior talof[place] [address] Magnetic Resonance Report Signed Patient: ORION HARPER MR#: [id number] : 1990 Acct:[id number] Age/Sex: 33 / F ADM Date: 03/14/24 Loc: MRI Attending Dr: Laurie Trujillo M.D. Ordering Physician: Laurie Trujillo M.D. Date of Service: 03/14/24 Procedure(s): MR ankle RT wo con Accession Number(s): [id number] cc: GIOVANI HAGEN ; Laurie Trujillo M.D. [facility] [place] [id number] Patient Name: ORION HARPER MRN: [id number] date: 1990 Sex: F Assigned Patient Location: MRI Current Patient Location: Accession/Order Number: [id number] Exam Date: 03/14/2024 15:04 Report Date: 03/17/2024 [...] THE MORNING, Disp: 30 tablet, Rfl: 2 Mkkdlokuiez-Wgrngdvyl-Ygbwxx 100-62.5-25 MCG/ACT aerosol powder , Inhale 1 [...] are palpable bilateral, no edema noted Neuro: [place] 5.07 monofilament intact, vibratory sensation intact Derm: [...] They have consented for the above-stated procedure. Milton Fraire DPM FACFAS documented in this encounterPerry County Memorial HospitalIvtdykajys08-24-6343 Telephone encounter Note* Telephone Encounter - VINH Roque - 05/10/2024 12:10 PM EST Pt was seen. OARRS reviewed, Rx sent into patient's pharmacy. [facility] HospitalQssmwtuvba76-43-4032 Miscellaneous Notes* Telephone Encounter - VINH Roque - 05/10/2024 12:10 PM EST Pt was seen. OARRS reviewed, Rx sent into patient's pharmacy. * Telephone Encounter - VINH Roque - 05/09/2024 1:07 PM EST Patient has appointment today. documented in this encounterPerry County Memorial HospitalRzikeklkes52-97-4766 History of Present illness Narrative* Giovani Hagen [...] DAY IN THE MORNING 30 tablet 2 Dmnugligxgw-Tsucypyfk-Kreccc 100-62.5-25 MCG/ACT aerosol powder Inhale 1 puff [...] of spine - Primary Relevant Medications HYDROcodone-acetaminophen (Lostant) 5-325 MG tablet Other Relevant Orders Ambulatory referral to Pain Medicine No follow-ups on file. documented in this encounterPerry County Memorial HospitalAenzpopouz88-68-9743 Telephone encounter Note* Telephone Encounter - VINH Roque - 05/09/2024 1:07 PM EST Patient has appointment today. [facility] HospitalDidxihggqw43-61-5947 History of Present illness Narrative* Prateek A JASON Pedraza - 05/08/2024 3:10 PM EST Patient: Orion [...] THE MORNING, Disp: 30 tablet, Rfl: 2 Wnetjhtbiho-Bsxzrjqor-Epfjvf 100-62.5-25 MCG/ACT aerosol powder , Inhale 1 [...] 0 min Stress: Stress Concern Present (04/18/2023) [place] of Occupational [employer] - Occupational Stress Questionnaire Feeling of Stress : Very much Social Connections: Moderately Integrated (04/18/2023) Social Connection and Isolation Panel [NHANES] Frequency of Communication with Friends and Family: Three times a week Frequency of Social Gatherings with Friends and Family: Twice a week Attends [employer] Services: Never Active Member of Clubs or [...] base of the right foot MRI: [place] [address] Magnetic Resonance Report Signed Patient: ORION HARPER MR#: [id number] : 1990 Acct:[id number] Age/Sex: 33 / F ADM Date: 03/14/24 Loc: MRI Attending Dr: Laurie Trujillo M.D. Ordering Physician: Laurie Trujillo M.D. Date of Service: 03/14/24 Procedure(s): MR ankle RT wo con Accession Number(s): [id number] cc: GIOVANI HAGEN ; Laurie Trujillo M.D. [facility] [place] [id number] Patient Name: ORION HARPER MRN: [id number] date: 1990 Sex: F Assigned Patient Location: MRI Current Patient Location: Accession/Order Number: [id number] Exam Date: 03/14/2024 15:04 Report Date: 03/17/2024 [...] warranted. Prateek Pedraza DPM documented in this encounterPerry County Memorial HospitalBcnybwxqti68-89-9547 Telephone encounter Note* Telephone Encounter - Criss Mccrary - 05/06/2024 1:40 PM EST Echo was faxed to Anne-Marie @ [phone] & scanned into outside ep. Patient is having a procedure. rCiss Mccrary [facility]01-13-2025 Miscellaneous Notes* Telephone Encounter - Criss Holm - 05/06/2024 1:40 PM EST Echo was faxed to Anne-Marie @ [phone] & scanned into outside ep. Patient is having a procedure. Criss Mccrary documented in this encounterUpper Valley Medical Center01-10-2025 Telephone encounter Note * Telephone Encounter - [...] seen at that time. Lydia Kelley DO [facility]01-09-2025 NoteHNO ID: [id number] Author: ZEHRA GRAY PA-C Service: ? Author Type: Physician Pricing Specialist Type: Progress Notes Filed: 05/02/2024 11:34 Note [...] Int J Clin Exp Med. 2015 Jan 15;8(10):82424-29. PMID: 88203142; PMCID: ZCO9708041. Ruthann Bob, Juan FANTASMA, Rico M, Cosmo F, Tawnya J, Everardo O, Leyla F, Franci M, Alejandro G, Dorie A, Gianna E, Leyla L, French G, Kashmir A, Vicente U, Jodi S, Franc P, Max V, Last V, Leena M, Neo MARIE. Refining the Baveno elastography criteria for the definition of compensated advanced chronic liver disease. J Hepatol. 2020;74(5):0363-4874. doi: 10.1016/j.jhep.2020.11.050. Epub 2019Apr 01. PMID: 40735403. Izabel Bob, Chastity Moran, Martha Bob, Xiao Bob, Joon Stevens, Nuria Roth, Trevin Roth, Trixie Kendrick. AASLD practice guidance on the clinical assessment and management of nonalcoholic fatty liver disease. Hepatology. 2022;77(5):1426-4090. doi:10.1097/HEP.5274128275222437SffanbytsMiami Valley Hospital 05-02-2024 History of Present illness Narrative* [...] Int J Clin Exp Med. 2015 Jan 15;8(10):54639-18.PMID: 98813991; PMCID: QWC1211631. Ruthann Bob, Juan FANTASMA, Rico M, Cosmo F, Tawnya J, Everardo O, Leyla F, Franci M, Alejandro G, Dorie A, Gianna E, Leyla L, French G, Kashmir A, Vicente U, Zapata S, Jordan, Max V, Last V, Leena M, Neo MARIE. Refining the Baveno elastography criteria for the definition of compensated advanced chronic liver disease. J Hepatol. 2020;74(5):1526-7120. doi: 10.1016/j.jhep.2020.11.050. Ep2019Apr 01. PMID: 62581342. Izabel Bob, Chastity Moran, Martha M, Xiao M, Joon S, Nuria Roth, Trevin Roth, Trixie Kendrick.AASLD practice guidance on the clinical assessment and management of nonalcoholic fatty liver disease. Hepatology. 2022;77(5):1797- 1835. doi:10.1097/HEP.[id number] documented in this encounterUpper Valley Medical Center01-07-2025 History of Present illness Narrative* Sandy Catarino, HEEL LAYER - 04/30/2024 2:50 PM EST Reason for [...] on 05/23/[address] Starr at [facility]. MEDICATIONS Current Outpatient Medications Medication Instructions [...] escitalopram (LEXAPRO) 20 mg, Oral, Every morning Nocgbgrfafm-Wvuhhjvnm-Iftkwy 100-62.5-25 MCG/ACT aerosol powder 1 puff, Inhalation, [...] Attention deficit hyperactivity disorder, predominantly inattentive type ([facility]) 09/23/2022 Bipolar disorder, in partial remission, most recent episode manic ([facility]) 09/23/2022 Diverticular disease of colon 09/23/2022 [...] Poor concentration 09/23/2022 Sacroiliitis, not elsewhere classified ([facility]) 09/23/2022 Skin pain 09/23/2022 Thyroid enlargement ([facility]) 09/23/2022 Atherosclerosis of aorta ([facility]) 06/16/2020 Atherosclerosis of both carotid arteries 11/16/2020 Atherosclerosis of coronary artery without angina pectoris ([facility]) 05/18/2021 Gastroesophageal reflux disease without esophagitis 07/09/2019 Gastroparesis 11/02/2022 Non-refractory idiopathic generalized epilepsy ([facility]) 11/22/2019 Osteoarthritis of knee 06/14/2019 Hypercholesterolemia ([facility]) 07/01/2021 Recurrent UTI 12/12/2022 Vitamin D deficiency 05/16/2019 Dizziness 12/13/2022 Acute nonintractable headache 12/13/2022 History of COVID-19 02/06/2023 Overweight 02/06/2023 Acute biliary pancreatitis without infection or necrosis 03/21/2023 Calculus of gallbladder without cholecystitis without obstruction 03/23/2023 Cholecystitis 04/18/2023 Encounter for postoperative care 04/18/2023 History of acute pancreatitis 04/18/2023 History of cholecystectomy 04/18/2023 Cough 04/18/2023 Anaphylactic syndrome 04/18/2023 PTSD (post-traumatic stress disorder) ([facility]) 02/24/2015 Tinea 10/03/2023 Weight gain 10/03/2023 Glucose intolerance 10/03/2023 Dyshidrosis 10/03/2023 Encounter for well adult exam without abnormal findings 12/04/2023 Cervical radiculopathy 12/26/2023 Obesity (BMI 35.0-39.9 without comorbidity) 02/06/2024 Localized edema 02/06/2024 Injury of right ankle 02/06/2024 Sprain of anterior talofibular ligament of right ankle 04/01/2024 Pain and swelling of left shoulder 04/03/2024 Asthmatic bronchitis with acute exacerbation ([facility]) 04/16/2024 Snoring 04/16/2024 Resolved Ambulatory Problems Diagnosis [...] nursing note reviewed. Exam conducted with a network development coordinator present. Vitals: Estimated body mass index is [...] reviewed, and patient is to proceed to [facility] OR. Follow Up: Patient is to follow up between 1-2 weeks post operative to assess proper healing and recovery fromprocedure. Documented by Sandy Toribio LPN on behalf of: Darwin Starr DO documented in this encounterPerry County Memorial HospitalPydxwzjwwq49-68-2412 History of Present illness Narrative* Iliana Mercado [...] she saw Dr. Hylton in 2021 in [facility]. 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 Hylton who is executive chef We discussed seeing endocrinology to help with [...] -Fibroscan Iliana Mercado PA-C documented in this encounterUpper Valley Medical Center01-03-2025 NoteHNO ID: [id number] Author: ILIANA MERCADO PA-C Service: ? Author Type: Physician Pricing Specialist Type: Progress Notes Filed: 04/26/2024 15:02 Note [...] she saw Dr. Hylton in 2021 in [facility]. 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 Hylton who is executive chef We discussed seeing endocrinology to help with [...] yearly No CT scan PCP treats with emperatriz and brian Last episode was in Feb 2022 6. [...] Narrative I have pers (more content not included)...[facility]01-03-[facility] Instructions* Patient Instructions* Iliana Mercado PA-C [...] do not hesitate to send me a Shared Performance message or call. Iliana Mercado PA-C documented in this encounterUpper Valley Medical Center01-03-2025 NoteHNO ID: [id number] Author: LYDIA KELLEY, DO Service: ? Author [...] Frequency: Intermittent Intervention/Comfort measure: Medication;Relaxation HPI: Orion aHrper is a 33 year old female presenting [...] return to discuss consent (more content not included)...[facility]01-03-2025 History of Present illness Narrative* Lydia [...] Lydia Kelley D.O. M.P.H. documented in this encounterUpper Valley Medical Center12-30-2024 Telephone encounter Note * Telephone Encounter - BALDO STRONG - 04/22/2024 9:58 AM EST Patient states she was seen in office on 04-16 and then later in the week she ended up at the Urgent Care due to her cough. She would like Eva Pearls called in for her cough. [facility] HospitalTsmosexdyb57-29-0361 Miscellaneous Notes* Telephone Encounter - BALDO STRONG - 04/22/2024 9:58 AM EST Patient states she was seen in office on 04-16 and then later in the week she ended up at the Urgent Care due to her cough. She would like Eav Pearls called in for her cough. documented in this encounterPerry County Memorial HospitalWcbwwfnmow42-44-1954 History of Present illness Narrative* Josephine Gilman NP - 04/18/2024 4:35 PM EST Images from the original note were not included. [address] , [address] [facility], [address] P: [phone] F: [phone] HPI Historian of HPI: patient rOion Harper is a 33 y.o. female who [...] 20 tablet; Refill: 0 documented in this encounterPerry County Memorial HospitalYzlhpgness43-57-8360 Telephone encounter Note* Telephone Encounter - Solo [...] she is unable to do the treadmill [facility] Work Phone: [phone] Miscellaneous Notes* Telephone Encounter - Solo Mora [...] to do the treadmill documented in this encounterUpper Valley Medical Center12-13-2024 Telephone encounter Note * Telephone Encounter - Criss Mccrary - 04/05/2024 1:01 PM EST Outside ep I have a copy @ my desk Criss Mccrary [facility]12-13-2024 Miscellaneous Notes* Telephone Encounter - Criss Holm - 04/05/2024 1:01 PM EST Outside ep I have a copy @ my desk Criss Mccrary documented in this encounterUpper Valley Medical Center12-11-2024 History of Present illness Narrative* Deena Lyn, JAGDISH - 04/03/2024 10:30 AM EST Images from [...] DAY IN THE MORNING 30 tablet 2 Ckdgpglscxv-Bbczifubr-Hbtbzl 100-62.5-25 MCG/ACT aerosol powder INHALE 1 PUFF [...] No follow-ups on file. documented in this encounterPerry County Memorial HospitalFzygvxtwqo29-94-4718 Telephone encounter Note* Telephone Encounter - Criss Mccrary - 04/02/2024 3:50 PM EST This 'Ankle Surgery Clearance' was faxed over to Dr. Giovani Hagen (PCP) @ [phone] for signing. I spoke with the patient. Scanned into outside ep. Criss Mccrary [facility]12-10-2024 Miscellaneous Notes* Telephone Encounter - Criss Holm - 04/02/2024 3:50 PM EST This 'Ankle Surgery Clearance' was faxed over to Dr. Giovani Hagen (PCP) @ [phone] for signing. I spoke with the patient. Scanned into outside ep. Criss Mccrary documented in this encounterUpper Valley Medical Center12-09-2024 Miscellaneous Notes* Telephone Encounter - Keri Jamil [...] follow up with Dr. Hylton who is executive chef We discussed seeing endocrinology to help with [...] Thanks, Connie Lucas, RN contains abnormal data [facility] LIVER PANEL Component Ref Range & [...] ALBUMIN GLOBULIN RATIO 1.3 ontains abnormal data [facility] LIVER PANEL Component Ref Range & [...] - 29 U/L 72 High Lipase Order: [id number] Component Ref Range & Units 1 yr ago Lipase 13 - 60 U/L 260 High Hepatic Function Panel Order: [id number] Component Ref Range & Units 1 yr [...] g/dL 5.7 Low Hepatic Function Panel Order: [id number] Component Ref Range & Units 1 yr [...] ntains abnormal data COMPREHENSIVE METABOLIC PANEL Order: [id number] Component Ref Range & Units 1 yr [...] Filt Rate >60 mL/min/1.73m2 >60 Lipase Order: [id number] Component Ref Range & Units 1 yr [...] follow up with Dr. Hylton who is executive chef We discussed seeing endocrinology to help with [...] FRONTAL/LAT Carol Winn MD documented [facility] Telephone encounter Note * Telephone Encounter - Keri Jamil - 04/01/2024 11:18 AM EST Pt called to schedule, per message below. First Est slot is July 26 for VV. Please review and advise if a New Pt slot can be used for this Pt. Thank you, [facility]12-09-2024 History of Present illness Narrative* Giovani Hagen [...] DAY IN THE MORNING 30 tablet 2 Ooejztbxzjh-Zpvepcbzb-Fgbxfl 100-62.5-25 MCG/ACT aerosol powder INHALE 1 PUFF [...] No follow-ups on file. documented in this encounterPerry County Memorial HospitalShcoxpsfpg91-75-8702 Telephone encounter Note* Telephone Encounter - Carol Winn MD - 03/29/2024 9:06 PM EST I saw her in the past for this Per my note, Was seen by Dr. Hylton locally Will obtain labs and fibroscan results She had Nausea and vomiting with statin Couldn't tolerate metformin due to nausea/vomiting and diarrhea She can still follow up with Dr. Hylton who is executive chef We discussed seeing endocrinology to help with weight loss and insulin resistance We also discussed cutting back on ETOH to one drink a week (currently 3-4 drinks a week) Did she follow up with Dr. Hylton? She can schedule OV with me if she prefers [facility] Work Phone: [phone] Telephone encounter Note* Telephone Encounter - Connie Lucas RN - 03/29/2024 10:[address] Winn, Pt JESSE Dx Fatty Liver, Liver Disease PT sent MYC message requesting a follow up labs show elevated LFTs and wanted them reviewed Please advise Thanks, Connie Lucas RN contains abnormal data [facility] LIVER PANEL Component Ref Range & [...] ALBUMIN GLOBULIN RATIO 1.3 ontains abnormal data [facility] LIVER PANEL Component Ref Range & [...] - 29 U/L 72 High Lipase Order: [id number] Component Ref Range & Units 1 yr ago Lipase 13 - 60 U/L 260 High Hepatic Function Panel Order: [id number] Component Ref Range & Units 1 yr [...] g/dL 5.7 Low Hepatic Function Panel Order: [id number] Component Ref Range & Units 1 yr [...] ntains abnormal data COMPREHENSIVE METABOLIC PANEL Order: [id number] Component Ref Range & Units 1 yr [...] Filt Rate >60 mL/min/1.73m2 >60 Lipase Order: [id number] Component Ref Range & Units 1 yr [...] follow up with Dr. Hylton who is executive chef We discussed seeing endocrinology to help with [...] XR CHEST 2V FRONTAL/LAT Carol Winn MD [facility]12-04-2024 Telephone encounter Note* Telephone Encounter - VINH Roque - 03/27/2024 1:03 PM EST OARRS reviewed, Rx sent into patient's pharmacy. [facility] HospitalXyfuhisebj52-03-8463 Miscellaneous Notes* Telephone Encounter - VINH Roque - 03/27/2024 1:03 PM EST OARRS reviewed, Rx sent into patient's pharmacy. * Telephone Encounter - Monet Motley MA - 03/27/2024 12:35 PM EST Per hieu to increase tramadol 50mg 2 po every 6 prn documented in this encounterPerry County Memorial HospitalObqfiazyom90-26-1066 Telephone encounter Note* Telephone Encounter - Monet Motley MA - 03/27/2024 12:35 PM EST Per hieu to increase tramadol 50mg 2 po every 6 prn [facility] HospitalPyljnlupaw96-87-8020 Telephone encounter Note* Telephone Encounter - Giovani Hagen MD - 03/25/2024 3:59 PM EST Images from the original note were not included. Patient: Orion Harper : 1990 PCP: Giovani Hagen MD Orion Harper is a 33 y.o. female presenting today [facility]. The main problem requiring [...] Flowsheet Row Patient Outreach from 01/17/2024 in [facility] with [facility] Information Discharge Date 01/10/24 Discharged To: Home Setting Discharge Hospital [facility] Engagement Call Start Time 1232 Admission Date [...] End Time 1233 No follow-ups on file. [facility] HospitalZvfvwtkkum18-06-6270 Miscellaneous Notes* Telephone Encounter - Giovani Hagen MD - 03/25/2024 3:59 PM EST Images from the original note were not included. Patient: Orion Harper : 1990 PCP: Giovani Hagen MD Orion Harper is a 33 y.o. female presenting today for follow-up [facility]. The main problem requiring [...] Flowsheet Row Patient Outreach from 01/17/2024 in [facility] with [facility] Information Discharge Date 01/10/24 Discharged To: Home Setting Discharge Hospital [facility] Engagement Call Start Time 1232 Admission Date [...] are in the chart. documented in this encounterPerry County Memorial HospitalPfbkqhjswh88-20-3564 Telephone encounter Note* Telephone Encounter - BALDO STRONG - 03/25/2024 1:02 PM EST Patient called asking about the results of her MRI, please advise. Results are in the chart. [facility] HospitalSyhkkwoihj64-33-8816 History of Present illness Narrative* Sandy Toribio [...] escitalopram (LEXAPRO) 20 mg, Oral, Every morning Fsaiybhnsdz-Lgqfbdhvi-Hvfuto 100-62.5-25 MCG/ACT aerosol powder INHALE 1 PUFF [...] Attention deficit hyperactivity disorder, predominantly inattentive type ([facility]) 09/23/2022 Bipolar disorder, in partial remission, most recent episode manic ([facility]) 09/23/2022 Diverticular disease of colon 09/23/2022 Dysphagia 09/23/2022 Elevated liver enzymes 09/23/2022 Exercise induced bronchospasm ([facility]) 09/23/2022 Finding of above normal blood pressure 09/23/2022 History of hysterectomy 09/23/2022 Hyperglycemia 09/23/2022 Hypersexuality 09/23/2022 Insomnia 09/23/2022 Irritable bowel syndrome with constipation 09/23/2022 Mild intermittent asthma without complication ([facility]) 09/23/2022 Mood swings 09/23/2022 Nephrolithiasis 09/23/2022 Nonalcoholic steatohepatitis (ENGLISH) 09/23/2022 Other specified abnormal findings of blood chemistry 09/23/2022 Poor concentration 09/23/2022 Sacroiliitis, not elsewhere classified ([facility]) 09/23/2022 Skin pain 09/23/2022 Thyroid enlargement ([facility]) 09/23/2022 Atherosclerosis of aorta ([facility]) 06/16/2020 Atherosclerosis of both carotid arteries 11/16/2020 Atherosclerosis of coronary artery without angina pectoris ([facility]) 05/18/2021 Gastroesophageal reflux disease without esophagitis 07/09/2019 Gastroparesis 11/02/2022 Non-refractory idiopathic generalized epilepsy ([facility]) 11/22/2019 Osteoarthritis of knee 06/14/2019 Hypercholesterolemia ([facility]) 07/01/2021 Recurrent UTI 12/12/2022 Vitamin D deficiency 05/16/2019 Dizziness 12/13/2022 Acute nonintractable headache 12/13/2022 History of COVID-19 02/06/2023 Overweight 02/06/2023 Acute biliary pancreatitis without infection or necrosis 03/21/2023 Calculus of gallbladder without cholecystitis without obstruction 03/23/2023 Cholecystitis 04/18/2023 Encounter for postoperative care 04/18/2023 History of acute pancreatitis 04/18/2023 History of cholecystectomy 04/18/2023 Cough 04/18/2023 Anaphylactic syndrome 04/18/2023 PTSD (post-traumatic stress disorder) ([facility]) 02/24/2015 Tinea 10/03/2023 Weight gain 10/03/2023 Glucose [...] nursing note reviewed. Exam conducted with a network development coordinator present. Vitals: Estimated body mass index is [...] of: Darwin Starr DO documented in this encounterPerry County Memorial HospitalLvgfxmluji64-63-0861 Telephone encounter Note* Telephone Encounter - VINH Roque - 03/07/2024 11:20 AM EST OARRS reviewed, Rx sent into patient's pharmacy. [place] [id number] Miscellaneous Notes* Telephone Encounter - VINH Roque - 03/07/2024 11:20 AM EST OARRS reviewed, Rx sent into patient's pharmacy. documented in this encounterPerry County Memorial HospitalBycvnhqmpv39-05-4903 Telephone encounter Note* Telephone Encounter - VINH Roque - 03/07/2024 9:14 AM EST OARRS reviewed, Rx sent into patient's pharmacy. [place] [id number] Miscellaneous Notes* Telephone Encounter - VINH Roque - 03/07/2024 9:14 AM EST OARRS reviewed, Rx sent into patient's pharmacy. * Telephone Encounter - Sasha Ng - 03/06/2024 4:22 PM EST ALPRAZolam (Xanax) 0.5 MG tablet [facility] documented in this encounterPerry County Memorial HospitalPexvuidhmw18-02-7720 History of Present illness Narrative* Arun Hernadez [...] to be instructed in home exercise program. 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 [...] to be instructed in home exercise program. Half-Way Goals: To be met in 10 weeks [...] Please sign below. Date: documented in this encounterPerry County Memorial HospitalMmcqtutjwc71-69-3488 History of Present illness Narrative* Giovani Hagen [...] DAY IN THE MORNING 30 tablet 2 Xhtvpkeylfx-Hdjmxpnvf-Lptnjr 100-62.5-25 MCG/ACT aerosol powder INHALE 1 PUFF [...] No follow-ups on file. documented in this encounterPerry County Memorial HospitalDdlmsvjgyf24-05-0873 Telephone encounter Note* Telephone Encounter - Millicent Cordova - 01/29/2024 11:22 AM EDT 25 visits out to 10/21/24 [facility] HospitalCxseebwtyv86-34-6504 Miscellaneous Notes* Telephone Encounter - Millicent Cordova - 01/29/2024 11:22 AM EDT 25 visits out to 10/21/24 documented in this encounterPerry County Memorial HospitalEzedathhzb40-26-3515 History of Present illness Narrative* Acacia Vigil, [...] escitalopram (LEXAPRO) 20 mg, Oral, Every morning Gokgxqqdyfa-Ldequkxdc-Jtpitg 100-62.5-25 MCG/ACT aerosol powder INHALE 1 PUFF [...] Attention deficit hyperactivity disorder, predominantly inattentive type ([facility]) 09/23/2022 Bipolar disorder, in partial remission, most recent episode manic ([facility]) 09/23/2022 Diverticular disease of colon 09/23/2022 Dysphagia 09/23/2022 Elevated liver enzymes 09/23/2022 Exercise induced bronchospasm ([facility]) 09/23/2022 Finding of above normal blood pressure 09/23/2022 History of hysterectomy 09/23/2022 Hyperglycemia 09/23/2022 Hypersexuality 09/23/2022 Insomnia 09/23/2022 Irritable bowel syndrome with constipation 09/23/2022 Mild intermittent asthma without complication ([facility]) 09/23/2022 Mood swings 09/23/2022 Nephrolithiasis 09/23/2022 Nonalcoholic steatohepatitis (ENGLISH) 09/23/2022 Other specified abnormal findings of blood chemistry 09/23/2022 Poor concentration 09/23/2022 Sacroiliitis, not elsewhere classified ([facility]) 09/23/2022 Skin pain 09/23/2022 Thyroid enlargement ([facility]) 09/23/2022 Atherosclerosis of aorta ([facility]) 06/16/2020 Atherosclerosis of both carotid arteries 11/16/2020 Atherosclerosis of coronary artery without angina pectoris ([facility]) 05/18/2021 Gastroesophageal reflux disease without esophagitis 07/09/2019 Gastroparesis 11/02/2022 Non-refractory idiopathic generalized epilepsy ([facility]) 11/22/2019 Osteoarthritis of knee 06/14/2019 Hypercholesterolemia ([facility]) 07/01/2021 Recurrent UTI 12/12/2022 Vitamin D deficiency 05/16/2019 Dizziness 12/13/2022 Acute nonintractable headache 12/13/2022 History of COVID-19 02/06/2023 Overweight 02/06/2023 Acute biliary pancreatitis without infection or necrosis 03/21/2023 Calculus of gallbladder without cholecystitis without obstruction 03/23/2023 Cholecystitis 04/18/2023 Encounter for postoperative care 04/18/2023 History of acute pancreatitis 04/18/2023 History of cholecystectomy 04/18/2023 Cough 04/18/2023 Anaphylactic syndrome 04/18/2023 PTSD (post-traumatic stress disorder) ([facility]) 02/24/2015 Tinea 10/03/2023 Weight gain 10/03/2023 [...] Abnormal LFTs Abnormal liver ultrasound 06/15/2022 Asthma ([facility]) COVID 03/11/2021 Delayed gastric emptying 09/12/2022 Gall [...] for cervical cancer screening 04/20/2022 Post depression ([facility]) HISTORY PAST MEDICAL HISTORY SOCIAL HISTORY Past [...] nursing note reviewed. Exam conducted with a network development coordinator present. Vitals: Estimated body mass index is [...] of: Darwin Starr DO documented in this encounterPerry County Memorial HospitalVcgzbpabwg71-55-3141 History of Present illness Narrative* Giovani Hagen [...] DAY IN THE MORNING 30 tablet 2 Hryhxfzouhc-Cgxaknocn-Gulkaq 100-62.5-25 MCG/ACT aerosol powder INHALE 1 PUFF [...] CT ANGIOGRAM CHEST 07/30/2018 CT ANGIOGRAM CHEST [facility] EGD 06/30/2022 Normal hypopharynx, normal [...] No follow-ups on file. documented in this [facility]09-16-2024 Telephone encounter Note* Telephone Encounter - Mala Hirsch - 01/08/2024 12:52 PM EDT [facility] [facility] HospitalTcdkcissjk03-80-9525 Miscellaneous Notes* Telephone Encounter - Mala Hirsch - 01/08/2024 12:52 PM EDT [facility] documented in this [facility]09-05-2024 Hospital Discharge instructions Patient Education 12/28/2023 15:59:41 Kidney Stones, Sdrk-jz-Ntuj Kidney Stones Kidney stones are rock-like masses [...] Follow these instructions at home: Medicines Take wvty-ryu-ytfrwlq and prescription medicines only as told by [...] provider. Document Revised: 12/02/2022 Document Reviewed: 12/02/2022 [employer] Patient Education 2023 [employer]. Follow Up Care 11/07/2022 15:52:12 With:OLEG OSEI, BHAVESH Patterson, URL Address: When:1 year [facility] 09-03-2024 History of Present illness Narrative* Giovani [...] DAY IN THE MORNING 30 tablet 2 Pjznhzhgvzu-Jjxuakxiu-Kvsjaf 100-62.5-25 MCG/ACT aerosol powder INHALE 1 PUFF [...] No follow-ups on file. documented in this encounterPerry County Memorial HospitalBtghmhnsui77-26-8806 History of Present illness Narrative* Belle Mckoy Tech - 12/19/2023 3:44 PM EDT EVENT MONITOR DISPOSABLE PATCH INSTRUCTIONS Patient Name: Orion Harper [facility] Number: [id number] Skin prepped and cleansed with alcohol Patch secured to prepped area Monitor Activated Serial #: [id number] Patient Instructed: Prescribed order timeframe Bathing guidelines Usage of event button and diary documentation Return of monitor at the end of prescribed order Call with problems [phone] or [phone] ext. [phone] Patient expresses a good understanding of instructions Tristian Pretty documented in this encounterUpper [facility]08-[facility]24 Instructions* Patient Instructions* Solo Mora MD - 12/19/2023 3:27 PM EDT Next Steps: 1). Please wear a heart monitor for 2 weeks and mail it back 2). Please get a stress echo done and follow up with me afterwards documented in this encounterUpper Valley [facility] Center08-27-2024 History of Present illness Narrative* Solo Mora MD - 12/19/2023 2:45 PM EDT Images from the original note were not included. [facility] [place] Meghna Hooker Department of Cardiovascular Medicine SECTION OF CARDIAC PACING and ELECTROPHYSIOLOGY OUTPATIENT VISIT DATE December 19, 2023 OUTPATIENT VISIT TYPE NEW PRIMARY CARE PHYSICIAN: Giovani Hagen MD [address] [place] [id number] CHIEF COMPLAINT: Syncope, cardiac evaluation for family [...] had any workup done including Stress Echo, s iron worker or 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 Reports symptoms of palpitations [...] had any workup done including Stress Echo, s iron worker or 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 PLAN AND RECOMMENDATIONS: - Exercise stress echo for exertional syncope to rule out structural or arrhythmic cause - 2 week tina Fitzgerald personally interviewed, confirmed and edited the above information as obtained by others. CONTACT INFORMATION: Solo Mora MD documented in this encounterUpper Valley Medical Center08-26-2024 Telephone encounter Note * Telephone Encounter - RT. Aroldo Calvo - 12/18/2023 10:09 AM EDT Patient had labwork performed on 12-13-2023. Dr. Colvin wanted you to be aware so you could review them. [facility] HospitalAkijyquyif31-47-5775 Miscellaneous Notes* Telephone Encounter - RT. Aroldo Calvo - 12/18/2023 10:09 AM EDT Patient had labwork performed on 12-13-2023. Dr. Colvin wanted you to be aware so you could review them. documented in this encounterPerry County Memorial HospitalJcatupyody18-38-0015 Telephone encounter Note* Telephone Encounter - Criss Mccarry - 11/02/2023 10:39 AM EDT Images from the original note were not included. Records are in Care Everywhere: EP Referral- 11/01/23 (Dr. Shilo Dillon/Cardiology) Criss Mccrary [facility]07-11-2024 Miscellaneous Notes* Telephone Encounter - Criss Holm - 11/02/2023 10:39 AM EDT Images from the original note were not included. Records are in Care Everywhere: EP Referral- 11/01/23 (Dr. Shilo Dillon/Cardiology) Criss Mccrary documented in this encounterUpper Valley Medical Center11-27-2023 Miscellaneous Notes* Telephone Encounter - Charlette Campuzano [...] PPI prior to transfer. documented in this encounterUpper Valley Medical Center07-13-2023 Miscellaneous Notes* Telephone Encounter - Janny Frances - 11/03/2022 3:18 PM EDT PA for Ibsrela initiated electronically. Awaiting response [facility] ID# [id number] Rx BIN [id number] Rx PCN CLAIMCR Rx Grp STOH documented in this encounterUpper Valley Medical Center07-12-2023 History of Present illness Narrative* Soraida Caldwell, PhD - 11/02/2022 5:16 PM EDT Behavioral Medicine [facility] [place] Name: Orion Harper MR#: [id number] Date: 11/02/2022 Time: 1 hour Referred by: [...] She was given the website for the [facility] Behavioral Medicine Program and shown the relaxation recordings with the recommendation to practice this and the rationale behind their use. Follow-up with Dr. Conteh was discussed as well as encouraging her to continue her PTSD work with a local trauma therapist. Soraida Zhang, Ph.D. documented in this encounterUpper Valley Medical Center07-12-2023 History of Present illness Narrative* Samuel Freeman MD - 11/02/2022 1:00 PM EDT Assessment ASSESSMENT 32 year old female with medical refractory gastroparesis. PLAN I discussed surgical therapy for gastroparesis in detail. Orionbianca Harper is candidate for furthermedical treatment. Needs to stop Wegovy May consider for wireless motility capsule study Constipation medication change per Dr. 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 Maria Dolores Corey, P Sp Ddsi Clinical Pool Please ask her to see AIRCRAFT ENGINE INSTALLER to r/o endometriosis there was a very slight abnormal wave (not strong) suggesting its possible Called and spoke with the patient and relayed providers message. documented in this [facility]06-27-2023 Miscellaneous Notes* Telephone Encounter - Karen Haney LPN - 10/18/2022 11:43 AM EDT PA initiated via [employer]. Await response. Covered: Retail, Mail Order Unknown: Specialty, Long-Term Care Group ID: [id number] Group name: BIN: [id number] PCN: CLAIMCR documented in this [facility]06-27-2023 History of Present illness Narrative* Maria Dolores Corey DO - 10/18/2022 7:49 AM EDT Images from the original note were not included. documented in this [facility]06-26-2023 Nurse Note* Janny Frances - 10/17/2022 10:47 AM EDT EGG completed. Able to drink the 500 ml of water without any difficulty. documented in this encounterUpper Valley Medical Center05-22-2023 History of Present illness Narrative* Oziel Vasquez [...] radiation safety can be found usingthis link: [email or web address] SIGNATURE: RT Amber(R) PATIENT NAME: Orion Harper DATE: September 12, 2022 TIME: 2:45 PM PAGER/CONTACT #: documented in this encounterUpper Valley Medical Center05-10-2023 Nurse Note* Wilma Limon RN - 08/31/2022 [...] Wilma Limon RN In Department: AMBULATORY SURGERY [facility]05-10-2023 Nurse Note* Wilma Limon RN - 08/31/2022 [...] In Department: AMBULATORY SURGERY documented in this encounterUpper Valley Medical Center05-10-2023 History and physical note * Carol Winn [...] DATE: August 31, 2022 TIME: 2:51 PM [facility]05-10-2023 History and physical note* Carol Winn MD [...] 2022 TIME: 2:51 PM documented in this encounterUpper Valley Medical Center05-10-2023 Nurse Note* Ayleen Aj RN - 08/31/2022 [...] Ayleen Aj RN In Department: AMBULATORY SURGERY [facility]05-03-2023 Miscellaneous Notes* Telephone Encounter - Светлана Agosto Ma - 08/24/2022 3:59 PM EDT Lm to confirm procedure for 08-31-22 documented in this encounterUpper Valley Medical Center03-14-2023 Hospital Discharge instructions Patient Education 07/05/2022 08:39:29 [...] With:Madhuri MISHRA Address: [facility] [address] [place] [address]- Business (1) When:11/04/2022 08:39:10 Comments:With a stone metabolic work-up [facility]03-09-2023 Nurse Note* Wilma Limon RN - 06/30/2022 12:46 PM EST Pt denies any nausea at this time. Pt given 3 oz of apple juice per request and tolerating at this time. Pt denies any other s/s at this time, smiling in conversation, 500ml of Nacl completed as well. Pt reports she feels ready to go home. [facility]03-09-[facility] Nurse Note* Wilma Limon RN - 06/30/2022 [...] In Department: AMBULATORY SURGERY documented in this encounterUpper Valley Medical Center03-09-2023 Nurse Note* Wilma Limon RN - 06/30/2022 [...] Pt resting in bed at this time. [facility] Nurse Note* Wilma Limon RN - 06/30/2022 [...] By: Wilma Limon In Department: [facility]BULATORY SURGERY [facility] History and physical note* Carol Winn MD [...] DATE: June 30, 2022 TIME: 11:35 AM [facility]03-09-2023 History and physical note* Carol Winn MD [...] 2022 TIME: 11:35 AM documented in this encounterUpper Valley Medical Center03-09-2023 Nurse Note* Elissa Kwok RN - 06/30/2022 [...] Elissa Kwok RN In Department: AMBULATORY SURGERY [facility]03-02-2023 Miscellaneous Notes* Telephone Encounter - Светлана Agosto Ma - 06/23/2022 3:18 PM EST Confirmed procedure for 06-30-22 documented in this encounterUpper Valley Medical [facility] History of Present illness Narrative* Monet Osei [...] 15, 2022 8:08 PM [facility] Miscellaneous Notes* Telephone Encounter - Wilma Murray [...] MD 06/14/2022 9:35 AM EST Back to [facility] Milly, I reviewed the ultrasound done in November This hypodensity was felt to be a benign cyst I will order a follow up ultrasound to be done This is reassuring Carol Winn MD 06/14/2022 9:29 AM EST Oh Milly, the CT scan showed Fatty liver [...] if needed pending results [facility] History of Present illness Narrative* Diamond Rojas, [...] 10, 2022 10:01 AM [facility] History of Present illness Narrative* Acacia Yang [...] 27, 2022 12:29 PM [facility] History of Present illness Narrative* Carol Winn [...] follow up with Dr. Hylton who is executive chef We discussed seeing endocrinology to help with [...] No follow-ups on file. [facility] Evaluation note* Encounter Date Diagnosis Assessment Notes Treatment Notes Treatment Clinical Notes Apr, ENGLISH (nonalcoholic steatohepatitis) (ICD-10 - K75.81) Apr, Abnormal ultrasound (ICD-10 - R93.89) Apr, Elevated liver enzymes (ICD-10 - R74.8) Apr, Liver cyst (ICD-10 - K76.89) [facility] Other Evaluation + Plan note Future Appointments Appointment Date:06/30/2022 10:00:00 AM Scheduled Provider: Location:[facility] Appointment Type:Urology CALL PAT FT Appointment Date:07/05/2022 08:15:00 AM Scheduled Provider: Location:[facility] Appointment Type:Urology FT Diagnostic Tests Pending * [facility]ments Appointment Date:11/07/2022 03:15:00 PM Scheduled Provider:Madhuri MISHRA MD [facility] Future Appointments Appointment Date:12/30/2024 03:15:00 PM Scheduled Provider:Madhuri MISHRA [facility] Visit [facility] evaluation + Plan note Future Appointments Appointment Date:12/31/2024 03:30:00 PM Scheduled Provider:Iliana Cramer PA-C Location:[facility] Appointment Type:URO Complex Office Visit [facility] evaluation + Plan note Future Appointments Appointment Date:12/31/2025 03:30:00 PM Scheduled Provider:Iliana Cramer PA-C Location:[facility] Appointment Type:URO [facility] noteNo assessment information available [facility] Work Phone: [facility]* Diagnosis Fatty liver- Primary Other chronic nonalcoholic liver disease Bilious vomiting with nausea Right sided abdominal pain Abdominal pain, unspecified site Nausea Nausea alone History of diverticulitis SOB (shortness of breath) Shortness of breath [facility] Diagnosis Liver lesion- Primary Other specified disorders of liver [facility] Diagnosis Gastroparesis- Primary [facility] Diagnosis Gastroparesis- Primary [facility] Diagnosis Irritable bowel syndrome with constipation- Primary Irritable bowel syndrome [facility] Diagnosis Gastroparesis [facility] Diagnosis Gastroparesis- Primary [facility]* Diagnosis SOB (shortness of breath) Shortness of breath [facility] Diagnosis Liver lesion Other specified disorders of liver [facility] Diagnosis Elevated LFTs Other abnormal blood chemistry [facility] Diagnosis Bilious vomiting with nausea Right sided abdominal pain Abdominal pain, unspecified site Nausea Nausea alone [facility] Diagnosis Nausea Nausea alone [facility]* Diagnosis Gastroparesis- Primary [facility]* Diagnosis Syncope and collapse- Primary documented in this encounter [facility] note* Diagnosis Syncope, unspecified syncope type- Primary documented in this encounter [facility] note* Diagnosis Syncope, unspecified syncope type- Primary documented in this encounter [facility] note* Diagnosis Nausea- Primary Nausea alone PUD (peptic ulcer disease) Peptic ulcer, unspecified site, unspecified as acute or chronic, without mention of hemorrhage, perforation, or obstruction Nausea Nausea alone documented in this encounter [facility] note* Diagnosis PUD (peptic ulcer disease)- [...] perforation, or obstruction documented in this encounter [facility] note* Diagnosis Attention deficit hyperactivity disorder, [...] asthma (CMS/HCC)- Primary [facility] Diagnosis Elevated LFTs- Primary Other abnormal blood chemistry BRBPR (bright red blood per rectum) Hemorrhage of rectum and anus [facility] Diagnosis Attention deficit hyperactivity [...] inattentive type (CMS/HCC) documented [facility]* Diagnosis Attention deficit hyperactivity [...] 35.0-39.9 without comorbidity) documented in this encounter [facility]* Diagnosis Elevated LFTs- Primary Other abnormal blood chemistry [facility] Diagnosis Elevated LFTs- Primary Other abnormal blood chemistry [facility]* Diagnosis Attention deficit hyperactivity disorder, predominantly [...] in partial remission, most recent episode manic ([facility]/HCC) Tremors of nervous system- Primary Mild intermittent asthma without complication ([facility]/HCC) Moderate persistent asthmatic bronchitis with acute exacerbation ([facility]/HCC)- Primary Sprain of anterior talofibular ligament of right ankle, subsequent encounter [facility] Other dyspnea and respiratory abnormality Peroneal tendon tear, right, initial encounter- Primary Sprain of anterior talofibular ligament of right ankle, subsequent encounter Osteochondritis dissecans of ankle, right Severe ankle sprain, right, initial encounter documented in this encounter [facility]* Diagnosis Right ankle instability- Primary Other joint derangement, not elsewhere classified, ankle and foot Right ankle instability Other joint derangement, not elsewhere classified, ankle and foot [facility] Diagnosis Sprain of anterior talofibular ligament of right ankle, initial encounter- Primary Right ankle instability Other joint derangement, not elsewhere classified, ankle and foot [facility]* Diagnosis Attention deficit hyperactivity [...] of spine- Primary [facility] Diagnosis ENGLISH (nonalcoholic steatohepatitis)- Primary Other chronic nonalcoholic liver disease Right ankle instability Other joint derangement, not elsewhere classified, ankle and foot [facility]* Diagnosis Attention deficit hyperactivity [...] cervix and uterus [facility] Diagnosis BRBPR (bright red blood per rectum) Hemorrhage of rectum and anus [facility] Diagnosis Attention deficit hyperactivity [...] of impulse control PTSD (post-traumatic stress disorder) ([facility]) Posttraumatic stress disorder documented in this encounter [facility]* Diagnosis Other specified dyspareunia- Primary Pelvic pain in female Unspecified symptom associated with female genital organs Pelvic pain in female- Primary Unspecified symptom associated with female genital organs Other specified dyspareunia [facility] Diagnosis Pelvic pain in female- Primary Unspecified symptom associated with female genital organs Other specified dyspareunia [facility]* Diagnosis Chronic idiopathic constipation Unspecified constipation [facility]* Diagnosis Attention deficit hyperactivity disorder, predominantly inattentive type (CMS/HCC)- Primary Bipolar disorder, in partial remission, most recent episode manic ([facility]/HCC) Dizziness Dizziness and giddiness Nonintractable episodic [...] epileptic syndromes, not intractable, without status epilepticus ([facility]/HCC) 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) Other disorder of impulse control PTSD (post-traumatic stress disorder) ([facility]/HCC) Posttraumatic stress disorder Peroneal tendon tear, right, [...] and respiratory abnormality 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), predominantly inattentive type (CMS/HCC) Bipolar disorder, in partial remission, most recent episode manic (CMS/HCC) Prediabetes Other abnormal glucose Anxiety- Primary Anxiety state, unspecified Generalized idiopathic epilepsy and epileptic syndromes, not intractable, 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) 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) Other disorder of impulse control PTSD (post-traumatic stress disorder) ([facility]/HCC) Posttraumatic stress disorder Anxiety Anxiety state, unspecified PTSD (post-traumatic stress disorder) ([facility]/HCC) Posttraumatic stress disorder documented in this encounter [...] system- Primary Mild intermittent asthma without complication ([facility]/HCC) Moderate persistent asthmatic bronchitis with acute exacerbation ([facility]/HCC)- Primary Sprain of anterior talofibular ligament of right ankle, subsequent encounter Snoring Other dyspnea and respiratory abnormality 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 Attention deficit [...] subsequent encounter- Primary documented in this encounter [facility]* Diagnosis Palpitation- Primary Palpitations [facility] Diagnosis Attention deficit hyperactivity [...] system- Primary Mild intermittent asthma without complication ([facility]/HCC) Moderate persistent asthmatic bronchitis with acute exacerbation ([facility]/HCC)- Primary Sprain of anterior talofibular ligament of right ankle, subsequent encounter Snoring Other dyspnea and respiratory abnormality 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), predominantly inattentive type ([facility]/HCC) Bipolar disorder, in partial remission, most recent episode manic ([facility]) Prediabetes Other abnormal glucose Anxiety- Primary Anxiety state, unspecified Generalized idiopathic epilepsy and epileptic syndromes, not intractable, without status epilepticus ([facility]/HCC) 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) Other disorder of impulse control PTSD (post-traumatic stress disorder) ([facility]) Posttraumatic stress disorder 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 Anxiety [...] in partial remission, most recent episode manic ([facility]/HCC) Anxiety Anxiety state, unspecified Sinus tachycardia Other specified cardiac dysrhythmias Fall in home, sequela- Primary Laceration of right knee, subsequent encounter Laceration of right knee without complication, sequela- Primary [facility] Diagnosis Rectal pain- Primary Anal or rectal pain Hemorrhoids, unspecified hemorrhoid type [facility] Diagnosis Attention deficit hyperactivity disorder, predominantly inattentive type (CMS/HCC)- Primary Bipolar disorder, in partial remission, most recent episode manic ([facility]) Dizziness Dizziness and giddiness Nonintractable episodic headache, unspecified headache type Attention deficit hyperactivity disorder, predominantly inattentive type (CMS/HCC)- Primary Anxiety Anxiety state, unspecified Bipolar disorder, in partial remission, most recent episode manic ([facility]/HCC) History of cholecystectomy Other acquired absence [...] with panic disorder [facility] Diagnosis Pelvic floor dysfunction- Primary Pelvic muscle wasting Chronic constipation Unspecified constipation Gastroparesis [facility] Diagnosis Attention deficit hyperactivity [...] of status migrainosus [facility] Diagnosis Muscle spasm- Primary Spasm of muscle Pelvic floor dysfunction Pelvic muscle wasting Chronic constipation Unspecified constipation [facility] Diagnosis Pelvic floor dysfunction Pelvic muscle wasting Chronic constipation Unspecified constipation [facility] Diagnosis Pelvic floor dysfunction Pelvic muscle wasting Chronic constipation Unspecified constipation [facility] Diagnosis Pelvic floor dysfunction Pelvic muscle wasting Chronic constipation Unspecified constipation [facility]* Diagnosis Attention deficit hyperactivity disorder, [...] Morbid (severe) obesity due to excess calories ([facility]-HCC) Impaired fasting glucose Obesity, class 2 Body mass index (BMI) 36.0-36.9, adult documented in this encounter [facility]* Diagnosis Attention deficit hyperactivity [...] Morbid (severe) obesity due to excess calories ([facility]) Impaired fasting glucose Obesity, class 2 Body [...] Morbid (severe) obesity due to excess calories ([facility]-HCC) Impaired fasting glucose Obesity, class 2 Body [...] in partial remission, most recent episode manic ([facility]) Dizziness Dizziness and giddiness Nonintractable episodic headache, unspecified headache type Attention deficit hyperactivity disorder, predominantly inattentive type- Primary Anxiety Anxiety state, unspecified Bipolar disorder, in partial remission, most recent episode manic ([facility]) History of cholecystectomy Other acquired absence of [...] in partial remission, most recent episode manic ([facility]) Tremors of nervous system- Primary Mild intermittent asthma without complication ([facility]) Moderate persistent asthmatic bronchitis with acute exacerbation ([facility])- Primary Sprain of anterior talofibular ligament of right ankle, subsequent encounter Snoring Other dyspnea and respiratory abnormality 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), predominantly inattentive type Bipolar disorder, in partial remission, most recent episode manic ([facility]) Prediabetes Other abnormal glucose Anxiety- Primary Anxiety state, unspecified Generalized idiopathic epilepsy and epileptic syndromes, not intractable, without status epilepticus ([facility]) Trichotillomania Other disorder of impulse control PTSD [...] Morbid (severe) obesity due to excess calories ([facility]-HCC) Impaired fasting glucose Obesity, class 2 Body mass index (BMI) 36.0-36.9, adult Other synovitis and tenosynovitis, right ankle and foot- Primary Right foot pain Pain in soft tissues of limb Other enthesopathy of right foot and ankle [facility] Diagnosis Chronic pelvic pain in female- [...] female genital organs [facility] Diagnosis Attention deficit hyperactivity [...] Morbid (severe) obesity due to excess calories ([facility]) Impaired fasting glucose Obesity, class 2 Body mass index (BMI) 36.0-36.9, adult Well adult health check- Primary Unspecified general medical examination Chest pain, unspecified type Elevated liver enzymes Other nonspecific abnormal serum enzyme levels Type 2 diabetes mellitus without complication, without long-term current use of insulin (HCC) [facility] N[facility]ative - Reported* Type Description Date Medical History Anxiety Medical History Depression Medical History Diverticulosis Medical History bipolar Surgical History C section Surgical History hysterectomy Hospitalization History see above Hospitalization History diverticulitis 01/24/18 Hospitalization History NONE ON THE LAST YEAR [facility] Other Hospital course Narrative No data available for this section [facility] Discharge instructions No data available for this section [facility] No data available for this section [facility] Outpatient Procedure (Routine) - Authorized Specialty Diagnoses / Procedures Referred By Norma kennedy Referred To Contact [facility] Diagnoses Bilious vomiting with nausea Right sided abdominal pain Procedures EGD DIAGNOSTIC ESOPHAGOGASTRODUODENOSC OPY [place] [address] [place] [address] [facility] [place] [address] [place] [address] Referral ID Status Reason Start Date Expiration Date Visits Requested Visits Authorized [id number] Authorized Auto-Generat ed Referral 05/27/2022 05/27/2023 1 1 * MRI/CT (Routine) - Authorized Specialty Diagnoses / Procedures Referred By Norma kennedy Referred To Contact CT IMAGING Diagnoses Bilious vomiting with nausea Right sided abdominal pain Nausea Procedures CT ABD/PEL WO IVCON CT ABD & P[place] [address] [place] [address] Ct Imaging Referral ID Status Reason Start Date Expiration Date Visits Requested Visits Authorized [id number] Authorized Auto-Generat ed Referral 05/27/2022 06/26/2023 1 1 [facility] for referral (narrative)* Diagnostic Procedure Only (Routine) - Authorized Specialty Diagnoses / Procedures Referred By Contac t Referred To Contact [facility] Diagnoses Liver lesion Procedures US ABD RT UPPER QUADRANT US ABDOMINAL REAL TIME W/IMAGE LIMITED Carol Winn [place] [id number] [place] [phone] [facility] Referral ID Status Reason Start Date Expiration Date Visits Requested Visits Authorized [id number] Authorized Auto-Generat ed Referral 06/14/2022 07/14/2023 1 1 [facility] for referral (narrative)* Diagnostic Procedure Only (Routine) - Closed Specialty Diagnoses / Procedures Referred By Norma t Referred To Contact [facility] Diagnoses Liver lesion Procedures US ABD RT UPPER QUADRANT US ABDOMINAL REAL TIME W/IMAGE LIMITED Carol Winn MD [id number] [place] [phone] [place] [address] Referral ID Status Reason Start Date Expiration Date V isits Requested Visits Authorized [id number] Closed Auto-Generate d Referral 06/14/2022 07/14/2023 1 1 [facility] for referral (narrative)* Diagnostic Procedure Only (Routine) - Closed Specialty Diagnoses / Procedures [facility] Referred To Contact [facility] Diagnoses Elevated LFTs Procedures US ABD RT UPPER QUADRANT US ABDOMINAL [place] W/[place] [address] [place] [address] [place] [address] Referral ID Status Reason Start Date Expiration Date V isits Requested Visits Authorized [id number] Closed Auto-Generate d Referral 11/24/2021 12/24/2022 1 1 [facility] for referral (narrative)* Diagnostic Procedure Only (Routine) - Closed Specialty Diagnoses / Procedures Referred By Contac t Referred To Contact [facility] Diagnoses Nausea Procedures NM GASTRIC EMPTYING SOLID [place] [address] [place] [address] [facility] [address] [id number] Referral ID Status Reason Start Date Expiration Date V isits Requested Visits Authorized [id number] Closed Auto-Generate d Referral 08/31/2022 09/30/2023 1 1 [facility] for referral (narrative)* Outpatient Procedure (Routine) - Authorized Specialty Diagnoses / Procedures Referred By Contac t Referred To Contact [facility] Diagnoses Gastroparesis Procedures ECG COMPLETE ECG ROUTINE ECG W/LEAST 12 LDS W/I&R Solo Mora MD [address] [place] [address] [facility] [place] [address] Referral ID Status Reason Start Date Expiration Date Visits Requested Visits Authorized [id number] Authorized Auto-Generat ed Referral 11/02/2023 11/01/2024 1 1 T [facility] for referral (narrative)* Outpatient Procedure (Routine) - Authorized Specialty Diagnoses / Procedures [facility] Referred To Contact [facility] Diagnoses Syncope and collapse Procedures ECG COMPLETE ECG ROUTINE ECG W/LEAST 12 LDS W/I&R Solo Mora MD [address] [place] [address] [facility] [address] [address] Referral ID Status Reason Start Date Expiration Date Visits Requested Visits Authorized [id number] Authorized Auto-Generat ed Referral 12/19/2023 12/18/2024 1 1 [facility] for referral (narrative)* Diagnostic Procedure Only (Routine) - Closed Specialty Diagnoses / Procedures Referred By Norma kennedy Referred To Contact [facility] Diagnoses Nausea Procedures NM GASTRIC EMPTYING SOLID [place]STRIC [place] [address] [place] [address] Molecular [facility] Functional [facility] [address] [phone] Referral ID Status Reason Start Date Expiration Date V isits Requested Visits Authorized [id number] Closed Auto-Generate d Referral 08/31/2022 09/30/2023 1 1 * Outpatient Procedure (Routine) - Closed Specialty Diagnoses / Procedures Referred By Norma kennedy Referred To Contact [facility] Diagnoses PUD (peptic ulcer disease) Procedures EGD DIAGNOSTIC ESOPHAGOGASTRODUODENOSC OPY [place]ANS[place] [address] [place] [address] [facility] [address] [address] Referral ID Status Reason Start Date Expiration Date V isits Requested Visits Authorized [id number] Closed Auto-Generate d Referral 06/30/2022 07/01/2023 1 1 [facility] for referral (narrative)* Outpatient Procedure (Routine) - Closed Specialty Diagnoses / Procedures Referred By Norma kennedy Referred To Contact [facility] [place] Diagnoses PUD (peptic ulcer disease) Procedures EGD DIAGNOSTIC ESOPHAGOGASTRODUODENOSC OPY [place] [address] [place] [address] [address] Referral ID Status Reason Start Date Expiration Date V isits Requested Visits Authorized [id number] Closed Auto-Generate d Referral 06/30/2022 07/01/2023 1 1 * Outpatient Procedure (Routine) - Closed Specialty Diagnoses / Procedures Referred By Contac t Referred To Contact [facility] [place] Diagnoses Bilious vomiting with nausea Right sided abdominal pain Procedures EGD DIAGNOSTIC ESOPHAGOGASTRODUODENOSC OPY [place] [address] [place] [address] [address] Referral ID Status Reason Start Date Expiration Date V isits Requested Visits Authorized [id number] Closed Auto-Generate d Referral 05/27/2022 05/27/2023 1 1 [facility] for referral (narrative)* Outpatient Procedure (Routine) - Authorized Specialty Diagnoses / Procedures Referred By Contac t Referred To Contact [facility] Diagnoses BRBPR (bright red blood per rectum) Procedures COLONOSCOPY DIAGNOSTIC COLONOSCOPY FLX DX W/COLLJ SPEC WHEN PFRMD Iliana Mercado PA-C [address] [place] [address] [address] Referral ID Status Reason Start Date Expiration Date Visits Requested Visits Authorized [id number] Authorized Auto-Generat ed Referral 04/26/2024 04/26/2025 1 1 * Outpatient Procedure (Routine) - Authorized Specialty Diagnoses / Procedures Referred By Contac t Referred To Contact [facility] Diagnoses Elevated LFTs Procedures DDI VIBRATION CONTROLLED TRANSIENT ELASTOGRAPHY (VCTE) LIVER ELASTOGRAPHY W/O IMAG W/I&R Iliana Mercado PA-C [address] [place] [address] [facility] [address] [place] [address] Referral ID Status Reason Start Date Expiration Date Visits Requested Visits Authorized [id number] Authorized Auto-Generat ed Referral 04/26/2024 04/26/2025 1 1 [facility] for referral (narrative)* Outpatient Procedure (Routine) - Pending Review Specialty Diagnoses / Procedures Referred By Norma t Referred To Contact [facility] Diagnoses ENGLISH (nonalcoholic steatohepatitis) Procedures LIVER BIOPSY NEEDLE BIOPSY LIVER NEEDLE PERCUTANEOUS Rosario Mcconnell I, MD [address] [place], [place] [id number] [place] [phone] Referral ID Status Reason Start Date Expiration Date Visits Requested Visits Authorized [id number] Pending Review Auto-Generat ed Referral 05/14/2024 05/14/2025 1 1 [facility] for referral (narrative)* Outpatient Procedure (Routine) - Closed Specialty Diagnoses / Procedures [facility] Diagnoses BRBPR (bright red blood per rectum) Procedures COLONOSCOPY DIAGNOSTIC COLONOSCOPY FLX DX W/COLLJ SPEC WHEN PFRMD Iliana Mercado PA-C [id number] [place], [place] [address] [place] [address] [place] [phone] Referral ID Status Reason Start Date Expiration Date V isits Requested Visits Authorized [id number] Closed Auto-Generate d Referral 04/26/2024 04/26/2025 1 1 [facility] for visit NarrativePATIENT HERE AT THE REQUEST OF DR. HAGEN FOR ENGLISH & ABNORMAL US. ULTRASOUND AND LABS IN REFERRAL. PATIENT STATES SHE FEELS LETHARGIC & HAS OCCASIONAL ABDOMINAL PAINNorth Lob Other Refsnm for visit Narrative* Diagnostic Procedure Only (Routine) - Closed Specialty Diagnoses / Procedures [facility] Referred To Contact US IMAGING Diagnoses Liver lesion Procedures US ABD RT UPPER QUADRANT US ABDOMINAL REAL [place] W/[place] [address] [place] [address] [facility] Referral ID Status Reason Start Date Expiration Date V isits Requested Visits Authorized [id number] Closed Auto-Generate d Referral 06/14/2022 07/14/2023 1 1 [facility] for visit Narrative* Diagnostic Procedure Only (Routine) - Closed Specialty Diagnoses / Procedures [facility] Referred To Contact US IM[facility] Diagnoses Elevated LFTs Procedures US ABD RT UPPER QUADRANT US ABDOMINAL REAL [place] W/[place] [address] [place] [address] [facility]95 Referral ID Status Reason Start Date Expiration Date V isits Requested Visits Authorized [id number] Closed Auto-Generate d Referral 11/24/2021 12/24/2022 1 1 [facility] for visit Narrative* Diagnostic Procedure Only (Routine) - Closed Specialty Diagnoses / Procedures [facility] Referred To Contact MOLECULAR & FUNCTIONAL IMAGING Diagnoses Nausea Procedures NM GASTRIC EMPTYING SOLID GASTRIC [place] [address] [place] [address] Molecular & Functional Imaging [address] [place], [place] [id number] Referral ID Status Reason Start Date Expiration Date V isits Requested Visits Authorized [id number] Closed Auto-Generate d Referral 08/31/2022 09/30/2023 1 1 [facility] for visit Narrative* Outpatient Procedure (Routine) - Closed Specialty Diagnoses / Procedures [facility] Ref[facility] Diagnoses PUD (peptic ulcer disease) Procedures EGD DIAGNOSTIC ESOPHAGOGASTRODUODENOSC OPY [place] [address] [place] [address] [facility] [address] [place] [address] Referral ID Status Reason Start Date Expiration Date V isits Requested Visits Authorized [id number] Closed Auto-Generate d Referral 06/30/2022 07/01/2023 1 1 [facility] for visit Narrative* Outpatient Procedure (Routine) - Closed Specialty Diagnoses / Procedures Referred By Norma kennedy Referred To Contact [facility] Diagnoses Bilious vomiting with nausea Right sided abdominal pain Procedures EGD DIAGNOSTIC ESOPHAGOGASTRODUODENOSC OPY [place] [address] [place] [address] [facility] [address] [place] [address] Referral ID Status Reason Start Date Expiration Date V isits Requested Visits Authorized [id number] Closed Auto-Generate d Referral 05/27/2022 05/27/2023 1 1 [facility] for visit Narrative* Rehabilitation - Outpatient (Routine) - Authorized Specialty Diagnoses / Procedures Referred By Norma kennedy Referred To Contact Physical Therapy Diagnoses Cervical radiculopathy Procedures [place] OFFICE/OUTPATIENT NEW HIGH MDM 60 MINUTES Giovani Hagen MD 112 [facility] [address] [place] [address] Phone: tel: fax: Zhen Burgess, PT 112 [facility] [address] [place] [address] Phone: tel: fax: Referral ID Status Reason Start Date Expiration Date Visits Requested Visits Authorized [id number] Authorized Specialty Services Required 01/25/2024 10/21/2024 25 25 [facility] [place] for visit Narrative* Rehabilitation - Outpatient (Routine) - Authorized Specialty Diagnoses / Procedures Referred By Norma kennedy Referred To Contact Physical Therapy Diagnoses Cervical radiculopathy Unspecified injury of right ankle, subsequent encounter Procedures [place] OFFICE/OUTPATIENT NEW HIGH MDM 60 MINUTES Giovani Hagen MD 112 [facility] [address] [place] [address] Phone: tel: fax: Zhen Burgess, PT 112 [facility] [address] [place] [address] Phone: tel: fax: Referral ID Status Reason Start Date Expiration Date Visits Requested Visits Authorized [id number] Authorized Specialty Services Required 01/25/2024 10/21/2024 25 25 [facility] [place] for visit Narrative* Outpatient Procedure (Routine) - Closed Specialty Diagnoses / Procedures Referred By Contac t Referred To Contact [facility] Diagnoses Elevated LFTs Procedures DDI VIBRATION CONTROLLED TRANSIENT ELASTOGRAPHY (VCTE) LIVER ELASTOGRAPHY W/O IMAG W/I&R Iliana Mercado PA-C [address] [place] [address] [address] Referral ID Status Reason Start Date Expiration Date V isits Requested Visits Authorized [id number] Closed Auto-Generate d Referral 04/26/2024 04/26/2025 1 1 [facility] for visit Narrative* Outpatient Procedure (Routine) - Closed Specialty Diagnoses / Procedures Referred By Contac t Referred To Contact [facility] Diagnoses BRBPR (bright red blood per rectum) Procedures COLONOSCOPY DIAGNOSTIC COLONOSCOPY FLX DX W/COLLJ SPEC WHEN PFRMD Iliana Mercado PA-C [address] [place] [address] [address] Referral ID Status Reason Start Date Expiration Date V isits Requested Visits Authorized [id number] Closed Auto-Generate d Referral 04/26/2024 04/26/2025 1 1 [facility] for visit Narrative* Diagnostic Procedure Only (Routine) - Closed Specialty Diagnoses / Procedures Referred By Contac t Referred To Contact [facility] Diagnoses Other specified dyspareunia Pelvic pain in female Procedures PELVIC US WHI US PELVIC NONOBSTETRIC REAL-TIME IMAGE COMPLETE Javy Boudreaux MD [address] [address] Phone: tel: fax: [address] [address] Referral ID Status Reason Start Date Expiration Date V isits Requested Visits Authorized [id number] Closed Auto-Generate d Referral 07/10/2024 07/10/2025 1 1 [facility] for visit Narrative* Diagnostic Procedure Only (Routine) - Closed Specialty Diagnoses / Procedures Referred By Contac t Referred To Contact XR IMAGING Diagnoses Chronic idiopathic constipation Procedures XR ABDOMEN 2V ROUTINE SUPINE W UPRIGHT/DECUB/CTL RADIOLOGIC EXAM ABDOMEN 2 VIEWS Iliana Mercado PA-C [address] [place] [address] Phone: tel: fax: [place] [phone] Referral ID Status Reason Start Date Expiration Date V isits Requested Visits Authorized [id number] Closed Auto-Generate d Referral 07/09/2024 08/07/2025 1 1 [facility] for visit Narrative* Diagnostic Procedure Only (Routine) - Authorized Specialty Diagnoses / Procedures Referred By Contac t Referred To Contact XR IMAGING Diagnoses Pelvic floor dysfunction Chronic constipation Procedures XR ABDOMEN 1V SUPINE RADIOLOGIC EXAM ABDOMEN 1 VIEW Mario Harper, [employer] [address] [place] [address] Phone: tel: fax: [place] [phone] Referral ID Status Reason Start Date Expiration Date Visits Requested Visits Authorized [id number] Authorized Auto-Generat ed Referral 10/09/2024 11/08/2025 3 3 [facility] Summary Purpose Family History No [...] spine wo contrast Giovani Hagen MD [address] [address] Referral ID Status Reason Start Date Expiration Date V isits Requested Visits Authorized [id number] Pending Review 01/09/2024 07/07/2024 1 1 Specialty Diagnoses / Procedures Referred By Contac t Referred To Contact Diagnoses Attention deficit hyperactivity disorder (ADHD), predominantly inattentive type (CMS/HCC) Giovani Hagen MD [address] [address] Referral ID Status Reason Start Date Expiration Date Visits Re quested Visits Authorized [id number] Closed 1 1 Specialty Diagnoses / Procedures Referred By Contac t Referred To Contact Diagnoses Attention deficit hyperactivity disorder (ADHD), predominantly inattentive type (CMS/HCC) Giovani Hagen MD [address] [address] Referral ID Status Reason Start Date Expiration Date V isits Requested Visits Authorized [id number] Pending Review 01/08/2024 07/06/2024 1 1 Specialty Diagnoses / Procedures Referred By Contac t Referred To Contact [facility] [place] Diagnoses Syncope, unspecified syncope type Procedures CARDIOVASCULAR MEDICINE OP FOLLOW UP APPT ORDER Solo Mora MD [address] [place] [address] [facility] [address] [address] Referral ID Status Reason Start Date Expiration Date Visits Requested Visits Authorized [id number] Ref Not Required PCP Requested Referral 12/28/2023 12/27/2024 1 1 Specialty Diagnoses / Procedures Referred By Contac t Referred To Contact [facility] [place] Diagnoses Syncope, unspecified syncope type Procedures STRESS ECHO TREADMILL ECHO TTHRC R-T 2D W/WO M-MODE COMPLETE REST&ST Solo Mora MD [address] [place] [address] [address] Referral ID Status Reason Start Date Expiration Date Visits Requested Visits Authorized [id number] Authorized Auto-Generat ed Referral 12/19/2023 12/18/2024 1 1 Specialty Diagnoses / Procedures Referred By Norma t Referred To Contact CT IMAGING Diagnoses Bilious vomiting with nausea Right sided abdominal pain Nausea Procedures CT ABD/PEL WO IVCON CT ABD & PELVIS [place] [address] [place] [address] [place] [address] Referral ID Status Reason Start Date Expiration Date V isits Requested Visits Authorized [id number] Closed Auto-Generate d Referral 05/27/2022 06/26/2023 1 1 Additional Source Comments INFORMATION SOURCE (unrecogn ized section and content) DATE CREATED AUTHOR 11/09/2018 [facility] DATE CREATED AUTHOR AUTHOR'S ORGANIZ ATION 08/23/2021 [facility] dical Specialist DATE CREATED AUTHOR AUTHOR'S ORGANIZ ATION 07/17/2022 [facility] DATE CREATED AUTHOR AUTHOR'S ORGANIZ ATION 03/22/2023 [facility] DATE CREATED AUTHOR AUTHOR'S ORGANIZ ATION 03/28/2023 [facility] ospital DATE CREATED AUTHOR AUTHOR'S ORGANIZ ATION 04/07/2024 [facility] DATE CREATED AUTHOR AUTHOR'S ORGANIZ ATION 04/12/2024 [facility] DATE CREATED AUTHOR AUTHOR'S ORGANIZ ATION 09/26/2024 [facility] DATE CREATED AUTHOR AUTHOR'S ORGANIZ ATION 10/31/2024 [facility] DATE CREATED AUTHOR AUTHOR'S ORGANIZ ATION 12/31/2024 [facility] DATE CREATED AUTHOR AUTHOR'S ORGANIZ ATION 01/03/2025 [facility] DATE CREATED AUTHOR AUTHOR'S ORGANIZ ATION 01/07/2025 [facility] dical Specialists EPIC Care Teams (unrecognized sec tion and content) Team Status: Active Member Role Status Dates Giovani Hagen MD Primary Care Provider Active Team Status: Inactive Member Role Status Dates Erwin Hylton MD Attending Provider Active Giovani Hagen MD Primary Care Provider Active Director Digital Advertising Relationship Specialty Start Date End Date Giovani Hagen 112 [facility] 110 [place] [address] PCP - General Family Medicine 03/27/19 Director Digital Advertising Relationship Specialty Start Date End Date [place]Giovani mcclellan Mabalay [address] [place] [address] [place] [address] PCP - General Family Medicine 03/27/19 Director Digital Advertising Relationship Specialty Start Date End Date [place]Giovani mcclellan Mabalay [address] [place] [address] [place] [address] PCP - General Family Medicine 03/27/19 Director Digital Advertising Relationship Specialty Start Date End Date HieuKiran mcclellanen Mabalay [address] [place] [address] [place] [address] PCP - General Family Medicine 03/27/19 Director Digital Advertising Relationship Specialty Start Date End Date [place]Kiranen Mabalay [address] [place] [address] [place] [address] PCP - General Family Medicine 03/27/19 Director Digital Advertising Relationship Specialty Start Date End Date [place]Giovani mcclellan Mabalay [address] [place] [address] [place] [address] PCP - General Family Medicine 03/27/19 Director Digital Advertising Relationship Specialty Start Date End Date [place]ovani Mabal[place] [address] [place] [address] [place] [address] PCP - General Family Medicine 03/27/19 Director Digital Advertising Relationship Specialty Start Date End Date HieuKiranen Mabalay [address] [place] [address] [place] [address] PCP - General Family Medicine 03/27/19 Director Digital Advertising Relationship Specialty Start Date End Date [place]ir[place] Mabal[place] [address] [place] [address] [place] [address] PCP - General Family Medicine 03/27/19 Director Digital Advertising Relationship Specialty Start Date End Date [place]Kiranen Mabalay [address] [place] [address] [place] [address] PCP - General Family Medicine 03/27/19 Director Digital Advertising Relationship Specialty Start Date End Date Giovani Hagen [address] [place] [address] [place] [address] PCP - General Family Medicine 03/27/19 Director Digital Advertising Relationship Specialty Start Date End Date Giovani Hagen [address] [place] [address] [place] [address] PCP - General Family Medicine 03/27/19 Director Digital Advertising Relationship Specialty Start Date End Date Giovani Hagen [address] [place] [address] [place] [address] PCP - General Family Medicine 03/27/19 Director Digital Advertising Relationship Specialty Start Date End Date Giovani Hagen [address] [place] [address] [place] [address] PCP - General Family Medicine 03/27/19 Director Digital Advertising Relationship Specialty Start Date End Date Giovani Hagen MD [address] [place] [address] [place] [address] PCP - General Family Medicine 03/27/19 Director Digital Advertising Relationship Specialty Start Date End Date Giovani Hagen MD [address] [place] [address] [place] [address] PCP - General Family Medicine 03/27/19 Director Digital Advertising Relationship Specialty Start Date End Date Giovani Hagen MD [address] [place] [address] [place] [address] PCP - General Family Medicine 03/27/19 Director Digital Advertising Relationship Specialty Start Date End Date Giovani Hagen MD [address] [place] [address] [place] [address] PCP - General Family Medicine 03/27/19 Director Digital Advertising Relationship Specialty Start Date End Date Giovani Hagen MD [address] [place] [address] [place] [address] PCP - General Family Medicine 03/27/19 Director Digital Advertising Relationship Specialty Start Date End Date Giovani Hagen MD [address] [place] [address] [place] [address] PCP - General Family Medicine 03/27/19 Director Digital Advertising Relationship Specialty Start Date End Date Giovani Hagen MD [address] [place] [address] [place] [address] PCP - General Family Medicine 03/27/19 Director Digital Advertising Relationship Specialty Start Date End Date Giovani Hagen MD [address] [place] [address] [place] [address] PCP - General Family Medicine 03/27/19 Director Digital Advertising Relationship Specialty Start Date End Date Giovani Hagen MD [address] [place] [address] [place] [address] PCP - General Family Medicine 03/27/19 Director Digital Advertising Relationship Specialty Start Date End Date Giovani Hagen MD [address] [place] [address] [place] [address] PCP - General Family Medicine 03/27/19 Director Digital Advertising Relationship Specialty Start Date End Date Giovani Hagen MD [address] [place] [address] [place] [address] PCP - General Family Medicine 03/27/19 Director Digital Advertising Relationship Specialty Start Date End Date Giovani Hagen MD [address] [place] [address] [place] [address] PCP - General Family Medicine 03/27/19 Director Digital Advertising Relationship Specialty Start Date End Date Giovani Hagen MD [address] [place] [address] [place] [address] PCP - General Family Medicine 03/27/19 Director Digital Advertising Relationship Specialty Start Date End Date Giovani Hagen MD [address] [place] [address] [place] [address] PCP - Medical [place] [facility] 10/22/18 04/23/99 Giovani Hagen MD [address] [facility] [address] [place] [address] PCP - General [facility] Medicine 08/30/22 Director Digital Advertising Relationship Specialty Start Date End Date Giovani Hagen MD [address] [facility] [address] [place] [address] PCP - Medical [place] [facility] 10/22/18 04/23/99 Giovani Hagen MD [address] [place] [address] [place] [address] PCP - General [facility] Medicine 08/30/22 Director Digital Advertising Relationship Specialty Start Date End Date Giovani Hagen MD [address] [place] [address] [place] [address] PCP - Medical [place] [employer] 10/22/18 04/23/99 Giovani Hagen MD [address] [place] [address] [place] [address] PCP - General Family Medicine 08/30/22 Director Digital Advertising Relationship Specialty Start Date End Date Giovani Hagen MD [address] [place] [address] [place] [address] PCP - Medical [place] [employer] 10/22/18 04/23/99 Giovani Hagen MD [address] [place] [address] [place] [address] PCP - General Family Medicine 08/30/22 Director Digital Advertising Relationship Specialty Start Date End Date Giovani Hagen MD [address] [place] [address] [place] [address] PCP - Medical [place] [facility] 10/22/18 04/23/99 Giovani Hagen MD [address] [place] [address] [place] [address] PCP - General Family Medicine 08/30/22 Director Digital Advertising Relationship Specialty Start Date End Date Giovani Hagen MD [address] [place] [address] [place] [address] PCP - Medical [place] [employer] 10/22/18 04/23/99 Giovani Hagen MD [address] [place] [address] [place] [address] PCP - General Family Medicine 08/30/22 Director Digital Advertising Relationship Specialty Start Date End Date Giovani Hagen MD [address] [place] [address] [place] [address] PCP - Medical [place] [facility] 10/22/18 04/23/99 Giovani Hagen MD [address] [place] [address] [place] [address] PCP - General Family Medicine 08/30/22 Director Digital Advertising Relationship Specialty Start Date End Date Giovani Hagen MD [address] [place] [address] [place] [address] PCP - Medical [place] [facility] 10/22/18 04/23/99 Giovani Hagen MD [address] [place] [address] [place] [address] PCP - General Family Medicine 08/30/22 Director Digital Advertising Relationship Specialty Start Date End Date Giovani Hagen MD [address] [place] [address] [place] [address] PCP - Medical [place] [facility] 10/22/18 04/23/99 Giovani Hagen MD [address] [place] [address] [place] [address] PCP - General Family Medicine 08/30/22 Director Digital Advertising Relationship Specialty Start Date End Date Giovani Hagen MD [address] [place] [address] [place] [address] PCP - Medical [place] [facility] 10/22/18 04/23/99 Giovani Hagen MD [address] [place] [address] [place] [address] PCP - General Family Medicine 08/30/22 Director Digital Advertising Relationship Specialty Start Date End Date Giovani Hagen MD [address] [place] [address] [place] [address] PCP - Medical [place] [facility] 10/22/18 04/23/99 Giovani Hagen MD [address] [place] [address] [place] [address] PCP - General Family Medicine 08/30/22 Director Digital Advertising Relationship Specialty Start Date End Date Giovani Hagen MD [address] [place] [address] [place] [address] PCP - Medical [place] [facility] 10/22/18 04/23/99 Giovani Hagen MD [address] [place] [address] [place] [address] PCP - General Family Medicine 08/30/22 Director Digital Advertising Relationship Specialty Start Date End Date Giovani Hagen MD [address] [place] [address] [place] [address] PCP - Medical [place] [facility] 10/22/18 04/23/99 Giovani Hagen MD [address] [place] [address] [place] [address] PCP - General Family Medicine 08/30/22 Director Digital Advertising Relationship Specialty Start Date End Date Giovani Hagen MD [address] [place] [address] [place] [address] PCP - Medical [place] [facility] 10/22/18 04/23/99 Giovani Hagen MD [address] [place] [address] [place] [address] PCP - General Family Medicine 08/30/22 Director Digital Advertising Relationship Specialty Start Date End Date Giovani Hagen MD [address] [place] [address] [place] [address] PCP - Medical [place] [facility] 10/22/18 04/23/99 Giovani Hagen MD [address] [place] [address] [place] [address] PCP - General Family Medicine 08/30/22 Director Digital Advertising Relationship Specialty Start Date End Date Giovani Hagen MD [address] [place] [address] [place] [address] PCP - Medical [place] [facility] 10/22/18 04/23/99 Giovani Hagen MD [address] [place] [address] [place] [address] PCP - General Family Medicine 08/30/22 Director Digital Advertising Relationship Specialty Start Date End Date Giovani Hagen MD [address] [place] [address] [place] [address] PCP - Medical [facility] 10/22/18 04/23/99 Giovani Hagen MD [address] [place] [address] [place] [address] PCP - General Family Medicine 08/30/22 Director Digital Advertising Relationship Specialty Start Date End Date Giovani Hagen MD [address] [place] [address] [place] [address] PCP - Medical [facility] [employer] 10/22/18 04/23/99 Giovani Hagen MD [address] [place] [address] [place] [address] PCP - General Family Medicine 08/30/22 Director Digital Advertising Relationship Specialty Start Date End Date Giovani Hagen MD [address] [place] [address] [place] [address] PCP - Medical [facility] 10/22/18 04/23/99 Giovani Hagen MD [address] [place] [address] [place] [address] PCP - General Family Medicine 08/30/22 Director Digital Advertising Relationship Specialty Start Date End Date Giovani Hagen MD [address] [place] [address] [place] [address] PCP - Medical [facility] [employer] 10/22/18 04/23/99 Giovani Hagen MD [address] [place] [address] [place] [address] PCP - General Family Medicine 08/30/22 Director Digital Advertising Relationship Specialty Start Date End Date Giovani Hagen MD [address] [place] [address] [place] [address] PCP - Medical [facility] [employer] 10/22/18 04/23/99 Giovani Hagen MD [address] [place] [address] [place] [address] PCP - General Family Medicine 08/30/22 Director Digital Advertising Relationship Specialty Start Date End Date Giovani Hagen MD [address] [place] [address] [place] [address] PCP - Medical [facility] [employer] 10/22/18 04/23/99 Giovani Hagen MD [address] [place] [address] [place] [address] PCP - General Family Medicine 08/30/22 Director Digital Advertising Relationship Specialty Start Date End Date Giovani Hagen MD [address] [place] [address] [place] [address] PCP - Medical [facility] [employer] 10/22/18 04/23/99 Giovani Hagen MD [address] [place] [address] [place] [address] PCP - General Family Medicine 08/30/22 Director Digital Advertising Relationship Specialty Start Date End Date Giovani Hagen MD [address] [place] [address] [place] [address] PCP - Medical [facility] [employer] 10/22/18 04/23/99 Giovani Hagen MD [address] [place] [address] [place] [address] PCP - General Family Medicine 08/30/22 Director Digital Advertising Relationship Specialty Start Date End Date Giovani Hagen MD [address] [place] [address] [place] [address] PCP - General Family Medicine 03/27/19 Director Digital Advertising Relationship Specialty Start Date End Date Giovani Hagen MD [address] [place] [address] [place] [address] PCP - Medical [facility] [employer] 10/22/18 04/23/99 Giovani Hagen MD [address] [place] [address] [place] [address] PCP - General Family Medicine 08/30/22 Director Digital Advertising Relationship Specialty Start Date End Date Giovani Hagen MD [address] [place] [address] [place] [address] PCP - General Family Medicine 03/27/19 Deena Lyn CNP [address] [place] [address] [place] [address] [facility] Family Medicine 04/03/24 Director Digital Advertising Relationship Specialty Start Date End Date Giovani Hagen MD [address] [place] [address] [place] [address] PCP - General Family Medicine 03/27/19 Deena Lyn CNP [address] [facility] [address] [place] [address] [facility] Family Medicine 04/03/24 Director Digital Advertising Relationship Specialty Start Date End Date Giovani Hagen MD [address] [facility] [address] [place] [address] PCP - Medical [facility] [employer] 10/22/18 04/23/99 Giovani Hagen MD [address] [facility] [address] [place] [address] PCP - General Family Medicine 08/30/22 Director Digital Advertising Relationship Specialty Start Date End Date Giovani Hagen MD [address] [facility] [place] [address] PCP - Medical [facility] [employer] 10/22/18 04/23/99 Giovani Hagen MD [address] [facility] [place] [address] PCP - General Family Medicine 08/30/22 Director Digital Advertising Relationship Specialty Start Date End Date Giovani Hagen MD [address] [facility] [place] [address] PCP - Medical [facility] [employer] 10/22/18 04/23/99 Giovani Hagen MD [address] [facility] [place] [address] PCP - General Family Medicine 08/30/22 Director Digital Advertising Relationship Specialty Start Date End Date Giovani Hagen MD [address] [facility] [address] [place] [address] PCP - Medical [facility] [employer] 10/22/18 04/23/99 Giovani Hagen MD [address] [facility] [address] [place] [address] PCP - General Family Medicine 08/30/22 Director Digital Advertising Relationship Specialty Start Date End Date Giovani Hagen MD [address] [place] [address] [place] [address] PCP - Medical [facility] [employer] 10/22/18 04/23/99 Giovani Hagen MD [address] [facility] [address] [place] [address] PCP - General Family Medicine 08/30/22 Director Digital Advertising Relationship Specialty Start Date End Date Giovani Hagen MD [address] [facility] [address] [place] [address] PCP - Medical [facility] [employer] 10/22/18 04/23/99 Giovani Hagen MD [address] [facility] [address] [place] [address] PCP - General Family Medicine 08/30/22 Director Digital Advertising Relationship Specialty Start Date End Date Giovani Hagen MD [address] [facility] [address] [place] [address] PCP - Medical [facility] [employer] 10/22/18 04/23/99 Giovani Hagen MD [address] [facility] [address] [place] [address] PCP - General Family Medicine 08/30/22 Director Digital Advertising Relationship Specialty Start Date End Date Giovani Hagen MD [address] [facility] [address] [place] [address] PCP - General Family Medicine 03/27/19 Deena Lyn CNP [address] [place] [address] [place] [address] [facility] Family Medicine 04/03/24 Director Digital Advertising Relationship Specialty Start Date End Date Giovani Hagen MD [address] [place] [address] [place] [address] PCP - Medical [facility] [employer] 10/22/18 04/23/99 Giovani Hagen MD [address] [facility] [address] [place] [address] PCP - General Family Medicine 08/30/22 Director Digital Advertising Relationship Specialty Start Date End Date Giovani Hagen MD [address] [facility] [address] [place] [address] PCP - Medical [facility] 10/22/18 04/23/99 Giovani Hagen MD [address] [facility] [address] [place] [address] PCP - General [facility] Medicine 08/30/22 Director Digital Advertising Relationship Specialty Start Date End Date Giovani Hagen MD [address] [facility] [address] [place] [address] PCP - Medical [facility] 10/22/18 04/23/99 Giovani Hagen MD [address] [facility] [address] [place] [address] PCP - General Family Medicine 08/30/22 Director Digital Advertising Relationship Specialty Start Date End Date Giovani Hagen MD [address] [facility] [address] [place] [address] PCP - General Family Medicine 03/27/19 Deena Lyn, TEACHERS AIDE [address] [place] [address] [place] [address] Referring Family Medicine 04/03/24 Director Digital Advertising Relationship Specialty Start Date End Date Giovani Hagen MD [address] [place] [address] [place] [address] PCP - General Family Medicine 03/27/19 Deena Lyn, TEACHERS AIDE [address] [place] [address] [place] [address] Referring Family Medicine 04/03/24 Director Digital Advertising Relationship Specialty Start Date End Date Giovani Hagen MD [address] [place] [address] [place] [address] PCP - General Family Medicine 03/27/19 Deena Lyn, TEACHERS AIDE [address] [place] [address] [place] [address] Referring Family Medicine 04/03/24 Director Digital Advertising Relationship Specialty Start Date End Date Giovani Hagen MD [address] [place] [address] [place] [address] PCP - Medical [facility] [employer] 10/22/18 04/23/99 Giovani Hagen MD [address] [place] [address] [place] [address] PCP - General Family Medicine 08/30/22 Director Digital Advertising Relationship Specialty Start Date End Date Giovani Hagen MD [address] [place] [address] [place] [address] PCP - Medical [facility] [employer] 10/22/18 04/23/99 Giovani Hagen MD [address] [place] [address] [place] [address] PCP - General Family Medicine 08/30/22 Director Digital Advertising Relationship Specialty Start Date End Date Giovani Hagen MD [address] [place] [address] [place] [address] PCP - General Family Medicine 03/27/19 Deena Lyn, ISABEL [address] [place] [address] [place] [address] Referring Family Medicine 04/03/24 Director Digital Advertising Relationship Specialty Start Date End Date Giovani Hagen MD [address] [place] [address] [place] [address] PCP - General Family Medicine 03/27/19 Deena Lyn, TEACHERS AIDE [address] [place] [address] [place] [address] Referring Family Medicine 04/03/24 Director Digital Advertising Relationship Specialty Start Date End Date Giovani Hagen MD [address] [place] [address] [place] [address] PCP - Medical [facility] 10/22/18 04/23/99 Giovani Hagen MD [address] [place] [address] [place] [address] PCP - General Family Medicine 08/30/22 Director Digital Advertising Relationship Specialty Start Date End Date Giovani Hagen MD [address] [place] [address] [place] [address] PCP - Medical [facility] 10/22/18 04/23/99 Giovani Hagen MD [address] [place] [address] [place] [address] PCP - General Family Medicine 08/30/22 Director Digital Advertising Relationship Specialty Start Date End Date Giovani Hagen MD [address] [place] [address] [place] [address] PCP - General Family Medicine 03/27/19 Deena Lyn, ISABEL [address] [place] [address] [place] [address] Referring Family Medicine 04/03/24 Director Digital Advertising Relationship Specialty Start Date End Date Giovani Hagen MD [address] [place] [address] [place] [address] PCP - Medical [facility] 10/22/18 04/23/99 Giovani Hagen MD [address] [facility] [address] [place] [address] PCP - General Family Medicine 08/30/22 Director Digital Advertising Relationship Specialty Start Date End Date Giovani Hagen MD [address] [place] [address] [place] [address] PCP - Medical [facility] 10/22/18 04/23/99 Giovani Hagen MD [address] [place] [address] [place] [address] PCP - General Family Medicine 08/30/22 Director Digital Advertising Relationship Specialty Start Date End Date Giovani Hagen MD [address] [place] [address] [place] [address] PCP - General Family Medicine 03/27/19 Deena Lyn, ISABEL [address] [place] [address] [place] [address] Referring Family Medicine 04/03/24 Director Digital Advertising Relationship Specialty Start Date End Date Giovani Hagen MD [address] [place] [address] [place] [address] PCP - General Family Medicine 03/27/19 Deena Lyn CNP [address] [place] [address] [place] [address] Referring Family Medicine 04/03/24 Director Digital Advertising Relationship Specialty Start Date End Date Giovani Hagen MD [address] [place] [address] [place] [address] PCP - Medical [facility] [employer] 10/22/18 04/23/99 Giovani Hagen MD [address] [place] [address] [place] [address] PCP - General Family Medicine 08/30/22 Director Digital Advertising Relationship Specialty Start Date End Date Giovani Hagen MD [address] [place] [address] [place] [address] PCP - Medical [facility] [employer] 10/22/18 04/23/99 Giovani Hagen MD [address] [place] [address] [place] [address] PCP - General Family Medicine 08/30/22 Director Digital Advertising Relationship Specialty Start Date End Date Giovani Hagen MD [address] [place] [address] [place] [address] PCP - Medical [facility] [employer] 10/22/18 04/23/99 Giovani Hagen MD [address] [place] [address] [place] [address] PCP - General Family Medicine 08/30/22 Director Digital Advertising Relationship Specialty Start Date End Date Giovani Hagen MD [address] [place] [address] [place] [address] PCP - Medical [facility] [employer] 10/22/18 04/23/99 Giovani Hagen MD [address] [place] [address] [place] [address] PCP - General Family Medicine 08/30/22 Director Digital Advertising Relationship Specialty Start Date End Date Giovani Hagen MD [address] [place] [address] [place] [address] PCP - Medical [facility] [employer] 10/22/18 04/23/99 Giovani Hagen MD [address] [place] [address] [place] [address] PCP - General Family Medicine 08/30/22 Director Digital Advertising Relationship Specialty Start Date End Date Giovani Hagen MD [address] [place] [address] [place] [address] PCP - Medical [facility] 10/22/18 04/23/99 Giovani Hagen MD [address] [place] [address] [place] [address] PCP - General Family Medicine 08/30/22 Director Digital Advertising Relationship Specialty Start Date End Date Giovani Hagen MD [address] [place] [address] [place] [address] PCP - Medical [facility] 10/22/18 04/23/99 Giovani Hagen MD [address] [place] [address] [place] [address] PCP - General Family Medicine 08/30/22 Director Digital Advertising Relationship Specialty Start Date End Date Giovani Hagen MD [address] [place] [address] [place] [address] PCP - Medical [facility] 10/22/18 04/23/99 Giovani Hagen MD [address] [place] [address] [place] [address] PCP - General Family Medicine 08/30/22 Director Digital Advertising Relationship Specialty Start Date End Date Giovani Hagen MD [address] [place] [address] [place] [address] PCP - General Family Medicine 03/27/19 Deena Lyn, ISABEL [address] [place] [address] [place] [address] Referring Family Medicine 04/03/24 Darwin Starr DO [address] [place] [address] Referring Kitchen Steward/Stewardess 07/02/24 Director Digital Advertising Relationship Specialty Start Date End Date Giovani Hagen MD [address] [place] [address] [place] [address] PCP - General Family Medicine 03/27/19 Deena Lyn, ISABEL [address] [place] [address] [place] [address] Referring Family Medicine 04/03/24 Darwin Starr DO [address] [place] [address] Referring Kitchen Steward/Stewardess 07/02/24 Director Digital Advertising Relationship Specialty Start Date End Date Giovani Hagen MD [address] [place] [address] [place] [address] PCP - Medical [facility] [employer] 10/22/18 04/23/99 Giovani Hagen MD [address] [place] [address] [place] [address] PCP - General Family Medicine 08/30/22 Director Digital Advertising Relationship Specialty Start Date End Date Giovani Hagen MD [address] [place] [address] [place] [address] PCP - Medical [facility] 10/22/18 04/23/99 Giovani Hagen MD [address] [facility] [address] [place] [address] PCP - General Family Medicine 08/30/22 Director Digital Advertising Relationship Specialty Start Date End Date Giovani Hagen MD [address] [facility] [address] [place] [address] PCP - Medical [facility] [employer] 10/22/18 04/23/99 Giovani Hagen MD [address] [place] [address] [place] [address] PCP - General Family Medicine 08/30/22 Director Digital Advertising Relationship Specialty Start Date End Date Giovani Hagen MD [address] [place] [address] [place] [address] PCP - Medical [facility] 10/22/18 04/23/99 Giovani Hagen MD [address] [place] [address] [place] [address] PCP - General Family Medicine 08/30/22 Director Digital Advertising Relationship Specialty Start Date End Date Giovani Hagen MD [address] [facility] [address] [place] [address] PCP - Medical [facility] 10/22/18 04/23/99 Giovani Hagen MD [address] [facility] [address] [place] [address] PCP - General Family Medicine 08/30/22 Team [...] Other Provider Active Start: August 17, 2024 Director Digital Advertising Relationship Specialty Start Date End Date Giovani Hagen MD [address] [facility] [address] [place] [address] PCP - Medical [facility] [employer] 10/22/18 04/23/99 Giovani Hagen MD [address] [facility] [address] [place] [address] PCP - [facility] Family Medicine 08/30/22 Director Digital Advertising Relationship Specialty Start Date End Date Giovani Hagen MD [address] [facility] [address] [place] [address] PCP - Medical [facility] [employer] 10/22/18 04/23/99 Giovani Hagen MD [address] [facility] [address] [place] [address] PCP - General Family Medicine 08/30/22 Director Digital Advertising Relationship Specialty Start Date End Date Giovani Hagen MD [address] [facility] [address] [place] [address] PCP - General Family Medicine 03/27/19 Deena Lyn, ISABEL [address] [facility] [address] [place] [address] Referring Family Medicine 04/03/24 Darwin Starr DO [address] [place] [address] [place] [address] Referring Kitchen Steward/Stewardess 07/02/24 Director Digital Advertising Relationship Specialty Start Date End Date Giovani Hgaen MD [address] [facility] [address] [place] [address] PCP - Medical [facility] [employer] 10/22/18 04/23/99 Giovani Hagen MD [address] [facility] [address] [place] [address] PCP - General Family Medicine 08/30/22 Director Digital Advertising Relationship Specialty Start Date End Date Giovani Hagen MD [address] [facility] [address] [place] [address] PCP - Medical [facility] [employer] 10/22/18 04/23/99 Giovani Hagen MD [address] [facility] [address] [place] [address] PCP - General Family Medicine 08/30/22 Director Digital Advertising Relationship Specialty Start Date End Date Giovani Hagen MD [address] [facility] [address] [place] [address] PCP - Medical [facility] 10/22/18 04/23/99 Giovani Hagen MD [address] [place] [address] [place] [address] PCP - General Family Medicine 08/30/22 Director Digital Advertising Relationship Specialty Start Date End Date Giovani Hagen MD [address] [place] [address] [place] [address] PCP - Medical [facility] [employer] 10/22/18 04/23/99 Giovani Hagen MD [address] [place] [address] [place] [address] PCP - General Family Medicine 08/30/22 Director Digital Advertising Relationship Specialty Start Date End Date Giovani Hagen MD [address] [place] [address] [place] [address] PCP - General Family Medicine 03/27/19 Deena Lyn, ISABEL [address] [place] [address] [place] [address] Referring Family Medicine 04/03/24 Darwin Starr DO [address] [place] [address] [place] [address] Referring Kitchen Steward/Stewardess 07/02/24 Director Digital Advertising Relationship Specialty Start Date End Date Giovani Hagen MD [address] [place] [address] [place] [address] PCP - Medical [facility] [employer] 10/22/18 04/23/99 Giovani Hagen MD [address] [place] [address] [place] [address] PCP - General Family Medicine 08/30/22 Director Digital Advertising Relationship Specialty Start Date End Date Giovani Hagen MD [address] [place] [address] [place] [address] PCP - Medical [facility] [employer] 10/22/18 04/23/99 Giovani Hagen MD [address] [place] [address] [place] [address] PCP - General Family Medicine 08/30/22 Director Digital Advertising Relationship Specialty Start Date End Date Giovani Hagen MD [address] [place] [address] [place] [address] PCP - General Family Medicine 03/27/19 Deena Lyn CNP [address] [place] [address] [place] [address] Referring Family Medicine 04/03/24 Darwin Starr DO [address] [place] [address] [place] [address] Referring Kitchen Steward/Stewardess 07/02/24 Director Digital Advertising Relationship Specialty Start Date End Date Giovani Hagen MD [address] [place] [address] [place] [address] PCP - Medical [facility] [employer] 10/22/18 04/23/99 Giovani Hagen MD [address] [place] [address] [place] [address] PCP - General Family Medicine 08/30/22 Director Digital Advertising Relationship Specialty Start Date End Date Giovani Hagen MD [address] [place] [address] [place] [address] PCP - Medical [facility] [employer] 10/22/18 04/23/99 Giovani Hagen MD [address] [place] [address] [place] [address] PCP - General Family Medicine 08/30/22 Director Digital Advertising Relationship Specialty Start Date End Date Giovani Hagen MD [address] [facility] [address] [place] [address] PCP - Medical [facility] [employer] 10/22/18 04/23/99 Giovani Hagen MD [address] [facility] [address] [place] [address] PCP - General Family Medicine 08/30/22 Director Digital Advertising Relationship Specialty Start Date End Date Giovani Hagen MD [address] [facility] [address] [place] [address] PCP - General Family Medicine 03/27/19 Deena Lyn CNP [address] [facility] [address] [place] [address] Referring Family Medicine 04/03/24 Darwin Starr DO [address] [place] [address] [place] [address] Referring Kitchen Steward/Stewardess 07/02/24 Director Digital Advertising Relationship Specialty Start Date End Date Giovani Hagen MD [address] [facility] [address] [place] [address] PCP - Medical [facility] [employer] 10/22/18 04/23/99 Giovani Hagen MD [address] [facility] [address] [place] [address] PCP - General Family Medicine 08/30/22 Director Digital Advertising Relationship Specialty Start Date End Date Giovani Hagen MD [address] [facility] [address] [place] [address] PCP - Medical [facility] [employer] 10/22/18 04/23/99 Giovani Hagen MD [address] [place] [address] [place] [address] PCP - General Family Medicine 08/30/22 Director Digital Advertising Relationship Specialty Start Date End Date Giovani Hagen MD [address] [place] [address] [place] [address] PCP - General Family Medicine 03/27/19 Deena Lyn, TEACHERS AIDE [address] [place] [address] [place] [address] Referring Family Medicine 04/03/24 Darwin Starr DO [address] [place], [place] [address] [address] Referring Kitchen Steward/Stewardess 07/02/24 Director Digital Advertising Relationship Specialty Start Date End Date Giovani Hagen MD [address] [place] [address] [place] [address] PCP - General Family Medicine 03/27/19 Deena Lyn, TEACHERS AIDE [address] [place] [address] [place] [address] Referring Family Medicine 04/03/24 Darwin Starr DO [address] [place], [place] [address] [address] Referring Kitchen Steward/Stewardess 07/02/24 Director Digital Advertising Relationship Specialty Start Date End Date Giovani Hagen MD [address] [place] [address] [place] [address] PCP - Medical [facility] 10/22/18 04/23/99 Giovani Hagen MD [address] [place] [address] [place] [address] PCP - General Family Medicine 08/30/22 Director Digital Advertising Relationship Specialty Start Date End Date Giovani Hagen MD [address] [place] [address] [place] [address] PCP - General Family Medicine 03/27/19 Deena Lyn, TEACHERS AIDE [address] [place] [address] [place] [address] Referring Family Medicine 04/03/24 Darwin Starr, DO [address] [place] [address] Referring Kitchen Steward/Stewardess 07/02/24 Director Digital Advertising Relationship Specialty Start Date End Date Giovani Hagen MD [address] [place] [address] [place] [address] PCP - General Family Medicine 03/27/19 Deena Lyn, TEACHERS AIDE [address] [place] [address] [place] [address] Referring Family Medicine 04/03/24 Darwin Starr, DO [address] [place] [address] Referring Kitchen Steward/Stewardess 07/02/24 Director Digital Advertising Relationship Specialty Start Date End Date Giovani Hagen MD [address] [place] [address] [place] [address] PCP - Medical [facility] 10/22/18 04/23/99 Giovani Hagen MD [address] [place] [address] [place] [address] PCP - General Family Medicine 08/30/22 Director Digital Advertising Relationship Specialty Start Date End Date Giovani Hagen MD [address] [place] [address] [place] [address] PCP - Medical [facility] 10/22/18 04/23/99 Giovani Hagen MD [address] [place] [address] [place] [address] PCP - General Family Medicine 08/30/22 Director Digital Advertising Relationship Specialty Start Date End Date Giovani Hagen MD [address] [address] [place] [address] PCP - Medical [place] [employer] 10/22/18 04/23/99 Giovani Hagen MD [address] [place] [address] PCP - General Family Medicine 08/30/22 Director Digital Advertising Relationship Specialty Start Date End Date Giovani Hagen MD [address] [place] [address] PCP - Medical [place] [employer] 10/22/18 04/23/99 Giovani Hagen MD [address] [place] [address] PCP - General Family Medicine 08/30/22 Director Digital Advertising Relationship Specialty Start Date End Date Giovani Hagen MD [address] [place] [address] PCP - Medical [place] [employer] 10/22/18 04/23/99 Giovani Hagen MD [address] [place] [address] PCP - General Family Medicine 08/30/22 Director Digital Advertising Relationship Specialty Start Date End Date Giovani Hagen MD [address] [place] [address] PCP - Medical [place] [employer] 10/22/18 04/23/99 Giovani Hagen MD [address] [place] [address] PCP - General Family Medicine 08/30/22 Director Digital Advertising Relationship Specialty Start Date End Date Giovani Hagen MD [address] [place] [address] PCP - Medical [place] [employer] 10/22/18 04/23/99 Giovani Hagen MD [address] [place] [address] PCP - General Family Medicine 08/30/22 Director Digital Advertising Relationship Specialty Start Date End Date Giovani Hagen MD [address] [place] [address] PCP - Medical [place] [employer] 10/22/18 04/23/99 Giovani Hagen MD [address] [place] [address] PCP - General Family Medicine 08/30/22 Director Digital Advertising Relationship Specialty Start Date End Date Giovani Hagen MD [address] [place] [address] PCP - Medical [place] [employer] 10/22/18 04/23/99 Giovani Hagen MD [address] [place] [address] PCP - General Family Medicine 08/30/22 Director Digital Advertising Relationship Specialty Start Date End Date Giovani Hagen MD [address] [place] [address] PCP - Medical [place] [employer] 10/22/18 04/23/99 Giovani Hagen MD [address] [place] [address] PCP - General Family Medicine 08/30/22 Director Digital Advertising Relationship Specialty Start Date End Date Giovani Hagen MD [address] [place] [address] PCP - General Family Medicine 03/27/19 Deena Lyn, [employer] [address] [place] [address] Referring Family Medicine 04/03/24 Darwin Starr DO [address] [place] [address] [place] [address] Referring Kitchen Steward/Stewardess 07/02/24 Director Digital Advertising Relationship Specialty Start Date End Date Giovani Hagen MD [address] [place] [address] PCP - Medical [place] [employer] 10/22/18 04/23/99 Giovani Hagen MD [address] [place] [address] PCP - General Family Medicine 08/30/22 Director Digital Advertising Relationship Specialty Start Date End Date Giovani Hagen MD [address] [facility] [address] [place] [address] PCP - General Family Medicine 03/27/19 Deena Lyn APRN [address] [facility] [address] [place] [address] Referring Family Medicine 04/03/24 Darwin Starr DO [address] [place] [address] [place] [address] Referring Kitchen Steward/Stewardess 07/02/24 Source Comments (unrecognize d section and content) In the event this informatio n is protected by the Federal Confidentiality of Alcohol and Drug Abuse Patient Records regulations: The Federal rules restrict any use of the information to criminally investigate or prosecute any alcohol or drug abuse patient.[facility] Center[facility] the event this information is protected by the Federal Confidentiality of Alcohol and Drug Abuse Patient Records regulations: The Federal rules restrict any use of the information to criminally investigate or prosecute any alcohol or drug abuse patient.[facility] CenterIn the event this information is protected by the Federal Confidentiality of Alcohol and Drug Abuse Patient Records regulations: The Federal rules restrict any use of the information to criminally investigate or prosecute any alcohol or drug abuse patient.[facility] CenterIn the event this information is protected by the Federal Confidentiality of Alcohol and Drug Abuse Patient Records regulations: The Federal rules restrict any use of the information to criminally investigate or prosecute any alcohol or drug abuse patient.[facility] CenterIn the event this information is protected by the Federal Confidentiality of Alcohol and Drug Abuse Patient Records regulations: The Federal rules restrict any use of the information to criminally investigate or prosecute any alcohol or drug abuse patient.[facility] CenterIn the event this information is protected by the Federal Confidentiality of Alcohol and Drug Abuse Patient Records regulations: The Federal rules restrict any use of the information to criminally investigate or prosecute any alcohol or drug abuse patient.[facility] CenterIn the event this information is protected by the Federal Confidentiality of Alcohol and Drug Abuse Patient Records regulations: The Federal rules restrict any use of the information to criminally investigate or prosecute any alcohol or drug abuse patient.[facility] CenterIn the event this information is protected by the Federal Confidentiality of Alcohol and Drug Abuse Patient Records regulations: The Federal rules restrict any use of the information to criminally investigate or prosecute any alcohol or drug abuse patient.[facility] CenterIn the event this information is protected by the Federal Confidentiality of Alcohol and Drug Abuse Patient Records regulations: The Federal rules restrict any use of the information to criminally investigate or prosecute any alcohol or drug abuse patient.[facility] CenterIn the event this information is protected by the Federal Confidentiality of Alcohol and Drug Abuse Patient Records regulations: The Federal rules restrict any use of the information to criminally investigate or prosecute any alcohol or drug abuse patient.[facility] CenterIn the event this information is protected by the Federal Confidentiality of Alcohol and Drug Abuse Patient Records regulations: The Federal rules restrict any use of the information to criminally investigate or prosecute any alcohol or drug abuse patient.[facility] CenterIn the event this information is protected by the Federal Confidentiality of Alcohol and Drug Abuse Patient Records regulations: The Federal rules restrict any use of the information to criminally investigate or prosecute any alcohol or drug abuse patient.[facility] CenterIn the event this information is protected by the Federal Confidentiality of Alcohol and Drug Abuse Patient Records regulations: The Federal rules restrict any use of the information to criminally investigate or prosecute any alcohol or drug abuse patient.[facility] CenterIn the event this information is protected by the Federal Confidentiality of Alcohol and Drug Abuse Patient Records regulations: The Federal rules restrict any use of the information to criminally investigate or prosecute any alcohol or drug abuse patient.[facility] CenterIn the event this information is protected by the Federal Confidentiality of Alcohol and Drug Abuse Patient Records regulations: The Federal rules restrict any use of the information to criminally investigate or prosecute any alcohol or drug abuse patient.[facility] CenterIn the event this information is protected by the Federal Confidentiality of Alcohol and Drug Abuse Patient Records regulations: The Federal rules restrict any use of the information to criminally investigate or prosecute any alcohol or drug abuse patient.[facility] CenterIn the event this information is protected by the Federal Confidentiality of Alcohol and Drug Abuse Patient Records regulations: The Federal rules restrict any use of the information to criminally investigate or prosecute any alcohol or drug abuse patient.[facility] CenterIn the event this information is protected by the Federal Confidentiality of Alcohol and Drug Abuse Patient Records regulations: The Federal rules restrict any use of the information to criminally investigate or prosecute any alcohol or drug abuse patient.[facility] CenterIn the event this information is protected by the Federal Confidentiality of Alcohol and Drug Abuse Patient Records regulations: The Federal rules restrict any use of the information to criminally investigate or prosecute any alcohol or drug abuse patient.[facility] CenterIn the event this information is protected by the Federal Confidentiality of Alcohol and Drug Abuse Patient Records regulations: The Federal rules restrict any use of the information to criminally investigate or prosecute any alcohol or drug abuse patient.[facility] CenterIn the event this information is protected by the Federal Confidentiality of Alcohol and Drug Abuse Patient Records regulations: The Federal rules restrict any use of the information to criminally investigate or prosecute any alcohol or drug abuse patient.[facility] CenterIn the event this information is protected by the Federal Confidentiality of Alcohol and Drug Abuse Patient Records regulations: The Federal rules restrict any use of the information to criminally investigate or prosecute any alcohol or drug abuse patient.[facility] CenterIn the event this information is protected by the Federal Confidentiality of Alcohol and Drug Abuse Patient Records regulations: The Federal rules restrict any use of the information to criminally investigate or prosecute any alcohol or drug abuse patient.[facility] CenterIn the event this information is protected by the Federal Confidentiality of Alcohol and Drug Abuse Patient Records regulations: The Federal rules restrict any use of the information to criminally investigate or prosecute any alcohol or drug abuse patient.[facility] CenterIn the event this information is protected by the Federal Confidentiality of Alcohol and Drug Abuse Patient Records regulations: The Federal rules restrict any use of the information to criminally investigate or prosecute any alcohol or drug abuse patient.[facility] CenterIn the event this information is protected by the Federal Confidentiality of Alcohol and Drug Abuse Patient Records regulations: The Federal rules restrict any use of the information to criminally investigate or prosecute any alcohol or drug abuse patient.[facility] CenterIn the event this information is protected by the Federal Confidentiality of Alcohol and Drug Abuse Patient Records regulations: The Federal rules restrict any use of the information to criminally investigate or prosecute any alcohol or drug abuse patient.[facility] CenterIn the event this information is protected by the Federal Confidentiality of Alcohol and Drug Abuse Patient Records regulations: The Federal rules restrict any use of the information to criminally investigate or prosecute any alcohol or drug abuse patient.[facility] CenterIn the event this information is protected by the Federal Confidentiality of Alcohol and Drug Abuse Patient Records regulations: The Federal rules restrict any use of the information to criminally investigate or prosecute any alcohol or drug abuse patient.[facility] CenterIn the event this information is protected by the Federal Confidentiality of Alcohol and Drug Abuse Patient Records regulations: The Federal rules restrict any use of the information to criminally investigate or prosecute any alcohol or drug abuse patient.[facility] CenterIn the event this information is protected by the Federal Confidentiality of Alcohol and Drug Abuse Patient Records regulations: The Federal rules restrict any use of the information to criminally investigate or prosecute any alcohol or drug abuse patient.[facility] CenterIn the event this information is protected by the Federal Confidentiality of Alcohol and Drug Abuse Patient Records regulations: The Federal rules restrict any use of the information to criminally investigate or prosecute any alcohol or drug abuse patient.[facility] CenterIn the event this information is protected by the Federal Confidentiality of Alcohol and Drug Abuse Patient Records regulations: The Federal rules restrict any use of the information to criminally investigate or prosecute any alcohol or drug abuse patient.[facility] CenterIn the event this information is protected by the Federal Confidentiality of Alcohol and Drug Abuse Patient Records regulations: The Federal rules restrict any use of the information to criminally investigate or prosecute any alcohol or drug abuse patient.[facility] CenterIn the event this information is protected by the Federal Confidentiality of Alcohol and Drug Abuse Patient Records regulations: The Federal rules restrict any use of the information to criminally investigate or prosecute any alcohol or drug abuse patient.[facility] CenterIn the event this information is protected by the Federal Confidentiality of Alcohol and Drug Abuse Patient Records regulations: The Federal rules restrict any use of the information to criminally investigate or prosecute any alcohol or drug abuse patient.[facility] CenterIn the event this information is protected by the Federal Confidentiality of Alcohol and Drug Abuse Patient Records regulations: The Federal rules restrict any use of the information to criminally investigate or prosecute any alcohol or drug abuse patient.[facility] CenterIn the event this information is protected by the Federal Confidentiality of Alcohol and Drug Abuse Patient Records regulations: The Federal rules restrict any use of the information to criminally investigate or prosecute any alcohol or drug abuse patient.[facility] CenterIn the event this information is protected by the Federal Confidentiality of Alcohol and Drug Abuse Patient Records regulations: The Federal rules restrict any use of the information to criminally investigate or prosecute any alcohol or drug abuse patient.[facility] CenterIn the event this information is protected by the Federal Confidentiality of Alcohol and Drug Abuse Patient Records regulations: The Federal rules restrict any use of the information to criminally investigate or prosecute any alcohol or drug abuse patient.[facility] CenterIn the event this information is protected by the Federal Confidentiality of Alcohol and Drug Abuse Patient Records regulations: The Federal rules restrict any use of the information to criminally investigate or prosecute any alcohol or drug abuse patient.[facility] CenterIn the event this information is protected by the Federal Confidentiality of Alcohol and Drug Abuse Patient Records regulations: The Federal rules restrict any use of the information to criminally investigate or prosecute any alcohol or drug abuse patient.[facility] CenterIn the event this information is protected by the Federal Confidentiality of Alcohol and Drug Abuse Patient Records regulations: The Federal rules restrict any use of the information to criminally investigate or prosecute any alcohol or drug abuse patient.[facility] CenterIn the event this information is protected by the Federal Confidentiality of Alcohol and Drug Abuse Patient Records regulations: The Federal rules restrict any use of the information to criminally investigate or prosecute any alcohol or drug abuse patient.[facility] CenterIn the event this information is protected by the Federal Confidentiality of Alcohol and Drug Abuse Patient Records regulations: The Federal rules restrict any use of the information to criminally investigate or prosecute any alcohol or drug abuse patient.[facility] CenterIn the event this information is protected by the Federal Confidentiality of Alcohol and Drug Abuse Patient Records regulations: The Federal rules restrict any use of the information to criminally investigate or prosecute any alcohol or drug abuse patient.[facility] CenterIn the event this information is protected by the Federal Confidentiality of Alcohol and Drug Abuse Patient Records regulations: The Federal rules restrict any use of the information to criminally investigate or prosecute any alcohol or drug abuse patient.[facility] CenterIn the event this information is protected by the Federal Confidentiality of Alcohol and Drug Abuse Patient Records regulations: The Federal rules restrict any use of the information to criminally investigate or prosecute any alcohol or drug abuse patient.[facility] CenterIn the event this information is protected by the Federal Confidentiality of Alcohol and Drug Abuse Patient Records regulations: The Federal rules restrict any use of the information to criminally investigate or prosecute any alcohol or drug abuse patient.[facility] CenterIn the event this information is protected by the Federal Confidentiality of Alcohol and Drug Abuse Patient Records regulations: The Federal rules restrict any use of the information to criminally investigate or prosecute any alcohol or drug abuse patient.[facility] CenterIn the event this information is protected by the Federal Confidentiality of Alcohol and Drug Abuse Patient Records regulations: The Federal rules restrict any use of the information to criminally investigate or prosecute any alcohol or drug abuse patient.[facility] CenterIn the event this information is protected by the Federal Confidentiality of Alcohol and Drug Abuse Patient Records regulations: The Federal rules restrict any use of the information to criminally investigate or prosecute any alcohol or drug abuse patient.[facility] CenterIn the event this information is protected by the Federal Confidentiality of Alcohol and Drug Abuse Patient Records regulations: The Federal rules restrict any use of the information to criminally investigate or prosecute any alcohol or drug abuse patient.[facility] CenterIn the event this information is protected by the Federal Confidentiality of Alcohol and Drug Abuse Patient Records regulations: The Federal rules restrict any use of the information to criminally investigate or prosecute any alcohol or drug abuse patient.[facility] CenterIn the event this information is protected by the Federal Confidentiality of Alcohol and Drug Abuse Patient Records regulations: The Federal rules restrict any use of the information to criminally investigate or prosecute any alcohol or drug abuse patient.[facility] CenterIn the event this information is protected by the Federal Confidentiality of Alcohol and Drug Abuse Patient Records regulations: The Federal rules restrict any use of the information to criminally investigate or prosecute any alcohol or drug abuse patient.[facility] CenterIn the event this information is protected by the Federal Confidentiality of Alcohol and Drug Abuse Patient Records regulations: The Federal rules restrict any use of the information to criminally investigate or prosecute any alcohol or drug abuse patient.[facility] CenterIn the event this information is protected by the Federal Confidentiality of Alcohol and Drug Abuse Patient Records regulations: The Federal rules restrict any use of the information to criminally investigate or prosecute any alcohol or drug abuse patient.[facility] CenterIn the event this information is protected by the Federal Confidentiality of Alcohol and Drug Abuse Patient Records regulations: The Federal rules restrict any use of the information to criminally investigate or prosecute any alcohol or drug abuse patient.[facility] CenterIn the event this information is protected by the Federal Confidentiality of Alcohol and Drug Abuse Patient Records regulations: The Federal rules restrict any use of the information to criminally investigate or prosecute any alcohol or drug abuse patient.[facility] Reason for Visit (unrecogniz ed [...] & PEL[place] [address] [place] [address] [place] [address] Referral ID Status Reason Start Date Expiration Date V isits Requested Visits Authorized [id number] Closed Auto-Generate d Referral 05/27/2022 06/26/2023 1 [...] Received Outside Medical Records [facility] [place] Reason Comments Received Outside Medical Records Cardio Clearance [facility] [place] Reason Comments Back Pain Reason Comments Dyspareunia [...] ligament of right ankle, subsequent encounter Procedures [place] OFFICE/OUTPATIENT NEW HIGH MDM Giovani Hagen MD [address] [facility] [address] [place] [address] Phone: tel: fax: Prateek Pedraza DPM [address] [facility] [address] [place] [address] Phone: tel: fax: Referral ID Status Reason Start Date Expiration Date V isits Requested Visits Authorized [id number] Closed Specialty Services Required 04/22/2024 10/19/2024 1 [...] WK 2 post op Reason Comments Painful [place] bleeding with intercourse Reason Comments Post-op 3 [...] EXERCISES RE, EA 15 MIN. Mario Harper, [employer] [address] [place] [address] Phone: tel: fax: [facility] [address] [place] [address] Referral ID Status Reason Start Date Expiration Date Visits Requested Visits Authorized [id number] Authorized Auto-Generat ed Referral 10/23/2023 10/21/2024 25 25 Reason Comments Radio Gen RMP Specialty Diagnoses / Procedures Referred By Contac t Referred To Contact XR IMAGING Diagnoses Pelvic floor dysfunction Chronic constipation Procedures XR ABDOMEN 1V SUPINE RADIOLOGIC EXAM ABDOMEN 1 VIEW Meredith Mario, [employer] [address] [place] [address] Phone: tel: fax: XR [facility]ING [id number] Referral ID Status Reason Start Date Expiration Date Visits Requested Visits Authorized [id number] Authorized Auto-Generat ed Referral 10/09/2024 11/08/2025 3 [...] dyspareunia Pelvic pain in female Procedures OFFICE/OUTPATIENT [facility] 60 MINUTES Javy Boudreaux MD [address] [address] Phone: tel: fax: Referral ID Status Reason Start Date Expiration Date V isits Requested Visits Authorized [id number] Closed PCP Requested Referral Auto-Generated Referral 07/10/2024 [...] BE BASED ON THE PRIMARY CLINICAL RECORDS. [employer] provides no warranty or guarantee of the accuracy or completeness of information in this document.
== END 2025-01-09 12:07 | disposition home or self-care (01) ==
PROVIDERS: PCP Family Medicine; Visit Provider Obstetrics & Gynecology
DX: R74.8 Abnormal levels of other serum enzymes (principal)
CPT/HCPCS: 36415; 80074

== ENCOUNTER 2025-01-09 12:12 | Outpatient (OUT) | payer OTHER, SELFPAY ==
--- OUTSIDE RECORDS SUMMARY | 2025-01-09 12:28 | XMS_ITS | CCD ---
Author Organization [facility] CliniSyal Care Team Providers Care Open Developer Operator Name Role Phone OZIEL MONTEIRO Referring Unavailable GIOVANI HAGEN Primary Care Unavailable MD Erwin Hylton Attending Provider [phone] MD Giovani Hagen Primary Care Provider Giovani Hagen Primary Care Provider Erwin Hylton Unavailable GIOVANI HAGEN Primary Care Physician [phone] K[address] ., DR SIMON Consulting Unavailabl e [...] Consulting Unavailable SONIYA PATEL Referring Unavailable [facility], [facility] Primary Care Unavailable MAKENNA AMAYA Consulting Unavailable Giovani Hagen MD Primary Care Provider Giovani Hagen MD Unavailable Giovani Hagen MD Primary Care Provider Deena Lyn CNP Unavailable SOLO MORA Referring Unavailable HIEU, GIOVANI ENRIQUE Primary Care Unavailable Darwin Starr DO R Unavailable Giovani Hagen MD Primary Care Provider Dank Green MD Admit Provider Dank Green MD Attending Provider Dank Green Admitting Unavailab Rahul Ugarte Attending Unavailable [place] Primary Care Unavailable JEREMIAH HARPERINE Referring Unavailable HIEU, [facility] Primary Care Unavailable HIEU, [facility] Primary Care Unavailable ILIANA MERCADO Referring Unavailable Hieu , [facility] Primary Care Provider Deena Lyn APRN Unavailable HIEU, [facility] Primary Care Unavailable KOCHAR, ARSHNEEL Referring Unavailable KOCHAR, ARSHNEEL Referring Unavailable HIEU, [facility] Primary Care Unavailable HIEU, [facility] Primary Care Unavailable ILIANA MERCADO Referring Unavailable ILIANA MERCADO Referring Unavailable HIEU, [facility] Primary Care Unavailable ILIANA MERCADO Referring Unavailable OBED BHATT Attending Unavailable HIEU, [facility] Primary Care Unavailable HIEU, [facility] Primary Care Unavailable ILIANA MERCADO Referring Unavailable KOCHAR, ARSHNEEL Attending Unavailable KOCHAR, ARSHNEEL Referring Unavailable HIEU, [facility] Primary Care Unavailable DAKHIL, NOMA Referring Unavailable MARIO HARPER Attending Unavailable HIEU, GIOVANI [facility] Primary Care Unavailable LYDIA ROCK Attending Unavailable MEREDITH, MARIO Referring [facility] Primary Care Unavailable MARIO HARPER Attending Unavailable [facility] Primary Care Unavailable JEREMIAH HARPERINE Referring Unavailable HIEU, [facility] Primary Care Unavailable LYDIA KELLEY Attending Unavailab le HIEU, [facility] Primary Care Unavailable ILIANA MERCADO Attending Unavailable HIEU, [facility] Primary Care Unavailable LILY BOUDREAUXI S Referring Unavailable EMMA YING Attending Unavailable HIEU, [facility] Primary Care Unavailable HIEU, [facility] Primary Care Unavailable JAVY BOUDREAUX S Attending Unavailable DARWIN STARR Referring Unavailable HIEU, [facility] Primary Care Unavailable JAVY BOUDREAUX Referring Unavailable Iliana Cramer Attending Unavailable Madhuri MISHRA Attending Unavailable BelaIliana mcclellan Attending Unavailable DOLCE, MILTON Roth Attending Unavailable DOLCE, MILTON Roth Referring Unavailable YSESYAYLEEN BOLANOS Attending Unavailable HIEU, GIOVANI M Attending [...] sources) Iodine Drug Allergy 04-11-20 Swelling, Itching [facility] Iohexol (2 sources) Iohexol Drug Allergy 04-12-20 Itching [facility] (20 sources) Iodine; Translations: [IODINE] Drug Allergy 04-11-20 Swelling, Itching [facility] (20 sources) Iohexol; Translations: [IOHEXOL] Drug Allergy 04-12-20 Itching [facility] (1 source) Cat Propensity to adverse reactions anaphylaxis [facility] [employer] Other (16 sources) tree nut, unspecified; Translations: [TREE NUTS] Propensity to adverse reactions 07-11-19 anaphylaxis [facility] [employer] Other (1 source) peanut allergenic extract Drug Allergy [facility] (1 source) Cat/Feline Product Derivatives Drug allergy (disorder) 01-08-20 13 [facility] (20 sources) Cat Hair Extract Allergy to substance 12-01-19 Anaphylaxis [facility] (20 sources) Iodinated Contrast Media; Translations: [IODINATED CONTRAST MEDIA] Drug Allergy 04-12-20 Hives, Anaphylaxis, Itching [facility] (20 sources) Prednisone & Diphenhydramine Drug Allergy 10-03-19 [facility] (16 sources) Cat Dander; Translations: [cat dander] Drug Allergy 05-03-19 Anaphylaxis [facility] (1 source) tree nut, unspecified Drug allergy (disorder) 05-03-19 [facility] (1 source) No Known Medication Allergies; Translations: [No Known Medication Allergies] Propensity to adverse reactions (disorder) [facility] Repository Medications Current Medications Medication [...] every four hours as needed HYDROcodone-acetami nophen (Aurora) 5-325 MG tablet Take 1 tablet by mouth every 4 (four) hours if needed 09/06/2024 09/17/2024 Discontinued (Therapy completed) Start: 05-09-2024 End: 05-14-2024 take 1 tablet by mouth every six hours for pain HYDROcodone-acetaminophen (Aurora) 5-325 MG tablet Indications: Cervical radiculopathy due to degenerative joint disease of spine Take 1 tablet by mouth every 6 (six) hours if needed for severe pain for up to 5 days 20 tablet 05/09/2024 05/14/2024 Active Start: 04-16-2024 End: 04-21-2024 take 1 tablet by mouth every six hours for pain HYDROcodone-acetaminophen (Aurora) 5-325 MG tablet Indications: Sprain of anterior talofibular ligament of right ankle, subsequent encounter Take 1 tablet by mouth every 6 (six) hours if needed for severe pain for up to 5 days 20 tablet 04/16/2024 04/21/2024 [id number] 200 actuat albuterol 0.09 mg/actuat metered dose [...] Start: 08-16-2024 take 1 capsule by mo [facility] once daily in the morning Dextroamphetamine-Amphetamine [...] capsules by mouth at bedtime Bis Subcit Aui-Clqho-Ujkabxam (PYLERA) 140-125-125 mg per capsule Take 3 [...] in partial remission, most recent episode manic ([facility]/HCC) TAKE 1 CAPSULE BY MOUTH EVERY DAY [...] UTI, # 20 cap(s), Refills(s) 2, Pharmacy: [facility]/pharmacy #[id number], 158, cm, 12/28/23 15:24:00 [...] days., # 50 cap(s), Refills(s) 0, Pharmacy: [facility]/pharmacy #[id number], 158, cm, 06/29/22 8:19:00 [...] take 1 puff(s) by inhalation once daily Jvxhrzvglsr-Fegawumhp-Kqdktc (Trelegy Ellipta) 100-62.5-25 MCG/ACT aerosol powder Indications: Moderate persistent asthmatic bronchitis with acute exacerbation (HCC) INHALE 1 PUFF DAILY 60 each 2 09/03/2024 Active Start: 04-16-2024 End: 06-25-2024 take 1 puff(s) by inhalation once daily Lzdluwakksj-Vlsgvyphf-Nyrntw 100-62.5-25 MCG/ACT aerosol powder Indications: Moderate persistent asthmatic bronchitis with acute exacerbation (CMS/HCC) Inhale 1 puff Daily 1 each 04/16/2024 06/25/2024 Discontinued Start: 05-24-2022 take 1 puff(s) by inhalation once daily Jnxudymmqpm-Bdrddgbnq-Fepniz 100-62.5-25 MCG/ACT aerosol powder INHALE 1 PUFF [...] Discontinued (Other) take 1 capsule by mo [facility] every twenty-four hours Vyvanse 50 MG [...] on above: TAKE 1 CAPSULE BY MO [facility] EVERY DAY IN THE MORNING [...] angina pectoris; Translations: [Atherosclerotic heart disease of [place] coronary artery without angina pectoris] Onset: 2 [...] Urnls Dip Stick Auto w/o Microscopy POC 05437 2. Kidney stones (N20.0: Calculus of kidney) S/p R ESWL KUB 06/29/22 at [facility] - negative Metabolic workup 07/08/22 - slightly elevated Na (149), low output volume (1000 mL) KUB 11/16/23 - negative KUB 10/23/24 - negative for stones Reviewed KUB w/ patient. She denies recent flank pain, gross hematuria or stone passage. She would like to continue to monitor for new stones. -Cont stone prevention diet -F/U in 1 year w/ MAYA and KUB ([facility]) prior, or sooner if needed Ordered: Urnls Dip Stick Auto w/o Microscopy POC 92407 3. Stress incontinence (N39.3: Stress incontinence (female) [...] (unknow) So (more content not included)... Normal [facility] Comment on above: Result [...] HAGEN MD This Is Your Medications List [facility] Prescription (BUPROPION HYDROCHLORIDE ER (XL) 300 MG [...] Iliana Cramer PA-C Where: [facility] [address] [address]- Medications What How Much When Why Instructions [...] signed up for this yet, please contact [employer] at [phone] to get signed up today. Language Information Language assistance services are available as needed. Kelsy [facility] CNOVon 12-30-2024 CNOV Office Visit (WHICCP ) ORION HARPER ([id number]) 1990 F Date Time Provider Department 12/30/24 9:00 AM EMMA YING [facility] During your visit today, we recorded the following information about you: Blood pressure Weight 132/94 92.9 kg Emma Ying APRN.SALESPERSON HEARING AIDS 12/30/2024 10:35 AM Signed [facility] SECTION FOR CHRONIC PELVIC PAIN OUTPATIENT VISIT DATE 12/30/2024 OUTPATIENT VISIT TYPE CONSULT REFERRING PROVIDER: Javy Boudreaux MD PRIMARY CARE PROVIDER: Giovani Hagen MD, MD PRIMARY AVIATION PROJECT MANAGER: Consultation requested by referring provider above for an opinion regarding Orion Harper, and my final recommendations will be communicated back to the requesting physician by way of shared medical record or letter via US mail. Recording using Apertio software for draft documentation of the visit was discussed with the patient/authorized district sales representative; all questions welcomed and answered. Patient/authorized district sales representative agreed to proceed CHIEF COMPLAINT/REASON [...] is not in contact with those individuals. Programs Assistant Hx: (page 3) Menarche: 9 Currently experiences: Not menstruating Duration of dysmenorrhea symptoms: n/a Currently missing school/work: N/A Prior dysmenorrhea treatment: Other, Hysterectomy Current control: Nothing History of STD: Negative history [facility] intake LMP: Patient's last menstrual period was 05/25/2015. Cycles: Hysterectomy, Flow: n/a Intermenstrual spotting between periods: N/A Last pap: Pap Results: WNL 03/20/2024, HPV: History of abnormal pap: Yes [place]: ([facility] intake) Dyspareunia: both insertional and deep [...] Pain characteristics: (page 5) Pain started (month/year): 5678-0925 Inciting event: No obvious cause/do not know Onset: Gradual Duration of pain: 2-5 years Character of pain: Sharp, stabbing Wakes from sleep: No Radiation of pain: No Aggravating factors: [place]/Sexual contact Alleviating factors: Nothing makes it better Bowel habits: (page 12-13) Nause (more content not included)... Normal [facility] XR Foot - right 3 [facility] Result: Radiographs: Three views were taken today AP/MORT/LAT Ankle: No fractures or dislocations seen mild swelling circumferentially around the ankle. Small leanne fracture noted of the medial aspect of the medial malleolus. [facility] XR Foot - right 3 [facility] Study observation (narrative) [facility] MLR HEMOGLOBIN A1Con 025 Glucose [Mass/Vol] 114 mg/dL [facility] HbA1c (Bld) [Mass fraction] 5.6 % 4.5 - 6.2 % [facility] Comment on above: ADA RECOMMENDED LIMI T 4.0 - 6.0 ADA THERAPEUTIC TARGET < 7.0 ACTION SUGGESTED > 7.0 CLINISYNC [facility] No Panel InformationOrdered By: Radiologist Radiology on 10-23-2024 [facility] Work Phone: No Panel Informationon 10-23 Radiology Study observation (narrative) [facility] XR ABDOMEN 1V SUPINEon 10-23 * * [...] No radiopaque markers are noted in the qcciw-wa-ubbn. IMPRESSION: 0 Sitzmarks markers. The previously noted [...] any questions regarding this interpretation, please call [phone]. If you are unable to reach us at the number above, please feel free to contact [facility] at [phone]. [id number]^[email or web address]^SI ^ACN [facility] Radiology, Radiologist, - 10/23/2024 * * *Final [...] No radiopaque markers are noted in the vgumd-ez-qxtr. IMPRESSION: 0 Sitzmarks markers. The previously noted [...] any questions regarding this interpretation, please call [phone]. If you are unable to reach us at the number above, please feel free to contact [facility] at [phone]. [id number]^[email or web address]^SI ^ACN [facility] XR ABDOMEN 1V SUPINE * * *Final [...] No radiopaque markers are noted in the huape-lq-bgjy. IMPRESSION: 0 Sitzmarks markers. The previously noted [...] any questions regarding this interpretation, please call [phone]. If you are unable to reach us at the number above, please feel free to contact [facility] at [phone]. [id number] N Normal [facility] XR Abdomen Supine and Uprigh ton 10-23-2024 [...] any questions regarding this interpretation, please call [phone]. If you are unable to reach us at the number above, please feel free to contact [facility] at [phone]. DIVISION OF RADIOLOGY * * *Final Report* [...] No radiopaque markers are noted in the abbsh-ic-rtly. DIVISION OF RADIOLOGY Provider, [facility] Shemar mccarthy [facility] - 10/23/2024 * * *Final Report* * [...] No radiopaque markers are noted in the eiqxc-xt-dcll. IMPRESSION IMPRESSION: 0 Sitzmarks markers. The previously [...] any questions regarding this interpretation, please call [phone]. If you are unable to reach us at the number above, please feel free to contact [facility] at [phone]. [facility] MRI HEAD/BRAIN WO/W CONTRon 10-21-[address] [address] Magnetic Resonance Report Signed Patient: ORION HARPER MR#: [id number] : 1990 Acct:[id number] Age/Sex: 34 / F ADM Date: 10/21/24 Loc: MRI Attending Dr: SHANNON DARDEN Ordering Physician: SHANNON DARDEN Date of Service: 10/21/24 Procedure(s): MR head/brain wo/w con Accession Number(s): [id number] cc: GIOVANI HAGEN ; SHANNON DARDEN [address] [address] Patient Name: ORION HARPER MRN: [facility]:[id number] date: 1990 Sex: F Assigned Patient Location: MRI Current Patient Location: MRI Accession/Order Number: [id number] Exam Date: 10/21/2024 11:17 Report Date: 10/21/2024 [...] Knight M.D. 10/21/2024 11:39 AM Dictation Location: [place] [address] Electronically authenticated by: [id number] Y Date: 10/21/2024 11:39 Dictated By: Sandy Knight M.D. 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: [facility] Radiology, Radiologist, MD - 10/21/2024 [place] [address] Magnetic Resonance Report Signed Patient: ORION HARPER MR#: [id number] : 1990 Acct:[id number] Age/Sex: 34 / F ADM Date: 10/21/24 Loc: MRI Attending Dr: SHANNON DARDEN Ordering Physician: SHANNON DARDEN Date of Service: 10/21/24 Procedure(s): MR head/brain wo/w con Accession Number(s): [id number] cc: GIOVANI HAGEN ; SHANNON DARDEN [place] [address] Patient Name: ORION HARPER MRN: [facility]:[id number] date: 1990 Sex: F Assigned Patient Location: MRI Current Patient Location: MRI Accession/Order Number: [id number] Exam Date: 10/21/2024 11:17 Report Date: 10/21/2024 [...] Knight M.D. 10/21/2024 11:39 AM Dictation Location: [place] [address] Electronically authenticated by: [id number] Y Date: 10/21/2024 11:39 Dictated By: Sandy Knight M.D. 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 IMPRESSION: Sitzmarks markers as described. 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 Date/Time: Oct 28 2024 9:07A Dictated by : ANNITA STILL MD This examination was interpreted and the report reviewed and electronically signed by: ANNITA STILL MD on Oct 28 2024 9:08AM EST [id number] N [facility] [id number] 10-11-2024 [id number] HNO ID: [id number] Author: LYDIA ROCK PT, DPT Service: ? Author Type: Physical Therapist Type: [id number] Filed: 10/11/2024 15:55 Note Text: [facility] Physical Therapy Plan of Care Certification Patient Name: Orion Harper : 1990 [facility] #: [id number] Date: 10/11/2024 To: Mario Harper APRN* From Therapist: Lydia Rock PT, DPT RE: Patient Certification/ Recertification Your review, approval and electronic signature are required in order to comply with Payor: MMO / Plan: MMO [facility] PPO / Product Type: PPO / [...] Planned: 4 Planned Treatment Interventions: Therapeutic exercise (86779), Neuromuscular re-education (44529), Manual therapy (65456), Therapeutic activities (87940), Self-long-term management (36398), Patient/Family/Caregi nataliia Education, Body Mechanics Training PLAN [...] reviewed the treatment plan for Orion Harper, [facility]# [id number] for the period of 10/11/24 -- 01/09/25, established on 10/11/2024. Signature certifies the need for therapy services. Normal [facility] CNTHERAPYon 10-11-2024 CNTHERAPY OT/PT/Speech Visit (PTCORD) ORION HARPER ([id number]) 1990 F Date Time Provider Department 10/11/24 2:45 PM LYDIA ROCK Date Time Provider Department Center 10/11/2024 2:45 PM [id number] ROCK [facility] Reason for Visit: PT Eval [...] Date Reviewed: 10/09/2024 Reviewed by: Mario Harper APRN.SALESPERSON HEARING AIDS - Fully Assessed Prescriptions as of 10/11/2024 [...] 4.5 mg by mouth once daily. Normal [facility] CNOVon 10-09-2024 CNOV Office Visit ([facility] ) ORION HARPER ([id number]) 1990 F Date Time Provider Department 10/09/24 1:00 PM MARIO HARPER [facility] During your visit today, we [...] for internal providers or letter via the [employer] Postal Service for external providers. Recording using Apertio software for draft documentation of the visit was discussed with the patient/authorized district sales representative; all questions welcomed and answered. Patient/authorized district sales representative agreed to proceed Chief Complaint: [...] pt complaine (more content not included)... Normal [facility] 10-01-2024 ISABELN Telephone (TANI) ORION HARPER ([id number]) 1990 F Date Time Provider Department 10/01/24 [...] Order(s):CONSULT TO COLO-RECTAL SURGERY [] Order #: [id number]: 1 FUTURE Prescriptions as of 10/02/2024 - [...] Status:Closed by ILIANA MERCADO on 10/01/[address] [facility] Cholesterol [Mass/volume] in Serum or PlasmaOrdered By: Dank Green on 08-17-2024 Cholesterol [Mass/Vol] Cholesterol [Mass/volume] in Serum or Plasma 140-200 [facility] Comment on above: Chol less than 200 m g/dl low riskChol 201-239 mg/dl borderline riskChol 240 mg/dl and greater high risk Cholesterol in HDL [Mass/vol ume] in Serum or PlasmaOrdered By: Dank Green on 08-17-2024 Cholesterol in HDL [Mass/Vol] Serum or plasma high density lipoprotein (HDL) cholesterol measurement 23-92 [facility] Comment on above: HDL CHOL ATP-III CLA SSIFICATION Cardiovascular RiskHDL > or equal to 60 mg/dL LOWHDL < 40 mg/dL HIGH Cholesterol in LDL Calc [Mas s/Vol]Ordered By: Dank Green on 08-17-2024 Cholesterol in LDL [Mass/Vol] Cholesterol in LDL [Mass/volume] in Serum or Plasma by calculation High 0-100 [facility] Comment on above: LDL ATP III CLASSIFI CATIONLDL less than 100 mg/dL OptimalLDL 100-129 mg/dL Near or above optimalLDL 130-159 mg/dL Borderline highLDL 160-189 mg/dL HighLDL greater than 189 mg/dL Very high Cholesterol in VLDL Calc [Ma ss/Vol]Ordered By: Dank Green on 08-17-2024 Cholesterol in VLDL [Mass/Vol] Cholesterol in VLDL [Mass/volume] in Serum or Plasma by calculation [facility] Lipid Panelon 08-17-2024 Cholesterol [Mass/Vol] 183 mg/dL Normal 140-200 [facility] Comment on above: Result Comment: Chol less than 200 mg/dl low risk Chol 201-239 mg/dl borderline risk Chol 240 mg/dl and greater high risk Performed By: #### T SH3 wRFLX, LIPID, [id number] #### [facility] [address] Cholesterol in HDL [Mass/Vol] 59 mg/dL Normal 23-92 [facility] Comment on above: Result Comment: HDL CHOL ATP-III CLASSIFICATION Cardiovascular Risk HDL > or equal to 60 mg/dL LOW HDL < 40 mg/dL HIGH Performed By: #### T SH3 wRFLX, LIPID, [id number] #### [facility] [address] Cholesterol.total/Chol esterol in HDL [Mass ratio] 3.1 {ratio} Normal <5.0 [facility] Comment on above: Performed By: #### T SH3 wRFLX, LIPID, [id number] #### [facility] [address] LDL Cholesterol,Calculated 101 mg/dL High 0-100 [facility] Comment on above: Result Comment: LDL ATP III CLASSIFICATION LDL less than 100 mg/dL Optimal LDL 100-129 mg/dL Near or above optimal LDL 130-159 mg/dL Borderline high LDL 160-189 mg/dL High LDL greater than 189 mg/dL Very high Performed By: #### T SH3 wRFLX, LIPID, [id number] #### [facility] [address] [place] [id number] [place] Triglyceride w/Reflex 113 mg/dL Normal 0-149 [facility] Comment on above: Result Comment: TRIG ATP III CLASSIFICATION TRIG less than 150 mg/dL Normal TRIG 150-199 mg/dL Borderline high TRIG 200-500 mg/dL High TRIG greater than 500 mg/dL Very high Standard traceable to the Center for Disease Conrtrol and Prevention (CDC) test method. Performed By: #### T SH3 wRFLX, LIPID, [id number] #### [facility] [address] VLDL CHOLESTEROL 22 mg/dL Normal [facility] Comment on above: Performed By: #### T SH3 wRFLX, LIPID, [id number] #### [facility] [address] Serum or plasma total choles terol/high density lipoprotein (HDL) cholesterol mass ratOrdered By: Dank Green on 08-17-2024 Cholesterol.total/Chol esterol in HDL [Mass ratio] Serum or plasma total cholesterol/high density lipoprotein (HDL) cholesterol mass rat <5.0 [facility] Thyroid Stim Hormone w/Rflxo n 08-17-2024 Thyroid Stim Hormone w/Rflx 3.84 u[iU]/mL Normal 0.45-5.33 [facility] Comment on above: Performed By: #### T SH3 wRFLX, LIPID, [id number] #### [facility] [address] Thyrotropin [Units/volume] i n Serum or PlasmaOrdered By: Dank Green on 08-17-2024 TSH Qn Thyrotropin [Units/volume] in Serum or Plasma 0.45-5.33 [facility] Triglyceride [Mass/volume] i n Serum or PlasmaOrdered By: Dank Green on 08-17-2024 Triglyceride [Mass/Vol] Triglyceride [Mass/volume] in Serum or Plasma 0-149 [facility] Comment on above: TRIG ATP III CLASSIF ICATIONTRIG less than 150 mg/dL NormalTRIG 150-199 mg/dL Borderline highTRIG 200-500 mg/dL High TRIG greater than 500 mg/dL Very highStandard traceable to the Center for Disease Conrtrol and Prevention (CDC) test method. Vitamin D 25 Hydroxy Totalon 08-17-2024 Vitamin D 25 Hydroxy Total 13.6 ng/mL Low 30-100 [facility] Comment on above: Result Comment: MAYA MIN D STATUS 25(OH)VITAMIN D RANGE (ng/mL) Deficient <20 Insufficient 20 to <30 Sufficient 30 to 100 Reference: Cheyanne Valle, Elio MELVIN, et al. Evaluation,treatment, and prevention of vitamin D deficiency; an Endocrine Society clinical practice guideline. JCEM. 2010; 96(7):1911-30. PERFORMED BY: [facility] [address] [facility] [address] PATHOLOGIST SUSTAINABILITY PROJECT MANAGER PADILLA MOLINA M.D. Performed By: #### T SH3 wRFLX, LIPID, [id number] #### [facility] [address] Vitamin D+Metabolites [Mass/ volume] in Serum or PlasmaOrdered By: Dank Green on 08-17-2024 Vitamin D+Metabolites [Mass/Vol] Vitamin D+Metabolites [Mass/volume] in Serum or Plasma Low 30-100 [facility] Comment on above: VITAMIN D STATUS 25( [place])VITAMIN D RANGE (ng/mL) Deficient <20 Insufficient 20 to <30Sufficient 30 to 100Reference: Cheyanne Valle, Elio MELVIN, et al. Evaluation,treatment, and prevention of vitamin D deficiency; an Endocrine Society clinical practice guideline. JCEM. 2010; 96(7):1911-30. CNOVon 08-13-2024 CNOV Office Visit (CARDMN ) ORION HARPER ([id number]) 1990 F Date Time Provider Department 08/13/24 2:30 PM SOLO MORA During your visit today, we recorded the following information about you: Pulse Blood pressure Weight Height 92/minute 140/96 81.6 kg 1.6 m Solo Mora MD 08/26/2024 3:56 PM Signed [facility] Department of Cardiovascular Medicine SECTION OF CARDIAC PACING and ELECTROPHYSIOLOGY OUTPATIENT VISIT DATE August 13, 2024 OUTPATIENT VISIT TYPE ESTABLISHED PRIMARY CARE PHYSICIAN: Giovani Hagen MD [address] [place] [address] CHIEF COMPLAINT: Syncope HISTORY OF PRESENT ILLNESS:(NURSING [...] ischemia (more content not included)... Normal [facility] STRESS ECHO TREADMILLon 04-2 STRESS ECHO TREADMILL Stress District Manager Major Accounts Sales Report: Stress Echo [facility] J1-5 Date of service: 08/13/2024 12:34:08 PM ASSISTANT Supervising physician: Geremias Higuera MD PATIENT: Name: ORION HARPER Age: 33 years Gender: F The supervising physician was in the department and immediately available. Final -------- Echocardiography Report: Stress Echo [facility] J1-5 Date of service: 08/13/2024 12:34:08 PM ASSISTANT Ordering physician: SOLO MORA Indication: Syncope Technologist: [...] the prior echocardiographic exam performed on 04/09/2024 ([place]). The major resting echocardiographic findings are comparable. Final -------- Stress ECG Report: Stress Echo [facility] J1-5 Date of service: 08/13/2024 12:34:08 PM ASSISTANT Ordering physician: SOLO MORA auditing specialist: Bunny Epperson Fellow: Kiley Gallagher MD [...] estimated e (more content not included)... [facility] HAR[facility] ([id number]) 1990 F Date Time Provider Department 07/26/24 [...] Iliana, Looks like labs were completed at [facility]. Patient is asking about results. Thank [...] Encounter Status:Closed by ACACIA GONZALEZ on 08/15/24 [facility] 07-10-2024 CNOV [facility] ORION HARPER ([id number]) 1990 F Date Time Provider Department 07/10/24 [...] - painful intercourse Referred here by her BALANCE WHEEL FACER at [place]. Has been having pain with intercourse for [...] - PELVIC US WHI - CONSULT TO BALANCE WHEEL FACER PELVIC PAIN 2. Pelvic pain in female - ICD9: 625.9, ICD10: R10.2 - counseled. - PELVIC US WHI - CONSULT TO BALANCE WHEEL FACER PELVIC PAIN Javy Boudreaux MD Medical Decision Making: Problems: Moderate: New problem with uncertain prognosis Data: Unique test(s) ordered: 2 Risk: Low: Low risk from testing/treatment Medical Decision Making Level: 3 - Low Referring Provider: DARWIN STARR [[id number]] Allergies As of Date: 07/10/2024 Noted Allergy [...] edward (more content not included)... Normal [facility] Comprehensive metabolic 2000 panelon 07-10-2024 Albumin [Mass/Vol] 4.5 g/dL Normal 3.9-4.9 [facility] Comment on above: Order Comment: Speci men Type: STOOL SPECIMEN Ordering Facility: [facility] Address: [address] [place] [address] Performed By: #### 5 4067-4, CDEIA #### [facility] CLIA [id number] [address] [place] [address] [place] ALP [Catalytic activity/Vol] 130 U/L High 34-123 [facility] Comment on above: Order Comment: Speci men Type: STOOL SPECIMEN Ordering Facility: [facility] Address: [address] [place] [address] Performed By: #### 5 4067-4, CDEIA #### [facility] CLIA [id number] [address] [place] [address] [place] ALT [Catalytic activity/Vol] 141 U/L High 7-38 [facility] Comment on above: Order Comment: Speci men Type: STOOL SPECIMEN Ordering Facility: [facility] Address: [address] [place] [address] Performed By: #### 5 4067-4, CDEIA #### [facility] CLIA [id number] [address] [place] [address] [place] Anion gap [Moles/Vol] 11 mmol/L Normal 8-15 [facility] Comment on above: Order Comment: Speci men Type: STOOL SPECIMEN Ordering Facility: [facility] Address: [address] [place] [address] Performed By: #### 5 4067-4, CDEIA #### [facility] CLIA [id number] [address] [place] [address] [place] AST [Catalytic activity/Vol] 90 U/L High 13-35 [facility] Comment on above: Order Comment: Speci men Type: STOOL SPECIMEN Ordering Facility: [facility] Address: [address] [place] [address] Performed By: #### 5 4067-4, CDEIA #### [facility] CLIA [id number] [address] [place] [address] [place] Bilirubin [Mass/Vol] 0.4 mg/dL Normal 0.2-1.3 [facility] Comment on above: Order Comment: Speci men Type: STOOL SPECIMEN Ordering Facility: [facility] Address: [address] [place] [address] Performed By: #### 5 4067-4, CDEIA #### [facility] CLIA [id number] [address] [place] [address] [place] Calcium [Mass/Vol] 9.4 mg/dL Normal 8.5-10.2 [facility] Comment on above: Order Comment: Speci men Type: STOOL SPECIMEN Ordering Facility: [facility] Address: [address] [place] [address] Performed By: #### 5 4067-4, CDEIA #### [facility] CLIA [id number] [address] [id number], [place] [address] [place] Chloride [Moles/Vol] 102 mmol/L Normal 98-107 [facility] Comment on above: Order Comment: Speci men Type: STOOL SPECIMEN Ordering Facility: [facility] Address: [address] [place] [address] Performed By: #### 5 4067-4, CDEIA #### [facility] CLIA [id number] [address] [place] [address] [place] CO2 [Moles/Vol] 23 mmol/L Normal 22-30 [facility] Comment on above: Order Comment: Speci men Type: STOOL SPECIMEN Ordering Facility: [facility] Address: [address] [place] [address] Performed By: #### 5 4067-4, CDEIA #### [facility] CLIA [id number] [address] [place] [address] [place] Creatinine [Mass/Vol] 0.71 mg/dL Normal 0.58-0.96 [facility] Comment on above: Order Comment: Speci men Type: STOOL SPECIMEN Ordering Facility: [facility] Address: [address] [place] [address] Performed By: #### 5 4067-4, CDEIA #### [facility] CLIA [id number] [address] [place] [address] [place] [facility] Creatinine and Glomerular filtration rate.predicted panel (S/P/Bld) 114 mL/min/1.73m??? Normal >=60 [facility] Comment on above: Order Comment: Speci men Type: STOOL SPECIMEN Ordering Facility: [facility] Address: [address] [place] [address] Result Comment: Chely mated Glomerular Filtration Rate [...] Performed By: #### 5 4067-4, CDEIA #### [facility] CLIA [id number] [address] [place] [address] [place] Glucose [Mass/Vol] 121 mg/dL High 74-99 [facility] Comment on above: Order Comment: Speci men Type: STOOL SPECIMEN Ordering Facility: [facility] Address: [address] [place] [address] Result Comment: The [employer] Diabetes Association (ADA) provides guidance for cutoff [...] Standards of Medical Care in Diabetes 2016, British Diabetes Association. Diabetes Care. 2016.39(Suppl 1). Performed By: #### 5 4067-4, CDEIA #### [facility] CLIA [id number] [address] [place] [address] [place] Potassium [Moles/Vol] 3.6 mmol/L Low 3.7-5.1 [facility] Comment on above: Order Comment: Speci men Type: STOOL SPECIMEN Ordering Facility: [facility] Address: [address] [place] [address] Performed By: #### 5 4067-4, CDEIA #### [facility] CLIA [id number] [address] [place] [address] [place] Protein [Mass/Vol] 7.3 g/dL Normal 6.3-8.0 [facility] Comment on above: Order Comment: Speci men Type: STOOL SPECIMEN Ordering Facility: [facility] Address: [address] [place] [address] Performed By: #### 5 4067-4, CDEIA #### [facility] CLIA [id number] [address] [place] [address] [place] Sodium [Moles/Vol] 136 mmol/L Normal 136-144 [facility] Comment on above: Order Comment: Speci men Type: STOOL SPECIMEN Ordering Facility: [facility] Address: [address] [place] [address] Performed By: #### 5 4067-4, CDEIA #### [facility] CLIA [id number] [address] [place] [address] [place] Urea nitrogen [Mass/Vol] 9 mg/dL Normal 7-21 [facility] Comment on above: Order Comment: Speci men Type: STOOL SPECIMEN Ordering Facility: [facility] Address: [address] [place] [address] Performed By: #### 5 4067-4, CDEIA #### [facility] CLIA [id number] [address] [place] [address] [place] Ferritin SerPl-mCncon 2024 Ferritin [Mass/Vol] 392.0 ng/mL High 14.7-205.1 [facility] Comment on above: Order Comment: Speci men Type: STOOL SPECIMEN Ordering Facility: [facility] Address: [address] [place] [address] Performed By: #### 5 4067-4, CDEIA #### [facility] CLIA [id number] [address] [place] [address] [place] US Pelvison 07-10-2024 [...] Read By: Lulú Washburn M.D. 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 XR Ankle - right 3 Viewson 0 07-03-2024 Imaging Result: Three views were taken today AP/MORT/LAT Ankle: No fractures or dislocations seen joint in good position and alignment [facility] Radiology Study observation (narrative) [facility] RECURRENT VAGINITIS (HTRX)on 06-26-2024 ATOPOBIUM VAGINAE 0 [facility] ATOPOBIUM VAGINAE Not detected [facility] BVAB 2,3 (BACTERIAL VAGINOSIS ASSOCIATED BACTERIA 2, 3); MOBILUNCUS SPP 0 [facility] BVAB 2,3 (BACTERIAL VAGINOSIS ASSOCIATED BACTERIA 2, 3); MOBILUNCUS SPP Not detected [facility] SHARIF ALBICANS, PARAPSILOSIS, TROPICALIS 0 [facility] SHARIF ALBICANS, PARAPSILOSIS, TROPICALIS Not detected [facility] SHARIF GLABRATA 0 [facility] SHARIF GLABRATA Not detected [facility] SHARIF KRUSEI 0 [facility] SHARIF KRUSEI Not detected [facility] CHLAMYDIA TRACHOMATIS 0 [facility] CHLAMYDIA TRACHOMATIS Not detected [facility] GARDNERELLA VAGINALIS 0 [facility] GARDNERELLA VAGINALIS Not detected [facility] MEGASPHAERA (TYPES 1, 2) 0 [facility] MEGASPHAERA (TYPES 1, 2) Not detected [facility] MYCOPLASMA GENITALIUM 0 [facility] MYCOPLASMA GENITALIUM Not detected [facility] NEISSERIA GONORRHOEAE 0 [facility] NEISSERIA GONORRHOEAE Not detected [facility] TRICHOMONAS VAGINALIS 0 [facility] TRICHOMONAS VAGINALIS Not detected [facility] MLR HEMOGLOBIN A1Con 025 Glucose [Mass/Vol] 126 mg/dL [facility] HbA1c (Bld) [Mass fraction] 6 % 4.5 - 6.2 % [facility] Comment on above: ADA RECOMMENDED LIMI T 4.0 - 6.0 ADA THERAPEUTIC TARGET < 7.0 ACTION SUGGESTED > 7.0 [facility] ALL CBC WITH AUTO DIFFon BASOPHILS ABSOLUTE AUTO 0 [facility] Basophils/100 WBC (Bld) 0.4 % 0.2 - 2.0 % [facility] Eosinophils/100 WBC (Bld) 4.4 % 0.9 - 7.0 % [facility] Erythrocyte distribution width (RBC) [Ratio] 13.2 % 11.0 - 15.0 % [facility] Hematocrit (Bld) [Volume fraction] 41.6 % 36.0 - 48.0 % [facility] Hemoglobin (Bld) [Mass/Vol] 14 g/dL 12.0 - 16.0 g/dL [facility] IMMATURE GRANULOCYTES ABS AUTO 0.13 High [facility] Immature granulocytes/100 WBC (Bld) 1.6 % High 0.0 - 0.5 % [facility] Interpretation and review of laboratory results Abnormal [facility] LYMPHOCYTES ABSOLUTE AUTO 2.7 [facility] Lymphocytes/100 WBC (Bld) 33.8 % 20.5 - 60.0 % [facility] MCH (RBC) [Entitic mass] 32.6 pg 26.7 - 34.0 pg [facility] MCHC (RBC) [Mass/Vol] 33.7 g/dL 29.9 - 35.2 g/dL [facility] MCV (RBC) [Entitic vol] 96.7 fL 81.0 - 99.0 fL [facility] MONOCYTES ABSOLUTE AUTO 0.5 [facility] Monocytes/100 WBC (Bld) 5.9 % 1.7 - 12.0 % [facility] NEUTROPHILS ABSOLUTE AUTO 4.4 [facility] Neutrophils/100 WBC (Bld) 53.9 % 43.0 - 75.0 % [facility] Platelet mean volume (Bld) [Entitic vol] 10.4 fL 9.5 - 13.5 fL [facility] TBH EO # 0.4 [facility] TBH PLT 257 [facility] RBC 4.3 [facility] WBC 8.1 [facility] C. difficile toxin genes SHEILA +probe Ql (Stl)on 05-23-2024 Interpretation and review of laboratory results Abnormal [facility] CLOSTRIDIUM DIFFICILE TOXIN BY PCRon 05-23-2024 C. difficile toxin genes SHEILA+probe Ql (Stl) Positive Abnormal Negative for C. difficile toxin by PCR [facility] Comment on above: A positive PCR [...] [place] 05-23-2024 HUYEN Telephone (JUDNO) ORION HARPER ([id number]) 1990 F Date Time Provider Department 05/23/24 [...] Status:Closed by BENITO SORIANO on 05/24/[address] [facility] ANES POSTPROC EVALon 025 ANES POSTPROC EVAL HNO ID: [id number] Author: OBED BHATT APRN.CRNA Service: Anesthesiology Author Type: Nurse Manager Department Type: Anesthesia Postprocedure Evaluation Filed: 05/22/2024 14:22 Note Text: POST ANESTHESIA EVALUATION NOTE : 1990 Procedure Summary Date: 05/22/24 Room / Location: Ambulatory Surgery Anesthesia Start: 1345 Anesthesia Stop: 1422 Procedure: COLONOSCOPY DIAGNOSTIC Diagnosis: BRBPR (bright red blood per rectum) (Rectal bleeding) Scheduled Providers: Carol Winn MD; Obed Bhatt APRN.EDUCATION INSTRUCTOR; Millicent Schmitz RN Responsible Provider: Obed Bhatt [...] SIGNATURE: Obed Bhatt APRN.CRNA PATIENT NAME: Orion aHrper DATE: May 22, 2024 TIME: 2:22 PM CSN: [id number] Normal [facility] ANES PRE-OPon 05-22-2024 ANES PRE-OP HNO ID: [id number] Author: OBED BHATT APRN.CRNA Service: Anesthesiology Author Type: Nurse Manager Department Type: Anesthesia Preprocedure Evaluation Filed: 05/22/2024 14:23 [...] May 22, 2024 TIME: 2:22 PM CSN: [id number] Normal [facility] PRE-OP HNO ID: [id number] Author: OBED BHATT APRN.CRNA Service: Anesthesiology Author Type: Nurse Manager Department Type: Anesthesia Preprocedure Evaluation Filed: 05/22/2024 14:21 [...] May 22, 2024 TIME: 2:18 PM CSN: [id number] Normal [facility] C diff Tox gens Stl Ql SHEILA+p robeon 05-22-2024 C. difficile toxin genes SHEILA+probe Ql (Stl) Positive Abnormal Negative for C. difficile toxin by PCR [facility] Comment on above: Order Comment: Rl basilio Type: STOOL SPECIMEN Ordering Facility: [facility] Address: [address] [place] [address] Result Comment: A po sitive PCR result [...] Performed By: #### 5 4067-4, CDEIA #### [facility] CLIA [id number] [address] [place] [address] [place] CLOSTRIDIUM DIFFICILE TOXIN BY EIAon 05-22-2024 C. difficile toxin A+B IA Ql (Stl) Not detected Normal Negative for C. difficile toxin [facility] Comment on above: Order Comment: Rl basilio Type: STOOL SPECIMEN Ordering Facility: [facility] Address: [address] [place] [address] Result Comment: Toxi n EIA is less sensitive than cell cytotoxin and PCR assays. Clinical correlation of PCR positive/toxin EIA negative results is required to distinguish C. difficle colonization from disease. Performed By: #### 5 4067-4, CDEIA #### [facility] CLIA [id number] [address] [place] [address] [place] [facility] COLONOSCOPYon 05-22-2024 [facility] Gastroenterology Gastrointestinal Endoscopy Patient Name: Orion Harper Procedure Date: 05/22/2024 1:40 PM Date of : 1990 Admit Type: Outpatient Age: 33 Room: [facility] 2 Gender: Female Note Status: Finalized Attending MD: Carol Winn MD, [id number] Procedure: Colonoscopy Indications: Rectal bleeding, Change in [...] verified by the physician, the nurse, the studio couch frame builder and the microbiological laboratory technician in the procedure room. Mental Status [...] bowel preparation was evaluated using the BBPS (Drummond Bowel Preparation Scale) with scores of: Right [...] included)... [facility], Radiologist, MD - 05/22/2024 [facility] Gastroenterology Gastrointestinal Endoscopy Patient Name: Orion Harper Procedure Date: 05/22/2024 1:40 PM Date of : 1990 Admit Type: Outpatient Age: 33 Room: [place] [address] Gender: Female Note Status: Finalized Attending MD: Carol Winn MD, [id number] Procedure: Colonoscopy Indications: Rectal bleeding, Change in [...] verified by the physician, the nurse, the studio couch frame builder and the microbiological laboratory technician in the procedure room. Mental Status [...] bowel preparation was evaluated using the BBPS (Drummond Bowel Preparation Scale) with scores of: Right [...] once a da (more content not included)... 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 Mental Status [...] bowel preparation was evaluated using the BBPS (Drummond Bowel Preparation Scale) with scores of: Right [...] scheduled. (more content not included)... Normal [facility] Flexible sigmoidoscopy study on 05-22-2024 [facility] Gastroenterology Gastrointestinal Endoscopy Patient Name: Orion Harper Procedure Date: 05/22/2024 1:40 PM Date of : 1990 Admit Type: Outpatient Age: 33 Room: [facility] 2 Gender: Female Note Status: Finalized Attending MD: Carol Winn MD, [id number] Procedure: Colonoscopy Indications: Rectal bleeding, Change in [...] verified by the physician, the nurse, the studio couch frame builder and the microbiological laboratory technician in the procedure room. Mental Status [...] bowel preparation was evaluated using the BBPS (Drummond Bowel Preparation Scale) with scores of: Right [...] were ph (more content not included)... [facility] Gastrointestinal pathogens i dentified SHEILA+probe Nom (Stl)on 05-22-2024 Campylobacter sp DNA SHEILA+probe Nom (Unsp spec) Not detected Normal Not Detected [facility] Comment on above: Order Comment: Speci men Type: STOOL SPECIMEN Ordering Facility: [facility] Address: [address] [place] [address] Performed By: #### 7 9390-1 #### [facility] CLIA [id number] [address] [place] [address] [place] [address] [place] Salmonella sp DNA SHEILA+probe Ql (Unsp spec) Not detected Normal Not Detected [facility] Comment on above: Order Comment: Speci men Type: STOOL SPECIMEN Ordering Facility: [facility] Address: [address] [place] [address] Performed By: #### 7 9390-1 #### [facility] CLIA [id number] [address] [place] [address] OF [place] Shiga toxin stx gene SHEILA+probe Nom (Unsp spec) Not detected Normal Not Detected [facility] Comment on above: Order Comment: Speci men Type: STOOL SPECIMEN Ordering Facility: [facility] Address: [address] [place] [address] Performed By: #### 7 9390-1 #### [facility] CLIA [id number] [address] [place] [address] [place] Shigella sp DNA SHEILA+probe Ql (Unsp spec) Not detected Normal Not Detected [facility] Comment on above: Order Comment: Speci men Type: STOOL SPECIMEN Ordering Facility: [facility] Address: [address] [place] [address] Performed By: #### 7 9390-1 #### [facility] CLIA [id number] [address] [place] [address] [place] HISTORY PHYSICALon HISTORY PHYSICAL HNO ID: [id number] Author: CAROL WINN MD Service: Gastroenterology Author [...] May 22, 2024 TIME: 1:[address] [facility] [facility] NURSING PROGon 05-22-2024 NURSING PROG HNO ID: [id number] Author: LINDSEY BUCKLEY RN Service: ? Author [...] RN In Department: AMBULATORY SURGERY Normal [facility] No Panel Informationon 05-22 Radiology Study observation (narrative) [facility] SURGICAL PATHOLOGYon [address] [facility] Comment on above: Order Comment: Speci men Type: STOOL SPECIMEN Ordering Facility: [facility] Address: [address] [place] [address] Result Comment: Surg ical Pathology Report Case: [id number] Authorizing Provider: Carol Winn MD Collected: 05/22/2024 02:05 PM Ordering Location: Ambulatory Surgery Received: 05/22/2024 08:39 PM Pathologist: Fe Barnes MD Specimens: A) - Colon, Right, Biopsy, r/o microscopic colitis, r/o inflammation B) - Colon, Left, Biopsy, r/o microscopic colitis, r/o inflammation Performed By: #### 5 4067-4, CDEIA #### [facility] CLIA [id number] [address] [place] [address] [facility] Comment on above: Order Comment: Speci men Type: STOOL SPECIMEN Ordering Facility: [facility] Address: [address] [place] [address] Result Comment: A. C olon, right, biopsy: - Colonic mucosa with no significant pathologic change. B. Colon, left, biopsy: - Colonic mucosa with no significant pathologic change. Performed By: #### 5 4067-4, CDEIA #### [facility] CLIA [id number] [address] [place] [address] OF [place] FINAL PERFORMING LAB Normal [facility] Comment on above: Order Comment: Speci men Type: STOOL SPECIMEN Ordering Facility: [facility] Address: [address] [place] [address] Result Comment: Diag nostic interpretation performed at: [facility], [address] [place] [address] CLIA# [id number] Agronomy Manager: Alhaji Galvez MD Performed By: #### 5 4067-4, PEREZA #### [facility] CLIA [id number] [address] [place] [address] [place] GROSS DESCRIPTION Normal [facility] Comment on above: Order Comment: Speci men Type: STOOL SPECIMEN Ordering Facility: [facility] Address: [address] [place] [address] Result Comment: A. C olon, Right, Biopsy [...] 2024 10:34 PM Gross examination performed at [facility], [address] [place] [address] Performed By: #### 5 4067-4, ETHAN #### [facility] CLIA [id number] [address] [place] [address] [place] XR Ankle - right 3 Viewson 0 05-15-2024 Imaging Result: XRAY: Three views were taken today AP/MORT/LAT Ankle: No fractures or dislocations seen no spurring noted at the lateral ankle ligament complex noted as reported on the MRI [facility] Radiology Study observation (narrative) [facility] ALL CBC WITH AUTO DIFFon BASOPHILS ABSOLUTE AUTO 0 [facility] Basophils/100 WBC (Bld) 0.4 % 0.2 - 2.0 % [facility] Eosinophils/100 WBC (Bld) 2.2 % 0.9 - 7.0 % [facility] Erythrocyte distribution width (RBC) [Ratio] 12.9 % 11.0 - 15.0 % [facility] Hematocrit (Bld) [Volume fraction] 41.2 % 36.0 - 48.0 % [facility] Hemoglobin (Bld) [Mass/Vol] 13.8 g/dL 12.0 - 16.0 g/dL [facility] IMMATURE GRANULOCYTES ABS AUTO 0.19 High [facility] Immature granulocytes/100 WBC (Bld) 1.9 % High 0.0 - 0.5 % [facility] Interpretation and review of laboratory results Abnormal [facility] LYMPHOCYTES ABSOLUTE AUTO 3 [facility] Lymphocytes/100 WBC (Bld) 30.1 % 20.5 - 60.0 % [facility] MCH (RBC) [Entitic mass] 32.7 pg 26.7 - 34.0 pg [facility] MCHC (RBC) [Mass/Vol] 33.5 g/dL 29.9 - 35.2 g/dL [facility] MCV (RBC) [Entitic vol] 97.6 fL 81.0 - 99.0 fL [facility] MONOCYTES ABSOLUTE AUTO 0.7 [facility] Monocytes/100 WBC (Bld) 6.6 % 1.7 - 12.0 % [facility] NEUTROPHILS ABSOLUTE AUTO 5.8 [facility] Neutrophils/100 WBC (Bld) 58.8 % 43.0 - 75.0 % [facility] Platelet mean volume (Bld) [Entitic vol] 10.8 fL 9.5 - 13.5 fL [facility] TBH EO # 0.2 [facility]H PLT 206 [facility] TB RBC 4.22 [facility] WBC 9.9 [facility] CLINISYNC [facility] CNPNon 05-06-2024 [facility] Telephone (CARDMN) ORION HARPER ([id number]) 1990 F Date Time Provider Department 05/06/24 SOLO MORA During your visit today, we recorded the following information about you: Criss Mccrary 05/06/2024 1:41 PM Signed Echo was faxed to Anne-Marie @ [phone] AND scanned into outside ep. Patient is [...] by CRISS MCCRARY on 05/06/[address] [facility] Liver ultrasound attenuation by transient elastographyon 05-02-2024 [...] Int J Clin Exp Med. 2015 Jan 15;8(10):34271-35. PMID: [id number]; PMCID: [id number]. Ruthann Bob, Juan FANTASMA, Rico M, Cosmo F, Tawnya J, Everardo O, Leyla F, Franci M, Alejandro G, Dorie A, Gianna E, Leyla L, French G, Kashmir A, Vicente U, Jodi S, Franc P, Max V, de Kole V, Leena M, Neo MARIE. Refining the Baveno elastography criteria for the definition of compensated advanced chronic liver disease. J Hepatol. 2020;74(5):0575-1561. doi: 10.1016/j.jhep.2020.1 1.050. Ep2019Apr 01. PMID: [id number]. Izabel Bob, Chastity Moran, Martha Bob, Xiao Bob, Joon S, Nuria Roth, Trevin Roth, Trixie Kendrick. AASLD practice guidance on the clinical assessment and management of nonalcoholic fatty liver disease. Hepatology. 2022;77(5):7750-1925. doi:10.1097/HEP.52382 [id number] [facility] Radiology Study observation (narrative) [facility] Radiology Study observation (narrative) [facility] A1AT SerPl-mCncon 04-26-2024 Alpha 1 antitrypsin [Mass/Vol] 123 mg/dL Normal 90-200 [facility] Comment on above: Order Comment: Rl basilio Type: BLOOD SPECIMEN Ordering Facility: [facility] Address: [address] [place] [address] Performed By: #### 1 825-9, 2064-4 #### [facility] CLIA [id number] [address] [place] [address] [place] AFP SerPl-ncon 04-26-2024 AFP [Mass/Vol] 3.01 ng/mL Normal <9.00 [facility] Sachin parry Comment on above: Order Comment: Rl basilio Type: BLOOD SPECIMEN Ordering Facility: [facility] Address: [address] [place] [address] Result Comment: The Alpha-Fetoprotein test was performed using the Sage Unicel DxI immunoenzymatic assay. Results obtained with different assay methods or kits cannot be used interchangeably. Performed By: #### 1 834-1 #### [facility] CLIA [id number] [address] [place] [address] [place] DENY BY IFA WITH REFLEXon Nuclear Ab Ql (S) Negative Normal Negative [facility] Regan zepeda Comment on above: Order Comment: Rl basilio Type: BLOOD SPECIMEN Ordering Facility: [facility] Address: [address] [place] [address] Result Comment: Anti -nuclear antibody test is used as an aid in diagnosis of systemic autoimmune diseases. Where positive and clinically warranted, follow-up using disease-specific testing is recommended. Low positive titers are not uncommon with advanced age, certain chronic infections, and malignancies among others. Test methodology: Indirect fluorescence immunoassay (IFA) using HEp-2 cells. Performed By: #### A NAIFR #### [facility] CLIA [id number] [address] [place] [address] [place] [address] [place] CBC W Auto Differential pane l (Bld)on 04-26-2024 Basophils (Bld) [#/Vol] 0.06 10*3/uL [facility] Differential cell count method Nom (Bld) Auto [facility] Eosinophils (Bld) [#/Vol] [facility] Immature granulocytes (Bld) [#/Vol] 0.33 10*3/uL High [facility] Immature granulocytes/100 WBC (Bld) 2.7 % [facility] Lymphocytes (Bld) [#/Vol] 2.80 10*3/uL [facility] MCH (RBC) [Entitic mass] 32.0 pg 26.0 - 34.0 pg [facility] Monocytes (Bld) [#/Vol] 0.41 10*3/uL [facility] Neutrophils (Bld) [#/Vol] 8.78 10*3/uL High [facility] Nucleated RBC (Bld) [#/Vol] [facility] Nucleated RBC/100 WBC (Bld) [Ratio] 0.0 % /100 WBC [facility] Platelet mean volume (Bld) [Entitic vol] 10.8 fL 9.0 - 12.7 fL [facility] Platelets (Bld) [#/Vol] 271 10*3/uL [facility] WBC (Bld) [#/Vol] 12.39 10*3/uL High [facility] Basophils (Bld) [#/Vol] 0.06 10*3/uL Normal <0.11 [facility] Comment on above: Order Comment: Rl basilio Type: BLOOD SPECIMEN Ordering Facility: [facility] Address: [address] [place] [address] Performed By: #### 1 , 2063-07 #### [facility] CLIA [id number] [address] [place] [address] [place] Basophils/100 WBC (Bld) 0.5 % Normal [facility] Comment on above: Order Comment: Speci men Type: BLOOD SPECIMEN Ordering Facility: [facility] Address: [address] [place] [address] Performed By: #### 1 , 2063-07 #### [facility] CLIA [id number] [address] [place] [address] [place] Differential cell count method Nom (Bld) Auto Normal [facility] Comment on above: Order Comment: Speci men Type: BLOOD SPECIMEN Ordering Facility: [facility] Address: [address] [place] [address] Performed By: #### 1 , 2063-07 #### [facility] CLIA [id number] [address] [place] [address] [place] Eosinophils (Bld) [#/Vol] 10*3/uL Normal <0.46 [facility] Comment on above: Order Comment: Speci men Type: BLOOD SPECIMEN Ordering Facility: [facility] Address: [address] [place] [address] Performed By: #### 1 , 2063-07 #### [facility] CLIA [id number] [address] [place] [address] [place] Eosinophils/100 WBC (Bld) 0.1 % Normal [facility] Comment on above: Order Comment: Speci men Type: BLOOD SPECIMEN Ordering Facility: [facility] Address: [address] [place] [address] Performed By: #### 1 , 2063-07 #### [facility] CLIA [id number] [address] [place] [address] [place] Erythrocyte distribution width (RBC) [Ratio] 12.5 % Normal 11.5-15.0 [facility] Comment on above: Order Comment: Speci men Type: BLOOD SPECIMEN Ordering Facility: [facility] Address: [address] [place] [address] Performed By: #### 1 829, 2063-07 #### [facility] CLIA [id number] [address] [place] [address] [place] Hematocrit (Bld) [Volume fraction] 46.1 % High 36.0-46.0 [facility] Comment on above: Order Comment: Speci men Type: BLOOD SPECIMEN Ordering Facility: [facility] Address: [address] [place] [address] Performed By: #### 1 829, 2063-07 #### [facility] CLIA [id number] [address] [place] [address] [place] Hemoglobin (Bld) [Mass/Vol] 15.5 g/dL Normal 11.5-15.5 [facility] Comment on above: Order Comment: Speci men Type: BLOOD SPECIMEN Ordering Facility: [facility] Address: [address] [place] [address] Performed By: #### 1 8208-30, 2063-07 #### [facility] CLIA [id number] [address] [place] [address] [place] Immature granulocytes (Bld) [#/Vol] 0.33 10*3/uL High <0.10 [facility] Comment on above: Order Comment: Speci men Type: BLOOD SPECIMEN Ordering Facility: [facility] Address: [address] [place] [address] Performed By: #### 1 8208-30, 2063-07 #### [facility] CLIA [id number] [address] [place] [address] [place] Immature granulocytes/100 WBC (Bld) 2.7 % Normal [facility] Comment on above: Order Comment: Speci men Type: BLOOD SPECIMEN Ordering Facility: [facility] Address: [address] [place] [address] Performed By: #### 1 829, 2063-07 #### [facility] CLIA [id number] [address] [place] [address] [place] Lymphocytes (Bld) [#/Vol] 2.80 10*3/uL Normal 1.00-4.00 [facility] Comment on above: Order Comment: Speci men Type: BLOOD SPECIMEN Ordering Facility: [facility] Address: [address] [place] [address] Performed By: #### 1 829, 2063-07 #### [facility] CLIA [id number] [address] [place] [address] [place] Lymphocytes/100 WBC (Bld) 22.6 % Normal [facility] Comment on above: Order Comment: Speci men Type: BLOOD SPECIMEN Ordering Facility: [facility] Address: [address] [place] [address] Performed By: #### 1 829, 2063-07 #### [facility] CLIA [id number] [address] [place] [address] [place] MCH (RBC) [Entitic mass] 32.0 pg Normal 26.0-34.0 [facility] Comment on above: Order Comment: Speci men Type: BLOOD SPECIMEN Ordering Facility: [facility] Address: [address] [place] [address] Performed By: #### 1 8259, 2063-07 #### [facility] CLIA [id number] [address] [place] [address] [place] MCHC (RBC) [Mass/Vol] 33.6 g/dL Normal 30.5-36.0 [facility] Comment on above: Order Comment: Speci men Type: BLOOD SPECIMEN Ordering Facility: [facility] Address: [address] [place] [address] Performed By: #### 1 , 2063-07 #### [facility] CLIA [id number] [address] [place] [address] [place] MCV (RBC) [Entitic vol] 95.1 fL Normal 80.0-100.0 [facility] Comment on above: Order Comment: Speci men Type: BLOOD SPECIMEN Ordering Facility: [facility] Address: [address] [place] [address] Performed By: #### 1 , 2063-07 #### [facility] CLIA [id number] [address] [place] [address] [place] Monocytes (Bld) [#/Vol] 0.41 10*3/uL Normal <0.87 [facility] Comment on above: Order Comment: Speci men Type: BLOOD SPECIMEN Ordering Facility: [facility] Address: [address] [place] [address] Performed By: #### 1 , 2063-07 #### [facility] CLIA [id number] [address] [place] [address] [place] Monocytes/100 WBC (Bld) 3.3 % Normal [facility] Comment on above: Order Comment: Speci men Type: BLOOD SPECIMEN Ordering Facility: [facility] Address: [address] [place] [address] Performed By: #### 1 , 2063-07 #### [facility] CLIA [id number] [address] [place] [address] [place] Neutrophils (Bld) [#/Vol] 8.78 10*3/uL High 1.45-7.50 [facility] Comment on above: Order Comment: Speci men Type: BLOOD SPECIMEN Ordering Facility: [facility] Address: [address] [place] [address] Performed By: #### 1 , 2063-07 #### [facility] CLIA [id number] [address] [place] [address] [place] Neutrophils/100 WBC (Bld) 70.8 % Normal [facility] Comment on above: Order Comment: Speci men Type: BLOOD SPECIMEN Ordering Facility: [facility] Address: [address] [place] [address] Performed By: #### 1 829, 2063-07 #### [facility] CLIA [id number] [address] [place] [address] [place] Nucleated RBC (Bld) [#/Vol] 10*3/uL Normal <0.01 [facility] Comment on above: Order Comment: Speci men Type: BLOOD SPECIMEN Ordering Facility: [facility] Address: [address] [place] [address] Performed By: #### 1 8208-30, 2063-07 #### [facility] CLIA [id number] [address] [place] [address] [place] Nucleated RBC/100 WBC (Bld) [Ratio] 0.0 /100 WBC Normal [facility] Comment on above: Order Comment: Speci men Type: BLOOD SPECIMEN Ordering Facility: [facility] Address: [address] [place] [address] Performed By: #### 1 8208-30, 2063-07 #### [facility] CLIA [id number] [address] [place] [address] [place] Platelet mean volume (Bld) [Entitic vol] 10.8 fL Normal 9.0-12.7 [facility] Comment on above: Order Comment: Speci men Type: BLOOD SPECIMEN Ordering Facility: [facility] Address: [address] [place] [address] Performed By: #### 1 8208-30, 2063-07 #### [facility] CLIA [id number] [address] [place] [address] [place] Platelets (Bld) [#/Vol] 271 10*3/uL Normal 150-400 [facility] Comment on above: Order Comment: Speci men Type: BLOOD SPECIMEN Ordering Facility: [facility] Address: [address] [place] [address] Performed By: #### 1 825-9, 2063-07 #### [facility] CLIA [id number] [address] [place] [address] [place] RBC (Bld) [#/Vol] 4.85 10*6/uL Normal 3.90-5.20 [facility] Comment on above: Order Comment: Speci men Type: BLOOD SPECIMEN Ordering Facility: [facility] Address: [address] [place] [address] Performed By: #### 1 825-9, 2063-07 #### [facility] CLIA [id number] [address] [place] [address] [place] WBC (Bld) [#/Vol] 12.39 10*3/uL High 3.70-11.00 [facility] Comment on above: Order Comment: Speci men Type: BLOOD SPECIMEN Ordering Facility: [facility] Address: [address] [place] [address] Performed By: #### 1 825-9, 2063-07 #### [facility] CLIA [id number] [address] [place] [address] [place] [facility] CBC W AUTO DIFF BLDon [facility] BASOPHILS # BLD AUTO 0.06 [facility] DIFFERENTIAL METHOD BLD Auto [facility] EOSINOPHIL # BLD AUTO <0.03 [facility] LYMPHOCYTES # BLD AUTO 2.8 [facility] MONOCYTES # BLD AUTO 0.41 [facility] NEUTROPHILS # BLD AUTO 8.78 High [facility] NRBC # BLD AUTO <0.01 [facility] NRBC/100 WBC BLD-RTO 0 /100 WBC [facility] PLATELET # BLD AUTO 271 [facility] PMV BLD AUTO 10.8 fL 9.0 - 12.7 fL [facility] WBC # BLD AUTO 12.39 High [facility] IMM GRANULOCYTES # BLD AUTO 0.33 High NINF [facility] IMM GRANULOCYTES/LEUK NFR BLD AUTO 2.7 % [facility] MCH (RBC) [Entitic mass] 32 pg 26.0 - 34.0 pg [facility] Specimen Type: BLOOD SPECIMEN Ordering Facility: [facility] Address: [facility] [place] [address] Original Ordering Provider: ILIANA Alexandra 04-26-2024 CNOV Office Visit (GASTNO ) ORION HARPER ([id number]) 1990 F Date Time Provider Department 04/26/24 [...] do not hesitate to send me a [employer] message or call. FARNAZ Mohr Lauren, PA-C [...] saw Dr. Hylton in 2021 in [facility]. 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 Colonosc (more content not included)... Normal [facility] CNOV Office Visit (ORMDNA ) ORION HARPER ([id number]) 1990 F Date Time Provider Department 04/26/24 [...] plan (more content not included)... Normal [facility] Ceruloplasmin SerPl-mCncon 0 04-26-2024 Ceruloplasmin [Mass/Vol] 27 mg/dL Normal 16-45 [facility] Comment on above: Order Comment: Speci men Type: BLOOD SPECIMEN Ordering Facility: [facility] Address: [address] [place] [address] Performed By: #### 1 825-9, 4-4 #### [facility] CLIA [id number] [address] [place] [address] [place] [address] [place] Comprehensive metabolic 2000 panelon 04-26-2024 Albumin [Mass/Vol] 4.7 g/dL 3.9 - 4.9 g/dL [facility] ALP [Catalytic activity/Vol] 144 U/L High 34 - 123 U/L [facility] ALT [Catalytic activity/Vol] 192 U/L High 7 - 38 U/L [facility] Anion gap [Moles/Vol] 13 mmol/L 8 - 15 mmol/L [facility] AST [Catalytic activity/Vol] 99 U/L High 13 - 35 U/L [facility] Bilirubin [Mass/Vol] 0.3 mg/dL 0.2 - 1 .3 mg/dL [facility] Calcium [Mass/Vol] 9.2 mg/dL 8.5 - 10. 2 mg/dL [facility] Chloride [Moles/Vol] 100 mmol/L 98 - 10 7 mmol/L [facility] CO2 [Moles/Vol] 25 mmol/L 22 - 30 mmol/L [facility] Creatinine [Mass/Vol] 0.58 mg/dL 0.58 - 0.96 mg/dL [facility] GFR/1.73 sq M.predicted among non-blacks MDRD (S/P/Bld) [Vol rate/Area] 121 mL/min/{1.73_m2} - PINF [facility] Comment on above: Estimated Glomerular Filtration [...] [Mass/Vol] 95 mg/dL 74 - 99 mg/dL [facility] Comment on above: The [place] Diabete s Association (ADA) provides guidance for [...] Standards of Medical Care in Diabetes 2016, [place] Diabetes Association. Diabetes Care. 2016.39(Suppl 1). Interpretation and review of laboratory results Abnormal [facility] Potassium [Moles/Vol] 4.0 mmol/L 3.7 - 5.1 mmol/L [facility] Protein [Mass/Vol] 8.0 g/dL 6.3 - 8.0 g/dL [facility] Sodium [Moles/Vol] 138 mmol/L 136 - 144 mmol/L [facility] Urea nitrogen [Mass/Vol] 12 mg/dL 7 - 21 mg/dL [facility] Albumin [Mass/Vol] 4.7 g/dL Normal 3.9-4.9 [facility] Comment on above: Order Comment: Rl basilio Type: BLOOD SPECIMEN Ordering Facility: [facility] Address: [address] [place] [address] Performed By: #### 1 822063-07 #### [facility] CLIA [id number] [address] [place] [address] [place] ALP [Catalytic activity/Vol] 144 U/L High 34-123 [facility] Comment on above: Order Comment: Rl basilio Type: BLOOD SPECIMEN Ordering Facility: [facility] Address: [address] [place] [address] Performed By: #### 1 8262063-07 #### [facility] CLIA [id number] [address] [place] [address] [place] ALT [Catalytic activity/Vol] 192 U/L High 7-38 [facility] Comment on above: Order Comment: Speci men Type: BLOOD SPECIMEN Ordering Facility: [facility] Address: [address] [place] [address] Performed By: #### 1 825-9, 2063-07 #### [facility] CLIA [id number] [address] [place] [address] [place] Anion gap [Moles/Vol] 13 mmol/L Normal 8-15 [facility] Comment on above: Order Comment: Speci men Type: BLOOD SPECIMEN Ordering Facility: [facility] Address: [address] [place] [address] Performed By: #### 1 825-9, 2063-07 #### [facility] CLIA [id number] [address] [place] [address] [place] AST [Catalytic activity/Vol] 99 U/L High 13-35 [facility] Comment on above: Order Comment: Speci men Type: BLOOD SPECIMEN Ordering Facility: [facility] Address: [address] [place] [address] Performed By: #### 1 825-9, 2063-07 #### [facility] CLIA [id number] [address] [place] [address] [place] Bilirubin [Mass/Vol] 0.3 mg/dL Normal 0.2-1.3 [facility] Comment on above: Order Comment: Speci men Type: BLOOD SPECIMEN Ordering Facility: [facility] Address: [address] [place] [address] Performed By: #### 1 825-9, 2063-07 #### [facility] CLIA [id number] [address] [place] [address] [place] Calcium [Mass/Vol] 9.2 mg/dL Normal 8.5-10.2 [facility] Comment on above: Order Comment: Speci men Type: BLOOD SPECIMEN Ordering Facility: [facility] Address: [address] [place] [address] Performed By: #### 1 825-9, 2063-07 #### [facility] CLIA [id number] [address] [place] [address] [place] Chloride [Moles/Vol] 100 mmol/L Normal 98-107 [facility] Comment on above: Order Comment: Speci men Type: BLOOD SPECIMEN Ordering Facility: [facility] Address: [address] [place] [address] Performed By: #### 1 829, 2063-07 #### [facility] CLIA [id number] [address] [place] [address] [place] CO2 [Moles/Vol] 25 mmol/L Normal 22-30 [facility] Comment on above: Order Comment: Speci men Type: BLOOD SPECIMEN Ordering Facility: [facility] Address: [address] [place] [address] Performed By: #### 1 8259, 2063-07 #### [facility] CLIA [id number] [address] [place] [address] [place] Creatinine [Mass/Vol] 0.58 mg/dL Normal 0.58-0.96 [facility] Comment on above: Order Comment: Speci men Type: BLOOD SPECIMEN Ordering Facility: [facility] Address: [address] [place] [address] Performed By: #### 1 825-9, 2063-07 #### [facility] CLIA [id number] [address] [place] [address] [place] Creatinine and Glomerular filtration rate.predicted panel (S/P/Bld) 121 mL/min/1.73m??? Normal >=60 [facility] Comment on above: Order Comment: Speci men Type: BLOOD SPECIMEN Ordering Facility: [facility] Address: [address] [place] [address] Result Comment: Chely mated Glomerular Filtration Rate [...] Performed By: #### 1 8259, 2063-07 #### [facility] CLIA [id number] [address] [place] [address] [place] Glucose [Mass/Vol] 95 mg/dL Normal 74-99 [facility] Comment on above: Order Comment: Rl basilio Type: BLOOD SPECIMEN Ordering Facility: [facility] Address: [address] [place] [address] Result Comment: The British Diabetes Association (ADA) provides guidance for cutoff [...] Standards of Medical Care in Diabetes 2016, British Diabetes Association. Diabetes Care. 2016.39(Suppl 1). Performed By: #### 1 8208-30, 2063-07 #### [facility] CLIA [id number] [address] [place] [address] [place] Potassium [Moles/Vol] 4.0 mmol/L Normal 3.7-5.1 [facility] Comment on above: Order Comment: Rl basilio Type: BLOOD SPECIMEN Ordering Facility: [facility] Address: [address] [place] [address] Performed By: #### 1 8259, 2063-07 #### [facility] CLIA [id number] [address] [place] [address] [place] Protein [Mass/Vol] 8.0 g/dL Normal 6.3-8.0 [facility] Comment on above: Order Comment: Speci men Type: BLOOD SPECIMEN Ordering Facility: [facility] Address: [address] [place] [address] Performed By: #### 1 825-9, 2063-07 #### [facility] CLIA [id number] [address] [place] [address] [place] Sodium [Moles/Vol] 138 mmol/L Normal 136-144 [facility] Comment on above: Order Comment: Speci men Type: BLOOD SPECIMEN Ordering Facility: [facility] Address: [address] [place] [address] Performed By: #### 1 8259, 2063-07 #### [facility] CLIA [id number] [address] [place] [address] [place] Urea nitrogen [Mass/Vol] 12 mg/dL Normal 7-21 [facility] Comment on above: Order Comment: Speci men Type: BLOOD SPECIMEN Ordering Facility: [facility] Address: [address] [place] [address] Performed By: #### 1 8259, 2063-07 #### [facility] CLIA [id number] [address] [place] [address] [place] FERRITINon 04-26-2024 Ferritin [Mass/Vol] 420.9 ng/mL High 14.7 - 2 05.1 ng/mL [facility] Ferritin SerPl-mCncon 2024 Ferritin [Mass/Vol] 420.9 ng/mL High 14.7-205.1 [facility] Comment on above: Order Comment: Speci men Type: BLOOD SPECIMEN Ordering Facility: [facility] Address: [address] [place] [address] Performed By: #### 1 825-9, 2063-07 #### [facility] CLIA [id number] [address] [place] [address] [place] Ferritin [Mass/Vol]on 2024 Interpretation and review of laboratory results Abnormal [facility] HAV IgM Ser Qlon 04-26-2024 HAV IgM Ql (S) Negative Normal Negative [facility] Comment on above: Order Comment: Speci men Type: BLOOD SPECIMEN Ordering Facility: [facility] Address: [address] [place] [address] Result Comment: No e vidence of recent infection with Hepatitis A virus. Performed By: #### 3 1204-1, 31790-5, 5194-3 #### [facility] CLIA [id number] [address] [place] [address] [place] HBV core IgM Ser Qlon 2024 HBV core IgM Ql (S) Negative Normal Negative [facility] Comment on above: Order Comment: Speci men Type: BLOOD SPECIMEN Ordering Facility: [facility] Address: [address] [place] [address] Result Comment: No e vidence of recent infection with Hepatitis B virus. Should recent infection be suspected, repeat testing may be considered 3-4 weeks after this draw. Performed By: #### 3 1204-1, 28522-0, 5194-3 #### [facility] CLIA [id number] [address] [place] [address] [place] HBV surface Ag Ser Qlon HBV surface Ag Ql (S) Negative Normal Negative [facility] Comment on above: Order Comment: Speci men Type: BLOOD SPECIMEN Ordering Facility: [facility] Address: [address] [place] [address] Performed By: #### 3 1204-1, 56867-1, 3 #### [facility] CLIA [id number] [address] [place] [address] [place] HCV Ab Ser Qlon 04-26-2024 HCV Ab Ql (S) Negative Normal Negative [facility] Comment on above: Order Comment: Speci men Type: BLOOD SPECIMEN Ordering Facility: [facility] Address: [address] [place] [address] Result Comment: The result suggests no evidence of active infection with Hepatitis C virus. Should recent infection be suspected, repeat testing may be considered 4-6 weeks after this draw. Performed By: #### 1 6128-1 #### [facility] CLIA [id number] [address] [place] [address] [place] Iron and Iron binding capaci ty panelon 04-26-2024 Interpretation and review of laboratory results Normal [facility] Iron [Mass/Vol] 105 ug/dL 41 - 186 ug/dL [facility] Iron binding capacity [Mass/Vol] 340 ug/dL 232 - 386 ug/dL [facility] Iron/TIBC [Molar ratio] 30.9 % 15.0 - 57.0 % [facility] Iron [Mass/Vol] 105 ug/dL Normal 41-186 [facility] Comment on above: Order Comment: Rl basilio Type: BLOOD SPECIMEN Ordering Facility: [facility] Address: [address] [place] [address] Performed By: #### 1 825-9, 2063-07 #### [facility] CLIA [id number] [address] [place] [address] [place] Iron binding capacity [Mass/Vol] 340 ug/dL Normal 232-386 [facility] Comment on above: Order Comment: Dionicioi men Type: BLOOD SPECIMEN Ordering Facility: [facility] Address: [address] [place] [address] Performed By: #### 1 825-9, 2063-07 #### [facility] CLIA [id number] [address] [place] [address] [place] Iron/TIBC [Molar ratio] 30.9 % Normal 15.0-57.0 [facility] Comment on above: Order Comment: Dionicioi men Type: BLOOD SPECIMEN Ordering Facility: [facility] Address: [address] [place] [address] Performed By: #### 1 , 2063-07 #### [facility] CLIA [id number] [address] [place], [place] [address] [place] [address] [place] Laboratory - Hematology and Cell countson 04-26-2024 Basophils/100 WBC (Bld) 0.5 % [facility] Eosinophils/100 WBC (Bld) 0.1 % [facility] Erythrocyte distribution width (RBC) [Ratio] 12.5 % 11.5 - 15.0 % [facility] Hematocrit (Bld) [Volume fraction] 46.1 % High 36.0 - 46.0 % [facility] Hemoglobin (Bld) [Mass/Vol] 15.5 g/dL 11.5 - 15.5 g/dL [facility] Lymphocytes/100 WBC (Bld) 22.6 % [facility] MCHC (RBC) [Mass/Vol] 33.6 g/dL 30.5 - 36.0 g/dL [facility] MCV (RBC) [Entitic vol] 95.1 fL 80.0 - 100.0 fL [facility] Monocytes/100 WBC (Bld) 3.3 % [facility] Neutrophils/100 WBC (Bld) 70.8 % [facility] RBC (Bld) [#/Vol] 4.85 10*6/uL 3.90 - 5.2 0 m/uL [facility] Mitochondria Ab IF Ql (S)on 04-26-2024 Mitochondria M2 Ab IA Qn (S) 2.8 Units Normal <=20.0 [facility] Comment on above: Order Comment: Specmaribel basilio Type: BLOOD SPECIMEN Ordering Facility: [facility] Address: [address] [place] [address] Performed By: #### 1 , 2063-07 #### [facility] CLIA [id number] [address] [place], [place] [address] [address] [place] Mitochondria M2 Ab Ql (S) Negative Normal Negative [facility] Comment on above: Order Comment: Rl basilio Type: BLOOD SPECIMEN Ordering Facility: [facility] Address: [address] [place] [address] Result Comment: Anti -mitochondrial antibody test is used as an aid in diagnosis of primary biliary cholangitis. Clinical correlation is required. Performed By: #### 1 825-9, 2064-4 #### [facility] CLIA [id number] [address] [place], [place] [address] [place] [address] [place] No Panel Informationon 04-26 [facility] Interpretation and review of laboratory results Abnormal [facility] PT panel Coag (PPP)on 2024 INR Coag (PPP) [Relative time] 0.9 {INR} 0.9 - 1.3 [facility] Comment on above: Vitamin K Antagonist (VKA) Therapeutic Range: INR 2 to 3 (Target INR of 2.5) Note: For patients treated with VKA drugs, such as warfarin, the [employer] 2012 Guideline recommends [...] Chest 2012, 141:7S-47S Lit RA, et al. [facility] 2017, 70: 252-289 Interpretation and review of laboratory results Normal [facility] PT Coag (PPP) [Time] 10.6 s [facility] INR Coag (PPP) [Relative time] 0.9 {INR} Normal 0.9-1.3 [facility] Comment on above: Order Comment: Speci men Type: BLOOD SPECIMEN Ordering Facility: [facility] Address: [address] [place] [address] Result Comment: Maya min K Antagonist (VKA) Therapeutic Range: INR 2 to 3 (Target INR of 2.5) Note: For patients treated with VKA drugs, such as warfarin, the [employer] 2012 Guideline recommends [...] Chest 2012, 141:7S-47S Lit RA, et al. [facility] 2017, 70: 252-289 Performed By: #### 3 4528-0 #### [facility] CLIA [id number] [address] [place] [address] [place] PT Coag (PPP) [Time] 10.6 s Normal 9.7-13.0 [facility] Comment on above: Order Comment: Rl basilio Type: BLOOD SPECIMEN Ordering Facility: [facility] Address: [address] [place] [address] Performed By: #### 3 4528-0 #### [facility] IA [id number] [address] [place] [address] [place] Smooth muscle Ab Ql (S)on ACTIN SMOOTH MUSCLE IGG QUALITATIVE Negative Normal Negative [facility] Comment on above: Order Comment: Rl basilio Type: BLOOD SPECIMEN Ordering Facility: [facility] Address: [address] [place] [address] Performed By: #### 1 8208-30, 2063-07 #### [facility] CLIA [id number] [address] [place] [address] [place] ACTIN SMOOTH MUSCLE IGG QUANTITATIVE 5 Units Normal <20 [facility] Comment on above: Order Comment: Rl basilio Type: BLOOD SPECIMEN Ordering Facility: [facility] Address: [address] [place] [address] Performed By: #### 1 8259, 2063-07 #### [facility] CLIA [id number] [address] [place] [address] [place] ECHOon 04-09-2024 Echocardiography Echocardiography Report: Transthoracic Echo [facility] Date of service: 04/09/2024 3:28:57 PM Ordering physician: SOLO MOAR Indication: Syncope Technologist: Josephine West RD Interpreting [...] * * Final * * * CC [employer] [facility] : [id number] [facility] [place] 04-05-2024 HUYEN Telephone (CARDMN) REJI HARPERSICA A ([id number]) 1990 F Date Time Provider Department 04/05/24 SOLO MORA During your visit today, we recorded the following information about you: [place] 04/05/2024 1:02 PM Signed Outside ep I have a copy @ my desk Criss Velez 04/09/2024 11:49 AM Signed April 09, 2024 Patient Contact Number: [phone] Patient last seen within the last year: Yes 12/15 Reason For Call: Test Results Zio- 12/2023 Physician: Dr. Mora Patient was informed that non-urgent calls may be returned within the next three business days. Yes Joy Dahl RN 04/09/2024 2:14 PM Signed Cardiac clearance and office noted faxed to [facility]. In regards to Zio monitor. Dr [...] Medical Records [[id number]] Cmt: Cardio Clearance [facility] Results [95] Cmt: Zio Prescriptions as [...] by CRISS MCCRARY on 04/05/[address] [facility] HEMOGLOBIN A1con 04-04-2024 HEMOGLOBIN A1c 5.5 % [...] diagnosis of diabetes in children. According to [place] Diabetes Association (ADA) guidelines, hemoglobin A1c <7.0% represents optimal control in non- diabetic patients. Different metrics may apply to specific patient populations. Standards of Medical Care in Diabetes(ADA). Performed By: #### 4 96 733 #### [facility] [address] [employer] Sergeant: Tim Dotson MD POTASSIUMon 04-04-2024 Potassium [Moles/Vol] 3.7 mmol/L Normal 3.5-5.[address] [facility] Comment on above: Order Comment: FASTI NG:YES FASTING: YES Performed By: #### 4 96, 913 #### [facility] [address], [address] [place], [place] [address] [employer] Sergeant: Tim Stark 04-02-2024 CNPN Telephone (CARDMN) ORION HARPER ([id number]) 1990 F Date Time Provider Department 04/02/24 ANASOLO ENNSI JESUS During your visit today, we recorded the following information about you: Criss Mccrary 04/02/2024 3:53 PM Signed This 'Ankle Surgery Clearance' was faxed over to Dr. Giovani Carrillojeane Hagen (PCP) @ [phone] for signing. I spoke with the patient. [...] Received Outside Medical Records [[id number]] Cmt: [facility] Prescriptions as of 04/02/2024 - amphetamine-dextroamp hetamine [...] by CRISS MCCRARY on 04/02/[address] [facility] IGP,APTIMA HPV,AGE GDLNon AGE GDLN ACOG TESTING Note . [facility] Comment on above: TESTS RESULT FLAG UN ITS REF RANGE LAB Clinician Provided Cytology Information Source.............Vagina No. of containers..01 ThinPrep Vial Age Skip FERNANDES Starla... FLAG LEGEND: L-Low Normal,H-High Normal,LL-Alert Low,HH-Alert High <-Panic Low,>-Panic High,A-Abnormal,AA-Critical Abnormal Performed at: 01 =[address] [address] Zoraida Hawkins MD, HPV APTIMA Negative Negative [facility] Comment on above: This nucleic acid am plification test detects fourteen high- risk HPV types (16,18,31,33,35,39,45,51,52,56,58,59,66,68) without differentiation. Performed at: =[address] [id number] Spine Supervisor: Zoraida Hawkins MD, Phone: [phone] Performed at: [address] [id number] Spine Supervisor: Zoraida Hawkins MD, Phone: [phone] IGP, APTIMA HPV, RFX 16/18,45 Note . [facility] Comment on above: TESTS RESULT FLAG UN ITS REF RANGE LAB DIAGNOSIS: 02 NEGATIVE FOR INTRAEPITHELIAL LESION OR MALIGNANCY. Specimen adequacy: 02 Satisfactory for evaluation. Performed by: 02 Zehra Brush, Structural Analysis Engineer (ASCP) . 02 Note: Note 02 The [...] Low,>-Panic High,A-Abnormal,AA-Critical Abnormal Performed at: [address] [address] Zoraida Hawkins MD, SPATULA-ALONE [place] [facility] ALL CBC WITH AUTO DIFFon BASOPHILS ABSOLUTE AUTO 0.0 [facility] Basophils/100 WBC (Bld) 0.4 % 0.2 - 2.0 % [facility] Eosinophils/100 WBC (Bld) 2.8 % 0.9 - 7.0 % [facility] Erythrocyte distribution width (RBC) [Ratio] 12.4 % 11.0 - 15.0 % [facility] Hematocrit (Bld) [Volume fraction] 41.9 % 36.0 - 48.0 % [facility] Hemoglobin (Bld) [Mass/Vol] 14.2 g/dL 12.0 - 16.0 g/dL [facility] IMMATURE GRANULOCYTES ABS AUTO 0.03 [facility] Immature granulocytes/100 WBC (Bld) 0.4 % 0.0 - 0.5 % [facility] LYMPHOCYTES ABSOLUTE AUTO 2.8 [facility] Lymphocytes/100 WBC (Bld) 35.6 % 20.5 - 60.0 % [facility] MCH (RBC) [Entitic mass] 32.1 pg 26.7 - 34.0 pg [facility] MCHC (RBC) [Mass/Vol] 33.9 g/dL 29.9 - 35.2 g/dL [facility] MCV (RBC) [Entitic vol] 94.8 fL 81.0 - 99.0 fL [facility] MONOCYTES ABSOLUTE AUTO 0.5 [facility] Monocytes/100 WBC (Bld) 6.0 % 1.7 - 12.0 % [facility] NEUTROPHILS ABSOLUTE AUTO 4.3 [facility] Neutrophils/100 WBC (Bld) 54.8 % 43.0 - 75.0 % [facility] Platelet mean volume (Bld) [Entitic vol] 10.4 fL 9.5 - 13.5 fL [facility] TBH EO # 0.2 [facility] TBH PLT 265 [facility] TB RBC 4.42 [facility] TB WBC 7.8 [facility] Extra Lavender Tubeon 2022 Extra Lavender Tube Normal [facility] Comment on above: Performed By: #### X LAV, LIVP, LIP #### [facility] [address] [place], [place] [id number] Spine Supervisor: Ronald Pearce MD Lipaseon 03-24-2023 Lipase [Catalytic activity/Vol] 260 U/L High 13-60 [facility] Comment on above: Performed By: #### X LAV, LIVP, LIP #### [facility] [address] [facility] [place], [place] [id number] Spine Supervisor: Ronald Pearce MD Liver Profileon 03-24-2023 Albumin [Mass/Vol] 3.5 g/dL Normal 3.5-5.2 [facility] Comment on above: Performed By: #### X LAV, LIVP, LIP ####[facility] [id number] [facility] [place] [address] Lab Director: Ronald Pearce MD Alkaline Phos 321 U/L High 35-104 [facility] Comment on above: Performed By: #### X LAV, LIVP, LIP ####[facility] [id number] [place] [facility] [place] [phone] Director: Ronald Pearce MD ALT [Catalytic activity/Vol] 137 U/L High 5-33 [facility] Comment on above: Performed By: #### X LAV, LIVP, LIP ####[facility] [id number] [facility] [place] [phone] Director: Ronald Pearce MD AST [Catalytic activity/Vol] 60 U/L High <32 [facility] Comment on above: Performed By: #### X LAV, LIVP, LIP ####[facility] [id number] [facility] [place] [address] Lab Director: Ronald Pearce MD Bilirubin [Mass/Vol] 1.0 mg/dL Normal 0.3-1.2 [facility] Comment on above: Performed By: #### X LAV, LIVP, LIP ####[facility] [address] [place] [address].[place] [address] Lab Director: Ronald Pearce MD Bilirubin, Indirect 0.4 mg/dL Normal 0.0-1.0 [facility] Comment on above: Performed By: #### X LAV, LIVP, LIP ####[facility] [id number] [place] [facility] [place] [phone] Director: Ronald Pearce MD Bilirubin.indirect [Mass/Vol] 0.6 mg/dL High <0.3 [facility] Comment on above: Performed By: #### X LAV, LIVP, LIP ####[facility] [id number] [facility] [place] [address] lab Director: Ronald Pearce MD Protein [Mass/Vol] 5.7 g/dL Low 6.4-8.3 [facility] Comment on above: Performed By: #### X LAV, LIVP, LIP ####[facility] [id number] [place] [address] lab Director: Ronald Pearce MD Extra Lavender Tubeon 2022 Extra Lavender Tube Normal [facility] Comment on above: Performed By: #### L IVP, XLAV ####[facility] [id number] [facility] [place] [address] lab Director: Ronald Pearce MD FL CHOLANGIOGRAM [...] Danny Cole MD 03/23/23 Final result Normal [facility] Liver Profileon 03-23-2023 Albumin [Mass/Vol] 3.5 g/dL Normal 3.5-5.2 [facility] Comment on above: Performed By: #### L IVP, XLAV ####[facility] [id number] [facility] [place] [address] lab Director: Ronald Pearce MD Alkaline Phos 293 U/L High 35-104 [facility] Comment on above: Performed By: #### L IVP, XLAV ####[facility] [id number] [place] [place] [address] Lab Director: Ronald Pearce MD ALT [Catalytic activity/Vol] 111 U/L High 5-33 [facility] Comment on above: Performed By: #### L IVP, XLAV ####[facility] [address] [place] [address] Lab Director: Ronald Pearce MD AST [Catalytic activity/Vol] 43 U/L High <32 [facility] Comment on above: Performed By: #### L IVP, XLAV ####[facility] [address] [place] [address] Lab Director: Ronald Pearce MD Bilirubin [Mass/Vol] 2.6 mg/dL High 0.3-1.2 [facility] Comment on above: Performed By: #### L IVP, XLAV ####[facility] [address] [place] [address] Lab Director: Ronald Pearce MD Bilirubin, Indirect 0.8 mg/dL Normal 0.0-1.0 [facility] Comment on above: Performed By: #### L IVP, XLAV ####[facility] [address] [place] [address] Lab Director: Ronald Pearce MD Bilirubin.indirect [Mass/Vol] 1.8 mg/dL High <0.3 [facility] Comment on above: Performed By: #### L IVP, XLAV ####[facility] [address] [place] [address] Lab Director: Ronald Pearce MD Protein [Mass/Vol] 5.7 g/dL Low 6.4-8.3 [facility] Comment on above: Performed By: #### L IVP, XLAV ####[facility] [address] [place] [address] lab Director: Ronald Pearce MD Surgical Pathology Reporton 03-23-2023 Surgical Pathology Report (NOTE) Path Number: [id number] -- Diagnosis -- A. GALLBLADDER AND CONTENTS, [...] lesions or periductal lymph nodes are identified. Tax Services Manager sections 1c. tm SM/tb1:03/24/2023 Microscopic Description Microscopic examination performed. Processing Lab: [address] [address] Interpretation Performed at [place] [id number] SURGICAL PATHOLOGY CONSULTATION Patient Name: ORION HARPER Med Rec: [id number] [employer] [facility] ANATOMIC PATHOLOGY [address] [place] [address]. [place], [place] [address] Normal [facility] CBC with Diffon 03-22-2023 Abs. Basophil <0.03 Normal 0.00-0.20 [facility] Comment on above: Performed By: #### C DP, LIP, CMPX #### [facility] [address] [place] [address] Spine Supervisor: Ronald Pearce MD #### TRIG #### [address] [address] Spine Supervisor: Elio Marley MD Abs.Imm.Granulocyte 0.03 k/uL Normal 0.00-0.30 [facility] Comment on above: Performed By: #### C DP, LIP, CMPX #### [facility] [address] [place] [address] Spine Supervisor: Ronald Pearce MD #### TRIG #### [address] [address] Spine Supervisor: Elio Marley MD Abs.Neutrophil (Seg) 6.89 k/uL Normal 1.50-8.10 [facility] Comment on above: Performed By: #### C DP, LIP, CMPX #### [facility] [place] [address] Spine Supervisor: Ronald Pearce MD #### TRIG #### [address] [address] Spine Supervisor: Elio Marley MD Basophils/100 WBC (Bld) 0 % Normal 0-2 [facility] Comment on above: Performed By: #### C DP, LIP, CMPX #### [facility] [place] [address] Spine Supervisor: Ronald Pearce MD #### TRIG #### [address] [address] Spine Supervisor: Elio Marley MD Eosinophils (Bld) [#/Vol] 0.07 10*3/uL Normal 0.00-0.44 [facility] Comment on above: Performed By: #### C DP, LIP, CMPX #### [facility] [address] [place] [address] Spine Supervisor: Ronald Pearce MD #### TRIG #### [address] [address] Spine Supervisor: Elio Marley MD Eosinophils/100 WBC (Bld) 1 % Normal 1-4 [facility] Comment on above: Performed By: #### C DP, LIP, CMPX #### [facility] [address] [place] [address] Spine Supervisor: Ronald Pearce MD #### TRIG #### [address] [address] Spine Supervisor: Elio Marley MD Erythrocyte distribution width (RBC) [Ratio] 12.2 % Normal 11.8-14.4 [facility] Comment on above: Performed By: #### C DP, LIP, CMPX #### [facility] [address] [place] [address] Spine Supervisor: Ronald Pearce MD #### TRIG #### [address] [address] Spine Supervisor: Elio Marley MD Hematocrit (Bld) [Volume fraction] 36.9 % Normal 36.3-47.1 [facility] Comment on above: Performed By: #### C DP, LIP, CMPX #### [facility] [address] [place] [address] Spine Supervisor: Ronald Pearce MD #### TRIG #### [address] [address] Spine Supervisor: Elio Marley MD Hemoglobin (Bld) [Mass/Vol] 12.1 g/dL Normal 11.9-15.1 [facility] Comment on above: Performed By: #### C DP, LIP, CMPX #### [facility] [address] [place] [address] Spine Supervisor: Ronald Pearce MD #### TRIG #### [address] [address] Spine Supervisor: Elio Marley MD Immature granulocytes/100 WBC (Bld) 0 % Normal 0 [facility] Comment on above: Performed By: #### C DP, LIP, CMPX #### [facility] [address] [place] [address] Spine Supervisor: Ronald Pearce MD #### TRIG #### [address] [address] Spine Supervisor: Elio Marley MD Lymphocytes (Bld) [#/Vol] 1.62 10*3/uL Normal 1.10-3.70 [facility] Comment on above: Performed By: #### C DP, LIP, CMPX #### [facility] [address] [place] [address] Spine Supervisor: Ronald Pearce MD #### TRIG #### [address] [address] Spine Supervisor: Elio Marley MD Lymphocytes/100 WBC (Bld) 18 % Low 24-43 [facility] Comment on above: Performed By: #### C DP, LIP, CMPX #### [facility] [address] [place] [address] Spine Supervisor: Ronald Pearce MD #### TRIG #### [address] [address] Spine Supervisor: Elio Marley MD MCH (RBC) [Entitic mass] 32.5 pg Normal 25.2-33.5 [facility] Comment on above: Performed By: #### C DP, LIP, CMPX #### [facility] [address] [place] [address] Spine Supervisor: Ronald Pearce MD #### TRIG #### [address] [address] Spine Supervisor: Elio Marley MD MCHC (RBC) [Mass/Vol] 32.8 g/dL Normal 28.4-34.8 [facility] Comment on above: Performed By: #### C DP, LIP, CMPX #### [facility] [address] [place] [address] Spine Supervisor: Ronald Pearce MD #### TRIG #### [address] [address] Spine Supervisor: Elio Marley MD MCV (RBC) [Entitic vol] 99.2 fL Normal 82.6-102.9 [facility] Comment on above: Performed By: #### C DP, LIP, CMPX #### [facility] [address] [place] [address] Spine Supervisor: Ronald Pearce MD #### TRIG #### [address] [address] Spine Supervisor: Elio Marley MD Monocytes (Bld) [#/Vol] 0.57 10*3/uL Normal 0.10-1.20 [facility] Comment on above: Performed By: #### C DP, LIP, CMPX #### [facility] [address] [place] [address] Spine Supervisor: Ronald Pearce MD #### TRIG #### [address] [address] Spine Supervisor: Elio Marley MD Monocytes/100 WBC (Bld) 6 % Normal 3-12 [facility] Comment on above: Performed By: #### C DP, LIP, CMPX #### [facility] [address] [place] [address] Spine Supervisor: Ronald Pearce MD #### TRIG #### [address] [address] Spine Supervisor: Elio Marley MD Neutrophil (Seg) 75 % High 36-65 [facility] Comment on above: Performed By: #### C DP, LIP, CMPX #### [facility] [address] [place] [address] Spine Supervisor: Ronald Pearce MD #### TRIG #### [address] [id number] Spine Supervisor: Elio Marley MD NRBC Automated 0.0 per 100 WBC Normal 0.0 [facility] Comment on above: Performed By: #### C DP, LIP, CMPX #### [facility] [address] [place] [address] Spine Supervisor: Ronald Pearce MD #### TRIG #### [address] [address] Spine Supervisor: Elio Marley MD Platelet mean volume (Bld) [Entitic vol] 10.7 fL Normal 8.1-13.5 [facility] Comment on above: Performed By: #### C DP, LIP, CMPX #### [facility] [address] [place] [address] Spine Supervisor: Ronald Pearce MD #### TRIG #### [address] [address] Spine Supervisor: Elio Marley MD Platelets (Bld) [#/Vol] 188 10*3/uL Normal 138-453 [facility] Comment on above: Performed By: #### C DP, LIP, CMPX #### [facility] [place] [address] Spine Supervisor: Ronald Pearce MD #### TRIG #### [address] [address] Spine Supervisor: Elio Marley MD RBC (Bld) [#/Vol] 3.72 10*6/uL Low 3.95-5.11 [facility] Comment on above: Performed By: #### C DP, LIP, CMPX #### [facility] [address] [place] [address] Spine Supervisor: Ronald Pearce MD #### TRIG #### [address] [address] Spine Supervisor: Elio Marley MD WBC (Bld) [#/Vol] 9.2 10*3/uL Normal 3.5-11.3 [facility] Comment on above: Performed By: #### C DP, LIP, CMPX #### [facility] [address] [place] [address] Spine Supervisor: Ronald Pearce MD #### TRIG #### [address] [address] Spine Supervisor: Elio Marley MD Comp Metabolic Pr/rfx MGon 1 05-22-2022 Albumin [Mass/Vol] 3.5 g/dL Normal 3.5-5.2 [facility] Comment on above: Performed By: #### C DP, LIP, CMPX #### [facility] [address] [place] [address] Spine Supervisor: Ronald Pearce MD #### TRIG #### [address] [address] Spine Supervisor: Elio Marley MD Alkaline Phos 157 U/L High 35-104 [facility] Comment on above: Performed By: #### C DP, LIP, CMPX #### [facility] [address] [place] [address] Spine Supervisor: Ronald Pearce MD #### TRIG #### [address] [address] Spine Supervisor: Elio Marley MD ALT [Catalytic activity/Vol] 131 U/L High 5-33 [facility] Comment on above: Performed By: #### C DP, LIP, CMPX #### [facility] [address] [place] [address] Spine Supervisor: Ronald Pearce MD #### TRIG #### [address] [address] Spine Supervisor: Elio Marley MD Anion gap [Moles/Vol] 11 mmol/L Normal 9-17 [facility] Comment on above: Performed By: #### C DP, LIP, CMPX #### [facility] [address] [place] [address] Spine Supervisor: Ronald Pearce MD #### TRIG #### [address] [address] Spine Supervisor: Elio Marley MD AST [Catalytic activity/Vol] 34 U/L High <32 [facility] Comment on above: Performed By: #### C DP, LIP, CMPX #### [facility] [address] [place] [address] Spine Supervisor: Ronald Pearce MD #### TRIG #### [place] [address] [place] [address] Spine Supervisor: Elio Marley MD Bilirubin [Mass/Vol] 1.9 mg/dL High 0.3-1.2 [facility] Comment on above: Performed By: #### C DP, LIP, CMPX #### [facility] [address] [place] [address] Spine Supervisor: Ronald Pearce MD #### TRIG #### [address] [phone] Spine Supervisor: Elio Marley MD BUN/CRE Ratio 17 Normal 9-20 [facility] Comment on above: Performed By: #### C DP, LIP, CMPX #### [facility] [address] [place] [address] Spine Supervisor: Ronald Pearce MD #### TRIG #### [address] [phone] Spine Supervisor: Elio Marley MD Calcium [Mass/Vol] 8.1 mg/dL Low 8.6-10.4 [facility] Comment on above: Performed By: #### C DP, LIP, CMPX #### [facility] [address] [place] [address] Spine Supervisor: Ronald Pearce MD #### TRIG #### [address] [phone] Spine Supervisor: Elio Marley MD Chloride [Moles/Vol] 105 mmol/L Normal 98-107 [facility] Comment on above: Performed By: #### C DP, LIP, CMPX #### [facility] [address] [place] [address] Spine Supervisor: Ronald Pearce MD #### TRIG #### [address] [address] Spine Supervisor: Elio Marley MD CO2 [Moles/Vol] 21 mmol/L Normal 20-31 [facility] Comment on above: Performed By: #### C DP, LIP, CMPX #### [facility] [address] [place] [address] Spine Supervisor: Ronald Pearce MD #### TRIG #### [address] [address] Spine Supervisor: Elio Marley MD Creatinine [Mass/Vol] 0.6 mg/dL Normal 0.5-0.9 [facility] Comment on above: Performed By: #### C DP, LIP, CMPX #### [facility] [address] [place] [address] Spine Supervisor: Ronald Pearce MD #### TRIG #### [address] [address] Spine Supervisor: Elio Marley MD GFR/1.73 sq M.predicted among non-blacks MDRD (S/P/Bld) [Vol rate/Area] mL/min/{1.73_m2} Normal >60 [facility] Comment on above: Result Comment: These [...] By: #### C DP, LIP, CMPX #### [facility] [address] [place] [address] Spine Supervisor: Ronald Pearce MD #### TRIG #### [address] [address] Spine Supervisor: Elio Marley MD Glucose [Mass/Vol] 75 mg/dL Normal 70-99 [facility] Comment on above: Performed By: #### C DP, LIP, CMPX #### [facility] [address] [place] [address] Spine Supervisor: Ronald Pearce MD #### TRIG #### [address] [address] Spine Supervisor: Elio Marley MD Potassium [Moles/Vol] 4.0 mmol/L Normal 3.7-5.3 [facility] Comment on above: Performed By: #### C DP, LIP, CMPX #### [facility] [address] [place] [address] Spine Supervisor: Ronald Pearce MD #### TRIG #### [address] [address] Spine Supervisor: Elio Marley MD Protein [Mass/Vol] 5.7 g/dL Low 6.4-8.3 [facility] Comment on above: Performed By: #### C DP, LIP, CMPX #### [facility] [address] [place] [address] Spine Supervisor: Ronald Pearce MD #### TRIG #### [address] [address] Spine Supervisor: Elio Marley MD Sodium [Moles/Vol] 137 mmol/L Normal 135-144 [facility] Comment on above: Performed By: #### C DP, LIP, CMPX #### [facility] [address] [place] [address] Spine Supervisor: Ronald Pearce MD #### TRIG #### [place] [address] [place] [address] Spine Supervisor: Elio Marley MD Urea nitrogen [Mass/Vol] 10 mg/dL Normal 6-20 [facility] Comment on above: Performed By: #### C DP, LIP, CMPX #### [facility] [address] [place] [address] Spine Supervisor: Ronald Pearce MD #### TRIG #### [address] [address] Spine Supervisor: Elio Marley MD K (Potassium)on 03-22-2023 Potassium [Moles/Vol] 3.8 mmol/L Normal 3.7-5.3 [facility] Comment on above: Performed By: #### K #### [facility] [address] [place] [address] Spine Supervisor: Ronald Pearce MD Lipaseon 03-22-2023 Lipase [Catalytic activity/Vol] 198 U/L High 13-60 [facility] Comment on above: Performed By: #### C DP, LIP, CMPX #### [facility] [address] [place] [address] Spine Supervisor: Ronald Pearce MD #### TRIG #### [address] [address] Spine Supervisor: Elio Marley MD MRI ABDOMEN WO [...] Daniel Hooker MD 03/22/23 Final result Normal [facility] Triglycerideson 03-22-2023 Triglyceride [Mass/Vol] 102 mg/dL Normal 0-149 [facility] Comment on above: Result Comment: Triglyceride Guidelines: <150 Desirable 150-199 Borderline 200-499 High >499 Very high Based on AHA Guidelines for fasting triglyceride, January 2012. Performed By: #### C DP, LIP, CMPX #### [facility] [address] [place], [place] [phone] Spine Supervisor: Ronald Pearce MD #### TRIG #### [facility] [address] [place], [place] [phone] Spine Supervisor: MD Lincoln Gordillo 03-20-2023 ISABEL Telephone (FVPRAD) ORION HARPER ([id number]) 1990 F Date Time Provider Department 03/20/23 [...] Status:Closed by CHARLETTE CAMPUZANO on 03/20/23 Normal [facility] Ferritin [Mass/volume] in Se rum or PlasmaOrdered By: Erwin Hylton on 10-26-2022 Ferritin [Mass/Vol] 106.5 ng/mL 11.0-306.8 [facility] [place] [facility] NM GASTRIC EMPTYING SOLIDon 09-12-2022 [facility] Stomach Views for gastric emptying solid phase W radionuclide Izabella 09-12-2022 IMPRESSION: EVIDENCE OF DELAYED RATE OF GASTRIC EMPTYING OF SOLID MEAL. ABNORMAL STUDY: 36-50% RETENTION AT 4 HOURS IS CONSISTENT WITH SEVERE GASTROPARESIS. 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 Date/Time: Sep 12 2022 3:02P Dictated by : LUZ MARINA VÁZQUEZ MD This examination was interpreted and the report reviewed and electronically signed by: LUZ MARINA VÁZQEUZ MD on Sep 12 2022 3:05PM [facility] Radiology Study observation (narrative) [facility] Stomach Views for gastric emptying solid phase W radionuclide POOrdered By: Ccf Provider on 09-12-2022 [facility] EGD Study observation Miguelito dominguezmaki 09-02-2022 [facility] Gastroenterology Gastrointestinal Endoscopy Patient Name: Orion Harper Procedure Date: 08/31/2022 2:51 PM Date of : 1990 Admit Type: Outpatient Age: 31 Room: [facility] 2 Gender: Female 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 [employer] [facility] SURGICAL PATHOLOGYOrdered By : Padilla Jasmine on 09-01-2022 Case Report Surgical Pathology Report Case: [id number] Authorizing Provider: Carol Winn MD Collected: 08/31/2022 03:04 PM Ordering Location: Ambulatory Surgery Received: 08/31/2022 09:20 PM Pathologist: Padilla Jasmine MD Specimens: A) - SMALL INTESTINE BIOPSY, r/o celiac B) - ANTRUM (STOMACH) BIOPSY, r/o hpylori C) - STOMACH BIOPSY, gastric body r/o hpylori [facility] Work Phone: Diagnosis Comment e9nbsDEgQUZmfYOuXTCw N StwnfRvJXXlzSAaI4Eltu isURxsIC4hSJ1tqEoqiEF kgZCnGODfPzVpr8bdg271 dOVbd9fcOARPwuepjDi8a FubY34eo0N7VeshU76xuY QlWPY7GVQxESReqDPuJZP gFHO9KVKhdDQyM8vsRNMd KP1vfpagKMdpJWuqQPQjg YI2MIFzcILdM4DlSDXrWI mnEIUujxf0HeMeAx1xyDL yeTcyMFxwYXJkXHBsYWlu CMBgKyZvDYertx6qR08nv AOxGKvzfQrwWVSzt83sj5 apc5IfiU11RDW9TAZvlUv atYFiOUXlfYz6MQY5aYUz TPvrePungDQ2V2m3MCopf HJhZXBpdGhlbGlhbCBseW 1qtW2brKFkc9tmZjVBmKB oNGRfdX2zjX2wxzUzavFc no44FEAzoVuoUDn4MLEcW WNpZmljOyBkaWZmZXJlbn IiIDzuQ09nf2emNKDnkVd dfyWze305tFIskS0gzBEm ZSBsYXRlbnQgIGNlbGlhY wLsmBG0IQhaIFCcgTV7iV QupcQgTUOyPWEcEt4mnKw pMUNTJ2NVMSFqFM5nQUsg MqQhcHzftNQvE0GyxVDnQ U84AKZaqPueLAyhacLqhO RpbmcgSGVsaWNvYmFjdGV uTZG5lU7vvGzeDM1zmrrl g1YtCNElLbGfE93rquQpM KCyTGektCgxj2Teb0zrI3 hkw9F1JFerdq4slIRdsW= = [facility] Work Phone: FINAL DIAGNOSIS h9yseGUwVSHlnWTnKVKp N UakmtKaINCujQDtB8Itby cbGBouXX6hMG2imVbzcUN dvAKqEVUfWoGnk1bah793 iIOpt1sxBSAFykohyIj7b QaxX72yp9M4ZnclT17qpI FuFKG2HYZcLOIsyZFwKAE hUCE5QUWbkKTfQ6rqEAAd GY1wjjtyQIgaOZarVWRdw GM8QSXvpCRdJ8BnUZMfEJ hlJNAjuyz3WgMvXn0hjKU yeTcyMFxwYXJkXHBsYWlu VUWmCyNsDH1pGNVqWVmuY GludGVzdGluZSwgYmlvcH Q4OudpgW1pBR8DyKBcoBK toyRlv3YubcTqGN49U24i MUH2sVAwPF9lql8ncYA3g Zptw6OfRJAjZ9ycsONfuN CqCADxoyYvp0xqZ5m6L8O hdGNoeSBpbmNyZWFzZSBp biBpbnRyYWVwaXRoZWxpY NlmaFynnMltR2g5YTPnbB pnKMmpkE7zTDKvYEOXxS3 yLZJgHHVnidHvdE0aQMLn e9VyjYrkrIcbDOIzHPEjy XXcOaYqrQWlKBO5jX4ikV Rac6EsM1ovqPQiCNGzqf6 hbDPbQBZ3cXKvVJpco3Xi aCFcx9cwgL0pDK3Aq8Jtr Yf7QQXyd0ByVANjaOKaWf WauKUfBDT7oW9efGCkfmd uylebcOTfw03rtx34bSur DOFrcGLzhfuxS5bpdY8sQ EhctcCcZk1xZON5e37lX2 spMIDcZYteBTNkj8FubGe cbGluZSAtSGVsaWNvYmFj eFZwZRV2sU0ceXOty6UpM 8utvLUbEZFkvx2fvXUiIC B1dIUmADndk3SkqPMkm5w xxR1sVQ0Jj8CceCy1DZNf m4KuGQJvcUJkXtXlgKZxX AN2nY2juXVkcgzfhuxvqI Uqx06gwl86uMieXSZzyXC jgylwC9klWSN3 [facility] Work Phone: Gross Description e6czxLAgWZRlmIBHBVIa M VIrHD9qiXegpHj8nCpqST BbbsC0jLArSKupf0yiYRE 8y2yxemDODnvdFNXdSAey JVSxlexpBaV0VOddWZYgv neaQMn7YKyeIUDbfOK7EJ JpjCMnH4HtCBLlJD8bzxs 5MSV1BOrlGONxDmV6CURy LfOxJbnzPYy1EWKirvW5M um2TWKvAEBazYKxz7R4EL bwqzaaQNAqkVRpL473HQu dj6GykSZvNKezvRKuQXIJ GpfdVfgbhHjxk4FkqCKkP GlkIDUxMDAwIFxcbmggXF h7JYZeLGluoVRfYU2mtHc fHbodiWxsj4HytWMaVAfr LSMyGQHxRIiuQKFnZE4HC wAjWDQpQGH8EZtsVaX3HC s9YZFQVsLkGmJiSaHhQDN wWhVmKIr9CKt4YMvDBlQg PHLvTnTiUUHhOfJ9LGjnB yBcXHQgMiBcXGYgQXJpYW ybAQdqgUIwIL9rjWqulDI pbiBBLiBTTUFMTCBJTlRF B4OKHuHtRxfBYVOPIQCct iANClxlcGljTmVzdERvYz EgDQpcbHRycGFyXGxpbjB ccmluMCANClxsdHJjaFxm ynAuQBPgA6ZrutEmBXebU LLqjs9reKspLOWkQXWegG m5pCJuPQAzuDIiEJVei4M qwHOuTNCqi1C9EYZuh5I7 BWJjE0fgOJsvtOisPuI0i yAxLjAgeCAwLjIgeCAwLj FoV46jPADmsBVapBmmb1V ceZl9sQFuEHebOO3aQMMd DOTpOHI5MZ5rkSwbLOKDP lxlcGljTmVzdERvYzBcdj G0HHBrpBSgVTH8AA1gGWY kinfeGCTfAZQfHPJ5XNpz bM56qLZzZPTrHFCfjNAxf VxwbGFpbiANCntcKlxlcG arw9JpzSVsHHzuFAHdAXI rMSosHSLqFR2SJsFeONSq TZG5PHpmKuB5FNm0RQQMZ lMgIiAgMzExNDIyNzQiID w9FFd6KUbWWaLoRQScJkY oVIC6ANP2CAgpWtDfPRGs MiBcXGYgQXJpYWwgXFxmb RVtOR3gyJhshVPcthhiso H2HEJyXOswKRXvZVNGIUA MOGKkZ4GORXVSCQowIwrH UFNZXHBhciANClxlcGljT mVzdERvYzEgDQpcbHRycG FyXGxpbjBccmluMCANClx lsXMynUjvxmMhCLIuH9Qr czFcGDjpQOAeip1iqHslG NEbCEOjyUv1hDImGSHltT RuTKLln0XpnXEdJHUjt5K 5UDPxf7B0KUEzW4cnIGys lTmhRyT2odBuCpPtsSCeE uMedIEsNuNwL64vWRUifF EekTedf8FmiDq5hJByAJu dEB2zZPHgFDIbNST4YL8y bGluZSANClxlcGljTmVzd RDlHaFemqS6REUvhKYlVD T1PO9zQZXghzotCMCiVKN nIXY7PHyufL50wPUgFNGw MTZccGFyfVxwbGFpbiANC xhvAjiwyLwng1AnwFIlBG lkIDUxMDAyIFxcZGIgIE9 NCeMmLXOiLPP4ABmnCoG8 PNh0YWPDYwUiKxLbFtPqL VZzWkVxJDu5TCu2ONyMKq UbVLJxBdZzVQv2LtY1DWz yNyBcXHQgMiBcXGYgQXJp VPnyMInacCVtIB5trDudw KFdzlyjdxP3QEAcBWqzDM UwYVRZW54QK9zwFdxYYRA ZXHBhciANClxlcGljTmVz dERvYzEgDQpcbHRycGFyX GxpbjBccmluMCANClxsdH QvpYtmtwNaCLEzB7RjwfL iSGmqGIMybi5rrOpzHMBh YJPzjAy1wYSeZCRgtFJjE IUpz4LrsSMvJYYmu1J0WR Kpv0E0PBApW9yjVFaniQa vOsF4ajOhEdqqwIHyYuKl cIYeIbPjO09mNDIlbYLbh Ravx1RaaAk8jDMdFIgxYO 0uBEAzWLXtUVO8HI6xiDx iLYRfSKYfpgMBQzhICI2y eSAxMSwgMjAyMyAxOjQxI KFKTS1rvKAyVN0DMNTijm DQEoxbo9NqRFT0NB8ofqB 3wD5iXXKaayVgxz4gCLSm uDWKvXT0ESfmzrLcV3awd lrgVJU4UBFxEFO3Q0zcTF ZVaiMdZLHNkOI0EXftfwA eLW5CYHB6DJk7RGNqhsDH ClxlcGljTmVzdERvYzBcd kC5YBUdhHWfPRI4JH4sJF HpndaoJFGjKNPqQLW4RPt ooT40nDVdSZOtWNXqrAFy oEvksCGmlyGSAgxjcH1nN rYmy9zwyLc4TFTHGleytW HauoawddO5KPUet4tjfRq yd3MidOEjUJ5rnMemvN4y ZnMxNiANCn0= [facility] Work Phone: Performing Lab m8ftsMHnWKOgsKDhOcXt M ZBiENKca1prVGVpyQNoPk EwMzNcZnRuYmpcdWMxXGR rFyAsv7wqa760rOIdo0xa QNApWuZ9rNDdYYOzpHDjG 943RWRkIQyyo0dth6KtKM MsfEOqr7A8IAEZyhptcOn 7iGkcU92bg9N9GkjoW8ee DAOrVDYxC4WnLQ9pYQBqR ds4KAQ7SHN7FKMnONKoE0 ZpXI1tKIXpbBHoHHj4z8y pkXvcHXSdYUC9i0umFJcg nnHzTO6owi1anAt1p9fjb zEgRGVmYXVsdCBQYXJhZ3 KnkJgqUo8fgAu3zVbqLcb uOKS1Kcv0AE6bdt00eqo8 kLivGWKaftdqLrF9MZtkM CLxwqszZMi2AItmLYIjjC O0CTIfbYJhZ1AdYVnzKR0 auwl3KEN5PGuhELMqXcV4 NDBcaGVhZGVyeTcyMFxmb 929FRP4HoOtFZ5jR1Aiv8 F1cN7voWVnFZOaiSViLgM lBUQxfg4faZVtASltw5Ko EFT6chO2kFVkrTFpPDCcR S02Relfm5ToAvuvs6XgK1 5kxGM2CUkjq2aaJF7nQnT 0erJdACytf9azvL9fDaF0 VTukDW0yQH1mNMEwiB6ri mxjXHBnYnJkcmhlYWRccG nfcmLxBs5vxDmjSUZ3CSz xO7ublC1fZtC3MQklL0go lK1oBEh8XOvggLT2YDDms T4rPG9ziaxhl4psJUthZM nqJQJdwyF2keQmGUHcxHO pM3MthN1aSGBuOT6dlbqe j3bzSZK3JIavXIQmKLD8R hRfULDmn4Nkgrw3SkCsl8 MyzYWsQSpmX44hd356KPH rkvAnF8zvaWNqzgzuxEOu hbhiWGusrjX7TFTcVZTqJ WluXGYxXGZzMjJcbGFuZz EwMzNcaGljaFxmMVxkYmN kAXMnCKgrR1wvTjZlFoLr GkOMeONavt2liQsgFIvxv ZObjIWzxAZ1iS0aTBGqyk Mntg9vXZNsrXYJcJC9ZCv hucAmQ9ekcrxcGRK1WXIz GFJ9Q0maEPZUohTsAGJkB KNoqNWjONCQROF3FOF4WS NzDIBOUNSaEWH7BFP7LRL wOTRccGFyXHBhclxwYXJk XHBsYWluXGYwXGZzMjRcc NwkxU3zAdBlRhCgJbpwTW 0xRHXqG4nukHAwPZEtNOP iU3rjXnJqzO1eyXbcTKxr ZjJcZnMyMlxsdHJjaCBMY IOridO7e3L0LIzgbAUsyt xmMVxmczIyXGxhbmcxMDM oKVbsZ7koZwLgWSQhdCof SDxtv6RiBRKuCBZeGzTiS JixWQC0d6Q9TGsiaNUrvd HCXpIBPR4rgYTwkzdrVZ9 ELlxwYXJ9 [facility] Work Phone: [facility] Work Phone: EGD Study observation Narrat iveon 08-31-2022 Radiology Study observation (narrative) [facility] CITRATE URINE 24HRon 023 Citric Acid, U, 24hr 472 mg/24 hr Normal 320-1240 [facility] Comment on above: Result Comment: This test was developed and its performance characteristics determined by [facility]. It has not been cleared or approved by the Food and Drug Administration. Performed By: #### A LPHPHN #### [facility] [address] [address] [address] Li Nagel Citric Acid, Urine 472 mg/L Normal Undefined [facility] Comment on above: Performed By: #### A LPHPHN #### [facility] [address], [place] [address] Dr. Li Nagel OXALATE 24HR URINEon 023 Oxalates, Urine 19 mg/L Normal Undefined [facility] Comment on above: Performed By: #### O X24HR #### [facility] [address] [address] [address] Li Nagel Oxalates, Urine 24hr 19 mg/24 hr Normal 4-31 [facility] Comment on above: Performed By: #### O X24HR #### [facility] [address] [place] [address] Dr. Li Nagel MAGNESIUM 24HR URINEon 07-09 Magnesium 24hr Urine 45.0 mg/24 hr Normal 12.0-293.0 [facility] Comment on above: Performed By: #### I MMUN G #### [facility] [address] [place] [address] Dr. Li Nagel Magnesium UR 4.5 mg/dL Normal Not Estab. [facility] Comment on above: Performed By: #### I MMUN G #### [facility] [address] [place] [address] Dr. Li Nagel PHOSPHORUS 24HR URINEon 06-22 Phosphorus, Urine 51.4 mg/dL Normal Not Estab. [facility] Comment on above: Performed By: #### P HOS 24 #### [facility] [address] [place] [address] Dr. Li Nagel Phosphorus, Urine 24hr 514 mg/24 hr Normal 261-1078 [facility] Comment on above: Performed By: #### P HOS 24 #### [facility] [address] [place] [address] Dr. Li Nagel URIC ACID 24 HR URINEon 06-22 Uric Acid, Urine 64.0 mg/dL Normal Not Estab. [facility] Comment on above: Performed By: #### A LPHPHN #### [facility] [address] [place] [address] Dr. Li Nagel Uric Acid, Urine 24hr 640.0 mg/24 hr Normal 173.7-902. 1 [facility] Comment on above: Performed By: #### A LPHPHN #### [facility] [address] [place] [address] Dr. Li Nagel CALCIUM 24 HR URINEon 2022 CALC, 24 HR UR 155.0 mg/24 hr Normal 100.0-300.0 [facility] Comment on above: Performed By: #### I MMUN G #### [facility] [address] [place] [address] Dr. Li Nagel UR CALCIUM 15.5 mg/dL Normal 5.1-21.0 [facility] Comment on above: Performed By: #### I MMUN G #### [facility] [address] [place] [address] Dr. Li Nagel UR TOT VOL 1000 ml/24 HR Normal [facility] Comment on above: Performed By: #### I MMUN G #### [facility] [address] [place] [address] Dr. Li Nagel Performed By: #### A LPHPHN #### [facility] [address] [place] [address] Dr. Li Nagel CREA 24 HR URINEon 3 CREA, 24 HR UR 1891.80 mg/24 hr Critically high 800.00 -1,800 .00 [facility] Comment on above: Performed By: #### A LPHPHN #### [facility] [address] [place] [address] Dr. Li Nagel URINE CREAT 189.18 mg/dL Normal 20.00-300.00 [facility] Comment on above: Performed By: #### A LPHPHN #### [facility] [address] [place] [address] Dr. Li Nagel PTH INTACTon 07-08-2022 PTH, Intact 41 pg/mL Normal 15-65 [facility] Comment on above: Performed By: #### H EPACUT #### [facility] [address] [place] [address] Dr. Li Nagel SODIUM 24 HR URINEon 023 NA, 24 HR UR 149 mmol/24 hr Normal 40-220 [facility] Comment on above: Performed By: #### A LPHPHN #### [facility] [address] [place] [address] Dr. Li Nagel Sodium (U) [Moles/Vol] 149 mmol/L Critically high 30-90 [facility] Comment on above: Performed By: #### A LPHPHN #### [facility] [address] [place] [address] Dr. Li Nagel BUNon 07-06-2022 Urea nitrogen [Mass/Vol] 11.0 mg/dL Normal 7.0-18.0 [facility] Comment on above: Performed By: #### B UN, URIC, CA, K, NA, CL, CO2, CREA #### [facility] [address] [place] [address] Dr. Li Nagel CALCIUMon 07-06-2022 Calcium [Mass/Vol] 9.0 mg/dL Normal 8.5-10.1 [facility] Comment on above: Performed By: #### B UN, URIC, CA, K, NA, CL, CO2, CREA #### [facility] [address] [place] [address] Dr. Li Nagel CHLORIDEon 07-06-2022 Chloride [Moles/Vol] 107 mmol/L Normal 98-107 [facility] Comment on above: Performed By: #### I MMUN G #### [facility] [address] [place] [address] Dr. Li Nagel CO2on 07-06-2022 CO2 [Moles/Vol] 29.2 mmol/L Normal 21.0-32.0 [facility] Comment on above: Performed By: #### I MMUN G #### [facility] [address] [place] [address] Dr. Li Nagel CREATININEon 07-06-2022 Creatinine [Mass/Vol] 0.97 mg/dL Normal 0.55-1.02 [facility] Comment on above: Performed By: #### B UN, URIC, CA, K, NA, CL, CO2, CREA #### [facility] [address] [place] [address] Dr. Li Nagel EGFR-AF CITIZ[place] >60 Normal >=60 [facility] Comment on above: Performed By: #### B UN, URIC, CA, K, NA, CL, CO2, CREA #### [facility] [address] [place] [address] Dr. Li Nagel EGFR-NON AF CITIZEN OF [place] >60 Normal >=60 [facility] Comment on above: Performed By: #### B UN, URIC, CA, K, NA, CL, CO2, CREA #### [facility] [address] [place] [address] Dr. Li Nagel NAon 07-06-2022 Sodium [Moles/Vol] 143 mmol/L Normal 136-145 [facility] Comment on above: Performed By: #### I MMUN G #### [facility] [address] [place] [address] Dr. Li Nagel POTASSIUMon 07-06-2022 Potassium [Moles/Vol] 3.6 mmol/L Normal 3.5-5.1 [facility] Comment on above: Performed By: #### I MMUN G #### [facility] [address] [place] [address] Dr. Li Nagel URIC ACID SERUMon 07-06-2022 Urate [Mass/Vol] 4.7 mg/dL Normal 2.6-6.0 [facility] Comment on above: Performed By: #### B UN, URIC, CA, K, NA, CL, CO2, CREA #### [facility] [address] [place] [address] Dr. Li Nagel SURGICAL PATHOLOGYOrdered By : Karan Nieto on 07-04-2022 Case Report Surgical Pathology Report Case: [id number] Authorizing Provider: Carol Winn MD Collected: 06/30/2022 11:43 AM Ordering Location: Ambulatory Surgery Received: 06/30/2022 10:42 PM Pathologist: Karan Nieto MD Specimens: A) - DUODENUM BIOPSY, r/o celiac B) - STOMACH BIOPSY, r/o H pylori [facility] Work Phone: Diagnosis Comment i1sutHBqCDAfxVIdMGZk N GdrazQeIOGhvFOeP2Kjtj foIOofRE5dBZ9bvZyytCV kfOAjLSEeCwXae8six391 yUEjx6bgEZGBiihhtCj8k FpwG40ii6G3LnwrB03efN IxNMC7XGXnMUDgcZEnEQG aDTE1MCWllCYkH0ohRTIw QQ8dwpgaIQvyUBwzWVVza VF9PRUlaVCyE5KfUYVtTF liJRZpgkq4NvSvLx7cfQF yeTcyMFxwYXJkXHBsYWlu XMNoVaWpDX3wKE0ghoZuv 2VkIGludHJhZXBpdGhlbG kncNIjwN6lqA3hsZXgvgv kkP9qcWqiNHTgk4ImK2Th w0CmddgaaN90keCyXb0mr n7bsUr5kDTkAIOyTRzvCy Ejh8BzitDfmxSfy0AzE1k ooRcixoV0pFIrEXAmtDlo YyBkaXNlYXNlIGFuZCBvd MhvyfYix14cdUJej14wLQ S2B1txWWXjrXBckJfrMUH xm7Wtl0ErACoyQnOasGdu rzEtcQ0fiGRrjT4gUPmph Gdeq8DoZ0QkulKclJmrel hbtQ3aJVK5eL5zMGjzTU0 kIHNvbWUgbWVkaWNhdGlv eiOwEMAhdT1wJ3PvOXQsm eOpsXJ3sL7kKTqngWziVV Cdhu2brjkpqCGln2Gqh3t lV7qbCHK6qVLeUWYwbONd YhPzC53rk8btDLTjRLAoE dGvmEwflSNlnMu4ISslMC lsTHUaGJ5atJEuxF== [facility] Work Phone: FINAL DIAGNOSIS q3fvnEJlVYWtvUXcPKUd N XtzioZjIZIubAAgK2Vjjt meEDvkHU1xJI5gjXzhnAM muQReBOZqTpIze5hmo493 dICsf6swLWWQwypvqBr6m TnlL51nx7V3XybaP42urT IhAIH4XXEtDEMzxQLcFZA vOOC4CGRfoVMyZ6ewLAFb AQ0oqxxqUChgHRkaCERol WC5XAIvhLZiF7VuXMFgJU bdJRTaxts0UxWsGk3unZR yeTcyMFxwYXJkXHBsYWlu QPZfYnRcAV2vEPQzXOTnu P9vCMAqv7TefQivpVUfYS 5gU96fkRwedZ03LEE3bE1 heUPahBXig3Oks7i5eVIa a4RlDTywhrsfmC66wlEvr lGdyCOgG2S0ooZuQD8zAD jcL0IiAXTfKUUebmDpWJP waXRoZWxpYWwgbHltcGhv X7f4QQE9IDOmJRKwf53cK H19JjsgSDVjuIGlKHBnTA R2g77kY2ktJBZkz2EfmWi kbUBvPQ0rL1FdeYSdWhWy hLgwiLjlUK41J95uBLW8v YPgIKMytg6evPVvCOR2fP LcOGvnlKbna3JvM8UonzF rvOuxdgsuQMOjf6RhZLLf JUIqIOV5qzw5gONkROSjd n0= [facility] Work Phone: Gross Description c7szzRJmJEQzkHUWPYHc M ERaRA2tqEtuyAa1oOktIR ZikfV5zTGhFZogw3klTVP 7m7mjkaLOXurqIRIwVLkv RJNkiqrmHlW8RWywXBQrb ooqRMz4EYnuFHRbuDM8PC CmoJCvY9MrRNOmAI2qtgo 9ITW9ANdeMFYnYqJ9YGIg VnPjQfgdMGn6GNForvP5X dy2PHFyKJEoaEObz4A3ZP aklcgvLUFpgZAnN021GOi ln3PdvSAvMEqhlXHfUEYF TdbaLcpzySgkc3BfwNJuH GlkIDUxMDAwIFxcbmggXF x2SJTxKKvbvJNqMJ1nmAe fElzwrBgwj1DaoDNoQAcw JJHhOIHeEMiiKTYwIY8IE nApRNJ8Xdp2Unm8FcT3DW v1FMXXWfSiDqEzRoorMFK 9MPQsWYt1PIi0SBhCDsT9 WZNbADzvRFBrDQS2DJl6S FxcdCAyIFxcZiBBcmlhbC NuMYAmEEttnhO6GCSwPJb sGEMjDDXON9NGZoOKNIQB C3FJWWxoSVZoUYwjMEQdH 57jc1LNy2AlHE4ZYIr1wr PfwqjmiQ5hLQEfwoImHBz hhIYmY2kyQlEeADDYCSJm uJCjINVmwiVof0ZbZPleb iBhcmUgbXVsdGlwbGUgcG zfT6OjRK9eQZClfdktz74 mlWY7fLQptXRmTTdxbqGp ANUitrdkyW8lBV83AXugL V6dZKncGK7yDKRgMiLFv7 DskSt0KVS1Zk3koKOaUXZ xaiLybaCmY5Vwl5J1jYPy UHtkIGVwF72mc1NYa6BcI MAel8pinQuzo5VkxIIjID xpCZQrnVHmYCyfaE9gTtJ yw9tsyDe6OKblwhF9NKDh ae8mkFlqmZ9kQLq6BZngW FVwB7JuS5KsQRupEOT3NP AwMiBcXGRiICBPVlIgIiA jLhP1JKI6UKKaTIe4SThw Z0WGTGKmTKH9AUl2IXu7Y hJ7MQt7NAZZLj0iHOwtHz m3ERLmKFE0OUe6GOItADD gMiBcXGYgQXJpYWwgXFxm cNKgRQ4czDpqdUMqgezfd tY6KVVyMKldYUJpQKHUR9 1OG4hvTfvBWTLTDVCyuwS NClxlcGljTmVzdERvYzEg DQpcbHRycGFyXGxpbjBcc mluMCANClxsdHJjaFxmcz LaGGIeV7IvwrPsDBgnGFM nyi4llMgiVVGbCRR0x70t kHshW0EkFQ0sPAByytzld 77lwLD7kXUtiLOtGEqvoo WeIIXkwnbkyR5uSP7fHLo iYX2gPBfkJX8jJKEcBgJM h4WoeJh0SOQ3Ir6arQQqZ JRfmmWzlkUhB2Vax9L6qW UuIFxwYXIgDQpccGFyIA0 OF0Xek2LcCOnniJosFIRk p61olWWgAx7cgPZpVGL9D ENsZXZlbGFuZCBDbGluaW ShGHi0NGEpRZSjfAuxGBT 5XI9qQPHtSPDjqMYzGQlj M6rdQXGwGTRnqRFsUK6ZN HBhciANCkpUIDAzLzEwLz LlJkEeEKi1EgVFREptUTK fDSqbWAFhK52pz2NZo6Ip NIHuv1dvlOhfy1BuwJSkU JlvNIHawPTnGIhkhP8cGv Kjs8medDm9ODlhruS0DCH xdi4fhZyhzE2pSJgri0cg CLI0NHUdnUQfgFVoAWouj LhfrI4nKjNnKxl2EZycMD RtL4XdQ2PfuwV5MBDaKHg uXGZzMTYgDQp9 [facility] Work Phone: Performing Lab m5uzhASbWIPsgILpXdIp M IQxOVIbj5czLHBzkFYwFy EwMzNcZnRuYmpcdWMxXGR iUwEqn9jgy155kDInx7iv EIWxNpL0tYVzEEPcpKWeZ 931ONFxVUfcb9efa9UbYG WonOJwx3V4VIJRrbhkdMu 0hUjtW88mg0F8SjzuA0nt KOSeBFKsO3HhGW0vFDTlR dz3EPJ5GZS7LOEkHJYsH0 CiZJ1mQKHnnRLzZRj9y4q guUjlUEOyZBY3j0qdHCot blXgEI4jjq3zxFq0j7spy zEgRGVmYXVsdCBQYXJhZ3 FfnDyoJp5cnEs4tNryWis nZTE4Tvo0FS1cyb47ftx0 bFkdAYJlbbolCrN0JLrtY VYchgqjXVg6FZuaWSVqnQ J8APCooYKhE8SpJObqBW8 juje6YLT0ZMxoLSGgEwO8 NDBcaGVhZGVyeTcyMFxmb 005VKM1YjLpOI8eI2Lmu7 Z3lD9ztMTdOENkpFMkKcO oBOQsqj4opTRmCTrnf3Lt GVM3klB3uXXypVJmPAJnQ C50Jwdfe9FpCjjfe2GtB4 8pqEU5FRrnd4moLS5gEfG 4stXmKLwff0vvfW4hOeY6 CKmaCE0uAX3yRAWcrF8wk mxjXHBnYnJkcmhlYWRccG lkxnToNg0aqMifVES0JFa nD1dgdK8tBpB6ZWkuS9os kF0jHBo8HZtsoDE6YMGnu I8ySH9iuqxsv3ryTCbvML ruZCZllvF5mePgIGQnmFK nC0VhjZ7jYGPhBX9vkjzq r7nvDTY8SAejXXQgLRO0C iNmWJCmm9Zwbqo5YbGup7 LvzQZyAZrxA51ln066MWC dpxGsG4rdlCBjmlgowGSn dvlrFOyyxwI3RXYaSIQhE WluXGYxXGZzMjJcbGFuZz EwMzNcaGljaFxmMVxkYmN eGVKrVJzcL4ioZuPrZvCi DxNRfTNdat9irGxlZQucj JRdxKPpkYZ7dR9xXNHwkp Vdpy2vICRzjXZTwCL3ZDa gxhGaI3slwfolYWL6FBFc CQS3X4rkEFFYdmFbRNEoP SVaoOOgWMSOQVX2XLV1NZ MyYLCDYDYdPIP6RFV5GVN wOTRccGFyXHBhclxwYXJk XHBsYWluXGYwXGZzMjRcc XxenP8cRjCrZaVrCuvkBG 6xUHOuS7rulNQmEGTnXLH xB5fhUgMqeY2rcGdhBSwn ZjJcZnMyMlxsdHJjaCBMY EUjpiD4i6B4FWunlGMggw xmMVxmczIyXGxhbmcxMDM sUIxsS2eqTxHzWKAliZom ZMhaa2QzTZBhZPWnTdJiC BxuBUK6x5R2XNqchFUchm PNIgSFOA0ldRYtcfnvKC9 ELlxwYXJ9 [facility] Work Phone: [facility] Work Phone: EGD Study observation Miguelito bender 06-30-2022 [facility] Gastroenterology Gastrointestinal Endoscopy Patient Name: Orion Harper Procedure Date: 06/30/2022 11:41 AM Date of : 1990 Admit Type: Outpatient Age: 31 Room: [address] [address] Gender: Female Note Status: Finalized Attending MD: [...] verified by the physician, the nurse, the studio couch frame builder and the microbiological laboratory technician in the procedure room at 11:35 [...] gastric ulcers (more content not included)... PROVATION [facility] Radiology Study observation (narrative) [facility] XR KUB 1 VIEWon 06-30-2022 XR [...] by: JACKSON ADKINS Date: 2022-06-30 07:02 Normal [facility] US ABD RT UPPER QUADRANTon 0 06-15-[address] [facility] [address] ABD/PEL WO IVCONon 2022 Radiology Result ACTIONABLE Abnormal [facility] No Panel Informationon 05-27 [facility] ZWONF-5-NGBCOUSUYIF PHENOTYP INGon 05-11-2022 Qjggb-9-Vruvsjjtdrm, Serum 130 mg/dL Normal 100-188 [facility] Comment on above: Result Comment: Perf ormed at: CB Performed By: #### [facility] #### [facility] [address] [place] [address] Dr. Li Nagel Phenotype (PI) MM Normal [facility] Comment on above: Result Comment: Phen otype [...] Performed at: BN Performed By: #### A [facility] #### [facility] [address], [place] [address] Dr. Li Nagel HEREDITARY HEMOCHROMATOSIS, DNA ANALYSISon 05-11-2022 Hereditary Hemochromatosis Comment Normal [facility] Comment on above: Result Comment: Resu lt: c.845G>A (p.Iyv244Wnv) - Not Detected c.187C>G (p.Gbx82Qdc) - Not Detected c.193A>T (p.Uuf04Ptl) - Not Detected Not associated with increased [...] for patients who are homozygous for c.845G>A (p.Pmz388Qhb) and have yet to experience clinical symptoms. . Comments: The most common HFE variants associated with hereditary hemochromatosis are c.845G>A (p.Hzp549Glt), c.187C>G (p.Mnu04Drp), c.193A>T (p.Eog31Dfr). While patients homozygous for c.845G>A (p.Cuf575Lkh) are the most likely to present clinical symptoms, less than 10% develop clinically significant iron overload with tissue and organ damage. . Genetic counseling is recommended to discuss the potential clinical implications of positive results, as well as recommendations for testing family members. Genetic Coordinators are available for health care providers to discuss results at [phone]). . Test Details: Three variants analyzed: c.845G>A (p.Dow717Frz), commonly referred to as C282Y c.187C>G (p.Vds03Rpc), commonly referred to as H63D c.193A>T (p.Mnb26Zvi), commonly referred to as S65C . Methods/Limitations: [...] developed and its performance characteristics determined by [employer]. It has not been cleared or approved by the Food and Drug Administration. . References: Brodie BR, Yoav PC, Deborah KV, Raymond LW, Ramsey ; [employer] Association for the Study of Liver Diseases. Diagnosis and management of hemochromatosis: 2011 practice guideline by the [employer] for the Study of Liver Diseases. Hepatology. 2011 Oct;54(1):328-43. doi: 10.1002/hep.09252. PMID: 91467368; PMCID: WLH3801051. Cora G, Olegario P, Fabio MCDONALD, Tabatha H, Love O, Zev S, Vazquez I, Kofi M, Sunitha S. [facility] best practice guidelines for the molecular genetic diagnosis of hereditary hemochromatosis (HH). Eur J Hum Margaret. 2016 Jul;24(4):479-95. doi: 10.1038/ejhg.2015.128. Epub 2014Oct 29. PMID: 02504485; PMCID: TXR0399691. . Anitra Hager, PhD, [facility] Dm Reyna, PhD Alexandro Rodriguez, PhD, [facility] Jhony Hammond, PhD, [facility] Oumar Avila, PhD, [facility] Rob Brand, PhD, [facility] Pascale Gracia, PhD, [facility] Lala Marvin, PhD, [facility] Performed By: #### H EPACUT #### [facility] [address] [place] [address] Dr. Li Nagel DENY by IFAon 05-06-2022 Antinuclear Antibodies, IFA Negative Normal [facility] Comment on above: Result Comment: Nega tive <1:80 Borderline 1:80 Positive >1:80 ICAP nomenclature: AC-0 For more information about Hep-2 cell patterns use ANApatterns.org, the official website for the International Consensus on Antinuclear Antibody (DENY) Patterns (ICAP). Performed By: #### A LPHPHN #### [facility] [address] [place] [address] Dr. Li Nagel CERULOPLASMINon 05-05-2022 Ceruloplasmin 27.9 mg/dL Normal 19.0-39.0 [facility] Comment on above: Performed By: #### H EPACUT #### [facility] [address] [place] [address] Dr. Li Nagel HEPATITIS A AB IGMon 023 Hep A Ab, IgM Negative Normal Negative [facility] Comment on above: Performed By: #### I MMUN G #### [facility] [address] [place] [address] Dr. Li Nagel IMMUNOGLOBULIN G INDEX SERUM OR CSFon 05-05-2022 Albumin [Mass/Vol] 4.8 g/dL Normal 3.8-4.8 [facility] Comment on above: Performed By: #### I MMUN G #### [facility] [address] [place] [address] Dr. Li Nagel Albumin, CSF NSPINL Normal [facility] Comment on above: Result Comment: Test not performed. No spinal fluid received. contacted Radha at your facility on 05-05-2022 Performed By: #### I MMUN G #### [facility] [address] [place] [address] Dr. Li Nagel CSF IgG Index UPTCAL Normal [facility] Comment on above: Result Comment: Unab le to calculate result since non-numeric result obtained for component test. Performed By: #### I MMUN G #### [facility] [address] [address] [address] Li Nagel IgG, Quant, CSF NSPINL Normal [facility] Comment on above: Result Comment: Test not performed. No spinal fluid received. contacted Radha at your facility on 05-05-2022 Performed By: #### I MMUN G #### [facility] [address] [address] [address] Li Nagel IgG/Alb Ratio, CSF UPTCAL Normal [facility] Comment on above: Result Comment: Unab le to calculate result since non-numeric result obtained for component test. Performed By: #### I MMUN G #### [facility] [address] [place] [address] Dr. Li Nagel Immunoglobulin G, Qn, Serum 971 mg/dL Normal 586-1602 [facility] Comment on above: Performed By: #### I MMUN G #### [facility] [address] [place] [address] Dr. Li Nagel LIVER-KIDNEY MICROSOMAL (LKM ) ABon 05-05-2022 Liver-Kidney Microsomal Ab 1.3 Units Normal 0.0-20.0 [facility] Comment on above: Result Comment: Nega tive 0.0 - 20.0 Equivocal 20.1 - 24.9 Positive >24.9 . LKM type 1 antibodies are detected in patients with autoimmune hepatitis type 2 and in up to 8% of patients with chronic HCV infection. Performed By: #### H EPACUT #### [facility] [address] [place] [address] Dr. Li Nagel MITICHONDRIAL (M2) ANTIBODYo n 05-05-2022 Mitochondrial (M2) Antibody <20.0 Normal 0.0-20.0 [facility] Comment on above: Result Comment: Nega tive 0.0 - 20.0 Equivocal 20.1 - 24.9 Positive >24.9 . Mitochondrial (M2) Antibodies are found in 90-96% of patients with primary biliary cirrhosis. Performed By: #### A LPHPHN #### [facility] [address] [place] [address] Dr. Li Nagel SMOOTH MUSCLE ANTIBODYon Actin (Smooth Muscle) Antibody 9 Units Normal 0-19 [facility] Comment on above: Result Comment: Nega tive 0 - 19 Weak positive 20 - 30 Moderate to strong positive >30 . Actin Antibodies are found in 52-85% of patients with autoimmune hepatitis or chronic active hepatitis and in 22% of patients with primary biliary cirrhosis. Performed By: #### A LPHPHN #### [facility] [address] [place] [address] Dr. Li Nagel FERRITINon 05-03-2022 Ferritin [Mass/Vol] 319.0 ng/mL Critically high 6.2-137.0 [facility] Comment on above: Performed By: #### A LPHPHN #### [facility] [address] [place] [address] Dr. Li Nagel PAP ACOG PANEL 2: 30 to 65on 04-28-2022 . . Normal [facility] Comment on above: Result Comment: Perf ormed at: BA Performed By: #### I MMUN G #### [facility] [address] [place] [address] Dr. Li Nagel Age Gdln ACOG Testing 30-65 Normal [facility] Comment on above: Performed By: #### I MMUN G #### [facility] [address] [place] [address] Dr. Li Nagel DIAGNOSIS: Comment Normal [facility] Comment on above: Result Comment: NEGA TIVE FOR INTRAEPITHELIAL LESION OR MALIGNANCY. Performed at: BA Performed By: #### I MMUN G #### [facility] [address] [place] [address] Dr. Li Nagel HPV Aptima Negative Normal Negative [facility] Comment on above: Result Comment: This nucleic acid amplification test detects fourteen high-risk HPV types (16,18,31,33,35,39,45,51,52,56,58,59,66,68) without differentiation. Performed at: =G Performed By: #### I MMUN G #### [facility] [address] [address] [address] Li Nagel HPV Genotype Reflex Comment Normal [facility] Comment on above: Result Comment: Crit ershira not met, HPV Genotype not performed. Performed at: BA Performed By: #### I MMUN G #### [facility] [address] [address] [address] Li Nagel Methodology: Comment Normal [facility] Comment on above: Result Comment: This liquid based ThinPrep(R) pap test was screened with the use of an image guided system. Performed at: WB Performed By: #### I MMUN G #### [facility] [address] [address] [address] Li Nagel Note: Comment Normal [facility] Comment on above: Result Comment: The Pap [...] Performed By: #### I MMUN G #### [facility] [address] [address] [address] Li Nagel Performed by: Comment Normal [facility] Comment on above: Result Comment: Gretta Holly, Structural Analysis Engineer (ASCP) Performed at: BA Performed By: #### I MMUN G #### [facility] [address] [address] [address] Li Nagel Specimen adequacy: Comment Normal [facility] Comment on above: Result Comment: Sati sfactory for evaluation. No endocervical component is identified. Performed at: BA Performed By: #### I MMUN G #### [facility] [address] [address] [address] Li Nagel HEPATITIS PANEL, ACUTEon HBsAg Screen Negative Normal Negative [facility] Comment on above: Performed By: #### H EPACUT #### [facility] [address] [address] [address] Li Nagel HCV AB <0.1 Normal 0.0-0.9 [facility] Comment on above: Performed By: #### H EPACUT #### [facility] [address], [place] [address] Dr. Li Nagel Hep A Ab, IgM Negative Normal Negative [facility] Comment on above: Performed By: #### H EPACUT #### [facility] [address], [place] [address] Dr. Li Nagel Hep B Core Ab, IgM Negative Normal Negative [facility] Comment on above: Performed By: #### H EPACUT #### [facility] [address], [place] [address] Dr. Li Nagel Interpretation: Comment Normal [facility] Comment on above: Result Comment: Nega tive Not infected with HCV, unless recent infection is suspected or other evidence exists to indicate HCV infection. Performed By: #### H EPACUT #### [facility] [address] [address] [address] Li Nagel US PELVIS AND TRANSVAGon [...] by: LAURIE CRUZ Date: 2021-12-22 09:50 Normal [facility] US ABD RT UPPER QUADRANTon 0 12-10-2021 [facility] US PELVIS AND TRANSVAGon US PELVIS [...] LAURIE CRUZ Date: 2021-10-28 13:01 Normal [facility] VAGINITIS/VAGINOSIS DNA PROB Maki 10-21-2021 Sharif species Negative Normal Negative [facility] Comment on above: Performed By: #### I MMUN G #### [facility] [address] [place] [address] Dr. Li Nagel Gardnerella vaginalis Negative Normal Negative [facility] Comment on above: Performed By: #### I MMUN G #### [facility] [address] [address] [address] Li Nagel Trichomonas vaginalis Negative Normal Negative [facility] Comment on above: Performed By: #### I MMUN G #### [facility] [address] [address] [address] Li Nagel CBC AUTO DIFFon 10-20-2021 BASO # 0.0 103/ul Normal 0.0-0.1 [facility] Comment on above: Performed By: #### A LPHPHN #### [facility] [address] [address] [address] Li Nagel Basophils/100 WBC (Bld) 0.4 % Normal 0.2-2.0 [facility] Comment on above: Performed By: #### A LPHPHN #### [facility] [address] [place] [address] Dr. Li Nagel EO # 0.2 103/ul Normal 0.0-0.7 [facility] Comment on above: Performed By: #### A LPHPHN #### [facility] [address] [place] [address] Dr. Li Nagel Eosinophils/100 WBC (Bld) 2.6 % Normal 0.9-7.0 [facility] Comment on above: Performed By: #### A LPHPHN #### [facility] [address] [place] [address] Dr. Li Nagel Erythrocyte distribution width (RBC) [Ratio] 12.6 % Normal 11.0-15.0 [facility] Comment on above: Performed By: #### A LPHPHN #### [facility] [address] [place] [address] Dr. Li Nagel Hematocrit (Bld) [Volume fraction] 40.0 % Normal 36.0-48.0 [facility] Comment on above: Performed By: #### A LPHPHN #### [facility] [address] [place] [address] Dr. Li Nagel Hemoglobin (Bld) [Mass/Vol] 13.3 g/dL Normal 12.0-16.0 [facility] Comment on above: Performed By: #### A LPHPHN #### [facility] [address] [place] [address] Dr. Li Nagel IG # 0.06 10e3/ul Critically high 0.00-0.03 [facility] Comment on above: Performed By: #### A LPHPHN #### [facility] [address] [place] [address] Dr. Li Nagel IG % 0.9 % Critically high 0.0-0.5 [facility] Comment on above: Performed By: #### A LPHPHN #### [facility] [address] [place] [address] Dr. Li Nagel LYMPH # 2.2 103/ul Normal 1.2-3.8 [facility] Comment on above: Performed By: #### A LPHPHN #### [facility] [address] [place] [address] Dr. Li Nagel Lymphocytes/100 WBC (Bld) 31.0 % Normal 20.5-60.0 [facility] Comment on above: Performed By: #### A LPHPHN #### [facility] [address] [place] [address] Dr. Li Nagel MANUAL DIFF REQ NO Normal [facility] Comment on above: Performed By: #### A LPHPHN #### [facility] [address] [place] [address] Dr. Li Nagel MCH (RBC) [Entitic mass] 31.4 pg Normal 26.7-34.0 [facility] Comment on above: Performed By: #### A LPHPHN #### [facility] [address] [place] [address] Dr. Li Nagel MCHC (RBC) [Mass/Vol] 33.3 g/dL Normal 29.9-35.2 [facility] Comment on above: Performed By: #### A LPHPHN #### [facility] [address] [place] [address] Dr. Li Nagel MCV (RBC) [Entitic vol] 94.3 fL Normal 81.0-99.0 [facility] Comment on above: Performed By: #### A LPHPHN #### [facility] [address] [place] [address] Dr. Li Nagel MONO # 0.5 103/ul Normal 0.3-0.8 [facility] Comment on above: Performed By: #### A LPHPHN #### [facility] [address] [place] [address] Dr. Li Nagel Monocytes/100 WBC (Bld) 6.9 % Normal 1.7-12.0 [facility] Comment on above: Performed By: #### A LPHPHN #### [facility] [address] [place] [address] Dr. Li Nagel NEUT # 4.1 103/ul Normal 1.4-6.5 [facility] Comment on above: Performed By: #### A LPHPHN #### [facility] [address] [address] [address] Li Nagel Neutrophils/100 WBC (Bld) 58.2 % Normal 43.0-75.0 [facility] Comment on above: Performed By: #### A LPHPHN #### [facility] [address] [place] [address] Dr. Li Nagel Platelet mean volume (Bld) [Entitic vol] 11.0 fL Normal 9.5-13.5 [facility] Comment on above: Performed By: #### A LPHPHN #### [facility] [address] [place] [address] Dr. Li Nagel PLT 211 103/ul Normal 150-450 [facility] Comment on above: Performed By: #### A LPHPHN #### [facility] [address] [place] [address] Dr. Li Nagel RBC 4.24 106/ul Normal 4.20-5.40 [facility] Comment on above: Performed By: #### A LPHPHN #### [facility] [address] [place] [address] Dr. Li Nagel WBC 7.0 103/ul Normal 4.0-11.0 [facility] Comment on above: Performed By: #### A LPHPHN #### [facility] [address] [place] [address] ABD/PELV W CONon [...] DOLORES MOON Date: 2021-10-20 14:53 Normal [facility] OCC BLD IMMUNO SCREENon 09-23 OCCULT BLOOD Negative Normal NEGATIVE [facility] Comment on above: Performed By: #### O BSCRN #### [facility] [address] [place] [address] Dr. Li Nagel PROF 14(COMP METB)on 022 Albumin [Mass/Vol] 3.7 g/dL Normal 3.4-5.0 [facility] Comment on above: Performed By: #### A LPHPHN #### [facility] [address] [place] [address] Dr. Li Nagel Albumin/Globulin [Mass ratio] 1.2 {ratio} Normal [facility] Comment on above: Performed By: #### A LPHPHN #### [facility] [address] [place] [address] Dr. Li Nagel ALP [Catalytic activity/Vol] 86 U/L Normal 46-116 [facility] Comment on above: Performed By: #### A LPHPHN #### [facility] [address] [place] [address] Dr. Li Nagel ALT [Catalytic activity/Vol] 109 U/L Critically high 14-59 [facility] Comment on above: Performed By: #### A LPHPHN #### [facility] [address] [place] [address] Dr. Li Nagel Anion gap [Moles/Vol] 7.8 mmol/L Normal [facility] Comment on above: Performed By: #### A LPHPHN #### [facility] [address] [place] [address] Dr. Li Nagel AST [Catalytic activity/Vol] 57 U/L Critically high 15-37 [facility] Comment on above: Performed By: #### A LPHPHN #### [facility] [address] [place] [address] Dr. Li Nagel Bilirubin [Mass/Vol] 0.4 mg/dL Normal 0.2-1.0 [facility] Comment on above: Performed By: #### A LPHPHN #### [facility] [address] [place] [address] Dr. Li Nagel Calcium [Mass/Vol] 8.9 mg/dL Normal 8.5-10.1 [facility] Comment on above: Performed By: #### A LPHPHN #### [facility] [address] [place] [address] Dr. Li Nagel Chloride [Moles/Vol] 104 mmol/L Normal 98-107 [facility] Comment on above: Performed By: #### A LPHPHN #### [facility] [address] [place] [address] Dr. Li Nagel CO2 [Moles/Vol] 27.7 mmol/L Normal 21.0-32.0 [facility] Comment on above: Performed By: #### A LPHPHN #### [facility] [address] [place] [address] Dr. Li Nagel Creatinine [Mass/Vol] 0.78 mg/dL Normal 0.55-1.02 [facility] Comment on above: Performed By: #### A LPHPHN #### [facility] [address] [place] [address] Dr. Li Nagel EGFR-AF CITIZEN [place] >60 Normal >=60 [facility] Comment on above: Performed By: #### A LPHPHN #### [facility] [address] [place] [address] Dr. Li Nagel EGFR-NON AF CITIZEN OF [place] >60 Normal >=60 [facility] Comment on above: Performed By: #### A LPHPHN #### [facility] [address] [place] [address] Dr. Li Nagel Globulin (S) [Mass/Vol] 3.2 g/dL Normal [facility] Comment on above: Performed By: #### A LPHPHN #### [facility] [address] [place] [address] Dr. Li Nagel Glucose [Mass/Vol] 104 mg/dL Normal 74-106 [facility] Comment on above: Performed By: #### A LPHPHN #### [facility] [address] [place] [address] Dr. Li Nagel Potassium [Moles/Vol] 3.5 mmol/L Normal 3.5-5.1 [facility] Comment on above: Performed By: #### A LPHPHN #### [facility] [address] [place] [address] Dr. Li Nagel Protein [Mass/Vol] 6.9 g/dL Normal 6.4-8.[address] [facility] Comment on above: Performed By: #### A LPHPHN #### [facility] [address] [place] [address] Dr. Li Nagel Sodium [Moles/Vol] 136 mmol/L Normal 136-145 [facility] Comment on above: Performed By: #### A LPHPHN #### [facility] [address] [place] [address] Dr. Li Nagel Urea nitrogen [Mass/Vol] 10.0 mg/dL Normal 7.0-18.0 [facility] Comment on above: Performed By: #### A LPHPHN #### [facility] [address] [place] [address] Dr. Li Nagel Urea nitrogen/Creatinine [Mass ratio] 12.8 mg/mg Normal [facility] Comment on above: Performed By: #### A LPHPHN #### [facility] [address] [place] [address] Dr. Li Nagel XR LSPINE MIN 4 [...] by: LAURIE CRUZ Date: 2021-09-06 15:05 Normal [facility] NM HEPATOBILIARY SCAN W EFon 08-27-2021 NM [...] by: JACKSON ADKINS Date: 2021-08-27 16:05 Normal [facility] Comprehensive Metabolic Pane yair 08-20-2021 Albumin [Mass/Vol] 5.0 g/dL Normal 3.6-5.1 [facility] [employer] Comment on above: Performed By: #### C MP #### [facility] [address] [place], [place] [id number] Albumin/Globulin [Mass ratio] 2.1 {ratio} Normal 1.0-2.5 [facility] [employer] Comment on above: Performed By: #### C MP #### [facility] [address] [place], [place] [id number] ALP [Catalytic activity/Vol] 110 U/L Normal 35-119 [place] [employer] Comment on above: Performed By: #### C MP #### [facility] [address] [place], [place] [id number] ALT [Catalytic activity/Vol] 71 U/L High 6-33 [facility] Comment on above: Result Comment: 03/24 Female reference range changed. Performed By: #### C MP #### [facility] [address] [place], [place] [id number] Anion gap [Moles/Vol] 17 mmol/L Normal 12-20 [facility] Comment on above: Result Comment: Effe ctive 04/29/2019 reference range changed. Performed By: #### C MP #### [facility] [address] [place], [place] [id number] AST [Catalytic activity/Vol] 69 U/L High 9-34 [facility] Comment on above: Performed By: #### C MP #### [facility] [address] [facility] [place] [id number] BUN/CREA 11 Ratio Normal 6-22 [facility] Comment on above: Performed By: #### C MP #### [facility] [address] [id number] Calcium [Mass/Vol] 9.8 mg/dL Normal 8.6-10.2 [facility] Comment on above: Performed By: #### C MP #### [facility] [address] [id number] Chloride [Moles/Vol] 99 mmol/L Normal 98-107 [facility] Comment on above: Performed By: #### C MP #### [facility] [address] [place], [place] [id number] CO2 [Moles/Vol] 25 mmol/L Normal 20-31 [facility] Comment on above: Performed By: #### C MP #### [facility] [address] [place], [place] [id number] Creatinine [Mass/Vol] 0.9 mg/dL Normal 0.6-1.4 [facility] Comment on above: Performed By: #### C MP #### [facility] [address] [place], [place] [id number] eGFRAA 94 mL/min/1.73m2 Normal >60 [facility] Comment on above: Performed By: #### C MP #### [facility] [address] [place], [place] [id number] eGFRNAA 78 mL/min/1.73m2 Normal >60 [facility] Comment on above: Performed By: #### C MP #### [facility] [address] [place], [place] [id number] Globulin (S) [Mass/Vol] 2.4 g/dL Normal 1.9-3.7 [facility] Comment on above: Performed By: #### C MP #### [facility] [address] [place], [place] [id number] Glucose [Mass/Vol] 100 mg/dL High 65-99 [facility] Comment on above: Result Comment: For FASTING Glucose --- ADA reference ranges: Normal 65-99 mg/dl Prediabetes 100-125 Diabetes >/= 126 Performed By: #### C MP #### [facility] [address] [place], [place] [id number] Potassium [Moles/Vol] 3.8 mmol/L Normal 3.5-5.5 [facility] Comment on above: Performed By: #### C MP #### [facility] [address] [place], [place] [id number] Protein [Mass/Vol] 7.4 g/dL Normal 6.1-8.1 [facility] Comment on above: Performed By: #### C MP #### [facility] [address] [place], [place] [id number] Sodium [Moles/Vol] 137 mmol/L Normal 135-146 [facility] Comment on above: Performed By: #### C MP #### [facility] [address] [place], [place] [id number] TBIL <0.3 Normal [facility] Comment on above: Performed By: #### C MP #### [facility] [address] [place], [place] [id number] Urea nitrogen [Mass/Vol] 10 mg/dL Normal 7-25 [facility] Comment on above: Performed By: #### C MP #### [facility] [address] [place], [place] [id number] US SINGLE QUAD RT UPPERon US SINGLE [...] JACKSON ADKINS Date: 2021-08-16 08:19 Normal [facility] Complete Blood Count with Au to Diffon 08-06-2021 Basophils (Bld) [#/Vol] 0.03 10*3/uL Normal 0.00-0.20 [facility] [employer] Comment on above: Performed By: #### C MP, CBCAD, LIPD #### [facility] [address] [place], [place] [id number] Basophils/100 WBC (Bld) 0.4 % Normal [facility] [employer] Comment on above: Performed By: #### C MP, CBCAD, LIPD #### [facility] [address] [place], [place] [id number] Eosinophils (Bld) [#/Vol] 0.11 10*3/uL Normal 0.02-0.50 [facility] [employer] Comment on above: Performed By: #### C MP, CBCAD, LIPD #### [facility] [address] [place], [place] [id number] Eosinophils/100 WBC (Bld) 1.4 % Normal [facility] Comment on above: Performed By: #### C MP, CBCAD, LIPD #### [facility] [address] [place], [place] [id number] Erythrocyte distribution width (RBC) [Ratio] 12.6 % Normal 11.0-15.0 [facility] [employer] Comment on above: Performed By: #### C MP, CBCAD, LIPD #### [facility] [address] [place], [place] [id number] Hematocrit (Bld) [Volume fraction] 44.2 % Normal 35.0-47.0 [facility] Comment on above: Performed By: #### C MP, CBCAD, LIPD #### [facility] [address] [place], [place] [id number] Hemoglobin (Bld) [Mass/Vol] 14.8 g/dL Normal 11.6-15.5 [facility] Comment on above: Performed By: #### C MP, CBCAD, LIPD #### [facility] [address] [place], [place] [id number] Lymphocytes (Bld) [#/Vol] 2.2 10*3/uL Normal 0.9-3.9 [facility] Comment on above: Performed By: #### C MP, CBCAD, LIPD #### [facility] [address] [place], [place] [id number] Lymphocytes/100 WBC (Bld) 28.1 % Normal [facility] Comment on above: Performed By: #### C MP, CBCAD, LIPD #### [facility] [address] [place], [place] [id number] MCH (RBC) [Entitic mass] 31.2 pg Normal 27.0-33.0 [facility] Comment on above: Performed By: #### C MP, CBCAD, LIPD #### [facility] [address] [place], [place] [id number] MCHC (RBC) [Mass/Vol] 33.5 g/dL Normal 32.0-36.0 [facility] Comment on above: Performed By: #### C MP, CBCAD, LIPD #### [facility] [address] [place], [place] [id number] MCV (RBC) [Entitic vol] 93 fL Normal 80-100 [facility] Comment on above: Performed By: #### C MP, CBCAD, LIPD #### [facility] [address] [place], [place] [id number] Monocytes (Bld) [#/Vol] 0.4 10*3/uL Normal 0.2-0.9 [facility] Comment on above: Performed By: #### C MP, CBCAD, LIPD #### [facility] [address] [place], [place] [id number] Monocytes/100 WBC (Bld) 4.8 % Normal [facility] Comment on above: Performed By: #### C MP, CBCAD, LIPD #### [facility] [address] [place], [place] [id number] Neutrophils (Bld) [#/Vol] 5.1 10*3/uL Normal 1.5-7.8 [facility] Comment on above: Performed By: #### C MP, CBCAD, LIPD #### [facility] [address] [place], [place] [id number] Neutrophils/100 WBC (Bld) 64.3 % Normal [facility] Comment on above: Performed By: #### C MP, CBCAD, LIPD #### [facility] [address] [place], [place] [id number] Platelet mean volume (Bld) [Entitic vol] 11.00 fL Normal 7.50-12.50 [facility] Comment on above: Performed By: #### C MP, CBCAD, LIPD #### [facility] [address] [place], [place] [id number] Platelets (Bld) [#/Vol] 296 10*3/uL Normal 140-400 [facility] Comment on above: Performed By: #### C MP, CBCAD, LIPD #### [facility] [address] [place], [place] [id number] RBC (Bld) [#/Vol] 4.74 10*6/uL Normal 3.90-5.20 [facility] Comment on above: Performed By: #### C MP, CBCAD, LIPD #### [facility] [address] [place], [place] [id number] RDW-SD 43.4 fL Normal 37.0-50.0 [facility] [employer] Comment on above: Performed By: #### C MP, CBCAD, LIPD #### [facility] [address] [place], [place] [id number] WBC (Bld) [#/Vol] 8.0 10*3/uL Normal 3.8-11.0 [facility] rn [place] [employer] Comment on above: Performed By: #### C MP, CBCAD, LIPD #### [facility] [address] [place], [place] [id number] Comprehensive Metabolic Pane yair 08-06-2021 Albumin [Mass/Vol] 5.2 g/dL High 3.6-5.1 [facility] [place] [employer] Comment on above: Performed By: #### C MP, CBCAD, LIPD #### [facility] [address] [place], [place] [id number] Albumin/Globulin [Mass ratio] 2.1 {ratio} Normal 1.0-2.5 [facility] [employer] Comment on above: Performed By: #### C MP, CBCAD, LIPD #### [facility] [address] [place], [place] [id number] ALP [Catalytic activity/Vol] 115 U/L Normal 35-119 [facility] [employer] Comment on above: Performed By: #### C MP, CBCAD, LIPD #### [facility] [address] [place], [place] [id number] ALT [Catalytic activity/Vol] 101 U/L High 6-33 [facility] [employer] Comment on above: Result Comment: 03/24 Female reference range changed. Performed By: #### C MP, CBCAD, LIPD #### [facility] [address] [place], [place] [id number] Anion gap [Moles/Vol] 20 mmol/L Normal 12-20 [facility] Comment on above: Result Comment: Effe ctive 04/29/2019 reference range changed. Performed By: #### C MP, CBCAD, LIPD #### [facility] [address] [place], [place] [id number] AST [Catalytic activity/Vol] 96 U/L High 9-34 [facility] Comment on above: Performed By: #### C MP, CBCAD, LIPD #### [facility] [address] [place], [place] [id number] BUN/CREA 9 Ratio Normal 6-22 [facility] Comment on above: Performed By: #### C MP, CBCAD, LIPD #### [facility] [address] [place], [place] [id number] Calcium [Mass/Vol] 9.9 mg/dL Normal 8.6-10.2 [facility] Comment on above: Performed By: #### C NORBERTO, CBCAD, LIPD #### [facility] [address] [place], [place] [id number] Chloride [Moles/Vol] 106 mmol/L Normal 98-107 [facility] Comment on above: Performed By: #### C MP, CBCAD, LIPD #### [facility] [address] [place], [place] [id number] CO2 [Moles/Vol] 21 mmol/L Normal 20-31 [facility] Comment on above: Performed By: #### C MP, CBCAD, LIPD #### [facility] [address] [place], [place] [id number] Creatinine [Mass/Vol] 0.9 mg/dL Normal 0.6-1.4 [facility] Comment on above: Performed By: #### C MP, CBCAD, LIPD #### [facility] [address] [place], [place] [id number] eGFRAA 90 mL/min/1.73m2 Normal >60 [facility] Comment on above: Performed By: #### C MP, CBCAD, LIPD #### [facility] [address] [place], [place] [id number] eGFRNAA 74 mL/min/1.73m2 Normal >60 [facility] Comment on above: Performed By: #### C MP, CBCAD, LIPD #### [facility] [address] [place], [place] [id number] Globulin (S) [Mass/Vol] 2.5 g/dL Normal 1.9-3.7 [facility] Comment on above: Performed By: #### C MP, CBCAD, LIPD #### [facility] [address] [place], [place] [id number] Glucose [Mass/Vol] 127 mg/dL High 65-99 [facility] Comment on above: Result Comment: For FASTING Glucose --- ADA reference ranges: Normal 65-99 mg/dl Prediabetes 100-125 Diabetes >/= 126 Performed By: #### C MP, CBCAD, LIPD #### [facility] [address] [address] [place], [place] [id number] Potassium [Moles/Vol] 4.2 mmol/L Normal 3.5-5.5 [facility] Comment on above: Performed By: #### C MP, CBCAD, LIPD #### [facility] [address] [place], [place] [id number] Protein [Mass/Vol] 7.7 g/dL Normal 6.1-8.1 [facility] Comment on above: Performed By: #### C MP, CBCAD, LIPD #### [facility] [address] [place], [place] [id number] Sodium [Moles/Vol] 143 mmol/L Normal 135-146 [facility] Comment on above: Performed By: #### C MP, CBCAD, LIPD #### [facility] [address] [place], [place] [id number] TBIL <0.3 Normal [facility] Comment on above: Performed By: #### C MP, CBCAD, LIPD #### [facility] [address] [place], [place] [id number] Urea nitrogen [Mass/Vol] 8 mg/dL Normal 7-25 [facility] Comment on above: Performed By: #### C MP, CBCAD, LIPD #### [facility] [address] [place], [place] [id number] Hemoglobin A1Con 08-06-2021 EAG 99.67 Normal [facility] Comment on above: Performed By: #### A 1C #### [facility] [address] [place], [place] [id number] HbA1c (Bld) [Mass fraction] 5.1 % Normal 4.0-6.0 [facility] Comment on above: Performed By: #### A 1C #### [facility] [address] [place], [place] [id number] Lipid Panelon 08-06-2021 Cholesterol [Mass/Vol] 190 mg/dL Normal 125-200 [facility] Comment on above: Result Comment: Low risk < 200mg/dL Borderline risk 201-239 mg/dl High risk > or equal to 240 Performed By: #### C MP, CBCAD, LIPD #### [facility] [address] [place], [place] [id number] Cholesterol in HDL [Mass/Vol] 64 mg/dL Normal >40 [facility] Comment on above: Result Comment: High Cardiovascular Risk HDL <40 mg/dL Low Cardiovascular Risk HDL > or equal to 60 mg/dl Performed By: #### C MP, CBCAD, LIPD #### [facility] [address] [place], [place] [id number] Cholesterol in LDL [Mass/Vol] 107 mg/dL Normal [facility] Comment on above: Result Comment: LDL ATP III CLASSIFICATION LDL less than 100 mg/dl Optimal LDL 100-129 mg/dl Near or above optimal LDL 130-159 Borderline high LDL 160-189 High LDL greater than 189 mg/dl Very High Performed By: #### C MP, CBCAD, LIPD #### [facility] [address] [place], [place] [id number] Cholesterol in VLDL [Mass/Vol] 19 mg/dL Normal [facility] Comment on above: Performed By: #### C MP, CBCAD, LIPD #### [facility] [address] [place], [place] [id number] Cholesterol.total/Chol esterol in HDL [Mass ratio] 3 {ratio} Normal [facility] Comment on above: Performed By: #### C MP, CBCAD, LIPD #### [facility] [address] [place], [place] [id number] Triglyceride [Mass/Vol] 95 mg/dL Normal 30-150 [facility] Comment on above: Result Comment: TRIG ATPIII CLASSIFICATIONS TRIG less than 150 mg/dl Normal TRIG 150-199 mg/dl Borderline High TRIG 200-500 mg/dl High TRIG greather than 500 mg/dl Very High Performed By: #### C MP, CBCAD, LIPD #### [facility] [address] [place], [place] [id number] Q - CULTURE,URINE,ROUTINEon 06-04-2021 CULTURE, URINE, ROUTINE SEE NOTE Normal [facility] [employer] Comment on above: Order Comment: [facility] performed at: [employer], [facility], [address] [facility], [address] [place], [address], Agronomy Manager: Tim Dotson MD [facility] Collection Date/Time: [facility] Results Received Date/Time: [facility] Reported Date/Time: [id number] Result Comment: CULT URE, URINE, ROUTINE Micro Number: [id number] Test Status: Final Specimen Source: Not given Specimen Quality: Adequate Result: Mixed genital marie isolated. These superficial bacteria are not indicative of a urinary tract infection. No further organism identification is warranted on this specimen. If clinically indicated, recollect clean-catch, mid-stream urine and transfer immediately to Urine Culture Transport Tube. Performed By: #### [id number] #### [facility] Default [address] [place] [address] MRI LUMBAR SPINE WO CONTRAST on 11-06-2018 [...] Naren Lagos MD 11/06/18 Final result Normal [facility] Vital Signs Date Time Vital Sign Value Performing Clinician Facility 01-06-2025 11:01-0400 Body height 157.5 cm Giovani Hagen MD Work Phone: [facility] 01-06-2025 11:01-0400 Body mass index (BMI) [Ratio] 38.78 kg/m2 Giovani Hagen MD Work Phone: [facility] 01-06-2025 11:01-0400 Body weight 96.16 kg Giovani Hagen MD Work Phone: [facility] 01-06-2025 11:01-0400 Diastolic blood pressure 62 mm[Hg] Giovani Hagen MD Work Phone: [facility] 01-06-2025 11:01-0400 Heart rate 90 /min Giovani Hagen MD Work Phone: [facility] 01-06-2025 11:01-0400 Respiratory rate 16 /min Giovani Hagen MD Work Phone: [facility] 01-06-2025 11:01-0400 SaO2% (BldA) [Mass fraction] 97 % Giovani Hagen MD Work Phone: [facility] 01-06-2025 11:01-0400 Systolic blood pressure 106 mm[Hg] Giovani Hagen MD Work Phone: [facility] 12-30-2024 13:46-0400 Body height 157.5 cm Milton Fraire DPM FACFAS Work Phone: [facility] 12-30-2024 13:46-0400 Body mass index (BMI) [Ratio] 37.68 kg/m2 Milton Fraire DPM FACFAS Work Phone: [facility] 12-30-2024 13:46-0400 Body weight 93.44 kg Milton Fraire DPM FACFAS Work Phone: [facility] 12-30-2024 13:46-0400 Diastolic blood pressure 74 mm[Hg] Milton Fraire DPM FACFAS Work Phone: [facility] 12-30-2024 13:46-0400 Heart rate 91 /min Milton Fraire DPM FACFAS Work Phone: [facility] 12-30-2024 13:46-0400 Systolic blood pressure 115 mm[Hg] Milton Fraire DPM FACFAS Work Phone: [facility] 12-30-2024 09:14-0400 Body mass index (BMI) [Ratio] 36.28 kg/m2 Emma Reaper MANAGING EDITOR.SALESPERSON HEARING AIDS Work Phone: [facility] 12-30-2024 09:14-0400 Body weight 92.9 kg Emma Reaper MANAGING EDITOR.SALESPERSON HEARING AIDS Work Phone: [facility] 12-30-2024 09:14-0400 Diastolic blood pressure 94 mm[Hg] Emma Reaper MANAGING EDITOR.SALESPERSON HEARING AIDS Work Phone: [facility] 12-30-2024 09:14-0400 Systolic blood pressure 132 mm[Hg] Emma Reaper MANAGING EDITOR.SALESPERSON HEARING AIDS Work Phone: [facility] 12-26-2024 13:17-0400 Body height 157.5 cm Jatin Cabrera MD Work Phone: [facility] 12-26-2024 13:17-0400 Body mass index (BMI) [Ratio] 37.68 kg/m2 Jatin Cabrera MD Work Phone: [facility] 12-26-2024 13:17-0400 Body weight 93.44 kg Jatin Cabrera MD Work Phone: [facility] 12-26-2024 13:17-0400 Diastolic blood pressure 72 mm[Hg] Jatin Cabrera MD Work Phone: [facility] 12-26-2024 13:17-0400 Systolic blood pressure 110 mm[Hg] Jatin Cabrera MD Work Phone: [facility] 12-16-2024 09:45-0400 Body height 157.5 cm Giovani Hagen MD Work Phone: [facility] 12-16-2024 09:45-0400 Body mass index (BMI) [Ratio] 36.76 kg/m2 Giovani Hagen MD Work Phone: [facility] 12-16-2024 09:45-0400 Body weight 91.17 kg Giovani Hagen MD Work Phone: [facility] 12-16-2024 09:45-0400 Diastolic blood pressure 68 mm[Hg] Giovani Hagen MD Work Phone: [facility] 12-16-2024 09:45-0400 Heart rate 93 /min Giovani Hagen MD Work Phone: [facility] 12-16-2024 09:45-0400 SaO2% (BldA) [Mass fraction] 98 % Giovani Hagen MD Work Phone: [facility] 12-16-2024 09:45-0400 Systolic blood pressure 108 mm[Hg] Giovani Hagen MD Work Phone: [facility] 12-13-2024 10:18-0400 Body height 157.5 cm Milton Fraire DPM FACFAS Work Phone: [facility] 12-13-2024 10:18-0400 Body mass index (BMI) [Ratio] 36.76 kg/m2 Milton Dolce DPM FACFAS Work Phone: [facility] 12-13-2024 10:18-0400 Body weight 91.17 kg Milton Dolce DPM FACFAS Work Phone: [facility] 12-13-2024 10:18-0400 Diastolic blood pressure 75 mm[Hg] Milton Dolce DPM FACFAS Work Phone: [facility] 12-13-2024 10:18-0400 Heart rate 88 /min Milton Dolce DPM FACFAS Work Phone: [facility] 12-13-2024 10:18-0400 Systolic blood pressure 115 mm[Hg] Milton Fraire DPM FACFAS Work Phone: [facility] 12-12-2024 10:38-0400 Body height 157.5 cm Sandy Hemmer PA Work Phone: [facility] 12-12-2024 10:38-0400 Body mass index (BMI) [Ratio] 36.62 kg/m2 Sandy Hemmer PA Work Phone: [facility] 12-12-2024 10:38-0400 Body weight 90.81 kg Sandy Hemmer PA Work Phone: [facility] 12-12-2024 10:38-0400 Diastolic blood pressure 76 mm[Hg] Sandy Hemmer PA Work Phone: [facility] 12-12-2024 10:38-0400 Heart rate 89 /min Sandy Hemmer PA Work Phone: [facility] 12-12-2024 10:38-0400 Respiratory rate 16 /min Sandy Hemmer PA Work Phone: [facility] 12-12-2024 10:38-0400 SaO2% (BldA) [Mass fraction] 98 % Sandy Hemmer PA Work Phone: [facility] 12-12-2024 10:38-0400 Systolic blood pressure 112 mm[Hg] Sandy Hemmer PA Work Phone: [facility] 10-10-2024 12:31-0400 Body height 157.5 cm Shannon Navarroi BEHAVIORIST Work Phone: [facility] 10-10-2024 12:31-0400 Body mass index (BMI) [Ratio] 35.3 kg/m2 Shannon Rodrigueziani BEHAVIORIST Work Phone: [facility] 10-10-2024 12:31-0400 Body weight 87.54 kg Shannon Navarroi BEHAVIORIST Work Phone: [facility] 10-09-2024 13:00-0400 Body mass index (BMI) [Ratio] 33.83 kg/m2 Mario Harper MANAGING EDITOR.SALESPERSON HEARING AIDS Work Phone: [facility] 10-09-2024 13:00-0400 Body weight 86.64 kg Mario Harper MANAGING EDITOR.SALESPERSON HEARING AIDS Work Phone: [facility] 10-09-2024 13:00-0400 Diastolic blood pressure 76 mm[Hg] Mario Harper MANAGING EDITOR.SALESPERSON HEARING AIDS Work Phone: [facility] 10-09-2024 13:00-0400 Heart rate 106 /min Mario Harper MANAGING EDITOR.SALESPERSON HEARING AIDS Work Phone: [facility] 10-09-2024 13:00-0400 SaO2% (BldA) [Mass fraction] 99 % Mario Harper MANAGING EDITOR.SALESPERSON HEARING AIDS Work Phone: [facility] 10-09-2024 13:00-0400 Systolic blood pressure 112 mm[Hg] Mario Harper MANAGING EDITOR.SALESPERSON HEARING AIDS Work Phone: [facility] 10-08-2024 11:42-0400 Body height 157.5 cm Deena Lyn BEHAVIORIST Work Phone: [facility] 10-08-2024 11:42-0400 Body mass index (BMI) [Ratio] 34.75 kg/m2 Deena Lyn BEHAVIORIST Work Phone: [facility] 10-08-2024 11:42-0400 Body weight 86.18 kg Deena Lyn BEHAVIORIST Work Phone: [facility] 10-08-2024 11:42-0400 Diastolic blood pressure 88 mm[Hg] Deena Lyn BEHAVIORIST Work Phone: [facility] 10-08-2024 11:42-0400 Heart rate 110 /min Deena Lyn BEHAVIORIST Work Phone: [facility] 10-08-2024 11:42-0400 Respiratory rate 16 /min Deena Lyn BEHAVIORIST Work Phone: [facility] 10-08-2024 11:42-0400 SaO2% (BldA) [Mass fraction] 99 % Deena Lyn BEHAVIORIST Work Phone: [facility] 10-08-2024 11:42-0400 Systolic blood pressure 134 mm[Hg] Deena Adak BEHAVIORIST Work Phone: [facility] 09-25-2024 10:25-0400 Body height 157.5 cm Deena Riki BEHAVIORIST Work Phone: [facility] 09-25-2024 10:25-0400 Body mass index (BMI) [Ratio] 35.74 kg/m2 Deena Adak BEHAVIORIST Work Phone: [facility] 09-25-2024 10:25-0400 Body weight 88.63 kg Deena Riki BEHAVIORIST Work Phone: [facility] 09-25-2024 10:25-0400 Diastolic blood pressure 72 mm[Hg] Deena Riki BEHAVIORIST Work Phone: [facility] 09-25-2024 10:25-0400 Heart rate 94 /min Deena Riki BEHAVIORIST Work Phone: [facility] 09-25-2024 10:25-0400 Respiratory rate 17 /min Deena Riki BEHAVIORIST Work Phone: [facility] 09-25-2024 10:25-0400 SaO2% (BldA) [Mass fraction] 97 % Deena Riki BEHAVIORIST Work Phone: [facility] 09-25-2024 10:25-0400 Systolic blood pressure 110 mm[Hg] Deena Adak BEHAVIORIST Work Phone: [facility] 09-17-2024 [id number] Body height 157.5 cm Sandy Hemmer PA Work Phone: [facility] 09-17-2024 11:11-0400 Body mass index (BMI) [Ratio] 35.26 kg/m2 Sandy Hemmer PA Work Phone: [facility] 09-17-2024 [id number] Body weight 87.45 kg Sandy Hemmer PA Work Phone: [facility] 09-17-2024 11:11-0400 Diastolic blood pressure 76 mm[Hg] Sandy Hemmer PA Work Phone: [facility] 09-17-2024 11:11-0400 Heart rate 75 /min Sandy Hemmer PA Work Phone: [facility] 09-17-2024 11:11-0400 Respiratory rate 16 /min Sandy Hemmer PA Work Phone: [facility] 09-17-2024 11:11-0400 SaO2% (BldA) [Mass fraction] 99 % Sandy Hemmer PA Work Phone: [facility] 09-17-2024 11:11-0400 Systolic blood pressure 112 mm[Hg] Sandy Hemmer PA Work Phone: [facility] 09-10-2024 13:37-0400 Body height 157.5 cm Giovani Hagen MD Work Phone: [facility] 09-10-2024 13:37-0400 Body mass index (BMI) [Ratio] 34.93 kg/m2 Giovani Hagen MD Work Phone: [facility] 09-10-2024 13:37-0400 Body weight 86.64 kg Giovani Hagen MD Work Phone: [facility] 09-10-2024 13:37-0400 Diastolic blood pressure 72 mm[Hg] Giovani Hagen MD Work Phone: [facility] 09-10-2024 13:37-0400 Heart rate 88 /min Giovani Hagen MD Work Phone: [facility] 09-10-2024 13:37-0400 SaO2% (BldA) [Mass fraction] 98 % Giovani Hagen MD Work Phone: [facility] 09-10-2024 13:37-0400 Systolic blood pressure 118 mm[Hg] Giovani Hagen MD Work Phone: [facility] 09-04-2024 16:21-0400 Body height 157.5 cm Milton Dolce DPM FACFAS Work Phone: [facility] 09-04-2024 16:21-0400 Body mass index (BMI) [Ratio] 33.65 kg/m2 Milton Adryanbran DPM FACFAS Work Phone: [facility] 09-04-2024 16:21-0400 Body weight 83.46 kg Milton Adryanbran DPM FACFAS Work Phone: [facility] 09-04-2024 16:21-0400 Diastolic blood pressure 80 mm[Hg] Milton Eloina DPM FACFAS Work Phone: [facility] 09-04-2024 16:21-0400 Heart rate 87 /min Milton Eloina DPM FACFAS Work Phone: [facility] 09-04-2024 16:21-0400 Systolic blood pressure 131 mm[Hg] Milton Fraire DPM FACFAS Work Phone: [facility] 09-02-2024 15:13-0400 Body height 157.5 cm Giovani Hagen MD Work Phone: [facility] 09-02-2024 15:13-0400 Body mass index (BMI) [Ratio] 33.65 kg/m2 Giovani Hagen MD Work Phone: [facility] 09-02-2024 15:13-0400 Body weight 83.46 kg Giovani Hagen MD Work Phone: [facility] 09-02-2024 15:13-0400 Diastolic blood pressure 82 mm[Hg] Giovani Hagen MD Work Phone: [facility] 09-02-2024 15:13-0400 Heart rate 113 /min Giovani Hagen MD Work Phone: [facility] 09-02-2024 15:13-0400 SaO2% (BldA) [Mass fraction] 97 % Giovani Hagen MD Work Phone: [facility] 09-02-2024 15:13-0400 Systolic blood pressure 132 mm[Hg] Giovani Hagen MD Work Phone: [facility] 08-21-2024 16:14-0400 Body height 157.5 cm Milton Adryanbran DPM FACFAS Work Phone: [facility] 08-21-2024 16:14-0400 Body mass index (BMI) [Ratio] 34.2 kg/m2 Milton Adryanbran DPM FACFAS Work Phone: [facility] 08-21-2024 16:14-0400 Body weight 84.82 kg Milton Eloina DPM FACFAS Work Phone: [facility] 08-21-2024 16:14-0400 Diastolic blood pressure 80 mm[Hg] Milton Eloina DPM FACFAS Work Phone: [facility] 08-21-2024 16:14-0400 Heart rate 80 /min Milton Eloina DPM FACFAS Work Phone: [facility] 08-21-2024 16:14-0400 Systolic blood pressure 127 mm[Hg] Milton Fraire DPM FACFAS Work Phone: [facility] 08-19-2024 08:48-0400 Body weight 77.11 kg Giovani Hagen MD Work Phone: [facility] 08-19-2024 07:30-0400 Body temperature 98.1 [degF] Giovani Hagen MD Work Phone: [facility] 08-19-2024 07:30-0400 Diastolic blood pressure 75 mm[Hg] Giovani Hagen MD Work Phone: [facility] 08-19-2024 07:30-0400 Heart rate 85 /min Giovani Hagen MD Work Phone: [facility] 08-19-2024 07:30-0400 Respiratory rate 18 /min Giovani Hagen MD Work Phone: [facility] 08-19-2024 07:30-0400 SaO2% (BldA) [Mass fraction] 97 % Giovani Hagen MD Work Phone: [facility] 08-19-2024 07:30-0400 Systolic blood pressure 114 mm[Hg] Giovani Hagen MD Work Phone: [facility] 08-16-2024 17:29-0400 Body height 157.48 cm Giovani Hagen MD Work Phone: [facility] 08-14-2024 16:39-0400 Body height 157.5 cm Milton Fraire DPM FACFAS Work Phone: [facility] 08-14-2024 16:39-0400 Body mass index (BMI) [Ratio] 34.2 kg/m2 Milton Fraire DPM FACFAS Work Phone: [facility] 08-14-2024 16:39-0400 Body weight 84.82 kg Milton Fraire DPM FACFAS Work Phone: [facility] 08-14-2024 16:39-0400 Diastolic blood pressure 80 mm[Hg] Milton Fraire DPM FACFAS Work Phone: [facility] 08-14-2024 16:39-0400 Heart rate 82 /min Milton Fraire DPM FACFAS Work Phone: [facility] 08-14-2024 16:39-0400 Systolic blood pressure 125 mm[Hg] Milton Fraire DPM FACFAS Work Phone: [facility] 08-13-2024 14:57-0400 Body height 160 cm Solo Mora MD Work Phone: [facility] 08-13-2024 14:57-0400 Body mass index (BMI) [Ratio] 31.89 kg/m2 Solo Mora MD Work Phone: [facility] 08-13-2024 14:57-0400 Body weight 81.65 kg Solo Mora MD Work Phone: [facility] 08-13-2024 14:57-0400 Diastolic blood pressure 96 mm[Hg] Solo Mora MD Work Phone: [facility] 08-13-2024 14:57-0400 Heart rate 92 /min Solo Mora MD Work Phone: [facility] 08-13-2024 14:57-0400 Systolic blood pressure 140 mm[Hg] Solo Mora MD Work Phone: [facility] 08-01-2024 14:31-0400 Body height 157.5 cm Giovani Hagen MD Work Phone: [facility] 08-01-2024 14:31-0400 Body mass index (BMI) [Ratio] 34.2 kg/m2 Giovani Hagen MD Work Phone: [facility] 08-01-2024 14:31-0400 Body weight 84.82 kg Giovani Hagen MD Work Phone: [facility] 08-01-2024 14:31-0400 Diastolic blood pressure 82 mm[Hg] Giovani Hagen MD Work Phone: [facility] 08-01-2024 14:31-0400 Heart rate 85 /min Giovani Hagen MD Work Phone: [facility] 08-01-2024 14:31-0400 SaO2% (BldA) [Mass fraction] 100 % Giovani Hagen MD Work Phone: [facility] 08-01-2024 14:31-0400 Systolic blood pressure 124 mm[Hg] Giovani Hagen MD Work Phone: [facility] 07-24-2024 16:04-0400 Body height 157.5 cm Milton Fraire DPM FACFAS Work Phone: [facility] 07-24-2024 16:04-0400 Body mass index (BMI) [Ratio] 34.75 kg/m2 Milton Fraire DPM FACFAS Work Phone: [facility] 07-24-2024 16:04-0400 Body weight 86.18 kg Milton Fraire DPM FACFAS Work Phone: [facility] 07-24-2024 16:04-0400 Diastolic blood pressure 88 mm[Hg] Milton Fraire DPM FACFAS Work Phone: [facility] 07-24-2024 16:04-0400 Heart rate 109 /min Milton Fraire DPM FACFAS Work Phone: [facility] 07-24-2024 16:04-0400 Systolic blood pressure 132 mm[Hg] Milton Fraire DPM FACFAS Work Phone: [facility] 07-10-2024 09:45-0400 Body height 158.8 cm Javy Boudreaux MD Work Phone: [facility] 07-10-2024 09:45-0400 Body mass index (BMI) [Ratio] 34.2 kg/m2 Javy Boudreaux MD Work Phone: [facility] 07-10-2024 09:45-0400 Body weight 86.18 kg Javy Boudreaux MD Work Phone: [facility] 07-10-2024 09:45-0400 Diastolic blood pressure 90 mm[Hg] Javy Boudreaux MD Work Phone: [facility] 07-10-2024 09:45-0400 Heart rate 108 /min Javy Boudreaux MD Work Phone: [facility] 07-10-2024 09:45-0400 Systolic blood pressure 131 mm[Hg] Javy Boudreaux MD Work Phone: [facility] 07-04-2024 15:30-0400 Body height 157.5 cm Giovani Hagen MD Work Phone: [facility] 07-04-2024 15:30-0400 Body mass index (BMI) [Ratio] 34.75 kg/m2 Giovani Hagen MD Work Phone: [facility] 07-04-2024 15:30-0400 Body weight 86.18 kg Giovani Hagen MD Work Phone: [facility] 07-04-2024 15:30-0400 Diastolic blood pressure 88 mm[Hg] Giovani Hagen MD Work Phone: [facility] 07-04-2024 15:30-0400 Heart rate 109 /min Giovani Hagen MD Work Phone: [facility] 07-04-2024 15:30-0400 SaO2% (BldA) [Mass fraction] 98 % Giovani Hagen MD Work Phone: [facility] 07-04-2024 15:30-0400 Systolic blood pressure 132 mm[Hg] Giovani Hagen MD Work Phone: [facility] 07-03-2024 14:55-0400 Body height 157.5 cm Milton Dolce DPM FACFAS Work Phone: [facility] 07-03-2024 14:55-0400 Body mass index (BMI) [Ratio] 34.93 kg/m2 Milton Dolce DPM FACFAS Work Phone: [facility] 07-03-2024 14:55-0400 Body weight 86.64 kg Milton Dolce DPM FACFAS Work Phone: [facility] 07-03-2024 14:55-0400 Diastolic blood pressure 79 mm[Hg] Milton Dolce DPM FACFAS Work Phone: [facility] 07-03-2024 14:55-0400 Heart rate 88 /min Milton Dolce DPM FACFAS Work Phone: [facility] 07-03-2024 14:55-0400 Systolic blood pressure 132 mm[Hg] Milton Dolce DPM FACFAS Work Phone: [facility] 06-26-2024 15:00-0500 Body height 157.5 cm Milton Dolce DPM FACFAS Work Phone: [facility] 06-26-2024 15:00-0500 Body mass index (BMI) [Ratio] 34.93 kg/m2 Milton Dolce DPM FACFAS Work Phone: [facility] 06-26-2024 15:00-0500 Body weight 86.64 kg Milton Dolce DPM FACFAS Work Phone: [facility] 06-26-2024 15:00-0500 Diastolic blood pressure 79 mm[Hg] Milton Dolce DPM FACFAS Work Phone: [facility] 06-26-2024 15:00-0500 Heart rate 88 /min Milton Fraire DPM FACFAS Work Phone: [facility] [facility] 06-26-2024 15:00-0500 Systolic blood pressure 132 mm[Hg] Milton Fraire DPM FACFAS Work Phone: [facility] 06-25-2024 14:38-0500 Body mass index (BMI) [Ratio] 34.9 kg/m2 Darwin Matty DO Work Phone: [facility] 06-25-2024 14:38-0500 Body weight 86.55 kg Darwin Matty DO Work Phone: [facility] 06-25-2024 14:38-0500 Diastolic blood pressure 78 mm[Hg] Darwin Matty DO Work Phone: [facility] 06-25-2024 14:38-0500 Systolic blood pressure 130 mm[Hg] Darwin Matty DO Work Phone: [facility] 06-19-2024 14:37-0500 Body height 157.5 cm Prateek Pedraza DPM Work Phone: [facility] 06-19-2024 14:37-0500 Body mass index (BMI) [Ratio] 35.85 kg/m2 Prateek Pedraza DPM Work Phone: [facility] 06-19-2024 14:37-0500 Body weight 88.91 kg Prateek Pedraza DPM Work Phone: [facility] 06-19-2024 14:37-0500 Respiratory rate 18 /min Prateek Pedraza DPM Work Phone: [facility] 06-06-2024 15:42-0500 Body height 157.5 cm Giovani Hagen MD Work Phone: [facility] 06-06-2024 15:42-0500 Body mass index (BMI) [Ratio] 35.85 kg/m2 Giovani Hagen MD Work Phone: [facility] 06-06-2024 15:42-0500 Body weight 88.91 kg Giovani Hagen MD Work Phone: [facility] 06-06-2024 15:42-0500 Diastolic blood pressure 82 mm[Hg] Giovani Hagen MD Work Phone: [facility] 06-06-2024 15:42-0500 Heart rate 96 /min Giovani Hagen MD Work Phone: [facility] 06-06-2024 15:42-0500 SaO2% (BldA) [Mass fraction] 99 % Giovani Hagen MD Work Phone: [facility] 06-06-2024 15:42-0500 Systolic blood pressure 118 mm[Hg] Giovani Hagen MD Work Phone: [facility] 05-29-2024 13:49-0500 Body mass index (BMI) [Ratio] 35.81 kg/m2 Ayleen Krishnamurthy PA Work Phone: [facility] 05-29-2024 13:49-0500 Body weight 88.81 kg Ayleen Yessy PA Work Phone: [facility] 05-29-2024 13:49-0500 Diastolic blood pressure 76 mm[Hg] Ayleen Krishnamurthy PA Work Phone: [facility] 05-29-2024 13:49-0500 Systolic blood pressure 122 mm[Hg] Ayleen Krishnamurthy PA Work Phone: [facility] 05-22-2024 14:30-0500 Diastolic blood pressure 92 mm[Hg] Carol Winn MD Work Phone: [facility] 05-22-2024 14:30-0500 Heart rate 102 /min Carol Winn MD Work Phone: [facility] 05-22-2024 14:30-0500 Respiratory rate 21 /min Carol Winn MD Work Phone: [facility] 05-22-2024 14:30-0500 SaO2% (BldA) [Mass fraction] 100 % Carol Winn MD Work Phone: [facility] 05-22-2024 14:30-0500 Systolic blood pressure 133 mm[Hg] Carol Winn MD Work Phone: [facility] 05-22-2024 13:40-0500 Body height 157.5 cm Carol Winn MD Work Phone: [facility] 05-22-2024 13:40-0500 Body mass index (BMI) [Ratio] 33.84 kg/m2 Carol Winn MD Work Phone: [facility] 05-22-2024 13:40-0500 Body weight 83.92 kg Carol Winn MD Work Phone: [facility] 05-15-2024 08:50-0500 Body height 157.5 cm Milton Fraire DPM FACFAS Work Phone: [facility] 05-15-2024 08:50-0500 Body mass index (BMI) [Ratio] 36.21 kg/m2 Milton Corneliusce DPM FACFAS Work Phone: [facility] 05-15-2024 08:50-0500 Body weight 89.81 kg Milton Corneliusce DPM FACFAS Work Phone: [facility] 05-15-2024 08:50-0500 Diastolic blood pressure 82 mm[Hg] Milton Fraire DPM FACFAS Work Phone: [facility] 05-15-2024 08:50-0500 Heart rate 92 /min Milton Corneliusce DPM FACFAS Work Phone: [facility] 05-15-2024 08:50-0500 Systolic blood pressure 132 mm[Hg] Milton Fraire DPM FACFAS Work Phone: [facility] 05-09-2024 14:55-0500 Body height 157.5 cm Giovani Hagen MD Work Phone: [facility] 05-09-2024 14:55-0500 Body mass index (BMI) [Ratio] 36.21 kg/m2 Giovani Hagen MD Work Phone: [facility] 05-09-2024 14:55-0500 Body weight 89.81 kg Giovani Hagen MD Work Phone: [facility] 05-09-2024 14:55-0500 Diastolic blood pressure 88 mm[Hg] Giovani Hagen MD Work Phone: [facility] 05-09-2024 14:55-0500 Heart rate 101 /min Giovani Hagen MD Work Phone: [facility] 05-09-2024 14:55-0500 SaO2% (BldA) [Mass fraction] 96 % Giovani Hagen MD Work Phone: [facility] 05-09-2024 14:55-0500 Systolic blood pressure 134 mm[Hg] Giovani Hagen MD Work Phone: [facility] 05-08-2024 15:13-0500 Body height 157.5 cm Prateek Pedraza DPM Work Phone: [facility] 05-08-2024 15:13-0500 Body mass index (BMI) [Ratio] 35.3 kg/m2 Prateek Pedraza DPM Work Phone: [facility] 05-08-2024 15:13-0500 Body weight 87.54 kg Prateek Pedraza DPM Work Phone: [facility] 05-08-2024 15:13-0500 Respiratory rate 18 /min Prateek Pedraza DPM Work Phone: [facility] 04-30-2024 15:10-0500 Body mass index (BMI) [Ratio] 35.12 kg/m2 Darwin Matty DO Work Phone: [facility] 04-30-2024 15:10-0500 Body weight 87.09 kg Darwin Matty DO Work Phone: [facility] 04-30-2024 15:10-0500 Diastolic blood pressure 74 mm[Hg] Darwin Matty DO Work Phone: [facility] 04-30-2024 15:10-0500 Systolic blood pressure 122 mm[Hg] Darwin Starr DO Work Phone: [facility] 04-26-2024 14:12-0500 Body mass index (BMI) [Ratio] 33.87 kg/m2 Iliana Yacapraro PA-C Work Phone: [facility] 04-26-2024 14:12-0500 Body weight 84 kg Iliana Yacapraro PA-C Work Phone: [facility] 04-26-2024 14:12-0500 Diastolic blood pressure 92 mm[Hg] Iliana Yacapraro PA-C Work Phone: [facility] 04-26-2024 14:12-0500 Heart rate 84 /min Iliana Yacapraro PA-C Work Phone: [facility] 04-26-2024 14:12-0500 Systolic blood pressure 133 mm[Hg] Iliana Yacapraro PA-C Work Phone: [facility] 04-18-2024 16:42-0500 Body mass index (BMI) [Ratio] 35.67 kg/m2 Josephine Gilman BEHAVIORIST Work Phone: [facility] 04-18-2024 16:42-0500 Body temperature 97.7 [degF] Josephine Gilman BEHAVIORIST Work Phone: [facility] 04-18-2024 16:42-0500 Body weight 88.45 kg Josephine Gilman BEHAVIORIST Work Phone: [facility] 04-18-2024 16:42-0500 Diastolic blood pressure 82 mm[Hg] Josephine Gilman BEHAVIORIST Work Phone: [facility] 04-18-2024 16:42-0500 Heart rate 112 /min Josephine Gilman BEHAVIORIST Work Phone: [facility] Comment on above: repeat pulse 96bpm apical. 04-18-2024 16:42-0500 Respiratory rate 20 /min Josephine Gilman NP Work Phone: [facility] 04-18-2024 16:42-0500 SaO2% (BldA) [Mass fraction] 97 % Josephine Munozrodney BEHAVIORIST Work Phone: [facility] 04-18-2024 16:42-0500 Systolic blood pressure 128 mm[Hg] Josephine Kalina BEHAVIORIST Work Phone: [facility] 04-03-2024 10:39-0500 Body height 157.5 cm Deena Riki BEHAVIORIST Work Phone: [facility] 04-03-2024 10:39-0500 Body mass index (BMI) [Ratio] 35.01 kg/m2 Deena Riki BEHAVIORIST Work Phone: [facility] 04-03-2024 10:39-0500 Body weight 86.82 kg Deena Adak BEHAVIORIST Work Phone: [facility] 04-03-2024 10:39-0500 Diastolic blood pressure 82 mm[Hg] Deena Adak BEHAVIORIST Work Phone: [facility] 04-03-2024 10:39-0500 Heart rate 101 /min Deena Adak BEHAVIORIST Work Phone: [facility] 04-03-2024 10:39-0500 Respiratory rate 16 /min Deena Riki BEHAVIORIST Work Phone: [facility] 04-03-2024 10:39-0500 SaO2% (BldA) [Mass fraction] 99 % Deena Adak BEHAVIORIST Work Phone: [facility] 04-03-2024 10:39-0500 Systolic blood pressure 122 mm[Hg] Deena Adak BEHAVIORIST Work Phone: [facility] 04-01-2024 08:40-0500 Body height 157.5 cm Giovani Hagen MD Work Phone: [facility] 04-01-2024 08:40-0500 Body mass index (BMI) [Ratio] 34.39 kg/m2 Giovani Hagen MD Work Phone: [facility] 04-01-2024 08:40-0500 Body weight 85.28 kg Giovani Hagen MD Work Phone: [facility] 04-01-2024 08:40-0500 Diastolic blood pressure 88 mm[Hg] Giovani Hagen MD Work Phone: [facility] 04-01-2024 08:40-0500 Heart rate 88 /min Giovani Hagen MD Work Phone: [facility] 04-01-2024 08:40-0500 SaO2% (BldA) [Mass fraction] 94 % Giovani Hagen MD Work Phone: [facility] 04-01-2024 08:40-0500 Systolic blood pressure 132 mm[Hg] Giovani Hagen MD Work Phone: [facility] 03-20-2024 16:29-0500 Body mass index (BMI) [Ratio] 34.93 kg/m2 Darwin Matty DO Work Phone: [facility] 03-20-2024 16:29-0500 Body weight 86.64 kg Darwin Matty DO Work Phone: [facility] 03-20-2024 16:29-0500 Diastolic blood pressure 72 mm[Hg] Darwin Matty DO Work Phone: [facility] 03-20-2024 16:29-0500 Systolic blood pressure 118 mm[Hg] Darwin Matty DO Work Phone: [facility] 02-06-2024 09:14-0400 Body height 157.5 cm Giovani Hagen MD Work Phone: [facility] 02-06-2024 09:14-0400 Body mass index (BMI) [Ratio] 34.93 kg/m2 Giovani Hagen MD Work Phone: [facility] 02-06-2024 09:14-0400 Body weight 86.64 kg Giovani Hagen MD Work Phone: [facility] 02-06-2024 09:14-0400 Diastolic blood pressure 88 mm[Hg] Giovani Hagen MD Work Phone: [facility] 02-06-2024 09:14-0400 Heart rate 106 /min Giovani Hagen MD Work Phone: [facility] 02-06-2024 09:14-0400 SaO2% (BldA) [Mass fraction] 99 % Giovani Hagen MD Work Phone: [facility] 02-06-2024 09:14-0400 Systolic blood pressure 130 mm[Hg] Giovani Hagen MD Work Phone: [facility] 01-22-2024 13:37-0400 Diastolic blood pressure 74 mm[Hg] Darwin Matty DO Work Phone: [facility] 01-22-2024 13:37-0400 Systolic blood pressure 112 mm[Hg] Darwin Matty DO Work Phone: [facility] 01-09-2024 16:00-0400 Body height 157.5 cm Giovani Hagen MD Work Phone: [facility] 01-09-2024 16:00-0400 Body mass index (BMI) [Ratio] 34.75 kg/m2 Giovani Hagen MD Work Phone: [facility] 01-09-2024 16:00-0400 Body weight 86.18 kg Giovani Hagen MD Work Phone: [facility] 01-09-2024 16:00-0400 Diastolic blood pressure 84 mm[Hg] Giovani Hagen MD Work Phone: [facility] 01-09-2024 16:00-0400 Heart rate 96 /min Giovani Hagen MD Work Phone: [facility] 01-09-2024 16:00-0400 SaO2% (BldA) [Mass fraction] 98 % Giovani Hagen MD Work Phone: [facility] 01-09-2024 16:00-0400 Systolic blood pressure 124 mm[Hg] Giovani Hagen MD Work Phone: [facility] 12-28-2023 15:17-0400 Blood Pressure Location BHAVESH DEJESUS [facility] 12-28-2023 15:17-0400 Diastolic blood pressure 100 mm[Hg] BHAVESH DEJESUS [facility] 12-28-2023 15:17-0400 Heart rate 101 /min BHAVESH DEJESUS [facility] 12-28-2023 15:17-0400 Respiratory rate 18 /min BHAVESH DEJESUS [facility] 12-28-2023 15:17-0400 Systolic blood pressure 146 mm[Hg] BHAVESH DEJESUS [facility] 12-26-2023 15:07-0400 Body height 157.5 cm Giovani Hagen MD Work Phone: [facility] 12-26-2023 15:07-0400 Body mass index (BMI) [Ratio] 34.2 kg/m2 Giovani Hagen MD Work Phone: [facility] 12-26-2023 15:07-0400 Body weight 84.82 kg Giovani Hagen MD Work Phone: [facility] 12-26-2023 15:07-0400 Diastolic blood pressure 78 mm[Hg] Giovani Hagen MD Work Phone: [facility] 12-26-2023 15:07-0400 Heart rate 98 /min Giovani Hagen MD Work Phone: [facility] 12-26-2023 15:07-0400 SaO2% (BldA) [Mass fraction] 98 % Giovani Hagen MD Work Phone: [facility] 12-26-2023 15:07-0400 Systolic blood pressure 112 mm[Hg] Giovani Hagen MD Work Phone: [facility] 12-19-2023 15:01-0400 Body height 157.5 cm Solo Mora MD Work Phone: [facility] 12-19-2023 15:01-0400 Body mass index (BMI) [Ratio] 34.39 kg/m2 Solo Mora MD Work Phone: [facility] 12-19-2023 15:01-0400 Body weight 85.28 kg Solo Mora MD Work Phone: [facility] 12-19-2023 15:01-0400 Diastolic blood pressure 91 mm[Hg] Solo Mora MD Work Phone: [facility] 12-19-2023 15:01-0400 Heart rate 94 /min Solo Mora MD Work Phone: [facility] 12-19-2023 15:01-0400 Systolic blood pressure 127 mm[Hg] Solo Mora MD Work Phone: [facility] 11-02-2022 13:10-0400 Body height 157.5 cm Samuel Freeman MD Work Phone: [facility] 11-02-2022 13:10-0400 Body weight 71 kg Samuel Freeman MD Work Phone: [facility] 11-02-2022 13:10-0400 Diastolic blood pressure 97 mm[Hg] Samuel Freeman MD Work Phone: [facility] 11-02-2022 13:10-0400 Heart rate 100 /min Samuel Freeman MD Work Phone: [facility] 11-02-2022 13:10-0400 Systolic blood pressure 141 mm[Hg] Samuel Freeman MD Work Phone: [facility] 08-31-2022 15:30-0400 Diastolic blood pressure 91 mm[Hg] Carol Winn MD Work Phone: [facility] 08-31-2022 15:30-0400 Heart rate 99 /min Carol Winn MD Work Phone: [facility] 08-31-2022 15:30-0400 Respiratory rate 24 /min Carol Winn MD Work Phone: [facility] 08-31-2022 15:30-0400 SaO2% (BldA) [Mass fraction] 97 % Carol Winn MD Work Phone: [facility] 08-31-2022 15:30-0400 Systolic blood pressure 140 mm[Hg] Carol Winn MD Work Phone: [facility] 08-31-2022 14:10-0400 Body height 157.5 cm Carol Winn MD Work Phone: [facility] 08-31-2022 14:10-0400 Body mass index (BMI) [Ratio] 33.84 kg/m2 Carol Winn MD Work Phone: [facility] 08-31-2022 14:10-0400 Body weight 83.92 kg Carol Winn MD Work Phone: [facility] 06-30-2022 12:40-0500 Diastolic blood pressure 85 mm[Hg] Carol Winn MD Work Phone: [facility] 06-30-2022 12:40-0500 Heart rate 70 /min Carol Winn MD Work Phone: [facility] 06-30-2022 12:40-0500 Respiratory rate 12 /min Carol Winn MD Work Phone: [facility] 06-30-2022 12:40-0500 SaO2% (BldA) [Mass fraction] 100 % Carol Winn MD Work Phone: [facility] 06-30-2022 12:40-0500 Systolic blood pressure 120 mm[Hg] Carol Winn MD Work Phone: [facility] 06-30-2022 11:18-0500 Body height 157.5 cm Carol Winn MD Work Phone: [facility] 06-30-2022 11:18-0500 Body mass index (BMI) [Ratio] 33.84 kg/m2 Carol Winn MD Work Phone: [facility] 06-30-2022 11:18-0500 Body weight 83.92 kg Carol Winn MD Work Phone: [facility] 05-27-2022 11:29-0500 Body weight 85.73 kg Carol Winn MD Work Phone: [facility] 05-27-2022 11:29-0500 Diastolic blood pressure 92 mm[Hg] Carol Winn MD Work Phone: [facility] 05-27-2022 11:29-0500 Heart rate 102 /min Carol Winn MD Work Phone: [facility] 05-27-2022 11:29-0500 Systolic blood pressure 145 mm[Hg] Carol Winn MD Work Phone: [facility] 05-03-2022 15:30-0500 Body height 158.75 cm Imad Asaad Other [employer] Other 05-03-2022 15:30-0500 Body mass index (BMI) [Ratio] 34.55 kg/m2 Imad Asaad Other [employer] Other 05-03-2022 15:30-0500 Body weight 87.09 kg Imad Asaad Other [employer] Other 05-03-2022 15:30-0500 Diastolic blood pressure 91 mm[Hg] Imad Asaad Other [employer] Other 05-03-2022 15:30-0500 Systolic blood pressure 130 mm[Hg] Imad Asaad Other [facility] [employer] Other 05-03-2022 14:47-0500 Body weight 0 kg MD Giovani Hagen Work Phone: [facility] Encounters Encounter Date Encounter Type Care Provider Facility Start: 12-31-2025 ambulatory Iliana Bela Facility:[facility] Start: 01-06-2025 End: 01-06-2025 Bamboo YouViewheet [facility] Start: 01-06-2025 End: 01-06-2025 Wamiduane Hagen MD Work Phone: [facility] Start: 01-06-2025 End: 01-06-2025 ambulatory [facility] Comment on above: Testing Start: 01-06-2025 End: 01-06-2025 Patient encounter status Giovani Hagen MD Work Phone: [facility] Work Phone: Start: 01-06-2025 End: 01-06-2025 Periodic preventive med est patient 18-39 yrs Giovani Hagen MD Work Phone: [facility] Comment on above: Well adult health check (Primary Dx); Chest pain, unspecified type; Elevated liver enzymes; Type 2 diabetes mellitus without complication, without long-term current use of insulin (HCC) Start: 12-31-2024 End: 12-31-2024 ambulatory Ilianabety Obriena Facility:[facility] Start: 12-31-2024 End: 12-31-2024 Patient encounter procedure Iliana Cramer [facility] Start: 12-30-2024 End: 12-30-2024 ambulatory Madhuri MISHRA Facility:[facility] Start: 12-30-2024 End: 12-30-2024 Bamboo flowsheet Milton Fraire DPM FACFAS Work Phone: [facility] Start: 12-30-2024 End: 12-30-2024 Bamboo flowsheet Milton Fraire DPM FACFAS Work Phone: [facility] Start: 12-30-2024 End: 12-30-2024 Office outpatient visit 15 minutes Milton Fraire DPM FACFAS Work Phone: [facility] Comment on above: Other synovitis and tenosynovitis, right ankle and foot (Primary Dx); Right foot pain; Other enthesopathy of right foot and ankle Start: 12-30-2024 End: 12-30-2024 ambulatory MILTON FRAIRE Not Available Start: 12-30-2024 End: 12-30-2024 Patient encounter procedure Emma Ying APRN.[employer] Work Phone: Gynecology Comment on above: Chronic pelvic pain in female (Primary D x); Other specified dyspareunia; Pelvic pain in female; High-tone pelvic floor dysfunction; Vulvodynia; Stress incontinence; Irritable bowel syndrome with constipation; Vaginal dryness Start: 12-30-2024 End: 12-30-2024 ambulatory JAVY BOUDREAUX Facility:[facility] Start: 12-26-2024 End: 12-26-2024 Office outpatient visit 25 minutes Jatin Cabrera MD Work Phone: [facility] Comment on above: Lumbar radiculopathy (Primary Dx); Numbness and tingling; Atypical migraine Start: 12-26-2024 End: 12-26-2024 ambulatory JATIN CABRERA Not Available Start: 12-16-2024 End: 12-16-2024 Telephone encounter Sandy JUSTICE Work Phone: [facility] Comment on above: dose correction on med Start: 12-16-2024 End: 12-16-2024 Office outpatient visit 25 minutes Giovani Hagen MD Work Phone: [facility] Comment on above: Nonalcoholic steatohepatitis (ENGLISH) ([facility] Dx); PTSD (post-traumatic stress disorder) ; [...] 12-12-2024 Bamboo flowsheet Sandy JUSTICE Work Phone: [facility] [employer] Start: 12-12-2024 End: 12-12-2024 Bamboo flowsheet Sandy Hammond PA Work Phone: [facility] [employer] Start: 12-12-2024 End: 12-12-2024 Clinisync Result Encounter Sandy JUSTICE Work Phone: [facility] External Department Unsolicited Start: 12-12-2024 End: 12-12-2024 Office outpatient visit 25 minutes Sandy JUSTICE Work Phone: [facility] [employer] [facility] Comment on above: Elevated liver enzymes [...] End: 10-30-2024 Reffiona JUSTICE Work Phone: [facility] Comment on above: Anxiety; Bipolar disorder, in partial remission, most recent episode manic (HCC) Start: 10-23-2024 End: 10-23-2024 Clinisync Result Encounter Generic External Data Provider [facility] External Department Unsolicited Start: 10-23-2024 End: 10-23-2024 Clinisync Result Encounter Generic External Data Provider [facility] External Department Unsolicited Start: 10-23-2024 ambulatory MARIO HARPER Facility:[facility] Start: 10-23-2024 End: 10-23-2024 Subsequent hospital visit by physician General Iona Matt Mc Work Phone: Radiology Comment on above: Pelvic floor dysfunction [M62.89] Start: 10-21-2024 End: 10-21-2024 Clinisync Result Encounter Shannon Darden NP Work Phone: [facility] External Department Unsolicited Start: 10-21-2024 End: 10-21-2024 Clinisync Result Encounter Shannon Darden NP Work Phone: [facility] External Department Unsolicited Start: 10-21-2024 ambulatory MARIO HARPER Facility:[facility] Start: 10-21-2024 End: 10-21-2024 Subsequent hospital visit by physician [facility] Work Phone: [facility] Radiology General Comment on above: Pelvic floor dysfunction [M62.89] Start: 10-15-2024 End: 10-15-2024 ambulatory MARIO MEREDITH Facility:[facility] Start: 10-15-2024 End: 10-15-2024 Admission to same day surgery center Mario Harper APRN.[employer] Work Phone: Colorectal Surgery Start: 10-15-2024 End: 10-15-2024 Patient encounter procedure Mario Harper APRN.[employer] Work Phone: Colorectal Surgery Start: 10-11-2024 End: 10-11-2024 ambulatory Lydia Rock PT, DPT Work Phone: [facility] Start: 10-11-2024 End: 10-11-2024 Patient encounter procedure Lydia Rock PT, DPT Work Phone: [facility] Comment on above: Muscle spasm (Primary Dx); Pelvic floor dysfunction; Chronic constipation Start: 10-11-2024 End: 10-11-2024 ambulatory LYDIA ROCK Facility:[facility] Start: 10-10-2024 End: 10-10-2024 Bamboo flowsheet Shannon Darden BEHAVIORIST Work Phone: [facility] Start: 10-10-2024 End: 10-10-2024 Bamboo flowsheet Shannon Darden BEHAVIORIST Work Phone: [facility] Start: 10-10-2024 End: 10-10-2024 Office outpatient new 45 minutes Shannon Darden BEHAVIORIST Work Phone: [phone] Comment on above: Numbness and tingling (Primary Dx); Atypical migraine Start: 10-10-2024 End: 10-10-2024 ambulatory SHANNON DARDEN Not Available Start: 10-09-2024 End: 10-09-2024 Patient encounter procedure Mario Harper APRN.[employer] Work Phone: Colorectal Surgery Comment on above: Pelvic floor dysfunction (Primary Dx); Chronic constipation; Gastroparesis Start: 10-09-2024 End: 10-09-2024 ambulatory NOMA DAKHIL Facility:[facility] Start: 10-08-2024 End: 10-08-2024 Bamboo flowsheet Deena Lyn BEHAVIORIST Work Phone: [facility] Start: 10-08-2024 End: 10-08-2024 Bamboo flowsheet Deena Lyn BEHAVIORIST Work Phone: [facility] Start: 10-08-2024 End: 10-08-2024 Refill Deena Lyn BEHAVIORIST Work Phone: [facility] Comment on above: Attention deficit hyperactivity disorder (ADHD), predominantly inattentive type ; Bipolar disorder, in partial remission, most recent episode manic (HCC); Agoraphobia with panic attacks Start: 10-08-2024 End: 10-08-2024 Office outpatient visit 25 minutes Deena Lyn BEHAVIORIST Work Phone: [facility] Comment on [...] 09-25-2024 End: 09-25-2024 Bamboo flowsheet Deena Lyn BEHAVIORIST Work Phone: [facility] Start: 09-25-2024 End: 09-25-2024 Bamboo flowsheet Deena Lyn BEHAVIORIST Work Phone: [facility] Start: 09-25-2024 End: 09-25-2024 Office outpatient visit 25 minutes Deena Lyn BEHAVIORIST Work Phone: [facility] Comment on [...] Giovani Hagen MD Work Phone: [facility] Out[facility] Work Phone: Start: 08-16-2024 End: 08-19-2024 Evaluation and management of inpatient Giovani Hagen MD Work Phone: [address] Work Phone: Start: 08-14-2024 End: 08-14-2024 [...] Start: 08-13-2024 End: 08-13-2024 ambulatory SOLO MORA Facility:[facility] Start: 08-13-2024 End: 08-13-2024 ambulatory SOLO MORA Facility:[facility] Start: 08-13-2024 ambulatory GIOVANI HAGEN Facility:[facility] Start: 08-01-2024 End: 08-01-2024 Office outpatient visit [...] constipation [K59.04] Start: 07-10-2024 End: 07-10-2024 ambulatory [facility] Work Phone: Obstetrics/Gynecology Start: 07-10-2024 End: 09-05-2024 [...] Unsolicited Start: 05-23-2024 End: 05-24-2024 Orders Only Hazelton Rome MD Work Phone: Ambulatory Surgery Comment on above: Results (C diff) Start: 05-22-2024 End: 05-22-2024 ambulatory ILIANA MERCADO Facility:[facility] Start: 05-22-2024 End: 05-22-2024 Clinisync Result Encounter [...] Transcribe Orders Rosario Mcconnell MD Work Phone: [facility] Comment on above: [...] in partial remission, most recent episode manic ([facility]) Start: 05-06-2024 End: 05-06-2024 Telephone encounter Solo [...] Start: 04-26-2024 End: 04-26-2024 ambulatory GIOVANI HAGEN Facility:[facility] Start: 04-26-2024 End: 04-26-2024 Patient [...] Office outpatient visit 25 minutes Josephine Gilman BEHAVIORIST Work Phone: [facility] Comment on above: Acute bronchitis with asthma (CMS/HCC) ( Primary Dx) Start: 04-16-2024 End: 04-16-2024 ambulatory RUGEN M HIEU Not Available Start: 04-09-2024 End: 04-09-2024 ambulatory SOLO MORA Facility:[facility] Start: 04-05-2024 End: 04-09-2024 ambulatory [facility] Provider Cardiology Comment on above: Surgical Clearance Start: 04-05-2024 End: 04-05-2024 Telephone encounter Solo Mora MD Work Phone: Cardiology Comment on above: Received Outside Medical Records (Cardio Clearance [facility]) Start: 04-03-2024 End: 04-03-2024 ambulatory DEENA LYN Not Available Start: 04-03-2024 End: 04-03-2024 Office outpatient visit 25 minutes Deena Lyn BEHAVIORIST Work Phone: [facility] Comment on above: Hypokalemia (Primary Dx); Elevated blood sugar; Pre-operative clearance; Acute pain of left shoulder; Obesity (BMI 35.0-39.9 without comorbidity) Start: 04-03-2024 End: 04-03-2024 Preoperative state Deena Lyn BEHAVIORIST Work Phone: [facility] Start: 04-02-2024 End: 04-02-2024 Telephone encounter Solo Mora MD Work Phone: Cardiology Comment on above: Received Outside Medical Records ([facility]) Start: 04-01-2024 End: 04-01-2024 ambulatory RUGEN M [...] Start: 03-19-2024 End: 03-19-2024 ambulatory Anitra Lry PRINT COLOR OPERATOR [facility] Comment on above: Cervical radiculopathy (Primary Dx) Start: 03-11-2024 End: 03-11-2024 ambulatory Arun Hernadez PRINT COLOR OPERATOR [facility] Comment on above: Cervical radiculopathy (Primary Dx) Start: 03-11-2024 End: 03-11-2024 Bamboo flowsheet Arun Hernadez PRINT COLOR OPERATOR [facility] Start: 03-11-2024 End: 03-11-2024 Bamboo flowsheet Arun Hernadez PRINT COLOR OPERATOR [facility] Start: 03-07-2024 End: 03-07-2024 Refill Giovani Hagen MD Work Phone: [facility] Comment on above: Obesity (BMI 35.0-39.9 without comorbidi ty) Start: 03-06-2024 End: 03-07-2024 ambulatory Arun Hernadez PRINT COLOR OPERATOR [facility] Comment on above: Cervical radiculopathy (Primary Dx) Anxiety; Bipolar disorder, in partial remission, most recent episode manic ([facility]) Start: 02-29-2024 End: 02-29-2024 ambulatory Anitra Lry PRINT COLOR OPERATOR [facility] Comment on above: Cervical radiculopathy (Primary Dx) Start: 02-29-2024 End: 02-29-2024 Bamboo flowsheet Anitra Odellbley PRINT COLOR OPERATOR [facility] Start: 02-29-2024 End: 02-29-2024 Bamboo flowsheet Anitra Odellbley PRINT COLOR OPERATOR [facility] Start: 02-27-2024 End: 02-27-2024 ambulatory Anitra Odellbley PRINT COLOR OPERATOR [facility] Comment on above: Cervical radiculopathy (Primary Dx) Start: 02-27-2024 End: 02-27-2024 Bamboo flowsheet Anitra Kelbley PRINT COLOR OPERATOR [facility] Start: 02-27-2024 End: 02-27-2024 Bamboo flowsheet Anitra Kelbley PRINT COLOR OPERATOR [facility] Start: 02-20-2024 End: 02-20-2024 Refill Audrey Perez LPN [facility] Comment on above: Attention deficit hyperactivity disorder (ADHD), predominantly inattentive type (CMS/HCC) Start: 02-14-2024 End: 02-15-2024 ambulatory Arun Juniorink PRINT COLOR OPERATOR [facility] Comment on above: Cervical radiculopathy (Primary Dx) Start: 02-14-2024 End: 02-14-2024 Bamboo flowsheet Arun Brink PRINT COLOR OPERATOR [facility] Start: 02-14-2024 End: 02-14-2024 Bamboo flowsheet Arun Brink PRINT COLOR OPERATOR [facility] Start: 02-12-2024 End: 02-12-2024 ambulatory Zhen Burgess PT Work Phone: [facility] Comment on above: Cervical radiculopathy (Primary Dx) Start: 02-12-2024 End: 02-12-2024 Bamboo flowsheet Zhen Valentinton PT Work Phone: [facility] Start: 02-12-2024 End: 02-12-2024 Bamboo flowsheet Zhen Valentinton PT Work Phone: [facility] Start: 02-07-2024 End: 02-07-2024 ambulatory Arun Juniorink PRINT COLOR OPERATOR [facility] Comment on above: Cervical radiculopathy (Primary Dx) Start: 02-07-2024 End: 02-07-2024 Bamboo flowsheet Arun Brink PRINT COLOR OPERATOR [facility] Start: 02-07-2024 End: 02-07-2024 Bamboo flowsheet Arun Brink PRINT COLOR OPERATOR [facility] Start: 02-06-2024 End: 02-06-2024 Office outpatient visit 25 minutes Giovain Hagen MD Work Phone: [facility] [...] PT Initial Eval ([facility] for cervical radiculopathy; [...] encounter procedure BHAVESH DEJESUS [facility] Start: 12-28-2023 End: 12-29-2023 ambulatory [facility] Provider Cardiology Comment on above: Zio Start: 12-26-2023 End: 12-26-2023 Office outpatient visit 25 minutes Giovani Hagen MD Work Phone: [facility] Comment on above: Cervical radiculopathy (Primary Dx); Acute nonintractable headache, unspecified headache type; Nausea and vomiting, unspecified vomiting type Start: 12-19-2023 End: 12-21-2023 Orders Only Solo Mora MD Work Phone: Cardiology Comment on above: Syncope and collapse (Primary Dx) Event (ZIO PATCH) Syncope, unspecified syncope type (Primary Dx) Start: 12-18-2023 End: 02-01-2024 Telephone encounter Beinto Kendrick [facility] Comment on above: Lab results Start: 12-13-2023 End: 12-13-2023 Clinisync Result Encounter Generic External Data Provider [facility] External Department Unsolicited Start: 12-13-2023 End: 12-13-2023 Clinisync Result Encounter Generic External Data Provider NOM External Department Unsolicited Start: 12-04-2023 End: 12-12-2024 Patient encounter status Zhen Lupe PT Work Phone: [facility] Start: 11-02-2023 Orders Only Solo Mora MD Work Phone: Cardiology Comment on above: Gastroparesis (Primary Dx) Patient Update (Refe rral & Records are in Care Everywhere) Start: 03-22-2023 End: 03-24-2023 Evaluation and management of inpatient [facility] Start: 03-20-2023 ambulatory Carol Winn MD Work Phone: Gastroenterology Comment on above: Thoughts and input Start: 03-20-2023 Telephone encounter Charlette Campuzano MD Work Phone: [facility] Adult Start: 11-03-2022 Telephone encounter Maria Dolores Corey DO Work Phone: Gastroenterology Comment on above: Medication Preauthorization ([place] for Ibsr pialr) Start: 11-02-2022 End: 11-02-2022 Orders Only Maria Dolores Corey DO Work Phone: Gastroenterology Comment on above: Irritable bowel syndrome with constipati on (Primary Dx) Gastroparesis Gastroparesis (Prima ry Dx) Start: 10-26-2022 End: 10-26-2022 ambulatory MD Giovani Hagen Work Phone: [facility] Work Phone: Start: 10-26-2022 End: 10-26-2022 Patient encounter procedure MD Giovani Hagen Work Phone: [facility]-Ultrasound [facility] [place] Work Phone: Start: 10-18-2022 ambulatory Maria Dolores Rodney Corey DO Work Phone: Gastroenterology Start: 10-18-2022 Telephone encounter Maria Dolores Corey DO Work Phone: Gastroenterology Comment on above: Medication Preauthorization ([employer]) Results Start: 10-17-2022 End: 10-17-2022 Patient encounter procedure [facility] Work Phone: Gastroenterology Comment on above: Gastroparesis (Primary Dx) Start: 09-12-2022 End: 09-12-2022 Subsequent hospital visit by physician [facility] Work Phone: [facility] Radiology Molecular Comment on above: Nausea [R11.0] Start: 08-31-2022 End: 08-31-2022 Subsequent hospital visit by physician Carol Winn MD Work Phone: Ambulatory Surgery Comment on above: PUD (peptic ulcer disease) [K27.9] Start: 08-24-2022 Telephone encounter Nurse Jud [facility] Work Phone: Gastroenterology Comment on above: Appointment Start: 07-08-2022 End: 07-08-[address] MADHURI MISHRA . Facility:[facility] Start: 07-06-2022 End: 07-07-[address] MADHURI MISHRA . Facility:[facility] Start: 07-05-2022 End: 07-05-2022 Patient encounter procedure Madhuri MSIHRA [facility] Start: 07-04-2022 Orders Only Carol Winn MD Work Phone: Gastroenterology Start: 06-30-2022 End: 06-30-2022 Subsequent hospital visit by physician Carol Winn MD Work Phone: Ambulatory Surgery Comment on above: Bilious vomiting with nausea [R11.14] Start: 06-29-2022 End: 06-30-[address] MADHURI MISHRA . Facility:[facility] Start: 06-29-2022 End: 06-29-2022 Lab Drop off Madhuri MISHRA [facility] Start: 06-23-2022 ambulatory Carol Winn MD Work Phone: Gastroenterology Comment on above: EGD instructions Start: 06-23-2022 E-mail encounter from caregiver Carol Winn MD Work Phone: [facility] Start: 06-16-2022 ambulatory [facility] Provider Gastroenterology Comment on above: Question regarding US ABD RT UPPER QUADR ANT Start: 06-15-2022 End: 06-15-2022 Subsequent hospital visit by physician Kye [facility] Work Phone: [facility] Radiology Ultrasound Comment on above: Liver lesion [K76.9] Start: 06-14-2022 Orders Only Carol Winn MD Work Phone: Ambulatory Surgery Comment on above: Liver lesion (Primary Dx) Results Start: 06-10-2022 ambulatory Diamond Pycraft RT(R) Radiology Ct Scan Comment on above: Radiology CT Start: 06-10-2022 Patient encounter procedure Diamond Pycraft RT(R) [facility] Start: 06-10-2022 End: 06-10-2022 Subsequent hospital visit by physician Ct Prep [facility] Radiology Ct Scan Comment on above: Bilious vomiting with nausea [R11.14] Start: 05-27-2022 End: 05-27-2022 Subsequent hospital visit by physician Arron [facility] Work Phone: [facility] Radiology General Comment on above: SOB (shortness of breath) [R06.02] Start: 05-27-2022 End: 05-27-2022 Patient encounter procedure Carol Winn MD Work Phone: Gastroenterology Comment on above: Fatty liver (Primary Dx); Bilious vomiting with nausea; Right sided abdominal pain; Nausea; History of diverticulitis; SOB (shortness of breath) Start: 05-13-2022 End: 05-13-2022 ambulatory MD Giovani Hagen Work Phone: [facility] Work Phone: Start: 05-13-2022 End: 05-13-2022 Patient encounter procedure MD Giovani Hagen Work Phone: [facility]-Digestive [facility] Work Phone: Start: 05-03-2022 End: 05-04-2022 ambulatory Brille24 Other Start: 05-03-2022 Office consultation new/estab patient 60 min Imad Asaad [facility] Gastroenterology Start: 04-20-2022 End: 04-20-[address] AURORA IRBY . Facility:[facility] Start: 04-06-2022 End: 04-07-[address] GIOVANI HAGEN Facility:[facility] Start: 12-21-2021 End: 12-22-[address] AURORA IRBY . Facility:[facility] Start: 12-10-2021 End: 12-10-2021 Subsequent hospital visit by physician Us [facility] Ultrasound Comment on above: Elevated LFTs [...] Start: 11-06-2018 End: 11-09-2018 [facility] Date Procedure Procedure Detail Performing Clinician Start: 12-13-2024 Radex foot complete minimum 3 views Milton D Dolce DPM FACFAS Work Phone: Start: 12-12-2024 MLR HEMOGLOBIN A1C Sandy JUSTICE Work Phone: Start: 10-23-2024 Radiologic exam abdomen 1 view Mario Harper APRN.SALESPERSON HEARING AIDS Work Phone: Start: 10-23-2024 XR ABDOMEN 1V SUPINE Generic External Data Provider Start: 10-21-2024 MRI HEAD/BRAIN WO/W CONTR Shannon Darden BEHAVIORIST Work Phone: Start: 10-15-2024 ADULT [place] [facility] Mario Harper APRN.SALESPERSON HEARING AIDS Work Phone: Start: 07-10-2024 Us pelvic nonobstetric [...] of sacroiliac joint using fluoroscopic guidance Madhuri MSIHRA Comment on above: right 40% relief Start: [...] DTaP,Tdap,Td Vaccine (7 - Td or Tdap) [facility] Start: 03-18-2025 End: 03-18-2025 Patient encounter procedure 03/18/2025 9:00 AM EST Office Visit [facility] [place] [facility] [address] [facility] [address] [place] [address] Giovani Hagen MD 112 [facility] 110 [place] [address] [facility] [place] [facility] Start: 02-28-2025 End: 02-28-2025 Patient encounter procedure 02/28/2025 9:00 AM EST Office Visit [facility] [address] [facility] [address] [place] [address] Jatin Cabrera MD [address] [facility] [address] [address] [facility] Start: 01-15-2025 End: 01-15-2025 Clinical Support 01/15/2025 4:00 PM EDT Clinical Support [facility] [address] [facility] [place] [address] Milton Fraire, DPM FACFAS [address] [facility] [address] [facility] NMA POD Start: 12-30-2024 End: 12-30-2024 [...] AM EDT Office Visit [facility] [place] [facility] [address] [facility] [facility] [address] [place] [address] Giovani Hagen MD 112 [facility] 110 [place] [address] [facility] [place] [facility] Start: 12-13-2024 End: 12-13-2024 Patient encounter procedure 12/13/2024 9:40 AM EDT Office Visit [facility] P[facility] [address] [place] [address] Milton Fraire, DPM FACFAS [address] [place] [address] [facility] NMA POD Start: 12-12-2024 End: 12-12-2024 Patient encounter procedure 12/12/2024 10:30 AM EDT Office Visit [facility] [place] [facility] [address] [facility] 110 [place] [address] Sandy Hammond PA 112 [facility] 110 [place] [address] Elevated liver enzymes (Primary Dx); Nephrocalcinosis; Bilateral nephrolithiasis; Right ovarian cyst; Hypokalemia [facility] [place] [facility] Comment on above: Elevated liver enzymes (Primary Dx); Nephrocalcinosis; Bilateral nephrolithiasis; Right ovarian cyst; Hypokalemia Start: 11-18-2024 End: 11-18-2024 Patient encounter procedure 11/18/2024 12:00 PM EDT Procedure Visit [facility] [address] [facility] [address] [place] [address] [facility] Start: 11-04-2024 End: 11-04-2024 Patient encounter procedure 11/04/2024 2:00 PM EDT Office Visit Gynecology [address] [place] [address] Emma Ying, MANAGING EDITOR.SALESPERSON HEARING AIDS [address] [place], [place] [id number] Other specified dyspareunia Gynecology Comment on above: Other specified dyspareunia Start: 10-29-2024 End: 10-29-2024 Patient encounter procedure 10/29/2024 10:00 AM EDT Procedure Visit [facility] [address] [place] [phone] [facility] NEURO [address] Start: 10-15-2024 End: 10-15-2024 Admission to same day surgery center 10/15/2024 10:30 AM EDT Procedure Colorectal Surgery [address] [facility] [address] [place], [place] [id number] Mario Harper, MANAGING EDITOR.SALESPERSON HEARING AIDS [address] [place], [place] [id number] manometry Colorectal Surgery Comment on above: manometry Start: 10-10-2024 End: 10-10-2025 EMG 1 Extremeity EMG 1 [facility]ity Neurology Routine Numbness and tingling Expected: 10/10/2024 (Approximate), Expires: 10/10/2025 [facility] Comment on above: Expected: 10/10/2024 (Approximate), Expi res: 10/10/2025 Start: 10-10-2024 End: 10-10-2025 MR Brain WO and W contrast IV MR brain w and wo contrast routine Imaging Routine Numbness and tingling Atypical migraine Expected: 10/10/2024 (Approximate), Expires: 10/10/2025 [facility] Work Phone: Comment on above: Expected: 10/10/2024 (Approximate), Expi res: 10/10/2025 Start: 10-10-2024 End: 10-10-2024 Patient encounter procedure [facility] NE[facility]O 210 Comment on above: Arrived Start: 09-25-2024 End: 09-25-2024 Patient encounter procedure 09/25/2024 10:30 AM EDT Office Visit [facility] [address] [facility] [address] [place] [address] Deena Lyn NP [address] [facility] [address] [place] [address] Arrived [facility] Comment on above: Arrived Start: 09-17-2024 End: 09-17-2024 Patient encounter procedure [facility] Comment on above: Arrived Start: 09-04-2024 End: 09-04-2024 Patient encounter procedure 09/04/2024 4:40 PM EDT Office Visit [facility] [address] [facility] [place] [address] Milton Fraire, DPM FACFAS [address] [facility] [address] [place] [address] [facility] NMA POD Start: 09-02-2024 End: 09-02-2024 Patient encounter procedure 09/02/2024 3:00 PM EDT Office Visit [facility] [address] [facility] [address] [place] [address] Giovani Hagen MD [address] [facility] 110 [place] [address] [facility] Start: 08-21-2024 End: 08-21-2024 Patient encounter procedure 08/21/2024 4:00 PM EDT Office Visit [facility] [address] [facility] [place] [address] Milton Fraire, DPM FACFAS 368 [facility] [place] [address] N[facility] NMA POD Start: 08-19-2024 [facility] Start: 08-16-2024 Hospital admission [facility] Start: 08-16-2024 [facility] Start: 08-14-2024 End: 08-14-2024 Patient encounter procedure 08/14/2024 4:10 PM EDT Office Visit [facility] POD [address] [place] [address] Milton Fraire, DPM FACFAS [address] [place] [address] [facility] NMA POD Start: 08-13-2024 End: 08-13-2024 Patient encounter procedure 08/13/2024 2:30 PM EDT Office Visit Cardiology [address] [place] [address] Solo Mora MD [address] [place], [place] [phone] Dx: Syncope, unspecified syncope type [R55] Cardiology Comment on above: Dx: Syncope, unspecified syncope type [R 55] Start: 08-13-2024 End: 08-13-2024 Patient encounter procedure 08/13/2024 12:30 PM EDT Office Visit Cardiology [address] [place] [address] Dx: Syncope, unspecified syncope type [R55] Cardiology Comment on above: Dx: Syncope, unspecified syncope type [R 55] Start: 08-13-2024 End: 08-13-2024 Patient encounter procedure 08/13/2024 10:30 AM EDT Office Visit Cardiology [address] [place] [address] Dx: Syncope, unspecified syncope type [R55] Cardiology Comment on above: Dx: Syncope, unspecified syncope type [R 55] Start: 08-01-2024 End: 08-01-2024 Patient encounter procedure 08/01/2024 2:30 PM EDT Office Visit [facility] [address] [facility] 110 [place] [phone] Giovani Hagen MD [address] [facility] 110 [place] [address] [facility] Start: 07-26-2024 End: 07-26-2024 ambulatory 07/26/2024 8:40 AM EDT [facility] [address] [place] [address] [place] [address] [place] [phone] Elevated LFT, per Pt Gastroenterology Comment on above: Elevated LFT, per Pt Start: 07-24-2024 End: 07-24-2024 Patient encounter procedure 07/24/2024 3:50 PM EDT Office Visit [facility] NMA POD [address] [place] [address] Milton Fraire, DPM FACFAS [address] [facility] [address] N[facility]S NMA POD Start: 07-04-2024 End: 07-04-2024 Patient encounter procedure 07/04/2024 3:30 PM EDT Office Visit [facility] [address] [facility] [address] [place] [address] Giovani Hagen MD [address] [facility] [address] [place] [address] [facility] Start: 07-03-2024 End: 07-03-2024 Patient encounter procedure 07/03/2024 2:20 PM EDT Office Visit [facility] NMA POD [address] [place] [address] Milton Fraire, DPM FACFAS [address] [facility] [facility] [address] [place] [address] N[facility]S NMA POD Start: 06-26-2024 End: 06-26-2024 Patient encounter procedure 06/26/2024 2:50 PM EST Office Visit [facility] NMA POD [address] [place] [phone] Milton Fraire, DPM FACFAS [address] [facility] [facility] [place] [address] N[facility] NMA POD Start: 06-25-2024 End: 06-25-2024 Patient encounter procedure [facility] BCP OB Comment on above: Arrived Start: 06-24-2024 End: 06-24-2024 Patient encounter procedure 06/24/2024 10:40 AM EST Office Visit [facility] NMA POD [address] [place] [address] Milton Fraire, DPM FACFAS [address] [facility] [place] [address] NOMS NMA POD Start: 06-19-2024 End: 06-19-2024 Patient encounter procedure [facility] SC POD Comment on above: Arrived Start: 06-17-2024 End: 06-17-2024 Patient encounter procedure 06/17/2024 10:30 AM EST Office Visit Orthopaedics [address] [place] [address] Naren Verdugo PA-C [address] [place] [phone] 1st post op Rt ankle arthroscopy/internal brace 06/04/24 Orthopaedics Comment on above: 1st post op Rt ankle arthroscopy/interna l brace 06/04/24 Start: 06-12-2024 End: 06-12-2024 ambulatory 06/12/2024 1:45 PM EST Results Only Cardiology [address] [place] [address] Dx: Syncope, unspecified syncope type [R55] Cardiology Comment on above: Dx: Syncope, unspecified syncope type [R 55] Start: 06-12-2024 End: 06-12-2024 Patient encounter procedure Cardiology Comment on above: Dx: Syncope, unspecified syncope type [R 55] Start: 06-10-2024 End: 06-10-2024 Patient encounter procedure 06/10/2024 9:40 AM EST Appointment [facility] [address] [facility] [address] [place] [address] Rosario Mcconnell I, MD [address] [facility] [address] [place] [address] [facility] Comment on above: [email or web address] RESEARCH - CORCEPT Start: 06-04-2024 End: 06-04-2024 Patient encounter procedure 06/04/2024 9:40 AM EST Office Visit [facility] NMA POD [address] [place] [address] Milton Fraire, DPM FACFAS [address] [facility] [place] [address] N[facility] NMA POD Start: 06-04-2024 End: 06-04-2024 Admission to same day surgery center 06/04/2024 7:30 AM EST - 06/04/2024 10:10 AM EST Surgery [facility] Surgery [address] [place] [address] Lydia Kelley DO [address] [place], [place] [address] REPAIR ANKLE LIGAMENT SECONDARY DISRUPTED, COLLATERAL [facility] Comment on above: REPAIR ANKLE LIGAMENT SECONDARY DISRUPTE D, COLLATERAL Start: 06-04-2024 End: 06-04-2024 Repair secondary disrupted ligament ankle coltrl REPAIR ANKLE LIGAMENT SECONDARY DISRUPTED, COLLATERAL Right ankle instability 06/04/2024 7:30 AM EST ME OR Start: 06-04-2024 Subsequent hospital visit by physician 06/04/2024 7:30 AM EST Hospital Encounter [facility] [address] [place] [address] Lydia Kelley DO [address] [place] [address] 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] [facility] Comment on above: 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] Start: 05-31-2024 End: 05-31-2024 ambulatory 05/31/2024 1:15 PM EST [facility] [address] [address] Lydia Kelley DO [address] [place] [address] 4 week f/u, right ankle Orthopaedics Comment on above: 4 week f/u, right ankle Start: 05-31-2024 End: 05-31-2024 Patient encounter procedure 05/31/2024 9:45 AM EST Office Visit Orthopaedics [address] [facility] [address] [place] [address] Lydia Kelley [address] [place] [address] 4 week f/u, right ankle Orthopaedics Comment on above: 4 week f/u, right ankle Start: 05-29-2024 End: 05-29-2024 Patient encounter procedure [facility] Comment on above: Arrived Start: 05-22-2024 End: 05-22-2024 Patient encounter procedure 05/22/2024 2:30 PM EST Appointment Ambulatory Surgery [address] [place] [address] [place] [address] [place] [address] BRBPR (bright red blood per rectum) [K62.5] Ambulatory Surgery Comment on above: BRBPR (bright red blood per rectum) [K62 .5] Start: 05-15-2024 End: 05-15-2024 Patient encounter procedure [facility] Comment on above: Arrived Start: 05-08-2024 End: 05-08-2024 Patient encounter procedure 05/08/2024 3:10 PM EST Office Visit [facility] [address] [place] [address] Prateek Pedraza DPM [address] [address] [facility] Start: 05-05-2024 End: 05-05-2024 Anesthesia consultation 05/05/2024 11:59 PM EST Anesthesia Event Ambulatory Surgery [address] [place] [address] Sharla Bonds APRN.EDUCATION INSTRUCTOR [address] [place] [address] Ambulatory Surgery Start: 05-02-2024 End: 05-02-2024 ambulatory 05/02/2024 12:00 PM EST Procedure Gastroenterology [address] [place] [address] fibroscan Gastroenterology Comment on above: fibroscan Start: 05-01-2024 End: 05-01-2024 Patient encounter procedure 05/01/2024 4:30 PM EST Office Visit [facility] [address] [place] [address] Prateek Pedraza DPM [address] [address] [facility] Start: 04-30-2024 End: 04-30-2024 Patient encounter procedure [facility] Comment on above: Arrived Start: 04-26-2024 End: 04-26-2024 Patient encounter procedure 04/26/2024 3:05 PM EST Office Visit Gastroenterology [address] [place] [address] Iliana Mercado PA-C [address] [place] [address] Elevated LFT, per Pt Gastroenterology Comment on above: Elevated LFT, per Pt Start: 04-26-2024 End: 07-26-2024 Alpha 1 antitrypsin [Mass/volume] in Serum or Plasma [facility] Comment on above: Expected: 04/26/2024, Expires: Start: 04-26-2024 End: 07-26-2024 [id number] [Mass/volume] in Serum or Plasma [facility] Work Phone: Comment on above: Expected: 04/26/2024, Expires: Start: 04-26-2024 End: 07-26-2024 DENY BY IFA WITH REFLEX [facility] Comment on above: Expected: 04/26/2024, Expires: Start: 04-26-2024 End: 07-26-2024 Ceruloplasmin [Mass/volume] in Serum or Plasma [facility] Comment on above: Expected: 04/26/2024, Expires: Start: 04-26-2024 End: 07-26-2024 Hepatitis A virus IgM Ab [Presence] in Serum [facility] Comment on above: Expected: 04/26/2024, Expires: Start: 04-26-2024 End: 07-26-2024 Hepatitis B virus core IgM Ab [Presence] in Serum [facility] Comment on above: Expected: 04/26/2024, Expires: Start: 04-26-2024 End: 07-26-2024 Hepatitis B virus surface Ag [Presence] in Serum [facility] Comment on above: Expected: 04/26/2024, Expires: Start: 04-26-2024 End: 07-26-2024 Hepatitis C virus Ab [Presence] in Serum [facility] Comment on above: Expected: 04/26/2024, Expires: Start: 04-26-2024 End: 07-26-2024 Mitochondria Ab [Presence] in Serum by Immunofluorescence [facility] Comment on above: Expected: 04/26/2024, Expires: Start: 04-26-2024 End: 07-26-2024 Smooth muscle Ab [Presence] in Serum [facility] Comment on above: Expected: 04/26/2024, Expires: Start: 04-03-2024 End: 04-03-2025 Hemoglobin A1c/Hemoglobin.total in Blood Hemoglobin A1c Lab Routine Elevated blood sugar Expected: 04/03/2024 (Approximate), Expires: 04/03/2025 [facility] Comment on above: Expected: 04/03/2024 (Approximate), Expi [...] [facility] [address] [place] [address] Giovani Hagen MD [address] [facility] [address] [place] [address] [facility] Start: 03-27-2024 End: 03-27-2024 ambulatory 03/27/2024 4:00 PM EST Treatment [facility] [address] [facility] [address] [place] [address] Zhen Burgess, PT [address] [facility] [address] [place] [address] [facility] Start: 03-25-2024 End: 03-25-2024 ambulatory 03/25/2024 4:00 PM EST Treatment [facility] [address] [facility] [address] [place] [address] Arun Hernadez, CINDY [facility] Start: 03-20-2024 End: 03-20-2024 Patient encounter procedure 03/20/2024 4:00 PM EST Office Visit [facility] [address] [place] [phone] Darwin Starr, [address] [place] [address] [facility] Start: 03-19-2024 End: 03-19-2024 ambulatory 03/19/2024 4:00 PM EST Treatment [facility] [address] [facility] [address] [place] [address] Anitra Ricci, PRINT COLOR OPERATOR [facility] Start: 03-13-2024 End: 03-13-2024 ambulatory 03/13/2024 4:30 PM EST Treatment [facility] [address] [facility] [address] [place] [address] Zhen Burgess, PT [address] [facility] [place] [address] [facility] Start: 03-11-2024 End: 03-11-2024 ambulatory [facility] Comment on above: Arrived Start: 03-06-2024 End: 03-06-2024 ambulatory [facility] Start: 03-04-2024 End: 03-04-2024 ambulatory 03/04/2024 9:00 AM EST Treatment [facility] [address] [facility] [address] [place] [address] Arun Hernadez PRINT COLOR OPERATOR [facility] Start: 02-29-2024 End: 02-29-2024 ambulatory [facility] Comment on above: Arrived Start: 02-27-2024 End: 02-27-2024 ambulatory [facility] Comment on above: Arrived Start: 02-21-2024 End: 02-21-2024 ambulatory 02/21/2024 4:30 PM EDT Treatment [facility] [address] [facility] [address] [place] [address] Anitra Ricci PRINT COLOR OPERATOR [facility] Start: 02-14-2024 End: 02-14-2024 ambulatory [facility] Start: 02-13-2024 End: 02-13-2024 Patient encounter procedure Cardiology Comment on above: Dx: Syncope, unspecified syncope type [R 55] Start: 02-13-2024 End: 02-13-2024 ambulatory 02/13/2024 2:00 PM EDT Results Only Cardiology [address] [place] [id number] Dx: Syncope, unspecified syncope type [R55] Cardiology [...] EDT Office Visit [facility] [address] [place] [phone] Darwin Starr DO [address] [place] [address] [facility] Start: 01-09-2024 End: 01-09-2024 Patient encounter procedure 01/09/2024 4:00 PM EDT Office Visit [facility] [address] [facility] [address] [place] [address] Giovani Hagen MD [address] [facility] [address] [place] [address] [facility] Start: 01-09-2024 End: 01-08-2025 [...] 12-24-2023 Covid-19 Vaccine () Covid-19 Vaccine () [facility] Start: 12-24-2023 Covid-19 Vaccine () Covid-19 Vaccine () [facility] Start: 12-24-2023 Influenza vaccination [facility] Start: 12-19-2023 End: 12-19-2023 ambulatory 12/19/2023 2:15 PM EDT Results Only Cardiology [address] [place] [address] Exertional Syncope. Referring: Dr. Shilo Dillon Cardiology Comment on above: Exertional Syncope. Referring: Dr. Shilo Dillon Start: 12-19-2023 End: 12-19-2023 Patient encounter procedure Cardiology Comment on above: Exertional Syncope. Referring: Dr. Shilo Dillon Start: 04-24-2023 Behavioral Health Screening Behavioral Health Screening [facility] Start: 12-23-2022 Covid-19 Vaccine () Covid-19 Vaccine () [facility] Start: 12-23-2022 Influenza vaccination [facility] Start: 05-13-2022 [facility] Start: 04-24-2022 DEPRESSION ASSESSMENT DEPRESSION ASSESSMENT [facility] Start: 12-28-2021 COVID-19 VACCINE (4 - Booster for Pfizer series) COVID-19 VACCINE (4 - Booster for Pfizer series) [facility] Start: 12-28-2021 COVID-19 VACCINE (4 - Pfizer series) COVID-19 VACCINE (4 - Pfizer series) [facility] Start: 12-23-2021 Influenza vaccination INFLUENZA (#1) [facility] Start: 02-06-2020 Urine microalbumin profile DTaP,Tdap,Td Vaccine (6 - Td or Tdap) [facility] Start: 2018 HPV TESTING HPV TESTING [facility] Start: 2009 PAP TESTING PAP TESTING [facility] Start: 2009 Screening for malignant neoplasm of cervix Cervical Cancer Screening [facility] Start: 09-29-2007 Urine microalbumin profile DTAP,TDAP,TD (1 - Tdap) [facility] Start: 11-30-2006 HPV Vaccine (2 - 3-dose series) HPV Vaccine (2 - 3-dose series) [facility] Start: 2006 Anxiety Screening Anxiety Screening [facility] Start: 2006 Depression Screening Depression Screening [facility] Start: 2006 HEPATITIS C SCREENING HEPATITIS C SCREENING [facility] Start: 2006 Hepatitis C screening Hepatitis C Screening [facility] Start: 2006 HIV SCREENING HIV SCREENING [facility] Start: 2006 HIV screening HIV Screening [facility] Start: 1988 HEPATITIS B (1 of 3 - 3-dose series) HEPATITIS B (1 of 3 - 3-dose series) [facility] 25-hydroxyvitamin D3 [Mass/volume] in Serum or Plasma Vitamin D 25 hydroxy Total Lab Routine Weight gain Ordered: 12/12/2024 [facility] Comment on above: Ordered: 12/12/2024 Actin smooth muscle IgG Ab [Units/volume] in Serum [facility] End: 10-09-2025 ADULT [place] ANORECTAL MANOMETRY [facility] ANORECTAL MANOMETRY Endoscopy Routine Pelvic floor dysfunction Chronic constipation 1 Occurrences starting 10/09/2024 until 10/09/2025 [facility] Work Phone: Comment on above: 1 Occurrences starting 10/09/2024 until 10/09/2025 [facility] ANORECTAL MANOMETRY [facility] ANORECTTX MANOMETRY Endoscopy Routine Pelvic floor dysfunction Chronic constipation 10/15/2024 [facility] Work Phone: Alpha 1 antitrypsin [Mass/volume] in Serum or Plasma [facility] Alpha 1 antitrypsin phenotyping [Identifier] in Serum or Plasma by Immunofixation [facility] CBC W Auto Different ial panel - Blood CBC and differential Lab Routine Weight gain History of alcohol dependence (HCC) Other fatigue Ordered: 12/12/2024 [facility] Comment on above: Ordered: 12/12/2024 Ceruloplasmin [Mass/volume] in Serum or Plasma [facility] CHLAMYDIA TRACHOMATI S (GENITO/STI) CHLAMYDIA TRACHOMATIS (GENITO/STI) Lab Routine Pain in female genitalia on intercourse Cystitis Ordered: 06/25/2024 [facility] Comment on above: Ordered: 06/25/2024 End: 05-23-2024 CLOSTRIDIUM DIFFICILE TOXIN BY EIA [facility] Comment on above: ONCE for 1 Occurrences starting 05/23/19 until 05/23/2024 Cobalamin (Vitamin B 12) [Mass/volume] in Serum or Plasma Vitamin B12 Lab Routine Elevated liver enzymes Weight gain History of alcohol dependence (HCC) Other fatigue Ordered: 12/12/2024 [facility] Comment on above: Ordered: 12/12/2024 Comprehensive metabo lic 2000 panel - Serum or Plasma Comprehensive metabolic panel Lab Routine Elevated liver enzymes Hypokalemia Weight gain History of alcohol dependence (HCC) Impaired fasting glucose Ordered: 12/12/2024 [facility] [employer] Comment on above: Ordered: 12/12/2024 End: 06-26-2023 Ct abdomen & pelvis w/o contrast material CT ABD/PEL WO IVCON Radiology Routine Bilious vomiting with nausea Right sided abdominal pain Nausea 1 Occurrences starting 05/27/2022 until 06/26/2023 [facility] Work Phone: Comment on above: 1 Occurrences starting 05/27/2022 until 06/26/2023 End: 05-14-2025 CT Guidance for core needle biopsy of Liver LIVER BIOPSY NEEDLE Endoscopy Routine ENGLISH (nonalcoholic steatohepatitis) 1 Occurrences starting 05/14/2024 until 05/14/2025 [facility] Work Phone: Comment on above: 1 Occurrences starting 05/14/2024 until 05/14/2025 Cytology Cervical or vaginal smear or scraping study Pap Smear Pathology and Cytology Routine Well woman exam with routine gynecological exam Ordered: 03/20/2024 [facility] [employer] Work Phone: Comment on above: Ordered: 03/20/2024 End: 11-01-2024 ECG COMPLETE ECG COMPLETE ECG Routine Gastroparesis 1 Occurrences starting 11/02/2023 until 11/01/2024 [facility] Work Phone: Comment on above: 1 Occurrences starting 11/02/2023 until 11/01/2024 End: 12-18-2024 ECG COMPLETE ECG COMPLETE ECG Routine Syncope and collapse 1 Occurrences starting 12/19/2023 until 12/18/2024 [facility] Work Phone: Comment on above: 1 Occurrences starting 12/19/2023 until 12/18/2024 End: 05-27-2023 EGD DIAGNOSTIC EGD DIAGNOSTIC Endoscopy Routine Bilious vomiting with nausea Right sided abdominal pain 1 Occurrences starting 05/27/2022 until 05/27/2023 [facility] Work Phone: Comment on above: 1 Occurrences starting 05/27/2022 until 05/27/2023 Electrogastrography dx transcutaneous EGG (ELECTROGASTROGRAPHY) Procedures Routine Gastroparesis Ordered: 09/14/2022 [facility] Work Phone: Comment on above: Ordered: 09/14/2022 ENTERIC BACTERIAL PA BELEM BY PCR [facility] Work Phone: Comment on above: Release Upon Ordering for 1 Occurrences starting 05/22/2024 End: 04-26-2025 Flexible sigmoidoscopy study COLONOSCOPY DIAGNOSTIC Endoscopy Routine BRBPR (bright red blood per rectum) 1 Occurrences starting 04/26/2024 until 04/26/2025 [facility] Comment on above: 1 Occurrences starting 04/26/2024 until 04/26/2025 Folate [Mass/volume] in Serum or Plasma Folate Lab Routine Elevated liver enzymes Weight gain History of alcohol dependence (HCC) Other fatigue Ordered: 12/12/2024 [facility] Comment on above: Ordered: 12/12/2024 Hemoglobin A1c/Hemoglobin.total in Blood Hemoglobin A1c Lab Routine Weight gain Impaired fasting glucose Ordered: 12/12/2024 [facility] Comment on above: Ordered: 12/12/2024 Hepatitis A [...] with routine gynecological exam Ordered: 03/20/2024 [facility] Comment on above: Ordered: 03/20/2024 IgG [Mass/volume] in Serum or Plasma [facility] Iron + transferrin + TIBC Iron + transferrin + TIBC Lab Routine Elevated liver enzymes Weight gain Other fatigue Ordered: 12/12/2024 [facility] Comment on above: Ordered: 12/12/2024 Lipoprotein a [Moles/volume] in Serum or Plasma [facility] Liver ultrasound attenuation by transient elastography DDI VIBRATION CONTROLLED TRANSIENT ELASTOGRAPHY (VCTE) Endoscopy Routine Elevated LFTs Ordered: 04/26/2024 [facility] Comment on above: Ordered: 04/26/2024 Mitochondria M2 IgG Ab [Units/volume] in Serum [facility] Neisseria gonorrhoea e DNA [Presence] in Unspecified specimen by SHEILA with probe detection Neisseria gonorrhea DNA probe, direct Lab Routine Pain in female genitalia on intercourse Cystitis Ordered: 06/25/2024 [facility] Comment on above: Ordered: 06/25/2024 Nuclear Ab [Titer] i n Serum [facility] OUTSIDE VENDOR CARDI AC OUTPATIENT EXTENDED RHYTHM RECORDING (WITHOUT TELEMETRY) OUTSIDE VENDOR CARDIAC OUTPATIENT EXTENDED RHYTHM RECORDING (WITHOUT TELEMETRY) Holter Routine Syncope, unspecified syncope type Ordered: 12/19/2023 [facility] Comment on above: Ordered: 12/19/2023 Patient Education Depression in adults - Discharge instructions [facility] Health DC Instructions Know your Meds [facility] Work Phone: Patient referral [facility] Work Phone: End: 12-18-2024 STRESS ECHO TREADMILL STRESS ECHO TREADMILL Cardiology Routine Syncope, unspecified syncope type 1 Occurrences starting 12/19/2023 until 12/18/2024 [facility] Work Phone: Comment on above: 1 Occurrences starting 12/19/2023 until 12/18/2024 SURESWAB(R) ADVANCED VAGINITIS PLUS, TMA SURESWAB(R) ADVANCED VAGINITIS PLUS, TMA Pathology and Cytology Routine Pain in female genitalia on intercourse Cystitis Ordered: 06/25/2024 [facility] Work Phone: Comment on above: Ordered: 06/25/2024 SURGICAL PATHOLOGY [facility] Comment on above: Release Upon Ordering for 1 Occurrences starting 05/22/2024, 1 completed TSH W/REFLEX TO FT4 TSH W/REFLEX TO FT4 Lab Routine Weight gain History of alcohol dependence (HCC) Other fatigue Ordered: 12/12/2024 [facility] Comment on above: Ordered: 12/12/2024 End: 07-14-2023 Us abdominal real time w/image limited US ABD RT UPPER QUADRANT Radiology Routine Liver lesion 1 Occurrences starting 06/14/2022 until 07/14/2023 [facility] Work Phone: Comment on above: 1 Occurrences starting 06/14/2022 until 07/14/2023 Vitamin B1 Vitamin B1 Lab R outine Elevated liver enzymes Weight gain History of alcohol dependence (HCC) Ordered: 12/12/2024 [facility] [employer] Comment on above: Ordered: 12/12/2024 Vitamin B6 Vitamin B6 Lab R outine Elevated liver enzymes Weight gain History of alcohol dependence (HCC) Ordered: 12/12/2024 [facility] [employer] Work Phone: Comment on above: Ordered: 12/12/2024 XR Abdomen Supine an d Upright XR ABDOMEN 2V ROUTINE SUPINE W UPRIGHT/DECUB/CTL Radiology Routine Chronic idiopathic constipation 07/10/2024 11:30 AM EDT [facility] Work Phone: End: 11-08-2025 XR Abdomen Supine and Upright XR ABDOMEN 1V SUPINE Radiology Routine Pelvic floor dysfunction Chronic constipation 3x per week for 3 Occurrences starting 10/09/2024 until 11/08/2025 [facility] Comment on above: 3x per week for 3 Occurrences starting 0 10/09/2024 until 11/08/2025 [facility] Immunizations Immunization Date Immunization Notes Care Provider [facility] 09-06-2024 tetanus toxoid, redu rolanda diphtheria toxoid, and acellular pertussis vaccine, adsorbed Giovani Hagen MD Work Phone: [facility] [employer] 11-02-2021 SARS-CoV-2 mRNA (homjhabuuzk-uebi-jtzec se) vaccine Madhuri MISHRA [facility] 04-29-2021 SARS-CoV-2 (COVID-19 ) mRNA BNT-162b2 vax Madhuri MISHRA [facility] 03-03-2021 SARS-CoV-2 (COVID-19 ) mRNA BNT-162b2 vax Madhuri MISHRA [facility] Comment on above: Result Comment: 2022: TPVAL 02-09-2021 influenza virus vaccine, unspecified formulation [employer] [facility] 02-09-2021 influenza, injectabl e, quadrivalent, preservative free Zhen Blackston PT Work Phone: [facility] 03-16-2020 influenza virus vaccine, unspecified formulation Madhuri VuMedi [facility] 03-16-2020 Influenza, injectabl e, Madin Newman Canine Kidney, preservative free, quadrivalent Zhen Blackston PT Work Phone: [facility] 01-08-2018 influenza virus vaccine, unspecified formulation Madhuri VuMedi [facility] 01-08-2018 influenza, injectabl e, quadrivalent, contains preservative Zhen Blackston PT Work Phone: [facility] 01-08-2018 influenza, injectabl e, quadrivalent, preservative free Zhen Blackston PT Work Phone: [facility] 02-01-2017 influenza virus vaccine, unspecified formulation Madhuri VuMedi [facility] 02-01-2017 Influenza, injectabl e, Madin Newman Canine Kidney, preservative free, quadrivalent Zhen Blackston PT Work Phone: [facility] 03-25-2016 influenza virus vaccine, unspecified formulation Madhuri MISHRA [facility] 03-25-2016 influenza, injectabl e, quadrivalent, preservative free Zhen Burgess PT Work Phone: [facility] 02-05-2010 tetanus toxoid, redu rolanda diphtheria toxoid, and acellular pertussis vaccine, adsorbed Madhuri MISHRA [facility] 01-05-2007 hepatitis B vaccine, pediatric or pediatric/adolescent dosage Madhuri MISHRA [facility] 11-02-2006 hepatitis B vaccine, pediatric or pediatric/adolescent dosage Madhuri MISHRA [facility] 11-02-2006 HPV, unspecified formulation Madhuri MISHRA [facility] 11-02-2006 human papilloma viru s vaccine, quadrivalent Zhen Burgess PT Work Phone: [facility] 11-02-2006 meningococcal ACWY vaccine, unspecified formulation Madhuri MISHRA [facility] 11-02-2006 meningococcal polysaccharide (groups A, C, Y and W-135) diphtheria toxoid conjugate vaccine (MCV4P) Zhen Burgess PT Work Phone: [facility] 02-20-1998 hepatitis B vaccine, pediatric or pediatric/adolescent dosage Madhuri MISHRA [facility] 12-28-1993 diphtheria, tetanus toxoids and pertussis vaccine Zhen Burgess PT Work Phone: [facility] 12-07-1992 diphtheria, tetanus toxoids and pertussis vaccine Zhen Burgess PT Work Phone: [facility] 12-07-1992 measles, mumps and rubella virus vaccine Madhuri MISHRA [facility] 12-07-1992 trivalent poliovirus vaccine, live, oral Zhen Burgess PT Work Phone: [facility] 06-09-1992 diphtheria, tetanus toxoids and pertussis vaccine Zhen Burgess PT Work Phone: [facility] 06-09-1992 measles, mumps and rubella virus vaccine Madhuri MISHRA [facility] 06-09-1992 trivalent poliovirus vaccine, live, oral Zhen Burgess PT Work Phone: [facility] 10-31-1990 varicella virus vaccine Patr homer MISHRA [facility] 06-20-1990 diphtheria, tetanus toxoids and pertussis vaccine Zhen Burgess PT Work Phone: [facility] 05-21-1990 trivalent poliovirus vaccine, live, oral Zhen Burgess PT Work Phone: [facility] 01-10-1989 trivalent poliovirus vaccine, live, oral Zhen Burgess PT Work Phone: [facility] NEGATED: Highlighted row has not occurred!05-01-2019 influenza virus vaccine, live, attenuated, for intranasal use Madhuri MISHRA [facility] NEGATED: Highlighted row has not occurred!04-03-2019 influenza virus vaccine, live, attenuated, for intranasal use Madhuri MISHRA [facility] Payers Date Payer Category Payer Self-pay [id number] 2020 Private Health Insurance 1.2 .840.518339.1.13.693.2.7 .9.342429.524360.315 2020 Unknown 1.2.840.904592. 1.13.159.2.7 .3.125485.315 1988 Unknown [id number] 2.16.840.1.762104.3.579.2.1 82 1988 Unknown [id number] 2.16.840.1.449402.3.579.2.5 93 1988 Unknown [id number] 2.16.840.1.679075.3.579.2.5 93 1988 Unknown [id number] 2.16.840.1.679162.3.579.2.5 93 1988 Unknown [id number] 2.16.840.1.062361.3.579.2.5 93 1988 Unknown [id number] 2.16.840.1.497536.3.579.2.5 93 1988 Unknown [id number] 2.16.840.1.679385.3.579.2.5 93 1988 Unknown [id number] 2.16.840.1.320678.3.579.2.5 93 1988 Unknown [id number] 2.16.840.1.042431.3.579.2.5 93 1988 Unknown [id number] 2.16.840.1.680124.3.579.2.5 93 1988 Unknown [id number] 2.16.840.1.744447.3.579.2.5 93 1988 Unknown [id number] 2.16.840.1.067745.3.579.2.5 93 1988 Unknown [id number] 2.16.840.1.520461.3.579.2.5 93 1988 Unknown [id number] 2.16.840.1.044724.3.579.2.5 93 1988 Unknown [id number] 2.16.840.1.227818.3.579.2.1 77 1988 Unknown [id number] 2.16.840.1.549833.3.579.2.7 27 1988 Unknown [id number] 2.16.840.1.072365.3.579.2.7 27 1988 Unknown [id number] 2.16.840.1.688677.3.579.2.7 27 1988 Unknown [id number] 2.16.840.1.983834.3.579.2.1 259 1988 Unknown [id number] 2.16.840.1.744319.3.579.2.1 259 1988 Unknown [id number] 2.16.840.1.209593.3.579.2.1 259 1988 Unknown [id number] 2.16.840.1.904525.3.579.2.1 259 1988 Unknown [id number] 2.16.840.1.089605.3.579.2.1 259 1988 Unknown [id number] 2.16.840.1.313904.3.579.2.1 259 1988 Unknown [id number] 2.16.840.1.597418.3.579.2.1 259 1988 Unknown [id number] 2.16.840.1.432144.3.579.2.1 259 1988 Unknown [id number] 2.16.840.1.530142.3.579.2.1 259 1988 Unknown [id number] 2.16.840.1.977133.3.579.2.1 259 1988 Unknown [id number] 2.16.840.1.390763.3.579.2.1 259 1988 Unknown [id number] 2.16.840.1.301509.3.579.2.1 259 1988 Unknown [id number] 2.16.840.1.229829.3.579.2.1 259 1988 Unknown [id number] 2.16.840.1.621377.3.579.2.1 259 1988 Unknown [id number] 2.16.840.1.898931.3.579.2.1 259 1988 Unknown [id number] 2.16.840.1.858619.3.579.2.1 259 1988 Unknown [id number] 2.16.840.1.671893.3.579.2.1 259 1988 Unknown [id number] 2.16.840.1.846868.3.579.2.1 259 1988 Unknown [id number] 2.16.840.1.516546.3.579.2.1 259 1988 Unknown [id number] 2.16.840.1.612679.3.579.2.1 259 1988 Unknown [id number] 2.840.1.574634.3.579.2.1 259 1988 Unknown [id number] 2.16.840.1.179195.3.579.2.1 259 1988 Unknown [id number] 2.16840.1.426987.3.579.2.1 259 1988 Unknown [id number] 2.16.840.1.432733.3.579.2.1 259 1988 Unknown [id number] 2.16840.1.393949.3.579.2.1 259 1988 Unknown [id number] 2.16.840.1.172032.3.579.2.1 259 1988 Unknown [id number] 2.16.840.1.179757.3.579.2.1 259 1988 Unknown [id number] 2.16.840.1.370505.3.579.2.1 259 1988 Unknown [id number] 2.16.840.1.267961.3.579.2.1 259 1988 Unknown [id number] 2.16.840.1.028122.3.579.2.1 259 1988 Unknown [id number] 2.16.840.1.547463.3.579.2.1 259 1988 Unknown [id number] 2.16.840.1.664840.3.579.2.1 259 1988 Unknown [id number] 2.16.840.1.974271.3.579.2.1 259 1988 Unknown [id number] 2.16.840.1.157806.3.579.2.1 259 1988 Unknown [id number] 2.16840.1.298851.3.579.2.1 259 1988 Unknown [id number] 2.16840.1.818687.3.579.2.1 259 1988 Unknown [id number] 2.840.1.188698.3.579.2.1 259 1988 Unknown [id number] 2.16840.1.546305.3.579.2.1 259 1988 Unknown [id number] 2.16840.1.394934.3.579.2.1 259 1988 Unknown [id number] 2.16840.1.359998.3.579.2.1 259 1988 Unknown [id number] 2840.1.809926.3.579.2.1 259 1988 Unknown [id number] 2.16840.1.156233.3.579.2.1 259 1988 Unknown [id number] 2.16840.1.069892.3.579.2.1 259 1988 Unknown [id number] 2.16.840.1.101816.3.579.2.1 259 1988 Unknown [id number] 2.16840.1.472716.3.579.2.1 259 1988 Unknown [id number] 2.16.840.1.306390.3.579.2.1 259 1988 Unknown [id number] 2.16.840.1.904212.3.579.2.1 259 1988 Unknown [id number] 2.16.840.1.582594.3.579.2.1 259 1988 Unknown [id number] 2.16.840.1.125238.3.579.2.1 259 1988 Unknown [id number] 2.16.840.1.342960.3.579.2.1 259 1988 Unknown [id number] 2.16.840.1.665168.3.579.2.1 259 1959 Unknown [id number] Unknown 100 [facility] MEDCAID [id number] Unknown [id number] 2.16.840.1.815899.3.579.2.5 31 Social History Date Type Detail Facility Tobacco smoking stat us [facility] Unknown if ever smoked [facility] Work Phone: Start: 1990 Sex Assigned At Female [facility] Start: 03-28-2019 End: 05-27-2022 Tobacco smoking status SCIS Never smoked tobacco [facility] Start: 05-27-2022 End: 01-06-2025 Tobacco use and exposure Smokeless tobacco non-user [facility] Start: 05-27-2022 End: 12-30-2024 Alcohol intake Current drinker of alcohol (finding) [facility] Start: 03-28-2019 Alcohol Comment socially [facility] Start: 1990 Sex Assigned At Not on file [facility] Start: 10-17-2022 End: 11-02-2022 Sex Assigned At [facility] Start: 06-29-2022 End: 10-10-2024 Tobacco smoking status Ex-smoker (finding) [facility] Start: 01-24-2019 End: 12-31-2024 Tobacco smoking status Never [facility] [place] Start: 10-17-2022 End: 11-02-2022 History of Social function [facility] Start: 06-08-2021 Gender identity Identifies as female gender (finding) [facility] Start: 11-16-2021 End: 11-26-2021 Exposure to SARS-CoV-2 (event) Not sure [facility] Start: 08-17-2024 History of tobacco use [...] Start: 02-02-2013 End: 08-19-2024 Sex Female (finding) [facility] History of tobacco use Cigarette Smoker [facility] Sexual Orientation [facility] [place] Start: 01-06-2025 Tobacco smoking status NHIS Smokes tobacco daily [facility] Goals Date Patient Goal Desired Activity /State Personal health goal Personal health goal Functional Status Date Assessment Result Facility 01-06-2025 Patient Health Quest ionnaire 2 item (PHQ-2) [Reported] [facility] 01-06-2025 PHQ-9 quick depressi on assessment panel [Reported.PHQ] [facility] 10-08-2024 Patient Health Quest ionnaire 2 item (PHQ-2) [Reported] [facility] 10-08-2024 PHQ-9 quick depressi on assessment panel [Reported.PHQ] [facility] 09-25-2024 Patient Health Quest ionnaire 2 item (PHQ-2) [Reported] [facility] 09-25-2024 PHQ-9 quick depressi on assessment panel [Reported.PHQ] [facility] 09-17-2024 Patient Health Quest ionnaire 2 item (PHQ-2) [Reported] [facility] 09-02-2024 Patient Health [facility] ionnaire 2 item (PHQ-2) [Reported] [facility] 08-19-2024 Functional status Patient at [facility] Work Phone: 12-28-2023 Functional Status N/A [facility] 06-30-2022 Functional Status N/A [facility] Mental Status Date Assessment Result Facility 08-19-2024 Cognitive function Cognitive Sta tus Patient at [facility] Work Phone: Clinical Notes 05-03-2022 to [...] yearly wellness. Patient was seen in the [place] ER this morning for having chest pain, [...] tablet Take 20 mg by mouth Daily Dydikndlwfd-Qmtxdhcas-Nxmmkd (Trelegy Ellipta) 100-62.5-25 MCG/ACT aerosol powder INHALE [...] on file. documented in this encounter [facility] 01-01-2025 Note Patient Education Urology Kidney Stones [...] these instructions at home: Medicines ??? Take mbvy-spi-kgycpkb and prescription medicines only as told by [...] pale yellow. Thi (more content not included)... [facility] 12-30-2024 History of Present illness [...] Patient states that she was surfing in [place] when she injured her right ankle and [...] Acute biliary pancreatitis without infection or necrosis ([facility]) 03/21/2023 Calculus of gallbladder without cholecystitis without [...] disorder, unspecified (HCC) 09/02/2024 Alcohol withdrawal delirium ([facility]) 09/02/2024 Hypertension 09/02/2024 Sinus tachycardia 09/02/2024 Fall at home 09/10/2024 Extruding suture 09/25/2024 Lumbar radiculopathy 12/09/2024 Generalized anxiety disorder 12/12/2024 Obsessive-compulsive disorder 12/12/2024 Pelvic floor dysfunction 10/11/2024 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 Right ovarian cyst 12/12/2024 Morbid (severe) obesity due to excess calories ([facility]) 12/16/2024 Impaired fasting glucose 12/16/2024 Obesity, class [...] toenail 2015 Left ovarian cyst 03/01/2019 Pancreatitis ([facility]) Pap smear for cervical cancer screening 04/20/2022 [...] mg by mouth Daily, Disp: , Rfl: Khqeibixkcc-Lcjbgmcnr-Ikmapx (Trelegy Ellipta) 100-62.5-25 MCG/ACT aerosol powder , [...] < 3 seconds Digits 1-5 bilateral NEURO: [place] 5.07 monofilament was intact B/L. Vibratory [...] weeks JASON Conti documented in this encounter [facility] 12-30-2024 Instructions Emma Ying APRN.SALESPERSON HEARING AIDS - 12/30/2024 9:42 AM EDT Images from [...] to your home. I recommend Camilla in [place], as she is approximately 30 minutes from [...] a physical therapist. documented in this encounter [facility] 12-30-2024 History of Present illness Narrative Images from the original note were not included. [facility] SECTION FOR CHRONIC PELVIC PAIN OUTPATIENT VISIT DATE 12/30/2024 OUTPATIENT VISIT TYPE CONSULT REFERRING PROVIDER: Javy Boudreaux MD PRIMARY CARE PROVIDER: Giovani Hagen MD, MD PRIMARY AVIATION PROJECT MANAGER: Consultation requested by referring provider above for an opinion regarding Orion Harper, and my final recommendations will be communicated back to the requesting physician by way of shared medical record or letter via [place] mail. Recording using Apertio software for draft documentation of the visit was discussed with the patient/authorized district sales representative; all questions welcomed and answered. Patient/authorized district sales representative agreed to proceed CHIEF COMPLAINT/REASON [...] is not in contact with those individuals. Programs Assistant Hx: (page 3) Menarche: 9 Currently experiences: Not menstruating Duration of dysmenorrhea symptoms: n/a Currently missing school/work: N/A Prior dysmenorrhea treatment: Other, Hysterectomy Current control: Nothing History of STD: Negative history [place] intake LMP: Patient's last menstrual period was 05/25/2015. Cycles: Hysterectomy, Flow: n/a Intermenstrual spotting between periods: N/A Last pap: Pap Results: WNL 03/20/2024, HPV: History of abnormal pap: Yes [place]: (MA intake) Dyspareunia: both insertional and deep [...] Pain characteristics: (page 5) Pain started (month/year): 5912-1073 Inciting event: No obvious cause/do not know Onset: Gradual Duration of pain: 2-5 years Character of pain: Sharp, stabbing Wakes from sleep: No Radiation of pain: No Aggravating factors: [place]/Sexual contact Alleviating factors: Nothing makes it better Bowel habits: (page 12-13) Nausea/vomiting: endorses Diarrhea: denies Abdominal pain: denies Bloating: denies Constipation: denies Increased pain with bowel movements: denies Blood in stool: endorses Pain with change in frequency of stool: denies Pain with change in appearance of stool: denies Pain changes with bowel movements: denies. 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 The sensitive examination was discussed with the Patient or Patient's Authorized Tax Services Manager. As applicable, any other physician, advance practice provider, medical student, or other health professional student that will be observing or involved in the sensitive examination for educational or training purposes was discussed with the Patient or Authorized Tax Services Manager. The Patient or Authorized Tax Services Manager has agreed to proceed with the sensitive [...] with more than 50% of the total cxpt-mg-fpat time of the visit in counseling / [...] Drug use: Never documented in this encounter [facility] 12-30-2024 Note HNO ID: [id number] Author: EMMA YING APRN.CNP Service: ? Author Type: Nurse Practitioner Type: Progress Notes Filed: 12/30/2024 10:35 Note Text: [facility] SECTION FOR CHRONIC PELVIC PAIN OUTPATIENT VISIT DATE 12/30/2024 OUTPATIENT VISIT TYPE CONSULT REFERRING PROVIDER: Javy Boudreaux MD PRIMARY CARE PROVIDER: Giovani Hagen MD, MD PRIMARY AVIATION PROJECT MANAGER: Consultation requested by referring provider above for an opinion regarding Orion Harper, and my final recommendations will be communicated back to the requesting physician by way of shared medical record or letter via [place] mail. Recording using Apertio software for draft documentation of the visit was discussed with the patient/authorized district sales representative; all questions welcomed and answered. Patient/authorized district sales representative agreed to proceed CHIEF COMPLAINT/REASON [...] is not in contact with those individuals. Programs Assistant Hx: (page 3) Menarche: 9 Currently experiences: Not menstruating Duration of dysmenorrhea symptoms: n/a Currently missing school/work: N/A Prior dysmenorrhea treatment: Other, Hysterectomy Current control: Nothing History of STD: Negative history MA intake LMP: Patient's last menstrual period was 05/25/2015. Cycles: Hysterectomy, Flow: n/a Intermenstrual spotting between periods: N/A Last pap: Pap Results: WNL 03/20/2024, HPV: History of abnormal pap: Yes [place]: (MA intake) Dyspareunia: both insertional and deep [...] Pain characteristics: (page 5) Pain started (month/year): 9962-1957 Inciting event: No obvious cause/do not know Onset: Gradual Duration of pain: 2-5 years Character of pain: Sharp, stabbing Wakes from sleep: No Radiation of pain: No Aggravating factors: [place]/Sexual contact Alleviating factors: Nothing makes it better Bowel habits: (page 12-13) Nausea/vomiting: endorses Diarrhea: denies Abdominal pain: denies Bloating: denies Constipation: denies Increased pain with bowel movements: denies Blood in stool: endorses Pain with change in frequency of stool: (more content not included)... [facility] 12-26-2024 History of Present illness Narrative Images [...] chipping her ankle again while surfing in [place]. Despite receiving four steroid injections, she continues [...] refill for Trileptal will be sent to [facility] in [place]. 2. Ankle pain. The patient reports persistent [...] BID. This clinical note was created utilizing Duxter documentation system. All information has been thoroughly reviewed, corrected as necessary, and authenticated by the provider to ensure accuracy and completeness. On occasion, Duxter documentation system erroneously drops words or replaces a spoken word with a similar sounding word. Please notify with any questions or concerns regarding this clinical note. documented in this encounter [facility] 12-16-2024 Telephone encounter Note Pt called re: doxepin dosage, when she was discharged from the rehab in [place] they had her taking Doxepin 100mg- take 2 at bedtime--pt is requesting dose be updated and [facility] 12-16-2024 Miscellaneous Notes Pt called re: doxepin dosage, when she was discharged from the rehab in [place] they had her taking Doxepin 100mg- take 2 at bedtime--pt is requesting dose be updated and res[facility] documented in this encounter [facility] 12-16-2024 History of Present illness Narrative Associated Problem(s): PTSD (post-traumatic stress disorder) S/p rehab Associated Problem(s): Body mass index (BMI) 36.0-36.9, adult Can't exercise due to chip Associated Problem(s): Morbid (severe) obesity due to excess calories ([facility]) Weight loss Associated Problem(s): Obesity, class 2 Probably related to Diabetes Associated Problem(s): Nonalcoholic steatohepatitis (ENGLISH) F/Up with GI Numbers are improved since stopping alcohol Associated Problem(s): Weight gain Has seen [facility] in the past. Associated Problem(s): Lumbar radiculopathy [...] tablet Take 20 mg by mouth Daily Xmgcxvvoipt-Olgpkyiur-Ioecli (Trelegy Ellipta) 100-62.5-25 MCG/ACT aerosol powder INHALE [...] 2 MG capsule Weight gain Has seen [facility] in the past. Relevant Medications dapagliflozin (Farxiga) [...] on file. documented in this encounter [facility] 12-16-2024 Telephone encounter Note Adderall Sent. Primo.io Message. [facility] 12-16-2024 Miscellaneous Notes Adderall Sent. Primo.io Message. documented in this encounter [facility] 12-13-2024 History of Present illness Narrative Images [...] Patient states that she was surfing in [place] when she injured her right ankle and [...] Acute biliary pancreatitis without infection or necrosis ([facility]) 03/21/2023 Calculus of gallbladder without cholecystitis without [...] disorder, unspecified (HCC) 09/02/2024 Alcohol withdrawal delirium ([facility]) 09/02/2024 Hypertension 09/02/2024 Sinus tachycardia 09/02/2024 Fall [...] gastric emptying 09/12/2022 Gall stones Gestational hypertension ([facility]) H/O CT scan of chest 07/30/2018 Headache, tension-type 2024 HELLP syndrome ([facility]) History of being hospitalized History of colonoscopy 05/28/2019 History of diagnostic ultrasound 03/23/2018 History of diagnostic ultrasound 12/10/2021 History of esophagogastroduodenoscopy 06/30/2022 History of esophagogastroduodenoscopy 08/31/2022 History of HIDA scan 08/28/2021 History of medical problems 03/18/2020 History of medical problems 08/16/2021 History of medical problems 06/10/2022 Influenza A 05/07/2017 Ingrown toenail 2015 Left ovarian cyst 03/01/2019 Pancreatitis ([facility]) Pap smear for cervical cancer screening 04/20/2022 [...] mg by mouth Daily, Disp: , Rfl: Jsxyqjakqgo-Yshkdorbm-Hjyint (Trelegy Ellipta) 100-62.5-25 MCG/ACT aerosol powder , [...] < 3 seconds Digits 1-5 bilateral NEURO: [place]ullen 5.07 monofilament was intact B/L. Vibratory [...] day. JASON Conti documented in this encounter [facility] 12-12-2024 History of Present illness Narrative Images from the original note were not included. HPI Med Refill Additional comments: Doxepin, Ativan, Adderall both 10 and 30 mg Last edited by Marie Keller LPN on 12/12/2024 10:38 AM. Subjective Patient ID: Orion Harper is a 34 y.o. female who presents for [facility] ER follow up. Flowsheet Row Patient Outreach from 12/10/2024 in [facility] with Gifty Mireles LPN Hospital Information ED, Hospital or [facility] Facility Discharge? ED Patient has been contacted within 2 days of being seen in the ED Yes Diagnosis Gastritis Discharge Date 12/09/24 Discharged To: Home Setting Discharge Hospital [facility] Engagement Call Start Time 1444 Admission Date [...] 1348 States was in Mental Rehab in [place] recently. Saw Psychiatry on Monday, Dr. Maria Esther Amos, [facility]. Seeing Dr. Jatin Cabrera for her back, next appointment is in December. Has to reschedule that appointment she thinks due to having to be in [place] that day. Has tried Flexeril, prescription strength [...] tablet Take 20 mg by mouth Daily Dxcastqxmlo-Lqposqfuw-Vlnfgq (Trelegy Ellipta) 100-62.5-25 MCG/ACT aerosol powder INHALE [...] recent imaging. Pt can follow up with [facility] as needed. Hypokalemia - Comprehensive metabolic panel [...] Appointment As Scheduled. documented in this encounter [facility] 10-30-2024 Telephone encounter Note Refill declined. [facility] 10-30-2024 Miscellaneous Notes Refill declined. OV 10/08/24 Looks to be discontinued on 06/19/24 documented in this encounter [facility] 10-30-2024 Telephone encounter Note OV 10/08/24 Looks to be discontinued on 06/19/24 [facility] 10-23-2024 History of Present illness Narrative Radiology [...] PATIENT PRESENTS WITH AN IMPLANTABLE OR ATTACHED EDUCATIONAL SPEECH LANGUAGE CLINICIAN: No RADIOLOGY DEPARTMENT: General X-ray: Exam(s) Completed: Abdomen X-Ray: Abdomen PERIPHERAL IV DATA: Not applicable SIGNED BY: RT Xavier(Aroldo) October 23, 2024 2:10 PM documented in this encounter [facility] 10-23-2024 Note HNO ID: [id number] Author: ANNITA CAMP RT(Aroldo) Service: ? Author [...] PATIENT PRESENTS WITH AN IMPLANTABLE OR ATTACHED EDUCATIONAL SPEECH LANGUAGE CLINICIAN: No RADIOLOGY DEPARTMENT: General X-ray: Exam(s) Completed: Abdomen X-Ray: Abdomen PERIPHERAL IV DATA: Not applicable SIGNED BY: RT Xavier(R) October 23, 2024 2:[address] [facility] 10-15-2024 Note HNO ID: [id number] Author: MARIO HARPER APRN.CNP Service: ? Author Type: Nurse Practitioner Type: Progress Notes Filed: 10/15/2024 11:06 Note Text: SENSITIVE EXAMINATION CONSENT: The sensitive examination was discussed with the Patient or Patient's Authorized Tax Services Manager. As applicable, any other physician, advance practice provider, medical student, or other health professional student that will be observing or involved in the sensitive examination for educational or training purposes was discussed with the Patient or Authorized Tax Services Manager. The Patient or Authorized Tax Services Manager has agreed to proceed with the sensitive examination. [facility] 10-15-2024 History of Present illness Narrative SENSITIVE EXAMINATION CONSENT: The sensitive examination was discussed with the Patient or Patient's Authorized Tax Services Manager. As applicable, any other physician, advance practice provider, medical student, or other health professional student that will be observing or involved in the sensitive examination for educational or training purposes was discussed with the Patient or Authorized Tax Services Manager. The Patient or Authorized Tax Services Manager has agreed to proceed with the sensitive examination. documented in this encounter [facility]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 Work Phone: [phone]) [phone] History and physical note* Carol Winn MD [...] 2024 TIME: 1:39 PM documented in this encounterOhiohealth Doctors Hospital01-29-2025 Nurse Note* Lindsey Buckley RN - [...] Lindsey Buckley RN In Department: AMBULATORY SURGERY [facility]01-29-2025 Nurse Note* Lindsey Buckley RN - [...] In Department: AMBULATORY SURGERY documented in this encounterOhiohealth Doctors Hospital01-22-2025 Telephone encounter Note * Telephone Encounter - Rose Jarvis - 05/15/2024 3:56 PM EST Appts cxl, surgery notified to cxl. [facility]01-22-2025 Miscellaneous Notes* Telephone Encounter - Rose [...] time. Lydia Kelley DO documented in this encounterOhiohealth Doctors Hospital01-22-2025 History of Present illness Narrative* Milton [...] attenuation of the anterior [place] [address] Magnetic Resonance Report Signed Patient: ORION HARPER MR#: [id number] : 1990 Acct:[id number] Age/Sex: 33 / F ADM Date: 03/14/24 Loc: MRI Attending Dr: Laurie Trujillo M.D. Ordering Physician: Laurie Trujillo M.D. Date of Service: 03/14/24 Procedure(s): MR ankle RT wo con Accession Number(s): [id number] cc: GIOVANI HAGEN ; Laurie Trujillo M.D. [place] [id number] Patient Name: ORION HARPER MRN: [id number] date: 1990 Sex: F Assigned Patient Location: MRI Current Patient Location: Accession/Order Number: [id number] Exam Date: 03/14/2024 15:04 Report Date: 03/17/2024 [...] THE MORNING, Disp: 30 tablet, Rfl: 2 Rzjpxxgtwaf-Coksnfduz-Wzpsrn 100-62.5-25 MCG/ACT aerosol powder , Inhale 1 [...] are palpable bilateral, no edema noted Neuro: [place] 5.07 monofilament intact, vibratory sensation intact Derm: [...] Milton Fraire DPM FACFAS documented in this encounterSaint Luke's North Hospital–SmithvilleRzeggyhvpa15-45-4854 Telephone encounter Note* Telephone Encounter - VINH Roque - 05/10/2024 12:10 PM EST Pt was seen. OARRS reviewed, Rx sent into patient's pharmacy. [facility]villeAueailuclq78-22-4942 Miscellaneous Notes* Telephone Encounter - VINH Roque - 05/10/2024 12:10 PM EST Pt was seen. OARRS reviewed, Rx sent into patient's pharmacy. * Telephone Encounter - VINH Roque - 05/09/2024 1:07 PM EST Patient has appointment today. documented in this encounterSaint Luke's North Hospital–SmithvilleGwigjozgra81-93-8748 History of Present illness Narrative* Giovani Hagen [...] DAY IN THE MORNING 30 tablet 2 Rsdpnjvawin-Iqspgxghq-Qjcgvg 100-62.5-25 MCG/ACT aerosol powder Inhale 1 puff [...] of spine - Primary Relevant Medications HYDROcodone-acetaminophen ([place]) 5-325 MG tablet Other Relevant Orders Ambulatory referral to Pain Medicine No follow-ups on file. documented in this encounterSaint Luke's North Hospital–SmithvilleXpueqsslcp90-80-6086 Telephone encounter Note* Telephone Encounter - VINH Roque - 05/09/2024 1:07 PM EST Patient has appointment today. [facility]villeBudnxvdnut14-90-6861 History of Present illness Narrative* Prateek A [...] THE MORNING, Disp: 30 tablet, Rfl: 2 Gwjpomzunnv-Nbkesuinh-Egxztv 100-62.5-25 MCG/ACT aerosol powder , Inhale 1 [...] 0 min Stress: Stress Concern Present (04/18/2023) Citizen Of [place] [employer] Occupational Health - Occupational Stress Questionnaire Feeling of Stress : Very much Social Connections: Moderately Integrated (04/18/2023) Social Connection and Isolation Panel [NHANES] Frequency of Communication with Friends and Family: Three times a week Frequency of Social Gatherings with Friends and Family: Twice a week Attends Christianity Services: Never Active Member of Clubs or [...] base of the right foot MRI: [place] [address] Magnetic Resonance Report Signed Patient: ORION HARPER MR#: [id number] : 1990 Acct:[id number] Age/Sex: 33 / F ADM Date: 03/14/24 Loc: MRI Attending Dr: Laurie Trujillo M.D. Ordering Physician: Laurie Trujillo M.D. Date of Service: 03/14/24 Procedure(s): MR ankle RT wo con Accession Number(s): [id number] cc: GIOVANI HAGEN ; Laurie Trujillo M.D. [place] [id number] Patient Name: ORION HARPER MRN: [id number] date: 1990 Sex: F Assigned Patient Location: MRI Current Patient Location: Accession/Order Number: [id number] Exam Date: 03/14/2024 15:04 Report Date: 03/17/2024 [...] Prateek Pedraza DPM documented in this encounterSaint Luke's North Hospital–SmithvilleTtvslbireq47-31-1040 Telephone encounter Note* Telephone Encounter - Criss Mccrary - 05/06/2024 1:40 PM EST Echo was faxed to Anne-Marie @ [phone] & scanned into outside ep. Patient is having a procedure. Criss Mccrary [facility]01-13-2025 Miscellaneous Notes* Telephone Encounter - Criss Holm - 05/06/2024 1:40 PM EST Echo was faxed to Anne-Marie @ [phone] & scanned into outside ep. Patient is having a procedure. Criss Mccrary documented in this encounterOhiohealth Doctors Hospital01-10-2025 Telephone encounter Note * Telephone Encounter [...] seen at that time. Lydia Kelley DO [facility]01-09-2025 NoteHNO ID: [id number] Author: ZEHRA GRAY PA-C Service: ? Author Type: Physician Decision Analyst Type: Progress Notes Filed: 05/02/2024 11:34 Note [...] Int J Clin Exp Med. 2015 Jan 15;8(10):12345-80. PMID: 29367535; PMCID: BYR5603838. Ruthann Bob, Juan FANTASMA, Rico M, Cosmo F, Tawnya J, Everardo O, Leyla F, Franci M, Alejandro G, Dorie A, Gianna E, Leyla L, French G, Kashmir A, Vicente U, Jodi S, Franc P, Max V, Last V, Leena M, Neo MARIE. Refining the Baveno elastography criteria for the definition of compensated advanced chronic liver disease. J Hepatol. 2020;74(5):4015-1763. doi: 10.1016/j.jhep.2020.11.050. Epub 2019Apr 01. PMID: 06522920. Izabel Bob, Chastity Moran, Martha Bob, Xiao Bob, Joon Stevens, Nuria Roth, Trevin Roth, Trixie Kendrick. AASLD practice guidance on the clinical assessment and management of nonalcoholic fatty liver disease. Hepatology. 2022;77(5):2880-6308. doi:10.1097/HEP.9463369250277223ZjlhtdruySt. [facility] History of Present illness Narrative* Zehra [...] Int J Clin Exp Med. 2015 Jan 15;8(10):33037-04.PMID: 92539591; PMCID: [id number]. Ruthann Bob, Juan FANTASMA, Rico M, Cosmo F, Tawnya J, Everardo O, Leyla F, Franci M, Alejandro G, Dorie A, Gianna E, Leyla L, French G, Kashmir A, Vicente U, Zapata S, Jordan, Max V, Last V, Leena M, Neo MARIE. Refining the Baveno elastography criteria for the definition of compensated advanced chronic liver disease. J Hepatol. 2020;74(5):5309-8827. doi: 10.1016/j.jhep.2020.11.050. Ep2019Apr 01. PMID: 68055107. Izabel Bob, Chastity Moran, Martha M, Xiao M, Joon S, Nuria Roth, Trevin Roth, Trixie Kendrick.AASLD practice guidance on the clinical assessment and management of nonalcoholic fatty liver disease. Hepatology. 2022;77(5):1797- 1835. doi:10.1097/HEP.1918698438356733 documented in this encounterOhiohealth Doctors Hospital01-07-2025 History of Present illness Narrative* Sandy Catarino, ORE CHARGER - 04/30/2024 2:50 PM EST Reason for [...] on 05/23/[address] Starr at [facility]. MEDICATIONS Current Outpatient Medications Medication Instructions [...] escitalopram (LEXAPRO) 20 mg, Oral, Every morning Xtckggaxhtk-Rexigpqyt-Mdajld 100-62.5-25 MCG/ACT aerosol powder 1 puff, Inhalation, [...] Attention deficit hyperactivity disorder, predominantly inattentive type ([facility]) 09/23/2022 Bipolar disorder, in partial remission, most recent episode manic ([facility]) 09/23/2022 Diverticular disease of colon 09/23/2022 Dysphagia [...] Poor concentration 09/23/2022 Sacroiliitis, not elsewhere classified ([facility]) 09/23/2022 Skin pain 09/23/2022 Thyroid enlargement ([facility]) 09/23/2022 Atherosclerosis of aorta ([facility]) 06/16/2020 Atherosclerosis of both carotid arteries 11/16/2020 Atherosclerosis of coronary artery without angina pectoris ([facility]) 05/18/2021 Gastroesophageal reflux disease without esophagitis 07/09/2019 Gastroparesis 11/02/2022 Non-refractory idiopathic generalized epilepsy ([facility]) 11/22/2019 Osteoarthritis of knee 06/14/2019 Hypercholesterolemia ([facility]) 07/01/2021 Recurrent UTI 12/12/2022 Vitamin D deficiency 05/16/2019 Dizziness 12/13/2022 Acute nonintractable headache 12/13/2022 History of COVID-19 02/06/2023 Overweight 02/06/2023 Acute biliary pancreatitis without infection or necrosis 03/21/2023 Calculus of gallbladder without cholecystitis without obstruction 03/23/2023 Cholecystitis 04/18/2023 Encounter for postoperative care 04/18/2023 History of acute pancreatitis 04/18/2023 History of cholecystectomy 04/18/2023 Cough 04/18/2023 Anaphylactic syndrome 04/18/2023 PTSD (post-traumatic stress disorder) ([facility]) 02/24/2015 Tinea 10/03/2023 Weight gain 10/03/2023 Glucose intolerance 10/03/2023 Dyshidrosis 10/03/2023 Encounter for well adult exam without abnormal findings 12/04/2023 Cervical radiculopathy 12/26/2023 Obesity (BMI 35.0-39.9 without comorbidity) 02/06/2024 Localized edema 02/06/2024 Injury of right ankle 02/06/2024 Sprain of anterior talofibular ligament of right ankle 04/01/2024 Pain and swelling of left shoulder 04/03/2024 Asthmatic bronchitis with acute exacerbation ([facility]) 04/16/2024 Snoring 04/16/2024 Resolved Ambulatory Problems Diagnosis [...] nursing note reviewed. Exam conducted with a hospitality ambassador present. Vitals: Estimated body mass index is [...] Darwin Starr DO documented in this encounterSaint Luke's North Hospital–SmithvilleHowcfgvjuy44-10-1541 History of Present illness Narrative* Iliana Mercado [...] saw Dr. Hylton in 2021 in [facility]. 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 Hylton who is scaffold setter We discussed seeing endocrinology to help with [...] -Fibroscan Iliana Mercado PA-C documented in this encounterOhiohealth Doctors Hospital01-03-2025 NoteHNO ID: [id number] Author: ILIANA MERCADO PA-C Service: ? Author Type: Physician Decision Analyst Type: Progress Notes Filed: 04/26/2024 15:02 Note [...] saw Dr. Hylton in 2021 in [facility]. 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 Hylton who is scaffold setter We discussed seeing endocrinology to help with [...] I have pers (more content not included)...[facility]01-03-2025 Instructions* Patient Instructions* Iliana Mercado PA-C - [...] do not hesitate to send me a [employer] message or call. Iliana Mercado PA-C documented in this encounterOhiohealth Doctors Hospital01-03-2025 NoteHNO ID: [id number] Author: LYDIA KELLEY, DO Service: ? Author [...] to discuss consent (more content not included)...[facility]01-03-2025 History of Present illness Narrative* Lydia Kelley [...] Lydia Kelley D.O. M.P.H. documented in this encounterOhiohealth Doctors Hospital12-30-2024 Telephone encounter Note * Telephone Encounter - BALDO STRONG - 04/22/2024 9:58 AM EST Patient states she was seen in office on 04-16 and then later in the week she ended up at the Urgent Care due to her cough. She would like Eva Pearls called in for her cough. [facility]SmithvilleZqzpzxzoll87-84-8306 Miscellaneous Notes* Telephone Encounter - BALDO STRONG - 04/22/2024 9:58 AM EST Patient states she was seen in office on 04-16 and then later in the week she ended up at the Urgent Care due to her cough. She would like Eva Pearls called in for her cough. documented in this encounterSaint Luke's North Hospital–SmithvilleRsaqjsfitg61-50-4145 History of Present illness Narrative* Josephine Gilman NP - 04/18/2024 4:35 PM EST Images from the original note were not included. [address] , [address] [facility], [address] P: [phone] F: [phone] HPI Historian of HPI: patient Orion Harper [...] tablet; Refill: 0 documented in this encounterSaint Luke's North Hospital–SmithvilleLvzrzoidqy32-37-6734 Telephone encounter Note* Telephone Encounter - Solo [...] she is unable to do the treadmill [facility] Work Phone: [phone] Miscellaneous Notes* Telephone Encounter - Solo Mora [...] to do the treadmill documented in this encounterOhiohealth Doctors Hospital12-13-2024 Telephone encounter Note * Telephone Encounter - Criss Mccrary - 04/05/2024 1:01 PM EST Outside ep I have a copy @ my desk Criss Mccrary [facility]12-13-2024 Miscellaneous Notes* Telephone Encounter - Criss Holm - 04/05/2024 1:01 PM EST Outside ep I have a copy @ my desk Criss Mccrary documented in this encounterOhiohealth Doctors Hospital12-11-2024 History of Present illness Narrative* Deena Lyn, [...] DAY IN THE MORNING 30 tablet 2 Phnsusecjkp-Hgcngwpec-Dzxbrz 100-62.5-25 MCG/ACT aerosol powder INHALE 1 PUFF [...] follow-ups on file. documented in this encounterSaint Luke's North Hospital–SmithvilleOcjzuerlkl60-95-6323 Telephone encounter Note* Telephone Encounter - Criss Mccrary - 04/02/2024 3:50 PM EST This 'Ankle Surgery Clearance' was faxed over to Dr. Giovani Hagen (PCP) @ [phone] for signing. I spoke with the patient. Scanned into outside ep. Criss Mccrary [facility]12-10-2024 Miscellaneous Notes* Telephone Encounter - Criss Holm - 04/02/2024 3:50 PM EST This 'Ankle Surgery Clearance' was faxed over to Dr. Giovani Hagen (PCP) @ [phone] for signing. I spoke with the patient. Scanned into outside ep. Criss Mccrary documented in this encounterOhiohealth Doctors Hospital12-09-2024 Miscellaneous Notes* Telephone Encounter - Keri [...] Per my note, Was seen by Dr. Hlyton locally Will obtain labs and fibroscan results She had Nausea and vomiting with statin Couldn't tolerate metformin due to nausea/vomiting and diarrhea She can still follow up with Dr. Hylton who is scaffold setter We discussed seeing endocrinology to help with [...] - 29 U/L 72 High Lipase Order: [id number] Component Ref Range & Units 1 yr ago Lipase 13 - 60 U/L 260 High Hepatic Function Panel Order: [id number] Component Ref Range & Units 1 yr [...] g/dL 5.7 Low Hepatic Function Panel Order: [id number] Component Ref Range & Units 1 yr [...] ntains abnormal data COMPREHENSIVE METABOLIC PANEL Order: [id number] Component Ref Range & Units 1 yr [...] Filt Rate >60 mL/min/1.73m2 >60 Lipase Order: [id number] Component Ref Range & Units 1 yr [...] follow up with Dr. Hylton who is scaffold setter We discussed seeing endocrinology to help with [...] FRONTAL/LAT Carol Winn MD documented in this encounterOhiohealth Doctors Hospital12-09-2024 Telephone encounter Note * Telephone Encounter - Keri Jamil - 04/01/2024 11:18 AM EST Pt called to schedule, per message below. First Est slot is July 26 for VV. Please review and advise if a New Pt slot can be used for this Pt. Thank you, [facility]12-09-2024 History of Present illness Narrative* Giovani [...] DAY IN THE MORNING 30 tablet 2 Qawcffzgmfe-Isymqjzfv-Nckuoa 100-62.5-25 MCG/ACT aerosol powder INHALE 1 PUFF [...] follow-ups on file. documented in this encounterSaint Luke's North Hospital–SmithvilleNpevpqkrcw81-63-4312 Telephone encounter Note* Telephone Encounter - Carol Winn MD - 03/29/2024 9:06 PM EST I saw her in the past for this Per my note, Was seen by Dr. Hylton locally Will obtain labs and fibroscan results She had Nausea and vomiting with statin Couldn't tolerate metformin due to nausea/vomiting and diarrhea She can still follow up with Dr. Hylton who is scaffold setter We discussed seeing endocrinology to help with weight loss and insulin resistance We also discussed cutting back on ETOH to one drink a week (currently 3-4 drinks a week) Did she follow up with Dr. Hylton? She can schedule OV with me if she prefers [facility] Work Phone: [phone]) 312-995912-06-2024 Telephone encounter Note* Telephone Encounter - Connie [...] - 29 U/L 72 High Lipase Order: [id number] Component Ref Range & Units 1 yr ago Lipase 13 - 60 U/L 260 High Hepatic Function Panel Order: [id number] Component Ref Range & Units 1 yr [...] g/dL 5.7 Low Hepatic Function Panel Order: [id number] Component Ref Range & Units 1 yr [...] ntains abnormal data COMPREHENSIVE METABOLIC PANEL Order: [id number] Component Ref Range & Units 1 yr [...] Filt Rate >60 mL/min/1.73m2 >60 Lipase Order: [id number] Component Ref Range & Units 1 yr [...] follow up with Dr. Hylton who is scaffold setter We discussed seeing endocrinology to help with [...] XR CHEST 2V FRONTAL/LAT Carol Winn MD [facility]12-04-2024 Telephone encounter Note* Telephone Encounter - VINH Roque - 03/27/2024 1:03 PM EST OARRS reviewed, Rx sent into patient's pharmacy. [facility]SmithvilleCfykrnicto11-11-6031 Miscellaneous Notes* Telephone Encounter - VINH Roque - 03/27/2024 1:03 PM EST OARRS reviewed, Rx sent into patient's pharmacy. * Telephone Encounter - Monet Motley MA - 03/27/2024 12:35 PM EST Per hieu to increase tramadol 50mg 2 po every 6 prn documented in this encounterSaint Luke's North Hospital–SmithvilleOhmvmykraj90-25-8164 Telephone encounter Note* Telephone Encounter - Monet Motley MA - 03/27/2024 12:35 PM EST Per hieu to increase tramadol 50mg 2 po every 6 prn [facility]–SmithvilleUwsglwpadd38-52-2348 Telephone encounter Note* Telephone Encounter - Giovani Hagen MD - 03/25/2024 3:59 PM EST Images from the original note were not included. Patient: Orion Harper : 1990 PCP: Giovani Hagen MD Orion Harper is a 33 y.o. female presenting today [facility]up [facility]. The main problem requiring [...] Flowsheet Row Patient Outreach from 01/17/2024 in [facility] with [facility] Information Discharge Date 01/10/24 Discharged To: Home Setting Discharge Hospital [facility] Engagement Call Start Time 1232 Admission Date [...] Time 1233 No follow-ups on file. [facility]–SmithvilleBkheujjufs75-77-7660 Miscellaneous Notes* Telephone Encounter - Giovani Hagen MD - 03/25/2024 3:59 PM EST Images from the original note were not included. Patient: Orion Harper : 1990 PCP: Giovani Hagen MD Orion Harper is a 33 y.o. female presenting today for follow-up [facility]. The main problem requiring [...] Flowsheet Row Patient Outreach from 01/17/2024 in [facility] with [facility] Information Discharge Date 01/10/24 Discharged To: Home Setting Discharge Hospital [facility] Engagement Call Start Time 1232 Admission Date [...] in the chart. documented in this encounterSaint Luke's North Hospital–SmithvilleRkesbljxpl85-71-8538 Telephone encounter Note* Telephone Encounter - BALDO STRONG - 03/25/2024 1:02 PM EST Patient called asking about the results of her MRI, please advise. Results are in the chart. [facility]–SmithvilleIegnhowgye61-85-2702 History of Present illness Narrative* Sandy Toribio [...] escitalopram (LEXAPRO) 20 mg, Oral, Every morning Dgoblqdlype-Dbvpiazxz-Aydsyx 100-62.5-25 MCG/ACT aerosol powder INHALE 1 PUFF [...] Attention deficit hyperactivity disorder, predominantly inattentive type ([facility]) 09/23/2022 Bipolar disorder, in partial remission, most recent episode manic ([facility]) 09/23/2022 Diverticular disease of colon 09/23/2022 Dysphagia 09/23/2022 Elevated liver enzymes 09/23/2022 Exercise induced bronchospasm ([facility]) 09/23/2022 Finding of above normal blood pressure 09/23/2022 History of hysterectomy 09/23/2022 Hyperglycemia 09/23/2022 Hypersexuality 09/23/2022 Insomnia 09/23/2022 Irritable bowel syndrome with constipation 09/23/2022 Mild intermittent asthma without complication ([facility]) 09/23/2022 Mood swings 09/23/2022 Nephrolithiasis 09/23/2022 Nonalcoholic steatohepatitis (ENGLISH) 09/23/2022 Other specified abnormal findings of blood chemistry 09/23/2022 Poor concentration 09/23/2022 Sacroiliitis, not elsewhere classified ([facility]) 09/23/2022 Skin pain 09/23/2022 Thyroid enlargement ([facility]) 09/23/2022 Atherosclerosis of aorta ([facility]) 06/16/2020 Atherosclerosis of both carotid arteries 11/16/2020 Atherosclerosis of coronary artery without angina pectoris ([facility]) 05/18/2021 Gastroesophageal reflux disease without esophagitis 07/09/2019 Gastroparesis 11/02/2022 Non-refractory idiopathic generalized epilepsy ([facility]) 11/22/2019 Osteoarthritis of knee 06/14/2019 Hypercholesterolemia ([facility]) 07/01/2021 Recurrent UTI 12/12/2022 Vitamin D deficiency 05/16/2019 Dizziness 12/13/2022 Acute nonintractable headache 12/13/2022 History of COVID-19 02/06/2023 Overweight 02/06/2023 Acute biliary pancreatitis without infection or necrosis 03/21/2023 Calculus of gallbladder without cholecystitis without obstruction 03/23/2023 Cholecystitis 04/18/2023 Encounter for postoperative care 04/18/2023 History of acute pancreatitis 04/18/2023 History of cholecystectomy 04/18/2023 Cough 04/18/2023 Anaphylactic syndrome 04/18/2023 PTSD (post-traumatic stress disorder) ([facility]) 02/24/2015 Tinea 10/03/2023 Weight gain 10/03/2023 Glucose [...] nursing note reviewed. Exam conducted with a hospitality ambassador present. Vitals: Estimated body mass index is [...] Darwin Starr DO documented in this encounterSaint Luke's North Hospital–SmithvilleQnmjfvrxlr01-23-5243 Telephone encounter Note* Telephone Encounter - VINH Roque - 03/07/2024 11:20 AM EST OARRS reviewed, Rx sent into patient's pharmacy. [place] [id number] Miscellaneous Notes* Telephone Encounter - VINH Roque - 03/07/2024 11:20 AM EST OARRS reviewed, Rx sent into patient's pharmacy. documented in this encounterSaint Luke's North Hospital–SmithvilleJcawwfmrqb29-50-6715 Telephone encounter Note* Telephone Encounter - VINH Roque - 03/07/2024 9:14 AM EST OARRS reviewed, Rx sent into patient's pharmacy. [place] [address]Xavgabhpyc02-80-3655 Miscellaneous Notes* Telephone Encounter - VINH Roque - 03/07/2024 9:14 AM EST OARRS reviewed, Rx sent into patient's pharmacy. * Telephone Encounter - Sasha Ng - 03/06/2024 4:22 PM EST ALPRAZolam (Xanax) 0.5 MG tablet [facility] documented in this encounterSaint Luke's North Hospital–SmithvilleHuqybjoktg40-15-0551 History of Present illness Narrative* Arun Hernadez [...] to be instructed in home exercise program. Data Operations Director Goals: To be met in 10 weeks [...] 2:57 PM EST documented in this encounterSaint Luke's North Hospital–SmithvilleDnnxkhnxdo42-02-2676 Telephone encounter Note* Telephone Encounter - Sasha Ng - 03/06/2024 4:22 PM EST ALPRAZolam (Xanax) 0.5 MG tablet [facility]SmithvilleMlevbosgav81-24-5434 History of Present illness Narrative* Zhen Burgess, [...] sign below. Date: documented in this encounterSaint Luke's North Hospital–SmithvilleXeujppylzu53-56-6764 History of Present illness Narrative* Giovani Hagen [...] DAY IN THE MORNING 30 tablet 2 Rnxygbpvbjp-Fowcargkk-Axmjew 100-62.5-25 MCG/ACT aerosol powder INHALE 1 PUFF [...] follow-ups on file. documented in this encounterSaint Luke's North Hospital–SmithvilleClyykkttsh15-39-1517 Telephone encounter Note* Telephone Encounter - Millicent Cordova - 01/29/2024 11:22 AM EDT 25 [facility] out to 10/21/24 [id number] Miscellaneous Notes* Telephone Encounter - Millicent Cordova - 01/29/2024 11:22 AM EDT 25 visits out to 10/21/24 documented in this encounterSaint [id number] History of Present illness Narrative* Acacia Vigil, [...] escitalopram (LEXAPRO) 20 mg, Oral, Every morning Luqjefrwaeb-Tcsxwcswy-Wbyeru 100-62.5-25 MCG/ACT aerosol powder INHALE 1 PUFF [...] Attention deficit hyperactivity disorder, predominantly inattentive type ([facility]) 09/23/2022 Bipolar disorder, in partial remission, most recent episode manic ([facility]) 09/23/2022 Diverticular disease of colon 09/23/2022 Dysphagia 09/23/2022 Elevated liver enzymes 09/23/2022 Exercise induced bronchospasm ([facility]) 09/23/2022 Finding of above normal blood pressure 09/23/2022 History of hysterectomy 09/23/2022 Hyperglycemia 09/23/2022 Hypersexuality 09/23/2022 Insomnia 09/23/2022 Irritable bowel syndrome with constipation 09/23/2022 Mild intermittent asthma without complication ([facility]) 09/23/2022 Mood swings 09/23/2022 Nephrolithiasis 09/23/2022 Nonalcoholic steatohepatitis (ENGLISH) 09/23/2022 Other specified abnormal findings of blood chemistry 09/23/2022 Poor concentration 09/23/2022 Sacroiliitis, not elsewhere classified ([facility]) 09/23/2022 Skin pain 09/23/2022 Thyroid enlargement ([facility]) 09/23/2022 Atherosclerosis of aorta ([facility]) 06/16/2020 Atherosclerosis of both carotid arteries 11/16/2020 Atherosclerosis of coronary artery without angina pectoris ([facility]) 05/18/2021 Gastroesophageal reflux disease without esophagitis 07/09/2019 Gastroparesis 11/02/2022 Non-refractory idiopathic generalized epilepsy ([facility]) 11/22/2019 Osteoarthritis of knee 06/14/2019 Hypercholesterolemia ([facility]) 07/01/2021 Recurrent UTI 12/12/2022 Vitamin D deficiency 05/16/2019 Dizziness 12/13/2022 Acute nonintractable headache 12/13/2022 History of COVID-19 02/06/2023 Overweight 02/06/2023 Acute biliary pancreatitis without infection or necrosis 03/21/2023 Calculus of gallbladder without cholecystitis without obstruction 03/23/2023 Cholecystitis 04/18/2023 Encounter for postoperative care 04/18/2023 History of acute pancreatitis 04/18/2023 History of cholecystectomy 04/18/2023 Cough 04/18/2023 Anaphylactic syndrome 04/18/2023 PTSD (post-traumatic stress disorder) ([facility]) 02/24/2015 Tinea 10/03/2023 Weight gain 10/03/2023 Glucose [...] Abnormal LFTs Abnormal liver ultrasound 06/15/2022 Asthma ([facility]) COVID 03/11/2021 Delayed gastric emptying 09/12/2022 Gall [...] for cervical cancer screening 04/20/2022 Post depression ([facility]) HISTORY PAST MEDICAL HISTORY SOCIAL HISTORY Past [...] nursing note reviewed. Exam conducted with a hospitality ambassador present. Vitals: Estimated body mass index is [...] Darwin Starr DO documented in this encounterSaint [id number] History of Present illness Narrative* Giovani Hagen [...] DAY IN THE MORNING 30 tablet 2 Xojqetrjyhl-Kxdnfbulp-Bkazdg 100-62.5-25 MCG/ACT aerosol powder INHALE 1 PUFF [...] CT ANGIOGRAM CHEST 07/30/2018 CT ANGIOGRAM CHEST [facility] EGD 06/30/2022 Normal hypopharynx, [...] No follow-ups on file. documented in this [facility]09-16-2024 Telephone encounter Note* Telephone Encounter - Mala Hirsch - 01/08/2024 12:52 PM EDT [facility] [place] [facility] [place] [id number] Miscellaneous Notes* Telephone Encounter - Mala Hirsch - 01/08/2024 12:52 PM EDT [facility] [place] [facility] [place] documented in this [facility]09-05-2024 Hospital Discharge instructions Patient Education 12/28/2023 15:59:41 Kidney Stones, Tayb-pj-Zxgl Kidney Stones Kidney stones are rock-like masses [...] Follow these instructions at home: Medicines Take iiau-weh-aolmgqd and prescription medicines only as told by [...] provider. Document Revised: 12/02/2022 Document Reviewed: 12/02/2022 [employer] Patient Education 2023 [place]. Follow Up Care 11/07/2022 15:52:12 With:OLEG OSEI, BHAVESH Patterson, URL Address: When:1 year [facility] 09-03-2024 History of Present illness Narrative* Giovani [...] DAY IN THE MORNING 30 tablet 2 Zvjobitmfnn-Kyvcnihty-Mixxtw 100-62.5-25 MCG/ACT aerosol powder INHALE 1 PUFF [...] follow-ups on file. documented in this encounterSaint Luke's [facility] Hospital–SmithvillePenthsjxzj82-27-5405 History of Present illness Narrative* Belle Mckoy Tech - 12/19/2023 3:44 PM EDT EVENT MONITOR DISPOSABLE PATCH INSTRUCTIONS Patient Name: Orion Harper [facility] Number: [id number] Skin prepped and cleansed with alcohol Patch secured to prepped area Monitor Activated Serial #: [id number] Patient Instructed: Prescribed order timeframe Bathing guidelines Usage of event button and diary documentation Return of monitor at the end of prescribed order Call with problems [phone] or [phone] ext. [phone] Patient expresses a good understanding of instructions Tristian Pretty documented in this encounterOhiohealth [facility] Hospital08-27-2024 Instructions* Patient Instructions* Solo Mora MD - 12/19/2023 3:27 PM EDT Next Steps: 1). Please wear a heart monitor for 2 weeks and mail it back 2). Please get a stress echo done and follow up with me afterwards documented in this encounterOhiohealth Doctors Hospital08-27-2024 History of Present illness Narrative* Solo Mora MD - 12/19/2023 2:45 PM EDT Images from the original note were not included. [facility]hna Hooker Department of Cardiovascular Medicine SECTION OF CARDIAC PACING and ELECTROPHYSIOLOGY OUTPATIENT VISIT DATE December 19, 2023 OUTPATIENT VISIT TYPE NEW PRIMARY CARE PHYSICIAN: Giovani Hagen MD [address] [place] [id number] CHIEF COMPLAINT: Syncope, cardiac evaluation for family [...] had any workup done including Stress Echo, ekg monitor tech or 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 Reports symptoms of palpitations [...] had any workup done including Stress Echo, ekg monitor tech or 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 PLAN AND RECOMMENDATIONS: - Exercise stress echo for exertional syncope to rule out structural or arrhythmic cause - 2 week tina Fitzgerald personally interviewed, confirmed and edited the above information as obtained by others. CONTACT INFORMATION: Solo Mora MD documented in this encounterOhiohealth Doctors Hospital08-26-2024 Telephone encounter Note * Telephone Encounter - RT. Aroldo Calvo - 12/18/2023 10:09 AM EDT Patient had labwork performed on 12-13-2023. Dr. Colvin wanted you to be aware so you could review them. [facility]villeIlhyssjerd33-59-3410 Miscellaneous Notes* Telephone Encounter - RT. Aroldo Calvo - 12/18/2023 10:09 AM EDT Patient had labwork performed on 12-13-2023. Dr. Colvin wanted you to be aware so you could review them. documented in this encounterSaint Luke's North Hospital–SmithvilleEishefxham20-07-8199 Telephone encounter Note* Telephone Encounter - Criss Mccrary - 11/02/2023 10:39 AM EDT Images from the original note were not included. Records are in Care Everywhere: EP Referral- 11/01/23 (Dr. Shilo Dillon/Cardiology) Criss Mccrary [facility] Miscellaneous Notes* Telephone Encounter - Criss Holm - 11/02/2023 10:39 AM EDT Images from the original note were not included. Records are in Care Everywhere: EP Referral- 11/01/23 (Dr. Shilo Dillon/Cardiology) Criss Mccrary documented in this encounterOhiohealth Doctors Hospital11-27-2023 Miscellaneous Notes* Telephone Encounter - Charlette [...] PPI prior to transfer. documented in this encounterOhiohealth Doctors Hospital07-13-2023 Miscellaneous Notes* Telephone Encounter - Janny Frances - 11/03/2022 3:18 PM EDT PA for Ibsrela initiated electronically. Awaiting response [facility] ID# [id number] Rx BIN [id number] Rx PCN CLAIMCR Rx Grp STOH documented in this encounterOhiohealth Doctors Hospital07-12-2023 History of Present illness Narrative* Soraida Caldwell, PhD - 11/02/2022 5:16 PM EDT Behavioral Medicine [facility] Name: Orion Harper MR#: [id number] Date: 11/02/2022 Time: 1 hour Referred by: [...] given the website for the [facility] Behavioral Medicine Program and shown the relaxation recordings with the recommendation to practice this and the rationale behind their use. Follow-up with Dr. Conteh was discussed as well as encouraging her to continue her PTSD work with a local trauma therapist. Soraida Zhang, Ph.D. documented in this encounterOhiohealth Doctors Hospital07-12-2023 History of Present illness Narrative* Samuel Freeman MD - 11/02/2022 1:00 PM EDT Assessment ASSESSMENT 32 year old female with medical refractory gastroparesis. PLAN I discussed surgical therapy for gastroparesis in detail. Orionbianca Harper is candidate for furthermedical treatment. Needs to stop Wegovy May consider for wireless motility capsule study Constipation medication change per Dr. 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 Maria Dolores Corey, P Sp Ddsi Clinical Pool Please ask her to see BALANCE WHEEL FACER to r/o endometriosis there was a very slight abnormal wave (not strong) suggesting its possible Called and spoke with the patient and relayed providers message. documented in this [facility]06-27-2023 Miscellaneous Notes* Telephone Encounter - Karen Haney LPN - 10/18/2022 11:43 AM EDT PA initiated via [employer]. Await response. Covered: Retail, Mail Order Unknown: Specialty, Long-Term Care Group ID: [id number] Group name: BIN: [id number] PCN: CLAIMCR documented in this [facility]06-27-2023 History of Present illness Narrative* Maria Dolores Corey DO - 10/18/2022 7:49 AM EDT Images from the original note were not included. documented in this [facility]06-26-2023 Nurse Note* Janny Frances - 10/17/2022 10:47 AM EDT EGG completed. Able to drink the 500 ml of water without any difficulty. documented in this encounterOhiohealth Doctors Hospital05-22-2023 History of Present illness Narrative* Oziel [...] 10:11AM PATIENT DISCHARGED TO: Ambulatory patient, left [place] department area. A Diagnostic radioactive procedure has taken place, with no further precautions necessary other than routine body substance precautions. More information regarding radiation safety can be found usingthis link: [email or web address] SIGNATURE: RT Amber(R) PATIENT NAME: Orion Harper DATE: September 12, 2022 TIME: 2:45 PM PAGER/CONTACT #: documented in this encounterOhiohealth Doctors Hospital05-10-2023 Nurse Note* Wilma Limon RN - [...] Wilma Limon RN In Department: AMBULATORY SURGERY [facility]-10-[facility] Nurse Note* Wilma Limon RN - [...] In Department: AMBULATORY SURGERY documented in this encounterOhiohealth Doctors Hospital05-10-2023 History and physical note * Carol [...] DATE: August 31, 2022 TIME: 2:51 PM [facility]05-10-2023 History and physical note* Carol Winn [...] 2022 TIME: 2:51 PM documented in this encounterOhiohealth Doctors Hospital05-10-2023 Nurse Note* Ayleen Aj RN - [...] Ayleen Aj RN In Department: AMBULATORY SURGERY [facility]05-03-2023 Miscellaneous Notes* Telephone Encounter - Светлана Agosto Ma - 08/24/2022 3:59 PM EDT Lm to confirm procedure for 08-31-22 documented in this encounterOhiohealth Doctors Hospital03-14-2023 Hospital Discharge instructions Patient Education 07/05/2022 [...] MISHRA Address: [facility] [address] [place] [address]- Business (1) When:11/04/2022 08:39:10 Comments:With a stone metabolic work-up [facility]03-09-2023 Nurse Note* Wilma Limon RN - 06/30/2022 12:46 PM EST Pt denies any nausea at this time. Pt given 3 oz of apple juice per request and tolerating at this time. Pt denies any other s/s at this time, smiling in conversation, 500ml of Nacl completed as well. Pt reports she feels ready to go home. [facility]03-09-[facility] Nurse Note* Wilma Limon RN - [...] In Department: AMBULATORY SURGERY documented in this encounterOhiohealth Doctors Hospital03-09-2023 Nurse Note* Wilma Limon RN - [...] Pt resting in bed at this time. [facility]03-09-2023 Nurse Note* Wilma Limon RN [...] By: Wilma Limon In Department: AMBULATORY SURGERY [facility]03-09-2023 History and physical note* Carol [...] DATE: June 30, 2022 TIME: 11:35 AM [facility]03-09-2023 History and physical note* Carol Winn [...] 2022 TIME: 11:35 AM documented in this encounterOhiohealth Doctors Hospital03-09-2023 Nurse Note* Elissa Kwok RN - [...] Elissa Kwok RN In Department: AMBULATORY SURGERY [facility]03-02-2023 Miscellaneous Notes* Telephone Encounter - Светлана Agosto Ma - 06/23/2022 3:18 PM EST Confirmed procedure for 06-30-22 documented in this encounterOhiohealth Doctors Hospital02-22-2023 History of Present illness Narrative* Monet [...] 15, 2022 8:08 PM documented in this encounterOhiohealth Doctors Hospital02-21-2023 Miscellaneous Notes* Telephone Encounter - Wilma [...] MD 06/14/2022 9:35 AM EST Back to [facility] Milly, I reviewed the ultrasound done [...] if needed pending results documented in this encounterOhiohealth Doctors Hospital02-17-2023 History of Present illness Narrative* Diamond [...] 10, 2022 10:01 AM documented in this encounterOhiohealth Doctors Hospital02-03-2023 History of Present illness Narrative* Acacia [...] 27, 2022 12:29 PM documented in this encounterOhiohealth Doctors Hospital02-03-2023 History of Present illness Narrative* Carol [...] follow up with Dr. Hylton who is scaffold setter We discussed seeing endocrinology to help with [...] No follow-ups on file. documented in this encounterOhiohealth Doctors Hospital01-10-2023 Evaluation note* Encounter Date Diagnosis Assessment Notes Treatment Notes Treatment Clinical Notes Apr, ENGLISH (nonalcoholic steatohepatitis) (ICD-10 - K75.81) Apr, Abnormal ultrasound (ICD-10 - R93.89) Apr, Elevated liver enzymes (ICD-10 - R74.8) Apr, Liver cyst (ICD-10 - K76.89) [employer] Other Evaluation + Plan note Future Appointments Appointment Date:06/30/2022 10:00:00 AM Scheduled Provider: Location:[facility] Appointment Type:Urology CALL PAT FT Appointment Date:07/05/2022 08:15:00 AM Scheduled Provider: Location:[facility] Appointment Type:Urology FT Diagnostic Tests Pending * [facility] Appointment Date:11/07/2022 03:15:00 PM Scheduled Provider:Madhuri MISHRA MD [facility] Future Appointments Appointment Date:12/30/2024 03:15:00 PM Scheduled Provider:Madhuri MISHRA MD [facility] Appoint[facility] Type:URO Office Visit [facility] [place] evaluation + Plan note Future Appointments Appointment Date:12/31/2024 03:30:00 PM Scheduled Provider:Iliana Cramer PA-C Location:[facility] Appointment Type:URO Complex Office Visit [facility] [place] evaluation + Plan note Future Appointments Appointment Date:12/31/2025 03:30:00 PM Scheduled Provider:Iliana Cramer PA-C [facility] noteNo assessment information available [facility] Work Phone: [facility]* Diagnosis Fatty liver- Primary Other chronic nonalcoholic liver disease Bilious vomiting with nausea Right sided abdominal pain Abdominal pain, unspecified site Nausea Nausea alone History of diverticulitis SOB (shortness of breath) Shortness of breath documented in this encounter [facility] HospitalEvaluch[facility]* Diagnosis Liver lesion- Primary Other specified disorders of liver [facility] Diagnosis Gastroparesis- Primary [facility]* Diagnosis Gastroparesis- Primary [facility]* Diagnosis Irritable bowel syndrome with constipation- Primary Irritable bowel syndrome [facility]* Diagnosis Gastroparesis [facility]* Diagnosis Gastroparesis- Primary [facility]* Diagnosis SOB (shortness of breath) Shortness of breath [facility] Diagnosis Liver lesion Other specified disorders of liver [facility]* Diagnosis Elevated LFTs Other abnormal blood chemistry documented in this encounter [facility]* Diagnosis Bilious vomiting with nausea Right sided abdominal pain Abdominal pain, unspecified site Nausea Nausea alone documented in this encounter [facility]* Diagnosis Nausea Nausea alone documented in this encounter [facility]* Diagnosis Gastroparesis- Primary documented in this encounter [facility]* Diagnosis Syncope and collapse- Primary documented in this encounter [facility] note* Diagnosis Syncope, unspecified syncope type- Primary documented in this encounter [facility] note* Diagnosis Syncope, unspecified syncope type- Primary documented in this encounter [facility] note* Diagnosis Nausea- Primary Nausea alone PUD (peptic ulcer disease) Peptic ulcer, unspecified site, unspecified as acute or chronic, without mention of hemorrhage, perforation, or obstruction Nausea Nausea alone documented in this encounter [facility] note* Diagnosis PUD (peptic ulcer [...] perforation, or obstruction documented in this encounter [facility] note* Diagnosis Attention deficit hyperactivity [...] asthma (CMS/HCC)- Primary [facility]* Diagnosis Elevated LFTs- Primary Other abnormal blood chemistry BRBPR (bright red blood per rectum) Hemorrhage of rectum and anus documented in this encounter [facility]* Diagnosis Attention deficit hyperactivity disorder, [...] inattentive type (CMS/HCC) [facility]* Diagnosis Attention deficit hyperactivity [...] abnormal blood chemistry documented in this encounter [facility]* Diagnosis Elevated LFTs- Primary Other abnormal blood chemistry documented in this encounter [facility]* Diagnosis Attention deficit hyperactivity disorder, predominantly [...] in partial remission, most recent episode manic ([facility]) Tremors of nervous system- Primary Mild intermittent asthma without complication ([facility]) Moderate persistent asthmatic bronchitis with acute exacerbation ([facility])- Primary Sprain of anterior talofibular ligament of [...] ankle and foot [facility]* Diagnosis Sprain of anterior talofibular ligament of right ankle, initial encounter- Primary Right ankle instability Other joint derangement, not elsewhere classified, ankle and foot documented in this encounter [facility]* Diagnosis Attention deficit hyperactivity disorder, [...] spine- Primary [facility]* Diagnosis ENGLISH (nonalcoholic steatohepatitis)- Primary Other chronic nonalcoholic liver disease Right ankle instability Other joint derangement, not elsewhere classified, ankle and foot documented in this encounter [facility]* Diagnosis Attention deficit hyperactivity disorder, [...] cervix and uterus [facility]* Diagnosis BRBPR (bright red blood per rectum) Hemorrhage of rectum and anus documented in this encounter [facility]* Diagnosis Attention deficit hyperactivity disorder, [...] of impulse control PTSD (post-traumatic stress disorder) ([facility]) Posttraumatic stress disorder documented in [facility] encounter [facility]* Diagnosis Other specified dyspareunia- Primary Pelvic pain in female Unspecified symptom associated with female genital organs Pelvic pain in female- Primary Unspecified symptom associated with female genital organs Other specified dyspareunia [facility]* Diagnosis Pelvic pain in female- Primary Unspecified symptom associated with female genital organs Other specified dyspareunia [facility]* Diagnosis Chronic idiopathic constipation Unspecified constipation [facility]* Diagnosis Attention deficit hyperactivity disorder, predominantly inattentive type (CMS/HCC)- Primary Bipolar disorder, in partial remission, most recent episode manic ([facility]) Dizziness Dizziness and giddiness Nonintractable episodic headache, [...] epileptic syndromes, not intractable, without status epilepticus ([facility]) 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[facility]) Other disorder of impulse control PTSD (post-traumatic stress disorder) ([facility]) Posttraumatic stress disorder Peroneal tendon tear, right, [...] and respiratory abnormality 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), predominantly inattentive type (CMS/HCC) Bipolar disorder, in partial remission, most recent episode manic (CMS/HCC) Prediabetes Other abnormal glucose Anxiety- Primary Anxiety state, unspecified Generalized idiopathic epilepsy and epileptic syndromes, not intractable, 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) 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[facility]) Other disorder of impulse control PTSD (post-traumatic stress disorder) ([facility]) Posttraumatic stress disorder Anxiety Anxiety state, unspecified PTSD (post-traumatic stress disorder) ([facility] [facility] Posttraumatic stress disorder documented in this encounter [...] system- Primary Mild intermittent asthma without complication ([facility]) Moderate persistent asthmatic bronchitis with acute exacerbation ([facility])- Primary Sprain of anterior talofibular ligament of right ankle, subsequent encounter Snoring Other dyspnea and respiratory abnormality 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 Attention deficit [...] subsequent encounter- Primary documented in this encounter [facility]* Diagnosis Palpitation- Primary Palpitations [facility] Attention deficit hyperactivity disorder, [...] system- Primary Mild intermittent asthma without complication ([facility]) Moderate persistent asthmatic bronchitis with acute exacerbation ([facility])- Primary Sprain of anterior talofibular ligament of right ankle, subsequent encounter Snoring Other dyspnea and respiratory abnormality 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), predominantly inattentive type ([facility]) Bipolar disorder, in partial remission, most recent episode manic ([facility]) Prediabetes Other abnormal glucose Anxiety- Primary Anxiety state, unspecified Generalized idiopathic epilepsy and epileptic syndromes, not intractable, without status epilepticus ([facility]) 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[facility]) Other disorder of impulse control PTSD (post-traumatic stress disorder) ([facility]) Posttraumatic stress disorder 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 Anxiety Anxiety [...] in partial remission, most recent episode manic ([facility]) Anxiety Anxiety state, unspecified Sinus tachycardia Other specified cardiac dysrhythmias Fall in home, sequela- Primary Laceration of right knee, subsequent encounter Laceration of right knee without complication, sequela- Primary [facility] Diagnosis Rectal pain- Primary Anal or rectal pain Hemorrhoids, unspecified hemorrhoid type [facility] Diagnosis Attention deficit hyperactivity disorder, predominantly inattentive type (CMS/HCC)- Primary Bipolar disorder, in partial remission, most recent episode manic ([facility]) Dizziness Dizziness and giddiness Nonintractable episodic headache, unspecified headache type Attention deficit hyperactivity disorder, predominantly inattentive type (CMS/HCC)- Primary Anxiety Anxiety state, unspecified Bipolar disorder, in partial remission, most recent episode manic ([facility]) History of cholecystectomy Other acquired absence of [...] with panic disorder [facility] Diagnosis Pelvic floor dysfunction- Primary Pelvic muscle wasting Chronic constipation Unspecified constipation Gastroparesis [facility] Diagnosis Attention deficit hyperactivity disorder, [...] of status migrainosus [facility] Diagnosis Muscle spasm- Primary Spasm of muscle Pelvic floor dysfunction Pelvic muscle wasting Chronic constipation Unspecified constipation [facility] Pelvic floor dysfunction Pelvic muscle wasting Chronic constipation Unspecified constipation [facility] Diagnosis Pelvic floor dysfunction Pelvic muscle wasting Chronic constipation Unspecified constipation [facility] Diagnosis Pelvic floor dysfunction Pelvic muscle wasting Chronic constipation Unspecified constipation [facility] Diagnosis Attention deficit hyperactivity disorder, [...] Morbid (severe) obesity due to excess calories ([facility]) Impaired fasting glucose Obesity, class 2 Body mass index (BMI) 36.0-36.9, adult documented in this encounter [facility]* Diagnosis Attention deficit hyperactivity [...] Morbid (severe) obesity due to excess calories ([facility]) Impaired fasting glucose Obesity, class 2 Body [...] Morbid (severe) obesity due to excess calories ([facility]) Impaired fasting glucose Obesity, class 2 Body [...] in partial remission, most recent episode manic ([facility]) Dizziness Dizziness and giddiness Nonintractable episodic headache, unspecified headache type Attention deficit hyperactivity disorder, predominantly inattentive type- Primary Anxiety Anxiety state, unspecified Bipolar disorder, in partial remission, most recent episode manic ([facility]) History of cholecystectomy Other acquired absence of [...] in partial remission, most recent episode manic ([facility]) Tremors of nervous system- Primary Mild intermittent asthma without complication ([facility]) Moderate persistent asthmatic bronchitis with acute exacerbation ([facility])- Primary Sprain of anterior talofibular ligament of right ankle, subsequent encounter Snoring Other dyspnea and respiratory abnormality 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), predominantly inattentive type Bipolar disorder, in partial remission, most recent episode manic ([facility]) Prediabetes Other abnormal glucose Anxiety- Primary Anxiety state, unspecified Generalized idiopathic epilepsy and epileptic syndromes, not intractable, without status epilepticus ([facility]) Trichotillomania Other disorder of impulse control PTSD [...] Morbid (severe) obesity due to excess calories ([facility]) Impaired fasting glucose Obesity, class 2 Body mass index (BMI) 36.0-36.9, adult Other synovitis and tenosynovitis, right ankle and foot- Primary Right foot pain Pain in soft tissues of limb Other enthesopathy of right foot and ankle [facility] Diagnosis Chronic pelvic pain in female- [...] female genital organs [facility] Diagnosis Attention deficit hyperactivity disorder, [...] Morbid (severe) obesity due to excess calories ([facility]) Impaired fasting glucose Obesity, class 2 Body [...] Hospitalization History NONE ON THE LAST YEAR [facility] Other Hospital course Narrative No data available for this section [facility] Discharge instructions No data available for this section [facility] data available [facility] this [facility] Outpatient Procedure (Routine) - Authorized Specialty Diagnoses / Procedures Referred By Norma kennedy Referred To Contact [facility] Diagnoses Bilious vomiting with nausea Right sided abdominal pain Procedures EGD DIAGNOSTIC ESOPHAGOGASTRODUODENOSC OP[place] [address] [place] [address] [facility] [address] [place] [address] Referral ID Status Reason Start Date Expiration Date Visits Requested Visits Authorized [id number] Authorized Auto-Generat ed Referral 05/27/2022 05/27/2023 1 1 * MRI/CT (Routine) - Authorized Specialty Diagnoses / Procedures Referred By Norma kennedy Referred To Contact CT IMAGING Diagnoses Bilious vomiting with nausea Right sided abdominal pain Nausea Procedures CT ABD/PEL WO IVCON CT ABD & PEL[place] [address] [place] [address] Ct Imaging Referral ID Status Reason Start Date Expiration Date Visits Requested Visits Authorized [id number] Authorized Auto-Generat ed Referral 05/27/2022 06/26/2023 1 1 [facility] for referral (narrative)* Diagnostic Procedure Only (Routine) - Authorized Specialty Diagnoses / Procedures Referred By Contac t Referred To Contact US IM[facility] Diagnoses Liver lesion Procedures US ABD RT UPPER QUADRANT US ABDOMINAL REAL TIME W/IMAGE LIMITED Carol Winn [place] [id number] [place] [address] [facility] Referral ID Status Reason Start Date Expiration Date Visits Requested Visits Authorized [id number] Authorized Auto-Generat ed Referral 06/14/2022 07/14/2023 1 1 [facility] for referral (narrative)* Diagnostic Procedure Only (Routine) - Closed Specialty Diagnoses / Procedures Referred By Norma t Referred To Contact [facility] Diagnoses Liver lesion Procedures US ABD RT UPPER QUADRANT US ABDOMINAL REAL TIME W/IMAGE LIMITED Carol Winn MD [id number] [place] [address] [place] [address] Referral ID Status Reason Start Date Expiration Date V isits Requested Visits Authorized [id number] Closed Auto-Generate d Referral 06/14/2022 07/14/2023 1 1 [facility] for referral (narrative)* Diagnostic Procedure Only (Routine) - Closed Specialty Diagnoses / Procedures [facility] Referred To Contact [facility] Diagnoses Elevated LFTs Procedures US ABD RT UPPER QUADRANT US ABDOMINAL REAL TIME W/[place] [address] [place] [address] [place] [address] Referral ID Status Reason Start Date Expiration Date V isits Requested Visits Authorized [id number] Closed Auto-Generate d Referral 11/24/2021 12/24/2022 1 1 [facility] for referral (narrative)* Diagnostic Procedure Only (Routine) - Closed Specialty Diagnoses / Procedures Referred By Contac t Referred To Contact [facility] Diagnoses Nausea Procedures NM GASTRIC EMPTYING SOLID [place]STR[place] [address] [place] [address] [facility] [address] [id number] Referral ID Status Reason Start Date Expiration Date V isits Requested Visits Authorized [id number] Closed Auto-Generate d Referral 08/31/2022 09/30/2023 1 1 [facility] for referral (narrative)* Outpatient Procedure (Routine) - Authorized Specialty Diagnoses / Procedures Referred By Contac t Referred To Contact [facility] [place] Diagnoses Gastroparesis Procedures ECG COMPLETE ECG ROUTINE ECG W/LEAST 12 LDS W/I&R Solo Mora MD [address] [place] [address] [facility] [place] [address] Referral ID Status Reason Start Date Expiration Date Visits Requested Visits Authorized [id number] Authorized Auto-Generat ed Referral 11/02/2023 11/01/2024 1 1 T [facility] for referral (narrative)* Outpatient Procedure (Routine) - Authorized Specialty Diagnoses / Procedures [facility] Referred To Contact [facility] [place] Diagnoses Syncope and collapse Procedures ECG COMPLETE ECG ROUTINE ECG W/LEAST 12 LDS W/I&R Solo Mora MD [address] [place] [address] [facility] [address] [address] Referral ID Status Reason Start Date Expiration Date Visits Requested Visits Authorized [id number] Authorized Auto-Generat ed Referral 12/19/2023 12/18/2024 1 1 [facility] for referral (narrative)* Diagnostic Procedure Only (Routine) - Closed Specialty Diagnoses / Procedures Referred By Norma kennedy Referred To Contact [facility] Diagnoses Nausea Procedures NM GASTRIC EMPTYING SOLID [place]STR[place] [address] [place] [address] [facility] [address] [id number] Referral ID Status Reason Start Date Expiration Date V isits Requested Visits Authorized [id number] Closed Auto-Generate d Referral 08/31/2022 09/30/2023 1 1 * Outpatient Procedure (Routine) - Closed Specialty Diagnoses / Procedures Referred By Norma kennedy Referred To Contact [facility] Diagnoses PUD (peptic ulcer disease) Procedures EGD DIAGNOSTIC ESOPHAGOGASTRODUODENOSC OPY [place] [address] [place] [address] [facility] [address] [address] Referral ID Status Reason Start Date Expiration Date V isits Requested Visits Authorized [id number] Closed Auto-Generate d Referral 06/30/2022 07/01/2023 1 1 [facility] for referral (narrative)* Outpatient Procedure (Routine) - Closed Specialty Diagnoses / Procedures Referred By Norma kennedy Referred To Contact [facility] [place] Diagnoses PUD (peptic ulcer disease) Procedures EGD DIAGNOSTIC ESOPHAGOGASTRODUODENOSC OPY [place] [address] [place] [address] [address] Referral ID Status Reason Start Date Expiration Date V isits Requested Visits Authorized [id number] Closed Auto-Generate d Referral 06/30/2022 07/01/2023 1 1 * Outpatient Procedure (Routine) - Closed Specialty Diagnoses / Procedures Referred By Contac t Referred To Contact [facility] [place] [place] Diagnoses Bilious vomiting with nausea Right sided abdominal pain Procedures EGD DIAGNOSTIC ESOPHAGOGASTRODUODENOSC OPY [place] [address] [place] [address] [address] Referral ID Status Reason Start Date Expiration Date V isits Requested Visits Authorized [id number] Closed Auto-Generate d Referral 05/27/2022 05/27/2023 1 1 [facility] for referral (narrative)* Outpatient Procedure (Routine) - Authorized Specialty Diagnoses / Procedures Referred By Contac t Referred To Contact [facility] Diagnoses BRBPR (bright red blood per rectum) Procedures COLONOSCOPY DIAGNOSTIC COLONOSCOPY FLX DX W/COLLJ SPEC WHEN PFRMD Iliana Mercado PA-C [address] [place] [address] [address] Referral ID Status Reason Start Date Expiration Date Visits Requested Visits Authorized [id number] Authorized Auto-Generat ed Referral 04/26/2024 04/26/2025 1 1 * Outpatient Procedure (Routine) - Authorized Specialty Diagnoses / Procedures Referred By Contac t Referred To Contact [facility] Diagnoses Elevated LFTs Procedures DDI VIBRATION CONTROLLED TRANSIENT ELASTOGRAPHY (VCTE) LIVER ELASTOGRAPHY W/O IMAG W/I&R Iliana Mercado PA-C [address] [place] [address] [facility] [address] [place] [address] Referral ID Status Reason Start Date Expiration Date Visits Requested Visits Authorized [id number] Authorized Auto-Generat ed Referral 04/26/2024 04/26/2025 1 1 [facility] for referral (narrative)* Outpatient Procedure (Routine) - Pending Review Specialty Diagnoses / Procedures Referred By Norma t Referred To Contact [facility] Diagnoses ENGLISH (nonalcoholic steatohepatitis) Procedures LIVER BIOPSY NEEDLE BIOPSY LIVER NEEDLE PERCUTANEOUS Rosario Mcconnell I, MD [address] [place] [employer], [place] [id number] [address] [place] [phone] Referral ID Status Reason Start Date Expiration Date Visits Requested Visits Authorized [id number] Pending Review Auto-Generat ed Referral 05/14/2024 05/14/2025 1 1 [facility] for referral (narrative)* Outpatient Procedure (Routine) - Closed Specialty Diagnoses / Procedures [facility] Referred To Contact [facility] Diagnoses BRBPR (bright red blood per rectum) Procedures COLONOSCOPY DIAGNOSTIC COLONOSCOPY FLX DX W/COLLJ SPEC WHEN PFRMD Iliana Mercado PA-C [id number] [place], [place] [address] [place] [address] [address] [phone] Referral ID Status Reason Start Date Expiration Date V isits Requested Visits Authorized [id number] Closed Auto-Generate d Referral 04/26/2024 04/26/2025 1 1 [facility] for visit NarrativePATIENT HERE AT THE REQUEST OF DR. HAGEN FOR ENGLISH & ABNORMAL US. ULTRASOUND AND LABS IN REFERRAL. PATIENT STATES SHE FEELS LETHARGIC & HAS OCCASIONAL ABDOMINAL PAINNorth [employer] Other [employer] for visit Narrative* Diagnostic Procedure Only (Routine) - Closed Specialty Diagnoses / Procedures [facility] Referred To Contact [facility] Diagnoses Liver lesion Procedures US ABD RT UPPER QUADRANT US ABDOMINAL REAL [place] W/[place] [address] [place] [address] Us Imaging [id number] Referral ID Status Reason Start Date Expiration Date V isits Requested Visits Authorized [id number] Closed Auto-Generate d Referral 06/14/2022 07/14/2023 1 1 [facility] for visit Narrative* Diagnostic Procedure Only (Routine) - Closed Specialty Diagnoses / Procedures [facility] Referred To Contact [facility] Diagnoses Elevated LFTs Procedures US ABD RT UPPER QUADRANT US ABDOMINAL REAL [place] W/[place] [address] [place] [address] Us Imaging [id number] Referral ID Status Reason Start Date Expiration Date V isits Requested Visits Authorized [id number] Closed Auto-Generate d Referral 11/24/2021 12/24/2022 1 1 [facility] for visit Narrative* Diagnostic Procedure Only (Routine) - Closed Specialty Diagnoses / Procedures [facility] Referred To Contact [facility] Diagnoses Nausea Procedures NM GASTRIC EMPTYING SOLID [place]STRIC [place] [address] [place] [address] Molecular [facility] [address] [place], [place] [phone] Referral ID Status Reason Start Date Expiration Date V isits Requested Visits Authorized [id number] Closed Auto-Generate d Referral 08/31/2022 09/30/2023 1 1 [facility] for visit Narrative* Outpatient Procedure (Routine) - Closed Specialty Diagnoses / Procedures [facility] Referred To Contact [facility] Diagnoses PUD (peptic ulcer disease) Procedures EGD DIAGNOSTIC ESOPHAGOGASTRODUODENOSC OPY [place] [address] [place] [address] [facility] [address] [place] [address] Referral ID Status Reason Start Date Expiration Date V isits Requested Visits Authorized [id number] Closed Auto-Generate d Referral 06/30/2022 07/01/2023 1 1 [facility] for visit Narrative* Outpatient Procedure (Routine) - Closed Specialty Diagnoses / Procedures Referred By Norma kennedy Referred To Contact [facility] Diagnoses Bilious vomiting with nausea Right sided abdominal pain Procedures EGD DIAGNOSTIC ESOPHAGOGASTRODUODENOSC OPY [place] [address] [place] [address] [facility] [address] [place] [address] Referral ID Status Reason Start Date Expiration Date V isits Requested Visits Authorized [id number] Closed Auto-Generate d Referral 05/27/2022 05/27/2023 1 1 [facility] for visit Narrative* Rehabilitation - Outpatient (Routine) - Authorized Specialty Diagnoses / Procedures Referred By Norma kennedy Referred To Contact Physical Therapy Diagnoses Cervical radiculopathy Procedures PA OFFICE/OUTPATIENT NEW HIGH MDM 60 MINUTES Giovani Hagen MD 112 [facility] [address] [place] [address] Phone: tel: fax: Zhen Burgess, PT 112 [facility] [address] [place] [address] Phone: tel: fax: Referral ID Status Reason Start Date Expiration Date Visits Requested Visits Authorized [id number] Authorized Specialty Services Required 01/25/2024 10/21/2024 25 25 [facility] for visit Narrative* Rehabilitation - Outpatient (Routine) - Authorized Specialty Diagnoses / Procedures Referred By Norma kennedy Referred To Contact Physical Therapy Diagnoses Cervical radiculopathy Unspecified injury of right ankle, subsequent encounter Procedures PA OFFICE/OUTPATIENT NEW HIGH MDM 60 MINUTES Giovani Hagen MD 112 [facility] [address] [place] [address] Phone: tel: fax: Zhen Burgess, PT 112 [facility] [address] [place] [address] Phone: tel: fax: Referral ID Status Reason Start Date Expiration Date Visits Requested Visits Authorized [id number] Authorized Specialty Services Required 01/25/2024 10/21/2024 25 25 [facility] for visit Narrative* Outpatient Procedure (Routine) - Closed Specialty Diagnoses / Procedures Referred By Contac t Referred To Contact [facility] Diagnoses Elevated LFTs Procedures DDI VIBRATION CONTROLLED TRANSIENT ELASTOGRAPHY (VCTE) LIVER ELASTOGRAPHY W/O IMAG W/I&R Iliana Mercado PA-C [address] [place] [address] [address] Referral ID Status Reason Start Date Expiration Date V isits Requested Visits Authorized [id number] Closed Auto-Generate d Referral 04/26/2024 04/26/2025 1 1 [facility] for visit Narrative* Outpatient Procedure (Routine) - Closed Specialty Diagnoses / Procedures Referred By Contac t Referred To Contact [facility] Diagnoses BRBPR (bright red blood per rectum) Procedures COLONOSCOPY DIAGNOSTIC COLONOSCOPY FLX DX W/COLLJ SPEC WHEN PFRMD Iliana Mercado PA-C [address] [place] [address] [address] Referral ID Status Reason Start Date Expiration Date V isits Requested Visits Authorized [id number] Closed Auto-Generate d Referral 04/26/2024 04/26/2025 1 1 [facility] for visit Narrative* Diagnostic Procedure Only (Routine) - Closed Specialty Diagnoses / Procedures Referred By Contac t Referred To Contact [facility] Diagnoses Other specified dyspareunia Pelvic pain in female Procedures PELVIC US WHI US PELVIC NONOBSTETRIC REAL-TIME IMAGE COMPLETE Javy Boudreaux MD [address] [address] Phone: tel: fax: [address] [address] Referral ID Status Reason Start Date Expiration Date V isits Requested Visits Authorized [id number] Closed Auto-Generate d Referral 07/10/2024 07/10/2025 1 1 [facility] for visit Narrative* Diagnostic Procedure Only (Routine) - Closed Specialty Diagnoses / Procedures Referred By Contac t Referred To Contact XR IMAGING Diagnoses Chronic idiopathic constipation Procedures XR ABDOMEN 2V ROUTINE SUPINE W UPRIGHT/DECUB/CTL RADIOLOGIC EXAM ABDOMEN 2 VIEWS Iliana Mercado PA-C [address] [place] [address] Phone: tel: fax: [place] [address] Referral ID Status Reason Start Date Expiration Date V isits Requested Visits Authorized [id number] Closed Auto-Generate d Referral 07/09/2024 08/07/2025 1 1 [facility] for visit Narrative* Diagnostic Procedure Only (Routine) - Authorized Specialty Diagnoses / Procedures Referred By Contac t Referred To Contact [facility] IMAGING Diagnoses Pelvic floor dysfunction Chronic constipation Procedures XR ABDOMEN 1V SUPINE RADIOLOGIC EXAM ABDOMEN 1 VIEW Mario Harper, MANAGING EDITOR.[employer] [address] [place] [address] Phone: tel: fax: [place] [address] Referral ID Status Reason Start Date Expiration Date Visits Requested Visits Authorized [id number] Authorized Auto-Generat ed Referral 10/09/2024 11/08/2025 3 3 [facility] Summary Purpose Family History No Family [...] spine wo contrast Giovani Hagen MD [address] [address] Referral ID Status Reason Start Date Expiration Date V isits Requested Visits Authorized [id number] Pending Review 01/09/2024 07/07/2024 1 1 Specialty Diagnoses / Procedures Referred By Contac t Referred To Contact Diagnoses Attention deficit hyperactivity disorder (ADHD), predominantly inattentive type (CMS/HCC) Giovani Hagen MD [address] [address] Referral ID Status Reason Start Date Expiration Date Visits Re quested Visits Authorized [id number] Closed 1 1 Specialty Diagnoses / Procedures Referred By Contac t Referred To Contact Diagnoses Attention deficit hyperactivity disorder (ADHD), predominantly inattentive type (CMS/HCC) Giovani Hagen MD [address] [address] Referral ID Status Reason Start Date Expiration Date V isits Requested Visits Authorized [id number] Pending Review 01/08/2024 07/06/2024 1 1 Specialty Diagnoses / Procedures Referred By Contac t Referred To Contact [facility] [place] Diagnoses Syncope, unspecified syncope type Procedures CARDIOVASCULAR MEDICINE OP FOLLOW UP APPT ORDER Solo Mora MD [address] [place] [id number] [facility] [address] [address] Referral ID Status Reason Start Date Expiration Date Visits Requested Visits Authorized [id number] Ref Not Required PCP Requested Referral 12/28/2023 12/27/2024 1 1 Specialty Diagnoses / Procedures Referred By Contac t Referred To Contact [facility] [place] Diagnoses Syncope, unspecified syncope type Procedures STRESS ECHO TREADMILL ECHO TTHRC R-T 2D W/WO M-MODE COMPLETE REST&ST Solo Mora MD [address] [place] [address] [address] Referral ID Status Reason Start Date Expiration Date Visits Requested Visits Authorized [id number] Authorized Auto-Generat ed Referral 12/19/2023 12/18/2024 1 1 Specialty Diagnoses / Procedures Referred By Norma t Referred To Contact CT IMAGING Diagnoses Bilious vomiting with nausea Right sided abdominal pain Nausea Procedures CT ABD/PEL WO IVCON CT ABD & PEL[place] [address] [place] [address] [place] [address] Referral ID Status Reason Start Date Expiration Date V isits Requested Visits Authorized [id number] Closed Auto-Generate d Referral 05/27/2022 06/26/2023 1 1 Additional Source Comments INFORMATION SOURCE (unrecogn ized section and content) DATE CREATED AUTHOR 11/09/2018 [facility] DATE CREATED AUTHOR AUTHOR'S ORGANIZ ATION 08/23/2021 [facility] Special[facility] DATE CREATED AUTHOR AUTHOR'S ORGANIZ ATION 07/17/2022 [facility] DATE CREATED AUTHOR AUTHOR'S ORGANIZ ATION 03/22/2023 [facility] DATE CREATED AUTHOR AUTHOR'S ORGANIZ ATION 03/28/2023 [facility] DATE CREATED AUTHOR AUTHOR'S ORGANIZ ATION 04/07/2024 [facility] DATE CREATED AUTHOR AUTHOR'S ORGANIZ ATION 04/12/2024 [facility] DATE CREATED AUTHOR AUTHOR'S ORGANIZ ATION 09/26/2024 [facility] DATE CREATED AUTHOR AUTHOR'S ORGANIZ ATION 10/31/2024 [facility] DATE CREATED AUTHOR AUTHOR'S ORGANIZ ATION 12/31/2024 [facility] DATE CREATED AUTHOR AUTHOR'S ORGANIZ ATION 01/03/2025 [facility] DATE CREATED AUTHOR AUTHOR'S ORGANIZ ATION 01/07/2025 [facility] d[facility] Specialists EPIC Care Teams (unrecognized sec tion and content) Team Status: Active Member Role Status Dates Giovani Hagen MD Primary Care Provider Active Team Status: Inactive Member Role Status Dates Erwin Hylton MD Attending Provider Active Giovani Hagen MD Primary Care Provider Active Open Developer Operator Relationship Specialty Start Date End Date Giovani Hagen 112 [facility] [address] [place] [address] PCP - General Family Medicine 03/27/19 Open Developer Operator Relationship Specialty Start Date End Date [place]al[place] [address] [place] [address] [place] [address] PCP - General Family Medicine 03/27/19 Open Developer Operator Relationship Specialty Start Date End Date [place]le[place]al[place] [address] [place] [address] [place] [address] PCP - General Family Medicine 03/27/19 Open Developer Operator Relationship Specialty Start Date End Date HieuKiran mcclellanen Mabalay [address] [place] [address] [place] [address] PCP - General Family Medicine 03/27/19 Open Developer Operator Relationship Specialty Start Date End Date [place] [address] [place] [address] [place] [address] PCP - General Family Medicine 03/27/19 Open Developer Operator Relationship Specialty Start Date End Date [place] m[place]lellan [place]abalay [address] [place] [address] [place] [address] PCP - General Family Medicine 03/27/19 Open Developer Operator Relationship Specialty Start Date End Date [place] [address] [place] [address] [place] [address] PCP - General Family Medicine 03/27/19 Open Developer Operator Relationship Specialty Start Date End Date HieuKiranen Mabalay [address] [place] [address] [place] [address] PCP - General Family Medicine 03/27/19 Open Developer Operator Relationship Specialty Start Date End Date [place] [address] [place] [address] [place] [address] PCP - General Family Medicine 03/27/19 Open Developer Operator Relationship Specialty Start Date End Date [place] M[place]al[place] [address] [place] [address] [place] [address] PCP - General Family Medicine 03/27/19 Open Developer Operator Relationship Specialty Start Date End Date Giovani Hagen [address] [place] [address] [place] [address] PCP - General Family Medicine 03/27/19 Open Developer Operator Relationship Specialty Start Date End Date Giovani Hagen [address] [place] [address] [place] [address] PCP - General Family Medicine 03/27/19 Open Developer Operator Relationship Specialty Start Date End Date Giovani Hagen [address] [place] [address] [place] [address] PCP - General Family Medicine 03/27/19 Open Developer Operator Relationship Specialty Start Date End Date Giovani Hagen [address] [place] [address] [place] [address] PCP - General Family Medicine 03/27/19 Open Developer Operator Relationship Specialty Start Date End Date Giovani Hagen MD [address] [place] [address] [place] [address] PCP - General Family Medicine 03/27/19 Open Developer Operator Relationship Specialty Start Date End Date Giovani Hagen MD [address] [place] [address] [place] [address] PCP - General Family Medicine 03/27/19 Open Developer Operator Relationship Specialty Start Date End Date Giovani Hagen MD [address] [place] [address] [place] [address] PCP - General Family Medicine 03/27/19 Open Developer Operator Relationship Specialty Start Date End Date Giovani Hagen MD [address] [place] [address] [place] [address] PCP - General Family Medicine 03/27/19 Open Developer Operator Relationship Specialty Start Date End Date Giovani Hagen MD [address] [place] [address] [place] [address] PCP - General Family Medicine 03/27/19 Open Developer Operator Relationship Specialty Start Date End Date Giovani Hagen MD [address] [place] [address] [place] [address] PCP - General Family Medicine 03/27/19 Open Developer Operator Relationship Specialty Start Date End Date Giovani Hagen MD [address] [place] [address] [place] [address] PCP - General Family Medicine 03/27/19 Open Developer Operator Relationship Specialty Start Date End Date Giovani Hagen MD [address] [place] [address] [place] [address] PCP - General Family Medicine 03/27/19 Open Developer Operator Relationship Specialty Start Date End Date Giovani Hagen MD [address] [place] [address] [place] [address] PCP - General Family Medicine 03/27/19 Open Developer Operator Relationship Specialty Start Date End Date Giovani Hagen MD [address] [place] [address] [place] [address] PCP - General Family Medicine 03/27/19 Open Developer Operator Relationship Specialty Start Date End Date Giovani Hagen MD [address] [place] [address] [place] [address] PCP - General Family Medicine 03/27/19 Open Developer Operator Relationship Specialty Start Date End Date Giovani Hagen MD [address] [place] [address] [place] [address] PCP - General Family Medicine 03/27/19 Open Developer Operator Relationship Specialty Start Date End Date Giovani Hagen MD [address] [place] [address] [place] [address] PCP - General Family Medicine 03/27/19 Open Developer Operator Relationship Specialty Start Date End Date Giovani Hagen MD [address] [place] [address] [place] [address] PCP - Medical [facility] 10/22/18 04/23/99 Giovani Hagen MD [address] [facility] [address] [place] [address] PCP - General [facility] Medicine 08/30/22 Open Developer Operator Relationship Specialty Start Date End Date Giovani Hagen MD [address] [facility] [address] [place] [address] PCP - Medical [facility] [employer] 10/22/18 04/23/99 Giovani Hagen MD [address] [place] [address] [place] [address] PCP - General [facility] Medicine 08/30/22 Open Developer Operator Relationship Specialty Start Date End Date Giovani Hagen MD [address] [place] [address] [place] [address] PCP - Medical [facility] [employer] [facility] 10/22/18 04/23/99 Giovani Hagen MD [address] [place] [address] [place] [address] PCP - General Family Medicine 08/30/22 Open Developer Operator Relationship Specialty Start Date End Date Giovani Hagen MD [address] [place] [address] [place] [address] PCP - Medical [facility] [employer] [facility] 10/22/18 04/23/99 Giovani Hagen MD [address] [place] [address] [place] [address] PCP - General Family Medicine 08/30/22 Open Developer Operator Relationship Specialty Start Date End Date Giovani Hagen MD [address] [place] [address] [place] [address] PCP - Medical [facility] [employer] [facility] 10/22/18 04/23/99 Giovani Hagen MD [address] [place] [address] [place] [address] PCP - General Family Medicine 08/30/22 Open Developer Operator Relationship Specialty Start Date End Date Giovani Hagen MD [address] [place] [address] [place] [address] PCP - Medical [facility] 10/22/18 04/23/99 Giovani Hagen MD [address] [place] [address] [place] [address] PCP - General Family Medicine 08/30/22 Open Developer Operator Relationship Specialty Start Date End Date Giovani Hagen MD [address] [place] [address] [place] [address] PCP - Medical [facility] 10/22/18 04/23/99 Giovani Hagen MD [address] [place] [address] [place] [address] PCP - General Family Medicine 08/30/22 Open Developer Operator Relationship Specialty Start Date End Date Giovani Hagen MD [address] [place] [address] [place] [address] PCP - Medical [facility] 10/22/18 04/23/99 Giovani Hagen MD [address] [place] [address] [place] [address] PCP - General Family Medicine 08/30/22 Open Developer Operator Relationship Specialty Start Date End Date Giovani Hagen MD [address] [place] [address] [place] [address] PCP - Medical [facility] 10/22/18 04/23/99 Giovani Hagen MD [address] [place] [address] [place] [address] PCP - General Family Medicine 08/30/22 Open Developer Operator Relationship Specialty Start Date End Date Giovani Hagen MD [address] [place] [address] [place] [address] PCP - Medical [facility] [employer] [facility] 10/22/18 04/23/99 Giovani Hagen MD [address] [place] [address] [place] [address] PCP - General Family Medicine 08/30/22 Open Developer Operator Relationship Specialty Start Date End Date Giovani Hagen MD [address] [place] [address] [place] [address] PCP - Medical [facility] [employer] 10/22/18 04/23/99 Giovani Hagen MD [address] [place] [address] [place] [address] PCP - General Family Medicine 08/30/22 Open Developer Operator Relationship Specialty Start Date End Date Giovani Hagen MD [address] [place] [address] [place] [address] PCP - Medical [facility] [employer] 10/22/18 04/23/99 Giovani Hagen MD [address] [place] [address] [place] [address] PCP - General Family Medicine 08/30/22 Open Developer Operator Relationship Specialty Start Date End Date Giovani Hagen MD [address] [place] [address] [place] [address] PCP - Medical [facility] [employer] 10/22/18 04/23/99 Giovani Hagen MD [address] [place] [address] [place] [address] PCP - General Family Medicine 08/30/22 Open Developer Operator Relationship Specialty Start Date End Date Giovani Hagen MD [address] [place] [address] [place] [address] PCP - Medical [facility] [employer] [facility] 10/22/18 04/23/99 Giovani Hagen MD [address] [place] [address] [place] [address] PCP - General Family Medicine 08/30/22 Open Developer Operator Relationship Specialty Start Date End Date Giovani Hagen MD [address] [place] [address] [place] [address] PCP - Medical [facility] [employer] [facility] 10/22/18 04/23/99 Giovani Hagen MD [address] [place] [address] [place] [address] PCP - General Family Medicine 08/30/22 Open Developer Operator Relationship Specialty Start Date End Date Giovani Hagen MD [address] [place] [address] [place] [address] PCP - Medical [facility] [employer] 10/22/18 04/23/99 Giovani Hagen MD [address] [place] [address] [place] [address] PCP - General Family Medicine 08/30/22 Open Developer Operator Relationship Specialty Start Date End Date Giovani Hagen MD [address] [place] [address] [place] [address] PCP - [facility] [employer] 10/22/18 04/23/99 Giovani Hagen MD [address] [place] [address] [place] [address] PCP - General Family Medicine 08/30/22 Open Developer Operator Relationship Specialty Start Date End Date Giovani Hagen MD [address] [place] [address] [place] [address] PCP - [facility] [employer] 10/22/18 04/23/99 Giovani Hagen MD [address] [place] [address] [place] [address] PCP - General Family Medicine 08/30/22 Open Developer Operator Relationship Specialty Start Date End Date Giovani Hagen MD [address] [place] [address] [place] [address] PCP - Medical [facility] [employer] 10/22/18 04/23/99 Giovani Hagen MD [address] [place] [address] [place] [address] PCP - General Family Medicine 08/30/22 Open Developer Operator Relationship Specialty Start Date End Date Giovani Hagen MD [address] [place] [address] [place] [address] PCP - [facility] [employer] 10/22/18 04/23/99 Giovani Hagen MD [address] [place] [address] [place] [address] PCP - General Family Medicine 08/30/22 Open Developer Operator Relationship Specialty Start Date End Date Giovani Hagen MD [address] [place] [address] [place] [address] PCP - [facility] [employer] 10/22/18 04/23/99 Giovani Hagen MD [address] [place] [address] [place] [address] PCP - General Family Medicine 08/30/22 Open Developer Operator Relationship Specialty Start Date End Date Giovani Hagen MD [address] [place] [address] [place] [address] PCP - [facility] [employer] 10/22/18 04/23/99 Giovani Hagen MD [address] [place] [address] [place] [address] PCP - General Family Medicine 08/30/22 Open Developer Operator Relationship Specialty Start Date End Date Giovani Hagen MD [address] [place] [address] [place] [address] PCP - [facility] [employer] 10/22/18 04/23/99 Giovani Hagen MD [address] [place] [address] [place] [address] PCP - General Family Medicine 08/30/22 Open Developer Operator Relationship Specialty Start Date End Date Giovani Hagen MD [address] [place] [address] [place] [address] PCP - [facility] [employer] 10/22/18 04/23/99 Giovani Hagen MD [address] [place] [address] [place] [address] PCP - General Family Medicine 08/30/22 Open Developer Operator Relationship Specialty Start Date End Date Giovani Hagen MD [address] [place] [address] [place] [address] PCP - General Family Medicine 03/27/19 Open Developer Operator Relationship Specialty Start Date End Date Giovani Hagen MD [address] [place] [address] [place] [address] PCP - [facility] [employer] 10/22/18 04/23/99 Giovani Hagen MD [address] [place] [address] [place] [address] PCP - General Family Medicine 08/30/22 Open Developer Operator Relationship Specialty Start Date End Date Giovani Hagen MD [address] [place] [address] [place] [address] PCP - General Family Medicine 03/27/19 Deena Lyn CNP [address] [place] [address] [place] [address] [facility] Family Medicine 04/03/24 Open Developer Operator Relationship Specialty Start Date End Date Giovani Hagen MD [address] [place] [address] [place] [address] PCP - General Family Medicine 03/27/19 Deena Lyn CNP [address] [facility] [address] [place] [address] [facility] Family Medicine 04/03/24 Open Developer Operator Relationship Specialty Start Date End Date Giovani Hagen MD [address] [facility] [address] [place] [address] PCP - [facility] [employer] 10/22/18 04/23/99 Giovani Hagen MD [address] [facility] [address] [place] [address] PCP - General Family Medicine 08/30/22 Open Developer Operator Relationship Specialty Start Date End Date Giovani Hagen MD [address] [facility] [place] [address] PCP - [facility] [employer] 10/22/18 04/23/99 Giovani Hagen MD [address] [facility] [place] [address] PCP - General Family Medicine 08/30/22 Open Developer Operator Relationship Specialty Start Date End Date Giovani Hagen MD [address] [facility] [place] [address] PCP - [facility] [employer] 10/22/18 04/23/99 Giovani Hagen MD [address] [facility] [place] [address] PCP - General Family Medicine 08/30/22 Open Developer Operator Relationship Specialty Start Date End Date Giovani Hagen MD [address] [facility] [address] [place] [address] PCP - [facility] [employer] 10/22/18 04/23/99 Giovani Hagen MD [address] [facility] [address] [place] [address] PCP - General Family Medicine 08/30/22 Open Developer Operator Relationship Specialty Start Date End Date Giovani Hagen MD [address] [place] [address] [place] [address] PCP - [facility] 10/22/18 04/23/99 Giovani Hagen MD [address] [facility] [address] [place] [address] PCP - General Family Medicine 08/30/22 Open Developer Operator Relationship Specialty Start Date End Date Giovani Hagen MD [address] [facility] [address] [place] [address] PCP - [facility] [employer] 10/22/18 04/23/99 Giovani Hagen MD [address] [facility] [address] [place] [address] PCP - General Family Medicine 08/30/22 Open Developer Operator Relationship Specialty Start Date End Date Giovani Hagen MD [address] [facility] [address] [place] [address] PCP - Medical [facility] [employer] 10/22/18 04/23/99 Giovani Hagen MD [address] [facility] [address] [place] [address] PCP - General Family Medicine 08/30/22 Open Developer Operator Relationship Specialty Start Date End Date Giovani Hagen MD [address] [facility] [address] [place] [address] PCP - General Family Medicine 03/27/19 Deena Lyn CNP [address] [place] [address] [place] [address] [facility] Family Medicine 04/03/24 Open Developer Operator Relationship Specialty Start Date End Date Giovani Hagen MD [address] [place] [address] [place] [address] PCP - Medical [facility] [employer] 10/22/18 04/23/99 Giovani Hagen MD [address] [facility] [address] [place] [address] PCP - General Family Medicine 08/30/22 Open Developer Operator Relationship Specialty Start Date End Date Giovani Hagen MD [address] [facility] [address] [place] [address] PCP - Medical [facility] 10/22/18 04/23/99 Giovani Hagen MD [address] [facility] [address] [place] [address] PCP - General [facility] Medicine 08/30/22 Open Developer Operator Relationship Specialty Start Date End Date Giovani Hagen MD [address] [facility] [address] [place] [address] PCP - Medical [facility] 10/22/18 04/23/99 Giovani Hagen MD [address] [facility] [address] [place] [address] PCP - General Family Medicine 08/30/22 Open Developer Operator Relationship Specialty Start Date End Date Giovani Hagen MD [address] [facility] [address] [place] [address] PCP - General Family Medicine 03/27/19 Deena Lyn, SALESPERSON HEARING AIDS [address] [place] [address] [place] [address] Referring Family Medicine 04/03/24 Open Developer Operator Relationship Specialty Start Date End Date Giovani Hagen MD [address] [place] [address] [place] [address] PCP - General Family Medicine 03/27/19 Deena Lyn, SALESPERSON HEARING AIDS [address] [place] [address] [place] [address] Referring Family Medicine 04/03/24 Open Developer Operator Relationship Specialty Start Date End Date Giovani Hagen MD [address] [place] [address] [place] [address] PCP - General Family Medicine 03/27/19 Deena Lyn, SALESPERSON HEARING AIDS [address] [place] [address] [place] [address] Referring Family Medicine 04/03/24 Open Developer Operator Relationship Specialty Start Date End Date Giovani Hagen MD [address] [place] [address] [place] [address] PCP - [facility] [employer] 10/22/18 04/23/99 Giovani Hagen MD [address] [place] [address] [place] [address] PCP - General Family Medicine 08/30/22 Open Developer Operator Relationship Specialty Start Date End Date Giovani Hagen MD [address] [place] [address] [place] [address] PCP - Medical [facility] [employer] 10/22/18 04/23/99 Giovani Hagen MD [address] [place] [address] [place] [address] PCP - General Family Medicine 08/30/22 Open Developer Operator Relationship Specialty Start Date End Date Giovani Hagen MD [address] [place] [address] [place] [address] PCP - General Family Medicine 03/27/19 Deena Lyn, ISABEL [address] [place] [address] [place] [address] Referring Family Medicine 04/03/24 Open Developer Operator Relationship Specialty Start Date End Date Giovani Hagen MD [address] [place] [address] [place] [address] PCP - General Family Medicine 03/27/19 Deena Lyn, SALESPERSON HEARING AIDS [address] [place] [address] [place] [address] Referring Family Medicine 04/03/24 Open Developer Operator Relationship Specialty Start Date End Date Giovani Hagen MD [address] [place] [address] [place] [address] PCP - [facility] 10/22/18 04/23/99 Giovani Hagen MD [address] [place] [address] [place] [address] PCP - General Family Medicine 08/30/22 Open Developer Operator Relationship Specialty Start Date End Date Giovani Hagen MD [address] [place] [address] [place] [address] PCP - [facility] 10/22/18 04/23/99 Giovani Hagen MD [address] [place] [address] [place] [address] PCP - General Family Medicine 08/30/22 Open Developer Operator Relationship Specialty Start Date End Date Giovani Hagen MD [address] [place] [address] [place] [address] PCP - General Family Medicine 03/27/19 Deena Lyn, ISBAEL [address] [place] [address] [place] [address] Referring Family Medicine 04/03/24 Open Developer Operator Relationship Specialty Start Date End Date Giovani Hagen MD [address] [place] [address] [place] [address] PCP - [facility] 10/22/18 04/23/99 Giovani Hagen MD [address] [facility] [address] [place] [address] PCP - General Family Medicine 08/30/22 Open Developer Operator Relationship Specialty Start Date End Date Giovani Hagen MD [address] [place] [address] [place] [address] PCP - [facility] 10/22/18 04/23/99 Giovani Hagen MD [address] [place] [address] [place] [address] PCP - General Family Medicine 08/30/22 Open Developer Operator Relationship Specialty Start Date End Date Giovani Hagen MD [address] [place] [address] [place] [address] PCP - General Family Medicine 03/27/19 Deena Lyn, ISABEL [address] [place] [address] [place] [id number] Referring Family Medicine 04/03/24 Open Developer Operator Relationship Specialty Start Date End Date Giovani Hagen MD [address] [address] [place] [address] PCP - General Family Medicine 03/27/19 Deena Lyn CNP [address] [place] [address] [place] [address] Referring Family Medicine 04/03/24 Open Developer Operator Relationship Specialty Start Date End Date Giovani Hagen MD [address] [place] [address] PCP - [facility] [employer] 10/22/18 04/23/99 Giovani Hagen MD [address] [address] [place] [address] PCP - General Family Medicine 08/30/22 Open Developer Operator Relationship Specialty Start Date End Date Giovani Hagen MD [address] [place] [address] PCP - [facility] [employer] 10/22/18 04/23/99 Giovani Hagen MD [address] [place] [address] PCP - General Family Medicine 08/30/22 Open Developer Operator Relationship Specialty Start Date End Date Giovani Hagen MD [address] [place] [address] PCP - [facility] [employer] 10/22/18 04/23/99 Giovani Hagen MD [address] [place] [address] PCP - General Family Medicine 08/30/22 Open Developer Operator Relationship Specialty Start Date End Date Giovani Hagen MD [address] [place] [address] PCP - [facility] [employer] 10/22/18 04/23/99 Giovani Hagen MD [address] [address] [place] [address] PCP - General Family Medicine 08/30/22 Open Developer Operator Relationship Specialty Start Date End Date Giovani Hagen MD [address] [address] [place] [address] PCP - [facility] [employer] 10/22/18 04/23/99 Giovani Hagen MD [address] [place] [address] PCP - General Family Medicine 08/30/22 Open Developer Operator Relationship Specialty Start Date End Date Giovani Hagen MD [address] [place] [address] PCP - [facility] [employer] 10/22/18 04/23/99 Giovani Hagen MD [address] [place] [address] PCP - General Family Medicine 08/30/22 Open Developer Operator Relationship Specialty Start Date End Date Giovani Hagen MD [address] [place] [address] PCP - [facility] [employer] 10/22/18 04/23/99 Giovani Hagen MD [address] [address] [place] [address] PCP - General Family Medicine 08/30/22 Open Developer Operator Relationship Specialty Start Date End Date Giovani Hagen MD [address] [place] [address] PCP - [facility] [employer] 10/22/18 04/23/99 Giovani Hagen MD [address] [place] [address] PCP - General Family Medicine 08/30/22 Open Developer Operator Relationship Specialty Start Date End Date Giovani Hagen MD [address] [place] [address] [place] [address] PCP - General Family Medicine 03/27/19 Deena Lyn, ISABEL [address] [place] [address] Referring Family Medicine 04/03/24 Darwin Starr DO [address] [place] [address] Referring Buffer Chrome 07/02/24 Open Developer Operator Relationship Specialty Start Date End Date Giovani Hagen MD [address] [place] [address] PCP - General Family Medicine 03/27/19 Deena Lyn, ISABEL [address] [place] [address] Referring Family Medicine 04/03/24 Darwin Starr DO [address] [place] [address] Referring Buffer Chrome 07/02/24 Open Developer Operator Relationship Specialty Start Date End Date Giovani Hagen MD [address] [place] [address] PCP - [facility] [employer] 10/22/18 04/23/99 Giovani Hagen MD [address] [place] [address] PCP - General Family Medicine 08/30/22 Open Developer Operator Relationship Specialty Start Date End Date Giovani Hagen MD [address] [place] [address] PCP - [facility] [employer] 10/22/18 04/23/99 Giovani Hagen MD [address] [facility] [address] [place] [address] PCP - General Family Medicine 08/30/22 Open Developer Operator Relationship Specialty Start Date End Date Giovani Hagen MD [address] [facility] [address] [place] [address] PCP - [facility] [employer] 10/22/18 04/23/99 Giovani Hagen MD [address] [place] [address] [place] [address] PCP - General Family Medicine 08/30/22 Open Developer Operator Relationship Specialty Start Date End Date Giovani Hagen MD [address] [place] [address] PCP - [facility] [employer] 10/22/18 04/23/99 Giovani Hagen MD [address] [place] [address] PCP - General Family Medicine 08/30/22 Open Developer Operator Relationship Specialty Start Date End Date Giovani Hagen MD [address] [facility] [address] [place] [address] PCP - [facility] [employer] 10/22/18 04/23/99 Giovani Hagen MD [address] [facility] [address] [place] [address] PCP - General Family Medicine 08/30/22 Team [...] Other Provider Active Start: August 17, 2024 Open Developer Operator Relationship Specialty Start Date End Date Giovani Hagen MD [address] [facility] [address] [place] [address] PCP - [facility] [employer] 10/22/18 04/23/99 Giovani Hagen MD [address] [facility] [address] [place] [address] PCP - [facility] Family Medicine 08/30/22 Open Developer Operator Relationship Specialty Start Date End Date Giovani Hagen MD [address] [facility] [address] [place] [address] PCP - [facility] [employer] 10/22/18 04/23/99 Giovani Hagen MD [address] [facility] [address] [place] [address] PCP - General Family Medicine 08/30/22 Open Developer Operator Relationship Specialty Start Date End Date Giovani Hagen MD [address] [facility] [address] [place] [address] PCP - General Family Medicine 03/27/19 Deena Lyn, ISABEL [address] [facility] [address] [place] [address] Referring Family Medicine 04/03/24 Darwin Starr DO [address] [place] [address] [place] [address] Referring Buffer Chrome 07/02/24 Open Developer Operator Relationship Specialty Start Date End Date Giovani Hagen MD [address] [facility] [address] [place] [address] PCP - [facility] [employer] 10/22/18 04/23/99 Giovani Hagen MD [address] [facility] [address] [place] [address] PCP - General Family Medicine 08/30/22 Open Developer Operator Relationship Specialty Start Date End Date Giovani Hagen MD [address] [facility] [address] [place] [address] PCP - [facility] [employer] 10/22/18 04/23/99 Giovani Hagen MD [address] [facility] [address] [place] [address] PCP - General Family Medicine 08/30/22 Open Developer Operator Relationship Specialty Start Date End Date Giovani Hagen MD [address] [facility] [address] [place] [address] PCP - [facility] [employer] 10/22/18 04/23/99 Giovani Hagen MD [address] [place] [address] [place] [address] PCP - General Family Medicine 08/30/22 Open Developer Operator Relationship Specialty Start Date End Date Giovani Hagen MD [address] [place] [address] PCP - [facility] [employer] 10/22/18 04/23/99 Giovani Hagen MD [address] [place] [address] PCP - General Family Medicine 08/30/22 Open Developer Operator Relationship Specialty Start Date End Date Giovani Hagen MD [address] [place] [address] [place] [address] PCP - General Family Medicine 03/27/19 Deena Lyn, ISABEL [address] [place] [address] Referring Family Medicine 04/03/24 Darwin Starr DO [address] [place] [address] [place] [address] Referring Buffer Chrome 07/02/24 Open Developer Operator Relationship Specialty Start Date End Date Giovani Hagen MD [address] [place] [address] [place] [address] PCP - [facility] [employer] 10/22/18 04/23/99 Giovani Hagen MD [address] [place] [address] [place] [address] PCP - General Family Medicine 08/30/22 Open Developer Operator Relationship Specialty Start Date End Date Giovani Hagen MD [address] [place] [address] [place] [address] PCP - [facility] [employer] 10/22/18 04/23/99 Giovani Hagen MD [address] [place] [address] [place] [address] PCP - General Family Medicine 08/30/22 Open Developer Operator Relationship Specialty Start Date End Date Giovani Hagen MD [address] [place] [address] [place] [address] PCP - General Family Medicine 03/27/19 Deena Lyn CNP [address] [place] [address] [place] [address] Referring Family Medicine 04/03/24 Darwin Starr DO [address] [place] [address] [place] [address] Referring Buffer Chrome 07/02/24 Open Developer Operator Relationship Specialty Start Date End Date Giovani Hagen MD [address] [place] [address] [place] [address] PCP - [facility] [employer] 10/22/18 04/23/99 Giovani Hagen MD [address] [place] [address] [place] [address] PCP - General Family Medicine 08/30/22 Open Developer Operator Relationship Specialty Start Date End Date Giovani Hagen MD [address] [place] [address] [place] [address] PCP - [facility] [employer] 10/22/18 04/23/99 Giovani Hagen MD [address] [place] [address] [place] [address] PCP - General Family Medicine 08/30/22 Open Developer Operator Relationship Specialty Start Date End Date Giovani Hagen MD [address] [facility] [address] [place] [address] PCP - [facility] [employer] 10/22/18 04/23/99 Giovani Hagen MD [address] [facility] [address] [place] [address] PCP - General Family Medicine 08/30/22 Open Developer Operator Relationship Specialty Start Date End Date Giovani Hagen MD [address] [facility] [address] [place] [address] PCP - General Family Medicine 03/27/19 Deena Lyn CNP [address] [facility] [address] [place] [address] Referring Family Medicine 04/03/24 Darwin Starr DO [address] [place] [address] [place] [address] Referring Buffer Chrome 07/02/24 Open Developer Operator Relationship Specialty Start Date End Date Giovani Hagen MD [address] [facility] [address] [place] [address] PCP - [facility] [employer] 10/22/18 04/23/99 Giovani Hagen MD [address] [facility] [address] [place] [address] PCP - General Family Medicine 08/30/22 Open Developer Operator Relationship Specialty Start Date End Date Giovani Hagen MD [address] [facility] [address] [place] [address] PCP - [facility] [employer] 10/22/18 04/23/99 Giovani Hagen MD [address] [place] [address] [place] [address] PCP - General Family Medicine 08/30/22 Open Developer Operator Relationship Specialty Start Date End Date Giovani Hagen MD [address] [place] [address] [place] [address] PCP - General Family Medicine 03/27/19 Deena Lyn, SALESPERSON HEARING AIDS [address] [place] [address] Referring Family Medicine 04/03/24 Darwin Starr DO [address] [place], [place] [address] [address] Referring Buffer Chrome 07/02/24 Open Developer Operator Relationship Specialty Start Date End Date Giovani Hagen MD [address] [place] [address] [place] [address] PCP - General Family Medicine 03/27/19 Deena Lyn, SALESPERSON HEARING AIDS [address] [place] [address] [place] [address] Referring Family Medicine 04/03/24 Darwin Starr DO [address] [place], [place] [address] [address] Referring Buffer Chrome 07/02/24 Open Developer Operator Relationship Specialty Start Date End Date Giovani Hagen MD [address] [place] [address] [place] [address] PCP - [facility] [employer] 10/22/18 04/23/99 Giovani Hagen MD [address] [place] [address] [place] [address] PCP - General Family Medicine 08/30/22 Open Developer Operator Relationship Specialty Start Date End Date Giovani Hagen MD [address] [place] [address] [place] [address] PCP - General Family Medicine 03/27/19 Deena Lyn, SALESPERSON HEARING AIDS [address] [place] [address] Referring Family Medicine 04/03/24 Darwin Starr, DO [address] [place] [address] Referring Buffer Chrome 07/02/24 Open Developer Operator Relationship Specialty Start Date End Date Giovani Hagen MD [address] [place] [address] [place] [address] PCP - General Family Medicine 03/27/19 Deena Lyn, SALESPERSON HEARING AIDS [address] [place] [address] [place] [address] Referring Family Medicine 04/03/24 Darwin Starr, DO [address] [place] [address] Referring Buffer Chrome 07/02/24 Open Developer Operator Relationship Specialty Start Date End Date Giovani Hagen MD [address] [place] [address] [place] [address] PCP - [facility] [employer] 10/22/18 04/23/99 Giovani Hagen MD [address] [place] [address] [place] [address] PCP - General Family Medicine 08/30/22 Open Developer Operator Relationship Specialty Start Date End Date Giovani Hagen MD [address] [place] [address] [place] [address] PCP - [facility] [employer] 10/22/18 04/23/99 Giovani Hagen MD [address] [place] [address] [place] [address] PCP - General Family Medicine 08/30/22 Open Developer Operator Relationship Specialty Start Date End Date Giovani Hagen MD [address] [place] [address] PCP - [facility] [employer] 10/22/18 04/23/99 Giovani Hagen MD [address] [place] [address] PCP - General Family Medicine 08/30/22 Open Developer Operator Relationship Specialty Start Date End Date Giovani Hagen MD [address] [place] [address] [place] [address] PCP - [facility] [employer] 10/22/18 04/23/99 Giovani Hagen MD [address] [place] [address] [place] [address] PCP - General Family Medicine 08/30/22 Open Developer Operator Relationship Specialty Start Date End Date Giovani Hagen MD [address] [place] [address] [place] [address] PCP - [facility] [employer] 10/22/18 04/23/99 Giovani Hagen MD [address] [place] [address] [place] [address] PCP - General Family Medicine 08/30/22 Open Developer Operator Relationship Specialty Start Date End Date Giovani Hagen MD [address] [place] [address] PCP - [facility] [employer] 10/22/18 04/23/99 Giovani Hagen MD [address] [place] [address] [place] [address] PCP - General Family Medicine 08/30/22 Open Developer Operator Relationship Specialty Start Date End Date Giovani Hagen MD [address] [place] [address] [place] [address] PCP - [facility] [employer] 10/22/18 04/23/99 Giovani Hagen MD [address] [place] [address] [place] [address] PCP - General Family Medicine 08/30/22 Open Developer Operator Relationship Specialty Start Date End Date Giovani Hagen MD [address] [place] [address] PCP - [facility] [employer] 10/22/18 04/23/99 Givoani Hagen MD [address] [place] [address] [place] [address] PCP - General Family Medicine 08/30/22 Open Developer Operator Relationship Specialty Start Date End Date Giovani Hagen MD [address] [place] [address] PCP - [facility] [employer] 10/22/18 04/23/99 Giovani Hagen MD [address] [place] [address] PCP - General Family Medicine 08/30/22 Open Developer Operator Relationship Specialty Start Date End Date Giovani Hagen MD [address] [place] [address] PCP - [facility] [employer] 10/22/18 04/23/99 Giovani Hagen MD [address] [address] [place] [address] PCP - General Family Medicine 08/30/22 Open Developer Operator Relationship Specialty Start Date End Date Giovani Hagen MD [address] [place] [address] [place] [address] PCP - General Family Medicine 03/27/19 Deena Lyn, MANAGING EDITOR [address] [place] [address] [place] [address] Referring Family Medicine 04/03/24 Darwin Starr DO [address] [place] [address] [place] [address] Referring Buffer Chrome 07/02/24 Open Developer Operator Relationship Specialty Start Date End Date Giovani Hagen MD [address] [place] [address] PCP - [facility] [employer] 10/22/18 04/23/99 Giovani Hagen MD [address] [place] [address] [place] [address] PCP - General Family Medicine 08/30/22 Open Developer Operator Relationship Specialty Start Date End Date Giovani Hagen MD [address] [facility] [address] [place] [address] PCP - General Family Medicine 03/27/19 Deena Lyn APRN [address] [facility] [address] [place] [address] Referring Family Medicine 04/03/24 Darwin Starr DO [address] [place] [address] [place] [address] Referring Buffer Chrome 07/02/24 Source Comments (unrecognize d section and content) In the event this informatio n is protected by the Federal Confidentiality of Alcohol and Drug Abuse Patient Records regulations: The Federal rules restrict any use of the information to criminally investigate or prosecute any alcohol or drug abuse patient.[facility] HospitalIn the event this information is protected by the Federal Confidentiality of Alcohol and Drug Abuse Patient Records regulations: The Federal rules restrict any use of the information to criminally investigate or prosecute any alcohol or drug abuse patient.[facility] HospitalIn the event this information is protected by the Federal Confidentiality of Alcohol and Drug Abuse Patient Records regulations: The Federal rules restrict any use of the information to criminally investigate or prosecute any alcohol or drug abuse patient.[facility] HospitalIn the event this information is protected by the Federal Confidentiality of Alcohol and Drug Abuse Patient Records regulations: The Federal rules restrict any use of the information to criminally investigate or prosecute any alcohol or drug abuse patient.[facility] HospitalIn the event this information is protected by the Federal Confidentiality of Alcohol and Drug Abuse Patient Records regulations: The Federal rules restrict any use of the information to criminally investigate or prosecute any alcohol or drug abuse patient.[facility] HospitalIn the event this information is protected by the Federal Confidentiality of Alcohol and Drug Abuse Patient Records regulations: The Federal rules restrict any use of the information to criminally investigate or prosecute any alcohol or drug abuse patient.[facility] HospitalIn the event this information is protected by the Federal Confidentiality of Alcohol and Drug Abuse Patient Records regulations: The Federal rules restrict any use of the information to criminally investigate or prosecute any alcohol or drug abuse patient.[facility] HospitalIn the event this information is protected by the Federal Confidentiality of Alcohol and Drug Abuse Patient Records regulations: The Federal rules restrict any use of the information to criminally investigate or prosecute any alcohol or drug abuse patient.[facility] HospitalIn the event this information is protected by the Federal Confidentiality of Alcohol and Drug Abuse Patient Records regulations: The Federal rules restrict any use of the information to criminally investigate or prosecute any alcohol or drug abuse patient.[facility] HospitalIn the event this information is protected by the Federal Confidentiality of Alcohol and Drug Abuse Patient Records regulations: The Federal rules restrict any use of the information to criminally investigate or prosecute any alcohol or drug abuse patient.[facility] HospitalIn the event this information is protected by the Federal Confidentiality of Alcohol and Drug Abuse Patient Records regulations: The Federal rules restrict any use of the information to criminally investigate or prosecute any alcohol or drug abuse patient.[facility] HospitalIn the event this information is protected by the Federal Confidentiality of Alcohol and Drug Abuse Patient Records regulations: The Federal rules restrict any use of the information to criminally investigate or prosecute any alcohol or drug abuse patient.[facility] HospitalIn the event this information is protected by the Federal Confidentiality of Alcohol and Drug Abuse Patient Records regulations: The Federal rules restrict any use of the information to criminally investigate or prosecute any alcohol or drug abuse patient.[facility] HospitalIn the event this information is protected by the Federal Confidentiality of Alcohol and Drug Abuse Patient Records regulations: The Federal rules restrict any use of the information to criminally investigate or prosecute any alcohol or drug abuse patient.[facility] HospitalIn the event this information is protected by the Federal Confidentiality of Alcohol and Drug Abuse Patient Records regulations: The Federal rules restrict any use of the information to criminally investigate or prosecute any alcohol or drug abuse patient.[facility] HospitalIn the event this information is protected by the Federal Confidentiality of Alcohol and Drug Abuse Patient Records regulations: The Federal rules restrict any use of the information to criminally investigate or prosecute any alcohol or drug abuse patient.[facility] HospitalIn the event this information is protected by the Federal Confidentiality of Alcohol and Drug Abuse Patient Records regulations: The Federal rules restrict any use of the information to criminally investigate or prosecute any alcohol or drug abuse patient.[facility] HospitalIn the event this information is protected by the Federal Confidentiality of Alcohol and Drug Abuse Patient Records regulations: The Federal rules restrict any use of the information to criminally investigate or prosecute any alcohol or drug abuse patient.[facility] HospitalIn the event this information is protected by the Federal Confidentiality of Alcohol and Drug Abuse Patient Records regulations: The Federal rules restrict any use of the information to criminally investigate or prosecute any alcohol or drug abuse patient.[facility] HospitalIn the event this information is protected by the Federal Confidentiality of Alcohol and Drug Abuse Patient Records regulations: The Federal rules restrict any use of the information to criminally investigate or prosecute any alcohol or drug abuse patient.[facility] HospitalIn the event this information is protected by the Federal Confidentiality of Alcohol and Drug Abuse Patient Records regulations: The Federal rules restrict any use of the information to criminally investigate or prosecute any alcohol or drug abuse patient.[facility] HospitalIn the event this information is protected by the Federal Confidentiality of Alcohol and Drug Abuse Patient Records regulations: The Federal rules restrict any use of the information to criminally investigate or prosecute any alcohol or drug abuse patient.[facility] HospitalIn the event this information is protected by the Federal Confidentiality of Alcohol and Drug Abuse Patient Records regulations: The Federal rules restrict any use of the information to criminally investigate or prosecute any alcohol or drug abuse patient.[facility] HospitalIn the event this information is protected by the Federal Confidentiality of Alcohol and Drug Abuse Patient Records regulations: The Federal rules restrict any use of the information to criminally investigate or prosecute any alcohol or drug abuse patient.[facility] HospitalIn the event this information is protected by the Federal Confidentiality of Alcohol and Drug Abuse Patient Records regulations: The Federal rules restrict any use of the information to criminally investigate or prosecute any alcohol or drug abuse patient.[facility] HospitalIn the event this information is protected by the Federal Confidentiality of Alcohol and Drug Abuse Patient Records regulations: The Federal rules restrict any use of the information to criminally investigate or prosecute any alcohol or drug abuse patient.[facility] HospitalIn the event this information is protected by the Federal Confidentiality of Alcohol and Drug Abuse Patient Records regulations: The Federal rules restrict any use of the information to criminally investigate or prosecute any alcohol or drug abuse patient.[facility] HospitalIn the event this information is protected by the Federal Confidentiality of Alcohol and Drug Abuse Patient Records regulations: The Federal rules restrict any use of the information to criminally investigate or prosecute any alcohol or drug abuse patient.[facility] HospitalIn the event this information is protected by the Federal Confidentiality of Alcohol and Drug Abuse Patient Records regulations: The Federal rules restrict any use of the information to criminally investigate or prosecute any alcohol or drug abuse patient.[facility] HospitalIn the event this information is protected by the Federal Confidentiality of Alcohol and Drug Abuse Patient Records regulations: The Federal rules restrict any use of the information to criminally investigate or prosecute any alcohol or drug abuse patient.[facility] HospitalIn the event this information is protected by the Federal Confidentiality of Alcohol and Drug Abuse Patient Records regulations: The Federal rules restrict any use of the information to criminally investigate or prosecute any alcohol or drug abuse patient.[facility] HospitalIn the event this information is protected by the Federal Confidentiality of Alcohol and Drug Abuse Patient Records regulations: The Federal rules restrict any use of the information to criminally investigate or prosecute any alcohol or drug abuse patient.[facility] HospitalIn the event this information is protected by the Federal Confidentiality of Alcohol and Drug Abuse Patient Records regulations: The Federal rules restrict any use of the information to criminally investigate or prosecute any alcohol or drug abuse patient.[facility] HospitalIn the event this information is protected by the Federal Confidentiality of Alcohol and Drug Abuse Patient Records regulations: The Federal rules restrict any use of the information to criminally investigate or prosecute any alcohol or drug abuse patient.[facility] HospitalIn the event this information is protected by the Federal Confidentiality of Alcohol and Drug Abuse Patient Records regulations: The Federal rules restrict any use of the information to criminally investigate or prosecute any alcohol or drug abuse patient.[facility] HospitalIn the event this information is protected by the Federal Confidentiality of Alcohol and Drug Abuse Patient Records regulations: The Federal rules restrict any use of the information to criminally investigate or prosecute any alcohol or drug abuse patient.[facility] HospitalIn the event this information is protected by the Federal Confidentiality of Alcohol and Drug Abuse Patient Records regulations: The Federal rules restrict any use of the information to criminally investigate or prosecute any alcohol or drug abuse patient.[facility] HospitalIn the event this information is protected by the Federal Confidentiality of Alcohol and Drug Abuse Patient Records regulations: The Federal rules restrict any use of the information to criminally investigate or prosecute any alcohol or drug abuse patient.[facility] HospitalIn the event this information is protected by the Federal Confidentiality of Alcohol and Drug Abuse Patient Records regulations: The Federal rules restrict any use of the information to criminally investigate or prosecute any alcohol or drug abuse patient.[facility] HospitalIn the event this information is protected by the Federal Confidentiality of Alcohol and Drug Abuse Patient Records regulations: The Federal rules restrict any use of the information to criminally investigate or prosecute any alcohol or drug abuse patient.[facility] HospitalIn the event this information is protected by the Federal Confidentiality of Alcohol and Drug Abuse Patient Records regulations: The Federal rules restrict any use of the information to criminally investigate or prosecute any alcohol or drug abuse patient.[facility] HospitalIn the event this information is protected by the Federal Confidentiality of Alcohol and Drug Abuse Patient Records regulations: The Federal rules restrict any use of the information to criminally investigate or prosecute any alcohol or drug abuse patient.[facility] HospitalIn the event this information is protected by the Federal Confidentiality of Alcohol and Drug Abuse Patient Records regulations: The Federal rules restrict any use of the information to criminally investigate or prosecute any alcohol or drug abuse patient.[facility] HospitalIn the event this information is protected by the Federal Confidentiality of Alcohol and Drug Abuse Patient Records regulations: The Federal rules restrict any use of the information to criminally investigate or prosecute any alcohol or drug abuse patient.[facility] HospitalIn the event this information is protected by the Federal Confidentiality of Alcohol and Drug Abuse Patient Records regulations: The Federal rules restrict any use of the information to criminally investigate or prosecute any alcohol or drug abuse patient.[facility] HospitalIn the event this information is protected by the Federal Confidentiality of Alcohol and Drug Abuse Patient Records regulations: The Federal rules restrict any use of the information to criminally investigate or prosecute any alcohol or drug abuse patient.[facility] HospitalIn the event this information is protected by the Federal Confidentiality of Alcohol and Drug Abuse Patient Records regulations: The Federal rules restrict any use of the information to criminally investigate or prosecute any alcohol or drug abuse patient.[facility] HospitalIn the event this information is protected by the Federal Confidentiality of Alcohol and Drug Abuse Patient Records regulations: The Federal rules restrict any use of the information to criminally investigate or prosecute any alcohol or drug abuse patient.[facility] HospitalIn the event this information is protected by the Federal Confidentiality of Alcohol and Drug Abuse Patient Records regulations: The Federal rules restrict any use of the information to criminally investigate or prosecute any alcohol or drug abuse patient.[facility] HospitalIn the event this information is protected by the Federal Confidentiality of Alcohol and Drug Abuse Patient Records regulations: The Federal rules restrict any use of the information to criminally investigate or prosecute any alcohol or drug abuse patient.[facility] HospitalIn the event this information is protected by the Federal Confidentiality of Alcohol and Drug Abuse Patient Records regulations: The Federal rules restrict any use of the information to criminally investigate or prosecute any alcohol or drug abuse patient.[facility] HospitalIn the event this information is protected by the Federal Confidentiality of Alcohol and Drug Abuse Patient Records regulations: The Federal rules restrict any use of the information to criminally investigate or prosecute any alcohol or drug abuse patient.[facility] HospitalIn the event this information is protected by the Federal Confidentiality of Alcohol and Drug Abuse Patient Records regulations: The Federal rules restrict any use of the information to criminally investigate or prosecute any alcohol or drug abuse patient.[facility] HospitalIn the event this information is protected by the Federal Confidentiality of Alcohol and Drug Abuse Patient Records regulations: The Federal rules restrict any use of the information to criminally investigate or prosecute any alcohol or drug abuse patient.[facility] HospitalIn the event this information is protected by the Federal Confidentiality of Alcohol and Drug Abuse Patient Records regulations: The Federal rules restrict any use of the information to criminally investigate or prosecute any alcohol or drug abuse patient.[facility] HospitalIn the event this information is protected by the Federal Confidentiality of Alcohol and Drug Abuse Patient Records regulations: The Federal rules restrict any use of the information to criminally investigate or prosecute any alcohol or drug abuse patient.[facility] HospitalIn the event this information is protected by the Federal Confidentiality of Alcohol and Drug Abuse Patient Records regulations: The Federal rules restrict any use of the information to criminally investigate or prosecute any alcohol or drug abuse patient.[facility] HospitalIn the event this information is protected by the Federal Confidentiality of Alcohol and Drug Abuse Patient Records regulations: The Federal rules restrict any use of the information to criminally investigate or prosecute any alcohol or drug abuse patient.[facility] HospitalIn the event this information is protected by the Federal Confidentiality of Alcohol and Drug Abuse Patient Records regulations: The Federal rules restrict any use of the information to criminally investigate or prosecute any alcohol or drug abuse patient.[facility] HospitalIn the event this information is protected by the Federal Confidentiality of Alcohol and Drug Abuse Patient Records regulations: The Federal rules restrict any use of the information to criminally investigate or prosecute any alcohol or drug abuse patient.[facility] Reason for Visit (unrecogniz ed section [...] & [place] [address] [place] [address] [place] [address] Referral ID Status Reason Start Date Expiration Date V isits Requested Visits Authorized [id number] Closed Auto-Generate d Referral 05/27/2022 06/26/2023 1 [...] Received Outside Medical Records The [facility]st[facility] Reason Comments Received Outside Medical Records Cardio Clearance [facility] Reason Comments Back Pain Reason Comments Dyspareunia [...] ligament of right ankle, subsequent encounter Procedures PA OFFICE/OUTPATIENT NEW HIGH MDM Giovani Hagen MD [address] [facility] [address] [place] [address] Phone: tel: fax: Prateek Pedraza DPM [address] [facility] [address] [place] [address] Phone: tel: fax: Referral ID Status Reason Start Date Expiration Date V isits Requested Visits Authorized [id number] Closed Specialty Services Required 04/22/2024 10/19/2024 1 [...] WK 2 post op Reason Comments Painful [place] bleeding with intercourse Reason Comments Post-op 3 [...] EXERCISES RE, EA 15 MIN. Mario Harper, MANAGING EDITOR.SALESPERSON [facility] [address] [place] [address] Phone: tel: fax: [facility] [address] [place] [address] Referral ID Status Reason Start Date Expiration Date Visits Requested Visits Authorized [id number] Authorized Auto-Generat ed Referral 10/23/2023 10/21/2024 25 25 Reason Comments Radio Gen RMP Specialty Diagnoses / Procedures Referred By Contac t Referred To Contact XR IMAGING Diagnoses Pelvic floor dysfunction Chronic constipation Procedures XR ABDOMEN 1V SUPINE RADIOLOGIC EXAM ABDOMEN 1 VIEW Meredith Mario, MANAGING EDITOR.[employer]ESPERSON [employer] [address] [place] [address] Phone: tel: fax: XR IMAGING [id number] Referral ID Status Reason Start Date Expiration Date Visits Requested Visits Authorized [id number] Authorized Auto-Generat ed Referral 10/09/2024 11/08/2025 3 [...] dyspareunia Pelvic pain in female Procedures OFFICE/OUTPATIENT [facility] 60 MINUTES Javy Boudreaux MD [address] [address] Phone: tel: fax: Referral ID Status Reason Start Date Expiration Date V isits Requested Visits Authorized [id number] Closed PCP Requested Referral Auto-Generated Referral 07/10/2024 [...] BE BASED ON THE PRIMARY CLINICAL RECORDS. [employer] provides no warranty or guarantee of the accuracy or completeness of information in this document.
[2025-01-09 12:33] LABS: Hematocrit 39.2 % (36.0-48.0); Hemoglobin 13.3 g/dL (12.0-16.0); Immature Granulocytes Abs Auto 0.27 10^3/uL (0.00-0.03); Immature Granulocytes Pct Auto 2.6 % (0.0-0.5); Lymphocytes Absolute Auto 2.5 10^3/uL (1.2-3.8); Mean Corpuscular HGB Conc 33.9 g/dL (29.9-35.2); Mean Corpuscular Hemoglobin 32.4 pg (26.7-34.0); Mean Corpuscular Volume 95.4 fL (81.0-99.0); Platelet Count 244 10^3/uL (150-450); Red Blood Count 4.11 10^6/uL (4.20-5.40); White Blood Count 10.3 10^3/uL (4.0-11.0)
[2025-01-09 13:08] LABS: Cholesterol 238 mg/dL (<=200); HDL Cholesterol 75 mg/dL (40-60); Triglycerides 213 mg/dL (<=150); VLDL CHOLESTEROL 42.6 mg/dL
== END 2025-01-09 12:13 | disposition home or self-care (01) ==
PROVIDERS: PCP Family Medicine; Visit Provider Family Medicine
DX: Z00.00 Encounter for general adult medical examination without abnormal findings (principal); R74.8 Abnormal levels of other serum enzymes; Z13.220 Encounter for screening for lipoid disorders; E11.9 Type 2 diabetes mellitus without complications
CPT/HCPCS: 36415; 80061; 80074; 85025

== ENCOUNTER 2025-02-06 10:21 | Outpatient (OUT) | payer OTHER, SELFPAY ==
--- OUTSIDE RECORDS SUMMARY | 2025-02-06 10:35 | XMS_ITS | CCD ---
Author Organization [facility] Care Team Providers Care Program Evaluation Consultant Name Role Phone OZIEL MONTEIRO Referring Unavailable GIOVANI HAGEN Primary Care Unavailable MD Erwin Hylton Attending Provider [phone] MD Giovani Hagen Primary Care Provider [phone] Giovani Hagen Primary Care Provider Erwin Hylton [...] Consulting Unavailable MD Concetta Immatt Attending Provider [phone] MD Giovani Hagen Primary Care Provider Giovani Hagen MD Primary Care Provider [phone] BLOODMARY Admitting Unavailable BLOOD, MARY Culver Attending Unavailable JACKSON MONTENEGRO Consulting Unavailable SONIYA PATEL Referring Unavailable [facility]IEU, [facility] Primary Care Unavailable MAKENNA AMAYA Consulting Unavailable Giovani Hagen MD Primary Care Provider Giovani Hagen MD Unavailable Giovani Hagen MD Primary Care Provider Deena Lyn CNP Unavailable SOLO MORA Referring Unavailable [facility] Unavailable Darwin Starr DO R Unavailable Giovani Hagen MD Primary Care Provider [phone] Dank Green MD Admit Provider Dank Green MD Attending Provider [phone] Dank Green Admitting Unavailab Rahul Ugarte Attending Unavailable [place], Kiranen Primary Care Unavailable MARIO HARPER Referring Unavailable [facility] Primary Care Unavailable [facility] Primary Care Unavailable ILIANA MERCADO Referring Unavailable [place] , [facility] Primary Care Provider [phone] Deena Lyn APRN Unavailable Iliana Cramer Attending Unavailable Madhuri MISHRA Attending Unavailable Iliana Cramer Attending Unavailable [facility] Primary Care Unavailable PONCHO MORAL Referring Unavailable [facility] Primary Care Unavailable MARIO HARPER Attending Unavailable ANTIONETTEHIDONG McnamaraA Referring Unavailable MARIO HARPER Referring Unavailable LYDIA ROCK Attending Unavailable [facility] Primary Care Unavailable HIEU, RUGEN MABALAY Primary Care Unavailable DARWIN STARR Referring Unavailable JAVY BOUDREAUX Attending Unavailable [facility] Primary Care Unavailable ILIANA MERCADO Referring Unavailable HIEU, RUGEN MABALAY Primary Care Unavailable EMMA YING Attending Unavailable JAVY BOUDREAUX Referring Unavailable HIEU, RUGEN MABALAY Primary Care Unavailable ILIANA MERCADO Attending Unavailable HIEU, RUGEN MABALAY Primary Care Unavailable ILIANA MERCADO Referring Unavailable HIEU, RUGEN MABALAY Primary Care Unavailable OBED BHATT Attending Unavailable ILIANA MERCADO Referring Unavailable HIEU, RUGEN MABALAY Primary Care Unavailable ILIANA MERCADO Referring Unavailable HIEU, RUGEN MABALAY Primary Care Unavailable MARIO HARPER Referring Unavailable HIEU, RUGEN MABALAY Primary Care Unavailable BASVIRGENRLILYI S Referring Unavailable HIEU, RUGEN MABALAY Primary Care Unavailable CARLOZ, ARSHNEEL Referring Unavailable HIEU, RUGEN MABALAY Primary Care Unavailable MARIO HARPER Attending Unavailable HIEU, RUGEN MABALAY Primary Care Unavailable LYDIA KELLEY Attending Unavailab le HIEU, RUGEN MABALAY Primary Care Unavailable KOCHAR, ARSHNEEL Referring Unavailable [facility] Unavailable KOCHAR, ARSHNEEL Referring Unavailable KOCHAR, ARSHNLAURIEL Attending Unavailable HIEU, RUGEN M Primary Care Unavailable HIEU, RUGEN M Primary Care Unavailable DOLBRAN, MILTON Roth Attending Unavailable DOLMILTON SOTOMAYOR Referring Unavailable AYLEEN KRISHNAMURTHY Attending Unavailable HIEU, RUGEN M Attending Unavailable PRATEEK PEDRAZA Attending Unavailable DARWIN STARR Attending Unavailable DOLCE, MILTON Roth Attending Unavailable DOLCE, MILTON Roth Attending Unavailable DOLMILTON SOTOMAYOR Referring Unavailable HIEU, GIOVANI Bob Attending Unavailable DOLCE, MILTON Roth Attending Unavailable HIEU, GIOVANI Bob Attending Unavailable DOLCE, MILTON Roth Attending Unavailable DOLCE, MILTON Roth Attending Unavailable HIEU, GIOVANI Bob Attending Unavailable DOLBRAN, MILTON Roth Attending Unavailable HIEU, GIOVANI Bob Attending Unavailable HEMMERSANDY Attending Unavailable RIKIDEENA Attending Unavailable RIKIDEENA Attending Unavailable SHANNON DARDEN Attending Unavailab le HEMSANDY ROBERTO Attending Unavailable DOLMILTON SOTOMAYOR Attending Unavailable DOLMILTON SOTOMAYOR Referring Unavailable HIEU, RUGARELY M Attending Unavailable JATIN CABRERA Attending Unavailable DOLCE, MILTON Roth Attending Unavailable HIEU, RUGEN M Attending Unavailable ZHEN BURGESS Attending Unavailable HIEU, RUGEN M Referring Unavailable HIEU, RUGEN M Attending Unavailable ARUN HERNADEZ Attending Unavailable HIEU, RUGEN M Referring Unavailable BLACKSZHEN GARCIA Attending Unavailable HIEU, RUGEN M Referring Unavailable BRARUN PLATA Attending Unavailable HIEU, RUGEN M Referring Unavailable JUANJOSEYANITRA Attending Unavailable HIEU, RUGEN M Referring Unavailable KELBLEYANITRA Attending Unavailable HIEU, RUGEN M Referring Unavailable BRINKARUN Attending Unavailable HIUE, RUGEN M Referring Unavailable BRARUN PLATA Attending [...] Attending Unavailable HIEU, RUGEN M Referring Unavailable GIOVANI HAGEN Attending Unavailable JATIN CABRERA Referring Unavailable SANDY ARMENTA Attending Unavailable MILTON FRAIRE Attending Unavailable Allergies Allergy Classification Reported Allergen(s) Allergy Type Date of Onset Reaction(s) Facility Iodine (and Iodine containting drugs) (2 sources) Iodine Drug Allergy 04-11-20 19 Swelling, Itching [facility] Iohexol (2 sources) Iohexol Drug Allergy 04-12-20 19 Itching [facility] (20 sources) Iodine; Translations: [IODINE] Drug Allergy 04-11-20 19 Swelling, Itching [facility] (20 sources) Iohexol; Translations: [IOHEXOL] Drug Allergy 04-12-20 19 Itching [facility] (1 source) Cat Propensity to adverse reactions anaphylaxis [facility] Other (16 sources) tree nut, unspecified; Translations: [TREE NUTS] Propensity to adverse reactions 07-11-19 anaphylaxis [facility] Other (1 source) peanut allergenic extract Drug Allergy [facility] Repository (1 source) Cat/Feline Product Derivatives Drug allergy (disorder) 01-08-20 13 [facility] Repository (20 sources) Cat Hair Extract Allergy to substance 12-01-19 Anaphylaxis [facility] (20 sources) Iodinated Contrast Media; Translations: [IODINATED CONTRAST MEDIA] Drug Allergy 04-12-20 19 Hives, Anaphylaxis, Itching [facility] (20 sources) Prednisone & Diphenhydramine Drug Allergy 10-03-19 24 [facility] (16 sources) Cat Dander; Translations: [cat dander] Drug Allergy 05-03-19 23 Anaphylaxis [facility] (1 source) tree nut, unspecified Drug allergy (disorder) 05-03-19 [facility] Repository (1 source) No Known Medication Allergies; Translations: [No Known Medication Allergies] Propensity to adverse reactions (disorder) [facility] Repository Medications Current Medications Medication [...] every four hours as needed HYDROcodone-acetami nophen (Frederic) 5-325 MG tablet Take 1 tablet by mouth every 4 (four) hours if needed 09/06/2024 09/17/2024 Discontinued (Therapy completed) Start: 05-09-2024 End: 05-14-2024 take 1 tablet by mouth every six hours for pain HYDROcodone-acetaminophen (Frederic) 5-325 MG tablet Indications: Cervical radiculopathy due to degenerative joint disease of spine Take 1 tablet by mouth every 6 (six) hours if needed for severe pain for up to 5 days 20 tablet 05/09/2024 05/14/2024 Active Start: 04-16-2024 End: 04-21-2024 take 1 tablet by mouth every six hours for pain HYDROcodone-acetaminophen (Frederic) 5-325 MG tablet Indications: Sprain of anterior talofibular ligament of right ankle, subsequent encounter Take 1 tablet by mouth every 6 (six) hours if needed for severe pain for up to 5 days 20 tablet 04/16/2024 04/21/2024 [id number] 200 actuat albuterol 0.09 mg/actuat metered dose [...] Central Nervous System Stimulant Start: 12-16-2024 End: 02-21-2025 take 1 capsule by mouth every twenty-four [...] Take with the 30mg tablet. 30 capsule 01/22/2025 02/21/2025 Active Start: 12-16-2024 End: 02-21-2025 take 1 capsule by mouth once daily amphetamine-dextroamphetamine XR (Addera ll XR) 30 MG 24 hr capsule Indications: Attention deficit hyperactivity disorder (ADHD), predominantly inattentive type Take 1 capsule (30 mg) by mouth Daily Do not crush or chew. Take with the 10mg daily 30 capsule 01/22/2025 02/21/2025 Active Start: 08-16-2024 take 1 capsule by mo uth once daily in the morning Dextroamphetamine-Amphetamine 10 [...] capsules by mouth at bedtime Bis Subcit Vhk-Arjdr-Ophjdvlx (PYLERA) 140-125-125 mg per capsule Take 3 [...] oral tablet (5 sources) Cephalosporin Antibacterial Start: 04-18-20 End: 04-28-19 take 1 tablet by mouth in the morning cefuroxime (Ceftin) 500 MG tablet Indications: Acute bronchitis with asthma (CMS/HCC) Take 1 tablet (500 mg) by mouth in the morning and 1 tablet (500 mg) before bedtime. Do all this for 10 days. 20 tablet 04/18/2024 04/28/2024 Active celecoxib 100 mg oral capsule (4 sources) Nonsteroidal Anti-inflammatory Drug Start: 01-14-20 End: 01-14-20 take 1 capsule by mouth in the morning celecoxib (CeleBREX) 100 MG capsule Indications: Lumbar radiculopathy Take 1 capsule (100 mg) by mouth in the morning and 1 capsule (100 mg) before bedtime. 180 capsule 3 01/13/2025 01/13/2026 Active cephalexin 500 mg oral capsule (20 sources) Cephalosporin Antibacterial Start: 09-07-19 End: 12-13-19 take 1 capsule by mouth in the [...] UTI, # 20 cap(s), Refills(s) 2, Pharmacy: [facility]/pharmacy #[id number], 158, cm, 12/28/23 15:24:00 [...] days., # 50 cap(s), Refills(s) 0, Pharmacy: [facility]/pharmacy #[id number], 158, cm, 06/29/22 8:19:00 [...] Start: 11-27-2024 take 1 tablet by vanna th three times daily cyclobenzaprine (FLEXERIL) 5 mg tablet take 1 tablet by mouth three times a day for 14 days 11/27/2024 Active dapagliflozin 10 mg oral tablet (18 sources) Sodium-Glucose Cotransporter 2 Inhibitor Start: 12-16-2024 [...] oral capsule (20 sources) Tricyclic Antidepressant Start: 01-20-2025 take 2 capsules by mouth at bedtime doxepin (SINEquan) 100 MG capsule Indications: Major depressive disorder, recurrent, moderate (HCC) Take 2 capsules (200 mg) by mouth at bedtime 60 capsule 5 01/20/2025 Active Start: 12-16-2024 End: 01-20-2025 take 2 capsules by mouth at bedtime doxepin (SINEquan) 100 MG capsule Indications: Major depressive disorder, recurrent, moderate (HCC) Take 2 capsules (200 mg) by mouth at bedtime 60 capsule 12/16/2024 01/20/2025 Discontinued Start: 12-16-2024 End: 12-16-2024 take 1 capsule [...] take 1 puff(s) by inhalation once daily Ettuuzqelsp-Lotaoizbx-Dmgjfz (Trelegy Ellipta) 100-62.5-25 MCG/ACT aerosol powder Indications: Moderate persistent asthmatic bronchitis with acute exacerbation (HCC) INHALE 1 PUFF DAILY 60 each 2 09/03/2024 Active Start: 04-16-2024 End: 06-25-2024 take 1 puff(s) by inhalation once daily Dtwfgyolgxz-Pqkhtxdlo-Xiefff 100-62.5-25 MCG/ACT aerosol powder Indications: Moderate persistent asthmatic bronchitis with acute exacerbation ([facility]/HCC) Inhale 1 puff Daily 1 each 04/16/2024 06/25/2024 Discontinued Start: 05-24-2022 take 1 puff(s) by inhalation once daily Xuofhcrvpom-Wrlmzpvsy-Kwhjfp 100-62.5-25 MCG/ACT aerosol powder INHALE 1 PUFF [...] Indications: Anxiety , PTSD (post-traumatic stress disorder) ([facility]) Take 1 capsule (25 mg) by [...] (20 sources) Anti-epileptic Agent Start: 10-10-2024 End: 11-16-2024 take 0.5 tablet by mouth at bedtime, then take 1 tablet by mouth at bedtime OXcarbazepine (Trileptal) 300 MG tablet Indications: Numbness and tingling , Atypical migraine Take 0.5 tablets (150 mg) by mouth at bedtime for 7 days, THEN 1 tablet (300 mg) at bedtime. 34 tablet 11 10/10/2024 Active Start: 10-10-2024 End: 12-26-2025 take 1 tablet by mouth in the morning OXcarbazepine (Trileptal) 300 MG tablet Indications: Lumbar radiculopathy , Atypical migraine Take 1 tablet (300 mg) by mouth in the morning and 1 tablet (300 mg) before bedtime. 60 tablet 2 12/26/2024 12/26/2025 Active phentermine hydrochloride 37.5 mg oral tablet [...] sources) alpha-Adrenergic Taylor Start: 12-16-2024 End: 12-16-2024 take 1 capsule by mouth in the morning, then take 1 capsule by mouth in the evening, then take 1 capsule by mouth at bedtime prazosin (Minipress) 2 MG capsule Indications: PTSD (post-traumatic stress disorder) Take 1 capsule (2 mg) by mouth in the morning and 1 capsule (2 mg) in the evening and 1 capsule (2 mg) before bedtime. 100 capsule 2 12/16/2024 Active predniSONE 10 mg oral tablet (20 sources) Start: 01-14-2025 End: 01-30-2025 take 4 tablets by mouth once daily, then take 3 tablets by mouth once daily, then take 2 tablets by mouth once daily, then take 1 tablet by mouth once daily predniSONE (Deltasone) 10 MG tablet Indications: Moderate persistent asthma with acute exacerbation (HCC) Take 4 tablets (40 mg) by mouth Daily for 4 days, THEN 3 tablets (30 mg) Daily for 4 days, THEN 2 tablets (20 mg) Daily for 4 days, THEN 1 tablet (10 mg) Daily for 4 days. 40 tablet 01/14/2025 01/30/2025 Active Start: 12-13-2024 End: 12-23-2024 take 1 tablet [...] sources) beta-Adrenergic Taylor Start: 09-30-2024 propra nolol (Inderal) 10 MG tablet every 12 (twelve) hours 09/30/2024 Active Start: 09-30-2024 propranolol (I NDERAL) 10 mg tablet every 12 hours. 09/30/2024 Active 24 hr QUEtiapine 50 mg [...] as directed. 2 capsule 10/09/2024 10/09/2024 Active Semaglutide-Weig ht Management (Wegovy) 0.25 MG/0.5ML solution auto-injector (13 sources) Start: 01-08-2025 inject 0.25 mg by subcutaneous injection every week Semaglutide-Weigh t Management (Wegovy) 0.25 MG/0.5ML solution auto-injector Indications: Obesity (BMI 35.0-39.9 without comorbidity) Inject 0.25 mg under the skin 1 (one) time per week 2 mL 01/08/2025 Active Start: 01-07-2025 inject 0.25 mg by sorensen bcutaneous injection every week Semaglutide-Weight Management (Wegovy) 0.25 MG/0.5ML solution auto-injector Indications: Obesity (BMI 35.0-39.9 without comorbidity) Inject 0.25 mg under the skin 1 (one) time per week 2 mL 01/07/2025 Active Start: 10-05-2023 End: 12-26-2023 inject 0.25 mg [...] time per week 2 mL 10/05/2023 Active tiZANidine 4 mg oral tablet (20 [...] Discontinued EpiPen prn Activ e estrogens, conjugated (skilled nursing) 0.625 mg/ml vaginal cream (20 sources) Estrogen [...] 12/19/2023 Discontinued (Other) take 1 capsule by [facility] every twenty-four hours Vyvanse 50 [...] Comment on above: TAKE 1 CAPSULE BY [facility] EVERY DAY IN THE MORNING FOR [...] per week 3 mL 3 08/13/2024 Active sucralfate 1000 mg oral tablet (2 [...] abdominal pain; Translations: [Unspecified abdominal pain] Onset: Episodic Acute bronchitis (2 sources) Acute bronchitis; [...] angina pectoris; Translations: [Atherosclerotic heart disease of [place] coronary artery without angina pectoris] Onset: 2 12-12-2022 Chronic Diabetes mellitus without complication (9 sources) Type 2 diabetes mellitus; Translations: [Type [...] Translations: [Bilious vomiting] Episodic Nonspecific chest pain (9 sources) Chest pain; Translations: [Chest pain, unspecified] [...] foot] 05-15-2024 Episodic Other connective tissue disease (8 sources) Spasm; Translations: [Other muscle spasm] Onset: 5 10-11-2024 Episodic Other connective tissue disease (3 sources) Other specified disorders of muscle; Translations: [Pelvic floor dysfunction] Onset: 5 Episodic Other connective tissue disease (4 sources) Synovitis and tenosynovitis; Translations: [Other synovitis and tenosynovitis, right ankle and foot] 12-14-2024 Episodic Other connective tissue disease (4 sources) Enthesopathy of lower limb; Translations: [Other enthesopathy of right foot and ankle] 12-14-2024 Episodic Other female genital disorders (4 sources) [...] [Other constipation] Onset: 5 10-09-2024 Episodic Other liver diseases (1 source) Steatosis [...] Chronic Other nutritional; endocrine; and metabolic disorders (18 sources) Obesity caused by energy imbalance; Translations: [Morbid (severe) obesity due to excess calories] Onset: 5 12-16-2024 Chronic Other nutritional; endocrine; and metabolic disorders (18 sources) Obese class II; Translations: [Obesity, class [...] of hypertension] Onset: 3 09-23-2022 Episodic Other connective tissue disease (20 sources) Pelvic floor dysfunction; Translations: [Other specified disorders of muscle] Onset: 5 10-09-2024 Episodic Other connective tissue disease (1 source) [...] digestive system] Onset: 3 04-18-2023 Episodic Other gastrointestinal disorders (2 sources) Other constipation; Translations: [Chronic constipation] Onset: 5 Episodic Other infections; including parasitic (20 sources) [...] Test Name Value Interpretation Reference Range Facility MR LUMBAR SPINE WO CONTRASTo n 01-14-2025 MR LUMBAR SPINE WO CONTRAST EXAM: MR LUMBAR SPINE WO CONTRAST History: [...] spinal canal stenosis. ELECTRONICALLY SIGNED BY: Fuad Stern, DO Normal Not Available ALL CBC WITH AUTO DIFFon BASOPHILS ABSOLUTE AUTO 0.1 [facility] Basophils/100 WBC (Bld) 0.5 % 0.2 - 2.0 % [facility] Eosinophils/100 WBC (Bld) 3 % 0.9 - 7.0 % [facility] Erythrocyte distribution width (RBC) [Ratio] 12.7 % 11.0 - 15.0 % [facility] Hematocrit (Bld) [Volume fraction] 39.2 % 36.0 - 48.0 % [facility] Hemoglobin (Bld) [Mass/Vol] 13.3 g/dL 12.0 - 16.0 g/dL [facility] IMMATURE GRANULOCYTES ABS AUTO 0.27 High [facility] Immature granulocytes/100 WBC (Bld) 2.6 % High 0.0 - 0.5 % [facility] Interpretation and review of laboratory results Abnormal [facility] LYMPHOCYTES ABSOLUTE AUTO 2.5 [facility] Lymphocytes/100 WBC (Bld) 24.6 % 20.5 - 60.0 % [facility] MCH (RBC) [Entitic mass] 32.4 pg 26.7 - 34.0 pg [facility] MCHC (RBC) [Mass/Vol] 33.9 g/dL 29.9 - 35.2 g/dL [facility] MCV (RBC) [Entitic vol] 95.4 fL 81.0 - 99.0 fL [facility] MONOCYTES ABSOLUTE AUTO 0.5 [facility] Monocytes/100 WBC (Bld) 5.2 % 1.7 - 12.0 % [facility] NEUTROPHILS ABSOLUTE AUTO 6.6 High [facility] Neutrophils/100 WBC (Bld) 64.1 % 43.0 - 75.0 % [facility] Platelet mean volume (Bld) [Entitic vol] 9.9 fL 9.5 - 13.5 fL [facility] TBH EO # 0.3 [facility] TB PLT 244 [facility] RBC 4.11 Low [facility] WBC 10.3 [facility] EXERCISE STRESS ECG (WITHOUT IMAGING)on 01-08-2025 EXERCISE STRESS ECG (WITHOUT IMAGING) Stress ECG Report: Exercise Stress ECG (without Imaging) [place] [id number] Date of service: 01/08/2025 10:15:05 AM QUALITY MANAGER Ordering physician: SOLO MORA marketing project specialist: Elvia Caicedo Planning Assistant: Acacia Simeon Interpreting physician: Gracie Villanueva MD Patient name: ORION HARPER Age: 34 years Gender: F Height: 160.02 cm BSA: 2.03 m Weight: 92.53 kg BMI: 36.1 kg/m Indication: Syncope / near-syncope Stress ECG Conclusion: Conclusion: Normal with exception due to symptoms Comments: Pt c/o dizziness and seeing black spots during peak exercise. Slow to resolve during recovery. (~ 9 mins). Stress ECG Summary: The patient's resting heart rate was 100 bpm and blood pressure was 126/94 mmHg. The patient exercised according to the Chavies 10% protocol. The estimated end-exercise MET level achieved using the FRIEND equation was 6.5, which is within the 10th to 25th percentile for age and sex. The estimated end-exercise MET level achieved using the previous ACSM equation was 7.5. The test was terminated due to general fatigue and the total exercise time was 6 minutes and 36 seconds. Other symptoms during the test included dizziness. The maximum heart rate was 173 bpm, which is 94% of the predicted heart rate for age. This is an adequate heart rate response. Peak blood pressure was 154/92 mmHg. The double product achieved was [address]. Medications: Last Used INDERAL 2 Days METOPROLOL METOPROLOL METOPROLOL Resting ECG: Sinus Tachycardia Exercise Protocol: Ho 10% Stress Exercise Table: +-----+ +-- ------+ +--- +---+---+----+---+--- -+ Stage Speed (MPH) Grade(%) Time (min) HR SYS KATHERINE RPE SOB METS +-----+ +-- ------+ +--- +---+---+----+---+--- -+ 1 1.7 10.0 2.0 130 122 90 10.0 2.0 4.2 +-----+ +-- ------+ +--- +---+---+----+---+--- -+ 2 2.1 11.0 4.0 141 146 86 12.0 3.0 5.1 +-----+ +-- ------+ +--- +---+---+----+---+--- -+ 3 2.5 12.0 6.0 153 154 92 14.0 3.0 6.1 +-----+ +-- ------+ +--- +---+---+----+---+--- -+ +-----+ +-- -------+ +-- -+---+---+----+---+-- --+ Speed (MPH) Grade (%) Time (min) HR SYS KATHERINE RPE SOB METS +-----+ +-- -------+ +-- -+---+---+----+---+-- --+ Final 3.0 13.0 6.60 173 154 92 18.0 6.0 6.5 +-----+ +-- -------+ +-- -+---+---+----+---+-- --+ +-----+ + Symptoms +-----+ + Final Dizziness. +-----+ + Recovery Table: +------+ +- -------+ +-- -+---+---+----+ Stage Speed (MPH) Grade(%) Time (min) HR SYS KATHERINE METS +------+ +- -------+ +-- -+---+---+----+ 1 1.5 2.5 1.0 151 170 74 2.7 +------+ +- -------+ +-- -+---+---+----+ 2 1.5 2.5 2.0 136 2.7 +------+ +- -------+ +-- -+---+---+----+ 3 3.0 126 178 90 +------+ +- -------+ +-- -+---+---+----+ 4 5.0 114 144 80 +------+ +- -------+ +-- -+---+---+----+ 5 7.0 115 +------+ +- -------+ +-- -+---+---+----+ 6 9.0 112 112 74 +------+ +- -------+ +-- -+---+---+----+ +-----+ ---+ --+ Stage Arrhythmias Symptoms +-----+ ---+ --+ 1 Dizziness resolving +-----+ ---+ --+ 2 Dizziness resolving +-----+ ---+ --+ 3 Dizziness resolving +-----+ ---+ --+ 4 Rare PAC (<3/min) Dizziness resolving +-----+ ---+ --+ 6 Dizziness resolved +-----+ ---+ --+ Stress Observations: Resting HR: 100 bpm Peak HR: 173 bpm (94% MPHR) Resting BP: 126 / 94 mmHg Peak BP: 154 / 92 mmHg Total exercise time: 6 minutes 36 seconds METS achieved: 6.5 Chronotropic response index (CRI): 0.87 Heart rate recovery (HRR): 22 bpm Rate Pressure Product (RPP): 51324 Stress Exercise Observations: Reason for test termination: general fatigue Symptoms during test: Other symptoms during the test included dizziness Heart rate response: Adequate heart rate response, Normal CRI (>0.8 Not on B Taylor) and Normal HRR (>12 or >[address]/EC) Blood pressure response: Normal BP response ST segment and T wave changes: No ST changes Goss Treadmill Score: Normal Goss Treadmill Score (>=5) Arrhythmias: PACs Metabolic Exercise Data Variable: Observed value [Expected Range] HGI: 1.1 [>1.06 bpm/mmHg] IMPORTANT NOTE REGARDING ESTIMATED MET VALUES: Effective 02/09/2020, the reference equation for determining estimated MET values for [facility] stress tests changed. Comparison of test results before and after that date may show a change in estimated M (more content not included)... Normal [facility] Urology Office/Clinic Noteon 01-01-2025 Urology Office/Clinic Note [...] Urnls Dip Stick Auto w/o Microscopy POC 65192 2. Kidney stones (N20.0: Calculus of kidney) S/p R ESWL KUB 06/29/22 at [facility] - [...] in 1 year w/ MAYA and KUB ([facility]) prior, or sooner if needed Ordered: Urnls Dip Stick Auto w/o Microscopy POC 29701 3. Stress incontinence (N39.3: Stress incontinence (female) [...] (unknow) So (more content not included)... Normal [facility] Comment on above: [...] HAGEN MD This Is Your Medications List [facility] Prescription (BUPROPION HYDROCHLORIDE ER (XL) 300 MG [...] Iliana Cramer PA-C Where: [facility] [address] [address]- Medications What How Much When Why Instructions [...] signed up for this yet, please contact [employer] at [phone] to get signed up today. Language Information Language assistance services are available as needed. Kelsy [facility] CNOVon 12-30-2024 [facility] ORION HARPER ([id number]) 1990 F Date Time Provider Department 12/30/24 9:00 AM EMMA YING [facility] During your visit today, we recorded the following information about you: Blood pressure Weight 132/94 92.9 kg Emma Ying APRN.HIGHWAY WORKER 12/30/2024 10:35 AM Signed [facility] SECTION FOR CHRONIC PELVIC PAIN OUTPATIENT VISIT DATE 12/30/2024 OUTPATIENT VISIT TYPE CONSULT REFERRING PROVIDER: Javy Boudreaux MD PRIMARY CARE PROVIDER: Giovani Hagen MD, MD PRIMARY GAS APPLIANCE MECHANIC: Consultation requested by referring provider above for an opinion regarding Orion Harper, and my final recommendations will be communicated back to the requesting physician by way of shared medical record or letter via US mail. Recording using Vehcon software for draft documentation of the visit was discussed with the patient/authorized claims representative; all questions welcomed and answered. Patient/authorized claims representative agreed to proceed CHIEF COMPLAINT/REASON FOR [...] is not in contact with those individuals. Rehabilitation Aide/Scheduler Hx: (page 3) Menarche: 9 Currently experiences: Not menstruating Duration of dysmenorrhea symptoms: n/a Currently missing school/work: N/A Prior dysmenorrhea treatment: Other, Hysterectomy Current control: Nothing History of STD: Negative history [place] intake LMP: Patient's last menstrual period was 05/25/2015. Cycles: Hysterectomy, Flow: n/a Intermenstrual spotting between periods: N/A Last pap: Pap Results: WNL 03/20/2024, HPV: History of abnormal pap: Yes [place]: ([place] intake) Dyspareunia: both insertional and deep [...] Pain characteristics: (page 5) Pain started (month/year): 1210-1138 Inciting event: No obvious cause/do not know Onset: Gradual Duration of pain: 2-5 years Character of pain: Sharp, stabbing Wakes from sleep: No Radiation of pain: No Aggravating factors: [place]/Sexual contact Alleviating factors: Nothing makes it better Bowel habits: (page 12-13) Nause (more content not included)... Normal [facility] XR Foot - right 3 [facility] Result: Radiographs: Three views were taken today AP/MORT/LAT Ankle: No fractures or dislocations seen mild swelling circumferentially around the ankle. Small leanne fracture noted of the medial aspect of the medial malleolus. [facility] XR Foot - right 3 [facility] Study observation (narrative) [facility] MLR HEMOGLOBIN A1Con 025 Glucose [Mass/Vol] 114 mg/dL [facility] HbA1c (Bld) [Mass fraction] 5.6 % 4.5 - 6.2 % [facility] Comment on above: ADA RECOMMENDED LIMI T 4.0 - 6.0 ADA THERAPEUTIC TARGET < 7.0 ACTION SUGGESTED > 7.0 [facility] No Panel InformationOrdered By: Radiologist Radiology on 10-23-2024 [facility] Work Phone: No Panel Informationon 10-23 Radiology Study observation (narrative) [facility] XR ABDOMEN 1V SUPINEon 10-23 * * [...] No radiopaque markers are noted in the idgbo-ft-xxoe. IMPRESSION: 0 Sitzmarks markers. The previously noted [...] any questions regarding this interpretation, please call [phone]. If you are unable to reach us at the number above, please feel free to contact [facility] at [phone]. [id number]^[email or web address]_IDC^SI ^ACN [facility] Radiology, Radiologist, - 10/23/2024 * * *Final [...] No radiopaque markers are noted in the endtq-lx-okxb. IMPRESSION: 0 Sitzmarks markers. The previously noted [...] any questions regarding this interpretation, please call [phone]. If you are unable to reach us at the number above, please feel free to contact [facility] at [phone]. [id number]^AGFA_IDC^SI ^ACN [facility] XR ABDOMEN 1V SUPINE * * *Final [...] No radiopaque markers are noted in the dpirn-wh-nslo. IMPRESSION: 0 Sitzmarks markers. The previously noted [...] any questions regarding this interpretation, please call [phone]. If you are unable to reach us at the number above, please feel free to contact [facility] at [phone]. [id number] N Normal [facility] XR Abdomen Supine and Uprigh ton [...] any questions regarding this interpretation, please call [phone]. If you are unable to reach us at the number above, please feel free to contact [facility] at [phone]. DIVISION OF RADIOLOGY * * *Final Report* [...] No radiopaque markers are noted in the yqzwv-qv-phig. DIVISION OF RADIOLOGY Provider, Alexandra Shemar Bray - 10/23/2024 * * *Final Report* [...] No radiopaque markers are noted in the rzmzr-iv-nljh. IMPRESSION IMPRESSION: 0 Sitzmarks markers. The previously [...] any questions regarding this interpretation, please call [phone]. If you are unable to reach us at the number above, please feel free to contact [facility] at [phone]. [facility] MRI HEAD/BRAIN WO/W CONTRon 10-21-[address] [address] Magnetic Resonance Report Signed Patient: ORION HARPER MR#: [id number] : 1990 Acct:[id number] Age/Sex: 34 / F ADM Date: 10/21/24 Loc: MRI Attending Dr: SHANNON DARDEN Ordering Physician: SHANNON DARDEN Date of Service: 10/21/24 Procedure(s): MR head/brain wo/w con Accession Number(s): [id number] cc: GIOVANI HAGEN ; SHANNON DARDEN [address] [address] Patient Name: ORION HARPER MRN: [facility]:[id number] date: 1990 Sex: F Assigned Patient Location: MRI Current Patient Location: MRI Accession/Order Number: [id number] Exam Date: 10/21/2024 11:17 Report Date: 10/21/2024 [...] Knight M.D. 10/21/2024 11:39 AM Dictation Location: [place] [address] Electronically authenticated by: [id number] Y Date: 10/21/2024 11:39 Dictated By: Sandy Knight M.D. Signed By: 10/21/24 1142 DD/ 1139 TD/TT: Roll Plugger: [facility] Radiology, Radiologist, MD - 10/21/2024 [place] [address] Magnetic Resonance Report Signed Patient: ORION HARPER MR#: [id number] : 1990 Acct:[id number] Age/Sex: 34 / F ADM Date: 10/21/24 Loc: MRI Attending Dr: SHANNON DARDEN Ordering Physician: SHANNON DARDEN Date of Service: 10/21/24 Procedure(s): MR head/brain wo/w con Accession Number(s): [id number] cc: GIOVANI HAGEN ; SHANNON DARDEN [place] [address] Patient Name: ORION HARPER MRN: [id number] date: 1990 Sex: F Assigned Patient Location: MRI Current Patient Location: MRI Accession/Order Number: [id number] Exam Date: 10/21/2024 11:17 Report Date: 10/21/2024 [...] Knight M.D. 10/21/2024 11:39 AM Dictation Location: [place] [address] Electronically authenticated by: [id number] Y Date: 10/21/2024 11:39 Dictated By: Sandy Knight M.D. Signed By: 10/21/24 1142 DD/ 1139 TD/TT: Roll Plugger: [facility] [employer] Radiology Study observation (narrative) [facility] MRI HEAD/BRAIN WO/W CONTROrd ered By: Radiologist Radiology on 10-21-2024 [facility] [employer] Work Phone: XR ABDOMEN 1V SUPINEon 10-21 [...] Sitzmarks markers. IMPRESSION: Sitzmarks markers as described. Roll Plugger: [facility] Transcribe Date/Time: Oct 28 2024 9:07A Dictated by : ANNITA STILL MD This examination was interpreted and the report reviewed and electronically signed by: ANNITA STILL MD on Oct 28 2024 9:08AM EST [id number] [facility] [id number] 10-11-2024 [id number] HNO ID: [id number] Author: LYDIA ROCK PT, DPT Service: ? Author Type: Physical Therapist Type: [id number] Filed: 10/11/2024 15:55 Note Text: [facility] Physical Therapy Plan of Care Certification Patient Name: Orion Harper : 1990 [facility] #: [id number] Date: 10/11/2024 To: Mario Harper APRN* From [...] Planned: 4 Planned Treatment Interventions: Therapeutic exercise (62325), Neuromuscular re-education (71151), Manual therapy (01303), Therapeutic activities (99009), Self-senior living management (04856), Patient/Family/Caregi nataliia Education, Body Mechanics Training PLAN [...] reviewed the treatment plan for Orion Harper, [facility]# [id number] for the period of 10/11/24 -- 01/09/25, established on 10/11/2024. Signature certifies the need for therapy services. Normal [facility] CNTHERAPYon 10-11-2024 CNTHERAPY OT/PT/Speech Visit (PTCORD) ORION HARPER ([id number]) 1990 F Date Time Provider Department 10/11/24 2:45 PM LYDIA ROCK Date Time Provider Department Center 10/11/2024 2:45 PM [id number] ROCK [facility] Reason for Visit: PT Eval [747] PT Discharge [752] Primary Visit Diagnosis:Muscle spasm [M62.838] Other Visit [...] Date Reviewed: 10/09/2024 Reviewed by: Mario Harper APRN.HIGHWAY WORKER - Fully Assessed Prescriptions as of 01/14/2025 - clonazePAM (KLONOPIN) 0.5 mg tablet Take 1 mg by mouth. - cyclobenzaprine (FLEXERIL) 5 mg tablet take 1 tablet by mouth three times a day for 14 days - FARXIGA 10 mg tablet Take 10 mg by mouth once daily. - diclofenac, EC, (VOLTAREN) 75 mg EC tablet 1 tab(s) orally 2 times a day for 30 day(s) - doxepin capsule 100 mg take 2 capsules (200 mg) by mouth at bedtime - traMADol (ULTRAM) 50 mg tablet Take by mouth. - tiZANidine (ZANAFLEX) 4 mg tablet - propranolol (INDERAL) 10 mg tablet every 12 hours. - predniSONE (DELTASONE) 10 mg tablet PLEASE SEE ATTACHED FOR DETAILED DIRECTIONS - prazosin (MINIPRESS) 2 mg cap Take 2 mg by mouth. - OXcarbazepine (TRILEPTAL) 300 mg tablet Take 300 mg by mouth. - ondansetron (ZOFRAN) 4 mg tablet Take 4 mg by mouth every 8 hours as needed for nausea/vomiting. - OLANZapine (ZYPREXA) 2.5 mg tablet - buPROPion XL (WELLBUTRIN XL) 300 mg 24 hr tablet 300 mg. - cyclobenzaprine (FLEXERIL) [address] 1 tab per vagina up to TID prn pain/spasm, if no effect may try 2 tabs TID prn. - metoprolol succinate ER (TOPROL XL) 25 [...] 4.5 mg by mouth once daily. Normal [facility] CNOVon 10-09-2024 CNOV Office Visit ([facility] ) ORION HARPER ([id number]) 1990 F Date Time Provider Department 10/09/24 1:00 PM MARIO HARPER [facility] During your visit today, we recorded the following information about you: Pulse Blood pressure Weight 106/minute 112/76 86.6 kg Meredith Mario, BASSAM.HIGHWAY WORKER 10/09/2024 2:03 PM Signed COLORECTAL SURGERY October 09, 2024 Orion Harper 34 year old This consult was requested by Dr. Winn and my final recommendations will be communicated to the requesting health care provider by way of the shared medical record for internal providers or letter via the [employer] for external providers. Recording using Vehcon software for draft documentation of the visit was discussed with the patient/authorized claims representative; all questions welcomed and answered. Patient/authorized claims representative agreed to proceed Chief Complaint: hemorrhoids, [...] pt complaine (more content not included)... Normal [facility] CNPNon 10-01-2024 CNPN Telephone (LYNFRANCICSO) MEREDITHORION Mcclellan ([id number]) 1990 F Date Time Provider Department 10/01/24 [...] Order(s):CONSULT TO COLO-RECTAL SURGERY [] Order #: [id number]: 1 FUTURE Prescriptions as of 10/02/2024 - [...] Status:Closed by ILIANA MERCADO on 10/01/24 Normal [facility] Cholesterol [Mass/volume] in Serum or PlasmaOrdered By: Dank Green on 08-17-2024 Cholesterol [Mass/Vol] Cholesterol [Mass/volume] in Serum or Plasma 140-200 [facility] Comment on above: Chol less than 200 m g/dl low riskChol 201-239 mg/dl borderline riskChol 240 mg/dl and greater high risk Cholesterol in HDL [Mass/vol ume] in Serum or PlasmaOrdered By: Dank Green on 08-17-2024 Cholesterol in HDL [Mass/Vol] Serum or plasma high density lipoprotein (HDL) cholesterol measurement [facility] Comment on above: HDL CHOL ATP-III CLA SSIFICATION Cardiovascular RiskHDL > or equal to 60 mg/dL LOWHDL < 40 mg/dL HIGH Cholesterol in LDL Calc [Mas s/Vol]Ordered By: Dank Green on 08-17-2024 Cholesterol in LDL [Mass/Vol] Cholesterol in LDL [Mass/volume] in Serum or Plasma by calculation High 0-100 [facility] Comment on above: LDL ATP III CLASSIFI CATIONLDL less than 100 mg/dL OptimalLDL 100-129 mg/dL Near or above optimalLDL 130-159 mg/dL Borderline highLDL 160-189 mg/dL HighLDL greater than 189 mg/dL Very high Cholesterol in VLDL Calc [Ma ss/Vol]Ordered By: Dank Green on 08-17-2024 Cholesterol in VLDL [Mass/Vol] Cholesterol in VLDL [Mass/volume] in Serum or Plasma by calculation [facility] Lipid Panelon 08-17-2024 Cholesterol [Mass/Vol] 183 mg/dL Normal 140-200 [facility] Comment on above: Result Comment: Chol less than 200 mg/dl low risk Chol 201-239 mg/dl borderline risk Chol 240 mg/dl and greater high risk Performed By: #### T SH3 wRFLX, LIPID, [id number] #### [address] Cholesterol in HDL [Mass/Vol] 59 mg/dL Normal [facility] Comment on above: Result Comment: HDL CHOL ATP-III CLASSIFICATION Cardiovascular Risk HDL > or equal to 60 mg/dL LOW HDL < 40 mg/dL HIGH Performed By: #### T SH3 wRFLX, LIPID, [id number] #### [facility] [address] Cholesterol.total/Chol esterol in HDL [Mass ratio] 3.1 {ratio} Normal <5.0 [facility] Comment on above: Performed By: #### T SH3 wRFLX, LIPID, [id number] #### [facility] [address] LDL Cholesterol,Calculated 101 mg/dL High 0-100 [facility] Comment on above: Result Comment: LDL ATP III CLASSIFICATION LDL less than 100 mg/dL Optimal LDL 100-129 mg/dL Near or above optimal LDL 130-159 mg/dL Borderline high LDL 160-189 mg/dL High LDL greater than 189 mg/dL Very high Performed By: #### T SH3 wRFLX, LIPID, [id number] #### [facility] [address] Triglyceride w/Reflex 113 mg/dL Normal 0-149 [facility] Comment on above: Result Comment: TRIG ATP III CLASSIFICATION TRIG less than 150 mg/dL Normal TRIG 150-199 mg/dL Borderline high TRIG 200-500 mg/dL High TRIG greater than 500 mg/dL Very high Standard traceable to the Center for Disease Conrtrol and Prevention (CDC) test method. Performed By: #### T SH3 wRFLX, LIPID, [id number] #### [facility] [address] VLDL CHOLESTEROL 22 mg/dL Normal [facility] Comment on above: Performed By: #### T SH3 wRFLX, LIPID, [id number] #### [facility] [address] Serum or plasma total choles terol/high density lipoprotein (HDL) cholesterol mass ratOrdered By: Dank Green on 08-17-2024 Cholesterol.total/Chol esterol in HDL [Mass ratio] Serum or plasma total cholesterol/high density lipoprotein (HDL) cholesterol mass rat <5.0 [facility] Thyroid Stim Hormone w/Rflxo n 08-17-2024 Thyroid Stim Hormone w/Rflx 3.84 u[iU]/mL Normal 0.45-5.33 [facility] Comment on above: Performed By: #### T SH3 wRFLX, LIPID, [id number] #### [facility] [address] Thyrotropin [Units/volume] i n Serum or PlasmaOrdered By: Dank Green on 08-17-2024 TSH Qn Thyrotropin [Units/volume] in Serum or Plasma 0.45-5.33 [facility] Triglyceride [Mass/volume] i n Serum or PlasmaOrdered By: Dank Green on 08-17-2024 Triglyceride [Mass/Vol] Triglyceride [Mass/volume] in Serum or Plasma 0-149 [facility] Comment on above: TRIG ATP III CLASSIF ICATIONTRIG less than 150 mg/dL NormalTRIG 150-199 mg/dL Borderline highTRIG 200-500 mg/dL High TRIG greater than 500 mg/dL Very highStandard traceable to the Center for Disease Conrtrol and Prevention (CDC) test method. Vitamin D 25 Hydroxy Totalon 08-17-2024 Vitamin D 25 Hydroxy Total 13.6 ng/mL Low 30-100 [facility] Comment on above: Result Comment: MAYA MIN D STATUS 25(OH)VITAMIN D RANGE (ng/mL) Deficient <20 Insufficient 20 to <30 Sufficient 30 to 100 Reference: Umesh MF,Cheyanne NC, Elio MELVIN, et al. Evaluation,treatment, and prevention of vitamin D deficiency; an Endocrine Society clinical practice guideline. JCEM. 2010; 96(7):1911-30. PERFORMED BY: [place] [address] PATHOLOGIST BLISTER PACKAGING MACHINE OPERATOR PADILLA MOLINA M.D. Performed By: #### T SH3 wRFLX, LIPID, [id number] #### [facility] [address] Vitamin D+Metabolites [Mass/ volume] in Serum or PlasmaOrdered By: Dank Green on 08-17-2024 Vitamin D+Metabolites [Mass/Vol] Vitamin D+Metabolites [Mass/volume] in Serum or Plasma Low 30-100 [facility] Comment on above: VITAMIN D STATUS 25( OH)VITAMIN D RANGE (ng/mL) Deficient <20 Insufficient 20 to <30Sufficient 30 to 100Reference: Umesh MF,Cheyanne NC, Elio MELVIN, et al. Evaluation,treatment, and prevention of vitamin D deficiency; an Endocrine Society clinical practice guideline. JCEM. 2010; 96(7):1911-30. CNOVon 08-13-2024 CNOV Office Visit ([facility]DM[facility] ) MEREDITHORION A ([id number]) 1990 F Date Time Provider Department 08/13/24 2:30 PM SOLO MORA [facility] During your visit today, we recorded the following information about you: Pulse Blood pressure Weight Height 92/minute 140/96 81.6 kg 1.6 m Solo Mora MD 08/26/2024 3:56 PM [facility] [place] Meghna Hooker Department of Cardiovascular Medicine SECTION OF CARDIAC PACING and ELECTROPHYSIOLOGY OUTPATIENT VISIT DATE August 13, 2024 OUTPATIENT VISIT TYPE ESTABLISHED PRIMARY CARE PHYSICIAN: Giovani Hagen MD [address] [place] [address] CHIEF COMPLAINT: Syncope HISTORY OF PRESENT ILLNESS:(NURSING [...] for ischemia (more content not included)... Normal [facility] STRESS ECHO TREADMILLon 04-2 STRESS ECHO TREADMILL Stress Director International Report: Stress Echo [facility] J1-5 Date of service: 08/13/2024 12:34:08 PM QUALITY MANAGER Supervising physician: Geremias Higuera MD PATIENT: Name: ORION HARPER Age: 33 years Gender: F The supervising physician was in the department and immediately available. Final -------- Echocardiography Report: Stress Echo [facility] J1-5 Date of service: 08/13/2024 12:34:08 PM QUALITY MANAGER Ordering physician: SOLO MORA Indication: Syncope Technologist: [...] the prior echocardiographic exam performed on 04/09/2024 ([place]). The major resting echocardiographic findings are comparable. Final -------- Stress ECG Report: Stress Echo [facility] J1-5 Date of service: 08/13/2024 12:34:08 PM QUALITY MANAGER Ordering physician: SOLO MORA marketing project specialist: Bunny Epperson Fellow: Kiley Gallagher MD [...] estimated e (more content not included)... Normal [facility] 07-26-2024 CNPN Telephone (TANI) ORION HARPER ([id number]) 1990 F Date Time Provider Department 07/26/24 [...] Iliana, Looks like labs were completed at [facility]. Patient is asking about results. Thank [...] Encounter Status:Closed by ACACIA GONZALEZ on 08/15/24 [facility] CNOVon 07-10-2024 CNOV Office Visit (OBGYCC ) MEREDITHORION A ([id number]) 1990 F Date Time Provider Department 07/10/24 [...] painful intercourse Referred here by her DIRECTOR LIFE SALES at [place]. Has been having pain with intercourse for [...] PELVIC US WHI - CONSULT TO DIRECTOR LIFE SALES PELVIC PAIN 2. Pelvic pain in female - ICD9: 625.9, ICD10: R10.2 - counseled. - PELVIC US WHI - CONSULT TO DIRECTOR LIFE SALES PELVIC PAIN Javy Boudreaux MD Medical Decision Making: Problems: Moderate: New problem with uncertain prognosis Data: Unique test(s) ordered: 2 Risk: Low: Low risk from testing/treatment Medical Decision Making Level: 3 - Low Referring Provider: DARWIN STARR [[id number]] Allergies As of Date: 07/10/2024 Noted Allergy [...] Diagnosis:Pelvic edward (more content not included)... Normal [facility] Comprehensive metabolic 2000 panelon 07-10-2024 Albumin [Mass/Vol] 4.5 g/dL Normal 3.9-4.9 [facility] Comment on above: Order Comment: Speci men Type: STOOL SPECIMEN Ordering Facility: [facility] Address: [address] [place] [address] Performed By: #### 5 4067-4, CDEIA #### [facility] CLIA [id number] [address] [place] [address] [place] ALP [Catalytic activity/Vol] 130 U/L High 34-123 [facility] Comment on above: Order Comment: Speci men Type: STOOL SPECIMEN Ordering Facility: [facility] Address: [address] [place] [address] Performed By: #### 5 4067-4, CDEIA #### [facility] CLIA [id number] [address] [place] [address] [place] ALT [Catalytic activity/Vol] 141 U/L High 7-38 [facility] Comment on above: Order Comment: Speci men Type: STOOL SPECIMEN Ordering Facility: [facility] Address: [address] [place] [address] Performed By: #### 5 4067-4, CDEIA #### [facility] CLIA [id number] [address] [place] [address] [place] Anion gap [Moles/Vol] 11 mmol/L Normal 8-15 [facility] Comment on above: Order Comment: Speci men Type: STOOL SPECIMEN Ordering Facility: [facility] Address: [address] [place] [address] Performed By: #### 5 4067-4, CDEIA #### [facility] CLIA [id number] [address] [place] [address] [place] AST [Catalytic activity/Vol] 90 U/L High 13-35 [facility] Comment on above: Order Comment: Speci men Type: STOOL SPECIMEN Ordering Facility: [facility] Address: [address] [place] [address] Performed By: #### 5 4067-4, CDEIA #### [facility] CLIA [id number] [address] [place] [address] [place] Bilirubin [Mass/Vol] 0.4 mg/dL Normal 0.2-1.3 [facility] Comment on above: Order Comment: Speci men Type: STOOL SPECIMEN Ordering Facility: [facility] Address: [address] [place] [address] Performed By: #### 5 4067-4, CDEIA #### [facility] CLIA [id number] [address] [place] [address] [place] Calcium [Mass/Vol] 9.4 mg/dL Normal 8.5-10.2 [facility] Comment on above: Order Comment: Speci men Type: STOOL SPECIMEN Ordering Facility: [facility] Address: [address] [place] [address] Performed By: #### 5 4067-4, CDEIA #### [facility] CLIA [id number] [address] [place] [address] [place] Chloride [Moles/Vol] 102 mmol/L Normal 98-107 [facility] Comment on above: Order Comment: Speci men Type: STOOL SPECIMEN Ordering Facility: [facility] Address: [address] [place] [address] Performed By: #### 5 4067-4, CDEIA #### [facility] CLIA [id number] [address] [place] [address] [place] CO2 [Moles/Vol] 23 mmol/L Normal 22-30 [facility] Comment on above: Order Comment: Speci men Type: STOOL SPECIMEN Ordering Facility: [facility] Address: [address] [place] [address] Performed By: #### 5 4067-4, PEREZA #### [facility] CLIA [id number] [address] [place] [address] [place] Creatinine [Mass/Vol] 0.71 mg/dL Normal 0.58-0.96 [facility] Comment on above: Order Comment: Speci men Type: STOOL SPECIMEN Ordering Facility: [facility] Address: [address] [place] [address] Performed By: #### 5 4067-4, PEREZA #### [facility] CLIA [id number] [address] [place] [address] [place] Creatinine and Glomerular filtration rate.predicted panel (S/P/Bld) 114 mL/min/1.73m??? Normal >=60 [facility] Comment on above: Order Comment: Rl men Type: STOOL SPECIMEN Ordering Facility: [facility] Address: [address] [place] [address] Result Comment: Chely mated Glomerular Filtration Rate [...] actual GFR. Performed By: #### 5 4067-4, ETHAN #### [facility] CLIA [id number] [address] [place] [address] [place] Glucose [Mass/Vol] 121 mg/dL High 74-99 [facility] Comment on above: Order Comment: Speci men Type: STOOL SPECIMEN Ordering Facility: [facility] Address: [address] [place] [address] Result Comment: The [place] Diabetes Association (ADA) [...] Performed By: #### 5 4067-4, CDEIA #### [facility] CLIA [id number] [address] [place] [address] [place] Potassium [Moles/Vol] 3.6 mmol/L Low 3.7-5.1 [facility] Comment on above: Order Comment: Speci men Type: STOOL SPECIMEN Ordering Facility: [facility] Address: [address] [place] [address] Performed By: #### 5 4067-4, CDEIA #### [facility] CLIA [id number] [address] [place] [address] [place] Protein [Mass/Vol] 7.3 g/dL Normal 6.3-8.0 [facility] Comment on above: Order Comment: Speci men Type: STOOL SPECIMEN Ordering Facility: [facility] Address: [address] [place] [address] Performed By: #### 5 4067-4, CDEIA #### [facility] CLIA [id number] [address] [place] [address] [place] Sodium [Moles/Vol] 136 mmol/L Normal 136-144 [facility] Comment on above: Order Comment: Speci men Type: STOOL SPECIMEN Ordering Facility: [facility] Address: [address] [place] [address] Performed By: #### 5 4067-4, CDEIA #### [facility] CLIA [id number] [address] [place] [address] [place] Urea nitrogen [Mass/Vol] 9 mg/dL Normal 7-21 [facility] Comment on above: Order Comment: Speci men Type: STOOL SPECIMEN Ordering Facility: [facility] Address: [address] [place] [address] Performed By: #### 5 4067-4, CDEIA #### [facility] CLIA [id number] [address] [place] [address] [place] Ferritin SerPl-mCncon 2024 Ferritin [Mass/Vol] 392.0 ng/mL High 14.7-205.1 [facility] Comment on above: Order Comment: Speci men Type: STOOL SPECIMEN Ordering Facility: [facility] Address: [address] [place] [address] Performed By: #### 5 4067-4, CDEIA #### [facility] CLIA [id number] [address] [place] [address] [place] US Pelvison 07-10-2024 [...] Read By: Lulú Washburn M.D. MATERNAL MEDICINE [facility] Radiology Study observation (narrative) [facility] XR ABD 2V SUPINE W UPR/DECUB [...] IMPRESSION: Mild to moderate colonic stool content Roll Plugger: MINAL Transcribe Date/Time: Jul 13 2024 9:59A Dictated by : BUNNY LIANG MD This examination was interpreted and the report reviewed and electronically signed by: BUNNY LIANG MD on Jul 13 2024 10:05AM EST [id number] Normal [facility] XR Ankle - right 3 Viewson 0 07-03-2024 Imaging Result: Three views were taken today AP/MORT/LAT Ankle: No fractures or dislocations seen joint in good position and alignment [facility] Radiology Study observation (narrative) [facility] RECURRENT VAGINITIS (HTRX)on 06-26-2024 ATOPOBIUM VAGINAE 0 [facility] ATOPOBIUM VAGINAE Not detected [facility] BVAB 2,3 (BACTERIAL VAGINOSIS ASSOCIATED BACTERIA 2, 3); MOBILUNCUS SPP 0 [facility] BVAB 2,3 (BACTERIAL VAGINOSIS ASSOCIATED BACTERIA 2, 3); MOBILUNCUS SPP Not detected [facility] SHARIF ALBICANS, PARAPSILOSIS, TROPICALIS 0 [facility] SHARIF ALBICANS, PARAPSILOSIS, TROPICALIS Not detected [facility] SHARIF GLABRATA 0 [facility] SHARIF GLABRATA Not detected [facility] SHARIF KRUSEI 0 [facility] SHARIF KRUSEI [facility] CHLAM[facility] TRACH[facility]ATIS [facility] CHLAMYDIA TRACHOMATIS Not detected [facility] GARDNERELLA VAGINALIS 0 [facility] GARDNERELLA VAGINALIS Not detected [facility] MEGASPHAERA (TYPES 1, 2) 0 [facility] MEGASPHAERA (TYPES 1, 2) Not detected [facility] MYCOPLASMA GENITALIUM 0 [facility] MYCOPLASMA GENITALIUM Not detected [facility] NEISSERIA GONORRHOEAE 0 [facility] NEISSERIA GONORRHOEAE Not detected N [facility] Healthcare TRICHOMONAS VAGINALIS 0 [facility] S [facility] TRICHOMONAS VAGINALIS Not detected [facility] Healthcare MLR HEMOGLOBIN A1Con 025 Glucose [Mass/Vol] 126 mg/dL [facility] HbA1c (Bld) [Mass fraction] 6 % 4.5 - 6.2 % [facility] Comment on above: ADA RECOMMENDED LIMI T 4.0 - 6.0 ADA THERAPEUTIC TARGET < 7.0 ACTION SUGGESTED > 7.0 [facility] ALL CBC WITH AUTO DIFFon BASOPHILS ABSOLUTE AUTO 0 [facility] Basophils/100 WBC (Bld) 0.4 % 0.2 - 2.0 % [facility] Eosinophils/100 WBC (Bld) 4.4 % 0.9 - 7.0 % [facility] Erythrocyte distribution width (RBC) [Ratio] 13.2 % 11.0 - 15.0 % [facility] Hematocrit (Bld) [Volume fraction] 41.6 % 36.0 - 48.0 % [facility] Hemoglobin (Bld) [Mass/Vol] 14 g/dL 12.0 - 16.0 g/dL [facility] IMMATURE GRANULOCYTES ABS AUTO 0.13 High [facility] Immature granulocytes/100 WBC (Bld) 1.6 % High 0.0 - 0.5 % [facility] Interpretation and review of laboratory results Abnormal [facility] LYMPHOCYTES ABSOLUTE AUTO 2.7 [facility] Lymphocytes/100 WBC (Bld) 33.8 % 20.5 - 60.0 % [facility] MCH (RBC) [Entitic mass] 32.6 pg 26.7 - 34.0 pg [facility] MCHC (RBC) [Mass/Vol] 33.7 g/dL 29.9 - 35.2 g/dL [facility] MCV (RBC) [Entitic vol] 96.7 fL 81.0 - 99.0 fL [facility] MONOCYTES ABSOLUTE AUTO 0.5 [facility] Monocytes/100 WBC (Bld) 5.9 % 1.7 - 12.0 % [facility] NEUTROPHILS ABSOLUTE AUTO 4.4 [facility] Neutrophils/100 WBC (Bld) 53.9 % 43.0 - 75.0 % [facility] Platelet mean volume (Bld) [Entitic vol] 10.4 fL 9.5 - 13.5 fL [facility] EO # 0.4 [facility] PLT 257 [facility] RBC 4.3 [facility] WBC 8.1 [facility] C. difficile toxin genes SHEILA +probe Ql (Stl)on 05-23-2024 Interpretation and review of laboratory results Abnormal [facility] CLOSTRIDIUM DIFFICILE TOXIN BY PCRon 05-23-2024 C. difficile toxin genes SHEILA+probe Ql (Stl) Positive Abnormal Negative for C. difficile toxin by PCR [facility] Comment on above: A positive PCR [...] [place] 05-23-2024 ISABELN Telephone (TANI) ORION HARPER ([id number]) 1990 F Date Time Provider Department 05/23/24 ILIANA MERCADO During your visit today, we recorded the following information about you: Benito Soriano, RN 05/23/2024 3:25 PM Signed ----- Message from Iliana Mercado PA-C sent at 05/23/2024 3:18 PM EST ----- Please provide information on precautions and information regarding Cdiff. Thank you Iliana Mercado PA-C ----- Message ----- From: Carol Winn MD Sent: 05/23/2024 2:44 PM EST To: VINH Mohr-Quiana Atkins, your stool is positive for C.diff I sent a script for vancomycin to take for 2 weeks. A script is sent Iliana, patient had Diarrhea for 2-3 weeks. Had bronchitis prior to that and was given steroids and antibiotics. Stool sample was collected during the colonoscopy Please Iliana send the patient information about c.diff and precautions to follow Craol Winn MD Allergies As of Date: 05/23/2024 [...] Status:Closed by BENITO SORIANO on 05/24/24 Normal [facility] ANES POSTPROC EVALon 025 ANES POSTPROC EVAL HNO ID: [id number] Author: OBED BHATT APRN.CRNA Service: Anesthesiology Author Type: Nurse Supplier Quality Engineering Manager Type: Anesthesia Postprocedure Evaluation Filed: 05/22/2024 14:22 Note Text: POST ANESTHESIA EVALUATION NOTE : 1990 Procedure Summary Date: 05/22/24 Room / Location: Ambulatory Surgery Anesthesia Start: 1345 Anesthesia Stop: 1422 Procedure: COLONOSCOPY DIAGNOSTIC Diagnosis: BRBPR (bright red blood per rectum) (Rectal bleeding) Scheduled Providers: Carol Winn MD; Obed Bhatt APRN.JACK SPINNER; Millicent Schmitz RN Responsible Provider: Obed Bhatt [...] May 22, 2024 TIME: 2:22 PM CSN: [id number] Normal [facility] ANES PRE-OPon 05-22-2024 ANES PRE-OP HNO ID: [id number] Author: OBED BHATT APRN.CRNA Service: Anesthesiology Author Type: Nurse Supplier Quality Engineering Manager Type: Anesthesia Preprocedure Evaluation Filed: 05/22/2024 14:23 Note Text: ANESTHESIOLOGY DAY OF SURGERY NOTE : 1990 Procedure Information Anesthesia Start Date/Time: 05/22/24 1345 Scheduled providers: Carol Winn MD; Obed Bhatt APRN.JACK SPINNER; Millicent Schmitz RN Procedure: COLONOSCOPY DIAGNOSTIC Location: [...] May 22, 2024 TIME: 2:22 PM CSN: [id number] Normal [facility] PRE-OP HNO ID: [id number] Author: OBED BHATT APRN.CRNA Service: Anesthesiology Author Type: Nurse Supplier Quality Engineering Manager Type: Anesthesia Preprocedure Evaluation Filed: 05/22/2024 14:21 [...] 48 hours of Surgery/Procedure. SIGNATURE: Obed Bhatt APRN.JACK SPINNER PATIENT NAME: Orion Harper DATE: May 22, 2024 TIME: 2:18 PM CSN: [id number] Normal [facility] C diff Tox gens Stl Ql SHEILA+p robeon 05-22-2024 C. difficile toxin genes SHEILA+probe Ql (Stl) Positive Abnormal Negative for C. difficile toxin by PCR [facility] Comment on above: Order Comment: Speci men Type: STOOL SPECIMEN Ordering Facility: [facility] Address: [address] [place] [address] Result Comment: A po sitive PCR result [...] Performed By: #### 5 4067-4, CDEIA #### [facility] CLIA [id number] [address] [place] [address] [place] CLOSTRIDIUM DIFFICILE TOXIN BY EIAon 05-22-2024 C. difficile toxin A+B IA Ql (Stl) Not detected Normal Negative for C. difficile toxin [facility] Comment on above: Order Comment: Speci men Type: STOOL SPECIMEN Ordering Facility: [facility] Address: [address] [place] [address] Result Comment: Toxi n EIA is less sensitive than cell cytotoxin and PCR assays. Clinical correlation of PCR positive/toxin EIA negative results is required to distinguish C. difficle colonization from disease. Performed By: #### 5 4067-4, CDEIA #### [facility] CLIA [id number] [address] [place] [address] [place] COLONOSCOPYon 05-22-2024 [facility] Gastrointestinal Endoscopy Patient Name: Orion Harper Procedure Date: 05/22/2024 1:40 PM Date of : 1990 Admit Type: Outpatient Age: 33 Room: [place] [address] Gender: Female Note Status: Finalized Attending MD: Carol Winn MD, [id number] Procedure: Colonoscopy Indications: Rectal bleeding, Change in [...] verified by the physician, the nurse, the lye boiler and the arcade technician in the procedure room. Mental Status [...] bowel preparation was evaluated using the BBPS ([place] Bowel Preparation Scale) with scores of: Right [...] not included)... [facility], Radiologist, - 05/22/2024 [facility] Gastroenterology Gastrointestinal Endoscopy Patient Name: Orion Harper Procedure Date: 05/22/2024 1:40 PM Date of : 1990 Admit Type: Outpatient Age: 33 Room: [facility] 2 Gender: Female Note Status: Finalized Attending MD: Carol Winn MD, [id number] Procedure: Colonoscopy Indications: Rectal bleeding, Change in [...] verified by the physician, the nurse, the lye boiler and the arcade technician in the procedure room. Mental Status [...] bowel preparation was evaluated using the BBPS ([place] Bowel Preparation Scale) with scores of: Right [...] once a da (more content not included)... [employer] COLONOSCOPYOrdered By: [facility] on 05-22-2024 [employer] Work Phone: Colonoscopyon 05-22-2024 Colonoscopy [facility] G[facility]enterology Gastrointestinal Endoscopy Patient Name: Orion Harper Procedure Date: 05/22/2024 1:40 PM Date of : 1990 Admit Type: Outpatient Age: 33 Room: [facility] 2 Gender: Female Note Status: Director International Override Attending MD: Carol Winn MD, [id number] Procedure: Colonoscopy Indications: Rectal bleeding, Change in [...] verified by the physician, the nurse, the lye boiler and the arcade technician in the procedure room. Mental Status [...] bowel preparation was evaluated using the BBPS ([place] Bowel Preparation Scale) with scores of: Right [...] previously scheduled. (more content not included)... Normal [facility] Flexible sigmoidoscopy study on 05-22-2024 [facility] Gastrointestinal Endoscopy Patient Name: Orion Harper Procedure Date: 05/22/2024 1:40 PM Date of : 1990 Admit Type: Outpatient Age: 33 Room: [facility] 2 Gender: Female Note Status: Finalized Attending MD: Carol Winn MD, [id number] Procedure: Colonoscopy Indications: Rectal bleeding, Change in [...] verified by the physician, the nurse, the lye boiler and the arcade technician in the procedure room. Mental Status [...] bowel preparation was evaluated using the BBPS ([place] Bowel Preparation Scale) with scores of: Right [...] were ph (more content not included)... [facility] Gastrointestinal pathogens i dentified SHEILA+probe Nom (Stl)on 05-22-2024 Campylobacter sp DNA SHEILA+probe Nom (Unsp spec) Not detected Normal Not Detected [facility] Comment on above: Order Comment: Speci men Type: STOOL SPECIMEN Ordering Facility: [facility] Address: [address] [place] [address] Performed By: #### 7 9390-1 #### [facility] CLIA [id number] [address] [place] [address] [place] Salmonella sp DNA SHEILA+probe Ql (Unsp spec) Not detected Normal Not Detected [facility] Comment on above: Order Comment: Rl basilio Type: STOOL SPECIMEN Ordering Facility: [facility] Address: [address] [place] [address] Performed By: #### 7 9390-1 #### [facility] CLIA [id number] [address] [place] [address] [place] Shiga toxin stx gene SHEILA+probe Nom (Unsp spec) Not detected Normal Not Detected [facility] Comment on above: Order Comment: Rl basilio Type: STOOL SPECIMEN Ordering Facility: [facility] Address: [address] [place] [address] Performed By: #### 7 9390-1 #### [facility] CLIA [id number] [address] [place] [address] [place] Shigella sp DNA SHEILA+probe Ql (Unsp spec) Not detected Normal Not Detected [facility] Comment on above: Order Comment: Speci men Type: STOOL SPECIMEN Ordering Facility: [facility] Address: [address] [place] [address] Performed By: #### 7 9390-1 #### [facility] CLIA [id number] [address] [place] [address] [place] HISTORY PHYSICALon HISTORY PHYSICAL HNO ID: [id number] Author: CAROL WINN MD Service: Gastroenterology Author [...] May 22, 2024 TIME: 1:39 PM Normal [facility] NURSING PROGon 05-22-2024 NURSING PROG HNO ID: [id number] Author: LINDSEY BUCKLEY RN Service: ? Author [...] AFFECTING LEARNING: None Electronically Signed By: Lindsey Bucklye RN In Department: AMBULATORY SURGERY Normal [facility] No Panel Informationon 05-22 Radiology Study observation (narrative) [facility] SURGICAL PATHOLOGYon 025 CASE REPORT Normal [facility] Comment on above: Order Comment: Speci men Type: STOOL SPECIMEN Ordering Facility: [facility] Address: [address] [place] [address] Result Comment: Surg ical Pathology Report Case: [id number] Authorizing Provider: Carol Winn MD Collected: 05/22/2024 02:05 PM Ordering Location: Ambulatory Surgery Received: 05/22/2024 08:39 PM Pathologist: Fe Barnes MD Specimens: A) - Colon, Right, Biopsy, r/o microscopic colitis, r/o inflammation B) - Colon, Left, Biopsy, r/o microscopic colitis, r/o inflammation Performed By: #### 5 4067-4, CDEIA #### [facility] CLIA [id number] [address] [place] [address] [place] FINAL DIAGNOSIS Normal [facility] Comment on above: Order Comment: Speci men Type: STOOL SPECIMEN Ordering Facility: [facility] Address: [address] [place] [address] Result Comment: A. C olon, right, biopsy: - Colonic mucosa with no significant pathologic change. B. Colon, left, biopsy: - Colonic mucosa with no significant pathologic change. Performed By: #### 5 4067-4, CDEIA #### [facility] CLIA [id number] [address] [place] [address] [place] [facility] FINAL PERFORMING LAB Normal [facility] Comment on above: Order Comment: Speci men Type: STOOL SPECIMEN Ordering Facility: [facility] Address: [address] [place] [address] Result Comment: Diag nostic interpretation performed at: [facility], [address] [place] [address] CLIA# [id number] Solid Propellant Processor: Alhaji Galvez MD Performed By: #### 5 4067-4, CDEIA #### [facility] CLIA [id number] [address] [place] [address] [place] GROSS DESCRIPTION Normal [facility] Comment on above: Order Comment: Speci men Type: STOOL SPECIMEN Ordering Facility: [facility] Address: [address] [place] [address] Result Comment: A. C olon, Right, Biopsy [...] 2024 10:34 PM Gross examination performed at [facility], [address] [place] [address] Performed By: #### 5 4067-4, ETHAN #### [facility] CLIA [id number] [address] [place] [id number] [place] XR Ankle - right 3 Viewson 0 05-15-2024 Imaging Result: XRAY: Three views were taken today AP/MORT/LAT Ankle: No fractures or dislocations seen no spurring noted at the lateral ankle ligament complex noted as reported on the MRI [facility] Radiology Study observation (narrative) [facility] ALL CBC WITH AUTO DIFFon BASOPHILS ABSOLUTE AUTO 0 [facility] Basophils/100 WBC (Bld) 0.4 % 0.2 - 2.0 % [facility] Eosinophils/100 WBC (Bld) 2.2 % 0.9 - 7.0 % [facility] Erythrocyte distribution width (RBC) [Ratio] 12.9 % 11.0 - 15.0 % [facility] Hematocrit (Bld) [Volume fraction] 41.2 % 36.0 - 48.0 % [facility] Hemoglobin (Bld) [Mass/Vol] 13.8 g/dL 12.0 - 16.0 g/dL [facility] IMMATURE GRANULOCYTES ABS AUTO 0.19 High [facility] Immature granulocytes/100 WBC (Bld) 1.9 % High 0.0 - 0.5 % [facility] Interpretation and review of laboratory results Abnormal [facility] LYMPHOCYTES ABSOLUTE AUTO 3 [facility] Lymphocytes/100 WBC (Bld) 30.1 % 20.5 - 60.0 % [facility] MCH (RBC) [Entitic mass] 32.7 pg 26.7 - 34.0 pg [facility] MCHC (RBC) [Mass/Vol] 33.5 g/dL 29.9 - 35.2 g/dL [facility] MCV (RBC) [Entitic vol] 97.6 fL 81.0 - 99.0 fL [facility] MONOCYTES ABSOLUTE AUTO 0.7 [facility] Monocytes/100 WBC (Bld) 6.6 % 1.7 - 12.0 % [facility] NEUTROPHILS ABSOLUTE AUTO 5.8 [facility] Neutrophils/100 WBC (Bld) 58.8 % 43.0 - 75.0 % [facility] Platelet mean volume (Bld) [Entitic vol] 10.8 fL 9.5 - 13.5 fL [facility] EO # 0.2 [facility] PLT 206 [facility] RBC 4.22 [facility] WBC 9.9 [facility] CNPNon 05-06-2024 CNPN Telephone (CARDMN) ORION HARPER ([id number]) 1990 F Date Time Provider Department 05/06/24 SOLO MORA During your visit today, we recorded the following information about you: Criss Mccrary 05/06/2024 1:41 PM Signed Echo was faxed to Anne-Marie @ [phone] AND scanned into outside ep. Patient is [...] Status:Closed by CRISS MCCRARY on 05/06/24 Normal [facility] Liver ultrasound attenuation by transient elastographyon [...] and referral to hepatology. Zehra Gray PA-C [facility] Fibroscan Fibrosis Risk <7 kPA = F0-F2 [...] Int J Clin Exp Med. 2015 Jan 15;8(10):57028-09. PMID: 31763505; PMCID: [id number]. Ruthann Bob, Juan FANTASMA, Rico M, Cosmo F, Tawnya J, Everardo O, Leyla F, Franci M, Alejandro G, Dorie A, Gianna E, Leyla L, French G, Kashmir A, [place] U, Zapata S, Franc P, Lucilao V, de Kole V, Leena M, Neo MARIE. Refining the Baveno elastography criteria for the definition of compensated advanced chronic liver disease. J Hepatol. 2020;74(5):8456-5458. doi: 10.1016/j.jhep.2020.1 1.050. Epub 2019Apr 01. PMID: 70924497. Izabel Bob, Chastity B, Martha Bob, Xiao Bob, Joon S, Nuria Roth, Trevin Roth, Trixie Kendrick. AASLD practice guidance on the clinical assessment and management of nonalcoholic fatty liver disease. Hepatology. 2022;77(5):1439-8900. doi:10.1097/HEP.87506 [id number] [facility] Radiology Study observation (narrative) [facility] Radiology Study observation (narrative) [address] 04-26-2024 Alpha 1 antitrypsin [Mass/Vol] 123 mg/dL Normal 90-200 [facility] Comment on above: Order Comment: Rl basilio Type: BLOOD SPECIMEN Ordering Facility: [facility] Address: [address] [place] [address] Performed By: #### 1 825-9, 2064-4 #### [facility] CLIA [id number] [address] [place] [address] [place] AFP SerPl-mCncon 04-26-2024 AFP [Mass/Vol] 3.01 ng/mL Normal <9.00 [facility] Comment on above: Order Comment: Rl basilio Type: BLOOD SPECIMEN Ordering Facility: [facility] Address: [address] [place] [address] Result Comment: The Alpha-Fetoprotein test was performed using the Sage Unicel DxI immunoenzymatic assay. Results obtained with different assay methods or kits cannot be used interchangeably. Performed By: #### 1 834-1 #### [facility] CLIA [id number] [address] [place] [address] [place] DENY BY IFA WITH REFLEXon Nuclear Ab Ql (S) Negative Normal Negative [facility] Comment on above: Order Comment: Rl basilio Type: BLOOD SPECIMEN Ordering Facility: [facility] Address: [address] [place] [address] Result Comment: Anti -nuclear antibody test is used as an aid in diagnosis of systemic autoimmune diseases. Where positive and clinically warranted, follow-up using disease-specific testing is recommended. Low positive titers are not uncommon with advanced age, certain chronic infections, and malignancies among others. Test methodology: Indirect fluorescence immunoassay (IFA) using HEp-2 cells. Performed By: #### A NAIFR #### [facility] CLIA [id number] [address] [place] [address] [place] CBC W Auto Differential pane l (Bld)on 04-26-2024 Basophils (Bld) [#/Vol] 0.06 10*3/uL [facility] Differential cell count method Nom (Bld) Auto [facility] Eosinophils (Bld) [#/Vol] [facility] Immature granulocytes (Bld) [#/Vol] 0.33 10*3/uL High [facility] Immature granulocytes/100 WBC (Bld) 2.7 % [facility] Lymphocytes (Bld) [#/Vol] 2.80 10*3/uL [facility] MCH (RBC) [Entitic mass] 32.0 pg 26.0 - 34.0 pg [facility] Monocytes (Bld) [#/Vol] 0.41 10*3/uL [facility] Neutrophils (Bld) [#/Vol] 8.78 10*3/uL High [facility] Nucleated RBC (Bld) [#/Vol] [facility] Nucleated RBC/100 WBC (Bld) [Ratio] 0.0 % /100 WBC [facility] Platelet mean volume (Bld) [Entitic vol] 10.8 fL 9.0 - 12.7 fL [facility] Platelets (Bld) [#/Vol] 271 10*3/uL [facility] WBC (Bld) [#/Vol] 12.39 10*3/uL [facility] Basophils (Bld) [#/Vol] 0.06 10*3/uL Normal <0.11 [facility] Comment on above: Order Comment: Speci men Type: BLOOD SPECIMEN Ordering Facility: [facility] Address: [address] [place] [address] Performed By: #### 1 2063-07 #### [facility] CLIA [id number] [address] [place] [address] [place] Basophils/100 WBC (Bld) 0.5 % Normal [facility] Comment on above: Order Comment: Speci men Type: BLOOD SPECIMEN Ordering Facility: [facility] Address: [address] [place] [address] Performed By: #### 1 822063-07 #### [facility] CLIA [id number] [address] [place] [address] [place] Differential cell count method Nom (Bld) Auto Normal [facility] Comment on above: Order Comment: Speci men Type: BLOOD SPECIMEN Ordering Facility: [facility] Address: [address] [place] [address] Performed By: #### 1 8208-30, 2063-07 #### [facility] CLIA [id number] [address] [place] [address] [place] Eosinophils (Bld) [#/Vol] 10*3/uL Normal <0.46 [facility] Comment on above: Order Comment: Speci men Type: BLOOD SPECIMEN Ordering Facility: [facility] Address: [address] [place] [address] Performed By: #### 1 8208-30, 2063-07 #### [facility] CLIA [id number] [address] [place] [address] [place] Eosinophils/100 WBC (Bld) 0.1 % Normal [facility] Comment on above: Order Comment: Speci men Type: BLOOD SPECIMEN Ordering Facility: [facility] Address: [address] [place] [address] Performed By: #### 1 8208-30, 2063-07 #### [facility] CLIA [id number] [address] [place] [address] [place] Erythrocyte distribution width (RBC) [Ratio] 12.5 % Normal 11.5-15.0 [facility] Comment on above: Order Comment: Speci men Type: BLOOD SPECIMEN Ordering Facility: [facility] Address: [address] [place] [address] Performed By: #### 1 8259, 2063-07 #### [facility] CLIA [id number] [address] [place] [address] [place] Hematocrit (Bld) [Volume fraction] 46.1 % High 36.0-46.0 [facility] Comment on above: Order Comment: Speci men Type: BLOOD SPECIMEN Ordering Facility: [facility] Address: [address] [place] [address] Performed By: #### 1 8208-30, 2063-07 #### [facility] CLIA [id number] [address] [place] [address] [place] Hemoglobin (Bld) [Mass/Vol] 15.5 g/dL Normal 11.5-15.5 [facility] Comment on above: Order Comment: Speci men Type: BLOOD SPECIMEN Ordering Facility: [facility] Address: [address] [place] [address] Performed By: #### 1 8208-30, 2063-07 #### [facility] CLIA [id number] [address] [place] [address] [place] Immature granulocytes (Bld) [#/Vol] 0.33 10*3/uL High <0.10 [facility] Comment on above: Order Comment: Speci men Type: BLOOD SPECIMEN Ordering Facility: [facility] Address: [address] [place] [address] Performed By: #### 1 , 2063-07 #### [facility] CLIA [id number] [address] [place] [address] [place] Immature granulocytes/100 WBC (Bld) 2.7 % Normal [facility] Comment on above: Order Comment: Speci men Type: BLOOD SPECIMEN Ordering Facility: [facility] Address: [address] [place] [address] Performed By: #### 1 8208-30, 2063-07 #### [facility] CLIA [id number] [address] [place] [address] [place] Lymphocytes (Bld) [#/Vol] 2.80 10*3/uL Normal 1.00-4.00 [facility] Comment on above: Order Comment: Speci men Type: BLOOD SPECIMEN Ordering Facility: [facility] Address: [address] [place] [address] Performed By: #### 1 8208-30, 2063-07 #### [facility] CLIA [id number] [address] [place] [address] [place] Lymphocytes/100 WBC (Bld) 22.6 % Normal [facility] Comment on above: Order Comment: Speci men Type: BLOOD SPECIMEN Ordering Facility: [facility] Address: [address] [place] [address] Performed By: #### 1 829, 2063-07 #### [facility] CLIA [id number] [address] [place] [address] [place] MCH (RBC) [Entitic mass] 32.0 pg Normal 26.0-34.0 [facility] Comment on above: Order Comment: Speci men Type: BLOOD SPECIMEN Ordering Facility: [facility] Address: [address] [place] [address] Performed By: #### 1 , 2063-07 #### [facility] CLIA [id number] [address] [place] [address] [place] MCHC (RBC) [Mass/Vol] 33.6 g/dL Normal 30.5-36.0 [facility] Comment on above: Order Comment: Speci men Type: BLOOD SPECIMEN Ordering Facility: [facility] Address: [address] [place] [address] Performed By: #### 1 8208-30, 2063-07 #### [facility] CLIA [id number] [address] [place] [address] [place] MCV (RBC) [Entitic vol] 95.1 fL Normal 80.0-100.0 [facility] Comment on above: Order Comment: Speci men Type: BLOOD SPECIMEN Ordering Facility: [facility] Address: [address] [place] [address] Performed By: #### 1 829, 2063-07 #### [facility] CLIA [id number] [address] [place] [address] [place] Monocytes (Bld) [#/Vol] 0.41 10*3/uL Normal <0.87 [facility] Comment on above: Order Comment: Speci men Type: BLOOD SPECIMEN Ordering Facility: [facility] Address: [address] [place] [address] Performed By: #### 1 829, 2063-07 #### [facility] CLIA [id number] [address] [place] [address] [place] Monocytes/100 WBC (Bld) 3.3 % Normal [facility] Comment on above: Order Comment: Speci men Type: BLOOD SPECIMEN Ordering Facility: [facility] Address: [address] [place] [address] Performed By: #### 1 8208-30, 2063-07 #### [facility] CLIA [id number] [address] [place] [address] [place] Neutrophils (Bld) [#/Vol] 8.78 10*3/uL High 1.45-7.50 [facility] Comment on above: Order Comment: Speci men Type: BLOOD SPECIMEN Ordering Facility: [facility] Address: [address] [place] [address] Performed By: #### 1 8208-30, 2063-07 #### [facility] CLIA [id number] [address] [place] [address] [place] Neutrophils/100 WBC (Bld) 70.8 % Normal [facility] Comment on above: Order Comment: Speci men Type: BLOOD SPECIMEN Ordering Facility: [facility] Address: [address] [place] [address] Performed By: #### 1 8259, 2063-07 #### [facility] CLIA [id number] [address] [place] [address] [place] Nucleated RBC (Bld) [#/Vol] 10*3/uL Normal <0.01 [facility] Comment on above: Order Comment: Speci men Type: BLOOD SPECIMEN Ordering Facility: [facility] Address: [address] [place] [address] Performed By: #### 1 829, 2063-07 #### [facility] CLIA [id number] [address] [place] [address] [place] Nucleated RBC/100 WBC (Bld) [Ratio] 0.0 /100 WBC Normal [facility] Comment on above: Order Comment: Speci men Type: BLOOD SPECIMEN Ordering Facility: [facility] Address: [address] [place] [address] Performed By: #### 1 8208-30, 2063-07 #### [facility] CLIA [id number] [address] [place] [address] [place] Platelet mean volume (Bld) [Entitic vol] 10.8 fL Normal 9.0-12.7 [facility] Comment on above: Order Comment: Speci men Type: BLOOD SPECIMEN Ordering Facility: [facility] Address: [address] [place] [address] Performed By: #### 1 8208-30, 2063-07 #### [facility] CLIA [id number] [address] [place] [address] [place] Platelets (Bld) [#/Vol] 271 10*3/uL Normal 150-400 [facility] Comment on above: Order Comment: Speci men Type: BLOOD SPECIMEN Ordering Facility: [facility] Address: [address] [place] [address] Performed By: #### 1 8208-30, 2063-07 #### [facility] CLIA [id number] [address] [place] [address] [place] RBC (Bld) [#/Vol] 4.85 10*6/uL Normal 3.90-5.20 [facility] Comment on above: Order Comment: Speci men Type: BLOOD SPECIMEN Ordering Facility: [facility] Address: [address] [place] [address] Performed By: #### 1 8208-30, 2063-07 #### [facility] CLIA [id number] [address] [place] [address] [place] WBC (Bld) [#/Vol] 12.39 10*3/uL High 3.70-11.00 [facility] Comment on above: Order Comment: Speci men Type: BLOOD SPECIMEN Ordering Facility: [facility] Address: [address] [place] [address] Performed By: #### 1 825-9, 4 #### [facility] CLIA [id number] [address] [place] [address] [place] [facility] CBC W AUTO DIFF BLDon [facility] BASOPHILS # BLD AUTO 0.06 [facility] DIFFERENTIAL METHOD BLD Auto [facility] EOSINOPHIL # BLD AUTO <0.03 [facility] LYMPHOCYTES # BLD AUTO 2.8 [facility] MONOCYTES # BLD AUTO 0.41 [facility] NEUTROPHILS # BLD AUTO 8.78 [facility] NRBC # BLD AUTO <0.01 [facility] NRBC/100 WBC BLD-RTO 0 /100 WBC [facility] PLATELET # BLD AUTO 271 [facility] PMV BLD AUTO 10.8 fL 9.0 - 12.7 fL [facility] WBC # BLD AUTO 12.39 [facility] IMM GRANULOCYTES # BLD AUTO 0.33 High [facility] IMM GRANULOCYTES/LEUK NFR BLD AUTO 2.7 % [facility] MCH (RBC) [Entitic mass] 32 pg 26.0 - 34.0 pg [facility] Specimen Type: BLOOD SPECIMEN Ordering Facility: [facility] Address: [address] [place] [address] Original Ordering Provider: ILIANA Alexandra 04-26-2024 ADY Office Visit (GASTNO ) ORION HARPER ([id number]) 1990 F Date Time Provider Department 04/26/24 3:05 PM ILIANA MERCADO During your visit today, we recorded the following information about you: Pulse Blood pressure Weight 84/minute 133/92 84 kg lIiana Mercado PA-C 04/26/2024 2:26 PM Addendum Thank [...] do not hesitate to send me a [employer] message or call. FARNAZ Mohr Lauren, PA-C [...] she saw Dr. Hylton in 2021 in [facility]. 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 Normal [facility] Office Visit (ORMDNA ) MEREDITHORION Mcclellan ([id number]) 1990 F Date Time Provider Department 04/26/24 [...] and plan (more content not included)... Normal [facility] Ceruloplasmin SerPl-mCncon 0 04-26-2024 Ceruloplasmin [Mass/Vol] 27 mg/dL Normal 16-45 [facility] Comment on above: Order Comment: Speci men Type: BLOOD SPECIMEN Ordering Facility: [facility] Address: [address] [place] [address] Performed By: #### 1 825-9, 44 #### [facility] CLIA [id number] [address] [place], [place] [address] [place] [address] [place] Comprehensive metabolic 2000 panelon 04-26-2024 Albumin [Mass/Vol] 4.7 g/dL 3.9 - 4.9 g/dL [facility] ALP [Catalytic activity/Vol] 144 U/L High 34 - 123 U/L [facility] ALT [Catalytic activity/Vol] 192 U/L High 7 - 38 U/L [facility] Anion gap [Moles/Vol] 13 mmol/L 8 - 15 mmol/L [facility] AST [Catalytic activity/Vol] 99 U/L High 13 - 35 U/L [facility] Bilirubin [Mass/Vol] 0.3 mg/dL 0.2 - 1 .3 mg/dL [facility] Calcium [Mass/Vol] 9.2 mg/dL 8.5 - 10. 2 mg/dL [facility] Chloride [Moles/Vol] 100 mmol/L 98 - 10 7 mmol/L [facility] CO2 [Moles/Vol] 25 mmol/L 22 - 30 mmol/L [facility] Creatinine [Mass/Vol] 0.58 mg/dL 0.58 - 0.96 mg/dL [facility] GFR/1.73 sq M.predicted among non-blacks MDRD (S/P/Bld) [Vol rate/Area] 121 mL/min/{1.73_m2} - PINF [facility] Comment on above: Estimated Glomerular Filtration [...] [Mass/Vol] 95 mg/dL 74 - 99 mg/dL [facility] Comment on above: [employer] [...] Interpretation and review of laboratory results Abnormal [facility] Potassium [Moles/Vol] 4.0 mmol/L 3.7 - 5.1 mmol/L [facility] Protein [Mass/Vol] 8.0 g/dL 6.3 - 8.0 g/dL [facility] Sodium [Moles/Vol] 138 mmol/L 136 - 144 mmol/L [facility] Urea nitrogen [Mass/Vol] 12 mg/dL 7 - 21 mg/dL [facility] Albumin [Mass/Vol] 4.7 g/dL Normal 3.9-4.9 [facility] Comment on above: Order Comment: Speci men Type: BLOOD SPECIMEN Ordering Facility: [facility] Address: [address] [place] [address] Performed By: #### 1 8208-30, 2063-07 #### [facility] CLIA [id number] [address] [place] [address] [place] ALP [Catalytic activity/Vol] 144 U/L High 34-123 [facility] Comment on above: Order Comment: Speci men Type: BLOOD SPECIMEN Ordering Facility: [facility] Address: [address] [place] [address] Performed By: #### 1 8208-30, 2063-07 #### [facility] CLIA [id number] [address] [place] [address] [place] ALT [Catalytic activity/Vol] 192 U/L High 7-38 [facility] Comment on above: Order Comment: Speci men Type: BLOOD SPECIMEN Ordering Facility: [facility] Address: [address] [place] [address] Performed By: #### 1 829, 2063-07 #### [facility] CLIA [id number] [address] [place] [address] [place] Anion gap [Moles/Vol] 13 mmol/L Normal 8-15 [facility] Comment on above: Order Comment: Speci men Type: BLOOD SPECIMEN Ordering Facility: [facility] Address: [address] [place] [address] Performed By: #### 1 8259, 2063-07 #### [facility] CLIA [id number] [address] [place] [address] [place] AST [Catalytic activity/Vol] 99 U/L High 13-35 [facility] Comment on above: Order Comment: Speci men Type: BLOOD SPECIMEN Ordering Facility: [facility] Address: [address] [place] [address] Performed By: #### 1 8208-30, 2063-07 #### [facility] CLIA [id number] [address] [place] [address] [place] Bilirubin [Mass/Vol] 0.3 mg/dL Normal 0.2-1.3 [facility] Comment on above: Order Comment: Speci men Type: BLOOD SPECIMEN Ordering Facility: [facility] Address: [address] [place] [address] Performed By: #### 1 8208-30, 2063-07 #### [facility] CLIA [id number] [address] [place] [address] [place] Calcium [Mass/Vol] 9.2 mg/dL Normal 8.5-10.2 [facility] Comment on above: Order Comment: Speci men Type: BLOOD SPECIMEN Ordering Facility: [facility] Address: [address] [place] [address] Performed By: #### 1 8208-30, 2063-07 #### [facility] CLIA [id number] [address] [place] [address] [place] Chloride [Moles/Vol] 100 mmol/L Normal 98-107 [facility] Comment on above: Order Comment: Speci men Type: BLOOD SPECIMEN Ordering Facility: [facility] Address: [address] [place] [address] Performed By: #### 1 8259, 2063-07 #### [facility] CLIA [id number] [address] [place] [address] [place] CO2 [Moles/Vol] 25 mmol/L Normal 22-30 [facility] Comment on above: Order Comment: Speci men Type: BLOOD SPECIMEN Ordering Facility: [facility] Address: [address] [place] [address] Performed By: #### 1 8259, 2063-07 #### [facility] CLIA [id number] [address] [place] [address] [place] Creatinine [Mass/Vol] 0.58 mg/dL Normal 0.58-0.96 [facility] Comment on above: Order Comment: Speci men Type: BLOOD SPECIMEN Ordering Facility: [facility] Address: [address] [place] [address] Performed By: #### 1 8208-30, 2063-07 #### [facility] [place] [id number] [address] [place] [address] [place] Creatinine and Glomerular filtration rate.predicted panel (S/P/Bld) 121 mL/min/1.73m??? Normal >=60 [facility] Comment on above: Order Comment: Dionicioi chetna Type: BLOOD SPECIMEN Ordering Facility: [facility] Address: [address] [place] [address] Result Comment: Chely mated Glomerular Filtration Rate [...] Performed By: #### 1 8259, 2063-07 #### [facility] CLIA [id number] [address] [place] [address] [place] Glucose [Mass/Vol] 95 mg/dL Normal 74-99 [facility] Comment on above: Order Comment: Speci men Type: BLOOD SPECIMEN Ordering Facility: [facility] Address: [address] [place], [place] [address] Result Comment: The [employer] (ADA) [...] Performed By: #### 1 8208-30, 2063-07 #### [facility] CLIA [id number] [address] [place] [address] [place] Potassium [Moles/Vol] 4.0 mmol/L Normal 3.7-5.1 [facility] Comment on above: Order Comment: Rl basilio Type: BLOOD SPECIMEN Ordering Facility: [facility] Address: [address] [place], [place] [address] Performed By: #### 1 8208-30, 2063-07 #### [facility] CLIA [id number] [address] [place] [address] [place] Protein [Mass/Vol] 8.0 g/dL Normal 6.3-8.0 [facility] Comment on above: Order Comment: Dionicioi men Type: BLOOD SPECIMEN Ordering Facility: [facility] Address: [address] [place], [place] [address] Performed By: #### 1 , 2063-07 #### [facility] CLIA [id number] [address] [place] [address] [place] Sodium [Moles/Vol] 138 mmol/L Normal 136-144 [facility] Comment on above: Order Comment: Speci men Type: BLOOD SPECIMEN Ordering Facility: [facility] Address: [address] [place] [address] Performed By: #### 1 825-9, 2063-07 #### [facility] CLIA [id number] [address] [place] [address] [place] Urea nitrogen [Mass/Vol] 12 mg/dL Normal 7-21 [facility] Comment on above: Order Comment: Speci men Type: BLOOD SPECIMEN Ordering Facility: [facility] Address: [address] [place] [address] Performed By: #### 1 825-9, 2063-07 #### [facility] CLIA [id number] [address] [place] [address] [place] FERRITINon 04-26-2024 Ferritin [Mass/Vol] 420.9 ng/mL High 14.7 - 2 05.1 ng/mL [facility] Ferritin SerPl-mCncon 2024 Ferritin [Mass/Vol] 420.9 ng/mL High 14.7-205.1 [facility] Comment on above: Order Comment: Speci men Type: BLOOD SPECIMEN Ordering Facility: [facility] Address: [address] [place] [address] Performed By: #### 1 8259, 2063-07 #### [facility] CLIA [id number] [address] [place] [address] [place] Ferritin [Mass/Vol]on 2024 Interpretation and review of laboratory results Abnormal [facility] HAV IgM Ser Qlon 04-26-2024 HAV IgM Ql (S) Negative Normal Negative [facility] Comment on above: Order Comment: Speci men Type: BLOOD SPECIMEN Ordering Facility: [facility] Address: [address] [place] [address] Result Comment: No e vidence of recent infection with Hepatitis A virus. Performed By: #### 3 1204-1, 96102-2, 5195-3 #### [facility] CLIA [id number] [address] [place] [address] [place] HBV core IgM Ser Qlon 2024 HBV core IgM Ql (S) Negative Normal Negative [facility] Comment on above: Order Comment: Speci chetna Type: BLOOD SPECIMEN Ordering Facility: [facility] Address: [address] [place] [address] Result Comment: No e vidence of recent infection with Hepatitis B virus. Should recent infection be suspected, repeat testing may be considered 3-4 weeks after this draw. Performed By: #### 3 1204-1, 60725-3, 5195-3 #### [facility] CLIA [id number] [address] [place] [address] [place] HBV surface Ag Ser Qlon HBV surface Ag Ql (S) Negative Normal Negative [facility] Comment on above: Order Comment: Specmaribel basilio Type: BLOOD SPECIMEN Ordering Facility: [facility] Address: [address] [place] [address] Performed By: #### 3 1204-1, 49837-1, 5195-3 #### [facility] CLIA [id number] [address] [place] [address] [place] HCV Ab Ser Qlon 04-26-2024 HCV Ab Ql (S) Negative Normal [facility] Comment on above: Order Comment: Specmaribel basilio Type: BLOOD SPECIMEN Ordering Facility: [facility] Address: [address] [place] [address] Result Comment: The result suggests no evidence of active infection with Hepatitis C virus. Should recent infection be suspected, repeat testing may be considered 4-6 weeks after this draw. Performed By: #### 1 6128-1 #### [facility] CLIA [id number] [address] [place] [address] [place] Iron and Iron binding capaci ty panelon 04-26-2024 Interpretation and review of laboratory results Normal [facility] Iron [Mass/Vol] 105 ug/dL 41 - 186 ug/dL [facility] Iron binding capacity [Mass/Vol] 340 ug/dL 232 - 386 ug/dL [facility] Iron/TIBC [Molar ratio] 30.9 % 15.0 - 57.0 % [facility] Iron [Mass/Vol] 105 ug/dL Normal 41-186 [facility] ital Comment on above: Order Comment: Speci men Type: BLOOD SPECIMEN Ordering Facility: [facility] Address: [address] [place] [address] Performed By: #### 1 825-9, 2063-07 #### [facility] CLIA [id number] [address] [place] [address] [place] Iron binding capacity [Mass/Vol] 340 ug/dL Normal 232-386 [facility] Comment on above: Order Comment: Speci men Type: BLOOD SPECIMEN Ordering Facility: [facility] Address: [address] [place] [address] Performed By: #### 1 825-9, 2063-07 #### [facility] CLIA [id number] [address] [place] [address] [place] Iron/TIBC [Molar ratio] 30.9 % Normal 15.0-57.0 [facility] Comment on above: Order Comment: Dionicioi men Type: BLOOD SPECIMEN Ordering Facility: [facility] Address: [address] [place] [address] Performed By: #### 1 825-9, 2063-07 #### [facility] CLIA [id number] [address] [place] [address] [place] Laboratory - Hematology and Cell countson 04-26-2024 Basophils/100 WBC (Bld) 0.5 % [facility] Eosinophils/100 WBC (Bld) 0.1 % [facility] Erythrocyte distribution width (RBC) [Ratio] 12.5 % 11.5 - 15.0 % [facility] Hematocrit (Bld) [Volume fraction] 46.1 % High 36.0 - 46.0 % [facility] Hemoglobin (Bld) [Mass/Vol] 15.5 g/dL 11.5 - 15.5 g/dL [facility] Lymphocytes/100 WBC (Bld) 22.6 % [facility] MCHC (RBC) [Mass/Vol] 33.6 g/dL 30.5 - 36.0 g/dL [facility] MCV (RBC) [Entitic vol] 95.1 fL 80.0 - 100.0 fL [facility] Monocytes/100 WBC (Bld) 3.3 % [facility] Neutrophils/100 WBC (Bld) 70.8 % [facility] RBC (Bld) [#/Vol] 4.85 10*6/uL 3.90 - 5.2 0 m/uL [facility] Mitochondria Ab IF Ql (S)on 04-26-2024 Mitochondria M2 Ab IA Qn (S) 2.8 Units Normal <=20.0 [facility] Comment on above: Order Comment: Rl basilio Type: BLOOD SPECIMEN Ordering Facility: [facility] Address: [address] [place] [address] Performed By: #### 1 825-9, 2063-07 #### [facility] CLIA [id number] [address] [place] [address] [place] Mitochondria M2 Ab Ql (S) Negative Normal Negative [facility] Comment on above: Order Comment: Rl basilio Type: BLOOD SPECIMEN Ordering Facility: [facility] Address: [address] [place] [address] Result Comment: Anti -mitochondrial antibody test is used as an aid in diagnosis of primary biliary cholangitis. Clinical correlation is required. Performed By: #### 1 825-9, 2063-07 #### [facility] CLIA [id number] [address] [place] [address] [place] No Panel Informationon 04-26 [facility] Interpretation and review of laboratory results Abnormal [facility] PT panel Coag (PPP)on 2024 INR Coag (PPP) [Relative time] 0.9 {INR} 0.9 - 1.3 [facility] Comment on above: Vitamin K Antagonist [...] Chest 2012, 141:7S-47S Lit SALVADOR et óscar. [facility] 2017, 70: 252-289 Interpretation and review of laboratory results Normal [facility] PT Coag (PPP) [Time] 10.6 s [facility] INR Coag (PPP) [Relative time] 0.9 {INR} Normal 0.9-1.3 [facility] Comment on above: Order Comment: Speci men Type: BLOOD SPECIMEN Ordering Facility: [facility] Address: [address] [place] [address] Result Comment: Maya min K Antagonist (VKA) [...] Chest 2012, 141:7S-47S Lit SALVADOR et al. [facility] 2017, 70: 252-289 Performed By: #### 3 4528-0 #### [facility] CLIA [id number] [place] [address] [place] PT Coag (PPP) [Time] 10.6 s Normal 9.7-13.0 [facility] Comment on above: Order Comment: Speci chetna Type: BLOOD SPECIMEN Ordering Facility: [facility] Address: [address] [place] [address] Performed By: #### 3 4528-0 #### [facility] CLIA [id number] [facility] [address] Smooth muscle Ab Ql (S)on ACTIN SMOOTH MUSCLE IGG QUALITATIVE Negative Normal Negative [facility] Comment on above: Order Comment: Speci men Type: BLOOD SPECIMEN Ordering Facility: [facility] Address: [address] [place] [address] Performed By: #### 1 825-9, 2063-07 #### [facility] CLIA [id number] [address] [place] [address] OF [place] ACTIN SMOOTH MUSCLE IGG QUANTITATIVE 5 Units Normal <20 [facility] Comment on above: Order Comment: Speci men Type: BLOOD SPECIMEN Ordering Facility: [facility] Address: [address] [place] [address] Performed By: #### 1 825-9, 2063-07 #### [facility] CLIA [id number] [address] [place] [address] OF [place] ECHOon 04-09-2024 Echocardiography Echocardiography Report: Transthoracic Echo [facility] Date of service: 04/09/2024 3:28:57 [...] * * Final * * * CC [employer] [facility] : [id number] [facility] [place]24 [facility] Telephone (CARDMN) ORION HARPER ([id number]) 1990 F Date Time Provider Department 04/05/24 SOLO MORA During your visit today, we recorded the following information about you: Criss Mccrary 04/05/2024 1:02 PM Signed Outside ep I have a copy @ my desk Criss Velez 04/09/2024 11:49 AM Signed April 09, 2024 Patient Contact Number: [phone] Patient last seen within the last year: Yes 12/15 Reason For Call: Test Results 12/2023 Physician: Dr. Mora Patient was informed that non-urgent calls may be returned within the next three business days. Yes Joy Dahl RN 04/09/2024 2:14 PM Signed Cardiac clearance and office noted faxed to [facility]. In regards to Zio [...] Medical Records [3576] Cmt: Cardio Clearance [facility] Results [95] Cmt: Zio [...] Status:Closed by CRISS MCCRARY on 04/05/24 Normal [facility] HEMOGLOBIN A1con 04-04-2024 HEMOGLOBIN A1c 5.5 [...] Performed By: #### 4 96, 733 #### [facility] [address], [address] [place] [address] Communication Engineer: Tim Dotson MD POTASSIUMon 04-04-2024 Potassium [Moles/Vol] 3.7 mmol/L Normal 3.5-5.[address] [facility] Comment on above: Order Comment: FASTI NG:YES FASTING: YES Performed By: #### 4 96, 733 #### [facility] [address] [place] [address], [address] [place] [address] Communication Engineer: Tim Dotson MD [facility] 04-02-2024 [facility] ORION HARPER ([id number]) 1990 F Date Time Provider Department 04/02/24 SOLO MORA CARDMN During your visit today, we recorded the following information about you: Criss Mccrary 04/02/2024 3:53 PM Signed This 'Ankle Surgery Clearance' was faxed over to Dr. Giovani Hagen (PCP) @ [phone] for signing. I spoke with the patient. [...] Received Outside Medical Records [3576] Cmt: [facility] Prescriptions as of 04/02/2024 - amphetamine-dextroamp hetamine [...] Status:Closed by CRISS MCCRARY on 04/02/24 Normal [facility] IGP,APTIMA HPV,AGE GDLNon AGE GDLN ACOG TESTING Note . [facility] Comment on above: TESTS RESULT FLAG UN ITS REF RANGE LAB Clinician Provided Cytology Information Source.............Vagina No. of containers..01 ThinPrep Vial Age Algo ACOG Starla... FLAG LEGEND: L-Low Normal,H-High Normal,LL-Alert Low,HH-Alert High <-Panic Low,>-Panic High,A-Abnormal,AA-Critical Abnormal Performed at: 01 =[address] [address] Zoraida Hawkins MD, HPV APTIMA Negative Negative [facility] Comment on above: This nucleic acid am plification test detects fourteen high- risk HPV types (16,18,31,33,35,39,45,51,52,56,58,59,66,68) without differentiation. Performed at: =[address] [id number] Marketing Analytics Analyst: Zoraida Hawkins MD, Phone: [phone] Performed at: [address] [id number] Marketing Analytics Analyst: Zoraida Hawkins MD, Phone: [phone] IGP, APTIMA HPV, RFX 16/18,45 Note . [facility] Comment on above: TESTS RESULT FLAG UN ITS REF RANGE LAB DIAGNOSIS: 02 NEGATIVE FOR INTRAEPITHELIAL LESION OR MALIGNANCY. Specimen adequacy: 02 Satisfactory for evaluation. Performed by: 02 Zehra Brush, Senior Controls Technician (ASCP) . 02 Note: Note 02 The [...] Low,>-Panic High,A-Abnormal,AA-Critical Abnormal Performed at: [address] [facility] [address] [place] [address] Zoraida Hawkins MD, [facility] CBC WITH AUTO DIFFon BASOPHILS ABSOLUTE AUTO 0.0 [facility] Basophils/100 WBC (Bld) 0.4 % 0.2 - 2.0 % [facility] Eosinophils/100 WBC (Bld) 2.8 % 0.9 - 7.0 % [facility] Erythrocyte distribution width (RBC) [Ratio] 12.4 % 11.0 - 15.0 % [facility] Hematocrit (Bld) [Volume fraction] 41.9 % 36.0 - 48.0 % [facility] Hemoglobin (Bld) [Mass/Vol] 14.2 g/dL 12.0 - 16.0 g/dL [facility] IMMATURE GRANULOCYTES ABS AUTO 0.03 [facility] Immature granulocytes/100 WBC (Bld) 0.4 % 0.0 - 0.5 % [facility] LYMPHOCYTES ABSOLUTE AUTO 2.8 [facility] Lymphocytes/100 WBC (Bld) 35.6 % 20.5 - 60.0 % [facility] MCH (RBC) [Entitic mass] 32.1 pg 26.7 - 34.0 pg [facility] MCHC (RBC) [Mass/Vol] 33.9 g/dL 29.9 - 35.2 g/dL [facility] MCV (RBC) [Entitic vol] 94.8 fL 81.0 - 99.0 fL [facility] MONOCYTES ABSOLUTE AUTO 0.5 [facility] Monocytes/100 WBC (Bld) 6.0 % 1.7 - 12.0 % [facility] NEUTROPHILS ABSOLUTE AUTO 4.3 [facility] Neutrophils/100 WBC (Bld) 54.8 % 43.0 - 75.0 % [facility] Platelet mean volume (Bld) [Entitic vol] 10.4 fL 9.5 - 13.5 fL [facility] TBH EO # 0.2 [facility] PLT 265 [facility] RBC 4.42 [facility] TB WBC 7.8 [facility] Extra Lavender Tubeon 2022 Extra Lavender Tube Normal [facility] Comment on above: Performed By: #### X LAV, LIVP, LIP #### [facility] [address] [place] [address] Marketing Analytics Analyst: Ronald Pearce MD Lipaseon 03-24-2023 Lipase [Catalytic activity/Vol] 260 U/L High 13-[address] [facility] Comment on above: Performed By: #### X LAV, LIVP, LIP #### [facility] [address] [place] [address] Marketing Analytics Analyst: Ronald Pearce MD Liver Profileon 03-24-2023 Albumin [Mass/Vol] 3.5 g/dL Normal 3.5-5.[address] [facility] Comment on above: Performed By: #### X LAV, LIVP, LIP ####[facility] [address], [place] [phone] Director: Ronald Pearce MD Alkaline Phos 321 U/L High 35-104 [facility] Comment on above: Performed By: #### X LAV, LIVP, LIP ####[facility] [address] [place] [address] Lab Director: Ronald Pearce MD ALT [Catalytic activity/Vol] 137 U/L High 5-[address] [facility] Comment on above: Performed By: #### X LAV, LIVP, LIP ####[facility] [address] [place] [address] Lab Director: Ronald Pearce MD AST [Catalytic activity/Vol] 60 U/L High <[address] [facility] Comment on above: Performed By: #### X LAV, LIVP, LIP ####[facility] [address] [place] [address] Lab Director: Ronald Pearce MD Bilirubin [Mass/Vol] 1.0 mg/dL Normal 0.3-1.2 [facility] Comment on above: Performed By: #### X LAV, LIVP, LIP ####[facility] [address] [place] [address] Lab Director: Ronald Pearce MD Bilirubin, Indirect 0.4 mg/dL Normal 0.0-1.[address] [facility] Comment on above: Performed By: #### X LAV, LIVP, LIP ####[facility] [address] [place] [address] Lab Director: Ronald Pearce MD Bilirubin.indirect [Mass/Vol] 0.6 mg/dL High <0.[address] [facility] Comment on above: Performed By: #### X LAV, LIVP, LIP ####[facility] [address] [place] [address].[place] [address] Lab Director: Ronald Pearce MD Protein [Mass/Vol] 5.7 g/dL Low 6.4-8.[address] [facility] Comment on above: Performed By: #### X LAV, LIVP, LIP ####[facility] [address] [facility], [place] [phone] Director: Ronald Pearce MD Extra Lavender Tubeon 2022 Extra Lavender Tube Normal [facility] Comment on above: Performed By: #### L IVP, XLAV ####[facility] [address] [place] [address] lab Director: Ronald Pearce MD FL CHOLANGIOGRAM [...] MD 03/23/23 Final result Normal [facility] Liver Profileon 03-23-2023 Albumin [Mass/Vol] 3.5 g/dL Normal 3.5-5.[address] [facility] Comment on above: Performed By: #### L IVP, XLAV ####[facility] [address] [facility] [address] Lab Director: Ronald Pearce MD Alkaline Phos 293 U/L High 35-104 [facility] Comment on above: Performed By: #### L IVP, XLAV ####[facility] [address] [place] [address] Lab Director: Ronald Pearce MD ALT [Catalytic activity/Vol] 111 U/L High 5-[address] [facility] Comment on above: Performed By: #### L IVP, XLAV ####[facility] [address] [place] [address] Lab Director: Ronald Pearce MD AST [Catalytic activity/Vol] 43 U/L High <[address] [facility] Comment on above: Performed By: #### L IVP, XLAV ####[facility] [address], [place] [phone] Director: Ronald Pearce MD Bilirubin [Mass/Vol] 2.6 mg/dL High 0.3-1.2 [facility] Comment on above: Performed By: #### L IVP, XLAV ####[facility] [address], [place] [phone] Director: Ronald Pearce MD Bilirubin, Indirect 0.8 mg/dL Normal 0.0-1.[address] [facility] Comment on above: Performed By: #### L IVP, XLAV ####[facility] [address], [place] [phone] Director: Ronald Pearce MD Bilirubin.indirect [Mass/Vol] 1.8 mg/dL High <0.[address] [facility] Comment on above: Performed By: #### L IVP, XLAV ####[facility] [address], [place] [phone] Director: Ronald Pearce MD Protein [Mass/Vol] 5.7 g/dL Low 6.4-8.[address] [facility] Comment on above: Performed By: #### L IVP, XLAV ####[facility] [address], [place] [phone] Director: Ronald Pearce MD Surgical Pathology Reporton 03-23-2023 Surgical Pathology Report (NOTE) Path Number: [id number] -- Diagnosis -- A. GALLBLADDER AND CONTENTS, [...] lesions or periductal lymph nodes are identified. Insurance Operations Rep sections 1c. tm SM/tb1:03/24/2023 Microscopic Description Microscopic examination performed. Processing Lab: [address] [phone] Interpretation Performed at [address] [phone] SURGICAL PATHOLOGY CONSULTATION Patient Name: ORION HARPER [facility] Rec: [id number] [facility] ANATOMIC PATHOLOGY [address] [place] [phone] [facility] CBC with Diffon 03-22-2023 Abs. Basophil <0.03 Normal 0.00-0.20 [facility] Comment on above: Performed By: #### C DP, LIP, CMPX #### [facility] [address] [place] [address] Marketing Analytics Analyst: Ronald Pearce MD #### TRIG #### [facility] [employer] [address] [place] [address] Marketing Analytics Analyst: Elio Marley MD Abs.Imm.Granulocyte 0.03 k/uL Normal 0.00-0.[address] [facility] Comment on above: Performed By: #### C DP, LIP, CMPX #### [facility] [address] [place], [place] [phone] Marketing Analytics Analyst: Ronald Pearce MD #### TRIG #### [address] [address] Marketing Analytics Analyst: Elio Marley MD Abs.Neutrophil (Seg) 6.89 k/uL Normal 1.50-8.10 [facility] Comment on above: Performed By: #### C DP, LIP, CMPX #### [facility] [address] [place] [address] Marketing Analytics Analyst: Ronald Pearce MD #### TRIG #### [address] [address] Marketing Analytics Analyst: Elio Marley MD Basophils/100 WBC (Bld) 0 % Normal 0-[address] [facility] Comment on above: Performed By: #### C DP, LIP, CMPX #### [facility] [address] [place] [address] Marketing Analytics Analyst: Ronald Pearce MD #### TRIG #### [address] [address] Marketing Analytics Analyst: Elio Marley MD Eosinophils (Bld) [#/Vol] 0.07 10*3/uL Normal 0.00-0.[address] [facility] Comment on above: Performed By: #### C DP, LIP, CMPX #### [facility] [address] [place] [address] Marketing Analytics Analyst: Ronald Pearce MD #### TRIG #### [address] [address] Marketing Analytics Analyst: Elio Marley MD Eosinophils/100 WBC (Bld) 1 % Normal 1-[address] [facility] Comment on above: Performed By: #### C DP, LIP, CMPX #### [facility] [address] [place] [address] Marketing Analytics Analyst: Ronald Pearce MD #### TRIG #### [address] [address] Marketing Analytics Analyst: Elio Marley MD Erythrocyte distribution width (RBC) [Ratio] 12.2 % Normal 11.8-14.[address] [facility] Comment on above: Performed By: #### C DP, LIP, CMPX #### [facility] [address] [place] [address] Marketing Analytics Analyst: Ronald Pearce MD #### TRIG #### [address] [address] Marketing Analytics Analyst: Elio Marley MD Hematocrit (Bld) [Volume fraction] 36.9 % Normal 36.3-47.[address] [facility] Comment on above: Performed By: #### C DP, LIP, CMPX #### [facility] [address] [place] [address] Marketing Analytics Analyst: Ronald Pearce MD #### TRIG #### [address] [address] Marketing Analytics Analyst: Elio Marley MD Hemoglobin (Bld) [Mass/Vol] 12.1 g/dL Normal 11.9-15.[address] [facility] Comment on above: Performed By: #### C DP, LIP, CMPX #### [facility] [address] [place] [address] Marketing Analytics Analyst: Ronald Pearce MD #### TRIG #### [address] [address] Marketing Analytics Analyst: Elio Marley MD Immature granulocytes/100 WBC (Bld) 0 % Normal [address] [facility] Comment on above: Performed By: #### C DP, LIP, CMPX #### [facility] [address] [place] [address] Marketing Analytics Analyst: Ronald Pearce MD #### TRIG #### [address] [address] Marketing Analytics Analyst: Elio Marley MD Lymphocytes (Bld) [#/Vol] 1.62 10*3/uL Normal 1.10-3.[address] [facility] Comment on above: Performed By: #### C DP, LIP, CMPX #### [facility] [address] [place] [address] Marketing Analytics Analyst: Ronald Pearce MD #### TRIG #### [address] [address] Marketing Analytics Analyst: Elio Marley MD Lymphocytes/100 WBC (Bld) 18 % Low 24-[address] [facility] Comment on above: Performed By: #### C DP, LIP, CMPX #### [facility] [address] [place] [address] Marketing Analytics Analyst: Ronald Pearce MD #### TRIG #### [address] [address] Marketing Analytics Analyst: Elio Marley MD MCH (RBC) [Entitic mass] 32.5 pg Normal 25.2-33.[address] [facility] Comment on above: Performed By: #### C DP, LIP, CMPX #### [facility] [address] [place] [address] Marketing Analytics Analyst: Ronald Pearce MD #### TRIG #### [address] [address] Marketing Analytics Analyst: Elio Marley MD MCHC (RBC) [Mass/Vol] 32.8 g/dL Normal 28.4-34.8 [facility] Comment on above: Performed By: #### C DP, LIP, CMPX #### [facility] [address] [place] [address] Marketing Analytics Analyst: Ronald Pearce MD #### TRIG #### [address] [address] Marketing Analytics Analyst: Elio Marley MD MCV (RBC) [Entitic vol] 99.2 fL Normal 82.6-102.[address] [facility] Comment on above: Performed By: #### C DP, LIP, CMPX #### [facility] [address] [place] [address] Marketing Analytics Analyst: Ronald Pearce MD #### TRIG #### [address] [address] Marketing Analytics Analyst: Elio Marley MD Monocytes (Bld) [#/Vol] 0.57 10*3/uL Normal 0.10-1.[address] [facility] Comment on above: Performed By: #### C DP, LIP, CMPX #### [facility] [address] [place] [address] Marketing Analytics Analyst: Ronald Pearce MD #### TRIG #### [address] [address] Marketing Analytics Analyst: Elio Marley MD Monocytes/100 WBC (Bld) 6 % Normal 3-[address] [facility] Comment on above: Performed By: #### C DP, LIP, CMPX #### [facility] [address] [place] [address] Marketing Analytics Analyst: Ronald Pearce MD #### TRIG #### [address] [address] Marketing Analytics Analyst: Elio Marley MD Neutrophil (Seg) 75 % High 36-65 [facility] Comment on above: Performed By: #### C DP, LIP, CMPX #### [facility] [address] [place] [address] Marketing Analytics Analyst: Ronald Pearce MD #### TRIG #### [address] [address] Marketing Analytics Analyst: Elio Marley MD NRBC Automated 0.0 per 100 WBC Normal 0.[address] [facility] Comment on above: Performed By: #### C DP, LIP, CMPX #### [facility] [address] [place] [address] Marketing Analytics Analyst: Ronald Pearce MD #### TRIG #### [address] [address] Marketing Analytics Analyst: Elio Marley MD Platelet mean volume (Bld) [Entitic vol] 10.7 fL Normal 8.1-13.5 [facility] Comment on above: Performed By: #### C DP, LIP, CMPX #### [facility] [address] [place] [address] Marketing Analytics Analyst: Ronald Pearce MD #### TRIG #### [address] [address] Marketing Analytics Analyst: Elio Marley MD Platelets (Bld) [#/Vol] 188 10*3/uL Normal 138-[address] [facility] Comment on above: Performed By: #### C DP, LIP, CMPX #### [facility] [place] [address] Marketing Analytics Analyst: Ronald Pearce MD #### TRIG #### [address] [address] Marketing Analytics Analyst: Elio Marley MD RBC (Bld) [#/Vol] 3.72 10*6/uL Low 3.95-5.[address] [facility] Comment on above: Performed By: #### C DP, LIP, CMPX #### [facility] [address] [place] [address] Marketing Analytics Analyst: Ronald Pearce MD #### TRIG #### [address] [address] Marketing Analytics Analyst: Elio Marley MD WBC (Bld) [#/Vol] 9.2 10*3/uL Normal 3.5-11.[address] [facility] Comment on above: Performed By: #### C DP, LIP, CMPX #### [facility] [address] [place] [address] Marketing Analytics Analyst: Ronald Pearce MD #### TRIG #### [address] [address] Marketing Analytics Analyst: Elio Marley MD Comp Metabolic Pr/rfx MGon 1 05-22-2022 Albumin [Mass/Vol] 3.5 g/dL Normal 3.5-5.[address] [facility] Comment on above: Performed By: #### C DP, LIP, CMPX #### [facility] [address] [place] [address] Marketing Analytics Analyst: Ronald Pearce MD #### TRIG #### [address] [address] Marketing Analytics Analyst: Elio Marley MD Alkaline Phos 157 U/L High 35-104 [facility] Comment on above: Performed By: #### C DP, LIP, CMPX #### [facility] [address] [place] [address] Marketing Analytics Analyst: Ronald Pearce MD #### TRIG #### [address] [address] Marketing Analytics Analyst: Elio Marley MD ALT [Catalytic activity/Vol] 131 U/L High 5-[address] [facility] Comment on above: Performed By: #### C DP, LIP, CMPX #### [facility] [address] [place] [address] Marketing Analytics Analyst: Ronald Pearce MD #### TRIG #### [address] [address] Marketing Analytics Analyst: Elio Marley MD Anion gap [Moles/Vol] 11 mmol/L Normal 9-17 [facility] Comment on above: Performed By: #### C DP, LIP, CMPX #### [facility] [address] [place] [phone] Marketing Analytics Analyst: Ronald Pearce MD #### TRIG #### [address] [address] Marketing Analytics Analyst: Elio Marley MD AST [Catalytic activity/Vol] 34 U/L High <[address] [facility] Comment on above: Performed By: #### C DP, LIP, CMPX #### [facility] [address] [place] [address] Marketing Analytics Analyst: Ronald Pearce MD #### TRIG #### [address] [address] Marketing Analytics Analyst: Elio Marley MD Bilirubin [Mass/Vol] 1.9 mg/dL High 0.3-1.2 [facility] Comment on above: Performed By: #### C DP, LIP, CMPX #### [facility] [address] [place] [address] Marketing Analytics Analyst: Ronald Pearce MD #### TRIG #### [address] [address] Marketing Analytics Analyst: Elio Marley MD BUN/CRE Ratio 17 Normal 9-20 [facility] Comment on above: Performed By: #### C DP, LIP, CMPX #### [facility] [address] [place] [address] Marketing Analytics Analyst: Ronald Pearce MD #### TRIG #### [address] [address] Marketing Analytics Analyst: Elio Marley MD Calcium [Mass/Vol] 8.1 mg/dL Low 8.6-10.[address] [facility] Comment on above: Performed By: #### C DP, LIP, CMPX #### [facility] [address] [place] [address] Marketing Analytics Analyst: Ronald Pearce MD #### TRIG #### [address] [address] Marketing Analytics Analyst: Elio Marley MD Chloride [Moles/Vol] 105 mmol/L Normal 98-107 [facility] Comment on above: Performed By: #### C DP, LIP, CMPX #### [facility] [address] [place] [address] Marketing Analytics Analyst: Ronald Pearce MD #### TRIG #### [address] [address] Marketing Analytics Analyst: Elio Marley MD CO2 [Moles/Vol] 21 mmol/L Normal 20-[address] [facility] Comment on above: Performed By: #### C DP, LIP, CMPX #### [facility] [address] [place] [address] Marketing Analytics Analyst: Ronald Perace MD #### TRIG #### [address] [address] Marketing Analytics Analyst: Elio Marley MD Creatinine [Mass/Vol] 0.6 mg/dL Normal 0.5-0.9 [facility] Comment on above: Performed By: #### C ANIL GREWAL, CMPX #### [facility] [address] [place] [address] Marketing Analytics Analyst: Ronald Pearce MD #### TRIG #### [address] [address] Marketing Analytics Analyst: Elio Marley MD GFR/1.73 sq M.predicted among non-blacks MDRD (S/P/Bld) [Vol rate/Area] mL/min/{1.73_m2} Normal >[address] [facility] Comment on above: Result Comment: [...] By: #### C ANIL GREWAL, CMPX #### [facility] [address] [place] [address] Marketing Analytics Analyst: Ronald Pearce MD #### TRIG #### [address] [address] Marketing Analytics Analyst: Elio Marley MD Glucose [Mass/Vol] 75 mg/dL Normal 70-[address] [facility] Comment on above: Performed By: #### C DP LIP, CMPX #### [facility] [address] [place] [address] Marketing Analytics Analyst: Ronald Pearce MD #### TRIG #### [address] [address] Marketing Analytics Analyst: Elio Marley MD Potassium [Moles/Vol] 4.0 mmol/L Normal 3.7-5.3 [facility] Comment on above: Performed By: #### C DP, LIP, CMPX #### [facility] [address] [place] [address] Marketing Analytics Analyst: Ronald Pearce MD #### TRIG #### [address] [address] Marketing Analytics Analyst: Elio Marley MD Protein [Mass/Vol] 5.7 g/dL Low 6.4-8.[address] [facility] Comment on above: Performed By: #### C DP, LIP, CMPX #### [facility] [address] [place] [address] Marketing Analytics Analyst: Ronald Pearce MD #### TRIG #### [address] [address] Marketing Analytics Analyst: Elio Marley MD Sodium [Moles/Vol] 137 mmol/L Normal 135-[address] [facility] Comment on above: Performed By: #### C DP, LIP, CMPX #### [facility] [address] [place] [address] Marketing Analytics Analyst: Ronald Pearce MD #### TRIG #### [address] [address] Marketing Analytics Analyst: Elio Marley MD Urea nitrogen [Mass/Vol] 10 mg/dL Normal 6-[address] [facility] Comment on above: Performed By: #### C DP, LIP, CMPX #### [facility] [address] [place] [address] Marketing Analytics Analyst: Ronald Pearce MD #### TRIG #### [address] [address] Marketing Analytics Analyst: Elio Marley MD K (Potassium)on 03-22-2023 Potassium [Moles/Vol] 3.8 mmol/L Normal 3.7-5.3 [facility] Comment on above: Performed By: #### K #### [facility] [address] [place] [address] Marketing Analytics Analyst: Ronald Pearce MD Lipaseon 03-22-2023 Lipase [Catalytic activity/Vol] 198 U/L High 13-[address] [facility] Comment on above: Performed By: #### C DP, LIP, CMPX #### [facility] [address] [place] [address] Marketing Analytics Analyst: Ronald Pearce MD #### TRIG #### [facility] [address] [place] [address] Marketing Analytics Analyst: Elio Marley MD MRI ABDOMEN WO CONTRAST [...] MD 03/22/23 Final result Normal [facility] Triglycerideson 03-22-2023 Triglyceride [Mass/Vol] 102 mg/dL Normal 0-[address] [facility] Comment on above: Result Comment: Triglyceride Guidelines: <150 Desirable 150-199 Borderline 200-499 High >499 Very high Based on AHA Guidelines for fasting triglyceride, January 2012. Performed By: #### C DP, LIP, CMPX #### [facility] [address] [place], [place] [phone] Marketing Analytics Analyst: Ronald Pearce MD #### TRIG #### [facility] [address] [place], [place] [phone] Marketing Analytics Analyst: MD Lincoln Gordillo 03-20-2023 [facility] Telephone (FVPRAD) ORION HARPER ([id number]) 1990 F Date Time Provider Department 03/20/23 CHARLETTE CAMPUZANO FVRASHAAD During your visit today, we recorded the following information about you: Charlette Capmuzano MD 03/20/2023 6:32 PM Signed Patient is [...] Encounter Status:Closed by CHARLETTE CAMPUZANO on 03/20/23 [facility] Ferritin [Mass/volume] in Se rum or PlasmaOrdered By: Erwin Hylton on 10-26-2022 Ferritin [Mass/Vol] 106.5 ng/mL 11.0-306.8 [facility] [place] GASTRIC EMPTYING SOLIDon 09-12-2022 [facility] Stomach Views for gastric emptying solid phase W radionuclide Izabella 09-12-2022 IMPRESSION: EVIDENCE OF DELAYED RATE OF GASTRIC EMPTYING OF SOLID MEAL. ABNORMAL STUDY: 36-50% RETENTION AT 4 HOURS IS CONSISTENT WITH SEVERE GASTROPARESIS. Roll Plugger: MINAL Transcribe Date/Time: Sep 12 2022 3:02P Dictated by : LUZ MARINA VÁZQUEZ MD This examination was interpreted and the report reviewed and electronically signed by: LUZ MARINA VÁZQUEZ MD on Sep 12 2022 3:05PM [facility] * * *Final Report* * * DATE OF EXAM: Sep 12 2022 2:44PM [facility] 0017 - [place] GASTRIC EMPTYING SOLID / PROCEDURE REASON: Nausea [...] (rapid emptying is <30% retention at 1hr). [facility] Provider, Iain Staton [facility] - 09/12/2022 * * *Final Report* [...] 4 HOURS IS CONSISTENT WITH SEVERE GASTROPARESIS. Roll Plugger: MINAL Transcribe Date/Time: Sep 12 2022 3:02P Dictated by : LUZ MARINA VÁZQUEZ MD This examination was interpreted and the report reviewed and electronically signed by: LUZ MARINA VÁZQUEZ MD on Sep 12 2022 3:05PM [facility] Radiology Study observation (narrative) [facility] Stomach Views for gastric emptying solid phase W radionuclide POOrdered By: [facility]cf Provider on 09-12-2022 [facility] EGD Study observation Miguelito bender 09-02-2022 [facility] Gastrointestinal Endoscopy Patient Name: Orion Harper Procedure Date: 08/31/2022 2:51 PM Date of : 1990 Admit Type: Outpatient Age: 31 Room: [place] [address] Gender: Female Note Status: Director International Override Attending MD: Carol Winn MD Procedure: [...] verified by the physician, the nurse, the lye boiler and the arcade technician in the procedure room at 14:52 [...] the gastric (more content not included)... [employer] [facility] SURGICAL PATHOLOGYOrdered By : Padilla Jasmine on 09-01-2022 Case Report Surgical Pathology Report Case: [id number] Authorizing Provider: Carol Winn MD Collected: 08/31/2022 03:04 PM Ordering Location: Ambulatory Surgery Received: 08/31/2022 09:20 PM Pathologist: Padilla Jasmine MD Specimens: A) - SMALL INTESTINE BIOPSY, r/o celiac B) - ANTRUM (STOMACH) BIOPSY, r/o hpylori C) - STOMACH BIOPSY, gastric body r/o hpylori [facility] Work Phone: Diagnosis Comment r5mpiWFeIFJacQDsBYPi N PhpthYgFZWqfIWnE3Sjti zbBKbuVF6dFI3hlXtykYG efAHuTXZpTpNrh4cva193 jEKqw6efZHWVgfbmqSu0s ZbyC76fo3Y8JzhnR27vkP AcSBJ9CHBkKLFsiRUhDRS sSTF5VGNksDYxX2izEFMx IZ3aesevBSulDDvmSGMml ZV4APDwmHRiG8FiDGZfHJ djUPQnhjx1HbIvZy1meFX yeTcyMFxwYXJkXHBsYWlu RJTmHjLiWGobtd5qN95kk YFhVVqvrLokVCObp72em1 sdw7FwvX43KJT3KXPvkCc bkEQfNXZksCk4JFE6uBFt OExvzYcpgBA5F3y0USivx HJhZXBpdGhlbGlhbCBseW 5xmF7avGCls6tgBwPXxSF oTOYlwL5dqS2mizOnjtVf co97DADfsQojGLx7XEYiI WNpZmljOyBkaWZmZXJlbn WzOSnmF64gt8zfLOZzwQq dlkFaf856qMQtmL2ooPCr ZSBsYXRlbnQgIGNlbGlhY yZukIG0RCsaWVQkvID6iG GtheVaJBRjSECiTf9kyPy mLVNQC9PJWMYpQS2cYRzk GbAxhExxvTMuO4NsbTZcM E92MNLfhCxvTKiveaZqxA RpbmcgSGVsaWNvYmFjdGV yXGY8oR6yeEdrRA5vulga l0OaRMQfNmJhV81vxbSfY XVzXBtqhBzbv2Ric2ihC9 zej8D8CLcltv1mvDEwlJ= = [facility] Work Phone: FINAL DIAGNOSIS r6xgsYRjZQInlREgBNSa N BycvqNdRSBtpRAnV8Nyuz suIJltTZ0jIS8oiJwfmAF zlBGtHZDjMwNfv8yvr972 gWBud2awXUIPisagwZd4g QuqI04sp0D7CbdxI10moJ AkPKZ9NPThETLqsLTqGRN kMCJ2YWIlvYSoA3voOUIw SV1dhddxZPmwUPpvVNIvd NO4LWQswGAaX4HvVXLmEY wxEJKpywm0VfVhKi7pkUP yeTcyMFxwYXJkXHBsYWlu MSEwPpFsJZ8wXULyGAifU GludGVzdGluZSwgYmlvcH X0IbawsE1eSE0IvRWyaBI lzwSeq8NrfdGtFE36K06q FFA8gZLtFV0oam7ujQF4q Dkbv6RuUSFpD1ofmEQvkD KdIVHwhmQdw1yuD7k8O3G hdGNoeSBpbmNyZWFzZSBp biBpbnRyYWVwaXRoZWxpY IabtFooeUukZ4i3OAZrfX rpTBdfxG4hJZZvKGNPxL5 iZAVxRYWcujEilZ4zLADb s3VfmZgedIloKHXrTHRmj EPnKdHpuAKdRZW3qV7xlC Hsb5DnR8bmjNXzBUHtly8 abSNtBLK3vALgHJilk2Pc cDSqn4rtlQ5aKV4Wv7Uhh Ps3BFYgu1LvMKTtoXNwYg CibNNlYAX1aN0peKLtasc mhsatkHKhh53tov05kAwf MRLceFWyfdgcD6krdM3uK LdkhoOnJv7tNHG0b09hG4 vrCGJvJMmiKHTww8OcnOm cbGluZSAtSGVsaWNvYmFj kQWpKNK3aC9qrDXfq3QgS 5ubmBCdOCBcno0rhEMnUQ K9qBXhBZkhz5HujHLrq3b lzS9aJN5Fo5SivYs5XRLq v4NyNQUopOXpFsKqaNUfJ XX5kP4mqZJaltbbobwmiK Tzj02ztc57mWhtYRYaiQV oyjjfC2wrVXX9 [facility] Work Phone: Gross Description h7gubBQwNOThwBYKZPUk M CDoZR6afWkrbVy5xJovIH MwizM9tTYsOGwha8zkYCN 5e2zplfIGZyydZMTcIFlx ENUuchhgDiG9TEjgPYWtw oemIRa3JDdaZHOvvMP6MJ YjuSSgX0QsBVXrAW5jqpr 0KFY1PXuoAWDtGcH8WMPl OhEiSwhaDQb5IFXudhQ4H xt4DIKbEPRxfCJpz5B0YZ vwlhczJLPdqPPiT594WHl gm0UpcHUvZKmbyWBwPAKO LqpuQrivvVaxg4GycXAcG GlkIDUxMDAwIFxcbmggXF l3KWIrIOevmWFiKB8jwVj bHkllzLrly9UktJGkOObs SMTiPBPiGOvjJPKmDV4FV bDzECFfMFY7LSzvGfO1WD m2EOIIUcFoEuPdBcPeDFL aZxRsYGi4BRn8ZBmJCuHa PRJgMnRrQBHeGqU9YWadH yBcXHQgMiBcXGYgQXJpYW qbBUuunHDeAD0kwHijpDG pbiBBLiBTTUFMTCBJTlRF U0PVAjYbGljNZTWCBYCwg iANClxlcGljTmVzdERvYz EgDQpcbHRycGFyXGxpbjB ccmluMCANClxsdHJjaFxm lhSvMQKcI0HgkfJtXIghD FXans0zkHqtRJNdUASsfK y4nOMiWIVxeAInYLXxl9W ugFXpTYEbh6R3WQQca9O9 LTSyV3ziHIwsjZtqXmD0g yAxLjAgeCAwLjIgeCAwLj GoI34lWVVxdNYopBlnf4E irLc9oBFpFGeoLW8hTLZt ZGDhXRM8LO6xgYdgZYZNS lxlcGljTmVzdERvYzBcdj B9VCJagCUsCTZ1PE3oUPN oainxEOErBEEoDJU3DOpz wX32dGCyTHJzWTRcqMAly VxwbGFpbiANCntcKlxlcG zsi6SvfZDzNCqrFJQjNGS pFLahPJEqDD3POqBiJYLk XIQ1PZiaFhR7WKd6MVAYJ lMgIiAgMzExNDIyNzQiID d6QVu9DOxIPbLqYFMcUdD qRVK2FHY8FManEePdAHUv MiBcXGYgQXJpYWwgXFxmb PObAV9ivActxQHpzrljyo F8AIIlBPvcDEQjYZSSXBK HPHGxN6DYRBJPLIyrKwmU UFNZXHBhciANClxlcGljT mVzdERvYzEgDQpcbHRycG FyXGxpbjBccmluMCANClx naZXefMduulSkRWNrR9Zs inQuJIjoDNGgmi9zxBfuB HKzOHOyxIk2iITxJHLfgL McVILvf0ZhnEPtPFDet1O 1THVxa0X1CSZxA6jwQDxb dWvdDaZ2smOeZlEhaFDaP wRybOEjVhNzY64aCOOdiB KqvOdnv8BmvWw5eQCyMJh gYO8xEMUzQLNiPQS5PZ6j bGluZSANClxlcGljTmVzd UCfZeRyeaG1TSBayQLfCT A9RP9bPHQodnxuUSHrWJJ uDCH4MYidbJ03bJUhFBZu MTZccGFyfVxwbGFpbiANC xozQhulkOjzl0VffBYtIU lkIDUxMDAyIFxcZGIgIE9 OLrYvVNXrRIU3RDxeVeV9 NCe3EUPZFfZyJxPfHlAiX KRaTvLfXCc7SOb8LCdDNu YmQYGjLkKlGVp0FlC2ENs yNyBcXHQgMiBcXGYgQXJp XZhsOYptzTIzHG8hvRami URexvzedrH1ETRaBWnlEP UlCAFUY48YV8qtUxcZHKU ZXHBhciANClxlcGljTmVz dERvYzEgDQpcbHRycGFyX GxpbjBccmluMCANClxsdH EzcTxafoNeUQPtL6KhumE pECpeCNDizj9sdYytOBPu KFXzoQi5vIZaAWEvsFTpW BKkr3DdrNAyCJWpz4F1QC Aqf9B1AJUkB8clNDlrdLc oDvW0swDsJfmxuDYxHrYe jMMxJfZhD25hZPNtwRCvh Rxce4HuwCm2iBFwTTxjVU 7sBQVgLNZfSND8LM2stHc dWAYkAAUvnfWLOonNEQ3f eSAxMSwgMjAyMyAxOjQxI PJWXX9drZBcUG3BMXKxxp WCTbwbk3XzLNS6BP9izuQ 9jA8wIJRbwfMkmc0tGXVd bBENhIJ1NSkbdyJgZ2vbb hgpSIG2HJOmCDU7D4ehDF BKprEkWKQQaRX6TKhrhpP kYE7NRLH3UVp9MECdjmSE ClxlcGljTmVzdERvYzBcd zG1NLFtpSNyAYA2XD9sJE JwqeulYYXqEBElSUI0JSt zrB88mVUrRBBcTXGtpFSb pCmqcMYblqRBBgkywV8xB cOay0aduGn8DCKVLzpkjB JjpkuylnQ6ZQIno4sgnYn wr0OvtCEvUL5ejLigvO8f ZnMxNiANCn0= [facility] Work Phone: Performing Lab v6migRPgOSOhdXCaVsEr QWfJHAgq9yzUKBoeMRbPn EwMzNcZnRuYmpcdWMxXGR tErPaf3jyq944kNNje4wi WKHcUqX8uNTiTQDxkTHlR 001DKRiENfnj2mgm1KwHH UmhFWxk0V0SWRPnwyyhFv 7xZkbB44zt8J1RljzZ4lg HQGySMEiG2PbRB8vKHNqJ lg4DOP1QON0WEDgBLTfB1 JjIB0wOQZhkICnQDj1r1j ezOqnGALoSFZ5f8dbBXgb ccWjIC2ggu6yoHv7j8yha zEgRGVmYXVsdCBQYXJhZ3 YjjFrlWk9ccCj6sUkwEsq jLJA4Tut6OX8rhl11rxg0 oRqbAAMpkgusUcX4MXgkP YBejgykPDk8WLyuIKAwoB U0CGCmfZLzA2RzFPsjKB7 gaxt2ALB6HDwoSSRqMpO2 NDBcaGVhZGVyeTcyMFxmb 697FLS4DbNiBI6xL0Hoa5 A2uX8akRQxQGFbzEHhCnW eVBAhnb4wgNWrMUxuw9Cj UDP6xvC5kOQltJHdGGHcH F00Jrpjk9VhXhrel9EnP6 4bkAJ5HDonu0azXB9gRxQ 2pbTnDMjzt2lypE8zZnA8 JFgnRW0dQW8tZECtfX4wi mxjXHBnYnJkcmhlYWRccG wrxlBcIc7oeQgeSKJ3WLe yX9tfnX4aYhU8AJmuE3qr yT4gSWi7ZKyzwOR0XVHfk Y9zNY7hzjxnf6kyCDyvBZ mvJWUabwG5xgCiMZQvkGV xE4OleB0lVZUxRS2utvxs f9nwOIJ6KLcnJSTpPCR9M bRvTFXgq9Dasey0UkDms6 VjgPUpMFiwS65rm896OZR sbkAxT0tgwXDjzccpzIKp nklzJQvexqS2XXJyYQNmA WluXGYxXGZzMjJcbGFuZz EwMzNcaGljaFxmMVxkYmN oYEZeBGifO1flBsGxRlRo TzEYoRZzap9mgLjmUEjga VTcaDHiaCO0kF4iSTNgzi Lmmv8qAUQvvCFTrCB6YDm flfRjQ2ndwcjxWAZ7IDOn BCV3K1wcKLKCiaJrYXVqL LKzbCYuWUJVZHW4CYF9UZ ZaYKUQGGTrNQM5ZRN3YSU wOTRccGFyXHBhclxwYXJk XHBsYWluXGYwXGZzMjRcc ImicH3hFoToEaDeGbtdUL 4dBUMlM2txrLTfXEUgQBK hU3mdMaJutH1lbPjsSAyc ZjJcZnMyMlxsdHJjaCBMY FQgzqN6i4H1AKzmaJAisb xmMVxmczIyXGxhbmcxMDM jGCigH1zpUfZxKTRleAru GGohz5IpOSLcBSMwWrVmW ZnjINW5x8N3PQqcwVNkaz XUJxRTKN2xaKQmomqiHM0 ELlxwYXJ9 [facility] Work Phone: [facility] Work Phone: EGD Study observation Narrat iveon 08-31-2022 Radiology Study observation (narrative) [facility] CITRATE URINE 24HRon 023 Citric Acid, U, 24hr 472 mg/24 hr Normal 320-1240 [facility] Comment on above: Result Comment: This test was developed and its performance characteristics determined by [employer]. It has not been cleared or approved by the Food and Drug Administration. Performed By: #### A LPHPHN #### [facility] [address] [place] [address] Dr. Li Nagel Citric Acid, Urine 472 mg/L Normal Undefined [facility] Comment on above: Performed By: #### A LPHPHN #### [facility] [address] [place] [address] Dr. Li Nagel OXALATE 24HR URINEon 023 Oxalates, Urine 19 mg/L Normal Undefined [facility] Comment on above: Performed By: #### O X24HR #### [facility] [address] [place] [address] Dr. Li Nagel Oxalates, Urine 24hr 19 mg/24 hr Normal 4-31 [facility] Comment on above: Performed By: #### O X24HR #### [facility] [address] [place] [address] Dr. Li Nagel MAGNESIUM 24HR URINEon 07-09 Magnesium 24hr Urine 45.0 mg/24 hr Normal 12.0-293.0 T [facility] Comment on above: Performed By: #### I MMUN G #### [facility] [address] [place] [address] Dr. Li Nagel Magnesium UR 4.5 mg/dL Normal Not Estab. [facility] Comment on above: Performed By: #### I MMUN G #### [facility] [address] [place] [address] Dr. Li Nagel PHOSPHORUS 24HR URINEon 06-22 Phosphorus, Urine 51.4 mg/dL Normal Not Estab. [facility] Comment on above: Performed By: #### P HOS 24 #### [facility] [address] [place] [address] Dr. Li Nagel Phosphorus, Urine 24hr 514 mg/24 hr Normal 261-1078 [facility] Comment on above: Performed By: #### P HOS 24 #### [facility] [address] [place] [address] Dr. Li Nagel URIC ACID 24 HR URINEon 06-22 Uric Acid, Urine 64.0 mg/dL Normal Not Estab. [facility] Comment on above: Performed By: #### A LPHPHN #### [facility] [address] [place] [address] Dr. Li Nagel Uric Acid, Urine 24hr 640.0 mg/24 hr Normal 173.7-902. 1 [facility] Comment on above: Performed By: #### A LPHPHN #### [facility] [address] [place] [address] Dr. Li Nagel CALCIUM 24 HR URINEon 2022 CALC, 24 HR UR 155.0 mg/24 hr Normal 100.0-300.0 [facility] Comment on above: Performed By: #### I MMUN G #### [facility] [address] [place] [address] Dr. Li Nagel UR CALCIUM 15.5 mg/dL Normal 5.1-21.0 [facility] Comment on above: Performed By: #### I MMUN G #### [facility] [address] [place] [address] Dr. Li Nagel UR TOT VOL 1000 ml/24 HR Normal [facility] Comment on above: Performed By: #### I MMUN G #### [facility] [address] [place] [address] Dr. Li Nagel Performed By: #### A LPHPHN #### [facility] [address] [place] [address] Dr. Li Nagel CREA 24 HR URINEon 3 CREA, 24 HR UR 1891.80 mg/24 hr Critically high 800.00 -1,800 .00 [facility] Comment on above: Performed By: #### A LPHPHN #### [facility] [address] [place] [address] Dr. Li Nagel URINE CREAT 189.18 mg/dL Normal 20.00-300.00 [facility] Comment on above: Performed By: #### A LPHPHN #### [facility] [address] [place] [address] Dr. Li Nagel PTH INTACTon 07-08-2022 PTH, Intact 41 pg/mL Normal 15-65 [facility] Comment on above: Performed By: #### H EPACUT #### [facility] [address] [place] [address] Dr. Li Nagel SODIUM 24 HR URINEon 023 NA, 24 HR UR 149 mmol/24 hr Normal 40-220 [facility] Comment on above: Performed By: #### A LPHPHN #### [facility] [address] [place] [address] Dr. Li Nagel Sodium (U) [Moles/Vol] 149 mmol/L Critically high 30-90 [facility] Comment on above: Performed By: #### A LPHPHN #### [facility] [address] [place] [address] Dr. Li Nagel BUNon 07-06-2022 Urea nitrogen [Mass/Vol] 11.0 mg/dL Normal 7.0-18.0 [facility] Comment on above: Performed By: #### B UN, URIC, CA, K, NA, CL, CO2, CREA #### [facility] [address] [place] [address] Dr. Li Nagel CALCIUMon 07-06-2022 Calcium [Mass/Vol] 9.0 mg/dL Normal 8.5-10.1 [facility] Comment on above: Performed By: #### B UN, URIC, CA, K, NA, CL, CO2, CREA #### [facility] [address] [place] [address] Dr. Li Nagel CHLORIDEon 07-06-2022 Chloride [Moles/Vol] 107 mmol/L Normal 98-107 [facility] Comment on above: Performed By: #### I MMUN G #### [facility] [address] [place] [address] Dr. Li Nagel CO2on 07-06-2022 CO2 [Moles/Vol] 29.2 mmol/L Normal 21.0-32.0 [facility] Comment on above: Performed By: #### I MMUN G #### [facility] [address] [place] [address] Dr. Li Nagel CREATININEon 07-06-2022 Creatinine [Mass/Vol] 0.97 mg/dL Normal 0.55-1.02 [facility] Comment on above: Performed By: #### B UN, URIC, CA, K, NA, CL, CO2, CREA #### [facility] [address] [place] [address] Dr. Li Nagel EGFR-AF TUVALUAN >60 Normal >=60 [facility] Comment on above: Performed By: #### B UN, URIC, CA, K, NA, CL, CO2, CREA #### [facility] [address] [place] [address] Dr. Li Nagel EGFR-NON AF TUVALUAN >60 Normal >=60 [facility] Comment on above: Performed By: #### B UN, URIC, CA, K, NA, CL, CO2, CREA #### [facility] [address] [place] [address] Dr. Li Nagel NAon 07-06-2022 Sodium [Moles/Vol] 143 mmol/L Normal 136-[address] [facility] Comment on above: Performed By: #### I MMUN G #### [facility] [address] [place] [address] Dr. Li Nagel POTASSIUMon 07-06-2022 Potassium [Moles/Vol] 3.6 mmol/L Normal 3.5-5.1 [facility] Comment on above: Performed By: #### I MMUN G #### [facility] [address] [address] [address] Li Nagel URIC ACID SERUMon 07-06-2022 Urate [Mass/Vol] 4.7 mg/dL Normal 2.6-6.0 [facility] Comment on above: Performed By: #### B UN, URIC, CA, K, NA, CL, CO2, CREA #### [facility] [address] [address] [address] Li Nagel SURGICAL PATHOLOGYOrdered By : Karan Nieto on 07-04-2022 Case Report Surgical Pathology Report Case: [id number] Authorizing Provider: Carol Winn MD Collected: 06/30/2022 11:43 AM Ordering Location: Ambulatory Surgery Received: 06/30/2022 10:42 PM Pathologist: Karan Nieto MD Specimens: A) - DUODENUM BIOPSY, r/o celiac B) - STOMACH BIOPSY, r/o H pylori [facility] Work Phone: Diagnosis Comment g1nwmNTjDYDcwNIoSPKd N JcbzuJiBLGmdIJbI2Oncj yaZRvlVO4wAD7auOyhlRL itWOaSTGdCvAib5tjz277 jFBzq0sfVNHZcrapiSe1e CpuB65hj1O8KedwN87lwD OjBGA4CTIcREYsoGVmVJF aVRC3SZGnnXVaA3rbNKJm HQ2cqylgFVbsIWulFMGwl RL0KLWmgLVrC9JfOQTpUF gqSWYwwdz8JrCiCq7cjCT yeTcyMFxwYXJkXHBsYWlu TSMhLzEnLR2jLL0blvIft 2VkIGludHJhZXBpdGhlbG neiFXdrL6pfJ5giZRvfdv jkV6ehSrxOBSfu2OyE4Ht l2LaojoqvV13jeYnVj9xx r5blPb4zHLqDNAsYKbqFm Yvu7AsxsHyihDij2ZxY9x dyXgwjkG9yICpNSVsvXvq YyBkaXNlYXNlIGFuZCBvd XbnxaUtv46kuDIyf13wTV P7R6cnNHXcxFJucPqtANT ub9Eng8TdUOdnPcXgaSjs jrLkwM4eoYDnhD7aJJxts Riuc2NcR0SlrsNqaQxjcx gxzI3nLTP0pX5wUHpzMX4 kIHNvbWUgbWVkaWNhdGlv weIaULKnyU9lZ0JbZMTdw lLszUN5lH8mNNwywNzxED Vhyw9vfpdfxPRmr8Psh0u zE8zuXFH4mRFnJTBrlFDu XfGlI50yl9enWXBtCAImY yVumRwrpVWvrXt5MAluHK sbDDIaDF8udUMapQ== [facility] Work Phone: FINAL DIAGNOSIS g8wydQVqNWZhqNDfLLGq N MqollDpUQFwuESjL2Sosk niKVevMD0jXR4xlVpirVR vrSRyHKSkHgZxw5pql616 xNXil7ydUJBXfsfclCt7y GfzT93ea5C1NgiwT92ogW XeCUM2LYHqVAVtoLFeFVK cPZK2UKHtiWIcQ7kzNPPt PY3myzmbNMblFHceASLaz PJ0KNUseKLtF9OtPZPsKW upLWMpqlp1YkFoTw4jjZA yeTcyMFxwYXJkXHBsYWlu BPQwEbOsDD7xPPLiJOMqw S8fYWUfc2MtfRayiPPdTY 7fH18tsKswvZ02DJY3mC4 ilBZonADtb8Pon9m3uEXq h2XcDIghsynzdY84jpWiu nYetYXwE6Y1kwEcMC6cCJ iaD3JxVWLfYULugrYsPCA waXRoZWxpYWwgbHltcGhv Z3f2TWX5DLYnSVYsf84gP A07ZnogVAJmtIGsPTBbZA X6c14eI5hfMLQug2BtuRz nmOPcTS1uQ8BwhTEmLfKo pEkimKwnPP10J51mGRM9m LNyOUXdna2fiOKpOMC0iH NjLQoygEhyw0VhW3TrcqB waAgpfbvuRAPfu6YcKCPf CYNvZYS6afh4cIXsMOFiy n0= [facility] Work Phone: Gross Description a5cgoXXhCZFnlOTZQNDp M UIdMW3cuEbefIv7oXzqOW UumlC6wOAtGBhsk4ahVUE 6f9uqibOHWdwdCLPsZJeb TLLshiahJuJ5EFhmFKThv jvjOKo7RMdlJAEffPB3UH SdfMBsL3JmJORtTH4aobv 5CSU4CTioIVMfFyT0VDRb YoTkJmjfAHb6FEAbycC1N kz1PZPdMBLxeJKxd3V2FT lyywtcQTNjpBXzW727FHg hy8VljSTmGFlhyJWqXVUT ErbsUrjzmGbgh7RkkOVyP GlkIDUxMDAwIFxcbmggXF z7PSAwOPsneTNvVJ3wvNz cDqmknCvgq6VrnJZrKWvn XQWhZKOxWNhhJQVmNH1CF nWgEGG0Lxa7Lkr8YuG7OV m1ZWVVYiNtWuGhRiafCSX 7JFKaPLc2MRl0IAtGYjG4 RAIpAFpfJTCaHMS1LEf2V FxcdCAyIFxcZiBBcmlhbC AyLLOrTGbsqsC8KXPpRKr lGPNyMRFPQ8EHLmSWBJMZ I9SHKRcyHLMeJTmhFKXeS 02wy5MXo6CoEP6CYEv0oq KrbeoleG4eGXAdkwIiWHf qeDFlD2jgFqYrLHESOBPw fDAwVWOovrQnk6ReUHxps iBhcmUgbXVsdGlwbGUgcG mmH0HzRV3hYEGbrkoek67 xvWG1kSPtpXFlRClylaFo IFGvsbfsyB2sXD30NGixR S7iPFxyWU9wRPNxLgGDt1 IxbEi1RIW0Wp9lxNRuGXO vtqDsjrWiA4Hgr2P6oZRe MBlsTMCyV82qb7VRn6NhQ PJaw3xepEbhr0NezZTyIW wwQICgfTFlFGsenV6oVuN im9uukQb5RDemjtU6XOOf px3jtEcqeP2bRLt7ZJtcB KClI2ScV9VqSWbcFHN4XY AwMiBcXGRiICBPVlIgIiA kBaH9AHY1GBNmUJk9KFft J9VYLRGxUYA6SSz2EAb9M iR2SQs1TYNZPj7oHDckHa c3ZIMeCJF1OCg2VNDhYNN gMiBcXGYgQXJpYWwgXFxm tNNnTB7rhGsqqWUezlxrs jD6PFWmVHcdTOZgDUIGQ5 4RZ1igZjnJKTWNCEJcwnI NClxlcGljTmVzdERvYzEg DQpcbHRycGFyXGxpbjBcc mluMCANClxsdHJjaFxmcz IcOEIsR1ZyiiSpGNiaALO ymc4kgIhvORLtQRH9n17k dKksQ7LvWN7jLGRxnrkkf 33tjVS6qJWqmVHdFHzavv MgPMZuwykhpI5sPU3fJKo qYX5jKVxnTP4bGYVlFtLH n4DzfOm8MEK0Dy7wkSOwU CGuwnEhkuBhT1Fye1I3yI UuIFxwYXIgDQpccGFyIA0 SG0Bou2AxRQursIzbPQJd i88ltPNyXd4mkJIgQET0J ENsZXZlbGFuZCBDbGluaW HrPJr4XKPmIOCxcQihVJE 5OJ1dIOFtBXRwhBTnNYfx F7inIKKhQJXopKMdIK9VX HBhciANCkpUIDAzLzEwLz LmHsUuEMm4PyBXEDakEVG hWPawOYAlX48zt1WKr2Cs EWVkn0qplOrdf0WaaXEaL LkySVRsgAGvAUbmtQ5kRi Vxp3lapEp6CMikzrL4GFL aaj4voFgkqB0hRIxpl0rq TBK0SAUxhDJqfBAcQZxzu MfgnN5kSdFgCsd6YLglXB JeY9BbU6SuwwW0BRKgKDr uXGZzMTYgDQp9 [facility] Work Phone: Performing Lab w4ctoVQyHDDbpQSpYuQk M XReUOEfe9lnHYVmuKSmRj EwMzNcZnRuYmpcdWMxXGR sDvLhw8npf272vIOsf4xf NDNoMeS1vMKsVNXiwIUfL 086VWSlLLvqc3tli6HhDN JedHZiu1L5GCYSesmrgAs 2mVodQ32cx3A5CnipE7tm OULzNNCnG7JbYN5qAGChO ar4XHE2RGI3YZDbBFCeD2 KtOL8zDJGvhOXaLNq2x1z cnZlpBYCvAZO6s3shRLin baTdSS2wsl9lfJy0e0kbp zEgRGVmYXVsdCBQYXJhZ3 RbgPoySd8blCd1qDbcNzq wQKS2Yeu5FY9clo32nlj3 rCacGWZzwazfLsO3LUjpB VEaduktASw8EBjuVBNsmZ T6XDJvkFFfQ6BnYFhkBY3 zpaq9SKA6IFnyGJZtWhA7 NDBcaGVhZGVyeTcyMFxmb 835QEK0XoFaGJ1lJ4Qii0 H9sA6shJTfOBLvqYDnIoT wSDPlxp6onZNiHFdzz3Gj ITN9byN0jNGyuSIfWOTyY Q85Bbxnj7CaSrsxz6WaY7 5fyNP4ECofx0kmSU8uDaP 1tgXvOGkzq8huvK2hLxG0 FRaqAE5wHB3nCRZobI6yr mxjXHBnYnJkcmhlYWRccG wukyLnAj2frRzaIHG6VYk wP1qziJ7bLiX2YZweB1bz jK7sRAl7WOtgsVE8VYVbq U3vVI9xklkok1daLQvjIN inGWUbwaA7rlUrSGUkuTT iG7PbvO0gIHDyHO4qatzg q9csHBE2DBrhQGMkPUF7X gHcJNNvp7Yfemx5EtWnd4 YpvQFeDZbqO28xv891GUX yvcHwU0dtxFTwfteihNAv wrwbQHepzkM3IHWqZRVbG WluXGYxXGZzMjJcbGFuZz EwMzNcaGljaFxmMVxkYmN vVLGnTKylT2gdAjDlFbBa MtBBhGQafw9bgYzaXEgqz FYvfUGapIS4zN6wPGNynz Cidi3eXLQvvWYMvJG4XVd hybRhE4qzneweCRR5WDJd FMG8H9cxUVLSzoQaLSZgB NLfdSAhZJHMOER0AQQ6JV PoVVBQBVAjAXT8KVX3UTP wOTRccGFyXHBhclxwYXJk XHBsYWluXGYwXGZzMjRcc UxpoN9xGwIuNrUuJlvyAR 1uGXNmS1vooQVeVAPnPAH yT9leUnRfiF9fzCjxSLoz ZjJcZnMyMlxsdHJjaCBMY IKxusQ5s4N7ZWcrwATqzq xmMVxmczIyXGxhbmcxMDM aJMsqP9sqKaRlXYWxaBry PMemd2YcSLMoBQWyJjFoR PvzZCD0j2Q3GEztdMTenc JTNoOABV4ahNEfzwsiCJ4 ELlxwYXJ9 [facility] Work Phone: [facility] Work Phone: EGD Study observation Narrat dominguezleonardodevon 06-30-2022 [facility] Gastrointestinal Endoscopy Patient Name: Orion Harper Procedure Date: 06/30/2022 11:41 AM Date of : 1990 Admit Type: Outpatient Age: 31 Room: [facility] 2 Gender: Female Note Status: Finalized Attending [...] verified by the physician, the nurse, the lye boiler and the arcade technician in the procedure room at 11:35 [...] gastric ulcers (more content not included)... [employer] Radiology Study observation (narrative) [facility] XR KUB 1 VIEWon 06-30-2022 XR [...] JACKSON ADKINS Date: 2022-06-30 07:02 Normal [facility] US ABD RT UPPER QUADRANTon 0 06-15-[address] [facility] [address] ABD/PEL WO IVCONon 2022 Radiology Result ACTIONABLE Abnormal [facility] No Panel Informationon 05-27 [facility] LRHCL-1-UTIIQBYGBSF PHENOTYP INGon 05-11-2022 Esiee-8-Tejnpblrkpq, Serum 130 mg/dL Normal 100-188 [facility] Comment on above: Result Comment: Perf ormed at: CB Performed By: #### A LPHN #### [facility] Laboratory [address] [place] [address] Li Nagel Phenotype (PI) MM Normal [facility] Comment on above: Result [...] BN Performed By: #### A LPHN #### [facility] Laboratory [address] [place] [address] Li Nagel HEREDITARY HEMOCHROMATOSIS, DNA ANALYSISon 05-11-2022 Hereditary Hemochromatosis Comment Normal [facility] Comment on above: Result Comment: Resu lt: c.845G>A (p.Ppq641Wjm) - Not Detected c.187C>G (p.Epr12Kgt) - Not Detected c.193A>T (p.Nyy47Zfi) - Not Detected Not associated with increased [...] for patients who are homozygous for c.845G>A (p.Tyo994Paw) and have yet to experience clinical symptoms. . Comments: The most common HFE variants associated with hereditary hemochromatosis are c.845G>A (p.Jhy998Mgz), c.187C>G (p.Qiz42Skm), c.193A>T (p.Hvj85Zju). While patients homozygous for c.845G>A (p.Faq544Qff) are the most likely to present clinical symptoms, less than 10% develop clinically significant iron overload with tissue and organ damage. . Genetic counseling is recommended to discuss the potential clinical implications of positive results, as well as recommendations for testing family members. Genetic Coordinators are available for health care providers to discuss results at [phone]). . Test Details: Three variants analyzed: c.845G>A (p.Bfl910Rwj), commonly referred to as C282Y c.187C>G (p.Dwj57Ajb), commonly referred to as H63D c.193A>T (p.Asy87Kth), commonly referred to as S65C . Methods/Limitations: [...] developed and its performance characteristics determined by [employer]. It has not been cleared or approved by the Food and Drug Administration. . References: Brodie BR, Yoav PC, Deborah KV, Raymond LW, Ramsey ; [employer] Liver [employer]. Diagnosis and management of hemochromatosis: 2011 practice guideline by the [employer] Liver [employer]. Hepatology. 2011 Oct;54(1):328-43. doi: 10.1002/hep.94569. PMID: 75320709; PMCID: VDT0014715. Cora G, Olegario P, Fabio MCDONALD, Tabatha H, Love O, eZv S, Vazquez I, Kofi M, Sunitha S. [facility] best practice guidelines for the molecular genetic diagnosis of hereditary hemochromatosis (HH). Eur J Hum Margaret. 2016 Jul;24(4):479-95. doi: 10.1038/ejhg.2015.128. Epub 2014Oct 29. PMID: 20768285; PMCID: UTR4058738. . Anitra Hager, PhD, FACMG Dm Reyna, PhD Alexandro Rodriguez, PhD, FACMG Jhony Hammond, PhD, FACMG Oumar Avila, PhD, FACMG W Leelee Brand, PhD, FACMG Pascale Gracia, PhD, FACMG Lala Marvin, PhD, FAC Performed By: #### H EPACUT #### [facility] [address] [place] [address] Li Nagel DENY by IFAon 05-06-2022 Antinuclear Antibodies, IFA Negative Normal [facility] Comment on above: Result Comment: Nega tive <1:80 Borderline 1:80 Positive >1:80 ICAP nomenclature: AC-0 For more information about Hep-2 cell patterns use ANApatterns.org, the official website for the International Consensus on Antinuclear Antibody (DENY) Patterns (ICAP). Performed By: #### A LPHPHN #### [facility] Laboratory [address] [address] [address] Li Nagel CERULOPLASMINon 05-05-2022 Ceruloplasmin 27.9 mg/dL Normal 19.0-39.0 [facility] Comment on above: Performed By: #### H EPACUT #### [facility] Laboratory [address] [place] [address] Dr. Li Nagel HEPATITIS A AB IGMon 023 Hep A Ab, IgM Negative Normal Negative [facility] Comment on above: Performed By: #### I MMUN G #### [facility] Laboratory [address] [place] [address] Dr. Li Nagel IMMUNOGLOBULIN G INDEX SERUM OR CSFon 05-05-2022 Albumin [Mass/Vol] 4.8 g/dL Normal 3.8-4.[address] [facility] Comment on above: Performed By: #### I MMUN G #### [facility] Laboratory [address] [place] [address] Dr. Li Nagel Albumin, CSF NSPINL Normal [facility] Comment on above: Result Comment: Test not performed. No spinal fluid received. contacted Radha at your facility on 05-05-2022 Performed By: #### I MMUN G #### [facility] Laboratory [address] [place] [address] Dr. Li Nagel CSF IgG Index UPTCAL Normal [facility] Comment on above: Result Comment: Unab le to calculate result since non-numeric result obtained for component test. Performed By: #### I MMUN G #### [facility] [address] [place] [address] Dr. Li Nagel IgG, Quant, CSF NSPINL Normal [facility] Comment on above: Result Comment: Test not performed. No spinal fluid received. contacted Radha at your facility on 05-05-2022 Performed By: #### I MMUN G #### [facility] [address] [place] [address] Dr. Li Nagel IgG/Alb Ratio, CSF UPTCAL Normal [facility] Comment on above: Result Comment: Unab le to calculate result since non-numeric result obtained for component test. Performed By: #### I MMUN G #### [facility] [address] [address] [address] Li Nagel Immunoglobulin G, Qn, Serum 971 mg/dL Normal 586-1602 [facility] Comment on above: Performed By: #### I MMUN G #### [facility] [address] [place] [address] Dr. Li Nagel LIVER-KIDNEY MICROSOMAL (LKM ) ABon 05-05-2022 Liver-Kidney Microsomal Ab 1.3 Units Normal 0.0-20.0 [facility] Comment on above: Result Comment: Nega tive 0.0 - 20.0 Equivocal 20.1 - 24.9 Positive >24.9 . LKM type 1 antibodies are detected in patients with autoimmune hepatitis type 2 and in up to 8% of patients with chronic HCV infection. Performed By: #### H EPACUT #### [facility] [address] [place] [address] Dr. Li Nagel MITICHONDRIAL (M2) ANTIBODYo n 05-05-2022 Mitochondrial (M2) Antibody <20.0 Normal 0.0-20.0 [facility] Comment on above: Result Comment: Nega tive 0.0 - 20.0 Equivocal 20.1 - 24.9 Positive >24.9 . Mitochondrial (M2) Antibodies are found in 90-96% of patients with primary biliary cirrhosis. Performed By: #### A LPHPHN #### [facility] [address] [place] [address] Dr. Li Nagel SMOOTH MUSCLE ANTIBODYon Actin (Smooth Muscle) Antibody 9 Units Normal 0-19 [facility] Comment on above: Result Comment: Nega tive 0 - 19 Weak positive 20 - 30 Moderate to strong positive >30 . Actin Antibodies are found in 52-85% of patients with autoimmune hepatitis or chronic active hepatitis and in 22% of patients with primary biliary cirrhosis. Performed By: #### A LPHPHN #### [facility] [address] [place] [address] Dr. Li Nagel FERRITINon 05-03-2022 Ferritin [Mass/Vol] 319.0 ng/mL Critically high 6.2-137.0 [facility] Comment on above: Performed By: #### A LPHPHN #### [facility] [address] [address] [address] Li Nagel PAP ACOG PANEL 2: 30 to 65on 04-28-2022 . . Normal [facility] Comment on above: Result Comment: Perf ormed at: BA Performed By: #### I MMUN G #### [facility] [address] [address] [address] Li Nagel Age Gdln ACOG Testing - Normal [facility] Comment on above: Performed By: #### I MMUN G #### [facility] [address] [address] [address] Li Nagel DIAGNOSIS: Comment Normal [facility] Comment on above: Result Comment: NEGA TIVE FOR INTRAEPITHELIAL LESION OR MALIGNANCY. Performed at: BA Performed By: #### I MMUN G #### [facility] [address] [address] [address] Li Nagel HPV Aptima Negative Normal Negative [facility] Comment on above: Result Comment: This nucleic acid amplification test detects fourteen high-risk HPV types (16,18,31,33,35,39,45,51,52,56,58,59,66,68) without differentiation. Performed at: =G Performed By: #### I MMUN G #### [facility] [address] [address] [address] Li Nagel HPV Genotype Reflex Comment Normal [facility] Comment on above: Result Comment: Crit eria not met, HPV Genotype not performed. Performed at: BA Performed By: #### I MMUN G #### [facility] [address] [address] [address] Li Nagel Methodology: Comment Normal [facility] Comment on above: Result Comment: This liquid based ThinPrep(R) pap test was screened with the use of an image guided system. Performed at: WB Performed By: #### I MMUN G #### [facility] [address] [place] [address] Dr. Li Nagel Note: Comment Normal [facility] Comment on above: Result Comment: [...] Performed By: #### I MMUN G #### [facility] [address] [address] [address] Li Nagel Performed by: Comment Normal [facility] Comment on above: Result Comment: Gretta Hloly, Senior Controls Technician (ASCP) Performed at: BA Performed By: #### I MMUN G #### [facility] [address] [place] [address] Dr. Li Nagel Specimen adequacy: Comment Normal [facility] Comment on above: Result Comment: Sati sfactory for evaluation. No endocervical component is identified. Performed at: BA Performed By: #### I MMUN G #### [facility] [address] [place] [address] Dr. Li Nagel HEPATITIS PANEL, [facility] HBsAg Screen Negative Normal Negative [facility] Comment on above: Performed By: #### H EPACUT #### [facility] [address] [place] [address] Dr. Li Nagel HCV AB <0.1 Normal 0.0-0.9 [facility] Comment on above: Performed By: #### H EPACUT #### [facility] [address] [place] [address] Dr. Li Nagel Hep A Ab, IgM Negative Normal Negative [facility] Comment on above: Performed By: #### H EPACUT #### [facility] [address] [place] [address] Dr. Li Nagel Hep B Core Ab, IgM Negative Normal Negative [facility] Comment on above: Performed By: #### H EPACUT #### [facility] [address] [place] [address] Dr. Li Nagel Interpretation: Comment Normal [facility] Comment on above: Result Comment: Nega tive Not infected with HCV, unless recent infection is suspected or other evidence exists to indicate HCV infection. Performed By: #### H EPACUT #### [facility] [address] [place] [address] Dr. Li Nagel US PELVIS AND TRANSVAGon [...] LAURIE CRUZ Date: 2021-12-22 09:50 Normal [facility] US ABD RT UPPER QUADRANTon 0 12-10-2021 [facility] US PELVIS AND TRANSVAGon US PELVIS [...] LAURIE CRUZ Date: 2021-10-28 13:01 Normal [facility] VAGINITIS/VAGINOSIS DNA PROB Kwasi 10-21-2021 Sharif species Negative Normal Negative [facility] Comment on above: Performed By: #### I MMUN G #### [facility] [address] [place] [address] Dr. Li Nagel Gardnerella vaginalis Negative Normal Negative [facility] Comment on above: Performed By: #### I MMUN G #### [facility] [address] [place] [address] Dr. Li Nagel Trichomonas vaginalis Negative Normal Negative [facility] Comment on above: Performed By: #### I MMUN G #### [facility] [address] [place] [address] Dr. Li Nagel CBC AUTO DIFFon 10-20-2021 BASO # 0.0 103/ul Normal 0.0-0.1 [facility] Comment on above: Performed By: #### A LPHPHN #### [facility] [address] [place] [address] Dr. Li Nagel Basophils/100 WBC (Bld) 0.4 % Normal 0.2-2.0 [facility] Comment on above: Performed By: #### A LPHPHN #### [facility] [address] [place] [address] Dr. Li Nagel EO # 0.2 103/ul Normal 0.0-0.7 [facility] Comment on above: Performed By: #### A LPHPHN #### [facility] [address] [place] [address] Dr. Li Nagel Eosinophils/100 WBC (Bld) 2.6 % Normal 0.9-7.0 [facility] Comment on above: Performed By: #### A LPHPHN #### [facility] [address] [place] [address] Dr. Li Nagel Erythrocyte distribution width (RBC) [Ratio] 12.6 % Normal 11.0-15.0 [facility] Comment on above: Performed By: #### A LPHPHN #### [facility] [address] [place] [address] Dr. Li Nagel Hematocrit (Bld) [Volume fraction] 40.0 % Normal 36.0-48.0 [facility] Comment on above: Performed By: #### A LPHPHN #### [facility] [address] [place] [address] Dr. Li Nagel Hemoglobin (Bld) [Mass/Vol] 13.3 g/dL Normal 12.0-16.0 [facility] Comment on above: Performed By: #### A LPHPHN #### [facility] [address] [place] [address] Dr. Li Nagel IG # 0.06 10e3/ul Critically high 0.00-0.03 [facility] Comment on above: Performed By: #### A LPHPHN #### [facility] [address] [place] [address] Dr. Li Nagel IG % 0.9 % Critically high 0.0-0.5 [facility] Comment on above: Performed By: #### A LPHPHN #### [facility] [address] [place] [address] Dr. Li Nagel LYMPH # 2.2 103/ul Normal 1.2-3.8 [facility] Comment on above: Performed By: #### A LPHPHN #### [facility] [address] [place] [address] Dr. Li Nagel Lymphocytes/100 WBC (Bld) 31.0 % Normal 20.5-60.0 [facility] Comment on above: Performed By: #### A LPHPHN #### [facility] [address] [place] [address] Dr. Li Nagel MANUAL DIFF REQ NO Normal [facility] Comment on above: Performed By: #### A LPHPHN #### [facility] [address] [place] [address] Dr. Li Nagel MCH (RBC) [Entitic mass] 31.4 pg Normal 26.7-34.0 [facility] Comment on above: Performed By: #### A LPHPHN #### [facility] [address] [place] [address] Dr. Li Nagel MCHC (RBC) [Mass/Vol] 33.3 g/dL Normal 29.9-35.2 [facility] Comment on above: Performed By: #### A LPHPHN #### [facility] [address] [place] [address] Dr. Li Nagel MCV (RBC) [Entitic vol] 94.3 fL Normal 81.0-99.0 [facility] Comment on above: Performed By: #### A LPHPHN #### [facility] [address] [place] [address] Dr. Li Nagel MONO # 0.5 103/ul Normal 0.3-0.8 [facility] Comment on above: Performed By: #### A LPHPHN #### [facility] [address] [place] [address] Dr. Li Nagel Monocytes/100 WBC (Bld) 6.9 % Normal 1.7-12.0 [facility] Comment on above: Performed By: #### A LPHPHN #### [facility] [address] [place] [address] Dr. Li Ngael NEUT # 4.1 103/ul Normal 1.4-6.5 [facility] Comment on above: Performed By: #### A LPHPHN #### [facility] [address] [place] [address] Dr. Li Nagel Neutrophils/100 WBC (Bld) 58.2 % Normal 43.0-75.0 [facility] Comment on above: Performed By: #### A LPHPHN #### [facility] [address] [place] [address] Dr. Li Nagel Platelet mean volume (Bld) [Entitic vol] 11.0 fL Normal 9.5-13.5 [facility] Comment on above: Performed By: #### A LPHPHN #### [facility] [address], [place] [address] Dr. Li Nagel PLT 211 103/ul Normal 150-450 [facility] Comment on above: Performed By: #### A LPHPHN #### [facility] [address], [place] [address] Dr. Li Nagel RBC 4.24 106/ul Normal 4.20-5.40 [facility] Comment on above: Performed By: #### A LPHPHN #### [facility] [address], [place] [address] Dr. Li Nagel WBC 7.0 103/ul Normal 4.0-11.0 [facility] Comment on above: Performed By: #### A LPHPHN #### [facility] [address], [place] [address] ABD/PELV W CONon [...] MARIA DOLORES MOON Date: 2021-10-20 14:53 Normal [facility] OCC BLD IMMUNO SCREENon 09-23 OCCULT BLOOD Negative Normal NEGATIVE [facility] Comment on above: Performed By: #### O BSCRN #### [facility] [address] [address] [address] Li Nagel PROF 14(COMP METB)on 022 Albumin [Mass/Vol] 3.7 g/dL Normal 3.4-5.0 [facility] Comment on above: Performed By: #### A LPHPHN #### [facility] [address] [place] [address] Dr. Li Nagel Albumin/Globulin [Mass ratio] 1.2 {ratio} Normal [facility] Comment on above: Performed By: #### A LPHPHN #### [facility] [address] [place] [address] Dr. Li Nagel ALP [Catalytic activity/Vol] 86 U/L Normal 46-116 [facility] Comment on above: Performed By: #### A LPHPHN #### [facility] [address] [place] [address] Dr. Li Nagel ALT [Catalytic activity/Vol] 109 U/L Critically high 14-59 [facility] Comment on above: Performed By: #### A LPHPHN #### [facility] [address] [place] [address] Dr. Li Nagel Anion gap [Moles/Vol] 7.8 mmol/L Normal [facility] Comment on above: Performed By: #### A LPHPHN #### [facility] [address] [place] [address] Dr. Li Nagel AST [Catalytic activity/Vol] 57 U/L Critically high 15-37 [facility] Comment on above: Performed By: #### A LPHPHN #### [facility] [address] [place] [address] Dr. Li Nagel Bilirubin [Mass/Vol] 0.4 mg/dL Normal 0.2-1.0 [facility] Comment on above: Performed By: #### A LPHPHN #### [facility] [address] [address] [address] Li Nagel Calcium [Mass/Vol] 8.9 mg/dL Normal 8.5-10.[address] [facility] Comment on above: Performed By: #### A LPHPHN #### [facility] [address] [address] [address] Li Nagel Chloride [Moles/Vol] 104 mmol/L Normal 98-107 [facility] Comment on above: Performed By: #### A LPHPHN #### [facility] [address] [place] [address] Dr. Li Nagel CO2 [Moles/Vol] 27.7 mmol/L Normal 21.0-32.0 [facility] Comment on above: Performed By: #### A LPHPHN #### [facility] [address] [place] [address] Dr. Li Nagel Creatinine [Mass/Vol] 0.78 mg/dL Normal 0.55-1.02 [facility] Comment on above: Performed By: #### A LPHPHN #### [facility] [address] [place] [address] Dr. Li Nagel EGFR-AF TUVALUAN >60 Normal >=60 [facility] Comment on above: Performed By: #### A LPHPHN #### [facility] [address] [place] [address] Dr. Li Nagel EGFR-NON AF TUVALUAN >60 Normal >=60 [facility] Comment on above: Performed By: #### A LPHPHN #### [facility] [address] [place] [address] Dr. Li Nagel Globulin (S) [Mass/Vol] 3.2 g/dL Normal [facility] Comment on above: Performed By: #### A LPHPHN #### [facility] [address] [address] [address] Li Nagel Glucose [Mass/Vol] 104 mg/dL Normal 74-[address] [facility] Comment on above: Performed By: #### A LPHPHN #### [facility] [address] [place] [address] Dr. Li Nagel Potassium [Moles/Vol] 3.5 mmol/L Normal 3.5-5.1 [facility] Comment on above: Performed By: #### A LPHPHN #### [facility] [address] [place] [address] Dr. Li Nagel Protein [Mass/Vol] 6.9 g/dL Normal 6.4-8.[address] [facility] Comment on above: Performed By: #### A LPHPHN #### [facility] [address] [place] [address] Dr. Li Nagel Sodium [Moles/Vol] 136 mmol/L Normal 136-[address] [facility] Comment on above: Performed By: #### A LPHPHN #### [facility] [address] [place] [address] Dr. Li Nagel Urea nitrogen [Mass/Vol] 10.0 mg/dL Normal 7.0-18.0 [facility] Comment on above: Performed By: #### A LPHPHN #### [facility] [address] [place] [address] Dr. Li Nagel Urea nitrogen/Creatinine [Mass ratio] 12.8 mg/mg Normal [facility] Comment on above: Performed By: #### A LPHPHN #### [facility] [address] [place] [address] Dr. Li Nagel XR LSPINE MIN 4 [...] LAURIE CRUZ Date: 2021-09-06 15:05 Normal [facility] NM HEPATOBILIARY SCAN W EFon 08-27-2021 NM [...] by: JACKSON ADKINS Date: 2021-08-27 16:05 Normal [facility] Metabolic Pane [facility] 08-20-2021 Albumin [Mass/Vol] 5.0 g/dL Normal 3.6-5.1 [facility]asi [facility] [employer] Consultant Comment on above: Performed By: #### C MP #### [facility] [address], [place] [id number] Albumin/Globulin [Mass ratio] 2.1 {ratio} Normal 1.0-2.5 [facility] Special[facility] Comment on above: Performed By: #### C MP #### [facility] [address], [place] [id number] ALP [Catalytic activity/Vol] 110 U/L Normal 35-119 [facility] Comment on above: Performed By: #### C MP #### [facility] [address], [place] [id number] ALT [Catalytic activity/Vol] 71 U/L High 6-33 [facility] Special[facility] Comment on above: Result Comment: 03/24 Female reference range changed. Performed By: #### C MP #### [facility] [address], [place] [id number] Anion gap [Moles/Vol] 17 mmol/L Normal 12-20 [facility] Specialist Comment on above: Result Comment: Effe ctive 04/29/2019 reference range changed. Performed By: #### C MP #### [facility] [address], [place] [id number] AST [Catalytic activity/Vol] 69 U/L High 9-34 [facility] Comment on above: Performed By: #### C MP #### [facility] [address], [place] [id number] BUN/CREA 11 Ratio Normal 6-22 [facility] Comment on above: Performed By: #### C MP #### [facility] [address], [place] [id number] Calcium [Mass/Vol] 9.8 mg/dL Normal 8.6-10.2 [facility] Comment on above: Performed By: #### C MP #### [facility] [address], [place] [id number] Chloride [Moles/Vol] 99 mmol/L Normal 98-107 [facility] Comment on above: Performed By: #### C MP #### [facility] [address], [place] [id number] CO2 [Moles/Vol] 25 mmol/L Normal 20-31 [facility] Comment on above: Performed By: #### C MP #### [facility] [address], [place] [id number] Creatinine [Mass/Vol] 0.9 mg/dL Normal 0.6-1.[address] [facility] Comment on above: Performed By: #### C MP #### [facility] [address] [place], [place] [id number] eGFRAA 94 mL/min/1.73m2 Normal >60 [facility] Comment on above: Performed By: #### C MP #### [facility] [address], [place] [id number] eGFRNAA 78 mL/min/1.73m2 Normal >60 [facility] Comment on above: Performed By: #### C MP #### [facility] [address], [place] [id number] Globulin (S) [Mass/Vol] 2.4 g/dL Normal 1.9-3.7 [facility] Comment on above: Performed By: #### C MP #### [facility] [address] [place], [place] [id number] Glucose [Mass/Vol] 100 mg/dL High 65-99 [facility] Comment on above: Result Comment: For FASTING Glucose --- ADA reference ranges: Normal 65-99 mg/dl Prediabetes 100-125 Diabetes >/= 126 Performed By: #### C MP #### [facility] [address] [place], [place] [id number] Potassium [Moles/Vol] 3.8 mmol/L Normal 3.5-5.[address] [facility] Comment on above: Performed By: #### C MP #### [facility] [address] [place], [place] [id number] Protein [Mass/Vol] 7.4 g/dL Normal 6.1-8.1 [facility] Specialist Comment on above: Performed By: #### C MP #### [facility] [address], [place] [id number] Sodium [Moles/Vol] 137 mmol/L Normal 135-146 [facility] Specialist Comment on above: Performed By: #### C MP #### [facility] [address] [place], [place] [id number] TBIL <0.3 Normal [facility] Comment on above: Performed By: #### C MP #### [facility] [address], [place] [id number] Urea nitrogen [Mass/Vol] 10 mg/dL Normal 7-25 [facility] Comment on above: Performed By: #### C MP #### [facility] [address], [place] [id number] US SINGLE QUAD RT UPPERon US SINGLE [...] JACKSON ADKINS Date: 2021-08-16 08:19 Normal [facility] Complete Blood Count with Au to Diffon 08-06-2021 Basophils (Bld) [#/Vol] 0.03 10*3/uL Normal 0.00-0.20 [facility] [employer] Comment on above: Performed By: #### C MP, CBCAD, LIPD #### [facility] [address], [place] [id number] Basophils/100 WBC (Bld) 0.4 % Normal [facility] [employer] Comment on above: Performed By: #### C MP, CBCAD, LIPD #### [facility] [address], [place] [id number] Eosinophils (Bld) [#/Vol] 0.11 10*3/uL Normal 0.02-0.50 [facility] [employer] Consult[employer] Comment on above: Performed By: #### C MP, CBCAD, LIPD #### [facility] [address], [place] [id number] Eosinophils/100 WBC (Bld) 1.4 % Normal [facility] [employer] Comment on above: Performed By: #### C MP, CBCAD, LIPD #### [facility] [address], [place] [id number] Erythrocyte distribution width (RBC) [Ratio] 12.6 % Normal 11.0-15.0 [facility] [employer] Comment on above: Performed By: #### C MP, CBCAD, LIPD #### [facility] [address], [place] [id number] Hematocrit (Bld) [Volume fraction] 44.2 % Normal 35.0-47.0 [facility] [employer] Comment on above: Performed By: #### C MP, CBCAD, LIPD #### [facility] [address], [place] [id number] Hemoglobin (Bld) [Mass/Vol] 14.8 g/dL Normal 11.6-15.5 [facility] Comment on above: Performed By: #### C MP, CBCAD, LIPD #### [facility] [address], [place] [id number] Lymphocytes (Bld) [#/Vol] 2.2 10*3/uL Normal 0.9-3.9 [facility] Comment on above: Performed By: #### C MP, CBCAD, LIPD #### [facility] [address], [place] [id number] Lymphocytes/100 WBC (Bld) 28.1 % Normal [facility] Special[facility] Comment on above: Performed By: #### C MP, CBCAD, LIPD #### [facility] [address], [place] [id number] MCH (RBC) [Entitic mass] 31.2 pg Normal 27.0-33.0 [facility] Comment on above: Performed By: #### C MP, CBCAD, LIPD #### [facility] [address], [place] [id number] MCHC (RBC) [Mass/Vol] 33.5 g/dL Normal 32.0-36.[address] [facility] Comment on above: Performed By: #### C MP, CBCAD, LIPD #### [facility] [address], [place] [id number] MCV (RBC) [Entitic vol] 93 fL Normal 80-100 [facility] Comment on above: Performed By: #### C MP, CBCAD, LIPD #### [facility] [address], [place] [id number] Monocytes (Bld) [#/Vol] 0.4 10*3/uL Normal 0.2-0.9 [facility] Comment on above: Performed By: #### C MP, CBCAD, LIPD #### [facility] [address], [place] [id number] Monocytes/100 WBC (Bld) 4.8 % Normal [facility] Comment on above: Performed By: #### C MP, CBCAD, LIPD #### [facility] [address], [place] [id number] Neutrophils (Bld) [#/Vol] 5.1 10*3/uL Normal 1.5-7.8 [facility] Comment on above: Performed By: #### C MP, CBCAD, LIPD #### [facility] [address], [place] [id number] Neutrophils/100 WBC (Bld) 64.3 % Normal [facility] Comment on above: Performed By: #### C MP, CBCAD, LIPD #### [facility] [address], [place] [id number] Platelet mean volume (Bld) [Entitic vol] 11.00 fL Normal 7.50-12.50 [facility] Comment on above: Performed By: #### C MP, CBCAD, LIPD #### [facility] [address], [place] [id number] Platelets (Bld) [#/Vol] 296 10*3/uL Normal 140-400 [facility] Comment on above: Performed By: #### C MP, CBCAD, LIPD #### [facility] [address], [place] [id number] RBC (Bld) [#/Vol] 4.74 10*6/uL Normal 3.90-5.20 [facility] Comment on above: Performed By: #### C MP, CBCAD, LIPD #### [facility] [address], [place] [id number] RDW-SD 43.4 fL Normal 37.0-50.0 [facility] Comment on above: Performed By: #### C MP, CBCAD, LIPD #### [facility] [address], [place] [id number] WBC (Bld) [#/Vol] 8.0 10*3/uL Normal 3.8-11.0 [facility] Comment on above: Performed By: #### C MP, CBCAD, LIPD #### [facility] [address] [place] [id number] Comprehensive Metabolic Pane yair 04-15-2022 Albumin [Mass/Vol] 5.2 g/dL High 3.6-5.1 Casi [facility] [place] [employer] Consult[employer] Comment on above: Performed By: #### C NORBERTO, CBCAD, LIPD #### [facility] [address], [place] [id number] Albumin/Globulin [Mass ratio] 2.1 {ratio} Normal 1.0-2.5 [facility] [employer] Consultant Comment on above: Performed By: #### C MP, CBCAD, LIPD #### [facility] [address], [place] [id number] ALP [Catalytic activity/Vol] 115 U/L Normal 35-119 [facility] [employer] Consultant Comment on above: Performed By: #### C NORBERTO CBCAD, LIPD #### [facility] [address], [place] [id number] ALT [Catalytic activity/Vol] 101 U/L High 6-33 [facility] Specialist Comment on above: Result Comment: 03/24 Female reference range changed. Performed By: #### C MP, CBCAD, LIPD #### [facility] [address], [place] [id number] Anion gap [Moles/Vol] 20 mmol/L Normal 12-[address] [facility] Comment on above: Result Comment: Effe ctive 04/29/2019 reference range changed. Performed By: #### C MP, CBCAD, LIPD #### [facility] [address] [place] [facility] [id number] AST [Catalytic activity/Vol] 96 U/L High 9-34 [facility] Special[facility] Comment on above: Performed By: #### C MP, CBCAD, LIPD #### [facility] [address] [place] [facility] [place] [id number] BUN/CREA 9 Ratio Normal 6-22 [facility] [employer] Consultant Comment on above: Performed By: #### C MP, CBCAD, LIPD #### [facility] [address] [place] [facility] [id number] Calcium [Mass/Vol] 9.9 mg/dL Normal 8.6-10.2 Casi moran [place] [employer] Consultant Comment on above: Performed By: #### C MP, CBCAD, LIPD #### [facility] [address], [place] [id number] Chloride [Moles/Vol] 106 mmol/L Normal 98-107 [facility] Comment on above: Performed By: #### C NORBERTO, CBCAD, LIPD #### [facility] [address], [place] [id number] CO2 [Moles/Vol] 21 mmol/L Normal 20-31 [facility] Comment on above: Performed By: #### C NORBERTO, CBCAD, LIPD #### [facility] [address], [place] [id number] Creatinine [Mass/Vol] 0.9 mg/dL Normal 0.6-1.[address] [facility] Comment on above: Performed By: #### C NORBERTO, CBCAD, LIPD #### [facility] [address], [place] [id number] eGFRAA 90 mL/min/1.73m2 Normal >60 [facility] Comment on above: Performed By: #### C NORBERTO, CBCAD, LIPD #### [facility] [address] [place], [place] [id number] eGFRNAA 74 mL/min/1.73m2 Normal >60 [facility] Comment on above: Performed By: #### C NORBERTO, CBCAD, LIPD #### [facility] [address] [place], [place] [id number] Globulin (S) [Mass/Vol] 2.5 g/dL Normal 1.9-3.7 [facility] Comment on above: Performed By: #### C NORBERTO, CBCAD, LIPD #### [facility] [address] [place], [place] [id number] Glucose [Mass/Vol] 127 mg/dL High 65-99 [facility] Comment on above: Result Comment: For FASTING Glucose --- ADA reference ranges: Normal 65-99 mg/dl Prediabetes 100-125 Diabetes >/= 126 Performed By: #### C NORBERTO, CBCAD, LIPD #### [facility] [address], [place] [id number] Potassium [Moles/Vol] 4.2 mmol/L Normal 3.5-5.[address] [facility] Comment on above: Performed By: #### C MP, CBCAD, LIPD #### [facility] [address] [place] [facility] [id number] Protein [Mass/Vol] 7.7 g/dL Normal 6.1-8.1 [facility] [employer] Consultant Comment on above: Performed By: #### C MP, CBCAD, LIPD #### [facility] [address] [place] [facility] [place] [id number] Sodium [Moles/Vol] 143 mmol/L Normal 135-146 [facility] [employer] Consultant Comment on above: Performed By: #### C MP, CBCAD, LIPD #### [facility] [address], [place] [id number] TBIL <0.3 Normal [facility] Comment on above: Performed By: #### C MP, CBCAD, LIPD #### [facility] [address], [place] [id number] Urea nitrogen [Mass/Vol] 8 mg/dL Normal 7-25 [facility] Specialist Comment on above: Performed By: #### C MP, CBCAD, LIPD #### [facility] [address], [place] [id number] Hemoglobin A1Con 08-06-2021 EAG 99.67 Normal [facility] Comment on above: Performed By: #### A 1C #### [facility] [address], [place] [id number] HbA1c (Bld) [Mass fraction] 5.1 % Normal 4.0-6.0 [facility] Specialist Comment on above: Performed By: #### A 1C #### [facility] [address], [place] [id number] Lipid Panelon 08-06-2021 Cholesterol [Mass/Vol] 190 mg/dL Normal 125-200 No [facility] Comment on above: Result Comment: Low risk < 200mg/dL Borderline risk 201-239 mg/dl High risk > or equal to 240 Performed By: #### C MP, CBCAD, LIPD #### [facility] [address] [place] [facility] [place] [id number] Cholesterol in HDL [Mass/Vol] 64 mg/dL Normal >40 [facility] [employer] Consult[facility] Comment on above: Result Comment: High Cardiovascular Risk HDL <40 mg/dL Low Cardiovascular Risk HDL > or equal to 60 mg/dl Performed By: #### C NORBERTO, CBCAD, LIPD #### [facility] [address], [place] [id number] Cholesterol in LDL [Mass/Vol] 107 mg/dL Normal [facility] [employer] Consultant Comment on above: Result Comment: LDL ATP III CLASSIFICATION LDL less than 100 mg/dl Optimal LDL 100-129 mg/dl Near or above optimal LDL 130-159 Borderline high LDL 160-189 High LDL greater than 189 mg/dl Very High Performed By: #### C MP, CBCAD, LIPD #### [facility] [address], [place] [id number] Cholesterol in VLDL [Mass/Vol] 19 mg/dL Normal [facility] [employer] Consultant Comment on above: Performed By: #### C MP, CBCAD, LIPD #### [facility] [address], [place] [id number] Cholesterol.total/Chol esterol in HDL [Mass ratio] 3 {ratio} Normal [facility] [employer] Consultant Comment on above: Performed By: #### C MP, CBCAD, LIPD #### [facility] [address], [place] [id number] Triglyceride [Mass/Vol] 95 mg/dL Normal 30-150 [facility] [employer] Consultant Comment on above: Result Comment: TRIG ATPIII CLASSIFICATIONS TRIG less than 150 mg/dl Normal TRIG 150-199 mg/dl Borderline High TRIG 200-500 mg/dl High TRIG greather than 500 mg/dl Very High Performed By: #### C MP, CBCAD, LIPD #### [facility] [address], [place] [id number] Q - CULTURE,URINE,ROUTINEon 06-04-2021 CULTURE, URINE, ROUTINE SEE NOTE Normal [facility] [employer] Consultant Comment on above: Order Comment: [facility] performed at: [employer], [employer] [facility], [address] [place] [address], [address] [place] [address], [place], [address], [employer]: Tim Dotson MD [facility] Collection Date/Time: [facility] Results Received Date/Time: [facility] Reported Date/Time: [id number] Result Comment: CULT URE, URINE, ROUTINE Micro Number: [id number] Test Status: Final Specimen Source: Not given Specimen Quality: Adequate Result: Mixed genital marie isolated. These superficial bacteria are not indicative of a urinary tract infection. No further organism identification is warranted on this specimen. If clinically indicated, recollect clean-catch, mid-stream urine and transfer immediately to Urine Culture Transport Tube. Performed By: #### [id number] #### [facility] Default [address] [place] [address] MRI LUMBAR SPINE WO CONTRAST on 11-06-2018 [...] Naren Lagos MD 11/06/18 Final result Normal [facility] Vital Signs Date Time Vital Sign Value Performing Clinician Facility 01-15-2025 16:24-0400 Body height 157.5 cm Milton Fraire DPM FACFAS Work Phone: [facility] 01-15-2025 16:24-0400 Body mass index (BMI) [Ratio] 38.78 kg/m2 Milton Fraire DPM [facility] Work Phone: [facility] 01-15-2025 16:24-0400 Body weight 96.16 kg Milton Corneliusce DPM [facility]AC[employer] Work Phone: [facility] 01-15-2025 16:24-0400 Diastolic blood pressure 64 mm[Hg] Milton Fraire DPM FAC[facility]AS Work Phone: [facility] 01-15-2025 16:24-0400 Heart rate 88 /min Milton Fraire DPM [facility]AC[employer] Work Phone: [facility] 01-15-2025 16:24-0400 Systolic blood pressure 110 mm[Hg] Milton Fraire DPM FAC[facility]AS Work Phone: [facility] 01-06-2025 11:01-0400 Body height 157.5 cm Giovani Hagen MD Work Phone: [facility] 01-06-2025 11:01-0400 Body mass index (BMI) [Ratio] 38.78 kg/m2 Giovani Hagen MD Work Phone: [facility] 01-06-2025 11:01-0400 Body weight 96.16 kg Giovani Hagen MD Work Phone: [facility] 01-06-2025 11:01-0400 Diastolic blood pressure 62 mm[Hg] Giovani Hagen MD Work Phone: [facility] 01-06-2025 11:01-0400 Heart rate 90 /min Giovani Hagen MD Work Phone: [facility] 01-06-2025 11:01-0400 Respiratory rate 16 /min Giovani Hagen MD Work Phone: [facility] 01-06-2025 11:01-0400 SaO2% (BldA) [Mass fraction] 97 % Giovani Hagen MD Work Phone: [facility] 01-06-2025 11:01-0400 Systolic blood pressure 106 mm[Hg] Giovani Hagen MD Work Phone: [facility] 12-30-2024 13:46-0400 Body height 157.5 cm Milton Dolce DPM [employer] Work Phone: [facility] 12-30-2024 13:46-0400 Body mass index (BMI) [Ratio] 37.68 kg/m2 Milton Fraire DPM [employer] Work Phone: [facility] 12-30-2024 13:46-0400 Body weight 93.44 kg Milton Adryanbran DPM [employer] Work Phone: [facility] 12-30-2024 13:46-0400 Diastolic blood pressure 74 mm[Hg] Milton Fraire DPM [facility] Work Phone: [facility] 12-30-2024 13:46-0400 Heart rate 91 /min Milton Fraire DPM [employer] Work Phone: [facility] 12-30-2024 13:46-0400 Systolic blood pressure 115 mm[Hg] Milton Fraire DPM [employer] Work Phone: [facility] 12-30-2024 09:14-0400 Body mass index (BMI) [Ratio] 36.28 kg/m2 Emma Reaper [employer]HW[employer] WORK[employer] Work Phone: [facility] 12-30-2024 09:14-0400 Body weight 92.9 kg Emma Reaper [employer]IGHW[employer] WORKER Work Phone: [facility] 12-30-2024 09:14-0400 Diastolic blood pressure 94 mm[Hg] Emma Reaper [employer]IGHW[employer] WORKER Work Phone: [facility] 12-30-2024 09:14-0400 Systolic blood pressure 132 mm[Hg] Emma Reaper [employer]HIGHW[employer] WORKER Work Phone: [facility] 12-26-2024 13:17-0400 Body height 157.5 cm Jatin Cabrera MD Work Phone: [facility] 12-26-2024 13:17-0400 Body mass index (BMI) [Ratio] 37.68 kg/m2 Jatin Cabrera MD Work Phone: [facility] 12-26-2024 13:17-0400 Body weight 93.44 kg Jatin Cabrera MD Work Phone: [facility] 12-26-2024 13:17-0400 Diastolic blood pressure 72 mm[Hg] Jatin Cabrera MD Work Phone: [facility] 12-26-2024 13:17-0400 Systolic blood pressure 110 mm[Hg] Jatin Cabrera MD Work Phone: [facility] 12-16-2024 09:45-0400 Body height 157.5 cm Giovani Hagen MD Work Phone: [facility] 12-16-2024 09:45-0400 Body mass index (BMI) [Ratio] 36.76 kg/m2 Giovani Hagen MD Work Phone: [facility] 12-16-2024 09:45-0400 Body weight 91.17 kg Giovani Hagen MD Work Phone: [facility] 12-16-2024 09:45-0400 Diastolic blood pressure 68 mm[Hg] Giovani Hagen MD Work Phone: [facility] 12-16-2024 09:45-0400 Heart rate 93 /min Giovani Hagen MD Work Phone: [facility] 12-16-2024 09:45-0400 SaO2% (BldA) [Mass fraction] 98 % Giovani Hagen MD Work Phone: [facility] 12-16-2024 09:45-0400 Systolic blood pressure 108 mm[Hg] Giovani Hagen MD Work Phone: [facility] 12-13-2024 10:18-0400 Body height 157.5 cm Milton Fraire DPM FAC[employer]AS Work Phone: [facility] 12-13-2024 10:18-0400 Body mass index (BMI) [Ratio] 36.76 kg/m2 Milton Fraire DPM [employer] Work Phone: [facility] 12-13-2024 10:18-0400 Body weight 91.17 kg Milton Fraire DPM [employer]AC[employer] Work Phone: [facility] 12-13-2024 10:18-0400 Diastolic blood pressure 75 mm[Hg] Milton Fraire DPM FAC[employer]AS Work Phone: [facility] 12-13-2024 10:18-0400 Heart rate 88 /min Milton Fraire DPM [employer] Work Phone: [facility] 12-13-2024 10:18-0400 Systolic blood pressure 115 mm[Hg] Milton Fraire DPM FAC[employer] Work Phone: [facility] 12-12-2024 10:38-0400 Body height 157.5 cm Sandy Hemmer PA Work Phone: [facility] 12-12-2024 10:38-0400 Body mass index (BMI) [Ratio] 36.62 kg/m2 Sandy Hemmer PA Work Phone: [facility] 12-12-2024 10:38-0400 Body weight 90.81 kg Sandy Hemmer PA Work Phone: [facility] 12-12-2024 10:38-0400 Diastolic blood pressure 76 mm[Hg] Sandy Hemmer PA Work Phone: [facility] 12-12-2024 10:38-0400 Heart rate 89 /min Sandy Hemmer PA Work Phone: [facility] 12-12-2024 10:38-0400 Respiratory rate 16 /min Sandy Hemmer PA Work Phone: [facility] 12-12-2024 10:38-0400 SaO2% (BldA) [Mass fraction] 98 % Sandy Hemmer PA Work Phone: [facility] 12-12-2024 10:38-0400 Systolic blood pressure 112 mm[Hg] Sandy Hemmer PA Work Phone: [facility] 10-10-2024 12:31-0400 Body height 157.5 cm Shannon Darden [employer] Work Phone: [facility] 10-10-2024 12:31-0400 Body mass index (BMI) [Ratio] 35.3 kg/m2 Shannon Navarromaribel [employer] Work Phone: [facility] 10-10-2024 12:31-0400 Body weight 87.54 kg Shannon Navarromaribel [employer] Work Phone: [facility] 10-09-2024 13:00-0400 Body mass index (BMI) [Ratio] 33.83 kg/m2 Mario Harper [employer]IGHW[employer] WORKER Work Phone: [facility] 10-09-2024 13:00-0400 Body weight 86.64 kg Mario Harper [employer]HIGHW[employer] WORKER Work Phone: [facility] 10-09-2024 13:00-0400 Diastolic blood pressure 76 mm[Hg] Mario Harper [employer]IGHWAY WORKER Work Phone: [facility] 10-09-2024 13:00-0400 Heart rate 106 /min Mario Harper [employer]HER [employer].HIGHW[employer] WORKER Work Phone: [facility] 10-09-2024 13:00-0400 SaO2% (BldA) [Mass fraction] 99 % Mario Harper [employer]HER [employer].HIGHWAY WORKER Work Phone: [facility] 10-09-2024 13:00-0400 Systolic blood pressure 112 mm[Hg] Mario Harper [employer]HER [employer].HIGHWAY WORKER Work Phone: [facility] 10-08-2024 11:42-0400 Body height 157.5 cm Deena Lyn [employer] Work Phone: [facility] 10-08-2024 11:42-0400 Body mass index (BMI) [Ratio] 34.75 kg/m2 Deena Lyn [employer] Work Phone: [facility] 10-08-2024 11:42-0400 Body weight 86.18 kg Deena Lyn [employer] Work Phone: [facility] 10-08-2024 11:42-0400 Diastolic blood pressure 88 mm[Hg] Deena Lyn [employer] Work Phone: [facility] 10-08-2024 11:42-0400 Heart rate 110 /min Deena [place] [employer] Work Phone: [facility] 10-08-2024 11:42-0400 Respiratory rate 16 /min Deena [place] [employer] Work Phone: [facility] 10-08-2024 11:42-0400 SaO2% (BldA) [Mass fraction] 99 % Deena [place] [employer] Work Phone: [facility] 10-08-2024 11:42-0400 Systolic blood pressure 134 mm[Hg] Deena [place] [employer] Work Phone: [facility] 09-25-2024 10:25-0400 Body height 157.5 cm Deena Riki [employer] Work Phone: [facility] 09-25-2024 10:25-0400 Body mass index (BMI) [Ratio] 35.74 kg/m2 Deena [place] [employer] Work Phone: [facility] 09-25-2024 10:25-0400 Body weight 88.63 kg Deena Riki [employer] Work Phone: [facility] 09-25-2024 10:25-0400 Diastolic blood pressure 72 mm[Hg] Deena Riki [employer] Work Phone: [facility] 09-25-2024 10:25-0400 Heart rate 94 /min Deena [place] [employer] Work Phone: [facility] 09-25-2024 10:25-0400 Respiratory rate 17 /min Deena Riki [employer] Work Phone: [facility] 09-25-2024 10:25-0400 SaO2% (BldA) [Mass fraction] 97 % Deena Riki [employer] Work Phone: [facility] 09-25-2024 10:25-0400 Systolic blood pressure 110 mm[Hg] Deena [place] [employer] Work Phone: [facility] 09-17-2024 11:11-0400 Body height 157.5 cm Sandy Armenta PA Work Phone: [facility] 09-17-2024 11:11-0400 Body mass index (BMI) [Ratio] 35.26 kg/m2 Sandy Hemmer PA Work Phone: [facility] 09-17-2024 11:11-0400 Body weight 87.45 kg Sandy Hemmer PA Work Phone: [facility] 09-17-2024 11:11-0400 Diastolic blood pressure 76 mm[Hg] Sandy Hemmer PA Work Phone: [facility] 09-17-2024 11:11-0400 Heart rate 75 /min Sandy Hemmer PA Work Phone: [facility] 09-17-2024 11:11-0400 Respiratory rate 16 /min Sandy Hemmer PA Work Phone: [facility] 09-17-2024 11:11-0400 SaO2% (BldA) [Mass fraction] 99 % Sandy Hemmer PA Work Phone: [facility] 09-17-2024 11:11-0400 Systolic blood pressure 112 mm[Hg] Sandy Hemmer PA Work Phone: [facility] 09-10-2024 13:37-0400 Body height 157.5 cm Giovani Hagen MD Work Phone: [facility] 09-10-2024 13:37-0400 Body mass index (BMI) [Ratio] 34.93 kg/m2 Giovani Hagen MD Work Phone: [facility] 09-10-2024 13:37-0400 Body weight 86.64 kg Giovani Hagen MD Work Phone: [facility] 09-10-2024 13:37-0400 Diastolic blood pressure 72 mm[Hg] Giovani Hagen MD Work Phone: [facility] 09-10-2024 13:37-0400 Heart rate 88 /min Giovani Hagen MD Work Phone: [facility] 09-10-2024 13:37-0400 SaO2% (BldA) [Mass fraction] 98 % Giovani Hagen MD Work Phone: [facility] 09-10-2024 13:37-0400 Systolic blood pressure 118 mm[Hg] Giovani Hagen MD Work Phone: [facility] 09-04-2024 16:21-0400 Body height 157.5 cm Milton Fraire DPM FACFAS Work Phone: [facility] 09-04-2024 16:21-0400 Body mass index (BMI) [Ratio] 33.65 kg/m2 Milton Fraire DPM FACFAS Work Phone: [facility] 09-04-2024 16:21-0400 Body weight 83.46 kg Milton Fraire DPM FACFAS Work Phone: [facility] 09-04-2024 16:21-0400 Diastolic blood pressure 80 mm[Hg] Milton Fraire DPM FACFAS Work Phone: [facility] 09-04-2024 16:21-0400 Heart rate 87 /min Milton Fraire DPM FACFAS Work Phone: [facility] 09-04-2024 16:21-0400 Systolic blood pressure 131 mm[Hg] Milton Fraire DPM FACFAS Work Phone: [facility] 09-02-2024 15:13-0400 Body height 157.5 cm Giovani Hagen MD Work Phone: [facility] 09-02-2024 15:13-0400 Body mass index (BMI) [Ratio] 33.65 kg/m2 Giovani Hagen MD Work Phone: [facility] 09-02-2024 15:13-0400 Body weight 83.46 kg Giovani Hagen MD Work Phone: [facility] 09-02-2024 15:13-0400 Diastolic blood pressure 82 mm[Hg] Giovani Hagen MD Work Phone: [facility] 09-02-2024 15:13-0400 Heart rate 113 /min Giovani Hagen MD Work Phone: [facility] 09-02-2024 15:13-0400 SaO2% (BldA) [Mass fraction] 97 % Giovani Hagen MD Work Phone: [facility] 09-02-2024 15:13-0400 Systolic blood pressure 132 mm[Hg] Giovani Hagen MD Work Phone: [facility] 08-21-2024 16:14-0400 Body height 157.5 cm Milton Fraire DPM FACFAS Work Phone: [facility] 08-21-2024 16:14-0400 Body mass index (BMI) [Ratio] 34.2 kg/m2 Milton Fraire DPM FACFAS Work Phone: [facility] 08-21-2024 16:14-0400 Body weight 84.82 kg Milton Fraire DPM FACFAS Work Phone: [facility] 08-21-2024 16:14-0400 Diastolic blood pressure 80 mm[Hg] Milton Fraire DPM FACFAS Work Phone: [facility] 08-21-2024 16:14-0400 Heart rate 80 /min Milton Fraire DPM FACFAS Work Phone: [facility] 08-21-2024 16:14-0400 Systolic blood pressure 127 mm[Hg] Milton Fraire DPM FACFAS Work Phone: [facility] 08-19-2024 08:48-0400 Body weight 77.11 kg Giovani Hagen MD Work Phone: [facility] 08-19-2024 07:30-0400 Body temperature 98.1 [degF] Giovani Hagen MD Work Phone: [facility] 08-19-2024 07:30-0400 Diastolic blood pressure 75 mm[Hg] Giovani Hagen MD Work Phone: [facility] 08-19-2024 07:30-0400 Heart rate 85 /min Giovani Hagen MD Work Phone: [facility] 08-19-2024 07:30-0400 Respiratory rate 18 /min Giovani Hagen MD Work Phone: [facility] 08-19-2024 07:30-0400 SaO2% (BldA) [Mass fraction] 97 % Giovani Hagen MD Work Phone: [facility] 08-19-2024 07:30-0400 Systolic blood pressure 114 mm[Hg] Giovani Hagen MD Work Phone: [facility] 08-16-2024 17:29-0400 Body height 157.48 cm Giovani Hagen MD Work Phone: [facility] 08-14-2024 16:39-0400 Body height 157.5 cm Milton Dolce DPM FACFAS Work Phone: [facility] 08-14-2024 16:39-0400 Body mass index (BMI) [Ratio] 34.2 kg/m2 Milton Dolce DPM FACFAS Work Phone: [facility] 08-14-2024 16:39-0400 Body weight 84.82 kg Milton Dolce DPM FACFAS Work Phone: [facility] 08-14-2024 16:39-0400 Diastolic blood pressure 80 mm[Hg] Milton Dolce DPM FACFAS Work Phone: [facility] 08-14-2024 16:39-0400 Heart rate 82 /min Milton Dolce DPM FACFAS Work Phone: [facility] 08-14-2024 16:39-0400 Systolic blood pressure 125 mm[Hg] Milton Dolce DPM FACFAS Work Phone: [facility] 08-13-2024 14:57-0400 Body height 160 cm Solo Mora MD Work Phone: [facility] 08-13-2024 14:57-0400 Body mass index (BMI) [Ratio] 31.89 kg/m2 Solo Mora MD Work Phone: [facility] 08-13-2024 14:57-0400 Body weight 81.65 kg Solo Mora MD Work Phone: [facility] 08-13-2024 14:57-0400 Diastolic blood pressure 96 mm[Hg] Solo Mora MD Work Phone: [facility] 08-13-2024 14:57-0400 Heart rate 92 /min Solo Mora MD Work Phone: [facility] 08-13-2024 14:57-0400 Systolic blood pressure 140 mm[Hg] Solo Mora MD Work Phone: [facility] 08-01-2024 14:31-0400 Body height 157.5 cm Giovani Hagen MD Work Phone: [facility] 08-01-2024 14:31-0400 Body mass index (BMI) [Ratio] 34.2 kg/m2 Giovani Hagen MD Work Phone: [facility] 08-01-2024 14:31-0400 Body weight 84.82 kg Giovani Hagen MD Work Phone: [facility] 08-01-2024 14:31-0400 Diastolic blood pressure 82 mm[Hg] Giovani Hagen MD Work Phone: [facility] 08-01-2024 14:31-0400 Heart rate 85 /min Giovani Hagen MD Work Phone: [facility] 08-01-2024 14:31-0400 SaO2% (BldA) [Mass fraction] 100 % Giovani Hagen MD Work Phone: [facility] 08-01-2024 14:31-0400 Systolic blood pressure 124 mm[Hg] Giovani Hagen MD Work Phone: [facility] 07-24-2024 16:04-0400 Body height 157.5 cm Milton Fraire DPM FACFAS Work Phone: [facility] 07-24-2024 16:04-0400 Body mass index (BMI) [Ratio] 34.75 kg/m2 Milton Fraire DPM FACFAS Work Phone: [facility] 07-24-2024 16:04-0400 Body weight 86.18 kg Mitlon Fraire DPM FACFAS Work Phone: [facility] 07-24-2024 16:04-0400 Diastolic blood pressure 88 mm[Hg] Milton Fraire DPM FACFAS Work Phone: [facility] 07-24-2024 16:04-0400 Heart rate 109 /min Milton Fraire DPM FACFAS Work Phone: [facility] 07-24-2024 16:04-0400 Systolic blood pressure 132 mm[Hg] Mitlon Fraire DPM FACFAS Work Phone: [facility] 07-10-2024 09:45-0400 Body height 158.8 cm Javy Boudreaux MD Work Phone: [facility] 07-10-2024 09:45-0400 Body mass index (BMI) [Ratio] 34.2 kg/m2 Javy Boudreaux MD Work Phone: [facility] 07-10-2024 09:45-0400 Body weight 86.18 kg Javy Boudreaux MD Work Phone: [facility] 07-10-2024 09:45-0400 Diastolic blood pressure 90 mm[Hg] Javy Boudreaux MD Work Phone: [facility] 07-10-2024 09:45-0400 Heart rate 108 /min Javy Boudreaux MD Work Phone: [facility] 07-10-2024 09:45-0400 Systolic blood pressure 131 mm[Hg] Javy Boudreaux MD Work Phone: [facility] 07-04-2024 15:30-0400 Body height 157.5 cm Giovani Hagen MD Work Phone: [facility] 07-04-2024 15:30-0400 Body mass index (BMI) [Ratio] 34.75 kg/m2 Giovani Hagen MD Work Phone: [facility] 07-04-2024 15:30-0400 Body weight 86.18 kg Giovani Hagen MD Work Phone: [facility] 07-04-2024 15:30-0400 Diastolic blood pressure 88 mm[Hg] Giovani Hagen MD Work Phone: [facility] 07-04-2024 15:30-0400 Heart rate 109 /min Giovani Hagen MD Work Phone: [facility] 07-04-2024 15:30-0400 SaO2% (BldA) [Mass fraction] 98 % Giovani Hagen MD Work Phone: [facility] 07-04-2024 15:30-0400 Systolic blood pressure 132 mm[Hg] Giovani Hagen MD Work Phone: [facility] 07-03-2024 14:55-0400 Body height 157.5 cm Milton Dolce DPM FACFAS Work Phone: [facility] 07-03-2024 14:55-0400 Body mass index (BMI) [Ratio] 34.93 kg/m2 Milton Dolce DPM FACFAS Work Phone: [facility] 07-03-2024 14:55-0400 Body weight 86.64 kg Milton Dolce DPM FACFAS Work Phone: [facility] 07-03-2024 14:55-0400 Diastolic blood pressure 79 mm[Hg] Milton Dolce DPM FACFAS Work Phone: [facility] 07-03-2024 14:55-0400 Heart rate 88 /min Milton Dolce DPM FACFAS Work Phone: [facility] 07-03-2024 14:55-0400 Systolic blood pressure 132 mm[Hg] Milton Dolce DPM FACFAS Work Phone: [facility] 06-26-2024 15:00-0500 Body height 157.5 cm Milton Dolce DPM FACFAS Work Phone: [facility] 06-26-2024 15:00-0500 Body mass index (BMI) [Ratio] 34.93 kg/m2 Milton Dolce DPM FACFAS Work Phone: [facility] 06-26-2024 15:00-0500 Body weight 86.64 kg Milton Fraire DPM FACFAS Work Phone: [facility] 06-26-2024 15:00-0500 Diastolic blood pressure 79 mm[Hg] Milton Fraire DPM FACFAS Work Phone: [facility] 06-26-2024 15:00-0500 Heart rate 88 /min Milton Friare DPM FACFAS Work Phone: [facility] 06-26-2024 15:00-0500 Systolic blood pressure 132 mm[Hg] Milton Fraire DPM FACFAS Work Phone: [facility] 06-25-2024 14:38-0500 Body mass index (BMI) [Ratio] 34.9 kg/m2 Darwin Matty DO Work Phone: [facility] 06-25-2024 14:38-0500 Body weight 86.55 kg Darwin Matty DO Work Phone: [facility] 06-25-2024 14:38-0500 Diastolic blood pressure 78 mm[Hg] Darwin Matty DO Work Phone: [facility] 06-25-2024 14:38-0500 Systolic blood pressure 130 mm[Hg] Darwin Matty DO Work Phone: [facility] 06-19-2024 14:37-0500 Body height 157.5 cm Prateek Pedraza DPM Work Phone: [facility] 06-19-2024 14:37-0500 Body mass index (BMI) [Ratio] 35.85 kg/m2 Prateek Pedraza DPM Work Phone: [facility] 06-19-2024 14:37-0500 Body weight 88.91 kg Prateek Pedraza DPM Work Phone: [facility] 06-19-2024 14:37-0500 Respiratory rate 18 /min Prateek Pedraza DPM Work Phone: [facility] 06-06-2024 15:42-0500 Body height 157.5 cm Giovani Hagen MD Work Phone: [facility] 06-06-2024 15:42-0500 Body mass index (BMI) [Ratio] 35.85 kg/m2 Giovani Hagen MD Work Phone: [facility] 06-06-2024 15:42-0500 Body weight 88.91 kg Giovani Hagen MD Work Phone: [facility] 06-06-2024 15:42-0500 Diastolic blood pressure 82 mm[Hg] Giovani Hagen MD Work Phone: [facility] 06-06-2024 15:42-0500 Heart rate 96 /min Giovani Hagen MD Work Phone: [facility] 06-06-2024 15:42-0500 SaO2% (BldA) [Mass fraction] 99 % Giovani Hagen MD Work Phone: [facility] 06-06-2024 15:42-0500 Systolic blood pressure 118 mm[Hg] Giovani Hagen MD Work Phone: [facility] 05-29-2024 13:49-0500 Body mass index (BMI) [Ratio] 35.81 kg/m2 Ayleen JUSTICE Work Phone: [facility] 05-29-2024 13:49-0500 Body weight 88.81 kg Ayleen JUSTICE Work Phone: [facility] 05-29-2024 13:49-0500 Diastolic blood pressure 76 mm[Hg] Ayleen JUSTICE Work Phone: [facility] 05-29-2024 13:49-0500 Systolic blood pressure 122 mm[Hg] Ayleen JUSTICE Work Phone: [facility] 05-22-2024 14:30-0500 Diastolic blood pressure 92 mm[Hg] Carol Winn MD Work Phone: [facility] 05-22-2024 14:30-0500 Heart rate 102 /min Carol Winn MD Work Phone: [facility] 05-22-2024 14:30-0500 Respiratory rate 21 /min Carol Winn MD Work Phone: [facility] 05-22-2024 14:30-0500 SaO2% (BldA) [Mass fraction] 100 % Carol Winn MD Work Phone: [facility] 05-22-2024 14:30-0500 Systolic blood pressure 133 mm[Hg] Carol Winn MD Work Phone: [facility] 05-22-2024 13:40-0500 Body height 157.5 cm Carol Winn MD Work Phone: [facility] 05-22-2024 13:40-0500 Body mass index (BMI) [Ratio] 33.84 kg/m2 Carol Winn MD Work Phone: [facility] 05-22-2024 13:40-0500 Body weight 83.92 kg Carol Winn MD Work Phone: [facility] 05-15-2024 08:50-0500 Body height 157.5 cm Milton Fraire DPM FACFAS Work Phone: [facility] 05-15-2024 08:50-0500 Body mass index (BMI) [Ratio] 36.21 kg/m2 Milton Fraire DPM FACFAS Work Phone: [facility] 05-15-2024 08:50-0500 Body weight 89.81 kg Milton Fraire DPM FACFAS Work Phone: [facility] 05-15-2024 08:50-0500 Diastolic blood pressure 82 mm[Hg] Milton Fraire DPM FACFAS Work Phone: [facility] 05-15-2024 08:50-0500 Heart rate 92 /min Milton Fraire DPM FACFAS Work Phone: [facility] 05-15-2024 08:50-0500 Systolic blood pressure 132 mm[Hg] Milton Fraire DPM FACFAS Work Phone: [facility] 05-09-2024 14:55-0500 Body height 157.5 cm Giovani Hagen MD Work Phone: [facility] 05-09-2024 14:55-0500 Body mass index (BMI) [Ratio] 36.21 kg/m2 Giovani Hagen MD Work Phone: [facility] 05-09-2024 14:55-0500 Body weight 89.81 kg Giovani Hagen MD Work Phone: [facility] 05-09-2024 14:55-0500 Diastolic blood pressure 88 mm[Hg] Giovani Hagen MD Work Phone: [facility] 05-09-2024 14:55-0500 Heart rate 101 /min Giovani Hagen MD Work Phone: [facility] 05-09-2024 14:55-0500 SaO2% (BldA) [Mass fraction] 96 % Giovani Hagen MD Work Phone: [facility] 05-09-2024 14:55-0500 Systolic blood pressure 134 mm[Hg] Giovani Hagen MD Work Phone: [facility] 05-08-2024 15:13-0500 Body height 157.5 cm Prateek Pedraza DPM Work Phone: [facility] 05-08-2024 15:13-0500 Body mass index (BMI) [Ratio] 35.3 kg/m2 Prateek Pedraza DPM Work Phone: [facility] 05-08-2024 15:13-0500 Body weight 87.54 kg Prateek Pedraza DPM Work Phone: [facility] 05-08-2024 15:13-0500 Respiratory rate 18 /min Prateek Pedraza DPM Work Phone: [facility] 04-30-2024 15:10-0500 Body mass index (BMI) [Ratio] 35.12 kg/m2 Darwin Starr DO Work Phone: [facility] 04-30-2024 15:10-0500 Body weight 87.09 kg Darwin Matty DO Work Phone: [facility] 04-30-2024 15:10-0500 Diastolic blood pressure 74 mm[Hg] Darwin Matty DO Work Phone: [facility] 04-30-2024 15:10-0500 Systolic blood pressure 122 mm[Hg] Darwin Matty DO Work Phone: [facility] 04-26-2024 14:12-0500 Body mass index (BMI) [Ratio] 33.87 kg/m2 Iliana Yacapraro PA-C Work Phone: [facility] 04-26-2024 14:12-0500 Body weight 84 kg Iliana Yacapraro PA-C Work Phone: [facility] 04-26-2024 14:12-0500 Diastolic blood pressure 92 mm[Hg] Iliana Yacapraro PA-C Work Phone: [facility] 04-26-2024 14:12-0500 Heart rate 84 /min Iliana Yacapraro PA-C Work Phone: [facility] 04-26-2024 14:12-0500 Systolic blood pressure 133 mm[Hg] Iliana Yacapraro PA-C Work Phone: [facility] 04-18-2024 16:42-0500 Body mass index (BMI) [Ratio] 35.67 kg/m2 Josephine Gilman [employer] Work Phone: [facility] 04-18-2024 16:42-0500 Body temperature 97.7 [degF] Josephine Gilman [employer] Work Phone: [facility] 04-18-2024 16:42-0500 Body weight 88.45 kg Josephine Gilman [employer] Work Phone: [facility] 04-18-2024 16:42-0500 Diastolic blood pressure 82 mm[Hg] Josephine Gilman [employer] Work Phone: [facility] 04-18-2024 16:42-0500 Heart rate 112 /min Josephine Kalina [employer] Work Phone: [facility] Comment on above: repeat pulse 96bpm apical. 04-18-2024 16:42-0500 Respiratory rate 20 /min Josephine Kalina [employer] Work Phone: [facility] 04-18-2024 16:42-0500 SaO2% (BldA) [Mass fraction] 97 % Josephine Kalina [employer] Work Phone: [facility] 04-18-2024 16:42-0500 Systolic blood pressure 128 mm[Hg] Josephinelatosha Gilman [employer] Work Phone: [facility] 04-03-2024 10:39-0500 Body height 157.5 cm Deena Lyn [employer] Work Phone: [facility] 04-03-2024 10:39-0500 Body mass index (BMI) [Ratio] 35.01 kg/m2 Deena Lyn [employer] Work Phone: [facility] 04-03-2024 10:39-0500 Body weight 86.82 kg Deena Lyn [employer] Work Phone: [facility] 04-03-2024 10:39-0500 Diastolic blood pressure 82 mm[Hg] Deena Lyn [employer] Work Phone: [facility] 04-03-2024 10:39-0500 Heart rate 101 /min Deena Lyn [employer] Work Phone: [facility] 04-03-2024 10:39-0500 Respiratory rate 16 /min Deena Lyn [employer] Work Phone: [facility] 04-03-2024 10:39-0500 SaO2% (BldA) [Mass fraction] 99 % Deena Lyn [employer] Work Phone: [facility] 04-03-2024 10:39-0500 Systolic blood pressure 122 mm[Hg] Deena Lyn [employer] Work Phone: [facility] 12-09-2024 08:40-0500 Body height 157.5 cm Giovani Hagen MD Work Phone: [facility] 04-01-2024 08:40-0500 Body mass index (BMI) [Ratio] 34.39 kg/m2 Giovani Hagen MD Work Phone: [facility] 04-01-2024 08:40-0500 Body weight 85.28 kg Giovani Hagen MD Work Phone: [facility] 04-01-2024 08:40-0500 Diastolic blood pressure 88 mm[Hg] Giovani Hagen MD Work Phone: [facility] 04-01-2024 08:40-0500 Heart rate 88 /min Giovani Hagen MD Work Phone: [facility] 04-01-2024 08:40-0500 SaO2% (BldA) [Mass fraction] 94 % Giovani Hagen MD Work Phone: [facility] 04-01-2024 08:40-0500 Systolic blood pressure 132 mm[Hg] Giovani Hagen MD Work Phone: [facility] 03-20-2024 16:29-0500 Body mass index (BMI) [Ratio] 34.93 kg/m2 Darwin Matty DO Work Phone: [facility] 03-20-2024 16:29-0500 Body weight 86.64 kg Darwin Matty DO Work Phone: [facility] 03-20-2024 16:29-0500 Diastolic blood pressure 72 mm[Hg] Darwin Matty DO Work Phone: [facility] 03-20-2024 16:29-0500 Systolic blood pressure 118 mm[Hg] Darwin Matty DO Work Phone: [facility] 02-06-2024 09:14-0400 Body height 157.5 cm Giovani Hagen MD Work Phone: [facility] 02-06-2024 09:14-0400 Body mass index (BMI) [Ratio] 34.93 kg/m2 Giovani Hagen MD Work Phone: [facility] 02-06-2024 09:14-0400 Body weight 86.64 kg Giovani Hagen MD Work Phone: [facility] 02-06-2024 09:14-0400 Diastolic blood pressure 88 mm[Hg] Giovani Hagen MD Work Phone: [facility] 02-06-2024 09:14-0400 Heart rate 106 /min Giovani Hagen MD Work Phone: [facility] 02-06-2024 09:14-0400 SaO2% (BldA) [Mass fraction] 99 % Giovani Hagen MD Work Phone: [facility] 02-06-2024 09:14-0400 Systolic blood pressure 130 mm[Hg] Giovani Hagen MD Work Phone: [facility] 01-22-2024 13:37-0400 Diastolic blood pressure 74 mm[Hg] Darwin Matty DO Work Phone: [facility] 01-22-2024 13:37-0400 Systolic blood pressure 112 mm[Hg] Darwin Matty DO Work Phone: [facility] 01-09-2024 16:00-0400 Body height 157.5 cm Giovani Hagen MD Work Phone: [facility] 01-09-2024 16:00-0400 Body mass index (BMI) [Ratio] 34.75 kg/m2 Giovani Hagen MD Work Phone: [facility] 01-09-2024 16:00-0400 Body weight 86.18 kg Giovani Hagen MD Work Phone: [facility] 01-09-2024 16:00-0400 Diastolic blood pressure 84 mm[Hg] Giovani Hagen MD Work Phone: [facility] 01-09-2024 16:00-0400 Heart rate 96 /min Giovani Hagen MD Work Phone: [facility] 01-09-2024 16:00-0400 SaO2% (BldA) [Mass fraction] 98 % Giovani Hagen MD Work Phone: [facility] 01-09-2024 16:00-0400 Systolic blood pressure 124 mm[Hg] Giovani Hagen MD Work Phone: [facility] 12-28-2023 15:17-0400 Blood Pressure Location BHAVESH DEJESUS [facility] 12-28-2023 15:17-0400 Diastolic blood pressure 100 mm[Hg] BHAVESH DEJESUS [facility] 12-28-2023 15:17-0400 Heart rate 101 /min BHAVESH DEJESUS [facility] 12-28-2023 15:17-0400 Respiratory rate 18 /min BHAVESH DEJESUS [facility] 12-28-2023 15:17-0400 Systolic blood pressure 146 mm[Hg] BHAVESH DEJESUS [facility] 12-26-2023 15:07-0400 Body height 157.5 cm Giovani Hagen MD Work Phone: [facility] 12-26-2023 15:07-0400 Body mass index (BMI) [Ratio] 34.2 kg/m2 Giovani Hagen MD Work Phone: [facility] 12-26-2023 15:07-0400 Body weight 84.82 kg Giovani Hagen MD Work Phone: [facility] 12-26-2023 15:07-0400 Diastolic blood pressure 78 mm[Hg] Giovani Hagen MD Work Phone: [facility] 12-26-2023 15:07-0400 Heart rate 98 /min Giovani Hagen MD Work Phone: [facility] 12-26-2023 15:07-0400 SaO2% (BldA) [Mass fraction] 98 % Giovani Hagen MD Work Phone: [facility] 12-26-2023 15:07-0400 Systolic blood pressure 112 mm[Hg] Giovani Hgaen MD Work Phone: [facility] 12-19-2023 15:01-0400 Body height 157.5 cm Solo Mora MD Work Phone: [facility] 12-19-2023 15:01-0400 Body mass index (BMI) [Ratio] 34.39 kg/m2 Solo Mora MD Work Phone: [facility] 12-19-2023 15:01-0400 Body weight 85.28 kg Solo Mora MD Work Phone: [facility] 12-19-2023 15:01-0400 Diastolic blood pressure 91 mm[Hg] Solo Mora MD Work Phone: [facility] 12-19-2023 15:01-0400 Heart rate 94 /min Solo Mora MD Work Phone: [facility] 12-19-2023 15:01-0400 Systolic blood pressure 127 mm[Hg] Solo Mora MD Work Phone: [facility] 11-02-2022 13:10-0400 Body height 157.5 cm Samuel Freeman MD Work Phone: [facility] 11-02-2022 13:10-0400 Body weight 71 kg Samuel Freeman MD Work Phone: [facility] 11-02-2022 13:10-0400 Diastolic blood pressure 97 mm[Hg] Samuel Freeman MD Work Phone: [facility] 11-02-2022 13:10-0400 Heart rate 100 /min Samuel Freeman MD Work Phone: [facility] 11-02-2022 13:10-0400 Systolic blood pressure 141 mm[Hg] Samuel Freeman MD Work Phone: [facility] 08-31-2022 15:30-0400 Diastolic blood pressure 91 mm[Hg] Carol Winn MD Work Phone: [facility] 08-31-2022 15:30-0400 Heart rate 99 /min Carol Winn MD Work Phone: [facility] 08-31-2022 15:30-0400 Respiratory rate 24 /min Carol Winn MD Work Phone: [facility] 08-31-2022 15:30-0400 SaO2% (BldA) [Mass fraction] 97 % Carol Winn MD Work Phone: [facility] 08-31-2022 15:30-0400 Systolic blood pressure 140 mm[Hg] Carol Winn MD Work Phone: [facility] 08-31-2022 14:10-0400 Body height 157.5 cm Carol Winn MD Work Phone: [facility] 08-31-2022 14:10-0400 Body mass index (BMI) [Ratio] 33.84 kg/m2 Carol Winn MD Work Phone: [facility] 08-31-2022 14:10-0400 Body weight 83.92 kg Carol Winn MD Work Phone: [facility] 06-30-2022 12:40-0500 Diastolic blood pressure 85 mm[Hg] Carol Winn MD Work Phone: [facility] 06-30-2022 12:40-0500 Heart rate 70 /min Carol Winn MD Work Phone: [facility] 06-30-2022 12:40-0500 Respiratory rate 12 /min Carol Winn MD Work Phone: [facility] 06-30-2022 12:40-0500 SaO2% (BldA) [Mass fraction] 100 % Carol Winn MD Work Phone: [facility] 06-30-2022 12:40-0500 Systolic blood pressure 120 mm[Hg] Carol Winn MD Work Phone: [facility] 06-30-2022 11:18-0500 Body height 157.5 cm Carol Winn MD Work Phone: [facility] 06-30-2022 11:18-0500 Body mass index (BMI) [Ratio] 33.84 kg/m2 Carol Winn MD Work Phone: [facility] 06-30-2022 11:18-0500 Body weight 83.92 kg Carol Winn MD Work Phone: [facility] 05-27-2022 11:29-0500 Body weight 85.73 kg Carol Winn MD Work Phone: [facility] 05-27-2022 11:29-0500 Diastolic blood pressure 92 mm[Hg] Carol Winn MD Work Phone: [facility] 05-27-2022 11:29-0500 Heart rate 102 /min Carol Winn MD Work Phone: [facility] 05-27-2022 11:29-0500 Systolic blood pressure 145 mm[Hg] Carol Winn MD Work Phone: [facility] 05-03-2022 15:30-0500 Body height 158.75 cm Imad Asaad Other [employer] Other 05-03-2022 15:30-0500 Body mass index (BMI) [Ratio] 34.55 kg/m2 Imad Asaad Other [employer] Other 05-03-2022 15:30-0500 Body weight 87.09 kg Imad Asaad Other [employer] Other 05-03-2022 15:30-0500 Diastolic blood pressure 91 mm[Hg] Imad Asaad Other [employer] Other 05-03-2022 15:30-0500 Systolic blood pressure 130 mm[Hg] Imad Asaad Other [employer] Other 05-03-2022 14:47-0500 Body weight 0 kg MD Giovani Hagen Work Phone: [facility] Encounters Encounter Date Encounter Type Care Provider Facility Start: 12-31-2025 ambulatory Iliana Cramer Facility:[facility] Start: 01-22-2025 End: 01-22-2025 Refill Sandy JUSTICE Work Phone: [facility] [email or web address] [facility] Comment on above: Attention deficit hyperactivity disorder (ADHD), predominantly inattentive type; Bipolar disorder, in partial remission, most recent episode manic (HCC); Agoraphobia with panic attacks Start: 01-20-2025 ambulatory [facility] HAGEN [facility] Start: 01-18-2025 End: 01-20-2025 Refill Givoani Hagen MD Work Phone: [facility] [email or web address] [facility] Comment on above: Major depressive disorder, recurrent, mo derate (HCC) Start: 01-15-2025 End: 01-15-2025 Office outpatient visit 15 minutes Milton Fraire DPM FACFAS Work Phone: [facility] Comment on above: Other synovitis and tenosynovitis, right ankle and foot (Primary Dx); Other enthesopathy of right foot and ankle Start: 01-15-2025 End: 01-15-2025 ambulatory MILTON FRAIRE Not Available Start: 01-14-2025 End: 01-14-2025 ambulatory JATIN CABRERA Not Available Start: 01-14-2025 ambulatory IGOVANI HAGEN [facility] Start: 01-13-2025 End: 01-14-2025 Telephone encounter Giovani Hagen MD Work Phone: [facility] Start: 01-09-2025 End: 01-09-2025 Clinisync Result Encounter Giovani Hagen MD Work Phone: [facility] External Department Unsolicited Start: 01-09-2025 End: 01-09-2025 Clinisync Result Encounter Giovani Hagen MD Work Phone: [facility] External Department Unsolicited Start: 01-08-2025 End: 01-08-2025 ambulatory GIOVANI HAGEN Facility:[facility] Start: 01-06-2025 End: 01-06-2025 Bamboo flowsheet Giovani Hagen MD Work Phone: [facility] Start: 01-06-2025 End: 01-06-2025 Bamboo flowsheet Giovani Hagen MD Work Phone: [facility] Start: 01-06-2025 End: 01-06-2025 ambulatory [facility] Provider Cardiology Comment on above: Testing Start: 01-06-2025 End: 01-06-2025 Patient encounter status Giovani Hagen MD Work Phone: [facility] Work Phone: Start: 01-06-2025 End: 01-06-2025 Periodic preventive med est patient 18-39 yrs Giovani Hagen MD Work Phone: [facility] Comment on above: Well adult health check (Primary Dx); Chest pain, unspecified type; Elevated liver enzymes; Type 2 diabetes mellitus without complication, without long-term current use of insulin (HCC) Start: 12-31-2024 End: 12-31-2024 ambulatory Iliana Cramer Facility:[facility] Start: 12-31-2024 End: 12-31-2024 Patient encounter procedure Iliana Cramer [facility] Start: 12-30-2024 End: 12-30-2024 ambulatory Madhuri MISHRA Facility:[facility] Start: 12-30-2024 End: 12-30-2024 Bamboo flowsheet Milton D Dolce DPM FACFAS Work Phone: [facility] Start: 12-30-2024 End: 12-30-2024 Bamboo flowsheet Milton D Dolce DPM FACFAS Work Phone: [facility] Start: 12-30-2024 End: 12-30-2024 Office outpatient visit 15 minutes Milton D Dolce DPM FACFAS Work Phone: [facility] NMA POD Comment on above: Other synovitis and tenosynovitis, right ankle and foot (Primary Dx); Right foot pain; Other enthesopathy of right foot and ankle Start: 12-30-2024 End: 12-30-2024 ambulatory MILTON D DOLCE Not Available Start: 12-30-2024 End: 12-30-2024 Patient encounter procedure Emma Ying APRN.HIGHWAY WORKER Work Phone: Gynecology Comment on above: Chronic pelvic pain in female (Primary D x); Other specified dyspareunia; Pelvic pain in female; High-tone pelvic floor dysfunction; Vulvodynia; Stress incontinence; Irritable bowel syndrome with constipation; Vaginal dryness Start: 12-30-2024 End: 12-30-2024 ambulatory GIOVANI HAGEN Facility:[facility] Start: 12-26-2024 End: 12-26-2024 Office outpatient visit 25 minutes Jatin Cabrera MD Work Phone: [facility] Comment on above: Lumbar radiculopathy (Primary Dx); Numbness and tingling; Atypical migraine Start: 12-26-2024 End: 12-26-2024 ambulatory JATIN CABRERA Not Available Start: 12-16-2024 End: 12-16-2024 Telephone encounter Sandy JUSTICE Work Phone: [facility] Comment on above: dose correction on med Start: 12-16-2024 End: 12-16-2024 Office outpatient visit 25 minutes Giovani Hagen MD Work Phone: [facility] Comment on above: Nonalcoholic steatohepatitis (ENGLISH) ([facility] osman Dx); PTSD (post-traumatic stress disorder) ; [...] Milton Fraire DPM FACFAS Work Phone: [facility] Comment on above: Sprain of calcaneofibular ligament of ri ght ankle, initial encounter (Primary Dx); Right foot pain; Other synovitis and tenosynovitis, right ankle and foot; Other enthesopathy of right foot and ankle Start: 12-13-2024 End: 12-13-2024 ambulatory MILTON FRAIRE Not Available Start: 12-12-2024 End: 12-12-2024 Bamboo flowsheet Sandy JUSTICE Work Phone: [facility] Start: 12-12-2024 End: 12-12-2024 Bamboo flowsheet Sandy JUSTICE Work Phone: [facility] Start: 12-12-2024 End: 12-12-2024 Clinisync Result Encounter Sandy JUSTICE Work Phone: [facility] External Department Unsolicited Start: 12-12-2024 End: 12-12-2024 Office outpatient visit 25 minutes Sandy JUSTICE Work Phone: [facility] Comment on above: Elevated liver enzymes (Primary Dx); Nephrocalcinosis; Bilateral nephrolithiasis; Right ovarian cyst; Hypokalemia; Weight gain; Attention deficit hyperactivity disorder (ADHD), predominantly inattentive type ; History of alcohol dependence (HCC); Impaired fasting glucose; Other fatigue; Anxiety; Other chronic pain Start: 12-12-2024 End: 12-12-2024 ambulatory SANDY ARMENTA Not Available Start: 12-09-2024 End: 12-09-2024 ambulatory MILTON FRAIRE Not Available Start: 10-30-2024 End: 10-30-2024 Refill Sandy Bob Stephany PA Work Phone: [facility] Comment on above: Anxiety; Bipolar disorder, in partial remission, most recent episode manic (HCC) Start: 10-23-2024 End: 10-23-2024 Clinisync Result Encounter Generic External Data Provider [facility] External Department Unsolicited Start: 10-23-2024 End: 10-23-2024 Clinisync Result Encounter Generic External Data Provider [facility] External Department Unsolicited Start: 10-23-2024 ambulatory RUGEN JASMYNY HIEU Facility:[facility] Start: 10-23-2024 End: 10-23-2024 Subsequent hospital visit by physician General Iona Moreno Mc Work Phone: Radiology Comment on above: Pelvic floor dysfunction [M62.89] Start: 10-21-2024 End: 10-21-2024 Clinisync Result Encounter Shannon Darden NP Work Phone: [facility] External Department Unsolicited Start: 10-21-2024 End: 10-21-2024 Clinisync Result Encounter Shannon Darden NP Work Phone: [facility] External Department Unsolicited Start: 10-21-2024 ambulatory MARIO HARPER Facility:[facility] Start: 10-21-2024 End: 10-21-2024 Subsequent hospital visit by physician [facility] Work Phone: [facility] Radiology General Comment on above: Pelvic floor dysfunction [M62.89] Start: 10-15-2024 End: 10-15-2024 ambulatory RUGEN MABBELENY HIEU Facility:[facility] Start: 10-15-2024 End: 10-15-2024 Admission to same day surgery center Mario Harper APRN.CNP Work Phone: Colorectal Surgery Start: 10-15-2024 End: 10-15-2024 Patient encounter procedure Mario Harper APRN.HIGHWAY WORKER Work Phone: Colorectal Surgery Start: 10-11-2024 End: 10-11-2024 ambulatory Lydia Rock PT, DPT Work Phone: [facility] Start: 10-11-2024 End: 10-11-2024 Patient encounter procedure Lydia Rock PT, DPT Work Phone: [facility] Comment on above: Muscle spasm (Primary Dx); Pelvic floor dysfunction; Chronic constipation Start: 10-11-2024 End: 10-11-2024 ambulatory MARIO HARPER Facility:[facility] Start: 10-10-2024 End: 10-10-2024 Bamboo flowsheet Shannon Darden [employer] Work Phone: [facility] Start: 10-10-2024 End: 10-10-2024 Bamboo flowsheet Shannon Darden [employer] Work Phone: [facility] Start: 10-10-2024 End: 10-10-2024 Office outpatient new 45 minutes Shannon Darden [employer] Work Phone: [facility] Comment on above: Numbness and tingling (Primary Dx); Atypical migraine Start: 10-10-2024 End: 10-10-2024 ambulatory SHANNON DARDEN Not Available Start: 10-09-2024 End: 10-09-2024 Patient encounter procedure Mario Harper APRN.HIGHWAY WORKER Work Phone: Colorectal Surgery Comment on above: Pelvic floor dysfunction (Primary Dx); Chronic constipation; Gastroparesis Start: 10-09-2024 End: 10-09-2024 ambulatory KIRANARELY BOSSBELENArmando HIEU Facility:[facility] Start: 10-08-2024 End: 10-08-2024 Bamboo flowsheet Deena Lyn [employer] Work Phone: [facility] Start: 10-08-2024 End: 10-08-2024 Bamboo flowsheet Deena Lyn NP Work Phone: [facility] Start: 10-08-2024 End: 10-08-2024 Refill Deena Lyn [employer] Work Phone: [facility] Comment on above: Attention deficit hyperactivity disorder (ADHD), predominantly inattentive type ; Bipolar disorder, in partial remission, most recent episode manic (HCC); Agoraphobia with panic attacks Start: 10-08-2024 End: 10-08-2024 Office outpatient visit 25 minutes Deena Lyn NP Work Phone: [facility] Comment on [...] 09-25-2024 End: 09-25-2024 Bamboo flowsheet Deena Lyn [employer] Work Phone: [facility] Start: 09-25-2024 End: 09-25-2024 Bamboo flowsheet Deena Lyn [employer] Work Phone: [facility] Start: 09-25-2024 End: 09-25-2024 Office outpatient visit 25 minutes Deena Lyn [employer] Work Phone: [facility] Comment on [...] / Non-visit Giovani Hagen MD Work Phone: [facility] Work Phone: Start: 08-16-2024 End: 08-19-2024 Evaluation and management of inpatient Giovani Hagen MD Work Phone: [address] Work Phone: Start: 08-14-2024 End: 08-14-2024 [...] (Primary Dx) Start: 08-13-2024 End: 08-13-2024 ambulatory GIOVANI HAGEN Facility:[facility] Start: 08-13-2024 End: 08-13-2024 ambulatory GIOVANI HAGEN Facility:[facility] Start: 08-13-2024 ambulatory GIOVANI HAGEN Facility:[facility] Start: 08-01-2024 End: 08-01-2024 Office outpatient visit [...] constipation [K59.04] Start: 07-10-2024 End: 07-10-2024 ambulatory Roof Panel [facility] Work Phone: [...] [place] [facility] Start: 06-18-2024 End: 06-19-2024 Michael Armenta PA Work Phone: [facility] Comment on above: Anxiety; Bipolar disorder, in partial remission, most recent episode manic (CMS/HCC) Start: 06-12-2024 End: 06-12-2024 Telephone encounter Milton Gonzalez Corneliusbran DPM FACFAS Work Phone: [facility] [...] diff) Start: 05-22-2024 End: 05-22-2024 ambulatory GIOVANI ENRIQUE HIEU Facility:[facility] Start: 05-22-2024 End: 05-22-2024 Clinisync Result Encounter [...] 05-15-2024 Office outpatient visit 25 minutes Milton D Dolce DPM FACFAS Work Phone: [facility] Comment on above: Peroneal tendon tear, right, initial enc ounter (Primary Dx); Right foot pain; Sprain of anterior talofibular ligament of right ankle, subsequent encounter; Osteochondritis dissecans of ankle, right; Right ankle instability Start: 05-15-2024 End: 05-15-2024 ambulatory MILTON Gonzalez DOLBRAN Not Available Start: 05-14-2024 End: 05-14-2024 Transcribe Orders Rosario Mcconnell MD Work Phone: [facility] Comment on above: ENGLISH (nonalcoholic steatohepatitis) (Rosanne osman Dx) Start: 05-09-2024 End: 05-09-2024 Office outpatient visit 15 minutes Giovani Hagen MD Work Phone: [facility] Comment on above: Cervical radiculopathy due to degenerati ve joint disease of spine (Primary Dx) Start: 05-09-2024 End: 05-09-2024 Orders Only Floresleonardo Kelley DO Work Phone: Orthopaedics Comment [...] in partial remission, most recent episode manic ([facility]) Start: 05-06-2024 End: 05-06-2024 Telephone encounter Solo Mora MD Work Phone: Cardiology Comment on above: Patient Update (04/09/24 Echo Faxed) Start: 05-02-2024 End: 05-15-2024 Orders Only Iliana Mercado PA-C Work Phone: Gastroenterology Comment on above: Elevated LFTs (Primary Dx) Received images Start: 04-30-2024 End: 04-30-2024 Office outpatient visit 15 minutes Darwin Starr DO Work Phone: [facility] OB Comment on above: Pre-op evaluation; H/O female dyspareunia; Pelvic pain; Other endometriosis; H/O: hysterectomy Start: 04-30-2024 End: 04-30-2024 Preprocedural examination done Darwin Matty DO Work Phone: [facility] Healthcare Start: 04-30-2024 End: 04-30-2024 Bamboo flowsheet Darwin Matty DO Work Phone: [facility] Start: 04-30-2024 End: 04-30-2024 Bamboo flowsheet Darwin Matty DO Work Phone: [facility] OB Start: 04-30-2024 End: 04-30-2024 Refill Giovani Hagen MD Work Phone: [facility] Comment on above: Attention deficit hyperactivity disorder [...] Start: 04-26-2024 End: 04-26-2024 ambulatory GIOVANI HAGEN Facility:[facility] Start: 04-26-2024 End: 04-26-2024 Patient encounter procedure [...] Office outpatient visit 25 minutes Josephine Gilman [employer] Work Phone: [facility] Comment on above: Acute bronchitis with asthma (CMS/HCC) ( Primary Dx) Start: 04-16-2024 End: 04-16-2024 ambulatory GIOVANI HAGEN Not Available Start: 04-09-2024 End: 04-09-2024 ambulatory SOLO MORA Facility:[facility] Start: 04-05-2024 End: 04-09-2024 ambulatory [facility] Provider Cardiology Comment on above: Surgical Clearance Start: 04-05-2024 End: 04-05-2024 Telephone encounter Solo Mora MD Work Phone: Cardiology Comment on above: Received Outside Medical Records (Cardio Clearance [facility]) Start: 04-03-2024 End: 04-03-2024 ambulatory DEENA LYN Not Available Start: 04-03-2024 End: 04-03-2024 Office outpatient visit 25 minutes Deena Lyn [employer] Work Phone: [facility] Comment on above: Hypokalemia (Primary Dx); Elevated blood sugar; Pre-operative clearance; Acute pain of left shoulder; Obesity (BMI 35.0-39.9 without comorbidity) Start: 04-03-2024 End: 04-03-2024 Preoperative state Deena Lyn [employer] Work Phone: [facility] Start: 04-02-2024 End: 04-02-2024 Telephone encounter Solo Mora MD Work Phone: Cardiology Comment on above: Received Outside Medical Records ([facility]) Start: 04-01-2024 End: 04-01-2024 ambulatory GIOVANI HAGEN [...] Start: 03-19-2024 End: 03-19-2024 ambulatory Anitra Lry PICK UP OPERATOR [facility] Comment on above: Cervical radiculopathy (Primary Dx) Start: 03-11-2024 End: 03-11-2024 ambulatory Arun Hernadez PICK UP OPERATOR [facility] Comment on above: Cervical radiculopathy (Primary Dx) Start: 03-11-2024 End: 03-11-2024 Bamboo flowsheet Arun Hernadez PICK UP OPERATOR [facility] Start: 03-11-2024 End: 03-11-2024 Bamboo flowsheet Arun Hernadez PICK UP OPERATOR [facility] Start: 03-07-2024 End: 03-07-2024 Michael Hagen MD Work Phone: [facility] Comment on above: Obesity (BMI 35.0-39.9 without comorbidi ty) Start: 03-06-2024 End: 03-07-2024 ambulatory Arun Hernadez PICK UP OPERATOR [facility] Comment on above: Cervical radiculopathy (Primary Dx) Anxiety; Bipolar disorder, in partial remission, most recent episode manic ([facility]) Start: 02-29-2024 End: 02-29-2024 ambulatory Anitra Bainbley PICK UP OPERATOR [facility] Comment on above: Cervical radiculopathy (Primary Dx) Start: 02-29-2024 End: 02-29-2024 Bamboo flowsheet Anitra Odellbley PICK UP OPERATOR [facility] Start: 02-29-2024 End: 02-29-2024 Bamboo flowsheet Anitra Kelbley PICK UP OPERATOR [facility] Start: 02-27-2024 End: 02-27-2024 ambulatory Anitra Kelbley PICK UP OPERATOR [facility] Comment on above: Cervical radiculopathy (Primary Dx) Start: 02-27-2024 End: 02-27-2024 Bamboo flowsheet Anitra Kelbley PICK UP OPERATOR [facility] Start: 02-27-2024 End: 02-27-2024 Bamboo flowsheet Anitra Ricci PICK UP OPERATOR [facility] Start: 02-20-2024 End: 02-20-2024 Refill Audrey Perez DATA ENTRY MACHINE OPERATOR [facility] Comment on above: Attention deficit hyperactivity disorder (ADHD), predominantly inattentive type (CMS/HCC) Start: 02-14-2024 End: 02-15-2024 ambulatory Arun Brink PICK UP OPERATOR [facility] Comment on above: Cervical radiculopathy (Primary Dx) Start: 02-14-2024 End: 02-14-2024 Bamboo flowsheet Arun Brink PICK UP OPERATOR [facility] Start: 02-14-2024 End: 02-14-2024 Bamboo flowsheet Arun Brink PICK UP OPERATOR [facility] Start: 02-12-2024 End: 02-12-2024 ambulatory Zhen Burgess PT Work Phone: [facility] Comment on above: Cervical radiculopathy (Primary Dx) Start: 02-12-2024 End: 02-12-2024 Bamboo flowsheet Zhen Valentinton PT Work Phone: [facility] Start: 02-12-2024 End: 02-12-2024 Bamboo flowsheet Zhen Valentinton PT Work Phone: [facility] Start: 02-07-2024 End: 02-07-2024 ambulatory Arun Brink PICK UP OPERATOR [facility] Comment on above: Cervical radiculopathy (Primary Dx) Start: 02-07-2024 End: 02-07-2024 Bamboo flowsheet Arun Brink PICK UP OPERATOR [facility] Start: 02-07-2024 End: 02-07-2024 Bamboo flowsheet Arun Brink PICK UP OPERATOR [facility] Start: 02-06-2024 End: [...] PT Initial Eval (Tried to contact to [facility] PT Eval for cervical radiculopathy; but had to lm requesting call back.); Call Back (She contacted and we scheduled PT Eval 02/04 w/ Zhen Burgess, PT.) Start: 01-22-2024 End: 01-22-2024 Office outpatient visit 15 minutes Darwin Mattytina CASTANEDA Work Phone: [facility] Comment on above: Dyspareunia in female; Urethral pain Start: 01-09-2024 End: 01-09-2024 Office outpatient visit 25 minutes Giovani Hagen MD Work Phone: [facility] Comment on above: Cervical radiculopathy (Primary Dx); Attention deficit hyperactivity disorder (ADHD), predominantly inattentive type (CMS/HCC); Anxiety; Bipolar disorder, in partial remission, most recent episode manic (CMS/HCC) Start: 01-08-2024 End: 01-08-2024 Telephone encounter Giovani Hagen MD Work Phone: [facility] Comment on above: Med Refill Start: 12-28-2023 End: 12-28-2023 Patient encounter procedure BHAVESH DEJESUS [facility] Start: 12-28-2023 End: 12-29-2023 ambulatory [facility] Provider Cardiology Comment on above: [employer] Start: 12-26-2023 End: 12-26-2023 Office outpatient visit 25 minutes Giovani Hagen MD Work Phone: [facility] Comment on above: Cervical radiculopathy (Primary Dx); Acute nonintractable headache, unspecified headache type; Nausea and vomiting, unspecified vomiting type Start: 12-19-2023 End: 12-21-2023 Orders Only Solo Mora MD Work Phone: Cardiology Comment on above: Syncope and collapse (Primary Dx) Event (ZIO PATCH) Syncope, unspecified syncope type (Primary Dx) Start: 12-18-2023 End: 02-01-2024 Telephone encounter Benito Kendrick [facility] Comment on above: Lab results [...] End: 03-24-2023 Evaluation and management of inpatient [facility] Start: 03-20-2023 ambulatory Carol Winn MD [...] 10-26-2022 ambulatory MD Giovani Hagen Work Phone: [facility] Work Phone: Start: 10-26-2022 End: 10-26-2022 Patient encounter procedure MD Giovani Hagen Work Phone: [facility]-Ultrasound [facility] [place] Work Phone: Start: 10-18-2022 ambulatory Maria Dolores Corey DO Work Phone: Gastroenterology Start: 10-18-2022 Telephone encounter Maria Dolores Corey DO Work Phone: Gastroenterology Comment on above: Medication Preauthorization ([employer]) Results Start: 10-17-2022 End: 10-17-2022 Patient encounter procedure [facility]rogastrogram [facility] Work Phone: Gastroenterology Comment on above: Gastroparesis (Primary Dx) Start: 09-12-2022 End: 09-12-2022 Subsequent hospital visit by physician [facility] Work Phone: [facility] Radiology Molecular Comment on above: Nausea [R11.0] Start: 08-31-2022 End: 08-31-2022 Subsequent hospital visit by physician Carol Winn MD Work Phone: Ambulatory Surgery Comment on above: PUD (peptic ulcer disease) [K27.9] Start: 08-24-2022 Telephone encounter Nurse [facility] Work Phone: Gastroenterology Comment on above: Appointment Start: 07-08-2022 End: 07-08-[address] MADHURI MISHRA . Facility:[facility] Start: 07-06-2022 End: 07-07-[address] MADHURI MISHRA . Facility:[facility] Start: 07-05-2022 End: 07-05-2022 Patient encounter procedure Madhuri MISHRA [facility] Start: 07-04-2022 Orders Only Carol Winn MD Work Phone: Gastroenterology Start: 06-30-2022 End: 06-30-2022 Subsequent hospital visit by physician Carol Winn MD Work Phone: Ambulatory Surgery Comment on above: Bilious vomiting with nausea [R11.14] Start: 06-29-2022 End: 06-30-[address] MADHURI MISHRA . Facility:[facility] Start: 06-29-2022 End: 06-29-2022 Lab Drop off Madhuri MISHRA [facility] Start: 06-23-2022 ambulatory Carol Winn MD Work Phone: Gastroenterology Comment on above: EGD instructions Start: 06-23-2022 E-mail encounter from caregiver Carol Winn MD Work Phone: [facility] Start: 06-16-2022 ambulatory [facility] Provider Gastroenterology Comment on above: Question regarding US ABD RT UPPER QUADR ANT Start: 06-15-2022 End: 06-15-2022 Subsequent hospital visit by physician [facility] Work Phone: [facility] Radiology Ultrasound Comment on above: Liver lesion [K76.9] Start: 06-14-2022 Orders Only Carol Winn MD Work Phone: Ambulatory Surgery Comment on above: Liver lesion (Primary Dx) Results Start: 06-10-2022 ambulatory Diamond Pycraft RT(R) Radiology Ct Scan Comment on above: Radiology CT Start: 06-10-2022 Patient encounter procedure Diamond Pycraft RT(R) [facility] [place] Start: 06-10-2022 End: 06-10-2022 Subsequent hospital visit by physician Ct Prep [facility] Cc Radiology Ct Scan Comment on above: Bilious vomiting with nausea [R11.14] Start: 05-27-2022 End: 05-27-2022 Subsequent hospital visit by physician [facility] Work Phone: [facility] Radiology General Comment on above: SOB (shortness of breath) [R06.02] Start: 05-27-2022 End: 05-27-2022 Patient encounter procedure Carol Winn MD Work Phone: Gastroenterology Comment on above: Fatty liver (Primary Dx); Bilious vomiting with nausea; Right sided abdominal pain; Nausea; History of diverticulitis; SOB (shortness of breath) Start: 05-13-2022 End: 05-13-2022 ambulatory MD Giovani Hagen Work Phone: [facility] Work Phone: Start: 05-13-2022 End: 05-13-2022 Patient encounter procedure MD Giovani Hagen Work Phone: [facility] Ctr-Digestive Health Work Phone: Start: 05-03-2022 End: 05-04-2022 ambulatory [employer] Other Start: 05-03-2022 Office consultation new/estab patient 60 min Imad Asaad [facility] Start: 04-20-2022 End: 04-20-[address] AURORA IRBY . Facility:[facility]1 Start: 04-06-2022 End: 04-07-[address] GIOVANI HAGEN Facility:[facility]1 Start: 12-21-2021 End: 12-22-[address] AURORA IRBY . Facility:[facility]1 Start: 12-10-2021 End: 12-10-2021 Subsequent hospital visit by physician [facility] Ultrasound Comment on above: Elevated LFTs [...] Start: 11-06-2018 End: 11-09-2018 Patient encounter procedure [facility] Procedures Date Procedure Procedure Detail Performing Clinician Start: 01-09-2025 ALL CBC WITH AUTO DIFF Giovani Hagen MD Work Phone: Start: 12-13-2024 Radex foot complete minimum 3 views Milton Fraire DPM FACFAS Work Phone: Start: 12-12-2024 MLR HEMOGLOBIN A1C Sandy JUSTICE Work Phone: Start: 10-23-2024 Radiologic exam abdomen 1 view Mario Harper APRN.HIGHWAY WORKER Work Phone: Start: 10-23-2024 XR ABDOMEN 1V SUPINE Generic External Data Provider Start: 10-21-2024 MRI HEAD/BRAIN WO/W CONTR Shannon Darden LASTER HAND Work Phone: Start: 10-15-2024 [facility] ANORECTAL MANOMETRY Mario Harper APRN.HIGHWAY WORKER Work Phone: Start: 07-10-2024 Us pelvic nonobstetric real-time image complete Javy Boudreaux MD Work Phone: Start: 07-03-2024 Radex ankle complete minimum 3 views Milton Fraire DPM FACFAS Work Phone: Start: 06-25-2024 RECURRENT VAGINITIS (HTRX) Darwin Drew Work Phone: Start: 05-27-2024 MLR HEMOGLOBIN A1C Darwin Mcleodo DO Work Phone: Start: 05-23-2024 ALL CBC [...] Start: 05-08-2024 ALL CBC WITH AUTO DIFF Darwinarmando Mcleodo DO Work Phone: Start: 05-02-2024 End: 05-02-2024 Liver elastography w/o imag w/i&r Iliana Mercado PA-C Work Phone: Start: 04-26-2024 [facility] CBC W AUTO DIFF BLD Generic External Data Provider Start: 03-20-2024 IGP,APTIMA HPV,AGE GDLN Darwin Mcleodo DO Work Phone: Start: 12-13-2023 ALL CBC [...] DTaP,Tdap,Td Vaccine (7 - Td or Tdap) [facility] Start: 04-16-2025 Hemoglobin A1c measurement Diabetes: Hemoglobin A1C [facility] Start: 03-18-2025 End: 03-18-2025 Patient encounter procedure 03/18/2025 9:00 AM EST Office Visit [facility] [place] [facility] [address] [facility] 110 [place] [phone] Giovani Hagen MD 112 [facility] 110 [place], [place] [phone] [facility] [place] [facility] Start: 02-28-2025 End: 02-28-2025 Patient encounter procedure 02/28/2025 9:00 AM EST Office Visit [facility] [address] [facility] [address] [place] [address] Jatin Cabrera MD 9632 [facility] [address] [address] [facility] Start: 02-27-2025 End: 02-27-2025 Patient encounter procedure 02/27/2025 3:00 PM EST Procedure Visit [facility] Bartolome S[facility]TON [address] [facility] [place] [address] Ayleen Krishnamurthy PA [address] [facility] [address] [place], [place] [phone] [facility] Start: 02-12-2025 End: 02-12-2025 Patient encounter procedure 02/12/2025 4:40 PM EDT Office Visit [facility] [address] [facility] [address] Milton Fraire, DPM FACFAS [address] [facility] [place] [address] [facility] Start: 01-20-2025 End: 01-20-2025 Clinical Support 01/20/2025 4:00 PM EDT Clinical Support [facility] [place] [facility] [address] [place] [address] [place] [address] [facility] [place] [facility] Start: 01-15-2025 End: 01-15-2025 Clinical Support 01/15/2025 4:00 PM EDT Clinical Support [facility] [address] [facility] [address] Milton Fraire, DPM FACFAS [address] [facility] [place] [address] [facility] Start: 01-14-2025 End: 01-14-2025 Professional / ancillary services management 01/14/2025 6:00 PM EDT Ancillary Procedure [facility] [address] [facility] [facility] [place] [address] [facility] Start: 12-30-2024 End: 12-30-2024 Clinical Support NOM[facility] [...] [facility] [place] [facility] [address] [place] [address] [place] [address] Giovani Hagen MD [address] [facility] 110 [place] [address] [facility] Start: 12-13-2024 End: 12-13-2024 Patient encounter procedure 12/13/2024 9:40 AM EDT Office Visit [facility] [address] [facility] [address] Milton Fraire, DPM FACFAS 368 [facility] [place] [address] [facility] NMA P[facility] Start: 12-12-2024 End: 12-12-2024 Patient encounter procedure 12/12/2024 10:30 AM EDT Office [facility] [place] [facility] 112 [facility] 110 [place] [address] Sandy Armenta PA 112 [facility] 110 [place] [address] Elevated liver enzymes (Primary Dx); Nephrocalcinosis; Bilateral nephrolithiasis; Right ovarian cyst; Hypokalemia [facility] [place] [facility] Comment on above: Elevated liver enzymes (Primary Dx); Nephrocalcinosis; Bilateral nephrolithiasis; Right ovarian cyst; Hypokalemia Start: 11-18-2024 End: 11-18-2024 Patient encounter procedure 11/18/2024 12:00 PM EDT Procedure Visit [facility] [address] [place] [address] [place] [address] [facility] Start: 11-04-2024 End: 11-04-2024 Patient encounter procedure 11/04/2024 2:00 PM EDT Office Visit Gynecology [address] [place] [address] Emma Ying, WEIGHER BULKER.HIGHWAY WORKER [address] JUAN ME/A[address] [place] [address] Other specified dyspareunia Gynecology Comment on above: Other specified dyspareunia Start: 10-29-2024 End: 10-29-2024 Patient encounter procedure 10/29/2024 10:00 AM EDT Procedure Visit [facility] NEURO [address] [place] [phone] [facility] NEURO 210 Start: 10-15-2024 End: 10-15-2024 Admission to same day surgery center 10/15/2024 10:30 AM EDT Procedure Colorectal Surgery LUCHO FULLER [facility] [address] [place], [place] [phone] Mario Harper APRN.HIGHWAY WORKER [address] [place] [address] manometry Colorectal Surgery Comment on above: manometry Start: 10-10-2024 End: 10-10-2025 EMG 1 Extreme[facility] EMG 1 [facility] Neurology Routine Numbness and tingling Expected: 10/10/2024 (Approximate), Expires: 10/10/2025 [facility] Comment on above: Expected: 10/10/2024 (Approximate), Expi res: 10/10/2025 Start: 10-10-2024 End: 10-10-2025 MR Brain WO and W contrast IV MR brain w and wo contrast routine Imaging Routine Numbness and tingling Atypical migraine Expected: 10/10/2024 (Approximate), Expires: 10/10/2025 [facility] Work Phone: Comment on above: Expected: 10/10/2024 (Approximate), Expi res: 10/10/2025 Start: 10-10-2024 End: 10-10-2024 Patient encounter procedure [facility] NEURO 210 Comment on above: Arrived Start: 09-25-2024 End: 09-25-2024 Patient encounter procedure 09/25/2024 10:30 AM EDT Office Visit [facility] [address] [facility] 110 [place] [phone] Deena Lyn, LASTER HAND [address] [facility] 110 [place] [address] Arrived [facility] CI [facility] Comment on above: Arrived Start: 09-17-2024 End: 09-17-2024 Patient encounter procedure [facility] Comment on above: Arrived Start: 09-04-2024 End: 09-04-2024 Patient encounter procedure 09/04/2024 4:40 PM EDT Office Visit [facility] NMA POD [address] [place] [address] Milton Fraire, DPM FACFAS [address] [place] [address] [facility] NMA POD Start: 09-02-2024 End: 09-02-2024 Patient encounter procedure 09/02/2024 3:00 PM EDT Office Visit [facility] [address] [facility] 110 [place] [address] Giovani Hagen MD [address] [facility] 110 [place] [address] [facility] Start: 08-21-2024 End: 08-21-2024 Patient encounter procedure 08/21/2024 4:00 PM EDT Office Visit [facility] NMA POD [address] [place] [address] Milton Fraire, DPM FACFAS [address] [place] [address] [facility] NMA POD Start: 08-19-2024 [facility] Start: 08-16-2024 Hospital admission [facility] Start: 08-16-2024 [facility] Start: 08-14-2024 End: 08-14-2024 Patient encounter procedure 08/14/2024 4:10 PM EDT Office Visit [facility] NMA POD [address] [place] [address] Milton Fraire, DPM FACFAS [address] [place] [address] [facility] NMA POD Start: 08-13-2024 End: 08-13-2024 Patient encounter procedure 08/13/2024 2:30 PM EDT Office Visit Cardiology [address] [place] [address] Solo Mora MD [address] [place] [address] Dx: Syncope, unspecified syncope type [R55] Cardiology Comment on above: Dx: Syncope, unspecified syncope type [R 55] Start: 08-13-2024 End: 08-13-2024 Patient encounter procedure 08/13/2024 12:30 PM EDT Office Visit Cardiology [address] [place] [address] Dx: Syncope, unspecified syncope type [R55] Cardiology Comment on above: Dx: Syncope, unspecified syncope type [R 55] Start: 08-13-2024 End: 08-13-2024 Patient encounter procedure 08/13/2024 10:30 AM EDT Office Visit Cardiology [address] [place] [address] Dx: Syncope, unspecified syncope type [R55] Cardiology Comment on above: Dx: Syncope, unspecified syncope type [R 55] Start: 08-01-2024 End: 08-01-2024 Patient encounter procedure 08/01/2024 2:30 PM EDT Office Visit [facility] [address] [facility] 110 [place] [address] Giovani Hagne MD [address] [facility] 110 [place] [address] [facility] CI FM Start: 07-26-2024 End: 07-26-2024 ambulatory 07/26/2024 8:40 AM EDT [facility] Gastroenterology [address] [place] [address] [place] [address] [place] [address] Elevated LFT, per Pt Gastroenterology Comment on above: Elevated LFT, per Pt Start: 07-24-2024 End: 07-24-2024 Patient encounter procedure 07/24/2024 3:50 PM EDT Office Visit [facility] NMA POD [address] [place] [address] Milton Fraire, DPM FACFAS [address] [facility] [place] [address] [facility] NMA POD Start: 07-04-2024 End: 07-04-2024 Patient encounter procedure 07/04/2024 3:30 PM EDT Office Visit [facility] CI FM [address] [facility] 110 [place] [address] Giovani Hagen MD [address] [place] [address] [place] [address] [facility] Start: 07-03-2024 End: 07-03-2024 Patient encounter procedure 07/03/2024 2:20 PM EDT Office Visit [facility] NMA POD [address] [place] [address] Milton Fraire, DPM FACFAS [address] [facility] [place] [address] [facility] NMA POD Start: 07-02-2024 Hemoglobin A1c measurement Diabetes: Hemoglobin A1C [facility] Start: 06-26-2024 End: 06-26-2024 Patient encounter procedure 06/26/2024 2:50 PM EST Office Visit [facility] NMA POD [address] [place] [address] Milton Fraire, DPM FACFAS [address] [facility] [place] [address] [facility] NMA POD Start: 06-25-2024 End: 06-25-2024 Patient encounter procedure [facility] B[facility] OB Comment on above: Arrived Start: 06-24-2024 End: 06-24-2024 Patient encounter procedure 06/24/2024 10:40 AM EST Office Visit [facility] NMA POD [address] [place] [address] Milton Fraire, DPM FACFAS [address] [facility] [place] [address] [facility] NMA POD Start: 06-19-2024 End: 06-19-2024 Patient encounter procedure [facility] SC POD Comment on above: Arrived Start: 06-17-2024 End: 06-17-2024 Patient encounter procedure 06/17/2024 10:30 AM EST Office Visit Orthopaedics [address] [place] [address] Naren Verdugo PA-C [address] [place] [phone] 1st post op Rt ankle arthroscopy/internal brace 06/04/24 Orthopaedics Comment on above: 1st post op Rt ankle arthroscopy/interna l brace 06/04/24 Start: 06-12-2024 End: 06-12-2024 ambulatory 06/12/2024 1:45 PM EST Results Only Cardiology [address] [place] [address] Dx: Syncope, unspecified syncope type [R55] Cardiology Comment on above: Dx: Syncope, unspecified syncope type [R 55] Start: 06-12-2024 End: 06-12-2024 Patient encounter procedure Cardiology Comment on above: Dx: Syncope, unspecified syncope type [R 55] Start: 06-10-2024 End: 06-10-2024 Patient encounter procedure 06/10/2024 9:40 AM EST Appointment [facility] [address] [place] [address] Rosario Mcconnell I, MD [address] [facility] 200 [place] [address] [facility] Comment on above: [facility] Start: 06-04-2024 End: 06-04-2024 Patient encounter procedure 06/04/2024 9:40 AM EST Office Visit [facility] NMA POD [address] [place] [address] Milton Fraire, DPM FACFAS [address] [place] [address] [facility] NMA P[facility] Start: 06-04-2024 End: 06-04-2024 Admission to same day surgery center 06/04/2024 7:30 AM EST - 06/04/2024 10:10 AM EST Surgery [facility] Surgery [address] [place] [address] Lydia Kelley DO [address] [place] [address] REPAIR ANKLE LIGAMENT SECONDARY DISRUPTED, COLLATERAL [facility] Comment on above: REPAIR ANKLE LIGAMENT SECONDARY DISRUPTE D, COLLATERAL Start: 06-04-2024 End: 06-04-2024 Repair secondary disrupted ligament ankle coltrl REPAIR ANKLE LIGAMENT SECONDARY DISRUPTED, COLLATERAL Right ankle instability 06/04/2024 7:30 AM EST ME OR Start: 06-04-2024 Subsequent hospital visit by physician 06/04/2024 7:30 AM EST Hospital Encounter [facility] Surgery [address] [place] [address] Lydia Kelley DO [address] [facility] [address] 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] [facility] Surgery Comment on above: 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] Start: 05-31-2024 End: 05-31-2024 ambulatory 05/31/2024 1:15 PM EST [facility] Orthopaedics [address] [address] Lydia Kelley DO [address] [facility] [address] 4 week f/u, right ankle Orthopaedics Comment on above: 4 week f/u, right ankle Start: 05-31-2024 End: 05-31-2024 Patient encounter procedure 05/31/2024 9:45 AM EST Office Visit Orthopaedics [address] [facility] [address] [place] [address] Lydia Kelley DO [address] [place] [address] 4 week f/u, right ankle Orthopaedics Comment on above: 4 week f/u, right ankle Start: 05-29-2024 End: 05-29-2024 Patient encounter procedure [facility] Comment on above: Arrived Start: 05-22-2024 End: 05-22-2024 Patient encounter procedure 05/22/2024 2:30 PM EST Appointment Ambulatory Surgery [address] [place] [address] [place] [address] [place] [address] BRBPR (bright red blood per rectum) [K62.5] Ambulatory Surgery Comment on above: BRBPR (bright red blood per rectum) [K62 .5] Start: 05-15-2024 End: 05-15-2024 Patient encounter procedure [facility] NMA POD Comment on above: Arrived Start: 05-08-2024 End: 05-08-2024 Patient encounter procedure 05/08/2024 3:10 PM EST Office Visit [facility] SC P[facility] [address] [place] [address] Prateek Pedraza DPM [address] [address] [facility] Start: 05-05-2024 End: 05-05-2024 Anesthesia consultation 05/05/2024 11:59 PM EST Anesthesia Event Ambulatory Surgery [address] [place] [address] Sharla Bonds APRN.JACK SPINNER [address] [place] [address] Ambulatory Surgery Start: 05-02-2024 End: 05-02-2024 ambulatory 05/02/2024 12:00 PM EST Procedure Gastroenterology [address] [place] [address] fibroscan Gastroenterology Comment on above: fibroscan Start: 05-01-2024 End: 05-01-2024 Patient encounter procedure 05/01/2024 4:30 PM EST Office Visit [facility] SC [facility] [address] [place] [address] Prateek Pedraza DPM [address] [address] [facility] Start: 04-30-2024 End: 04-30-2024 Patient encounter procedure [facility] Comment on above: Arrived Start: 04-26-2024 End: 04-26-2024 Patient encounter procedure 04/26/2024 3:05 PM EST Office Visit Gastroenterology [id number] [place] [address] Iliana Mercado PA-C [phone] [place] [address] Elevated LFT, per Pt Gastroenterology Comment on above: Elevated LFT, per Pt Start: 04-26-2024 End: 07-26-2024 Alpha 1 antitrypsin [Mass/volume] in Serum or Plasma [facility] Comment on above: Expected: 04/26/2024, Expires: Start: 04-26-2024 End: 07-26-2024 Xtnhg-[id number] [Mass/volume] in Serum or Plasma [facility] Work Phone: Comment on above: Expected: 04/26/2024, Expires: Start: 04-26-2024 End: 07-26-2024 DENY BY IFA WITH REFLEX [facility] Comment on above: Expected: 04/26/2024, Expires: Start: 04-26-2024 End: 07-26-2024 Ceruloplasmin [Mass/volume] in Serum or Plasma [facility] Comment on above: Expected: 04/26/2024, Expires: Start: 04-26-2024 End: 07-26-2024 Hepatitis A virus IgM Ab [Presence] in Serum [facility] Comment on above: Expected: 04/26/2024, Expires: Start: 04-26-2024 End: 07-26-2024 Hepatitis B virus core IgM Ab [Presence] in Serum [facility] Comment on above: Expected: 04/26/2024, Expires: Start: 04-26-2024 End: 07-26-2024 Hepatitis B virus surface Ag [Presence] in Serum [facility] Comment on above: Expected: 04/26/2024, Expires: Start: 04-26-2024 End: 07-26-2024 Hepatitis C virus Ab [Presence] in Serum [facility] Comment on above: Expected: 04/26/2024, Expires: Start: 04-26-2024 End: 07-26-2024 Mitochondria Ab [Presence] in Serum by Immunofluorescence [facility] Comment on above: Expected: 04/26/2024, Expires: Start: 04-26-2024 End: 07-26-2024 Smooth muscle Ab [Presence] in Serum [facility] Comment on above: Expected: 04/26/2024, Expires: Start: 04-03-2024 End: 04-03-2025 Hemoglobin A1c/Hemoglobin.total in Blood Hemoglobin A1c Lab Routine Elevated blood sugar Expected: 04/03/2024 (Approximate), Expires: 04/03/2025 [facility] Comment on above: Expected: 04/03/2024 (Approximate), Expi res: 04/03/2025 Start: 04-03-2024 End: 04-03-2025 MR Shoulder - left WO contrast MR shoulder left wo IV contrast Imaging Routine Acute pain of left shoulder Expected: 04/03/2024, Expires: 04/03/2025 [facility] Comment on above: Expected: 04/03/2024, Expires: Start: 04-03-2024 End: 04-03-2025 Potassium [Moles/volume] in Serum or Plasma Potassium Lab Routine Hypokalemia Expected: 04/03/2024 (Approximate), Expires: 04/03/2025 [facility] Work Phone: Comment on above: Expected: 04/03/2024 (Approximate), Expi res: 04/03/2025 Start: 04-01-2024 End: 04-01-2024 Patient encounter procedure 04/01/2024 8:30 AM EST Office Visit [facility] [address] [place] [address] [place] [address] Giovani Hagen MD [address] [place] [address] [facility] Start: 03-27-2024 End: 03-27-2024 ambulatory 03/27/2024 4:00 PM EST Treatment [facility] PT [address] [place] [address] Zhen Burgess, PT [address] [place] [address] [facility] Start: 03-25-2024 End: 03-25-2024 ambulatory 03/25/2024 4:00 PM EST Treatment [facility] [address] [place] [address] Arun Hernadez, PICK UP OPERATOR [facility] Start: 03-20-2024 End: 03-20-2024 Patient encounter procedure 03/20/2024 4:00 PM EST Office Visit [facility] [address] [place] [phone] Darwin Starr, DO [address] [place], [place] [phone] [facility] Start: 03-19-2024 End: 03-19-2024 ambulatory 03/19/2024 4:00 PM EST Treatment [facility] [address] [place] [address] Anitra Ricci, PICK UP OPERATOR [facility] Start: 03-13-2024 End: 03-13-2024 ambulatory 03/13/2024 4:30 PM EST Treatment [facility] [address] [facility] [address] [place] [address] BarbieZhen garcia, PT [address] [facility] [place] [address] [facility] Start: 03-11-2024 End: 03-11-2024 ambulatory [facility] Comment on above: Arrived Start: 03-06-2024 End: 03-06-2024 ambulatory [facility] Start: 03-04-2024 End: 03-04-2024 ambulatory 03/04/2024 9:00 AM EST Treatment [facility] PT [address] [facility] [address] [place] [address] Arun Hernadez PTA [facility] Start: 02-29-2024 End: 02-29-2024 ambulatory [facility] Comment on above: Arrived Start: 02-27-2024 End: 02-27-2024 ambulatory [facility] Comment on above: Arrived Start: 02-21-2024 End: 02-21-2024 ambulatory 02/21/2024 4:30 PM EDT Treatment [facility] [address] [facility] [place] [place] [address] Anitra Ricci PICK UP OPERATOR [facility] Start: 02-14-2024 End: 02-14-2024 ambulatory [facility] Start: 02-13-2024 End: 02-13-2024 Patient encounter procedure Cardiology Comment on above: Dx: Syncope, unspecified syncope type [R 55] Start: 02-13-2024 End: 02-13-2024 ambulatory 02/13/2024 2:00 PM EDT Results Only Cardiology [address] [place] [address] Dx: Syncope, unspecified syncope type [R55] Cardiology [...] EDT Office Visit [facility] [address] [facility] [place] [address] Darwin Starr DO [address] [facility] [place] [address] [facility] Start: 01-09-2024 End: 01-09-2024 Patient encounter procedure 01/09/2024 4:00 PM EDT Office Visit [facility] [address] [facility] [address] [place] [address] Giovani Hagen MD [address] [facility] [address] [place] [address] [facility] Start: 01-09-2024 End: 01-08-2025 [...] 01/09/2024, Expires: 5 Start: 12-24-2023 Covid-19 Vaccine () Covid-19 Vaccine () [facility] Start: 12-24-2023 Covid-19 Vaccine () Covid-19 Vaccine () [facility] Start: 12-24-2023 Influenza vaccination [facility] Start: 12-19-2023 End: 12-19-2023 ambulatory 12/19/2023 2:15 PM EDT Results Only Cardiology [address] [place] [address] Exertional Syncope. Referring: Dr. Shilo Dillon Cardiology Comment on above: Exertional Syncope. Referring: Dr. Shilo Dillon Start: 12-19-2023 End: 12-19-2023 Patient encounter procedure Cardiology Comment on above: Exertional Syncope. Referring: Dr. Shilo Dillon Start: 06-06-2023 Urine screening for protein Diabetes: Urine Protein Screening [facility] Start: 04-24-2023 Behavioral Health Screening Behavioral Health Screening [facility] Start: 12-23-2022 Covid-19 Vaccine () Covid-19 Vaccine () [facility] Start: 12-23-2022 Influenza vaccination [facility] Start: 05-13-2022 [facility] Start: 04-24-2022 DEPRESSION ASSESSMENT DEPRESSION ASSESSMENT [facility] Start: 12-28-2021 COVID-19 VACCINE (4 - Booster for Pfizer series) COVID-19 VACCINE (4 - Booster for Pfizer series) [facility] Start: 12-28-2021 COVID-19 VACCINE (4 - Pfizer series) COVID-19 VACCINE (4 - Pfizer series) [facility] Start: 12-23-2021 Influenza vaccination INFLUENZA (#1) [facility] Start: 02-06-2020 Urine microalbumin profile DTaP,Tdap,Td Vaccine (6 - Td or Tdap) [facility] Start: 2018 HPV TESTING HPV TESTING [facility] Start: 2009 PAP TESTING PAP TESTING [facility] Start: 2009 Screening for malignant neoplasm of cervix Cervical Cancer Screening [facility] Start: 09-29-2007 Urine microalbumin profile DTAP,TDAP,TD (1 - Tdap) [facility] Start: 11-30-2006 HPV Vaccine (2 - 3-dose series) HPV Vaccine (2 - 3-dose series) [facility] Start: 2006 Anxiety Screening Anxiety Screening [facility] Start: 2006 Depression Screening Depression Screening [facility] Start: 2006 HEPATITIS C SCREENING HEPATITIS C SCREENING [facility] Start: 2006 Hepatitis C screening Hepatitis C Screening [facility] Start: 2006 HIV SCREENING HIV SCREENING [facility] Start: 2006 HIV screening HIV Screening [facility] Start: 1998 Glaucoma screening Diabetes: Retinopathy Screening [facility] Start: 1988 HEPATITIS B (1 of 3 - 3-dose series) HEPATITIS B (1 of 3 - 3-dose series) [facility] 25-hydroxyvitamin D3 [Mass/volume] in Serum or Plasma Vitamin D 25 hydroxy Total Lab Routine Weight gain Ordered: 12/12/2024 [facility] Comment on above: Ordered: 12/12/2024 Actin smooth muscle IgG Ab [Units/volume] in Serum [facility] End: 10-09-2025 [place]ULT [place] ANORECTAL MANOMETRY ADULT [place] ANORECTAL MANOMETRY Endoscopy Routine Pelvic floor dysfunction Chronic constipation 1 Occurrences starting 10/09/2024 until 10/09/2025 [facility] Work Phone: Comment on above: 1 Occurrences starting 10/09/2024 until 10/09/2025 [facility] ANORECTAL MANOMETRY [facility] ANORECTAL MANOMETRY Endoscopy Routine Pelvic floor dysfunction Chronic constipation 10/15/2024 [facility] Work Phone: Alpha 1 antitrypsin [Mass/volume] in Serum or Plasma [facility] Alpha 1 antitrypsin phenotyping [Identifier] in Serum or Plasma by Immunofixation [facility] CBC W Auto Different ial panel - Blood CBC and differential Lab Routine Weight gain History of alcohol dependence (HCC) Other fatigue Ordered: 12/12/2024 [facility] Comment on above: Ordered: 12/12/2024 Ceruloplasmin [Mass/volume] in Serum or Plasma [facility] CHLAMYDIA TRACHOMATI S (GENITO/STI) CHLAMYDIA TRACHOMATIS (GENITO/STI) Lab Routine Pain in female genitalia on intercourse Cystitis Ordered: 06/25/2024 [facility] Comment on above: Ordered: 06/25/2024 End: 05-23-2024 CLOSTRIDIUM DIFFICILE TOXIN BY EIA [facility] Comment on above: ONCE for 1 Occurrences starting 05/23/19 until 05/23/2024 Cobalamin (Vitamin B 12) [Mass/volume] in Serum or Plasma Vitamin B12 Lab Routine Elevated liver enzymes Weight gain History of alcohol dependence (HCC) Other fatigue Ordered: 12/12/2024 [facility] Comment on above: Ordered: 12/12/2024 Comprehensive metabo lic 2000 panel - Serum or Plasma Comprehensive metabolic panel Lab Routine Elevated liver enzymes Hypokalemia Weight gain History of alcohol dependence (HCC) Impaired fasting glucose Ordered: 12/12/2024 [facility] Comment on above: Ordered: 12/12/2024 End: 06-26-2023 Ct abdomen & pelvis w/o contrast material CT ABD/PEL WO IVCON Radiology Routine Bilious vomiting with nausea Right sided abdominal pain Nausea 1 Occurrences starting 05/27/2022 until 06/26/2023 [facility] Work Phone: Comment on above: 1 Occurrences starting 05/27/2022 until 06/26/2023 End: 05-14-2025 CT Guidance for core needle biopsy of Liver LIVER BIOPSY NEEDLE Endoscopy Routine ENGLISH (nonalcoholic steatohepatitis) 1 Occurrences starting 05/14/2024 until 05/14/2025 [facility] Work Phone: Comment on above: 1 Occurrences starting 05/14/2024 until 05/14/2025 Cytology Cervical or vaginal smear or scraping study Pap Smear Pathology and Cytology Routine Well woman exam with routine gynecological exam Ordered: 03/20/2024 [facility] [employer] Work Phone: Comment on above: Ordered: 03/20/2024 End: 11-01-2024 ECG COMPLETE ECG COMPLETE ECG Routine Gastroparesis 1 Occurrences starting 11/02/2023 until 11/01/2024 [facility] Work Phone: Comment on above: 1 Occurrences starting 11/02/2023 until 11/01/2024 End: 12-18-2024 ECG COMPLETE ECG COMPLETE ECG Routine Syncope and collapse 1 Occurrences starting 12/19/2023 until 12/18/2024 [facility] Work Phone: Comment on above: 1 Occurrences starting 12/19/2023 until 12/18/2024 End: 05-27-2023 EGD DIAGNOSTIC EGD DIAGNOSTIC Endoscopy Routine Bilious vomiting with nausea Right sided abdominal pain 1 Occurrences starting 05/27/2022 until 05/27/2023 [facility] Work Phone: Comment on above: 1 Occurrences starting 05/27/2022 until 05/27/2023 Electrogastrography dx transcutaneous EGG (ELECTROGASTROGRAPHY) Procedures Routine Gastroparesis Ordered: 09/14/2022 [facility] Work Phone: Comment on above: Ordered: 09/14/2022 ENTERIC BACTERIAL PA BELEM BY PCR [facility] Work Phone: Comment on above: Release Upon Ordering for 1 Occurrences starting 05/22/2024 End: 04-26-2025 Flexible sigmoidoscopy study COLONOSCOPY DIAGNOSTIC Endoscopy Routine BRBPR (bright red blood per rectum) 1 Occurrences starting 04/26/2024 until 04/26/2025 [facility] Comment on above: 1 Occurrences starting 04/26/2024 until 04/26/2025 Folate [Mass/volume] in Serum or Plasma Folate Lab Routine Elevated liver enzymes Weight gain History of alcohol dependence (HCC) Other fatigue Ordered: 12/12/2024 [facility] Comment on above: Ordered: 12/12/2024 Hemoglobin A1c/Hemoglobin.total in Blood Hemoglobin A1c Lab Routine Weight gain Impaired fasting glucose Ordered: 12/12/2024 [facility] Comment on above: Ordered: 12/12/2024 Hepatitis A virus Ab [Presence] in Serum by Immunoassay [facility] HFE gene mutations f ound [Identifier] in Blood or Tissue by Molecular genetics method Nominal [facility] Homogenous nuclear A b pattern [Titer] in Serum [facility] Human papilloma viru s DNA [Presence] in Unspecified specimen by Probe with amplification HPV DNA probe, amplified Microbiology Routine Well woman exam with routine gynecological exam Ordered: 03/20/2024 [facility] Comment on above: Ordered: 03/20/2024 IgG [Mass/volume] in Serum or Plasma [facility] Iron + transferrin + TIBC Iron + transferrin + TIBC Lab Routine Elevated liver enzymes Weight gain Other fatigue Ordered: 12/12/2024 [facility] Comment on above: Ordered: 12/12/2024 Lipoprotein a [Moles/volume] in Serum or Plasma [facility] Liver ultrasound attenuation by transient elastography DDI VIBRATION CONTROLLED TRANSIENT ELASTOGRAPHY (VCTE) Endoscopy Routine Elevated LFTs Ordered: 04/26/2024 [facility] Comment on above: Ordered: 04/26/2024 Mitochondria M2 IgG Ab [Units/volume] in Serum [facility] Neisseria gonorrhoea e DNA [Presence] in Unspecified specimen by SHEILA with probe detection Neisseria gonorrhea DNA probe, direct Lab Routine Pain in female genitalia on intercourse Cystitis Ordered: 06/25/2024 [facility] Comment on above: Ordered: 06/25/2024 Nuclear Ab [Titer] i n Serum [facility] OUTSIDE VENDOR CARDI AC OUTPATIENT EXTENDED RHYTHM RECORDING (WITHOUT TELEMETRY) OUTSIDE VENDOR CARDIAC OUTPATIENT EXTENDED RHYTHM RECORDING (WITHOUT TELEMETRY) Holter Routine Syncope, unspecified syncope type Ordered: 12/19/2023 [facility] Comment on above: Ordered: 12/19/2023 Patient Education Depression in adults - Discharge instructions [facility] Instructions Know your Meds [facility] Work Phone: Patient referral [facility] Work Phone: End: 12-18-2024 STRESS ECHO TREADMILL STRESS ECHO TREADMILL Cardiology Routine Syncope, unspecified syncope type 1 Occurrences starting 12/19/2023 until 12/18/2024 [facility] Work Phone: Comment on above: 1 Occurrences starting 12/19/2023 until 12/18/2024 SURESWAB(R) ADVANCED VAGINITIS PLUS, TMA SURESWAB(R) ADVANCED VAGINITIS PLUS, TMA Pathology and Cytology Routine Pain in female genitalia on intercourse Cystitis Ordered: 06/25/2024 [facility] [employer] Work Phone: Comment on above: Ordered: 06/25/2024 SURGICAL PATHOLOGY [facility] Comment on above: Release Upon Ordering for 1 Occurrences starting 05/22/2024, 1 completed TSH W/REFLEX TO FT4 TSH W/REFLEX TO FT4 Lab Routine Weight gain History of alcohol dependence (HCC) Other fatigue Ordered: 12/12/2024 [facility] Comment on above: Ordered: 12/12/2024 End: 07-14-2023 Us abdominal real time w/image limited US ABD RT UPPER QUADRANT Radiology Routine Liver lesion 1 Occurrences starting 06/14/2022 until 07/14/2023 [facility] Work Phone: Comment on above: 1 Occurrences starting 06/14/2022 until 07/14/2023 Vitamin B1 Vitamin B1 Lab R outine Elevated liver enzymes Weight gain History of alcohol dependence (HCC) Ordered: 12/12/2024 [facility] Comment on above: Ordered: 12/12/2024 Vitamin B6 Vitamin B6 Lab R outine Elevated liver enzymes Weight gain History of alcohol dependence (HCC) Ordered: 12/12/2024 [facility] Work Phone: Comment on above: Ordered: 12/12/2024 XR Abdomen Supine an d Upright XR ABDOMEN 2V ROUTINE SUPINE W UPRIGHT/DECUB/CTL Radiology Routine Chronic idiopathic constipation 07/10/2024 11:30 AM EDT [facility] Work Phone: End: 11-08-2025 XR Abdomen Supine and Upright XR ABDOMEN 1V SUPINE Radiology Routine Pelvic floor dysfunction Chronic constipation 3x per week for 3 Occurrences starting 10/09/2024 until 11/08/2025 [facility] Comment on above: 3x per week for 3 Occurrences starting 0 10/09/2024 until 11/08/2025 [facility] Immunizations Immunization Date Immunization Notes Care Provider Fa [facility] 09-06-2024 tetanus toxoid, redu rolanda diphtheria toxoid, and acellular pertussis vaccine, adsorbed Giovani Hagen MD Work Phone: [facility] [employer] 11-02-2021 SARS-CoV-2 mRNA (kjviaamflqc-bioh-feylm se) vaccine Madhuri MISHRA [facility] 04-29-2021 SARS-CoV-2 (COVID-19 ) mRNA BNT-162b2 vax Madhuri MISHRA [facility] 03-03-2021 SARS-CoV-2 (COVID-19 ) mRNA BNT-162b2 vax Madhuri MISHRA [facility] Comment on above: Result Comment: 2022: TPVAL 02-09-2021 influenza virus vaccine, unspecified formulation Madhuri MISHRA [facility] 02-09-2021 influenza, injectabl e, quadrivalent, preservative free Zhen Blackston PT Work Phone: [facility] 03-16-2020 influenza virus vaccine, unspecified formulation Madhuricecille MISHRA [facility] 03-16-2020 Influenza, injectabl e, Madin Jenn Canine Kidney, preservative free, quadrivalent Zhen Blackston PT Work Phone: [facility] 01-08-2018 influenza virus vaccine, unspecified formulation Madhuricecille MISHRA [facility] 01-08-2018 influenza, injectabl e, quadrivalent, contains preservative Zhen Blackston PT Work Phone: [facility] 01-08-2018 influenza, injectabl e, quadrivalent, preservative free Zhen Blackston PT Work Phone: [facility] 02-01-2017 influenza virus vaccine, unspecified formulation Madhuri MISHRA [facility] 02-01-2017 Influenza, injectabl e, Madin Jenn Canine Kidney, preservative free, quadrivalent Zhen Blackston PT Work Phone: [facility] 03-25-2016 influenza virus vaccine, unspecified formulation Madhuri MISHRA [facility] 03-25-2016 influenza, injectabl e, quadrivalent, preservative free Zhen Blackston PT Work Phone: [facility] 02-05-2010 tetanus toxoid, redu rolanda diphtheria toxoid, and acellular pertussis vaccine, adsorbed Madhuri MISHRA [facility] 01-05-2007 hepatitis B vaccine, pediatric or pediatric/adolescent dosage Madhuri MISHRA [facility] 11-02-2006 hepatitis B vaccine, pediatric or pediatric/adolescent dosage Madhuri MISHRA [facility] 11-02-2006 HPV, unspecified formulation Madhuri MISHRA [facility] 11-02-2006 human papilloma viru s vaccine, quadrivalent Zhenben Burgess PT Work Phone: [facility] 11-02-2006 meningococcal ACWY vaccine, unspecified formulation Madhuricecille MISHRA [facility] 11-02-2006 meningococcal polysaccharide (groups A, C, Y and W-135) diphtheria toxoid conjugate vaccine (MCV4P) Zhen Burgess PT Work Phone: [facility] 02-20-1998 hepatitis B vaccine, pediatric or pediatric/adolescent dosage Madhuri MISHRA [facility] 12-28-1993 diphtheria, tetanus toxoids and pertussis vaccine Zhen Burgess PT Work Phone: [facility] 12-07-1992 diphtheria, tetanus toxoids and pertussis vaccine Zhen Burgess PT Work Phone: [facility] 12-07-1992 measles, mumps and rubella virus vaccine Madhuri MISHRA [facility] 12-07-1992 trivalent poliovirus vaccine, live, oral Zhen Burgess PT Work Phone: [facility] 06-09-1992 diphtheria, tetanus toxoids and pertussis vaccine Zhen Burgess PT Work Phone: [facility] 06-09-1992 measles, mumps and rubella virus vaccine Madhuri MISHRA [facility] 06-09-1992 trivalent poliovirus vaccine, live, oral Zhen Burgess PT Work Phone: [facility] 10-31-1990 varicella virus vaccine Patr homer MISHRA [facility] 06-20-1990 diphtheria, tetanus toxoids and pertussis vaccine Zhen Burgess PT Work Phone: [facility] 05-21-1990 trivalent poliovirus vaccine, live, oral Zhen Burgess PT Work Phone: [facility] 01-10-1989 trivalent poliovirus vaccine, live, oral Zhen Burgess PT Work Phone: [facility] NEGATED: Highlighted row has not occurred!05-01-2019 influenza virus vaccine, live, attenuated, for intranasal use Madhuri MISHRA [facility] NEGATED: Highlighted row has not occurred!04-03-2019 influenza virus vaccine, live, attenuated, for intranasal use Madhuri MISHRA [facility] Payers Date Payer Category Payer Self-pay [id number] 2020 Private Health Insurance [id number] 2020 Unknown [id number]. 1.13.159.2.7 .[id number] 1988 Unknown [id number] 2.16.840.1.598756.3.579.2.1 82 1988 Unknown [id number] 2.16.840.1.444205.3.579.2.5 93 1988 Unknown [id number] 2.16.840.1.752884.3.579.2.5 93 1988 Unknown [id number] 2.16.840.1.659851.3.579.2.5 93 1988 Unknown [id number] 2.16.840.1.443602.3.579.2.5 93 1988 Unknown [id number] 2.16.840.1.987451.3.579.2.5 93 1988 Unknown [id number] 2.16.840.1.805558.3.579.2.5 93 1988 Unknown [id number] 2.16.840.1.785508.3.579.2.5 93 1988 Unknown [id number] 2.16.840.1.691293.3.579.2.5 93 1988 Unknown [id number] 2.16.840.1.048854.3.579.2.5 93 1988 Unknown [id number] 2.16.840.1.682492.3.579.2.5 93 1988 Unknown [id number] 2.16.840.1.633499.3.579.2.5 93 1988 Unknown [id number] 2.16.840.1.066343.3.579.2.5 93 1988 Unknown [id number] 2.16.840.1.253928.3.579.2.5 93 1988 Unknown [id number] 2.16.840.1.974808.3.579.2.1 77 1988 Unknown [id number] 2.16.840.1.794531.3.579.2.7 27 1988 Unknown [id number] 2.16.840.1.487573.3.579.2.7 27 1988 Unknown [id number] 2.16.840.1.699528.3.579.2.7 27 1988 Unknown [id number] 2.16.840.1.050780.3.579.2.1 73 1988 Unknown [id number] 2.16840.1.763327.3.579.2.1 73 1988 Unknown [id number] 2.16840.1.117304.3.579.2.1 259 1988 Unknown [id number] 2.16840.1.470167.3.579.2.1 259 1988 Unknown [id number] 2.840.1.077716.3.579.2.1 259 1988 Unknown [id number] 2.0.1.595187.3.579.2.1 259 1988 Unknown [id number] 2.840.1.141851.3.579.2.1 259 1988 Unknown [id number] 2.840.1.345594.3.579.2.1 259 1988 Unknown [id number] 2.840.1.617371.3.579.2.1 259 1988 Unknown [id number] 20.1.073996.3.579.2.1 259 1988 Unknown [id number] 2.16840.1.178800.3.579.2.1 259 1988 Unknown [id number] 2.16840.1.710647.3.579.2.1 259 1988 Unknown [id number] 2.16840.1.869490.3.579.2.1 259 1988 Unknown [id number] 2.16840.1.296872.3.579.2.1 259 1988 Unknown [id number] 2.16.840.1.083019.3.579.2.1 259 1988 Unknown [id number] 2.16.840.1.957786.3.579.2.1 259 1988 Unknown [id number] 2.16.840.1.986503.3.579.2.1 259 1988 Unknown [id number] 2.16.840.1.046633.3.579.2.1 259 1988 Unknown [id number] 2.16.840.1.186686.3.579.2.1 259 1988 Unknown [id number] 2.16.840.1.941678.3.579.2.1 259 1988 Unknown [id number] 2.16.840.1.041958.3.579.2.1 259 1988 Unknown [id number] 2.16840.1.641482.3.579.2.1 259 1988 Unknown [id number] 2.16.840.1.194944.3.579.2.1 259 1988 Unknown [id number] 2.16840.1.643265.3.579.2.1 259 1988 Unknown [id number] 2.16.840.1.557443.3.579.2.1 259 1988 Unknown [id number] 2.16840.1.174229.3.579.2.1 259 1988 Unknown [id number] 2.16.840.1.823932.3.579.2.1 259 1988 Unknown [id number] 2.16.840.1.236370.3.579.2.1 259 1988 Unknown [id number] 2.16.840.1.435781.3.579.2.1 259 1988 Unknown [id number] 2.16.840.1.835888.3.579.2.1 259 1988 Unknown [id number] 2.16.840.1.219335.3.579.2.1 259 1988 Unknown [id number] 2.16.840.1.065481.3.579.2.1 259 1988 Unknown [id number] 2.16.840.1.370945.3.579.2.1 259 1988 Unknown [id number] 2.16.840.1.206965.3.579.2.1 259 1988 Unknown [id number] 2.16.840.1.003654.3.579.2.1 259 1988 Unknown [id number] 2.16.840.1.371434.3.579.2.1 259 1988 Unknown [id number] 2.16840.1.141900.3.579.2.1 259 1988 Unknown [id number] 2.16840.1.339588.3.579.2.1 259 1988 Unknown [id number] 2.16840.1.613488.3.579.2.1 259 1988 Unknown [id number] 2.16.840.1.903538.3.579.2.1 259 1988 Unknown [id number] 2.16.840.1.732096.3.579.2.1 259 1988 Unknown [id number] 2.16.840.1.669157.3.579.2.1 259 1988 Unknown [id number] 2.16.840.1.995520.3.579.2.1 259 1988 Unknown [id number] 2.16.840.1.979865.3.579.2.1 259 1988 Unknown [id number] 2.16.840.1.143969.3.579.2.1 259 1988 Unknown [id number] 2.16.840.1.242612.3.579.2.1 259 1988 Unknown [id number] 2.16.840.1.123146.3.579.2.1 259 1988 Unknown [id number] 2.16.840.1.894423.3.579.2.1 259 1988 Unknown [id number] 2.16.840.1.753936.3.579.2.1 259 1988 Unknown [id number] 2.16.840.1.899553.3.579.2.1 259 1988 Unknown [id number] 2.16.840.1.880660.3.579.2.1 259 1988 Unknown [id number] 2.16.840.1.215321.3.579.2.1 259 1988 Unknown [id number] 2.16.840.1.618120.3.579.2.1 259 1988 Unknown [id number] 2.16.840.1.204918.3.579.2.1 259 1959 Unknown [id number] Unknown 100 [facility] [id number] Unknown [id number] 2.16.840.1.360720.3.579.2.5 31 Social History Date Type Detail Facility Tobacco smoking stat [facility] Unknown if ever smoked [facility] Work Phone: Start: 1990 Sex Assigned At Female [facility] Start: 03-28-2019 End: 05-27-2022 Tobacco smoking status NEIS Never smoked tobacco [facility] Start: 05-27-2022 End: 01-06-2025 Tobacco use and exposure Smokeless tobacco non-user [facility] Start: 05-27-2022 End: 01-15-2025 Alcohol intake Current drinker of alcohol (finding) [facility] Start: 03-28-2019 Alcohol Comment socially [facility] Start: 1990 Sex Assigned At Not on file [facility] Start: 11-02-2022 End: 05-09-2024 Sex Assigned At [facility] Start: 06-29-2022 End: 10-10-2024 Tobacco smoking status Ex-smoker (finding) [facility] Start: 01-24-2019 End: 12-31-2024 Tobacco smoking status Never [facility] Start: 11-02-2022 End: 05-09-2024 History of Social function [facility] Start: 06-08-2021 Gender identity Identifies as female gender (finding) [facility] Start: 11-16-2021 End: 11-26-2021 Exposure to SARS-CoV-2 (event) Not sure [facility] Start: 08-17-2024 History of tobacco use Current smoker [facility] Within the last year , have you been afraid of your partner or ex-partner? No [facility] Do you belong to any clubs or organizations such as advent groups, unions, fraternal [...] Start: 02-02-2013 End: 08-19-2024 Sex Female (finding) [facility] History of tobacco use Cigarette Smoker [facility] Sexual Orientation [facility] Start: 01-06-2025 Tobacco smoking status NHIS Smokes tobacco daily [facility] Goals Date Patient Goal Desired Activity /State Personal health goal Personal health goal Functional Status Date Assessment Result Facility 01-06-2025 Patient Health [facility] ionnaire 2 item (PHQ-2) [facility]Reported[facility]25 PHQ-9 quick depressi on assessment panel [Reported.PHQ] [facility] 10-08-2024 Patient Health [facility] ionnaire 2 item (PHQ-2) [Reported] [facility] 10-08-2024 PHQ-9 quick depressi on assessment panel [Reported.PHQ] [facility] Patient Health [facility] ionnaire 2 item (PHQ-2) [Reported[facility] 09-25-[facility]24 PHQ-9 quick depressi on assessment panel [Reported.PHQ] [facility] 09-17-2024 Patient Health [facility] ionnaire 2 item (PHQ-2) [Reported] [facility] 09-02-2024 Patient Health [facility] ionnaire 2 item (PHQ-2) [Reported] [facility] 08-19-2024 Functional status Patient at Baseline [facility] Work Phone: 12-28-2023 Functional Status N/A [facility] 06-30-2022 Functional Status N/A [facility] Mental Status Date Assessment Result Facility 08-19-2024 Cognitive function Cognitive Sta tus Patient at Baseline [facility] Work Phone: Clinical Notes 05-03-2022 to 01-22-2025 Telephone Encounter - VINH Roque - 01/22/2025 9:39 AM EDTTelephone Encounter - VINH Roque - 01/22/2025 9:39 AM EDTTelephone Encounter - VINH Roque - 01/20/2025 8:34 AM EDT Note Date & Type Note Facility 01-22-2025 Telephone encounter Note OARRS reviewed, Rx sent into patient's pharmacy. [facility] 01-22-2025 Miscellaneous Notes OARRS reviewed, Rx sent into patient's pharmacy. documented in this encounter [facility] 01-20-2025 Telephone encounter Note Doxepin sent. [facility] 01-20-2025 Miscellaneous Notes Doxepin sent. documented in this encounter [facility] 01-15-2025 History of Present illness Narrative Images from [...] Patient states that she was surfing in [place] when she injured her right ankle and subtalar joint. She had a cortisone injection did very well no pain able to walk and perform activities of daily living with minimal concern Allergies: Allergies Allergen Reactions Cat Dander Anaphylaxis [...] Acute biliary pancreatitis without infection or necrosis ([facility]) 03/21/2023 Calculus of gallbladder without cholecystitis without obstruction 03/23/2023 Cholecystitis 04/18/2023 History of acute pancreatitis 04/18/2023 History of cholecystectomy 04/18/2023 Cough 04/18/2023 Anaphylactic syndrome 04/18/2023 PTSD (post-traumatic stress disorder) 02/24/2015 Tinea 10/03/2023 Weight gain 10/03/2023 Glucose intolerance 10/03/2023 Dyshidrosis 10/03/2023 Well adult health check 12/04/2023 Cervical radiculopathy 12/26/2023 Body mass index (BMI) 36.0-36.9, adult 02/06/2024 Localized edema 02/06/2024 Pain and swelling of left shoulder 04/03/2024 Asthmatic bronchitis with acute exacerbation ([facility]) 04/16/2024 Snoring 04/16/2024 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 Borderline diabetes 06/06/2024 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 Major depressive disorder, recurrent, moderate ([facility]) 08/20/2024 Alcohol use, unspecified with alcohol-induced psychotic disorder, unspecified ([facility]) 09/02/2024 Alcohol withdrawal delirium ([facility]) 09/02/2024 Hypertension 09/02/2024 Sinus tachycardia 09/02/2024 Fall at home 09/10/2024 Extruding suture 09/25/2024 Lumbar radiculopathy 12/09/2024 Generalized anxiety disorder 12/12/2024 Obsessive-compulsive disorder 12/12/2024 Pelvic floor dysfunction 10/11/2024 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 Right ovarian cyst 12/12/2024 Morbid (severe) obesity due to excess calories ([facility]) 12/16/2024 Impaired fasting glucose 12/16/2024 Obesity, class 2 12/16/2024 Atypical migraine 12/29/2024 Chest pain 01/06/2025 Type 2 diabetes mellitus without complication, without long-term current use of insulin ([facility]) 01/06/2025 Resolved Ambulatory Problems Diagnosis Date Noted Abnormal ultrasound 09/23/2022 Diverticulitis 09/23/2022 Diverticulitis of large intestine without perforation or abscess without bleeding 09/23/2022 Maxillary sinusitis 09/23/2022 Sinusitis 09/23/2022 Obesity (BMI 30.0-34.9) 09/23/2022 Sciatica 09/23/2022 Smoker 09/23/2022 Tension headache 09/23/2022 Severe acute respiratory syndrome coronavirus 2 (SARS-CoV-2) detected 11/30/2022 Dysuria 12/12/2022 Urinary frequency 12/12/2022 UTI (urinary tract infection) 12/12/2022 Encounter for postoperative care 04/18/2023 Injury of right ankle 02/06/2024 Sprain of [...] problems 06/10/2022 Influenza A 05/07/2017 Ingrown toenail 2014 Left ovarian cyst 03/01/2019 Pancreatitis ([facility]) Pap smear for cervical cancer screening [...] mouth Daily, Disp: 100 capsule, Rfl: 3 celecoxib (CeleBREX) 100 MG capsule, Take 1 capsule (100 mg) by mouth in the morning and 1 capsule (100 mg) before bedtime., Disp: 180 capsule, Rfl: 3 citalopram (CeleXA) 10 MG [...] mg by mouth Daily, Disp: , Rfl: Yajlckvvzhx-Rxrhftrip-Sxrbjl (Trelegy Ellipta) 100-62.5-25 MCG/ACT aerosol powder , [...] before bedtime., Disp: 100 capsule, Rfl: 2 predniSONE (Deltasone) 10 MG tablet, Take 4 tablets (40 mg) by mouth Daily for 4 days, THEN 3 tablets (30 mg) Daily for 4 days, THEN 2 tablets (20 mg) Daily for 4 days, THEN 1 tablet (10 mg) Daily for 4 days., Disp: 40 tablet, Rfl: 0 propranolol (Inderal) 10 MG tablet, every 12 (twelve) hours, Disp: , Rfl: Semaglutide-Weight Management (Wegovy) 0.25 MG/0.5ML solution auto-injector, Inject 0.25 mg under the skin 1 (one) time per week, Disp: 2 mL, Rfl: 0 Semaglutide-Weight Management (Wegovy) 0.25 MG/0.5ML solution auto-injector, Inject 0.25 mg under the skin 1 (one) time per week, Disp: 2 mL, Rfl: 0 Review of systems: Constitutional: Denies fever, chills, [...] < 3 seconds Digits 1-5 bilateral NEURO: [place] Cullen 5.07 monofilament was intact B/L. Vibratory sensation was intact B/L Musculoskeletal: Muscle strength was +5 over 5 all intrinsic and extrinsic muscles tested. There is no pain with direct palpation of the sinus [...] motion of the ankle or subtalar joint. ASSESSMENT 1. Other synovitis and tenosynovitis, right ankle and foot 2. Other enthesopathy of right foot and ankle PLAN The patient was educated on the etiology of sinus tarsi syndrome as well as capsulitis of the subtalar joint. She is doing significantly better she is to continue with the orthotic devices follow up with me p.r.n. JASON Conti documented in this encounter [facility] 01-13-2025 Telephone encounter Note She would like the steroid sent in. She did use both her inhaler and the nebulizer and still wasn't feeling the best. [facility] 01-13-2025 Miscellaneous Notes She would like the steroid sent in. She did use both her inhaler and the nebulizer and still wasn't feeling the best. documented in this encounter [facility] 01-06-2025 History of Present illness Narrative Associated [...] yearly wellness. Patient was seen in the [place] ER this morning for having chest pain, [...] tablet Take 20 mg by mouth Daily Tvphtvsyyns-Vmgwheifn-Mubzmk (Trelegy Ellipta) 100-62.5-25 MCG/ACT aerosol powder INHALE [...] on file. documented in this encounter [facility] 01-01-2025 Note Patient Education Urology Kidney Stones [...] these instructions at home: Medicines ??? Take smek-eat-tvvwmca and prescription medicines only as told by [...] pale yellow. Thi (more content not included)... [facility] 12-30-2024 History of Present illness Narrative [...] Patient states that she was surfing in [place] when she injured her right ankle and [...] Acute biliary pancreatitis without infection or necrosis ([facility]) 03/21/2023 Calculus of gallbladder without cholecystitis [...] Morbid (severe) obesity due to excess calories ([facility]) 12/16/2024 Impaired fasting glucose 12/16/2024 Obesity, class [...] toenail 2015 Left ovarian cyst 03/01/2019 Pancreatitis ([facility]) Pap smear for cervical cancer screening 04/20/2022 Post depression Seizures ([facility]) 2002 Medications: Current Outpatient Medications: albuterol (2.5 [...] mg by mouth Daily, Disp: , Rfl: Hjwscgmemxy-Gfdrvyxyy-Brnrhz (Trelegy Ellipta) 100-62.5-25 MCG/ACT aerosol powder , [...] < 3 seconds Digits 1-5 bilateral NEURO: [place] Cullen 5.07 monofilament was intact B/L. Vibratory [...] follow up 2 weeks Milton Fraire DPM FACHAL documented in this encounter [facility] 12-30-2024 Instructions Emma Ying APRN.HIGHWAY WORKER - 12/30/2024 9:42 AM EDT Images from [...] to your home. I recommend Camilla in [place], as she is approximately 30 minutes from [...] a physical therapist. documented in this encounter [facility] 12-30-2024 History of Present illness Narrative Images from the original note were not included. [facility] SECTION FOR CHRONIC PELVIC PAIN OUTPATIENT VISIT DATE 12/30/2024 OUTPATIENT VISIT TYPE CONSULT REFERRING PROVIDER: Javy Boudreaux MD PRIMARY CARE PROVIDER: Giovani Hagen MD, MD PRIMARY GAS APPLIANCE MECHANIC: Consultation requested by referring provider above for an opinion regarding Orion Harper, and my final recommendations will be communicated back to the requesting physician by way of shared medical record or letter via US mail. Recording using Veh[employer] software for draft documentation of the visit was discussed with the patient/authorized claims representative; all questions welcomed and answered. Patient/authorized claims representative agreed to proceed CHIEF COMPLAINT/REASON FOR [...] is not in contact with those individuals. Rehabilitation Aide/Scheduler Hx: (page 3) Menarche: 9 Currently experiences: Not menstruating Duration of dysmenorrhea symptoms: n/a Currently missing school/work: N/A Prior dysmenorrhea treatment: Other, Hysterectomy Current control: Nothing History of STD: Negative history MA intake LMP: Patient's last menstrual period was 05/25/2015. Cycles: Hysterectomy, Flow: n/a Intermenstrual spotting between periods: N/A Last pap: Pap Results: WNL 03/20/2024, HPV: History of abnormal pap: Yes [place]: ([place] intake) Dyspareunia: both insertional and deep [...] Pain characteristics: (page 5) Pain started (month/year): 1922-9500 Inciting event: No obvious cause/do not know Onset: Gradual Duration of pain: 2-5 years Character of pain: Sharp, stabbing Wakes from sleep: No Radiation of pain: No Aggravating factors: [place]/Sexual contact Alleviating factors: Nothing makes it better Bowel habits: (page 12-13) Nausea/vomiting: endorses Diarrhea: denies Abdominal pain: denies Bloating: denies Constipation: denies Increased pain with bowel movements: denies Blood in stool: endorses Pain with change in frequency of stool: denies Pain with change in appearance of stool: denies Pain changes with bowel movements: denies. 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 The sensitive examination was discussed with the Patient or Patient's Authorized Insurance Operations Rep. As applicable, any other physician, advance practice provider, medical student, or other health professional student that will be observing or involved in the sensitive examination for educational or training purposes was discussed with the Patient or Authorized Insurance Operations Rep. The Patient or Authorized Insurance Operations Rep has agreed to proceed with the sensitive [...] with more than 50% of the total ukfz-xd-hgqk time of the visit in counseling / coordination of care. I personally interviewed, confirmed and edited the above information if obtained by others. Emma Ying APRN.CNP This note was written with the assistance of [employer] WILLIE. It has been reviewed for accuracy however there may remain errors. [1] Social History Tobacco Use Smoking status: Never Smokeless tobacco: Never Vaping Use Vaping status: Never Used Substance Use Topics Alcohol use: Yes Alcohol/week: 4.0 standard drinks of alcohol Types: 2 Cans of beer, 2 Shots of liquor per week Comment: socially Drug use: Never documented in this encounter [facility] 12-30-2024 Note HNO ID: [id number] Author: EMMA YING APRN.CNP Service: ? Author Type: Nurse Practitioner Type: Progress Notes Filed: 12/30/2024 10:35 Note Text: [facility] SECTION FOR CHRONIC PELVIC PAIN OUTPATIENT VISIT DATE 12/30/2024 OUTPATIENT VISIT TYPE CONSULT REFERRING PROVIDER: Javy Boudreaux MD PRIMARY CARE PROVIDER: Giovani Hagen MD, MD PRIMARY GAS APPLIANCE MECHANIC: Consultation requested by referring provider above for an opinion regarding Orion Harper, and my final recommendations will be communicated back to the requesting physician by way of shared medical record or letter via US mail. Recording using Vehcon software for draft documentation of the visit was discussed with the patient/authorized claims representative; all questions welcomed and answered. Patient/authorized claims representative agreed to proceed CHIEF COMPLAINT/REASON FOR [...] is not in contact with those individuals. Rehabilitation Aide/Scheduler Hx: (page 3) Menarche: 9 Currently experiences: Not menstruating Duration of dysmenorrhea symptoms: n/a Currently missing school/work: N/A Prior dysmenorrhea treatment: Other, Hysterectomy Current control: Nothing History of STD: Negative history MA intake LMP: Patient's last menstrual period was 05/25/2015. Cycles: Hysterectomy, Flow: n/a Intermenstrual spotting between periods: N/A Last pap: Pap Results: WNL 03/20/2024, HPV: History of abnormal pap: Yes [place]: (MA intake) Dyspareunia: both insertional and deep [...] Pain characteristics: (page 5) Pain started (month/year): 0115-2522 Inciting event: No obvious cause/do not know Onset: Gradual Duration of pain: 2-5 years Character of pain: Sharp, stabbing Wakes from sleep: No Radiation of pain: No Aggravating factors: [place]/Sexual contact Alleviating factors: Nothing makes it better Bowel habits: (page 12-13) Nausea/vomiting: endorses Diarrhea: denies Abdominal pain: denies Bloating: denies Constipation: denies Increased pain with bowel movements: denies Blood in stool: endorses Pain with change in frequency of stool: (more content not included)... [facility] 12-26-2024 History of Present illness Narrative [...] chipping her ankle again while surfing in [place]. Despite receiving four steroid injections, she continues [...] for Trileptal will be sent to [facility] in [place]. 2. Ankle pain. The patient reports persistent [...] BID. This clinical note was created utilizing More[employer] documentation system. All information has been thoroughly reviewed, corrected as necessary, and authenticated by the provider to ensure accuracy and completeness. On occasion, More[employer] documentation system erroneously drops words or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 bronchospasm ([facility]) 09/23/2022 Finding of above normal blood pressure 09/23/2022 History of hysterectomy 09/23/2022 Hyperglycemia 09/23/2022 Hypersexuality 09/23/2022 Insomnia 09/23/2022 Irritable bowel syndrome with constipation 09/23/2022 Mild intermittent asthma without complication ([facility]) 09/23/2022 Mood swings 09/23/2022 Nephrolithiasis 09/23/2022 Nonalcoholic steatohepatitis (ENGLISH) 09/23/2022 Other specified abnormal findings of blood chemistry 09/23/2022 Poor concentration 09/23/2022 Sacroiliitis, not elsewhere classified ([facility]) 09/23/2022 Skin pain 09/23/2022 Thyroid enlargement ([facility]) 09/23/2022 Atherosclerosis of aorta ([facility]) 06/16/2020 Atherosclerosis of both carotid arteries 11/16/2020 Atherosclerosis of coronary artery without angina pectoris ([facility]) 05/18/2021 Gastroesophageal reflux disease without esophagitis 07/09/2019 Gastroparesis 11/02/2022 Non-refractory idiopathic generalized epilepsy ([facility]) 11/22/2019 Osteoarthritis of knee 06/14/2019 Hypercholesterolemia ([facility]) 07/01/2021 Recurrent UTI 12/12/2022 Vitamin D deficiency 05/16/2019 Dizziness 12/13/2022 Acute nonintractable headache 12/13/2022 History of COVID-19 02/06/2023 Overweight 02/06/2023 Acute biliary pancreatitis without infection or necrosis 03/21/2023 Calculus of gallbladder without cholecystitis without obstruction 03/23/2023 Cholecystitis 04/18/2023 Encounter for postoperative care 04/18/2023 History of acute pancreatitis 04/18/2023 History of cholecystectomy 04/18/2023 Cough 04/18/2023 Anaphylactic syndrome 04/18/2023 PTSD (post-traumatic stress disorder) ([facility]) 02/24/2015 Tinea 10/03/2023 Weight gain 10/03/2023 Glucose intolerance 10/03/2023 Dyshidrosis 10/03/2023 Encounter for well adult exam without abnormal findings 12/04/2023 Cervical radiculopathy 12/26/2023 Obesity (BMI 35.0-39.9 without comorbidity) 02/06/2024 Localized edema 02/06/2024 Injury of right ankle 02/06/2024 Sprain of anterior talofibular ligament of right ankle 04/01/2024 Pain and swelling of left shoulder 04/03/2024 Asthmatic bronchitis with acute exacerbation ([facility]) 04/16/2024 Snoring 04/16/2024 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 Patient to use Coconut oil in the interm, as triple antibiotics will not be prescribed as to not cause c-diff again for patient. Patient to RTC for annual and PRN. Documented by Acacia Vigil LPN on behalf of: Darwin Starr DO documented in this encounterCox MonettAjbeitquva09-73-2380 History of Present illness Narrative* Prateek Pedraza [...] the morning., Disp: 45 tablet, Rfl: 2 Pyqckgipufn-Bdtjcrodq-Eeiszk 100-62.5-25 MCG/ACT aerosol powder , Inhale 1 [...] future. Prateek Pedraza DPM documented in this encounterCox MonettUgoffjsqcj60-20-7098 Telephone encounter Note* Telephone Encounter - VINH Roque - 06/19/2024 10:18 AM EST OARRS reviewed, Rx sent into patient's pharmacy. [facility]tnzwjiw73-99-0711 Miscellaneous Notes* Telephone Encounter - VINH Roque - 06/19/2024 10:18 AM EST OARRS reviewed, Rx sent into patient's pharmacy. documented in this encounterNONorth [facility] City HospitalItdzamoehy66-88-9216 Telephone encounter Note* Telephone Encounter - JASON Conti - 06/12/2024 10:56 PM EST The prescription has been sent to the pharmacy. Thank you. [facility] [id number] Miscellaneous Notes* Telephone Encounter - JASON Conti - 06/12/2024 10:56 PM EST The prescription has been sent to the pharmacy. Thank you. 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 The drive [place] way 1hr and 40 minutes. 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 When gets around people doesn't like to be asked questions and doesn't like to be put on the spot. 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 Bipolar well managed Anxiety Presents for follow-up [...] time for 1 dose 1 each 2 Lmxkcmqiwaq-Mjjxlpmfy-Kncosk 100-62.5-25 MCG/ACT aerosol powder Inhale 1 puff [...] weeks (around 07/04/2024). documented in this encounterCox MonettGnnbkkbukc12-38-6100 History of Present illness Narrative* VINH Sibley [...] escitalopram (LEXAPRO) 20 mg, Oral, Every morning Unueubccylz-Onwdxgetg-Ebutro 100-62.5-25 MCG/ACT aerosol powder 1 puff, Inhalation, [...] Poor concentration 09/23/2022 Sacroiliitis, not elsewhere classified ([facility]) 09/23/2022 Skin pain 09/23/2022 Thyroid enlargement ([facility]) 09/23/2022 Atherosclerosis of aorta ([facility]) 06/16/2020 Atherosclerosis of both carotid arteries 11/16/2020 Atherosclerosis of coronary artery without angina pectoris ([facility]) 05/18/2021 Gastroesophageal reflux disease without esophagitis 07/09/2019 Gastroparesis 11/02/2022 Non-refractory idiopathic generalized epilepsy ([facility]) 11/22/2019 Osteoarthritis of knee 06/14/2019 Hypercholesterolemia ([facility]) 07/01/2021 Recurrent UTI 12/12/2022 Vitamin D deficiency 05/16/2019 Dizziness 12/13/2022 Acute nonintractable headache 12/13/2022 History of COVID-19 02/06/2023 Overweight 02/06/2023 Acute biliary pancreatitis without infection or necrosis 03/21/2023 Calculus of gallbladder without cholecystitis without obstruction 03/23/2023 Cholecystitis 04/18/2023 Encounter for postoperative care 04/18/2023 History of acute pancreatitis 04/18/2023 History of cholecystectomy 04/18/2023 Cough 04/18/2023 Anaphylactic syndrome 04/18/2023 PTSD (post-traumatic stress disorder) ([facility]) 02/24/2015 Tinea 10/03/2023 Weight gain 10/03/2023 Glucose intolerance 10/03/2023 Dyshidrosis 10/03/2023 Encounter for well adult exam without abnormal findings 12/04/2023 Cervical radiculopathy 12/26/2023 Obesity (BMI 35.0-39.9 without comorbidity) 02/06/2024 Localized edema 02/06/2024 Injury of right ankle 02/06/2024 Sprain of anterior talofibular ligament of right ankle 04/01/2024 Pain and swelling of left shoulder 04/03/2024 Asthmatic bronchitis with acute exacerbation ([facility]) 04/16/2024 Snoring 04/16/2024 Resolved Ambulatory Problems [...] [facility] COLONOSCOPY 05/28/[address] [facility] [address] ANGIOGRAM CHEST 07/30/2018 CT ANGIOGRAM CHEST [...] having a diagnostic laparoscopy performed at [facility] with Dr. Starr.results was reviewed with the patient and all restrictions have been lifted. Follow Up: Patient is to return to the office for annual exam unless needed otherwise. Documented by VINH Sibley on behalf of: VINH Sibley documented in this encounterCox [id number] Telephone encounter Note* Telephone Encounter - Benito [...] and precautions to follow Carol Winn MD [facility]01-30-2025 Miscellaneous Notes* Telephone Encounter - Benito [...] follow Carol Winn MD documented in this encounterWood [facility] Hospital01-29-2025 History and physical note * Carol [...] DATE: May 22, 2024 TIME: 1:39 PM [facility] Work Phone: 1(100) 148-907001-29-2025 History and physical note* Carol Winn MD [...] 2024 TIME: 1:39 PM documented in this encounterWood County Hospital01-29-2025 Nurse Note* Lindsey Buckley RN - [...] Lindsey Buckley RN In Department: AMBULATORY SURGERY [facility]01-29-2025 Nurse Note* Lindsey Buckley RN - [...] In Department: AMBULATORY SURGERY documented in this encounterWood County Hospital01-22-2025 Telephone encounter Note * Telephone Encounter - Rose Jarvis - 05/15/2024 3:56 PM EST Appts cxl, surgery notified to cxl. [facility]01-22-2025 Miscellaneous Notes* Telephone Encounter - Rose [...] time. Lydia Kelley DO documented in this encounterWood County Hospital01-22-2025 History of Present illness Narrative* Milton [...] attenuation of the anterior talof[place] [address] Magnetic Resonance Report Signed Patient: ORION HARPER MR#: [id number] : 1990 Acct:[id number] Age/Sex: 33 / F ADM Date: 03/14/24 Loc: MRI Attending Dr: Laurie Trujillo M.D. Ordering Physician: Laurie Trujillo M.D. Date of Service: 03/14/24 Procedure(s): MR ankle RT wo con Accession Number(s): [id number] cc: GIOVANI HAGEN ; Laurie Trujillo M.D. [place] [address] Patient Name: ORION HARPER MRN: [facility]:[id number] date: 1990 Sex: F Assigned Patient Location: MRI Current Patient Location: Accession/Order Number: [id number] Exam Date: 03/14/2024 15:04 Report Date: 03/17/2024 [...] THE MORNING, Disp: 30 tablet, Rfl: 2 Ylznnlxtnxj-Cnhaxeamg-Kztzvm 100-62.5-25 MCG/ACT aerosol powder , Inhale 1 [...] are palpable bilateral, no edema noted Neuro: [place] 5.07 monofilament intact, vibratory sensation intact Derm: [...] procedure. JASON Conti documented in this encounterCox MonettUbqvjdofjn90-79-4963 Telephone encounter Note* Telephone Encounter - VINH Roque - 05/10/2024 12:10 PM EST Pt was seen. OARRS reviewed, Rx sent into patient's pharmacy. [facility]ettLurwalfsyp40-73-0746 Miscellaneous Notes* Telephone Encounter - VINH Roque - 05/10/2024 12:10 PM EST Pt was seen. OARRS reviewed, Rx sent into patient's pharmacy. * Telephone Encounter - VINH Roque - 05/09/2024 1:07 PM EST Patient has appointment today. documented in this encounterCox MonettLbjwcahics17-77-0850 History of Present illness Narrative* Giovani Hagen [...] DAY IN THE MORNING 30 tablet 2 Clxohuikfym-Tmaosmree-Xrirds 100-62.5-25 MCG/ACT aerosol powder Inhale 1 puff [...] of spine - Primary Relevant Medications HYDROcodone-acetaminophen (Frederic) 5-325 MG tablet Other Relevant Orders Ambulatory referral to Pain Medicine No follow-ups on file. documented in this encounterCox MonettMwaebviuoz35-50-1833 Telephone encounter Note* Telephone Encounter - VINH Roque - 05/09/2024 1:07 PM EST Patient has appointment today. [facility]Jydomccnib06-06-1105 History of Present illness Narrative* Prateek Pedarza DPM - 05/08/2024 3:10 PM EST Patient: [...] THE MORNING, Disp: 30 tablet, Rfl: 2 Bixpcojfrnf-Hjjzpnnyz-Unpzlb 100-62.5-25 MCG/ACT aerosol powder , Inhale 1 [...] 0 min Stress: Stress Concern Present (04/18/2023) [employer] [place] [employer] - Occupational Stress Questionnaire Feeling of Stress : Very much Social Connections: Moderately Integrated (04/18/2023) Social Connection and Isolation Panel [NHANES] Frequency of Communication with Friends and Family: Three times a week Frequency of Social Gatherings with Friends and Family: Twice a week Attends Buddhist Services: Never Active Member of Clubs or [...] base of the right foot MRI: [place] [address] Magnetic Resonance Report Signed Patient: ORION HARPER MR#: [id number] : 1990 Acct:[id number] Age/Sex: 33 / F ADM Date: 03/14/24 Loc: MRI Attending Dr: Laurie Trujillo M.D. Ordering Physician: Laurie Trujillo M.D. Date of Service: 03/14/24 Procedure(s): MR ankle RT wo con Accession Number(s): [id number] cc: GIOVANI HAGEN ; Laurie Truijllo M.D. [place] [address] Patient Name: ORION HARPER MRN: [facility]:[id number] date: 1990 Sex: F Assigned Patient Location: MRI Current Patient Location: Accession/Order Number: [id number] Exam Date: 03/14/2024 15:04 Report Date: 03/17/2024 [...] Prateek Pedraza DPM documented in this encounterCox MonettZlmmrsnpth40-20-0632 Telephone encounter Note* Telephone Encounter - Criss Mccrary - 05/06/2024 1:40 PM EST Echo was faxed to Anne-Marie @ [phone] & scanned into outside ep. Patient is having a procedure. Criss Mccrary [facility]01-13-2025 Miscellaneous Notes* Telephone Encounter - Criss Holm - 05/06/2024 1:40 PM EST Echo was faxed to Anne-Marie @ [phone] & scanned into outside ep. Patient is having a procedure. Criss Mccrary documented [facility] encounterWood [facility] Telephone encounter Note * Telephone Encounter [...] seen at that time. Lydia Kelley DO [facility]01-09-2025 NoteHNO ID: [id number] Author: ZEHRA GRAY PA-C Service: ? Author Type: Physician Planning Assistant Type: Progress Notes Filed: 05/02/2024 11:34 Note [...] Int J Clin Exp Med. 2015 Jan 15;8(10):18386-81. PMID: 81979198; PMCID: [id number]. Ruthann Bob, Juan MEEK, Rico M, Cosmo F, Tawnya J, Everardo O, Leyla F, Franci M, Alejandro G, Dorie A, Gianna E, Leyla L, French Mcgovern, Kashmir A, Vicente U, Jodi S, Franc P, Max V, Last V, Leena M, Neo MARIE. Refining the Baveno elastography criteria for the definition of compensated advanced chronic liver disease. J Hepatol. 2020;74(5):9082-0282. doi: 10.1016/j.jhep.2020.11.050. Epub 2019Apr 01. PMID: 39682013. Izabel Bob, Chastity Moran, Martha Bob, Xiao Bob, Joon Stevens, Nuria Roth, Trevin Roth, Trixie Kendrick. AASLD practice guidance on the clinical assessment and management of nonalcoholic fatty liver disease. Hepatology. 2022;77(5):0735-4614. doi:10.1097/HEP.6495781071907454JubntojsoC[facility] History of Present illness Narrative* [...] and referral to hepatology. Zehra Gray PA-C [facility] Fibroscan Fibrosis Risk <7 kPA = [...] Int J Clin Exp Med. 2015 Jan 15;8(10):13525-12.PMID: 53422889; PMCID: [id number]. Ruthann Bob, Juan FANTASMA, Rico M, Cosmo F, Tawnya J, Everardo O, Leyla F, Franci M, Alejandro G, Dorie A, Gianna E, Leyla L, French G, Kashmir A, Vicente U, Jodi S, Jordan, Max V, de Kole V, Leena M, Neo MARIE. Refining the Baveno elastography criteria for the definition of compensated advanced chronic liver disease. J Hepatol. 2020;74(5):5331-1606. doi: 10.1016/j.jhep.2020.11.050. Epub 2019Apr 01. PMID: 87538075. Izabel Bob, Chastity B, Martha Bob, Xiao Bob, Joon S, Nuria Roth, Trevin Roth, Trixie Knedrick.AASLD practice guidance on the clinical assessment and management of nonalcoholic fatty liver disease. Hepatology. 2022;77(5):1797- 1835. doi:10.1097/HEP.[id number] documented in this encounterWood County Hospital01-07-[facility] History of Present illness Narrative* Sandy [...] on 05/23/[address] Starr at [facility]. MEDICATIONS Current Outpatient Medications Medication Instructions albuterol [...] escitalopram (LEXAPRO) 20 mg, Oral, Every morning Bdhmqygrmjj-Vugwisuww-Axphar 100-62.5-25 MCG/ACT aerosol powder 1 puff, Inhalation, [...] Attention deficit hyperactivity disorder, predominantly inattentive type ([facility]) 09/23/2022 Bipolar disorder, in partial remission, most recent episode manic ([facility]) 09/23/2022 Diverticular disease of colon 09/23/2022 Dysphagia 09/23/2022 Elevated liver enzymes 09/23/2022 Exercise induced bronchospasm ([facility]) 09/23/2022 Finding of above normal blood pressure 09/23/2022 History of hysterectomy 09/23/2022 Hyperglycemia 09/23/2022 Hypersexuality 09/23/2022 Insomnia 09/23/2022 Irritable bowel syndrome with constipation 09/23/2022 Mild intermittent asthma without complication ([facility]) 09/23/2022 Mood swings 09/23/2022 Nephrolithiasis 09/23/2022 Nonalcoholic steatohepatitis (ENGLISH) 09/23/2022 Other specified abnormal findings of blood chemistry 09/23/2022 Poor concentration 09/23/2022 Sacroiliitis, not elsewhere classified ([facility]) 09/23/2022 Skin pain 09/23/2022 Thyroid enlargement ([facility]) 09/23/2022 Atherosclerosis of aorta ([facility]) 06/16/2020 Atherosclerosis of both carotid arteries 11/16/2020 Atherosclerosis of coronary artery without angina pectoris ([facility]) 05/18/2021 Gastroesophageal reflux disease without esophagitis 07/09/2019 Gastroparesis 11/02/2022 Non-refractory idiopathic generalized epilepsy ([facility]) 11/22/2019 Osteoarthritis of knee 06/14/2019 Hypercholesterolemia ([facility]) 07/01/2021 Recurrent UTI 12/12/2022 Vitamin D deficiency 05/16/2019 Dizziness 12/13/2022 Acute nonintractable headache 12/13/2022 History of COVID-19 02/06/2023 Overweight 02/06/2023 Acute biliary pancreatitis without infection or necrosis 03/21/2023 Calculus of gallbladder without cholecystitis without obstruction 03/23/2023 Cholecystitis 04/18/2023 Encounter for postoperative care 04/18/2023 History of acute pancreatitis 04/18/2023 History of cholecystectomy 04/18/2023 Cough 04/18/2023 Anaphylactic syndrome 04/18/2023 PTSD (post-traumatic stress disorder) ([facility]) 02/24/2015 Tinea 10/03/2023 Weight gain 10/03/2023 Glucose intolerance 10/03/2023 Dyshidrosis 10/03/2023 Encounter for well adult exam without abnormal findings 12/04/2023 Cervical radiculopathy 12/26/2023 Obesity (BMI 35.0-39.9 without comorbidity) 02/06/2024 Localized edema 02/06/2024 Injury of right ankle 02/06/2024 Sprain of anterior talofibular ligament of right ankle 04/01/2024 Pain and swelling of left shoulder 04/03/2024 Asthmatic bronchitis with acute exacerbation ([facility]) 04/16/2024 Snoring 04/16/2024 Resolved Ambulatory Problems [...] CT ANGIOGRAM CHEST 07/30/2018 CT ANGIOGRAM CHEST [facility] DATA LEGACY EGD 06/30/2022 Normal hypopharynx, [...] nursing note reviewed. Exam conducted with a circus performer present. Vitals: Estimated body mass index is [...] Darwin Starr DO documented in this encounterCox [id number] History of Present illness Narrative* Iliana Mercado [...] she saw Dr. Hylton in 2021 in [facility]. 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 Hylton who is skating carhop We discussed seeing endocrinology to help with [...] -Fibroscan Iliana Mercado PA-C documented in this encounterWood County Hospital01-03-2025 NoteHNO ID: [id number] Author: ILIANA MERCADO PA-C Service: ? Author Type: Physician Planning Assistant Type: Progress Notes Filed: 04/26/2024 15:02 Note [...] she saw Dr. Hylton in 2021 in [facility]. 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 Hylton who is skating carhop We discussed seeing endocrinology to help with [...] Narrative I have pers (more content not included)...[facility]01-03-[facility] Instructions* Patient Instructions* Iliana Mercado PA-C [...] do not hesitate to send me a [employer] message or call. Iliana Mercado PA-C documented in this encounterWood County Hospital01-03-2025 NoteHNO ID: [id number] Author: LYDIA KELLEY, DO Service: ? Author [...] return to discuss consent (more content not included)...[facility]01[facility] History of Present illness Narrative* Lydia [...] treatment plan as discussed. Lydia Kelley D.O. M.P.HRajesh documented in this encounterWood County Hospital12-30-2024 Telephone encounter Note * Telephone Encounter - BALDO STRONG - 04/22/2024 9:58 AM EST Patient states she was seen in office on 04-16 and then later in the week she ended up at the Urgent Care due to her cough. She would like Eva Santos called in for her cough. [facility] [id number] Miscellaneous Notes* Telephone Encounter - BALDO STRONG - 04/22/2024 9:58 AM EST Patient states she was seen in office on 04-16 and then later in the week she ended up at the Urgent Care due to her cough. She would like Evagilberto Santos called in for her cough. documented in this encounterCox MonettQpiruwamxr71-49-1751 History of Present illness Narrative* Josephine Gilman NP - 04/18/2024 4:35 PM EST Images from the original note were not included. [address] , [address] [facility], [address] P: [phone] F: [phone] HPI Historian of [facility]: patient Orion Harper is a 33 y.o. [...] tablet; Refill: 0 documented in this encounterCox [id number] Telephone encounter Note* Telephone Encounter - Solo [...] she is unable to do the treadmill [facility] Work Phone: [phone] Miscellaneous Notes* Telephone Encounter - Solo Mora [...] to do the treadmill documented in this encounterWood County Hospital12-13-2024 Telephone encounter Note * Telephone Encounter - Criss Mccrary - 04/05/2024 1:01 PM EST Outside ep I have a copy @ my desk Criss Mccrary [facility]12-13-2024 Miscellaneous Notes* Telephone Encounter - Criss Holm - 04/05/2024 1:01 PM EST Outside ep I have a copy @ my desk Criss Mccrary documented in this encounterWood County Hospital12-11-2024 History of Present illness Narrative* Deena [...] DAY IN THE MORNING 30 tablet 2 Vtumcbhxpej-Inoxdjzeq-Tgjgin 100-62.5-25 MCG/ACT aerosol powder INHALE 1 PUFF [...] Diabetes Maternal Grandmother Analia Accidental Brother Jose Atnonio Harper Past Medical History: Diagnosis Date Abnormal [...] follow-ups on file. documented in this encounterCox [id number] Telephone encounter Note* Telephone Encounter - AlexisCriss Hyde - 04/02/2024 3:50 PM EST This 'Ankle Surgery Clearance' was faxed over to Dr. Giovani Hagen (PCP) @ [phone] for signing. I spoke with the patient. Scanned into outside ep. Criss Mccrary [facility]12-10-2024 Miscellaneous Notes* Telephone Encounter - Criss Holm - 04/02/2024 3:50 PM EST This 'Ankle Surgery Clearance' was faxed over to Dr. Giovani Hagen (PCP) @ [phone] for signing. I spoke with the patient. Scanned into outside ep. Criss Mccrary documented in this encounterWood County Hospital12-09-2024 Miscellaneous Notes* Telephone Encounter - Keri [...] follow up with Dr. Hylton who is skating carhop We discussed seeing endocrinology to help with [...] Thanks, Connie Lucas RN contains abnormal data [facility] LIVER PANEL Component Ref Range [...] ALBUMIN GLOBULIN RATIO 1.3 ontains abnormal data [facility] LIVER PANEL Component Ref Range [...] - 29 U/L 72 High Lipase Order: [id number] Component Ref Range & Units 1 yr ago Lipase 13 - 60 U/L 260 High Hepatic Function Panel Order: [id number] Component Ref Range & Units 1 yr [...] g/dL 5.7 Low Hepatic Function Panel Order: [id number] Component Ref Range & Units 1 yr [...] ntains abnormal data COMPREHENSIVE METABOLIC PANEL Order: [id number] Component Ref Range & Units 1 yr [...] Filt Rate >60 mL/min/1.73m2 >60 Lipase Order: [id number] Component Ref Range & Units 1 yr [...] follow up with Dr. Hylton who is skating carhop We discussed seeing endocrinology to help with [...] FRONTAL/LAT Carol Winn MD documented in this encounterWood County Hospital12-09-2024 Telephone encounter Note * Telephone Encounter - Keri Jamil - 04/01/2024 11:18 AM EST Pt called to schedule, per message below. First Est slot is July 26 for VV. Please review and advise if a New Pt slot can be used for this Pt. Thank you, [facility]12-09-2024 History of Present illness Narrative* Giovani [...] DAY IN THE MORNING 30 tablet 2 Gzipgbrbdbb-Xqsosforg-Arlcll 100-62.5-25 MCG/ACT aerosol powder INHALE 1 PUFF [...] follow-ups on file. documented in this encounterCox [id number] Telephone encounter Note* Telephone Encounter - Carol Winn MD - 03/29/2024 9:06 PM EST I saw her in the past for this Per my note, Was seen by Dr. Hylton locally Will obtain labs and fibroscan results She had Nausea and vomiting with statin Couldn't tolerate metformin due to nausea/vomiting and diarrhea She can still follow up with Dr. Hylton who is skating carhop We discussed seeing endocrinology to help with weight loss and insulin resistance We also discussed cutting back on ETOH to one drink a week (currently 3-4 drinks a week) Did she follow up with Dr. Hylton? She can schedule OV with me if she prefers [facility] Work Phone: [phone]) 962-624012-06-2024 Telephone encounter Note* Telephone Encounter - Connie Lucas RN - 03/29/2024 10:[address] Winn, Pt JESSE Dx Fatty Liver, Liver Disease PT sent MYC message requesting a follow up labs show elevated LFTs and wanted them reviewed Please advise Thanks, Connie Lucas, RN contains abnormal data [facility] LIVER PANEL Component Ref Range [...] ALBUMIN GLOBULIN RATIO 1.3 ontains abnormal data [facility] LIVER PANEL Component Ref Range [...] - 29 U/L 72 High Lipase Order: [id number] Component Ref Range & Units 1 yr ago Lipase 13 - 60 U/L 260 High Hepatic Function Panel Order: [id number] Component Ref Range & Units 1 yr [...] g/dL 5.7 Low Hepatic Function Panel Order: [id number] Component Ref Range & Units 1 yr [...] ntains abnormal data COMPREHENSIVE METABOLIC PANEL Order: [id number] Component Ref Range & Units 1 yr [...] Filt Rate >60 mL/min/1.73m2 >60 Lipase Order: [id number] Component Ref Range & Units 1 yr [...] follow up with Dr. Hylton who is skating carhop We discussed seeing endocrinology to help with [...] XR CHEST 2V FRONTAL/LAT Carol Winn MD [facility]12-04-2024 Telephone encounter Note* Telephone Encounter - VINH Roque - 03/27/2024 1:03 PM EST OARRS reviewed, Rx sent into patient's pharmacy. [id number] Miscellaneous Notes* Telephone Encounter - VINH Roque - 03/27/2024 1:03 PM EST OARRS reviewed, Rx sent into patient's pharmacy. * Telephone Encounter - Monet Motley MA - 03/27/2024 12:35 PM EST Per hieu to increase tramadol 50mg 2 po every 6 prn documented in this encounterCox MonettNvinskgljx08-56-9323 Telephone encounter Note* Telephone Encounter - Monet Motley MA - 03/27/2024 12:35 PM EST Per hieu to increase tramadol 50mg 2 po every 6 prn [facility] MonettQeaxaxnvda43-68-6684 Telephone encounter Note* Telephone Encounter - Giovani Hagen MD - 03/25/2024 3:59 PM EST Images from the original note were not included. Patient: Orion Harper : 1990 PCP: Giovani Hagen MD Orion Harper is a 33 y.o. female [facility]. The main problem [...] Flowsheet Row Patient Outreach from 01/17/2024 in [facility] with [facility] Information Discharge Date 01/10/24 Discharged To: Home Setting Discharge Hospital [facility] Engagement Call Start Time 1232 [...] Time 1233 No follow-ups on file. [facility] [id number] Miscellaneous Notes* Telephone Encounter - Giovani Hagen MD - 03/25/2024 3:59 PM EST Images from the original note were not included. Patient: Orion Harper : 1990 PCP: Giovani Hagen MD Orion Harper is a 33 y.o. female presenting today [facility]. The main problem [...] Flowsheet Row Patient Outreach from 01/17/2024 in [facility] with [facility] Information Discharge Date 01/10/24 Discharged To: Home Setting Discharge Hospital [facility] Engagement Call Start Time 1232 [...] in the chart. documented in this encounterCox [id number] Telephone encounter Note* Telephone Encounter - BALDO STRONG - 03/25/2024 1:02 PM EST Patient called asking about the results of her MRI, please advise. Results are in the chart. [id number] History of Present illness Narrative* Sandy Toribio [...] escitalopram (LEXAPRO) 20 mg, Oral, Every morning Mrbxpyjnnei-Jnfdpjbgh-Aoijln 100-62.5-25 MCG/ACT aerosol powder INHALE 1 PUFF [...] Attention deficit hyperactivity disorder, predominantly inattentive type ([facility]) 09/23/2022 Bipolar disorder, in partial remission, most recent episode manic ([facility]) 09/23/2022 Diverticular disease of colon 09/23/2022 Dysphagia 09/23/2022 Elevated liver enzymes 09/23/2022 Exercise induced bronchospasm ([facility]) 09/23/2022 Finding of above normal blood pressure 09/23/2022 History of hysterectomy 09/23/2022 Hyperglycemia 09/23/2022 Hypersexuality 09/23/2022 Insomnia 09/23/2022 Irritable bowel syndrome with constipation 09/23/2022 Mild intermittent asthma without complication ([facility]) 09/23/2022 Mood swings 09/23/2022 Nephrolithiasis 09/23/2022 Nonalcoholic steatohepatitis (ENGLISH) 09/23/2022 Other specified abnormal findings of blood chemistry 09/23/2022 Poor concentration 09/23/2022 Sacroiliitis, not elsewhere classified ([facility]) 09/23/2022 Skin pain 09/23/2022 Thyroid enlargement ([facility]) 09/23/2022 Atherosclerosis of aorta ([facility]) 06/16/2020 Atherosclerosis of both carotid arteries 11/16/2020 Atherosclerosis of coronary artery without angina pectoris ([facility]) 05/18/2021 Gastroesophageal reflux disease without esophagitis 07/09/2019 Gastroparesis 11/02/2022 Non-refractory idiopathic generalized epilepsy ([facility]) 11/22/2019 Osteoarthritis of knee 06/14/2019 Hypercholesterolemia ([facility]) 07/01/2021 Recurrent UTI 12/12/2022 Vitamin D deficiency 05/16/2019 Dizziness 12/13/2022 Acute nonintractable headache 12/13/2022 History of COVID-19 02/06/2023 Overweight 02/06/2023 Acute biliary pancreatitis without infection or necrosis 03/21/2023 Calculus of gallbladder without cholecystitis without obstruction 03/23/2023 Cholecystitis 04/18/2023 Encounter for postoperative care 04/18/2023 History of acute pancreatitis 04/18/2023 History of cholecystectomy 04/18/2023 Cough 04/18/2023 Anaphylactic syndrome 04/18/2023 PTSD (post-traumatic stress disorder) ([facility]) 02/24/2015 Tinea 10/03/2023 Weight gain 10/03/2023 [...] Abnormal LFTs Abnormal liver ultrasound 06/15/2022 Asthma ([facility]) COVID 03/11/2021 Delayed gastric emptying 09/12/2022 [...] nursing note reviewed. Exam conducted with a circus performer present. Vitals: Estimated body mass index is 34.93 kg/m as calculated from the following: Height as of 02/05/24: 5' 2 . Weight as of this [...] Darwin Starr DO documented in this encounterCox [id number] Telephone encounter Note* Telephone Encounter - VINH Roque - 03/07/2024 11:20 AM EST OARRS reviewed, Rx sent into patient's pharmacy. [facility] [id number] Miscellaneous Notes* Telephone Encounter - VINH Roque - 03/07/2024 11:20 AM EST OARRS reviewed, Rx sent into patient's pharmacy. documented in this encounterCox MonettMsiuxozypy55-53-7929 Telephone encounter Note* Telephone Encounter - VINH Roque - 03/07/2024 9:14 AM EST OARRS reviewed, Rx sent into patient's pharmacy. [id number] Miscellaneous Notes* Telephone Encounter - VINH Roque - 03/07/2024 9:14 AM EST OARRS reviewed, Rx sent into patient's pharmacy. * Telephone Encounter - Sasha Ng - 03/06/2024 4:22 PM EST ALPRAZolam (Xanax) 0.5 MG tablet [facility] documented in this encounterCox MonettBtsrvtnunv03-33-2972 History of Present illness Narrative* Arun Hernadez [...] to be instructed in home exercise program. Custodial Goals: To be met in 10 weeks [...] 2:57 PM EST documented in this encounterCox MonettZhoqnllwuv57-81-4415 Telephone encounter Note* Telephone Encounter - Sasha Ng - 03/06/2024 4:22 PM EST ALPRAZolam (Xanax) 0.5 MG tablet [id number] History of Present illness Narrative* Zhen Burgess, [...] to be instructed in home exercise program. Custodial Goals: To be met in 10 weeks [...] sign below. Date: documented in this encounterCox MonettEqiagfwtyu60-22-3633 History of Present illness Narrative* Giovani Hagen [...] same office Pt is still seeing dr copland Current Outpatient Medications on File Prior to [...] DAY IN THE MORNING 30 tablet 2 Vrenkwxlbjj-Klqtjhmkq-Tvvxzx 100-62.5-25 MCG/ACT aerosol powder INHALE 1 PUFF [...] CT ANGIOGRAM CHEST 07/30/2018 CT ANGIOGRAM CHEST [facility] DATA LEGACY EGD 06/30/2022 Normal hypopharynx, [...] follow-ups on file. documented in this encounterCox [id number] Telephone encounter Note* Telephone Encounter - Millicent Cordova - 01/29/2024 11:22 AM EDT 25 visits out to 10/21/24 [id number] Miscellaneous Notes* Telephone Encounter - Millicent Cordova - 01/29/2024 11:22 AM EDT 25 visits out to 10/21/24 documented in this encounterCox MonettSkktmjntkr13-29-6920 History of Present illness Narrative* Acacia Vigil, [...] escitalopram (LEXAPRO) 20 mg, Oral, Every morning Itwdqaakncs-Escfuundf-Woodiy 100-62.5-25 MCG/ACT aerosol powder INHALE 1 PUFF [...] constipation 09/23/2022 Mild intermittent asthma without complication ([facility]) 09/23/2022 Mood swings 09/23/2022 Nephrolithiasis 09/23/2022 Nonalcoholic steatohepatitis (ENGLISH) 09/23/2022 Other specified abnormal findings of blood chemistry 09/23/2022 Poor concentration 09/23/2022 Sacroiliitis, not elsewhere classified ([facility]) 09/23/2022 Skin pain 09/23/2022 Thyroid enlargement ([facility]) 09/23/2022 Atherosclerosis of aorta ([facility]) 06/16/2020 Atherosclerosis of both carotid arteries 11/16/2020 Atherosclerosis of coronary artery without angina pectoris ([facility]) 05/18/2021 Gastroesophageal reflux disease without esophagitis 07/09/2019 Gastroparesis 11/02/2022 Non-refractory idiopathic generalized epilepsy ([facility]) 11/22/2019 Osteoarthritis of knee 06/14/2019 Hypercholesterolemia ([facility]) 07/01/2021 Recurrent UTI 12/12/2022 Vitamin D deficiency 05/16/2019 Dizziness 12/13/2022 Acute nonintractable headache 12/13/2022 History of COVID-19 02/06/2023 Overweight 02/06/2023 Acute biliary pancreatitis without infection or necrosis 03/21/2023 Calculus of gallbladder without cholecystitis without obstruction 03/23/2023 Cholecystitis 04/18/2023 Encounter for postoperative care 04/18/2023 History of acute pancreatitis 04/18/2023 History of cholecystectomy 04/18/2023 Cough 04/18/2023 Anaphylactic syndrome 04/18/2023 PTSD (post-traumatic stress disorder) ([facility]) 02/24/2015 Tinea 10/03/2023 Weight gain 10/03/2023 [...] nursing note reviewed. Exam conducted with a circus performer present. Vitals: Estimated body mass index is [...] Darwin Starr DO documented in this encounterCox [id number] History of Present illness Narrative* Giovani Hagen [...] DAY IN THE MORNING 30 tablet 2 Zsvrdpxswmq-Gljxbviml-Tnwury 100-62.5-25 MCG/ACT aerosol powder INHALE 1 PUFF [...] follow-ups on file. documented in this encounterCox [id number] Telephone encounter Note* Telephone Encounter - Mala Hirsch - 01/08/2024 12:52 PM EDT [facility] [place] [facility]ettRmyamrfvdw26-15-8236 Miscellaneous Notes* Telephone Encounter - Mala Hirsch - 01/08/2024 12:52 PM EDT [facility] documented in this encounterCox MonettJccqxmonha00-07-0854 Hospital Discharge instructions Patient Education 12/28/2023 15:59:41 Kidney Stones, Zjci-gc-[id number] Kidney Stones Kidney stones are rock-like masses [...] Follow these instructions at home: Medicines Take wvor-wed-wyxnywf and prescription medicines only as told by [...] provider. Document Revised: 12/02/2022 Document Reviewed: 12/02/2022 [employer] Patient Education 2023 [employer]. Follow Up Care 11/07/2022 15:52:12 With:OLEG OSEI, BHAVESH Patterson, URL Address: When:1 year [facility] 09-03-2024 History of Present illness Narrative* Giovani [...] ER for possible subarachnoid hemorrhage * Monet Motley, PABLO - 12/26/2023 3:00 PM EDT Images from [...] DAY IN THE MORNING 30 tablet 2 Xeroqhpzcjn-Xjfmltvbj-Xbhttq 100-62.5-25 MCG/ACT aerosol powder INHALE 1 PUFF [...] follow-ups on file. documented in this encounterCox [id number] History of Present illness Narrative* Belle Mckoy Tech - 12/19/2023 3:44 PM EDT EVENT MONITOR DISPOSABLE PATCH INSTRUCTIONS Patient Name: Orion Harper [facility] Number: [id number] Skin prepped and cleansed with alcohol Patch secured to prepped area Monitor Activated Serial #: [id number] Patient Instructed: Prescribed order timeframe Bathing guidelines Usage of event button and diary documentation Return of monitor at the end of prescribed order Call with problems [phone] or [phone] ext. [phone] Patient expresses a good understanding of instructions Tristian Pretty documented [facility] Instructions* Patient Instructions* Solo Mora MD - 12/19/2023 3:27 PM EDT Next Steps: 1). Please wear a heart monitor for 2 weeks and mail it back 2). Please get a stress echo done and follow up with me afterwards documented in this encounterWood [facility]08-27-[facility] History of Present illness Narrative* Solo Mora MD - 12/19/2023 2:45 PM EDT Images from the original note were not included. [facility] [place] Meghna Hooker Department of Cardiovascular Medicine SECTION OF CARDIAC PACING and ELECTROPHYSIOLOGY OUTPATIENT VISIT DATE December 19, 2023 OUTPATIENT VISIT TYPE NEW PRIMARY CARE PHYSICIAN: Giovani Hagen MD [address] [place] [address] CHIEF COMPLAINT: Syncope, cardiac evaluation for family [...] had any workup done including Stress Echo, media monitor or 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 Reports symptoms of [...] had any workup done including Stress Echo, media monitor or 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 PLAN AND RECOMMENDATIONS: - Exercise stress echo for exertional syncope to rule out structural or arrhythmic cause - 2 week tina Fitzgerald personally interviewed, confirmed and edited the above information as obtained by others. CONTACT INFORMATION: Solo Mora MD documented in this encounterWood [facility]08-26-[facility]24 Telephone encounter Note * Telephone Encounter - RT. Aroldo Calvo - 12/18/2023 10:09 AM EDT Patient had labwork performed on 12-13-2023. Dr. Colvin wanted you to be aware so you could review them. [id number] Miscellaneous Notes* Telephone Encounter - RT. Aroldo Calvo - 12/18/2023 10:09 AM EDT Patient had labwork performed on 12-13-2023. Dr. Colvin wanted you to be aware so you could review them. documented in this encounterCox [id number] Telephone encounter Note* Telephone Encounter - Criss Mccrary - 11/02/2023 10:39 AM EDT Images from the original note were not included. Records are in Care Everywhere: EP Referral- 11/01/23 (Dr. Shilo Dillon/Cardiology) Criss Mccrary [facility] Miscellaneous Notes* Telephone Encounter - Criss Holm - 11/02/2023 10:39 AM EDT Images from the original note were not included. Records are in Care Everywhere: EP Referral- 11/01/23 (Dr. Shilo Dillon/Cardiology) Criss Mccrary documented in this encounterWood County Hospital11-27-2023 Miscellaneous Notes* Telephone Encounter - Charlette [...] PPI prior to transfer. documented in this encounterWood [facility] Hospital07-13-2023 Miscellaneous Notes* Telephone Encounter - Janny Frances - 11/03/2022 3:18 PM EDT PA for Ibsrela initiated electronically. Awaiting response [facility] ID# [id number] Rx BIN [id number] Rx PCN CLAIMCR Rx Grp STOH documented in this encounterWood County Hospital07-12-2023 History of Present illness Narrative* Soraida Caldwell, PhD - 11/02/2022 5:16 PM EDT [facility]al [facility] [place] Name: Orion Harper MR#: [id number] Date: 11/02/2022 Time: 1 hour Referred by: [...] therapist. Soraida Zhang, Ph.D. documented in this encounterWood County Hospital07-12-2023 History of Present illness Narrative* Samuel Freeman MD - 11/02/2022 1:00 PM EDT Assessment ASSESSMENT 32 year old female with medical refractory gastroparesis. PLAN I discussed surgical therapy for gastroparesis in detail. Orion Harper is candidate for furthermedical treatment. Needs to stop Wegovy May consider for wireless motility capsule study Constipation medication change per Dr. 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 DO Palomo Keller Sp Dd Clinical Pool Please ask her to see [employer] to r/o endometriosis there was a very slight abnormal wave (not strong) suggesting its possible Called and spoke with the patient and relayed providers message. documented in this encounterWood County Hospital06-27-2023 Miscellaneous Notes* Telephone Encounter - Karen Haney LPN - 10/18/2022 11:43 AM EDT PA initiated via [employer]. Await response. Covered: Retail, Mail Order Unknown: Specialty, Long-Term Care Group ID: [id number] Group name: BIN: [id number] PCN: CLAIMCR documented in this encounterWood County Hospital06-27-2023 History of Present illness Narrative* Maria Dolores Corey DO - 10/18/2022 7:49 AM EDT Images from the original note were not included. documented in this encounterWood County Hospital06-26-2023 Nurse Note* Janny Frances - 10/17/2022 10:47 AM EDT EGG completed. Able to drink the 500 ml of water without any difficulty. documented in this encounterWood County Hospital05-22-2023 History of Present illness Narrative* Oziel [...] 10:11AM PATIENT DISCHARGED TO: Ambulatory patient, left [place] department area. A Diagnostic radioactive procedure has taken place, with no further precautions necessary other than routine body substance precautions. More information regarding radiation safety can be found usingthis link: [email or web address] SIGNATURE: RT Amber(R) PATIENT NAME: Orion Harper DATE: September 12, 2022 TIME: 2:45 PM PAGER/CONTACT #: documented in this encounterWood County Hospital05-10-2023 Nurse Note* Wilma Limon RN - [...] Wilma Limon RN In Department: AMBULATORY SURGERY [facility] Nurse Note* Wilma Limon RN - [...] In Department: AMBULATORY SURGERY documented in this encounterWood County Hospital05-10-2023 History and physical note * Carol [...] DATE: August 31, 2022 TIME: 2:51 PM [facility] History and physical note* Carol Winn [...] 2022 TIME: 2:51 PM documented in this encounterWood County Hospital05-10-2023 Nurse Note* Ayleen Aj RN - [...] Ayleen Aj RN In Department: AMBULATORY SURGERY [facility] Miscellaneous Notes* Telephone Encounter - Светлана Agosto Ma - 08/24/2022 3:59 PM EDT Lm to confirm procedure for 08-31-22 documented in this encounterWood County Hospital03-14-2023 Hospital Discharge instructions Patient Education 07/05/2022 [...] Urology [address] [place] [address]- Business (1) When:11/04/2022 08:39:10 Comments:With a stone metabolic work-up [facility]03-09-2023 Nurse Note* Wilma Limon RN - 06/30/2022 12:46 PM EST Pt denies any nausea at this time. Pt given 3 oz of apple juice per request and tolerating at this time. Pt denies any other s/s at this time, smiling in conversation, 500ml of Nacl completed as well. Pt reports she feels ready to go home. [facility] Nurse Note* Wilma Limon RN - [...] In Department: AMBULATORY SURGERY documented in this encounterWood County Hospital03-09-2023 Nurse Note* Wilma Limon RN - [...] Pt resting in bed at this time. [facility]03-09-2023 Nurse Note* Wilma Limon RN - [...] By: Wilma Limon In Department: AMBULATORY SURGERY [facility]03-09-2023 History and physical note* Carol Winn [...] DATE: June 30, 2022 TIME: 11:35 AM [facility]03-[facility] History and physical note* Carol Winn [...] 2022 TIME: 11:35 AM documented in this encounterWood [facility] Hospital03-09-2023 Nurse Note* Elissa Kwok RN - [...] Elissa Kwok RN In Department: AMBULATORY SURGERY [facility]03-02-2023 Miscellaneous Notes* Telephone Encounter - Светлана Agosto Ma - 06/23/2022 3:18 PM EST Confirmed procedure for 06-30-22 documented in this encounterWood County Hospital02-22-2023 History of Present illness Narrative* Monet [...] 15, 2022 8:08 PM documented in this encounterWood County Hospital02-21-2023 Miscellaneous Notes* Telephone Encounter - Wilma Murray RN - 06/14/2022 9:56 AM EST Images from the original note were not included. RANDALL Atkins to schedule follow up US And [...] Carol Winn MD 06/14/2022 9:29 AM EST Or Milly, the CT scan showed Fatty liver [...] if needed pending results documented in this encounterWood County Hospital02-17-2023 History of Present illness Narrative* Diamond [...] 10, 2022 10:01 AM documented in this encounterWood County Hospital02-03-2023 History of Present illness Narrative* Acacia [...] 27, 2022 12:29 PM documented in this encounterWood County Hospital02-03-2023 History of Present illness Narrative* Carol [...] follow up with Dr. 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 documented in this encounterWood County Hospital01-10-2023 Evaluation note* Encounter Date Diagnosis Assessment Notes Treatment Notes Treatment Clinical Notes Apr, ENGLISH (nonalcoholic steatohepatitis) (ICD-10 - K75.81) Apr, Abnormal ultrasound (ICD-10 - R93.89) Apr, Elevated liver enzymes (ICD-10 - R74.8) Apr, Liver cyst (ICD-10 - K76.89) [place] YR.MRKT Other Evaluation + Plan note Future Appointments Appointment Date:06/30/2022 10:00:00 AM Scheduled Provider: Location:[facility] Appointment Type:Urology CALL PAT FT Appointment Date:07/05/2022 08:15:00 AM Scheduled Provider: Location:[facility] Appointment Type:Urology FT Diagnostic Tests Pending * Urine Culture [facility] Future Appointments Appointment Date:11/07/2022 03:15:00 PM Scheduled Provider:Madhuri MISHRA MD Location:[facility] Appointment Type:URO [facility] Future Appointments Appointment Date:12/30/2024 03:15:00 PM Scheduled Provider:Madhuri MISHRA MD Location:[facility] Appointment Type:URO Office Visit [facility] evaluation + Plan note Future Appointments Appointment Date:12/31/2024 03:30:00 PM Scheduled Provider:Iliana Cramer PA-C Location:[facility] Appointment Type:URO Complex Office Visit [facility] evaluation + Plan note Future Appointments Appointment Date:12/31/2025 03:30:00 PM Scheduled Provider:Iliana Cramer PA-C Location:[facility] Appointment Type:URO Office Visit [facility] evaluation noteNo assessment information available [facility] Work Phone: Evaluation note* Diagnosis Fatty liver- Primary Other chronic nonalcoholic liver disease Bilious vomiting with nausea Right sided abdominal pain Abdominal pain, unspecified site Nausea Nausea alone History of diverticulitis SOB (shortness of breath) Shortness of breath documented in this encounter [facility]* Diagnosis Liver lesion- Primary Other specified disorders of liver documented in this encounter [facility]* Diagnosis Gastroparesis- Primary documented in this encounter [facility]* Diagnosis Gastroparesis- Primary [facility] Diagnosis Irritable bowel syndrome with constipation- Primary Irritable bowel syndrome [facility] Diagnosis Gastroparesis [facility]* Diagnosis Gastroparesis- Primary [facility]* Diagnosis SOB (shortness of breath) Shortness of breath [facility]* Diagnosis Liver lesion Other specified disorders of liver [facility] Diagnosis Elevated LFTs Other abnormal blood chemistry documented in this encounter [facility]* Diagnosis Bilious vomiting with nausea Right sided abdominal pain Abdominal pain, unspecified site Nausea Nausea alone [facility]* Diagnosis Nausea Nausea alone [facility]* Diagnosis Gastroparesis- Primary documented [facility] this encounter [facility]* Diagnosis Syncope and collapse- Primary [facility]* Diagnosis Syncope, unspecified syncope type- Primary documented [facility] this [facility]* Diagnosis Syncope, unspecified syncope type- Primary documented [facility] this encounter [facility]* Diagnosis Nausea- Primary Nausea alone PUD (peptic ulcer disease) Peptic ulcer, unspecified site, unspecified as acute or chronic, without mention of hemorrhage, perforation, or obstruction Nausea Nausea alone [facility]* Diagnosis PUD (peptic ulcer disease)- Primary Peptic ulcer, unspecified site, unspecified as acute or chronic, without mention of hemorrhage, perforation, or obstruction Bilious vomiting with nausea Right sided abdominal pain Abdominal pain, unspecified site Nausea- Primary Nausea alone PUD (peptic ulcer disease) Peptic ulcer, unspecified site, unspecified as acute or chronic, without mention of hemorrhage, perforation, or obstruction [facility]* Diagnosis Attention deficit hyperactivity [...] episode manic (CMS/HCC) [facility]* Diagnosis Attention deficit hyperactivity disorder, predominantly [...] Cystitis Unspecified cystitis [facility] encounter [facility]* Diagnosis Attention deficit [...] asthma (CMS/HCC)- Primary [facility]* Diagnosis Elevated LFTs- Primary Other abnormal blood chemistry BRBPR (bright red blood per rectum) Hemorrhage of rectum and anus documented [facility] this encounter [facility]* Diagnosis Attention deficit hyperactivity disorder, [...] inattentive type (CMS/HCC) documented in this encounter [facility]* Diagnosis Attention deficit hyperactivity [...] 35.0-39.9 without comorbidity) documented in this encounter [facility]* Diagnosis Elevated LFTs- Primary Other abnormal blood chemistry [facility]* Diagnosis Elevated LFTs- Primary Other abnormal blood chemistry documented [facility] this encounter [facility]* Diagnosis Attention deficit hyperactivity disorder, [...] Moderate persistent asthmatic bronchitis with acute exacerbation ([facility]/HCC)- Primary Sprain of anterior talofibular ligament of right ankle, subsequent encounter Snoring Other dyspnea and respiratory abnormality Peroneal tendon tear, right, initial encounter- Primary Sprain of anterior talofibular ligament of right ankle, subsequent encounter Osteochondritis dissecans of ankle, right Severe ankle sprain, right, initial encounter [facility]* Diagnosis Right ankle instability- Primary Other joint derangement, not elsewhere classified, ankle and foot Right ankle instability Other joint derangement, not elsewhere classified, ankle and foot documented [facility] encounter [facility]* Diagnosis Sprain of anterior talofibular ligament of right ankle, initial encounter- Primary Right ankle instability Other joint derangement, not elsewhere classified, ankle and foot documented [facility] this encounter [facility]* Diagnosis Attention deficit [...] spine- Primary [facility]* Diagnosis ENGLISH (nonalcoholic steatohepatitis)- Primary Other chronic nonalcoholic liver disease Right ankle instability Other joint derangement, not elsewhere classified, ankle and foot documented [facility] encounter [facility]* Diagnosis Attention deficit hyperactivity disorder, [...] cervix and uterus documented in this encounter [facility]* Diagnosis BRBPR (bright red blood per rectum) Hemorrhage of rectum and anus documented [facility]* Diagnosis Attention deficit hyperactivity disorder, [...] following unspecified surgery documented in this encounter [facility]* Diagnosis Attention deficit hyperactivity [...] of impulse control PTSD (post-traumatic stress disorder) ([facility]) Posttraumatic stress disorder [facility]* Diagnosis Other specified dyspareunia- Primary Pelvic pain in female Unspecified symptom associated with female genital organs Pelvic pain in female- Primary Unspecified symptom associated with female genital organs Other specified dyspareunia documented [facility] encounter [facility]* Diagnosis Pelvic pain in female- Primary Unspecified symptom associated with female genital organs Other specified dyspareunia documented [facility] encounter [facility]* Diagnosis Chronic idiopathic constipation Unspecified constipation documented [facility] this [facility]* Diagnosis Attention deficit hyperactivity disorder, predominantly inattentive type (CMS/HCC)- Primary Bipolar disorder, in partial remission, most recent episode manic ([facility]/HCC) Dizziness Dizziness and giddiness Nonintractable episodic headache, [...] in partial remission, most recent episode manic ([facility]/HCC) Tremors of nervous system- Primary Mild intermittent asthma without complication ([facility]/HCC) Moderate persistent asthmatic bronchitis with acute exacerbation ([facility]/HCC)- Primary Sprain of anterior talofibular ligament of right ankle, subsequent encounter Snoring Other dyspnea and respiratory abnormality 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[facility]/HCC)- Primary 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), predominantly inattentive type ([facility]/HCC) Bipolar disorder, in partial remission, most recent episode manic ([facility]/HCC) Prediabetes Other abnormal glucose Anxiety- Primary Anxiety state, unspecified Generalized idiopathic epilepsy and epileptic syndromes, not intractable, without status epilepticus ([facility]) 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 PTSD (post-traumatic stress disorder) ([facility]) Posttraumatic stress disorder Peroneal tendon tear, right, initial encounter- Primary Right ankle instability Other joint derangement, not elsewhere classified, ankle and foot Contracture of right ankle [facility]* Diagnosis Attention deficit hyperactivity disorder, predominantly inattentive type (CMS/HCC)- Primary Bipolar disorder, in partial remission, most recent episode manic ([facility]) Dizziness Dizziness and giddiness Nonintractable episodic headache, unspecified headache type Attention deficit hyperactivity disorder, predominantly inattentive type (CMS/HCC)- Primary Anxiety Anxiety state, unspecified Bipolar disorder, in partial remission, most recent episode manic ([facility]/HCC) History of cholecystectomy Other acquired absence of organ History of acute pancreatitis Anaphylaxis, sequela Cough, unspecified type Bipolar disorder, in partial remission, most recent episode manic ([facility]/HCC)- Primary Attention deficit hyperactivity disorder (ADHD), predominantly inattentive type (CMS/HCC) Attention deficit hyperactivity disorder, predominantly inattentive type ([facility]/HCC) Anxiety Anxiety state, unspecified Encounter for well [...] of impulse control PTSD (post-traumatic stress disorder) ([facility]/HCC) Posttraumatic stress disorder Anxiety Anxiety state, unspecified PTSD (post-traumatic stress disorder) ([facility]) Posttraumatic stress disorder documented in this [...] subsequent encounter- Primary documented in this encounter [facility]* Diagnosis Palpitation- Primary Palpitations [facility]* Diagnosis Attention deficit hyperactivity disorder, [...] in partial remission, most recent episode manic (/HCC)- Primary Attention deficit hyperactivity disorder (ADHD), predominantly [...] system- Primary Mild intermittent asthma without complication ([facility]/HCC) Moderate persistent asthmatic bronchitis with acute exacerbation ([facility]/)- Primary Sprain of anterior talofibular ligament of right ankle, subsequent encounter Snoring Other dyspnea and respiratory abnormality 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[facility])- Primary 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), predominantly inattentive type ([facility]/HCC) Bipolar disorder, in partial remission, most recent episode manic ([facility]) Prediabetes Other abnormal glucose Anxiety- Primary Anxiety state, unspecified Generalized idiopathic epilepsy and epileptic syndromes, not intractable, without status epilepticus ([facility]) 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 PTSD (post-traumatic stress disorder) ([facility]) Posttraumatic stress disorder 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[facility])- Primary Agoraphobia with panic disorder Anxiety [...] Moderate persistent asthmatic bronchitis with acute exacerbation ([facility]/HCC)- Primary Sprain of anterior talofibular ligament of [...] complication, sequela- Primary [facility] Rectal pain- Primary Anal or rectal pain Hemorrhoids, unspecified hemorrhoid type [facility] Attention deficit hyperactivity disorder, [...] Moderate persistent asthmatic bronchitis with acute exacerbation ([facility]/HCC)- Primary Sprain of anterior talofibular ligament of [...] with panic disorder documented in this encounter [facility]* Diagnosis Pelvic floor dysfunction- Primary Pelvic muscle wasting Chronic constipation Unspecified constipation Gastroparesis [facility] Diagnosis Attention deficit hyperactivity disorder, [...] of status migrainosus [facility] Diagnosis Muscle spasm- Primary Spasm of muscle Pelvic floor dysfunction Pelvic muscle wasting Chronic constipation Unspecified constipation [facility] Diagnosis Pelvic floor dysfunction Pelvic muscle wasting Chronic constipation Unspecified constipation [facility] Diagnosis Pelvic floor dysfunction Pelvic muscle wasting Chronic constipation Unspecified constipation [facility] Diagnosis Pelvic floor dysfunction Pelvic muscle wasting Chronic constipation Unspecified constipation [facility] Diagnosis Attention deficit [...] Morbid (severe) obesity due to excess calories ([facility]-HCC) Impaired fasting glucose Obesity, class 2 Body mass index (BMI) 36.0-36.9, adult documented in this encounter [facility]* Diagnosis Attention deficit [...] Morbid (severe) obesity due to excess calories ([facility]-HCC) Impaired fasting glucose Obesity, class 2 Body [...] Morbid (severe) obesity due to excess calories ([facility]-H[facility]) Impaired fasting glucose Obesity, class 2 Body [...] Morbid (severe) obesity due to excess calories ([facility]-H[facility]) Impaired fasting glucose Obesity, class 2 Body mass index (BMI) 36.0-36.9, adult Other synovitis and tenosynovitis, right ankle and foot- Primary Right foot pain Pain in soft tissues of limb Other enthesopathy of right foot and ankle [facility] Diagnosis Chronic pelvic pain in female- [...] female genital organs [facility] Diagnosis Attention deficit hyperactivity disorder, [...] epileptic syndromes, not intractable, without status epilepticus ([facility]) Trichotillomania Other disorder of impulse control PTSD [...] Morbid (severe) obesity due to excess calories ([facility]) Impaired fasting glucose Obesity, class 2 Body mass index (BMI) 36.0-36.9, adult Well adult health check- Primary Unspecified general medical examination Chest pain, unspecified type Elevated liver enzymes Other nonspecific abnormal serum enzyme levels Type 2 diabetes mellitus without complication, without long-term current use of insulin ([facility]) [facility] [...] system- Primary Mild intermittent asthma without complication ([facility]) Moderate persistent asthmatic bronchitis with acute [...] epileptic syndromes, not intractable, without status epilepticus ([facility]) Trichotillomania Other disorder of impulse control PTSD [...] Morbid (severe) obesity due to excess calories ([facility]) Impaired fasting glucose Obesity, class 2 Body mass index (BMI) 36.0-36.9, adult Well adult health check- Primary Unspecified general medical examination Chest pain, unspecified type Elevated liver enzymes Other nonspecific abnormal serum enzyme levels Type 2 diabetes mellitus without complication, without long-term current use of insulin ([facility]) Moderate persistent asthma with acute exacerbation (HCC)- Primary documented in this encounter [facility]* Diagnosis Attention deficit [...] Morbid (severe) obesity due to excess calories ([facility]) Impaired fasting glucose Obesity, class 2 Body mass index (BMI) 36.0-36.9, adult Well adult health check- Primary Unspecified general medical examination Chest pain, unspecified type Elevated liver enzymes Other nonspecific abnormal serum enzyme levels Type 2 diabetes mellitus without complication, without long-term current use of insulin ([facility]) Other synovitis and tenosynovitis, right ankle and foot- Primary Other enthesopathy of right foot and ankle [...] Morbid (severe) obesity due to excess calories ([facility]-H[facility]) Impaired fasting glucose Obesity, class 2 Body mass index (BMI) 36.0-36.9, adult Well adult health check- Primary Unspecified general medical examination Chest pain, unspecified type Elevated liver enzymes Other nonspecific abnormal serum enzyme levels Type 2 diabetes mellitus without complication, without long-term current use of insulin (HCC) Major depressive disorder, recurrent, moderate (HCC) Major [...] Morbid (severe) obesity due to excess calories ([facility]) Impaired fasting glucose Obesity, class 2 Body mass index (BMI) 36.0-36.9, adult Well adult health check- Primary Unspecified general medical examination Chest pain, unspecified type Elevated liver enzymes Other nonspecific abnormal serum enzyme levels Type 2 diabetes mellitus without complication, without long-term current use of insulin (HCC) Attention deficit hyperactivity disorder (ADHD), predominantly inattentive type Bipolar disorder, in partial remission, most recent episode manic (HCC) 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 [facility] N[facility]ative - Reported* Type Description Date Medical History Anxiety Medical History Depression Medical History Diverticulosis Medical History bipolar Surgical History C section Surgical History hysterectomy Hospitalization History see above Hospitalization History diverticulitis 01/24/18 Hospitalization History NONE ON THE LAST YEAR [employer] Other Hospital course Narrative No data available for this section [facility] No data available for this section [facility] No data available for this section [facility] (narrative)* Outpatient Procedure (Routine) - Authorized Specialty Diagnoses / Procedures Referred By Norma t Referred To Contact [facility] Diagnoses Bilious vomiting with nausea Right sided abdominal pain Procedures EGD DIAGNOSTIC ESOPHAGOGASTRODUODENOSC [place] [address] [place] [address] [facility] [address] [place] [address] Referral ID Status Reason Start Date Expiration Date Visits Requested Visits Authorized [id number] Authorized Auto-Generat ed Referral 05/27/2022 05/27/2023 1 1 * MRI/CT (Routine) - Authorized Specialty Diagnoses / Procedures Referred By Contac t Referred To Contact CT IMAGING Diagnoses Bilious vomiting with nausea Right sided abdominal pain Nausea Procedures CT ABD/PEL WO IVCON CT ABD & [place] [address] [place] [address] Ct Imaging Referral ID Status Reason Start Date Expiration Date Visits Requested Visits Authorized [id number] Authorized Auto-Generat ed Referral 05/27/2022 06/26/2023 1 1 [facility] for referral (narrative)* Diagnostic Procedure Only (Routine) - Authorized Specialty Diagnoses / Procedures Referred By Contac t Referred To Contact US IMAGING Diagnoses Liver lesion Procedures US ABD RT UPPER QUADRANT US ABDOMINAL REAL TIME W/IMAGE LIMITED Carol Winn [place] [id number] [place] [address] Us Imaging Referral ID Status Reason Start Date Expiration Date Visits Requested Visits Authorized [id number] Authorized Auto-Generat ed Referral 06/14/2022 07/14/2023 1 1 [facility] for referral (narrative)* Diagnostic Procedure Only (Routine) - Closed Specialty Diagnoses / Procedures Referred By Contac t Referred To Contact US IMAGING Diagnoses Liver lesion Procedures US ABD RT UPPER QUADRANT US ABDOMINAL REAL [place] W/[place] [address] [place] [address] [place] [address] Referral ID Status Reason Start Date Expiration Date V isits Requested Visits Authorized [id number] Closed Auto-Generate d Referral 06/14/2022 07/14/2023 1 1 [facility] for referral (narrative)* Diagnostic Procedure Only (Routine) - Closed Specialty Diagnoses / Procedures Referred By Contac t Referred To Contact US IMAGING Diagnoses Elevated LFTs Procedures US ABD RT UPPER QUADRANT US ABDOMINAL REAL [place] W/[place] [address] [place] [address] Us Imaging [facility] Referral ID Status Reason Start Date Expiration Date V isits Requested Visits Authorized [id number] Closed Auto-Generate d Referral 11/24/2021 12/24/2022 1 1 T [facility] for referral (narrative)* Diagnostic Procedure Only (Routine) - Closed Specialty Diagnoses / Procedures Referred By Contac t Referred To Contact [facility] Diagnoses Nausea Procedures NM GASTRIC EMPTYING SOLID [place]STR[place] [address] [place] [address] [facility] [address] [id number] Referral ID Status Reason Start Date Expiration Date V isits Requested Visits Authorized [id number] Closed Auto-Generate d Referral 08/31/2022 09/30/2023 1 1 [facility] for referral (narrative)* Outpatient Procedure (Routine) - Authorized Specialty Diagnoses / Procedures Referred By Contac t Referred To Contact [facility] Diagnoses Gastroparesis Procedures ECG COMPLETE ECG ROUTINE ECG W/LEAST 12 LDS W/I&R Solo Mora MD [address] [place] [address] [facility] [address] [address] Referral ID Status Reason Start Date Expiration Date Visits Requested Visits Authorized [id number] Authorized Auto-Generat ed Referral 11/02/2023 11/01/2024 1 1 [facility] for referral (narrative)* Outpatient Procedure (Routine) - Authorized Specialty Diagnoses / Procedures [facility] Diagnoses Syncope and collapse Procedures ECG COMPLETE ECG ROUTINE ECG W/LEAST 12 LDS W/I&R Solo Mora MD [address] [place] [address] [facility] [place] [address] Referral ID Status Reason Start Date Expiration Date Visits Requested Visits Authorized [id number] Authorized Auto-Generat ed Referral 12/19/2023 12/18/2024 1 1 [facility] for referral (narrative)* Diagnostic Procedure Only (Routine) - Closed Specialty Diagnoses / Procedures [facility] Ref[facility] To Contact [facility] Diagnoses Nausea Procedures NM GASTRIC EMPTYING SOLID [place] [address] [place] [address] [facility] [address] [place], [place] [id number] Referral ID Status Reason Start Date Expiration Date V isits Requested Visits Authorized [id number] Closed Auto-Generate d Referral 08/31/2022 09/30/2023 1 1 * Outpatient Procedure (Routine) - Closed Specialty Diagnoses / Procedures [facility] Referred To Contact [facility] Diagnoses PUD (peptic ulcer disease) Procedures EGD DIAGNOSTIC ESOPHAGOGASTRODUODENOSC OPY [place] [address] [place] [address] [facility] [address] [place] [address] Referral ID Status Reason Start Date Expiration Date V isits Requested Visits Authorized [id number] Closed Auto-Generate d Referral 06/30/2022 07/01/2023 1 1 [facility] for referral (narrative)* Outpatient Procedure (Routine) - Closed Specialty Diagnoses / Procedures Referred By Contac t Referred To Contact [facility] Diagnoses PUD (peptic ulcer disease) Procedures EGD DIAGNOSTIC ESOPHAGOGASTRODUODENOSC OPY [place] [address] [place] [address] [address] Referral ID Status Reason Start Date Expiration Date V isits Requested Visits Authorized [id number] Closed Auto-Generate d Referral 06/30/2022 07/01/2023 1 1 * Outpatient Procedure (Routine) - Closed Specialty Diagnoses / Procedures Referred By Contac t Referred To Contact [facility] Diagnoses Bilious vomiting with nausea Right sided abdominal pain Procedures EGD DIAGNOSTIC ESOPHAGOGASTRODUODENOSC OPY [place] [address] [place] [address] [address] Referral ID Status Reason Start Date Expiration Date V isits Requested Visits Authorized [id number] Closed Auto-Generate d Referral 05/27/2022 05/27/2023 1 1 [facility] for referral (narrative)* Outpatient Procedure (Routine) - Authorized Specialty Diagnoses / Procedures Referred By Contac t Referred To Contact [facility] Diagnoses BRBPR (bright red blood per rectum) Procedures COLONOSCOPY DIAGNOSTIC COLONOSCOPY FLX DX W/COLLJ SPEC WHEN PFRMD Iliana Mercado PA-C [address] [place] [address] [address] Referral ID Status Reason Start Date Expiration Date Visits Requested Visits Authorized [id number] Authorized Auto-Generat ed Referral 04/26/2024 04/26/2025 1 1 * Outpatient Procedure (Routine) - Authorized Specialty Diagnoses / Procedures Referred By Contac t Referred To Contact [facility] Diagnoses Elevated LFTs Procedures DDI VIBRATION CONTROLLED TRANSIENT ELASTOGRAPHY (VCTE) LIVER ELASTOGRAPHY W/O IMAG W/I&R Iliana Mercado PA-C [address] [place] [address] [address] Referral ID Status Reason Start Date Expiration Date Visits Requested Visits Authorized [id number] Authorized Auto-Generat ed Referral 04/26/2024 04/26/2025 1 1 [facility] for referral (narrative)* Outpatient Procedure (Routine) - Pending Review Specialty Diagnoses / Procedures Referred By Contac t Referred To Contact [facility] Diagnoses ENGLISH (nonalcoholic steatohepatitis) Procedures LIVER BIOPSY NEEDLE BIOPSY LIVER NEEDLE PERCUTANEOUS Rosario Mcconnell I, MD [address] [place] [address] [address] Referral ID Status Reason Start Date Expiration Date Visits Requested Visits Authorized [id number] Pending Review Auto-Generat ed Referral 05/14/2024 05/14/2025 1 1 [facility] for referral (narrative)* Outpatient Procedure (Routine) - Closed Specialty Diagnoses / Procedures Referred By Contac t Referred To Contact [facility] Diagnoses BRBPR (bright red blood per rectum) Procedures COLONOSCOPY DIAGNOSTIC COLONOSCOPY FLX DX W/COLLJ SPEC WHEN PFRMD Iliana Mercado PA-C [address] [place] [address] [facility] [address] [place] [address] Referral ID Status Reason Start Date Expiration Date V isits Requested Visits Authorized [id number] Closed Auto-Generate d Referral 04/26/2024 04/26/2025 1 1 [facility] for visit NarrativePATIENT HERE AT THE REQUEST OF DR. HAGEN FOR ENGLISH & ABNORMAL US. ULTRASOUND AND LABS IN REFERRAL. PATIENT STATES SHE FEELS LETHARGIC & HAS OCCASIONAL ABDOMINAL PA[place] YR.MRKT Other Reason for visit Narrative* Diagnostic Procedure Only (Routine) - Closed Specialty Diagnoses / Procedures Referred By Contac t Referred To Contact US IMAGING Diagnoses Liver lesion Procedures US ABD RT UPPER QUADRANT US ABDOMINAL REAL [place] W/[place] [address] [place] [address] [place] [address] Referral ID Status Reason Start Date Expiration Date V isits Requested Visits Authorized [id number] Closed Auto-Generate d Referral 06/14/2022 07/14/2023 1 1 [facility] for visit Narrative* Diagnostic Procedure Only (Routine) - Closed Specialty Diagnoses / Procedures Referred By Contac t Referred To Contact US IMAGING Diagnoses Elevated LFTs Procedures US ABD RT UPPER QUADRANT US ABDOMINAL REAL [place] W/[place] [address] [place] [address] [place] [address] Referral ID Status Reason Start Date Expiration Date V isits Requested Visits Authorized [id number] Closed Auto-Generate d Referral 11/24/2021 12/24/2022 1 1 [facility] for visit Narrative* Diagnostic Procedure Only (Routine) - Closed Specialty Diagnoses / Procedures Referred By Contac t Referred To Contact [facility] Diagnoses Nausea Procedures NM GASTRIC EMPTYING SOLID GASTRIC EMPTYING STUDY Carol Winn [place] [address] [place] [address] [facility] [address] [place] [address] Referral ID Status Reason Start Date Expiration Date V isits Requested Visits Authorized [id number] Closed Auto-Generate d Referral 08/31/2022 09/30/2023 1 1 [facility] for visit Narrative* Outpatient Procedure (Routine) - Closed Specialty Diagnoses / Procedures Referred By Norma t Referred To Contact [facility] Diagnoses PUD (peptic ulcer disease) Procedures EGD DIAGNOSTIC ESOPHAGOGASTRODUODENOSC OPY [place] [address] [place] [address] [facility] [address] [address] Referral ID Status Reason Start Date Expiration Date V isits Requested Visits Authorized [id number] Closed Auto-Generate d Referral 06/30/2022 07/01/2023 1 1 [facility] for visit Narrative* Outpatient Procedure (Routine) - Closed Specialty Diagnoses / Procedures Referred By Norma kennedy Referred To Contact [facility] Diagnoses Bilious vomiting with nausea Right sided abdominal pain Procedures EGD DIAGNOSTIC ESOPHAGOGASTRODUODENOSC OPY [place] [address] [place] [address] [facility] Disease [address] [address] Referral ID Status Reason Start Date Expiration Date V isits Requested Visits Authorized [id number] Closed Auto-Generate d Referral 05/27/2022 05/27/2023 1 1 [facility] for visit Narrative* Rehabilitation - Outpatient (Routine) - Authorized Specialty Diagnoses / Procedures Referred By Norma t Referred To Contact Physical Therapy Diagnoses Cervical radiculopathy Procedures RI OFFICE/OUTPATIENT [facility] 60 MINUTES Giovani Hagen MD [address] [facility] [address] [place] [address] Phone: tel: fax: Zhen Burgess, PT [address] [facility] [address] [place] [address] Phone: tel: fax: Referral ID Status Reason Start Date Expiration Date Visits Requested Visits Authorized [id number] Authorized Specialty Services Required 01/25/2024 10/21/2024 25 25 [facility]* Rehabilitation - Outpatient (Routine) - Authorized Specialty Diagnoses / Procedures Referred By Contac t Referred To Contact Physical Therapy Diagnoses Cervical radiculopathy Unspecified injury of right ankle, subsequent encounter Procedures RI OFFICE/OUTPATIENT [facility] 60 MINUTES Giovani Hagen MD [address] [facility] [address] [place] [address] Phone: tel: fax: Zhen Burgess, PT [address] [facility] [address] [place] [address] Phone: tel: fax: Referral ID Status Reason Start Date Expiration Date Visits Requested Visits Authorized [id number] Authorized Specialty Services Required 01/25/2024 10/21/2024 25 25 [facility] HealthcareReason for visit Narrative* Outpatient Procedure (Routine) - Closed Specialty Diagnoses / Procedures Referred By Norma t Referred To Contact [facility] Diagnoses Elevated LFTs Procedures DDI VIBRATION CONTROLLED TRANSIENT ELASTOGRAPHY (VCTE) LIVER ELASTOGRAPHY W/O IMAG W/I&R Iliana Mercado PA-C [address] [place] [address] [facility] [address] [place] [address] Referral ID Status Reason Start Date Expiration Date V isits Requested Visits Authorized [id number] Closed Auto-Generate d Referral 04/26/2024 04/26/2025 1 1 [facility] for visit Narrative* Outpatient Procedure (Routine) - Closed Specialty Diagnoses / Procedures Referred By Norma t Referred To Contact [facility] Diagnoses BRBPR (bright red blood per rectum) Procedures COLONOSCOPY DIAGNOSTIC COLONOSCOPY FLX DX W/COLLJ SPEC WHEN PFRMD Iliana Mecrado PA-C [address] [place] [address] [facility] [address] [place] [address] Referral ID Status Reason Start Date Expiration Date V isits Requested Visits Authorized [id number] Closed Auto-Generate d Referral 04/26/2024 04/26/2025 1 1 [facility] for visit Narrative* Diagnostic Procedure Only (Routine) - Closed Specialty Diagnoses / Procedures Referred By Contac t Referred To Contact [facility] Diagnoses Other specified dyspareunia Pelvic pain in female Procedures PELVIC US WHI US PELVIC NONOBSTETRIC REAL-TIME IMAGE COMPLETE Javy Boudreaux MD [address] [address] Phone: tel: fax: [address] [address] Referral ID Status Reason Start Date Expiration Date V isits Requested Visits Authorized [id number] Closed Auto-Generate d Referral 07/10/2024 07/10/2025 1 1 [facility] for visit Narrative* Diagnostic Procedure Only (Routine) - Closed Specialty Diagnoses / Procedures Referred By Contac t Referred To Contact XR IMAGING Diagnoses Chronic idiopathic constipation Procedures XR ABDOMEN 2V ROUTINE SUPINE W UPRIGHT/DECUB/CTL RADIOLOGIC EXAM ABDOMEN 2 VIEWS Iliana Mercado PA-C [address] [place] [address] Phone: tel: fax: [place] [address] Referral ID Status Reason Start Date Expiration Date V isits Requested Visits Authorized [id number] Closed Auto-Generate d Referral 07/09/2024 08/07/2025 1 1 [facility] for visit Narrative* Diagnostic Procedure Only (Routine) - Authorized Specialty Diagnoses / Procedures Referred By Contac t Referred To Contact XR IMAGING Diagnoses Pelvic floor dysfunction Chronic constipation Procedures XR ABDOMEN 1V SUPINE RADIOLOGIC EXAM ABDOMEN 1 VIEW Mario Harper, WEIGHER BULKER.HIGHW[address] WORKER [address] [place] [address] Phone: tel: fax: [place] [address] Referral ID Status Reason Start Date Expiration Date Visits Requested Visits Authorized [id number] Authorized Auto-Generat ed Referral 10/09/2024 11/08/2025 3 3 [facility] Summary Purpose Family History No Family [...] cervical spine wo contrast Giovani Hagen MD [address] [place] [address] Referral ID Status Reason Start Date Expiration Date V isits Requested Visits Authorized [id number] Pending Review 01/09/2024 07/07/2024 1 1 Specialty Diagnoses / Procedures Referred By Contac t Referred To Contact Diagnoses Attention deficit hyperactivity disorder (ADHD), predominantly inattentive type (CMS/HCC) Giovani Hagen MD [address] [place] [address] Referral ID Status Reason Start Date Expiration Date Visits Re quested Visits Authorized [id number] Closed 1 1 Specialty Diagnoses / Procedures Referred By Contac t Referred To Contact Diagnoses Attention deficit hyperactivity disorder (ADHD), predominantly inattentive type (CMS/HCC) Giovani Hagen MD [address] [place] [address] Referral ID Status Reason Start Date Expiration Date V isits Requested Visits Authorized [id number] Pending Review 01/08/2024 07/06/2024 1 1 Specialty Diagnoses / Procedures Referred By Contac t Ref[facility] To [facility] Diagnoses Syncope, unspecified syncope type Procedures CARDIOVASCULAR MEDICINE OP FOLLOW UP APPT ORDER Solo Mora MD [address] [place] [address] [address] Referral ID Status Reason Start Date Expiration Date Visits Requested Visits Authorized [id number] Ref Not Required PCP Requested Referral 12/28/2023 12/27/2024 1 1 Specialty Diagnoses / Procedures Referred By Contac t Referred To Contact [facility] Diagnoses Syncope, unspecified syncope type Procedures STRESS ECHO TREADMILL ECHO TTHRC R-T 2D W/WO M-MODE COMPLETE REST&ST Solo Mora MD [address] [place] [address] [address] Referral ID Status Reason Start Date Expiration Date Visits Requested Visits Authorized [id number] Authorized Auto-Generat ed Referral 12/19/2023 12/18/2024 1 1 Specialty Diagnoses / Procedures Referred By Contac t Referred To Contact CT IMAGING Diagnoses Bilious vomiting with nausea Right sided abdominal pain Nausea Procedures CT ABD/PEL WO IVCON CT ABD & PEL[place] [address] [place] [address] Ct Imaging [facility] Referral ID Status Reason Start Date Expiration Date V isits Requested Visits Authorized [id number] Closed Auto-Generate d Referral 05/27/2022 06/26/2023 1 1 Additional Source Comments INFORMATION SOURCE (unrecogn ized section and content) DATE CREATED AUTHOR 11/09/2018 [facility] DATE CREATED AUTHOR AUTHOR'S ORGANIZ ATION 08/23/2021 [facility] dical Specialist DATE CREATED AUTHOR AUTHOR'S ORGANIZ ATION 07/17/[address] [facility] pital DATE CREATED AUTHOR AUTHOR'S ORGANIZ ATION 03/22/2023 [facility] DATE CREATED AUTHOR AUTHOR'S ORGANIZ ATION 03/28/2023 [facility] DATE CREATED AUTHOR AUTHOR'S ORGANIZ ATION 04/07/2024 [facility] DATE CREATED AUTHOR AUTHOR'S ORGANIZ ATION 04/12/2024 [facility] DATE CREATED AUTHOR AUTHOR'S ORGANIZ ATION 09/26/2024 [facility] DATE CREATED AUTHOR AUTHOR'S ORGANIZ ATION 10/31/2024 [facility] DATE CREATED AUTHOR AUTHOR'S ORGANIZ ATION 01/03/[address] [facility] DATE CREATED AUTHOR AUTHOR'S ORGANIZ ATION 01/16/2025 [facility] DATE CREATED AUTHOR AUTHOR'S ORGANIZ ATION 01/16/2025 [facility] DATE CREATED AUTHOR AUTHOR'S ORGANIZ ATION 01/25/2025 [facility] dictx Specialists [facility] Care Teams (unrecognized sec tion and content) Team Status: Active Member Role Status Dates Giovani Hagen MD Primary Care Provider Active Team Status: Inactive Member Role Status Dates Erwin Hylton MD Attending Provider Active Giovani Hagen MD Primary Care Provider Active Program Evaluation Consultant Relationship Specialty Start Date End Date Giovani Hageny [address] [facility] [address] [place] [address] PCP - General Family Medicine 03/27/19 Program Evaluation Consultant Relationship Specialty Start Date End Date Giovani Hageny [address] [facility] [address] [place] [address] PCP - General Family Medicine 03/27/19 Program Evaluation Consultant Relationship Specialty Start Date End Date Giovani Hageny [address] [facility] [address] [place] [address] PCP - General Family Medicine 03/27/19 Program Evaluation Consultant Relationship Specialty Start Date End Date Giovani Hagenalay [address] [facility] [address] [place] [address] PCP - General Family Medicine 03/27/19 Program Evaluation Consultant Relationship Specialty Start Date End Date Giovani Hagenalay [address] [facility] [address] [place] [address] PCP - General Family Medicine 03/27/19 Program Evaluation Consultant Relationship Specialty Start Date End Date Giovani Hageny [address] [place] [address] [place] [address] PCP - General Family Medicine 03/27/19 Program Evaluation Consultant Relationship Specialty Start Date End Date Giovani Hageny [address] [place] [address] [place] [address] PCP - General Family Medicine 03/27/19 Program Evaluation Consultant Relationship Specialty Start Date End Date Giovani Hageny [address] [place] [address] [place] [address] PCP - General Family Medicine 03/27/19 Program Evaluation Consultant Relationship Specialty Start Date End Date Giovani Hageny [address] [place] [address] [place] [address] PCP - General Family Medicine 03/27/19 Program Evaluation Consultant Relationship Specialty Start Date End Date Giovani Hageny [address] [place] [address] [place] [address] PCP - General Family Medicine 03/27/19 Program Evaluation Consultant Relationship Specialty Start Date End Date Giovani Hageny [address] [place] [address] [place] [address] PCP - General Family Medicine 03/27/19 Program Evaluation Consultant Relationship Specialty Start Date End Date Giovani Hagen [address] [place] [address] [place] [address] PCP - General Family Medicine 03/27/19 Program Evaluation Consultant Relationship Specialty Start Date End Date Giovani Hagen [address] [place] [address] [place] [address] PCP - General Family Medicine 03/27/19 Program Evaluation Consultant Relationship Specialty Start Date End Date Giovani Hageny [address] [place] [address] [place] [address] PCP - General Family Medicine 03/27/19 Program Evaluation Consultant Relationship Specialty Start Date End Date Giovani Hagen MD [address] [place] [address] [place] [address] PCP - General Family Medicine 03/27/19 Program Evaluation Consultant Relationship Specialty Start Date End Date Giovani Hagen MD [address] [place] [address] [place] [address] PCP - General Family Medicine 03/27/19 Program Evaluation Consultant Relationship Specialty Start Date End Date Giovani Hagen MD [address] [place] [address] [place] [address] PCP - General Family Medicine 03/27/19 Program Evaluation Consultant Relationship Specialty Start Date End Date Giovani Hagen MD [address] [place] [address] [place] [address] PCP - General Family Medicine 03/27/19 Program Evaluation Consultant Relationship Specialty Start Date End Date Giovani Hagen MD [address] [place] [address] [place] [address] PCP - General Family Medicine 03/27/19 Program Evaluation Consultant Relationship Specialty Start Date End Date Giovani Hagen MD [address] [place] [address] [place] [address] PCP - General Family Medicine 03/27/19 Program Evaluation Consultant Relationship Specialty Start Date End Date Giovani Hagen MD [address] [place] [address] [place] [address] PCP - General Family Medicine 03/27/19 Program Evaluation Consultant Relationship Specialty Start Date End Date Giovani Hagen MD [address] [place] [address] [place] [address] PCP - General Family Medicine 03/27/19 Program Evaluation Consultant Relationship Specialty Start Date End Date Giovani Hagen MD [address] [place] [address] [place] [address] PCP - General Family Medicine 03/27/19 Program Evaluation Consultant Relationship Specialty Start Date End Date Giovani Hagen MD [address] [place] [address] [place] [address] PCP - General Family Medicine 03/27/19 Program Evaluation Consultant Relationship Specialty Start Date End Date Giovani Hagen MD [address] [place] [address] [place] [address] PCP - General Family Medicine 03/27/19 Program Evaluation Consultant Relationship Specialty Start Date End Date Giovani Hagen MD [address] [place] [address] [place] [address] PCP - General Family Medicine 03/27/19 Program Evaluation Consultant Relationship Specialty Start Date End Date Giovani Hagen MD [address] [place] [address] [place] [address] PCP - General Family Medicine 03/27/19 Program Evaluation Consultant Relationship Specialty Start Date End Date Giovani Hagen MD [address] [place] [address] [place] [address] PCP - [facility] [employer] 10/22/18 04/23/99 Giovani Hagen MD [address] [place] [address] [place] [address] PCP - General Family Medicine 08/30/22 Program Evaluation Consultant Relationship Specialty Start Date End Date Giovani Hagen MD [address] [place] [address] [place] [address] PCP - [facility] [employer] 10/22/18 04/23/99 Giovani Hagen MD [address] [place] [address] [place] [address] PCP - General Family Medicine 08/30/22 Program Evaluation Consultant Relationship Specialty Start Date End Date Giovani Hagen MD [address] [place] [address] [place] [address] PCP - [facility] [employer] 10/22/18 04/23/99 Giovani Hagen MD [address] [place] [address] [place] [address] PCP - General Family Medicine 08/30/22 Program Evaluation Consultant Relationship Specialty Start Date End Date Giovani Hagen MD [address] [place] [address] [place] [address] PCP - [facility] [employer] 10/22/18 04/23/99 Giovani Hagen MD [address] [place] [address] [place] [address] PCP - General Family Medicine 08/30/22 Program Evaluation Consultant Relationship Specialty Start Date End Date Giovani Hagen MD [address] [place] [address] [place] [address] PCP - [facility] [employer] 10/22/18 04/23/99 Giovani Hagen MD [address] [place] [address] [place] [address] PCP - General Family Medicine 08/30/22 Program Evaluation Consultant Relationship Specialty Start Date End Date Giovani Hagen MD [address] [place] [address] [place] [address] PCP - [facility] [employer] 10/22/18 04/23/99 Giovani Hagen MD [address] [place] [address] [place] [address] PCP - General Family Medicine 08/30/22 Program Evaluation Consultant Relationship Specialty Start Date End Date Giovani Hagen MD [address] [place] [address] [place] [address] PCP - [facility] [employer] 10/22/18 04/23/99 Giovani Hagen MD [address] [place] [address] [place] [address] PCP - General Family Medicine 08/30/22 Program Evaluation Consultant Relationship Specialty Start Date End Date Giovani Hagen MD [address] [place] [address] [place] [address] PCP - [facility] [employer] 10/22/18 04/23/99 Giovani Hagen MD [address] [place] [address] [place] [address] PCP - General Family Medicine 08/30/22 Program Evaluation Consultant Relationship Specialty Start Date End Date Giovani Hagen MD [address] [place] [address] [place] [address] PCP - [facility] [employer] 10/22/18 04/23/99 Giovani Hagen MD [address] [place] [address] [place] [address] PCP - General Family Medicine 08/30/22 Program Evaluation Consultant Relationship Specialty Start Date End Date Giovani Hagen MD [address] [place] [address] [place] [address] PCP - [facility] [employer] 10/22/18 04/23/99 Giovani Hagen MD [address] [place] [address] [place] [address] PCP - General Family Medicine 08/30/22 Program Evaluation Consultant Relationship Specialty Start Date End Date Giovani Hagen MD [address] [place] [address] [place] [address] PCP - [facility] [employer] 10/22/18 04/23/99 Giovani Hagen MD [address] [place] [address] [place] [address] PCP - General Family Medicine 08/30/22 Program Evaluation Consultant Relationship Specialty Start Date End Date Giovani Hagen MD [address] [place] [address] [place] [address] PCP - [facility] [employer] 10/22/18 04/23/99 Giovani Hagen MD [address] [place] [address] [place] [address] PCP - General Family Medicine 08/30/22 Program Evaluation Consultant Relationship Specialty Start Date End Date Giovani Hagen MD [address] [place] [address] [place] [address] PCP - [facility] [employer] 10/22/18 04/23/99 Giovani Hagen MD [address] [place] [address] [place] [address] PCP - General Family Medicine 08/30/22 Program Evaluation Consultant Relationship Specialty Start Date End Date Giovani Hagen MD [address] [place] [address] [place] [address] PCP - [facility] [employer] 10/22/18 04/23/99 Giovani Hgaen MD [address] [place] [address] [place] [address] PCP - General Family Medicine 08/30/22 Program Evaluation Consultant Relationship Specialty Start Date End Date Giovani Hagen MD [address] [place] [address] [place] [address] PCP - [facility] [employer] 10/22/18 04/23/99 Giovani Hagen MD [address] [place] [address] [place] [address] PCP - General Family Medicine 08/30/22 Program Evaluation Consultant Relationship Specialty Start Date End Date Giovani Hagen MD [address] [place] [address] [place] [address] PCP - [facility] [employer] 10/22/18 04/23/99 Giovani Hagen MD [address] [place] [address] [place] [address] PCP - General Family Medicine 08/30/22 Program Evaluation Consultant Relationship Specialty Start Date End Date Giovani Hagen MD [address] [place] [address] [place] [address] PCP - [facility] [employer] 10/22/18 04/23/99 Giovani Hagen MD [address] [place] [address] [place] [address] PCP - General Family Medicine 08/30/22 Program Evaluation Consultant Relationship Specialty Start Date End Date Giovani Hagen MD [address] [place] [address] [place] [address] PCP - [facility] [employer] 10/22/18 04/23/99 Giovani Hagen MD [address] [place] [address] [place] [address] PCP - General Family Medicine 08/30/22 Program Evaluation Consultant Relationship Specialty Start Date End Date Giovani Hagen MD [address] [place] [address] [place] [address] PCP - [facility] [employer] 10/22/18 04/23/99 Giovani Hagen MD [address] [place] [address] [place] [address] PCP - General Family Medicine 08/30/22 Program Evaluation Consultant Relationship Specialty Start Date End Date Giovani Hagen MD [address] [place] [address] [place] [address] PCP - [facility] [employer] 10/22/18 04/23/99 Giovani Hagen MD [address] [place] [address] [place] [address] PCP - General Family Medicine 08/30/22 Program Evaluation Consultant Relationship Specialty Start Date End Date Giovani Hagen MD [address] [place] [address] [place] [address] PCP - [facility] [employer] 10/22/18 04/23/99 Giovani Hagen MD [address] [place] [address] [place] [address] PCP - General Family Medicine 08/30/22 Program Evaluation Consultant Relationship Specialty Start Date End Date Giovani Hagen MD [address] [place] [address] [place] [address] PCP - [facility] [employer] 10/22/18 04/23/99 Giovani Hagen MD [address] [place] [address] [place] [address] PCP - General Family Medicine 08/30/22 Program Evaluation Consultant Relationship Specialty Start Date End Date Giovani Hagen MD [address] [place] [address] [place] [address] PCP - [facility] [employer] 10/22/18 04/23/99 Giovani Hagen MD [address] [place] [address] [place] [address] PCP - General Family Medicine 08/30/22 Program Evaluation Consultant Relationship Specialty Start Date End Date Giovani Hagen MD [address] [place] [address] [place] [address] PCP - [facility] [employer] 10/22/18 04/23/99 Giovani Hagen MD [address] [place] [address] [place] [address] PCP - General Family Medicine 08/30/22 Program Evaluation Consultant Relationship Specialty Start Date End Date Giovani Hagen MD [address] [place] [address] [place] [address] PCP - General Family Medicine 03/27/19 Program Evaluation Consultant Relationship Specialty Start Date End Date Giovani Hagen MD [address] [place] [address] [place] [address] PCP - [facility] [employer] 10/22/18 04/23/99 Giovani Hagen MD [address] [place] [address] [place] [address] PCP - General Family Medicine 08/30/22 Program Evaluation Consultant Relationship Specialty Start Date End Date Giovani Hagen MD [address] [place] [address] [place] [address] PCP - General Family Medicine 03/27/19 Deena Lyn, ISABEL [address] [place] [address] [place] [address] Referring Family Medicine 04/03/24 Program Evaluation Consultant Relationship Specialty Start Date End Date Giovani Hagen MD [address] [place] [address] [place] [address] PCP - General Family Medicine 03/27/19 Deena Lyn, HIGHWAY WORKER [address] [place] [address] [place] [address] Referring Family Medicine 04/03/24 Program Evaluation Consultant Relationship Specialty Start Date End Date Giovani Hagen MD [address] [place] [address] [place] [address] PCP - [facility] [employer] 10/22/18 04/23/99 Giovani Hagen MD [address] [place] [address] [place] [address] PCP - General Family Medicine 08/30/22 Program Evaluation Consultant Relationship Specialty Start Date End Date Giovani Hagen MD [address] [place] [address] [place] [address] PCP - [facility] [employer] 10/22/18 04/23/99 Giovani Hagen MD [address] [place] [address] [place] [address] PCP - General Family Medicine 08/30/22 Program Evaluation Consultant Relationship Specialty Start Date End Date Giovani Hagen MD [address] [place] [address] [place] [address] PCP - [facility] [employer] 10/22/18 04/23/99 Giovani Hagen MD [address] [place] [address] [place] [address] PCP - General Family Medicine 08/30/22 Program Evaluation Consultant Relationship Specialty Start Date End Date Giovani Hagen MD [address] [place] [address] [place] [address] PCP - [facility] [employer] 10/22/18 04/23/99 Giovani Hagen MD [address] [place] [address] [place] [address] PCP - General Family Medicine 08/30/22 Program Evaluation Consultant Relationship Specialty Start Date End Date Gioavni Hagen MD [address] [place] [address] [place] [address] PCP - [facility] [employer] 10/22/18 04/23/99 Giovani Hagen MD [address] [place] [address] [place] [address] PCP - General Family Medicine 08/30/22 Program Evaluation Consultant Relationship Specialty Start Date End Date Giovani Hagen MD [address] [place] [address] [place] [address] PCP - [facility] [employer] 10/22/18 04/23/99 Giovani Hagen MD [address] [place] [address] [place] [address] PCP - General Family Medicine 08/30/22 Program Evaluation Consultant Relationship Specialty Start Date End Date Giovani Hagen MD [address] [place] [address] [place] [address] PCP - [facility] [employer] 10/22/18 04/23/99 Giovani Hagen MD [address] [place] [address] [place] [address] PCP - General Family Medicine 08/30/22 Program Evaluation Consultant Relationship Specialty Start Date End Date Giovani Hagen MD [address] [place] [address] [place] [address] PCP - General Family Medicine 03/27/19 Deena Lyn CNP [address] [place] [address] [place] [address] Referring Family Medicine 04/03/24 Program Evaluation Consultant Relationship Specialty Start Date End Date Giovani Hagen MD [address] [place] [address] [place] [address] PCP - [facility] [employer] 10/22/18 04/23/99 Giovani Hagen MD [address] [place] [address] [place] [address] PCP - General Family Medicine 08/30/22 Program Evaluation Consultant Relationship Specialty Start Date End Date Giovani Hagen MD [address] [place] [address] [place] [address] PCP - [facility] [employer] 10/22/18 04/23/99 Giovani Hagen MD [address] [place] [address] [place] [address] PCP - General Family Medicine 08/30/22 Program Evaluation Consultant Relationship Specialty Start Date End Date Giovani Hagen MD [address] [place] [address] [place] [address] PCP - [facility] [employer] 10/22/18 04/23/99 Giovani Hagen MD [address] [place] [address] [place] [address] PCP - General Family Medicine 08/30/22 Program Evaluation Consultant Relationship Specialty Start Date End Date Giovani Hagen MD [address] [place] [address] [place] [address] PCP - General Family Medicine 03/27/19 Deena Lyn CNP [address] [place] [address] [place] [address] Referring Family Medicine 04/03/24 Program Evaluation Consultant Relationship Specialty Start Date End Date Giovani Hagen MD [address] [place] [address] [place] [address] PCP - General Family Medicine 03/27/19 Deena Lyn CNP [address] [place] [address] [place] [address] Referring Family Medicine 04/03/24 Program Evaluation Consultant Relationship Specialty Start Date End Date Giovani Hagen MD [address] [place] [address] [place] [address] PCP - General Family Medicine 03/27/19 Deena Lyn CNP [address] [place] [address] [place] [address] Referring Family Medicine 04/03/24 Program Evaluation Consultant Relationship Specialty Start Date End Date Giovani Hagen MD [address] [place] [address] [place] [address] PCP - [facility] [employer] 10/22/18 04/23/99 Giovani Hagen MD [address] [place] [address] [place] [address] PCP - General Family Medicine 08/30/22 Program Evaluation Consultant Relationship Specialty Start Date End Date Giovani Hagen MD [address] [place] [address] [place] [address] PCP - [facility] 10/22/18 04/23/99 Giovani Hagen MD [address] [place] [address] [place] [address] PCP - General Family Medicine 08/30/22 Program Evaluation Consultant Relationship Specialty Start Date End Date Giovani Hagen MD [address] [place] [address] [place] [address] PCP - General Family Medicine 03/27/19 Deena Lyn CNP [address] [place] [address] [place] [address] Referring Family Medicine 04/03/24 Program Evaluation Consultant Relationship Specialty Start Date End Date Giovani Hagen MD [address] [place] [address] [place] [address] PCP - General Family Medicine 03/27/19 Deena Lyn CNP [address] [place] [address] [place] [address] Referring Family Medicine 04/03/24 Program Evaluation Consultant Relationship Specialty Start Date End Date Giovani Hagen MD [address] [place] [address] [place] [address] PCP - [facility] [employer] 10/22/18 04/23/99 Giovani Hagen MD [address] [place] [address] [place] [address] PCP - General Family Medicine 08/30/22 Program Evaluation Consultant Relationship Specialty Start Date End Date Giovani Hagen MD [address] [place] [address] [place] [address] PCP - [facility] [employer] 10/22/18 04/23/99 Giovani Hagen MD [address] [place] [address] [place] [address] PCP - General Family Medicine 08/30/22 Program Evaluation Consultant Relationship Specialty Start Date End Date Giovani Hagen MD [address] [place] [address] [place] [address] PCP - General Family Medicine 03/27/19 Deena Lyn CNP [address] [place] [address] [place] [address] Referring Family Medicine 04/03/24 Program Evaluation Consultant Relationship Specialty Start Date End Date Giovani Hagen MD [address] [place] [address] [place] [address] PCP - [facility] [employer] 10/22/18 04/23/99 Giovani Hagen MD [address] [place] [address] [place] [address] PCP - General Family Medicine 08/30/22 Program Evaluation Consultant Relationship Specialty Start Date End Date Giovani Hagen MD [address] [place] [address] [place] [address] PCP - [facility] [employer] 10/22/18 04/23/99 Giovani Hagen MD [address] [place] [address] [place] [address] PCP - General Family Medicine 08/30/22 Program Evaluation Consultant Relationship Specialty Start Date End Date Giovani Hagen MD [address] [place] [address] [place] [address] PCP - General Family Medicine 03/27/19 Deena Lyn, ISABEL [address] [place] [address] [place] [address] Referring Family Medicine 04/03/24 Program Evaluation Consultant Relationship Specialty Start Date End Date Giovani Hagen MD [address] [place] [address] [place] [address] PCP - General Family Medicine 03/27/19 Deena Lyn, ISABEL [address] [place] [address] [place] [address] Referring Family Medicine 04/03/24 Program Evaluation Consultant Relationship Specialty Start Date End Date Giovani Hagen MD [address] [place] [address] [place] [address] PCP - [facility] [employer] 10/22/18 04/23/99 Giovani Hagen MD [address] [place] [address] [place] [address] PCP - General Family Medicine 08/30/22 Program Evaluation Consultant Relationship Specialty Start Date End Date Giovani Hagen MD [address] [place] [address] [place] [address] PCP - [facility] [employer] 10/22/18 04/23/99 Giovani Hagen MD [address] [place] [address] [place] [address] PCP - General Family Medicine 08/30/22 Program Evaluation Consultant Relationship Specialty Start Date End Date Giovani Hagen MD [address] [place] [address] [place] [address] PCP - [facility] [employer] 10/22/18 04/23/99 Giovani Hagen MD [address] [place] [address] [place] [address] PCP - General Family Medicine 08/30/22 Program Evaluation Consultant Relationship Specialty Start Date End Date Giovani Hagen MD [address] [place] [address] [place] [address] PCP - [facility] [employer] 10/22/18 04/23/99 Giovani Hagen MD [address] [place] [address] [place] [address] PCP - General Family Medicine 08/30/22 Program Evaluation Consultant Relationship Specialty Start Date End Date Giovani Hagen MD [address] [place] [address] PCP - Medical [employer] 10/22/18 04/23/99 Giovani Hagen MD [address] [place] [address] PCP - General Family Medicine 08/30/22 Program Evaluation Consultant Relationship Specialty Start Date End Date Giovani Hagen MD [address] [place] [address] PCP - Medical [employer] 10/22/18 04/23/99 Giovani Hagen MD [address] [place] [address] PCP - General Family Medicine 08/30/22 Program Evaluation Consultant Relationship Specialty Start Date End Date Giovani Hagen MD [address] [place] [address] PCP - Medical [employer] 10/22/18 04/23/99 Giovani Hagen MD [address] [place] [address] PCP - General Family Medicine 08/30/22 Program Evaluation Consultant Relationship Specialty Start Date End Date Giovani Hagen MD [address] [place] [address] PCP - Medical [employer] 10/22/18 04/23/99 Giovani Hagen MD [address] [place] [address] PCP - General Family Medicine 08/30/22 Program Evaluation Consultant Relationship Specialty Start Date End Date Giovani Hagen MD [address] [place] [address] PCP - General Family Medicine 03/27/19 Deena Lyn CNP [address] [place] [address] Referring Family Medicine 04/03/24 Darwin Starr DO [address] [place], [place] [address]le[place] [address] Referring Hot Box Checker 07/02/24 Program Evaluation Consultant Relationship Specialty Start Date End Date Giovani Hagen MD [address] [place] [address] PCP - General Family Medicine 03/27/19 Deena Lyn, ISABEL [address] [place] [address] Referring Family Medicine 04/03/24 Darwin Starr DO [facility] [place] [address] Referring Hot Box Checker 07/02/24 Program Evaluation Consultant Relationship Specialty Start Date End Date Giovani Hagen MD [address] [place] [address] PCP - Medical [employer] 10/22/18 04/23/99 Giovani Hagen MD [address] [place] [address] PCP - General Family Medicine 08/30/22 Program Evaluation Consultant Relationship Specialty Start Date End Date Giovani Hagen MD [address] [place] [address] PCP - Medical [employer] 10/22/18 04/23/99 Giovani Hagen MD [address] [place] [address] PCP - General Family Medicine 08/30/22 Program Evaluation Consultant Relationship Specialty Start Date End Date Giovani Hagen MD [address] [facility] [address] [place] [address] PCP - Medical [employer] 10/22/18 04/23/99 Giovani Hagen MD [address] [facility] [address] [place] [address] PCP - General Family Medicine 08/30/22 Program Evaluation Consultant Relationship Specialty Start Date End Date Giovani Hagen MD [address] [facility] [address] [place] [address] PCP - Medical [employer] [facility] 10/22/18 04/23/99 Giovani Hagen MD [address] [facility] [address] [place] [address] PCP - General Family Medicine 08/30/22 Program Evaluation Consultant Relationship Specialty Start Date End Date Giovani Hagen MD [address] [facility] [address] [place] [address] PCP - Medical [employer] [facility] 10/22/18 04/23/99 Giovani Hagen MD [address] [facility] [address] [place] [address] PCP - General Family Medicine 08/30/22 Team [...] Other Provider Active Start: August 17, 2024 Program Evaluation Consultant Relationship Specialty Start Date End Date Giovani Hagen MD [address] [facility] [address] [place] [address] PCP - Medical [employer] 10/22/18 04/23/99 Giovani Hagen MD [address] [facility] [address] [place] [address] PCP - General Family Medicine 08/30/22 Program Evaluation Consultant Relationship Specialty Start Date End Date Giovani Hagen MD [address] [facility] [address] [place] [address] PCP - Medical [employer] 10/22/18 04/23/99 Giovani Hagen MD [address] [facility] [address] [place] [address] PCP - General Family Medicine 08/30/22 Program Evaluation Consultant Relationship Specialty Start Date End Date Giovani Hagen MD [address] [facility] [address] [place] [address] PCP - General Family Medicine 03/27/19 Deena Lyn CNP [address] [facility] [address] [place] [address] Referring Family Medicine 04/03/24 Darwin Starr DO [address] [place] [address] [place] [address] Referring Hot Box Checker 07/02/24 Program Evaluation Consultant Relationship Specialty Start Date End Date Giovani Hagen MD [address] [facility] [address] [place] [address] PCP - Medical Verified Identity Pass 10/22/18 04/23/99 Giovani Hagen MD [address] [place] [address] PCP - General Family Medicine 08/30/22 Program Evaluation Consultant Relationship Specialty Start Date End Date Giovani Hagen MD [address] [place] [address] PCP - Medical Verified Identity Pass 10/22/18 04/23/99 Giovani Hagen MD [address] [place] [address] PCP - General Family Medicine 08/30/22 Program Evaluation Consultant Relationship Specialty Start Date End Date Giovani Hagen MD [address] [facility] [address] [place] [address] PCP - Medical Verified Identity Pass 10/22/18 04/23/99 Giovani Hagen MD [address] [facility] [address] [place] [address] PCP - General Family Medicine 08/30/22 Program Evaluation Consultant Relationship Specialty Start Date End Date Giovani Hagen MD [address] [facility] [address] [place] [address] PCP - Medical Verified Identity Pass 10/22/18 04/23/99 Giovani Hagen MD [address] [facility] [address] [place] [address] PCP - General Family Medicine 08/30/22 Program Evaluation Consultant Relationship Specialty Start Date End Date Giovani Hagen MD [address] [facility] [address] [place] [address] PCP - General Family Medicine 03/27/19 Deena Lyn, ISABEL [address] [place] [address] Referring Family Medicine 04/03/24 Darwin Starr DO [address] [place] [address] [place] [address] Referring Hot Box Checker 07/02/24 Program Evaluation Consultant Relationship Specialty Start Date End Date Giovani Hagen MD [address] [place] [address] PCP - Medical [employer] 10/22/18 04/23/99 Giovani Hagen MD [address] [place] [address] PCP - General Family Medicine 08/30/22 Program Evaluation Consultant Relationship Specialty Start Date End Date Giovani Hagen MD [address] [place] [address] PCP - Medical [employer] 10/22/18 04/23/99 Giovani Hagen MD [address] [place] [address] PCP - General Family Medicine 08/30/22 Program Evaluation Consultant Relationship Specialty Start Date End Date Giovani Hagen MD [address] [address] [place] [address] PCP - General Family Medicine 03/27/19 Deena Lyn, ISABEL [address] [place] [address] Referring Family Medicine 04/03/24 Darwin Starr DO [address] [place] [address] [place] [address] Referring Hot Box Checker 07/02/24 Program Evaluation Consultant Relationship Specialty Start Date End Date Giovani Hagen MD [address] [place] [address] PCP - Medical [employer] 10/22/18 04/23/99 Giovani Hagen MD [address] [place] [address] PCP - General Family Medicine 08/30/22 Program Evaluation Consultant Relationship Specialty Start Date End Date Giovani Hagen MD [address] [place] [address] PCP - Medical [employer] [facility] 10/22/18 04/23/99 Giovani Hagen MD [address] [place] [address] PCP - General Family Medicine 08/30/22 Program Evaluation Consultant Relationship Specialty Start Date End Date Giovani Hagen MD [address] [place] [address] PCP - Medical [employer] 10/22/18 04/23/99 Giovani Hagen MD [address] [place] [address] PCP - General Family Medicine 08/30/22 Program Evaluation Consultant Relationship Specialty Start Date End Date Giovani Hagen MD [address] [address] [place] [address] PCP - General Family Medicine 03/27/19 Deena Lyn, ISABEL [address] [place] [address] Referring Family Medicine 04/03/24 Darwin Starr DO [address] [place] [address] Referring Hot Box Checker 07/02/24 Program Evaluation Consultant Relationship Specialty Start Date End Date Giovani Hagen MD [address] [place] [address] PCP - Medical [employer] 10/22/18 04/23/99 Giovani Hagen MD [address] [facility] [address] [place] [address] PCP - General Family Medicine 08/30/22 Program Evaluation Consultant Relationship Specialty Start Date End Date Giovani Hagen MD [address] [facility] [address] [place] [address] PCP - Medical [employer] 10/22/18 04/23/99 Giovani Hagen MD [address] [facility] [address] [place] [address] PCP - General Family Medicine 08/30/22 Program Evaluation Consultant Relationship Specialty Start Date End Date Giovani Hagen MD [address] [address] [place] [address] PCP - General Family Medicine 03/27/19 Deena Lyn, ISABEL [address] [place] [address] Referring Family Medicine 04/03/24 Darwin Starr DO [address] [place] [address] Referring Hot Box Checker 07/02/24 Program Evaluation Consultant Relationship Specialty Start Date End Date Giovani Hagen MD [address] [place] [address] PCP - General Family Medicine 03/27/19 Deena Lyn, HIGHWAY WORKER [address] [place] [address] Referring Family Medicine 04/03/24 Darwin Starr DO [address] [place] [address] Referring Hot Box Checker 07/02/24 Program Evaluation Consultant Relationship Specialty Start Date End Date Giovani Hagen MD [address] [place] [address] PCP - Medical [employer] 10/22/18 04/23/99 Giovani Hagen MD [address] [place] [address] PCP - General Family Medicine 08/30/22 Program Evaluation Consultant Relationship Specialty Start Date End Date Giovani Hagen MD [address] [address] [place] [address] PCP - General Family Medicine 03/27/19 Deena Lyn, HIGHWAY WORKER [address] [place] [address] Referring Family Medicine 04/03/24 Darwin Starr DO [address] [place] [address] Referring Hot Box Checker 07/02/24 Program Evaluation Consultant Relationship Specialty Start Date End Date Giovani Hagen MD [address] [facility] [address] [place] [address] PCP - General Family Medicine 03/27/19 Deena Lyn CNP [address] [place] [address] Referring Family Medicine 04/03/24 Darwin Starr DO [address] [place] [address] Dr [place]arlyle [place], [place] [address] Referring Hot Box Checker 07/02/24 Program Evaluation Consultant Relationship Specialty Start Date End Date Giovani Hagen MD [address] [facility] [address] [place] [address] PCP - Medical [employer] 10/22/18 04/23/99 Giovani Hagen MD [address] [facility] [address] [place] [address] PCP - General Family Medicine 08/30/22 Program Evaluation Consultant Relationship Specialty Start Date End Date Giovani Hagen MD [address] [facility] [address] [place] [address] PCP - Medical [employer] 10/22/18 04/23/99 Giovani Hagen MD [address] [facility] [address] [place] [address] PCP - General Family Medicine 08/30/22 Program Evaluation Consultant Relationship Specialty Start Date End Date Giovani Hagen MD [address] [facility] [address] [place] [address] PCP - Medical [employer] 10/22/18 04/23/99 Giovani Hagen MD [address] [place] [address] PCP - General Family Medicine 08/30/22 Program Evaluation Consultant Relationship Specialty Start Date End Date Giovani Hagen MD [address] [place] [address] PCP - Medical [employer] 10/22/18 04/23/99 Giovani Hagen MD [address] [place] [address] PCP - General Family Medicine 08/30/22 Program Evaluation Consultant Relationship Specialty Start Date End Date Giovani Hagen MD [address] [place] [address] PCP - Medical [employer] 10/22/18 04/23/99 Giovani Hagen MD [address] [place] [address] PCP - General [facility] Medicine 08/30/22 Program Evaluation Consultant Relationship Specialty Start Date End Date Giovani Hagen MD [address] [place] [address] PCP - Medical [employer] 10/22/18 04/23/99 Giovani Hagen MD [address] [place] [address] PCP - General Family Medicine 08/30/22 Program Evaluation Consultant Relationship Specialty Start Date End Date Giovani Hagen MD [address] [place] [address] PCP - Medical Verified Identity Pass 10/22/18 04/23/99 Giovani Hagen MD [address] [place] [address] PCP - General Family Medicine 08/30/22 Program Evaluation Consultant Relationship Specialty Start Date End Date Giovani Hagen MD [address] [place] [address] PCP - Medical [employer] 10/22/18 04/23/99 Giovani Hagen MD [address] [place] [address] PCP - General Family Medicine 08/30/22 Program Evaluation Consultant Relationship Specialty Start Date End Date Giovani Hagen MD [address] [place] [address] PCP - Medical [employer] 10/22/18 04/23/99 Giovani Hagen MD [address] [place] [address] PCP - General Family Medicine 08/30/22 Program Evaluation Consultant Relationship Specialty Start Date End Date Giovani Hagen MD [address] [place] [address] PCP - Medical [employer] 10/22/18 04/23/99 Giovani Hagen MD [address] [place] [address] PCP - General Family Medicine 08/30/22 Program Evaluation Consultant Relationship Specialty Start Date End Date Giovani Hagen MD [address] [address] [place] [address] PCP - General Family Medicine 03/27/19 Deena Lyn, WEIGHER BULKER [address] [place] [address] Referring Family Medicine 04/03/24 Darwin Starr DO [address] [place], [place] [address] [address] Referring Hot Box Checker 07/02/24 Program Evaluation Consultant Relationship Specialty Start Date End Date Giovani Hagen MD [address] [place] [address] PCP - Medical [employer] 10/22/18 04/23/99 Giovani Hagen MD [address] [place] [address] PCP - General Family Medicine 08/30/22 Program Evaluation Consultant Relationship Specialty Start Date End Date Giovani Hagen MD [address] [address] [place] [address] PCP - General Family Medicine 03/27/19 Deena Lyn, WEIGHER BULKER [address] [place] [address] Referring Family Medicine 04/03/24 Darwin Starr DO [facility] [place] [address] Referring Hot Box Checker 07/02/24 Program Evaluation Consultant Relationship Specialty Start Date End Date Giovani Hagen MD [address] [place] [address] PCP - Medical [employer] 10/22/18 04/23/99 Giovani Hagen MD [address] [place] [address] PCP - General Family Medicine 08/30/22 Program Evaluation Consultant Relationship Specialty Start Date End Date Giovani Hagen MD [address] [place] [address] PCP - Medical [employer] 10/22/18 04/23/99 Giovani Hagen MD [address] [place] [address] PCP - General Family Medicine 08/30/22 Program Evaluation Consultant Relationship Specialty Start Date End Date Giovani Hagen MD [address] [place] [address] PCP - Medical [employer] 10/22/18 04/23/99 Giovani Hagen MD [address] [place] [address] PCP - General Family Medicine 08/30/22 Program Evaluation Consultant Relationship Specialty Start Date End Date Giovani Hagen MD [address] [place] [address] PCP - Medical [employer] 10/22/18 04/23/99 Giovani Hagen MD [address] [place] [address] PCP - General Family Medicine 08/30/22 Source Comments (unrecognize d section and content) In the event this informatio n is protected by the Federal Confidentiality of Alcohol and Drug Abuse Patient Records regulations: The Federal rules restrict any use of the information to criminally investigate or prosecute any alcohol or drug abuse patient.[facility] HospitalIn the event this information is protected by the Federal Confidentiality of Alcohol and Drug Abuse Patient Records regulations: The Federal rules restrict any use of the information to criminally investigate or prosecute any alcohol or drug abuse patient.[facility] HospitalIn the event this information is protected by the Federal Confidentiality of Alcohol and Drug Abuse Patient Records regulations: The Federal rules restrict any use of the information to criminally investigate or prosecute any alcohol or drug abuse patient.[facility] HospitalIn the event this information is protected by the Federal Confidentiality of Alcohol and Drug Abuse Patient Records regulations: The Federal rules restrict any use of the information to criminally investigate or prosecute any alcohol or drug abuse patient.[facility] HospitalIn the event this information is protected by the Federal Confidentiality of Alcohol and Drug Abuse Patient Records regulations: The Federal rules restrict any use of the information to criminally investigate or prosecute any alcohol or drug abuse patient.[facility] HospitalIn the event this information is protected by the Federal Confidentiality of Alcohol and Drug Abuse Patient Records regulations: The Federal rules restrict any use of the information to criminally investigate or prosecute any alcohol or drug abuse patient.[facility] HospitalIn the event this information is protected by the Federal Confidentiality of Alcohol and Drug Abuse Patient Records regulations: The Federal rules restrict any use of the information to criminally investigate or prosecute any alcohol or drug abuse patient.[facility] HospitalIn the event this information is protected by the Federal Confidentiality of Alcohol and Drug Abuse Patient Records regulations: The Federal rules restrict any use of the information to criminally investigate or prosecute any alcohol or drug abuse patient.[facility] HospitalIn the event this information is protected by the Federal Confidentiality of Alcohol and Drug Abuse Patient Records regulations: The Federal rules restrict any use of the information to criminally investigate or prosecute any alcohol or drug abuse patient.[facility] HospitalIn the event this information is protected by the Federal Confidentiality of Alcohol and Drug Abuse Patient Records regulations: The Federal rules restrict any use of the information to criminally investigate or prosecute any alcohol or drug abuse patient.[facility] HospitalIn the event this information is protected by the Federal Confidentiality of Alcohol and Drug Abuse Patient Records regulations: The Federal rules restrict any use of the information to criminally investigate or prosecute any alcohol or drug abuse patient.[facility] HospitalIn the event this information is protected by the Federal Confidentiality of Alcohol and Drug Abuse Patient Records regulations: The Federal rules restrict any use of the information to criminally investigate or prosecute any alcohol or drug abuse patient.[facility] HospitalIn the event this information is protected by the Federal Confidentiality of Alcohol and Drug Abuse Patient Records regulations: The Federal rules restrict any use of the information to criminally investigate or prosecute any alcohol or drug abuse patient.[facility] HospitalIn the event this information is protected by the Federal Confidentiality of Alcohol and Drug Abuse Patient Records regulations: The Federal rules restrict any use of the information to criminally investigate or prosecute any alcohol or drug abuse patient.[facility] HospitalIn the event this information is protected by the Federal Confidentiality of Alcohol and Drug Abuse Patient Records regulations: The Federal rules restrict any use of the information to criminally investigate or prosecute any alcohol or drug abuse patient.[facility] HospitalIn the event this information is protected by the Federal Confidentiality of Alcohol and Drug Abuse Patient Records regulations: The Federal rules restrict any use of the information to criminally investigate or prosecute any alcohol or drug abuse patient.[facility] HospitalIn the event this information is protected by the Federal Confidentiality of Alcohol and Drug Abuse Patient Records regulations: The Federal rules restrict any use of the information to criminally investigate or prosecute any alcohol or drug abuse patient.[facility] HospitalIn the event this information is protected by the Federal Confidentiality of Alcohol and Drug Abuse Patient Records regulations: The Federal rules restrict any use of the information to criminally investigate or prosecute any alcohol or drug abuse patient.[facility] HospitalIn the event this information is protected by the Federal Confidentiality of Alcohol and Drug Abuse Patient Records regulations: The Federal rules restrict any use of the information to criminally investigate or prosecute any alcohol or drug abuse patient.[facility] HospitalIn the event this information is protected by the Federal Confidentiality of Alcohol and Drug Abuse Patient Records regulations: The Federal rules restrict any use of the information to criminally investigate or prosecute any alcohol or drug abuse patient.[facility] HospitalIn the event this information is protected by the Federal Confidentiality of Alcohol and Drug Abuse Patient Records regulations: The Federal rules restrict any use of the information to criminally investigate or prosecute any alcohol or drug abuse patient.[facility] HospitalIn the event this information is protected by the Federal Confidentiality of Alcohol and Drug Abuse Patient Records regulations: The Federal rules restrict any use of the information to criminally investigate or prosecute any alcohol or drug abuse patient.[facility] HospitalIn the event this information is protected by the Federal Confidentiality of Alcohol and Drug Abuse Patient Records regulations: The Federal rules restrict any use of the information to criminally investigate or prosecute any alcohol or drug abuse patient.[facility] HospitalIn the event this information is protected by the Federal Confidentiality of Alcohol and Drug Abuse Patient Records regulations: The Federal rules restrict any use of the information to criminally investigate or prosecute any alcohol or drug abuse patient.[facility] HospitalIn the event this information is protected by the Federal Confidentiality of Alcohol and Drug Abuse Patient Records regulations: The Federal rules restrict any use of the information to criminally investigate or prosecute any alcohol or drug abuse patient.[facility] HospitalIn the event this information is protected by the Federal Confidentiality of Alcohol and Drug Abuse Patient Records regulations: The Federal rules restrict any use of the information to criminally investigate or prosecute any alcohol or drug abuse patient.[facility] HospitalIn the event this information is protected by the Federal Confidentiality of Alcohol and Drug Abuse Patient Records regulations: The Federal rules restrict any use of the information to criminally investigate or prosecute any alcohol or drug abuse patient.[facility] HospitalIn the event this information is protected by the Federal Confidentiality of Alcohol and Drug Abuse Patient Records regulations: The Federal rules restrict any use of the information to criminally investigate or prosecute any alcohol or drug abuse patient.[facility] HospitalIn the event this information is protected by the Federal Confidentiality of Alcohol and Drug Abuse Patient Records regulations: The Federal rules restrict any use of the information to criminally investigate or prosecute any alcohol or drug abuse patient.[facility] HospitalIn the event this information is protected by the Federal Confidentiality of Alcohol and Drug Abuse Patient Records regulations: The Federal rules restrict any use of the information to criminally investigate or prosecute any alcohol or drug abuse patient.[facility] HospitalIn the event this information is protected by the Federal Confidentiality of Alcohol and Drug Abuse Patient Records regulations: The Federal rules restrict any use of the information to criminally investigate or prosecute any alcohol or drug abuse patient.[facility] HospitalIn the event this information is protected by the Federal Confidentiality of Alcohol and Drug Abuse Patient Records regulations: The Federal rules restrict any use of the information to criminally investigate or prosecute any alcohol or drug abuse patient.[facility] HospitalIn the event this information is protected by the Federal Confidentiality of Alcohol and Drug Abuse Patient Records regulations: The Federal rules restrict any use of the information to criminally investigate or prosecute any alcohol or drug abuse patient.[facility] HospitalIn the event this information is protected by the Federal Confidentiality of Alcohol and Drug Abuse Patient Records regulations: The Federal rules restrict any use of the information to criminally investigate or prosecute any alcohol or drug abuse patient.[facility] HospitalIn the event this information is protected by the Federal Confidentiality of Alcohol and Drug Abuse Patient Records regulations: The Federal rules restrict any use of the information to criminally investigate or prosecute any alcohol or drug abuse patient.[facility] HospitalIn the event this information is protected by the Federal Confidentiality of Alcohol and Drug Abuse Patient Records regulations: The Federal rules restrict any use of the information to criminally investigate or prosecute any alcohol or drug abuse patient.[facility] HospitalIn the event this information is protected by the Federal Confidentiality of Alcohol and Drug Abuse Patient Records regulations: The Federal rules restrict any use of the information to criminally investigate or prosecute any alcohol or drug abuse patient.[facility] HospitalIn the event this information is protected by the Federal Confidentiality of Alcohol and Drug Abuse Patient Records regulations: The Federal rules restrict any use of the information to criminally investigate or prosecute any alcohol or drug abuse patient.[facility] HospitalIn the event this information is protected by the Federal Confidentiality of Alcohol and Drug Abuse Patient Records regulations: The Federal rules restrict any use of the information to criminally investigate or prosecute any alcohol or drug abuse patient.[facility]In the event this information is protected by the Federal Confidentiality of Alcohol and Drug Abuse Patient Records regulations: The Federal rules restrict any use of the information to criminally investigate or prosecute any alcohol or drug abuse patient.[facility] HospitalIn the event this information is protected by the Federal Confidentiality of Alcohol and Drug Abuse Patient Records regulations: The Federal rules restrict any use of the information to criminally investigate or prosecute any alcohol or drug abuse patient.[facility] HospitalIn the event this information is protected by the Federal Confidentiality of Alcohol and Drug Abuse Patient Records regulations: The Federal rules restrict any use of the information to criminally investigate or prosecute any alcohol or drug abuse patient.[facility] HospitalIn the event this information is protected by the Federal Confidentiality of Alcohol and Drug Abuse Patient Records regulations: The Federal rules restrict any use of the information to criminally investigate or prosecute any alcohol or drug abuse patient.[facility] HospitalIn the event this information is protected by the Federal Confidentiality of Alcohol and Drug Abuse Patient Records regulations: The Federal rules restrict any use of the information to criminally investigate or prosecute any alcohol or drug abuse patient.[facility] HospitalIn the event this information is protected by the Federal Confidentiality of Alcohol and Drug Abuse Patient Records regulations: The Federal rules restrict any use of the information to criminally investigate or prosecute any alcohol or drug abuse patient.[facility] HospitalIn the event this information is protected by the Federal Confidentiality of Alcohol and Drug Abuse Patient Records regulations: The Federal rules restrict any use of the information to criminally investigate or prosecute any alcohol or drug abuse patient.[facility] HospitalIn the event this information is protected by the Federal Confidentiality of Alcohol and Drug Abuse Patient Records regulations: The Federal rules restrict any use of the information to criminally investigate or prosecute any alcohol or drug abuse patient.[facility] HospitalIn the event this information is protected by the Federal Confidentiality of Alcohol and Drug Abuse Patient Records regulations: The Federal rules restrict any use of the information to criminally investigate or prosecute any alcohol or drug abuse patient.[facility] HospitalIn the event this information is protected by the Federal Confidentiality of Alcohol and Drug Abuse Patient Records regulations: The Federal rules restrict any use of the information to criminally investigate or prosecute any alcohol or drug abuse patient.[facility] HospitalIn the event this information is protected by the Federal Confidentiality of Alcohol and Drug Abuse Patient Records regulations: The Federal rules restrict any use of the information to criminally investigate or prosecute any alcohol or drug abuse patient.[facility] HospitalIn the event this information is protected by the Federal Confidentiality of Alcohol and Drug Abuse Patient Records regulations: The Federal rules restrict any use of the information to criminally investigate or prosecute any alcohol or drug abuse patient.[facility] HospitalIn the event this information is protected by the Federal Confidentiality of Alcohol and Drug Abuse Patient Records regulations: The Federal rules restrict any use of the information to criminally investigate or prosecute any alcohol or drug abuse patient.[facility] HospitalIn the event this information is protected by the Federal Confidentiality of Alcohol and Drug Abuse Patient Records regulations: The Federal rules restrict any use of the information to criminally investigate or prosecute any alcohol or drug abuse patient.[facility] HospitalIn the event this information is protected by the Federal Confidentiality of Alcohol and Drug Abuse Patient Records regulations: The Federal rules restrict any use of the information to criminally investigate or prosecute any alcohol or drug abuse patient.[facility] HospitalIn the event this information is protected by the Federal Confidentiality of Alcohol and Drug Abuse Patient Records regulations: The Federal rules restrict any use of the information to criminally investigate or prosecute any alcohol or drug abuse patient.[facility] HospitalIn the event this information is protected by the Federal Confidentiality of Alcohol and Drug Abuse Patient Records regulations: The Federal rules restrict any use of the information to criminally investigate or prosecute any alcohol or drug abuse patient.[facility] HospitalIn the event this information is protected by the Federal Confidentiality of Alcohol and Drug Abuse Patient Records regulations: The Federal rules restrict any use of the information to criminally investigate or prosecute any alcohol or drug abuse patient.[facility] HospitalIn the event this information is protected by the Federal Confidentiality of Alcohol and Drug Abuse Patient Records regulations: The Federal rules restrict any use of the information to criminally investigate or prosecute any alcohol or drug abuse patient.[facility] HospitalIn the event this information is protected by the Federal Confidentiality of Alcohol and Drug Abuse Patient Records regulations: The Federal rules restrict any use of the information to criminally investigate or prosecute any alcohol or drug abuse patient.[facility] HospitalIn the event this information is protected by the Federal Confidentiality of Alcohol and Drug Abuse Patient Records regulations: The Federal rules restrict any use of the information to criminally investigate or prosecute any alcohol or drug abuse patient.[facility] Reason for Visit (unrecogniz ed section [...] & [place] [address] [place] [address] [place] [address] Referral ID Status Reason Start Date Expiration Date V isits Requested Visits Authorized [id number] Closed Auto-Generate d Referral 05/27/2022 06/26/2023 1 [...] Received Outside Medical Records [facility] Reason Comments Received Outside Medical Records Cardio Clearance [facility] Reason Comments Back Pain Reason Comments Dyspareunia [...] ligament of right ankle, subsequent encounter Procedures RI OFFICE/OUTPATIENT NEW HIGH MDM Giovani Hagen MD [address] [place] [address] Phone: tel: fax: Prateek Pedraza DPM [address] [place] [address] Phone: tel: fax: Referral ID Status Reason Start Date Expiration Date V isits Requested Visits Authorized [id number] Closed Specialty Services Required 04/22/2024 10/19/2024 1 [...] WK 2 post op Reason Comments Painful [facility] [place] bleeding with intercourse Reason Comments Post-op 3 [...] EXERCISES RE, EA 15 MIN. Mario Harper APRN.[address] [address] [place] [address] Phone: tel: fax: [facility] [address] [place] [address] Referral ID Status Reason Start Date Expiration Date Visits Requested Visits Authorized [id number] Authorized Auto-Generat ed Referral 10/23/2023 10/21/2024 25 25 Reason Comments Radio Gen RMP Specialty Diagnoses / Procedures Referred By Contac t Referred To Contact XR IMAGING Diagnoses Pelvic floor dysfunction Chronic constipation Procedures XR ABDOMEN 1V SUPINE RADIOLOGIC EXAM ABDOMEN 1 VIEW Mario Harper, [place].[address] [address] [place] [address] Phone: tel: fax: [facility] [place] [address] Referral ID Status Reason Start Date Expiration Date Visits Requested Visits Authorized [id number] Authorized Auto-Generat ed Referral 10/09/2024 11/08/2025 3 [...] dyspareunia Pelvic pain in female Procedures OFFICE/OUTPATIENT [facility] 60 MINUTES Javy Boudreaux MD [address] [address] Phone: tel: fax: Referral ID Status Reason Start Date Expiration Date V isits Requested Visits Authorized [id number] Closed PCP Requested Referral Auto-Generated Referral 07/10/2024 07/10/2025 1 1 Reason Onset Date Comments Med Refill 01/22/2025 Goals (unrecognized section and content) Goals may [...] BE BASED ON THE PRIMARY CLINICAL RECORDS. [facility] [employer] [facility]. provides no warranty or guarantee of the accuracy or completeness of information in this document.
[2025-02-06 11:57] LABS: Alanine Aminotransferase 65 U/L (14-59); Albumin Globulin Ratio 1.0; Albumin Level 3.7 g/dL (3.4-5.0); Alkaline Phosphatase 107 U/L (46-116); Anion Gap 13.5; Aspartate Amino Transferase 23 U/L (15-37); Blood Urea Nitrogen 16.0 mg/dL (7.0-18.0); Calcium 9.2 mg/dL (8.5-10.1); Carbon Dioxide 27.9 mmol/L (21.0-32.0); Chloride 105 mmol/L (98-107); Cholesterol 207 mg/dL (<=200); Estimated GFR (African America >60 (>=60 mL/min/1.73m^2); Estimated GFR (Non-African Ame >60 (>=60 mL/min/1.73m^2); Globulin 3.7 g/dL; Glucose 111 mg/dL (74-106); HDL Cholesterol 73 mg/dL (40-60); Potassium 4.4 mmol/L (3.5-5.1); Sodium 142 mmol/L (136-145); Total Protein 7.4 g/dL (6.4-8.2); Triglycerides 133 mg/dL (<=150); VLDL CHOLESTEROL 26.6 mg/dL
== END 2025-02-06 10:22 | disposition home or self-care (01) ==
LOC: LAB 10:22
PROVIDERS: PCP Family Medicine
DX: Z13.228 Encounter for screening for other metabolic disorders (principal)
CPT/HCPCS: 36415; 80053; 80061; 83036

== ENCOUNTER 2025-02-27 19:05 | Outpatient (REF) | payer OTHER, SELFPAY ==
--- OUTSIDE RECORDS SUMMARY | 2024-03-25 06:20 | XMS_ITS ---
Author Organization [facility] Address [address] [place] [address] Care Team Providers Care Spray Stainer Name Role Phone Keegan Trujillo [facility] [phone] REASON FOR VISIT RIGHT ANKLE PAIN Encounters Encounter Location Date Provider Diagnosis [facility] [address] [facility] [place] [address] [place] [address] 03/25/2024 Keegan Trujillo Plan Of Treatment No Information Progress Notes * MEREDITHREJINOEDOB: 9 (34 yo F)Acc No.[id number]:03/25/2024 Patient:?REJI HARPERSICA :?Keegan Trujillo MDDOB:1990???Age:33 Y ???Sex:FemaleDate:4Phone:[phone]:[phone] Subjective: * Chief Complaints: * 1 . RIGHT ANKLE PAIN. * Medical History: Objective: * Vitals: Assessment: Plan: * Treatment: Forms: * Images: * Electronic signature of Keegan Trujillo MD on 02/27/2025 at 07:12 PM ESTSign off status: Pending * Provider: Rodney Trujillo MD Date: 05/26/2023 Generated for Printing/Faxing/eTransmitting on:?02/27/2025 07:12 PM EST
--- OUTSIDE RECORDS SUMMARY | 2024-04-01 04:50 | XMS_ITS ---
Author Organization [facility] Address [address] [place] [address] Care Team Providers Care Chief Procurement Officer Name Role Phone Keegan Trujillo [facility] [phone] REASON FOR VISIT RIGHT ANKLE PAIN Encounters Encounter Location Date Provider Diagnosis [facility] [address] [facility] [place] [address] 04/01/2024 Keegan Trujillo Plan Of Treatment No Information Progress Notes * MEREDITHREJINOEDOB: 9 (34 yo F)Acc No.[id number]:04/01/2024 Patient:?REJI HARPERSICA :?Keegan Trujillo MDDOB:1990???Age:33 Y ???Sex:FemaleDate:4Phone:[phone]:[phone] Subjective: * Chief Complaints: * 1 . RIGHT ANKLE PAIN. * Medical History: Objective: * Vitals: Assessment: Plan: * Treatment: Forms: * Images: * Electronic signature of Keegan Trujillo MD on 02/27/2025 at 07:13 PM ESTSign off status: Pending * Provider: Rodney Trujillo MD Date: 06/02/2023 Generated for Printing/Faxing/eTransmitting on:?02/27/2025 07:13 PM EST
--- OUTSIDE RECORDS SUMMARY | 2024-04-08 03:15 | XMS_ITS ---
Author Organization The [facility] in [place] Address [address] [place] [address] Care Team Providers Care Batch Heat Treat Operator Name Role Phone Laura FRIEDMAN, Emerald Primary Care Provider Bernardo Busch Unavailable [phone] REASON FOR VISIT RT ankle arthroscopy Encounters Encounter Location Date Provider Diagnosis [facility] [address] [place] [id number] 04/08/2024 Bernardo Duong Plan Of Treatment No Information Progress Notes * Belgica HARPERDOB: [birth year] (34 yo F)Acc No.[id number]:04/08/2024 UNLOCKED PROGRESS NOTE Patient:Hannah HARTsica :?Bernardo Duong DPM, MSDOB:1990???Age: 33 Y???Sex:FemaleDate:4Phone:[phone]:[address]-[id number]:Emerald Sanchez MD * * Electronic signature of Bernardo Duong DPM on 02/27/2025 at 07:15 PM ESTSign off status: PendingVisit Status:?CANC (Cancelled) * Provider: Palomo Duong DPM, MS Date: 06/09/2023 Generated for Printing/Faxing/eTransmitting on:?02/27/2025 07:15 PM EST
--- OUTSIDE RECORDS SUMMARY | 2024-09-30 11:30 | XMS_ITS ---
Author Organization [employer] es Address [address] [place] [place] [address] Care Team Providers Care Covering And Lining Supervisor Name Role Phone Radha Rosas Primary Care Provider [phone] Dagoberto Garsia Unavailable [phone] REASON FOR VISIT BH Consult - Adult; REFERRAL FROM [facility] B[facility], ANX, DEP Encounters Encounter Location Date Provider Diagnosis [facility] [address] [place] [address] 2024 Dagoberto Garsia Plan Of Treatment Next Appt Details Provider Name:Radha sal, 03/10/2025 02:30:00 PM, [address], [address], Progress Notes * ORION HARPER ADOB: [birth year] (34 yo F)Acc No.[id number]:09/30/2024 Behavioral Health Patient: REJI SIMONNOE Mcclellan :?DAYNA EnnisPDOB:1990???Age:34 Y???Sex: FemaleDate:09/30/2024Phone:[phone]:[address] [place] [id number]:Rdaha Rosas Subjective: * Chief Complaints: * B H Consult - Adult; REFERRAL FROM [facility], ANX, DEP * Electronic signature of NII Ennis on 02/27/2025 at 07:13 PM ESTSign off status: Pending * Provider: NII Sanford Date: 0 09/30/2024 Generated for Printing/Faxing/eTransmitting on:?02/27/2025 07:13 PM EST
--- OUTSIDE RECORDS SUMMARY | 2024-10-30 04:15 | XMS_ITS ---
Author Organization [facility] es Address [address] [place] [address] Care Team Providers Care Transplant Nurse Name Role Phone Radha Rsoas Primary Care Provider REASON FOR VISIT BH F/U Encounters Encounter Location Date Provider Diagnosis [facility] [address] [place] [place] [address] 10/30/2024 Radha Rosas Plan Of Treatment Next Appt Details Provider Name:Radha sal, 03/10/2025 02:30:00 PM, [address] [place] [address] [place], [address], Progress Notes * ORION HARPER ADOB: [birth year] (34 yo F)Acc No.[id number]:10/30/2024 Behavioral Health Patient: REJI SIMONNOE Mcclellan :?Radha Rosas CNPDOB:1990???Age:34 Y ???Sex:FemaleDate:10/30/2024Phone:[phone]:NADE[place] QUEEN [id number] Subjective: * Chief Complaints: * B H F/U * Electronic signature of SHYANNE Krueger on 02/27/2025 at 02:11 PM ESTSign off status: Pending * Provider: Mary Ellen Rosas CNP Date: 0 10/30/2024 Generated for Printing/Faxing/eTransmitting on:?02/27/2025 02:11 PM EST
--- OUTSIDE RECORDS SUMMARY | 2024-11-15 06:00 | XMS_ITS ---
Author Organization [employer] [facility] Address [address] [place] [address] Care Team Providers Care Transit Bus Driver Name Role Phone Radha Rosas Primary Care Provider REASON FOR VISIT BH F/U Encounters Encounter Location Date Provider Diagnosis [facility] [address] [place] [address] 11/15/2024 Radha Rosas Plan Of Treatment Next Appt Details Provider Name:Radha sal, 03/10/2025 02:30:00 PM, [address] [place], [address], Progress Notes * ORION HARPER ADOB: [birth year] (34 yo F)Acc No.[id number]:11/15/2024 Behavioral Health Patient: REJI SIMONNOE Mcclellan :?Radha Rosas CNPDOB:1990???Age:34 Y ???Sex:FemaleDate:11/15/2024Phone:[phone]:[address] [place] [phone] Subjective: * Chief Complaints: * B H F/U Billing Information: * Procedure Codes: * Electronic signature of SHYANNE Krueger on 02/27/2025 at 07:12 PM ESTSign off status: Pending * Provider: Mary Ellen Rosas CNP Date: 0 11/15/2024 Generated for Printing/Faxing/eTransmitting on:?02/27/2025 07:12 PM EST
--- OUTSIDE RECORDS SUMMARY | 2024-12-06 03:30 | XMS_ITS ---
Author Organization [employer] es Address [address] [place] [address] Care Team Providers Care Story Editor Name Role Phone Radha Rosas Primary Care Provider [phone] Encounters Encounter Location Date Provider Diagnosis [facility] [place] [address] [place] [address] 12/06/2024 Radha Rosas Plan Of Treatment Next Appt Details Provider Name:Radha sal, 03/10/2025 02:30:00 PM, [address] [facility] [place], [address], Progress Notes * ORION HARPER ADOB: [birth year] (34 yo F)Acc No.[id number]:12/06/2024 Behavioral Health Patient: REJI SIMONNOE Mcclellan :?Radha Rosas CNPDOB:1990???Age:34 Y ???Sex:FemaleDate:12/06/2024Phone:[phone]:NADEGE QUEEN [phone] Billing Information: * Procedure Codes: * Electronic signature of SHYANNE Krueger on 02/27/2025 at 07:14 PM ESTSign off status: Pending * Provider: Mary Ellen Rosas CNP Date: 0 12/06/2024 Generated for Printing/Faxing/eTransmitting on:?02/27/2025 07:14 PM EST
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
--- OUTSIDE RECORDS SUMMARY | 2024-12-27 05:15 | XMS_ITS ---
Author Organization [facility] Address [address] [place] [address] Care Team Providers Care Business Development Manager Name Role Phone Radha Rosas Primary Care Provider REASON FOR VISIT BH F/U Encounters Encounter Location Date Provider Diagnosis [facility] [address] [place] [address] 12/27/2024 Radha Rosas Plan Of Treatment Next Appt Details Provider Name:Radha sal, 03/10/2025 02:30:00 PM, [address] [place], [address], Progress Notes * ORION HARPER ADOB: [birth year] (34 yo F)Acc No.[id number]:12/27/2024 Behavioral Health Patient: REJI SIMONNOE Mcclellan :?Radha Rosas CNPDOB:1990???Age:34 Y ???Sex:FemaleDate:12/27/2024Phone:[phone]:[address] [id number] Subjective: * Chief Complaints: * B H F/U * Electronic signature of SHYANNE Krueger on 02/27/2025 at 07:14 PM ESTSign off status: Pending * Provider: Mary Ellen Rosas CNP Date: 0 12/27/2024 Generated for Printing/Faxing/eTransmitting on:?02/27/2025 07:14 PM EST
--- OUTSIDE RECORDS SUMMARY | 2025-01-22 10:45 | XMS_ITS ---
Author Organization [employer] es Address [address] [place] [address] Care Team Providers Care Ski Top Trimmer Name Role Phone Radha Rosas Primary Care Provider [phone] REASON FOR VISIT BH 1 month f/u Encounters Encounter Location Date Provider Diagnosis [facility] [address] [place] [address] 01/22/2025 Radah Rosas Plan Of Treatment Next Appt Details Provider Name:Radha sal, 03/10/2025 02:30:00 PM, [address] [place], [address], Progress Notes * ORION HARPER ADOB: [birth year] (34 yo F)Acc No.[id number]:01/22/2025 Behavioral Health Patient: REJI SIMONSICA Eleuterio :?Radha Rosas CNPDOB:1990???Age:34 Y ???Sex:FemaleDate:01/22/2025Phone:[phone]:[address] [id number] Subjective: * Chief Complaints: * B H 1 month f/u * Electronic signature of SHYANNE Krueger on 02/27/2025 at 07:13 PM ESTSign off status: Pending * Provider: Mary Ellen Rosas CNP Date: Generated for Printing/Faxing/eTransmitting on:?02/27/2025 07:13 PM EST
--- OUTSIDE RECORDS SUMMARY | 2025-01-31 11:15 | XMS_ITS ---
Author Organization [employer] es Address [address] [place] [address] Care Team Providers Care Dresser Tender Name Role Phone Radha Rosas Primary Care Provider REASON FOR VISIT rescheduled from 01/22 Encounters Encounter Location Date Provider Diagnosis [facility] [address] [place] [address] 01/31/2025 Radha Rosas Plan Of Treatment Next Appt Details Provider Name:Radha sal, 03/10/2025 02:30:00 PM, [address] [place], [address], Progress Notes * ORION HARPER ADOB: [birth year] (34 yo F)Acc No.[id number]:01/31/2025 Behavioral Health Patient: REJI SIMONSICA Eleuterio :?Radha Rosas CNPDOB:1990???Age:34 Y ???Sex:FemaleDate:01/31/2025Phone:[phone]:[id number] Subjective: * Chief Complaints: * R escheduled from 01/22 Billing Information: * Procedure Codes: * Electronic signature of SHYANNE Krueger on 02/27/2025 at 07:15 PM ESTSign off status: Pending * Provider: Mary Ellen Rosas CNP Date: Generated for Printing/Faxing/eTransmitting on:?02/27/2025 07:15 PM EST
--- OUTSIDE RECORDS SUMMARY | 2025-02-17 08:00 | XMS_ITS | Encounter Summary ---
Author Organization [facility] Address [address] [place] [address] Care Team Providers Care Linoleum Installer Name Role Phone Emerald Sanchez MD Primary Care Provider [phone] Deena Osorio DRILLER HAND Unavailable [phone] Darwin Starr DO Unavailable [phone] Source Comments In the event this information is protected by the Federal Confidentiality of Alcohol and Drug AbusePatient Records regulations: The Federal rules restrict any use of the information to criminally investigate or prosecute any alcohol or drug abuse patient.[facility] Reason for Referral * Outpatient Procedure (Routine) - ClosedSpecialtyDiagnoses / ProceduresReferred By ContactReferred To [facility] Diagnoses Choking, initial encounter Gastroesophageal reflux disease, unspecified whether esophagitis present Helicobacter pylori gastritis Gastroparesis Procedures EGD - THERAPEUTIC, EUS, OR TUBE INTERVENTIONS EGD DILATION GASTRIC/[place] [address] [facility] [address] Phone: tel: fax: [facility] [address] [place] [address] Referral IDStatusReasonStart DateExpiration DateVisits RequestedVisits [id number] Auto-Generated Referral / Reason for Visit * ReasonCommentsGERD Encounter Details DateTypeDepartmentCare Team (Latest Contact Info)Twaiybbbrgw32/27/2025 9:00 AM EDTOffice Visit Gastroenterology [address] [place] [address] [place] [address] [place] [id number] Choking, initial encounter (Primary Dx); Gastroesophageal reflux disease, unspecified whether esophagitis present; Helicobacter pylori gastritis; Gastroparesis; Chronic constipation; Metabolic dysfunction-associated steatotic liver disease (MASLD) Social History Tobacco UseTypesPacks/DayYears UsedDateSmoking Tobacco: NeverSmokeless Tobacco: NeverAlcohol UseStandard Drinks/WeekCommentsYes4 (1 standard drink = 0.6 oz pure alcohol)sociallyPHQ-2AnswerDate RecordedPHQ-2 [id number] RecordedQ1: How often do you have a drink containing alcohol?Never02/17/2025 Average Number of DrinksNot on file02/17/2025Frequency of Binge DrinkingNot on file02/17/2025rea Deprivation IndexAnswerDate RecordedNational Score (1-100), lower number is lower twdh607510/17/2022State Score (1-10), lower number is lower [id number] from: https://www.neighborhoodatlas.medicine.[facility].edu/. Last address used for [id number] regnantCommentsNoSex and Gender InformationValueDate RecordedSex Assigned at BirthNot on fileLegal Sex Alsrao2101/24/2019 9:05 PM EDTGender LurkfkehHrzlzw36/15/2022 8:30 AM ESTSexual OrientationNot on filedocumented as of this encounter Last Filed Vital Signs Vital SignReadingTime TakenCommentsBlood Qxjnslac994/8910/ 9:00 AM EDT Abihy23597 9:00 AM EDTTemperature--Respiratory Rate--Oxygen Saturation-- Inhaled Oxygen Concentration--Exuftb96 kg (211 lb 10.3 oz)02/17/2025 9:00 AM EDT Height--Body Mass Index37.4904 2:57 PM EDTdocumented in this encounter Functional Status documented as of this encounter Patient Instructions * Patient Instructions* Grayson Peter MD - 02/17/2025 9:24 AM EDT We discussed your swallowing difficulties, acid reflux, and heartburn: - We will schedule an endoscopy to evaluate your esophagus and stomach. During the procedure, I will check if any stretching of the esophagus is needed to help with swallowing, and I will re-evaluateyour gastroparesis. - Please do not take any anti-acid medications, including pantoprazole, for a total of 2 weeks before your H. pylori breath test. You stopped pantoprazole about a week ago, so please remain off it for one more week. - After you have been off anti-acid medications for 2 weeks, we will perform the H. pylori breath test to check if the infection has been eradicated. - If the breath test is still positive for H. pylori, we will take biopsies during your endoscopy to determine which antibiotics will be most effective. We discussed your history of gastroparesis and irritable bowel syndrome (IBS-C): - We will re-evaluate your gastroparesis during your upcoming endoscopy. - You are currently following a diet plan through the [employer] program with support from a doctor, dietitian, and nurse. We discussed your liver health: - We will repeat your liver enzyme blood tests today to monitor your liver function. We discussed your diabetes: - Please hold your Farxiga for 2 to 3 days before your scheduled endoscopy. Follow-up: - We will schedule your H. pylori breath test after you have been off anti-acid medications for 2 weeks. - After the breath test, we will schedule your endoscopy. documented in this encounter Progress Notes * Grayson Peter MD - 02/17/2025 9:00 AM EDT Images from the original note were not included. HPI: Belgica Barnett, 34 year old female, presents in the office today for choking The patient is a 34-year-old female with gastroparesis, H. pylori gastritis, MASLD, and diabetes mellitus, presenting with one month of dysphagia to solids and liquids. She reports frequent episodes of choking and severe coughing with both solids and liquids, describing a sensation of food being stuck in the back of her throat that eventually clears after repeated coughing. She also notes persistent heartburn, now accompanied by a burning sensation in her throat. She stopped drinking alcohol about a month ago due to worsening heartburn, but has since experiencedweight gain. She also recently quit smoking and vaping. Her bowel habits are variable, with alternating constipation and diarrhea. She recalls a prior diagnosis of IBS-C. She is currently taking pantoprazole, which she last took about a week ago, and Farxiga for diabetes. She previously used Wegovy for weight loss, but discontinued it about 2 years ago after being diagnosed with gastroparesis. Her most recent EGD in 08/2022 showed normal hypopharynx and esophagus, retained food in the stomach, and normal small intestine biopsies. Gastric biopsies revealed H. pylori-associated chronic activegastritis, initially treated with Pylera and PPI without eradication. She subsequently received rifabutin 300 mg daily, amoxicillin 750 mg TID, and 2 weeks of PPI. No follow-up breath test has been performed. Small bowel biopsies showed normal villi with a slightly patchy increase in intraepithelial lymphocytes. A gastric emptying scan confirmed gastroparesis, which she describes as ???pretty bad.?? She was evaluated by Dr. Corey, who recommended dietary changes and considered autoimmune gastrointestinal dysmotility, but antibody workup was normal. She was referred to a female recreational assistant and was re commended IBSRELA, which she did not start due to insurance issues. Capsule endoscopy was also recommended but not completed due to cost. Laparoscopy by her cop breaker ruled out endometriosis. 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 FibroScan in April showed minimal scarring and S2 steatotic changes. She reports social alcohol use on weekends or every other weekend. She has been biking 16 miles a day, but continues to gain weight. She is enrolled in the [employer] program through her employer, which provides a meal plan and daily monitoring of glucose, weight,and blood pressure. Past Clinical Workup: Last OV - Iliana Hendrickson PA-C Gastroenterology Assessment IMPRESSION Ms. Barnett is a 33 year old female who presents for follow up of elevated LFTs; likely MASH and BRBPR x1 month. Plan for colonoscopy to evaluate further for BRBPR. She will also have chronic liver disease work up completed and repeat fibroscan ordered. PLAN -Chronic liver disease work up -Colonoscopy -Fibroscan Iliana Hendrickson PA-C Recent Procedures: Colon - The examined portion of the ileum was normal. - Diverticulosis in the sigmoid colon and in the ascending colon. - Internal hemorrhoids. This is the source of rectal bleeding - Stool in the entire examined colon. Stool sample was collected for microbiology - Biopsies performed in the right colon and in the left colon. A. Colon, right, biopsy: - Colonic mucosa with no significant pathologic change. B. Colon, left, biopsy: - Colonic mucosa with no significant pathologic change. 08/2022 EGD - Normal hypopharynx. - Normal esophagus. - Z-line regular, 37 cm from the incisors. - Possible Gastroparesis. Retained food in the stomach - Normal examined duodenum. Biopsied. - Biopsies performed in the gastric antrum and in the gastric body. - Previously seen gastric ulcers had healed A. Small intestine, biopsy: -Small intestinal mucosa with normal villous architecture and slight/patchy increase in intraepithelial lymphocytes B. Stomach, antrum, biopsy: -Helicobacter pylori associated chronic active gastritis -Positive for Helicobacter pylori organisms on routine staining C. Stomach, body, biopsy: -Helicobacter pylori associated chronic active gastritis -Positive for Helicobacter pylori organisms on routine staining Recent Imagin Xr abd IMPRESSION: Sitzmarks markers as described. No dilated small bowel loops. Moderate retained stool within the RIGHT colon. Multiple Sitzmarks markers, predominantly located within the ascending RIGHT colon, splenic flexure, and rectosigmoid region. Subsequent plain film imaging performed on 10/23/2024 demonstrates complete passage of Sitzmarks markers. Fibroscan Impression The liver stiffness is 7.4 kPa which corresponds to 91% chance of stage 0-2 fibrosis. The CAP analysis showed grade S2 of liver steatosis. MRI abdomen w/o contrast Ill-defined peripancreatic fluid [...] etiology rather than retained common duct stone ontains abnormal data [facility] FERRITIN SERPL-[facility]NC Order: [id number] Component Ref Range & Units 7 mo ago [facility] FERRITIN SERPL-[facility]NC 14.7 - 205.1 ng/mL 392 High Contains abnormal data FERRITIN Order: [id number] - Reflex for Order [id number] Status: Final result Dx: BRBPR (bright red blood per rectum); ... Test Result Released: Yes (seen) 0 Result Notes Component Ref Range & Units 7 mo ago 9 mo ago Ferritin 14.7 - 205.1 ng/mL 392.0 High 420.9 High Contains abnormal data COMPREHENSIVE METABOLIC PANEL Order: [id number] - Reflex for Order [id number] Status: Final result Dx: BRBPR (bright red blood per rectum); ... Test Result Released: Yes (seen) 0 Result Notes Component Ref Range & Units 7 mo ago 9 mo ago 5 yr ago Protein, Total 6.3 - 8.0 g/dL 7.3 8.0 7.0 Albumin 3.9 - 4.9 g/dL 4.5 4.7 4.4 Calcium, Total 8.5 - 10.2 mg/dL 9.4 9.2 9.5 Bilirubin, Total 0.2 - 1.3 mg/dL 0.4 0.3 0.2 Alkaline Phosphatase 34 - 123 U/L 130 High 144 High 89 AST 13 - 35 U/L 90 High 99 High 31 ALT 7 - 38 U/L 141 High 192 High 50 High Glucose 74 - 99 mg/dL 121 High 95 CM 98 CM Comment: The [place] [employer] (ADA) provides guidance for cutoff values for fasting glucose and random glucose. The ADA defines fasting as no caloric intake for at least 8 hours. Fastingplasma glucose results between 100 to 125 mg/dL [...] Standards of Medical Care in Diabetes 2016, [place] [employer]. Diabetes Care. 2016.39(Suppl 1). BUN 7 - 21 mg/dL 9 12 19 Creatinine 0.58 - 0.96 mg/dL 0.71 0.58 0.71 Sodium 136 - 144 mmol/L 136 138 140 Potassium 3.7 - 5.1 mmol/L 3.6 Low 4.0 4.1 Chloride 98 - 107 mmol/L 102 100 105 R CO2 22 - 30 mmol/L 23 25 22 Anion Gap 8 - 15 mmol/L 11 13 13 R Estimated Glomerular Filtration Rate >=60 mL/min/1.73m 114 121 CM Comment: Estimated Glomerular Filtration Rate (eGFR) is calculated using the 2020 CKD-EPI creatinine equation. This equation utili [facility] C DIFF TOX GENS STL QL SHEILA+PROBE Order: [id number] Component Ref Range & Units 8 mo ago [facility] C DIFF TOX GENS STL QL SHEILA+PROBE Negative for C. difficile toxin by PCR Positive for C. difficile toxin by PCR Abnormal [facility] C. DIFFICILE TOXIN BY EIA Order: [id number] Component Ref Range & Units 8 mo ago [facility] C DIFF TOX A+B STL QL IA Negative for C. difficile toxin C. difficile toxin NOT DETECTED by EIA. [facility] GI PATHOGENS STL SHEILA+PROBE Order: [id number] Component Ref Range & Units 8 mo ago [facility] CAMPYLOBACTER DNA SPEC SHEILA+PROBE Not Detected Not detected [facility] SALMONELLA DNA SPEC QL SHEILA+PROBE Not Detected Not detected [facility] SHIGA TOXIN STX GENE SPEC SHEILA+PROBE Not Detected Not detected [facility] SHIGELLA DNA SPEC QL SHEILA+PROBE Not Detected Not detected Resulting Agency [facility] Narrative Performed by [facility] Specimen Type: STOOL SPECIMEN Ordering Facility: [facility] Latest Ref Rng 05/22/2024 Campylobacter jejuni/coli DNA Not Detected Not detected Salmonella species DNA Not Detected Not detected Shiga-like toxin producing E. coli (STEC) DNA Not Detected Not detected Shigella/Enteroinvasive E. coli (EIEC) DNA Not Detected Not detected C. difficile PCR Negative for C. difficile toxin by PCR Positive for C. difficile toxin by PCR ! C. difficile Toxin EIA Negative for C. difficile toxin C. difficile toxin NOT DETECTED by EIA. Latest Ref Rng 04/26/2024 WBC 3.70 - 11.00 k/uL 12.39 (H) RBC 3.90 - 5.20 m/uL 4.85 Hemoglobin 11.5 - 15.5 g/dL 15.5 Hematocrit 36.0 - 46.0 % 46.1 (H) MCV 80.0 - 100.0 fL 95.1 MCH 26.0 - 34.0 pg 32.0 MCHC 30.5 - 36.0 g/dL 33.6 RDW-CV 11.5 - 15.0 % 12.5 Platelet Count 150 - 400 k/uL 271 MPV 9.0 - 12.7 fL 10.8 Neut% % 70.8 Abs Neut (ANC) 1.45 - 7.50 k/uL 8.78 (H) Lymph% % 22.6 Abs Lymph 1.00 - 4.00 k/uL 2.80 Mccracken% % 3.3 Abs Mccracken <0.87 k/uL 0.41 Eosin% % 0.1 Abs Eosin <0.46 k/uL <0.03 Baso% % 0.5 Abs Baso <0.11 k/uL 0.06 Immature Gran % % 2.7 IMMATURE GRANS (ABS) <0.10 k/uL 0.33 (H) NRBC /100 WBC 0.0 Absolute nRBC <0.01 k/uL <0.01 DTYPE Auto Protein, Total 6.3 - 8.0 g/dL 8.0 Albumin 3.9 - 4.9 g/dL 4.7 Calcium 8.5 - 10.2 mg/dL 9.2 Bilirubin, Total 0.2 - 1.3 mg/dL 0.3 Alkaline Phosphatase 34 - 123 U/L 144 (H) AST 13 - 35 U/L 99 (H) ALT 7 - 38 U/L 192 (H) Glucose 74 - 99 mg/dL 95 BUN 7 - 21 mg/dL 12 Creatinine 0.58 - 0.96 mg/dL 0.58 Sodium 136 - 144 mmol/L 138 Potassium 3.7 - 5.1 mmol/L 4.0 Chloride 98 - 107 mmol/L 100 CO2 22 - 30 mmol/L 25 Anion Gap 8 - 15 mmol/L 13 eGFR >=60 mL/min/1.73m 121 Iron 41 - 186 ug/dL 105 TIBC 232 - 386 ug/dL 340 Transferrin Saturation 15.0 - 57.0 % 30.9 Actin Smooth Muscle IgG Qualitative Negative Negative Actin Smooth Muscle IgG Quantitative <20 Units 5 PT Sec 9.7 - 13.0 sec 10.6 PT INR 0.9 - 1.3 0.9 AFP, Serum (Tumor Marker) <9.00 ng/mL 3.01 Alpha 1 Antitrypsin 90 - 200 mg/dL 123 DENY Negative Negative Ceruloplasmin 16 - 45 mg/dL 27 Ferritin 14.7 - 205.1 ng/mL 420.9 (H) Hep A Ab, IgM Negative Negative Hep B Core Ab, IgM Negative Negative Hep B Surface Ag Negative Negative Hep C Antibody IA Negative Negative Legend: (H) High Current Medications: Current Outpatient Medications Medication Sig clonazePAM (KLONOPIN) 0.5 mg tablet Take 1 mg by mouth. cyclobenzaprine (FLEXERIL) 5 mg tablet take 1 tablet by mouth three times a day for 14 days FARXIGA 10 mg tablet Take 10 mg by mouth once daily. diclofenac, EC, (VOLTAREN) 75 mg EC tablet 1 tab(s) orally 2 times a day for 30 day(s) doxepin capsule 100 mg take 2 capsules (200 mg) by mouth at bedtime traMADol (ULTRAM) 50 mg tablet Take by [...] 300 mg 24 hr tablet 300 mg. cyclobenzaprine (FLEXERIL) [address] 1 [...] day. (Patient not taking: Reported on 12/30/2024) cariprazine (VRAYLAR) 4.5 mg capsule Take 4.5 mg by mouth once daily. No current facility-administered medications for this visit. Past Medical History: PAST MEDICAL HISTORY Diagnosis Date Asthma (HCC) Bipolar disorder (HCC) Diverticulitis 2017 Hypertension IBS (irritable bowel syndrome) Syncope Surgical History: PAST SURGICAL HISTORY Procedure Laterality Date ANKLE SURGERY HX SECTION HX x3 COLONOSCOPY 04/2018 IBS-c COLONOSCOPY SCREENING 2019 EGD DIAGNOSTIC 2022 HYSTERECTOMY HX HYSTEROSCOPY, DIAGNOSTIC (SEPARATE L'SCOPE CHOLECYSTECTOMY 2022 Family History: FAMILY HISTORY Problem Relation Age of Onset other (heart murmur) Brother Colon Cancer Maternal Grandfather started in the kidney other (murmur) Maternal Aunt Social History: SOCIAL HISTORY[1] Allergies: ALLERGIES Allergen Reactions Iodinated Contrast * Anaphylaxis, Hives, Itching Cat Dander Anaphylaxis Iv Contrast [Iodine] Swelling, Itching Omnipaque 300: Patient experienced itching on her neck and left side of her face. Also, pt complained of tongue feeling itchy and feels like something is stuck in her throat . Patient received diphenhydramine (Benadryl) Omnipaque [Iohexol] Itching Tree Nuts Anaphylaxis REVIEW OF SYSTEMS GENERAL: weight gain HEENT: Negative for frequent or significant headaches, No changes in hearing or vision, no nose bleeds or other nasal problems NECK: Negative for lumps, goiter, pain and significant neck swelling RESPIRATORY: Shortness of breath CARDIOVASCULAR: Decreasing exercise tolerence, Shortness of breath GI: see HPI : No history of dysuria, frequency or incontinence MUSCULOSKELETAL: back pain SKIN: Negative for lesions, rash, and itching PSYCH: Negative for sleep disturbance, mood disorder and recent psychosocial stressors ENDOCRINE: See HPI NEURO: foot drop, sciatica PHYSICAL EXAMINATION: LMP 05/25/2015 General appearance: Well appearing, alert, in no acute distress, well-hydrated, well nourished. andOverweight Skin: Skin color, texture, turgor normal, no suspicious rashes or lesions Head: Normocephalic, no masses, lesions, tenderness or abnormalities Eyes: Anicteric sclera. Pupils are equally round and reactive to light. Extraocular movements are intact. Oropharynx: Lips, mucosa, and tongue normal, teeth and gums normal, oropharynx normal Neck: Supple, no adenopathy; thyroid symmetric, normal size, no bruits Back: Normal exam Lungs: lungs clear to auscultation. No wheezing, rhonchi, rales Heart: RRR without murmur, gallop, or rubs. No ectopy Abdomen: Normal abdominal exam, Abdomen soft, non-tender. Bowel sounds normal. No masses, organomegaly Extremities: No deformities, edema, skin discoloration, clubbing or cyanosis. Good capillary refill. Musculoskeletal: Negative Peripheral pulses: Normal Neuro: Negative. ASSESSMENT/PLAN: 1. Choking, initial encounter - ICD9: 933.1, ICD10: T17.308A (primary diagnosis) dysphagia to solids and liquids with associated coughing and globus sensation. Differential includes GERD, H. pylori gastritis, and gastroparesis. Prior endoscopy in August 2022 showed retained food in the stomach and possible gastroparesis; gastric emptying scan confirmed severe gastroparesis - EGD - THERAPEUTIC, EUS, OR TUBE INTERVENTIONS 2. Gastroesophageal reflux disease, unspecified whether esophagitis present - ICD9: 530.81, ICD10: K21.9 - EGD - THERAPEUTIC, EUS, OR TUBE INTERVENTIONS 3. Helicobacter pylori gastritis - ICD9: 535.10, 041.86, ICD10: K29.70, B96.81 previously treated with Pylera and PPI without eradication, followed by rifabutin 300 mg daily, amoxicillin 750 mg TID, and 2 weeks of PPI. - Advised patient to discontinue pantoprazole for a total of 2 weeks prior to H. pylori breath test - BREATH TEST FOR HELICOBACTER PYLORI - EGD - THERAPEUTIC, EUS, OR TUBE INTERVENTIONS 4. Gastroparesis - ICD9: 536.3, ICD10: K31.84 - Upper endoscopy to evaluate for esophageal pathology and possible dilation; will also reassess gastroparesis. - EGD - THERAPEUTIC, EUS, OR TUBE INTERVENTIONS 5. Chronic constipation - ICD9: 564.00, ICD10: K59.09 Has daily bowel movement Not on any meds at this time Seeing pelvic floor PT 6. Metabolic dysfunction-associated steatotic liver disease (MASLD) - ICD9: 571.8, ICD10: K76.0 Elevated ferritin and liver enzymes consistent with MASLD; prior FibroScan in April showed minimal scarring and grade S2 steatosis. Patient has a history of social alcohol use and is participating in a structured dietary program through her employer. - [employer] PNL Grayson Peter MD [1] Social History Tobacco Use Smoking status: Never Smokeless tobacco: Never Vaping Use Vaping status: Never Used Substance Use Topics Alcohol use: Yes Alcohol/week: 4.0 standard drinks of alcohol Types: 2 Cans of beer, 2 Shots of liquor per week Comment: socially Drug use: Never documented in this encounter Plan of Treatment Not on file documented as of this encounter Goals GoalPatient Goal TypeAssociated ProblemsRecent ProgressPatient-Stated?Author Blood Pressure < 140/90 Blood Eeyjkdyb425/82(02/25/2025 1:56 PM EST)Solo Barclay MDdocumented as of this encounter Results * EGD - THERAPEUTIC, EUS, OR TUBE INTERVENTIONS (02/25/2025 1:26 PM EST) Anatomical RegionLateralityModalityOtherSpecimen (Source)Anatomical Location / LateralityCollection Method / VolumeCollection TimeReceived Time02/25/2025 1:26 PM EST Narrative 02/25/2025 1:43 PM EST [facility] Gastroenterology Gastrointestinal Endoscopy Patient Name: Belgica Barnett Procedure Date: 02/25/2025 1:26 PM Date of : 1990 Admit Type: Outpatient Age: 34 Room: [facility] Gender: Female Note Status: Finalized Attending MD: Grayson Peter MD, [id number] Procedure: ? Upper GI endoscopy Indications: ? Dysphagia, choking Providers: ? Grayson Peter MD Patient Profile: ? This is a 34 year old female. Refer to note in ? patient chart for documentation of history and ? physical. Referring Physician: ?? Grayson Peter MD (Referring MD) Medicines: ? Monitored Anesthesia Care Complications: ? No immediate complications. Requesting Provider: ?? Procedure: ? Pre-Anesthesia Assessment: ? - Prior to the procedure, a History and Physical ? was performed, and patient medications and ? allergies were reviewed. The patient is competent. ? The risks and benefits of the procedure and the ? sedation options and risks were discussed with the ? patient. All questions were answered and informed ? consent was obtained. Patient identification and ? proposed procedure were verified by the physician, ? the nurse, the truck hop and the prior authorization technician in ? the procedure room. Mental Status Examination: ? alert and oriented. Airway Examination: normal ? oropharyngeal airway and neck mobility. Respiratory ? Examination: clear to auscultation. CV Examination: ? normal. Prophylactic Antibiotics: The patient does ? not require prophylactic antibiotics. Prior ? Anticoagulants: The patient has taken no ? anticoagulant or antiplatelet agents. ASA Grade ? Assessment: III - A patient with severe systemic ? disease. After reviewing the risks and benefits, ? the patient was deemed in satisfactory condition to ? undergo the procedure. The anesthesia plan was to ? use monitored anesthesia care (MAC). Immediately ? prior to administration of medications, the patient ? was re-assessed for adequacy to receive sedatives. ? The heart rate, respiratory rate, oxygen ? saturations, blood pressure, adequacy of pulmonary ? ventilation, and response to care were monitored ? throughout the procedure. The physical status of ? the patient was re-assessed after the procedure. ? After obtaining informed consent, the endoscope was ? passed under direct vision. Throughout the ? procedure, the patient's blood pressure, pulse, and ? oxygen saturations were monitored continuously. The ? Endoscope was introduced through the mouth, and ? advanced to the second part of duodenum. I was ? present and participated during the entire ? procedure, including non-mccarty portions, and during ? the administration and monitoring of Moderate ? Sedation. The upper GI endoscopy was accomplished ? without difficulty. The patient tolerated the ? procedure well. Moderate Sedation: ? MAC anesthesia was administered by the anesthesia ? team. Findings: ? The hypopharynx was normal. ? LA Grade C (one or more mucosal breaks continuous between tops of 2 ? or more mucosal folds, less than 75% circumference) esophagitis with ? no bleeding was found 30 to 35 cm from the incisors. Brushings for ? cytology were obtained in the lower third of the esophagus. ? Suspect gastroparesis due to retained gastric contents. ? A large amount of food (residue) was found in the entire examined ? stomach. ? The examined duodenum was normal. Impression: ?- Normal hypopharynx. ? - LA Grade C reflux esophagitis with no bleeding. ? Brushings performed. ? - Gastroparesis. ? - A large amount of food (residue) in the stomach. ? - Normal examined duodenum. ? - Limited exam Recommendation: ?- Await pathology results. ? - Gastroparesis diet. ? - Use Protonix (pantoprazole) 40 mg PO BID for 2 ? months. ? - Repeat upper endoscopy in 2 months to check ? healing. Needs to be on clear liquid diet the day ? prior to the scope ? - Discharge patient to home (ambulatory). Procedure Code(s): ? --- Professional --- ? 13325, Esophagogastroduodenoscopy, flexible, ? transoral; diagnostic, including collection of ? specimen(s) by brushing or washing, when performed ? (separate procedure) Diagnosis Code(s): ? --- Professional --- ? K21.00, Gastro-esophageal reflux disease with ? esophagitis, without bleeding ? K31.84, Gastroparesis ? R13.10, Dysphagia, unspecified CPT copyright 2020 [employer]. All rights reserved. The codes documented in this report are preliminary and upon engineer exhauster review may be revised to meet current compliance requirements. Scope In: 1:29:08 PM Scope Out: 1:31:54 PM Grayson Peter MD 02/25/2025 1:41:26 PM This report has been signed electronically by Grayson Peter MD Number of Addenda: 0 Note Initiated On: 02/25/2025 1:26 PM Estimated Blood Loss: ? Estimated blood loss: none. Authorizing ProviderResult TypeResult Liz Peter MDDIGESTIVE DISEASEFinal Result * BREATH TEST FOR HELICOBACTER PYLORI (02/18/2025)Specimen (Source)Anatomical Location / LateralityCollection Method / VolumeCollection TimeReceived Time BreathBREATH / Aofgpdc5602/18/2025 Impressions [facility] - 02/18/2025 Negative Narrative Authorizing ProviderResult TypeResult Liz Peter MDLABORATORYFinal Result Performing OrganizationAddressCity/State/ZIP CodePhone Number [facility] [address] [place] [address] * (ABNORMAL) HEPATIC FUNCTION PNL (02/17/2025 11:36 AM EDT)ComponentValueRef RangeTest MethodAnalysis TimePerformed AtPathologist SignatureAlbumin4.43.9 - 4.9 g/dL02/17/2025 12:44 PM [facility] LABORATORYBilirubin, Total0.20.2 - 1.3 mg/dL02/17/2025 12:44 PM [facility] LABORATORYBilirubin, Direct0.1 <0.3 mg/dL02/17/2025 12:44 PM [facility] LABORATORYAlkaline Phosphatase 130(H)34 - 123 U/L1 12:44 PM [facility] QBNASLURDEOXT4458 - 35 U/L1 12:44 PM [facility] VSQQRCZOUFWVQ64(H)7 - 38 U/L1 12:44 PM [facility] LABORATORYProtein, Total7.36.3 - 8.0 g/dL02/17/2025 12:44 PM [facility] LABORATORYSpecimen (Source)Anatomical Location / LateralityCollection Method / VolumeCollection TimeReceived TimeBloodBLOOD SPECIMEN / UnknownVenipuncture / Bsosziu9502/17/2025 11:36 AM EDT1 11:36 AM EDT Narrative Authorizing ProviderResult TypeResult StatusNoekrry Peter MDLABORATORYFinal Result Performing OrganizationAddressCity/State/ZIP CodePhone Number [facility] [address] [place] [address], documented in this encounter Visit Diagnoses Diagnosis Choking, initial encounter- Primary Gastroesophageal reflux disease, unspecified whether esophagitis present Helicobacter pylori gastritis Helicobacter pylori (H. pylori) Gastroparesis Chronic constipation Unspecified constipation Metabolic dysfunction-associated steatotic liver disease (MASLD) Helicobacter pylori gastritis Helicobacter pylori (H. pylori) Esophagitis- Primary Esophagitis, unspecified Choking, initial encounter Gastroesophageal reflux disease, unspecified whether esophagitis present Helicobacter pylori gastritis Helicobacter pylori (H. pylori) Gastroparesis documented in this encounter Care Teams Team MemberRelationshipSpecialtyStart DateEnd Date Emerald Sanchez MD [address] [facility] [address] [place] [address] PCP - GeneralFamily Tictfmqw84/4/19 Deena Osorio APRN [address] [facility] [address] [place], [place] [id number] ReferringFamily Bomlbbam25/11/24 Darwin Starr DO [address] [place] [address] Dr Carlyle Mancuso, [place] [id number] ReferringOb/Gyn07/02/24documented as of this encounter
--- OUTSIDE RECORDS SUMMARY | 2025-02-18 14:30 | XMS_ITS | Encounter Summary ---
Author Organization [facility] Address [address] [place] [address] Care Team Providers Care Scrap Iron Loader Name Role Phone Emerald Sanchez MD Primary Care Provider [phone] Deena Osorio ALTERATIONS WORKROOM CLERK Unavailable [phone] Darwin Starr DO Unavailable [phone] Source Comments In the event this information is protected by the Federal Confidentiality of Alcohol and Drug AbusePatient Records regulations: The Federal rules restrict any use of the information to criminally investigate or prosecute any alcohol or drug abuse patient.[facility] Reason for Visit * ReasonCommentsH. Pylori Breath Test Encounter Details DateTypeDepartmentCare Team (Latest Contact Info)Setfryefjdv55/28/2025 3:30 PM EDTNurse Visit Gastroenterology [address] [place] [address] [facility] Nurse [facility] [address] [place] [address] Helicobacter pylori gastritis Social History Tobacco UseTypesPacks/DayYears UsedDateSmoking Tobacco: NeverSmokeless Tobacco: NeverAlcohol UseStandard Drinks/WeekCommentsYes4 (1 standard drink = 0.6 oz pure alcohol)sociallyPHQ-2AnswerDate RecordedPHQ-2 vsivs354UDIT-CAnswerDate RecordedQ1: How often do you have a drink containing alcohol?Never02/17/2025 Average Number of DrinksNot on file02/17/2025Frequency of Binge DrinkingNot on file02/17/2025rea Deprivation IndexAnswerDate RecordedNational Score (1-100), lower number is lower iwdc416410/17/2022State Score (1-10), lower number is lower rhot162ata from: https://www.neighborhoodatlas.medicine.[facility].edu/. Last address used for [address] [place] [address]/17/2022CommentsNoSex and Gender InformationValueDate RecordedSex Assigned at BirthNot on fileLegal Sex Kbakkk2801/24/2019 9:05 PM EDTGender ZllaueaeKpqtuk58/15/2022 8:30 AM ESTSexual OrientationNot on filedocumented as of this encounter Plan of Treatment Not on file documented as of this encounter Goals GoalPatient Goal TypeAssociated ProblemsRecent ProgressPatient-Stated?Author Blood Pressure < 140/90 Blood Xgihzpct550/82(02/25/2025 1:56 PM EST)Solo Barclay, MDdocumented as of this encounter Procedures Procedure NamePriorityDate/TimeAssociated DiagnosisCommentsBREATH TEST H PYLORI Eujgxsj8602/18/2025 Helicobacter pylori gastritis documented in this encounter Results * BREATH TEST FOR HELICOBACTER PYLORI (02/18/2025)Specimen (Source)Anatomical Location / LateralityCollection Method / VolumeCollection TimeReceived Time BreathBREATH / Kgetrne6002/18/[address] [facility] - 02/18/2025 Negative Narrative Authorizing ProviderResult TypeResult StatusNokerry Peter MDLABORATORYFinal Result Performing OrganizationAddressCity/State/ZIP CodePhone Number [facility] [address] [place] [address] documented in this encounter Visit Diagnoses Diagnosis Helicobacter pylori gastritis Helicobacter pylori (H. pylori) documented in this encounter Care Teams Team MemberRelationshipSpecialtyStart DateEnd Date Emerald Sanchez MD [address] [facility] [address] [place] [address] PCP - GeneralFamily Laepjeef79/4/19 Deena Osorio APRN [address] [facility] [address] [place] [address] ReferringFamily Cagnabqh48/11/24 Darwin Starr DO [address] [place] [address] [place] [address] ReferringOb/Gyn07/02/24documented as of this encounter
--- OUTSIDE RECORDS SUMMARY | 2025-02-25 12:30 | XMS_ITS | Encounter Summary ---
Author Organization [facility] Address [address] [place] [address] Care Team Providers Care Form Tamping Machine Operator Name Role Phone Emerald Sanchez MD Primary Care Provider [phone] Deena Osorio TELEPHONE MAINTENANCE MECHANIC Unavailable [phone] Darwin Starr DO Unavailable Source Comments In the event this information is protected by the Federal Confidentiality of Alcohol and Drug AbusePatient Records regulations: The Federal rules restrict any use of the information to criminally investigate or prosecute any alcohol or drug abuse patient.[facility] Reason for Referral * Outpatient Procedure (Routine) - New RequestSpecialtyDiagnoses / Procedures Referred By [facility]Ref[facility] Diagnoses Choking, initial encounter Gastroparesis Esophagitis Procedures EGD - THERAPEUTIC, EUS, OR TUBE INTERVENTIONS EGD DILATION GASTRIC/[place] [address] [place] [address] Phone: tel: fax: [facility] [address] [place] [address] Referral IDStatusReasonStart DateExpiration DateVisits RequestedVisits [id number] Request Auto-Generated Referral / * Outpatient Procedure (Routine) - ClosedSpecialtyDiagnoses / ProceduresReferred By ContactReferred To [facility] Diagnoses Choking, initial encounter Gastroesophageal reflux disease, unspecified whether esophagitis present Helicobacter pylori gastritis Gastroparesis Procedures EGD - THERAPEUTIC, EUS, OR TUBE INTERVENTIONS EGD DILATION GASTRIC/[place] [address] [place] [address] Phone: tel: fax: [facility] [address] [place] [address] Referral IDStatusReasonAppleton City DateExpiration DateVisits RequestedVisits [id number] Auto-Generated Referral Reason for Visit * Outpatient Procedure (Routine) - ClosedSpecialtyDiagnoses / ProceduresReferred By ContactReferred To [facility] Diagnoses Choking, initial encounter Gastroesophageal reflux disease, unspecified whether esophagitis present Helicobacter pylori gastritis Gastroparesis Procedures EGD - THERAPEUTIC, EUS, OR TUBE INTERVENTIONS EGD DILATION GASTRIC/DUODENAL STRICTURE Grayson Peter [place] [id number] [place] [address] Phone: tel: fax: [facility] [address] [place] [address] Referral IDStatusReasonAppleton City DateExpiration DateVisits RequestedVisits [id number] Auto-Generated Referral Encounter Details DateTypeDepartmentCare Team (Latest Contact Info)Ggvjkbmlszw19/04/2025 12:30 PM EST - 02/25/2025 11:59 PM ESTHospital Encounter Ambulatory Surgery [address] [place], [place] [address] [place] [address] [place] [address] [place] [phone] Lindsey Buckley RN Synk, Lacey, APRN.ASSEMBLY LINE DRIVER [address] [place], [place] [id number] Choking, initial encounter [T17.308A] Discharge Disposition: Home Social History Tobacco UseTypesPacks/DayYears UsedDateSmoking Tobacco: NeverSmokeless Tobacco: NeverAlcohol UseStandard Drinks/WeekCommentsYes4 (1 standard drink = 0.6 oz pure alcohol)sociallyPHQ-2AnswerDate RecordedPHQ-2 [id number] RecordedFrequency of Alcohol ConsumptionNot on file02/25/2025Q2: How many drinks containing alcohol do you have on a typical day when you are drinking? Patient does not drink02/25/2025Frequency of Binge DrinkingNot on file02/25/2025 Area Deprivation IndexAnswerDate RecordedNational Score (1-100), lower number is lower yary511110/17/2022State Score (1-10), lower number is lower mxfs214 Data from: https://www.neighborhoodatlas.medicine.[facility].edu/. Last address used for wlpfupusxiy[address] regnantCommentsNoSex and Gender Information ValueDate RecordedSex Assigned at BirthNot on fileLegal TljZvkdxn42/03/2019 9:05 PM EDTGender TtoynhniYowfaz25/15/2022 8:30 AM ESTSexual OrientationNot on file documented as of this encounter Last Filed Vital Signs Vital SignReadingTime TakenCommentsBlood Rgddkxti753/8202/25/2025 1:56 PM EST Uaowp739602/25/2025 1:56 PM ESTTemperature--Respiratory Jgyy585904/27/2024 1:56 PM ESTOxygen Svljsxzkyv41%02/25/2025 1:56 PM ESTInhaled Oxygen Concentration-- Weight--Height--Body Mass Index--documented in this encounter Functional Status documented as of this encounter Medications at Time of Discharge MedicationSigDispense QuantityRefillsLast FilledStart DateEnd Date pantoprazole DR (PROTONIX) 40 mg tablet Take 1 tablet by mouth two times a day before meals. 120 tablet clonazePAM (KLONOPIN) 0.5 mg tablet Take 1 mg by mouth.04/02/2024 cyclobenzaprine (FLEXERIL) 5 mg tablet take 1 tablet by mouth three times a day for 14 days11/27/2024 FARXIGA 10 mg tablet Take 10 mg by mouth once daily. diclofenac, EC, (VOLTAREN) 75 mg EC tablet 1 tab(s) orally 2 times a day for 30 day(s)03/19/2024 doxepin capsule 100 mg take 2 capsules (200 mg) by mouth at bedtime traMADol (ULTRAM) 50 mg tablet Take by mouth.06/29/2022 tiZANidine (ZANAFLEX) 4 mg tablet 10/31/2024 propranolol (INDERAL) 10 mg tablet every 12 hours.09/30/2024 predniSONE (DELTASONE) 10 mg tablet PLEASE SEE ATTACHED FOR DETAILED LYJMCUXNAG03/17/2025 prazosin (MINIPRESS) 2 mg cap Take 2 mg by mouth.12/16/2024 OXcarbazepine (TRILEPTAL) 300 mg tablet Take 300 mg by mouth. ondansetron (ZOFRAN) 4 mg tablet Take 4 mg by mouth every 8 hours as needed for nausea/vomiting.02/28/2023 OLANZapine (ZYPREXA) 2.5 mg tablet 12/30/2024 buPROPion XL (WELLBUTRIN XL) 300 mg 24 hr tablet 300 mg.11/22/2024 cyclobenzaprine (FLEXERIL) 5 mg tablet Indications:pelvic pain/muscle spasmPlace 1 tab per vagina up to TID prn pain/spasm, if no effect may try 2 tabs TID prn. 30 tablet montelukast (SINGULAIR) 10 mg tablet Take 10 [...] capsule Take 4.5 mg by mouth once daily.documented as of this encounter H&P Notes * Grayson Peter MD - 02/25/2025 1:00 PM EST SEDATION HISTORY AND PHYSICAL EXAM SERVICE DATE: 02/25/2025 SERVICE TIME: 1:25 PM Subjective HPI: This is a 34 year old female who presents with dyspepsia PAST ANESTHESIA HISTORY: No history of adverse event PAST MEDICAL HISTORY Diagnosis Date Asthma (HCC) Bipolar disorder (HCC) Diverticulitis 2017 Hypertension IBS (irritable bowel syndrome) Syncope PAST SURGICAL HISTORY Procedure Laterality Date ANKLE SURGERY HX SECTION HX x3 COLONOSCOPY 04/2018 IBS-c COLONOSCOPY SCREENING 2019 EGD DIAGNOSTIC 2022 HYSTERECTOMY HX HYSTEROSCOPY, DIAGNOSTIC (SEPARATE L'SCOPE CHOLECYSTECTOMY 2022 Prior to Admission medications as of 02/25/25 1247 Medication Sig Last Dose Taking doxepin capsule 100 mg take 2 capsules (200 mg) by mouth at bedtime 02/24/2025 Yes prazosin (MINIPRESS) 2 mg cap Take 2 mg by mouth. 02/24/2025 Yes OLANZapine (ZYPREXA) 2.5 mg tablet 02/24/2025 Yes buPROPion XL (WELLBUTRIN XL) 300 mg 24 hr tablet 300 mg. 02/24/2025 Yes montelukast (SINGULAIR) 10 mg tablet Take 10 mg by mouth daily at bedtime. 02/24/2025 Yes fluticasone/umeclidin/vilanter (TRELEGY ELLIPTA INHALATION) Inhale as instructed. 02/24/2025 Yes escitalopram oxalate (LEXAPRO) 20 mg tablet Take 20 mg by mouth every morning. Past Week Yes amphetamine-dextroamphetamine XR (ADDERALL XR) 30 mg capsule Take 30 mg by mouth once daily. 02/24/2025 Yes cariprazine (VRAYLAR) 4.5 mg capsule Take 4.5 mg by mouth once daily. 02/24/2025 Yes clonazePAM (KLONOPIN) 0.5 mg tablet Take 1 mg by mouth. cyclobenzaprine (FLEXERIL) 5 mg tablet take 1 tablet by mouth three times a day for 14 days FARXIGA 10 mg tablet Take 10 mg by mouth once daily. 02/12/2025 diclofenac, EC, (VOLTAREN) 75 mg EC tablet 1 tab(s) orally 2 times a day for 30 day(s) traMADol (ULTRAM) 50 mg tablet Take by mouth. tiZANidine (ZANAFLEX) 4 mg tablet Unknown propranolol (INDERAL) 10 mg tablet every 12 hours. Unknown predniSONE (DELTASONE) 10 mg tablet PLEASE SEE ATTACHED FOR DETAILED DIRECTIONS OXcarbazepine (TRILEPTAL) 300 mg tablet Take 300 mg by mouth. Unknown ondansetron (ZOFRAN) 4 mg tablet Take 4 mg by mouth every 8 hours as needed for nausea/vomiting. Unknown cyclobenzaprine (FLEXERIL) [address] 1 tab per vagina up to TID prn pain/spasm, if no effect may try 2 tabs TID prn. metoprolol succinate ER (TOPROL XL) 25 mg 24 hr tablet Take 1 tablet by mouth once daily. ALPRAZolam (XANAX) 0.5 mg tablet Take 0.25 mg by mouth two times a day. Patient not taking: Reported on 12/30/2024 ALLERGIES Allergen Reactions Iodinated Contrast * Anaphylaxis, Hives, Itching Cat Dander Anaphylaxis Iv Contrast [Iodine] Swelling, Itching Omnipaque 300: Patient experienced itching on her neck and left side of her face. Also, pt complained of tongue feeling itchy and feels like something is stuck in her throat . Patient received diphenhydramine (Benadryl) Omnipaque [Iohexol] Itching Tree Nuts Anaphylaxis Objective PHYSICAL EXAM: The remainder of the physical exam is noncontributory. AIRWAY: Mouth opening greater than 3 fingerbreadths: Yes Neck Full Range of Motion: Yes LUNGS: Lungs clear to auscultation CARDIAC: Regular rhythm,Regular rate ASA Class: ASA Class: Patient with severe systemic disease Assessment & Plan Choking, initial encounter Gastroesophageal reflux disease, unspecified whether esophagitis present Helicobacter pylori gastritis Gastroparesis Provisional Diagnosis/Treatment Plan: upper endoscopy with possible dilation Procedure was discussed with the patient including risks of oversedation, bleeding, and perforation. Patient agreed to proceed. Sedation Goal: Anesthesia SIGNATURE: Grayson Peter MD PATIENT NAME: Belgica Barnett DATE: February 25, 2025 TIME: 1:25 PM documented in this encounter Nursing Notes * Radha Ribera RN - 02/25/2025 1:40 PM EST POST OP LEARNING RESPONSE INSTRUCTION PROVIDED TO: Patient METHOD OF INSTRUCTION: Individual instruction Written instruction/Handouts PATIENT / FAMILY RESPONSE: Information received as demonstrated by interest and questions FOLLOW-UP PLAN: Patient instructed to call with any further issues SUPPLEMENTAL MATERIAL: None REFERRAL (RECOMMENDATION): None Electronically Signed By: Radha Ribera RN In Department: AMBULATORY SURGERY * Elissa Kwok RN - 02/25/2025 12:49 PM EST PRE OP LEARNING ASSESSMENT PROCEDURE/SURGERY: [...] Department: AMBULATORY SURGERY documented in this encounter Plan of Treatment NameTypePriorityAssociated DiagnosesOrder ScheduleEGD - THERAPEUTIC, EUS, OR TUBE INTERVENTIONSEndoscopyRoutine Choking, initial encounter Gastroparesis Esophagitis 1 Occurrences starting 02/25/2025 until 02/25/2026documented as of this encounter Goals GoalPatient Goal TypeAssociated ProblemsRecent ProgressPatient-Stated?Author Blood Pressure < 140/90 Blood Fcvgntiu844/82(02/25/2025 1:56 PM EST)Solo Barclay, MDdocumented as of this encounter Procedures Procedure NamePriorityDate/TimeAssociated DiagnosisCommentsCYTOLOGY NON-SHANKER OUT Lwbyemu85/07/2024 1:32 PM EST Choking, initial encounter Gastroesophageal reflux disease, unspecified whether esophagitis present Helicobacter pylori gastritis Gastroparesis EGD - THERAPEUTIC, EUS, OR TUBE TMJGVNURNUPOUJeymrya02/04/2025 1:26 PM EST Choking, initial encounter Gastroesophageal reflux disease, unspecified whether esophagitis present Helicobacter pylori gastritis Gastroparesis documented in this encounter Results * CYTOLOGY NON-SHANKER OUT (02/25/2025 1:32 PM EST)ComponentValueRef RangeTest Method Analysis TimePerformed AtPathologist SignatureCase ReportMedical Cytology Report ? Case: [id number] ? Authorizing Provider: ??Grayson Peter MD ? Collected: ? 02/25/2025 01:32 PM ? Ordering Location: ? Ambulatory Surgery ? Received: ?02/26/2025 03:51AM ? Pathologist: ? George Ware MD ? Specimen: ?Esophagus, r/o melissa ? 02/27/2025 4:03 PM [facility] MAIN LABFINAL DIAGNOSISA - Esophagus, [place] - r/o melissa Negative for malignant cells. No fungal elements seen. 02/27/2025 4:03 PM [facility] LAB at 1603 ESTGross DescriptionA. Esophagus 20 cc clear colorless fluid with brush with particles. ThinPrep prepared. 02/27/2025 4:03 PM [facility] LABClinical RbwkahnG33.308A - Choking, initial encounter [ICD-10-CM] K21.9 - Gastroesophageal reflux disease, unspecified whether esophagitis present [ICD-10-CM] K29.70, B96.81 - Helicobacter pylori gastritis [ICD-10-CM] K31.84 - Gastroparesis [ICD-10-CM] 02/27/2025 4:03 PM [facility] LABPerforming LabTechnical component, bow maker gift wrapping screening performed at: [facility], [address] [place] [address] CLIA: [id number] Diagnostic interpretation performed at: [facility], [address] [place], [place] [id number] CLIA# [id number] Acid Concentrator: Alhaji Galvez MD 02/27/2025 4:03 PM [facility] LABDisclaimerLaboratory Developed Test (LDT) Disclaimer: Performance characteristics of immunohistochemical, immunofluorescent, and chromogenic in-situ hybridization tests have been determined by the performing laboratory within the [facility] Department of Pathology and Laboratory Medicine ([facility], [facility], [facility], [facility], [facility], [facility], or [facility]) in a manner consistent with CLIA requirements. One or more of these tests may not have been cleared or approved by the FDA. The [facility] Department of Pathology and Laboratory Medicineis regulated under CLIA as qualified to perform high-complexity testing. These tests are used for clinical purposes. These should not be regarded as investigational or for research. Positive and negative controls stain appropriately.02/27/2025 4:03 PM EST [facility] LABSpecimen (Source)Anatomical Location / Laterality Collection Method / VolumeCollection TimeReceived TimeBrushSPECIMEN FROM ESOPHAGUS / Nrryjcc7102/25/2025 1:32 PM EST02/26/2025 3:51 AM EST Narrative Authorizing ProviderResult TypeResult StatusNokerry Peter MDCYTOLOGYFinal Result Performing OrganizationAddressCity/State/ZIP CodePhone Number [facility] [address] * EGD - THERAPEUTIC, EUS, OR TUBE INTERVENTIONS (02/25/2025 1:26 PM EST) Anatomical RegionLateralityModalityOtherSpecimen (Source)Anatomical Location / LateralityCollection Method / VolumeCollection TimeReceived Time02/25/2025 1:26 PM EST Narrative 02/25/2025 1:43 PM EST [facility] Gastroenterology Gastrointestinal Endoscopy Patient Name: Belgica Barnett Procedure Date: 02/25/2025 1:26 PM Date of : 1990 Admit Type: Outpatient Age: 34 Room: [facility] 2 Gender: Female Note Status: Finalized Attending MD: Grayson Peter MD, [id number] Procedure: ? Upper GI endoscopy Indications: ? [...] by the physician, ? the nurse, the field evidence technician and the dental laboratory technician in ? the procedure room. Mental [...] Procedure Code(s): ? --- Professional --- ? 05884, Esophagogastroduodenoscopy, flexible, ? transoral; diagnostic, including collection of ? specimen(s) by brushing or washing, when performed ? (separate procedure) Diagnosis Code(s): ? --- Professional --- ? K21.00, Gastro-esophageal reflux disease with ? esophagitis, without bleeding ? K31.84, Gastroparesis ? R13.10, Dysphagia, unspecified CPT copyright 2020 [employer]. All rights reserved. The codes documented in this report are preliminary and upon precision structural metal fitter review may be revised to meet current compliance requirements. Scope In: 1:29:08 PM Scope Out: 1:31:54 PM Grayson Peter MD 02/25/2025 1:41:26 PM This report has been signed electronically by Grayson Peter MD Number of Addenda: 0 Note Initiated On: 02/25/2025 1:26 PM Estimated Blood Loss: ? Estimated blood loss: none. Authorizing ProviderResult TypeResult StatusNoma Rome MDDIGESTIVE DISEASEFinal Result documented in this encounter Visit Diagnoses Diagnosis Esophagitis- Primary Esophagitis, unspecified Choking, initial encounter Gastroesophageal reflux disease, unspecified whether esophagitis present Helicobacter pylori gastritis Helicobacter pylori (H. pylori) Gastroparesis documented in this encounter Care Teams Team MemberRelationshipSpecialtyStart DateEnd Date Emerald Sanchez MD [address] [facility] [address] [place] [address] PCP - GeneralFamily Ssncognc88/4/19 Deena Osorio APRN [address] [facility] [address] [place] [address] ReferringFamily Ncvcewhv57/11/24 Darwin Starr DO [address] [place] [address] [place] [address] ReferringOb/Gyn07/02/24documented as of this encounter
--- OUTSIDE RECORDS SUMMARY | 2025-02-25 13:25 | XMS_ITS | Encounter Summary ---
Author Organization [facility] Address [address] [place] [address] Care Team Providers Care Fresh Work Wrapper Layer Name Role Phone Emerald Sanchez MD Primary Care Provider [phone] Deena Osorio VOCATIONAL REHABILITATION CONSULTANT Unavailable [phone] Darwin Starr DO Unavailable [phone] Source Comments In the event this information is protected by the Federal Confidentiality of Alcohol and Drug AbusePatient Records regulations: The Federal rules restrict any use of the information to criminally investigate or prosecute any alcohol or drug abuse patient.[facility] Encounter Details DateTypeDepartmentCare Team (Latest Contact Info)Mbbcuubsjee60/04/2025 1:25 PM ESTAnesthesia Event Ambulatory Surgery [address] [place] [address] Jenna Merrill APRN.TELECOMMUNICATION EQUIPMENT REPAIRER [address] [phone] Marissa Gomes APRN.TELECOMMUNICATION EQUIPMENT REPAIRER [address] [place] [address] Anesthesia Record Procedure NameResponsible AnesthesiologistAnesthesia Start TimeAnesthesia Stop TimeEGD - THERAPEUTIC, EUS, OR TUBE INTERVENTIONSSyJenna brennan APRN.CRNA02/25/25 24654004/27/24 5220SntrKqbqPpnxoThclaeb37/04/003126751098Rj StartI have re- evaluated the patient immediately prior to induction.1325Anesthesia Lwdag3221 Handoff to RNI completed my handoff to the receiving nurse during which we: 1. Identified the patient 2. Identified the responsible provider 3. Reviewed the pertinent medical history 4. Discussed the surgical course 5. Reviewed intra-op anesthesia management and issues during anesthesia 6. Set expectations for post- procedure period 7. Allowed opportunity for questions and acknowledgement of understanding.1335An Stop* NameTotallidocaine (PF) 2%100 mgpropofol yfmerfblz147 mgNaCl 0.9%250 mL * Agents Name MAC Case O2 Flow Rate * Blood No blood administrations on file. WylkOftscdmBgjtetnwoVefffhhRXX80/04/25; 1258; [facility]; Right; Hand; 22 Gauge; 02/25/25; 41200604/27/24 1258 by Elissa Kwok RN02/25/25 1349 by Radha Ribera, JWdocumented in this encounter Social History Tobacco UseTypesPacks/DayYears UsedDateSmoking Tobacco: NeverSmokeless Tobacco: NeverAlcohol UseStandard Drinks/WeekCommentsYes4 (1 standard drink = 0.6 oz pure alcohol)sociallyPHQ-2AnswerDate RecordedPHQ-2 nluzu004UDIT-CAnswerDate RecordedFrequency of Alcohol ConsumptionNot on file02/25/2025Q2: How many drinks containing alcohol do you have on a typical day when you are drinking?Patient does not drink02/25/2025Frequency of Binge DrinkingNot on file02/25/2025rea Deprivation IndexAnswerDate RecordedNational Score (1-100), lower number is lower eqyv229310/17/2022State Score (1-10), lower number is lower uoxy705 Data from: https://www.neighborhoodatlas.medicine.[facility].edu/. Last address used for apd[address]kq[address]74 [address]/17/2022CommentsNoSex and Gender Information ValueDate RecordedSex Assigned at BirthNot on fileLegal OtcDikjnp07/03/2019 9:05 PM EDTGender AdkphwqhWdfaks86/15/2022 8:30 AM ESTSexual OrientationNot on file documented as of this encounter Last Filed Vital Signs Vital SignReadingTime TakenCommentsBlood Nkdawbgy180/6311 1:33 PM EST Ozrar277202/25/2025 1:33 PM ESTTemperature--Respiratory Lqof902404/27/2024 1:33 PM ESTOxygen Bxetvgcuqk89%02/25/2025 1:33 PM ESTInhaled Oxygen Concentration-- Weight--Height--Body Mass Index--documented in this encounter Functional Status documented as of this encounter Procedure Notes * Jenna Merrill APRN.CRNA - 02/25/2025 1:52 PM EST POST ANESTHESIA EVALUATION NOTE : 1990 Procedure Summary Date: 02/25/25 Room / Location: Ambulatory Surgery Anesthesia Start: 1325 Anesthesia Stop: 1335 Procedure: EGD - THERAPEUTIC, EUS, OR TUBE INTERVENTIONS Diagnosis: Choking, initial encounter Gastroesophageal reflux disease, unspecified whether esophagitis present Helicobacter pylori gastritis Gastroparesis (Dysphagia) Scheduled Providers: Grayson Peter MD; Lindsey Buckley RN; Jenna Merrill APRN.CRNA ResponsibleProvider: Jenna Merrill APRN.CRNA Anesthesia Type: MAC ASA Status: 2 Anesthesia Type: MAC Last Vitals Vitals Value Taken Time BP 124/77 02/25/25 13:50 Temp 02/25/25 13:52 Pulse 87 02/25/25 13:50 Resp 13 02/25/25 13:50 SpO2 98 % 02/25/25 13:50 Vitals shown include unfiled device data. Post [...] of care. Anesthesia Observations No Documentation SIGNATURE: Jenna Merrill APRN.CRNA PATIENT NAME: Belgica Barnett DATE: February 25, 2025 TIME: 1:52 PM CSN: [id number] * Jenna Merrill APRN.TELECOMMUNICATION EQUIPMENT REPAIRER - 02/25/2025 1:24 PM EST ANESTHESIOLOGY DAY OF SURGERY NOTE : 1990 Procedure Information Date/Time: 02/25/25 1300 Scheduled providers: Grayson Peter MD; Lindsey Buckley RN; Jenna Merrill APRN.CRNA Procedure: EGD - THERAPEUTIC, EUS, OR TUBE INTERVENTIONS Location: Ambulatory Surgery Estimated body mass index is 37.49 kg/m?? as calculated from the following: Height as of 08/13/24: 160 cm (5' 3 ). Weight as of 02/17/25: 96 kg (211 lb 10.3 oz). Most recent hematocrit and potassium results: Hematocrit 46.1 04/26/2024 Potassium 3.6 07/10/2024 Relevant Problems No relevant active problems Asthma, PreDM, Bipolar, ENGLISH, Vapes. Saw cards in July for syncope - ZIO showed 2 short runs VT. Started on Metoprolol. Exertional so pt manages. On I - PHYSICAL EVALUATION AIRWAY Patient intubated: No. Tracheostomy tube not present Mallampati: II. TM distance: >3 FB. Neck ROM: full ROM without neurological symptoms. Mouth opening: >3 FB. Short neck: no. Thick neck: no Glaser present: no DENTAL Dental findings: teeth intact. II - ANESTHESIA PLAN ASA Score: 2 Anesthetic Plan: MAC The patient is not a current smoker. NPO Status: adequate Monitoring Plan Monitoring plan: standard ASA. Post [...] suggest increased risk of complications or contraindication toplanned procedure: none. Vitals Value Taken Time BP 118/71 02/25/25 12:50 Pulse 88 02/25/25 12:50 Resp 16 02/25/25 12:50 Temp SpO2 97 % 02/25/25 12:50 Outpatient Medications as of 02/25/2025 Medication Sig doxepin capsule 100 mg take 2 capsules (200 mg) by mouth at bedtime prazosin (MINIPRESS) 2 mg cap Take 2 mg by mouth. OLANZapine (ZYPREXA) 2.5 mg tablet buPROPion XL (WELLBUTRIN XL) 300 mg 24 hr tablet 300 mg. montelukast (SINGULAIR) 10 mg tablet Take 10 mg by mouth daily at bedtime. fluticasone/umeclidin/vilanter (TRELEGY ELLIPTA INHALATION) Inhale as instructed. escitalopram oxalate (LEXAPRO) 20 mg tablet Take 20 mg by mouth every morning. amphetamine-dextroamphetamine XR (ADDERALL XR) 30 mg capsule Take 30 mg by mouth once daily. cariprazine (VRAYLAR) 4.5 mg capsule Take 4.5 mg by mouth once daily. clonazePAM (KLONOPIN) 0.5 mg tablet Take 1 [...] every 8 hours as needed for nausea/vomiting. cyclobenzaprine (FLEXERIL) [address] 1 [...] Reported on 12/30/2024) No current facility-administered medications on file as of 02/25/2025. I have interviewed and examined the patient. I have reviewed the medical record and/or the pre-anesthesia evaluation, pertinent labs, and test results. This contains updated information obtained within 48 hours of Surgery/Procedure. SIGNATURE: Jenna Merrill APRN.CRNA PATIENT NAME: Belgica Barnett DATE: February 25, 2025 TIME: 1:24 PM CSN: [id number] documented in this encounter Plan of Treatment Not on file documented as of this encounter Goals GoalPatient Goal TypeAssociated ProblemsRecent ProgressPatient-Stated?Author Blood Pressure < 140/90 Blood Lxlrptqn669/82(02/25/2025 1:56 PM EST)Solo Barclay, MDdocumented as of this encounter Visit Diagnoses Not on filedocumented in this encounter Administered Medications Medication OrderMAR ActionAction DateDoseRateSite lidocaine HCl (PF) 20 mg/mL (2 %) injection INTRAVENOUS, NEEDED, Starting on Mon02/25/25 at 1328, Until Mon02/25/25 at 1335, Anesthesia Intraprocedure Given02/25/2025 1:28 PM IEW942 mg NaCl 0.9% iv infusion INTRAVENOUS, X (ONE-STEP ONLY) CONTINUOUS PRN, Starting on Mon02/25/25 at 1325, Until Mon02/25/25 at 1335, Anesthesia Intraprocedure New Bag/Syringe/Maitit8902/25/2025 1:25 PM EST propofol injection (DIPRIVAN) INTRAVENOUS, NEEDED, Starting on Mon02/25/25 at 1328, Until Mon02/25/25 at 1335, Anesthesia Intraprocedure Given02/25/2025 1:31 PM EST50 myXfcbh9502/25/2025 1:30 PM EST50 dgJthuu2002/25/2025 1:29 PM EST50 mgdocumented in this encounter Care Teams Team MemberRelationshipSpecialtyStart DateEnd Date Emerald Sanchez MD [address] [facility] [address] [place] [address] PCP - GeneralFamily Fdkfehsh75/4/19 Deena Osorio APRN [address] [facility] [address] [place] [address] ReferringFamily Ygczozen56/11/24 Darwin Starr DO [address] [place] [address] [place] [address] ReferringOb/Gyn07/02/24documented as of this encounter
--- OUTSIDE RECORDS SUMMARY | 2025-02-27 15:00 | XMS_ITS | Encounter Summary ---
Author Organization [facility] Address [address] [place] [address] Care Team Providers Care In Store Marketing Associate Name Role Phone Emerald Sanchez MD Unavailable Emerald Sanchez MD Primary Care Provider [phone] Reason for Visit * ReasonCommentsGynecologic Exam Encounter Details DateTypeDepartmentCare Team (Latest Contact Info)Lcuakxrfxnz99/06/2025 3:00 PM ESTProcedure Visit [facility] [address] [place] [phone] Ayleen Krishnamurthy PA [address] [place] [phone] Well woman exam with routine gynecological exam; H/O: hysterectomy; Abnormal urine odor; BV (bacterial vaginosis) Social History Tobacco UseTypesPacks/DayYears UsedDateSmoking Tobacco: Every DayCigarettes Smokeless Tobacco: NeverAlcohol UseStandard Drinks/WeekCommentsYes2 (1 standard [...] relatives?Once a week05/09/2024How often do you attend faith or caodaism services?Never05/09/2024Do you belong to any clubs or organizations such as faith groups, unions, fraThink Realtime or athletic groups, or school groups?Yes05/09/2024How often do you attend meetings of the clubs or organizations you belong to?Never05/09/2024re you , , , , never , or living with a partner?Xihcmbs6405/09/2024 AUDIT-CAnswerDate RecordedQ1: How often do you have a drink containing alcohol? 2-4 times a month05/09/2024Q2: How many drinks containing alcohol do you have on a typical day when you are drinking?1 or Q3: How often do you have six or more drinks on one occasion?Less than qvkifib5305/09/2024Overall Financial Resource Strain (CARDIA)AnswerDate RecordedHow hard is it for you to pay for the very basics like food, housing, medical care, and heating?Not hard at all 05/09/2024PHQ-2AnswerDate RecordedPatient Health Questionnaire-2 Score4 01/06/2025[facility] [place] [facility] - Occupational Stress QuestionnaireAnswerDate [...] steady place to sleep or slept in [facility] (including now)?No04/18/2023Housing Stability Vital SignAnswerDate RecordedIn the last 12 months, was there a time when you were not able to pay the mortgage or rent on time?No05/09/2024In the past 12 months, how many times have you moved where you were living?t any time in the past 12 months, were you homeless or living in a chcf (including now)?No 05/09/2024CommentsNoSex and Gender InformationValueDate RecordedSex Assigned at BirthNot on fileLegal OeiCbbdhm21/15/2023 7:29 PM EDTGender Identity Not on fileSexual OrientationNot on filedocumented as of this encounter Last Filed Vital Signs Vital SignReadingTime TakenCommentsBlood Kttyusth764/7402/27/2025 3:20 PM EST Pulse--Temperature--Respiratory Rate--Oxygen Saturation--Inhaled Oxygen Concentration--Sjxelj65.3 kg (210 lb)02/27/2025 3:20 PM CEYWvifda649.5 cm (5' 2 )02/27/2025 3:20 PM ESTBody Mass Index38.41104/29/2024 3:20 PM ESTdocumented in this encounter Plan of Treatment DateTypeDepartmentCare Team (Latest Contact Info)Vrplsnecmbz43/10/2025 4:30 PM ESTClinical Support [facility] [address] [facility] [address] [place] [address] Milton Duvall, DPM FACFAS [address] [place] [address] 03/14/2025 11:40 AM ESTOffice Visit [facility] [address] [facility] [address] [place] [address] Jatin Cabrera MD [address] [facility] [address] [address] 03/18/2025 9:00 AM ESTOffice Visit [facility] [address] [facility] [address] [place] [phone] Emerald Sanchez MD [address] [facility] [address] [place] [address] NameTypePriorityAssociated DiagnosesOrder SchedulePap SmearPathology and CytologyRoutine Well woman exam with routine gynecological exam Ordered: 02/27/2025HPV DNA probe, amplifiedMicrobiologyRoutine Well woman exam with routine gynecological exam Ordered: 02/27/2025SURESWAB(R) ADVANCED VAGINITIS PLUS, TMAPathology and CytologyRoutine BV (bacterial vaginosis) Ordered: 02/27/2025HLAMYDIA TRACHOMATIS (GENITO/STI)LabRoutine BV (bacterial vaginosis) Ordered: 02/27/2025Neisseria gonorrhea DNA probe, directLabRoutine BV (bacterial vaginosis) Ordered: 02/27/2025documented as of this encounter Goals GoalPatient Goal TypeAssociated ProblemsRecent ProgressPatient-Stated?Author Help patient manage antidepressant medication Care PlanPatient on antidepressant monitoring Emerald Rain MD Baseline PHQ-9 Care PlanBaseline PHQ-9Emerald Underwood, MDdocumented as of this encounter Procedures Procedure NamePriorityDate/TimeAssociated DiagnosisCommentsPOCT URINALYSIS HLYBNCVUPtnxgiy72/06/2025 3:22 PM EST Abnormal urine odor documented in this encounter Results * (ABNORMAL) POCT urinalysis dipstick manually resulted (02/27/2025 3:22 PM EST) ComponentValueRef RangeTest MethodAnalysis TimePerformed AtPathologist SignatureColor, UAYellowClarity, UACloudyGlucose, UA2+Negative - 2000(110) ++++ mg/dLBilirubin, UANegativeNegative - 4(70) +++ mg/dLKetones, UANegative Negative - 160(16) ++++ mg/dLSpec Grav, UA1.0151 - 1.03Blood, UANegative Negative - 50 Edgard/mcLpH, UA6.05 - 9Protein, UANegativeNegative - 2000(20) ++++ mg/dLUrobilinogen, UA1.00.2 - 12 mg/dLLeukocytes, UA1+Negative - 500+++ Giana/mcLNitrite, UANegativeNegative - PositiveSpecimen (Source)Anatomical Location / LateralityCollection Method / VolumeCollection TimeReceived Time Urine02/27/2025 3:22 PM EST Narrative Authorizing ProviderResult TypeResult StatusBon Secours [facility] TEST ENTER/EDIT ORDERABLESFinal Result documented in this encounter Visit Diagnoses Diagnosis Well woman exam with routine gynecological exam Routine gynecological examination H/O: hysterectomy Acquired absence of both cervix and uterus Abnormal urine odor Other nonspecific finding on examination of urine BV (bacterial vaginosis) Unspecified vaginitis and vulvovaginitis documented in this encounter Additional Health Concerns Active ProblemsNoted DateDiagnosed DatePatient on antidepressant monitoring plan 4Baseline PHQ-904AssessmentNoted TimePHQ-9 Depression Total Score: 13001/06/2025 10:55 AM EDTdocumented as of this encounter Care Teams Team MemberRelationshipSpecialtyStart DateEnd Date Emerald Sanchez MD [address] [facility] [address] [place], [place] [phone] PCP - Medical [place] [employer]10/23/1911 Emerald Sanchez MD [address] [facility] [address] [place] [address] PCP - GeneralFami Medicine08/30/22documented as of this encounter
--- OUTSIDE RECORDS SUMMARY | 2025-02-27 19:12 | XMS_ITS | Encounter Summary ---
Author Organization [facility] Address [address] [place] [address] Care Team Providers Care Saloon Keeper Name Role Phone Emerald Hagen MD Unavailable Emerald Hagen MD Primary Care Provider [phone] Encounter Details DateTypeDepartmentCare Team (Latest Contact Info)Esgtxdavryj12/10/2025linisync Result Encounter [facility] Unsolicited Sandy Hammond, [place] [address] [facility] [address] [place] [address] Social History Tobacco UseTypesPacks/DayYears UsedDateSmoking Tobacco: FormerSmokeless Tobacco: NeverAlcohol UseStandard Drinks/WeekCommentsYes2 (1 standard drink [...] otherwise physically hurt by your partner or ex-partner?No04/18/2023Within the last year, have you been raped or forced to have any kind of sexual activity by your partner or ex-partner?No04/18/2023Social Connection and Isolation Panel AnswerDate RecordedIn a typical week, how many times do you talk on the phone with family, friends, or neighbors?Twice a week05/09/2024How often do you get together with friends or relatives?Once a week05/09/2024How often do you attend mu-ism or orthodox services?Never05/09/2024Do you belong to any clubs or organizations such as mu-ism groups, unions, fraternal or athletic groups, or school groups?Yes05/09/2024How often do you attend meetings of the clubs or organizations you belong to?Never05/09/2024re you , , , , never , or living with a partner?Tumdbac4305/09/2024UDIT-C AnswerDate RecordedQ1: How often do you have a drink containing alcohol?2-4 times a month05/09/2024Q2: How many drinks containing alcohol do you have on a typical day when you are drinking?1 or Q3: How often do you have six or more drinks on one occasion?Less than gnjukhg4405/09/2024Overall Financial Resource Strain (CARDIA)AnswerDate RecordedHow hard is it for you to pay for the very basics like food, housing, medical care, and heating?Not hard at all 05/09/2024PHQ-2AnswerDate RecordedPatient Health Questionnaire-2 Score4 01/06/2025[facility] - Occupational Stress QuestionnaireAnswerDate [...] homeless or living in a half-way (including now)?No 05/09/2024CommentsNoSex and Gender InformationValueDate RecordedSex Assigned at BirthNot on fileLegal ZyaYftbbu79/15/2023 7:29 PM EDTGender Identity Not on fileSexual OrientationNot on filedocumented as of this encounter Functional Status * AUDIT-C ScoreAnswerDate of KhbplwdkkpBggrmx922/16/2025 9:30 AM Jacky Generic * Q1: How often do you have a drink containing alcohol?AnswerDate of Assessment Author2-4 times a month05/09/2024 9:30 AM Jacky Generic * Q2: How many drinks containing alcohol do you have on a typical day when you are drinking?AnswerDate of AssessmentAuthor1 or 9:30 AM VICTOR MANUEL Rivera Generic * Q3: How often do you have six or more drinks on one occasion?AnswerDate of AssessmentAuthorLess than sgqasda6605/09/2024 9:30 AM Jacky Generic * Over the past 2 weeks, how often have you been bothered by any of the following problems?QuestionAnswerDate of AssessmentAuthorLittle interest or pleasure in doing thingsMore than half the days01/06/2025 10:55 AM Alex CHAVIRAeling down, depressed, or hopelessMore than half the days01/06/2025 10:55 AM Herbert CHAVIRA Health Questionnaire-2 Cpdzm568 10:55 AM BALDO CHAVIRA * QuestionAnswerDate of [...] have let yourself or your family downSeveral days01/06/2025 10:55 AM Scott RUIZ concentrating on things, such as reading the newspaper or watching televisionMore than half the days01/06/2025 10:55 AM BALDO CHAVIRA Moving or speaking so slowly that other people could have noticed? Or the opposite - being so fidgety or restless that you have been moving around a lot more than usual.Not at all01/06/2025 10:55 AM Demetri CHAVIRAoughthuseyin that you would be better off or hurting yourself in some wayNot at all01/06/2025 10:55 AM Lacy CHAVIRA Health Questionnaire-9 Xpjzg0408/15/2025 10:55 AM BALDO CHAVIRA * If you checked off any problems on this questionnaire so far,QuestionAnswer Date of AssessmentAuthorHow difficult have these problems made it for you to do your work, take care of things at home, or get along with other people?Very cbovjvlkj22/15/2025 10:55 AM BALDO CHAVIRA documented as of this encounter Plan of Treatment DateTypeDepartmentCare Team (Latest Contact Info)Gnjanvbszxz52/10/2025 4:30 PM ESTClinical Support [facility] [address] [place] [address] Milton Duvall, DPM FACFAS [address] [facility] [place] [address] 03/14/2025 11:40 AM ESTOffice Visit [facility] [address] [facility] [address] [place] [address] Jatin Cabrera MD [address] [facility] [address] [id number] 03/18/2025 9:00 AM ESTOffice Visit [facility] [place] [facility] [address] [facility] [address] [place] [id number] Emerald Hagen MD [address] [facility] [address] [place] [address] documented as of this encounter Goals GoalPatient Goal TypeAssociated ProblemsRecent ProgressPatient-Stated?Author Help patient manage antidepressant medication Care PlanPatient on antidepressant monitoring Emerald Rain MD Baseline PHQ-9 Care PlanBaseline PHQ-9Emerald Underwood MDdocumented as of this encounter Procedures Procedure NamePriorityDate/TimeAssociated DiagnosisCommentsMR CERVICAL SPINE WO JQGZFWKL90/10/2025 4:01 PM EST documented in this encounter Results * MR cervical spine wo contrast (05/03/2024 4:01 PM EST)Anatomical Region LateralityModalitySpine, C-spineMagnetic ResonanceSpecimen (Source)Anatomical Location / LateralityCollection Method / VolumeCollection TimeReceived Time 05/03/2024 4:01 PM EST Narrative 05/03/2024 4:04 PM EST [facility] [place] [facility] ?[address] ? [place] [address] ? Magnetic Resonance Report ? Signed ? Patient: MEREDITH,ORION A ?MR#: [id number] ?? : 1990 ?Acct:[id number] ?? Age/Sex: 33 / F ?ADM Date: /10/25 ?? Loc: MRI ? Attending Dr: SANDY HAMMOND ? Ordering Physician: SANDY HAMMOND ?? Date of Service: 05/03/24 ?? Procedure(s): MR cervical spine wo con ?? Accession Number(s): [id number] ? cc: EMERALD HAGEN ; SANDY HAMMOND ? [facility] ? [address] ? [place] [address] ? Patient Name: ?? ORION Ele[place] BARNETT ? MRN: [facility]:[id number] ? date: 1990 ?Sex: F ?? Assigned Patient Location: MRI ?? Current Patient Location: MRI ?? Accession/Order Number: [id number] ?? Exam Date: 05/03/2024 ??14:00 ?Report Date: 05/03/2024 ??16:01 ? At the request of: ?? SANDY HAMMOND ? Procedure: ??MR cervical spine wo con ? EXAMINATION: MR cervical spine wo con ? HISTORY: Cervical Radiculopathy ? COMPARISON: No relevant comparison available. ? TECHNIQUE: A variety of imaging planes and parameters were utilized for ?? visualization of suspected pathology without and/or with intravenous Dotarem ?? contrast based on examination type. ? FINDINGS: ?? CRANIOCERVICAL AREA: Normal foramen magnum with no Chiari malformation. ?? PARASPINAL AREA: Normal with no visible mass. ?? BONES: No fracture, pars defect, or osseous lesion. ?? CORD: Normal caliber, contour, and signal intensity. ? CERVICAL DISC LEVELS: ?? C2-C3: Early degenerative disc disease is present without focal protrusion or ?? neural impingement. ?? C3-C4: Mild diffuse disc bulging without disc height reduction. Mild central ?? canal and bilateral foramen narrowing. No significant facet arthropathy. ?? C4-C5: Mild diffuse disc bulging and disc height reduction. Mild central canal ? and bilateral foramen narrowing. No significant facet arthropathy. ?? C5-C6: Mild diffuse disc bulging and disc height reduction. Mild central canal ? and bilateral foramen narrowing. No significant facet arthropathy. ?? C6-C7: Mild diffuse disc bulging and disc height reduction. Mild central canal ? and bilateral foramen narrowing. No significant facet arthropathy. ?? C7-T1:. Mild diffuse disc bulging and disc height reduction. Mild central ?? canal ?? and bilateral foramen narrowing. No significant facet arthropathy. ? MR/MR cervical spine wo con ?? IMPRESSION: ? 1. Multilevel mild degenerative disc disease resulting in mild foramen and ?? mild ?? central canal narrowing. No specific levels to account for patient's symptoms. ? Electronically authenticated by: KEEGAN ??ANTHONY ?? Date: 05/03/2024 ??16:01 ? Dictated By: ?Keegan Bruno M.D. ? Signed By: ?05/03/24 1604 ? DD/ 1601 ? TD/TT: ? Hat Stock Laminating Machine Operator: Procedure Note Radiology, Radiologist, MD - 05/03/2024 [place] [address] Magnetic Resonance Report Signed Patient: ORION BARNETT [facility]#: [id number] : 1990Acct:[id number] Age/Sex: 33 / FADM Date: 05/03/24 Loc: MRI Attending Dr: SANDY HAMMOND Ordering Physician: SANDY HAMMOND Date of Service: 05/03/24 Procedure(s): MR cervical spine wo con Accession Number(s): [id number] cc: EMERALD HAGEN ; SANDY HAMMOND [address] [address] Patient Name: ORION BARNETT MRN: [id number] date: 1990 Sex: F Assigned Patient Location: MRI Current Patient Location: MRI Accession/Order Number: [id number] Exam Date: 05/03/2024 14:00 Report Date: 05/03/2024 [...] M.D. Signed By:05/03/24 1604 DD/ 1601 TD/TT: Hat Stock Laminating Machine Operator: Authorizing ProviderResult TypeResult StatusSandy Bob Hemonofre PAIMG MRI PROCEDURES Final Result documented in this encounter Visit Diagnoses Not on filedocumented in this encounter Additional Health Concerns Active ProblemsNoted DateDiagnosed DatePatient on antidepressant monitoring plan 4Baseline PHQ-90/4documented as of this encounter Care Teams Team MemberRelationshipSpecialtyStart DateEnd Date Emerald Hagen MD [address] [address] PCP - Medical [place] [employer]/ Emerald Hagen MD [address] [place] [address] [place] [address] PCP - GeneralFamily Medicine08/30/22documented as of this encounter
--- OUTSIDE RECORDS SUMMARY | 2025-02-27 19:13 | XMS_ITS | Patient Health Record ---
Author Organization [facility] Address [address] [place] [address] Care Team Providers Care Public Relations Manager Name Role Phone Keegan Trujillo Unavailable [phone] Results Component Value Reference Range Notes SCC- ANKLE 3 VIEW RIGHT 7361 0 Reviewed date:04/30/2024 10:39:15 AM Interpretation: Performing Lab: Notes/Report: MRI : Ankle W/[place] ht - [address] Reviewed date:06/26/2024 09:07:42 AM Interpretation: Performing Lab: Notes/Report: Reason For Referral Reason APPROVED [facility]....... PLEASE OBTAIN AUTHORIZATION FOR RIGHT ANKLE MRI Diagnosis 1 Sprain of anterior t alofibular ligament of right ankle, initial encounter (S93.336M) Referral Organization [facility] Referring Provider First Name Keegan Referring Provider Last Name Ronnie Referring Provider Speciality Orthopedic Surgery Referred Organization [facility] kylie Referred Address [place], [place], Procedure 1 MRI Joint Lower Ext w/o Dye ([address]224) General Notes Marisel Patterson 2023 07:03:26 AM > pending on [employer]. Service Order:[id number], Ayleen Mata 03/05/2024 10:20:23 AM >APPROVAL LETTER IN CHART, Marisel Patterson 03/05/2024 12:56:10 PM > APPROVED Auth #[id number], Valid 03/05/2024 - 04/19/2024, auth scanned in, faxed to Joana Mancuso Monica 03/06/2024 07:52:35 AM > FAXED ORDER Referral Priority Urgent Medications Medication SIG (Take, Route, Frequency, Duration) Notes Start Date End Date Status diclofenac sodium 75 mg 1 tab(s) orally 2 times a day for 30 day(s) 4ActiveXanaxActiveAdderallActivebaclofenActiveVraylarActive Social History Tobacco Use: Social History Observation Description Date Details (start date - stop date) Never Smoker NA - NA AUDIT-C (Standard) Question Answer Notes Did you have a drink containing alcohol in the p ast year? No Ckshue2HunondfrrahrgwUeuppopzXhrkgbw Control (Standard) Question Answer Notes Tobacco use: Nonsmoker Problems Problem Type SNOMED Code ICD Code Onset Dates Problem Status W/U Status Risk Notes Problem [id number] Sprain of ante rior talofibular ligament of right ankle, initial encounter (S93.491A) Activeconfirmed Vital Signs Height 5'2 in 03/04/2024 Netzfh656 lbs105/04/2023BMI33.6503/04/2024 Encounters Encounter Location Date Provider Diagnosis [facility] [address] [facility] [address] [place] [address] [place] [address] 03/04/2024 Keegan Trujillo Sprain of other ligament of right ankle, subsequent encounter S93.491D [facility] [place] [address] [place] [address] 03/18/2024 Keegan Ronnie Assessments Encounter Date Diagnosis (ICD Code) Assessment Notes Treatment Notes Treatment Clinical Notes Section Notes 03/04/2024 Sprain of other liga ment of right ankle, subsequent encounter (ICD-10 - S93.491D) 03/04/2024Other Given her persistent symptoms despite rest, immobilization, nonweightbearing, anti-inflammatories and physical therapy I recommended an MRI [...] Insured Coverage Start Date Coverage End Date [facility] [address] [place] [address] [id number] Vanesa HARPER - patient is the insured
--- OUTSIDE RECORDS SUMMARY | 2025-02-27 19:13 | XMS_ITS | Clinical Summary ---
Author Organization [facility] Address [address] [place] [address] Care Team Providers Care Precision Lens Polisher Name Role Phone Emerald Sanchez MD Primary Care Provider [phone]- [phone] Deena Osorio WEFT STRAIGHTENER Unavailable [phone] Darwin Starr DO Unavailable [phone] Allergies Active AllergyReactionsCriticalityNoted DateCommentsCat DanderAnaphylaxis 07/10/2024Iodinated Contrast MediaAnaphylaxis,Hives,DaupxvdXpvy58/20/2019Iodine Swelling,Ekvmsfm3404/11/2019 Omnipaque 300: Patient experienced itching on her neck and left side of her face. Also, pt complained of tongue feeling itchy and feels like something is stuck in her throat . Patient received diphenhydramine (Benadryl) IcpdbfoSdemvrp11/20/2019Tree RmxyPzczmrwhisl70/19/2025 Medications MedicationSigDispense QuantityRefillsLast FilledStart DateEnd DateStatus ALPRAZolam (XANAX) 0.5 mg tablet Take 0.25 mg by mouth two times a day.Active cariprazine (VRAYLAR) 4.5 mg capsule Take 4.5 mg by mouth once daily.Active amphetamine-dextroamphetamine XR (ADDERALL XR) 30 mg capsule Take 30 mg by mouth once daily.Active escitalopram oxalate (LEXAPRO) 20 mg tablet Take 20 mg by mouth every morning.Active montelukast (SINGULAIR) 10 mg tablet Take 10 mg by mouth daily at bedtime.Active fluticasone/umeclidin/vilanter (TRELEGY ELLIPTA INHALATION) Inhale as instructed.Active metoprolol succinate ER (TOPROL XL) 25 mg 24 hr tablet Indications:PalpitationTake 1 tablet by mouth once daily. 30 tablet tive clonazePAM (KLONOPIN) 0.5 mg tablet Take 1 mg by mouth.04/02/2024ctive cyclobenzaprine (FLEXERIL) 5 mg tablet take 1 tablet by mouth three times a day for 14 days11/27/2024tive FARXIGA 10 mg tablet Take 10 mg by mouth once daily.Active diclofenac, EC, (VOLTAREN) 75 mg EC tablet 1 tab(s) orally 2 times a day for 30 day(s)03/19/2024ctive doxepin capsule 100 mg take 2 capsules (200 mg) by mouth at bedtimeActive traMADol (ULTRAM) 50 mg tablet Take by mouth.06/29/2022ctive tiZANidine (ZANAFLEX) 4 mg tablet 10/31/2024tive propranolol (INDERAL) 10 mg tablet every 12 hours.09/30/2024tive predniSONE (DELTASONE) 10 mg tablet PLEASE SEE ATTACHED FOR DETAILED EEZCRZCUYW34/17/2025tive prazosin (MINIPRESS) 2 mg cap Take 2 mg by mouth.12/16/2024tive OXcarbazepine (TRILEPTAL) 300 mg tablet Take 300 mg by mouth.ctive ondansetron (ZOFRAN) 4 mg tablet Take 4 mg by mouth every 8 hours as needed for nausea/vomiting.02/28/2023ctive OLANZapine (ZYPREXA) 2.5 mg tablet 12/30/2024tive buPROPion XL (WELLBUTRIN XL) 300 mg 24 hr tablet 300 mg.11/22/2024tive cyclobenzaprine (FLEXERIL) 5 mg tablet Indications:pelvic pain/muscle spasmPlace 1 tab per vagina up to TID prn pain/spasm, if no effect may try 2 tabs TID prn. [address] (PROTONIX) 40 mg tablet Take 1 tablet by mouth two times a day before meals. 120 tablet ctive Active Problems ProblemNoted DateDiagnosed DatePelvic floor jkeubjotnkg79/20/2025hronic oaocvigqxzuk92/20/2025Muscle spasm10/11/20249183Jnqphexaxjsou23/12/2023 Encounters DateTypeDepartmentCare ZisxXmnnumoibig22/04/2025 1:25 PM ESTAnesthesia Event Ambulatory Surgery [address] [place] [address] Jenna Merrill APRN.Marissa Haynes APRN.COMMUNITY HEALTH REPRESENTATIVE 02/25/2025 12:30 PM EST - 02/25/2025 11:59 PM ESTHospital Encounter Ambulatory Surgery [address] [place] [address] Grayson Peter MD Barchanowicz, Angela, RN Synk, Lacey, APRN.DAHLIA Garcia, initial encounter [T17.308A] Discharge Disposition: Home02/24/20251336Kfkmug83/03/2025 Preprocedure Call Ambulatory Surgery [address] [place] [address] Grayson Peter MD 02/19/2025Results Follow-Up [facility] [address] [place] [address] Grayson Peter MD 02/18/2025 3:30 PM EDTNurse Visit Gastroenterology [facility] [address] [place] [address] [facility] Helicobacter pylori jyxnnsjkq63/27/2025 9:00 AM EDTOffice Visit Gastroenterology [facility] [address] [place] [address] Grayson Peter MD Choking, initial encounter (Primary Dx); Gastroesophageal reflux disease, unspecified whether esophagitis present; Helicobacter pylori gastritis; Gastroparesis; Chronic constipation; Metabolic dysfunction-associated steatotic liver disease (MASLD)02/13/2025Travel 02/12/2025 Patient Msg Gastroenterology [address] [place] [place] [address] Grayson Peetr MD Appointment Wycjtub9201/09/2025 Get Medical Advice Colorectal Surgery [facility] [address] [place] [address] Lesly Barnett APRN.PHOTOGRAPHY INSTRUCTOR Follow up01/06/2025 Get Medical Advice Cardiology [address] [id number] Provider, Cccinda Izbxmnn5012/30/2024 9:00 AM EDTOffice Visit Gynecology [address] [place] [phone] Emma Ying, BASSAM.PHOTOGRAPHY INSTRUCTOR Chronic pelvic pain in female (Primary Dx); Other specified dyspareunia; Pelvic pain in female; High-tone pelvic floor dysfunction; Vulvodynia; Stress incontinence; Irritable bowel syndrome with constipation; Vaginal nkkjmrq6712/30/2024Travelfrom Last 3 Months Family History Medical HistoryRelationCommentsheart murmurBrothermurmurMaternal AuntColon CancerMaternal Grandfatherstarted in the kidneyRelationStatusCommentsBrother Maternal AuntAliveMaternal Grandfather Social History Tobacco UseTypesPacks/DayYears UsedDateSmoking Tobacco: NeverSmokeless Tobacco: Never Tobacco Cessation:Counseling Given: Not Answered Alcohol UseStandard Drinks/WeekCommentsYes4 (1 standard drink = 0.6 oz pure alcohol)sociallyPHQ-2AnswerDate RecordedPHQ-2 qhhmh765UDIT-CAnswerDate RecordedFrequency of Alcohol ConsumptionNot on file02/25/2025Q2: How many drinks containing alcohol do you have on a typical day when you are drinking?Patient does not drink02/25/2025Frequency of Binge DrinkingNot on file02/25/2025rea Deprivation IndexAnswerDate RecordedNational Score (1-100), lower number is lower ldfr443910/17/2022State Score (1-10), lower number is lower ykab096 Data from: https://www.neighborhoodatlas.medicine.[facility].edu/. Last address used for zhkcctplcqq7339 [address] regnantCommentsNoSex and Gender Information ValueDate RecordedSex Assigned at BirthNot on fileLegal CcqEebhor53/03/2019 9:05 PM EDTGender NlbsmndoHrvopd83/15/2022 8:30 AM ESTSexual OrientationNot on file Last Filed Vital Signs Vital SignReadingTime TakenCommentsBlood Suzygcjx747/8202/25/2025 1:56 PM EST Yibcr065102/25/2025 1:56 PM RWWPzwgzagzgbw65.3 ??C (97.4 ??F)10/17/2022 9:55 AM EDTRespiratory Fncf543704/27/2024 1:56 PM ESTOxygen Fgqkpbesdl32%02/25/2025 1:56 PM ESTInhaled Oxygen Concentration--Qjclzj96 kg (211 lb 10.3 oz)02/17/2025 9:00 AM ZYOUxdgyc373 cm (5' 3 )08/13/2024 2:57 PM EDTBody Mass Index37.49008/13/2024 2:57 PM EDT Plan of Treatment Health MaintenanceDue DateLast DoneCommentsAnxiety Nbeuxufch28/07/2007Depression Whwurauny12/07/2007HIV Siubupvsv75/07/2007HPV Vaccine (2 - 3-dose series) Cervical Cancer Zavecmioy50/07/2010Covid-19 Vaccine ( season), 04/29/2021, 03/03/2021Influenza Vaccine (#1)/, 03/16/2020, 01/08/2018, Additional history exists DTaP,Tdap,Td Vaccine (7 - Td or Tdap), 02/05/2010, 12/28/1993, Additional history existsHepatitis B EdsamzmEskecxriq56/14/2007, 11/02/2006, 02/20/1998Hepatitis C EzjkhfygqYzpfkzprt39/03/2025 Goals GoalPatient Goal TypeAssociated ProblemsRecent ProgressPatient-Stated?Author Blood Pressure < 140/90 Blood Anxipmye341/82(02/25/2025 1:56 PM EST)Solo Barclay MD Procedures Procedure NamePriorityDate/TimeAssociated DiagnosisCommentsCYTOLOGY NON-CHILD CARE GIVER Amnwweb7602/25/2025 1:32 PM EST Choking, initial encounter Gastroesophageal reflux disease, unspecified whether esophagitis present Helicobacter pylori gastritis Gastroparesis EGD - THERAPEUTIC, EUS, OR TUBE PUYTMUEWZHMTLWdkvbqy67/04/2025 1:26 PM EST Choking, initial encounter Gastroesophageal reflux disease, unspecified whether esophagitis present Helicobacter pylori gastritis Gastroparesis BREATH TEST H DDEMFTPeyudjy00/28/2025 Helicobacter pylori gastritis HEPATIC FUNCTION HUPGuuumnl01/27/2025 11:36 AM EDT Metabolic dysfunction-associated steatotic liver disease (MASLD) PT ED PATIENT WKJWACBBOGC39/24/2025 EXERCISE STRESS ECG (WITHOUT IMAGING)Mhjxsyf8901/08/2025 10:15 AM EDT Syncope, unspecified syncope type HEPATITIS C ANTIBODY IA WITH RAZYNQOGPPQXXwfopyx11/03/2025 3:01 PM EST Elevated LFTs BRBPR (bright red blood per rectum) from Last 3 Months or Most Recently Relevant to Health Maintenance Results * CYTOLOGY NON-CHILD CARE GIVER (02/25/2025 1:32 PM EST)ComponentValueRef RangeTest Method Analysis TimePerformed AtPathologist SignatureCase ReportMedical Cytology Report ? Case: [id number] ? Authorizing Provider: ??Grayson Peter MD ? Collected: ? 02/25/2025 01:32 PM ? Ordering Location: ? Ambulatory Surgery ? Received: ?02/26/2025 03:51AM ? Pathologist: ? George Ware MD ? Specimen: ?Esophagus, r/o melissa ? 02/27/2025 4:03 PM [facility] - Esophagus, Marion - r/o melissa Negative for malignant cells. No fungal elements seen. 02/27/2025 4:03 PM [facility] at 1603 ESTGross DescriptionA. Esophagus 20 cc clear colorless fluid with brush with particles. ThinPrep prepared. 02/27/2025 4:03 PM [facility] LABClinical PmjgxzbA86.308A - Choking, initial encounter [ICD-10-CM] K21.9 - Gastroesophageal reflux disease, unspecified whether esophagitis present [ICD-10-CM] K29.70, B96.81 - Helicobacter pylori gastritis [ICD-10-CM] K31.84 - Gastroparesis [ICD-10-CM] 02/27/2025 4:03 PM [facility] LABPerforming LabTechnical component, tune up mechanic screening performed at: [facility], [address] [place] [id number] CLIA: [id number] Diagnostic interpretation performed at: [facility], [address] [place] [address] [id number] CLIA# [id number] Applications Engineer: Alhaji Galvez MD 02/27/2025 4:03 PM [facility] LABDisclaimerLaboratory Developed Test (LDT) Disclaimer: Performance characteristics of immunohistochemical, immunofluorescent, and chromogenic in-situ hybridization tests have been determined by the performing laboratory within the [facility] Department of Pathology and Laboratory Medicine ([facility], [facility], [facility], [facility], [facility], [facility], or [facility]) in a manner consistent with CLIA requirements. One or more of these tests may not have been cleared or approved by the FDA. The [facility] Department of Pathology and Laboratory Medicineis regulated under CLIA as qualified to perform high-complexity testing. These tests are used for clinical purposes. These should not be regarded as investigational or for research. Positive and negative controls stain appropriately.02/27/2025 4:03 PM EST [facility] LABSpecimen (Source)Anatomical Location / Laterality Collection Method / VolumeCollection TimeReceived TimeBrushSPECIMEN FROM ESOPHAGUS / Oawkrgm3202/25/2025 1:32 PM EST02/26/2025 3:51 AM EST Narrative Authorizing ProviderResult TypeResult StatusNoma Rome MDCYTOLOGYFinal Result Performing OrganizationAddressCity/State/[facility] CodePhone Number [facility] [address] * EGD - THERAPEUTIC, EUS, OR TUBE INTERVENTIONS (02/25/2025 1:26 PM EST) Anatomical RegionLateralityModalityOtherSpecimen (Source)Anatomical Location / LateralityCollection Method / VolumeCollection TimeReceived Time02/25/2025 1:26 PM EST Narrative 02/25/2025 1:43 PM EST [facility] Gastroenterology Gastrointestinal Endoscopy Patient Name: Orion Barnett Procedure Date: 02/25/2025 1:26 PM Date of : 1990 Admit Type: Outpatient Age: 34 Room: [facility] Gender: Female Note Status: Finalized Attending MD: Grayson Peter MD, [id number] Procedure: ? Upper GI endoscopy Indications: ? [...] by the physician, ? the nurse, the jewelry enameler and the facility environmental technician in ? the procedure room. Mental [...] Procedure Code(s): ? --- Professional --- ? 23805, Esophagogastroduodenoscopy, flexible, ? transoral; diagnostic, including collection of ? specimen(s) by brushing or washing, when performed ? (separate procedure) Diagnosis Code(s): ? --- Professional --- ? K21.00, Gastro-esophageal reflux disease with ? esophagitis, without bleeding ? K31.84, Gastroparesis ? R13.10, Dysphagia, unspecified CPT copyright 2020 [employer]. All rights reserved. The codes documented in this report are preliminary and upon assistant oceanographer review may be revised to meet current [...] Method / VolumeCollection TimeReceived Time BreathBREATH / Lcujthw4702/18/2025 Impressions [facility] - 02/18/2025 Negative Narrative Authorizing ProviderResult TypeResult Liz Peter MDLABORATORYFinal Result Performing OrganizationAddressCity/State/ZIP CodePhone Number [facility] [address] [place] [address] * (ABNORMAL) HEPATIC FUNCTION PNL (02/17/2025 11:36 AM EDT)ComponentValueRef RangeTest MethodAnalysis TimePerformed AtPathologist SignatureAlbumin4.43.9 - 4.9 g/dL02/17/2025 12:44 PM [facility] LABORATORYBilirubin, Total0.20.2 - 1.3 mg/dL02/17/2025 12:44 PM [facility] LABORATORYBilirubin, Direct0.1 <0.3 mg/dL02/17/2025 12:44 PM [facility] LABORATORYAlkaline Phosphatase 130(H)34 - 123 U/L1 12:44 PM [facility] VCKSRGNKDIFTD2159 - 35 U/L1 12:44 PM [facility] TIUKXIBDHZNLA86(H)7 - 38 U/L1 12:44 PM [facility] LABORATORYProtein, Total7.36.3 - 8.0 g/dL02/17/2025 12:44 PM [facility] LABORATORYSpecimen (Source)Anatomical Location / LateralityCollection Method / VolumeCollection TimeReceived TimeBloodBLOOD SPECIMEN / UnknownVenipuncture / Xbtxlmi7902/17/2025 11:36 AM EDT1 11:36 AM EDT Narrative Authorizing ProviderResult TypeResult StatusGrayson Peter MDLABORATORYFinal Result Performing OrganizationAddressCity/State/ZIP CodePhone Number [facility] [address] [facility] [place] [address], * PT ED PATIENT INFORMATION (02/14/2025)Specimen (Source)Anatomical Location / LateralityCollection Method / VolumeCollection TimeReceived Time02/14/2025 Narrative [facility] - 02/14/2025 Provider ROME your patient ORION BARNETT started their Mukul on 02-14-2025 and completed it on 02-14-2025 Mukul program: PATIENT SAFETY INSTRUCTIONS FOR HEALTHCARE SETTINGS Authorizing ProviderResult TypeResult Liz Peter MDEMMIFinal Result Performing OrganizationAddressCity/State/ZIP CodePhone Number [facility] * EXERCISE STRESS ECG (WITHOUT IMAGING) (01/08/2025 10:15 AM EDT)Specimen (Source)Anatomical Location / LateralityCollection Method / VolumeCollection TimeReceived Time01/08/2025 10:15 AM EDT Narrative [facility] - 01/10/2025 4:51 PM EDT Stress ECG Report: Exercise Stress ECG (without Imaging) [facility] Date of service: 01/08/2025 10:15:05 AM TURNER Ordering physician: SOLO MORA retail zone specialist: Elvia Caicedo Electrical Tests Supervisor: Acacia Simeon Interpreting physician: Gracie Villanueva MD Patient name: ORION BARNETT Age: 34 years Gender: F Height: 160.02 cm BSA: 2.03 m?? Weight: 92.53 kg ??BMI: 36.1 kg/m?? Indication: Syncope / near-syncope Stress ECG Conclusion: Conclusion: Normal with exception due to symptoms Comments: Pt c/o dizziness and seeing black spots during peak exercise. Slow to resolve during recovery. (~ 9 mins). Stress ECG Summary: The patient's resting heart rate was 100 bpm and blood pressure was 126/94 mmHg. The patient exercised according to the [place] 10% protocol. The estimated end-exercise MET level [...] 154/92 mmHg. The double product achieved was [address]. Medications: ? Last Used INDERAL ?2 Days METOPROLOL METOPROLOL METOPROLOL Resting ECG: Sinus Tachycardia Exercise Protocol: [place] 10% Stress Exercise Table: +-----+ +--------+ +---+---+---+----+---+----+ Stage Speed (MPH) Grade(%) Time (min) HR SYS KATHERINE RPE SOB METS +-----+ +--------+ +---+---+---+----+---+----+ 1 ? 1.7 ? 10.0 ? 2.0 ? 130 122 90 10.0 2.0 4.2 +-----+ +--------+ +---+---+---+----+---+----+ 2 ? 2.1 ? 11.0 ? 4.0 ? 141 146 86 12.0 3.0 5.1 +-----+ +--------+ +---+---+---+----+---+----+ 3 ? 2.5 ? 12.0 ? 6.0 ? 153 154 92 14.0 3.0 6.1 +-----+ +--------+ +---+---+---+----+---+----+ +-----+ +---------+ +---+---+---+----+---+----+ ? Speed (MPH) Grade (%) Time (min) HR SYS KATHERINE RPE SOB METS +-----+ +---------+ +---+---+---+----+---+----+ Final 3.0 ? 13.0 ? 6.60 ? 173 154 92 18.0 6.0 6.5 +-----+ +---------+ +---+---+---+----+---+----+ +-----+ + ? Symptoms ?? +-----+ + Final Dizziness. +-----+ + Recovery Table: +------+ +--------+ +---+---+---+----+ Stage Speed (MPH) Grade(%) Time (min) HR SYS KATHERINE METS +------+ +--------+ +---+---+---+----+ 1 ? 1.5 ? 2.5 ? 1.0 ? 151 170 74 2.7 +------+ +--------+ +---+---+---+----+ 2 ? 1.5 ? 2.5 ? 2.0 ? 136 ? 2.7 +------+ +--------+ +---+---+---+----+ 3 ? 3.0 ? 126 178 90 ? +------+ +--------+ +---+---+---+----+ 4 ? 5.0 ? 114 144 80 ? +------+ +--------+ +---+---+---+----+ 5 ? 7.0 ? 115 ? +------+ +--------+ +---+---+---+----+ 6 ? 9.0 ? 112 112 74 ? +------+ +--------+ +---+---+---+----+ +-----+ + + Stage Arrhythmias ? Symptoms ? +-----+ + + 1 ? Dizziness resolving +-----+ + + 2 ? Dizziness resolving +-----+ + + 3 ? Dizziness resolving +-----+ + + 4 Rare PAC (<3/min) Dizziness resolving +-----+ + + 6 ? Dizziness resolved +-----+ + + Stress Observations: Resting HR: 100 bpm Peak HR: 173 bpm (94% MPHR) Resting BP: 126 / 94 mmHg Peak BP: 154 / 92 mmHg Total exercise time: 6 minutes 36 seconds METS achieved: 6.5 Chronotropic response index (CRI): 0.87 Heart rate recovery (HRR): 22 bpm Rate Pressure Product (RPP): 07631 Stress Exercise Observations: Reason for test termination: general fatigue Symptoms during test: Other symptoms during the test included dizziness Heart rate response: Adequate heart rate response, Normal CRI (>0.8 Not on B Selene) and Normal HRR (>12 or >[address]/EC) Blood pressure response: Normal BP response ST segment and T wave changes: No ST changes Goss Treadmill Score: Normal Goss Treadmill Score (>=5) Arrhythmias: PACs Metabolic Exercise Data Variable: Observed value [Expected Range] HGI: 1.1 [>1.06 bpm/mmHg] IMPORTANT NOTE REGARDING ESTIMATED MET VALUES: Effective 02/09/2020, the reference equation for determining estimated MET values for [facility] stress tests changed. Comparison of test results before and after that date may show a change in estimated MET values for peak/max exercise despite a test duration that is similar in length. The validity of the new FRIEND equation for exercise METS is endorsed by the [place] [employer]. Timmy P, Cassius LA, Vicente R, Balaji J, Enrique J. New Generalized Equation for Predicting Maximal Oxygen Uptake (from the Fitness Registry and the Importance of Exercise National Database). The [place] Journal of Cardiology. 2017;120(4):688-692). Final Stress Automobile Body Repair Supervisor Report: Exercise Stress ECG (without Imaging) [facility] Date of service: 01/08/2025 10:15:05 AM TURNER Supervising physician: Milli Cotter MD PATIENT: Name: ORION BARNETT Age: 34 years Gender: F The supervising physician was in the department and immediately available. Final See Link below for Image Authorizing ProviderResult TypeResult StatusArshneenaima Mora MDSTRESSFinal Result Performing OrganizationAddressCity/State/ZIP CodePhone Number [facility] [address] [place] [address] * HEPATITIS C ANTIBODY IA WITH CONFIRMATION (04/26/2024 3:01 PM EST)Component ValueRef RangeTest MethodAnalysis TimePerformed AtPathologist SignatureHep C Antibody VIHqshgljcAzmdneqt78/04/2025 10:55 AM ESTSELECT MEDICAL [facility] LABComment:The result suggests no evidence of active infection with Hepatitis C virus. Should recent infectionbe suspected, repeat testing may be considered 4-6 weeks after this draw.Specimen (Source)Anatomical Location / Laterality Collection Method / VolumeCollection TimeReceived TimeBloodBLOOD SPECIMEN / UnknownVenipuncture / Zxsxqhe2004/26/2024 3:01 PM EST04/26/2024 3:02 PM EST Narrative Authorizing ProviderResult TypeResult StatusLauren Madhavi JUSTICE-CLABORATORYFinal ResultPerforming OrganizationAddressCity/State/ZIP CodePhone Number [facility] [address] [facility] [place] [address] [place] [address], from Last 3 Months or Most Recently Relevant to Health Maintenance Insurance MemberSubscriberPlan / Payer (Effective 2020-Present)Name:Orion Barnett Relation to Subscriber:SelfName:Orion Barnett Payer ID:Not on file Type:PPO Address: [facility] [address] [id number] Care Teams Team MemberRelationshipSpecialtyStart DateEnd Date Emerald Sanchez MD [address] [facility] [address] [place] [address] PCP - GeneralFamily Jsxzyjva41/4/19 Deena Osorio APRN [address] [facility] [address] [place] [address] Referringmily Uxtqcitd96/11/24 Darwin Starr DO [address] [place] [address] [place] [address] ReferringOb/Gyn3
--- OUTSIDE RECORDS SUMMARY | 2025-02-27 19:13 | XMS_ITS | Encounter Summary ---
Author Organization [facility] Address [address] [place] [address] Care Team Providers Care Systems Security Analyst Name Role Phone Emerald Sanchez MD Primary Care Provider [phone] Deena Osorio APRN Unavailable [phone] Darwin Starr DO Unavailable [phone] Source Comments In the event this information is protected by the Federal Confidentiality of Alcohol and Drug AbusePatient Records regulations: The Federal rules restrict any use of the information to criminally investigate or prosecute any alcohol or drug abuse patient.[facility] Encounter Details DateTypeDepartmentCare Team (Latest Contact Info)Mlacwkimhip70/03/2025Travel Social History Tobacco UseTypesPacks/DayYears UsedDateSmoking Tobacco: NeverSmokeless Tobacco: NeverAlcohol UseStandard Drinks/WeekCommentsYes4 (1 standard drink = 0.6 oz pure alcohol)sociallyPHQ-2AnswerDate RecordedPHQ-2 korxr857UDIT-CAnswerDate RecordedFrequency of Alcohol ConsumptionNot on file02/25/2025Q2: How many drinks containing alcohol do you have on a typical day when you are drinking?Patient does not drink02/25/2025Frequency of Binge DrinkingNot on file5Area Deprivation IndexAnswerDate RecordedNational Score (1-100), lower number is lower zuwb243810/17/2022State Score (1-10), lower number is lower saho108 Data from: https://www.neighborhoodatlas.medicine.[facility].edu/. Last address used for z[address]emcto[address] 3CommentsNoSex and Gender Information ValueDate RecordedSex Assigned at BirthNot on fileLegal YqjRnumly40/03/2019 9:05 PM EDTGender SovehhxtNfclfj80/15/2022 8:30 AM ESTSexual OrientationNot on file documented as of this encounter Plan of Treatment Not on file documented as of this encounter Goals GoalPatient Goal TypeAssociated ProblemsRecent ProgressPatient-Stated?Author Blood Pressure < 140/90 Blood Weyahuwt620/82(02/25/2025 1:56 PM EST)Solo Barclay, MDdocumented as of this encounter Visit Diagnoses Not on filedocumented in this encounter Care Teams Team MemberRelationshipSpecialtyStart DateEnd Date Emerald Sanchez MD [address] [place] [address] PCP - GeneralFamily Kuzsklgm22/4/19 Deena Osorio APRN [address] [place] [address] ReferringFamily Chzajjxz30/11/24 Darwin Starr DO [address] [facility] [place] [address] ReferringOb/Gyn07/02/24documented as of this encounter
--- OUTSIDE RECORDS SUMMARY | 2025-02-27 19:13 | XMS_ITS | Patient Health Record ---
Author Organization [facility] Address [address] [place] [phone] Care Team Providers Care Lithographic Etcher Name Role Phone GIOVANI HAGEN MD Primary Care Provider Oren Pulliam Unavailable [phone] Allergies Allergen (clinical drug ingredient) Drug/Non Drug Allergy documented on EMR Reaction Allergy Type Onset Date Status Contrast Allergy PreMed PackUnknownDrug AllergyActive Reason For Referral No Information Medications Medication SIG (Take, Route, Frequency, Duration) Notes Start Date End Date Status Vyvanse ActiveWellbutrinActiveXanaxActiveVraylarActiveAlbuterolActive Social History Tobacco Use: Social History Observation Description Date Details (start date - stop date) Former Smoker NA - NA Alcohol Screen Question Answer Notes Did you have a drink containing alcohol in the p ast year? Yes How often did you have a drink containing alcohol in the past year?2 to 4 times a month (2 points)How many drinks did you have on a typical day when you were drinking in the past year?1 or 2 drinks (0 point)How often did you have 6 or more drinks on one occasion in the past year?Never (0 point)Points2 InterpretationNegativeSmoking Question Answer Notes Status former smoker Section Notes: . Works for the [employer] Problems Problem Type SNOMED Code ICD Code Onset Dates Problem Status W/U Status Risk Notes Problem Gastroparesis (478465157) Gastroparesis ( K31.84) ActiveconfirmedProblemElevated transaminase level (R74.01)Activeconfirmed Plan Of Treatment Pending Test Test Name Order Date Gastric Emptying Scan 05/01/2023 lipase* 05/01/2023 LFT's 05/01/2023 LFT's 04/01/2023 Insurance Providers Payer Name Payer Address Payer Phone Subscriber Number Group Number Insured Name Patient Relationship to Insured Coverage Start Date Coverage End Date [employer] [address] [place] [phone] [id number] Belgica Barnett Self - patient is the insured Medical (General) History Medical History History ICD Code anxiety depressionADHDasthmadiverticulitishelicobacter pylori infectionulcer pancreatitis, acute, gallstonebipolar disorderadhesionsobesitySurgical History Surgery Date(Month/Year) EGD colonoscopycholecystectomycesarean sectionlaparoscopy
--- OUTSIDE RECORDS SUMMARY | 2025-02-27 19:14 | XMS_ITS | Clinical Summary ---
Author Organization [facility] Address [address], [address] [place] [address] Care Team Providers Care Mate Fourth Name Role Phone Emerald Sanchez MD Primary Care Provider [phone] Allergies Active AllergyReactionsCriticalityNoted DateCommentsCat DanderAnaphylaxisHigh 11/30/2022Iodinated Contrast MediaAnaphylaxis,Hives,EwyaiyjAlcq39/20/2019Iodine Itching,Lxevhwla30/19/2019 Omnipaque 300: Patient experienced itching on her neck and left side of her face. Also, pt complained of tongue feeling itchy and feels like something is stuck in her throat . Patient received diphenhydramine (Benadryl) Dncbhqw9703/21/2023 Medications MedicationSigDispense QuantityRefillsLast FilledStart DateEnd DateStatus ALPRAZolam (XANAX) 0.5 MG tablet Take 1 tablet by mouth nightly.Active cariprazine hcl (VRAYLAR) 4.5 MG CAPS capsule Take 1 capsule by mouth nightlyActive EPINEPHrine (SYMJEPI) 0.3 MG/0.3ML SOSY injection Inject 0.3 mLs into the muscle as needed for AnaphylaxisActive lisdexamfetamine (VYVANSE) 50 MG capsule Take 1 capsule by mouth every morning. Max Daily Amount: 50 mgActive albuterol sulfate HFA (VENTOLIN HFA) 108 (90 Base) MCG/ACT inhaler Inhale 2 puffs into the lungs every 6 hours as needed for WheezingActive buPROPion (WELLBUTRIN SR) 150 MG extended release tablet Take 1 tablet by mouth 2 times dailyActive Cholecalciferol (VITAMIN D3) 125 MCG (5000 UT) TABS Take 1 tablet by mouth DailyActive ondansetron (ZOFRAN) 4 MG tablet Take 1 tablet by mouth every 8 hours as needed for Nausea or Vomiting 20 tablet 03/24/2023ctive Active Problems ProblemNoted DateDiagnosed DateCalculus of gallbladder without cholecystitis without /30/2023cute pancreatitis without infection or necrosis 03/21/2023cute biliary pancreatitis without infection or zdwvjwno02/28/2023 History of COVID-1916150Ynxlelqhvpdfh93/12/4196Srwrvon18/02/2023ipolar disorder, in partial remission, most recent episode manic09/23/2022ttention deficit hyperactivity disorder, predominantly inattentive type09/23/2022 Overview (03/22/2023): Last Assessment & Plan: Patient'sCurrent ADD is controlled with current dose No evidence of overuse or abuse Weight has been stable Encouraged Medication Holidays PDMP reviewed F/U routinely every 4 months Diverticular disease of colon09/23/2022Elevated liver mphswkv9009/23/2022Irritable bowel syndrome with xvlrxhewkgfi29/02/2023Mild intermittent asthma without glkcubjnfaty81/02/8000Pwfknmouejwbewbuimiz56/10/2022therosclerosis of coronary artery without angina tsmjqisa33/25/2022Gastroesophageal reflux disease without /17/2020 Social History Tobacco UseTypesPacks/DayYears UsedDateSmoking Tobacco: FormerCigarettesQuit: 05/06/2008Smokeless Tobacco: Never Tobacco Cessation:Counseling Given: Not Answered Alcohol UseStandard Drinks/WeekCommentsNot Asked0 (1 standard drink = 0.6 oz pure alcohol)1 a week. Last 03/18/23AHC UtilitiesAnswerDate RecordedIn the past 12 months has the [employer], gas, oil, or water [employer] threatened to shut off services in your home?No03/21/2023Hunger Vital SignAnswerDate RecordedWithin the past 12 months, you worried that your food would run out before you got the money to buymore.Never true03/21/2023Within the past 12 months, the food you bought just didn't last and you didn't have money to get more.Never true 03/21/2023RAPARE - TransportationAnswerDate RecordedIn the past 12 months, has lack of transportation kept you from medical appointments or from getting medications?No03/21/2023In the past 12 months, has lack of transportation kept you from meetings, work, or from getting things needed for daily living?No 03/21/2023Housing Stability Vital SignAnswerDate RecordedIn the last 12 months, was there a time when you were not able to pay the mortgage or rent on time?No 03/21/2023In the last 12 months, how many places have you lived?In the last 12 months, was there a time when you did not have a steady place to sleep or slept in ashelter (including now)?No03/21/2023Housing Stability Vital SignAnswerDate RecordedIn the last 12 months, was there a time when you were not able to pay the mortgage or rent on time?No03/21/2023Number of Times Moved in the Last YearNot on file03/21/2023Homeless in the Last YearNot on file03/21/2023 Interpersonal Safety ([facility] HRSN)AnswerDate RecordedHow often does anyone, including family and friends, physically hurt you?Food Insecurity AnswerDate RecordedWithin the past 12 months, you worried that your food would run out before you got the money to buymore.Within the past 12 months, the food you bought just didn't last and you didn't have money to get more.Interpersonal Safety Domain Source: IP Abuse ScreeningAnswerDate RecordedRead-Only, Retired: Physical OmdcfKiqpon14/28/2023Read-Only, Retired: Verbal CdwqlQnyafc44/28/2023Read-Only, Retired: Emotional yxvhgQtlupg66/28/2023 Read-Only, Retired: Financial WlhugCjonss2023Read-Only, Retired: Sexual kcjezDcccvb54/28/2023CommentsUnknownSex and Gender InformationValueDate RecordedSex Assigned at MqvbhEkrynf89/19/2024 12:06 PM EDTLegal SexFemale 06/03/2012 12:31 PM ESTGender LxelmygkUkrkxx55/19/2024 12:06 PM EDTSexual WqlkhdbxgspJbylwsog14/19/2024 12:06 PM EDT Last Filed Vital Signs Vital SignReadingTime TakenCommentsBlood Afrwppjf578/6703/24/2023 9:43 AM EST Akhff151203/24/2023 9:43 AM GCSZoxscypbpoc66.8 ??C (98.2 ??F)03/24/2023 9:43 AM ESTRespiratory Ogok955205/25/2022 9:43 AM ESTOxygen Owlkdaiyjr019%03/24/2023 9:43 AM ESTInhaled Oxygen Concentration--Xrckle57.9 kg (156 lb 6.4 oz)03/24/2023 2:57 AM VXYPiwqec362.5 cm (5' 2.01 )03/21/2023 11:15 PM ESTBody Mass Index28.6 03/21/2023 11:15 PM EST Plan of Treatment Health MaintenanceDue DateLast DoneCommentsVaricella vaccine (2 of 2 - 2-dose childhood series)Depression Xyhunybkdc78/07/2001HIV screen 09/29/2003Hepatitis C weufbv0209/28/2006HPV vaccine (2 - 3-dose series)11/30/2006 11/02/2006Pneumococcal 0-49 years Vaccine (1 of 2 - PCV)09/29/2007DTaP/Tdap/Td vaccine (6 - Td or Tdap), 12/28/1993, 12/07/1992, Additional history existsFlu vaccine (#1), 03/16/2020, 01/08/2018, Additional history existsCOVID-19 Vaccine ( - season)2024 11/02/2021, 04/29/2021, 1Polio ssxioaeDhhzocrod06/16/1993, 06/09/1992, 05/21/1990, Additional history existsMeningococcal (ACWY) vaccineCompleted 11/02/2006Hepatitis B xhxvzssKbutqefro18/14/2007, 11/02/2006, 02/20/1998 Hepatitis A vaccineAged OutNo longer eligible based on patient's age to complete this topicHib vaccineAged OutNo longer eligible based on patient's age to complete this topicMeningococcal B vaccineAged OutNo longer eligible based on patient's age to complete this topic Medical Devices ImplantedTypeAreaManufacturerDevice IdentifierShelf Expiration DateModel / Serial / LotClip Int L Polymer Ernie Lig Hem O Ernie (6ea/Pk) - [id number] Implanted:Qty: 1 on 03/23/2023 [id number] / / [id number] Insurance Advance Directives * Full Code (Latest Code Status on File) Date ActivatedDate DgkjlynolulNtiffpsn64/28/2023 11:04 PM03/24/2023 6:54 PM Care Teams Team MemberRelationshipSpecialtyStart DateEnd Date Emerald Sanchez MD PCP - GeneralFamily Medicine11/02/18
--- OUTSIDE RECORDS SUMMARY | 2025-02-27 19:14 | XMS_ITS | Patient Health Record ---
Author Organization [facility] [employer] Address [address] [facility] [place] [address] Care Team Providers Care Commission Agent Livestock Name Role Phone Emerald Sanchez MD Primary Care Provider Mary Cortés MD, Brandyn Unavailable [phone] Allergies Allergen (clinical drug ingredient) Drug/Non Drug Allergy documented on EMR Reaction Allergy Type Onset Date Status CT scan dye (uncoded)UnknownAllergyActive Reason For Referral No Information Medications Medication SIG (Take, Route, Frequency, Duration) Notes Start Date End Date Status Vraylar 4.5 MG 1 capsule Orally Once a day ActiveWellbutrinActiveXanax 0.25 MG1 tablet Orally Twice a dayActiveVyvanse 50 MG1 capsule in the morning Orally Once a dayActive Social History Tobacco Use: Social History Observation Description Date Details (start date - stop date) Former Smoker NA - NA Tobacco Use/Smoking Question Answer Notes Are you a: former smoker Alcohol Screen (Audit-C) Question Answer Notes Did you have a drink containing alcohol in the p ast year? Yes Dqvbjp8KgsklzcwmdjbjpUelswcog Problems Problem Type SNOMED Code ICD Code Onset Dates Problem Status W/U Status Risk Notes Problem Postoperative care ( regime/therapy) (202259158) Encounter for postoperative care (Z48.89) ActiveconfirmedProblemCholecystitis (04691188)Cholecystitis (K81.9)Active confirmedProblemAcute pancreatitis (929887714)Acute biliary pancreatitis without infection or necrosis (K85.10)Activeconfirmed Plan Of Treatment No Information Insurance Providers Payer Name Payer Address Payer Phone Subscriber Number Group Number Insured Name Patient Relationship to Insured Coverage Start Date Coverage End Date Medical [facility] [address] [place] [address] [id number] Belgica Barnett Self - patient is the insured Medical (General) History Medical History History ICD Code asthma Surgical History Surgery Date(Month/Year) daVinci assisted laparoscopic cholecyste ctmy C-sections x 3colonoscopyegd
--- OUTSIDE RECORDS SUMMARY | 2025-02-27 19:14 | XMS_ITS | Clinical Summary ---
Author Organization [facility] Address [address] [place] [address] Care Team Providers Care Orchid Transplanter Name Role Phone Emerald Sanchez MD Unavailable Emerald Sanchez MD Primary Care Provider [phone] Allergies Active AllergyReactionsCriticalityNoted DateCommentsCat DanderAnaphylaxisHigh 11/30/2022Iodinated Contrast VyoppAkadm21/09/2023IodineItching,SwellingHigh 04/11/2019 Omnipaque 300: Patient experienced itching on her neck and left side of her face. Also, pt complained of tongue feeling itchy and feels like something is stuck in her throat . ??Patient received diphenhydramine (Benadryl) Other Reaction(s): unknow Medications MedicationSigDispense QuantityRefillsLast FilledStart DateEnd DateStatus montelukast (Singulair) 10 MG tablet Indications:Mild intermittent asthma without complication (HCC)Take 1 tablet (10 mg) by mouth at bedtime 30 tablet /5Active albuterol (2.5 MG/3ML) 0.083% nebulizer solution Indications:Moderate persistent asthmatic bronchitis with acute exacerbation (HCC)Take 3 mL (2.5 mg) by nebulization every 6 (six) hours if needed for wheezing 75 mL /5Active Cariprazine HCl (Vraylar) 4.5 MG capsule Indications:Bipolar disorder, in partial remission, most recent episode manic (HCC)Take 1 capsule by mouth Daily 100 capsule 5Active Krojjhwdyei-Tkreelqhg-Dyiezq (Trelegy Ellipta) 100-62.5-25 MCG/ACT aerosol powder Indications:Moderate persistent asthmatic bronchitis with acute exacerbation (HCC)INHALE 1 PUFF DAILY 60 each 5Active buPROPion XL (Wellbutrin XL) 150 MG 24 hr tablet Take 150 mg by mouth in the morning.5Active metoprolol succinate XL (Toprol-XL) 25 MG 24 hr tablet Indications:HypercholesterolemiaTake 1 tablet (25 mg) by mouth Daily 100 tablet 5Active albuterol HFA 90 mcg/act inhaler Indications:Mild intermittent asthma without complication (HCC)Inhale 2 puffs every 6 (six) hours if needed for wheezing 18 g 5Active citalopram (CeleXA) 10 MG tablet 1 (one) time each day at the same timeActive propranolol (Inderal) 10 MG tablet every 12 (twelve) hours5Active OXcarbazepine (Trileptal) 300 MG tablet Indications:Numbness and tingling,Atypical migraineTake 0.5 tablets (150 mg) by mouth at bedtime for 7 days, THEN 1 tablet (300 mg) at bedtime. 34 tablet 5Active escitalopram (Lexapro) 20 MG tablet Take 20 mg by mouth DailyActive LORazepam (Ativan) 0.5 MG tablet Take 0.5 mg by mouth in the morning and 0.5 mg before bedtime.Active ondansetron ODT (Zofran-ODT) 4 MG disintegrating tablet Take 4 mg by mouth every 6 (six) hours if neededActive prazosin (Minipress) 2 MG capsule Indications:PTSD (post-traumatic stress disorder)Take 1 capsule (2 mg) by mouth in the morning and 1 capsule (2 mg) in the evening and 1 capsule (2 mg) before bedtime. 100 capsule 5Active dapagliflozin (Farxiga) 10 MG Indications:Weight gain,Borderline diabetesTake 1 tablet (10 mg) by mouth Daily 30 tablet 11012/16//6Active OXcarbazepine (Trileptal) 300 MG tablet Indications:Lumbar radiculopathy,Atypical migraineTake 1 tablet (300 mg) by mouth in the morning and 1 tablet (300 mg) before bedtime. 60 tablet 6Active Semaglutide-Weight Management (Wegovy) 0.25 MG/0.5ML solution auto-injector Indications:Obesity (BMI 35.0-39.9 without comorbidity)Inject 0.25 mg under the skin 1 (one) time per week 2 mL 5Active Semaglutide-Weight Management (Wegovy) 0.25 MG/0.5ML solution auto-injector Indications:Obesity (BMI 35.0-39.9 without comorbidity)Inject 0.25 mg under the skin 1 (one) time per week 2 mL 5Active celecoxib (CeleBREX) 100 MG capsule Indications:Lumbar radiculopathyTake 1 capsule (100 mg) by mouth in the morning and 1 capsule (100 mg) before bedtime. 180 capsule 6Active doxepin (SINEquan) 100 MG capsule Indications:Major depressive disorder, recurrent, moderate (HCC)Take 2 capsules (200 mg) by mouth at bedtime 60 capsule 5Active amphetamine-dextroamphetamine XR (Adderall XR) 30 MG 24 hr capsule Indications:Attention deficit hyperactivity disorder (ADHD), predominantly inattentive typeTake 1 capsule (30 mg) by mouth Daily Do not crush or chew. Take with the 10mg daily 30 capsule 5Active amphetamine-dextroamphetamine XR (Adderall XR) 10 MG 24 hr capsule Indications:Attention deficit hyperactivity disorder (ADHD), predominantly inattentive type,Bipolar disorder, in partial remission, most recent episode manic (HCC),Agoraphobia with panic attacksTake 1 capsule (10 mg) by mouth in the morning. Do not crush or chew. Take with the 30mg tablet. 30 capsule 5Active predniSONE (Deltasone) 10 MG tablet Indications:Moderate persistent asthma with acute exacerbation (HCC)Take 4 tablets (40 mg) by mouth Daily for 4 days, THEN 3 tablets (30 mg) Daily for 4 days, THEN 2 tablets (20 mg) Daily for 4 days, THEN 1 tablet (10 mg) Daily for 4 days. 40 tablet /12/2024Expired amphetamine-dextroamphetamine XR (Adderall XR) 30 MG 24 hr capsule Indications:Attention deficit hyperactivity disorder (ADHD), predominantly inattentive typeTake 1 capsule (30 mg) by mouth Daily Do not crush or chew. Take with the 10mg daily 30 capsule Discontinued(Reorder) amphetamine-dextroamphetamine XR (Adderall XR) 10 MG 24 hr capsule Indications:Attention deficit hyperactivity disorder (ADHD), predominantly inattentive type,Bipolar disorder, in partial remission, most recent episode manic (HCC),Agoraphobia with panic attacksTake 1 capsule (10 mg) by mouth in the morning. Do not crush or chew. Take with the 30mg tablet. 30 capsule Discontinued(Reorder) Active Problems ProblemNoted DateDiagnosed DateChest pain01/06/2025 Assessment & Plan (01/06/2025 11:35 AM EDT): Stress Echo last year from [facility] Pepcid AC twice a day Type 2 diabetes mellitus without complication, without long-term current use of junvwft5401/06/2025 Assessment & Plan (01/06/2025 11:42 AM EDT): Last A1c was 8.5 Atypical fivqehgg45/07/2025Morbid (severe) obesity due to excess calories 12/16/2024 Assessment & Plan (12/16/2024 10:11 AM EDT): Weight loss Impaired fasting nquxpbg8012/16/2024Obesity, class Assessment & Plan (12/16/2024 10:11 AM EDT): Probably related to Diabetes Generalized anxiety giygpdaj56/21/2025Obsessive-compulsive yfnyyjwu85/21/2025 Phurnxveceqhlkom29/21/2025Right ovarian cyst12/12/2024Lumbar radiculopathy 12/09/2024 Assessment & Plan (12/16/2024 10:02 AM EDT): Has had shots Encouraged weight lost EMG shows Left L4 moderate radiculopathy Pelvic floor yfvkjrlcbme09/20/2025Extruding bcnjiy2609/25/2024Fall at home 09/10/2024 Assessment & Plan (09/10/2024 2:01 PM EDT): Tripped over kids onto the floor Alcohol use, unspecified with alcohol-induced psychotic disorder, unspecified 09/02/2024lcohol withdrawal gmbqahyr50/12/8451Jkctdurwnjfp52/12/2025Sinus uhcmcroinah37/12/2025 Assessment & Plan (09/02/2024 3:45 PM EDT): On metoprolol Recommend being off Adderall Major depressive disorder, recurrent, gmlqojht05/29/2025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 Assessment & Plan (08/01/2024 2:57 PM EDT): Some improvement Agoraphobia with panic wyscest3206/06/2024 Assessment & Plan (06/06/2024 4:08 PM EST): Could be situational Borderline qzemosyl31/13/2025sthmatic bronchitis with acute exacerbation 04/16/2024 Assessment & Plan (04/16/2024 10:34 AM EST): I discussed with patient that while on prednisone, do not take any NSAIDs like Ibuprofen, Naprosyn,Alleve or motrin. Watch for any side effects like abdominal pain and nausea. Take the prednisone with food or milk. Prednisone may increase appetite. While on prednisone, watch for any sugar elevations. Kitaqpl4404/16/2024ain and swelling of left nrfxsuco48/11/2024ody mass index (BMI) 36.0-36.9, adult02/06/2024 Assessment & Plan (12/16/2024 10:12 AM EDT): Can't exercise due to chip Assessment & Plan (02/06/2024 9:24 AM EDT): Needs life style modification. Exercise Routinely Low Calorie Diet F/U in 4 weeks 3500 calorie deficit = 1lb weight loss Small portions TIming of meals Reduce Carbohydrate Intake High Protein Diet Localized edema02/06/2024ervical vnwferkmsvshi72/03/2024 Assessment & Plan (12/26/2023 3:20 PM EDT): [...] and xrays Eventual MRI Well adult health check12/04/2023 Assessment & Plan (01/06/2025 11:34 AM EDT): Modest Alcohol consumption No Tobacco Seat Belt use Exercise Regularly No Text Drive Social Accountability Assessment & Plan (12/04/2023 3:11 PM EDT): Modest Alcohol consumption No Tobacco Seat Belt use Exercise Regularly No Text Drive Social Accountability Tinea10/03/2023Weight gain10/03/2023 Assessment & Plan (12/16/2024 10:03 AM EDT): Has seen [employer]ator in the past. Glucose fxxgchqnegp30/11/0694Llpzxmqutjx30/11/4528Gfjyuuicwwhhs17/26/2023History of acute jnmecajwhbwa11/26/2023 Assessment & Plan (04/18/2023 2:57 PM EST): Liver Specialist follow-up is May 01 Has seen Ship Propeller Finisher x 2 Has seen a specialist for Diverticulosis and also has Gastroparesis Lipase was still elevated from 04/11/2023 History of rjhwswdjsigzwvm54/26/2023 Assessment & Plan (04/18/2023 2:58 PM EST): Still with loose stools Avoid fatty meals Cough04/18/2023 Assessment & Plan (04/18/2023 3:01 PM EST): Had cat exposure has Strep Could be post nasal drainage Anaphylactic slamosqf26/26/2023alculus of gallbladder without cholecystitis without /30/2023cute biliary pancreatitis without infection or necrosis ([facility]-H[facility])03/21/2023History of COVID-1916365Zdvgyawinn55/16/2023 Ogynhjhas47/22/2023cute nonintractable cypqxknu23/22/2023 Assessment & Plan (12/26/2023 3:14 PM EDT): Could be migraine CT scan of head last December 2022 was normal. Discussed with patient that if WRST headache of her life she needs to go to ER for possible subarachnoid hemorrhage Recurrent UTI12/12/20223520Taajdhmndwxmt72/12/2023Tremors of nervous system 09/23/2022 Assessment & Plan (04/01/2024 8:59 AM EST): Avoid Stimulants: Caffeine, otc Decongestants Try Klonopin instead of Xanax We can't do Beta Blockers because of asthma If NB consider Neurology CT scan from 12/2022 was normal Muwexdv2009/23/2022 Assessment & Plan (09/02/2024 3:39 PM EDT): [...] long distances while on medicines. Attention deficit hyperactivity disorder (ADHD), predominantly inattentive type 09/23/2022 Assessment [...] disorder, in partial remission, most recent episode manic09/23/2022 Assessment & Plan (09/02/2024 3:42 PM EDT): Patient is required to return to work in house. Patient will be seeing [facility] and they will start to manage the psychiatric medicines Assessment & Plan (06/06/2024 4:07 PM EST): Coping skills with counselor Diverticular disease of colon09/23/20229921Vinsdsbmy36/02/2023Elevated liver enzymes 09/23/2022Exercise induced oltxulngfiul72/02/2023Finding of above normal blood mxtacopr56/02/2023History of wyqsuqofoqge24/02/3930Pmfshbritxjro71/02/2023 Hjqcqknbzjjlzb01/02/0236Bjybaakl61/02/2023Irritable bowel syndrome with fudohbsupdkl51/02/2023Mild intermittent asthma without usrmuxyvklge60/02/2023 Assessment & Plan (04/01/2024 9:00 AM EST): Add Singulair Mood khwlbu6309/23/2022 Assessment & Plan (09/02/2024 3:39 PM EDT): Ultimately will see someone who does medicines. Bilateral epljgqjqssdzbyw08/02/2023Nonalcoholic steatohepatitis (ENGLISH)09/23/2022 Assessment & Plan (12/16/2024 10:09 AM EDT): F/Up with GI Numbers are improved since stopping alcohol Other specified abnormal findings of blood qelvepjha11/02/2023oor concentration 09/23/2022Sacroiliitis, not elsewhere wagykrtkit61/02/2023Skin pain09/23/2022 Thyroid gzjfnlqgsmy39/02/8544Vajdxvnyzshwmuwuoakf82/10/2022therosclerosis of coronary artery without angina /25/2022therosclerosis of both carotid rrvswozj28/26/2021therosclerosis of aorta06/16/2020Generalized idiopathic epilepsy and epileptic syndromes, not intractable, without status epilepticus 11/22/2019Gastroesophageal reflux disease without gfxqcntsqui02/17/2020 Osteoarthritis of knee06/14/2019Vitamin D ddjpzogaah90/23/2020 Assessment & Plan (12/04/2023 3:16 PM EDT): Has supplement PTSD (post-traumatic stress disorder)02/24/2015 Assessment & Plan (12/16/2024 10:12 AM EDT): S/p rehab Resolved Problems ProblemNoted DateDiagnosed DateResolved DateKnee laceration, left, sequela /Laceration of right knee Assessment & Plan (09/10/2024 2:04 PM EDT): Add Probiotic to help replenish the good bacteria that are destroyed by the Antibiotics Florastor Florajen Align or try Activia in Yogurt Probiotics reduce the risk of antibiotic induced diarrhea Watch for secondary infections Sprain of anterior talofibular ligament of right ankle/ Assessment & Plan (04/16/2024 10:33 AM EST): Dr. Duong Canceled surgery due to hear issues, but lpn care manager cleared and already has had 2 surgeries last year with no complication Injury of right ankleEncounter for postoperative care DysuriaUrinary /21/2023 02/06/2023UTI (urinary tract infection)Severe acute respiratory syndrome coronavirus 2 (SARS-CoV-2) spdoorom48 Abnormal okevsmullu53iverticulitis Diverticulitis of large intestine without perforation or abscess without lnrjitxa68Maxillary rqhdkijjw91Sinusitis Obesity (BMI 30.0-34.9)Sciatica SmokerTension kmepmmxv85/02/2023 02/06/2023 Encounters DateTypeDepartmentCare ZsvrJqabexgrnzm65/06/2025 3:00 PM ESTProcedure Visit [facility] [address] [place] [address] [place] [phone] Ayleen Krishnamurthy PA Well woman exam with routine gynecological exam; H/O: hysterectomy; Abnormal urine odor; BV (bacterial vaginosis)02/27/2025Refill [facility] [address] [facility] [address] [place] [address] Sandy Hammond PA Attention deficit hyperactivity disorder (ADHD), predominantly inattentive type; Bipolar disorder, in partial remission, most recent episode manic (HCC); Agoraphobia with panic uiobcod1202/20/2025bstract [facility] [address] [facility] [address] Milton Duvall, DPM FACFAS 02/13/2025Telephone [facility] [address] [facility] [address] [place] [address] Jatin Cabrera MD 02/12/2025 4:40 PM EDTOffice Visit [facility] [address] [facility] [address] Milton Duvall, DPM FACFAS Foot drop, left (Primary Dx); Other synovitis and tenosynovitis, right ankle and foot; Sprain of anterior talofibular ligament of right ankle, subsequent encounter; Other enthesopathy of right foot and ankle02/12/2025Telephone [facility] [address] [place] [address] Milton Duvall, DPM FACFAS NEEDS SCANNED - amboo flowsheet [facility] [address] [place] [address] Milton Duvall, DPM FACFAS 02/06/2025linisync Result Encounter [facility] External Department Unsolicited Provider, Generic External Data 01/22/2025Refill [facility] [address] [facility] [address] [place] [address] Sandy Hammond PA Attention deficit hyperactivity disorder (ADHD), predominantly inattentive type; Bipolar disorder, in partial remission, most recent episode manic (HCC); Agoraphobia with panic bbwirod4001/18/2025Refill [facility] [address] [facility] [address] [place] [address] Emearld Sanchez MD Major depressive disorder, recurrent, moderate (HCC)01/16/2025bstract [facility] [address] [facility] [address] [place] [address] Emerald Sanchez MD 01/15/2025 4:00 PM EDTClinical Support [facility] [address] [place] [address] Milton Duvall, DPM FACFAS Other synovitis and tenosynovitis, right ankle and foot (Primary Dx); Other enthesopathy of right foot and ankle01/15/2025 3:00 PM EDTClinical Support [facility] [address] [facility] [address] [place] [address] Sandy Hammond, PA Type 2 diabetes mellitus without complication, without long-term current use of insulin ([facility])01/15/20253649Pkgebu77/23/2025 6:00 PM EDTAncillary Procedure [facility] [address] [place] [place] [address] Lumbar kjazvlsrctnoe11/23/9924Jxaqoo72/23/2025bstract [facility] [address] [facility] [address] [place] [address] Emerald Sanchez MD 01/13/2025Telephone [facility] [address] [facility] [address] [place] [address] Emerald Sanchez MD 01/13/2025Results Follow-Up [facility] [address] [facility] [address] [place] [address] Emerald Sanchez MD ALL CBC WITH AUTO DIFF, ALL LIPID PROFILE (FASTING)01/10/2025bstract [facility] [address] [facility] [address] [place] [address] Samuel Greenfield DO 01/10/2025Telephone [facility] [address] [place] [address] [place] [address] Ashley Ma MA 01/09/2025Telephone [facility] [facility] [address] [place] [address] Emerald Sanchez MD 01/09/20259429Peqcpd83/18/2025linisync Result Encounter [facility] External Department Unsolicited Emerald Sanchez MD 01/08/2025Refill [facility] [address] [facility] [address] [place] [address] Emerald Sanchez MD Obesity (BMI 35.0-39.9 without comorbidity)01/07/2025Refill [facility] [address] [facility] [address] [place] [address] Emerald Sanchez MD Obesity (BMI 35.0-39.9 without comorbidity)01/07/2025Telephone [facility] [address] [facility] [address] [place] [address] Emerald Sanchez MD 01/06/2025 10:30 AM EDTOffice Visit [facility] [address] [facility] [address] [place] [address] Emerald Sanchez MD Well adult health check (Primary Dx); Chest pain, unspecified type; Elevated liver enzymes; Type 2 diabetes mellitus without complication, without long-term current use of insulin (HCC)01/06/2025bstract [facility] [address] [facility] [address] [place] [address] Emerald Sanchez MD 01/06/2025amboo flowsheet [facility] [address] [facility] [address] [place] [address] Emerald Sanchez MD 01/06/20252249Wlbyvg97/08/2025 1:20 PM EDTClinical Support [facility] [address] [place] [address] Milton Duvall, DPM FACFAS Other synovitis and tenosynovitis, right ankle and foot (Primary Dx); Right foot pain; Other enthesopathy of right foot and ankle12/30/2024amboo flowsheet [facility] [address] [place] [address] Milton Duvall, DPM FACFAS 12/29/20242624Wnjibi41/04/2025 1:20 PM EDTOffice Visit [facility] [address] [facility] [address] [place] [address] Jatin Cabrera MD Lumbar radiculopathy (Primary Dx); Numbness and tingling; Atypical qxgxjada27/04/7754Vfyvdq54/29/2025Results Follow-Up [facility] [address] [facility] [address] [place] [address] Sandy Hammond PA MLR HEMOGLOBIN A1C, CCF CMP (CMP) (FOR REMOTE [facility] USE), TSH W/REFLEX T4, Additional followed-up results: 8012/20/2024bstract [facility] [address] [facility] [address] [place] [address] Emerald Sanchez MD 12/17/2024bstract [facility] [address] [facility] [address] [place] [address] Emerald Sanchez MD 12/16/2024 9:45 AM EDTOffice Visit [facility] [address] [facility] [address] [place] [address] Emerald Sanchez MD Nonalcoholic steatohepatitis (ENGLISH) (Primary Dx); PTSD (post-traumatic stress disorder) ; Major depressive disorder, recurrent, moderate (HCC); Lumbar radiculopathy; Weight gain; Borderline diabetes; Morbid (severe) obesity due to excess calories ([facility]-HCC); Impaired fasting glucose; Obesity, class 2; Body mass index (BMI) 36.0-36.9, adult12/16/2024Telephone [facility] [address] [place] [address] Emerald Sanchez MD dose correction on med12/16/20245099Vysnpc21/25/2025Telephone [facility] [address] [place] [address] Sandy Hammond PA 12/13/2024 10:05 AM EDTAncillary Procedure [facility] [address] [place] [address] 12/13/2024 9:40 AM EDTOffice Visit [facility] [address] [place] [address] Milton Duvall, DPM FACFAS Sprain of calcaneofibular ligament of right ankle, initial encounter (Primary Dx); Right foot pain; Other synovitis and tenosynovitis, right ankle and foot; Other enthesopathy of right foot and ankle12/13/2024bstract [place] [address] [place] [address] Emerald Sanchez MD 12/13/2024bstract [place] [address] [place] [address] Emerald Sanchez MD 12/12/2024 10:30 AM EDTOffice Visit [address] [place] [address] Sandy Hammond PA Elevated liver enzymes (Primary Dx); Nephrocalcinosis; Bilateral nephrolithiasis; Right ovarian cyst; Hypokalemia; Weight gain; Attention deficit hyperactivity disorder (ADHD), predominantly inattentive type ; History of alcohol dependence (HCC); Impaired fasting glucose; Other fatigue; Anxiety; Other chronic pain12/12/2024bstract [facility] [address] [facility] [address] [place] [address] Emerald Sanchez MD 12/12/2024bstract [facility] [address] [facility] [address] [place] [address] Emerald Sanchez MD 12/12/2024linisync Result Encounter [facility] External Department Unsolicited Sandy Hammond PA 12/12/2024amboo flowsheet [facility] [address] [facility] [address] [place] [address] Sandy Hammond PA 12/12/20241695Xspuzh51/20/6287Mvsezm87/19/2025Patient Outreach [facility] [address] [place] [address] Gifty Mireles LPN 12/10/2024bstract [facility] [address] [place] [address] Gifty Mireles LPN 12/09/2024 1:00 PM EDTProcedure Visit [facility] [address] [place] [address] [place] [address] Lumbar fdnzcpdthzaat65/18/2025Travelfrom Last 3 Months Immunizations ImmunizationAdministration DatesNext LyfENH5112/28/1993,12/07/1992,06/09/1992, 06/20/1990HPV, Xqguvgxdofdq12/12/2007Hep B, Adolescent or Vmtrbxdau61/14/2007, 11/02/2006,02/20/1998Influenza, Uahtxwcsjhq00/19/2021,03/16/2020,01/08/2018 Influenza, injectable, MDCK, preservative free, /23/2020, 02/01/2017Influenza, injectable, yxnxjwfpzwbd35/17/2018Influenza, injectable, quadrivalent, preservative free02/09/2021,01/08/2018,03/25/2016MMR12/07/1992, 06/09/1992Meningococcal ACWY, qrgsgalolat39/12/2007Meningococcal SVD5O7011/02/2006 OPV12/07/1992,06/09/1992,05/21/1990,01/10/1989Tdap09/06/2024,02/05/2010Varicella 10/31/1990 Family History Medical HistoryRelationNameCommentsAccidental deathBrotherErnie Becca Known ProblemsDaughter 1No Known ProblemsDaughter 2No Known ProblemsDaughter 3No Known ProblemsFatherDiabetesMaternal GrandmotherMariaAnesthesia problemsMotherIrma HyperlipidemiaMotherIrmaHypertensionMotherIrmaMigrainesOther 2mother's side RelationNameStatusCommentsBrotherErnie GarciaDaughter 1AliveDaughter 2Alive Daughter 3AliveFatherMaternal GrandmotherMariaMotherIrmaAliveOther 1SpouseAlive Other 2mother's side Social History Tobacco UseTypesPacks/DayYears UsedDateSmoking Tobacco: Every DayCigarettes Smokeless Tobacco: Never Tobacco Cessation:Ready to Q uit: Not Asked; Counseling Given: Yes Alcohol UseStandard Drinks/WeekCommentsYes2 (1 standard drink = 0.6 [...] relatives?Once a week05/09/2024How often do you attend samaritan or zoroastrianism services?Never05/09/2024Do you belong to any clubs or organizations such as samaritan groups, unions, [employer] or athletic groups, or school groups?Yes05/09/2024How often do you attend meetings of the clubs or organizations you belong to?Never05/09/2024re you , , , , never , or living with a partner?Idiligo9705/09/2024UDIT-C AnswerDate RecordedQ1: How often do you have a drink containing alcohol?2-4 times a month05/09/2024Q2: How many drinks containing alcohol do you have on a typical day when you are drinking?1 or Q3: How often do you have six or more drinks on one occasion?Less than yaumnvn7405/09/2024Overall Financial Resource Strain (CARDIA)AnswerDate RecordedHow hard is it for you to pay for the very basics like food, housing, medical care, and heating?Not hard at all 05/09/2024PHQ-2AnswerDate RecordedPatient Health Questionnaire-2 Score4 01/06/2025[facility] [place] [facility] Occupational Health - Occupational Stress QuestionnaireAnswerDate [...] steady place to sleep or slept in crystal riverelter (including now)?No04/18/2023Housing Stability Vital SignAnswerDate RecordedIn the last 12 months, was there a time when you were not able to pay the mortgage or rent on time?No05/09/2024In the past 12 months, how many times have you moved where you were living?t any time in the past 12 months, were you homeless or living in a care home (including now)?No 05/09/2024CommentsNoSex and Gender InformationValueDate RecordedSex Assigned at BirthNot on fileLegal KdgMofhup12/15/2023 7:29 PM EDTGender Identity Not on fileSexual OrientationNot on file Last Filed Vital Signs Vital SignReadingTime TakenCommentsBlood Cobzylvd237/7411 3:20 PM EST Aibdc6356 4:59 PM JMCAlgnlgrgylx11.5 ??C (97.7 ??F)04/18/2024 4:42 PM ESTRespiratory Cdag371001/06/2025 11:01 AM EDTOxygen Zqabjnamaq81%01/06/2025 11:01 AM EDTInhaled Oxygen Concentration--Liaixs73.3 kg (210 lb)02/27/2025 3:20 PM EST Bppbpj118.5 cm (5' 2 )02/27/2025 3:20 PM ESTBody Mass Index38.41104/29/2024 3:20 PM EST Plan of Treatment DateTypeDepartmentCare Team (Latest Contact Info)Cchbystarwa27/10/2025 4:30 PM ESTClinical Support [facility] [address] [place] [phone] Milton Duvall, DPM FACFAS [address] [facility] [place] [address] 03/14/2025 11:40 AM ESTOffice Visit [facility] [address] [facility] [address] [place] [address] Jatin Cabrera MD [address] [facility] [address] [phone] 03/18/2025 9:00 AM ESTOffice Visit [facility] [address] [facility] [address] [place] [phone] Emerald Sanchez MD [address] [facility] [address] [place], [place] [id number] Health MaintenanceDue DateLast DoneCommentsDiabetes: Retinopathy Screening 1998Pneumococcal Vaccine: Pediatrics (0 to 5 Years) and At-Risk Patients (6 to 64 Years) (1 of 2 - PCV)09/29/2007Diabetes: Urine Protein Screening /, 3COVID-19 Vaccine ( season)2024 11/02/2021, 04/29/2021, 03/03/2021Influenza Vaccine (#1)510/, 02/09/2021, 03/16/2020, Additional history existsDiabetes: Hemoglobin A1C 509/, 04/03/2024, 10/03/2023, Additional history existsCervical Cancer ScreeningDiscontinuedPap IuykrWfxsyuikpsxm07/27/2024, 04/20/2022, 04/15/2021HPV/CotestDiscontinued Goals GoalPatient Goal TypeAssociated ProblemsRecent ProgressPatient-Stated?Author Help patient manage antidepressant medication Care PlanPatient on antidepressant monitoring Emerald Rain MD Baseline PHQ-9 Care PlanBaseline PHQ-9Emerald Underwood MD Procedures Procedure NamePriorityDate/TimeAssociated DiagnosisCommentsPOCT URINALYSIS APWIDXVKBjndfbu28/06/2025 3:22 PM EST Abnormal urine odor MLR HEMOGLOBIN E7DLwguhwc88/16/2025 10:45 AM EDT ALL LIPID PROFILE (FASTING)Rzknpdx0202/06/2025 10:45 AM EDT [facility] CMP (CMP) (FOR REMOTE [facility] USE)Xeouqaz3002/06/2025 10:45 AM EDT POCT GLYCOSYLATED HEMOGLOBIN (HGB A1C)Enbvtse8701/15/2025 3:30 PM EDT Type 2 diabetes mellitus without complication, without long-term current use of insulin (HCC) MR LUMBAR SPINE WO LJGOGSOVQmqfrsf24/23/2025 7:12 PM EDT Lumbar radiculopathy ACUTE XMEWSKEATKyllcyi20/18/2025 12:25 PM EDT ALL LIPID PROFILE (FASTING)Ampwmqh9101/09/2025 12:25 PM EDT ALL CBC WITH AUTO XZZDWqkypvl98/18/2025 12:25 PM EDT XR FOOT 3+ VIEWS KMZMHPmeqqta12/22/2025 10:02 AM EDT Right foot pain Other synovitis and tenosynovitis, right ankle and foot METRO VITAMIN B1, WHOLE VFJYNSxdrica20/21/2025 11:40 AM EDT ALL VITAMIN L8Piyobte01/21/2025 11:40 AM EDT QBWZWOXZPVFPyouaxg43/21/2025 11:40 AM EDT VITAMIN R45Xgzvxhw85/21/2025 11:40 AM EDT ALL FOLIC UEVPTzwokeh39/21/2025 11:40 AM EDT TBH VITAMIN D 25 JCXxsqaxz16/21/2025 11:40 AM EDT METRO IRON AND YOLTMzellit79/21/2025 11:40 AM EDT ALL CBC WITH AUTO TQZEXhzahks42/21/2025 11:40 AM EDT TSH W/REFLEX Y7Hjshofu55/21/2025 11:40 AM EDT [facility] CMP (CMP) (FOR REMOTE [facility] USE)Kodxtve1412/12/2024 11:40 AM EDT MLR HEMOGLOBIN O4ZEnexvmu16/21/2025 11:40 AM EDT [facility] AMB EMG 1 RDLNVTJKSBTwjvtnz71/18/2025 9:00 AM EDT Numbness and tingling PAP ENCJDGjselly93/27/2024 12:00 AM ESTMICROALBUMIN / CREATININE URINE RATIO Szvkhgf0106/02/2022 from Last 3 Months or Most Recently Relevant to Health Maintenance Results * (ABNORMAL) POCT urinalysis dipstick manually resulted (02/27/2025 3:22 PM EST) ComponentValueRef RangeTest MethodAnalysis TimePerformed AtPathologist SignatureColor, UAYellowClarity, UACloudyGlucose, UA2+Negative - 2000(110) ++++ mg/dLBilirubin, UANegativeNegative - 4(70) +++ mg/dLKetones, UANegative Negative - 160(16) ++++ mg/dLSpec Grav, UA1.0151 - 1.03Blood, UANegative Negative - 50 Edgard/mcLpH, UA6.05 - 9Protein, UANegativeNegative - 1999(20) ++++ mg/dLUrobilinogen, UA1.00.2 - 12 mg/dLLeukocytes, UA1+Negative - 500+++ Giana/mcLNitrite, UANegativeNegative - PositiveSpecimen (Source)Anatomical Location / LateralityCollection Method / VolumeCollection TimeReceived Time Urine02/27/2025 3:22 PM EST Narrative Authorizing ProviderResult TypeResult StatusAmy [facility] TEST ENTER/EDIT ORDERABLESFinal Result * MLR HEMOGLOBIN A1C (02/06/2025 10:45 AM EDT) Only the most recent of2 resultswithin the time period is included. ComponentValueRef RangeTest MethodAnalysis TimePerformed AtPathologist Signature GLYCOHEMOGLOBIN A1C6.14.5 - 6.2 %TBHComment: ADA RECOMMENDED LIMIT 4.0 - 6.0 ADA THERAPEUTIC TARGET < 7.0 ACTION SUGGESTED > 7.0 ESTIMATED AVERAGE HWMAXJG875lb/dLTBHSpecimen (Source)Anatomical Location / LateralityCollection Method / VolumeCollection TimeReceived Time02/06/2025 10:45 AM EDT1 10:53 AM EDT Narrative CLINISYNC - 02/06/2025 12:29 PM EDT Authorizing ProviderResult TypeResult StatusGeneric External Data Provider CLINISYNCFinal ResultPerforming OrganizationAddressCity/State/ZIP CodePhone Number CLINISYNC TBH * (ABNORMAL) [facility] CMP (CMP) (FOR REMOTE [facility] USE) (02/06/2025 10:45 AM EDT) Only the most recent of2 resultswithin the time period is included. ComponentValueRef RangeTest MethodAnalysis TimePerformed AtPathologist Signature LPEAQR507480 - 145 mmol/LTBHPOTASSIUM4.43.5 - 5.1 mmol/BALWYSFHATOT02027 - 107 mmol/LTBHCARBON HGFXKRP03.921.0 - 32.0 mmol/LTBHANION GAP13.6DUSQLXLVMA772(H)74 - 106 mg/dLTBHBLOOD UREA AOWSIISX64.07.0 - 18.0 mg/dLTBHCREATININE0.890.55 - 1.02 mg/dLTBHTBH EGFR-AF CONGOLESE>60>=60 mL/min/1.73m 2TBHTBH EGFR-NON AF CONGOLESE>60>=60 mL/min/1.73m 2TBHBUN CREATININE RATIO18.1TTEOSIQQZK9.28.5 - 10.1 mg/dLTBHBILIRUBIN TOTAL0.30.2 - 1.0 mg/dLTBHASPARTATE AMINO VEQVUSOEYCF5925 - 37 U/LTBHALANINE MGFRBUUATDAGMZGH64(H)14 - 59 U/LTBHALKALINE JIXNTYFIVRZ60293 - 116 U/LTBHTOTAL PROTEIN7.46.4 - 8.2 g/dLTBHALBUMIN LEVEL3.73.4 - 5.0 g/dLTBHGLOBULIN 3.7g/dLTBHALBUMIN GLOBULIN RATIO1.0TBHSpecimen (Source)Anatomical Location / LateralityCollection Method / VolumeCollection TimeReceived Time02/06/2025 10:45 AM EDT1 10:53 AM EDT Narrative CLINISYNC - 02/06/2025 12:12 PM EDT Authorizing ProviderResult TypeResult StatusGeneric External Data Provider CLINISYNCFinal ResultPerforming OrganizationAddressCity/State/ZIP CodePhone Number [facility] * (ABNORMAL) ALL LIPID PROFILE (FASTING) (02/06/2025 10:45 AM EDT) Only the most recent of2 resultswithin the time period is included. ComponentValueRef RangeTest MethodAnalysis TimePerformed AtPathologist Signature AJSNPBXPGSPCM938<=150 mg/rLALNVLRPFKOYEAY838(H)<=200 mg/dLTBHHDL QBCLJSIAQYY72 (H)40 - 60 mg/dLTBHComment: > or =60 mg/dl - LOW CARDIOVASCULAR RISK <40 mg/dl - HIGH CARDIOVASCULAR RISK LDL CHOLESTEROL OTAZSELQFL595.0mg/dLTBHComment: <100 mg/dl OPTIMAL 100-129 mg/dl NEAR OR ABOVE OPTIMAL 130-159 mg/dl BORDERLINE HIGH 160-189 mg/dl HIGH >190 mg/dl VERY HIGH VLDL SSAOVXSYKQX86.6mg/dLTBHCHOL HDL RATIO2.8TBHComment: 3.3 - 4.4 ?? LOW RISK 4.4 - 7.1 ?? AVERAGE RISK 7.1 - 11.0 ??MODERATE RISK >11.0 HIGH RISK Specimen (Source)Anatomical Location / LateralityCollection Method / Volume Collection TimeReceived Time02/06/2025 10:45 AM EDT1 10:53 AM EDT Narrative CLINISYNC - 02/06/2025 12:12 PM EDT Authorizing ProviderResult TypeResult StatusGeneric External Data Provider CLINISYNCFinal ResultPerforming OrganizationAddressCity/State/ZIP CodePhone Number CLINISYNC [facility] * (ABNORMAL) POCT glycosylated hemoglobin (Hb A1C) docked device (01/15/2025 3:30 PM EDT)ComponentValueRef RangeTest MethodAnalysis TimePerformed At Pathologist SignatureHemoglobin A1C5.4Specimen (Source)Anatomical Location / LateralityCollection Method / VolumeCollection TimeReceived TimeBloodVenous blood specimen / Crnwxqw6401/15/2025 3:30 PM EDT Narrative Authorizing ProviderResult TypeResult StatusSandy Hammond [facility] TEST ENTER/EDIT ORDERABLESFinal Result * MR lumbar spine wo contrast (01/14/2025 [...] Fuad Stern DO Authorizing ProviderResult TypeResult StatusBrebrent Cabrera MDShaniqua MRI PROCEDURES Final Result * ACUTE HEPATITIS (01/09/2025 12:25 PM EDT)ComponentValueRef RangeTest Method Analysis TimePerformed AtPathologist SignatureHEP A AB, IGMNegativeNegativeTBH Comment: A negative anti-HAV IgM result suggests no recent or current HAV infection. HBSAG SCREENNegativeNegativeTBHHEP B CORE AB, IGMNegativeNegativeTBHHCV ABNon ReactiveNon ReactiveTBHINTERPRETATION:Comment.TBHComment: Not infected with HCV unless early or acute infection is suspected (which may be delayed in an immunocompromised individual), or other evidence exists to indicate HCV infection. Performed at: ??CB - [facility] [address], [place], [place] ??[id number] Interpreter Translator: Demarcus Moreno PhD, Phone: ??[phone] Specimen (Source)Anatomical Location / LateralityCollection Method / Volume Collection TimeReceived Time01/09/2025 12:25 PM EDT01/09/2025 12:28 PM EDT Narrative CLINISYNC - 01/10/2025 5:07 AM EDT Authorizing ProviderResult TypeResult StatusGeneric External Data ProviderLAB BLOOD ORDERABLESFinal ResultPerforming OrganizationAddressCity/State/ZIP Code Phone Number [facility] * (ABNORMAL) ALL CBC WITH AUTO DIFF (01/09/2025 12:25 PM EDT) Only the most recent of2 resultswithin the time period is included. ComponentValueRef RangeTest MethodAnalysis TimePerformed AtPathologist Signature TBH WBC10.34.0 - 11.0 10 3/uLTBHTBH RBC4.11(L)4.20 - 5.40 10 6/uLTBHTBH HGB13.3 12.0 - 16.0 g/dLTBHTBH HCT39.236.0 - 48.0 %TBHTBH MCV95.481.0 - 99.0 fLTBHTBH MCH32.426.7 - 34.0 pgTBHTBH MCHC33.929.9 - 35.2 g/dLTBHTBH RDW12.711.0 - 15.0 % TBHTBH KCV114608 - 450 10 3/uLTBHTBH MPV9.99.5 - 13.5 fLTBHNEUTROPHILS PERCENT AUTO64.143.0 - 75.0 %TBHLYMPHOCYTES PERCENT AUTO24.620.5 - 60.0 %TBHMONOCYTES PERCENT AUTO5.21.7 - 12.0 %TBHTBH EO %3.00.9 - 7.0 %TBHBASOPHILS PERCENT AUTO0.5 0.2 - 2.0 %TBHIMMATURE GRANULOCYTES PCT AUTO2.6(H)0.0 - 0.5 %TBHNEUTROPHILS ABSOLUTE AUTO6.6(H)1.4 - 6.5 10 3/uLTBHLYMPHOCYTES ABSOLUTE AUTO2.51.2 - 3.8 10 3/uLTBHMONOCYTES ABSOLUTE AUTO0.50.3 - 0.8 10 3/uLTBHTBH EO #0.30.0 - 0.7 10 3/uLTBHBASOPHILS ABSOLUTE AUTO0.10.0 - 0.1 10 3/uLTBHIMMATURE GRANULOCYTES ABS AUTO0.27(H)0.00 - 0.03 10 3/uLTBHSpecimen (Source)Anatomical Location / LateralityCollection Method / VolumeCollection TimeReceived Time01/09/2025 12:25 PM EDT01/09/2025 12:28 PM EDT Narrative CLINISYNC - 01/09/2025 12:35 PM EDT Authorizing ProviderResult TypeResult StatusEmerald Sanchez MDCLINISYNCFinal Result Performing OrganizationAddressCity/State/ZIP CodePhone Number [facility] * XR foot 3+ views right (12/13/2024 10:02 AM EDT)Anatomical RegionLaterality ModalityLower Extremities, FootRightRadiographic ImagingSpecimen (Source) Anatomical Location / LateralityCollection Method / VolumeCollection Time Received Time Narrative 12/14/2024 6:39 AM EDT Imaging Result: Radiographs: Three views were taken today AP/MORT/LAT Ankle: ??No fractures or dislocations seen mild swelling circumferentially around the ankle. ?? Small leanne fracture noted of the medial aspect of the medial malleolus. Authorizing ProviderResult TypeResult StatusMilton Duvall DPM FACFASIMG XR PROCEDURESFinal Result * VITAMIN B12 (12/12/2024 11:40 AM EDT)ComponentValueRef RangeTest Method Analysis TimePerformed AtPathologist SignatureVITAMIN [id number] - 1245 pg/mL TBHComment: Performed at: ?? - [facility] [address] ??[id number] Interpreter Translator: Demarcus Moreno PhD, Phone: ??[phone] Specimen (Source)Anatomical Location / LateralityCollection Method / Volume Collection TimeReceived Time12/12/2024 11:40 AM EDT12/12/2024 11:47 AM EDT Narrative CLINISYNC - 12/13/2024 4:08 AM EDT Authorizing ProviderResult TypeResult StatusSandy Bob Hemmer PALAB BLOOD ORDERABLESFinal ResultPerforming OrganizationAddressCity/State/ZIP CodePhone Number [facility] * TSH W/REFLEX T4 (12/12/2024 11:40 AM EDT)ComponentValueRef RangeTest Method Analysis TimePerformed AtPathologist SignatureTSH3.2230.358 - 3.740 uIU/mLTBH Specimen (Source)Anatomical Location / LateralityCollection Method / Volume Collection TimeReceived Time12/12/2024 11:40 AM EDT12/12/2024 11:47 AM EDT Narrative CLINISYAK - 12/12/2024 12:53 PM EDT Authorizing ProviderResult TypeResult StatusSandy Bob Hemmer PALAB BLOOD ORDERABLESFinal ResultPerforming OrganizationAddressCity/State/ZIP CodePhone Number [facility] * TRANSFERRIN (12/12/2024 11:40 AM EDT)ComponentValueRef RangeTest Method Analysis TimePerformed AtPathologist PcjmeydtaSXEEDIZKRQL306805 - 364 mg/dLTBH Comment: Performed at: ??CB - [facility] [address] ??[id number] Interpreter Translator: Demarcus Moreno PhD, Phone: ??[phone] Specimen (Source)Anatomical Location / LateralityCollection Method / Volume Collection TimeReceived Time12/12/2024 11:40 AM EDT12/12/2024 11:47 AM EDT Narrative CLINISYAK - 12/13/2024 4:08 AM EDT Authorizing ProviderResult TypeResult StatusSandy Bob Hemmer PALAB BLOOD ORDERABLESFinal ResultPerforming OrganizationAddressCity/State/ZIP CodePhone Number [facility] * TBH VITAMIN D 25 [place] (12/12/2024 11:40 AM EDT)ComponentValueRef RangeTest MethodAnalysis TimePerformed AtPathologist SignatureVITAMIN D29.0ng/mLTBH Comment: <20 ng/mL Vit D deficient 20-<30 ng/mL Vit D insufficient 30-100 ng/mL ??Vit D sufficient >100 ng/mL Potential Toxicity Specimen (Source)Anatomical Location / LateralityCollection Method / Volume Collection TimeReceived Time12/12/2024 11:40 AM EDT12/12/2024 11:47 AM EDT Narrative CLINISYAK - 12/12/2024 2:08 PM EDT Authorizing ProviderResult TypeResult StatusSandy Lisbeth Hemmer PACLINISYNCFinal ResultPerforming OrganizationAddressCity/State/ZIP CodePhone Number [facility] * METRO VITAMIN B1, WHOLE BLOOD (12/12/2024 11:40 AM EDT)ComponentValueRef Range Test MethodAnalysis TimePerformed AtPathologist SignatureVITAMIN B1 (THIAMINE), LRQLX672.466.5 - 200.0 nmol/LTBHComment: This test was developed and its performance characteristics determined by [facility]. It has not been cleared or approved by the Food and Drug Administration. Performed at: ?? - [facility] [address] ??[id number] Interpreter Translator: Yuli Callejas MD, Phone: ??[phone] Specimen (Source)Anatomical Location / LateralityCollection Method / Volume Collection TimeReceived Time12/12/2024 11:40 AM EDT12/12/2024 11:47 AM EDT Narrative CLINISYAK - 12/19/2024 5:08 PM EDT Authorizing ProviderResult TypeResult StatusSandy Bob Hemmer PACLINISYNCFinal ResultPerforming OrganizationAddressCity/State/[facility] CodePhone Number [facility] * METRO IRON AND TIBC (12/12/2024 11:40 AM EDT)ComponentValueRef RangeTest MethodAnalysis TimePerformed AtPathologist SignatureTBH IRON89.050.0 - 170.0 ug/dLTBHTBH TOTAL IRON BINDING HIMOOOTN380.0250.0 - 450.0 ug/dLTBHTBH PERCENT IRON FSMRQKOHRZ83.2%TBHSpecimen (Source)Anatomical Location / Laterality Collection Method / VolumeCollection TimeReceived Time12/12/2024 11:40 AM EDT 12/12/2024 11:47 AM EDT Narrative CLINISYNC - 12/12/2024 1:12 PM EDT Authorizing ProviderResult TypeResult StatusSandy Bob Hemmer PACLINISYNCFinal ResultPerforming OrganizationAddressCity/State/ZIP CodePhone Number CLINISYNC TB * ALL VITAMIN B6 (12/12/2024 11:40 AM EDT)ComponentValueRef RangeTest Method Analysis TimePerformed AtPathologist SignatureVITAMIN B6, ANLRDA70.53.4 - 65.2 ug/LTBHComment: This test was developed and its performance characteristics determined by [facility]. It has not been cleared or approved by the Food and Drug Administration. Deficiency: <3.4 ? Marginal: ?3.4 - 5.1 Adequate: >5.1 Performed at: ?? - [facility] [address] ??[id number] Interpreter Translator: Yuli Callejas MD, Phone: ??[phone] Specimen (Source)Anatomical Location / LateralityCollection Method / Volume Collection TimeReceived Time12/12/2024 11:40 AM EDT12/12/2024 11:47 AM EDT Narrative CLINISYNC - 12/17/2024 10:08 AM EDT Authorizing ProviderResult TypeResult StatusSandy Bob Hemmer PACLINISYNCFinal ResultPerforming OrganizationAddressty/State/ZIP CodePhone Number [facility] * ALL FOLIC ACID (12/12/2024 11:40 AM EDT)ComponentValueRef RangeTest Method Analysis TimePerformed AtPathologist DsziowebnLPRJJB09.408.60 - 58.90 ng/mLTBH Specimen (Source)Anatomical Location / LateralityCollection Method / Volume Collection TimeReceived Time12/12/2024 11:40 AM EDT12/12/2024 11:47 AM EDT Narrative CLINISYNC - 12/12/2024 2:08 PM EDT Authorizing ProviderResult TypeResult StatusSandy Bob Hemmer PACLINISYNCFinal ResultPerforming OrganizationAddPenn Highlands Healthcarety/State/ZIP CodePhone Number CLINISYAK [facility] * EMG 1 Extremeity (12/09/2024 9:00 AM EDT) Narrative Authorizing ProviderResult TypeResult StatusShannon Ochoa NPNEUROLOGY ORDERABLESEdited Result - Final * Pap Smear (03/20/2024 12:00 AM EST)Specimen (Source)Anatomical Location / LateralityCollection Method / VolumeCollection TimeReceived TimeSwabCervical swab / Unknown Narrative Authorizing ProviderResult TypeResult StatusCorearmando Starr DOLAB CYTOLOGY ORDERABLESFinal ResultPerforming OrganizationAddressCity/State/ZIP CodePhone Number EXTERNAL LAB * Microalbumin / creatinine urine ratio (06/02/2022)ComponentValueRef RangeTest MethodAnalysis TimePerformed AtPathologist SignatureCREATININE, RANDOM URINE 17810 - 275[facility] LEGACY EXTERNAL LABALBUMIN, URINE4.8See Note:[facility] LEGACY EXTERNAL LABComment: Reference Range: Reference Range Not established MICROALBUMIN/CREATININE RATIO, RANDOM URINE29<30N[facility] LEGACY EXTERNAL LABComment: The ADA defines abnormalities in albumin excretion as follows: Albuminuria Category ?Result (mcg/mg creatinine) Normal to Mildly increased <30 Moderately increased ? 30-299 Severely increased > OR = 300 The ADA recommends that at least two of three specimens collected within a 3-6 month period be abnormal before considering a patient to be within a diagnostic category. Specimen (Source)Anatomical Location / LateralityCollection Method / Volume Collection TimeReceived Time06/02/2022 Narrative Authorizing ProviderResult TypeResult Aparna ACE URINE ORDERABLES Final ResultPerforming OrganizationAddressCity/State/ZIP CodePhone Number [facility] LEGACY EXTERNAL LAB from Last 3 Months or Most Recently Relevant to Health Maintenance Additional Health Concerns Active ProblemsNoted DateDiagnosed DatePatient on antidepressant monitoring plan 4Baseline PHQ-9005/08/2023 Insurance Care Teams Team MemberRelationshipSpecialtyStart DateEnd Date Emerald Sanchez MD [address] [facility] [address] [place], [place] [id number] PCP - Medical [facility]10/23/1911 Emerald Sanchez MD [address] [facility] [address] [place] [address] [facility] - [facility]30/22
--- OUTSIDE RECORDS SUMMARY | 2025-02-27 19:14 | XMS_ITS | Patient Health Record ---
Author Organization [facility] in [place] Address [address] [place] [address] Care Team Providers Care Aerial Installer Name Role Phone Emerald Sanchez MD Primary Care Provider Bernardo Busch Unavailable [phone] Allergies No Known Allergies Results Component Value Reference Range Notes LIVER PROFILE Reviewed date:08/16/2024 08:58:07 AM Interpretation: Performing Lab: Notes/Report: [facility] , Bilirubin Total 0.4 0.2-1.0 mg/dL Bilirubin Direct0.10.0-0.2 mg/dLAspartate Amino Nginftitemt4686-47 U/LAlanine Wmwhloscryimgbpl8949-96 U/LAlkaline Zzycwuspkll24325-762 U/LTotal Protein6.46.4- 8.2 g/dLAlbumin Level3.23.4-5.0 g/dLGlobulin3.2Albumin Globulin Ratio1.0 Performing Lab:see noteML - [facility] LBLIVER PROFILE Reviewed date:08/15/2024 07:01:06 PM Interpretation: Performing Lab: Notes/Report: Comment from this am blood [facility] ,Bilirubin Total0.30.2-1.0 mg/dLBilirubin Direct0.10.0-0.2 mg/dLAspartate Amino Ydvjnobkwmp2195-40 U/LAlanine Vtacfndiyfzoyevs8232-68 U/LAlkaline Hsslwsgxtpu843 46-116 U/LTotal Protein6.76.4-8.2 g/dLAlbumin Level3.53.4-5.0 g/dLGlobulin3.2 Albumin Globulin Ratio1.1Performing Lab:see noteML - [facility] Reason For Referral No Information Medications Medication SIG (Take, Route, Frequency, Duration) Notes Start Date End Date Status Vraylar 4.5 MG 1 capsule Orally Once a day 03/27/2024ctiveXanax 0.5 MG1 tablet Orally Twice a day03/27/2024ctiveAlbuterol ActiveEscitalopram Oxalate 20 MG1 tablet Orally Once a day03/27/2024ctive Social History Tobacco Use: Social History Observation Description Date Details (start date - stop date) Former Smoker NA - NA Tobacco Control (Standard) Question Answer Notes Tobacco use: Former smoker Problems Problem Type SNOMED Code ICD Code Onset Dates Problem Status W/U Status Risk Notes Problem Hypertension (52747036) HTN (hypertension ) (I10) ActiveconfirmedProblemAlcohol withdrawal delirium (6653446)Alcoholic intoxication, with delirium (F10.121)ActiveconfirmedProblemAltered mental status associated with intoxication (F10.959)Activeconfirmed Vital Signs Heart Rate 105 /min 03/27/2024 Lxbcvaukzgl10.1 degrees Nydkkfwdfh54/04/0293Yebnrhgl32 %03/27/20242687Vinubg18 in 03/27/20246727Vhfxxy876 lbs105/28/2023BMI34.93 kg/m203/27/2024 Encounters Encounter Location Date Provider Diagnosis [address] [place] [address] 04/15/2024 [facility] [place] (PODIATRY)[address] [place] [id number]/[facility] [place] (PODIATRY)[address] [place] [address], sequela [...] Notes 03/27/2024 Sprain of other ligament of righ t ankle, sequela (ICD-10 - S93.491S) Patient was seen and evaluated. Patient's condition was provided and all questions were answered tosatisfaction. I reviewed x-rays, MRI and physical exam [...] likely be: Nonweightbearing for 1 to 3 weeksPatient will be: outpatient postoperatively Proposed anesthesia: General And regional Proposed implants: Medline suture anchors 03/27/2024Other instability, right ankle (ICD-10 - M25.371)03/27/2024Strain of muscle(s) and tendon(s) of peroneal muscle group at lower leg level, right leg, initial encounter (ICD-10 - S86.311A)03/27/2024Other specified acquired deformities of musculoskeletal system (ICD-10 - M95.8)03/27/2024Sprain of deltoid ligament of right ankle, subsequent encounter (ICD-10 - S93.421D) 03/27/2024Effusion, right ankle (ICD-10 - M25.471)03/27/2024OtherPatient did receive a prescription from [facility] from Dr. Sanchez her PCP. I notified [...] Insured Coverage Start Date Coverage End Date MMO [address] [place], [place] [id number] Belgica Barnett Self - patie nt is the insured Medical (General) History Medical History History ICD Code asthma liver diseasetuberculosisSurgical History Surgery Date(Month/Year) c section x 3 gall bladder removal
--- OUTSIDE RECORDS SUMMARY | 2025-02-27 19:14 | XMS_ITS | CCD ---
Author Organization [facility] Care Team Providers Care Lime Hide Inspector Name Role Phone OZIEL MONTEIRO Referring Unavailable GIOVANI HAGEN Primary Care Unavailable MD Erwin Hylton Attending Provider MD Giovani Hagen Primary Care Provider [phone] Giovani Hagen Primary Care Provider Erwin Hylton Unavailable GIOVANI HAGEN Primary Care Physician [phone] PAYTONK ., DR SIMON Consulting Unavailabl e [...] Unavailable HIEU, DR MATUTE Admitting Unavailable Jackson Butler Consulting Unavailable HIEU, DR MATUTE Consulting Unavailable MISC, DR MCKEON Primary Care Unavailable HIEU, DR MATUTE Attending Unavailable HIEU, DR MATUTE Admitting Unavailable Jackson Butler Consulting Unavailable ORTIZ ., DR DHALIWAL Consulting Unavailable HIEU, DR MATUTE Primary Care Unavailable ORTIZ ., DR DHALIWAL Attending Unavailable ORTIZ ., DR DHALIWAL Admitting Unavailable ORTIZ ., DR DHALIWAL Consulting Unavailable HIEU, DR MATUTE Primary Care Unavailable ORTIZ ., DR DHALIWAL Attending Unavailable ORTIZ ., DR DHALIWAL Admitting Unavailable ORTIZ ., DR DHALIWAL Consulting Unavailable HIEU, DR MATUTE Primary Care Unavailable ORTIZ ., DR DHALIWAL Attending Unavailable ORTIZ ., DR DHALIWAL Admitting Unavailable Jed, Jackson [...] Provider MD Giovani Hagen Primary Care Provider [phone] Giovani Hagen MD Primary Care Provider [phone] BLOODMARY Admitting Unavailable BLOOD, MARY Culver Attending Unavailable JACKSON MONTENEGRO Consulting Unavailable SONIYA PATEL Referring Unavailable HIEU, [facility] Primary Care Unavailable MAKENNA AMAYA Consulting Unavailable Giovani Hagen MD Primary Care Provider Giovani Hagen MD Unavailable Giovani Hagen MD Primary Care Provider Deena Lyn CNP Unavailable SOLO CARTY Referring Unavailable [facility] Unavailable Darwin Starr DO R Unavailable Giovani Hagen MD Primary Care Provider [phone] Dank Green MD Admit Provider Dank Green MD Attending Provider [phone] Dank Green Admitting Unavailab Rahul Ugarte Attending Unavailable Jackson, Giovani Bob Primary Care Unavailable Jackson Giovani FRIEDMAN Primary Care Provider Deena Lyn APRN Unavailable [phone] Iliana Cramer Attending Unavailable Madhuri ORTIZ Attending Unavailable Bela, Iliana Attending Unavailable HIEU, RUGEN M Primary Care Unavailable HIEU, RUGEN M Primary Care Unavailable DOLCE, MILTON Roth Attending Unavailable DOLCE, MILTON Roth Referring Unavailable AYLEEN KRISHNAMURTHY Attending Unavailable HIEU, GIOVANI M Attending Unavailable PRATEEK PITTS Attending Unavailable DARWIN STARR Attending Unavailable DOLCE, [...] Bob Attending Unavailable HEMMERSANDY Attending Unavailable RIKIDEENA FERGUSON Attending Unavailable RIKI, DEENA Bob Attending Unavailable SHANNON OCHOA Attending Unavailab le HEMMERSANDY Attending Unavailable DOLCE, MILTON Roth Attending Unavailable DOLBRAN, MILTON Roth Referring Unavailable HIEU, GIOVANI Bob Attending Unavailable JATIN PARISI Attending Unavailable DOLCE, MILTON Roth Attending Unavailable HIEU, GIOVANI M Attending Unavailable CLARYBLEYANITRA Attending Unavailable HIEU, RUGEN M Referring Unavailable KELBLEYANITRA Attending Unavailable HIEU, RUGEN M Referring Unavailable BRINKARUN Attending Unavailable HIEU, RUGEN M Referring Unavailable BRINKARUN Attending Unavailable HIEU, RUGEN M Referring Unavailable KELBLEYANITRA Attending Unavailable HIEU, RUGEN M Referring Unavailable MATTYDARWIN Drew Attending Unavailable ZHEN BURGESS Attending Unavailable HIEU, RUGEN M Referring Unavailable HIEU, RUGEN M Attending Unavailable RIKIDEENA Attending Unavailable HIEU, GIOVANI M Attending Unavailable JOSEPHINE GILMAN Attending Unavailable DARWIN STARR Attending Unavailable PRATEEK PITTS Attending Unavailable HIEU, GIOVANI M Referring Unavailable HIEU, GIOVANI M Attending Unavailable JATIN PARISI Referring Unavailable SANDY HAMMOND Attending Unavailable JUNO, MILTON Roth Attending Unavailable JUNO, MILTON Roth Attending Unavailable ILIANA MERCADO Referring Unavailable HIEU, [facility] Primary Care Unavailable MARIO HARPER Referring Unavailable HIEU, [facility] Primary Care Unavailable HIEU, [facility] Primary Care Unavailable DAKHIL, NOMA Referring Unavailable HIEU, [facility] Primary Care Unavailable YASHAILA HONGEN Referring Unavailable HIEU, [facility] Primary Care Unavailable YACAPMARINO, ILIANA Referring Unavailable OBED BHATT Attending Unavailable HIEU, [facility] Primary Care Unavailable DAKHIL, NOMA Referring Unavailable JOEL PRYOR [facility]ending [facility] Unavailable LYDIA KELLEY Attending Unavailab le HIEU, [facility] Primary Care Unavailable DARWIN STARR Referring Unavailable BASHOURLILYI S Attending Un[facility] Care Unavailable BASHOURLILYI S Referring Unavailable HIEU, [facility] Primary Care Unavailable DAKHIL, NOMA Referring Unavailable HIEU, [facility] Primary Care Unavailable MARIO HARPER Attending Unavailable HIEU, [facility] Primary Care Unavailable MARIO HARPER Referring Unavailable HIEU, [facility] Primary Care Unavailable SHAILA MERCADOEN Referring Unavailable HIEU, [facility] Primary Care Unavailable ILIANA MERCADO Referring Unavailable HIEU, [facility] Primary Care Unavailable KOCHAR, ARSHNEEL Referring Unavailable HIEU, [facility] Primary Care Unavailable KOCHAR, ARSHNEEL Referring Unavailable HIEU, [facility] Primary Care Unavailable KOCHAR, ARSHNEEL Referring Unavailable KOCHAR, ARSHNEEL Attending Unavailable HIEU, [facility] Primary Care Unavailable DAKHIL, NOMA Referring Unavailable MARIO HARPER Attending Unavailable HIEU, [facility] Primary Care Unavailable BASHOUR, JAVY S Referring Unavailable EMMA ROMERO Attending Unavailable HIEU, [facility] Primary Care Unavailable KOCHAR, ARSHNEEL Referring Unavailable HIEU, [facility] Primary Care Unavailable DAKHIL, NOMA Attending Unavailable [facility] Unavailable ILIANA MERCADO Attending Unavailable [facility] Primary Care Unavailable MARIO HARPER Referring Unavailable LYDIA ROCK Attending Unavailable Allergies Allergy ClassificationReported Allergen(s)Allergy TypeDate of OnsetReaction(s) FacilityIodine (and Iodine containting drugs) (2 sources)IodineDrug Qzgoboc97-67-0463Sgkujsjr, ItchingUniversity Hospitals Portage Medical CenterIohexol (2 sources)IohexolDrug Ukorrzx40-52-5625IlabkllMynyqwcyn Clinic (20 sources)Iodine; Translations: [IODINE]Drug Jselrpz95-25-5263Zkjfogak, [facility] HospitalingUniversity Hospitals Portage [facility] Center (20 sources)Iohexol; Translations: [IOHEXOL]Drug Rnusjok23-68-7506Kgygzcf [facility] (1 source)CatPropensity to adverse reactionsOrlando Health [facility]21 Other (16 sources)tree nut, unspecified; Translations: [TREE NUTS]Propensity to adverse hasvszxcv41-39-2532ersgiouwcgsKjdog Coast [facility]21 Other (1 source)peanut allergenic extractDrug AllergyAvita Health System Repository (1 source)Cat/Feline Product DerivativesDrug allergy (disorder)64-80-3572OgjAvita Health System Repository (20 sources)Cat Hair ExtractAllergy to roorlmrey94-36-9936PalozlnfuhfJCWB Healthcare (20 sources)Iodinated Contrast Media; Translations: [IODINATED CONTRAST MEDIA] Drug Bgdakva72-62-8488Uwpoz, Anaphylaxis, ItchingUniversity of Missouri Health Care (20 sources)Prednisone & DiphenhydramineDrug Lkqhhnj18-98-3498BHWF Healthcare (16 sources)Cat Dander; Translations: [cat dander]Drug Viswlla99-44-7687 [facility] (1 source)tree nut, unspecifiedDrug allergy (disorder)54-40-1978FljugpmvoBlanchard [facility] (1 source)No Known Medication Allergies; Translations: [No Known Medication Allergies]Propensity to adverse reactions (disorder)[facility] Repository Medications Current Medications MedicationDrug Class(es)DatesSig (Normalized)Sig (Original)acetaminophen 1000 mg oral tablet (5 sources)Start: 15-43-1943kapz 1000 mg by mouth once daily as needed for pain Tylenol 1,000 mg, Oral, Daily, PRN as needed for pain, Refills(s) 0 Start Date: 06/12/18 Status: Ordered Repeat number: 1acetaminophen 325 mg / HYDROcodone bitartrate 5 mg oral tablet (9 sources)Opioid AgonistStart: 09-06-2024 End: 50-31-0344xebw 1 tablet by mouth every four hours as neededHYDROcodone- acetaminophen ([place]) 5-325 MG tablet Take 1 tablet by mouth every 4 (four) hours if needed 09/06/2024 09/17/2024 Discontinued (Therapy completed)Start: 05-09-2024 End: 14-24-4997gixk 1 tablet by mouth every six hours for painHYDROcodone- acetaminophen ([place]) 5-325 MG tablet Indications: Cervical radiculopathy due to degenerative joint disease of spine Take 1 tablet by mouth every 6 (six) hours if needed for severe pain for up to 5 days 20 tablet 05/09/2024 05/14/2024 ActiveStart: 04-16-2024 End: 28-05-0040inmw 1 tablet by mouth every six hours for painHYDROcodone- acetaminophen ([place]) 5-325 MG tablet Indications: Sprain of anterior talofibular ligament of right ankle, subsequent encounter Take 1 tablet by mouth every 6 (six) hours if needed for severe pain for up to 5 days 20 tablet 04/16/2024 04/21/2024 [id number] 200 actuat albuterol 0.09 mg/actuat metered dose inhaler (20 sources)beta2-Adrenergic AgonistStart: 62-10-5144fopx 2 puff(s) by inhalation every four hours as needed for wheezingAlbuterol Sulfate 90 mcg/actuation HFA aerosol inhaler Active 2 PUFF INHALATION Every 4 hours as nee ded for shortness of breath or wheezing August 18, 2024 12:00am FreeTextSi puff as needed Inhalation every 4 hrs; Note: Source Status: Taking; Provider: Concetta Hood ( )Start: 08-06-2024 End: 65-85-9937sifm 2 puff(s) by inhalation every six hours for wheezing albuterol HFA 90 mcg/act inhaler Indications: Mild intermittent asthma without complication (HCC) Inhale 2 puffs every 6 (six) hours if needed for wheezing 18 g 3 10/08/2024 ActiveStart: 04-16-2024 End: 61-75-8485ipfxzouzs (2.5 MG/3ML) 0.083% nebulizer solution Indications: Moderate persistent asthmatic bronchitis with acute exacerbation (HCC) Take 3 mL (2.5 mg) by nebulization every 6 (six) hours if needed for wheezing 75 mL 11 04/16/2024 04/16/2025 ActiveStart: 00-49-5834zjve 2 puff(s) by inhalation every six hours as neededalbuterol HFA 90 mcg/act inhaler INHALE 2 PUFFS INTO THE LUNGS EVERY 6 HOURS NEEDED FOR 30 DAYS 08/31/2022 ActiveStart: 12-17-2018 albuterol 2 puffs every 4 hours as needed for SOB/wheezing, Refills(s) 0 Start Date: 12/17/18 Status: Ordered Repeat number: 1Start: 60-06-0779tskdvufkq 2 puffs every 4 hours as needed for SOB/wheezing, Refills(s) 0 Start Date: 12/17/18 Status: Orderedtake 2 puff(s) by inhalation every four hours as neededAlbuterol Sulfate HFA 108 (90 Base) MCG/ACT 2 puff as needed Inhalation every 4 hrs Active 24 hr amphetamine aspartate 7.5 mg / amphetamine sulfate 7.5 mg / dextroamphetamine saccharate 7.5 mg / dextroamphetamine sulfate 7.5 mg extended release oral capsule (20 sources)Central Nervous System StimulantStart: 12-16-2024 End: 37-77-9521qohu 1 capsule by mouth every twenty-four hours [...] Take with the 30mg tablet. 30 capsule 02/27/2025 03/29/2025 ActiveStart: 12-16-2024 End: 47-99-1589vdge 1 capsule by mouth once dailyamphetamine-dextroamphetamine XR (Adderall XR) 30 MG 24 hr capsule Indications: Attention deficit hy peractivity disorder (ADHD), predominantly inattentive type Take 1 capsule (30 mg) by mouth Daily Do not crush or chew. Take with the 10mg daily 30 capsule 02/27/2025 03/29/2025 ActiveStart: 36-35-9415ukcj 1 capsule by mouth once daily in the morningDextroamphetamine-Amphetamine 10 mg capsule,extended release 24hr Active 10 MG PO Every morning August 16, 2024 12:00amStart: 07-16-2024 End: 35-27-8755bjys 1 capsule by mouth every twenty-four hours [...] tablet. 30 capsule 10/08/2024 12/12/2024 Discontinued (Therapy completed)Start: 07-16-2024 End: 24-29-7442ryci 1 capsule by mouth once dailyamphetamine-dextroamphetamine XR (Adderall XR) 30 MG 24 hr capsule Indications: Attention deficit hy peractivity disorder (ADHD), predominantly inattentive type Take 1 capsule (30 mg) by mouth Daily Do not crush or chew. Take with the 10mg daily 30 capsule 10/08/2024 12/12/2024 Discontinued (Therapycompleted)Start: 06-06-2024 End: 84-07-6221gjmf 1 capsule by mouth every twenty-four hours [...] the 30mg tablet. 30 capsule 06/06/2024 07/06/2024 ActiveStart: 11-30-2023 End: 49-23-4460ubzs 1 capsule by mouth once dailyamphetamine-dextroamphetamine XR (Adderall XR) 30 MG 24 hr capsule Indications: Attention deficit hy peractivity disorder (ADHD), predominantly inattentive type (CMS/HCC) Take 1 capsule (30 mg) by mouth Daily Do not crush or chew. Take with the 10mg daily 30 capsule 06/06/2024 07/06/2024 Activebismuth subcitrate 140 mg / metroNIDAZOLE 125 mg / tetracycline hydrochloride 125 mg oral capsule (1 source)Nitroimidazole Antimicrobial, Tetracycline-class AntimicrobialStart: 07-04-2022 End: 52-00-9951pjjd 3 capsules by mouth at bedtimeBis Subcit Fkd-Ssdtx-Saenvzah (PYLERA) 140-125-125 mg per capsule Take 3 capsules by mouth before meals and at bedtime for 10 days. 120 capsule 0 07/04/2022 07/14/2022 ActiveComment on above: Take 3 capsules by mouth before meals and at bedtime for 10 days.buPROPion (20 sources)AminoketoneStart: 01-19-3513IDLNZWXHX HYDROCHLORIDE ER (XL) 300 MG TB24 BUPROPION HYDROCHLORIDE ER (XL) 300 MG TB24 Start Date:12/31/24 Status: Ordered Repeat number: 1Start: 83-45-3874kiXBLDsfb XL (WELLBUTRIN XL) 300 mg 24 hr tablet 300 mg. 11/22/2024 ActiveStart: 23-26-9243lzxq 1 tablet by mouth every twenty-four hours in the morningbuPROPion XL (Wellbutrin XL) 150 MG 24 hr tablet Take 150 mg by mouth in the morning. 09/13/2024 ActiveStart: 06-29-2022 Wellbutrin SR Oral, BID Start Date: 06/29/22 Status: OrderedStart: 05-25-2022 End: 32-63-1609rvXMHCufh SR (ZYBAN SR; WELLBUTRIN SR) 150 mg 12 hr tablet 05/25/2022 12/19/2023 Discontinued (Other)take 1 tablet by mouth every twelve hoursWellbutrin XL 150 MG 1 tablet in the morning Orally TWICE A DAY Active cariprazine 4.5 mg oral capsule (20 sources)Atypical AntipsychoticStart: 75-05-4386minx 1 capsule by mouth once dailyCariprazine HCl (Vraylar) 4.5 MG capsule Indications: Bipolar disorder, in partial remission, most recent episode manic (HCC) Take 1 capsule by mouth Daily 100 capsule 3 08/30/2024 ActiveStart: 12-28-2023 End: 20-24-5207zert 1 mg by mouth once dailyVraylar 4.5 mg oral capsule mg cap(s), Oral, Daily Start Date: 12/28/23 Status: OrderedStart: 08-14-2023 End: 21-14-3864jjiy 1 capsule by mouth once dailyVraylar 4.5 MG capsule Indications: Bipolar disorder, in partial remission, most recent episode manic (CMS/HCC) TAKE 1 CAPSULE BY MOUTH EVERY DAY 30 capsule 5 08/14/2023 ActiveStart: 25-74-0170yfua 1 capsule by mouth once dailyVraylar 1.5 mg oral capsule 1.5 mg = 1 cap(s), Oral, Daily Start Date: 05/01/19 Status: Orderedtake 1 capsule by mouth once dailycariprazine (VRAYLAR) 3 mg cap Take by mouth once daily. 0 Active Vraylar ActiveComment on above:Take by mouth once daily.1 capsule.cefuroxime 500 mg oral tablet (5 sources)Cephalosporin AntibacterialStart: 04-18-2024 End: 63-37-7085kqgu 1 tablet by mouth in the morningcefuroxime (Ceftin) 500 MG tablet Indications: Acute bronchitis with asthma (CMS/HCC) Take 1 tablet(500 mg) by mouth in the morning and 1 tablet (500 mg) before bedtime. Do all this for 10 days. 20 tablet 04/18/2024 04/28/2024 Activecelecoxib 100 mg oral capsule (10 sources)Nonsteroidal Anti-inflammatory DrugStart: 01-13-2025 End: 55-41-5039dzda 1 capsule by mouth in the morningcelecoxib (CeleBREX) 100 MG capsule Indications: Lumbar radiculopathy Take 1 capsule (100 mg) by mouth in the morning and 1 capsule (100 mg) before bedtime. 180 capsule 3 01/13/2025 01/13/2026 Activecephalexin 500 mg oral capsule (20 sources)Cephalosporin AntibacterialStart: 09-06-2024 End: 30-99-8178javh 1 capsule by mouth in the morningcephalexin (Keflex) 500 MG capsule Indications: Urinary tract infection without hematuria, site unspecified Take 1 capsule (500 mg) by mouth in the morning and 1 capsule (500 mg) before bedtime. 20 capsule 10/08/2024 12/12/2024 Discontinued (Other)Start: 08-17-2024 End: 47-57-1721iyaknjlbkt (Keflex) 250 MG capsule Take 250 mg by mouth 08/17/2024 09/02/2024 Discontinued (Other)Start: 03-13-2024 End: 77-11-1536xyjwrmterb (Keflex) 250 MG capsule TAKE 1 CAPSULE BY MOUTH AFTER INTERCOURSE TO PREVENT UTI 03/13/2024 08/01/2024 Discontinued (Other)Start: 18-64-1486Gcuhew 250 mg Cap See Instructions, 1 cap po after intercourse to prevent UTI, # 20 cap(s), Refills(s) 2, Pharmacy: [facility]/pharmacy #[id number], 158, cm, 12/28/23 15:24:00 EDT, Height/Length Dosing, 87, kg, 12/28/23 15:24:00 EDT, Weight Dosing Start Date: 12/28/23 Status: Ordered Quantity: 20.0 Unit: cap(s) Re peat number: 3 Indications: Urinary tract infection, site not specified; Calculus of kidney; Nicotine dependence, unspecified, uncomplicated;Start: 65-45-0793gpmm 1 tablet by mouth twice daily, then take 1 tablet by mouth once dailyKeflex 500 mg Cap See Instructions, Take 1 tab by mouth twice a day for 10 days. Then take 1 tab once a day for 30 days., # 50 cap(s), Refills(s) 0, Pharmacy: [facility]/pharmacy #[id number], 158, cm, 06/29/22 8:19:00 EST, Height/Length Dosing, 84.8, kg, 06/29/22 8:19:00 EST, Weigh... Start Date: 06/29/22 Status: Orderedclobetasol propionate 0.5 mg/ml topical cream (20 sources)CorticosteroidStart: 01-22-2024 End: 78-66-7887jirybquimm (Temovate) 0.05 % cream Indications: Dyspareunia in female , Urethral pain Apply 1 application topically Daily Apply pea-size amount daily for 30 days and then every other day for another 30 days. 60 g 1 01/22/2024 03/22/2024 ActiveclomiPRAMINE hydrochloride 50 mg oral capsule (20 sources)Tricyclic AntidepressantStart: 10-03-2024 End: 75-76-9162hwbq 1 capsule by mouth at bedtimeclomiPRAMINE (Anafranil) 50 MG capsule Indications: Anxiety , Trichotillomania TAKE 1 CAPSULE BY MOUTH AT BEDTIME 30 capsule 6 10/03/2024 12/12/2024 Discontinued (Other)Start: 08-01-2024 End: 95-94-0674ejct 1 capsule by mouth at bedtimeclomiPRAMINE (Anafranil) 50 MG capsule Indications: Anxiety , 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CMS/HCC) TAKE 1 CAPSULE BY MOUTH AT BEDTIME 30 capsule 09/02/2024 ActiveStart: 07-04-2024 End: 72-30-4962qpzh 1 capsule by mouth at bedtimeClomipramine 25 mg capsule Discontinued 25 MG PO Bedtime August 16, 2024 12:00am August 19, 2024 11:35am clonazePAM 0.5 mg oral tablet (8 sources)BenzodiazepineStart: 51-44-4946xsrbxytUQM (KLONOPIN) 0.5 mg tablet Take 1 mg by mouth. 04/02/2024 ActiveStart: 04-01-2024 End: 48-07-0912bgef 1 tablet by mouth in the morningclonazePAM (KlonoPIN) 0.5 MG tablet Indications: Tremors of nervous system Take 1 tablet (0.5 mg) by mouth in the morning and 1 tablet (0.5 mg) before bedtime. 60 tablet 04/01/2024 05/01/2024 ActivecloNIDine hydrochloride 0.1 mg oral tablet (20 sources)Central alpha-2 Adrenergic Agonist End: 79-51-7295kjcROPhay (Catapres) 0.1 MG tablet 1 (one) time each day at the same time 12/16/2024 Discontinued (Therapy completed)cyclobenzaprine hydrochloride 5 mg oral tablet (4 sources)Muscle RelaxantStart: 89-45-4711zlevjtsxbzktufn (FLEXERIL) 5 mg tablet Indications: pelvic pain/muscle spasm Place 1 tab per vaginaup to TID prn pain/spasm, if no effect may try 2 tabs TID prn. 30 tablet 2 12/30/2024 Active Start: 57-25-0862ocsu 1 tablet by mouth three times dailycyclobenzaprine (FLEXERIL) 5 mg tablet take 1 tablet by mouth three times a day for 14 days 11/27/2024 Activedapagliflozin 10 mg oral tablet (20 sources)Sodium-Glucose Cotransporter 2 InhibitorStart: 12-16-2024 End: 08-90-6161iglt 1 tablet by mouth once dailydapagliflozin (Farxiga) 10 MG Indications: Weight gain , Borderline diabetes Take 1 tablet (10 mg) by mouth Daily 30 tablet 11 12/16/2024 12/16/2025 Activediclofenac sodium 75 mg delayed release oral tablet (20 sources)Nonsteroidal Anti-inflammatory DrugStart: 10-71-9818lcez 1 tablet by mouth twice dailydiclofenac, EC, (VOLTAREN) 75 mg EC tablet 1 tab(s) orally 2 times a day for 30 day(s) 03/19/2024 ActiveStart: 03-19-2024 End: 92-67-7730mxbxqpfehx (Voltaren) 75 MG EC tablet every 12 (twelve) hours 03/19/2024 05/09/2024 Discontinued (Other)dicyclomine hydrochloride 10 mg oral capsule (13 sources)AnticholinergicStart: 09-26-2024 End: 51-88-6160kmbk 2 capsules by mouth three times daily as neededdicyclomine (Bentyl) 10 MG capsule Indications: Cramp, abdominal Take 2 capsules (20 mg) by mouth 3(three) times a day as needed (cramping) 240 capsule 11 09/26/2024 12/12/2024 Discontinued (Other)doxepin hydrochloride 100 mg oral capsule (20 sources)Tricyclic AntidepressantStart: 12-16-2024 End: 63-27-0598hysc 2 capsules by mouth at bedtimedoxepin (SINEquan) 100 MG capsule Indications: Major depressive disorder, recurrent, moderate (HCC)Take 2 capsules (200 mg) by mouth at bedtime 60 capsule 5 01/20/2025 ActiveStart: 12-16-2024 End: 00-08-4261nvpc 1 capsule by mouth at bedtimedoxepin (SINEquan) 50 MG capsule Indications: Major depressive disorder, recurrent, moderate (HCC) Take 1 capsule (50 mg) by mouth at bedtime 100 capsule 2 12/16/2024 12/16/2024 Discontinued (Reorder)Start: 12-07-2021 End: 94-97-1310lpjggiy HCl (DOXEPIN ORAL) 12/07/2021 11/02/2022 Discontinued Start: 12-07-2021 End: 30-08-7373wkmwsys HCl (DOXEPIN ORAL)Start: 54-55-3861lxyszkt HCl (DOXEPIN ORAL)escitalopram 20 mg oral tablet (20 sources)Serotonin Reuptake InhibitorStart: 06-06-2024 End: 85-22-2418bdzf 1.5 tablets by mouth in the morningescitalopram (Lexapro) 20 MG tablet Indications: Bipolar disorder, in partial remission, most recent episode manic (HCC) Take 1.5 tablets (30 mg) by mouth in the morning. 45 tablet 2 06/06/2024 10/10/2024 DiscontinuedStart: 11-09-2023 End: 02-65-1871deln 1 tablet by mouth once daily in the morningescitalopram (Lexapro) 20 MG tablet Indications: Bipolar disorder, in partial remission, most recent episode manic (CMS/HCC) TAKE 1 TABLET BY MOUTH EVERY DAY IN THE MORNING 30 tablet 2 05/13/2024 06/06/2024 Discontinued (Reorder)30 actuat fluticasone furoate 0.1 mg/actuat / umeclidinium 0.0625 mg/actuat / vilanterol 0.025 mg/ac tuat dry powder inhaler (20 sources)Anticholinergic, Corticosteroid, beta2-Adrenergic AgonistStart: 95-97-3962ccyl 1 puff(s) by inhalation once mhbssAmsjcijmenc-Hnnbntfqg-Zdzeny (Trelegy Ellipta) 100-62.5-25 MCG/ACT aerosol powder Indications: Moderate persistent asthmatic bronchitis with acute exacerbation (HCC) INHALE 1 PUFF DAILY 60 each 2 09/03/2024 ActiveStart: 04-16-2024 End: 74-15-0710fxuw 1 puff(s) by inhalation once daily Zqtzeefxlxn-Kzydunvuy-Pscryy 100-62.5-25 MCG/ACT aerosol powder Indications: Moderate persistent asthmatic bronchitis with acute exacerbation (CMS/HCC) Inhale 1 puff Daily 1 each 04/16/2024 06/25/2024 DiscontinuedStart: 05-24-2022 take 1 puff(s) by inhalation once tijcwRjjkrcvrqid-Eptvdanxw-Mkndkr 100-62.5-25 MCG/ACT aerosol powder INHALE 1 PUFF INTO THE LUNGS EVERY DAY FOR 30 DAYS 05/24/2022 ActiveStart: 05-24-2022 End: 93-65-1773MFSFOJJ ELLIPTA 100-62.5-25 mcg inhalation powder 05/24/2022 11/02/2022 Discontinuedfluticasone/umeclidin/vilanter (TRELEGY ELLIPTA INHALATION) (16 sources)fluticasone/umeclidin/vilanter (TRELEGY ELLIPTA INHALATION) Inhale as instructed. Activehydrocortisone acetate 25 mg rectal suppository (20 sources)CorticosteroidStart: 07-08-2024 End: 22-29-2545gmajgueyieccez (Anusol-HC) 25 MG suppository UNWRAP AND INSERT 1 SUPPOSITORY RECTALLY EVERY 12 HOURS NEEDED FOR HEMORRHOIDS 07/08/2024 12/12/2024 Discontinued (Other)hydrOXYzine pamoate 25 mg oral capsule (12 sources)AntihistamineStart: 07-04-2024 End: 26-27-3701uagd 1 capsule by mouth every six hourshydrOXYzine pamoate (Vistaril) 25 MG capsule Indications: Anxiety , PTSD (post-traumatic stress diso rder) ([facility]) Take 1 capsule (25 mg) by mouth every 6 (six) hours if needed for itching for up to10 days 30 capsule 07/04/2024 Activeibuprofen 800 mg oral tablet (2 sources)Nonsteroidal Anti-inflammatory DrugStart: 47-91-8731xyjz 800 mg by mouth once daily as needed for painibuprofen 800 mg, Oral, Daily, PRN as needed for pain, Refills(s) 0 Start Date: 06/12/18 Status: Orderedlidocaine 50 mg/ml rectal cream (20 sources)Antiarrhythmic, Amide Local AnestheticStart: 07-08-2024 End: 15-21-7045JfbRjaia1 5 % cream APPLY 1 APPLICATION TOPICALLY FOUR TIMES DAILY NEEDED FOR PAIN 07/08/2024 09/17/2024 Discontinued (Other)Start: 19-56-1533vtqq 15 mL by mouth every three hours as needed for painLidocaine Viscous 2 % gargle 15 ml as needed for pain Mouth/Throat every 3 hrs Apr, Not-Xnkdgc72 hr metoprolol succinate 25 mg extended release oral tablet (20 sources)beta-Adrenergic BlockerStart: 08-13-2024 End: 95-76-7020bhuw 1 tablet by mouth once dailymetoprolol succinate XL (Toprol- XL) 25 MG 24 hr tablet Indications: Hypercholesterolemia Take 1 tablet (25 mg) by mouth Daily 100 tablet 3 09/19/2024 Activemontelukast 10 mg oral tablet (20 sources)Leukotriene Receptor AntagonistStart: 04-01-2024 End: 82-42-5524xmxv 1 tablet by mouth at bedtimemontelukast (Singulair) 10 MG tablet Indications: Mild intermittent asthma without complication (HCC) Take 1 tablet (10 mg) by mouth at bedtime 30 tablet 11 04/01/2024 04/01/2025 Active OLANZapine 2.5 mg oral tablet (2 sources)Atypical AntipsychoticStart: 31-19-5519GRYJXgzktr (ZYPREXA) 2.5 mg tablet 12/30/2024 ActiveOXcarbazepine 300 mg oral tablet (20 sources)Anti-epileptic AgentStart: 10-10-2024 End: 04-95-9325gbcl 0.5 tablet by mouth at bedtime, then take 1 tablet by mouth at bedtimeOXcarbazepine (Trileptal) 300 MG tablet Indications: Numbness and tingling , Atypical migraine Take0.5 tablets (150 mg) by mouth at bedtime for 7 days, THEN 1 tablet (300 mg) at bedtime. 34 tablet 11 10/10/2024 ActiveStart: 10-10-2024 End: 68-75-6090yjet 1 tablet by mouth in the morningOXcarbazepine (Trileptal) 300 MG tablet Indications: Lumbar radiculopathy , Atypical migraine Take 1 tablet (300 mg) by mouth in the morning and 1 tablet (300 mg) before bedtime. 60 tablet 2 12/26/2024 12/26/2025 Activephentermine hydrochloride 37.5 mg oral tablet (20 sources)Sympathomimetic Amine AnorecticStart: 07-16-2024 End: 03-48-6009venl 1 tablet by mouth in the morningphentermine (Adipex-P) 37.5 MG tablet Indications: Obesity (BMI 35.0-39.9 without comorbidity) TAKE1 TABLET (37.5 MG) BY MOUTH IN THE MORNING 30 tablet 08/29/2024 10/10/2024 Discontinued Start: 12-04-2023 End: 12-13-2398rzqo 1 tablet by mouth before mealtimephentermine (Adipex-P) 37.5 MG tablet Indications: Obesity (BMI 35.0-39.9 without comorbidity) Take1 tablet (37.5 mg) by mouth in the morning. Take before meals. 30 tablet 04/30/2024 Activeprazosin 2 mg oral capsule (20 sources)alpha-Adrenergic BlockerStart: 12-16-2024 End: 72-27-2464nczq 1 capsule by mouth in the morning, then take 1 capsule by mouth in the evening, then take 1 capsule by mouth at bedtimeprazosin (Minipress) 2 MG capsule Indications: PTSD (post-traumatic stress disorder) Take 1 capsule(2 mg) by mouth in the morning and 1 capsule (2 mg) in the evening and 1 capsule (2 mg) before bedtime. 100 capsule 2 12/16/2024 ActivepredniSONE 10 mg oral tablet (20 sources)Start: 01-14-2025 End: 32-23-2638ldsy 4 tablets by mouth once daily, then take 3 tablets by mouth once daily, then take 2 tablets bymouth once daily, then take 1 tablet by mouth once dailypredniSONE (Deltasone) 10 MG tablet Indications: Moderate persistent asthma with acute exacerbation(HCC) Take 4 tablets (40 mg) by mouth Daily for 4 days, THEN 3 tablets (30 mg) Daily for 4 days, THEN 2 tablets (20 mg) Daily for 4 days, THEN 1 tablet (10 mg) Daily for 4 days. 40 tablet 01/14/2025 01/30/2025 ActiveStart: 12-13-2024 End: 09-81-1466yyug 1 tablet by mouth once dailypredniSONE (Deltasone) 20 MG tablet Indications: Other synovitis and tenosynovitis, right ankle andfoot Take 1 tablet (20 mg) by mouth Daily for 10 days 10 tablet 12/13/2024 12/23/2024 ActiveStart: 26-34-0329eajavtISRW (DELTASONE) 10 mg tablet PLEASE SEE ATTACHED FOR DETAILED DIRECTIONS 10/08/2024 ActiveStart: 10-08-2024 End: 96-72-6771zqxh 4 tablets by mouth once daily, then take 3 tablets by mouth once daily, then take 2 tablets bymouth once daily, then take 1 tablet by mouth once dailypredniSONE (Deltasone) 10 MG tablet Indications: Inflammation and stiffening of spine Take 4 tablets (40 mg) by mouth Daily for 4 days, THEN 3 tablets (30 mg) Daily for 4 days, THEN 2 tablets (20 mg)Daily for 4 days, THEN 1 tablet (10 mg) Daily for 4 days. 40 tablet 10/08/2024 10/10/2024 Discontinued Start: 08-14-2024 End: 43-22-8804szfq 1 tablet by mouth once dailypredniSONE (Deltasone) 20 MG tablet Indications: Peroneal tendon tear, right, initial encounter Take 1 tablet (20 mg) by mouth Daily for 10 days 10 tablet 08/14/2024 08/24/2024 ActiveStart: 04-16-2024 End: 60-74-0231qosr 4 tablets by mouth once daily, then take 3 tablets by mouth once daily, then take 2 tablets bymouth once daily, then take 1 tablet by mouth once dailypredniSONE (Deltasone) 10 MG tablet Indications: Moderate persistent asthmatic bronchitis with acute exacerbation (CMS/HCC) Take 4 tablets (40 mg) by mouth Daily for 4 days, THEN 3 tablets (30 mg) Daily for 4 days, THEN 2 tablets (20 mg) Daily for 4 days, THEN 1 tablet (10 mg) Daily for 4 days. 40 tablet 04/16/2024 05/02/2024 ExpiredStart: 12-26-2023 End: 05-35-4731ruvt 4 tablets by mouth once daily, then take 3 tablets by mouth once daily, then take 2 tablets bymouth once daily, then take 1 tablet by mouth once dailypredniSONE (Deltasone) 10 MG tablet Indications: Cervical radiculopathy , Acute nonintractable headache, unspecified headache type Take 4 tablets (40 mg) by mouth Daily for 4 days, THEN 3 tablets (30mg) Daily for 4 days, THEN 2 tablets (20 mg) Daily for 4 days, THEN 1 tablet (10 mg) Daily for 4 days. 40 tablet 12/26/2023 01/22/2024 Discontinuedpropranolol hydrochloride 10 mg oral tablet (20 sources)beta-Adrenergic BlockerStart: 02-16-5287dpzlomgbhnb (Inderal) 10 MG tablet every 12 (twelve) hours 09/30/2024 ActiveStart: 82-58-0827pqhdbazjpzi (INDERAL) 10 mg tablet every 12 hours. 09/30/2024 Jvzczi83 hr QUEtiapine 50 mg extended release oral tablet (19 sources)Atypical AntipsychoticStart: 09-13-2024 End: 27-74-7094ojlf 1 tablet by mouth every twenty-four hours at bedtime QUEtiapine XR (SEROquel XR) 50 MG 24 hr tablet Take 50 mg by mouth at bedtime 09/13/2024 12/12/2024Discontinued (Other)radiopaque pvc markers-barium sulfate (SITZMARKS) 24 Markers (1 source)Start: 10-09-2024 End: 94-25-4960ksje 2 capsules by mouth onceradiopaque pvc markers-barium sulfate (SITZMARKS) 24 Markers Take 2 capsules by mouth one time onlyfor 1 dose. Take 2 capsules as directed. 2 capsule 10/09/2024 10/09/2024 ActiveSemaglutide- Weight Management (Wegovy) 0.25 MG/0.5ML solution auto-injector (20 sources)Start: 81-42-0908wmpkgh 0.25 mg by subcutaneous injection every week Semaglutide-Weight Management (Wegovy) 0.25 MG/0.5ML solution auto-injector Indications: Obesity (BMI 35.0-39.9 without comorbidity) Inject 0.25 mg under the skin 1 (one) time per week 2 mL 01/08/2025 ActiveStart: 14-98-4981flhniz 0.25 mg by subcutaneous injection every weekSemaglutide-Weight Management (Wegovy) 0.25 MG/0.5ML solution auto-injector Indications: Obesity (BMI 35.0- 39.9 without comorbidity) Inject 0.25 mg under the skin 1 (one) time per week 2 mL 01/07/2025 ActiveStart: 10-05-2023 End: 73-49-4416krizjw 0.25 mg by subcutaneous injection every weekSemaglutide- Weight Management (Wegovy) 0.25 MG/0.5ML solution auto-injector Indications: Overweight, Obesity (BMI 30.0-34.9) Inject 0.25 mg under the skin 1 (one) time per week 2 mL 10/05/2023 12/26/2023 Discontinued (Other)Start: 99-32-0083foujue 0.25 mg by subcutaneous injection every weekSemaglutide-Weight Management (Wegovy) 0.25 MG/0.5ML solution auto-injector Indications: Overweight, Obesity (BMI 30.0-34.9) Inject 0.25 mg under the skin 1 (one) time per week 2 mL 10/05/2023 ActivetiZANidine 4 mg oral tablet (20 sources)Central alpha-2 Adrenergic AgonistStart: 07-24-2024 End: 14-73-4557wePXRmymvi (ZANAFLEX) 4 mg tablet 10/31/2024 ActivetraMADol hydrochloride 50 mg oral tablet (11 sources)Opioid AgonistStart: 03-27-2024 End: 71-67-3205oatu 2 tablets by mouth every six hours for paintraMADol (Ultram) 50 MG tablet Indications: Acute right ankle pain Take 2 tablets (100 mg) by mouthevery 6 (six) hours if needed for severe pain for up to 5 days 40 tablet 03/27/2024 04/01/2024 ActiveStart: 54-81-3479pcbIPAba (ULTRAM) 50 mg tablet Take by mouth. 06/29/2022 ActiveStart: 78-02-2884wvoxcbub Oral Start Date: 06/29/22 Status: Ordered Repeat number: 1Start: 94-89-8495bxwlfykk Oral Start Date: 06/29/22 Status: Orderedvancomycin 125 mg oral capsule (2 sources)Glycopeptide AntibacterialStart: 05-23-2024 End: 71-89-2471nrln 1 capsule by mouth four times dailyvancomycin (VANCOCIN) 125 mg capsule Take 1 capsule by mouth four times daily for 14 days. 56 capsule 05/23/2024 06/06/2024 Active Completed/Discontinued Medications MedicationDrug Class(es)DatesSig (Normalized)Sig (Original)acetaminophen 325 mg / oxyCODONE hydrochloride 5 mg oral tablet (6 sources)Opioid AgonistStart: 06-12-2024 End: 57-23-6318tqbCFGWLW-acetaminophen (Percocet) 5-325 MG tablet Indications: Pain Take 1 tablet by mouth every 6(six) hours if needed for severe pain for up to 5 days TAKE 1 PILL P.O. Q.6H P.R.N. PAIN 15 tablet 06/19/2024 06/25/2024 DiscontinuedALPRAZolam 0.5 mg oral tablet (20 sources)BenzodiazepineStart: 06-19-2024 End: 41-18-4070sfkh 1 tablet by mouth in the morningALPRAZolam (Xanax) 0.5 MG tablet Indications: Anxiety , Bipolar disorder, in partial remission, most recent episode manic (CMS/HCC) Take 1 tablet (0.5 mg) by mouth in the morning and in the evening 60 tablet 06/19/2024 07/04/2024 Discontinued (Ineffective) Start: 05-10-2024 End: 09-19-7669cnnj 1 tablet by mouth in the morningALPRAZolam (Xanax) 0.5 MG tablet Indications: Anxiety , Bipolar disorder, in partial remission, most recent episode manic (CMS/HCC) Take 1 tablet (0.5 mg) by mouth in the morning and in the evening 60 tablet 05/10/2024 ActiveStart: 04-08-2024 End: 61-71-8848cxxg 1 tablet by mouth in the morningALPRAZolam (Xanax) 0.5 MG tablet Indications: Anxiety , Bipolar disorder, in partial remission, most recent episode manic (CMS/HCC) Take 1 tablet (0.5 mg) by mouth in the morning and in the evening 60 tablet 04/08/2024 05/08/2024 Discontinued (Reorder)Start: 12-04-2023 End: 15-51-8949jcyy 1 tablet by mouth in the morningALPRAZolam (Xanax) 0.5 MG tablet Indications: Anxiety , Bipolar disorder, in partial remission, most recent episode manic (CMS/HCC) Take 1 tablet (0.5 mg) by mouth in the morning and in the evening 60 tablet 01/09/2024 02/08/2024 ActiveStart: 30-40-4187yfuu 0.25 mg by mouth twice dailyALPRAZolam (XANAX) 0.5 mg tablet Take 0.25 mg by mouth two times a day. 0 02/18/2019 ActiveStart: 71-94-7449yfqh 1 tablet by mouth twice daily as needed for anxietyXanax 0.25 mg Tab 0.25 mg = 1 tab(s), Oral, BID, PRN as needed for anxiety, Refills(s) 0 Start Date: 06/12/18 Status: Ordered Repeat number: 1Comment on above:Take 0.25 mg by mouth twice daily. amoxicillin 875 mg oral tablet (1 source)Penicillin-class AntibacterialStart: 21-04-2936nmdi 1 tablet by mouth every twelve hoursAmoxicillin 875 MG 1 tablet Orally Twice a day for 7 days Apr, Not-Takingbaclofen 10 mg oral tablet (20 sources)gamma-Aminobutyric Acid-ergic AgonistStart: 12-26-2023 End: 54-40-4493jidh 1 tablet by mouth in the morning, then take 1 tablet by mouth in the evening, then take 1 tablet by mouth at bedtimebaclofen (Lioresal) 10 MG tablet Indications: Cervical radiculopathy , Acute nonintractable headache , unspecified headache type Take 1 tablet (10 mg) by mouth in the morning and 1 tablet (10 mg) in the evening and 1 tablet (10 mg) before bedtime. 90 tablet 12/26/2023 05/09/2024 Discontinued (Other)Start: 76-28-0598sygtomyf Oral, TID Start Date: 06/29/22 Status: Ordered Repeat number: 1Start: 18-48-7353mwkujfvg Oral, TID Start Date: 06/29/22 Status: OrderedStart: 05-25-2022 End: 74-96-1148jamqxpxm (LIORESAL) 10 mg tablet 05/25/2022 11/02/2022 Discontinuedbenzonatate 100 mg oral capsule (9 sources)Non-narcotic AntitussiveStart: 04-22-2024 End: 01-44-5250zucj 1 capsule by mouth three times daily as needed for cough benzonatate (Tessalon Perles) 100 MG capsule Indications: Mild intermittent asthma without complication (CMS/HCC) Take 1 capsule (100 mg) by mouth 3 (three) times a day as needed for cough for up to 10 days Do not crush or chew. 20 capsule 04/22/2024 05/09/2024 Discontinued (Other)cholecalciferol 0.125 mg oral capsule (8 sources)Vitamin DStart: 02-06-2023 End: 40-47-3808mlxc 1 capsule by mouth once in the morningcholecalciferol (Vitamin D-3) 125 MCG (5000 UT) capsule Indications: Vitamin D deficiency Take 1 capsule (125 mcg) by mouth in the morning. 90 capsule 3 02/06/2023 01/22/2024 Discontinuedcitalopram 10 mg oral tablet (20 sources)Serotonin Reuptake InhibitorStart: 08-19-2024 End: 27-24-1279qqjg 5 tablets by mouth once dailycitalopram (CeleXA) 10 MG tablet Take 50 mg by mouth Daily 08/19/2024 09/02/2024 Discontinued (Therapy completed)Start: 58-87-3160befz 1 tablet by mouth once dailycitalopram (CeleXA) 10 MG tablet Take 10 mg by mouth Daily 08/19/2024 Activedoxycycline hyclate 100 mg oral capsule (13 sources)Tetracycline-class DrugStart: 03-20-2024 End: 42-43-5240gaccddcgrfu (Vibramycin) 100 MG capsule Indications: Cystitis Take 1 capsule (100 mg) by mouth in the morning and 1 capsule (100 mg) before bedtime. Take with at least 8 ounces (large glass) of water, do not lie down for 30 minutes after. 120 capsule 03/20/2024 04/18/2024 Discontinued (Therapy compl eted)0.3 ml EPINEPHrine 1 mg/ml prefilled syringe (20 sources)alpha-Adrenergic Agonist, beta-Adrenergic Agonist, Catecholamine Start: 04-18-2023 End: 62-73-0991LPKVNFEjejy (Adrenalin) 0.3 MG/0.3ML injection Indications: Anaphylaxis, sequela Inject 0.3 mL (0.3mg) into the shoulder, thigh, or buttocks 1 (one) time for 1 dose 1 each 2 04/18/2023 06/25/2024 DiscontinuedEpiPen prn Activeestrogens, conjugated (half-way) 0.625 mg/ml vaginal cream (20 sources)EstrogenStart: 02-06-2024 End: 91-48-6693Ijrqohpwq Conjugated (Premarin) 0.625 MG/GM cream Indications: Dyspareunia in female Insert 0.5 Applicatorfuls into the vagina at bedtime 30 g 3 02/06/2024 03/07/2024 ExpiredStart: 05-26-2022 End: 30-63-1626SAHKHDOK vaginal cream 05/26/2022 11/02/2022 DiscontinuedPremarin 0.625 MG/GM as directed Vaginal 3 TIMES A WEEK ActiveEthinyl Estradiol / norgestimate (16 sources)Progestin, EstrogenStart: 03-26-2019 End: 66-17-9951IJEUITTX 0.25-35 mg-mcg per tablet 03/26/2019 11/02/2022 DiscontinuedStart: 03-26-2019 End: 10-87-4511ZFHCTCUV 0.25-35 mg-mcg per tabletStart: 29-17-6899AJXMHIZQ 0.25- 35 mg-mcg per tabletfurosemide 20 mg oral tablet (20 sources)Loop DiureticStart: 02-06-2024 End: 15-13-7026lmoi 1 tablet by mouth once dailyfurosemide (Lasix) 20 MG tablet Indications: Localized edema Take 1 tablet (20 mg) by mouth Daily 30 tablet 02/06/2024 05/09/2024 Discontinued (Other)lisdexamfetamine dimesylate 10 mg oral capsule (19 sources)Central Nervous System Stimulant End: 46-61-1688ookp 1 capsule by mouth once dailylisdexamfetamine (VYVANSE) 10 mg capsule Take 10 mg by mouth once daily. 12/19/2023 Discontinued (Other)take 1 capsule by mouth every twenty-four hoursVyvanse 50 MG 1 capsule in the morning Orally Once a day ActiveComment on above:Take 10 mg by mouth once daily. LORazepam 1 mg oral tablet (20 sources)BenzodiazepineStart: 08-01-2024 End: 39-90-5559urqt 1 tablet by mouth in the morningLORazepam (Ativan) 1 MG tablet Indications: Anxiety , PTSD (post-traumatic stress disorder) (CMS/HCC) Take 1 tablet (1 mg) by mouth in the morning and in the evening 60 tablet 08/01/2024 09/02/2024 Discontinued (Other)Start: 07-04-2024 End: 32-38-1150jzvq 1 tablet by mouth in the morningLORazepam (Ativan) 0.5 MG tablet Indications: Anxiety , PTSD (post-traumatic stress disorder) (CMS/HCC) Take 1 tablet (0.5 mg) by mouth in the morning and in the evening 30 tablet 08/01/2024 09/02/2024 Discontinued (Other)meloxicam 15 mg oral tablet (20 sources)Nonsteroidal Anti-inflammatory DrugStart: 02-21-2024 End: 96-95-1970mkoh 1 tablet by mouth once dailymeloxicam (Mobic) 15 MG tablet Indications: Acute right ankle pain Take 1 tablet (15 mg) by mouth Daily 30 tablet 2 02/21/2024 05/09/2024 Discontinued (Other)50/50 release 24 hr methylphenidate hydrochloride 20 mg extended release oral capsule (16 sources)Central Nervous System StimulantStart: 03-28-2022 End: 84-14-5517cfid 1 capsule by mouth once daily in the morningmethylphenidate LA (RITALIN LA) 20 mg 24 hr capsule TAKE 1 CAPSULE BY MOUTH EVERY DAY IN THE MORNING FOR 30 DAYS 03/28/2022 11/02/2022 DiscontinuedComment on above:TAKE 1 CAPSULE BY MOUTH EVERY DAY IN THE MORNING FOR 30 DAYSNaproxen (1 source)Nonsteroidal Anti-inflammatory DrugNaproxen Not-Takingondansetron 4 mg disintegrating oral tablet (20 sources)Serotonin-3 Receptor AntagonistStart: 05-27-2024 End: 61-36-9078qktd 1 tablet by mouth every six hours as needed for nausea and vomiting and nausea and nauseaondansetron ODT (Zofran-ODT) 4 MG disintegrating tablet Indications: Nausea Take 1 tablet (4 mg) bymouth every 6 (six) hours if needed for nausea or vomiting 30 tablet 2 05/27/2024 06/26/2024 ExpiredStart: 04-01-2024 End: 78-92-1881wzqu 1 tablet by mouth every six hours as needed for nausea and vomiting and nausea and nauseaondansetron ODT (Zofran-ODT) 4 MG disintegrating tablet Indications: Nausea Take 1 tablet (4 mg) bymouth every 6 (six) hours if needed for nausea or vomiting 30 tablet 2 04/01/2024 05/01/2024 ExpiredStart: 02-28-2023 End: 47-94-6955evto 1 tablet by mouth every eight hours as neededondansetron (ZOFRAN) 4 mg tablet Take 4 mg by mouth every 8 hours as needed for nausea/vomiting. 02/28/2023 ActiveStart: 08-31-2022 End: mg, INTRAVENOUS, ONCE, 1 dose, On Mon08/31/22 at 1600, Give IV push over 2 minutesStart: 06-30-2022 End: mg, INTRAVENOUS, ONCE, 1 dose, On Mon06/30/22 at 1300, Give IV push over 2 minutesStart: 06-30-2022 End: mg, INTRAVENOUS, ONCE, 1 dose, On Mon06/30/22 at 1230, Give IV push over 2 minutesStart: 02-08-2019 End: 69-55-0218wmrp 1 tablet by mouth three times daily as neededondansetron orally disintegrating (ZOFRAN ODT) 8 mg disintegrating tablet DISSOLVE 1 TABLET ON THE TONGUE 3 TIMES A DAY NEEDED 0 02/08/2019 11/02/2022 Discontinued Comment on above:DISSOLVE 1 TABLET ON THE TONGUE 3 TIMES A DAY NEEDED pantoprazole 40 mg delayed release oral tablet (20 sources)Proton Pump InhibitorStart: 07-04-2022 End: 04-71-1151hhss 1 tablet by mouth twice daily before mealtimepantoprazole DR (PROTONIX) 40 mg tablet Indications: Helicobacter pylori gastritis Take 1 tablet bymouth twice daily before meals for 14 days. 28 tablet 09/01/2022 12/19/2023 Discontinued (Other)Start: 06-30-2022 End: 18-79-6457lfcp 1 tablet by mouth once dailypantoprazole DR (PROTONIX) 40 mg tablet Take 1 tablet by mouth once daily. 30 tablet 3 06/30/2022 11/02/2022 DiscontinuedComment on above:Take 1 tablet by mouth once daily.Take 1 tablet by mouth twice daily before meals for 10 days.Take 1 tablet by mouth twice daily before meals for 14 days.promethazine hydrochloride 12.5 mg oral tablet (17 sources)PhenothiazineStart: 04-11-2024 End: 01-21-7334dwff 1 tablet by mouth every six hours as needed for nausea and vomiting and nausea and nauseapromethazine (Phenergan) 12.5 MG tablet Indications: Nausea Take 1 tablet (12.5 mg) by mouth every 6 (six) hours if needed for nausea or vomiting Take 1 tablet by mouth every 6 hours as needed for nausea. 30 tablet 2 04/11/2024 05/09/2024 Discontinued (Other)Start: 12-26-2023 End: 83-13-8442zoli 1 tablet by mouth every six hours for nauseapromethazine (Phenergan) 25 MG tablet Indications: Acute nonintractable headache, unspecified headache type , Nausea and vomiting, unspecified vomiting type Take 1 tablet (25 mg) by mouth every 6 (six) hours if needed for nausea or vomiting for up to 7 days 30 tablet 12/26/2023 01/02/2024 Activeprucalopride 2 mg oral tablet (12 sources)Start: 10-17-2022 End: 13-05-5067xeaw 1 tablet by mouth once dailyprucalopride 2 mg tablet (MOTEGRITY) Indications: Chronic idiopathic constipation Take 1 tablet (2 mg) by mouth once daily. 30 tablet 6 10/17/2022 12/19/2023 Discontinued (Other)Comment on above:Take 1 tablet (2 mg) by mouth once daily.0.25 mg, 0.5 mg dose 1.5 ml semaglutide 1.34 mg/ml pen injector (20 sources)Start: 06-07-2024 End: 01-30-9731myuaubpdkcg (Ozempic) injection 0.25 mgSemaglutide,0.25 or 0.5MG/DOS, (Ozempic, 0.25 or 0.5 MG/DOSE,) 2 MG/3ML solution pen-injector (7 sources)Start: 08-23-2024 End: 75-12-4558Zwfglbynxqw,0.25 or 0.5MG/DOS, (Ozempic, 0.25 or 0.5 MG/DOSE,) 2 MG/3ML solution pen-injector Indications: Prediabetes , Obesity (BMI 30.0-34.9) , Overweight Inject 0.5 mg under the skin 1 (one) timeper week 3 mL 3 08/23/2024 09/02/2024 Discontinued (Other)Start: 20-02-0819Khvcobdlwdo,0.25 or 0.5MG/DOS, (Ozempic, 0.25 or 0.5 MG/DOSE,) 2 MG/3ML solution pen-injector Indications: Prediabetes , Obesity (BMI 30.0-34.9) , Overweight Inject 0.5 mg under the skin 1 (one) timeper week 3 mL 3 08/23/2024 ActiveStart: 97-17-9511Turpyigxion,0.25 or 0.5MG/DOS, (Ozempic, 0.25 or 0.5 MG/DOSE,) 2 MG/3ML solution pen-injector Indications: Prediabetes , Obesity (BMI 30.0-34.9) , Overweight Inject 0.5 mg under the skin 1 (one) timeper week 3 mL 3 08/13/2024 Activesucralfate 1000 mg oral tablet (2 sources)Aluminum ComplexStart: 06-30-2022 End: 27-74-4609dxgc 1 tablet by mouth twice daily before mealtimesucralfate (CARAFATE) 1 gram tablet Take 1 tablet by mouth twice daily before meals. 60 tablet 06/30/2022 07/30/2022 ExpiredComment on above:Take 1 tablet by mouth twice daily before meals.tenapanor 50 mg oral tablet (8 sources)Start: 11-02-2022 End: 39-09-5674tvfp 1 tablet by mouth twice dailytenapanor (IBSRELA) 50 mg tablet Indications: Irritable bowel syndrome with constipation Take 1 tablet (50 mg) by mouth twice daily. 60 tablet 5 11/02/2022 12/19/2023 Discontinued (Other) Comment on above:Take 1 tablet (50 mg) by mouth twice daily. Problems Active Problems Problem ClassificationProblemDateDocumented DateEpisodic/ChronicAbdominal pain (18 sources)Right sided abdominal pain; Translations: [Unspecified abdominal pain]Onset: 22-34-5679EpkimmgwWaoajvng foot deformities (2 sources)Left foot drop; Translations: [Foot drop, left foot]02-12-2025 EpisodicAcute bronchitis (2 sources)Acute bronchitis; Translations: [Acute bronchitis, unspecified] 90-55-5388GituqbegFnznvlg-related disorders (20 sources)Alcohol withdrawal delirium; Translations: [Alcohol withdrawal delirium]Onset: [id number] and rectal conditions (2 sources)Rectal pain; Translations: [Other specified diseases of anus and rectum]11-17-0939BvsejfvzNslhjky disorders (20 sources)Anxiety disorder, unspecified; Translations: [Anxiety]Onset: [id number] (20 sources)Exercise induced bronchospasm; Translations: [Exercise induced bronchospasm]Onset: [id number]-ygaqdcf, conduct, and disruptive behavior disorders (20 sources)Attention deficit hyperactivity disorder, predominantly inattentive type; Translations: [Attention-deficit hyperactivity disorder, predominantly inattentive type]Onset: [id number] infection; unspecified site (1 source)Helicobacter pylori [H. pylori] as the cause of diseases classified elsewhere; Translations: [Helicobacter pylori gastritis]Onset: 02-25-2025 EpisodicCoronary atherosclerosis and other heart disease (20 sources)Atherosclerosis of coronary artery without angina pectoris; Translations: [Atherosclerotic heart disease of tribal coronary artery without angina pectoris]Onset: [id number] mellitus without complication (20 sources)Type 2 diabetes mellitus; Translations: [Type 2 diabetes mellitus without complications]Onset: 934123-35-8743AcdxljkKceiqbcj mellitus without complication (20 sources)Hyperglycemia; Translations: [Hyperglycemia, unspecified]Onset: 623761-36-6985RhgtpaqgMaiotnytt of lipid metabolism (20 sources)Hypercholesterolemia; Translations: [Pure hypercholesterolemia, unspecified]Onset: 485605-20-4797ZwufilnZpgrlydtyelbun and diverticulitis (20 sources)Diverticulosis of colon; Translations: [Diverticulosis of large intestine without perforation or abscess without bleeding]Onset: 09-23-2022 Resolved: 170219-19-5526MenwqwlP Codes: Fall (1 source)Fall in homeOnset: 038255-86-2157Qoggccdgohuiy (1 source)Endometriosis (clinical); Translations: [Other endometriosis] 26-14-1987CtptnfaDnmhmply; convulsions (20 sources)Idiopathic generalized epilepsy; Translations: [Generalized idiopathic epilepsy and epileptic syndromes, not intractable, without status epilepticus]Onset: 928472-09-0879ZbtxgcfGmoxyqlprs disorders (20 sources)Gastroesophageal reflux disease without esophagitis; Translations: [Gastro-esophageal reflux disease without esophagitis]Onset: 07-09-2019 64-51-0175HscqxdpWdqrcfsqvp disorders (1 source)Esophagitis; Translations: [Esophagitis]Onset: 14-37-7598Lqtrjxdp Essential hypertension (20 sources)Hypertensive disorder; Translations: [Essential (primary) hypertension]Onset: 748098-20-1086YzuvodfOjawe and electrolyte disorders (4 sources)Hypokalemia; Translations: [Hypokalemia]34-76-9679DlnitztgJzxexvfbh and duodenitis (1 source)Gastritis, unspecified, without bleeding; Translations: [Helicobacter pylori gastritis]Onset: 43-93-6533DoetdvtpMnthyrzlcsyjbq ulcer (except hemorrhage) (2 sources)Peptic ulcer; Translations: [Peptic ulcer, site unspecified, unspecified as acute or chronic, without hemorrhage or perforation]08-31-2022 ChronicGenitourinary symptoms and ill-defined conditions (3 sources)Genuine stress incontinence; Translations: [Stress incontinence (female) (male)]Onset: 054532-48-8870PdhyxfeXaapjafg; including migraine (20 sources)Tension-type headache; Translations: [Tension-type headache, unspecified, not intractable]Onset: 09-23-2022 Resolved: 022895-16-7867BedxfkgYhkeshugour (2 sources)Hemorrhoids; Translations: [Unspecified hemorrhoids]10-01-2024 EpisodicHepatitis (20 sources)Nonalcoholic steatohepatitis; Translations: [Nonalcoholic steatohepatitis (ENGLISH)]Onset: 60-80-7662AwobplcCabmylhkulmbq and screening for infectious disease (5 sources)Encounter for screening for human papillomavirus (HPV); Translations: [Encounter for screening for infections with a predominantly sexual mode of transmission]Onset: 78-52-1037JsuzrvfsFkwuxjs control disorders, NEC (20 sources)Trichotillomania; 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]Onset: 07-04-2024 70-37-1972BopkfjpDvwtbht and fatigue (2 sources)Fatigue; Translations: [Other fatigue]08-71-7714NzuotzwhMxywhzuoxcsyz mental health disorders (20 sources)Hypersexuality state; Translations: [Other sexual dysfunction not due to a substance or known physiological condition]Onset: 378057-65-0971 ChronicMood disorders (20 sources)Major depressive disorder, single episode, unspecified; Translations: [Bipolar disorder, most recent episode manic]Onset: 10-22-2021 89-26-5129UyhtzhhPifouw and vomiting (9 sources)Bilious vomiting; Translations: [Bilious vomiting]EpisodicNonspecific chest pain (20 sources)Chest pain; Translations: [Chest pain, unspecified]Onset: 01-06-2025 29-43-0782ZmcqeitsKyzexfysqll deficiencies (20 sources)Vitamin D deficiency; Translations: [Vitamin D deficiency, unspecified]Onset: 195300-57-3756QjwqqqoQnhugaubr or stenosis of precerebral arteries (20 sources)Bilateral atherosclerosis of carotid arteries; Translations: [Occlusion and stenosis of bilateral carotid arteries]Onset: 11-16-2020 02-95-0315MzvqyvkKksuxibsdtjcgg (20 sources)Osteoarthritis of knee; Translations: [Osteoarthritis of knee, unspecified]Onset: 114794-48-5085AzlqdvtXwpvo acquired deformities (4 sources)Contracture of joint of right ankle; Translations: [Contracture, right ankle]33-37-6819XhmqyxgVvoar aftercare (3 sources)Surgical follow-up; Translations: [Encounter for follow-up examination after completed treatment for conditions other than malignant neoplasm]76-17-3910IhsbklatZkyxl bone disease and musculoskeletal deformities (4 sources)Osteochondritis dissecans of right ankle; Translations: [Osteochondritis dissecans, right ankle andjoints of right foot]05-08-2024 ChronicOther connective tissue disease (7 sources)Pain in right foot; Translations: [Pain in right foot]05-15-2024 EpisodicOther connective tissue disease (8 sources)Spasm; Translations: [Other muscle spasm]Onset: EpisodicOther connective tissue disease (6 sources)Synovitis and tenosynovitis; Translations: [Other synovitis and tenosynovitis, right ankle and foot]56-13-8127DljcwcfcGngxi connective tissue disease (6 sources)Enthesopathy of lower limb; Translations: [Other enthesopathy of right foot and ankle]03-54-2996VgmlgsrjPmmpk connective tissue disease (3 sources)Other specified disorders of muscle; Translations: [Pelvic floor dysfunction]Onset: 59-42-1910IusdiijuPxfef female genital disorders (4 sources)Unspecified dyspareunia; Translations: [UNSPECIFIED DYSPAREUNIA] Onset: 00-18-4872UbdgrzlPvzwv female genital disorders (5 sources)Pain in female genitalia on intercourse; Translations: [Unspecified dyspareunia]61-04-8292PxengbjQhais female genital disorders (6 sources)Dyspareunia; Translations: [Other specified dyspareunia]07-10-2024 ChronicOther female genital disorders (2 sources)Vulvodynia; Translations: [Vulvodynia, unspecified]43-86-9498Kwwicpv Other female genital disorders (1 source)Vulvodynia, unspecified; Translations: [Vulvodynia]Onset: 12-30-2024 ChronicOther female genital disorders (1 source)Other specified dyspareunia; Translations: [Other specified dyspareunia]Onset: 33-16-4797DxsszblTnmbe female genital disorders (1 source)H/O: dyspareunia; Translations: [Personal history of other diseases of the female genital tract]44-80-2578FepuglueNyvxm female genital disorders (2 sources)Vaginal dryness; Translations: [Other specified noninflammatory disorders of vagina]82-68-5696HlhapdubSlyxi female genital disorders (1 source)Other specified noninflammatory disorders of vagina; Translations: [Vaginal dryness]Onset: 34-01-3321MxkuvyufGfnzf gastrointestinal disorders (20 sources)Irritable bowel syndrome characterized by constipation; Translations: [Irritable bowel syndrome with constipation]Onset: 09-23-2022 38-02-9437AcdyuqwBvvhy gastrointestinal disorders (1 source)Chronic idiopathic constipation; Translations: [Chronic idiopathic constipation]47-83-0051MptitzbWrgcc gastrointestinal disorders (1 source)Irritable bowel syndrome with constipation; Translations: [Irritable bowel syndrome with constipation]Onset: 54-97-7929RogqlrqEfhnm gastrointestinal disorders (1 source)Chronic idiopathic constipation; Translations: [Chronic idiopathic constipation]Onset: 39-02-2031HqzvgraPlpos gastrointestinal disorders (1 source)History of diverticulitis; Translations: [Personal history of other diseases of the digestive system]EpisodicOther gastrointestinal disorders (15 sources)Chronic constipation; Translations: [Other constipation]Onset: 050910-20-3816OodruuldGaeii injuries and conditions due to external causes (1 source)Unspecified foreign body in larynx causing other injury, initial encounter; Translations: [Choking,initial encounter]Onset: 48-02-8459Wiygpwiq Other liver diseases (1 source)Steatosis of liver; Translations: [Fatty (change of) liver, not elsewhere classified]ChronicOther liver diseases (2 sources)Lesion of liver; Translations: [Liver disease, unspecified]Chronic Other liver diseases (1 source)Liver cyst; Translations: [Other specified diseases of liver]Chronic Other liver diseases (1 source)Other specified diseases of liverChronicOther liver diseases (2 sources)Fatty (change of) liver, not elsewhere classified; Translations: [Metabolic dysfunction-associated steatotic liver disease (MASLD)]Onset: 04-30-0845ZnchbboEgyil liver diseases (5 sources)Abnormal levels of other serum enzymes; Translations: [ABNORMAL LEVELS OTHER SERUM ENZYMES]Onset: 76-21-8514TulgkgfeCvthn lower respiratory disease (2 sources)Dyspnea; Translations: [Shortness of breath]EpisodicOther nervous system disorders (20 sources)Poor concentration; Translations: [Attention and concentration deficit]Onset: 483128-79-2954AjihdleWtmir nervous system disorders (2 sources)Chronic pain; Translations: [Other chronic pain]92-78-1337Ypfzrzc Other nervous system disorders (1 source)Other chronic pain; Translations: [Chronic pelvic pain in female] Onset: 73-28-6478SgqqrdgHzpzg nervous system disorders (4 sources)Paresthesia of upper limb; Translations: [Anesthesia of skin] 02-07-0391SkzfrdznSwbrv nervous system disorders (4 sources)Facial paresthesia; Translations: [Anesthesia of skin]10-08-2024 EpisodicOther nervous system disorders (6 sources)Numbness and tingling sensation of skin; Translations: [Anesthesia of skin]15-62-7242MturghiaVcgio non-traumatic joint disorders (1 source)Acute ankle pain; Translations: [Pain in right ankle and joints of right foot]77-77-8661LkxiwhdlLumec non-traumatic joint disorders (2 sources)Pain in left shoulder; Translations: [Pain in joint, shoulder region] 11-86-0618GmdnyqxnExscr non-traumatic joint disorders (11 sources)Instability of joint of right ankle; Translations: [Other instability, right ankle]89-68-1849QieukaynEudoh nutritional; endocrine; and metabolic disorders (20 sources)Disorder of carbohydrate metabolism; Translations: [Other disorders of intestinal carbohydrate absorption]Onset: 223119-28-3956NirpzatZeaww nutritional; endocrine; and metabolic disorders (20 sources)Body mass index 30+ - obesity; Translations: [Obesity, unspecified] Onset: 845606-17-7205DjglzlhXlzal nutritional; endocrine; and metabolic disorders (20 sources)Nephrocalcinosis; Translations: [Other disorders of calcium metabolism]Onset: 025240-57-0974TkcojrgYbusr nutritional; endocrine; and metabolic disorders (20 sources)Obesity caused by energy imbalance; Translations: [Morbid (severe) obesity due to excess calories]Onset: 931490-91-7141HbgysgnHqyac nutritional; endocrine; and metabolic disorders (20 sources)Obese class II; Translations: [Obesity, class 2]Onset: 12-16-2024 24-43-9963UxgeyhoCqxiwql cyst (20 sources)Other ovarian cyst, unspecified side; Translations: [Unspecified ovarian cyst, right side]Onset: 14-67-5807LvogacfuModqbcepmm and visceral atherosclerosis (20 sources)Atherosclerosis of aorta; Translations: [Atherosclerosis of aorta] Onset: 031768-60-9738NexvhukWczcghycgai; intervertebral disc disorders; other back problems (20 sources)Inflammation of sacroiliac joint; Translations: [Sacroiliitis, not elsewhere classified]Onset: 296846-02-5559CrweclqIyrddosxvqp; intervertebral disc disorders; other back problems (20 sources)Cervical radiculopathy; Translations: [Radiculopathy, cervical region]Onset: 09-23-2022 Resolved: 944520-01-4395MlaupkriSszbkimct-fiubeal disorders (1 source)Drug-induced sforcqjzm35-72-0391JvohgymeFgmijkhuhyw injury; contusion (2 sources)Contusion of right ankle; Translations: [Contusion of right ankle, initial encounter]81-77-8564MmtsoobzOlmkmzq disorders (20 sources)Goiter; Translations: [Nontoxic goiter, unspecified]Onset: 506922-66-9164AahlqncKyxixscogooj (3 sources)LOW BACK PAIN, UNSPECIFIED; Translations: [LOW BACK PAIN, UNSPECIFIED]Onset: 73-67-0765Nadjxwzvaakx (20 sources)Patient on antidepressant monitoring planOnset: 293409-56-9631 Unclassified (20 sources)Baseline PHQ-9Onset: 584763-67-3713Xkzbvkjrcrwt (1 source)History of KVHI-YmL-2Astld: 870263-42-2845Wedlbhoxlqsg (1 source)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Onset: 340800-75-8322Vwhemdoshlio (1 source)Sprain of talofibular ligament of right ttmev12-85-9901Eruragmyjoay (1 source)Surgical wound findingOnset: Past or Other Problems Problem ClassificationProblemDateDocumented DateEpisodic/ChronicAlcohol-related disorders (20 sources)Alcohol use, unspecified with alcohol-induced psychotic disorder, unspecified; Translations: [Unspecified alcohol-induced mental disorders]Onset: 433588-46-5957NdzcpwmwZhbmhinz reactions (20 sources)Anaphylaxis; Translations: [Anaphylactic shock, unspecified, initial encounter]Onset: 360307-73-7793DzurtcegKyvwblu tract disease (20 sources)Cholelithiasis without obstruction; Translations: [Calculus of gallbladder without cholecystitis without obstruction]Onset: 03-23-2023 58-36-0492HsnghfpgRnkgzqeq of urinary tract (20 sources)Kidney stone; Translations: [Calculus of kidney]Onset: 06-30-2022 92-62-5781KcfjzmyrXykuaqp dysrhythmias (20 sources)Palpitations; Translations: [Palpitations]Onset: 08-13-2024 60-06-9752NaytylprFvmgvdudqljhg of surgical procedures or medical care (20 sources)Surgical wound finding; Translations: [Disruption of external operation (surgical) wound, not elsewhere classified, sequela]Onset: 09-25-2024 81-83-7841FbqgyxnwPxxezhfnsp associated with dizziness or vertigo (20 sources)Dizziness; Translations: [Dizziness and giddiness]Onset: 12-13-2022 47-29-6819BtwqfbmsG Codes: Fall (20 sources)Unspecified fall, initial encounter; Translations: [Fall in home] Onset: 213036-52-0270SjyhavcgWksadisswdqahprh hemorrhage (3 sources)Gastrointestinal hemorrhage; Translations: [Hemorrhage of anus and rectum]Onset: 377686-43-4925IbnpbgpmGmnsewlziihvd symptoms and ill-defined conditions (20 sources)Dysuria; Translations: [Increased frequency of urination]Onset: 12-12-2022 Resolved: 347861-83-0209YfwesaehAylwphxs; including migraine (20 sources)Acute headache; Translations: [Acute nonintractable headache]Onset: 319713-50-8401TqeqxjmrMvny disorders (20 sources)Mood swings; Translations: [Emotional lability]Onset: 09-23-2022 00-87-4940VpjbjpurWkxw disorders (20 sources)Mood disordersOnset: 10-08-2024 Resolved: 035435-14-0586Laueytp (20 sources)Dermatophytosis; Translations: [Dermatophytosis, unspecified]Onset: 018240-75-9904FcmgyzphDusx wounds of extremities (20 sources)Laceration of right knee; Translations: [Laceration without foreign body, right knee, subsequent encounter]Onset: 09-10-2024 Resolved: 306620-30-5785HjpgfcbhZixb wounds of extremities (20 sources)Laceration of left knee; Translations: [Laceration without foreign body, left knee, sequela]Onset: 09-10-2024 Resolved: 621552-56-7590XhzfszbfCfuwx aftercare (20 sources)Postoperative visit; Translations: [Encounter for other specified surgical aftercare]Onset: 04-18-2023 Resolved: 849242-26-8459PlbuudwoXiegw circulatory disease (20 sources)Elevated blood pressure; Translations: [Elevated blood-pressure reading, without diagnosis of hypertension]Onset: 982017-54-8303Qyntqled Other connective tissue disease (20 sources)Pelvic floor dysfunction; Translations: [Other specified disorders of muscle]Onset: 509823-31-5159RwmocjogJrgvb connective tissue disease (1 source)Other muscle spasm; Translations: [Muscle spasm]Onset: 10-11-2024 EpisodicOther disorders of stomach and duodenum (20 sources)Gastroparesis syndrome; Translations: [Gastroparesis]Onset: 34-29-5279ReilbxrxRmebw disorders of stomach and duodenum (1 source)Gastroparesis; Translations: [Gastroparesis]Onset: 29-46-7312Kuxcckhb Other gastrointestinal disorders (20 sources)Dysphagia; Translations: [Dysphagia, unspecified]Onset: 09-23-2022 85-20-0595UczwkyhbJlkup gastrointestinal disorders (20 sources)History of pancreatitis; Translations: [Personal history of other diseases of the digestive system]Onset: 306073-96-1480JpmxzfngLdwin gastrointestinal disorders (2 sources)Other constipation; Translations: [Chronic constipation]Onset: 30-60-0256WoskqwqcZuhxn infections; including parasitic (20 sources)Personal history of other infectious and parasitic diseases; Translations: [History of COVID-19]Onset: 354673-44-1370FkzqyvxnGqukq injuries and conditions due to external causes (20 sources)Injury of right ankle; Translations: [Unspecified injury of right ankle, subsequent encounter]Onset: 02-06-2024 Resolved: 833566-29-9104VzdtjzqjTxabx liver diseases (20 sources)Elevated liver enzymes level; Translations: [Abnormal levels of other serum enzymes]Onset: 200357-71-1986AhzconudYktdh lower respiratory disease (20 sources)Cough; Translations: [Cough]Onset: 483469-62-1512YiwguovjFvxtz lower respiratory disease (20 sources)Snoring; Translations: [Snoring]Onset: 558446-49-0389Coopfsxt Other nervous system disorders (20 sources)Involuntary movement; Translations: [Unspecified abnormal involuntary movements]Onset: 293725-76-7040VciovcybRszvg nervous system disorders (20 sources)Pain of skin; Translations: [Other disturbances of skin sensation] Onset: 663383-02-8557HlfacgpcIddyy nervous system disorders (20 sources)Tremor; Translations: [Tremor, unspecified]Onset: 09-23-2022 70-21-6602VgerfpiaHwihd non-traumatic joint disorders (20 sources)Shoulder pain; Translations: [Pain in left shoulder]Onset: 766444-42-5661KprrwkgvUhjlg nutritional; endocrine; and metabolic disorders (20 sources)Obese class I; Translations: [Obesity (BMI 30.0-34.9)]Onset: 09-23-2022 Resolved: 419316-28-5185VwxyrajJqdab nutritional; endocrine; and metabolic disorders (20 sources)Overweight; Translations: [Overweight]Onset: 102943-35-4703 EpisodicOther nutritional; endocrine; and metabolic disorders (20 sources)Weight increased; Translations: [Abnormal weight gain]Onset: 235548-76-8877DqbgjkbkJendm nutritional; endocrine; and metabolic disorders (4 sources)Weight gain; Translations: [Abnormal weight gain]Onset: 10-03-2023 51-72-3655TnibapojRnltk screening for suspected conditions (not mental disorders or infectious disease) (20 sources)Ultrasound scan abnormal; Translations: [Abnormal findings on diagnostic imaging of other specifiedbody structures]Onset: 09-23-2022 Resolved: 00-75-5526FyiirxpXuxym screening for suspected conditions (not mental disorders or infectious disease) (20 sources)Encounter for screening for malignant neoplasm of cervix; Translations: [Other specified abnormal findings of blood chemistry]Onset: 69-74-3940WzykapcpSvazv skin disorders (20 sources)Vesicular eczema; Translations: [Dyshidrosis [pompholyx]]Onset: 852789-25-1387ZtaexdccFfzes upper respiratory infections (20 sources)Maxillary sinusitis; Translations: [Chronic maxillary sinusitis] Onset: 09-23-2022 Resolved: 182885-34-8559JzmxfodYqkloxdjwp disorders (not diabetes) (20 sources)Biliary acute pancreatitis without necrosis or infection; Translations: [Acute pancreatitis withoutnecrosis or infection, unspecified] Onset: 264461-81-4888FanlodlnThldxywy codes; unclassified (1 source)Acquired absence of both cervix and uterus; Translations: [ACQUIRED ABSENCE BOTH CERVIX AND UTERUS]Onset: 65-29-1567HljdzxhwNdnixxsd codes; unclassified (20 sources)Insomnia; Translations: [Insomnia, unspecified]Onset: 09-23-2022 81-36-0762LefqouutQogubsst codes; unclassified (20 sources)Localized edema; Translations: [Localized edema]Onset: 02-06-2024 59-75-3003PytiasnaRjlcghy and strains (20 sources)Sprain of talofibular ligament of right ankle; Translations: [Sprain of other ligament of right ankle, initial encounter]Onset: 04-01-2024 Resolved: 542084-13-1457XcjkhbcsZdixygsye-ebxvncn disorders (20 sources)Smoker; Translations: [Nicotine dependence]Onset: 09-23-2022 Resolved: 667980-27-0196KtywafjJwwgxnr on above:Added secondary to documentation in Social History.Syncope (5 sources)Syncope and collapse; Translations: [Syncope and collapse]Onset: 937999-15-8637SwedsdnyQwogoooqouxu (1 source)LOW BACK PAIN, UNSPECIFIED; Translations: [LOW BACK PAIN, UNSPECIFIED] Onset: 08-37-9201Vmpvzpeakodl (2 sources)Injury of right kocma10-88-4810Fjieacibwjwt (2 sources)Acute pain of left kehuhqgq41-71-5604Aupheup tract infections (20 sources)Recurrent urinary tract infection; Translations: [Urinary tract infectious disease]Onset: 06-29-2022 Resolved: 220400-68-4266UabkqucvDniql infection (20 sources)COVID-19; Translations: [Other specified viral infection]Onset: 11-30-2022 Resolved: 252159-56-9322Lzskybav Results Test NameValueInterpretationReference RangeFacilityANES POSTPROC EVALon 63-55-1614GRAM POSTPROC EVALHNO ID: [id number] Author: JOEL PRYOR APRN.CRNA Service: Anesthesiology Author Type: Nurse Acupuncture Physician Type: Anesthesia Postprocedure Evaluation Filed: 02/25/2025 13:52 Note Text: POST ANESTHESIA EVALUATION NOTE : 1990 Procedure Summary Date: 02/25/25 Room / Location: Ambulatory Surgery Anesthesia Start: 1325 Anesthesia Stop: 1335 Procedure: EGD - THERAPEUTIC, EUS, OR TUBE INTERVENTIONS Diagnosis: Choking, initial encounter Gastroesophageal reflux disease, unspecified whether esophagitis present Helicobacter pylori gastritis Gastroparesis (Dysphagia) Scheduled Providers: Carol Winn MD; Lindsey Buckley RN; Joel Pryor APRN.CHIEF PRIVACY OFFICER Responsible Provider: Joel Pryor APRN.CRNA Anesthesia Type: MAC ASA Status: 2 [...] of care. Anesthesia Observations No Documentation SIGNATURE: Joel Pryor APRN.CRNA PATIENT NAME: Orion Harper DATE: February 25, 2025 TIME: 1:52 PM CSN: [id number] PRE[facility] 01-70-2909ENIO PRE-OPHNO ID: [id number] Author: JOEL PRYOR APRN.CRNA Service: Anesthesiology Author Type: Nurse Acupuncture Physician Type: Anesthesia Preprocedure Evaluation Filed: 02/25/2025 13:25 Note Text: ANESTHESIOLOGY DAY OF SURGERY NOTE : 1990 Procedure Information Date/Time: 02/25/25 1300 Scheduled providers: Carol Winn MD; Lindsey Buckley RN; Joel Pryor APRN.CHIEF PRIVACY OFFICER Procedure: EGD - THERAPEUTIC, EUS, OR TUBE INTERVENTIONS Location: Ambulatory Surgery Estimated body mass index is 37.49 kg/m? as calculated from the following: Height [...] on Metoprolol. Exertional so pt manages. On Farxiga I - PHYSICAL EVALUATION AIRWAY Patient intubated: [...] and consent discussed: yes. Patient / Responsible Republican agrees to proceed: yes Patient / Surrogate [...] obtained within 48 hours of Surgery/Procedure. SIGNATURE: Joel Pryor APRN.CRNA PATIENT NAME: Orion Harper DATE: February 25, 2025 TIME: 1:24 PM CSN: [id number] [facility] PHYSICALon 00-53-5543YIHFQQY PHYSICALHNO ID: [id number] Author: CAROL WINN MD Service: Gastroenterology Author Type: Physician Type: H&P Filed: 02/25/2025 13:26 Note Text: SEDATION HISTORY AND PHYSICAL EXAM [...] Class: Patient with severe systemic disease Assessment AND Plan Choking, initial encounter Gastroesophageal reflux disease, unspecified whether esophagitis present Helicobacter pylori gastritis Gastroparesis Provisional Diagnosis/Treatment Plan: upper endoscopy with possible dilation Procedure was discussed with the patient including risks of oversedation, bleeding, and perforation. Patient agreed to proceed. Sedation Goal: Anesthesia SIGNATURE: Carol Winn MD PATIENT NAME: Orion Harper DATE: February 25, 2025 TIME: 1:[facility] PMNKettering Health Daytonjonelle 27-57-5425GZVPNQV PROGHNO ID: [id number] Author: BENITO RIBERA RN Service: Nursing Author Type: Registered Nurse Type: Nursing Progress Note Filed: 02/25/2025 13:49 Note Text: POST OP LEARNING RESPONSE INSTRUCTION PROVIDED TO: Patient METHOD OF INSTRUCTION: Individual instruction Written instruction/Handouts PATIENT / FAMILY RESPONSE: Information received as demonstrated by interest and questions FOLLOW-UP PLAN: Patient instructed to call with any further issues SUPPLEMENTAL MATERIAL: None REFERRAL (RECOMMENDATION): None Electronically Signed By: Benito Ribera RN In Department: AMBULATORY SURGERY [facility] [place] ID: [id number] Author: ELISSA NAPOLES RN Service: Nursing Author Type: Registered Nurse Type: Nursing Progress Note Filed: 02/25/2025 12:49 Note Text: PRE OP LEARNING ASSESSMENT PROCEDURE/SURGERY: GI PROCEDURES: EGD READINESS TO LEARN COGNITIVE ABILITY: Alert and oriented MOTIVATION TO LEARN: Interested FAMILY SUPPORT: High - Very involved in pt care PATIENT LEARNS BEST BY: Individual Instruction Written Instruction - Hand-outs Verbal Instruction FACTORS AFFECTING LEARNING: None PHYSICAL LIMITATIONS AFFECTING LEARNING: None Electronically Signed By: Elissa Napoles RN In Department: AMBULATORY SURGERY [facility] GI endoscopyon [id number] [facility]oscopyFair[facility] Gastro[facility] Gastrointestinal Endoscopy Patient Name: Orion Harper Procedure Date: 02/25/2025 1:26 PM Date of : 1990 Admit Type: Outpatient Age: 34 Room: [place] [address] Gender: Female Note Status: Finalized Attending MD: Carol Winn MD, [id number] Procedure: Upper GI endoscopy Indications: Dysphagia, choking Providers: Carol Winn MD Patient Profile: This is a 34 year old female. Refer to note in patient chart for documentation of history and physical. Referring Physician: Carol Winn MD (Referring MD) Medicines: Monitored Anesthesia Care [...] verified by the physician, the nurse, the energy project engineer and the electronics maintenance technician in the procedure room. Mental Status Examination: alert and oriented. Airway Examination: normal oropharyngeal airway and neck mobility. Respiratory Examination: clear to auscultation. CV Examination: normal. Prophylactic Antibiotics: The patient does not require prophylactic antibiotics. Prior Anticoagulants: The patient has taken no anticoagulant or antiplatelet agents. ASA Grade Assessment: III - A patient with severe systemic disease. After reviewing the risks and [...] anesthesia team. Findings: The hypopharynx was normal. LA Grade C (one or more mucosal breaks continuous between tops of 2 or more mucosal folds, less than 75% circumference) esophagitis with no bleeding was found 30 to 35 cm from the incisors. Brushings for cytology were obtained in the lower third of the esophagus. Suspect gastroparesis due to retained gastric contents. A large amount of food (residue) was found in the entire examined stomach. The examined duodenum was normal. Impression: - Normal hypopharynx. - LA Grade C reflux esophagitis with no bleeding. Brushings performed. - Gastroparesis. - A large amount of food (residue) in the stomach. - Normal examined duodenum. - Limited exam Recommendation: - Await pathology results. - Gastroparesis diet. - Use Protonix (pantoprazole) 40 mg PO BID for 2 months. - Repeat upper endoscopy in 2 months to check healing. Needs to be on clear liquid diet the day prior to the scope - Discharge patient to home (ambulatory). Procedure Code(s): --- Professional --- 53704, Esophagogastroduodenoscopy, flexible, transoral; diagnostic, including collection of specimen(s) by brushing or washing, when performed (separate procedure) Diagnosis Code(s): --- Professional --- K21.00, Gastro-esophageal reflux disease with esophagitis, without bleeding K31.84, Gastroparesis R13.10, Dysphagia, unspecified CPT copyright 2020 [employer]. All rights reserved. The codes documented in this report are preliminary and upon adjunct instructor in economics review may be revised to meet current compliance requirements. Scope In: 1:29:08 PM Scope Out: 1:31:54 PM Carol Winn MD 02/25/2025 1:41:26 PM This report has been signed electronically by Carol Winn MD Number of Addenda: 0 Note Initiated On: 02/25/2025 1:26 PM Estimated Blood Loss: Estimated blood loss: none.NormalGlenbeigh HospitalNURSEon 02-18-2025 CNNURSENurse Visit (GASTNO) ORION HARPER ([id number]) 1990 F Date Time Provider Department 02/18/25 3:[address] [facility] During your visit today, we recorded the following information about you: Referring Provider: CAROL WINN [[id number]] Allergies As of Date: 02/18/2025 Noted Allergy Reaction IODINATED CONTRAST MEDIA 04/12/2019 [...] NUTS 07/10/2024 10 - Anaphylaxis Date Reviewed: 02/17/2025 Reviewed by: Carol Winn MD - Fully Assessed Reason for Visit: H. Pylori Breath Test [477] Visit Diagnosis:Helicobacter pylori gastritis [K29.70, B96.81] Order(s):BREATH TEST FOR HELICOBACTER PYLORI [SQHPYLBR] Order #: [id number] Prescriptions as of 02/20/2025 - clonazePAM (KLONOPIN) 0.5 mg tablet Take [...] mg by mouth daily at bedtime. - fluticasone/umeclidin/vilanter (TRELEGY ELLIPTA INHALATION) Inhale as instructed. - escitalopram oxalate (LEXAPRO) 20 mg tablet Take 20 mg by mouth every morning. - amphetamine-dextroamphetamine XR (ADDERALL XR) 30 mg capsule Take 30 mg by mouth once daily. - ALPRAZolam (XANAX) 0.5 mg tablet Take 0.25 mg by mouth two times a day. - cariprazine (VRAYLAR) 4.5 mg capsule Take 4.5 mg by mouth once daily. Problem List As Of Date 02/18/2025 Noted Resolved Gastroparesis [K31.84] 11/02/2022 Pelvic floor dysfunction [M62.89] 10/11/2024 Chronic constipation [K59.09] 10/11/2024 Muscle spasm [M62.838] 10/11/2024 Encounter Status:Closed by СВЕТЛАНА AGOSTO on 02/20/25[facility] [id number] Visit (TANI) MEREDITHORION Eleuterio ([id number]) 1990 F Date Time Provider Department 02/17/25 9:00 AM CAROL WINN During your visit today, we recorded the following information about you: Pulse Blood pressure Weight 101/minute 133/89 96 kg Carol Winn MD 02/17/2025 9:26 AM Signed HPI: Orion Harper, 34 year old female, presents in the [...] due to worsening heartburn, but has since experienced weight gain. She also recently quit smoking and [...] biopsies. Gastric biopsies revealed H. pylori-associated chronic active gastritis, initially treated with Pylera and PPI without eradication. She subsequently received rifabutin 300 mg daily, amoxicillin 750 mg TID, and 2 weeks of PPI. No follow-up breath test has been performed. Small bowel biopsies showed normal villi with a slightly patchy increase in intraepithelial lymphocytes. A gastric emptying scan confirmed gastroparesis, which she describes as ?pretty bad.? She was evaluated by Dr. Corey, who recommended dietary changes and considered autoimmune gastrointestinal dysmotility, but antibody workup was normal. She was referred to a female shake out worker and was recommended IBSRELA, which she did not start due to insurance issues. Capsule endoscopy was also recommended but not completed due to cost. Laparoscopy by her clarifier operator ruled out endometriosis. 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 FibroScan in April showed minimal scarring and S2 steatotic changes. She reports social alcohol use on weekends or every other weekend. She has been biking 16 miles a day, but continues to gain weight. She is enrolled in the slinkset program through her employer, which provides a meal plan and daily monitoring of glucose, weight, and blood pressure. Past Clinical Workup: Last OV - Iliana Mercado PA-C Gastroenterology Assessment IMPRESSION Ms. 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 Plan for colonoscopy to evaluate further for BRBPR. She will also have chronic liver disease work up completed and repeat fibroscan ordered. PLAN -Chronic liver disease work up -Colonoscopy -Fibroscan Iliana Mercado PA-C Recent Procedures: Colon - The examined [...] located within the ascending RIGHT colon, splenic flexu (more content not included)...Normal [facility] County HospitalHepatic function 1999 panelon [id number] [Mass/Vol]4.4 g/dLNormal3.9-4.9Avon HospitalComment on above:Order Comment: Specimen Type: BLOOD SPECIMEN Ordering Facility: [facility] Address: [address] [place], [place] [address]Performed By: #### 94626-2 #### [facility] CLIA [id number] [place] [address] [place] AMERICAALP [Catalytic activity/Vol]130 U/LHigh 34-123Avon HospitalComment on above:Order Comment: Specimen Type: BLOOD SPECIMEN Ordering Facility: [facility] Address: [address] [place], [place] [address]Performed By: #### 66885-0 #### [facility] CLIA [id number] [place] [address] [place] AMERICAALT [Catalytic activity/Vol]57 U/LHigh 7-38Avon HospitalComment on above:Order Comment: Specimen Type: BLOOD SPECIMEN Ordering Facility: [facility] Address: [address] [place], [place] [address]Performed By: #### 59802-1 #### [facility] CLIA [id number] [place] [address] [place] AMERICAAST [Catalytic activity/Vol]35 U/LNormal 13-35Av HospitalComment on above:Order Comment: Specimen Type: BLOOD SPECIMEN Ordering Facility: [facility] Address: [address] [place], [place] [id number] By: #### 57912-2 #### [facility] [place] [id number] [address] [place] [address] [place] AMERICABilirubin [Mass/Vol]0.2 mg/dLNormal 0.2-1.3Avon HospitalComment on above:Order Comment: Specimen Type: BLOOD SPECIMEN Ordering Facility: [facility] Address: [address] [place], [place] [address]Performed By: #### 11439-4 #### [facility] IA [id number] [address] [place] [address] [place] AMERICABilirubin.conjugated [Mass/Vol]0.1 mg/dL Normal<0.3Avon HospitalComment on above:Order Comment: Specimen Type: BLOOD SPECIMEN Ordering Facility: [facility] Address: [address] [place], [place] [address]Performed By: #### 64867-0 #### [facility] [place] [id number] [address] [place] [address] [place] AMERICAProtein [Mass/Vol]7.3 g/dLNormal6.3-8.0 [facility] City HospitalComment on above:Order Comment: Specimen Type: BLOOD SPECIMEN Ordering Facility: [facility] Address: [address] [place], [place] [address]Performed By: #### 44222-4 #### [facility] IA [id number] [address] [place] [address] [place] AMERICAALL LIPID PROFILE (FASTING)on 02-06-2025 CHOL HDL RATIO2.8NOMS HealthcareComment on above:3.3 - 4.4 LOW RISK 4.4 - 7.1 AVERAGE RISK 7.1 - 11.0 MODERATE RISK >11.0 HIGH RISK Cholesterol [Mass/Vol]207 mg/dLHighNINF - 200 mg/dLNOMS HealthcareCholesterol in HDL [Mass/Vol]73 mg/pDNwoh22 - 60 mg/dLNOSC HealthcareComment on above:> or =60 mg/dl - LOW CARDIOVASCULAR RISK <40 mg/dl - HIGH CARDIOVASCULAR RISK Magnesium [Mass/Vol]108.0 mg/dLNOSC HealthcareComment on above:<100 mg/dl OPTIMAL 100-129 mg/dl NEAR OR ABOVE OPTIMAL 130-159 mg/dl BORDERLINE HIGH 160-189 mg/dl HIGH >190 mg/dl VERY HIGH Magnesium [Mass/Vol]26.6 mg/dLNOMS HealthcareTriglyceride [Mass/Vol]133 mg/dL NINF - 150 mg/dLNOSC HealthcareCCF CMP (CMP) (FOR REMOTE [facility] USE)on 02-06-2025 Albumin [Mass/Vol]3.7 g/dL3.4 - 5.0 g/dLNOSC HealthcareALBUMIN GLOBULIN RATIO1.0 NOMS HealthcareALP [Catalytic activity/Vol]107 U/L46 - 116 U/LNOMS HealthcareALT [Catalytic activity/Vol]65 U/LHigh14 - 59 U/LNOMS HealthcareAnion gap [Moles/Vol]13.5 mmol/LNOMS HealthcareAST [Catalytic activity/Vol]23 U/L15 - 37 U/LNOMS HealthcareBilirubin [Mass/Vol]0.3 mg/dL0.2 - 1.0 mg/dLNOSC Healthcare Calcium [Mass/Vol]9.2 mg/dL8.5 - 10.1 mg/dLNOMS HealthcareChloride [Moles/Vol] 105 mmol/L98 - 107 mmol/LNOMS HealthcareCO2 [Moles/Vol]27.9 mmol/L21.0 - 32.0 mmol/LNOMS HealthcareCreatinine [Mass/Vol]0.89 mg/dL0.55 - 1.02 mg/dLNOSC HealthcareGFR/1.73 sq M.predicted CKD-EPI (S/P/Bld) [Vol rate/Area]>60>=60 mL/min/1.73m 2NOMS HealthcareGlobulin (S) [Mass/Vol]3.7 g/dLNOMS Healthcare Glucose [Mass/Vol]111 mg/oRXjuv77 - 106 mg/dLNOMS HealthcarePotassium [Moles/Vol]4.4 mmol/L3.5 - 5.1 mmol/LNOMS HealthcareProtein [Mass/Vol]7.4 g/dL 6.4 - 8.2 g/dLNOMS HealthcareSodium [Moles/Vol]142 mmol/L136 - 145 mmol/LNOMS HealthcareTBH EGFR-NON AF NIGERIEN>60>=60 mL/min/1.73m 2NOMS HealthcareUrea nitrogen [Mass/Vol]16.0 mg/dL7.0 - 18.0 mg/dLNOMS HealthcareUrea nitrogen/Creatinine [Mass ratio]18.0 mg/mgNOSC HealthcareNo Panel Informationon [id number] and review of laboratory resultsAbnormalNOThe [facility] CLINISYNCNOMS HealthcareMR LUMBAR SPINE WO CONTRASTon [id number] LUMBAR SPINE WO CONTRASTEXAM: MR LUMBAR SPINE WO CONTRAST History: Low [...] canal stenosis. ELECTRONICALLY SIGNED BY: Fuad Stern, DONormalNot AvailableALL CBC WITH AUTO DIFFon [id number] ABSOLUTE AUTO0.1NOMS HealthcareBasophils/100 WBC (Bld)0.5 %0.2 - 2.0 %NOMS HealthcareEosinophils/100 WBC (Bld)3 %0.9 - 7.0 %NOMS HealthcareErythrocyte distribution width (RBC) [Ratio]12.7 %11.0 - 15.0 %NOMS HealthcareHematocrit (Bld) [Volume fraction]39.2 %36.0 - 48.0 %[facility] Hemoglobin (Bld) [Mass/Vol]13.3 g/dL12.0 - 16.0 g/dLNOThe Rehabilitation Institute of St. LouisIMMATURE GRANULOCYTES ABS AUTO0.27HighNOThe Rehabilitation Institute of St. LouisImmature granulocytes/100 WBC (Bld) 2.6 %High0.0 - 0.5 %[facility] Health CareInterpretation and review of laboratory resultsAbnormalUniversity of Missouri Health CareLYMPHOCYTES ABSOLUTE AUTO2.5NOThe [facility] Lymphocytes/100 WBC (Bld)24.6 %20.5 - 60.0 %[facility] ServicesH (RBC) [Entitic mass]32.4 pg26.7 - 34.0 pgHeartland Behavioral Health ServicesHC (RBC) [Mass/Vol]33.9 g/dL29.9 - 35.2 g/dLHeartland Behavioral Health ServicesV (RBC) [Entitic vol]95.4 fL81.0 - 99.0 fLUniversity of Missouri Health CareMONOCYTES ABSOLUTE AUTO0.5[facility] CareMonocytes/100 WBC (Bld)5.2 % 1.7 - 12.0 %[facility] CareNEUTROPHILS ABSOLUTE AUTO6.6HighUniversity of Missouri Health Care Neutrophils/100 WBC (Bld)64.1 %43.0 - 75.0 %[facility] Health CarePlatelet mean volume (Bld) [Entitic vol]9.9 fL9.5 - 13.5 fLUniversity of Missouri Health CareTB EO #0.3NOThe [facility] TBH [id number]'s Mercy Hospital RBC4.11LowBarnes-Jewish Saint [facility] Hospital WBC10.3NOThe [facility] CLINISYNCUniversity of Missouri Health CareEXERCISE STRESS ECG (WITHOUT IMAGING)on 01-08-2025 EXERCISE STRESS ECG (WITHOUT IMAGING)Stress ECG Report: Exercise Stress ECG (without Imaging) [place] [address] Date of service: 01/08/2025 10:15:05 AM MAN Ordering physician: SOLO CARTY teacher selection specialist: Elvia Caicedo Tack Maker: Acacia Simeon Interpreting physician: Gracie Villanueva MD [...] mmHg. The patient exercised according to the Demotte 10% protocol. The estimated end- exercise MET level achieved using the FRIEND equation [...] 154/92 mmHg. The double product achieved was 11852. Medications: Last Used INDERAL 2 Days METOPROLOL METOPROLOL METOPROLOL Resting ECG: Sinus Tachycardia Exercise Protocol: Demotte 10% Stress Exercise Table: +-----+ +--------+ +---+---+---+----+---+----+ Stage Speed (MPH) Grade(%) Time (min) HR SYS KATHERINE RPE SOB METS +-----+ +--------+ +---+---+---+----+---+----+ 1 1.7 10.0 2.0 130 122 90 10.0 2.0 4.2 +-----+ +--------+ +---+---+---+----+---+----+ 2 2.1 11.0 4.0 141 146 86 12.0 3.0 5.1 +-----+ +--------+ +---+---+---+----+---+----+ 3 2.5 12.0 6.0 153 154 92 14.0 3.0 6.1 +-----+ +--------+ +---+---+---+----+---+----+ +-----+ +---------+ +---+---+---+----+---+----+ Speed (MPH) Grade (%) Time (min) HR SYS KATHERINE RPE SOB METS +-----+ +---------+ +---+---+---+----+---+----+ Final 3.0 13.0 6.60 173 154 92 18.0 6.0 6.5 +-----+ +---------+ +---+---+---+----+---+----+ +-----+ + Symptoms +-----+ + Final Dizziness. +-----+ + Recovery Table: +------+ +--------+ +---+---+---+----+ Stage Speed (MPH) Grade(%) Time (min) HR SYS KATHERINE METS +------+ +--------+ +---+---+---+----+ 1 1.5 2.5 1.0 151 170 74 2.7 +------+ +--------+ +---+---+---+----+ 2 1.5 2.5 2.0 136 2.7 +------+ +--------+ +---+---+---+----+ 3 3.0 126 178 90 +------+ +--------+ +---+---+---+----+ 4 5.0 114 144 80 +------+ +--------+ +---+---+---+----+ 5 7.0 115 +------+ +--------+ +---+---+---+----+ 6 9.0 112 112 74 +------+ +--------+ +---+---+---+----+ +-----+ + + Stage Arrhythmias Symptoms +-----+ + + 1 Dizziness resolving +-----+ + + 2 Dizziness resolving +-----+ + + 3 Dizziness resolving +-----+ + + 4 Rare PAC (<3/min) Dizziness resolving +-----+ + + 6 Dizziness resolved +-----+ + + Stress Observations: Resting HR: 100 bpm Peak HR: 173 bpm (94% MPHR) Resting BP: 126 / 94 mmHg Peak BP: 154 / 92 mmHg Total exercise time: 6 minutes 36 seconds METS achieved: 6.5 Chronotropic response index (CRI): 0.87 Heart rate recovery (HRR): 22 bpm Rate Pressure Product (RPP): 19265 Stress Exercise Observations: Reason for test termination: general fatigue Symptoms during test: Other symptoms during the test included dizziness Heart rate response: Adequate heart rate response, Normal CRI (>0.8 Not on B Taylor) and NormalHRR (>12 or >[address]/EC) Blood pressure response: Normal BP response ST segment and T wave changes: No ST changes Goss Treadmill Score: Normal Goss Treadmill Score (>=5) Arrhythmias: PACs Metabolic Exercise Data Variable: Observed value [Expected Range] HGI: 1.1 [>1.06 bpm/mmHg] IMPORTANT NOTE REGARDING ESTIMATED MET VALUES: Effective 02/09/2020, the reference equation for determining estimated MET values for [facility] stress tests changed. Comparison of test results before and after that date may show a change in estimated M (more content not included)...NormalWood County HospitalUrology Office/Clinic Noteon [id number] Office/Clinic NoteUrology Office/Clinic Note Chief Complaint pt here for [...] Urnls Dip Stick Auto w/o Microscopy POC 91833 2. Kidney stones (N20.0: Calculus of kidney) S/p R ESWL KUB 06/29/22 at [facility] - negative Metabolic workup 07/08/22 - slightly elevated Na (149), low output volume (1000 mL) KUB 11/16/23 - negative KUB 10/23/24 - negative for stones Reviewed KUB w/ patient. She denies recent flank pain, gross hematuria or stone passage. She would like to continue to monitor for new stones. -Cont stone prevention diet -F/U in 1 year w/ MAYA and KUB ([facility]) prior, or sooner if needed Ordered: Urnls Dip Stick Auto w/o Microscopy POC 29431 3. Stress incontinence (N39.3: Stress incontinence (female) (male)) Shares she is seeing specialist at [facility] (Emma Romero NP) for SAM, chronic pelvic pain. Shares she is currently waiting to start formal PFPT. Management per [facility] provider. Also recommend she proceed w/PFPT given her symptoms. Follow-up With When Contact [...] reference range Localized edema Lumbar radiculopathy Metabolic dysfunction-associated steatohepatitis Migraine Mild intermittent asthma Moderate recurrent [...] Allergies iodine (unknow) So (more content not included)...[facility] HospitalComment on above:Result Comment: Electronically Signed By: Iliana Cramer PA-C\.br\Date and Time Signed: 01/01/25 12:08 EDTAmbulatory Visit Summaryon [id number] Visit SummaryAmbulatory Visit Summary MEREDITHLILITUYET Mcclellan :1990 Visit Date:12/31/2024 Ambulatory Visit Instructions Your Diagnosis Recurrent UTI Kidney stones Your Care Team Attending Physician - Iliana Cramer PA-C Primary Care Physician - GIOVANI HAGEN MD This Is Your Medications List [facility] (BUPROPION HYDROCHLORIDE ER (XL) [...] Iliana Cramer PA-C Where: [facility] [address] [address]- Medications What How Much When Why Instructions [...] reference range Localized edema Lumbar radiculopathy Metabolic dysfunction-associated steatohepatitis Migraine Mild intermittent asthma Moderate recurrent [...] signed up for this yet, please contact [employer] at [phone] to get signed up today. Language Information Language assistance services are available as needed. Shelby Memorial HospitalCNOVon [id number] Visit (WHGR[facility]P) ORION HARPER ([id number]) 1990 F Date Time Provider Department 12/30/24 9:[address] [facility] During your visit today, we recorded the following information about you: Blood pressure Weight 132/94 92.9 kg Emma Romero APRN.OXIDATION ENGINEER 12/30/2024 10:35 AM Signed [facility] [place] SECTION FOR CHRONIC PELVIC PAIN OUTPATIENT VISIT DATE 12/30/2024 OUTPATIENT VISIT TYPE CONSULT REFERRING PROVIDER: Javy Boudreaux MD PRIMARY CARE PROVIDER: Giovani Hagen MD, MD PRIMARY TRAIN BRAKER: Consultation requested by referring provider above for an opinion regarding Orion Harper, and my final recommendations will be communicated back to the requesting physician by way of shared medical record or letter via US mail. Recording using BareedEE software for draft documentation of the visit was discussed with the patient/authorized it sales representative; all questions welcomed and answered. Patient/authorized it sales representative agreed to proceed CHIEF COMPLAINT/REASON [...] is not in contact with those individuals. Contract Lead Hx: (page 3) Menarche: 9 Currently experiences: Not menstruating Duration of dysmenorrhea symptoms: n/a Currently missing school/work: N/A Prior dysmenorrhea treatment: Other, Hysterectomy Current control: Nothing History of STD: Negative history MA intake LMP: Patient's last menstrual period was 05/25/2015. Cycles: Hysterectomy, Flow: n/a Intermenstrual spotting between periods: N/A Last pap: Pap Results: WNL 03/20/2024, HPV: History of abnormal pap: Yes [place]: (MA intake) Dyspareunia: both insertional and deep [...] Pain characteristics: (page 5) Pain started (month/year): 9126-1822 Inciting event: No obvious cause/do not know Onset: Gradual Duration of pain: 2-5 years Character of pain: Sharp, stabbing Wakes from sleep: No Radiation of pain: No Aggravating factors: [place]/Sexual contact Alleviating factors: Nothing makes it better Bowel habits: (page 12-13) Nause (more content not included)...NormalNewark Hospital Foot - right 3 Viewson [id number] Result: Radiographs: Three views were taken today AP/MORT/LAT Ankle: No fractures or dislocations seen mild swelling circumferentially around the ankle. Small leanne fracture noted of the medial aspect of the medial malleolus.[facility] MedCenter High PointXR Foot - right 3 Viewson [id number] Study observation (narrative)[facility] Health CareMLR HEMOGLOBIN A1Con [id number] [Mass/Vol]114 mg/dLUniversity of Missouri Health CareHbA1c (Bld) [Mass fraction]5.6 %4.5 - 6.2 % [facility] CareComment on above:ADA RECOMMENDED LIMIT 4.0 - 6.0 ADA THERAPEUTIC TARGET < 7.0 ACTION SUGGESTED > 7.0 CLINISYNCUniversity of Missouri Health CareNo Panel InformationOrdered By: Radiologist Radiology on [id number] of Missouri Health Care Work Phone: No Panel Informationon [id number] Study observation (narrative)[facility] CareXR ABDOMEN 1V SUPINEon 10-23-2024* * *Final Report* * * DATE OF [...] No radiopaque markers are noted in the oondn-lh-vfcu. IMPRESSION: 0 Sitzmarks markers. The previously noted [...] any questions regarding this interpretation, please call [phone]. If you are unable to reach us at the number above, please feel free to contact [facility] at [phone]. [id number]^AGFA_IDC^SI^ACNCCFRadiology, Radiologist, - 10/23/2024 * * *Final Report* [...] No radiopaque markers are noted in the tjoso-qo-opci. IMPRESSION: 0 Sitzmarks markers. The previously noted [...] any questions regarding this interpretation, please call [phone]. If you are unable to reach us at the number above, please feel free to contact [facility] eRadiology at [phone]. [id number]^AGFA_IDC^SI^ACN NOMS HealthcareXR ABDOMEN 1V SUPINE* * *Final Report* * * DATE OF [...] No radiopaque markers are noted in the gjcgg-ev-suxr. IMPRESSION: 0 Sitzmarks markers. The previously noted [...] any questions regarding this interpretation, please call [phone]. If you are unable to reach us at the number above, please feel free to contact [facility] eRadiology at [phone]. [id number]_IDCSIACNNormalNewark Hospital Abdomen Supine and [place] [id number]: 0 Sitzmarks markers. The previously noted Sitzmarks [...] any questions regarding this interpretation, please call [phone]. If you are unable to reach us at the number above, please feel free to contact [facility] eRadiology at [phone].DIVISION OF RADIOLOGY* * *Final Report* * * DATE OF [...] No radiopaque markers are noted in the mnyon-rk-zmmk. DIVISION OF RADIOLOGYProvider, [facility] [place] - 10/23/2024 * * *Final Report* * [...] No radiopaque markers are noted in the fpqvl-bf-xztm. IMPRESSION IMPRESSION: 0 Sitzmarks markers. The previously [...] any questions regarding this interpretation, please call [phone]. If you are unable to reach us at the number above, please feel free to contact [facility] eRadiology at [phone]. [facility] HEAD/BRAIN WO/W CONTRon [id number] [address] Magnetic Resonance Report Signed Patient: ORION HARPER MR#: [id number] : 1990 Acct:[id number] Age/Sex: 34 / F ADM Date: 10/21/24 Loc: MRI Attending Dr: SHANNON OCHOA Ordering Physician: SHANNON OCHOA Date of Service: 10/21/24 Procedure(s): MR head/brain wo/w con Accession Number(s): [id number] cc: GIOVANI HAGEN ; SHANNON OCHOA [address] [address] Patient Name: ORION HARPER MRN: [id number] date: 1990 Sex: F Assigned Patient Location: MRI Current Patient Location: MRI Accession/Order Number: [id number] Exam Date: 10/21/2024 11:17 Report Date: 10/21/2024 11:39 At the request of: SHANNON OCHOA Procedure: MR head/brain wo/w con MRI BRAIN [...] Knight M.D. 10/21/2024 11:39 AM Dictation Location: [place] [address] Electronically authenticated by: [id number] Y Date: 10/21/2024 11:39 Dictated By: Sandy Knight M.D. Signed By: 10/21/24 1142 DD/ 1139 TD/TT: Chief Clinical Officer:TBHRadiology, Radiologist, MD - 10/21/2024 [place] [address] Magnetic Resonance Report Signed Patient: ORION HARPER MR#: [id number] : 1990 Acct:[id number] Age/Sex: 34 / F ADM Date: 10/21/24 Loc: MRI Attending Dr: SHANNON OCHOA Ordering Physician: SHANNON OCHOA Date of Service: 10/21/24 Procedure(s): MR head/brain wo/w con Accession Number(s): [id number] cc: GIOVANI HAGEN ; SHANNON OCHOA [place] [id number] Patient Name: ORION HARPER MRN: [id number] date: 1990 Sex: F Assigned Patient Location: MRI Current Patient Location: MRI Accession/Order Number: [id number] Exam Date: 10/21/2024 11:17 Report Date: 10/21/2024 11:39 At the request of: SHANNON OCHOA Procedure: MR head/brain wo/w con MRI BRAIN [...] Knight M.D. 10/21/2024 11:39 AM Dictation Location: [place] [address] Electronically authenticated by: [id number] Y Date: 10/21/2024 11:39 Dictated By: Sandy Knight M.D. Signed By: 10/21/24 1142 DD/ 1139 TD/TT: Chief Clinical Officer: [facility] CENTERRodney HealthcareRadiology Study observation (narrative)[facility] HealthcareI HEAD/BRAIN WO/W CONTROrdered By: Radiologist Radiology on 18-62-9784[employer] Work Phone: xr ABDOMEN 1V SUPINEon [phone] ABDOMEN 1V SUPINE* * *Final Report* * * DATE OF [...] Sitzmarks markers. IMPRESSION: Sitzmarks markers as described. Chief Clinical Officer: PSCB Transcribe Date/Time: Oct 28 2024 9:07A Dictated by : ANNITA STILL MD This examination was interpreted and the report reviewed and electronically signed by: ANNITA STILL MD on Oct 28 2024 9:08AM EST [id number] Health Butterworth [id number] [id number] ID: [id number] Author: LYDIA ROCK PT, DPT Service: ? Author Type: Physical Therapist Type: [id number] Filed: 10/11/2024 15:55 Note Text: [facility] Rehabilitation and Sports Therapy Physical Therapy Plan of Care Certification Patient Name: Orion Harper : 1990 [facility] #: [id number] Date: 10/11/2024 To: Mario Harper APRN* From Therapist: Lydia Rock PT DPMary Ellen RE: Patient Certification/ Recertification Your review, approval [...] Planned: 4 Planned Treatment Interventions: Therapeutic exercise (55691), Neuromuscular re-education (84771), Manual therapy (64216), Therapeutic activities (31659), Self-[place] management (32060), Patient/Family/Caregiver Education, Body Mechanics Training PLAN FOR [...] have reviewed the treatment plan for Orion Harper [facility]# [id number] for the period of 10/11/24 -- 01/09/25, established on 10/11/2024. Signature certifies the need for therapy services.NormalWood County HospitalCNTHERAPYon 89-82-7706ITIZVQUUTGV/PT/Speech Visit (PTCORD) MEREDITHORION Mcclellan ([id number]) 1990 F Date Time Provider Department 10/11/24 2:45 PM LYDIA ROCK Date Time Provider Department Center 10/11/2024 2:45 PM [id number] ROCK [facility] Reason for Visit: PT Eval [747] PT [...] Date Reviewed: 10/09/2024 Reviewed by: Mario Harper APRN.OXIDATION ENGINEER - Fully Assessed Prescriptions as of 01/14/2025 [...] mg by mouth daily at bedtime. - fluticasone/umeclidin/vilanter (TRELEGY ELLIPTA INHALATION) Inhale as instructed. - escitalopram oxalate (LEXAPRO) 20 mg tablet Take 20 mg by mouth every morning. - amphetamine-dextroamphetamine XR (ADDERALL XR) 30 mg capsule Take 30 mg by mouth once daily. - ALPRAZolam (XANAX) 0.5 mg tablet Take 0.25 mg by mouth two times a day. - cariprazine (VRAYLAR) 4.5 mg capsule Take 4.5 mg by mouth once daily.[facility] 06-74-2548GPXRFjiwms Visit ([facility]) ORION HARPER ([id number]) 1990 F Date Time Provider Department 10/09/24 1:00 PM MARIO HARPER [facility] During your visit today, we recorded the following information about you: Pulse Blood pressure Weight 106/minute 112/76 86.6 kg Mario Harper APRN.OXIDATION ENGINEER 10/09/2024 2:03 PM Signed COLORECTAL SURGERY October 09, 2024 Orion Eleuterio Harper 34 year old This consult was requested by Dr. Winn and my final recommendations will be communicated to the requesting health care provider by way of the shared medical record for internal providers or letter via the [employer] for external providers. Recording using [employer] software for draft documentation of the visit was discussed with the patient/authorized it sales representative; all questions welcomed and answered. Patient/authorized it sales representative agreed to proceed Chief Complaint: [...] face. Also, pt complaine (more content not included)...NormalWood County HospitalCNPNon 67-19-1224PHQWOxmugixus (GASTNO) ORION HARPER ([id number]) 1990 F Date Time Provider Department 10/01/24 TATUM CAROL NICHOLSONFRANCISCO During your visit today, we recorded the [...] keep appointment with me. Thank you, Benito Prince, JW Last read by Milly Harper at 11:26AM on 10/01/2024. Iliana Mercado PA-C to Benito Prince RN LY 07/18/24 3:32 PM If it is hemorrhoids or fissures we should refer to [facility] as they would take care of that. Any other GI issues can keep appointment with me. Thank you! Connie Lucas RN 10/01/2024 4:13 PM Signed Iliana Mercado PA-C You13 minutes ago (4:00 PM) LY Signed thank you Howard Acacia 10/02/2024 3:09 PM Signed Called pt and [...] Anaphylaxis Date Reviewed: 08/13/2024 Reviewed by: Kartik Espinosa RN - Fully Assessed Primary Visit Diagnosis:Rectal pain [K62.89] Other Visit Diagnosis:Hemorrhoids, unspecified hemorrhoid type [K64.9] Order(s):CONSULT TO COLO-RECTAL SURGERY [] Order #: [id number]: 1 FUTURE Prescriptions as of 10/02/2024 - metoprolol succinate ER (TOPROL XL) 25 mg 24 hr tablet Take 1 tablet by mouth once daily. - montelukast (SINGULAIR) 10 mg tablet Take 10 mg by mouth daily at bedtime. - fluticasone/umeclidin/vilanter (TRELEGY ELLIPTA INHALATION) Inhale as instructed. - escitalopram oxalate (LEXAPRO) 20 mg tablet Take 20 mg by mouth every morning. - amphetamine-dextroamphetamine XR (ADDERALL XR) 30 mg capsule Take 30 mg by mouth once daily. - ALPRAZolam (XANAX) 0.5 mg tablet Take 0.25 mg by mouth two times a day. - cariprazine (VRAYLAR) 4.5 mg capsule Take 4.5 mg by mouth once daily. Problem List As Of Date 10/01/2024 Noted Resolved Gastroparesis [K31.84] 11/02/2022 Encounter Status:Closed by ILIANA MERCADO on 10/01/24NormalCleveland Clinic ClevelandCholesterol [Mass/volume] in Serum or PlasmaOrdered By: Dank Green on 85-34-1247Npkjvmxewbd [Mass/Vol]Cholesterol [Mass/volume] in Serum or Eufcdz901-817UwjqcvjnjBlanchard Valley Health System Bluffton HospitalComment on above:Chol less than 200 mg/dl low riskChol 201-239 mg/dl borderline riskChol 240 mg/dl and greater high riskCholesterol in HDL [Mass/volume] in Serum or PlasmaOrdered By: Dank Green on 24-35-3229Yyyhdvlhagi in HDL [Mass/Vol]Serum or plasma high density lipoprotein (HDL) cholesterol jukadhhhpix45-10JrbgbxywpBlanchard Valley Health System Bluffton HospitalComment on above:HDL CHOL ATP-III CLASSIFICATION Cardiovascular RiskHDL > or equal to 60 mg/dL LOWHDL < 40 mg/dL HIGHCholesterol in LDL Calc [Mass/Vol]Ordered By: Dakn Green on 06-38-4344Mllvehfzsgj in LDL [Mass/Vol]Cholesterol in LDL [Mass/volume] in Serum or Plasma by calculationHigh 0-100Bl[facility] Bluffton HospitalComment on above:LDL ATP III CLASSIFICATIONLDL less than 100 mg/dL OptimalLDL 100-129 mg/dL Near or above cvcpeyhSKL010-737 mg/dL Borderline highLDL 160-189 mg/dL HighLDL greater than 189 mg/dL Very highCholesterol in VLDL Calc [Mass/Vol]Ordered By: Dank Green on 15-00-1949Rzcpmorghmh in VLDL [Mass/Vol]Cholesterol in VLDL [Mass/volume] in Serum or Plasma by calculationBlanchard Valley Health System Bluffton Hospital Lipid Panelon 77-50-3106Kphwiojlwpr [Mass/Vol]183 mg/iGQnldbt325-270Tct Firelands Physician GroupComment on above:Result Comment: Chol less than 200 mg/dl low risk Chol 201-239 mg/dl borderline risk Chol 240 mg/dl and greater high riskPerformed By: #### TSH3 wRFLX, LIPID, [id number] #### [place] [address] USACholesterol in HDL [Mass/Vol]59 mg/vQNkvyea54-33Hfo Firelands Physician GroupComment on above:Result Comment: HDL CHOL ATP-III CLASSIFICATION Cardiovascular Risk HDL > or equal to 60 mg/dL LOW HDL < 40 mg/dL HIGHPerformed By: #### TSH3 wRFLX, LIPID, [id number] #### [facility] [address] [place] [address] USACholesterol.total/Cholesterol in HDL [Mass ratio]3.1 {ratio}Normal<5.0The [facility] Physician GroupComment on above:Performed By: #### TSH3 wRFLX, LIPID, [id number] #### [facility] [address] [place] [address] USALDL Cholesterol,Jojygmlwds133 mg/dLHigh0-100The [facility] Physician GroupComment on above:Result Comment: LDL ATP III CLASSIFICATION LDL less than 100 mg/dL Optimal LDL 100-129 mg/dL Near or above optimal LDL 130-159 mg/dL Borderline high LDL 160-189 mg/dL High LDL greater than 189 mg/dL Very highPerformed By: #### TSH3 wRFLX, LIPID, [id number] #### [facility] [address] [place] [address] USATriglyceride w/Lxqkvm554 mg/dLNormal0-149The [facility] Physician GroupComment on above:Result Comment: TRIG ATP III CLASSIFICATION TRIG less than 150 mg/dL Normal TRIG 150-199 mg/dL Borderline high TRIG 200-500 mg/dL High TRIG greater than 500 mg/dL Very high Standard traceable to the Center for Disease Conrtrol and Prevention (CDC) test method.Performed By: #### TSH3 wRFLX, LIPID, [id number] #### [facility] [address] [place] [address] USAVLDL SZKGMDDXOIP73 mg/dLNormalThe [facility] Physician GroupComment on above:Performed By: #### TSH3 wRFLX, LIPID, [id number] #### [facility] [address] [place] [address] USASerum or plasma total cholesterol/high density lipoprotein (HDL) cholesterol mass ratOrdered By: Dank Green on 08-17-2024 Cholesterol.total/Cholesterol in HDL [Mass ratio]Serum or plasma total cholesterol/high density lipoprotein (HDL) cholesterol mass rat<5.0[facility] Bluffton HospitalThyroid Stim Hormone w/Rflxon 15-37-6668Tjetgar Stim Hormone w/Rflx3.84 u[iU]/mLNormal0.45-5.33The [facility] Physician GroupComment on above:Performed By: #### TSH3 wRFLX, LIPID, [id number] #### [facility] [address] [place] [address] USAThyrotropin [Units/volume] in Serum or PlasmaOrdered By: Dank Green on 29-34-5208CAV QnThyrotropin [Units/volume] in Serum or Plasma0.45-5.33[facility] Bluffton HospitalTriglyceride [Mass/volume] in Serum or PlasmaOrdered By: Dank Green on 95-97-8456Smnzhqqvjors [Mass/Vol]Triglyceride [Mass/volume] in Serum or Plasma0-149[facility] Bluffton HospitalComment on above:TRIG ATP III CLASSIFICATIONTRIG less than 150 mg/dL NormalTRIG 150-199 mg/dL Borderline highTRIG 200-500 mg/dL High TRIG greater than 500 mg/dL Very highStandard traceable to the Center for Disease Co nrtrol and Prevention (CDC) test method.Vitamin D 25 Hydroxy Totalon 08-17-2024 Vitamin D 25 Hydroxy Total13.6 ng/zDPog51-826Vzi [facility] Physician Group Comment on above:Result Comment: VITAMIN D STATUS 25(OH)VITAMIN D RANGE (ng/mL) Deficient <20 Insufficient 20 to <30 Sufficient 30 to 100 Reference: Umesh MF,Cheyanne NC, Elio MELVIN, et al. Evaluation,treatment, and prevention of vitamin D deficiency; an Endocrine Society clinical practice guideline. JCEM. 2010; 96(7):1911-30. PERFORMED BY: [facility] [address] [place] [address] PATHOLOGIST HOT TOP LINER PADILLA MOLINA M.D.Performed By: #### TSH3 wRFLX, LIPID, [id number] #### [facility] [address] [place] [address] USAVitamin D+Metabolites [Mass/volume] in Serum or Plasma Ordered By: Dank Green on 28-59-8638Hlmbdpg D+Metabolites [Mass/Vol] Vitamin D+Metabolites [Mass/volume] in Serum or BxzxoeKhs52-138AehuajvrlBlanchard Valley Health System Bluffton HospitalComment on above:VITAMIN D STATUS 25(OH)VITAMIN D RANGE (ng/mL) Deficient <20 Insufficient 20 to <99Dxilmjmwmv85 to 100Reference: Umesh MF,Cheyanne WOLF, Elio MELVIN, et al. Evaluation,treatment, and prevention of vitamin D deficiency; an Endocrine Society clinical practice guideline. JCEM. 2010; 96(7):1911-30.CNOVon 48-07-2297ETVDJshoup Visit (CARDMN) ORION HARPER ([id number]) 1990 F Date Time Provider Department 08/13/24 2:30 PM SOLO CARTY CARDLISETH During your visit today, we recorded the following information about you: Pulse Blood pressure Weight Height 92/minute 140/96 81.6 kg 1.6 m Solo Carty MD 08/26/2024 3:56 PM Signed [facility] Hooker Department of Cardiovascular Medicine SECTION OF CARDIAC PACING and ELECTROPHYSIOLOGY OUTPATIENT VISIT DATE August 13, 2024 OUTPATIENT VISIT TYPE ESTABLISHED PRIMARY CARE PHYSICIAN: Giovani Hagen MD [address] [place] [address] CHIEF COMPLAINT: Syncope HISTORY OF PRESENT ILLNESS:(NURSING INTAKE HISTORY) Ms. Harper is a 33 year old female who presents today for follow-up visit syncope. She was last seen in office by Dr. Carty on 12/19/2023. She has a PMH of [...] was negative for ischemia (more content not included)...NormalAdena [facility] System ECHO TREADMILLon 08-13-2024 STRESS ECHO TREADMILLStress Agricultural Lender Report: Stress Echo [facility] J1-5 Date of service: 08/13/2024 12:34:08 PM MAN Supervising physician: Geremias Higuera MD PATIENT: Name: ORION HARPER Age: 33 years Gender: F The supervising physician was in the department and immediately available. Final Echocardiography Report: Stress Echo [facility] J1-5 Date of service: 08/13/2024 12:34:08 PM MAN Ordering physician: SOLO CARTY Indication: Syncope Technologist: Dixie Melendrez Fellow: Kiley [...] the prior echocardiographic exam performed on 04/09/2024 ([place]). The major resting echocardiographic findings are comparable. Final Stress ECG Report: Stress Echo [facility] J1-5 Date of service: 08/13/2024 12:34:08 PM MAN Ordering physician: SOLO CARTY teacher selection specialist: Bunny Epperson Fellow: Kiley Gallagher MD [...] according to the Jerzy protocol. The estimated end- exercise MET level achieved using the FRIEND equation was 8.3, which is within the 25th to 50th percentile for age and sex. The estimated e (more content not included)...NormalGlenbeigh HospitalPNon 75-96-3738VYKV Telephone (TANI) ORION HARPER ([id number]) 1990 F Date Time Provider Department 07/26/24 CAROL WINN During your visit today, we recorded the following information about you: Acacia Gonzalez 07/26/2024 11:38 AM Signed Pt called in asking for lab test results. Please call pt back and advise pt. Benito Prince, JW 07/26/2024 11:45 AM Signed Latest Reference [...] Iliana, Looks like labs were completed at [facility]. Patient is asking about results. Thank you, [...] She is ok with [facility] message. Benito Prince RN Allergies As of Date: 07/26/2024 Noted [...] mg by mouth daily at bedtime. - fluticasone/umeclidin/vilanter (TRELEGY ELLIPTA INHALATION) Inhale as instructed. - escitalopram oxalate (LEXAPRO) 20 mg tablet Take 20 mg by mouth every morning. - amphetamine-dextroamphetamine XR (ADDERALL XR) 30 mg capsule Take 30 mg by mouth once daily. - ALPRAZolam (XANAX) 0.5 mg tablet Take 0.25 mg by mouth two times a day. - cariprazine (VRAYLAR) 4.5 mg capsule Take 4.5 mg by mouth once daily. Problem List As Of Date 07/26/2024 Noted Resolved Gastroparesis [K31.84] 11/02/2022 Encounter Status:Closed by ACACIA GONZALEZ on 08/15/24[facility] 11-65-8389WAAFMdfsih Visit (OBGYCC) ORION HARPER Eleuterio ([id number]) 1990 F Date Time Provider Department 07/10/24 [...] - painful intercourse Referred here by her [employer] INSTRU[employer] at [place]. Has been having pain with intercourse for [...] - PELVIC US WHI - CONSULT TO ADJUNCT INSTRUCTOR IN ECONOMICS PELVIC PAIN 2. Pelvic pain in female - ICD9: 625.9, ICD10: R10.2 - counseled. - PELVIC US WHI - CONSULT TO ADJUNCT INSTRUCTOR IN ECONOMICS PELVIC PAIN Javy Boudreaux MD Medical Decision Making: Problems: Moderate: New problem with uncertain prognosis Data: Unique test(s) ordered: 2 Risk: Low: Low risk from testing/treatment Medical Decision Making Level: 3 - Low Referring Provider: DARWIN STARR [[id number]] Allergies As of Date: 07/10/2024 Noted Allergy [...] Other Visit Diagnosis:Pelvic edward (more content not included)...NormalHolzer Hospitalprehensive metabolic 2000 panelon 84-99-0215Rjmfbou [Mass/Vol]4.5 g/dLNormal3.9-4.9COhioHealth Grove City Methodist Hospital on above:Order Comment: Specimen Type: BLOOD SPECIMENOrdering Facility: [facility] Address:[address] [place], [place] [address]Performed By: #### 92052- 8, 2275- ####[facility] LABCLIA [id number] [facility] MEDICAL CENTERLID AV [address]04WZ[place]UT[place], [place] [address] [place] AMERICAALP [Catalytic activity/Vol]130 U/TBpth65-277GugtjqmneProMedica Memorial Hospital on above:Order Comment: Specimen Type: BLOOD SPECIMENOrdering Facility: [facility] Address:[address] [place], [place] [address]Performed By: #### 29913- 8, 2275-07 ####[facility] LABCLIA [id number] [facility]ITALD AV [address]13QCPRHYJER, [place] [address] [place] AMERICAALT [Catalytic activity/Vol]141 U/LHigh7-38[facility] on above:Order Comment: Specimen Type: BLOOD SPECIMENOrdering Facility: [facility] Address:[address] [place], [place] [address]Performed By: #### 38639- 8, 2275-07 ####[facility] LABCLIA [id number] [facility] MEDICAL CENTERLID AV [address] D91EBETDAVJF, [place] [address] [place] AMERICAAnion gap [Moles/Vol]11 mmol/LNormal8-15[facility] on above:Order Comment: Specimen Type: BLOOD SPECIMENOrdering Facility: [facility] Address:[address] [place], [place] [address]Performed By: #### 61063-5, 2275- ####[facility] LABCLIA [id number] [place] [address] [place] AMERICAAST [Catalytic activity/Vol]90 U/QMxpk71-53JffgaymgvProMedica Memorial Hospital on above:Order Comment: Specimen Type: BLOOD SPECIMENOrdering Facility: [facility] Address:[address] [place], [place] [address]Performed By: #### 08080-8, 2275-4 ####[facility] LABIA [id number] [place] [address] [place] AMERICABilirubin [Mass/Vol]0.4 mg/dLNormal0.2-1.3 Wood County HospitalComment on above:Order Comment: Specimen Type: BLOOD SPECIMENOrdering Facility: [facility] Address:[address] [place], [place] [address]Performed By: #### 98798-6, 2275-4 ####[facility] LABIA [id number] [place] [address] [place] AMERICACalcium [Mass/Vol]9.4 mg/dLNormal8.5-10.2COhioHealth Grove City Methodist Hospital on above:Order Comment: Specimen Type: BLOOD SPECIMENOrdering Facility: [facility] Address:[address] [place], [place] [address]Performed By: #### 04905-6, 2275-07 ####[facility] LABIA [id number] [place] [address] [place] AMERICAChloride [Moles/Vol]102 mmol/GEjwvrg37-853XjkpywgjwWood County Hospital Comment on above:Order Comment: Specimen Type: BLOOD SPECIMENOrdering Facility: [facility] Address:[address] [place] [address] Performed By: #### 00659-6, 2275- ####[facility] LABCLIA [id number] [place] [address] [place] YASH CO2 [Moles/Vol]23 mmol/BIokyjx19-64BtcoetdxuProMedica Memorial Hospital on above: Order Comment: Specimen Type: BLOOD SPECIMENOrdering Facility: [facility] Address:[address]ITALGonz[address] [place]OWANANDRE[place] [id number] By: #### 45126- 8, 2275-07 ####[facility] LABCLIA [id number] [address] X89WFTQIJZHN, [place] [address] [place] OF AMERICACreatinine [Mass/Vol] 0.71 mg/dLNormal0.58-0.96Holzer Hospitalment on above:Order Comment: Specimen Type: BLOOD SPECIMENOrdering Facility: [facility] Address:[address] [place], [place] [address]Performed By: #### 16535- 8, 2275-07 ####[facility] LABCLIA [id number] [address] W85ZQLEMAUHL, [place] [address] [place] AMERICACreatinine and Glomerular filtration rate.predicted panel (S/P/Bld)114 mL/min/1.73m???Normal >=60[facility] on above:Order Comment: Specimen Type: BLOOD SPECIMENOrdering Facility: [facility] Address:[address] [place], [place] [address]Result Comment: Estimated Glomerular Filtration Rate (eGFR) is calculated using the 2020 CKD-EPI creatinine equation. This equation utilizes serum creatinine, sex, and age as parameters. The creatinine assay has traceable calibration to isotope dilution-mass spectrometry. Refer to KDIGO guidelines for clinical interpretation. In patients with unstable renal function, e.g. those with acute kidney injury, the eGFR may not accurately reflect actual GFR.Performed By: #### 05411-5, 2275-07 ####[facility] LABCLIA [id number] [address] AVEN[address] J94ZWGOWFWBK, [place] [address] [place] AMERICAGlucose [Mass/Vol]121 mg/hEZpkn93-40VchjfsvjtWood County Hospital Comment on above:Order Comment: Specimen Type: BLOOD SPECIMENOrdering Facility: [facility] Address:[address] [place], [place] [address]Result Comment: The [place] Diabetes Association (ADA) provides guidance for cutoff [...] Standards of Medical Care in Diabetes 2016, [place] Diabetes Association. Diabetes Care. 2016.39(Suppl 1).Performed By: #### 49703-5, 2275- ####[facility] LABIA [id number] [place] [address] [place] AMERICAPotassium [Moles/Vol]3.6 mmol/L Low3.7-5.1COhioHealth Grove City Methodist Hospital on above:Order Comment: Specimen Type: BLOOD SPECIMENOrdering Facility: [facility] Address:[address] [place], [place] [address]Performed By: #### 71719-5, 2275-07 ####[facility] METROHEALTH SYSTEMIA [id number] [place] [address] [place] AMERICAProtein [Mass/Vol]7.3 g/dLNormal6.3-8.0[facility] on above:Order Comment: Specimen Type: BLOOD SPECIMENOrdering Facility: [facility] Address:[address] [place], [place] [address]Performed By: #### 27525-6, 2275-07 ####[facility] LABIA [id number] [place] [address] [place] AMERICASodium [Moles/Vol]136 mmol/RWjksvv843-382AhhqntjzjProMedica Memorial Hospital on above:Order Comment: Specimen Type: BLOOD SPECIMENOrdering Facility: [facility] Address:[address] [place], [place] [address]Performed By: #### 16706-8, 2276-4 ####[facility] LABCLIA [id number] [place] [address] [place] AMERICAUrea nitrogen [Mass/Vol]9 mg/dLNormal7-21Wood County Hospital Comment on above:Order Comment: Specimen Type: BLOOD SPECIMENOrdering Facility: [facility] Address:[address] [place] [address] Performed By: #### 56601-4, 2276-4 ####[facility] LABCLIA [id number] [place] [address] [place] Ferritin SerPl-mCncon 67-36-6425Oniilxdt [Mass/Vol]392.0 ng/nSLhwh47.7-205.1 [facility] County HospitalComment on above:Order Comment: Specimen Type: BLOOD SPECIMENOrdering Facility: [facility] Address:[address] [place], [place] [address]Performed By: #### 29952-9, 2276-4 ####[facility] LABIA [id number] [place] [address] [place] AMERICAUS Pelvison 07-10-2024 Indication pelvic pain, dyspareunia Impression [...] By: Sayra Kate RDMS Read By: Lulú Jo M.D.MATERNAL MEDICINEUniversity Hospitals Portage Medical CenterRadiology Study observation (narrative)[facility] Medical CenterXR ABD 2V SUPINE W UPR/DECUB/CTLon 41-26-6847VO ABD 2V SUPINE W UPR/DECUB/CTL* * *Final Report* * * DATE OF [...] IMPRESSION: Mild to moderate colonic stool content Chief Clinical Officer: MINAL Transcribe Date/Time: Jul 13 2024 9:59A Dictated by : BUNNY LIANG MD This examination was interpreted and the report reviewed and electronically signed by: BUNNY LIANG MD on Jul 13 2024 10:05AM EST [id number] County HospitalXR Ankle - right 3 Viewson 27-31-4462Jqtgfog Result: Three views were taken today AP/MORT/LAT Ankle: No fractures or dislocations seen joint in good position and alignmentNOMS HealthcareNOMS HealthcareRadiology Study observation (narrative)NOMS HealthcareRECURRENT VAGINITIS (HTRX)on 67-42-2651URGDXITDJ GVYBDNL5EIXK HealthcareATOPOBIUM VAGINAE Not detectedNOMS HealthcareBVAB 2,3 (BACTERIAL VAGINOSIS ASSOCIATED BACTERIA 2, 3); MOBILUNCUS RKL9UARE HealthcareBVAB 2,3 (BACTERIAL VAGINOSIS ASSOCIATED BACTERIA 2, 3); MOBILUNCUS SPPNot detectedNOMS HealthcareCANDIDA ALBICANS, PARAPSILOSIS, FHEKXXPZPR0WSGY HealthcareCANDIDA ALBICANS, PARAPSILOSIS, TROPICALISNot detectedNOMS HealthcareCANDIDA SWSYTOGF0YIII HealthcareCANDIDA GLABRATANot detectedNOMS HealthcareCANDIDA TRCYKO2EBQA HealthcareCANDIDA KRUSEI Not detectedNOMS HealthcareCHLAMYDIA CKVKHCWLFOX8NJAH HealthcareCHLAMYDIA TRACHOMATISNot detectedNOMS HealthcareGARDNERELLA YMVWDTODG4VAIR Healthcare GARDNERELLA VAGINALISNot detectedNOMS HealthcareMEGASPHAERA (TYPES 1, 2)0NOMS HealthcareMEGASPHAERA (TYPES 1, 2)Not detectedNOMS HealthcareMYCOPLASMA VQTHDHULLS8ODAD HealthcareMYCOPLASMA GENITALIUMNot detectedNOMS Healthcare NEISSERIA TVBNECFJHDH4OKAI HealthcareNEISSERIA GONORRHOEAENot detectedNOMS HealthcareTRICHOMONAS WCPLXCJIV6QNMN HealthcareTRICHOMONAS VAGINALISNot detected NOMS HealthcareNOMS HealthcareMLR HEMOGLOBIN A1Con 18-56-1679Dwzmboa [Mass/Vol] 126 mg/dLNOThe Rehabilitation Institute of St. LouisGiixzfyaqwJwS5p (Bld) [Mass fraction]6 %4.5 - 6.2 %[facility] Comment on above:ADA RECOMMENDED LIMIT 4.0 - 6.0 ADA THERAPEUTIC TARGET < 7.0 ACTION SUGGESTED > 7.0 CLINISYNCNOSC HealthcareALL CBC WITH AUTO DIFFon 61-59-7595DISNXGOSE ABSOLUTE TKTR2MQHW HealthcareBasophils/100 WBC (Bld)0.4 %0.2 - 2.0 %NOM Healthcare Eosinophils/100 WBC (Bld)4.4 %0.9 - 7.0 %[facility] CareErythrocyte distribution width (RBC) [Ratio]13.2 %11.0 - 15.0 %[facility] CareHematocrit (Bld) [Volume fraction]41.6 %36.0 - 48.0 %[facility] CareHemoglobin (Bld) [Mass/Vol]14 g/dL 12.0 - 16.0 g/dLNOThe Rehabilitation Institute of St. LouisIMMATURE GRANULOCYTES ABS AUTO0.13HighNOThe Rehabilitation Institute of St. LouisImmature granulocytes/100 WBC (Bld)1.6 %High0.0 - 0.5 %[facility] Interpretation and review of laboratory resultsAbnormalNOThe [facility] Institute of St. Louis LYMPHOCYTES ABSOLUTE AUTO2.7NOSC HealthcareLymphocytes/100 WBC (Bld)33.8 %20.5 - 60.0 %[facility] CareMCH (RBC) [Entitic mass]32.6 pg26.7 - 34.0 pgNOLakeland Regional HospitalHC (RBC) [Mass/Vol]33.7 g/dL29.9 - 35.2 g/dLNOSC HealthcareMCV (RBC) [Entitic vol]96.7 fL81.0 - 99.0 fLNOMS HealthcareMONOCYTES ABSOLUTE AUTO0.5NOMS HealthcareMonocytes/100 WBC (Bld)5.9 %1.7 - 12.0 %NOMS HealthcareNEUTROPHILS ABSOLUTE AUTO4.4NOMS HealthcareNeutrophils/100 WBC (Bld)53.9 %43.0 - 75.0 %NOMS HealthcarePlatelet mean volume (Bld) [Entitic vol]10.4 fL9.5 - 13.5 fLNOMS HealthcareTBH EO #0.4NOMS HealthcareTBH ZVR620REOA HealthcareTBH RBC4.3NOMS HealthcareTBH WBC8.1NOMS HealthcareCLINISYNCNCURAHEALTH [facility] [place] [facility] [place] HealthcareC. difficile toxin genes SHEILA+probe Ql (Stl)on 66-94-2198Herdvpozzvildp and review of laboratory resultsAbnormalCleveland OhioHealth Doctors HospitalCLOSTRIDIUM DIFFICILE TOXIN BY PCRon 05-23-2024. difficile toxin genes SHEILA+probe Ql (Stl)PositiveAbnormal Negative for C. difficile toxin by PCRBarberton Citizens Hospital on above:A positive PCR result may indicate C.difficile infection or [...] without pre-agreed criteria for specimen submission. [place] 23-12-0913SZFUAnecqdiqj (GASTNO) ORION HARPER ([id number]) 1990 F Date Time Provider Department 05/23/24 ILIANA MERCADO During your visit today, we recorded the following information about you: Benito Prince RN 05/23/2024 3:25 PM Signed ----- Message [...] mg by mouth daily at bedtime. - fluticasone/umeclidin/vilanter (TRELEGY ELLIPTA INHALATION) Inhale as instructed. - escitalopram oxalate (LEXAPRO) 20 mg tablet Take 20 mg by mouth every morning. - amphetamine-dextroamphetamine XR (ADDERALL XR) 30 mg capsule Take 30 mg by mouth once daily. - ALPRAZolam (XANAX) 0.5 mg tablet Take 0.25 mg by mouth two times a day. - cariprazine (VRAYLAR) 4.5 mg capsule Take 4.5 mg by mouth once daily. Problem List As Of Date 05/23/2024 Noted Resolved Gastroparesis [K31.84] 11/02/2022 Encounter Status:Closed by BENITO PRINCE on 05/24/24[facility] POSTPROC EVALon 27-33-0932SIOV POSTPROC EVALHNO ID: [id number] Author: OBED BHATT APRN.CRNA Service: Anesthesiology Author Type: Nurse Acupuncture Physician Type: Anesthesia Postprocedure Evaluation Filed: 05/22/2024 14:22 Note Text: POST ANESTHESIA EVALUATION NOTE : 1990 Procedure Summary Date: 05/22/24 Room / Location: Ambulatory Surgery Anesthesia Start: 1345 Anesthesia Stop: 1422 Procedure: COLONOSCOPY DIAGNOSTIC Diagnosis: BRBPR (bright red blood per rectum) (Rectal bleeding) Scheduled Providers: Carol Winn MD; Obed Bhatt APRN.CHIEF PRIVACY OFFICER; Millicent Schmitz RN Responsible Provider: Obed Bhatt [...] May 22, 2024 TIME: 2:22 PM CSN: [id number] VA [facility] Center PRE-OPon 02-42-7525WUQY PRE-OPHNO ID: [id number] Author: OBED BHATT APRN.CRNA Service: Anesthesiology Author Type: Nurse Acupuncture Physician Type: Anesthesia Preprocedure Evaluation Filed: 05/22/2024 14:23 Note Text: ANESTHESIOLOGY DAY OF SURGERY NOTE : 1990 Procedure Information Anesthesia Start Date/Time: 05/22/24 1345 Scheduled providers: Carol Winn MD; Obed Bhatt APRN.CHIEF PRIVACY OFFICER; Millicent Schmitz RN Procedure: COLONOSCOPY DIAGNOSTIC Location: [...] and consent discussed: yes. Patient / Responsible Republican agrees to proceed: yes Patient / Surrogate [...] May 22, 2024 TIME: 2:22 PM CSN: [id number] Clinic [facility] PRE-OPHNO ID: [id number] Author: OBED BHATT APRN.CRNA Service: Anesthesiology Author Type: Nurse Acupuncture Physician Type: Anesthesia Preprocedure Evaluation Filed: 05/22/2024 14:21 Note Text: ANESTHESIOLOGY DAY OF SURGERY NOTE : 1990 Procedure Information Anesthesia Start Date/Time: 05/22/24 1345 Scheduled providers: Carol Winn MD; Obed Bhatt APRN.CHIEF PRIVACY OFFICER; Millicent Schmitz RN Procedure: COLONOSCOPY DIAGNOSTIC Location: [...] and consent discussed: yes. Patient / Responsible Republican agrees to proceed: yes Patient / Surrogate [...] May 22, 2024 TIME: 2:18 PM CSN: [id number] Health Bryan Hospital diff Tox gens Stl Ql SHEILA+probeon 05-22-2024. difficile toxin genes SHEILA+probe Ql (Stl)Positive AbnormalNegative for C. difficile toxin by PCRProMedica Memorial Hospital on above:Order Comment: Specimen Type: STOOL SPECIMENOrdering Facility: [facility] Address:[address] [place], [place] [address]Result Comment: A positive PCR result may indicate C.difficile infection or [...] for institutions without pre-agreed criteria for specimen submission.Performed By: #### 39563-8, CDEIA ####[facility] LABCLIA [id number] [place] [address] [place] AMERICACLOSTRIDIUM DIFFICILE TOXIN BY EIAon 05-22-2024. difficile toxin A+B IA Ql (Stl)Not detectedNormalNegative for C. difficile toxinProMedica Memorial Hospital on above:Order Comment: Specimen Type: STOOL SPECIMENOrdering Facility: [facility] Address:[address] [place], [place] [address]Result Comment: Toxin EIA is less sensitive than cell cytotoxin and PCR assays. Clinical correlation of PCR positive/toxin EIA negative results is required to distinguish C. difficle colonization from disease.Performed By: #### 03477-2, CDEIA ####[facility] LABCLIA [id number] [place] [address] [place] AMERICACOLONOSCOPYon 79-86-7533[facility] G[facility] Patient Name: Orion Harper Procedure Date: 05/22/2024 1:40 PM Date of : 1990 Admit Type: Outpatient Age: 33 Room: [facility] 2 Gender: Female Note Status: Finalized Attending MD: Carol Winn MD, [id number] Procedure: Colonoscopy Indications: Rectal bleeding, Change in [...] verified by the physician, the nurse, the energy project engineer and the electronics maintenance technician in the procedure room. Mental Status [...] bowel preparation was evaluated using the BBPS ([place] Bowel Preparation Scale) with scores of: Right [...] and rectum were ph (more content not included)...[facility], Radiologist, MD - 05/22/2024 [facility] Gastroenterology Gastrointestinal Endoscopy Patient Name: Orion Harper Procedure Date: 05/22/2024 1:40 PM Date of : 1990 Admit Type: Outpatient Age: 33 Room: [place] [address] Gender: Female Note Status: Finalized Attending MD: Carol Winn MD, [id number] Procedure: Colonoscopy Indications: Rectal bleeding, Change in [...] verified by the physician, the nurse, the energy project engineer and the electronics maintenance technician in the procedure room. 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 Mental Status [...] bowel preparation was evaluated using the BBPS ([place] Bowel Preparation Scale) with scores of: Right [...] office as previously scheduled. (more content not included)...NormalUniversity Hospitals [facility] Center ClevelandFlexible sigmoidoscopy studyon 24-00-6742Rfkqm [facility] Gastrointestinal Endoscopy Patient Name: Orion Harper Procedure Date: 05/22/2024 1:40 PM Date of : 1990 Admit Type: Outpatient Age: 33 Room: [place] [address] Gender: Female Note Status: Finalized Attending MD: Carol Winn MD, [id number] Procedure: Colonoscopy Indications: Rectal bleeding, Change in [...] verified by the physician, the nurse, the energy project engineer and the electronics maintenance technician in the procedure room. Mental Status [...] bowel preparation was evaluated using the BBPS ([place] Bowel Preparation Scale) with scores of: Right [...] and rectum were ph (more content not included)...PROVATION [facility] Medical CenterGastrointestinal pathogens identified SHEILA+probe Nom (Stl)on 77-43-7731Khrsgmvnxcuqy sp DNA SHEILA+probe Nom (Unsp spec)Not detectedNormalNot DetectedProMedica Memorial Hospital on above:Order Comment: Specimen Type: STOOL SPECIMENOrdering Facility: [facility] Address:[address] [place], [place] [address]Performed By: #### 55332-1 ####[facility] LABCLIA [id number] [place] [address] [place] AMERICASalmonella sp DNA HSEILA+probe Ql (Unsp spec)Not detected NormalNot DetectedProMedica Memorial Hospital on above:Order Comment: Specimen Type: STOOL SPECIMENOrdering Facility: [facility] Address:[address] [place], [place] [address]Performed By: #### 90195-4 ####[facility] LABCLIA [id number] [address] STATES OF DOCTORS HOSPITALShiga toxin stx gene SHEILA+probe Nom (Unsp spec)Not detectedNormalNot DetectedProMedica Memorial Hospital on above:Order Comment: Specimen Type: STOOL SPECIMENOrdering Facility: [facility] Address:[address] [place] [address] Performed By: #### 28853-5 ####[facility] LABCLIA [id number] [address] OF [place] Shigella sp DNA SHEILA+probe Ql (Unsp spec)Not detectedNormalNot DetectedProMedica Memorial Hospital on above:Order Comment: Specimen Type: STOOL SPECIMENOrdering Facility: [facility] Address:[address] [place], [place] [address]Performed By: #### 37762-0 ####[facility] LABCLIA [id number] [address] STATES OF AMERICAHISTORY PHYSICALon 24-37-1877NGIADSV PHYSICALHNO ID: [id number] Author: CAROL WINN MD Service: Gastroenterology Author [...] Harper DATE: May 22, 2024 TIME: 1:39 PMNormalWood County HospitalNCHILDREN[facility] PROGon 21-57-2705UXYZMOQ FRANCISCO ID: [id number] Author: LINDSEY BUCKLEY RN Service: ? Author [...] By: Lindsey Buckley RN In Department: AMBULATORY SURGERYNoMercer County Community HospitalNo Panel Informationon 05-22-2024 Radiology Study observation (narrative)[place] HealthcareSURGICAL PATHOLOGYon 51-71-5049GWDY REPORTNoMercy Memorial Hospital on above:Order Comment: Specimen Type: TISSUE SPECIMENOrdering Facility: [facility] Address: [address] [place], [place] [address]Result Comment: Surgical Pathology Report Case: [id number] Authorizing Provider: Carol Winn MD Collected: 05/22/2024 02:05 PM Ordering Location: Ambulatory Surgery Received: 05/22/2024 08:39 PM Pathologist: Fe Barnes MD Specimens: A) - Colon, Right, Biopsy, r/o microscopic colitis, r/o inflammation B) - Colon, Left, Biopsy, r/o microscopic colitis, r/o inflammationPerformed By: #### S ####[facility] LABCLIA [id number] [address]FINAL DIAGNOSISNormal [facility] on above:Order Comment: Specimen Type: TISSUE SPECIMENOrdering Facility: [facility] Address: [address] [place], [place] [address]Result Comment: A. Colon, right, biopsy: - Colonic mucosa with no significant pathologic change. B. Colon, left, biopsy: - Colonic mucosa with no significant pathologic change. Performed By: #### S ####[facility] LABCLIA [id number] [address]FINAL PERFORMING LABNormal [facility] on above:Order Comment: Specimen Type: TISSUE SPECIMENOrdering Facility: [facility] Address: [address] [place], [place] [address]Result Comment: Diagnostic interpretation performed at: [facility], [address] [place] [address] CLIA# [id number] Library Technician: DULCE Nelsonerformed By: #### S ####[facility] LABIA [id number] [place] [address] [place] AMERICAGROSS DESCRIPTIONNormalCSelect Medical Specialty Hospital [facility] [place] Comment on above:Order Comment: Specimen Type: TISSUE SPECIMENOrdering Facility: [facility] Address: [address] [place], [place] [address]Result Comment: A. Colon, Right, Biopsy Received in formalin are multiple pieces of boss, soft tissue aggregating to 1.4 x 0.5 x 0.1 cm. Totally submitted in two cassettes. B. Colon, Left, Biopsy Received in formalin are two pieces of boss, soft tissue aggregating to 0.4 x 0.2 x 0.1 cm. Totally submitted in one cassette. DB May 22, 2024 10:34 PM Gross examination performed at [place], [place] [address]Performed By: #### S ####[facility] [id number] [address] STATES OF [place] XR Ankle - right 3 Viewson 25-30-4072Ckzpizm Result: XRAY: Three views were taken today AP/MORT/LAT Ankle: No fractures or dislocations seen no spurring noted at the lateral ankle ligament complex noted as reported on the [facility] [place][note 2]Radiology Study observation (narrative)[facility] CareALL CBC WITH AUTO DIFFon 05-08-2024 BASOPHILS ABSOLUTE XIOA7WYFRUniversity of [facility] Health CareBasophils/100 WBC (Bld)0.4 %0.2 - 2.0 % [facility] CareEosinophils/100 WBC (Bld)2.2 %0.9 - 7.0 %[facility] Erythrocyte distribution width (RBC) [Ratio]12.9 %11.0 - 15.0 %[facility] Hematocrit (Bld) [Volume fraction]41.2 %36.0 - 48.0 %[facility] CareHemoglobin (Bld) [Mass/Vol]13.8 g/dL12.0 - 16.0 g/dLNOMS HealthcareIMMATURE GRANULOCYTES ABS AUTO0.19HighNOMS HealthcareImmature granulocytes/100 WBC (Bld)1.9 %High0.0 - 0.5 %[facility] HealthcareInterpretation and review of laboratory resultsAbnormalNOMS HealthcareLYMPHOCYTES ABSOLUTE BQSH9PECU HealthcareLymphocytes/100 WBC (Bld) 30.1 %20.5 - 60.0 %[facility] CareMCH (RBC) [Entitic mass]32.7 pg26.7 - 34.0 pg [facility] CareMCHC (RBC) [Mass/Vol]33.5 g/dL29.9 - 35.2 g/dLOREM COMMUNITY HOSPITAL HealthcareMCV (RBC) [Entitic vol]97.6 fL81.0 - 99.0 fLNOSC HealthcareMONOCYTES ABSOLUTE AUTO 0.7NOMS HealthcareMonocytes/100 WBC (Bld)6.6 %1.7 - 12.0 %[facility] NEUTROPHILS ABSOLUTE AUTO5.8NOMS HealthcareNeutrophils/100 WBC (Bld)58.8 %43.0 - 75.0 %[facility] CarePlatelet mean volume (Bld) [Entitic vol]10.8 fL9.5 - 13.5 fLNOMS HealthcareTBH EO #0.2NOMS HealthcareTBH JIL957CBVM HealthcareTBH RBC4.22 NOMSaint Luke'S North Hospital–Barry RoadTB WBC9.9NOMS HealthcareCLINISYNCNOMS HealthcareCNPNon 94-07-5771KNMCPnxqygujc (CARDMN) ORION HARPER ([id number]) 1990 F Date Time Provider Department 05/06/24 SOLO CARTY During your visit today, we recorded the following information about you: Criss Mccrary 05/06/2024 1:41 PM Signed Echo was faxed to Anne-Marie @ [phone] AND scanned into outside ep. Patient is [...] 20 mg by mouth every morning. - amphetamine-dextroamphetamine XR (ADDERALL XR) 30 mg capsule Take 30 mg by mouth once daily. - ALPRAZolam (XANAX) 0.5 mg tablet Take 0.25 mg by mouth two times a day. - cariprazine (VRAYLAR) 4.5 mg capsule Take 4.5 mg by mouth once daily. Problem List As Of Date 05/06/2024 Noted Resolved Gastroparesis [K31.84] 11/02/2022 Encounter Status:Closed by CRISS MCCRARY on 05/06/24No[facility] Cervical [facility] WO contraston 65-36-9640HtiMatthew [place] [id number] Magnetic Resonance Report Signed Patient: ORION HARPER MR#: [id number] : 1990 Acct:[id number] Age/Sex: 33 / F ADM Date: 05/03/24 Loc: MRI Attending Dr: SANDY HAMMOND Ordering Physician: SANDY HAMMOND Date of Service: 05/03/24 Procedure(s): MR cervical spine wo con Accession Number(s): [id number] cc: GIOVANI HAGEN ; SANDY HAMMOND [address] [address] Patient Name: ORION HARPER MRN: [facility]:[id number] date: 1990 Sex: F Assigned Patient Location: MRI Current Patient Location: MRI Accession/Order Number: [id number] Exam Date: 05/03/2024 14:00 Report Date: 05/03/2024 [...] for patient's symptoms. Electronically authenticated by: LAURIE CRUZ Date: 05/03/2024 16:01 Dictated By: Laurie Cruz M.D. Signed By: 05/03/24 1604 DD/ 1601 TD/TT: Chief Clinical Officer:KINGSHRadiology, Radiologist, - 05/03/2024 [facility] [address] [place] [address] Magnetic Resonance Report Signed Patient: ORION HARPER MR#: [id number] : 1990 Acct:[id number] Age/Sex: 33 / F ADM Date: 05/03/24 Loc: MRI Attending Dr: SANDY HAMMOND Ordering Physician: SANDY HAMMOND Date of Service: 05/03/24 Procedure(s): MR cervical spine wo con Accession Number(s): [id number] cc: GIOVANI HAGEN ; SANDY HAMMOND [place] [address] Patient Name: ORION HARPER MRN: [id number] date: 1990 Sex: F Assigned Patient Location: MRI Current Patient Location: MRI Accession/Order Number: [id number] Exam Date: 05/03/2024 14:00 Report Date: 05/03/2024 [...] for patient's symptoms. Electronically authenticated by: LAURIE CRUZ Date: 05/03/2024 16:01 Dictated By: Laurie Cruz M.D. Signed By: 05/03/24 1604 DD/ 1601 TD/TT: Chief Clinical Officer: [facility] CareRadiology Study observation (narrative)[facility] Cervical spine WO contrastOrdered By: Radiologist Radiology on 83-05-6282FY[employer] Work Phone: Liver ultrasound attenuation by transient elastography on 04-08-6554Xeakqqdza Report Date performed: May 02, 2024 Performed [...] Int J Clin Exp Med. 2015 Jan 15;8(10):46021-22.PMID: 55336353; PMCID: [id number]. Ruthann Bob, Juan MEEK, Rico M, Cosmo F, Tawnya J, Everardo O, Leyla F, Franci M, Alejandro G, Dorie A, Gianna E, Leyla L, French G, Kashmir A, Vicente U, Zapata S, Jordan, Max V, de Kole V, Pinalex M, Tsairam EA. Refining the Baveno elastography criteria for the definition of compensated advanced chronic liver disease. J Hepatol. 2020;74(5):9283-3979. doi: 10.1016/j.jhep.2020.11.050. Epub 2019Apr 01. PMID: 81403444. Izabel Bob, Chastity Moran, Martha Bob, Xiao oBb, Joon S, Nuria Roth, Trevin Roth, Trixie Kendrick.AASLD practice guidance on the clinical assessment and management of nonalcoholic fatty liver disease. Hepatology. 2022;77(5):1797- 1835. doi:10.1097/HEP.9780232883504516MnrnckglkBlanchard Valley Health SystemRadiology Study observation (narrative)[facility] Study observation (narrative)[facility] CenterA1AT SerPl-mCncon 98-63-1596Olkuu 1 antitrypsin [Mass/Vol]123 mg/dLLhhxri13-746Uomv HospitalComment on above:Order Comment: Specimen Type: BLOOD SPECIMEN [facility] Address: [address] [place], [place] [address]Performed By: #### 1825-9, 2064-4 #### [facility] CLIA [id number] [address] [place], [place] [address]AFP SerPl-mCncon 04-26-2024 AFP [Mass/Vol]3.01 ng/mLNormal<9.00Av HospitalComment on above:Order Comment: Specimen Type: BLOOD SPECIMEN [facility] Address: [address] [place], [place] [address]Result Comment: The Alpha- Fetoprotein test was performed using the EDUS DxI immunoenzymatic assay. Results obtained with different assay methods or kits cannot be used interchangeably.Performed By: #### 1834-1 #### [facility] CLIA [id number] [address] [place] [address] STATES OF AMERICAANA BY IFA WITH REFLEXon 36-11-3468Dqaouqm Ab Ql (S)NegativeNormalNegativeAv HospitalComment on above: Order Comment: Specimen Type: BLOOD SPECIMEN [facility] Address: [address] [place], [place] [address]Result Comment: Anti-nuclear antibody test is used as an aid in diagnosis of systemic autoimmune diseases. Where positive and clinically warranted, follow-up using disease-specific testing is recommended. Low positive titers are not uncommon with advanced age, certain chronic infections, and malignancies among others. Test methodology: Indirect fluorescence immunoassay (IFA) using HEp-2 cells. Performed By: #### ANAIFR #### [facility] CLIA [id number] [address] [place] [address] STATES OF DOCTORS HOSPITALCBC W Auto Differential panel (Bld)on 55-34-4256Bqrzxoxsv (Bld) [#/Vol]0.06 10*3/uLNINFUniversity Hospitals [facility] Differential cell count method Nom (Bld)AutoCleveland ClinicEosinophils (Bld) [#/Vol]NINFCleveland ClinicImmature granulocytes (Bld) [#/Vol]0.33 10*3/uLHigh NINVan Wert County Hospital ClinicImmature granulocytes/100 WBC (Bld)2.7 %[facility] Lymphocytes (Bld) [#/Vol]2.80 10*3/uLUniversity Hospitals Portage Medical CenterMCH (RBC) [Entitic mass] 32.0 pg26.0 - 34.0 pgClevelmission family health center ClinicMonocytes (Bld) [#/Vol]0.41 10*3/uLNINF [facility] CenterNeutrophils (Bld) [#/Vol]8.78 10*3/uLHighUniversity Hospitals Portage Medical Center Nucleated RBC (Bld) [#/Vol]NINFCleveland ClinicNucleated RBC/100 WBC (Bld) [Ratio]0.0 %/100 WBCUniversity Hospitals Portage Medical CenterPlatelet mean volume (Bld) [Entitic vol]10.8 fL9.0 - 12.7 fLClevelmission family health center ClinicPlatelets (Bld) [#/Vol]271 10*3/uLUniversity Hospitals Portage Medical CenterWBC (Bld) [#/Vol]12.39 10*3/uLKeenan Private Hospital ClinicBasophils (Bld) [#/Vol] 0.06 10*3/uLNormal<0.11Avon HospitalComment on above:Order Comment: Specimen Type: BLOOD SPECIMEN Ordering Facility: [facility] Address: [address] [place], [place] [address]Performed By: #### 1825-9, 2063-07 #### [facility] CLIA [id number] [address] [place] [address] [place] AMERICABasophils/100 WBC (Bld)0.5 % NormalBluff City HospitalComment on above:Order Comment: Specimen Type: BLOOD SPECIMEN Ordering Facility: [facility] Address: [address] [place], [place] [address]Performed By: #### 1825-9, 2063-07 #### [facility] CLIA [id number] [address] [place] [address] [place] AMERICADifferential cell count method Nom (Bld)AutoNormalAvon HospitalComment on above:Order Comment: Specimen Type: BLOOD SPECIMEN Ordering Facility: [facility] Address: [address] [place], [place] [address]Performed By: #### 1825-9, 2063-07 #### [facility] CLIA [id number] [address] [place] [address] [place] AMERICAEosinophils (Bld) [#/Vol] 10*3/uLNormal<0.46Avon HospitalComment on above:Order Comment: Specimen Type: BLOOD SPECIMEN Ordering Facility: [facility] Address: [address] [place], [place] [address]Performed By: #### 1825-9, 2063-07 #### [facility] CLIA [id number] [address] [place] [address] [place] AMERICAEosinophils/100 WBC (Bld)0.1 %NormalAvon HospitalComment on above:Order Comment: Specimen Type: BLOOD SPECIMEN Ordering Facility: [facility] Address: [address] [place], [place] [address]Performed By: #### 1825-9, 2063-07 #### [facility] CLIA [id number] [address] [place] [address] [place] AMERICAErythrocyte distribution width (RBC) [Ratio]12.5 %Barmzy95.5-15.0Av HospitalComment on above:Order Comment: Specimen Type: BLOOD SPECIMEN Ordering Facility: [facility] Address: [address] [place], [place] [address]Performed By: #### 1825-9, 2063-07 #### [facility] CLIA [id number] [address] [place] [address] [place] AMERICAHematocrit (Bld) [Volume fraction]46.1 %High36.0-46.0Avon HospitalComment on above:Order Comment: Specimen Type: BLOOD SPECIMEN Ordering Facility: [facility] Address: [address] [place], [place] [address]Performed By: #### 1825-9, 2063-07 #### [facility] CLIA [id number] [address] [place] [address] [place] AMERICAHemoglobin (Bld) [Mass/Vol] 15.5 g/nHDyjcyc53.5-15.5Avon HospitalComment on above:Order Comment: Specimen Type: BLOOD SPECIMEN Ordering Facility: [facility] Address: [address] [place], [place] [address]Performed By: #### 1825-9, 2063-07 #### [facility] CLIA [id number] [address] [place] [address] [place] AMERICAImmature granulocytes (Bld) [#/Vol]0.33 10*3/uLHigh<0.10Avon HospitalComment on above:Order Comment: Specimen Type: BLOOD SPECIMEN Ordering Facility: [facility] Address: [address] [place], [place] [address]Performed By: #### 1825-9, 2063-07 #### [facility] CLIA [id number] [address] [place] [address] [place] AMERICAImmature granulocytes/100 WBC (Bld)2.7 %NormalAvon HospitalComment on above:Order Comment: Specimen Type: BLOOD SPECIMEN Ordering Facility: [facility] Address: [address] [place], [place] [address]Performed By: #### 1825-9, 2063-07 #### [facility] CLIA [id number] [address] [place] [address] [place] AMERICALymphocytes (Bld) [#/Vol] 2.80 10*3/uLNormal1.00-4.00Avon HospitalComment on above:Order Comment: Specimen Type: BLOOD SPECIMEN Ordering Facility: [facility] Address: [address] [place], [place] [address]Performed By: #### 1824-12, 2063-07 #### [facility] CLIA [id number] [address] [place], [place] [address] [place] [facility] CLARE'S HOSPITALLymphocytes/100 WBC (Bld) 22.6 %NormalAv HospitalComment on above:Order Comment: Specimen Type: BLOOD SPECIMEN Ordering Facility: [facility] Address: [address] [place], [place] [address]Performed By: #### 18208-30, 2063-07 #### [facility] CLIA [id number] [address] [place], [place] [address] [facility] (RBC) [Entitic mass]32.0 wpLngzip28.0-34.0Avon HospitalComment on above:Order Comment: Specimen Type: BLOOD SPECIMEN Ordering Facility: [facility] Address: [address] [place], [place] [address]Performed By: #### 18208-30, 2063-07 #### [facility] CLIA [id number] [address] [place], [place] [address] [facility] HOSPITALMCHC (RBC) [Mass/Vol]33.6 g/iWWpikus26.5-36.0Avon HospitalComment on above:Order Comment: Specimen Type: BLOOD SPECIMEN Ordering Facility: [facility] Address: [address] [place], [place] [address]Performed By: #### 18208-30, 2063-07 #### [facility] CLIA [id number] [address] [place], [place] [address] [facility] (RBC) [Entitic vol]95.1 hDYobecz81.0-100.0Avon HospitalComment on above:Order Comment: Specimen Type: BLOOD SPECIMEN Ordering Facility: [facility] Address: [address] [place], [place] [address]Performed By: #### 18259, 2063-07 #### [facility] CLIA [id number] [address] [place], [place] [address] [place] AMERICAMonocytes (Bld) [#/Vol]0.41 10*3/uLNormal<0.87Avon HospitalComment on above:Order Comment: Specimen Type: BLOOD SPECIMEN Ordering Facility: [facility] Address: [address] [place], [place] [address]Performed By: #### 1825-9, 2063-07 #### [facility] CLIA [id number] [address] [place] [address] [place] AMERICAMonocytes/100 WBC (Bld)3.3 % NormalAvon HospitalComment on above:Order Comment: Specimen Type: BLOOD SPECIMEN Ordering Facility: [facility] Address: [address] [place], [place] [address]Performed By: #### 1825-9, 2063-07 #### [facility] CLIA [id number] [address] [place] [address] [place] AMERICANeutrophils (Bld) [#/Vol] 8.78 10*3/uLHigh1.45-7.50Avon HospitalComment on above:Order Comment: Specimen Type: BLOOD SPECIMEN Ordering Facility: [facility] Address: [address] [place], [place] [address]Performed By: #### 1825-9, 2063-07 #### [facility] CLIA [id number] [address] [place] [address] [place] AMERICANeutrophils/100 WBC (Bld) 70.8 %NormalAvon HospitalComment on above:Order Comment: Specimen Type: BLOOD SPECIMEN Ordering Facility: [facility] Address: [address] [place], [place] [address]Performed By: #### 1825-9, 2063-07 #### [facility] CLIA [id number] [address] [place] [address] [place] AMERICANucleated RBC (Bld) [#/Vol] 10*3/uLNormal<0.01Avon HospitalComment on above:Order Comment: Specimen Type: BLOOD SPECIMEN Ordering Facility: [facility] Address: [address] [place], [place] [address]Performed By: #### 1825-9, 2063-07 #### [facility] CLIA [id number] [address] [place], [place] [address] [place] AMERICANucleated RBC/100 WBC (Bld) [Ratio]0.0 /100 WBCNormalAvon HospitalComment on above:Order Comment: Specimen Type: BLOOD SPECIMEN Ordering Facility: [facility] Address: [address] [place], [place] [address]Performed By: #### 1825-9, 2063-07 #### [facility] CLIA [id number] [address] [place] [address] [place] AMERICAPlatelet mean volume (Bld) [Entitic vol]10.8 fLNormal9.0-12.7Avon HospitalComment on above:Order Comment: Specimen Type: BLOOD SPECIMEN Ordering Facility: [facility] Address: [address] [place], [place] [address]Performed By: #### 1825-9, 2063-07 #### [facility] CLIA [id number] [address] [place], [place] [address] [place] AMERICAPlatelets (Bld) [#/Vol]271 10*3/aAEmfjjd225-061Jfda HospitalComment on above:Order Comment: Specimen Type: BLOOD SPECIMEN Ordering Facility: [facility] Address: [address] [place], [place] [address]Performed By: #### 1825-9, 2063-07 #### [facility] CLIA [id number] [address] [place], [place] [address] [place] AMERICARBC (Bld) [#/Vol]4.85 10*6/uLNormal3.90-5.20Avon HospitalComment on above:Order Comment: Specimen Type: BLOOD SPECIMEN Ordering Facility: [facility] Address: [address] [place], [place] [address]Performed By: #### 1825-9, 2063-07 #### [facility] CLIA [id number] [address] [place] [address] STATES OF AMERICAWBC (Bld) [#/Vol]12.39 10*3/uLHigh3.70-11.00Avon HospitalComment on above:Order Comment: Specimen Type: BLOOD SPECIMEN Ordering Facility: [facility] Address: [address] [place], [place] [address]Performed By: #### 1825-9, 2063-07 #### [facility] CLIA [id number] [address] [place] [address] OF [facility]ORS [facility]OSPITALCC CBC W AUTO DIFF BLDon 13-79-6967WWL BASOPHILS # BLD AUTO0.06NIVanderbilt [facility] Center DIFFERENTIAL METHOD BLDAutoNOMCedar County Memorial Hospital EOSINOPHIL # BLD AUTO<0.03NIVanderbilt [facility] Center LYMPHOCYTES # BLD AUTO2.8NORipley County Memorial Hospital MONOCYTES # BLD AUTO0.41NINFSaint Luke's Hospital NEUTROPHILS # BLD AUTO8.78HighSaint Luke's Hospital NRBC # BLD AUTO <0.01NIVanderbilt Diabetes Center NRBC/100 WBC BLD-RTO0/100 WBCSaint Luke's Hospital PLATELET # BLD GBAB012RPNXSaint Luke's Hospital PMV BLD AUTO10.8 fL9.0 - 12.7 fLSaint Luke's Hospital WBC # BLD AUTO12.39[facility] GRANULOCYTES # BLD AUTO 0.33HighNIBaptist Memorial Hospital GRANULOCYTES/LEUK NFR BLD AUTO2.7 %[facility] (RBC) [Entitic mass]32 pg26.0 - 34.0 pgNOMS HealthcareSpecimen Type: BLOOD SPECIMEN Ordering Facility: [facility] Address: [address] [place] [address] Original Ordering Provider: ILIANA Zavala [id number] Visit (GASTNO) ORION HARPER ([id number]) 1990 F Date Time Provider Department 04/26/24 [...] do not hesitate to send me a Mixaloo message or call. FARNAZ Mohr Lauren, PA-C [...] she saw Dr. Hylton in 2021 in [facility]. 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 Colonosc (more content not included)...NormalUniversity [facility]als [facility] Office Visit (ORMDNA) MEREDITHORION Mcclellan ([id number]) 1990 F Date Time Provider Department 04/26/24 [...] decision making and plan (more content not included)...NormalWood [facility] Ceruloplasmin SerPl-mCncon 40-52-0435Ddpzcrlhfxhme [Mass/Vol]27 mg/mFHsuojh03-50 [facility] HospitalComment on above:Order Comment: Specimen Type: BLOOD SPECIMEN Ordering [facility] Address: [address] [place], [place] [address]Performed By: #### 1825-9, 2064-4 #### [facility] CLIA [id number] [address] [place], [place] [address] [place], [place] [address] [place] OF AMERICAComprehensive metabolic 2000 panelon 34-64-3946Sndcpdj [Mass/Vol]4.7 g/dL3.9 - 4.9 g/dLCarlstadt ClinicALP [Catalytic activity/Vol]144 U/LHigh34 - 123 U/LCleveland ClinicALT [Catalytic activity/Vol]192 U/LHigh7 - 38 U/LCleveland ClinicAnion gap [Moles/Vol]13 mmol/L 8 - 15 mmol/LCleveland ClinicAST [Catalytic activity/Vol]99 U/LHigh13 - 35 U/L [facility] CenterBilirubin [Mass/Vol]0.3 mg/dL0.2 - 1.3 mg/dLUniversity Hospitals Portage [facility] Center Calcium [Mass/Vol]9.2 mg/dL8.5 - 10.2 mg/dLUniversity Hospitals Portage Medical CenterChloride [Moles/Vol] 100 mmol/L98 - 107 mmol/LCleveland ClinicCO2 [Moles/Vol]25 mmol/L22 - 30 mmol/L [facility] CenterCreatinine [Mass/Vol]0.58 mg/dL0.58 - 0.96 mg/dLUniversity Hospitals Portage Medical Center GFR/1.73 sq M.predicted among non-blacks MDRD (S/P/Bld) [Vol rate/Area]121 mL/min/{1.73_m2}- PINUniversity Hospitals Elyria Medical CenterComment on above:Estimated Glomerular Filtration Rate (eGFR) is calculated using the 2020 CKD-EPI creatinine equation. This equation utilizes serum creatinine, sex, and age as parameters. The creatinine assay has traceable calibration to isotope dilution-mass spectrometry. Refer to KDIGO guidelines for clinical interpretation. In patients with unstable renal function, e.g. those with acute kidney injury, the eGFRmay not accurately reflect actual GFR.Glucose [Mass/Vol]95 mg/dL74 - 99 mg/dL [facility] Medical CenterComment on above:The [place] Diabetes Association (ADA) provides guidance for cutoff values for fasting glucose andrandom glucose. The ADA defines fasting as no caloric intake for at least 8 hours. Fasting plasma gl ucose results between 100 to 125 mg/dL indicate [...] Standards of Medical Care in Diabetes 2016, [place] Diabetes Association. Diabetes Care. 2016.39(Suppl 1). Interpretation and review of laboratory resultsAbnormalCleveland ClinicPotassium [Moles/Vol]4.0 mmol/L3.7 - 5.1 mmol/LClevelmission family health center ClinicProtein [Mass/Vol]8.0 g/dL 6.3 - 8.0 g/dLCarlstadt ClinicSodium [Moles/Vol]138 mmol/L136 - 144 mmol/L [facility] CenterUrea nitrogen [Mass/Vol]12 mg/dL7 - 21 mg/dLUniversity Hospitals Portage [facility] Center Albumin [Mass/Vol]4.7 g/dLNormal3.9-4.9Avon HospitalComment on above:Order Comment: Specimen Type: BLOOD SPECIMEN Order[facility] Facility[facility] Address: [address] [place], [place] [address]Performed By: #### 1825-9, 2063-07 #### [facility] CLIA [id number] [address] [place], [place] [address] [place] AMERICAALP [Catalytic activity/Vol] 144 U/JDybm60-486Yxhm HospitalComment on above:Order Comment: Specimen Type: BLOOD SPECIMEN Ordering Facility[facility] Address: [address] [place], [place] [address]Performed By: #### 1825, 2063-07 #### [facility] CLIA [id number] [address] [place] [address] [place] AMERICAALT [Catalytic activity/Vol] 192 U/LHigh7-38Avon HospitalComment on above:Order Comment: Specimen Type: BLOOD SPECIMEN Ordering Facility[facility] Address: [address] [place], [place] [address]Performed By: #### 1825-9, 2063-07 #### [facility] CLIA [id number] [address] [place] [address] [place] AMERICAAnion gap [Moles/Vol]13 mmol/LNormal8-15Avon HospitalComment on above:Order Comment: Specimen Type: BLOOD SPECIMEN Ordering Facility[facility] Address: [address] [place], [place] [address]Performed By: #### 1825-9, 2063-07 #### [facility] CLIA [id number] [address] [place] [address] [place] AMERICAAST [Catalytic activity/Vol] 99 U/VBffy03-01Pahq HospitalComment on above:Order Comment: Specimen Type: BLOOD SPECIMEN Ordering Facility[facility] Address: [address] [place], [place] [address]Performed By: #### 1825-9, 2063-07 #### [facility] CLIA [id number] [address] [place] [address] [place] AMERICABilirubin [Mass/Vol]0.3 mg/dLNormal0.2-1.3Avon HospitalComment on above:Order Comment: Specimen Type: BLOOD SPECIMEN Ordering Facility[facility] Address: [address] [place], [place] [address]Performed By: #### 1825-9, 2063-07 #### [facility] CLIA [id number] [address] [place] [address] [place] AMERICACalcium [Mass/Vol]9.2 mg/dL Normal8.5-10.2Avon HospitalComment on above:Order Comment: Specimen Type: BLOOD SPECIMEN Ordering Facility: [facility] Address: [address] [place] [address]Aznci[place]ga By: #### 1825-9, 2063-07 #### [facility] CLIA [id number] [address] [place] [address] [place] AMERICAChloride [Moles/Vol]100 mmol/SCiumun26-571Egbt HospitalComment on above:Order Comment: Specimen Type: BLOOD SPECIMEN Ordering Facility[facility] Address: [address] [place], [place] [address]Performed By: #### 1825-9, 2063-07 #### [facility] CLIA [id number] [address] [place] [address] [place] AMERICACO2 [Moles/Vol]25 mmol/L Uhglrj80-16Zwgm HospitalComment on above:Order Comment: Specimen Type: BLOOD SPECIMEN Ordering Facility[facility] Address: [address] [place], [place] [address]Performed By: #### 1825-9, 2063-07 #### [facility] CLIA [id number] [address] [place] [address] [place] AMERICACreatinine [Mass/Vol]0.58 mg/dLNormal0.58-0.96Av HospitalComment on above:Order Comment: Specimen Type: BLOOD SPECIMEN Ordering Facility[facility] Address: [address] [place], [place] [address]Performed By: #### 1825-9, 2063-07 #### [facility] [place] [id number] [address] [place] [address] [place] AMERICACreatinine and Glomerular filtration rate.predicted panel (S/P/Bld)121 mL/min/1.73m???Normal>=60Avon HospitalComment on above:Order Comment: Specimen Type: BLOOD SPECIMEN Order[facility] Facility[facility] Address: [address] [place], [place] [address]Result Comment: Estimated Glomerular Filtration Rate (eGFR) is calculated using the 2020 CKD-EPI cre atinine equation. This equation utilizes serum creatinine, sex, and age as parameters. The creatinine assay has traceable calibration to isotope dilution- mass spectrometry. Refer to KDIGO guidelines for clinical interpretation. In patients with unstable renal function, e.g. those with acute kidney injury, the eGFR may not accurately reflect actual GFR.Performed By: #### 1825-9, 2063-07 #### [facility] CLIA [id number] [address] [place] [address] [place] AMERICAGlucose [Mass/Vol]95 mg/dL Fhsjsx68-63Qlwc HospitalComment on above:Order Comment: Specimen Type: BLOOD SPECIMEN Ordering Facility[facility] Address: [address] [place], [place] [address]Result Comment: The [place] Diabetes Association (ADA) provides guidance for cutoff [...] Standards of Medical Care in Diabetes 2016, [place] Diabetes Association. Diabetes Care. 2016.39(Suppl 1).Performed By: #### 1825-9, 2063-07 #### [facility] CLIA [id number] [address] [place] [address] [place] AMERICAPotassium [Moles/Vol]4.0 mmol/LNormal3.7-5.1Avon HospitalComment on above:Order Comment: Specimen Type: BLOOD SPECIMEN Ordering Facility[facility] Address: [address] [place], [place] [address]Performed By: #### 1825-9, 2063-07 #### [facility] CLIA [id number] [address] [place] [address] [place] AMERICAProtein [Mass/Vol]8.0 g/dL Normal6.3-8.0Av HospitalComment on above:Order Comment: Specimen Type: BLOOD SPECIMEN Ordering [facility] Address: [address] [place], [place] [address]Performed By: #### 1825-9, 2063-07 #### [facility] CLIA [id number] [address] [id number], [place] [address] [place] AMERICASodium [Moles/Vol]138 mmol/L Howcte814-069Vyht HospitalComment on above:Order Comment: Specimen Type: BLOOD SPECIMEN Ordering Facility[facility] Address: [address] [place], [place] [address]Performed By: #### 1825-9, 2063-07 #### [facility] CLIA [id number] [address] [place] [address] [place] AMERICAUrea nitrogen [Mass/Vol]12 mg/dLNormal7-21Avon HospitalComment on above:Order Comment: Specimen Type: BLOOD SPECIMEN Ordering Facility[facility] Address: [address] [place], [place] [address]Performed By: #### 1825-9, 2063-07 #### [facility] CLIA [id number] [address] [place] [address] [place] AMERICAFERRITINon 04-26-2024 Ferritin [Mass/Vol]420.9 ng/mMWdsq76.7 - 205.1 ng/mLCleveland ClinicFerritin SerPl-mCncon 48-55-1735Srspboxk [Mass/Vol]420.9 ng/hZEakg08.7-205.1An Hospital Comment on above:Order Comment: Specimen Type: BLOOD SPECIMEN Ordering [facility] Address: [address] [place], [place] [address]Performed By: #### 1825-9, 2063-07 #### [facility] CLIA [id number] [address] [place] [address] [place] AMERICAFerritin [Mass/Vol]on 07-70-9914Ibtbahtbxgrxil and review of laboratory resultsAbnormalCleveland OhioHealth Doctors HospitalHAV IgM Ser Qlon 23-27-8097HAJ IgM Ql (S)NegativeNormal NegativeAv HospitalComment on above:Order Comment: Specimen Type: BLOOD SPECIMEN Order[facility] Address: [address] [place], [place] [address]Result Comment: No evidence of recent infection with Hepatitis A virus.Performed By: #### 81247-9, 63852-8, 5-3 #### [facility] CLIA [id number] [address] [place] [address] [place] AMERICAHBV core IgM Ser Qlon 89-47-9314VJZ core IgM Ql (S)NegativeNormalNegativeAvon HospitalComment on above:Order Comment: Specimen Type: BLOOD SPECIMEN Ordering Facility[facility] Address: [address] [place], [place] [address]Result Comment: No evidence of recent infection with Hepatitis B virus. Should recent infection be suspected, repeat testing may be considered 3-4 weeks after this draw.Performed By: #### 27806-1, 11370-5, 3 #### [facility] CLIA [id number] [address] [place] [address] [place] AMERICAHBV surface Ag Ser Qlon 10-08-0978AVR surface Ag Ql (S)NegativeNormalNegativeAvon HospitalComment on above:Order Comment: Specimen Type: BLOOD SPECIMEN Ordering [facility] Address: [address] [place], [place] [address]Performed By: #### 1825-9, 4-4 #### [facility] CLIA [id number] [address] [place] [address] [place] AMERICAHCV Ab Ser Qlon 04-26-2024 HCV Ab Ql (S)NegativeNormalNegativeAvon HospitalComment on above:Order Comment: Specimen Type: BLOOD SPECIMEN Ordering Facility[facility] Address: [address] [place], [place] [address]Result Comment: The result suggests no evidence of active infection with Hepatitis C virus. Should recent infection be suspected, repeat testing may be considered 4-6 weeks after this draw. Performed By: #### 87138-0 #### [facility] CLIA [id number] [address] [place] [address] [place] AMERICAIron and Iron binding capacity panelon 36-12-4549Ykdqpojdygmdcv and review of laboratory resultsNormal Carlstadt ClinicIron [Mass/Vol]105 ug/dL41 - 186 ug/dLCarlstadt ClinicIron binding capacity [Mass/Vol]340 ug/dL232 - 386 ug/dLClelancaster municipal hospital ClinicIron/TIBC [Molar ratio]30.9 %15.0 - 57.0 %[facility] CenterIron [Mass/Vol]105 ug/dLNormal 41-186Avon HospitalComment on above:Order Comment: Specimen Type: BLOOD SPECIMEN [facility] Address: [address] [place], [place] [address]Performed By: #### 1825-9, 2063-07 #### [facility] CLIA [id number] [address] [place] [address] STATES OF AMERICAIron binding capacity [Mass/Vol]340 ug/yYPxjhut325-573Uqgc HospitalComment on above:Order Comment: Specimen Type: BLOOD SPECIMEN Ordering [facility] Address: [address] [place], [place] [address]Performed By: #### 1825-9, 2063-07 #### [facility] CLIA [id number] [address] [place] [address] STATES OF AMERICAIron/TIBC [Molar ratio]30.9 %Qlxrcx92.0-57.0Av HospitalComment on above:Order Comment: Specimen Type: BLOOD SPECIMEN Ordering Facility: [facility] Address: [address] [place], [place] [address]Performed By: #### 1825-9, 2063-07 #### [facility] CLIA [id number] [address] [place] [address] UNITED STATES OF AMERICALaboratory - Hematology and Cell countson 14-41-5365Irfpcozox/100 WBC (Bld)0.5 %[facility] Eosinophils/100 WBC (Bld)0.1 %[facility] HealthcareErythrocyte distribution width (RBC) [Ratio]12.5 %11.5 - 15.0 %[facility] HealthcareHematocrit (Bld) [Volume fraction]46.1 %High36.0 - 46.0 %[facility] HealthcareHemoglobin (Bld) [Mass/Vol]15.5 g/dL11.5 - 15.5 g/dLOREM COMMUNITY [facility]PITAL HealthcareLymphocytes/100 WBC (Bld)22.6 %[facility] HealthcareMCHC (RBC) [Mass/Vol]33.6 g/dL30.5 - 36.0 g/dLUniversity of Missouri Health CareMCV (RBC) [Entitic vol]95.1 fL80.0 - 100.0 fLOREM COMMUNITY [facility]PITAL HealthcareMonocytes/100 WBC (Bld)3.3 % [facility] HealthcareNeutrophils/100 WBC (Bld)70.8 %[facility] HealthcareRBC (Bld) [#/Vol] 4.85 10*6/uL3.90 - 5.20 m/uLOREM COMMUNITY [facility]OSPITAL HealthcareMitochondria Ab IF Ql (S)on 83-17-6249Tdcvwdgquboy M2 Ab IA Qn (S)2.8 UnitsNormal<=20.0Avon HospitalComment on above:Order Comment: Specimen Type: BLOOD SPECIMEN Ordering Facility: [facility] Address: [address] [place], [place] [address]Performed By: #### 1825-9, 2063-07 #### [facility] CLIA [id number] [address] [place] [address] STATES OF DOCTORS HOSPITALMitochondria M2 Ab Ql (S) NegativeNormalNegativeAv HospitalComment on above:Order Comment: Specimen Type: BLOOD SPECIMEN Ordering Facility: [facility] Address: [address] [place], [place] [address]Result Comment: Anti-mitochondrial antibody test is used as an aid in diagnosis of primary biliary cholangitis. Clinical correlation is required.Performed By: #### 1825-9, 2063-07 #### [facility] CLIA [id number] [address] [place] [address] Panel Informationon 85-13-2154Gkxonhgyd ClinicInterpretation and review of laboratory results AbnormalNOSaint Luke's East Hospital HealthcarePT panel Coag (PPP)on 52-99-1684OWF Coag (PPP) [Relative time]0.9 {INR}0.9 - 1.3Clevelmission family health center ClinicComment on above:Vitamin K Antagonist (VKA) Therapeutic Range: INR 2 to 3 (Target INR of 2.5) Note: For patients treated with VKA drugs, such as warfarin, the [place] [employer] 2012 Guideline recommends [...] (target INR of 3). Linda LEWIS et al. Chest 2012, 141:7S-47S Lit SALVADOR, et al. [facility] 2017, 70: 252-289 Interpretation and review of laboratory resultsNormalCBerger HospitalPT Coag (PPP) [Time]10.6 [facility] ClinicINR Coag (PPP) [Relative time] 0.9 {INR}Normal0.9-1.3Avon HospitalComment on above:Order Comment: Specimen Type: BLOOD SPECIMEN Ordering Facility: [facility] Address: [address] [place], [place] [id number] Comment: Vitamin K Antagonist (VKA) Therapeutic Range: INR 2 to 3 (Target INR of 2.5) Note: For patients treated with VKA drugs, such as warfarin, the [place] [employer] 2012 Guideline recommends [...] 2.5 to 3.5 (target INR of 3). Guyatt GH, et al. Chest 2012, 141:7S-47S Lit RA, et al. [facility] 2017, 70: 252-289Performed By: #### 79951-9 #### [facility] CLIA [id number] [address] [place] [address] [place] STATES OF DOCTORS HOSPITALPT Coag (PPP) [Time]10.6 sNormal9.7-13.0 [place] City HospitalComment on above:Order Comment: Specimen Type: BLOOD SPECIMEN Ordering Facility: [facility] Address: [address] [place], [place] [address]Performed By: #### 69321-0 #### [facility] [place] [id number] [address] [place] [address] [facility] CENTERSmooth muscle Ab Ql (S)on 73-75-1658QCKLA SMOOTH MUSCLE IGG QUALITATIVENegativeNormalNegativeAvon HospitalComment on above:Order Comment: Specimen Type: BLOOD SPECIMEN Ordering Facility: [facility] Address: [address] [place], [place] [address]Performed By: #### 1825-9, 2063-07 #### [facility] [place] [id number] [address] [place] [address] [place] STATES OF AMERICAACTIN SMOOTH MUSCLE IGG QUANTITATIVE5 UnitsNormal<20Avon HospitalComment on above:Order Comment: Specimen Type: BLOOD SPECIMEN Ordering Facility: [facility] Address: [address] [place], [place] [address]Performed By: #### 1825-9, 2063-07 #### [facility] CLIA [id number] [address] [place] [address] STATES OF DOCTORS HOSPITALECHOon 04-09-2024 EchocardiographyEchocardiography Report: Transthoracic Echo [facility] Date of service: 04/09/2024 3:28:57 PM Ordering physician: SOLO CARTY Indication: Syncope Technologist: Josephien West [facility] Interpreting physician: Sheri Ac [...] * * Final * * * [facility] : [id number]u [facility] 29-85-8971YLZTAphgtvsyn (CARDMN) ORION HARPER ([id number]) 1990 F Date Time Provider Department 04/05/24 SOLO CARTY During your visit today, we recorded the following information about you: Criss Mccrary 04/05/2024 1:02 PM Signed Outside ep I have a copy @ my desk Jaspal Velezavia 04/09/2024 11:49 AM Signed April 09, 2024 Patient Contact Number: [phone] Patient last seen within the last year: Yes 12/15 Reason For Call: Test Results Zio- 12/2023 Physician: Dr. Carty Patient was informed that non-urgent calls may be returned within the next three business days. Yes Joy Dahl RN 04/09/2024 2:14 PM Signed Cardiac clearance and office noted faxed to [facility]. In regards to Zio monitor. Dr Carty reviewed no concerning findings. JW Ruiz Octavia [...] Medical Records [3576] Cmt: Cardio Clearance [facility] Results [95] Cmt: Zio Prescriptions as of 04/09/2024 - amphetamine-dextroamphetamine XR (ADDERALL XR) 30 mg capsule Take 30 mg by mouth once daily. - ALPRAZolam (XANAX) 0.5 mg tablet Take 0.25 mg by mouth two times a day. - cariprazine (VRAYLAR) 4.5 mg capsule Take 4.5 mg by mouth once daily. Problem List As Of Date 04/05/2024 Noted Resolved Gastroparesis [K31.84] 11/02/2022 Encounter Status:Closed by CRISS MCCRARY on 04/05/24NoMercer County Community HospitalHEMOGLOBIN A1con 23-04-8482OWLSCCFNZK A1c5.5 % of total Hgb Normal<5.7Quest DiagnosticsComment on above:Result Comment: For the purpose of screening for the presence of diabetes: <5.7% Consistent with the absence of diabetes 5.7-6.4% Consistent with increased risk for diabetes (prediabetes) > or =6.5% Consistent with diabetes This assay result is consistent with a decreased risk of diabetes. Currently, no consensus exists regarding use of hemoglobin A1c for diagnosis of diabetes in children. According to [place] Diabetes Association (ADA) guidelines, hemoglobin A1c <7.0% represents optimal control in non- diabetic patients. Different metrics may apply to specific patient populations. Standards of Medical Care in Diabetes(ADA).Performed By: #### 496, 733 #### [facility] [address], [address] [place], [place] [address] Jet Dyeing Machine Tender: Tim CARDONAOTASSIUMdevon 77-29-0959Owhgwlyog [Moles/Vol]3.7 mmol/LNormal3.5-5.3Quest DiagnosticsComment on above:Order Comment: FASTING:YES FASTING: YESPerformed By: #### 496, 733 #### [facility] [address], [address] [place], [place] [address] Jet Dyeing Machine Tender: Tim Mann 17-74-1170JWYNUioqbbmjy (WENMN) ORION HARPER ([id number]) 1990 F Date Time Provider Department 04/02/24 SOLO CARTY During your visit today, we recorded the following information about you: Criss Mccrary 04/02/2024 3:53 PM Signed This 'Ankle Surgery Clearance' was faxed over to Dr. Giovani Hagen (PCP) @ [phone] for signing. I spoke with the patient. [...] Reason for Visit: Received Outside Medical Records [3570] Cmt: [facility] Prescriptions as of 04/02/2024 - amphetamine-dextroamphetamine XR (ADDERALL XR) 30 mg capsule Take 30 mg by mouth once daily. - ALPRAZolam (XANAX) 0.5 mg tablet Take 0.25 mg by mouth two times a day. - cariprazine (VRAYLAR) 4.5 mg capsule Take 4.5 mg by mouth once daily. Problem List As Of Date 04/02/2024 Noted Resolved Gastroparesis [K31.84] 11/02/2022 Encounter Status:Closed by CRISS MCCRARY on 04/02/24NoCincinnati VA Medical CenterP,APTIMA HPV,AGE GDLNon 99-94-4437RMZ GDLN ACOG TESTINGNote. NOMS HealthcareComment on above:TESTS RESULT FLAG UNITS REF RANGE LAB Clinician Provided Cytology Information Source.............Vagina No. of containers..01 ThinPrep Vial Age Algo ACOG Starla... 30-65 FLAG LEGEND: L-Low Normal,H-High Normal,LL-Alert Low,HH-Alert High <-Panic Low,>-Panic High,A-Abnormal,AA-Critical Abnormal Performed at: 01 =[address] [address] Zoraida Hawkins MD, HPV APTIMANegativeNegativeNOMS HealthcareComment on above:This nucleic acid amplification test detects fourteen high- risk HPV types (16,18,31,33,35,39,45,51,52,56,58,59,66,68) without differentiation. Performed at: =[address] [id number] [employer]: Zoraida Hawkins MD, Phone: [phone] Performed at: [address] [id number] [employer]: Zoraida Hawkins MD, Phone: [phone] IGP, APTIMA HPV, RFX 16/18,45Note.NOMS HealthcareComment on above:TESTS RESULT FLAG UNITS REF RANGE LAB DIAGNOSIS: 02 NEGATIVE FOR INTRAEPITHELIAL LESION OR MALIGNANCY. Specimen adequacy: 02 Satisfactory for evaluation. Performed by: 02 Zehra Brush, Service Liaison Representative (ASCP) . 02 Note: Note 02 The [...] Low,>-Panic High,A-Abnormal,AA-Critical Abnormal Performed at: [address] [address] Zoraida Hawkins MD, SPATULA-ALONE [facility] Ankle - right WO contraston 64-47-4626E[address] [address] Magnetic Resonance Report Signed Patient: ORION HARPER MR#: [id number] : 1990 Acct:[id number] Age/Sex: 33 / F ADM Date: 03/14/24 Loc: MRI Attending Dr: Laurie Navas M.D. Ordering Physician: Laurie Navas M.D. Date of Service: 03/14/24 Procedure(s): MR ankle RT wo con Accession Number(s): [id number] cc: GIOVANI HAGEN ; Laurie Navas M.D. [address] [address] Patient Name: ORION HARPER MRN: [id number] date: 1990 Sex: F Assigned Patient Location: MRI Current Patient Location: Accession/Order Number: [id number] Exam Date: 03/14/2024 15:04 Report Date: 03/17/2024 [...] complex. The other ligaments of the ankle inclu (more content not included)...TBHRadiology, Radiologist, MD - 03/17/2024 [place] [address] Magnetic Resonance Report Signed Patient: ORION HARPER MR#: [id number] : 1990 Acct:[id number] Age/Sex: 33 / F ADM Date: 03/14/24 Loc: MRI Attending Dr: Laurie Navas M.D. Ordering Physician: Laurie Navas M.D. Date of Service: 03/14/24 Procedure(s): MR ankle RT wo con Accession Number(s): [id number] cc: GIOVANI HAGEN ; Laurie Navas M.D. 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 Ordering Physician: Laurie Navas M.D. Date of Service: 03/04/24 Procedure(s): XR ankle RT min 3V Accession Number(s): [id number] cc: GIOVANI HAGEN ; Laurie Navas M.D. The [address] [address] Patient Name: ORION HARPER MRN: [id number] date: 1990 Sex: F Assigned Patient Location: Current Patient Location: Accession/Order Number: [id number] Exam Date: 03/04/2024 08:02 Report Date: 03/06/2024 [...] BUTLER Date: 03/06/2024 07:20 Dictated By: Jackson Butelr M.D. Signed By: 03/06/24722 DD/ 9 TD/TT: Chief Clinical Officer:TBHRadiology, Radiologist, MD - 03/06/2024 [place] [address] XRay Report Signed Patient: ORION HARPER MR#: [id number] : 1990 Acct:[id number] Age/Sex: 33 / F ADM Date: 03/04/24 Loc: EC Attending Dr: Laurie Navas M.D. Ordering Physician: Laurie Navas M.D. Date of Service: 03/04/24 Procedure(s): XR ankle RT min 3V Accession Number(s): [id number] cc: GIOVANI HAGEN ; Laurie Navas M.D. The [address] [address] Patient Name: ORION HARPER MRN: [id number] date: 1990 Sex: F Assigned Patient Location: Current Patient Location: Accession/Order Number: [id number] Exam Date: 03/04/2024 08:02 Report Date: 03/06/2024 [...] M.D. Signed By: 03/06/24722 DD/ 9 TD/TT: Chief Clinical Officer: [facility] HealthcareRadiology Study observation (narrative)NOM HealthcareXR ANKLE RT MIN 3VOrdered By: Radiologist Radiology on 88-09-5640AD[facility]L [facility] Work Phone: XR CERVICAL SPINE 2-3Von 71-50-1352Xwq[place] [id number] XRay Report Signed Patient: ORION HARPER MR#: [id number] : 1990 Acct:[id number] Age/Sex: 33 / F ADM Date: 01/12/24 Loc: RAD Attending Dr: GIOVANI HAGEN Ordering Physician: GIOVANI HAGEN Date of Service: 01/12/24 Procedure(s): XR cervical spine 2-3V Accession Number(s): [id number] cc: GIOVANI HAGEN [place] [id number] Patient Name: ORION HARPER MRN: [id number] date: 1990 Sex: F Assigned Patient Location: [facility] Current Patient Location: ED.MAIN Accession/Order Number: [id number] Exam Date: 01/12/2024 16:55 Report Date: 01/17/2024 06:21 At the request of: GIOVANI HAGEN Procedure: XR cervical spine 2-3V EXAMINATION: XR cervical spine 2-3V HISTORY: cervical vdoqgejdaepveC68.12 , neck pain, numbness in shoulders and [...] if symptoms persist. Electronically authenticated by: LAURIE CRUZ Date: 01/17/2024 06:21 Dictated By: Laurie Cruz M.D. Signed By: 01/17/24622 DD/ 0 TD/TT: Chief Clinical Officer:TBHRadiology, Radiologist, - 01/17/2024 [place] [address] XRay Report Signed Patient: ORION HARPER MR#: [id number] : 1990 Acct:[id number] Age/Sex: 33 / F ADM Date: 01/12/24 Loc: RAD Attending Dr: GIOVANI HAGEN Ordering Physician: GIOVANI HAGEN Date of Service: 01/12/24 Procedure(s): XR cervical spine 2-3V Accession Number(s): [id number] cc: GIOVANI HAGEN [place] [id number] Patient Name: ORION HARPER MRN: [id number] date: 1990 Sex: F Assigned Patient Location: RAD Current Patient Location: ED.MAIN Accession/Order Number: [id number] Exam Date: 01/12/2024 16:55 Report Date: 01/17/2024 06:21 At the request of: GIOVANI HAGEN Procedure: XR cervical spine 2-3V EXAMINATION: XR cervical spine 2-3V HISTORY: cervical pjitoppkqcdlhF28.12 , neck pain, numbness in shoulders and [...] if symptoms persist. Electronically authenticated by: LAURIE CRUZ Date: 01/17/2024 06:21 Dictated By: Laurie Cruz M.D. Signed By: 01/17/24622 DD/ 0 TD/TT: Chief Clinical Officer: [facility] HealthcareRadiology Study observation (narrative)[facility] CareXR CERVICAL SPINE 2-3VOrdered By: Radiologist Radiology on 09-43-7077TW[employer] Work Phone: ecg 12 leadon 12-04-7609Wqfqfddcpys Rate : 88 BPM Atrial Rate : 88 BPM P-R Interval : 148 ms QRS Duration : 78 ms Q-T Interval : 380 ms QTC Calculation(Bazett) : 459 ms Calculated P [place] : 62 degrees Calculated R [place] : 55 degrees Calculated T [place] : 38 degrees NORMAL SINUS RHYTHM NORMAL ECG Confirmed by MD BAH HEBA ([id number]) on 12/30/2023 6:45:12 PM NAME : ORION HARPER PID : [id number] : 1990 Gender : Female Race : Other ORD : [id number] Procedure Date : Dec 19 2023 13:51:58 Edit Date : Dec 30 2023 18:45:15 Diagnosis: NORMAL SINUS RHYTHM NORMAL ECG Confirmed by MD BAH HEBA ([id number]) on 12/30/2023 6:45:12 PM Test Reason : Location : 314 : J14 J1-4 Overread By : MD BAH HEBA Edited By : MD BAH HEBA Referred By : , Acquired by : BRYCE JOSEPHadiology, RadiologistMD - 12/30/2023 Ventricular Rate : 88 BPM Atrial Rate : 88 BPM P-R Interval : 148 ms QRS Duration : 78 ms Q-T Interval : 380 ms QTC Calculation(Bazett) : 459 ms Calculated P [place] : 62 degrees Calculated R [place] : 55 degrees Calculated T [place] : 38 degrees NORMAL SINUS RHYTHM NORMAL ECG Confirmed by MD BAH HEBA ([id number]) on 12/30/2023 6:45:12 PM NAME : ORION HARPER PID : [id number] : 1990 Gender : Female Race : Other ORD : [id number] Procedure Date : Dec 19 2023 13:51:58 Edit Date : Dec 30 2023 18:45:15 Diagnosis: NORMAL SINUS RHYTHM NORMAL ECG Confirmed by MD BAH HEBA ([id number]) on 12/30/2023 6:45:12 PM Test Reason : Location : [facility] : [facility]1-4 Overread By : MD BAH HEBA Edited By : MD BAH HEBA Referred By : , Acquired by : CHELSEY JOSEPH [facility] CareEC 12 leadOrdered By: Radiologist Radiology on 30-98-6437UDUDUniversity of Missouri Health Care Work Phone: all CBC WITH AUTO DIFFon 37-46-0167KSUZOIEQT ABSOLUTE AUTO0.0NOMS HealthcareBasophils/100 WBC (Bld)0.4 %0.2 - 2.0 %[facility] Healthcare Eosinophils/100 WBC (Bld)2.8 %0.9 - 7.0 %[facility] Health CareErythrocyte distribution width (RBC) [Ratio]12.4 %11.0 - 15.0 %[facility] HealthcareHematocrit (Bld) [Volume fraction]41.9 %36.0 - 48.0 %[facility] CareHemoglobin (Bld) [Mass/Vol]14.2 g/dL 12.0 - 16.0 g/dLUniversity of Missouri Health CareIMMATURE GRANULOCYTES ABS AUTO0.03NOMS [facility] Immature granulocytes/100 WBC (Bld)0.4 %0.0 - 0.5 %[facility] Health CareLYMPHOCYTES ABSOLUTE AUTO2.8NOMS HealthcareLymphocytes/100 WBC (Bld)35.6 %20.5 - 60.0 %[facility] ServicesH (RBC) [Entitic mass]32.1 pg26.7 - 34.0 pgNOMS HealthcareMCHC (RBC) [Mass/Vol]33.9 g/dL29.9 - 35.2 g/dLNOMS HealthcareMCV (RBC) [Entitic vol]94.8 fL 81.0 - 99.0 fLNOMS HealthcareMONOCYTES ABSOLUTE AUTO0.5[facility] Monocytes/100 WBC (Bld)6.0 %1.7 - 12.0 %[facility] HealthcareNEUTROPHILS ABSOLUTE AUTO 4.3NOMS HealthcareNeutrophils/100 WBC (Bld)54.8 %43.0 - 75.0 %[facility] Platelet mean volume (Bld) [Entitic vol]10.4 fL9.5 - 13.5 fLNOMS HealthcareTBH EO #0.2NOMS HealthcareTBH [id number] HealthcareTBH RBC4.42NOMS HealthcareTBH WBC 7.8NOMS HealthcareCLINISYNCNOMS HealthcareXR ABDOMEN 1Von 92-46-2940[place]yq[place], [place] [address] XRay Report Signed Patient: ORION HARPER MR#: [id number] : 1990 Acct:[id number] Age/Sex: 33 / F ADM Date: 11/16/23 Loc: RAD Attending Dr: Madhuri Ortiz M.D. Ordering Physician: Madhuri Ortiz M.D. Date of Service: 11/16/23 Procedure(s): XR abdomen 1V Accession Number(s): [id number] cc: GIOVANI HAGEN ; Madhuri Ortiz M.D. [place] [phone] Patient Name: ORION HARPER MRN: [id number] date: 1990 Sex: F Assigned Patient Location: RAD Current Patient Location: Accession/Order Number: [id number] Exam Date: 11/16/2023 16:15 Report Date: 11/20/2023 [...] urinary tract calculi. Electronically authenticated by: LAURIE CRUZ Date: 11/20/2023 07:57 Dictated By: Laurie Cruz M.D. Signed By: 11/20/23 0800 DD/ 0757 TD/TT: Chief Clinical Officer:TBHRadiology, Radiologist, MD - 11/20/2023 [place] [address] XRay Report Signed Patient: ORION HARPER MR#: [id number] : 1990 Acct:[id number] Age/Sex: 33 / F ADM Date: 11/16/23 Loc: RAD Attending Dr: Madhuri Ortiz M.D. Ordering Physician: Madhuri Ortiz M.D. Date of Service: 11/16/23 Procedure(s): XR abdomen 1V Accession Number(s): [id number] cc: GIOVANI HAGEN ; Madhuri Ortiz M.D. The [place] [id number] Patient Name: ORION HARPER MRN: [id number] date: 1990 Sex: F Assigned Patient Location: [facility] Current Patient Location: Accession/Order Number: [id number] Exam Date: 11/16/2023 16:15 Report Date: 11/20/2023 [...] urinary tract calculi. Electronically authenticated by: LAURIE CRUZ Date: 11/20/2023 07:57 Dictated By: Laurie Cruz M.D. Signed By: 11/20/23 0800 DD/ 0757 TD/TT: Chief Clinical Officer: [facility] HealthcareRadiology Study observation (narrative)[facility] HealthcareXR ABDOMEN 1VOrdered By: Radiologist Radiology on 44-10-1843G[facility]AS [facility] Work Phone: Extra Lavender Tubeon 60-13-3688Emlcn Lavender Tube NormalMerMary Bridge Children's HospitalComment on above:Performed By: #### XLAV, LIVP, LIP #### [facility] [address] [place] [address] Pain[employer]umbling [employer]: Ronald Pearce MDLipaseon 84-61-1194Mdwgft [Catalytic activity/Vol]260 U/ZLtrd26-39OlvlvAcmc Healthcare SystemComment on above:Performed By: #### XLAV, LIVP, LIP #### [facility] [address] [place] [address] Painter [employer]umbling Barrel: Ronald Pearce MDLiver Profileon 46-89-3657Lafqhde [Mass/Vol]3.5 g/dLNormal3.5-5.2[facility] St. Clare HospitalComment on above:Performed By: #### XLJUAN M, LIVP, LIP ####[facility] [address] [place] [address] Lab Director: Milind Juankaline Gcry850 U/LHigh 35-104Acmc Healthcare SystemComhawthorn center on above:Performed By: #### XLAV, LIVP, LIP ####[facility] [address] [place] [address] Lab Director: Ronald Pearce MDALT [Catalytic activity/Vol] 137 U/LHigh5-33Acmc Healthcare SystemComment on above:Performed By: #### XLAV, LIVP, LIP ####[facility] [address] [facility] [place] [address] Lab Director: Ronald Pearce MDAST [Catalytic activity/Vol] 60 U/LHigh<32MerMary Bridge Children's HospitalComment on above:Performed By: #### XLAV, LIVP, LIP ####[facility] [address] [place] [address] Lab Director: Ronald Pearce MDBilirubin [Mass/Vol]1.0 mg/dL Normal0.3-1.2[facility] St[facility] Clare HospitalComhawthorn center on above:Performed By: #### XLAV, LIVP, LIP ####[facility] [address] [place], [place] [address] [address] Lab Director: Jaime Juanirubin, Indirect0.4 mg/dL Normal0.0-1.0Acmc Healthcare SystemComment on above:Performed By: #### XLAV, LIVP, LIP ####[facility] [address] [place], [place] [address] [address] Lab Director: Jaime Juanirubin.indirect [Mass/Vol] 0.6 mg/dLHigh<0.3[facility] St. Clare HospitalComment on above:Performed By: #### XLAV, LIVP, LIP ####[facility] [address] [place] [address] Lab Director: Ronald Pearce MDProtein [Mass/Vol]5.7 g/dL Low6.4-8.3[facility] St. Clare HospitalComment on above:Performed By: #### XLAV, LIVP, LIP ####[facility] [address] [place], [place] [address]ia [facility] [place] [address] Lab Director: Hunter Juan Tubeon 01-96-4695Evoar Lavender TubeNormalMercy St. Clare HospitalComment on above: Performed By: #### JOSÉ BOWMAN ####[facility] [address] [facility] [place] [address] lab Director: BECKI Juan CHOLANGIOGRAM ORon 11-53-7172HP CHOLANGIOGRAM OREXAMINATION: SPOT FLUOROSCOPIC IMAGES 03/23/2023 9:08 am TECHNIQUE: [...] Signed by: Danny Cole MD 03/23/23 Final resultNormalMerMary Bridge Children's HospitalLiver Profileon 68-04-8146Ovphufo [Mass/Vol]3.5 g/dLNormal3.5-5.2[facility] St[address] Clare HospitalComment on above:Performed By: #### GRACIE XLAV ####[facility] [address] [facility] [place] [address] Lab Director: Milind Juankaline Phos 293 U/BNfhh11-717ExuovAcmc Healthcare SystemComment on above:Performed By: #### GRACIE XLJUAN M ####[facility] [address] [facility] [place] [address] lab Director: Ronald Pearce MDALT [Catalytic activity/Vol] 111 U/LHigh5-33MerMary Bridge Children's HospitalComment on above:Performed By: #### GRACIE XLAV ####[facility] [address], [place] [address] Lab Director: Ronald Pearce MDAST [Catalytic activity/Vol]43 U/LHigh<32[address] St[address] Clare HospitalComment on above:Performed By: #### LIVP, XLAV ####[facility] [address], [place] [address] Lab Director: Ronald Pearce MDBilirubin [Mass/Vol]2.6 mg/dL High0.3-1.2Mer[facility] St. Clare HospitalComment on above:Performed By: #### LIVP, XLAV ####[facility] [address] [place], [place] [address], [place] [address] Lab Director: Ronald Pearce MDBilirubin, Indirect0.8 mg/dL Normal0.0-1.0Mer[facility] St. Clare HospitalComment on above:Performed By: #### LIVP, XLAV ####[facility] [address], [place] [address] Lab Director: Jaime Juanirubin.indirect [Mass/Vol]1.8 mg/dLHigh<0.3Mercy St. Clare HospitalComment on above:Performed By: #### LIVP, XLAV ####[facility] [address] [place], [place] [address]ia e.[place], [place] [address] Lab Director: Ronald Pearce MDProtein [Mass/Vol]5.7 g/dLLow 6.4-8.3[facility] St[facility] Clare HospitalComment on above:Performed By: #### LIVP, XLAV ####[facility] [address], [place] [address] Lab Director: MERISSA Juanurgical Pathology Reporton [id number] Pathology Report(NOTE) Path Number: [id number] -- Diagnosis -- A. GALLBLADDER AND CONTENTS, CHOLECYSTECTOMY: Cholelithiasis. Lulú Jaevd M.D. Electronically Signed Out kmg2/03/27/2023 Clinical Information Pre-op Diagnosis: ACUTE PANCREATITIS, UNSPECIFIED COMPLICATED STATUS, UNSPECIFIED TYPE Operative Findings: GALLBLADDER AND CONTENTS Operation Performed: LAPAROSCOPIC CHOLECYSTECTOMY Source of Specimen A: GALLBLADDER AND CONTENTS Gross Description OIRON HARPER GALLBLADDER AND CONTENTS Received in formalin [...] lesions or periductal lymph nodes are identified. Ship Fitter sections 1c. tm SM/tb1:03/24/2023 Microscopic Description Microscopic examination performed. Processing Lab: [place] [id number] Interpretation Performed at [place] [id number] SURGICAL PATHOLOGY CONSULTATION Patient Name: ORION HARPER Med Rec: [id number] [facility] tab ticketbroker [facility] ANATOMIC PATHOLOGY [address] [place] [address]. [place] [id number] NormalK[facility] with Diffon [id number]. Basophil<0.86Wevmxp2.00-0.20MerMary Bridge Children's HospitalComment on above:Performed By: #### CDP, LIP, CMPX #### [facility] [address] [place] [address] Painter Tumbling Barrel: Ronald Pearce MD #### TRIG #### [place] [facility] [address] [place] [address] Painter Tumbling Barrel: Juliet Gordillo.Imm.Granulocyte0.03 k/uLNormal0.00-0.30[facility] on above:Performed By: #### CDP, LIP, CMPX #### [facility] [address] [place] [address] Painter Tumbling Barrel: Ronald Pearce MD #### TRIG #### [address] [address] Painter Tumbling Barrel: Juliet Gordillo.Neutrophil (Seg)6.89 k/uLNormal1.50-8.10 [facility] on above:Performed By: #### CDP, LIP, CMPX #### [facility] [address] [place] [address] Pain[employer] Tumbling Barrel: Ronald Pearce MD #### TRIG #### [address] [address] Painter Tumbling Barrel: Elio Marley MDBasophils/100 WBC (Bld)0 %Normal0-2[facility] HospitalComhaw[facility] on above:Performed By: #### CDP, LIP, CMPX #### [facility] [address] [place] [address] Pain[employer] Tumbling Barrel: Ronald Pearce MD #### TRIG #### [address] [address] Painter Tumbling Barrel: Elio Marley MDEosinophils (Bld) [#/Vol]0.07 10*3/uLNormal 0.00-0.44[facility] on above:Performed By: #### CDP, LIP, CMPX #### [facility] [address] [place] [address] Painter Tumbling Barrel: Ronald Pearce MD #### TRIG #### [address] [address] Painter Tumbling Barrel: Elio Marley MDEosinophils/100 WBC (Bld)1 %Normal1-4[facility] on above:Performed By: #### CDP, LIP, CMPX #### [facility] [address] [place] [address] Painter Tumbling Barrel: Ronald Pearce MD #### TRIG #### [address] [address] Painter Tumbling Barrel: Elio Marley MDErythrocyte distribution width (RBC) [Ratio]12.2 %Qrxzxd13.8-14.4[facility] on above:Performed By: #### CDP, LIP, CMPX #### [facility] [address] [place] [address] Painter Tumbling Barrel: Ronald Pearce MD #### TRIG #### [address] [address] Painter Tumbling Barrel: Elio Marley MDHematocrit (Bld) [Volume fraction]36.9 %Normal 36.3-47.1MK[facility] on above:Performed By: #### CDP, LIP, CMPX #### [facility] [address] [place] [address] Painter Tumbling Barrel: Ronald Pearce MD #### TRIG #### [address] [address] Painter Tumbling Barrel: Elio Marley MDHemoglobin (Bld) [Mass/Vol]12.1 g/dLNormal 11.9-15.1MKettering [facility] on above:Performed By: #### CDP, LIP, CMPX #### [facility] [address] [place] [address] Painter Tumbling Barrel: Ronald Pearce MD #### TRIG #### [address] [address] Painter Tumbling Barrel: lEio Marley MDImmature granulocytes/100 WBC (Bld)0 %Normal0 [facility] on above:Performed By: #### CDP, LIP, CMPX #### [facility] [address] [place] [address] Painter Tumbling Barrel: Ronald Pearce MD #### TRIG #### [address] [address] Painter Tumbling Barrel: Elio Marley MDLymphocytes (Bld) [#/Vol]1.62 10*3/uLNormal 1.10-3.70[facility] SystemComment on above:Performed By: #### CDP, LIP, CMPX #### [facility] [address] [place] [address] Painter Tumbling Barrel: Ronald Pearce MD #### TRIG #### [address] [address] Painter Tumbling Barrel: Elio Marley MDLymphocytes/100 WBC (Bld)18 %Hqr29-16YrbobAcmc Healthcare SystemComhawthorn center on above:Performed By: #### CDP, LIP, CMPX #### [facility] [address] [place] [address] Painter Tumbling Barrel: Ronald Pearce MD #### TRIG #### [address] [address] Painter Tumbling Barrel: HIREN GordilloCH (RBC) [Entitic mass]32.5 byVaefdb25.2-33.5 [facility] on above:Performed By: #### CDP, LIP, CMPX #### [facility] [address] [place] [address] Painter Tumbling Barrel: Ronald Pearce MD #### TRIG #### [address] [address] Painter Tumbling Barrel: Elio Marley MDMCHC (RBC) [Mass/Vol]32.8 g/rBPicgiw70.4-34.8 [facility] on above:Performed By: #### CDP, LIP, CMPX #### [facility] [address] [place] [address] Painter Tumbling Barrel: Ronald Pearce MD #### TRIG #### [address] [address] Painter Tumbling Barrel: Elio Marley MDMCV (RBC) [Entitic vol]99.2 dOIpxtah08.6-102.9 [facility] on above:Performed By: #### CDP, LIP, CMPX #### [facility] [address] [place] [address] Painter Tumbling Barrel: Ronald Pearce MD #### TRIG #### [address] [address] Painter Tumbling Barrel: Elio Marley MDMonocytes (Bld) [#/Vol]0.57 10*3/uLNormal 0.10-1.20[facility] on above:Performed By: #### CDP, LIP, CMPX #### [facility] [address] [place] [address] Painter Tumbling Barrel: Ronald Pearce MD #### TRIG #### [address] [address] Painter Tumbling Barrel: Elio Marley MDMonocytes/100 WBC (Bld)6 %Normal3-12[facility] on above:Performed By: #### CDP, LIP, CMPX #### [facility] [address] [place] [address] Painter Tumbling Barrel: Ronald Pearce MD #### TRIG #### [place] [address] [place] [address] Painter Tumbling Barrel: Elio Marley MDNeutrophil (Seg)75 %Yvqi54-82NirbxSelect Medical Specialty [facility] on above:Performed By: #### CDP, LIP, CMPX #### [facility] [address] [place] [address] Painter Tumbling Barrel: Ronald Pearce MD #### TRIG #### [address] [address] Painter Tumbling Barrel: Elio Marley MDNRBC Automated0.0 per 100 WBCNormal0.0[facility] on above:Performed By: #### CDP, LIP, CMPX #### [facility] [address] [place] [address] Painter Tumbling Barrel: Ronald Pearce MD #### TRIG #### [address] [address] Painter Tumbling Barrel: Vega Gordillotejonathan mean volume (Bld) [Entitic vol]10.7 fL Normal8.1-13.5[facility] on above:Performed By: #### CDP, LIP, CMPX #### [facility] [address] [place] [address] Painter Tumbling Barrel: Ronald Pearce MD #### TRIG #### [address] [address] Painter Tumbling Barrel: DULCE Gordillolatelets (Bld) [#/Vol]188 10*3/yPBpneio696-369 [facility] on above:Performed By: #### CDP, LIP, CMPX #### [facility] [address] [place] [address] Painter Tumbling Barrel: Ronald Pearce MD #### TRIG #### [address] [address] Painter Tumbling Barrel: SHERRIE Gordillo (d) [#/Vol]3.72 10*6/uLLow3.95-5.11[facility] HospitalComhaw[facility] center on above:Performed By: #### CDP, LIP, CMPX #### [facility] [address] [place] [address] Painter Tumbling Barrel: Ronald Pearce MD #### TRIG #### [address] [address] Painter Tumbling Barrel: Elio Marley MDROCHESTER GENER[facility] (Bld) [#/Vol]9.2 10*3/uLNormal3.5-11.3[facility] HospitalComhawthorn center on above:Performed By: #### CDP, LIP, CMPX #### [facility] [address] [place] [address] Painter Tumbling Barrel: Ronald Pearce MD #### TRIG #### [address] [address] Painter Tumbling Barrel: STONEY Goridllolifepoint hospitals Metabolic Pr/rfx MGon 54-29-0618Zvghxfj [Mass/Vol]3.5 g/dLNormal3.5-5.2[facility] HospitalComhaw[facility]orn center on above:Performed By: #### CDP, LIP, CMPX #### [facility] [address] [place] [address] Painter Tumbling Barrel: Ronald Pearce MD #### TRIG #### [address] [address] Painter Tumbling Barrel: Selwyn Gordillo Njwm292 U/WNway62-847TfoxhSelect Medical Specialty Hospital [facility] on above:Performed By: #### CDP, LIP, CMPX #### [facility] [address] [place] [address] Painter Tumbling Barrel: Ronald Pearce MD #### TRIG #### [address] [address] Painter Tumbling Barrel: Elio Marley MDALT [Catalytic activity/Vol]131 U/LHigh5-33[facility] on above:Performed By: #### CDP, LIP, CMPX #### [facility] [address] [place] [address] Painter Tumbling Barrel: Ronald Pearce MD #### TRIG #### [address] [address] Painter Tumbling Barrel: Stephen Gordillo gap [Moles/Vol]11 mmol/LNormal9-17[facility] on above:Performed By: #### CDP, LIP, CMPX #### [facility] [address] [place] [address] Painter Tumbling Barrel: Ronald Pearce MD #### TRIG #### [address] [address] Painter Tumbling Barrel: Elio Marley MDAST [Catalytic activity/Vol]34 U/LHigh<32[facility] on above:Performed By: #### CDP, LIP, CMPX #### [facility] [address] [place] [address] Painter Tumbling Barrel: Ronald Pearce MD #### TRIG #### [address] [address] Painter Tumbling Barrel: Elio Marley MDBilirubin [Mass/Vol]1.9 mg/dLHigh0.3-1.2MTri-State Memorial HospitalComment on above:Performed By: #### CDP, LIP, CMPX #### [facility] [address] [place] [address] Painter Tumbling Barrel: Ronald Pearce MD #### TRIG #### [address] [address] Painter Tumbling Barrel: Elio Marley MDBUN/CRE Mjcca53Ejopyk2-86PbdxrAcmc Healthcare System Comment on above:Performed By: #### CDP, LIP, CMPX #### [facility] [address] [place] [address] Painter Tumbling Barrel: Ronald Pearce MD #### TRIG #### [address] [address] Painter Tumbling Barrel: Elio Marley MDCalcium [Mass/Vol]8.1 mg/dLLow8.6-10.4[facility] SystemCom[facility] on above:Performed By: #### CDP, LIP, CMPX #### [facility] [address] [place] [address] Painter Tumbling Barrel: Ronald Pearce MD #### TRIG #### [address] [address] Painter Tumbling Barrel: Elio Marley MDChloride [Moles/Vol]105 mmol/PFfnzga24-630QlklrAcmc Healthcare SystemComment on above:Performed By: #### CDP, LIP, CMPX #### [facility] [address] [place] [address] Painter Tumbling Barrel: Ronald Pearce MD #### TRIG #### [address] [address] Painter Tumbling Barrel: STONEY GordilloO2 [Moles/Vol]21 mmol/TUodmvw05-93ZhtxsSelect Medical Specialty Hospital [facility] on above:Performed By: #### CDP, LIP, CMPX #### [facility] [address] [place] [address] Painter Tumbling Barrel: Ronald Pearce MD #### TRIG #### [address] [address] Painter Tumbling Barrel: STONEY Gordilloreatinine [Mass/Vol]0.6 mg/dLNormal0.5-0.9[facility] on above:Performed By: #### CDP, LIP, CMPX #### [facility] [address] [place] [address] Painter Tumbling Barrel: Ronald Pearce MD #### TRIG #### [address] [address] Painter Tumbling Barrel: Elio Marley MDGFR/1.73 sq M.predicted among non-blacks MDRD (S/P/Bld) [Vol rate/Area]mL/min/{1.73_m2}Normal>60[facility] SystemCom[facility]orn center on above:Result Comment: These results are not intended for [...] or following therapy that affects renal tubular secretion.Performed By: #### CDP, LIP, CMPX #### [facility] [address] [place] [address] Painter Tumbling Barrel: Ronald Pearce MD #### TRIG #### [facility] [place] [address] Painter Tumbling Barrel: Elio Marley MDGlucose [Mass/Vol]75 mg/cCTkyteu05-44AimyvTri-State Memorial HospitalComhawthorn center on above:Performed By: #### CDP, LIP, CMPX #### [facility] [address] [place] [address] Painter Tumbling Barrel: Ronald Pearce MD #### TRIG #### [address] [address] Painter Tumbling Barrel: DULCE Gordillootassium [Moles/Vol]4.0 mmol/LNormal3.7-5.3 [facility] on above:Performed By: #### CDP, LIP, CMPX #### [facility] [address] [place] [address] Painter Tumbling Barrel: Ronald Pearce MD #### TRIG #### [address] [address] Painter Tumbling Barrel: Elio Marley MDProtein [Mass/Vol]5.7 g/dLLow6.4-8.3MTri-State Memorial HospitalComhawthorn center on above:Performed By: #### CDP, LIP, CMPX #### [facility] [address] [place] [address] Painter Tumbling Barrel: Ronald Pearce MD #### TRIG #### [address] [address] Painter Tumbling Barrel: Elio Marley MDSodium [Moles/Vol]137 mmol/DNzzznl279-611QlxbmSelect Medical Specialty Hospital [facility] on above:Performed By: #### CDP, LIP, CMPX #### [facility] [address] [place] [address] Painter Tumbling Barrel: Ronald Pearce MD #### TRIG #### [address] [place] [address] Painter Tumbling Barrel: Elio Marley MDUrea nitrogen [Mass/Vol]10 mg/dLNormal6-20[facility] SystemComment on above:Performed By: #### CDP, LIP, CMPX #### [facility] [address] [place] [address] Painter Tumbling Barrel: Ronald Pearce MD #### TRIG #### [address] [address] Painter Tumbling Barrel: Elio Marley MDK (Potassium)on 75-69-5502Skroihqcb [Moles/Vol] 3.8 mmol/LNormal3.7-5.3[facility] Clare HospitalComment on above:Performed By: #### K #### [facility] [address] [place] [address] Painter Tumbling Barrel: Ronald Pearce MDLipaseon 50-89-0558Qeyywq [Catalytic activity/Vol]198 U/NAonx59-59PqnygAcmc Healthcare SystemComhawthorn center on above:Performed By: #### CDP, LIP, CMPX #### [facility] [address] [place] [address] Painter Tumbling Barrel: Ronald Pearce MD #### TRIG #### [address] [address] Painter Tumbling Barrel: HIREN GordilloRI ABDOMEN WO CONTRAST MRCPon [id number] ABDOMEN WO CONTRAST MRCPEXAMINATION: MRI OF THE ABDOMEN WITHOUT CONTRAST AND [...] Signed by: Daniel Hooker MD 03/22/23 Final resultNormalMerMary Bridge Children's HospitalTriglycerideson 30-46-3586Ctwxvnogithm [Mass/Vol]102 mg/dLNormal0-149[facility] Healthcare SystemComment on above:Result Comment: Triglyceride Guidelines: <150 Desirable 150-199 Borderline 200-499 High >499 Very high Based on AHA Guidelines for fasting triglyceride, January 2012.Performed By: #### CDP, LIP, CMPX #### [facility] [address] [place] [address] Painter Tumbling Barrel: Ronald Pearce MD #### TRIG #### [address] [place], [place] [id number] Painter Tumbling Barrel: Mackenzie Gordillo 90-37-2375ATWPPuqjjpwwq (FVPRAGonzalez) ORION HARPER ([id number]) 1990 F Date Time Provider Department 03/20/23 [...] 11/02/2022 Encounter Status:Closed by CHARLETTE CAMPUZANO on 03/20/23[facility] Ferritin [Mass/volume] in Serum or PlasmaOrdered By: Erwin Hylton on 10-26-2022 Ferritin [Mass/Vol]106.5 ng/mL11.0-306.8[facility] GASTRIC EMPTYING SOLIDon 37-17-9395Gesphbnvj ClinicNM Stomach Views for gastric emptying solid phase W radionuclide Izabella 54-90-5093PJXTZYNFKY: EVIDENCE OF DELAYED RATE OF GASTRIC EMPTYING OF SOLID MEAL. ABNORMAL STUDY: 36-50% RETENTION AT 4 HOURS IS CONSISTENT WITH SEVERE GASTROPARESIS. Chief Clinical Officer: PSCB Transcribe Date/Time: Sep 12 2022 3:02P Dictated by : LUZ MARINA VÁZQUEZ MD This examination was interpreted and the report reviewed and electronically signed by: LUZ MARINA VÁZQUEZ MD on Sep 12 2022 3:05PM [facility] RADIOLOGY* * *Final Report* * * DATE OF EXAM: Sep 12 2022 2:44PM [facility] [place] GASTRIC [facility]MPTYING SOLID [...] emptying is <30% retention at 1hr). LISA RADIOLOGYProvider, [facility] [place] - 09/12/2022 * * *Final Report* * * DATE OF EXAM: Sep 12 2022 2:44PM [facility] [place] GASTRIC EMPTYING SOLID [...] 4 HOURS IS CONSISTENT WITH SEVERE GASTROPARESIS. Chief Clinical Officer: PSCB Transcribe Date/Time: Sep 12 2022 3:02P Dictated by : LUZ MARINA VÁZQUEZ MD This examination was interpreted and the report reviewed and electronically signed by: LUZ MARINA VÁZQUEZ MD on Sep 12 2022 3:05PM [facility] (narrative)[facility] Stomach Views for gastric emptying solid phase W radionuclide POOrdered By: [facility] Provider on 65-82-1008Evxtqqyaf ClinicEGD Study observation Narrativeon 70-19-1209Uqfqa [facility] G[facility] End[facility] Patient Name: Orion Harper Procedure Date: 08/31/2022 2:51 PM Date of : 1990 Admit Type: Outpatient Age: 31 Room: [facility] 2 Gender: Female 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 Override Attending MD: Carol Winn MD Procedure: [...] verified by the physician, the nurse, the energy project engineer and the electronics maintenance technician in the procedure room at 14:52 [...] performed in the gastric (more content not included)...[facility] HospitalURGICAL PATHOLOGYOrdered By: Padilla Jasmine on [id number] ReportSurgical Pathology Report Case: [id number] Authorizing Provider: Carol Winn MD Collected: 08/31/2022 03:04 PM Ordering Location: Ambulatory Surgery Received: 08/31/2022 09:20 PM Pathologist: Padilla Jasmine MD Specimens: A) - SMALL INTESTINE BIOPSY, r/o celiac B) - ANTRUM (STOMACH) BIOPSY, r/o hpylori C) - STOMACH BIOPSY, gastric body r/o hpylori [facility] Work Phone: Diagnosis Comment v2iglVMmSYHebLDiFZCuYSdupcUuWKXeqCPtE9QaavtcYXnsEY0fZV4lgNcosVSlnFPgBHUhCjDgm3bx f415jYHad8ziCCKVcjio hUu9jOovB25kr5K8HzehG96xeNAgVRZ0KPAiQODxpDCiFCGwESY8AFUqwIFsE9oyVWVyCV7wgjvaFHbq DAbgHSIxyNP8NHHiqXJe R2RjSPEfRFtxAWDkkht6PcErTz5kdHBoxCmpOUpwKTQnVZAyEOclDYMzPvAsHElcag8kQ44thBUwGIod wJxrNSJui33eb6xxs3Zh sI63ANK6SXLxaKouiTQyCOHuzGh3NQO1dEPbWRkmdVdquAO6P1q8ZGdyvFCmJAWlyGuvxClqkJBzoK6a sA4vrZSex4irJvFJhDQh BTAbvB9puC9qmkSielRnwj36HUHfgPvfSYw8HXYqLQWkSdkfDgOarMLpPVZqfiBuICjrD49ux8gzCYCd rDeoxzYks380eYKlhY0h gRNsKDClPTKguhPfCMNhiTnyMhSdwXR2DIeiNJJbjLR0uMXoyoEbNDBjOCOeRn9bdTcqRYOGP9AASONv UN5qRBibIlFkkFtxeKPu D8AvoKBsZB33HDUqfKcpNYemhiQdyFSyvblmUBFsrUNnVbDesOKpJJK0bP2omInaLD0jflghb4BbBIOs EvMlX55pihJsNCEiTKnotAacd8Fam2lkR6vyh5Q0MZeecv9ywGBadN==Vwpvjxfdg Clinic Work Phone: FINAL DIAGNOSIS w2nxcYZjRWXpyFFlEUMlLVpidqRbLQMdjDJoY1HnykweQCmpVV5aJL1cjMlwiETurDSvIHIfCxOwx9ok e633bDJff7svRZQQsglw tCf2pNtsN32li3E0SrrrS93bwDIfAFA0EYNmJCCnzMFzYXAdVLP8YCEbnCNtA3iwXZVuQX3pvcvxJFof VXdvBIEqcZL8VLKglPBs E6JeHXEgYUbdMKIenua7BxTrFv1hqVJjtNeeWHduJUYzQEXjWJfoWPHlEeOsXG5bHLVvLRocKLuuwOPl lOphEXrvLrsqaWL1Vqul vW6bLP8OsWTmeGQygkUea3WbjiVtUJ93L43qOJD0nOVoVO3kpr7crMX8zGnwe0GmWIEgH9pisKPokPTp QHDqqwZyk0qrZ3l2M3Cj kUGikEQvgmShYBNyYPOgezGdvhAlHMNbmUWqDEuqOVvnlGmovNooO8p1WHVrmZarDZnzdN4oXCNhQXIP aK0pXQUqIBUwyrWtkW5z ZONxg9FxsRehzXqeWSNsHHJqnPRsJnHprAUvGUM0nV3bwUFcg7JbA9mepZEgAUVvdi7keCDlRBN3lFZo FUhsq0WgyRTmc1qapR9b QD2Dt6XhyFw3HVMvm8NeGHXpkQBrQbJzmLPbLCV0oU1gxPLhkivnwishxUIhi51ykj49oBriPDCptIYm ehbuU6maaO0yFNbcklSd Tj6qSTI3a76xD4qsYRMmEUlpMPPlt6FrdGjnmGvoQLKgZJRumFXnVmAplXEnIJW1hC9dnDVgv4TaS3pq uDVeTGMrkc6zkISzCOE7 sNYxEYuhy5RbvITzl2vouF5mAA6Ea0PpnPa9WJIdd2CeNTYefOWuAoSuuMYhBHH1vU8ciPTxfauwwzqi bJHwc59twi59wYnsHRKenCKrwbuqD7htEYS6Cndgegsda Clinic Work Phone: Gross Description n2greEErQSMxqWJPMMZcNKYgHK0gyAxgnRi9cLntXKTthwG1sMLoMJrxb3mqUXY0q6avprRYYajaKLVg HXwhTDXtqrntTnX3KKfv TXXsibqwUZj3ERddXVKzcEO9WWAfiUWaE8PfAPBfVJ1ihea2JNI0EMtpUZMrVfR7OPUgUcNgQhxyUEz1 GAVahrL8Oxr6XHZrHSAr zZMtk9C2RPwbjurhSRAewPLhY555RJyty7BwhOSuPWcbjENdTQQXNzolMiomqDzuk2AxkROcWBwsFMHm AIFjNGnrziokZAe1BIHr DQvehYNfNL6ocMexTrfobGdgg9FnmPMmCGixSBGdSFTmXWyiKWFpSX3KEwRuBMSoCSS4UGptTtW1USo0 OSBPVlMgIiAgMzExNDIy HgQuZMs2BXc9ENfFWuEqHCHpPlKpBJJxQaQ5KYpdChOyNSRdAfPpIPBrKKIzGCwkMKotbRKcXH6srXab bGFpbiBBLiBTTUFMTCBJ KxXLS9CMOlYfClrPWVOGKHUqezOHPltrlDywMxAreFUfAcKjYIufwDWbfKIiKCtsupImjgjsXYZCPacw oCNuhXsmqsQwPTXbO8En xxVbIJzeCXYcsq7nnZktNBUmUDIqvRc5hXPhCJVgiJQeDPTgh1TuiHZgZACzw5Q4DSFzg2O4VGGgX6ld CKphqMuuPpF0ooUxLgZv vLGrNtQlqTAbXzRrN15eMCXwwGIjyAnbt1UipTf8hRZfXWedCN1iEWYcWVEwYGQ0LM7elEegPPPDYkqc cGljTmVzdERvYzBcdjB7 QFCaiBOoCYF1IC7tHHGwvfhtYJTkTBOrZRF8GVhtsP25uLNoJOFsQFMetZNwnEzlrIXbaxAJYbxmOgdx mDvbq9GskSZyLWubXGEv UOKxOVvvQMMgVF8QGnVpPNNcVVB9NLdvAsF0UYf9ZKVLUmSmQnKoKuCjLXDgXiBkWCk4USh5MFpXDyEl SDNjSaAiFWY4BTO6HEsm NhWdFORzTwBwIKJeQDPcYVxfCRbvxOXsZJ4xsXohyUSabexjwdY0EJJlAJjfRZBvRFRMKZMVBDIfU6EH TUFDSCkgQklPUFNZXHBh hqTPQsqcyHgfSeTxbQCkPvHzXSxdmIZpnKGvGZkrlzLaotxfLRRZUxsxwHEqnVszliIuMABkM5UxzeKz NYioCZTsrc5tfUcfDJVr UBKncSr0gMEeMTXchCDtPVHjy6HutVDnMPOgf6W9QOEwk0D9DTDsV1gwTZhlnQfrGcQ2mgTxIuHfrBZu PbQdgXRuRkVnC05uCAPk hPBqqFegy7CztFs9aDOcJWntUG8fAVFdITZySEO7BO1jcRuySCBERvpsoLyrDlTlfPMzYmScyuO2SVYz qATpBCP9JF3tPXZevgve PABsQYMdPAR0OMuygW31dPVoMAFzTPOwyTRkzDzwtRScjrJFXfadNmxmsDdse1XjpAXiNGuyCDIbAQKb KMkmFPCuZF0GLnQdDBXn XLA5GEjpQrK2PSj0CZXOSsJzXqNfEqXqGURhMdFsADl2BCl8URaXPiGnXYTuNtQdSEw6JaA5JObnQwGa XHQgMiBcXGYgQXJpYWwg ASztdZYlFS2kqTahiSCuiatkulO9EXQjDGmdPHRaDVYNX80KW3yeQyhMCDQJUOEzbfZRUmsppAmxTiJj dERvYzEgDQpcbHRycGFy TOwupxDuofuwIWSMYgufvKRwjVifweItBCMvJ8AkuhOqOVwhMXZiuh9mfPqpOBHbQAZtzZp4wZRvBONq fKEuYVPmn3YycQLhBATk j1C1KUHqt5J8QMZaK0elWDmtkVvdJxP7wbAuCqalcHPdCnAftZLgKcXmH25sQULuqHYcvDqnk9KjvBb5 bHMzFOndZR5gZDXsRVDk CAU6KR7wcOtiPEVaNTSivgBIEdbQFZ7xnKIoVHcyCaClRtMxItWfGZXOUJ9uzBBeGX6VSUOyzmHWGozf m8LbFIY7PN3ldeX1xZ7x ETNqjqSvio0uACTwzAKQgGC1BZsfifJbB4pfpvrlGPH2QGOfYZF2G8zuSPTNfuScNJUWmNK6UDyefcZm OK7WLNX3QFf9WLMewmPL QaurmFhiQaJlgRPgHtLfxfS6DUEgaYQxWGI8CP5uKEHaybblEUQbPXLxEGO0XKpfqY09jUQwJDQeDOMx cGFyfVxwbGFpbiANClxz yO2nMiFkw8zhgCc3DNKEMeqcmHQbmipffrA7RPFbr6yqdSxor8TwuZEyID1ryJaulV0wUdUtImYZHe9= [facility] Work Phone: [employer] [facility] s4jrxTAxBHHodSTkIbBwJOLoKWLfg7hjJHZktWSpZjZqMeWyLlOkEkzpbYDrIYTxZaXkx1rlr990kPVy o7mgFELjPnM4bILvPHHq jAWmE555PGDhRGfbn6ivb3WuOAFrwFDbh1R0LEERxyigiDu4fXlvC82uq0W6RdxgP8dbFIUaEKDzO2Bx YJ1mQTJzTuy5YGC4BRD8 AEZlDMJcE2GjLF6hYDAzkHHxAJj7m9tcjRafXLYjIMF6b0fcYQnfhnVjRK5yqd1itQm5v1davyBmZSNj KGNvtGTKAHOkK5HopPay Ru7mgQe5tVceNezdLWD5Phx8OC7yxh93nnw8uNgiACVpqiccTaM8HUgoRMVscpwuQGg1HGepFMJpwJR0 XGDsvJLiL3RjZKrhWL6g dsc7IZL0YHhaCYNkQaN6WIEgtXLkVWAodIqyKDkqp537BMJ6UnKwKI0wX1Cof6P1yN5zhQTrIAVwuIZu YzWyOLLxfz2dhQSfILum h9BwZBN4psC9bFMcpKMcDUDkOV31Tforw1UcTzxat0IdP37kfAX6QDtrl0ajGQ0aJkV2omYsEUjei2yj dR9fIbW3MDpyAI6pLS7s UQIbvB9snhdzGXEyVmIiygpgOVCyrUjgyjFzPz0etBtbNQA2EFevP7ohxA5xMbW5KSoxN2qjyU2cEDg8 ZVyosHR9FNWffX2sTE0z pitww1iyBLslGEwpMDGulcI6qsYgTMNmzJUmY9WykV3fFORmKK8vkuyaw5hlZLK1MCaeFZHoMEV5VnOl BTQre4Moafr6SmMkx3Ga hCPkNNvjJ14ws927TBGhroTyS5hauEUwuekfvXMgqbvyZLpgthC5DBAkRXYyRCwkQQIsAGMaNtUceMDz ZzEwMzNcaGljaFxmMVxk GmBuMZOtSYhfM2puZnRdTrFeOpGYaXJepm7oyMvfJSgahIQvqWDvoGH1aH0tOHPcilOtwg1zSGUudLOY xOE3ZFnoelHkR4nteydp OIT7KNMxGWW1L6frPDLArmIvGLDpOASsfHMuYVWLTDE2BXQ1RCBaSHEETSDwTES1NJU5DTYvVKKpwHNz XHBhclxwYXJkXHBsYWlu APWhORVcMbVshTaibR0bWcXoVzLoOuyhKC7cGRTmF9rrbMBpBLOjWJHtN2svSzXfmN3fqPpeLZzkSkYo ZnMyMlxsdHJjaCBMYWJv djS9a6P8NRukqMAijobcQDqgmfKjJUwxkpojQWFfWZypQ3stWaJyFLQhpFneUGmbi3QgUQYsQZPbXyKs VJvqGTF3i4I0AFwxfJRmqiLKKlWLLP4iuORrleukRY7KYhjcBMQ6[facility] Work Phone: [facility] Work Phone: EGD Study observation Narrativeon 45-07-0438Qlysunckg Study observation (narrative)[facility] CenterCITRATE URINE 24HRon 07-11-2022 Citric Acid, U, 88dp701 mg/24 feMpeqyf026-1676GvgAvita Health SystemComment on above:Result Comment: This test was developed and its performance characteristics determined by [facility]. It has not been cleared or approved by the Food and Drug Administration.Performed By: #### ALPHPHN #### [facility] [address] [place] [address] Dr. Li NagelCitric Acid, Ilqds825 mg/LNormalUndefinedAvita Health System Comment on above:Performed By: #### ALPHPHN #### [facility] [address] [address] [address] Li NagelOXALATE 24HR URINEon 39-32-6664Uuvkkioe, Urine19 mg/LNormal UndefinedThe [facility] HospitalComment on above:Performed By: #### OX24HR #### [facility] [address] [place] [address] Dr. Li NagelOxalates, Urine 24hr19 mg/24 hrNormal4-31The [facility] Comment on above:Performed By: #### OX24HR #### [facility] [address] [place] [address] Dr. Li NagelMAGNESIUM 24HR URINEon 67-56-0212Quklgucop 24hr Urine45.0 mg/24 rpDjbblu94.0-293.0The [facility] HospitalComment on above:Performed By: #### IMMUN G #### [facility] [address] [place] [address] Dr. Li NagelMagnesium UR4.5 mg/dLNormalNot Estab.The [facility] HospitalComment on above:Performed By: #### IMMUN G #### [facility] [address] [place] [address] Dr. Li NagelPHOSPHORUS 24HR URINEon 48-49-8411Nluaiemxnu, Urine51.4 mg/dL NormalNot Estab.The [facility] HospitalComment on above:Performed By: #### PHOS 24 #### [facility] [address] [place] [address] Dr. Li NagelPhosphorus, Urine 28dv892 mg/24 yrAlzidb455-8535Rsl [facility] HospitalComment on above:Performed By: #### PHOS 24 #### [facility] [address] [place] [address] Dr. Li NagelURIC ACID 24 HR URINEon 76-30-0067Uhwe Acid, Urine64.0 mg/dL NormalNot Estab.The [facility] HospitalComhawthorn center on above:Performed By: #### ALPHPHN #### [facility] [address] [place] [address] Dr. Li NagelUric Acid, Urine 67nq224.0 mg/24 upCrrhpd806.7-902.1The [facility] HospitalComment on above:Performed By: #### ALPHPHN #### [facility] [address] [address] [address] Li NagelCALCIUM 24 HR URINEon 02-83-6752JWDS, 24 HR UR155.0 mg/24 hr Eixhfm373.0-300.0The [facility] HospitalComment on above:Performed By: #### IMMUN G #### [facility] [address] [place] [address] Dr. Li Ingram DRTCXNP37.5 mg/dLNormal5.1-21.0The [facility] HospitalComment on above:Performed By: #### IMMUN G #### [facility] [address] [place] [address] Dr. Li Ingram TOT KHE9185 ml/24 HRNormalThe [facility] HospitalComment on above:Performed By: #### IMMUN G #### [facility] [address] [place] [address] Dr. Li NagelPerformed By: #### ALPHPHN #### [facility] [address] [place] [address] Dr. Li NagelCREA 24 HR URINEon 54-93-7356IQUS, 24 HR OY9663.80 mg/24 hr Critically jceq815.00-1,800.00The [facility] Hospitalment on above:Performed By: #### ALPHPHN #### [facility] [address] [place] [address] Dr. Li Bowling HYEFK269.18 mg/pDPsilvw55.00-300.00The [facility] Comment on above:Performed By: #### ALPHPHN #### [facility] [address] [place] [address] Dr. Li NagelPTH INTACTon 42-97-5347PJF, Pxruzc78 pg/nZSbxwfg01-97Rez [facility] HospitalComment on above:Performed By: #### HEPACUT #### [facility] [address] [place] [address] Dr. Li NagelSODIUM 24 HR URINEon 10-08-4833SV, 24 HR UR149 mmol/24 hrNormal 40-220The [facility] on above:Performed By: #### ALPHPHN #### [facility] [address] [place] [address] Dr. Li Méndezdium (U) [Moles/Vol]149 mmol/LCritically xtyi56-42Wuj [facility] on above:Performed By: #### ALPHPHN #### [facility] [address] [place] [address] Dr. Li Lema 37-68-5258Jnww nitrogen [Mass/Vol]11.0 mg/dLNormal7.0-18.0 The [facility] on above:Performed By: #### BUN, URIC, CA, K, NA, CL, CO2, CREA #### [facility] [address] [place] [address] Dr. Li NagelCALCIUMdevon 41-65-4955Tlqklcd [Mass/Vol]9.0 mg/dLNormal8.5-10.1The [facility] on above:Performed By: #### BUN, URIC, CA, K, NA, CL, CO2, CREA #### [facility] [address] [place] [address] Dr. Li NagelCHLORIDEdevon 32-72-9899Wefsfhff [Moles/Vol]107 mmol/ANujqmd28-976 The [facility] on above:Performed By: #### IMMUN G #### [facility] [address] [place] [address] Dr. Li NagelCO2on 65-79-5837TU7 [Moles/Vol]29.2 mmol/VDoiltl83.0-32.0The [facility] on above:Performed By: #### IMMUN G #### [facility] [address] [place] [address] Dr. Li NagelCREATININEdevon 84-61-6209Twiuqphqyw [Mass/Vol]0.97 mg/dLNormal 0.55-1.02The [facility] on above:Performed By: #### BUN, URIC, CA, K, NA, CL, CO2, CREA #### [facility] [address] [place] [address] Dr. Li McdonaldGFR-AF NIGERIEN>60Normal>=60The [facility] HospitalComment on above:Performed By: #### BUN, URIC, CA, K, NA, CL, CO2, CREA #### [facility] [address] [place] [address] Dr. Li McdonaldGFR-NON AF NIGERIEN>60Normal>=60The [facility] HospitalComment on above:Performed By: #### BUN, URIC, CA, K, NA, CL, CO2, CREA #### [facility] [address] [place] [address] Dr. Li NagelNAdevon 96-05-2380Qmzjbp [Moles/Vol]143 mmol/KTyghtj529-751Lvw [facility] HospitalComment on above:Performed By: #### IMMUN G #### [facility] [address] [place] [address] Dr. Li AtkinsonASSIUMon 18-37-1022Yxmhadtpb [Moles/Vol]3.6 mmol/LNormal 3.5-5.1The [facility] HospitalComment on above:Performed By: #### IMMUN G #### [facility] [address] [place] [address] Dr. Li NagelURIC ACID SERUMon 06-52-9733Idgtn [Mass/Vol]4.7 mg/dLNormal 2.6-6.0The [facility] HospitalComment on above:Performed By: #### BUN, URIC, CA, K, NA, CL, CO2, CREA #### [facility] [address] [place] [address] Dr. Li NagelSUAroldoGICMAURO PATHOLOGYOrdered By: Karan Nieto on 51-22-2837Cqvl ReportSurgical Pathology Report Case: [id number] Authorizing Provider: Carol iWnn MD Collected: 06/30/2022 11:43 AM Ordering Location: Ambulatory Surgery Received: 06/30/2022 10:42 PM Pathologist: Karan Nieto MD Specimens: A) - DUODENUM BIOPSY, r/o celiac B) - STOMACH BIOPSY, r/o H pylori [facility] Work Phone: Diagnosis Comment r1metVFiFNMghKAoNHLhTOukvrYgLWYhmDIiW4QdjqbpHOzfZX4wBG1fpZnqoBHtvPMsZKUiTwQwn2wp q844iEZgc5pwFGVYmlon kZd5gSvoX58sz7M4NypdK88wjJIbHJK5ZZHqVZRotYUuXIYaXRG5UBBesFTnC5xaCOPnNR0iebriARdg XUsdEARbgOD3LPWauDKj D8VrMGUfIMyfVVRnqwf4HuPuHj9zwZRtjAdkSRgiFIUlHFNdQUmoRSZfSiKeOD6aAD8snsJra8TyWXne dHJhZXBpdGhlbGlhbCBs uR7aaI8viPFhjwidbA5xxHcnJRBqn9WqH3Sqf8EgymwhgM27yfRgNv3rlh7xiSk8xLWiAARkAHafFxJw j6JmnuLmytKwm7TbY4ch xWijewB8dRIcNYJlqZiuIkBbcYAhFGTfUIYwLESblDcrsuOex79gnQMtq29tSLY6N4dpAKDvdMBfyLks FSKix3Ajk2ZiJVdyIpXw mCyufjAhaC8ajFEfqX4pBVwgjGjeb8ClR6PdynHptWdbyxabcU9qYNO4gL8jOMxmUO3dYDUarUBxxPTh vUCwaKzdiaJoCFKrrL1h S1KdVLHrdzKgtTI3kH2dVIlmwVkfUVKxii6hmemwxXOsk4Vjs8txO8fjUMY4xTFpCNEdbAXaWzNbH96k j4pyRPJlSQRlIjQqoPmxkYKkwDm1HFvtGVydEIXcFN9swBAevY==Xvhzvxhzs Clinic Work Phone: FINAL DIAGNOSIS w8xdjSBfITRpeYShWZMgYMnblyWgOQXzgSRsQ9LywhvwGKcvFV4tSL4taGwkgGZeqZGtTHZnNuMhb8gd l090jLEfa2dcOYRYszis vRw4dSxkP26in4I4YxhwI54osZOpUYL1RUFzMBJplAWrXGYeUEK3SIFcwPCqU0fmJANaPA2yswzqMIsb LLwoLSGaeIH6KGQkwEVm C8XvUDFrARqmDYXscwm7AaJdUx4ksHWwnUpjESdkSJFuPVWbJMkbPFKaEbIiQK3nWMKmVBVfxF0bGUPm f0AocGlnlKClOK2rP81v uTlhdR42WFK4vO9qrWIosQZkt5Gwd1p9aAHtn5ApGUvdxrhnhX48keWfxkBpgOGlK9J1wrCqRF0jNAzr I7LoQBXoHIEukaTtTQHv aVLyAZquMAfjzMuozGdbI8x9SMP8NPYdUTUzs81uRE01FattEJNiiVGfBTDoRWN0v72yE4nbOJVco7Mh rTlbaCEcBL5kH4GrcMFy MxIobQdahCdiQS25P04uQOO2sHGgCZQyea3trBEgKJT1jTNlDDeexLodz9AeD1NabiJmaNtkdznaPEDz f8DqLYJtJZFgXSO5klm5vMMkGJOrxm3=Qsdbmelpm Clinic Work Phone: Gross Description z6piwYZhETIujWCEYNJpPPUxAQ2ptIwgrKd4eTwwBVSuqbV4wEHqGIodr7znBOG2b5nawvWPXuigMVLd CFblVOEbjucxLxF5RByy ZHBjelivDAd0GEpgQHMstJP4AIQufWKxD2VqGBGxBS2kvop2VZS6KUmcSTUjRtE5BRVpTuEfAadhUBq6 VYGgrxB0Iwh7IKYvGKFo uMLsj6S9VBcimzytMARnnBCuN372CWnki7OgqOWsCLwesBQpLADGFmpdPltwyTqey2RziJStTRcjFDBw RSWaHMehhpwcESe5SYEw XXigzWNjXJ8ssUhaJbezwCxdx4AyhSOnAMijHQQoKZSeDYqxCCIfSR6LNlEgQCR1Urx9Hzw6LdY5NMk0 OSBPVlMgIiAgMjgxODU4 CQXoIEn8CKy1XYqSWiX5NVBjFEebSWKwNOS3HRs7SZbvgEHgTPtfHwBHvhvklYJtYENoLBdjbpQ2ZHBb PKxxKWVtUCLEY7NWGwIP QOMQG8PNFIixMUWdBYgoDXYxC93gi5YZi8YuJW6FSYo2nvFyxlithR5pOVLsjoJoPScaaZBdB4vlBkIa MCBSZWNlaXZlZCBpbiBm m1YhQFmitdXmuaCcgXVutWxvwSLrvPcsZ6HxBA9sKDJjsmxqd71siQB8vIUmxFYsSYjmebMrTSWrtgen uQ1qEJ32WUcsKM7kCDwy WM3zKPVsBoEXu4CalGw8UDK3Ev5wuWQaQECcufWhcbWdW7Lgi8N0sHVoTGebAWAtF30of7QVz2ChWBMf b1sfhHeqd6CixQXfSAds LDEuuDAcDZzfhI6rJvDee7unjBo6ZGqyxrR5EDVsvt7gfRuqkS7jYMh8RExhPFDqJ5WkC0GvXVcfUBN8 MTAwMiBcXGRiICBPVlIg FnGsCdB6ZJH2SAVeUYk5UXinQ3AHVVSfWDD9CBo0NMf7OpU1VRu4CQGPEy9eRQmeJas2WSSxWOL6LJq6 OSBcXHQgMiBcXGYgQXJp DIauKAppaTXeAQ1duVhtiLDbqcikinW7BQKiEJogXPUkOYTJP12ES9hhHkbVUQFNOUPljdWORrdheBmj TmVzdERvYzEgDQpcbHRy nPGhFBdaplUdyszyOJLRHfgbsYTinRwuciDdWQPuK5SwweUpGKynQNKwwa5scDiuZJNxLZD8u30pkNvx J8DgOA6dCNWzzqvge68x oTS3tQCkhNEtOCfuzoWaKQViorxtyF9yOM2nTYvwWA8mHEsfAZ6sXBCkZhMJs7GkyTs7MXR3Ks2gnISc XLFtkhKiiaMpO8Nit6Q9 fEZdYRmhHAFbDWiqyQOcDD8XY5Zlz5WwWAmyjZvrSABfk69ffSXlHf3rdVAcPJW1ZAGsKWYehZUaIUOU oItfqTSxOHa1YFDeDHTp pUdiIDY4HO5aLJQxBVYybRLhNDloM7guDIUlUUXtmDLsYZ8PNILcxdHCTtmXIEBrYfZyEbJnCyJiLAc0 MyBBTVxwYXIgDQpcZXBp U45br4HMr4HoRUAnw6xwkOzrl6CphVBeLBikEIEtgONnQAbvjX6lJwIkd2xxiZf6SDewzoT2GFKzlf2i uQnchS1uHAdzl2amNUX1 LOKbmFRunTCrYFhnxYwrrD2vPxVwJhn1NSelAMByD1ZlN1EsqwU5KHUeDFwrQGAmPRLdFUs5 [facility] Work Phone: [facility] z9hibMNbRPVjxPGbToPsAEUrLCQrb7xkMLKunPOdAbIaTsSgEoQnRgqvnQYrRXKbRmKhg6opo841wBAw h2pcOANvFfP5wQCuYCZe qDElZ164EIRlLUpbk4cdb2ZcHWFcqPNxg3D4DLKWbvczlGw7rHiuN45me6C6KimnL2ipTNEoUCMbI6Ke WA3kKIKlFuf6ETG7EMV9 WHFaUJUfK5QuWW8iYXZkxRCzTUf9o8nmtXraDLVfOZZ1g1hmTAfvppGzCV7xnw6ewMr5a8mwauDoFYYx VXEjdAJCZMKnB1OziLzb My0fdDo0xNsbJitkWEK8Brk9AN8mvd26rts1qNbwVCAfkyloVbR3SLnoJRVczineWGl2PNcgTPTwwWF3 LTMkaUQnB6ObGAkuAN5g dbg9GNP5PBrjJMAeRnS7GQScbOMlMGBavOiaPXqgh545RXA4UpQxMR8gU7Yru1O8iN1ayGOdKXGcvGAy FaHcULUyfl9hnOZdENye j0VbPHI7klD5fVOneEIyMNVqHT24Igmph9OwBvqbn1PsK00wcEM9MPhfu8qmCX4eRhC9lcHcZDhyg1fq qT9kRuL7MVcnQX7yPL4x GDYsfL4yqmloZBNoVqAglccpHXXzwDohdrZvEr1pbCccJDD9MIuwT4hdsK1bNnJ2SCbyW1azlC6iBQe1 TFryaPX7BRTlxM7qOP4i whsdc6idRAiqYBarMFFjmkL9jrQmONEgvFJiV1IkrM0pYWKbPK4dutxsj7aqNHO6IGkyFEEcOVO4MeVq VAHcx9Gbrgi0EfZlx5Lv nIWmMMhpW10pe220KARbhfDlY0mxuKEtnkdeqNAlconzPWuaveO2XVEtVQPyOAvvDKNbWWYlJaAelRSj ZzEwMzNcaGljaFxmMVxk MqPtNNWaXXgeX9fmWpQdLqIxOwDVmOKato3myWqnJMsmlMMkfHMxpDI4iV0qESElfyCvqk7oLICqyAYJ wPO1ZGncsqRgP4wjmerd XKZ2ZYOsQQH8D1osPDTRpqXmNKHhZAGscWKiAKHHMNM4CVN3YCZsJIIPSUWiEEE6MDQ5EFFyJGZpqPNy XHBhclxwYXJkXHBsYWlu HQHeSJXhWeMcmDnucM2oZjEzLuRuPxmgJD8fQGJuH1qagHTpINOdYERjL9pyPsFmlU9azLrvSTuwGnLt ZnMyMlxsdHJjaCBMYWJv swT5h2O6NYbznOGhipaqUVeuvxYdTYwzoubtCJWbSPkrE9bdYfGzXBEfpTncHVrhq7NbDUWvFKRmPcWx IGcsTBD3h8U2SRfytYJsfgPVKoREIT3pnKDrcjrfMO6CLnylNHV0Jdzpdqpzw Clinic Work Phone: [facility] Work Phone: egD Study observation Narrativeon 47-89-6268Fzrqo [facility] Patient Name: Orion Harper Procedure Date: 06/30/2022 11:41 AM Date of : 1990 Admit Type: Outpatient Age: 31 Room: [facility] [place] PROC RM 2 [...] verified by the physician, the nurse, the energy project engineer and the electronics maintenance technician in the procedure room at 11:35 [...] - Non-bleeding gastric ulcers (more content not included)...PROVATIONUniversity Hospitals Portage Medical CenterRadiology Study observation (narrative)[facility] CenterXR KUB 1 VIEWon 90-33-7074GG KUB 1 VIEWEXAMINATION: XR KUB 1 VIEW HISTORY: Urinary tract [...] urinary tract calculi Electronically authenticated by: JACKSON BUTLER Date: 2022-06-30 07:02[facility]US ABD RT UPPER QUADRANTon 39-97-5923Ruwiontdi ClinicCT ABD/PEL WO IVCONon 60-64-3750Wynoykrhx ResultACTIONABLEAbnormalCleveland ClinicNo Panel Informationon 74-88-5074Hxqvpbgdb GolhfaZCFZJ-5-QWWQCMWBXPN PHENOTYPINGon 22-96-1504Fgisv-1-Antitrypsin, Mlxkx503 mg/yEOucwiv418-178SchAvita Health System Comment on above:Result Comment: Performed at: CBPerformed By: #### ALPHPHN #### [facility] [address] [place] [address] Dr. Li NagelPhenotype (PI)[facility] HospitalComment on above: Result Comment: Phenotype Population A-1-AT Concentration* Incidence % % of [...] Ranges used to confirm phenotype. Performed at: BNPerformed By: #### [facility] #### [facility] [address] [place] [address] Dr. Li NagelCLEVELAND CLIN[facility] HEMOCHROMATOSIS, DNA ANALYSISon 81-73-1977Vpzmfzzqth HemochromatosisKindred HealthcareComment on above:Result Comment: Result: c.845G>A (p.Mde239Bpp) - Not Detected c.187C>G (p.Nyb28Bni) - Not Detected c.193A>T (p.Qnn44Peg) - Not Detected Not associated with increased [...] for patients who are homozygous for c.845G>A (p.Got562Ffk) and have yet to experience clinical symptoms. . Comments: The most common HFE variants associated with hereditary hemochromatosis are c.845G>A (p.Sqw373Qbq), c.187C>G (p.Via20Axk), c.193A>T (p.Kra02Pyk). While patients homozygous for c.845G>A (p.Hxy907Ryd) are the most likely to present clinical symptoms, less than 10% develop clinically significant iron overload with tissue and organ damage. . Genetic counseling is recommended to discuss the potential clinical implications of positive results, as well as recommendations for testing family members. Genetic Coordinators are available for health care providers to discuss results at [phone]). . Test Details: Three variants analyzed: c.845G>A (p.Gqq994Fph), commonly referred to as C282Y c.187C>G (p.Ptl40Mun), commonly referred to as H63D c.193A>T (p.Sik42Etb), commonly referred to as S65C . Methods/Limitations: [...] developed and its performance characteristics determined by [employer]. It has not been cleared or approved by the Food and Drug Administration. . References: Brodie BR, Yoav PC, Deborah KV, Raymond LW, Ramsey ; [employer] Liver Diseases. Diagnosis and management of hemochromatosis: 2011 practice guideline by the [place] Liver Diseases. Hepatology. 2011 Oct;54(1):328-43. doi: 10.1002/hep.15820. PMID: 27517248; PMCID: DQT6483539. Cora G, Olegario P, Fabio MCDONALD, Tabatha H, Love O, Zev S, Vazquez I, Kofi Bob, Sunitha S. EMQN best practice guidelines for the molecular genetic diagnosis of hereditary hemochromatosis (HH). Eur J Hum Margaret. 2016 Jul;24(4):479-95. doi: 10.1038/ejhg.2015.128. Epub 2014Oct 29. PMID: 32430050; PMCID: WBD5909904. . Anitra Hager, PhD, [facility] Dm Reyna, PhD Alexandro Rodriguez, PhD, [facility] Jhony Hammond, PhD, [facility] Oumar Avila, PhD, [facility] W Leelee Brand, PhD, [facility] Pascale Gracia, PhD, [facility] Lala Marvin, PhD, [facility] HOSPITALPerformed By: #### HEPACUT #### [facility] [address] [place] [address] Dr. Li Baker by IFAon 16-86-2725Ohuwagdmupt Antibodies, IFANegativeNormal The [facility] HospitalComment on above:Result Comment: Negative <1:80 Borderline 1:80 Positive >1:80 ICAP nomenclature: AC-0 For more information about Hep-2 cell patterns use ANApatterns.org, the official website for the International Consensus on Antinuclear Antibody (DENY) Patterns (ICAP).Performed By: #### ALPHPHN #### [facility] [address] [place] [address] Dr. Li NagelCERULOPLASMINon 64-82-6487Yflarybtvaxig13.9 mg/vTBdlwlw85.0-39.0 The [facility] HospitalComment on above:Performed By: #### HEPACUT #### [facility] [address] [place] [address] Dr. Li NagelHEPATITIS A AB IGMon 25-77-2231Agm A Ab, IgMNegativeNormal NegativeThe [facility] HospitalComment on above:Performed By: #### IMMUN G #### [facility] [address] [place] [address] Dr. Li NagelIMMUNOGLOBULIN G INDEX SERUM OR CSFon 76-54-6285Lbbyfnt [Mass/Vol]4.8 g/dLNormal3.8-4.8The [facility] HospitalComment on above:Performed By: #### IMMUN G #### [facility] [address] [place] [address] Dr. Li NagelAlbumin, CSFNSPINLNChillicothe VA Medical Center on above: Result Comment: Test not performed. No spinal fluid received. contacted Radha at your facility on 43-05-7441Yqjxxuqyl By: #### IMMUN G #### [facility] [address] [place] [address] Dr. Li NagelCSF IgG IndexPomerene Hospital on above: Result Comment: Unable to calculate result since non-numeric result obtained for component test.Performed By: #### IMMUN G #### [facility] [address] [place] [address] Dr. Li Patel, Quant, CSFNSPINLNChillicothe VA Medical Center on above: Result Comment: Test not performed. No spinal fluid received. contacted Radha at your facility on 83-12-8504Ggzjvcuex By: #### IMMUN G #### [facility] [address] [place] [address] Dr. Li Patel/Alb Ratio, [facility] CenterComhawthorn center on above:Result Comment: Unable to calculate result since non-numeric result obtained for component test.Performed By: #### IMMUN G #### [facility] [address] [place] [address] Dr. Li Welchoglobulin G, Qn, Tsien870 mg/rZLbgzfb055-0842UhwFulton County Health Center on above:Performed By: #### IMMUN G #### [facility] [address] [place] [address] Dr. Li Millard-KIDNEY MICROSOMAL (LKM) ABon 45-11-7967Gexhq-Kidney Microsomal Ab1.3 UnitsNormal0.0-20.0[facility] on above:Result Comment: Negative 0.0 - 20.0 Equivocal 20.1 - 24.9 Positive >24.9 . LKM type 1 antibodies are detected in patients with autoimmune hepatitis type 2 and in up to 8% of patients with chronic HCV infection.Performed By: #### HEPACUT #### [facility] [address] [place] [address] Dr. Yilan ChangMITICHONDRIAL (M2) ANTIBODYon [id number] (M2) Antibody<20.3Cztjks2.0-20.0[facility] HospitalComment on above:Result Comment: Negative 0.0 - 20.0 Equivocal 20.1 - 24.9 Positive >24.9 . Mitochondrial (M2) Antibodies are found in 90-96% of patients with primary biliary cirrhosis.Performed By: #### ALPHPHN #### [facility] [address] [place] [address] Dr. Li Yo MUSCLE ANTIBODYon [id number] (Smooth Muscle) Antibody 9 UnitsNormal0-19The [facility] HospitalComment on above:Result Comment: Negative 0 - 19 Weak positive 20 - 30 Moderate to strong positive >30 . Actin Antibodies are found in 52-85% of patients with autoimmune hepatitis or chronic active hepatitis and in 22% of patients with primary biliary cirrhosis.Performed By: #### ALPHPHN #### [facility] [address] [place] [address] Dr. Li NagelFERRITINon [id number] [Mass/Vol]319.0 ng/mLCritically high6.2-137.0The [facility] HospitalComment on above:Performed By: #### ALPHPHN #### [facility] [address] [place] [address] Dr. Li Calderon ACOG PANEL 2: 30 to 65on 04-28-2022..NormalThe [facility] HospitalComment on above:Result Comment: Performed at: BAPerformed By: #### IMMUN G #### [facility] [address] [place] [address] Dr. Li Siddiqui Gdln ACOG [id number] Community Hospital & Brentwood HospitalComment on above:Performed By: #### IMMUN G #### [facility] [address] [place] [address] Dr. Li aNgelDIAGNOSIS:CommentProMedica Toledo HospitalComment on above: Result Comment: NEGATIVE FOR INTRAEPITHELIAL LESION OR MALIGNANCY. Performed at: BAPerformed By: #### IMMUN G #### [facility] [address] [place] [address] Dr. Li Cm AptimaNegativeNormalNegativeThe [facility] on above:Result Comment: This nucleic acid amplification test detects fourteen high-risk HPV types (16,18,31,33,35,39,45,51,52,56,58,59,66,68) without differentiation. Performed at: =GPerformed By: #### IMMUN G #### [facility] [address] [place] [address] Dr. Li Cm Genotype ReflexCommentNoGreen Cross Hospital on above:Result Comment: Criteria not met, HPV Genotype not performed. Performed at: BAPerformed By: #### IMMUN G #### [place] [address] Dr. Li NagelMethodology:CommentTogus VA Medical Center on above: Result Comment: This liquid based ThinPrep(R) pap test was screened with the use of an image guided system. Performed at: WBPerformed By: #### IMMUN G #### [place] [address] Dr. Li NagelNote:CommentTogus VA Medical Center on above:Result Comment: The Pap smear is a screening test designed to aid in the detection of premalignant and malignant conditions of the uterine cervix. It is not a diagnostic procedure and should not be used as the sole means of detecting cervical cancer. Both false-positive and false-negative reports do occur. . Performed at: WBPerformed By: #### IMMUN G #### [facility] [address] [place] [address] Dr. Li NagelPerformed by:CommentTogus VA Medical Center on above: Result Comment: Gretta Holly Service Liaison Representative (ASCP) Performed at: BAPerformed By: #### IMMUN G #### [place] [address] Dr. Li NagelSpecimen adequacy:CommentTogus VA Medical Center on above:Result Comment: Satisfactory for evaluation. No endocervical component is identified. Performed at: BAPerformed By: #### IMMUN G #### [facility] [address] [place] [address] Dr. Li BurroughsPATITIS PANEL, FORMER[facility]ITALon [id number] ScreenNegativeNormal NegativeAvita Health SystemComment on above:Performed By: #### HEPACUT #### [facility] [address] [place] [address] Dr. Li NagelHCV AB<0.3Gvcrcc1.0-0.9Avita Health SystemComment on above: Performed By: #### HEPACUT #### [facility] [address] [place] [place] [address] Dr. Li Goncalves A Ab, IgMNegativeNormalNegativeAvita Health SystemComment on above:Performed By: #### HEPACUT #### [facility] [address] [place] [address] Dr. Li Goncalves B Core Ab, IgMNegativeNormalNegativeAvita Health System Comment on above:Performed By: #### HEPACUT #### [facility] [address] [place] [address] Dr. Li NagelInterpretation:CommentTogus VA Medical Center on above:Result Comment: Negative Not infected with HCV, unless recent infection is suspected or other evidence exists to indicate HCV infection.Performed By: #### HEPACUT #### [facility] [address] [place] [address] Dr. Li NagelUS PELVIS AND TRANSVAGon [id number] PELVIS AND TRANSVAG EXAMINATION: US PELVIS AND [...] Electronically authenticated by: LAURIE CRUZ Date: 2021-12-22 09:50NoSub[facility] & Brent[facility] HospitalUS ABD RT UPPER QUADRANTon [id number] ClinicUS PELVIS AND TRANSVAGon 97-61-7070VF PELVIS AND TRANSVAGEXAMINATION: US PELVIS AND TRANSVAG HISTORY: Dyspareunia for [...] Electronically authenticated by: LAURIE CRUZ Date: 2021-10-28 13:01[facility] HospitalVAGINITIS/VAGINOSIS DNA PROBEon [id number] species NegativeNormalNegativeAvita Health SystemComment on above:Performed By: #### IMMUN G #### [facility] [address] [place] [address] Dr. Li Hancock vaginalisNegativeNormalNegativeAvita Health System Comment on above:Performed By: #### IMMUN G #### [facility] [address] [place] [address] Dr. Yilan ChangTrichomonas vaginalisNegativeNormalNegativeThe [facility] Comment on above:Performed By: #### IMMUN G #### [facility] [address] [place] [address] Dr. Li Candelario AUTO DIFFon [id number] #0.0 103/ulNormal0.0-0.1The [facility] HospitalComment on above:Performed By: #### ALPHPHN #### [facility] [address] [place] [address] Dr. Li NagelBasophils/100 WBC (Bld)0.4 %Normal0.2-2.0The [facility] Comment on above:Performed By: #### ALPHPHN #### [facility] [address] [place] [address] Dr. Li Zafar #0.2 103/ulNormal0.0-0.7The [facility] HospitalComment on above: Performed By: #### ALPHPHN #### [facility] [address] [place] [address] Dr. Li Mcdonaldosinophils/100 WBC (Bld)2.6 %Normal0.9-7.0The [facility] Comment on above:Performed By: #### ALPHPHN #### [facility] [address] [place] [address] Dr. Li Mcdonaldrythrocyte distribution width (RBC) [Ratio]12.6 %Owmvlk43.0-15.0 The [facility] HospitalComment on above:Performed By: #### ALPHPHN #### [facility] [address] [place] [address] Dr. Li NagelHematocrit (Bld) [Volume fraction]40.0 %Zxvsiu91.0-48.0The [facility] HospitalComment on above:Performed By: #### ALPHPHN #### [facility] [address] [place] [address] Dr. Li NagelHemoglobin (Bld) [Mass/Vol]13.3 g/eAUpwxre93.0-16.0The [facility] HospitalComment on above:Performed By: #### ALPHPHN #### [facility] [address] [address] [address] Li Gonzalez #0.06 10e3/ulCritically high0.00-0.03The [facility] Comment on above:Performed By: #### ALPHPHN #### [facility] [address] [address] [address] Li Gonzalez %0.9 %Critically high0.0-0.5The [facility] HospitalComment on above:Performed By: #### ALPHPHN #### [facility] [address] [address] [address] Li Castaneda #2.2 103/ulNormal1.2-3.8The [facility] HospitalComment on above:Performed By: #### ALPHPHN #### [facility] [address] [place] [address] Dr. Li Gonzalezhocytes/100 WBC (Bld)31.0 %Oidnzd43.5-60.0The [facility] HospitalComment on above:Performed By: #### ALPHPHN #### [facility] [address] [address] [address] Li AlexandraMERCY HOSPITAL DIFF REQNONormalThe [facility] HospitalComment on above: Performed By: #### ALPHPHN #### [facility] [address] [address] [address] Li Benton (RBC) [Entitic mass]31.4 rjZqlllv29.7-34.0The [facility] HospitalComment on above:Performed By: #### ALPHPHN #### [facility] [address] [place] [address] Dr. Li Rod (RBC) [Mass/Vol]33.3 g/sTQanogg01.9-35.2The [facility] HospitalComment on above:Performed By: #### ALPHPHN #### [facility] [address] [place] [address] Dr. Li Rod (RBC) [Entitic vol]94.3 rOCmihrh30.0-99.0The [facility] HospitalComment on above:Performed By: #### LOUPHN #### [facility] [address] [place] [address] Dr. Li Wagner #0.5 103/ulNormal0.3-0.8The [facility] HospitalComment on above:Performed By: #### LOUPHN #### [facility] [address] [place] [address] Dr. Li Kerrocytes/100 WBC (Bld)6.9 %Normal1.7-12.0The [facility] Comment on above:Performed By: #### YOEL #### [facility] [address] [place] [address] Dr. Li Ortiz #4.1 103/ulNormal1.4-6.5The [facility] HospitalComment on above:Performed By: #### LOUPHN #### [facility] [address] [place] [address] Dr. Li Rangelutrophils/100 WBC (Bld)58.2 %Hsffpa81.0-75.0The [facility] HospitalComment on above:Performed By: #### LOUPHN #### [facility] [address] [place] [address] Dr. Li Morales mean volume (Bld) [Entitic vol]11.0 fLNormal9.5-13.5The [facility] HospitalComment on above:Performed By: #### ALPHPHN #### [facility] [address] [place] [address] Dr. Li NagelPLT211 103/ocSjapvr201-745Pew [facility] HospitalComment on above: Performed By: #### ALPHPHN #### [facility] [address] [place] [address] Dr. Li NagelRBC4.24 106/ulNormal4.20-5.40The [facility] HospitalComment on above:Performed By: #### LOUPHN #### [facility] [address] [place] [address] Dr. Li NagelWBC7.0 103/ulNormal4.0-11.0The [facility] HospitalComment on above: Performed By: #### ALPHPHN #### [facility] [address] [address] [address] Li NagelCT ABD/PELV W CONon [id number] ABD/PELV W CONEXAMINATION: CT ABD/PELV W CON HISTORY: Abdominal pain [...] authenticated by: MARIA DOLORES MOON Date: 2021-10-20 14:53NormKettering Health Behavioral Medical CenterOCC BLD IMMUNO SCREENon 34-89-3421VWVGWG BLOODNegativeNormal NEGATIVEThe [facility] HospitalComment on above:Performed By: #### OBSCRN #### [facility] [address] [address] [address] Li NagelPROJonathon 14(COMP METB)on 08-16-7698Nqsdwku [Mass/Vol]3.7 g/dLNormal 3.4-5.0The [facility] HospitalComment on above:Performed By: #### ALPHPHN #### [facility] [address] [address] [address] Li NagelAlbumin/Globulin [Mass ratio]1.2 {ratio}NormalThe [facility] HospitalComment on above:Performed By: #### ALPHPHN #### [facility] [address] [address] [address] Li LuciaP [Catalytic activity/Vol]86 U/ITspfmv95-947Fjt [facility] HospitalComment on above:Performed By: #### ALPHPHN #### [facility] [address] [address] [address] Li LuciaT [Catalytic activity/Vol]109 U/LCritically ysne46-32Cgt [facility] HospitalComment on above:Performed By: #### ALPHPHN #### [facility] [address] [address] [address] Li NagelAnion gap [Moles/Vol]7.8 mmol/LNormalThe [facility] HospitalComment on above:Performed By: #### ALPHPHN #### [facility] [address] [address] [address] Li NagelAST [Catalytic activity/Vol]57 U/LCritically segx78-14Arv [facility]ost[facility] City Hospitalment on above:Performed By: #### ALPHPHN #### [facility] [address] [address] [address] Li NagelBilirubin [Mass/Vol]0.4 mg/dLNormal0.2-1.0The [facility] Comment on above:Performed By: #### ALPHPHN #### [facility] [address] [address] [address] Li NagelCalcium [Mass/Vol]8.9 mg/dLNormal8.5-10.1The [facility] Comment on above:Performed By: #### ALPHPHN #### [facility] [address] [address] [address] Li NagelChloride [Moles/Vol]104 mmol/ZLbywhg57-718Ibw [facility] Comment on above:Performed By: #### ALPHPHN #### [facility] [address] [address] [address] Li NagelCO2 [Moles/Vol]27.7 mmol/BBeqgsm01.0-32.0The [facility] Comment on above:Performed By: #### ALPHPHN #### [facility] [address] [address] [address] Li NagelCreatinine [Mass/Vol]0.78 mg/dLNormal0.55-1.02Avita Health SystemComment on above:Performed By: #### ALPHPHN #### [facility] [address] [address] [address] Li McdonaldGFR-AF NIGERIEN>60Normal>=60The [facility] HospitalComment on above:Performed By: #### ALPHPHN #### [facility] [address] [place] [address] Dr. Li McdonaldGFR-NON AF NIGERIEN>60Normal>=60The [facility] HospitalComment on above:Performed By: #### ALPHPHN #### [facility] [address] [address] [address] Li NagelGlobulin (S) [Mass/Vol]3.2 g/dLNormalThe [facility] HospitalComment on above:Performed By: #### ALPHPHN #### [facility] [address] [address] [address] Li NagelGlucose [Mass/Vol]104 mg/zXTgpuhj46-502Auc [facility] Comment on above:Performed By: #### ALPHPHN #### [facility] [address] [address] [address] Li NagelPotassium [Moles/Vol]3.5 mmol/LNormal3.5-5.1The [facility] Comment on above:Performed By: #### ALPHPHN #### [facility] [address] [address] [address] Li NagelProtein [Mass/Vol]6.9 g/dLNormal6.4-8.2The [facility] Comment on above:Performed By: #### ALPHPHN #### [facility] [address] [place], [place] [address] Dr. Li NagelSodium [Moles/Vol]136 mmol/KRhtbpn403-057Eet [facility] Comment on above:Performed By: #### ALPHPHN #### [facility] [address] [address] [address] Li NagelUrea nitrogen [Mass/Vol]10.0 mg/dLNormal7.0-18.0The [facility] HospitalComment on above:Performed By: #### ALPHPHN #### [facility] [address] [address] [address] Li NagelUrea nitrogen/Creatinine [Mass ratio]12.8 mg/mgNoSuburban Community Hospital & Brentwood HospitalComment on above:Performed By: #### ALPHPHN #### [facility] [address] [address] [address] Li NagelXR LSPINE MIN 4 VIEWSon 82-53-7876EK LSPINE MIN 4 VIEWS EXAMINATION: XR LSPINE [...] Electronically authenticated by: LAURIE CRUZ Date: 2021-09-06 15:05[facility] HospitalNM HEPATOBILIARY SCAN W EFon [id number] HEPATOBILIARY SCAN W EFEXAMINATION: NM HEPATOBILIARY SCAN W EF HISTORY: Right [...] gallbladder ejection fraction Electronically authenticated by: JACKSON BUTLER Date: 2021-08-27 16:05[facility] HospitalComprehensive Metabolic Panelon 89-75-0221Xvykpne [Mass/Vol]5.0 g/dLNormal3.6-5.1[facility] [place] [facility] SpecialistComment on above:Performed By: #### CMP #### [facility] [address], [place] [id number]/Globulin [Mass ratio]2.1 {ratio}Normal1.0-2.5Norttucson va medical centern [facility] SpecialistComment on above:Performed By: #### CMP #### [facility] [address], [place] [id number] [Catalytic activity/Vol]110 U/RErqhms97-753Stlyqxcu [place] Medical SpecialistComment on above:Performed By: #### CMP #### [facility] [address], [place] [id number] [Catalytic activity/Vol]71 U/LHigh6-33NortThe [facility] Hospital SpecialistComment on above:Result Comment: 03/24/2021 Female reference range changed.Performed By: #### CMP #### [facility] [address], [place] [id number] gap [Moles/Vol]17 mmol/QPfaztl98-03Hzggomrd [place] [facility] SpecialistComment on above:Result Comment: Effective 04/29/2019 reference range changed.Performed By: #### CMP #### [facility] [address], [place] [id number] [Catalytic activity/Vol]69 U/LHigh9-34NortThe [facility] Hospital SpecialistComment on above:Performed By: #### CMP #### [facility] [address], [place] [id number]/CREA11 RatioNormal6-22NortSelect [facility] Comment on above:Performed By: #### CMP #### [facility] [address], [place] [id number] [Mass/Vol]9.8 mg/dLNormal8.6-10.2[facility] SpecialistComment on above:Performed By: #### CMP #### [facility] [address], [place] [id number] [Moles/Vol]99 mmol/RHgltbl20-823Vtcbzejo [place] Medical SpecialistComment on above:Performed By: #### CMP #### [facility] [address], [place] [id number] [Moles/Vol]25 mmol/XDtdfgs69-82Bthbrjxi [place] Medical SpecialistComment on above:Performed By: #### CMP #### [facility] [address], [place] [id number] [Mass/Vol]0.9 mg/dLNormal0.6-1.4[facility]ortThe [facility] SpecialistComment on above:Performed By: #### CMP #### [facility] [address], [place] [id number] mL/min/1.77t5Feuuhj>60[facility]ortThe [facility] SpecialistComment on above:Performed By: #### CMP #### [facility] [address], [place] [id number] mL/min/1.80w4Jnoqfs>60[facility]ortThe [facility] SpecialistComment on above:Performed By: #### CMP #### [facility] [address], [place] [id number] (S) [Mass/Vol]2.4 g/dLNormal1.9-3.7NortThe [facility] SpecialistComment on above:Performed By: #### CMP #### [facility] [address], [place] [id number] [Mass/Vol]100 mg/sMUsji73-92Nxanomlr [place] Medical SpecialistComment on above:Result Comment: For FASTING Glucose --- ADA reference ranges: Normal 65-99 mg/dl Prediabetes 100-125 Diabetes >/= 126Performed By: #### CMP #### [facility] [address], [place] [id number] [Moles/Vol]3.8 mmol/LNormal3.5-5.5[facility] SpecialistComment on above:Performed By: #### CMP #### [facility] [address], [place] [id number] [Mass/Vol]7.4 g/dLNormal6.1-8.1[facility] [place] [facility] SpecialistComment on above:Performed By: #### CMP #### [facility] [address], [place] [id number] [Moles/Vol]137 mmol/SRzfhmb329-799Nrhvggvj [facility] SpecialistComment on above:Performed By: #### CMP #### [facility] [address], [place] [id number]<0.3NormalNorthern [facility] SpecialistComment on above:Performed By: #### CMP #### [facility] [address], [place] [id number] nitrogen [Mass/Vol]10 mg/dLNormal7-25Norttuc[facility] centern [facility] SpecialistComment on above:Performed By: #### CMP #### [facility] [address], [place] [id number] SINGLE QUAD RT UPPERon 56-32-7418LH SINGLE QUAD RT UPPER EXAMINATION: US SINGLE [...] hepatic steatosis favored Electronically authenticated by: JACKSON BUTLER Date: 2021-08-16 08:19[facility] HospitalComplete Blood Count with Auto Diffon 88-02-9722Wlpbhunwm (Bld) [#/Vol]0.03 10*3/uLNormal0.00-0.20[facility] HospitalComment on above:Performed By: #### CMP, CBCAD, LIPD #### [facility] [address], [place] [id number]/100 WBC (Bld)0.4 %[facility] Medical CenterComment on above:Performed By: #### CMP, CBCAD, LIPD #### [facility] [address], [place] [id number] (Bld) [#/Vol]0.11 10*3/uLNormal0.02-0.50[facility] HospitalComment on above:Performed By: #### CMP, CBCAD, LIPD #### [facility] [address], [place] [id number]/100 WBC (Bld)1.4 %[facility] SpecialistComment on above:Performed By: #### CMP, CBCAD, LIPD #### [facility] [address], [place] [id number] distribution width (RBC) [Ratio]12.6 %Normal 11.0-15.0[facility] HospitalComment on above:Performed By: #### CMP, CBCAD, LIPD #### [facility] [address], [place] [id number] (Bld) [Volume fraction]44.2 %Yanyng45.0-47.0 [facility] HospitalComment on above:Performed By: #### CMP, CBCAD, LIPD #### [facility] [address], [place] [id number] (Bld) [Mass/Vol]14.8 g/nIZzpatr22.6-15.5NoAdams County Hospital SpecialistComment on above:Performed By: #### CMP, CBCAD, LIPD #### [facility] [address], [place] [id number] (Bld) [#/Vol]2.2 10*3/uLNormal0.9-3.9NoAdams County Hospital SpecialistComment on above:Performed By: #### CMP, CBCAD, LIPD #### [facility] [address], [place] [id number]/100 WBC (Bld)28.1 %NormalNoAdams County Hospital SpecialistComment on above:Performed By: #### CMP, CBCAD, LIPD #### [facility] [address], [place] [id number] (RBC) [Entitic mass]31.2 vcIokfiz91.0-33.0NoAdams County Hospital SpecialistComment on above:Performed By: #### CMP, CBCAD, LIPD #### [facility] [address], [place] [id number] (RBC) [Mass/Vol]33.5 g/pZVbwxda15.0-36.0NoAdams County Hospital SpecialistComment on above:Performed By: #### CMP, CBCAD, LIPD #### [facility] [address], [place] [id number] (RBC) [Entitic vol]93 yBGwypde25-096Cziaokxr [place] [facility] SpecialistComment on above:Performed By: #### CMP, CBCAD, LIPD #### [facility] [address], [place] [id number] (Bld) [#/Vol]0.4 10*3/uLNormal0.2-0.9NoAdams County Hospital SpecialistComment on above:Performed By: #### CMP, CBCAD, LIPD #### [facility] [address], [place] [id number]/100 WBC (Bld)4.8 %NormalSelect Medical Specialty Hospital - [facility] SpecialistComment on above:Performed By: #### CMP, CBCAD, LIPD #### [facility] [address], [place] [id number] (Bld) [#/Vol]5.1 10*3/uLNormal1.5-7.8NoAdams County Hospital SpecialistComment on above:Performed By: #### CMP, CBCAD, LIPD #### [facility] [address], [place] [id number]/100 WBC (Bld)64.3 %NormalNoAdams County Hospital SpecialistComment on above:Performed By: #### CMP, CBCAD, LIPD #### [facility] [address], [place] [id number] mean volume (Bld) [Entitic vol]11.00 fLNormal 7.50-12.50NoAdams County Hospital SpecialistComment on above:Performed By: #### CMP, CBCAD, LIPD #### [facility] [address], [place] [id number] (Bld) [#/Vol]296 10*3/qPKxnaog903-855Atkwzkgu [place] Medical SpecialistComment on above:Performed By: #### CMP, CBCAD, LIPD #### [facility] [address], [place] [id number] (Bld) [#/Vol]4.74 10*6/uLNormal3.90-5.20[facility]ortThe [facility] Hospital SpecialistComment on above:Performed By: #### CMP, CBCAD, LIPD #### [facility] [address], [place] [id number]-TD57.4 eLTvsrfr47.0-50.0NoAdams County Hospital Specialist Comment on above:Performed By: #### CMP, CBCAD, LIPD #### [facility] [address], [place] [id number] (Bld) [#/Vol]8.0 10*3/uLNormal3.8-11.0NoAdams County Hospital SpecialistComment on above:Performed By: #### CMP, CBCAD, LIPD #### [facility] [address], [place] [id number] Metabolic Panelon 22-83-0916Jqzghrr [Mass/Vol] 5.2 g/dLHigh3.6-5.1[facility] SpecialistComment on above:Performed By: #### CMP, CBCAD, LIPD #### [facility] [address], [place] [id number]/Globulin [Mass ratio]2.1 {ratio}Normal1.0-2.5NoAdams County Hospital SpecialistComment on above:Performed By: #### CMP, CBCAD, LIPD #### [facility] [address], [place] [id number] [Catalytic activity/Vol]115 U/YFjtobv57-863Iwveuogl [place] [facility] SpecialistComment on above:Performed By: #### CMP, CBCAD, LIPD #### [facility] [address], [place] [id number] [Catalytic activity/Vol]101 U/LHigh6-33NoAdams County Hospital SpecialistComment on above:Result Comment: 03/24/2021 Female reference range changed.Performed By: #### CMP, CBCAD, LIPD #### [facility] [address], [place] [id number] gap [Moles/Vol]20 mmol/NFgqyos94-33Mhagvkvg [place] [facility] SpecialistComment on above:Result Comment: Effective 04/29/2019 reference range changed.Performed By: #### CMP, CBCAD, LIPD #### [facility] [address], [place] [id number] [Catalytic activity/Vol]96 U/LHigh9-34NoAdams County Hospital SpecialistComment on above:Performed By: #### CMP, CBCAD, LIPD #### [facility] [address], [place] [id number]/CREA9 RatioNormal6-22Norttuc[facility] centern [place] [employer] [employer] Comment on above:Performed By: #### CMP, CBCAD, LIPD #### [facility] [address], [place] [id number] [Mass/Vol]9.9 mg/dLNormal8.6-10.2[facility] [place] [facility] SpecialistComment on above:Performed By: #### CMP, CBCAD, LIPD #### [facility] [address], [place] [id number] [Moles/Vol]106 mmol/LOagifz86-603Wruzrbwt [place] [facility] SpecialistComment on above:Performed By: #### CMP, CBCAD, LIPD #### [facility] [address], [place] [id number] [Moles/Vol]21 mmol/YOqovsb08-00Ftsbavqp [facility] SpecialistComment on above:Performed By: #### CMP, CBCAD, LIPD #### [facility] [address], [place] [id number] [Mass/Vol]0.9 mg/dLNormal0.6-1.4Norttuc[facility] medical centern [place] [facility] SpecialistComment on above:Performed By: #### CMP, CBCAD, LIPD #### [facility] [address], [place] [id number] mL/min/1.88h6Jpbptb>60Norttucson va medical centern [place] [facility] SpecialistComment on above:Performed By: #### CMP, CBCAD, LIPD #### [facility] [address], [place] [id number] mL/min/1.45o6Pqhysd>60NortSelect Medical [facility] Medical SpecialistComment on above:Performed By: #### CMP, CBCAD, LIPD #### [facility] [address], [place] [id number] (S) [Mass/Vol]2.5 g/dLNormal1.9-3.7[facility] [place] [facility] SpecialistComment on above:Performed By: #### CMP, CBCAD, LIPD #### [facility] [address], [place] [id number] [Mass/Vol]127 mg/mRXkhs10-87Fnlsukwz [place] [facility] SpecialistComment on above:Result Comment: For FASTING Glucose --- ADA reference ranges: Normal 65-99 mg/dl Prediabetes 100-125 Diabetes >/= 126Performed By: #### CMP, CBCAD, LIPD #### [facility] [address], [place] [id number] [Moles/Vol]4.2 mmol/LNormal3.5-5.5[facility]ortThe [facility] SpecialistComment on above:Performed By: #### CMP, CBCAD, LIPD #### [facility] [address], [place] [id number] [Mass/Vol]7.7 g/dLNormal6.1-8.1[facility] SpecialistComment on above:Performed By: #### CMP, CBCAD, LIPD #### [facility] [address], [place] [id number] [Moles/Vol]143 mmol/YNrrtuc826-892Sgqbumvb [place] [facility] SpecialistComment on above:Performed By: #### CMP, CBCAD, LIPD #### [facility] [address], [place] [id number]<0.3NormalNoAdams County Hospital SpecialistComment on above:Performed By: #### CMP, CBCAD, LIPD #### [facility] [address], [place] [id number] nitrogen [Mass/Vol]8 mg/dLNormal7-25NortThe [facility] SpecialistComment on above:Performed By: #### CMP, CBCAD, LIPD #### [facility] [address], [place] [id number] A1Con 07-38-7906ECK76.67NormalNoAdams County Hospital SpecialistComment on above:Performed By: #### A1C #### [facility] [address], [place] [id number] (Bld) [Mass fraction]5.1 %Normal4.0-6.0NoAdams County Hospital SpecialistComment on above:Performed By: #### A1C #### [facility] [address], [place] [id number] Panelon 10-00-5149Vewntzeaykn [Mass/Vol]190 mg/dLNormal 125-200NortThe [facility] SpecialistComment on above:Result Comment: Low risk < 200mg/dL Borderline risk 201-239 mg/dl High risk > or equal to 240Performed By: #### CMP, CBCAD, LIPD #### [facility] [address], [place] [id number] in HDL [Mass/Vol]64 mg/dLNormal>40NoAdams County Hospital SpecialistComment on above:Result Comment: High Cardiovascular Risk HDL <40 mg/dL Low Cardiovascular Risk HDL > or equal to 60 mg/dlPerformed By: #### CMP, CBCAD, LIPD #### [facility] [address], [place] [id number] in LDL [Mass/Vol]107 mg/dLNormalNoAdams County Hospital SpecialistComment on above:Result Comment: LDL ATP III CLASSIFICATION LDL less than 100 mg/dl Optimal LDL 100-129 mg/dl Near or above optimal LDL 130-159 Borderline high LDL 160-189 High LDL greater than 189 mg/dl Very HighPerformed By: #### CMP, CBCAD, LIPD #### [facility] [address] [place], [place] [id number] in VLDL [Mass/Vol]19 mg/dLNormalNoAdams County Hospital SpecialistComment on above:Performed By: #### CMP, CBCAD, LIPD #### [facility] [address] [place], [place] [id number].total/Cholesterol in HDL [Mass ratio]3 {ratio} NormalNortThe Christ Hospital SpecialistComment on above:Performed By: #### CMP, CBCAD, LIPD #### [facility] [address] [place], [place] [id number] [Mass/Vol]95 mg/tNFpceoh29-776Eutttzzp [facility] SpecialistComment on above:Result Comment: TRIG ATPIII CLASSIFICATIONS TRIG less than 150 mg/dl Normal TRIG 150-199 mg/dl Borderline High TRIG 200-500 mg/dl High TRIG greather than 500 mg/dl Very HighPerformed By: #### CMP, CBCAD, LIPD #### [facility] [address] [place], [place] [id number] - CULTURE,URINE,ROUTINEon 75-85-7150QEAMQGS, URINE, ROUTINE SEE NOTENormalNorthern [facility] SpecialistComment on above:Order Comment: [facility] performed at: [employer], [facility], [address] [place] [address], [address] [place] [address], [id number], Library Technician: Tim Dotson MD [facility] Collection Date/Time: [facility] Results Received Date/Time: [facility] Reported Date/Time: [id number] Comment: CULTURE, URINE, ROUTINE Micro Number: [id number] Test Status: Final Specimen Source: Not given Specimen Quality: Adequate Result: Mixed genital marie isolated. These superficial bacteria are not indicative of a urinary tract infection. No further organism identification is warranted on this specimen. If clinically indicated, recollect clean-catch, mid-stream urine and transfer immediately to Urine Culture Transport Tube.Performed By: #### [id number] #### [facility] Default [address] [place], [place] [address]MJW LUMBAR SPINE WO CONTRASTon 40-28-2683GEL LUMBAR SPINE WO CONTRASTEXAMINATION: MRI LUMBAR SPINE WO CONTRAST HISTORY: M54.16 [...] Signed by: Naren Lagos MD 11/06/18 [facility]NoY[facility] Vital Signs Date TimeVital SignValuePerforming JxaypzmitTyqrurdf69-05-5645 16:59-0400Body tquxae505.5 cmMarc Dolce DPM FACFAS Work Phone: [phone] [place], [place] 2310610-22-2025 16:59-0400Body mass index (BMI) [Ratio]38.78 kg/m2Marc Dolce DPM FACFAS Work Phone: [phone] [place], [place] 2310610-22-2025 16:59-0400Body rjaxcf23.16 kgMarc Dolce DPM FACFAS Work Phone: [phone] [place], [place] 2310610-22-2025 16:59-0400Diastolic blood kokprxgq44 mm[Hg]Milton Dolce DPM FACFAS Work Phone: [phone] [place], [place] 2310610-22-2025 16:59-0400Heart rate84 /min Milton Dolce DPM FACFAS Work Phone: [phone] [place], [place] 2310610-22-2025 16:59-0400Systolic blood ijuchnjc581 mm[Hg]Milton Dolce DPM FACFAS Work Phone: [phone] [place], [place] 2310609-24-2025 16:24-0400Body plfzby643.5 cmMarc Dolce DPM FACFAS Work Phone: [phone] [place], [place] 2310609-24-2025 16:24-0400Body mass index (BMI) [Ratio]38.78 kg/m2Marc Dolce DPM FACFAS Work Phone: [phone] [place], [place] 2310609-24-2025 16:24-0400Body aoyzek57.16 kgMarc Dolce DPM FACFAS Work Phone: [facility] LouisMlwpnlshmd94-73-9032 16:24-0400Diastolic blood aaiqwcic95 mm[Hg]Milton Adryanbran DPM FACFAS Work Phone: [facility] LouisAhvhklimjk92-54-3353 16:24-0400Heart rate88 /min Milton Adryanbran DPM FACFAS Work Phone: [facility] LouisJyzagezfkj77-22-8243 16:24-0400Systolic blood yrigtmem216 mm[Hg]Milton Adryanbran DPM FACFAS Work Phone: [facility] LouisUnkueefnki54-77-7468 11:01-0400Body lghage870.5 cmRolamide Hagen MD Work Phone: [facility] CareVlonytajuk82-92-8797 11:01-0400Body mass index (BMI) [Ratio]38.78 kg/g5UrqxcGiovani Hagen MD Work Phone: [facility] CareMuejzdjrat74-84-1113 11:01-0400Body .16 kgGiovani Hagen MD Work Phone: [facility] CareUqgsfktenl50-26-3600 11:01-0400Diastolic blood wbaeugvu74 mm[Hg]Giovani Hagen MD Work Phone: [facility] CareXkndcjciaa45-60-6523 11:01-0400Heart rate90 /min Giovani Hagen MD Work Phone: [facility] LouisUsqtpqhweb87-24-3492 11:01-0400Respiratory rate16 /minGiovani Hagen MD Work Phone: [place] [address]Noyzylkqok58-76-7775 11:01-6190ZrX0% (BldA) [Mass fraction]97 %Giovani Hagen MD Work Phone: [facility]The [facility] LouisCumchlcmpq49-55-2494 11:01-0400Systolic blood ejsoypkw312 mm[Hg]Giovani Hagen MD Work Phone: [facility] LouisYitkxwhgqg72-21-6530 13:46-0400Body aikqzj488.5 cmMarc Dolce DPM FACFAS Work Phone: [facility] CareOeargvlfxj10-17-5979 13:46-0400Body mass index (BMI) [Ratio]37.68 kg/m2Milton Adryanbran DPM FACFAS Work Phone: [facility] CareBfndubqxgw20-81-7726 13:46-0400Body gotuyr73.44 kgMarc Adryanbran DPM FACFAS Work Phone: [facility] CarePboloqqicc40-73-2894 13:46-0400Diastolic blood ldjmsqyy96 mm[Hg]Milton Adryanbran DPM FACFAS Work Phone: [phone] CareFjwguugpwn89-79-6117 13:46-0400Heart rate91 /min Milton Adryanbran DPM FACFAS Work Phone: [facility] CareDzrxrdlony25-49-0044 13:46-0400Systolic blood dqcgwoxr671 mm[Hg]Milton Adryanbran DPM FACFAS Work Phone: [phone] CareBqanlvvlpm06-82-1953 09:14-0400Body mass index (BMI) [Ratio]36.28 kg/m2Erin Reaper CHIEF TECHNICIAN X RAY.OXIDATION ENGINEER Work Phone: [place] Yycolt64-69-3308 09:14-0400Body ijxvws53.9 kgErin Reaper CHIEF TECHNICIAN X RAY.OXIDATION ENGINEER Work Phone: [place] Buotni16-11-1920 09:14-0400Diastolic blood jlevrncl23 mm[Hg]Emma Reaper CHIEF TECHNICIAN X RAY.OXIDATION ENGINEER Work Phone: [place] Nmdjnc58-35-2545 09:14-0400Systolic blood klhrywkx441 mm[Hg]Emma Reaper CHIEF TECHNICIAN X RAY.OXIDATION ENGINEER Work Phone: [phone] Uyadzk49-43-2379 13:17-0400Body eomeur647.5 cmJatin Parisi MD Work Phone: [facility] CareUeuuurvnwc21-91-5288 13:17-0400Body mass index (BMI) [Ratio]37.68 kg/x2GexbdpbJatin Parisi MD Work Phone: [facility]The [facility] LouisAhgglbvptf76-11-0146 13:17-0400Body zayket53.44 kgJatin Parisi MD Work Phone: [facility] CareCqdymtixio87-23-6263 13:17-0400Diastolic blood rrondqyc08 mm[Hg]Jatin Parisi MD Work Phone: [facility] CareUnwojocmir10-71-5842 13:17-0400Systolic blood isgabsnz956 mm[Hg]Jatin Parisi MD Work Phone: [facility] CarePciqpqzkjm47-11-1379 09:45-0400Body iyxahe464.5 cmRolamide Hagen MD Work Phone: [facility] CareZxwvhieuxi13-13-5270 09:45-0400Body mass index (BMI) [Ratio]36.76 kg/t4SvxwuGiovani Hagen MD Work Phone: [facility] CareCybgmyxyaf18-54-3636 09:45-0400Body .17 kgGiovani Hagen MD Work Phone: [facility] CareVsbipormzg98-54-8400 09:45-0400Diastolic blood aampdial21 mm[Hg]Giovani Hagen MD Work Phone: [facility] CareXvtxsvoblr52-14-9774 09:45-0400Heart rate93 /min Giovani Hagen MD Work Phone: [facility] CareFoafplzdkv77-75-9248 09:45-1699LaF0% (BldA) [Mass fraction]98 %Giovani Hagen MD Work Phone: [facility] CareHycpuvggab74-54-1808 09:45-0400Systolic blood tgxzolbh957 mm[Hg]Giovani Hagen MD Work Phone: [facility] CarePtzczzndvb51-34-7219 10:18-0400Body ghiakt153.5 cmMarc Dolce DPM FACFAS Work Phone: [facility] LouisDgfelpwsns53-61-2882 10:18-0400Body mass index (BMI) [Ratio]36.76 kg/m2Marc Dolce DPM FACFAS Work Phone: [facility] LouisZuqvhopvfu12-23-5544 10:18-0400Body vezeqo86.17 kgMarc Dolce DPM FACFAS Work Phone: [facility] CareBefuencrcx53-78-3997 10:18-0400Diastolic blood mm[Hg]Milton Fraire DPM FACFAS Work Phone: [facility] CareMxxurusbmy45-65-0391 10:18-0400Heart rate88 /min Milton Fraire DPM FACFAS Work Phone: [facility] CareXpgszjxgcb22-71-3244 10:18-0400Systolic blood odhyqypx917 mm[Hg]Milton Fraire DPM FACFAS Work Phone: [facility] CareNkpydhvtaq92-89-5897 10:38-0400Body .5 cmKaren Hemmer PA Work Phone: [facility] CareSspwmwihgd09-15-6776 10:38-0400Body mass index (BMI) [Ratio]36.62 kg/y9Yfahw Hemmer PA Work Phone: [facility] CareTjkaudkycp67-70-3392 10:38-0400Body ygwqre67.81 kgKaren Hemmer PA Work Phone: [facility] CareXogyiwtoeu66-87-1030 10:38-0400Diastolic blood bqahoplk35 mm[Hg]Sandy Hemmer PA Work Phone: [facility] CareVjjtrcxjch83-57-1281 10:38-0400Heart rate89 /min Sandy Hemmer PA Work Phone: [facility] CarePuezlyqaog24-69-9428 10:38-0400Respiratory rate16 /minKaren Hemmer PA Work Phone: [facility] CareRwzaxqgbxz58-15-4661 10:38-9011ZvK9% (BldA) [Mass fraction]98 %Sandy Hemmer PA Work Phone: [facility] CareMbhxyfluow99-86-2608 10:38-0400Systolic blood mm[Hg]Sandy Hemmer PA Work Phone: [facility] CareZzklixteop60-15-4949 12:31-0400Body gyfqhk806.5 cmShannon Ochoa STONEMASON SUPERVISOR Work Phone: [facility] CareWkztobimvz94-54-7114 12:31-0400Body mass index (BMI) [Ratio]35.3 kg/i8WbhemdqagzShannon Ochoa STONEMASON SUPERVISOR Work Phone: noThe [facility] LouisThubgsiorb17-60-9241 12:31-0400Body uhvuap42.54 kgJagood Navarroi STONEMASON SUPERVISOR Work Phone: [facility]The [facility] LouisRvgzwllqmv70-87-2395 13:00-0400Body mass index (BMI) [Ratio]33.83 kg/h8HqacshwfcMario Harper CHIEF TECHNICIAN X RAY.OXIDATION ENGINEER Work Phone: [facility]06-18-2025 13:00-0400Body nckoim46.64 kgMario Harper CHIEF TECHNICIAN X RAY.OXIDATION ENGINEER Work Phone: [facility]06-18-2025 13:00-0400Diastolic blood eilxhoyl49 mm[Hg]Mario Harper CHIEF TECHNICIAN X RAY.OXIDATION ENGINEER Work Phone: [facility]06-18-2025 13:00-0400Heart csuu435 /minMario Harper CHIEF TECHNICIAN X RAY.OXIDATION ENGINEER Work Phone: [facility]06-18-2025 13:00-9760VrG1% (BldA) [Mass fraction]99 %Mario Harper CHIEF TECHNICIAN X RAY.OXIDATION ENGINEER Work Phone: [facility]06-18-2025 13:00-0400Systolic blood mm[Hg]Mario Harper CHIEF TECHNICIAN X RAY.OXIDATION ENGINEER Work Phone: [facility]06-17-2025 11:42-0400Body qsvicd128.5 cmScole Lyn STONEMASON SUPERVISOR Work Phone: [facility]The [facility] LouisIwljfkperb50-05-2907 11:42-0400Body mass index (BMI) [Ratio]34.75 kg/a3MoldqqDeena Lyn STONEMASON SUPERVISOR Work Phone: [facility] LouisMorapzaugq74-52-4609 11:42-0400Body phlrku43.18 kgDeena Lyn STONEMASON SUPERVISOR Work Phone: [facility] LouisFndzvvbjdx34-62-5810 11:42-0400Diastolic blood qxabljin93 mm[Hg]Deena Narberth STONEMASON SUPERVISOR Work Phone: [facility] CareXzqjbqdkwk71-85-8288 11:42-0400Heart yfsy241 /min Deena Riki STONEMASON SUPERVISOR Work Phone: [facility] CarePzatrkkfal17-08-3574 11:42-0400Respiratory rate16 /minSri Riki STONEMASON SUPERVISOR Work Phone: [facility] CareMlslckqrsg33-57-4938 11:42-4348XvC2% (BldA) [Mass fraction]99 %Deena Dialvely STONEMASON SUPERVISOR Work Phone: [facility] CareLimwlcrved72-76-5247 11:42-0400Systolic blood mm[Hg]Deena Dialvely STONEMASON SUPERVISOR Work Phone: [facility] CareBbacbzbixq84-32-6238 10:25-0400Body rtsfyl489.5 cmScole Dialvely STONEMASON SUPERVISOR Work Phone: [phone] [place], [place] [address]Txykjuewck32-61-1045 10:25-0400Body mass index (BMI) [Ratio]35.74 kg/k3Rcsanimaryan Lyn STONEMASON SUPERVISOR Work Phone: [facility] CareRmsuhincer79-92-4878 10:25-0400Body .63 kgShmaryan Lyn STONEMASON SUPERVISOR Work Phone: [facility] CareKfjnmrlqnu56-33-5458 10:25-0400Diastolic blood sxtlyupx32 mm[Hg]Deena Dialvely STONEMASON SUPERVISOR Work Phone: [facility] CareRumczontfw41-24-0522 10:25-0400Heart rate94 /min Deena Dialvely STONEMASON SUPERVISOR Work Phone: [facility] CareMruntvaobv69-38-8869 10:25-0400Respiratory rate17 /minScole Dialvely STONEMASON SUPERVISOR Work Phone: 1(756)277-[address] [place], [place] [address]Rcybwvktqj27-46-6545 10:25-9392LoC1% (BldA) [Mass fraction]97 %Deena Lyn STONEMASON SUPERVISOR Work Phone: [facility] CareQucowgyzht78-85-0421 10:25-0400Systolic blood mxnhayvt270 mm[Hg]Deena Lyn STONEMASON SUPERVISOR Work Phone: [facility] CareGnxemywvbu65-45-7104 11:11-0400Body .5 cmSandy Hemmer PA Work Phone: [facility] CareYvfhjkbqhy96-82-9413 11:11-0400Body mass index (BMI) [Ratio]35.26 kg/y2Hlqcu Hemmer PA Work Phone: [facility] CareZtzoksbcat74-01-4726 11:11-0400Body ldecfy52.45 kgKaren Hemmer PA Work Phone: [facility] CareBnhqjnrjfp87-08-8418 11:11-0400Diastolic blood eemaprft83 mm[Hg]Sandy Hemmer PA Work Phone: [facility] CareTgteftpjqd02-30-5016 11:11-0400Heart rate75 /min Sandy Hemmer PA Work Phone: [facility] CareHpywkutnvv11-19-3040 11:11-0400Respiratory rate16 /minSandy Hemmer PA Work Phone: 1(978)[facility]-8048[facility] CareIpfzwxzoyf11-27-5981 11:11-1531ZcJ5% (BldA) [Mass fraction]99 %Sandy Hemmer PA Work Phone: [facility] CareLlbdumfrrl52-06-8501 11:11-0400Systolic blood esmhjanv203 mm[Hg]Sandy Hemmer PA Work Phone: [facility] CareKaiuvofpai72-28-8548 13:37-0400Body .5 Marysol Hagen MD Work Phone: 1(991)270-[address] [place], [place] [address]Anafqaqkge24-90-6073 13:37-0400Body mass index (BMI) [Ratio]34.93 kg/g0KfhyfGiovani Hagen MD Work Phone: 1(507)281-[address] [place], [place] [address]Oekkxzadfd78-59-7544 13:37-0400Body abjvoy27.64 kgGiovani Hagen MD Work Phone: [facility] CareRokbdmznwr61-31-2839 13:37-0400Diastolic blood rlqudqdv77 mm[Hg]Giovani Hagen MD Work Phone: 1(452)[facility]-[address] [place], [place] [address]Lvcbgaojil51-08-8023 13:37-0400Heart rate88 /min Giovani Hagen MD Work Phone: [facility] CareSyczdfwhrz04-42-3869 13:37-1014XjU9% (BldA) [Mass fraction]98 %Giovani Hagen MD Work Phone: NOThe [facility] LouisAkvdqdgmun68-81-2011 13:37-0400Systolic blood fijocjmb427 mm[Hg]Giovani Hagen MD Work Phone: [facility] CareUbujbjfzcd18-75-6575 16:21-0400Body gjudpv469.5 cmMarc Dolce DPM FACFAS Work Phone: [phone] CareBpunpenikw22-28-8244 16:21-0400Body mass index (BMI) [Ratio]33.65 kg/m2Marc Dolce DPM FACFAS Work Phone: [phone] CareAexwkryswm15-51-7609 16:21-0400Body ytgumt99.46 kgMarc Dolce DPM FACFAS Work Phone: [phone] CareFpifpfhezc88-98-2157 16:21-0400Diastolic blood peepoyjl74 mm[Hg]Milton Dolce DPM FACFAS Work Phone: 1()[facility]7731[facility] CareMqxzvouxzh44-60-1738 16:21-0400Heart rate87 /min Milton Dolce DPM FACFAS Work Phone: [facility] CareIvlzheroiy61-76-8830 16:21-0400Systolic blood dmxypnei674 mm[Hg]Milton Dolce DPM FACFAS Work Phone: [phone] CareCztrluzken21-15-6883 15:13-0400Body ixkgju251.5 Marysol Hagen MD Work Phone: [facility] CareHnnxkiyaon77-74-5686 15:13-0400Body mass index (BMI) [Ratio]33.65 kg/y3FhlylGiovani Hagen MD Work Phone: [facility]The [facility] LouisQtqkfeywfa41-79-6042 15:13-0400Body .46 kgGiovani Hagen MD Work Phone: [facility] CareMiejrtwcen65-86-3722 15:13-0400Diastolic blood rbcwqext99 mm[Hg]Giovani Hagen MD Work Phone: [facility] CareWqehslttch94-30-1297 15:13-0400Heart ykon640 /min Giovani Hagen MD Work Phone: [facility] CareYimnxvhimp37-39-7685 15:13-2582JtU5% (BldA) [Mass fraction]97 %Giovani Hagen MD Work Phone: [facility] CareQgdgzvyshr70-73-3344 15:13-0400Systolic blood goushnen496 mm[Hg]Giovani Hagen MD Work Phone: [facility] CareXnmrzcdcan87-26-2395 16:14-0400Body wjfhqe158.5 cmMarc Dolce DPM FACFAS Work Phone: 1([phone])[address] [place], [place] 2310604-30-2025 16:14-0400Body mass index (BMI) [Ratio]34.2 kg/m2Marc Dolce DPM FACFAS Work Phone: [phone])[address] [place], [place] 2310604-30-2025 16:14-0400Body zqkncy47.82 kgMarc Dolce DPM FACFAS Work Phone: [phone] [place], [place] [address] CareAcibjlredv16-78-5100 16:14-0400Diastolic blood mm[Hg]Milton Fraire DPM FACFAS Work Phone: [phone] [place], [place] [address] CareUgvrzqiqhz21-83-9486 16:14-0400Heart rate80 /min Milton Fraire DPM FACFAS Work Phone: [phone] [place], [place] 2310604-30-2025 16:14-0400Systolic blood nlztvuaf150 mm[Hg]Milton Corneliusce DPM FACFAS Work Phone: [phone] [place], [place] 2310604-28-2025 08:48-0400Body lnamds97.11 kgGiovani Hagen MD Work Phone: [facility]04-28-2025 07:30-0400 Body pznlzevfzpf01.1 [degF]Giovani Hagen MD Work Phone: [facility]04-28-2025 07:30-0400 Diastolic blood gjvhwkiz66 mm[Hg]Giovani Hagen MD Work Phone: 1(615)638-[address] [place], [place] 6742504-28-2025 07:30-0400 Heart rate85 /minGiovani Hagen MD Work Phone: 1(921)589-[address] [place], [place] 6[address]2504-28-2025 07:30-0400 Respiratory rate18 /minGiovani Hagen MD Work Phone: 1(997)750-[address] [place], [place] 6[address]2504-28-2025 07:30-0400 SaO2% (BldA) [Mass fraction]97 %Giovani Hagen MD Work Phone: [phone])[address]04-28-2025 07:30-0400 Systolic blood mm[Hg]Giovani Hagen MD Work Phone: 1(739)[address]04-25-2025 17:29-0400 Body uycvpo119.48 cmRolamide Hagen MD Work Phone: 1(744)660-[address] [place], [place] 6[address]2504-23-2025 16:39-0400 Body hjjulq705.5 cmMarc Dolce DPM FACFAS Work Phone: [phone] [place], [place] 2310604-23-2025 16:39-0400Body mass index (BMI) [Ratio]34.2 kg/m2Marc Dolce DPM FACFAS Work Phone: [phone] [place], [place] 2310604-23-2025 16:39-0400Body wiffvi46.82 kgMarc Dolce DPM FACFAS Work Phone: 1(219)[address] [place], [place] 2310604-23-2025 16:39-0400Diastolic blood hslwffoo40 mm[Hg]Milton Dolce DPM FACFAS Work Phone: 1(406)[address] [place], [place] 2310604-23-2025 16:39-0400Heart rate82 /min Milton Dolce DPM FACFAS Work Phone: [phone] [place], [place] 2310604-23-2025 16:39-0400Systolic blood mm[Hg]Milton Corneliusce DPM FACFAS Work Phone: 1([phone] [place], [place] 2310604-22-2025 14:57-0400Body veswrd326 cm Solo Carty MD Work Phone: [place] Pipfsj72-09-3573 14:57-0400Body mass index (BMI) [Ratio]31.89 kg/v7OercjnmmSolo Carty MD Work Phone: [place] Cqvqci65-26-7851 14:57-0400Body anndqd15.65 kgSolo Carty MD Work Phone: [place] Zxcmwb92-85-5479 14:57-0400Diastolic blood uyuwkeuv98 mm[Hg]Solo Carty MD Work Phone: [place] Jajhbn27-88-1889 14:57-0400Heart rate92 /min Solo Carty MD Work Phone: [place] Qfpvyn10-31-7494 14:57-0400Systolic blood sporfezo647 mm[Hg]Solo Carty MD Work Phone: [place] Bbqrye40-48-8497 14:31-0400Body cgtqyt799.5 Marysol Hagen MD Work Phone: [place] [address]Hyjayqeqjy77-46-9894 14:31-0400Body mass index (BMI) [Ratio]34.2 kg/a9ErhioGiovani Hagen MD Work Phone: [place] [address]Eaczqsvpvb80-37-7514 14:31-0400Body .82 kgGiovani Hagen MD Work Phone: [phone] [address]Mlcwoyuqot22-23-0378 14:31-0400Diastolic blood amezdpzo34 mm[Hg]Giovani Hagen MD Work Phone: [place] [address]Lctxsxihqc38-04-1491 14:31-0400Heart rate85 /min Giovani Hagen MD Work Phone: [place] [address]Isgruoemdt37-84-2352 14:31-7096ZoU9% (BldA) [Mass fraction]100 %Giovani Hagen MD Work Phone: [place] [address]Xezbessoey06-97-0465 14:31-0400Systolic blood dnntjgsa936 mm[Hg]Giovani Hagen MD Work Phone: [facility] LouisDxgfafjlql55-82-6252 16:04-0400Body oxpydv529.5 cmMarc Dolce DPM FACFAS Work Phone: [facility] CareWnavdswise06-01-1038 16:04-0400Body mass index (BMI) [Ratio]34.75 kg/m2Marc Dolce DPM FACFAS Work Phone: [facility] CareVfjaebxtmg55-58-4237 16:04-0400Body mhfiwc24.18 kgMarc Dolce DPM FACFAS Work Phone: [facility] CareZqmkjhktjn11-73-9600 16:04-0400Diastolic blood ufticagl25 mm[Hg]Milton Fraire DPM FACFAS Work Phone: [facility] CareSesanpzedm72-96-7686 16:04-0400Heart lrkh507 /min Milton Fraire DPM FACFAS Work Phone: [facility] CareIhpjpbkxpf10-13-9526 16:04-0400Systolic blood intqagvd620 mm[Hg]Milton Fraire DPM FACFAS Work Phone: [facility] CareTnhinifbgm57-34-9201 09:45-0400Body bhlaip509.8 cmJavy Boudreaux MD Work Phone: [facility]03-19-2025 09:45-0400Body mass index (BMI) [Ratio]34.2 kg/m2Javy Boudreaux MD Work Phone: [facility]03-19-2025 09:45-0400Body qbiwge51.18 kgJavy Boudreaux MD Work Phone: [phone]03-19-2025 09:45-0400Diastolic blood mm[Hg]Javy Boudreaux MD Work Phone: [facility]03-19-2025 09:45-0400Heart jkkz179 /minJavy Boudreaux MD Work Phone: [facility]03-19-2025 09:45-0400Systolic blood kbjlslen698 mm[Hg]Javy Boudreaux MD Work Phone: [facility]03-13-2025 15:30-0400Body bongdh853.5 cmRolamide Hagen MD Work Phone: [place] [address]Dcnmrxojzg96-49-4770 15:30-0400Body mass index (BMI) [Ratio]34.75 kg/b5JhdjwGiovani Hagen MD Work Phone: [place] [address]Vlxcvmfoia19-04-0736 15:30-0400Body fuspie17.18 kgGiovani Hagen MD Work Phone: [place] [address]Okpulbgiff59-18-0917 15:30-0400Diastolic blood aapkgjos38 mm[Hg]Giovani Hagen MD Work Phone: [place] [address]Iqctanajpb71-75-4367 15:30-0400Heart unqv028 /min Giovani Hagen MD Work Phone: [place] [address]Tbccydthog82-49-1519 15:30-7699FdD0% (BldA) [Mass fraction]98 %Giovani Hagen MD Work Phone: [place] [address]Gewcfqnjkg27-59-3309 15:30-0400Systolic blood tuvpqbdg432 mm[Hg]Giovani Hagen MD Work Phone: [facility] CareAtavxnjygt13-94-9010 14:55-0400Body qwuxbt283.5 cmMarc Dolce DPM FACFAS Work Phone: [facility] CareUxlmvftvge15-28-2901 14:55-0400Body mass index (BMI) [Ratio]34.93 kg/m2Marc Dolce DPM FACFAS Work Phone: [place] [phone] 14:55-0400Body osatsf52.64 kgMarc Dolce DPM FACFAS Work Phone: [place] [phone] 14:55-0400Diastolic blood zalajidr72 mm[Hg]Milton Dolce DPM FACFAS Work Phone: [facility] CareYibpqagjwb88-42-7545 14:55-0400Heart rate88 /min Milton Dolce DPM FACFAS Work Phone: [facility] CareWgxnyoldrd61-07-5965 14:55-0400Systolic blood qgfjviiz011 mm[Hg]Milton Fraire DPM FACFAS Work Phone: [facility] CareYdwcrwvxdm49-52-4030 15:00-0500Body .5 cmMarc Dolce DPM FACFAS Work Phone: [facility] CareNxoinzpaee70-90-2288 15:00-0500Body mass index (BMI) [Ratio]34.93 kg/m2Marc Dolce DPM FACFAS Work Phone: [facility] CareUghnrswpfg21-68-8537 15:00-0500Body ymupaq19.64 kgMarc Dolbran DPM FACFAS Work Phone: [phone])[phone] [place], [place] [address]Zjgcjkalsf35-59-4660 15:00-0500Diastolic blood mm[Hg]Milton Fraire DPM FACFAS Work Phone: [phone] [place], [place] [address]Eapqrtizlb36-31-2520 15:00-0500Heart rate88 /min Milton Fraire DPM FACFAS Work Phone: [facility] CareYdtoafhiva02-04-4012 15:00-0500Systolic blood goqxunjd347 mm[Hg]Milton Fraire DPM FACFAS Work Phone: [facility] [facility] CareTgukzjbubq89-62-1458 14:38-0500Body mass index (BMI) [Ratio]34.9 kg/i1Eugvh Matty DO Work Phone: [facility] CareAgtsnrairz96-90-9044 14:38-0500Body .55 kgCorey Matty DO Work Phone: [facility] CareHhpnjsmfpc91-57-4476 14:38-0500Diastolic blood qyepcgdd47 mm[Hg]Darwin Matty DO Work Phone: [facility] CareSgytwgwrau54-01-3283 14:38-0500Systolic blood mm[Hg]Darwin Matty DO Work Phone: [facility] CareWzomkszfzc60-95-8346 14:37-0500Body gxpoap233.5 cmNicholas Brown DPM Work Phone: [facility]The [facility] LouisFlpdtioyzr14-07-0152 14:37-0500Body mass index (BMI) [Ratio]35.85 kg/c6LkginsemPrateek Pitts DPM Work Phone: noThe [facility] LouisVavxejswmv18-52-6463 14:37-0500Body ibsvau82.91 kgPrateek Pitts DPM Work Phone: [facility] CareCuynjlesyo41-31-3958 14:37-0500Respiratory rate18 /minPrateek Pitts DPM Work Phone: noThe [facility] LouisBvhahizaou54-86-1213 15:42-0500Body ptbojk351.5 Marysol Hagen MD Work Phone: [facility]The [facility] LouisBxnwasmwjv39-16-4555 15:42-0500Body mass index (BMI) [Ratio]35.85 kg/u7FqafhGiovani Hagen MD Work Phone: [facility] CareDlywtrozuy27-24-8544 15:42-0500Body ycsltg68.91 kgGiovani Hagen MD Work Phone: [facility] LouisNlacnrztzz15-50-5257 15:42-0500Diastolic blood agrbdwlv10 mm[Hg]Giovani Hagen MD Work Phone: [facility] LouisXhodvawwrc02-37-5168 15:42-0500Heart rate96 /min Giovani Hagen MD Work Phone: [facility] LouisHmaipmqcrx67-41-4347 15:42-4221KrE7% (BldA) [Mass fraction]99 %Giovani Hagen MD Work Phone: [facility] LouisWuaossgoxk93-73-7757 15:42-0500Systolic blood hdgdhatn129 mm[Hg]Giovani Hagen MD Work Phone: [facility] LouisYfujdtfwvh29-77-8222 13:49-0500Body mass index (BMI) [Ratio]35.81 kg/m2Ayleen JUSTICE Work Phone: [facility]The [facility] LouisCtbcgubyew84-95-0214 13:49-0500Body fzoxyp02.81 kgAyleen JUSTICE Work Phone: [facility] CareAikhjtlsar03-67-9897 13:49-0500Diastolic blood qfzufaou26 mm[Hg]Ayleen JUSTICE Work Phone: [facility] CareUwlesqonui69-08-7488 13:49-0500Systolic blood pdjuczwj019 mm[Hg]Ayleen JUSTICE Work Phone: [facility]The [facility] LouisSwssdeqvtc94-23-2798 14:30-0500Diastolic blood rhrgkufl99 mm[Hg]Carol Winn MD Work Phone: [facility] centerand Ddyrcj34-82-5587 14:30-0500Heart utpl653 /minCarol Winn MD Work Phone: [facility] centerand Mztfnn62-05-7504 14:30-0500Respiratory rate 21 /minCarol Winn MD Work Phone: [facility] centerand Hppdai81-07-4835 14:30-9902FyW6% (BldA) [Mass fraction]100 %Carol Winn MD Work Phone: cBer[facility] HospitalCdmewk21-22-9367 14:30-0500Systolic blood mydxjlsg185 mm[Hg]Carol Winn MD Work Phone: cBer[facility] HospitalBftpqg39-73-0269 13:40-0500Body .5 cmCarol Winn MD Work Phone: [facility] centerand Ofatcs67-07-5426 13:40-0500Body mass index (BMI) [Ratio]33.84 kg/m2Carol Winn MD Work Phone: [facility]and Xhtyhb56-40-3492 13:40-0500Body givthd84.92 kgCarol Winn MD Work Phone: [facility]and Nsqxqk02-03-0316 08:50-0500Body qugdmk980.5 cmMarc Dolce DPM FACFAS Work Phone: [facility] CareDeozyncidg50-03-2488 08:50-0500Body mass index (BMI) [Ratio]36.21 kg/m2Marc Dolce DPM FACFAS Work Phone: noThe [facility] LouisIsszinuglh10-03-4069 08:50-0500Body llbyku43.81 kgMilton Adryanbran DPM FACFAS Work Phone: [facility] CareVstzjxllbs40-62-0090 08:50-0500Diastolic blood mm[Hg]Milton Fraire DPM FACFAS Work Phone: [facility] CareYnaumztwoc32-93-7618 08:50-0500Heart rate92 /min Milton Fraire DPM FACFAS Work Phone: [facility] CareUbalszhbvr95-52-3434 08:50-0500Systolic blood kyuhxduk101 mm[Hg]Milton Fraire DPM FACFAS Work Phone: [facility] CareQbtepepqrp98-79-7705 14:55-0500Body obrojs586.5 cmRolamide Hagen MD Work Phone: noThe [facility] LouisEhkdzrxayw72-39-3238 14:55-0500Body mass index (BMI) [Ratio]36.21 kg/y3BlyfqGiovani Hagen MD Work Phone: [facility] CareZlduacoale09-16-6560 14:55-0500Body .81 kgGiovani Hagen MD Work Phone: [facility] LouisTsrzbszmhc13-17-9971 14:55-0500Diastolic blood ezoiecnz69 mm[Hg]Giovani Hagen MD Work Phone: noThe [facility]. LouisZuaziulgoy61-42-1372 14:55-0500Heart ogen957 /min Giovani Hagen MD Work Phone: [facility] LouisWjkefmhssy08-19-0913 14:55-9415NbB1% (BldA) [Mass fraction]96 %Giovani Hagen MD Work Phone: no[facility] LouisZifipoqadj71-93-4567 14:55-0500Systolic blood pcrdglin280 mm[Hg]Giovani Hagen MD Work Phone: no[facility] LouisNerqbhjbeo09-23-1281 15:13-0500Body .5 Jackelin Pitts DPM Work Phone: [facility] CareHdfqiitwja42-17-2507 15:13-0500Body mass index (BMI) [Ratio]35.3 kg/r5MjeaccpcPrateek Pitts DPM Work Phone: [facility] CareShhbmdxnxg47-33-3365 15:13-0500Body .54 kgPrateek Pitts DPM Work Phone: [facility] CareCrssytcoxk39-15-5426 15:13-0500Respiratory rate18 /minPrateek Pitts DPM Work Phone: [facility] CareKlkbvqvmep98-64-5504 15:10-0500Body mass index (BMI) [Ratio]35.12 kg/c4Remqp Matty DO Work Phone: [facility] CareKyexyzlxuc13-24-1959 15:10-0500Body .09 kgCorey Matty DO Work Phone: [facility] CareEtmkosugbn81-79-5145 15:10-0500Diastolic blood uphxxhfo34 mm[Hg]Darwin Matty DO Work Phone: [facility] CareUqjsweinkk40-37-7823 15:10-0500Systolic blood ozdcvbku369 mm[Hg]Darwin Matty DO Work Phone: [facility] CareCkxmazyruy19-42-9186 14:12-0500Body mass index (BMI) [Ratio]33.87 kg/y9GqybcxIliana Metcalfraro PA-C Work Phone: [facility] HospitalCsmbmp58-22-5633 14:12-0500Body duoakp43 kg Iliana Metcalfraro PA-C Work Phone: [place] Lvnlzr71-96-1496 14:12-0500Diastolic blood soqlpyfr92 mm[Hg]Iliana Garciaro PA-C Work Phone: [facility] Fqilxm37-41-5745 14:12-0500Heart rate84 /min Iliana Garciaro PA-C Work Phone: [place] Hbisgj32-77-7155 14:12-0500Systolic blood yvcukzmg324 mm[Hg]Iliana Mercado PA-C Work Phone: cBer[facility] HospitalAucmrv25-47-5215 16:42-0500Body mass index (BMI) [Ratio]35.67 kg/r8YkfcnsaJosephine Gilman STONEMASON SUPERVISOR Work Phone: [facility] CareGpaccahhsv51-72-3108 16:42-0500Body temperature 97.7 [degF]Josephine Gilman STONEMASON SUPERVISOR Work Phone: [facility] CareOiyqthlpub32-70-3259 16:42-0500Body fgqnte10.45 kgJosephine Gilman STONEMASON SUPERVISOR Work Phone: [facility] CareLmphjlfigp95-93-8465 16:42-0500Diastolic blood edcftvig40 mm[Hg]Josephine Gilman STONEMASON SUPERVISOR Work Phone: [facility] CareVtlmpfmpgy23-51-9612 16:42-0500Heart xyka363 /min Josephine Gilman STONEMASON SUPERVISOR Work Phone: [facility] HealthcareComment on above:repeat pulse 96bpm apical.04-18-2024 16:42-0500Respiratory rate20 /minJosephine Gilman STONEMASON SUPERVISOR Work Phone: [facility] CareBnqgfnwezp66-02-1818 16:42-2435MdF4% (BldA) [Mass fraction]97 %Josephine Gilman STONEMASON SUPERVISOR Work Phone: [facility] CareFypxtqqjee01-69-0251 16:42-0500Systolic blood xupqzzkp690 mm[Hg]Josephine Gilman STONEMASON SUPERVISOR Work Phone: [facility] CareHuwiqjppgb45-57-0190 10:39-0500Body rkoxnz277.5 Jennifer Lyn STONEMASON SUPERVISOR Work Phone: [facility] CareFyvzutxved79-52-5890 10:39-0500Body mass index (BMI) [Ratio]35.01 kg/x7HhxfgpDeena Lyn STONEMASON SUPERVISOR Work Phone: [facility] CareIbxtthpmcd07-48-2089 10:39-0500Body jaomwd60.82 kgDeena Lyn STONEMASON SUPERVISOR Work Phone: [facility] CarePioykpyoub82-75-0060 10:39-0500Diastolic blood oeucmxwm76 mm[Hg]Deena Lyn STONEMASON SUPERVISOR Work Phone: NOThe [facility] LouisMngymimtoh81-26-1025 10:39-0500Heart vnlh806 /min Deena Lyn STONEMASON SUPERVISOR Work Phone: [facility] CareFdjuhtvakg53-15-5222 10:39-0500Respiratory rate16 /minScole Riki STONEMASON SUPERVISOR Work Phone: [facility] CareZxybnvjqcx41-81-0779 10:39-6366GeG9% (BldA) [Mass fraction]99 %Deena Lyn STONEMASON SUPERVISOR Work Phone: [facility] CareSqipocadtc08-97-7112 10:39-0500Systolic blood dyqenyhv485 mm[Hg]Deena Lyn STONEMASON SUPERVISOR Work Phone: [facility] CareBmxlyjidwh16-13-4443 08:40-0500Body .5 cmRolamide Hagen MD Work Phone: [facility] CareOwizdvtoig65-27-5494 08:40-0500Body mass index (BMI) [Ratio]34.39 kg/q0TdvczGiovani Hagen MD Work Phone: [facility] CareSqmkkcorsd23-60-3078 08:40-0500Body kxsjyk40.28 kgGiovani Hagen MD Work Phone: [facility] CareNrpwcicmlw72-54-1808 08:40-0500Diastolic blood mm[Hg]Giovani Hagen MD Work Phone: [facility] CareSanvqsvmlk62-48-5759 08:40-0500Heart rate88 /min Giovani Hagen MD Work Phone: [facility] CareByikbhqzgx08-05-6403 08:40-2475CqV6% (BldA) [Mass fraction]94 %Giovani Hagen MD Work Phone: [facility] CarePkkkhvaxmj44-48-0331 08:40-0500Systolic blood olcbrjsb089 mm[Hg]Giovani Hagen MD Work Phone: [facility] CareWashulqprf76-84-7444 16:29-0500Body mass index (BMI) [Ratio]34.93 kg/a5Eawex Matty DO Work Phone: [facility] CareCqdtgiivtz84-87-1260 16:29-0500Body afbrpx39.64 kgCorey Matty DO Work Phone: [facility] CareHtkunrcygb27-42-2713 16:29-0500Diastolic blood rrtjwevu80 mm[Hg]Darwin Matty DO Work Phone: [facility] CareBazbtoekta98-68-8378 16:29-0500Systolic blood ptahwaqk242 mm[Hg]Darwin Matty DO Work Phone: [phone] [place], [place] [address]Gorsslnvgo41-64-1802 09:14-0400Body rsrkoz698.5 Marysol Hagen MD Work Phone: [facility] CareGrwwppscdp14-79-4498 09:14-0400Body mass index (BMI) [Ratio]34.93 kg/i9GmhuvGiovani Hagen MD Work Phone: [phone] [place], [place] [address]Snjinckscx22-14-9267 09:14-0400Body mdspaa98.64 kgGiovani Hagen MD Work Phone: [facility] CareYlntvzmaxl76-91-9149 09:14-0400Diastolic blood shpgnarf65 mm[Hg]Goivani Hagen MD Work Phone: [phone] [place], [place] [address]Xclgoiltla18-69-8460 09:14-0400Heart kdpc996 /min Giovani Hagen MD Work Phone: [phone] CareQphoedgibx20-12-8739 09:14-0240GyP8% (BldA) [Mass fraction]99 %Giovani Hagen MD Work Phone: [facility] CareQxvogrluto92-74-3272 09:14-0400Systolic blood exvqjyys281 mm[Hg]Giovani Hagen MD Work Phone: [phone])792-[address] [place], [place] [address]Gltpmqhbom66-02-8977 13:37-0400Diastolic blood sjhigoac47 mm[Hg]Darwin Matty DO Work Phone: [facility] CareExvrtwbfuf73-61-4044 13:37-0400Systolic blood chfoupps241 mm[Hg]Darwin Matty DO Work Phone: NOThe [facility]. LouisFdifsavgwi46-38-2759 16:00-0400Body obtdxm380.5 Marysol Hagen MD Work Phone: [facility] CareVptepeqpgl88-51-7436 16:00-0400Body mass index (BMI) [Ratio]34.75 kg/d0TgbasGiovani Hagen MD Work Phone: [facility] CareBxnpyvwphj01-32-9218 16:00-0400Body xobmpg35.18 kgGiovani Hagen MD Work Phone: [place] [address]Rvemcmxvji42-78-1796 16:00-0400Diastolic blood zgufhynx93 mm[Hg]Giovani Hagen MD Work Phone: [place] [address]Yduhhxcrnv78-36-1118 16:00-0400Heart rate96 /min Giovani Hagen MD Work Phone: [place] [address]Gwactaymzv89-66-9221 16:00-2049RsG7% (BldA) [Mass fraction]98 %Giovani Hagen MD Work Phone: [facility] CareJlomlcbney45-28-2174 16:00-0400Systolic blood uzdpywlf609 mm[Hg]Giovani Hagen MD Work Phone: [place] [address]Miaftzjdzz88-48-1193 15:17-0400Blood Pressure LocationJENNIFER OLEG [facility]09-05-2024 15:17-0400Diastolic blood hbhrvipn409 mm[Hg]BHAVESH OLEG [facility] [place] [address]-05-2024 15:17-0400Heart cwwh849 /minJENNIFER OLEG [facility] [place] [address]-05-2024 15:17-0400Respiratory rate18 /minJENNIFER OLEG [facility] [place] [address]-05-2024 15:17-0400Systolic blood rjliehny698 mm[Hg]BHAVESH DEJESUS [facility]09-03-2024 15:07-0400Body qixhhi938.5 Marysol Hagen MD Work Phone: [facility]The [facility] LouisKcvlkfswkw20-64-7802 15:07-0400Body mass index (BMI) [Ratio]34.2 kg/f3BnfhyGiovani Hagen MD Work Phone: [facility] CarePssbeiqgnc02-95-0832 15:07-0400Body wcntyz64.82 kgGiovani Hagen MD Work Phone: [facility] LouisRtybxwfewm48-06-1801 15:07-0400Diastolic blood ecrjwzsl03 mm[Hg]Giovani Hagen MD Work Phone: [facility] CareIetzbghyaf13-76-2564 15:07-0400Heart rate98 /min Giovani Hagen MD Work Phone: [facility] CareGtwswpuugl48-86-2345 15:07-4589NrU6% (BldA) [Mass fraction]98 %Giovani Hagen MD Work Phone: [facility] LouisTnuehwfcht83-41-1880 15:07-0400Systolic blood rkearxtz479 mm[Hg]Giovani Hagen MD Work Phone: [facility] LouisVduoortvuq05-86-4316 15:01-0400Body cqsoyu046.5 cmAdell Carty MD Work Phone: [place] Ahagau92-51-2348 15:01-0400Body mass index (BMI) [Ratio]34.39 kg/n8IyoaewaoSolo Carty MD Work Phone: [place] Emisfv00-99-0323 15:01-0400Body .28 kgSolo Carty MD Work Phone: [phone] Ayjruv61-91-8361 15:01-0400Diastolic blood ckiieuvk61 mm[Hg]Solo Carty MD Work Phone: [phone] HospitalAaiamr66-24-0602 15:01-0400Heart rate94 /min Sloo Carty MD Work Phone: [phone] centerand Ojzjyj42-03-4061 15:01-0400Systolic blood xyhfbskb722 mm[Hg]Solo Carty MD Work Phone: [phone] centerand Ziiaqa02-92-4931 13:10-0400Body qewuky438.5 cmSamuel Freeman MD Work Phone: [phone] HospitalRwaopr00-51-5233 13:10-0400Body akrzlm77 kg Samuel Freeman MD Work Phone: [phone] HospitalRyqlla16-71-0333 13:10-0400Diastolic blood qchegghp67 mm[Hg]Samuel Freeman MD Work Phone: [phone] HospitalAedcfs45-67-5843 13:10-0400Heart xtjf717 /minSamuel Freeman MD Work Phone: [phone] centerand Wyzjcp11-29-0426 13:10-0400Systolic blood dbowqtdh114 mm[Hg]Samuel Freeman MD Work Phone: [phone] HospitalSxinde18-61-4512 15:30-0400Diastolic blood ujkipqah44 mm[Hg]Carol Winn MD Work Phone: cBer[facility] HospitalWqzahy15-69-3503 15:30-0400Heart rate99 /min Carol Winn MD Work Phone: [facility] centerand Lktmsn95-41-1760 15:30-0400Respiratory rate 24 /minCarol Winn MD Work Phone: [facility] centerand Mxsmte50-92-5393 15:30-2620FfI8% (BldA) [Mass fraction]97 %Carol Winn MD Work Phone: cBerger HospitalOejuvi20-95-5856 15:30-0400Systolic blood touqbowk048 mm[Hg]Carol Winn MD Work Phone: cBerger HospitalOmukoe90-63-6089 14:10-0400Body adsggh107.5 cmCarol Winn MD Work Phone: c[facility] HospitalEgdglv12-71-1338 14:10-0400Body mass index (BMI) [Ratio]33.84 kg/m2Carol Winn MD Work Phone: cBerger HospitalFkoksh40-19-6242 14:10-0400Body .92 kgCarol Winn MD Work Phone: 1(462)[phone] [place], [place] 5465303-09-2023 12:40-0500Diastolic blood aczxdwwa60 mm[Hg]Carol Winn MD Work Phone: 1(267)[phone] [place], [place] 5465303-09-2023 12:40-0500Heart rate70 /min Carol Winn MD Work Phone: [phone])[phone] [place], [place] 5465303-09-2023 12:40-0500Respiratory rate 12 /minCarol Winn MD Work Phone: [phone])[phone] [place], [place] 5465303-09-2023 12:40-4562OxY7% (BldA) [Mass fraction]100 %Carol Winn MD Work Phone: cBerger HospitalMdgqii37-00-4148 12:40-0500Systolic blood biszeoqs084 mm[Hg]Carol Winn MD Work Phone: [phone])[phone] [place], [place] 5465303-09-2023 11:18-0500Body jtigkg332.5 cmCarol Winn MD Work Phone: cBer[facility] HospitalVizvph81-76-0478 11:18-0500Body mass index (BMI) [Ratio]33.84 kg/m2Carol Winn MD Work Phone: cBerger HospitalTwwben13-25-8156 11:18-0500Body yiyrsz52.92 kgCarol Winn MD Work Phone: cBer[facility] HospitalFjbnbo05-20-8711 11:29-0500Body uqfavy59.73 kgCarol Winn MD Work Phone: cBer[facility] HospitalWrbuha98-94-7341 11:29-0500Diastolic blood ywqrumfo53 mm[Hg]Carol Winn MD Work Phone: [facility] centerand Ubofve45-49-1543 11:29-0500Heart kiwf448 /Ritu Winn MD Work Phone: [place] Gmpxxu23-58-2926 11:29-0500Systolic blood kdjialpa499 mm[Hg]Carol Winn MD Work Phone: [facility] centerand Tuhpqx33-44-5446 15:30-0500Body jysyox427.75 cmImad Asaad Other [place] Other 01-10-2023 15:30-0500Body mass index (BMI) [Ratio] 34.55 kg/m2Imad Asaad Other [place] Other 01-10-2023 15:30-0500Body meobox72.09 kgImad Asaad Other [place] Other 01-10-2023 15:30-0500Diastolic blood cptdutnx37 mm[Hg] Imad Asaad Other [place] Other 01-10-2023 15:30-0500Systolic blood zevqwvsy940 mm[Hg] Imad Asaad Other [place] Other 01-10-2023 14:47-0500Body weight0 kgMD Giovani Hagen Work Phone: [facility] Encounters Encounter DateEncounter TypeCare ProviderFacilityStart: 69-27-2004cvqduadtmu Iliana TannaFacility:EU BellevueStart: 02-27-2025 End: 62-24-2276UquzxrKxswc M Hemmer PA Work Phone: NOEdward P. Boland [facility] Affairs Medical CenternceComment on above:Attention deficit hyperactivity disorder (ADHD), predominantly inattentive type; Bipolar disorder, in partial remission, most recent episode manic (HCC); Agoraphobia with panic attacksStart: 10-31-4866lhmvvhoeihHKAIN MABALAY HIEU [facility]tart: 02-18-2025 End: 80-23-7465rhbgntlfnkVIUNY KARYNNELL J. [facility]FIELD [facility] HOSPITALY ALDAFacility:[facility] Start: 02-17-2025 End: 61-21-3122ngesieudjtQKCBH MABBELENY ALDAFacility:[facility]ertart: 02-17-2025 End: 87-41-4518qjgwszjjdtGQPJP KARYNNELL J. REDFIELD MEMORIAL HOSPITALY ALDAFacility:[facility] Start: 02-13-2025 End: 44-32-2926Vpfwbtknd encounterJatin Parisi MD Work Phone: [facility] NeurologyStart: 02-12-2025 End: 64-77-5715cwiuleitcfLLYX D DOLCENot AvailableStart: 02-12-2025 End: 58-59-0022Pbytfz outpatient visit 15 minutesMarc D Dolce DPM FACFAS Work Phone: noms [facility] PODComment on above:Foot drop, left (Primary Dx); Other synovitis and tenosynovitis, right ankle and foot; Sprain of anterior talofibular ligament of right ankle, subsequent encounter; Other enthesopathy of right foot and ankleStart: 02-12-2025 End: 87-28-7344Caxguh flowsheetMarc D Dolce DPM FACFAS Work Phone: [facility] CentertownStart: 02-12-2025 End: 32-14-4440Ohgzhh flowsheetMarc D Dolce DPM FACFAS Work Phone: noms [facility]axahachiewnStart: 02-06-2025 End: 46-00-8703Adpynncgg Result EncounterGeneric External Data ProviderNOMS External Department UnsolicitedStart: 02-06-2025 End: 00-69-5844Lmatjcanl Result EncounterGeneric External Data ProviderNOMS External Department UnsolicitedStart: 01-22-2025 End: 51-50-3923JkvpcxExuvy M Hemmer PA Work Phone: noms Isidro Scott MedinceComment on above:Attention deficit hyperactivity disorder (ADHD), predominantly inattentive type; Bipolar disorder, in partial remission, most recent episode manic (HCC); Agoraphobia with panic attacksStart: 58-83-3201szlceiusemZPGTV M ALDAMercy Theodosia HospitalStart: 01-18-2025 End: 07-39-1905WkohxcBawcl M Alda MD Work Phone: noms Isidro Scott MedinceComment on above:Major depressive disorder, recurrent, moderate (HCC)Start: 01-15-2025 End: 62-88-7940Dcsrcs outpatient visit 15 minutesMarc D Dolce DPM FACFAS Work Phone: noms [facility] PODComment on above:Other synovitis and tenosynovitis, right ankle and foot (Primary Dx); Other enthesopathy of right foot and ankleStart: 01-15-2025 End: 49-80-6738lbdwgpdkagKKSN D DOLCENot AvailableStart: 01-14-2025 End: 78-60-2649biyhroudnsFDTPTXH W BAUERNot AvailableStart: 34-50-1796lgvtyiaxwi GIOVANI Bob ALONSOYaditoribio [facility] HospitalStart: 01-13-2025 End: 42-24-5749Wkluqzgii encounterGiovani Hagen MD Work Phone: noms Isidro Scott MedinceStart: 01-09-2025 End: 97-26-2823Fvyxhtxtv Result Charity Hagen MD Work Phone: noms External Department UnsolicitedStart: 01-09-2025 End: 80-19-4676Fxnjsblls Result EncounterGiovani Hagen MD Work Phone: noms External Department UnsolicitedStart: 01-08-2025 End: 19-58-0428jfbrrhvvqaHEIDD MABALAY ALDAFacility:[facility] Start: 01-06-2025 End: 75-88-8599Cgpdfm flowsYnes Hagen MD Work Phone: noms Isidro Scott MedinceStart: 01-06-2025 End: 94-99-9963Xbwkpu flowsYnes Hagen MD Work Phone: noms Isidro Scott MedinceStart: 01-06-2025 End: 99-86-3773yowrcurasdKzv ProviderCardiologyComment on above:TestingStart: 01-06-2025 End: 46-18-8691Saqorlt encounter statusGiovani Hagen MD Work Phone: [facility] Work Phone: Start: 01-06-2025 End: 58-28-9161Fnianafz preventive med est patient 18-39 yrsGiovani Hagen MD Work Phone: noms Isidro Scott MedinceComment on above:Well adult health check (Primary Dx); Chest pain, unspecified type; Elevated liver enzymes; Type 2 diabetes mellitus without complication, without long-term current use of insulin (HCC)Start: 12-31-2024 End: 46-36-1714zkgwycrybhKaknvd TannaFacility:[facility] [place]vueStart: 12-31-2024 End: 90-68-7754Hiatlll encounter procedureIliana Cramer [facility] start: 12-30-2024 End: 10-68-5351nlsmdepxqpUanturn R WATERSFacility:EU [place]vueStart: 12-30-2024 End: 69-55-8651Brlaup flowsheetMarc D Dolce DPM FACFAS Work Phone: [facility] AustintownStart: 12-30-2024 End: 14-79-9646Eughct flowsheetMarc D Dolce DPM FACFAS Work Phone: n[facility] AustintownStart: 12-30-2024 End: 24-67-3654Bfmbin outpatient visit 15 minutesMarc D Adryance DPM FACFAS Work Phone: noms [facility] PODComment on above:Other synovitis and tenosynovitis, right ankle and foot (Primary Dx); Right foot pain; Other enthesopathy of right foot and ankleStart: 12-30-2024 End: 76-96-3699fhvsqmycmmKWVE D DOLCENot AvailableStart: 12-30-2024 End: 53-88-6632Yfbqths encounter Lizabeth Romero APRN.CNP Work Phone: GynecologyComment on above:Chronic pelvic pain in female (Primary Dx); Other specified dyspareunia; Pelvic pain in female; High-tone pelvic floor dysfunction; Vulvodynia; Stress incontinence; Irritable bowel syndrome with constipation; Vaginal drynessStart: 12-30-2024 End: 37-17-1415cywjdfryriJSGZA MABALAY ALDAFacility:[facility] Start: 12-26-2024 End: 66-14-4422Vplkmi outpatient visit 25 minutesJatin Parisi MD Work Phone: [facility]oms [facility] NeurologyComment on above:Lumbar radiculopathy (Primary Dx); Numbness and tingling; Atypical migraineStart: 12-26-2024 End: 97-80-0322ejcrlwnywhSYEIERA W BAUERNot AvailableStart: 12-16-2024 End: 73-43-0223Nfjydfqlo encounterSandy JUSTICE Work Phone: noms [facility] MedinceComment on above:dose correction on medStart: 12-16-2024 End: 27-09-6792Illixt outpatient visit 25 minutesGiovani Hagen MD Work Phone: noms [facility] MedinceComment on above:Nonalcoholic steatohepatitis (ENGLISH) (Primary Dx); PTSD (post-traumatic stress disorder) ; Major depressive disorder, recurrent, moderate (HCC); Lumbar radiculopathy; Weight gain; Borderline diabetes; Morbid (severe) obesity due to excess calories ([facility]-H[facility]); Impaired fasting glucose; Obesity, class 2; Body mass index (BMI) 36.0-36.9, adultStart: 12-16-2024 End: 39-15-2191gxrzswztxzMCUVG M Rafael AvailableStart: 12-13-2024 End: 28-88-0121Vargdk outpatient visit 25 minutesMilton Fraire DPM FACFAS Work Phone: noms NMA PODComment on above:Sprain of calcaneofibular ligament of right ankle, initial encounter (Primary Dx); Right foot pain; Other synovitis and tenosynovitis, right ankle and foot; Other enthesopathy of right foot and ankleStart: 12-13-2024 End: 40-23-0220ddcknmdcxlQYEV D DOLCENot AvailableStart: 12-12-2024 End: 03-74-0224Iqcqhklee JUSTICE Work Phone: noms Isidro MedinceStart: 12-12-2024 End: 62-06-0940Ezdowzlee JUSTICE Work Phone: NOYF Isidro Family MedinceStart: 12-12-2024 End: 12-76-6512Pezygkstv Result EncounterSandy JUSTICE Work Phone: NOXW External Department UnsolicitedStart: 12-12-2024 End: 08-43-5817Lfzcph outpatient visit 25 minutesSandy JUSTICE Work Phone: NOLV Isidro Family MedinceComment on above:Elevated liver enzymes (Primary Dx); Nephrocalcinosis; Bilateral nephrolithiasis; Right ovarian cyst; Hypokalemia; Weight gain; Attention deficit hyperactivity disorder (ADHD), predominantly inattentive type ; History of alcohol dependence (HCC); Impaired fasting glucose; Other fatigue; Anxiety; Other chronic painStart: 12-12-2024 End: 60-56-2394rlljqruweyHEBIHRich Conti AvailableStart: 12-09-2024 End: 22-68-7879wbjgdeijmqRIEP DOLCENot AvailableStart: 10-30-2024 End: 77-65-8463GekrvyImqevMaria Esther JUSTICE Work Phone: NOXB CI FMComment on above:Anxiety; Bipolar disorder, in partial remission, most recent episode manic (HCC)Start: 10-23-2024 End: 40-89-9622Vliqzesnh Result EncounterGeneric External Data ProviderNOMS External Department UnsolicitedStart: 10-23-2024 End: 04-43-1665Dwxuycwoe Result EncounterGeneric External Data ProviderNOMS External Department UnsolicitedStart: 04-78-7803gbfpymwmpfPGXPE [facility]ABALAY HIEU [facility] End: 39-69-1351Fgpbihtovl hospital visit by physicianGeneral Iona Matt Mc Work Phone: RadiologyComment on above:Pelvic floor dysfunction [M62.89]Start: 10-21-2024 End: 99-39-1517Mdxvrjulu Result EncounterShannon Ochoa NP Work Phone: noms External Department UnsolicitedStart: 10-21-2024 End: 16-76-6605Ihdcritrn Result EncounterShannon Ochoa STONEMASON SUPERVISOR Work Phone: noms External Department UnsolicitedStart: 10-21-2024 ambulatoryMARIO HARPERFacility:[facility]art: 10-21-2024 End: 19-82-5787Llniiknyau hospital visit by physicianArron [facility] Work Phone: [facility] Radiology GeneralComment on above:Pelvic floor dysfunction [M62.89]Start: 10-15-2024 End: 01-86-2872ktjtoogkafFGDAQ MABBELENY ALDANot AvailableStart: 10-15-2024 End: 12-51-4089Qgjkbnbjj to same day surgery Moustapha Harper APRN.CNP Work Phone: Copaulaectal SurgeryStart: 10-15-2024 End: 43-05-5326Jbsegel encounter procedureMario Harper APRN.CNP Work Phone: [facility]erectal SurgeryStart: 10-11-2024 End: 34-81-3168diqbogtgxbKqpg Jackson PT, DPT Work Phone: [facility] Physical TherapyStart: 10-11-2024 End: 65-28-7518Eutkfbx encounter Erika Rock PT, DPT Work Phone: [facility] Physical TherapyComment on above:Muscle spasm (Primary Dx); Pelvic floor dysfunction; Chronic constipationStart: 10-11-2024 End: 50-85-4099zbsgkjhjbgIBJZK MABALAY ALDAFacility:[facility] Start: 10-10-2024 End: 28-51-2417Mtaekl flowsBlu Ochoa STONEMASON SUPERVISOR Work Phone: noms NEUROLOGYStart: 10-10-2024 End: 66-55-4016Ujpyju flowsBlu Ochoa STONEMASON SUPERVISOR Work Phone: noms NEUROLOGYStart: 10-10-2024 End: 17-28-9635Jzvbhe outpatient new 45 minutesShannon Ochoa STONEMASON SUPERVISOR Work Phone: noms [facility] NEURO 210Comment on above:Numbness and tingling (Primary Dx); Atypical migraineStart: 10-10-2024 End: 59-29-9541jmpnhpztyrKOEVUKWYZESadi Blair AvailableStart: 10-09-2024 End: 15-72-9039Vrtkaen encounter Juan Harper APRN.OXIDATION ENGINEER Work Phone: Colorectal SurgeryComment on above:Pelvic floor dysfunction (Primary Dx); Chronic constipation; GastroparesisStart: 10-09-2024 End: 83-94-9353ishxpsyzqjRMHPE MABALAY ALDAFacility:[facility] Start: 10-08-2024 End: 25-62-1780Yugqav Andry Lyn STONEMASON SUPERVISOR Work Phone: NOMS CI FMStart: 10-08-2024 End: 08-35-0604Lkngqk Andry Lyn STONEMASON SUPERVISOR Work Phone: NOMS CI FMStart: 10-08-2024 End: 16-42-5942CqercrLnlxbe M Shively STONEMASON SUPERVISOR Work Phone: NOMS CI FMComment on above:Attention deficit hyperactivity disorder (ADHD), predominantly inattentive type ; Bipolar disorder, in partial remission, most recent episode manic (HCC); Agoraphobia with panic attacksStart: 10-08-2024 End: 28-18-7861Ouwpmq outpatient visit 25 minutesDeena Lyn STONEMASON SUPERVISOR Work Phone: NOMS CI FMComment on above:Numbness and tingling of upper extremity (Primary Dx); Attention deficit hyperactivity disorder (ADHD), predominantly inattentive type ; Bipolar disorder, in partial remission, most recent episode manic (HCC); Agoraphobia with panic attacks ; Numbness and tingling of left side of face; Urinary tract infection without hematuria, site unspecified; Inflammation and stiffening of spine; Mild intermittent asthma without complication (HCC)Start: 10-01-2024 End: 32-21-8955Dbqkdxipc encounterNokerry Winn MD Work Phone: GastroenterologyStart: 09-25-2024 End: 92-99-0877Yqvblc Andry Lyn STONEMASON SUPERVISOR Work Phone: NOMS CI FMStart: 09-25-2024 End: 09-94-8465Fkgmyu Andry Lyn STONEMASON SUPERVISOR Work Phone: NOMS CI FMStart: 09-25-2024 End: 26-84-9357Pjwbie outpatient visit 25 minutesDeena Lyn STONEMASON SUPERVISOR Work Phone: NOMS CI FMComment on above:Extrusion of suture, sequela (Primary Dx)Start: 09-25-2024 End: 07-36-2558eusofmvrfeYOPXTL M SHIVELYNot AvailableStart: 09-17-2024 End: 98-15-2802Zxrjfz Nisha JUSTICE Work Phone: NOMS CI FMStart: 09-17-2024 End: 71-96-6113Xcwdzb Nisha JUSTICE Work Phone: NOMS CI FMStart: 09-17-2024 End: 70-63-5962Aksbmh outpatient visit 15 minutesSandy JUSTICE Work Phone: NOMS CI FMComment on above:Laceration of right knee without complication, sequela (Primary Dx)Start: 09-17-2024 End: 43-27-2398noofxuybzvXHNLA M HEMMERNot AvailableStart: 09-10-2024 End: 69-71-6916Avhire outpatient visit 25 minutesGiovani Hagen MD Work Phone: NOMS CI FMComment on above:Fall in home, sequela (Primary Dx); Laceration of right knee, subsequent encounterStart: 09-10-2024 End: 29-19-8157wustbdtxjdROUSH M ALDANot AvailableStart: 09-04-2024 End: 99-34-4255Etgnkn outpatient visit 15 minutesMarc D Dolce DPM FACFAS Work Phone: NOMS NMA PODComment on above:Sprain of anterior talofibular ligament of right ankle, subsequent encounter (Primary Dx); Right ankle instabilityStart: 09-04-2024 End: 44-50-7452vegxewvfriQSOI D DOLCENot AvailableStart: 09-02-2024 End: 24-14-5414Hiuvex outpatient visit 25 minutesGiovani Hagen MD Work Phone: NOMS CI FMComment on above:Mood swings (Primary Dx); Bipolar disorder, in partial remission, most recent episode manic (CMS/HCC); Anxiety; Sinus tachycardiaStart: 09-02-2024 End: 71-06-9961xmxjspotggSWZES M ALDANot AvailableStart: 08-28-2024 End: 06-41-8490TeiggkGkiyb M Alda MD Work Phone: NOMS CI FMComment on above:Attention deficit hyperactivity disorder (ADHD), predominantly inattentive type (CMS/HCC); Bipolar disorder, in partial remission, most recent episode manic (CMS/HCC); 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CMS/HCC)Obesity (BMI 35.0-39.9 without comorbidity)Start: 08-21-2024 End: 40-37-4664xxlcctcppnLLST D DOLCENot AvailableStart: 08-21-2024 End: 91-51-8554Qrvsif outpatient visit 15 minutesMarc D Dolce DPM FACFAS Work Phone: noms NMA PODComment on above:Sprain of anterior talofibular ligament of right ankle, subsequent encounter (Primary Dx)Start: 08-21-2024 End: 90-35-4080Lobsnz flowsheetMarc D Dolce DPM FACFAS Work Phone: noms ASC PODStart: 08-21-2024 End: 43-64-1390Vezmwl flowsheetMarc D Dolce DPM FACFAS Work Phone: noms ASC PODStart: 70-66-6652Fkw-patient / Non-visit Giovani Hagen MD Work Phone: [facility] Work Phone: Start: 08-16-2024 End: 24-75-7623Awjfmggpek and management of inpatientGiovani Hagen MD Work Phone: [facility] Work Phone: Start: 08-14-2024 End: 14-23-5561kecwngexkiZXPO D DOLCENot AvailableStart: 08-14-2024 End: 52-94-8682Avimss outpatient visit 25 minutesMarc D Dolce DPM FACFAS Work Phone: noMS NMA PODComment on above:Contusion of right ankle, initial encounter (Primary Dx); Peroneal tendon tear, right, initial encounterStart: 08-14-2024 End: 73-51-5624Wvcdgp flowsheetMarc D Dolce DPM FACFAS Work Phone: noms ASC PODStart: 08-14-2024 End: 13-49-4437Qbvors flowsheetMarc D Dolce DPM FACFAS Work Phone: NOMS ASC PODStart: 08-13-2024 End: 10-36-7403Oexvmxz encounter procedureSolo Carty MD Work Phone: cardiologyComment on above:Palpitation (Primary Dx) Start: 08-13-2024 End: 81-51-7874kgnybtjhskWWLKR MABALAY ALDAFacility:[facility] Start: 08-13-2024 End: 41-53-4654yshllgfcbcFERVL MABALAY ALDAFacility:[facility] Start: 85-22-8730evsjxfwascYUSOT [facility]AB[facility]Y ALDAFacility:[facility] Start: 08-01-2024 End: 72-09-0622Lxeaqt outpatient visit 25 minutesGiovani Hagen MD Work Phone: NOMS CI FMComment on above: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CMS/HCC) (Primary Dx); Anxiety; PTSD (post-traumatic stress disorder) (CMS/HCC); 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CMS/HCC)Start: 08-01-2024 End: 44-21-6967kznunuljxxKEWYZ M ALDANot AvailableStart: 07-31-2024 End: 22-07-0531WvmzotUlzdp M Alda MD Work Phone: noMS CI FMComment on above:Anxiety; PTSD (post-traumatic stress disorder) (CMS/HCC)Start: 07-24-2024 End: 73-87-4366ismglvidfzWKKS D DOLCENot AvailableStart: 07-24-2024 End: 58-94-8796Oimsgzh encounter procedureMarc D Dolce DPM FACFAS Work Phone: NOKF NMA PODComment on above:Peroneal tendon tear, right, initial encounter (Primary Dx); Right ankle instability; Contracture of right ankleStart: 07-10-2024 End: 64-50-9325W-mail [facility] from [facility] ProviderGynecologyStart: 07-10-2024 End: 05-61-3905Bkyhgmjdwc hospital visit by physicianArron uTrner Blfrank Work Phone: RadiologyComment on above:Chronic idiopathic constipation [K59.04]Start: 07-10-2024 End: 61-94-5710aojltguxqqQx Contract Lead [facility] Work Phone: Obstetrics/GynecologyStart: 07-10-2024 End: 11-97-0036Ankeacz encounter procedureJavy Boudreaux MD Work Phone: CB/GynecologyComment on above:Other specified dyspareunia (Primary Dx); Pelvic pain in femaleConsult to Chronic Pelvic Pain programStart: 07-04-2024 End: 70-67-0888Xvzvul outpatient visit 25 minutesGiovani Hagen MD Work Phone: NOMS CI FMComment on above:Anxiety (Primary Dx); Generalized idiopathic epilepsy and epileptic syndromes, not intractable, 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); 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CMS/HCC); PTSD (post-traumatic stress disorder) (CMS/HCC)Start: 07-04-2024 End: 67-79-9217zawftlquxpPYXUD M ALDANot AvailableStart: 07-03-2024 End: 75-00-1470ipotolgekeUXAA D DOLCENot AvailableStart: 07-03-2024 End: 41-60-9118Oafzrep encounter procedureMarc D Dolce DPM FACFAS Work Phone: NOMS NMA PODComment on above:Peroneal tendon tear, right, initial encounter (Primary Dx); Right foot painStart: 07-03-2024 End: 61-89-2027Vnyqid flowsheetMarc D Dolce DPM FACFAS Work Phone: NOMS ASC PODStart: 07-03-2024 End: 26-05-3889Dlshrl flowsheetMarc D Dolce DPM FACFAS Work Phone: noms ASC PODStart: 06-26-2024 End: 59-83-4095qbtafaazibEHGA D DOLCENot AvailableStart: 06-26-2024 End: 87-02-0388Ipthbca encounter procedureMarc D Dolce DPM FACFAS Work Phone: noMS NMA PODComment on above:Peroneal tendon tear, right, initial encounter (Primary Dx); Right ankle instabilityStart: 06-26-2024 End: 23-52-4467Rvtiqh flowsheetMarc D Dolce DPM FACFAS Work Phone: NOEC ASC PODStart: 06-26-2024 End: 33-14-3291Swoakw flowsheetMarc D Dolce DPM FACFAS Work Phone: noms ASC PODStart: 06-25-2024 End: 71-65-0261Anjbve outpatient visit 15 minutesCorey Matty DO Work Phone: NOPF BCP OBComment on above:Pain in female genitalia on intercourse; CystitisStart: 06-25-2024 End: 58-16-4674cxoeutrdatCXILY FAZIONot AvailableStart: 06-25-2024 End: 22-00-2456Kujxyp flowsheetCorey Matty DO Work Phone: noms BCP OBStart: 06-25-2024 End: 42-17-1000Oaqoji flowsheetCorey Matty DO Work Phone: noms BCP OBStart: 06-25-2024 End: 55-29-0363Gqcdudim Result EncounterCorey Matty DO Work Phone: NOCZ External Department UnsolicitedStart: 06-19-2024 End: 46-53-4094Oqgnrl follow up visit related to original Joseph Pitts DPM Work Phone: NORR OR PODComment on above:Peroneal tendon tear, right, initial encounter (Primary Dx); Right ankle instability; Contracture of right ankle; Sprain of anterior talofibular ligament of right ankle, subsequent encounter Start: 06-19-2024 End: 93-51-1724vayafhqmggONQVXOWH A BROWNNot AvailableStart: 06-19-2024 End: 75-48-6284Fafhpp flowsStephanie Pitts DPM Work Phone: noms OR PODStart: 06-19-2024 End: 32-87-4473Wmsieu Libby Pitts DPM Work Phone: noms SC PODStart: 06-18-2024 End: 20-78-7882YpkhbvUayaf M Hemmer PA Work Phone: NOMS CI FMComment on above:Anxiety; Bipolar disorder, in partial remission, most recent episode manic (CMS/HCC) Start: 06-12-2024 End: 78-40-2731Vgrweppne encounterMarc Gonzalez Corneliusbran DPM FACFAS Work Phone: noms WH PODStart: 06-06-2024 End: 46-41-1780qnhmudgsakSDWKY M ALDANot AvailableStart: 06-06-2024 End: 14-70-2422Shwwxe outpatient visit 25 minutesGiovani Hagen MD Work Phone: noMS CI FMComment on above: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CMS/HCC) (Primary Dx); Attention deficit hyperactivity disorder (ADHD), predominantly inattentive type (CMS/HCC); Bipolar disorder, in partial remission, most recent episode manic (CMS/HCC) Start: 06-03-2024 End: 23-62-3392QgaqnpCrtfk M Alda MD Work Phone: noMS CI FMComment on above:Attention deficit hyperactivity disorder (ADHD), predominantly inattentive type (CMS/HCC)Start: 05-29-2024 End: 80-56-7997Hghajz Fredis JUSTICE Work Phone: NOMS BCP OBStart: 05-29-2024 End: 94-69-2052Rnbfht Fredis JUSTICE Work Phone: NOMS BCP OBStart: 05-29-2024 End: 28-45-0165Obbjgo follow up visit related to original Marii JUSTICE Work Phone: noms BCP OBComment on above:Postop checkStart: 05-29-2024 End: 37-96-0685spsbawkpobLED RAMEYNot AvailableStart: 05-27-2024 End: 47-40-1214Agolabcnm Result EncounterGeneric External Data ProviderNOMS External Department UnsolicitedStart: 05-27-2024 End: 88-01-7079Vifimergm Result EncounterGeneric External Data ProviderNOMS External Department UnsolicitedStart: 05-23-2024 End: 32-34-8795Vurrcpdjq Result EncounterCorey Matty DO Work Phone: noms External Department UnsolicitedStart: 05-23-2024 End: 26-30-9458Yhrkduaju Result EncounterCorey Matty DO Work Phone: noMS External Department UnsolicitedStart: 05-23-2024 End: 75-33-5057Erycqf Goyo Winn MD Work Phone: aulatory SurgeryComment on above:Results (C diff) Start: 05-22-2024 End: 86-06-0221dbgmibebkiRBGRZ MABALAY ALDAFacility:[facility] Start: 05-22-2024 End: 81-00-3773Opijndvyd Result EncounterGeneric External Data ProviderNOSC External Department UnsolicitedStart: 05-22-2024 End: 86-94-4974Aftwmkpal Result EncounterGeneric External Data ProviderNOSC External Department UnsolicitedStart: 05-22-2024 End: 25-54-3007Fzlmnezyqs hospital visit by Daniele Winn MD Work Phone: aulatory SurgeryComment on above:BRBPR (bright red blood per rectum) [K62.5]Start: 05-15-2024 End: 16-53-1447Dpbkjf flowsheetMarc D Dolce DPM FACFAS Work Phone: NOMS ASC PODStart: 05-15-2024 End: 52-20-4791Rgtmqq flowsheetMarc D Dolce DPM FACFAS Work Phone: NOMS ASC PODStart: 05-15-2024 End: 02-32-1935Ucxfbz outpatient visit 25 minutesMarc D Dolce DPM FACFAS Work Phone: NOMS NMA PODComment on above:Peroneal tendon tear, right, initial encounter (Primary Dx); Right foot pain; Sprain of anterior talofibular ligament of right ankle, subsequent encounter; Osteochondritis dissecans of ankle, right; Right ankle instabilityStart: 05-15-2024 End: 36-09-2157hgbudoxkgtFFMX Gonzalez FRAIRENot AvailableStart: 05-14-2024 End: 83-67-2670Nmcoeqpjzy OrdersRosario Mcconnell MD Work Phone: [facility] Comment on above:ENGLISH (nonalcoholic steatohepatitis) (Primary Dx)Start: 05-09-2024 End: 69-57-3874Mjamby outpatient visit 15 minutesGiovani Hagen MD Work Phone: NOMS CI FMComment on above:Cervical radiculopathy due to degenerative joint disease of spine (Primary Dx)Start: 05-09-2024 End: 37-61-7089Ackpci Maddie Kelley DO Work Phone: OrthopaedicsComment on above:Right ankle instability (Primary Dx)Start: 05-08-2024 End: 10-57-6986Ixlzax outpatient visit 25 minutesPrateek Pitts DPM Work Phone: NOMS SC PODComment on above:Peroneal tendon tear, right, initial encounter (Primary Dx); Sprain of anterior talofibular ligament of right ankle, subsequent encounter; Osteochondritis dissecans of ankle, right; Severe ankle sprain, right, initial encounterStart: 05-08-2024 End: 45-72-3509Woagmxbps Result EncounterGeneric External Data ProviderNOMS External Department UnsolicitedStart: 05-08-2024 End: 97-15-3662Cfvngekyw Result EncounterGeneric External Data ProviderNOMS External Department UnsolicitedStart: 05-08-2024 End: 74-78-0818OunrjbWdmgw M Alda MD Work Phone: NOMS CI FMComment on above:Anxiety; Bipolar disorder, in partial remission, most recent episode manic ([facility]/HCC) Start: 05-06-2024 End: 97-25-6939Xvwyvhbzf encounterArskaiser Carty MD Work Phone: cardiologyComment on above:Patient Update (04/09/24 Echo Faxed)Start: 05-03-2024 End: 08-89-9970Xmleqioqx Result EncounterSandy JUSTICE Work Phone: noms External Department UnsolicitedStart: 05-03-2024 End: 66-71-4380Koseuicnj Result EncounterSandy JUSTICE Work Phone: noms External Department UnsolicitedStart: 05-02-2024 End: 74-57-9585Hhznez OnlyIliana Mercado PA-C Work Phone: GastroenterologyComment on above:Elevated LFTs (Primary Dx)Received imagesStart: 04-30-2024 End: 90-22-8043Fnsvmm outpatient visit 15 minutesCorey Matty DO Work Phone: noms BCP OBComment on above:Pre-op evaluation; H/O female dyspareunia; Pelvic pain; Other endometriosis; H/O: hysterectomyStart: 04-30-2024 End: 55-62-6811Kemrcxyrjojqo examination doneCorey Matty DO Work Phone: noms HealthcareStart: 04-30-2024 End: 64-66-9387Hvwian flowsheetCorey Matty DO Work Phone: noms BCP OBStart: 04-30-2024 End: 46-62-8012Cflgmj flowsheetCorey Matty DO Work Phone: noms BCP OBStart: 04-30-2024 End: 60-24-1431WxkotyKwsuf M Alda MD Work Phone: noms CI FMComment on above:Attention deficit hyperactivity disorder (ADHD), 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), predominantly inattentive type (CMS/HCC); Obesity (BMI 35.0-39.9 without comorbidity)Start: 04-26-2024 End: 38-63-1670Cijfwz outpatient visit 25 minutesLaclaude Mercado PA-C Work Phone: GastroenterologyComment on above:Elevated LFTs (Primary Dx); BRBPR (bright red blood per rectum)Start: 04-26-2024 End: 21-71-2101Vrcxhtljm Result EncounterGeneric External Data ProviderNOMS External Department UnsolicitedStart: 04-26-2024 End: 80-09-8623Wtnnzdtdj Result EncounterGeneric External Data ProviderNOMS External Department UnsolicitedStart: 04-26-2024 End: 72-32-2274gctpdpoyloEHEXEZ [facility] CENTERRAROFacility:[facility] HospitalStart: 04-26-2024 End: 38-14-4140Chifxgj encounter Erika Robleslindsayportia DO Work Phone: OrthopaedicsComment on above:Sprain of anterior talofibular ligament of right ankle, initial encounter (Primary Dx)Start: 04-22-2024 End: 57-29-3291Ptjhcptqb encounterGiovani Hagen MD Work Phone: NOMS CI FMStart: 04-19-2024 End: 04-26-7487FhpoyfHjywf M Hemmer PA Work Phone: noMS CI FMComment on above:Obesity (BMI 35.0-39.9 without comorbidity)Start: 04-18-2024 End: 16-73-2623qxykttfmwgFRYOKHY R LACONISNot AvailableStart: 04-18-2024 End: 28-42-2964Ybxknn outpatient visit 25 Justo Gilman NP Work Phone: NOMS SWS UCComment on above:Acute bronchitis with asthma (CMS/HCC) (Primary Dx)Start: 04-16-2024 End: 80-49-5105dbttwxjofbZQBTS M ALDANot AvailableStart: 04-09-2024 End: 14-94-7656emluiwiicrVWWQCNML KOCHARFacility:[facility]Start: 04-05-2024 End: 52-89-0770apsemzeguwMdk ProviderCardiologyComment on above:Surgical ClearanceStart: 04-05-2024 End: 32-29-7452Ryptrbaiq encounterSolo Carty MD Work Phone: cardiologyComment on above:Received Outside Medical Records (Cardio Clearance [employer] [place])Start: 04-03-2024 End: 85-97-7905bdpaykfbdqOITCGP M SHIVELYNot AvailableStart: 04-03-2024 End: 32-53-3853Ffpsif outpatient visit 25 minutesDeena Lyn STONEMASON SUPERVISOR Work Phone: NOMS CI FMComment on above:Hypokalemia (Primary Dx); Elevated blood sugar; Pre-operative clearance; Acute pain of left shoulder; Obesity (BMI 35.0-39.9 without comorbidity)Start: 04-03-2024 End: 12-05-2484Pbvpzbtzqmpb Yoselin Lyn STONEMASON SUPERVISOR Work Phone: NOMS HealthcareStart: 04-02-2024 End: 74-78-0856Tljpoxvyd encounterSolo Carty MD Work Phone: cardiologyComment on above:Received Outside Medical Records ([employer] [place])Start: 04-01-2024 End: 29-91-5803eqdcyqpfqmFDMWK M ALDANot AvailableStart: 04-01-2024 End: 54-68-7821Woosvo outpatient visit 25 minutesGiovani Hagen MD Work Phone: NOMS CI FMComment on above:Tremors of nervous system (Primary Dx); Mild intermittent asthma without complication (CMS/HCC)Start: 03-29-2024 End: 90-03-5021fudoansxfbHpyw Dakhil MD Work Phone: GastroenterologyComment on above:Elevated AST/ALT Start: 03-27-2024 End: 98-17-6051cittbfelysEektkiKlarissa Burgess PT Work Phone: NOMS CI PTComment on above:Cervical radiculopathy (Primary Dx)Start: 03-27-2024 End: 58-28-6538Vbathp flowsheetZhen Burgess PT Work Phone: NOMS CI PTStart: 03-27-2024 End: 93-61-5002Msycje flowsheetZhen Burgess PT Work Phone: noms CI PTStart: 03-26-2024 End: 16-80-9133LndlrzRsyui M Alda MD Work Phone: noms CI FMComment on above:Attention deficit hyperactivity disorder (ADHD), predominantly inattentive type (CMS/HCC); Acute right ankle painStart: 03-25-2024 End: 37-63-2802Fzdmqgevr encounterGiovani Hagen MD Work Phone: noms CI FMStart: 03-20-2024 End: 51-66-5845Bxixfwn encounter procedureCorey Matty DO Work Phone: noms HealthcareStart: 03-20-2024 End: 46-65-1458Xootwffv preventive med est patient 18-39 yrsCorey Matty DO Work Phone: NOMS BCP OBComment on above:Well woman exam with routine gynecological exam; Dyspareunia in female; CystitisStart: 03-20-2024 End: 31-24-0056thgwqgrkejNOJHP FAZIONot AvailableStart: 03-20-2024 End: 59-04-2794Nqsdxoleh Result EncounterGeneric External Data ProviderNOMS External Department UnsolicitedStart: 03-20-2024 End: 79-06-9545Fticljkrk Result EncounterGeneric External Data ProviderNOMS External Department UnsolicitedStart: 03-19-2024 End: 27-00-7719owprcljxseBowhzdb Kelbley PTANOMS CI PTComment on above:Cervical radiculopathy (Primary Dx)Start: 03-17-2024 End: 57-35-7091Tgalfuwvb Result EncounterGeneric External Data ProviderNOMS External Department UnsolicitedStart: 03-17-2024 End: 43-09-4878Mbdpqcmfd Result EncounterGeneric External Data ProviderNOMS External Department UnsolicitedStart: 03-11-2024 End: 85-66-6692hbkpwmltbsAgmxeftq Brink PTANOMS CI PTComment on above:Cervical radiculopathy (Primary Dx)Start: 03-11-2024 End: 43-82-6694Kpupft flowsheetMarshdenise Brink PTANOMS CI PTStart: 03-11-2024 End: 08-36-1884Eqsfqv flowsheetMarshdenise Brink PTANOMS CI PTStart: 03-07-2024 End: 98-10-5862VsylmxSwivr M Alda MD Work Phone: noms CI FMComment on above:Obesity (BMI 35.0-39.9 without comorbidity)Start: 03-06-2024 End: 33-57-7837gerawdrjdeNgnoxulf Brangelina PTANOMS CI PTComment on above:Cervical radiculopathy (Primary Dx)Anxiety; Bipolar disorder, in partial remission, most recent episode manic ([facility]) Start: 03-06-2024 End: 13-95-1560Cqxgjyqxb Result EncounterGeneric External Data ProviderNOMS External Department UnsolicitedStart: 03-06-2024 End: 45-78-1293Ynalhmkvz Result EncounterGeneric External Data ProviderNOMS External Department UnsolicitedStart: 02-29-2024 End: 35-05-4566xhuxmllcumDrwvmux Kelbley PTANOMS CI PTComment on above:Cervical radiculopathy (Primary Dx)Start: 02-29-2024 End: 05-92-3694Fbzheh flowsheetMelissa Kelbley PTANOMS CI PTStart: 02-29-2024 End: 23-04-1752Ffxhpg flowsheetMelissa Kelbley PTANOMS CI PTStart: 02-27-2024 End: 28-60-3745vbnajyfrrvYiesjmy Kelbley PTANOMS CI PTComment on above:Cervical radiculopathy (Primary Dx)Start: 02-27-2024 End: 49-21-8047Klqgks flowsheetMelissa Kelbley PTANOMS CI PTStart: 02-27-2024 End: 05-56-7504Cdafvu flowsheetMelissa Kelbley PTANOMS CI PTStart: 02-20-2024 End: 45-50-8117QxtktiGbrqu Dukles LPNNOMS CI FMComment on above:Attention deficit hyperactivity disorder (ADHD), predominantly inattentive type (CMS/HCC) Start: 02-14-2024 End: 11-16-8103hnfcnpqfujImmgqjlb Brink PTANOMS CI PTComment on above:Cervical radiculopathy (Primary Dx)Start: 02-14-2024 End: 24-03-5262Smmpon flowsheetMarshall Brink PTANOMS CI PTStart: 02-14-2024 End: 31-98-3742Ungocz flowsheetMarshall Brink PTANOMS CI PTStart: 02-12-2024 End: 77-68-6137fiydovierlEpfpgk T Blackston PT Work Phone: noms CI PTComment on above:Cervical radiculopathy (Primary Dx)Start: 02-12-2024 End: 10-42-0847Gamplm David Hyde Wabi Sabi [employer] PT Work Phone: noms CI PTStart: 02-12-2024 End: 37-01-3701Qqhsfl David Hyde [employer]xavi PT Work Phone: noms CI PTStart: 02-07-2024 End: 38-36-4281cwpcalnnkgKxlnivtj Brink PTANOMS CI PTComment on above:Cervical radiculopathy (Primary Dx)Start: 02-07-2024 End: 79-60-1106Szrnxz flowsheetMarshall Brink PTANOMS CI PTStart: 02-07-2024 End: 61-13-6375Arqeeh flowsheetMarshall Brink PTANOMS CI PTStart: 02-06-2024 End: 00-19-7149Oiuxlt outpatient visit 25 minutesGiovani Hagen MD Work Phone: noms CI FMComment on above:Localized edema (Primary Dx); Obesity (BMI 35.0-39.9 without comorbidity); Injury of right ankle, subsequent encounter; Anxiety; Bipolar disorder, in partial remission, most recent episode manic (CMS/HCC) Start: 02-05-2024 End: 11-50-0023meuaypfnneMyqupbKlarissa Burgess PT Work Phone: noMS CI PTComment on above:Cervical radiculopathy (Primary Dx)Start: 02-05-2024 End: 53-87-6634Nhhzmo flowsChristelle Burgess PT Work Phone: noms CI PTStart: 02-05-2024 End: 72-54-5945Uyaoyi Farhadcarolynarmando Burgess PT Work Phone: noMS CI PTStart: 01-29-2024 End: 44-09-7713Hcwpvdhhm encounterZhen Burgess PT Work Phone: noms CI PTComment on above:PT Initial Eval (Tried to contact to schedule PT Eval for cervical radiculopathy; but had to lm requesting call back.); Call Back (She contacted and we scheduled PT Eval 02/04 w/ Zhen Burgess, PT.)Start: 01-22-2024 End: 93-64-1934Fcihmj outpatient visit 15 minutesCorearmando Matty DO Work Phone: noms BCP OBComment on above:Dyspareunia in female; Urethral painStart: 01-17-2024 End: 86-20-5438Zrwzzzkei Result EncounterGiovani Hagen MD Work Phone: noms External Department UnsolicitedStart: 01-17-2024 End: 81-11-8182Zvnqanwnw Result EncounterGiovani Hagen MD Work Phone: noms External Department UnsolicitedStart: 01-09-2024 End: 92-10-0575Detbby outpatient visit 25 minutesGiovani Hagen MD Work Phone: noms CI FMComment on above:Cervical radiculopathy (Primary Dx); Attention deficit hyperactivity disorder (ADHD), predominantly inattentive type (CMS/HCC); Anxiety; Bipolar disorder, in partial remission, most recent episode manic (CMS/HCC) Start: 01-08-2024 End: 14-94-3636Guxxsvmvg encounterGiovnai Hagen MD Work Phone: noms CI FMComment on above:Med RefillStart: 12-28-2023 End: 85-95-1058Astszwy encounter procedureJEAMANDA DEJESUS [facility] start: 12-28-2023 End: 95-38-7008bqltrguoneZqz ProviderCardiologyComment on above:ZioStart: 12-26-2023 End: 36-80-2107Tglnsu outpatient visit 25 minutesGiovani Hagen MD Work Phone: noms CI FMComment on above:Cervical radiculopathy (Primary Dx); Acute nonintractable headache, unspecified headache type; Nausea and vomiting, unspecified vomiting typeStart: 12-19-2023 End: 82-33-4635Mbmbvpsec Result EncounterGeneric External Data ProviderNOMS External Department UnsolicitedStart: 12-19-2023 End: 87-44-2925Mveezzgsh Result EncounterGeneric External Data ProviderNOMS External Department UnsolicitedStart: 12-19-2023 End: 55-94-7784Djzejj OnlySolo Carty MD Work Phone: cardiologyComment on above:Syncope and collapse (Primary Dx)Event (ZIO PATCH)Syncope, unspecified syncope type (Primary Dx) Start: 12-18-2023 End: 80-53-6432Uofbskgni encounterTracey Jed RT. RNOMS SWS PODIATRYComment on above:Lab resultsStart: 12-13-2023 End: 96-41-0964Xksefebgm Result EncounterGeneric External Data ProviderNOMS External Department UnsolicitedStart: 12-13-2023 End: 19-69-1678Gdavnytyd Result EncounterGeneric External Data ProviderNOMS External Department UnsolicitedStart: 12-04-2023 End: 63-40-5207Ebjuxwu encounter statusJemona Burgess PT Work Phone: NOHD HealthcareStart: 11-20-2023 End: 60-66-0984Dlqdmylqh Result EncounterGeneric External Data ProviderNOMS External Department UnsolicitedStart: 11-20-2023 End: 84-91-2154Kvpgniobh Result EncounterGeneric External Data ProviderNOMS External Department UnsolicitedStart: 14-49-7125Zqviye Skip Carty MD Work Phone: cardiologyComment on above:Gastroparesis (Primary Dx) Patient Update (Referral & Records are in Care Everywhere)Start: 03-22-2023 End: 92-79-6521Ezgpzrpxbk and management of inpatientMARY Varner Alsip HospitalStart: 29-65-3758ewiqobagmbKnsk Dakhil MD Work Phone: GastroenterologyComment on above:Thoughts and input Start: 56-93-7444Vatwzswrp encounterCharlette Campuzano MD Work Phone: FV Provider AdultStart: 77-89-8805Kkycticrm encounter Maria Dolores Corey DO Work Phone: GastroenterologyComment on above:Medication Preauthorization ([place] for Ibsrela)Start: 11-02-2022 End: 71-81-4807Ihcsaa OnlyMichael S Corey DO Work Phone: GastroenterologyComment on above:Irritable bowel syndrome with constipation (Primary Dx)GastroparesisGastroparesis (Primary Dx) Start: 10-26-2022 End: 69-77-8767lattbrmohsXY Giovani Hagen Work Phone: [facility] Work Phone: Start: 10-26-2022 End: 33-82-2778Jspiavp encounter procedureMD Matute Jackson Work Phone: [facility]-Ultrasound [place] Work Phone: Start: 77-38-9406jyteaanmqeTlzeekb S Corey DO Work Phone: GastroenterologyStart: 48-77-5912Vaorpbcif encounter Maria Dolores Corey DO Work Phone: GastroenterologyComment on above:Medication Preauthorization (Motegrity)ResultsStart: 10-17-2022 End: 46-65-4403Lvvlqfh encounter procedureElectrogastrogram [facility] Work Phone: GastroenterologyComment on above:Gastroparesis (Primary Dx)Start: 09-12-2022 End: 64-19-0931Yzpkgjfoxu hospital visit by Mariajose Jha [facility] Work Phone: [facility] Radiology MolecularComment on above: Nausea [R11.0]Start: 08-31-2022 End: 95-87-8636Fsntrqvuyo hospital visit by Daniele Winn MD Work Phone: ambulatory SurgeryComment on above:PUD (peptic ulcer disease) [K27.9]Start: 93-76-9547Cwbtrsmtb [facility] Work Phone: GastroenterologyComment on above:AppointmentStart: 07-08-2022 End: 42-38-2532lxpfnagytzJI MADHURI ORTIZ .Facility:Y2Kpkjn: 07-06-2022 End: 03-45-1355bivawhhgcnJMSelene ORTIZ .Facility:L5Xrbpd: 07-05-2022 End: 62-05-7749Bwakjkw encounter procedureMadhuri ORTIZ [facility] Start: 94-37-3851Lgobkr Goyo Winn MD Work Phone: GastroenterologyStart: 06-30-2022 End: 67-44-8967Gxkxtdaajc hospital visit by Daniele Winn MD Work Phone: ambulatory SurgeryComment on above:Bilious vomiting with nausea [R11.14]Start: 06-29-2022 End: 11-45-8405aklidtpnrkUISelene ORTIZ .Facility:N8Izmoi: 06-29-2022 End: 74-12-7461Mqz Drop offMadhuri ORTIZ [facility] Start: 34-73-6971ematkvhzlaLcqn Dakhil MD Work Phone: GastroenterologyComment on above:EGD instructions Start: 28-20-2346D-mail encounter from Celso Winn MD Work Phone: rEM [facility] MCStart: 66-92-9152vrewlcgbgmBha ProviderGastroenterologyComment on above:Question regarding US ABD RT UPPER QUADRANTStart: 06-15-2022 End: 76-98-7365Qpfqbenugw hospital visit by physicianKye [facility] Work Phone: [facility] Radiology UltrasoundComment on above: Liver lesion [K76.9]Start: 17-44-1501Gdrcoc OnlyCarol Winn MD Work Phone: ambulatory SurgeryComment on above:Liver lesion (Primary Dx)ResultsStart: 72-08-7804bszzrrgxbmQywuo Pycraft RT(R)Radiology Ct ScanComment on above:Radiology CTStart: 12-37-5124Cnumeae encounter procedure Diamond Pycraft RT(R)[facility] CENTERStart: 06-10-2022 End: 86-62-6833Okakfxpkjz hospital visit by physicianEmma Holm [facility] CcRadiology Ct ScanComment on above:Bilious vomiting with nausea [R11.14]Start: 05-27-2022 End: 37-10-2558Dhtvvlwcbq hospital visit by physicianArron [facility] Work Phone: [facility] Radiology GeneralComment on above:SOB (shortness of breath) [R06.02]Start: 05-27-2022 End: 76-92-7076Ugpnlat encounter Rocco Winn MD Work Phone: GastroenterologyComment on above:Fatty liver (Primary Dx); Bilious vomiting with nausea; Right sided abdominal pain; Nausea; History of diverticulitis; SOB (shortness of breath)Start: 05-13-2022 End: 02-90-3318mqpcmmbiolTM Giovani Hagen Work Phone: [facility] Work Phone: Start: 05-13-2022 End: 03-33-7834Ftteivm encounter procedureMD Giovani Hieu Work Phone: [facility]-Digestive Health Work Phone: Start: 05-03-2022 End: 43-55-4931rexjxtoutvFDJR MISSION BERNAL CAMPUSWaizy Other Start: 63-53-3197Vcsmph consultation new/estab patient 60 minImad AsaadFPG GastroenterologyStart: 04-20-2022 End: 90-63-8994ghtruocmsrUL [facility] IRBY .Facility:M9Nuahs: 04-06-2022 End: 63-10-6490lnwdaoelypWY RUGARELY ALDAFacility:Z4Nygie: 12-21-2021 End: 39-48-2008esqxjnytycMD [facility] IR[facility] .Facility:S2Oullr: 12-10-2021 End: 19-78-9537Loaxlapdst hospital visit by physicianUs [facility] UltrasoundComment on above:Elevated LFTs [R79.89]Start: 10-27-2021 End: 01-66-5270xauotezcdwTN GREGORY KARASIK .Facility:X9Lnomb: 10-20-2021 End: 32-81-7184iwcyghffrlBVO RAMEY .Facility:L9Bzlfy: 10-19-2021 End: 01-65-9862ztmppsjuonTR [facility] IRBY .Facility:O6Psymm: 09-06-2021 End: 33-85-2538afkmhwomgyTT RUGEN ALDAFacility:Q9Owqgh: 08-27-2021 End: 82-80-4906eeykoccmesAQ RUGEN ALDAFacility:R8Czxle: 08-14-2021 End: 90-69-3497fcwhywmkerGT RUGEN ALDAFacility:Y9Qbjqx: 11-06-2018 End: 58-63-1980Uodjclu encounter procedureAMANDA [facility] Procedures DateProcedureProcedure DetailPerforming ClinicianStart: 36-61-8026TLS LIPID PROFILE (FASTING)Generic External Data ProviderStart: 02-47-3936VCE CMP (CMP) (FOR REMOTE [facility] USE)Generic External Data ProviderStart: 91-18-3485QPE CBC WITH AUTO DIFFRparin Lisbeth Hagen MD Work Phone: Start: 65-34-3843Ptaws foot complete minimum 3 views Milton Fraire DPM FACFAS Work Phone: Start: 37-02-8518DDB HEMOGLOBIN O0KLowre M Stephany JUSTICE Work Phone: Start: 70-27-8668Guunivkodg exam abdomen 1 view Mario Harper APRN.OXIDATION ENGINEER Work Phone: Start: 41-61-1983MI ABDOMEN 1V SUPINEGeneric External Data ProviderStart: 49-72-4007SRZ HEAD/BRAIN WO/W CONTRJacqueline Lisbeth Ochoa STONEMASON SUPERVISOR Work Phone: Start: 45-76-5270IEWMP [facility] Mario Harper APRN.OXIDATION ENGINEER Work Phone: Start: 64-90-0536Np pelvic nonobstetric real-time image completeJavy Boudreaux MD Work Phone: Start: 17-16-0360Daqvt ankle complete minimum 3 views Milton Fraire DPM FACFAS Work Phone: Start: 17-99-6813SGIAVGKCT VAGINITIS (HTRX)Darwin Matty DO Work Phone: Start: 79-80-9308YFE HEMOGLOBIN N0DRhxyd Matty DO Work Phone: Start: 63-60-1300RXE CBC WITH AUTO DIFFGeneric External Data ProviderStart: 27-31-9373Pio agent det nucleic acid clostridium amp probeNokerry Winn MD Work Phone: start: 03-69-9223CgmpzbcpdgsUrjhrap External Data ProviderStart: 39-98-1107Ouoagcfiykz flx dx w/collj spec when pfrmdLauren Yacapraro PA-C Work Phone: start: 92-94-4545Sdocn ankle complete minimum 3 views Milton Roth Adryanbran DPM FACFAS Work Phone: Start: 21-55-9700QIV CBC WITH AUTO DIFFCorey Matty DO Work Phone: Start: 23-08-7089Tof spinal canal cervical w/o contrast adolfolSandy JUSTICE Work Phone: Start: 05-02-2024 End: 37-40-3710Vrazv elastography w/o imag w/i&rLauren Yacapraro PA-C Work Phone: start: 12-05-9285LMV CBC W AUTO DIFF BLDGeneric External Data ProviderStart: 48-99-2107ACG,APTIMA HPV,AGE GDLNCorey Matty DO Work Phone: Start: 41-52-0419Lfo any jt lower extrem w/o contrast matrlGeneric External Data ProviderStart: 39-75-1190IQ ANKLE RT MIN 3VGeneric External Data ProviderStart: 52-59-4874DO CERVICAL SPINE 2-3VRolamide Hagen MD Work Phone: Start: 95-44-2014Rbd routine ecg w/least 12 lds w/i&r Generic External Data ProviderStart: 09-39-0520TIE CBC WITH AUTO DIFFEugene R Kubitz DPM Work Phone: start: 22-24-9047CN ABDOMEN 1VGeneric External Data ProviderStart: 93-15-3547Lfecghl of cholecystectomyHistory of cholecystectomy Zhen Burgess PT Work Phone: Start: 65-06-3438Hhnkfxvxpcqpvsb of liverMD Giovani Hagen Work Phone: Start: 09-23-2022H/O: hysterectomyHistory of hysterectomyJemona Burgess PT Work Phone: Start: 96-76-5536Tfmqnur emptying imaging studyCarol Winn MD Work Phone: start: 84-08-8543Gxxyq iv surg pathology gross&microscopic examCarol Winn MD Work Phone: start: 50-60-6493Ctyrwkywheuwauoguztmkjecys transoral diagnosticCarol Winn MD Work Phone: start: 10-38-0676Lhlbe iv surg pathology gross&microscopic examCarol Winn MD Work Phone: start: 69-64-8640Ihonnhjwnvbqxmlbntaxibqcvd transoral diagnosticCarol Winn MD Work Phone: start: 99-58-9575Hj abdominal real time w/image Cande Winn MD Work Phone: start: 23-26-7716Dz abdomen & pelvis w/o contrast materialCarol Winn MD Work Phone: start: 51-39-1498Gfjlfqhutp exam chest 2 viewsCarol Winn MD Work Phone: start: 93-45-7082Pfonevecyp elastography of liverMD Giovani Hagen Work Phone: Start: 29-15-8885Ne abdominal real time w/image Cande Winn MD Work Phone: Start: 70-74-4183Pygpjrhpnkxqookzu with dilation of urethral strictureMadhuri ORTIZ Start: 24-39-0550SIFMSPEMU REPORTAMANDA SPRINGERStart: 25-81-9790Oif spinal canal lumbar w/o contrast materialAMANDA SPRINGERStart: 52-06-8775Okyrc Medial Branch Block 1Ppurnima ORTIZ Comment on above:Bilateral T5-T8 -10% relief x 2 hours. Start: 94-66-9385Nyhafqegn of sacroiliac joint using fluoroscopic guidance Madhuri ORTIZ Comment on above:right 40% reliefStart: 07-02-2018 Injection of sacroiliac joint using fluoroscopic guidanceMadhuri ORTIZ Comment on above:right 50% relief to presentCesarean sectionMadhuri ORTIZ CholecystectomyJENNIFER OLEG H/O: hysterectomyH/O: hysterectomyCorey Matty DO Work Phone: HysterectomyMadhuri ORTIZ Plan of Treatment DateCare ActivityDetailAuthorStart: 98-92-2312HJtI/Tdap/Td Vaccines (7 - Td or Tdap)DTaP/Tdap/Td Vaccines (7 - Td or Tdap)NOMS HealthcareStart: 33-77-2545Tyxvp microalbumin profileDTaP,Tdap,Td Vaccine (7 - Td or Tdap)[facility] Hospitaltart: 46-20-4012Lmhdlfxlyh A1c measurementDiabetes: Hemoglobin X7IAJYOUniversity of [facility] Health Care Start: 03-18-2025 End: 97-69-4266Ahffbdq encounter zhuozkddi56/25/2025 9:00 AM EST [facility] [address] [facility] [address] [place] [address] Giovani Hagen MD [address] [facility] [address] [place] [address] NOMRodney Scott MedinceStart: 03-14-2025 End: 01-96-8583Pjtuvdt encounter yemkcuqie68/21/2025 11:40 AM EST Office Visit [facility] [address] [facility] [address] [place] [address] Jatin Parisi MD [address] [facility] [address]on [address] [place] [address] [id number] [facility] NeurologyStart: 03-03-2025 End: 57-61-5693Repfveyg Bxksgct6503/03/2025 4:30 PM EST Clinical Support N[facility] POD [address] [place] [address] Milton Fraire, DPM FACFAS [address] [facility] [place] [address] NOMS NMA PODStart: 02-28-2025 End: 37-36-8561Fmooajp encounter /07/2025 9:00 AM EST Office Visit [facility] [address] [facility] [address] [place] [address] Jatin Parisi MD [address] [facility] [address] [place] [phone] NOMS [place] NeurologyStart: 02-27-2025 End: 65-58-7702Lmavcws encounter /06/2025 3:00 PM EST Procedure Visit [facility] [address] [facility] [place] [address] Ayleen Krishnamurthy PA [address] [facility] [address] [place], [place] [phone] NOMS [place] OBGYNStart: 02-12-2025 End: 21-95-9217Dlipjpx encounter procedureNOMS NMA PODComment on above:Arrived Start: 01-20-2025 End: 31-08-3470Mmwcdhcz Akpsbni7801/20/2025 4:00 PM EDT Clinical Support [facility] [place] [facility] [address] [place] [address] [facility] [place] [facility] MedinceStart: 01-15-2025 End: 54-89-3019Vfmqziyd Nmcfjyl4701/15/2025 4:00 PM EDT Clinical Support [facility] [address] [facility] [place] [address] Milton Fraire, DPM FACFAS [address] [facility] [facility] [place] [address] NOMS NMA PODStart: 01-14-2025 End: 14-93-1618Zmyecgojzffr / ancillary services ssupvtlwhy33/23/2025 6:00 PM EDT Ancillary Procedure [facility] [facility] [address] [facility] [place] [address] NOMS [place] Rosales ImagingStart: 12-30-2024 End: 73-32-1327Nxtkeysr SupportNOMS NMA PODComment on above:ArrivedStart: 12-26-2024 End: 03-81-2949CS Lumbar spine WO contrastMR lumbar spine wo contrast Imaging Routine Lumbar radiculopathy Expected: 12/26/2024, Expires: 12/26/2025[facility] Work Phone: Comment on above:Expected: 12/26/2024, Expires: 12/26/2025Start: 12-26-2024 End: 29-18-0606Ldklhme encounter procedureNOMS SWS NEURStart: 41-35-9529FEPLL-19 Vaccine ( season)COVID-19 Vaccine ( season)NOMS HealthcareStart: 94-70-9292Pdogoagbp vaccinationNOSC HealthcareComment on above: Postponed from 12/24/2023 (Other Medical Reasons)Start: 12-16-2024 End: 27-46-0612Bprtsso encounter uurgcapqe21/25/2025 9:45 AM EDT Office Visit [facility] [place] [facility] [address] [facility] [address] [place] [address] Giovani Hagen MD [address] [facility] [address] [place] [address] NOMS [place] Scott MedinceStart: 12-13-2024 End: 70-95-9211Vwhuujb encounter lrkrdxwme15/22/2025 9:40 AM EDT Office Visit [facility] [address] [place] [address] Milton Fraire, DPM FACFAS [address] [facility] [place] [address] NOMS NMA PODStart: 12-12-2024 End: 31-24-3783Qjfptvw encounter xsutvirgu10/21/2025 10:30 AM EDT Office Visit [facility] [place] [facility] [address] [facility] [address] [place] [address] Sandy Hammond PA [address] [facility] [address] [place] [address] Elevated liver enzymes (Primary Dx); Nephrocalcinosis; Bilateral nephrolithiasis; Right ovarian cyst; HypokalemiaNOMS [place] [facility] MedinceComment on above:Elevated liver enzymes (Primary Dx); Nephrocalcinosis; Bilateral nephrolithiasis; Right ovarian cyst; HypokalemiaStart: 11-18-2024 End: 13-89-4270Jfszbnz encounter cjmijydfn73/28/2025 12:00 PM EDT Procedure Visit [facility] NEUR [address] [facility] [address] [place] [address] NOMS SWS NEURStart: 11-04-2024 End: 05-99-3114Hnictqc encounter frasdxhan59/14/2025 2:00 PM EDT Office Visit Gynecology [address] [place] [address] Emma Romero, BASSAM.OXIDATION ENGINEER [address] [place] [address] Other specified dyspareuniaGynecologyComment on above:Other specified dyspareuniaStart: 10-29-2024 End: 09-07-4757Cjvucph encounter uurrphrdz02/08/2025 10:00 AM EDT Procedure Visit [facility] [address] [place] [phone] [facility] NEURO 210Start: 10-15-2024 End: 38-53-7932Xakeumkuq to same day surgery ibwcpe85/ 10:30 AM EDT Procedure Colorectal Surgery PAULAKALEN [address] [facility] [address] [place], [place] [phone] Mario Harper APRN.OXIDATION ENGINEER [address] [place] [address] manometryColorectal SurgeryComment on above:manometryStart: 10-10-2024 End: 27-68-0384BLT 1 ExtremeityEMG 1 [facility] Neurology Routine Numbness and tingling Expected: 10/10/2024 (Approximate), Expires: 10/10/2025[facility] Comment on above:Expected: 10/10/2024 (Approximate), Expires: 10/10/2025Start: 10-10-2024 End: 63-30-4985CB Brain WO and W contrast IVMR brain w and wo contrast routine Imaging Routine Numbness and tingling Atypical migraine Expected: 10/10/2024 (Approximate), Expires: 10/10/2025[facility] Work Phone: Comment on above:Expected: 10/10/2024 (Approximate), Expires: 10/10/2025Start: 10-10-2024 End: 40-09-4795Kequrjf encounter procedureNOMS SVH NEURO 210Comment on above: ArrivedStart: 09-25-2024 End: 87-39-4148Rzdfqwz encounter bzncrytna79/04/2025 10:30 AM EDT Office Visit [facility] [address] [facility] [address] [place] [address] Deena Lyn NP [address] [facility] [address] [place] [address] ArrivedNOMS CI FMComment on above:ArrivedStart: 09-17-2024 End: 74-15-0821Dxvetwr encounter procedureNOMS CI FMComment on above:Arrived Start: 09-04-2024 End: 99-03-4151Bwfunvv encounter qgirjwoxp91/14/2025 4:40 PM EDT Office Visit [facility]OD [address] [place] [address] Milton Fraire, DPM FACFAS [address] [place] [address] NOMS NMA PODStart: 09-02-2024 End: 93-13-3339Toobqab encounter hmsuzerqg50/12/2025 3:00 PM EDT Office Visit [facility] [address] [facility] [address] [place] [address] Giovani Hagen MD [address] [facility] [address] [place] [address] NOMS CI FMStart: 08-21-2024 End: 42-92-9422Stgqegu encounter cwzwyekow06/30/2025 4:00 PM EDT Office Visit [facility] NMA POD [address] [place] [address] Milton Fraire, DPM FACFAS [address] [place] [address] NOMS NMA PODStart: 78-39-4401ArmfxkkulBlanchard [facility] Start: 25-15-5458Pvhmicoi admissionRegency Hospital Cleveland Easttart: 36-90-1488GghdjqoepRegency Hospital Cleveland Easttart: 08-14-2024 End: 90-06-2529Rzinxlp encounter rgnweggmz88/23/2025 4:10 PM EDT Office Visit [facility] NMA POD [address] [place] [address] Milton Fraire, DPM FACFAS [address] [place] [address] NOMS NMA PODStart: 08-13-2024 End: 71-42-5527Ynfiyso encounter /22/2025 2:30 PM EDT Office Visit Cardiology [address] [place] [address] Solo Carty MD [address] [place] [address] Dx: Syncope, unspecified syncope type [R55]CardiologyComment on above:Dx: Syncope, unspecified syncope type [R55]Start: 08-13-2024 End: 48-09-4742Xvthxsf encounter wffmljqno60/22/2025 12:30 PM EDT Office Visit Cardiology [address] [place], [place] [phone] Wu: Syncope, unspecified syncope type [R55]CardiologyComment on above:Dx: Syncope, unspecified syncope type [R55]Start: 08-13-2024 End: 75-47-8713Xkdmgot encounter /22/2025 10:30 AM EDT Office Visit Cardiology [address] [place], [place] [phone] Kf: Syncope, unspecified syncope type [R55]CardiologyComment on above:Dx: Syncope, unspecified syncope type [R55]Start: 08-01-2024 End: 90-79-7011Azataap encounter jpnlevcny73/10/2025 2:30 PM EDT Office Visit [facility] [address] [facility] [address] [place] [address] Giovani Hagen MD [address] [facility] [address] [place] [address] [facility] CI FMStart: 07-26-2024 End: 62-19-9630ubjbvbjgdj69/04/2025 8:40 AM EDT [facility] [address] [place] [address] [place] [address] [place] [id number] Elevated LFT, per PtGastroenterologyComment on above:Elevated LFT, per PtStart: 07-24-2024 End: 61-13-5623Baujstm encounter wvofniigd99/02/2025 3:50 PM EDT Office Visit [facility] [address] [place] [address] Milton Fraire, DPM FACFAS [address] [place] [address] [facility] NMA PODStart: 07-04-2024 End: 61-76-5098Hcrebzq encounter fxredzupz74/13/2025 3:30 PM EDT Office Visit [facility] [address] [facility] [address] [place] [address] Giovani Hagen MD [address] [facility] [address] [place] [address] NOMS CI FMStart: 07-03-2024 End: 53-36-4306Ksavcnh encounter cgucaqdzn45/12/2025 2:20 PM EDT Office Visit [facility] NMA POD [address] [place] [phone] Milton Fraire, DPM FACFAS [address] [place] [address] NOMS NMA PODStart: 81-89-3643Hkyginagym A1c measurement Diabetes: Hemoglobin L3IBEMM HealthcareStart: 06-26-2024 End: 10-82-6935Fnwhbiw encounter dylpvodep72/05/2025 2:50 PM EST Office Visit [facility] NMA POD [address] [place] [phone] Milton Fraire, DPM FACFAS [address] [place] [address] NOMS NMA PODStart: 06-25-2024 End: 31-62-5192Qrihbbl encounter procedureNOMS BCP OBComment on above:Arrived Start: 06-24-2024 End: 38-54-5843Yjaebpp encounter /03/2025 10:40 AM EST Office Visit [facility] NMA POD [address] [place] [phone] Milton Fraire, DPM FACFAS [address] [place], [place] [phone] NOMS NMA PODStart: 06-19-2024 End: 00-27-4383Yqylvee encounter procedureNOMS SC PODComment on above:Arrived Start: 06-17-2024 End: 57-60-2188Tvrlzwk encounter rcyxzggre30/24/2025 10:30 AM EST Office Visit Orthopaedics [address] [address] Naren Verdugo PA-C [address] [place], [place] [phone] 1st post op Rt ankle arthroscopy/internal brace 06/04/24 OrthopaedicsComment on above:1st post op Rt ankle arthroscopy/internal brace 06/04/24Start: 06-12-2024 End: 40-19-7987xjwmfvyeim43/19/2025 1:45 PM EST Results Only Cardiology [address] [place] [address] Dx: Syncope, unspecified syncope type [R55]CardiologyComment on above:Dx: Syncope, unspecified syncope type [R55] Start: 06-12-2024 End: 07-13-8830Cbwmpta encounter procedureCardiologyComment on above:Dx: Syncope, unspecified syncope type [R55]Start: 06-10-2024 End: 60-66-2669Usutxhi encounter bktwktseu39/17/2025 9:40 AM EST Appointment [facility] [address] [facility] [address] [place] [phone] Rosario Mcconnell I, MD [address] [facility] [address] [place] [address] [facility] - CORCEPTNortRedwood LLC Gastroenterology and Endoscopy CenterComment on above:CRIOH RESEARCH - CORCEPTStart: 06-04-2024 End: 54-62-4477Mjutxyj encounter jpbgylpit63/11/2025 9:40 AM EST Office Visit [facility] NMA POD [address] [place] [address] Milton Fraire, DPM FACFAS [address] [facility] [place] [address] NOMS NMA PODStart: 06-04-2024 End: 39-59-9842Gtzlxblmu to same day surgery nysxhy6806/04/2024 7:30 AM EST - 06/04/2024 10:10 AM EST Surgery [facility] [address] [place] [address] Lydia Kelley DO [address] [place] [address] REPAIR ANKLE LIGAMENT SECONDARY DISRUPTED, COLLATERALCleveland Clinic Mercy [facility] SurgeryComment on above:REPAIR ANKLE LIGAMENT SECONDARY DISRUPTED, COLLATERALStart: 06-04-2024 End: 09-17-4225Axauic secondary disrupted ligament ankle coltrlREPAIR ANKLE LIGAMENT SECONDARY DISRUPTED, COLLATERAL Right ankle instability 06/04/2024 7:30 AM ESTME ORStart: 84-79-7363Ovieuhsckz hospital visit by nnzyakezc97/11/2025 7:30 AM EST Hospital Encounter [facility] [address] [place] [address] Lydia Kelley DO [address] [place] [address] 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][facility] SurgeryComment on above: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]Start: 05-31-2024 End: 04-26-0871zrkrokohay19/07/2025 1:15 PM EST [facility] [address] [place] [address] Lydia Kelley DO [address] [place] [address] 4 week f/u, right ankleOrthopaedicsComment on above:4 week f/u, right ankleStart: 05-31-2024 End: 17-42-2644Qfkzxef encounter /07/2025 9:45 AM EST Office Visit Orthopaedics [address] [place] [address] Lyida Kelley, [address] [place] [address] 4 week f/u, right ankleOrthopaedicsComment on above:4 week f/u, right ankleStart: 05-29-2024 End: 78-19-4184Elsieje encounter procedureNOMS BCP OBComment on above:Arrived Start: 05-22-2024 End: 25-61-3679Wjpvmfs encounter kwbquaywl87/29/2025 2:30 PM EST Appointment Ambulatory Surgery [address] [place] [address] [place] [address] [place] [address] BRBPR (bright red blood per rectum) [K62.5]Ambulatory Surgery Comment on above:BRBPR (bright red blood per rectum) [K62.5]Start: 05-15-2024 End: 60-29-5393Yuuetwf encounter procedureNOMS NMA PODComment on above:Arrived Start: 05-08-2024 End: 20-95-6676Cksxucp encounter fzprhnhgo31/15/2025 3:10 PM EST Office Visit [facility]S SC POD [address] [place] [phone] Prateek Pitts, DPM [address] [address] NOMS SC PODStart: 05-05-2024 End: 50-72-4776Jpweqcpbjm zefuevbzwvcr61/12/2025 11:59 PM EST Anesthesia Event Ambulatory Surgery [address] [place] [address] Sharla Bonds APRN.CHIEF PRIVACY OFFICER [address] [place], [place] [address]Esupfwkihn SurgeryStart: 05-02-2024 End: 36-36-4562abxsdgnxks27/09/2025 12:00 PM EST Procedure Gastroenterology [address] [place] [address] efawedeadYjsbgrcynzvfwoklBbutwwr on above:fibroscanStart: 05-01-2024 End: 10-39-8464Zuijzva encounter olgubpoqh85/08/2025 4:30 PM EST Office Visit NOMS TALI POD [address] [place] [address] Prateek Pitts, DPM [address] [address] NOMS SC PODStart: 04-30-2024 End: 83-68-7337Jaizbeg encounter procedureNOMS BCP OBComment on above:Arrived Start: 04-26-2024 End: 68-15-5780Osplhkf encounter lkaskmkyt48/03/2025 3:05 PM EST Office Visit Gastroenterology [address] [place] [address] Iliana Mercaod PA-C [address] [place] [address] Elevated LFT, per PtGastroenterologyComment on above:Elevated LFT, per PtStart: 04-26-2024 End: 79-34-9921Fbxms 1 antitrypsin [Mass/volume] in Serum or PlasmaUniversity Hospitals Portage Medical CenterComment on above:Expected: 04/26/2024, Expires: 07/26/2024Start: 04-26-2024 End: 02-31-7198Wktov-1-Fetoprotein [Mass/volume] in Serum or PlasmaCleSelect Medical Specialty [facility] Work Phone: comment on above:Expected: 04/26/2024, Expires: 07/26/2024Start: 04-26-2024 End: 42-34-0836WPM BY IFA WITH REFLEXUniversity Hospitals Portage Medical CenterComment on above:Expected: 04/26/2024, Expires: 07/26/2024Start: 04-26-2024 End: 30-72-0686Ehnpbzngrjxtk [Mass/volume] in Serum or PlasmaCleMcCullough-Hyde Memorial Hospital Comment on above:Expected: 04/26/2024, Expires: 07/26/2024Start: 04-26-2024 End: 20-94-5639Ftmbschly A virus IgM Ab [Presence] in [facility] Comment on above:Expected: 04/26/2024, Expires: 07/26/2024Start: 04-26-2024 End: 54-68-6535Xakuspfrw B virus core IgM Ab [Presence] in [facility] Comment on above:Expected: 04/26/2024, Expires: 07/26/2024Start: 04-26-2024 End: 77-84-2681Yntckqgcp B virus surface Ag [Presence] in [facility] Comment on above:Expected: 04/26/2024, Expires: 07/26/2024Start: 04-26-2024 End: 38-55-7270Hznbkbdtl C virus Ab [Presence] in [facility] Medical CenterComment on above:Expected: 04/26/2024, Expires: 07/26/2024Start: 04-26-2024 End: 29-07-8316Fjwifvcdojqf Ab [Presence] in Serum by Immunofluorescence [facility] Portage Medical CenterComment on above:Expected: 04/26/2024, Expires: 07/26/2024Start: 04-26-2024 End: 88-87-1792Kjcqsw muscle Ab [Presence] in SerumUniversity Hospitals Portage Medical CenterComment on above:Expected: 04/26/2024, Expires: 07/26/2024Start: 04-03-2024 End: 88-14-0186Estuafrton A1c/Hemoglobin.total in BloodHemoglobin A1c Lab Routine Elevated blood sugar Expected: 04/03/2024 (Approximate), Expires: 04/03/2025NOSC HealthcareComment on above:Expected: 04/03/2024 (Approximate), Expires: 04/03/2025Start: 04-03-2024 End: 68-21-0819JT Shoulder - left WO contrastMR shoulder left wo IV contrast Imaging Routine Acute pain of left shoulder Expected: 04/03/2024, Expires: 04/03/2025NOS[facility] HealthcareComment on above:Expected: 04/03/2024, Expires: 04/03/2025Start: 04-03-2024 End: 43-16-8778Cuesyednn [Moles/volume] in Serum or PlasmaPotassium Lab Routine Hypokalemia Expected: 04/03/2024 (Approximate), Expires: 04/03/2025[facility] Work Phone: Comment on above:Expected: 04/03/2024 (Approximate), Expires: 04/03/2025Start: 04-01-2024 End: 70-34-4296Xobkabs encounter airxwkrle56/09/2024 8:30 AM EST Office Visit NOMS CI FM [address] [facility] [address] [place] [address] Giovani Hagen MD [address] [place] [address] [place] [address] NOMS CI FMStart: 03-27-2024 End: 59-15-0460uksuhdzuvf04/04/2024 4:00 PM EST Treatment NOMS CI PT [address] [facility] [address] [place] [address] Zhen Burgess, PT [address] [facility] [address] [place] [address] NOMS CI PTStart: 03-25-2024 End: 11-11-6624sdipaqqpvc47/02/2024 4:00 PM EST Treatment NOMS CI PT [address] [facility] [address] [place] [address] Arun Triana, CINDY NOMS CI PTStart: 03-20-2024 End: 20-51-6815Wjklnjg encounter uvjeegmzb57/27/2024 4:00 PM EST Office Visit NOMS BCP OB [address] [place] [address] Darwin Starr DO [address] [place] [address] NOMS BCP OBStart: 03-19-2024 End: 30-70-9414caskkifhbh78/26/2024 4:00 PM EST Treatment NOMS CI PT [address] [facility] [address] [place] [address] Anitra Ricci, INTERNAL SALESPERSON NOMS CI PTStart: 03-13-2024 End: 18-59-5843fwtijhhgir37/20/2024 4:30 PM EST Treatment NOMS CI PT [address] [facility] [address] [place] [address] Zhen Burgess, PT [address] [facility] [address] [place] [address] NOMS CI PTStart: 03-11-2024 End: 99-52-7827jagjvgquivHRZH CI PTComment on above:ArrivedStart: 03-06-2024 End: 62-13-5060hsafprgifhPYSO CI PTStart: 03-04-2024 End: 23-90-7094savpfknoef09/11/2024 9:00 AM EST Treatment N[facility]S CI PT [address] [facility] [address] [place] [address] Arun Triana, INTERNAL SALESPERSON NOMS CI PTStart: 02-29-2024 End: 43-58-5442nhygorippxUXAW CI PTComment on above:ArrivedStart: 02-27-2024 End: 73-80-4048ogtmdajmxwTCLD CI PTComment on above:ArrivedStart: 02-21-2024 End: 90-28-3760vdmxjzyzdk93/30/2024 4:30 PM EDT Treatment NOMS CI PT [address] [facility] [address] [place] [address] Anitra Ricci, INTERNAL SALESPERSON NOMS CI PTStart: 02-14-2024 End: 11-09-4005gsnevxandtCUNZ CI PTStart: 02-13-2024 End: 38-43-6245Yrycbau encounter procedureCardiologyComment on above:Dx: Syncope, unspecified syncope type [R55]Start: 02-13-2024 End: 03-22-2220katlakalas86/22/2024 2:00 PM EDT Results Only Cardiology [address] [place] [address] Dx: Syncope, unspecified syncope type [R55]CardiologyComment on above:Dx: Syncope, unspecified syncope type [R55] Start: 02-12-2024 End: 36-42-3561jkdvsddtmoWKBF CI PTComment on above:ArrivedStart: 02-07-2024 End: 54-13-0073ojvcjflbpxZWYD CI PTComment on above:ArrivedStart: 02-05-2024 End: 76-71-7767gskzlktiblPIVO CI PTComment on above:Cervical radiculopathyStart: 01-22-2024 End: 61-66-3320Jrcshdi encounter oojhjwqmx34/30/2024 1:50 PM EDT Office Visit NOMS BCP [address] [facility] [place] [address] Darwin Starr DO [address] [facility] [place] [address] NOMS BCP OBStart: 01-09-2024 End: 07-99-2239Gkuaydo encounter lalmdzliz22/17/2024 4:00 PM EDT Office Visit NOMS CI FM [address] [facility] [address] [place] [address] Giovani Hagen MD [address] [facility] [address] [place] [address] NOMS CI FMStart: 01-09-2024 End: 98-42-0536LK Cervical spine WO contrastMR cervical spine wo contrast Imaging Routine Cervical radiculopathy Expected: 01/09/2024, Expires:01/08/2025 NOMS HealthcareComment on above:Expected: 01/09/2024, Expires: 01/08/2025Start: 01-09-2024 End: 15-28-7980FI Cervical spine 2 or 3 ViewsXR cervical spine 2 or 3 views Imaging Routine Cervical radiculopathy Expected: 01/09/2024, Expires: 01/08/2025 [facility] Work Phone: Comment on above:Expected: 01/09/2024, Expires: 01/08/2025Start: 55-41-5053Qtrgo-19 Vaccine ()Covid-19 Vaccine ()[facility]: 43-80-4036Qglrn-19 Vaccine ()Covid-19 Vaccine ()[facility]: 01-29-7327Zdbngbprv vaccinationInfluenza Vaccine (#1)[facility]: 12-19-2023 End: 24-85-7534tgzqhvbhbw61/27/2024 2:15 PM EDT Results Only Cardiology [address] [place] [address] Exertional Syncope. Referring: Dr. Shilo BurnsdCardiologyComment on above:Exertional Syncope. Referring: Dr. Shilo Sweeneytart: 12-19-2023 End: 42-69-8151Uvjjxdx encounter procedureCardiologyComment on above:Exertional Syncope. Referring: Dr. Shilo Sweeneytart: 10-05-8489Qtfij screening for proteinDiabetes: Urine Protein ScreeningUniversity of Missouri Health CareStart: 04-24-2023 Behavioral Health ScreeningBehavioral Health ScreeningSamaritan Hospitaltart: 75-63-9903Khrqn-19 Vaccine ()Covid-19 Vaccine ()[facility]: 02-38-3523Xrfjizchg vaccinationUniversity Hospitals Portage Medical Center Start: 49-44-3802VvgmcpzpeRegency Hospital Cleveland Easttart: 90-98-2028KBRCEWLVLZ ASSESSMENTDEPRESSION ASSESSMENTSamaritan Hospitaltart: 15-61-2091YBVLN-19 VACCINE (4 - Booster for Pfizer series)COVID-19 VACCINE (4 - Booster for Pfizer series) [facility]: 73-65-8258DHRQH-19 VACCINE (4 - Pfizer series)COVID-19 VACCINE (4 - Pfizer series)[facility]: 09-91-1631Vtysjaixx vaccinationINFLUENZA (#1)[facility]: 01-17-1435Nlake microalbumin profileDTaP,Tdap,Td Vaccine (6 - Td or Tdap)[facility]: 89-06-8769MDV TESTINGHPV TESTINGSamaritan Hospitaltart: 60-07-8346YLI TESTINGPAP TESTING [facility]: 35-87-7985Ptrvbmbvd for malignant neoplasm of cervix Cervical Cancer ScreeningSamaritan Hospitaltart: 17-25-7599Pqkmyakzz A Vaccines (1 of 2 - Risk 2-dose series)Hepatitis A Vaccines (1 of 2 - Risk 2-dose series) [facility] HealthcareStart: 89-69-9055Tomxibpntlpr Vaccine: Pediatrics (0 to 5 Years) and At-Risk Patients (6 to 64 Years) (1 of 2 - PCV)Pneumococcal Vaccine: Pediatrics (0 to 5 Years) and At-Risk Patients (6 to 64 Years) (1 of 2 - PCV) [facility] HealthcareStart: 13-77-0689Sbenk microalbumin profileDTAP,TDAP,TD (1 - Tdap)[facility]: 89-07-3583CXX Vaccine (2 - 3-dose series)HPV Vaccine (2 - 3-dose series)[facility]: 54-43-2034YUP Vaccines (2 - 3-dose series)HPV Vaccines (2 - 3-dose series)[facility] HealthcareStart: 31-20-3856Mequvba ScreeningAnxiety ScreeningSamaritan Hospitaltart: 44-19-0024Wbfzwcorgv Screening Depression ScreeningSamaritan Hospitaltart: 23-03-8369LRIMGNUZU C SCREENING HEPATITIS C SCREENINGSamaritan Hospitaltart: 16-20-2863Qartjeajw C screening Hepatitis C ScreeningSamaritan Hospitaltart: 66-43-4252DRL SCREENINGHIV SCREENING [facility]: 42-77-8520ANI screeningHIV ScreeningUniversity Hospitals Portage Medical Center Start: 24-54-7587Jpxedvkf screeningDiabetes: Retinopathy ScreeningOREM COMMUNITY [facility] HealthcareStart: 33-45-3609Stzwoma of varicella vaccinationVaricella Vaccines (2 of 2 - 2-dose childhood series)[facility] HealthcareStart: 55-92-0835KBONTJPNB B (1 of 3 - 3-dose series)HEPATITIS B (1 of 3 - 3-dose series)[facility]25- hydroxyvitamin D3 [Mass/volume] in Serum or PlasmaVitamin D 25 hydroxy Total Lab Routine Weight gain Ordered: 12/12/2024[facility] HealthcareComment on above:Ordered: 5Actin smooth muscle IgG Ab [Units/volume] in SerumBlanchard Valley Health System [facility]uff[facility] End: 65-86-6084QVLVA [place] ANORECTAL MANOMETRYCINCINNATI [facility] ANORECTAL MANOMETRY Endoscopy Routine Pelvic floor dysfunction Chronic constipation 1 Occurrences starting 10/09/2024 until 10/09/2025[facility] Work Phone: Comment on above:1 Occurrences starting 10/09/2024 until 6ADULT [place] ANORECTMA MANOMETRYADADVENTHEALTH [facility] ANORECTMA MANOMETRY Endoscopy Routine Pelvic floor dysfunction Chronic constipation 10/15/2024 [facility] Work Phone: Alpha 1 antitrypsin [Mass/volume] in Serum or Plasma [facility] HospitalAlpha 1 antitrypsin phenotyping [Identifier] in Serum or Plasma by ImmunofixationBlanchard Valley Health System Bluffton HospitalCBC W Auto Differential panel - BloodCBC and differential Lab Routine Weight gain History of alcohol dependence (HCC) Other fatigue Ordered: 12/12/2024[facility] Healthcare Comment on above:Ordered: 5Ceruloplasmin [Mass/volume] in Serum or PlasmaBlanchard Valley Health System Bluffton HospitalCHLAMYDIA TRACHOMATIS (GENITO/STI) CHLAMYDIA TRACHOMATIS (GENITO/STI) Lab Routine Pain in female genitalia on intercourse Cystitis Ordered: 06/25/2024[facility] HealthcareComment on above:Ordered: 06/25/2024 End: 53-84-9893GYEJIKKHMUN DIFFICILE TOXIN BY EIAUniversity Hospitals Portage Medical CenterComment on above:ONCE for 1 Occurrences starting 05/23/2024 until 5Cobalamin (Vitamin B12) [Mass/volume] in Serum or PlasmaVitamin B12 Lab Routine Elevated liver enzymes Weight gain History of alcohol dependence (HCC) Other fatigue Ordered: 12/12/2024[facility] HealthcareComment on above:Ordered: 12/12/2024 Comprehensive metabolic 2000 panel - Serum or PlasmaComprehensive metabolic panel Lab Routine Elevated liver enzymes Hypokalemia Weight gain History of alcohol dependence (HCC) Impaired fasting glucose Ordered: 12/12/2024[facility] HealthcareComment on above:Ordered: 12/12/2024 End: 04-74-9098Wb abdomen & pelvis w/o contrast materialCT ABD/PEL WO IVCON Radiology Routine Bilious vomiting with nausea Right sided abdominal pain Nausea 1 Occurrences starting 05/27/2022 until 06/26/2023[facility] Work Phone: comment on above:1 Occurrences starting 05/27/2022 until 06/26/2023 End: 92-32-0266TB Guidance for core needle biopsy of LiverLIVER BIOPSY NEEDLE Endoscopy Routine ENGLISH (nonalcoholic steatohepatitis) 1 Occurrences starting until 05/14/2025[facility] Work Phone: comment on above:1 Occurrences starting 05/14/2024 until 05/14/2025ytology Cervical or vaginal smear or scraping studyPap Smear Pathology and Cytology Routine Well woman exam with routine gynecological exam Ordered: 03/20/2024[facility] Work Phone: comment on above:Ordered: 03/20/2024 End: 64-73-5029YMQ COMPLETEECG COMPLETE ECG Routine Gastroparesis 1 Occurrences starting 11/02/2023 until 11/01/2024[facility] Work Phone: comment on above:1 Occurrences starting 11/02/2023 until 11/01/2024 End: 77-39-6679SQP COMPLETEECG COMPLETE ECG Routine Syncope and collapse 1 Occurrences starting 12/19/[address] [place] [address] Work Phone: comment on above:1 Occurrences starting 12/19/2023 until 12/18/2024 End: 02-96-2411MBC DIAGNOSTICEGD DIAGNOSTIC Endoscopy Routine Bilious vomiting with nausea Right sided abdominal pain 1 Occurrences starting 05/27/[address] [place] [address] Work Phone: comment on above:1 Occurrences starting 05/27/2022 until 05/27/2023Electrogastrography dx transcutaneousEGG (ELECTROGASTROGRAPHY) Procedures Routine Gastroparesis Ordered: 3CMount Carmel Health System Work Phone: comment on above:Ordered: 09/14/2022ENTERIC BACTERIAL PANEL BY PCRSelect Medical [facility]health [facility] Work Phone: comment on above:Release Upon Ordering for 1 Occurrences starting 05/22/2024 End: 01-99-8186Mwatlxpd sigmoidoscopy studyCOLONOSCOPY DIAGNOSTIC Endoscopy Routine BRBPR (bright red blood per rectum) 1 Occurrences xahvpvpp40/03/2025 until 04/26/2025leveland ClinicComment on above:1 Occurrences starting 04/26/2024 until 04/26/2025Folate [Mass/volume] in Serum or PlasmaFolate Lab Routine Elevated liver enzymes Weight gain History of alcohol dependence (HCC) Other fatigue Ordered: 12/12/2024[facility] HealthcareComment on above:Ordered: 12/12/2024Hemoglobin A1c/Hemoglobin.total in BloodHemoglobin A1c Lab Routine Weight gain Impaired fasting glucose Ordered: 12/12/2024[facility] HealthcareComment on above:Ordered: 12/12/2024Hepatitis A virus Ab [Presence] in Serum by ImmunoassayBlanchard Valley Health System Bluffton HospitalHFE gene mutations found [Identifier] in Blood or Tissue by Molecular genetics method NominalBlanchard Valley Health System Bluffton HospitalHomogenous nuclear Ab pattern [Titer] in SerumBlanchard Valley Health System Bluffton HospitalHuman papilloma virus DNA [Presence] in Unspecified specimen by Probe with amplificationHPV DNA probe, amplified Microbiology Routine Well woman exam with routine gynecological exam Ordered: 03/20/2024[facility] HealthcareComment on above:Ordered: 03/20/2024IgG [Mass/volume] in Serum or PlasmaBlanchard Valley Health System Bluffton HospitalIron + transferrin + TIBCIron + transferrin + TIBC Lab Routine Elevated liver enzymes Weight gain Other fatigue Ordered: 12/12/2024[facility] HealthcareComment on above:Ordered: 12/12/2024 Lipoprotein a [Moles/volume] in Serum or PlasmaBlanchard Valley Health System [facility]uff[facility] Hospital Liver ultrasound attenuation by transient elastographyDDI VIBRATION CONTROLLED TRANSIENT ELASTOGRAPHY (VCTE) Endoscopy Routine Elevated LFTs Ordered: leveland ClinicComment on above:Ordered: 04/26/2024Mitochondria M2 IgG Ab [Units/volume] in SerumBlanchard Valley Health System Bluffton HospitalNeisseria gonorrhoeae DNA [Presence] in Unspecified specimen by SHEILA with probe detectionNeisseria gonorrhea DNA probe, direct Lab Routine Pain in female genitalia on intercourse Cystitis Ordered: 06/25/2024[facility] HealthcareComment on above:Ordered: 06/25/2024 Nuclear Ab [Titer] in SerumBlanchard Valley Health System Bluffton HospitalOUTSIDE VENDOR CARDIAC OUTPATIENT EXTENDED RHYTHM RECORDING (WITHOUT TELEMETRY)OUTSIDE VENDOR CARDIAC OUTPATIENT EXTENDED RHYTHM RECORDING (WITHOUT TELEMETRY) Holter Routine Syncope, unspecified syncope type Ordered: 12/19/2023[facility] HospitalComment on above:Ordered: 12/19/2023atient EducationDepression in adults - Discharge instructions [facility] Behavioral Health DC Instructions Know your [facility] Work Phone: [facility] Work Phone: End: 52-72-0871GUCVCW ECHO TREADMILLSTRESS ECHO TREADMILL Cardiology Routine Syncope, unspecified syncope type 1 Occurrences starting 12/19/2023 until 12/18/2024[facility] Work Phone: comment on above:1 Occurrences starting 12/19/2023 until 12/18/2024SURESWAB(R) ADVANCED VAGINITIS PLUS, TMASURESWAB(R) ADVANCED VAGINITIS PLUS, TMA Pathology and Cytology Routine Pain in female genitalia on intercourse Cystitis Ordered: 06/25/2024[facility] [employer] Work Phone: comment on above:Ordered: 06/25/2024SURGICAL PATHOLOGY [facility] Medical CenterComment on above:Release Upon Ordering for 1 Occurrences starting 05/22/2024, 1 completedTSH W/REFLEX TO FT4TSH W/REFLEX TO FT4 Lab Routine Weight gain History of alcohol dependence (HCC) Other fatigue Ordered: 12/12/2024[facility] HealthcareComment on above:Ordered: 12/12/2024 End: 77-31-6213Sr abdominal real time w/image limitedUS ABD RT UPPER QUADRANT Radiology Routine Liver lesion 1 Occurrences starting 06/14/2022 until 06/23[facility] Work Phone: comment on above:1 Occurrences starting 06/14/2022 until 07/14/2023Vitamin J9Tdfxsos B1 Lab Routine Elevated liver enzymes Weight gain History of alcohol dependence (HCC) Ordered: 12/12/2024[facility] [employer] Comment on above:Ordered: 12/12/2024Vitamin Y5Wyctlyh B6 Lab Routine Elevated liver enzymes Weight gain History of alcohol dependence (HCC) Ordered: 12/12/2024[facility] Work Phone: Comment on above:Ordered: 12/12/2024XR Abdomen Supine and UprightXR ABDOMEN 2V ROUTINE SUPINE W UPRIGHT/DECUB/CTL Radiology Routine Chronic idiopathic constipation 07/10/2024 11:30 AM [facility] Work Phone: End: 69-84-3739FB Abdomen Supine and UprightXR ABDOMEN 1V SUPINE Radiology Routine Pelvic floor dysfunction Chronic constipation 3x per week for 3 Occurrences starting 10/09/2024 until 11/08/2025[facility]:3x per week for 3 Occurrences starting 10/09/2024 until 11/08/2025 [facility] Immunizations Immunization DateImmunizationNotesCare FlerlijyYlpiwgsb46-83-1759byekbsm toxoid, reduced diphtheria toxoid, and acellular pertussis vaccine, Román Hagen MD Work Phone: [facility] CareYykocyyoqz63-17-3414HJVZ-UiB-2 mRNA (vnhfnvpbqvh-tktk-vlwbkje) [email or web address].ng [facility]-2022SARS-CoV-2 (COVID-19) mRNA BNT-162b2 [email or web address].ng [facility]11-10-2021SARS-CoV-2 (COVID-19) mRNA BNT-162b2 [email or web address].ng [facility] HospitalyComment on above:Result Comment: 2022-06-29: CGDDY27-13-8569ocizttbpw virus vaccine, unspecified [email or web address].ng [facility] [place] 938590-19-2021influenza, injectable, quadrivalent, preservative freeJeremy Blackston PT Work Phone: [facility] CarePkneulbddu84-60-5780umqhlhyvy virus vaccine, unspecified formulationPaPrediculous [facility] [place] 938591-23-2020Influenza, injectable, Madin Carson Canine Kidney, preservative free, quadrivalentJeremy Blackston PT Work Phone: [facility] CareArozvmamdc03-19-3040gokjlfgew virus vaccine, unspecified formulationPaPrediculous [facility]09-17-2018influenza, injectable, quadrivalent, contains preservative Zhen Blackston PT Work Phone: [facility] CareFolitiymji98-39-9838yngasdhkd, injectable, quadrivalent, preservative freeJeremy Blackston PT Work Phone: [facility] CareXuwnsvlxpe79-88-4058wnenhonmm virus vaccine, unspecified formulationPaPrediculous [facility] [place] 938590-11-2017Influenza, injectable, Madin Jenn Canine Kidney, preservative free, quadrivalentJeremy Blackston PT Work Phone: [facility] CareKywuqhhlqh87-21-1399cnjxzbjdn virus vaccine, unspecified formulationPaPrediculous [facility] [place] 938592-02-2016influenza, injectable, quadrivalent, preservative freeJeremy Blackston PT Work Phone: [facility] CareVmfrqbdfbw28-28-5881bewqscj toxoid, reduced diphtheria toxoid, and acellular pertussis vaccine, adsorbedPaPrediculous [facility]09-14-2007hepatitis B vaccine, pediatric or pediatric/adolescent dosage Madhuri ORTIZ [facility]07-12-2007hepatitis B vaccine, pediatric or pediatric/adolescent dosage Madhuri ORTIZ [facility]07-12-2007HPV, unspecified formulationArtesia General Hospital [facility]07-12-2007human papilloma virus vaccine, quadrivalentJemona Valentinbacharach institute for rehabilitation PT Work Phone: [facility] CareIxxaphkdzl15-91-1956sxwybvbvmdvxp ACWY vaccine, unspecified formulationNew Horizons Medical CenterbyUs [facility]07-12-2007meningococcal polysaccharide (groups A, C, Y and W-135) diphtheria toxoid conjugate vaccine (MCV4P)Zhen Burgess PT Work Phone: [facility] CareMuuukkvupe03-65-5568cfwxangnj B vaccine, pediatric or pediatric/adolescent dosageCtebony ORTIZ [facility]09-06-1994diphtheria, tetanus toxoids and pertussis vaccineZhen Burgess PT Work Phone: [facility] CareFtltadprrv94-53-1577kvhhzgajmn, tetanus toxoids and pertussis vaccineZhen Valentinbacharach institute for rehabilitation PT Work Phone: [facility] CareHlvwfjwpsu39-37-7965gqxealy, mumps and rubella virus vaccineNew Horizons Medical CenterBioStable ORTIZ [facility]08-16-1993trivalent poliovirus vaccine, live, oralJemona Burgess PT Work Phone: [facility] CareVyiqgclahh01-36-9800zlkmeztdit, tetanus toxoids and pertussis vaccineZhen Burgess PT Work Phone: [facility] CareJnnfwgxjni11-43-8582uhkjfqo, mumps and rubella virus vaccinePaebony ORTIZ [facility]02-16-1993trivalent poliovirus vaccine, live, oralJeremy Lupe PT Work Phone: [facility] CareTyctjskyfq69-17-6411hvjtksgyl virus vaccine Madhuri ORTIZ [facility]02-27-1991diphtheria, tetanus toxoids and pertussis vaccineJeremy Lupe PT Work Phone: [facility] CareIvgaojuvec44-97-4812szdfvjpbv poliovirus vaccine, live, oralJeremy Lupe PT Work Phone: [facility] CarePmfklwpgkv17-88-8309dxopujfbo poliovirus vaccine, live, oralJeremy Lupe PT Work Phone: [facility] CareNEGATED: Highlighted row has not occurred!54-92-3246qazwjvons virus vaccine, live, attenuated, for intranasal use Madhuricecille ORTIZ [facility] HospitalGATED: Highlighted row has not occurred!95-90-5888qzmbggieu virus vaccine, live, attenuated, for intranasal usePaebony ORTIZ [facility] Payers DatePayer CategoryPayerPolicy [id number]-qbn [id number] Health Insurance [id number].57011-61-5332Lrxufea 1.2.840.066681.1.13.159.2.7.3.83847[id number] 2.16.840.1.870321.3.579.2.26251-40-1022Tzcopat3285044 2.16840.1.485150.3.579.2.31680-70-2824Nhgimmo6478636 2.16840.1.021480.3.579.2.76558-98-5498Bhzxivl4966330 2.16840.1.635510.3.579.2.22824-35-3281Wfdlrua5734510 2.16840.1.798329.3.579.2.07702-84-6227Zjuxkkf4670847 2.840.1.475228.3.579.2.95361-98-5714Nfoyvhb3601359 2.840.1.734253.3.579.2.97008-66-0656Wslcmom5302121 2.840.1.173618.3.579.2.73239-49-9861Kagltyn6485055 2.840.1.161476.3.579.2.73287-74-8854Tskykaw1070627 2.840.1.429008.3.579.2.17808-94-6888Nlpmwbt5404843 2.840.1.600368.3.579.2.85451-51-3111Usumdre0841620 2.840.1.124357.3.579.2.89053-32-6343Tpmwhlv2908957 2.840.1.556667.3.579.2.98817-00-6621Mobasws4566055 2.840.1.244199.3.579.2.44358-93-3922Hrrdugg81056611 2.840.1.423832.3.579.2.51306-64-6689Qptjryi85784086 2.840.1.677950.3.579.2.12147-28-0841Zskjwsp61491942 2.16840.1.031417.3.579.2.67748-27-9122Vfxjycu85646374 2.16840.1.045230.3.579.2.59713-53-1647Srpvxwb04477130 2.16840.1.882932.3.579.2.68765-25-6767Zpapsgo99957194 2.160.1.225163.3.579.2.33642-75-2894Rrxkqza47336311 2..1.677945.3.579.2.681121-25-3652Dzszgfa85591038 2..1.061925.3.579.2.421152-03-0526Rjwlcxu05831470 2..1.527225.3.579.2.351327-99-8837Lvkxztk17682555 2..1.443334.3.579.2.887950-73-5433Qxolecs38507786 2..1.283373.3.579.2.882357-78-9126Zlazsym77889295 2..1.588057.3.579.2.374679-53-6177Rlvjuex67099970 2..1.421609.3.579.2.053534-85-7653Xkaizfr78555393 2..1.086251.3.579.2.942266-23-4517Zyubytm60826676 2..1.790040.3.579.2.101207-49-5773Cslhwif86541589 2.0.1.582759.3.579.2.455668-72-1864Mlsmcwx58474270 2.16.840.1.252071.3.579.2.866970-41-4623Tcakqkv16057170 2.16.840.1.752805.3.579.2.632133-60-5867Hcwript69911282 2.16.840.1.443693.3.579.2.855966-88-0451Jadaldx00599322 2.16.840.1.906656.3.579.2.670182-39-6470Bjsmjzf18128989 2.16.840.1.880242.3.579.2.115170-18-7821Ltwkdea15596652 2.16840.1.040920.3.579.2.455977-26-0317Eiirdtl4698416 2.16840.1.737740.3.579.2.579098-70-1571Heeowxy6252566 2.840.1.748161.3.579.2.127473-74-8153Gbqmcbu9247806 2.840.1.296739.3.579.2.904094-39-1777Ojhkdgn3853051 2.16840.1.878581.3.579.2.665590-94-7203Nefwwir2761902 2.16840.1.136851.3.579.2.626474-10-1017Pizmhep2153889 2.16840.1.228123.3.579.2.505140-53-2793Mecpyrj9916630 2.16840.1.720848.3.579.2.508503-90-4413Oxwsbvu8147469 2.16.840.1.513277.3.579.2.849057-34-7462Ymjrcmp4259437 2.16840.1.117006.3.579.2.665536-95-3843Qfvamvx2020527 2.0.1.156624.3.579.2.892908-03-0912Djqhvvh0735482 2.0.1.299825.3.579.2.051353-13-1974Ndantga7088308 2.0.1.501712.3.579.2.315954-42-3758Rywisyn8475352 2..1.514096.3.579.2.689622-62-6786Kbdpqov2988023 2..1.357277.3.579.2.087725-09-4486Dgknfby8303563 2..1.084841.3.579.2.938370-64-3350Mzeprff3753850 2..1.883124.3.579.2.820114-98-3862Swlstpn6831069 2..1.425618.3.579.2.166089-59-3094Soxboii1522949 2..1.141348.3.579.2.438245-36-7120Lykagqc2231549 2..1.370351.3.579.2.042606-07-7141Zfifjsi3112243 2..1.847611.3.579.2.155804-63-6989Vmmjelw2850837 2..1.715228.3.579.2.921414-64-6079Oeityob3267593 2..1.728628.3.579.2.858153-18-3373Jtjeogu1008567 2..1.311504.3.579.2.039200-03-2813Kpwtrmk3822983 2..1.851855.3.579.2.124499-36-2964Bbxhfbz8457869 2.16.840.1.366988.3.579.2.078317-67-3454Godzjzc2898825 2.16.840.1.023268.3.579.2.392127-43-1741Khckzhz5105521 2.16.840.1.998268.3.579.2.315053-43-0621Ipfhlqd9717875 2.16.840.1.606107.3.579.2.088147-81-6630Gdbjdrp1306507 2.16.840.1.914246.3.579.2.214862-99-8157Esheiim2307875 2.0.1.954928.3.579.2.282684-46-0116Ustkdpz0449838 2.0.1.712946.3.579.2.642167-56-2606Tsmmggv1995830 2.0.1.945694.3.579.2.268208-34-2452Wyikoht69963642Bxbheth837 [facility] [id number] 008984s8-594h-2j5h-jn64-k9960561lbqeQpktmjx91535818 2.0.1.402744.3.579.2.531 Social History DateTypeDetailFacilityTobacco smoking status NHISUnknown if ever smokedUniversity Hospitals Beachwood [facility] Work Phone: Start: 53-04-7562Eay [facility] 03-28-2019 End: 36-97-3390Sxvekxz smoking status NHISNever smoked tobaccoUniversity Hospitals Portage Medical [facility] Start: 05-27-2022 End: 29-05-1224Ggsmeek use and exposureSmokeless tobacco non-userSamaritan Hospitaltart: 05-27-2022 End: 89-02-8591Dpsluok intakeCurrent drinker of alcohol (finding)[facility] Hospitaltart: 90-08-3819Kxyaphz CommentsociallyCgerman hospital ClinicStart: 1988 Sex Assigned At BirthNot on fileSamaritan Hospitaltart: 11-02-2022 End: 51-53-0715Ghb Assigned At BirthSt. Elizabeth Hospitaltart: 06-29-2022 End: 89-33-1314Zsxyjri smoking statusEx-smoker (finding)[facility]: 01-24-2019 End: 67-81-4060Ffaecqk smoking statusNeverExec[facility] of [facility]: 11-02-2022 End: 32-00-9445Xbjxrdr of Social functionNOMS HealthcareStart: 02-61-7471Gxhhsq identityIdentifies as female gender (finding)[facility] Hospitaltart: 11-16-2021 End: 18-13-8660Iwltaxza to SARS-CoV-2 (event)Not sureSamaritan Hospitaltart: 57-49-2088Vpcwupj of tobacco useCurrent smokerNOMS HealthcareWithin the last year, have you been afraid of your partner or ex-partner?NoNOMS HealthcareDo you belong to any clubs or organizations such as amish groups, unions, fraternal or athletic groups, or school groups?YesNOMS HealthcareAre you now , , , , never or living with a partner?MarriedNOMS HealthcareHow often to you have a drink containing alcohol?2-4 times a month [facility] HealthcareHow many standard drinks containing alcohol do you have on a typical day?1 or 2NOMS HealthcareHow often do you have 6 or more drinks on 1 occasion?NeverNOMS HealthcareDo you feel stress - tense, restless, nervous, or anxious, or unable to sleep at night because yourmind is troubled all the time - these days [OSQ]Very muchNOMS Healthcare(I/We) worried whether (my/our) food would run out before (I/we) got money to buy more.Never trueNOMS HealthcareHow often do you have 6 or more drinks on 1 occasion?Less than monthlyNOSC HealthcareStart: 02-02-2013 End: 64-40-4610WoqJpfell (finding)[facility] HospitalHistory of tobacco useCigarette SmokerNOMS HealthcareSexual OrientationExec[facility] start: 29-72-0569Lkdgtxq smoking status NHISSmokes tobacco dailyNOMS Healthcare Goals DatePatient GoalDesired Activity/StatePersonal health goalPersonal health goal Functional Status XmymQvmthvbicyZogocnWdtrovdt20-32-4186Mhgxlvj Health Questionnaire 2 item (PHQ- 2) [Reported][facility] CareFwhjuhdust11-62-4699VKR-9 quick depression assessment panel [Reported.PHQ][facility] CareWjqohkfyxt05-82-1859Rvmwntd Health Questionnaire 2 item (PHQ- 2) [Reported][facility] CareLgehhalksq42-11-4980WJG-5 quick depression assessment panel [Reported.PHQ][facility] CareQasftpusyz13-62-8991Suoatxu Health Questionnaire 2 item (PHQ- 2) [Reported][facility] CareFsbqjxsquv73-66-5680AZX-9 quick depression assessment panel [Reported.PHQ][facility] CareOtscjchfhu67-29-5058Zmqcxzy Health Questionnaire 2 item (PHQ- 2) [Reported][facility] CareNigkkgkdur57-70-8438Knitsjq Health Questionnaire 2 item (PHQ- 2) [Reported][facility] CareMnwuvuluim90-52-0853Lghukhqhda statusPatient at Baseline [facility] Work Phone: [phone] 640-986603446720-90-1629Swwnazn Health Questionnaire 2 item (PHQ-2) [Reported][facility] CareQasaesruai47-77-0750Cjamt score [AUDIT-C]3 05/09/2024 9:30 AM EST Mychart, GenericNOMS Ocenxjcpgx33-76-0089Myg often do you have a drink containing alcohol?2-4 times a month 05/09/2024 9:30 AM EST Mychart, Generic 2-4 times a monthNOThe Rehabilitation Institute of St. LouisKtelttlsom64-74-7497Cta many standard drinks containing alcohol do you have on a typical day?1 or 2 05/09/2024 9:30 AM EST Mychart, Generic 1 or 2NOMS Kygieziupp93-01-4306Ghm often do you have 6 or more drinks on 1 occasion?Less than monthly 05/09/2024 9:30 AM EST Mychart, Generic Less than monthlyUniversity of Missouri Health CareVrnbapibwk93-54-8843Iheilqhwdc StatusN/AExecutive [facility] of [facility] Gvnqlqxw76-26-8680Enelevssht StatusN/AFisher [facility] Mental Status KvstCvbimmystwLgemmqIzjanbec04-33-7267Cjpuflgxt functionCognitive Status Patient at BaselineUniversity Hospitals Beachwood [facility] Center Work Phone: Clinical Notes 05-03-2022 to 02-27-2025 Note Date & GurjVjmeOchjseys74-81-0521 Telephone encounter Note* Telephone Encounter - VNIH Roque - 02/27/2025 2:11 PM EST OARRS reviewed, Rx sent into patient's pharmacy. [facility] CareVbumzgjatb97-98-5523 Miscellaneous Notes* Telephone Encounter - VINH Roque - 02/27/2025 2:11 PM EST OARRS reviewed, Rx sent into patient's pharmacy. documented in this encounterUniversity of Missouri Health CareAojpjduyaw41-80-2741 NoteHNO ID: [id number] Author: CAROL WINN MD Service: ? Author Type: Physician Type: Progress Notes Filed: 02/17/2025 09:26 Note Text: HPI: Orion Harper, 34 year old female, presents in the [...] due to worsening heartburn, but has since experienced weight gain. She also recently quit smoking and [...] biopsies. Gastric biopsies revealed H. pylori-associated chronic active gastritis, initially treated with Pylera and PPI without eradication. She subsequently received rifabutin 300 mg daily, amoxicillin 750 mg TID, and 2 weeks of PPI. No follow-up breath test has been performed. Small bowel biopsies showed normal villi with a slightly patchy increase in intraepithelial lymphocytes. A gastric emptying scan confirmed gastroparesis, which she describes as ?pretty bad.? She was evaluated by Dr. Corey, who recommended dietary changes and considered autoimmune gastrointestinal dysmotility, but antibody workup was normal. She was referred to a female shake out worker and was recommended IBSRELA, which she did not start due to insurance issues. Capsule endoscopy was also recommended but not completed due to cost. Laparoscopy by her clarifier operator ruled out endometriosis. 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 FibroScan in April showed minimal scarring and S2 steatotic changes. She reports social alcohol use on weekends or every other weekend. She has been biking 16 miles a day, but continues to gain weight. She is enrolled in the [employer] program through her employer, which provides a meal plan and daily monitoring of glucose, weight, and blood pressure. Past Clinical Workup: Last OV - Iliana Mercado PA-C Gastroenterology Assessment IMPRESSION Ms. 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 Plan for colonoscopy to evaluate further for BRBPR. She will also have chronic liver disease work up completed and repeat fibroscan ordered. PLAN -Chronic liver disease work up -Colonoscopy -Fibroscan Iliana Mercado PA-C Recent Procedures: Colon - The examined [...] corresponds to 91% chance of stage 0-2 (more content not included)...[facility]10-23-2025 Telephone encounter Note* Telephone Encounter - Ivelisse Ferguson - 02/13/2025 9:51 AM EDT Called pt to reschedule appointment, pt states she is having a really hard time with her foot drop.Pt is wanting to know if there is anything she can do to help with this. [facility] CareCqcevzqzbm98-26-5578 Miscellaneous Notes* Telephone Encounter - Ivelisse Ferguson - 02/13/2025 9:51 AM EDT Called pt to reschedule appointment, pt states she is having a really hard time with her foot drop.Pt is wanting to know if there is anything she can do to help with this. documented in this encounterUniversity of [place] Health CareEvqmzzhauo49-07-3597 History of Present illness Narrative* Milton Fraire DPM FACFAS - 02/12/2025 4:40 PM EDT Images from the original note [...] to no avail. Patient states that she twisted her right ankle once again she has been trying to be more exercise and bike riding recently. Patient was also complaining of the left drop foot Allergies: Allergies Allergen Reactions Cat Dander Anaphylaxis [...] Acute biliary pancreatitis without infection or necrosis ([facility]) 03/21/2023 Calculus of gallbladder without cholecystitis [...] Morbid (severe) obesity due to excess calories ([facility]) 12/16/2024 Impaired fasting glucose 12/16/2024 Obesity, class 2 12/16/2024 Atypical migraine 12/29/2024 Chest pain 01/06/2025 Type 2 diabetes mellitus without complication, without long-term current use of insulin ([facility]) 01/06/2025 Resolved Ambulatory Problems Diagnosis Date [...] toenail 2015 Left ovarian cyst 03/01/2019 Pancreatitis ([facility]) Pap smear for cervical cancer screening 04/20/2022 Post depression Seizures ([facility]) 2002 Medications: Current Outpatient Medications: albuterol [...] mouth at bedtime, Disp: 60 capsule, Rfl: 5 escitalopram (Lexapro) 20 MG tablet, Take 20 mg by mouth Daily, Disp: , Rfl: Gjixwtveace-Gsevaneoe-Yzchkd (Trelegy Ellipta) 100-62.5-25 MCG/ACT aerosol powder , [...] < 3 seconds Digits 1-5 bilateral NEURO: Cocoa Cullen 5.07 monofilament was intact B/L. Vibratory sensation was intact B/L Musculoskeletal: Muscle strength was +5 over 5 all intrinsic and extrinsic muscles tested. There isno pain with direct palpation of the sinus [...] ankle or subtalar joint. Patient has a left drop foot she was working with a neurologist for this issue. Patient has a mild gastrocnemius-soleus equinus with mild tenderness noted at the level of the Achilles tendon. No palpable deficits noted within the Achilles tendon. No pain with range of motion of the ankle or subtalar joint. ASSESSMENT 1. Other synovitis and tenosynovitis, right ankle and foot 2. Sprain of anterior talofibular ligament of right ankle, subsequent encounter 3. Other enthesopathy of right foot and ankle 4. Foot drop, left PLAN I Recommended a cortisone injection into the subtalar joint right capsule The patient was injected with 1 cc of 2% lidocaine plain and 1 cc of Kenalog 10 the ultrasonic guidance. A 12 megahertz linear probe was used for the injection in order to ensure exact placement and to avoid injection into underlying subcutaneous tissue. I recommended a Kit brace for her left drop foot JASON Conti documented in this encounterUniversity of Missouri Health CareLeprrzjwlj25-86-1461 Telephone encounter Note* Telephone Encounter - VINH Roque - 01/22/2025 9:39 AM EDT OARRS reviewed, Rx sent into patient's pharmacy. [facility] CareCmrfnmuadi69-17-3196 Miscellaneous Notes* Telephone Encounter - VINH Roque - 01/22/2025 9:39 AM EDT OARRS reviewed, Rx sent into patient's pharmacy. documented in this encounterUniversity of Missouri Health CareVfozanrhyg83-00-3942 Telephone encounter Note* Telephone Encounter - VINH Roque - 01/20/2025 8:34 AM EDT Doxepin sent. [facility] CareQkmcsrmely51-28-8485 Miscellaneous Notes* Telephone Encounter - VINH Roque - 01/20/2025 8:34 AM EDT Doxepin sent. 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 Major depressive disorder, recurrent, moderate ([facility]) 08/20/2024 Alcohol use, unspecified with alcohol-induced psychotic disorder, unspecified ([facility]) 09/02/2024 Alcohol withdrawal delirium ([facility]) 09/02/2024 Hypertension 09/02/2024 Sinus tachycardia 09/02/2024 Fall at home 09/10/2024 Extruding suture 09/25/2024 Lumbar radiculopathy 12/09/2024 Generalized anxiety disorder 12/12/2024 Obsessive-compulsive disorder 12/12/2024 Pelvic floor dysfunction 10/11/2024 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 Right ovarian cyst 12/12/2024 Morbid (severe) obesity due to excess calories ([facility]) 12/16/2024 Impaired fasting glucose 12/16/2024 Obesity, class 2 12/16/2024 Atypical migraine 12/29/2024 Chest pain 01/06/2025 Type 2 diabetes mellitus without complication, without long-term current use of insulin ([facility]) 01/06/2025 Resolved Ambulatory Problems Diagnosis Date [...] gastric emptying 09/12/2022 Gall stones Gestational hypertension ([facility]) H/O CT scan of chest 07/30/2018 Headache, tension-type 2024 HELLP syndrome ([facility]) History of being hospitalized History of colonoscopy 05/28/2019 History of diagnostic ultrasound 03/23/2018 History of diagnostic ultrasound 12/10/2021 History of esophagogastroduodenoscopy 06/30/2022 History of esophagogastroduodenoscopy 08/31/2022 History of HIDA scan 08/28/2021 History of medical problems 03/18/2020 History of medical problems 08/16/2021 History of medical problems 06/10/2022 Influenza A 05/07/2017 Ingrown toenail 2015 Left ovarian cyst 03/01/2019 Pancreatitis ([facility]) Pap smear for cervical cancer screening 04/20/2022 Post depression Seizures ([facility]) 2002 Medications: Current Outpatient Medications: albuterol [...] mg by mouth Daily, Disp: , Rfl: Sklgawogzdz-Vasncyvii-Ucgmvq (Trelegy Ellipta) 100-62.5-25 MCG/ACT aerosol powder , [...] < 3 seconds Digits 1-5 bilateral NEURO: Cocoa Cullen 5.07 monofilament was intact B/L. Vibratory sensation was intact B/L Musculoskeletal: Muscle strength was +5 over 5 all intrinsic and extrinsic muscles tested. There isno pain with direct palpation of the sinus [...] with the orthotic devices follow up with vt p.r.n. JASON Conti documented in this encounterUniversity of Missouri Health CareRddymiwasr66-24-3525 Telephone encounter Note* Telephone Encounter - BALDO STRONG - 01/13/2025 4:02 PM EDT She would like the steroid sent in. She did use both her inhaler and the nebulizer and still wasn'tfeeling the best. [facility] Egfrmapsex76-61-4618 Miscellaneous Notes* Telephone Encounter - BALDO STRONG - 01/13/2025 4:02 PM EDT She would like the steroid sent in. She did use both her inhaler and the nebulizer and still wasn'tfeeling the best. documented in this [place] [facility] [facility]09-15-2025 History of Present illness Narrative* Giovani Hagen MD - 01/06/2025 11:42 AM EDTAssociated Problem(s): Type 2 diabetes mellitus without complication, without long-term current useof insulin (HCC) Last A1c was 8.5 * Giovani Hagen MD - 01/06/2025 11:35 AM EDTAssociated Problem(s): Chest pain [facility] * Giovani Hagen MD - 01/06/2025 11:34 AM EDTAssociated Problem(s): Well adult health check [place] Alcohol consumption No Tobacco Seat Belt use Exercise Regularly No Text Drive Social Accountability * Giovani Hagen MD - 01/06/2025 10:30 AM EDT Subjective Patient ID: Orion Harper is a 34 y.o. female who presents for a wellness. Orion presents today for a yearly wellness. Patient was seen in the [place] ER this morning for having chest pain, [...] tablet Take 20 mg by mouth Daily Wgslupntnla-Ihwkbkevi-Ndmyoz (Trelegy Ellipta) 100-62.5-25 MCG/ACT aerosol powder INHALE [...] cyst 03/01/2019 simple cyst 1.2 cm Pancreatitis ([facility]) Pap smear for cervical cancer screening 04/20/2022 neg Post depression Seizures ([facility]) 2002 Sprain of anterior talofibular ligament of [...] No follow-ups on file. documented in this encounterUniversity of Missouri Health [id number] NotePatient Education Urology Kidney Stones Kidney stones are solid, rock-like deposits that form inside of the kidneys. The kidneys are a pairof organs that make urine. A kidney stone [...] you have severe pain or have stones thatblock your urinary tract. Follow these instructions at home: Medicines ??? Take azfx-whm-lhdjeax and prescription medicines only as told by your health care provider. ??? Ask your health care provider if the medicine prescribed to you requires you to avoid driving or using heavy machinery. Eating and drinking ??? Drink enough fluid to keep your urine pale yellow. You may be instructed to drink at least 8?10glasses of water each day. This will help [...] urine pale yellow. Thi (more content not included)...[facility]09-08-2025 History of Present illness Narrative* Milton Fraire DPM FACFAS - 12/30/2024 1:20 PM EDT Images from the original note were not included. Patient: Orion Harper : 1990 PCP: Goivani Hagen MD SUBJECTIVE This is a 34 [...] Patient states that she was surfing in [place] when she injured her right ankle and [...] Acute biliary pancreatitis without infection or necrosis ([facility]) 03/21/2023 Calculus of gallbladder without cholecystitis [...] Morbid (severe) obesity due to excess calories ([facility]) 12/16/2024 Impaired fasting glucose 12/16/2024 Obesity, class [...] mg by mouth Daily, Disp: , Rfl: Wepfeyvxdtl-Wzpewgbwe-Gnfzpx (Trelegy Ellipta) 100-62.5-25 MCG/ACT aerosol powder , [...] < 3 seconds Digits 1-5 bilateral NEURO: Cocoa Cullen 5.07 monofilament was intact B/L. Vibratory [...] 2 weeks JASON Conti documented in this encounterUniversity of Missouri Health [id number] Instructions* Patient Instructions* Emma Romero APRN.OXIDATION ENGINEER - 12/30/2024 9:42 AM EDT Images from [...] to your home. I recommend Camilla in [place], as she is approximately 30 minutes from [...] for a physical therapist. documented in this encounterUniversity Hospitals Portage Medical Center09-08-2025 History of Present illness Narrative* Emma Romero APRN.CNP - 12/30/2024 9:00 AM EDT Images from the original note were not included. [facility] SECTION FOR CHRONIC PELVIC PAIN OUTPATIENT VISIT DATE 12/30/2024 OUTPATIENT VISIT TYPE CONSULT REFERRING PROVIDER: Javy Boudreaux MD PRIMARY CARE PROVIDER: Giovani Hagen MD, MD PRIMARY TRAIN BRAKER: Consultation requested by referring provider above for an opinion regarding Orion Mcclellan Meredith, and my final recommendations will be communicated back to the requesting physician by way of shared medical record or letter via US mail. Recording using [employer] software for draft documentation of the visit was discussed with the patient/authorized it sales representative; all questions welcomed and answered. Patient/authorized it sales representative agreed to proceed CHIEF COMPLAINT/REASON [...] is not in contact with those individuals. Contract Lead Hx: (page 3) Menarche: 9 Currently experiences: Not menstruating Duration of dysmenorrhea symptoms: n/a Currently missing school/work: N/A Prior dysmenorrhea treatment: Other, Hysterectomy Current control: Nothing History of STD: Negative history MA intake LMP: Patient's last menstrual period was 05/25/2015. Cycles: Hysterectomy, Flow: n/a Intermenstrual spotting between periods: N/A Last pap: Pap Results: WNL 03/20/2024, HPV: History of abnormal pap: Yes [place]: (MA intake) Dyspareunia: both insertional and deep [...] Pain characteristics: (page 5) Pain started (month/year): 1227-6763 Inciting event: No obvious cause/do not know Onset: Gradual Duration of pain: 2-5 years Character of pain: Sharp, stabbing Wakes from sleep: No Radiation of pain: No Aggravating factors: [place]/Sexual contact Alleviating factors: Nothing makes it better Bowel habits: (page 12-13) Nausea/vomiting: endorses Diarrhea: denies Abdominal pain: denies Bloating: denies Constipation: denies Increased pain with bowel movements: denies Blood in stool: endorses Pain with change in frequency of stool: denies Pain with change in appearance of stool: denies Pain changes with bowel movements: denies. 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 The sensitive examination was discussed with the Patient or Patient's Authorized Ship Fitter. Asapplicable, any other physician, advance practice provider, medical student, or other health professional student that will be observing or involved in the sensitive examination for educational or training purposes was discussed with the Patient or Authorized Ship Fitter. The Patient or Authorized Ship Fitter has agreed to proceed with the sensitive [...] By: Sayra Kate RDMS Read By: Lulú Jo M.D. ASSESSMENT (R10.2, G89.29) Chronic pelvic pain [...] instructions to locate a closer provider via pelvicrehab.[employer]. - Educated on pelvic floor anatomy, the [...] with more than 50% of the total pkoz-fr-jzft time of the visit in counseling / coordination of care. I personally interviewed, confirmed and edited the above information if obtained by others. Emma Romero APRN.CNP This note was written with the [...] socially Drug use: Never documented in this encounterUniversity Hospitals Portage Medical Center09-08-2025 NoteHNO ID: [id number] Author: EMMA ROMERO APRN.CNP Service: ? Author Type: Nurse Practitioner Type: Progress Notes Filed: 12/30/2024 10:35 Note Text: [facility] SECTION FOR CHRONIC PELVIC PAIN OUTPATIENT VISIT DATE 12/30/2024 OUTPATIENT VISIT TYPE CONSULT REFERRING PROVIDER: Javy Boudreaux MD PRIMARY CARE PROVIDER: Giovani Hagen MD, MD PRIMARY TRAIN BRAKER: Consultation requested by referring provider above for an opinion regarding Orion Harper, and my final recommendations will be communicated back to the requesting physician by way of shared medical record or letter via US mail. Recording using B[employer] software for draft documentation of the visit was discussed with the patient/authorized it sales representative; all questions welcomed and answered. Patient/authorized it sales representative agreed to proceed CHIEF COMPLAINT/REASON [...] is not in contact with those individuals. Contract Lead Hx: (page 3) Menarche: 9 Currently experiences: Not menstruating Duration of dysmenorrhea symptoms: n/a Currently missing school/work: N/A Prior dysmenorrhea treatment: Other, Hysterectomy Current control: Nothing History of STD: Negative history MA intake LMP: Patient's last menstrual period was 05/25/2015. Cycles: Hysterectomy, Flow: n/a Intermenstrual spotting between periods: N/A Last pap: Pap Results: WNL 03/20/2024, HPV: History of abnormal pap: Yes [place]: (MA intake) Dyspareunia: both insertional and deep [...] Pain characteristics: (page 5) Pain started (month/year): 0605-4289 Inciting event: No obvious cause/do not know Onset: Gradual Duration of pain: 2-5 years Character of pain: Sharp, stabbing Wakes from sleep: No Radiation of pain: No Aggravating factors: [place]/Sexual contact Alleviating factors: Nothing makes it better Bowel habits: (page 12-13) Nausea/vomiting: endorses Diarrhea: denies Abdominal pain: denies Bloating: denies Constipation: denies Increased pain with bowel movements: denies Blood in stool: endorses Pain with change in frequency of stool: (more content not included)...[facility]09-04-2025 History of Present illness Narrative* Jatin Parisi MD - 12/26/2024 1:20 PM EDT Images [...] chipping her ankle again while surfing in [place]. Despite receiving foursteroid injections, she continues to experience soreness. She also fractured her tibial plateau in 06/2024. She continues to experience migraines once or twice a week, often accompanied by nausea. MEDICATIONS CURRENT MEDS: Trileptal 300 mg Oral Twice daily PREVIOUS MEDS: Prednisone Oral Reason for Discontinuation: Did not help with inflammation Adrianaa Review of Systems Const: Denies appetite change, [...] refill for Trileptal will be sent to [facility] in [place]. 2. Ankle pain. The patient reports persistent [...] BID. This clinical note was created utilizing [employer] documentation system. All information has beenthoroughly reviewed, corrected as necessary, and authenticated by the provider to ensure accuracy and completeness. On occasion, [employer] documentation system erroneously drops words or replaces aspoken word with a similar sounding word. Please notify with any questions or concerns regarding this clinical note. documented in this encounterUniversity of Missouri Health [id number] Telephone encounter Note* Telephone Encounter - Audrey Perez LPN - 12/16/2024 1:22 PM EDT Pt called re: doxepin dosage, when she was discharged from the rehab in [place] they had her taking Doxepin 100mg- take 2 at bedtime--pt is requesting dose be updated and resend rx [facility] [id number] Miscellaneous Notes* Telephone Encounter - Audrey Perez LPN - 12/16/2024 1:22 PM EDT Pt called re: doxepin dosage, when she was discharged from the rehab in [place] they had her taking Doxepin 100mg- take 2 at bedtime--pt is requesting dose be updated and resend rx to [facility] documented in this encounterUniversity of Missouri Health CareLbjwhpikkt90-08-9157 History of Present illness Narrative* Giovani Hagen MD - 12/16/2024 10:12 AM EDTAssociated Problem(s): PTSD (post-traumatic stress disorder) S/p rehab * Giovani Hagen MD - 12/16/2024 10:12 AM EDTAssociated Problem(s): Body mass index (BMI) 36.0-36.9, adult Can't exercise due to chip * Giovani Hagen MD - 12/16/2024 10:11 AM EDTAssociated Problem(s): Morbid (severe) obesity due to excess calories ([facility]) Weight loss * Giovani Hagen MD - 12/16/2024 10:11 AM EDTAssociated Problem(s): Obesity, class 2 Probably related to Diabetes * Giovani Hagen MD - 12/16/2024 10:09 AM EDTAssociated Problem(s): Nonalcoholic steatohepatitis (ENGLISH) F/Up with GI Numbers are improved since stopping alcohol * Giovani Hagen MD - 12/16/2024 10:03 AM EDTAssociated Problem(s): Weight gain Has seen Computer Discovery Teacher in the past. * Giovani Hagen MD - 12/16/2024 10:02 AM EDTAssociated Problem(s): Lumbar radiculopathy Has had shots Encouraged weight lost EMG shows Left L4 moderate radiculopathy * Giovani Hagen MD - 12/16/2024 9:45 AM EDT Images from the original note [...] tablet Take 20 mg by mouth Daily Vaycxzuxczq-Uumxogdro-Lvwjaw (Trelegy Ellipta) 100-62.5-25 MCG/ACT aerosol powder INHALE [...] screening 04/20/2022 neg Post depression Seizures (HCC) 2003 Sprain of anterior talofibular ligament of right [...] 2 MG capsule Weight gain Has seen Computer Discovery Teacher in the past. Relevant Medications dapagliflozin (Farxiga) [...] No follow-ups on file. documented in this [facility]08-25-2025 Telephone encounter Note* Telephone Encounter - VINH Roque - 12/16/2024 8:40 AM EDT Adderall Sent. Mixaloo Message. [facility] [id number] Miscellaneous Notes* Telephone Encounter - VINH Roque - 12/16/2024 8:40 AM EDT Adderall Sent. Mixaloo Message. documented in this [facility]08-22-2025 History of Present illness Narrative* Milton Fraire DPM FACFAS - 12/13/2024 9:40 AM EDT Images from the original note [...] numerous conservative therapies including shoe gear modifications anti- inflammatory medications rest ice and elevation to no avail. Patient states that she was surfing in [place] when she injured her right ankle and [...] mg by mouth Daily, Disp: , Rfl: Vqwicfpvuku-Extqkwgqw-Khmiow (Trelegy Ellipta) 100-62.5-25 MCG/ACT aerosol powder , [...] < 3 seconds Digits 1-5 bilateral NEURO: Cocoa Cullen 5.07 monofilament was intact B/L. Vibratory sensation was intact B/L Musculoskeletal: Muscle strength was +5 over 5 all intrinsic and extrinsic muscles tested. There issignificant pain with direct palpation of the sinus tarsi pain with range of motion of the subtalarjoint and ankle joint. Mild swelling noted over [...] AP/MORT/LAT Ankle: No fractures or dislocations seen mildswelling circumferentially around the ankle. Small leanne fracture noted of the medial aspect of themedial malleolus. Diagnostic ultrasound: Diagnostic ultrasound 12 megahertz [...] every day. JASON Conti documented in this encounterUniversity of Missouri Health [id number] History of Present illness Narrative* VINH Roque - 12/12/2024 10:30 AM EDT Images from the original note were not included. HPI Med Refill Additional comments: Doxepin, Ativan, Adderall both 10 and 30 mg Last edited by Marie Keller LPN on 12/12/2024 10:38 AM. Subjective Patient ID: Orion Harper is a 34 y.o. female who presents for [facility] ER follow up. Flowsheet Row Patient Outreach from 12/10/2024 in [facility] with Gifty Mireles LPN Hospital Information ED, Hospital or Chcf Facility Discharge? ED Patient has been contacted within 2 days of being seen in the ED Yes Diagnosis Gastritis Discharge Date 12/09/24 Discharged To: Home Setting Discharge Hospital [facility] Engagement Call Start Time 1444 Admission Date 12/09/24 Medications Discharge medications reviewed and reconciled from hospital? No [pt did not reconcile with telegraphic typewriter installer. Was sent home with no new medications] [...] 1348 States was in Mental Rehab in [place] recently. Saw Psychiatry on Monday, Dr. Maria Esther Amos, [facility]. Seeing Dr. Jatin Parisi for her back, next appointment is in December. Has to reschedule that appointment she thinks due to having to be in [place] that day. Has tried Flexeril, prescription strength [...] tablet Take 20 mg by mouth Daily Glaylcbsjie-Wandrgrfp-Cpdecw (Trelegy Ellipta) 100-62.5-25 MCG/ACT aerosol powder INHALE [...] recent imaging. Pt can follow up with ADJUNCT INSTRUCTOR IN [employer] as needed. Hypokalemia - Comprehensive metabolic panel [...] Hagen prior to restarting the Adderall for her.Her [...] for Appointment As Scheduled. documented in this [facility]07-09-2025 Telephone encounter Note* Telephone Encounter - VINH Roque - 10/30/2024 3:35 PM EDT Refill declined. [facility] [id number] Miscellaneous Notes* Telephone Encounter - VINH Roque - 10/30/2024 3:35 PM EDT Refill declined. * Telephone Encounter - BALDO STRONG - 10/30/2024 1:16 PM EDT OV 10/08/24 Looks to be discontinued on 06/19/24 documented in this [facility]07-09-2025 Telephone encounter Note* Telephone Encounter - BALDO STRONG - 10/30/2024 1:16 PM EDT OV 10/08/24 Looks to be discontinued on 06/19/24 [facility] [id number] History of Present illness Narrative* Annita Moses, RT(R) - 10/23/2024 1:00 PM EDT Radiology Service Progress Note PATIENT [...] PATIENT PRESENTS WITH AN IMPLANTABLE OR ATTACHED PHOTOGRAPHIC LABORATORY SUPERVISOR: No RADIOLOGY DEPARTMENT: General X-ray: Exam(s) Completed: Abdomen X-Ray: Abdomen PERIPHERAL IV DATA: Not applicable SIGNED BY: RT Xavier(Aroldo) October 23, 2024 2:10 PM documented in this encounterUniversity Hospitals Portage Medical Center07-02-2025 NoteHNO ID: [id number] Author: ANNITA MOSES RT(R) Service: ? Author Type: Technologist Type: [...] PATIENT PRESENTS WITH AN IMPLANTABLE OR ATTACHED PHOTOGRAPHIC LABORATORY SUPERVISOR: No RADIOLOGY DEPARTMENT: General X-ray: Exam(s) Completed: Abdomen X-Ray: Abdomen PERIPHERAL IV DATA: Not applicable SIGNED BY: RT Xavier(Aroldo) October 23, 2024 2:10 [facility]06-24-2025 NoteHNO ID: [id number] Author: MARIO HARPER APRN.OXIDATION ENGINEER Service: ? Author Type: Nurse Practitioner Type: Progress Notes Filed: 10/15/2024 11:06 Note Text: SENSITIVE EXAMINATION CONSENT: The sensitive examination was discussed with the Patient or Patient's Authorized Ship Fitter. As applicable, any other physician, advance practice provider, medical student, or other health professional student that will be observing or involved in the sensitive examination for educational or training purposes was discussed with the Patient or Authorized Ship Fitter. The Patient or Authorized Ship Fitter has agreed to proceed with the sensitive examination. [facility]06-24-2025 History of Present illness Narrative* Mario Harper APRN.CNP - 10/15/2024 11:04 AM EDT SENSITIVE EXAMINATION CONSENT: The sensitive examination was discussed with the Patient or Patient's Authorized Ship Fitter. Asapplicable, any other physician, advance practice provider, medical student, or other health professional student that will be observing or involved in the sensitive examination for educational or training purposes was discussed with the Patient or Authorized Ship Fitter. The Patient or Authorized Ship Fitter has agreed to proceed with the sensitive examination. documented in this encounterUniversity Hospitals Portage Medical Center06-20-2025 NoteHNO ID: [id number] Author: LYDIA ROCK PT, DPT Service: ? Author Type: Physical Therapist Type: Progress Notes Filed: 01/14/2025 16:09 Note Text: 01/14/2025 [facility] PHYSICAL THERAPY DISCONTINUANCE [...] Planned: 4 Planned Treatment Interventions: Therapeutic exercise (83310), Neuromuscular re-education (30488), Manual therapy (91177), Therapeutic activities (72655), Self-[place] health care facility management (82958), Patient/Family/Caregiver Education, Body Mechanics Training PLAN FOR [...] Comments Relevant Medical Condition (more content not included)...[facility]06-20-2025 History of Present illness Narrative* Lydia Rock PT, DPT - 10/11/2024 2:44 PM EDT Images from the original note [...] as a rehabilitation concern. Prognosis for therapy isFair due to: clinical presentation, chronic nature of [...] Planned: 4 Planned Treatment Interventions: Therapeutic exercise (19819), Neuromuscular re- education (32801), Manual therapy (85934), Therapeutic activities (28801), Self- [place] health care facility management (74615), Patient/Family/Caregiver Education, Body Mechanics Training PLAN FOR [...] insertion. No deep pain with thrusting. Pain withorgasm. Patient reports frequent UTIs and takes antibiotics [...] hysterectomy Employment: Unemployed Recreation / Current Exercise: [employer] Home Environment Patient Lives With: Family Intake [...] 3 : 3 (all emergency) Aggravates Pain: [place], Orgasm, Urination Pain with penetration: Pain with [...] multiple times a day Bowel Movement Consistency ([place]) : 1: Seperate hard lumps, like nuts, [...] Lydia Rock PT, DPT documented in this encounterUniversity Hospitals Portage Medical Center06-19-2025 History of Present illness Narrative* Shannon Ochoa, STONEMASON SUPERVISOR - 10/10/2024 1:00 PM EDT Images from the original note [...] by a sensation of pressure and a noxj-gks-czgooor feeling against her eardrum. She reports a lack of sensation upon touch, but an awareness of pressure. The numbness is not constant but appears to be progressively worsening. She does not experience any similar symptoms in her leg or right arm. Previous treatments including steroid injections and dry needling have been ineffective. An MRI of her back was c onducted, but she has not undergone a nerve [...] or peripheral nerve involvement in the arm. Thepresence of facial involvement necessitates further investigation to rule out any brain-related issues. The possibility of facial involvement due to migraines was also discussed. A brain MRI will be ordered to ensure there are no significant underlying conditions. A nerve conduction test will be conducted on the left arm by Dr. Jatin Parisi in [place]. A prescription for oxcarbazepine (Trileptal) will [...] care. This clinical note was created utilizing [employer] documentation system. All information has beenthoroughly reviewed, corrected as necessary, and authenticated by the provider to ensure accuracy and completeness. On occasion, [employer] documentation system erroneously drops words or replaces aspoken word with a similar sounding word. Please notify with any questions or concerns regarding this clinical note. documented in this encounterUniversity of Missouri Health CareSeiwlqvhfe85-88-1785 Instructions* Patient Instructions* Mario Harper APRN.[facility] - 10/09/2024 1:35 PM EDT We discussed your concerns about hemorrhoids, constipation, and pelvic pain: - You have internal hemorrhoids that are mildly to moderately enlarged, but no external hemorrhoidsor anal fissures were found during today s [...] tests to better understand your condition: - Zurdoer Study: This test will evaluate how well [...] You may complete this test at the [facility] location or another convenient location. - [...] movements and reduce pain. - Your closest [facility] location for pelvic floor physical therapy is in [place]. If you find a local pelvic floor steward/stewardess outside of the [facility] system, let me know, and [...] please contact our office. documented in this encounterUniversity Hospitals Portage Medical Center06-18-2025 NoteHNO ID: [id number] Author: MARIO HARPER APRN.ISABEL Service: ? Author Type: Nurse Practitioner Type: Progress Notes Filed: 10/09/2024 14:03 Note Text: COLORECTAL SURGERY October 09, 2024 Orion Harper 34 year old This consult was requested by Dr. Winn and my final recommendations will be communicated to the requesting health care provider by way of the shared medical record for internal providers or letter via the [employer] for external providers. Recording using [employer] software for draft documentation of the visit was discussed with the patient/authorized it sales representative; all questions welcomed and answered. Patient/authorized it sales representative agreed to proceed Chief Complaint: [...] Onset other (heart murmur) (more content not included)...[facility] 10-09-2024 History of Present illness Narrative* Mario Harper, BASSAM.[facility] - 10/09/2024 1:09 PM EDT COLORECTAL SURGERY October 09, 2024 Orionbianca Harper 34 year old This consult was requested by Dr. Winn and my final recommendations will be communicated to the requesting health care provider by way of the shared medical record for internal providers or letter via the [employer] for external providers. Recording using ambient ChatterPlug software for draft documentation of the visit was discussed with the patient/authorized it sales representative; all questions welcomed and answered. Patient/authorized it sales representative agreed to proceed Chief Complaint: hemorrhoids, rectal pain History of Present Illness: HPI: The patient is a 34-year-old female with constipation-predominant irritable bowel syndrome (IBS-C),diverticulitis, and liver problems, presenting for evaluation of chronic hemorrhoidal symptoms, including pain and rectal bleeding. She reports that her hemorrhoidal symptoms began during her first approximately 12 years ago and have progressively worsened with each of her three pregnancies, all delivered via .She describes ongoing anal pain and daily rectal bleeding, which have recently intensified to the point that she cannot sit comfortably without shifting her weight to one side. She also experiences asensation of something protruding externally during bowel movements, [...] manages recurrences with antibiotics prescribed over the phone.She has undergone several colonoscopies, including one in [...] 1 tablet by mouth once daily. 30 tablet2 montelukast (SINGULAIR) 10 mg tablet Take 10 [...] no acute distress, well-hydrated, well nourished. andOverweight Abdomen: deferred Anorectal: External exam reveals slightly enlarged external hemorrhoids in RA and RP positions. No anal fissure or concern for perianal abscess/fistula. Digital rectal exam reveals no gross blood or palpable lesions. Pain on [place] to levator ani bilaterally Auto Body Mechanic Apprentice present: Yes Anoscopy: The patient was placed in chest-knee position. After digital exam with a lubricated finger, the scope was easily inserted. Mildly enlarged right posterior and right anterior internal hemorrhoids were noted. Otherwise normal mucosa was noted. Anoscopy completed. The sensitive examination was discussed with the Patient or Patient's Authorized Ship Fitter. Asapplicable, any other physician, advance practice provider, medical student, or other health professional student that will be observing or involved in the sensitive examination for educational or training purposes was discussed with the Patient or Authorized Ship Fitter. The Patient or Authorized Ship Fitter has agreed to proceed with the sensitive examination. (Sensitive examination includes inspection and/or palpation of the breasts, pelvis, prostate and anorectal regions) Assessment Assessment and Plan: 1. Pelvic floor dysfunction (M62.89) Examination reveals tension and tightness in the levator muscles and pelvic floor, with pain elicited during palpation. No external hemorrhoids or anal fissures observed, but internal hemorrhoids aremoderately to mildly enlarged. Patient reports dyspareunia and has a scheduled appointment with a pelvic pain specialist next month. - Scheduled anorectal manometry test for next Monday at 10:30 to assess pelvic floor muscle function. - Ordered Sitzmarker study to evaluate colonic motility; patient instructed to take capsules on a Monday and undergo x-rays on the following Monday, Monday, and Monday at the [facility] location. - Initiated referral for pelvic floor physical therapy; recommended [facility] or local pelvic floor specialists. - Advised application of Desitin or zinc oxide to irritated perineal skin. 2. Chronic constipation (K59.09) Patient reports bowel movements approximately once a week, with associated bloating and discomfort.Previous use of Linzess was discontinued due to [...] Harper APRN.CNP Colorectal Surgery documented in this encounterUniversity Hospitals [facility]06-17-2025 Telephone encounter Note * Telephone Encounter - Deena Lyn NP - 10/08/2024 12:56 PM EDT Pt needs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 12/12/2022 Vitamin D deficiency 05/16/2019 Dizziness 12/13/2022 Acute nonintractable headache 12/13/2022 History of COVID-19 02/06/2023 Overweight 02/06/2023 Acute biliary pancreatitis without infection or necrosis 03/21/2023 Calculus of gallbladder without cholecystitis without obstruction 03/23/2023 Cholecystitis 04/18/2023 Encounter for postoperative care 04/18/2023 History of acute pancreatitis 04/18/2023 History of cholecystectomy 04/18/2023 Cough 04/18/2023 Anaphylactic syndrome 04/18/2023 PTSD (post-traumatic stress disorder) ([facility]) 02/24/2015 Tinea 10/03/2023 Weight gain 10/03/2023 Glucose intolerance 10/03/2023 Dyshidrosis 10/03/2023 Encounter for well adult exam without abnormal findings 12/04/2023 Cervical radiculopathy 12/26/2023 Obesity (BMI 35.0-39.9 without comorbidity) 02/06/2024 Localized edema 02/06/2024 Injury of right ankle 02/06/2024 Sprain of anterior talofibular ligament of right ankle 04/01/2024 Pain and swelling of left shoulder 04/03/2024 Asthmatic bronchitis with acute exacerbation ([facility]) 04/16/2024 Snoring 04/16/2024 Resolved Ambulatory Problems [...] having a diagnostic laparoscopy performed at [facility] with Dr. Starr.results was reviewed with the patient and all restrictions have been lifted. Follow Up: Patient is to return to the office for annual exam unless needed otherwise. Documented by VINH Sibley on behalf of: VINH Sibley documented in this encounterUniversity of Missouri Health [id number] Telephone encounter Note* Telephone Encounter - Benito Prince RN - 05/23/2024 3:25 PM EST ----- [...] and precautions to follow Carol Winn MD [facility]01-30-2025 Miscellaneous Notes* Telephone Encounter - Benito Prince RN - 05/23/2024 3:25 PM EST ----- [...] follow Carol Winn MD documented in this encounterUniversity Hospitals Portage [facility] Center01-29-2025 History and physical note * [...] DATE: May 22, 2024 TIME: 1:39 PM [facility] Work Phone: [phone] History and physical note* Carol Winn MD [...] 2024 TIME: 1:39 PM documented in this encounterUniversity Hospitals Port[facility] Center01-29-2025 Nurse Note* Lindsey Buckley RN [...] Lindsey Buckley RN In Department: AMBULATORY SURGERY [facility]01-29-2025 Nurse Note* Lindsey Buckley RN [...] In Department: AMBULATORY SURGERY documented in this encounterUniversity Hospitals Portage [facility] Center01-22-2025 Telephone encounter Note * Telephone Encounter - Rose Jarvis - 05/15/2024 3:56 PM EST Appts cxl, surgery notified to cxl. [facility]01-22-2025 Miscellaneous Notes* Telephone Encounter - [...] time. Lydia Kelley DO documented in this encounterUniversity Hospitals Portage Medical Center01-22-2025 History of Present illness Narrative* [...] consultation for surgical intervention by Dr. Prateek pitts. She relates to me that her ankle hurts when she walks and a does feelunstable when walking as well. She has difficulty walking on uneven terrain. 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 [address] Magnetic Resonance Report Signed Patient: ORION HARPER MR#: [id number] : 1990 Acct:[id number] Age/Sex: 33 / F ADM Date: 03/14/24 Loc: MRI Attending Dr: Laurie Navas M.D. Ordering Physician: Laurie Navas M.D. Date of Service: 03/14/24 Procedure(s): MR ankle RT wo con Accession Number(s): [id number] cc: GIOVANI HAGEN ; Laurie Navas M.D. [facility] [place] [id number] Patient Name: ORION HARPER MRN: [id number] date: 1990 Sex: F Assigned Patient Location: MRI Current Patient Location: Accession/Order Number: [id number] Exam Date: 03/14/2024 15:04 Report Date: 03/17/2024 [...] THE MORNING, Disp: 30 tablet, Rfl: 2 Ydrbnhfpqtw-Bjjwubgzc-Asmcrc 100-62.5-25 MCG/ACT aerosol powder , Inhale 1 [...] are palpable bilateral, no edema noted Neuro: [place]-Cullen 5.07 monofilament intact, vibratory sensation intact Derm: [...] above-stated procedure. JASON Conti documented in this encounterUniversity of Missouri Health CarePzbqmnqjni22-93-8688 Telephone encounter Note* Telephone Encounter - VINH Roque - 05/10/2024 12:10 PM EST Pt was seen. OARRS reviewed, Rx sent into patient's pharmacy. [facility] CareKjycuwnote82-54-9104 Miscellaneous Notes* Telephone Encounter - VINH Roque - 05/10/2024 12:10 PM EST Pt was seen. OARRS reviewed, Rx sent into patient's pharmacy. * Telephone Encounter - VINH Roque - 05/09/2024 1:07 PM EST Patient has appointment today. documented in this encounterUniversity of Missouri Health CareGnhzrggtaj86-05-2347 History of Present illness Narrative* Giovani Hagen [...] DAY IN THE MORNING 30 tablet 2 Zawbqzxpgub-Snxkaluff-Hciswx 100-62.5-25 MCG/ACT aerosol powder Inhale 1 puff [...] of spine - Primary Relevant Medications HYDROcodone-acetaminophen ([place]) 5-325 MG tablet Other Relevant Orders Ambulatory referral to Pain Medicine No follow-ups on file. documented in this encounterUniversity of Missouri Health CareOzikuxazki51-22-7393 Telephone encounter Note* Telephone Encounter - VINH Roque - 05/09/2024 1:07 PM EST Patient has appointment today. [facility] CareMscahgvmzo30-74-4686 History of Present illness Narrative* Prateek Pitts DPM - 05/08/2024 3:10 PM EST Patient: [...] with cardiac clearance and was cleared by DrRajesh Was unable to do surgery. Patient also [...] THE MORNING, Disp: 30 tablet, Rfl: 2 Bmqtwmxltti-Iqlwtgome-Yoaync 100-62.5-25 MCG/ACT aerosol powder , Inhale 1 [...] 0 min Stress: Stress Concern Present (04/18/2023) [employer] - Occupational Stress Questionnaire Feeling of Stress : Very much Social Connections: Moderately Integrated (04/18/2023) Social Connection and Isolation Panel [NHANES] Frequency of Communication with Friends and Family: Three times a week Frequency of Social Gatherings with Friends and Family: Twice a week Attends Sabianist Services: Never Active Member of Clubs or [...] base of the right foot MRI: [place] [address] Magnetic Resonance Report Signed Patient: ORION HARPER MR#: [id number] : 1990 Acct:[id number] Age/Sex: 33 / F ADM Date: 03/14/24 Loc: MRI Attending Dr: Laurie Navas M.D. Ordering Physician: Laurie Navas M.D. Date of Service: 03/14/24 Procedure(s): MR ankle RT wo con Accession Number(s): [id number] cc: GIOVANI HAGEN ; Laurie Navas M.D. [facility] [place] [address] Patient Name: ORION HARPER MRN: [facility]:[id number] date: 1990 Sex: F Assigned Patient Location: MRI Current Patient Location: Accession/Order Number: [id number] Exam Date: 03/14/2024 15:04 Report Date: 03/17/2024 [...] intervention as deemed necessary if warranted. Prateek Pitts DPM documented in this encounterUniversity of Missouri Health CareVzhvagoeam75-51-2554 Telephone encounter Note* Telephone Encounter - Criss Mccrary - 05/06/2024 1:40 PM EST Echo was faxed to Anne-Marie @ [phone] & scanned into outside ep. Patient is having a procedure. Criss Mccrary [facility]01-13-2025 Miscellaneous Notes* Telephone Encounter - Criss Holm - 05/06/2024 1:40 PM EST Echo was faxed to Anne-Marie @ [phone] & scanned into outside ep. Patient is having a procedure. Criss Mccrary documented in this encounterUniversity Hospitals Portage Medical Center01-10-2025 Telephone encounter Note * Telephone [...] seen at that time. Lydia Kelley DO [facility]01-09-2025 NoteHNO ID: [id number] Author: ZEHRA GRAY PA-C Service: ? Author Type: Physician Tack Maker Type: Progress Notes Filed: 05/02/2024 11:34 Note [...] Q, Glynn T, Gifty J, Renard H, Carpio T. Controlled attenuation parameter for assessment of hepatic steatosis grades: a diagnostic meta-analysis. Int J Clin Exp Med. 2015 Jan 15;8(10):66428-69. PMID: 36688427; PMCID: DOP2690015. Ruthann Bob, Juan MEEK, Rico M, Cosmo F, Tawnya J, Everardo O, Leyla F, Franci M, Alejandro G, Dorie A, Gianna E, Leyla L, French G, Kashmir A, Vicente U, Jodi S, Franc P, Max V, Last V, Leena M, Neo MARIE. Refining the Baveno elastography criteria for the definition of compensated advanced chronic liver disease. J Hepatol. 2020;74(5):2397-9904. doi: 10.1016/j.jhep.2020.11.050. Epub 2019Apr 01. PMID: 88335357. Izabel Bob, Chastity Moran, Martha Bbo, Xiao Bob, Joon S, Nuria Roth, Trevin Roth, Trixie Kendrick. AASLD practice guidance on the clinical assessment and management of nonalcoholic fatty liver disease. Hepatology. 2022;77(5):6872-9273. doi:10.1097/HEP.1629389057050482AysvyarhyWood [facility] Hospital [facility] History of Present illness Narrative* [...] and referral to hepatology. Zehra Gray PA-C [facility] Fibroscan Fibrosis Risk <7 kPA [...] Int J Clin Exp Med. 2015 Jan 15;8(10):57521-48.PMID: 30036192; PMCID: RWV1764452. Ruthann M, Juan FANTASMA, Rico M, Cosmo F, Tawnya J, Everardo O, Leyla F, Franci M, Alejandro G, Dorie A, Gianna E, Leyla L, French G, Kashmir A, Vicente U, Jodi S, Jordan, Lucilao V, de Manuelainghen V, Leena M, Neo EA. Refining the Baveno elastography criteria for the definition of compensated advanced chronic liver disease. J Hepatol. 2020;74(5):0654-7816. doi: 10.1016/j.jhep.2020.11.050. Epub 2019Apr 01. PMID: 30736641. Izabel Bob, Chastity Moran, Martha Bob, Xiao Bob, Nuria Varghese, Trevin Roth, Trixie [place].AASLD practice guidance on the clinical assessment and management of nonalcoholic fatty liver disease. Hepatology. 2022;77(5):1797- 1835. doi:10.1097/HEP.2280224578148776 documented in this encounterUniversity Hospitals Portage Medical Center01-07-2025 History of Present illness Narrative* Sandy Toribio, NEGATIVE SPOTTER - 04/30/2024 2:50 PM EST Reason for [...] on 05/23/[address] Starr at [facility]. MEDICATIONS Current Outpatient Medications Medication Instructions [...] escitalopram (LEXAPRO) 20 mg, Oral, Every morning Zbgxygkdxwp-Nnhpkccdh-Cefucu 100-62.5-25 MCG/ACT aerosol powder 1 puff, Inhalation, [...] Attention deficit hyperactivity disorder, predominantly inattentive type ([facility]) 09/23/2022 Bipolar disorder, in partial remission, most recent episode manic ([facility]) 09/23/2022 Diverticular disease of colon 09/23/2022 Dysphagia 09/23/2022 Elevated liver enzymes 09/23/2022 Exercise induced bronchospasm ([facility]) 09/23/2022 Finding of above normal blood pressure 09/23/2022 History of hysterectomy 09/23/2022 Hyperglycemia 09/23/2022 Hypersexuality 09/23/2022 Insomnia 09/23/2022 Irritable bowel syndrome with constipation 09/23/2022 Mild intermittent asthma without complication ([facility]) 09/23/2022 Mood swings 09/23/2022 Nephrolithiasis 09/23/2022 Nonalcoholic steatohepatitis (ENGLISH) 09/23/2022 Other specified abnormal findings of blood chemistry 09/23/2022 Poor concentration 09/23/2022 Sacroiliitis, not elsewhere classified ([facility]) 09/23/2022 Skin pain 09/23/2022 Thyroid enlargement ([facility]) 09/23/2022 Atherosclerosis of aorta ([facility]) 06/16/2020 Atherosclerosis of both carotid arteries 11/16/2020 Atherosclerosis of coronary artery without angina pectoris ([facility]) 05/18/2021 Gastroesophageal reflux disease without esophagitis 07/09/2019 Gastroparesis 11/02/2022 Non-refractory idiopathic generalized epilepsy ([facility]) 11/22/2019 Osteoarthritis of knee 06/14/2019 Hypercholesterolemia ([facility]) 07/01/2021 Recurrent UTI 12/12/2022 Vitamin D deficiency 05/16/2019 Dizziness 12/13/2022 Acute nonintractable headache 12/13/2022 History of COVID-19 02/06/2023 Overweight 02/06/2023 Acute biliary pancreatitis without infection or necrosis 03/21/2023 Calculus of gallbladder without cholecystitis without obstruction 03/23/2023 Cholecystitis 04/18/2023 Encounter for postoperative care 04/18/2023 History of acute pancreatitis 04/18/2023 History of cholecystectomy 04/18/2023 Cough 04/18/2023 Anaphylactic syndrome 04/18/2023 PTSD (post-traumatic stress disorder) ([facility]) 02/24/2015 Tinea 10/03/2023 Weight gain 10/03/2023 Glucose intolerance 10/03/2023 Dyshidrosis 10/03/2023 Encounter for well adult exam without abnormal findings 12/04/2023 Cervical radiculopathy 12/26/2023 Obesity (BMI 35.0-39.9 without comorbidity) 02/06/2024 Localized edema 02/06/2024 Injury of right ankle 02/06/2024 Sprain of anterior talofibular ligament of right ankle 04/01/2024 Pain and swelling of left shoulder 04/03/2024 Asthmatic bronchitis with acute exacerbation ([facility]) 04/16/2024 Snoring 04/16/2024 Resolved Ambulatory Problems [...] nursing note reviewed. Exam conducted with a nurse practical present. Vitals: Estimated body mass index is [...] reviewed, and patient is to proceed to [facility] OR. Follow Up: Patient is to follow up between 1-2 weeks post operative to assess proper healing and recovery fromprocedure. Documented by Sandy Toribio LPN on behalf of: Darwin Starr DO documented in this encounterUniversity of Missouri Health CareHogwfqnjrs07-32-5864 History of Present illness Narrative* Iliana Mercado [...] she saw Dr. Hylton in 2021 in [facility]. 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 Hylton who is wind instrument repairer We discussed seeing endocrinology to help with [...] -Fibroscan Iliana Mercado PA-C documented in this encounterUniversity Hospitals Portage Medical Center01-03-2025 NoteHNO ID: [id number] Author: ILIANA MERCADO PA-C Service: ? Author Type: Physician Tack Maker Type: Progress Notes Filed: 04/26/2024 15:02 Note [...] she saw Dr. Hylton in 2021 in [facility]. 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 Hylton who is wind instrument repairer We discussed seeing endocrinology to help with [...] Narrative I have pers (more content not included)...[facility]01-03-2025 Instructions* Patient Instructions* Iliana Mercado PA-C [...] do not hesitate to send me a Mixaloo message or call. Iliana Mercado PA-C documented in this encounterUniversity Hospitals Portage Medical Center01-03-2025 NoteHNO ID: [id number] Author: LYDIA KELLEY DO Service: ? Author [...] return to discuss consent (more content not included)...[facility]01-03-2025 History of Present illness Narrative* Lydia [...] Lydia Kelley D.O. M.P.H. documented in [place] encounterAlisha [place]ille [address]-30-2024 Telephone encounter Note * Telephone Encounter - BALDO STRONG - 04/22/2024 9:58 AM EST Patient states she was seen in office on 04-16 and then later in the week she ended up at the Urgent Care due to her cough. She would like Eva Pearls called in for her cough. [facility] CarePtovmzaprg67-36-7332 Miscellaneous Notes* Telephone Encounter - BALDO STRONG - 04/22/2024 9:58 AM EST Patient states she was seen in office on 04-16 and then later in the week she ended up at the Urgent Care due to her cough. She would like Eva Pearls called in for her cough. documented in this encounterUniversity of Missouri Health CareQatuqqovhn34-79-1881 History of Present illness Narrative* Josephine Gilman NP - 04/18/2024 4:35 PM EST Images from the original note were not included. [address] , [address] [facility], [address] P: [phone] F: [phone] [facility] Historian of [facility]: patient Orion Harper is a 33 y.o. [...] 20 tablet; Refill: 0 documented in this encounterUniversity of Missouri Health CareBstwgpagce94-03-0562 Telephone encounter Note* Telephone Encounter - Solo Carty MD - 04/08/2024 3:07 PM EST For [...] she is unable to do the treadmill [facility] Work Phone: 1(793) 864-834212-16-2024 Miscellaneous Notes* Telephone Encounter - Solo Carty MD - 04/08/2024 3:07 PM EST For [...] to do the treadmill documented in this encounterUniversity Hospitals Portage Medical Center12-13-2024 Telephone encounter Note * Telephone Encounter - Criss Mccrary - 04/05/2024 1:01 PM EST Outside ep I have a copy @ my desk Criss Mccrary [facility]12-13-2024 Miscellaneous Notes* Telephone Encounter - Criss Holm - 04/05/2024 1:01 PM EST Outside ep I have a copy @ my desk Criss Mccrary documented in this encounterUniversity Hospitals Portage Medical Center12-11-2024 History of Present illness Narrative* Deena Lyn [...] DAY IN THE MORNING 30 tablet 2 Fstxjefcngg-Sqeyxsomg-Gysyic 100-62.5-25 MCG/ACT aerosol powder INHALE 1 PUFF [...] No follow-ups on file. documented in this encounterUniversity of Missouri Health CareOjzeritsum84-38-9607 Telephone encounter Note* Telephone Encounter - Criss Mccrary - 04/02/2024 3:50 PM EST This 'Ankle Surgery Clearance' was faxed over to Dr. Giovani Lee'jeane Hagen (PCP) @ [phone] for signing. I spoke with the patient. Scanned into outside ep. Criss Mccrary [facility]12-10-2024 Miscellaneous Notes* Telephone Encounter - Criss Holm - 04/02/2024 3:50 PM EST This 'Ankle Surgery Clearance' was faxed over to Dr. Giovani Hagen (PCP) @ [phone] for signing. I spoke with the patient. Scanned into outside ep. Criss Mccrary documented in this encounterUniversity Hospitals Portage Medical Center12-09-2024 Miscellaneous Notes* Telephone Encounter - [...] follow up with Dr. Hylton who is wind instrument repairer We discussed seeing endocrinology to help with [...] Thanks, Connie Lucas, RN contains abnormal data [facility] LIVER PANEL Component Ref Range & [...] ALBUMIN GLOBULIN RATIO 1.3 ontains abnormal data [facility] LIVER PANEL Component Ref Range & [...] - 29 U/L 72 High Lipase Order: [id number] Component Ref Range & Units 1 yr ago Lipase 13 - 60 U/L 260 High Hepatic Function Panel Order: [id number] Component Ref Range & Units 1 yr [...] g/dL 5.7 Low Hepatic Function Panel Order: [id number] Component Ref Range & Units 1 yr [...] ntains abnormal data COMPREHENSIVE METABOLIC PANEL Order: [id number] Component Ref Range & Units 1 yr [...] Filt Rate >60 mL/min/1.73m2 >60 Lipase Order: [id number] Component Ref Range & Units 1 yr [...] follow up with Dr. Hylton who is wind instrument repairer We discussed seeing endocrinology to help with [...] FRONTAL/LAT Carol Winn MD documented in this encounterUniversity [facility]als [facility]12-09-2024 Telephone encounter Note * Telephone Encounter - Keri Jamil - 04/01/2024 11:18 AM EST Pt called to schedule, per message below. First Est slot is July 26 for VV. Please review and advise if a New Pt slot can be used for this Pt. Thank you, [facility]12-09-2024 History of Present illness Narrative* [...] DAY IN THE MORNING 30 tablet 2 Yqlwlfrxbhv-Uuaosqstn-Mzihmi 100-62.5-25 MCG/ACT aerosol powder INHALE 1 PUFF [...] No follow-ups on file. documented in this encounterUniversity of Missouri Health [id number] Telephone encounter Note* Telephone Encounter - Carol Winn MD - 03/29/2024 9:06 PM EST I saw her in the past for this Per my note, Was seen by Dr. Hylton locally Will obtain labs and fibroscan results She had Nausea and vomiting with statin Couldn't tolerate metformin due to nausea/vomiting and diarrhea She can still follow up with Dr. Hylton who is wind instrument repairer We discussed seeing endocrinology to help with weight loss and insulin resistance We also discussed cutting back on ETOH to one drink a week (currently 3-4 drinks a week) Did she follow up with Dr. Hylton? She can schedule OV with me if she prefers [facility] Work Phone: [phone] 729-754612-06-2024 Telephone encounter Note* Telephone Encounter - Connie Lucas RN - 03/29/2024 10:[address] Winn, Pt JESSE Dx Fatty Liver, Liver Disease PT sent MYC message requesting a follow up labs show elevated LFTs and wanted them reviewed Please advise Thanks, Connie Lucas RN contains abnormal data [facility] LIVER PANEL Component Ref Range & [...] ALBUMIN GLOBULIN RATIO 1.3 ontains abnormal data [facility] LIVER PANEL Component Ref Range & [...] - 29 U/L 72 High Lipase Order: [id number] Component Ref Range & Units 1 yr ago Lipase 13 - 60 U/L 260 High Hepatic Function Panel Order: [id number] Component Ref Range & Units 1 yr [...] g/dL 5.7 Low Hepatic Function Panel Order: [id number] Component Ref Range & Units 1 yr [...] ntains abnormal data COMPREHENSIVE METABOLIC PANEL Order: [id number] Component Ref Range & Units 1 yr [...] Filt Rate >60 mL/min/1.73m2 >60 Lipase Order: [id number] Component Ref Range & Units 1 yr [...] follow up with Dr. Hylton who is wind instrument repairer We discussed seeing endocrinology to help with [...] XR CHEST 2V FRONTAL/LAT Carol Winn MD [facility]12-04-2024 Telephone encounter Note* Telephone Encounter - VINH Roque - 03/27/2024 1:03 PM EST OARRS reviewed, Rx sent into patient's pharmacy. [facility] CareWbotuykqbk70-96-3567 Miscellaneous Notes* Telephone Encounter - VINH Roque - 03/27/2024 1:03 PM EST OARRS reviewed, Rx sent into patient's pharmacy. * Telephone Encounter - Monet Motley MA - 03/27/2024 12:35 PM EST Per hieu to increase tramadol 50mg 2 po every 6 prn documented in this encounterUniversity of Missouri Health CareCvyeiyzkbz95-47-3641 Telephone encounter Note* Telephone Encounter - Monet Motley MA - 03/27/2024 12:35 PM EST Per hieu to increase tramadol 50mg 2 po every 6 prn [facility] CareTshdlxlgzz61-97-5407 Telephone encounter Note* Telephone Encounter - Giovani Hagen MD - 03/25/2024 3:59 PM EST Images from the original note were not included. Patient: Orion Harper : 1990 PCP: Giovani Hagen MD Orion Harper is a 33 y.o. female presenting today [facility]. The main problem requiring [...] Flowsheet Row Patient Outreach from 01/17/2024 in [facility] with [facility] Hospital Information Discharge Date 01/10/24 Discharged To: Home Setting Discharge Hospital [facility] Engagement Call Start Time 1232 [...] End Time 1233 No follow-ups on file. [facility] HospitalOkuqtjtlgx21-69-2538 Miscellaneous Notes* Telephone Encounter - Giovani Hagen MD - 03/25/2024 3:59 PM EST Images from the original note were not included. Patient: Orion Harper : 1990 PCP: Giovani Hagen MD Orion Harper is a 33 y.o. female presenting today for [facility]-up [facility]. The main problem requiring [...] Flowsheet Row Patient Outreach from 01/17/2024 in [facility] with [facility] Hospital Information Discharge Date 01/10/24 Discharged To: Home Setting Discharge Hospital [facility] Engagement Call Start Time 1232 [...] are in the chart. documented in this encounterUniversity of Missouri Health CareZkcacnjpkj63-22-0752 Telephone encounter Note* Telephone Encounter - BALDO STRONG - 03/25/2024 1:02 PM EST Patient called asking about the results of her MRI, please advise. Results are in the chart. [facility] CareKejaqhkytc13-94-3589 History of Present illness Narrative* Sandy Toribio [...] escitalopram (LEXAPRO) 20 mg, Oral, Every morning Wlqezrogygr-Niopjkgng-Ugpkmt 100-62.5-25 MCG/ACT aerosol powder INHALE 1 PUFF [...] Attention deficit hyperactivity disorder, predominantly inattentive type ([facility]) 09/23/2022 Bipolar disorder, in partial remission, most recent episode manic ([facility]) 09/23/2022 Diverticular disease of colon 09/23/2022 Dysphagia 09/23/2022 Elevated liver enzymes 09/23/2022 Exercise induced bronchospasm ([facility]) 09/23/2022 Finding of above normal blood pressure 09/23/2022 History of hysterectomy 09/23/2022 Hyperglycemia 09/23/2022 Hypersexuality 09/23/2022 Insomnia 09/23/2022 Irritable bowel syndrome with constipation 09/23/2022 Mild intermittent asthma without complication ([facility]) 09/23/2022 Mood swings 09/23/2022 Nephrolithiasis 09/23/2022 Nonalcoholic steatohepatitis (ENGLISH) 09/23/2022 Other specified abnormal findings of blood chemistry 09/23/2022 Poor concentration 09/23/2022 Sacroiliitis, not elsewhere classified ([facility]) 09/23/2022 Skin pain 09/23/2022 Thyroid enlargement ([facility]) 09/23/2022 Atherosclerosis of aorta ([facility]) 06/16/2020 Atherosclerosis of both carotid arteries 11/16/2020 Atherosclerosis of coronary artery without angina pectoris ([facility]) 05/18/2021 Gastroesophageal reflux disease without esophagitis 07/09/2019 Gastroparesis 11/02/2022 Non-refractory idiopathic generalized epilepsy ([facility]) 11/22/2019 Osteoarthritis of knee 06/14/2019 Hypercholesterolemia ([facility]) 07/01/2021 Recurrent UTI 12/12/2022 Vitamin D deficiency 05/16/2019 Dizziness 12/13/2022 Acute nonintractable headache 12/13/2022 History of COVID-19 02/06/2023 Overweight 02/06/2023 Acute biliary pancreatitis without infection or necrosis 03/21/2023 Calculus of gallbladder without cholecystitis without obstruction 03/23/2023 Cholecystitis 04/18/2023 Encounter for postoperative care 04/18/2023 History of acute pancreatitis 04/18/2023 History of cholecystectomy 04/18/2023 Cough 04/18/2023 Anaphylactic syndrome 04/18/2023 PTSD (post-traumatic stress disorder) ([facility]) 02/24/2015 Tinea 10/03/2023 Weight gain 10/03/2023 Glucose [...] Abnormal LFTs Abnormal liver ultrasound 06/15/2022 Asthma ([facility]) COVID 03/11/2021 Delayed gastric emptying 09/12/2022 [...] nursing note reviewed. Exam conducted with a nurse practical present. Vitals: Estimated body mass index is [...] of: Darwin Starr DO documented in this encounterUniversity of Missouri Health CarePnsanvowfj26-22-0367 Telephone encounter Note* Telephone Encounter - VINH Roque - 03/07/2024 11:20 AM EST OARRS reviewed, Rx sent into patient's pharmacy. [facility] [id number] Miscellaneous Notes* Telephone Encounter - VINH Roque - 03/07/2024 11:20 AM EST OARRS reviewed, Rx sent into patient's pharmacy. documented in this [facility]11-14-2024 Telephone encounter Note* Telephone Encounter - VINH Roque - 03/07/2024 9:14 AM EST OARRS reviewed, Rx sent into patient's pharmacy. [facility] [id number] Miscellaneous Notes* Telephone Encounter - VINH Roque - 03/07/2024 9:14 AM EST OARRS reviewed, Rx sent into patient's pharmacy. * Telephone Encounter - Sasha Ng - 03/06/2024 4:22 PM EST ALPRAZolam (Xanax) 0.5 MG tablet [facility] documented in this encounterUniversity of Missouri Health CareRqsrdpkcwh10-48-2638 History of Present illness Narrative* Arun Triana PTA - 03/06/2024 4:30 PM EST Physical [...] to be instructed in home exercise program. [facility] Goals: To be met in 10 weeks [...] 03/07/2024 2:57 PM EST documented in this encounterUniversity of Missouri Health CareZclxyhsjlg36-37-6222 Telephone encounter Note* Telephone Encounter - Sasha Ng - 03/06/2024 4:22 PM EST ALPRAZolam (Xanax) 0.5 MG tablet [facility] CareIggsrnkysb28-69-1202 History of Present illness Narrative* Zhen Burgess, [...] to be instructed in home exercise program. [facility] Cardiac Catheterization Goals: To be met in 10 weeks [...] Please sign below. Date: documented in this encounterUniversity of Missouri Health CareWvmdjjbulz89-84-6162 History of Present illness Narrative* Giovani Hagen [...] DAY IN THE MORNING 30 tablet 2 Rwfbzgxttfb-Ndrjpzizf-Hgyupr 100-62.5-25 MCG/ACT aerosol powder INHALE 1 PUFF [...] CT ANGIOGRAM CHEST 07/30/2018 CT ANGIOGRAM CHEST [facility] DATA LEGAC[facility] EGD 06/30/2022 Normal hypopharynx, [...] No follow-ups on file. documented in this encounterUniversity of Missouri Health CareHdhffkjzqy84-79-0175 Telephone encounter Note* Telephone Encounter - Millicent Cordova - 01/29/2024 11:22 AM EDT 25 visits out to 10/21/24 [facility] CareNpdlvmzjue36-78-1625 Miscellaneous Notes* Telephone Encounter - Millicent Cordova - 01/29/2024 11:22 AM EDT 25 visits out to 10/21/24 documented in this encounterUniversity of Missouri Health [id number] History of Present illness Narrative* Acacia Yaritza, NEGATIVE SPOTTER - 01/22/2024 1:50 PM EDT Reason for [...] escitalopram (LEXAPRO) 20 mg, Oral, Every morning Hkmceuuxfri-Nzpmijrym-Otbxaf 100-62.5-25 MCG/ACT aerosol powder INHALE 1 PUFF [...] Elevated liver enzymes 09/23/2022 Exercise induced bronchospasm ([facility]) 09/23/2022 Finding of above normal blood pressure 09/23/2022 History of hysterectomy 09/23/2022 Hyperglycemia 09/23/2022 Hypersexuality 09/23/2022 Insomnia 09/23/2022 Irritable bowel syndrome with constipation 09/23/2022 Mild intermittent asthma without complication ([facility]) 09/23/2022 Mood swings 09/23/2022 Nephrolithiasis 09/23/2022 Nonalcoholic steatohepatitis (ENGLISH) 09/23/2022 Other specified abnormal findings of blood chemistry 09/23/2022 Poor concentration 09/23/2022 Sacroiliitis, not elsewhere classified ([facility]) 09/23/2022 Skin pain 09/23/2022 Thyroid enlargement ([facility]) 09/23/2022 Atherosclerosis of aorta ([facility]) 06/16/2020 Atherosclerosis of both carotid arteries 11/16/2020 Atherosclerosis of coronary artery without angina pectoris ([facility]) 05/18/2021 Gastroesophageal reflux disease without esophagitis 07/09/2019 Gastroparesis 11/02/2022 Non-refractory idiopathic generalized epilepsy ([facility]) 11/22/2019 Osteoarthritis of knee 06/14/2019 Hypercholesterolemia ([facility]) 07/01/2021 Recurrent UTI 12/12/2022 Vitamin D deficiency 05/16/2019 Dizziness 12/13/2022 Acute nonintractable headache 12/13/2022 History of COVID-19 02/06/2023 Overweight 02/06/2023 Acute biliary pancreatitis without infection or necrosis 03/21/2023 Calculus of gallbladder without cholecystitis without obstruction 03/23/2023 Cholecystitis 04/18/2023 Encounter for postoperative care 04/18/2023 History of acute pancreatitis 04/18/2023 History of cholecystectomy 04/18/2023 Cough 04/18/2023 Anaphylactic syndrome 04/18/2023 PTSD (post-traumatic stress disorder) ([facility]) 02/24/2015 Tinea 10/03/2023 Weight gain 10/03/2023 [...] nursing note reviewed. Exam conducted with a nurse practical present. Vitals: Estimated body mass index is [...] of: Darwin Starr DO documented in this encounterUniversity of Missouri Health [id number] History of Present illness Narrative* Giovani Hagen [...] DAY IN THE MORNING 30 tablet 2 Ifixnxvoqld-Efrowiuqf-Jjxjfc 100-62.5-25 MCG/ACT aerosol powder INHALE 1 PUFF [...] No follow-ups on file. documented in this [facility]09-16-2024 Telephone encounter Note* Telephone Encounter - Mala Hirsch - 01/08/2024 12:52 PM EDT [facility] [place] [facility] Health CareFawiwxedmf77-50-1247 Miscellaneous Notes* Telephone Encounter - Mala Hirsch - 01/08/2024 12:52 PM EDT [facility] documented in this [facility]09-05-2024 Hospital Discharge instructions Patient Education 12/28/2023 15:59:41 Kidney Stones, Hspb-ei-Soyc Kidney Stones Kidney stones are rock-like masses [...] Follow these instructions at home: Medicines Take buhg-uyb-dzekmld and prescription medicines only as told by [...] provider. Document Revised: 12/02/2022 Document Reviewed: 12/02/2022 [employer] Patient Education [address] Follow Up Care 11/07/2022 15:52:12 With:BHAVESH DEJESUS PA-C, MATTHEWL Address: When:1 year [facility] 09-03-2024 History of Present illness Narrative* [...] DAY IN THE MORNING 30 tablet 2 Zbxxcnovbkb-Dzquwmsbn-Zmjjev 100-62.5-25 MCG/ACT aerosol powder INHALE 1 PUFF [...] No follow-ups on file. documented in this encounterUniversity of Missouri Health [id number] History of Present illness Narrative* Belle Mckoy Tech - 12/19/2023 3:44 PM EDT EVENT MONITOR DISPOSABLE PATCH INSTRUCTIONS Patient Name: Orion Harper [facility] Number: [id number] Skin prepped and cleansed with alcohol Patch secured to prepped area Monitor Activated Serial #: [id number] Patient Instructed: Prescribed order timeframe Bathing guidelines Usage of event button and diary documentation Return of monitor at the end of prescribed order Call with problems [phone] or [phone]. [phone] Patient expresses a good understanding of instructions Tristian Pretty documented in this encounterUniversity Hospitals Portage Medical Center08-27-2024 Instructions* Patient Instructions* Solo Carty MD - 12/19/2023 3:27 PM EDT Next Steps: 1). Please wear a heart monitor for 2 weeks and mail it back 2). Please get a stress echo done and follow up with me afterwards documented in this encounterUniversity Hospitals Portage Medical Center08-27-2024 History of Present illness Narrative* Solo Carty MD - 12/19/2023 2:45 PM EDT Images from the original note were not included. [facility] [place] Meghna Hooker Department of Cardiovascular Medicine SECTION OF CARDIAC PACING and ELECTROPHYSIOLOGY OUTPATIENT VISIT DATE December 19, 2023 OUTPATIENT VISIT TYPE NEW PRIMARY CARE PHYSICIAN: Giovani Hagen MD [address] [place] [address] CHIEF COMPLAINT: Syncope, cardiac evaluation for family [...] had any workup done including Stress Echo, electric melt operator or 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 Reports symptoms of [...] had any workup done including Stress Echo, electric melt operator or 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 PLAN AND RECOMMENDATIONS: - Exercise stress echo for exertional syncope to rule out structural or arrhythmic cause - 2 week tina Fitzgerald personally interviewed, confirmed and edited the above information as obtained by others. CONTACT INFORMATION: Solo Carty MD documented in this encounterUniversity Hospitals Portage Medical Center08-26-2024 Telephone encounter Note * Telephone Encounter - RT. Aroldo Calvo - 12/18/2023 10:09 AM EDT Patient had labwork performed on 12-13-2023. Dr. Colvin wanted you to be aware so you could review them. [facility] CareMcdzidqecj61-68-2026 Miscellaneous Notes* Telephone Encounter - RT. Aroldo Calvo - 12/18/2023 10:09 AM EDT Patient had labwork performed on 12-13-2023. Dr. Colvin wanted you to be aware so you could review them. documented in this encounterUniversity of Missouri Health CareYcucesnwgh38-51-2554 Telephone encounter Note* Telephone Encounter - Criss Mccrary - 11/02/2023 10:39 AM EDT Images from the original note were not included. Records are in Care Everywhere: EP Referral- 11/01/23 (Dr. Shilo Dillon/Cardiology) Criss Mccrary [facility]07-11-2024 Miscellaneous Notes* Telephone Encounter - Criss Holm - 11/02/2023 10:39 AM EDT Images from the original note were not included. Records are in Care Everywhere: EP Referral- 11/01/23 (Dr. Shilo Dillon/Cardiology) Criss Mccrary documented in this encounterUniversity Hospitals Portage Medical Center11-27-2023 Miscellaneous Notes* Telephone Encounter - [...] PPI prior to transfer. documented in this encounterUniversity Hospitals Portage Medical Center07-13-2023 Miscellaneous Notes* Telephone Encounter - Janny Frances - 11/03/2022 3:18 PM EDT PA for Ibsrela initiated electronically. Awaiting response [facility] ID# [id number] Rx BIN [id number] Rx PCN CLAIMCR Rx Grp STOH documented in this encounterUniversity Hospitals Portage Medical Center07-12-2023 History of Present illness Narrative* Soraida Caldwell, PhD - 11/02/2022 5:16 PM EDT Behavioral Medicine [facility] [place] Name: Orion Harper MR#: [id number] Date: 11/02/2022 Time: 1 hour Referred by: [...] She was given the website for the [facility] Behavioral Medicine Program and shown the relaxation recordings with the recommendation to practice this and the rationale behind their use. Follow-up with Dr. Conteh was discussed as well as encouraging her to continue her PTSD work with a local trauma therapist. Soraida Zhang, Ph.D. documented in this encounterUniversity Hospitals Portage Medical Center07-12-2023 History of Present illness Narrative* Samuel Freeman MD - 11/02/2022 1:00 PM EDT Assessment ASSESSMENT 32 year old female with medical refractory gastroparesis. PLAN I discussed surgical therapy for gastroparesis in detail. Orion Harper is candidate for furthermedical treatment. Needs to stop Wegovy May consider for wireless motility capsule study Constipation medication change per Dr. 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 DO Palomo Keller Sp Ddsi Clinical Pool Please ask her to see ADJUNCT INSTRUCTOR IN ECONOMICS to r/o endometriosis there was a very slight abnormal wave (not strong) suggesting its possible Called and spoke with the patient and relayed providers message. documented in this encounterUniversity Hospitals Portage Medical Center06-27-2023 Miscellaneous Notes* Telephone Encounter - Karen Haney LPN - 10/18/2022 11:43 AM EDT PA initiated via [employer]. Await response. Covered: Retail, Mail Order Unknown: Specialty, Long-Term Care Group ID: [id number] Group name: BIN: [id number] PCN: CLAIMCR documented in this encounterUniversity Hospitals Portage Medical Center06-27-2023 History of Present illness Narrative* Maria Dolores Corey DO - 10/18/2022 7:49 AM EDT Images from the original note were not included. documented in this encounterUniversity Hospitals Portage Medical Center06-26-2023 Nurse Note* Janny Frances - 10/17/2022 10:47 AM EDT EGG completed. Able to drink the 500 ml of water without any difficulty. documented in this encounterUniversity Hospitals Portage Medical Center05-22-2023 History of Present illness Narrative* [...] 10:11AM PATIENT DISCHARGED TO: Ambulatory patient, left [place] department area. A Diagnostic radioactive procedure has taken place, with no further precautions necessary other than routine body substance precautions. More information regarding radiation safety can be found usingthis link: [email or web address] SIGNATURE: RT Amber(Aroldo) PATIENT NAME: Orion Harper DATE: September 12, 2022 TIME: 2:45 PM PAGER/CONTACT #: documented in this encounterUniversity Hospitals Portage Medical Center05-10-2023 Nurse Note* Wilma Limon RN [...] Wilma Limon RN In Department: AMBULATORY SURGERY [facility]05-10-2023 Nurse Note* Wilma Limon RN [...] In Department: AMBULATORY SURGERY documented in this encounterUniversity Hospitals Portage Medical Center05-10-2023 History and physical note * [...] DATE: August 31, 2022 TIME: 2:51 PM [facility]05-10-2023 History and physical note* Carol [...] 2022 TIME: 2:51 PM documented in this encounterUniversity Hospitals Portage Medical Center05-10-2023 Nurse Note* Ayleen Aj RN [...] Ayleen Aj RN In Department: AMBULATORY SURGERY [facility]05-03-2023 Miscellaneous Notes* Telephone Encounter - Светлана Agosto Ma - 08/24/2022 3:59 PM EDT Lm to confirm procedure for 08-31-22 documented in this encounterUniversity Hospitals Portage Medical Center03-14-2023 Hospital Discharge instructions Patient Education [...] degrees Follow Up Care 06/29/2022 09:09:39 With:Madhuri ORTIZ Address: [facility] [address] [place] [address]- Business (1) When:11/04/2022 08:39:10 Comments:With a stone metabolic work-up [facility]03-09-2023 Nurse Note* Wilma Limon RN - 06/30/2022 12:46 PM EST Pt denies any nausea at this time. Pt given 3 oz of apple juice per request and tolerating at this time. Pt denies any other s/s at this time, smiling in conversation, 500ml of Nacl completed as well. Pt reports she feels ready to go home. [facility]03-09-2023 Nurse Note* Wilma Limon RN [...] Limon In Department: AMBULATORY SURGERY * Elissa Napoles RN - 06/30/2022 11:27 AM EST PRE OP LEARNING ASSESSMENT PROCEDURE/SURGERY: GI PROCEDURES: EGD READINESS TO LEARN COGNITIVE ABILITY: Alert and oriented MOTIVATION TO LEARN: Interested FAMILY SUPPORT: High - Very involved in pt care PATIENT LEARNS BEST BY: Individual Instruction Written Instruction - Hand-outs Verbal Instruction FACTORS AFFECTING LEARNING: None PHYSICAL LIMITATIONS AFFECTING LEARNING: None Electronically Signed By: Elissa Napoles RN In Department: AMBULATORY SURGERY documented [facility]* Wilma Limon RN [...] Pt resting in bed at this time. [facility]03-09-2023 Nurse Note* Wilma Limon RN - [...] By: Wilma Limon In Department: AMBULATORY SURGERY [facility]03-09-2023 History and physical note* Carol Winn [...] DATE: June 30, 2022 TIME: 11:35 AM [facility]03-09-[facility]23 History and physical note* Carol [...] 2022 TIME: 11:35 AM documented in this encounterUniversity [facility] Nurse Note* Elissa Napoles RN - 06/30/2022 11:27 AM EST PRE OP LEARNING ASSESSMENT PROCEDURE/SURGERY: GI PROCEDURES: EGD READINESS TO LEARN COGNITIVE ABILITY: Alert and oriented MOTIVATION TO LEARN: Interested FAMILY SUPPORT: High - Very involved in pt care PATIENT LEARNS BEST BY: Individual Instruction Written Instruction - Hand-outs Verbal Instruction FACTORS AFFECTING LEARNING: None PHYSICAL LIMITATIONS AFFECTING LEARNING: None Electronically Signed By: Elissa Napoles RN In Department: AMBULATORY SURGERY [facility]03-02-[facility]23 Miscellaneous Notes* Telephone Encounter - Светлана Agosto Ma - 06/23/2022 3:18 PM EST Confirmed procedure for 06-30-22 documented in this encounterUniversity [facility] History of Present illness Narrative* [...] 15, 2022 8:08 PM documented in this encounterUniversity [facility]23 Miscellaneous Notes* Telephone Encounter - [...] Carol Winn MD 06/14/2022 9:29 AM EST Ks Milly, the CT scan showed Fatty liver [...] if needed pending results documented in this encounterUniversity [facility] History of Present illness Narrative* [...] 10, 2022 10:01 AM documented in this encounterUniversity [facility] History of Present illness Narrative* [...] 27, 2022 12:29 PM documented in this encounterUniversity [facility]23 History of Present illness Narrative* [...] follow up with Dr. Hylton who is wind instrument repairer We discussed seeing endocrinology to help with [...] No follow-ups on file. documented in this encounterUniversity [facility]-10-[facility]23 Evaluation note* Encounter Date Diagnosis Assessment Notes Treatment Notes Treatment Clinical Notes Apr, ENGLISH (nonalcoholic steatohepatit is) (ICD-10 - K75.81) Apr,bnormal ultrasound (ICD-10 - R93.89) Apr,Elevated liver enzymes (ICD-10 - R74.8) Apr,Liver cyst (ICD-10 - K76.89) [place] Other Evaluation + Plan note Future Appointments Appointment Date:06/30/2022 10:00:00 AM Scheduled Provider: Location:[facility] Appointment Type:Urology CALL PAT FT Appointment Date:07/05/2022 08:15:00 AM Scheduled Provider: Location:[facility] Appointment Type:Urology FT Diagnostic Tests Pending * [facility] Appointment Date:11/07/2022 03:15:00 PM Scheduled Provider:Madhuri ORTIZ MD Location:[facility] App[facility]ments Appointment Date:12/30/2024 03:15:00 PM Scheduled Provider:Madhuri ORTIZ MD Location:[facility] Appointment Type:URO Office Visit [facility] evaluation + Plan note Future Appointments Appointment Date:12/31/2024 03:30:00 PM Scheduled Provider:Iliana Cramer PA-C Location:[facility] Appointment Type:URO Complex Office Visit [facility] evaluation + Plan note Future Appointments Appointment Date:12/31/2025 03:30:00 PM Scheduled Provider:Iliana Cramer PA-C Location:[facility] Appointment Type:URO Office Visit [facility] [place] evaluation noteNo assessment information available [facility] Work Phone: Evaluation note* Diagnosis Fatty liver- Primary Other chronic nonalcoholic liver disease Bilious vomiting with nausea Right sided abdominal pain Abdominal pain, unspecified site Nausea Nausea alone History of diverticulitis SOB (shortness of breath) Shortness of breath [facility] Diagnosis Liver lesion- Primary Other specified disorders of liver documented in this encounter [facility]* Diagnosis Gastroparesis- Primary documented in this encounter [facility]* Diagnosis Gastroparesis- Primary [facility]* Diagnosis Irritable bowel syndrome with constipation- Primary Irritable bowel syndrome [facility] Diagnosis Gastroparesis [facility]* Diagnosis Gastroparesis- Primary [facility]* Diagnosis SOB (shortness of breath) Shortness of breath [facility] Diagnosis Liver lesion Other specified disorders of liver [facility] Diagnosis Elevated LFTs Other abnormal blood chemistry [facility]* Diagnosis Bilious vomiting with nausea Right sided abdominal pain Abdominal pain, unspecified site Nausea Nausea alone documented in this encounter [facility]* Diagnosis Nausea Nausea alone documented in this encounter [facility]* Diagnosis Gastroparesis- Primary documented in this encounter [facility]* Diagnosis Syncope and collapse- Primary documented in this encounter [facility]* Diagnosis Syncope, unspecified syncope type- Primary documented in this encounter [facility]* Diagnosis Syncope, unspecified syncope type- Primary documented in this encounter [facility]* Diagnosis Nausea- Primary Nausea alone PUD (peptic ulcer disease) Peptic ulcer, unspecified site, unspecified as acute or chronic, without mention of hemorrhage, perforation, or obstruction Nausea Nausea alone documented in this encounter [facility]* Diagnosis PUD (peptic ulcer disease)- Primary Peptic ulcer, unspecified site, unspecified as acute or chronic, without mention of hemorrhage, perforation, or obstruction Bilious vomiting with nausea Right sided abdominal pain Abdominal pain, unspecified site Nausea- Primary Nausea alone PUD (peptic ulcer disease) Peptic ulcer, unspecified site, unspecified as acute or chronic, without mention of hemorrhage, perforation, or obstruction documented in this encounter [facility]* Diagnosis Attention deficit hyperactivity [...] rectum and anus documented in this encounter [facility]* Diagnosis Attention deficit hyperactivity [...] type (CMS/HCC) documented [facility] encounter [facility]* Diagnosis Attention deficit [...] 35.0-39.9 without comorbidity) [facility] Diagnosis Elevated LFTs- Primary Other abnormal blood chemistry documented in this encounter [facility]* Diagnosis Elevated LFTs- Primary Other abnormal blood chemistry documented in this encounter [facility]* Diagnosis Attention deficit hyperactivity [...] system- Primary Mild intermittent asthma without complication ([facility]/HCC) Moderate persistent asthmatic bronchitis with acute exacerbation ([facility]/HCC)- Primary Sprain of anterior talofibular ligament of right ankle, subsequent encounter Snoring Other dyspnea and respiratory abnormality Peroneal tendon tear, right, initial encounter- Primary Sprain of anterior talofibular ligament of right ankle, subsequent encounter Osteochondritis dissecans of ankle, right Severe ankle sprain, right, initial encounter documented in this encounter [facility] HealthcareEvaluation [facility]* Diagnosis Right ankle instability- Primary Other joint derangement, not elsewhere classified, ankle and foot Right ankle instability Other joint derangement, not elsewhere classified, ankle and foot [facility] Diagnosis Sprain of anterior talofibular ligament of right ankle, initial encounter- Primary Right ankle instability Other joint derangement, not elsewhere classified, ankle and foot [facility]* Diagnosis Attention deficit hyperactivity disorder, predominantly inattentive type (CMS/HCC)- Primary Bipolar disorder, in partial remission, most recent episode manic ([facility]/HCC) Dizziness Dizziness and giddiness Nonintractable [...] of spine- Primary documented in this encounter [facility] HealthcareEvaluation note* Diagnosis ENGLISH (nonalcoholic steatohepatitis)- Primary Other chronic nonalcoholic liver disease Right ankle instability Other joint derangement, not elsewhere classified, ankle and foot [facility]* Diagnosis Attention deficit hyperactivity disorder, [...] cervix and uterus documented in this encounter [facility] HealthcareEvaluation note* Diagnosis BRBPR (bright red blood per rectum) Hemorrhage of rectum and anus documented in this encounter [facility]* Diagnosis Attention deficit hyperactivity [...] inattentive type (CMS/HCC) documented in this encounter [facility] HealthcareEvaluation note* Diagnosis Attention deficit hyperactivity [...] episode manic (/) Prediabetes Other abnormal glucose Peroneal tendon tear, [...] of impulse control PTSD (post-traumatic stress disorder) (CMS/[facility]) Posttraumatic stress disorder [facility] Diagnosis Other specified dyspareunia- Primary Pelvic pain in female Unspecified symptom associated with female genital organs Pelvic pain in female- Primary Unspecified symptom associated with female genital organs Other specified dyspareunia documented in this encounter [facility]* Diagnosis Pelvic pain in female- Primary Unspecified symptom associated with female genital organs Other specified dyspareunia documented in this encounter [facility]* Diagnosis Chronic idiopathic constipation Unspecified constipation documented in this encounter [facility]* Diagnosis Attention deficit hyperactivity disorder, predominantly [...] in partial remission, most recent episode manic ([facility]/HCC) Tremors of nervous system- Primary Mild intermittent asthma without complication ([facility]/HCC) Moderate persistent asthmatic bronchitis with acute exacerbation ([facility]/HCC)- Primary Sprain of anterior talofibular ligament of right ankle, subsequent encounter Snoring Other dyspnea and respiratory abnormality 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[facility]/HCC)- Primary 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), predominantly inattentive type ([facility]/HCC) Bipolar disorder, in partial remission, most recent episode manic ([facility]) Prediabetes Other abnormal glucose Anxiety- Primary Anxiety state, unspecified Generalized idiopathic epilepsy and epileptic syndromes, not intractable, without status epilepticus ([facility]) 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[facility]) Other disorder of impulse control PTSD (post-traumatic stress disorder) ([facility]) Posttraumatic stress disorder Peroneal tendon tear, right, initial encounter- Primary Right ankle instability Other joint derangement, not elsewhere classified, ankle and foot Contracture of right ankle documented in this encounter [facility]* Diagnosis Attention deficit hyperactivity disorder, predominantly inattentive type (CMS/HCC)- Primary Bipolar disorder, in partial remission, most recent episode manic ([facility]) Dizziness Dizziness and giddiness Nonintractable episodic headache, unspecified headache type Attention deficit hyperactivity disorder, predominantly inattentive type (CMS/HCC)- Primary Anxiety Anxiety state, unspecified Bipolar disorder, in partial remission, most recent episode manic ([facility]) History of cholecystectomy Other acquired absence of organ History of acute pancreatitis Anaphylaxis, sequela Cough, unspecified type Bipolar disorder, in partial remission, most recent episode manic ([facility]/HCC)- Primary Attention deficit hyperactivity disorder (ADHD), predominantly inattentive type (CMS/HCC) Attention deficit hyperactivity disorder, predominantly inattentive type (CMS/HCC) Anxiety Anxiety state, unspecified Encounter for well adult exam without abnormal findings- Primary Attention deficit hyperactivity disorder, predominantly inattentive type (CMS/HCC) Anxiety Anxiety state, unspecified Vitamin D deficiency Bipolar disorder, in partial remission, most recent episode manic ([facility]/HCC) Obesity (BMI 35.0-39.9 without comorbidity) [...] subsequent encounter- Primary documented in this encounter [facility] HealthcareEvaluation note* Diagnosis Palpitation- Primary Palpitations documented in this encounter [facility]* Diagnosis Attention deficit hyperactivity [...] system- Primary Mild intermittent asthma without complication ([facility]/HCC) Moderate persistent asthmatic bronchitis with acute exacerbation ([facility]/HCC)- Primary Sprain of anterior talofibular ligament of right ankle, subsequent encounter Snoring Other dyspnea and respiratory abnormality 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[facility]/HCC)- Primary 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), predominantly inattentive type (CMS/HCC) Bipolar disorder, in partial remission, most recent episode manic ([facility]) Prediabetes Other abnormal glucose Anxiety- Primary Anxiety state, unspecified Generalized idiopathic epilepsy and epileptic syndromes, not intractable, without status epilepticus ([facility]/HCC) 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[facility]/HCC) Other disorder of impulse control PTSD (post-traumatic [...] system- Primary Mild intermittent asthma without complication ([facility]/HCC) Moderate persistent asthmatic bronchitis with acute exacerbation ([facility]/HCC)- Primary Sprain of anterior talofibular ligament of right ankle, subsequent encounter Snoring Other dyspnea and respiratory abnormality 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[facility]/HCC)- Primary 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), predominantly inattentive type (CMS/HCC) Bipolar disorder, in partial remission, most recent episode manic (/) Prediabetes Other abnormal glucose Anxiety- Primary Anxiety state, unspecified Generalized idiopathic epilepsy and epileptic syndromes, not intractable, 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) 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[facility]/HCC) Other disorder of impulse control PTSD (post-traumatic stress disorder) ([facility]/HCC) Posttraumatic stress disorder Agoraphobia with [...] complication, sequela- Primary documented in this encounter [facility] HealthcareEvaluation note* Diagnosis Rectal pain- Primary Anal or rectal pain Hemorrhoids, unspecified hemorrhoid type documented in this encounter [facility]* Diagnosis Attention deficit hyperactivity disorder, predominantly inattentive type (CMS/HCC)- Primary Bipolar disorder, in partial remission, most recent episode manic ([facility]) Dizziness Dizziness and giddiness Nonintractable episodic headache, unspecified headache type Attention deficit hyperactivity disorder, predominantly inattentive type (CMS/HCC)- Primary Anxiety Anxiety state, unspecified Bipolar disorder, in partial remission, most recent episode manic (CMS/HCC) History of cholecystectomy Other acquired absence of organ History of acute pancreatitis Anaphylaxis, sequela Cough, unspecified type Bipolar disorder, in partial remission, most recent episode manic ([facility]/HCC)- Primary Attention deficit hyperactivity disorder (ADHD), predominantly inattentive type (CMS/HCC) Attention deficit hyperactivity disorder, predominantly inattentive type ([facility]/HCC) Anxiety Anxiety state, unspecified Encounter for well adult exam without abnormal findings- Primary Attention deficit hyperactivity disorder, predominantly inattentive type ([facility]/HCC) Anxiety Anxiety state, unspecified Vitamin [...] in partial remission, most recent episode manic ([facility]) Tremors of nervous system- Primary Mild intermittent asthma without complication ([facility]/HCC) Moderate persistent asthmatic bronchitis with [...] in this encounter [facility]* Diagnosis Pelvic floor dysfunction- Primary Pelvic muscle wasting Chronic constipation Unspecified constipation Gastroparesis documented [facility] this encounter [facility] Diagnosis Attention deficit hyperactivity [...] of status migrainosus [facility] Diagnosis Muscle spasm- Primary Spasm of muscle Pelvic floor dysfunction Pelvic muscle wasting Chronic constipation Unspecified constipation documented in this encounter [facility]* Diagnosis Pelvic floor dysfunction Pelvic muscle wasting Chronic constipation Unspecified constipation documented in this encounter [facility]* Diagnosis Pelvic floor dysfunction Pelvic muscle wasting Chronic constipation Unspecified constipation documented in this encounter [facility]* Diagnosis Pelvic floor dysfunction Pelvic muscle wasting Chronic constipation Unspecified constipation documented in this encounter [facility]* Diagnosis Attention deficit hyperactivity disorder, predominantly [...] Morbid (severe) obesity due to excess calories ([facility]) Impaired fasting glucose Obesity, class 2 Body mass index (BMI) 36.0-36.9, adult documented in this encounter [facility] HealthcareEvaluation note* Diagnosis Attention deficit [...] Morbid (severe) obesity due to excess calories ([facility]-HCC) Impaired fasting glucose Obesity, class 2 Body [...] Morbid (severe) obesity due to excess calories ([facility]-HCC) Impaired fasting glucose Obesity, class 2 Body [...] Morbid (severe) obesity due to excess calories ([facility]-HCC) Impaired fasting glucose Obesity, class 2 Body mass index (BMI) 36.0-36.9, adult Other synovitis and tenosynovitis, right ankle and foot- Primary Right foot pain Pain in soft tissues of limb Other enthesopathy of right foot and ankle documented in this encounter [facility] HealthcareEvaluation note* Diagnosis Chronic pelvic pain in [...] female genital organs [facility] this [facility] Diagnosis Attention deficit hyperactivity [...] Morbid (severe) obesity due to excess calories ([facility]-HCC) Impaired fasting glucose Obesity, class 2 Body mass index (BMI) 36.0-36.9, adult Well adult health check- Primary Unspecified general medical examination Chest pain, unspecified type Elevated liver enzymes Other nonspecific abnormal serum enzyme levels Type 2 diabetes mellitus without complication, without long-term current use of insulin (HCC) documented in this encounter [facility] [...] Morbid (severe) obesity due to excess calories ([facility]-HCC) Impaired fasting glucose Obesity, class 2 Body mass index (BMI) 36.0-36.9, adult Well adult health check- Primary Unspecified general medical examination Chest pain, unspecified type Elevated liver enzymes Other nonspecific abnormal serum enzyme levels Type 2 diabetes mellitus without complication, without long-term current use of insulin (HCC) Moderate persistent asthma with acute exacerbation (HCC)- Primary documented in this encounter [facility] [...] Morbid (severe) obesity due to excess calories ([facility]-HCC) Impaired fasting glucose Obesity, class 2 Body mass index (BMI) 36.0-36.9, adult Well adult health check- Primary Unspecified general medical examination Chest pain, unspecified type Elevated liver enzymes Other nonspecific abnormal serum enzyme levels Type 2 diabetes mellitus without complication, without long-term current use of insulin (HCC) Other synovitis and tenosynovitis, right ankle and [...] system- Primary Mild intermittent asthma without complication ([facility]) Moderate persistent asthmatic bronchitis with acute [...] Morbid (severe) obesity due to excess calories ([facility]) Impaired fasting glucose Obesity, class 2 [...] recurrent episode, moderate documented in this encounter [facility] HealthcareEvaluation note* Diagnosis Attention deficit hyperactivity [...] (severe) obesity due to excess calories (CMS-HCC) Impaired fasting glucose Obesity, class 2 Body [...] epileptic syndromes, not intractable, without status epilepticus ([facility]) Trichotillomania Other disorder of impulse control [...] Morbid (severe) obesity due to excess calories ([facility]) Impaired fasting glucose Obesity, class 2 Body mass index (BMI) 36.0-36.9, adult Well adult health check- Primary Unspecified general medical examination Chest pain, unspecified type Elevated liver enzymes Other nonspecific abnormal serum enzyme levels Type 2 diabetes mellitus without complication, without long-term current use of insulin ([facility]) Foot drop, left- Primary Other acquired deformity of ankle and foot Other synovitis and tenosynovitis, right ankle and foot Sprain of anterior talofibular ligament of right ankle, subsequent encounter Other enthesopathy of right foot and ankle [...] system- Primary Mild intermittent asthma without complication ([facility]) Moderate persistent asthmatic bronchitis with acute [...] Morbid (severe) obesity due to excess calories ([facility]) Impaired fasting glucose Obesity, class 2 Body [...] with panic disorder documented in this encounter [facility]History general Narrative - Reported* Type Description Date Medical History Anxiety Medical HistoryDepressionMedical HistoryDiverticulosisMedical Historybipolar Surgical HistoryC sectionSurgical HistoryhysterectomyHospitalization Historysee aboveHospitalization Ffafopwmbfvyspuwjohdk53/3/18Hospitalization HistoryNONE ON THE LAST YEAR [facility] Other Hospital course Narrative No data available for this section [facility] No data available for this section [facility] HospitalProgress note No data available for this section [facility] HospitalReason for referral (narrative)* Outpatient Procedure (Routine) - AuthorizedSpecialtyDiagnoses / ProceduresReferred By ContactReferred To [facility] Diagnoses Bilious vomiting with nausea Right sided abdominal pain Procedures EGD DIAGNOSTIC ESOPHAGOGASTRODUODENOSCOPY [place] [address] [place] [address] [facility] [address] [place] [address] Referral IDStatusReasonStart DateExpiration DateVisits RequestedVisits [id number] Auto-Generated Referral / * MRI/CT (Routine) - AuthorizedSpecialtyDiagnoses / ProceduresReferred By ContactReferred To ContactCT IMAGING Diagnoses Bilious vomiting with nausea Right sided abdominal pain Nausea Procedures CT ABD/PEL WO IVCON CT ABD & PELVIS W/O CONTRAST Carol Winn MD [address] [place] [phone] Ct Imaging Referral IDStatusReasonStart DateExpiration DateVisits RequestedVisits [id number] Auto-Generated Referral / [facility] for referral (narrative)* Diagnostic Procedure Only (Routine) - AuthorizedSpecialtyDiagnoses / ProceduresReferred By Contact Referred To ContactUS IMAGING Diagnoses Liver lesion Procedures US ABD RT UPPER QUADRANT US ABDOMINAL REAL TIME W/IMAGE LIMITED Carol Winn [place] [address] [place] [address] [facility] Referral IDStatusReasonStart DateExpiration DateVisits RequestedVisits [id number] Auto-Generated Referral / [facility] for referral (narrative)* Diagnostic Procedure Only (Routine) - ClosedSpecialtyDiagnoses / ProceduresReferred By ContactReferred To ContactUS IMAGING Diagnoses Liver lesion Procedures US ABD RT UPPER QUADRANT US ABDOMINAL REAL TIME W/IMAGE LIMITED Carol Winn MD [id number] [place] [address] [place] [address] Referral IDStatusReasonStgoodell DateExpiration DateVisits RequestedVisits [id number] Auto-Generated Referral / [facility] for referral (narrative)* Diagnostic Procedure Only (Routine) - ClosedSpecialtyDiagnoses / ProceduresReferred By ContactReferred To ContactUS IMAGING Diagnoses Elevated LFTs Procedures US ABD RT UPPER QUADRANT US ABDOMINAL REAL TIME W/[place] [address] [place] [address] [place] [address] Referral IDStatusReasonStgoodell DateExpiration DateVisits RequestedVisits [id number] Auto-Generated Referral / [facility] for referral (narrative)* Diagnostic Procedure Only (Routine) - ClosedSpecialtyDiagnoses / ProceduresReferred By ContactReferred To ContactMOLECULAR & FUNCTIONAL IMAGING Diagnoses Nausea Procedures NM GASTRIC EMPTYING SOLID [place] [address] [place] [address] [facility] [address] [place] [address] Referral IDStatus[facility] DateExpiration DateVisits RequestedVisits [id number] Auto-Generated Referral / [facility] for referral (narrative)* Outpatient Procedure (Routine) - AuthorizedSpecialtyDiagnoses / ProceduresReferred By ContactReferred To [facility] Diagnoses Gastroparesis Procedures ECG COMPLETE ECG ROUTINE ECG W/LEAST 12 LDS W/I&R Solo Carty MD [address] [place] [address] [facility] [place] [address] Referral IDStatusReasonStart DateExpiration DateVisits RequestedVisits [id number] Auto-Generated Referral / [facility] for referral (narrative)* Outpatient Procedure (Routine) - AuthorizedSpecialtyDiagnoses / ProceduresReferred By ContactReferred To [facility] Diagnoses Syncope and collapse Procedures ECG COMPLETE ECG ROUTINE ECG W/LEAST 12 LDS W/I&R Solo Carty MD [address] [place] [address] [facility] [place] [address] Referral IDStatusReasonStart DateExpiration DateVisits RequestedVisits [id number] Auto-Generated Referral / [facility] for referral (narrative)* Diagnostic Procedure Only (Routine) - ClosedSpecialtyDiagnoses / ProceduresReferred By ContactReferred To ContactMOLECULAR & FUNCTIONAL IMAGING Diagnoses Nausea Procedures NM GASTRIC EMPTYING SOLID [place]STRIC [place] [address] [place] [address] [facility] [address] [place] [phone] Referral IDStatusRyderStgoodell DateExpiration DateVisits RequestedVisits [id number] Auto-Generated Referral / * Outpatient Procedure (Routine) - ClosedSpecialtyDiagnoses / ProceduresReferred By ContactReferred To [facility] Diagnoses PUD (peptic ulcer disease) Procedures EGD DIAGNOSTIC ESOPHAGOGASTRODUODENOSCOPY [place] [address] [place] [address] [facility] [address] [place] [address] Referral IDStatusReasonStart DateExpiration DateVisits RequestedVisits [id number] Auto-Generated Referral / [facility] for referral (narrative)* Outpatient Procedure (Routine) - ClosedSpecialtyDiagnoses / ProceduresReferred By ContactReferred To [facility] Diagnoses PUD (peptic ulcer disease) Procedures EGD DIAGNOSTIC ESOPHAGOGASTRODUODENOSCOPY [place] [address] [place] [address] [address] Referral IDStatusReasonStart DateExpiration DateVisits RequestedVisits [id number] Auto-Generated Referral / * Outpatient Procedure (Routine) - ClosedSpecialtyDiagnoses / ProceduresReferred By ContactReferred To [facility] Diagnoses Bilious vomiting with nausea Right sided abdominal pain Procedures EGD DIAGNOSTIC ESOPHAGOGASTRODUODENOSCOPY [place] [address] [place] [address] [address] Referral IDStatusReasonStart DateExpiration DateVisits RequestedVisits [id number] Auto-Generated Referral / [facility] for referral (narrative)* Outpatient Procedure (Routine) - AuthorizedSpecialtyDiagnoses / ProceduresReferred By ContactReferred To [facility] Diagnoses BRBPR (bright red blood per rectum) Procedures COLONOSCOPY DIAGNOSTIC COLONOSCOPY FLX DX W/COLLJ SPEC WHEN PFRMD Iliana Mercado PA-C [address] [place] [address] [place] [phone] Referral IDStatusReasonStgoodell DateExpiration DateVisits RequestedVisits [id number] Auto-Generated Referral * Outpatient Procedure (Routine) - AuthorizedSpecialtyDiagnoses / Procedures Referred By ContactReferred To [facility] Diagnoses Elevated LFTs Procedures DDI VIBRATION CONTROLLED TRANSIENT ELASTOGRAPHY (VCTE) LIVER ELASTOGRAPHY W/O IMAG W/I&R Iliana Mercado PA-C [address] [place] [address] [place] [address] Referral IDStatusReasonStart DateExpiration DateVisits RequestedVisits [id number] Auto-Generated Referral [facility] for referral (narrative)* Outpatient Procedure (Routine) - Pending ReviewSpecialtyDiagnoses / ProceduresReferred By ContactReferred To [facility] Diagnoses ENGLISH (nonalcoholic steatohepatitis) Procedures LIVER BIOPSY NEEDLE BIOPSY LIVER NEEDLE PERCUTANEOUS Rosario Mcconnell I, MD [address] [place] [address] [address] Referral IDStatusReasonStgoodell DateExpiration DateVisits RequestedVisits [id number] Review Auto-Generated Referral [facility] for referral (narrative)* Outpatient Procedure (Routine) - ClosedSpecialtyDiagnoses / ProceduresReferred By ContactReferred To Contact [facility] Diagnoses BRBPR (bright red blood per rectum) Procedures COLONOSCOPY DIAGNOSTIC COLONOSCOPY FLX DX W/COLLJ SPEC WHEN PFRMD Iliana Mercado PA-C [address] [place] [address] [facility] [address] [place] [phone] Referral IDStatusReasonMelrose DateExpiration DateVisits RequestedVisits [id number] Auto-Generated Referral [facility] for visit NarrativePATIENT HERE AT THE REQUEST OF DR. HAGEN FOR ENGLISH & ABNORMAL US. ULTRASOUND AND LABS IN REFERRAL. PATIENT STATES SHE FEELS LETHARGIC & HAS OCCASIONAL ABDOMINAL PAINEpping [employer] Other [facility] Narrative* Diagnostic Procedure Only (Routine) - ClosedSpecialtyDiagnoses / ProceduresReferred By ContactReferred To ContactUS IMAGING Diagnoses Liver lesion Procedures US ABD RT UPPER QUADRANT US ABDOMINAL REAL [place] W/[place] [address] [place] [address] Us [facility] Referral IDStatusReasonStgoodell DateExpiration DateVisits RequestedVisits [id number] Auto-Generated Referral / [facility] for visit Narrative* Diagnostic Procedure Only (Routine) - ClosedSpecialtyDiagnoses / ProceduresReferred By ContactReferred To Contact [facility] Diagnoses Elevated LFTs Procedures US ABD RT UPPER QUADRANT US ABDOMINAL REAL TIME W/[place] [address] [place] [address] [place] [address] Referral IDStatusReasonStart DateExpiration DateVisits RequestedVisits [id number] Auto-Generated Referral / [facility] for visit Narrative* Diagnostic Procedure Only (Routine) - ClosedSpecialtyDiagnoses / ProceduresReferred By ContactReferred To Contact [facility]LEC[facility]AG[facility] Diagnoses Nausea Procedures NM GASTRIC EMPTYING SOLID GASTRIC EMPTYING STUDY Carol Winn MD [address] [place] [phone] [facility] [address] [place] [address] Referral IDStatusReasonMelrose DateExpiration DateVisits RequestedVisits [id number] Auto-Generated Referral / [facility] for visit Narrative* Outpatient Procedure (Routine) - ClosedSpecialtyDiagnoses / ProceduresReferred By ContactReferred To Contact [facility] Diagnoses PUD (peptic ulcer disease) Procedures EGD DIAGNOSTIC ESOPHAGOGASTRODUODENOSCOPY TRANSORAL DIAGNOSTIC [place] Winn [place] [address] [place] [address] [facility] [address] [place] [address] Referral IDStatusReasonStgoodell DateExpiration DateVisits RequestedVisits [id number] Auto-Generated Referral / [facility] for visit Narrative* Outpatient Procedure (Routine) - ClosedSpecialtyDiagnoses / ProceduresReferred By ContactReferred To Contact [facility] Diagnoses Bilious vomiting with nausea Right sided abdominal pain Procedures EGD DIAGNOSTIC ESOPHAGOGASTRODUODENOSCOPY [place] [address] [place] [address] [facility] [address] [place] [address] Referral IDStatusReasonStart DateExpiration DateVisits RequestedVisits [id number] Auto-Generated Referral [facility] for visit Narrative* Rehabilitation - Outpatient (Routine) - AuthorizedSpecialtyDiagnoses / ProceduresReferred By Contact Referred To ContactPhysical Therapy Diagnoses Cervical radiculopathy Procedures [place] OFFICE/OUTPATIENT NEW HIGH MDM 60 MINUTES Giovani Hagen MD [address] [address] Phone: tel: fax: Zhen Burgess, PT [address] [address] Phone: tel: fax: Referral IDStatusReasonStart DateExpiration DateVisits RequestedVisits [id number] Specialty Services Required [facility] HealthcareReason for visit Narrative* Rehabilitation - Outpatient (Routine) - AuthorizedSpecialtyDiagnoses / ProceduresReferred By ContactReferred To ContactPhysical Therapy Diagnoses Cervical radiculopathy Unspecified injury of right ankle, subsequent encounter Procedures [place] OFFICE/OUTPATIENT NEW [facility] 60 MINUTES Giovani Hagen MD 112 [facility] [address] [place] [address] Phone: tel: fax: Zhen Burgess, PT [address] [address] Phone: tel: fax: Referral IDStatusReasonStart DateExpiration DateVisits RequestedVisits [id number] Specialty Services Required [facility] HealthcareReason for visit Narrative* Outpatient Procedure (Routine) - ClosedSpecialtyDiagnoses / ProceduresReferred By ContactReferred To Contact [facility] Diagnoses Elevated LFTs Procedures DDI VIBRATION CONTROLLED TRANSIENT ELASTOGRAPHY (VCTE) LIVER ELASTOGRAPHY W/O IMAG W/I&R Iliana Mercado PA-C [address] [place] [address] [address] Referral IDStatusReasonStart DateExpiration DateVisits RequestedVisits [id number] Auto-Generated Referral / [facility] for visit Narrative* Outpatient Procedure (Routine) - ClosedSpecialtyDiagnoses / ProceduresReferred By ContactReferred To Contact [facility] Diagnoses BRBPR (bright red blood per rectum) Procedures COLONOSCOPY DIAGNOSTIC COLONOSCOPY FLX DX W/COLLJ SPEC WHEN PFRMD Iliana Mercado PA-C [address] [place] [address] [address] Referral IDStatusReasonStgoodell DateExpiration DateVisits RequestedVisits [id number] Auto-Generated Referral [facility] for visit Narrative* Diagnostic Procedure Only (Routine) - ClosedSpecialtyDiagnoses / ProceduresReferred By ContactReferred To Contact [facility] Diagnoses Other specified dyspareunia Pelvic pain in female Procedures PELVIC US WHI US PELVIC NONOBSTETRIC REAL-TIME IMAGE COMPLETE Javy Boudreaux MD [address] [address] Phone: tel: fax: [address] [address] Referral IDStatusasonStgoodell DateExpiration DateVisits RequestedVisits [id number] Auto-Generated Referral [facility] for visit Narrative* Diagnostic Procedure Only (Routine) - ClosedSpecialtyDiagnoses / ProceduresReferred By ContactReferred To Contact X[facility] IMAG[facility] Diagnoses Chronic idiopathic constipation Procedures XR ABDOMEN 2V ROUTINE SUPINE W UPRIGHT/DECUB/CTL RADIOLOGIC EXAM ABDOMEN 2 VIEWS Iliana Mercado PA-C [address] [place] [address] Phone: tel: fax: [place] [address] Referral IDStatusReasonStart DateExpiration DateVisits RequestedVisits [id number] Auto-Generated [facility] N[facility]* Diagnostic Procedure Only (Routine) - AuthorizedSpecialtyDiagnoses / ProceduresReferred By ContactReferred To ContactXR IMAGING Diagnoses Pelvic floor dysfunction Chronic constipation Procedures XR ABDOMEN 1V SUPINE RADIOLOGIC EXAM ABDOMEN 1 VIEW aMrio Harper, CHIEF TECHNICIAN X RAY.OXIDATION ENGINEER [address] [place] [address] Phone: tel: fax: [facility] [place] [address] Referral IDStatusReasonStart DateExpiration DateVisits RequestedVisits [id number] Auto-Generated Referral / [facility] Summary Purpose Family History Relationship Condition Age at Onset Recorded Date/T estiven mother Hypertension Unknown Family history of mental disorderUnknown Advance Directives Advance Directive Response Recorded Date/ [...] August 16, 2024 4:40pm Reason for Referral SpecialtyDiagnoses / ProceduresReferred By ContactReferred To ContactRadiology Diagnoses Cervical radiculopathy Procedures MR cervical spine wo contrast Giovani Hagen MD [address] [facility] [address] [place] [address] Referral IDStatusReasonStart DateExpiration DateVisits RequestedVisits [id number] Review/[id number] / ProceduresReferred By ContactReferred To Contact Diagnoses Attention deficit hyperactivity disorder (ADHD), predominantly inattentive type (CMS/HCC) Giovani Hagen MD [address] [place] [address] Referral IDStatusReasonStart DateExpiration DateVisits RequestedVisits [id number] / ProceduresReferred By Contact Referred To Contact Diagnoses Attention deficit hyperactivity disorder (ADHD), predominantly inattentive type (CMS/HCC) Giovani Hagen MD 112 [place] [address] Referral IDStatusReasonStart DateExpiration DateVisits RequestedVisits [id number] Review/[id number] / ProceduresReferred By ContactReferred To [facility] Diagnoses Syncope, unspecified syncope type Procedures CARDIOVASCULAR MEDICINE [place] [address] [place] [address] [place] [address] Referral IDStatusReasonStart DateExpiration DateVisits RequestedVisits [id number] Not Required PCP Requested Referral /[id number] / ProceduresReferred By ContactReferred To [facility] Diagnoses Syncope, unspecified syncope type Procedures STRESS ECHO TREADMILL ECHO TTHRC R-T 2D W/WO M-MODE COMPLETE REST&ST Solo Carty MD [address] [place] [address] [place] [address] Referral IDStatusReasonStart DateExpiration DateVisits RequestedVisits [id number] Auto-Generated Referral /[id number] / ProceduresReferred By ContactReferred To ContactCT IMAGING Diagnoses Bilious vomiting with nausea Right sided abdominal pain Nausea Procedures CT ABD/PEL WO IVCON CT ABD & P[place] [address] [place] [address] [place] [address] Referral IDStatusReasonStart DateExpiration DateVisits RequestedVisits [id number] Auto-Generated Referral / Additional Source Comments INFORMATION SOURCE (unrecogn ized section and content) DATE CREATED AUTHOR 11/09/2018 [facility] DATE CREATED AUTHOR AUTHOR'S ORGANIZ ATION 08/23/2021 [facility] [employer] DATE CREATED AUTHOR AUTHOR'S ORGANIZ ATION 07/17/2022 [facility] DATE CREATED AUTHOR AUTHOR'S ORGANIZ ATION 03/22/2023 [facility] DATE CREATED AUTHOR AUTHOR'S ORGANIZ ATION 03/28/2023 [facility] DATE CREATED AUTHOR AUTHOR'S ORGANIZ ATION 04/07/2024 [facility] DATE CREATED AUTHOR AUTHOR'S ORGANIZ ATION 04/12/2024 [facility] DATE CREATED AUTHOR AUTHOR'S ORGANIZ ATION 09/26/2024 [facility] DATE CREATED AUTHOR AUTHOR'S ORGANIZ ATION 01/03/2025 [facility] DATE CREATED AUTHOR AUTHOR'S ORGANIZ ATION 01/16/2025 [facility] DATE CREATED AUTHOR AUTHOR'S ORGANIZ ATION 02/14/2025 [facility] DATE CREATED AUTHOR AUTHOR'S ORGANIZ ATION 02/18/2025 [facility] DATE CREATED AUTHOR AUTHOR'S ORGANIZ ATION 02/26/2025 [facility] Care Teams (unrecognized sec tion and content) Team Status: Active Member Role Status Dates Giovani Hagen MD Primary Care Provider Active Team Status: Inactive Member Role Status Dates Erwin Hylton MD Attending Provider Active Klaus Harmon Care ProviderActiveTeam MemberRelationshipSpecialty Start DateEnd Date Jackson, Rugen Mabalay [address] [address] [place] [address] PCP - GeneralFamily Ekmkblmr68/4/19Team MemberRelationshipSpecialtyStart DateEnd Date Niko Hagenen Mabalay [address] [place] [address] PCP - GeneralFamily Psydolqn95/4/19Team MemberRelationshipSpecialtyStart DateEnd Date Niko Hagenen Mabalay [address] [place] [address] PCP - GeneralFamily Sylcarev59/4/19Team MemberRelationshipSpecialtyStart DateEnd Date Niko Hagenen Mabalay [address] [place] [address] PCP - GeneralFami Wzpghvyf55/4/19Team MemberRelationshipSpecialtyStart DateEnd Date Hieu Rugen Mabalay [address] [place] [address] PCP - GeneralFamily Wswydkex03/4/19Team MemberRelationshipSpecialtyStart DateEnd Date Niko Hagenen Mabalay [address] [place] [address] PCP - GeneralFamily Ffegsprg07/4/19Team MemberRelationshipSpecialtyStart DateEnd Date Niko Hagenen Mabalay [address] [place] [address] PCP - GeneralFamily Ulrxxqxi54/4/19Team MemberRelationshipSpecialtyStart DateEnd Date Jackson, Rugen Mabalay [address] [place] [address] PCP - GeneralFamily Rmgfsddo20/4/19Team MemberRelationshipSpecialtyStart DateEnd Date Giovani Hagen [address] [place] [address] PCP - GeneralFamily Zdsldvbe31/4/19Team MemberRelationshipSpecialtyStart DateEnd Date Giovani Hagen [address] [place] [address] PCP - GeneralFamily Cazotwdr65/4/19Team MemberRelationshipSpecialtyStart DateEnd Date Hieu Giovani Rust [address] [place] [address] PCP - GeneralFamily Wcwpsixa35/4/19Team MemberRelationshipSpecialtyStart DateEnd Date Giovani Hagen [address] [place] [address] PCP - GeneralFamily Aogrtnyi20/4/19Team MemberRelationshipSpecialtyStart DateEnd Date Giovani Hagen [address] [place] [address] PCP - GeneralFamily Trekjrar47/4/19Team MemberRelationshipSpecialtyStart DateEnd Date Giovani Hagen [address] [place] [address] PCP - GeneralFamily Dmnphyxv90/4/19Team MemberRelationshipSpecialtyStart DateEnd Date Giovani Hagen MD [address] [place] [address] PCP - GeneralFamily Mlunflff88/4/19Team MemberRelationshipSpecialtyStart DateEnd Date Giovani Hagen MD [address] [place] [address] PCP - GeneralFamily Kxkltjil28/4/19Team MemberRelationshipSpecialtyStart DateEnd Date Giovani Hagen MD [address] [place] [address] PCP - GeneralFamily Kpfhmrei78/4/19Team MemberRelationshipSpecialtyStart DateEnd Date Giovani Hagen MD [address] [place] [address] PCP - GeneralFamily Etgyvlzv90/4/19Team MemberRelationshipSpecialtyStart DateEnd Date Giovani Hagen MD [address] [place] [address] PCP - GeneralFamily Zmcpihot99/4/19Team MemberRelationshipSpecialtyStart DateEnd Date Giovani Hagen MD [address] [place] [address] PCP - GeneralFamily Fzqwjlcg22/4/19Team MemberRelationshipSpecialtyStart DateEnd Date Giovani Hagen MD [address] [place] [address] PCP - GeneralFamily Gheygzsq62/4/19Team MemberRelationshipSpecialtyStart DateEnd Date Giovani Hagen MD [address] [place] [address] PCP - GeneralFamily Ghbjidyo03/4/19Team MemberRelationshipSpecialtyStart DateEnd Date Giovani Hagen MD [address] [place] [address] PCP - GeneralFamily Linvgnkd81/4/19Team MemberRelationshipSpecialtyStart DateEnd Date Giovani Hagen MD [address] [place] [address] PCP - GeneralFamily Znfhfjao89/4/19Team MemberRelationshipSpecialtyStart DateEnd Date Giovani Hagen MD [address] [place] [address] PCP - GeneralFami Dzbnzips37/4/19Team MemberRelationshipSpecialtyStart DateEnd Date Giovani Hagen MD [address] [place] [address] PCP - GeneralFamily Tngiklsx72/4/19Team MemberRelationshipSpecialtyStart DateEnd Date Giovani Hagen MD [address] [place] [address] PCP - GeneralFamily Rpwtdxlt89/4/19Team MemberRelationshipSpecialtyStart DateEnd Date Giovani Hagen MD [address] [place] [address] PCP - [facility]10/23/1911 Giovani Hagen MD [address] [place] [address] PCP - GeneralFamily Medicine08/30/22Team MemberRelationshipSpecialtyStart DateEnd Date Giovani Hagen MD [address] [place] [address] [facility]10/23/1911 Giovani Hagen MD [address] [place] [address] PCP - [facility]08/30/22 MemberRelationshipSpecialtyStart DateEnd Date Giovani Hagen MD [address] [place] [address] [facility]10/23/1911 Giovani Hagen MD [address] [place] [address] [facility]08/30/22 MemberRelationshipSpecialtyStart DateEnd Date Giovani Hagen MD [address] [place] [address] [facility]10/23/1911 Giovani Hagen MD [address] [place] [address] [facility]08/30/22 MemberRelationshipSpecialtyStart DateEnd Date Giovani Hagen MD [address] [place] [address] [facility]10/23/1911 Giovani Hagen MD [address] [place] [address] [facility] Medicine08/30/22 MemberRelationshipSpecialtyStart DateEnd Date Giovani Hagen MD [address] [place] [address] PCP - [facility]10/23/1911 Giovani Hagen MD [address] [place] [address] PCP - [facility]08/30/22 MemberRelationshipSpecialtyStart DateEnd Date Giovani Hagen MD [address] [place] [address] PCP - [facility]10/23/1911 Giovani Hagen MD [address] [place] [address] PCP - [facility]08/30/22 MemberRelationshipSpecialtyStart DateEnd Date Giovani Hagen MD [address] [place] [address] PCP - [facility]10/23/1911 Giovani Hagen MD [address] [place] [address] PCP - [facility]08/30/22 MemberRelationshipSpecialtyStart DateEnd Date Giovani Hagen MD [address] [place] [address] PCP - [facility]10/23/1911 Giovani Hagen MD [address] [place] [address] PCP - [facility] Medicine08/30/22 MemberRelationshipSpecialtyStart DateEnd Giovani Hagen MD [address] [place] [address] PCP - [facility]10/23/1911 Giovani Hagen MD [address] [place] [address] PCP - [facility]08/30/22 MemberRelationshipSpecialtyStart DateEnd Giovani Hagen MD [address] [place] [address] PCP - [facility]10/23/1911 Giovani Hagen MD [address] [place] [address] PCP - [facility]08/30/22 MemberRelationshipSpecialtyStart DateEnd Giovani Hagen MD [address] [place] [address] PCP - [facility]10/23/1911 Giovani Hagen MD [address] [place] [address] PCP - [facility]08/30/22 MemberRelationshipSpecialtyStart DateEnd Date Giovani Hagen MD [address] [place] [address] PCP - [facility]10/23/1911 Giovani Hagen MD [address] [place] [address] PCP - [facility]08/30/22Te MemberRelationshipSpecialtyStart DateEnd Date Giovani Hagen MD [address] [place] [address] PCP - [facility]10/23/1911 Giovani Hagen MD [address] [place] [address] PCP - [facility]08/30/22 MemberRelationshipSpecialtyStart DateEnd Date Giovani Hagen MD [address] [place] [address] PCP - [facility]10/23/1911 Giovani Hagen MD [address] [place] [address] PCP - [facility]08/30/22 MemberRelationshipSpecialtyStart DateEnd Date Giovani Hagen MD [address] [place] [address] PCP - [facility]10/23/1911 Giovani Hagen MD [address] [place] [address] PCP - [facility]08/30/22 MemberRelationshipSpecialtyStart DateEnd Date Giovani Hagen MD [address] [place] [address] PCP - [facility]10/23/1911 Giovani Hagen MD [address] [place] [address] PCP - [facility] Medicine08/30/22 MemberRelationshipSpecialtyStart DateEnd Date Giovani Hagen MD [address] [place] [address] PCP - [facility]10/23/1911 Giovani Hagen MD [address] [place] [address] PCP - [facility]08/30/22 MemberRelationshipSpecialtyStart DateEnd Date Giovani Hagen MD [address] [place] [address] PCP - [facility]10/23/1911 Giovani Hagen MD [address] [place] [address] PCP - [facility]08/30/22 MemberRelationshipSpecialtyStart DateEnd Date Giovani Hagen MD [address] [place] [address] PCP - [facility]10/23/1911 Giovani Hagen MD [address] [place] [address] PCP - [facility]08/30/22 MemberRelationshipSpecialtyStart DateEnd Date Giovani Hagen MD [address] [place] [address] [facility] - [facility]10/23/1911 Giovani Hagen MD [address] [place] [address] [facility]08/30/22 MemberRelationshipSpecialtyStart DateEnd Date Giovani Hagen MD [address] [place] [address] [facility]10/23/1911 Giovani Hagen MD [address] [facility] [address] [place] [address] [facility]08/30/22 MemberRelationshipSpecialtyStart DateEnd Date Giovani Hagen MD [address] [place] [address] [facility]10/23/1911 Giovani Hagen MD [address] [place] [address] [facility]08/30/22 MemberRelationshipSpecialtyStart DateEnd Date Giovani Hagen MD [address] [place] [address] [facility]10/23/1911 Giovani Hagen MD [address] [place] [address] PCP - GeneralFamily Medicine08/30/22Team MemberRelationshipSpecialtyStart DateEnd Date Giovani Hagen MD [address] [place] [address] PCP - Generalmily Vxkkrmvj11/4/19Team MemberRelationshipSpecialtyStart DateEnd Date Giovani Hagen MD [address] [place] [address] PCP - [facility]10/23/1911 Giovani Hagen MD [address] [place] [address] [facility]/22Team MemberRelationshipSpecialtyStart DateEnd Date Giovani Hagen MD [address] [place] [address] PCP - Generalmily Hxngonhn54/4/19 Deena Lyn CNP [address] [place] [address] [facility] Knhxzatt91/11/24Team MemberRelationshipSpecialtyStart DateEnd Date Giovani Hagen MD [address] [place] [address] PCP - Generalmily Yvveygdv60/4/19 Deena Lyn, ISABEL [address] [place] [address] Referringmi Tggbdqnt66/11/24Team MemberRelationshipSpecialtyStart DateEnd Date Giovani Hagen MD [address] [place] [address] PCP - [facility]10/23/1911 Giovani Hagen MD [address] [place] [address] PCP - [facility]08/30/22 MemberRelationshipSpecialtyStart DateEnd Date Giovani Hagen MD [address] [place] [address] [facility] - [facility]10/23/1911 Giovani Hagen MD [address] [place] [address] [facility] - [facility]08/30/22 MemberRelationshipSpecialtyStart DateEnd Date Giovani Hagen MD [address] [place] [address] [facility]10/23/1911 Giovani Hagen MD [address] [place] [address] [facility]08/30/22 MemberRelationshipSpecialtyStart DateEnd Date Giovani Hagen MD [address] [place] [address] [facility]10/23/1911 Giovani Hagen MD [address] [place] [address] PCP [facility]08/30/22Te MemberRelationshipSpecialtyStart DateEnd Date Giovani Hagen MD [address] [place] [address] PCP - [facility]10/23/1911 Giovani Hagen MD [address] [place] [address] PCP - [facility]08/30/22 MemberRelationshipSpecialtyStart DateEnd Date Giovani Hagen MD [address] [place] [address] PCP - [facility]10/23/1911 Giovani Hagen MD [address] [place] [address] PCP - [facility]08/30/22 MemberRelationshipSpecialtyStart DateEnd Date Giovani Hagen MD [address] [place] [address] PCP - [facility]10/23/1911 Giovani Hagen MD [address] [place] [address] PCP - [facility]08/30/22 MemberRelationshipSpecialtyStart DateEnd Date Giovani Hagen MD [address] [place] [address] PCP - [facility]03/27/19 Deena Lyn, ISABEL [address] [place] [address] [facility]04/03/24Team MemberRelationshipSpecialtyStart DateEnd Date Giovani Hagen MD [address] [place] [address] PCP - [facility]10/23/1911 Giovani Hagen MD [address] [place] [address] PCP - [facility] Medicine08/30/22 MemberRelationshipSpecialtyStart DateEnd Giovani Hagen MD [address] [place] [address] PCP - [facility]10/23/1911 Giovani Hagen MD [address] [place] [address] PCP - [facility]08/30/22 MemberRelationshipSpecialtyStart DateEnd Date Giovani Hagen MD [address] [place] [address] PCP - [facility]10/23/1911 Giovani Hagen MD [address] [place] [address] PCP - [facility] Medicine08/30/22am MemberRelationshipSpecialtyStart DateEnd Date Giovani Hagen MD [address] [place] [address] PCP - [facility] Iwqofrhm13/4/19 Deena Lyn, ISABEL [address] [place] [address] [facility]04/03/24Team MemberRelationshipSpecialtyStart DateEnd Date Giovani Hagen MD [address] [place] [address] PCP - [facility]03/27/19 Deena Lyn OXIDATION ENGINEER [address] [place] [address] [facility]04/03/24Team MemberRelationshipSpecialtyStart DateEnd Date Giovani Hagen MD [address] [place] [address] PCP - [facility]03/27/19 Deena Lyn, ISABEL [address] [place] [address] [facility]04/03/24Team MemberRelationshipSpecialtyStart DateEnd Date Giovani Hagen MD [address] [place] [address] PCP - Medical [facility]10/23/1911 Giovani Hagen MD [address] [place] [address] PCP - [facility]08/30/22Te MemberRelationshipSpecialtyStart DateEnd Date Giovani Hagen MD [address] [place] [address] PCP - [facility]10/23/1911 Giovani Hagen MD [address] [place] [address] PCP - [facility] Medicine08/30/22Team MemberRelationshipSpecialtyStart DateEnd Date Giovani Hagen MD [address] [place] [address] PCP - [facility] Cruvdcfl87/4/19 Deena Lyn CNP [address] [place] [address] [facility] Axsfrgja11/11/24Team MemberRelationshipSpecialtyStart DateEnd Date Giovani Hagen MD [address] [place] [address] PCP - [facility]03/27/19 Deena Lyn CNP [address] [place] [address] [facility]04/03/24Team MemberRelationshipSpecialtyStart DateEnd Date Giovani Hagen MD [address] [place] [address] PCP - [facility]10/23/1911 Giovani Hagen MD [address] [place] [address] PCP - [facility]08/30/22Team MemberRelationshipSpecialtyStart DateEnd Date Giovani Hagen MD [address] [place] [address] PCP - [facility]10/23/1911 Giovani Hagen MD [address] [place] [address] PCP - [facility] Medicine08/30/22am MemberRelationshipSpecialtyStart DateEnd Date Giovani Hagen MD [address] [place] [address] PCP - [facility] Uvyltwuy08/4/19 Deena Lyn CNP [address] [place] [address] [facility]04/03/24Team MemberRelationshipSpecialtyStart DateEnd Date Giovani Hagen MD [address] [place] [address] PCP - [facility]10/23/1911 Giovani Hagen MD [address] [place] [address] PCP - [facility]08/30/22Team MemberRelationshipSpecialtyStart DateEnd Date Giovani Hagen MD [address] [place] [address] PCP - [facility]10/23/1911 Giovani Hagen MD [address] [place] [address] PCP - [facility] Medicine08/30/22Team MemberRelationshipSpecialtyStart DateEnd Date Giovani Hagen MD [address] [place] [address] PCP - [facility]03/27/19 Deena Lyn, ISABEL [address] [place] [address] [facility]04/03/24Team MemberRelationshipSpecialtyStart DateEnd Date Giovani Hagen MD [address] [place] [address] PCP - [facility]03/27/19 Deena Lyn, OXIDATION ENGINEER [address] [place] [address] [facility]04/03/24Team MemberRelationshipSpecialtyStart DateEnd Date Giovani Hagen MD [address] [place] [address] PCP - [facility]10/23/1911 Giovani Hagen MD [address] [place] [address] PCP - [facility]08/30/22Team MemberRelationshipSpecialtyStart DateEnd Date Giovani Hagen MD [address] [place] [address] PCP - [facility]10/23/1911 Giovani Hagen MD [address] [place] [address] PCP - [facility]08/30/22 MemberRelationshipSpecialtyStart DateEnd Date Giovani Hagen MD [address] [place] [address] PCP - [facility]10/23/1911 Giovani Hagen MD [address] [place] [address] PCP - [facility]08/30/22 MemberRelationshipSpecialtyStart DateEnd Date Giovani Hagen MD [address] [place] [address] PCP - [facility]10/23/1911 Giovani Hagen MD [address] [place] [address] PCP - [facility]08/30/22 MemberRelationshipSpecialtyStart DateEnd Date Giovani Hagen MD [address] [place] [address] PCP - [facility]10/23/1911 Giovani Hagen MD [address] [place] [address] PCP - [facility]08/30/22 MemberRelationshipSpecialtyStart DateEnd Date Giovani Hagen MD [address] [place] [address] PCP - [facility]10/23/1911 Giovani Hagen MD [address] [place] [address] PCP - [facility]08/30/22Team MemberRelationshipSpecialtyStart DateEnd Giovani Hagen MD [address] [place] [address] PCP - [facility]10/23/1911 Giovani Hagen MD [address] [place] [address] PCP - [facility]08/30/22Team MemberRelationshipSpecialtyStart DateEnd Giovani Hagen MD [address] [place] [address] PCP - [facility]10/23/1911 Giovani Hagen MD [address] [facility] [address] [place] [address] PCP - [facility] Medicine08/30/22am MemberRelationshipSpecialtyStart DateEnd Date Giovani Hagen MD [address] [facility] [address] [place] [address] PCP - Generalmily Rwxyeuuy11/4/19 Deena Lyn, OXIDATION ENGINEER [address] [facility] [address] [place] [address] Referringmily Msxddegm22/11/24 Darwin Starr DO [address] [place] [address] [place] [address] ReferringOb/Gyn07/02/24Team MemberRelationshipSpecialtyStart DateEnd Date Giovani Hagen MD [address] [place] [address] PCP - [facility] Dpjgwsen90/4/19 Deena Lyn, ISABEL [address] [place] [address] [facility] Cggixwyu22/11/24 Darwin Starr DO [address] [place] [address] [place] [address] ReferringOb/Gyn07/02/24Te MemberRelationshipSpecialtyStart DateEnd Date Giovani Hagen MD [address] [place] [address] PCP - [facility]10/23/1911 Giovani Hagen MD [address] [place] [address] PCP - [facility] Medicine08/30/22Team MemberRelationshipSpecialtyStart DateEnd Date Giovani Hagen MD [address] [place] [address] PCP - [facility]10/23/1911 Giovani Hagen MD [address] [place] [address] PCP - [facility] Medicine08/30/22Team MemberRelationshipSpecialtyStart DateEnd Date Giovani Hagen MD [address] [place] [address] PCP - [facility]10/23/1911 Giovani Hagen MD [address] [place] [address] PCP - [facility]08/30/22Team MemberRelationshipSpecialtyStart DateEnd Date Giovani Hagen MD [address] [place] [address] PCP - [facility]10/23/1911 Giovani Hagen MD [address] [place] [address] PCP - [facility]08/30/22Team MemberRelationshipSpecialtyStart DateEnd Date Giovani Hagen MD [address] [place] [address] PCP - [facility]10/23/1911 Giovani Hagen MD [address] [place] [address] PCP - [facility]08/30/22 Team Status: Inactive Member Role Status Dates Giovani Hagen MD Primary Care Provider Active S tart: August 16, 2024 End: August 19bdRyne Hernandez Provider, Attending ProviderActiveStart: August 16, 2024 End: August 19, 2024 Team Status: Active Member Role Status Dates Giovani Hagen MD Primary Care Provider Active S tart: August 17, 2024 Ryne Worthington Provider, Attending Provider, Other Provider ActiveStart: August 17, 2024 Team MemberRelationshipSpecialtyStart DateEnd Date Giovani Hagen MD [address] [place] [address] PCP - [facility]10/23/1911 Giovani Hagen MD [address] [place] [address] PCP - GeneralFamily Medicine08/30/22Team MemberRelationshipSpecialtyStart DateEnd Date Giovani Hagen MD [address] [place] [address] PCP - [facility]10/23/1911 Giovani Hagen MD [address] [place] [address] PCP - GeneralFamily Medicine08/30/22Team MemberRelationshipSpecialtyStart DateEnd Date Giovani Hagen MD [address] [place] [address] PCP - GeneralFamily Easqqzix43/4/19 Deena Lyn, ISABEL [address] [place] [address] ReferringFamily Mtkmpvgx16/11/24 Darwin Starr DO [address] [place] [address] [place] [address] ReferringOb/Gyn07/02/24Team MemberRelationshipSpecialtyStart DateEnd Date Giovani Hagen MD [address] [place] [address] PCP - [facility]10/23/1911 Giovani Hagen MD [address] [place] [address] PCP - [facility] Medicine08/30/22 MemberRelationshipSpecialtyStart DateEnd Giovani Hagen MD [address] [place] [address] PCP - Medical [facility]10/23/1911 Giovani Hagen MD [address] [place] [address] PCP - [facility]08/30/22 MemberRelationshipSpecialtyStart DateEnd Giovani Hagen MD [address] [place] [address] PCP - [facility]10/23/1911 Giovani Hagen MD [address] [place] [address] PCP - [facility]08/30/22 MemberRelationshipSpecialtyStart DateEnd Date Giovani Hagen MD [address] [place] [address] PCP - [facility]10/23/1911 Giovani Hagen MD [address] [place] [address] PCP - [facility]08/30/22 MemberRelationshipSpecialtyStart DateEnd Date Giovani Hagen MD [address] [place] [address] PCP - Generalmily Qrgvajzd39/4/19 Deena Lyn, ISABEL [address] [place] [address] ReferringFamily Aavwvbao38/11/24 Darwin Starr DO [address] [place] [address] Dr Carlyle Manc[place], [place] [id number] ReferringOb/Gyn07/02/24Team MemberRelationshipSpecialtyStart DateEnd Date Giovani Hagen MD [address] [facility] [address] [place] [address] PCP - [facility]10/23/1911 Giovani Hagen MD [address] [facility] [address] [place] [address] PCP - [facility] Medicine08/30/22Team MemberRelationshipSpecialtyStart DateEnd Date Giovani Hagen MD [address] [facility] [address] [place] [address] PCP - [facility]10/23/1911 Giovani Hagen MD [address] [place] [address] [facility]/22Team MemberRelationshipSpecialtyStart DateEnd Date Giovani Hagen MD [address] [place] [address] [facility] - [facility] Mpapmppq40/4/19 Deena Lyn, ISABEL [address] [place] [address] ReferringFamily Higbvglw72/11/24 Darwin Starr DO [address] [place] [address] Dr Tadeo Quiana [place], [place] [address] ReferringOb/Gyn07/02/24Team MemberRelationshipSpecialtyStart DateEnd Date Giovani Hagen MD [address] [facility] [address] [place] [address] PCP - [facility]10/23/1911 Giovani Hagen MD [address] [facility] [address] [place] [address] PCP - [facility]08/30/22Team MemberRelationshipSpecialtyStart DateEnd Date Giovani Hagen MD [address] [facility] [address] [place] [address] PCP - [facility]10/23/1911 Giovani Hagen MD [address] [facility] [address] [place] [address] PCP - GeneralFamily Medicine08/30/22Team MemberRelationshipSpecialtyStart DateEnd Date Giovani Hagen MD [address] [facility] [address] [place] [address] PCP - [facility]10/23/1911 Giovani Hagen MD [address] [facility] [address] [place] [address] PCP - GeneralFamily Medicine08/30/22Team MemberRelationshipSpecialtyStart DateEnd Date Giovani Hagen MD [address] [address] [place] [address] PCP - GeneralFamily Nadmzhjl55/4/19 Deena Lyn CNP [address] [place] [address] ReferringFamily Jpredsyk64/11/24 Darwin Starr DO [address] [place] [address] [place] [address] ReferringOb/Gyn07/02/24Team MemberRelationshipSpecialtyStart DateEnd Date Giovani Hagen MD [address] [place] [address] PCP - [facility]10/23/1911 Giovani Hagen MD [address] [place] [address] PCP - [facility]08/30/22Team MemberRelationshipSpecialtyStart DateEnd Date Giovani Hagen MD [address] [place] [address] PCP - [facility]10/23/1911 Giovani Hagen MD [address] [place] [address] [facility] - [facility]08/30/22Team MemberRelationshipSpecialtyStart DateEnd Date Giovani Hagen MD [address] [place] [address] PCP - GeneralFamily Unbzmqmw65/4/19 Deena Lyn, OXIDATION ENGINEER [address] [place] [address] ReferringFamily Ztwesgpe98/11/24 Darwin Starr DO [address] [place] [address] ReferringOb/Gyn07/02/24Team MemberRelationshipSpecialtyStart DateEnd Date Giovani Hagen MD [address] [place] [address] PCP - GeneralFamily Ctchtdzs84/4/19 Deena Lyn, OXIDATION ENGINEER [address] [facility] [address] [place] [address] Referringmily Zzifcxpe73/11/24 Darwin Starr DO [address] [place] [address] ReferringOb/Gyn07/02/24Team MemberRelationshipSpecialtyStart DateEnd Date Giovani Hagen MD [address] [place] [address] PCP - [facility]10/23/1911 Giovani Hagen MD [address] [place] [address] PCP - GeneralFamily Medicine08/30/22Te MemberRelationshipSpecialtyStart DateEnd Date Giovani Hagen MD [address] [place] [address] PCP - GeneralFamily Mcwufwcg91/4/19 Deena Lyn, OXIDATION ENGINEER [address] [place] [address] [facility] Kxapezxs34/11/24 Darwin Starr DO [address] [place] [address] ReferringOb/Gyn07/02/24Team MemberRelationshipSpecialtyStart DateEnd Date Giovani Hagen MD [address] [facility] [address] [place] [address] PCP - [facility] Jycqqfac19/4/19 Deena Lyn, OXIDATION ENGINEER [address] [facility] [address] [place] [address] [facility]erring[facility] Sxynpaee96/11/24 Darwin Starr DO [address] [place] [address] ReferringOb/Gyn07/02/24Team MemberRelationshipSpecialtyStart DateEnd Date Giovani Hagen MD [address] [facility] [address] [place] [address] PCP - [facility]10/23/1911 Giovani Hagen MD [address] [place] [address] PCP - Generalmily Medicine08/30/22Te MemberRelationshipSpecialtyStart DateEnd Date Giovani Hagen MD [address] [place] [address] PCP - [facility]10/23/1911 Giovani Hagen MD [address] [place] [address] PCP - [facility]08/30/22 MemberRelationshipSpecialtyStart DateEnd Date Giovani Hagen MD [address] [place] [address] PCP - [facility] Commercial10/23/1911 Giovani Hagen MD [address] [place] [address] PCP - [facility]08/30/22 MemberRelationshipSpecialtyStart DateEnd Date Giovani Hagen MD [address] [place] [address] PCP - [facility] Commercial10/23/1911 Giovani Hagen MD [address] [place] [address] PCP - [facility]08/30/22 MemberRelationshipSpecialtyStart DateEnd Date Giovani Hagen MD [address] [place] [address] PCP - [facility]10/23/1911 Giovani Hagen MD [address] [place] [address] PCP - [facility]08/30/22 MemberRelationshipSpecialtyStart DateEnd Date Giovani Hagen MD [address] [place] [address] PCP - [facility]10/23/1911 Giovani Hagen MD [address] [place] [address] PCP - [facility] Medicine08/30/22 MemberRelationshipSpecialtyStart DateEnd Date Giovani Hagen MD [address] [place] [address] PCP - Medical [facility]10/23/1911 Giovani Hagen MD [address] [place] [address] PCP - [facility]08/30/22 MemberRelationshipSpecialtyStart DateEnd Date Giovani Hagen MD [address] [place] [address] PCP - Medical [facility]10/23/1911 Giovani Hagen MD [address] [place] [address] PCP - [facility]08/30/22 MemberRelationshipSpecialtyStart DateEnd Date Giovani Hagen MD [address] [place] [address] PCP - Medical [facility]10/23/1911 Giovani Hagen MD [address] [place] [address] PCP - [facility]5/9/23Team MemberRelationshipSpecialtyStart DateEnd Date Giovani Hagen MD [address] [place] [address] PCP - [facility]10/23/1911 Giovani Hagen MD [address] [place] [address] [facility]08/30/22Team MemberRelationshipSpecialtyStart DateEnd Date Giovani Hagen MD [address] [facility] [address] [place] [address] PCP - [facility]03/27/19 Deena Lyn APRN [address] [facility] [address] [place] [address] [facility]erring[facility] Epqceztr62/11/24 Darwin Starr DO [address] [place] [address] Dr [address], [place] [id number] ReferringOb/Gyn07/02/24Team MemberRelationshipSpecialtyStart DateEnd Date Giovani Hagen MD [address] [facility] [address] [place] [address] PCP - [facility]10/23/1911 Giovani Hagen MD [address] [facility] [address] [place] [address] PCP - [facility] Medicine08/30/22Team MemberRelationshipSpecialtyStart DateEnd Date Giovani Hagen MD [address] [facility] [address] [place] [address] [facility] - [facility] Giwxzhrl92/4/19 Deena Lyn APRN [address] [place] [address] ReferringFamily [id number]/11/24 Darwin Starr DO [address] [place] [address] [place] [address] ReferringOb/Gyn07/02/24Team MemberRelationshipSpecialtyStart DateEnd Date Giovani Hagen MD [address] [facility] [address] [place] [address] PCP - [facility]10/23/1911 Giovani Hagen MD [address] [facility] [address] [place] [address] PCP - [facility] Medicine08/30/22Team MemberRelationshipSpecialtyStart DateEnd Date Giovani Hagen MD [address] [facility] [address] [place] [address] PCP - [facility]10/23/1911 Giovani Hagen MD [address] [place] [address] PCP - [facility] Medicine08/30/22Team MemberRelationshipSpecialtyStart DateEnd Date Giovani Hagen MD [address] [place] [address] PCP - [facility]10/23/1911 Giovani Hagen MD [address] [place] [address] PCP - [facility] Medicine08/30/22 MemberRelationshipSpecialtyStart DateEnd Giovani Hagen MD [address] [place] [address] PCP - [facility]10/23/1911 Giovani Hagen MD [address] [place] [address] PCP - [facility] Medicine08/30/22 MemberRelationshipSpecialtyStart DateEnd Giovani Hagen MD [address] [place] [address] PCP - [facility]10/23/1911 Giovani Hagen MD [address] [place] [address] PCP - [facility] Medicine08/30/22 MemberRelationshipSpecialtyStart DateEnd Date Giovani Hagen MD [address] [place] [address] PCP - [facility]10/23/1911 Giovani Hagen MD [address] [place] [address] PCP - [facility] Medicine08/30/22 MemberRelationshipSpecialtyStart DateEnd Date Giovani Hagen MD [address] [place] [address] PCP - [facility]10/23/1911 Giovani Hagen MD [address] [place] [address] [facility]/30/22Team MemberRelationshipSpecialtyStart DateEnd Date Giovani Hagen MD [address] [place] [address] PCP - [facility]/ Giovani Hagen MD [address] [place] [address] PCP - [facility]08/30/22 Source Comments (unrecognize d section and content) In the event this informatio n is protected by the Federal Confidentiality of Alcohol and Drug Abuse Patient Records regulations: The Federal rules restrict any use of the information to criminally investigate or prosecute any alcohol or drug abuse patient.[facility] CenterIn the event this information is protected by the Federal Confidentiality of Alcohol and Drug Abuse Patient Records regulations: The Federal rules restrict any use of the information to criminally investigate or prosecute any alcohol or drug abuse patient.[facility] CenterIn the event this information is protected by the Federal Confidentiality of Alcohol and Drug Abuse Patient Records regulations: The Federal rules restrict any use of the information to criminally investigate or prosecute any alcohol or drug abuse patient.[facility] CenterIn the event this information is protected by the Federal Confidentiality of Alcohol and Drug Abuse Patient Records regulations: The Federal rules restrict any use of the information to criminally investigate or prosecute any alcohol or drug abuse patient.[facility] CenterIn the event this information is protected by the Federal Confidentiality of Alcohol and Drug Abuse Patient Records regulations: The Federal rules restrict any use of the information to criminally investigate or prosecute any alcohol or drug abuse patient.[facility] CenterIn the event this information is protected by the Federal Confidentiality of Alcohol and Drug Abuse Patient Records regulations: The Federal rules restrict any use of the information to criminally investigate or prosecute any alcohol or drug abuse patient.[facility] CenterIn the event this information is protected by the Federal Confidentiality of Alcohol and Drug Abuse Patient Records regulations: The Federal rules restrict any use of the information to criminally investigate or prosecute any alcohol or drug abuse patient.[facility] CenterIn the event this information is protected by the Federal Confidentiality of Alcohol and Drug Abuse Patient Records regulations: The Federal rules restrict any use of the information to criminally investigate or prosecute any alcohol or drug abuse patient.[facility] CenterIn the event this information is protected by the Federal Confidentiality of Alcohol and Drug Abuse Patient Records regulations: The Federal rules restrict any use of the information to criminally investigate or prosecute any alcohol or drug abuse patient.[facility] CenterIn the event this information is protected by the Federal Confidentiality of Alcohol and Drug Abuse Patient Records regulations: The Federal rules restrict any use of the information to criminally investigate or prosecute any alcohol or drug abuse patient.[facility] CenterIn the event this information is protected by the Federal Confidentiality of Alcohol and Drug Abuse Patient Records regulations: The Federal rules restrict any use of the information to criminally investigate or prosecute any alcohol or drug abuse patient.[facility] CenterIn the event this information is protected by the Federal Confidentiality of Alcohol and Drug Abuse Patient Records regulations: The Federal rules restrict any use of the information to criminally investigate or prosecute any alcohol or drug abuse patient.[facility] CenterIn the event this information is protected by the Federal Confidentiality of Alcohol and Drug Abuse Patient Records regulations: The Federal rules restrict any use of the information to criminally investigate or prosecute any alcohol or drug abuse patient.[facility] CenterIn the event this information is protected by the Federal Confidentiality of Alcohol and Drug Abuse Patient Records regulations: The Federal rules restrict any use of the information to criminally investigate or prosecute any alcohol or drug abuse patient.[facility] CenterIn the event this information is protected by the Federal Confidentiality of Alcohol and Drug Abuse Patient Records regulations: The Federal rules restrict any use of the information to criminally investigate or prosecute any alcohol or drug abuse patient.[facility] CenterIn the event this information is protected by the Federal Confidentiality of Alcohol and Drug Abuse Patient Records regulations: The Federal rules restrict any use of the information to criminally investigate or prosecute any alcohol or drug abuse patient.[facility] CenterIn the event this information is protected by the Federal Confidentiality of Alcohol and Drug Abuse Patient Records regulations: The Federal rules restrict any use of the information to criminally investigate or prosecute any alcohol or drug abuse patient.[facility] CenterIn the event this information is protected by the Federal Confidentiality of Alcohol and Drug Abuse Patient Records regulations: The Federal rules restrict any use of the information to criminally investigate or prosecute any alcohol or drug abuse patient.[facility] CenterIn the event this information is protected by the Federal Confidentiality of Alcohol and Drug Abuse Patient Records regulations: The Federal rules restrict any use of the information to criminally investigate or prosecute any alcohol or drug abuse patient.[facility] CenterIn the event this information is protected by the Federal Confidentiality of Alcohol and Drug Abuse Patient Records regulations: The Federal rules restrict any use of the information to criminally investigate or prosecute any alcohol or drug abuse patient.[facility] CenterIn the event this information is protected by the Federal Confidentiality of Alcohol and Drug Abuse Patient Records regulations: The Federal rules restrict any use of the information to criminally investigate or prosecute any alcohol or drug abuse patient.[facility] CenterIn the event this information is protected by the Federal Confidentiality of Alcohol and Drug Abuse Patient Records regulations: The Federal rules restrict any use of the information to criminally investigate or prosecute any alcohol or drug abuse patient.[facility] CenterIn the event this information is protected by the Federal Confidentiality of Alcohol and Drug Abuse Patient Records regulations: The Federal rules restrict any use of the information to criminally investigate or prosecute any alcohol or drug abuse patient.[facility] CenterIn the event this information is protected by the Federal Confidentiality of Alcohol and Drug Abuse Patient Records regulations: The Federal rules restrict any use of the information to criminally investigate or prosecute any alcohol or drug abuse patient.[facility] CenterIn the event this information is protected by the Federal Confidentiality of Alcohol and Drug Abuse Patient Records regulations: The Federal rules restrict any use of the information to criminally investigate or prosecute any alcohol or drug abuse patient.[facility] CenterIn the event this information is protected by the Federal Confidentiality of Alcohol and Drug Abuse Patient Records regulations: The Federal rules restrict any use of the information to criminally investigate or prosecute any alcohol or drug abuse patient.[facility] CenterIn the event this information is protected by the Federal Confidentiality of Alcohol and Drug Abuse Patient Records regulations: The Federal rules restrict any use of the information to criminally investigate or prosecute any alcohol or drug abuse patient.[facility] CenterIn the event this information is protected by the Federal Confidentiality of Alcohol and Drug Abuse Patient Records regulations: The Federal rules restrict any use of the information to criminally investigate or prosecute any alcohol or drug abuse patient.[facility] CenterIn the event this information is protected by the Federal Confidentiality of Alcohol and Drug Abuse Patient Records regulations: The Federal rules restrict any use of the information to criminally investigate or prosecute any alcohol or drug abuse patient.[facility] CenterIn the event this information is protected by the Federal Confidentiality of Alcohol and Drug Abuse Patient Records regulations: The Federal rules restrict any use of the information to criminally investigate or prosecute any alcohol or drug abuse patient.[facility] CenterIn the event this information is protected by the Federal Confidentiality of Alcohol and Drug Abuse Patient Records regulations: The Federal rules restrict any use of the information to criminally investigate or prosecute any alcohol or drug abuse patient.[facility] CenterIn the event this information is protected by the Federal Confidentiality of Alcohol and Drug Abuse Patient Records regulations: The Federal rules restrict any use of the information to criminally investigate or prosecute any alcohol or drug abuse patient.[facility] CenterIn the event this information is protected by the Federal Confidentiality of Alcohol and Drug Abuse Patient Records regulations: The Federal rules restrict any use of the information to criminally investigate or prosecute any alcohol or drug abuse patient.[facility] CenterIn the event this information is protected by the Federal Confidentiality of Alcohol and Drug Abuse Patient Records regulations: The Federal rules restrict any use of the information to criminally investigate or prosecute any alcohol or drug abuse patient.[facility] CenterIn the event this information is protected by the Federal Confidentiality of Alcohol and Drug Abuse Patient Records regulations: The Federal rules restrict any use of the information to criminally investigate or prosecute any alcohol or drug abuse patient.[facility] CenterIn the event this information is protected by the Federal Confidentiality of Alcohol and Drug Abuse Patient Records regulations: The Federal rules restrict any use of the information to criminally investigate or prosecute any alcohol or drug abuse patient.[facility] CenterIn the event this information is protected by the Federal Confidentiality of Alcohol and Drug Abuse Patient Records regulations: The Federal rules restrict any use of the information to criminally investigate or prosecute any alcohol or drug abuse patient.[facility] CenterIn the event this information is protected by the Federal Confidentiality of Alcohol and Drug Abuse Patient Records regulations: The Federal rules restrict any use of the information to criminally investigate or prosecute any alcohol or drug abuse patient.[facility] CenterIn the event this information is protected by the Federal Confidentiality of Alcohol and Drug Abuse Patient Records regulations: The Federal rules restrict any use of the information to criminally investigate or prosecute any alcohol or drug abuse patient.[facility] CenterIn the event this information is protected by the Federal Confidentiality of Alcohol and Drug Abuse Patient Records regulations: The Federal rules restrict any use of the information to criminally investigate or prosecute any alcohol or drug abuse patient.[facility] CenterIn the event this information is protected by the Federal Confidentiality of Alcohol and Drug Abuse Patient Records regulations: The Federal rules restrict any use of the information to criminally investigate or prosecute any alcohol or drug abuse patient.[facility] CenterIn the event this information is protected by the Federal Confidentiality of Alcohol and Drug Abuse Patient Records regulations: The Federal rules restrict any use of the information to criminally investigate or prosecute any alcohol or drug abuse patient.[facility] CenterIn the event this information is protected by the Federal Confidentiality of Alcohol and Drug Abuse Patient Records regulations: The Federal rules restrict any use of the information to criminally investigate or prosecute any alcohol or drug abuse patient.[facility] CenterIn the event this information is protected by the Federal Confidentiality of Alcohol and Drug Abuse Patient Records regulations: The Federal rules restrict any use of the information to criminally investigate or prosecute any alcohol or drug abuse patient.[facility] CenterIn the event this information is protected by the Federal Confidentiality of Alcohol and Drug Abuse Patient Records regulations: The Federal rules restrict any use of the information to criminally investigate or prosecute any alcohol or drug abuse patient.[facility] CenterIn the event this information is protected by the Federal Confidentiality of Alcohol and Drug Abuse Patient Records regulations: The Federal rules restrict any use of the information to criminally investigate or prosecute any alcohol or drug abuse patient.[facility] CenterIn the event this information is protected by the Federal Confidentiality of Alcohol and Drug Abuse Patient Records regulations: The Federal rules restrict any use of the information to criminally investigate or prosecute any alcohol or drug abuse patient.[facility] CenterIn the event this information is protected by the Federal Confidentiality of Alcohol and Drug Abuse Patient Records regulations: The Federal rules restrict any use of the information to criminally investigate or prosecute any alcohol or drug abuse patient.[facility] CenterIn the event this information is protected by the Federal Confidentiality of Alcohol and Drug Abuse Patient Records regulations: The Federal rules restrict any use of the information to criminally investigate or prosecute any alcohol or drug abuse patient.[facility] CenterIn the event this information is protected by the Federal Confidentiality of Alcohol and Drug Abuse Patient Records regulations: The Federal rules restrict any use of the information to criminally investigate or prosecute any alcohol or drug abuse patient.[facility] CenterIn the event this information is protected by the Federal Confidentiality of Alcohol and Drug Abuse Patient Records regulations: The Federal rules restrict any use of the information to criminally investigate or prosecute any alcohol or drug abuse patient.[facility] CenterIn the event this information is protected by the Federal Confidentiality of Alcohol and Drug Abuse Patient Records regulations: The Federal rules restrict any use of the information to criminally investigate or prosecute any alcohol or drug abuse patient.[facility] CenterIn the event this information is protected by the Federal Confidentiality of Alcohol and Drug Abuse Patient Records regulations: The Federal rules restrict any use of the information to criminally investigate or prosecute any alcohol or drug abuse patient.[facility] CenterIn the event this information is protected by the Federal Confidentiality of Alcohol and Drug Abuse Patient Records regulations: The Federal rules restrict any use of the information to criminally investigate or prosecute any alcohol or drug abuse patient.[facility] CenterIn the event this information is protected by the Federal Confidentiality of Alcohol and Drug Abuse Patient Records regulations: The Federal rules restrict any use of the information to criminally investigate or prosecute any alcohol or drug abuse patient.[facility] CenterIn the event this information is protected by the Federal Confidentiality of Alcohol and Drug Abuse Patient Records regulations: The Federal rules restrict any use of the information to criminally investigate or prosecute any alcohol or drug abuse patient.[facility] CenterIn the event this information is protected by the Federal Confidentiality of Alcohol and Drug Abuse Patient Records regulations: The Federal rules restrict any use of the information to criminally investigate or prosecute any alcohol or drug abuse patient.[facility] CenterIn the event this information is protected by the Federal Confidentiality of Alcohol and Drug Abuse Patient Records regulations: The Federal rules restrict any use of the information to criminally investigate or prosecute any alcohol or drug abuse patient.[facility] CenterIn the event this information is protected by the Federal Confidentiality of Alcohol and Drug Abuse Patient Records regulations: The Federal rules restrict any use of the information to criminally investigate or prosecute any alcohol or drug abuse patient.[facility] CenterIn the event this information is protected by the Federal Confidentiality of Alcohol and Drug Abuse Patient Records regulations: The Federal rules restrict any use of the information to criminally investigate or prosecute any alcohol or drug abuse patient.[facility] Reason for Visit (unrecogniz ed section and content) ReasonCommentsLiver DiseaseHepatic SteatosisReasonCommentsRadiology CTReason CommentsResultsReasonCommentsAppointmentReasonCommentsGastroparesisEGG test ReasonCommentsMedication PreauthorizationMotegrityReasonCommentsConsultReason CommentsMedication PreauthorizationPA for IbsrelaSpecialtyDiagnoses / Procedures Referred By ContactReferred To ContactCT IMAGING Diagnoses Bilious vomiting with nausea Right sided abdominal pain Nausea Procedures CT ABD/PEL WO IVCON CT ABD & [place] [address] [place] [address] [place] [address] Referral IDStatusReasonStart DateExpiration DateVisits RequestedVisits [id number] Auto-Generated Referral [id number] UpdateReferral & Records are in Care EverywhereReasonCommentsEventZIO PATCHReasonOnset DateCommentsPalpitations 12/28/20238436Efkoihq75/05/2024ReasonOnset DateCommentsPT Initial Eval1 Tried to contact to schedule PT Eval for cervical radiculopathy; but had to lm requesting call back.Call Back01/29/2024She contacted and we scheduled PT Eval 02/04 w/ Zhen Burgess PT.ReasonOnset DateCommentsLab hzhhjya7012/18/2023 ReasonCommentsAnkle PainReasonOnset DateCommentsMed Jreyzs234ReasonOnset DateCommentsMed Wjolei234ReasonOnset DateCommentsMed Xpkeoi3103/07/2024 ReasonCommentsGynecologic ExamReasonOnset DateCommentsMed Gzlfbq944Reason Onset DateCommentsMed Ajfpqd764ReasonCommentsshaking handsReasonComments Weight CheckPt started this a month agoReasonCommentsReceived Outside Medical RecordsThe Reconstruction InstituteReasonCommentsReceived Outside Medical RecordsCardio Clearance The Reconstruction InstituteReasonCommentsBack Pain ReasonCommentsDyspareuniaReasonOnset DateCommentsMed Nmdvxg074Reason CommentsRecheckReasonOnset DateCommentsMed Wgqdrl6504/30/2024ReasonOnset Date CommentsMed Nktcoo4304/30/2024ReasonCommentsPatient Qjoeme29/17/24 Echo Faxed ReasonCommentsAnkle SprainSpecialtyDiagnoses / ProceduresReferred By Contact Referred To ContactPodiatry Diagnoses Sprain of anterior talofibular ligament of right ankle, subsequent encounter Procedures [place] OFFICE/OUTPATIENT [facility] Giovani Hagen MD [address] [place] [address] Phone: tel: fax: Prateek Pitts DPM [address] [place] [address] Phone: tel: fax: Referral IDStatusReasonStart DateExpiration DateVisits RequestedVisits [id number] Specialty Services Required /[id number]vqhrjTbcrmqEzcmr DateCommentsMed Cflixa8205/08/2024ReasonCommentsnext stepsReasonCommentsFollow-upFU RT ankle- discuss surgeryReasonCommentsPre-op VisitPt present today for a pre operative visit. Pt is scheduled for aReasonCommentsResultsC diffReasonCommentsPost-op VisitReasonOnset DateCommentsMed Xcizhx3406/03/2024ReasonCommentsAnxietyDiscuss FMLA paperworkReasonOnset DateCommentsMed Erhrxw8006/18/2024ReasonCommentsPost-op 1st post- rt lateral ankle stabilizationReasonCommentsFoot/ankle Post-opWK 2 post opReasonCommentsPainful Intercoursebleeding with intercourseReasonComments Post-op3 week post opReasonCommentsAnxietyReasonCommentsVaginal ProblemPt presents today for consult - painful intercourseReasonCommentsFoot/ankle Post-op WEEK 6 POST OPReasonOnset DateCommentsMed Abyile3207/31/2024ReasonComments Foot/ankle Post-opWK 9 post opReasonCommentsFoot/ankle Post-opWk 10 post op ReasonOnset PgvoAdxrmornBscbpiiokgwz76/05/2025ReasonOnset DateCommentsMed Refill 08/28/2024ReasonCommentsMed RefillReasonCommentsFoot/ankle Post-opWK 12 post op ReasonCommentsER Follow-upReasonCommentsHemorrhoidsReasonCommentsPT Eval SpecialtyDiagnoses / ProceduresReferred By ContactReferred To ContactREHAB AND SPORTS THERAPY INS Diagnoses Pelvic floor dysfunction Chronic constipation Procedures CONSULT TO PHYSICAL THERAPY PHYSICAL THERAPY EVALUATION HIGH COMPLEX 45 MINS THERAPEUTIC EXERCISES RE, EA 15 MIN. Mario Harper, BASSAM.OXIDATION ENGINEER [address] [place] [address] Phone: tel: fax: [facility] [address] [place] [address] Referral IDStatusRe[facility] DateExpiration DateVisits RequestedVisits [id number] Auto-Generated Referral /[id number] Gen RMPSpecialtyDiagnoses / Procedures Referred By ContactReferred To ContactXR IMAGING Diagnoses Pelvic floor dysfunction Chronic constipation Procedures XR ABDOMEN 1V SUPINE RADIOLOGIC EXAM ABDOMEN 1 VIEW Mario Harper, CHIEF TECHNICIAN X RAY.OXIDATION ENGINEER [address] [place] [address] Phone: tel: fax: [facility] [place] [address] Referral IDStatFayette [facility] DateExpiration DateVisits RequestedVisits [id number] Auto-Generated Referral [id number] RefillDoxepin, Ativan, Adderall both 10 and 30 mgReasonCommentsAnkle PainRT ankle injuryReasonCommentslab resultsReason Onset DateCommentsdose correction on med12/16/2024ReasonCommentsAnkle PainF/U RT ankle sinus tarsi inj q8MlzegoJmwtjqrzOwadgxhPjpmcfbahSwuzseldg / Procedures Referred By ContactReferred To Contact Diagnoses Other specified dyspareunia Pelvic pain in female Procedures OFFICE/OUTPATIENT [facility] 60 MINUTES Javy Boudreaux MD [address] [address] Phone: tel: fax: Referral IDStatusReasonStart DateExpiration DateVisits RequestedVisits [id number] PCP Requested Referral Auto-Generated Referral 1ReasonOnset DateCommentsMed Vbdqmf9401/22/2025ReasonComments Follow-upF/U LT grt nail avulsionReasonOnset DateCommentsMed Gvbrbp9402/27/2025 Goals (unrecognized section and content) Goals may [...] BE BASED ON THE PRIMARY CLINICAL RECORDS. [employer] provides no warranty or guarantee of the accuracy or completeness of information in this document.
--- OUTSIDE RECORDS SUMMARY | 2025-02-27 19:15 | XMS_ITS | Encounter Summary ---
Author Organization [facility] Address [address] [facility] [place] [address] Care Team Providers Care Hr Manager Name Role Phone Emerald Hagen MD Unavailable Emerald Hagen MD Primary Care Provider [phone] Encounter Details DateTypeDepartmentCare Team (Latest Contact Info)Zcmlyiyjfnf77/13/2024Clinisync Result Encounter [facility] External Department Unsolicited Provider, Generic External Data Social History Tobacco UseTypesPacks/DayYears UsedDateSmoking Tobacco: FormerSmokeless [...] relatives?Once a week05/09/2024How often do you attend restoration or temple services?Never05/09/2024Do you belong to any clubs or organizations such as restoration groups, unions, fraternal or athletic groups, or school groups?Yes05/09/2024How often do you attend meetings of the clubs or organizations you belong to?Never05/09/2024re you , , , , never , or living with a partner?Efljnau7605/09/2024UDIT-C AnswerDate RecordedQ1: How often do you have a drink containing alcohol?2-4 times a month05/09/2024Q2: How many drinks containing alcohol do you have on a typical day when you are drinking?1 or Q3: How often do you have six or more drinks on one occasion?Less than xmehlpb7605/09/2024Overall Financial Resource Strain (CARDIA)AnswerDate RecordedHow hard is it for you to pay for the very basics like food, housing, medical care, and heating?Not hard at all 05/09/2024PHQ-2AnswerDate RecordedPatient Health Questionnaire-2 Score4 01/06/2025[facility] [place] [facility] Occupational Health - Occupational Stress QuestionnaireAnswerDate [...] didn't have money to get more.Never true 01/16/2025PRAPARE - TransportationAnswerDate RecordedIn the past 12 months, [...] in a [place] facility (including now)?No 05/09/2024CommentsNoSex and Gender InformationValueDate RecordedSex Assigned at BirthNot on fileLegal EgfRrwxbc92/15/2023 7:29 PM EDTGender Identity Not on fileSexual OrientationNot on filedocumented as of this encounter Functional Status * AUDIT-C ScoreAnswerDate of LmxtmefsayAfyljp801/16/2025 9:30 AM Jenaro Rico * Q1: How often do you have [...] drinks on one occasion?AnswerDate of AssessmentAuthorLess than amqstjp5205/09/2024 9:30 AM Jacky Generic * Over the past 2 weeks, how often have you been bothered by any of the following problems?QuestionAnswerDate of AssessmentAuthorLittle interest or pleasure in doing thingsMore than half the days01/06/2025 10:55 AM Alex CHAVIRAeling down, depressed, or hopelessMore than half the days01/06/2025 10:55 AM Herbert CHAVIRAnt Health Questionnaire-2 Kyaob076 10:55 AM BALDO CHAVIRA * QuestionAnswerDate of [...] all01/06/2025 10:55 AM Lacy CHAVIRA Health Questionnaire-9 Hxlnc6303 10:55 AM BALDO CHAVIRA * If you checked off any problems on this questionnaire so far,QuestionAnswer Date of AssessmentAuthorHow difficult have these problems made it for you to do your work, take care of things at home, or get along with other people?Very ijkbxuuji56/15/2025 10:55 AM BALDO CHAVIRA documented as of this encounter Plan of Treatment DateTypeDepartmentCare Team (Latest Contact Info)Lapboxvddfd96/10/2025 4:30 PM ESTClinical Support [facility] [address] [place] [address] Milton Duvall, DPM FACFAS [address] [place] [address] 03/14/2025 11:40 AM ESTOffice Visit [facility] [address] [place] [address] aJtin Cabrera MD [address] [address] 03/18/2025 9:00 AM ESTOffice Visit [facility] [address] [facility] [address] [place] [address] Emerald Hagen MD [address] [facility] [address] [place] [address] documented as of this encounter Goals GoalPatient Goal TypeAssociated ProblemsRecent ProgressPatient-Stated?Author Help patient manage antidepressant medication Care PlanPatient on antidepressant monitoring Emerald Rain MD Baseline PHQ-9 Care PlanBaseline PHQ-9Emerald Underwood, MDdocumented as of this encounter Procedures Procedure NamePriorityDate/TimeAssociated DiagnosisCommentsXR ANKLE RT MIN 3V 03/06/2024 7:20 AM EST documented in this encounter Results * XR ANKLE RT MIN 3V (03/06/2024 7:20 AM EST)Anatomical RegionLateralityModality OtherSpecimen (Source)Anatomical Location / LateralityCollection Method / VolumeCollection TimeReceived Time03/06/2024 7:20 AM EST Narrative 03/06/2024 7:23 AM EST [facility] ?[address] ? [place] [address] ?XRay Report ? Signed ? Patient: MEREDITH,ORION A ?MR#: [id number] ?? : 1990 ?Acct:[id number] ?? Age/Sex: 33 / F ?ADM Date: 11/11/24 ?? Loc: EC ? Attending Dr: Keegan Navas M.D. ? Ordering Physician: Keegan Navas M.D. ?? Date of Service: 03/04/24 ?? Procedure(s): XR ankle RT min 3V ?? Accession Number(s): [id number] ? cc: EMERALD HAGEN ; Keegan Navas M.D. ? [facility] ? [address] [facility] ? [place] [address] ? Patient Name: ?? ORIONISABELL BARNETT ? MRN: [facility]:[id number] ? date: 1990 ?Sex: F ?? Assigned Patient Location: EC ?? Current Patient Location: ? Accession/Order Number: [id number] ?? Exam Date: 03/04/2024 ??08:02 ?Report Date: 03/06/2024 ??07:20 ? At the request of: ?? KEEGAN NAVAS ? Procedure: ??XR ankle RT min 3V ? PROCEDURE: XR ankle RT min 3V ? COMPARISON: 01/10/2024 ? HISTORY: RIGHT ANKLE PAIN ? FINDINGS: ?? BONES:New calcific density identified along the medial aspect of the medial ?? malleolus measuring 4 x 1 mm and size, avulsion fracture is suspected. No ?? dislocation. ?? SOFT TISSUES:Negative. No visible soft tissue swelling. ?? EFFUSION:None visible. ?? OTHER: Negative. ? XR/XR ankle RT min 3V ?? IMPRESSION: ? Suspected 4 mm avulsion fracture medial aspect of the medial malleolus ? Electronically authenticated by: JACKSON ??CARRIE ?? Date: 03/06/2024 ??07:20 ? Dictated By: ?Jackson Butler M.D. ? Signed By: ?03/06/24722 ? DD/ 9 ? TD/TT: ? Steamer G[employer] Candy: Procedure Note Radiology, Radiologist, MD - 03/06/2024 [place] [address] XRay Report Signed Patient: ORION BARNETT AMR#: [id number] : 1990Acct:[id number] Age/Sex: 33 / FADM Date: 03/04/24 Loc: EC Attending Dr: Keegan Navas M.D. Ordering Physician: Keegan Navas M.D. Date of Service: 03/04/24 Procedure(s): XR ankle RT min 3V Accession Number(s): [id number] cc: EMERALD HAGEN ; Keegan Navas M.D. The [address] [address] Patient Name: ORION BARNETT MRN: [facility]:[id number] date: 1990 Sex: F Assigned Patient Location: Current Patient Location: Accession/Order Number: [id number] Exam Date: 03/04/2024 08:02 Report Date: 03/06/2024 07:20 At the request of: KEEGAN NAVAS Procedure: XR ankle RT min 3V [...] Butler M.D. Signed By:03/06/24722 DD/ 9 TD/TT: Steamer Gum Candy: Authorizing ProviderResult TypeResult StatusGeneric External Data Provider CLINIS[facility]NC IMAGINGFinal Result documented in this encounter Visit Diagnoses Not on filedocumented in this encounter Additional Health Concerns Active ProblemsNoted DateDiagnosed DatePatient on antidepressant monitoring plan 4Baseline PHQ-904documented as of this encounter Care Teams Team MemberRelationshipSpecialtyStart DateEnd Date Emerald Hagen MD [address] [address] PCP - Medical [place] [employer]/ Emerald Hagen MD [address] [place] [address] PCP - GeneralFamily Medicine08/30/22documented as of this encounter
--- OUTSIDE RECORDS SUMMARY | 2025-02-27 19:15 | XMS_ITS | Encounter Summary ---
Author Organization [facility] Address [address] [facility] [place] [address] Care Team Providers Care Power Shovel Operator Helper Name Role Phone Emerald Sanchez MD Unavailable Emerald Sanchez MD Primary Care Provider Encounter Details DateTypeDepartmentCare Team (Latest Contact Info)Ytlpoxmslmp99/23/2025Telephone [facility] [address] [facility] [address] [place] [address] Jatin Cabrera MD [address] [facility] [address] [place] [address] Social History Tobacco UseTypesPacks/DayYears UsedDateSmoking Tobacco: Every [...] relatives?Once a week05/09/2024How often do you attend quaker or muslim services?Never05/09/2024Do you belong to any clubs or organizations such as quaker groups, unions, fraUrgent Group or athletic groups, or school groups?Yes05/09/2024How often do you attend meetings of the clubs or organizations you belong to?Never05/09/2024re you , , , , never , or living with a partner?Cnkbmjl3705/09/2024 AUDIT-CAnswerDate RecordedQ1: How often do you have a drink containing alcohol? 2-4 times a month05/09/2024Q2: How many drinks containing alcohol do you have on a typical day when you are drinking?1 or Q3: How often do you have six or more drinks on one occasion?Less than wgxygtr9805/09/2024Overall Financial Resource Strain (CARDIA)AnswerDate RecordedHow hard is it for you to pay for the very basics like food, housing, medical care, and heating?Not hard at all 05/09/2024PHQ-2AnswerDate RecordedPatient Health Questionnaire-2 Score4 01/06/2025[facility] [place] of Occupational Health - Occupational Stress QuestionnaireAnswerDate [...] steady place to sleep or slept in cairoelter (including now)?No04/18/2023Housing Stability Vital SignAnswerDate RecordedIn the last 12 months, was there a time when you were not able to pay the mortgage or rent on time?No05/09/2024In the past 12 months, how many times have you moved where you were living?t any time in the past 12 months, were you homeless or living in a longterm (including now)?No 05/09/2024CommentsNoSex and Gender InformationValueDate RecordedSex Assigned at BirthNot on fileLegal FruQvlkpz05/15/2023 7:29 PM EDTGender Identity Not on fileSexual OrientationNot on filedocumented as of this encounter Miscellaneous Notes * Telephone Encounter - Arina Mcdaniel MA - 02/25/2025 10:44 AM EST Notes faxed. * Addendum Note - Arina Mcdaniel MA - 02/17/2025 9:37 AM EDTAddended by: ARINA MCDANIEL on: 02/17/2025 09:37 AM Modules accepted: Orders * Telephone Encounter - Arina Mcadniel MA - 02/17/2025 9:28 AM EDT Called and spoke to patient letting her know we would [place] [facility] [place] and they will reach out to her. Last notes will need updated with left AFO bracing notes. Sending to you in teams. * Telephone Encounter - Jatin Cabrera MD - 02/13/2025 2:01 PM EDT Did we set her up with an AFO ? I would start there * Telephone Encounter - Ivelisse Ferguson - 02/13/2025 9:51 AM EDT Called pt to reschedule appointment, pt states she is having a really hard time with her foot drop.Pt is wanting to know if there is anything she can do to help with this. documented in this encounter Plan of Treatment DateTypeDepartmentCare Team (Latest Contact Info)Kkuyszzzexw84/10/2025 4:30 PM ESTClinical Support [facility] [address] [place] [address] Milton Duvall, DPM FACFAS [address] [place] [address] 03/14/2025 11:40 AM ESTOffice Visit [facility] [address] [facility] [address] [place] [address] Jatin Cabrera MD [address] [facility] [address] [address] 03/18/2025 9:00 AM ESTOffice Visit [facility] [place] [facility] [address] [facility] [address] [place] [phone] Emerald Sanchez MD [address] [facility] [address] [place] [address] documented as of this encounter Goals GoalPatient Goal TypeAssociated ProblemsRecent ProgressPatient-Stated?Author Help patient manage antidepressant medication Care PlanPatient on antidepressant monitoring Emerald Rain MD Baseline PHQ-9 Care PlanBaseline PHQ-9Emerald Underwood, MDdocumented as of this encounter Visit Diagnoses Diagnosis Left foot drop- Primary Other acquired deformity of ankle and foot documented in this encounter Additional Health Concerns Active ProblemsNoted DateDiagnosed DatePatient on antidepressant monitoring plan 4Baseline PHQ-9005/08/2023ssessmentNoted TimePHQ-9 Depression Total Score: 13001/06/2025 10:55 AM EDTdocumented as of this encounter Care Teams Team MemberRelationshipSpecialtyStart DateEnd Date Emerald Sanchez MD [address] [facility] [address] [place] [address] PCP - Medical [facility]10/23/1911 Emerald Sanchez MD [address] [facility] [address] [place] [address] PCP - GeneralUnitypoint Health-Keokukly Medicine08/30/22documented as of this encounter
--- OUTSIDE RECORDS SUMMARY | 2025-02-27 19:15 | XMS_ITS | Encounter Summary ---
Author Organization [facility] Address [address] [place] [address] Care Team Providers Care Medical Consultant Name Role Phone Emerald Hagen MD Unavailable Emerald Hagen MD Primary Care Provider [phone] Encounter Details DateTypeDepartmentCare Team (Latest Contact Info)Xzdztqxmlaf40/29/2024Clinisync Result Encounter [facility] External Department Unsolicited Provider, [...] relatives?Once a week05/09/2024How often do you attend mandaen or shinto services?Never05/09/2024Do you belong to any clubs or organizations such as mandaen groups, unions, fraternal or athletic groups, or school groups?Yes05/09/2024How often do you attend meetings of the clubs or organizations you belong to?Never05/09/2024re you , , , , never , or living with a partner?Ntwstwj4105/09/2024UDIT-C AnswerDate RecordedQ1: How often do you have a drink containing alcohol?2-4 times a month05/09/2024Q2: How many drinks containing alcohol do you have on a typical day when you are drinking?1 or Q3: How often do you have six or more drinks on one occasion?Less than hpppedw4705/09/2024Overall Financial Resource Strain (CARDIA)AnswerDate RecordedHow hard is it for you to pay for the very basics like food, housing, medical care, and heating?Not hard at all 05/09/2024PHQ-2AnswerDate RecordedPatient Health Questionnaire-2 Score4 01/06/2025[facility] [place] of Occup[facility] Health - Occupational Stress QuestionnaireAnswerDate [...] homeless or living in a snf (including now)?No 05/09/2024CommentsNoSex and Gender InformationValueDate RecordedSex Assigned at BirthNot on fileLegal XuvNvfnqv23/15/2023 7:29 PM EDTGender Identity Not on fileSexual OrientationNot on filedocumented as of this encounter Functional Status * AUDIT-C ScoreAnswerDate of MiedsanhhcSvniht633/16/2025 9:30 AM Jenaro Rico * Q1: How [...] drinks on one occasion?AnswerDate of AssessmentAuthorLess than qjuogge5305/09/2024 9:30 AM Jacky Generic * Over the past 2 weeks, how often have you been bothered by any of the following problems?QuestionAnswerDate of AssessmentAuthorLittle interest or pleasure in doing thingsMore than half the days01/06/2025 10:55 AM Alex CHAVIRAeling down, depressed, or hopelessMore than half the days01/06/2025 10:55 AM Herbert CHAVIRAnt Health Questionnaire-2 Tzqoz696 10:55 AM BALDO CHAVIRA * QuestionAnswerDate of AssessmentAuthorTrouble falling or staying asleep, or sleeping too muchMore than half the days01/06/2025 10:55 AM BALDO CHAVIAR Feeling tired or having little energyMore than [...] all01/06/2025 10:55 AM Lacy CHAVIRA Health Questionnaire-9 Rybuv1875 10:55 AM BALDO CHAVIRA * If you checked off any problems on this questionnaire so far,QuestionAnswer Date of AssessmentAuthorHow difficult have these problems made it for you to do your work, take care of things at home, or get along with other people?Very ftezkehqm26/15/2025 10:55 AM BALDO CHAVIRA documented as of this encounter Plan of Treatment DateTypeDepartmentCare Team (Latest Contact Info)Myxnaoaqzfp20/10/2025 4:30 PM ESTClinical Support [facility] [address] [place] [address] Milton Duvall, DPM FACFAS [address] [place] [address] 03/14/2025 11:40 AM ESTOffice Visit [facility] [address] [place] [address] Jatin Cabrera MD [address] [address] 03/18/2025 9:00 AM ESTOffice Visit [facility] [address] [facility] 110 [place] [address] Emerald Hagen MD [address] [facility] 110 [place] [address] documented as of this encounter Goals GoalPatient Goal TypeAssociated ProblemsRecent ProgressPatient-Stated?Author Help patient manage antidepressant medication Care PlanPatient on antidepressant monitoring Emerald Rain MD Baseline PHQ-9 Care PlanBaseline PHQ-9Emerald Underwood, MDdocumented as of this encounter Procedures Procedure NamePriorityDate/TimeAssociated DiagnosisCommentsXR ABDOMEN 1V 11/20/2023 7:57 AM EDT documented in this encounter Results * XR ABDOMEN 1V (11/20/2023 7:57 AM EDT)Anatomical RegionLateralityModalityOther Specimen (Source)Anatomical Location / LateralityCollection Method / Volume Collection TimeReceived Time11/20/2023 7:57 AM EDT Narrative 11/20/2023 8:00 AM EDT [facility] ?[address] ? [place] [address] ?XRay Report ? Signed ? Patient: MEREDITH,ORION A ?MR#: [id number] ?? : 1990 ?Acct:[id number] ?? Age/Sex: 33 / F ?ADM Date: 07/25/24 ?? Loc: RAD ? Attending : Jimenez Ortiz M.D. ? Ordering Physician: Jimenez Ortiz M.D. ?? Date of Service: 11/16/23 ?? Procedure(s): XR abdomen 1V ?? Accession Number(s): [id number] ? cc: EMERALD HAGEN ; Jimenez Ortiz M.D. ? [facility] ? [address] ? [place] [address] ? Patient Name: ?? ORION A MEREDITH ? MRN: [facility]:[id number] ? date: 1990 ?Sex: F ?? Assigned Patient Location: RAD ?? Current Patient Location: ? Accession/Order Number: [id number] ?? Exam Date: 11/16/2023 ??16:15 ?Report Date: 11/20/2023 ??07:57 ? At the request of: ?? JIMENEZ ??DANICA ? Procedure: ??XR abdomen 1V ? EXAMINATION: XR abdomen 1V ? HISTORY: Kidney Stone N20.0, Recurrent UTI N39.0 ? COMPARISON: XR KUB 06/29/2022 ? FINDINGS: ?? KIDNEY/URETER - RIGHT: No visible renal or ureteral calcifications. ?? KIDNEY/URETER - LEFT: No visible renal or ureteral calcifications. ?? PELVIS: No visible ureteral calcifications. ?? BOWEL: No abnormal dilation or deviation. ?? BONES: No acute abnormality. ?? OTHER: Negative. No abnormal gaseous collections. ? XR/XR abdomen 1V ?? IMPRESSION: ? 1. No visible urinary tract calculi. ? Electronically authenticated by: KEEGAN ??ANTHONY ?? Date: 11/20/2023 ??07:57 ? Dictated By: ?Keegan Bruno M.D. ? Signed By: ?11/20/23 0800 ? DD/ 0757 ? TD/TT: ? 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 Ordering Physician: Jimenez Ortiz M.D. Date of Service: 11/16/23 Procedure(s): XR abdomen 1V Accession Number(s): [id number] cc: EMERALD HAGEN ; Jimenez Ortiz M.D. [address] [address] Patient Name: ORION BARNETT MRN: [id number] date: 1990 Sex: F Assigned Patient Location: RAD Current Patient Location: Accession/Order Number: [id number] Exam Date: 11/16/2023 16:15 Report Date: 11/20/2023 07:57 At the request of: JIMENEZ ORTIZ Procedure: XR abdomen 1V EXAMINATION: XR [...] visible urinary tract calculi. Electronically authenticated by: KEEGAN BRUNO Date: 11/20/2023 07:57 Dictated By: Keegan Bruno M.D. Signed By:11/20/23 0800 DD/ 0757 TD/TT: Geothermal Powerplant Mechanic: Authorizing ProviderResult TypeResult StatusGeneric External Data Provider CLINISYNC IMAGINGFinal Result documented in this encounter Visit Diagnoses Not on filedocumented in this encounter Additional Health Concerns Active ProblemsNoted DateDiagnosed DatePatient on antidepressant monitoring plan 4Baseline PHQ-904documented as of this encounter Care Teams Team MemberRelationshipSpecialtyStart DateEnd Date Emerald Hagen MD [address] [address] PCP - Medical [place] [employer]/ Emerald Hagen MD [address] [address] PCP - GeneralFamily Medicine08/30/22documented as of this encounter
--- OUTSIDE RECORDS SUMMARY | 2025-02-27 19:15 | XMS_ITS | Encounter Summary ---
Author Organization [facility] Address [address] [place] [address] Care Team Providers Care Personnel Analyst Name Role Phone Emerald Sanchez MD Primary Care Provider [phone] Deena Osorio APRN Unavailable [phone] Darwin Starr DO Unavailable [phone] Source Comments In the event this information is protected by the Federal Confidentiality of Alcohol and Drug AbusePatient Records regulations: The Federal rules restrict any use of the information to criminally investigate or prosecute any alcohol or drug abuse patient.[facility] Encounter Details DateTypeDepartmentCare Team (Latest Contact Info)Nlerwdiisvu57/23/2025Travel Social History Tobacco UseTypesPacks/DayYears UsedDateSmoking Tobacco: NeverSmokeless Tobacco: NeverAlcohol UseStandard Drinks/WeekCommentsYes4 (1 standard drink = 0.6 oz pure alcohol)sociallyPHQ-2AnswerDate RecordedPHQ-2 hrdbt0045Area Deprivation IndexAnswerDate RecordedNational Score (1-100), lower number is lower risk65 10/17/2022State Score (1-10), lower number is lower rriu0203Data from: https://www.neighborhoodatlas.medicine.[facility].edu/. Last address used for xgdmzfmwluy0490 3CommentsNoSex and Gender Information ValueDate RecordedSex Assigned at BirthNot on fileLegal PacFcnorg16/03/2019 9:05 PM EDTGender YsqznhvuXcrppe72/15/2022 8:30 AM ESTSexual OrientationNot on file documented as of this encounter Plan of Treatment Not on file documented as of this encounter Goals GoalPatient Goal TypeAssociated ProblemsRecent ProgressPatient-Stated?Author Blood Pressure < 140/90 Blood Gqwhqofu949/82(02/25/2025 1:56 PM EST)Solo Barclay MDdocumented as of this encounter Visit Diagnoses Not on filedocumented in this encounter Care Teams Team MemberRelationshipSpecialtyStart DateEnd Date Emerald Sanchez MD [address] [place] [address] PCP - GeneralFamily Bgqehmkj38/4/19 Deena Osorio APRN [address] [place] [address] ReferringFamily Mxatnsie59/11/24 Darwin Starr DO [address] [facility] [place] [address] ReferringOb/Gyn07/02/24documented as of this encounter
--- OUTSIDE RECORDS SUMMARY | 2025-02-27 19:15 | XMS_ITS | Encounter Summary ---
Author Organization [facility] Address [address] [place] [address] Care Team Providers Care Screw Eye Assembler Name Role Phone Emerald Sanchez MD Unavailable Emerald Sanchez MD Primary Care Provider [phone] Encounter Details DateTypeDepartmentCare Team (Latest Contact Info)Wepdzrxsxpq57/30/2025Abstract [facility] [address] [place] [address] Milton Duvall, DPM FACFAS [address] [facility] [place] [address] Social History Tobacco UseTypesPacks/DayYears UsedDateSmoking Tobacco: Every [...] relatives?Once a week05/09/2024How often do you attend taoist or episcopalian services?Never05/09/2024Do you belong to any clubs or organizations such as taoist groups, unions, fraDWNLD or athletic groups, or school groups?Yes05/09/2024How often do you attend meetings of the clubs or organizations you belong to?Never05/09/2024re you , , , , never , or living with a partner?Nptjomv0405/09/2024 AUDIT-CAnswerDate RecordedQ1: How often do you have a drink containing alcohol? 2-4 times a month05/09/2024Q2: How many drinks containing alcohol do you have on a typical day when you are drinking?1 or Q3: How often do you have six or more drinks on one occasion?Less than zkgcdma8605/09/2024Overall Financial Resource Strain (CARDIA)AnswerDate RecordedHow hard is it for you to pay for the very basics like food, housing, medical care, and heating?Not hard at all 05/09/2024PHQ-2AnswerDate RecordedPatient Health Questionnaire-2 Score4 01/06/2025[facility] [place] of Occupational Health - Occupational Stress QuestionnaireAnswerDate [...] steady place to sleep or slept in legacy healther (including now)?No04/18/2023Housing Stability Vital SignAnswerDate RecordedIn the last 12 months, was there a time when you were not able to pay the mortgage or rent on time?No05/09/2024In the past 12 months, how many times have you moved where you were living?t any time in the past 12 months, were you homeless or living in a halfway (including now)?No 05/09/2024CommentsNoSex and Gender InformationValueDate RecordedSex Assigned at BirthNot on fileLegal LqiLvzghr32/15/2023 7:29 PM EDTGender Identity Not on fileSexual OrientationNot on filedocumented as of this encounter Plan of Treatment DateTypeDepartmentCare Team (Latest Contact Info)Swuohcglokj15/10/2025 4:30 PM ESTClinical Support [facility] [address] [place] [address] Milton Duvall, DPM FACFAS [address] [facility] [place] [address] 03/14/2025 11:40 AM ESTOffice Visit [facility] [place] [facility] [address] [place] [address] Jatin Cabrera MD 1298 [facility] [address] [id number] 03/18/2025 9:00 AM ESTOffice Visit [facility] [place] [address] [email or web address] [address] [place] [address] Emerald Sanchez MD [address] [facility] 110 [place] [address] documented as of this encounter Goals GoalPatient [...] MemberRelationshipSpecialtyStart DateEnd Date Emerald Sanchez MD [address] [facility] 110 [place] [address] PCP - Medical [place] Commercial10/23/1911 Emerald Sanchez MD [address] [facility] 110 [place] [address] PCP - GeneralFamily Medicine08/30/22documented as of this encounter
--- OUTSIDE RECORDS SUMMARY | 2025-02-27 19:15 | XMS_ITS | Encounter Summary ---
Author Organization [facility] Address [address] [facility] [place] [address] Care Team Providers Care Target Aircraft Controller Name Role Phone Emerald Sanchez MD Unavailable Emerald Sanchez MD Primary Care Provider [phone] Reason for Visit * ReasonOnset DateCommentsMed Ugqnpk2002/27/2025 Encounter Details DateTypeDepartmentCare Team (Latest Contact Info)Cchxeokzefy94/06/2025Refill [facility] [place] [facility] [address] [place] [address] [place] [address] Sandy Hammond PA [address] [facility] 110 [place] [address] Attention deficit hyperactivity disorder (ADHD), predominantly inattentive type; Bipolar disorder, in partial remission, most recent episode manic (HCC); Agoraphobia with panic attacks Social History Tobacco UseTypesPacks/DayYears UsedDateSmoking Tobacco: Every [...] relatives?Once a week05/09/2024How often do you attend restorationism or judaism services?Never05/09/2024Do you belong to any clubs or organizations such as restorationism groups, unions, fraApplied BioCode or athletic groups, or school groups?Yes05/09/2024How often do you attend meetings of the clubs or organizations you belong to?Never05/09/2024re you , , , , never , or living with a partner?Ticyvyh9105/09/2024 AUDIT-CAnswerDate RecordedQ1: How often do you have a drink containing alcohol? 2-4 times a month05/09/2024Q2: How many drinks containing alcohol do you have on a typical day when you are drinking?1 or Q3: How often do you have six or more drinks on one occasion?Less than durqcja8505/09/2024Overall Financial Resource Strain (CARDIA)AnswerDate RecordedHow hard is it for you to pay for the very basics like food, housing, medical care, and heating?Not hard at all 05/09/2024PHQ-2AnswerDate RecordedPatient Health Questionnaire-2 Score4 01/06/2025[facility] [place] of Occupational Health - Occupational Stress QuestionnaireAnswerDate [...] steady place to sleep or slept in [facility] (including now)?No04/18/2023Housing Stability Vital SignAnswerDate RecordedIn the last 12 months, was there a time when you were not able to pay the mortgage or rent on time?No05/09/2024In the past 12 months, how many times have you moved where you were living?t any time in the past 12 months, were you homeless or living in a prison (including now)?No 05/09/2024CommentsNoSex and Gender InformationValueDate RecordedSex Assigned at BirthNot on fileLegal BfwIkmpqb54/15/2023 7:29 PM EDTGender Identity Not on fileSexual OrientationNot on filedocumented as of this encounter Miscellaneous Notes * Telephone Encounter - VINH Roque - 02/27/2025 2:11 PM EST OARRS reviewed, Rx sent into patient's pharmacy. documented in this encounter Plan of Treatment DateTypeDepartmentCare Team (Latest Contact Info)Izuterficzn22/10/2025 4:30 PM ESTClinical Support [facility] [address] [place] [address] Milton Duvall, DPM FACFAS [address] [place] [address] 03/14/2025 11:40 AM ESTOffice Visit [facility] [place] [facility] [address] [facility] [address] [place] [address] Jatin Cabrera MD 0066 [facility] [address] [id number] 03/18/2025 9:00 AM ESTOffice Visit [facility] [place] [address] [facility] 110 [place] [address] Emerald Sanchez MD [address] [facility] 110 [place] [address] documented as of this encounter Goals GoalPatient Goal TypeAssociated ProblemsRecent ProgressPatient-Stated?Author Help patient manage antidepressant medication Care PlanPatient on antidepressant monitoring planEmerald Underwood MD Baseline PHQ-9 Care PlanBaseline PHQ-9Emerald Underwood, MDdocumented as of this encounter Visit Diagnoses Diagnosis Attention deficit hyperactivity disorder (ADHD), predominantly inattentive type Bipolar disorder, in partial remission, most recent episode manic (HCC) 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 110 [place] [address] PCP - GeneralFamily Medicine08/30/22documented as of this encounter
--- OUTSIDE RECORDS SUMMARY | 2025-02-27 19:15 | XMS_ITS | Encounter Summary ---
Author Organization [facility] Address [address] [place] [address] Care Team Providers Care Rattle Leak And Squeak Repairer Name Role Phone Emerald Sanchez MD Primary Care Provider [phone] Deena Osorio APRN Unavailable [phone] Darwin Starr DO Unavailable [phone] Source Comments In the event this information is protected by the Federal Confidentiality of Alcohol and Drug AbusePatient Records regulations: The Federal rules restrict any use of the information to criminally investigate or prosecute any alcohol or drug abuse patient.[facility] Encounter Details DateTypeDepartmentCare Team (Latest Contact Info)Fwfnfjvtvin53/03/2025GI Preprocedure Call Ambulatory Surgery [address] [place] [address] [place] [address] [place] [address] Social History Tobacco UseTypesPacks/DayYears UsedDateSmoking Tobacco: NeverSmokeless Tobacco: NeverAlcohol UseStandard Drinks/WeekCommentsYes4 (1 standard drink = 0.6 oz pure alcohol)sociallyPHQ-2AnswerDate RecordedPHQ-2 pmhjz615UDIT-CAnswerDate RecordedFrequency of Alcohol ConsumptionNot on file02/25/2025Q2: How many drinks containing alcohol do you have on a typical day when you are drinking?Patient does not drink02/25/2025Frequency of Binge DrinkingNot on file02/25/2025rea Deprivation IndexAnswerDate RecordedNational Score (1-100), lower number is lower lijb548210/17/2022State Score (1-10), lower number is lower uysq898 Data from: https://www.neighborhoodatlas.medicine.[facility].edu/. Last address used for [address] [place] [address]/17/2022CommentsNoSex and Gender Information ValueDate RecordedSex Assigned at BirthNot on fileLegal MwvOdhivf60/03/2019 9:05 PM EDTGender XvvqmkhbQupjqj32/15/2022 8:30 AM ESTSexual OrientationNot on file documented as of this encounter Functional Status documented as of this encounter Plan of Treatment Not on file documented as of this encounter Goals GoalPatient Goal TypeAssociated ProblemsRecent ProgressPatient-Stated?Author Blood Pressure < 140/90 Blood Mjmuiopc166/82(02/25/2025 1:56 PM EST)Solo Barclay MDdocumented as of this encounter Visit Diagnoses Not on filedocumented in this encounter Care Teams Team MemberRelationshipSpecialtyStart DateEnd Date Emerald Sanchez MD [address] [facility] 110 [place] [address] PCP - GeneralFamily Eponboqj02/4/19 Deena Osorio APRN [address] [place] [address] ReferringFamily Gctrxcuc99/11/24 Darwin Starr DO [address] [facility] [place] [address] ReferringOb/Gyn07/02/24documented as of this encounter
--- OUTSIDE RECORDS SUMMARY | 2025-02-27 19:15 | XMS_ITS | Encounter Summary ---
Author Organization [facility] Address [address] [place] [address] Care Team Providers Care Diving Coach Name Role Phone Emerald Hagen MD Unavailable Emerald Hagen MD Primary Care Provider [phone] Encounter Details DateTypeDepartmentCare Team (Latest Contact Info)Caiewlzaebv96/25/2024Clinisync Result Encounter [facility] External Department Unsolicited Emerald Hagen MD [address] [facility] [address] [place] [address] Social History Tobacco UseTypesPacks/DayYears UsedDateSmoking Tobacco: FormerSmokeless [...] relatives?Once a week05/09/2024How often do you attend sikhism or congregation services?Never05/09/2024Do you belong to any clubs or organizations such as sikhism groups, unions, fraternal or athletic groups, or school groups?Yes05/09/2024How often do you attend meetings of the clubs or organizations you belong to?Never05/09/2024re you , , , , never , or living with a partner?Ahkldxk9805/09/2024UDIT-C AnswerDate RecordedQ1: How often do you have a drink containing alcohol?2-4 times a month05/09/2024Q2: How many drinks containing alcohol do you have on a typical day when you are drinking?1 or Q3: How often do you have six or more drinks on one occasion?Less than knyatyx3505/09/2024Overall Financial Resource Strain (CARDIA)AnswerDate RecordedHow hard is it for you to pay for the very basics like food, housing, medical care, and heating?Not hard at all 05/09/2024PHQ-2AnswerDate RecordedPatient Health Questionnaire-2 Score4 01/06/2025[facility] of Occupational Health - Occupational Stress QuestionnaireAnswerDate [...] or living in a group home (including now)?No 05/09/2024CommentsNoSex and Gender InformationValueDate RecordedSex Assigned at BirthNot on fileLegal UerRqpbml05/15/2023 7:29 PM EDTGender Identity Not on fileSexual OrientationNot on filedocumented as of this encounter Functional Status * AUDIT-C ScoreAnswerDate of LkbkrjtmcdMslgiq331/16/2025 9:30 AM Jacky Generic * Q1: How [...] drinks on one occasion?AnswerDate of AssessmentAuthorLess than ejwlrqq4305/09/2024 9:30 AM Jacky Generic * Over the past 2 weeks, how often have you been bothered by any of the following problems?QuestionAnswerDate of AssessmentAuthorLittle interest or pleasure in doing thingsMore than half the days01/06/2025 10:55 AM Alex CHAVIRAeling down, depressed, or hopelessMore than half the days01/06/2025 10:55 AM Herbert CHAVIRA Health Questionnaire-2 Esrzh390 10:55 AM BALDO CHAVIRA * QuestionAnswerDate of [...] all01/06/2025 10:55 AM Lacy CHAVIRA Health Questionnaire-9 Wpoon2756/15/2025 10:55 AM BALDO CHAVIRA * If you checked off any problems on this questionnaire so far,QuestionAnswer Date of AssessmentAuthorHow difficult have these problems made it for you to do your work, take care of things at home, or get along with other people?Very fudhgihon36/15/2025 10:55 AM BALDO CHAVIRA documented as of this encounter Plan of Treatment DateTypeDepartmentCare Team (Latest Contact Info)Figyhsogznd29/10/2025 4:30 PM ESTClinical Support [facility] [address] [place] [address] Milton Duvall, DPM FACFAS [address] [facility] [place] [address] 03/14/2025 11:40 AM ESTOffice Visit [facility] [address] [facility] [address] [place] [address] Jatin Cabrera MD [address] [facility] [address] [id number] 03/18/2025 9:00 AM ESTOffice Visit [facility] [address] [facility] [address] [place] [address] Emerald Hagen MD [address] [facility] 110 [place] [address] documented as of this encounter Goals GoalPatient Goal TypeAssociated ProblemsRecent ProgressPatient-Stated?Author Help patient manage antidepressant medication Care PlanPatient on antidepressant monitoring Emerald Rain MD Baseline PHQ-9 Care PlanBaseline PHQ-9Emerald Underwood MDdocumented as of this encounter Procedures Procedure NamePriorityDate/TimeAssociated DiagnosisCommentsXR CERVICAL SPINE 2-3V01/17/2024 6:21 AM EDT documented in this encounter Results * XR CERVICAL SPINE 2-3V (01/17/2024 6:21 AM EDT)Anatomical RegionLaterality ModalityOtherSpecimen (Source)Anatomical Location / LateralityCollection Method / VolumeCollection TimeReceived Time01/17/2024 6:21 AM EDT Narrative 01/17/2024 6:23 AM EDT [facility] ?[address] ? [place] [address] ?XRay Report ? Signed ? Patient: MEREDITH,ORION A ?MR#: [id number] ?? : 1990 ?Acct:[id number] ?? Age/Sex: 33 / F ?ADM Date: 09/20/24 ?? Loc: RAD ? Attending Dr: EMERALD HAGEN ? Ordering Physician: EMERALD HAGEN ?? Date of Service: 01/12/24 ?? Procedure(s): XR cervical spine 2-3V ?? Accession Number(s): [id number] ? cc: EMERALD HAGEN ? [facility] ? [address] ? [place] [address] ? Patient Name: ?? ORION Eleuterio BARNETT ? MRN: [facility]:[id number] ? date: 1990 ?Sex: F ?? Assigned Patient Location: RAD ?? Current Patient Location: ED.MAIN ?? Accession/Order Number: [id number] ?? Exam Date: 01/12/2024 ??16:55 ?Report Date: 01/17/2024 ??06:21 ? At the request of: ?? EMERALD ??HIEU ? Procedure: ??XR cervical spine 2-3V ? EXAMINATION: XR cervical spine 2-3V ? HISTORY: cervical mxnllojysxlccK57.12 , neck pain, numbness in shoulders and ?? fingers ? COMPARISON: No relevant comparison available. ? FINDINGS: ?? BONES: No significant spondylosis, scoliosis, fracture, or visible bony ?? lesion. ? DISC SPACES: No significant disc height narrowing, subluxation, or endplate ?? abnormality. ?? PARASPINOUS: Negative. No paraspinous abnormality is seen. ?? OTHER: Negative. ? XR/XR cervical spine 2-3V ?? IMPRESSION: ? 1. No acute abnormality or appreciable degenerative changes. Consider MRI of ?? cervical spine if symptoms persist. ? Electronically authenticated by: KEEGAN ??ANTHONY ?? Date: 01/17/2024 ??06:21 ? Dictated By: ?Keegan Bruno M.D. ? Signed By: ?01/17/24622 ? DD/ 0 ? TD/TT: ? Master Esthetician: Procedure Note Radiology, Radiologist, MD - 01/17/[address] [address] XRay Report Signed Patient: ORION BARNETT AMR#: [id number] : 1990Acct:[id number] Age/Sex: 33 / FADM Date: 01/12/24 Loc: RAD Attending Dr: EMERALD HAGEN Ordering Physician: EMERALD HAGEN Date of Service: 01/12/24 Procedure(s): XR cervical spine 2-3V Accession Number(s): [id number] cc: EMERALD HAGEN [place] [address] Patient Name: ORION BARNETT MRN: [facility]:[id number] date: 1990 Sex: F Assigned Patient Location: RAD Current Patient Location: ED.MAIN Accession/Order Number: [id number] Exam Date: 01/12/2024 16:55 Report Date: 01/17/2024 06:21 At the request of: EMERALD HAGEN Procedure: XR cervical spine 2-3V EXAMINATION: XR cervical spine 2-3V HISTORY: cervical ubdicujlxpvjkU35.12 , neck pain, numbness in shouldersand fingers [...] Bruno M.D. Signed By:01/17/24622 DD/ 0 TD/TT: Master Esthetician: Authorizing ProviderResult TypeResult StatusEmerald Hagen MDCLINISYNC IMAGING Final Result documented in this encounter Visit Diagnoses Not on filedocumented in this encounter Additional Health Concerns Active ProblemsNoted DateDiagnosed DatePatient on antidepressant monitoring plan 4Baseline PHQ-904documented as of this encounter Care Teams Team MemberRelationshipSpecialtyStart DateEnd Date Emerald Hagen MD [address] [place] [address] [address] [place] [address] PCP - Medical [employer]10/23/1911 Emerald Hagen MD [address] [facility] [address] [place] [address] PCP - GeneralFamily Medicine08/30/22documented as of this encounter
--- OUTSIDE RECORDS SUMMARY | 2025-02-27 19:15 | XMS_ITS | Patient Health Record ---
Author Organization [facility] Address [address] [place] [address] Care Team Providers Care Change Number Operator Name Role Phone Ralph Radha Primary Care Provider Dagoberto Garsia Unavailable [phone] Kenya Peters Unavailable [phone] Allergies No Known Allergies Reason For Referral No Information Medications Medication SIG (Take, Route, Frequency, Duration) Notes Start Date End Date Status hydrOXYzine Pamoate 50 MG Capsule 1 capsule Oral twice a day; Duration: 30 days ActivebuPROPion HCl ER (XL) 300 MG Tablet Extended Release 24 HourOral; Duration: 30 DaysActivePropranolol HCl 10 MG Tablet1 tablet Orally twice a day; Duration: 30 days5ActivePrazosin HCl 2 MG Capsule1 capsule at bedtime Oral Once a day; Duration: 30 daystake with 1 mg capsuleActiveclomiPRAMINE HCl 50 MG Capsule2 capsule at bedtime Orally Once a day; Duration: 30 daysActive OLANZapine 2.5 MG TabletTAKE 1 TABLET BY MOUTH TWICE A DAY; Duration: 30Active tiZANidine HCl 4 MG Tablet1 tablet every 6 hrs prn Orally Once a dayActive Escitalopram Oxalate 20 MG TabletOral; Duration: 30 DaysActiveAdderall XR 30 MG Capsule Extended Release 24 Hour1 capsule in the morning with a 10 mg capsule Orally Once a dayActiveCyclobenzaprine HCl 5 MG TabletTAKE 1 TABLET BY MOUTH THREE TIMES A DAY FOR 14 DAYS Oral; Duration: 14 DaysActiveSingulair 10 MG Tablet1 tablet Orally Once a dayActiveTrelegy Ellipta 100-62.5-25 MCG/ACT Aerosol Powder Breath Activated1 puff Inhalation Once a dayActiveCephalexin 250 MG Capsule1 capsule Orally Once a dayActive Social History Tobacco Use: Social History Observation Description Date Details (start date - stop date) Former Smoker NA - NA Social History GeneralSocial InfoQuestionAnswerNotesTransition of Care:ER/UC/hospital since last office visit?Yes, report on [facility] for attempted suicide 08/14/24 Depression Screening (PHQ-9):Little interest or pleasure in doing thingsMore than half the daysFeeling down, depressed, or hopelessNearly every dayTrouble falling or staying asleep, or sleeping too muchNearly every dayFeeling tired or having little energyNearly every dayPoor appetite or overeatingMore than half the daysFeeling bad about yourself-or that you are a failure or have let yourself or your family downNearly every dayTrouble concentrating on things, such as reading the newspaper or watching televisionNearly every dayMoving or speaking so slowly that other people could have noticed. Or the opposite being so fidgetyor restless that you have been moving around a lot more than usualMore than half the daysThoughts that you would be better off , or of hurting yourself in some wayMore than half the days(Consider Suicide Assessment Risk) Total Krzkn52VdxhdhcstdsakVsyikp DepressionSubstance abuse/mental health issues of patient/familyPatient -Caffeine Use, AlcoholAbility to understand healthcare/treatmentPatient:FairSocial/Support Concerns:Patient:NoBehaviors affecting healthPoor/Risky Behaviors:Denies-Communication Barrier:Language Barrier?:NoDrug/Alcohol:Social InfoQuestionAnswerNotesAUDIT-C (Standard)Did you have a drink containing alcohol in the past year?Yes? How often did you have a drink containing alcohol in the past year?2 to 3 times a week (3 points)? How many drinks did you have on a typical day when you were drinking in the past year?5 or 6 drinks (2 points)? How often did you have six or more drinks on one occasion in the past year?2 to 3 times per week (3 points)Zthbau7Ylumfrucwpgedw PositiveTobacco Use:Social InfoQuestionAnswerNotesTobacco Control (Standard) Tobacco use:Former smoker? How long has it been since you last smoked?Greater than 10 years Problems Problem Type SNOMED Code ICD Code Onset Dates Problem Status W/U Status Risk Notes Problem Bipolar 1 disorder (556065145) Bipolar 1 disorder (F31.9) ActiveconfirmedProblemInsomnia (435465913)Insomnia, unspecified type (G47.00) ActiveconfirmedProblemAttention deficit hyperactivity disorder (040546416)ADHD (attention deficit hyperactivity disorder), combined type (F90.2)Activeconfirmed ProblemPosttraumatic stress disorder (78479039)PTSD (post-traumatic stress disorder) (F43.10)ActiveconfirmedProblemModerate recurrent major depression (69162491)Moderate episode of recurrent major depressive disorder (F33.1)Active confirmedProblemObsessive-compulsive disorder (627580919)Obsessive-compulsive disorder, unspecified type (F42.9)ActiveconfirmedProblemGeneralized anxiety disorder (78887220)Anxiety, generalized (F41.1)Activeconfirmed Vital Signs Heart Rate 95 /min 12/25/2024 Respiratory Rate20 /min12/06/20246930Tishkmla52 %12/25/2024lood pressure diastolic 88 mm Hg12/25/20245992Hhdile47 in12/25/2024lood pressure mm Hg 12/25/20248759Vkfwgq408.8 lbs12/25/2024BMI37.27 kg/m212/25/2024 Encounters Encounter Location Date Provider Diagnosis [facility] [address] [place] [address] 09/06/2024 [facility] [place] [address]/09/2024 [facility] [place] [address] 11/06/2024[facility] [place] [address]/[place] [address] [facility] [place] [address]/[facility] [place] [address]/[facility] [place] [address]/[facility] [place] [address]/[facility] [place] [facility] [address]/[facility] [place] [address]/[facility] [place] [address] 11/15/2024[facility] [place] [address]/[facility] [place] [address]/08/2024[place]y [place] [address] [place] [address]/Tracey HyltonBipolar 1 disorder F31.9 and Anxiety, generalized F41.1[facility] [address] [place] [address] 09/13/2024Tracey HyltonObsessive-compulsive disorder, unspecified type F42.9 ; Bipolar 1 disorder F31.9 ; Moderate episodeof recurrent major depressive disorder F33.1 ; ADHD (attention deficit hyperactivity disorder), combined type F90.2 and Insomnia, unspecified type G47.00[facility] W[address]we[address] [facility] [place] [address]/12/2024Tracey HyltonBipolar 1 disorder F31.9 ; Anxiety, generalized F41.1 ; Insomnia, unspecified type G47.00 and ADHD (attention deficit hyperactivity disorder), combined type F90.2[facility] [address] [place] [address]/10/2024Tracey HyltonInsomnia, unspecified type G47.00 and Bipolar 1 disorder F31.9[facility] [address] [place] [address] 12/06/2024Tracey HyltonBipolar 1 disorder F31.9[facility] [address] [place] [address]/03/2025Tracey HyltonAnxiety, generalized F41.1 ; Bipolar 1 disorder F31.9 and PTSD (post-traumatic stress disorder) F43.10 Assessments Encounter Date Diagnosis (ICD Code) Assessment Notes Treatment Notes Treatment Clinical Notes Section Notes 09/04/2024 Bipolar 1 disorder (ICD-10 - F31 .9) restart vraylar 1.5mg daily given 4 weeks from sample stock. states she has not taken vraylar 4.5 mg for awhile d/t cost would like disability paperwork filled out for leave of absence from work, she states she currentlyworks from home for the [employer]. Based on DSM V, this patient meets [...] Informed consent obtained: YES, we discussed the diagnosis/diagnoses, the treatment options, treatment(s) recommended vs. no treatment. We discussed risks and benefits of treatment options, treatmentrecommendations vs. no treatment. . Currently at low risk for self harm. Denies ongoing feelings of hopelessness. Denies ongoing suicidal ideation, intent or plan in session. . 09/04/2024nxiety, generalized (ICD-10 - F41.1) continue current medication [...] plan. f/u i 1 month and PRN 09/13/2024ipolar 1 disorder (ICD-10 - F31.9) increased vryalar [...] consented to the start/continuation of the treatment. 09/13/2024Obsessive-compulsive disorder, unspecified type (ICD-10 - F42.9) increased medication to 100mg daily. continue therapy weekly f/u in 3 weeks and PRN 09/30/2024ipolar 1 disorder (ICD-10 - F31.9) Refills for vrlorene FMLA paperwork to be completed May consider [...] tremors, muscle spasms, slowness of movement or jerkingof muscles. . Stable . The patient verbalizes [...] consented to the start/continuation of the treatment. 09/30/2024nxiety, generalized (ICD-10 - F41.1)Continue medication, potential side effects were discussed as [...] and counseling. f/u in 1 month and PRN10/28/2024ipolar 1 disorder (ICD-10 - F31.9) Increased Vraylar [...] consented to the start/continuation of the treatment. 10/28/2024Insomnia, unspecified type (ICD-10 - G47.00) refills fro Quetiapine 50mg QHS good sleep hygiene discussed. Avoid stimulants such as tv, electronic, exercises before bed. Relaxation techniques also discussed. pt enc to take 5mg to 10 mg melatonin. If symptoms persist will discuss prescription sleep aides. 12/25/2024ipolar 1 disorder (ICD-10 - F31.9) denies refills today FMLA paperwork to be completed adn RTW on 12-31-24 Patient will continue current treatment plan. Patient verbally acknowledges understanding instructions including medication education and has no further questions comments or concerns at this time. . Follow in 1 Month . Recommended treatment for Bipolar disorder includes FDA approved and OFF label medications: second generation antipsychotics and mood stabilizers.Second generation antipsychotic medications can causeheadache, drowsiness, agitation, dizziness, nausea, or extrapyramidal symptoms [...] consented to the start/continuation of the treatment. 12/25/2024nxiety, generalized (ICD-10 - F41.1)Anxiety stable. Will continue current medication. F/U 1month & PRN12/25/2024PTSD (post-traumatic stress disorder) (ICD-10 - F43.10) will trial increasing Prazosin to 3mg at bedtime, her nightmare/terrors have decreased but still having 3-4 per night. f/u in 1 month and PRN 09/13/2024Moderate episode of recurrent major depressive disorder (ICD-10 [...] Patient verbalized understanding, in agreement with plan. 12/06/2024ipolar 1 disorder (ICD-10 - F31.9) medications were discontinued while at rehab in [place]. will trial Olanzapine 2.5mg BID Patient will [...] consented to the start/continuation of the treatment. 09/30/2024Insomnia, unspecified type (ICD-10 - G47.00) Refilled Quetiapine good sleep hygiene discussed. Avoid stimulants such as tv, electronic, exercises before bed. Relaxation techniques also discussed. pt enc to take 5mg to 10 mg melatonin. If symptoms persist will discuss prescription sleep aides 09/30/2024DHD (attention deficit hyperactivity disorder), combined type (ICD-10 - F90.2) stopped adderal while off work on FMLA refilled Clonidine ADHD stable, patient denies unfavorable side effects such as CP, stomach aches, or sleep difficulties. Weight is stable. OARRS reviewed. Patient enjoys being in school. Continue current regimen. Refills will be sent at todays visit. Follow up in 3 months and PRN. 09/13/2024DHD (attention deficit hyperactivity disorder), combined type (ICD-10 - F90.2)ADHD stable, patient denies unfavorable side effects such as CP, stomach aches, or sleep difficulties. Weight is stable. OARRS reviewed. Patient enjoys being in school. Continue current regimen. Refills will be sent at todays visit. Follow up in 3 months and PRN.09/13/2024Insomnia, unspecified type (ICD-10 - G47.00)good sleep hygiene discussed. Avoid stimulants such as tv, electronic, exercises before bed. Relaxation techniques also discussed. pt enc to take 5mg to 10 mg melatonin. If symptoms persist will discuss prescription sleep aides Prescribed Seroquel 50mg at djeyzcj8212/06/2024OtherBody Mass Index: Care Instructions material was published, Body Mass Index: Care Instructions material was printed Plan Of Treatment Next Appt Details Provider Name:Radha sal, 03/10/2025 02:30:00 PM, [address] [place], [address], Insurance Providers Payer Name Payer Address Payer Phone Subscriber Number Group Number Insured Name Patient Relationship to Insured Coverage Start Date Coverage End Date [facility] [address] [address] [place] [address] [id number] Vanesa HARPER - patient is the [id number] 2024[facility] [address] [place] [phone], YESSICASelf - patient is the [id number] 2024 Medical (General) History Medical History History ICD Code HTN DEPRESSIIONANXIETYPTSDADHDOBESEASTHMAexcessive sweatingdigestive problems Surgical History Surgery Date(Month/Year) ANKLE SURGERY 05/2024 LAP AT CSECTION IVBQLYJDVAW05/2023CSECTION X 3
--- OUTSIDE RECORDS SUMMARY | 2025-02-27 19:15 | XMS_ITS | Encounter Summary ---
Author Organization [facility] Address [address] [place] [address] Care Team Providers Care Irrigation Supervisor Name Role Phone Emerald Sanchez MD Primary Care Provider [phone] Deena Osorio APRN Unavailable [phone] Darwin Starr DO Unavailable [phone] Source Comments In the event this information is protected by the Federal Confidentiality of Alcohol and Drug AbusePatient Records regulations: The Federal rules restrict any use of the information to criminally investigate or prosecute any alcohol or drug abuse patient.[facility] Encounter Details DateTypeDepartmentCare Team (Latest Contact Info)Cpgmnjczknx24/29/2025Results Follow-Up Ambulatory Surgery [address] [place] [address] [place] [address] [place] [address] Social History Tobacco UseTypesPacks/DayYears UsedDateSmoking Tobacco: NeverSmokeless Tobacco: NeverAlcohol UseStandard Drinks/WeekCommentsYes4 (1 standard drink = 0.6 oz pure alcohol)sociallyPHQ-2AnswerDate RecordedPHQ-2 dqqnk797UDIT-CAnswerDate RecordedFrequency of Alcohol ConsumptionNot on file02/25/2025Q2: How many drinks containing alcohol do you have on a typical day when you are drinking?Patient does not drink02/25/2025Frequency of Binge DrinkingNot on file02/25/2025rea Deprivation IndexAnswerDate RecordedNational Score (1-100), lower number is lower gats730910/17/2022State Score (1-10), lower number is lower nkbo377 Data from: https://www.neighborhoodatlas.medicine.[facility].edu/. Last address used for [address] [place] 2538010/17/2022CommentsNoSex and Gender Information ValueDate RecordedSex Assigned at BirthNot on fileLegal YidHbknvp17/03/2019 9:05 PM EDTGender YhjjkdhuCaibmr11/15/2022 8:30 AM ESTSexual OrientationNot on file documented as of this encounter Miscellaneous Notes * Telephone Encounter - Kenya Bernardo RN - 02/19/2025 11:[address] Peter, Please see pended lab orders dated for 6 months per your result message. Thank you, Ramya documented in this encounter Plan of Treatment NameTypePriorityAssociated DiagnosesOrder ScheduleCOMPREHENSIVE METABOLIC PANEL LabRoutine ENGLISH (nonalcoholic steatohepatitis) Expected: 08/20/2025 (Approximate), Expires: 11/19/2025OMPLETE BLOOD COUNT AND DIFFERENTIALLabRoutine ENGLISH (nonalcoholic steatohepatitis) Expected: 08/20/2025 (Approximate), Expires: 11/19/2025documented as of this encounter Goals GoalPatient Goal TypeAssociated ProblemsRecent ProgressPatient-Stated?Author Blood Pressure < 140/90 Blood Hfyyibrd017/82(02/25/2025 1:56 PM EST)Solo Barclay, MDdocumented as of this encounter Visit Diagnoses Diagnosis ENGLISH (nonalcoholic steatohepatitis)- Primary Other chronic nonalcoholic liver disease documented in this encounter Care Teams Team MemberRelationshipSpecialtyStart DateEnd Date Emerald Sanchez MD [address] [facility] [address] [place] [address] PCP - GeneralFamily Ufmxwcui10/4/19 Deena Osorio APRN 112 [facility] [address] [place] [address] ReferringFamily Bmtbnere67/11/24 Darwin Starr DO [address] [place] [address] ReferringOb/Gyn07/02/24documented as of this encounter
--- OUTSIDE RECORDS SUMMARY | 2025-02-27 19:15 | XMS_ITS | Encounter Summary ---
Author Organization [facility] Address [address] [facility] [place] [address] Care Team Providers Care Photogrammetric Tech Name Role Phone Emerald Hagen MD Unavailable Emerald Hagen MD Primary Care Provider [phone] Encounter Details DateTypeDepartmentCare Team (Latest Contact Info)Lunsiosplwa40/24/2024Clinisync Result Encounter [facility] External Department Unsolicited Provider, [...] relatives?Once a week05/09/2024How often do you attend moravian or faith services?Never05/09/2024Do you belong to any clubs or organizations such as moravian groups, unions, fraternal or athletic groups, or school groups?Yes05/09/2024How often do you attend meetings of the clubs or organizations you belong to?Never05/09/2024re you , , , , never , or living with a partner?Pganliw6005/09/2024UDIT-C AnswerDate RecordedQ1: How often do you have a drink containing alcohol?2-4 times a month05/09/2024Q2: How many drinks containing alcohol do you have on a typical day when you are drinking?1 or Q3: How often do you have six or more drinks on one occasion?Less than ygsqsvh2305/09/2024Overall Financial Resource Strain (CARDIA)AnswerDate RecordedHow hard is it for you to pay for the very basics like food, housing, medical care, and heating?Not hard at all 05/09/2024PHQ-2AnswerDate RecordedPatient Health Questionnaire-2 Score4 01/06/2025[facility] [place] [facility] Occup[facility] Health - Occupational Stress QuestionnaireAnswerDate [...] homeless or living in a mcfp (including now)?No 05/09/2024CommentsNoSex and Gender InformationValueDate RecordedSex Assigned at BirthNot on fileLegal FbyYkynlk32/15/2023 7:29 PM EDTGender Identity Not on fileSexual OrientationNot on filedocumented as of this encounter Functional Status * AUDIT-C ScoreAnswerDate of QxtncqibtkMxmxcf431/16/2025 9:30 AM Jenaro Rico * Q1: How [...] drinks on one occasion?AnswerDate of AssessmentAuthorLess than pkxmhgc7105/09/2024 9:30 AM Jacky Generic * Over the past 2 weeks, how often have you been bothered by any of the following problems?QuestionAnswerDate of AssessmentAuthorLittle interest or pleasure in doing thingsMore than half the days01/06/2025 10:55 AM Alex CHAVIRAeling down, depressed, or hopelessMore than half the days01/06/2025 10:55 AM Herbert CHAVIRAnt Health Questionnaire-2 Rydac252 10:55 AM BALDO CHAVIRA * QuestionAnswerDate of [...] all01/06/2025 10:55 AM Lacy CHAVIRA Health Questionnaire-9 Ydhyn4338 10:55 AM BALDO CHAVIRA * If you checked off any problems on this questionnaire so far,QuestionAnswer Date of AssessmentAuthorHow difficult have these problems made it for you to do your work, take care of things at home, or get along with other people?Very uqmlpbzcq23/15/2025 10:55 AM BALDO CHAVIRA documented as of this encounter Plan of Treatment DateTypeDepartmentCare Team (Latest Contact Info)Bfzbrrmddeo81/10/2025 4:30 PM ESTClinical Support [facility] [address] [place] [phone] Milton Duvall, DPM FACFAS [address] [place] [address] 03/14/2025 11:40 AM ESTOffice Visit [facility] [address] [place] [address] Jatin Cabrera MD [address] [address] 03/18/2025 9:00 AM ESTOffice Visit [facility] [address] [facility] [address] [place] [address] Emerald Hagen MD [address] [facility] [address] [place] [address] documented as of this encounter Goals GoalPatient Goal TypeAssociated ProblemsRecent ProgressPatient-Stated?Author Help patient manage antidepressant medication Care PlanPatient on antidepressant monitoring Emerald Rain MD Baseline PHQ-9 Care PlanBaseline PHQ-9Emerald Underwood, MDdocumented as of this encounter Procedures Procedure NamePriorityDate/TimeAssociated DiagnosisCommentsMR ANKLE RIGHT WO IV IOIFSQVK76/24/2024 9:08 AM EST documented in this encounter Results * MR ankle right wo IV contrast (03/17/2024 9:08 AM EST)Anatomical Region LateralityModalityLower Extremities, AnkleRightMagnetic ResonanceSpecimen (Source)Anatomical Location / LateralityCollection Method / VolumeCollection TimeReceived Time03/17/2024 9:08 AM EST Narrative 03/17/2024 9:11 AM EST [facility] ?[address] ? [place] [address] ? Magnetic Resonance Report ? Signed ? Patient: MEREDITH,ORION A ?MR#: [id number] ?? : 1990 ?Acct:[id number] ?? Age/Sex: 33 / F ?ADM Date: 11/21/24 ?? Loc: MRI ? Attending : Keegan Navas M.D. ? Ordering Physician: Keegan Navas M.D. ?? Date of Service: 03/14/24 ?? Procedure(s): MR ankle RT wo con ?? Accession Number(s): [id number] ? cc: EMERALD HAGEN ; Keegan Navas M.D. ? [facility] ? [address] [facility] ? [place] [address] ? Patient Name: ?? ORIONISABELL BARNETT ? MRN: [facility]:[id number] ? date: 1990 ?Sex: F ?? Assigned Patient Location: MRI ?? Current Patient Location: ? Accession/Order Number: [id number] ?? Exam Date: 03/14/2024 ??15:04 ?Report Date: 03/17/2024 ??09:08 ? At the request of: ?? KEEGAN NAVAS ? Procedure: ??MR ankle RT wo con ? HISTORY: Right ankle pain since an injury on 01/10/2024. Pain and swelling ?? along ?? the medial and lateral aspect of the ankle. Sprain of talofibular ligament. ? MR ankle RT wo con: 03/14/2024 3:04 PM EST ? COMPARISON: Radiographs right ankle 03/04/2024 and radiographs right foot and ?? ankle 01/10/2024. ? TECHNIQUE: Multiplanar, multisequence MRI images of the ankle were obtained ?? without contrast. ? FINDINGS: ? LIGAMENTS: The anterior talofibular ligament appears grossly intact. However, ?? there is an ovoid well-corticated 6 mm ossific focus again seen along the ?? anteroinferior aspect of the lateral malleolus at the expected attachment of ?? the anterior talofibular ligament as seen on the prior radiographs. The ?? calcaneofibular ligament, posterior talofibular ligament, and distal ?? tibiofibular ligaments appear within normal limits. The deltoid ligament ?? complex appears moderately thickened and of intermediate signal intensity on ?? the proton density fat-saturated sequence. The flexor retinaculum along the ?? medial aspect of the medial malleolus appears moderately thickened and of ?? intermediate signal intensity with a small amount of adjacent soft tissue ?? edema. ? TENDONS: There is evidence of a moderate grade longitudinal partial-thickness ?? tear involving the posterior aspect of the inframalleolar portion of the ?? peroneus brevis tendon spanning approximately 2.5 cm in length as best seen on ? the axial oblique proton density fat-saturated images. The other tendons of ?? the ?? ankle appear within normal limits. There is a small amount of fluid within the ? retromalleolar and inframalleolar portion of the posterior tibialis tendon ?? sheath. ? SINUS TARSI AND TARSAL TUNNEL: No space-occupying mass is seen in the tarsal ?? tunnel or the sinus tarsi. ? BONES AND JOINTS: The bone marrow signal intensity is age appropriate. No ?? unstable osteochondral defect of the tibiotalar joint is identified. There is ?? a ?? small tibiotalar joint effusion. There is a small area of decreased T1 and ?? increased STIR signal intensity within the subchondral bone of the medial ?? talar ?? dome. This measures approximately 4 x 7 mm in transverse and AP dimension. No ?? overlying chondral abnormality is seen. There is a moderate amount of bone ?? marrow edema involving the medial aspect of the body and neck of the talus. ?? There is also a small amount of bone marrow edema within the posteromedial ?? aspect of the tibial plafond. There is a small amount of fluid within a joint ?? recess posterior to the posterior subtalar joint. ? PLANTAR FASCIA: There is no abnormal thickening or abnormal signal intensity ?? of ?? the plantar fascia and there is no surrounding soft tissue edema to suggest ?? plantar fasciitis. ? MR/MR ankle RT wo con ?? IMPRESSION: ? 1. There are MRI findings compatible with a moderate grade sprain or avulsion ?? injury of the flexor retinaculum from the medial malleolus with adjacent soft ?? tissue edema in this region. Therefore, the small linear focus of ossification ? projecting along the medial aspect of the medial malleolus on the prior ?? radiographs is most likely secondary to either a small avulsion fracture or ?? heterotopic ossification in this region. ?? 2. Probable subacute grade 2 sprain of the deltoid ligament complex. The other ? ligaments of the ankle including the anterior talofibular ligament appear ?? grossly intact. However, there is a 6 mm posttraumatic ossicle again seen ?? along ?? the anteroinferior aspect of the lateral malleolus at the expected attachment ?? of the anterior talofibular ligament compatible with the sequela of remote ?? trauma to this region. ?? 3. There is evidence of a probable low-grade 4 x 7 mm osteochondral injury of ?? the medial talar dome. There are also bone contusions involving the medial ?? aspect of the body and neck of the talus and a small bone contusion of the ?? posteromedial aspect of the tibial plafond. There is an associated small ?? tibiotalar joint effusion. ?? 4. There is a moderate grade longitudinal partial-thickness tear of the ?? posterior aspect of the inframalleolar portion of the peroneus brevis tendon ?? spanning approximately 2.5 cm in length. The other tendons of the ankle appear ? within normal limits. ? Electronically authenticated by: KARISSA ??READER ?? Date: 03/17/2024 ??09:08 ? Dictated By: ?Vienna,Karissa Cruz ? Signed By: ?03/17/24 0911 ? DD/ 0908 ? TD/TT: ? Warehouse Checker: Procedure Note Radiology, Radiologist, MD - 03/17/2024 [place] [address] Magnetic Resonance Report Signed Patient: ORION BARNETT AMR#: [id number] : 1990Acct:[id number] Age/Sex: 33 / FADM Date: 03/14/24 Loc: MRI Attending Dr: Keegan Navas M.D. Ordering Physician: Keegan Navas M.D. Date of Service: 03/14/24 Procedure(s): MR ankle RT wo con Accession Number(s): [id number] cc: EMERALD HAGEN ; Keegan Navas M.D. The [address] [address] Patient Name: ORION BARNETT MRN: [id number] date: 1990 Sex: F Assigned Patient Location: MRI Current Patient Location: Accession/Order Number: [id number] Exam Date: 03/14/2024 15:04 Report Date: 03/17/2024 09:08 At the request of: KEEGAN NAVAS Procedure: MR ankle RT wo con [...] ankleappear within normal limits. Electronically authenticated by: KARISSA CORTES Date: 03/17/2024 09:08 Dictated By: Karissa Cortes M.D. Signed By:03/17/24910 DD/ 7 TD/TT: Warehouse Checker: Authorizing ProviderResult TypeResult StatusGeneric External Data ProviderIMG MRI PROCEDURESFinal Result documented in this encounter Visit Diagnoses Not on filedocumented in this encounter Additional Health Concerns Active ProblemsNoted DateDiagnosed DatePatient on antidepressant monitoring plan 4Baseline PHQ-904documented as of this encounter Care Teams Team MemberRelationshipSpecialtyStart DateEnd Date Emerald Hagen MD [address] [place] [address] PCP - Medical [place] [employer]10/23/1911 Emerald Hagen MD [address] [place] [address] PCP - GeneralFamily Medicine08/30/22documented as of this encounter
--- OUTSIDE RECORDS SUMMARY | 2025-02-27 19:15 | XMS_ITS | Encounter Summary ---
Author Organization [facility] Address [address] [facility] [place] [address] Care Team Providers Care Kiln Mechanic Name Role Phone Emerald Sanchez MD Unavailable Emerald Sanchez MD Primary Care Provider [phone] Encounter Details DateTypeDepartmentCare Team (Latest Contact Info)Larpfmqapyf51/27/2024Clinisync Result Encounter [facility] External Department Unsolicited Provider, [...] week05/09/2024How often do you attend faith or latter day services?Never05/09/2024Do you belong to any clubs or organizations such as faith groups, unions, fraternal or athletic groups, or school groups?Yes05/09/2024How often do you attend meetings of the clubs or organizations you belong to?Never05/09/2024re you , , , , never , or living with a partner?Tknktho1305/09/2024UDIT-C AnswerDate RecordedQ1: How often do you have a drink containing alcohol?2-4 times a month05/09/2024Q2: How many drinks containing alcohol do you have on a typical day when you are drinking?1 or Q3: How often do you have six or more drinks on one occasion?Less than ofatpjc7205/09/2024Overall Financial Resource Strain (CARDIA)AnswerDate RecordedHow hard is it for you to pay for the very basics like food, housing, medical care, and heating?Not hard at all 05/09/2024PHQ-2AnswerDate RecordedPatient Health Questionnaire-2 Score4 01/06/2025[facility] [place] [facility] Occup[facility] Health - Occupational Stress QuestionnaireAnswerDate [...] InformationValueDate RecordedSex Assigned at BirthNot on fileLegal BtcLmquiz88/15/2023 7:29 PM EDTGender Identity Not on fileSexual OrientationNot on filedocumented as of this encounter Functional Status * AUDIT-C ScoreAnswerDate of UerunwngxsVcetpb034/16/2025 9:30 AM Jenaro Rico * Q1: How [...] drinks on one occasion?AnswerDate of AssessmentAuthorLess than gwqayyb5905/09/2024 9:30 AM Jacky Generic * Over the past 2 weeks, how often have you been bothered by any of the following problems?QuestionAnswerDate of AssessmentAuthorLittle interest or pleasure in doing thingsMore than half the days01/06/2025 10:55 AM Alex CHAVIRAeling down, depressed, or hopelessMore than half the days01/06/2025 10:55 AM Herbert CHAVIRAnt Health Questionnaire-2 Iqnet929 10:55 AM BALDO CHAVIRA * QuestionAnswerDate of [...] all01/06/2025 10:55 AM Lacy CHAVIRA Health Questionnaire-9 Oxque5021 10:55 AM BALDO CHAVIRA * If you checked off any problems on this questionnaire so far,QuestionAnswer Date of AssessmentAuthorHow difficult have these problems made it for you to do your work, take care of things at home, or get along with other people?Very tcihlknde86/15/2025 10:55 AM BALDO CHAVIRA documented as of this encounter Plan of Treatment DateTypeDepartmentCare Team (Latest Contact Info)Oqfkcounqyk13/10/2025 4:30 PM ESTClinical Support [facility] [address] [place] [phone] Milton Duvall, DPM [facility] [address] [place] [address] 03/14/2025 11:40 AM ESTOffice Visit [facility] [address] [place] [address] Jatin Cabrera MD [address] [address] 03/18/2025 9:00 AM ESTOffice Visit [facility] [address] [facility] [address] [place] [phone] Emerald Sanchez MD [address] [facility] [address] [place] [address] documented as of this encounter Goals GoalPatient Goal TypeAssociated ProblemsRecent ProgressPatient-Stated?Author Help patient manage antidepressant medication Care PlanPatient on antidepressant monitoring Emerald Rain MD Baseline PHQ-9 Care PlanBaseline PHQ-9Emerald Underwood, MDdocumented as of this encounter Procedures Procedure NamePriorityDate/TimeAssociated DiagnosisCommentsECG 12-LEAD12/19/2023 1:51 PM EDT documented in this encounter Results * ECG 12 lead (12/19/2023 1:51 PM EDT)Specimen (Source)Anatomical Location / LateralityCollection Method / VolumeCollection TimeReceived Time12/19/2023 1:51 PM EDT Narrative [facility] - 12/30/2023 6:45 PM EDT Ventricular Rate : 88 BPM Atrial Rate ?: 88 ?BPM P-R Interval ? : 148 ? ms QRS Duration ? : 78 ?ms Q-T Interval ? : 380 ? ms QTC Calculation(Jamel) ?: 459 ? ms Calculated P Bethelridge ?: 62 ?degrees Calculated R Bethelridge ?: 55 ?degrees Calculated T Bethelridge ?: 38 ?degrees NORMAL SINUS RHYTHM NORMAL ECG Confirmed by MD BAH HEBA ([id number]) on 12/30/2023 6:45:12 PM NAME : MEREDITHORION PID : [id number] : 1990 ?? Gender : Female Race : Other ORD : [id number] ? Procedure Date : Dec 19 2023 13:51:58 Edit Date : Dec 30 2023 18:45:15 ? Diagnosis: NORMAL SINUS RHYTHM NORMAL ECG ? Confirmed by MD BAH HEBA ([id number]) on 12/30/2023 6:45:12 PM ? Test Reason : ? Location : 314 : J14 ??J1-4 ? Overread By : MD BAH HEBA Edited By : MD BAH HEBA Referred By : , Acquired by : CHELSEY JOSEPH Procedure Note Radiology, Radiologist, MD - 12/30/2023 Ventricular Rate : 88 BPM Atrial Rate : 88 BPM P-R Interval : 148 ms QRS Duration : 78 ms Q-T Interval : 380 ms QTC Calculation(Bazett) : 459 ms Calculated P Bethelridge : 62 degrees Calculated R Bethelridge : 55 degrees Calculated T Bethelridge : 38 degrees NORMAL SINUS RHYTHM NORMAL ECG Confirmed by MD BAH HEBA ([id number]) on 12/30/2023 6:45:12 PM NAME : OROIN BARNETT PID : [id number] : 1990 Gender : Female Race : Other ORD : [id number] Procedure Date : Dec 19 2023 13:51:58 Edit Date : Dec 30 2023 18:45:15 Diagnosis: NORMAL SINUS RHYTHM NORMAL ECG Confirmed by MD BAH HEBA ([id number]) on 12/30/2023 6:45:12 PM Test Reason : Location : 314 : 14 J1-4 Overread By : MD BAH HEBA Edited By : MD BAH HEBA Referred By : , Acquired by : CHELSEY JOSEPH Authorizing ProviderResult TypeResult StatusGeneric External Data ProviderECG ORDERABLESFinal ResultPerforming OrganizationAddressCity/State/ZIP CodePhone Number [facility] documented in this encounter Visit Diagnoses Not on filedocumented in this encounter Additional Health Concerns Active ProblemsNoted DateDiagnosed DatePatient on antidepressant monitoring plan 4Baseline PHQ-904documented as of this encounter Care Teams Team MemberRelationshipSpecialtyStart DateEnd Date Emerald Sanchez MD [address] [place] [address] PCP - Medical [place] [employer]10/23/1911 Emerald Sanchez MD [address] [place] [address] PCP - GeneralFamily Medicine08/30/22documented as of this encounter
--- OUTSIDE RECORDS SUMMARY | 2025-02-27 19:15 | XMS_ITS | Continuity of Care Document ---
Author Organization [facility] Address [address] [address] Insurance Providers Payer Plan Claims Address Claims Phone Policy Number Group Number Relation Employer Guarantor Name Guarantor Guarantor Address Guarantor Phone [employer] [address] [place] [id number] Belgica Mcclellan [place] [id number] Medical [facility] [address], [place] [address]vpd:[phone] [id number] Eleuterio [address] [address] [address], [place] [id number] SelfYessica A [address] [id number] Problems Condition ICD9 code ICD10 code SNOMED code Start Date End Date S tatus Encounter for screening for other metabo lic disorders Z13.228 Results No Results Allergies, adverse reactions, alerts No known allergies and adverse reactions Medications No administered medications reported Vital Signs No vital signs reported Social History No smoking Hx information available
--- OUTSIDE RECORDS SUMMARY | 2025-02-27 19:15 | XMS_ITS | Clinical Summary ---
Author Organization [place] [facility] Address [id number] [address] [place] [address] Care Team Providers Care Apn Name Role Phone Unavailable Primary Care Provider Unavailabl e Social History Tobacco UseTypesPacks/DayYears UsedDateSmoking Tobacco: Never AssessedChildcare AnswerDate FvlfgxisRorgihvynMviznia18/12/2019EmploymentAnswerDate Recorded EgmscadhhgMjjwbeg12/12/2019Purpose - LifeAnswerDate RecordedPurpose and direction in smabCfiziby55/11/2021CommentsUnknownSex and Gender InformationValueDate RecordedSex Assigned at BirthNot on fileLegal SexFemale 11/27/2014 12:08 PM EDTGender IdentityNot on fileSexual OrientationNot on file Plan of Treatment Health MaintenanceDue DateLast DoneCommentsDepression Lsxtlhvms30/07/2001Tobacco Ggjpexuwq67/07/2001Adult BMI Xvgwkmdcl15/07/2007DTaP,Tdap and Td Vaccines (1 - Tdap)09/29/2007Pap Smear2009Influenza Gdgetcb4912/23/2024 Medical Devices Not on file Insurance
== END 2025-02-27 19:06 | disposition home or self-care (01) ==
LOC: LAB 19:05
PROVIDERS: PCP Family Medicine; Visit Provider Physician Assistant
DX: Z01.419 Encounter for gynecological examination (general) (routine) without abnormal findings (principal)
CPT/HCPCS: 87624; 88175

== ENCOUNTER 2025-03-27 11:18 | Emergency (ER) | payer OTHER, SELFPAY ==
--- OUTSIDE RECORDS SUMMARY | 2024-03-25 06:20 | XMS_ITS ---
Author Organization [facility] Address [address] [place] [address] Care Team Providers Care Store Warehouse Associate Name Role Phone Keegan Trujillo [facility] [phone] REASON FOR VISIT RIGHT ANKLE PAIN Encounters Encounter Location Date Provider Diagnosis [facility] [address] [facility] [address] [place] [address] 03/25/2024 Keegan Trujillo Plan Of Treatment No Information Progress Notes * MEREDITHREJINOEDOB: 9 (34 yo F)Acc No.[id number]:03/25/2024 Patient:?LILI HARPERCA :?Keegan Trujillo MDDOB:1990???Age:33 Y ???Sex:FemaleDate:4Phone:[phone]:[phone] Subjective: * Chief Complaints: * 1 . RIGHT ANKLE PAIN. * Medical History: Objective: * Vitals: Assessment: Plan: * Treatment: Forms: * Images: * Electronic signature of Keegan Trujillo MD on 03/27/2025 at 11:45 AM ESTSign off status: Pending * Provider: Rodney Trujillo MD Date: 05/26/2023 Generated for Printing/Faxing/eTransmitting on:?03/27/2025 11:45 AM EST
--- OUTSIDE RECORDS SUMMARY | 2024-04-01 04:50 | XMS_ITS ---
Author Organization [facility] Address [address] [place] [address] Care Team Providers Care Lip Cutter Name Role Phone Keegan Trujillo [facility] [phone] REASON FOR VISIT RIGHT ANKLE PAIN Encounters Encounter Location Date Provider Diagnosis [facility] [address] [facility] [place] [address] 04/01/2024 Keegan Trujillo Plan Of Treatment No Information Progress Notes * MEREDITHREJINOEDOB: 9 (34 yo F)Acc No.[id number]:04/01/2024 Patient:?LILI HARPERCA :?Keegan Trujillo MDDOB:1990???Age:33 Y ???Sex:FemaleDate:4Phone:[phone]:[phone] Subjective: * Chief Complaints: * 1 . RIGHT ANKLE PAIN. * Medical History: Objective: * Vitals: Assessment: Plan: * Treatment: Forms: * Images: * Electronic signature of Keegan Trujillo MD on 03/27/2025 at 11:46 AM ESTSign off status: Pending * Provider: Rodney Trujillo MD Date: 1 06/02/2023 Generated for Printing/Faxing/eTransmitting on:?03/27/2025 11:46 AM EST
--- OUTSIDE RECORDS SUMMARY | 2024-04-08 03:15 | XMS_ITS ---
Author Organization The [facility] in [place] Address [address] [place] [address] Care Team Providers Care Endoscopy Technician Name Role Phone Laura FRIEDMAN, Emerald Primary Care Provider Bernardo Busch Unavailable [phone] REASON FOR VISIT RT ankle arthroscopy Encounters Encounter Location Date Provider Diagnosis [facility] [address] [place] [id number] 04/08/2024 Bernardo Duong Plan Of Treatment No Information Progress Notes * ANIBAL HannahbiancaDOB: [birth year] (34 yo F)Acc No.[id number]:04/08/2024 UNLOCKED PROGRESS NOTE Patient:Hannah HARTsica :?Bernardo Duong DPM, MSDOB:1990???Age: 33 Y???Sex:FemaleDate:04/08/2024hone:[phone]:[address]-[phone]:Emerald Sanchez MD * * Electronic signature of Bernardo Duong DPM on 03/27/2025 at 11:47 AM ESTSign off status: PendingVisit Status:?CANC (Cancelled) * Provider: Palomo Duong DPM, MS Date: 1 06/09/2023 Generated for Printing/Faxing/eTransmitting on:?03/27/2025 11:47 AM EST
--- OUTSIDE RECORDS SUMMARY | 2024-10-30 04:15 | XMS_ITS ---
Author Organization [facility] Address [address] [place] [address] Care Team Providers Care Ward Helper Name Role Phone Radha Rosas Primary Care Provider REASON FOR VISIT BH F/U Encounters Encounter Location Date Provider Diagnosis [facility] [address] [place] [address] 10/30/2024 Radha Rosas Plan Of Treatment No Information Progress Notes * ORION HARPER ADOB: [birth year] (34 yo F)Acc No.[id number]:10/30/2024 Behavioral Health Patient: REJI SIMONNOE Mcclellan :?Radha Rosas CNPDOB:1990???Age:34 Y ???Sex:FemaleDate:10/30/2024Phone:[phone]:NADEGE QUEEN [id number] Subjective: * Chief Complaints: * B H F/U * Electronic signature of SHYANNE Krueger on 03/27/2025 at 07:54 AM ESTSign off status: Pending * Provider: Mary Ellen Rosas CNP Date: 0 10/30/2024 Generated for Printing/Faxing/eTransmitting on:?03/27/2025 07:54 AM EST
--- OUTSIDE RECORDS SUMMARY | 2024-11-15 06:00 | XMS_ITS ---
Author Organization [employer] es Address [address] [place] [address] Care Team Providers Care Waste Reduction Coordinator Name Role Phone Radha Rosas Primary Care Provider [phone] REASON FOR VISIT BH F/U Encounters Encounter Location Date Provider Diagnosis [facility] [place] [address] [place] [address] 11/15/2024 Radha Rosas Plan Of Treatment No Information Progress Notes * ORION HARPRE ADOB: [birth year] (34 yo F)Acc No.[id number]:11/15/2024 Behavioral Health Patient: REJI SIMONSICA Eleuterio :?Radha Rosas CNPDOB:1990???Age:34 Y ???Sex:FemaleDate:11/15/2024Phone:[phone]:NADEGE QUEEN [id number] Subjective: * Chief Complaints: * B H F/U Billing Information: * Procedure Codes: * Electronic signature of SHYANNE Krueger on 03/27/2025 at 07:54 AM ESTSign off status: Pending * Provider: Mary Ellen Rosas CNP Date: 0 11/15/2024 Generated for Printing/Faxing/eTransmitting on:?03/27/2025 07:54 AM EST
--- OUTSIDE RECORDS SUMMARY | 2024-12-06 03:30 | XMS_ITS ---
Author Organization [employer] es Address [address] [place] [address] Care Team Providers Care Adult Daycare Coordinator Name Role Phone Radha Rosas Primary Care Provider [phone] Encounters Encounter Location Date Provider Diagnosis [facility] [address] [place] [address] 12/06/2024 Radha Rosas Plan Of Treatment No Information Progress Notes * ORION HARPER ADOB: [birth year] (34 yo F)Acc No.[id number]:12/06/2024 Behavioral Health Patient: REJI SIMONNOE Mcclellan :?Radha Rosas CNPDOB:1990???Age:34 Y ???Sex:FemaleDate:12/06/2024Phone:[phone]:NADEGE QUEEN [id number] Billing Information: * Procedure Codes: * Electronic signature of SHYANNE Krueger on 03/27/2025 at 07:54 AM ESTSign off status: Pending * Provider: Mary Ellen Rosas CNP Date: 0 12/06/2024 Generated for Printing/Faxing/eTransmitting on:?03/27/2025 07:54 AM EST
--- OUTSIDE RECORDS SUMMARY | 2024-12-27 05:15 | XMS_ITS ---
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 [place] [address] [place] [address] 12/27/2024 Radha Rosas Plan Of Treatment No Information Progress Notes * ORION HARPER ADOB: [birth year] (34 yo F)Acc No.[id number]:12/27/2024 Behavioral Health Patient: REJI SIMONSIISABELL Mcclellan :?Radha Rosas CNPDOB:1990???Age:34 Y ???Sex:FemaleDate:12/27/2024Phone:[phone]:[id number] Subjective: * Chief Complaints: * B H F/U * Electronic signature of SHYANNE Krueger on 03/27/2025 at 07:54 AM ESTSign off status: Pending * Provider: Mary Ellen Rosas CNP Date: 0 12/27/2024 Generated for Printing/Faxing/eTransmitting on:?03/27/2025 07:54 AM EST
--- OUTSIDE RECORDS SUMMARY | 2025-01-22 10:45 | XMS_ITS ---
Author Organization [employer] es Address [address] [place] [address] Care Team Providers Care Etl Programmer Name Role Phone Radha Rosas Primary Care Provider [phone] REASON FOR VISIT BH 1 month f/u Encounters Encounter Location Date Provider Diagnosis [facility] [place] [address] [place] [address] 01/22/2025 Radha Rosas Plan Of Treatment No Information Progress Notes * ORION HARPER ADOB: [birth year] (34 yo F)Acc No.[id number]:01/22/2025 Behavioral Health Patient: REJI SIMONNOE Mcclellan :?Radha Rosas CNPDOB:1990???Age:34 Y ???Sex:FemaleDate:01/22/2025Phone:[phone]:[place] [id number] Subjective: * Chief Complaints: * B H 1 month f/u * Electronic signature of SHYANNE Krueger on 03/27/2025 at 07:54 AM ESTSign off status: Pending * Provider: Mary Ellen Rosas CNP Date: Generated for Printing/Faxing/eTransmitting on:?03/27/2025 07:54 AM EST
--- OUTSIDE RECORDS SUMMARY | 2025-01-31 11:15 | XMS_ITS ---
Author Organization [employer] es Address [address] [place] [address] Care Team Providers Care Research Program Intern Name Role Phone Radha Rosas Primary Care Provider REASON FOR VISIT rescheduled from 01/22 Encounters Encounter Location Date Provider Diagnosis [facility] [address] [place] [address] 01/31/2025 Radha Rosas Plan Of Treatment No Information Progress Notes * ORION HARPER ADOB: [birth year] (34 yo F)Acc No.[id number]:01/31/2025 Behavioral Health Patient: REJI SIMONNOE Mcclellan :?Radha Rosas CNPDOB:1990???Age:34 Y ???Sex:FemaleDate:01/31/2025Phone:[phone]:[place] [id number] Subjective: * Chief Complaints: * R escheduled from 01/22 Billing Information: * Procedure Codes: * Electronic signature of SHYANNE Krueger on 03/27/2025 at 07:54 AM ESTSign off status: Pending * Provider: Mary Ellen Rosas CNP Date: Generated for Printing/Faxing/eTransmitting on:?03/27/2025 07:54 AM EST
--- OUTSIDE RECORDS SUMMARY | 2025-03-14 11:40 | XMS_ITS | Encounter Summary ---
Author Organization [facility] Address [address] [place] [address] Care Team Providers Care Working Supervisor Name Role Phone Emerald Sanchez MD Unavailable Emerald Sanchez MD Primary Care Provider [phone] Encounter Details DateTypeDepartmentCare Team (Latest Contact Info)Ekejfzgcdje06/21/2025 11:40 AM ESTOffice Visit [facility] [address] [facility] [address] [place] [phone] Jatin Cabrera MD [address] [place] [address] [place] [address] Left foot drop (Primary Dx); Acute non intractable tension-type headache Social History Tobacco UseTypesPacks/DayYears UsedDateSmoking Tobacco: Every [...] relatives?Once a week05/09/2024How often do you attend oriental orthodox or nondenominational services?Never05/09/2024Do you belong to any clubs or organizations such as oriental orthodox groups, unions, [employer] or athletic groups, or school groups?Yes05/09/2024How often do you attend meetings of the clubs or organizations you belong to?Never05/09/2024re you , , , , never , or living with a partner?Bpyhnyo1205/09/2024 AUDIT-CAnswerDate RecordedQ1: How often do you have a drink containing alcohol? 2-4 times a month05/09/2024Q2: How many drinks containing alcohol do you have on a typical day when you are drinking?1 or Q3: How often do you have six or more drinks on one occasion?Less than paybchn3305/09/2024Overall Financial Resource Strain (CARDIA)AnswerDate RecordedHow hard is it for you to pay for the very basics like food, housing, medical care, and heating?Not hard at all 05/09/2024PHQ-2AnswerDate RecordedPatient Health Questionnaire-2 Score4 01/06/2025[facility] - Occupational Stress QuestionnaireAnswerDate [...] steady place to sleep or slept in [facility] (including now)?No04/18/2023Housing Stability Vital SignAnswerDate RecordedIn the last 12 months, was there a time when you were not able to pay the mortgage or rent on time?No05/09/2024In the past 12 months, how many times have you moved where you were living?t any time in the past 12 months, were you homeless or living in a intermediate (including now)?No 05/09/2024CommentsNoSex and Gender InformationValueDate RecordedSex Assigned at BirthNot on fileLegal HrxXsasrq48/15/2023 7:29 PM EDTGender Identity Not on fileSexual OrientationNot on filedocumented as of this encounter Progress Notes * Jatin Cabrera MD - 03/14/2025 11:40 AM EST Images from the original note were not included. Subjective Belgicatuyet Barnett is a 34 y.o. female who presents for a follow up for back pain, migraine, and leftfoot drop. History of Present Illness The patient is a 34-year-old female who presents for evaluation of foot drop. She reports experiencing episodes of falling, which she attributes to her foot rolling out. This issue is particularly noticeable after prolonged periods of walking when she experiences fatigue and weakness in her foot. The onset of these symptoms was noted following a fall on 01/10/2024. She has been engaged in physical therapy for foot drop but reports no significant improvement. She has also received steroid injections in her back as part of her treatment regimen. MEDICATIONS PREVIOUS MEDS: Prednisone Review of Systems Constitutional: Negative for chills, diaphoresis, fatigue and fever. HENT: Negative for ear pain, tinnitus and trouble swallowing. Eyes: Negative for photophobia and visual disturbance. Respiratory: Negative for cough and shortness of breath. Cardiovascular: Negative for chest pain, palpitations and leg swelling. Gastrointestinal: Negative for abdominal pain and nausea. Genitourinary: Negative for difficulty urinating, dysuria, pelvic pain and urgency. Musculoskeletal: Positive for back pain. Negative for arthralgias, myalgias, neck pain and neck stiffness. Neurological: Positive for numbness. Negative for tremors, weakness, light- headedness and headaches. Psychiatric/Behavioral: Negative for agitation, confusion and suicidal ideas. Answers submitted by the patient for this visit: Follow Up Appointment on 03/14/2025 11:[address] Jatin Cabrera Back Pain Questionnaire (Submitted on 03/13/2025) Chief Complaint: Back pain Chronicity: chronic Onset: more than 1 year ago Frequency: constantly Progression since onset: gradually worsening Pain location: lumbar spine, sacro-iliac, thoracic spine Pain quality: aching, shooting Radiates to: left foot, left knee, left thigh Pain - numeric: 7/10 Pain is: the same all the time Aggravated by: position Stiffness is present: all day bladder incontinence: No bowel incontinence: No leg pain: No perianal numbness: No paresis: No paresthesias: No tingling: Yes weight loss: No Risk factors: obesity Objective WT-210 HT-5'2 Physical Exam Motor Examination Strength: Hand strength is normal bilaterally. Lower limb strength is normal bilaterally. Except for a left foot drop Results Assessment & Plan 1. Foot drop. She reports that her foot rolls completely out, leading to falls, especially after prolonged walking. This issue began after a fall on January 09 last year. She has undergone physical therapy and received steroid injections in the back, but these interventions did not improve her condition. An AFO (ankle-foot orthosis) has been signed and sent over, and she has an appointment to pick it up. A disability handicap placard will be printed and provided to her today. If the AFO does not sufficiently address her symptoms, a LifeStep stimulator, which is becoming more commercially available, may be considered. This device works as a stimulator and has an exercise mode that could be beneficial. This clinical note was created utilizing TriPlay documentation system. All information has beenthoroughly reviewed, corrected as necessary, and authenticated by the provider to ensure accuracy and completeness. On occasion, TriPlay documentation system erroneously drops words or replaces aspoken word with a similar sounding word. Please notify with any questions or concerns regarding this clinical note. documented in this encounter Plan of Treatment DateTypeDepartmentCare Team (Latest Contact Info)Rdpeiwbgmsu68/08/2025 4:50 PM ESTOffice Visit [facility] [address] [place] [phone] Milton Duvall, DPM FACFAS [address] [place] [address] 04/08/2025 3:00 PM ESTOffice Visit [facility] [address] [address] [place] [address] Emerald Sanchez MD [address] [facility] [address] [place] [address] 06/05/2025 3:00 PM ESTOffice Visit [facility] [address] [facility] [address] [place] [address] Jatin Cabrera MD [address] [place] [address] [place] [address] documented as of this encounter Goals GoalPatient Goal TypeAssociated ProblemsRecent ProgressPatient-Stated?Author Help patient manage antidepressant medication Care PlanPatient on antidepressant monitoring Emerald Rain MD Baseline PHQ-9 Care PlanBaseline PHQ-9Emerald Underwood, MDdocumented as of this encounter Visit Diagnoses Diagnosis Left foot drop- Primary Other acquired deformity of ankle and foot Acute non intractable tension-type headache documented in this encounter Additional Health Concerns Active ProblemsNoted DateDiagnosed DatePatient on antidepressant monitoring plan 4Baseline PHQ-9005/08/2023ssessmentNoted TimePHQ-9 Depression Total Score: 13001/06/2025 10:55 AM EDTdocumented as of this encounter Care Teams Team MemberRelationshipSpecialtyStart DateEnd Date Emerald Sanchez MD [address] [place] [address] [place] [address] PCP - Medical [place] [employer]10/23/1911 Emerald Sanchez MD [address] [place] [address] [place] [address] PCP - GeneralFamily Medicine08/30/22documented as of this encounter
--- OUTSIDE RECORDS SUMMARY | 2025-03-24 23:59 | XMS_ITS | Encounter Summary ---
Author Organization [facility] Address [address] [facility], [address] [place] [address] Care Team Providers Care Handbag Designer Name Role Phone Emerald Sanchez MD Primary Care Provider [phone] Encounter Details DateTypeDepartmentCare Team (Latest Contact Info)Lguybhavdsb66/01/2025 11:59 PM ESTHospital Encounter [facility] [address] [phone] Shivani Nunez PTA Discharge Disposition: Home or Self Care Social History Tobacco UseTypesPacks/DayYears UsedDateSmoking Tobacco: FormerCigarettesQuit: 05/06/2008Smokeless Tobacco: NeverAlcohol UseStandard Drinks/WeekCommentsNot Asked0 (1 standard drink = 0.6 oz pure alcohol)1 a week. Last 03/18/23AH UtilitiesAnswerDate RecordedIn the past 12 months has the [employer], gas, oil, or water [employer] threatened to shut off services in your home?No03/21/2023Hunger Vital SignAnswerDate RecordedWithin the past 12 months, you worried that your food would run out before you got the money to buymore.Never true03/21/2023 Within the past 12 months, the food you bought just didn't last and you didn't have money to get more.Never true03/21/2023RAPARE - TransportationAnswerDate RecordedIn the past 12 months, has lack of transportation kept you from medical appointments or from getting medications?No03/21/2023In the past 12 months, has lack of transportation kept you from meetings, work, or from getting things needed for daily living?No03/21/2023Housing Stability Vital SignAnswerDate RecordedIn the last 12 months, was there a time when you were not able to pay the mortgage or rent on time?No03/21/2023In the last 12 months, how many places have you lived?In the last 12 months, was there a time when you did not have a steady place to sleep or slept in ashelter (including now)?No 03/21/2023Housing Stability Vital SignAnswerDate RecordedIn the last 12 months, was there a time when you were not able to pay the mortgage or rent on time?No 03/21/2023Number of Times Moved in the Last YearNot on file03/21/2023Homeless in the Last YearNot on file03/21/2023Interpersonal Safety ([facility] HRSN)AnswerDate RecordedHow often does anyone, including family and friends, physically hurt you?Food InsecurityAnswerDate RecordedWithin the past 12 months, you worried that your food would run out before you got the money to buymore.1 03/21/2023Within the past 12 months, the food you bought just didn't last and you didn't have money to get more.Interpersonal Safety Domain Source: IP Abuse ScreeningAnswerDate RecordedRead-Only, Retired: Physical AbuseDenies 03/21/2023Read-Only, Retired: Verbal IiwvlRrejww81/28/2023Read-Only, Retired: Emotional auzvgRyieii13/28/2023Read-Only, Retired: Financial AbuseDenies 03/21/2023Read-Only, Retired: Sexual ohytzQppoby32/28/2023Comments UnknownSex and Gender InformationValueDate RecordedSex Assigned at BirthFemale 12/11/2023 12:06 PM EDTLegal TzaWliscc93/10/2013 12:31 PM ESTGender Identity Evqggl8812/11/2023 12:06 PM EDTSexual LpkpeymjvntMklcrnyw51/19/2024 12:06 PM EDT documented as of this encounter Medications at Time of Discharge MedicationSigDispense QuantityRefillsLast FilledStart DateEnd Date ondansetron (ZOFRAN) 4 MG tablet Take 1 tablet by mouth every 8 hours as needed for Nausea or Vomiting 20 tablet 03/24/2023 albuterol sulfate HFA (VENTOLIN HFA) 108 (90 Base) MCG/ACT inhaler Inhale 2 puffs into the lungs every 6 hours as needed for Wheezing buPROPion (WELLBUTRIN SR) 150 MG extended release tablet Take 1 tablet by mouth 2 times daily Cholecalciferol (VITAMIN D3) 125 MCG (5000 UT) TABS Take 1 tablet by mouth Daily ALPRAZolam (XANAX) 0.5 MG tablet Take 1 tablet by mouth nightly. cariprazine hcl (VRAYLAR) 4.5 MG CAPS capsule Take 1 capsule by mouth nightly EPINEPHrine (SYMJEPI) 0.3 MG/0.3ML SOSY injection Inject 0.3 mLs into the muscle as needed for Anaphylaxis lisdexamfetamine (VYVANSE) 50 MG capsule Take 1 capsule by mouth every morning. Max Daily Amount: 50 mgdocumented as of this encounter Progress Notes * Aurea Cui - 03/24/2025 3:00 PM EST Physical Therapy [facility] Inpatient/Observation/Outpatient Rehabilitation Date: 03/24/2025 Patient Name: Belgica Barnett [] Inpatient Acute/Observation [] Outpatient : 1990 [] Pt refused/declined therapy at this time due to: [x] Pt cancelled due to: [] No Reason Given [] Sick/ill [x] Other: Has to work. [] Evaluation held by RN/Provider/Physical Therapist due to: [] High Heart Rate [] High Blood Pressure [] Orthopedic Consult [] Hgb < 7 [] Other: [] Pt ordered brace per physician request: [] Proper fit will be completed and education for wearing/skin checks [] Pt does not require skilled services due to: Therapist/Ammunition Specialist will attempt to see this patient, at our earliest opportunity. Aurea Cui Date: 03/24/2025 Cosigned by Shivani Nunez PTA at 03/24/2025 1:29 PM EST documented in this encounter Plan of Treatment DateTypeDepartmentCare Team (Latest Contact Info)Kdolqaqdrvz30/09/2025 4:30 PM ESTAppointment [facility] [address] [place] [phone] Shivani Nunez, BANQUET SERVER 04/08/2025 5:15 PM ESTAppointment [facility] Physical Therapy [address] [place] [phone] Shivani Nunez, BANQUET SERVER 04/14/2025 5:15 PM ESTAppointment [facility] Physical Therapy [address] [place] [phone] Shivani Nunez, CINDY 04/16/2025 10:30 AM ESTOffice Visit [facility] [address] [facility] [address] [place], [place] [phone] Joselo Peña DO [address] [facility] [address] [place], [place] [phone] New Patient, Medical Traver, 3 month visits, PG Fee $200, Mailed Packet 04/21/2025 5:15 PM ESTAppointment [facility] Therapy [address] [place] [phone] Shivani Nunez, BANQUET SERVER 04/28/2025 5:15 PM ESTAppointment [facility] Therapy [address] [place] [phone] Shivani Nunez, BANQUET SERVER 05/05/2025 5:15 PM ESTAppointment [facility] Therapy [address] [place] [phone] Shivani Nunez, BANQUET SERVER 05/12/2025 9:00 AM ESTAppointment [facility] Therapy [address] [place] [phone] Shivani Nunez, BANQUET SERVER 05/19/2025 5:15 PM ESTAppointment [facility] Therapy [address] [place] [phone] Shivani Nunez, CINDY documented as of this encounter Visit Diagnoses Not on filedocumented in this encounter Care Teams Team MemberRelationshipSpecialtyStart DateEnd Date Emerald Sanchez MD PCP - GeneralFamily Medicine11/02/18documented as of this encounter
[2025-03-27] VITALS (18 sets, daily range): BP systolic 124–179; BP diastolic 73–104; PULSE 94–126; TEMP 36.8; O2SAT 95–99; BMI 39.0
--- OUTSIDE RECORDS SUMMARY | 2025-03-27 11:00 | XMS_ITS | Encounter Summary ---
Author Organization [facility] Address [address] [place] [address] Care Team Providers Care Certified Medical Coder Name Role Phone Emerald Sanchez MD Unavailable Emerald Sanchez MD Primary Care Provider [phone] Encounter Details DateTypeDepartmentCare Team (Latest Contact Info)Jyggqwqukju42/04/2025 11:00 AM ESTOffice Visit [facility] [address] [facility] [address] [place] [phone] Sandy Hammond PA [address] [place] [address] [place] [address] Facial twitching (Primary Dx); Tremulousness; Other speech disturbance; Tachycardia Social History Tobacco UseTypesPacks/DayYears UsedDateSmoking Tobacco: Every [...] relatives?Once a week05/09/2024How often do you attend caodaism or christian services?Never05/09/2024Do you belong to any clubs or organizations such as caodaism groups, unions, fraternal or athletic groups, or school groups?Yes05/09/2024How often do you attend meetings of the clubs or organizations you belong to?Never05/09/2024re you , , , , never , or living with a partner?Adrrcle9605/09/2024 AUDIT-CAnswerDate RecordedQ1: How often do you have a drink containing alcohol? 2-4 times a month05/09/2024Q2: How many drinks containing alcohol do you have on a typical day when you are drinking?1 or Q3: How often do you have six or more drinks on one occasion?Less than fyapwcx9705/09/2024Overall Financial Resource Strain (CARDIA)AnswerDate RecordedHow hard is it for you to pay for the very basics like food, housing, medical care, and heating?Not hard at all 05/09/2024PHQ-2AnswerDate RecordedPatient Health Questionnaire-2 Score0 03/27/2025[facility] [place] [facility] - Occupational Stress QuestionnaireAnswerDate [...] steady place to sleep or slept in [facility] (including now)?No04/18/2023Housing Stability Vital SignAnswerDate RecordedIn the last 12 months, was there a time when you were not able to pay the mortgage or rent on time?No05/09/2024In the past 12 months, how many times have you moved where you were living?t any time in the past 12 months, were you homeless or living in a long term (including now)?No 05/09/2024CommentsNoSex and Gender InformationValueDate RecordedSex Assigned at BirthNot on fileLegal WzvWumfit86/15/2023 7:29 PM EDTGender Identity Not on fileSexual OrientationNot on filedocumented as of this encounter Last Filed Vital Signs Vital SignReadingTime TakenCommentsBlood Ykmkrnmb210/8603/27/2025 11:01 AM EST Cpsnd04844/04/2025 11:01 AM ESTTemperature--Respiratory Hydf020105/28/2024 11:01 AM ESTOxygen Mucxvckzug36%03/27/2025 11:01 AM ESTInhaled Oxygen Concentration-- Jujyeg12.3 kg (219 lb)03/27/2025 11:01 AM QXODpsrrb697.5 cm (5' 2 )03/27/2025 11:01 AM ESTBody Mass Index40.0603/27/2025 11:01 AM ESTdocumented in this encounter Functional Status * Over the past 2 weeks, how often have you been bothered by any of the following problems?QuestionAnswerDate of AssessmentAuthorLittle interest or pleasure in doing thingsNot at all03/27/2025 10:54 AM Marie Hughes LPN Feeling down, depressed, or hopelessNot at all03/27/2025 10:54 AM Marie Hughes LPNPatient Health Questionnaire-2 Geybv94705/28/2024 10:54 AM Marie Hughes LPN documented as of this encounter Progress Notes * VINH Roque - 03/27/2025 11:00 AM EST Images from the original note were not included. Subjective Patient ID: Belgica Barnett is a 34 y.o. female who presents for No chief complaint on file.. Belgica is present today for evaluation of slurring her speech. Admits she woke up yesterday with headache and slurring her words, she is shaky, he face is twitching. She has tried tylenol, ibuprofen, imitrex, cold mask for the headache. She feels since yesterday she is getting worse. Checked her glucose yesterday and it was 114 after eating. Over the past 2 weeks, how often have you been bothered by any of the following problems? Little interest or pleasure in doing things: Not at all Feeling down, depressed, or hopeless: Not at all Patient Health Questionnaire-2 Score: 0 Current Outpatient Medications on File Prior to Visit Medication Sig Dispense Refill OXcarbazepine (Trileptal) 300 MG tablet Take 1 tablet (300 mg) by mouth in the morning and 1 tablet(300 mg) before bedtime. (Patient taking differently: Take 300 mg by mouth Daily) 60 tablet 2 albuterol (2.5 MG/3ML) 0.083% nebulizer solution Take [...] capsule by mouth Daily 100 capsule 3 celecoxib (CeleBREX) 100 MG capsule Take 1 capsule (100 mg) by mouth in the morning and 1 capsule (100 mg) before bedtime. 180 capsule 3 citalopram (CeleXA) 10 MG tablet 1 (one) time each day at the same time dapagliflozin (Farxiga) 10 MG Take 1 tablet (10 mg) by mouth Daily 30 tablet 11 doxepin (SINEquan) 100 MG capsule Take 2 capsules (200 mg) by mouth at bedtime 60 capsule 5 escitalopram (Lexapro) 20 MG tablet Take 20 mg by mouth Daily Mndajpvbtac-Roitbtzan-Goiqhi (Trelegy Ellipta) 100-62.5-25 MCG/ACT aerosol powder INHALE [...] mouth every 6 (six) hours if needed prazosin (Minipress) 2 MG capsule Take 1 capsule (2 mg) by mouth in the morning and 1 capsule (2 mg) in the evening and 1 capsule (2 mg) before bedtime. 100 capsule 2 propranolol (Inderal) 10 MG tablet every 12 (twelve) hours [DISCONTINUED] amphetamine-dextroamphetamine XR (Adderall XR) 10 MG [...] the 10mg daily 30 capsule 0 [DISCONTINUED] doxepin (SINEquan) 100 MG capsule Take 2 capsules (200 mg) by mouth at bedtime 60 capsule 5 [DISCONTINUED] metoprolol succinate XL (Toprol-XL) 25 MG 24 hr tablet Take 1 tablet (25 mg) by mouth Daily 100 tablet 3 [DISCONTINUED] OXcarbazepine (Trileptal) 300 MG tablet Take 0.5 tablets (150 mg) by mouth at bedtime for 7 days, THEN 1 tablet (300 mg) at bedtime. 34 tablet 11 [DISCONTINUED] Semaglutide-Weight Management (Wegovy) 0.25 MG/0.5ML solution auto-injector Inject 0.25 mg under the skin 1 (one) time per week (Patient not taking: Reported on 03/27/2025) 2 mL 0 [DISCONTINUED] Semaglutide-Weight Management (Wegovy) 0.25 MG/0.5ML solution auto-injector Inject 0.25 mg under the skin 1 (one) time per week 2 mL 0 No current facility-administered medications on file prior to visit. I have reviewed and reconciled the history and medication list with the patient today. Allergies Allergen Reactions Cat Dander Anaphylaxis Iodine Itching and Swelling Omnipaque 300: Patient experienced itching on her neck and left side of her face. Also, pt complained of tongue feeling itchy and feels like something is stuck in her throat . Patient received diphenhydramine (Benadryl) Other Reaction(s): unknow Iodinated Contrast Media Hives Social History Tobacco Use Smoking status: Every [...] 02/10/2023 TOENAIL EXCISION 2017 Visit Vitals BP 122/86 Pulse (!) 115 Resp 16 Ht 5' 2 Wt 219 lb LMP (LMP Unknown) Comment: partial hysterectomy 05/2016 SpO2 99% BMI 40.06 kg/m?? OB Status Hysterectomy Smoking Status Every Day BSA 2.08 m?? Review of Systems Constitutional: Negative for chills, fatigue and fever. Eyes: Positive for photophobia. Respiratory: Negative for cough, shortness of breath and wheezing. Cardiovascular: Negative for chest pain, palpitations and leg swelling. Gastrointestinal: Negative for abdominal pain, constipation, diarrhea, nausea and vomiting. Skin: Negative for rash. Neurological: Positive for speech difficulty and headaches. Shaky, facial twitching Objective Physical Exam Constitutional: General: She is not in acute distress. Appearance: She is well-developed. She is obese. HENT: Head: Normocephalic and atraumatic. Eyes: General: No scleral icterus. Conjunctiva/sclera: Right eye: Right conjunctiva is injected. Left eye: Left conjunctiva is injected. Comments: Unable to assess pupils due to light sensitivity. Bilateral significant photophobia Cardiovascular: Rate and Rhythm: Regular rhythm. Tachycardia present. Heart sounds: Normal heart sounds. No murmur heard. Pulmonary: Effort: Pulmonary effort is normal. No respiratory distress. Breath sounds: Normal breath sounds. No wheezing, rhonchi or rales. Skin: General: Skin is warm and dry. Neurological: General: No focal deficit present. Mental Status: She is alert and oriented to person, place, and time. Comments: Facial twitching noted, stuttering speech intermittently. Torso and BUE trembling intermittently. Psychiatric: Mood and Affect: Mood is anxious. Affect is flat. Comments: Rt leg bouncing during visit, rigid posture Assessment/Plan Diagnoses and all orders for this visit: Facial twitching Due to current symptoms and exam findings, advised pt that I would recommend further evaluation than what we are able to complete at our office. Advised STAT lab work and possibly imaging, ie CT of head, may be indicated and pt is sent to ER for further evaluation at this time. She states she will go to [facility]. Is going by private vehicle. She wishes to drive herself. [facility] contacted and notified, OV note faxed. Tremulousness Other speech disturbance Tachycardia Follow up with VINH Gomez in about 12 days (around 04/08/2025 Appointment as scheduled, or for ER follow up sooner if needed). documented in this encounter Plan of Treatment DateTypeDepartmentCare Team (Latest Contact Info)Gczliyknebh08/08/2025 4:50 PM ESTOffice Visit [facility] [address] [place] [phone] Milton Duvall, DPM FACFAS [address] [place] [address] 04/08/2025 3:00 PM ESTOffice Visit [facility] [address] [facility] [address] [place] [phone] Emerald Sanchez MD 112 [facility] 110 [place], [place] [phone] 06/05/2025 3:00 PM ESTOffice Visit [facility] [address] [place] [phone] Jatin Cabrera MD [address] [facility] [address] [address] documented as of this encounter Goals GoalPatient Goal TypeAssociated ProblemsRecent ProgressPatient-Stated?Author Help patient manage antidepressant medication Care PlanPatient on antidepressant monitoring Emerald Rain MD Baseline PHQ-9 Care PlanBaseline PHQ-9Emerald Underwood, MDdocumented as of this encounter Visit Diagnoses Diagnosis Facial twitching- Primary Other facial nerve disorders Tremulousness Other speech disturbance Tachycardia Unspecified tachycardia documented in this encounter Additional Health Concerns Active ProblemsNoted DateDiagnosed DatePatient on antidepressant monitoring plan 4Baseline PHQ-904AssessmentNoted TimePHQ-9 Depression Total Score: 13001/06/2025 10:55 AM EDTdocumented as of this encounter Care Teams Team MemberRelationshipSpecialtyStart DateEnd Date Emerald Sanchez MD [address] [facility] [address] [place] [address] PCP - Medical [place] [employer]10/23/1911 Emerald Sanchez MD [address] [place] [address] [place] [address] PCP - GeneralFamily Medicine08/30/22documented as of this encounter
--- NOTE | 2025-03-27 11:37 | ECG_ITS ---
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 Measurements Intervals [place] Rate: 107 P: 65 MO: 152 QRS: 69 QRSD: 80 T: 55 QT: 362 QTc: 425 Interpretive Statements 1120 Sinus tachycardia 9140 abnormal rhythm ECG Compared to ECG 01/06/2025 01:04:55 Sinus rhythm no longer present Electronically Signed On 03-27-2025 20:49:01 EST by MARJAN JOHNSON M.D.
--- NOTE | 2025-03-27 11:37 | CT_ITS ---
The [address] [address] Patient Name: ORION HARPER MRN: [facility]:[id number] date: 1990 Sex: F Assigned Patient Location: ED.MAIN Current Patient Location: ED.MAIN Accession/Order Number: [id number] Exam Date: 03/27/2025 11:45 Report Date: 03/27/2025 12:15 At the request of: SONIYA PATEL MD Procedure: CT head/brain wo con CT BRAIN WITHOUT CONTRAST: CLINICAL HISTORY: Headaches and right eye twitching COMPARISON: MRI 10/21/[address] 08/14/2024 TECHNIQUE: Contiguous axial unenhanced images were obtained through the brain. This CT exam was performed using one or more following dose reduction techniques: Automated exposure control, adjustment of the mA and/or kV according to patient size, or use of iterative reconstruction technique. FINDINGS: The ventricles are normal in size and position. Physiologic basal ganglia calcifications are again noted. There are no areas of abnormal attenuation. There is no hemorrhage, mass effect or extra-axial collections. The imaged paranasal sinuses and mastoid air cells are clear. CT/CT head/brain wo con IMPRESSION: NO ACUTE INTRACRANIAL ABNORMALITY. Impression dictated by: Sandy Knight M.D. 03/27/2025 12:15 PM Dictation Location: [place] [address] Electronically authenticated by: [id number] Y Date: 03/27/2025 12:15
--- NOTE | 2025-03-27 11:38 | ED.GENADUL1 ---
HPI HPI - General Adult General Chief complaint: Neuro Symptoms/Deficit Stated complaint: cva like symptoms Time Seen by Provider: 03/27/25 11:24 Source: patient Mode of arrival: walk-in Limitations: no limitations History of Present Illness HPI narrative: 34-year-old female presents for headache and twitching of her right eye. She states she woke up with a headache yesterday morning. No trauma fever or stiff neck or localized weakness. Yesterday afternoon her eye started twitching on the right side. She saw somebody in her doctor's office today who sent her here. Related Data Home Medications ?Medication ?Instructions ?Recorded ?Confirmed albuterol sulfate 90 mcg/actuation 2 inh inhalation Q4H PRN shortness 02/06/23 12/09/24 aerosol inhaler of breath or wheezing cariprazine 4.5 mg capsule 4.5 mg PO QPM 02/06/23 12/09/24 (Vraylar) epinephrine 0.3 mg/0.3 mL 0.3 ml subcut Q4H PRN anaphylaxis 02/06/23 12/09/24 injection, auto-injector dextroamphetamine-amphetamine ER 30 mg PO QDAY 03/17/24 12/09/24 30 mg 24hr capsule,extend release escitalopram oxalate 20 mg tablet 20 mg PO QDAY 03/17/24 12/09/24 dextroamphetamine-amphetamine ER 10 mg PO DAILY 08/14/24 12/09/24 10 mg 24hr capsule,extend release fluticasone fur. 100 mcg-umeclid 1 inh inhalation DAILY 08/14/24 12/09/24 62.5 mcg-vilant 25 mcg inhalat.powder (Trelegy Ellipta) metoprolol succinate 25 mg 25 mg PO DAILY 08/14/24 12/09/24 tablet,extended release 24 hr montelukast 10 mg tablet 10 mg PO .QHS 08/14/24 12/09/24 albuterol sulfate 90 mcg/actuation 2 puff inhalation Q6H PRN 08/15/24 08/15/24 aerosol inhaler shortness of breath or wheezing clomipramine 50 mg capsule 50 mg PO .QHS 08/15/24 12/09/24 bupropion HCl 300 mg 24 hr tablet, mg PO 12/09/24 extended release flexeral 12/09/24 Previous Rx's ?Medication ?Instructions ?Recorded hydrocodone 5 mg-acetaminophen 325 1 tab PO Q4H PRN pain #10 tabs 09/06/24 mg tablet [id number]-kjrdxvffqahta-jzbzvswp 1 cap PO Q6H PRN pain #20 caps 03/27/25 50 mg-300 mg-40 mg capsule (Fioricet) Allergies Allergy/AdvReac Type Severity Reaction Status Date / Time cat dander Allergy Anaphylaxis Verified 03/27/25 11:24 Iodinated Contrast Media Allergy Hives Verified 03/27/25 11:24 Opioid HPI Opioid Management Most Recent Opioid Data: Last Pain Scale 7 Today, 13:04 Last ED Pain Assessment Today, 11:32 Last MAR Pain Assessment Today, 13:04 Last ORT Total Score 9 08/15/24, 07:32 Last ORT Risk Category High Risk 08/15/24, 07:32 Ur Phencyclidine Scrn, (NEGATIVE) Negative Today, 11:50 Review of Systems ROS Narrative A ten point review of systems is negative except as noted above. [facility] Medical History (Updated 03/27/25 @ 13:49 by Stepan Mckeon MD) Hypoxia ?R09.02 - Hypoxemia (ICD-10) Metabolic acidosis ?E87.20 - Acidosis, unspecified (ICD-10) Elevated liver function tests ?R79.89 - Other specified abnormal findings of blood chemistry (ICD-10) Altered mental status ?R41.82 - Altered mental status, unspecified (ICD-10) Laceration of left wrist ?S61.512A - Laceration without foreign body of left wrist, initial encounter (ICD-10) Benzodiazepine overdose ?T42.4X1A - Poisoning by benzodiazepines, accidental (unintentional), initial encounter (ICD-10) Suicide attempt ?T14.91XA - Suicide attempt, initial encounter (ICD-10) Alcoholic intoxication ?F10.929 - Alcohol use, unspecified with intoxication, unspecified (ICD-10) Bronchitis (04/07/24) ?J40 - Bronchitis, not specified as acute or chronic (ICD-10) HTN (hypertension) ?I10 - Essential (primary) hypertension (ICD-10) Prediabetes ?R73.03 - Prediabetes (ICD-10) Suicidal ideation ?R45.851 - Suicidal ideations (ICD-10) Depression ?F32.A - Depression, unspecified (ICD-10) Anxiety ?F41.9 - Anxiety disorder, unspecified (ICD-10) 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) ?R76.11 - Nonspecific reaction to tuberculin skin test without active tuberculosis (ICD-10) Postoperative nausea and vomiting ?R11.2 - Nausea with vomiting, unspecified (ICD-10) ?Z98.890 - Other specified postprocedural states (ICD-10) 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 - depression (ICD-10) Ovarian cyst ?N83.209 - Unspecified ovarian cyst, unspecified side (ICD-10) HELLP (hemolytic anemia/elev liver enzymes/low platelets in ) ?O14.20 - HELLP syndrome (HELLP), unspecified trimester (ICD-10) Gestational hypertension ?O13.9 - Gestational [-induced] hypertension without significant proteinuria, unspecified trimester (ICD-10) Dizziness ?R42 - Dizziness and giddiness (ICD-10) Vitamin D deficiency ?E55.9 - Vitamin D deficiency, unspecified (ICD-10) Urinary tract infection ?N39.0 - Urinary tract infection, site not specified (ICD-10) Urinary frequency ?R35.0 - Frequency of micturition (ICD-10) Hypercholesterolemia ?E78.00 - Pure hypercholesterolemia, unspecified (ICD-10) Osteoarthritis, knee ?M17.9 - Osteoarthritis of knee, unspecified (ICD-10) Gastroparesis ?K31.84 - Gastroparesis (ICD-10) GERD (gastroesophageal reflux disease) ?K21.9 - Gastro-esophageal reflux disease without esophagitis (ICD-10) Dysuria ?R30.0 - Dysuria (ICD-10) Enlarged thyroid ?E04.9 - Nontoxic goiter, unspecified (ICD-10) Headache ?R51.9 - Headache, unspecified (ICD-10) Skin pain ?R20.8 - Other disturbances of skin sensation (ICD-10) Sciatica ?M54.30 - Sciatica, unspecified side (ICD-10) Poor concentration ?R41.840 - Attention and concentration deficit (ICD-10) ENGLISH (nonalcoholic steatohepatitis) ?K75.81 - Nonalcoholic steatohepatitis (ENGLISH) (ICD-10) Kidney stones ?N20.0 - Calculus of kidney (ICD-10) Mood swings ?R45.86 - Emotional lability (ICD-10) Sinusitis ?J32.9 - Chronic sinusitis, unspecified (ICD-10) Insomnia ?G47.00 - Insomnia, unspecified (ICD-10) Hypersexuality ?F52.8 - Other sexual dysfunction not due to a substance or known physiological condition (ICD-10) Hyperglycemia ?R73.9 - Hyperglycemia, unspecified (ICD-10) Elevated liver enzymes ?R74.8 - Abnormal levels of other serum enzymes (ICD-10) Dysphagia ?R13.10 - Dysphagia, unspecified (ICD-10) Diverticulitis ?K57.92 - Diverticulitis of intestine, part unspecified, without perforation or abscess without bleeding (ICD-10) Bipolar 1 disorder ?F31.9 - Bipolar disorder, unspecified (ICD-10) Attention deficit hyperactivity disorder ?F90.9 - Attention-deficit hyperactivity disorder, unspecified type (ICD-10) Abnormal involuntary movement ?R25.9 - Unspecified abnormal involuntary movements (ICD-10) Endometriosis ?N80.9 - Endometriosis, unspecified (ICD-10) Dyspareunia Pelvic pain ?R10.2 - Pelvic and perineal pain (ICD-10) History of blood transfusion ?Z92.89 - Personal history of other medical treatment (ICD-10) Anemia ?D64.9 - Anemia, unspecified (ICD-10) PTSD (post-traumatic stress disorder) ?F43.10 - Post-traumatic stress disorder, unspecified (ICD-10) Depression ?F32.A - Depression, unspecified (ICD-10) Anxiety ?F41.9 - Anxiety disorder, unspecified (ICD-10) COVID-19 ?U07.1 - COVID-19 (ICD-10) Asthma ?J45.909 - Unspecified asthma, uncomplicated (ICD-10) Migraine ?G43.909 - Migraine, unspecified, not intractable, without status migrainosus (ICD-10) Heartburn ?R12 - Heartburn (ICD-10) Constipation ?K59.00 - Constipation, unspecified (ICD-10) IBS (irritable bowel syndrome) ?K58.9 - Irritable bowel syndrome without diarrhea (ICD-10) Tachycardia ?R00.0 - Tachycardia, unspecified (ICD-10) Syncope ?R55 - Syncope and collapse (ICD-10) Surgical History (Updated 08/15/24 @ 14:49 by Lauren Denny) History of ankle surgery ?Z98.890 - Other specified postprocedural states (ICD-10) Hx of cholecystectomy ?Z90.49 - Acquired absence of other specified parts of digestive tract (ICD-10) History of cholecystectomy (03/21/23) ?Z90.49 - Acquired absence of other specified parts of digestive tract (ICD-10) History of esophagogastroduodenoscopy (EGD) ?Z98.890 - Other specified postprocedural states (ICD-10) History of colonoscopy ?Z98.890 - Other specified postprocedural states (ICD-10) History of hysterectomy ?Z90.710 - Acquired absence of both cervix and uterus (ICD-10) History of section ?Z98.891 - History of uterine scar from previous surgery (ICD-10) Family History (System 08/15/24 @ 14:49 by Lauren Denny) Other Family history of diabetes mellitus Family history of hypertension Family history of ovarian cancer PONV (postoperative nausea and vomiting) Social History (System 08/15/24 @ 14:49 by Lauren Denny) Within the past year, how often did you have a drink containing alcohol: 2-4 times a month Smoking status: Former smoker Non-prescribed substance use: cannabis (any form) 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 Skin:Warm, dry, no pallor noted.There is no rash noted. Head:Normocephalic, atraumatic Eye: Normal conjunctiva, no drainage, EOMI. PERRL Ears, Nose, Mouth, and Throat: oral mucosa is moist. Nares patent. Cardiovascular:Regular Rate and Rhythm Respiratory:Patient is in no distress, no accessory muscle use, lungs are clear to auscultation, no wheezing, rales or rhonchi Back:non-tender GI: Soft and nontender Musculoskeletal: The patient has no evidence of calf tenderness, no pitting edema, symmetrical pulses noted bilaterally Neurological:A&O x4, upper lower extremity strength 5 out of 5 and symmetric Psychiatric:Cooperative Constitutional Vital Signs, click to edit/add: Last Vital Signs Temp 98.3 F 03/27/25 11:24 Pulse 94 H 03/27/25 13:10 Resp 20 03/27/25 11:40 BP 141/93 H 03/27/25 13:00 Pulse Ox 95 03/27/25 13:10 O2 Del Method Room Air 03/27/25 11:24 Course Vital Signs Vital signs: Vital Signs Temperature 98.3 F 03/27/25 11:24 Pulse Rate 107 H 03/27/25 11:24 Respiratory Rate 16 03/27/25 11:24 Blood Pressure 179/104 H 03/27/25 11:24 Pulse Oximetry 99 03/27/25 11:24 Oxygen Delivery Method Room Air 03/27/25 11:24 Temperature 98.3 F 03/27/25 11:24 Pulse Rate 94 H 03/27/25 13:10 Respiratory Rate 20 03/27/25 11:40 Blood Pressure 141/93 H 03/27/25 13:00 Pulse Oximetry 95 03/27/25 13:10 Oxygen Delivery Method Room Air 03/27/25 11:24 Medical Decision Making MDM Narrative Medical decision making narrative: The patient presents with a headache and is feeling improved after being given Toradol, Benadryl, and Solu-Medrol through IV route. Her headache is better and the twitching of her eye is now gone. Blood work also was normal and she is able to be discharged home with a prescription for Fioricet. Follow-up with her doctor. Treatment diagnosis and follow-up were discussed with the patient. Differential Diagnosis Differential Diagnosis: Headache, intracranial hemorrhage, anxiety Lab Data Lab results reviewed: Yes I reviewed the patient's lab results Labs: Lab Results 03/27/25 03/27/25 Range/Units 11:30 11:50 WBC 7.6 (4.0-11.0) 10^3/uL RBC 4.65 (4.20-5.40) 10^6/uL Hgb 14.0 (12.0-16.0) g/dL Hct 43.2 (36.0-48.0) % MCV 92.9 (81.0-99.0) fL MCH 30.1 (26.7-34.0) pg MCHC 32.4 (29.9-35.2) g/dL RDW 12.4 (11.0-15.0) % Plt Count 239 (150-450) 10^3/uL MPV 10.4 (9.5-13.5) fL Neut % (Auto) 57.2 (43.0-75.0) % Lymph % (Auto) 33.2 (20.5-60.0) % Sabine % (Auto) 5.0 (1.7-12.0) % Eos % (Auto) 3.0 (0.9-7.0) % Baso % (Auto) 0.4 (0.2-2.0) % Neut # (Auto) 4.4 (1.4-6.5) 10^3/uL Lymph # (Auto) 2.5 (1.2-3.8) 10^3/uL Sabine # (Auto) 0.4 (0.3-0.8) 10^3/uL Eos # (Auto) 0.2 (0.0-0.7) 10^3/uL Baso # (Auto) 0.0 (0.0-0.1) 10^3/uL Abs Immat Gran (auto) 0.09 H (0.00-0.03) 10^3/uL Imm/Tot Granulo (auto) 1.2 H (0.0-0.5) % Sodium 141 (136-145) mmol/L Potassium 3.6 (3.5-5.1) mmol/L Chloride 101 (98-107) mmol/L Carbon Dioxide 32.0 (21.0-32.0) mmol/L Anion Gap 11.6 BUN 12.0 (7.0-18.0) mg/dL Creatinine 1.03 H (0.55-1.02) mg/dL Est GFR ( Amer) >60 (>=60 mL/min/1.73m^2) Est GFR (Non-Af Amer) >60 (>=60 mL/min/1.73m^2) BUN/Creatinine Ratio 11.7 Glucose 142 H (74-106) mg/dL Calcium 9.0 (8.5-10.1) mg/dL Urine Color Lt. yellow (YELLOW) Urine Clarity Clear (CLEAR) Urine pH 7.5 (5.0-9.0) Ur Specific [place] 1.010 (1.005-1.025) Urine Protein Negative (NEG/TRACE) mg/dL Urine Glucose (UA) Negative (NEGATIVE) mg/dL Urine Ketones Negative (NEGATIVE) mg/dL Urine Occult Blood Negative (NEGATIVE) Urine Nitrite Negative (NEGATIVE) Urine Bilirubin Negative (NEGATIVE) Urine Urobilinogen 0.2 (0.2-1.0) EU/dL Ur Leukocyte Esterase Small A (NEGATIVE) Urine RBC 0-2 (0-2) #/HPF Urine WBC 2-5 A (NONE SEEN) #/HPF Ur Squamous Epith Cells Rare (NONE/RARE) #/LPF Urine Crystals None seen (None Seen) #/HPF Urine Bacteria Moderate A (NONE SEEN) #/HPF Urine Casts None seen (NONE SEEN) #/LPF Urine Mucus None seen (NONE SEEN) Ur Culture Indicated? Yes-[facility] [place] Urine Opiates Screen Negative (NEGATIVE) Ur Buprenorphine Scrn Negative (NEGATIVE) Ur Oxycodone Screen Negative (NEGATIVE) Urine Methadone Screen Negative (NEGATIVE) Ur Barbiturates Screen Negative (NEGATIVE) U Tricyclic Antidepress Positive A (NEGATIVE) Ur Phencyclidine Scrn Negative (NEGATIVE) Ur Amphetamines Screen Positive A (NEGATIVE) U Methamphetamines Scrn Negative (NEGATIVE) U Benzodiazepines Scrn Negative (NEGATIVE) Urine Cocaine Screen Negative (NEGATIVE) U Cannabinoids Screen Positive A (NEGATIVE) POC Glucose 128 H (74-106) mg/dL Imaging Data CT scan - head: Radiologist's impression: ITS Impressions Head CT 03/27/25 11:37 IMPRESSION: NO ACUTE INTRACRANIAL ABNORMALITY. Impression dictated by: Sandy Knight M.D. 03/27/2025 12:15 PM Dictation Location: [place] [id number] Electronically authenticated by: [id number] Y Date: 03/27/2025 12:15 Discharge Plan Discharge Chief Complaint: Neuro Symptoms/Deficit Clinical Impression: Headache Patient Disposition: Home, Self-Care Time of Disposition Decision: 13:49 Condition: Good Mode of Transportation: Private Vehicle Prescriptions / Home Meds: New [id number] [Fioricet] 50-300-40 mg capsule 1 cap PO Q6H PRN (Reason: pain) Qty: 20 0RF No Action albuterol sulfate 90 mcg/actuation HFA aerosol inhaler 2 inh INHALATION Q4H PRN (Reason: shortness of breath or wheezing) Vraylar 4.5 mg capsule 4.5 mg PO QPM epinephrine 0.3 mg/0.3 mL auto-injector 0.3 ml subcut Q4H PRN (Reason: anaphylaxis) dextroamphetamine-amphetamine 30 mg capsule,extended release 24hr 30 mg PO QDAY escitalopram oxalate 20 mg tablet 20 mg PO QDAY dextroamphetamine-amphetamine 10 mg capsule,extended release 24hr 10 mg PO DAILY montelukast 10 mg tablet 10 mg PO .QHS metoprolol succinate 25 mg tablet extended release 24 hr 25 mg PO DAILY Trelegy Ellipta 100-62.5-25 mcg blister with device 1 inh INHALATION DAILY albuterol sulfate 90 mcg/actuation HFA aerosol inhaler 2 puff INHALATION Q6H PRN (Reason: shortness of breath or wheezing) clomipramine 50 mg capsule 50 mg PO .QHS hydrocodone-acetaminophen 5-325 mg tablet 1 tab PO Q4H PRN (Reason: pain) Qty: 10 0RF bupropion HCl 300 mg tablet extended release 24 hr PO flexeral Print Language: Bulgarian Instructions: Acute Headache (ED) Referrals: GIOVANI HAGEN [Primary Care Provider, Family Practice] - 1 week
[2025-03-27 11:45] LABS: Hematocrit 43.2 % (36.0-48.0); Hemoglobin 14.0 g/dL (12.0-16.0); Immature Granulocytes Abs Auto 0.09 10^3/uL (0.00-0.03); Immature Granulocytes Pct Auto 1.2 % (0.0-0.5); Lymphocytes Absolute Auto 2.5 10^3/uL (1.2-3.8); Mean Corpuscular HGB Conc 32.4 g/dL (29.9-35.2); Mean Corpuscular Hemoglobin 30.1 pg (26.7-34.0); Mean Corpuscular Volume 92.9 fL (81.0-99.0); Platelet Count 239 10^3/uL (150-450); Red Blood Count 4.65 10^6/uL (4.20-5.40); White Blood Count 7.6 10^3/uL (4.0-11.0)
--- OUTSIDE RECORDS SUMMARY | 2025-03-27 11:45 | XMS_ITS | Clinical Summary ---
Author Organization [facility] Address [address] [place] [address] Care Team Providers Care Diesel Locomotive Firer/Fireman Name Role Phone Emerald Sanchez MD Primary Care Provider [phone] Deena Osorio CARBON CLEANER Unavailable [phone] Darwin Starr DO Unavailable [phone] Allergies Active AllergyReactionsCriticalityNoted DateCommentsCat DanderAnaphylaxis 07/10/2024Iodinated Contrast MediaAnaphylaxis,Hives,PwbapqmRawz59/20/2019Iodine Swelling,Ssutxia1004/11/2019 Omnipaque 300: Patient experienced itching on her neck and left side of her face. Also, pt complained of tongue feeling itchy and feels like something is stuck in her throat . Patient received diphenhydramine (Benadryl) RojpnbuZskwexa09/20/2019Tree MjvtQpcwzpbxqtb27/19/2025 Medications MedicationSigDispense QuantityRefillsLast FilledStart DateEnd DateStatus ALPRAZolam [...] mg tablet PLEASE SEE ATTACHED FOR DETAILED OZTRLWNFKB84/17/2025tive prazosin (MINIPRESS) 2 mg cap Take 2 [...] ctive Active Problems ProblemNoted DateDiagnosed DatePelvic floor gsgepizvxbf92/20/2025hronic zjwatxpenabm46/20/2025Muscle spasm10/11/20248711Vhxszkbeldsel76/12/2023 Encounters DateTypeDepartmentCare XviaIxuyyuqpjyf24/17/2025 Patient Msg Gastroenterology [address] [place] [address] Grayson Peter MD Appointment Dczrmuf4702/28/2025Results Follow-Up [facility] Provider Adult [address] [place] [address] Grayson Peter MD 02/25/2025 1:25 PM ESTAnesthesia Event Ambulatory Surgery Formerly named [facility] [place] [address] Jenna Merrill APRN.CRNA Rodstrom, Marie H, APRN.GAS AND OIL CHECKER 02/25/2025 12:30 PM EST - 02/25/2025 11:59 PM ESTHospital Encounter Ambulatory Surgery [address] [place], [place] [address] [address] Grayson Peter MD Barchanowicz, Angela, Jenna Harrison APRN.DAHLIA Garcia, initial encounter [T17.308A] Discharge Disposition: Home02/24/20250818Phfxjw98/03/2025GI Preprocedure Call Ambulatory Surgery Formerly named [facility] [place] [address] Grayson Peter MD 02/19/2025Results Follow-Up Ambulatory Surgery Formerly named [facility] [place] [address] Grayson Peter MD 02/18/2025 3:30 PM EDTNurse Visit Gastroenterology [address] [place], [place] [address] [address] Nurse Jud Hanley Helicobacter pylori ywqrulwge30/27/2025 9:00 AM EDTOffice Visit Gastroenterology Formerly named [facility] [place] [address] Grayson Peter MD Choking, initial encounter (Primary Dx); Gastroesophageal reflux disease, unspecified whether esophagitis present; Helicobacter pylori gastritis; Gastroparesis; Chronic constipation; Metabolic dysfunction-associated steatotic liver disease (MASLD)02/13/2025Travel 02/12/2025 Patient Msg Gastroenterology [address] [place] [id number] Grayson Peter MD Appointment Gicoxuv2001/09/2025 Get Medical Advice Colorectal Surgery [address] [place] [address] Lesly Barnett CARBON CLEANER.COAT HANGER SHAPER MACHINE OPERATOR Follow up01/06/2025 Get Medical Advice Cardiology [address] [place] [address] Provider, Ccf Hfbcudi8812/30/2024 9:00 AM EDTOffice Visit Gynecology [address] [place] [address] Emma Ying, BASSAM.COAT HANGER SHAPER MACHINE OPERATOR Chronic pelvic pain in female (Primary Dx); Other specified dyspareunia; Pelvic pain in female; High-tone pelvic floor dysfunction; Vulvodynia; Stress incontinence; Irritable bowel syndrome with constipation; Vaginal rwebwhu6912/30/2024Travelfrom Last 3 Months Family History Medical HistoryRelationCommentsheart murmurBrothermurmurMaternal AuntColon CancerMaternal Grandfatherstarted in the kidneyRelationStatusCommentsBrother Maternal AuntAliveMaternal Grandfather Social History Tobacco UseTypesPacks/DayYears UsedDateSmoking Tobacco: NeverSmokeless Tobacco: Never Tobacco Cessation:Counseling Given: Not Answered Alcohol UseStandard Drinks/WeekCommentsYes4 (1 standard drink = 0.6 oz pure alcohol)sociallyPHQ-2AnswerDate RecordedPHQ-2 zdqrf701UDIT-CAnswerDate RecordedFrequency of Alcohol ConsumptionNot on file02/25/2025Q2: How many drinks containing alcohol do you have on a typical day when you are drinking?Patient does not drink02/25/2025Frequency of Binge DrinkingNot on file02/25/2025rea Deprivation IndexAnswerDate RecordedNational Score (1-100), lower number is lower ucpa805710/17/2022State Score (1-10), lower number is lower drvl941 Data from: https://www.neighborhoodatlas.[facility]/. Last address used for j[address]11 [place] 8717010/17/2022CommentsNoSex and Gender Information ValueDate RecordedSex Assigned at BirthNot on fileLegal RmdDflhqz46/03/2019 9:05 PM EDTGender VedyzyacAamsih54/15/2022 8:30 AM ESTSexual OrientationNot on file Last Filed Vital Signs Vital SignReadingTime TakenCommentsBlood Nctmmjev454/8211 1:56 PM EST Woyrl656602/25/2025 1:56 PM RJYPfiotsdtfad25.3 ??C (97.4 ??F)10/17/2022 9:55 AM EDTRespiratory Sxvg168004/27/2024 1:56 PM ESTOxygen Mmksdpgqem31%02/25/2025 1:56 PM ESTInhaled Oxygen Concentration--Qkipuf14 kg (211 lb 10.3 oz)02/17/2025 9:00 AM MBEHxpzoo744 cm (5' 3 )08/13/2024 2:57 PM EDTBody Mass Index37.49008/13/2024 2:57 PM EDT Plan of Treatment DateTypeDepartmentCare Team (Latest Contact Info)Cgnkbshonez90/06/2026 9:30 AM ESTAppointment Ambulatory Surgery [address] [place] [address] [place] [address] [place] [address] 2mth repeat dysphagia, gastroparesis (CLD day prior)Health MaintenanceDue Date Last DoneCommentsAnxiety Btpdunasv13/07/2007Depression Ahgutyadt73/07/2007HIV Xvqvvvgla55/07/2007HPV Vaccine (2 - 3-dose series)Cervical Cancer Vowlvhecz87/07/2010Covid-19 Vaccine ( season)2024 11/02/2021, 04/29/2021, 03/03/2021Influenza Vaccine (#1), 03/16/2020, 01/08/2018, Additional history existsDTaP,Tdap,Td Vaccine (7 - Td or Tdap), 02/05/2010, 12/28/1993, Additional history exists Hepatitis B NnocxtvFjujoyfip64/14/2007, 11/02/2006, 02/20/1998Hepatitis C JhhvelfvuYxerddewy35/03/2025 Goals GoalPatient Goal TypeAssociated ProblemsRecent ProgressPatient-Stated?Author Blood Pressure < 140/90 Blood Klsvpvtd407/82(02/25/2025 1:56 PM EST)Solo Barclay MD Procedures Procedure NamePriorityDate/TimeAssociated DiagnosisCommentsCYTOLOGY NON-ELECTRONIC TECHNOLOGIST Jfuqhre3602/25/2025 1:32 PM EST Choking, initial encounter Gastroesophageal reflux disease, unspecified whether esophagitis present Helicobacter pylori gastritis Gastroparesis EGD - THERAPEUTIC, EUS, OR TUBE UOPLMQNSLPFRMVddwibv77/04/2025 1:26 PM EST Choking, initial encounter Gastroesophageal reflux disease, unspecified whether esophagitis present Helicobacter pylori gastritis Gastroparesis BREATH TEST H TRNPINImlsnxg86/28/2025 Helicobacter pylori gastritis PT ED DIGESTIVE RZKKXQL1702/18/2025 HEPATIC FUNCTION PCKKtdpiqe02/27/2025 11:36 AM EDT Metabolic dysfunction-associated steatotic liver disease (MASLD) PT ED PATIENT QYHDRREMNYM01/24/2025 EXERCISE STRESS ECG (WITHOUT IMAGING)Umzlyub2001/08/2025 10:15 AM EDT Syncope, unspecified syncope type HEPATITIS C ANTIBODY IA WITH NKPKGQOKVBUYNdurfpu99/03/2025 3:01 PM EST Elevated LFTs BRBPR (bright red blood per rectum) from Last 3 Months or Most Recently Relevant to Health Maintenance Results * CYTOLOGY NON-ELECTRONIC TECHNOLOGIST (02/25/2025 1:32 PM EST)ComponentValueRef RangeTest Method Analysis TimePerformed AtPathologist SignatureCase ReportMedical Cytology Report ? Case: [id number] ? Authorizing Provider: ??Grayson Peter MD ? Collected: ? 02/25/2025 01:32 PM ? Ordering Location: ? Ambulatory Surgery ? Received: ?02/26/2025 03:51AM ? Pathologist: ? George Ware MD ? Specimen: ?Esophagus, r/o melissa ? 02/27/2025 4:03 PM [facility] MAIN LABFINAL DIAGNOSISA - Esophagus, [place] - r/o melissa Negative for malignant cells. No fungal elements seen. 02/27/2025 4:03 PM [facility] MAIN LAB at 1603 ESTGross DescriptionA. Esophagus 20 cc clear colorless fluid with brush with particles. ThinPrep prepared. 02/27/2025 4:03 PM [facility] MAIN LABClinical GfmclfhM12.308A - Choking, initial encounter [ICD-10-CM] K21.9 - Gastroesophageal reflux disease, unspecified whether esophagitis present [ICD-10-CM] K29.70, B96.81 - Helicobacter pylori gastritis [ICD-10-CM] K31.84 - Gastroparesis [ICD-10-CM] 02/27/2025 4:03 PM [facility] LABPerforming LabTechnical component, department helper screening performed at: [facility], [address] [place] [address] CLIA: [id number] Diagnostic interpretation performed at: [facility], [address] [place] [address] [id number] CLIA# [id number] Continuous Pillowcase Cutter: Alhaji Galvez MD 02/27/2025 4:03 PM [facility] LABDisclaimerLaboratory Developed Test (LDT) Disclaimer: Performance characteristics of immunohistochemical, immunofluorescent, and chromogenic in-situ hybridization tests have been determined by the performing laboratory within the [facility] Department of Pathology and Laboratory Medicine ([facility], [facility], [facility], [facility], [facility], [facility], or [facility]) in a manner consistent with CLIA requirements. One or more of these tests may not have been cleared or approved by the FDA. The [facility] Department of Pathology and Laboratory Medicineis regulated under CLIA as qualified to perform high-complexity testing. These tests are used for clinical purposes. These should not be regarded as investigational or for research. Positive and negative controls stain appropriately.02/27/2025 4:03 PM EST [facility] LABSpecimen (Source)Anatomical Location / Laterality Collection Method / VolumeCollection TimeReceived TimeBrushSPECIMEN FROM ESOPHAGUS / Akxfurw0902/25/2025 1:32 PM EST02/26/2025 3:51 AM EST Narrative Authorizing ProviderResult TypeResult StatusNoma [facility] MDCYTOLOGYFinal Result Performing OrganizationAddressCity/State/[place] [address], * EGD - THERAPEUTIC, EUS, OR TUBE INTERVENTIONS (02/25/2025 1:26 PM EST) Anatomical RegionLateralityModalityOtherSpecimen (Source)Anatomical Location / LateralityCollection Method / VolumeCollection TimeReceived Time02/25/2025 1:26 PM EST Narrative 02/25/2025 1:43 PM [facility] Gastroenterology Gastrointestinal Endoscopy Patient Name: Orion Barnett Procedure Date: 02/25/2025 1:26 PM Date of : 1990 Admit Type: Outpatient Age: 34 Room: [facility] 2 Gender: Female Note Status: Finalized Attending MD: Grayson Peter MD, [id number] Procedure: ? Upper GI endoscopy Indications: ? [...] by the physician, ? the nurse, the sales technician and the termite control technician in ? the procedure room. Mental [...] Procedure Code(s): ? --- Professional --- ? 80115, Esophagogastroduodenoscopy, flexible, ? transoral; diagnostic, including collection of ? specimen(s) by brushing or washing, when performed ? (separate procedure) Diagnosis Code(s): ? --- Professional --- ? K21.00, Gastro-esophageal reflux disease with ? esophagitis, without bleeding ? K31.84, Gastroparesis ? R13.10, Dysphagia, unspecified CPT copyright 2020 [employer]. All rights reserved. The codes documented in this report are preliminary and upon fisher crab review may be revised to meet current compliance requirements. Scope In: 1:29:08 PM Scope Out: 1:31:54 PM Grayson Peter MD 02/25/2025 1:41:26 PM This report has been signed electronically by Grayson Peter MD Number of Addenda: 0 Note Initiated On: 02/25/2025 1:26 PM Estimated Blood Loss: ? Estimated blood loss: none. Authorizing ProviderResult TypeResult Liz Peter MDDIGESTIVE DISEASEFinal Result * PT ED DIGESTIVE DISEASE (02/18/2025)Specimen (Source)Anatomical Location / LateralityCollection Method / VolumeCollection TimeReceived Time02/18/2025 Narrative MUKUL - 03/21/2025 Provider TATUM your patient ORION BARNETT has not started their Mukul program, time has . Mukul program: UPPER GI ENDOSCOPY (EGD) Authorizing ProviderResult TypeResult Liz Peter MDEMMIFinal Result Performing OrganizationAddressCity/State/ZIP CodePhone Number MUKUL * BREATH TEST FOR HELICOBACTER PYLORI (02/18/2025)Specimen (Source)Anatomical Location / LateralityCollection Method / VolumeCollection TimeReceived Time BreathBREATH / Gaqobka0402/18/2025 Impressions [facility] - 02/18/2025 Negative Narrative Authorizing ProviderResult TypeResult Liz Peter MDLABORATORYFinal Result Performing OrganizationAddressCity/State/ZIP CodePhone Number [facility] [address] [place] [address] * (ABNORMAL) HEPATIC FUNCTION PNL (02/17/2025 11:36 AM EDT)ComponentValueRef RangeTest MethodAnalysis TimePerformed AtPathologist SignatureAlbumin4.43.9 - 4.9 g/dL02/17/2025 12:44 PM [facility] LABORATORYBilirubin, Total0.20.2 - 1.3 mg/dL02/17/2025 12:44 PM [facility] LABORATORYBilirubin, Direct0.1 <0.3 mg/dL02/17/2025 12:44 PM [facility] LABORATORYAlkaline Phosphatase 130(H)34 - 123 U/L1 12:44 PM [facility] JRNJTZXXWWIYL1339 - 35 U/L1 12:44 PM [facility] JNKVQFBZCKCSC15(H)7 - 38 U/L1 12:44 PM [facility] LABORATORYProtein, Total7.36.3 - 8.0 g/dL02/17/2025 12:44 PM [facility] LABORATORYSpecimen (Source)Anatomical Location / LateralityCollection Method / VolumeCollection TimeReceived TimeBloodBLOOD SPECIMEN / UnknownVenipuncture / Ogtvirm0202/17/2025 11:36 AM EDT1 11:36 AM EDT Narrative Authorizing ProviderResult TypeResult StatusGrayson Peter MDLABORATORYFinal Result Performing OrganizationAddressCity/State/ZIP CodePhone Number [facility] [address] [facility] [place] [address], [place] * PT ED PATIENT INFORMATION (02/14/2025)Specimen (Source)Anatomical Location / LateralityCollection Method / VolumeCollection TimeReceived Time02/14/2025 Narrative MUKUL - 02/14/2025 Provider TATUM your patient ORION BARNETT started their Mukul [...] ECG Report: Exercise Stress ECG (without Imaging) [place] [address] Date of service: 01/08/2025 10:15:05 AM TACKER Ordering physician: SOLO MORA crisis specialist: Elvia Caicedo Sr Technical Sales Consultant: Acacia Simeon Interpreting physician: Gracie Villanueva MD [...] mmHg. The patient exercised according to the Ho 10% protocol. The estimated end-exercise MET level [...] 154/92 mmHg. The double product achieved was [address]. Medications: ? Last Used INDERAL ?2 Days METOPROLOL METOPROLOL METOPROLOL Resting ECG: Sinus Tachycardia Exercise Protocol: [place] 10% Stress Exercise Table: +-----+ +--------+ +---+---+---+----+---+----+ [...] (HRR): 22 bpm Rate Pressure Product (RPP): 33216 Stress Exercise Observations: Reason for test termination: [...] equation for determining estimated MET values for [facility] stress tests changed. Comparison of test results before and after that date may show a change in estimated MET values for peak/max exercise despite a test duration that is similar in length. The validity of the new FRIEND equation for exercise METS is endorsed by the [place] [employer]. Timmy P, Cassius LOPEZ, Vicente R, Balaji J, Enrique J. New Generalized Equation for Predicting Maximal Oxygen Uptake (from the Fitness Registry and the Importance of Exercise National Database). The [place] Journal of [employer]iology. 2017;120(4):688-692). Final Stress Tack Picker Report: Exercise Stress ECG (without Imaging) [facility] FANTASMA-2 Date of service: 01/08/2025 10:15:05 AM TACKER Supervising physician: Milli Cotter MD PATIENT: Name: ORION BARNETT Age: 34 years Gender: F The supervising physician was in the department and immediately available. Final See Link below for Image Authorizing ProviderResult TypeResult StatusArskaiser Mora MDSTRESSFinal Result Performing OrganizationAddressCity/State/ZIP CodePhone Number [facility] [address] [place] [address] * HEPATITIS C ANTIBODY IA WITH CONFIRMATION (04/26/2024 3:01 PM EST)Component ValueRef RangeTest MethodAnalysis TimePerformed AtPathologist SignatureHep C Antibody OGBemwgnxpCuovvowr44/04/2025 10:55 AM ESTMIAMI VALLEY HOSPITAL LABComment:The result suggests no evidence of active infection with Hepatitis C virus. Should recent infectionbe suspected, repeat testing may be considered 4-6 weeks after this draw.Specimen (Source)Anatomical Location / Laterality Collection Method / VolumeCollection TimeReceived TimeBloodBLOOD SPECIMEN / UnknownVenipuncture / Lxjlqqe4804/26/2024 3:01 PM EST04/26/2024 3:02 PM EST Narrative Authorizing ProviderResult TypeResult StatusIliana REYESCLABORATORYFinal ResultPerforming OrganizationAddressCity/State/ZIP CodePhone Number [facility] [address] [facility] [address] [place] [address], [place] from Last 3 Months or Most Recently Relevant to Health Maintenance Insurance Care Teams Team MemberRelationshipSpecialtyStart DateEnd Date Emerald Sanchez MD [address] [place] [address] PCP - GeneralFamily Bophosnb61/4/19 Deena Osorio, CARBON CLEANER [address] [place] [address] ReferringFamily Aoeczlxl97/11/24 Darwin Starr DO [address] [place] [address] Dr [place] [address] ReferringOb/Gyn07/02/24
--- OUTSIDE RECORDS SUMMARY | 2025-03-27 11:46 | XMS_ITS | Encounter Summary ---
Author Organization [facility] Address [address] [facility] [place] [address] Care Team Providers Care Professor Of Kinesiology Name Role Phone Emerald Sanchez MD Unavailable Emerald Sanchez MD Primary Care Provider [phone] Reason for Visit * ReasonOnset DateCommentsMed Cqtvtn9903/22/2025 Encounter Details DateTypeDepartmentCare Team (Latest Contact Info)Jzbueglinny52/29/2025Refill [facility] [place] [facility] [address] [place] [address] Sandy Hammond PA [address] [facility] [address] [place] [address] Attention deficit hyperactivity disorder (ADHD), predominantly inattentive [...] relatives?Once a week05/09/2024How often do you attend episcopalian or denominational services?Never05/09/2024Do you belong to any clubs or organizations such as episcopalian groups, unions, fraCatapooolt or athletic groups, or school groups?Yes05/09/2024How often do you attend meetings of the clubs or organizations you belong to?Never05/09/2024re you , , , , never , or living with a partner?Yvdunaj7505/09/2024 AUDIT-CAnswerDate RecordedQ1: How often do you have a drink containing alcohol? 2-4 times a month05/09/2024Q2: How many drinks containing alcohol do you have on a typical day when you are drinking?1 or Q3: How often do you have six or more drinks on one occasion?Less than ujdvhbo1205/09/2024Overall Financial Resource Strain (CARDIA)AnswerDate RecordedHow hard is it for you to pay for the very basics like food, housing, medical care, and heating?Not hard at all 05/09/2024PHQ-2AnswerDate RecordedPatient Health Questionnaire-2 Score4 01/06/2025[facility] [place] [facility] - Occupational Stress QuestionnaireAnswerDate [...] steady place to sleep or slept in [facility] (including now)?No04/18/2023Housing Stability Vital SignAnswerDate [...] InformationValueDate RecordedSex Assigned at BirthNot on fileLegal KfvOihdtw88/15/2023 7:29 PM EDTGender Identity Not on fileSexual OrientationNot on filedocumented as of this encounter Plan of Treatment DateTypeDepartmentCare Team (Latest Contact Info)Nyayhigfdhl32/08/2025 4:50 PM ESTOffice Visit [facility] [address] [facility] [place] [address] Milton Duvall, DPM FACFAS [address] [facility] [place] [address] 04/08/2025 3:00 PM ESTOffice Visit [facility] [address] [facility] [address] [place] [address] Emerald Sanchez MD [address] [facility] [address] [place] [address] 06/05/2025 3:00 PM ESTOffice Visit [facility] [address] [facility] [address] [place] [address] Jatin Cabrera MD [address] [facility] [address], [place] [address] documented as of this encounter Goals GoalPatient [...] MemberRelationshipSpecialtyStart DateEnd Date Emerald Sanchez MD [address] [facility] [address] [place] [address] PCP - Medical [employer] [employer]7/04/1911 Emerald Sanchez MD [address] [facility] [address] [place] [address] PCP - GeneralFaokabdelrahman Medicine08/30/22documented as of this encounter
--- OUTSIDE RECORDS SUMMARY | 2025-03-27 11:46 | XMS_ITS | Patient Health Record ---
Author Organization [facility] [place] Address [address] [place] [address] Care Team Providers Care Pyrotechnist Name Role Phone Emerald Sanchez MD Primary Care Provider Bernardo Busch Unavailable [phone] Allergies No Known Allergies Results Component Value Reference Range Notes LIVER PROFILE Reviewed date:08/15/2024 07:01:06 PM Interpretation: Performing Lab: Notes/Report: Comment from this am blood [facility] , Bilirubin Total 0.3 0.2-1.0 mg/dL Bilirubin Direct0.10.0-0.2 mg/dLAspartate Amino Oppzzmysuiv6825-62 U/LAlanine Wbhqufcbpuyyglwg0993-37 U/LAlkaline Fbbgvelmoyg55955-897 U/LTotal Protein6.76.4- 8.2 g/dLAlbumin Level3.53.4-5.0 g/dLGlobulin3.2Albumin Globulin Ratio1.1 Performing Lab:see noteML - [facility] LBLIVER PROFILE Reviewed date:08/16/2024 08:58:07 AM Interpretation: Performing Lab: Notes/Report: [facility] ,Bilirubin Total0.40.2-1.0 mg/dLBilirubin Direct0.10.0-0.2 mg/dLAspartate Amino Qvkfnubqfjr2463-47 U/LAlanine Khrfjcyadoojfanv7079-09 U/LAlkaline Waicqbegupt517 46-116 U/LTotal Protein6.46.4-8.2 g/dLAlbumin Level3.23.4-5.0 g/dLGlobulin3.2 Albumin Globulin Ratio1.0Performing Lab:see noteML - [facility] Reason For Referral No Information Medications Medication [...] Status W/U Status Risk Notes Problem Hypertension (59395215) HTN (hypertension ) (I10) ActiveconfirmedProblemAlcohol withdrawal delirium (7619450)Alcoholic intoxication, with delirium (F10.121)ActiveconfirmedProblemAltered mental status associated with intoxication (F10.959)Activeconfirmed Vital Signs Heart Rate 105 /min 03/27/2024 Dvtykwrsxif57.1 degrees Mcknyphbuv40/04/9594Gsnhehtq01 %03/27/20247435Sprkjf86 in 03/27/20245825Dzfwct862 lbs105/28/2023BMI34.93 kg/m203/27/2024 Encounters Encounter Location Date Provider Diagnosis [facility] [address] [place] [address] 04/15/2024 [facility] [place] (PODIATRY)[address] [place] [address]/[facility] [place] (PODIATRY)[address] [place] [address]/[facility] SatelliteSprain of other ligament of right ankle, sequela [...] Coverage End Date MMO [address] [place], [place] [phone] [id number] Belgica Barnett Self - patie nt is the insured Medical (General) History Medical History History ICD Code asthma liver diseasetuberculosisSurgical History Surgery Date(Month/Year) gall bladder removal c section x 3
--- OUTSIDE RECORDS SUMMARY | 2025-03-27 11:46 | XMS_ITS | Clinical Summary ---
Author Organization [facility] Address [address] [facility], [address] [place] [address] Care Team Providers Care Loss Prevention Analyst Name Role Phone Emerald Sanchez MD Primary Care Provider [phone] Allergies Active AllergyReactionsCriticalityNoted DateCommentsCat DanderAnaphylaxisHigh 11/30/2022Iodinated Contrast MediaAnaphylaxis,Hives,JdrlawbBmoz04/20/2019Iodine Itching,Dbgdlwxr75/19/2019 Omnipaque 300: Patient experienced itching on her neck and left side of her face. Also, pt complained of tongue feeling itchy and feels like something is stuck in her throat . Patient received diphenhydramine (Benadryl) Gvhkbur6503/21/2023 Medications MedicationSigDispense QuantityRefillsLast FilledStart DateEnd DateStatus ALPRAZolam [...] DateDiagnosed DateCalculus of gallbladder without cholecystitis without anbealqmbfo25/30/2023cute pancreatitis without infection or necrosis 03/21/2023cute biliary pancreatitis without infection or telrdnjg11/28/2023 History of COVID-1917374Uuxndkzfbtdwh99/12/8272Dtijxno81/02/2023ipolar disorder, in partial remission, most recent episode manic09/23/2022ttention deficit hyperactivity disorder, predominantly inattentive type09/23/2022 Overview (03/22/2023): Last Assessment & Plan: Patient'sCurrent ADD is controlled with current dose No evidence of overuse or abuse Weight has been stable Encouraged Medication Holidays PDMP reviewed F/U routinely every 4 months Diverticular disease of colon09/23/2022Elevated liver tpfvmvq9509/23/2022Irritable bowel syndrome with fjfuzxsfuomf97/02/2023Mild intermittent asthma without akrcenqmxtcn18/02/1637Jdroitaeaaihkmdqvvfd06/10/2022therosclerosis of coronary artery without angina qynwxaeg17/25/2022Gastroesophageal reflux disease without czvfantatto59/17/2020 Encounters DateTypeDepartmentCare QfsvEjfqgzjnvll36/01/2025 11:59 PM ESTHospital Encounter [facility] Physical Therapy [address] [place] [address] [phone] Shivani Nunez PTA Discharge Disposition: Home or Self Care03/18/2025Telephone [facility] [address] [facility] [address] [place] [address] Joselo Peña DO Insurance Crcdqmcwthwd03/17/2025 7:00 AM EST - 03/10/2025 11:59 PM ESTHospital Encounter [facility] Physical Therapy [address] [place] [address] Camilla Chappell, PT Discharge Disposition: Home or Self Carefrom Last 3 Months Social History Tobacco UseTypesPacks/DayYears UsedDateSmoking Tobacco: FormerCigarettesQuit: 05/06/2008Smokeless Tobacco: Never Tobacco Cessation:Counseling Given: Not Answered Alcohol UseStandard Drinks/WeekCommentsNot Asked0 (1 standard drink = 0.6 oz pure alcohol)1 a week. Last 03/18/23[facility] UtilitiesAnswerDate RecordedIn the past [address], gas, oil, or water [employer] threatened to shut off services in your [...] steady place to sleep or slept in [facility] (including now)?No03/21/2023Housing Stability Vital SignAnswerDate RecordedIn the last 12 months, was there a time when you were not able to pay the mortgage or rent on time?No03/21/2023Number of Times Moved in the Last YearNot on file03/21/2023Homeless in the Last YearNot on file03/21/2023 Interpersonal Safety ([facility] HRSN)AnswerDate RecordedHow often does anyone, including family and friends, physically hurt you?Food Insecurity AnswerDate RecordedWithin the past 12 months, you worried that your food would run out before you got the money to buymore.Within the past 12 months, the food you bought just didn't last and you didn't have money to get more.Interpersonal Safety Domain Source: IP Abuse ScreeningAnswerDate RecordedRead-Only, Retired: Physical NutwvUwxail05/28/2023Read-Only, Retired: Verbal MwzanWjvign18/28/2023Read-Only, Retired: Emotional stlumMwuugf94/28/2023 Read-Only, Retired: Financial IrvrtHribni76/28/2023Read-Only, Retired: Sexual xhzavEtbpwf28/28/2023CommentsUnknownSex and Gender InformationValueDate RecordedSex Assigned at BldqmNgypmg69/19/2024 12:06 PM EDTLegal SexFemale 06/03/2012 12:31 PM ESTGender UnzbvgrbIbbiwc92/19/2024 12:06 PM EDTSexual JfwpclxpownHmnjnhfi99/19/2024 12:06 PM EDT Last Filed Vital Signs Vital SignReadingTime TakenCommentsBlood Vlfrdwvq926/6703/24/2023 9:43 AM EST Akxkl594503/24/2023 9:43 AM BERQqyntmtdbjm20.8 ??C (98.2 ??F)03/24/2023 9:43 AM ESTRespiratory Xdxc916605/25/2022 9:43 AM ESTOxygen Lyyekibnss532%03/24/2023 9:43 AM ESTInhaled Oxygen Concentration--Uhecny46.9 kg (156 lb 6.4 oz)03/24/2023 2:57 AM IPCGrmbkk179.5 cm (5' 2.01 )03/21/2023 11:15 PM ESTBody Mass Index28.6 03/21/2023 11:15 PM EST Plan of Treatment DateTypeDepartmentCare Team (Latest Contact Info)Yhucjkyreqi64/09/2025 4:30 PM ESTAppointment [facility] [address] [place] [address] [phone] Shivani Nunez PTA 04/08/2025 5:15 PM ESTAppointment [facility] [address] [place] [address] Shivani Nunez, ELECTROTYPE MOLDER 04/14/2025 5:15 PM ESTAppointment [facility] Physical Therapy [address] [place] [address] Shivani Nunez, ELECTROTYPE MOLDER 04/16/2025 10:30 AM ESTOffice Visit [facility] [address] [facility] [address] [place] [address] Joselo Peña, [address] [facility] [address] [place] [address] New Patient, Medical [place], 3 month visits, PG Fee $200, Mailed Packet 04/21/2025 5:15 PM ESTAppointment [facility] Physical Therapy [address] [place] [address] Shivani Nunez, ELECTROTYPE MOLDER 04/28/2025 5:15 PM ESTAppointment [facility] Physical Therapy [address] [place] [address] Shivani Nunez, ELECTROTYPE MOLDER 05/05/2025 5:15 PM ESTAppointment [facility] Physical Therapy [address] [place] [address] Shivani Nunez, ELECTROTYPE MOLDER 05/12/2025 9:00 AM ESTAppointment [facility] Physical Therapy [address] [place] [address] Shivani Nunez, ELECTROTYPE MOLDER 05/19/2025 5:15 PM ESTAppointment [facility] Physical Therapy [address] [place] [address] Shivani Nunez, ELECTROTYPE MOLDER Health MaintenanceDue DateLast DoneCommentsVaricella vaccine (2 of 2 - 2-dose childhood series)Depression Jwaflrjsyx04/07/2001HIV screen 09/29/2003Hepatitis C nbkhpb9209/28/2006HPV vaccine (2 - 3-dose series)11/30/2006 11/02/2006Pneumococcal 0-49 years Vaccine (1 of 2 - PCV)09/29/2007Flu vaccine (#1), 03/16/2020, 01/08/2018, Additional history exists COVID-19 Vaccine ( season)5011/02/2021, 04/29/2021, 1DTaP/Tdap/Td vaccine (7 - Td or Tdap), 02/05/2010, 12/28/1993, Additional history existsPolio txnitfwExlqknhhy56/16/1993, 06/09/1992, 05/21/1990, Additional history existsMeningococcal (ACWY) vaccine Aiiwascpx50/12/2007Hepatitis B cfhebrdLstzkygdy12/14/2007, 11/02/2006, 02/20/1998Hepatitis A vaccineAged OutNo longer eligible based on patient's age to complete this topicHib vaccineAged OutNo longer eligible based on patient's age to complete this topicMeningococcal B vaccineAged OutNo longer eligible based on patient's age to complete this topic Medical Devices ImplantedTypeAreaManufacturerDevice IdentifierShelf Expiration DateModel / Serial / LotClip Int L Polymer Ernie Lig Hem O Ernie (6ea/Pk) - [id number] Implanted:Qty: 1 on 03/23/2023 by [id number] / / [id number] Insurance Advance Directives * Full Code (Latest Code Status on File) Date ActivatedDate QbtvledwibxFoojhqhv65/28/2023 11:04 PM03/24/2023 6:54 PM Care Teams Team MemberRelationshipSpecialtyStart DateEnd Date Emerald Sanchez MD [facility]/02/18
--- OUTSIDE RECORDS SUMMARY | 2025-03-27 11:46 | XMS_ITS | Encounter Summary ---
Author Organization [facility] Address [address] [place] [address] Care Team Providers Care Assembly Machine Operator Name Role Phone Emerald Sanchez MD Unavailable Emerald Sanchez MD Primary Care Provider [phone] Encounter Details DateTypeDepartmentCare Team (Latest Contact Info)Seetitpqgnj54/04/2025amboo flowsheet [facility] [place] [facility] [address] [place] [phone] Sandy Hammond PA [address] [place] [address] Social History Tobacco UseTypesPacks/DayYears UsedDateSmoking Tobacco: Every [...] physically hurt by your partner or ex-partner?No 12/26/2023Within the last year, have you been raped or forced to have any kind of sexual activity by your partner or ex-partner?No04/18/2023Social Connection and Isolation PanelAnswerDate RecordedIn a typical week, how many times do you talk on the phone with family, friends, or neighbors?Twice a week05/09/2024How often do you get together with friends or relatives?Once a week05/09/2024How often do you attend adventist or buddhist services?Never05/09/2024Do you belong to any clubs or organizations such as adventist groups, unions, fraTitansan or athletic groups, or school groups?Yes05/09/2024How often do you attend meetings of the clubs or organizations you belong to?Never05/09/2024re you , , , , never , or living with a partner?Dpeqqhb2305/09/2024 AUDIT-CAnswerDate RecordedQ1: How often do you have a drink containing alcohol? 2-4 times a month05/09/2024Q2: How many drinks containing alcohol do you have on a typical day when you are drinking?1 or Q3: How often do you have six or more drinks on one occasion?Less than zuarupl5305/09/2024Overall Financial Resource Strain (CARDIA)AnswerDate RecordedHow hard is it for you to pay for the very basics like food, housing, medical care, and heating?Not hard at all 05/09/2024PHQ-2AnswerDate RecordedPatient Health Questionnaire-2 Score0 03/27/2025[facility] [place] of Occup[facility] Health - Occupational Stress QuestionnaireAnswerDate [...] steady place to sleep or slept in [place] (including now)?No04/18/2023Housing Stability Vital SignAnswerDate RecordedIn the last 12 months, was there a time when you were not able to pay the mortgage or rent on time?No05/09/2024In the past 12 months, how many times have you moved where you were living?t any time in the past 12 months, were you homeless or living in a [facility] (including now)?No 05/09/2024CommentsNoSex and Gender InformationValueDate RecordedSex Assigned at BirthNot on fileLegal BqqYmuphd52/15/2023 7:29 PM EDTGender Identity Not on fileSexual OrientationNot on filedocumented as of this encounter Plan of Treatment DateTypeDepartmentCare Team (Latest Contact Info)Kgvfwbceiqb87/08/2025 4:50 PM ESTOffice Visit [facility] [address] [facility] [place] [phone] Milton Duvall, DPM FACFAS [address] [facility] [place] [address] 04/08/2025 3:00 PM ESTOffice Visit [facility] [place] [facility] [address] [facility] [address] [place] [address] Emerald Sanchez MD [address] [facility] 110 [place] [address] 06/05/2025 3:00 PM ESTOffice Visit [facility] [place] [facility] [address] [facility] [address] [place] [address] Jatin Cabrera MD [address] [phone] documented as of this encounter Goals GoalPatient [...] MemberRelationshipSpecialtyStart DateEnd Date Emerald Sanchez MD [address] [facility] [address] [place] [address] PCP - Medical [place] [employer]10/23/1911 Emerald Sanchez MD [address] [facility] [address] [place] [address] PCP - GeneralFamily Medicine08/30/22documented as of this encounter
--- OUTSIDE RECORDS SUMMARY | 2025-03-27 11:46 | XMS_ITS | Encounter Summary ---
Author Organization [facility] Address [address] [facility] [place] [address] Care Team Providers Care Dietetic Technician Name Role Phone Emerald Sanchez MD Unavailable Emerald Sanchez MD Primary Care Provider [phone] Encounter Details DateTypeDepartmentCare Team (Latest Contact Info)Aldhxmsafub41/21/2025Orders Only [facility] [address] [place] [address] Kendal Encarnacion MA Social History Tobacco UseTypesPacks/DayYears UsedDateSmoking Tobacco: Every [...] relatives?Once a week05/09/2024How often do you attend spiritism or holiness services?Never05/09/2024Do you belong to any clubs or organizations such as spiritism groups, unions, fraternal or athletic groups, or school groups?Yes05/09/2024How often do you attend meetings of the clubs or organizations you belong to?Never05/09/2024re you , , , , never , or living with a partner?Tpiblsq4605/09/2024 AUDIT-CAnswerDate RecordedQ1: How often do you have a drink containing alcohol? 2-4 times a month05/09/2024Q2: How many drinks containing alcohol do you have on a typical day when you are drinking?1 or Q3: How often do you have six or more drinks on one occasion?Less than aiynlcd9105/09/2024Overall Financial Resource Strain (CARDIA)AnswerDate RecordedHow hard is it for you to pay for the very basics like food, housing, medical care, and heating?Not hard at all 05/09/2024PHQ-2AnswerDate RecordedPatient Health Questionnaire-2 Score4 01/06/2025[facility] [place] of Occupational Health - Occupational Stress QuestionnaireAnswerDate [...] InformationValueDate RecordedSex Assigned at BirthNot on fileLegal KhrPfkobw17/15/2023 7:29 PM EDTGender Identity Not on fileSexual OrientationNot on filedocumented as of this encounter Plan of Treatment DateTypeDepartmentCare Team (Latest Contact Info)Hkbaobfevjk27/08/2025 4:50 PM ESTOffice Visit [facility] [address] [place] [address] Milton Duvall DPM FACFAS [address] [facility] [place] [address] 04/08/2025 3:00 PM ESTOffice Visit [facility] [place] [facility] [address] [facility] 110 [place] [address] Emerald Sanchez MD [address] [facility] 110 [place] [address] 06/05/2025 3:00 PM ESTOffice Visit [facility] [place] [facility] [address] [facility] [address] [place] [address] Jatin Cabrera MD [address] [facility] [address] [phone] documented as of this encounter Goals GoalPatient Goal TypeAssociated ProblemsRecent ProgressPatient-Stated?Author Help patient manage antidepressant medication Care PlanPatient on antidepressant monitoring Emerald Rain MD Baseline PHQ-9 Care PlanBaseline PHQ-9Emerald Underwood, MDdocumented as of this encounter Procedures Procedure NamePriorityDate/TimeAssociated DiagnosisCommentsHPV/PAP COTEST, HWQQPMEYNzmnmll62/06/2025 12:00 AM ESTdocumented in this encounter Results * HPV/PAP COTEST, EXTERNAL (02/27/2025 12:00 AM EST) Narrative Authorizing ProviderResult TypeResult StatusAmy Yessy PALAB CYTOLOGY ORDERABLES Final ResultPerforming OrganizationAddressCity/State/ZIP CodePhone Number EXTERNAL LAB documented in this encounter Visit Diagnoses Not on filedocumented in this encounter Additional Health Concerns Active ProblemsNoted DateDiagnosed DatePatient on antidepressant monitoring plan 4Baseline PHQ-904AssessmentNoted TimePHQ-9 Depression Total Score: 13001/06/2025 10:55 AM EDTdocumented as of this encounter Care Teams Team MemberRelationshipSpecialtyStart DateEnd Date Emerald Sanchez MD [address] [facility] 110 [place] [address] PCP - Medical [place] [employer]10/23/1911 Emerald Sanchez MD [address] [facility] 110 [place] [address] PCP - GeneralFamily Medicine08/30/22documented as of this encounter
--- OUTSIDE RECORDS SUMMARY | 2025-03-27 11:46 | XMS_ITS | Patient Health Record ---
Author Organization [facility] Address [address] [place] [address] Care Team Providers Care Story Analyst Name Role Phone Keegan Trujillo [phone] Reason For Referral No Information Medications Medication SIG (Take, Route, Frequency, Duration) Notes Start Date End Date Status diclofenac sodium 75 mg 1 tab(s) orally 2 times a day; Duration: 30 day(s) 4ActiveXanaxActiveAdderallActivebaclofenActiveVraylarActive Social History Tobacco Use: Social History Observation Description Date Details (start date - stop date) Never Smoker NA - NA AUDIT-C (Standard) Question Answer Notes Did you have a drink containing alcohol in the p ast year? No Movtsm2PsfdrqqoehurnuNjyxmvazPlrlmrj Control (Standard) Question Answer Notes Tobacco use: Nonsmoker Problems Problem Type SNOMED Code ICD Code Onset Dates Problem Status W/U Status Risk Notes Problem Sprain of tibiofibul ar ligament of right ankle (disorder) (72916636986582205) Sprain of anterior talofibular ligament of right ankle, initial encounter (S93.491A) Activeconfirmed Plan Of Treatment Pending Test Test Name Order Date SCC- PT/OT EVAL AND TREAT 3X/WEEK FOR 4 WEEKS 02/05/2024 Insurance Providers Payer Name Payer Address Payer Phone Subscriber Number Group Number Insured Name Patient Relationship to Insured Coverage Start Date Coverage End Date [facility] [address] [place] [address] [id number] Vanesa HARPER - patient is the insured
--- OUTSIDE RECORDS SUMMARY | 2025-03-27 11:46 | XMS_ITS | Encounter Summary ---
Author Organization [facility] Address [address] [place] [address] Care Team Providers Care Yard Jockey Name Role Phone Emerald Sanchez MD Unavailable Emerald Sanchez MD Primary Care Provider [phone] Encounter Details DateTypeDepartmentCare Team (Latest Contact Info)Djxcqrruauy13/04/2025Travel Social History Tobacco UseTypesPacks/DayYears UsedDateSmoking Tobacco: Every [...] relatives?Once a week05/09/2024How often do you attend christian or hinduism services?Never05/09/2024Do you belong to any clubs or organizations such as christian groups, unions, fraternal or athletic groups, or school groups?Yes05/09/2024How often do you attend meetings of the clubs or organizations you belong to?Never05/09/2024re you , , , , never , or living with a partner?Xfnlsau8505/09/2024 AUDIT-CAnswerDate RecordedQ1: How often do you have a drink containing alcohol? 2-4 times a month05/09/2024Q2: How many drinks containing alcohol do you have on a typical day when you are drinking?1 or Q3: How often do you have six or more drinks on one occasion?Less than axthhdi6805/09/2024Overall Financial Resource Strain (CARDIA)AnswerDate RecordedHow hard is it for you to pay for the very basics like food, housing, medical care, and heating?Not hard at all 05/09/2024PHQ-2AnswerDate RecordedPatient Health Questionnaire-2 Score0 03/27/2025[facility] [place] of Occupational Health - Occupational Stress QuestionnaireAnswerDate [...] steady place to sleep or slept in [place]ter (including now)?No04/18/2023Housing Stability Vital SignAnswerDate RecordedIn the [...] InformationValueDate RecordedSex Assigned at BirthNot on fileLegal FwaAnvfxy31/15/2023 7:29 PM EDTGender Identity Not on fileSexual OrientationNot on filedocumented as of this encounter Functional Status * Over the past 2 weeks, how often have you been bothered by any of the following problems?QuestionAnswerDate of AssessmentAuthorLittle interest or pleasure in doing thingsNot at all03/27/2025 10:54 AM Marie Hughes LPN Feeling down, depressed, or hopelessNot at all03/27/2025 10:54 AM Marie Hughes LPNPatient Health Questionnaire-2 Hduwx35805/28/2024 10:54 AM Marie Hughes LPN documented as of this encounter Plan of Treatment DateTypeDepartmentCare Team (Latest Contact Info)Otgzelaerkn28/08/2025 4:50 PM ESTOffice Visit [facility] [address] [place] [address] Milton Duvall, DPM FACFAS [address] [facility] [place] [address] 04/08/2025 3:00 PM ESTOffice Visit [facility] [place] [address] [place] [address] [place] [address] Emerald Sanchez MD [address] [place] [address] [place] [address] 06/05/2025 3:00 PM ESTOffice Visit [facility] [place] [facility] [address] [facility] [address] [place] [address] Jatin Cabrera MD [address] [facility] [address] [phone] documented as of this encounter Goals GoalPatient [...] MemberRelationshipSpecialtyStart DateEnd Date Emerald Sanchez MD [address] [place] [address] PCP - Medical [place] [employer]10/23/1911 Emerald Sanchez MD [address] [address] [place] [address] PCP - GeneralFamily Medicine08/30/22documented as of this encounter
--- OUTSIDE RECORDS SUMMARY | 2025-03-27 11:46 | XMS_ITS | Encounter Summary ---
Author Organization [facility] Address [address] [facility] [place] [address] Care Team Providers Care Filler Room Attendant Name Role Phone Emerald Sanchez MD Unavailable Emerald Sanchez MD Primary Care Provider Encounter Details DateTypeDepartmentCare Team (Latest Contact Info)Xmebjumhapq78/20/2025Travel Social History Tobacco UseTypesPacks/DayYears UsedDateSmoking Tobacco: Every [...] relatives?Once a week05/09/2024How often do you attend sabianist or catholic services?Never05/09/2024Do you belong to any clubs or organizations such as sabianist groups, unions, fraternal or athletic groups, or school groups?Yes05/09/2024How often do you attend meetings of the clubs or organizations you belong to?Never05/09/2024re you , , , , never , or living with a partner?Cwgxfbq1105/09/2024 AUDIT-CAnswerDate RecordedQ1: How often do you have a drink containing alcohol? 2-4 times a month05/09/2024Q2: How many drinks containing alcohol do you have on a typical day when you are drinking?1 or Q3: How often do you have six or more drinks on one occasion?Less than ywaivqy9405/09/2024Overall Financial Resource Strain (CARDIA)AnswerDate RecordedHow hard is it for you to pay for the very basics like food, housing, medical care, and heating?Not hard at all 05/09/2024PHQ-2AnswerDate RecordedPatient Health Questionnaire-2 Score4 01/06/2025[facility] [place] of Occupational Health - Occupational Stress QuestionnaireAnswerDate [...] homeless or living in a penitentiary (including now)?No 05/09/2024CommentsNoSex and Gender InformationValueDate RecordedSex Assigned at BirthNot on fileLegal GlnVkhcxu77/15/2023 7:29 PM EDTGender Identity Not on fileSexual OrientationNot on filedocumented as of this encounter Plan of Treatment DateTypeDepartmentCare Team (Latest Contact Info)Htnxztjizan98/08/2025 4:50 PM ESTOffice Visit [facility] [address] [place] [address] Milton Duvall, DPM FACFAS [address] [place] [address] 04/08/2025 3:00 PM ESTOffice Visit [facility] [place] [address] [facility] 110 [place] [address] Emerald Sanchez MD [address] [facility] 110 [place], [place] [address] 06/05/2025 3:00 PM ESTOffice Visit [facility] [place] [facility] [address] [place] [address] [place] [address] Jatin Cabrera MD [address] [facility] [place] [address] [place] [address] documented as of this encounter Goals GoalPatient [...] MemberRelationshipSpecialtyStart DateEnd Date Emerald Sanchez MD [address] [facility] 110 [place] [address] PCP - Medical [place] [employer]10/23/1911 Emerald Sanchez MD [address] [facility] 110 [place] [address] PCP - GeneralFamily Medicine08/30/22documented as of this encounter
--- OUTSIDE RECORDS SUMMARY | 2025-03-27 11:46 | XMS_ITS | Encounter Summary ---
Author Organization [facility] Address [address] [place] [address] Care Team Providers Care Animal Control Supervisor Name Role Phone Emerald Sanchez MD Unavailable Emerald Sanchez MD Primary Care Provider [phone] Encounter Details DateTypeDepartmentCare Team (Latest Contact Info)Pvymvvkicpr01/25/2025Travel Social History Tobacco UseTypesPacks/DayYears UsedDateSmoking Tobacco: Every [...] relatives?Once a week05/09/2024How often do you attend yazidi or catholic services?Never05/09/2024Do you belong to any clubs or organizations such as yazidi groups, unions, fraternal or athletic groups, or school groups?Yes05/09/2024How often do you attend meetings of the clubs or organizations you belong to?Never05/09/2024re you , , , , never , or living with a partner?Ryvgvgs0405/09/2024 AUDIT-CAnswerDate RecordedQ1: How often do you have a drink containing alcohol? 2-4 times a month05/09/2024Q2: How many drinks containing alcohol do you have on a typical day when you are drinking?1 or Q3: How often do you have six or more drinks on one occasion?Less than gneafqe8405/09/2024Overall Financial Resource Strain (CARDIA)AnswerDate RecordedHow hard is it for you to pay for the very basics like food, housing, medical care, and heating?Not hard at all 05/09/2024PHQ-2AnswerDate RecordedPatient Health Questionnaire-2 Score4 01/06/2025[place] [facility] [place] [facility] Occupational Health - Occupational Stress QuestionnaireAnswerDate [...] or living in a skilled nursing (including now)?No 05/09/2024CommentsNoSex and Gender InformationValueDate RecordedSex Assigned at BirthNot on fileLegal DbsEzhvkh42/15/2023 7:29 PM EDTGender Identity Not on fileSexual OrientationNot on filedocumented as of this encounter Plan of Treatment DateTypeDepartmentCare Team (Latest Contact Info)Pegeydocrzs81/08/2025 4:50 PM ESTOffice Visit [facility] [address] [place] [address] Milton Duvall, DPM [facility] [address] [place] [address] 04/08/2025 3:00 PM ESTOffice Visit [facility] [place] [facility] [address] [facility] [address] [place] [phone] Emerald Sanchez MD [address] [facility] [address] [place], [place] [address] 06/05/2025 3:00 PM ESTOffice Visit [facility] [facility] [address] [place] [address] [place] [address] Jatin Cabrera MD [address] [facility] [place] [facility] [address] [place] [address] documented as of this encounter Goals GoalPatient [...] MemberRelationshipSpecialtyStart DateEnd Date Emerald Sanchez MD [address] [facility] [address] [place] [address] PCP - Medical [place] [employer]10/23/1911 Emerald Sanchez MD [address] [facility] [address] [place] [address] PCP - GeneralFamily Medicine08/30/22documented as of this encounter
--- OUTSIDE RECORDS SUMMARY | 2025-03-27 11:46 | XMS_ITS | Patient Health Record ---
Author Organization [facility] [employer] Address [address] [facility] [address] Care Team Providers Care Bar Gauger And Lubricator Tender Name Role Phone Emerald Sanchez MD Primary Care Provider Mary Cortés MD, Brandyn Unavailable [phone] Allergies Allergen (clinical drug ingredient) Drug/Non Drug [...] alcohol in the p ast year? Yes Wiylyo8SvajgnibuqgbpqLwhrjahm Problems Problem Type SNOMED Code ICD Code Onset Dates Problem Status W/U Status Risk Notes Problem Postoperative care ( regime/therapy) (289667299) Encounter for postoperative care (Z48.89) ActiveconfirmedProblemCholecystitis (82240297)Cholecystitis (K81.9)Active confirmedProblemAcute pancreatitis (646469244)Acute biliary pancreatitis without infection or necrosis (K85.10)Activeconfirmed Plan Of Treatment No Information Insurance Providers Payer Name Payer Address Payer Phone Subscriber Number Group Number Insured Name Patient Relationship to Insured Coverage Start Date Coverage End Date Medical [facility] [address] [place] [address] [id number] Belgica Barnett Self - patient is the insured Medical (General) History Medical History History ICD Code asthma Surgical History Surgery Date(Month/Year) daVinci assisted laparoscopic cholecyste ctmy C-sections x 3colonoscopyegd
--- OUTSIDE RECORDS SUMMARY | 2025-03-27 11:46 | XMS_ITS | Encounter Summary ---
Author Organization [facility] Address [address] [facility] [place] [address] Care Team Providers Care Field Radio Technician Name Role Phone Emerald Sanchez MD Unavailable Emerald Sanchez MD Primary Care Provider [phone] Reason for Visit * ReasonOnset DateCommentsMed Esactm2003/22/2025 Encounter Details DateTypeDepartmentCare Team (Latest Contact Info)Pbrbyygyoex96/29/2025Refill [facility] [address] [place] [address] [place] [address] Emerald Sanchez MD [address] [facility] [address] [place] [address] Hypercholesterolemia; Major depressive disorder, recurrent, moderate (HCC) Social History Tobacco UseTypesPacks/DayYears UsedDateSmoking Tobacco: Every [...] relatives?Once a week05/09/2024How often do you attend mandaeism or denominational services?Never05/09/2024Do you belong to any clubs or organizations such as mandaeism groups, unions, fraternal or athletic groups, or school groups?Yes05/09/2024How often do you attend meetings of the clubs or organizations you belong to?Never05/09/2024re you , , , , never , or living with a partner?Bhgouhj9205/09/2024 AUDIT-CAnswerDate RecordedQ1: How often do you have a drink containing alcohol? 2-4 times a month05/09/2024Q2: How many drinks containing alcohol do you have on a typical day when you are drinking?1 or Q3: How often do you have six or more drinks on one occasion?Less than dzntnyf6405/09/2024Overall Financial Resource Strain (CARDIA)AnswerDate RecordedHow hard is it for you to pay for the very basics like food, housing, medical care, and heating?Not hard at all 05/09/2024PHQ-2AnswerDate RecordedPatient Health Questionnaire-2 Score4 01/06/2025[facility] [place] of Occupational Health - Occupational Stress QuestionnaireAnswerDate [...] steady place to sleep or slept in [facility] (including now)?No04/18/2023Housing Stability Vital SignAnswerDate RecordedIn the [...] InformationValueDate RecordedSex Assigned at BirthNot on fileLegal CtgVofmrz17/15/2023 7:29 PM EDTGender Identity Not on fileSexual OrientationNot on filedocumented as of this encounter Plan of Treatment DateTypeDepartmentCare Team (Latest Contact Info)Tejmfmzxakj09/08/2025 4:50 PM ESTOffice Visit [facility] [address] [place] [address] Milton Duvall, DPM FACFAS [address] [facility] [place] [address] 04/08/2025 3:00 PM ESTOffice Visit [facility] [place] [facility] [address] [facility] [address] [place] [address] Emerald Sanchez MD [address] [place] [address] [place] [address] 06/05/2025 3:00 PM ESTOffice Visit [facility] [address] [place] [address] Jatin Cabrera MD [address] [facility] [address] [address] documented as of this encounter Goals GoalPatient Goal TypeAssociated ProblemsRecent ProgressPatient-Stated?Author Help patient manage antidepressant medication Care PlanPatient on antidepressant monitoring Emerald Rain MD Baseline PHQ-9 Care PlanBaseline PHQ-9Emerald Underwood, MDdocumented as of this encounter Visit Diagnoses Diagnosis Hypercholesterolemia Pure hypercholesterolemia Major depressive disorder, recurrent, moderate (HCC) Major depressive disorder, recurrent episode, moderate documented in this encounter Additional Health Concerns Active ProblemsNoted DateDiagnosed DatePatient on antidepressant monitoring plan 4Baseline PHQ-904AssessmentNoted TimePHQ-9 Depression Total Score: 13001/06/2025 10:55 AM EDTdocumented as of this encounter Care Teams Team MemberRelationshipSpecialtyStart DateEnd Date Emerald Sanchez MD [address] [place] [address] [place] [address] PCP - Medical [place] [employer]10/23/1911 Emerald Sanchez MD [address] [place] [address] [place] [address] PCP - GeneralFamily Medicine08/30/22documented as of this encounter
--- OUTSIDE RECORDS SUMMARY | 2025-03-27 11:46 | XMS_ITS | Encounter Summary ---
Author Organization [facility] Address [address] [facility] [place] [address] Care Team Providers Care Email Campaign Manager Name Role Phone Emerald Sanchez MD Unavailable Emerald Sanchez MD Primary Care Provider [phone] Encounter Details DateTypeDepartmentCare Team (Latest Contact Info)Fduutdunnyi75/21/2025Travel Social History Tobacco UseTypesPacks/DayYears UsedDateSmoking Tobacco: Every [...] relatives?Once a week05/09/2024How often do you attend sabianism or mormonism services?Never05/09/2024Do you belong to any clubs or organizations such as sabianism groups, unions, fraternal or athletic groups, or school groups?Yes05/09/2024How often do you attend meetings of the clubs or organizations you belong to?Never05/09/2024re you , , , , never , or living with a partner?Ymievzt5605/09/2024 AUDIT-CAnswerDate RecordedQ1: How often do you have a drink containing alcohol? 2-4 times a month05/09/2024Q2: How many drinks containing alcohol do you have on a typical day when you are drinking?1 or Q3: How often do you have six or more drinks on one occasion?Less than hizaofz1505/09/2024Overall Financial Resource Strain (CARDIA)AnswerDate RecordedHow hard is it for you to pay for the very basics like food, housing, medical care, and heating?Not hard at all 05/09/2024PHQ-2AnswerDate RecordedPatient Health Questionnaire-2 Score4 01/06/2025[facility] [place] of Occupational Health - Occupational Stress QuestionnaireAnswerDate [...] InformationValueDate RecordedSex Assigned at BirthNot on fileLegal ArbBmmydk11/15/2023 7:29 PM EDTGender Identity Not on fileSexual OrientationNot on filedocumented as of this encounter Plan of Treatment DateTypeDepartmentCare Team (Latest Contact Info)Sjbbhdtklsx54/08/2025 4:50 PM ESTOffice Visit [facility] [address] [place] [address] Milton Duvall, DPM FACFAS [address] [place] [address] 04/08/2025 3:00 PM ESTOffice Visit [facility] [place] [facility] [address] [facility] [address] [place] [address] Emerald Sanchez MD [address] [facility] [address] [place], [place] [address] 06/05/2025 3:00 PM ESTOffice Visit [facility] [facility] [address] [place] [address] Jatin Cabrera MD [address] [facility] [address] [place] [address] documented as of this encounter Goals GoalPatient [...] MemberRelationshipSpecialtyStart DateEnd Date Emerald Sanchez MD [address] [facility] [address] [place] [address] PCP - Medical [employer]10/23/1911 Emerald Sanchez MD [address] [facility] [address] [place] [address] PCP - GeneralFamily Medicine08/30/22documented as of this encounter
--- OUTSIDE RECORDS SUMMARY | 2025-03-27 11:46 | XMS_ITS | Patient Health Record ---
Author Organization [facility] Address [address] [place] [id number] Care Team Providers Care [place] Cutter Name Role Phone GIOVANI HAGEN MD Primary Care Provider Oren Pulliam Unavailable [phone] Allergies Allergen (clinical drug ingredient) Drug/Non Drug [...] smoker Section Notes: . Works for the [employer] Problems Problem Type SNOMED Code ICD Code Onset Dates Problem Status W/U Status Risk Notes Problem Gastroparesis (968626822) Gastroparesis ( K31.84) ActiveconfirmedProblemElevated transaminase level (R74.01)Activeconfirmed Plan Of Treatment Pending Test Test Name Order Date Gastric Emptying Scan 05/01/2023 lipase* 05/01/2023 LFT's 05/01/2023 LFT's 04/01/2023 Insurance Providers Payer Name Payer Address Payer Phone Subscriber Number Group Number Insured Name Patient Relationship to Insured Coverage Start Date Coverage End Date [employer] [address] [place] [phone] [id number] Belgica Barnett Self - patient is the insured Medical (General) History Medical History History ICD Code anxiety depressionADHDasthmadiverticulitishelicobacter pylori infectionulcer pancreatitis, acute, gallstonebipolar disorderadhesionsobesitySurgical History Surgery Date(Month/Year) EGD colonoscopycholecystectomycesarean sectionlaparoscopy
--- OUTSIDE RECORDS SUMMARY | 2025-03-27 11:47 | XMS_ITS | Clinical Summary ---
Author Organization [facility] Address [address] [place] [address] Care Team Providers Care Railroad Auditor Name Role Phone Emerald Sanchez MD Unavailable Emerald Sanchez MD Primary Care Provider [phone] Allergies Active AllergyReactionsCriticalityNoted DateCommentsCat DanderAnaphylaxisHigh 11/30/2022Iodinated Contrast GtqluVjlnc71/09/2023IodineItching,SwellingHigh 04/11/2019 Omnipaque 300: Patient experienced itching on [...] capsule by mouth Daily 100 capsule 5Active Hixpscsnjzr-Ggyqccsve-Wdhngx (Trelegy Ellipta) 100-62.5-25 MCG/ACT aerosol powder Indications:Moderate persistent asthmatic bronchitis with acute exacerbation (HCC)INHALE 1 PUFF DAILY 60 each 5Active buPROPion XL (Wellbutrin XL) 150 MG 24 hr tablet Take 150 mg by mouth in the morning.5Active albuterol HFA 90 mcg/act inhaler Indications:Mild intermittent asthma without complication (HCC)Inhale 2 puffs every 6 (six) hours if needed for wheezing 18 g 5Active citalopram (CeleXA) 10 MG tablet 1 (one) time each day at the same timeActive propranolol (Inderal) 10 MG tablet every 12 (twelve) hours5Active escitalopram (Lexapro) 20 MG tablet Take 20 [...] tablet (300 mg) before bedtime. 60 tablet 509/ctive Additional Information Patient taking differently:300 mg OralDaily, (No times of day reported), Reported on 03/27/2025 celecoxib (CeleBREX) 100 MG capsule Indications:Lumbar radiculopathyTake 1 capsule (100 mg) by mouth in the morning and 1 capsule (100 mg) before bedtime. 180 capsule /[id number]/6Active metoprolol succinate XL (Toprol-XL) 25 MG 24 hr tablet Indications:HypercholesterolemiaTake 1 tablet (25 mg) by mouth Daily 100 tablet 5Active doxepin (SINEquan) 100 MG capsule Indications:Major depressive disorder, recurrent, moderate (HCC)Take 2 capsules (200 mg) by mouth at bedtime 60 capsule 5Active amphetamine-dextroamphetamine XR (Adderall XR) 30 MG 24 hr capsule Indications:Attention deficit hyperactivity disorder (ADHD), predominantly inattentive typeTake 1 capsule (30 mg) by mouth Daily Do not crush or chew. Take with the 10mg daily 30 capsule /5Active amphetamine-dextroamphetamine XR (Adderall XR) 10 MG 24 hr capsule Indications:Attention deficit hyperactivity disorder (ADHD), predominantly inattentive type,Bipolar disorder, in partial remission, most recent episode manic (HCC),Agoraphobia with panic attacksTake 1 capsule (10 mg) by mouth in the morning. Do not crush or chew. Take with the 30mg tablet. 30 capsule 5Active metoprolol succinate XL (Toprol-XL) 25 MG 24 hr tablet Indications:HypercholesterolemiaTake 1 tablet (25 mg) by mouth Daily 100 tablet 305/Discontinued(Reorder) OXcarbazepine (Trileptal) 300 MG tablet Indications:Numbness and tingling,Atypical migraineTake 0.5 tablets (150 mg) by mouth at bedtime for 7 days, THEN 1 tablet (300 mg) at bedtime. 34 tablet 110Discontinued(Duplicate order) Semaglutide-Weight Management (Wegovy) 0.25 MG/0.5ML solution auto-injector Indications:Obesity (BMI 35.0-39.9 without comorbidity)Inject 0.25 mg under the skin 1 (one) time per week 2 mL /07/2024Discontinued(Other) Semaglutide-Weight Management (Wegovy) 0.25 MG/0.5ML solution auto-injector Indications:Obesity (BMI 35.0-39.9 without comorbidity)Inject 0.25 mg under the skin 1 (one) time per week 2 mL /07/2024Discontinued(Other) doxepin (SINEquan) 100 MG capsule Indications:Major depressive disorder, recurrent, moderate (HCC)Take 2 capsules (200 mg) by mouth at bedtime 60 capsule Discontinued(Reorder) amphetamine-dextroamphetamine XR (Adderall XR) 30 MG 24 [...] with the 30mg tablet. 30 capsule Discontinued(Reorder) amphetamine-dextroamphetamine XR (Adderall XR) 30 MG 24 [...] 30 capsule Discontinued(Reorder) Active Problems ProblemNoted DateDiagnosed DateDrug-induced psychotic /04/2025Left foot drop03/16/2025hest pain01/06/2025 Assessment & Plan (01/06/2025 11:35 AM EDT): Stress Echo last year from [facility] Pepcid AC twice a day Type 2 diabetes mellitus without complication, without long-term current use of zcofvlz9601/06/2025 Assessment & Plan (01/06/2025 11:42 AM EDT): Last A1c was 8.5 Atypical euzzgtzi29/07/2025Morbid (severe) obesity due to excess calories 12/16/2024 Assessment & Plan (12/16/2024 10:11 AM EDT): Weight loss Impaired fasting ebhzgyu2812/16/2024Obesity, class Assessment & Plan (12/16/2024 10:11 AM EDT): Probably related to Diabetes Generalized anxiety mnmilnpc46/21/2025Obsessive-compulsive zdjnigsp62/21/2025 Wexpkglczlzhcdqf89/21/2025Right ovarian cyst12/12/2024Lumbar radiculopathy 12/09/2024 Assessment & Plan (12/16/2024 10:02 AM EDT): Has had shots Encouraged weight lost EMG shows Left L4 moderate radiculopathy Pelvic floor hhtyemtfxca32/20/4476Wtyjn77/20/2025Extruding hetcrt1909/25/2024Fall at home09/10/2024 Assessment & Plan (09/10/2024 2:01 PM EDT): Tripped over kids onto the floor Alcohol use, unspecified with alcohol-induced psychotic disorder, unspecified 09/02/2024lcohol withdrawal hakdpkfc61/12/9244Ifviyyhhqott04/12/2025Sinus /12/2025 Assessment & Plan (09/02/2024 3:45 PM EDT): On metoprolol Recommend being off Adderall Major depressive disorder, recurrent, pivicraq92/29/2025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 Assessment & Plan (08/01/2024 2:57 PM EDT): Some improvement Agoraphobia with panic eafxifl3706/06/2024 Assessment & Plan (06/06/2024 4:08 PM EST): Could be situational Borderline zrjcyclf50/13/2025sthmatic bronchitis with acute exacerbation 04/16/2024 Assessment & Plan (04/16/2024 10:34 AM EST): I discussed with patient that while on prednisone, do not take any NSAIDs like Ibuprofen, Naprosyn,Alleve or motrin. Watch for any side effects like abdominal pain and nausea. Take the prednisone with food or milk. Prednisone may increase appetite. While on prednisone, watch for any sugar elevations. Ibbwzbd1504/16/2024ain and swelling of left ksjentgk26/11/2024ody mass index (BMI) 36.0-36.9, adult02/06/2024 Assessment & Plan (12/16/2024 10:12 AM EDT): Can't exercise due to chip Assessment & Plan (02/06/2024 9:24 AM EDT): Needs life style modification. Exercise Routinely Low Calorie Diet F/U in 4 weeks 3500 calorie deficit = 1lb weight loss Small portions TIming of meals Reduce Carbohydrate Intake High Protein Diet Localized edema02/06/2024ervical mwqtxpwfmqgel17/03/2024 Assessment & Plan (12/26/2023 3:20 PM EDT): [...] Plan (12/16/2024 10:03 AM EDT): Has seen Settlement Worker in the past. 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 Machine Operator x 2 Has seen a specialist for Diverticulosis and also has Gastroparesis Lipase was still elevated from 04/11/2023 History of gvcmxhvfctoqrog75/26/2023 Assessment & Plan (04/18/2023 2:58 PM EST): Still with loose stools Avoid fatty meals Cough04/18/2023 Assessment & Plan (04/18/2023 3:01 PM EST): Had cat exposure has Strep Could be post nasal drainage Anaphylactic gjvciypx13/26/2023alculus of gallbladder without cholecystitis without wtrdwieybsq19/30/2023cute biliary pancreatitis without infection or necrosis ([facility])03/21/2023History of COVID-1918714Vqcaqfrbsi51/16/2023 Hfezobmba74/22/2023cute nonintractable ataelyod76/22/2023 Assessment & Plan (12/26/2023 3:14 PM EDT): Could be migraine CT scan of head last December 2022 was normal. Discussed with patient that if WRST headache of her life she needs to go to ER for possible subarachnoid hemorrhage Recurrent UTI12/12/20222915Msuvxnrsfhkhi94/12/2023Tremors of nervous system 09/23/2022 Assessment & Plan (04/01/2024 8:59 AM EST): Avoid Stimulants: Caffeine, otc Decongestants Try Klonopin instead of Xanax We can't do Beta Blockers because of asthma If NB consider Neurology CT scan from 12/2022 was normal Kppnowj1209/23/2022 Assessment & Plan (09/02/2024 3:39 PM EDT): [...] will be seeing [facility] and they will start to manage the psychiatric medicines Assessment & Plan (06/06/2024 4:07 PM EST): Coping skills with counselor Diverticular disease of colon09/23/20226561Ivnzyfniv69/02/2023Elevated liver enzymes 09/23/2022Exercise induced /02/2023Finding of above normal blood sabkhwxm66/02/2023History of /02/5054Strkbpmvmacwo61/02/2023 Wifyvpkgjfckxc45/02/2599Mtvuilpa57/02/2023Irritable bowel syndrome with zfymezplehow66/02/2023Mild intermittent asthma without dpaiftubzfny46/02/2023 Assessment & Plan (04/01/2024 9:00 AM EST): Add Singulair Mood oawkgk7309/23/2022 Assessment & Plan (09/02/2024 3:39 PM EDT): Ultimately will see someone who does medicines. Bilateral aoocoewcarbliut65/02/2023Nonalcoholic steatohepatitis (ENGLISH)09/23/2022 Assessment & Plan (12/16/2024 10:09 AM EDT): F/Up with GI Numbers are improved since stopping alcohol Other specified abnormal findings of blood oiepsmyjv86/02/2023oor concentration 09/23/2022Sacroiliitis, not elsewhere fjffshvcky91/02/2023Skin pain09/23/2022 Thyroid evhnaccnyhf91/02/0208Kmwqkvrwlqaaqubqbxhh43/10/2022therosclerosis of coronary artery without angina jsmgjkpe70/25/2022therosclerosis of both carotid trjsuzig38/26/2021therosclerosis of aorta06/16/2020Generalized idiopathic epilepsy and epileptic syndromes, not intractable, without status epilepticus 11/22/2019Gastroesophageal reflux disease without fuhszgwkhgr86/17/2020 Osteoarthritis of knee06/14/2019Vitamin D ulibhxazxm75/23/2020 Assessment & Plan (12/04/2023 3:16 PM EDT): [...] Canceled surgery due to hear issues, but rotary cutter feeder cleared and already has had 2 surgeries last year with no complication Injury of right ankleEncounter for postoperative care /0238Zgcpsip72Urinary neurulrlc53/21/2023 02/06/2023UTI (urinary tract infection)Severe acute respiratory syndrome coronavirus 2 (SARS-CoV-2) bevvtvin01 Abnormal tolzilykgy45iverticulitis Diverticulitis of large intestine without perforation or abscess without rxwhgylv90Maxillary ijkuehmxl16Sinusitis Obesity (BMI 30.0-34.9)Sciatica SmokerTension vkelbqzz06/02/2023 02/06/2023 Encounters DateTypeDepartmentCare XqyzEosqshtwkbh36/04/2025 11:00 AM ESTOffice Visit [facility] [address] [facility] [address] [place] [phone] Sandy Hammond PA Facial twitching (Primary Dx); Tremulousness; Other speech disturbance; Zldftvezhhp98/04/2025amboo flowsheet [facility] [address] [facility] [address] [place] [phone] Sandy Hammond PA 03/27/20256249Xpbwqa77/29/2025[facility] [address] [facility] [address] [place] [phone] Sandy Hammond PA Attention deficit hyperactivity disorder (ADHD), predominantly inattentive type; Bipolar disorder, in partial remission, most recent episode manic (HCC); Agoraphobia with panic ysxldhz7003/22/2025[facility] [address] [facility] [address] [place] [phone] Emerald Sanchez MD Hypercholesterolemia; Major depressive disorder, recurrent, moderate (HCC)03/18/20255210Vhsbcv52/21/2025 11:40 AM ESTOffice Visit [facility] [address] [place] [address] [place] [phone] Jatin Cabrera MD Left foot drop (Primary Dx); Acute non intractable tension-type enbqwaab23/21/2601Lbzgdq55/21/2025Orders Only [facility] [address] [place] [address] Kendal Encarnacion MA 03/13/20253225Ulqbvj55/12/2025Telephone [facility] [address] [facility] [address] [place] [address] Emerald Sanchez MD Infcnubu48/10/2025 4:30 PM ESTClinical Support [facility] [address] [place] [phone] Milton Duvall, DPM FACFAS Other synovitis and tenosynovitis, right ankle and foot (Primary Dx); Foot drop, left03/03/2025Telephone [facility] [address] [facility] [place] [address] Milton Duvall, DPM FACFAS 03/03/2025amboo flowsheet [facility] [address] [place] [phone] Milton Duvall, DPM FACFAS 03/03/20257953Kwutus84/06/2025 3:00 PM ESTProcedure Visit [facility] [address] [place] [address] Ayleen Krishnamurthy PA Well woman exam with routine gynecological exam; H/O: hysterectomy; Abnormal urine odor; BV (bacterial vaginosis)02/27/2025linisync Result Encounter [facility] External Department Unsolicited Ayleen Krishnamurthy PA 02/27/2025[facility] [address] [place] [address] [place] [address] Sandy Hammond PA Attention deficit hyperactivity disorder (ADHD), predominantly inattentive type; Bipolar disorder, in partial remission, most recent episode manic (HCC); Agoraphobia with panic pfooodz8102/20/2025bstract [facility] [address] [facility] [place] [address] Milton Duvall, DPM FACFAS 02/13/2025Telephone [facility] [address] [place] [address] [place] [phone] Jatin Cabrera MD 02/12/2025 4:40 PM EDTOffice Visit [facility] [address] [facility] [place] [address] Milton Duvall, DPM FACFAS Foot drop, left (Primary Dx); Other synovitis and tenosynovitis, right ankle and foot; Sprain of anterior talofibular ligament of right ankle, subsequent encounter; Other enthesopathy of right foot and ankle02/12/2025Telephone [facility] [address] [facility] [place] [address] Milton Duvall, DPM FACFAS AFO - NEEDS RHUMOCT1302/12/2025amboo flowsheet [facility] [address] [place] [address] Milton Duvall, DPM FACFAS 02/06/2025linisync Result Encounter [facility] External Department Unsolicited Provider, Generic External Data 01/22/2025[facility]ill [facility] [address] [facility] [address] [place] [address] Sandy Hammond PA Attention deficit hyperactivity disorder (ADHD), predominantly inattentive type; Bipolar disorder, in partial remission, most recent episode manic (HCC); Agoraphobia with panic lrbpfps6401/18/2025[facility] [address] [place] [address] [place] [address] Emerald Sanchez MD Major depressive disorder, recurrent, moderate (HCC)01/16/2025bstract [facility] [address] [facility] [address] [place] [address] Emerald Sanchez MD 01/15/2025 4:00 PM EDTClinical Support [facility] [address] [place] [address] Milton Duvall, DPM FACFAS Other synovitis and tenosynovitis, right ankle and foot (Primary Dx); Other enthesopathy of right foot and ankle01/15/2025 3:00 PM EDTClinical Support [facility] [address] [facility] [address] [place] [address] Sandy Hammond, PA Type 2 diabetes mellitus without complication, without long-term current use of insulin ([facility])01/15/20255245Xfzrkz56/23/2025 6:00 PM EDTAncillary Procedure [facility] [address] [place] [phone] Lumbar biseaaeqlxlyg15/23/0673Sygmwt34/23/2025bstract [facility] [address] [facility] [address] [place] [address] Emerald Sanchez MD 01/13/2025Telephone [facility] [address] [facility] [address] [place] [address] Emerald Sanchez MD 01/13/2025Results Follow-Up [facility] [address] [facility] [address] [place] [address] Emerald Sanchez MD ALL CBC WITH AUTO DIFF, ALL LIPID PROFILE (FASTING)01/10/2025bstract [facility] [address] [facility] [address] [place] [address] Samuel Greenfield, DO 01/10/2025Telephone [facility] [address] [place] [address] [place] [address] Ashley Ma MA 01/09/2025Telephone [facility] [address] [facility] [address] [place] [phone] Emerald Sanchez MD 01/09/20256845Kreooq00/18/2025Clinisync Result Encounter [facility] External Department Unsolicited Emerald Sanchez MD 01/08/2025Refill [facility] [address] [facility] [address] [place] [address] Emerald Sanchez MD Obesity (BMI 35.0-39.9 without comorbidity)01/07/2025Refill [facility] [address] [facility] [address] [place] [address] Emerald Sanchez MD Obesity (BMI 35.0-39.9 without comorbidity)01/07/2025Telephone [facility] [address] [facility] [address] [place] [address] Emerald Sanchez MD 01/06/2025 10:30 AM EDTOffice Visit [facility] [address] [facility] [address] [place] [phone] Emerald Sanchez MD Well adult health check (Primary Dx); Chest pain, unspecified type; Elevated liver enzymes; Type 2 diabetes mellitus without complication, without long-term current use of insulin (HCC)01/06/2025bstract [facility] [address] [facility] [address] [place] [address] Emerald Sanchez MD 01/06/2025amboo flowsheet [facility] [address] [place] [address] [place] [address] Emerald Sanchez MD 01/06/20250192Lmunpq63/08/2025 1:20 PM EDTClinical Support [facility] [address] [place] [address] Milton Duvall, DPM FACFAS Other synovitis and tenosynovitis, right ankle and foot (Primary Dx); Right foot pain; Other enthesopathy of right foot and ankle12/30/2024amboo flowsheet [facility] [address] [place] [address] Milton Duvall, DPM FACFAS 12/29/20240716Dnbuhi60/04/2025 1:20 PM EDTOffice Visit [facility] [address] [place] [address] [place] [address] Jatin Cabrera MD Lumbar radiculopathy (Primary Dx); Numbness and tingling; Atypical hclnjaca53/04/2025Travelfrom Last 3 Months Immunizations ImmunizationAdministration DatesNext QchUDW2112/28/1993,12/07/1992,06/09/1992, 06/20/1990HPV, Fnnitlljcara00/12/2007Hep B, Adolescent or Kufldkhua75/14/2007, 11/02/2006,02/20/1998Influenza, Zzwzdfljwkz65/19/2021,03/16/2020,01/08/2018 Influenza, injectable, MDCK, preservative free, uausavdtmhgh44/23/2020, 02/01/2017Influenza, injectable, mqqzusgcufvz88/17/2018Influenza, injectable, quadrivalent, preservative free02/09/2021,01/08/2018,03/25/2016MMR12/07/1992, 06/09/1992Meningococcal ACWY, auuhpqaixws21/12/2007Meningococcal SSC6E2611/02/2006 OPV12/07/1992,06/09/1992,05/21/1990,01/10/1989Tdap09/06/2024,02/05/2010Varicella 10/31/1990 Family History Medical HistoryRelationNameCommentsAccidental deathBrotherErnie GarciaNo Known ProblemsDaughter 1No Known ProblemsDaughter 2No Known [...] relatives?Once a week05/09/2024How often do you attend advent or methodist services?Never05/09/2024Do you belong to any clubs or organizations such as advent groups, unions, fraternal or athletic groups, or school groups?Yes05/09/2024How often do you attend meetings of the clubs or organizations you belong to?Never05/09/2024re you , , , , never , or living with a partner?Ogxyfby6305/09/2024UDIT-C AnswerDate RecordedQ1: How often do you have a drink containing alcohol?2-4 times a month05/09/2024Q2: How many drinks containing alcohol do you have on a typical day when you are drinking?1 or Q3: How often do you have six or more drinks on one occasion?Less than vlcnqyt5205/09/2024Overall Financial Resource Strain (CARDIA)AnswerDate RecordedHow hard is it for you to pay for the very basics like food, housing, medical care, and heating?Not hard at all 05/09/2024PHQ-2AnswerDate RecordedPatient Health Questionnaire-2 Score0 03/27/2025Fin[facility] of Occupational Health - Occupational Stress QuestionnaireAnswerDate [...] were you homeless or living in a assisted (including now)?No 05/09/2024CommentsNoSex and Gender InformationValueDate RecordedSex Assigned at BirthNot on fileLegal CgbWpmaaq17/15/2023 7:29 PM EDTGender Identity Not on fileSexual OrientationNot on file Last Filed Vital Signs Vital SignReadingTime TakenCommentsBlood Jsndvorf891/8603/27/2025 11:01 AM EST Mynvp98581/04/2025 11:01 AM KQLMemxzdvojoe39.5 ??C (97.7 ??F)04/18/2024 4:42 PM ESTRespiratory Ifex952305/28/2024 11:01 AM ESTOxygen Pgjdclbhui65%03/27/2025 11:01 AM ESTInhaled Oxygen Concentration--Mbkpod28.3 kg (219 lb)03/27/2025 11:01 AM SRJPwpmqf888.5 cm (5' 2 )03/27/2025 11:01 AM ESTBody Mass Index40.0603/27/2025 11:01 AM EST Plan of Treatment DateTypeDepartmentCare Team (Latest Contact Info)Ksfdrzbfzuc75/08/2025 4:50 PM ESTOffice Visit [facility] [address] [place] [phone] Milton Duvall, DPM FACFAS [address] [place] [address] 04/08/2025 3:00 PM ESTOffice Visit [facility] [address] [facility] [address] [place] [address] Emerald Sanchez MD [address] [facility] [address] [place], [place] [phone] 06/05/2025 3:00 PM ESTOffice Visit [facility] [address] [facility] [address] [place] [address] Jatin Cabrera MD [address] [facility] [address] [address] Health MaintenanceDue DateLast DoneCommentsDiabetes: Retinopathy Screening 1998Pneumococcal Vaccine: Pediatrics (0 to 5 Years) and At-Risk Patients (6 to 64 Years) (1 of 2 - PCV)09/29/2007Diabetes: Urine Protein Screening /, 3COVID-19 Vaccine (2024- season)2024 11/02/2021, 04/29/2021, 1Diabetes: Hemoglobin A1C509/, 04/03/2024, 10/03/2023, Additional history existsInfluenza Vaccine (#1) 61, 02/09/2021, 03/16/2020, Additional history existsPostponed from 12/23/2024 (Patient Refused)Cervical Cancer ScreeningDiscontinuedPap Smear Sbecskdlcfng12/27/2024, 04/20/2022, 04/15/2021HPV/CotestDiscontinued Goals GoalPatient Goal TypeAssociated ProblemsRecent ProgressPatient-Stated?Author Help patient manage antidepressant medication Care PlanPatient on antidepressant monitoring Emerald Rain MD Baseline PHQ-9 Care PlanBaseline PHQ-9Emerald Underwood MD Procedures Procedure NamePriorityDate/TimeAssociated DiagnosisCommentsRECURRENT VAGINITIS (HTRX)Jurseeo1402/27/2025 3:30 PM EST POCT URINALYSIS LGKYIHCGFnzrfpi53/06/2025 3:22 PM EST Abnormal urine odor IGP,APTIMA HPV,AGE QQVQIbacvit47/06/2025 3:05 PM EST HPV/PAP COTEST, RSTPMWGTKhsixuz72/06/2025 12:00 AM ESTMLR HEMOGLOBIN N2ACkzhrlt 02/06/2025 10:45 AM EDT ALL LIPID PROFILE (FASTING)Sbzobgw9002/06/2025 10:45 AM EDT [facility] CMP (CMP) (FOR REMOTE [facility] USE)Lbklcxh5302/06/2025 10:45 AM EDT POCT GLYCOSYLATED HEMOGLOBIN (HGB A1C)Zacqgci1501/15/2025 3:30 PM EDT Type 2 diabetes mellitus without complication, without long-term current use of insulin (HCC) MR LUMBAR SPINE WO QSMODXSNJtgvxlr58/23/2025 7:12 PM EDT Lumbar radiculopathy ACUTE HVNTVRXXVBawlout98/18/2025 12:25 PM EDT ALL LIPID PROFILE (FASTING)Rsquxmn3701/09/2025 12:25 PM EDT ALL CBC WITH AUTO VVQSMxlzbyl28/18/2025 12:25 PM EDT PAP DAMOOEenjnfv17/27/2024 12:00 AM ESTMICROALBUMIN / CREATININE URINE RATIO Latmuko8006/02/2022 from Last 3 Months or Most Recently Relevant to Health Maintenance Results * RECURRENT VAGINITIS (HTRX) (02/27/2025 3:30 PM EST)ComponentValueRef RangeTest MethodAnalysis TimePerformed AtPathologist SignatureATOPOBIUM MTGHHGW489.961 - 24.689 ppm02/28/2025 7:09 AM ESTHealthTrackRx at LabPortATOPOBIUM VAGINAENot Eedepfzw38.961 - 24.689 ppm02/28/2025 7:09 AM ESTHealthTrackRx at LabPortBVAB 2,3 (BACTERIAL VAGINOSIS ASSOCIATED BACTERIA 2, 3); MOBILUNCUS ALE795.961 - 24.689 ppm02/28/2025 7:09 AM ESTHealthTrackRx at LabPortBVAB 2,3 (BACTERIAL VAGINOSIS ASSOCIATED BACTERIA 2, 3); MOBILUNCUS SPPNot Qdkljtes21.961 - 24.689 ppm02/28/2025 7:09 AM ESTHealthTrackRx at LabPortCANDIDA ALBICANS, PARAPSILOSIS, ZYOHAWXEXP002.000 - 30.347 ppm02/28/2025 7:09 AM EST [facility] at LabPortCANDIDA ALBICANS, PARAPSILOSIS, TROPICALISNot Detected 23.000 - 30.347 ppm02/28/2025 7:09 AM ESTHealthTrackRx at LabPortCANDIDA MQEHMNYI382.000 - 31.618 ppm02/28/2025 7:09 AM ESTHealthTrackRx at LabPort SHARIF GLABRATANot Naszbpfq60.000 - 31.618 ppm02/28/2025 7:09 AM EST HealthTrackRx at LabPortCANDIDA NLYDTT222.000 - 30.873 ppm02/28/2025 7:09 AM ESTHealthTrackRx at LabPortCANDIDA KRUSEINot Tnfhmlrp13.000 - 30.873 ppm 02/28/2025 7:09 AM ESTHealthTrackRx at LabPortCHLAMYDIA YRXXSRYJUNJ294.000 - 31.586 ppm02/28/2025 7:09 AM ESTHealthTrackRx at LabPortCHLAMYDIA TRACHOMATIS Not Qxkielcy89.000 - 31.586 ppm02/28/2025 7:09 AM ESTHealthTrackRx at LabPort GARDNERELLA IRGTPKQNP731.961 - 24.689 ppm02/28/2025 7:09 AM ESTHealthTrackRx at LabPortGARDNERELLA VAGINALISNot Aowkpruu95.961 - 24.689 ppm02/28/2025 7:09 AM ESTHealthTrackRx at LabPortMEGASPHAERA (TYPES 1, 2)019.961 - 24.689 ppm 02/28/2025 7:09 AM ESTHealth[facility]Rx at [facility] (TYPES 1, 2)Not Ccfnettw21.961 - 24.689 ppm02/28/2025 7:09 AM ESTHealth[facility] NEISSERIA UIHVUSVRXRQ774.000 - 32.587 ppm02/28/2025 7:09 AM ESTHealthTrackRx at [facility] HealthNEISSERIA GONORRHOEAENot Mhdqbwkk88.000 - 32.587 ppm02/28/2025 7:09 AM ESTHealthTrackRx at LabSt[facility] HospitalTRICHOMONAS IRQNWMIKA667.000 - 31.995 ppm 02/28/2025 7:09 AM ESTHealthTrackRx at [facility] HealthTRICHOMONAS VAGINALISNot Nyizfooe38.000 - 31.995 ppm02/28/2025 7:09 AM ESTHealth[facility]Rx at [facility] MYCOPLASMA YGAVSDWKIB776.961 - 24.689 ppm02/28/2025 7:09 AM ESTHealthTrackRx at [facility] HealthMYCOPLASMA GENITALIUMNot Xvekolne95.961 - 24.689 ppm02/28/2025 7:09 AM ESTHealthTrackRx at LabPortSpecimen (Source)Anatomical Location / LateralityCollection Method / VolumeCollection TimeReceived TimeTissue 02/27/2025 3:30 PM EST02/28/2025 1:59 AM EST Narrative Authorizing ProviderResult TypeResult StatusAmy [facility] BLOOD ORDERABLES Final ResultPerforming OrganizationAddressCity/State/ZIP CodePhone Number [facility] [address] [place] [address] * (ABNORMAL) POCT urinalysis dipstick manually resulted [...] 3:22 PM EST Narrative Authorizing ProviderResult TypeResult Status[facility] TEST ENTER/EDIT ORDERABLESFinal Result * IGP,APTIMA HPV,AGE GDLN (02/27/2025 3:05 PM EST)ComponentValueRef RangeTest MethodAnalysis TimePerformed AtPathologist SignatureAGE GDLN ACOG TESTINGNote. TBHComment: ?? TESTS ? RESULT ??FLAG ??UNITS ?REF RANGE ??LAB ?? Clinician Provided Cytology Information ?? Source.............Vagina ?? No. of containers..01 ThinPrep Vial Age Algo ACOG Starla... ??30-65 ? 01 ?FLAG LEGEND: ?L-Low Normal,H-High Normal,LL-Alert Low,HH-Alert High <-Panic Low,>-Panic High,A-Abnormal,AA-Critical Abnormal Performed at: 01 =G ?[facility] ?? [address] [place] ??[phone] ?? Zoraida Hawkins MD, IGP, APTIMA HPV, RFX 16/18,45Note.TBHComment: ?? TESTS ? RESULT ??FLAG ??UNITS ?REF RANGE ??LAB DIAGNOSIS: ?02 ?? NEGATIVE FOR INTRAEPITHELIAL LESION OR MALIGNANCY. ?? THIS SPECIMEN WAS RESCREENED PART OF OUR HEALTHCARE RECRUITER PROGRAM. Specimen adequacy: ?02 ?? Satisfactory for evaluation. Performed by: ? 02 ?? Milagro Hallman Coating Line Worker ([facility]) QC reviewed by: ? 02 ?? Pj Barone Coating Line Worker ([facility]) . ? 02 Note: ? Note ?02 ?? The Pap smear is a screening test designed to aid in the ?? detection of premalignant and malignant conditions of the ?? uterine cervix. ??It is not a diagnostic procedure and ?? should not be used as the sole means of detecting cervical ?? cancer. ??Both false-positive and false-negative reports do ?? occur. Test Methodology: ? Note ?02 ?? This liquid based ThinPrep(R) pap test was interpreted ?? using the [employer]R) RPost(TM) Cervical Algorithm whole ?? slide imaging system. HPV Genotype Reflex ?? Note ?02 ?? Criteria not met, HPV Genotype not performed. ?FLAG LEGEND: ?L-Low Normal,H-High Normal,LL-Alert Low,HH-Alert High <-Panic Low,>-Panic High,A-Abnormal,AA-Critical Abnormal Performed at: 02 WB ?[facility] ?? [address] [place] ??[phone] ?? Zoraida Hawkins MD, HPV APTIMANegativeNegativeTBHComment: This nucleic acid amplification test detects fourteen high- risk HPV types (16,18,31,33,35,39,45,51,52,56,58,59,66,68) without differentiation. Performed at: ??=G - [facility] [address] ??[id number] American Indian Policy Specialist: Zoraida Hawkins MD, Phone: ??[phone] Performed at: ??WB - [facility] [address] ??[id number] American Indian Policy Specialist: Zoraida Hawkins MD, Phone: ??[phone] Specimen (Source)Anatomical Location / LateralityCollection Method / Volume Collection TimeReceived Time02/27/2025 3:05 PM EST02/27/2025 7:13 PM EST Narrative CLINISYNC - 03/05/2025 3:11 PM EST SPATULA-ALONE TOTAL HYSTERECTOMY VAGINA Authorizing ProviderResult TypeResult StatusAmy Paxton PALAB BLOOD ORDERABLES Final ResultPerforming OrganizationAddressCity/State/ZIP CodePhone Number CLINISYNC TBH * HPV/PAP COTEST, EXTERNAL (02/27/2025 12:00 AM EST) Narrative Authorizing ProviderResult TypeResult StatusAmy Yessy PALAB CYTOLOGY ORDERABLES Final ResultPerforming OrganizationAddressCity/State/ZIP CodePhone Number EXTERNAL LAB * MLR HEMOGLOBIN A1C (02/06/2025 10:45 AM EDT)ComponentValueRef RangeTest Method Analysis TimePerformed AtPathologist SignatureGLYCOHEMOGLOBIN A1C6.14.5 - 6.2 %TBHComment: ADA RECOMMENDED LIMIT 4.0 - 6.0 ADA THERAPEUTIC TARGET < 7.0 ACTION SUGGESTED > 7.0 ESTIMATED AVERAGE HROOEXN068lr/dLTBHSpecimen (Source)Anatomical Location / LateralityCollection Method / VolumeCollection TimeReceived Time02/06/2025 10:45 AM EDT1 10:53 AM EDT Narrative CLINISYNC - 02/06/2025 12:29 PM EDT Authorizing ProviderResult TypeResult StatusGeneric External Data Provider CLINISYNCFinal ResultPerforming OrganizationAddressCity/State/ZIP CodePhone Number MERLENE TB * (ABNORMAL) CCF CMP (CMP) (FOR REMOTE [facility] USE) (02/06/2025 10:45 AM EDT) ComponentValueRef RangeTest MethodAnalysis TimePerformed AtPathologist FbnvlbeclTTGTZP605178 - 145 mmol/LTBHPOTASSIUM4.43.5 - 5.1 mmol/LTBHCHLORIDE 53446 - 107 mmol/LTBHCARBON EICMHZZ48.921.0 - 32.0 mmol/LTBHANION GAP13.5TBH YBVBMDY814(H)74 - 106 mg/dLTBHBLOOD UREA ZOVCTXXF04.07.0 - 18.0 mg/dLTBH CREATININE0.890.55 - 1.02 mg/dLTBHTBH EGFR-AF UGANDAN>60>=60 mL/min/1.73m 2 TBHTBH EGFR-NON AF UGANDAN>60>=60 mL/min/1.73m 2TBHBUN CREATININE RATIO18.0 TBHCALCIUM9.28.5 - 10.1 mg/dLTBHBILIRUBIN TOTAL0.30.2 - 1.0 mg/dLTBHASPARTATE AMINO PJBNCFCXSZB4148 - 37 U/LTBHALANINE PWIMDXCVINSHYUXN15(H)14 - 59 U/LTBH ALKALINE OVIXXEZHPWE35657 - 116 U/LTBHTOTAL PROTEIN7.46.4 - 8.2 g/dLTBHALBUMIN LEVEL3.73.4 - 5.0 g/dLTBHGLOBULIN3.7g/dLTBHALBUMIN GLOBULIN RATIO1.0TBH Specimen (Source)Anatomical Location / LateralityCollection Method / Volume Collection TimeReceived Time02/06/2025 10:45 AM EDT1 10:53 AM EDT Narrative CLINISYNC - 02/06/2025 12:12 PM EDT Authorizing ProviderResult TypeResult StatusGeneric External Data Provider CLINISYNCFinal ResultPerforming OrganizationAddressCity/State/ZIP CodePhone Number MERLENE TB * (ABNORMAL) ALL LIPID PROFILE (FASTING) (02/06/2025 10:45 AM EDT) Only the most recent of2 resultswithin the time period is included. ComponentValueRef RangeTest MethodAnalysis TimePerformed AtPathologist Signature QRKIIOBVMIYPM274<=150 mg/cNRWQIQNDUJRJESD443(H)<=200 mg/dLTBHHDL EMNCHWCXTWY46 (H)40 - 60 mg/dLTBHComment: > or =60 mg/dl - LOW CARDIOVASCULAR RISK <40 mg/dl - HIGH CARDIOVASCULAR RISK LDL CHOLESTEROL FCCWNYJPJY175.0mg/dLTBHComment: <100 mg/dl OPTIMAL 100-129 mg/dl NEAR OR ABOVE OPTIMAL 130-159 mg/dl BORDERLINE HIGH 160-189 mg/dl HIGH >190 mg/dl VERY HIGH VLDL PFWKTZVYDVE28.6mg/dLTBHCHOL HDL RATIO2.8TBHComment: 3.3 - 4.4 ?? LOW RISK 4.4 - 7.1 ?? AVERAGE RISK 7.1 - 11.0 ??MODERATE RISK >11.0 HIGH RISK Specimen (Source)Anatomical Location / LateralityCollection Method / Volume Collection TimeReceived Time02/06/2025 10:45 AM EDT1 10:53 AM EDT Narrative CLINISYNC - 02/06/2025 12:12 PM EDT Authorizing ProviderResult TypeResult StatusGeneric External Data Provider CLINISYNCFinal ResultPerforming OrganizationAddressCity/State/ZIP CodePhone Number CLINISYNC TB * (ABNORMAL) POCT glycosylated hemoglobin (Hb A1C) docked device (01/15/2025 3:30 PM EDT)ComponentValueRef RangeTest MethodAnalysis TimePerformed At Pathologist SignatureHemoglobin A1C5.4Specimen (Source)Anatomical Location / LateralityCollection Method / VolumeCollection TimeReceived TimeBloodVenous blood specimen / Doonmsd4601/15/2025 3:30 PM EDT Narrative Authorizing ProviderResult TypeResult StatusSandy Hammond PAPOINT OF CARE TEST ENTER/EDIT ORDERABLESFinal Result * MR lumbar spine wo contrast (01/14/2025 7:12 PM EDT)Anatomical Region LateralityModalitySpine, L-spineMagnetic ResonanceSpecimen (Source)Anatomical Location / LateralityCollection Method / VolumeCollection TimeReceived Time 01/15/2025 9:15 AM EDT Impressions 01/15/2025 9:17 AM EDT No significant disc bulge. No high-grade neural foraminal or spinal canal stenosis. ELECTRONICALLY SIGNED BY: DO Lan Mi 01/15/2025 9:17 AM EDT EXAM: MR LUMBAR [...] BY: Fuad Stern DO Authorizing ProviderResult TypeResult StatusBrendan W Cabrera MDIMG MRI PROCEDURES Final Result * ACUTE HEPATITIS [...] HCV infection. Performed at: ??CB - [facility] [address] ??[id number] American Indian Policy Specialist: Demarcus Moreno PhD, Phone: ??[phone] Specimen (Source)Anatomical Location / LateralityCollection Method / Volume Collection TimeReceived Time01/09/2025 12:25 PM EDT01/09/2025 12:28 PM EDT Narrative CLINISYNC - 01/10/2025 5:07 AM EDT Authorizing ProviderResult TypeResult StatusGeneric External Data ProviderLAB BLOOD ORDERABLESFinal ResultPerforming OrganizationAddressCity/State/ZIP Code Phone Number [facility]E [facility] * (ABNORMAL) ALL CBC WITH AUTO DIFF (01/09/2025 12:25 PM EDT)ComponentValueRef RangeTest MethodAnalysis TimePerformed AtPathologist SignatureTBH WBC10.34.0 - 11.0 10 3/uLTBHTBH RBC4.11(L)4.20 - 5.40 10 6/uLTBHTBH HGB13.312.0 - 16.0 g/dL TBHTBH HCT39.236.0 - 48.0 %TBHTBH MCV95.481.0 - 99.0 fLTBHTBH MCH32.426.7 - 34.0 pgTBHTBH MCHC33.929.9 - 35.2 g/dLTBHTBH RDW12.711.0 - 15.0 %TBHTBH KGO656 150 - 450 10 3/uLTBHTBH MPV9.99.5 - 13.5 fLTBHNEUTROPHILS PERCENT AUTO64.143.0 - 75.0 %TBHLYMPHOCYTES PERCENT AUTO24.620.5 - 60.0 %TBHMONOCYTES PERCENT AUTO 5.21.7 - 12.0 %TBHTBH EO %3.00.9 - 7.0 %TBHBASOPHILS PERCENT AUTO0.50.2 - 2.0 %TBHIMMATURE GRANULOCYTES PCT AUTO2.6(H)0.0 - 0.5 %TBHNEUTROPHILS ABSOLUTE AUTO6.6(H)1.4 - 6.5 10 3/uLTBHLYMPHOCYTES ABSOLUTE AUTO2.51.2 - 3.8 10 3/uLTBH MONOCYTES ABSOLUTE AUTO0.50.3 - 0.8 10 3/uLTBHTBH EO #0.30.0 - 0.7 10 3/uLTBH BASOPHILS ABSOLUTE AUTO0.10.0 - 0.1 10 3/uLTBHIMMATURE GRANULOCYTES ABS AUTO 0.27(H)0.00 - 0.03 10 3/uLTBHSpecimen (Source)Anatomical Location / Laterality Collection Method / VolumeCollection TimeReceived Time01/09/2025 12:25 PM EDT 01/09/2025 12:28 PM EDT Narrative CLINISYNC - 01/09/2025 12:35 PM EDT Authorizing ProviderResult TypeResult StatusEmerald Maiera MDCLINISYNCFinal Result Performing OrganizationAddressCity/State/ZIP CodePhone Number * Pap Smear (03/20/2024 12:00 AM EST)Specimen (Source)Anatomical Location / LateralityCollection Method / VolumeCollection TimeReceived TimeSwabCervical swab / Unknown Narrative Authorizing ProviderResult TypeResult StatusCorey Matty DOLAB CYTOLOGY ORDERABLESFinal ResultPerforming OrganizationAddressCity/State/ZIP CodePhone Number EXTERNAL LAB * Microalbumin / creatinine urine ratio (06/02/2022)ComponentValueRef RangeTest MethodAnalysis TimePerformed AtPathologist SignatureCREATININE, RANDOM URINE 88947 - 275[facility] EXTERNAL LABALBUMIN, URINE4.8See Note:[facility] [...] Collection TimeReceived Time06/02/2022 Narrative Authorizing ProviderResult TypeResult StatusEmerald Sanchez MDLAB URINE ORDERABLES Final ResultPerforming OrganizationAddressCity/State/ZIP CodePhone Number [facility] EXTERNAL LAB from Last 3 Months or Most Recently Relevant to Health Maintenance Additional Health Concerns Active ProblemsNoted DateDiagnosed DatePatient on antidepressant monitoring plan 4Baseline PHQ-9005/08/2023 Insurance Care Teams Team MemberRelationshipSpecialtyStart DateEnd Date Emerald Sanchez MD [address] [facility] [address] [place] [address] PCP - Medical [place] [employer]10/23/1911 Emerald Sanchez MD [address] [facility] [address] [place] [address] PCP - GeneralFamily Medicine08/30/22
--- OUTSIDE RECORDS SUMMARY | 2025-03-27 11:47 | XMS_ITS | Encounter Summary ---
Author Organization Charbel Novawilliam [facility] Address [address] [facility], [address] [place] [address] Care Team Providers Care Habilitation Assistant Name Role Phone Emerald Sanchez MD Primary Care Provider [phone] Reason for Visit * ReasonOnset DateCommentsInsurance Cnortwvcxagq08/25/2025 Encounter Details DateTypeDepartmentCare Team (Latest Contact Info)Owagnmrbtcb12/25/2025Telephone [facility] [address] [facility] [address] [place], [place] [id number] Joselo Peña DO [address] [facility] [address] [place] [address] Insurance Verification Social History Tobacco UseTypesPacks/DayYears UsedDateSmoking Tobacco: FormerCigarettesQuit: 05/06/2008Smokeless Tobacco: NeverAlcohol UseStandard Drinks/WeekCommentsNot Asked0 (1 standard drink = 0.6 oz pure alcohol)1 a week. Last 03/18/23[facility] UtilitiesAnswerDate RecordedIn the past 12 months has the electric, gas, oil, or water [employer] threatened to shut off services in your [...] steady place to sleep or slept in [facility] (including now)?No 03/21/2023Housing Stability Vital SignAnswerDate RecordedIn the last 12 months, was there a time when you were not able to pay the mortgage or rent on time?No 03/21/2023Number of Times Moved in the Last YearNot on file03/21/2023Homeless in the Last YearNot on file03/21/2023Interpersonal Safety ([facility] HRSN)AnswerDate RecordedHow often does anyone, including family [...] RecordedRead-Only, Retired: Physical AbuseDenies 03/21/2023Read-Only, Retired: Verbal QrxgwZkynqd22/28/2023Read-Only, Retired: Emotional jhjdhBnhneb03/28/2023Read-Only, Retired: Financial AbuseDenies 03/21/2023Read-Only, Retired: Sexual egsimWduomu56/28/2023Comments UnknownSex and Gender InformationValueDate RecordedSex Assigned at BirthFemale 12/11/2023 12:06 PM EDTLegal BeaYkcblh68/10/2013 12:31 PM ESTGender Identity Vpxgjm5512/11/2023 12:06 PM EDTSexual IcvyqmzbpieIkfvegoa55/19/2024 12:06 PM EDT documented as of this encounter Plan of Treatment DateTypeDepartmentCare Team (Latest Contact Info)Zuwqcntdnwj18/09/2025 4:30 PM ESTAppointment [facility] [address] [place] [phone] Shivani Nunez, OPERATIONS AND MAINTENANCE SUPERVISOR 04/08/2025 5:15 PM ESTAppointment [facility] [address] [place] [phone] Benitez Nunezanda, OPERATIONS AND MAINTENANCE SUPERVISOR 04/14/2025 5:15 PM ESTAppointment [facility] [address] [place] [phone] Shivani Nunez, OPERATIONS AND MAINTENANCE SUPERVISOR 04/16/2025 10:30 AM ESTOffice Visit [facility] [address] [facility] [address] [place], [place] [id number] Joselo Peña, [address] [facility] [address] [place], [place] [id number] New Patient, Medical [place], 3 month visits, PG Fee $200, Mailed Packet 04/21/2025 5:15 PM ESTAppointment [facility] [address] [place] [id number] Shivani Nunez, OPERATIONS AND MAINTENANCE SUPERVISOR 04/28/2025 5:15 PM ESTAppointment [facility] [address] [place] [phone] Shivani Nunez, OPERATIONS AND MAINTENANCE SUPERVISOR 05/05/2025 5:15 PM ESTAppointment [facility] [address] [place] [phone] Shivani Nunez, OPERATIONS AND MAINTENANCE SUPERVISOR 05/12/2025 9:00 AM ESTAppointment [facility] [address] [place] [phone] Shivani Nunez, OPERATIONS AND MAINTENANCE SUPERVISOR 05/19/2025 5:15 PM ESTAppointment [facility] Physical [facility] [address] [place] [phone] Shivani Nunez, OPERATIONS AND MAINTENANCE SUPERVISOR documented as of this encounter Visit Diagnoses Not on filedocumented in this encounter Care Teams Team MemberRelationshipSpecialtyStart DateEnd Date Emerald Sanchez MD PCP - GeneralFamily Medicine11/02/18documented as of this encounter
--- OUTSIDE RECORDS SUMMARY | 2025-03-27 11:47 | XMS_ITS | Patient Health Record ---
Author Organization [facility] Address [address] [place] [address] Care Team Providers Care Continuous Improvement Coach Name Role Phone Ralph Radha Primary Care Provider [phone] Dagoberto Garsia Unavailable [phone] Kenya Peters Unavailable [phone] Allergies No Known Allergies Reason For Referral No Information Medications Medication SIG (Take, Route, Frequency, Duration) Notes Start Date End Date Status hydrOXYzine Pamoate 50 MG Capsule TAKE 1 CAPSULE BY MOUTH TWICE A DAY; Duration: 30 ActiveSingulair 10 MG Tablet1 tablet Orally Once a dayActiveTrelegy Ellipta 100-62.5-25 MCG/ACT Aerosol Powder Breath Activated1 puff Inhalation Once a day ActivePropranolol HCl 10 MG Tablet1 tablet Orally twice a day; Duration: 30 days 5ActiveclomiPRAMINE HCl 75 MG Capsule2 capsule at bedtime Orally Once a day; Duration: 30 daysActiveAdderall XR 30 MG Capsule Extended Release 24 Hour1 capsule in the morning with a 10 mg capsule Orally Once a dayActivePrazosin HCl 2 MG Capsule1 capsule at bedtime Oral Once a day; Duration: 30 daystake with 1 mg capsuleActivebuPROPion HCl ER (XL) 300 MG Tablet Extended Release 24 Hour1 tablet in the morning Oral Once a day; Duration: 30 daysActiveCephalexin 250 MG Capsule1 capsule Orally Once a dayActivetiZANidine HCl 4 MG Tablet1 tablet every 6 hrs prn Orally Once a dayActiveOLANZapine 2.5 MG TabletTAKE 1 TABLET BY MOUTH TWICE A DAY; Duration: 30ActiveEscitalopram Oxalate 20 MG TabletOral; Duration: 30 DaysActiveCyclobenzaprine HCl 5 MG TabletTAKE 1 TABLET BY MOUTH THREE TIMES A DAY FOR 14 DAYS Oral; Duration: 14 DaysActive Social History Tobacco Use: Social History Observation Description Date Details (start date - stop date) Former Smoker NA - NA Social History GeneralSocial InfoQuestionAnswerNotesTransition of Care:ER/UC/hospital since last office visit?Yes, report on [facility] ER for attempted suicide 08/14/24 Depression Screening [...] half the days(Consider Suicide Assessment Risk) Total Bqjfv18DdypnchycexkyTkgaia DepressionSubstance abuse/mental health issues of patient/familyPatient -Caffeine [...] year?2 to 3 times per week (3 points)Crcvoa5Hiyritgzhpifmp PositiveTobacco Use:Social InfoQuestionAnswerNotesTobacco Control (Standard) Tobacco use:Former smoker? How long has it been since you last smoked?Greater than 10 years Problems Problem Type SNOMED Code ICD Code Onset Dates Problem Status W/U Status Risk Notes Problem Bipolar 1 disorder (979653164) Bipolar 1 disorder (F31.9) ActiveconfirmedProblemInsomnia (983192936)Insomnia, unspecified type (G47.00) ActiveconfirmedProblemAttention deficit hyperactivity disorder (458390647)ADHD (attention deficit hyperactivity disorder), combined type (F90.2)Activeconfirmed ProblemPosttraumatic stress disorder (94364656)PTSD (post-traumatic stress disorder) (F43.10)ActiveconfirmedProblemModerate recurrent major depression (93348898)Moderate episode of recurrent major depressive disorder (F33.1)Active confirmedProblemObsessive-compulsive disorder (086706383)Obsessive-compulsive disorder, unspecified type (F42.9)ActiveconfirmedProblemGeneralized anxiety disorder (85163704)Anxiety, generalized (F41.1)Activeconfirmed Vital Signs Heart Rate 89 /min 03/10/2025 Respiratory Rate20 /min12/06/20249726Cfpyqakl60 %03/10/2025lood pressure diastolic 83 mm Hg03/10/20254007Rdxmxt68 in03/10/2025lood pressure ibjnjrfj073 mm Hg 03/10/20251567Shgufs266.2 lbs105/10/2024BMI38.81 kg/m203/10/2025 Encounters Encounter Location Date Provider Diagnosis [facility] [address] [place] [address] 09/06/2024 [facility] [place] [address] [facility] [place] [address] 11/06/2024[facility] [place] [address] [address] [place] [address] [place] [address]/Tracey [facility] [address] [place] [address]/[facility] [place] [address]/[facility] [place] [address]/[facility] [place] [address]/Tracey [facility] [address] [place] [address] 11/15/2024[facility] [place] [address]/[facility] [address] [place] [address]/08/2024[place]y [id number] [facility] [place] [address]/Tracey HyltonBipolar 1 disorder F31.9 and Anxiety, generalized F41.1[facility] Euwmmkx845 [facility] [place] [address] 09/13/2024Tracey HyltonObsessive-compulsive disorder, unspecified type F42.9 ; Bipolar 1 disorder F31.9 ; Moderate episodeof recurrent major depressive disorder F33.1 ; ADHD (attention deficit hyperactivity disorder), combined type F90.2 and Insomnia, unspecified type G47.00[facility] Xxq[address]rn637 [facility] [place] [address]/12/2024Tracey HyltonBipolar 1 disorder F31.9 ; Anxiety, generalized F41.1 ; Insomnia, unspecified type G47.00 and ADHD (attention deficit hyperactivity disorder), combined type F90.2[facility] [address] [facility] [place] [address]/10/2024Tracey HyltonInsomnia, unspecified type G47.00 and Bipolar 1 disorder F31.9[facility] [address] [place] [address] 12/06/2024Tracey HyltonBipolar 1 disorder F31.9[facility] [address] [place] [address]/06/2024Tracey HyltonAnxiety, generalized F41.1 ; Bipolar 1 disorder F31.9 and PTSD (post-traumatic stress disorder) F43.10[facility] [address] [place] [address]/Tracey HyltonBipolar 1 disorder F31.9 Assessments Encounter Date Diagnosis [...] states she currentlyworks from home for the [employer]. Based on DSM V, this patient meets [...] and counseling. f/u in 1 month and PRN5Anxiety, generalized (ICD-10 - F41.1)Anxiety stable. Will continue current medication. F/U 1month & PRN15Bipolar 1 disorder (ICD-10 - F31.9) Patient will continue current treatment plan. increased Clomipramine to 150mg will trial Lybalvi 5/10mg 1/2 tab x 1 week then increase to 1 tab daily. gave samples from sample stock refilled Wellbutrin f/u 1 month Patient verbally acknowledges understanding instructions including medication education and has no further questions comments or concerns at this time. . Recommended treatment for Bipolar disorder includes [...] control _Improve social and interpersonal functioning . Patient/Guardian [...] consented to the start/continuation of the treatment. 10/28/2024ipolar 1 disorder (ICD-10 - F31.9) Increased Vraylar [...] consented to the start/continuation of the treatment. 12/25/2024PTSD (post-traumatic stress disorder) (ICD-10 - F43.10) will trial increasing Prazosin to 3mg at bedtime, her nightmare/terrors have decreased but still having 3-4 per night. f/u in 1 month and PRN 12/06/2024ipolar 1 disorder (ICD-10 - F31.9) medications [...] consented to the start/continuation of the treatment. 09/13/2024Moderate episode of recurrent major depressive disorder [...] Patient verbalized understanding, in agreement with plan. 09/30/2024Insomnia, unspecified type (ICD-10 - G47.00) Refilled [...] prescription sleep aides Prescribed Seroquel 50mg at roqyrdn0012/06/2024OtherBody Mass Index: Care Instructions material was published, Body Mass Index: Care Instructions material was printed Plan Of Treatment No Information Insurance Providers Payer Name Payer Address Payer Phone Subscriber Number Group Number Insured Name Patient Relationship to Insured Coverage Start Date Coverage End Date REPLACED BY [facility] [address] [address] [place] [address] [id number] Vanesa HARPER - patient is the [id number] 20[facility] [address] [place] [phone], YESSICASelf - patient is the [id number] 2024 Medical (General) History Medical History History ICD Code HTN DEPRESSIIONANXIETYPTSDADHDOBESEASTHMAexcessive sweatingdigestive problems Surgical History Surgery Date(Month/Year) ANKLE SURGERY 05/2024 LAP AT CSECTION UMWWYPBETWS22/2023CSECTION X 3
--- OUTSIDE RECORDS SUMMARY | 2025-03-27 11:47 | XMS_ITS | Encounter Summary ---
Author Organization [facility] Address [address] [place] [address] Care Team Providers Care V Groove Cutter Name Role Phone Emerald Sanchez MD Unavailable Emerald Sanchez MD Primary Care Provider [phone] Reason for Visit * ReasonOnset DateCommentsAFO - NEEDS ODZPMHR2502/12/2025 Encounter Details DateTypeDepartmentCare Team (Latest Contact Info)Aovbxtusahm22/22/2025Telephone [facility] [address] [place] [address] Milton Duvall, DPM FACFAS [address] [place] [address] AFO - NEEDS SCANNED Social History Tobacco UseTypesPacks/DayYears UsedDateSmoking Tobacco: Every [...] relatives?Once a week05/09/2024How often do you attend confucianist or confucianism services?Never05/09/2024Do you belong to any clubs or organizations such as confucianist groups, unions, fraternal or athletic groups, or school groups?Yes05/09/2024How often do you attend meetings of the clubs or organizations you belong to?Never05/09/2024re you , , , , never , or living with a partner?Alewfmc0405/09/2024 AUDIT-CAnswerDate RecordedQ1: How often do you have a drink containing alcohol? 2-4 times a month05/09/2024Q2: How many drinks containing alcohol do you have on a typical day when you are drinking?1 or Q3: How often do you have six or more drinks on one occasion?Less than lcgowww9105/09/2024Overall Financial Resource Strain (CARDIA)AnswerDate RecordedHow hard is it for you to pay for the very basics like food, housing, medical care, and heating?Not hard at all 05/09/2024PHQ-2AnswerDate RecordedPatient Health Questionnaire-2 Score0 03/27/2025[facility] [place] [facility] Occup[facility] Health - Occupational Stress QuestionnaireAnswerDate [...] steady place to sleep or slept in [facility] (including now)?No04/18/2023Housing Stability Vital SignAnswerDate RecordedIn the last 12 months, was there a time when you were not able to pay the mortgage or rent on time?No05/09/2024In the past 12 months, how many times have you moved where you were living?t any time in the past 12 months, were you homeless or living in a custodial (including now)?No 05/09/2024CommentsNoSex and Gender InformationValueDate RecordedSex Assigned at BirthNot on fileLegal XulGckhpu88/15/2023 7:29 PM EDTGender Identity Not on fileSexual OrientationNot on filedocumented as of this encounter Miscellaneous Notes * Telephone Encounter - Caitlin Daugherty - 03/19/2025 1:37 PM EST Pt has appt 03/31/25 (group plan yr October -> September) * Telephone Encounter - Gay Domingo MA - 03/06/2025 9:58 AM EST Patient should have been scanned for a AFO brace. Patient will be stopping in to be scanned. * Telephone Encounter - Gay Domingo MA - 03/03/2025 4:49 PM EST Patients scanned for orhotics and sent to [employer] on 03/03/25 * Telephone Encounter - Caitlin Daugherty - 02/20/2025 1:51 PM EDT Pt notified of benefits, she would like to proceed. Scan and send next appt - 03/03/25 (note in appt screen) * Telephone Encounter - Cailtin Daugherty - 02/20/2025 1:47 PM EDT Left msg to go over benefits. Note in appt screen to get scanned - 03/03/25 * Telephone Encounter - Caitlin Daugherty - 02/20/2025 10:14 AM EDT Per Yvonne with [employer]MO Ref # [id number] Group year plan (October -> September) L1970 / L2820 / L1960 Dx: M65.871 / M77.51 Covered @ 100% - ded/oop met DED: $400 Met OOP: $2500 Met No PA, no exclusions, 2 in 1 day (none purchased) documented in this encounter Plan of Treatment DateTypeDepartmentCare Team (Latest Contact Info)Fvqmyiznvqs18/08/2025 4:50 PM ESTOffice Visit [facility] [address] [place] [address] Milton Duvall, DPM FACFAS [address] [facility] [place] [address] 04/08/2025 3:00 PM ESTOffice Visit [facility] [place] [facility] [address] [facility] [address] [place] [address] Emerald Sanchez MD [address] [facility] [address] [place] [address] 06/05/2025 3:00 PM ESTOffice Visit [facility] [address] [facility] [address] [place] [address] Jatin Cabrera MD [address] [facility] [address] [address] documented as of this encounter Goals GoalPatient Goal TypeAssociated ProblemsRecent ProgressPatient-Stated?Author Help patient manage antidepressant medication Care PlanPatient on antidepressant monitoring Emerald Rain MD Baseline PHQ-9 Care PlanBaseline PHQ-9Emerald Underwood, MDdocumented as of this encounter Visit Diagnoses Diagnosis Foot drop, left- Primary Other acquired deformity of ankle and foot documented in this encounter Additional Health Concerns Active ProblemsNoted DateDiagnosed DatePatient on antidepressant monitoring plan 4Baseline PHQ-904AssessmentNoted TimePHQ-9 Depression Total Score: 13001/06/2025 10:55 AM EDTdocumented as of this encounter Care Teams Team MemberRelationshipSpecialtyStart DateEnd Date Emerald Sanchez MD [address] [facility] [address] [place] [address] PCP - Medical [employer]7/04/1911 Emerald Sanchez MD [address] [facility] [address] [place] [address] PCP - GeneralFaiaabdelrahman Medicine08/30/22documented as of this encounter
--- OUTSIDE RECORDS SUMMARY | 2025-03-27 11:47 | XMS_ITS | Clinical Summary ---
Author Organization [employer] [facility] Address [id number] [address] [place] [address] Care Team Providers Care Fur Stretcher Name Role Phone Unavailable Primary Care Provider Unavailabl e Social History Tobacco UseTypesPacks/DayYears UsedDateSmoking Tobacco: Never AssessedChildcare AnswerDate LulrclyfDmutqaqewHrujtri48/12/2019EmploymentAnswerDate Recorded GoipgrnxudXxfsexq87/12/2019Purpose - LifeAnswerDate RecordedPurpose and direction in sxfbGmaajaa75/11/2021CommentsUnknownSex and Gender InformationValueDate RecordedSex Assigned at BirthNot on fileLegal SexFemale 11/27/2014 12:08 PM EDTGender IdentityNot on fileSexual OrientationNot on file Plan of Treatment Health MaintenanceDue DateLast DoneCommentsDepression Tjrgpetgk27/07/2001Tobacco Cqaivmrsz16/07/2001Adult BMI Mshrpcqzk95/07/2007DTaP,Tdap and Td Vaccines (1 - Tdap)09/29/2007Pap Smear2009Influenza Soqiwqj3812/23/2024 Medical Devices Not on file Insurance
[2025-03-27 11:49] LABS: Anion Gap 11.6; Blood Urea Nitrogen 12.0 mg/dL (7.0-18.0); Calcium 9.0 mg/dL (8.5-10.1); Carbon Dioxide 32.0 mmol/L (21.0-32.0); Chloride 101 mmol/L (98-107); Estimated GFR (African America >60 (>=60 mL/min/1.73m^2); Estimated GFR (Non-African Ame >60 (>=60 mL/min/1.73m^2); Glucose 142 mg/dL (74-106); Potassium 3.6 mmol/L (3.5-5.1); Sodium 141 mmol/L (136-145)
--- OUTSIDE RECORDS SUMMARY | 2025-03-27 11:52 | XMS_ITS | CCD ---
Author Organization [facility] Care Team Providers Care Fly Finisher Name Role Phone OZIEL MONTEIRO Referring Unavailable GIOVANI HAGEN Primary Care Unavailable MD Erwin Hylton Attending Provider MD Giovani Hagen Primary Care Provider [phone] Giovani Hagen Primary Care Provider Erwin Hylton [...] MATUTE Primary Care Unavailable ORTIZ ., DR DHALWIAL Attending Unavailable ORTIZ ., DR DHALIWAL Admitting [...] Giovani Hagen MD Primary Care Provider [phone] BLOODMARY Admitting Unavailable BLOOD, MARY Culver Attending Unavailable JACKSON MONTENEGRO Consulting Unavailable SONIYA PATEL Referring Unavailable HIEU, [facility] Primary Care Unavailable MAKENNA AMAYA Consulting Unavailable Giovani Hagen MD Primary Care Provider Giovani Hagen MD Unavailable Giovani Hagen MD Primary Care Provider [phone] Deena Lyn CNP Unavailable [phone] SOLO CARTY Referring Unavailable [facility] Unavailable Darwin Starr DO R Unavailable Giovani Hagen MD Primary Care Provider Dank Green MD Admit Provider Dank Green MD Attending Provider [phone] Dank Green Admitting Unavailab Rahul Ugarte Attending Unavailable [place] Unavailable [place] , [facility] Care Provider [phone] Deena Lyn APRN Unavailable [phone] Iliana Cramer Attending Unavailable Madhuri ORTIZ Attending Unavailable Iliana Cramer Attending Unavailable ILIANA MERCADO Referring Unavailable HIEU, [facility] Primary Care Unavailable MARIO HARPER Referring Unavailable HIEU, [facility] Primary [facility] Primary Care Unavailable DAKHIL, NOMA Referring Unavailable HIEU, [facility] Primary Care Unavailable ILIANA MERCADO Referring Unavailable HIEU, [facility] Primary Care Unavailable OBED BHATT Attending Unavailable ILIANA MERCADO Referring Unavailable HIEU, [facility] Primary Care Unavailable JOEL PRYOR Attending Unavailable DAKHIL, NOMA Referring Unavailable HIEU, [facility] Primary Care Unavailable LYDIA KELLEY Attending Unavailab le HIEU, [facility] Primary Care Unavailable DARWIN STARR Referring Unavailable BASHOURLILYI S Attending Unavailable HIEU, [facility] Primary Care Unavailable BASHOUR JAVY S Referring Un[facility] Primary Care Unavailable DAKHIL, NOMA Referring Un[facility] Primary Care Unavailable MARIO HARPER Attending Unavailable [facility] Primary Care Unavailable MARIO HARPER Referring Unavailable [facility] Primary Care Unavailable SHAILA MERCADOEN Referring Unavailable [facility] Primary Care Unavailable ILIANA MERCADO Referring Unavailable HIEU, [facility] Primary Care Unavailable KOCHAR, ARSHNEEL Referring Unavailable [facility] Primary Care Unavailable KOCHAR, ARSHNEEL Referring Unavailable HIEU, RUGEN [facility] Primary Care Unavailable KOCHAR, ARSHNEEL Referring Unavailable KOCHAR, ARSHNEEL Attending Unavailable [facility] Primary Care Unavailable MARIO AHRPER Attending Unavailable DAKHIL, NOMA Referring Unavailable HIEU, GIOVANI [facility] Primary Care Unavailable EMMA ROMERO Attending Unavailable JAVY BOUDREAUX Referring Un[facility] Care Unavailable SOLO CARTY Referring [facility]available [facility] Primary Care Unavailable DAKHIL, NOMA Attending Unavailable HIEU, GIOVANI [facility] Primary Care Unavailable ILIANA MERCADO Attending Unavailable HIEU, GIOVANI [facility] Primary Care Unavailable MARIO HARPER Referring Unavailable LYDIA ROCK Attending Unavailable HIEU, RUGEN M Primary Care Unavailable HIEU, RUGEN M Primary Care Unavailable HIEU, KIRANEN M Primary Care Unavailable DOLBRAN, MILTON Roth Attending Unavailable DOLBRAN, MILTON Roth Referring Unavailable AYLEEN KRISHNAMURTHY Attending Unavailable HIEU, GIOVANI M Attending Unavailable PRATEEK PITTS Attending Unavailable DARWIN STARR Attending Unavailable DOLBRAN, MILTON Roth Attending Unavailable DOLBRAN, MILTON Roth Attending Unavailable DOLMILTON SOTOMAYOR Referring Unavailable HIEU, GIOVANI Bob Attending Unavailable DOLBRAN, MILTON Roth Attending Unavailable HIEU, GIOVANI Bob Attending Unavailable DOLCE, MILTON Roth Attending Unavailable DOLCE, MILTON Roth Attending Unavailable HIEU, GIOVANI Bob Attending Unavailable DOLBRAN, MILTON Roth Attending Unavailable HIEUGIOVANI M Attending Unavailable HEMSANDY ROBERTO Attending Unavailable DEENA LYN Attending Unavailable DEENA LYN Attending Unavailable SHANNON OCHOA Attending Unavailab le HEMMERSANDY Attending Unavailable DOLBRAN, MILTON Roth Attending Unavailable DOLMILTON SOTOMAYOR Referring Unavailable HIEU, GIOVANI M Attending Unavailable JATIN PARISI Attending Unavailable DOLCE, MILTON Roth Attending Unavailable HIEU, GIOVANI Bob Attending Unavailable JATIN PARISI Referring Unavailable HEMMERSANDY Attending Unavailable ARUN TRIANA Attending Unavailable HIEU, GIOVANI M Referring Unavailable ARUN TRIANA Attending Unavailable HIEU, GIOVANI M Referring Unavailable ANITRA SANCHEZ Attending Unavailable HIEU, KIRANEN M Referring Unavailable DARWIN STARR Attending Unavailable ZHEN BURGESS Attending Unavailable HIEU, KIRANEN M Referring Unavailable HIEU, GIOVANI M Attending Unavailable DEENA LYN Attending Unavailable HIEUGIOVANI M Attending Unavailable JOSEPHINE GILMAN Attending Unavailable DARWIN STARR Attending Unavailable PRATEEK PITTS Attending Unavailable HIEU, RUGEN M Referring Unavailable GIOVANI HAGEN Attending Unavailable MILTON FRAIRE Attending Unavailable MILTON FRAIRE Attending Unavailable AYLEEN KRISHNAMURTHY Attending Unavailable MILTON FRAIRE Attending Unavailable Allergies Allergy ClassificationReported Allergen(s)Allergy TypeDate of OnsetReaction(s) FacilityIodine (and Iodine containting drugs) (2 sources)IodineDrug Qivfkfj54-86-0715Qhvxbfpn, ItchCleveland [facility] HospitalIohexol (2 sources)IohexolDrug Zouoogk28-35-7991UvuxsoeGyxabmpwf Clinic (20 sources)Iodine; Translations: [IODINE]Drug Zysqrpn22-21-3211Xvcuwhly, [facility] (20 sources)Iohexol; Translations: [IOHEXOL]Drug Bnyrjlj93-72-6157Upzzyxn [facility] (1 source)CatPropensity to adverse reactionsUF Health The Villages® Hospital [employer] Other (16 sources)tree nut, unspecified; Translations: [TREE NUTS]Propensity to adverse uhdvywiph31-35-8738iohczxgeqdpPmrwi [place] [employer] Other (1 source)peanut allergenic extractDrug AllergyMagruder Memorial Hospital Repository (1 source)Cat/Feline Product DerivativesDrug allergy (disorder)56-93-1050HwdMagruder Memorial Hospital Repository (20 sources)Cat Hair ExtractAllergy to ssipgeqas39-10-6292DzmnpllamolNLOS Healthcare (20 sources)Iodinated Contrast Media; Translations: [IODINATED CONTRAST MEDIA] Drug Bnhxdao75-36-3327Zcukm, Anaphylaxis, ItchingResearch [facility]ton [facility] (20 sources)Prednisone & DiphenhydramineDrug Emogdst47-68-7860RT[facility] (16 sources)Cat Dander; Translations: [cat dander]Drug Pyfibei73-03-2061 [facility] (1 source)tree nut, unspecifiedDrug allergy (disorder)62-03-9909DppelyqdxGeorgetown [facility]al Hospital Repository (1 source)No Known Medication Allergies; Translations: [No Known Medication Allergies]Propensity to adverse reactions (disorder)[facility] Repository Medications Current Medications MedicationDrug Class(es)DatesSig (Normalized)Sig (Original)acetaminophen 1000 mg oral tablet (5 sources)Start: 36-72-8381mmdv 1000 mg by mouth once daily as needed for pain Tylenol 1,000 mg, Oral, Daily, PRN as needed for pain, Refills(s) 0 Start Date: 06/12/18 Status: Ordered Repeat number: 1acetaminophen 325 mg / HYDROcodone bitartrate 5 mg oral tablet (9 sources)Opioid AgonistStart: 09-06-2024 End: 06-31-2431iawb 1 tablet by mouth every four hours as neededHYDROcodone- acetaminophen ([place]) 5-325 MG tablet Take 1 tablet by mouth every 4 (four) hours if needed 09/06/2024 09/17/2024 Discontinued (Therapy completed)Start: 05-09-2024 End: 30-27-0094auni 1 tablet by mouth every six hours for painHYDROcodone- acetaminophen ([place]) 5-325 MG tablet Indications: Cervical radiculopathy due to degenerative joint disease of spine Take 1 tablet by mouth every 6 (six) hours if needed for severe pain for up to 5 days 20 tablet 05/09/2024 05/14/2024 ActiveStart: 04-16-2024 End: 10-30-4519xuxq 1 tablet by mouth every six hours for painHYDROcodone- acetaminophen ([place]) 5-325 MG tablet Indications: Sprain of anterior talofibular ligament of right ankle, subsequent encounter Take 1 tablet by mouth every 6 (six) hours if needed for severe pain for up to 5 days 20 tablet 04/16/2024 04/21/2024 [id number] 200 actuat albuterol 0.09 mg/actuat metered dose inhaler (20 sources)beta2-Adrenergic AgonistStart: 60-52-8287temn 2 puff(s) by inhalation every four hours as needed for wheezingAlbuterol Sulfate 90 mcg/actuation HFA aerosol inhaler Active 2 PUFF INHALATION Every 4 hours as nee ded for shortness of breath or wheezing August 18, 2024 12:00am FreeTextSi puff as needed Inhalation every 4 hrs; Note: Source Status: Taking; Provider: Concetta Hood ( )Start: 08-06-2024 End: 56-67-6286dgot 2 puff(s) by inhalation every six hours for wheezing albuterol HFA 90 mcg/act inhaler Indications: Mild intermittent asthma without complication (HCC) Inhale 2 puffs every 6 (six) hours if needed for wheezing 18 g 3 10/08/2024 ActiveStart: 04-16-2024 End: 33-91-3091ufzzjvisu (2.5 MG/3ML) 0.083% nebulizer solution Indications: Moderate persistent asthmatic bronchitis with acute exacerbation (HCC) Take 3 mL (2.5 mg) by nebulization every 6 (six) hours if needed for wheezing 75 mL 11 04/16/2024 04/16/2025 ActiveStart: 49-00-7486vvzy 2 puff(s) by inhalation every six hours as neededalbuterol HFA 90 mcg/act inhaler INHALE 2 PUFFS INTO THE LUNGS EVERY 6 HOURS NEEDED FOR 30 DAYS 08/31/2022 ActiveStart: 12-17-2018 albuterol 2 puffs every 4 hours as needed for SOB/wheezing, Refills(s) 0 Start Date: 12/17/18 Status: Ordered Repeat number: 1Start: 87-59-6244qtcnszvmx 2 puffs every 4 hours as needed [...] 2.5 mg extended release oral capsule (20 sources)Central Nervous System StimulantStart: 12-16-2024 End: 42-92-9122eayz 1 capsule by mouth every twenty-four hours [...] 30 capsule 02/27/2025 03/29/2025 ActiveStart: 12-16-2024 End: 11-60-6804ttym 1 capsule by mouth once dailyamphetamine-dextroamphetamine XR (Adderall XR) 30 MG 24 hr capsule Indications: Attention deficit hy peractivity disorder (ADHD), predominantly inattentive type Take 1 capsule (30 mg) by mouth Daily Do not crush or chew. Take with the 10mg daily 30 capsule 02/27/2025 03/29/2025 ActiveStart: 27-27-4372qquf 1 capsule by mouth once daily in the morningDextroamphetamine-Amphetamine 10 mg capsule,extended release 24hr Active 10 MG PO Every morning August 16, 2024 12:00amStart: 07-16-2024 End: 78-83-1672mgvk 1 capsule by mouth every twenty-four hours [...] 10/08/2024 12/12/2024 Discontinued (Therapy completed)Start: 07-16-2024 End: 88-13-5847vwjl 1 capsule by mouth once dailyamphetamine-dextroamphetamine XR (Adderall XR) 30 MG 24 hr capsule Indications: Attention deficit hy peractivity disorder (ADHD), predominantly inattentive type Take 1 capsule (30 mg) by mouth Daily Do not crush or chew. Take with the 10mg daily 30 capsule 10/08/2024 12/12/2024 Discontinued (Therapycompleted)Start: 06-06-2024 End: 06-93-1656ezpo 1 capsule by mouth every twenty-four hours [...] 30 capsule 06/06/2024 07/06/2024 ActiveStart: 11-30-2023 End: 41-47-1748xqvr 1 capsule by mouth once dailyamphetamine-dextroamphetamine XR [...] (1 source)Nitroimidazole Antimicrobial, Tetracycline-class AntimicrobialStart: 07-04-2022 End: 26-74-2968akev 3 capsules by mouth at bedtimeBis Subcit Gob-Zgwxx-Wnejoecd (PYLERA) 140-125-125 mg per capsule Take 3 capsules by mouth before meals and at bedtime for 10 days. 120 capsule 0 07/04/2022 07/14/2022 ActiveComment on above: Take 3 capsules by mouth before meals and at bedtime for 10 days.buPROPion (20 sources)AminoketoneStart: 89-12-8548TOMHEHEXG HYDROCHLORIDE ER (XL) 300 MG TB24 BUPROPION HYDROCHLORIDE ER (XL) 300 MG TB24 Start Date:12/31/24 Status: Ordered Repeat number: 1Start: 91-33-0128xoBPDEzuj XL (WELLBUTRIN XL) 300 mg 24 hr tablet 300 mg. 11/22/2024 ActiveStart: 59-42-8529mghl 1 tablet by mouth every twenty-four hours in the morningbuPROPion XL (Wellbutrin XL) 150 MG 24 hr tablet Take 150 mg by mouth in the morning. 09/13/2024 ActiveStart: 06-29-2022 Wellbutrin SR Oral, BID Start Date: 06/29/22 Status: OrderedStart: 05-25-2022 End: 66-13-4264dhGZHSmgf SR (ZYBAN SR; WELLBUTRIN SR) 150 mg 12 hr tablet 05/25/2022 12/19/2023 Discontinued (Other)take 1 tablet by mouth every twelve hoursWellbutrin XL 150 MG 1 tablet in the morning Orally TWICE A DAY Active cariprazine 4.5 mg oral capsule (20 sources)Atypical AntipsychoticStart: 65-13-5202qvrc 1 capsule by mouth once dailyCariprazine HCl (Vraylar) 4.5 MG capsule Indications: Bipolar disorder, in partial remission, most recent episode manic (HCC) Take 1 capsule by mouth Daily 100 capsule 3 08/30/2024 ActiveStart: 12-28-2023 End: 89-33-2708kelp 1 mg by mouth once dailyVraylar 4.5 mg oral capsule mg cap(s), Oral, Daily Start Date: 12/28/23 Status: OrderedStart: 08-14-2023 End: 71-76-2732vayv 1 capsule by mouth once dailyVraylar 4.5 MG capsule Indications: Bipolar disorder, in partial remission, most recent episode manic (CMS/HCC) TAKE 1 CAPSULE BY MOUTH EVERY DAY 30 capsule 5 08/14/2023 ActiveStart: 10-28-3867iwyx 1 capsule by mouth once dailyVraylar 1.5 mg oral capsule 1.5 mg = 1 cap(s), Oral, Daily Start Date: 05/01/19 Status: Orderedtake 1 capsule by mouth once dailycariprazine (VRAYLAR) 3 mg cap Take by mouth once daily. 0 Active Vraylar ActiveComment on above:Take by mouth once daily.1 capsule.cefuroxime 500 mg oral tablet (5 sources)Cephalosporin AntibacterialStart: 04-18-2024 End: 19-35-5689mkjn 1 tablet by mouth in the morningcefuroxime (Ceftin) 500 MG tablet Indications: Acute bronchitis with asthma (CMS/HCC) Take 1 tablet(500 mg) by mouth in the morning and 1 tablet (500 mg) before bedtime. Do all this for 10 days. 20 tablet 04/18/2024 04/28/2024 Activecelecoxib 100 mg oral capsule (15 sources)Nonsteroidal Anti-inflammatory DrugStart: 01-13-2025 End: 34-70-7674mphj 1 capsule by mouth in the morningcelecoxib (CeleBREX) 100 MG capsule Indications: Lumbar radiculopathy Take 1 capsule (100 mg) by mouth in the morning and 1 capsule (100 mg) before bedtime. 180 capsule 3 01/13/2025 01/13/2026 Activecephalexin 500 mg oral capsule (20 sources)Cephalosporin AntibacterialStart: 09-06-2024 End: 97-26-5284vdwn 1 capsule by mouth in the morningcephalexin (Keflex) 500 MG capsule Indications: Urinary tract infection without hematuria, site unspecified Take 1 capsule (500 mg) by mouth in the morning and 1 capsule (500 mg) before bedtime. 20 capsule 10/08/2024 12/12/2024 Discontinued (Other)Start: 08-17-2024 End: 62-69-6786nyjzhuciyo (Keflex) 250 MG capsule Take 250 mg by mouth 08/17/2024 09/02/2024 Discontinued (Other)Start: 03-13-2024 End: 78-75-4340abghlvehul (Keflex) 250 MG capsule TAKE 1 CAPSULE BY MOUTH AFTER INTERCOURSE TO PREVENT UTI 03/13/2024 08/01/2024 Discontinued (Other)Start: 87-95-5106Mvlbtb 250 mg Cap See Instructions, 1 cap po after intercourse to prevent UTI, # 20 cap(s), Refills(s) 2, Pharmacy: [facility]/pharmacy #[id number], 158, cm, 12/28/23 15:24:00 EDT, Height/Length Dosing, 87, kg, 12/28/23 15:24:00 EDT, Weight Dosing Start Date: 12/28/23 Status: Ordered Quantity: 20.0 Unit: cap(s) Re peat number: 3 Indications: Urinary tract infection, site not specified; Calculus of kidney; Nicotine dependence, unspecified, uncomplicated;Start: 50-53-9265nkgr 1 tablet by mouth twice daily, then take 1 tablet by mouth once dailyKeflex 500 mg Cap See Instructions, Take 1 tab by mouth twice a day for 10 days. Then take 1 tab once a day for 30 days., # 50 cap(s), Refills(s) 0, Pharmacy: [facility]/pharmacy #[id number], 158, cm, 06/29/22 8:19:00 EST, Height/Length Dosing, 84.8, kg, 06/29/22 8:19:00 EST, Weigh... Start Date: 06/29/22 Status: Orderedclobetasol propionate 0.5 mg/ml topical cream (20 sources)CorticosteroidStart: 01-22-2024 End: 77-45-3506mcgwdjdtha (Temovate) 0.05 % cream Indications: Dyspareunia in female , Urethral pain Apply 1 application topically Daily Apply pea-size amount daily for 30 days and then every other day for another 30 days. 60 g 1 01/22/2024 03/22/2024 ActiveclomiPRAMINE hydrochloride 50 mg oral capsule (20 sources)Tricyclic AntidepressantStart: 10-03-2024 End: 12-61-4419ualy 1 capsule by mouth at bedtimeclomiPRAMINE (Anafranil) 50 MG capsule Indications: Anxiety , Trichotillomania TAKE 1 CAPSULE BY MOUTH AT BEDTIME 30 capsule 6 10/03/2024 12/12/2024 Discontinued (Other)Start: 08-01-2024 End: 79-04-1061kzcw 1 capsule by mouth at bedtimeclomiPRAMINE (Anafranil) 50 MG capsule Indications: Anxiety , 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CMS/HCC) TAKE 1 CAPSULE BY MOUTH AT BEDTIME 30 capsule 09/02/2024 ActiveStart: 07-04-2024 End: 78-93-9151fxfh 1 capsule by mouth at bedtimeClomipramine 25 mg capsule Discontinued 25 MG PO Bedtime August 16, 2024 12:00am August 19, 2024 11:35am clonazePAM 0.5 mg oral tablet (8 sources)BenzodiazepineStart: 92-48-6619wydytrtSUV (KLONOPIN) 0.5 mg tablet Take 1 mg by mouth. 04/02/2024 ActiveStart: 04-01-2024 End: 62-29-2589imbs 1 tablet by mouth in the morningclonazePAM (KlonoPIN) 0.5 MG tablet Indications: Tremors of nervous system Take 1 tablet (0.5 mg) by mouth in the morning and 1 tablet (0.5 mg) before bedtime. 60 tablet 04/01/2024 05/01/2024 ActivecloNIDine hydrochloride 0.1 mg oral tablet (20 sources)Central alpha-2 Adrenergic Agonist End: 03-60-7041qbvKVAyix (Catapres) 0.1 MG tablet 1 (one) time each day at the same time 12/16/2024 Discontinued (Therapy completed)cyclobenzaprine hydrochloride 5 mg oral tablet (4 sources)Muscle RelaxantStart: 45-94-9000arfrjjpnjmbuzbb (FLEXERIL) 5 mg tablet Indications: pelvic pain/muscle spasm Place 1 tab per vaginaup to TID prn pain/spasm, if no effect may try 2 tabs TID prn. 30 tablet 2 12/30/2024 Active Start: 16-21-6103kssw 1 tablet by mouth three times dailycyclobenzaprine (FLEXERIL) 5 mg tablet take 1 tablet by mouth three times a day for 14 days 11/27/2024 Activedapagliflozin 10 mg oral tablet (20 sources)Sodium-Glucose Cotransporter 2 InhibitorStart: 12-16-2024 End: 98-93-5561ynts 1 tablet by mouth once dailydapagliflozin (Farxiga) 10 MG Indications: Weight gain , Borderline diabetes Take 1 tablet (10 mg) by mouth Daily 30 tablet 11 12/16/2024 12/16/2025 Activediclofenac sodium 75 mg delayed release oral tablet (20 sources)Nonsteroidal Anti-inflammatory DrugStart: 75-74-3603gqni 1 tablet by mouth twice dailydiclofenac, EC, (VOLTAREN) 75 mg EC tablet 1 tab(s) orally 2 times a day for 30 day(s) 03/19/2024 ActiveStart: 03-19-2024 End: 88-01-5785wddenlthat (Voltaren) 75 MG EC tablet every 12 (twelve) hours 03/19/2024 05/09/2024 Discontinued (Other)dicyclomine hydrochloride 10 mg oral capsule (13 sources)AnticholinergicStart: 09-26-2024 End: 78-58-1827gbsr 2 capsules by mouth three times daily as neededdicyclomine (Bentyl) 10 MG capsule Indications: Cramp, abdominal Take 2 capsules (20 mg) by mouth 3(three) times a day as needed (cramping) 240 capsule 11 09/26/2024 12/12/2024 Discontinued (Other)doxepin hydrochloride 100 mg oral capsule (20 sources)Tricyclic AntidepressantStart: 12-16-2024 End: 85-04-4835aahj 2 capsules by mouth at bedtimedoxepin (SINEquan) 100 MG capsule Indications: Major depressive disorder, recurrent, moderate (HCC)Take 2 capsules (200 mg) by mouth at bedtime 60 capsule 5 01/20/2025 ActiveStart: 12-16-2024 End: 60-04-5806zrjk 1 capsule by mouth at bedtimedoxepin (SINEquan) 50 MG capsule Indications: Major depressive disorder, recurrent, moderate (HCC) Take 1 capsule (50 mg) by mouth at bedtime 100 capsule 2 12/16/2024 12/16/2024 Discontinued (Reorder)Start: 12-07-2021 End: 92-44-4424cyrfsto HCl (DOXEPIN ORAL) 12/07/2021 11/02/2022 Discontinued Start: 12-07-2021 End: 02-99-1931bjfomhq HCl (DOXEPIN ORAL)Start: 77-12-0556vsabelj HCl (DOXEPIN ORAL)escitalopram 20 mg oral tablet (20 sources)Serotonin Reuptake InhibitorStart: 06-06-2024 End: 74-69-3969dlxw 1.5 tablets by mouth in the morningescitalopram (Lexapro) 20 MG tablet Indications: Bipolar disorder, in partial remission, most recent episode manic (HCC) Take 1.5 tablets (30 mg) by mouth in the morning. 45 tablet 2 06/06/2024 10/10/2024 DiscontinuedStart: 11-09-2023 End: 06-88-3530pkdt 1 tablet by mouth once daily in the morningescitalopram (Lexapro) 20 MG tablet Indications: Bipolar disorder, in partial remission, most recent episode manic (CMS/HCC) TAKE 1 TABLET BY MOUTH EVERY DAY IN THE MORNING 30 tablet 2 05/13/2024 06/06/2024 Discontinued (Reorder)30 actuat fluticasone furoate 0.1 mg/actuat / umeclidinium 0.0625 mg/actuat / vilanterol 0.025 mg/ac tuat dry powder inhaler (20 sources)Anticholinergic, Corticosteroid, beta2-Adrenergic AgonistStart: 73-64-4275njeb 1 puff(s) by inhalation once pkhwwFzcgmzounqx-Vdlpwvmzd-Uzcfos (Trelegy Ellipta) 100-62.5-25 MCG/ACT aerosol powder Indications: Moderate persistent asthmatic bronchitis with acute exacerbation (HCC) INHALE 1 PUFF DAILY 60 each 2 09/03/2024 ActiveStart: 04-16-2024 End: 51-37-4998swse 1 puff(s) by inhalation once daily Rgdvssqehic-Woitoainh-Ujwtne 100-62.5-25 MCG/ACT aerosol powder Indications: Moderate persistent asthmatic bronchitis with acute exacerbation ([facility]) Inhale 1 puff Daily 1 each 04/16/2024 06/25/2024 DiscontinuedStart: 05-24-2022 take 1 puff(s) by inhalation once zhlgrCxniqktgprz-Wfzbgdbyz-Cxswjy 100-62.5-25 MCG/ACT aerosol powder INHALE 1 PUFF INTO THE LUNGS EVERY DAY FOR 30 DAYS 05/24/2022 ActiveStart: 05-24-2022 End: 90-81-4726VZICOWN ELLIPTA 100-62.5-25 mcg inhalation powder 05/24/2022 11/02/2022 Discontinuedfluticasone/umeclidin/vilanter (TRELEGY ELLIPTA INHALATION) (16 sources)fluticasone/umeclidin/vilanter (TRELEGY ELLIPTA INHALATION) Inhale as instructed. Activehydrocortisone acetate 25 mg rectal suppository (20 sources)CorticosteroidStart: 07-08-2024 End: 38-60-5505vknwufdmoiuymv (Anusol-HC) 25 MG suppository UNWRAP AND INSERT 1 SUPPOSITORY RECTALLY EVERY 12 HOURS NEEDED FOR HEMORRHOIDS 07/08/2024 12/12/2024 Discontinued (Other)hydrOXYzine pamoate 25 mg oral capsule (12 sources)AntihistamineStart: 07-04-2024 End: 23-16-7991nbob 1 capsule by mouth every six hourshydrOXYzine pamoate (Vistaril) 25 MG capsule Indications: Anxiety , PTSD (post-traumatic stress diso rder) ([facility]) Take 1 capsule (25 mg) by mouth every 6 (six) hours if needed for itching for up to10 days 30 capsule 07/04/2024 Activeibuprofen 800 mg oral tablet (2 sources)Nonsteroidal Anti-inflammatory DrugStart: 87-04-1848zqtd 800 mg by mouth once daily as needed for painibuprofen 800 mg, Oral, Daily, PRN as needed for pain, Refills(s) 0 Start Date: 06/12/18 Status: Orderedlidocaine 50 mg/ml rectal cream (20 sources)Antiarrhythmic, Amide Local AnestheticStart: 07-08-2024 End: 60-76-9158OwsMwhwg3 5 % cream APPLY 1 APPLICATION TOPICALLY FOUR TIMES DAILY NEEDED FOR PAIN 07/08/2024 09/17/2024 Discontinued (Other)Start: 07-43-6635wqbd 15 mL by mouth every three hours as needed for painLidocaine Viscous 2 % gargle 15 ml as needed for pain Mouth/Throat every 3 hrs Apr, Not-Ckgajw50 hr metoprolol succinate 25 mg extended release oral tablet (20 sources)beta-Adrenergic BlockerStart: 08-13-2024 End: 27-89-5296scxk 1 tablet by mouth once dailymetoprolol succinate XL (Toprol- XL) 25 MG 24 hr tablet Indications: Hypercholesterolemia Take 1 tablet (25 mg) by mouth Daily 100 tablet 3 09/19/2024 Activemontelukast 10 mg oral tablet (20 sources)Leukotriene Receptor AntagonistStart: 04-01-2024 End: 18-00-2864ljas 1 tablet by mouth at bedtimemontelukast (Singulair) 10 MG tablet Indications: Mild intermittent asthma without complication (HCC) Take 1 tablet (10 mg) by mouth at bedtime 30 tablet 11 04/01/2024 04/01/2025 Active OLANZapine 2.5 mg oral tablet (2 sources)Atypical AntipsychoticStart: 22-56-1616RBRRPgmycr (ZYPREXA) 2.5 mg tablet 12/30/2024 ActiveOXcarbazepine 300 mg oral tablet (20 sources)Anti-epileptic AgentStart: 10-10-2024 End: 50-33-1116sliq 0.5 tablet by mouth at bedtime, then take 1 tablet by mouth at bedtimeOXcarbazepine (Trileptal) 300 MG tablet Indications: Numbness and tingling , Atypical migraine Take0.5 tablets (150 mg) by mouth at bedtime for 7 days, THEN 1 tablet (300 mg) at bedtime. 34 tablet 11 10/10/2024 ActiveStart: 10-10-2024 End: 22-30-9146inci 1 tablet by mouth in the morningOXcarbazepine (Trileptal) 300 MG tablet Indications: Lumbar radiculopathy , Atypical migraine Take 1 tablet (300 mg) by mouth in the morning and 1 tablet (300 mg) before bedtime. 60 tablet 2 12/26/2024 12/26/2025 Activephentermine hydrochloride 37.5 mg oral tablet (20 sources)Sympathomimetic Amine AnorecticStart: 07-16-2024 End: 99-97-4843kgnb 1 tablet by mouth in the morningphentermine (Adipex-P) 37.5 MG tablet Indications: Obesity (BMI 35.0-39.9 without comorbidity) TAKE1 TABLET (37.5 MG) BY MOUTH IN THE MORNING 30 tablet 08/29/2024 10/10/2024 Discontinued Start: 12-04-2023 End: 36-72-7824bsag 1 tablet by mouth before mealtimephentermine (Adipex-P) 37.5 MG tablet Indications: Obesity (BMI 35.0-39.9 without comorbidity) Take1 tablet (37.5 mg) by mouth in the morning. Take before meals. 30 tablet 04/30/2024 Activeprazosin 2 mg oral capsule (20 sources)alpha-Adrenergic BlockerStart: 12-16-2024 End: 27-55-7219qslm 1 capsule by mouth in the morning, [...] mg oral tablet (20 sources)Start: 01-14-2025 End: 39-43-5956isej 4 tablets by mouth once daily, then [...] 40 tablet 01/14/2025 01/30/2025 ActiveStart: 12-13-2024 End: 03-65-9642juvp 1 tablet by mouth once dailypredniSONE (Deltasone) 20 MG tablet Indications: Other synovitis and tenosynovitis, right ankle andfoot Take 1 tablet (20 mg) by mouth Daily for 10 days 10 tablet 12/13/2024 12/23/2024 ActiveStart: 60-88-4183gzkapvSYZK (DELTASONE) 10 mg tablet PLEASE SEE ATTACHED FOR DETAILED DIRECTIONS 10/08/2024 ActiveStart: 10-08-2024 End: 61-84-8701illl 4 tablets by mouth once daily, then [...] tablet 10/08/2024 10/10/2024 Discontinued Start: 08-14-2024 End: 23-38-0922ufxc 1 tablet by mouth once dailypredniSONE (Deltasone) 20 MG tablet Indications: Peroneal tendon tear, right, initial encounter Take 1 tablet (20 mg) by mouth Daily for 10 days 10 tablet 08/14/2024 08/24/2024 ActiveStart: 04-16-2024 End: 35-66-2567srpn 4 tablets by mouth once daily, then [...] 40 tablet 04/16/2024 05/02/2024 ExpiredStart: 12-26-2023 End: 85-62-1739kvxw 4 tablets by mouth once daily, then [...] 10 mg oral tablet (20 sources)beta-Adrenergic BlockerStart: 64-08-4717xlkjpndvpbl (Inderal) 10 MG tablet every 12 (twelve) hours 09/30/2024 ActiveStart: 31-76-2779fwlgnlkxkuj (INDERAL) 10 mg tablet every 12 hours. 09/30/2024 Vwaxan88 hr QUEtiapine 50 mg extended release oral tablet (19 sources)Atypical AntipsychoticStart: 09-13-2024 End: 92-13-2443kjcw 1 tablet by mouth every twenty-four hours at bedtime QUEtiapine XR (SEROquel XR) 50 MG 24 hr tablet Take 50 mg by mouth at bedtime 09/13/2024 12/12/2024Discontinued (Other)radiopaque pvc markers-barium sulfate (SITZMARKS) 24 Markers (1 source)Start: 10-09-2024 End: 46-08-7387sxpg 2 capsules by mouth onceradiopaque pvc markers-barium sulfate (SITZMARKS) 24 Markers Take 2 capsules by mouth one time onlyfor 1 dose. Take 2 capsules as directed. 2 capsule 10/09/2024 10/09/2024 ActiveSemaglutide- Weight Management (Wegovy) 0.25 MG/0.5ML solution auto-injector (20 sources)Start: 00-69-9620qpyxag 0.25 mg by subcutaneous injection every week Semaglutide-Weight Management (Wegovy) 0.25 MG/0.5ML solution auto-injector Indications: Obesity (BMI 35.0-39.9 without comorbidity) Inject 0.25 mg under the skin 1 (one) time per week 2 mL 01/08/2025 ActiveStart: 87-93-1576jxjfjb 0.25 mg by subcutaneous injection every weekSemaglutide-Weight Management (Wegovy) 0.25 MG/0.5ML solution auto-injector Indications: Obesity (BMI 35.0- 39.9 without comorbidity) Inject 0.25 mg under the skin 1 (one) time per week 2 mL 01/07/2025 ActiveStart: 10-05-2023 End: 13-49-6032vtchww 0.25 mg by subcutaneous injection every weekSemaglutide- Weight Management (Wegovy) 0.25 MG/0.5ML solution auto-injector Indications: Overweight, Obesity (BMI 30.0-34.9) Inject 0.25 mg under the skin 1 (one) time per week 2 mL 10/05/2023 12/26/2023 Discontinued (Other)Start: 21-44-3576vqiufy 0.25 mg by subcutaneous injection every weekSemaglutide-Weight Management (Wegovy) 0.25 MG/0.5ML solution auto-injector Indications: Overweight, Obesity (BMI 30.0-34.9) Inject 0.25 mg under the skin 1 (one) time per week 2 mL 10/05/2023 ActivetiZANidine 4 mg oral tablet (20 sources)Central alpha-2 Adrenergic AgonistStart: 07-24-2024 End: 17-51-8344naIDKcsopj (ZANAFLEX) 4 mg tablet 10/31/2024 ActivetraMADol hydrochloride 50 mg oral tablet (11 sources)Opioid AgonistStart: 03-27-2024 End: 95-45-2732erzo 2 tablets by mouth every six hours for paintraMADol (Ultram) 50 MG tablet Indications: Acute right ankle pain Take 2 tablets (100 mg) by mouthevery 6 (six) hours if needed for severe pain for up to 5 days 40 tablet 03/27/2024 04/01/2024 ActiveStart: 57-39-3528jttOOZhn (ULTRAM) 50 mg tablet Take by mouth. 06/29/2022 ActiveStart: 62-52-0888pbiwkrvn Oral Start Date: 06/29/22 Status: Ordered Repeat number: 1Start: 69-97-6409jgxpizjb Oral Start Date: 06/29/22 Status: Orderedvancomycin 125 mg oral capsule (2 sources)Glycopeptide AntibacterialStart: 05-23-2024 End: 28-75-4996cvjn 1 capsule by mouth four times dailyvancomycin (VANCOCIN) 125 mg capsule Take 1 capsule by mouth four times daily for 14 days. 56 capsule 05/23/2024 06/06/2024 Active Completed/Discontinued Medications MedicationDrug Class(es)DatesSig (Normalized)Sig (Original)acetaminophen 325 mg / oxyCODONE hydrochloride 5 mg oral tablet (6 sources)Opioid AgonistStart: 06-12-2024 End: 70-39-3483ojcBEGEUW-acetaminophen (Percocet) 5-325 MG tablet Indications: Pain Take 1 tablet by mouth every 6(six) hours if needed for severe pain for up to 5 days TAKE 1 PILL P.O. Q.6H P.R.N. PAIN 15 tablet 06/19/2024 06/25/2024 DiscontinuedALPRAZolam 0.5 mg oral tablet (20 sources)BenzodiazepineStart: 06-19-2024 End: 54-96-2421hfta 1 tablet by mouth in the morningALPRAZolam (Xanax) 0.5 MG tablet Indications: Anxiety , Bipolar disorder, in partial remission, most recent episode manic (CMS/HCC) Take 1 tablet (0.5 mg) by mouth in the morning and in the evening 60 tablet 06/19/2024 07/04/2024 Discontinued (Ineffective) Start: 05-10-2024 End: 38-93-2605hzqh 1 tablet by mouth in the morningALPRAZolam (Xanax) 0.5 MG tablet Indications: Anxiety , Bipolar disorder, in partial remission, most recent episode manic (CMS/HCC) Take 1 tablet (0.5 mg) by mouth in the morning and in the evening 60 tablet 05/10/2024 ActiveStart: 04-08-2024 End: 53-97-1420ehbe 1 tablet by mouth in the morningALPRAZolam (Xanax) 0.5 MG tablet Indications: Anxiety , Bipolar disorder, in partial remission, most recent episode manic (CMS/HCC) Take 1 tablet (0.5 mg) by mouth in the morning and in the evening 60 tablet 04/08/2024 05/08/2024 Discontinued (Reorder)Start: 12-04-2023 End: 17-81-9095iorc 1 tablet by mouth in the morningALPRAZolam (Xanax) 0.5 MG tablet Indications: Anxiety , Bipolar disorder, in partial remission, most recent episode manic (CMS/HCC) Take 1 tablet (0.5 mg) by mouth in the morning and in the evening 60 tablet 01/09/2024 02/08/2024 ActiveStart: 99-67-0471dxka 0.25 mg by mouth twice dailyALPRAZolam (XANAX) 0.5 mg tablet Take 0.25 mg by mouth two times a day. 0 02/18/2019 ActiveStart: 03-75-5014ukem 1 tablet by mouth twice daily as needed for anxietyXanax 0.25 mg Tab 0.25 mg = 1 tab(s), Oral, BID, PRN as needed for anxiety, Refills(s) 0 Start Date: 06/12/18 Status: Ordered Repeat number: 1Comment on above:Take 0.25 mg by mouth twice daily. amoxicillin 875 mg oral tablet (1 source)Penicillin-class AntibacterialStart: 22-51-2786cdfs 1 tablet by mouth every twelve hoursAmoxicillin 875 MG 1 tablet Orally Twice a day for 7 days Apr, Not-Takingbaclofen 10 mg oral tablet (20 sources)gamma-Aminobutyric Acid-ergic AgonistStart: 12-26-2023 End: 06-76-7313yrhh 1 tablet by mouth in the morning, [...] bedtime. 90 tablet 12/26/2023 05/09/2024 Discontinued (Other)Start: 39-58-1453dulkttpx Oral, TID Start Date: 06/29/22 Status: Ordered Repeat number: 1Start: 56-64-1682lfoxqpur Oral, TID Start Date: 06/29/22 Status: OrderedStart: 05-25-2022 End: 81-75-7302sxjtpagt (LIORESAL) 10 mg tablet 05/25/2022 11/02/2022 Discontinuedbenzonatate 100 mg oral capsule (9 sources)Non-narcotic AntitussiveStart: 04-22-2024 End: 48-39-5528gkwq 1 capsule by mouth three times daily [...] oral capsule (8 sources)Vitamin DStart: 02-06-2023 End: 09-59-6189tppf 1 capsule by mouth once in the morningcholecalciferol (Vitamin D-3) 125 MCG (5000 UT) capsule Indications: Vitamin D deficiency Take 1 capsule (125 mcg) by mouth in the morning. 90 capsule 3 02/06/2023 01/22/2024 Discontinuedcitalopram 10 mg oral tablet (20 sources)Serotonin Reuptake InhibitorStart: 08-19-2024 End: 02-35-5242lswx 5 tablets by mouth once dailycitalopram (CeleXA) 10 MG tablet Take 50 mg by mouth Daily 08/19/2024 09/02/2024 Discontinued (Therapy completed)Start: 06-03-4073guju 1 tablet by mouth once dailycitalopram (CeleXA) 10 MG tablet Take 10 mg by mouth Daily 08/19/2024 Activedoxycycline hyclate 100 mg oral capsule (13 sources)Tetracycline-class DrugStart: 03-20-2024 End: 20-18-1779yxfvlsywgjy (Vibramycin) 100 MG capsule Indications: Cystitis Take [...] Agonist, beta-Adrenergic Agonist, Catecholamine Start: 04-18-2023 End: 39-41-7931GMXKABFkeri (Adrenalin) 0.3 MG/0.3ML injection Indications: Anaphylaxis, sequela Inject 0.3 mL (0.3mg) into the shoulder, thigh, or buttocks 1 (one) time for 1 dose 1 each 2 04/18/2023 06/25/2024 DiscontinuedEpiPen prn Activeestrogens, conjugated (care home) 0.625 mg/ml vaginal cream (20 sources)EstrogenStart: 02-06-2024 End: 23-55-1637Wpdmwetis Conjugated (Premarin) 0.625 MG/GM cream Indications: Dyspareunia in female Insert 0.5 Applicatorfuls into the vagina at bedtime 30 g 3 02/06/2024 03/07/2024 ExpiredStart: 05-26-2022 End: 65-83-0039KRKJMJFA vaginal cream 05/26/2022 11/02/2022 DiscontinuedPremarin 0.625 MG/GM as directed Vaginal 3 TIMES A WEEK ActiveEthinyl Estradiol / norgestimate (16 sources)Progestin, EstrogenStart: 03-26-2019 End: 95-78-5744KMWOFIJJ 0.25-35 mg-mcg per tablet 03/26/2019 11/02/2022 DiscontinuedStart: 03-26-2019 End: 75-57-9318OPPCCNUJ 0.25-35 mg-mcg per tabletStart: 93-27-1946UCSOEAXO 0.25- 35 mg-mcg per tabletfurosemide 20 mg oral tablet (20 sources)Loop DiureticStart: 02-06-2024 End: 78-54-8436haoh 1 tablet by mouth once dailyfurosemide (Lasix) 20 MG tablet Indications: Localized edema Take 1 tablet (20 mg) by mouth Daily 30 tablet 02/06/2024 05/09/2024 Discontinued (Other)lisdexamfetamine dimesylate 10 mg oral capsule (19 sources)Central Nervous System Stimulant End: 12-52-6299kgzd 1 capsule by mouth once dailylisdexamfetamine (VYVANSE) 10 mg capsule Take 10 mg by mouth once daily. 12/19/2023 Discontinued (Other)take 1 capsule by mouth every twenty-four hoursVyvanse 50 MG 1 capsule in the morning Orally Once a day ActiveComment on above:Take 10 mg by mouth once daily. LORazepam 1 mg oral tablet (20 sources)BenzodiazepineStart: 08-01-2024 End: 86-72-6560knkj 1 tablet by mouth in the morningLORazepam (Ativan) 1 MG tablet Indications: Anxiety , PTSD (post-traumatic stress disorder) (CMS/HCC) Take 1 tablet (1 mg) by mouth in the morning and in the evening 60 tablet 08/01/2024 09/02/2024 Discontinued (Other)Start: 07-04-2024 End: 57-87-2749jhef 1 tablet by mouth in the morningLORazepam (Ativan) 0.5 MG tablet Indications: Anxiety , PTSD (post-traumatic stress disorder) (CMS/HCC) Take 1 tablet (0.5 mg) by mouth in the morning and in the evening 30 tablet 08/01/2024 09/02/2024 Discontinued (Other)meloxicam 15 mg oral tablet (20 sources)Nonsteroidal Anti-inflammatory DrugStart: 02-21-2024 End: 70-72-0663fwnk 1 tablet by mouth once dailymeloxicam (Mobic) 15 MG tablet Indications: Acute right ankle pain Take 1 tablet (15 mg) by mouth Daily 30 tablet 2 02/21/2024 05/09/2024 Discontinued (Other)50/50 release 24 hr methylphenidate hydrochloride 20 mg extended release oral capsule (16 sources)Central Nervous System StimulantStart: 03-28-2022 End: 28-82-6433mwmh 1 capsule by mouth once daily in the morningmethylphenidate LA (RITALIN LA) 20 mg 24 hr capsule TAKE 1 CAPSULE BY MOUTH EVERY DAY IN THE MORNING FOR 30 DAYS 03/28/2022 11/02/2022 DiscontinuedComment on above:TAKE 1 CAPSULE BY MOUTH EVERY DAY IN THE MORNING FOR 30 DAYSNaproxen (1 source)Nonsteroidal Anti-inflammatory DrugNaproxen Not-Takingondansetron 4 mg disintegrating oral tablet (20 sources)Serotonin-3 Receptor AntagonistStart: 05-27-2024 End: 06-90-6350quwr 1 tablet by mouth every six hours as needed for nausea and vomiting and nausea and nauseaondansetron ODT (Zofran-ODT) 4 MG disintegrating tablet Indications: Nausea Take 1 tablet (4 mg) bymouth every 6 (six) hours if needed for nausea or vomiting 30 tablet 2 05/27/2024 06/26/2024 ExpiredStart: 04-01-2024 End: 10-66-2101tmpq 1 tablet by mouth every six hours as needed for nausea and vomiting and nausea and nauseaondansetron ODT (Zofran-ODT) 4 MG disintegrating tablet Indications: Nausea Take 1 tablet (4 mg) bymouth every 6 (six) hours if needed for nausea or vomiting 30 tablet 2 04/01/2024 05/01/2024 ExpiredStart: 02-28-2023 End: 72-52-7091rswj 1 tablet by mouth every eight hours as neededondansetron (ZOFRAN) 4 mg tablet Take 4 mg by mouth every 8 hours as needed for nausea/vomiting. 02/28/2023 ActiveStart: 08-31-2022 End: mg, INTRAVENOUS, ONCE, 1 dose, On Mon08/31/22 at 1600, Give IV push over 2 minutesStart: 06-30-2022 End: mg, INTRAVENOUS, ONCE, 1 dose, On Kristyn 06/30/22 at 1300, Give IV push over 2 minutesStart: 06-30-2022 End: mg, INTRAVENOUS, ONCE, 1 dose, On Kristyn 06/30/22 at 1230, Give IV push over 2 minutesStart: 02-08-2019 End: 52-26-2408ippf 1 tablet by mouth three times daily as neededondansetron orally disintegrating (ZOFRAN ODT) 8 mg disintegrating tablet DISSOLVE 1 TABLET ON THE TONGUE 3 TIMES A DAY NEEDED 0 02/08/2019 11/02/2022 Discontinued Comment on above:DISSOLVE 1 TABLET ON THE TONGUE 3 TIMES A DAY NEEDED pantoprazole 40 mg delayed release oral tablet (20 sources)Proton Pump InhibitorStart: 07-04-2022 End: 89-56-7542qfbo 1 tablet by mouth twice daily before mealtimepantoprazole DR (PROTONIX) 40 mg tablet Indications: Helicobacter pylori gastritis Take 1 tablet bymouth twice daily before meals for 14 days. 28 tablet 09/01/2022 12/19/2023 Discontinued (Other)Start: 06-30-2022 End: 02-73-5660sing 1 tablet by mouth once dailypantoprazole DR (PROTONIX) 40 mg tablet Take 1 tablet by mouth once daily. 30 tablet 3 06/30/2022 11/02/2022 DiscontinuedComment on above:Take 1 tablet by mouth once daily.Take 1 tablet by mouth twice daily before meals for 10 days.Take 1 tablet by mouth twice daily before meals for 14 days.promethazine hydrochloride 12.5 mg oral tablet (17 sources)PhenothiazineStart: 04-11-2024 End: 16-70-4493vxvm 1 tablet by mouth every six hours as needed for nausea and vomiting and nausea and nauseapromethazine (Phenergan) 12.5 MG tablet Indications: Nausea Take 1 tablet (12.5 mg) by mouth every 6 (six) hours if needed for nausea or vomiting Take 1 tablet by mouth every 6 hours as needed for nausea. 30 tablet 2 04/11/2024 05/09/2024 Discontinued (Other)Start: 12-26-2023 End: 13-65-0467vuon 1 tablet by mouth every six hours for nauseapromethazine (Phenergan) 25 MG tablet Indications: Acute nonintractable headache, unspecified headache type , Nausea and vomiting, unspecified vomiting type Take 1 tablet (25 mg) by mouth every 6 (six) hours if needed for nausea or vomiting for up to 7 days 30 tablet 12/26/2023 01/02/2024 Activeprucalopride 2 mg oral tablet (12 sources)Start: 10-17-2022 End: 83-33-4513snse 1 tablet by mouth once dailyprucalopride 2 mg tablet (MOTEGRITY) Indications: Chronic idiopathic constipation Take 1 tablet (2 mg) by mouth once daily. 30 tablet 6 10/17/2022 12/19/2023 Discontinued (Other)Comment on above:Take 1 tablet (2 mg) by mouth once daily.0.25 mg, 0.5 mg dose 1.5 ml semaglutide 1.34 mg/ml pen injector (20 sources)Start: 06-07-2024 End: 02-21-6606fyohuwrygha (Ozempic) injection 0.25 mgSemaglutide,0.25 or 0.5MG/DOS, (Ozempic, 0.25 or 0.5 MG/DOSE,) 2 MG/3ML solution pen-injector (7 sources)Start: 08-23-2024 End: 14-19-8358Usedrteilrm,0.25 or 0.5MG/DOS, (Ozempic, 0.25 or 0.5 MG/DOSE,) 2 MG/3ML solution pen-injector Indications: Prediabetes , Obesity (BMI 30.0-34.9) , Overweight Inject 0.5 mg under the skin 1 (one) timeper week 3 mL 3 08/23/2024 09/02/2024 Discontinued (Other)Start: 11-87-7738Ahbuhbfxpyb,0.25 or 0.5MG/DOS, (Ozempic, 0.25 or 0.5 MG/DOSE,) 2 MG/3ML solution pen-injector Indications: Prediabetes , Obesity (BMI 30.0-34.9) , Overweight Inject 0.5 mg under the skin 1 (one) timeper week 3 mL 3 08/23/2024 ActiveStart: 89-58-4482Dskbiezpddy,0.25 or 0.5MG/DOS, (Ozempic, 0.25 or 0.5 MG/DOSE,) 2 MG/3ML solution pen-injector Indications: Prediabetes , Obesity (BMI 30.0-34.9) , Overweight Inject 0.5 mg under the skin 1 (one) timeper week 3 mL 3 08/13/2024 Activesucralfate 1000 mg oral tablet (2 sources)Aluminum ComplexStart: 06-30-2022 End: 30-75-5541xgst 1 tablet by mouth twice daily before mealtimesucralfate (CARAFATE) 1 gram tablet Take 1 tablet by mouth twice daily before meals. 60 tablet 06/30/2022 07/30/2022 ExpiredComment on above:Take 1 tablet by mouth twice daily before meals.tenapanor 50 mg oral tablet (8 sources)Start: 11-02-2022 End: 83-11-0450nyso 1 tablet by mouth twice dailytenapanor (IBSRELA) 50 mg tablet Indications: Irritable bowel syndrome with constipation Take 1 tablet (50 mg) by mouth twice daily. 60 tablet 5 11/02/2022 12/19/2023 Discontinued (Other) Comment on above:Take 1 tablet (50 mg) by mouth twice daily. Problems Active Problems Problem ClassificationProblemDateDocumented DateEpisodic/ChronicAbdominal pain (18 sources)Right sided abdominal pain; Translations: [Unspecified abdominal pain]Onset: 23-38-2611OkfznvpnQyqpmsjg foot deformities (5 sources)Left foot drop; Translations: [Foot drop, left foot]02-12-2025 EpisodicAcute bronchitis (2 sources)Acute bronchitis; Translations: [Acute bronchitis, unspecified] 11-21-6647HoqdukubTxmipor-related disorders (20 sources)Alcohol withdrawal delirium; Translations: [Alcohol withdrawal delirium]Onset: 819404-20-9086OteooqgKkiz and rectal conditions (2 sources)Rectal pain; Translations: [Other specified diseases of anus and rectum]58-99-1323WieegpwpHgdmksl disorders (20 sources)Anxiety disorder, unspecified; Translations: [Anxiety]Onset: 365260-45-8147RyvpdleUewtmo (20 sources)Exercise induced bronchospasm; Translations: [Exercise induced bronchospasm]Onset: 163590-88-5553SkiqjroSqnwyxwug-srjtodw, conduct, and disruptive behavior disorders (20 sources)Attention deficit hyperactivity disorder, predominantly inattentive type; Translations: [Attention-deficit hyperactivity disorder, predominantly inattentive type]Onset: 105734-65-8917FvuepepOpkvqnmto infection; unspecified site (1 source)Helicobacter pylori [H. pylori] as the cause of diseases classified elsewhere; Translations: [Helicobacter pylori gastritis]Onset: 02-25-2025 EpisodicCoronary atherosclerosis and other heart disease (20 sources)Atherosclerosis of coronary artery without angina pectoris; Translations: [Atherosclerotic heart disease of [place] coronary artery without angina pectoris]Onset: 648312-93-3730UqhgggiOzzailod mellitus without complication (20 sources)Type 2 diabetes mellitus; Translations: [Type 2 diabetes mellitus without complications]Onset: 858089-66-8161SnlqrouHfaiambo mellitus without complication (20 sources)Hyperglycemia; Translations: [Hyperglycemia, unspecified]Onset: 181959-18-6156WwkgjilfZzscukpth of lipid metabolism (20 sources)Hypercholesterolemia; Translations: [Pure hypercholesterolemia, unspecified]Onset: 511914-66-6236NmifsgbJrsgxruwnnexsa and diverticulitis (20 sources)Diverticulosis of colon; Translations: [Diverticulosis of large intestine without perforation or abscess without bleeding]Onset: 09-23-2022 Resolved: 490089-13-9126VrdjjqyC Codes: Fall (1 source)Fall in homeOnset: 419838-81-8692Zzweglmguvwvp (1 source)Endometriosis (clinical); Translations: [Other endometriosis] 90-09-0666LbxlzprPmsbxtwd; convulsions (20 sources)Idiopathic generalized epilepsy; Translations: [Generalized idiopathic epilepsy and epileptic syndromes, not intractable, without status epilepticus]Onset: 604779-47-5156UcmnbceJotiulypyk disorders (20 sources)Gastroesophageal reflux disease without esophagitis; Translations: [Gastro-esophageal reflux disease without esophagitis]Onset: 07-09-2019 46-96-6796DfmozvrEopegzmofp disorders (1 source)Esophagitis; Translations: [Esophagitis]Onset: 77-77-2638Gqqyoeuw Essential hypertension (20 sources)Hypertensive disorder; Translations: [Essential (primary) hypertension]Onset: 645413-41-1762RqnzrjmVcvvs and electrolyte disorders (4 sources)Hypokalemia; Translations: [Hypokalemia]31-32-0407AxsejjgkEeswxqxhm and duodenitis (1 source)Gastritis, unspecified, without bleeding; Translations: [Helicobacter pylori gastritis]Onset: 46-91-2926OlrnmvpfVjmugiapbmuicz ulcer (except hemorrhage) (2 sources)Peptic ulcer; Translations: [Peptic ulcer, site unspecified, unspecified as acute or chronic, without hemorrhage or perforation]08-31-2022 ChronicGenitourinary symptoms and ill-defined conditions (3 sources)Genuine stress incontinence; Translations: [Stress incontinence (female) (male)]Onset: 704615-01-2275TraogsnVbetpfcy; including migraine (20 sources)Tension-type headache; Translations: [Tension-type headache, unspecified, not intractable]Onset: 09-23-2022 Resolved: 172348-18-3405CxbndcuCxwmodtelik (2 sources)Hemorrhoids; Translations: [Unspecified hemorrhoids]10-01-2024 EpisodicHepatitis (20 sources)Nonalcoholic steatohepatitis; Translations: [Nonalcoholic steatohepatitis (ENGLISH)]Onset: 51-89-0862WigtriyXuuwgscldxqpw and screening for infectious disease (5 sources)Encounter for screening for human papillomavirus (HPV); Translations: [Encounter for screening for infections with a predominantly sexual mode of transmission]Onset: 13-72-3623UbknuxogTauiquf control disorders, NEC (20 sources)Trichotillomania; 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]Onset: 07-04-2024 44-02-1478OaqixywWsoqcxacexhw diseases of female pelvic organs (1 source)Bacterial vaginosis; Translations: [Acute vaginitis]15-73-3836Lgsqbvti Malaise and fatigue (2 sources)Fatigue; Translations: [Other fatigue]97-02-9414HqkldeofSokuxxxzkkjjq mental health disorders (20 sources)Hypersexuality state; Translations: [Other sexual dysfunction not due to a substance or known physiological condition]Onset: 987912-05-4156 ChronicMood disorders (20 sources)Major depressive disorder, single episode, unspecified; Translations: [Bipolar disorder, most recent episode manic]Onset: 10-22-2021 63-53-8186TbprfooBmjdnq and vomiting (9 sources)Bilious vomiting; Translations: [Bilious vomiting]EpisodicNonspecific chest pain (20 sources)Chest pain; Translations: [Chest pain, unspecified]Onset: 01-06-2025 34-84-7082CsjgldinOsrbpvwtnit deficiencies (20 sources)Vitamin D deficiency; Translations: [Vitamin D deficiency, unspecified]Onset: 276027-85-4044SyuayygMufwubxsz or stenosis of precerebral arteries (20 sources)Bilateral atherosclerosis of carotid arteries; Translations: [Occlusion and stenosis of bilateral carotid arteries]Onset: 11-16-2020 08-95-3381YraowlvCnrbfkbccmhpio (20 sources)Osteoarthritis of knee; Translations: [Osteoarthritis of knee, unspecified]Onset: 455381-20-2323YqkdumhIuadk acquired deformities (4 sources)Contracture of joint of right ankle; Translations: [Contracture, right ankle]94-74-2811BpakljtGirko aftercare (3 sources)Surgical follow-up; Translations: [Encounter for follow-up examination after completed treatment for conditions other than malignant neoplasm]73-29-6308RdkwgtpqRyhth bone disease and musculoskeletal deformities (4 sources)Osteochondritis dissecans of right ankle; Translations: [Osteochondritis dissecans, right ankle andjoints of right foot]05-08-2024 ChronicOther connective tissue disease (7 sources)Pain in right foot; Translations: [Pain in right foot]05-15-2024 EpisodicOther connective tissue disease (8 sources)Spasm; Translations: [Other muscle spasm]Onset: EpisodicOther connective tissue disease (7 sources)Synovitis and tenosynovitis; Translations: [Other synovitis and tenosynovitis, right ankle and foot]78-37-2993VkfbylotRnuay connective tissue disease (6 sources)Enthesopathy of lower limb; Translations: [Other enthesopathy of right foot and ankle]26-86-5821MqiocnakVggof connective tissue disease (3 sources)Other specified disorders of muscle; Translations: [Pelvic floor dysfunction]Onset: 33-62-0027OkejclpeBduwi female genital disorders (4 sources)Unspecified dyspareunia; Translations: [UNSPECIFIED DYSPAREUNIA] Onset: 19-88-3338IjxqcniHmaeo female genital disorders (5 sources)Pain in female genitalia on intercourse; Translations: [Unspecified dyspareunia]88-14-9818QizsjjmKxdui female genital disorders (6 sources)Dyspareunia; Translations: [Other specified dyspareunia]07-10-2024 ChronicOther female genital disorders (2 sources)Vulvodynia; Translations: [Vulvodynia, unspecified]38-28-1611Uvykjxn Other female genital disorders (1 source)Vulvodynia, unspecified; Translations: [Vulvodynia]Onset: 12-30-2024 ChronicOther female genital disorders (1 source)Other specified dyspareunia; Translations: [Other specified dyspareunia]Onset: 30-37-6759ZeqliarBtehy female genital disorders (1 source)H/O: dyspareunia; Translations: [Personal history of other diseases of the female genital tract]90-31-1560QkagncmjSqshp female genital disorders (2 sources)Vaginal dryness; Translations: [Other specified noninflammatory disorders of vagina]30-22-6872OtpshtxzEbdru female genital disorders (1 source)Other specified noninflammatory disorders of vagina; Translations: [Vaginal dryness]Onset: 95-18-2816LojigiehWstgr gastrointestinal disorders (20 sources)Irritable bowel syndrome characterized by constipation; Translations: [Irritable bowel syndrome with constipation]Onset: 09-23-2022 04-23-0077LqgjldsWkwvt gastrointestinal disorders (1 source)Chronic idiopathic constipation; Translations: [Chronic idiopathic constipation]99-50-6958JhihjxuMpric gastrointestinal disorders (1 source)Irritable bowel syndrome with constipation; Translations: [Irritable bowel syndrome with constipation]Onset: 22-42-0779JetcwaqXgyni gastrointestinal disorders (1 source)Chronic idiopathic constipation; Translations: [Chronic idiopathic constipation]Onset: 69-31-9558GxuncucJbzdi gastrointestinal disorders (1 source)History of diverticulitis; Translations: [Personal history of other diseases of the digestive system]EpisodicOther gastrointestinal disorders (15 sources)Chronic constipation; Translations: [Other constipation]Onset: 619359-70-9260YwjhryqjBajdn injuries and conditions due to external causes (1 source)Unspecified foreign body in larynx causing other injury, initial encounter; Translations: [Choking,initial encounter]Onset: 37-96-3044Urbjmaob Other liver diseases (1 source)Steatosis of liver; Translations: [Fatty (change of) liver, not elsewhere classified]ChronicOther liver diseases (2 sources)Lesion of liver; Translations: [Liver disease, unspecified]Chronic Other liver diseases (1 source)Liver cyst; Translations: [Other specified diseases of liver]Chronic Other liver diseases (1 source)Other specified diseases of liverChronicOther liver diseases (2 sources)Fatty (change of) liver, not elsewhere classified; Translations: [Metabolic dysfunction-associated steatotic liver disease (MASLD)]Onset: 44-95-8193VldgormEqoga liver diseases (5 sources)Abnormal levels of other serum enzymes; Translations: [ABNORMAL LEVELS OTHER SERUM ENZYMES]Onset: 90-18-5429ZnaismszXobov lower respiratory disease (2 sources)Dyspnea; Translations: [Shortness of breath]EpisodicOther nervous system disorders (20 sources)Poor concentration; Translations: [Attention and concentration deficit]Onset: 935752-81-6657OgnmwsgXaqbf nervous system disorders (2 sources)Chronic pain; Translations: [Other chronic pain]12-32-2676Ewiiokh Other nervous system disorders (1 source)Other chronic pain; Translations: [Chronic pelvic pain in female] Onset: 98-26-7218FiogejpCmgwg nervous system disorders (4 sources)Paresthesia of upper limb; Translations: [Anesthesia of skin] 41-73-4656QygwwtlkCfxqx nervous system disorders (4 sources)Facial paresthesia; Translations: [Anesthesia of skin]10-08-2024 EpisodicOther nervous system disorders (6 sources)Numbness and tingling sensation of skin; Translations: [Anesthesia of skin]78-45-3280MnqkffrbFxydw non-traumatic joint disorders (1 source)Acute ankle pain; Translations: [Pain in right ankle and joints of right foot]69-50-1863XvxrmvzaAccwz non-traumatic joint disorders (2 sources)Pain in left shoulder; Translations: [Pain in joint, shoulder region] 91-17-9166KlizqqqyPbzku non-traumatic joint disorders (11 sources)Instability of joint of right ankle; Translations: [Other instability, right ankle]99-06-4524BlhtorqeUlbij nutritional; endocrine; and metabolic disorders (20 sources)Disorder of carbohydrate metabolism; Translations: [Other disorders of intestinal carbohydrate absorption]Onset: 569424-52-6972GhdpholOgmku nutritional; endocrine; and metabolic disorders (20 sources)Body mass index 30+ - obesity; Translations: [Obesity, unspecified] Onset: 137702-10-1773HtnkzijUuoxt nutritional; endocrine; and metabolic disorders (20 sources)Nephrocalcinosis; Translations: [Other disorders of calcium metabolism]Onset: 416840-12-7225ZjbuuinCrrxw nutritional; endocrine; and metabolic disorders (20 sources)Obesity caused by energy imbalance; Translations: [Morbid (severe) obesity due to excess calories]Onset: 513157-06-7493NvdyuiwOyxww nutritional; endocrine; and metabolic disorders (20 sources)Obese class II; Translations: [Obesity, class 2]Onset: 12-16-2024 89-12-4993QzvifazSnbbqxb cyst (20 sources)Other ovarian cyst, unspecified side; Translations: [Unspecified ovarian cyst, right side]Onset: 95-99-4051IhmicysoFqvoydlijx and visceral atherosclerosis (20 sources)Atherosclerosis of aorta; Translations: [Atherosclerosis of aorta] Onset: 009562-54-9048FvymkpbGkozjzxypvc; intervertebral disc disorders; other back problems (20 sources)Inflammation of sacroiliac joint; Translations: [Sacroiliitis, not elsewhere classified]Onset: 171547-31-2641XaybhjnCjvlobmxtqy; intervertebral disc disorders; other back problems (20 sources)Cervical radiculopathy; Translations: [Radiculopathy, cervical region]Onset: 09-23-2022 Resolved: 024780-14-4553OeurvojaBinkvrvuj-vcctctl disorders (1 source)Drug-induced udwelwsjh12-26-5143NrsxxrjdWlotgzuwxph injury; contusion (2 sources)Contusion of right ankle; Translations: [Contusion of right ankle, initial encounter]03-96-0721VcitpebfOykabvw disorders (20 sources)Goiter; Translations: [Nontoxic goiter, unspecified]Onset: 510531-53-7030LgqjqlzDtawgfiutzgu (3 sources)LOW BACK PAIN, UNSPECIFIED; Translations: [LOW BACK PAIN, UNSPECIFIED]Onset: 49-35-9196Xrwylpyujylt (20 sources)Patient on antidepressant monitoring planOnset: 794394-64-1111 Unclassified (20 sources)Baseline PHQ-9Onset: 745558-47-1012Tyrespzswapa (1 source)History of BXLS-HqJ-7Qmpjf: 240948-89-3841Wtxburefassp (1 source)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Onset: 07-24-101157211183-78-6727Trfqxprfrlcc (1 source)Sprain of talofibular ligament of right -32-4048Wsjjnrarxwip (1 source)Surgical wound findingOnset: 151437-69-8050 Past or Other Problems Problem ClassificationProblemDateDocumented DateEpisodic/ChronicAlcohol-related disorders (20 sources)Alcohol use, unspecified with alcohol-induced psychotic disorder, unspecified; Translations: [Unspecified alcohol-induced mental disorders]Onset: 536652-24-2666RnwfisyeMvddwwnw reactions (20 sources)Anaphylaxis; Translations: [Anaphylactic shock, unspecified, initial encounter]Onset: 193629-08-4654XlphhbyjGmxmbtf tract disease (20 sources)Cholelithiasis without obstruction; Translations: [Calculus of gallbladder without cholecystitis without obstruction]Onset: 03-23-2023 70-23-8180JeifmkvvLtqqrqgx of urinary tract (20 sources)Kidney stone; Translations: [Calculus of kidney]Onset: 06-30-2022 16-57-2622BlgylpqnDinyygf dysrhythmias (20 sources)Palpitations; Translations: [Palpitations]Onset: 08-13-2024 69-35-0132OuelkymaDdasxevqqdhzx of surgical procedures or medical care (20 sources)Surgical wound finding; Translations: [Disruption of external operation (surgical) wound, not elsewhere classified, sequela]Onset: 09-25-2024 15-97-4896ZhftvxdwYdfwepjteh associated with dizziness or vertigo (20 sources)Dizziness; Translations: [Dizziness and giddiness]Onset: 12-13-2022 52-83-2512QkamvwuzN Codes: Fall (20 sources)Unspecified fall, initial encounter; Translations: [Fall in home] Onset: 690605-37-0399BgqcvfzdLtliwaqjglpoiigj hemorrhage (3 sources)Gastrointestinal hemorrhage; Translations: [Hemorrhage of anus and rectum]Onset: 564594-25-5223QflpilndXcqudasutbqcb symptoms and ill-defined conditions (20 sources)Dysuria; Translations: [Increased frequency of urination]Onset: 12-12-2022 Resolved: 603358-52-5962HvuvmjrlQiueuimp; including migraine (20 sources)Acute headache; Translations: [Acute nonintractable headache]Onset: 286975-65-7470CqylutfaDohg disorders (20 sources)Mood swings; Translations: [Emotional lability]Onset: 09-23-2022 42-46-7486BnxmfyjvNwex disorders (20 sources)Mood disordersOnset: 10-08-2024 Resolved: 559993-31-4326Vwomixg (20 sources)Dermatophytosis; Translations: [Dermatophytosis, unspecified]Onset: 889736-08-2118NmttublaCrvd wounds of extremities (20 sources)Laceration of right knee; Translations: [Laceration without foreign body, right knee, subsequent encounter]Onset: 09-10-2024 Resolved: 290525-30-7843WlhzfqhcMmdy wounds of extremities (20 sources)Laceration of left knee; Translations: [Laceration without foreign body, left knee, sequela]Onset: 09-10-2024 Resolved: 554596-52-6229DvyzvjaqBmgzk aftercare (20 sources)Postoperative visit; Translations: [Encounter for other specified surgical aftercare]Onset: 04-18-2023 Resolved: 159667-61-7735AqlqlyohSxjdi circulatory disease (20 sources)Elevated blood pressure; Translations: [Elevated blood-pressure reading, without diagnosis of hypertension]Onset: 511943-41-1965Qsfqpljn Other connective tissue disease (20 sources)Pelvic floor dysfunction; Translations: [Other specified disorders of muscle]Onset: 393915-52-5003KiauufbmJfhwe connective tissue disease (1 source)Other muscle spasm; Translations: [Muscle spasm]Onset: 10-11-2024 EpisodicOther disorders of stomach and duodenum (20 sources)Gastroparesis syndrome; Translations: [Gastroparesis]Onset: 54-14-1895IhwndohmAebrm disorders of stomach and duodenum (1 source)Gastroparesis; Translations: [Gastroparesis]Onset: 98-81-4249Rfhdgkco Other gastrointestinal disorders (20 sources)Dysphagia; Translations: [Dysphagia, unspecified]Onset: 09-23-2022 73-16-3149AmnncmwhHmsxw gastrointestinal disorders (20 sources)History of pancreatitis; Translations: [Personal history of other diseases of the digestive system]Onset: 472001-78-4685LcrfcxnbFtfmh gastrointestinal disorders (2 sources)Other constipation; Translations: [Chronic constipation]Onset: 68-89-1910MteivfseEwcpz infections; including parasitic (20 sources)Personal history of other infectious and parasitic diseases; Translations: [History of COVID-19]Onset: 954845-63-7554LqwyoonkSbtzj injuries and conditions due to external causes (20 sources)Injury of right ankle; Translations: [Unspecified injury of right ankle, subsequent encounter]Onset: 02-06-2024 Resolved: 371443-56-8230XkztkuywVdynh liver diseases (20 sources)Elevated liver enzymes level; Translations: [Abnormal levels of other serum enzymes]Onset: 789765-31-6691OzomrupdWwivm lower respiratory disease (20 sources)Cough; Translations: [Cough]Onset: 411576-42-7178TbagkllbTzgov lower respiratory disease (20 sources)Snoring; Translations: [Snoring]Onset: 958168-24-2799Jrwfuagj Other nervous system disorders (20 sources)Involuntary movement; Translations: [Unspecified abnormal involuntary movements]Onset: 208019-58-1246JdercbafWxdqv nervous system disorders (20 sources)Pain of skin; Translations: [Other disturbances of skin sensation] Onset: 479850-64-7676ZlligfkqTerzm nervous system disorders (20 sources)Tremor; Translations: [Tremor, unspecified]Onset: 09-23-2022 82-52-6773IaaguimxKoklj non-traumatic joint disorders (20 sources)Shoulder pain; Translations: [Pain in left shoulder]Onset: 592775-06-5997ErqyggcdHieni nutritional; endocrine; and metabolic disorders (20 sources)Obese class I; Translations: [Obesity (BMI 30.0-34.9)]Onset: 09-23-2022 Resolved: 326634-05-1757VkmgacxAuuyo nutritional; endocrine; and metabolic disorders (20 sources)Overweight; Translations: [Overweight]Onset: EpisodicOther nutritional; endocrine; and metabolic disorders (20 sources)Weight increased; Translations: [Abnormal weight gain]Onset: 988570-61-2565KqyomyuoNzble nutritional; endocrine; and metabolic disorders (4 sources)Weight gain; Translations: [Abnormal weight gain]Onset: 10-03-2023 77-33-3001GdtsvumzCxrhm screening for suspected conditions (not mental disorders or infectious disease) (20 sources)Ultrasound scan abnormal; Translations: [Abnormal findings on diagnostic imaging of other specifiedbody structures]Onset: 09-23-2022 Resolved: 32-33-2458BosxwpzFojsu screening for suspected conditions (not mental disorders or infectious disease) (20 sources)Encounter for screening for malignant neoplasm of cervix; Translations: [Other specified abnormal findings of blood chemistry]Onset: 89-54-5133XkozpndsGfior skin disorders (20 sources)Vesicular eczema; Translations: [Dyshidrosis [pompholyx]]Onset: 161009-67-3421TlepwrcgUbkno upper respiratory infections (20 sources)Maxillary sinusitis; Translations: [Chronic maxillary sinusitis] Onset: 09-23-2022 Resolved: 675957-65-1651AnjldvhFagdusqmnc disorders (not diabetes) (20 sources)Biliary acute pancreatitis without necrosis or infection; Translations: [Acute pancreatitis withoutnecrosis or infection, unspecified] Onset: 745987-68-9358IepvxpbeAacpkoer codes; unclassified (1 source)Acquired absence of both cervix and uterus; Translations: [ACQUIRED ABSENCE BOTH CERVIX AND UTERUS]Onset: 34-60-8334XnuujrhjHhwreupy codes; unclassified (20 sources)Insomnia; Translations: [Insomnia, unspecified]Onset: 09-23-2022 11-18-9817RvasizviYopfwqgx codes; unclassified (20 sources)Localized edema; Translations: [Localized edema]Onset: 02-06-2024 05-50-0150BoyjffsgVssqtcb and strains (20 sources)Sprain of talofibular ligament of right ankle; Translations: [Sprain of other ligament of right ankle, initial encounter]Onset: 04-01-2024 Resolved: 257187-78-8349KmubaehsKvukfarwj-pukuqxr disorders (20 sources)Smoker; Translations: [Nicotine dependence]Onset: 09-23-2022 Resolved: 841919-95-7904WictsaxNupsbpv on above:Added secondary to documentation in Social History.Syncope (5 sources)Syncope and collapse; Translations: [Syncope and collapse]Onset: 052618-14-4952HkclqjpmHnohmfjxvnrx (1 source)LOW BACK PAIN, UNSPECIFIED; Translations: [LOW BACK PAIN, UNSPECIFIED] Onset: 43-63-6061Fpamkiisjrwn (2 sources)Injury of right vihpo12-61-1227Nkxnklbeljfo (2 sources)Acute pain of left rlyiourl60-84-5566Itlgwlr tract infections (20 sources)Recurrent urinary tract infection; Translations: [Urinary tract infectious disease]Onset: 06-29-2022 Resolved: 209011-65-2460CqdploduWffht infection (20 sources)COVID-19; Translations: [Other specified viral infection]Onset: 11-30-2022 Resolved: 962456-83-5269Ogklsubn Results Test NameValueInterpretationReference RangeFacilityUrinalysis macro (dipstick) panel (U)on 41-78-0261Srmukiimi, UANegativeNegative - 4(70) +++ mg/dLNOMS HealthcareBlood, UANegativeNegative - 50 Edgard/mcLNOMS HealthcareClarity, UACloudy NOMS HealthcareColor, UAYellowNOMS HealthcareGlucose, UA2+Negative - 2000(110) ++++ mg/dLNOMS HealthcareInterpretation and review of laboratory resultsAbnormal NOMS HealthcareKetones, UANegativeNegative - 160(16) ++++ mg/dLNOMS Healthcare Leukocytes, UA1+Negative - 500+++ Giana/mcLNOMS HealthcareNitrite, UANegative Negative - PositiveNOMS HealthcarepH, UA6.05 - 9NOMS HealthcareProtein, UA NegativeNegative - 1999(20) ++++ mg/dLNOMS HealthcareSpec Grav, UA1.0151 - 1.03 NOMS HealthcareUrobilinogen, UA1.00.2 - 12 mg/dLNOMS HealthcareNOMS Healthcare ANES POSTPROC EVALon 22-78-2370NLWM POSTPROC EVALHNO ID: [id number] Author: JOEL PRYOR APRN.WEBSPHERE COMMERCE CONSULTANT Service: Anesthesiology Author Type: Nurse Washing Machine Loader And Puller Type: Anesthesia Postprocedure Evaluation Filed: 02/25/2025 13:52 [...] Winn MD; Lindsey Buckley RN; Joel Pryor APRN.CRNA Responsible Provider: Joel Pryor APRN.CRNA Anesthesia Type: [...] Anesthesia Observations No Documentation SIGNATURE: Joel Pryor APRN.WEBSPHERE COMMERCE CONSULTANT PATIENT NAME: Orion Harper DATE: February 25, 2025 TIME: 1:52 PM CSN: [id number]s [facility] PRE-OPon 23-93-6094POUT PRE-OPHNO ID: [id number] Author: JOEL PRYOR APRN.WEBSPHERE COMMERCE CONSULTANT Service: Anesthesiology Author Type: Nurse Washing Machine Loader And Puller Type: Anesthesia Preprocedure Evaluation Filed: 02/25/2025 13:25 Note Text: ANESTHESIOLOGY DAY OF SURGERY NOTE : 1990 Procedure Information Date/Time: 02/25/25 1300 Scheduled providers: Carol Winn MD; Lindsey Buckley RN; Joel Pryor APRN.WEBSPHERE COMMERCE CONSULTANT Procedure: EGD - THERAPEUTIC, EUS, OR TUBE [...] February 25, 2025 TIME: 1:24 PM CSN: [id number] McCullough-Hyde Memorial HospitalCYTOLOGY NON-GYNon [id number] DISCLAIMERNormMercy Health [facility] on above:Order Comment: Specimen Type: BRONCHIAL BRUSHINGS SPECIMENOrdering Facility: [facility] Address: [address] [place], [place] [address]Result Comment: Laboratory Developed Test (LDT) Disclaimer: Performance characteristics of immunohistochemical, immunofluorescent, and chromogenic in-situ hybridization tests have been determined by the performing laboratory within the [facility] Department of Pathology and Laboratory Medicine ([facility], [facility], [facility], [facility], [facility], [facility], or [facility]) in a manner consistent with CLIA requirements. One or more of these tests may not have been cleared or approved by the FDA. The [facility] Department of Pathology and Laboratory Medicineis regulated under CLIA as qualified to perform high-complexity testing. These tests are used for clinical purposes. These should not be regarded as investigational or for research. Positive and negative controls stain appropriately.Performed By: #### CYTONON ####[facility] LABCLIA [id number] [address]CASE REPORTNoTriHealth McCullough-Hyde Memorial HospitalComascension [facility] on above:Order Comment: Specimen Type: BRONCHIAL BRUSHINGS SPECIMENOrdering Facility: [facility] Address: [address] [place], [place] [address]Result Comment: Medical Cytology Report Case: [id number] Authorizing Provider: Carol Winn MD Collected: 02/25/2025 01:32 PM Ordering Location: Ambulatory Surgery Received: 02/26/2025 03:51 AM Pathologist: George Ware MD Specimen: Esophagus, r/o candidaPerformed By: #### CYTONON ####[facility] LABCLIA [id number] [address] STATES OF [facility]ITALCLINICAL GKUZYTTJ94.308A - Choking, initial encounter [ICD-10-CM] K21.9 - Gastroesophageal reflux disease, unspecified whether esophagitis present [ICD-10-CM] K29.70, B96.81 - Helicobacter pylori gastritis [ICD-10-CM] K31.84 - Gastroparesis [ICD-10-CM][facility] on above:Order Comment: Specimen Type: BRONCHIAL BRUSHINGS SPECIMENOrdering Facility: [facility] Address: [address] [place], [place] [address]Performed By: #### CYTONON ####[facility] LABCLIA [id number] [address]ETFINAL DIAGNOSISNormalCOhioHealth Doctors Hospital on above:Order Comment: Specimen Type: BRONCHIAL BRUSHINGS SPECIMENOrdering Facility: [facility] Address: [address] [place], [place] [address]Result Comment: A - Esophagus, [place] - r/o melissa Negative for malignant cells. No fungal elements seen. at 1603 EST Performed By: #### CYTONON ####[facility] LABCLIA [id number] [address]ETFINPA PERFORMING LAB [facility] on above:Order Comment: Specimen Type: BRONCHIAL BRUSHINGS SPECIMENOrdering Facility: [facility] Address: [address] [place], [place] [address]Result Comment: Technical component, raftsman screening performed at: [facility], [address] [place], [place] [id number] CLIA: [id number] Diagnostic interpretation performed at: [facility], [address] [place] [address] [id number] CLIA# [id number] Charge Coordinator: DULCE Nelsonerformed By: #### CYTONON ####[facility] LABCLIA [id number] [place] [id number] [facility] HOSPITALGROSS DESCRIPTIONA. EsophagusNormalCCleveland Clinic [facility] Comment on above:Order Comment: Specimen Type: BRONCHIAL BRUSHINGS SPECIMENOrdering Facility: [facility] Address: [address] [place] [place] [address]Result Comment: 20 cc clear colorless fluid with brush with particles. ThinPrep prepared.Performed By: #### CYTONON ####[facility] LABCLIA [id number] [place] [id number] [facility] HOSPITALHISTORY PHYSICALon 80-09-5876CSYHCMZ PHYSICALHNO ID: [id number] Author: CAROL WINN MD Service: Gastroenterology Author [...] Harper DATE: February 25, 2025 TIME: 1:25 PMNMercy Health PROGo 29-94-0548ELFXMZX PROGHNO ID: [id number] Author: BENITO RIBERA RN Service: Nursing Author [...] Benito Ribera RN In Department: AMBULATORY SURGERY [facility] ID: [id number] Author: ELISSA NAPOLES RN Service: Nursing Author [...] AFFECTING LEARNING: None Electronically Signed By: Elissa Napoels RN In Department: AMBULATORY SURGERY [facility] GI endoscopyon [id number] GI endoscopyKittitas Valley Healthcare Gastroenterology Gastrointestinal Endoscopy Patient Name: Orion Harper Procedure Date: 02/25/2025 1:26 PM Date of : 1990 Admit Type: Outpatient Age: 34 Room: [place] [address] Gender: Female Note Status: Finalized Attending MD: Carol Winn MD, [id number] Procedure: Upper GI endoscopy Indications: Dysphagia, choking [...] verified by the physician, the nurse, the guest relations manager and the veterinary laboratory technician in the procedure room. Mental [...] home (ambulatory). Procedure Code(s): --- Professional --- 80469, Esophagogastroduodenoscopy, flexible, transoral; diagnostic, including collection of specimen(s) by brushing or washing, when performed (separate procedure) Diagnosis Code(s): --- Professional --- K21.00, Gastro-esophageal reflux disease with esophagitis, without bleeding K31.84, Gastroparesis R13.10, Dysphagia, unspecified CPT copyright 2020 [employer]. All rights reserved. The codes documented in this report are preliminary and upon corpsman review may be revised to meet current compliance requirements. Scope In: 1:29:08 PM Scope Out: 1:31:54 PM Carol Winn MD 02/25/2025 1:41:26 PM This report has been signed electronically by Carol Winn MD Number of Addenda: 0 Note Initiated On: 02/25/2025 1:26 PM Estimated Blood Loss: Estimated blood loss: none.NormalTrinity Health SystemNOKLAHOMA SURGICAL [facility] – TULSAon 02-18-2025 [facility]ALEURSENurse Visit (TANI) ORION HARPER ([id number]) 1990 F Date Time Provider Department 02/18/25 3:30 PM NURSE LYN NORTH BILL FREIRE During your visit today, we recorded the following information about you: Referring Provider: CAROL WINN [[id number]] Allergies As of Date: 02/18/2025 Noted Allergy [...] TEST FOR HELICOBACTER PYLORI [SQHPYLBR] Order #: [id number] Prescriptions as of 02/20/2025 - clonazePAM (KLONOPIN) [...] 10/11/2024 Encounter Status:Closed by СВЕТЛАНА AGOSTO on 02/20/25[facility] [id number] Visit (TANI) ORION HARPER ([id number]) 1990 F Date Time Provider Department 02/17/25 [...] normal. She was referred to a female shoe associate and was recommended IBSRELA, which she did not start due to insurance issues. Capsule endoscopy was also recommended but not completed due to cost. Laparoscopy by her home health manager ruled out endometriosis. 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 FibroScan in April showed minimal scarring and S2 steatotic changes. She reports social alcohol use on weekends or every other weekend. She has been biking 16 miles a day, but continues to gain weight. She is enrolled in the [employer] program through her employer, which provides a [...] colon, splenic flexu (more content not included)...Normal [facility]in Memorial HospitalHepatic function 1999 panelon 84-34-2617Wtbaaux [Mass/Vol]4.4 g/dLNormal3.9-4.9Avon HospitalComment on above:Order Comment: Specimen Type: BLOOD SPECIMEN Ordering Facility: [facility] Address: [address] [place] [address] [place], [place] [address]Ddjqsxnpn By: #### 00324-1 #### [facility] CLIA [id number] [address] [place] [address] [place] AMERICAALP [Catalytic activity/Vol]130 U/LHigh 34-123Avon HospitalComment on above:Order Comment: Specimen Type: BLOOD SPECIMEN Ordering Facility: [facility] Address: [address] [place], [place] [address]Performed By: #### 03727-7 #### [facility] CLIA [id number] [address] [place] [address] [place] AMERICAALT [Catalytic activity/Vol]57 U/LHigh 7-38Avon HospitalComment on above:Order Comment: Specimen Type: BLOOD SPECIMEN Ordering Facility: [facility] Address: [address] [place], [place] [address]Performed By: #### 65296-6 #### [facility] [place] [id number] [address] [place] [address] [place] AMERICAAST [Catalytic activity/Vol]35 U/LNormal 13-35Avon HospitalComment on above:Order Comment: Specimen Type: BLOOD SPECIMEN Ordering Facility: [facility] Address: [address] [place], [place] [address]Performed By: #### 99819-6 #### [facility] [place] [id number] [address] [place] [address] [place] AMERICABilirubin [Mass/Vol]0.2 mg/dLNormal 0.2-1.3Avon HospitalComment on above:Order Comment: Specimen Type: BLOOD SPECIMEN Ordering Facility: [facility] Address: [address] [place], [place] [address]Performed By: #### 23339-8 #### [facility] IA [id number] [address] [place] [address] [place] AMERICABilirubin.conjugated [Mass/Vol]0.1 mg/dL Normal<0.3Avon HospitalComment on above:Order Comment: Specimen Type: BLOOD SPECIMEN Ordering Facility: [facility] Address: [address] [place] [address], [place] [address]Zawfxtzkc By: #### 22310-9 #### [facility] CLIA [id number] [address] [place] [address] [place] [facility] HOSPITALProtein [Mass/Vol]7.3 g/dLNormal6.3-8.0 [facility] HospitalComment on above:Order Comment: Specimen Type: BLOOD SPECIMEN Ordering Facility: [facility] Address: [address] [place], [place] [address]Performed By: #### 09578-5 #### [facility] CLIA [id number] [address] [place] [address] [place] OF [facility]ENS HOSPITALALL LIPID PROFILE (FASTING)on 02-06-2025 CHOL HDL RATIO2.8NOAZ HealthcareComment on above:3.3 - 4.4 LOW RISK 4.4 - 7.1 AVERAGE RISK 7.1 - 11.0 MODERATE RISK >11.0 HIGH RISK Cholesterol [Mass/Vol]207 mg/dLHighNINF - 200 mg/dLNOAZ HealthcareCholesterol in HDL [Mass/Vol]73 mg/bPXkym57 - 60 mg/dLNOAZ HealthcareComment on above:> or =60 mg/dl - LOW CARDIOVASCULAR RISK <40 mg/dl - HIGH CARDIOVASCULAR RISK Magnesium [Mass/Vol]108.0 mg/dLNOAZ HealthcareComment on above:<100 mg/dl OPTIMAL 100-129 mg/dl NEAR OR ABOVE OPTIMAL 130-159 mg/dl BORDERLINE HIGH 160-189 mg/dl HIGH >190 mg/dl VERY HIGH Magnesium [Mass/Vol]26.6 mg/dLNOAZ HealthcareTriglyceride [Mass/Vol]133 mg/dL NINF - 150 mg/dLNOAZ HealthcareCCF CMP (CMP) (FOR REMOTE [facility] USE)on 02-06-2025 Albumin [Mass/Vol]3.7 g/dL3.4 - 5.0 g/dLNOAZ HealthcareALBUMIN GLOBULIN RATIO1.0 NOMS HealthcareALP [Catalytic activity/Vol]107 U/L46 - 116 U/LNOMS HealthcareALT [Catalytic activity/Vol]65 U/LHigh14 - 59 U/LNOMS HealthcareAnion gap [Moles/Vol]13.5 mmol/LNOMS HealthcareAST [Catalytic activity/Vol]23 U/L15 - 37 U/LNOMS HealthcareBilirubin [Mass/Vol]0.3 mg/dL0.2 - 1.0 mg/dLNOAZ Healthcare Calcium [Mass/Vol]9.2 mg/dL8.5 - 10.1 mg/dLNOMS HealthcareChloride [Moles/Vol] 105 mmol/L98 - 107 mmol/LNOMS HealthcareCO2 [Moles/Vol]27.9 mmol/L21.0 - 32.0 mmol/LNOMS HealthcareCreatinine [Mass/Vol]0.89 mg/dL0.55 - 1.02 mg/dLNOMS HealthcareGFR/1.73 sq M.predicted CKD-EPI (S/P/Bld) [Vol rate/Area]>60>=60 mL/min/1.73m 2NOMS HealthcareGlobulin (S) [Mass/Vol]3.7 g/dLNONorthwest Medical Center Glucose [Mass/Vol]111 mg/bCUvvp61 - 106 mg/dLNOAZ HealthcarePotassium [Moles/Vol]4.4 mmol/L3.5 - 5.1 mmol/LNOMS HealthcareProtein [Mass/Vol]7.4 g/dL 6.4 - 8.2 g/dLNOAZ HealthcareSodium [Moles/Vol]142 mmol/L136 - 145 mmol/LNOMS HealthcareTBH EGFR-NON AF EGYPTIAN>60>=60 mL/min/1.73m 2NAMG [facility] HealthcareUrea nitrogen [Mass/Vol]16.0 mg/dL7.0 - 18.0 mg/dLNONorthwest Medical CenterUrea nitrogen/Creatinine [Mass ratio]18.0 mg/mgNONorthwest Medical CenterNo Panel Informationon 92-34-6767Szrtubapvjxgph and review of laboratory resultsAbnoFairmount Behavioral Health System CLINISYNCNONorthwest Medical CenterMR LUMBAR SPINE WO CONTRASTon 31-73-4769IM LUMBAR SPINE WO CONTRASTEXAM: MR LUMBAR SPINE [...] Stern, DONormalNot AvailableALL CBC WITH AUTO DIFFon 42-10-1193OYMDYVGAS ABSOLUTE AUTO0.1NOMS HealthcareBasophils/100 WBC (Bld)0.5 %0.2 - 2.0 %NOMMissouri Delta Medical CenterEosinophils/100 WBC (Bld)3 %0.9 - 7.0 %[facility] Belton HospitalErythrocyte distribution width (RBC) [Ratio]12.7 %11.0 - 15.0 %[facility] HospitalHematocrit (Bld) [Volume fraction]39.2 %36.0 - 48.0 %[facility] Hemoglobin (Bld) [Mass/Vol]13.3 g/dL12.0 - 16.0 g/dLResearch Belton HospitalIMMATURE GRANULOCYTES ABS AUTO0.27HighNONorthwest Medical CenterImmature granulocytes/100 WBC (Bld) 2.6 %High0.0 - 0.5 %[facility] HospitalInterpretation and review of laboratory resultsAbnormalNONorthwest Medical CenterLYMPHOCYTES ABSOLUTE AUTO2.5NOMS [facility] Lymphocytes/100 WBC (Bld)24.6 %20.5 - 60.0 %[facility] Regional Medical CenterH (RBC) [Entitic mass]32.4 pg26.7 - 34.[address] pgNOMosaic Life Care at St. JosephHC (RBC) [Mass/Vol]33.9 g/dL29.9 - 35.2 g/dLCameron Regional Medical CenterV (RBC) [Entitic vol]95.4 fL81.0 - 99.0 fLResearch Belton HospitalMONOCYTES ABSOLUTE AUTO0.5NOMS HealthcareMonocytes/100 WBC (Bld)5.2 % 1.7 - 12.0 %[facility] HospitalNEUTROPHILS ABSOLUTE AUTO6.6HighNONorthwest Medical Center Neutrophils/100 WBC (Bld)64.1 %43.0 - 75.0 %NOMS HealthcarePlatelet mean volume (Bld) [Entitic vol]9.9 fL9.5 - 13.5 fLNOChildren's Mercy Northland EO #0.3NONorthwest Medical Center TBH [id number]'s Mercy Northland RBC4.11LowNOChildren's Mercy Northland WBC10.3[facility] CLINISYNCResearch Belton HospitalEXERCISE STRESS ECG (WITHOUT IMAGING)on 01-08-2025 EXERCISE STRESS ECG (WITHOUT IMAGING)Stress ECG Report: Exercise Stress ECG (without Imaging) [facility] Date of service: 01/08/2025 10:15:05 AM OPERATIONS MANAGER Ordering physician: SOLO CARTY auto radiator specialist: Elvia Caicedo Induction Furnace Operator: Acacia Simeon Interpreting physician: Gracie Villanueva MD [...] to the Ho 10% protocol. The estimated end- exercise MET [...] 154/92 mmHg. The double product achieved was [address]. Medications: Last Used INDERAL 2 Days METOPROLOL METOPROLOL METOPROLOL Resting ECG: Sinus Tachycardia Exercise Protocol: [place] 10% Stress Exercise Table: +-----+ +--------+ +---+---+---+----+---+----+ [...] (HRR): 22 bpm Rate Pressure Product (RPP): 33839 Stress Exercise Observations: Reason for test termination: [...] equation for determining estimated MET values for [facility] stress tests changed. Comparison of test results before and after that date may show a change in estimated M (more content not included)...NormalOhiohealth Hardin Memorial HospitalUrology Office/Clinic Noteon 74-37-4603Ebjpasf Office/Clinic NoteUrology Office/Clinic Note Chief Complaint pt [...] Urnls Dip Stick Auto w/o Microscopy POC 34703 2. Kidney stones (N20.0: Calculus of kidney) S/p R ESWL KUB 06/29/22 at [facility] - negative Metabolic workup 07/08/22 - slightly elevated Na (149), low output volume (1000 mL) KUB 11/16/23 - negative KUB 10/23/24 - negative for stones Reviewed KUB w/ patient. She denies recent flank pain, gross hematuria or stone passage. She would like to continue to monitor for new stones. -Cont stone prevention diet -F/U in 1 year w/ MAYA and KUB ([facility]) prior, or sooner if needed Ordered: Urnls Dip Stick Auto w/o Microscopy POC 39053 3. Stress incontinence (N39.3: Stress incontinence (female) [...] Allergies iodine (unknow) So (more content not included)...[facility] Barberton CampusComment on above:Result Comment: Electronically Signed By: Bela OSEI, Iliana\.br\Date and Time Signed: 01/01/25 12:08 EDTAmbulatory Visit Summaryon 09-27-2502Uvbpzkpmqk Visit SummaryAmbulatory Visit Summary ORION HARPER :1990 Visit Date:12/31/2024 Ambulatory Visit Instructions Your Diagnosis Recurrent UTI Kidney stones Your Care Team Attending Physician - Iliana Cramer PA-C Primary Care Physician - GIOVANI HAGEN MD This Is Your Medications List Misc Prescription (BUPROPION HYDROCHLORIDE ER (XL) 300 [...] Iliana Cramer PA-C Where: [facility] [address] [address]- Medications What How Much When Why Instructions [...] signed up for this yet, please contact retickr at [phone] to get signed up today. Language Information Language assistance services are available as needed. [facility] Barber[facility] CampusCNOVon 58-36-0448YLWGQxrhbe Visit ([facility] ORION HARPER ([id number]) 1990 F Date Time Provider Department 12/30/24 9:00 AM EMMA ROMERO SANDRO During your visit today, we recorded the following information about you: Blood pressure Weight 132/94 92.9 kg Emma Romero APRN.GAME PROGRAMER 12/30/2024 10:35 AM Signed [facility] SECTION FOR CHRONIC PELVIC PAIN OUTPATIENT VISIT DATE 12/30/2024 OUTPATIENT VISIT TYPE CONSULT REFERRING PROVIDER: Javy Boudreaux MD PRIMARY CARE PROVIDER: Giovani Hagen MD, MD PRIMARY MEDICAL LIBRARY ASSISTANT: Consultation requested by referring provider above for an opinion regarding Orion Harper, and my final recommendations will be communicated back to the requesting physician by way of shared medical record or letter via US mail. Recording using ambient [employer] software for draft documentation of the visit was discussed with the patient/authorized inside sales representative; all questions welcomed and answered. Patient/authorized inside sales representative agreed to proceed CHIEF COMPLAINT/REASON [...] is not in contact with those individuals. 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 Cycles: Hysterectomy, Flow: n/a Intermenstrual spotting between periods: N/A Last pap: Pap Results: WNL 03/20/2024, HPV: History of abnormal pap: Yes Short Pump: (MA intake) Dyspareunia: both insertional and deep [...] Pain characteristics: (page 5) Pain started (month/year): 6260-2853 Inciting event: No obvious cause/do not know Onset: Gradual Duration of pain: 2-5 years Character of pain: Sharp, stabbing Wakes from sleep: No Radiation of pain: No Aggravating factors: Short Pump/Sexual contact Alleviating factors: Nothing makes it better Bowel habits: (page 12-13) Nause (more content not included)...NormalOhiohealth Hardin Memorial HospitalXR Foot - right 3 Viewson 81-51-3193Cfqeopq Result: Radiographs: Three views were taken today AP/MORT/LAT Ankle: No fractures or dislocations seen mild swelling circumferentially around the ankle. Small leanne fracture noted of the medial aspect of the medial malleolus.[facility] CenterXR Foot - right 3 Viewson 34-72-1099Fnctfgkkf Study observation (narrative)[facility] HealthcareMLR HEMOGLOBIN A1Con 13-87-0055Vrogdam [Mass/Vol]114 mg/dLResearch Belton HospitalHbA1c (Bld) [Mass fraction]5.6 %4.5 - 6.2 % [facility] HealthcareComment on above:ADA RECOMMENDED LIMIT 4.0 - 6.0 ADA THERAPEUTIC TARGET < 7.0 ACTION SUGGESTED > 7.0 CLINISYNCNONorthwest Medical CenterNo Panel InformationOrdered By: Radiologist Radiology on 51-21-0614VPGLResearch Belton Hospital Work Phone: No Panel Informationon 48-89-8845Czipevimo Study observation (narrative)[facility] HospitalXR ABDOMEN 1V SUPINEon 10-23-2024* * *Final Report* [...] No radiopaque markers are noted in the xilzv-rx-whsu. IMPRESSION: 0 Sitzmarks markers. The previously noted [...] any questions regarding this interpretation, please call [phone]. If you are unable to reach us at the number above, please feel free to contact [facility] eRadiology at [phone]. [id number]^AGFA_IDC^SI^ACNCCFRadiology, MD [place] - 10/23/2024 * * *Final Report* * [...] No radiopaque markers are noted in the kevjy-ln-odtg. IMPRESSION: 0 Sitzmarks markers. The previously noted Sitzmarks markers have all resolved. Transcribe Date/Time: Oct 23 2024 3:10P Dictated by: XAVIER KNOX MD This examination was interpreted and the report reviewed and electronically signed by: XVAIER KNOX MD on Oct 23 2024 3:15PM EST Thank you for allowing us to participate in the care of your patient. Should there be any questions regarding this interpretation, please call [phone]. If you are unable to reach us at the number above, please feel free to contact [facility] Hospitaliology at [phone]. [id number]^AGFA_IDC^SI^ACN NOMS HealthcareXR ABDOMEN 1V SUPINE* * *Final [...] No radiopaque markers are noted in the loisa-nf-snck. IMPRESSION: 0 Sitzmarks markers. The previously noted [...] any questions regarding this interpretation, please call [phone]. If you are unable to reach us at the number above, please feel free to contact [facility] eRadiology at [phone]. [id number]_IDCSIACNNormalOhiohealth Hardin Memorial HospitalXR Abdomen Supine and [place] 28-66-4529LCGBJRAGUJ: 0 Sitzmarks markers. The previously noted Sitzmarks [...] any questions regarding this interpretation, please call [phone]. If you are unable to reach us at the number above, please feel free to contact [facility] eRadiology at [phone].DIVISION OF RADIOLOGY* * *Final Report* * * [...] No radiopaque markers are noted in the vaguk-cm-vydn. DIVISION OF RADIOLOGYProvider, [facility] - 10/23/2024 * * *Final Report* * [...] No radiopaque markers are noted in the yjqlq-iq-fvwc. IMPRESSION IMPRESSION: 0 Sitzmarks markers. The previously [...] any questions regarding this interpretation, please call [phone]. If you are unable to reach us at the number above, please feel free to contact [facility] eRadiology at [phone]. [facility] HospitalI HEAD/BRAIN WO/W CONTRon 34-28-9289IsuSauls[place] [address] Magnetic Resonance Report Signed Patient: ORION HARPER MR#: [id number] : 1990 Acct:[id number] Age/Sex: 34 / F ADM Date: 10/21/24 Loc: MRI Attending Dr: SHANNON OCHOA Ordering Physician: SHANNON OCHOA Date of Service: 10/21/24 Procedure(s): MR head/brain wo/w con Accession Number(s): [id number] cc: GIOVANI HAGEN ; SHANNON OCHOA [place] [address] Patient Name: ORION HARPER MRN: TBH:[id number] date: 1990 Sex: F Assigned Patient Location: MRI Current Patient Location: MRI Accession/Order Number: [id number] Exam Date: 10/21/2024 11:17 Report Date: 10/21/2024 [...] Knight M.D. 10/21/2024 11:39 AM Dictation Location: [place] [address] Electronically authenticated by: [id number] Y Date: 10/21/2024 11:39 Dictated By: Sandy Knight M.D. Signed By: 10/21/24 1142 DD/ 1139 TD/TT: Docket Clerk:TBHRadiology, Radiologist, MD - 10/21/2024 [place] [address] Magnetic Resonance Report Signed Patient: ORION HARPER MR#: [id number] : 1990 Acct:[id number] Age/Sex: 34 / F ADM Date: 10/21/24 Loc: MRI Attending Dr: SHANNON OCHOA Ordering Physician: SHANNON OCHOA Date of Service: 10/21/24 Procedure(s): MR head/brain wo/w con Accession Number(s): [id number] cc: GIOVANI HAGEN ; SHANNON OCHOA [place] [address] Patient Name: ORION HARPER MRN: [facility]:[id number] date: 1990 Sex: F Assigned Patient Location: MRI Current Patient Location: MRI Accession/Order Number: [id number] Exam Date: 10/21/2024 11:17 Report Date: 10/21/2024 [...] Knight M.D. 10/21/2024 11:39 AM Dictation Location: [place] [address] Electronically authenticated by: [id number] Y Date: 10/21/2024 11:39 Dictated By: Sandy Knight M.D. Signed By: 10/21/24 1142 DD/ 1139 TD/TT: Docket Clerk: [facility] HospitalRadiology Study observation (narrative)[facility]ton HospitalMRI HEAD/BRAIN WO/W CONTROrdered By: Radiologist Radiology on 50-37-4638NSWT [employer] Work Phone: XR ABDOMEN 1V SUPINEon 09-11-1296BB ABDOMEN 1V SUPINE* * *Final Report* * [...] Sitzmarks markers. IMPRESSION: Sitzmarks markers as described. Docket Clerk: MINAL Transcribe Date/Time: Oct 28 2024 9:07A Dictated by : ANNITA STILL MD This examination was interpreted and the report reviewed and electronically signed by: ANNITA STILL MD on Oct 28 2024 9:08AM EST [id number] South Haven HospitalJzfmapxw7921435423lo [id number] ID: [id number] Author: LYDIA ROCK, WU, DPT Service: ? Author Type: Physical Therapist Type: [id number] Filed: 10/11/2024 15:55 Note Text: [facility] Physical Therapy Plan of Care Certification Patient Name: Orion Harper : 1990 [facility] #: [id number] Date: 10/11/2024 To: Mario Harper APRN* From [...] Planned: 4 Planned Treatment Interventions: Therapeutic exercise (94309), Neuromuscular re-education (28105), Manual therapy (55345), Therapeutic activities (75859), Self-assisted management (72138), Patient/Family/Caregiver Education, Body Mechanics Training PLAN FOR [...] reviewed the treatment plan for Orion Harper, [facility]# [id number] for the period of 10/11/24 -- 01/09/25, established on 10/11/2024. Signature certifies the need for therapy services.NormalDiley Ridge Medical CenterHERAPYon 93-30-9453MBTOYBTTCEM/PT/Speech Visit (PTCORD) ORION HARPER ([id number]) 1990 F Date Time Provider Department 10/11/24 2:45 PM LYDIA ROCK PTCORD Date Time Provider Department Center 10/11/2024 2:45 PM [id number] ROCK [facility] Reason for Visit: [...] Date Reviewed: 10/09/2024 Reviewed by: Mario Harper APRN.GAME PROGRAMER - Fully Assessed Prescriptions as of 01/14/2025 [...] capsule Take 4.5 mg by mouth once daily.[facility] 61-16-3708KRLKBtgkvb Visit ([facility]) ORION HARPER ([id number]) 1990 F Date Time Provider Department 10/09/24 1:00 PM MARIO HARPER [facility] During your visit today, we recorded the following information about you: Pulse Blood pressure Weight 106/minute 112/76 86.6 kg Mario Harper, FLIGHT ATTENDANT INFLIGHT SERVICES.GAME PROGRAMER 10/09/2024 2:03 PM Signed COLORECTAL SURGERY October 09, 2024 Orion Harper 34 year old This consult was requested by Dr. Winn and my final recommendations will be communicated to the requesting health care provider by way of the shared medical record for internal providers or letter via the [place] Postal Service for external providers. Recording using [employer]wi software for draft documentation of the visit was discussed with the patient/authorized inside sales representative; all questions welcomed and answered. Patient/authorized inside sales representative agreed to proceed Chief Complaint: [...] face. Also, pt complaine (more content not included)...NormalOhiohealth Hardin Memorial HospitalCNPNon 42-71-7931ASHMLbjyzelra (TANI) ORION HARPER ([id number]) 1990 F Date Time Provider Department 10/01/24 [...] Order(s):CONSULT TO COLO-RECTAL SURGERY [] Order #: [id number]: 1 FUTURE Prescriptions as of 10/02/2024 - [...] 11/02/2022 Encounter Status:Closed by ILIANA MERCADO on 10/01/24[facility] HospitalCholesterol [Mass/volume] in Serum or PlasmaOrdered By: Dank Green on 04-77-0271Rmigyitejdn [Mass/Vol]Cholesterol [Mass/volume] in Serum or Hoikto281-562AymzirarvGeorgetown Behavioral HospitalComment on above:Chol less than 200 mg/dl low riskChol 201-239 mg/dl borderline riskChol 240 mg/dl and greater high riskCholesterol in HDL [Mass/volume] in Serum or PlasmaOrdered By: Dank Green on 19-55-3175Toqpiseiixv in HDL [Mass/Vol]Serum or plasma high density lipoprotein (HDL) cholesterol awgvpxqclbo34-17FnmmsyluyGeorgetown Behavioral HospitalComment on above:HDL CHOL ATP-III CLASSIFICATION Cardiovascular RiskHDL > or equal to 60 mg/dL LOWHDL < 40 mg/dL HIGHCholesterol in LDL Calc [Mass/Vol]Ordered By: Dank Green on 00-53-7666Wqkntdsmpdg in LDL [Mass/Vol]Cholesterol in LDL [Mass/volume] in Serum or Plasma by calculationHigh 0-100Georgetown Behavioral HospitalComment on above:LDL ATP III CLASSIFICATIONLDL less than 100 mg/dL OptimalLDL 100-129 mg/dL Near or above jwpdtyfRPA328-609 mg/dL Borderline highLDL 160-189 mg/dL HighLDL greater than 189 mg/dL Very highCholesterol in VLDL Calc [Mass/Vol]Ordered By: Dank Green on 34-49-7518Rmkbhgdrqcb in VLDL [Mass/Vol]Cholesterol in VLDL [Mass/volume] in Serum or Plasma by calculationGeorgetown Behavioral Hospital Lipid Panelon 15-63-3300Ggecinxuoyo [Mass/Vol]183 mg/qJOnfaxv225-033Bnb [facility]hrmc Physician GroupComment on above:Result Comment: Chol less than 200 mg/dl low risk Chol 201-239 mg/dl borderline risk Chol 240 mg/dl and greater high riskPerformed By: #### TSH3 wRFLX, LIPID, [id number] #### [facility] [address] [place] [address] USACholesterol in HDL [Mass/Vol]59 mg/iBInbzzb60-80Xrz [facility]hrmc Physician GroupComment on above:Result Comment: HDL CHOL ATP-III CLASSIFICATION Cardiovascular Risk HDL > or equal to 60 mg/dL LOW HDL < 40 mg/dL HIGHPerformed By: #### TSH3 wRFLX, LIPID, [id number] #### [facility] [address] [place] [address] USACholesterol.total/Cholesterol in HDL [Mass ratio]3.1 {ratio}Normal<5.0The [facility] / Nhrmc Physician GroupComment on above:Performed By: #### TSH3 wRFLX, LIPID, [id number] #### [facility] [address] [place] [address] USALDL Cholesterol,Degwduljrc601 mg/dLHigh0-100The [facility] Nhrmc Physician GroupComment on above:Result Comment: LDL ATP III CLASSIFICATION LDL less than 100 mg/dL Optimal LDL 100-129 mg/dL Near or above optimal LDL 130-159 mg/dL Borderline high LDL 160-189 mg/dL High LDL greater than 189 mg/dL Very highPerformed By: #### TSH3 wRFLX, LIPID, [id number] #### [facility] [address] [place] [address] USATriglyceride w/Bjjioh140 mg/dLNormal0-149[facility] Physician GroupComment on above:Result Comment: TRIG ATP III CLASSIFICATION TRIG less than 150 mg/dL Normal TRIG 150-199 mg/dL Borderline high TRIG 200-500 mg/dL High TRIG greater than 500 mg/dL Very high Standard traceable to the Center for Disease Conrtrol and Prevention (CDC) test method.Performed By: #### TSH3 wRFLX, LIPID, [id number] #### [facility] [address] [place] [id number] USAVLDL BPFUIDZFIXV42 mg/dLNormalThEastern Idaho Regional Medical Center Physician GroupComment on above:Performed By: #### TSH3 wRFLX, LIPID, [id number] #### [facility] [address] [place] [id number] USASerum or plasma total cholesterol/high density lipoprotein (HDL) cholesterol mass ratOrdered By: Dank Green on 08-17-2024 Cholesterol.total/Cholesterol in HDL [Mass ratio]Serum or plasma total cholesterol/high density lipoprotein (HDL) cholesterol mass rat<5.0[facility] Behavioral HospitalThyroid Stim Hormone w/Rflxon 99-32-6127Uszpzai Stim Hormone w/Rflx3.84 u[iU]/mLNormal0.45-5.33[facility] Physician GroupComment on above:Performed By: #### TSH3 wRFLX, LIPID, [id number] #### [facility] [address] [place] [address] USAThyrotropin [Units/volume] in Serum or PlasmaOrdered By: Dank Green on 79-12-6812HEI QnThyrotropin [Units/volume] in Serum or Plasma0.45-5.33[facility] HospitalTriglyceride [Mass/volume] in Serum or PlasmaOrdered By: Dakn Green on 91-39-3219Tzyynxdrzejn [Mass/Vol]Triglyceride [Mass/volume] in Serum or Plasma0-149[facility] HospitalComment on above:TRIG ATP III CLASSIFICATIONTRIG less than 150 mg/dL NormalTRIG 150-199 mg/dL Borderline highTRIG 200-500 mg/dL High TRIG greater than 500 mg/dL Very highStandard traceable to the Center for Disease Co nrtrol and Prevention ([facility] [place]) test method.Vitamin D 25 Hydroxy Totalon 08-17-2024 Vitamin D 25 Hydroxy Total13.6 ng/jSBjj45-456Vlp [facility] Comment on above:Result Comment: VITAMIN D STATUS 25(OH)VITAMIN D RANGE (ng/mL) Deficient <20 Insufficient 20 to <30 Sufficient 30 to 100 Reference: Cheyanne Valle, Elio MELVIN et al. Evaluation,treatment, and prevention of vitamin D deficiency; an Endocrine Society clinical practice guideline. JCEM. 2010; 96(7):191-. PERFORMED BY: [facility] [address] [place] [address] PATHOLOGIST SMOKING PIPE REPAIRER PADILLA MOLINA M.D.Performed By: #### TSH3 wRFLX, LIPID, [id number] #### [facility] [address] StreetVitamin D+Metabolites [Mass/volume] in Serum or Plasma Ordered By: Dank Green on 44-28-7898Qqpxwnj D+Metabolites [Mass/Vol] Vitamin D+Metabolites [Mass/volume] in Serum or YalibeBlb78-496RdiadnvkdGeorgetown Behavioral HospitalComment on above:VITAMIN D STATUS 25(OH)VITAMIN D RANGE (ng/mL) Deficient <20 Insufficient 20 to <04Vkzyrpbgpd72 to 100Reference: Cheyanne Valle, Elio MELVIN et al. Evaluation,treatment, and prevention of vitamin D deficiency; an Endocrine Society clinical practice guideline. JCEM. 2010; 96(7):1911-.CNOVon 69-90-1838VCQUKtuhcz Visit (CARDMN) ORION HARPER ([id number]) 1990 F Date Time Provider Department 08/13/24 2:30 PM SOLO CARTY CARDMN During your visit today, we recorded the following information about you: Pulse Blood pressure Weight Height 92/minute 140/96 81.6 kg 1.6 m Solo Carty MD 08/26/2024 3:56 PM Signed [facility] Meghna Hooker Department of Cardiovascular Medicine SECTION OF CARDIAC PACING and ELECTROPHYSIOLOGY OUTPATIENT VISIT DATE August 13, 2024 OUTPATIENT VISIT TYPE ESTABLISHED PRIMARY CARE PHYSICIAN: Giovani Hagen MD [address] [place] [address] CHIEF COMPLAINT: Syncope HISTORY OF PRESENT ILLNESS:(NURSING [...] was negative for ischemia (more content not included)...[facility] TREADMILLon 08-13-2024 STRESS ECHO TREADMILLStress County Engineer Report: Stress [facility] J1-5 Date of service: 08/13/2024 12:34:08 PM OPERATIONS MANAGER Supervising physician: Geremias Higuera MD PATIENT: Name: ORION HARPER Age: 33 years Gender: F The supervising physician was in the department and immediately available. Final Echocardiography Report: Stress [facility] J1-5 Date of service: 08/13/2024 12:34:08 PM OPERATIONS MANAGER Ordering physician: SOLO CARTY Indication: Syncope Technologist: [...] the prior echocardiographic exam performed on 04/09/2024 ([place]). The major resting echocardiographic findings are comparable. Final Stress ECG Report: Stress [facility] J1-5 Date of service: 08/13/2024 12:34:08 PM OPERATIONS MANAGER Ordering physician: SOLO CARTY auto radiator specialist: Bunny Epperson Fellow: Kiley Gallagher MD [...] sex. The estimated e (more content not included)...NormalOhiohealth Hardin Memorial HospitalCNPNon 26-88-6515RKIF Telephone (GASTNO) ORION HARPER ([id number]) 1990 F Date Time Provider Department 07/26/24 [...] high Latest Reference Range AND Units 04/26/24 15:07/10/24 11:43 Ferritin 14.7 - 205.1 ng/mL 420.9 (H) 392.0 (H) (H): Data is abnormally high Iliana, Looks like labs were completed at [facility]. Patient is asking about results. Thank [...] 11/02/2022 Encounter Status:Closed by ACACIA GONZALEZ on 08/15/24[facility] 50-58-7517RLYDCysewk Visit (OBGYCC) ORION HARPER ([id number]) 1990 F Date Time Provider Department 07/10/24 9:30 AM [facility] During your visit today, we recorded the following information about you: Pulse Blood pressure Weight Height 108/minute 131/90 86.2 kg 1.588 m Last Period 05/25/15 Javy Boudreaux MD 07/10/2024 10:15 AM Signed SUBJECTIVE: Orion Harper is a 33 year old female Patient presents with: Vaginal Problem: Pt presents today for consult - painful intercourse Referred here by her BASIC ACOUSTIC ANALYST at [place]. Has been having pain with intercourse for [...] - PELVIC US WHI - CONSULT TO BASIC ACOUSTIC ANALYST PELVIC PAIN 2. Pelvic pain in female - ICD9: 625.9, ICD10: R10.2 - counseled. - PELVIC US WHI - CONSULT TO BASIC ACOUSTIC ANALYST PELVIC PAIN Javy Boudreaux MD Medical Decision Making: Problems: Moderate: New problem with uncertain prognosis Data: Unique test(s) ordered: 2 Risk: Low: Low risk from testing/treatment Medical Decision Making Level: 3 - Low Referring Provider: DARWIN STARR [[id number]] Allergies As of Date: 07/10/2024 Noted Allergy [...] Other Visit Diagnosis:Pelvic edward (more content not included)...NormalOhiohealth Hardin Memorial HospitalComprehensive metabolic 2000 panelon 76-22-3126Jpfhjxc [Mass/Vol]4.5 g/dLNormal3.9-4.9COhioHealth Doctors Hospital on above:Order Comment: Specimen Type: BLOOD SPECIMENOrdering Facility: [facility] Address:[address] [place], [place] [address]Performed By: #### 76760- 8, 2276-4 ####[facility] LABCLIA [id number] [address] [place]95[place] [address] [place] AMERICAALP [Catalytic activity/Vol]130 U/FCcsg76-747FdtnkywyvMercy Health St. [facility]'s [facility] on above:Order Comment: Specimen Type: BLOOD SPECIMENOrdering Facility: [facility] Address:[address] [id number] By: #### 29211- 8, 2275-07 ####[facility] LABCLIA [id number] [address] [place] [address] [place] AMERICAALT [Catalytic activity/Vol]141 U/LHigh7-38[facility] on above:Order Comment: Specimen Type: BLOOD SPECIMENOrdering Facility: [facility] Address:[facility] [place] [id number] By: #### 51646- 8, 2275-07 ####[facility] LABCLIA [id number] [facility]D [address] [place] [address] [place] AMERICAAnion gap [Moles/Vol]11 mmol/LNormal8-15[facility] on above:Order Comment: Specimen Type: BLOOD SPECIMENOrdering Facility: [facility] Address:[facility] [address] [place] [id number] By: #### 85079-2, 2275-07 ####[facility] LABCLIA [id number] [facility] COMM[facility]ITY HOSPITALK [address] [place] [address] [place] AMERICAAST [Catalytic activity/Vol]90 U/PYuga34-87VlfcbdcqmMercy Health St. [facility] on above:Order Comment: Specimen Type: BLOOD SPECIMENOrdering Facility: [facility] Address:[facility] [address] [place] [id number] By: #### 93529-2, 2275-07 ####[facility] LABCLIA [id number] [facility] COMM[facility]ITY HOSPITALK [address] [place] [address] [place] AMERICABilirubin [Mass/Vol]0.4 mg/dLNormal0.2-1.[address] [facility] on above:Order Comment: Specimen Type: BLOOD SPECIMENOrdering Facility: [facility] Address:[address] [place], [place] [address]Performed By: #### 35497-8, 2275-07 ####[facility] LABCLIA [id number] [address] AVENUED[address], [place] [address] [place] AMERICACalcium [Mass/Vol]9.4 mg/dLNormal8.5-10.2COhioHealth Doctors Hospital on above:Order Comment: Specimen Type: BLOOD SPECIMENOrdering Facility: [facility] Address:[address] [place], [place] [address]Performed By: #### 80753-2, 2275-07 ####[facility] LABCLIA [id number] [facility]CL[facility] AVENUESUTTER [facility] [place] [address] [place] AMERICAChloride [Moles/Vol]102 mmol/PQnktbj54-340GtnrhfotoOhiohealth Hardin Memorial Hospital Comment on above:Order Comment: Specimen Type: BLOOD SPECIMENOrdering Facility: [facility] Address:[address] [place] [address] Performed By: #### 85120-7, 2275-07 ####[facility] LABCLIA [id number] [facility] COMM[facility]ITY HOSPITALK [place] [address] [place] YASH CO2 [Moles/Vol]23 mmol/BUmnalf49-46FhgqmawjqMercy Health St. [facility] on above: Order Comment: Specimen Type: BLOOD SPECIMENOrdering Facility: [facility] Address:[address] [place], [place] [address]Performed By: #### 73823- 8, 2275-07 ####[facility] LABCLIA [id number] [address] ENUEDK [place] [address] [place] AMERICACreatinine [Mass/Vol] 0.71 mg/dLNormal0.58-0.96[facility] on above:Order Comment: Specimen Type: BLOOD SPECIMENOrdering Facility: [facility] Address:[address] [place], [place] [address]Performed By: #### 85702- 8, 2275-07 ####[facility] LABCLIA [id number] [facility] HOSPITALLID ENUEDESK [place] [id number] [place] AMERICACreatinine and Glomerular filtration rate.predicted panel (S/P/Bld)114 mL/min/1.73m???Normal >=60Ohiohealth Hardin Memorial HospitalComment on above:Order Comment: Specimen Type: BLOOD SPECIMENOrdering Facility: [facility] Address:[address] [place] [place] [id number] Comment: Estimated Glomerular Filtration Rate (eGFR) is calculated using the 2020 CKD-EPI creatinine equation. This equation utilizes serum creatinine, sex, and age as parameters. The creatinine assay has traceable calibration to isotope dilution-mass spectrometry. Refer to KDIGO guidelines for clinical interpretation. In patients with unstable renal function, e.g. those with acute kidney injury, the eGFR may not accurately reflect actual GFR.Performed By: #### 97589-1, 2276-4 ####[facility] LABIA [id number] [place] [address], [place] [address] [place] AMERICAGlucose [Mass/Vol]121 mg/mPVyuv00-87PzcyzrxqzOhiohealth Hardin Memorial Hospital Comment on above:Order Comment: Specimen Type: BLOOD SPECIMENOrdering Facility: [facility] Address:[address] [place] [id number] Comment: The [place] Diabetes Association (ADA) provides guidance for cutoff [...] Standards of Medical Care in Diabetes 2016, [place] Diabetes Association. Diabetes Care. 2016.39(Suppl 1).Performed By: #### 44629-2, 2276-4 ####[facility] LABIA [id number] [facility] [place], [place] [address] [place] AMERICAPotassium [Moles/Vol]3.6 mmol/L Low3.7-5.1COhioHealth Doctors Hospital on above:Order Comment: Specimen Type: BLOOD SPECIMENOrdering Facility: [facility] Address:[address] [place], [place] [address]Performed By: #### 26089-3, 2275-07 ####[facility] LABCLIA [id number] [place] [address] [place] AMERICAProtein [Mass/Vol]7.3 g/dLNormal6.3-8.0[facility] Hospitalment on above:Order Comment: Specimen Type: BLOOD SPECIMENOrdering Facility: [facility] Address:[address] [place], [place] [address]Performed By: #### 11652-4, 2275-07 ####[facility] LABCLIA [id number] [place] [address] [place] AMERICASodium [Moles/Vol]136 mmol/BFpdfqe809-488XmymigjrtMercy Health St. Rita's Medical Center on above:Order Comment: Specimen Type: BLOOD SPECIMENOrdering Facility: [facility] Address:[address] [place], [place] [address]Performed By: #### 84255-6, 2275-07 ####[facility] LABCLIA [id number] [place] [address] [place] AMERICAUrea nitrogen [Mass/Vol]9 mg/dLNormal7-21[facility] Comment on above:Order Comment: Specimen Type: BLOOD SPECIMENOrdering Facility: [facility] Address:[address] [place] [address] Performed By: #### 84646-0, 2275-07 ####[facility] LABCLIA [id number] [place] [address] [place] Ferritin SerPl-mCncon 73-14-3586Oehbkzip [Mass/Vol]392.0 ng/nNNzng35.7-205.[address] [facility] on above:Order Comment: Specimen Type: BLOOD SPECIMENOrdering Facility: [facility] Address:[address] [place], [place] [address]Performed By: #### 57606-4, 2276-4 ####[facility] LABCLIA [id number] [place] [address] [place] AMERICAUS Pelvison 07-10-2024 Indication [...] Kate RDMS Read By: Lulú Jo M.D.MATERNAL MEDICINECleveland Clinic Euclid HospitalRadiology Study observation (narrative)[facility] Euclid HospitalXR ABD 2V SUPINE W UPR/DECUB/CTLon 79-29-7340UD ABD 2V SUPINE W UPR/DECUB/CTL* * *Final [...] IMPRESSION: Mild to moderate colonic stool content Docket Clerk: PSCB Transcribe Date/Time: Jul 13 2024 9:59A Dictated by : BUNNY LIANG MD This examination was interpreted and the report reviewed and electronically signed by: BUNNY LIANG MD on Jul 13 2024 10:05AM EST [id number] Hardin Memorial HospitalXR Ankle - right 3 Viewson 88-86-1382Oylawdx Result: Three views were taken today AP/MORT/LAT Ankle: No fractures or dislocations seen joint in good position and alignmentNOMS HealthcareNOAZ HealthcareRadiology Study observation (narrative)NOMS HealthcareRECURRENT VAGINITIS (HTRX)on 53-12-3485ZALZLTSCS FVCNTAE7REYR HealthcareATOPOBIUM VAGINAE Not detectedNOMS HealthcareBVAB 2,3 (BACTERIAL VAGINOSIS ASSOCIATED BACTERIA 2, 3); MOBILUNCUS WVY7JVWC HealthcareBVAB 2,3 (BACTERIAL VAGINOSIS ASSOCIATED BACTERIA 2, 3); MOBILUNCUS SPPNot detectedNOMS HealthcareCANDIDA ALBICANS, PARAPSILOSIS, VXYGUDJKKH9UCUY HealthcareCANDIDA ALBICANS, PARAPSILOSIS, TROPICALISNot detectedNOMS HealthcareCANDIDA MJEFJAJP8NWCN HealthcareCANDIDA GLABRATANot detectedNOMS HealthcareCANDIDA XVQJMQ5DILX HealthcareCANDIDA KRUSEI Not detectedNOMS HealthcareCHLAMYDIA TREPCASHKOL4SQDD HealthcareCHLAMYDIA TRACHOMATISNot detectedNOMS HealthcareGARDNERELLA WJIKMVUOV4WOXX Healthcare GARDNERELLA VAGINALISNot detectedNOMS HealthcareMEGASPHAERA (TYPES 1, 2)0NOMS HealthcareMEGASPHAERA (TYPES 1, 2)Not detectedNOMS HealthcareMYCOPLASMA PCKNJVDXKE2PLUU HealthcareMYCOPLASMA GENITALIUMNot detectedNOMS Healthcare NEISSERIA LQNOSHGNBYF1HWWZ HealthcareNEISSERIA GONORRHOEAENot detectedNOMS HealthcareTRICHOMONAS NHEEJUKRC2JNHE HealthcareTRICHOMONAS VAGINALISNot detected NOMS HealthcareNOMS HealthcareMLR HEMOGLOBIN A1Con 01-72-3120Ywwsstf [Mass/Vol] 126 mg/dLNOMS IxkooeraicYdK6h (Bld) [Mass fraction]6 %4.5 - 6.2 %[facility] Healthcare Comment on above:ADA RECOMMENDED LIMIT 4.0 - 6.0 ADA THERAPEUTIC TARGET < 7.0 ACTION SUGGESTED > 7.0 CLINISYNCNOAZ HealthcareALL CBC WITH AUTO DIFFon 56-45-9027KPWTKUZVN ABSOLUTE WKFB9MQKJ HealthcareBasophils/100 WBC (Bld)0.4 %0.2 - 2.0 %NOMMissouri Delta Medical Center Eosinophils/100 WBC (Bld)4.4 %0.9 - 7.0 %Research Belton HospitalErythrocyte distribution width (RBC) [Ratio]13.2 %11.0 - 15.0 %NOM HealthcareHematocrit (Bld) [Volume fraction]41.6 %36.0 - 48.0 %[facility] HospitalHemoglobin (Bld) [Mass/Vol]14 g/dL 12.0 - 16.0 g/dLResearch Belton HospitalIMMATURE GRANULOCYTES ABS AUTO0.13HighNONorthwest Medical CenterImmature granulocytes/100 WBC (Bld)1.6 %High0.0 - 0.5 %[facility] Interpretation and review of laboratory resultsAbnormalResearch [facility] Hospital LYMPHOCYTES ABSOLUTE AUTO2.7NONorthwest Medical CenterLymphocytes/100 WBC (Bld)33.8 %20.5 - 60.0 %[facility] HospitalMCH (RBC) [Entitic mass]32.6 pg26.7 - 34.0 pgResearch Belton HospitalMCHC (RBC) [Mass/Vol]33.7 g/dL29.9 - 35.2 g/dLResearch Belton HospitalMCV (RBC) [Entitic vol]96.7 fL81.0 - 99.0 fLResearch Belton HospitalMONOCYTES ABSOLUTE AUTO0.5NOAZ HealthcareMonocytes/100 WBC (Bld)5.9 %1.7 - 12.0 %[facility] HospitalNEUTROPHILS ABSOLUTE AUTO4.4NOMS HealthcareNeutrophils/100 WBC (Bld)53.9 %43.0 - 75.0 %[facility] HospitalPlatelet mean volume (Bld) [Entitic vol]10.4 fL9.5 - 13.5 fLNONorthwest Medical CenterTBH EO #0.4NOMS HealthcareTB WYX281XEOP [facility] HospitalTB RBC4.3NOMS [facility] WBC8.1NOMS HealthcareCLINISYNCNFreeman Health SystemC. difficile toxin genes SHEILA+probe Ql (Stl)on 17-84-2087Hzlqttvxxmtgrk and review of laboratory resultsAbnormalCleveland Paulding County HospitalCLOSTRIDIUM DIFFICILE TOXIN BY PCRon 05-23-2024. difficile toxin genes SHEILA+probe Ql (Stl)PositiveAbnormal Negative for C. difficile toxin by PCRCleveland Clinic Euclid HospitalComment on above:A positive PCR result may indicate [...] without pre-agreed criteria for specimen submission. [place] 11-77-6304UAXNCfvodbgln (TANI) ORION HARPER ([id number]) 1990 F Date Time Provider Department 05/23/24 [...] 11/02/2022 Encounter Status:Closed by BENITO PRINCE on 05/24/24[facility]AN[facility] POSTPROC EVALon 31-97-2362MCKV POSTPROC EVALHNO ID: [id number] Author: OBED BHATT APRN.WEBSPHERE COMMERCE CONSULTANT Service: Anesthesiology Author Type: Nurse Washing Machine Loader And Puller Type: Anesthesia Postprocedure Evaluation Filed: 05/22/2024 14:22 Note Text: POST ANESTHESIA EVALUATION NOTE : 1990 Procedure Summary Date: 05/22/24 Room / Location: Ambulatory Surgery Anesthesia Start: 1345 Anesthesia Stop: 142 Procedure: COLONOSCOPY DIAGNOSTIC Diagnosis: BRBPR (bright red blood per rectum) (Rectal bleeding) Scheduled Providers: Carol Winn MD; Obed Bhatt APRN.WEBSPHERE COMMERCE CONSULTANT; Millicent Schmitz RN Responsible Provider: Obed Bhatt [...] May 22, 2024 TIME: 2:22 PM CSN: [id number]ne [facility] PRE-OPon 02-39-6035EWPW PRE-OPHNO ID: [id number] Author: OBED BHATT APRN.CRNA Service: Anesthesiology Author Type: Nurse Washing Machine Loader And Puller Type: Anesthesia Preprocedure Evaluation Filed: 05/22/2024 14:23 Note Text: ANESTHESIOLOGY DAY OF SURGERY NOTE : 1990 Procedure Information Anesthesia Start Date/Time: 05/22/24 1345 Scheduled providers: Carol Winn MD; Obed Bhatt APRN.WEBSPHERE COMMERCE CONSULTANT; Millicent Schmitz RN Procedure: COLONOSCOPY DIAGNOSTIC Location: [...] 48 hours of Surgery/Procedure. SIGNATURE: Obed Bhatt APRN.WEBSPHERE COMMERCE CONSULTANT PATIENT NAME: Oiron Harper DATE: May 22, 2024 TIME: 2:22 PM CSN: [id number] Clinic Union HospitalANES PRE-OPHNO ID: [id number] Author: OBED BHATT APRN.CRNA Service: Anesthesiology Author Type: Nurse Washing Machine Loader And Puller Type: Anesthesia Preprocedure Evaluation Filed: 05/22/2024 14:21 Note Text: ANESTHESIOLOGY DAY OF SURGERY NOTE : 1990 Procedure Information Anesthesia Start Date/Time: 05/22/24 1345 Scheduled providers: Carol Winn MD; Obed Bhatt APRN.WEBSPHERE COMMERCE CONSULTANT; Millicent Schmitz RN Procedure: COLONOSCOPY DIAGNOSTIC Location: [...] 48 hours of Surgery/Procedure. SIGNATURE: Obed Bhatt APRN.WEBSPHERE COMMERCE CONSULTANT PATIENT NAME: Orion Harper DATE: May 22, 2024 TIME: 2:18 PM CSN: [id number] County Health Center diff Tox gens Stl Ql SHEILA+probeon 05-22-2024. difficile toxin genes SHEILA+probe Ql (Stl)Positive AbnormalNegative for C. difficile toxin by PCROhiohealth Hardin Memorial HospitalComment on above:Order Comment: Specimen Type: STOOL SPECIMENOrdering Facility: [facility] Address:[facility] [address] [place], [place] [address]Result Comment: A positive PCR result may indicate [...] pre-agreed criteria for specimen submission.Performed By: #### 28412-5, CDEIA ####[facility] LABCLIA [id number] [place] [id number] [place] BAR[facility]ERT[place] CITIZENS HOSPITALCLOSTRIDIUM DIFFICILE TOXIN BY EIAon 05-22-2024. difficile toxin A+B IA Ql (Stl)Not detectedNormalNegative for C. difficile toxinOhiohealth Hardin Memorial HospitalComment on above:Order Comment: Specimen Type: STOOL SPECIMENOrdering Facility: [facility] Address:[address] [place], [place] [address]Result Comment: Toxin EIA is less sensitive than cell cytotoxin and PCR assays. Clinical correlation of PCR positive/toxin EIA negative results is required to distinguish C. difficle colonization from disease.Performed By: #### 89220-5, CDEIA ####[facility] LABCLIA [id number] [place] [id number] [place] OF [facility] CITIZENS HOSPITALCOLONOSCOPYon 98-24-7676T[facility]z [place] [facility] Patient Name: Orion Harper Procedure Date: 05/22/2024 1:40 PM Date of : 1990 Admit Type: Outpatient Age: 33 Room: [place] [address] Gender: Female Note Status: Finalized Attending MD: Carol Winn MD, [id number] Procedure: Colonoscopy Indications: Rectal bleeding, Change in bowel habits, Diarrhea for 2-3 weeks. Had bronchitis prior to that and was given steroids and antibiotics Providers: Carol Winn MD Patient Profile: This is a 33 year old female. Refer to note in patient chart for documentation of history and physical. Last Colonoscopy: May 2019. Referring Physician: Iliana Mercado (Referring ) Medicines: Monitored Anesthesia Care Complications: [...] verified by the physician, the nurse, the guest relations manager and the veterinary laboratory technician in the procedure room. Mental [...] bowel preparation was evaluated using the BBPS ([place] Bowel Preparation Scale) with scores of: Right [...] ph (more content not included)...[facility], Radiologist, - 05/22/2024 [facility]astroenterology Gastrointestinal Endoscopy Patient Name: Orion Harper Procedure Date: 05/22/2024 1:40 PM Date of : 1990 Admit Type: Outpatient Age: 33 Room: [facility] 2 Gender: Female Note Status: Finalized Attending MD: Carol Winn MD, [id number] Procedure: Colonoscopy Indications: Rectal bleeding, Change in [...] verified by the physician, the nurse, the guest relations manager and the veterinary laboratory technician in the procedure room. Mental [...] bowel preparation was evaluated using the BBPS ([place] Bowel Preparation Scale) with scores of: Right [...] not included)...NOMS HealthcareCOLONOSCOPYOrdered By: Radiologist Radiology on 49-23-6933WRCW Comuto Work Phone: colonoscopyon [phone] [facility] Patient Name: Orion Harper Procedure Date: 05/22/2024 1:40 PM Date of : 1990 Admit Type: Outpatient Age: 33 Room: [facility] 2 Gender: Female 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 Override Attending MD: Carol Winn MD, [id number] Procedure: Colonoscopy Indications: Rectal bleeding, Change in [...] verified by the physician, the nurse, the guest relations manager and the veterinary laboratory technician in the procedure room. Mental [...] bowel preparation was evaluated using the BBPS ([place] Bowel Preparation Scale) with scores of: Right [...] office as previously scheduled. (more content not included)...NormalMetroHealth Parma Medical Centerible sigmoidoscopy studyon 80-14-1958Scmds [facility] Patient Name: Orion Harper Procedure Date: 05/22/2024 1:40 PM Date of : 1990 Admit Type: Outpatient Age: 33 Room: [place] [address] Gender: Female Note Status: Finalized Attending MD: Carol Winn MD, [id number] Procedure: Colonoscopy Indications: Rectal bleeding, Change in [...] verified by the physician, the nurse, the guest relations manager and the veterinary laboratory technician in the procedure room. Mental [...] bowel preparation was evaluated using the BBPS ([place] Bowel Preparation Scale) with scores of: Right [...] rectum were ph (more content not included)...PROVATION [facility]uclid HospitalGastrointestinal pathogens identified SHEILA+probe Nom (Stl)on 60-49-5401Xwohjxfaxghwb sp DNA SHEILA+probe Nom (Unsp spec)Not detectedNormalNot DetectedMercy Health St. Rita's Medical Center on above:Order Comment: Specimen Type: STOOL SPECIMENOrdering Facility: [facility] Address:[address] [place], [place] [address]Performed By: #### 57175-4 ####[facility] LABCLIA [id number] [place] [address] [place] OF AMERICASalmonella sp DNA SHEILA+probe Ql (Unsp spec)Not detected NormalNot DetectedMercy Health St. Rita's Medical Center on above:Order Comment: Specimen Type: STOOL SPECIMENOrdering Facility: [facility] Address:[address] [place], [place] [address]Performed By: #### 16959-1 ####[facility] LABCLIA [id number] [place] [address] [place] AMERICAShiga toxin stx gene SHEILA+probe Nom (Unsp spec)Not detectedNormalNot DetectedMercy Health St. Rita's Medical Center on above:Order Comment: Specimen Type: STOOL SPECIMENOrdering Facility: [facility] Address:[address] [place] [address] Performed By: #### 69405-8 ####[facility] LABCLIA [id number] [place] [address] [place] Shigella sp DNA SHEILA+probe Ql (Unsp spec)Not detectedNormalNot DetectedMercy Health St. Rita's Medical Center on above:Order Comment: Specimen Type: STOOL SPECIMENOrdering Facility: [facility] Address:[address] [place], [place] [address] [id number] By: #### 44612-6 ####[facility] LABCLDELMA [id number] JAGonzalez PANA[place] CITYKELLY [place]XQVZXVJSCURT[place] [address] [place] [facility] HOSPITALHISTORY PHYSICALon 89-27-8733GTTGFND PHYSICALHNO ID: [id number] Author: CAROL WINN MD Service: Gastroenterology Author [...] Harper DATE: May 22, 2024 TIME: 1:39 PMNormalOhiohealth Hardin Memorial HospitalNURSING PROGon 59-67-6952ZWOLZQH PRONO ID: [id number] Author: LINDSEY BUCKLEY RN Service: ? Author [...] By: Lindsey Buckley RN In Department: AMBULATORY SURGERYNoUniversity Hospitals [facility] Panel Informationon 05-22-2024 Radiology Study observation (narrative)[facility] HealthcareSURGICAL PATHOLOGYon 40-23-8391NQDN REPORTNoTriHealth McCullough-Hyde Memorial HospitalComment on above:Order Comment: Specimen Type: TISSUE SPECIMENOrdering Facility: [facility] Address: [address] [place], [place] [address]Result Comment: Surgical Pathology Report Case: [id number] Authorizing Provider: Carol Winn MD Collected: 05/22/2024 02:05 PM Ordering Location: Ambulatory Surgery Received: 05/22/2024 08:39 PM Pathologist: Fe Barnes MD Specimens: A) - Colon, Right, Biopsy, r/o microscopic colitis, r/o inflammation B) - Colon, Left, Biopsy, r/o microscopic colitis, r/o inflammationPerformed By: #### S ####[facility] LABCLIA [id number] [address] DIAGNOSISNormal [facility] on above:Order Comment: Specimen Type: TISSUE SPECIMENOrdering Facility: [facility] Address: [address] [place], [place] [address]Result Comment: A. Colon, right, biopsy: - Colonic mucosa with no significant pathologic change. B. Colon, left, biopsy: - Colonic mucosa with no significant pathologic change. Performed By: #### S ####[facility] LABCLIA [id number] [address] PERFORMING LABNormal [facility] Memorial HospitalComascension providence rochester hospital on above:Order Comment: Specimen Type: TISSUE SPECIMENOrdering Facility: [facility] Address: [address] [place], [place] [address]Result Comment: Diagnostic interpretation performed at: [facility], [address] [place] [address] CLIA# [id number] Charge Coordinator: DULCE Nelsonerformed By: #### S ####[facility] LABCLIA [id number] [address] DESCRIPTIONNoalCCleveland Clinic Union Hospital Comment on above:Order Comment: Specimen Type: TISSUE SPECIMENOrdering Facility: [facility] Address: [address] [place], [place] [address]Result Comment: A. Colon, Right, Biopsy Received in [...] 2024 10:34 PM Gross examination performed at [place] [address] [place], [place] [address]Performed By: #### S ####[facility] LABCLIA [id number] [facility]ENTERDESK [id number] [place] [id number] [place] XR Ankle - right 3 Viewson 29-51-9642Xhnsqbt Result: XRAY: Three views were taken today AP/MORT/LAT Ankle: No fractures or dislocations seen no spurring noted at the lateral ankle ligament complex noted as reported on the [facility] WauwatosaRadiology Study observation (narrative)Research [facility] HospitalALL CBC WITH AUTO DIFFon 05-08-2024 BASOPHILS ABSOLUTE CTCH4EIWU HealthcareBasophils/100 WBC (Bld)0.4 %0.2 - 2.0 % [facility] HospitalEosinophils/100 WBC (Bld)2.2 %0.9 - 7.0 %[facility] Erythrocyte distribution width (RBC) [Ratio]12.9 %11.0 - 15.0 %[facility] Hematocrit (Bld) [Volume fraction]41.2 %36.0 - 48.0 %[facility] HospitalHemoglobin (Bld) [Mass/Vol]13.8 g/dL12.0 - 16.0 g/dLResearch Belton HospitalIMMATURE GRANULOCYTES ABS AUTO0.19HighResearch Belton HospitalImmature granulocytes/100 WBC (Bld)1.9 %High0.0 - 0.5 %[facility] HospitalInterpretation and review of laboratory resultsAbnormalResearch Belton HospitalLYMPHOCYTES ABSOLUTE ZKMN8OJRYNorthwest Medical CenterLymphocytes/100 WBC (Bld) 30.1 %20.5 - 60.0 %[facility] Medical CenterH (RBC) [Entitic mass]32.7 pg26.7 - 34.0 pg [facility] Medical CenterHC (RBC) [Mass/Vol]33.5 g/dL29.9 - 35.2 g/dLCameron Regional Medical CenterV (RBC) [Entitic vol]97.6 fL81.0 - 99.0 fLResearch Belton HospitalMONOCYTES ABSOLUTE AUTO 0.7NOAZ HealthcareMonocytes/100 WBC (Bld)6.6 %1.7 - 12.0 %[facility] NEUTROPHILS ABSOLUTE AUTO5.8NOMS HealthcareNeutrophils/100 WBC (Bld)58.8 %43.0 - 75.0 %NOMS HealthcarePlatelet mean volume (Bld) [Entitic vol]10.8 fL9.5 - 13.5 fLNOAZ HealthcareTB EO #0.2NOMS HealthcareTB DNS423XMIC HealthcareTB RBC4.22 NOMS HealthcareTB WBC9.9NOMS HealthcareCLINISYNCNAMG SPECIALTY [facility] HealthcareCNPNon 53-19-3469PUPDAdidxkzbo (CARDMN) ORION HARPER ([id number]) 1990 F Date Time Provider Department 05/06/24 SOLO CARTYMN During your visit today, we recorded the following information about you: Criss Mccrary 05/06/2024 1:41 PM Signed Echo was faxed to Anne-Marie @ [phone] AND scanned into outside ep. Patient is [...] 11/02/2022 Encounter Status:Closed by CRISS MCCRARY on 05/06/24[facility] Cervical spine WO contraston 22-80-7702[place] [address] Magnetic Resonance Report Signed Patient: ORION HARPER MR#: [id number] : 1990 Acct:[id number] Age/Sex: 33 / F ADM Date: 05/03/24 Loc: MRI Attending Dr: SANDY HAMMOND Ordering Physician: SANDY HAMMOND Date of Service: 05/03/24 Procedure(s): MR cervical spine wo con Accession Number(s): [id number] cc: GIOVANI HAGEN ; SANDY HAMMOND [place] [id number] Patient Name: ORION HARPER MRN: [id number] date: 1990 Sex: F Assigned Patient Location: MRI Current Patient Location: MRI Accession/Order Number: [id number] Exam Date: 05/03/2024 14:00 Report Date: 05/03/2024 [...] Signed By: 05/03/24 1604 DD/ 1601 TD/TT: Docket Clerk:TBHRadiology, Radiologist, - 05/03/2024 [place] [id number] Magnetic Resonance Report Signed Patient: ORION HARPER MR#: [id number] : 1990 Acct:[id number] Age/Sex: 33 / F ADM Date: 05/03/24 Loc: MRI Attending Dr: SANDY HAMMOND Ordering Physician: SANDY HAMMOND Date of Service: 05/03/24 Procedure(s): MR cervical spine wo con Accession Number(s): [id number] cc: GIOVANI HAGEN KAREN M [address] [address] Patient Name: ORION HARPER MRN: [id number] date: 1990 Sex: F Assigned Patient Location: MRI Current Patient Location: MRI Accession/Order Number: [id number] Exam Date: 05/03/2024 14:00 Report Date: 05/03/2024 [...] Signed By: 05/03/24 1604 DD/ 1601 TD/TT: Docket Clerk: [facility] HealthcareRadiology Study observation (narrative)[facility] Cervical spine WO contrastOrdered By: Radiologist Radiology on 60-17-0838GPGOResearch Belton Hospital Work Phone: Liver ultrasound attenuation by transient elastography on 58-95-1742Hxwusgkcu Report Date performed: May 02, 2024 Performed [...] and referral to hepatology. Zehra Gray PA-C [facility] Fibroscan Fibrosis Risk <7 kPA = [...] S3: > 66% steatosis) Reference Glynn Y, Fan Q, Glynn T, Gifty J, Glynn H, Carpio T. Controlled attenuation parameter for assessment of hepatic steatosis grades: a diagnostic meta-analysis. Int J Clin Exp Med. 2015 Jan 15;8(10):50339-27.PMID: 70589374; PMCID: TDY7311856. Ruthann Bob, Juan MEEK, Rico M, Cosmo F, Tawnya J, Everardo O, Leyla F, Franci Bob, Alejandro G, Dorie A, Gianna E, Leyla L, French G, Kashmir A, Vicente U, Jodi S, Jordan, Max V, Last V, Leena M, Neo MARIE. Refining the Baveno elastography criteria for the definition of compensated advanced chronic liver disease. J Hepatol. 2020;74(5):3850-8896. doi: 10.1016/j.jhep.2020.11.050. Epub 2019Apr 01. PMID: 47957364. Izabel Bob, Chastity B, Martha Bob, Xiao M, Joon S, Nuria Roth, Trevin Roth, Trixie Kendrick.AASLD practice guidance on the clinical assessment and management of nonalcoholic fatty liver disease. Hepatology. 2022;77(5):1797- 1835. doi:10.1097/HEP.5951381893774508GlvmfdehbOhioHealth Nelsonville Health Center ClinicRadiology Study observation (narrative)[facility] HospitalRadiology Study observation (narrative)[facility]uclid HospitalA1AT SerPl-mCncon 24-91-9495Epmoj 1 antitrypsin [Mass/Vol]123 mg/lBIdzqej73-493Uliz HospitalComment on above:Order Comment: Specimen Type: BLOOD SPECIMEN [facility] Address: [address] [place], [place] [address]Performed By: #### 1825-9, 2064-4 #### [facility] CLIA [id number] [address] [place] [address] STATES OF AMERICAAFP SerPl-mCncon 04-26-2024 AFP [Mass/Vol]3.01 ng/mLNormal<9.00Avon HospitalComment on above:Order Comment: Specimen Type: BLOOD SPECIMEN [facility] Address: [address] [place], [place] [address]Result Comment: The Alpha- Fetoprotein test was performed using the Sage Unicel DxI immunoenzymatic assay. Results obtained with different assay methods or kits cannot be used interchangeably.Performed By: #### 1834-1 #### [facility] CLIA [id number] [address] [place] [address] [place] AMERICAANA BY IFA WITH REFLEXon 22-49-8755Uwndzqv Ab Ql (S)NegativeNormalNegativeAvon HospitalComment on above: Order Comment: Specimen Type: BLOOD SPECIMEN [facility] Address: [address] [place], [place] [address]Result Comment: Anti-nuclear antibody test is used as an aid in diagnosis of systemic autoimmune diseases. Where positive and clinically warranted, follow-up using disease-specific testing is recommended. Low positive titers are not uncommon with advanced age, certain chronic infections, and malignancies among others. Test methodology: Indirect fluorescence immunoassay (IFA) using HEp-2 cells. Performed By: #### ANAIFR #### [facility] CLIA [id number] [address] [place] [address] W Auto Differential panel (Bld)on 26-17-9482Liucpeplo (Bld) [#/Vol]0.06 10*3/uLNINFCleveland Clinic Euclid Hospital Differential cell count method Nom (Bld)AutoCleveland ClinicEosinophils (Bld) [#/Vol]NINFCleveland ClinicImmature granulocytes (Bld) [#/Vol]0.33 10*3/uLHigh NINFCleveland ClinicImmature granulocytes/100 WBC (Bld)2.7 %[facility] Lymphocytes (Bld) [#/Vol]2.80 10*3/uLCleveland Clinic Euclid HospitalMCH (RBC) [Entitic mass] 32.0 pg26.0 - 34.0 pgCleveland ClinicMonocytes (Bld) [#/Vol]0.41 10*3/uLNINF [facility] Euclid HospitalNeutrophils (Bld) [#/Vol]8.78 10*3/uLHighCleveland Clinic Euclid Hospital Nucleated RBC (Bld) [#/Vol]NINFCleveland ClinicNucleated RBC/100 WBC (Bld) [Ratio]0.0 %/100 WBCCleveland Clinic Euclid HospitalPlatelet mean volume (Bld) [Entitic vol]10.8 fL9.0 - 12.7 fLCleveland ClinicPlatelets (Bld) [#/Vol]271 10*3/uLCleveland ClinicWBC (Bld) [#/Vol]12.39 10*3/uLHighCleveland ClinicBasophils (Bld) [#/Vol] 0.06 10*3/uLNormal<0.11Avon HospitalComment on above:Order Comment: Specimen Type: BLOOD SPECIMEN [facility] Address: [address] [place], [place] [address]Performed By: #### 1825-9, 2063-07 #### [facility] CLIA [id number] [address] [place] [address] [place] AMERICABasophils/100 WBC (Bld)0.5 % NormalAvon HospitalComment on above:Order Comment: Specimen Type: BLOOD SPECIMEN [facility] Address: [address] [place], [place] [address]Performed By: #### 1825-9, 2063-07 #### [facility] CLIA [id number] [address] [place] [address] [place] AMERICADifferential cell count method Nom (Bld)AutoNormalAvon HospitalComment on above:Order Comment: Specimen Type: BLOOD SPECIMEN [facility] Address: [address] [place], [place] [address]Performed By: #### 1825-9, 2063-07 #### [facility] CLIA [id number] [address] [place] [address] [place] AMERICAEosinophils (Bld) [#/Vol] 10*3/uLNormal<0.46Avon HospitalComment on above:Order Comment: Specimen Type: BLOOD SPECIMEN [facility] Address: [address] [place], [place] [address]Performed By: #### 1825-9, 2063-07 #### [facility] CLIA [id number] [address] [place] [address] [place] AMERICAEosinophils/100 WBC (Bld)0.1 %NormalAv HospitalComment on above:Order Comment: Specimen Type: BLOOD SPECIMEN [facility] Address: [address] [place], [place] [address]Performed By: #### 1825-9, 2063-07 #### [facility] CLIA [id number] [address] [place] [address] [place] AMERICAErythrocyte distribution width (RBC) [Ratio]12.5 %Aaixwc03.5-15.0Avon HospitalComment on above:Order Comment: Specimen Type: BLOOD SPECIMEN [facility] Address: [address] [place], [place] [address]Performed By: #### 1825-9, 2063-07 #### [facility] CLIA [id number] [address] [place] [address] [place] AMERICAHematocrit (Bld) [Volume fraction]46.1 %High36.0-46.0Av HospitalComment on above:Order Comment: Specimen Type: BLOOD SPECIMEN [facility] Address: [address] [place], [place] [address]Performed By: #### 1825-9, 2063-07 #### [facility] CLIA [id number] [address] [place] [address] [place] AMERICAHemoglobin (Bld) [Mass/Vol] 15.5 g/hKSyfuwl50.5-15.5Avon HospitalComment on above:Order Comment: Specimen Type: BLOOD SPECIMEN [facility] Address: [address] [place], [place] [address]Performed By: #### 1825-9, 2063-07 #### [facility] CLIA [id number] [address] [place] [address] [place] AMERICAImmature granulocytes (Bld) [#/Vol]0.33 10*3/uLHigh<0.10Avon HospitalComment on above:Order Comment: Specimen Type: BLOOD SPECIMEN [facility] Address: [address] [place], [place] [address]Performed By: #### 1825-9, 2063-07 #### [facility] CLIA [id number] [address] [place] [address] [place] AMERICAImmature granulocytes/100 WBC (Bld)2.7 %NormalAvon HospitalComment on above:Order Comment: Specimen Type: BLOOD SPECIMEN [facility] Address: [address] [place], [place] [address]Performed By: #### 1825-9, 2063-07 #### [facility] CLIA [id number] [address] [place] [address] [place] AMERICALymphocytes (Bld) [#/Vol] 2.80 10*3/uLNormal1.00-4.00Avon HospitalComment on above:Order Comment: Specimen Type: BLOOD SPECIMEN [facility] Address: [address] [place], [place] [address]Performed By: #### 1825-9, 2063-07 #### [facility] CLIA [id number] [address] [place], [place] [address] [place] OF AMERICALymphocytes/100 WBC (Bld) 22.6 %NormalAvon HospitalComment on above:Order Comment: Specimen Type: BLOOD SPECIMEN [facility] Address: [address] [place], [place] [address]Performed By: #### 1825-9, 2063-07 #### [facility] CLIA [id number] [address] [place], [place] [address] [place] OF AMERICAMCH (RBC) [Entitic mass]32.0 wyUtiswj27.0-34.0Avon HospitalComment on above:Order Comment: Specimen Type: BLOOD SPECIMEN [facility] Address: [address] [place], [place] [address]Performed By: #### 1825-9, 2063-07 #### [facility] CLIA [id number] [address] [place], [place] [address]MCHC (RBC) [Mass/Vol]33.6 g/xIDpsiib21.5-36.0Avon HospitalComment on above:Order Comment: Specimen Type: BLOOD SPECIMEN [facility] Address: [address] [place], [place] [address]Performed By: #### 1825-9, 2063-07 #### [facility] CLIA [id number] [address] [place], [place] [address]MCV (RBC) [Entitic vol]95.1 nBFtvcvj73.0-100.0Avon HospitalComment on above:Order Comment: Specimen Type: BLOOD SPECIMEN [facility] Address: [address] [place], [place] [address]Performed By: #### 1825-9, 2063-07 #### [facility] CLIA [id number] [address] [place] [address] [place] AMERICAMonocytes (Bld) [#/Vol]0.41 10*3/uLNormal<0.87Avon HospitalComment on above:Order Comment: Specimen Type: BLOOD SPECIMEN [facility] Address: [address] [place], [place] [address]Performed By: #### 18259, 2063-07 #### [facility] CLIA [id number] [address] [place] [address] [place] AMERICAMonocytes/100 WBC (Bld)3.3 % NormalAvon HospitalComment on above:Order Comment: Specimen Type: BLOOD SPECIMEN [facility] Address: [address] [place], [place] [address]Performed By: #### 1825-9, 2063-07 #### [facility] CLIA [id number] [address] [place] [address] [place] AMERICANeutrophils (Bld) [#/Vol] 8.78 10*3/uLHigh1.45-7.50Av HospitalComment on above:Order Comment: Specimen Type: BLOOD SPECIMEN [facility] Address: [address] [place], [place] [address]Performed By: #### 1825-9, 2063-07 #### [facility] CLIA [id number] [address] [place] [address] [place] AMERICANeutrophils/100 WBC (Bld) 70.8 %NormalAv HospitalComment on above:Order Comment: Specimen Type: BLOOD SPECIMEN [facility] Address: [address] [place], [place] [address]Performed By: #### 1825-9, 2063-07 #### [facility] CLIA [id number] [address] [place] [address] [place] AMERICANucleated RBC (Bld) [#/Vol] 10*3/uLNormal<0.01Av HospitalComment on above:Order Comment: Specimen Type: BLOOD SPECIMEN [facility] Address: [address] [place], [place] [address]Performed By: #### 1825-9, 2063-07 #### [facility] CLIA [id number] [address] [place] [address] [place] AMERICANucleated RBC/100 WBC (Bld) [Ratio]0.0 /100 WBCNormalAvon HospitalComment on above:Order Comment: Specimen Type: BLOOD SPECIMEN [facility] Address: [address] [place], [place] [address]Performed By: #### 1825-9, 2063-07 #### [facility] CLIA [id number] [address] [place] [address] [place] AMERICAPlatelet mean volume (Bld) [Entitic vol]10.8 fLNormal9.0-12.7Avon HospitalComment on above:Order Comment: Specimen Type: BLOOD SPECIMEN [facility] Address: [address] [place], [place] [address]Performed By: #### 1825-9, 2063-07 #### [facility] CLIA [id number] [address] [place] [address] UNITED [facility] AMERICAPlatelets (Bld) [#/Vol]271 10*3/wZPqtoue998-666Ujpl HospitalComment on above:Order Comment: Specimen Type: BLOOD SPECIMEN [facility] Address: [address] [place], [place] [address]Performed By: #### 1825-9, 2063-07 #### [facility] CLIA [id number] [address] [place], [place] [address]RB (Bld) [#/Vol]4.85 10*6/uLNormal3.90-5.20Av HospitalComment on above:Order Comment: Specimen Type: BLOOD SPECIMEN [facility] Address: [address] [place], [place] [address]Performed By: #### 1825-9, 2063-07 #### [facility] CLIA [id number] [address] [place], [place] [address]WBC (Bld) [#/Vol]12.39 10*3/uLHigh3.70-11.00Av HospitalComment on above:Order Comment: Specimen Type: BLOOD SPECIMEN [facility] Address: [address] [place], [place] [address]Performed By: #### 1825-9, 2063-07 #### [facility] CLIA [id number] [address] [place] [address] [facility] OF AMERICACC CBC W AUTO DIFF BLDon 85-04-0591KZA BASOPHILS # BLD AUTO0.06NINFNOMS HealthcareCCF DIFFERENTIAL METHOD BLDAutoNOMS HealthcareCCF EOSINOPHIL # BLD AUTO<0.03NINFSaint John's Health SystemF LYMPHOCYTES # BLD AUTO2.8NOMS TriHealthF MONOCYTES # BLD AUTO0.41NINFSaint John's Health SystemF NEUTROPHILS # BLD AUTO8.78HighNOLee's Summit HospitalF NRBC # BLD AUTO <0.01NINFCox [place]nut Lawn NRBC/100 WBC BLD-RTO0/100 WBCCox Walnut Lawn PLATELET # BLD CTLM829IWLUHannibal Regional Hospital PMV BLD AUTO10.8 fL9.0 - 12.7 fLNOHannibal Regional Hospital WBC # BLD AUTO12.39HighNONorthwest Medical CenterIM GRANULOCYTES # BLD AUTO 0.33HighNINFFitzgibbon Hospital GRANULOCYTES/LEUK NFR BLD AUTO2.7 %[facility] (RBC) [Entitic mass]32 pg26.0 - 34.0 pgNOMS HealthcareSpecimen Type: BLOOD SPECIMEN [facility] Address: [address] [place] [address] Original Ordering Provider: ILIANA Zavala [id number] Visit (TANI) ORION HARPER ([id number]) 1990 F Date Time Provider Department 04/26/24 [...] do not hesitate to send me a Holidu message or call. FARNAZ Mohr Lauren, PA-C [...] she saw Dr. Hylton in 2021 in [facility]. 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 Hylton who is guest specialist We discussed seeing endocrinology to help [...] to home (ambulatory). Colonosc (more content not included)...[facility] ORION HARPER ([id number]) 1990 F Date Time Provider Department 04/26/24 [...] decision making and plan (more content not included)...Normal[facility] Ceruloplasmin SerPl-mCncon 81-47-2089Gwszctkacvgrj [Mass/Vol]27 mg/uUXqguvm09-11 [facility] CenterComment on above:Order Comment: Specimen Type: BLOOD SPECIMEN [facility] Address: [address] [place], [place] [address]Performed By: #### 1825-9, 2064-4 #### [facility] CLIA [id number] [address] [place] [address] [place] OF AMERICAComprehensive metabolic 2000 panelon 32-26-7458Mvyhfgi [Mass/Vol]4.7 g/dL3.9 - 4.9 g/dLAlton ClinicALP [Catalytic activity/Vol]144 U/LHigh34 - 123 U/LClevelcone health ClinicALT [Catalytic activity/Vol]192 U/LHigh7 - 38 U/LCleveland ClinicAnion gap [Moles/Vol]13 mmol/L 8 - 15 mmol/LCleveland ClinicAST [Catalytic activity/Vol]99 U/LHigh13 - 35 U/L [facility] HospitalBilirubin [Mass/Vol]0.3 mg/dL0.2 - 1.3 mg/dLCleveland Clinic [facility]ucl[facility] Hospital Calcium [Mass/Vol]9.2 mg/dL8.5 - 10.2 mg/dLCleveland Clinic Euclid HospitalChloride [Moles/Vol] 100 mmol/L98 - 107 mmol/LCleveland ClinicCO2 [Moles/Vol]25 mmol/L22 - 30 mmol/L [facility] HospitalCreatinine [Mass/Vol]0.58 mg/dL0.58 - 0.96 mg/dLCleveland Clinic [facility]ucl[facility] Hospital GFR/1.73 sq M.predicted among non-blacks MDRD (S/P/Bld) [Vol rate/Area]121 mL/min/{1.73_m2}- PINFCgeorgetown behavioral hospital ClinicComment on above:Estimated Glomerular Filtration Rate (eGFR) is [...] actual GFR.Glucose [Mass/Vol]95 mg/dL74 - 99 mg/dL [facility] Euclid HospitalComment on above:The Tristanian Diabetes Association (ADA) provides guidance for cutoff [...] Standards of Medical Care in Diabetes 2016, [place] Diabetes Association. Diabetes Care. 2016.39(Suppl 1). Interpretation and review of laboratory resultsAbnormalCleveland ClinicPotassium [Moles/Vol]4.0 mmol/L3.7 - 5.1 mmol/LCleveland ClinicProtein [Mass/Vol]8.0 g/dL 6.3 - 8.0 g/dLAlton ClinicSodium [Moles/Vol]138 mmol/L136 - 144 mmol/L [facility] HospitalUrea nitrogen [Mass/Vol]12 mg/dL7 - 21 mg/dLCleveland Clinic [facility] Albumin [Mass/Vol]4.7 g/dLNormal3.9-4.9Avon HospitalComment on above:Order Comment: Specimen Type: BLOOD SPECIMEN [facility] Address: [address] [place], [place] [address]Performed By: #### 1825-9, 2063-07 #### [facility] CLIA [id number] [address] [place] [address] [place] OF AMERICAALP [Catalytic activity/Vol] 144 U/MHbxo91-311Hrcj HospitalComment on above:Order Comment: Specimen Type: BLOOD SPECIMEN [facility] Address: [address] [place], [place] [address]Performed By: #### 1825-9, 2063-07 #### [facility] CLIA [id number] [address] [place], [place] [address] [place] OF AMERICAALT [Catalytic activity/Vol] 192 U/LHigh7-38Avon HospitalComment on above:Order Comment: Specimen Type: BLOOD SPECIMEN [facility] Address: [address] [place], [place] [address]Performed By: #### 1825-9, 2063-07 #### [facility] CLIA [id number] [address] [place], [place] [address] [place] OF AMERICAAnion gap [Moles/Vol]13 mmol/LNormal8-15Avon HospitalComment on above:Order Comment: Specimen Type: BLOOD SPECIMEN [facility] Address: [address] [place] [address]Lbhxfmlyw By: #### 1825-9, 2063-07 #### [facility] CLIA [id number] [address] [place] [address] [place] OF AMERICAAST [Catalytic activity/Vol] 99 U/UKhin24-66Qohl HospitalComment on above:Order Comment: Specimen Type: BLOOD SPECIMEN [facility] Address: [address] [place], [place] [address]Performed By: #### 1825-9, 2063-07 #### [facility] CLIA [id number] [address] [place] [address] [place] OF AMERICABilirubin [Mass/Vol]0.3 mg/dLNormal0.2-1.3Avon HospitalComment on above:Order Comment: Specimen Type: BLOOD SPECIMEN [facility] Address: [address] [place], [place] [address]Performed By: #### 1825-9, 2063-07 #### [facility] CLIA [id number] [address] [place] [address] [place] OF AMERICACalcium [Mass/Vol]9.2 mg/dL Normal8.5-10.2Avon HospitalComment on above:Order Comment: Specimen Type: BLOOD SPECIMEN [facility] Address: [address] [place], [place] [address]Performed By: #### 1825-9, 2063-07 #### [facility] CLIA [id number] [address] [place] [address] [place] OF AMERICAChloride [Moles/Vol]100 mmol/RYdbghj10-977Hviu HospitalComment on above:Order Comment: Specimen Type: BLOOD SPECIMEN [facility] Address: [address] [place], [place] [address]Performed By: #### 1825-9, 2063-07 #### [facility] CLIA [id number] [address] [place] [address] [place] OF AMERICACO2 [Moles/Vol]25 mmol/L Ijgyeh38-46Qriv HospitalComment on above:Order Comment: Specimen Type: BLOOD SPECIMEN [facility] Address: [address] [place] [address]Cmiknnzzb By: #### 1825-9, 2063-07 #### [facility] CLIA [id number] [address] [place] [address] [place] AMERICACreatinine [Mass/Vol]0.58 mg/dLNormal0.58-0.96Avon HospitalComment on above:Order Comment: Specimen Type: BLOOD SPECIMEN [facility] Address: [address] [place] [address]Dtomxpssi By: #### 1825-9, 2063-07 #### [facility] CLIA [id number] [address] [place] [address] [place] AMERICACreatinine and Glomerular filtration rate.predicted panel (S/P/Bld)121 mL/min/1.73m???Normal>=60AvKing's Daughters Hospital and Health ServicesComment on above:Order Comment: Specimen Type: BLOOD SPECIMEN [facility] Address: [address] [place], [place] [address]Result Comment: Estimated Glomerular Filtration Rate (eGFR) is [...] actual GFR.Performed By: #### 1825-9, 2063-07 #### [facility] CLIA [id number] [address] [place] [address] [place] AMERICAGlucose [Mass/Vol]95 mg/dL Ktujcn99-68Jsnt HospitalComment on above:Order Comment: Specimen Type: BLOOD SPECIMEN [facility] Address: [address] [place] [address]Xoqrez Comment: The Tristan[place] Diabetes Association (ADA) provides guidance for cutoff [...] Standards of Medical Care in Diabetes 2016, [place] Diabetes Association. Diabetes Care. 2016.39(Suppl 1).Performed By: #### 1825-9, 2063-07 #### [facility] CLIA [id number] [address] [place] [address] [place] AMERICAPotassium [Moles/Vol]4.0 mmol/LNormal3.7-5.1Avon HospitalComment on above:Order Comment: Specimen Type: BLOOD SPECIMEN [facility] Address: [address] [place], [place] [address]Performed By: #### 1825-9, 2063-07 #### [facility] CLIA [id number] [address] [place] [address] [place] OF AMERICAProtein [Mass/Vol]8.0 g/dL Normal6.3-8.0Av HospitalComment on above:Order Comment: Specimen Type: BLOOD SPECIMEN [facility] Address: [address] [place], [place] [address]Performed By: #### 1825-9, 2063-07 #### [facility] CLIA [id number] [address] [place] [address] [place] AMERICASodium [Moles/Vol]138 mmol/L Kvuitk410-098Kkuc HospitalComment on above:Order Comment: Specimen Type: BLOOD SPECIMEN [facility] Address: [address] [place], [place] [address]Performed By: #### 1825-9, 2063-07 #### [facility] CLIA [id number] [address] [place] [address] [place] OF AMERICAUrea nitrogen [Mass/Vol]12 mg/dLNormal7-21Avon HospitalComment on above:Order Comment: Specimen Type: BLOOD SPECIMEN [facility] Address: [address] [place], [place] [address]Performed By: #### 1825-9, 2063-07 #### [facility] CLIA [id number] [address] [place] [address] [place] AMERICAFERRITINon 04-26-2024 Ferritin [Mass/Vol]420.9 ng/fFSami03.7 - 205.1 ng/mLCleveland ClinicFerritin SerPl-mCncon 10-65-0045Pwlzctvp [Mass/Vol]420.9 ng/mXWoec86.7-205.1[facility] Comment on above:Order Comment: Specimen Type: BLOOD SPECIMEN [facility] Address: [address] [place], [place] [address]Performed By: #### 1825-9, 2064-4 #### [facility] CLIA [id number] [address] [place] [address] [place] AMERICAFerritin [Mass/Vol]on 81-78-6182Mkjeuvgzpwibyu and review of laboratory resultsAbnormalCleveland Paulding County HospitalHAV IgM Ser Qlon 26-89-0726LKR IgM Ql (S)NegativeNormal NegativeAvon HospitalComment on above:Order Comment: Specimen Type: BLOOD SPECIMEN [facility] Address: [address] [place], [place] [address]Result Comment: No evidence of recent infection with Hepatitis A virus.Performed By: #### 81209-0, 95831-5, 5195-3 #### [facility] CLIA [id number] [address] [place] [address] [place] OF AMERICAHBV core IgM Ser Qlon 36-01-6719FJS core IgM Ql (S)NegativeNormalNegativeAvon HospitalComment on above:Order Comment: Specimen Type: BLOOD SPECIMEN [facility] Address: [address] [place], [place] [address]Result Comment: No evidence of recent infection with Hepatitis B virus. Should recent infection be suspected, repeat testing may be considered 3-4 weeks after this draw.Performed By: #### 64369-2, 10288-4, 5195-3 #### [facility] CLIA [id number] [address] [place] [address] [place] AMERICAHBV surface Ag Ser Qlon 39-47-5477HAW surface Ag Ql (S)NegativeNormalNegativeAvon HospitalComment on above:Order Comment: Specimen Type: BLOOD SPECIMEN [facility] Address: [address] [place], [place] [address]Performed By: #### 1825-9, 2063-07 #### [facility] CLIA [id number] [address] [place] [address] [place] AMERICAHCV Ab Ser Qlon 04-26-2024 HCV Ab Ql (S)NegativeNormalNegativeAvon HospitalComment on above:Order Comment: Specimen Type: BLOOD SPECIMEN [facility] Address: [address] [place], [place] [address]Result Comment: The result suggests no evidence of active infection with Hepatitis C virus. Should recent infection be suspected, repeat testing may be considered 4-6 weeks after this draw. Performed By: #### 07533-4 #### [facility] CLIA [id number] [address] [place] [address] [place] AMERICAIron and Iron binding capacity panelon 42-16-0065Hivzptwdtyadcg and review of laboratory resultsNormal Alton ClinicIron [Mass/Vol]105 ug/dL41 - 186 ug/dLAlton ClinicIron binding capacity [Mass/Vol]340 ug/dL232 - 386 ug/dLClebethesda north hospital ClinicIron/TIBC [Molar ratio]30.9 %15.0 - 57.0 %Alton ClinicIron [Mass/Vol]105 ug/dLNormal 41-186Avon HospitalComment on above:Order Comment: Specimen Type: BLOOD SPECIMEN [facility] Address: [address] [place], [place] [address]Performed By: #### 1825-9, 2063-07 #### [facility] CLIA [id number] [address] [place] [address] [place] AMERICAIron binding capacity [Mass/Vol]340 ug/zFAsceko106-147Psmt HospitalComment on above:Order Comment: Specimen Type: BLOOD SPECIMEN [facility] Address: [address] [place], [place] [address]Performed By: #### 1825-9, 2063-07 #### [facility] CLIA [id number] [address] [place] [address] OF [facility] CIT[facility]ENS HOSPITALIron/TIBC [Molar ratio]30.9 %Dhusct62.0-57.0Avon HospitalComment on above:Order Comment: Specimen Type: BLOOD SPECIMEN [facility] Address: [address] [place], [place] [address]Performed By: #### 1825-9, 2063-07 #### [facility] CLIA [id number] [address] [place], [place] [address]Laboratory - Hematology and Cell countson 18-28-2208Dspcujvdl/100 WBC (Bld)0.5 %[facility] Eosinophils/100 WBC (Bld)0.1 %[facility] HealthcareErythrocyte distribution width (RBC) [Ratio]12.5 %11.5 - 15.0 %[facility] HealthcareHematocrit (Bld) [Volume fraction]46.1 %High36.0 - 46.0 %[facility] HealthcareHemoglobin (Bld) [Mass/Vol]15.5 g/dL11.5 - 15.5 g/dLNOMS HealthcareLymphocytes/100 WBC (Bld)22.6 %[facility] HealthcareMCHC (RBC) [Mass/Vol]33.6 g/dL30.5 - 36.0 g/dLNOMS HealthcareMCV (RBC) [Entitic vol]95.1 fL80.0 - 100.0 fLNOMS HealthcareMonocytes/100 WBC (Bld)3.3 % [facility] HealthcareNeutrophils/100 WBC (Bld)70.8 %[facility] HealthcareRBC (Bld) [#/Vol] 4.85 10*6/uL3.90 - 5.20 m/uLNOMS HealthcareMitochondria Ab IF Ql (S)on 73-46-5677Ceibvkuwgfnz M2 Ab IA Qn (S)2.8 UnitsNormal<=20.0Avon HospitalComment on above:Order Comment: Specimen Type: BLOOD SPECIMEN [facility] Address: [address] [place], [place] [address]Performed By: #### 1825-9, 2063-07 #### [facility] CLIA [id number] [address] [place] [address] [place] AMERICAMitochondria M2 Ab Ql (S) NegativeNormalNegativeAvon HospitalComment on above:Order Comment: Specimen Type: BLOOD SPECIMEN [facility] Address: [address] [place], [place] [address]Result Comment: Anti-mitochondrial antibody test is used as an aid in diagnosis of primary biliary cholangitis. Clinical correlation is required.Performed By: #### 18259, 2063-07 #### [facility] CLIA [id number] [address] [place] [address] OF AMERICANo Panel Informationon 77-88-5052Mhmkrmnct ClinicInterpretation and review of laboratory results AbnormalNONorthwest Medical CenterNOAZ HealthcarePT panel Coag (PPP)on 32-93-7319KLF Coag (PPP) [Relative time]0.9 {INR}0.9 - 1.3Cleveland ClinicComment on above:Vitamin K Antagonist (VKA) Therapeutic Range: INR 2 to 3 (Target INR of 2.5) Note: For patients treated with VKA drugs, such as warfarin, the [place] College [employer] 2012 Guideline recommends [...] Chest 2012, 141:7S-47S Lit RA, et al. [facility] 2017, 70: 252-289 Interpretation and review of laboratory resultsNormalCPremier Health Miami Valley Hospital SouthPT Coag (PPP) [Time]10.6 [facility] ClinicINR Coag (PPP) [Relative time] 0.9 {INR}Normal0.9-1.3[facility] HospitalComment on above:Order Comment: Specimen Type: BLOOD SPECIMEN [facility] Address: [address] [place], [place] [address]Zfcdvs Comment: Vitamin K Antagonist (VKA) Therapeutic Range: INR 2 to 3 (Target INR of 2.5) Note: For patients treated with VKA drugs, such as warfarin, the [employer] [employer] of Chest [employer] 2012 Guideline recommends [...] Linda GH, et al. Chest 2012, 141:7S-47S iLt SALVADOR et al. [facility] 2017, 70: 252-289Performed By: #### 21550-4 #### [facility] CLIA [id number] [address] [place] [address] [place] [facility]IZENS HOSPITALPT Coag (PPP) [Time]10.6 sNormal9.7-13.0 [facility] HospitalComment on above:Order Comment: Specimen Type: BLOOD SPECIMEN [facility] Address: [address] [place], [place] [address]Fvhdqgvhn By: #### 33005-2 #### [facility] CLIA [id number] [address] [place] [address] [facility] HOSPITALSmooth muscle Ab Ql (S)on 96-80-2646HOCIF SMOOTH MUSCLE IGG QUALITATIVENegativeNormalNegativeSewanee HospitalComment on above:Order Comment: Specimen Type: BLOOD SPECIMEN [facility] Address: [address] [place], [place] [address]Performed By: #### 1825-9, 2063-07 #### [facility] CLIA [id number] [address] [place] [address] [place] AMERICAACTIN SMOOTH MUSCLE IGG QUANTITATIVE5 UnitsNormal<20Avon HospitalComment on above:Order Comment: Specimen Type: BLOOD SPECIMEN [facility] Address: [address] [place], [place] [address]Performed By: #### 1825-9, 2063-07 #### [facility] CLIA [id number] [address] [place] [address] OF [facility] CITIZENS HOSPITALECHOon 04-09-2024 EchocardiographyEchocardiography Report: Transthoracic Echo [facility] Date of service: 04/09/2024 3:28:57 PM Ordering physician: SOLO CARTY Indication: Syncope Technologist: Josephine West [facility] Interpreting physician: Sheri Ac MD [...] * * Final * * * CC [employer] : [id number]l Euclid HospitalCNPNon 11-90-6138XBIYMialnzpqq (CARDMN) ORION HARPER ([id number]) 1990 F Date Time Provider Department 04/05/24 SOLO CARTY During your visit today, we recorded the following information about you: Criss Mccrary 04/05/2024 1:02 PM Signed Outside ep I have a copy @ my desk Criss Velez 04/09/2024 11:49 AM Signed April 09, 2024 Patient Contact Number: [phone] Patient last seen within the last year: Yes 12/15 Reason For Call: Test Results [facility]- 12/2023 Physician: Dr. Carty Patient was informed that non-urgent calls may be returned within the next three business days. Yes Joy Dahl RN 04/09/2024 2:14 PM Signed Cardiac clearance and office noted faxed to [facility]. In regards to Zio monitor. Dr Carty [...] Medical Records [3576] Cmt: Cardio Clearance [facility] Athena Results [95] Cmt: Zio Prescriptions as of [...] 11/02/2022 Encounter Status:Closed by CRISS MCCRARY on 04/05/24[facility] HospitalHEMOGLOBIN A1con 60-42-6355GYSCGMTAED A1c5.5 % of total Hgb Normal<5.7Quest DiagnosticsComment [...] diagnosis of diabetes in children. According to [place] Diabetes Association (ADA) guidelines, hemoglobin A1c <7.0% represents optimal control in non- diabetic patients. Different metrics may apply to specific patient populations. Standards of Medical Care in Diabetes(ADA).Performed By: #### 916 733 #### [facility] [address], [address] [place] [address] Roof Fitter: Tim Reilly 99-61-2758Towppttid [Moles/Vol]3.7 mmol/LNormal3.5-5.3Quest DiagnosticsComment on above:Order Comment: FASTING:YES FASTING: YESPerformed By: #### 496, 733 #### [facility] [address] [facility], [address] [place] [address] Roof Fitter: Tim Nila Mackenzie 46-66-0768SCPZPrmhfaoal (CARDMN) ORION HARPER ([id number]) 1990 F Date Time Provider Department 04/02/24 SOLO CARTY CARDMN During your visit today, we recorded the following information about you: Criss Mccrary 04/02/2024 3:53 PM Signed This 'Ankle Surgery Clearance' was faxed over to Dr. Giovani Hagen (PCP) @ [phone] for signing. I spoke with the patient. [...] Reason for Visit: Received Outside Medical Records [9821] Cmt: [facility] Athena Prescriptions as of 04/02/2024 - amphetamine-dextroamphetamine XR [...] 11/02/2022 Encounter Status:Closed by CRISS MCCRARY on 04/02/24[facility],APTIMA HPV,AGE GDLNon 00-69-7912KPS GDLN ACOG TESTINGNote. [facility]OM[facility] HealthcareComment on above:TESTS RESULT FLAG UNITS REF RANGE LAB Clinician Provided Cytology Information Source.............Vagina No. of containers..01 ThinPrep Vial Age Priyao ANALIOG Starla... 30-65 01 FLAG LEGEND: L-Low Normal,H-High Normal,LL-Alert Low,HH-Alert High <-Panic Low,>-Panic High,A-Abnormal,AA-Critical Abnormal Performed at: 01 =G [address] [address] Zoraida Hawkins MD, HPV APTIMANegativeNegativeNOMS HealthcareComment on above:This nucleic acid amplification test detects fourteen high- risk HPV types (16,18,31,33,35,39,45,51,52,56,58,59,66,68) without differentiation. Performed at: =G - [facility] [address], [place] [id number] Bundling Machine Operator: Zoraida Hawkins MD, Phone: [phone] Performed at: - [facility] [id number] Bundling Machine Operator: Zoraida Hawkins MD, Phone: [phone] IGP, APTIMA HPV, RFX 16/18,45Note.NOMS HealthcareComment on above:TESTS RESULT FLAG UNITS REF RANGE LAB DIAGNOSIS: 02 NEGATIVE FOR INTRAEPITHELIAL LESION OR MALIGNANCY. Specimen adequacy: 02 Satisfactory for evaluation. Performed by: 02 Zehra Brush, Travel Money Advisor (ASC) . 02 Note: Note 02 The [...] <-Panic Low,>-Panic High,A-Abnormal,AA-Critical Abnormal Performed at: [address] [place] [address] Zoraida Hawkins MD, [facility] Ankle - right WO contraston 39-76-5605[address] [address] Magnetic Resonance Report Signed Patient: ORION HARPER MR#: [id number] : 1990 Acct:[id number] Age/Sex: 33 / F ADM Date: 03/14/24 Loc: MRI Attending Dr: Laurie Navas M.D. Ordering Physician: Laurie Navas M.D. Date of Service: 03/14/24 Procedure(s): MR ankle RT wo con Accession Number(s): [id number] cc: GIOVANI HAGEN ; Laurie Navas M.D. The [address] [address] Patient Name: ORION HARPER MRN: [facility]:[id number] date: 1990 Sex: F Assigned Patient Location: MRI Current Patient Location: Accession/Order Number: [id number] Exam Date: 03/14/2024 15:04 Report Date: 03/17/2024 [...] ankle inclu (more content not included)...TBHRadiology, Radiologist, - 03/17/2024 [facility] [place] [facility] [address] [place] [address] Magnetic Resonance Report Signed Patient: ORION HARPER MR#: [id number] : 1990 Acct:[id number] Age/Sex: 33 / F ADM Date: 03/14/24 Loc: MRI Attending Dr: Laurie Navas M.D. Ordering Physician: Laurie Navas M.D. Date of Service: 03/14/24 Procedure(s): MR ankle RT wo con Accession Number(s): [id number] cc: GIOVANI HAGEN ; Laurie Navas M.D. The [place] [address] Patient Name: ORION HARPER MRN: [id number] date: 1990 Sex: F Assigned Patient Location: MRI Current Patient Location: Accession/Order Number: [id number] Exam Date: 03/14/2024 15:04 Report Date: 03/17/2024 [...] associated small tibiotalar joint (more content not included)...[facility] HealthcareRadiology Study observation (narrative)[facility] HealthcareMR Ankle - right WO contrastOrdered By: Radiologist Radiology on 54-71-8861[facility] Work Phone: XR ANKLE RT MIN 3Von 77-11-6835[place]uuSa[place], [place] [address] XRay Report Signed Patient: ORION HARPER MR#: [id number] : 1990 Acct:[id number] Age/Sex: 33 / F ADM Date: 03/04/24 Loc: Attending Dr: Laurie Navas M.D. Ordering Physician: Laurie Navas M.D. Date of Service: 03/04/24 Procedure(s): XR ankle RT min 3V Accession Number(s): [id number] cc: GIOVANI HAGEN ; Laurie Navas M.D. [place] [address] Patient Name: ORION HARPER MRN: [id number] date: 1990 Sex: F Assigned Patient Location: Current Patient Location: Accession/Order Number: [id number] Exam Date: 03/04/2024 08:02 Report Date: 03/06/2024 [...] M.D. Signed By: 03/06/24722 DD/ 9 TD/TT: Docket Clerk:KHALIFadiologarmando, Radiologist, - 03/06/2024 [place] [address] XRay Report Signed Patient: ORION HARPER MR#: [id number] : 1990 Acct:[id number] Age/Sex: 33 / F ADM Date: 03/04/24 Loc: EC Attending Dr: Laurie Navas M.D. Ordering Physician: Laurie Navas M.D. Date of Service: 03/04/24 Procedure(s): XR ankle RT min 3V Accession Number(s): [id number] cc: GIOVANI HAGEN ; Laurie Navas M.D. The [place] [address] Patient Name: ORION HARPER MRN: [id number] date: 1990 Sex: F Assigned Patient Location: Current Patient Location: Accession/Order Number: [id number] Exam Date: 03/04/2024 08:02 Report Date: 03/06/2024 [...] M.D. Signed By: 03/06/24722 DD/ 9 TD/TT: Docket Clerk: [place] HealthcareRadiology Study observation (narrative)[facility] HealthcareXR ANKLE RT MIN 3VOrdered By: Radiologist Radiology on 22-01-7667GBJR Healthcare Work Phone: XR CERVICAL SPINE 2-3Von 08-14-2118[address] [address] XRay Report Signed Patient: ORION HARPER MR#: [id number] : 1990 Acct:[id number] Age/Sex: 33 / F ADM Date: 01/12/24 Loc: RAD Attending Dr: GIOVANI HAGEN Ordering Physician: GIOVANI HAGEN Date of Service: 01/12/24 Procedure(s): XR cervical spine 2-3V Accession Number(s): [id number] cc: GIOVANI HAGEN [address] [address] Patient Name: ORION HARPER MRN: [id number] date: 1990 Sex: F Assigned Patient Location: [facility] Current Patient Location: ED.MAIN Accession/Order Number: [id number] Exam Date: 01/12/2024 16:55 Report Date: 01/17/2024 06:21 At the request of: GIOVANI HAGEN Procedure: XR cervical spine 2-3V EXAMINATION: XR cervical spine 2-3V HISTORY: cervical wjiuuoeawmebdJ87.12 , neck pain, numbness in shoulders and [...] Dictated By: Laurie Cruz M.D. Signed By: 01/17/2423 DD/ 0 TD/TT: Docket Clerk:TBHRadiology, Radiologist, - 01/17/[address] [address] XRay Report Signed Patient: ORION HARPER MR#: [id number] : 1990 Acct:[id number] Age/Sex: 33 / F ADM Date: 01/12/24 Loc: RAD Attending Dr: GIOVANI HAGEN Ordering Physician: GIOVANI HAGEN Date of Service: 01/12/24 Procedure(s): XR cervical spine 2-3V Accession Number(s): [id number] cc: GIOVANI HAGEN [place] [id number] Patient Name: ORION HARPER MRN: [facility]:[id number] date: 1990 Sex: F Assigned Patient Location: [facility] Current Patient Location: ED.MAIN Accession/Order Number: [id number] Exam Date: 01/12/2024 16:55 Report Date: 01/17/2024 06:21 At the request of: GIOVANI HAGEN Procedure: XR cervical spine 2-3V EXAMINATION: XR cervical spine 2-3V HISTORY: cervical shttfmvhlbizuE29.12 , neck pain, numbness in shoulders and [...] M.D. Signed By: 01/17/24622 DD/ 0 TD/TT: Docket Clerk: [place] HealthcareRadiology Study observation (narrative)NOMRodney HealthcareXR CERVICAL SPINE 2-3VOrdered By: Radiologist Radiology on 08-35-5190BZZU Healthcare Work Phone: ecg 12 leadon 28-25-9422Eqmvryyrhwk Rate : 88 BPM Atrial Rate : 88 BPM P-R Interval : 148 ms QRS Duration : 78 ms Q-T Interval : 380 ms QTC Calculation(Bazett) : 459 ms Calculated P [place] : 62 degrees Calculated R [place] : 55 degrees Calculated T [place] : 38 degrees NORMAL SINUS RHYTHM NORMAL ECG Confirmed by MD BAH HEBA ([id number]) on 12/30/2023 6:45:12 PM NAME : ORION HARPER PID : [id number] : 1990 Gender : Female Race : Other ORD : [id number] Procedure Date : Dec 19 2023 13:51:58 Edit Date : Dec 30 2023 18:45:15 Diagnosis: NORMAL SINUS RHYTHM NORMAL ECG Confirmed by MD BAH HEBA ([id number]) on 12/30/2023 6:45:12 PM Test Reason : Location : 314 : J14 J1-4 Overread By : MD BAH HEBA Edited By : MD BAH HEBA Referred By : , Acquired by : CHELSEY JOSEPHHOLLAND HOSPITALadiology, Radiologist, - 12/30/2023 Ventricular Rate : 88 BPM Atrial Rate : 88 BPM P-R Interval : 148 ms QRS Duration : 78 ms Q-T Interval : 380 ms QTC Calculation(Bazett) : 459 ms Calculated P [place] : 62 degrees Calculated R [place] : 55 degrees Calculated T [place] : 38 degrees NORMAL SINUS RHYTHM NORMAL ECG Confirmed by MD BAH HEBA ([id number]) on 12/30/2023 6:45:12 PM NAME : ORION HARPER PID : [id number] : 1990 Gender : Female Race : Other ORD : [id number] Procedure Date : Dec 19 2023 13:51:58 Edit Date : Dec 30 2023 18:45:15 Diagnosis: NORMAL SINUS RHYTHM NORMAL ECG Confirmed by MD BAH HEBA ([id number]) on 12/30/2023 6:45:12 PM Test Reason : Location : 314 : J14 J1-4 Overread By : MD BAH HEBA Edited By : MD BAH HEBA Referred By : , Acquired by : CHELSEY JOSEPH [facility] 12 leadOrdered By: Radiologist Radiology on 25-88-3567ILSLResearch Belton Hospital Work Phone: aLL CBC WITH AUTO DIFFon 30-38-1378YRLNRFRPG ABSOLUTE AUTO0.0NOMS HealthcareBasophils/100 WBC (Bld)0.4 %0.2 - 2.0 %[facility] Eosinophils/100 WBC (Bld)2.8 %0.9 - 7.0 %NOMMissouri Delta Medical CenterErythrocyte distribution width (RBC) [Ratio]12.4 %11.0 - 15.0 %NOMS HealthcareHematocrit (Bld) [Volume fraction]41.9 %36.0 - 48.0 %NOMMissouri Delta Medical CenterHemoglobin (Bld) [Mass/Vol]14.2 g/dL 12.0 - 16.0 g/dLResearch Belton HospitalIMMATURE GRANULOCYTES ABS AUTO0.03NOMS [facility] Immature granulocytes/100 WBC (Bld)0.4 %0.0 - 0.5 %NOMMissouri Delta Medical CenterLYMPHOCYTES ABSOLUTE AUTO2.8NOMS [facility] HospitalLymphocytes/100 WBC (Bld)35.6 %20.5 - 60.0 %[facility] CenterH (RBC) [Entitic mass]32.1 pg26.7 - 34.[address]NOMosaic Life Care [address] JosephHC (RBC) [Mass/Vol]33.9 g/dL29.9 - 35.2 g/dLResearch Belton HospitalMCV (RBC) [Entitic vol]94.8 fL 81.0 - 99.0 fLResearch Belton HospitalMONOCYTES ABSOLUTE AUTO0.5NONorthwest Medical Center Monocytes/100 WBC (Bld)6.0 %1.7 - 12.0 %NOMMissouri Delta Medical CenterNEUTROPHILS ABSOLUTE AUTO 4.3NOMS HealthcareNeutrophils/100 WBC (Bld)54.8 %43.0 - 75.0 %[facility] Platelet mean volume (Bld) [Entitic vol]10.4 fL9.5 - 13.5 fLNONorthwest Medical CenterTB EO #0.2NOMS HealthcareTBH [id number] [facility] HospitalTB RBC4.42NOMS [facility] Memorial HospitalTB WBC 7.8NOMS HealthcareCLINISYNCNOMS HealthcareXR ABDOMEN 1Von 28-54-5038Hso[address] [address] XRay Report Signed Patient: ORION HARPER MR#: [id number] : 1990 Acct:[id number] Age/Sex: 33 / F ADM Date: 11/16/23 Loc: RAD Attending Dr: Madhuri Ortiz M.D. Ordering Physician: Madhuri Ortiz M.D. Date of Service: 11/16/23 Procedure(s): XR abdomen 1V Accession Number(s): [id number] cc: GIOVANI HAGEN ; Madhuri Ortiz M.D. The [place] [id number] Patient Name: ORION HARPER MRN: [id number] date: 1990 Sex: F Assigned Patient Location: RAD Current Patient Location: Accession/Order Number: [id number] Exam Date: 11/16/2023 16:15 Report Date: 11/20/2023 [...] Signed By: 11/20/23 0800 DD/ 0757 TD/TT: Docket Clerk:TBHRadiology, Radiologist, - 11/20/[address] [address] XRay Report Signed Patient: ORION HARPER MR#: [id number] : 1990 Acct:[id number] Age/Sex: 33 / F ADM Date: 11/16/23 Loc: RAD Attending Dr: Madhuri Ortiz M.D. Ordering Physician: Madhuri Ortiz M.D. Date of Service: 11/16/23 Procedure(s): XR abdomen 1V Accession Number(s): [id number] cc: GIOVANI HAGEN ; Madhuri Ortiz M.D. [address] [address] Patient Name: ORION HARPER MRN: [facility]:[id number] date: 1990 Sex: F Assigned Patient Location: RAD Current Patient Location: Accession/Order Number: [id number] Exam Date: 11/16/2023 16:15 Report Date: 11/20/2023 [...] Signed By: 11/20/23 0800 DD/ 0757 TD/TT: Docket Clerk: NOMS HealthcareRadiology Study observation (narrative)NOMS HealthcareXR ABDOMEN 1VOrdered By: Radiologist Radiology on 84-36-4801ZQTJ Healthcare Work Phone: Extra Lavender Tubeon 18-56-8529Igvcc Lavender Tube NormalWooster Community HospitalComment on above:Performed By: #### XLAV, LIVP, LIP #### [facility] [address] [place], [place] [id number] Bundling Machine Operator: Ronald Pearce MDLipaseon 13-57-7059Kwypxm [Catalytic activity/Vol]260 U/LAacw53-16TamfmWooster Community HospitalComascension [facility] on above:Performed By: #### XLAV, LIVP, LIP #### [facility] [address] [place] [address] Bundling Machine Operator: Ronald Pearce MDLiver Profileon 81-66-1208Caeiwqr [Mass/Vol]3.5 g/dLNormal3.5-5.2[facility] Kindred HealthcareComascension [facility] hospital on above:Performed By: #### XLAV, LIVP, LIP ####[facility] [address] [place] [address] Lab Director: Selwyn Juan Lkgv604 U/LHigh 35-104Wooster Community HospitalComascension prov[facility] on above:Performed By: #### XLAV, LIVP, LIP ####[facility] [address] [place] [address] Lab Director: Ronald Pearce MDALT [Catalytic activity/Vol] 137 U/LHigh5-33MerSwedish Medical Center BallardComascension [facility] hospital on above:Performed By: #### XLJUAN M, LIVP, LIP ####[facility] [address] [place] [address] Lab Director: Ronald Pearce MDAST [Catalytic activity/Vol] 60 U/LHigh<32MerSwedish Medical Center BallardComascension prov[facility] hospital on above:Performed By: #### XLAV, LIVP, LIP ####[facility] [address] [facility] [place] [address] Lab Director: Ronald Pearce MDBilirubin [Mass/Vol]1.0 mg/dL Normal0.3-1.2[facility] Kindred HealthcareComascension [facility] on above:Performed By: #### XLAV, LIVP, LIP ####[facility] [address] [place] [address] Lab Director: Ronald Pearce MDBilirubin, Indirect0.4 mg/dL Normal0.0-1.0Wooster Community HospitalComment on above:Performed By: #### XLAV, LIVP, LIP ####[facility] [address] [place] [address] Lab Director: Ronald Pearce MDBilirubin.indirect [Mass/Vol] 0.6 mg/dLHigh<0.3Mercy Kindred HealthcareComment on above:Performed By: #### XLAV, LIVP, LIP ####[facility] [address] [place] [address] Lab Director: DULCE Juanrotein [Mass/Vol]5.7 g/dL Low6.4-8.3Mercy Kindred HealthcareComment on above:Performed By: #### XLAV, LIVP, LIP ####[facility] [address] [place] [address] Lab Director: Ronald Pearce MDExtra Lavender Tubeon 77-66-9282Uscjg Lavender TubeNormalWooster Community HospitalComment on above: Performed By: #### LIVP, XLAV ####[facility] [address] [place], [place] [address]ia [place] [address] Lab Director: BECKI Juan CHOLANGIOGRAM ORon 53-37-7005YO CHOLANGIOGRAM OREXAMINATION: SPOT FLUOROSCOPIC IMAGES 03/23/2023 9:08 [...] Signed by: Danny Cole MD 03/23/23 Final resultNormalMerSwedish Medical Center BallardLiver Profileon 54-50-5881Fmjnatj [Mass/Vol]3.5 g/dLNormal3.5-5.2[facility] Kindred HealthcareComascension [facility] on above:Performed By: #### LIVP, XLAV ####[facility] [address] [place] [address] Lab Director: Selwyn Juan Phos 293 U/HDulf90-601ByhymWooster Community HospitalComascension [facility] hospital on above:Performed By: #### LIVP, XLAV ####[facility] [address] [place] [address] Lab Director: Ronald Pearce MDALT [Catalytic activity/Vol] 111 U/LHigh5-33W[facility] Community HospitalComascension [facility] on above:Performed By: #### LIVP, XLAV ####[facility] [address] [facility], [place] [address] Lab Director: Ronald Pearce MDAST [Catalytic activity/Vol]43 U/LHigh<32MerPeaceHealth on above:Performed By: #### LIVP, XLAV ####[facility] [address] [place], [place] [address] Lab Director: Ronald Pearce MDBilirubin [Mass/Vol]2.6 mg/dL High0.3-1.2[facility] Kindred HealthcareComascension [facility] hospital on above:Performed By: #### LIVP, XLAV ####[facility] [address] [facility], [place] [address] Lab Director: Ronald Pearce MDBilirubin, Indirect0.8 mg/dL Normal0.0-1.0Mer[facility] Kindred HealthcareComment on above:Performed By: #### LIVP, XLAV ####[facility] [address] [facility], [place] [address] Lab Director: Ronald Pearce MDBilirubin.indirect [Mass/Vol]1.8 mg/dLHigh<0.3Mer[facility] Kindred HealthcareComment on above:Performed By: #### LIVP, XLAV ####[facility] [address] [facility] [address] Lab Director: DULCE Juanrotein [Mass/Vol]5.7 g/dLLow 6.4-8.3[facility] Kindred HealthcareComment on above:Performed By: #### LIVP, XLAV ####[address], [place] [address] [phone] Director: MERISSA Juanurgical Pathology Reporton [id number] Pathology Report(NOTE) Path Number: [id number] -- Diagnosis -- A. GALLBLADDER AND CONTENTS, CHOLECYSTECTOMY: Cholelithiasis. Lulú Javed M.D. Electronically Signed [place] [facility] [place]/2023 Clinical Information Pre-op Diagnosis: ACUTE PANCREATITIS, UNSPECIFIED [...] lesions or periductal lymph nodes are identified. Time Checker sections 1c. tm SM/tb1:03/24/2023 Microscopic Description Microscopic examination performed. Processing Lab: [address] [address] Interpretation Performed at [address] [address] SURGICAL PATHOLOGY CONSULTATION Patient Name: ORION HARPER [facility] Rec: [id number] [facility] ANATOMIC PATHOLOGY [address] [place] [phone] NormalTriHealth [facility] with Diffon 02-45-8913Vyh. Basophil<0.10Fivnnm7.00-0.20[facility] HospitalComascension [facility] on above:Performed By: #### CDP, LIP, CMPX #### [facility] [address] [place] [address] Bundling Machine Operator: Ronald Pearce MD #### TRIG #### [address] [address] Bundling Machine Operator: Juliet Gordillo.Imm.Granulocyte0.03 k/uLNormal0.00-0.30[facility] HospitalComascension [facility] on above:Performed By: #### CDP, LIP, CMPX #### [facility] [address] [place] [address] Bundling Machine Operator: Ronald Pearce MD #### TRIG #### [address] [address] Bundling Machine Operator: Juliet Gordillo.Neutrophil (Seg)6.89 k/uLNormal1.50-8.10 [facility] HospitalComasc[facility] on above:Performed By: #### CDP, LIP, CMPX #### [facility] [address] [place] [address] Bundling Machine Operator: Ronald Pearce MD #### TRIG #### [address] [address] Bundling Machine Operator: Elio Marley MDBasophils/100 WBC (Bld)0 %Normal0-2MLegacy Salmon Creek HospitalComment on above:Performed By: #### CDP, LIP, CMPX #### [facility] [address] [place] [address] Bundling Machine Operator: Ronald Pearce MD #### TRIG #### [address] [address] Bundling Machine Operator: Elio Marley MDEosinophils (Bld) [#/Vol]0.07 10*3/uLNormal 0.00-0.44[facility] HospitalComascension [facility] on above:Performed By: #### CDP, LIP, CMPX #### [facility] [address] [place] [address] Bundling Machine Operator: Ronald Pearce MD #### TRIG #### [address] [address] Bundling Machine Operator: Elio Marley MDEosinophils/100 WBC (Bld)1 %Normal1-4W[facility] Community HospitalComment on above:Performed By: #### CDP, LIP, CMPX #### [facility] [address] [place] [address] Bundling Machine Operator: Ronald Pearce MD #### TRIG #### [address] [address] Bundling Machine Operator: Elio Marley MDErythrocyte distribution width (RBC) [Ratio]12.2 %Bhkzvc53.8-14.4W[facility] Community HospitalComment on above:Performed By: #### CDP, LIP, CMPX #### [facility] [address] [place] [address] Bundling Machine Operator: Ronald Pearce MD #### TRIG #### [address] [address] Bundling Machine Operator: Elio Marley MDHematocrit (Bld) [Volume fraction]36.9 %Normal 36.3-47.1MKindred Hospital Dayton on above:Performed By: #### CDP, LIP, CMPX #### [facility] [address] [place] [address] Bundling Machine Operator: Ronald Pearce MD #### TRIG #### [address] [address] Bundling Machine Operator: Elio Marley MDHemoglobin (Bld) [Mass/Vol]12.1 g/dLNormal 11.9-15.1MLegacy [place] HospitalComascension [facility] on above:Performed By: #### CDP, LIP, CMPX #### [facility] [address] [place] [address] Bundling Machine Operator: Ronald Pearce MD #### TRIG #### [address] [address] Bundling Machine Operator: Elio Marley MDImmature granulocytes/100 WBC (Bld)0 %Normal0 [facility] on above:Performed By: #### CDP, LIP, CMPX #### [facility] [address] [place] [address] Bundling Machine Operator: Ronald Pearce MD #### TRIG #### [address] [address] Bundling Machine Operator: Elio Marley MDLymphocytes (Bld) [#/Vol]1.62 10*3/uLNormal 1.10-3.70[facility] on above:Performed By: #### CDP, LIP, CMPX #### [facility] [address] [place] [address] Bundling Machine Operator: Ronald Pearce MD #### TRIG #### [address] [address] Bundling Machine Operator: Elio Marley MDLymphocytes/100 WBC (Bld)18 %Ceo23-99EoglgWooster Community HospitalComment on above:Performed By: #### CDP, LIP, CMPX #### [facility] [address] [place] [address] Bundling Machine Operator: Ronald Pearce MD #### TRIG #### [address] [address] Bundling Machine Operator: HIREN GordilloCH (RBC) [Entitic mass]32.5 tzThvxfx07.2-33.5 [facility] HospitalComasc[facility] on above:Performed By: #### CDP, LIP, CMPX #### [facility] [address] [place] [address] Bundling Machine Operator: Ronald Pearce MD #### TRIG #### [address] [address] Bundling Machine Operator: HIREN GordilloCHC (RBC) [Mass/Vol]32.8 g/cWJyvyzu42.4-34.8 [facility] on above:Performed By: #### CDP, LIP, CMPX #### [facility] [address] [place] [address] Bundling Machine Operator: Ronald Pearce MD #### TRIG #### [address] [address] Bundling Machine Operator: HIREN GordilloCV (RBC) [Entitic vol]99.2 qQPpicig51.6-102.9 [facility] HospitalComascension [facility] on above:Performed By: #### CDP, LIP, CMPX #### [facility] [address] [place] [address] Bundling Machine Operator: Ronald Pearce MD #### TRIG #### [address] [address] Bundling Machine Operator: Elio Marley MDMonocytes (Bld) [#/Vol]0.57 10*3/uLNormal 0.10-1.20[facility] HospitalComascension [facility] on above:Performed By: #### CDP, LIP, CMPX #### [facility] [address] [place] [address] Bundling Machine Operator: Ronald Pearce MD #### TRIG #### [address] [address] Bundling Machine Operator: HIREN Gordilloonocytes/100 WBC (Bld)6 %Normal3-12[facility] HospitalComasc[facility] on above:Performed By: #### CDP, LIP, CMPX #### [facility] [address] [place] [address] Bundling Machine Operator: Ronald Pearce MD #### TRIG #### [address] [address] Bundling Machine Operator: Elio Marley MDNeutrophil (Seg)75 %Xeul77-92XrergWooster Community HospitalComascension [facility] on above:Performed By: #### CDP, LIP, CMPX #### [facility] [address] [place] [address] Bundling Machine Operator: Ronald Pearce MD #### TRIG #### [address] [address] Bundling Machine Operator: Elio Marley MDNRBC Automated0.0 per 100 WBCNormal0.0[facility] HospitalComasc[facility] on above:Performed By: #### CDP, LIP, CMPX #### [facility] [address] [place] [address] Bundling Machine Operator: Ronald Pearce MD #### TRIG #### [address] [address] Bundling Machine Operator: Yasemin Gordillo mean volume (Bld) [Entitic vol]10.7 fL Normal8.1-13.5[facility] HospitalComasc[facility] on above:Performed By: #### CDP, LIP, CMPX #### [facility] [address] [place] [address] Bundling Machine Operator: Ronald Pearce MD #### TRIG #### [address] [address] Bundling Machine Operator: Pierre Gordillo (Bld) [#/Vol]188 10*3/xEUuzeiq705-482 [facility] HospitalComasc[facility] on above:Performed By: #### CDP, LIP, CMPX #### [facility] [address] [place] [address] Bundling Machine Operator: Ronald Pearce MD #### TRIG #### [address] [address] Bundling Machine Operator: Elio Marley MDRBC (Bld) [#/Vol]3.72 10*6/uLLow3.95-5.11[facility] on above:Performed By: #### CDP, LIP, CMPX #### [facility] [address] [place] [address] Bundling Machine Operator: Ronald Pearce MD #### TRIG #### [address] [address] Bundling Machine Operator: Elio Marley MDWBC (Bld) [#/Vol]9.2 10*3/uLNormal3.5-11.3MLegacy [place] HospitalComascension [facility] on above:Performed By: #### CDP, LIP, CMPX #### [facility] [address] [place] [address] Bundling Machine Operator: Ronald Pearce MD #### TRIG #### [address] [address] Bundling Machine Operator: STONEY Gordilloomp Metabolic Pr/rfx MGon 49-32-8786Bualtpl [Mass/Vol]3.5 g/dLNormal3.5-5.2Mblanchard valley health system bluffton hospitaly Kindred HealthcareComment on above:Performed By: #### CDP, LIP, CMPX #### [facility] [address] [place] [address] Bundling Machine Operator: Ronald Pearce MD #### TRIG #### [address] [address] Bundling Machine Operator: Selwyn Gordillo Avpx599 U/FQbgt45-151LhrmdWooster Community HospitalComascension [facility] on above:Performed By: #### CDP, LIP, CMPX #### [facility] [address] [place] [address] Bundling Machine Operator: Ronald Pearce MD #### TRIG #### [address] [address] Bundling Machine Operator: CORBY Gordillo [Catalytic activity/Vol]131 U/LHigh5-33[facility] HospitalComascension [facility] on above:Performed By: #### CDP, LIP, CMPX #### [facility] [address] [place] [address] Bundling Machine Operator: Ronald Pearce MD #### TRIG #### [place] [address] [place] [address] Bundling Machine Operator: Stephen Gordillo gap [Moles/Vol]11 mmol/LNormal9-17[facility] Community HospitalComment on above:Performed By: #### CDP, LIP, CMPX #### [facility] [address] [place] [address] Bundling Machine Operator: Ronald Pearce MD #### TRIG #### [address] [phone] Bundling Machine Operator: Elio Marley MDAST [Catalytic activity/Vol]34 U/LHigh<32[facility] Community HospitalComment on above:Performed By: #### CDP, LIP, CMPX #### [facility] [address] [place] [address] Bundling Machine Operator: Ronald Pearce MD #### TRIG #### [address] [phone] Bundling Machine Operator: Elio Marley MDBilirubin [Mass/Vol]1.9 mg/dLHigh0.3-1.2Mercy Kindred HealthcareComment on above:Performed By: #### CDP, LIP, CMPX #### [facility] [address] [place] [address] Bundling Machine Operator: oRnald Pearce MD #### TRIG #### [address] [phone] Bundling Machine Operator: Elio Marley MDBUN/CRE Rsdev59Hnifdj6-28FwoddWooster Community Hospital Comment on above:Performed By: #### CDP, LIP, CMPX #### [facility] [address] [place] [address] Bundling Machine Operator: Ronald Pearce MD #### TRIG #### [address] [phone] Bundling Machine Operator: STONEY Gordilloalcium [Mass/Vol]8.1 mg/dLLow8.6-10.4[facility] Community HospitalComment on above:Performed By: #### CDP, LIP, CMPX #### [facility] [address] [place] [phone] Bundling Machine Operator: Ronald Pearce MD #### TRIG #### [address] [phone] Bundling Machine Operator: Elio Marley MDChloride [Moles/Vol]105 mmol/EXxdrql76-320UiuvmWooster Community HospitalComment on above:Performed By: #### CDP, LIP, CMPX #### [facility] [address] [place] [phone] Bundling Machine Operator: Ronald Pearce MD #### TRIG #### [address] [phone] Bundling Machine Operator: Elio Marley MDCO2 [Moles/Vol]21 mmol/WBydngg87-92MqkbqWooster Community HospitalComment on above:Performed By: #### CDP, LIP, CMPX #### [facility] [address] [place] [address] Bundling Machine Operator: Ronald Pearce MD #### TRIG #### [address] [phone] Bundling Machine Operator: Elio Marley MDCreatinine [Mass/Vol]0.6 mg/dLNormal0.5-0.9[facility] Community HospitalComment on above:Performed By: #### CDP, LIP, CMPX #### [facility] [address] [place] [address] Bundling Machine Operator: Ronald Pearce MD #### TRIG #### [address] [phone] Bundling Machine Operator: Elio Marley MDGFR/1.73 sq M.predicted among non-blacks MDRD (S/P/Bld) [Vol rate/Area]mL/min/{1.73_m2}Normal>60[facility] HospitalComment on above:Result Comment: These results are not [...] secretion.Performed By: #### CDP, LIP, CMPX #### [facility] [address] [place] [address] Bundling Machine Operator: Ronald Pearce MD #### TRIG #### [address] [id number] Bundling Machine Operator: Elio Marley MDGlucose [Mass/Vol]75 mg/hIGtbvnb98-51IgszaLegacy Salmon Creek HospitalComment on above:Performed By: #### CDP, LIP, CMPX #### [facility] [address] [place] [address] Bundling Machine Operator: Ronald Pearce MD #### TRIG #### [address] [id number] Bundling Machine Operator: DULCE Gordillootassium [Moles/Vol]4.0 mmol/LNormal3.7-5.3 [facility] HospitalComment on above:Performed By: #### CDP, LIP, CMPX #### [facility] [address] [place] [address] Bundling Machine Operator: Ronald Pearce MD #### TRIG #### [address] [address] Bundling Machine Operator: DULCE Gordillorotein [Mass/Vol]5.7 g/dLLow6.4-8.3Mer[facility] Kindred HealthcareComment on above:Performed By: #### CDP, LIP, CMPX #### [facility] [address] [place] [address] Bundling Machine Operator: Ronald Pearce MD #### TRIG #### [address] [address] Bundling Machine Operator: MERISSA Gordilloodium [Moles/Vol]137 mmol/FFfoqov435-176XumqoWooster Community HospitalComment on above:Performed By: #### CDP, LIP, CMPX #### [facility] [address] [place] [address] Bundling Machine Operator: Ronald Pearce MD #### TRIG #### [address] [address] Bundling Machine Operator: Elio Marley MDUrea nitrogen [Mass/Vol]10 mg/dLNormal6-20[facility] HospitalComment on above:Performed By: #### CDP, LIP, CMPX #### [facility] [address] [place] [address] Bundling Machine Operator: Ronald Pearce MD #### TRIG #### [address] [address] Bundling Machine Operator: Elio Marley MDK ([facility])on 17-51-7741Jrhjxvthg [Moles/Vol] 3.8 mmol/LNormal3.7-5.3Mer[facility] Kindred HealthcareComment on above:Performed By: #### K #### [facility] [address] [place] [address] Bundling Machine Operator: Ronald Pearce MDLipaseon 73-90-3905Fisalp [Catalytic activity/Vol]198 U/JCfjz22-18BmqdmWooster Community HospitalComment on above:Performed By: #### CDP, LIP, CMPX #### [facility] [address] [facility] [place] [address] Bundling Machine Operator: Ronald Pearce MD #### TRIG #### [facility] [address] [place], [place] [id number] Bundling Machine Operator: HIREN GordilloRI ABDOMEN WO CONTRAST MRCPon 82-57-1583EGI ABDOMEN WO CONTRAST MRCPEXAMINATION: MRI OF THE [...] Signed by: Daniel Hooker MD 03/22/23 Final resultNormalMercy Kindred HealthcareTriglycerideson 26-57-5222Yenkjsscopeu [Mass/Vol]102 mg/dLNormal0-149W[facility] HospitalComment on above:Result Comment: Triglyceride Guidelines: <150 Desirable 150-199 Borderline 200-499 High >499 Very high Based on AHA Guidelines for fasting triglyceride, January 2012.Performed By: #### CDP, LIP, CMPX #### [facility] [address] [place] [address] Bundling Machine Operator: Ronald Pearce MD #### TRIG #### [employer] [address] [place], [place] [id number] Bundling Machine Operator: Mackenzie Gordillo 26-59-2341DFLAJgzkllnbo (FVPRAD) ORION HARPER ([id number]) 1990 F Date Time Provider Department 03/20/23 [...] 11/02/2022 Encounter Status:Closed by CHARLETTE CAMPUZANO on 03/20/23[facility] Ferritin [Mass/volume] in Serum or PlasmaOrdered By: Erwin Hylton on 10-26-2022 Ferritin [Mass/Vol]106.5 ng/mL11.0-306.8[facility] GASTRIC EMPTYING SOLIDon 90-50-6792Fxkyrdhts ClinicNM Stomach Views for gastric emptying solid phase W radionuclide Izabella 17-43-5352QRHFGBFNKV: EVIDENCE OF DELAYED RATE OF GASTRIC EMPTYING OF SOLID MEAL. ABNORMAL STUDY: 36-50% RETENTION AT 4 HOURS IS CONSISTENT WITH SEVERE GASTROPARESIS. Docket Clerk: MINAL Transcribe Date/Time: Sep 12 2022 3:02P Dictated by : LUZ MARINA VÁZQUEZ MD This examination was interpreted and the report reviewed and electronically signed by: LUZ MARINA VÁZQUEZ MD on Sep 12 2022 3:05PM [facility]* * *Final Report* * * DATE OF EXAM: Sep 12 2022 2:44PM [facility] 0017 - [place] GASTRIC EMPTYING SOLID [...] (rapid emptying is <30% retention at 1hr). [facility] RADIOLOGYProvider, [facility] - 09/12/2022 * * *Final Report* * * DATE OF EXAM: Sep 12 2022 2:44PM [facility] 0017 - [place] GASTRIC EMPTYING SOLID [...] 4 HOURS IS CONSISTENT WITH SEVERE GASTROPARESIS. Docket Clerk: PSCB Transcribe Date/Time: Sep 12 2022 3:02P Dictated by : LUZ MARINA VÁZQUEZ MD This examination was interpreted and the report reviewed and electronically signed by: LUZ MARINA VÁZQUEZ MD on Sep 12 2022 3:05PM [facility] (narrative)[facility] Stomach Views for gastric emptying solid phase W radionuclide POOrdered By: Ccf Provider on 20-46-6177Vzvrasncq ClinicEG Study observation Narrativeon 40-62-0986Mhrtt [facility] G[facility] End[facility] Patient Name: Orion Harper Procedure Date: 08/31/2022 2:51 PM Date of : 1990 Admit Type: Outpatient Age: 31 Room: [place] [address] Gender: Female 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 Override Attending MD: Carol Winn MD Procedure: [...] verified by the physician, the nurse, the guest relations manager and the veterinary laboratory technician in the procedure room at [...] in the gastric (more content not included)...[facility] PATHOLOGYOrdered By: Padilla Jasmine on 21-95-4217Onid ReportSurgical Pathology Report Case: [id number] Authorizing Provider: Carol Winn MD Collected: 08/31/2022 03:04 PM Ordering Location: Ambulatory Surgery Received: 08/31/2022 09:20 PM Pathologist: Padilla Jasmine MD Specimens: A) - SMALL INTESTINE BIOPSY, r/o celiac B) - ANTRUM (STOMACH) BIOPSY, r/o hpylori C) - STOMACH BIOPSY, gastric body r/o hpylori [facility] Work Phone: Diagnosis Comment h6hevOTnANDdmSQeVRTpFOojtlRmYHMamUMzJ0QavxslPKruOO2hZW8zpMnbsUJvtRPuRUCvHpEom0zb m276vQVgs2xjZUQKbrou kGv2oBklD67qq6V3TnisM06aaGSnCIQ8UAXlWJYfyJNwPBInHES1SEAuxXWrO8bmARRcGP9ijjqiXPza FFhdOALomWD7MIPgrIFo T4KfMPXtBWcdAQQlybb9HnKhNq3kpAAdaVtmXDywYQHpERHmKJtoUOIqKbPySYccsr3lY62fuLJzKEps qWxvWORdc06la4jyi6Fz pR03PWQ4WPLkwQdhhYAmKJWmjDz7BKI6uIKjILomqBsuhNI2W2c0MLsasTGnQVLhdNztvXyyySRdmW3r fI6wmCTgl6kaMsGLmCOw JVGscA8tkW0qzoWffjRarx37DCZotTmjKSm9RQNmJZAkWuwdYlJhtBDlKVJfevXoWFqqX41ar6zdGPGs bUofswPab795gMRagA7o nGZlTJPnLJAwpmWgXOJabMytYnMkhGE2ODhcSBFrnXM0cIEitjClGOWpFFQsPq7rcJmhTBGXO2SNABHy GK6hFExxPbAjdRlkcGFl P3FbkIBdYX44XMAawYbrABtymwKntXMkyglfDSNhiFFxInYfhNEuCRN6lN8nvSdtAT1gfeudy2PaBOYm OoPdK01oopCmSDVvQCfgmXnjo9Rpj5gwM7rma1D4NYwwss1kfKDdkR==Raqfwajgt Clinic Work Phone: FINAL DIAGNOSIS s6mndZXjMUYumFKkAWCaVClblkMrJOGnfNCbH6EftpelFUpaRM1oKV6ycOfmlTFpkLFtWFXpOxGvg5gm j037pOSph0zrXFRUrdqw kGa5fUlzY41xu8H5HbjdK04xfQLqWBU1WCYcZBLcePWcOVIpSHJ5DJFdbFRvL2yaLMNwMA4akfriFCsa DZdvRKAqeIG4TSOkdINq U3LrONUvPRhkDKPgmat6SfMjOw5pcBKtjIezJUtoRZBiXHQeDLsdNMZzPiCzQK0eXAInLDyxJGxvjNIg qZcuILbnHztafCF0Ltdp zH3cTH2PzHUlfGJpbsKji1OiagKmLU19Q25bVWX5oYQtOF0jrw1usKY4pRzuj5GaSVPpY3ikjIGjlTFp RBIqktJce6ccY5w8G5If jKUdvAPumtCfYISjSGJsniBcmrBeWFVwoKEwWEmbCFkusImenXskS1c2RIHojDjmREukuJ8xLNJlVLUT iG0rTZIfDDTmrfPupC4z JMCgw3DlxLfqrKhtXDEyYFEfbBNhGqIffQFpTTQ3wI5eyCInw8MyW0trpAJuGIUyto6ruEUrLVI8eMEc IUhxo4TnnCNth8lwoC7l DU9Ug9JrsOe7BDQpg7IfBVOveQUpEnYsxDUkOQH7pI4cpYFrwofcjjjwvDVvv03lif06oTvsJYDtbUMi irvmG0pghU8nSXzbfwJp Uz7cXVD7g73lZ3nbTKOsFVxuODWms4XmuYjwuLsvVORpDSPtmYKrKxHouLMbPRH9iC1mwRKmf3TzM4yn fDRyYQMnst5qfIJpCCC2 tASuTZjtc9KutDJku2qdnZ5sXQ3Ou5FmbQr7HNTaj0UlPQCbnVFbPnFhgHHjLYK5dO1rhFShsltniqin vSFhu38tro23fZwkTVJppPUjtiysX2hyMWA2Ynchpsvac Clinic Work Phone: Gross Description v6fszHNqKIGrtWSAPVFhLNOoOO5nmRudtAu8rKezIWMwmmA5yMEmIDolb5zoZKS2c9vzsiPENrbzLNGt ZOmuBSQvgxgtYwR0PUsy PLGvtsqkMDm8RFyeIHUasAA6STXupIPtI3HtGRGqAV5ukzk0KZL1EAxqGSSeWmQ5AKIuFgLtFfarXTm5 RPNdvuJ0Uuy4WOSvKJPo xOGmu2X5ZXgszunaAMPuiIFlV981MVkdc3FsvDPyIGnunJXfEAWKGrmkQgooaEwnk1FufGYfKRabVKOz HWPrDSbhakrjVIc5MRRv RKhqcHGmMM8jfLghYdtgaVzzb0VctNJmTLceAGFmORDlVNglADRaNR7OChOmYZMzXND1IFyoHdT6UXm5 OSBPVlMgIiAgMzExNDIy IqVfZUf1QRh3AHaKGyWcOJPnVkAcKMGyKuD2TVwoGqEbMCSeAfCzVGUtAIOmOMedXEgikPIzMW4esJxu bGFpbiBBLiBTTUFMTCBJ MmFEE6FOFwMuGpgKRFZNKVUzfpWQJvbqyTmuXhTmiHVvJsWpWHrxcGJosOBvCYuvovNcvuihSUUYTqgf cJMqkYafraNuKIKoK0Br glFcTQfbDQQdcf4rtCraJWKvJVPmjQx1iEZpJHLbkWZjQNTwu1AaiUQgXNOhi6I3MBBsb2W0NICrH3st DIupnBjdNtK1zzPtYlVr kZUmFlXhoETuEtRwS32nWRMinKMhbCmhp7IhfRc7iYThMPigVW9zEGRbRHMhPOV2CT6fsWcrLOKFHrnq cGljTmVzdERvYzBcdjB7 LLEhwIFkKJK9PC1zDBHwbrtnUEHxSWTiMAH0MFopfH54jRPqBBYuNDFwtFQqgIrsyVEssbDHXkujIyxo wCjbg2XppAGbPHliWUGa PICaGOqdBPEvLQ4BUbHqLLCkAPP9EVofLqC4RCw4KDTFMmHeTvSaMwPhHVNhQlUmWOy0SQp7XPvVRgXu VPFuCdEfNOC1XDB8KThp PrUzWMZfBgYvBSYiCZFaFQiuVJniuHQaTM1zsOxipCCibuobsqB9MFIiMIyeQWGyZQEIUFJERRKhR2NO TUFDSCkgQklPUFNZXHBh wrXZPggweVmcKnLdtEHiXbNxJKkedMIngOViLQwqkoUfcslfLNBLDszyeVZxfEzvipLqRDQcT2UqghAx DYlnKHYlug4hyLruSUOa SBKicSx3hXEcCEMzxSWkHENtq3VefGZwAXDgs0N2VNCsl5Y5EESaX1dgVKnyqSpnWiH2axCfFuZhqNOi HaUzuNZhGwQfI57dDVQi oIPgyEqqq4FihUu3yXQxUPuySC2uCPCsEJBrAGD5AJ6qwEeuQBZOGcufdLayQmQupYPkTdVciqM3TPOe iBTrOCY3FY6gJXWyblyo UKOmFCOyMOM9CDegcU51aVUvIENcWDTkbYHnaCxpkZHoaeHKKetbYssruAyac5GsuAGqMDrkMCBjNRDu ZOlqIIUwTC2MOnIcRFNy BYE1VVcsHgG7AFt7VCWXWpMtIpBoYxCaUIQnFwPkGUm4KQz1LZfSSdGrLUBxMxFxCNk5QwS0IRsqFxZw XHQgMiBcXGYgQXJpYWwg EEbiqKMbWG9nlWzauMLuoeaihkZ7RVOnQDnsJIFzEWPTG03BA0maKwdCNMCJFPUgtdNTMgljiXkjQfYz dERvYzEgDQpcbHRycGFy VVahfvQgcoinVZKKDyalcYFblGehwvEyYTMdG2UhncRfSCbpYPVhxz8dyUxaCRPxQXHddDc8pSJqDADu zHKpKPRjq9OdrXUpVUBm w3I5LRBnl6U6YXNaF7jkBNbxzCfjFxV8acNlSlivkYBdHjTkpNKzIyYgF11oEALdqABrjKovd3TmkTp3 eAApXVxfIM7vICHlHIZx BTU2GI4ncZnkULNvEDDjiiRXCbpVSM9xgQGhHEykMxTbKfSjKkTcGKRBNE9xbTSwGW6EALJsqdJIVwuw n2NgPOO0NT1pxzN0hQ0g HTVvnlYazy2cVOQquSBUeAE0JSfevoBzQ4uwcjziFEZ8RBRwZQK4Y9poTCDKfkFhTGHKoCU7JNhqtdUc WG3XFCY1BXm4CQVwcnGX XepgcUimTvXoxWNqBeYmbhJ8LTDpxTUnNYN8HV1qLIHawrykAHYyGNZgBPO5XTeorE69bUItZFNfKGTa cGFyfVxwbGFpbiANClxz kC9jUsOxs6pdmDl5YHTSZiqkhRMbjyjkghR7NETpm3apzTfxa4QfoYCiTB8rhBkecT6tXtBqBeBDJf2= [facility] Work Phone: Performing Lab o2nkjXTkVDJybLRkYrWfJWNpOMCjr4dzKRPfhBTyWxTuFmSyDoSnCtfnpBJnTGQoWpSua2msy149vDOs r2blQGQsFbB6cWDeYTFf gIAmU160XMQnUGfmj3tpv4UhWMQbgQWfp5S3CUUBmykzhQn7oKsaC67rz0A2GuzcV3vbFXYtDYFhP8Ix TF5zFKNnLwk6SJU5BOQ4 OKWxTVWdZ3JaNW8xBSDzxJLyURc5d1tbeKagRWYnFKX5u9tmRCxzgbSeDL1hht6ryTl0a8csdePoNBOs OHXpgAFTMGCtE2TtlUhf Aa8tjGx9wErcKhuxJST4Ooa1CQ4ilb35dpk5bXdlUNTsfqasYmS3OZqrFMAhkcziDWc4HQubKXEgvVY4 MUAhsXSqD9XkUAqyVH7u hgm1RXU8EKzbOVUkUvE6AOKnbCYiXTHflKajUCpiy421NIU9XtLcIT5zM5Bce7Y9rX4qqPFlPPEhxUVs CvJsWOWjpz6gwNAbCAay h1BrYBX1ejR1sHLssYCxRCBxGF78Qlydd0WvPuwfq3KnM40yyMG7PKprl7yoTA7dBoM7riUoYZotz9np eD5yCuY5UYqmPV3dXJ3j HAUttH1vhyxfGVQrHfCpsxoyKCZccJjwixIzEr5shXatCWV2BIkaQ5reeC3lJiU5ECzwM9pdqV5jPQd6 UOempVF7FBJfyD2xVU9x wlxbr7ebYIbjBCoqHJNlzrW4vdHbSNZfnFUfD5KbdF7lHHDzZG4kkpemz5tiHJW0LRjyTTQoVVZ3IfUx LWFhy6Fwwog9ZqDvz0Km aXMzUCnyU18qo800CGZbplRtI7zeeFJejkbreMVhsjyjNDumlgQ4JOXfRHBlSVwmGSMeVWCfPwQibXVc ZzEwMzNcaGljaFxmMVxk SkNeGTUnPEqmZ2eqLgEjKkMxSaFOdOUisk0wbAfpMBeajYZxeSTdjJL4rU7eBNXatpUxsp1oABOchFHM lVP7WLommlQsK4rlykyc MOT2AGTkSFC8M3inQDPGegRkUIKeFSLgqIYcTCVXGJN6JQI3TAYeSEVRYSHhKDL9VPO0OXGvKHLliQEz XHBhclxwYXJkXHBsYWlu ZWRsBMRiXpFhsMjyfD7iRkWkOnMyKpblUZ8aDJZnC7nskMKdFXTcOKMtD4cyOdYwoE0rzZdsTPxaRxNo ZnMyMlxsdHJjaCBMYWJv ycK0r7A7FJxbjYYjevcqZRrhqdCoMJloidhjEKIsQPfqF7noUyAhTGWzcYxkZXncs3KtRYOiLTVmAiWi SZqhJVP1e0D5UEqahJCqvfKLZvMFXK0ijKQqkwpoDT1JKqqdATE4A[facility]ahbl[facility] Work Phone: [facility] Work Phone: EGD Study observation Narrativeon 26-40-9669Cvdglbspp Study observation (narrative)[facility] CenterCITRATE URINE 24HRon 07-11-2022 Citric Acid, U, 92zd395 mg/24 xtSgivgv581-8168Tix [facility] HospitalComment on above:Result Comment: This test was developed and its performance characteristics determined by [employer]. It has not been cleared or approved by the Food and Drug Administration.Performed By: #### ALPHPHN #### [facility] [address] [place] [address] Dr. Li NagelCitric Acid, Omfxk050 mg/LNormalUndefinedMagruder Memorial Hospital Comment on above:Performed By: #### ALPHPHN #### [facility] [address] [place] [address] Dr. Li NagelOXALATE 24HR URINEon 78-75-9564Zzhqphis, Urine19 mg/LNormal UndefinedMagruder Memorial HospitalComascension [facility] on above:Performed By: #### OX24HR #### [facility] [address] [place] [address] Dr. Li NagelOxalates, Urine 24hr19 mg/24 hrNormal4-31The [facility] Comment on above:Performed By: #### OX24HR #### [facility] [address] [place] [address] Dr. Li NagelMAGNESIUM 24HR URINEon 62-19-7082Jfndmlfwf 24hr Urine45.0 mg/24 dvNfrsbq94.0-293.0The [facility] HospitalComasc[facility] on above:Performed By: #### IMMUN G #### [facility] [address] [place] [address] Dr. Li NagelMagnesium UR4.5 mg/dLNormalNot Estab.The [facility] HospitalComment on above:Performed By: #### IMMUN G #### [facility] [address] [place] [address] Dr. Li NagelPHOSPHORUS 24HR URINEon 19-69-2193Txcvcfyzbm, Urine51.4 mg/dL NormalNot Estab.The [facility] HospitalComasc[facility] on above:Performed By: #### PHOS 24 #### [facility] [address] [place] [address] Dr. Li NagelPhosphorus, Urine 26ii965 mg/24 lnRfgjbv855-8615Pll [facility] on above:Performed By: #### PHOS 24 #### [facility] [address] [place] [address] Dr. Li NagelURIC ACID 24 HR URINEon 38-80-3180Ldqd Acid, Urine64.0 mg/dL NormalNot Estab.The [facility] HospitalComasc[facility] on above:Performed By: #### ALPHPHN #### [facility] [address] [place] [address] Dr. Li NagelUric Acid, Urine 96wa847.0 mg/24 feKfmmck222.7-902.1The [facility] on above:Performed By: #### ALPHPHN #### [facility] [address] [place] [address] Dr. Li NagelCALCIUM 24 HR URINEon 57-26-1083ERNH, 24 HR UR155.0 mg/24 hr Ylgrpe730.0-300.0The [facility] on above:Performed By: #### IMMUN G #### [facility] [address] [place] [address] Dr. Li Ingram ZRYJBKS61.5 mg/dLNormal5.1-21.0The [facility] on above:Performed By: #### IMMUN G #### [facility] [address] [place] [address] Dr. Li Ingram TOT QQQ4003 ml/24 HRNormalThe [facility] HospitalComasc[facility] on above:Performed By: #### IMMUN G #### [facility] [address] [place] [address] Dr. Yilan ChangPerformed By: #### ALPHPHN #### [facility] [address] [place] [address] Dr. Li Hawthorne 24 HR URINEon 12-26-8533HMUV, 24 HR JX5358.80 mg/24 hr Critically smbf357.00-1,800.00The [facility] HospitalComment on above:Performed By: #### ALPHPHN #### [facility] [address] [place] [address] Dr. Li Bowling PSPCP126.18 mg/oPNmfehj62.00-300.00The [facility] Comment on above:Performed By: #### ALPHPHN #### [facility] [address] [place] [address] Dr. Li Bell INTACTon 90-00-6368CJL, Wbatpo47 pg/wLLweuhh88-18Yav [facility] HospitalComment on above:Performed By: #### HEPACUT #### [facility] [address] [place] [address] Dr. Li Llanos 24 HR URINEon 31-40-4276GE, 24 HR UR149 mmol/24 hrNormal 40-220The [facility] HospitalComment on above:Performed By: #### ALPHPHN #### [facility] [address] [place] [address] Dr. Li Leivaum (U) [Moles/Vol]149 mmol/LCritically rfxm93-97Yop [facility] HospitalComment on above:Performed By: #### ALPHPHN #### [facility] [address] [place] [address] Dr. Li Lema 40-01-2791Lvsj nitrogen [Mass/Vol]11.0 mg/dLNormal7.0-18.0 The [facility] HospitalComment on above:Performed By: #### BUN, URIC, CA, K, NA, CL, CO2, CREA #### [facility] [address] [place] [address] Dr. Li NagelCALCIUMon 37-70-8875Uznczjr [Mass/Vol]9.0 mg/dLNormal8.5-10.1The [facility] on above:Performed By: #### BUN, URIC, CA, K, NA, CL, CO2, CREA #### [facility] [address] [place] [address] Dr. Li NagelCHLORIDEdevon 34-83-7252Apasdxug [Moles/Vol]107 mmol/HUaipry03-844 The [facility] HospitalComasc[facility] on above:Performed By: #### IMMUN G #### [facility] [address] [place] [address] Dr. Li NagelCO2on 32-28-1025AA9 [Moles/Vol]29.2 mmol/VLkyiml81.0-32.0The [facility] on above:Performed By: #### IMMUN G #### [facility] [address] [place] [address] Dr. Li NagelCREATININEdevon 56-27-2701Uzifrwhgrt [Mass/Vol]0.97 mg/dLNormal 0.55-1.02[facility] on above:Performed By: #### BUN, URIC, CA, K, NA, CL, CO2, CREA #### [facility] [address] [place] [address] Dr. Li McdonaldGFR-AF EGYPTIAN>60Normal>=60[facility] on above:Performed By: #### BUN, URIC, CA, K, NA, CL, CO2, CREA #### [facility] [address] [place] [address] Dr. Li McdonaldGFR-NON AF EGYPTIAN>60Normal>=60[facility] on above:Performed By: #### BUN, URIC, CA, K, NA, CL, CO2, CREA #### [facility] [address] [place] [address] Dr. Li NagelNAdevon 78-95-4762Mkazst [Moles/Vol]143 mmol/LPixbke438-169Fof [facility] on above:Performed By: #### IMMUN G #### [facility] [address] [address] [address] Li NagelPOTASSIUMon 53-47-7764Rahswqobh [Moles/Vol]3.6 mmol/LNormal 3.5-5.1The [facility] HospitalComment on above:Performed By: #### IMMUN G #### [facility] [address] [address] [address] Li NagelURIC ACID SERUMon 23-65-6519Jzhwa [Mass/Vol]4.7 mg/dLNormal 2.6-6.0The [facility] HospitalComment on above:Performed By: #### BUN, URIC, CA, K, NA, CL, CO2, CREA #### [facility] [address] [place] [address] Dr. Li NagelSURGICAL PATHOLOGYOrdered By: Karan Nieto on 99-06-5817Czpr ReportSurgical Pathology Report Case: [id number] Authorizing Provider: Carol Winn MD Collected: 06/30/2022 11:43 AM Ordering Location: Ambulatory Surgery Received: 06/30/2022 10:42 PM Pathologist: Karan Nieto MD Specimens: A) - DUODENUM BIOPSY, r/o celiac B) - STOMACH BIOPSY, r/o H pylori [facility] Work Phone: Diagnosis Comment r6xxnDKiHXJpdPGyJWLlVPapkaMiFFVtzXIxT7TqrkxsFHaaUC8mNN4hnUzgdENnsMKcXFOlWwNlf2px h272tGCfh5ibMQXNwsxq nPm8uYioE91nn9B7YrdfJ88onPOrULS7UNLzAOLtfREmDJDhDXU6OSVvgZAtU8tcEIJhFQ6vquluOVqj MUdxMZUjvZU8UFMddJOy Q9BcNDKcQBliRHOqixs7SmGsPa8pgFAfvJhfGFaePBJjYKQyWIbtXYQpXpHmOZ7tZU5qvbFee3JaAUva dHJhZXBpdGhlbGlhbCBs lY5idW0dxTDoqwgwfV7jgHueDAKdl6PdX6Xza8DwnnesyR31mjApMi1ban8bfBb5sDZeMMZkQRdaYePq k6OvecOfovYwg2NwW2sf gCcrqeY6lFXpFUWxpAubKcWjtGWpZIXsNFPhZQFpjRdaqgDye83fxZSqe10sFES1V1ytTDGukDMezVno MXQpb3Cxn2TsMWmyDzCb pQkcbxDbnV4sdAEduA6vWRhsxDoct0CpP6GokfNjbLatbpfvlP5iGTW5pE1iYOeaUD2jNNCnnITcqQOp mSUuyBkgqkCyHOUzsY8s K6YrAEAoktXwsNE3qN5fHLuiqQioNUFieh9pmwvgtJZao4Cfm6ejJ8jzAIO6qOWeNPMfqZUrWxPcS77s b4xnRHFrRGPsEsOfjYkokVTfcOu7WOobRPaiVCMcOP7zhFGjfK==W[facility]wzjxvw [facility] Work Phone: FINAL DIAGNOSIS x1bpqWZoTHTfuQWjMUVbNWsexdGdNPFjaCDvH8KcwiicZLqrLY9uKQ8saWtkkJPbaXBuKQSqBrBgq7ei g753wMOax2ukDPFXhwqp fOc5jXjeJ37qt2E8GpgnC23gmGKdZCZ1VLMwDKNfaXIhRYGyHXY5KSSpgEHaZ9kjQSApJT4lvjiwEXgg FLgeNQHfkLM9PVNjtRGq I4ImYKLiZZjfCZKamvr5IlBdLz8lwRBnhQxbKNqpCRHhANMjQFgtXBKiLrOoTS6aLYXuKZAduH4zRQWf z6AvrXfbiTMdTE5fO17p cFgwoW10CUN3lW1tvCBlyFScs9Elv9x6sVJvs3LaKWixdibseY79gpOgbwQgkHOhQ8Z5byKxEW0xYQem H0IxYLTdFOGltcIiCWCg eQQhHOggDNdaiAsptXcmP2a2YMR7XQHvZBNmt98aZI38LaxiXELurDPuUGXaSOE5a94fK7voHXXwi5Jz rJziaWRtHO2wN4CysDSu InWmyYzcbLuiHB56U23kFAD8nUKuXZYnwj6zrUSgCZS1sOHcDBjuqUnxc6IdT6WvnnBcmGshdlslPEUy s2BoNVDoAJNeTTG9jqj7xOGcPDVcep1=[facility] Work Phone: Gross Description c3vwkMErOVHqrSBOOMEeCLSqVD1hqXsqwYi2lGhqYBYzzgA0fDLgGSvbc3jgXUF4q8xiciCGUmatUXTu OMwbDEQvrkkfYbW8FAag CPNersepLBw5TRbbPDPbvCT7IOQssMKgE0VrHASwUK4evyt6UIC5TZqyVBEgXzX8XQBwJiVyWdnnNKi5 CKGjqvN1Fsk1GFEzRBVb qRMoh4P1KLfudculMTEroBPvX691NXtna1AflYLoCAyxvIEuXWSXVeniDyxkcOuyw6EcsDOsLDklFWJg XSUfDKyqmnweUWt8NSEg IGxkhOTqBM8adDmxAlpnnJduc6JpaVBwODsrPWScWMWdDSfgFKBbIQ3AYePpPPE8Nom7Tip3BnD5IHu6 OSBPVlMgIiAgMjgxODU4 GZYpMXe8IPj0UOrARrD6EVKjOFurXNUpIDQ3MTj0DKdueHCrGTpdVxZGoyuygJJrFIZfPSjwkuG3PRUi RVvqOJKvIMLHJ0DBKoHO WLBOM9ZPVPvgAGUoDEtkLJTbL88nu9MQd6MjTG3CVDe4ugEfphsvoQ7iEFBthjEyRJehnTJtE2tpAhLi MCBSZWNlaXZlZCBpbiBm i6JeALxioyVemeBjwXEuiAnuyLEzpBuxT1QoFN2rPVYhnblds03luIX9rJCgiFTzKSxbptDkSAPjmwyx fR2tLA49QSjmAH6yAUhx BP2cQAPiGfLJi5WudVd9LNF8Jw9zjZElWTIpitKzlsFqW9Dqk3B2tTUgUOopWZBlJ22av4LMs5AiHVIm x9sogXerp3JldACtQLtx YTFwnRPrQPfjoC7bLfLnb9altJh3WXpntdJ3CITuzi9pxLureQ7bWAh3PEayDGLhT0RwC8NeHVcyGQS3 MTAwMiBcXGRiICBPVlIg EvZbKvS3YMQ2AFSqGHy9YVwnJ5QWZZRmGPP2AJg0RDk2XrU1LTd4CAQTTr3eWRxbGcc3LZHtKNA3HXw5 OSBcXHQgMiBcXGYgQXJp GVviYOoynQWvED4xzDozjPKufajeomC4QGGiNMamIPCrVHAPO88AP1txPtyZZIFXVHKsndFJJqmjkEhc TmVzdERvYzEgDQpcbHRy rAWvPKqeshOqsxumZYWWUlwfmOLjtAchkhPvOXHaN5MjjzDzZWrnWBWopf5tfKpuYJIlIMH4i01ljYck G3XpWN7kZUAvshbdi99l pLW0mTKbiVNsLUsxzeZpDSGyzvrypS1mQA3iXUpxQG3rRHzqJH9rVBCzSoHRf4HmjEo7TCI8Mh6njOZe HRMlxqDtvqAgS0Pyl4X1 oMUhDCmaBVPtYUosjFAcNX9KX8Kxv3OzLEkcfUldLQSec47yzJRqJq9kcJCgOVA0JQLvGGEsoEUlVTDD yXxazCWtLKk7QFVhUPFh qZpaAMC0KR3dVQLkRESaaXPyYUvaU7jfFOYtUFXecPScRY4VFCHygsPCZnwHHQVaLeCsCvGcEoSbGMv5 MyBBTVxwYXIgDQpcZXBp F73fq9CXx0OjFIYwa7boaIlgk0EwpQEfQZxyKDGyyGAyQZqdrT9wHrVhf2ylvUd9HPioomT1KZXrsm1b sHvutQ0nWRvut9qoXNC6 ZBGscLDqsTGxTQblpRoodS0fNjVmJks7HFchXDGcK7DrA5YvtdQ3AMZmQVjwGXAhXEFjOXb8 [facility] Work Phone: Performing Lab f9abmMAtURExtPLaZpCuGQDaWFPru2hlOGCwgIBaBvNsBpQfFvYqZymjzQNrFEIiCcPls5wdi011lGDe l7klCWFaTxA5hUDjOHYf pNAvZ863TJBoTKysx2wiu5BhUDArnNAzz7P4JOIBavwdoXd9oEzsT22je7S6DrtcQ7fbNGGfIVWvZ6Uz JR8gUZVpIhi3YVE0YUQ1 QQZxXDBjI3IuZT2pNBVstEZtMJx2v0wzeHpiHOPkGYX6j3srXXsqmuOjYM6yig1yyWf1e6rcffBwXBCr CWKftINPERWaL3HyuYhp Br8zfGq4tSejPvjdDQH6Nji5RP2dvp04mca5rOclXBOzzsjuXtJ2AHpzYJHpnkajHOc0YZlmFBZseVE9 TENuaVCaA5ZtSXggEG7a ylm5FEZ6BSuxQASvRhY9GVNjmXSeXDFfuUosGKrkl306POX2NjKcGE7eT8Flr1G8fL0cdPArDRAmeJBz HeXkEBWeix0sxLTfDQpn x4WpGQI3ehQ2lJFnvPEuETCoUB39Qsgre6FbQpxny7CjC54juBQ9PZevf1wdLQ1xAcF2zxOeFGvph8fc zK7jBtU1HObiXY6uSQ6h JWFgsH9vokygYNHnStAmnjcoDEDawVjbduSsXu3mmKpgLVP0CQqiK3hcwW1tVfD9BStvY0yivZ8iNUp1 GSrlkKG0MJUmxU9vBW1z yrzjt5lgPTsvMTlmKQVrzxF5wjTpSXDzfZFpV4MegN9zBFEyRH0gbjqau6idUVV1XBluYWZtMHQ9SxFg MIEmq6Gcdlt4DiGtd9Qm iIYkTEjrV14qn373VCNtcrZdU1frfXQigopluDYcuirfECisyfH2HXBhDTWtIEttPAHnNEHgZcJuzRVz ZzEwMzNcaGljaFxmMVxk CxVySFHmQOxyQ2ewKwGuCsTsVyRRxXSidl8ntSgjBKdevYKrmZPjvIJ3aD7zMSUapjDkgr5jNISgpZHO uYE7HVueecQxY6sfvzub MRD3NQBuBDS9B5qjOOWBnnVnWHPhSSIoqAKcEUFGVUD3ZHP2UYVmPYQPZNJnCIO8CAZ5MBWpNYVoaDIu XHBhclxwYXJkXHBsYWlu MQKaWLZiUgWokIlwmG8kPeAsUlOoCoyvHQ2sAZMkX2srbRHfCKUhMVApO9aiQxPabF6pvXgqRGyiXuEw ZnMyMlxsdHJjaCBMYWJv vtJ9h1H9LJcuzSXvlebtNEzvpzAmFYlqhervWOBjWTkoV8meBvSiAQGtuRsrOWpns2KnXZXwPJLgMqRf MLbfCVO4a4Z5FIflrYYcpbDGEiAZUW7ugFEsrjzvXD7UNrtxYHZ6Yvdyizsvg Clinic Work Phone: [facility] Work Phone: egD Study observation Narrativeon 45-54-1088Lznaf [facility] Patient Name: Orion Harper Procedure Date: 06/30/2022 11:41 AM Date of : 1990 Admit Type: Outpatient Age: 31 Room: [place] [address] Gender: Female Note Status: Finalized Attending MD: [...] verified by the physician, the nurse, the guest relations manager and the veterinary laboratory technician in the procedure room at [...] - Non-bleeding gastric ulcers (more content not included)...PROVATIONCleveland Clinic Euclid HospitalRadiology Study observation (narrative)[facility] HospitalXR KUB 1 VIEWon [id number] KUB 1 VIEWEXAMINATION: XR KUB 1 VIEW [...] Electronically authenticated by: JACKSON BUTLER Date: 2022-06-30 07:02NoTogus VA Medical CenterUS ABD RT UPPER QUADRANTon 59-99-0017Vgyjmdgry ClinicCT ABD/PEL WO IVCONon 87-99-5008Kprxrqfle ResultACTIONABLEAbnormalCleveland ClinicNo Panel Informationon 06-18-9337Aemhbnrah LvthvoEMLRH-8-VNOZXSORSCD PHENOTYPINGon 15-49-7241Tpwpk-1-Antitrypsin, Yqjrj259 mg/tNXvabpy272-717VieMagruder Memorial Hospital Comment on above:Result Comment: Performed at: CBPerformed By: #### ALPHPHN #### [facility] [address] [place] [address] Dr. Li NagelPhenotype (PI)[facility]Com[facility] on above: Result Comment: Phenotype Population A-1-AT [...] confirm phenotype. Performed at: BNPerformed By: #### ALPHPHN #### [facility] [address] [place] [address] [address] Li AmayaTARY HEMOCHROMATOSIS, DNA ANALYSISon 64-66-1839Atytfhlogs HemochromatosisComDetwiler Memorial Hospital on above:Result Comment: Result: c.845G>A (p.Agd447Zoh) - Not Detected c.187C>G (p.Oug52Vws) - Not Detected c.193A>T (p.Fmi96Vyl) - Not Detected Not associated with increased [...] for patients who are homozygous for c.845G>A (p.Ihm845Rlh) and have yet to experience clinical symptoms. . Comments: The most common HFE variants associated with hereditary hemochromatosis are c.845G>A (p.Nav399Bbh), c.187C>G (p.Jse47Rnf), c.193A>T (p.Wzq32Jfc). While patients homozygous for c.845G>A (p.Kwf616Ehi) are the most likely to present clinical symptoms, less than 10% develop clinically significant iron overload with tissue and organ damage. . Genetic counseling is recommended to discuss the potential clinical implications of positive results, as well as recommendations for testing family members. Genetic Coordinators are available for health care providers to discuss results at [phone]). . Test Details: Three variants analyzed: c.845G>A (p.Hoj891Uqp), commonly referred to as C282Y c.187C>G (p.Zyu60Nzj), commonly referred to as H63D c.193A>T (p.Xyo75Lmn), commonly referred to as S65C . Methods/Limitations: [...] developed and its performance characteristics determined by [employer]. It has not been cleared or approved by the Food and Drug Administration. . References: Brodie BR, Yoav PC, Deborah KV, Raymond LW, Ramsey ; [employer] Liver Diseases. Diagnosis and management of hemochromatosis: 2011 practice guideline by the [employer] Liver Diseases. Hepatology. 2011 Oct;54(1):328-43. doi: 10.1002/hep.00428. PMID: 65816862; PMCID: LVN1944850. Cora G, Olegario P, Fabio DW, Tabatha H, Love O, Zev S, Vazquez I, Kofi M, Sunitha S. [facility] best practice guidelines for the molecular genetic diagnosis of hereditary hemochromatosis (HH). Eur J Hum Margaret. 2016 Jul;24(4):479-95. doi: 10.1038/ejhg.2015.128. Epub 2014Oct 29. PMID: 54438046; PMCID: UFF2454020. . Anitra Hager, PhD, [facility] Dm Reyna, PhD Alexandro Rodriguez, PhD, FAC Jhony Hammond, PhD, [facility] Oumar Avila, PhD, [facility] Rob Brand, PhD, FAC Pascale Gracia, PhD, FAC Lala Marvin, PhD, FACMGPerformed By: #### HEPACUT #### [facility] [address] [place] [address] Dr. Li Baker by IFAon 45-46-7192Ihdawtpcnyk Antibodies, IFANegativeNormal [facility] HospitalComment on above:Result Comment: Negative <1:80 Borderline 1:80 Positive >1:80 ICAP nomenclature: AC-0 For more information about Hep-2 cell patterns use ANApatterns.org, the official website for the International Consensus on Antinuclear Antibody (DENY) Patterns (ICAP).Performed By: #### ALPHPHN #### [facility] [address] [place] [address] Dr. Li NagelCERULOPLASMINon 32-82-4981Uxpaspotghzub15.9 mg/pSBuaudj30.0-39.0 [facility] on above:Performed By: #### HEPACUT #### [facility] [address] [place] [address] Dr. Li NagelHEPATITIS A AB IGMon 85-36-5732Maf A Ab, IgMNegativeNormal NegativeUC Health on above:Performed By: #### IMMUN G #### [facility] [address] [place] [address] Dr. Li RodríguezOGLOBULIN G INDEX SERUM OR CSFon 18-80-0977Xymxqaj [Mass/Vol]4.8 g/dLNormal3.8-4.8The [facility] HospitalComascension [facility] on above:Performed By: #### IMMUN G #### [facility] [address] [place] [address] Dr. Li Briggs, CSFNSPINLNPremier Health [facility] on above: Result Comment: Test not performed. No spinal fluid received. contacted Radha at your facility on 21-84-8404Uzgirnpzo By: #### IMMUN G #### [facility] [address] [place] [address] Dr. Li DuttaF IgG IndexUPTCALNormalThProMedica Defiance Regional Hospital on above: Result Comment: Unable to calculate result since non-numeric result obtained for component test.Performed By: #### IMMUN G #### [facility] [address] [place] [address] Dr. Li Patel, Quant, CSFNSPINLNormalUC Health on above: Result Comment: Test not performed. No spinal fluid received. contacted Radha at your facility on 69-06-8098Exsgaoyvr By: #### IMMUN G #### [facility] [address] [place] [address] Dr. Li NagelIgG/Alb Ratio, [place] [facility] INTERCOMMUNITY HOSPITALUPTCleveland Clinic South Pointe HospitalComascension [facility] on above:Result Comment: Unable to calculate result since non-numeric result obtained for component test.Performed By: #### IMMUN G #### [facility] [address] [place] [address] Dr. Li NagelImmunoglobulin G, Qn, Nfakx510 mg/fTXjhfkr305-5558Bgp [facility] HospitalComment on above:Performed By: #### IMMUN G #### [facility] [address] [place] [address] Dr. Li NagelLIVER-KIDNEY MICROSOMAL (LKM) ABon 44-23-2207Lguvp-Kidney Microsomal Ab1.3 UnitsNormal0.0-20.0[facility] on above:Result Comment: Negative 0.0 - 20.0 Equivocal 20.1 - 24.9 Positive >24.9 . LKM type 1 antibodies are detected in patients with autoimmune hepatitis type 2 and in up to 8% of patients with chronic HCV infection.Performed By: #### HEPACUT #### [facility] [address] [place] [address] Dr. Li NagelMITICHONDRIAL (M2) ANTIBODYon 43-81-5607Htgkgdebbuyeg (M2) Antibody<20.8Jfdtnp3.0-20.0[facility] on above:Result Comment: Negative 0.0 - 20.0 Equivocal 20.1 - 24.9 Positive >24.9 . Mitochondrial (M2) Antibodies are found in 90-96% of patients with primary biliary cirrhosis.Performed By: #### ALPHPHN #### [facility] [address] [place] [address] Dr. iL NagelSMOOTH MUSCLE ANTIBODYon 76-75-9374Bzkif (Smooth Muscle) Antibody 9 UnitsNormal0-19[facility] Memorial HospitalComascension [facility] on above:Result Comment: Negative 0 - 19 Weak positive 20 - 30 Moderate to strong positive >30 . Actin Antibodies are found in 52-85% of patients with autoimmune hepatitis or chronic active hepatitis and in 22% of patients with primary biliary cirrhosis.Performed By: #### ALPHPHN #### [facility] [address] [place] [address] Dr. Li NagelFERRITINon 14-62-7134Lpdykdiv [Mass/Vol]319.0 ng/mLCritically high6.2-137.0[facility] on above:Performed By: #### ALPHPHN #### [facility] [address] [place] [address] Dr. iL Calderon ACOG PANEL 2: 30 to 65on 04-28-2022..NormalThe [facility] on above:Result Comment: Performed at: BAPerformed By: #### IMMUN G #### [facility] [address] [place] [address] Dr. Li Siddiqui Gdln ACOG Gacwcaq20-43XqnqbsGvdWilson Street Hospital on above:Performed By: #### IMMUN G #### [facility] [address] [place] [address] Dr. Li NagelDIAGNOSIS:CommentNoWilson Street Hospital on above: Result Comment: NEGATIVE FOR INTRAEPITHELIAL LESION OR MALIGNANCY. Performed at: BAPerformed By: #### IMMUN G #### [facility] [address] [place] [address] Dr. Li Cm AptimaNegativeNormalNegativeUC Health on above:Result Comment: This nucleic acid amplification test detects fourteen high-risk HPV types (16,18,31,33,35,39,45,51,52,56,58,59,66,68) without differentiation. Performed at: =GPerformed By: #### IMMUN G #### [facility] [address] [place] [address] Dr. Li Cm Genotype ReflexCommentAshtabula County Medical Center on above:Result Comment: Criteria not met, HPV Genotype not performed. Performed at: BAPerformed By: #### IMMUN G #### [facility] [address] [place] [address] Dr. Li NagelMethodology:CommentAshtabula County Medical Center on above: Result Comment: This liquid based ThinPrep(R) pap test was screened with the use of an image guided system. Performed at: WBPerformed By: #### IMMUN G #### [facility] [address] [place] [address] Dr. Li Morenoe:CommentAshtabula County Medical Center on above:Result Comment: The Pap smear is a screening test designed to aid in the detection of premalignant and malignant conditions of the uterine cervix. It is not a diagnostic procedure and should not be used as the sole means of detecting cervical cancer. Both false-positive and false-negative reports do occur. . Performed at: WBPerformed By: #### IMMUN G #### [facility] [address] [place] [address] Dr. Li NagelPerformed by:CommentAshtabula County Medical Center on above: Result Comment: Gretta Holly, Travel Money Advisor (ASCP) Performed at: BAPerformed By: #### IMMUN G #### [facility] [address] [place] [address] Dr. Li Phan adequacy:CommentAshtabula County Medical Center on above:Result Comment: Satisfactory for evaluation. No endocervical component is identified. Performed at: BAPerformed By: #### IMMUN G #### [facility] [address] [place] [address] Dr. Li BurroughsPATITIS PANEL, [facility] 14-61-2724WQqQu ScreenNegativeNormal NegativeThe [facility] HospitalComment on above:Performed By: #### HEPACUT #### [facility] [address] [place] [address] Dr. Li NagelHCDalton AB<0.6Modwga7.0-0.9The [facility] HospitalComment on above: Performed By: #### HEPACUT #### [facility] [address] [place] [address] Dr. Li Mcclellan Ab, IgMNegativeNormalNegativeThe [facility] HospitalComment on above:Performed By: #### HEPACUT #### [facility] [address] [place] [address] Dr. Li NagelHepriyank B Core Ab, IgMNegativeNormalNegativeThe [facility] Comment on above:Performed By: #### HEPACUT #### [facility] [address] [address] [address] Li NagelInterpretation:CommentWhite HospitalComment on above:Result Comment: Negative Not infected with HCV, unless recent infection is suspected or other evidence exists to indicate HCV infection.Performed By: #### HEPACUT #### [facility] [address] [address] [address] Li NagelUS PELVIS AND TRANSVAGon 95-35-3785QQ PELVIS AND TRANSVAG EXAMINATION: US PELVIS AND [...] Electronically authenticated by: LAURIE CRUZ Date: 2021-12-22 09:50White HospitalUS ABD RT UPPER QUADRANTon 73-62-2727Tqotffnsq ClinicUS PELVIS AND TRANSVAGon 46-35-7484MO PELVIS AND TRANSVAGEXAMINATION: US PELVIS AND TRANSVAG [...] Electronically authenticated by: LAURIE CRUZ Date: 2021-10-28 13:01White HospitalVAGINITIS/VAGINOSIS DNA PROBEon 55-19-9893Hbefurr species NegativeNormalNegativeMagruder Memorial HospitalComment on above:Performed By: #### IMMUN G #### [facility] [address] [place] [address] Dr. Li Hancock vaginalisNegativeNormalNegativeMagruder Memorial Hospital Comment on above:Performed By: #### IMMUN G #### [facility] [address] [place] [address] Dr. Li Maza vaginalisNegativermalNegativeMagruder Memorial Hospital Comment on above:Performed By: #### IMMUN G #### [facility] [address] [place] [address] Dr. Li Candelario AUTO DIFFon 21-75-3989RAHC #0.0 103/ulNormal0.0-0.1Mag[facility]uder Memorial HospitalComment on above:Performed By: #### ALPHPHN #### [facility] [address] [place] [address] Dr. Li Meredithsophils/100 WBC (Bld)0.4 %Normal0.2-2.0[facility] Comment on above:Performed By: #### ALPHPHN #### [facility] [address] [place] [address] Dr. Jefferson ChangEViki #0.2 103/ulNormal0.0-0.7The [facility] HospitalComment on above: Performed By: #### ALPHPHN #### [facility] [address] [place] [address] Dr. Li Mcdonaldosinophils/100 WBC (Bld)2.6 %Normal0.9-7.0The [facility] Comment on above:Performed By: #### ALPHPHN #### [facility] [address] [place] [address] Dr. Li Mcdonaldrythrocyte distribution width (RBC) [Ratio]12.6 %Lqvljz63.0-15.0 The [facility] HospitalComment on above:Performed By: #### ALPHPHN #### [facility] [address] [place] [address] Dr. Li NagelHematocrit (Bld) [Volume fraction]40.0 %Qdyidc33.0-48.0The [facility] HospitalComment on above:Performed By: #### ALPHPHN #### [facility] [address] [place] [address] Dr. Li NagelHemoglobin (Bld) [Mass/Vol]13.3 g/yDPbyniq75.0-16.0The [facility] HospitalComment on above:Performed By: #### ALPHPHN #### [facility] [address] [place] [address] Dr. Li Gonzalez #0.06 10e3/ulCritically high0.00-0.03The [facility] Comment on above:Performed By: #### ALPHPHN #### [facility] [address] [place] [address] Dr. Li Gonzalez %0.9 %Critically high0.0-0.5The [facility] HospitalComment on above:Performed By: #### ALPHPHN #### [facility] [address] [place] [address] Dr. Li Castaneda #2.2 103/ulNormal1.2-3.8The [facility] HospitalComment on above:Performed By: #### ALPHPHN #### [facility] [address] [place] [address] Dr. Li Tenamphocytes/100 WBC (Bld)31.0 %Zlxcol26.5-60.0The [facility] HospitalComment on above:Performed By: #### ALPHPHN #### [facility] [address] [place] [address] Dr. Li AlexandraUAL DIFF REQNONormalThe [facility] HospitalComment on above: Performed By: #### ALPHPHN #### [facility] [address] [place] [address] Dr. Li Rod (RBC) [Entitic mass]31.4 mdSisoew33.7-34.0The [facility] HospitalComment on above:Performed By: #### ALPHPHN #### [facility] [address] [place] [address] Dr. Li Rod (RBC) [Mass/Vol]33.3 g/pAObpknk61.9-35.2The [facility] HospitalComment on above:Performed By: #### ALPHPHN #### [facility] [address] [place] [address] Dr. Li Rod (RBC) [Entitic vol]94.3 uQXwlszv92.0-99.0The [facility] HospitalComment on above:Performed By: #### ALPHPHN #### [facility] [address] [place] [address] Dr. Li Wagner #0.5 103/ulNormal0.3-0.8The [facility] HospitalComment on above:Performed By: #### ALPHPHN #### [facility] [address] [place] [address] Dr. Li Kerrocytes/100 WBC (Bld)6.9 %Normal1.7-12.0The [facility] Comment on above:Performed By: #### ALPHPHN #### [facility] [address] [place] [address] Dr. Li Ortiz #4.1 103/ulNormal1.4-6.5The [facility] HospitalComment on above:Performed By: #### ALPHPHN #### [facility] [address] [place] [address] Dr. Li Rangelutrophils/100 WBC (Bld)58.2 %Rjvqte51.0-75.0The [facility] Centerment on above:Performed By: #### ALPHPHN #### [facility] [address] [place] [address] Dr. Li NagelPlatelet mean volume (Bld) [Entitic vol]11.0 fLNormal9.5-13.5The [facility] HospitalComment on above:Performed By: #### ALPHPHN #### [facility] [address] [place] [address] Dr. Li NagelPLT211 103/tvTzwndw606-178Oeu [facility] HospitalComascension [facility] on above: Performed By: #### ALPHPHN #### [facility] [address] [place] [address] Dr. Li NagelRBC4.24 106/ulNormal4.20-5.40The [facility] HospitalComment on above:Performed By: #### ALPHPHN #### [facility] [address] [place] [address] Dr. Li NagelWBC7.0 103/ulNormal4.0-11.0The [facility] on above: Performed By: #### ALPHPHN #### [facility] [address] [place] [address] Dr. Li NagelCT ABD/PELV W CONon 48-02-9806WF ABD/PELV W CONEXAMINATION: CT ABD/PELV W CON [...] authenticated by: MARIA DOLORES MOON Date: 2021-10-20 14:53White HospitalOCC BLD IMMUNO SCREENon 40-61-2633QGBJYO BLOODNegativeNormal NEGATIVEThe [facility] HospitalComment on above:Performed By: #### OBSCRN #### [facility] [address] [place] [address] Dr. Li Kwon 14(COMP METB)on 71-44-9694Axomqfa [Mass/Vol]3.7 g/dLNormal 3.4-5.0The [facility] HospitalComment on above:Performed By: #### ALPHPHN #### [facility] [address] [place] [address] Dr. Li NagelAlbumin/Globulin [Mass ratio]1.2 {ratio}NormalThe [facility] HospitalComment on above:Performed By: #### ALPHPHN #### [facility] [address] [place] [address] Dr. Li Shelby [Catalytic activity/Vol]86 U/ULhtcmj77-467Fut [facility] HospitalComment on above:Performed By: #### ALPHPHN #### [facility] [address] [place] [address] Dr. Li Delgado [Catalytic activity/Vol]109 U/LCritically ievm91-08Qcy [facility] Centerment on above:Performed By: #### ALPHPHN #### [facility] [address] [place] [address] Dr. Li Mcgrath gap [Moles/Vol]7.8 mmol/LNormalThe [facility] HospitalComment on above:Performed By: #### ALPHPHN #### [facility] [address] [place] [address] Dr. Li NagelAST [Catalytic activity/Vol]57 U/LCritically scht51-88Gzi [facility] HospitalComment on above:Performed By: #### ALPHPHN #### [facility] [address] [place] [address] Dr. Li NagelBilirubin [Mass/Vol]0.4 mg/dLNormal0.2-1.0The [facility] Comment on above:Performed By: #### ALPHPHN #### [facility] [address] [place] [address] Dr. Li NagelCalcium [Mass/Vol]8.9 mg/dLNormal8.5-10.1[facility] Comment on above:Performed By: #### ALPHPHN #### [facility] [address] [place] [address] Dr. Li NagelChloride [Moles/Vol]104 mmol/TGoprgx22-562Eyy [facility] Comment on above:Performed By: #### ALPHPHN #### [facility] [address] [place] [address] Dr. Li NagelCO2 [Moles/Vol]27.7 mmol/KJotxnl87.0-32.0[facility] Comment on above:Performed By: #### ALPHPHN #### [facility] [address] [place] [address] Dr. Li NagelCreatinine [Mass/Vol]0.78 mg/dLNormal0.55-1.02The [facility] HospitalComment on above:Performed By: #### ALPHPHN #### [facility] [address] [place] [address] Dr. Li McdonaldGFR-AF EGYPTIAN>60Normal>=60The [facility] HospitalComment on above:Performed By: #### ALPHPHN #### [facility] [address] [place] [address] Dr. Li McdonaldGFR-NON AF EGYPTIAN>60Normal>=60The [facility] HospitalComment on above:Performed By: #### ALPHPHN #### [facility] [address] [place] [address] Dr. Li NagelGlobulin (S) [Mass/Vol]3.2 g/dLNormalThVan Wert County HospitalComment on above:Performed By: #### ALPHPHN #### [facility] [address] [place] [address] Dr. Li NagelGlucose [Mass/Vol]104 mg/iKMhvloi96-275Lme [facility] Comment on above:Performed By: #### ALPHPHN #### [facility] [address] [place] [address] Dr. Li NagelPotassium [Moles/Vol]3.5 mmol/LNormal3.5-5.1[facility] Comment on above:Performed By: #### ALPHPHN #### [facility] [address] [place] [address] Dr. Li NagelProtein [Mass/Vol]6.9 g/dLNormal6.4-8.2[facility] Comment on above:Performed By: #### ALPHPHN #### [facility] [address] [place] [address] Dr. Li NagelSodium [Moles/Vol]136 mmol/ZIuflip284-730EcuMagruder Memorial Hospital Comment on above:Performed By: #### ALPHPHN #### [facility] [address] [place] [address] Dr. Li NagelUrea nitrogen [Mass/Vol]10.0 mg/dLNormal7.0-18.0The [facility] HospitalComment on above:Performed By: #### ALPHPHN #### [facility] Laboratory [address] [place] [address] Dr. Li Brand nitrogen/Creatinine [Mass ratio]12.8 mg/mgNormalThe [facility] Memorial HospitalComment on above:Performed By: #### ALPHPHN #### [facility] [address] [place] [address] Dr. Yilan ChangXR LSPINE MIN 4 VIEWSon 24-90-4552XL LSPINE MIN 4 VIEWS EXAMINATION: XR LSPINE [...] Electronically authenticated by: LAURIE CRUZ Date: 2021-09-06 15:05[facility] HospitalNM HEPATOBILIARY SCAN W EFon 13-95-8407OV HEPATOBILIARY SCAN W EFEXAMINATION: NM HEPATOBILIARY SCAN [...] Electronically authenticated by: JACKSON BUTLER Date: 2021-08-27 16:[facility] HospitalComprehensive Metabolic Panelon 62-22-4833Cpndfyk [Mass/Vol]5.0 g/dLNormal3.6-5.1[facility] SpecialistComment on above:Performed By: #### CMP #### [facility] [address], [place] [id number]/Globulin [Mass ratio]2.1 {ratio}Normal1.0-2.5[facility] SpecialistComment on above:Performed By: #### CMP #### [facility] [address], [place] [id number] [Catalytic activity/Vol]110 U/WKdfqux42-312Huftrmzq [facility] SpecialistComment on above:Performed By: #### CMP #### [facility] [address], [place] [id number] [Catalytic activity/Vol]71 U/LHigh6-33[facility] SpecialistComment on above:Result Comment: 03/24/2021 Female reference range changed.Performed By: #### CMP #### [facility] [address], [place] [id number] gap [Moles/Vol]17 mmol/KWcnpqa14-44Cgygchvh [facility] SpecialistComment on above:Result Comment: Effective 04/29/2019 reference range changed.Performed By: #### CMP #### [facility] [address], [place] [id number] [Catalytic activity/Vol]69 U/LHigh9-34[facility] SpecialistComment on above:Performed By: #### CMP #### [facility] [address], [place] [id number]/CREA11 RatioNormal6-22[facility] Legal Research Analyst Comment on above:Performed By: #### CMP #### [facility] [address], [place] [id number] [Mass/Vol]9.8 mg/dLNormal8.6-10.2[facility] SpecialistComment on above:Performed By: #### CMP #### [facility] [address], [place] [id number] [Moles/Vol]99 mmol/XYnbckr09-138Jclqoufp [facility] SpecialistComment on above:Performed By: #### CMP #### [facility] [address], [place] [id number] [Moles/Vol]25 mmol/UJynezf17-59Cggxlttp [facility] SpecialistComment on above:Performed By: #### CMP #### [facility] [address], [place] [id number] [Mass/Vol]0.9 mg/dLNormal0.6-1.4[facility] SpecialistComment on above:Performed By: #### CMP #### [facility] [address], [place] [id number] mL/min/1.97h0Pafxbo>60[facility] SpecialistComment on above:Performed By: #### CMP #### [facility] [address], [place] [id number] mL/min/1.00v1Hyufhz>60[facility] SpecialistComment on above:Performed By: #### CMP #### [facility] [address], [place] [id number] (S) [Mass/Vol]2.4 g/dLNormal1.9-3.7[facility] SpecialistComment on above:Performed By: #### CMP #### [facility] [address], [place] [id number] [Mass/Vol]100 mg/cWXqfw52-96Ibkalwyj [facility] SpecialistComment on above:Result Comment: For FASTING Glucose --- ADA reference ranges: Normal 65-99 mg/dl Prediabetes 100-125 Diabetes >/= 126Performed By: #### CMP #### [facility] [address], [place] [id number] [Moles/Vol]3.8 mmol/LNormal3.5-5.5[facility] SpecialistComment on above:Performed By: #### CMP #### [facility] [address], [place] [id number] [Mass/Vol]7.4 g/dLNormal6.1-8.1[facility] SpecialistComment on above:Performed By: #### CMP #### [facility] [address], [place] [id number] [Moles/Vol]137 mmol/JKenmoi134-832Gqolxnft [facility] SpecialistComment on above:Performed By: #### CMP #### [facility] [address], [place] [id number]<0.3NormalNorthern [facility] SpecialistComment on above:Performed By: #### CMP #### [facility] [address], [place] [id number] nitrogen [Mass/Vol]10 mg/dLNormal-[facility] SpecialistComment on above:Performed By: #### CMP #### [facility] [address], [place] [id number] SINGLE QUAD RT UPPERon 06-60-2866PT SINGLE QUAD RT UPPER EXAMINATION: US SINGLE [...] Electronically authenticated by: JACKSON BUTLER Date: 2021-08-16 08:19White HospitalComplete Blood Count with Auto Diffon 60-79-2038Tqpwgjvou (Bld) [#/Vol]0.03 10*3/uLNormal0.00-0.20[facility]n [facility] SpecialistComment on above:Performed By: #### CMP, CBCAD, LIPD #### [facility] [address], [place] [id number]/100 WBC (Bld)0.4 %NormalNorthern [facility] SpecialistComment on above:Performed By: #### CMP, CBCAD, LIPD #### [facility] [address], [place] [id number] (Bld) [#/Vol]0.11 10*3/uLNormal0.02-0.50[facility] SpecialistComment on above:Performed By: #### CMP, CBCAD, LIPD #### [facility] [address], [place] [id number]/100 WBC (Bld)1.4 %[facility] SpecialistComment on above:Performed By: #### CMP, CBCAD, LIPD #### [facility] [address], [place] [id number] distribution width (RBC) [Ratio]12.6 %Normal 11.0-15.0[facility] SpecialistComment on above:Performed By: #### CMP, CBCAD, LIPD #### [facility] [address], [place] [id number] (Bld) [Volume fraction]44.2 %Tkjrtj84.0-47.0 [facility] SpecialistComment on above:Performed By: #### CMP, CBCAD, LIPD #### [facility] [address], [place] [id number] (Bld) [Mass/Vol]14.8 g/bVChacjk92.6-15.5[facility] SpecialistComment on above:Performed By: #### CMP, CBCAD, LIPD #### [facility] [address], [place] [id number] (Bld) [#/Vol]2.2 10*3/uLNormal0.9-3.9NoC[facility] SpecialistComment on above:Performed By: #### CMP, CBCAD, LIPD #### [facility] [address], [place] [id number]/100 WBC (Bld)28.1 %[facility] SpecialistComment on above:Performed By: #### CMP, CBCAD, LIPD #### [facility] [address], [place] [id number] (RBC) [Entitic mass]31.2 qgRqeess75.0-33.0NoC[facility] SpecialistComment on above:Performed By: #### CMP, CBCAD, LIPD #### [facility] [address], [place] [id number] (RBC) [Mass/Vol]33.5 g/wIZbvyij52.0-36.0[facility] SpecialistComment on above:Performed By: #### CMP, CBCAD, LIPD #### [facility] [address], [place] [id number] (RBC) [Entitic vol]93 cTNqgtbz21-849Clejxnum [facility] SpecialistComment on above:Performed By: #### CMP, CBCAD, LIPD #### [facility] [address], [place] [id number] (Bld) [#/Vol]0.4 10*3/uLNormal0.2-0.9[facility] SpecialistComment on above:Performed By: #### CMP, CBCAD, LIPD #### [facility] [address], [place] [id number]/100 WBC (Bld)4.8 %NormalNortSamaritan Hospital SpecialistComment on above:Performed By: #### CMP, CBCAD, LIPD #### [facility] [address], [place] [id number] (Bld) [#/Vol]5.1 10*3/uLNormal1.5-7.8[facility] SpecialistComment on above:Performed By: #### CMP, CBCAD, LIPD #### [facility] [address], [place] [id number]/100 WBC (Bld)64.3 %NormalNoC[facility] SpecialistComment on above:Performed By: #### CMP, CBCAD, LIPD #### [facility] [address], [place] [id number] mean volume (Bld) [Entitic vol]11.00 fLNormal 7.50-12.50NoC[facility] SpecialistComment on above:Performed By: #### CMP, CBCAD, LIPD #### [facility] [address], [place] [id number] (Bld) [#/Vol]296 10*3/iWEzihnn811-793Chluzeek [facility] SpecialistComment on above:Performed By: #### CMP, CBCAD, LIPD #### [facility] [address], [place] [id number] (Bld) [#/Vol]4.74 10*6/uLNormal3.90-5.20[facility] SpecialistComment on above:Performed By: #### CMP, CBCAD, LIPD #### [facility] [address], [place] [id number]-TF97.4 mWYmbizc67.0-50.0NoC[facility] Specialist Comment on above:Performed By: #### CMP, CBCAD, LIPD #### [facility] [address], [place] [id number] (Bld) [#/Vol]8.0 10*3/uLNormal3.8-11.0[facility] SpecialistComment on above:Performed By: #### CMP, CBCAD, LIPD #### [facility] [address], [place] [id number] Metabolic Panelon 00-15-6162Utyavzw [Mass/Vol] 5.2 g/dLHigh3.6-5.1[facility] SpecialistComment on above:Performed By: #### CMP, CBCAD, LIPD #### [facility] [address], [place] [id number]/Globulin [Mass ratio]2.1 {ratio}Normal1.0-2.5NoC[facility] SpecialistComment on above:Performed By: #### CMP, CBCAD, LIPD #### [facility] [address], [place] [id number] [Catalytic activity/Vol]115 U/HSvbwub54-528Edwgpnbd [facility] SpecialistComment on above:Performed By: #### CMP, CBCAD, LIPD #### [facility] [address], [place] [id number] [Catalytic activity/Vol]101 U/LHigh6-33NoC[facility] SpecialistComment on above:Result Comment: 03/24/2021 Female reference range changed.Performed By: #### CMP, CBCAD, LIPD #### [facility] [address] [place], [place] [id number] gap [Moles/Vol]20 mmol/RVugnfe02-07Lkzrksos [facility] SpecialistComment on above:Result Comment: Effective 04/29/2019 reference range changed.Performed By: #### CMP, CBCAD, LIPD #### [facility] [address] [facility] [id number] [Catalytic activity/Vol]96 U/LHigh9-34NoC[facility] SpecialistComment on above:Performed By: #### CMP, CBCAD, LIPD #### [facility] [address] [facility] [place] [id number]/CREA9 RatioNormal6-22NoC[facility] Specialist Comment on above:Performed By: #### CMP, CBCAD, LIPD #### [facility] [address], [place] [id number] [Mass/Vol]9.9 mg/dLNormal8.6-10.2[facility] SpecialistComment on above:Performed By: #### CMP, CBCAD, LIPD #### [facility] [address] [place], [place] [id number] [Moles/Vol]106 mmol/JZfhlqy13-640Izqskpzi [facility] SpecialistComment on above:Performed By: #### CMP, CBCAD, LIPD #### [facility] [address] [place], [place] [id number] [Moles/Vol]21 mmol/PHdiiqs34-20Kxjaiqmd [facility] SpecialistComment on above:Performed By: #### CMP, CBCAD, LIPD #### [facility] [address], [place] [id number] [Mass/Vol]0.9 mg/dLNormal0.6-1.4[facility] SpecialistComment on above:Performed By: #### CMP, CBCAD, LIPD #### [facility] [address], [place] [id number] mL/min/1.39s6Vfcsjn>60[facility] SpecialistComment on above:Performed By: #### CMP, CBCAD, LIPD #### [facility] [address], [place] [id number] mL/min/1.33e1Xrukwy>60[facility] SpecialistComment on above:Performed By: #### CMP, CBCAD, LIPD #### [facility] [address], [place] [id number] (S) [Mass/Vol]2.5 g/dLNormal1.9-3.7[facility] SpecialistComment on above:Performed By: #### CMP, CBCAD, LIPD #### [facility] [address], [place] [id number] [Mass/Vol]127 mg/xTAftn97-62Ajxgtbrz [facility] SpecialistComment on above:Result Comment: For FASTING Glucose --- ADA reference ranges: Normal 65-99 mg/dl Prediabetes 100-125 Diabetes >/= 126Performed By: #### CMP, CBCAD, LIPD #### [facility] [address], [place] [id number] [Moles/Vol]4.2 mmol/LNormal3.5-5.5[facility] SpecialistComment on above:Performed By: #### CMP, CBCAD, LIPD #### [facility] [address], [place] [id number] [Mass/Vol]7.7 g/dLNormal6.1-8.1[facility] SpecialistComment on above:Performed By: #### CMP, CBCAD, LIPD #### [facility] [address], [place] [id number] [Moles/Vol]143 mmol/FQykmvz476-433Lbnrsdfj [facility] SpecialistComment on above:Performed By: #### CMP, CBCAD, LIPD #### [facility] [address], [place] [id number]<0.3NormalNoC[facility] SpecialistComment on above:Performed By: #### CMP, CBCAD, LIPD #### [facility] [address], [place] [id number] nitrogen [Mass/Vol]8 mg/dLNormal7-25NoC[facility] SpecialistComment on above:Performed By: #### CMP, CBCAD, LIPD #### [facility] [address], [place] [id number] A1Con 29-12-0562GAK75.67NormalNoC[facility] SpecialistComment on above:Performed By: #### A1C #### [facility] [address], [place] [id number] (Bld) [Mass fraction]5.1 %Normal4.0-6.0NoC[facility] SpecialistComment on above:Performed By: #### A1C #### [facility] [address], [place] [id number] Panelon 10-91-1974Bazgfqvurjv [Mass/Vol]190 mg/dLNormal 125-200NoC[facility] SpecialistComment on above:Result Comment: Low risk < 200mg/dL Borderline risk 201-239 mg/dl High risk > or equal to 240Performed By: #### CMP, CBCAD, LIPD #### [facility] [address], [place] [id number] in HDL [Mass/Vol]64 mg/dLNormal>40NoC[facility] SpecialistComment on above:Result Comment: High Cardiovascular Risk HDL <40 mg/dL Low Cardiovascular Risk HDL > or equal to 60 mg/dlPerformed By: #### CMP, CBCAD, LIPD #### [facility] [address], [place] [id number] in LDL [Mass/Vol]107 mg/dLNoGal[facility] SpecialistComment on above:Result Comment: LDL ATP III CLASSIFICATION LDL less than 100 mg/dl Optimal LDL 100-129 mg/dl Near or above optimal LDL 130-159 Borderline high LDL 160-189 High LDL greater than 189 mg/dl Very HighPerformed By: #### CMP, CBCAD, LIPD #### [facility] [address], [place] [id number] in VLDL [Mass/Vol]19 mg/dLNormPremier Health [facility] SpecialistComment on above:Performed By: #### CMP, CBCAD, LIPD #### [facility] [address], [place] [id number].total/Cholesterol in HDL [Mass ratio]3 {ratio} NormalNoC[facility] SpecialistComment on above:Performed By: #### CMP, CBCAD, LIPD #### [facility] [address], [place] [id number] [Mass/Vol]95 mg/hYMuwggd22-932Lnfexeod [place] [facility] SpecialistComment on above:Result Comment: TRIG ATPIII CLASSIFICATIONS TRIG less than 150 mg/dl Normal TRIG 150-199 mg/dl Borderline High TRIG 200-500 mg/dl High TRIG greather than 500 mg/dl Very HighPerformed By: #### CMP, CBCAD, LIPD #### [facility] [address], [place] [id number] - CULTURE,URINE,ROUTINEon 92-43-2926KRXDCMT, URINE, ROUTINE SEE NOTENormalNoC[facility] SpecialistComment on above:Order Comment: [facility] performed at: [facility] [employer] [facility], [address] [place] [address], [address] [place] [address], [place], [address], Charge Coordinator: Tim Dotson MD [facility] Collection Date/Time: [facility] Results Received Date/Time: [facility] Reported Date/Time: [id number] Comment: CULTURE, URINE, ROUTINE Micro Number: [id number] Test Status: Final Specimen Source: Not given Specimen Quality: Adequate Result: Mixed genital marie isolated. These superficial bacteria are not indicative of a urinary tract infection. No further organism identification is warranted on this specimen. If clinically indicated, recollect clean-catch, mid-stream urine and transfer immediately to Urine Culture Transport Tube.Performed By: #### [id number] #### [facility] Default [address] [place], [place] [address]QXK LUMBAR SPINE WO CONTRASTon 10-98-4432YZR LUMBAR SPINE WO CONTRASTEXAMINATION: MRI LUMBAR SPINE [...] Signed by: Naren Lagos MD 11/06/18 [facility] Vital Signs Date TimeVital SignValuePerforming ZufofazeqUnqgtctm83-14-9027 16:46-0500Body umzzth834.5 cmMarc Dolce DPM FACFAS Work Phone: [facility] HospitalYmbmgaplxv42-97-0657 16:46-0500Body mass index (BMI) [Ratio]38.41 kg/m2Marc Dolce DPM FACFAS Work Phone: [facility] HospitalOfotovrjsp05-23-2619 16:46-0500Body bbsanp88.25 kgMarc Dolce DPM FACFAS Work Phone: [facility] HospitalGapzccwurp12-61-1448 16:46-0500Diastolic blood emgrrpao84 mm[Hg]Milton Adryanbran DPM FACFAS Work Phone: [facility] HospitalZcwnybzupq66-32-1926 16:46-0500Heart rate81 /min Milton Adryanbran DPM FACFAS Work Phone: [facility] HospitalBauahgprhn24-85-8244 16:46-0500Systolic blood grimhlxt304 mm[Hg]Milton Adryanbran DPM FACFAS Work Phone: [facility] HospitalApsettlyli47-57-8416 15:20-0500Body .5 cmAmy Yessy PA Work Phone: [facility] HospitalSkmnbvqubw88-35-1979 15:20-0500Body mass index (BMI) [Ratio]38.41 kg/m2Amy Yessy PA Work Phone: [facility] HospitalKlpvhmspub53-70-1568 15:20-0500Body .25 kgAmy Alpena PA Work Phone: [facility] HospitalBbpuacwqkd15-18-1232 15:20-0500Diastolic blood padvcjvs32 mm[Hg]Ayleen Alpena PA Work Phone: [facility] HospitalQiecigywcr34-98-3618 15:20-0500Systolic blood tukhmjbg429 mm[Hg]Ayleen Alpena PA Work Phone: [phone]-[facility] HospitalSocvlqvpke03-69-2837 16:59-0400Body btqacj025.5 cmMarc Dolce DPM FACFAS Work Phone: [facility] HospitalAqkjfhyfoi76-13-6988 16:59-0400Body mass index (BMI) [Ratio]38.78 kg/m2Marc Dolce DPM FACFAS Work Phone: [facility] HospitalBdfmphwwlu79-06-9722 16:59-0400Body .16 kgMarc Dolce DPM FACFAS Work Phone: [phone] [place], [place] 2983410-22-2025 16:59-0400Diastolic blood itesfbvx46 mm[Hg]Milton Fraire DPM FACFAS Work Phone: [phone] [place], [place] 2983410-22-2025 16:59-0400Heart rate84 /min Milton Fraire DPM FACFAS Work Phone: [phone] [place], [place] 2983410-22-2025 16:59-0400Systolic blood cscueowe197 mm[Hg]Milton Fraire DPM FACFAS Work Phone: [phone])[address] [place], [place] 2983409-24-2025 16:24-0400Body urjmvs522.5 cmMaralcon Fraire DPM FACFAS Work Phone: [phone])[address] [place], [place] 2983409-24-2025 16:24-0400Body mass index (BMI) [Ratio]38.78 kg/m2Marc Dolce DPM FACFAS Work Phone: [phone])[address] [place], [place] 2983409-24-2025 16:24-0400Body xrnmuv46.16 kgMaralcon Corneliusce DPM FACFAS Work Phone: [phone])[address] [place], [place] 2983409-24-2025 16:24-0400Diastolic blood dszvyunf71 mm[Hg]Milton Fraire DPM FACFAS Work Phone: [phone])[address] [place], [place] 2983409-24-2025 16:24-0400Heart rate88 /min Milton Fraire DPM FACFAS Work Phone: [phone])[address] [place], [place] 2983409-24-2025 16:24-0400Systolic blood mm[Hg]Milton Fraire DPM FACFAS Work Phone: 1(460)[address] [place], [place] 2983409-15-2025 11:01-0400Body juwnwc780.5 Marysol Hagen MD Work Phone: [facility] HospitalLndiwtofdx68-79-0879 11:01-0400Body mass index (BMI) [Ratio]38.78 kg/h1HeiagGiovani Hagen MD Work Phone: [place] [address]Hkgivkwevw44-37-7167 11:01-0400Body pkhuur06.16 kgGiovani Hagen MD Work Phone: [phone] [place], [place] [address]Dthpwyinbq66-41-0592 11:01-0400Diastolic blood lbdiuvvv97 mm[Hg]Giovani Hagen MD Work Phone: [facility] HospitalUcttwqzwao50-05-6130 11:01-0400Heart rate90 /min Giovani Hagen MD Work Phone: [facility] HospitalVxixsbejwj77-43-1164 11:01-0400Respiratory rate16 /minGiovani Hagen MD Work Phone: [place] [address]Odgaylydch96-13-5320 11:01-5156EdC0% (BldA) [Mass fraction]97 %Giovani Hagen MD Work Phone: [facility] HospitalCfbdneixcq48-48-4389 11:01-0400Systolic blood mm[Hg]Giovani Hagen MD Work Phone: [facility] HospitalKaaregjaju07-16-9385 13:46-0400Body rlcisn060.5 cmMarc Dolce DPM FACFAS Work Phone: [phone] [place], [place] 2983409-08-2025 13:46-0400Body mass index (BMI) [Ratio]37.68 kg/m2Marc Dolce DPM FACFAS Work Phone: [phone] HospitalVnwybbzpmi25-64-8344 13:46-0400Body dzgcmi36.44 kgMarc Dolce DPM FACFAS Work Phone: [phone] HospitalSgpkedboij63-27-9552 13:46-0400Diastolic blood mm[Hg]Milton Corneliusce DPM FACFAS Work Phone: [phone])[address] [place], [place] 2983409-08-2025 13:46-0400Heart rate91 /min Milton Dolce DPM FACFAS Work Phone: [phone] HospitalXpffcrwuip18-17-9715 13:46-0400Systolic blood sjjobjhz597 mm[Hg]Milton Dolce DPM FACFAS Work Phone: [phone] HospitalBuibwsxndr91-99-1466 09:14-0400Body mass index (BMI) [Ratio]36.28 kg/m2Emma Romero APRN.CNP Work Phone: [place] Iklczv41-86-8684 09:14-0400Body jejipv85.9 kgErin Reaper FLIGHT ATTENDANT IN[employer] SERVICES.GAME PROGRAMER Work Phone: [phone] Fbekxb82-90-6136 09:14-0400Diastolic blood nfwraomt29 mm[Hg]Emma Reaper FLIGHT ATTENDANT [employer].GAME PROGRAMER Work Phone: [facility] Rjlovo77-22-5268 09:14-0400Systolic blood jvfhoisb050 mm[Hg]Emma Reaper FLIGHT ATTENDANT INFLIGHT SERVICES.GAME PROGRAMER Work Phone: [facility] Srqpah04-73-1798 13:17-0400Body hzxmud754.5 cmJatin Parisi MD Work Phone: [facility] HospitalGjnhybvlrx30-64-1080 13:17-0400Body mass index (BMI) [Ratio]37.68 kg/a8AtuliddJatin Parisi MD Work Phone: [facility] HospitalUfsdmtgunj35-08-5930 13:17-0400Body tlpbum42.44 kgJatin Praisi MD Work Phone: [facility] HospitalZtghyzxqop91-12-3220 13:17-0400Diastolic blood mm[Hg]Jatin Parisi MD Work Phone: [facility] HospitalFnllltwjwz00-51-3940 13:17-0400Systolic blood cletvaoe710 mm[Hg]Jatin Parisi MD Work Phone: [facility] HospitalMpfuzptpqy61-27-2316 09:45-0400Body jovbvo671.5 Marysol Hagen MD Work Phone: [facility] HospitalZwnxzdwcdn66-25-7549 09:45-0400Body mass index (BMI) [Ratio]36.76 kg/e7KxrlfGiovani Hagen MD Work Phone: NONorthwest Medical CenterAjiffqvzki01-47-9216 09:45-0400Body jwlygg95.17 kgGiovani Hagen MD Work Phone: noNorthwest Medical CenterJmcsvkdygm26-89-3355 09:45-0400Diastolic blood akzlsjhb12 mm[Hg]Giovani Hagen MD Work Phone: [place] [address]Wrdawudmjv25-25-7108 09:45-0400Heart rate93 /min Giovani Hagen MD Work Phone: [place] [address]Epzesmjnnd20-75-2281 09:45-1202MmJ3% (BldA) [Mass fraction]98 %Giovani Hagen MD Work Phone: [facility] HospitalKuhqofzcqz83-70-0102 09:45-0400Systolic blood lwrxgcin799 mm[Hg]Giovani Hagen MD Work Phone: [facility] HospitalZhdyfyaqxr70-59-5489 10:18-0400Body .5 cmMarc Dolce DPM FACFAS Work Phone: [phone] [place], [place] [address] HospitalPyogffxnah98-00-7340 10:18-0400Body mass index (BMI) [Ratio]36.76 kg/m2Marc Dolce DPM FACFAS Work Phone: [facility] HospitalDhrsbprjhd16-39-3946 10:18-0400Body sdzzab29.17 kgMarc Dolce DPM FACFAS Work Phone: [phone])[facility]-4433[facility] HospitalZcpckrudze45-81-1098 10:18-0400Diastolic blood labulubd12 mm[Hg]Milton Fraire DPM FACFAS Work Phone: [phone])[facility]2546[facility] HospitalVvyunldtvk93-71-1565 10:18-0400Heart rate88 /min Milton Corneliusce DPM FACFAS Work Phone: [facility] HospitalQzexammicc02-30-4880 10:18-0400Systolic blood qrlirvss427 mm[Hg]Milton Fraire DPM FACFAS Work Phone: [phone] [address]Ekvpsvqnsq85-29-5805 10:38-0400Body jeisaq987.5 cmSandy Hammond PA Work Phone: [place] [address]Zxqkzjsvqz20-86-4404 10:38-0400Body mass index (BMI) [Ratio]36.62 kg/w9JtvroSandy Hammond PA Work Phone: [place] [address]Hxkskcesgx34-74-3392 10:38-0400Body .81 kgSandy Hammond PA Work Phone: [phone] [place], [place] [address]Onhkdpkukk91-33-6940 10:38-0400Diastolic blood xzdgdtte89 mm[Hg]Sandy Hemmer PA Work Phone: [facility] HospitalZtsljsyvzz06-67-0545 10:38-0400Heart rate89 /min Sandy Hemmer PA Work Phone: [facility] HospitalWjuanzxuiv53-30-2051 10:38-0400Respiratory rate16 /minSandy Hemmer PA Work Phone: [facility] HospitalMhdqpmvvxg49-65-3464 10:38-6859PoJ4% (BldA) [Mass fraction]98 %Sandy Hemmer PA Work Phone: [facility] HospitalCzsmnenlef79-84-9436 10:38-0400Systolic blood idgcrhdx991 mm[Hg]Sandy Hemmer PA Work Phone: [facility] HospitalAmbnnsxocg23-81-9023 12:31-0400Body .5 cmJacqueline Graziani MANAGER COMMUNICATION Work Phone: [facility] HospitalDhgywbywlt61-76-4343 12:31-0400Body mass index (BMI) [Ratio]35.3 kg/h9Iyfrppflsp Graziani MANAGER COMMUNICATION Work Phone: [facility] HospitalLmwmfhvaeu86-98-2538 12:31-0400Body qwaqgy91.54 kgJacqueline Graziani MANAGER COMMUNICATION Work Phone: [facility] HospitalJsonwoujbv81-84-5072 13:00-0400Body mass index (BMI) [Ratio]33.83 kg/t6EybqmfyaxMario Harper APRN.GAME PROGRAMER Work Phone: [facility]06-18-2025 13:00-0400Body yjfxfj71.64 kgMario Harper APRN.GAME PROGRAMER Work Phone: [facility]06-18-2025 13:00-0400Diastolic blood owwesmkt27 mm[Hg]Mario Harper APRN.GAME PROGRAMER Work Phone: [facility]06-18-2025 13:00-0400Heart lqkg753 /minMario Harper APRN.GAME PROGRAMER Work Phone: [facility]06-18-2025 13:00-1506RcM4% (BldA) [Mass fraction]99 %Mario Harper FLIGHT ATTENDANT INFLIGHT SERVICES.GAME PROGRAMER Work Phone: [facility]06-18-2025 13:00-0400Systolic blood mm[Hg]Mario Harper FLIGHT ATTENDANT INFLIGHT SERVICES.GAME PROGRAMER Work Phone: [facility]06-17-2025 11:42-0400Body .5 Jennifer Lyn MANAGER COMMUNICATION Work Phone: [facility] HospitalRfbhdiigkk23-48-1329 11:42-0400Body mass index (BMI) [Ratio]34.75 kg/t6CzhmafDeena Lyn MANAGER COMMUNICATION Work Phone: [facility] HospitalSdwwcpleyv55-61-4607 11:42-0400Body .18 kgDeena Lyn MANAGER COMMUNICATION Work Phone: [facility] HospitalAayhktbsdw66-79-1633 11:42-0400Diastolic blood dlbzkoff81 mm[Hg]Deena Lyn MANAGER COMMUNICATION Work Phone: [facility] HospitalIhablxnocx54-98-1652 11:42-0400Heart snxb527 /min Deena Lyn MANAGER COMMUNICATION Work Phone: [facility] HospitalLqzqtmbwlj33-08-4188 11:42-0400Respiratory rate16 /minScole Lyn MANAGER COMMUNICATION Work Phone: [facility] HospitalRripcqwxar12-01-4426 11:42-6206IvX6% (BldA) [Mass fraction]99 %Deena Lyn MANAGER COMMUNICATION Work Phone: [facility] HospitalNdihxmfiyr71-85-2363 11:42-0400Systolic blood nylkdygu472 mm[Hg]Deena Lyn MANAGER COMMUNICATION Work Phone: [facility] CenterRzmzfgyejr34-82-7696 10:25-0400Body azlxqn280.5 Jennifer Lyn MANAGER COMMUNICATION Work Phone: [facility] CenterNhsibomyhz34-72-8034 10:25-0400Body mass index (BMI) [Ratio]35.74 kg/s7EpkfjzDeena Lyn MANAGER COMMUNICATION Work Phone: [facility] HospitalRnlxmvpnml46-65-7382 10:25-0400Body .63 kgKimmaribel Lyn MANAGER COMMUNICATION Work Phone: [facility] HospitalXncbrybigr15-35-6950 10:25-0400Diastolic blood udefrgsm09 mm[Hg]Deena Devon MANAGER COMMUNICATION Work Phone: [facility] HospitalPwarwvahtc52-33-5566 10:25-0400Heart rate94 /min Deena Dialvely MANAGER COMMUNICATION Work Phone: 1([phone] [place], [place] [address]Wcypshdqgw43-26-9581 10:25-0400Respiratory rate17 /minScole Devon MANAGER COMMUNICATION Work Phone: [facility] HospitalXrdexdxcqs27-85-1360 10:25-4346JsI0% (BldA) [Mass fraction]97 %Deena Lyn MANAGER COMMUNICATION Work Phone: 1(036)[facility]-1867[facility] HospitalRxrxxbychj94-93-3263 10:25-0400Systolic blood cigxubzh232 mm[Hg]Deena [place] MANAGER COMMUNICATION Work Phone: 1(487)[facility]-[address] [place], [place] [address]Tecwpvainp77-11-5083 11:11-0400Body .5 cmKaren Hemmer PA Work Phone: 1(458)[facility] [place], [place] [address]Bdpzfkiqmt46-51-3612 11:11-0400Body mass index (BMI) [Ratio]35.26 kg/a1Agwfo Hemmer PA Work Phone: 1(423)[facility]-[address] [place], [place] [address]Zduvwcrclk11-20-4087 11:11-0400Body .45 kgKaren Hemmer PA Work Phone: 1(355)[facility]-[address] [place], [place] [address]Vmgjanpyqv55-58-7805 11:11-0400Diastolic blood mm[Hg]Sandy Hemmer PA Work Phone: 1(671)[facility]-[address] [place], [place] [address]Tsitwrtkcn89-76-1384 11:11-0400Heart rate75 /min Sandy Hemmer PA Work Phone: 1(867)[facility]-[address] [place], [place] [address]Dijxrbxujr19-73-0563 11:11-0400Respiratory rate16 /minEnriqueen Hemmer PA Work Phone: 1(234)350-[address] [place], [place] [address]Uksxdmtxyk26-77-4718 11:11-9857XjF1% (BldA) [Mass fraction]99 %Sandy JUSTICE Work Phone: [facility] HospitalGjicmttvcy11-66-8680 11:11-0400Systolic blood mgrmlfpi915 mm[Hg]Sandy JUSTICE Work Phone: [facility] HospitalStjwvwgvyf37-35-1088 13:37-0400Body dhrovm806.5 cmRolamide Hagen MD Work Phone: [facility] HospitalTarfxjuefw74-77-1532 13:37-0400Body mass index (BMI) [Ratio]34.93 kg/x4LlqbdGiovani Hagen MD Work Phone: [facility] HospitalJinbdkucat85-89-6414 13:37-0400Body xkipgc80.64 kgGiovani Hagen MD Work Phone: [facility] HospitalZykdlpvjcz16-05-0233 13:37-0400Diastolic blood buhrbwvz48 mm[Hg]Giovani Hagen MD Work Phone: [facility] HospitalHxbcmebjsk05-30-3497 13:37-0400Heart rate88 /min Giovani Hagen MD Work Phone: [facility] HospitalKogdvznofr23-27-2629 13:37-3294TyV5% (BldA) [Mass fraction]98 %Giovani Hagen MD Work Phone: [facility] HospitalDanjnkqopj81-82-1724 13:37-0400Systolic blood ujjpztfz517 mm[Hg]Giovani Hagen MD Work Phone: [facility] HospitalZjvoflkhqa10-38-0054 16:21-0400Body fvgoxf475.5 cmMarc Dolce DPM FACFAS Work Phone: [facility] HospitalSkwskxstnw11-47-0572 16:21-0400Body mass index (BMI) [Ratio]33.65 kg/m2Marc Dolce DPM FACFAS Work Phone: [facility] HospitalUrsegupaqt85-45-1334 16:21-0400Body otgswo88.46 kgMarc Dolce DPM FACFAS Work Phone: [facility] HospitalNwdnzxsbvm39-44-2337 16:21-0400Diastolic blood jzhsnyco91 mm[Hg]Milton Corneliusce DPM FACFAS Work Phone: [facility] HospitalXpmftjzbtx32-55-6982 16:21-0400Heart rate87 /min Milton Eloina DPM FACFAS Work Phone: [facility] HospitalFumvysomgw33-98-9337 16:21-0400Systolic blood eyzyfvus518 mm[Hg]Milton Eloina DPM FACFAS Work Phone: [facility] HospitalXukkjtbtzx65-71-4780 15:13-0400Body .5 Marysol Hagen MD Work Phone: [facility] HospitalJealleqkcd95-46-6117 15:13-0400Body mass index (BMI) [Ratio]33.65 kg/i7GdclrGiovani Hagen MD Work Phone: [facility] HospitalTlzefeodme84-64-2781 15:13-0400Body .46 kgGiovani Hagen MD Work Phone: [facility] HospitalDgzmjhoqdd17-59-2985 15:13-0400Diastolic blood mm[Hg]Giovani Hagen MD Work Phone: [facility] HospitalJbsilqefwd02-75-3094 15:13-0400Heart kflu829 /min Giovani Hagen MD Work Phone: [facility] HospitalCooclahkzh00-66-9316 15:13-6677IdR7% (BldA) [Mass fraction]97 %Giovani Hagen MD Work Phone: [facility] HospitalSzckkyetmp74-32-0557 15:13-0400Systolic blood dtrnjree776 mm[Hg]Giovani Hagen MD Work Phone: [facility] HospitalApacfrtxkq88-83-6497 16:14-0400Body qevpgk067.5 cmMarc Dolce DPM FACFAS Work Phone: [facility] HospitalCaranybosk77-60-6923 16:14-0400Body mass index (BMI) [Ratio]34.2 kg/m2Marc Dolce DPM FACFAS Work Phone: [facility] HospitalSaerzssbpf06-28-6612 16:14-0400Body wijjtx78.82 kgMarc Dolce DPM FACFAS Work Phone: [facility] HospitalPuwviufeml44-77-9626 16:14-0400Diastolic blood cyhhxdxi53 mm[Hg]Milton Fraire DPM FACFAS Work Phone: [facility] HospitalMsmcoganxg80-30-4686 16:14-0400Heart rate80 /min Milton Fraire DPM FACFAS Work Phone: [phone] HospitalTndpxoenfy12-09-1829 16:14-0400Systolic blood mm[Hg]Milton Fraire DPM FACFAS Work Phone: 1(934)[facility]8363[facility] HospitalJkbwltrhnd98-98-8112 08:48-0400Body .11 kgGiovani Hagen MD Work Phone: 1(528)[address] [place], [place] 1310404-28-2025 07:30-0400 Body .1 [degF]Giovani Hagen MD Work Phone: 1(425)[address] [place], [place] 1310404-28-2025 07:30-0400 Diastolic blood jzyyurrx17 mm[Hg]Giovani Hagen MD Work Phone: 1(982)[address]04-28-2025 07:30-0400 Heart rate85 /minGiovani Hagen MD Work Phone: 1(609)[address] [place], [place] 1310404-28-2025 07:30-0400 Respiratory rate18 /minGiovani Hagen MD Work Phone: 1(187)[address] [place], [place] 1310404-28-2025 07:30-0400 SaO2% (BldA) [Mass fraction]97 %Giovani Hagen MD Work Phone: 1(675)[address]04-28-2025 07:30-0400 Systolic blood rhlybsnf896 mm[Hg]Giovani Hagen MD Work Phone: 1(994)[address] [place], [place] 1310404-25-2025 17:29-0400 Body brneju922.48 cmRolamide Hagen MD Work Phone: 1(632)[address]04-23-2025 16:39-0400 Body .5 cmMarc Dolce DPM FACFAS Work Phone: [facility] HospitalFgwskdntqo79-78-0423 16:39-0400Body mass index (BMI) [Ratio]34.2 kg/m2Milton Fraire DPM FACFAS Work Phone: 1)[address] [place], [place] [address] [address]Yixthqwyod49-45-6926 16:39-0400Body wezwoh68.82 kgMilton Adryanbran DPM FACFAS Work Phone: 1(816)[address] [place], [place] 2983404-23-2025 16:39-0400Diastolic blood yarnatwu14 mm[Hg]Milton Fraire DPM FACFAS Work Phone: 1(671)[address] [place] [address]-23-2025 16:39-0400Heart rate82 /min Milton Fraire DPM FACFAS Work Phone: 1(256)[address] [place], [place] 2983404-23-2025 16:39-0400Systolic blood mm[Hg]Milton Adryanbran DPM FACFAS Work Phone: 1(242)[address] [place], [place] 2983404-22-2025 14:57-0400Body ejvanw665 cm Solo Carty MD Work Phone: [facility] Oavhmq40-29-8738 14:57-0400Body mass index (BMI) [Ratio]31.89 kg/g3AplwzgkkSolo Carty MD Work Phone: [phone] Obwlzc07-73-4912 14:57-0400Body .65 kgSolo Carty MD Work Phone: [phone] Miazvw86-95-9491 14:57-0400Diastolic blood wkjutaku07 mm[Hg]Solo Carty MD Work Phone: [facility] Zrkdjh76-54-0007 14:57-0400Heart rate92 /min Solo Carty MD Work Phone: [facility] Fswbwg96-87-5716 14:57-0400Systolic blood gqkrnlto294 mm[Hg]Solo Carty MD Work Phone: [facility] Dajqxb38-56-1518 14:31-0400Body yzuxpr629.5 Marysol Hagen MD Work Phone: [facility] CenterItylfwfuxt15-39-2659 14:31-0400Body mass index (BMI) [Ratio]34.2 kg/f4CgvjqGiovani Hagen MD Work Phone: [facility] HospitalHgsbmyskbw22-07-1153 14:31-0400Body lawxdp94.82 kgGiovani Hagen MD Work Phone: [facility] CenterObpgbtzroe90-94-2392 14:31-0400Diastolic blood rpzmuhwz62 mm[Hg]Giovani Hagen MD Work Phone: [facility] HospitalYabhbzzkxq45-27-4614 14:31-0400Heart rate85 /min Giovani Hagen MD Work Phone: [facility] HospitalThdbomkgpb84-02-8075 14:31-6056PwX7% (BldA) [Mass fraction]100 %Giovani Hagen MD Work Phone: [facility] HospitalEoscydwwdz01-34-9734 14:31-0400Systolic blood fsmdzzbi061 mm[Hg]Giovani Hagen MD Work Phone: [facility] HospitalMqncbqnvxg50-64-7685 16:04-0400Body dxulxv169.5 cmMarc Dolce DPM FACFAS Work Phone: [facility] HospitalJvrwlqfffy29-23-3214 16:04-0400Body mass index (BMI) [Ratio]34.75 kg/m2Marc Dolce DPM FACFAS Work Phone: [facility] HospitalLuroxfhnnp56-71-4696 16:04-0400Body nqatnm39.18 kgMarc Dolce DPM FACFAS Work Phone: [facility] HospitalGihctxgniy25-63-0904 16:04-0400Diastolic blood lupmpasz87 mm[Hg]Milton Dolce DPM FACFAS Work Phone: [facility] HospitalPuoutgiqre21-70-5962 16:04-0400Heart fddv672 /min Milton Dolce DPM FACFAS Work Phone: [facility] HospitalAceqblctkj36-82-1693 16:04-0400Systolic blood tuvcmwgo809 mm[Hg]Milton Dolce DPM FACFAS Work Phone: [facility] CenterLuognkrffe95-96-6320 09:45-0400Body duqjgb541.8 cmJavy Boudreaux MD Work Phone: [facility]03-19-2025 09:45-0400Body mass index (BMI) [Ratio]34.2 kg/m2Javy Boudreaux MD Work Phone: [facility]03-19-2025 09:45-0400Body .18 kgJavy Boudreaux MD Work Phone: [phone] [address]-19-2025 09:45-0400Diastolic blood rmqgexpm86 mm[Hg]Javy Boudreaux MD Work Phone: [facility]03-19-2025 09:45-0400Heart ulkf820 /minJavy Boudreaux MD Work Phone: [facility]03-19-2025 09:45-0400Systolic blood mm[Hg]Javy Boudreaux MD Work Phone: [facility]03-13-2025 15:30-0400Body nseuis535.5 Marysol Hagen MD Work Phone: [facility] CenterXvxegfgmru79-10-5407 15:30-0400Body mass index (BMI) [Ratio]34.75 kg/y6LpnzsGiovani Hagen MD Work Phone: [facility] CenterOjdbzoxriq35-04-5460 15:30-0400Body nkeubt72.18 kgGiovani Hagen MD Work Phone: [place] [address]Kvhidyryna91-94-2875 15:30-0400Diastolic blood owzttuah09 mm[Hg]Giovani Hagen MD Work Phone: [place] [address]Bgigmoshjp09-27-4980 15:30-0400Heart tbaw021 /min Giovani Hagen MD Work Phone: [place] [address]Nzzlwegnid86-97-7338 15:30-9004HiQ7% (BldA) [Mass fraction]98 %Giovani Hagen MD Work Phone: [facility] HospitalJnmpkcscua31-38-7009 15:30-0400Systolic blood jjvyjqjd675 mm[Hg]Giovani Hagen MD Work Phone: [facility] HospitalKrngjqteua27-01-0800 14:55-0400Body reeodm921.5 cmMarc Dolce DPM FACFAS Work Phone: [facility] HospitalIivzljnbgz08-77-5863 14:55-0400Body mass index (BMI) [Ratio]34.93 kg/m2Marc Dolce DPM FACFAS Work Phone: 1(638)[address] [place], [place] [address]83403-12-2025 14:55-0400Body ynpahn44.64 kgMarc Dolce DPM FACFAS Work Phone: 1(378)[address] [place], [place] [address]83403-12-2025 14:55-0400Diastolic blood mm[Hg]Milton Dolce DPM FACFAS Work Phone: 1(385)[address] [place], [place] [address]83403-12-2025 14:55-0400Heart rate88 /min Milton Dolce DPM FACFAS Work Phone: 1(073)[address] [place], [place] [address]83403-12-2025 14:55-0400Systolic blood xczuibmq845 mm[Hg]Milton Dolce DPM FACFAS Work Phone: 1(827)[facility] HospitalFzfxooqxrs30-60-9423 15:00-0500Body .5 cmMarc Dolce DPM FACFAS Work Phone: 1(967)[facility]0584[facility] HospitalXoofkpcwdr17-88-1628 15:00-0500Body mass index (BMI) [Ratio]34.93 kg/m2Marc Dolce DPM FACFAS Work Phone: 1(853)[address] [place], [place] 2983403-05-2025 15:00-0500Body ehzcrf12.64 kgMarc Dolce DPM FACFAS Work Phone: 1(251)[address] [place] [address]-05-2025 15:00-0500Diastolic blood mvigecrp90 mm[Hg]Milton Dolce DPM FACFAS Work Phone: 1(433)[address] [place], [place] [address]83403-05-2025 15:00-0500Heart rate88 /min Milton Dolce DPM FACFAS Work Phone: [facility] HospitalFupilxdjhh51-05-5486 15:00-0500Systolic blood euesyzss094 mm[Hg]Milton Fraire DPM FACFAS Work Phone: [facility] HospitalScsbmiodgp88-95-8478 14:38-0500Body mass index (BMI) [Ratio]34.9 kg/h3Ugwhx Matty DO Work Phone: [facility] HospitalWyuahvlqzo90-76-2129 14:38-0500Body udyhqb83.55 kgCorey Matty DO Work Phone: [facility] HospitalVpnmvondrn93-30-8074 14:38-0500Diastolic blood walagbfc15 mm[Hg]Darwin Matty DO Work Phone: [facility] HospitalQhqufmgvmg03-61-3696 14:38-0500Systolic blood peqmqbun486 mm[Hg]Darwin Matty DO Work Phone: [facility] HospitalNkiqmrmzgn17-96-3418 14:37-0500Body bpiyxf888.5 cmPrateek Pitts DPM Work Phone: [facility] HospitalCwemodutme99-97-9762 14:37-0500Body mass index (BMI) [Ratio]35.85 kg/e2Awyyilrd Brown DPM Work Phone: [facility] HospitalDetkxdissi30-30-1144 14:37-0500Body jarvod40.91 kgNicjeffry Brown DPM Work Phone: [facility] HospitalDsaefvotpy71-59-9350 14:37-0500Respiratory rate18 /minPrateek Pitts DPM Work Phone: [facility] HospitalQlrldmzale73-66-3178 15:42-0500Body .5 Marysol Hagen MD Work Phone: [facility] HospitalGxvrtmtfmu38-20-9100 15:42-0500Body mass index (BMI) [Ratio]35.85 kg/k0OzqpgGiovani Hagen MD Work Phone: [facility] HospitalCqvthwxtgs34-29-1585 15:42-0500Body .91 kgGiovani Hagen MD Work Phone: [facility] HospitalMsqzubbboq59-77-6950 15:42-0500Diastolic blood gwxnpipj04 mm[Hg]Giovani Hagen MD Work Phone: [facility] HospitalYecsbnjnid23-96-2910 15:42-0500Heart rate96 /min Giovani Hagen MD Work Phone: [facility] HospitalXsfdquslbq87-09-4109 15:42-5005LeT0% (BldA) [Mass fraction]99 %Giovani Hagen MD Work Phone: [facility] HospitalNwpxseopnv05-23-6395 15:42-0500Systolic blood giivyirb252 mm[Hg]Giovani Hagen MD Work Phone: [facility] HospitalYxfupjrtkg33-93-0023 13:49-0500Body mass index (BMI) [Ratio]35.81 kg/m2Amy Yessy PA Work Phone: [facility] HospitalAnfpoenhrj46-97-3233 13:49-0500Body utaemc21.81 kgAmy Yessy PA Work Phone: 1(332)861-[facility] HospitalFbaiudwile78-97-7324 13:49-0500Diastolic blood mm[Hg]Ayleen Yessy PA Work Phone: [facility] HospitalAoyhbxppnm10-77-0756 13:49-0500Systolic blood iztmlaol210 mm[Hg]Ayleen Yessy PA Work Phone: [facility] HospitalPotbfrsdzu71-52-9489 14:30-0500Diastolic blood qcpygabe61 mm[Hg]Carol Winn MD Work Phone: [facility] Bjwfgq34-64-0650 14:30-0500Heart owlc342 /minCarol Winn MD Work Phone: [place] Qobbun40-40-0236 14:30-0500Respiratory rate 21 /minCarol Winn MD Work Phone: [facility] Duzxxp56-43-3424 14:30-7282CqH7% (BldA) [Mass fraction]100 %Carol Winn MD Work Phone: [facility] Pfpswa32-51-2118 14:30-0500Systolic blood anawpjwt002 mm[Hg]Carol Winn MD Work Phone: [place] Ajaabl25-20-4277 13:40-0500Body .5 cmCarol Winn MD Work Phone: [facility] Miqngc44-32-0322 13:40-0500Body mass index (BMI) [Ratio]33.84 kg/m2Carol Winn MD Work Phone: [facility] Ldzcaf05-16-6151 13:40-0500Body fzeubz41.92 kgCarol Winn MD Work Phone: [place] Rgzjuo62-87-3471 08:50-0500Body .5 cmMarc Dolce DPM FACFAS Work Phone: 1(089)[address] [place], [place] [address]3401-22-2025 08:50-0500Body mass index (BMI) [Ratio]36.21 kg/m2Marc Dolce DPM FACFAS Work Phone: 1(169)[address] [place], [place] 2983401-22-2025 08:50-0500Body bkjqyt59.81 kgMarc Dolce DPM FACFAS Work Phone: 1(195)[address] [place], [place] 2983401-22-2025 08:50-0500Diastolic blood svsfbfti56 mm[Hg]Milton Fraire DPM FACFAS Work Phone: 1(265)[address] [place], [place] 2983401-22-2025 08:50-0500Heart rate92 /min Milton Fraire DPM FACFAS Work Phone: 1(734)[address] [place], [place] 2983401-22-2025 08:50-0500Systolic blood hawwfvjq313 mm[Hg]Milton Fraire DPM FACFAS Work Phone: [phone] HospitalVohszddzbh02-41-2187 14:55-0500Body .5 Marysol Hagen MD Work Phone: [facility] CenterWkdlwdjrbo75-13-3841 14:55-0500Body mass index (BMI) [Ratio]36.21 kg/u8GkeleGiovani Hagen MD Work Phone: [facility] HospitalZohmkjegzg26-97-6933 14:55-0500Body cllnqi64.81 kgGiovani Hagen MD Work Phone: [facility] HospitalSdkxxrfkpl01-35-1112 14:55-0500Diastolic blood tbxjobqp35 mm[Hg]Giovani Hagen MD Work Phone: [facility] HospitalHvqmprduom82-21-1099 14:55-0500Heart uyjc057 /min Giovani Hagen MD Work Phone: [facility] HospitalCmqggzwrqh20-15-4497 14:55-5693SlI1% (BldA) [Mass fraction]96 %Giovani Hagen MD Work Phone: [facility] HospitalQowcmteest10-78-0909 14:55-0500Systolic blood yqlrckro008 mm[Hg]Giovani Hagen MD Work Phone: [facility] HospitalChnpuzfogo67-38-3651 15:13-0500Body .5 cmPrateek Pitts DPM Work Phone: [facility] HospitalOzmqktmhnl96-44-2492 15:13-0500Body mass index (BMI) [Ratio]35.3 kg/q1OujniaucPrateek Pitts DPM Work Phone: [place] [address]Zynwjpaepk67-37-2602 15:13-0500Body wegfuo12.54 kgPrateek Pitts DPM Work Phone: [facility] HospitalGecmdsemxs02-97-3428 15:13-0500Respiratory rate18 /minPrateek Pitts DPM Work Phone: [facility] HospitalXczkrvgmee04-53-5283 15:10-0500Body mass index (BMI) [Ratio]35.12 kg/d6Xjsib Matty DO Work Phone: [facility] HospitalNkhyuzdmiy66-35-1411 15:10-0500Body szzqwe65.09 kgCorey Matty DO Work Phone: [facility] HospitalZhwctyyick63-53-8209 15:10-0500Diastolic blood owxklkdd00 mm[Hg]Darwin Matty DO Work Phone: [facility] HospitalQslkkkduuy89-10-0166 15:10-0500Systolic blood ppqyjfto215 mm[Hg]Darwin Starr DO Work Phone: [facility] CenterPlnxwpwsnm59-88-9532 14:12-0500Body mass index (BMI) [Ratio]33.87 kg/x2Vlufcq Yacapraro PA-C Work Phone: [place] Canowf89-22-3132 14:12-0500Body kisfhm07 kg Iliana Yacapraro PA-C Work Phone: [facility] Cdarmc12-65-8483 14:12-0500Diastolic blood gevvmivc28 mm[Hg]Iliana Yacapraro PA-C Work Phone: [place] Ajrljk61-08-1797 14:12-0500Heart rate84 /min Iliana Yacapraro PA-C Work Phone: [place] Jtjvyp51-86-9586 14:12-0500Systolic blood gzgqaevn807 mm[Hg]Iliana Yacapraro PA-C Work Phone: [facility] Loprbk16-97-3502 16:42-0500Body mass index (BMI) [Ratio]35.67 kg/a6MjmtwpkJosephine Gilman MANAGER COMMUNICATION Work Phone: [facility] HospitalXwpwzsepym60-61-8694 16:42-0500Body temperature 97.7 [degF]Joesphine Gilman MANAGER COMMUNICATION Work Phone: [facility] HospitalPdbkwezvza14-59-9115 16:42-0500Body .45 kgJosephine Gilman MANAGER COMMUNICATION Work Phone: [facility] HospitalTbdguggzkk93-52-1253 16:42-0500Diastolic blood jekxjvtm17 mm[Hg]Josephine Gilman MANAGER COMMUNICATION Work Phone: [facility] HospitalGoknoqykex78-16-6729 16:42-0500Heart hrgb594 /min Josephine Gilman MANAGER COMMUNICATION Work Phone: [facility] HealthcareComment on above:repeat pulse 96bpm apical.04-18-2024 16:42-0500Respiratory rate20 /minJosephine Gilman MANAGER COMMUNICATION Work Phone: no[facility] CenterDktkznkjpk70-02-3260 16:42-8457OfO1% (BldA) [Mass fraction]97 %Josephine Gilman MANAGER COMMUNICATION Work Phone: no[facility] CenterHjgayvqabb48-30-3023 16:42-0500Systolic blood qalfiuul824 mm[Hg]Josephine Munozrodney MANAGER COMMUNICATION Work Phone: [facility] HospitalQkqxhykfvi79-90-1114 10:39-0500Body iuycfc485.5 Jennifer Dialvely MANAGER COMMUNICATION Work Phone: [facility] CenterJqujpazdpi04-88-4032 10:39-0500Body mass index (BMI) [Ratio]35.01 kg/k4HwegusDeena Lyn MANAGER COMMUNICATION Work Phone: [facility] HospitalZaoacegafh53-22-4691 10:39-0500Body kwzaxz79.82 kgDeena Dialvely MANAGER COMMUNICATION Work Phone: [facility] HospitalYjhszngmkz03-04-7912 10:39-0500Diastolic blood mbchiubc45 mm[Hg]Deena Lyn MANAGER COMMUNICATION Work Phone: [facility] HospitalBismbwhpyu47-33-5202 10:39-0500Heart ifxf088 /min Deena Lyn MANAGER COMMUNICATION Work Phone: [facility] HospitalNrgiqcwqnr23-61-7233 10:39-0500Respiratory rate16 /minScole Lyn MANAGER COMMUNICATION Work Phone: [facility] HospitalYodxjptpoo29-01-0315 10:39-2035RqZ3% (BldA) [Mass fraction]99 %Deena Lyn MANAGER COMMUNICATION Work Phone: [facility] HospitalOldkurmuce63-98-6019 10:39-0500Systolic blood ljgyaubm823 mm[Hg]Deena Lyn MANAGER COMMUNICATION Work Phone: [facility] HospitalKmgwlaeseq94-86-9218 08:40-0500Body mabaww197.5 Marysol Hagen MD Work Phone: [facility]Ehfjoqfleg96-05-0461 08:40-0500Body mass index (BMI) [Ratio]34.39 kg/s4NqgrdGiovani Hagen MD Work Phone: [facility] HospitalGvcljiftrm94-97-6730 08:40-0500Body iszdsq28.28 kgGiovani Hagen MD Work Phone: [facility] HospitalDnzukfaehr72-69-2759 08:40-0500Diastolic blood bajuqlhf38 mm[Hg]Giovani Hagen MD Work Phone: [facility] HospitalAgrofkfkfe35-83-8081 08:40-0500Heart rate88 /min Giovani Hagen MD Work Phone: [facility] HospitalYhelmygztz69-32-0590 08:40-5732NlH4% (BldA) [Mass fraction]94 %Giovani Hagen MD Work Phone: [facility] HospitalQpuoewdkax23-46-0870 08:40-0500Systolic blood iuffhyod655 mm[Hg]Giovani Hagen MD Work Phone: [facility] HospitalIqbgizuswx53-92-2664 16:29-0500Body mass index (BMI) [Ratio]34.93 kg/s5Ecfyr Matty DO Work Phone: [facility] HospitalIzmvikmbsl09-88-7192 16:29-0500Body amqkjc66.64 kgCorey Matty DO Work Phone: [facility] HospitalBtbwlvaidk28-56-6814 16:29-0500Diastolic blood vozppvyw03 mm[Hg]Darwin Matty DO Work Phone: [facility] HospitalLsjxazcela59-95-0235 16:29-0500Systolic blood qdularmt173 mm[Hg]Darwin Matty DO Work Phone: [facility] HospitalXcershejan29-45-4363 09:14-0400Body enedom519.5 Marysol Hagen MD Work Phone: [facility] HospitalEpslyeictl97-48-7671 09:14-0400Body mass index (BMI) [Ratio]34.93 kg/z5GnodmGiovani Hagen MD Work Phone: [facility] HospitalOkvdkjzfse19-98-3219 09:14-0400Body .64 kgGiovani Hagen MD Work Phone: [place] [address]Txgqupevmw24-96-2994 09:14-0400Diastolic blood mgvnemwp23 mm[Hg]Giovani Hagen MD Work Phone: [facility] HospitalKfyuprhzmp82-49-3642 09:14-0400Heart yzbf099 /min Giovani Hagen MD Work Phone: [facility] HospitalJtmjgbwfrq58-02-7850 09:14-0718OyD9% (BldA) [Mass fraction]99 %Giovani Hagen MD Work Phone: [facility] HospitalEgfwqycayu55-44-7028 09:14-0400Systolic blood ozhzupap232 mm[Hg]Giovani Hagen MD Work Phone: [facility] HospitalWubuiwvipw72-56-0322 13:37-0400Diastolic blood monrcred07 mm[Hg]Darwin Matty DO Work Phone: [facility] HospitalWbleqtbelz55-88-7675 13:37-0400Systolic blood behgovbe932 mm[Hg]Darwin Matty DO Work Phone: [facility] HospitalFmxueizkvn06-05-6946 16:00-0400Body .5 Marysol Hagen MD Work Phone: [facility] HospitalZdcksproki92-68-1332 16:00-0400Body mass index (BMI) [Ratio]34.75 kg/l0FclezGiovani Hagen MD Work Phone: [facility] HospitalWelvrxszrc95-24-8389 16:00-0400Body nimpsu82.18 kgGiovani Hagen MD Work Phone: [facility] HospitalGatnsdnxsg30-88-4955 16:00-0400Diastolic blood alixwuqn23 mm[Hg]Giovani Hagen MD Work Phone: [facility] HospitalSsifjcqtkb01-71-1106 16:00-0400Heart rate96 /min Giovani Hagen MD Work Phone: [place] [address]Bygdjwdabb98-70-0327 16:00-2266JxJ5% (BldA) [Mass fraction]98 %Giovani Hagen MD Work Phone: [place] [address]Hnfufoehfw05-34-4716 16:00-0400Systolic blood iikkovdm750 mm[Hg]Giovani Hagen MD Work Phone: [facility] HospitalXxoofsizbg28-81-1941 15:17-0400Blood Pressure LocationJENNIFER OLEG [facility]09-05-2024 15:17-0400Diastolic blood ookdfsul296 mm[Hg]BHAVESH OLEG [facility]09-05-2024 15:17-0400Heart webu514 /minJENNIFER OLEG [facility]09-05-2024 15:17-0400Respiratory rate18 /minJENNIFER OLEG [facility]09-05-2024 15:17-0400Systolic blood vdklnkuf117 mm[Hg]BHAVESH OLEG [facility]09-03-2024 15:07-0400Body wxfevi949.5 Marysol Hagen MD Work Phone: [facility] HospitalBftxetujoa18-21-7224 15:07-0400Body mass index (BMI) [Ratio]34.2 kg/e6VimhaGiovani Hagen MD Work Phone: [facility] HospitalNcdwkmyhiu71-65-7808 15:07-0400Body semjkt79.82 kgGiovani Hagen MD Work Phone: [facility] HospitalSxnejyvlkh68-47-1073 15:07-0400Diastolic blood olmhcolg67 mm[Hg]Giovani Hagen MD Work Phone: [facility] HospitalWvwzgggogu91-20-0138 15:07-0400Heart rate98 /min Giovani Hagen MD Work Phone: [facility] HospitalGvkqcaavgp52-98-5638 15:07-7591MtE5% (BldA) [Mass fraction]98 %Giovani Hagen MD Work Phone: [facility] CenterSbwuehwcfl64-45-0176 15:07-0400Systolic blood cqkdzyct433 mm[Hg]Giovani Hagen MD Work Phone: [facility] CenterKdaqmcgcor28-89-2394 15:01-0400Body fhghni519.5 Tree Carty MD Work Phone: [phone] Vijfdy55-47-2314 15:01-0400Body mass index (BMI) [Ratio]34.39 kg/g5YcefqgbxSolo Carty MD Work Phone: [phone] Xrwlkh40-44-6738 15:01-0400Body fdngee79.28 kgSolo Carty MD Work Phone: [phone] Qjagdd55-19-5840 15:01-0400Diastolic blood qthamvqu27 mm[Hg]Solo Carty MD Work Phone: [phone] Zmcjub49-29-8683 15:01-0400Heart rate94 /min Sloo Carty MD Work Phone: [phone] Ahbfze33-20-4192 15:01-0400Systolic blood qhzvfmyk957 mm[Hg]Solo Carty MD Work Phone: [phone] Ljvmun88-09-0945 13:10-0400Body .5 Johnathan Freeman MD Work Phone: [phone] Dxecpx13-30-2551 13:10-0400Body ogqtce20 kg Samuel Freeman MD Work Phone: [phone] Wqcqhx29-05-2094 13:10-0400Diastolic blood tqlefrgj48 mm[Hg]Samuel Freeman MD Work Phone: [phone] Mfajry02-45-9989 13:10-0400Heart nbhg022 /minSamuel Freeman MD Work Phone: [phone] Mwfolr85-84-4963 13:10-0400Systolic blood uwhwiybo264 mm[Hg]Samuel Freeman MD Work Phone: [facility] SouthYyppnt93-19-6403 15:30-0400Diastolic blood mm[Hg]Carol Winn MD Work Phone: [facility] SouthPnqrdv61-49-6121 15:30-0400Heart rate99 /min Carol Winn MD Work Phone: [facility] SouthBeccvg44-78-2548 15:30-0400Respiratory rate 24 /minCarol Winn MD Work Phone: [facility] Jokdlq97-98-8773 15:30-9075FhK8% (BldA) [Mass fraction]97 %Carol Winn MD Work Phone: [facility] SouthMsmzzk86-40-1616 15:30-0400Systolic blood dikvltpj836 mm[Hg]Carol Winn MD Work Phone: c[facility] SouthXxlcuf02-68-6234 14:10-0400Body .5 cmCarol Winn MD Work Phone: [facility] SouthEbtitn12-20-2942 14:10-0400Body mass index (BMI) [Ratio]33.84 kg/m2Carol Winn MD Work Phone: c[facility] SouthZidtux46-11-7483 14:10-0400Body siltre72.92 kgCarol Winn MD Work Phone: [facility] SouthSncppt43-90-9742 12:40-0500Diastolic blood jfwmkuvf15 mm[Hg]Carol Winn MD Work Phone: [facility] SouthOzuvla27-25-6314 12:40-0500Heart rate70 /min Carol Winn MD Work Phone: [facility] Aukqel85-13-1002 12:40-0500Respiratory rate 12 /minCarol Winn MD Work Phone: [facility] Luvdvk00-93-4015 12:40-3055KxY0% (BldA) [Mass fraction]100 %Carol Winn MD Work Phone: [facility] Zsfber06-50-6469 12:40-0500Systolic blood ykjfzooo543 mm[Hg]Carol Winn MD Work Phone: [facility] SouthEjrpzr98-71-5497 11:18-0500Body mmitss096.5 cmCarol Winn MD Work Phone: c[facility] SouthYybkko18-41-8165 11:18-0500Body mass index (BMI) [Ratio]33.84 kg/m2Carol Winn MD Work Phone: [facility] Vpfmkw10-36-8511 11:18-0500Body aphuxl41.92 kgCarol Winn MD Work Phone: [facility] Egqrhc29-80-4363 11:29-0500Body sivtgt70.73 kgCarol Winn MD Work Phone: [facility] SouthPvaewk20-54-2183 11:29-0500Diastolic blood duvcglzr07 mm[Hg]Carol Winn MD Work Phone: [facility] Tmemnk83-56-7372 11:29-0500Heart qvda283 /minCarol Winn MD Work Phone: [facility] Gsbxzc35-88-2750 11:29-0500Systolic blood akzwfryh073 mm[Hg]Carol Winn MD Work Phone: c[facility] SouthZykcpe89-59-9614 15:30-0500Body ygcjxg836.75 cmImad Priceonomicsad Other [employer] Other 01-10-2023 15:30-0500Body mass index (BMI) [Ratio] 34.55 kg/m2Imad Asaad Other [employer] Other 01-10-2023 15:30-0500Body gbawkz24.09 kgImad Priceonomicsad Other [employer] Other 01-10-2023 15:30-0500Diastolic blood whwtvqki96 mm[Hg] Imad Asaad Other [facility] [employer] Other 01-10-2023 15:30-0500Systolic blood rwbbuszv160 mm[Hg] Imad Asaad Other [employer] Other 01-10-2023 14:47-0500Body weight0 kgMD Giovani Hagen Work Phone: [facility] Encounters Encounter DateEncounter TypeCare ProviderFacilityStart: 33-29-2281imtomrlgzo Lauren TannaFacility:[place]Start: 03-03-2025 End: 85-61-8567Dewllk outpatient visit 25 minutesMarc D Dolce DPM FACFAS Work Phone: noms NMA PODComment on above:Other synovitis and tenosynovitis, right ankle and foot (Primary Dx); Foot drop, leftStart: 03-03-2025 End: 06-26-2382vltmlzgcduIVXKS M ALDAMercy [facility] HospitalStart: 03-03-2025 End: 13-38-3026Yziiik flowsheetMarc D Dolce DPM FACFAS Work Phone: noms [facility] Hospitaltart: 03-03-2025 End: 96-75-8455Ahalsw flowsheetMarc D Dolce DPM FACFAS Work Phone: noms [facility] TexasnStart: 03-03-2025 End: 54-98-9461Ntdkubpgv encounterMarc D Dolce DPM FACFAS Work Phone: noms NMA PODStart: 02-27-2025 End: 45-16-4582Bmkieki encounter procedureAyleen JUSTICE Work Phone: noms HealthcareStart: 02-27-2025 End: 41-61-4039Xtrixylk preventive med est patient 18-39 yrsAmy Yessy VINH Work Phone: noms [place] OBGYNComment on above:Well woman exam with routine gynecological exam; H/O: hysterectomy; Abnormal urine odor; BV (bacterial vaginosis)Start: 02-27-2025 End: 05-87-1134JroctsUecdq M Hemmer PA Work Phone: noms [facility] MedinceComment on above:Attention deficit hyperactivity disorder (ADHD), predominantly inattentive type; Bipolar disorder, in partial remission, most recent episode manic (HCC); Agoraphobia with panic attacksStart: 05-19-9030fpxedvkrhxHITZD MABALAY HIEU [facility]: 02-18-2025 End: 92-28-4227fjnbcfghekELYZO MABALAY ALDAFacility:[facility] Start: 02-17-2025 End: 05-89-0817tcequtxdedDJTWK MABALAY ALDAFacility:[facility]tart: 02-17-2025 End: 59-08-7843llngvxxurzMRTJO MCLAREN FLINTArmando ALDAFacility:[facility] Start: 02-13-2025 End: 12-72-3722Mgifqmsbt encounterJatin Parisi MD Work Phone: noms [place] NeurologyStart: 02-12-2025 End: 99-64-3990pzmetysmfmLXTC D DOLCENot AvailableStart: 02-12-2025 End: 72-15-8979Cbcfnm outpatient visit 15 minutesMarc D Dolce DPM FACFAS Work Phone: noms NMA PODComment on above:Foot drop, left (Primary Dx); Other synovitis and tenosynovitis, right ankle and foot; Sprain of anterior talofibular ligament of right ankle, subsequent encounter; Other enthesopathy of right foot and ankleStart: 02-12-2025 End: 69-05-1422Mamvhx flowsheetMarc D Dolce DPM FACFAS Work Phone: noms [facility] TexaswnStart: 02-12-2025 End: 63-34-5338Vkpimj flowsheetMarc D Dolce DPM FACFAS Work Phone: noms [facility] AustintownStart: 02-12-2025 End: 07-44-4473Ewxnljpie encounterMarc D Dolce DPM FACFAS Work Phone: noms NMA PODComment on above:sent 03/03Start: 02-06-2025 End: 53-57-0195Xuoonehke Result EncounterGeneric External Data ProviderNOMS External Department UnsolicitedStart: 02-06-2025 End: 73-19-8053Itbpubpfa Result EncounterGeneric External Data ProviderNOMS External Department UnsolicitedStart: 01-22-2025 End: 37-41-6495DzhwbkHaeno M Hemmer PA Work Phone: noms [employer] MedinceComment on above:Attention deficit hyperactivity disorder (ADHD), predominantly inattentive type; Bipolar disorder, in partial remission, most recent episode manic (HCC); Agoraphobia with panic attacksStart: 41-96-7856zsqwxpawxrAMCQX M ALDAMercy [facility] HospitalStart: 01-18-2025 End: 16-72-9195HuavszLcrkv M Alda MD Work Phone: noms Isidro Kazaana MedinceComment on above:Major depressive disorder, recurrent, moderate (HCC)Start: 01-15-2025 End: 78-69-9427Enwtiw outpatient visit 15 minutesMarc D Dolce DPM FACFAS Work Phone: NOOQ NMA PODComment on above:Other synovitis and tenosynovitis, right ankle and foot (Primary Dx); Other enthesopathy of right foot and ankleStart: 01-15-2025 End: 98-08-8221yxzxxjdguyYOQF D DOLCENot AvailableStart: 01-14-2025 End: 11-61-5334nqlyinyuwtCEMNIYO W BAUERNot AvailableStart: 35-11-3974irjxwpjfncbriana Tinajero [facility] HospitalStart: 01-13-2025 End: 15-69-8503Eifreigid encounterGiovani Hagen MD Work Phone: noms [facility] Scott MedinceStart: 01-09-2025 End: 44-05-8349Zwbdqeikh Result EncounterGiovani Hagen MD Work Phone: noms External Department UnsolicitedStart: 01-09-2025 End: 26-23-9413Zllspyhxt Result EncounterGiovani Hagen MD Work Phone: noms External Department UnsolicitedStart: 01-08-2025 End: 03-23-1573inadpjvtxzNJIAC MABALAY ALDAFacility:[facility] Start: 01-06-2025 End: 15-69-4810Gseigt flowsYnes Hagen MD Work Phone: noms [facility] Scott MedinceStart: 01-06-2025 End: 69-85-5275Iuyrrf flowsYnes Hagen MD Work Phone: noms [facility] Scott MedinceStart: 01-06-2025 End: 00-09-7442iepoadiyxvKvq ProviderCardiologyComment on above:TestingStart: 01-06-2025 End: 41-94-0218Imunnae encounter statusGiovani Hagen MD Work Phone: [facility] Work Phone: Start: 01-06-2025 End: 25-54-4820Lfjrgibf preventive med est patient 18-39 yrsGiovani Hagen MD Work Phone: noms [facility] Scott MedinceComment on above:Well adult health check (Primary Dx); Chest pain, unspecified type; Elevated liver enzymes; Type 2 diabetes mellitus without complication, without long-term current use of insulin (HCC)Start: 12-31-2024 End: 32-84-0343bcosnqjgjcOryodg TannaFacility:[facility] [place]vueStart: 12-31-2024 End: 16-17-8193Veijbcr encounter Ayana Cramer [facility] [place] start: 12-30-2024 End: 51-75-9033tmmhfuroquDyjeptm Aroldo WATERSFacility:[place] BellevueStart: 12-30-2024 End: 44-52-1746Fxgurr flowsheetMarc D Dolce DPM FACFAS Work Phone: noms [facility] TexaswnStart: 12-30-2024 End: 10-29-4839Peginw flowsheetMarc D Dolce DPM FACFAS Work Phone: noms [facility] TexaswnStart: 12-30-2024 End: 91-94-5277Ijaosa outpatient visit 15 minutesMarc D Dolce DPM FACFAS Work Phone: noms NMA PODComment on above:Other synovitis and tenosynovitis, right ankle and foot (Primary Dx); Right foot pain; Other enthesopathy of right foot and ankleStart: 12-30-2024 End: 79-42-6835mcuyetghrcYWDI D DOLCENot AvailableStart: 12-30-2024 End: 00-77-8734Hftzbes encounter Lizabeth Romero APRN.CNP Work Phone: GynecologyComment on above:Chronic pelvic pain in female (Primary Dx); Other specified dyspareunia; Pelvic pain in female; High-tone pelvic floor dysfunction; Vulvodynia; Stress incontinence; Irritable bowel syndrome with constipation; Vaginal drynessStart: 12-30-2024 End: 12-74-7330ydoeelteenYOFTV MABALAY ALDAFacility:[facility] Start: 12-26-2024 End: 56-27-1688Ehkzyi outpatient visit 25 minutesJatin Parisi MD Work Phone: noms [place] NeurologyComment on above:Lumbar radiculopathy (Primary Dx); Numbness and tingling; Atypical migraineStart: 12-26-2024 End: 27-17-0566pstfrgnjljSIGYGOA W BAUERNot AvailableStart: 12-16-2024 End: 67-98-5490Jkygqnmtg Miley JUSTICE Work Phone: NOVD [facility]ro Scott MedinceComment on above:dose correction on medStart: 12-16-2024 End: 38-14-0235Xzzvua outpatient visit 25 minutesGiovani Hagen MD Work Phone: NOCA Is[facility]ro Scott MedinceComment on above:Nonalcoholic steatohepatitis (ENGLISH) (Primary Dx); PTSD (post-traumatic stress disorder) ; Major depressive disorder, recurrent, moderate (HCC); Lumbar radiculopathy; Weight gain; Borderline diabetes; Morbid (severe) obesity due to excess calories (CMS-HCC); Impaired fasting glucose; Obesity, class 2; Body mass index (BMI) 36.0-36.9, adultStart: 12-16-2024 End: 68-63-6992eydfmnrekrFGPTT M ALDANot AvailableStart: 12-13-2024 End: 30-97-8440Ofhahk outpatient visit 25 minutesMilton Frarie DPM FACFAS Work Phone: noms NMA PODComment on above:Sprain of calcaneofibular ligament of right ankle, initial encounter (Primary Dx); Right foot pain; Other synovitis and tenosynovitis, right ankle and foot; Other enthesopathy of right foot and ankleStart: 12-13-2024 End: 27-84-5131hkazswrvthUPPY D DOLCENot AvailableStart: 12-12-2024 End: 32-46-3604Rlovao Nisha JUSTICE Work Phone: NOMS [facility] MedinceStart: 12-12-2024 End: 37-53-7119Pcctfy Nisha JUSTICE Work Phone: NOND [facility] MedinceStart: 12-12-2024 End: 78-55-3415Ijhpmccvb Result EncounterSandy JUSTICE Work Phone: NOMS External Department UnsolicitedStart: 12-12-2024 End: 52-32-0956Reqnkf outpatient visit 25 minutesSandy JUSTICE Work Phone: N[facility] HospitalnceComment on above:Elevated liver enzymes (Primary Dx); Nephrocalcinosis; Bilateral nephrolithiasis; Right ovarian cyst; Hypokalemia; Weight gain; Attention deficit hyperactivity disorder (ADHD), predominantly inattentive type ; History of alcohol dependence (HCC); Impaired fasting glucose; Other fatigue; Anxiety; Other chronic painStart: 12-12-2024 End: 45-87-8869pblyittlylXAJIX M HEMMERNot AvailableStart: 12-09-2024 End: 85-97-4886okykyclngfCVRM DOLCENot AvailableStart: 10-30-2024 End: 31-24-7330UnizceGidbp M Hemmer PA Work Phone: noMS FMComment on above:Anxiety; Bipolar disorder, in partial remission, most recent episode manic (HCC)Start: 10-23-2024 End: 01-29-2595Gqqmvepyj Result EncounterGeneric External Data ProviderNOMS External Department UnsolicitedStart: 10-23-2024 End: 30-45-4150Jyclwfqmi Result EncounterGeneric External Data ProviderNOMS External Department UnsolicitedStart: 63-48-6384spkfagrzjmILLKUAngel HAGEN [facility]: 10-23-2024 End: 62-07-9079Losrswnuru hospital visit by physicianGeneral Iona Matt Mc Work Phone: RadiologyComment on above:Pelvic floor dysfunction [M62.89]Start: 10-21-2024 End: 50-93-0437Hdaahnysk Result EncounterShannon Ochoa MANAGER COMMUNICATION Work Phone: noms External Department UnsolicitedStart: 10-21-2024 End: 54-93-2779Swavuayns Result EncounterShannon Ochoa MANAGER COMMUNICATION Work Phone: noms External Department UnsolicitedStart: 10-21-2024 ambulatoryMARIO HARPERFacility:[facility] Hospitaltart: 10-21-2024 End: 42-79-2179Jfugrzikrz hospital visit by physicianArron [facility] Work Phone: [facility] Radiology GeneralComment on above:Pelvic floor dysfunction [M62.89]Start: 10-15-2024 End: 21-00-5001jzcdazxdmtJCNQY MABALAY ALDAFacility:[facility] Start: 10-15-2024 End: 57-37-9367Ulufxwziw to same day surgery penelopeMario Harper APRN.GAME PROGRAMER Work Phone: [facility] hospitalect[facility] SurgeryStart: 10-15-2024 End: 48-88-0655Ojeudsm encounter procedureMario Harper APRN.GAME PROGRAMER Work Phone: [facility] hospitalectal SurgeryStart: 10-11-2024 End: 03-72-4866uerjncgqdrAphd Jackson PT, DPT Work Phone: [facility] TherapyStart: 10-11-2024 End: 18-83-9906Mgziulk encounter Erika Rock PT, DPT Work Phone: [facility] Physical TherapyComment on above:Muscle spasm (Primary Dx); Pelvic floor dysfunction; Chronic constipationStart: 10-11-2024 End: 69-32-5006mxxeukdjhqKLLRG KARYNFRANKLIN COUNTY MEDICAL CENTERY ALDAFacility:[facility] Start: 10-10-2024 End: 48-79-1029Bmeduv flowsBlu Ochoa MANAGER COMMUNICATION Work Phone: noms NEUROLOGYStart: 10-10-2024 End: 55-24-8214Pyjcrr flowsheetShannon Ochoa MANAGER COMMUNICATION Work Phone: noms NEUROLOGYStart: 10-10-2024 End: 40-19-6577Vaizlc outpatient new 45 minutesJactristen Ochoa MANAGER COMMUNICATION Work Phone: noms [facility] NEURO 210Comment on above:Numbness and tingling (Primary Dx); Atypical migraineStart: 10-10-2024 End: 69-16-7331ysssrtmivdMENVRJDCRISadi Blair AvailableStart: 10-09-2024 End: 53-45-0625Vtkseaq encounter procedureMario Harper APRN.GAME PROGRAMER Work Phone: Colorectal SurgeryComment on above:Pelvic floor dysfunction (Primary Dx); Chronic constipation; GastroparesisStart: 10-09-2024 End: 97-03-0396qpwrerhdvfHLPXE MABALAArmando ALDAFacility:[facility] Start: 10-08-2024 End: 72-71-3885Wzijlt Andry Lyn NP Work Phone: NOMS CI FMStart: 10-08-2024 End: 11-13-1746Imjwzi Andry Lyn MANAGER COMMUNICATION Work Phone: NOMS CI FMStart: 10-08-2024 End: 26-80-9943PboraqNtgyoo M Shively NP Work Phone: NOMS CI FMComment on above:Attention deficit hyperactivity disorder (ADHD), predominantly inattentive type ; Bipolar disorder, in partial remission, most recent episode manic (HCC); Agoraphobia with panic attacksStart: 10-08-2024 End: 94-26-5605Riakvg outpatient visit 25 minutesShmaryan Lyn NP Work Phone: NOMS CI FMComment on above:Numbness [...] intermittent asthma without complication (HCC)Start: 10-01-2024 End: 34-04-1007Qluxhaeox Sabrina Winn MD Work Phone: GastroenterologyStart: 09-25-2024 End: 16-62-2938Qncqyb Andry Lyn MANAGER COMMUNICATION Work Phone: NOMS CI FMStart: 09-25-2024 End: 32-16-9755Ufncnp Andry Lyn MANAGER COMMUNICATION Work Phone: NOMS CI FMStart: 09-25-2024 End: 47-85-8173Awksud outpatient visit 25 minutesDeena Lyn MANAGER COMMUNICATION Work Phone: NOMS CI FMComment on above:Extrusion of suture, sequela (Primary Dx)Start: 09-25-2024 End: 04-85-6585stdmauqaejPRSNDQ M SHIVELYNot AvailableStart: 09-17-2024 End: 27-01-3331Hmvutu Nisha Hammond PA Work Phone: NOMS CI FMStart: 09-17-2024 End: 46-24-5578Vrchhv Nisha Bob Hemmer PA Work Phone: NOMS CI FMStart: 09-17-2024 End: 02-94-1332Prjhzn outpatient visit 15 minutesSandy Hammond PA Work Phone: NOMS CI FMComment on above:Laceration of right knee without complication, sequela (Primary Dx)Start: 09-17-2024 End: 95-86-7452vbzvbvymxeRRJOG M HEMMERNot AvailableStart: 09-10-2024 End: 33-18-1660Dwaths outpatient visit 25 minutesGiovani Hagen MD Work Phone: NOMS CI FMComment on above:Fall in home, sequela (Primary Dx); Laceration of right knee, subsequent encounterStart: 09-10-2024 End: 88-33-6997mzqbszwwquLKBLL M ALDANot AvailableStart: 09-04-2024 End: 09-09-0877Wuhlcs outpatient visit 15 minutesMarc D Dolce DPM FACFAS Work Phone: NOMS NMA PODComment on above:Sprain of anterior talofibular ligament of right ankle, subsequent encounter (Primary Dx); Right ankle instabilityStart: 09-04-2024 End: 93-93-7665opdghbakaoFBRA D DOLCENot AvailableStart: 09-02-2024 End: 45-40-6910Dssjue outpatient visit 25 minutesGiovani Hagen MD Work Phone: NOMS CI FMComment on above:Mood swings (Primary Dx); Bipolar disorder, in partial remission, most recent episode manic (CMS/HCC); Anxiety; Sinus tachycardiaStart: 09-02-2024 End: 71-28-0536zmjakaynalYFLLX M ALDANot AvailableStart: 08-28-2024 End: 48-94-8345EsxprhVhmft M Alda MD Work Phone: noms CI FMComment on above:Attention deficit hyperactivity disorder (ADHD), predominantly inattentive type (CMS/HCC); Bipolar disorder, in partial remission, most recent episode manic (CMS/HCC); 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CMS/HCC)Obesity (BMI 35.0-39.9 without comorbidity)Start: 08-21-2024 End: 59-90-6609xuexkfgmiiNJSV D DOLCENot AvailableStart: 08-21-2024 End: 34-62-4802Mneguu outpatient visit 15 minutesMarc D Dolce DPM FACFAS Work Phone: noms NMA PODComment on above:Sprain of anterior talofibular ligament of right ankle, subsequent encounter (Primary Dx)Start: 08-21-2024 End: 51-40-5932Gbnigx flowsheetMarc D Dolce DPM FACFAS Work Phone: noms ASC PODStart: 08-21-2024 End: 70-86-7999Svhhtq flowsheetMarc D Dolce DPM FACFAS Work Phone: noms ASC PODStart: 05-91-5599Uqq-patient / Non-visit Giovani Hagen MD Work Phone: [facility] Work Phone: Start: 08-16-2024 End: 48-02-0824Npvrrbysvn and management of inpatientGiovani Hagen MD Work Phone: [facility] Work Phone: Start: 08-14-2024 End: 07-35-2582fbhnudzavvHZLO D DOLCENot AvailableStart: 08-14-2024 End: 55-95-8965Kelcly outpatient visit 25 minutesMarc D Dolce DPM FACFAS Work Phone: noms NMA PODComment on above:Contusion of right ankle, initial encounter (Primary Dx); Peroneal tendon tear, right, initial encounterStart: 08-14-2024 End: 43-34-5402Ekcryt flowsheetMarc D Dolce DPM FACFAS Work Phone: noms ASC PODStart: 08-14-2024 End: 01-18-9424Zrzftq flowsheetMarc D Dolce DPM FACFAS Work Phone: noms ASC PODStart: 08-13-2024 End: 73-83-5874Cxuoexb encounter procedureSolo Carty MD Work Phone: cardiologyComment on above:Palpitation (Primary Dx) Start: 08-13-2024 End: 33-26-7797ndvumlllemTBRDK MABALAArmando ALDAFacility:[facility] Start: 08-13-2024 End: 64-52-4277sjpphtiifhQEIQK MABALAY ALDAFacility:[facility] Start: 55-26-2841mwokkmaakpWHQHK MABFRANKLIN COUNTY MEDICAL CENTERArmando ALDAFacility:[facility] Start: 08-01-2024 End: 32-79-4688Siwwwo outpatient visit 25 minutesGiovani Hagen MD Work Phone: noMS CI FMComment on above: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CMS/HCC) (Primary Dx); Anxiety; PTSD (post-traumatic stress disorder) (CMS/HCC); 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CMS/HCC)Start: 08-01-2024 End: 05-79-0539tvsmqtaidoVDJBF M ALDANot AvailableStart: 07-31-2024 End: 35-28-8410TanevqOsspn M Alda MD Work Phone: noMS CI FMComment on above:Anxiety; PTSD (post-traumatic stress disorder) (CMS/HCC)Start: 07-24-2024 End: 49-61-0736dxutkibzouDLBD D DOLCENot AvailableStart: 07-24-2024 End: 12-12-6248Qqhvzvz encounter procedureMarc D Dolce DPM FACFAS Work Phone: NOMS NMA PODComment on above:Peroneal tendon tear, right, initial encounter (Primary Dx); Right ankle instability; Contracture of right ankleStart: 07-10-2024 End: 81-35-6179L-[facility] ProviderGynecologyStart: 07-10-2024 End: 79-25-5828Oswfyzloqv hospital visit by physicianFormerly [facility] Work Phone: RadiologyComment on above:Chronic idiopathic constipation [K59.04]Start: 07-10-2024 End: 90-00-6584ednugeuyyrQr Bundling Machine Operator [facility] Work Phone: Obstetrics/GynecologyStart: 07-10-2024 End: 28-11-2340Rkagpsl encounter procedureJavy Boudreaux MD Work Phone: CB/GynecologyComment on above:Other specified dyspareunia (Primary Dx); Pelvic pain in femaleConsult to Chronic Pelvic Pain programStart: 07-04-2024 End: 97-54-2664Jnotxw outpatient visit 25 minutesGiovani Hagen MD Work Phone: noMS CI FMComment on above:Anxiety (Primary Dx); Generalized idiopathic epilepsy and epileptic syndromes, not intractable, 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); 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CMS/HCC); PTSD (post-traumatic stress disorder) (CMS/HCC)Start: 07-04-2024 End: 29-60-7470eqtuyngyufGPUKC M ALDANot AvailableStart: 07-03-2024 End: 42-80-9731qrqyjdaoogJIHW D DOLCENot AvailableStart: 07-03-2024 End: 44-18-6918Zxxkicr encounter procedureMarc D Dolce DPM FACFAS Work Phone: noMS NMA PODComment on above:Peroneal tendon tear, right, initial encounter (Primary Dx); Right foot painStart: 07-03-2024 End: 68-31-5147Fiymsb flowsheetMarc D Dolce DPM FACFAS Work Phone: NOJK ASC PODStart: 07-03-2024 End: 85-99-4262Cqtnwb flowsheetMarc D Dolce DPM FACFAS Work Phone: NOMS ASC PODStart: 06-26-2024 End: 25-76-6923khzgcyzmfzUUDF D DOLCENot AvailableStart: 06-26-2024 End: 98-88-2400Pvguhlp encounter procedureMarc D Dolce DPM FACFAS Work Phone: NOXG NMA PODComment on above:Peroneal tendon tear, right, initial encounter (Primary Dx); Right ankle instabilityStart: 06-26-2024 End: 97-01-7055Dtesls flowsheetMarc D Dolce DPM FACFAS Work Phone: NOMS ASC PODStart: 06-26-2024 End: 91-83-7113Mccusm flowsheetMarc D Dolce DPM FACFAS Work Phone: NOGO ASC PODStart: 06-25-2024 End: 79-59-9250Cyxbdz outpatient visit 15 minutesCorey Matty DO Work Phone: NOMS BCP OBComment on above:Pain in female genitalia on intercourse; CystitisStart: 06-25-2024 End: 30-22-2449ubrckjhpwoTDVWS FAZIONot AvailableStart: 06-25-2024 End: 83-45-5777Hrwija flowsheetCorey Matty DO Work Phone: NOMS BCP OBStart: 06-25-2024 End: 86-37-2840Rbvpoz flowsheetCorey Matty DO Work Phone: NOMS BCP OBStart: 06-25-2024 End: 28-22-3644Fzpxumoj Result EncounterCorey Matty DO Work Phone: NORQ External Department UnsolicitedStart: 06-19-2024 End: 24-18-8080Ablfbw follow up visit related to original Joseph Pitts DPM Work Phone: NOMS MS PODComment on above:Peroneal tendon tear, right, initial encounter (Primary Dx); Right ankle instability; Contracture of right ankle; Sprain of anterior talofibular ligament of right ankle, subsequent encounter Start: 06-19-2024 End: 50-88-8548uuryxryjecZDSWSVXQ Eleuterio MILONot AvailableStart: 06-19-2024 End: 95-35-4635Gfenvj flowsheetNicmaritzabrian Pitts DPM Work Phone: NOMS MS PODStart: 06-19-2024 End: 23-88-0497Hhkyyg flowsheetNicmaritzabrian Pitts DPM Work Phone: NOMS MS PODStart: 06-18-2024 End: 94-01-5761HdctlwTmytp M Hemmer PA Work Phone: NOMS CI FMComment on above:Anxiety; Bipolar disorder, in partial remission, most recent episode manic (CMS/HCC) Start: 06-12-2024 End: 76-02-1895Lqqobcpye encounterMarc D Adryanbran DPM FACFAS Work Phone: NOMS PODStart: 06-06-2024 End: 79-17-2281bwsaybolgvLSQHM M ALDANot AvailableStart: 06-06-2024 End: 72-56-8379Nlpcsf outpatient visit 25 minutesGiovani Hagen MD Work Phone: NOMS CI FMComment on above: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CMS/HCC) (Primary Dx); Attention deficit hyperactivity disorder (ADHD), predominantly inattentive type (CMS/HCC); Bipolar disorder, in partial remission, most recent episode manic (CMS/HCC) Start: 06-03-2024 End: 14-91-1762BkyctqMnxex M Alda MD Work Phone: NOMS CI FMComment on above:Attention deficit hyperactivity disorder (ADHD), predominantly inattentive type (CMS/HCC)Start: 05-29-2024 End: 01-24-8286Ekudgu Fredis JUSTICE Work Phone: noms BCP OBStart: 05-29-2024 End: 06-58-0356Hfittl flowsheetAyleen Partidatommy JUSTICE Work Phone: noms BCP OBStart: 05-29-2024 End: 33-10-2274Gqixog follow up visit related to original Marii Partidatommy JUSTICE Work Phone: noms BCP OBComment on above:Postop checkStart: 05-29-2024 End: 41-36-2981qbgwnkbmpyZST YESSYDee AvailableStart: 05-27-2024 End: 93-62-9972Edwrqhbyq Result EncounterGeneric External Data ProviderNOMS External Department UnsolicitedStart: 05-27-2024 End: 77-46-5454Azgheilcb Result EncounterGeneric External Data ProviderNOMS External Department UnsolicitedStart: 05-23-2024 End: 05-26-4075Enfvynxzw Result EncounterCorey Matty DO Work Phone: noms External Department UnsolicitedStart: 05-23-2024 End: 97-23-8512Ieqybuyaj Result EncounterCorey Matty DO Work Phone: noms External Department UnsolicitedStart: 05-23-2024 End: 94-84-6485Uwjztz Goyo Winn MD Work Phone: ambulatory SurgeryComment on above:Results (C diff) Start: 05-22-2024 End: 88-57-4010iyqjvbnrixPBGNB MABALAY ALDAFacility:[facility] Start: 05-22-2024 End: 91-50-6998Gckuwhjfl Result EncounterGeneric External Data ProviderNOMS External Department UnsolicitedStart: 05-22-2024 End: 34-00-2572Nccszfezs Result EncounterGeneric External Data ProviderNOMS External Department UnsolicitedStart: 05-22-2024 End: 22-30-1204Agzemaqkhi hospital visit by Daniele Winn MD Work Phone: ambulatory SurgeryComment on above:BRBPR (bright red blood per rectum) [K62.5]Start: 05-15-2024 End: 34-88-1723Qgeyfe flowsheetMarc D Dolce DPM FACFAS Work Phone: noms ASC PODStart: 05-15-2024 End: 52-14-8586Lzsowb flowsheetMarc D Dolce DPM FACFAS Work Phone: noms ASC PODStart: 05-15-2024 End: 29-32-8152Ianckb outpatient visit 25 minutesMarc D Dolce DPM FACFAS Work Phone: NOTW NMA PODComment on above:Peroneal tendon tear, right, initial encounter (Primary Dx); Right foot pain; Sprain of anterior talofibular ligament of right ankle, subsequent encounter; Osteochondritis dissecans of ankle, right; Right ankle instabilityStart: 05-15-2024 End: 56-85-9085ixyrbpbnqkQFKC D DOLCENot AvailableStart: 05-14-2024 End: 41-55-8123Sxjkmmyfen Lauren Mcconnell MD Work Phone: [facility] Comment on above:ENGLISH (nonalcoholic steatohepatitis) (Primary Dx)Start: 05-09-2024 End: 04-81-5923Iihlob outpatient visit 15 minutesGiovani Hagen MD Work Phone: noms CI FMComment on above:Cervical radiculopathy due to degenerative joint disease of spine (Primary Dx)Start: 05-09-2024 End: 76-57-0657FzgfdiMario Kelley DO Work Phone: OrthopaedicsComment on above:Right ankle instability (Primary Dx)Start: 05-08-2024 End: 90-86-5932Mgwzkc outpatient visit 25 minutesPrateek Pitts DPM Work Phone: noms SC PODComment on above:Peroneal tendon tear, right, initial encounter (Primary Dx); Sprain of anterior talofibular ligament of right ankle, subsequent encounter; Osteochondritis dissecans of ankle, right; Severe ankle sprain, right, initial encounterStart: 05-08-2024 End: 97-32-0880Oownltpyd Result EncounterGeneric External Data ProviderNOMS External Department UnsolicitedStart: 05-08-2024 End: 13-10-7069Utyenjtsk Result EncounterGeneric External Data ProviderNOMS External Department UnsolicitedStart: 05-08-2024 End: 72-85-2975IuvcwmHuafq M Alda MD Work Phone: noms CI FMComment on above:Anxiety; Bipolar disorder, in partial remission, most recent episode manic ([facility]) Start: 05-06-2024 End: 13-96-1160Ginurukxy encounterArskaiser Carty MD Work Phone: cardiologyComment on above:Patient Update (04/09/24 Echo Faxed)Start: 05-03-2024 End: 13-76-0700Giejtnaad Result EncounterSandy JUSTICE Work Phone: noms External Department UnsolicitedStart: 05-03-2024 End: 69-68-7929Lyppeswal Result EncounterSandy JUSTICE Work Phone: noms External Department UnsolicitedStart: 05-02-2024 End: 04-36-4421Knwwbe Jayleen Mercado PA-C Work Phone: GastroenterologyComment on above:Elevated LFTs (Primary Dx)Received imagesStart: 04-30-2024 End: 33-96-8455Yvekav outpatient visit 15 minutesCorey Matty DO Work Phone: NOUP BCP OBComment on above:Pre-op evaluation; H/O female dyspareunia; Pelvic pain; Other endometriosis; H/O: hysterectomyStart: 04-30-2024 End: 57-15-2960Nztxrdvbxziav examination doneCorey [employer]iz [employer] DO Work Phone: noms HealthcareStart: 04-30-2024 End: 44-54-0362Rtshia flowsheetCorey Matty DO Work Phone: NOMS BCP OBStart: 04-30-2024 End: 16-58-2226Xfemqf flowsheetCorearmando Starr DO Work Phone: NOMS BCP OBStart: 04-30-2024 End: 62-54-2836KwoednUifzb M Alda MD Work Phone: NOMS CI FMComment on above:Attention deficit hyperactivity disorder (ADHD), 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), predominantly inattentive type (CMS/HCC); Obesity (BMI 35.0-39.9 without comorbidity)Start: 04-26-2024 End: 46-74-1270Fmygbz outpatient visit 25 minutesIliana Mercado PA-C Work Phone: GastroenterologyComment on above:Elevated LFTs (Primary Dx); BRBPR (bright red blood per rectum)Start: 04-26-2024 End: 50-81-5847Tyauusyao Result EncounterGeneric External Data ProviderNOMS External Department UnsolicitedStart: 04-26-2024 End: 10-31-9489Bhkdeqbsb Result EncounterGeneric External Data ProviderNOMS External Department UnsolicitedStart: 04-26-2024 End: 01-08-5816xpaglzbqqbFJEPLG YACAPRAROFacility:[facility] HospitalStart: 04-26-2024 End: 87-00-6368[place] encounter Erika Kelley DO Work Phone: OrthopaedicsComment on above:Sprain of anterior talofibular ligament of right ankle, initial encounter (Primary Dx)Start: 04-22-2024 End: 40-95-3186Owszdrjtl encounterGiovani Hagen MD Work Phone: NOMS CI FMStart: 04-19-2024 End: 07-05-7234DmptfuTlnpi M Hemmer PA Work Phone: NOMS CI FMComment on above:Obesity (BMI 35.0-39.9 without comorbidity)Start: 04-18-2024 End: 42-04-3432dedinioeihTAKMZPZ R LACONISNot AvailableStart: 04-18-2024 End: 51-46-2608Ezcpxi outpatient visit 25 minutesJosephine Gilman MANAGER COMMUNICATION Work Phone: noMS SWS UCComment on above:Acute bronchitis with asthma (CMS/HCC) (Primary Dx)Start: 04-16-2024 End: 36-26-2894mvdhzrlglzIQSLJ M ALDANot AvailableStart: 04-09-2024 End: 52-18-1402mxqizggsdwKTIVJXQJ KOCHARFacility:[facility]Start: 04-05-2024 End: 15-31-7815dzdaplgvnpUpu ProviderCardiologyComment on above:Surgical ClearanceStart: 04-05-2024 End: 59-45-5703Jfhuuxqmf encounterSolo Carty MD Work Phone: cardiologyComment on above:Received Outside Medical Records (Cardio Clearance [employer])Start: 04-03-2024 End: 57-16-0502posvtccvumQRVCXN M SHIVELYNot AvailableStart: 04-03-2024 End: 51-16-0508Xuxeti outpatient visit 25 minutesDeena Lyn MANAGER COMMUNICATION Work Phone: NOMS CI FMComment on above:Hypokalemia (Primary Dx); Elevated blood sugar; Pre-operative clearance; Acute pain of left shoulder; Obesity (BMI 35.0-39.9 without comorbidity)Start: 04-03-2024 End: 38-70-2392Lczjkctrpsrc stateSocle Lyn MANAGER COMMUNICATION Work Phone: NOMS HealthcareStart: 04-02-2024 End: 97-46-3862Henxdkesy encounterSolo Carty MD Work Phone: cardiologyComment on above:Received Outside Medical Records ([employer])Start: 04-01-2024 End: 88-53-6876ofpjwubabrNFOEL M ALDANot AvailableStart: 04-01-2024 End: 45-00-5556Afehda outpatient visit 25 minutesGiovani Hagen MD Work Phone: NOMS CI FMComment on above:Tremors of nervous system (Primary Dx); Mild intermittent asthma without complication (CMS/HCC)Start: 03-29-2024 End: 31-74-2019nyazhuivgfVhkl Dakhil MD Work Phone: GastroenterologyComment on above:Elevated AST/ALT Start: 03-27-2024 End: 44-85-8764kyvxufvtupJbqaqj Mary Ellen Burgess PT Work Phone: noMS CI PTComment on above:Cervical radiculopathy (Primary Dx)Start: 03-27-2024 End: 54-75-4223Lgxott flowsheetZhen Burgess PT Work Phone: noMS CI PTStart: 03-27-2024 End: 21-28-7429Kdfpum flowsChristelle Burgess PT Work Phone: noMS CI PTStart: 03-26-2024 End: 33-94-6825GktvyoZijbl M Alda MD Work Phone: noMS CI FMComment on above:Attention deficit hyperactivity disorder (ADHD), predominantly inattentive type (CMS/HCC); Acute right ankle painStart: 03-25-2024 End: 89-03-8653Alekttjqg encounterGiovani Hagen MD Work Phone: NOMS CI FMStart: 03-20-2024 End: 36-40-4749Wsvtwcp encounter procedureCorey Matty DO Work Phone: NOWO HealthcareStart: 03-20-2024 End: 42-90-6812Jnpoqvrx preventive med est patient 18-39 yrsCorey Matty DO Work Phone: NOMS BCP OBComment on above:Well woman exam with routine gynecological exam; Dyspareunia in female; CystitisStart: 03-20-2024 End: 95-00-4502cxggiqpdusEGFAK FAZIONot AvailableStart: 03-20-2024 End: 48-73-5954Egglbzvuj Result EncounterGeneric External Data ProviderNOMS External Department UnsolicitedStart: 03-20-2024 End: 38-02-6369Etoqureaq Result EncounterGeneric External Data ProviderNOMS External Department UnsolicitedStart: 03-19-2024 End: 40-75-4334qdtwpymvxqYhtdypu Kelbley PTANOMS CI PTComment on above:Cervical radiculopathy (Primary Dx)Start: 03-17-2024 End: 00-78-9386Dnbbhctdq Result EncounterGeneric External Data ProviderNOMS External Department UnsolicitedStart: 03-17-2024 End: 87-35-4274Xgcozfgwi Result EncounterGeneric External Data ProviderNOMS External Department UnsolicitedStart: 03-11-2024 End: 13-45-6029pjqclxzptpDfqdixla Brink PTANOMS CI PTComment on above:Cervical radiculopathy (Primary Dx)Start: 03-11-2024 End: 22-40-9202Fcopze flowsheetMarshall Brink PTANOMS CI PTStart: 03-11-2024 End: 63-23-3969Eomtzz flowsheetMarshall Brink PTANOMS CI PTStart: 03-07-2024 End: 60-33-8573FfesmqVoibq M Alda MD Work Phone: noms CI FMComment on above:Obesity (BMI 35.0-39.9 without comorbidity)Start: 03-06-2024 End: 66-18-9915vntiuzprppAiehgjze Brink PTANOMS CI PTComment on above:Cervical radiculopathy (Primary Dx)Anxiety; Bipolar disorder, in partial remission, most recent episode manic ([facility]) Start: 03-06-2024 End: 47-79-1795Lytfblcmg Result EncounterGeneric External Data ProviderNOMS External Department UnsolicitedStart: 03-06-2024 End: 81-51-7352Wfmrvvtiw Result EncounterGeneric External Data ProviderNOMS External Department UnsolicitedStart: 02-29-2024 End: 52-50-6177yuucdvhmsuUoweaye Kelbley PTANOMS CI PTComment on above:Cervical radiculopathy (Primary Dx)Start: 02-29-2024 End: 44-99-2288Ydygdf flowsheetMelissa Kelbley PTANOMS CI PTStart: 02-29-2024 End: 69-36-1586Xvvcmd flowsheetMelissa Kelgayathriy PTANOMS CI PTStart: 02-27-2024 End: 37-51-6496anhahhjxsjVihqzqt Kelgayathriy PTANOMS CI PTComment on above:Cervical radiculopathy (Primary Dx)Start: 02-27-2024 End: 01-54-3647Rwjiov flowsheetMelissa Kelgayathriy PTANOMS CI PTStart: 02-27-2024 End: 95-22-4342Saepxf flowsheetMelissa Kelgayathriy PTANOMS CI PTStart: 02-20-2024 End: 77-02-0222LifnpwWgsvv Dukles LPNNOMS CI FMComment on above:Attention deficit hyperactivity disorder (ADHD), predominantly inattentive type (CMS/HCC) Start: 02-14-2024 End: 96-49-6616afkvdjpegnHqnodont Brink PTANOMS CI PTComment on above:Cervical radiculopathy (Primary Dx)Start: 02-14-2024 End: 16-25-6834Ogclso flowsheetMarshall Brink PTANOMS CI PTStart: 02-14-2024 End: 62-83-6688Kiuqae flowsheetMarshall Brink PTANOMS CI PTStart: 02-12-2024 End: 09-74-5817bfracngaxeKxkium T Blackston PT Work Phone: noMS CI PTComment on above:Cervical radiculopathy (Primary Dx)Start: 02-12-2024 End: 78-84-7555Wtityx David Burgess PT Work Phone: NOMS CI PTStart: 02-12-2024 End: 05-10-5108Semtdj David Burgess PT Work Phone: noMS CI PTStart: 02-07-2024 End: 99-74-4149cfixqayoqoGawllabb Brink PTANOMS CI PTComment on above:Cervical radiculopathy (Primary Dx)Start: 02-07-2024 End: 22-56-1509Qcvghm flowsheetMarshall Brink PTANOMS CI PTStart: 02-07-2024 End: 52-80-9917Hkprcw Jermaine Triana PTANOMS CI PTStart: 02-06-2024 End: 92-35-2363Qzidfq outpatient visit 25 minutesGiovani Hagen MD Work Phone: NOMS CI FMComment on above:Localized edema (Primary Dx); Obesity (BMI 35.0-39.9 without comorbidity); Injury of right ankle, subsequent encounter; Anxiety; Bipolar disorder, in partial remission, most recent episode manic ([facility]) Start: 02-05-2024 End: 24-31-7961oayzqweruuRpbxiy T Blackston PT Work Phone: NOMS CI PTComment on above:Cervical radiculopathy (Primary Dx)Start: 02-05-2024 End: 11-04-8965Asckvg David Burgess PT Work Phone: NOMS CI PTStart: 02-05-2024 End: 36-59-1305Tcmxrh flowsChristelle Burgess PT Work Phone: noms CI PTStart: 01-29-2024 End: 53-30-5735Ycmzxgnsv encounterZhen Burgess PT Work Phone: noMS CI PTComment on above:PT Initial Eval (Tried to contact to schedule PT Eval for cervical radiculopathy; but had to lm requesting call back.); Call Back (She contacted and we scheduled PT Eval 02/04 w/ Zhen Burgess, PT.)Start: 01-22-2024 End: 77-85-8855Incllx outpatient visit 15 minutesDarwin Starr DO Work Phone: NOZK BCP OBComment on above:Dyspareunia in female; Urethral painStart: 01-17-2024 End: 61-34-5581Dyhsiyccl Result EncounterGiovani Hagen MD Work Phone: NOYA External Department UnsolicitedStart: 01-17-2024 End: 40-82-5664Dvqoawrot Result EncounterGiovani Hagen MD Work Phone: NOMS External Department UnsolicitedStart: 01-09-2024 End: 18-33-2307Kijuih outpatient visit 25 minutesGiovani Hagen MD Work Phone: noMS CI FMComment on above:Cervical radiculopathy (Primary Dx); Attention deficit hyperactivity disorder (ADHD), predominantly inattentive type (CMS/HCC); Anxiety; Bipolar disorder, in partial remission, most recent episode manic (CMS/HCC) Start: 01-08-2024 End: 82-96-4861Vgkpurzih encounterGiovani Hagen MD Work Phone: noMS CI FMComment on above:Med RefillStart: 12-28-2023 End: 52-91-3530Dnzsbuv encounter procedureJEAMANDA DEJESUS [facility] start: 12-28-2023 End: 77-73-7721antbfpqjfbVcq ProviderCardiologyComment on above:ZioStart: 12-26-2023 End: 98-78-2072Itxzfu outpatient visit 25 minutesGiovani Hagen MD Work Phone: noMS CI FMComment on above:Cervical radiculopathy (Primary Dx); Acute nonintractable headache, unspecified headache type; Nausea and vomiting, unspecified vomiting typeStart: 12-19-2023 End: 06-28-9204Mklqtaldc Result EncounterGeneric External Data ProviderNOMS External Department UnsolicitedStart: 12-19-2023 End: 20-97-6783Tsvamkmfo Result EncounterGeneric External Data ProviderNOMS External Department UnsolicitedStart: 12-19-2023 End: 98-15-7747Cznczx Skip Carty MD Work Phone: cardiologyComment on above:Syncope and collapse (Primary Dx)Event (ZIO PATCH)Syncope, unspecified syncope type (Primary Dx) Start: 12-18-2023 End: 34-52-5180Eupfmavmo encounterTracey Jed RT. RNOMS SWS PODIATRYComment on above:Lab resultsStart: 12-13-2023 End: 64-91-7591Wotzyzmmh Result EncounterGeneric External Data ProviderNOMS External Department UnsolicitedStart: 12-13-2023 End: 29-94-0698Nhjbensgj Result EncounterGeneric External Data ProviderNOMS External Department UnsolicitedStart: 12-04-2023 End: 68-44-7660Iwomzue encounter statusDamoncarolynarmando Burgess PT Work Phone: NOMS HealthcareStart: 11-20-2023 End: 85-97-4458Fwgdhjmjq Result EncounterGeneric External Data ProviderNOMS External Department UnsolicitedStart: 11-20-2023 End: 04-32-4975Xjxxutqbi Result EncounterGeneric External Data ProviderNOMS External Department UnsolicitedStart: 40-95-8714Ccsugp Skip Carty MD Work Phone: cardiologyComment on above:Gastroparesis (Primary Dx) Patient Update (Referral & Records are in Care Everywhere)Start: 03-22-2023 End: 82-64-7631Ryiqbxborw and management of inpatientJEFFREY P BLOODTrinity Health System West Campustart: 64-33-6164cjaipoblxkXfps [place] FRIEDMAN Work Phone: GastroenterologyComment on above:Thoughts and input Start: 13-64-0208Janbzuvbg encounterCharlette Campuzano MD Work Phone: FV Provider AdultStart: 50-92-7997Minzjkdtx encounter Maria Dolores Corey DO Work Phone: GastroenterologyComment on above:Medication Preauthorization ([place] for Ibsrela)Start: 11-02-2022 End: 00-68-7561Zyrdlw Isabella Corey DO Work Phone: GastroenterologyComment on above:Irritable bowel syndrome with constipation (Primary Dx)GastroparesisGastroparesis (Primary Dx) Start: 10-26-2022 End: 34-26-8546mzbfxhqetwOM Giovani Hagen Work Phone: [facility] Work Phone: Start: 10-26-2022 End: 36-75-8989Ytjimon encounter procedureMD Giovani Hagen Work Phone: [facility]-Ultrasound [facility] [place] Work Phone: Start: 31-73-6353hqndfgcffkAttewfe S Corey DO Work Phone: GastroenterologyStart: 12-28-4364Pucsfgyqq encounter Maria Dolores S Corey DO Work Phone: GastroenterologyComment on above:Medication Preauthorization ([employer]otegrity)ResultsStart: 10-17-2022 End: 58-39-3184Xihqiya encounter procedureElectrogastrogram [facility] Work Phone: GastroenterologyComment on above:Gastroparesis (Primary Dx)Start: 09-12-2022 End: 34-60-4993Dhunzytpsu hospital visit by Mariajose Jha [facility] Work Phone: [facility] Radiology MolecularComment on above: Nausea [R11.0]Start: 08-31-2022 End: 91-65-2817Xoxbtzyiwb hospital visit by Daniele Winn MD Work Phone: ambulatory SurgeryComment on above:PUD (peptic ulcer disease) [K27.9]Start: 68-94-5257Riprbceuu encounterNurse [facility] Work Phone: GastroenterologyComment on above:AppointmentStart: 07-08-2022 End: 99-76-4565sctepxlxlrGDJose ORTIZ .Facility:Z5Bydmd: 07-06-2022 End: 19-20-6509grdkcjfaviFK PATRICK WATERS .Facility:C6Lpjwl: 07-05-2022 End: 18-61-2474Mmhorxg encounter procedureMadhuri ORTIZ [facility] Start: 81-85-5694Jzvmkq Goyo Winn MD Work Phone: GastroenterologyStart: 06-30-2022 End: 25-63-1518Xlzivjmqih hospital visit by Daniele Winn MD Work Phone: ambulatory SurgeryComment on above:Bilious vomiting with nausea [R11.14]Start: 06-29-2022 End: 32-51-8628oyktpxseioGU MADHURI ORTIZ .Facility:H5Jraqo: 06-29-2022 End: 83-54-7845Bbh Drop offPatrick Aroldo ORTIZ [facility] Start: 41-48-0167ifnrgxtewrQovq Dakhil MD Work Phone: GastroenterologyComment on above:EGD instructions Start: 14-04-4541H-mail encounter from Celso Winn MD Work Phone: [facility] MCStart: 65-40-8729vqddqovutyFaw ProviderGastroenterologyComment on above:Question regarding US ABD RT UPPER QUADRANTStart: 06-15-2022 End: 48-47-5383Owlfzhedhc hospital visit by [facility] Work Phone: [facility] Radiology UltrasoundComment on above: Liver lesion [K76.9]Start: 92-35-4595Xuembz Goyo Winn MD Work Phone: ambulatory SurgeryComment on above:Liver lesion (Primary Dx)ResultsStart: 23-42-2669dvutyliumjUjdlj [employer] RT(R)Radiology Ct ScanComment on above:Radiology CTStart: 55-63-8796Ejmftrs encounter procedure Diamond [employer]craft RT(R)[facility]Start: 06-10-2022 End: 22-15-3967Ksloacoxcz hospital visit by physicianEmma Holm [facility] CcRadiology Ct ScanComment on above:Bilious vomiting with nausea [R11.14]Start: 05-27-2022 End: 66-01-3573Vxsmvwhoai hospital visit by physicianArron [facility] Work Phone: [facility] Radiology GeneralComment on above:SOB (shortness of breath) [R06.02]Start: 05-27-2022 End: 94-40-1196Vspzyfj encounter procedureCarol Winn MD Work Phone: GastroenterologyComment on above:Fatty liver (Primary Dx); Bilious vomiting with nausea; Right sided abdominal pain; Nausea; History of diverticulitis; SOB (shortness of breath)Start: 05-13-2022 End: 66-19-4603enkwedyrttWS Giovani Lisbeth Hieu Work Phone: [facility] Work Phone: Start: 05-13-2022 End: 36-68-0736Qoovuzo encounter procedure Giovani Maiera Work Phone: [facility]-Digestive Health Work Phone: Start: 05-03-2022 End: 79-36-3420ekrhldptjiKQJT [employer] Trade DeskPeter Bent Brigham HospitalinEarth [employer] Other Start: 83-52-6774Mkxlhj consultation new/estab patient 60 minImad AsaadFPG GastroenterologyStart: 04-20-2022 End: 99-69-9576xlvbujukwaJS AURORA IRBY .Facility:X9Dtzfi: 04-06-2022 End: 67-97-4999gasdabrqdnKX GIOVANI ALDAFacility:A7Adenf: 12-21-2021 End: 27-89-6131gvvbodzqptDN GREGORY KARASIK .Facility:K0Cizho: 12-10-2021 End: 49-17-5127Ysafyehdfx hospital visit by physician On License Of [facility] UltrasoundComment on above:Elevated LFTs [R79.89]Start: 10-27-2021 End: 73-36-9072zkwvomvshcNL GREGORY KARASIK .Facility:Q6Ksmkw: 10-20-2021 End: 24-39-0499pcnjaznmeeZJT YESSY .Facility:S5Gqehx: 10-19-2021 End: 77-76-9283omndncnzxhYF AURORA IRBY .Facility:K8Qpblz: 09-06-2021 End: 42-25-1294zrzcbontpyLR RUGEN ALDAFacility:F1Vhuxf: 08-27-2021 End: 63-18-9664xutogacjgsXZ RUGEN ALDAFacility:D8Ntxxh: 08-14-2021 End: 50-45-8704thoqhcyyueOC RUGEN ALDAFacility:N7Cypao: 11-06-2018 End: 44-73-2954Mrdstsm encounter procedureAMANDA [facility] Procedures DateProcedureProcedure DetailPerforming ClinicianStart: 40-26-9699Wxlrp dip stick/tablet rgnt non-auto w/o micrscpAmy Yessy JUSTICE Work Phone: Start: 72-81-2892YLD LIPID PROFILE (FASTING)Generic External Data ProviderStart: 08-94-3021RDQ CMP (CMP) (FOR REMOTE [facility] USE)Generic External Data ProviderStart: 60-40-8422AKN CBC WITH AUTO Daniel Hagen MD Work Phone: Start: 97-95-1959Mbosi foot complete minimum 3 views Milton Gonzalez Fraire DPM FACFAS Work Phone: Start: 93-97-8624NBD HEMOGLOBIN B7DHwwmtSandy JUSTICE Work Phone: Start: 98-95-3906Obpdiehvvg exam abdomen 1 view Mario Harper APRN.GAME PROGRAMER Work Phone: Start: 38-23-0341OK ABDOMEN 1V SUPINEGeneric External Data ProviderStart: 68-97-6619JXE HEAD/BRAIN WO/W Tiannactristen Ochoa MANAGER COMMUNICATION Work Phone: Start: 80-70-4448YULON [place] ANORECTAL MANOMETRY Mario Harper APRN.GAME PROGRAMER Work Phone: Start: 92-88-1307Fh pelvic nonobstetric real-time image completeJavy Boudreaux MD Work Phone: Start: 41-83-6673Jhkhn ankle complete minimum 3 views Milton Fraire DPM FACFAS Work Phone: Start: 25-06-2557QUOKRDQYQ VAGINITIS (HTRX)Darwin Matty DO Work Phone: Start: 27-08-7905LCS HEMOGLOBIN O1VQudvs Matty DO Work Phone: Start: 26-67-5867APJ CBC WITH AUTO DIFFGeneric External Data ProviderStart: 08-03-5095Dom agent det nucleic acid clostridium amp probeNoma Rome FRIEDMAN Work Phone: start: 92-19-9333MsxswkksdgqHlpyasv External Data ProviderStart: 58-10-0903Lhnufrnfrcv flx dx w/collj spec when pfrmdLauren Yacapraro PA-C Work Phone: start: 70-77-9060Bdnxg ankle complete minimum 3 views Milton Fraire DPM FACFAS Work Phone: Start: 21-08-2826HYO CBC WITH AUTO DIFFCorey Matty DO Work Phone: Start: 05-17-3089Ydl spinal canal cervical w/o contrast Julia JUSTICE Work Phone: Start: 05-02-2024 End: 57-51-8064Qfdrz elastography w/o imag w/i&rLauren Yacapraro PA-C Work Phone: start: 42-65-6925RDS CBC W AUTO DIFF BLDGeneric External Data ProviderStart: 15-70-9303FMK,APTIMA HPV,AGE GDLNCorey VibeDeck Work Phone: Start: 09-18-5380Nwh any jt lower extrem w/o contrast matrlGeneric External Data ProviderStart: 21-56-4166UQ ANKLE RT MIN 3VGeneric External Data ProviderStart: 90-53-6459UB CERVICAL SPINE 2-3VRolamide Hagen MD Work Phone: Start: 30-05-0251Yvh routine ecg w/least 12 lds w/i&r Generic External Data ProviderStart: 47-30-4170KJM CBC WITH AUTO DIFFEugene R Kubitz DPM Work Phone: start: 97-28-5783ST ABDOMEN 1VGeneric External Data ProviderStart: 24-48-4286Kxbzlyu of cholecystectomyHistory of cholecystectomy Zhen Burgess PT Work Phone: Start: 97-39-6516Nfxedepgsvgthcl of liverMD Giovani Hagen Work Phone: Start: 09-23-2022H/O: hysterectomyHistory of hysterectomyZhen Burgess PT Work Phone: Start: 23-04-8352Flqmvgm emptying imaging studyCarol Winn MD Work Phone: start: 57-85-2709Hxbkm iv surg pathology gross&microscopic examCarol Winn MD Work Phone: start: 55-49-0120Bbiwyywrjtkouevpswwahwvths transoral Gil Winn MD Work Phone: start: 58-93-9859Pwvcz iv surg pathology gross&microscopic examCarlo Winn MD Work Phone: start: 87-00-6865Rcyszuzunisnrzijrutmuwwhvi transoral diagnosticCarol Winn MD Work Phone: start: 23-81-2225Ql abdominal real time w/image limitedCarol Winn MD Work Phone: start: 44-20-0630Om abdomen & pelvis w/o contrast materialCarol Winn MD Work Phone: start: 29-40-1376Lwmrmfmzrt exam chest 2 viewsCarol Winn MD Work Phone: start: 31-91-0181Bdicyzulfj elastography of liverMD Giovani Hagen Work Phone: Start: 94-43-5198Vh abdominal real time w/image Cande Winn MD Work Phone: start: 75-02-7623Nskwvxzgmmpgvtlir with dilation of urethral strictureMadhuri ORTIZ Start: 97-12-5060EPQMYSEYE REPORTAMANDA SPRINGERStart: 43-95-2226Agb spinal canal lumbar w/o contrast materialAMANDA SPRINGERStart: 63-23-5812Cifhn Medial Branch Block 1Patricannabel ORTIZ Comment on above:Bilateral T5-T8 -10% relief x 2 hours. Start: 39-14-3269Vfkaqpsks of sacroiliac joint using fluoroscopic guidance Madhuri ORTIZ Comfkfl on above:right 40% reliefStart: 07-02-2018 Injection of sacroiliac joint using fluoroscopic guidanceMadhuri ORTIZ Comment on above:right 50% relief to presentCesarean sectionPaebony ORTIZ CholecystectomyJENNIFER OLEG H/O: hysterectomyH/O: hysterectomyCorey Matty DO Work Phone: H/O: hysterectomyH/O: hysterectomyAyleen JUSTICE Work Phone: HysterectomyMadhuri ORTIZ Plan of Treatment DateCare ActivityDetailAuthorStart: 94-96-7792UReL/Tdap/Td Vaccines (7 - Td or Tdap)DTaP/Tdap/Td Vaccines (7 - Td or Tdap)[facility]: 11-06-5215Obdhz microalbumin profileDTaP,Tdap,Td Vaccine (7 - Td or Tdap)[facility] Hospitaltart: 90-25-1322Pzrkmegwot A1c measurementDiabetes: Hemoglobin B3LDOQQ[facility] Start: 03-31-2025 End: 27-22-6323Pvwetkw encounter bekcoouhd12/08/2025 4:50 PM EST Office Visit [facility] [address] [place] [address] Milton Fraire, DPM FACFAS [address] [place] [address] NOMS NMA PODStart: 03-18-2025 End: 54-92-3593Hffmjsh encounter routehkyu28/25/2025 9:00 AM EST Office Visit [facility] [place] [facility] [address] [facility] [address] [place] [address] Giovani Hagen MD [address] [place] [address] [place] [address] NOMS [place] [facility] MedinceStart: 03-14-2025 End: 98-30-7707Vojillp encounter eagdvvstn23/21/2025 11:40 AM EST Office Visit [facility] [place] [facility] [address] [facility] [address] [place] [address] Jatin Parisi MD [address] [facility] [address] [place] [address] NOMRodney Matt NeurologyStart: 03-03-2025 End: 61-02-4376Xofysdcs SupportNOMS NMA PODComment on above:ArrivedStart: 02-28-2025 End: 66-63-0592Oivyvjr encounter /07/2025 9:00 AM EST Office Visit [facility] [facility] [address] [facility] [address] [place] [address] Jatin Parisi MD [address] [facility] [address] [place] [address] NOMRodney Matt NeurologyStart: 02-27-2025 End: 97-87-8320Lisiuje encounter bbsvtowpb84/06/2025 3:00 PM EST Procedure Visit [facility] [address] [facility] [address] Ayleen Krishnamurthy PA [address] [facility] [place] [address] NOMS [facility] OBGYNStart: 02-12-2025 End: 54-44-5908Tpxzvkg encounter procedureNOMS NMA PODComment on above:Arrived Start: 01-20-2025 End: 77-45-9844Qzzpgsdk Daihrjt8901/20/2025 4:00 PM EDT Clinical Support [facility] [place] [facility] [address] [facility] [address] [place] [address] NOMS [place] Scott MedinceStart: 01-15-2025 End: 37-87-5863Udcsqrgc Nuntuwd4601/15/2025 4:00 PM EDT Clinical Support [facility] [address] [facility] [address] Milton Fraire, DPM FACFAS [address] [facility] [place] [address] NOMS NMA PODStart: 01-14-2025 End: 50-49-2765Ecabsypkfcaa / ancillary services tlqekeopms25/23/2025 6:00 PM EDT Ancillary Procedure [facility] [place] [facility] [address] [facility] [facility] [place] [address] NOM[facility] [place] [facility] ImagingStart: 12-30-2024 End: 39-27-8332Uphlhqwi SupportNOMS NMA PODComment on above:ArrivedStart: 12-26-2024 End: 87-33-6079LG Lumbar spine WO contrastMR lumbar spine wo contrast Imaging Routine Lumbar radiculopathy Expected: 12/26/2024, Expires: 12/26/2025[facility] Work Phone: Comment on above:Expected: 12/26/2024, Expires: 12/26/2025Start: 12-26-2024 End: 97-55-4295Zxwhsty encounter procedureNOMS [facility] NEURStart: 17-11-3121AJDQO-19 Vaccine ( season)COVID-19 Vaccine ( season)NOMS HealthcareStart: 47-06-0882Ekcohamqq vaccinationNOMS HealthcareComment on above: Postponed from 12/24/2023 (Other Medical Reasons)Start: 12-16-2024 End: 07-77-5947Cajjvcc encounter tktermkms70/25/2025 9:45 AM EDT Office Visit [facility] [place] [facility] [address] [facility] 110 [place] [address] Giovani Hagen MD [address] [facility] 110 [place] [address] NOM [place] [facility] MedinceStart: 12-13-2024 End: 67-46-1795Iyutgcf encounter migvpbzcb29/22/2025 9:40 AM EDT Office Visit [facility] [address] [place] [address] Milton Fraire, DPM FACFAS [address] [facility] [place] [address] NOMS NMA PODStart: 12-12-2024 End: 04-55-8760Jmlifmm encounter xvylizixe36/21/2025 10:30 AM EDT Office Visit [facility] [place] [facility] [address] [facility] [address] [place] [address] Sandy Hammond PA [address] [facility] [facility] [address] [place] [address] Elevated liver enzymes (Primary Dx); Nephrocalcinosis; Bilateral nephrolithiasis; Right ovarian cyst; HypokalemiaNOMS [place] [facility] HospitalnceComment on above:Elevated liver enzymes (Primary Dx); Nephrocalcinosis; Bilateral nephrolithiasis; Right ovarian cyst; HypokalemiaStart: 11-18-2024 End: 83-62-0770Gwrapgw encounter bvnmlandi32/28/2025 12:00 PM EDT Procedure Visit [facility] [address] [place] [address] [place] [address] NOMS SWS NEURStart: 11-04-2024 End: 12-35-5747Aajgjzo encounter vaclsavun85/14/2025 2:00 PM EDT Office Visit Gynecology [address] [place] [address] Emma Romero, FLIGHT ATTENDANT INFLIGHT SERVICES.GAME PROGRAMER [address] [place] [address] Other specified dyspareuniaGynecologyComment on above:Other specified dyspareuniaStart: 10-29-2024 End: 67-43-3250Iwaujua encounter hefkwwmcm97/08/2025 10:00 AM EDT Procedure Visit [facility] [address] [place] [address] [facility]O 210Start: 10-15-2024 End: 08-41-3181Nvvihzcts to same day surgery oldhme0510/15/2024 10:30 AM EDT Procedure Colorectal Surgery [address] [place], [place] [address] Mario Harper, FLIGHT ATTENDANT INFLIGHT SERVICES.GAME PROGRAMER [address] [place] [address] manometryColorectal SurgeryComment on above:manometryStart: 10-10-2024 End: 65-95-4223WVW 1 ExtremeityEMG 1 [facility] Neurology Routine Numbness and tingling Expected: 10/10/2024 (Approximate), Expires: 10/10/2025[facility] Comment on above:Expected: 10/10/2024 (Approximate), Expires: 10/10/2025Start: 10-10-2024 End: 10-97-7760KF Brain WO and W contrast IVMR brain w and wo contrast routine Imaging Routine Numbness and tingling Atypical migraine Expected: 10/10/2024 (Approximate), Expires: 06/19/[address] [place] [address] Work Phone: Comment on above:Expected: 10/10/2024 (Approximate), Expires: 10/10/2025Start: 10-10-2024 End: 94-76-6397Wqrolcc encounter procedureNOMS [facility] NEURO 210Comment on above: ArrivedStart: 09-25-2024 End: 21-37-8909Rzzvnhp encounter jyesgafnm43/04/2025 10:30 AM EDT Office Visit [facility] CI [facility] [address] [facility] [address] [place] [address] Deena Lyn NP [address] [place] [address] [place] [address] ArrivedNOMS CI FMComment on above:ArrivedStart: 09-17-2024 End: 46-72-5433Cndhhxl encounter procedureNOMS CI FMComment on above:Arrived Start: 09-04-2024 End: 72-42-9008Oklklsk encounter htdsayxfq52/14/2025 4:40 PM EDT Office Visit [facility] [address] [place] [address] Milton Fraire, DPM FACFAS [address] [place] [address] NOMS NMA PODStart: 09-02-2024 End: 88-83-3926Ortterp encounter khelcleaw39/12/2025 3:00 PM EDT Office Visit [facility] [address] [facility] [address] [place] [address] Giovani Hagen MD [address] [facility] [address] [place] [address] NOMS CI FMStart: 08-21-2024 End: 46-22-3918Ptntacs encounter kmowwrnny51/30/2025 4:00 PM EDT Office Visit [facility] [address] [place] [address] Milton Fraire, DPM FACFAS [address] [place] [address] NOMS NMA PODStart: 83-33-5829UkncavdbwGeorgetown [facility]al [facility] Start: 05-78-2444Jcvegwyy admissionUniversity Hospitals Parma Medical Centertart: 76-51-1326CdibvyixbUniversity Hospitals Parma Medical Centertart: 08-14-2024 End: 73-89-9635Fwpsksa encounter ekogynvii41/23/2025 4:10 PM EDT Office Visit [facility] [address] [place] [address] Milton Fraire, DPM FACFAS [address] [place] [address] NOMS NMA PODStart: 08-13-2024 End: 45-83-6656Xkzcaaq encounter usqqtvwiz29/22/2025 2:30 PM EDT Office Visit Cardiology [address] [phone] Solo Carty MD [address] [place] [address] Dx: Syncope, unspecified syncope type [R55]CardiologyComment on above:Dx: Syncope, unspecified syncope type [R55]Start: 08-13-2024 End: 42-80-6920Nslvtdp encounter eklocfcmn60/22/2025 12:30 PM EDT Office Visit Cardiology [address] [place] [address] Ma: Syncope, unspecified syncope type [R55]CardiologyComment on above:Dx: Syncope, unspecified syncope type [R55]Start: 08-13-2024 End: 81-34-9055Cceujuc encounter xssfhyvtc89/22/2025 10:30 AM EDT Office Visit Cardiology [address] [address] Af: Syncope, unspecified syncope type [R55]CardiologyComment on above:Dx: Syncope, unspecified syncope type [R55]Start: 08-01-2024 End: 08-74-6746Kwcpcgn encounter tyoeekyxs65/10/2025 2:30 PM EDT Office Visit [facility] [address] [facility] [address] [place] [address] Giovani Hagen MD [address] [facility] [address] [place] [address] NOMS CI FMStart: 07-26-2024 End: 11-75-9532jmbngdghje02/04/2025 8:40 AM EDT [facility] Gastroenterology [address] [place] [address] [place] [address] [place] [address] Elevated LFT, per PtGastroenterologyComment on above:Elevated LFT, per PtStart: 07-24-2024 End: 46-36-5248Gvfhtoq encounter prvemhlde15/02/2025 3:50 PM EDT Office Visit [facility] [address] [place] [address] Milton Fraire, DPM FACFAS [address] [place] [address] NOMS NMA PODStart: 07-04-2024 End: 06-64-8349Etgaqkq encounter njrazrgrm44/13/2025 3:30 PM EDT Office Visit [facility] CI [facility] [address] [facility] [address] [place] [address] Giovani Hagen MD [address] [facility] [address] [place] [address] NOMS CI FMStart: 07-03-2024 End: 93-60-7835Akfuqzb encounter ndawfavth40/12/2025 2:20 PM EDT Office Visit [facility] [address] [place] [address] Milton Fraire, DPM FACFAS [address] [place] [address] NOMS NMA PODStart: 30-86-4509Bcbnjobgbr A1c measurement Diabetes: Hemoglobin A6XKVJB HealthcareStart: 06-26-2024 End: 49-24-2895Xkflmgz encounter ieqbohpsg17/05/2025 2:50 PM EST Office Visit [facility] [address] [facility] [place] [address] Milton Fraire, DPM FACFAS [address] [place] [address] NOMS NMA PODStart: 06-25-2024 End: 25-84-3311Arjtksr encounter procedureNOMS BCP OBComment on above:Arrived Start: 06-24-2024 End: 82-14-4711Yzgnyeb encounter cuegftdsb83/03/2025 10:40 AM EST Office Visit [facility] [address] [facility] [place] [address] DoMilton de luna, DPM FACFAS [address] [place] [address] NOMS NMA PODStart: 06-19-2024 End: 00-12-6013Jlmqdaf encounter procedureNOMS SC PODComment on above:Arrived Start: 06-17-2024 End: 91-73-8437Wbpardf encounter ossnbuwnf39/24/2025 10:30 AM EST Office Visit Orthopaedics [address] [place] [address] Naren Verdugo PA-C [address] [place] [address] 1st post op Rt ankle arthroscopy/internal brace 06/04/24 OrthopaedicsComment on above:1st post op Rt ankle arthroscopy/internal brace 06/04/24Start: 06-12-2024 End: 58-51-2915sciioisotk10/19/2025 1:45 PM EST Results Only Cardiology [address] [place] [address] Dx: Syncope, unspecified syncope type [R55]CardiologyComment on above:Dx: Syncope, unspecified syncope type [R55] Start: 06-12-2024 End: 87-70-5617Wolgvyt encounter procedureCardiologyComment on above:Dx: Syncope, unspecified syncope type [R55]Start: 06-10-2024 End: 36-04-6504Xmruknn encounter ojniezoml95/17/2025 9:40 AM EST Appointment [facility] [address] [place] [address] Rosario Mcconnell I, MD [address] [place] [address] CRIWY RESEARCH - CORCEPTNortNorthwest Medical Center [facility]oscopy MorganComment on above:CRIWY RESEARCH - CORCEPTStart: 06-04-2024 End: 77-50-7952Phiuslq encounter mltdepxur65/11/2025 9:40 AM EST Office Visit [facility] [address] [place] [address] Milton Fraire, DPM FACFAS [address] [facility] [place] [address] NOMS NMA PODStart: 06-04-2024 End: 69-95-4882Wwxbvlcvs to same day surgery rdepin9206/04/2024 7:30 AM EST - 06/04/2024 10:10 AM EST Surgery [facility] [address] [place] [address] Lydia Kelley DO [address] [address] REPAIR ANKLE LIGAMENT SECONDARY DISRUPTED, COLLATERALWilson Health SurgeryComment on above:REPAIR ANKLE LIGAMENT SECONDARY DISRUPTED, COLLATERALStart: 06-04-2024 End: 45-66-4349Vhjdge secondary disrupted ligament ankle coltrlREPAIR ANKLE LIGAMENT SECONDARY DISRUPTED, COLLATERAL Right ankle instability 06/04/2024 7:30 AM ESTME ORStart: 62-16-3195Lzvqqjjjcc hospital visit by mbqeowsyx66/11/2025 7:30 AM EST Hospital Encounter [facility] [address] [place] [address] Lydia Kelley, DO [address] [facility] HOS[facility]ITAL[facility]tagrac[facility] [place], [place] [address] 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][facility] SurgeryComment on above: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]Start: 05-31-2024 End: 15-03-4428oigwpiavnt79/07/2025 1:15 PM EST [facility] [address] [address] Lydia Kelley, DO [address] [place] [address] 4 week f/u, right ankleOrthopaedicsComment on above:4 week f/u, right ankleStart: 05-31-2024 End: 88-07-6196Sbgifvj encounter nxkecizfe98/07/2025 9:45 AM EST Office Visit Orthopaedics [address] [place] [address] Lydia Kelley, DO [address] [place], [place] [address] 4 week f/u, right ankleOrthopaedicsComment on above:4 week f/u, right ankleStart: 05-29-2024 End: 02-38-9212Orhmlsh encounter procedureNOMS BCP OBComment on above:Arrived Start: 05-22-2024 End: 52-69-5543Vjkatom encounter etvmgqriq55/29/2025 2:30 PM EST Appointment Ambulatory Surgery [address] [place] [address] [place] [address] [place] [address] BRBPR (bright red blood per rectum) [K62.5]Ambulatory Surgery Comment on above:BRBPR (bright red blood per rectum) [K62.5]Start: 05-15-2024 End: 33-59-8480Rxexdsv encounter procedureNOMS NMA PODComment on above:Arrived Start: 05-08-2024 End: 38-39-5449Azbnvrn encounter gcygqaeip29/15/2025 3:10 PM EST Office Visit [facility] P[facility] [address] [place] [address] Prateek Pitts DPM [address] [address] NOMS SC PODStart: 05-05-2024 End: 91-62-4980Kltyzojpzz bjtyupcyagvu81/12/2025 11:59 PM EST Anesthesia Event Ambulatory Surgery [address] [place], [place] [address] [place] [address] hSarla Bonds APRN.WEBSPHERE COMMERCE CONSULTANT [address] [place], [place] [address]Ppigluejxl SurgeryStart: 05-02-2024 End: 85-52-5959bbprzxknrs86/09/2025 12:00 PM EST Procedure Gastroenterology [address] [place] [address] dzgkfibidPjmkflgrjddscncwQmqvtwj on above:fibroscanStart: 05-01-2024 End: 25-57-1579Vovwhjf encounter ifarviirw85/08/2025 4:30 PM EST Office Visit [facility] [address] [place] [address] Prateek Pitts DPM [address] [address] NOMS SC PODStart: 04-30-2024 End: 48-21-0304Gwpdobo encounter procedureNOMS BCP OBComment on above:Arrived Start: 04-26-2024 End: 86-51-3763Jeatepo encounter qyqigjnuv50/03/2025 3:05 PM EST Office Visit Gastroenterology [address] [place] [address] Iliana Mercado PA-C [address] [place] [address] Elevated LFT, per PtGastroenterologyComment on above:Elevated LFT, per PtStart: 04-26-2024 End: 55-42-0760Jpwcf 1 antitrypsin [Mass/volume] in Serum or [facility] FoundationComment on above:Expected: 04/26/2024, Expires: 07/26/2024Start: 04-26-2024 End: 63-14-1779Uejvk-1-Fetoprotein [Mass/volume] in Serum or [facility] Work Phone: comment on above:Expected: 04/26/2024, Expires: 07/26/2024Start: 04-26-2024 End: 17-61-9321QIW BY IFA WITH [facility] HospitalComment on above:Expected: 04/26/2024, Expires: 07/26/2024Start: 04-26-2024 End: 63-51-0914Vwbhqmljcezdz [Mass/volume] in Serum or [facility] Comment on above:Expected: 04/26/2024, Expires: 07/26/2024Start: 04-26-2024 End: 79-33-6614Itzhmaudn A virus IgM Ab [Presence] in [facility] Comment on above:Expected: 04/26/2024, Expires: 07/26/2024Start: 04-26-2024 End: 69-38-7249Xprrikedd B virus core IgM Ab [Presence] in [facility] Comment on above:Expected: 04/26/2024, Expires: 07/26/2024Start: 04-26-2024 End: 18-07-0561Cavesqqei B virus surface Ag [Presence] in [facility] Comment on above:Expected: 04/26/2024, Expires: 07/26/2024Start: 04-26-2024 End: 68-48-3722Jfquzytxi C virus Ab [Presence] in [facility] CenterComment on above:Expected: 04/26/2024, Expires: 07/26/2024Start: 04-26-2024 End: 69-88-8327Reonrskdlfme Ab [Presence] in Serum by Immunofluorescence [facility] HospitalComment on above:Expected: 04/26/2024, Expires: 07/26/2024Start: 04-26-2024 End: 04-85-8250Dkvltg muscle Ab [Presence] in SerumCleveland Clinic Euclid HospitalComascension [facility] on above:Expected: 04/26/2024, Expires: 07/26/2024Start: 04-03-2024 End: 08-90-4175Lkhwauatgt A1c/Hemoglobin.total in BloodHemoglobin A1c Lab Routine Elevated blood sugar Expected: 04/03/2024 (Approximate), Expires: 04/03/2025[facility] HealthcareComment on above:Expected: 04/03/2024 (Approximate), Expires: 04/03/2025Start: 04-03-2024 End: 36-81-2656DI Shoulder - left WO contrastMR shoulder left wo IV contrast Imaging Routine Acute pain of left shoulder Expected: 04/03/2024, Expires: 04/03/2025[facility] HealthcareComment on above:Expected: 04/03/2024, Expires: 04/03/2025Start: 04-03-2024 End: 69-30-3958Jcdzedsyj [Moles/volume] in Serum or PlasmaPotassium Lab Routine Hypokalemia Expected: 04/03/2024 (Approximate), Expires: 04/03/2025[facility] Work Phone: Comment on above:Expected: 04/03/2024 (Approximate), Expires: 04/03/2025Start: 04-01-2024 End: 45-88-0143Cxushzz encounter lvsgosaym87/09/2024 8:30 AM EST Office Visit [facility] [address] [facility] [address] [place] [address] Giovani Hagen MD [address] [facility] [address] [place] [address] [facility] CI FMStart: 03-27-2024 End: 26-08-4551rehljwowfs34/04/2024 4:00 PM EST Treatment [facility] PT [address] [facility] [address] [place] [address] Zhen Burgess, PT [address] [facility] [address] [place] [address] [facility] CI PTStart: 03-25-2024 End: 21-96-9367wkxuonpsen92/02/2024 4:00 PM EST Treatment [facility] PT [address] [facility] [address] [place] [address] Arun Triana, HE[employer]ISTRATION TE[employer]ER [facility] CI PTStart: 03-20-2024 End: 95-89-6930Wuhqnoo encounter ioghygxkt63/27/2024 4:00 PM EST Office Visit [facility] OB [address] [facility] [place] [id number] Darwin Starr, DO [address] [facility] [place] [address] [facility] BCP OBStart: 03-19-2024 End: 87-59-2350qpvhkzsahw68/26/2024 4:00 PM EST Treatment [facility] PT [address] [facility] [address] [place] [address] Anitra Sanchez, HEALTH ADMINISTRATION TE[employer]ER [facility] CI PTStart: 03-13-2024 End: 62-63-4517laitxranen46/20/2024 4:30 PM EST Treatment [facility] PT [address] [facility] [address] [place] [address] Zhen Burgess, PT [address] [facility] [address] [place] [address] [facility] CI PTStart: 03-11-2024 End: 81-42-7949wccwrwybbhNHHC CI PTComment on above:ArrivedStart: 03-06-2024 End: 56-62-6974qbveoavobySYLB CI PTStart: 03-04-2024 End: 76-16-3068giefcbwupt61/11/2024 9:00 AM EST Treatment [facility] PT [address] [place] [address] [place] [address] Arun Triana, HEALTH ADMINISTRATION TEACHER NOMS CI PTStart: 02-29-2024 End: 10-98-4709mbqswvkoikFYLJ CI PTComment on above:ArrivedStart: 02-27-2024 End: 13-23-8498qjaeihfgmbODZX CI PTComment on above:ArrivedStart: 02-21-2024 End: 61-22-2302rpfawbukko36/30/2024 4:30 PM EDT Treatment NOMS CI PT [address] [facility] [address] [place] [address] Anitra Sanchez, HEALTH ADMINISTRATION TEACHER NOMS CI PTStart: 02-14-2024 End: 17-60-3030afojmvcgdwDYRZ CI PTStart: 02-13-2024 End: 15-47-3386Sgmrofe encounter procedureCardiologyComment on above:Dx: Syncope, unspecified syncope type [R55]Start: 02-13-2024 End: 81-65-0857mclulublti77/22/2024 2:00 PM EDT Results Only Cardiology [address] [place] [address] Dx: Syncope, unspecified syncope type [R55]CardiologyComment on above:Dx: Syncope, unspecified syncope type [R55] Start: 02-12-2024 End: 67-83-8745bofmxwziqjBXKY CI PTComment on above:ArrivedStart: 02-07-2024 End: 15-14-3534gyeaosgybiLUXP CI PTComment on above:ArrivedStart: 02-05-2024 End: 59-48-1761jsdycocespBAGQ CI PTComment on above:Cervical radiculopathyStart: 01-22-2024 End: 35-16-2921Bowfgtc encounter ebtjbftyl23/30/2024 1:50 PM EDT Office Visit NOMS BCP [address] [facility] [place] [id number] Darwin Starr DO [address] [place] [address] [place] [address] NOMS BCP OBStart: 01-09-2024 End: 62-60-4300Xbmbfai encounter nseniehki69/17/2024 4:00 PM EDT Office Visit NOMS CI [address] [facility] [address] [place] [address] Giovani Hagen MD 112 [facility] [address] [place] [address] NOMS CI FMStart: 01-09-2024 End: 99-37-3679UG Cervical spine WO contrastMR cervical spine wo contrast Imaging Routine Cervical radiculopathy Expected: 01/09/2024, Expires:01/08/2025 [facility] HealthcareComment on above:Expected: 01/09/2024, Expires: 01/08/2025Start: 01-09-2024 End: 10-66-2628GT Cervical spine 2 or 3 ViewsXR cervical spine 2 or 3 views Imaging Routine Cervical radiculopathy Expected: 01/09/2024, Expires: 01/08/2025 [facility] Work Phone: Comment on above:Expected: 01/09/2024, Expires: 01/08/2025Start: 15-55-2393Tpzqr-19 Vaccine ( season)Covid-19 Vaccine ( season)[facility] 98-56-0631Hxumw-19 Vaccine ( season)Covid-19 Vaccine ( season)[facility]: 77-86-8932Fstmmgoqf vaccinationInfluenza Vaccine (#1)[facility]: 12-19-2023 End: 04-92-2940jimlqpzeed76/27/2024 2:15 PM EDT Results Only Cardiology [address] [place], [place] [id number] Exertional Syncope. Referring: Dr. Shilo BurnsdCardiologyComment on above:Exertional Syncope. Referring: Dr. Shilo Sweeneytart: 12-19-2023 End: 96-79-2976Turgkxi encounter procedureCardiologyComment on above:Exertional Syncope. Referring: Dr. Shilo Sweeneytart: 36-64-2990Euoxd screening for proteinDiabetes: Urine Protein ScreeningResearch Belton HospitalStart: 04-24-2023 Behavioral Health ScreeningBehavioral Health ScreeningDayton Osteopathic Hospitaltart: 15-51-1520Zxmrs-19 Vaccine ( season)Covid-19 Vaccine ()[facility]: 76-10-7717Vqpcdgmns vaccinationCleveland Clinic [facility]uclid [facility] Start: 14-04-7064XqodndhggUniversity Hospitals Parma Medical Centertart: 21-72-4166DICEMGFHIK ASSESSMENTDEPRESSION ASSESSMENTDayton Osteopathic Hospitaltart: 38-39-6522XNRPO-19 VACCINE (4 - Booster for Pfizer series)COVID-19 VACCINE (4 - Booster for Pfizer series) [facility]: 61-56-3450KDNZB-19 VACCINE (4 - Pfizer series)COVID-19 VACCINE (4 - Pfizer series)[facility]: 78-84-6503Anullhioa vaccinationINFLUENZA (#1)[facility]: 31-25-7832Ouvmt microalbumin profileDTaP,Tdap,Td Vaccine (6 - Td or Tdap)[facility]: 16-00-8606XAK TESTINGHPV TESTINGDayton Osteopathic Hospitaltart: 39-72-5040UNC TESTINGPAP TESTING [facility]: 43-36-2822Wbdrokxyk for malignant neoplasm of cervix Cervical Cancer ScreeningDayton Osteopathic Hospitaltart: 73-68-4647Dvkoecveh A Vaccines (1 of 2 - Risk 2-dose series)Hepatitis A Vaccines (1 of 2 - Risk 2-dose series) [facility] HealthcareStart: 79-94-6683Dkckkhzmqtxe Vaccine: Pediatrics (0 to 5 Years) and At-Risk Patients (6 to 64 Years) (1 of 2 - PCV)Pneumococcal Vaccine: Pediatrics (0 to 5 Years) and At-Risk Patients (6 to 64 Years) (1 of 2 - PCV) [facility] HospitalStart: 09-17-8765Pqgwm microalbumin profileDTAP,TDAP,TD (1 - Tdap)[facility]: 87-26-0644QCZ Vaccine (2 - 3-dose series)HPV Vaccine (2 - 3-dose series)[facility]: 92-91-0302ZRJ Vaccines (2 - 3-dose series)HPV Vaccines (2 - 3-dose series)[facility] HealthcareStart: 98-31-0145Agdftba ScreeningAnxiety ScreeningDayton Osteopathic Hospitaltart: 52-26-8074Lszlqnvnph Screening Depression ScreeningDayton Osteopathic Hospitaltart: 37-72-0799ILDJFPTPR C SCREENING HEPATITIS C SCREENINGDayton Osteopathic Hospitaltart: 59-30-1420Lgcjwddtq C screening Hepatitis C ScreeningDayton Osteopathic Hospitaltart: 01-90-6310LNQ SCREENINGHIV SCREENING [facility]: 10-97-1546AUB screeningHIV ScreeningCleveland Clinic Euclid Hospital Start: 78-93-0521Rcqpsthl screeningDiabetes: Retinopathy ScreeningFILLMORE COMMUNITY [facility]ENTER HealthcareStart: 66-98-4165Huvrylg of varicella vaccinationVaricella Vaccines (2 of 2 - 2-dose childhood series)[facility] HealthcareStart: 24-19-2402TIOAPAUBC B (1 of 3 - 3-dose series)HEPATITIS B (1 of 3 - 3-dose series)[facility]25- hydroxyvitamin D3 [Mass/volume] in Serum or PlasmaVitamin D 25 hydroxy Total Lab Routine Weight gain Ordered: 12/12/2024[facility] HospitalComment on above:Ordered: 5Actin smooth muscle IgG Ab [Units/volume] in SerumGeorgetown Behavioral Hospital End: 99-28-3060WFDOJ [place] [facility] MANOMETRYADB[facility] ANORECTPA MANOMETRY Endoscopy Routine Pelvic floor dysfunction Chronic constipation 1 Occurrences starting 10/09/2024 until 10/09/2025[facility] Work Phone: Comment on above:1 Occurrences starting 10/09/2024 until 6ADULT [place] ANORECTPA MANOMETRYADE[facility] MANOM[facility] Endoscopy Routine Pelvic floor dysfunction Chronic constipation 10/15/2024 [facility] Work Phone: Alpha 1 antitrypsin [Mass/volume] in Serum or Plasma [facility] HospitalAlpha 1 antitrypsin phenotyping [Identifier] in Serum or Plasma by ImmunofixationGeorgetown Behavioral HospitalCBC W Auto Differential panel - BloodCBC and differential Lab Routine Weight gain History of alcohol dependence (HCC) Other fatigue Ordered: 12/12/2024[facility] Healthcare Comment on above:Ordered: 5Ceruloplasmin [Mass/volume] in Serum or PlasmaGeorgetown Behavioral HospitalCHLAMYDIA TRACHOMATIS (GENITO/STI) CHLAMYDIA TRACHOMATIS (GENITO/STI) Lab Routine Pain in female genitalia on intercourse Cystitis Ordered: 06/25/2024[facility] HealthcareComment on above:Ordered: 06/25/2024HLAMYDIA TRACHOMATIS (GENITO/STI)CHLAMYDIA TRACHOMATIS (GENITO/STI) Lab Routine BV (bacterial vaginosis) Ordered: 02/27/2025[facility] HealthcareComment on above:Ordered: 02/27/2025 End: 16-03-6284OOCMQHOHRXY DIFFICILE TOXIN BY [facility], AvonComment on above:ONCE for 1 Occurrences starting 05/23/2024 until 5Cobalamin (Vitamin B12) [Mass/volume] in Serum or PlasmaVitamin B12 Lab Routine Elevated liver enzymes Weight gain History of alcohol dependence (HCC) Other fatigue Ordered: 12/12/2024[facility] HealthcareComment on above:Ordered: 12/12/2024 Comprehensive metabolic 2000 panel - Serum or PlasmaComprehensive metabolic panel Lab Routine Elevated liver enzymes Hypokalemia Weight gain History of alcohol dependence (HCC) Impaired fasting glucose Ordered: 12/12/2024[facility] HealthcareComment on above:Ordered: 12/12/2024 End: 28-77-4506Lk abdomen & pelvis w/o contrast materialCT ABD/PEL WO IVCON Radiology Routine Bilious vomiting with nausea Right sided abdominal pain Nausea 1 Occurrences starting 05/27/[address] [place] [address] Work Phone: Comment on above:1 Occurrences starting 05/27/2022 until 06/26/2023 End: 43-88-2100JT Guidance for core needle biopsy of LiverLIVER BIOPSY NEEDLE Endoscopy Routine ENGLISH (nonalcoholic steatohepatitis) 1 Occurrences starting until [facility]/14/2025[facility] Work Phone: Comment on above:1 Occurrences starting 05/14/2024 until 05/14/2025ytology Cervical or vaginal smear or scraping studyPap Smear Pathology and Cytology Routine Well woman exam with routine gynecological exam Ordered: 03/20/2024[facility] Work Phone: comment on above:Ordered: 03/20/2024ytology Cervical or vaginal smear or scraping studyPap Smear Pathology and Cytology Routine Well woman exam with routine gynecological exam Ordered: 02/27/2025[facility] [employer] Work Phone: comment on above:Ordered: 02/27/2025 End: 15-86-4963YPV COMPLETEECG COMPLETE ECG Routine Gastroparesis 1 Occurrences starting 11/02/2023 until 11/01/2024[facility] Work Phone: comment on above:1 Occurrences starting 11/02/2023 until 11/01/2024 End: 47-87-0938HAP COMPLETEECG COMPLETE ECG Routine Syncope and collapse 1 Occurrences starting 12/19/[address] [place] [address] Work Phone: comment on above:1 Occurrences starting 12/19/2023 until 12/18/2024 End: 46-12-0851AYY DIAGNOSTICEGD DIAGNOSTIC Endoscopy Routine Bilious vomiting with nausea Right sided abdominal pain 1 Occurrences starting 05/27/2022 until 05/27/2023[facility] Work Phone: comment on above:1 Occurrences starting 05/27/2022 until 05/27/2023Electrogastrography dx transcutaneousEGG (ELECTROGASTROGRAPHY) Procedures Routine Gastroparesis Ordered: 09/14/2022[facility] Work Phone: comment on above:Ordered: 09/14/2022ENTERIC BACTERIAL PANEL BY PCRKettering Health Preble Work Phone: comkqug on above:Release Upon Ordering for 1 Occurrences starting 05/22/2024 End: 99-48-9713Rvvsrtjx sigmoidoscopy studyCOLONOSCOPY DIAGNOSTIC Endoscopy Routine BRBPR (bright red blood per rectum) 1 Occurrences ybiguxwx31/03/2025 until 04/26/2025[facility] SouthComment on above:1 Occurrences starting 04/26/2024 until 01/03/2026Folate [Mass/volume] in Serum or PlasmaFolate Lab Routine Elevated liver enzymes Weight gain History of alcohol dependence (HCC) Other fatigue Ordered: 12/12/2024[facility] HealthcareComment on above:Ordered: 12/12/2024Hemoglobin A1c/Hemoglobin.total in BloodHemoglobin A1c Lab Routine Weight gain Impaired fasting glucose Ordered: 12/12/2024[facility] HealthcareComment on above:Ordered: 12/12/2024Hepatitis A virus Ab [Presence] in Serum by ImmunoassayGeorgetown Behavioral HospitalHFE gene mutations found [Identifier] in Blood or Tissue by Molecular genetics method [facility] HospitalHomogenous nuclear Ab pattern [Titer] in SerumGeorgetown Behavioral HospitalHuman papilloma virus DNA [Presence] in Unspecified specimen by Probe with amplificationHPV DNA probe, amplified Microbiology Routine Well woman exam with routine gynecological exam Ordered: 03/20/2024[facility] HealthcareComment on above:Ordered: 03/20/2024Human papilloma virus DNA [Presence] in Unspecified specimen by Probe with amplificationHPV DNA probe, amplified Microbiology Routine Well woman exam with routine gynecological exam Ordered: 02/27/2025[facility] HealthcareComment on above:Ordered: 02/27/2025IgG [Mass/volume] in Serum or PlasmaGeorgetown Behavioral HospitalIron + transferrin + TIBCIron + transferrin + TIBC Lab Routine Elevated liver enzymes Weight gain Other fatigue Ordered: 12/12/2024[facility] HealthcareComment on above: Ordered: 12/12/2024Lipoprotein a [Moles/volume] in Serum or PlasmaGeorgetown Behavioral HospitalLiver ultrasound attenuation by transient elastographyDDI VIBRATION CONTROLLED TRANSIENT ELASTOGRAPHY (VCTE) Endoscopy Routine Elevated LFTs Ordered: 04/26/2024leveland ClinicComment on above:Ordered: 04/26/2024 Mitochondria M2 IgG Ab [Units/volume] in SerumGeorgetown Behavioral Hospital Neisseria gonorrhoeae DNA [Presence] in Unspecified specimen by SHEILA with probe detectionNeisseria gonorrhea DNA probe, direct Lab Routine Pain in female genitalia on intercourse Cystitis Ordered: 06/25/2024[facility] HealthcareComment on above:Ordered: 06/25/2024Neisseria gonorrhoeae DNA [Presence] in Unspecified specimen by SHEILA with probe detectionNeisseria gonorrhea DNA probe, direct Lab Routine BV (bacterial vaginosis) Ordered: 02/27/2025[facility] HospitalComment on above:Ordered: 02/27/2025Nuclear Ab [Titer] in [facility] HospitalOUTSIDE VENDOR CARDIAC OUTPATIENT EXTENDED RHYTHM RECORDING (WITHOUT TELEMETRY)OUTSIDE VENDOR CARDIAC OUTPATIENT EXTENDED RHYTHM RECORDING (WITHOUT TELEMETRY) Holter Routine Syncope, unspecified syncope type Ordered: 12/19/2023 [facility] HospitalComment on above:Ordered: 12/19/2023atient EducationDepression in adults - Discharge instructions [facility] DC Instructions [facility] Work Phone: Patient [facility] Work Phone: End: 90-13-8746DNFUZW ECHO TREADMILLSTRESS ECHO TREADMILL Cardiology Routine Syncope, unspecified syncope type 1 Occurrences starting 12/19/2023 until 12/18/2024[facility] Work Phone: comment on above:1 Occurrences starting 12/19/2023 until 12/18/2024SURESWAB(R) ADVANCED VAGINITIS PLUS, TMASURESWAB(R) ADVANCED VAGINITIS PLUS, TMA Pathology and Cytology Routine Pain in female genitalia on intercourse Cystitis Ordered: 06/25/2024[facility] Work Phone: comment on above:Ordered: 06/25/2024SURESWAB(R) ADVANCED VAGINITIS PLUS, TMASURESWAB(R) ADVANCED VAGINITIS PLUS, TMA Pathology and Cytology Routine BV (bacterial vaginosis) Ordered: 02/27/2025[facility] Comment on above:Ordered: 02/27/2025SURGICAL PATHOLOGYCleveland Clinic Euclid HospitalComment on above:Release Upon Ordering for 1 Occurrences starting 05/22/2024, 1 completed TSH W/REFLEX TO FT4TSH W/REFLEX TO FT4 Lab Routine Weight gain History of alcohol dependence (HCC) Other fatigue Ordered: 12/12/2024[facility] HospitalComment on above:Ordered: 12/12/2024 End: 50-77-0940On abdominal real time w/image limitedUS ABD RT UPPER QUADRANT Radiology Routine Liver lesion 1 Occurrences starting 06/14/2022 until 06/23[facility] Work Phone: comment on above:1 Occurrences starting 06/14/2022 until 07/14/2023Vitamin U3Dkfsemw B1 Lab Routine Elevated liver enzymes Weight gain History of alcohol dependence (HCC) Ordered: 12/12/2024[facility] Comment on above:Ordered: 12/12/2024Vitamin Y9Lxhvtjb B6 Lab Routine Elevated liver enzymes Weight gain History of alcohol dependence (HCC) Ordered: 12/12/2024[facility] Work Phone: Comment on above:Ordered: 12/12/2024XR Abdomen Supine and UprightXR ABDOMEN 2V ROUTINE SUPINE W UPRIGHT/DECUB/CTL Radiology Routine Chronic idiopathic constipation 07/10/2024 11:30 AM [facility] Work Phone: End: 97-12-8282LE Abdomen Supine and UprightXR ABDOMEN 1V SUPINE Radiology Routine Pelvic floor dysfunction Chronic constipation 3x per week for 3 Occurrences starting 10/09/2024 until 11/08/2025[facility] SouthComment on above:3x per week for 3 Occurrences starting 10/09/2024 until 11/08/2025 [facility] Immunizations Immunization DateImmunizationNotesCare GsfxwqrmBtjvuwwm33-43-1505bdfecsj toxoid, reduced diphtheria toxoid, and acellular pertussis vaccine, Román Hagen MD Work Phone: [facility] HospitalOzhctnojik13-50-4762NDHW-KjY-0 mRNA (iomreyfbhwe-jqkq-rlzuswy) vaccinePaGokuai Technology [facility]y01-06-2022SARS-CoV-2 (COVID-19) mRNA BNT-162b2 vaxInboundWriter [facility] Hospitaly11-10-2021SARS-CoV-2 (COVID-19) mRNA BNT-162b2 vaxInboundWriter [facility] HospitalyComment on above:Result Comment: 2022-06-29: PEXJC76-08-2960xiwwtbpif virus vaccine, unspecified formulationPaGokuai Technology [facility]y10-19-2021influenza, injectable, quadrivalent, preservative freeJeremy Blackston PT Work Phone: [facility] HospitalQwkgpvjbob04-55-0010xibezbdax virus vaccine, unspecified formulationPaGokuai Technology [facility]y11-23-2020Influenza, injectable, [place] Canine Kidney, preservative free, quadrivalentJeremy Blackston PT Work Phone: [facility] HospitalXhztjqtoku68-23-5765brckuuvdq virus vaccine, unspecified formulationInboundWriter [facility]09-17-2018influenza, injectable, quadrivalent, contains preservative Zhen Blackston PT Work Phone: [facility] HospitalEwiswydlxn25-56-4066hvzzavkph, injectable, quadrivalent, preservative freeJeremy Blackston PT Work Phone: [facility] HospitalModaasxcdw18-59-8928hmdwyrwoc virus vaccine, unspecified formulationPaWorld Wide Packetsk [x+1] [facility] Hospitaly10-11-2017Influenza, injectable, [place] Canine Kidney, preservative free, quadrivalentJeremy Blackston PT Work Phone: [facility] HospitalYywvbmoloo81-08-9157ytbytrcel virus vaccine, unspecified formulationInboundWriter [facility] Hospitaly12-02-2016influenza, injectable, quadrivalent, preservative freeJeremy Blackston PT Work Phone: [facility] HospitalKvixgmmbys77-82-0488eupbgxi toxoid, reduced diphtheria toxoid, and acellular pertussis vaccine, adsorbedPamcdowell arh hospitalannabel ORTIZ [facility]09-14-2007hepatitis B vaccine, pediatric or pediatric/adolescent dosage Madhuri ORTIZ [facility]07-12-2007hepatitis B vaccine, pediatric or pediatric/adolescent dosage Madhuri ORTIZ [facility]07-12-2007HPV, unspecified formulationAdventhealth ManchesterCreativeD [facility]07-12-2007human papilloma virus vaccine, quadrivalentJemona Burgess PT Work Phone: [facility] HospitalLrerwxqmph93-89-1219kugqfxyzypyun ACWY vaccine, unspecified formulationC[place] ORTIZ [facility]07-12-2007meningococcal polysaccharide (groups A, C, Y and W-135) diphtheria toxoid conjugate vaccine (MCV4P)Zhen Burgess PT Work Phone: [facility] HospitalAywasowdow83-77-5721mvpbwikko B vaccine, pediatric or pediatric/adolescent dosageAdventhealth Manchesterannabel ORTIZ [facility]09-06-1994diphtheria, tetanus toxoids and pertussis vaccineZhen Burgess PT Work Phone: [facility] HospitalErzxtgqzpi01-25-4576hqvfzxtpea, tetanus toxoids and pertussis vaccineZhen Burgess PT Work Phone: [facility] HospitalIvjuvusvrp59-31-2498tdrcqad, mumps and rubella virus vaccineCopenhagen ORTIZ [facility]08-16-1993trivalent poliovirus vaccine, live, oralJemona Burgess PT Work Phone: [facility] HospitalXfselffltr59-30-7326yxmnssrxzc, tetanus toxoids and pertussis vaccineJeremy Lupe PT Work Phone: [facility] HospitalKukxrzhklm80-99-6905hbwnqxc, mumps and rubella virus vaccinePaebony ORTIZ [facility]02-16-1993trivalent poliovirus vaccine, live, oralJeremy Lupe PT Work Phone: [facility] HospitalOaczaovbix66-27-2189nzwupkvup virus vaccine Madhuri ORTIZ [facility]02-27-1991diphtheria, tetanus toxoids and pertussis vaccineJeremy Lupe PT Work Phone: [facility] HospitalWulutozexa02-71-9455auywgekso poliovirus vaccine, live, oralJeremy Barbieton PT Work Phone: [facility] HospitalVyhgqqoikz20-32-4008vdmaiyrts poliovirus vaccine, live, oralJeremy Lupe PT Work Phone: [facility] HospitalNEGATED: Highlighted row has not occurred!81-05-6815cptszknqt virus vaccine, live, attenuated, for intranasal use Madhuricecille ORTIZ [facility] HospitalGATED: Highlighted row has not occurred!54-62-5310kzqsammqr virus vaccine, live, attenuated, for intranasal useMoebony ORTIZ [facility] Payers DatePayer CategoryPayerPolicy [id number]-fwi [id number] Health Insurance [id number]38797.668526.86830-57-0966Vlgiurj 1.2.840.883742.1.13.159.2.7.3.455[id number] 2.840.1.946357.3.57[id number] 2.840.1.532165.3.579.[id number] 2.840.1.222130.3.579.2.76407-02-8405Lfnytjv5328934 2.840.1.142963.3.579.2.39046-06-3645Yhyakyg0710548 2.0.1.951714.3.579.2.87026-06-0285Wbquvgu0928938 2.0.1.241666.3.579.2.20954-54-2236Tbtqidt5635338 2..1.568869.3.579.2.69460-64-6856Dcnumij3235540 2..1.337108.3.579.2.38508-91-4527Ptonphu3660911 2..1.596833.3.579.2.92079-43-8165Gtnxmmv9433763 2..1.687428.3.579.2.65357-86-5475Thfvift1848586 2.840.1.694837.3.579.2.88603-46-7452Oojbkzh4036300 2.0.1.668077.3.579.2.78788-90-4496Ftaueof5736698 2.0.1.725157.3.579.2.14963-34-2640Oagenoo7680647 2.840.1.202230.3.579.2.03637-76-1929Okhogve73750927 2.840.1.788137.3.579.2.20436-75-6855Upqdbkt86895893 2.16840.1.459682.3.579.2.53687-03-3443Bxvrqsk90748621 2.16840.1.563793.3.579.2.09249-05-6501Htxmiyp87805341 2.0.1.045914.3.579.2.03895-61-8154Zqbnxfq80153466 2.160.1.078961.3.579.2.87346-89-6083Uzbyvdj54333427 2..1.267781.3.579.2.95725-21-4646Yldwarl73853887 2..1.653857.3.579.2.64964-16-0108Wyoaatw34997632 2..1.937381.3.579.2.591349-18-7196Flzppck79400568 2..1.888874.3.579.2.849567-25-3360Tgcjfip24912526 2..1.630620.3.579.2.371964-09-5045Avqncab87050269 2..1.536133.3.579.2.059628-34-8225Mqjznhf22895754 2..1.174517.3.579.2.036378-60-7716Jmpjerb82267340 2..1.288780.3.579.2.043440-21-7248Nasajct93438404 2.840.1.754200.3.579.2.219537-24-0118Xdldcsk20185073 2.0.1.818877.3.579.2.400128-20-5318Znehpzu83656362 2.16.840.1.003739.3.579.2.940503-49-5897Ejuliwe19356740 2.16.840.1.876198.3.579.2.146333-95-7677Zabrknc12169422 2.16.840.1.711177.3.579.2.275288-86-8333Iaslsan57013638 2.16840.1.605439.3.579.2.514219-05-7559Fvtkmre74740385 2.16840.1.805394.3.579.2.565136-43-1275Wgkocny67306873 2.840.1.323043.3.579.2.484177-95-0146Aplmjhh42306574 2.840.1.554226.3.579.2.767851-81-4422Fwfpzkf00634389 2.840.1.627898.3.579.2.866230-59-7096Luhtnsf37483227 2.0.1.173344.3.579.2.724483-24-2845Ymumfxk39976192 2.840.1.555997.3.579.2.075717-77-6883Vmiwhru7360408 2.840.1.712785.3.579.2.848447-14-0890Tpshxvj9306159 2.16840.1.452438.3.579.2.127891-64-3968Pynhqpi2261028 2.840.1.025401.3.579.2.105363-52-5287Dxcbhvo8231551 2.16840.1.286785.3.579.2.803354-30-3157Mfpaawx6906759 2.16840.1.582507.3.579.2.707591-62-6750Iswwgzy7642442 2.16.840.1.665716.3.579.2.006182-72-1168Klfknwq2733501 2.160.1.183189.3.579.2.189536-92-2799Qowtkvf1016544 2.16840.1.203889.3.579.2.109426-98-5554Nrxxhtr1611525 2.0.1.265425.3.579.2.100343-54-8580Cgsargz0131568 2.0.1.574232.3.579.2.082642-98-9415Eonsscf8217365 2..1.846769.3.579.2.476585-92-4101Xmvzxee0799955 2..1.822309.3.579.2.580203-57-2441Icioywj3204337 2..1.722504.3.579.2.923654-25-4121Ddrkjgw3160128 2..1.671505.3.579.2.363020-76-2421Dohziiu4193591 2..1.430344.3.579.2.018413-26-4871Dveelfq4440295 2..1.482106.3.579.2.467070-34-5381Pmzhogt5810704 2..1.340726.3.579.2.222219-59-1755Qjkwrjy7875972 2.0.1.161063.3.579.2.768475-82-3361Nzjvfgs3250057 2.840.1.213846.3.579.2.058940-73-6815Vnlvgry2784872 2..1.173986.3.579.2.969157-88-6496Flidybt7358636 2..1.903997.3.579.2.673986-68-6195Ppqsxym0977048 2..1.185506.3.579.2.272600-42-7428Fhjyzsc0235839 2..1.535677.3.579.2.615519-29-6864Vnfnobv5834060 2..1.196894.3.579.2.770826-58-4030Sfuoawu1080254 2..1.146909.3.579.2.539101-46-9498Xnythrl0804388 2..1.503948.3.579.2.267176-20-2093Jirpmer0168988 2..1.049093.3.579.2.788098-07-5823Epolokr3229512 2..1.860069.3.579.2.455983-24-4948Retcvyc3253477 2..1.092634.3.579.2.050284-49-5344Mlektox8994885 2..1.821017.3.579.2.977073-74-7755Difnlah40815687Zhnlsfn278 [facility] [id number] 867821o8-220v-4l3p-ju16-x3138197ylwcYekndlp30162266 2..1.266865.3.579.2.531 Social History DateTypeDetailFacilityTobacco smoking status NHISUnknown if ever smokedGerman Hospital Work Phone: Start: 82-27-9875Qrs [facility] 03-28-2019 End: 02-36-9663Rdecxvy smoking status NHISNever smoked tobaccoC[facility] Start: 05-27-2022 End: 25-98-3630Yppzyoe use and exposureSmokeless tobacco non-userDayton Osteopathic Hospitaltart: 05-27-2022 End: 26-20-1198Xrgxtbw intakeCurrent drinker of alcohol (finding)[facility] Hospitaltart: 21-52-2223Iaronza CommentsociallyCgeorgetown behavioral hospital ClinicStart: 1988 Sex Assigned At BirthNot on fileDayton Osteopathic Hospitaltart: 11-02-2022 End: 60-26-6909Nlu [facility]igned At [facility]: 06-29-2022 End: 55-39-3064Ejwjuqc smoking statusEx-smoker (finding)[facility]: 01-24-2019 End: 13-54-1577Zdekxcv smoking statusNeverExec[facility] of [facility]: 11-02-2022 End: 06-88-4740Kzulxsp of Social functionNOMS HealthcareStart: 38-19-5892Unmrhd identityIdentifies as female gender (finding)[facility] Hospitaltart: 11-16-2021 End: 92-31-2156Rdkrvreu to SARS-CoV-2 (event)Not sureDayton Osteopathic Hospitaltart: 18-42-2136Fsclmjo of tobacco useCurrent smokerNOMS HealthcareWithin the last year, have you been afraid of your partner or ex-partner?NoNOMS HealthcareDo you belong to any clubs or organizations such as quaker groups, unions, fraternal [...] or more drinks on 1 occasion?Less than monthlyNOMS HealthcareStart: 02-02-2013 End: 22-98-4958HzcBvxbmz (finding)[facility] HospitalHistory of tobacco useCigarette SmokerNOMS HealthcareSexual OrientationExec[facility] start: 48-51-0914Tlhbbde smoking status NHISSmokes tobacco dailyNOMS Healthcare Goals DatePatient GoalDesired Activity/StatePersonal health goalPersonal health goal Functional Status JkdqCpjjodifjcRdwzxdBygakqrp99-61-8917Jddlkdz Health Questionnaire 2 item (PHQ- 2) [Reported][facility] HospitalDlsrsczebi37-92-8236CVQ-2 quick depression assessment panel [Reported.PHQ][facility] HospitalVawkuxnlov36-09-4795Fyrajol Health Questionnaire 2 item (PHQ- 2) [Reported][facility] HospitalPfcvbthfic29-60-4951EWE-8 quick depression assessment panel [Reported.PHQ][facility] HospitalEbovtrurie51-29-2819Mwzqelt Health Questionnaire 2 item (PHQ- 2) [Reported][facility] HospitalBirellleyu99-41-2555MYE-9 quick depression assessment panel [Reported.PHQ][facility] HospitalUrxekvbesa90-68-0010Lmnwsbs Health Questionnaire 2 item (PHQ- 2) [Reported][facility] HospitalMaraeplsyb49-75-1722Hcydrsd Health Questionnaire 2 item (PHQ- 2) [Reported][facility] HospitalMlhietdtem85-89-9730Ghfluozfvr statusPatient at [facility] Work Phone: [phone]) 644-454103724572-17-0612Ddrnysr Health Questionnaire 2 item (PHQ-2) [Reported][facility] HospitalBwgxppyqwg01-99-8633Wiqry score [AUDIT-C]3 05/09/2024 9:30 AM EST Mychart, GenericNOMS Anqvcmikaq79-98-0560Qbe often do you have a drink containing alcohol?2-4 times a month 05/09/2024 9:30 AM EST Mychart, Generic 2-4 times a monthResearch Belton HospitalYizmdvgxkc67-10-1864Lzc many standard drinks containing alcohol do you have on a typical day?1 or 2 05/09/2024 9:30 AM EST Mychart, Generic 1 or 2NOMS Lwqlnqadmg26-85-7931Pqu often do you have 6 or more drinks on 1 occasion?Less than monthly 05/09/2024 9:30 AM EST Mychart, Generic Less than monthlyResearch Belton HospitalMkthligezs13-46-8380Tmsptswldp StatusN/AExecutive [facility]rology of [facility]03-09-2023Functional StatusN/AFisher [facility] Mental Status JahaZastebqxjlUsgwzoBpootozt68-51-2605Jzyijpxer functionCognitive Status Patient at BaselineGerman Hospital Work Phone: Clinical Notes 05-03-2022 to 03-03-2025 Note Date & CusfQtabYlntmtoe37-95-3074 Telephone encounter Note* Telephone Encounter - Gay Domingo MA - 03/03/2025 4:49 PM EST Patients scanned for orhotics and sent to [employer] on 03/03/25 [facility] HospitalMecjybmlcn17-17-3028 Miscellaneous Notes* Telephone Encounter - Gay Domingo MA - 03/03/2025 4:49 PM EST Patients scanned for orhotics and sent to [employer] on 03/03/25 * Telephone Encounter - Caitlin Daugherty - 02/20/2025 1:51 PM EDT Pt notified of benefits, she would like to proceed. Scan and send next appt - 03/03/25 (note in appt screen) * Telephone Encounter - Caitlin Daugherty - 02/20/2025 1:47 PM EDT Left msg to go over benefits. Note in appt screen to get scanned - 03/03/25 * Telephone Encounter - Caitlin Daugherty - 02/20/2025 10:14 AM EDT Per Yvonne with O Ref # [id number] Group year plan (October -> September) L1970 / L2820 / L1960 Dx: M65.871 / M77.51 Covered @ 100% - ded/oop met DED: $400 Met OOP: $2500 Met No PA, no exclusions, 2 in 1 day (none purchased) documented in this encounterResearch Belton HospitalVmuucwrmjt20-15-4550 History of Present illness Narrative* Milton Fraire DPM FACFAS - 03/03/2025 4:30 PM EST Images from the original note [...] also complaining of the left drop foot she was doing significantlybetter after the cortisone injection. Allergies: Allergies Allergen Reactions Cat Dander Anaphylaxis Iodine Itching and Swelling Omnipaque 300: Patient experienced itching on her neck and left side of her face. Also, pt complained of tongue feeling itchy and feels like something is stuck in her throat . Patient received diphenhydramine (Benadryl) Other Reaction(s): unknow Iodinated Contrast Media Hives Past Medical History: Active Ambulatory Problems Diagnosis [...] Acute biliary pancreatitis without infection or necrosis (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 Major depressive disorder, recurrent, moderate ([facility]) 08/20/2024 Alcohol use, unspecified with alcohol-induced psychotic disorder, unspecified ([facility]) 09/02/2024 Alcohol withdrawal delirium ([facility]) 09/02/2024 Hypertension 09/02/2024 Sinus tachycardia 09/02/2024 Fall at home 09/10/2024 Extruding suture 09/25/2024 Lumbar radiculopathy 12/09/2024 Generalized anxiety disorder 12/12/2024 Obsessive-compulsive disorder 12/12/2024 Pelvic floor dysfunction 10/11/2024 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) History of being hospitalized History of colonoscopy 05/28/2019 History of diagnostic ultrasound 03/23/2018 History of diagnostic ultrasound 12/10/2021 History of esophagogastroduodenoscopy 06/30/2022 History of esophagogastroduodenoscopy 08/31/2022 History of HIDA scan 08/28/2021 History of medical problems 03/18/2020 History of medical problems 08/16/2021 History of medical problems 06/10/2022 Influenza A 05/07/2017 Ingrown toenail 2015 Left ovarian cyst 03/01/2019 Pancreatitis ([facility]) Pap smear for cervical cancer screening 04/20/2022 Post depression Seizures ([facility]) 2002 Medications: Current Outpatient Medications: albuterol (2.5 [...] mg by mouth Daily, Disp: , Rfl: Yreprfyuhoh-Jplheeyta-Nxnpiv (Trelegy Ellipta) 100-62.5-25 MCG/ACT aerosol powder , [...] < 3 seconds Digits 1-5 bilateral NEURO: Milfay Cullen 5.07 monofilament was intact B/L. Vibratory [...] the ankle or subtalar joint. ASSESSMENT 1. Foot drop, left 2. Other synovitis and tenosynovitis, right ankle and foot PLAN Patient was doing significantly better. Grayson brace fabricated for her left foot drop she will follow up with me after the Kit brace arrives she is doing much better JASON Conti documented in this encounterResearch Belton HospitalWjqlxofxxq18-53-4151 History of Present illness Narrative* VINH Sibley - 02/27/2025 3:00 PM EST Reason for Appointment: Patient ID: Orion Harper is a 34 y.o. female who presents for Gynecologic Exam Patient presents today for Annual Exam. MEDICATIONS Current Outpatient Medications Medication Instructions albuterol HFA 90 mcg/act inhaler 2 puffs, Inhalation, Every 6 hours PRN albuterol 2.5 mg, Nebulization, Every 6 hours PRN amphetamine-dextroamphetamine XR (Adderall XR) 10 MG 24 hr capsule 10 mg, Oral, Every morning, Do not crush or chew. Take with the 30mg tablet amphetamine-dextroamphetamine XR (Adderall XR) 30 MG 24 hr capsule 30 mg, Oral, Daily, Do not crushor chew. Take with the 10mg daily buPROPion XL (WELLBUTRIN XL) 150 mg, Every morning Cariprazine HCl (Vraylar) 4.5 MG capsule 1 capsule, Oral, Daily celecoxib (CELEBREX) 100 mg, Oral, 2 times daily citalopram (CeleXA) 10 MG tablet Every 24 hours dapagliflozin (FARXIGA) 10 mg, Oral, Daily doxepin (SINEQUAN) 200 mg, Oral, Nightly escitalopram (LEXAPRO) 20 mg, Daily Ojqxwwhsgig-Uglhkqogu-Kbkqka (Trelegy Ellipta) 100-62.5-25 MCG/ACT aerosol powder 1 puff, Inhalation, Daily LORazepam (ATIVAN) 0.5 mg, 2 times daily metoprolol succinate XL (TOPROL-XL) 25 mg, Oral, Daily montelukast (SINGULAIR) 10 mg, Oral, Nightly ondansetron ODT (ZOFRAN-ODT) 4 mg, Every 6 hours PRN OXcarbazepine (Trileptal) 300 MG tablet Take 0.5 tablets (150 mg) by mouth at bedtime for 7 days, THEN 1 tablet (300 mg) at bedtime. OXcarbazepine (TRILEPTAL) 300 mg, Oral, 2 times daily prazosin (MINIPRESS) 2 mg, Oral, 3 times daily propranolol (Inderal) 10 MG tablet Every 12 hours Wegovy 0.25 mg, Subcutaneous, Weekly Wegovy 0.25 mg, Subcutaneous, Weekly ALLERGIES Allergies Allergen Reactions Cat Dander Anaphylaxis Iodine Itching and Swelling Omnipaque 300: Patient experienced itching on her neck and left side of her face. Also, pt complained of tongue feeling itchy and feels like something is stuck in her throat . Patient received diphenhydramine (Benadryl) Other Reaction(s): unknow Iodinated Contrast Media Hives PROBLEMS Active Ambulatory Problems Diagnosis Date Noted [...] Acute biliary pancreatitis without infection or necrosis ([facility]) 03/21/2023 Calculus of gallbladder without [...] Morbid (severe) obesity due to excess calories ([facility]) 12/16/2024 Impaired fasting glucose 12/16/2024 Obesity, class 2 12/16/2024 Atypical migraine 12/29/2024 Chest pain 01/06/2025 Type 2 diabetes mellitus without complication, without long-term current use of insulin (HCC) 01/06/2025 Resolved Ambulatory Problems Diagnosis Date Noted [...] screening 04/20/2022 Post depression Seizures (HCC) 2003 HISTORY PAST MEDICAL HISTORY SOCIAL HISTORY Past [...] anterior talofibular ligament of right ankle 04/01/2024 Social History Tobacco Use Smoking status: Every Day Types: Cigarettes Smokeless tobacco: Never Vaping Use Vaping status: Never Used Substance Use Topics Alcohol use: Yes Alcohol/week: 2.0 standard drinks of alcohol Types: 2 Standard drinks or equivalent per week Drug use: Yes Types: Amphetamines FAMILY HISTORY Family History Problem Relation Name [...] HYSTERECTOMY 05/2016 PELVIC LAPAROSCOPY 02/10/2023 TOENAIL EXCISION 2016 REVIEW OF SYSTEMS Review of Systems: Review of Systems All other systems reviewed and are negative. OBJECTIVE Objective: Physical Exam Constitutional: Appearance: Normal appearance. She is well-developed and normal weight. Genitourinary: Vulva normal. HENT: Head: Normocephalic. Cardiovascular: Rate and Rhythm: Normal rate and regular rhythm. Pulses: Normal pulses. Pulmonary: Effort: Pulmonary effort is normal. Breath sounds: Normal breath sounds. Abdominal: General: Bowel sounds are normal. There is no distension. Palpations: Abdomen is soft. Tenderness: There is no abdominal tenderness. There is no guarding or rebound. Musculoskeletal: General: No swelling. Normal range of motion. Right lower leg: No edema. Left lower leg: No edema. Neurological: General: No focal deficit present. Mental Status: She is alert and oriented to person, place, and time. Skin: General: Skin is warm and dry. Psychiatric: Mood and Affect: Mood normal. Behavior: Behavior normal. Thought Content: Thought content normal. Judgment: Judgment normal. Vitals and nursing note reviewed. Exam conducted with a cadd drafter present. Vitals: Estimated body mass index is 38.41 kg/m as calculated from the following: Height as of this encounter: 5' 2 . Weight as of this encounter: 210 lb. BP: 120/74 No LMP recorded (lmp unknown). Patient has had a hysterectomy. Assessment/Plan ICD-10-CM 1. Well woman exam with routine gynecological exam Z01.419 Pap Smear HPV DNA probe, amplified 2. H/O: hysterectomy Z90.710 3. Abnormal urine odor R82.90 POCT urinalysis dipstick manually resulted Annual Exam: Patient presents today for an annual exam. Patient states she is doing well with a complaint of herurine having a strong odor every morning. Pt states she does not have any burning or frequent urge to urinate just a very strong odor. Pt would like to have her urine dipped at today's visit. Pap wasobtained without difficulty. Orders Placed This Encounter Procedures HPV DNA probe, amplified POCT urinalysis dipstick manually resulted Follow Up: Patient is to return in one year for annual unless needed otherwise. Documented by Patricia Waldrop MA on behalf of: VINH Sibley documented in this [facility]11-06-2025 Telephone encounter Note* Telephone Encounter - VINH Roque - 02/27/2025 2:11 PM EST OARRS reviewed, Rx sent into patient's pharmacy. [facility] Leacnyyrgt67-15-9069 Miscellaneous Notes* Telephone Encounter - VINH Roque - 02/27/2025 2:11 PM EST OARRS reviewed, Rx sent into patient's pharmacy. documented in this encounterResearch Belton HospitalEeqeuiiwdb20-55-7743 Telephone encounter Note* Telephone Encounter - Caitlin Daugherty - 02/20/2025 1:51 PM EDT Pt notified of benefits, she would like to proceed. Scan and send next appt - 03/03/25 (note in appt screen) [facility] HospitalVcwybwepsp25-45-7872 Telephone encounter Note* Telephone Encounter - Caitlinrickey Daugherty - 02/20/2025 1:47 PM EDT Left msg to go over benefits. Note in appt screen to get scanned - 03/03/25 [facility] HospitalJsuesdfkci93-11-0174 Telephone encounter Note* Telephone Encounter - Caitlin Daugherty - 02/20/2025 10:14 AM EDT Per Yvonne with MMO Ref # [id number] Group year plan (October -> September) L1970 / L2820 / L1960 Dx: M65.871 / M77.51 Covered @ 100% - ded/oop met DED: $400 Met OOP: $2500 Met No PA, no exclusions, 2 in 1 day (none purchased) [facility] HospitalIrvfofkxez73-85-0748 NoteHNO ID: [id number] Author: CAROL WINN MD Service: ? Author Type: Physician Type: Progress Notes Filed: 02/17/2025 09:26 Note Text: HPI: Orion A Meredith, 34 year old female, presents in the [...] normal. She was referred to a female shoe associate and was recommended IBSRELA, which she did not start due to insurance issues. Capsule endoscopy was also recommended but not completed due to cost. Laparoscopy by her home health manager ruled out endometriosis. 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 FibroScan in April showed minimal scarring and S2 steatotic changes. She reports social alcohol use on weekends or every other weekend. She has been biking 16 miles a day, but continues to gain weight. She is enrolled in the [employer] program through her employer, which provides a [...] chance of stage 0-2 (more content not included)...[facility]10-23-2025 Telephone encounter Note* Telephone Encounter - Ivelisse Ferguson - 02/13/2025 9:51 AM EDT Called pt to reschedule appointment, pt states she is having a really hard time with her foot drop.Pt is wanting to know if there is anything she can do to help with this. [facility] HospitalFtafsotqmf62-69-2876 Miscellaneous Notes* Telephone Encounter - Ivelisse Ferguson - 02/13/2025 9:51 AM EDT Called pt to reschedule appointment, pt states she is having a really hard time with her foot drop.Pt is wanting to know if there is anything she can do to help with this. documented in this encounterResearch Belton HospitalHluqaxgbyq19-16-0191 History of Present illness Narrative* Milton Fraire [...] Morbid (severe) obesity due to excess calories ([facility]) 12/16/2024 Impaired fasting glucose 12/16/2024 Obesity, class 2 12/16/2024 Atypical migraine 12/29/2024 Chest pain 01/06/2025 Type 2 diabetes mellitus without complication, without long-term current use of insulin ([facility]) 01/06/2025 Resolved Ambulatory Problems Diagnosis Date Noted [...] toenail 2015 Left ovarian cyst 03/01/2019 Pancreatitis ([facility]) Pap smear for cervical cancer screening 04/20/2022 Post depression Seizures ([facility]) 2002 Medications: Current Outpatient Medications: albuterol (2.5 [...] mg by mouth Daily, Disp: , Rfl: Hbvzillqdff-Fgbwgbegh-Ooanbd (Trelegy Ellipta) 100-62.5-25 MCG/ACT aerosol powder , [...] < 3 seconds Digits 1-5 bilateral NEURO: Milfay Cullen 5.07 monofilament was intact B/L. Vibratory [...] into underlying subcutaneous tissue. I recommended a Grayson brace for her left drop foot JASON Conti documented in this encounterResearch Belton HospitalRmakqaglro55-19-8501 Telephone encounter Note* Telephone Encounter - VINH Roque - 01/22/2025 9:39 AM EDT OARRS reviewed, Rx sent into patient's pharmacy. [facility] HospitalRtteucmvwy20-82-2149 Miscellaneous Notes* Telephone Encounter - VINH Roque - 01/22/2025 9:39 AM EDT OARRS reviewed, Rx sent into patient's pharmacy. documented in this encounterResearch Belton HospitalOsizuksxgu76-51-6187 Telephone encounter Note* Telephone Encounter - VINH Roque - 01/20/2025 8:34 AM EDT Doxepin sent. [facility] HospitalGiujpqauxq38-74-4404 Miscellaneous Notes* Telephone Encounter - VINH Roque - 01/20/2025 8:34 AM EDT Doxepin sent. documented in this encounterResearch Belton HospitalAzwowqnteo34-06-9044 History of Present illness Narrative* Milton Fraire [...] Patient states that she was surfing in [place] when she injured her right ankle and [...] Acute biliary pancreatitis without infection or necrosis (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 Major depressive disorder, recurrent, moderate ([facility]) 08/20/2024 Alcohol use, unspecified with alcohol-induced psychotic disorder, unspecified ([facility]) 09/02/2024 Alcohol withdrawal delirium ([facility]) 09/02/2024 Hypertension 09/02/2024 Sinus tachycardia 09/02/2024 Fall at home 09/10/2024 Extruding suture 09/25/2024 Lumbar radiculopathy 12/09/2024 Generalized anxiety disorder 12/12/2024 Obsessive-compulsive disorder 12/12/2024 Pelvic floor dysfunction 10/11/2024 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) H/O CT scan of chest 07/30/2018 Headache, tension-type 2024 HELLP syndrome ([facility]) History of being hospitalized History of colonoscopy 05/28/2019 History of diagnostic ultrasound 03/23/2018 History of diagnostic ultrasound 12/10/2021 History of esophagogastroduodenoscopy 06/30/2022 History of esophagogastroduodenoscopy 08/31/2022 History of HIDA scan 08/28/2021 History of medical problems 03/18/2020 History of medical problems 08/16/2021 History of medical problems 06/10/2022 Influenza A 05/07/2017 Ingrown toenail 2015 Left ovarian cyst 03/01/2019 Pancreatitis ([facility]) Pap smear for cervical cancer screening 04/20/2022 Post depression Seizures ([facility]) 2002 Medications: Current Outpatient Medications: albuterol (2.5 [...] mg by mouth Daily, Disp: , Rfl: Izsnjxmeaei-Oeplkyxbm-Ywrtii (Trelegy Ellipta) 100-62.5-25 MCG/ACT aerosol powder , [...] < 3 seconds Digits 1-5 bilateral NEURO: Milfay Cullen 5.07 monofilament was intact B/L. Vibratory [...] me p.r.n. JASON Conti documented in this encounterResearch Belton HospitalJymlgwynbe41-24-9038 Telephone encounter Note* Telephone Encounter - BALDO STRONG - 01/13/2025 4:02 PM EDT She would like the steroid sent in. She did use both her inhaler and the nebulizer and still wasn'tfeeling the best. [facility] HospitalRaahwapntc76-03-4211 Miscellaneous Notes* Telephone Encounter - BALDO STRONG - 01/13/2025 4:02 PM EDT She would like the steroid sent in. She did use both her inhaler and the nebulizer and still wasn'tfeeling the best. documented in this encounterResearch Belton HospitalBfovypgiak86-12-5821 History of Present illness Narrative* Giovani Hagen MD - 01/06/2025 11:42 AM EDTAssociated Problem(s): Type 2 diabetes mellitus without complication, without long-term current useof insulin (HCC) Last A1c was 8.5 * Giovani Hagen MD - 01/06/2025 11:35 AM EDTAssociated Problem(s): Chest pain Stress Echo last year from [facility] twice a day * Giovani Hagen [...] yearly wellness. Patient was seen in the [place] ER this morning for having chest pain, [...] tablet Take 20 mg by mouth Daily Oawfrlxxnfr-Iuniijztd-Aqswhe (Trelegy Ellipta) 100-62.5-25 MCG/ACT aerosol powder INHALE [...] cyst 03/01/2019 simple cyst 1.2 cm Pancreatitis ([facility]) Pap smear for cervical cancer screening 04/20/2022 neg Post depression Seizures ([facility]) 2002 Sprain of anterior talofibular ligament of [...] No follow-ups on file. documented in this encounterResearch Belton HospitalVhxqklsscx19-21-3882 NotePatient Education Urology Kidney Stones Kidney stones [...] these instructions at home: Medicines ??? Take zpwm-mgm-mlpmymn and prescription medicines only as told by [...] urine pale yellow. Thi (more content not included)...[facility]09-08-2025 History of Present illness Narrative* Milton Fraire [...] Patient states that she was surfing in [place] when she injured her right ankle and [...] epileptic syndromes, not intractable, without status epilepticus ([facility]) 11/22/2019 Osteoarthritis of knee 06/14/2019 Hypercholesterolemia 07/01/2021 Recurrent UTI 12/12/2022 Vitamin D deficiency 05/16/2019 Dizziness 12/13/2022 Acute nonintractable headache 12/13/2022 History of COVID-19 02/06/2023 Overweight 02/06/2023 Acute biliary pancreatitis without infection or necrosis (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) H/O CT scan of chest 07/30/2018 Headache, tension-type 2024 HELLP syndrome ([facility]) History of being hospitalized History of colonoscopy 05/28/2019 History of diagnostic ultrasound 03/23/2018 History of diagnostic ultrasound 12/10/2021 History of esophagogastroduodenoscopy 06/30/2022 History of esophagogastroduodenoscopy 08/31/2022 History of HIDA scan 08/28/2021 History of medical problems 03/18/2020 History of medical problems 08/16/2021 History of medical problems 06/10/2022 Influenza A 05/07/2017 Ingrown toenail 2015 Left ovarian cyst 03/01/2019 Pancreatitis ([facility]) Pap smear for cervical cancer [...] mg by mouth Daily, Disp: , Rfl: Ndyimatdvih-Npmxszbye-Oevevu (Trelegy Ellipta) 100-62.5-25 MCG/ACT aerosol powder , [...] < 3 seconds Digits 1-5 bilateral NEURO: Milfay Cullen 5.07 monofilament was intact B/L. Vibratory [...] Milton Fraire DPM FACFAS documented in this encounterResearch Belton HospitalTvywauwwqd07-12-4134 Instructions* Patient Instructions* Emma Romero APRN.GAME PROGRAMER - 12/30/2024 9:42 AM EDT Images from [...] sessions. - You can use the website [email or web address] to find a provider closer to your home. I recommend Camilla in [place], as she is approximately 30 minutes from [...] for a physical therapist. documented in this encounterCleveland [facility]09-08-[facility]25 History of Present illness Narrative* Emma Romero APRN.CNP - 12/30/2024 9:00 AM EDT Images from the original note were not included. [facility] SECTION FOR CHRONIC PELVIC PAIN OUTPATIENT VISIT DATE 12/30/2024 OUTPATIENT VISIT TYPE CONSULT REFERRING PROVIDER: Javy Boudreaux MD PRIMARY CARE PROVIDER: Giovani Hagen MD, MD PRIMARY MEDICAL LIBRARY ASSISTANT: Consultation requested by referring provider above for an opinion regarding Orion Harper, and my final recommendations will be communicated back to the requesting physician by way of shared medical record or letter via US mail. Recording using iwi software for draft documentation of the visit was discussed with the patient/authorized inside sales representative; all questions welcomed and answered. Patient/authorized inside sales representative agreed to proceed CHIEF COMPLAINT/REASON [...] is not in contact with those individuals. 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 Cycles: Hysterectomy, Flow: n/a Intermenstrual spotting between periods: N/A Last pap: Pap Results: WNL 03/20/2024, HPV: History of abnormal pap: Yes Short Pump: (MA intake) Dyspareunia: both insertional and deep [...] Pain characteristics: (page 5) Pain started (month/year): 5108-9717 Inciting event: No obvious cause/do not know Onset: Gradual Duration of pain: 2-5 years Character of pain: Sharp, stabbing Wakes from sleep: No Radiation of pain: No Aggravating factors: Short Pump/Sexual contact Alleviating factors: Nothing makes it better Bowel habits: (page 12-13) Nausea/vomiting: endorses Diarrhea: denies Abdominal pain: denies Bloating: denies Constipation: denies Increased pain with bowel movements: denies Blood in stool: endorses Pain with change in frequency of stool: denies Pain with change in appearance of stool: denies Pain changes with bowel movements: denies. 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 The sensitive examination was discussed with the Patient or Patient's Authorized Time Checker. Asapplicable, any other physician, advance practice provider, medical student, or other health professional student that will be observing or involved in the sensitive examination for educational or training purposes was discussed with the Patient or Authorized Time Checker. The Patient or Authorized Time Checker has agreed to proceed with the sensitive [...] instructions to locate a closer provider via [email or web address]. - Educated on pelvic floor anatomy, the [...] with more than 50% of the total cnxb-xd-xihn time of the visit in counseling / [...] socially Drug use: Never documented in this encounterCleveland Clinic Eucl[facility] Hospital09-08-2025 NoteHNO ID: [id number] Author: EMMA ROMERO APRN.CNP Service: ? Author Type: Nurse Practitioner Type: Progress Notes Filed: 12/30/2024 10:35 Note Text: [facility] SECTION FOR CHRONIC PELVIC PAIN OUTPATIENT VISIT DATE 12/30/2024 OUTPATIENT VISIT TYPE CONSULT REFERRING PROVIDER: Javy Boudreaux MD PRIMARY CARE PROVIDER: Giovani Hagen MD, MD PRIMARY MEDICAL LIBRARY ASSISTANT: Consultation requested by referring provider above for an opinion regarding Orion Harper, and my final recommendations will be communicated back to the requesting physician by way of shared medical record or letter via US mail. Recording using iwi software for draft documentation of the visit was discussed with the patient/authorized inside sales representative; all questions welcomed and answered. Patient/authorized inside sales representative agreed to proceed CHIEF COMPLAINT/REASON [...] is not in contact with those individuals. 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 Cycles: Hysterectomy, Flow: n/a Intermenstrual spotting between periods: N/A Last pap: Pap Results: WNL 03/20/2024, HPV: History of abnormal pap: Yes Short Pump: (MA intake) Dyspareunia: both insertional and deep [...] Pain characteristics: (page 5) Pain started (month/year): 5029-8882 Inciting event: No obvious cause/do not know Onset: Gradual Duration of pain: 2-5 years Character of pain: Sharp, stabbing Wakes from sleep: No Radiation of pain: No Aggravating factors: Short Pump/Sexual contact Alleviating factors: Nothing makes it better Bowel habits: (page 12-13) Nausea/vomiting: endorses Diarrhea: denies Abdominal pain: denies Bloating: denies Constipation: denies Increased pain with bowel movements: denies Blood in stool: endorses Pain with change in frequency of stool: (more content not included)...[facility]09-04-2025 History of Present illness Narrative* Jatin [...] chipping her ankle again while surfing in [place]. Despite receiving foursteroid injections, she continues to [...] for Trileptal will be sent to [facility] in [place]. 2. Ankle pain. The patient reports persistent [...] BID. This clinical note was created utilizing Tracsis documentation system. All information has beenthoroughly reviewed, corrected as necessary, and authenticated by the provider to ensure accuracy and completeness. On occasion, Tracsis documentation system erroneously drops words or replaces aspoken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 AM EDT SUBJECTIVE: Oriontuyet Harper is a 33 year old female Patient presents with: Vaginal Problem: Pt presents today for consult - painful intercourse Referred here by her BASIC ACOUSTIC ANALYST at [place]. Has been having pain with intercourse for [...] - PELVIC US WHI - CONSULT TO BASIC ACOUSTIC ANALYST PELVIC PAIN 2. Pelvic pain in female - ICD9: 625.9, ICD10: R10.2 - counseled. - PELVIC US WHI - CONSULT TO BASIC ACOUSTIC ANALYST PELVIC PAIN Javy Boudreaux MD Medical Decision Making: Problems: Moderate: New problem with uncertain prognosis Data: Unique test(s) ordered: 2 Risk: Low: Low risk from testing/treatment Medical Decision Making Level: 3 - Low documented in this encounterC[facility]03-[facility]-2025 History of Present illness Narrative* Giovani [...] No follow-ups on file. documented in this encounterResearch Belton HospitalCjdvulfbir41-36-7424 History of Present illness Narrative* Milton Fraire [...] in 2 JASON Conti documented in this encounterResearch Belton HospitalKvkjcvhjyi34-88-8636 History of Present illness Narrative* JASON Conti [...] for reassessment JASON Conti documented in this encounterResearch Belton HospitalFlxfacosux46-97-2046 History of Present illness Narrative* Acacia Vigil LPN - 06/25/2024 2:20 PM EST Reason for Appointment: Patient ID: Orion Harper is a 33 y.o. female who presents for Painful Short Pump and bleeding with intercourse Patient presents today [...] deficit hyperactivity disorder (ADHD), predominantly inattentive type ([facility]/HCC) 09/23/2022 Bipolar disorder, in partial [...] Poor concentration 09/23/2022 Sacroiliitis, not elsewhere classified ([facility]) 09/23/2022 Skin pain 09/23/2022 Thyroid enlargement ([facility]) 09/23/2022 Atherosclerosis of aorta ([facility]) 06/16/2020 Atherosclerosis of both carotid arteries 11/16/2020 Atherosclerosis of coronary artery without angina pectoris ([facility]) 05/18/2021 Gastroesophageal reflux disease without esophagitis 07/09/2019 Gastroparesis 11/02/2022 Non-refractory idiopathic generalized epilepsy ([facility]) 11/22/2019 Osteoarthritis of knee 06/14/2019 Hypercholesterolemia ([facility]) 07/01/2021 Recurrent UTI 12/12/2022 Vitamin D deficiency 05/16/2019 Dizziness 12/13/2022 Acute nonintractable headache 12/13/2022 History of COVID-19 02/06/2023 Overweight 02/06/2023 Acute biliary pancreatitis without infection or necrosis 03/21/2023 Calculus of gallbladder without cholecystitis without obstruction 03/23/2023 Cholecystitis 04/18/2023 Encounter for postoperative care 04/18/2023 History of acute pancreatitis 04/18/2023 History of cholecystectomy 04/18/2023 Cough 04/18/2023 Anaphylactic syndrome 04/18/2023 PTSD (post-traumatic stress disorder) ([facility]) 02/24/2015 Tinea 10/03/2023 Weight gain 10/03/2023 Glucose intolerance 10/03/2023 Dyshidrosis 10/03/2023 Encounter for well adult exam without abnormal findings 12/04/2023 Cervical radiculopathy 12/26/2023 Obesity (BMI 35.0-39.9 without comorbidity) 02/06/2024 Localized edema 02/06/2024 Injury of right ankle 02/06/2024 Sprain of anterior talofibular ligament of right ankle 04/01/2024 Pain and swelling of left shoulder 04/03/2024 Asthmatic bronchitis with acute exacerbation ([facility]) 04/16/2024 Snoring 04/16/2024 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 Patient to use Coconut oil in the interm, as triple antibiotics will not be prescribed as to not cause c-diff again for patient. Patient to RTC for annual and PRN. Documented by Acacia Vigil LPN on behalf of: Darwin Starr DO documented in this encounterResearch Belton HospitalElcknidngr53-35-4838 History of Present illness Narrative* Prateek Pitts DPM - 06/19/2024 2:30 PM EST Patient: [...] the morning., Disp: 45 tablet, Rfl: 2 Dgwmghzuzxb-Suamubyeg-Jefppp 100-62.5-25 MCG/ACT aerosol powder , Inhale 1 [...] future. Prateek Pitts DPM documented in this encounterResearch Belton HospitalArdfstovpv69-45-0118 Telephone encounter Note* Telephone Encounter - VINH Roque - 06/19/2024 10:18 AM EST OARRS reviewed, Rx sent into patient's pharmacy. [facility] Belton HospitalTvqusrkqtt69-19-5326 Miscellaneous Notes* Telephone Encounter - VINH Roque - 06/19/2024 10:18 AM EST OARRS reviewed, Rx sent into patient's pharmacy. documented in this encounterNONorthwest Medical CenterJpwztdxowh27-72-1036 Telephone encounter Note* Telephone Encounter - JASON Conti - 06/12/2024 10:56 PM EST The prescription has been sent to the pharmacy. Thank you. [facility] Dxjgcmskxa23-19-2473 Miscellaneous Notes* Telephone Encounter - JASON Conti - 06/12/2024 10:56 PM EST The prescription has been sent to the pharmacy. Thank you. 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 The drive is a [place] way 1hr and 40 minutes. 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 When gets around people doesn't like to be asked questions and doesn't like to be put on the spot. 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 Bipolar well managed Anxiety Presents for follow-up [...] time for 1 dose 1 each 2 Gbnwhxslkgm-Wvdltlwoc-Tcwzzk 100-62.5-25 MCG/ACT aerosol powder Inhale 1 puff [...] 4 weeks (around 07/04/2024). documented in this encounterResearch Belton HospitalPvbocwjpii07-09-8397 History of Present illness Narrative* VINH Sibley [...] escitalopram (LEXAPRO) 20 mg, Oral, Every morning Heblcjlnryn-Uibfyrrjf-Ugxnrd 100-62.5-25 MCG/ACT aerosol powder 1 puff, Inhalation, [...] Attention deficit hyperactivity disorder, predominantly inattentive type ([facility]/HCC) 09/23/2022 Bipolar disorder, in partial remission, most recent episode manic ([facility]) 09/23/2022 Diverticular disease of colon 09/23/2022 Dysphagia 09/23/2022 Elevated liver enzymes 09/23/2022 Exercise induced bronchospasm ([facility]) 09/23/2022 Finding of above normal blood pressure 09/23/2022 History of hysterectomy 09/23/2022 Hyperglycemia 09/23/2022 Hypersexuality 09/23/2022 Insomnia 09/23/2022 Irritable bowel syndrome with constipation 09/23/2022 Mild intermittent asthma without complication ([facility]/HCC) 09/23/2022 Mood swings 09/23/2022 Nephrolithiasis 09/23/2022 Nonalcoholic steatohepatitis (ENGLISH) 09/23/2022 Other specified abnormal findings of blood chemistry 09/23/2022 Poor concentration 09/23/2022 Sacroiliitis, not elsewhere classified ([facility]) 09/23/2022 Skin pain 09/23/2022 Thyroid enlargement ([facility]) 09/23/2022 Atherosclerosis of aorta ([facility]) 06/16/2020 Atherosclerosis of both carotid arteries 11/16/2020 Atherosclerosis of coronary artery without angina pectoris ([facility]) 05/18/2021 Gastroesophageal reflux disease without esophagitis 07/09/2019 Gastroparesis 11/02/2022 Non-refractory idiopathic generalized epilepsy ([facility]) 11/22/2019 Osteoarthritis of knee 06/14/2019 Hypercholesterolemia ([facility]) 07/01/2021 Recurrent UTI 12/12/2022 Vitamin D deficiency 05/16/2019 Dizziness 12/13/2022 Acute nonintractable headache 12/13/2022 History of COVID-19 02/06/2023 Overweight 02/06/2023 Acute biliary pancreatitis without infection or necrosis 03/21/2023 Calculus of gallbladder without cholecystitis without obstruction 03/23/2023 Cholecystitis 04/18/2023 Encounter for postoperative care 04/18/2023 History of acute pancreatitis 04/18/2023 History of cholecystectomy 04/18/2023 Cough 04/18/2023 Anaphylactic syndrome 04/18/2023 PTSD (post-traumatic stress disorder) ([facility]) 02/24/2015 Tinea 10/03/2023 Weight gain 10/03/2023 Glucose intolerance 10/03/2023 Dyshidrosis 10/03/2023 Encounter for well adult exam without abnormal findings 12/04/2023 Cervical radiculopathy 12/26/2023 Obesity (BMI 35.0-39.9 without comorbidity) 02/06/2024 Localized edema 02/06/2024 Injury of right ankle 02/06/2024 Sprain of anterior talofibular ligament of right ankle 04/01/2024 Pain and swelling of left shoulder 04/03/2024 Asthmatic bronchitis with acute exacerbation ([facility]) 04/16/2024 Snoring 04/16/2024 Resolved Ambulatory [...] having a diagnostic laparoscopy performed at [facility] with Dr. Starr.results was reviewed with the patient and all restrictions have been lifted. Follow Up: Patient is to return to the office for annual exam unless needed otherwise. Documented by VINH Sibley on behalf of: VINH Sibley documented in this encounterResearch Belton HospitalToprocsthy49-04-5790 Telephone encounter Note* Telephone Encounter - Benito [...] and precautions to follow Carol Winn MD [facility]01-30-2025 Miscellaneous Notes* Telephone Encounter - Benito Prince [...] follow Carol Winn MD documented in this encounterCleveland Clinic [facility]01-29-2025 History and physical note * Carol [...] DATE: May 22, 2024 TIME: 1:39 PM [facility] Work Phone: 1(120) 788-312601-29-2025 History and physical note* Carol Winn MD [...] 2024 TIME: 1:39 PM documented in this encounterCleveland Clinic [facility]01-29-2025 Nurse Note* Lindsey Buckley RN - [...] Lindsey Buckley RN In Department: AMBULATORY SURGERY [facility]01-29-2025 Nurse Note* Lindsey Buckley RN - [...] In Department: AMBULATORY SURGERY documented in this encounterCleveland Clinic [facility]01-22-2025 Telephone encounter Note * Telephone Encounter - Rose Jarvis - 05/15/2024 3:56 PM EST Appts cxl, surgery notified to cxl. [facility]01-22-2025 Miscellaneous Notes* Telephone Encounter - Rose [...] time. Lydia Kelley DO documented in this encounterCleveland Clinic Eucl[facility] Hospital01-22-2025 History of Present illness Narrative* Milton Frarie DPM FACFAS - 05/15/2024 8:30 AM EST [...] attenuation of the anterior talofibular [place] [address] Magnetic Resonance Report Signed Patient: ORION HARPER MR#: [id number] : 1990 Acct:[id number] Age/Sex: 33 / F ADM Date: 03/14/24 Loc: MRI Attending Dr: Laurie Navas M.D. Ordering Physician: Laurie Navas M.D. Date of Service: 03/14/24 Procedure(s): MR ankle RT wo con Accession Number(s): [id number] cc: GIOVANI HAGEN ; Laurie Navas M.D. [place] [address] Patient Name: ORION HARPER MRN: [facility]:[id number] date: 1990 Sex: F Assigned Patient Location: MRI Current Patient Location: Accession/Order Number: [id number] Exam Date: 03/14/2024 15:04 Report Date: 03/17/2024 [...] THE MORNING, Disp: 30 tablet, Rfl: 2 Nikopkrccuh-Efagrbftc-Joaydv 100-62.5-25 MCG/ACT aerosol powder , Inhale 1 [...] are palpable bilateral, no edema noted Neuro: Milfay-Cullen 5.07 monofilament intact, vibratory sensation intact Derm: [...] above-stated procedure. JASON Conti documented in this encounterResearch Belton HospitalZkjpfzsujo67-20-2931 Telephone encounter Note* Telephone Encounter - VINH Roque - 05/10/2024 12:10 PM EST Pt was seen. OARRS reviewed, Rx sent into patient's pharmacy. [facility] Lfxefvroyn28-42-6527 Miscellaneous Notes* Telephone Encounter - VINH Roque - 05/10/2024 12:10 PM EST Pt was seen. OARRS reviewed, Rx sent into patient's pharmacy. * Telephone Encounter - VINH Roque - 05/09/2024 1:07 PM EST Patient has appointment today. documented in this encounterResearch Belton HospitalVohjapwitd53-94-2279 History of Present illness Narrative* Giovani Hagen [...] DAY IN THE MORNING 30 tablet 2 Kcratdaostb-Phzgbehsq-Pqbdqk 100-62.5-25 MCG/ACT aerosol powder Inhale 1 puff [...] of spine - Primary Relevant Medications HYDROcodone-acetaminophen ([place]) 5-325 MG tablet Other Relevant Orders Ambulatory referral to Pain Medicine No follow-ups on file. documented in this encounterResearch Belton HospitalJxvhewgecg38-61-3219 Telephone encounter Note* Telephone Encounter - VINH Roque - 05/09/2024 1:07 PM EST Patient has appointment today. [facility] HospitalJmjqesmtsa63-07-5658 History of Present illness Narrative* Prateek Pitts [...] THE MORNING, Disp: 30 tablet, Rfl: 2 Oxfpgydpuid-Hhkwceatk-Qvcfii 100-62.5-25 MCG/ACT aerosol powder , Inhale 1 [...] 0 min Stress: Stress Concern Present (04/18/2023) [employer] - Occupational Stress Questionnaire Feeling of Stress : Very much Social Connections: Moderately Integrated (04/18/2023) Social Connection and Isolation Panel [NHANES] Frequency of Communication with Friends and Family: Three times a week Frequency of Social Gatherings with Friends and Family: Twice a week Attends [employer]ze Services: Never Active Member of Clubs or [...] base of the right foot MRI: [place] [address] Magnetic Resonance Report Signed Patient: ORION HARPER MR#: [id number] : 1990 Acct:[id number] Age/Sex: 33 / F ADM Date: 03/14/24 Loc: MRI Attending Dr: Laurie Navas M.D. Ordering Physician: Laurie Navas M.D. Date of Service: 03/14/24 Procedure(s): MR ankle RT wo con Accession Number(s): [id number] cc: GIOVANI HAGEN ; Laurie Navas M.D. [facility] [place] [address] Patient Name: ORION HARPER MRN: [facility]:[id number] date: 1990 Sex: F Assigned Patient Location: MRI Current Patient Location: Accession/Order Number: [id number] Exam Date: 03/14/2024 15:04 Report Date: 03/17/2024 [...] warranted. Prateek Pitts DPM documented in this encounterResearch Belton HospitalVnjkpjdsrj06-10-2344 Telephone encounter Note* Telephone Encounter - Criss Mccrary - 05/06/2024 1:40 PM EST Echo was faxed to Anne-Marie @ [phone] & scanned into outside ep. Patient is having a procedure. Criss Mccrary [facility]01-13-2025 Miscellaneous Notes* Telephone Encounter - Criss Holm - 05/06/2024 1:40 PM EST Echo was faxed to Anne-Marie @ [phone] & scanned into outside ep. Patient is having a procedure. Criss Mccrary documented in this encounterCleveland [facility] Telephone encounter Note * Telephone Encounter [...] seen at that time. Lydia Kelley DO [facility]01-09-2025 NoteHNO ID: [id number] Author: ZEHRA GRAY PA-C Service: ? Author Type: Physician Induction Furnace Operator Type: Progress Notes Filed: 05/02/2024 11:34 [...] Int J Clin Exp Med. 2015 Jan 15;8(10):20807-58. PMID: 00756276; PMCID: [id number]. Ruthann Bob, Juan MEEK, Rico M, Cosmo F, Tawnya J, Everardo O, Leyla F, Franci M, Alejandro G, Dorie A, Gianna E, Leyla L, French Mcgovern, Kashmir A, Vicente U, Jodi S, Franc P, Max V, Last V, Leena M, Neo MARIE. Refining the Baveno elastography criteria for the definition of compensated advanced chronic liver disease. J Hepatol. 2020;74(5):6687-1248. doi: 10.1016/j.jhep.2020.11.050. Epub 2019Apr 01. PMID: 34163734. Izabel Bob, Chastity Moran, Martha Bob, Xiao Bob, Joon S, Nuria Roth, Trevin Roth, Trixie Kendrick. AASLD practice guidance on the clinical assessment and management of nonalcoholic fatty liver disease. Hepatology. 2022;77(5):2734-0784. doi:10.1097/HEP.4574130624893910TnipukjtbOhiohealth [facility]in [facility] 05-[facility]24 History of Present illness Narrative* [...] and referral to hepatology. Zehra Gray PA-C [facility] Fibroscan Fibrosis Risk <7 kPA = [...] Int J Clin Exp Med. 2015 Jan 15;8(10):18385-67.PMID: 51159577; PMCID: [id number]. Ruthann Bob, Juan FANTASMA, Rico M, Cosmo F, Tawnya J, Everardo O, Leyla F, Franci M, Alejandro G, Dorie A, Gianna E, Leyla L, French G, Kashmir A, Vicente U, Jodi S, Jordan, Max V, de Kole V, Pinalex M, Neo EA. Refining the Baveno elastography criteria for the definition of compensated advanced chronic liver disease. J Hepatol. 2020;74(5):3177-5914. doi: 10.1016/j.jhep.2020.11.050. Epub 2019Apr 01. PMID: 91623867. Izabel Bob, Chastity B, Martha Bob, Xiao Bob, Joon S, Nuria Roth, Trevin Roth, Trixie Kendrick.AASLD practice guidance on the clinical assessment and management of nonalcoholic fatty liver disease. Hepatology. 2022;77(5):1797- 1835. doi:10.1097/HEP.[id number] documented in this encounterCleveland Clinic [facility]ucl[facility]01-07-[facility] History of Present illness Narrative* Sandy [...] on 05/23/[address] Starr at [facility]. MEDICATIONS Current Outpatient Medications Medication [...] escitalopram (LEXAPRO) 20 mg, Oral, Every morning Fufpyhfbqnu-Txwishnsn-Elzxsq 100-62.5-25 MCG/ACT aerosol powder 1 puff, Inhalation, [...] Attention deficit hyperactivity disorder, predominantly inattentive type ([facility]) 09/23/2022 Bipolar disorder, in partial remission, most recent episode manic ([facility]) 09/23/2022 Diverticular disease of colon 09/23/2022 Dysphagia 09/23/2022 Elevated liver enzymes 09/23/2022 Exercise induced bronchospasm ([facility]) 09/23/2022 Finding of above normal blood pressure 09/23/2022 History of hysterectomy 09/23/2022 Hyperglycemia 09/23/2022 Hypersexuality 09/23/2022 Insomnia 09/23/2022 Irritable bowel syndrome with constipation 09/23/2022 Mild intermittent asthma without complication ([facility]) 09/23/2022 Mood swings 09/23/2022 Nephrolithiasis 09/23/2022 Nonalcoholic steatohepatitis (ENGLISH) 09/23/2022 Other specified abnormal findings of blood chemistry 09/23/2022 Poor concentration 09/23/2022 Sacroiliitis, not elsewhere classified ([facility]) 09/23/2022 Skin pain 09/23/2022 Thyroid enlargement ([facility]) 09/23/2022 Atherosclerosis of aorta ([facility]) 06/16/2020 Atherosclerosis of both carotid arteries 11/16/2020 Atherosclerosis of coronary artery without angina pectoris ([facility]) 05/18/2021 Gastroesophageal reflux disease without esophagitis 07/09/2019 Gastroparesis 11/02/2022 Non-refractory idiopathic generalized epilepsy ([facility]) 11/22/2019 Osteoarthritis of knee 06/14/2019 Hypercholesterolemia ([facility]) 07/01/2021 Recurrent UTI 12/12/2022 Vitamin D deficiency 05/16/2019 Dizziness 12/13/2022 Acute nonintractable headache 12/13/2022 History of COVID-19 02/06/2023 Overweight 02/06/2023 Acute biliary pancreatitis without infection or necrosis 03/21/2023 Calculus of gallbladder without cholecystitis without obstruction 03/23/2023 Cholecystitis 04/18/2023 Encounter for postoperative care 04/18/2023 History of acute pancreatitis 04/18/2023 History of cholecystectomy 04/18/2023 Cough 04/18/2023 Anaphylactic syndrome 04/18/2023 PTSD (post-traumatic stress disorder) ([facility]) 02/24/2015 Tinea 10/03/2023 Weight gain 10/03/2023 Glucose intolerance 10/03/2023 Dyshidrosis 10/03/2023 Encounter for well adult exam without abnormal findings 12/04/2023 Cervical radiculopathy 12/26/2023 Obesity (BMI 35.0-39.9 without comorbidity) 02/06/2024 Localized edema 02/06/2024 Injury of right ankle 02/06/2024 Sprain of anterior talofibular ligament of right ankle 04/01/2024 Pain and swelling of left shoulder 04/03/2024 Asthmatic bronchitis with acute exacerbation ([facility]) 04/16/2024 Snoring 04/16/2024 Resolved Ambulatory [...] nursing note reviewed. Exam conducted with a cadd drafter present. Vitals: Estimated body mass index is [...] reviewed, and patient is to proceed to [facility] OR. Follow Up: Patient is to follow up between 1-2 weeks post operative to assess proper healing and recovery fromprocedure. Documented by Sandy Toribio LPN on behalf of: Darwin Starr DO documented in this encounterResearch Belton HospitalTwgivyrnja20-78-2850 History of Present illness Narrative* Iliana Mercado [...] she saw Dr. Hylton in 2021 in [facility]. 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 Hylton who is guest specialist We discussed seeing endocrinology to help [...] -Fibroscan Iliana Mercado PA-C documented in this encounterCleveland Clinic Eucl[facility]01-03-2025 NoteHNO ID: [id number] Author: ILIANA MERCADO PA-C Service: ? Author Type: Physician Induction Furnace Operator Type: Progress Notes Filed: 04/26/2024 15:02 [...] she saw Dr. Hylton in 2021 in [facility]. 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 Hylton who is guest specialist We discussed seeing endocrinology to help [...] Narrative I have pers (more content not included)...[facility]01-03-[facility] Instructions* Patient Instructions* Iliana Mercado PA-C [...] do not hesitate to send me a Holidu message or call. Iliana Mercado PA-C documented in this encounterCleveland Clinic [facility]01-03-2025 NoteHNO ID: [id number] Author: LYDIA KELLEY DO Service: ? Author Type: Physician Type: Progress Notes Filed: 05/09/2024 13:33 Note Text: Reason for Visit/Chief Complaint Orion Haprer is a 33 year old female who [...] return to discuss consent (more content not included)...[facility]01-03[facility] History of Present illness Narrative* Lydia [...] Lydia Kelley D.O. M.P.HRajesh documented in this encounterCleveland Clinic [facility]ucl[facility]12-30-2024 Telephone encounter Note * Telephone Encounter - BALDO STRONG - 04/22/2024 9:58 AM EST Patient states she was seen in office on 04-16 and then later in the week she ended up at the Urgent Care due to her cough. She would like Eva Santos called in for her cough. Research [facility]ton HospitalRlfgmfkndu49-62-4148 Miscellaneous Notes* Telephone Encounter - BALDO STRONG - 04/22/2024 9:58 AM EST Patient states she was seen in office on 04-16 and then later in the week she ended up at the Urgent Care due to her cough. She would like Evagilberto Santos called in for her cough. documented in this encounterResearch Belton HospitalPsrvrvhvev12-91-9122 History of Present illness Narrative* Josephine Gilman NP - 04/18/2024 4:35 PM EST Images from the original note were not included. [address] , [address] [facility], [address] P: [phone] F: [phone] [facility] Historian of HPI: patient Orion Harper is [...] 20 tablet; Refill: 0 documented in this encounterResearch Belton HospitalSvaznkejxp05-01-2039 Telephone encounter Note* Telephone Encounter - Solo [...] she is unable to do the treadmill [facility] Work Phone: [phone]) 641-430612-16-2024 Miscellaneous Notes* Telephone Encounter - Solo Carty [...] to do the treadmill documented in this encounterCleveland Clinic Eucl[facility] Hospital12-13-2024 Telephone encounter Note * Telephone Encounter - Criss Mccrary - 04/05/2024 1:01 PM EST Outside ep I have a copy @ my desk Criss Mccrary [facility]12-13-2024 Miscellaneous Notes* Telephone Encounter - Criss Holm - 04/05/2024 1:01 PM EST Outside ep I have a copy @ my desk Criss Mccrary documented in this encounterCleveland Clinic Euclid Hospital12-11-2024 History of Present illness Narrative* Deena [...] DAY IN THE MORNING 30 tablet 2 Okjlhduyhyv-Aeeucidxf-Lpfsvk 100-62.5-25 MCG/ACT aerosol powder INHALE 1 PUFF [...] No follow-ups on file. documented in this encounterResearch Belton HospitalWwqiftqodt96-27-0222 Telephone encounter Note* Telephone Encounter - DemetraCriss - 04/02/2024 3:50 PM EST This 'Ankle Surgery Clearance' was faxed over to Dr. Giovani Hagen (PCP) @ [phone] for signing. I spoke with the patient. Scanned into outside ep. Criss Mccrary [facility]12-10-2024 Miscellaneous Notes* Telephone Encounter - Criss Holm - 04/02/2024 3:50 PM EST This 'Ankle Surgery Clearance' was faxed over to Dr. Giovani Hagen (PCP) @ [phone] for signing. I spoke with the patient. Scanned into outside ep. Criss Mccrary documented in this encounterCleveland Clinic Eucl[facility] Hospital12-09-2024 Miscellaneous Notes* Telephone Encounter - Keri [...] follow up with Dr. Hylton who is guest specialist We discussed seeing endocrinology to help with weight loss and insulin resistance We also discussed cutting back on ETOH to one drink a week (currently 3-4 drinks a week) Did she follow up with Dr. Hylton? She can schedule OV with me if she prefers * Telephone Encounter - Connie Lucas RN - 03/29/2024 10:[address] Dakhil, Pt JESSE Dx Fatty Liver, Liver Disease PT sent MYC message requesting a follow up labs show elevated LFTs and wanted them reviewed Please advise Thanks, Connie Lucas RN contains abnormal data [facility] LIVER PANEL Component Ref Range & [...] ALBUMIN GLOBULIN RATIO 1.3 ontains abnormal data [facility] LIVER PANEL Component Ref Range & [...] - 29 U/L 72 High Lipase Order: [id number] Component Ref Range & Units 1 yr ago Lipase 13 - 60 U/L 260 High Hepatic Function Panel Order: [id number] Component Ref Range & Units 1 yr [...] g/dL 5.7 Low Hepatic Function Panel Order: [id number] Component Ref Range & Units 1 yr [...] ntains abnormal data COMPREHENSIVE METABOLIC PANEL Order: [id number] Component Ref Range & Units 1 yr [...] Filt Rate >60 mL/min/1.73m2 >60 Lipase Order: [id number] Component Ref Range & Units 1 yr [...] follow up with Dr. Hylton who is guest specialist We discussed seeing endocrinology to help [...] FRONTAL/LAT Carol Winn MD documented in this encounterCleveland Clinic [facility] Hospital12-09-2024 Telephone encounter Note * Telephone Encounter - Keri Jamil - 04/01/2024 11:18 AM EST Pt called to schedule, per message below. First Est slot is July 26 for VV. Please review and advise if a New Pt slot can be used for this Pt. Thank you, [facility]12-09-2024 History of Present illness Narrative* Giovani [...] DAY IN THE MORNING 30 tablet 2 Zymcldhwfce-Sknnxsmxk-Iojxkv 100-62.5-25 MCG/ACT aerosol powder INHALE 1 PUFF [...] No follow-ups on file. documented in this encounterResearch Belton HospitalHwpvowzbls51-73-0957 Telephone encounter Note* Telephone Encounter - Carol Winn MD - 03/29/2024 9:06 PM EST I saw her in the past for this Per my note, Was seen by Dr. Hylton locally Will obtain labs and fibroscan results She had Nausea and vomiting with statin Couldn't tolerate metformin due to nausea/vomiting and diarrhea She can still follow up with Dr. Hylton who is guest specialist We discussed seeing endocrinology to help with weight loss and insulin resistance We also discussed cutting back on ETOH to one drink a week (currently 3-4 drinks a week) Did she follow up with Dr. Hylton? She can schedule OV with me if she prefers [facility] Work Phone: [phone] 298-998912-06-2024 Telephone encounter Note* Telephone Encounter - Connie Lucas RN - 03/29/2024 10:[address] Winn, Pt JESSE Dx Fatty Liver, Liver Disease PT sent MYC message requesting a follow up labs show elevated LFTs and wanted them reviewed Please advise Thanks, Connie Lucas RN contains abnormal data [facility] LIVER PANEL Component Ref Range & [...] ALBUMIN GLOBULIN RATIO 1.3 ontains abnormal data [facility] LIVER PANEL Component Ref Range & [...] - 29 U/L 72 High Lipase Order: [id number] Component Ref Range & Units 1 yr ago Lipase 13 - 60 U/L 260 High Hepatic Function Panel Order: [id number] Component Ref Range & Units 1 yr [...] g/dL 5.7 Low Hepatic Function Panel Order: [id number] Component Ref Range & Units 1 yr [...] ntains abnormal data COMPREHENSIVE METABOLIC PANEL Order: [id number] Component Ref Range & Units 1 yr [...] Filt Rate >60 mL/min/1.73m2 >60 Lipase Order: [id number] Component Ref Range & Units 1 yr [...] follow up with Dr. Hylton who is guest specialist We discussed seeing endocrinology to help [...] XR CHEST 2V FRONTAL/LAT Carol Winn MD [facility]12-04-2024 Telephone encounter Note* Telephone Encounter - VINH Roque - 03/27/2024 1:03 PM EST OARRS reviewed, Rx sent into patient's pharmacy. [facility] HospitalHxzolyuwcm89-06-9230 Miscellaneous Notes* Telephone Encounter - VINH Roque - 03/27/2024 1:03 PM EST OARRS reviewed, Rx sent into patient's pharmacy. * Telephone Encounter - Monet Motley MA - 03/27/2024 12:35 PM EST Per hieu to increase tramadol 50mg 2 po every 6 prn documented in this encounterResearch Belton HospitalDdqgmzbcmr12-55-2342 Telephone encounter Note* Telephone Encounter - Monet Motley MA - 03/27/2024 12:35 PM EST Per hieu to increase tramadol 50mg 2 po every 6 prn [facility] HospitalFptwxfklwz28-97-2249 Telephone encounter Note* Telephone Encounter - Giovani Hagen MD - 03/25/2024 3:59 PM EST Images from the original note were not included. Patient: Orion Harper : 1990 PCP: Giovani Hagen MD Orion Harper is a 33 y.o. female presenting today for follow-up after being discharged from [facility] 10 days ago. The main problem requiring [...] Row Patient Outreach from 01/17/2024 in [facility] with [facility] Information Discharge Date 01/10/24 Discharged To: Home Setting Discharge Hospital [facility] Engagement Call Start Time 1232 [...] End Time 1233 No follow-ups on file. [facility] HospitalDvqcaqxalu26-24-5786 Miscellaneous Notes* Telephone Encounter - Giovani Hagen MD - 03/25/2024 3:59 PM EST Images from the original note were not included. Patient: Orion Harper : 1990 PCP: Giovani Hagen MD Orion Harper is a 33 y.o. female presenting today for follow-up after being discharged from [facility] 10 days ago. The main problem requiring [...] Row Patient Outreach from 01/17/2024 in [facility] with [facility] Information Discharge Date 01/10/24 Discharged To: Home Setting Discharge Hospital [facility] Engagement Call Start Time 1232 [...] are in the chart. documented in this encounterResearch Belton HospitalUvgouthvmv88-66-6226 Telephone encounter Note* Telephone Encounter - BALDO STRONG - 03/25/2024 1:02 PM EST Patient called asking about the results of her MRI, please advise. Results are in the chart. [facility] HospitalSdjigwlxsm35-05-3119 History of Present illness Narrative* Sandy Toribio [...] escitalopram (LEXAPRO) 20 mg, Oral, Every morning Eldhsrhcpyc-Fjfcthiop-Ormdnz 100-62.5-25 MCG/ACT aerosol powder INHALE 1 PUFF [...] Attention deficit hyperactivity disorder, predominantly inattentive type ([facility]) 09/23/2022 Bipolar disorder, in partial remission, most recent episode manic ([facility]) 09/23/2022 Diverticular disease of colon 09/23/2022 Dysphagia 09/23/2022 Elevated liver enzymes 09/23/2022 Exercise induced bronchospasm ([facility]) 09/23/2022 Finding of above normal blood pressure 09/23/2022 History of hysterectomy 09/23/2022 Hyperglycemia 09/23/2022 Hypersexuality 09/23/2022 Insomnia 09/23/2022 Irritable bowel syndrome with constipation 09/23/2022 Mild intermittent asthma without complication ([facility]) 09/23/2022 Mood swings 09/23/2022 Nephrolithiasis 09/23/2022 Nonalcoholic steatohepatitis (ENGLISH) 09/23/2022 Other specified abnormal findings of blood chemistry 09/23/2022 Poor concentration 09/23/2022 Sacroiliitis, not elsewhere classified ([facility]) 09/23/2022 Skin pain 09/23/2022 Thyroid enlargement ([facility]) 09/23/2022 Atherosclerosis of aorta ([facility]) 06/16/2020 Atherosclerosis of both carotid arteries 11/16/2020 Atherosclerosis of coronary artery without angina pectoris ([facility]) 05/18/2021 Gastroesophageal reflux disease without esophagitis 07/09/2019 Gastroparesis 11/02/2022 Non-refractory idiopathic generalized epilepsy ([facility]) 11/22/2019 Osteoarthritis of knee 06/14/2019 Hypercholesterolemia ([facility]) 07/01/2021 Recurrent UTI 12/12/2022 Vitamin D deficiency 05/16/2019 Dizziness 12/13/2022 Acute nonintractable headache 12/13/2022 History of COVID-19 02/06/2023 Overweight 02/06/2023 Acute biliary pancreatitis without infection or necrosis 03/21/2023 Calculus of gallbladder without cholecystitis without obstruction 03/23/2023 Cholecystitis 04/18/2023 Encounter for postoperative care 04/18/2023 History of acute pancreatitis 04/18/2023 History of cholecystectomy 04/18/2023 Cough 04/18/2023 Anaphylactic syndrome 04/18/2023 PTSD (post-traumatic stress disorder) ([facility]) 02/24/2015 Tinea 10/03/2023 Weight gain [...] Abnormal LFTs Abnormal liver ultrasound 06/15/2022 Asthma ([facility]) COVID 03/11/2021 Delayed gastric emptying [...] nursing note reviewed. Exam conducted with a cadd drafter present. Vitals: Estimated body mass index is [...] of: Darwin Starr DO documented in this encounterResearch Belton HospitalImczgaqymr64-91-9196 Telephone encounter Note* Telephone Encounter - VINH Roque - 03/07/2024 11:20 AM EST OARRS reviewed, Rx sent into patient's pharmacy. [facility] Mfmogywyle10-09-4568 Miscellaneous Notes* Telephone Encounter - VINH Roque - 03/07/2024 11:20 AM EST OARRS reviewed, Rx sent into patient's pharmacy. documented in this encounterResearch Belton HospitalYunnsqlvur63-35-4072 Telephone encounter Note* Telephone Encounter - VINH Roque - 03/07/2024 9:14 AM EST OARRS reviewed, Rx sent into patient's pharmacy. [facility] HospitalUozmdnpitt52-47-6023 Miscellaneous Notes* Telephone Encounter - VINH Roque - 03/07/2024 9:14 AM EST OARRS reviewed, Rx sent into patient's pharmacy. * Telephone Encounter - Sasha Ng - 03/06/2024 4:22 PM EST ALPRAZolam (Xanax) 0.5 MG tablet [facility] documented in this encounterResearch Belton HospitalFsoonezxhu24-85-0289 History of Present illness Narrative* Arun Triana [...] a flair up. Pain: 2/10 neck, ankle 310 Objective: PT Evaluation (02/05/24) Cervical ROM: normal [...] to be instructed in home exercise program. [employer] Goals: To be met in 10 weeks [...] 03/07/2024 2:57 PM EST documented in this encounterResearch Belton HospitalRdnkbhjwax37-76-1311 Telephone encounter Note* Telephone Encounter - Sasha Ng - 03/06/2024 4:22 PM EST ALPRAZolam (Xanax) 0.5 MG tablet [facility] HospitalNppmvfribn40-39-9222 History of Present illness Narrative* Zhen Burgess, [...] Please sign below. Date: documented in this encounterResearch Belton HospitalIjtqktyjxe60-74-2336 History of Present illness Narrative* Giovani Hagen [...] DAY IN THE MORNING 30 tablet 2 Aowiascesho-Buhocpumg-Wtxouf 100-62.5-25 MCG/ACT aerosol powder INHALE 1 PUFF [...] CT ANGIOGRAM CHEST 07/30/2018 CT [facility] DATA LEGACY EGD 06/30/2022 Normal [...] No follow-ups on file. documented in this encounterResearch Belton HospitalShldtbqhzh43-72-3882 Telephone encounter Note* Telephone Encounter - Millicent Cordova - 01/29/2024 11:22 AM EDT 25 visits out to 10/21/24 [facility] HospitalIoqblwbdas31-40-6281 Miscellaneous Notes* Telephone Encounter - Millicent Cordova - 01/29/2024 11:22 AM EDT 25 visits out to 10/21/24 documented in this encounterResearch Belton HospitalRajhjfvfig99-56-0472 History of Present illness Narrative* Acacia Vigil, [...] escitalopram (LEXAPRO) 20 mg, Oral, Every morning Ijhmxevoqut-Nbsdabisk-Bzzmwc 100-62.5-25 MCG/ACT aerosol powder INHALE 1 PUFF [...] constipation 09/23/2022 Mild intermittent asthma without complication ([facility]) 09/23/2022 Mood swings 09/23/2022 Nephrolithiasis 09/23/2022 Nonalcoholic steatohepatitis (ENGLISH) 09/23/2022 Other specified abnormal findings of blood chemistry 09/23/2022 Poor concentration 09/23/2022 Sacroiliitis, not elsewhere classified ([facility]) 09/23/2022 Skin pain 09/23/2022 Thyroid enlargement ([facility]) 09/23/2022 Atherosclerosis of aorta ([facility]) 06/16/2020 Atherosclerosis of both carotid arteries 11/16/2020 Atherosclerosis of coronary artery without angina pectoris ([facility]) 05/18/2021 Gastroesophageal reflux disease without esophagitis 07/09/2019 Gastroparesis 11/02/2022 Non-refractory idiopathic generalized epilepsy ([facility]) 11/22/2019 Osteoarthritis of knee 06/14/2019 Hypercholesterolemia ([facility]) 07/01/2021 Recurrent UTI 12/12/2022 Vitamin D deficiency 05/16/2019 Dizziness 12/13/2022 Acute nonintractable headache 12/13/2022 History of COVID-19 02/06/2023 Overweight 02/06/2023 Acute biliary pancreatitis without infection or necrosis 03/21/2023 Calculus of gallbladder without cholecystitis without obstruction 03/23/2023 Cholecystitis 04/18/2023 Encounter for postoperative care 04/18/2023 History of acute pancreatitis 04/18/2023 History of cholecystectomy 04/18/2023 Cough 04/18/2023 Anaphylactic syndrome 04/18/2023 PTSD (post-traumatic stress disorder) ([facility]) 02/24/2015 Tinea 10/03/2023 Weight gain [...] 2017 CHOLECYSTECTOMY 03/23/2023 Laporoscopic COLONOSCOPY 05/11/2018 Dr. aPdgett COLONOSCOPY 05/28/[address] [facility] [address] Winn [...] nursing note reviewed. Exam conducted with a cadd drafter present. Vitals: Estimated body mass index is [...] of: Darwin Starr DO documented in this encounterResearch Belton HospitalYmkxptksnq04-08-1385 History of Present illness Narrative* Giovani Hagen [...] DAY IN THE MORNING 30 tablet 2 Bnphthzglgx-Donqlrkxq-Jrhkkj 100-62.5-25 MCG/ACT aerosol powder INHALE 1 PUFF [...] No follow-ups on file. documented in this encounterResearch Belton [id number] Telephone encounter Note* Telephone Encounter - Mala Hirsch - 01/08/2024 12:52 PM EDT [facility] [place] [facility] [place] [facility] Belton [id number] Miscellaneous Notes* Telephone Encounter - Mala Hirsch - 01/08/2024 12:52 PM EDT [facility] [place] [facility] [place] documented in this encounterResearch Belton [id number] Hospital Discharge instructions Patient Education 12/28/2023 15:59:41 Kidney Stones, Pgqy-it-Dvmb Kidney Stones Kidney stones are rock-like masses [...] Follow these instructions at home: Medicines Take cesi-iql-xtawebk and prescription medicines only as told by [...] provider. Document Revised: 12/02/2022 Document Reviewed: 12/02/2022 Zarth[employer] Patient Education 2023 [employer]. Follow Up Care 11/07/2022 15:52:12 With:BHAVESH DEJESUS PA-C, URL Address: When:1 year [facility] 09-03-2024 History of Present illness Narrative* [...] ER for possible subarachnoid hemorrhage * Monet PABLO Motley - 12/26/2023 3:00 PM EDT Images from [...] DAY IN THE MORNING 30 tablet 2 Afnutfawfzq-Lndqvwhfu-Zoleme 100-62.5-25 MCG/ACT aerosol powder INHALE 1 PUFF [...] No follow-ups on file. documented in this encounterResearch Belton [id number] History of Present illness Narrative* Belle Mckoy Tech - 12/19/2023 3:44 PM EDT EVENT MONITOR DISPOSABLE PATCH INSTRUCTIONS Patient Name: Orion Harper [facility] Number: [id number] Skin prepped and cleansed with alcohol Patch secured to prepped area Monitor Activated Serial #: [id number] Patient Instructed: Prescribed order timeframe Bathing guidelines Usage of event button and diary documentation Return of monitor at the end of prescribed order Call with problems [phone] or [phone] ext. [phone] Patient expresses a good understanding of instructions Tristian Pretty documented in this encounterCleveland Clinic [facility]ucl[facility]08-27-2024 Instructions* Patient Instructions* Solo Carty MD - 12/19/2023 3:27 PM EDT Next Steps: 1). Please wear a heart monitor for 2 weeks and mail it back 2). Please get a stress echo done and follow up with me afterwards documented in this encounterCleveland Clinic Euclid Hospital08-27-2024 History of Present illness Narrative* Solo Carty MD - 12/19/2023 2:45 PM EDT Images from the original note were not included. [facility] Meghna Hooker Department of Cardiovascular Medicine SECTION OF CARDIAC PACING and ELECTROPHYSIOLOGY OUTPATIENT VISIT DATE December 19, 2023 OUTPATIENT VISIT TYPE NEW PRIMARY CARE PHYSICIAN: Giovani Hagen MD [address] [place] [address] CHIEF COMPLAINT: Syncope, cardiac evaluation for family [...] had any workup done including Stress Echo, radiographer cardiac catheterization or 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 Reports symptoms of palpitations [...] had any workup done including Stress Echo, radiographer cardiac catheterization or 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 PLAN AND RECOMMENDATIONS: - Exercise stress echo for exertional syncope to rule out structural or arrhythmic cause - 2 week tina Fiztgerald personally interviewed, confirmed and edited the above information as obtained by others. CONTACT INFORMATION: Solo Carty MD documented in this encounterCleveland Clinic Euclid Hospital08-26-2024 Telephone encounter Note * Telephone Encounter - RT. Aroldo Calvo - 12/18/2023 10:09 AM EDT Patient had labwork performed on 12-13-2023. Dr. Colvin wanted you to be aware so you could review them. Research Belton [id number] Miscellaneous Notes* Telephone Encounter - RT. Aroldo Calvo - 12/18/2023 10:09 AM EDT Patient had labwork performed on 12-13-2023. Dr. Colvin wanted you to be aware so you could review them. documented in this encounterResearch Belton [id number] Telephone encounter Note* Telephone Encounter - VinhJuleeDrummondCriss - 11/02/2023 10:39 AM EDT Images from the original note were not included. Records are in Care Everywhere: EP Referral- 11/01/23 (Dr. Shilo Dillon/Cardiology) Criss Mccrary [facility]07-11-[facility]24 Miscellaneous Notes* Telephone Encounter - Criss Holm - 11/02/2023 10:39 AM EDT Images from the original note were not included. Records are in Care Everywhere: EP Referral- 11/01/23 (Dr. Shilo Dillon/Cardiology) Criss Mccrary documented in this encounterCleveland Clinic Euclid Hospital11-27-2023 Miscellaneous Notes* Telephone Encounter - Charlette [...] PPI prior to transfer. documented in this encounterCleveland Clinic Euclid Hospital07-13-2023 Miscellaneous Notes* Telephone Encounter - Janny Frances - 11/03/2022 3:18 PM EDT PA for Ibsrela initiated electronically. Awaiting response [facility] ID# [id number] Rx BIN [id number] Rx PCN CLAIMCR Rx Grp STOH documented in this encounterCleveland Clinic Euclid Hospital07-12-2023 History of Present illness Narrative* Soraida Caldwell, PhD - 11/02/2022 5:16 PM EDT Behavioral Medicine [facility] Name: Orion Harper MR#: [id number] Date: 11/02/2022 Time: 1 hour Referred by: [...] therapist. Soraida Zhang, Ph.D. documented in this encounterCleveland Clinic Euclid Hospital07-12-2023 History of Present illness Narrative* Samuel Freeman MD - 11/02/2022 1:00 PM EDT Assessment ASSESSMENT 32 year old female with medical refractory gastroparesis. PLAN I discussed surgical therapy for gastroparesis in detail. Orion Harper is candidate for furthermedical treatment. Needs to stop Wegovy May consider for wireless motility capsule study Constipation medication change per Dr. 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 DO Priyank Keller Sp Ddsi Clinical Pool Please ask her to see BASIC ACOUSTIC ANALYST to r/o endometriosis there was a very slight abnormal wave (not strong) suggesting its possible Called and spoke with the patient and relayed providers message. documented in this encounterCleveland Clinic Euclid Hospital06-27-2023 Miscellaneous Notes* Telephone Encounter - Karen Haney LPN - 10/18/2022 11:43 AM EDT PA initiated via PeerApp. Await response. Covered: Retail, Mail Order Unknown: Specialty, Long-Term Care Group ID: [id number] Group name: BIN: [id number] PCN: CLAIMCR documented in this [facility]06-27-2023 History of Present illness Narrative* Maria Dolores Corey DO - 10/18/2022 7:49 AM EDT Images from the original note were not included. documented in this encounterCleveland Clinic Euclid Hospital06-26-2023 Nurse Note* Janny Frances - 10/17/2022 10:47 AM EDT EGG completed. Able to drink the 500 ml of water without any difficulty. documented in this encounterCleveland Clinic Euclid Hospital05-22-2023 History of Present illness Narrative* Oziel [...] 10:11AM PATIENT DISCHARGED TO: Ambulatory patient, left [place] department area. A Diagnostic radioactive procedure has taken place, with no further precautions necessary other than routine body substance precautions. More information regarding radiation safety can be found usingthis link: [email or web address] SIGNATURE: RT Amber(R) PATIENT NAME: Orion Harper DATE: September 12, 2022 TIME: 2:45 PM PAGER/CONTACT #: documented in this encounterCleveland Clinic Euclid Hospital05-10-2023 Nurse Note* Wilma Limon RN - [...] RN In Department: AMBULATORY SURGERY [facility]05-10-[facility] Nurse Note* Wilma Limon RN - [...] In Department: AMBULATORY SURGERY documented in this encounterCleveland Clinic Euclid Hospital05-10-2023 History and physical note * Carol [...] 31, 2022 TIME: 2:51 PM [facility]-10-[facility] History and physical note* Carol Winn [...] 2022 TIME: 2:51 PM documented in this encounterCleveland Clinic Eucl[facility] Hospital05-10-2023 Nurse Note* Ayleen Aj RN - [...] RN In Department: AMBULATORY SURGERY [facility]05-03-2023 Miscellaneous Notes* Telephone Encounter - Светлана Agosto Ma - 08/24/2022 3:59 PM EDT Lm to confirm procedure for 08-31-22 documented in this encounterCleveland Clinic Eucl[facility] Hospital03-14-2023 Hospital Discharge instructions Patient Education 07/05/2022 [...] With:Madhuri ORTIZ Address: [facility] [address] [place] [address]- Business (1) When:11/04/2022 08:39:10 Comments:With a stone [...] feels ready to go home. [facility]03-09-[facility] Nurse Note* Wilma Limon RN - [...] In Department: AMBULATORY SURGERY documented in this encounterCleveland Clinic Eucl[facility] Hospital03-09-2023 Nurse Note* Wilma Limon RN - [...] Pt resting in bed at this time. [facility]03-09-2023 Nurse Note* Wilma Limon RN [...] By: Wilma Limon In Department: AMBULATORY SURGERY [facility]03-09-2023 History and physical note* Carol [...] DATE: June 30, 2022 TIME: 11:35 AM [facility]03-09-2023 History and physical note* Carol Winn [...] 2022 TIME: 11:35 AM documented in this encounterCleveland Clinic [facility]03-09-2023 Nurse Note* Elissa Napoles RN - 06/30/2022 [...] Elissa Napoles RN In Department: AMBULATORY SURGERY [facility]03-02-2023 Miscellaneous Notes* Telephone Encounter - Светлана Agosto Ma - 06/23/2022 3:18 PM EST Confirmed procedure for 06-30-22 documented in this encounterCleveland Clinic Eucl[facility] Hospital02-22-2023 History of Present illness Narrative* Monet [...] 15, 2022 8:08 PM documented in this encounterCleveland Clinic Eucl[facility] Hospital02-21-2023 Miscellaneous Notes* Telephone Encounter - Wilma [...] Carol Winn MD 06/14/2022 9:29 AM EST Mi Milly, the CT scan showed Fatty liver [...] if needed pending results documented in this encounterCleveland Clinic Eucl[facility] Hospital02-17-2023 History of Present illness Narrative* Diamond [...] 10, 2022 10:01 AM documented in this encounterCleveland Clinic Eucl[facility] Hospital02-03-2023 History of Present illness Narrative* Acacia [...] 27, 2022 12:29 PM documented in this encounterCleveland Clinic Euclid Hospital02-03-2023 History of Present illness Narrative* Carol [...] follow up with Dr. Hylton who is guest specialist We discussed seeing endocrinology to help [...] No follow-ups on file. documented in this encounterCleveland Clinic Euclid Hospital01-10-2023 Evaluation note* Encounter Date Diagnosis Assessment Notes Treatment Notes Treatment Clinical Notes Apr, ENGLISH (nonalcoholic steatohepatit is) (ICD-10 - K75.81) Apr,bnormal ultrasound (ICD-10 - R93.89) Apr,Elevated liver enzymes (ICD-10 - R74.8) Apr,Liver cyst (ICD-10 - K76.89) [facility] Other Evaluation + Plan note Future Appointments Appointment Date:06/30/2022 10:00:00 AM Scheduled Provider: Location:[facility] Appointment Type:Urology CALL PAT FT Appointment Date:07/05/2022 08:15:00 AM Scheduled Provider: Location:[facility] Appointment Type:Urology FT Diagnostic Tests Pending * [facility]ments Appointment Date:11/07/2022 03:15:00 PM Scheduled Provider:Madhuri ORTIZ MD Location:[facility] App[facility]ment [facility] Future Appointments Appointment Date:12/30/2024 03:15:00 PM Scheduled Provider:Madhuri ORTIZ MD Location:[facility] Appointment Type:URO Office Visit [facility] evaluation + Plan note Future Appointments Appointment Date:12/31/2024 03:30:00 PM Scheduled Provider:Iliana Cramer PA-C Location:[facility] Appointment Type:URO Complex Office Visit [facility] evaluation + Plan note Future Appointments Appointment Date:12/31/2025 03:30:00 PM Scheduled Provider:Iliana Cramer PA-C Location:[facility] Appointment Type:URO Office Visit [facility] [place] evalhzuwrv noteNo assessment information available [facility] Work Phone: Evaluation note* Diagnosis Fatty liver- Primary Other chronic nonalcoholic liver disease Bilious vomiting with nausea Right sided abdominal pain Abdominal pain, unspecified site Nausea Nausea alone History of diverticulitis SOB (shortness of breath) Shortness of breath documented in this encounter [facility]* Diagnosis Liver lesion- Primary Other specified disorders of liver [facility] Diagnosis Gastroparesis- Primary [facility] Diagnosis Gastroparesis- Primary documented in this encounter [facility]* Diagnosis Irritable bowel syndrome with constipation- Primary Irritable bowel syndrome [facility] Gastroparesis [facility] Diagnosis Gastroparesis- Primary [facility]* Diagnosis SOB (shortness of breath) Shortness of breath [facility]* Diagnosis Liver lesion Other specified disorders of liver [facility] Diagnosis Elevated LFTs Other abnormal blood chemistry [facility]* Diagnosis Bilious vomiting with nausea Right sided abdominal pain Abdominal pain, unspecified site Nausea Nausea alone documented in this encounter [facility]* Diagnosis Nausea Nausea alone documented in this encounter [facility]* Diagnosis Gastroparesis- Primary documented in this encounter [facility]* Diagnosis Syncope and collapse- Primary documented in this encounter [facility]* Diagnosis Syncope, unspecified syncope type- Primary documented in this encounter [facility]* Diagnosis Syncope, unspecified syncope type- Primary documented in this encounter [facility]* Diagnosis Nausea- Primary Nausea alone PUD (peptic ulcer disease) Peptic ulcer, unspecified site, unspecified as acute or chronic, without mention of hemorrhage, perforation, or obstruction Nausea Nausea alone documented in this encounter [facility]* Diagnosis PUD (peptic ulcer disease)- Primary Peptic ulcer, unspecified site, unspecified as acute or chronic, without mention of hemorrhage, perforation, or obstruction Bilious vomiting with nausea Right sided abdominal pain Abdominal pain, unspecified site Nausea- Primary Nausea alone PUD (peptic ulcer disease) Peptic ulcer, unspecified site, unspecified as acute or chronic, without mention of hemorrhage, perforation, or obstruction documented [facility]* Diagnosis Attention deficit hyperactivity disorder, predominantly [...] episode manic (CMS/HCC) documented in this encounter [facility]Evaluation note* Diagnosis Attention deficit hyperactivity disorder, [...] Cystitis Unspecified cystitis documented in this encounter [facility]* Diagnosis Attention deficit hyperactivity [...] rectum and anus documented in this encounter [facility]* Diagnosis Attention deficit hyperactivity disorder, [...] inattentive type (CMS/HCC) documented in this encounter [facility]* Diagnosis Attention deficit hyperactivity [...] 35.0-39.9 without comorbidity) documented in this encounter [facility]* Diagnosis Elevated LFTs- Primary Other abnormal blood chemistry [facility] Diagnosis Elevated LFTs- Primary Other abnormal blood chemistry documented in this encounter [facility]* Diagnosis Attention deficit hyperactivity disorder, [...] Moderate persistent asthmatic bronchitis with acute exacerbation ([facility])- Primary Sprain of anterior talofibular ligament of right ankle, subsequent encounter Snoring Other dyspnea and respiratory abnormality Peroneal tendon tear, right, initial encounter- Primary Sprain of anterior talofibular ligament of right ankle, subsequent encounter Osteochondritis dissecans of ankle, right Severe ankle sprain, right, initial encounter documented in this encounter [facility]Evaluation [facility]* Diagnosis Right ankle instability- Primary Other joint derangement, not elsewhere classified, ankle and foot Right ankle instability Other joint derangement, not elsewhere classified, ankle and foot [facility] Diagnosis Sprain of anterior talofibular ligament of right ankle, initial encounter- Primary Right ankle instability Other joint derangement, not elsewhere classified, ankle and foot [facility]* Diagnosis Attention deficit hyperactivity disorder, predominantly inattentive type (CMS/HCC)- Primary Bipolar disorder, in partial remission, most recent episode manic ([facility]/HCC) Dizziness Dizziness and giddiness Nonintractable episodic headache, unspecified headache type Attention deficit hyperactivity disorder, predominantly inattentive type (CMS/HCC)- Primary Anxiety Anxiety state, unspecified Bipolar disorder, in partial remission, most recent episode manic ([facility]/HCC) History of cholecystectomy Other acquired absence [...] of spine- Primary documented in this encounter [facility]* Diagnosis ENGLISH (nonalcoholic steatohepatitis)- Primary Other chronic nonalcoholic liver disease Right ankle instability Other joint derangement, not elsewhere classified, ankle and foot documented in this encounter [facility]* Diagnosis Attention deficit hyperactivity disorder, [...] cervix and uterus documented in this encounter [facility] HealthcareEvaluation note* Diagnosis BRBPR (bright red blood per rectum) Hemorrhage of rectum and anus documented in this encounter [facility]* Diagnosis Attention deficit hyperactivity disorder, [...] following unspecified surgery documented in this encounter [facility] HealthcareEvaluation note* Diagnosis Attention deficit [...] in partial remission, most recent episode manic ([facility]/HCC) Prediabetes Other abnormal glucose Anxiety- Primary Anxiety state, unspecified Generalized idiopathic epilepsy and epileptic syndromes, not intractable, 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) 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 PTSD (post-traumatic stress disorder) ([facility]) Posttraumatic stress disorder documented in this encounter [facility]* Diagnosis Other specified dyspareunia- Primary Pelvic pain in female Unspecified symptom associated with female genital organs Pelvic pain in female- Primary Unspecified symptom associated with female genital organs Other specified dyspareunia documented in this encounter [facility]* Diagnosis Pelvic pain in female- Primary Unspecified symptom associated with female genital organs Other specified dyspareunia documented in this encounter [facility]* Diagnosis Chronic idiopathic constipation Unspecified constipation documented in this encounter [facility]* Diagnosis Attention deficit hyperactivity disorder, predominantly inattentive type (CMS/HCC)- Primary Bipolar disorder, in partial remission, most recent episode manic ([facility]/HCC) Dizziness Dizziness and giddiness Nonintractable episodic headache, unspecified headache type Attention deficit hyperactivity disorder, predominantly inattentive type (CMS/HCC)- Primary Anxiety Anxiety state, unspecified Bipolar disorder, in partial remission, most recent episode manic ([facility]/HCC) History of cholecystectomy Other acquired absence of organ History of acute pancreatitis Anaphylaxis, sequela Cough, unspecified type Bipolar disorder, in partial remission, most recent episode manic ([facility]/HCC)- Primary Attention deficit hyperactivity disorder [...] epileptic syndromes, not intractable, without status epilepticus ([facility]/HCC) 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[facility]/HCC) Other disorder of impulse control PTSD (post-traumatic stress disorder) ([facility]/HCC) Posttraumatic stress disorder Peroneal tendon tear, [...] of impulse control PTSD (post-traumatic stress disorder) ([facility]/HCC) Posttraumatic stress disorder Anxiety Anxiety state, unspecified PTSD (post-traumatic stress disorder) ([facility]/HCC) Posttraumatic stress disorder documented in this [...] subsequent encounter- Primary documented in this encounter [facility]* Diagnosis Palpitation- Primary Palpitations documented in this encounter [facility]* Diagnosis Attention deficit hyperactivity disorder, [...] Moderate persistent asthmatic bronchitis with acute exacerbation ([facility]/HCC)- Primary Sprain of anterior talofibular ligament of right ankle, subsequent encounter Snoring Other dyspnea and respiratory abnormality 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), predominantly inattentive type (CMS/HCC) Bipolar disorder, in partial remission, most recent episode manic ([facility]/HCC) Prediabetes Other abnormal glucose Anxiety- Primary Anxiety state, unspecified Generalized idiopathic epilepsy and epileptic syndromes, not intractable, 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) 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 PTSD (post-traumatic stress disorder) ([facility]/HCC) Posttraumatic stress disorder Agoraphobia with panic attacks [...] complication, sequela- Primary documented in this encounter [facility]* Diagnosis Rectal pain- Primary Anal or rectal pain Hemorrhoids, unspecified hemorrhoid type documented [facility] this encounter [facility] Diagnosis Attention deficit hyperactivity disorder, [...] with panic disorder [facility] [facility]* Diagnosis Pelvic floor dysfunction- Primary Pelvic muscle wasting Chronic constipation Unspecified constipation Gastroparesis [facility] Attention deficit hyperactivity disorder, [...] of status migrainosus [facility] Diagnosis Muscle spasm- Primary Spasm of muscle Pelvic floor dysfunction Pelvic muscle wasting Chronic constipation Unspecified constipation [facility] Diagnosis Pelvic floor dysfunction Pelvic muscle wasting Chronic constipation Unspecified constipation [facility] Diagnosis Pelvic floor dysfunction Pelvic muscle wasting Chronic constipation Unspecified constipation [facility] Diagnosis Pelvic floor dysfunction Pelvic muscle wasting Chronic constipation Unspecified constipation [facility] Diagnosis Attention deficit hyperactivity disorder, predominantly [...] Morbid (severe) obesity due to excess calories ([facility]) Impaired fasting glucose Obesity, class 2 Body mass index (BMI) 36.0-36.9, adult documented in this encounter [facility] HealthcareEvaluation note* Diagnosis Attention deficit [...] Morbid (severe) obesity due to excess calories ([facility]) Impaired fasting glucose Obesity, class 2 [...] Morbid (severe) obesity due to excess calories ([facility]) Impaired fasting glucose Obesity, class 2 [...] Morbid (severe) obesity due to excess calories ([facility]) Impaired fasting glucose Obesity, class 2 Body mass index (BMI) 36.0-36.9, adult Other synovitis and tenosynovitis, right ankle and foot- Primary Right foot pain Pain in soft tissues of limb Other enthesopathy of right foot and ankle [facility] Diagnosis Chronic pelvic pain in [...] female genital organs [facility] Diagnosis Attention deficit hyperactivity disorder, [...] epileptic syndromes, not intractable, without status epilepticus ([facility]) Trichotillomania Other disorder of impulse control PTSD [...] Morbid (severe) obesity due to excess calories ([facility]) Impaired fasting glucose Obesity, class 2 Body mass index (BMI) 36.0-36.9, adult Well adult health check- Primary Unspecified general medical examination Chest pain, unspecified type Elevated liver enzymes Other nonspecific abnormal serum enzyme levels Type 2 diabetes mellitus without complication, without long-term current use of insulin ([facility]) documented in [facility] encounter [facility]* [...] Morbid (severe) obesity due to excess calories ([facility]) Impaired fasting glucose Obesity, class 2 [...] Morbid (severe) obesity due to excess calories ([facility]) Impaired fasting glucose Obesity, class 2 [...] Morbid (severe) obesity due to excess calories ([facility]) Impaired fasting glucose Obesity, class 2 Body [...] Morbid (severe) obesity due to excess calories ([facility]) Impaired fasting glucose Obesity, class 2 Body mass index (BMI) 36.0-36.9, adult Well adult health check- Primary Unspecified general medical examination Chest pain, unspecified type Elevated liver enzymes Other nonspecific abnormal serum enzyme levels Type 2 diabetes mellitus without complication, without long-term current use of insulin ([facility]) Attention deficit hyperactivity disorder (ADHD), predominantly inattentive [...] epileptic syndromes, not intractable, without status epilepticus ([facility]) Trichotillomania Other disorder of impulse control PTSD [...] Morbid (severe) obesity due to excess calories ([facility]) Impaired fasting glucose Obesity, class 2 Body mass index (BMI) 36.0-36.9, adult Well adult health check- Primary Unspecified general medical examination Chest pain, unspecified type Elevated liver enzymes Other nonspecific abnormal serum enzyme levels Type 2 diabetes mellitus without complication, without long-term current use of insulin ([facility]) Foot drop, left- Primary Other acquired deformity [...] Morbid (severe) obesity due to excess calories ([facility]) Impaired fasting glucose Obesity, class 2 Body mass index (BMI) 36.0-36.9, adult Well adult health check- Primary Unspecified general medical examination Chest pain, unspecified type Elevated liver enzymes Other nonspecific abnormal serum enzyme levels Type 2 diabetes mellitus without complication, without long-term current use of insulin ([facility]) Attention deficit hyperactivity disorder (ADHD), predominantly inattentive type Bipolar disorder, in partial remission, most recent episode manic (HCC) 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 documented in this encounter [facility] HealthcareEvaluation note* Diagnosis Attention deficit hyperactivity [...] epileptic syndromes, not intractable, without status epilepticus ([facility]) Trichotillomania Other disorder of impulse control PTSD [...] stress disorder Major depressive disorder, recurrent, moderate ([facility]) Major depressive disorder, recurrent episode, moderate Lumbar radiculopathy Thoracic or lumbosacral neuritis or radiculitis, unspecified Weight gain Other symptoms concerning nutrition, metabolism, and development Borderline diabetes Morbid (severe) obesity due to excess calories ([facility]) Impaired fasting glucose Obesity, class 2 Body mass index (BMI) 36.0-36.9, adult Well adult health check- Primary Unspecified general medical examination Chest pain, unspecified type Elevated liver enzymes Other nonspecific abnormal serum enzyme levels Type 2 diabetes mellitus without complication, without long-term current use of insulin ([facility]) Well woman exam with routine gynecological exam Routine gynecological examination H/O: hysterectomy Acquired absence of both cervix and uterus Abnormal urine odor Other nonspecific finding on examination of urine BV (bacterial vaginosis) Unspecified vaginitis and vulvovaginitis documented in this encounter [facility]* [...] Morbid (severe) obesity due to excess calories ([facility]) Impaired fasting glucose Obesity, class 2 Body mass index (BMI) 36.0-36.9, adult Well adult health check- Primary Unspecified general medical examination Chest pain, unspecified type Elevated liver enzymes Other nonspecific abnormal serum enzyme levels Type 2 diabetes mellitus without complication, without long-term current use of insulin ([facility]) Other synovitis and tenosynovitis, right ankle and foot- Primary Foot drop, left Other acquired deformity of ankle and foot documented in this encounter [facility] HealthcareEvaluation note* Diagnosis Attention deficit hyperactivity [...] Morbid (severe) obesity due to excess calories ([facility]) Impaired fasting glucose Obesity, class 2 Body mass index (BMI) 36.0-36.9, adult Well adult health check- Primary Unspecified general medical examination Chest pain, unspecified type Elevated liver enzymes Other nonspecific abnormal serum enzyme levels Type 2 diabetes mellitus without complication, without long-term current use of insulin (HCC) Foot drop, left- Primary Other acquired deformity [...] without long-term current use of insulin (HCC) Foot drop, left- Primary Other acquired deformity of ankle and foot documented in this encounter [facility] general Narrative - Reported* Type Description Date Medical History Anxiety Medical HistoryDepressionMedical HistoryDiverticulosisMedical Historybipolar Surgical HistoryC sectionSurgical HistoryhysterectomyHospitalization Historysee aboveHospitalization Sgvkevmxglkokgcxjsxhx64/3/18Hospitalization HistoryNONE ON THE LAST YEAR [facility] Other Hospital course Narrative No data available for this section [facility] Discharge instructions No data available for this section [facility] HospitalProgress note No data available for this section [facility] HospitalReason for referral (narrative)* Outpatient Procedure (Routine) - AuthorizedSpecialtyDiagnoses / ProceduresReferred By ContactReferred To [facility] Diagnoses Bilious vomiting with nausea Right sided abdominal pain Procedures EGD DIAGNOSTIC ESOPHAGOGASTRODUODENOSCOPY [place] [address] [place] [address] [facility] [address] [place] [address] Referral IDStatusReasonStart DateExpiration DateVisits RequestedVisits [id number] Auto-Generated Referral * MRI/CT (Routine) - AuthorizedSpecialtyDiagnoses / ProceduresReferred By ContactReferred To [facility] Diagnoses Bilious vomiting with nausea Right sided abdominal pain Nausea Procedures CT ABD/PEL WO IVCON CT ABD & P[place] [address] [place] [address] Ct Imaging Referral IDStatusReasonStart DateExpiration DateVisits RequestedVisits [id number] Auto-Generated Referral / [facility] for referral (narrative)* Diagnostic Procedure Only (Routine) - AuthorizedSpecialtyDiagnoses / ProceduresReferred By Contact Referred To [facility] Diagnoses Liver lesion Procedures US ABD RT UPPER QUADRANT US ABDOMINAL REAL TIME W/IMAGE LIMITED Carol Winn MD [address] [place] [address] Us Imaging Referral IDStatusReasonStart DateExpiration DateVisits RequestedVisits [id number] Auto-Generated Referral / [facility] for referral (narrative)* Diagnostic Procedure Only (Routine) - ClosedSpecialtyDiagnoses / ProceduresReferred By ContactReferred To [facility]AG[facility] Diagnoses Liver lesion Procedures US ABD RT UPPER QUADRANT US ABDOMINAL REAL [place] W/[place] [address] [place] [address] Us Imaging [place] [address] Referral IDStatusReasonStart DateExpiration DateVisits RequestedVisits [id number] Auto-Generated Referral / [facility] for referral (narrative)* Diagnostic Procedure Only (Routine) - ClosedSpecialtyDiagnoses / ProceduresReferred By ContactReferred To ContactUS IMAGING Diagnoses Elevated LFTs Procedures US ABD RT UPPER QUADRANT US ABDOMINAL REAL [place] [address] [place] [address] Imaging [facility] Referral IDStatusReasonStart DateExpiration DateVisits RequestedVisits [id number] Auto-Generated Referral / [facility] for referral (narrative)* Diagnostic Procedure Only (Routine) - ClosedSpecialtyDiagnoses / ProceduresReferred By ContactReferred To ContactMOLECULAR & FUNCTIONAL IMAGING Diagnoses Nausea Procedures NM GASTRIC EMPTYING SOLID [place] [address] [place] [address] Molecular & Functional Imaging [address] [place] [address] Referral IDStatusRecameron regional medical centerStflorence DateExpiration DateVisits RequestedVisits [id number] Auto-Generated Referral / [facility] for referral (narrative)* Outpatient Procedure (Routine) - AuthorizedSpecialtyDiagnoses / ProceduresReferred By ContactReferred To [facility] Diagnoses Gastroparesis Procedures ECG COMPLETE ECG ROUTINE ECG W/LEAST 12 LDS W/I&R Solo Carty MD [address] [place] [address] [facility] [address] [place] [address] Referral IDStatusReasonStflorence DateExpiration DateVisits RequestedVisits [id number] Auto-Generated Referral / [facility] for referral (narrative)* Outpatient Procedure (Routine) - AuthorizedSpecialtyDiagnoses / ProceduresReferred By ContactReferred To [facility] VASCULAR DERBY Diagnoses Syncope and collapse Procedures ECG COMPLETE ECG ROUTINE ECG W/LEAST 12 LDS W/I&R Solo Carty MD [address] [place] [address] [facility] [address] [place] [address] Referral IDStatusReasonStart DateExpiration DateVisits RequestedVisits [id number] Auto-Generated Referral / [facility] for referral (narrative)* Diagnostic Procedure Only (Routine) - ClosedSpecialtyDiagnoses / ProceduresReferred By ContactReferred To ContactMOLECULAR & FUNCTIONAL IMAGING Diagnoses Nausea Procedures NM GASTRIC EMPTYING SOLID [place]IC [place] [address] [place] [address] Molecular [facility] Functional Imaging [address] [place] [id number] Ref[facility]Status[facility] DateExpiration DateVisits RequestedVisits [id number] Auto-Generated Referral / * Outpatient Procedure (Routine) - ClosedSpecialtyDiagnoses / ProceduresReferred By ContactReferred To [facility] Diagnoses PUD (peptic ulcer disease) Procedures EGD DIAGNOSTIC ESOPHAGOGASTRODUODENOSCOPY [place]ANS[place] [address] [place] [address] [facility] [address] [place] [address] Referral IDStatusReasonStart DateExpiration DateVisits RequestedVisits [id number] Auto-Generated Referral / [facility] for referral (narrative)* Outpatient Procedure (Routine) - ClosedSpecialtyDiagnoses / ProceduresReferred By ContactReferred To [facility] Diagnoses PUD (peptic ulcer disease) Procedures EGD DIAGNOSTIC ESOPHAGOGASTRODUODENOSCOPY TRANSORAL DIAGNOSTIC Carol Winn MD [id number] [place] [address] [facility] [address] [place], [place] [phone] Referral IDStatusReason[place] DateExpiration DateVisits RequestedVisits [id number] Auto-Generated Referral / * Outpatient Procedure (Routine) - ClosedSpecialtyDiagnoses / ProceduresReferred By ContactReferred To [facility] Diagnoses Bilious vomiting with nausea Right sided abdominal pain Procedures EGD DIAGNOSTIC ESOPHAGOGASTRODUODENOSCOPY TRANSORAL DIAGNOSTIC Carol Winn MD [address] [place] [address] [address] Referral IDStatusReasonStfl[place] DateExpiration DateVisits RequestedVisits [id number] Auto-Generated Referral / [facility] for referral (narrative)* Outpatient Procedure (Routine) - AuthorizedSpecialtyDiagnoses / ProceduresReferred By ContactReferred To [facility] Diagnoses BRBPR (bright red blood per rectum) Procedures COLONOSCOPY DIAGNOSTIC COLONOSCOPY FLX DX W/COLLJ SPEC WHEN PFRMD Iliana Mercado PA-C [id number] [place] [address] [facility] [address] [place], [place] [phone] Referral IDStatusReason[place] DateExpiration DateVisits RequestedVisits [id number] Auto-Generated Referral * Outpatient Procedure (Routine) - AuthorizedSpecialtyDiagnoses / Procedures Referred By ContactReferred To [facility] Diagnoses Elevated LFTs Procedures DDI VIBRATION CONTROLLED TRANSIENT ELASTOGRAPHY (VCTE) LIVER ELASTOGRAPHY W/O IMAG W/I&R Iliana Mercado PA-C [id number] [place] [address] [place] [address] Referral IDStatusReasonStart DateExpiration DateVisits RequestedVisits [id number] Auto-Generated Referral [facility] for referral (narrative)* Outpatient Procedure (Routine) - Pending ReviewSpecialtyDiagnoses / ProceduresReferred By ContactReferred To [facility] Diagnoses ENGLISH (nonalcoholic steatohepatitis) Procedures LIVER BIOPSY NEEDLE BIOPSY LIVER NEEDLE PERCUTANEOUS Rosario Mcconnell I, MD [address] [place] [address] [place] [address] Referral IDStatusReasonStart DateExpiration DateVisits RequestedVisits [id number] Auto-Generated Referral [facility] for referral (narrative)* Outpatient Procedure (Routine) - ClosedSpecialtyDiagnoses / ProceduresReferred By [facility] HospitalRefmission bay campused To [facility] Diagnoses BRBPR (bright red blood per rectum) Procedures COLONOSCOPY DIAGNOSTIC COLONOSCOPY FLX DX W/COLLJ SPEC WHEN PFRMD Iliana Mercado PA-C [address] [place] [address] [facility] [address] [place] [address] Ref[facility]Status[facility] DateExpiration DateVisits RequestedVisits [id number] Auto-Generated Referral / [facility] for visit NarrativePATIENT HERE AT THE REQUEST OF DR. HAGEN FOR ENGLISH & ABNORMAL US. ULTRASOUND AND LABS IN REFERRAL. PATIENT STATES SHE FEELS LETHARGIC & HAS OCCASIONAL ABDOMINAL PAINTuscaloosa Globili Other [facility] Narrative* Diagnostic Procedure Only (Routine) - ClosedSpecialtyDiagnoses / ProceduresReferred By ContactReferred To ContactUS IMAG[facility] Diagnoses Liver lesion Procedures US ABD RT UPPER QUADRANT US ABDOMINAL REAL [place] W/[place] [address] [place] [address] Us Imaging [facility] Referral IDStatusasonStflorence DateExpiration DateVisits RequestedVisits [id number] Auto-Generated Referral / [facility] for visit Narrative* Diagnostic Procedure Only (Routine) - ClosedSpecialtyDiagnoses / ProceduresReferred By ContactReferred To Contact [facility] Diagnoses Elevated LFTs Procedures US ABD RT UPPER QUADRANT US ABDOMINAL REAL TIME W/[place] [address] [place] [address] Us Imaging [facility] Referral IDStatusReasonStfl[place] DateExpiration DateVisits RequestedVisits [id number] Auto-Generated Referral / [facility] for visit Narrative* Diagnostic Procedure Only (Routine) - ClosedSpecialtyDiagnoses / ProceduresReferred By ContactReferred To Contact [facility]LEC[facility] FUNCTIONAL IMAGING Diagnoses Nausea Procedures NM GASTRIC EMPTYING SOLID GASTRIC [place] [address] [place] [address] Molecular [facility] Functional Imaging [address] [place] [phone] Referral IDStatusReasonStart DateExpiration DateVisits RequestedVisits [id number] Auto-Generated Referral [facility] for visit Narrative* Outpatient Procedure (Routine) - ClosedSpecialtyDiagnoses / ProceduresReferred By ContactReferred To Contact [facility] Diagnoses PUD (peptic ulcer disease) Procedures EGD DIAGNOSTIC ESOPHAGOGASTRODUODENOSCOPY TRANSORAL DIAGNOSTIC Carol Winn [place] [id number] [place] [address] [facility] [address] [address] Referral IDStatusReasonStart DateExpiration DateVisits RequestedVisits [id number] Auto-Generated Referral [facility] for visit Narrative* Outpatient Procedure (Routine) - ClosedSpecialtyDiagnoses / ProceduresReferred By ContactReferred To Contact [facility] Diagnoses Bilious vomiting with nausea Right sided abdominal pain Procedures EGD DIAGNOSTIC ESOPHAGOGASTRODUODENOSCOPY [place] [address] [place] [address] [facility] [address] [address] Referral IDStatusReasonStart DateExpiration DateVisits RequestedVisits [id number] Auto-Generated Referral / [facility] for visit Narrative* Rehabilitation - Outpatient (Routine) - AuthorizedSpecialtyDiagnoses / ProceduresReferred By Contact Referred To ContactPhysical Therapy Diagnoses Cervical radiculopathy Procedures [facility] MIN[facility] Giovani Hagen MD [address] [address] Phone: tel: fax: Zhen Burgess, PT 112 [facility] [address] [place] [address] Phone: tel: fax: Referral IDStatusReasonStart DateExpiration DateVisits RequestedVisits [id number] Specialty Services Required [facility] for visit Narrative* Rehabilitation - Outpatient (Routine) - AuthorizedSpecialtyDiagnoses / ProceduresReferred By ContactReferred To ContactPhysical Therapy Diagnoses Cervical radiculopathy Unspecified injury of right ankle, subsequent encounter Procedures AL OFFICE/OUTPATIENT [facility] 60 MINUTES Giovani Hagen MD 112 [facility] [address] [place] [address] Phone: tel: fax: Zhen Burgess, PT 112 [facility] [address] [place] [address] Phone: tel: fax: Referral IDStatusReasonStart DateExpiration DateVisits RequestedVisits [id number] Specialty Services Required [facility] for visit Narrative* Outpatient Procedure (Routine) - ClosedSpecialtyDiagnoses / ProceduresReferred By ContactReferred To Contact [facility] Diagnoses Elevated LFTs Procedures DDI VIBRATION CONTROLLED TRANSIENT ELASTOGRAPHY (VCTE) LIVER ELASTOGRAPHY W/O IMAG W/I&R Iliana Mercado PA-C [address] [place] [address] [facility] [address] [place] [address] Referral IDStatusReasonStart DateExpiration DateVisits RequestedVisits [id number] Auto-Generated Referral [facility] for visit Narrative* Outpatient Procedure (Routine) - ClosedSpecialtyDiagnoses / ProceduresReferred By ContactReferred To Contact [facility] DISEASE [facility] Diagnoses BRBPR (bright red blood per rectum) Procedures COLONOSCOPY DIAGNOSTIC COLONOSCOPY FLX DX W/COLLJ SPEC WHEN PFRMD Iliana Mercado PA-C [address] [place] [phone] [address] Referral IDStatusReasonStart DateExpiration DateVisits RequestedVisits [id number] Auto-Generated Referral / [facility] for visit Narrative* Diagnostic Procedure Only (Routine) - ClosedSpecialtyDiagnoses / ProceduresReferred By ContactReferred To Contact [facility] Diagnoses Other specified dyspareunia Pelvic pain in female Procedures PELVIC US WHI US PELVIC NONOBSTETRIC REAL-TIME IMAGE COMPLETE Javy Boudreaux MD [address] [address] Phone: tel: fax: [address] [address] Referral IDStatusReasonStart DateExpiration DateVisits RequestedVisits [id number] Auto-Generated Referral / [facility] for visit Narrative* Diagnostic Procedure Only (Routine) - ClosedSpecialtyDiagnoses / ProceduresReferred By ContactReferred To Contact XR IMAGING Diagnoses Chronic idiopathic constipation Procedures XR ABDOMEN 2V ROUTINE SUPINE W UPRIGHT/DECUB/CTL RADIOLOGIC EXAM ABDOMEN 2 VIEWS Iliana Mercado PA-C [address] [place] [phone] Phone: tel: fax: [place] [address] Referral IDStatusReasonStart DateExpiration DateVisits RequestedVisits [id number] Auto-Generated Referral / [facility] for visit Narrative* Diagnostic Procedure Only (Routine) - AuthorizedSpecialtyDiagnoses / ProceduresReferred By ContactReferred To ContactXR IMAGING Diagnoses Pelvic floor dysfunction Chronic constipation Procedures XR ABDOMEN 1V SUPINE RADIOLOGIC EXAM ABDOMEN 1 VIEW Mario Harper, [employer] [address] [place] [address] Phone: tel: fax: [place] [address] Referral IDStatusReason[facility] [place] DateExpiration DateVisits RequestedVisits [id number] Auto-Generated Referral / [facility] Summary Purpose Family History Relationship Condition [...] cervical spine wo contrast Giovani Hagen MD [address] [place] [address] Referral IDStatusReasonart DateExpiration DateVisits RequestedVisits [id number] /[id number] / ProceduresReferred By ContactReferred To Contact Diagnoses Attention deficit hyperactivity disorder (ADHD), predominantly inattentive type (CMS/HCC) Giovani Hagen MD [address] [address] Referral IDStatusReasonStart DateExpiration DateVisits RequestedVisits [id number] / ProceduresReferred By Contact Referred To Contact Diagnoses Attention deficit hyperactivity disorder (ADHD), predominantly inattentive type (CMS/HCC) Giovani Hagen MD 112 [facility] 110 [place] [address] Referral IDStatusReasonStart DateExpiration DateVisits RequestedVisits [id number] Review/[id number] / ProceduresReferred By ContactReferred To [facility] Diagnoses Syncope, unspecified syncope type Procedures CARDIOVASCULAR MEDICINE OP FOLLOW UP APPT ORDER Solo Carty MD [address] [place] [address] [facility] [address] [address] Ref[facility]Status[facility] DateExpiration DateVisits RequestedVisits [id number] Not Required PCP Requested Referral /[id number] / ProceduresReferred By ContactReferred To [facility] Diagnoses Syncope, unspecified syncope type Procedures STRESS ECHO TREADMILL ECHO TTHRC R-T 2D W/WO M-MODE COMPLETE REST&ST Solo Carty MD [address] [place] [address] [address] Ref[facility] DateExpiration DateVisits RequestedVisits [id number] Auto-Generated Referral /[id number] / ProceduresReferred By ContactReferred To ContactCT IMAGING Diagnoses Bilious vomiting with nausea Right sided abdominal pain Nausea Procedures CT ABD/PEL WO IVCON CT ABD & P[place] [address] [place] [address] [address] [facility] [place] [address] Referral IDStatusReasonStflorence DateExpiration DateVisits RequestedVisits [id number] Auto-Generated Referral /[id number] Additional Source Comments INFORMATION SOURCE (unrecogn ized section and content) DATE CREATED AUTHOR 11/09/2018 [facility] DATE CREATED AUTHOR AUTHOR'S ORGANIZ ATION 08/23/2021 [facility] [employer] DATE CREATED AUTHOR AUTHOR'S ORGANIZ ATION 07/17/2022 [facility] DATE CREATED AUTHOR AUTHOR'S ORGANIZ ATION 03/22/2023 [facility] DATE CREATED AUTHOR AUTHOR'S ORGANIZ ATION 03/28/2023 [facility] DATE CREATED AUTHOR AUTHOR'S ORGANIZ ATION 04/07/2024 [facility] DATE CREATED AUTHOR AUTHOR'S ORGANIZ ATION 04/12/2024 [facility] DATE CREATED AUTHOR AUTHOR'S ORGANIZ ATION 09/26/2024 [facility] DATE CREATED AUTHOR AUTHOR'S ORGANIZ ATION 01/03/2025 [facility] DATE CREATED AUTHOR AUTHOR'S ORGANIZ ATION 02/18/2025 [facility] DATE CREATED AUTHOR AUTHOR'S ORGANIZ ATION 03/01/2025 [facility] DATE CREATED AUTHOR AUTHOR'S ORGANIZ ATION 03/01/2025 [facility] DATE CREATED AUTHOR AUTHOR'S ORGANIZ ATION 03/04/2025 [facility] EPIC Care Teams (unrecognized sec tion and content) Team Status: Active Member Role Status Dates Giovani Hagen MD Primary Care Provider Active Team Status: Inactive Member Role Status Dates Erwin Hylton MD Attending Provider Active Klaus Harmon Care ProviderActiveTeam MemberRelationshipSpecialty Start DateEnd Date Giovani Hagen [address] [address] PCP - GeneralFamily Qatmwmuz65/4/19Team MemberRelationshipSpecialtyStart DateEnd Date Giovani Hagen 112 [facility] 110 [place] [address] PCP - GeneralFamily Evxttwzz82/4/19Team MemberRelationshipSpecialtyStart DateEnd Date Hieu Giovani Rust 112 [facility] [address] [place] [address] PCP - GeneralFamily Gzeiqkvj25/4/19Team MemberRelationshipSpecialtyStart DateEnd Date Kiran Hagenen Mabalay [address] [place] [address] [place] [address] PCP - GeneralFamily Ooksxqce72/4/19Team MemberRelationshipSpecialtyStart DateEnd Date [place], Rugen Mabalay [address] [place] [address] [place] [address] PCP - GeneralFamily Augjukcw25/4/19Team MemberRelationshipSpecialtyStart DateEnd Date Hieu Rugen Mabalay [address] [place] [address] [place] [address] PCP - GeneralFamily Fxfwhkzx94/4/19Team MemberRelationshipSpecialtyStart DateEnd Date Hieu, Rugen Mabalay [address] [place] [address] [place] [address] PCP - GeneralFamily Jlxwohtw20/4/19Team MemberRelationshipSpecialtyStart DateEnd Date Hieu Rugen Mabalay [address] [place] [address] [place] [address] PCP - GeneralFamily Xqljbfql38/4/19Team MemberRelationshipSpecialtyStart DateEnd Date Hieu Rugen Mabalay [address] [place] [address] [place] [address] PCP - GeneralFamily Uwohwrml99/4/19Team MemberRelationshipSpecialtyStart DateEnd Date Hieu, Rugen Mabalay [address] [place] [address] [place] [address] PCP - GeneralFamily Ghxxxjiz47/4/19Team MemberRelationshipSpecialtyStart DateEnd Date Hieu Rugen Mabalay [address] [place] [address] [place] [address] PCP - GeneralFamily Axigteid98/4/19Team MemberRelationshipSpecialtyStart DateEnd Date Giovani Hagen [address] [place] [address] [place] [address] PCP - GeneralFamily Bilqhmxk72/4/19Team MemberRelationshipSpecialtyStart DateEnd Date Giovani Hagen [address] [place] [address] [place] [address] PCP - GeneralFamily Qckfhaeu75/4/19Team MemberRelationshipSpecialtyStart DateEnd Date Giovani Hagen [address] [place] [address] [place] [address] PCP - GeneralFamily Tdoaqmqw35/4/19Team MemberRelationshipSpecialtyStart DateEnd Date Giovani Hagen MD [address] [place] [address] [place] [address] PCP - GeneralFamily Cfsoegqu53/4/19Team MemberRelationshipSpecialtyStart DateEnd Date Giovani Hagen MD [address] [place] [address] [place] [address] PCP - GeneralFamily Irtjhvew66/4/19Team MemberRelationshipSpecialtyStart DateEnd Date Giovani Hagen MD [address] [place] [address] [place] [address] PCP - GeneralFamily Ohiwlpfj90/4/19Team MemberRelationshipSpecialtyStart DateEnd Date Giovani Hagen MD [address] [place] [address] [place] [address] PCP - GeneralFamily Uoaqohuf79/4/19Team MemberRelationshipSpecialtyStart DateEnd Date Giovani Hagen MD [address] [place] [address] [place] [address] PCP - GeneralFamily Plibaixn66/4/19Team MemberRelationshipSpecialtyStart DateEnd Date Giovani Hagen MD [address] [place] [address] [place] [address] PCP - GeneralFamily Iapxxach65/4/19Team MemberRelationshipSpecialtyStart DateEnd Date Giovani Hagen MD [address] [place] [address] [place] [address] PCP - GeneralFamily Mkclhehu79/4/19Team MemberRelationshipSpecialtyStart DateEnd Date Giovani Hagen MD [address] [place] [address] [place] [address] PCP - GeneralFamily Tklglvpw53/4/19Team MemberRelationshipSpecialtyStart DateEnd Date Giovani Hagen MD [address] [place] [address] [place] [address] PCP - GeneralFamily Nyahaygp40/4/19Team MemberRelationshipSpecialtyStart DateEnd Date Giovani Hagen MD [address] [place] [address] [place] [address] PCP - GeneralFamily Dmhsvaxg98/4/19Team MemberRelationshipSpecialtyStart DateEnd Date Giovani Hagen MD [address] [place] [address] [place] [address] PCP - [facility] Faajfaam38/4/19Te MemberRelationshipSpecialtyStart DateEnd Date Giovani Hagen MD [address] [place] [address] [place] [address] PCP - [facility]03/27/19 MemberRelationshipSpecialtyStart DateEnd Date Giovani Hagen MD [address] [place] [address] [place] [address] PCP - [facility]03/27/19 MemberRelationshipSpecialtyStart DateEnd Date Giovani Hagen MD [address] [place] [address] [place] [address] PCP - [facility] [place] [facility]/ Giovani Hagen MD [address] [place] [address] [place] [address] PCP - [facility]08/30/22 MemberRelationshipSpecialtyStart DateEnd Date Giovani Hagen MD [address] [place] [address] [place] [address] PCP - [facility] [place] [facility]10/23/1911 Giovani Hagen MD [address] [place] [address] [place] [address] PCP - [facility]08/30/22am MemberRelationshipSpecialtyStart DateEnd Date Giovani Hagen MD [address] [place] [address] [place] [address] PCP - [facility] [place] [facility]10/23/1911 Giovani Hagen MD [address] [place] [address] [place] [address] PCP - [facility] Medicine08/30/22 MemberRelationshipSpecialtyStart DateEnd Date Giovani Hagen MD [address] [place] [address] [place] [address] PCP - [facility] [place] [facility]10/23/1911 Giovani Hagen MD [address] [place] [address] [place] [address] PCP - [facility]08/30/22 MemberRelationshipSpecialtyStart DateEnd Date Giovani Hagen MD [address] [place] [address] [place] [address] PCP - [facility] [place] [facility]10/23/1911 Giovani Hagen MD [address] [place] [address] [place] [address] PCP - [facility] Medicine08/30/22 MemberRelationshipSpecialtyStart DateEnd Date Giovani Hagen MD [address] [place] [address] [place] [address] PCP - [facility] [place] [facility]10/23/1911 Giovani Hagen MD [address] [place] [address] [place] [address] PCP - [facility] Medicine08/30/22 MemberRelationshipSpecialtyStart DateEnd Date Giovani Hagen MD [address] [place] [address] [place] [address] PCP - [facility]10/23/1911 Giovani Hagen MD [address] [place] [address] [place] [address] PCP - [facility]08/30/22 MemberRelationshipSpecialtyStart DateEnd Date Giovani Hagen MD [address] [place] [address] [place] [address] [facility]10/23/1911 Giovani Hagen MD [address] [place] [address] [place] [address] [facility] - [facility]08/30/22 MemberRelationshipSpecialtyStart DateEnd Date Giovani Hagen MD [address] [place] [address] [place] [address] [facility]10/23/1911 Giovani Hagen MD [address] [place] [address] [place] [address] [facility]08/30/22 MemberRelationshipSpecialtyStart DateEnd Date Giovani Hagen MD [address] [place] [address] [place] [address] [facility]10/23/1911 Giovani Hagen MD [address] [place] [address] [place] [address] PCP [facility] Medicine08/30/22 MemberRelationshipSpecialtyStart DateEnd Date Giovani Hagen MD [address] [place] [address] [place] [address] PCP - [facility] [place] [facility]10/23/1911 Giovani Hagen MD [address] [place] [address] [place] [address] PCP - [facility]08/30/22 MemberRelationshipSpecialtyStart DateEnd Date Giovani Hagen MD [address] [place] [address] [place] [address] PCP - [facility] [place] [facility]10/23/1911 Giovani Hagen MD [address] [place] [address] [place] [address] PCP - [facility]08/30/22 MemberRelationshipSpecialtyStart DateEnd Date Giovani Hagen MD [address] [place] [address] [place] [address] PCP - [facility] [place] [facility]10/23/1911 Giovani Hagen MD [address] [place] [address] [place] [address] PCP - [facility]08/30/22 MemberRelationshipSpecialtyStart DateEnd Date Giovani Hagen MD [address] [place] [address] [place] [address] PCP - [facility] [place] [facility]10/23/1911 Giovani Hagen MD [address] [place] [address] [place] [address] PCP - [facility] Medicine08/30/22 MemberRelationshipSpecialtyStart DateEnd Giovani Hagen MD [address] [place] [address] [place] [address] PCP - [facility] [place] [facility]10/23/1911 Giovani Hagen MD [address] [place] [address] [place] [address] PCP - [facility]08/30/22 MemberRelationshipSpecialtyStart DateEnd Giovani Hagen MD [address] [place] [address] [place] [address] PCP - [facility]10/23/1911 Giovani Hagen MD [address] [place] [address] [place] [address] PCP - [facility]08/30/22 MemberRelationshipSpecialtyStart DateEnd Giovani Hagen MD [address] [place] [address] [place] [address] PCP - [facility]10/23/1911 Giovnai Hagen MD [address] [place] [address] [place] [address] PCP - [facility]08/30/22 MemberRelationshipSpecialtyStart DateEnd Giovani Hagen MD [address] [place] [address] [place] [address] PCP - [facility]10/23/1911 Giovani Hagen MD [address] [place] [address] [place] [address] PCP - [facility]08/30/22Te MemberRelationshipSpecialtyStart DateEnd Date Giovani Hagen MD [address] [place] [address] [place] [address] PCP - [facility]10/23/1911 Giovani Hagen MD [address] [place] [address] [place] [address] PCP - [facility]08/30/22 MemberRelationshipSpecialtyStart DateEnd Date Giovani Hagen MD [address] [place] [address] [place] [address] PCP - [facility]10/23/1911 Giovani Hagen MD [address] [place] [address] [place] [address] PCP - [facility]08/30/22 MemberRelationshipSpecialtyStart DateEnd Date Giovani Hagen MD [address] [place] [address] [place] [address] PCP - [facility]10/23/1911 Giovani Hagen MD [address] [place] [address] [place] [address] PCP - [facility]08/30/22 MemberRelationshipSpecialtyStart DateEnd Date Giovani Hagen MD [address] [place] [address] [place] [address] PCP - [facility] [place] [facility]10/23/1911 Giovani Hagen MD [address] [place] [address] [place] [address] PCP - [facility] Medicine08/30/22 MemberRelationshipSpecialtyStart DateEnd Date Giovani Hagen MD [address] [place] [address] [place] [address] PCP - [facility] [place] [facility]10/23/1911 Giovani Hagen MD [address] [place] [address] [place] [address] PCP - [facility]08/30/22 MemberRelationshipSpecialtyStart DateEnd Date Giovani Hagen MD [address] [place] [address] [place] [address] PCP - [facility] [place] [facility]10/23/1911 Giovani Hagen MD [address] [place] [address] [place] [address] PCP - [facility] Medicine08/30/22 MemberRelationshipSpecialtyStart DateEnd Date Giovani Hagen MD [address] [place] [address] [place] [address] PCP - [facility]03/27/19 MemberRelationshipSpecialtyStart DateEnd Date Giovani Hagen MD [address] [place] [address] [place] [address] PCP - [facility] [place] [facility]10/23/1911 Giovani Hagen MD [address] [place] [address] [place] [address] PCP - [facility] Medicine08/30/22Team MemberRelationshipSpecialtyStart DateEnd Date Giovani Hagen MD [address] [place] [address] [place] [address] PCP - [facility]03/27/19 Deena Lyn, ISABEL [address] [place] [address] [place] [address] [facility]04/03/24Te MemberRelationshipSpecialtyStart DateEnd Date Giovani Hagen MD [address] [place] [address] [place] [address] PCP - [facility]03/27/19 Deena Lyn, GAME PROGRAMER [address] [place] [address] [place] [address] [facility]04/03/24Team MemberRelationshipSpecialtyStart DateEnd Date Giovani Hagen MD [address] [place] [address] [place] [address] PCP - [facility] [place] [facility]10/23/1911 Giovani Hagen MD [address] [place] [address] [place] [address] PCP - [facility]08/30/22Team MemberRelationshipSpecialtyStart DateEnd Date Giovani Hagen MD [address] [place] [address] [place] [address] PCP - [facility] [place] [facility]10/23/1911 Giovani Hagen MD [address] [place] [address] [place] [address] PCP - [facility] Medicine08/30/22 MemberRelationshipSpecialtyStart DateEnd Date Giovani Hagen MD [address] [place] [address] [place] [address] PCP - [facility] [place] [facility]10/23/1911 Giovani Hagen MD [address] [place] [address] [place] [address] PCP - [facility] Medicine08/30/22 MemberRelationshipSpecialtyStart DateEnd Date Giovani Hagen MD [address] [place] [address] [place] [address] PCP - [facility] [place] [facility]10/23/1911 Giovani Hagen MD [address] [place] [address] [place] [address] PCP - [facility] Medicine08/30/22 MemberRelationshipSpecialtyStart DateEnd Date Giovani Hagen MD [address] [place] [address] [place] [address] PCP - [facility] [place] [facility]10/23/1911 Giovani Hagen MD [address] [place] [address] [place] [address] PCP - [facility] Medicine08/30/22 MemberRelationshipSpecialtyStart DateEnd Date Giovani Hagen MD [address] [place] [address] [place] [address] PCP - [facility]10/23/1911 Giovani Hagen MD [address] [place] [address] [place] [address] PCP - [facility]08/30/22Team MemberRelationshipSpecialtyStart DateEnd Date Giovani Hagen MD [address] [place] [address] [place] [address] PCP - [facility]10/23/1911 Giovani Hagen MD [address] [place] [address] [place] [address] PCP - [facility]08/30/22 MemberRelationshipSpecialtyStart DateEnd Date Giovani Hagen MD [address] [place] [address] [place] [address] PCP - [facility]03/27/19 Deena Lyn, ISABEL [address] [place] [address] [place] [address] [facility]04/03/24Team MemberRelationshipSpecialtyStart DateEnd Date Giovani Hagen MD [address] [place] [address] [place] [address] PCP - [facility]10/23/1911 Giovani Hagen MD [address] [place] [address] [place] [address] PCP - [facility]08/30/22Team MemberRelationshipSpecialtyStart DateEnd Date Giovani Hagne MD [address] [place] [address] [place] [address] PCP - [facility]10/23/1911 Giovani Hagen MD [address] [place] [address] [place] [address] PCP - [facility]08/30/22Team MemberRelationshipSpecialtyStart DateEnd Date Giovani Hagen MD [address] [place] [address] [place] [address] PCP - [facility]10/23/1911 Giovani Hagen MD [address] [place] [address] [place] [address] PCP - [facility]08/30/22Team MemberRelationshipSpecialtyStart DateEnd Date Giovani Hagen MD [address] [place] [address] [place] [address] PCP - [facility]03/27/19 Deena Lyn CNP [address] [place] [address] [place] [address] [facility]04/03/24Team MemberRelationshipSpecialtyStart DateEnd Date Giovani Hagen MD [address] [place] [address] [place] [address] PCP - [facility]03/27/19 Deena Lyn CNP [address] [place] [address] [place] [address] [facility] Eygdooby95/11/24Team MemberRelationshipSpecialtyStart DateEnd Date Giovani Hagen MD [address] [place] [address] [place] [address] PCP - [facility] Wuiarbqf79/4/19 Deena Lyn, ISABEL [address] [place] [address] [place] [address] [facility] Jniuving86/11/24Team MemberRelationshipSpecialtyStart DateEnd Date Giovani Hagen MD [address] [place] [address] [place] [address] PCP - [facility] [place] [facility]10/23/1911 Giovani Hagen MD [address] [place] [address] [place] [address] PCP - [facility] Medicine08/30/22Team MemberRelationshipSpecialtyStart DateEnd Date Giovani Hagen MD [address] [place] [address] [place] [address] PCP - [facility] [place] [facility]10/23/1911 Giovani Hagen MD [address] [place] [address] [place] [address] PCP - [facility] Medicine08/30/22Team MemberRelationshipSpecialtyStart DateEnd Date Giovani Hagen MD [address] [place] [address] [place] [address] PCP - [facility] Bimvrxjr63/4/19 Deena Lyn CNP [address] [place] [address] [place] [address] [facility] Xovbvqyo70/11/24Team MemberRelationshipSpecialtyStart DateEnd Date Giovani Hagen MD [address] [place] [address] [place] [address] PCP - [facility] Hzbiufzs88/4/19 Deena Lyn, GAME PROGRAMER [address] [place] [address] [place] [address] [facility]04/03/24Te MemberRelationshipSpecialtyStart DateEnd Giovani Hagen MD [address] [place] [address] [place] [address] PCP - [facility] [place] [facility]/ Giovani Hagen MD [address] [place] [address] [place] [address] PCP - [facility] Medicine08/30/22 MemberRelationshipSpecialtyStart DateEnd Date Giovani Hagen MD [address] [place] [address] [place] [address] PCP - [facility] [place] [facility]10/23/1911 Giovani Hagen MD [address] [place] [address] [place] [address] PCP - [facility] Medicine08/30/22Team MemberRelationshipSpecialtyStart DateEnd Date Giovani Hagen MD [address] [place] [address] [place] [address] PCP - [facility]03/27/19 Deena Lyn CNP [address] [place] [address] [place] [address] [facility]04/03/24Team MemberRelationshipSpecialtyStart DateEnd Date Giovani Hagen MD [address] [place] [address] [place] [address] PCP - [facility] [place] [facility]/ Giovani Hagen MD [address] [place] [address] [place] [address] PCP - [facility]08/30/22Team MemberRelationshipSpecialtyStart DateEnd Date Giovani Hagen MD [address] [place] [address] [place] [address] PCP - [facility]/ Giovani Hagen MD [address] [place] [address] [place] [address] PCP - [facility]08/30/22Team MemberRelationshipSpecialtyStart DateEnd Date Giovani Hagen MD [address] [place] [address] [place] [address] PCP - [facility]03/27/19 Deena Lyn CNP [address] [place] [address] [place] [address] [facility]04/03/24Team MemberRelationshipSpecialtyStart DateEnd Date Giovani Hagen MD [address] [place] [address] [place] [address] [facility] Baclmguu41/4/19 Deena Lyn CNP [address] [place] [address] [place] [address] [facility] Xobumblw37/11/24Team MemberRelationshipSpecialtyStart DateEnd Date Giovani Hagen MD [address] [place] [address] [place] [address] PCP - [facility] [place] [facility]10/23/1911 Giovani Hagen MD [address] [place] [address] [place] [address] PCP - [facility] Medicine08/30/22Team MemberRelationshipSpecialtyStart DateEnd Date Giovani Hagen MD [address] [place] [address] [place] [address] PCP - [facility] [place] [facility]10/23/1911 Giovani Hagen MD [address] [place] [address] [place] [address] PCP - [facility] Medicine08/30/22Team MemberRelationshipSpecialtyStart DateEnd Date Giovani Hagen MD [address] [place] [address] [place] [address] PCP - [facility] [place] [facility]10/23/1911 Giovani Hagen MD [address] [place] [address] [place] [address] PCP - [facility] Medicine08/30/22Team MemberRelationshipSpecialtyStart DateEnd Date Giovani Hagen MD [address] [place] [address] [place] [address] [facility] - [facility]10/23/1911 Giovani Hagen MD [address] [place] [address] [place] [address] [facility] - [facility]08/30/22 MemberRelationshipSpecialtyStart DateEnd Date Giovani Hagen MD [address] [place] [address] [place] [address] [facility]10/23/1911 Giovani Hagen MD [address] [place] [address] [place] [address] [facility] - [facility]08/30/22 MemberRelationshipSpecialtyStart DateEnd Date Giovani Hagen MD [address] [place] [address] [place] [address] [facility]10/23/1911 Giovani Hagen MD [address] [place] [address] [place] [address] [facility]08/30/22 MemberRelationshipSpecialtyStart DateEnd Date Giovani Hagen MD [address] [place] [address] [place] [address] [facility]10/23/1911 Giovani Hagen MD [address] [place] [address] [place] [address] PCP - GeneralFamily Medicine08/30/22Team MemberRelationshipSpecialtyStart DateEnd Date Giovani Hagen MD [address] [place] [address] [place] [address] PCP - [facility] [place] [facility]10/23/1911 Giovani Hagen MD [address] [place] [address] [place] [address] PCP - GeneralFamily Medicine08/30/22Team MemberRelationshipSpecialtyStart DateEnd Date Giovani Hgaen MD [address] [place] [address] [place] [address] PCP - Generalmily Liqeofyi78/4/19 Deena Lyn, ISABEL [address] [facility] [address] [place] [address] Referringmily Egyrmxju26/11/24 Darwin Starr DO [address] [place] [address] ReferringOb/Gyn07/02/24Te MemberRelationshipSpecialtyStart DateEnd Date Giovani Hagen MD [address] [facility] [address] [place] [address] PCP - Generalmily Zfauoqid03/4/19 Deena Lyn, ISABEL [address] [place] [address] [place] [address] ReferringFamily [email or web address]/11/24 Darwin Starr DO [address] [place] [address] ReferringOb/Gyn3Team MemberRelationshipSpecialtyStart DateEnd Date Giovani Hagen MD [address] [place] [address] [place] [address] PCP - [facility] [place] [facility]10/23/1911 Giovani Hagen MD [address] [place] [address] [place] [address] PCP - [facility] Medicine08/30/22Team MemberRelationshipSpecialtyStart DateEnd Date Giovani Hagen MD [address] [place] [address] [place] [address] PCP - [facility] [place] [facility]10/23/1911 Giovani Hagen MD [address] [place] [address] [place] [address] PCP - [facility]08/30/22Te MemberRelationshipSpecialtyStart DateEnd Date Giovani Hagen MD [address] [place] [address] [place] [address] PCP - [facility] [place] [facility]10/23/1911 Giovani Hagen MD [address] [place] [address] [place] [address] PCP - [facility]08/30/22Team MemberRelationshipSpecialtyStart DateEnd Date Giovani Hagen MD [address] [place] [address] [place] [address] PCP - [facility] [place] [facility]10/23/1911 Giovani Hagen MD [address] [place] [address] [place] [address] PCP - [facility] Medicine08/30/22Team MemberRelationshipSpecialtyStart DateEnd Date Giovani Hagen MD [address] [place] [address] [place] [address] PCP - Medical [facility]10/23/1911 Giovani Hagen MD [address] [facility] [address] [place] [address] PCP - [facility]08/30/22 Team Status: Inactive Member Role Status Dates [...] MemberRelationshipSpecialtyStart DateEnd Date Giovani Hagen MD [address] [facility] [address] [place] [address] PCP - [facility] [place] [facility]10/23/1911 Giovani Hagen MD [address] [facility] [address] [place] [address] PCP - [facility]08/30/22Team MemberRelationshipSpecialtyStart DateEnd Date Giovani Hagen MD [address] [facility] [address] [place] [address] PCP - [facility] [place] [facility]10/23/1911 Giovani Hagen MD [address] [facility] [address] [place] [address] PCP - [facility] Medicine08/30/22Team MemberRelationshipSpecialtyStart DateEnd Date Giovani Hagen MD [address] [facility] [address] [place] [address] PCP - [facility]03/27/19 Deena Lyn, ISABEL [address] [facility] [address] [place] [address] [facility] Ccxbtpqs48/11/24 Darwin Starr DO [address] [place] [address] [place] [address] ReferringOb/Gyn07/02/24Team MemberRelationshipSpecialtyStart DateEnd Date Giovani Hagen MD [address] [facility] [address] [place] [address] PCP - [facility] [place] [facility]10/23/1911 Giovani Hagen MD [address] [facility] [address] [place] [address] PCP - [facility]08/30/22Team MemberRelationshipSpecialtyStart DateEnd Date Giovani Hagen MD [address] [facility] [address] [place] [address] PCP - [facility] [place] [facility]10/23/1911 Giovani Hagen MD [address] [facility] [address] [place] [address] PCP - GeneralFamily Medicine08/30/22Team MemberRelationshipSpecialtyStart DateEnd Date Giovani Hagen MD [address] [place] [address] [place] [address] PCP - [facility] [place] [facility]10/23/1911 Giovani Hagen MD [address] [place] [address] [place] [address] PCP - GeneralFamily Medicine08/30/22Team MemberRelationshipSpecialtyStart DateEnd Date Giovani Hagen MD [address] [place] [address] [place] [address] PCP - [facility] [place] [facility]10/23/1911 Giovani Hagen MD [address] [place] [address] [place] [address] PCP - [facility]mily Medicine08/30/22Team MemberRelationshipSpecialtyStart DateEnd Date Giovani Hagen MD [address] [place] [address] [place] [address] PCP - GeneralFamily Uglqstbk59/4/19 Deena Lyn, ISABEL [address] [place] [address] [place] [address] ReferringFamily Tuuiwgnv63/11/24 Darwin Starr DO [address] [place] [address] [place] [address] ReferringOb/Gyn07/02/24Team MemberRelationshipSpecialtyStart DateEnd Date Giovani Hagen MD [address] [place] [address] [place] [address] PCP - [facility] [place] [facility]10/23/1911 Giovani Hagen MD [address] [place] [address] [place] [address] PCP - GeneralFamily Medicine08/30/22Team MemberRelationshipSpecialtyStart DateEnd Date Giovani Hagen MD [address] [place] [address] [place] [address] PCP - [facility] [place] [facility]10/23/1911 Giovani Hagen MD [address] [place] [address] [place] [address] PCP - GeneralFamily Medicine08/30/22Team MemberRelationshipSpecialtyStart DateEnd Date Giovani Hagen MD [address] [place] [address] [place] [address] PCP - Generalmily Kkfaxkot02/4/19 Deena Lyn CNP [address] [place] [address] [place] [address] Referringmily Csvpomyy28/11/24 Darwin Starr DO [address] [place] [address] [place] [address] ReferringOb/Gyn07/02/24Team MemberRelationshipSpecialtyStart DateEnd Date Giovani Hagen MD [address] [place] [address] [place] [address] PCP - [facility] [place] [facility]10/23/1911 Giovani Hagen MD [address] [facility] [address] [place] [address] PCP - [facility] Medicine08/30/22 MemberRelationshipSpecialtyStart DateEnd Date Giovani Hagen MD [address] [place] [address] [place] [address] PCP - [facility] [place] [facility]10/23/1911 Giovani Hagen MD [address] [facility] [address] [place] [address] PCP - [facility]08/30/22 MemberRelationshipSpecialtyStart DateEnd Date Giovani Hagen MD [address] [facility] [address] [place] [address] PCP - Medical [facility]10/23/1911 Giovani Hagen MD [address] [facility] [address] [place] [address] PCP - [facility]08/30/22 MemberRelationshipSpecialtyStart DateEnd Date Giovani Hagen MD [address] [facility] [address] [place] [address] PCP - Generalmily Hhxxipdw67/4/19 Deena Lyn, GAME PROGRAMER [address] [facility] [address] [place] [address] ReferringFamily Ajhozake14/11/24 Darwin Starr DO [address] [place] [address] [place] [address] ReferringOb/Gyn07/02/24Team MemberRelationshipSpecialtyStart DateEnd Date Giovani Hagen MD [address] [place] [address] [place] [address] PCP - [facility] [place] [facility]10/23/1911 Giovani Hagen MD [address] [place] [address] [place] [address] PCP - GeneralFamily Medicine08/30/22Team MemberRelationshipSpecialtyStart DateEnd Date Giovani Hagen MD [address] [place] [address] [place] [address] PCP - [facility] [place] [facility]10/23/1911 Giovani Hagen MD [address] [facility] [address] [place] [address] PCP - GeneralFamily Medicine08/30/22Team MemberRelationshipSpecialtyStart DateEnd Date Giovani Hagen MD [address] [facility] [address] [place] [address] PCP - GeneralFamily Wwdqfwoj48/4/19 Deena Lyn, ISABEL [address] [facility] [address] [place] [address] ReferringFamily Eqatxyvb57/11/24 Darwin Starr DO [address] [place] [address] [place] [address] ReferringOb/Gyn07/02/24Team MemberRelationshipSpecialtyStart DateEnd Date Giovani Hagen MD [address] [place] [address] [place] [address] PCP - GeneralFamily Yfxdtmew45/4/19 Deena Lyn, ISABEL [address] [place] [address] [place] [address] ReferringFamily Qqiqsysg37/11/24 Darwin Starr DO [address] [facility] [place] [address] ReferringOb/Gyn07/02/24Team MemberRelationshipSpecialtyStart DateEnd Date Giovani Hagen MD [address] [place] [address] [place] [address] PCP - [facility] [place] [facility]10/23/1911 Giovani Hagen MD [address] [place] [address] [place] [address] PCP - Generalmily Medicine08/30/22Team MemberRelationshipSpecialtyStart DateEnd Date Giovani Hagen MD [address] [place] [address] [place] [address] PCP - GeneralFamily Hdcnkzyb10/4/19 Deena Lyn, GAME PROGRAMER [address] [place] [address] [place] [address] ReferringFamily Gyyeqnev54/11/24 Darwin Starr DO [address] [place], [place] [address] [place] [address] ReferringOb/Gyn07/02/24Team MemberRelationshipSpecialtyStart DateEnd Date Giovani Hagen MD [address] [place] [address] [place] [address] PCP - GeneralFamily Vbxlidqf87/4/19 Deena Lyn CNP [address] [place] [address] [place] [address] ReferringFamily Kbxcyfok14/11/24 Darwin Starr DO [address] [place] [address] [address] [place], [place] [address] ReferringOb/Gyn07/02/24Team MemberRelationshipSpecialtyStart DateEnd Date Giovani Hagen MD [address] [facility] [address] [place] [address] PCP - [facility] [place] [facility]10/23/1911 Giovani Hagen MD [address] [facility] [address] [place] [address] PCP - Generalmily Medicine08/30/22Team MemberRelationshipSpecialtyStart DateEnd Date Giovani Hagen MD [address] [facility] [address] [place] [address] PCP - [facility] [place] [facility]10/23/1911 Giovani Hagen MD [address] [facility] [address] [place] [address] PCP - Generalmily Medicine08/30/22Team MemberRelationshipSpecialtyStart DateEnd Date Giovani Hagen MD [address] [facility] [address] [place] [address] PCP - [facility] [place] [facility]10/23/1911 Giovani Hagen MD [address] [place] [address] [place] [address] PCP - [facility] Medicine08/30/22 MemberRelationshipSpecialtyStart DateEnd Date Giovani Hagen MD [address] [place] [address] [place] [address] PCP - [facility] [place] [facility]10/23/1911 Giovani Hagen MD [address] [place] [address] [place] [address] PCP - [facility]08/30/22 MemberRelationshipSpecialtyStart DateEnd Giovani Hagen MD [address] [place] [address] [place] [address] PCP - [facility]10/23/1911 Giovani Hagen MD [address] [place] [address] [place] [address] PCP - [facility]08/30/22 MemberRelationshipSpecialtyStart DateEnd Date Giovani Hagen MD [address] [place] [address] [place] [address] PCP - [facility]10/23/1911 Giovani Hagen MD [address] [place] [address] [place] [address] PCP - [facility]08/30/22 MemberRelationshipSpecialtyStart DateEnd Date Giovani Hagen MD [address] [place] [address] [place] [address] PCP - [facility]10/23/1911 Giovani Hagen MD [address] [place] [address] [place] [address] PCP - [facility]08/30/22 MemberRelationshipSpecialtyStart DateEnd Date Giovani Hagen MD [address] [place] [address] [place] [address] PCP - [facility]10/23/1911 Giovani Hagen MD [address] [place] [address] [place] [address] PCP - [facility]08/30/22 MemberRelationshipSpecialtyStart DateEnd Date Giovani Hagen MD [address] [place] [address] [place] [address] PCP - [facility]10/23/1911 Giovani Hagen MD [address] [place] [address] [place] [address] PCP - [facility]08/30/22 MemberRelationshipSpecialtyStart DateEnd Date Giovani Hagen MD [address] [place] [address] [place] [address] PCP - [facility]10/23/1911 Giovani Hagen MD [address] [place] [address] [place] [address] PCP - [facility]08/30/22 MemberRelationshipSpecialtyStart DateEnd Date Giovani Hagen MD [address] [place] [address] [place] [address] PCP - GeneralFamily Homhysto71/4/19 Deena Lyn, FLIGHT [employer] [address] [place] [address] [place] [address] ReferringFamily [email or web address]/11/24 Darwin Starr DO [address] [facility] [place] [address] ReferringOb/Gyn07/02/24Team MemberRelationshipSpecialtyStart DateEnd Date Giovani Hagen MD [address] [facility] [address] [place] [address] PCP - [facility] [place] [facility]10/23/1911 Giovani Hagen MD [address] [facility] [address] [place] [address] PCP - GeneralFamily Medicine08/30/22Team MemberRelationshipSpecialtyStart DateEnd Date Giovani Hagen MD [address] [facility] [address] [place] [address] PCP - GeneralFamily Rzjfwkgu55/4/19 Deena Lyn, FLIGHT [employer] [address] [facility] [address] [place] [address] ReferringFamily Radprtht62/11/24 Darwin Starr DO [address] [place] [address] ReferringOb/Gyn07/02/24Team MemberRelationshipSpecialtyStart DateEnd Date Giovani Hagen MD [address] [place] [address] [place] [address] PCP - [facility]10/23/1911 Giovani Hagen MD [address] [place] [address] [place] [address] PCP - [facility]08/30/22 MemberRelationshipSpecialtyStart DateEnd Date Giovani Hagen MD [address] [place] [address] [place] [address] [facility]10/23/1911 Giovani Hagen MD [address] [place] [address] [place] [address] [facility] - [facility]08/30/22 MemberRelationshipSpecialtyStart DateEnd Date Giovani Hagen MD [address] [place] [address] [place] [address] [facility]10/23/1911 Giovani Hagen MD [address] [place] [address] [place] [address] [facility]08/30/22 MemberRelationshipSpecialtyStart DateEnd Date Giovani Hagen MD [address] [place] [address] [place] [address] [facility]10/23/1911 Giovani Hagen MD [address] [place] [address] [place] [address] [facility]08/30/22 MemberRelationshipSpecialtyStart DateEnd Date Giovani Hagen MD [address] [place] [address] [place] [address] PCP - [facility]10/23/1911 Giovani Hagen MD [address] [place] [address] [place] [address] PCP - [facility]08/30/22 MemberRelationshipSpecialtyStart DateEnd Date Giovani Hagen MD [address] [place] [address] [place] [address] PCP - [facility]10/23/1911 Giovani Hagen MD [address] [place] [address] [place] [address] PCP - [facility]08/30/22 MemberRelationshipSpecialtyStart DateEnd Date Giovani Hagen MD [address] [place] [address] [place] [address] PCP - [facility]10/23/1911 Giovani Hagen MD [address] [place] [address] [place] [address] PCP - [facility]08/30/22 MemberRelationshipSpecialtyStart DateEnd Date Giovani Hagen MD [address] [place] [address] [place] [address] PCP - [facility]10/23/1911 Giovani Hagen MD [address] [place] [address] [place] [address] PCP - [facility] Medicine08/30/22Te MemberRelationshipSpecialtyStart DateEnd Date Giovani Hagen MD [address] [place] [address] [place] [address] PCP - [facility] [place] [facility]10/23/1911 Giovani Hagen MD [address] [facility] [address] [place] [address] PCP - [facility]08/30/22Te MemberRelationshipSpecialtyStart DateEnd Date Giovani Hagen MD [address] [facility] [address] [place] [address] PCP - [facility] [place] [facility]10/23/1911 Giovani Hagen MD [address] [facility] [address] [place] [address] PCP - [facility]08/30/22Te MemberRelationshipSpecialtyStart DateEnd Date Giovani Hagen MD [address] [facility] [address] [place] [address] PCP - [facility] [place] [facility]10/23/1911 Giovani Hagen MD [address] [facility] [address] [place] [address] PCP - [facility]08/30/22 Source Comments (unrecognize d section and content) In the event this informatio n is protected by the Federal Confidentiality of Alcohol and Drug Abuse Patient Records regulations: The Federal rules restrict any use of the information to criminally investigate or prosecute any alcohol or drug abuse patient.[facility] the event this information is protected by the Federal Confidentiality of Alcohol and Drug Abuse Patient Records regulations: The Federal rules restrict any use of the information to criminally investigate or prosecute any alcohol or drug abuse patient.[facility] HospitalIn the event this information is protected by the Federal Confidentiality of Alcohol and Drug Abuse Patient Records regulations: The Federal rules restrict any use of the information to criminally investigate or prosecute any alcohol or drug abuse patient.[facility] HospitalIn the event this information is protected by the Federal Confidentiality of Alcohol and Drug Abuse Patient Records regulations: The Federal rules restrict any use of the information to criminally investigate or prosecute any alcohol or drug abuse patient.[facility] HospitalIn the event this information is protected by the Federal Confidentiality of Alcohol and Drug Abuse Patient Records regulations: The Federal rules restrict any use of the information to criminally investigate or prosecute any alcohol or drug abuse patient.[facility] HospitalIn the event this information is protected by the Federal Confidentiality of Alcohol and Drug Abuse Patient Records regulations: The Federal rules restrict any use of the information to criminally investigate or prosecute any alcohol or drug abuse patient.[facility] HospitalIn the event this information is protected by the Federal Confidentiality of Alcohol and Drug Abuse Patient Records regulations: The Federal rules restrict any use of the information to criminally investigate or prosecute any alcohol or drug abuse patient.[facility] HospitalIn the event this information is protected by the Federal Confidentiality of Alcohol and Drug Abuse Patient Records regulations: The Federal rules restrict any use of the information to criminally investigate or prosecute any alcohol or drug abuse patient.[facility] HospitalIn the event this information is protected by the Federal Confidentiality of Alcohol and Drug Abuse Patient Records regulations: The Federal rules restrict any use of the information to criminally investigate or prosecute any alcohol or drug abuse patient.[facility] HospitalIn the event this information is protected by the Federal Confidentiality of Alcohol and Drug Abuse Patient Records regulations: The Federal rules restrict any use of the information to criminally investigate or prosecute any alcohol or drug abuse patient.[facility] HospitalIn the event this information is protected by the Federal Confidentiality of Alcohol and Drug Abuse Patient Records regulations: The Federal rules restrict any use of the information to criminally investigate or prosecute any alcohol or drug abuse patient.[facility] HospitalIn the event this information is protected by the Federal Confidentiality of Alcohol and Drug Abuse Patient Records regulations: The Federal rules restrict any use of the information to criminally investigate or prosecute any alcohol or drug abuse patient.[facility] HospitalIn the event this information is protected by the Federal Confidentiality of Alcohol and Drug Abuse Patient Records regulations: The Federal rules restrict any use of the information to criminally investigate or prosecute any alcohol or drug abuse patient.[facility] HospitalIn the event this information is protected by the Federal Confidentiality of Alcohol and Drug Abuse Patient Records regulations: The Federal rules restrict any use of the information to criminally investigate or prosecute any alcohol or drug abuse patient.[facility] HospitalIn the event this information is protected by the Federal Confidentiality of Alcohol and Drug Abuse Patient Records regulations: The Federal rules restrict any use of the information to criminally investigate or prosecute any alcohol or drug abuse patient.[facility] HospitalIn the event this information is protected by the Federal Confidentiality of Alcohol and Drug Abuse Patient Records regulations: The Federal rules restrict any use of the information to criminally investigate or prosecute any alcohol or drug abuse patient.[facility] HospitalIn the event this information is protected by the Federal Confidentiality of Alcohol and Drug Abuse Patient Records regulations: The Federal rules restrict any use of the information to criminally investigate or prosecute any alcohol or drug abuse patient.[facility] HospitalIn the event this information is protected by the Federal Confidentiality of Alcohol and Drug Abuse Patient Records regulations: The Federal rules restrict any use of the information to criminally investigate or prosecute any alcohol or drug abuse patient.[facility] HospitalIn the event this information is protected by the Federal Confidentiality of Alcohol and Drug Abuse Patient Records regulations: The Federal rules restrict any use of the information to criminally investigate or prosecute any alcohol or drug abuse patient.[facility] HospitalIn the event this information is protected by the Federal Confidentiality of Alcohol and Drug Abuse Patient Records regulations: The Federal rules restrict any use of the information to criminally investigate or prosecute any alcohol or drug abuse patient.[facility] HospitalIn the event this information is protected by the Federal Confidentiality of Alcohol and Drug Abuse Patient Records regulations: The Federal rules restrict any use of the information to criminally investigate or prosecute any alcohol or drug abuse patient.[facility] HospitalIn the event this information is protected by the Federal Confidentiality of Alcohol and Drug Abuse Patient Records regulations: The Federal rules restrict any use of the information to criminally investigate or prosecute any alcohol or drug abuse patient.[facility] HospitalIn the event this information is protected by the Federal Confidentiality of Alcohol and Drug Abuse Patient Records regulations: The Federal rules restrict any use of the information to criminally investigate or prosecute any alcohol or drug abuse patient.[facility] HospitalIn the event this information is protected by the Federal Confidentiality of Alcohol and Drug Abuse Patient Records regulations: The Federal rules restrict any use of the information to criminally investigate or prosecute any alcohol or drug abuse patient.[facility] HospitalIn the event this information is protected by the Federal Confidentiality of Alcohol and Drug Abuse Patient Records regulations: The Federal rules restrict any use of the information to criminally investigate or prosecute any alcohol or drug abuse patient.[facility] HospitalIn the event this information is protected by the Federal Confidentiality of Alcohol and Drug Abuse Patient Records regulations: The Federal rules restrict any use of the information to criminally investigate or prosecute any alcohol or drug abuse patient.[facility] HospitalIn the event this information is protected by the Federal Confidentiality of Alcohol and Drug Abuse Patient Records regulations: The Federal rules restrict any use of the information to criminally investigate or prosecute any alcohol or drug abuse patient.[facility] HospitalIn the event this information is protected by the Federal Confidentiality of Alcohol and Drug Abuse Patient Records regulations: The Federal rules restrict any use of the information to criminally investigate or prosecute any alcohol or drug abuse patient.[facility] HospitalIn the event this information is protected by the Federal Confidentiality of Alcohol and Drug Abuse Patient Records regulations: The Federal rules restrict any use of the information to criminally investigate or prosecute any alcohol or drug abuse patient.[facility] HospitalIn the event this information is protected by the Federal Confidentiality of Alcohol and Drug Abuse Patient Records regulations: The Federal rules restrict any use of the information to criminally investigate or prosecute any alcohol or drug abuse patient.[facility] HospitalIn the event this information is protected by the Federal Confidentiality of Alcohol and Drug Abuse Patient Records regulations: The Federal rules restrict any use of the information to criminally investigate or prosecute any alcohol or drug abuse patient.[facility] HospitalIn the event this information is protected by the Federal Confidentiality of Alcohol and Drug Abuse Patient Records regulations: The Federal rules restrict any use of the information to criminally investigate or prosecute any alcohol or drug abuse patient.[facility] HospitalIn the event this information is protected by the Federal Confidentiality of Alcohol and Drug Abuse Patient Records regulations: The Federal rules restrict any use of the information to criminally investigate or prosecute any alcohol or drug abuse patient.[facility] HospitalIn the event this information is protected by the Federal Confidentiality of Alcohol and Drug Abuse Patient Records regulations: The Federal rules restrict any use of the information to criminally investigate or prosecute any alcohol or drug abuse patient.[facility] HospitalIn the event this information is protected by the Federal Confidentiality of Alcohol and Drug Abuse Patient Records regulations: The Federal rules restrict any use of the information to criminally investigate or prosecute any alcohol or drug abuse patient.[facility] HospitalIn the event this information is protected by the Federal Confidentiality of Alcohol and Drug Abuse Patient Records regulations: The Federal rules restrict any use of the information to criminally investigate or prosecute any alcohol or drug abuse patient.[facility] HospitalIn the event this information is protected by the Federal Confidentiality of Alcohol and Drug Abuse Patient Records regulations: The Federal rules restrict any use of the information to criminally investigate or prosecute any alcohol or drug abuse patient.[facility] HospitalIn the event this information is protected by the Federal Confidentiality of Alcohol and Drug Abuse Patient Records regulations: The Federal rules restrict any use of the information to criminally investigate or prosecute any alcohol or drug abuse patient.[facility] HospitalIn the event this information is protected by the Federal Confidentiality of Alcohol and Drug Abuse Patient Records regulations: The Federal rules restrict any use of the information to criminally investigate or prosecute any alcohol or drug abuse patient.[facility] HospitalIn the event this information is protected by the Federal Confidentiality of Alcohol and Drug Abuse Patient Records regulations: The Federal rules restrict any use of the information to criminally investigate or prosecute any alcohol or drug abuse patient.[facility] HospitalIn the event this information is protected by the Federal Confidentiality of Alcohol and Drug Abuse Patient Records regulations: The Federal rules restrict any use of the information to criminally investigate or prosecute any alcohol or drug abuse patient.[facility] HospitalIn the event this information is protected by the Federal Confidentiality of Alcohol and Drug Abuse Patient Records regulations: The Federal rules restrict any use of the information to criminally investigate or prosecute any alcohol or drug abuse patient.[facility] HospitalIn the event this information is protected by the Federal Confidentiality of Alcohol and Drug Abuse Patient Records regulations: The Federal rules restrict any use of the information to criminally investigate or prosecute any alcohol or drug abuse patient.[facility] HospitalIn the event this information is protected by the Federal Confidentiality of Alcohol and Drug Abuse Patient Records regulations: The Federal rules restrict any use of the information to criminally investigate or prosecute any alcohol or drug abuse patient.[facility] HospitalIn the event this information is protected by the Federal Confidentiality of Alcohol and Drug Abuse Patient Records regulations: The Federal rules restrict any use of the information to criminally investigate or prosecute any alcohol or drug abuse patient.[facility] HospitalIn the event this information is protected by the Federal Confidentiality of Alcohol and Drug Abuse Patient Records regulations: The Federal rules restrict any use of the information to criminally investigate or prosecute any alcohol or drug abuse patient.[facility] HospitalIn the event this information is protected by the Federal Confidentiality of Alcohol and Drug Abuse Patient Records regulations: The Federal rules restrict any use of the information to criminally investigate or prosecute any alcohol or drug abuse patient.[facility] HospitalIn the event this information is protected by the Federal Confidentiality of Alcohol and Drug Abuse Patient Records regulations: The Federal rules restrict any use of the information to criminally investigate or prosecute any alcohol or drug abuse patient.[facility] HospitalIn the event this information is protected by the Federal Confidentiality of Alcohol and Drug Abuse Patient Records regulations: The Federal rules restrict any use of the information to criminally investigate or prosecute any alcohol or drug abuse patient.[facility] HospitalIn the event this information is protected by the Federal Confidentiality of Alcohol and Drug Abuse Patient Records regulations: The Federal rules restrict any use of the information to criminally investigate or prosecute any alcohol or drug abuse patient.[facility] HospitalIn the event this information is protected by the Federal Confidentiality of Alcohol and Drug Abuse Patient Records regulations: The Federal rules restrict any use of the information to criminally investigate or prosecute any alcohol or drug abuse patient.[facility] HospitalIn the event this information is protected by the Federal Confidentiality of Alcohol and Drug Abuse Patient Records regulations: The Federal rules restrict any use of the information to criminally investigate or prosecute any alcohol or drug abuse patient.[facility] HospitalIn the event this information is protected by the Federal Confidentiality of Alcohol and Drug Abuse Patient Records regulations: The Federal rules restrict any use of the information to criminally investigate or prosecute any alcohol or drug abuse patient.[facility] HospitalIn the event this information is protected by the Federal Confidentiality of Alcohol and Drug Abuse Patient Records regulations: The Federal rules restrict any use of the information to criminally investigate or prosecute any alcohol or drug abuse patient.[facility] HospitalIn the event this information is protected by the Federal Confidentiality of Alcohol and Drug Abuse Patient Records regulations: The Federal rules restrict any use of the information to criminally investigate or prosecute any alcohol or drug abuse patient.[facility] HospitalIn the event this information is protected by the Federal Confidentiality of Alcohol and Drug Abuse Patient Records regulations: The Federal rules restrict any use of the information to criminally investigate or prosecute any alcohol or drug abuse patient.[facility] HospitalIn the event this information is protected by the Federal Confidentiality of Alcohol and Drug Abuse Patient Records regulations: The Federal rules restrict any use of the information to criminally investigate or prosecute any alcohol or drug abuse patient.[facility] HospitalIn the event this information is protected by the Federal Confidentiality of Alcohol and Drug Abuse Patient Records regulations: The Federal rules restrict any use of the information to criminally investigate or prosecute any alcohol or drug abuse patient.[facility] HospitalIn the event this information is protected by the Federal Confidentiality of Alcohol and Drug Abuse Patient Records regulations: The Federal rules restrict any use of the information to criminally investigate or prosecute any alcohol or drug abuse patient.[facility] HospitalIn the event this information is protected by the Federal Confidentiality of Alcohol and Drug Abuse Patient Records regulations: The Federal rules restrict any use of the information to criminally investigate or prosecute any alcohol or drug abuse patient.[facility] Reason for Visit (unrecogniz ed section and content) ReasonCommentsLiver DiseaseHepatic SteatosisReasonCommentsRadiology CTReason CommentsResultsReasonCommentsAppointmentReasonCommentsGastroparesisEGG test ReasonCommentsMedication PreauthorizationMotegrityReasonCommentsConsultReason CommentsMedication PreauthorizationPA for IbsrelaSpecialtyDiagnoses / Procedures Referred By ContactReferred To ContactCT IMAGING Diagnoses Bilious vomiting with nausea Right sided abdominal pain Nausea Procedures CT ABD/PEL WO IVCON CT ABD & [place] [address] [place] [address] [place] [id number] Referral IDStatusReasonStart DateExpiration DateVisits RequestedVisits [id number] Auto-Generated Referral [id number] UpdateReferral & Records are in Care EverywhereReasonCommentsEventZIO PATCHReasonOnset DateCommentsPalpitations 12/28/20238300Mgutkle99/05/2024ReasonOnset DateCommentsPT Initial Eval1 Tried to contact to schedule PT Eval for cervical radiculopathy; but had to lm requesting call back.Call Back01/29/2024She contacted and we scheduled PT Eval 02/04 w/ Zhen Burgess PT.ReasonOnset DateCommentsLab rvjdfhx8512/18/2023 ReasonCommentsAnkle PainReasonOnset DateCommentsMed Wvsueu554ReasonOnset DateCommentsMed Gbvsrk074ReasonOnset DateCommentsMed Nzzsjz2503/07/2024 ReasonCommentsGynecologic ExamReasonOnset DateCommentsMed Mhaokb704Reason Onset DateCommentsMed Jlzxyl224ReasonCommentsshaking handsReasonComments Weight CheckPt started this a month agoReasonCommentsReceived Outside Medical RecordsThe Reconstruction InstituteReasonCommentsReceived Outside Medical RecordsCardio Clearance The Reconstruction InstituteReasonCommentsBack Pain ReasonCommentsDyspareuniaReasonOnset DateCommentsMed Bbkurq344Reason CommentsRecheckReasonOnset DateCommentsMed Fpdarp5504/30/2024ReasonOnset Date CommentsMed Wgavqs3104/30/2024ReasonCommentsPatient Nbmgbz81/17/24 Echo Faxed ReasonCommentsAnkle SprainSpecialtyDiagnoses / ProceduresReferred By Contact Referred To ContactPodiatry Diagnoses Sprain of anterior talofibular ligament of right ankle, subsequent encounter Procedures [place] OFFICE[facility]OUTPATIENT [facility] Giovani Hagen MD [address] [facility] [address] [place] [address] Phone: tel: fax: Prateek Pitts DPM [address] [facility] [address] [place] [address] Phone: tel: fax: Referral IDStatusReasonStart DateExpiration DateVisits RequestedVisits [id number] Specialty Services Required 12/30/040602SgenxjYounzzotCarBlusNiozpdnrTswjlgNjlpb DateCommentsMed Mxhsyf4605/08/2024ReasonCommentsnext stepsReasonCommentsFollow-upFU RT ankle- discuss surgeryReasonCommentsPre-op VisitPt present today for a pre operative visit. Pt is scheduled for aReasonCommentsResultsC diffReasonCommentsPost-op VisitReasonOnset DateCommentsMed Hasieo3806/03/2024ReasonCommentsAnxietyDiscuss FMLA paperworkReasonOnset DateCommentsMed Wpdatw4206/18/2024ReasonCommentsPost-op 1st post- rt lateral ankle stabilizationReasonCommentsFoot/ankle Post-opWK 2 post opReasonCommentsPainful Intercoursebleeding with intercourseReasonComments Post-op3 week post opReasonCommentsAnxietyReasonCommentsVaginal ProblemPt presents today for consult - painful intercourseReasonCommentsFoot/ankle Post-op WEEK 6 POST OPReasonOnset DateCommentsMed Gpidoz1707/31/2024ReasonComments Foot/ankle Post-opWK 9 post opReasonCommentsFoot/ankle Post-opWk 10 post op ReasonOnset XrkmAvtpceckEvxmqsmnivlc29/05/2025ReasonOnset DateCommentsMed Refill 08/28/2024ReasonCommentsMed RefillReasonCommentsFoot/ankle Post-opWK 12 post op ReasonCommentsER Follow-upReasonCommentsHemorrhoidsReasonCommentsPT Eval SpecialtyDiagnoses / ProceduresReferred By ContactReferred To ContactREHAB AND SPORTS THERAPY INS Diagnoses Pelvic floor dysfunction Chronic constipation Procedures CONSULT TO PHYSICAL THERAPY PHYSICAL THERAPY EVALUATION HIGH COMPLEX 45 MINS THERAPEUTIC EXERCISES RE, EA 15 MIN. Mario Harper, FLIGHT ATTENDANT [employer] [address] [place] [address] Phone: tel: fax: [facility] [address] [place] [address] Referral IDStatusReasonStart DateExpiration DateVisits RequestedVisits [id number] Auto-Generated Referral [id number] Gen RMPSpecialtyDiagnoses / Procedures Referred By ContactReferred To ContactXR IMAGING Diagnoses Pelvic floor dysfunction Chronic constipation Procedures XR ABDOMEN 1V SUPINE RADIOLOGIC EXAM ABDOMEN 1 VIEW Mario Harper APRN.[employer] [address] [place] [address] Phone: tel: fax: [place] [id number] Referral IDStatusReasonStart DateExpiration DateVisits RequestedVisits [id number] Auto-Generated Referral [id number] RefillDoxepin, Ativan, Adderall both 10 and 30 mgReasonCommentsAnkle PainRT ankle injuryReasonCommentslab resultsReason Onset DateCommentsdose correction on med12/16/2024ReasonCommentsAnkle PainF/U RT ankle sinus tarsi inj d6ImsoviXvuzijqmUzxdhzfPyogmnicnTcjqrhhmq / Procedures Referred By ContactReferred To Contact Diagnoses Other specified dyspareunia Pelvic pain in female Procedures OFFICE/OUTPATIENT [facility] 60 MINUTES Javy Boudreaux MD [address] [address] Phone: tel: fax: Referral IDStatusReasonStart DateExpiration DateVisits RequestedVisits [id number] PCP Requested Referral Auto-Generated Referral 1ReasonOnset DateCommentsMed Ypchge7801/22/2025ReasonComments Follow-upF/U LT grt nail avulsionReasonOnset DateCommentsMed Vqxmtv4502/27/2025 ReasonCommentsAnkle PainF/U LT foot sinus tarsi inj m6UxrxvmAtbnq DateComments sent Goals (unrecognized section and content) Goals may [...] BE BASED ON THE PRIMARY CLINICAL RECORDS. [facility]. provides no warranty or guarantee of the accuracy or completeness of information in this document.
[2025-03-27] MEDS: METHYLPREDNISOLONE SOD SUCC PF 125 MG/2 ML VIAL IVP (11:55)
[2025-03-27] MEDS: DIPHENHYDRAMINE HCL 50 MG/ML VIAL 25 MG IVP (11:55)
[2025-03-27 13:00] LABS: Glucose Urine UA NEGATIVE (NEGATIVE)
[2025-03-27] MEDS: KETOROLAC TROMETHAMINE 30 MG/ML VIAL IVP (13:04)
[2025-03-27 13:06] LABS: Cast Seen? NONE SEEN #/LPF (NONE SEEN); Crystals Seen? None Seen #/HPF (None Seen); Urine Culture Indicated YES-FRMC
[2025-03-27 13:09] LABS: Cannabinoid Screen Urine POSITIVE (NEGATIVE); Methamphetamines Screen Urine NEGATIVE (NEGATIVE); Tricyclic Antidepressant Urine POSITIVE (NEGATIVE)
== END 2025-03-27 14:13 | disposition home or self-care (01) ==
PROVIDERS: Emergency Provider Emergency Medicine; PCP Family Medicine
DX: R51.9 Headache, unspecified (principal); Z87.891 Personal history of nicotine dependence
CPT/HCPCS: 36415; 70450; 80048; 80307; 81001; 85025; 87086; 93005; 96374; 96375; 99285; J1200; J1885; J2919